=== PATIENT | female | born 1980 | race Caucasian/White ===

== ENCOUNTER → 2017-06-28 10:46 | Outpatient (CLI) | payer MEDICARE, MEDICAID, SELFPAY ==
--- NOTE | 2017-06-28 10:53 | ECHOD_ITS ---
Reason For Study: chest pain Procedure This was a 2D Doppler, Color Flow transthoracic echocardiogram. Exam performed in department. Left Ventricle Normal size and thickness. The estimated ejection fraction is 65 %. Normal diastology for age. No regional wall motion abnormalities noted. Right Ventricle Normal size and thickness. Normal systolic function. Atria Normal left atrium. Normal right atrium. Normal atrial septum. Mitral Valve The mitral valve is structurally normal. No prolapse or stenosis seen. Tricuspid Valve Normal tricuspid valve. Trivial tricuspid valve insufficiency. Right ventricular systolic pressure estimated to be 32 mmHg. Aortic Valve Trisinus/trileaflet aortic valve. Trivial aortic valve insufficiency. Pulmonic Valve Normal pulmonic valve. Great Vessels Normal aortic root. Normal arch. Normal inferior vena cava. Inferior vena cava collapse with sniff. Pericardium/Pleural No pericardial effusion. MMode/2D Measurements & Calculations LVIDd: 4.4 cm IVSd: 0.70 cm Ao root diam: 2.7 cm LVIDs: 3.1 cm LVPWd: 0.75 cm LA dimension: 3.9 cm RVDd: 2.8 cm FS: 30.4 % LAV(MOD-bp): 54.5 ml LA A4 area: 18.0 cm2 RA A4 area: 15.8 cm2 LAV(MOD-bp) Indexed: 26.8 ml/m2 LAV(MOD-sp2): 50.0 ml LAV(MOD-sp4): 56.1 ml Doppler Measurements & Calculations MV E max bridger: 87.9 cm/sec Lat Peak E' Bridger: 11.4 cm/sec Med Peak E' Bridger: 8.8 cm/sec MV A max bridger: 78.2 cm/sec E/E' lat: 7.7 E/E' med: 10.0 MV E/A: 1.1 Ao V2 max: 117.5 cm/sec LV V1 max: 94.8 cm/sec PA V2 max: 104.1 cm/sec Ao max P.5 mmHg LV V1 max P.6 mmHg PI end-d bridger: 64.9 cm/sec TR max bridger: 244.2 cm/sec TR max P.0 mmHg Interpretation Summary The estimated ejection fraction is 65 %. Normal diastology for age. Trivial tricuspid valve insufficiency. Right ventricular systolic pressure estimated to be 32 mmHg. There is no comparison study available. Ordering Physician: Will Shukla Performed By: Nicole Price RDCS, RVT
== END ==
PROVIDERS: Family Provider Family Medicine; PCP Family Medicine; Visit Provider Family Medicine
DX: R07.89 Other chest pain (principal); R00.2 Palpitations; R06.09 Other forms of dyspnea
CPT/HCPCS: 93225; 93226; 93306

== ENCOUNTER → 2017-07-18 12:42 | Outpatient (CLI) | payer MEDICARE, MEDICAID, SELFPAY ==
--- NOTE | 2017-07-18 12:48 | STE_ITS ---
Reason For Study: Chest Pain Stress Results Protocol: Nabeel Protocol Maximum Predicted HR: 185 bpm Target HR: 157 bpm% Max imum Predicted HR: 91 % DurationHeart Rate Stage (mm:ss) (bpm) BPCom ment Baseline 83 128/86 0.1 ML Definity Stage 1 3:00 15 1 144/82 Stage 2 1:31 16 9 / 0.1 ML definity Recoveryt 106 120/6 8 Stress Duration: 4:31 mm:ss Maximum Stress HR: 169 bpmM ETS: 7 Baseline Echocardiogram Findings Stress Echo Wall motion Data Resting WMIntermediate WMStress WM Resting Wall Motion Wall Motion Stress All segments Normal. All segments Hyperkinetic. Ejection Fraction 65 %. Ejection Fraction 75 %. Stress Results Heart rate response: C/W deconditioned heart rate response Blood pressure response: normal resting BP - appropriate response Arrhytmias: none Functional capacity: decreased Stopped secondary to: dyspnea; leg discomfort. EKG Data The baseline ECG displays normal sinus rhythm. The peak exercise ECG demonstrated somtic / motion artifact with no obvious ECG changes. Symptoms with Stress No c/o chest discomfort during exercise / recovery. Interpretation Summary Negative (Adequate) Stress Echocardiogram Ordering Physician: Will Shukla Referring Physician: Will Shukla Performed By: Nicole Price, [place], RVT
== END ==
PROVIDERS: Family Provider Family Medicine; PCP Family Medicine; Visit Provider Family Medicine
DX: R07.89 Other chest pain (principal); R00.2 Palpitations; R06.09 Other forms of dyspnea
CPT/HCPCS: 93017; 93350; Q9957; A4216; C8928

== ENCOUNTER 2017-07-18 13:45 | Emergency (ER) | payer MEDICARE, MEDICAID, SELFPAY ==
[2017-07-18 13:46] VITALS: BP 154/112; PULSE 126; RESP 16; TEMP 36.2; BMI 44.4
--- NOTE | 2017-07-18 15:10 | ED.VISSUMM ---
- ER Visit Summary Date of Service: 07/18/17 Chief Complaint: Diabetic foot wound History of Present Illness: The patient is a 36 F patient presenting for evaluation secondary to a diabetic foot wound. Patient has a history diabetes, states that her had and does not look to her feet in approximately 4 days, and she started to notice some pain in her left foot today. She states that it has been associated with pain with walking, and some mild chills and a wound on the sole of her left foot. She does not recall any injuries. Review of systems otherwise negative. Physical Examination: Patient is afebrile, there is some triage tachycardia of 126 but upon my exam patient's heart rate was 90. Lower extremity exam shows evidence of a diabetic foot wound over the sole of the first metatarsal phalangeal joint. No evidence of surrounding erythema. No overlying warmth. Normal range of motion of the foot and ankle. Test Results: None indicated Emergency Department Course and Treatment: Patient presented secondary to a diabetic foot wound. She is afebrile, wound is relatively new within the last 4 days, and she is nontoxic-appearing I do not believe the workup or x-ray are necessary at this point. Patient will be started on a course of Cipro was instructed on strict foot care and follow-up with her svp [employer] sales food [employer] cooking in the next 3 days. Disposition: Discharge Impression: 1. Diabetic foot wound This note was generated with smsPREP dictation software. It may contain incorrect words, spelling, and punctuation that were not noted in review of the chart prior to signing ED Disposition - Plan for ED Patient: Chief Complaint: Wound Diagnosis: Wound, open, foot Instructions: ED Foot Care Diabetic Prescriptions: Ciprofloxacin [Cipro] 500 mg PO BID #14 tab Additional Instructions: Followup with your [employer] within the next 3 days
--- NOTE | 2017-07-18 15:14 | ED.DCSUM_ITS ---
- ER Visit Summary Date of Service: 07/18/17 Chief Complaint: Diabetic foot wound History of Present Illness: The patient is a 36 F patient presenting for evaluation secondary to a diabetic foot wound. Patient has a history diabetes, states that her had and does not look to her feet in approximately 4 days, and she started to notice some pain in her left foot today. She states that it has been associated with pain with walking, and some mild chills and a wound on the sole of her left foot. She does not recall any injuries. Review of systems otherwise negative. Physical Examination: Patient is afebrile, there is some triage tachycardia of 126 but upon my exam patient's heart rate was 90. Lower extremity exam shows evidence of a diabetic foot wound over the sole of the first metatarsal phalangeal joint. No evidence of surrounding erythema. No overlying warmth. Normal range of motion of the foot and ankle. Test Results: None indicated Emergency Department Course and Treatment: Patient presented secondary to a diabetic foot wound. She is afebrile, wound is relatively new within the last 4 days, and she is nontoxic-appearing I do not believe the workup or x-ray are necessary at this point. 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 Disposition: Discharge Impression: 1. Diabetic foot wound This note was generated with Visier dictation software. It may contain incorrect words, spelling, and punctuation that were not noted in review of the chart prior to signing ED Disposition - Plan for ED Patient: Chief Complaint: Wound Diagnosis: Wound, open, foot Instructions: ED Foot Care Diabetic Prescriptions: Ciprofloxacin [Cipro] 500 mg PO BID #14 tab Additional Instructions: Followup with your hedge fund principal within the next 3 days
== END 2017-07-18 15:54 | disposition home or self-care (01) ==
PROVIDERS: Emergency Provider Emergency Medicine; Family Provider Family Medicine; PCP Family Medicine
DX: E11.69 Type 2 diabetes mellitus with other specified complication (principal); S91.302A Unspecified open wound, left foot, initial encounter; X58.XXXA Exposure to other specified factors, initial encounter; Y93.89 Activity, other specified; Y92.9 Unspecified place or not applicable; Y99.9 Unspecified external cause status; Q05.9 Spina bifida, unspecified; F41.9 Anxiety disorder, unspecified; F32.9 Major depressive disorder, single episode, unspecified; E66.9 Obesity, unspecified
CPT/HCPCS: 93017; 93350; 99283; Q9957; A4216; C8928

== ENCOUNTER 2017-07-22 17:12 | Emergency (ER) | payer MEDICARE, MEDICAID, SELFPAY ==
[2017-07-22 17:13] VITALS: BP 162/97; PULSE 91; RESP 16; TEMP 36.4; O2SAT 95; BMI 44.4
--- NOTE | 2017-07-22 17:56 | ED.VISSUMM ---
- ER Visit Summary Date of Service: 07/22/17 Chief Complaint: Left foot pain radiating to knee and urinary symptoms History of Present Illness: The patient is a 36 F who was seen earlier this week for left foot pain. 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 She denies fever, chills night sweats. She states the calluses black and she had bleeding from the callus. She denies fever, chills night sweats. She denies polyuria, polydipsia, polyphagia or nocturia. She denies any change in vision and specifically blurred vision. She denies trauma. She also reports dysuria, frequency, and urgency. She states she has back pain but cannot localize the back pain. She reports abdominal pain but cannot localize the abdominal pain. Physical Examination: Vital signs remarkable for blood pressure 162/97. She is not tachycardic, tachypnic or febrile. HEENT is unremarkable. Heart is regular without murmur, gallop or rub. S1 and S2 are normal. Lungs are clear to auscultation with good movement of air bilaterally. Patient has pain out of proportion to light tactile stimulus of the abdomen and back. There is no particular area of greatest discomfort. Midline well-healed surgical scar noted secondary to spina bifida. There is a callus plantar surface left foot near the MTP joint of the great toe. There is no bleeding. There is no redness, warmth, lymphangitis or popliteal lymphadenopathy. Test Results: UA was obtained and reveals glucose. There is no pyuria, hematuria or bacteria on microscopic examination of the urine. B GT is 187 Emergency Department Course and Treatment: Since she has diabetic a blood glucose test was obtained. Because of her urinary symptoms a UA was obtained. She requested pain medicine for her callus. Treatment Plan: Keep appointment with latin american studies director and if she continues to have urologic symptoms follow-up with her primary care physician Dr. Will Shukla Disposition: Discharge to home Impression: 1. Left foot pain secondary to callus plantar surface 2. Hyperglycemia in type II diabetic This note was generated with Qotureation software. It may contain incorrect words, spelling, and punctuation that were not noted in review of the chart prior to signing ED Disposition - Plan for ED Patient: Disposition: Home or Assisted Living Chief Complaint: Wound Instructions: Treating Corns and Calluses, ED Hyperglycemia Diabetic Referrals: Will Shukla MD [Primary Care Provider] - As Needed Additional Instructions: Keep appointment with latin american studies director to remove your callus.
[2017-07-22 18:06] LABS: Bacteria 0 SEEN /hpf (None Seen); Mucous, Urine 0 SEEN /hpf (<or=2+); Red Blood Cells-Urine 0 SEEN /hpf (0-5)
[2017-07-22 18:09] LABS: Color, Urine Straw (Yellow); Glucose, Dipstick 250 mg/dl (Normal); Ketone-Dipstick Negative (Negative); Leukocyte Esterase-Dipstick Negative /ul (Negative); Nitrite-Dipstick Negative (Negative); Occult Blood-Urine Negative /ul (Negative); Protein-Dipstick 15 mg/dl (Negative); Urine Bilirubin Dipstick Negative (Negative); Urine Clarity Sl. Cloudy (Clear); Urine Urobilinogen Normal (Normal)
[2017-07-22 18:19] LABS: Squamous Epithelial Cells - UA 0-5 SEEN /hpf (5-10)
[2017-07-22 18:20] LABS: White Blood Cells 0-5 SEEN /hpf (0-5)
[2017-07-22 18:46] LABS: Bedside Glucose 187 mg/dL (70-110)
[2017-07-22 19:12] VITALS: BP 135/96; PULSE 65; RESP 16; O2SAT 98
--- NOTE | 2017-07-22 19:13 | ED.RN ---
PT VERBALIZES UNDERSTANDING OF D/C INSTRUCTIONS. AMBULATORY HOME BY SELF.
== END 2017-07-22 19:14 | disposition home or self-care (01) ==
PROVIDERS: Emergency Provider Emergency Medicine; Family Provider Family Medicine; PCP Family Medicine
DX: L84 Corns and callosities (principal); M79.672 Pain in left foot; E11.65 Type 2 diabetes mellitus with hyperglycemia; E66.9 Obesity, unspecified; Q05.9 Spina bifida, unspecified; Z87.440 Personal history of urinary (tract) infections
CPT/HCPCS: 81001; 82962; 99282

== ENCOUNTER 2017-07-25 09:56 | Emergency (ER) | payer MEDICARE, MEDICAID, SELFPAY ==
[2017-07-25 09:57] VITALS: BP 146/102; PULSE 101; RESP 20; TEMP 36.7; O2SAT 99; BMI 44.4
[2017-07-25 10:32] LABS: Bacteria 0 SEEN /hpf (None Seen); Mucous, Urine 0 SEEN /hpf (<or=2+); Red Blood Cells-Urine 0 SEEN /hpf (0-5); White Blood Cells 0 SEEN /hpf (0-5)
--- NOTE | 2017-07-25 10:35 | RAD_ITS ---
STUDY: X-RAY - ACUTE ABDOMINAL SERIES REASON FOR EXAM: Female, 36 years old. Abdominal pain. TECHNIQUE: Single view of the chest. Supine, and erect view(s) of the abdomen were obtained. COMPARISON: None. FINDINGS: Calcified granuloma in the right upper lobe. Normal size heart. Normal mediastinum and cristiano. Normal visualized pulmonary arteries. Normal visualized aortic arch and descending thoracic aorta. There is an abundance of fecal material throughout the colon. There is a 7 mm calcification in the left midabdomen most likely representing a calcified lymph node. The symptoms of spina bifida involving the L3-L4 and L5 vertebrae. RAD/Acute Abdomen Inc Chest IMPRESSION: Large amount of fecal material is seen in the colon. Electronically Signed: Stephan Sood MD at 11:15 EST Tel [phone], Service support ,
[2017-07-25 10:41] LABS: Color, Urine Yellow (Yellow); Glucose, Dipstick 1000 mg/dl (Normal); Ketone-Dipstick Negative (Negative); Leukocyte Esterase-Dipstick Negative /ul (Negative); Nitrite-Dipstick Negative (Negative); Occult Blood-Urine 10 /ul (Negative); Protein-Dipstick Negative (Negative); Urine Bilirubin Dipstick Negative (Negative); Urine Clarity Clear (Clear); Urine Urobilinogen Normal (Normal)
[2017-07-25 10:43] LABS: Internal QC Validated? YES +Cl - CLEAR BKGD; Pregnancy, Urine Negative Negative
[2017-07-25 10:47] LABS: Hematocrit 37.2 % (37-47); Hemoglobin 12.2 g/dl (12.0-15.0); Mean Corp Hgb Conc 32.8 g/gl (32-36); Mean Corpuscular Hgb 29.4 pg (27.0-32.0); Mean Corpuscular Volume 89.6 fL (81-99); RBC Distribution Width CV 13.8 % (11.6-14.6); RBC Distribution Width SD 45.6 fl (35.1-43.9); Red Blood Count 4.15 M/mm3 (4.2-5.4); White Blood Count 12.1 K/mm3 (4.4-11.0)
[2017-07-25 10:48] LABS: Absolute Lymphocyte Count 2.18 X10^3/ul (0.83-4.51); Absolute Neutrophil Count 8.5 X10^3/uL (2.0-7.7); Basophil% 0.2 % (0-1); Eosinophils% 2.3 % (0-5); Lymphocyte # 2.18 X10^3/ul (4.0); Mean Platelet Vol. 10.3 fl (6.2-12.0); Monocyte# 1.05 X10^3/uL; Monocyte% 8.7 % (0-10); Neutrophil # 8.52 X10^3/uL (2.7-7.7); Neutrophil % 70.2 % (47-70); Platelet Count 189 K/mm3 (150-450)
[2017-07-25 10:49] LABS: Basophil# 0.03 X10^3/uL; Eosinophil# 0.28 X10^3/uL; POSITIVE COUNT NO; POSITIVE DIFFERENTIAL NO; POSITIVE MORPHOLOGY NO
[2017-07-25 10:55] LABS: ALB/GLOB Ratio 0.7 RATIO (0.9-2.4); AST(SGOT) 19 U/L (15-37); Alanine Aminotransfer ALT/SGPT 33 U/L (13-56); Albumin, Serum 3.4 g/dL (3.2-5.0); Alkaline Phosphatase 88 U/L (45-117); Anion Gap 4 (5-15); BUN 11 mg/dL (7-18); BUN/Creat Ratio 9.5 RATIO (10-20); Calcium,Total 8.8 mg/dL (8.5-10.1); Chloride 103 mmol/L (98-107); Creatinine, Serum 1.16 mg/dL (0.55-1.02); EST Glomerular Filtration Rate 56 mL/min (>60); Est Glom Filt Rate - Afr Amer 68 mL/min (>60); Estimated Creatinine Clearance 51.08 ml/min; Globulin 4.6 g/dL (2.2-4.2); Glucose 347 mg/dL (74-106); Lipase 173 U/L (73-393); Potassium 3.9 mmol/L (3.5-5.1); Sodium Level 135 mmol/L (136-145)
[2017-07-25 10:59] LABS: Squamous Epithelial Cells - UA 0-5 SEEN /hpf (5-10)
--- NOTE | 2017-07-25 11:33 | ED.DCSUM_ITS ---
- ER Visit Summary Date of Service: 07/25/17 Chief Complaint: Abdominal pain History of Present Illness: The patient is a 36 F who presents with abdominal pain. She complains of about 1 week of diffuse nonfocal aching and cramping abdominal pain. She reports about 1-2 weeks of nausea. She has chronic urinary frequency and dysuria. She was seen a few days ago and checked for a UTI and that was unremarkable. She has noticed that she has had small hard stools over the past 1-2 weeks but no good bowel movement. No vomiting. No fever. Physical Examination: Afebrile vitals notable for heart rate 101 Heart regular Lungs clear Abdomen soft with some mild diffuse tenderness no guarding no rebound she is not distended Test Results: Laboratory studies notable for white blood cell count 12.1 creatinine 1.16 glucose 347. Anion gap is not elevated and bicarbonate is normal. Urinalysis normal and negative. Abdominal series shows a large amount of fecal material and no evidence of obstruction on my review. Emergency Department Course and Treatment: History examination of findings are consistent with constipation. She was advised to begin MiraLAX. She should follow-up with her primary care physician. She understands return for new or worsening symptoms. She was discharged. Treatment Plan: [] Disposition: Discharge Impression: Constipation This note was generated with CM Sistemi dictation software. It may contain incorrect words, spelling, and punctuation that were not noted in review of the chart prior to signing ED Disposition - Plan for ED Patient: Chief Complaint: Abd Pain Referrals: Will Shukla MD [Primary Care Provider] -
--- NOTE | 2017-07-25 11:33 | ED.DEP ---
ED Disposition - Plan for ED Patient: Chief Complaint: Abd Pain Instructions: ED Constipation Referrals: Will Shukla MD [Primary Care Provider] -
[2017-07-25 11:41] VITALS: BP 128/76; PULSE 83; RESP 16; O2SAT 100
== END 2017-07-25 11:44 | disposition home or self-care (01) ==
PROVIDERS: Emergency Provider Emergency Medicine; Family Provider Family Medicine; PCP Family Medicine
DX: K59.00 Constipation, unspecified (principal); E11.9 Type 2 diabetes mellitus without complications; I10 Essential (primary) hypertension; Q05.9 Spina bifida, unspecified
CPT/HCPCS: 74022; 80053; 81001; 81025; 83690; 85025; 99282; A4216

== ENCOUNTER 2017-08-22 22:29 | Emergency (ER) | payer MEDICARE, MEDICAID, SELFPAY ==
[2017-08-22 22:30] VITALS: BP 156/92; PULSE 100; RESP 16; TEMP 36.2; O2SAT 96; BMI 43.0
--- NOTE | 2017-08-22 22:40 | RAD_ITS ---
STUDY: X-RAY - ACUTE ABDOMINAL SERIES REASON FOR EXAM: Female, 36 years old. Vomiting and constipation TECHNIQUE: Single view of the chest. Supine, and erect view(s) of the abdomen were obtained. COMPARISON: Radiographs 07/25/2017, CT scan 06/29/2016 FINDINGS: Normal lung volumes. There is a 1.7 cm density overlying the anterior right second rib which was also present previously but not mentioned. Recommend further evaluation with CT scan. Normal size heart. Normal mediastinum and cristiano. Normal visualized pulmonary arteries. Normal visualized aortic arch and descending thoracic aorta. There is a non-specific bowel gas pattern. The soft tissue structures of the abdomen and pelvis are unremarkable. Previous long segment lumbar laminectomy. Calcifications overlying the right lower quadrant and left midabdomen are in the dorsal subcutaneous tissues on CT scan. RAD/Acute Abdomen Inc Chest IMPRESSION: No definite acute abnormality in the abdomen or pelvis. 1.7 cm nodular density in the right upper lobe, CT scan recommended. Electronically Signed: Ki Ballesteros MD at 23:09 EDT , Service support ,
--- NOTE | 2017-08-22 23:01 | ED.DCSUM_ITS ---
- ER Visit Summary Date of Service: 08/22/17 Chief Complaint: Vomiting poop History of Present Illness: The patient is a 36 F states that she is vomiting poop. She states that she is knows that she is vomiting food because it tastes like it. She states that years ago she had a surgery that put her appendix on her colon. She states that she can irrigate her bowels this way due to chronic constipation. She was seen recently for constipation and thought she was doing better until tonight when she began to vomit. She has no vomiting medicine at home. Physical Examination: Afebrile vital signs are stable Gen: Well-nourished well-developed Head: Normocephalic atraumatic Eyes: Perrl EOMI ENT: TMs clear no rhinorrhea moist mucous membranes Neck: Supple no lymphadenopathy no JVD nontender CVS: Regular rate rhythm no murmurs normal S1-S2 Respiratory: No distress clear to auscultation bilaterally chest nontender Abdomen: Soft patient reports diffuse tenderness but the abdomen is soft and no guarding or rebound nondistended normal bowel sounds no masses Back: Nontender Extremity: Nontender no edema Skin: Normal color no rash Neuro: alert orientated ?3 CN II-XII intact normal strength sensation reflexes gait cerebellar Psych: Normal affect normal mood Test Results: Acute abdominal series shows a large amount of stool but no bowel obstruction Emergency Department Course and Treatment: Patient was advised she may benefit from an enema and that she could do this at home. I will give her some Phenergan. Impression: 1. Vomiting 2. Chronic constipation This note was generated with HumanCloud dictation software. It may contain incorrect words, spelling, and punctuation that were not noted in review of the chart prior to signing ED Disposition - Plan for ED Patient: Disposition: Home or Assisted Living Chief Complaint: Constipation Instructions: ED Nausea Vomiting Prescriptions: proMETHazine tablet [Phenergan] 25 mg PO Q6H PRN PRN #10 tab PRN Reason: Nausea Referrals: Will Shukla MD [Primary Care Provider] - 1-2 Days if not improving
[2017-08-22] MEDS: proMETHazine 25 MG/ML Syringe IM (23:08)
[2017-08-22] MEDS: proMETHazine 25 MG Tablet PO (23:42)
[2017-08-22 23:43] VITALS: PULSE 87; RESP 18; O2SAT 98
== END 2017-08-22 23:43 | disposition home or self-care (01) ==
PROVIDERS: Emergency Provider Emergency Medicine; Family Provider Family Medicine; PCP Family Medicine
DX: R11.2 Nausea with vomiting, unspecified (principal); K59.00 Constipation, unspecified; E11.9 Type 2 diabetes mellitus without complications; Q05.9 Spina bifida, unspecified
CPT/HCPCS: 74022; 99282

== ENCOUNTER 2017-09-15 14:32 | Emergency (ER) | payer MEDICARE, MEDICAID, SELFPAY ==
[2017-09-15 14:33] VITALS: BP 156/101; PULSE 83; RESP 18; TEMP 36.7; O2SAT 98; BMI 43.0
--- NOTE | 2017-09-15 15:11 | EKG12_ITS ---
Test Reason : ABD PAIN Blood Pressure : / mmHG Vent. Rate : 074 BPM Atrial Rate : 074 BPM P-R Int : 148 ms QRS Dur : 080 ms QT Int : 388 ms P-R-T Axes : 022 029 023 degrees QTc Int : 430 ms Normal sinus rhythm Normal ECG Confirmed by STEFANI FITZGERALD, RASHAWN ([id number]), assistant film editor LASHA HAY ([id number]) on 09/18/2017 2:37:25 PM Referred By: Arnold Caban Confirmed By:RASHAWN KO MD
--- NOTE | 2017-09-15 15:11 | CT_ITS ---
CT Abdomen And Pelvis W/ Contrast INDICATION: ABD PAIN RADIATING INTO BACK, BLOATING, ABNORMAL BM X 2 MONTHSHX SPINAL BIFDA, CHOLECYSTECTOMY, KNAPP SOTMA, KS, NEUROGENIC BLADDER, KNOWN HERNIA COMPARISON: June 2016 TECHNIQUE: Axial CT imaging of the abdomen and pelvis with oral and intravenous contrast. Coronal and sagittal reformatted images. Radiation dose optimization technique applied. 100 mL of Isovue-300 were given intravenously. FINDINGS: Visualized lung bases are clear. The heart size is normal. The liver is diffusely low in density suggestive of fatty infiltration. Liver measures 20 cm in craniocaudal dimension. Gallbladder is not visualized, may be contracted or surgically absent. Spleen, adrenal glands, and pancreas are unremarkable. The kidneys demonstrate normal size and cortical enhancement on the left, some cortical thinning and cortical irregularities on the right. Right kidney demonstrates moderate chronic appearing hydronephrosis of the right ureter is dilated. Left ureter appears normal in caliber. Bowel loops are nondistended. Oral contrast material advances regularly throughout the small bowel loops. An umbilical hernia with a small bowel loop is again noted, nonobstructed. Findings of repaired spina bifida again noted and mildly distended urinary bladder. CT/Abdomen/Pelvis WITH Contrast IMPRESSION: Findings compatible with repaired spina bifida. Findings compatible with neurogenic bladder, which is mildly distended, and chronic-appearing distention of the right ureter and moderate right hydronephrosis with cortical renal thinning. Ureteral distention is new compared to June 2016. Stable nonobstructed umbilical hernia containing a loop of small bowel. Questionable fatty infiltration of the liver with prominent liver size. at 1931 Reported and signed by: Lyla Xavier MD Electronically Signed: Lyla Xavier MD at 19:29 EDT Tel , Service support ,
--- NOTE | 2017-09-15 15:12 | ED.VISSUMM ---
- ER Visit Summary Date of Service: 09/15/17 Chief Complaint: Abdominal pain History of Present Illness: The patient is a 36 F intermittent generalized abdominal pain over the past 2 months. States seen twice in the ED a month ago. States she has 2 separate x-rays. First time told she was constipated. Was told to use MiraLAX. Return ended with vomiting. Again treated for symptoms told to continue constipation treatment. She states she has been in contact with her PCP and spoke to him 10 days ago. She states she cannot get an appointment to the end of September. She was told to go to [facility] for evaluation 10 days ago, however unable to get a ride up that way. She has history of constipation. Patient states had a Bowles stoma 2 years ago at [facility]. She had a colonoscopy prior by surgeon at that time. No history of EGD. Currently complains of abdominal pain no vomiting or diarrhea. Complains of nausea. States that urine urgency. Last menstrual period was earlier this month. Physical Examination: General: Alert and oriented ?3, no acute distress HEENT: Normocephalic, atraumatic. Moist mucosa membranes Neck: supple, nontender. Cardiovascular: Regular rate and rhythm, no murmurs Respiratory: Normal breath sounds, symmetric, no distress Abdomen: Soft, generalized tenderness with no guarding or rebound, nondistended, normal bowel sounds Extremities: Nontender, no edema, pulses intact ?4 Neuro: no focal neurological deficits. Test Results: White count 11.4. Hemoglobin 12.6. Creatinine 0.91. Lipase 118. Liver enzymes normal. UA negative. HCG negative. CT abdomen pelvis with oral and IV contrast notes neurogenic bladder with right hydroureter, umbilical hernia, non-strangulated or incarcerated. No obstruction. Emergency Department Course and Treatment: Patient reports 2 months of symptoms, seen twice in the ED with chest x-rays and no workup. Unable to get into her PCP. Workup initially in ED with contrast CT and labs. Labs normal. Contrast CT notes a neurogenic bladder with hydroureter, non-strangulated umbilical hernia. Patient history of spinal bifida. She states she has a known neurogenic bladder and has seen urology at [facility]. She reports that while she is able to urinate there is no issues. She will follow-up with them as needed. She has a umbilical hernia. She is nontender currently in that region. I reviewed records noted she had previous images with similar findings. She states she was not told about this in the past. Her gallbladder was removed reportedly by Dr. Drew. She is given follow-up with him outpatient reevaluation. Treatment Plan: [] Disposition: Discharge Impression: 1. Abdominal pain 2. Neurogenic bladder 3. Umbilical hernia This note was generated with Mytonomy dictation software. It may contain incorrect words, spelling, and punctuation that were not noted in review of the chart prior to signing ED Disposition - Plan for ED Patient: Disposition: Home or Assisted Living Chief Complaint: Abd Pain Diagnosis: Abdominal pain, Umbilical hernia, Neurogenic bladder Referrals: Will Shukla MD [Primary Care Provider] -
--- NOTE | 2017-09-15 15:15 | ED.DCSUM_ITS ---
- ER Visit Summary Date of Service: 09/15/17 Chief Complaint: Abdominal pain History of Present Illness: The patient is a 36 F intermittent generalized abdominal pain over the past 2 months. States seen twice in the ED a month ago. States she has 2 separate x-rays. First time told she was constipated. Was told to use MiraLAX. Return ended with vomiting. Again treated for symptoms told to continue constipation treatment. She states she has been in contact with her PCP and spoke to him 10 days ago. She states she cannot get an appointment to the end of September. She was told to go to [facility] for evaluation 10 days ago, however unable to get a ride up that way. She has history of constipation. Patient states had a Bowles stoma 2 years ago at [facility]. She had a colonoscopy prior by surgeon at that time. No history of EGD. Currently complains of abdominal pain no vomiting or diarrhea. Complains of nausea. States that urine urgency. Last menstrual period was earlier this month. Physical Examination: General: Alert and oriented ?3, no acute distress HEENT: Normocephalic, atraumatic. Moist mucosa membranes Neck: supple, nontender. Cardiovascular: Regular rate and rhythm, no murmurs Respiratory: Normal breath sounds, symmetric, no distress Abdomen: Soft, generalized tenderness with no guarding or rebound, nondistended , normal bowel sounds Extremities: Nontender, no edema, pulses intact ?4 Neuro: no focal neurological deficits. Test Results: White count 11.4. Hemoglobin 12.6. Creatinine 0.91. Lipase 118. Liver enzymes normal. UA negative. HCG negative. CT abdomen pelvis with oral and IV contrast notes neurogenic bladder with right hydroureter, umbilical hernia, non-strangulated or incarcerated. No obstruction. Emergency Department Course and Treatment: Patient reports 2 months of symptoms , seen twice in the ED with chest x-rays and no workup. Unable to get into her PCP. Workup initially in ED with contrast CT and labs. Labs normal. Contrast CT notes a neurogenic bladder with hydroureter, non-strangulated umbilical hernia. Patient history of spinal bifida. She states she has a known neurogenic bladder and has seen urology at [facility]. She reports that while she is able to urinate there is no issues. She will follow-up with them as needed. She has a umbilical hernia. She is nontender currently in that region. I reviewed records noted she had previous images with similar findings. She states she was not told about this in the past. Her gallbladder was removed reportedly by Dr. Drew. She is given follow-up with him outpatient reevaluation. Treatment Plan: [] Disposition: Discharge Impression: 1. Abdominal pain 2. Neurogenic bladder 3. Umbilical hernia This note was generated with [employer] dictation software. It may contain incorrect words, spelling, and punctuation that were not noted in review of the chart prior to signing ED Disposition - Plan for ED Patient: Disposition: Home or Assisted Living Chief Complaint: Abd Pain Diagnosis: Abdominal pain, Umbilical hernia, Neurogenic bladder Referrals: Will Shukla MD [Primary Care Provider] -
[2017-09-15] MEDS: 0.9% Normal Saline 1,000 ML 150 ML IV (15:31)
[2017-09-15] MEDS: Ondansetron 4 MG/2 ML Vial IV (15:31)
[2017-09-15] MEDS: Morphine 4 MG/ML Syringe IV (15:32)
[2017-09-15 16:01] LABS: Bacteria 0 SEEN /hpf (None Seen); Mucous, Urine 0 SEEN /hpf (<or=2+); Red Blood Cells-Urine 0 SEEN /hpf (0-5); White Blood Cells 0 SEEN /hpf (0-5)
[2017-09-15 16:09] LABS: Color, Urine Yellow (Yellow); Glucose, Dipstick 1000 mg/dl (Normal); Ketone-Dipstick Negative (Negative); Leukocyte Esterase-Dipstick Negative /ul (Negative); Nitrite-Dipstick Negative (Negative); Occult Blood-Urine Negative /ul (Negative); Protein-Dipstick 15 mg/dl (Negative); Specific Gravity, Urine 1.015 (1.002-1.030); Urine Bilirubin Dipstick Negative (Negative); Urine Clarity Clear (Clear); Urine Urobilinogen Normal (Normal)
[2017-09-15 16:12] LABS: Internal QC Validated? YES +Cl - CLEAR BKGD; Pregnancy, Urine Negative Negative
[2017-09-15 16:18] LABS: Squamous Epithelial Cells - UA 0-5 SEEN /hpf (5-10)
[2017-09-15 18:18] LABS: Absolute Lymphocyte Count 3.01 X10^3/ul (0.83-4.51); Absolute Neutrophil Count 7.2 X10^3/uL (2.0-7.7); Basophil# 0.04 X10^3/uL; Basophil% 0.3 % (0-1); Eosinophil# 0.24 X10^3/uL; Eosinophils% 2.1 % (0-5); Hematocrit 38.8 % (37-47); Hemoglobin 12.6 g/dl (12.0-15.0); Lymphocyte # 3.01 X10^3/ul (4.0); Lymphocyte % 26.3 % (19-41); Mean Corp Hgb Conc 32.5 g/gl (32-36); Mean Corpuscular Hgb 29.4 pg (27.0-32.0); Mean Corpuscular Volume 90.4 fL (81-99); Mean Platelet Vol. 10.2 fl (6.2-12.0); Monocyte# 0.92 X10^3/uL; Neutrophil # 7.16 X10^3/uL (2.7-7.7); Neutrophil % 62.7 % (47-70); Platelet Count 208 K/mm3 (150-450); RBC Distribution Width CV 14.2 % (11.6-14.6); RBC Distribution Width SD 46.5 fl (35.1-43.9); Red Blood Count 4.29 M/mm3 (4.2-5.4); White Blood Count 11.4 K/mm3 (4.4-11.0)
[2017-09-15 18:30] LABS: POSITIVE COUNT NO; POSITIVE DIFFERENTIAL NO; POSITIVE MORPHOLOGY NO
[2017-09-15 18:36] LABS: ALB/GLOB Ratio 0.8 RATIO (0.9-2.4); AST(SGOT) 32 U/L (15-37); Alanine Aminotransfer ALT/SGPT 53 U/L (13-56); Albumin, Serum 3.5 g/dL (3.2-5.0); Alkaline Phosphatase 81 U/L (45-117); Anion Gap 5 (5-15); BUN 12 mg/dL (7-18); BUN/Creat Ratio 13.1 RATIO (10-20); Calcium,Total 8.5 mg/dL (8.5-10.1); Chloride 106 mmol/L (98-107); Creatinine, Serum 0.91 mg/dL (0.55-1.02); EST Glomerular Filtration Rate 74 mL/min (>60); Est Glom Filt Rate - Afr Amer 90 mL/min (>60); Estimated Creatinine Clearance 68.25 ml/min; Globulin 4.2 g/dL (2.2-4.2); Glucose 152 mg/dL (74-106); Lipase 115 U/L (73-393); Protein, Total 7.7 g/dL (6.4-8.2); Sodium Level 138 mmol/L (136-145)
--- NOTE | 2017-09-16 02:16 | ED.RN ---
see computer down time charting from [id number]
== END 2017-09-15 18:30 | disposition home or self-care (01) ==
PROVIDERS: Emergency Provider Emergency Medicine; Family Provider Family Medicine; PCP Family Medicine
DX: R10.84 Generalized abdominal pain (principal); N31.9 Neuromuscular dysfunction of bladder, unspecified; K42.9 Umbilical hernia without obstruction or gangrene
CPT/HCPCS: 74177; 80053; 81001; 81025; 83690; 85025; 93005; 96374; 99282; 99283; J7030; Q9967; A4216; J2405

== ENCOUNTER 2017-10-14 18:36 | Emergency (ER) | payer MEDICARE, MEDICAID, SELFPAY ==
[2017-10-14 18:36] VITALS: BP 139/100; PULSE 91; RESP 18; TEMP 36.2; O2SAT 97; BMI 45.3
--- NOTE | 2017-10-14 19:20 | ED.VISSUMM ---
- ER Visit Summary Date of Service: 10/14/17 Chief Complaint: Abdominal umbilical hernia pain History of Present Illness: The patient is a 36 F no history of umbilical hernia. She has had prior abdominal surgeries for cholecystectomy and some type of stoma procedure. Patient states she saw Dr. Fawn Coyne at the [facility] to have her hernia repaired. Due to her complicated prior abdominal surgery Dr. Coyne has referred her up to [facility] and they are actually going to evaluate her on Monday. Patient states she has had intermittent abdominal pain for last several months. Associated nausea. No vomiting. No diarrhea. No fever. She has had bowel movements all week. She denies any dysuria. She also has a neurogenic bladder. She denies any fever. She has had pain like this before. She has never had a bowel obstruction. Physical Examination: Well-appearing young female. Vital signs are stable afebrile. She does not look septic toxic in any acute distress. H EENT exam unremarkable. Moist wheeze members. Neck nontender no lymphadenopathy. Lungs clear to auscultation bilaterally. Heart regular rhythm no murmur rate about 90. Abdomen soft nondistended normal bowel sounds. Mildly obese. No peritoneal signs. No signs of obstruction or distention. She does have a easily reducible umbilical hernia. Both the right upper right lower quadrant unremarkable. There are no peritoneal signs. She is moving all 4 extremities. Neurologically she is awake and alert without focal deficits. Back exam nontender. Test Results: Medically the patient has no signs of bowel obstruction. She does not need any imaging. She had a full workup September 15 which was negative other than the hernia and neurogenic bladder. Emergency Department Course and Treatment: Discharge to home. Follow-up with her [facility] appointment on Monday. Treatment Plan: [] Disposition: Discharge Impression: Acute on chronic abdominal pain History of umbilical hernia easily reducible History of spina bifida and neurogenic bladder This note was generated with [employer] dictation software. It may contain incorrect words, spelling, and punctuation that were not noted in review of the chart prior to signing ED Disposition - Plan for ED Patient: Chief Complaint: Abd Pain Referrals: Will Shukla MD [Primary Care Provider] -
--- NOTE | 2017-10-14 19:23 | ED.DCSUM_ITS ---
- ER Visit Summary Date of Service: 10/14/17 Chief Complaint: Abdominal umbilical hernia pain History of Present Illness: The patient is a 36 F no history of umbilical hernia. She has had prior abdominal surgeries for cholecystectomy and some type of stoma procedure. Patient states she saw Dr. Fawn Coyne at the [facility] to have her hernia repaired. Due to her complicated prior abdominal surgery Dr. Coyne has referred her up to [facility] and they are actually going to evaluate her on Monday. Patient states she has had intermittent abdominal pain for last several months. Associated nausea. No vomiting. No diarrhea. No fever. She has had bowel movements all week. She denies any dysuria. She also has a neurogenic bladder. She denies any fever. She has had pain like this before. She has never had a bowel obstruction. Physical Examination: Well-appearing young female. Vital signs are stable afebrile. She does not look septic toxic in any acute distress. H EENT exam unremarkable. Moist wheeze members. Neck nontender no lymphadenopathy. Lungs clear to auscultation bilaterally. Heart regular rhythm no murmur rate about 90. Abdomen soft nondistended normal bowel sounds. Mildly obese. No peritoneal signs. No signs of obstruction or distention. She does have a easily reducible umbilical hernia. Both the right upper right lower quadrant unremarkable. There are no peritoneal signs. She is moving all 4 extremities. Neurologically she is awake and alert without focal deficits. Back exam nontender. Test Results: Medically the patient has no signs of bowel obstruction. She does not need any imaging. She had a full workup September 15 which was negative other than the hernia and neurogenic bladder. Emergency Department Course and Treatment: Discharge to home. Follow-up with her [facility] appointment on Monday. Treatment Plan: [] Disposition: Discharge Impression: Acute on chronic abdominal pain History of umbilical hernia easily reducible History of spina bifida and neurogenic bladder This note was generated with [employer] dictation software. It may contain incorrect words, spelling, and punctuation that were not noted in review of the chart prior to signing ED Disposition - Plan for ED Patient: Chief Complaint: Abd Pain Referrals: Will Shukla MD [Primary Care Provider] -
--- NOTE | 2017-10-14 19:25 | DCINST.ED_ITS ---
ED Disposition - Plan for ED Patient: Disposition: Home or Assisted Living Chief Complaint: Abd Pain Additional Instructions: Tylenol and/or Motrin for pain. Plenty of fluids such as salt water and fruits, vegetables and fiber for constipation. Follow-up with your [facility] appointment on Monday. Return to ER if increasing abdominal pain, distention, fever or intractable vomiting. Currently there are no signs of bowel obstruction.
[2017-10-14 19:34] VITALS: RESP 20
== END 2017-10-14 19:34 | disposition home or self-care (01) ==
LOC: ED 19:29
PROVIDERS: Emergency Provider Emergency Medicine; Family Provider Family Medicine; PCP Family Medicine
DX: G89.29 Other chronic pain (principal); R10.9 Unspecified abdominal pain; E11.9 Type 2 diabetes mellitus without complications; Q05.9 Spina bifida, unspecified; N31.9 Neuromuscular dysfunction of bladder, unspecified; Z90.49 Acquired absence of other specified parts of digestive tract; F32.9 Major depressive disorder, single episode, unspecified; F41.9 Anxiety disorder, unspecified
CPT/HCPCS: 99282

== ENCOUNTER 2017-11-07 22:39 | Emergency (ER) | payer MEDICARE, MEDICAID, SELFPAY ==
[2017-11-07 22:40] VITALS: BP 103/80; PULSE 89; RESP 16; TEMP 36.9; O2SAT 97; BMI 43.3
--- NOTE | 2017-11-07 23:06 | CT_ITS ---
STUDY: CT ABDOMEN AND PELVIS WITHOUT CONTRAST REASON FOR EXAM: Female, 36 years old. Severe abdominal pain and nausea since 10:00 PM. RADIATION DOSAGE (If Supplied By Facility): CTDIvol = ( 19.85 ) mGy, DLP = ( 1016.85 ) mGycm TECHNIQUE: Transaxial images were obtained from the dome of the diaphragm to the symphysis pubis without oral contrast, and without intravenous contrast. Sagittal and coronal images were reconstructed. Individualized dose optimization techniques were used for this CT. COMPARISON: September 15, 2017. FINDINGS: Calcified right lower lobe lung nodule. The visualized portions of the heart are within normal limits. There is decreased attenuation of the liver consistent with steatosis. Mild hepatomegaly. Gallbladder not visualized consistent with a prior cholecystectomy. Normal spleen. Normal pancreas. Normal bilateral adrenal glands. Mild dilatation of the right renal collecting system and right ureter without evidence of obstructing stone.. Normal left kidney. Normal visualized stomach. Normal small intestine. Normal colon. There is non-visualization of the appendix. Normal abdominal aorta. Normal inferior vena cava. Normal retroperitoneum. No intra-abdominal free air. Mild bladder wall thickening noted previously. Normal visualized uterus. No adnexal masses seen. There is a 3.6 x 3.2 cm umbilical hernia containing loops of small bowel, unchanged. Laminectomies at multiple levels in the lumbar spine compatible with spinal bifida repair by history provided in a prior report. CT/Abdomen/Pelvis without Cont IMPRESSION: No evidence of bowel obstruction. Appendix not visualized. Umbilical hernia containing loops of small bowel without evidence of strangulation, not significantly changed. Mild dilatation of the right renal collecting system and right ureter without evidence of obstructing stone. Consider urology consult. Mild hepatomegaly with fatty liver. Old granulomatous disease. Additional nonemergent findings as above. Electronically Signed: Demetrius Britt MD at 1:11 EDT , Service support ,
[2017-11-07] MEDS: morphine 8 MG/ML Syringe IV (23:33)
[2017-11-07] MEDS: 0.9% Normal Saline 1,000 ML 125 ML IV (23:33)
[2017-11-07] MEDS: Ondansetron 4 MG/2 ML Vial IV (23:33)
[2017-11-07 23:53] LABS: Absolute Lymphocyte Count 2.86 X10^3/ul (0.83-4.51); Absolute Neutrophil Count 7.8 X10^3/uL (2.0-7.7); Basophil# 0.07 X10^3/uL; Basophil% 0.6 % (0-1); Eosinophil# 0.17 X10^3/uL; Eosinophils% 1.4 % (0-5); Hematocrit 40.4 % (37-47); Hemoglobin 13.8 g/dl (12.0-15.0); Lymphocyte # 2.86 X10^3/ul (4.0); Lymphocyte % 23.7 % (19-41); Mean Corp Hgb Conc 34.2 g/gl (32-36); Mean Corpuscular Hgb 30.5 pg (27.0-32.0); Mean Corpuscular Volume 89.4 fL (81-99); Mean Platelet Vol. 10.8 fl (6.2-12.0); Monocyte# 1.11 X10^3/uL; Monocyte% 9.2 % (0-10); Neutrophil # 7.79 X10^3/uL (2.7-7.7); Neutrophil % 64.4 % (47-70); POSITIVE COUNT NO; POSITIVE DIFFERENTIAL NO; POSITIVE MORPHOLOGY NO; Platelet Count 231 K/mm3 (150-450); RBC Distribution Width CV 13.6 % (11.6-14.6); RBC Distribution Width SD 43.8 fl (35.1-43.9); Red Blood Count 4.52 M/mm3 (4.2-5.4); White Blood Count 12.1 K/mm3 (4.4-11.0)
[2017-11-08 00:15] LABS: ALB/GLOB Ratio 0.8 RATIO (0.9-2.4); AST(SGOT) 45 U/L (15-37); Alanine Aminotransfer ALT/SGPT 47 U/L (13-56); Albumin, Serum 3.5 g/dL (3.2-5.0); Alkaline Phosphatase 81 U/L (45-117); Anion Gap 9 (5-15); BUN 11 mg/dL (7-18); BUN/Creat Ratio 10.7 RATIO (10-20); Chloride 105 mmol/L (98-107); Creatinine, Serum 1.03 mg/dL (0.55-1.02); EST Glomerular Filtration Rate 64 mL/min (>60); Est Glom Filt Rate - Afr Amer 78 mL/min (>60); Globulin 4.5 g/dL (2.2-4.2); Glucose 214 mg/dL (74-106); Lactic Acid 1.4 mmol/L (0.4-2.0); Lipase 132 U/L (73-393); Potassium 4.3 mmol/L (3.5-5.1); Sodium Level 137 mmol/L (136-145)
--- NOTE | 2017-11-08 01:29 | ED.VISSUMM ---
- ER Visit Summary Date of Service: 11/08/17 Chief Complaint: Abdominal pain History of Present Illness: The patient is a 36 F presenting for evaluation secondary to abdominal pain. Patient has a complicated history of multiple abdominal surgeries with an abdominal hernia. Patient states that she was at the doctor's today having a discussion about staging of surgery for her abdominal hernia. Patient reports that about 30 minutes prior to arrival to the emergency department she had a sudden onset of abdominal pain. She states that it felt like a bomb went off in her abdomen. She states that the sharp continuous epigastric pain associated with nausea no vomiting no diarrhea no fevers. Patient denies any urinary symptoms. Review of systems otherwise negative. Physical Examination: Vital signs within normal limits. Obese female visibly uncomfortable otherwise not physiologic distress. Moist mucous migraines. No JVD. Heart regular rate and rhythm lung sounds clear. Abdomen tender diffusely with some guarding and rigidity in the upper abdomen no rebound no distention noted. I was unable to identify any sort of palpable masses. Normal distal pulses. Remainder of physical otherwise unremarkable. Test Results: CT abdomen and pelvis shows chronically dilated right-sided collecting system as well as a chronic ventral hernia with no evidence of strangulation or incarceration no evidence of bowel obstruction. CBC and chemistry unremarkable. Emergency Department Course and Treatment: Patient presented for evaluation secondary to abdominal pain. She did have some concerning abdominal findings and a history of abdominal hernia so IV was obtained, morphine and Zofran were given, and laboratory and CT workup was obtained. These were found to be unremarkable as noted above. One back and reevaluated the patient she is still complaining of some abdominal pain, but she has normal vital signs and she has had multiple similar presentations in the past. This point I do not believe that the patient requires inpatient management or surgical consultation. Patient was given a dose of oxycodone in the emergency department. She does not have any evidence of strangulation, volvulus, or any dangerous surgical pathology at this point. Patient will follow up with her surgeon at [facility]. Disposition: Discharge Impression: 1. Acute on chronic abdominal pain This note was generated with [employer] dictation software. It may contain incorrect words, spelling, and punctuation that were not noted in review of the chart prior to signing ED Disposition - Plan for ED Patient: Disposition: Home or Assisted Living Chief Complaint: Abd Pain Diagnosis: Abdominal pain Instructions: ED Abdominal Pain Unkn Cause Additional Instructions: Followup with your surgeon at [facility] as scheduled.
[2017-11-08] MEDS: oxyCODONE 5 MG Tablet 10 MG PO (01:33)
[2017-11-08 01:36] VITALS: PULSE 73; RESP 16; O2SAT 96
[2017-11-08 01:44] VITALS: BP 131/65; PULSE 73; RESP 16; O2SAT 97
== END 2017-11-08 01:48 | disposition home or self-care (01) ==
PROVIDERS: Emergency Provider Emergency Medicine; Family Provider Family Medicine; PCP Family Medicine
DX: R10.9 Unspecified abdominal pain (principal); G89.29 Other chronic pain; K43.9 Ventral hernia without obstruction or gangrene; E66.9 Obesity, unspecified; R11.0 Nausea; E11.9 Type 2 diabetes mellitus without complications; Q05.9 Spina bifida, unspecified
CPT/HCPCS: 74176; 80053; 83605; 83690; 85025; 96361; 96374; 96375; 99284; J7030; A4216; J2405

== ENCOUNTER 2017-12-16 07:54 | Emergency (ER) | payer MEDICARE, MEDICAID, SELFPAY ==
[2017-12-16 07:55] VITALS: BP 128/76; BP 128/78; PULSE 66; PULSE 76; RESP 16; TEMP 36.3; O2SAT 99; BMI 94.7
[2017-12-16 08:06] VITALS: O2SAT 99
--- NOTE | 2017-12-16 08:16 | RAD_ITS ---
STUDY: X-RAY CHEST REASON FOR EXAM: Female, 37 years old. Shortness of breath TECHNIQUE: Single AP portable view of the chest. COMPARISON: 08/22/2017 FINDINGS: Lungs are underexpanded. There is no demonstrated pleural abnormality. Normal size heart. Normal mediastinum and cristiano. Normal visualized pulmonary arteries. Normal visualized aortic arch and descending thoracic aorta. Normal visualized thoracic spine. Normal visualized ribs, clavicles, and shoulders. There is no demonstrated abnormality of the visualized soft tissue structures of the upper abdomen. RAD/Chest 1 View (Portable) IMPRESSION: Underexpansion of the lungs are visualized focal infiltrate. Electronically Signed: Kirsten Torres MD at 9:52 EDT Tel , Service support ,
--- NOTE | 2017-12-16 08:16 | EKG12_ITS ---
Test Reason : SOB Blood Pressure : / mmHG Vent. Rate : 065 BPM Atrial Rate : 065 BPM P-R Int : 138 ms QRS Dur : 080 ms QT Int : 446 ms P-R-T Axes : 012 033 025 degrees QTc Int : 463 ms Poor data quality, interpretation may be adversely affected Normal sinus rhythm Normal ECG Confirmed by STEFANI FITZGERALD, RASHAWN ([id number]), online editor LASHA HAY ([id number]) on 12/19/2017 1:18:31 PM Referred By: EMMANUEL Confirmed By:RASHAWN KO MD
--- NOTE | 2017-12-16 08:16 | CT_ITS ---
STUDY: CT ABDOMEN AND PELVIS WITH CONTRAST REASON FOR EXAM: Female, 37 years old. Status post umbilical hernia history of surgery Bowles stoma, back surgery, neurogenic bladder and spina bifida. RADIATION DOSAGE (If Supplied By Facility): CTDIvol = ( 18.85 ) mGy, DLP = ( 1911.19 ) mGycm TECHNIQUE: Transaxial images were obtained from the dome of the diaphragm to the symphysis pubis without oral contrast. 100 ml of Isovue 300 contrast was administered. Sagittal and coronal images were reconstructed. Individualized dose optimization techniques were used for this CT. COMPARISON: November 07, 2017 CT scan abdomen and pelvis FINDINGS: There is a minimal focus of right lower lobe groundglass opacity. This is new since prior study. There is a persistent focus of diaphragmatic hernia with herniation of a minimal amount of intraperitoneal fat. The visualized portions of the heart are within normal limits. There is decreased attenuation of the liver consistent with steatosis. There is non-visualization of the gallbladder, which may be secondary to either contraction or a prior cholecystectomy. Normal spleen. Normal pancreas. Normal bilateral adrenal glands. There is right renal cortical thinning. There is severe right-sided hydronephrosis and hydroureter. Ureter is distended to the bladder where there is a thick walled bladder similar to the prior study.. Normal left kidney. Normal visualized stomach. There mildly distended loops of small bowel. There is a tortuous appearance of the colon. There is a high riding gas-filled appearance of the sigmoid colon. There is a moderate amount of stool within the cecum. The appendix may be seen on image #73. Normal abdominal aorta. Normal inferior vena cava. There few nonspecific subcentimeter paratracheal lymph nodes There is a thick walled appearing bladder. The bladder wall is enhancing measuring up to 9 mm. Normal visualized uterus seen right to midline in the pelvis. There is a hernia mesh demonstrated along the anterior abdominal wall. There is a opening in the abdominal wall fascia through which there is a small focus of fat on the left side adjacent to a small focal fluid collection that measures 4.1 x 1.5 cm with a small gas bubble. This replaces a herniated loop of bowel. There is a also a suggestion of possible residual appendix image #74. There are closely related minimally distended small bowel loops. There is a vertebral deformity at T8 where there is a bifid partially bifid vertebral body image 101 sagittal views. There is absence of the spinous processes at the level of L3-L4 and L5. CT/Abdomen/Pelvis WITH Contrast IMPRESSION: Persistent chronic-appearing right hydronephrosis. Consider distal ureteral obstruction. Bladder wall thickening consistent with cystitis. Perhaps due to a neurogenic bladder. Postoperative change status post hernia mesh and hernia repair with a right to midline postoperative superficial periumbilical fluid collection measuring 4.1 x 1.5 cm. This may represent seroma versus early developing abscess formation recommend correlation with timing of procedure. Moderate hepatic steatosis. Tortuous bowel constipation. Status post laminectomy L3 L4 L5. Minimal right lower lobe atelectasis. Electronically Signed: Kirsten Torres MD at 11:24 EDT Tel , Service support ,
--- NOTE | 2017-12-16 08:18 | CT_ITS ---
STUDY: CTA CHEST REASON FOR EXAM: Female, 37 years old. Shortness of breath status post Hernia surgery RADIATION DOSAGE (If Supplied By Facility): CTDIvol = ( 18.85 ) mGy, DLP = ( 1911.19 ) mGycm TECHNIQUE: The examination was performed with the intravenous administration of 100 ml of Isovue 370 contrast material. Post-processing of the angiographic images was performed, with multiplanar reformation and 3D reconstruction. Individualized dose optimization techniques were used for this CT. COMPARISON: December 16, 2017 chest x-ray FINDINGS: Normal enhancement of the main pulmonary artery and right and left pulmonary arteries. Normal enhancement of the bilateral peripheral pulmonary arteries. There is no demonstrated pulmonary embolism. Normal thoracic aorta and visualized great vessels. There is no demonstrated aortic dissection. Normal heart and pericardium. Normal mediastinum. Normal hilar regions. Normal visualized trachea and bronchi. The lungs are well expanded. Small focus of groundglass opacity in the right lung base is resolved since the CT scan of the abdomen and pelvis. Normal pleura. Normal chest wall structures. There is a bifid vertebral body at the level of T8. At the level of T7 there is a bony hemangioma. There is a right side thyroid cystic structure measuring 1.5 cm. The liver is borderline enlarged fatty infiltrated. CT/CTA Chest W/WO Contrast IMPRESSION: Normal CTA chest examination, without a demonstrated pulmonary embolism or arterial dissection. Low attenuating thyroid nodule measuring 1.5 cm recommend further evaluation with ultrasound and appropriate No evidence of acute focal infiltrate. Bifid vertebral body congenital anomaly T8. Electronically Signed: Kirsten Torres MD at 11:36 EDT Tel , Service support ,
--- NOTE | 2017-12-16 08:23 | ED.VISSUMM ---
- ER Visit Summary Date of Service: 12/16/17 Chief Complaint: Short of breath, dizzy, nausea History of Present Illness: The patient is a 37 F who underwent umbilical hernia repair on December 11 at [facility]. She had a prior stoma at that site. Patient states for the past 3 days that increasing abdominal pain, shortness of breath, nausea, and dizzy. She has been unable to sleep the past 2 nights. She denies fever or chills. She is taking Percocet for pain but states it is not helping her pain. Physical Examination: Vital signs are unremarkable. Patient sitting upright in bed. She appears anxious but she is in no acute distress. Head neck examination reveals dry mucous membranes. Heart is regular rate and rhythm. Lung sounds are clear. Abdomen is soft. There is appropriate postop tenderness. There is surgical sites are clean. Lower external examination reveals 2+ symmetric edema to the lower extremities. Test Results: EKG is sinus at 65 with no sign of acute ischemia. Portal chest x-ray shows underexpanded lungs. CBC and chemistry studies remarkable only for glucose of 167. Urinalysis shows 15 ketones with no sign of infection. CT the chest shows no PE or dissection. A low attenuating thyroid nodule measuring 1.5 cm. Follow-up ultrasound recommended. CT abdomen pelvis shows chronic hydronephrosis. Postop changes status post hernia mesh placement. There is a superficial periumbilical fluid collection measuring 4.1 x 1.5 cm. This could be a seroma versus early abscess. Emergency Department Course and Treatment: Patient was given morphine, Zofran, and IV fluids. Vital signs remained stable throughout her ED stay. Test results were discussed with her. Although she has no fever or white count at this time, she will be covered with a course of Augmentin to ensure this fluid collection does not turn into abscess. She will also be given Zofran for home. She really has Percocet. She is to follow with her primary care physician for follow-up thyroid ultrasound. Treatment Plan: [] Disposition: Discharge Impression: 1. Postop pain 2. Incidental thyroid nodule This note was generated with [employer] software. It may contain incorrect words, spelling, and punctuation that were not noted in review of the chart prior to signing ED Disposition - Plan for ED Patient: Chief Complaint: Shortness of Breath Referrals: Will Shukla MD [Primary Care Provider] -
[2017-12-16] MEDS: Morphine 4 MG/ML Syringe IV ×2 (08:37→12:20)
[2017-12-16] MEDS: 0.9% Normal Saline 1,000 ML 150 ML IV (08:37)
[2017-12-16] MEDS: Ondansetron 4 MG/2 ML Vial IV ×2 (08:37→12:20)
[2017-12-16 08:50] LABS: Absolute Neutrophil Count 6.8 X10^3/uL (2.0-7.7); Basophil# 0.05 X10^3/uL; Basophil% 0.5 % (0-1); Eosinophil# 0.28 X10^3/uL; Eosinophils% 2.7 % (0-5); Hematocrit 37.3 % (37-47); Hemoglobin 12.8 g/dl (12.0-15.0); Lymphocyte % 21.8 % (19-41); Mean Corp Hgb Conc 34.3 g/gl (32-36); Mean Corpuscular Hgb 30.5 pg (27.0-32.0); Mean Platelet Vol. 10.6 fl (6.2-12.0); Monocyte# 1.07 X10^3/uL; Monocyte% 10.2 % (0-10); Neutrophil # 6.76 X10^3/uL (2.7-7.7); Neutrophil % 64.1 % (47-70); Platelet Count 221 K/mm3 (150-450); RBC Distribution Width CV 13.1 % (11.6-14.6); RBC Distribution Width SD 42.3 fl (35.1-43.9); Red Blood Count 4.19 M/mm3 (4.2-5.4); White Blood Count 10.5 K/mm3 (4.4-11.0)
[2017-12-16 08:52] LABS: POSITIVE COUNT NO; POSITIVE DIFFERENTIAL NO; POSITIVE MORPHOLOGY NO
[2017-12-16 08:58] LABS: Anion Gap 8 (5-15); BUN 9 mg/dL (7-18); BUN/Creat Ratio 8.9 RATIO (10-20); Chloride 106 mmol/L (98-107); Creatinine, Serum 1.01 mg/dL (0.55-1.02); EST Glomerular Filtration Rate 66 mL/min (>60); Est Glom Filt Rate - Afr Amer 80 mL/min (>60); Glucose 167 mg/dL (74-106); Potassium 3.5 mmol/L (3.5-5.1); Sodium Level 138 mmol/L (136-145)
[2017-12-16 09:34] LABS: Mucous, Urine 0 SEEN /hpf (<or=2+); Red Blood Cells-Urine 0 SEEN /hpf (0-5); White Blood Cells 0 SEEN /hpf (0-5)
[2017-12-16 09:39] LABS: Color, Urine Yellow (Yellow); Glucose, Dipstick Normal (Normal); Ketone-Dipstick 15 mg/dl (Negative); Leukocyte Esterase-Dipstick Negative /ul (Negative); Nitrite-Dipstick Negative (Negative); Occult Blood-Urine Negative /ul (Negative); Protein-Dipstick Negative (Negative); Urine Bilirubin Dipstick Negative (Negative); Urine Clarity Clear (Clear); Urine Urobilinogen Normal (Normal)
[2017-12-16 09:47] LABS: Bacteria RARE /hpf (None Seen); Squamous Epithelial Cells - UA 0-5 SEEN /hpf (5-10)
--- NOTE | 2017-12-16 12:30 | ED.DEP ---
ED Disposition - Plan for ED Patient: Disposition: Home or Assisted Living Chief Complaint: Shortness of Breath Instructions: ED Post Op Pain Prescriptions: Ondansetron [Zofran Odt] 4 mg PO Q8H PRN PRN #10 tablet PRN Reason: Nausea Amox/Clavulanate Tablet [Augmentin Tablet] 875 mg PO Q12H #20 tablet Referrals: Will Shukla MD [Primary Care Provider] - 1-2 Weeks Additional Instructions: Your CT scan showed an incidental thyroid nodule - follow up with your doctor for an ultrasound. Follow-up with your surgeon as scheduled. Return for worsening symptoms or concerns.
[2017-12-16 12:52] VITALS: BP 149/89; PULSE 62; RESP 12; O2SAT 96
== END 2017-12-16 13:02 | disposition home or self-care (01) ==
PROVIDERS: Emergency Provider Emergency Medicine; Family Provider Family Medicine; PCP Family Medicine
DX: G89.18 Other acute postprocedural pain (principal); E04.1 Nontoxic single thyroid nodule; N13.30 Unspecified hydronephrosis; E11.9 Type 2 diabetes mellitus without complications; E78.00 Pure hypercholesterolemia, unspecified
CPT/HCPCS: 71045; 71275; 74177; 80048; 81001; 85025; 93005; 99284; J7030; J7040; Q9967; A4216; J2405

== ENCOUNTER 2017-12-17 23:46 | Emergency (ER) | payer MEDICARE, MEDICAID, SELFPAY ==
[2017-12-17 23:47] VITALS: BP 134/71; PULSE 68; RESP 20; TEMP 36.6; O2SAT 98; BMI 43.0
--- NOTE | 2017-12-18 00:05 | ED.DCSUM_ITS ---
- ER Visit Summary Date of Service: 12/18/17 Chief Complaint: Abdominal pain History of Present Illness: The patient is a 37 F presents to the emergency department with abdominal pain. The patient had hernia repair done on December 11 at [facility] by Dr. Rios. She states that since then, she has had persistent pain. She feels like it has been worsening over the past 3 days. She was actually here yesterday. At this time, she had a CT of her chest which did not show any pulmonary embolus or pneumonia. She had a CT of her abdomen which showed chronic hydronephrosis, and small fluid collection at the lateral aspect of her umbilical incision. Clinically it was thought to be more likely seroma given her recent surgery, but the patient was placed on Augmentin. She states that she is still having persistent pain and nausea. She has had no vomiting. She denies any fevers or chills. She states that she cannot get comfortable. Physical Examination: Vital signs reviewed General: Well-nourished, well-developed Head: Normocephalic, atraumatic Eyes: Pupils equal and reactive, extraocular muscles intact Neck, supple, no lymphadenopathy Heart: Regular rate and rhythm Respiratory: No distress, clear bilaterally Abdomen: Soft, tender at incision sites without rebound or guarding, no new hernia, no erythema, small seroma at the left lateral incision of the umbilicus Back: Nontender Extremities: Nontender, no edema, no cords Skin: Normal color no rash Neuro: Alert and oriented, no focal or lateralizing deficits Test Results: [] Emergency Department Course and Treatment: I did review the patient's CT scan. The area fluid collection does not correspond to her area of maximal tenderness. There is no erythema over the incision site. She is just tender around the incisions and diffusely. I do feel that this is more likely because of postoperative pain. IV was established. Screening labs are obtained. She has a minimal leukocytosis, but labs are otherwise unremarkable. With fluids, analgesics, antiemetics her symptoms have improved. I do not suspect a dangerous process. I do feel that the patient can safely be discharged. I did mitochondrial disorders counselor her that she needs to call her surgeon tomorrow from [place] to discuss plan of care. She will continue her oral antibiotics. I did add new antiemetics and antispasmodics to her regimen. She was counseled on concerning symptoms and reasons to return. The patient be discharged home. Treatment Plan: [] Disposition: Discharge Impression: Postoperative abdominal pain This note was generated with [employer] dictation software. It may contain incorrect words, spelling, and punctuation that were not noted in review of the chart prior to signing ED Disposition - Plan for ED Patient: Disposition: Home or Assisted Living Chief Complaint: Abd Pain Instructions: ED Abdominal Pain Unkn Cause Prescriptions: proMETHazine tablet [Phenergan] 25 mg PO Q6H PRN PRN #10 tab PRN Reason: Nausea Dicyclomine HCl [Bentyl] 20 mg PO TIDAC #20 cap Referrals: Will Shukla MD [Primary Care Provider] -
[2017-12-18] MEDS: proMETHazine 25 MG/ML Syringe 6.25 MG IV (00:12)
[2017-12-18] MEDS: 0.9% Normal Saline 1,000 ML 1000 ML IV (00:12)
[2017-12-18] MEDS: Morphine 4 MG/ML Syringe IV (00:14)
[2017-12-18 00:24] LABS: ALB/GLOB Ratio 0.8 RATIO (0.9-2.4); AST(SGOT) 73 U/L (15-37); Alanine Aminotransfer ALT/SGPT 38 U/L (13-56); Albumin, Serum 3.6 g/dL (3.2-5.0); Alkaline Phosphatase 75 U/L (45-117); Anion Gap 8 (5-15); BUN 9 mg/dL (7-18); BUN/Creat Ratio 7.6 RATIO (10-20); Calcium,Total 9.2 mg/dL (8.5-10.1); Chloride 108 mmol/L (98-107); Creatinine, Serum 1.19 mg/dL (0.55-1.02); EST Glomerular Filtration Rate 55 mL/min (>60); Est Glom Filt Rate - Afr Amer 66 mL/min (>60); Estimated Creatinine Clearance 51.69 ml/min; Globulin 4.4 g/dL (2.2-4.2); Glucose 134 mg/dL (74-106); Potassium 3.5 mmol/L (3.5-5.1); Sodium Level 141 mmol/L (136-145)
[2017-12-18 00:38] LABS: Absolute Lymphocyte Count 3.49 X10^3/ul (0.83-4.51); Basophil# 0.04 X10^3/uL; Basophil% 0.3 % (0-1); Eosinophil# 0.35 X10^3/uL; Eosinophils% 2.6 % (0-5); Hemoglobin 12.4 g/dl (12.0-15.0); Lymphocyte # 3.49 X10^3/ul (4.0); Lymphocyte % 26.1 % (19-41); Mean Corp Hgb Conc 33.5 g/gl (32-36); Mean Corpuscular Hgb 30.2 pg (27.0-32.0); Mean Corpuscular Volume 90.2 fL (81-99); Monocyte# 1.42 X10^3/uL; Monocyte% 10.6 % (0-10); Neutrophil % 59.9 % (47-70); Platelet Count 273 K/mm3 (150-450); RBC Distribution Width CV 13.8 % (11.6-14.6); RBC Distribution Width SD 44.6 fl (35.1-43.9); White Blood Count 13.4 K/mm3 (4.4-11.0)
[2017-12-18 00:40] LABS: POSITIVE COUNT NO; POSITIVE DIFFERENTIAL NO; POSITIVE MORPHOLOGY NO
[2017-12-18] MEDS: proMETHazine 25 MG Tablet PO (01:18)
[2017-12-18 01:20] VITALS: PULSE 66; RESP 18; O2SAT 94
--- NOTE | 2017-12-18 01:21 | ED.RN ---
DRESSING CHANGED AT UMBICAL SITE. 4X4 GAUZE AND TEGADERM APPLIED TO SITE. PURULENT DRAINAGE NOTED. SITE CLEANED. ADVISED PATIENT TO CALL SURGEON FOR FOLLOW UP CARE OF SURGICAL ISSUES.
== END 2017-12-18 01:21 | disposition home or self-care (01) ==
LOC: ED 12-18 00:04
PROVIDERS: Emergency Provider Emergency Medicine; Family Provider Family Medicine; PCP Family Medicine
DX: R10.9 Unspecified abdominal pain (principal); Z98.890 Other specified postprocedural states
CPT/HCPCS: 80053; 85025; 96361; 96374; 96375; 99284; J7030; A4216

== ENCOUNTER 2017-12-20 11:34 | Emergency (ER) | payer MEDICARE, MEDICAID, SELFPAY ==
[2017-12-20 11:36] VITALS: BP 168/78; PULSE 65; RESP 15; TEMP 37.3; O2SAT 98; BMI 43.0
[2017-12-20 13:39] LABS: Anion Gap 6 (5-15); BUN 9 mg/dL (7-18); BUN/Creat Ratio 8.6 RATIO (10-20); Calcium,Total 9.1 mg/dL (8.5-10.1); Chloride 107 mmol/L (98-107); Creatinine, Serum 1.05 mg/dL (0.55-1.02); EST Glomerular Filtration Rate 63 mL/min (>60); Est Glom Filt Rate - Afr Amer 76 mL/min (>60); Estimated Creatinine Clearance 58.58 ml/min; Glucose 139 mg/dL (74-106); Potassium 3.7 mmol/L (3.5-5.1); Sodium Level 140 mmol/L (136-145)
[2017-12-20 13:41] LABS: Absolute Lymphocyte Count 1.98 X10^3/ul (0.83-4.51); Basophil# 0.04 X10^3/uL; Basophil% 0.4 % (0-1); Eosinophil# 0.33 X10^3/uL; Eosinophils% 3.6 % (0-5); Hematocrit 37.5 % (37-47); Hemoglobin 12.1 g/dl (12.0-15.0); Lymphocyte # 1.98 X10^3/ul (4.0); Lymphocyte % 21.4 % (19-41); Mean Corp Hgb Conc 32.3 g/gl (32-36); Mean Corpuscular Hgb 29.4 pg (27.0-32.0); Mean Platelet Vol. 10.8 fl (6.2-12.0); Monocyte# 0.88 X10^3/uL; Monocyte% 9.5 % (0-10); Neutrophil # 6.01 X10^3/uL (2.7-7.7); Neutrophil % 64.9 % (47-70); Platelet Count 232 K/mm3 (150-450); RBC Distribution Width CV 13.9 % (11.6-14.6); RBC Distribution Width SD 46.1 fl (35.1-43.9); Red Blood Count 4.12 M/mm3 (4.2-5.4); White Blood Count 9.3 K/mm3 (4.4-11.0)
[2017-12-20 13:50] LABS: POSITIVE COUNT NO; POSITIVE DIFFERENTIAL NO; POSITIVE MORPHOLOGY NO
[2017-12-20 13:54] VITALS: BP 134/72; PULSE 77; RESP 20; O2SAT 96
[2017-12-20 14:49] VITALS: RESP 16
--- NOTE | 2017-12-20 15:27 | CT_ITS ---
STUDY: CT ABDOMEN AND PELVIS WITH CONTRAST REASON FOR EXAM: Female, 37 years old. Umbilical surgery RADIATION DOSAGE (If Supplied By Facility): CTDIvol = ( 14.51 ) mGy, DLP = ( 1065.88 ) mGycm TECHNIQUE: Transaxial images were obtained from the dome of the diaphragm to the symphysis pubis without oral contrast. 100ML ml of Isovue 300 contrast was administered. Sagittal and coronal images were reconstructed. Individualized dose optimization techniques were used for this CT. COMPARISON: December 16, 2017 FINDINGS: The visualized lung bases are unremarkable. The visualized portions of the heart are within normal limits. Normal liver. There are surgical clips in the gallbladder fossa consistent with a prior cholecystectomy. Normal spleen. Normal pancreas. Normal bilateral adrenal glands. There is moderate cortical atrophy of the right kidney, consistent with chronic medical renal disease. Normal left kidney. Normal visualized stomach. Normal small intestine. Increased stool throughout the colon. There is non-visualization of the appendix. Normal abdominal aorta. Normal inferior vena cava. Normal retroperitoneum. Normal urinary bladder. Normal visualized uterus. There is a small umbilical hernia containing fat and fluid. Anterior abdominal wall mesh. Laminectomies L2-[address]/Abdomen/Pelvis WITH Contrast IMPRESSION: Moderate right hydronephrosis and hydroureter unchanged. No radiodense urolithiasis. Anterior abdominal wall mesh and fluid containing periumbilical hernia unchanged.. Electronically Signed: Tulio Hartmann MD at 17:32 EDT , Service support ,
--- NOTE | 2017-12-20 16:23 | ED.VISSUMM ---
- ER Visit Summary Date of Service: 12/20/17 Chief Complaint: Discharge from laparoscopic incisions History of Present Illness: The patient is a 37 F who was seen twice within the past 24-48 hours. She contacted her surgeon at [facility]. He requested that she come to the emergency room for evaluation. She complains of nausea without vomiting diarrhea. She complains of drainage from the wound. There is a piece of gauze in the umbilicus with green color material. She denies fever, chills night sweats. She denies dysuria, frequency, urgency or hematuria. She denies any cardiac respiratory symptoms. Physical Examination: Vital signs are remarkable for an elevated blood pressure 167 or 78. She is not febrile nor is she tachycardic or tachypneic. Dressings were removed. There is greenish black material noted on gauze from the umbilicus. The umbilicus itself does not abnormal. There is a small area of excoriation. There may be fluctuance. Unable to express any material. Bowel sounds are present normal. There is no guarding or rebound tenderness. There is no CVA tenderness noted. Heart is regular without murmur, gallop or rub. S1 and S2 are normal. Lungs are clear to auscultation with good movement of air bilaterally. Test Results: CBC and BMP are unremarkable. Emergency Department Course and Treatment: CBC and BMP were obtained. Prior records were reviewed. There is a 4 x 1.5 cm fluid collection noted in the subcutaneous tissue. Nurse informed me that there is drainage now and flatus passing from the small wound in the umbilicus. In light of this CT of the abdomen with p.o. and IV contrast was obtained because of concern for a enterocutaneous fistula versus abscess with gas-forming organism. Treatment Plan: In light of most recent history from nursing staff will treat patient with Zosyn, clindamycin and gentamicin. Disposition: To be determined once CT of the abdomen pelvis has been obtained and consultation with her surgeon at [facility]. Her surgeon returned my page. He informed me that she has a Bowles stoma and reason she is passing gas from her umbilicus. Plan is to discharge to home with antibiotics if CT of the abdomen reveals no significant findings. If there is gas and more gas than prior scan in fluid collection previously noted she is to be transferred to [facility] otherwise follow-up as outpatient in 2-3 days Impression: 1. Subcutaneous fluid collection evaluate for abscess 2. Bowles stoma 3. History of spina bifida 4. History of frequent UTIs 5. History of type 2 diabetes This note was generated with [employer] dictation software. It may contain incorrect words, spelling, and punctuation that were not noted in review of the chart prior to signing ED Disposition - Plan for ED Patient: Disposition: Home or Assisted Living Chief Complaint: Wound Check Instructions: ED Wound Infec After Surgery Prescriptions: Clindamycin HCl 300 mg PO 4X/DAY #30 cap Referrals: Will Shukla MD [Primary Care Provider] - Doctor,Your [STAFF PHYSICIAN] - 3-5 Days
--- NOTE | 2017-12-20 16:28 | ED.DCSUM_ITS ---
- ER Visit Summary Date of Service: 12/20/17 Chief Complaint: Discharge from laparoscopic incisions History of Present Illness: The patient is a 37 F who was seen twice within the past 24-48 hours. She contacted her surgeon at [facility]. He requested that she come to the emergency room for evaluation. She complains of nausea without vomiting diarrhea. She complains of drainage from the wound. There is a piece of gauze in the umbilicus with green color material. She denies fever, chills night sweats. She denies dysuria, frequency, urgency or hematuria. She denies any cardiac respiratory symptoms. Physical Examination: Vital signs are remarkable for an elevated blood pressure 167 or 78. She is not febrile nor is she tachycardic or tachypneic. Dressings were removed. There is greenish black material noted on gauze from the umbilicus. The umbilicus itself does not abnormal. There is a small area of excoriation. There may be fluctuance. Unable to express any material. Bowel sounds are present normal. There is no guarding or rebound tenderness. There is no CVA tenderness noted. Heart is regular without murmur, gallop or rub. S1 and S2 are normal. Lungs are clear to auscultation with good movement of air bilaterally. Test Results: CBC and BMP are unremarkable. Emergency Department Course and Treatment: CBC and BMP were obtained. Prior records were reviewed. There is a 4 x 1.5 cm fluid collection noted in the subcutaneous tissue. Nurse informed me that there is drainage now and flatus passing from the small wound in the umbilicus. In light of this CT of the abdomen with p.o. and IV contrast was obtained because of concern for a enterocutaneous fistula versus abscess with gas-forming organism. Treatment Plan: In light of most recent history from nursing staff will treat patient with Zosyn, clindamycin and gentamicin. Disposition: To be determined once CT of the abdomen pelvis has been obtained and consultation with her surgeon at [facility]. Her surgeon returned my page. He informed me that she has a Bowles stoma and reason she is passing gas from her umbilicus. Plan is to discharge to home with antibiotics if CT of the abdomen reveals no significant findings. If there is gas and more gas than prior scan in fluid collection previously noted she is to be transferred to [facility] otherwise follow-up as outpatient in 2-3 days Impression: 1. Subcutaneous fluid collection evaluate for abscess 2. Bowles stoma 3. History of spina bifida 4. History of frequent UTIs 5. History of type 2 diabetes This note was generated with [employer] dictation software. It may contain incorrect words, spelling, and punctuation that were not noted in review of the chart prior to signing ED Disposition - Plan for ED Patient: Disposition: Home or Assisted Living Chief Complaint: Wound Check Instructions: ED Wound Infec After Surgery Prescriptions: Clindamycin HCl 300 mg PO 4X/DAY #30 cap Referrals: Will Shukla MD [Primary Care Provider] - Doctor,Your [STAFF PHYSICIAN] - 3-5 Days
[2017-12-20 17:12] VITALS: BP 152/81; PULSE 70; RESP 16; O2SAT 99
[2017-12-20 18:46] VITALS: BP 125/85; PULSE 71; RESP 16; O2SAT 98
[2017-12-20] MEDS: Morphine 4 MG/ML Syringe IV (19:03)
[2017-12-20] MEDS: Ondansetron 4 MG/2 ML Vial IV (19:03)
[2017-12-20 20:38] VITALS: BP 133/85; PULSE 74; RESP 18; O2SAT 95
== END 2017-12-20 20:38 | disposition home or self-care (01) ==
PROVIDERS: Emergency Provider Emergency Medicine; Family Provider Family Medicine; PCP Family Medicine
DX: T81.4XXA Infection following a procedure, initial encounter (principal); K65.1 Peritoneal abscess; Y83.8 Other surgical procedures as the cause of abnormal reaction of the patient, or of later complication, without mention of misadventure at the time of the procedure; Y92.9 Unspecified place or not applicable; Q05.9 Spina bifida, unspecified; E11.9 Type 2 diabetes mellitus without complications; Z87.440 Personal history of urinary (tract) infections
CPT/HCPCS: 74177; 80048; 85025; 99285; J7030; P9612; Q9967; A4216; J2405

== ENCOUNTER 2017-12-24 07:11 | Emergency (ER) | payer MEDICARE, MEDICAID, SELFPAY ==
[2017-12-24 07:15] VITALS: BP 137/95; PULSE 63; RESP 15; TEMP 37.1; O2SAT 98; BMI 42.7
--- NOTE | 2017-12-24 07:34 | CT_ITS ---
STUDY: CT ABDOMEN AND PELVIS WITH CONTRAST REASON FOR EXAM: Female, 37 years old. S/P UMBILICAL HERNIA REPAIR 12/11/17 -- MULTIPLE SCANS SINCE -- STILL HAS PAIN/DRAINAGE--NON-COMPLIANT WITH ATB. RADIATION DOSAGE (If Supplied By Facility): CTDIvol = ( 15.84 ) mGy, DLP = ( 1157.69 ) mGycm TECHNIQUE: Transaxial images were obtained from the dome of the diaphragm to the symphysis pubis without oral contrast. 100CC ml of Isovue 300 contrast was administered. Sagittal and coronal images were reconstructed. Individualized dose optimization techniques were used for this CT. COMPARISON: December 20, 2017 FINDINGS: The visualized lung bases are unremarkable. The visualized portions of the heart are within normal limits. There is decreased attenuation of the liver consistent with steatosis. The gallbladder is contracted. Normal spleen. Normal pancreas. Normal bilateral adrenal glands. There is increased moderate/severe right hydroureteronephrosis. There is no demonstrated ureteral stone. Normal left kidney. Normal visualized stomach. Normal small intestine. There is mild amount of retained stool within the colon There is non-visualization of the appendix. Normal abdominal aorta. Normal inferior vena cava. Normal retroperitoneum. Normal urinary bladder. There is anterior abdominal wall hernia repair with surgical tacks. There is umbilical fat-containing hernia with 3.3 cm surrounding fluid collection. Findings are unchanged since the prior examination Normal osseous structures. CT/Abdomen/Pelvis W IV Cont ONLY IMPRESSION: Stable periumbilical fluid collection. No demonstrated ureteral stones. Mildly increased right hydronephrosis. Mild fecal stasis. Electronically Signed: Daniel Fitch MD at 8:31 EDT Tel , Service support ,
--- NOTE | 2017-12-24 07:35 | ED.VISSUMM ---
- ER Visit Summary Date of Service: 12/24/17 Chief Complaint: [Abdominal pain] History of Present Illness: The patient is a 37 F with abdominal pain for the past 2 weeks since her recent abdominal hernia surgery done at [facility]. She has no fever or chills she did notice some discharge from the umbilicus over the past week, it is clear. No fever or chills. No significant abdominal distention, she is making bowel movements. She was seen for this in our emergency department 3 times prior for pain control. She was given antibiotics which she is taken sporadically. She does not have any analgesia left at home. Physical Examination: She appears slightly anxious, does not appear toxic. She is morbidly obese. Moist mucous membranes, no obvious facial deformity No C-spine tenderness supple neck. Regular rate and rhythm without any obvious murmurs Clear lungs bilaterally speaking in full sentences without any obvious respiratory distress Abdomen soft with some tenderness especially in the periumbilical region. The laparoscopic incisions are clean dry and intact, there is a small area of ecchymosis on her abdominal wall inferior to the umbilicus, about 3 mm x 3 mm. Slight discharge from the umbilicus, this is clear, no obvious fistula on exam. Moves all extremities without any difficulty or pain. Skin does not show any obvious rashes or lesions, no trauma. Alert oriented ?3 with no gross focal deficit Emergency Department Course and Treatment: [CT is unremarkable and unchanged from before there is a small fluid collection which may cause her leak, this does not appear infected I stressed the importance of following up with her surgeon. She is taking her antibiotics sporadically I also encouraged her to take them as directed. She appears stable she will be discharged in stable condition to follow-up. Impression: [Abdominal pain] This note was generated with [employer] dictation software. It may contain incorrect words, spelling, and punctuation that were not noted in review of the chart prior to signing ED Disposition - Plan for ED Patient: Disposition: Home or Assisted Living Chief Complaint: Abd Pain Instructions: Abdominal Pain Prescriptions: Hydrocodone Bitart/Apap 5-325 [[place] 5/325] 1 - 2 tab PO Q4H PRN PRN #3 tab PRN Reason: Pain Referrals: Will Shukla MD [Primary Care Provider] - 2 Days
--- NOTE | 2017-12-24 07:38 | ED.DCSUM_ITS ---
- ER Visit Summary Date of Service: 12/24/17 Chief Complaint: [Abdominal pain] History of Present Illness: The patient is a 37 F with abdominal pain for the past 2 weeks since her recent abdominal hernia surgery done at [facility]. She has no fever or chills she did notice some discharge from the umbilicus over the past week, it is clear. No fever or chills. No significant abdominal distention, she is making bowel movements. She was seen for this in our emergency department 3 times prior for pain control. She was given antibiotics which she is taken sporadically. She does not have any analgesia left at home. Physical Examination: She appears slightly anxious, does not appear toxic. She is morbidly obese. Moist mucous membranes, no obvious facial deformity No C-spine tenderness supple neck. Regular rate and rhythm without any obvious murmurs Clear lungs bilaterally speaking in full sentences without any obvious respiratory distress Abdomen soft with some tenderness especially in the periumbilical region. The laparoscopic incisions are clean dry and intact, there is a small area of ecchymosis on her abdominal wall inferior to the umbilicus, about 3 mm x 3 mm. Slight discharge from the umbilicus, this is clear, no obvious fistula on exam. Moves all extremities without any difficulty or pain. Skin does not show any obvious rashes or lesions, no trauma. Alert oriented ?3 with no gross focal deficit Emergency Department Course and Treatment: [CT is unremarkable and unchanged from before there is a small fluid collection which may cause her leak, this does not appear infected I stressed the importance of following up with her surgeon. She is taking her antibiotics sporadically I also encouraged her to take them as directed. She appears stable she will be discharged in stable condition to follow-up. Impression: [Abdominal pain] This note was generated with [employer] dictation software. It may contain incorrect words, spelling, and punctuation that were not noted in review of the chart prior to signing ED Disposition - Plan for ED Patient: Disposition: Home or Assisted Living Chief Complaint: Abd Pain Instructions: Abdominal Pain Prescriptions: Hydrocodone Bitart/Apap 5-325 [[place] 5/325] 1 - 2 tab PO Q4H PRN PRN #3 tab PRN Reason: Pain Referrals: Will Shukla MD [Primary Care Provider] - 2 Days
[2017-12-24] MEDS: Morphine 4 MG/ML Syringe IV (07:49)
[2017-12-24] MEDS: Ondansetron 4 MG/2 ML Vial IV (07:49)
[2017-12-24 07:53] LABS: Absolute Lymphocyte Count 3.02 X10^3/ul (0.83-4.51); Absolute Neutrophil Count 6.3 X10^3/uL (2.0-7.7); Basophil# 0.05 X10^3/uL; Basophil% 0.4 % (0-1); Eosinophil# 0.56 X10^3/uL; Hematocrit 38.6 % (37-47); Hemoglobin 12.5 g/dl (12.0-15.0); Lymphocyte # 3.02 X10^3/ul (4.0); Lymphocyte % 26.8 % (19-41); Mean Corp Hgb Conc 32.4 g/gl (32-36); Mean Corpuscular Hgb 29.4 pg (27.0-32.0); Mean Corpuscular Volume 90.8 fL (81-99); Mean Platelet Vol. 10.5 fl (6.2-12.0); Monocyte# 1.28 X10^3/uL; Monocyte% 11.3 % (0-10); Neutrophil # 6.33 X10^3/uL (2.7-7.7); Neutrophil % 56.1 % (47-70); Platelet Count 241 K/mm3 (150-450); RBC Distribution Width CV 13.9 % (11.6-14.6); RBC Distribution Width SD 45.8 fl (35.1-43.9); Red Blood Count 4.25 M/mm3 (4.2-5.4); White Blood Count 11.3 K/mm3 (4.4-11.0)
[2017-12-24 07:54] LABS: POSITIVE COUNT NO; POSITIVE DIFFERENTIAL NO; POSITIVE MORPHOLOGY NO
[2017-12-24 08:09] LABS: BUN 13 mg/dL (7-18); Creatinine, Serum 1.05 mg/dL (0.55-1.02); Glucose 175 mg/dL (74-106)
[2017-12-24 08:10] LABS: ALB/GLOB Ratio 0.8 RATIO (0.9-2.4); AST(SGOT) 23 U/L (15-37); Alanine Aminotransfer ALT/SGPT 31 U/L (13-56); Albumin, Serum 3.9 g/dL (3.2-5.0); Alkaline Phosphatase 86 U/L (45-117); Anion Gap 9 (5-15); BUN/Creat Ratio 12.4 RATIO (10-20); Calcium,Total 9.4 mg/dL (8.5-10.1); Chloride 103 mmol/L (98-107); EST Glomerular Filtration Rate 63 mL/min (>60); Est Glom Filt Rate - Afr Amer 76 mL/min (>60); Estimated Creatinine Clearance 58.58 ml/min; Globulin 4.6 g/dL (2.2-4.2); Potassium 3.7 mmol/L (3.5-5.1); Protein, Total 8.5 g/dL (6.4-8.2); Sodium Level 140 mmol/L (136-145)
[2017-12-24 11:24] VITALS: BP 122/82; PULSE 69; RESP 15; O2SAT 100
== END 2017-12-24 11:24 | disposition home or self-care (01) ==
PROVIDERS: Emergency Provider Emergency Medicine; Family Provider Family Medicine; PCP Family Medicine
DX: R10.9 Unspecified abdominal pain (principal); E66.01 Morbid (severe) obesity due to excess calories; Z98.890 Other specified postprocedural states
CPT/HCPCS: 74177; 80053; 85025; 96374; 96375; 99284; J7050; Q9967

== ENCOUNTER 2018-01-21 01:29 | Emergency (ER) | payer MEDICARE, MEDICAID, SELFPAY ==
[2018-01-21 01:31] VITALS: BP 135/76; PULSE 78; RESP 18; TEMP 36.9; O2SAT 97; BMI 43.8
[2018-01-21] MEDS: Ketorolac 30 MG/ML Syringe IV (02:13)
[2018-01-21] MEDS: 0.9% Normal Saline 1,000 ML 1000 ML IV (02:13)
[2018-01-21] MEDS: Ondansetron 4 MG/2 ML Vial IV (02:13)
[2018-01-21 02:16] LABS: Absolute Neutrophil Count 5.6 X10^3/uL (2.0-7.7); Basophil# 0.06 X10^3/uL; Basophil% 0.6 % (0-1); Hematocrit 35.6 % (37-47); Hemoglobin 11.9 g/dl (12.0-15.0); Mean Corp Hgb Conc 33.4 g/gl (32-36); Mean Corpuscular Hgb 30.6 pg (27.0-32.0); Mean Corpuscular Volume 91.5 fL (81-99); Mean Platelet Vol. 10.5 fl (6.2-12.0); Monocyte# 1.14 X10^3/uL; Monocyte% 11.4 % (0-10); Neutrophil # 5.57 X10^3/uL (2.7-7.7); Neutrophil % 55.6 % (47-70); Platelet Count 186 K/mm3 (150-450); RBC Distribution Width CV 13.8 % (11.6-14.6); RBC Distribution Width SD 45.5 fl (35.1-43.9); Red Blood Count 3.89 M/mm3 (4.2-5.4)
[2018-01-21 02:21] LABS: POSITIVE COUNT NO; POSITIVE DIFFERENTIAL NO; POSITIVE MORPHOLOGY NO
[2018-01-21 02:27] LABS: Bacteria 0 SEEN /hpf (None Seen); Mucous, Urine 0 SEEN /hpf (<or=2+); Red Blood Cells-Urine 0 SEEN /hpf (0-5)
[2018-01-21 02:28] LABS: Color, Urine Yellow (Yellow); Glucose, Dipstick 1000 mg/dl (Normal); Ketone-Dipstick Negative (Negative); Leukocyte Esterase-Dipstick Negative /ul (Negative); Nitrite-Dipstick Negative (Negative); Occult Blood-Urine Negative /ul (Negative); Protein-Dipstick 15 mg/dl (Negative); Specific Gravity, Urine 1.015 (1.002-1.030); Urine Bilirubin Dipstick Negative (Negative); Urine Clarity Clear (Clear); Urine Urobilinogen 1 mg/dl (Normal)
[2018-01-21 02:30] LABS: Anion Gap 9 (5-15); BUN 9 mg/dL (7-18); BUN/Creat Ratio 8.7 RATIO (10-20); Calcium,Total 8.7 mg/dL (8.5-10.1); Chloride 105 mmol/L (98-107); Creatinine, Serum 1.03 mg/dL (0.55-1.02); EST Glomerular Filtration Rate 64 mL/min (>60); Est Glom Filt Rate - Afr Amer 78 mL/min (>60); Estimated Creatinine Clearance 59.72 ml/min; Glucose 254 mg/dL (74-106); Potassium 3.8 mmol/L (3.5-5.1); Sodium Level 139 mmol/L (136-145)
[2018-01-21 02:33] LABS: Squamous Epithelial Cells - UA 5-10 SEEN /hpf (5-10); White Blood Cells 0-5 SEEN /hpf (0-5)
[2018-01-21 02:35] LABS: Pregnancy, Serum, hCG Quali. NEGATIVE Negative (0-9 Nonpreg)
--- NOTE | 2018-01-21 04:14 | ED.VISSUMM ---
- ER Visit Summary Date of Service: 01/21/18 Chief Complaint: Pain History of Present Illness: The patient is a 37 F with right flank pain. Associated with nausea, vomiting, cloudy and foul-smelling urine. Symptoms started within the past 24 hours and came on gradually. She had similar symptoms in the past with UTIs and kidney stones. She does have a history of spina bifida and neurogenic bladder. She self caths. No fevers. No other associated symptoms. Physical Examination: Afebrile and vital signs unremarkable. No acute distress. Heart regular. Lungs clear. Abdomen is tender in the right flank region. Right CVA tenderness. Skin appears normal. Test Results: Hemoglobin 1.9, glucose 254, creatinine 1.03. Urinalysis unremarkable. test negative. CT abdomen and pelvis shows hepatic steatosis, right congenital megaureter, and no acute abnormalities. Emergency Department Course and Treatment: Patient treated with fluids, Zofran, Toradol while awaiting results. Her workup was fairly unremarkable. She has a history of high blood sugars, anemia, megaureter, and hepatic steatosis. There are no signs of bleeding. No signs of stones. I think her symptoms might be more likely due to infection. Although her urinalysis was unremarkable, she has concerning symptoms and risk factors for infection. Culture was sent. She will be started on keflex. Patient will follow-up as an outpatient. Return for any new or worsening issues. Treatment Plan: As above Disposition: Discharged Impression: 1. Dysuria This note was generated with [employer] dictation software. It may contain incorrect words, spelling, and punctuation that were not noted in review of the chart prior to signing ED Disposition - Plan for ED Patient: Chief Complaint: Flank Pain Referrals: Will Shukla MD [Primary Care Provider] -
--- NOTE | 2018-01-21 04:16 | ED.DEP ---
ED Disposition - Plan for ED Patient: Chief Complaint: Flank Pain Instructions: ED Flank Pain Uncertain Cause Prescriptions: Cephalexin [Keflex] 500 mg PO Q6 #28 cap Referrals: Will Shukla MD [Primary Care Provider] -
[2018-01-21] MEDS: Cephalexin 250 MG Capsule 500 MG PO (04:19)
[2018-01-21 04:34] VITALS: BP 107/80; PULSE 62; O2SAT 96
== END 2018-01-21 04:44 | disposition home or self-care (01) ==
PROVIDERS: Emergency Provider Emergency Medicine; Family Provider Family Medicine; PCP Family Medicine
DX: R30.0 Dysuria (principal); R10.9 Unspecified abdominal pain; R11.2 Nausea with vomiting, unspecified; M54.9 Dorsalgia, unspecified; R35.0 Frequency of micturition; K76.0 Fatty (change of) liver, not elsewhere classified; Q62.2 Congenital megaureter; Q05.9 Spina bifida, unspecified; Z87.442 Personal history of urinary calculi; Z87.440 Personal history of urinary (tract) infections; N31.9 Neuromuscular dysfunction of bladder, unspecified
CPT/HCPCS: 74176; 80048; 81001; 84703; 85025; 87086; 87088; 96361; 96374; 96375; 99285; J7030; P9612; A4216; J2405

== ENCOUNTER → 2018-01-23 11:10 | Outpatient (CLI) | payer MEDICARE, MEDICAID, SELFPAY ==
--- NOTE | 2018-01-23 08:15 | ASPIG_PTH ---
PATIENT: HEBER BAILON LOC: [facility] U#:[id number] AGE/SX: 44/F ROOM: RE01/23/[address]: Dr. Nemesio Josue MD : 1980 BED: DIS: SPEC #: [id number] RECD: 01/23/18 11:07 STATUS: KIM MARY #: [id number] EFRAIN: 01/23/18 08:[address]: Nemesio Josue DEPT: CYTOLOGY RECD BY: Lencho Wade ENTERED: 01/23/18 11:58 SP TYPE: ASP OUT OTHR DR: Dr. Will Shukla MD Tissues: A - Thyroid gland, NOS B - Thyroid gland, NOS Procedures: FNA Specimen Adequacy Special Stain Group II Surgery Specimen Level IV Cytology Other HEADER OPERATION: Ultrasound-guided fine needle aspiration right thyroid PRE-OP DIAGNOSIS: Uninodular goiter E04.1 TISSUE SUBMITTED: A ? Fluid in syringe ? right thyroid for cytology, B ? Fine needle aspiration, right thyroid (12 slides) DIAGNOSIS CYTOLOGY A. Fine needle aspiration, right thyroid nodule (cytospin and cell block): Consistent with benign cystic nodule. B. Fine needle aspiration, right thyroid nodule (smears): Adequate for evaluation. Benign, consistent with cystic colloid nodule. AM:kateryna 01/24/18 CYTOLOGY STUDY Slides are reviewed. CYTOLOGY GROSS A - Received is 2 ml of red cloudy fluid labeled with the patient's name and and designated per the requisition as right thyroid. Submitted for cytology preparation including cell block. B - Received are 12 smears labeled with the patient's name and designated per the requisition as right thyroid. Submitted for staining. 01/23/18 TC:5 CPT: 19338, 18271, 85018
== END ==
PROVIDERS: Family Provider Family Medicine; PCP Family Medicine; Visit Provider Surgery
DX: E04.1 Nontoxic single thyroid nodule (principal)
CPT/HCPCS: 88161; 88172; 88305; 88313

== ENCOUNTER 2018-01-30 10:32 | Emergency (ER) | payer MEDICARE, MEDICAID, SELFPAY ==
[2018-01-30 10:33] VITALS: BP 153/101; PULSE 110; RESP 18; TEMP 37.4; O2SAT 99; BMI 43.5
[2018-01-30 11:52] LABS: Bacteria 0 SEEN /hpf (None Seen); Mucous, Urine 0 SEEN /hpf (<or=2+); Red Blood Cells-Urine 0 SEEN /hpf (0-5); Squamous Epithelial Cells - UA 0 SEEN /hpf (5-10); White Blood Cells 0 SEEN /hpf (0-5)
[2018-01-30 11:58] LABS: Color, Urine Yellow (Yellow); Glucose, Dipstick 1000 mg/dl (Normal); Ketone-Dipstick Negative (Negative); Leukocyte Esterase-Dipstick Negative /ul (Negative); Nitrite-Dipstick Negative (Negative); Occult Blood-Urine Negative /ul (Negative); Protein-Dipstick 15 mg/dl (Negative); Specific Gravity, Urine 1.015 (1.002-1.030); Urine Bilirubin Dipstick Negative (Negative); Urine Clarity Clear (Clear); Urine Urobilinogen Normal (Normal)
[2018-01-30 12:02] LABS: Absolute Neutrophil Count 6.7 X10^3/uL (2.0-7.7); Basophil# 0.05 X10^3/uL; Basophil% 0.5 % (0-1); Eosinophil# 0.35 X10^3/uL; Eosinophils% 3.5 % (0-5); Hematocrit 35.9 % (37-47); Hemoglobin 11.6 g/dl (12.0-15.0); Lymphocyte % 21.2 % (19-41); Mean Corp Hgb Conc 32.3 g/gl (32-36); Mean Corpuscular Hgb 29.5 pg (27.0-32.0); Mean Corpuscular Volume 91.3 fL (81-99); Mean Platelet Vol. 11.6 fl (6.2-12.0); Monocyte# 0.65 X10^3/uL; Monocyte% 6.6 % (0-10); Neutrophil # 6.68 X10^3/uL (2.7-7.7); Neutrophil % 67.3 % (47-70); Platelet Count 151 K/mm3 (150-450); RBC Distribution Width SD 46.5 fl (35.1-43.9); Red Blood Count 3.93 M/mm3 (4.2-5.4); White Blood Count 9.9 K/mm3 (4.4-11.0)
[2018-01-30] MEDS: Morphine 4 MG/ML Syringe IV (12:03)
[2018-01-30] MEDS: Ondansetron 4 MG/2 ML Vial IV (12:03)
[2018-01-30 12:06] LABS: POSITIVE COUNT NO; POSITIVE DIFFERENTIAL NO; POSITIVE MORPHOLOGY NO
[2018-01-30 12:14] LABS: ALB/GLOB Ratio 0.8 RATIO (0.9-2.4); AST(SGOT) 39 U/L (15-37); Alanine Aminotransfer ALT/SGPT 34 U/L (13-56); Albumin, Serum 3.5 g/dL (3.2-5.0); Alkaline Phosphatase 80 U/L (45-117); Anion Gap 10 (5-15); BUN 16 mg/dL (7-18); Calcium,Total 8.7 mg/dL (8.5-10.1); Chloride 104 mmol/L (98-107); Creatinine, Serum 1.14 mg/dL (0.55-1.02); EST Glomerular Filtration Rate 57 mL/min (>60); Est Glom Filt Rate - Afr Amer 69 mL/min (>60); Estimated Creatinine Clearance 53.96 ml/min; Globulin 4.5 g/dL (2.2-4.2); Glucose 341 mg/dL (74-106); Potassium 4.5 mmol/L (3.5-5.1); Sodium Level 136 mmol/L (136-145)
--- NOTE | 2018-01-30 13:38 | ED.VISSUMM ---
- ER Visit Summary Date of Service: 01/30/18 Chief Complaint: Urinary tract infection History of Present Illness: The patient is a 37 F with similar symptoms with prior urinary tract infections, apparently she was treated recently with Keflex. She still has some suprapubic pain. She had an unremarkable CT and from my interpretation of the past urinalysis is that it was normal. She has no other symptoms today. Not appear in acute distress. Moist mucous membranes, no obvious facial deformity No C-spine tenderness supple neck. Regular rate and rhythm without any obvious murmurs Clear lungs bilaterally speaking in full sentences without any obvious respiratory distress Abdomen soft slight suprapubic pain no guarding or rebound Moves all extremities without any difficulty or pain. Skin does not show any obvious rashes or lesions, no trauma. Alert oriented ?3 with no gross focal deficit Emergency Department Course and Treatment: White counts normal urinalysis is completely normal she is treated with analgesia, I do not see any signs of urine infection, she has had multiple workups and a recent CT which was negative I do not see a reason to repeat anything she is to follow up outpatient. Discharge stable condition Impression: Dysuria Pelvic pain This note was generated with [employer] dictation software. It may contain incorrect words, spelling, and punctuation that were not noted in review of the chart prior to signing ED Disposition - Plan for ED Patient: Disposition: Home or Assisted Living Chief Complaint: Complaint Instructions: ED Pelvic Pain [facility] Referrals: Will Shukla MD [Primary Care Provider] - 3-5 Days
[2018-01-30 13:52] VITALS: BP 131/69; PULSE 73; RESP 15; O2SAT 97
== END 2018-01-30 13:53 | disposition home or self-care (01) ==
PROVIDERS: Emergency Provider Emergency Medicine; Family Provider Family Medicine; PCP Family Medicine
DX: R30.0 Dysuria (principal); R10.2 Pelvic and perineal pain; Z87.440 Personal history of urinary (tract) infections; F32.9 Major depressive disorder, single episode, unspecified; F41.9 Anxiety disorder, unspecified
CPT/HCPCS: 80053; 81001; 85025; 99284; A4216; J2405

== ENCOUNTER 2018-02-14 11:47 | Emergency (ER) | payer MEDICARE, MEDICAID, SELFPAY ==
[2018-02-14 11:48] VITALS: BP 145/87; PULSE 81; RESP 18; TEMP 36.4; O2SAT 98; BMI 43.0
[2018-02-14 13:13] VITALS: BP 135/80; PULSE 80; RESP 14; O2SAT 98
[2018-02-14 13:28] LABS: Bacteria 0 SEEN /hpf (None Seen); Mucous, Urine 0 SEEN /hpf (<or=2+); Red Blood Cells-Urine 0 SEEN /hpf (0-5); Squamous Epithelial Cells - UA 0 SEEN /hpf (5-10); White Blood Cells 0 SEEN /hpf (0-5)
[2018-02-14 13:34] LABS: Color, Urine Straw (Yellow); Glucose, Dipstick 250 mg/dl (Normal); Ketone-Dipstick Negative (Negative); Leukocyte Esterase-Dipstick Negative /ul (Negative); Nitrite-Dipstick Negative (Negative); Occult Blood-Urine Negative /ul (Negative); Protein-Dipstick Negative (Negative); Urine Bilirubin Dipstick Negative (Negative); Urine Clarity Clear (Clear); Urine Urobilinogen Normal (Normal)
[2018-02-14 13:50] LABS: Pregnancy, Serum, hCG Quali. NEGATIVE Negative (0-9 Nonpreg)
[2018-02-14] MEDS: Metoclopramide 10 MG/2 ML Vial IV (14:08)
[2018-02-14] MEDS: DiphenhydrAMINE 50 MG/ML Syringe 25 MG IV (14:08)
[2018-02-14] MEDS: Ketorolac 30 MG/ML Syringe IV (14:08)
[2018-02-14] MEDS: 0.9% Normal Saline 1,000 ML 1000 ML IV (14:08)
--- NOTE | 2018-02-14 15:19 | CT_ITS ---
STUDY: CT BRAIN WITHOUT CONTRAST REASON FOR EXAM: Female, 37 years old. Headache. Migraines. RADIATION DOSAGE (If Supplied By Facility): CTDIvol = ( 44.99 ) mGy, DLP = ( 711.75 ) mGycm TECHNIQUE: Transaxial CT imaging of the brain was performed without administration of intravenous contrast material. Individualized dose optimization techniques were used for this CT. COMPARISON: April 15, 2015. FINDINGS: There is a calcification in subcutaneous tissues over the right lateral face thought to represent calcified sebaceous cyst. The soft tissues are otherwise unremarkable. Normal calvarium. Normal size ventricles and extra-axial spaces for the patient's age. Normal white matter tracts of the cerebral hemispheres. Normal basal ganglia and thalami. Normal brainstem. Normal cerebellum. There is no intracranial hemorrhage. There are no findings of an acute ischemic infarction. Normal visualized paranasal sinuses. CT/Brain/Head without Contrast IMPRESSION: No acute intracranial or calvarial abnormality or major interval change. Electronically Signed: José Luis Birmingham DO at 16:26 EDT Tel [phone], Service support ,
[2018-02-14 16:05] VITALS: BP 149/80; PULSE 85; RESP 14; O2SAT 98
[2018-02-14] MEDS: Nalbuphine 10 MG/ML Ampul IV (16:20)
--- NOTE | 2018-02-14 16:32 | ED.VISSUMM ---
- ER Visit Summary Date of Service: 02/14/18 Chief Complaint: [Headache] History of Present Illness: The patient is a 37 F [presents the emergency department with a headache that started 6 days ago.] Patient describes it as throbbing and pressure to the back of her head. Patient rates the pain as a 10 out of 10. Patient has had a history of migraines in the past but she has never had one that has lasted this long. Patient does complain of nausea and photophobia. Patient denies any falls or head injuries. She denies recent illness. She does describe some urinary frequency which is not unusual for her. Patient does have a history of spina bifida and she does see Dr. Oc Calix for neurology. Physical Examination: [HEENT-PERRLA, EOMI. Cranial nerves II through XII grossly intact. TMs clear. Mucous membranes moist. No adenopathy. Cardiovascular-regular rate and rhythm without murmur or ectopy Lungs-clear to auscultation, chest wall stable without crepitus or subcu emphysema Abdomen-normoactive bowel sounds, soft, nontender, no rebound or rigidity, no peritoneal signs. Neuro btyf-zdglew-bmfa and heel mcdonald testing within normal limits, negative Romberg, negative pronator drift, fundi benign Extremities-intact ?4, normal range of motion, normal pulses, atraumatic] Test Results: [CT scan of the brain without contrast obtained was normal. Urinalysis was normal. HCG was negative.] Emergency Department Course and Treatment: [Patient initially was medicated with a liter normal same fluid bolus and given Reglan, Benadryl, and Toradol. Her symptoms did not improve much with this. Patient was given Nubain 10 mg IV. She did have some pain relief with this and currently rates her pain an 8 out of 10. I offered to further medicate the patient however she would prefer to just go home and try to sleep to see if that resolves her headache. Patient states that she has a follow-up appointment coming up with neurology.] Treatment Plan: [Low up with neurologist.] Disposition: [Discharged home in stable condition] Impression: [Headache-suspect migraine] This note was generated with [employer] software. It may contain incorrect words, spelling, and punctuation that were not noted in review of the chart prior to signing ED Disposition - Plan for ED Patient: Chief Complaint: Headache Referrals: Will Shukla MD [Primary Care Provider] -
--- NOTE | 2018-02-14 16:37 | ED.DCSUM_ITS ---
- ER Visit Summary Date of Service: 02/14/18 Chief Complaint: [Headache] History of Present Illness: The patient is a 37 F [presents the emergency department with a headache that started 6 days ago.] Patient describes it as throbbing and pressure to the back of her head. Patient rates the pain as a 10 out of 10. Patient has had a history of migraines in the past but she has never had one that has lasted this long. Patient does complain of nausea and photophobia. Patient denies any falls or head injuries. She denies recent illness. She does describe some urinary frequency which is not unusual for her. Patient does have a history of spina bifida and she does see Dr. Oc Calix for neurology. Physical Examination: [HEENT-PERRLA, EOMI. Cranial nerves II through XII grossly intact. TMs clear. Mucous membranes moist. No adenopathy. Cardiovascular-regular rate and rhythm without murmur or ectopy Lungs-clear to auscultation, chest wall stable without crepitus or subcu emphysema Abdomen-normoactive bowel sounds, soft, nontender, no rebound or rigidity, no peritoneal signs. Neuro erja-repirg-diol and heel mcdonald testing within normal limits, negative Romberg, negative pronator drift, fundi benign Extremities-intact ?4, normal range of motion, normal pulses, atraumatic] Test Results: [CT scan of the brain without contrast obtained was normal. Urinalysis was normal. HCG was negative.] Emergency Department Course and Treatment: [Patient initially was medicated with a liter normal same fluid bolus and given Reglan, Benadryl, and Toradol. Her symptoms did not improve much with this. Patient was given Nubain 10 mg IV. She did have some pain relief with this and currently rates her pain an 8 out of 10. I offered to further medicate the patient however she would prefer to just go home and try to sleep to see if that resolves her headache. Patient states that she has a follow-up appointment coming up with neurology.] Treatment Plan: [Low up with neurologist.] Disposition: [Discharged home in stable condition] Impression: [Headache-suspect migraine] This note was generated with [employer] software. It may contain incorrect words, spelling, and punctuation that were not noted in review of the chart prior to signing ED Disposition - Plan for ED Patient: Chief Complaint: Headache Referrals: Will Shukla MD [Primary Care Provider] -
--- NOTE | 2018-02-14 16:37 | ED.DEP ---
ED Disposition - Plan for ED Patient: Chief Complaint: Headache Instructions: ED Headache Migraine, ED Cephalgia Unspecified Referrals: Will Shukla MD [Primary Care Provider] - Additional Instructions: see Dr. Calix in 3-5 days
[2018-02-14 17:12] VITALS: BP 130/70; PULSE 80; RESP 14; O2SAT 98
== END 2018-02-14 17:14 | disposition home or self-care (01) ==
PROVIDERS: Emergency Provider Emergency Medicine; Family Provider Family Medicine; PCP Family Medicine
DX: R51 Headache (principal); R11.2 Nausea with vomiting, unspecified; R35.0 Frequency of micturition; E11.9 Type 2 diabetes mellitus without complications; Q05.9 Spina bifida, unspecified; F31.9 Bipolar disorder, unspecified; F41.9 Anxiety disorder, unspecified
CPT/HCPCS: 70450; 81001; 84703; 96361; 96374; 96375; 99283; A4216

== ENCOUNTER 2018-02-16 09:29 | Emergency (ER) | payer MEDICARE, MEDICAID, SELFPAY ==
[2018-02-16 09:30] VITALS: BP 149/89; PULSE 82; RESP 20; TEMP 36.9; O2SAT 100; BMI 43.0
--- NOTE | 2018-02-16 09:56 | EKG12_ITS ---
Test Reason : CP Blood Pressure : / mmHG Vent. Rate : 078 BPM Atrial Rate : 078 BPM P-R Int : 140 ms QRS Dur : 078 ms QT Int : 392 ms P-R-T Axes : 032 059 028 degrees QTc Int : 446 ms Normal sinus rhythm Normal ECG Confirmed by YARIEL FITZGERALD, ANUM ([id number]), film editor LASHA HAY ([id number]) on 02/21/2018 8:35:57 AM Referred By: Celine Fung Confirmed By:ANUM SALDIVAR MD
[2018-02-16] MEDS: DiphenhydrAMINE 50 MG/ML Syringe IV (10:00)
[2018-02-16 10:10] LABS: Absolute Neutrophil Count 7.2 X10^3/uL (2.0-7.7); Basophil# 0.04 X10^3/uL; Basophil% 0.4 % (0-1); Eosinophil# 0.35 X10^3/uL; Eosinophils% 3.4 % (0-5); Hematocrit 35.1 % (37-47); Hemoglobin 11.6 g/dl (12.0-15.0); Lymphocyte % 17.3 % (19-41); Mean Corpuscular Hgb 30.1 pg (27.0-32.0); Mean Corpuscular Volume 90.9 fL (81-99); Mean Platelet Vol. 10.5 fl (6.2-12.0); Monocyte# 0.92 X10^3/uL; Monocyte% 8.8 % (0-10); Neutrophil # 7.24 X10^3/uL (2.7-7.7); Neutrophil % 69.4 % (47-70); Platelet Count 197 K/mm3 (150-450); RBC Distribution Width CV 14.4 % (11.6-14.6); RBC Distribution Width SD 47.1 fl (35.1-43.9); Red Blood Count 3.86 M/mm3 (4.2-5.4); White Blood Count 10.4 K/mm3 (4.4-11.0)
[2018-02-16 10:13] LABS: POSITIVE COUNT NO; POSITIVE DIFFERENTIAL NO; POSITIVE MORPHOLOGY NO
[2018-02-16 10:16] LABS: Anion Gap 9 (5-15); BUN 9 mg/dL (7-18); BUN/Creat Ratio 9.9 RATIO (10-20); Calcium,Total 8.5 mg/dL (8.5-10.1); Chloride 106 mmol/L (98-107); Creatinine, Serum 0.91 mg/dL (0.55-1.02); EST Glomerular Filtration Rate 74 mL/min (>60); Est Glom Filt Rate - Afr Amer 90 mL/min (>60); Glucose 207 mg/dL (74-106); Potassium 3.9 mmol/L (3.5-5.1); Sodium Level 138 mmol/L (136-145)
[2018-02-16 10:21] VITALS: BP 134/67; PULSE 80; RESP 20; O2SAT 95
--- NOTE | 2018-02-16 10:25 | RAD_ITS ---
STUDY: X-RAY CHEST REASON FOR EXAM: Female, 37 years old. Cough. TECHNIQUE: PA and lateral views of the chest. COMPARISON: Comparison is made with prior study dated December 16, 2017. FINDINGS: EKG electrodes are seen. Focal linear density in the left lung base suggestive of atelectasis. There is no demonstrated pleural abnormality. Normal size heart. Normal mediastinum and cristiano. Normal visualized pulmonary arteries. Normal visualized aortic arch and descending thoracic aorta. Normal visualized thoracic spine. Normal visualized ribs, clavicles, and shoulders. There is no demonstrated abnormality of the visualized soft tissue structures of the upper abdomen. RAD/Chest PA and Lateral IMPRESSION: Findings suggestive of atelectasis at the left lung base. Electronically Signed: Stephan Sood MD at 11:40 EDT Tel [phone], Service support ,
[2018-02-16 10:33] LABS: Pregnancy, Serum, hCG Quali. NEGATIVE Negative (0-9 Nonpreg)
--- NOTE | 2018-02-16 12:09 | ED.VISSUMM ---
- ER Visit Summary Date of Service: 02/16/18 Chief Complaint: Allergic reaction History of Present Illness: The patient is a 37 F presenting with concern for allergic reaction. She recently started taking Sudafed as well as Lyrica. When she took them this morning, approximately 5 minutes later she started feeling short of breath and itchy all over. She was nauseated and felt anxious as well. She also has a history of panic attacks so thought that this could possibly be a panic attack. She did not have chest pain or leg pain. She denies recent travel or mobilization. She denies any other changes in medications recently. Physical Examination: Vitals are within normal limits. Pulse ox is 100%. She is not tachycardic or tachypneic. Not in distress. No lip or tongue swelling. No uvular edema. Voice is normal. No stridor. Lungs are clear bilaterally. Abdomen is soft and nontender. No focal or lateralizing neuro findings. No tenderness along the lower extremity venous system, palpable cords, or other evidence of DVT. Normal mental status examination. No suicidal thoughts or ideation. Test Results: CBC and chemistries are both normal except for glucose of 207. HCG negative. Two-view chest x-ray negative. Emergency Department Course and Treatment: She was given IV fluids and Benadryl. She was observed for multiple hours and continued to feel better. On my most recent reexamination at 12 PM, she is completely a symptomatically. Pulse ox remains 100% on room air. No clinical evidence of DVT or pleuritic chest pain to suggest pulmonary embolism. No rash. The exact cause of her symptoms are not clear but she feels strongly that this is an allergic reaction to the Sudafed. To be safe, I asked her to stop taking this medication and follow-up closely with her doctor. At this point appears that she can be safely discharged home and I asked her to return or call 911 if she has any recurrence of symptoms. Treatment Plan: Follow up closely with her doctor Disposition: Home stable condition Impression: Initial encounter allergic reaction to medication This note was generated with [employer] software. It may contain incorrect words, spelling, and punctuation that were not noted in review of the chart prior to signing ED Disposition - Plan for ED Patient: Chief Complaint: Allergic Reaction Instructions: ED Drug React Allergic Referrals: Will Shukla MD [Primary Care Provider] - As soon as possible
[2018-02-16 12:18] VITALS: BP 129/77; PULSE 73; RESP 22; O2SAT 98
== END 2018-02-16 12:20 | disposition home or self-care (01) ==
PROVIDERS: Emergency Provider Emergency Medicine; Family Provider Family Medicine; PCP Family Medicine
DX: R06.02 Shortness of breath (principal); T44.995A Adverse effect of other drug primarily affecting the autonomic nervous system, initial encounter; T42.6X5A Adverse effect of other antiepileptic and sedative-hypnotic drugs, initial encounter; Y92.9 Unspecified place or not applicable; F41.9 Anxiety disorder, unspecified; F32.9 Major depressive disorder, single episode, unspecified; Q05.9 Spina bifida, unspecified
CPT/HCPCS: 71046; 80048; 84703; 85025; 93005; 99283

== ENCOUNTER 2018-02-23 12:00 | Outpatient (RCR) | payer MEDICARE, MEDICAID, SELFPAY ==
--- NOTE | 2018-02-07 13:00 | HP.PTEVAL_ITS ---
Patient's Visit Information HEBER BAILON is a 37 year old F referred to Physical Therapy by MARIO Lucas with a diagnosis of spina bifida. Date of Evaluation: 02/07/18 Physical Therapist: Scott Cho PT, - Visit Plan Frequency: 2-3x /Week Duration: 4-6 Weeks Plan: B LE strengthening, core strengthening, balance and proprio, gait training , nustep, and HEP - Subjective Subjective: Pt reports she was born with spina bifida, but notes she didnt find out about it until she was 33. Pt notes she has had 2 spinal surgeries since finding out about this. Pt reports she has gradually had numbness over this past 2 years in her L foot first, but now her R foot is becoming more and more numb. Pt reports now she is completely numb in her L leg from mid mcdonald downward , and R lateral foot is completely numb. Pt reports her walking is becoming progressively worse over the past couple years. Pt also notes severe difficulty with stair negotiation. Pt reports she is in pain in her legs and LB at this time. Pt reports sleep difficulty secondary to her leg pain. Pt reports a history of falls x 3 over the past couple years. Pt notes she limits her activty to avoid falls. Pt reports she will use a WC if she has to walk a long distance. - Pain LB and leg pain Pain Intensity (Out of 10): 7 Pain Intensity Range: 10 - Objective Neuro: R and L S1 is numb. L and R L4-5 is hyposensitive to light touch. B L1-2- 3 WNL to light touch. B patellar reflex= 2/3. MMT: B hip flex, abd, and add= 5/ 5. L knee flex and ext 3+/5. R knee flex and ext 4-/5. B ankle DF= 3/5. ROM: B LE's are WFL at this time. Special test: Pt can DLS with eyes open for greater than 30 sec. Pt was able to balance less than 2 sec with EC indicating poor balance with eyes closed. Gait: Pt was able to ambulate 120' I until her L leg became more numb. - Goals Goal 1:: Increase B LE strength x 1/2-1 grade to aid with stair negotiation Goal Time Frame: 4-6 Weeks Goal 2:: Increase core stability x 1 grade to aid with decreasing LBP Goal Time Frame: 4-6 Weeks Goal 3:: Pt will be able to stand for 10 seconds with eyes closed to aid with preventing future falls Goal Time Frame: 4-6 Weeks Goal 4:: Decrease LBP x 1 grade to aid with sleep Goal Time Frame: 4-6 Weeks Goal 5:: I with HEP Goal Time Frame: 4-6 Weeks - Rehabilitation Potential Physical Therapy Diagnosis: Pt has core weakness, LE weakness, decreased balance , and LBP secondary to spina bifida Rehabilitation Potential: Good - Anticipated Interventions Patient/Client Instruction: Educate patient on: Condition, Plan of Care For the Purpose of:: To improve self management Therapeutic Exercise to Include: Strength training, Endurance training, Balance training, Gait and locomotor training, Dynamic Lumbar Stabilization For the Purpose of:: To decrease pain, To improve muscle performance and motor function, To improve ability to perform ADL's Thank you for the opportunity to evaluate your patient. For Medicare and Medicare HMO plans, please review the plan of care and approve it. It will need to be FAXED BACK to us at [phone] for Medicare purposes. Please let me know if there are questions or concerns regarding this plan of care. Physician Signature: Date:
--- NOTE | 2018-04-12 15:20 | HP.PT.NRP ---
HP - Discharge Summary (1) - Patient Information HEBER BAILON was seen in my office for initial evaluation on 02/07/18. The following Plan of Care was established for this patient: Initial Frequency: 2-3x /Week Initial Duration: 4-6 Weeks - Anticipated Interventions Patient/Client Instruction: Educate patient on: Condition, Plan of Care For the Purpose of:: To improve self management Therapeutic Exercise to Include: Strength training, Endurance training, Balance training, Gait and locomotor training, Dynamic Lumbar Stabilization For the Purpose of:: To decrease pain, To improve muscle performance and motor function, To improve ability to perform ADL's This patient was last seen in our office . Pertinent comments regarding their Physical therapy will appear below: Pt was treated for 6 PT visits through the date of 02/28/18 for her LE weakness. Pt has not returned since that date, and is therefore discontinued at this time. At this point I will be discontinuing this patient from physical therapy. I would be happy to see this patient again in the future if found appropriate by the physician. Thank you! Scott Cho, PT,
== END 2018-02-23 19:00 | disposition home or self-care (01) ==
LOC: PT 12:00
PROVIDERS: Family Provider Family Medicine; PCP Family Medicine; Visit Provider Clinical Nurse Specialist Acute Care
DX: Q05.9 Spina bifida, unspecified (principal); G62.9 Polyneuropathy, unspecified
CPT/HCPCS: 97110; 97163

== ENCOUNTER 2018-02-25 22:13 | Emergency (ER) | payer MEDICARE, MEDICAID, SELFPAY ==
[2018-02-25 22:15] VITALS: BP 164/121; PULSE 77; RESP 18; TEMP 36.7; O2SAT 100; BMI 43.7
--- NOTE | 2018-02-25 22:49 | ED.VISSUMM ---
- ER Visit Summary Date of Service: 02/25/18 Chief Complaint: Numbness History of Present Illness: The patient is a 37 F who states that she went to get a hug tonight and the person hugging her caused her to fall hitting the area in her low back where she has had spina bifida surgery. She states she went numb from the neck down and cannot move from the neck down. She denies any difficulty breathing. She has not lost control of her bowel or bladder. She states that this is happened before and has resolved with rest. This was not going away so she came to the emergency department. Physical Examination: Afebrile vital signs are stable Gen: Well-nourished well-developed obese Head: Normocephalic atraumatic Eyes: Perrl EOMI ENT: TMs clear no rhinorrhea moist mucous membranes Neck: Supple no lymphadenopathy no JVD nontender CVS: Regular rate rhythm no murmurs normal S1-S2 Respiratory: No distress clear to auscultation bilaterally chest nontender Abdomen: Soft nontender nondistended normal bowel sounds no masses Back: Nontender Extremity: Nontender no edema Skin: Normal color no rash Neuro: alert orientated ?3 CN II-XII intact Psych: Normal affect normal mood Test Results: BMP was normal Emergency Department Course and Treatment: Patient is not incontinent of urine or stool. She is breathing normally. She claims to be unable to move. I asked her to set up her significant other helps lift her up and observe her tighten her lower extremity muscles and keep her leg straight as they start to rise up off the bed. Her core musculature was felt to be bo. BMP is negative. Patient was observed. The patient was moving her legs during her sleep as noted for her . She states that she is ready to go as her needs to be at work in a couple hours. I think this is supratentorial in nature. She will be discharged home Impression: 1. Somatoform disorder This note was generated with [employer] dictation software. It may contain incorrect words, spelling, and punctuation that were not noted in review of the chart prior to signing ED Disposition - Plan for ED Patient: Disposition: Home or Assisted Living Chief Complaint: Neuro S/Sx Instructions: ED Paraesthesias Referrals: Will Shukla MD [Primary Care Provider] - As Needed
--- NOTE | 2018-02-25 22:52 | ED.DCSUM_ITS ---
- ER Visit Summary Date of Service: 02/25/18 Chief Complaint: Numbness History of Present Illness: The patient is a 37 F who states that she went to get a hug tonight and the person hugging her caused her to fall hitting the area in her low back where she has had spina bifida surgery. She states she went n umb from the neck down and cannot move from the neck down. She denies any difficulty breathing. She has not lost control of her bowel or bladder. She states that this is happened before and has resolved with rest. This was not going away so she came to the emergency department. Physical Examination: Afebrile vital signs are stable Gen: Well-nourished well-developed obese Head: Normocephalic atraumatic Eyes: Perrl EOMI ENT: TMs clear no rhinorrhea moist mucous membranes Neck: Supple no lymphadenopathy no JVD nontender CVS: Regular rate rhythm no murmurs normal S1-S2 Respiratory: No distress clear to auscultation bilaterally chest nontender Abdomen: Soft nontender nondistended normal bowel sounds no masses Back: Nontender Extremity: Nontender no edema Skin: Normal color no rash Neuro: alert orientated ?3 CN II-XII intact Psych: Normal affect normal mood Test Results: BMP was normal Emergency Department Course and Treatment: Patient is not incontinent of urine or stool. She is breathing normally. She claims to be unable to move. I asked her to set up her significant other helps lift her up and observe her tighten her lower extremity muscles and keep her leg straight as they start to rise up off the bed. Her core musculature was felt to be bo. BMP is negative. Patient was observed. The patient was moving her legs during her sleep as noted for her . She states that she is ready to go as her needs to be at work in a couple hours. I think this is supratentorial in nature. She will be discharged home Impression: 1. Somatoform disorder This note was generated with [employer] dictation software. It may contain incorrect words, spelling, and punctuation that were not noted in review of the chart prior to signing ED Disposition - Plan for ED Patient: Disposition: Home or Assisted Living Chief Complaint: Neuro S/Sx Instructions: ED Paraesthesias Referrals: Will Shukla MD [Primary Care Provider] - As Needed
[2018-02-25 23:19] LABS: Anion Gap 7 (5-15); BUN 9 mg/dL (7-18); BUN/Creat Ratio 9.9 RATIO (10-20); Calcium,Total 8.8 mg/dL (8.5-10.1); Chloride 104 mmol/L (98-107); Creatinine, Serum 0.91 mg/dL (0.55-1.02); EST Glomerular Filtration Rate 74 mL/min (>60); Est Glom Filt Rate - Afr Amer 90 mL/min (>60); Glucose 157 mg/dL (74-106); Potassium 3.7 mmol/L (3.5-5.1); Sodium Level 135 mmol/L (136-145)
[2018-02-26 01:05] VITALS: BP 155/96; PULSE 87; RESP 15; O2SAT 97
[2018-02-26 02:59] VITALS: BP 155/96; PULSE 87; RESP 16; O2SAT 97
== END 2018-02-26 03:00 | disposition home or self-care (01) ==
PROVIDERS: Emergency Provider Emergency Medicine; Family Provider Family Medicine; PCP Family Medicine
DX: F45.9 Somatoform disorder, unspecified (principal); E66.9 Obesity, unspecified; E11.9 Type 2 diabetes mellitus without complications; Q05.9 Spina bifida, unspecified
CPT/HCPCS: 36415; 80048; 99282

== ENCOUNTER 2018-03-03 16:45 | Emergency (ER) | payer MEDICARE, MEDICAID, SELFPAY ==
[2018-03-03 16:47] VITALS: BP 129/82; PULSE 79; RESP 17; TEMP 37.1; O2SAT 98; BMI 42.6
--- NOTE | 2018-03-03 17:39 | RAD_ITS ---
STUDY: X-RAY - LUMBAR SPINE REASON FOR EXAM: Female, 37 years old. Low back pain TECHNIQUE: 3 view(s) of the lumbar spine were obtained. COMPARISON: None FINDINGS: Evidence of previous back surgery with laminectomy. Normal lumbar lordosis. There is no substantial scoliosis. There is a normal alignment of the vertebrae. Normal vertebral bodies and endplates. There is multi-level degenerative disc disease with multi-level disc space narrowing. There is no demonstrated fracture. 6 Multiple Sitzmarkers from previous bowel motility study. Calcifications overlying the left renal shadow and in the right lower quadrant of uncertain significance RAD/Lumbar Spine 2 or 3 Views IMPRESSION: Degenerative and postsurgical changes in the lumbar spine. No demonstrated acute abnormality Electronically Signed: Jarod Jaimes MD at 18:38 EDT , Service support ,
[2018-03-03] MEDS: Ondansetron 4 MG/2 ML Vial IV (18:05)
[2018-03-03] MEDS: Morphine 4 MG/ML Syringe IV (18:05)
[2018-03-03 18:46] VITALS: RESP 18
[2018-03-03 19:07] LABS: Bacteria 0 SEEN /hpf (None Seen); Color, Urine Yellow (Yellow); Glucose, Dipstick 1000 mg/dl (Normal); Ketone-Dipstick Negative (Negative); Leukocyte Esterase-Dipstick Negative /ul (Negative); Mucous, Urine 0 SEEN /hpf (<or=2+); Nitrite-Dipstick Negative (Negative); Occult Blood-Urine 150 /ul (Negative); Protein-Dipstick 15 mg/dl (Negative); Specific Gravity, Urine 1.015 (1.002-1.030); Squamous Epithelial Cells - UA 0 SEEN /hpf (5-10); Urine Bilirubin Dipstick Negative (Negative); Urine Clarity Clear (Clear); Urine Urobilinogen Normal (Normal); Urine pH 6.5 (5.0 - 8.0); White Blood Cells 0 SEEN /hpf (0-5)
[2018-03-03 19:12] LABS: Red Blood Cells-Urine 10-25 SEEN /hpf (0-5)
[2018-03-03 19:28] VITALS: BP 128/74; PULSE 72; RESP 16; O2SAT 99
--- NOTE | 2018-03-03 20:12 | ED.RN ---
PT calls RN into room. She has shooting pain up her back. Her left side in numb and the right side is tingling.
--- NOTE | 2018-03-03 21:01 | ED.VISSUMM ---
- ER Visit Summary Date of Service: 03/03/18 Chief Complaint: Low midline back pain secondary to fall. History of Present Illness: The patient is a 37 F who has history of spina bifida who reports numbness tingling her legs. She reports she has history of spina bifida. She reports incontinence of urine. She denies dysuria, frequency, urgency or hematuria. She denies history of renal ureterolithiasis. She denies fever, chills or night sweats. She states she has weakness to left lower extremity, which is chronic. She also reports altered sensation left lower extremity. She denies any cardiac respiratory symptoms. She denies nausea, vomiting or diarrhea. She does self cath if unable to void. Physical Examination: Vital signs noted and blood pressure slightly elevated 128/74. She is not febrile. BMI is 42.6. Head is atraumatic normocephalic. Pupils are equal round reactive. Extraocular muscles are intact. TMs are pearly white with landmarks noted. Nares patent with no drainage. Posterior pharynx without erythema or exudate. Uvula is midline. There is no dysphonia or dysphasia. Trachea is midline. There is no stridor with auscultation of the neck. Heart is regular without murmur, gallop or rub. S1 and S2 are normal. Lungs are clear to auscultation with good movement of air bilaterally. Abdomen is soft nontender. There are well-healed scars noted. There is a midline low back scar that is well-healed. She has pain to palpation over the lumbar spinous process. There is no CVA tenderness noted. There is no outward signs of trauma. There is no pain the patient the pelvis. There is weakness of the left lower extremity, which is old according the patient. Total ankle reflex are 1-2+ and symmetric. EHL is diminished on the left, which is old. Sensation is altered on the left, which is old. Straight leg test is negative. No perianal decreased sensation. Test Results: Three-view x-ray of the lumbar sacral spine was obtained with minimal degenerative changes noted. Is no evidence of compression fracture. There is no transverse process fracture is noted. Emergency Department Course and Treatment: IV was established and she was medicated with 4 mg of Zofran 4 mg of morphine. X-ray was obtained to evaluate for fracture since she had midline pain after fall. Treatment Plan: Discharge to home with oral analgesia Disposition: Discharged home in stable improved condition. She was reassessed at 2100. Impression: 1. Midline back pain secondary to trauma 2. History of spina bifida 3. Type 2 diabetes This note was generated with [employer] dictation software. It may contain incorrect words, spelling, and punctuation that were not noted in review of the chart prior to signing ED Disposition - Plan for ED Patient: Disposition: Home or Assisted Living Chief Complaint: Numb/Ting Instructions: ED Contusion Back Prescriptions: Hydrocodone Bitart/Apap 5-325 [[place] 5MG-325MG] 1 tablet PO Q6H PRN PRN 3 Days #10 tablet PRN Reason: Pain Referrals: Will Shukla MD [Primary Care Provider] - Additional Instructions: Your prescription was electronically transmitted to [facility] your preferred pharmacy.
--- NOTE | 2018-03-03 21:06 | ED.DCSUM_ITS ---
- ER Visit Summary Date of Service: 03/03/18 Chief Complaint: Low midline back pain secondary to fall. History of Present Illness: The patient is a 37 F who has history of spina bifida who reports numbness tingling her legs. She reports she has history of spina bifida. She reports incontinence of urine. She denies dysuria, frequency, urgency or hematuria. She denies history of renal ureterolithiasis. She denies fever, chills or night sweats. She states she has weakness to left lower extremity, which is chronic. She also reports altered sensation left lower extremity. She denies any cardiac respiratory symptoms. She denies nausea, vomiting or diarrhea. She does self cath if unable to void. Physical Examination: Vital signs noted and blood pressure slightly elevated 128/74. She is not febrile. BMI is 42.6. Head is atraumatic normocephalic. Pupils are equal round reactive. Extraocular muscles are intact. TMs are pearly white with landmarks noted. Nares patent with no drainage. Posterior pharynx without erythema or exudate. Uvula is midline. There is no dysphonia or dysphasia. Trachea is midline. There is no stridor with auscultation of the neck. Heart is regular without murmur, gallop or rub. S1 and S2 are normal. Lungs are clear to auscultation with good movement of air bilaterally. Abdomen is soft nontender. There are well-healed scars noted. There is a midline low back scar that is well-healed. She has pain to palpation over the lumbar spinous process. There is no CVA tenderness noted. There is no outward signs of trauma. There is no pain the patient the pelvis. There is weakness of the left lower extremity, which is old according the patient. Total ankle reflex are 1-2+ and symmetric. EHL is diminished on the left, which is old. Sensation is altered on the left, which is old. Straight leg test is negative. No perian al decreased sensation. Test Results: Three-view x-ray of the lumbar sacral spine was obtained with minimal degenerative changes noted. Is no evidence of compression fracture. There is no transverse process fracture is noted. Emergency Department Course and Treatment: IV was established and she was medicated with 4 mg of Zofran 4 mg of morphine. X-ray was obtained to evaluate for fracture since she had midline pain after fall. Treatment Plan: Discharge to home with oral analgesia Disposition: Discharged home in stable improved condition. She was reassessed at 2100. Impression: 1. Midline back pain secondary to trauma 2. History of spina bifida 3. Type 2 diabetes This note was generated with [employer] dictation software. It may contain incorrect words, spelling, and punctuation that were not noted in review of the chart prior to signing ED Disposition - Plan for ED Patient: Disposition: Home or Assisted Living Chief Complaint: Numb/Ting Instructions: ED Contusion Back Prescriptions: Hydrocodone Bitart/Apap 5-325 [[place] 5MG-325MG] 1 tablet PO Q6H PRN PRN 3 Days #10 tablet PRN Reason: Pain Referrals: Will Shukla MD [Primary Care Provider] - Additional Instructions: Your prescription was electronically transmitted to [facility] your preferred pharmacy.
== END 2018-03-03 21:30 | disposition home or self-care (01) ==
PROVIDERS: Emergency Provider Emergency Medicine; Family Provider Family Medicine; PCP Family Medicine
DX: M54.9 Dorsalgia, unspecified (principal); E11.9 Type 2 diabetes mellitus without complications; R32 Unspecified urinary incontinence; E66.9 Obesity, unspecified; Q05.9 Spina bifida, unspecified; R20.2 Paresthesia of skin; F32.9 Major depressive disorder, single episode, unspecified; R53.1 Weakness; Z68.41 Body mass index [BMI] 40.0-44.9, adult
CPT/HCPCS: 72100; 81001; 96374; 96375; 99285; A4216; J2405

== ENCOUNTER 2018-03-06 23:10 | Emergency (ER) | payer MEDICARE, MEDICAID, SELFPAY ==
[2018-03-06 23:12] VITALS: BP 118/70; PULSE 84; RESP 16; TEMP 36.8; O2SAT 100; BMI 45.3
[2018-03-06 23:16] VITALS: O2SAT 99
--- NOTE | 2018-03-07 00:35 | CT_ITS ---
STUDY: CT CERVICAL SPINE WITHOUT CONTRAST REASON FOR EXAM: Female, 37 years old. Patient fell RADIATION DOSAGE (If Supplied By Facility): CTDIvol = ( 31.48 ) mGy, DLP = ( 591.59 ) mGycm TECHNIQUE: High resolution transaxial imaging was performed without contrast material. Sagittal and coronal images were reconstructed. Individualized dose optimization techniques were used for this CT. 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 The craniovertebral junction is flattened but no dislocation. There is a slight loss of the normal lordotic curvature of cervical spine. There are no acute fractures or dislocations. The disc spaces are maintained. . CT/Spine Cervical without Contras IMPRESSION: No acute fractures. 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
--- NOTE | 2018-03-07 00:35 | CT_ITS ---
STUDY: CT BRAIN WITHOUT CONTRAST REASON FOR EXAM: Female, 37 years old. Patient fell RADIATION DOSAGE (If Supplied By Facility): CTDIvol = ( 44.99 ) mGy, DLP = ( 728.62 ) mGycm TECHNIQUE: Transaxial CT imaging of the brain was performed without administration of intravenous contrast material. Individualized dose optimization techniques were used for this CT. COMPARISON: None. FINDINGS: Normal soft tissue structures. Normal calvarium. Normal size ventricles and extra-axial spaces for the patient's age. Normal white matter tracts of the cerebral hemispheres. Normal basal ganglia and thalami. Normal brainstem. Normal cerebellum. There is no intracranial hemorrhage. There are no findings of an acute ischemic infarction. Normal visualized paranasal sinuses. CT/Brain/Head without Contrast IMPRESSION: Normal unenhanced CT scan of the brain. No acute findings in the brain Electronically Signed: Dylan Quintana MD at 1:23 EDT Tel , Service support ,
--- NOTE | 2018-03-07 00:36 | ED.VISSUMM ---
- ER Visit Summary Date of Service: 03/07/18 Chief Complaint: Fall, head injury History of Present Illness: The patient is a 37 F here with significant other mechanical fall today. Patient history of spinal bifida had 2 spinal surgeries most recent was 5 years ago. Follow[address] by Dr. Calix. Chronic numbness lower extremities left greater than right. Over the past week has been having falls with leg giving out. Today states had 6 falls all due to leg feeling weak and giving out. States 2 falls ago an hour ago fell outside hitting head on the ground. No loss of conscious. Transient nausea. Mild neck pain. No arm weakness or paresthesias. Patient does not take anticoagulation medications. Reports enough help at home, supposed to ambulate with a four-point cane, however 1 of the rubber supports are missing. Physical Examination: General: Alert and oriented ?3, no acute distress HEENT: Normocephalic, atraumatic. Moist mucosa membranes. No hemotympanum. No scalp hematoma. No lacerations. Pupils equal and reactive to light. Neck: supple, mild paracervical tenderness. No step-offs. Cardiovascular: Regular rate and rhythm, no murmurs Respiratory: Normal breath sounds, symmetric, no distress Abdomen: Soft, nontender, nondistended Extremities: Nontender, no edema, pulses intact ?4 Neuro: no focal neurological deficits. Test Results: CT head and neck, no intracranial process. 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 Emergency Department Course and Treatment: Patient no focal neurologic deficits. His head injury, images obtained. No intracranial process. 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 History of spinal bifida. Have a multiple falls with her chronic condition, other states there is enough help at home. 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 Discussed using Tylenol for concussion treatment. Concussion precautions discussed. She does have a follow-up with her neurologist on the . She will keep that appointment. She declined any medications in the ED. Treatment Plan: [] Disposition: Discharge Impression: 1. Concussion without loss of consciousness 2. Multiple falls 3. History of spinal bifida This note was generated with [employer] software. It may contain incorrect words, spelling, and punctuation that were not noted in review of the chart prior to signing ED Disposition - Plan for ED Patient: Disposition: Home or Assisted Living Chief Complaint: Fall Diagnosis: Concussion without loss of consciousness, initial encounter, Multiple falls, History of spina bifida Instructions: ED Concussion Referrals: Will Shukla MD [Primary Care Provider] - Oc Calix MD [STAFF PHYSICIAN] - Keep Mireya appointment Additional Instructions: Use Tylenol 1 g every 6 hours as needed.
[2018-03-07 01:21] VITALS: RESP 16; O2SAT 100
[2018-03-07 02:26] VITALS: BP 116/79; PULSE 79; RESP 19; O2SAT 96
== END 2018-03-07 02:15 | disposition home or self-care (01) ==
PROVIDERS: Emergency Provider Emergency Medicine; Family Provider Family Medicine; PCP Family Medicine
DX: S06.0X0A Concussion without loss of consciousness, initial encounter (principal); W19.XXXA Unspecified fall, initial encounter; Y93.9 Activity, unspecified; Y92.9 Unspecified place or not applicable; R29.6 Repeated falls; Q05.9 Spina bifida, unspecified; E11.9 Type 2 diabetes mellitus without complications; F41.9 Anxiety disorder, unspecified; F32.9 Major depressive disorder, single episode, unspecified; Z79.84 Long term (current) use of oral hypoglycemic drugs; Z79.899 Other long term (current) drug therapy
CPT/HCPCS: 70450; 72125; 99284

== ENCOUNTER 2018-03-14 14:58 | Emergency (ER) | payer MEDICARE, MEDICAID, SELFPAY ==
[2018-03-14 15:00] VITALS: BP 141/93; PULSE 85; RESP 16; TEMP 37.2; O2SAT 99; BMI 43.0
--- NOTE | 2018-03-14 15:18 | ED.VISSUMM ---
- ER Visit Summary Date of Service: 03/14/18 Chief Complaint: Dysuria History of Present Illness: The patient is a [address] Shukla and her urologist is Dr. Sears in [place]. She has a history of spina bifida with neurogenic bladder. She reports that she self caths 3 times a day. States she is not happy for the past 2 days because she is having frequent urination with small volumes. She also complains of dysuria and a small amount of hematuria. She reports that she has a sharp, stabbing right flank pain and is 10 out of 10 in severity. Is worsened by nothing and relieved by nothing. Her last menstrual period was 2 weeks ago. No vaginal bleeding or discharge. Patient denies any fever or chills. She reports is been nausea and vomited 3-4 times since 8:00 this morning. No blood or emesis. Physical Examination: Vitals: Stable. Afebrile. General: Well-nourished and well-developed. Head: Normocephalic atraumatic. Neck: Supple, no lymphadenopathy. No JVD. Nontender. Cardiovascular: Regular rate and rhythm. No murmurs. Respiratory: No respiratory distress. Clear to auscultation bilaterally. Abdominal: Soft, mild diffuse tenderness palpation, nondistended, normal bowel sounds. No guarding, rebound, or peritoneal signs. Back: Moderate right CVA tenderness. Extremities: Nontender, no edema. Skin: Normal color, no rash. Neurologic: Alert and oriented ?3. Cranial nerves II through XII are intact. Normal strength and sensation. Psych: Normal affect. Test Results: CBC is marked for hematocrit of 36.9 immature granulocytes 1.1%. Chem-7 is marked for sodium 133 and glucose 365. UA shows leukocytes, 10-25 white blood cells, 1+ bacteria, and 3+ mucus. test was negative. Emergency Department Course and Treatment: This is the patient's th visit to this emergency department this year. She had an IV placed and was given Toradol and Zofran IV. Patient's recent urine cultures were reviewed. The most recent one in December was mixed gram-positive. In January 2017 it was MSSA. In December 2016 it was Enterobacter that was sensitive to fluoroquinolones. She was given a dose of Cipro IV and her urine was sent for culture. Treatment Plan: Patient will be discharged with Cipro and Zofran. Instructed to follow-up with her primary care physician in 3-5 days for another exam. Return to the emergency department for any worsening symptoms. Disposition: To home in improved and stable condition. Impression: 1. UTI. 2. Hyperglycemia with vwx-gviehkw-tiytiumit diabetes mellitus. 3. Spina bifida with neurogenic bladder. This note was generated with [employer] dictation software. It may contain incorrect words, spelling, and punctuation that were not noted in review of the chart prior to signing ED Disposition - Plan for ED Patient: Chief Complaint: Complaint Instructions: ED UTI Cystitis Female Prescriptions: Ondansetron [Zofran Odt] 4 mg PO Q8H PRN PRN #10 tablet PRN Reason: Nausea Ciprofloxacin [Cipro] 500 mg PO BID #14 tablet Referrals: Will Shukla MD [Primary Care Provider] - 3-5 Days
--- NOTE | 2018-03-14 15:21 | ED.DCSUM_ITS ---
- ER Visit Summary Date of Service: 03/14/18 Chief Complaint: Dysuria History of Present Illness: The patient is a [address] Shukla and her urologist is Dr. Sears in [place]. She has a history of spina bifida with neurogenic bladder. She reports that she self caths 3 times a day. States she is not happy for the past 2 days because she is having frequent urination with small volumes. She also complains of dysuria and a small amount of hematuria. She reports that she has a sharp, stabbing right flank pain and is 10 out of 10 in severity. Is worsened by nothing and relieved by nothing. Her last menstrual period was 2 weeks ago. No vaginal bleeding or discharge. Patient denies any fever or chills. She reports is been nausea and vomited 3-4 times since 8:00 this morning. No blood or emesis. Physical Examination: Vitals: Stable. Afebrile. General: Well-nourished and well-developed. Head: Normocephalic atraumatic. Neck: Supple, no lymphadenopathy. No JVD. Nontender. Cardiovascular: Regular rate and rhythm. No murmurs. Respiratory: No respiratory distress. Clear to auscultation bilaterally. Abdominal: Soft, mild diffuse tenderness palpation, nondistended, normal bowel sounds. No guarding, rebound, or peritoneal signs. Back: Moderate right CVA tenderness. Extremities: Nontender, no edema. Skin: Normal color, no rash. Neurologic: Alert and oriented ?3. Cranial nerves II through XII are intact. Normal strength and sensation. Psych: Normal affect. Test Results: CBC is marked for hematocrit of 36.9 immature granulocytes 1.1%. Chem-7 is marked for sodium 133 and glucose 365. UA shows leukocytes, 10-25 white blood cells, 1+ bacteria, and 3+ mucus. test was negative. Emergency Department Course and Treatment: This is the patient's th visit to this emergency department this year. She had an IV placed and was given Toradol and Zofran IV. Patient's recent urine cultures were reviewed. The most recent one in December was mixed gram-positive. In January 2017 it was MSSA. In December 2016 it was Enterobacter that was sensitive to fluoroquinolones. She was given a dose of Cipro IV and her urine was sent for culture. Treatment Plan: Patient will be discharged with Cipro and Zofran. Instructed to follow-up with her primary care physician in 3-5 days for another exam. Return to the emergency department for any worsening symptoms. Disposition: To home in improved and stable condition. Impression: 1. UTI. 2. Hyperglycemia with jyj-qdzhiwh-idyiecrds diabetes mellitus. 3. Spina bifida with neurogenic bladder. This note was generated with [employer] dictation software. It may contain incorrect words, spelling, and punctuation that were not noted in review of the chart prior to signing ED Disposition - Plan for ED Patient: Chief Complaint: Complaint Instructions: ED UTI Cystitis Female Prescriptions: Ondansetron [Zofran Odt] 4 mg PO Q8H PRN PRN #10 tablet PRN Reason: Nausea Ciprofloxacin [Cipro] 500 mg PO BID #14 tablet Referrals: Will Shukla MD [Primary Care Provider] - 3-5 Days
[2018-03-14 15:28] LABS: Red Blood Cells-Urine 0 SEEN /hpf (0-5)
[2018-03-14 15:31] LABS: Color, Urine Yellow (Yellow); Glucose, Dipstick 1000 mg/dl (Normal); Ketone-Dipstick Negative (Negative); Leukocyte Esterase-Dipstick 100 /ul (Negative); Nitrite-Dipstick Negative (Negative); Occult Blood-Urine Negative /ul (Negative); Protein-Dipstick 15 mg/dl (Negative); Specific Gravity, Urine 1.015 (1.002-1.030); Urine Bilirubin Dipstick Negative (Negative); Urine Clarity Cloudy (Clear); Urine Urobilinogen Normal (Normal)
[2018-03-14] MEDS: 0.9% Normal Saline 1,000 ML 1000 ML IV (15:32)
[2018-03-14] MEDS: Ketorolac 30 MG/ML Syringe IV (15:32)
[2018-03-14] MEDS: Ondansetron 4 MG/2 ML Vial IV (15:32)
[2018-03-14 15:41] LABS: White Blood Cells 10-25 SEEN /hpf (0-5)
[2018-03-14 15:42] LABS: Bacteria 1+ /hpf (None Seen); Mucous, Urine 3+ /hpf (<or=2+); Squamous Epithelial Cells - UA 0-5 SEEN /hpf (5-10)
[2018-03-14 15:48] LABS: Absolute Lymphocyte Count 2.17 X10^3/ul (0.83-4.51); Basophil# 0.05 X10^3/uL; Basophil% 0.5 % (0-1); Eosinophil# 0.29 X10^3/uL; Eosinophils% 2.7 % (0-5); Hematocrit 36.9 % (37-47); Hemoglobin 12.2 g/dl (12.0-15.0); Lymphocyte # 2.17 X10^3/ul (4.0); Lymphocyte % 20.5 % (19-41); Mean Corp Hgb Conc 33.1 g/gl (32-36); Mean Corpuscular Hgb 30.5 pg (27.0-32.0); Mean Corpuscular Volume 92.3 fL (81-99); Mean Platelet Vol. 10.8 fl (6.2-12.0); Monocyte# 0.95 X10^3/uL; Neutrophil # 7.02 X10^3/uL (2.7-7.7); Neutrophil % 66.2 % (47-70); Platelet Count 187 K/mm3 (150-450); RBC Distribution Width SD 46.4 fl (35.1-43.9); White Blood Count 10.6 K/mm3 (4.4-11.0)
[2018-03-14 15:55] LABS: POSITIVE COUNT NO; POSITIVE DIFFERENTIAL NO; POSITIVE MORPHOLOGY NO
[2018-03-14 15:59] LABS: Anion Gap 5 (5-15); BUN 9 mg/dL (7-18); BUN/Creat Ratio 8.8 RATIO (10-20); Calcium,Total 8.8 mg/dL (8.5-10.1); Chloride 101 mmol/L (98-107); Creatinine, Serum 1.02 mg/dL (0.55-1.02); EST Glomerular Filtration Rate 65 mL/min (>60); Est Glom Filt Rate - Afr Amer 79 mL/min (>60); Estimated Creatinine Clearance 60.31 ml/min; Glucose 365 mg/dL (74-106); Sodium Level 133 mmol/L (136-145)
[2018-03-14 16:11] LABS: Pregnancy, Serum, hCG Quali. NEGATIVE Negative (0-9 Nonpreg)
[2018-03-14] MEDS: Ciprofloxacin 400 MG/200 ML BAG 200 MG IV (16:20)
[2018-03-14] MEDS: Morphine 4 MG/ML Syringe IV (17:27)
[2018-03-14 17:48] VITALS: BP 138/77; PULSE 84; RESP 16
== END 2018-03-14 17:49 | disposition home or self-care (01) ==
LOC: ED 15:19
PROVIDERS: Emergency Provider Emergency Medicine; Family Provider Family Medicine; PCP Family Medicine
DX: N39.0 Urinary tract infection, site not specified (principal); E11.65 Type 2 diabetes mellitus with hyperglycemia; Q05.9 Spina bifida, unspecified; N31.9 Neuromuscular dysfunction of bladder, unspecified; G43.909 Migraine, unspecified, not intractable, without status migrainosus; F32.9 Major depressive disorder, single episode, unspecified; M54.9 Dorsalgia, unspecified; G89.29 Other chronic pain; Z86.19 Personal history of other infectious and parasitic diseases; Z87.440 Personal history of urinary (tract) infections; Z79.84 Long term (current) use of oral hypoglycemic drugs; Z79.899 Other long term (current) drug therapy
CPT/HCPCS: 80048; 81001; 84703; 85025; 87077; 87086; 87088; 96361; 96365; 96374; 96375; 99283; J0744; J2405

== ENCOUNTER 2018-03-19 22:19 | Emergency (ER) | payer MEDICARE, MEDICAID, SELFPAY ==
[2018-03-19 22:19] VITALS: BP 139/92; PULSE 91; RESP 18; TEMP 37.1; O2SAT 98; BMI 43.0
--- NOTE | 2018-03-19 22:50 | RAD_ITS ---
STUDY: X-RAY CHEST REASON FOR EXAM: Female, 37 years old. Chest pain. TECHNIQUE: Portable chest. COMPARISON: 02/16/2018. FINDINGS: The lungs are clear and expanded. There is no demonstrated pleural abnormality. Normal size heart. Normal mediastinum and cristiano. Normal visualized pulmonary arteries. Normal visualized aortic arch and descending thoracic aorta. Normal visualized thoracic spine. Normal visualized ribs, clavicles, and shoulders. There is no demonstrated abnormality of the visualized soft tissue structures of the upper abdomen. RAD/Chest 1 View (Portable) IMPRESSION: Normal x-ray examination of the chest. Electronically Signed: Jessie Patel MD at 23:07 EDT Tel , Service support ,
--- NOTE | 2018-03-19 22:51 | EKG12_ITS ---
Test Reason : ABD PAIN Blood Pressure : / mmHG Vent. Rate : 086 BPM Atrial Rate : 086 BPM P-R Int : 136 ms QRS Dur : 080 ms QT Int : 388 ms P-R-T Axes : 019 027 014 degrees QTc Int : 464 ms Normal sinus rhythm Normal ECG Confirmed by STEFANI FITZGERLAD, RASHAWN ([id number]), legal editor LASHA HAY ([id number] on 03/21/2018 1:31:31 PM Referred By: ISAURA Confirmed By:RASHAWN KO MD
--- NOTE | 2018-03-19 22:51 | CT_ITS ---
STUDY: CT ABDOMEN AND PELVIS WITHOUT CONTRAST REASON FOR EXAM: Female, 37 years old. Urinary tract infection and back pain RADIATION DOSAGE (If Supplied By Facility): CTDIvol = ( 20.04 ) mGy, DLP = ( 1066.21 ) mGycm TECHNIQUE: Transaxial images were obtained from the dome of the diaphragm to the symphysis pubis without oral contrast, and without intravenous contrast. Sagittal and coronal images were reconstructed. Individualized dose optimization techniques were used for this CT. COMPARISON: None. FINDINGS: The lung bases are clear. There is fatty infiltration of the liver. No dilated intrahepatic biliary radicles. Previous cholecystectomy The spleen is normal. The pancreas is normal. Both adrenals are normal. There is a right-sided hydroureteronephrosis with no demonstrable obstructing calculus. There is a 2.7 cm right renal cyst. The left kidney is normal The stomach is normal. There is no bowel distention, acute appendicitis or diverticulitis. No constricting lesions are seen in large bowel. There is evidence of ventral hernia repair with a deep wound in the umbilical region. There is no ascites or any free intraperitoneal air. No indication of epiploic appendagitis The vascular structures in the retroperitoneum are normal. There is no retrocrural, retroperitoneal or mesenteric adenopathy. Deroofing at L3, L4, L5 and S1. There is a small 7.8 mm diverticulum from the left margin of the urinary bladder. The uterus is normal--. There is no inguinal or pelvic adenopathy. There is no inguinal hernia. . CT/Abdomen/Pelvis without Cont IMPRESSION: A right sided hydroureteronephrosis with no demonstrable obstruction calculus in the right ureter. A tiny 7.8 mm diverticulum in the left margin of the urinary bladder. Previous surgery (bilateral laminectomies) extending from L3 to S1 Electronically Signed: Dylan Quintana MD at 0:11 EDT Tel , Service support ,
--- NOTE | 2018-03-19 22:58 | ED.VISSUMM ---
- ER Visit Summary Date of Service: 03/19/18 Chief Complaint: Right flank pain History of Present Illness: The patient is a 37 F presenting with right flank pain which has been ongoing for the past week. She was seen in the ED on Monday. She states she was given a prescription for Cipro for a bladder infection. She states she continues to have pain and vomiting at home. She states she has vomited 5 times today. Denies blood in her emesis. She had subjective fever at home. She also complains of chest pain which has been ongoing for the past week. She states this is worsened with cough. She has been taking ibuprofen at home. She denies other complaints. Physical Examination: Vitals are stable. Patient is afebrile. Alert no acute distress. HEENT exam is unremarkable. Neck is supple. Lungs are clear and equal bilaterally. Heart is regular rate and rhythm. Abdomen is soft right lower quadrant tenderness with no rebound or guarding Back: Right CVA tenderness Extremities are unremarkable. Skin is warm and dry. Remainder of exam is unremarkable. Emergency Department Course and Treatment: Patient given IV fluids, morphine, Zofran. EKG is sinus rate of 86 with no acute ischemic changes. CBC, chemistries unremarkable other than glucose 196. Urinalysis shows 50-100 red blood cells, 0 white blood cells. HCG negative. D-dimer 0.55. Troponin is negative. Chest x-ray shows no acute process. CT abdomen pelvis shows right sided hydroureteronephrosis with no demonstrable obstruction calculus in the right ureter. A tiny 7.8 mm diverticulum in the left margin of the urinary bladder. Right-sided hydro is similar to previous studies. Due to elevated d-dimer, CTA chest was obtained and shows no acute process. Patient is given a prescription for Zofran. She is advised to follow-up with Dr. Reza and her primary care physician. She is advised to return to ED if worsening complaints. Disposition: Discharge home Impression: Abdominal pain, atypical chest pain This note was generated with [employer] dictation software. It may contain incorrect words, spelling, and punctuation that were not noted in review of the chart prior to signing ED Disposition - Plan for ED Patient: Disposition: Home or Assisted Living Chief Complaint: Abd Pain Instructions: ED Abdominal Pain Unkn Cause Prescriptions: Ondansetron [Zofran Odt] 4 mg PO Q8H PRN PRN #10 tablet PRN Reason: Nausea Referrals: Will Shukla MD [Primary Care Provider] - Herbert Reza MD [STAFF PHYSICIAN] -
--- NOTE | 2018-03-19 23:01 | ED.DCSUM_ITS ---
- ER Visit Summary Date of Service: 03/19/18 Chief Complaint: Right flank pain History of Present Illness: The patient is a 37 F presenting with right flank pain which has been ongoing for the past week. She was seen in the ED on Monday. She states she was given a prescription for Cipro for a bladder i nfection. She states she continues to have pain and vomiting at home. She states she has vomited 5 times today. Denies blood in her emesis. She had subjective fever at home. She also complains of chest pain which has been ongoing for the past week. She states this is worsened with cough. She has been taking ibuprofen at home. She denies other complaints. Physical Examination: Vitals are stable. Patient is afebrile. Alert no acute distress. HEENT exam is unremarkable. Neck is supple. Lungs are clear and equal bilaterally. Heart is regular rate and rhythm. Abdomen is soft right lower quadrant tenderness with no rebound or guarding Back: Right CVA tenderness Extremities are unremarkable. Skin is warm and dry. Remainder of exam is unremarkable. Emergency Department Course and Treatment: Patient given IV fluids, morphine, Zofran. EKG is sinus rate of 86 with no acute ischemic changes. CBC, chemistries unremarkable other than glucose 196. Urinalysis shows 50-100 red blood cells, 0 white blood cells. HCG negative. D-dimer 0.55. Troponin is negative. Chest x-ray shows no acute process. CT abdomen pelvis shows right sided hydroureteronephrosis with no demonstrable obstruction calculus in the right ureter. A tiny 7.8 mm diverticulum in the left margin of the urinary bladder. Right-sided hydro is similar to previous studies. Due to elevated d- dimer, CTA chest was obtained and shows no acute process. Patient is given a prescription for Zofran. She is advised to follow-up with Dr. Reza and her primary care physician. She is advised to return to ED if worsening complaints. Disposition: Discharge home Impression: Abdominal pain, atypical chest pain This note was generated with [employer] dictation software. It may contain incorrect words, spelling, and punctuation that were not noted in review of the chart prior to signing ED Disposition - Plan for ED Patient: Disposition: Home or Assisted Living Chief Complaint: Abd Pain Instructions: ED Abdominal Pain Unkn Cause Prescriptions: Ondansetron [Zofran Odt] 4 mg PO Q8H PRN PRN #10 tablet PRN Reason: Nausea Referrals: Will Shukla MD [Primary Care Provider] - Herbert Reza MD [STAFF PHYSICIAN] -
[2018-03-19] MEDS: 0.9% Normal Saline 1,000 ML 1000 ML IV (23:24)
[2018-03-19] MEDS: Morphine 4 MG/ML Syringe IV (23:24)
[2018-03-19] MEDS: Ondansetron 4 MG/2 ML Vial IV (23:25)
[2018-03-19 23:35] LABS: Absolute Lymphocyte Count 2.64 X10^3/ul (0.83-4.51); Absolute Neutrophil Count 6.6 X10^3/uL (2.0-7.7); Basophil# 0.04 X10^3/uL; Basophil% 0.4 % (0-1); Eosinophil# 0.56 X10^3/uL; Eosinophils% 5.2 % (0-5); Hematocrit 37.7 % (37-47); Hemoglobin 12.3 g/dl (12.0-15.0); Lymphocyte # 2.64 X10^3/ul (4.0); Lymphocyte % 24.5 % (19-41); Mean Corp Hgb Conc 32.6 g/gl (32-36); Mean Corpuscular Hgb 29.9 pg (27.0-32.0); Mean Corpuscular Volume 91.5 fL (81-99); Mean Platelet Vol. 10.6 fl (6.2-12.0); Monocyte# 0.89 X10^3/uL; Monocyte% 8.3 % (0-10); Neutrophil # 6.59 X10^3/uL (2.7-7.7); Platelet Count 203 K/mm3 (150-450); RBC Distribution Width CV 14.3 % (11.6-14.6); RBC Distribution Width SD 47.5 fl (35.1-43.9); Red Blood Count 4.12 M/mm3 (4.2-5.4); White Blood Count 10.8 K/mm3 (4.4-11.0)
[2018-03-19 23:37] LABS: POSITIVE COUNT NO; POSITIVE DIFFERENTIAL NO; POSITIVE MORPHOLOGY NO
[2018-03-19 23:37] LABS: Bacteria 0 SEEN /hpf (None Seen); Mucous, Urine 0 SEEN /hpf (<or=2+); White Blood Cells 0 SEEN /hpf (0-5)
[2018-03-19 23:42] LABS: Color, Urine Yellow (Yellow); Glucose, Dipstick 1000 mg/dl (Normal); Ketone-Dipstick Negative (Negative); Leukocyte Esterase-Dipstick Negative /ul (Negative); Nitrite-Dipstick Negative (Negative); Occult Blood-Urine 250 /ul (Negative); Protein-Dipstick 30 mg/dl (Negative); Specific Gravity, Urine 1.015 (1.002-1.030); Urine Bilirubin Dipstick Negative (Negative); Urine Clarity Sl. Cloudy (Clear); Urine Urobilinogen Normal (Normal); Urine pH 6.5 (5.0 - 8.0)
[2018-03-19 23:48] LABS: Anion Gap 8 (5-15); BUN 10 mg/dL (7-18); BUN/Creat Ratio 10.7 RATIO (10-20); Calcium,Total 9.2 mg/dL (8.5-10.1); Chloride 102 mmol/L (98-107); Creatinine, Serum 0.94 mg/dL (0.55-1.02); EST Glomerular Filtration Rate 72 mL/min (>60); Est Glom Filt Rate - Afr Amer 87 mL/min (>60); Estimated Creatinine Clearance 65.44 ml/min; Glucose 196 mg/dL (74-106); Potassium 3.8 mmol/L (3.5-5.1); Sodium Level 137 mmol/L (136-145)
[2018-03-19 23:49] LABS: D-Dimer Quantitative (DVT/PE) 0.55 FEU/ug/m (0.27-0.49)
[2018-03-19 23:51] LABS: Red Blood Cells-Urine 50-100 SEEN /hpf (0-5); Squamous Epithelial Cells - UA 0-5 SEEN /hpf (5-10)
[2018-03-20] LABS: Pregnancy, Serum, hCG Quali. NEGATIVE Negative (0-9 Nonpreg)
--- NOTE | 2018-03-20 00:15 | CT_ITS ---
STUDY: CTA CHEST REASON FOR EXAM: Female, 37 years old. Elevated d-dimer RADIATION DOSAGE (If Supplied By Facility): CTDIvol = ( 9.73 ) mGy, DLP = ( 654.79 ) mGycm TECHNIQUE: The examination was performed with the intravenous administration of 100ml ml of Isovue 300 contrast material. Post-processing of the angiographic images was performed, with multiplanar reformation and 3D reconstruction. Individualized dose optimization techniques were used for this CT. COMPARISON: None. FINDINGS: : TRACHEA, THYROID, ESOPHAGUS: No tracheomalacia,stricture or wall thickening. Thyroid and esophagus are normal CARDIOVASCULAR SYSTEM:The thoracic aorta is normal with no aneurysm, dissection or developmental anomalies. The pulmonary trunk and the left and right pulmonary arteries and their lobar and segmental branches do not show any abnormal and persistent filling defects in them. There is therefore no evidence of pulmonary embolism. The heart is normal. There are no venous anomalies TIMBO AND LYMPH NODES: No hilar masses and no mediastinal, hilar, axillary or supraclavicular adenopathy LUNGS, LOW-ATTENUATION: No traction bronchiectasis, honeycombing,emphysema, lung cysts or cavitations LUNGS, HIGH ATTENUATION: No nodules/masses, ground glass opacities/consolidations or increased interstitial markings LUNGS, MOSAIC/CRAZY PAVING: Not evident PLEURA AND CHEST WALL: No plural effusions, pneumothoraces,rib fractures or any osteolytic/osteoblastic changes . The soft tissue chest wall including the breasts are normal UPPER ABDOMEN: Fatty infiltration of the liver CT/CTA Chest W/WO Contrast IMPRESSION: Normal CTA chest examination, without a demonstrated pulmonary embolism or arterial dissection. No acute findings in the lungs. Fatty infiltration of the liver Electronically Signed: Dylan Quintana MD at 1:51 EDT Tel , Service support ,
--- NOTE | 2018-03-20 01:55 | ED.DEP ---
ED Disposition - Plan for ED Patient: Chief Complaint: Abd Pain Instructions: ED Abdominal Pain Unkn Cause Prescriptions: Ondansetron [Zofran Odt] 4 mg PO Q8H PRN PRN #10 tablet PRN Reason: Nausea Referrals: Will Shukla MD [Primary Care Provider] -
--- NOTE | 2018-03-20 01:58 | ED.DEP ---
ED Disposition - Plan for ED Patient: Chief Complaint: Abd Pain Instructions: ED Abdominal Pain Unkn Cause Prescriptions: Ondansetron [Zofran Odt] 4 mg PO Q8H PRN PRN #10 tablet PRN Reason: Nausea Referrals: Will Shukla MD [Primary Care Provider] - Herbert Reza MD [STAFF PHYSICIAN] -
[2018-03-20 02:13] VITALS: BP 119/83; PULSE 89; RESP 12; O2SAT 98
--- NOTE | 2018-03-20 02:15 | ED.RN ---
PT GIVEN WRITTEN AND VERBAL DISCHARGE INSTRUCTIONS AND HOME GOING PRESCRIPTIONS. PT VERBALIZES UNDERSTANDING. PT IV D/C AND COVERED WITH 2X2 GAUZE DRESSING AND PAPER TAPE. PT DRESSES SELF AND AMBULATES OUT OF DEPT WITH COUSIN.
== END 2018-03-20 02:18 | disposition home or self-care (01) ==
LOC: ED 22:58
PROVIDERS: Emergency Provider Emergency Medicine; Family Provider Family Medicine; PCP Family Medicine
DX: R10.9 Unspecified abdominal pain (principal); R07.89 Other chest pain; N13.30 Unspecified hydronephrosis; R05 Cough; E11.9 Type 2 diabetes mellitus without complications; N32.3 Diverticulum of bladder; F32.9 Major depressive disorder, single episode, unspecified; Q05.9 Spina bifida, unspecified
CPT/HCPCS: 71045; 71275; 74176; 80048; 81001; 84484; 84703; 85025; 85379; 93005; 96361; 96374; 96375; 99283; J7030; Q9967; A4216; J2405

== ENCOUNTER 2018-03-22 22:58 | Emergency (ER) | payer MEDICARE, MEDICAID, SELFPAY ==
[2018-03-22 23:00] VITALS: BP 127/79; PULSE 73; RESP 18; TEMP 35.6; O2SAT 95; BMI 43.0
--- NOTE | 2018-03-22 23:15 | RAD_ITS ---
STUDY: X-RAY - LEFT KNEE REASON FOR EXAM: Female, 37 years old. Twisting injury, knee pain. TECHNIQUE: 4 view(s) of the knee. COMPARISON: None. FINDINGS: Normal visualized distal femur. Normal visualized proximal tibia and fibula. Normal proximal tibiofibular articulation. Normal medial femorotibial compartment. Normal lateral femorotibial compartment. Normal patellofemoral articulation. The soft tissue structures are unremarkable. RAD/Knee 4 or More Views IMPRESSION: Normal x-ray examination of the knee. Electronically Signed: Jessie Patel MD at 23:32 EDT Tel , Service support ,
[2018-03-22 23:28] VITALS: BP 118/64; PULSE 74; RESP 18; O2SAT 98
--- NOTE | 2018-03-22 23:40 | ED.VISSUMM ---
- ER Visit Summary Date of Service: 03/22/18 Chief Complaint: Left knee pain History of Present Illness: The patient is a 37 F presenting with left knee pain. Patient states she was walking up the steps and twisted her left knee. She did not hit her head or lose consciousness. She complains of left knee pain. Denies other injuries. Physical Examination: Vitals are stable. Patient is afebrile. Alert no acute distress. HEENT exam is unremarkable. Lungs are clear and equal bilaterally. Heart is regular rate and rhythm. Extremities left anterior knee tenderness, painful range of motion Skin is warm and dry. No focal neurologic deficit. Remainder of exam is unremarkable. Emergency Department Course and Treatment: Left knee x-ray shows no acute process. Ice pack was applied. She was given OxyIR x1 and a prescription for Naprosyn. She is advised to follow-up with her primary care physician. Advised return to ED for worsening complaints. Disposition: Discharge home Impression: Left knee sprain This note was generated with [employer] dictation software. It may contain incorrect words, spelling, and punctuation that were not noted in review of the chart prior to signing ED Disposition - Plan for ED Patient: Chief Complaint: Lower Extremity Injury Instructions: ED Sprain Knee Prescriptions: Naproxen [Naprosyn] 500 mg PO BID PRN #20 tablet Referrals: Will Shukla MD [Primary Care Provider] -
[2018-03-23 00:15] VITALS: BP 135/78; PULSE 68; RESP 16; O2SAT 96
[2018-03-23] MEDS: oxyCODONE 5 MG Tablet PO (00:16)
== END 2018-03-23 00:19 | disposition home or self-care (01) ==
LOC: ED 23:19
PROVIDERS: Emergency Provider Emergency Medicine; Family Provider Family Medicine; PCP Family Medicine
DX: S83.92XA Sprain of unspecified site of left knee, initial encounter (principal); X50.1XXA Overexertion from prolonged static or awkward postures, initial encounter; Y93.01 Activity, walking, marching and hiking; Y92.9 Unspecified place or not applicable; Y99.9 Unspecified external cause status; Q05.9 Spina bifida, unspecified
CPT/HCPCS: 73564; 99283

== ENCOUNTER → 2018-03-23 07:01 | Outpatient (CLI) | payer MEDICARE, MEDICAID, SELFPAY ==
--- NOTE | 2018-03-23 07:12 | MRI_ITS ---
STUDY: MRI LUMBAR SPINE WITH AND WITHOUT CONTRAST REASON FOR EXAM: Female, 37 years old. Spinal stenosis. History of spina bifida and prior surgeries with fatty tumor removed. TECHNIQUE: Standardized fat and water weighted pulse sequences were obtained in the sagittal and axial planes. 10 ml of Gadavist contrast material was administered for the contrast portion of the examination. COMPARISON: 04/05/2016. FINDINGS: T12-L1: Normal endplates. Disc dehydration. There is a mild spondylotic bar on the right, causing mild cord flattening. Normal bilateral facet joints. Normal central canal and bilateral lateral recesses. Normal bilateral intervertebral neural foramina. Normal lumbar lordosis. There is no substantial scoliosis. 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 There is evidence of spina bifida at the L4-5 and L5-S1 levels, with a residual or recurrent lipoma at the site of the defect at the L5 level measuring 2.1 x 2.1 x 0.9 cm. There is no significant change compared to the prior study. L1-2: Normal endplates. Normal disc height, hydration and morphology. Normal bilateral facet joints. Normal central canal and bilateral lateral recesses. Normal bilateral intervertebral neural foramina. L2-3: Normal endplates. Normal disc height, hydration and morphology. Normal bilateral facet joints. Normal central canal and bilateral lateral recesses. Normal bilateral intervertebral neural foramina. L3-4: Normal endplates. Normal disc height, hydration and morphology. Normal bilateral facet joints. Normal central canal and bilateral lateral recesses. Normal bilateral intervertebral neural foramina. L4-5: Normal endplates. Normal disc height, hydration and morphology. Normal bilateral facet joints. Normal central canal and bilateral lateral recesses. Normal bilateral intervertebral neural foramina. Spina bifida. L5-S1: Normal endplates. Normal disc height, hydration and morphology. Normal bilateral facet joints. Normal central canal and bilateral lateral recesses. Normal bilateral intervertebral neural foramina. Spina bifida. There is no enhancing lesion. Normal visualized sacral ala. Normal visualized paraspinous soft tissue structures. MRI/Spine Lumbar W/WO Contrast IMPRESSION: 1. 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 No change from prior. 2. Spina bifida at L4-5 and L5-S1, with residual or recurrent 2 cm lipoma at the L5 level in the posterior bony defect. No change from prior. Electronically Signed: Jessie Patel MD at 17:27 EDT Tel , Service support ,
== END ==
PROVIDERS: Family Provider Family Medicine; PCP Family Medicine; Referring Provider Clinical Nurse Specialist Acute Care; Visit Provider Clinical Nurse Specialist Acute Care
DX: M48.00 Spinal stenosis, site unspecified (principal); Q05.9 Spina bifida, unspecified; G62.9 Polyneuropathy, unspecified
CPT/HCPCS: 72158; A9585; A4216

== ENCOUNTER 2018-04-09 12:36 | Emergency (ER) | payer MEDICARE, MEDICAID, SELFPAY ==
[2018-04-09 12:37] VITALS: BP 161/73; PULSE 83; RESP 17; TEMP 36.1; O2SAT 98; BMI 42.7
--- NOTE | 2018-04-09 13:04 | CT_ITS ---
STUDY: CT ABDOMEN AND PELVIS WITH CONTRAST REASON FOR EXAM: Female, 37 years old. Abdominal pain. Nausea and vomiting. Nasogastric tube is in situ. RADIATION DOSAGE (If Supplied By Facility): CTDIvol = ( 14.70 ) mGy, DLP = ( 1202.90 ) mGycm TECHNIQUE: Transaxial images were obtained from the dome of the diaphragm to the symphysis pubis without oral contrast. 100 ml of Isovue 300 contrast was administered. Sagittal and coronal images were reconstructed. Individualized dose optimization techniques were used for this CT. COMPARISON: Comparison is made with prior study dated March 19, 2018. FINDINGS: A nasogastric tube is seen with the tip in the body of the stomach. Focal pleural plaque calcification along the posterior medial aspect of the right lower lobe. The visualized portions of the heart are within normal limits. There is decreased attenuation of the liver consistent with steatosis. The gallbladder is not visualized most likely secondary to prior cholecystectomy. Normal spleen. Normal pancreas. Normal bilateral adrenal glands. Moderate degree of right-sided hydronephrosis and right hydroureter down to the ureterovesical junction.. Cortical thinning of the superior aspect of the right kidney. Normal left kidney. Normal visualized stomach. Normal small intestine. Normal colon. The appendix is visualized and appears normal. Normal abdominal aorta. Normal inferior vena cava. There is borderline retroperitoneal lymphadenopathy with enlarged nodes no greater than 10mm in the short axis diameter. Diffuse bladder wall thickening. The uterus is tilted towards the right side of midline. 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 Once again, there is evidence of ventral hernia repair with a mesh. Prior laminectomy at the L3-L4 L4-L5 and L5-S1 levels. CT/Abdomen/Pelvis W IV Cont ONLY IMPRESSION: Stable right hydronephrosis and right hydroureter down to the urinary bladder. Diffuse bladder wall thickening of the urinary bladder. Fatty infiltration of the liver. Electronically Signed: Stephan Sood MD at 14:44 EST Tel [phone], Service support ,
--- NOTE | 2018-04-09 13:05 | RAD_ITS ---
STUDY: X-RAY - ABDOMEN/PELVIS REASON FOR EXAM: Female, 37 years old. Nasogastric tube placement. TECHNIQUE: Single AP view of the abdomen / pelvis. COMPARISON: None. FINDINGS: Normal visualized lung bases. The tip of the nasogastric tube is in the fundal portion of the stomach. There is a moderate amount of colonic fecal material. There is a 6.6 mm calcification overlying the lower pole calyx of the left kidney. There is evidence of prior ventral hernia repair. Normal soft tissue structures. Spina bifida of the lower lumbar spine. RAD/Abdomen Single View (Portable) IMPRESSION: The tip of the nasogastric tube is seen within the fundal portion of the stomach. Electronically Signed: Stephan Sood MD at 14:01 EST Tel [phone], Service support ,
[2018-04-09 13:12] VITALS: BP 152/80; PULSE 80; RESP 14; O2SAT 98
[2018-04-09 13:20] LABS: Absolute Lymphocyte Count 2.14 X10^3/ul (0.83-4.51); Absolute Neutrophil Count 5.7 X10^3/uL (2.0-7.7); Basophil# 0.05 X10^3/uL; Basophil% 0.5 % (0-1); Eosinophil# 0.36 X10^3/uL; Eosinophils% 3.9 % (0-5); Hematocrit 40.1 % (37-47); Hemoglobin 13.1 g/dl (12.0-15.0); Lymphocyte # 2.14 X10^3/ul (4.0); Lymphocyte % 23.2 % (19-41); Mean Corp Hgb Conc 32.7 g/gl (32-36); Mean Corpuscular Hgb 30.4 pg (27.0-32.0); Mean Platelet Vol. 10.9 fl (6.2-12.0); Monocyte# 0.94 X10^3/uL; Monocyte% 10.2 % (0-10); Neutrophil % 61.8 % (47-70); POSITIVE COUNT NO; POSITIVE DIFFERENTIAL NO; POSITIVE MORPHOLOGY NO; Platelet Count 178 K/mm3 (150-450); RBC Distribution Width CV 13.8 % (11.6-14.6); Red Blood Count 4.31 M/mm3 (4.2-5.4); White Blood Count 9.2 K/mm3 (4.4-11.0)
[2018-04-09 13:34] LABS: ALB/GLOB Ratio 0.9 RATIO (0.9-2.4); AST(SGOT) 47 U/L (15-37); Alanine Aminotransfer ALT/SGPT 64 U/L (13-56); Albumin, Serum 3.7 g/dL (3.2-5.0); Alkaline Phosphatase 78 U/L (45-117); Anion Gap 10 (5-15); BUN 9 mg/dL (7-18); BUN/Creat Ratio 9.5 RATIO (10-20); Calcium,Total 8.8 mg/dL (8.5-10.1); Chloride 104 mmol/L (98-107); Creatinine, Serum 0.95 mg/dL (0.55-1.02); EST Glomerular Filtration Rate 71 mL/min (>60); Est Glom Filt Rate - Afr Amer 86 mL/min (>60); Estimated Creatinine Clearance 64.75 ml/min; Globulin 4.3 g/dL (2.2-4.2); Glucose 182 mg/dL (74-106); Lipase 134 U/L (73-393); Potassium 3.7 mmol/L (3.5-5.1); Sodium Level 140 mmol/L (136-145)
[2018-04-09 13:41] LABS: Bacteria 0 SEEN /hpf (None Seen); Mucous, Urine 0 SEEN /hpf (<or=2+); Red Blood Cells-Urine 0 SEEN /hpf (0-5); White Blood Cells 0 SEEN /hpf (0-5)
[2018-04-09 13:43] LABS: Color, Urine Yellow (Yellow); Glucose, Dipstick 250 mg/dl (Normal); Ketone-Dipstick Negative (Negative); Leukocyte Esterase-Dipstick Negative /ul (Negative); Nitrite-Dipstick Negative (Negative); Occult Blood-Urine Negative /ul (Negative); Protein-Dipstick 30 mg/dl (Negative); Urine Bilirubin Dipstick Negative (Negative); Urine Clarity Sl. Cloudy (Clear); Urine Urobilinogen 1 mg/dl (Normal)
[2018-04-09 13:49] LABS: Pregnancy, Serum, hCG Quali. NEGATIVE Negative (0-9 Nonpreg)
[2018-04-09 13:50] LABS: Squamous Epithelial Cells - UA 0-5 SEEN /hpf (5-10)
[2018-04-09] MEDS: Ondansetron 4 MG/2 ML Vial IV (14:15)
[2018-04-09] MEDS: Morphine 4 MG/ML Syringe IV (14:15)
--- NOTE | 2018-04-09 15:29 | ED.VISSUMM ---
- ER Visit Summary Date of Service: 04/09/18 Chief Complaint: Abdominal pain, nausea, vomiting History of Present Illness: The patient is a 37 F presenting with abdominal pain, nausea, vomiting. She states this started yesterday. She saw her primary care physician last week. She states today she had dark colored emesis with blood. This is what concerned her so she presented to the emergency department. She has a history of neurogenic bladder and neurogenic bowels. She self caths for urine. She has a tube that she inserts into her umbilicus for bowel irrigation. She states she has been unable to do this for the past 3 weeks. She denies fever. Denies other complaints. Physical Examination: Vitals are stable. Patient is afebrile. Alert no acute distress. HEENT exam is unremarkable. Neck is supple. Lungs are clear and equal bilaterally. Heart is regular rate and rhythm. Abdomen is soft diffuse tenderness with no rebound or guarding Extremities are unremarkable. Skin is warm and dry. Remainder of exam is unremarkable. Emergency Department Course and Treatment: Patient given morphine, Zofran IV. CBC, chemistries unremarkable other than glucose 182. ALT 64, AST 47. Lipase 134. Urinalysis shows glucose. HCG negative. NG tube shows clear drainage. Stool is guaiac negative. CT abdomen pelvis shows stable right hydronephrosis and right hydroureter down to the urinary bladder. Diffuse bladder wall thickening of the urinary bladder. Fatty infiltration of the liver. Findings were discussed with the patient. She is resting comfortably on reevaluation. She is advised to follow-up with her surgeon at [facility] as well as her primary care physician. Advised return to ED if worsening complaints. Disposition: Discharge home Impression: Abdominal pain This note was generated with [employer] dictation software. It may contain incorrect words, spelling, and punctuation that were not noted in review of the chart prior to signing ED Disposition - Plan for ED Patient: Chief Complaint: Abd Pain Referrals: Will Shukla MD [Primary Care Provider] -
--- NOTE | 2018-04-09 15:35 | ED.DCSUM_ITS ---
- ER Visit Summary Date of Service: 04/09/18 Chief Complaint: Abdominal pain, nausea, vomiting History of Present Illness: The patient is a 37 F presenting with abdominal pain, nausea, vomiting. She states this started yesterday. She saw her primary care physician last week. She states today she had dark colored emesis with blood. This is what concerned her so she presented to the emergency department. She has a history of neurogenic bladder and neurogenic bowels. She self caths for urine. She has a tube that she inserts into her umbilicus for bowel irrigation. She states she has been unable to do this for the past 3 weeks. She denies fever. Denies other complaints. Physical Examination: Vitals are stable. Patient is afebrile. Alert no acute distress. HEENT exam is unremarkable. Neck is supple. Lungs are clear and equal bilaterally. Heart is regular rate and rhythm. Abdomen is soft diffuse tenderness with no rebound or guarding Extremities are unremarkable. Skin is warm and dry. Remainder of exam is unremarkable. Emergency Department Course and Treatment: Patient given morphine, Zofran IV. CBC, chemistries unremarkable other than glucose 182. ALT 64, AST 47. Lipase 134. Urinalysis shows glucose. HCG negative. NG tube shows clear drainage. Stool is guaiac negative. CT abdomen pelvis shows stable right hydronephrosis and right hydroureter down to the urinary bladder. Diffuse bladder wall thickening of the urinary bladder. Fatty infiltration of the liver. Findings were discussed with the patient. She is resting comfortably on reevaluation. She is advised to follow-up with her surgeon at [facility] as well as her primary care physician. Advised return to ED if worsening complaints. Disposition: Discharge home Impression: Abdominal pain This note was generated with [employer] dictation software. It may contain incorrect words, spelling, and punctuation that were not noted in review of the chart prior to signing ED Disposition - Plan for ED Patient: Chief Complaint: Abd Pain Referrals: Will Shukla MD [Primary Care Provider] -
--- NOTE | 2018-04-09 15:38 | ED.DEP ---
ED Disposition - Plan for ED Patient: Chief Complaint: Abd Pain Instructions: ED Abdominal Pain Unkn Cause Referrals: Will Shukla MD [Primary Care Provider] -
[2018-04-09 15:45] VITALS: BP 150/75; PULSE 82; RESP 14; RESP 15; O2SAT 97
[2018-04-09] MEDS: morphine 8 MG/ML Syringe 6 MG IV (15:53)
== END 2018-04-09 15:58 | disposition home or self-care (01) ==
LOC: ED 13:44
PROVIDERS: Emergency Provider Emergency Medicine; Family Provider Family Medicine; PCP Family Medicine
DX: R10.9 Unspecified abdominal pain (principal); R11.2 Nausea with vomiting, unspecified; K76.0 Fatty (change of) liver, not elsewhere classified; N13.30 Unspecified hydronephrosis; N31.9 Neuromuscular dysfunction of bladder, unspecified
CPT/HCPCS: 74018; 74177; 80053; 81001; 82274; 83690; 84703; 85025; 96374; 96375; 96376; 99285; J7030; J7040; Q9967; A4216; J2405

== ENCOUNTER 2018-04-11 13:30 | Observation (INO) | payer MEDICARE, MEDICAID, SELFPAY ==
[2018-04-11 13:32] VITALS: BP 134/87; PULSE 95; RESP 17; TEMP 36.7; O2SAT 98; BMI 43.2
[2018-04-11 14:16] LABS: Absolute Lymphocyte Count 1.43 X10^3/ul (0.83-4.51); Absolute Neutrophil Count 6.6 X10^3/uL (2.0-7.7); Basophil# 0.06 X10^3/uL; Basophil% 0.6 % (0-1); Eosinophil# 0.74 X10^3/uL; Eosinophils% 7.6 % (0-5); Hematocrit 39.9 % (37-47); Hemoglobin 13.1 g/dl (12.0-15.0); Lymphocyte # 1.43 X10^3/ul (4.0); Lymphocyte % 14.6 % (19-41); Mean Corp Hgb Conc 32.8 g/gl (32-36); Mean Corpuscular Hgb 30.4 pg (27.0-32.0); Mean Corpuscular Volume 92.6 fL (81-99); Mean Platelet Vol. 11.4 fl (6.2-12.0); Monocyte# 0.89 X10^3/uL; Monocyte% 9.1 % (0-10); Neutrophil # 6.59 X10^3/uL (2.7-7.7); Neutrophil % 67.4 % (47-70); Platelet Count 179 K/mm3 (150-450); RBC Distribution Width CV 13.5 % (11.6-14.6); Red Blood Count 4.31 M/mm3 (4.2-5.4); White Blood Count 9.8 K/mm3 (4.4-11.0)
[2018-04-11 14:22] LABS: POSITIVE COUNT NO; POSITIVE DIFFERENTIAL NO; POSITIVE MORPHOLOGY NO
[2018-04-11 14:25] LABS: Anion Gap 11 (5-15); BUN 10 mg/dL (7-18); BUN/Creat Ratio 9.4 RATIO (10-20); Calcium,Total 9.2 mg/dL (8.5-10.1); Chloride 101 mmol/L (98-107); Creatinine, Serum 1.06 mg/dL (0.55-1.02); EST Glomerular Filtration Rate 62 mL/min (>60); Est Glom Filt Rate - Afr Amer 75 mL/min (>60); Estimated Creatinine Clearance 58.03 ml/min; Glucose 292 mg/dL (74-106); Potassium 3.7 mmol/L (3.5-5.1); Sodium Level 139 mmol/L (136-145)
[2018-04-11 14:55] LABS: Pregnancy, Serum, hCG Quali. NEGATIVE Negative (0-9 Nonpreg)
[2018-04-11 15:11] LABS: Mucous, Urine 0 SEEN /hpf (<or=2+)
[2018-04-11 15:19] LABS: Color, Urine Yellow (Yellow); Glucose, Dipstick 1000 mg/dl (Normal); Ketone-Dipstick Negative (Negative); Leukocyte Esterase-Dipstick Negative /ul (Negative); Nitrite-Dipstick Negative (Negative); Occult Blood-Urine 10 /ul (Negative); Protein-Dipstick Negative (Negative); Specific Gravity, Urine 1.005 (1.002-1.030); Urine Bilirubin Dipstick Negative (Negative); Urine Clarity Clear (Clear); Urine Urobilinogen Normal (Normal)
[2018-04-11 15:34] LABS: Bacteria RARE /hpf (None Seen); Red Blood Cells-Urine 0-5 SEEN /hpf (0-5); Squamous Epithelial Cells - UA 0-5 SEEN /hpf (5-10); White Blood Cells 0-5 SEEN /hpf (0-5)
--- NOTE | 2018-04-11 15:38 | ED.DCSUM_ITS ---
- ER Visit Summary Date of Service: 04/11/18 Chief Complaint: Abdominal pain History of Present Illness: The patient is a 37 F who presents for 2 days of abdominal pain. Patient has history of spina bifida with neurogenic bladder and neurogenic bowel. She has a stoma in her umbilicus so she can irrigate her bowels. Patient states stoma hasnot been working well since her hernia surgery in November. Patient was seen 2 days ago for the same complaints. She had a workup that was unremarkable and was sent home with her pain and nausea improved at time of discharge. Yesterday she began having return of diffuse abdominal pain that is constantly aching with sharp stabbing intermittent pains followed by v omiting. With vomiting she has urinary incontinence. She also describes the vomitus as dark brown and concerning for intestinal contents. She denies diarrhea, no bowel movement for 3 weeks, and no flatus. She has tried enemas without result. Patient denies fever or other complaints at this time. Physical Examination: Vital signs: afebrile, hemodynamically stable, no hypoxia on room air General: well nourished, well developed, in no distress Skin: warm, dry, no rash, no pallor HEENT: normocephalic and atraumatic; PERRL, EOMI, moist mucous membranes Cardiovascular: regular rate and rhythm without murmurs, no peripheral edema, 2+ pulses all distal extremities Respiratory: No increased work of breathing, lungs are clear to auscultation bilaterally, no rales, rhonchi or wheezing Abdominal: Abdomen is soft, diffusely tender with hypoactive bowel sounds, no guarding or rebound, no masses MSK: Moves all extremities, no deformities, normal strength Neuro: Awake and alert, oriented ?4. No facial droop, sensation and motor function intact and symmetric Test Results: Abnormal Lab Results 04/11/18 04/11/18 04/11/18 13:45 13:45 13:45 WBC 9.8 RBC 4.31 Hgb 13.1 Hct 39.9 MCV 92.6 MCH 30.4 MCHC 32.8 RDW 13.5 RDW Differential 45.0 H Plt Count 179 MPV 11.4 Immature Gran % (Auto) 0.700 Neut % (Auto) 67.4 Lymph % (Auto) 14.6 L [place] % (Auto) 9.1 Eos % (Auto) 7.6 H Baso % (Auto) 0.6 Absolute Neuts (auto) 6.6 Absolute Lymphs (auto) 1.43 Total Counted Not Reportable Sodium 139 Potassium 3.7 Chloride 101 Carbon Dioxide 27.0 Anion Gap 11 BUN 10 Creatinine 1.06 H Estim Creat Clear Calc 58.03 Est GFR (MDRD) Af Amer 75 Est GFR (MDRD) Non-Af 62 BUN/Creatinine Ratio 9.4 L Glucose 292 H Calcium 9.2 Serum , Qual NEGATIVE Urine Color Urine Clarity Urine pH Ur Specific [place] Urine Protein Urine Glucose (UA) Urine Ketones Urine Occult Blood Urine Nitrite Urine Bilirubin Urine Urobilinogen Ur Leukocyte Esterase Urine RBC Urine WBC Ur Squamous Epith Cells Urine Bacteria Urine Mucus 04/11/18 15:05 WBC RBC Hgb Hct MCV MCH MCHC RDW RDW Differential Plt Count MPV Immature Gran % (Auto) Neut % (Auto) Lymph % (Auto) [place] % (Auto) Eos % (Auto) Baso % (Auto) Absolute Neuts (auto) Absolute Lymphs (auto) Total Counted Sodium Potassium Chloride Carbon Dioxide Anion Gap BUN Creatinine Estim Creat Clear Calc Est GFR (MDRD) Af Amer Est GFR (MDRD) Non-Af BUN/Creatinine Ratio Glucose Calcium Serum , Qual Urine Color Yellow Urine Clarity Clear Urine pH 7.0 Ur Specific [place] 1.005 Urine Protein Negative Urine Glucose (UA) 1000 H Urine Ketones Negative Urine Occult Blood 10 H Urine Nitrite Negative Urine Bilirubin Negative Urine Urobilinogen Normal Ur Leukocyte Esterase Negative Urine RBC 0-5 SEEN Urine WBC 0-5 SEEN Ur Squamous Epith Cells 0-5 SEEN Urine Bacteria RARE Urine Mucus 0 SEEN Medications Given Discontinued Medications Sodium Chloride () 1,000 mls @ 999 mls/hr IV .Q1H1M ONE Stop: 04/11/18 16:35 Last Admin: 04/11/18 16:19 Dose: 999 mls/hr Ketorolac Tromethamine (Toradol) 15 mg IV X1 ONE Stop: 04/11/18 15:36 Last Admin: 04/11/18 16:21 Dose: 15 mg Ondansetron HCl (Zofran) 4 mg IV X1 ONE Stop: 04/11/18 15:36 Last Admin: 04/11/18 16:20 Dose: 4 mg Emergency Department Course and Treatment: This is patient's second visit in 3 days for inability to have a bowel movement, with abdominal pain and vomiting. Patient states she last vomited since coming to the emergency department and it is been dark brown and feculent. I did not actually see any of her vomitus or smell any feculent breath. However patient states she has been having this issue since she has been unable to have a bowel movement. Rectal exam did show soft stool palpable in the proximal rectum but no stool to disimpact to both. Patient had a CT scan 2 days ago, and thus it was not repeated. A KUB that showed large amount of stool in the colon. Labs showed no leukocytosis, electrolyte abnormalities, renal dysfunction, and urinalysis was negative for infection. Patient received IV fluids, Zofran and Toradol for symptomatic relief. She did have mild improvement in her pain and nausea. She was able to move around without exacerbation of symptoms. Because patient does have a history of neurogenic bowel and has not had a bowel movement for 3 weeks, she would benefit from a bowel cleanout in the hospital setting. Patient was discussed with Dr. Chung for admission observation status. Treatment Plan: [] Disposition: [] Impression: obstipation, neurogenic bowel, spina bifida This note was generated with [employer] dictation software. It may contain incorrect words, spelling, and punctuation that were not noted in review of the chart prior to signing ED Disposition - Plan for ED Patient: Chief Complaint: Abd Pain Referrals: Will Shukla MD [Primary Care Provider] -
--- NOTE | 2018-04-11 15:45 | RAD_ITS ---
STUDY: X-RAY - ABDOMEN/PELVIS REASON FOR EXAM: Female, 37 years old. Abdominal pain, nausea and vomiting since Monday with no bowel movement for 3 weeks. Emesis blackboard arc brown. TECHNIQUE: AP upright and supine abdomen and pelvis. COMPARISON: None. FINDINGS: Normal bowel pattern. Moderate distributed stool burden, not excessive, inconsistent with constipation. Normal small bowel pattern. No evidence of obstruction. No free air. Grossly normal size and position of the solid organs of the abdomen. Mild scoliosis. Evidence of prior mesh hernia repair. RAD/Abd Inc Decub and/or Erect IMPRESSION: Unremarkable bowel pattern. There is no evidence of constipation. The quantity of stool distributed throughout the large bowel is moderate. There is no evidence of bowel obstruction. Electronically Signed: Severino Aguilar, at 16:54 EST Tel , Service support ,
[2018-04-11] MEDS: 0.9% Normal Saline 1,000 ML 999 ML IV (16:19)
[2018-04-11] MEDS: Ondansetron 4 MG/2 ML Vial IV (16:20)
[2018-04-11] MEDS: Ketorolac 15 MG/ML Vial IV (16:21)
[2018-04-11 16:25] VITALS: BP 127/71; PULSE 79; RESP 14; O2SAT 97
--- NOTE | 2018-04-11 17:06 | PCM.HP.STD ---
<Megan Clark - Last Filed: 04/11/18 17:54> Problem List (1) Neurogenic bowel Status: Chronic (2) Neurogenic bladder Status: Chronic (3) Chronic back pain Status: Chronic (4) History of migraine Status: Chronic (5) Depression Status: Chronic (6) Spina bifida aperta of lumbar spine Status: Chronic Comment: s/p surgery x 2 weakness and numbness in legs neurogenic bladder and frequent UTIs (7) Non-compliance Status: Chronic (8) Morbid obesity with BMI of 40.0-44.9, adult Status: Chronic (9) Diabetes mellitus, type II Status: Chronic (10) UTI (urinary tract infection) Status: Resolved (11) Nausea and vomiting Status: Acute (12) Hydronephrosis of right kidney Status: Chronic Comment: Consult dictated, For now Treat UTI and make sure pt does self cath. Will follow, no need yet for cysto retros etc. But this may change in future 13 Sept Re-admitted consult dictated History of Present Illness Date of Admission: 04/11/18 Chief Complaint: Abdominal pain, constipation, nausea, vomiting. The patient is a 37 year old F who presents to the emergency room due to abdominal pain, constipation, nausea and vomiting. Patient states her abdominal pain began Monday. She was seen in the ER 04/09/2018 with the same symptoms. CT of the abdomen and pelvis was completed at that time which showed a stable right hydronephrosis and right hydroureter, diffuse bladder wall thickening and fatty infiltration of the liver. She has a past medical history of migraines, spina bifida with chronic bilateral lower extremity weakness and neurogenic bladder/neurogenic bowel with frequent UTIs, chronic back pain, anxiety, depression, type 2 diabetes mellitus, morbid obesity. Patient self caths for urine and irrigates through her umbilicus for bowel irrigation due to neurogenic bowel. Patient reports she has not had a bowel movement in 3 weeks. She states bowel irrigation has not been working properly since her hernia repair surgery in November. She reports frequent emesis which is dark in color. Denies hematemesis. Denies fever, chills. She reports abdominal pain is intermittent and worse prior to episodes of emesis. Pain mostly in the lower abdomen. She denies urinary symptoms. Past Medical History Past Medical History (Chronic Problems): Chronic Problems (Last Reviewed 01/30/18 @ 14:24 by Lauren Rivas) Neurogenic bowel (Chronic) Neurogenic bladder (Chronic) Chronic back pain (Chronic) History of migraine (Chronic) Depression (Chronic) Spina bifida aperta of lumbar spine (Chronic) s/p surgery x 2 weakness and numbness in legs neurogenic bladder and frequent UTIs Non-compliance (Chronic) Morbid obesity with BMI of 40.0-44.9, adult (Chronic) Diabetes mellitus, type II (Chronic) Hydronephrosis of right kidney (Chronic) Consult dictated, For now Treat UTI and make sure pt does self cath. Will follow, no need yet for cysto retros etc. But this may change in future Jan Re-admitted consult dictated Medical History: Medical History (Last Reviewed 01/30/18 @ 14:24 by Lauren Rivas) Neurogenic bowel (Chronic) K59.2 Neurogenic bladder (Chronic) N31.9 Chronic back pain (Chronic) M54.9, G89.29 History of migraine (Chronic) Z86.69 Depression (Chronic) F32.9 Spina bifida aperta of lumbar spine (Chronic) Q05.7 s/p surgery x 2 weakness and numbness in legs neurogenic bladder and frequent UTIs Non-compliance (Chronic) Z91.19 Morbid obesity with BMI of 40.0-44.9, adult (Chronic) E66.01, Z68.41 Diabetes mellitus, type II (Chronic) E11.9 Nausea and vomiting (Acute) R11.2 Hydronephrosis of right kidney (Chronic) N13.30 Consult dictated, For now Treat UTI and make sure pt does self cath. Will follow, no need yet for cysto retros etc. But this may change in future Jan Re-admitted consult dictated UTI (urinary tract infection) (Resolved) N39.0 Allergies mushroom Allergy (Verified 04/11/18 13:31) Anaphylaxis peanut Allergy (Verified 04/11/18 13:31) Anaphylaxis Gadolinium-MRI Contrast Medium Adverse Reaction (Verified 04/11/18 13:31) Vomiting Home Medications: Ambulatory Orders Medication Instructions Recorded Duloxetine Hcl [Cymbalta] 60 mg PO DAILY 10/06/15 Metformin(XR) [Glucophage Xr] 1,000 mg PO BID 06/19/16 Propranolol HCl 10 mg PO DAILY 07/18/17 Atorvastatin Calcium [Lipitor] 10 mg PO QHS 11/07/17 Loratadine 10 mg PO DAILY 01/21/18 Pseudoephedrine HCl [Sudogest] 30 mg PO Q6H PRN PRN 01/21/18 Pregabalin [Lyrica] 75 mg PO DAILY 02/25/18 Glimepiride [Amaryl] 4 mg PO DAILY 03/03/18 Buspirone HCl 15 mg PO BID 04/11/18 Surgical History: Surgical History (Last Reviewed 01/30/18 @ 14:24 by Lauern Rivas) History of cholecystectomy Z90.49 History of dilation and curettage Z98.890 History of spinal surgery Z98.890 Hx of foot surgery Z98.890 Hx of ventral hernia repair Z98.890, Z87.19 Status post gastric surgery Z98.890 Surgical History: cholecystectomy, - - D&C, lumbar back surgery x2, foot surgery x2, abdominal stoma, ventral hernia repair. Psychiatric History: Anxiety, Depression [employer] History: No pertinent [employer] history Lives: Spouse/ Significant Other Smoking Status: Never smoker Alcohol: None Drugs: None - *Family History Maternal Family History: Family History (Last Reviewed 04/11/18 @ 17:10 by NACHO Maravilla) Mother CVA (cerebral vascular accident) Thyroid disorder Diabetes Hypertension History Items: Cancer, Diabetes, Hypertension, Stroke Paternal Family History: Family History (Last Reviewed 04/11/18 @ 17:10 by NACHO Maravilla) Mother CVA (cerebral vascular accident) Thyroid disorder Diabetes Hypertension History Items: No pertinent history Sibling Family History: Family History (Last Reviewed 04/11/18 @ 17:10 by NACHO Maravilla) Mother CVA (cerebral vascular accident) Thyroid disorder Diabetes Hypertension History Items: No pertinent history Review of Systems Constitutional: Reports: Malaise, Weakness. Denies: Chills, Fever, Weight Change HEENT: Denies: Head Aches, Sinus Congestion, Sinus Drainage Cardiovascular: Reports: Light Headedness. Denies: Chest Pain, Edema, Palpitations, Syncope Respiratory: Denies: Cough, Shortness of breath at rest, Sputum production Gastrointestinal: Reports: Abdominal Pain, Constipation, Nausea, Vomiting. Denies: Diarrhea, Hematemesis, Hematochezia Genitourinary: Reports: Incontinence - With episodes of vomiting.. Denies: Dysuria, Frequency, Urgency Musculoskeletal: Denies: Joint Pain, Joint Tenderness Skin: Denies: Rash, Wounds Neurological: Denies: Numbness, Tingling, Focal weakness Psychiatric: Reports: Anxiety, Depression Hematologic/ Lymphatic: Denies: Easy Bruising, Easy Bleeding VTE Information - Inpt Only VTE Present on Admission: No VTE Mechan Device Prophylaxis: None VTE Pharm Prophylaxis ordered?: Yes - Physical Exam General: Alert, Oriented x3, Cooperative HEENT: Atraumatic, PERRLA, EOMI, Normocephalic Oral: Dry Mucosa Neck: Supple, No JVD, Negative Carotid Bruits Lungs: Clear to auscultation, Normal air movement Cardiovascular: Regular rate, Regular Rhythm, Normal S1, Normal S2, No murmurs Abdomen: Soft, Non-Distended, Hypoactive Bowel Sounds, Obese, Tender - Generalized TTP, - - Umbilical stoma Extremities: No clubbing, No cyanosis, No edema, Capillary Refill Less than 3 Seconds Skin: No rashes, No breakdown Musculoskeletal: No Tenderness to Palpation of Joints or Extremities Neurological: Cranial nerves II-XII grossly intact, Neuro grossly intact Psych/Mental Status: Normal Affect, Appropriate Vital Signs Temp Pulse Resp BP Pulse Ox 98.1 F 79 14 127/71 H 97 04/11/18 13:32 04/11/18 16:25 04/11/18 16:25 04/11/18 16:25 04/11/18 16:25 Oxygen Delivery Method Room Air Weight: 236 lb 12.423 oz Body Mass Index (BMI) 43.2 Finger Stick Blood Glucose 187 Laboratory Tests Past 24 Hrs 04/11/18 04/11/18 04/11/18 13:45 13:45 13:45 WBC 9.8 RBC 4.31 Hgb 13.1 Hct 39.9 MCV 92.6 MCH 30.4 MCHC 32.8 RDW 13.5 RDW Differential 45.0 H Plt Count 179 MPV 11.4 Immature Gran % (Auto) 0.700 Neut % (Auto) 67.4 Lymph % (Auto) 14.6 L [place] % (Auto) 9.1 Eos % (Auto) 7.6 H Baso % (Auto) 0.6 Absolute Neuts (auto) 6.6 Absolute Lymphs (auto) 1.43 Total Counted Not Reportable Sodium 139 Potassium 3.7 Chloride 101 Carbon Dioxide 27.0 Anion Gap 11 BUN 10 Creatinine 1.06 H Estim Creat Clear Calc 58.03 Est GFR (MDRD) Af Amer 75 Est GFR (MDRD) Non-Af 62 BUN/Creatinine Ratio 9.4 L Glucose 292 H Calcium 9.2 Serum , Qual NEGATIVE Urine Color Urine Clarity Urine pH Ur Specific [place] Urine Protein Urine Glucose (UA) Urine Ketones Urine Occult Blood Urine Nitrite Urine Bilirubin Urine Urobilinogen Ur Leukocyte Esterase Urine RBC Urine WBC Ur Squamous Epith Cells Urine Bacteria Urine Mucus 04/11/18 15:05 WBC RBC Hgb Hct MCV MCH MCHC RDW RDW Differential Plt Count MPV Immature Gran % (Auto) Neut % (Auto) Lymph % (Auto) [place] % (Auto) Eos % (Auto) Baso % (Auto) Absolute Neuts (auto) Absolute Lymphs (auto) Total Counted Sodium Potassium Chloride Carbon Dioxide Anion Gap BUN Creatinine Estim Creat Clear Calc Est GFR (MDRD) Af Amer Est GFR (MDRD) Non-Af BUN/Creatinine Ratio Glucose Calcium Serum , Qual Urine Color Yellow Urine Clarity Clear Urine pH 7.0 Ur Specific [place] 1.005 Urine Protein Negative Urine Glucose (UA) 1000 H Urine Ketones Negative Urine Occult Blood 10 H Urine Nitrite Negative Urine Bilirubin Negative Urine Urobilinogen Normal Ur Leukocyte Esterase Negative Urine RBC 0-5 SEEN Urine WBC 0-5 SEEN Ur Squamous Epith Cells 0-5 SEEN Urine Bacteria RARE Urine Mucus 0 SEEN Assessment/Plan All Active Problems (Last Reviewed 01/30/18 @ 14:24 by Lauren Rivas) Nausea and vomiting (Acute) UTI (urinary tract infection) (Resolved) 1. Acute on chronic constipation due to neurogenic bowel from history of spina bifida-Patient irrigates her bowels through stoma in her umbilicus. States she has not had a bowel movement in 3 weeks. Abdominal x-ray on admission shows unremarkable bowel pattern. No evidence of constipation. Quantity of stool distributed throughout the large bowel is moderate. No evidence of bowel obstruction. Zofran as needed for nausea. GoLYTELY for constipation. NPO besides medications. Recommend outpatient follow up with surgeon who completed stoma. IV fluids. PRN pain regimen. 2. History of spina bifida with neurogenic bladder, neurogenic bowel, chronic back pain with lumbar spine surgery x2-self caths at home with history of frequent UTIs. Urinalysis on admission unremarkable. 3. Anxiety/depression-continue home buspirone, duloxetine regimen. 4. History of migraines-continue home regimen. 5. Type 2 diabetes mellitus-hold home metformin regimen. Accu-Cheks before meals at bedtime with sliding scale insulin. 6. Hyperlipidemia-continue statin. 7. Morbid obesity-encourage diet and lifestyle modifications. DVT prophylaxis-SCDs. This patient was seen by NACHO Maravilla under the supervision of Dr. Chung. <Sita Chung - Last Filed: 04/11/18 20:23> History of Present Illness The patient is a 37 year old F [] Past Medical History Medical History: Medical History (Last Reviewed 01/30/18 @ 14:24 by Lauren Rivas) Neurogenic bowel (Chronic) K59.2 Neurogenic bladder (Chronic) N31.9 Chronic back pain (Chronic) M54.9, G89.29 History of migraine (Chronic) Z86.69 Depression (Chronic) F32.9 Spina bifida aperta of lumbar spine (Chronic) Q05.7 s/p surgery x 2 weakness and numbness in legs neurogenic bladder and frequent UTIs Non-compliance (Chronic) Z91.19 Morbid obesity with BMI of 40.0-44.9, adult (Chronic) E66.01, Z68.41 Diabetes mellitus, type II (Chronic) E11.9 Nausea and vomiting (Acute) R11.2 Hydronephrosis of right kidney (Chronic) N13.30 Consult dictated, For now Treat UTI and make sure pt does self cath. Will follow, no need yet for cysto retros etc. But this may change in future 13 Sept Re-admitted consult dictated UTI (urinary tract infection) (Resolved) N39.0 Allergies mushroom Allergy (Verified 04/11/18 13:31) Anaphylaxis peanut Allergy (Verified 04/11/18 13:31) Anaphylaxis Gadolinium-MRI Contrast Medium Adverse Reaction (Verified 04/11/18 13:31) Vomiting Surgical History: Surgical History (Last Reviewed 01/30/18 @ 14:24 by Lauren Rivas) History of cholecystectomy Z90.49 History of dilation and curettage Z98.890 History of spinal surgery Z98.890 Hx of foot surgery Z98.890 Hx of ventral hernia repair Z98.890, Z87.19 Status post gastric surgery Z98.890 - *Family History Maternal Family History: Family History (Last Reviewed 04/11/18 @ 17:10 by NACHO Maravilla) Mother CVA (cerebral vascular accident) Thyroid disorder Diabetes Hypertension Paternal Family History: Family History (Last Reviewed 04/11/18 @ 17:10 by NACHO Maravilla) Mother CVA (cerebral vascular accident) Thyroid disorder Diabetes Hypertension Sibling Family History: Family History (Last Reviewed 04/11/18 @ 17:10 by NACHO Maravilla) Mother CVA (cerebral vascular accident) Thyroid disorder Diabetes Hypertension - Physical Exam Vital Signs Temp Pulse Resp BP Pulse Ox 98.1 F 79 16 108/57 L 97 04/11/18 17:58 04/11/18 19:10 04/11/18 17:58 04/11/18 17:58 04/11/18 17:58 Oxygen Delivery Method Room Air Weight: 106.594 kg Body Mass Index (BMI) 43.0 Finger Stick Blood Glucose 187 Intake and Output for Last 24 Hours 04/09/18 04/10/18 04/11/18 23:59 23:59 23:59 Intake Total 380 / 380 Balance 380 / 380 Laboratory Tests Past 24 Hrs 04/11/18 04/11/18 04/11/18 13:45 13:45 13:45 WBC 9.8 RBC 4.31 Hgb 13.1 Hct 39.9 MCV 92.6 MCH 30.4 MCHC 32.8 RDW 13.5 RDW Differential 45.0 H Plt Count 179 MPV 11.4 Immature Gran % (Auto) 0.700 Neut % (Auto) 67.4 Lymph % (Auto) 14.6 L [place] % (Auto) 9.1 Eos % (Auto) 7.6 H Baso % (Auto) 0.6 Absolute Neuts (auto) 6.6 Absolute Lymphs (auto) 1.43 Total Counted Not Reportable Sodium 139 Potassium 3.7 Chloride 101 Carbon Dioxide 27.0 Anion Gap 11 BUN 10 Creatinine 1.06 H Estim Creat Clear Calc 58.03 Est GFR (MDRD) Af Amer 75 Est GFR (MDRD) Non-Af 62 BUN/Creatinine Ratio 9.4 L Glucose 292 H Calcium 9.2 Serum , Qual NEGATIVE Urine Color Urine Clarity Urine pH Ur Specific [place] Urine Protein Urine Glucose (UA) Urine Ketones Urine Occult Blood Urine Nitrite Urine Bilirubin Urine Urobilinogen Ur Leukocyte Esterase Urine RBC Urine WBC Ur Squamous Epith Cells Urine Bacteria Urine Mucus 04/11/18 15:05 WBC RBC Hgb Hct MCV MCH MCHC RDW RDW Differential Plt Count MPV Immature Gran % (Auto) Neut % (Auto) Lymph % (Auto) [place] % (Auto) Eos % (Auto) Baso % (Auto) Absolute Neuts (auto) Absolute Lymphs (auto) Total Counted Sodium Potassium Chloride Carbon Dioxide Anion Gap BUN Creatinine Estim Creat Clear Calc Est GFR (MDRD) Af Amer Est GFR (MDRD) Non-Af BUN/Creatinine Ratio Glucose Calcium Serum , Qual Urine Color Yellow Urine Clarity Clear Urine pH 7.0 Ur Specific [place] 1.005 Urine Protein Negative Urine Glucose (UA) 1000 H Urine Ketones Negative Urine Occult Blood 10 H Urine Nitrite Negative Urine Bilirubin Negative Urine Urobilinogen Normal Ur Leukocyte Esterase Negative Urine RBC 0-5 SEEN Urine WBC 0-5 SEEN Ur Squamous Epith Cells 0-5 SEEN Urine Bacteria RARE Urine Mucus 0 SEEN Assessment/Plan This patient was seen in conjunction with Megan Clark NP. I have independently interviewed and examined the patient and reviewed pertinent historical, laboratory, and other data. Please refer to her note for patient's presentation, findings, and recommendations. 37-year-old with past medical history of type II DM, history of spina bifida, with neurogenic bladder and bowels, history of intermittent chronic constipation, history of umbilical stoma for bladder irrigation for as needed bowel irrigation comes in with a 5-day history of abdominal discomfort, nausea and vomiting and a 3-week history of no bowel movement. Patient was seen earlier in the ED and had a CT scan of the abdomen and pelvis done that showed no intestinal obstruction. She was discharged home with stool softeners. Abdominal x-ray on admission showed moderate stool but no evidence of bowel obstruction. She complains of chills but denied any fever. Her emesis with brownish in color. PMHX: In addition to the above, anxiety/depression, morbid obesity, right kidney hydronephrosis PSHX: Status post cholecystectomy, status post spinal surgery, status post to surgery, status post ventral hernia repair, status post gastric surgery Fhx: History of CVA, DM in mother, father has no pertinent family history SHx: Denies any smoking, use of alcohol or illicit drugs ROS: No point review of systems was essentially negative except for above in HPI Physical Exam: Vitals were reviewed -stable Gen: Morbidly obese, appears comfortable not pale, not jaundiced, alert oriented x3 CVS:HS I +II, regular, no murmurs RESP: [place] clear to auscultation GI: Heart sounds were present and normal, umbilical stoma with clear?yellow serous discharge, full, mild generalized tenderness, no palpable organs EXT:No edema Labs reviewed -unremarkable ASSESSMENT: 1. Acute on chronic constipation 2. Type II DM 3. Anxiety/depression 4. Morbid obesity 5. Hyperlipidemia 6. Right kidney hydronephrosis 8. Neurogenic bladder/bowel status post intermittent self-catheterization and flushes Plan: Admit to MedSurg, stool softeners, soapsud enema, GoLYTELY IV fluids, normal saline with 20 mEq of potassium in anticipation for diarrhea Check TSH Repeat blood work - CBCD, CMP in a.m. Continue home medications except for metformin Accu-Cheks with insulin sliding scale Possible discharge in a.m. if patient has moved her bowels Consider general surgical consult if patient still has not moved her bowels Code Visit OBSV E&M: 05196 Initial observation care L3
[2018-04-11 17:49] VITALS: BMI 43.0
[2018-04-11 17:58] VITALS: BP 108/57; PULSE 77; RESP 16; TEMP 36.7; O2SAT 97
[2018-04-11] MEDS: Magnesium Hydroxide 30 ML UDC PO (18:20)
[2018-04-11 19:10] VITALS: PULSE 79
[2018-04-11] MEDS: Electrolyte Solution/Peg's 4000 ML 1000 ML PO (19:55)
[2018-04-11 22:00] VITALS: PULSE 69
[2018-04-11] MEDS: busPIRone 15 MG TABLET PO (22:21)
[2018-04-11] MEDS: Senna/Docusate Sodium 1 Tablet 2 TABLET PO (22:21)
[2018-04-11] MEDS: Atorvastatin Calcium 10 MG Tablet PO (22:22)
[2018-04-11 22:30] LABS: Bedside Glucose 158 mg/dL (70-110)
[2018-04-11 23:00] VITALS: BP 122/76; PULSE 76; RESP 18; TEMP 36.4; O2SAT 98
[2018-04-11] MEDS: Phenazopyridine 95 MG Tablet PO (23:47)
[2018-04-12] MEDS: Phenazopyridine 95 MG Tablet PO (00:42)
--- NOTE | 2018-04-12 00:54 | CT_ITS ---
HISTORY: SEVERE ABD PAIN WITH CONSTIPATION, HX NEUROGENIC BLADDER, HERNIA REPAIR IN NOVEMBER, SPINA BIFIDA, DIAB TECHNIQUE: Multiple axial images were obtained of the abdomen and pelvis without oral or IV contrast. A radiation dose optimization technique was used for this scan. IV Contrast dosage and agent: None. Oral contrast: None. COMPARISON: 03/19/2018 FINDINGS: With comparison to previous, no significant change. LOWER CHEST: Lung bases: Clear. NG tube in place with the tube tip within the stomach. Nonvisualization of the gallbladder. Diffuse fatty infiltration of the liver without focal lesion or biliary dilatation. The spleen and pancreas show no CT abnormality. Kidneys: Normal in position. Chronic moderate hydronephrosis and moderate to marked right hydroureter with ureteral dilatation extending to the right UVJ. No obstructing lesion or stone seen. Right renal cortical thinning in keeping with an element of postobstructive atrophy. No renal or ureteral calculi. No hydronephrosis or hydroureter on the left. Adrenal glands are not enlarged. Abdominal aorta and IVC are unremarkable. No ascites or retroperitoneal lymphadenopathy. GI tract: No obstruction. Considerable fecal residue within the colon compatible with constipation. Pelvis: Mild diffuse thickening of the urinary bladder wall. History of neurogenic bladder. Tiny bladder wall diverticulum on the left. The pelvis shows no free fluid or lymphadenopathy. Anteverted uterus which tilts to the right. Multiple metallic tacks related to ventral wall hernia repair. CT/Abdomen/Pelvis without Cont IMPRESSION: 1. No significant change. Moderate right hydronephrosis and moderate to marked right hydroureter without CT findings of obstructing lesion or stone. 2. Urinary bladder mild diffuse mural thickening, unchanged, with history of neurogenic bladder. 3. NG tube in place with the tip within the stomach lumen 4. Chronic findings include fatty infiltration of the liver, cholecystectomy, and ventral wall hernia repair Individualized dose optimization techniques were used for this CT. at 0237 Reported and signed by: Gaurav Sanchez MD Electronically Signed: Gaurav Sanchez, at 2:35 EST Tel , Service support ,
[2018-04-12 02:15] VITALS: PULSE 80
[2018-04-12] MEDS: Morphine 2 MG/ML Syringe IV (03:24)
[2018-04-12 05:00] VITALS: BP 135/83; PULSE 82; RESP 18; TEMP 36.9; O2SAT 96
[2018-04-12 06:00] VITALS: PULSE 80
[2018-04-12 06:09] LABS: Absolute Neutrophil Count 12.8 X10^3/uL (2.0-7.7); Basophil# 0.05 X10^3/uL; Basophil% 0.3 % (0-1); Eosinophil# 0.31 X10^3/uL; Hemoglobin 11.8 g/dl (12.0-15.0); Lymphocyte % 6.5 % (19-41); Mean Corp Hgb Conc 32.8 g/gl (32-36); Mean Corpuscular Hgb 30.3 pg (27.0-32.0); Mean Corpuscular Volume 92.5 fL (81-99); Mean Platelet Vol. 11.4 fl (6.2-12.0); Monocyte% 7.2 % (0-10); Neutrophil % 83.4 % (47-70); Platelet Count 159 K/mm3 (150-450); RBC Distribution Width CV 13.3 % (11.6-14.6); RBC Distribution Width SD 44.3 fl (35.1-43.9); Red Blood Count 3.89 M/mm3 (4.2-5.4); White Blood Count 15.4 K/mm3 (4.4-11.0)
[2018-04-12 06:11] LABS: POSITIVE COUNT NO; POSITIVE DIFFERENTIAL NO; POSITIVE MORPHOLOGY NO
[2018-04-12 06:31] LABS: Anion Gap 11 (5-15); BUN 11 mg/dL (7-18); BUN/Creat Ratio 10.8 RATIO (10-20); Calcium,Total 8.3 mg/dL (8.5-10.1); Chloride 106 mmol/L (98-107); Creatinine, Serum 1.02 mg/dL (0.55-1.02); EST Glomerular Filtration Rate 65 mL/min (>60); Est Glom Filt Rate - Afr Amer 79 mL/min (>60); Estimated Creatinine Clearance 60.31 ml/min; Glucose 227 mg/dL (74-106); Potassium 4.4 mmol/L (3.5-5.1); Sodium Level 138 mmol/L (136-145)
--- NOTE | 2018-04-12 07:29 | NURSING ---
23:00 order obtained for pyridium for bladder pain. Pt states that is what works at home. c/o pain in the bladder from urinating so much because of the nulytly.
--- NOTE | 2018-04-12 07:31 | NURSING ---
Called again for additional order of pyridium pts urine is red tinged and continues to complain of pain.
--- NOTE | 2018-04-12 07:32 | NURSING ---
0230 doctor on the floor to see the patient. ordered cat scan of the bladder/ abd due to pain and red urine.
--- NOTE | 2018-04-12 07:44 | CON.PCM_ITS ---
Problem List (1) Hydronephrosis Status: Acute Qualifiers: Hydronephrosis type: unspecified Qualified Code(s): N13.30 - Unspecified hydronephrosis Reason for Consult Date of Consultation: 04/12/18 Reason for Consultation: Hydronephrosis incidental finding History of Present Illness: The patient is a 37 year old female with myelomeningocele who was admitted to the hospital because of severe constipation she had a CAT scan done that demonstrated right hydronephrosis this is actually not new she has had this now for several years she is followed by urologist at the [facility]. Most likely this hydronephrosis is due to her neurogenic bladder and reflux. Reviewing her CAT scans from 2015 2014 she had right hydronephrosis back then, probably chronic in nature. She did have a renal scan as well. She denies any flank pain. She manages her bladder with self intermittent catheterization. She has a neurogenic bladder. Past Medical History Past Medical History (Chronic Problems): Chronic Problems (Last Reviewed 01/30/18 @ 14:24 by Lauren Rivas) Neurogenic bowel (Chronic) Neurogenic bladder (Chronic) Chronic back pain (Chronic) History of migraine (Chronic) Depression (Chronic) Spina bifida aperta of lumbar spine (Chronic) s/p surgery x 2 weakness and numbness in legs neurogenic bladder and frequent UTIs Non-compliance (Chronic) Morbid obesity with BMI of 40.0-44.9, adult (Chronic) Diabetes mellitus, type II (Chronic) Hydronephrosis of right kidney (Chronic) Consult dictated, For now Treat UTI and make sure pt does self cath. Will follow, no need yet for cysto retros etc. But this may change in future 13 Sept Re-admitted consult dictated Medical History: Medical History (Last Reviewed 01/30/18 @ 14:24 by Lauren Rivas) Neurogenic bowel (Chronic) K59.2 Neurogenic bladder (Chronic) N31.9 Chronic back pain (Chronic) M54.9, G89.29 History of migraine (Chronic) Z86.69 Depression (Chronic) F32.9 Spina bifida aperta of lumbar spine (Chronic) Q05.7 s/p surgery x 2 weakness and numbness in legs neurogenic bladder and frequent UTIs Non-compliance (Chronic) Z91.19 Morbid obesity with BMI of 40.0-44.9, adult (Chronic) E66.01, Z68.41 Diabetes mellitus, type II (Chronic) E11.9 Nausea and vomiting (Acute) R11.2 Hydronephrosis of right kidney (Chronic) N13.30 Consult dictated, For now Treat UTI and make sure pt does self cath. Will follow, no need yet for cysto retros etc. But this may change in future 13 Sept Re-admitted consult dictated UTI (urinary tract infection) (Resolved) N39.0 Allergies mushroom Allergy (Verified 04/11/18 13:31) Anaphylaxis peanut Allergy (Verified 04/11/18 13:31) Anaphylaxis Gadolinium-MRI Contrast Medium Adverse Reaction (Verified 04/11/18 13:31) Vomiting Home Medications: Ambulatory Orders Medication Instructions Recorded Duloxetine Hcl [Cymbalta] 60 mg PO DAILY 10/06/15 Metformin(XR) [Glucophage Xr] 1,000 mg PO BID 06/19/16 Propranolol HCl 10 mg PO DAILY 07/18/17 Atorvastatin Calcium [Lipitor] 10 mg PO QHS 18 Loratadine 10 mg PO DAILY 01/21/18 Pseudoephedrine HCl [Sudogest] 30 mg PO Q6H PRN PRN 18 Pregabalin [Lyrica] 75 mg PO DAILY 18 Glimepiride [Amaryl] 4 mg PO DAILY 18 Buspirone HCl 15 mg PO BID 18 Surgical History: Surgical History (Last Reviewed 01/30/18 @ 14:24 by Lauren Rivas) History of cholecystectomy Z90.49 History of dilation and curettage Z98.890 History of spinal surgery Z98.890 Hx of foot surgery Z98.890 Hx of ventral hernia repair Z98.890, Z87.19 Status post gastric surgery Z98.890 Surgical History: cholecystectomy, - - D&C, lumbar back surgery x2, foot surgery x2, abdominal stoma, ventral hernia repair. 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 ARCHITECT History: No pertinent INFORMATICA MDM ARCHITECT history Lives: Spouse/ Significant Other Smoking Status: Never smoker Tobacco Use: Secondhand Alcohol: None Drugs: None - *Family History Maternal Family History: Family History (Last Reviewed 04/11/18 @ 17:10 by PATRICK MaravillaC) Mother CVA (cerebral vascular accident) Thyroid disorder Diabetes Hypertension History Items: Cancer, Diabetes, Hypertension, Stroke Paternal Family History: Family History (Last Reviewed 04/11/18 @ 17:10 by NACHO Maravilla) Mother CVA (cerebral vascular accident) Thyroid disorder Diabetes Hypertension History Items: No pertinent history Sibling Family History: Family History (Last Reviewed 04/11/18 @ 17:10 by NACHO Maravilla) Mother CVA (cerebral vascular accident) Thyroid disorder Diabetes Hypertension History Items: No pertinent history Physical Exam - Physical Exam Vital Signs Temp 98.5 F 04/12/18 05:00 Pulse 80 04/12/18 06:00 Resp 18 04/12/18 05:00 BP 135/83 H 04/12/18 05:00 Pulse Ox 96 04/12/18 05:00 Intake & Output 04/10/18 04/11/18 04/12/18 23:59 23:59 23:59 Intake Total 380 / 380 2564 / 2564 Output Total 600 / 600 Balance 380 / 380 1962 / 1962 Weight: 106.594 kg Intake: Oral 180 / 180 1400 / 1400 IV fluid/meds 200 / 200 1164 / 1164 Output: Urine 600 / 600 Other: Number of Bowel Movements 1 General: Alert, Oriented x3 HEENT: Atraumatic Oral: Moist Mucosa Neck: Supple Abdomen: Soft, Obese Laboratory Tests Past 24 Hrs 04/11/18 04/11/18 04/11/18 13:45 13:45 13:45 WBC 9.8 RBC 4.31 Hgb 13.1 Hct 39.9 MCV 92.6 MCH 30.4 MCHC 32.8 RDW 13.5 RDW Differential 45.0 H Plt Count 179 MPV 11.4 Immature Gran % (Auto) 0.700 Neut % (Auto) 67.4 Lymph % (Auto) 14.6 L Sunflower % (Auto) 9.1 Eos % (Auto) 7.6 H Baso % (Auto) 0.6 Absolute Neuts (auto) 6.6 Absolute Lymphs (auto) 1.43 Total Counted Not Reportable Sodium 139 Potassium 3.7 Chloride 101 Carbon Dioxide 27.0 Anion Gap 11 BUN 10 Creatinine 1.06 H Estim Creat Clear Calc 58.03 Est GFR (MDRD) Af Amer 75 Est GFR (MDRD) Non-Af 62 BUN/Creatinine Ratio 9.4 L Glucose 292 H Calcium 9.2 TSH Serum , Qual NEGATIVE Urine Color Urine Clarity Urine pH Ur Specific [place] Urine Protein Urine Glucose (UA) Urine Ketones Urine Occult Blood Urine Nitrite Urine Bilirubin Urine Urobilinogen Ur Leukocyte Esterase Urine RBC Urine WBC Ur Squamous Epith Cells Urine Bacteria Urine Mucus 04/11/18 04/11/18 04/12/18 13:45 15:05 05:46 WBC 15.4 H RBC 3.89 L Hgb 11.8 L Hct 36.0 L MCV 92.5 MCH 30.3 MCHC 32.8 RDW 13.3 RDW Differential 44.3 H Plt Count 159 MPV 11.4 Immature Gran % (Auto) 0.600 Neut % (Auto) 83.4 H Lymph % (Auto) 6.5 L Sunflower % (Auto) 7.2 Eos % (Auto) 2.0 Baso % (Auto) 0.3 Absolute Neuts (auto) 12.8 H Absolute Lymphs (auto) 1.00 Total Counted Not Reportable Sodium Potassium Chloride Carbon Dioxide Anion Gap BUN Creatinine Estim Creat Clear Calc Est GFR (MDRD) Af Amer Est GFR (MDRD) Non-Af BUN/Creatinine Ratio Glucose Calcium TSH 1.00 Serum , Qual Urine Color Yellow Urine Clarity Clear Urine pH 7.0 Ur Specific [place] 1.005 Urine Protein Negative Urine Glucose (UA) 1000 H Urine Ketones Negative Urine Occult Blood 10 H Urine Nitrite Negative Urine Bilirubin Negative Urine Urobilinogen Normal Ur Leukocyte Esterase Negative Urine RBC 0-5 SEEN Urine WBC 0-5 SEEN Ur Squamous Epith Cells 0-5 SEEN Urine Bacteria RARE Urine Mucus 0 SEEN 04/12/18 05:46 WBC RBC Hgb Hct MCV MCH MCHC RDW RDW Differential Plt Count MPV Immature Gran % (Auto) Neut % (Auto) Lymph % (Auto) Sunflower % (Auto) Eos % (Auto) Baso % (Auto) Absolute Neuts (auto) Absolute Lymphs (auto) Total Counted Sodium 138 Potassium 4.4 Chloride 106 Carbon Dioxide 21.0 Anion Gap 11 BUN 11 Creatinine 1.02 Estim Creat Clear Calc 60.31 Est GFR (MDRD) Af Amer 79 Est GFR (MDRD) Non-Af 65 BUN/Creatinine Ratio 10.8 Glucose 227 H Calcium 8.3 L TSH Serum , Qual Urine Color Urine Clarity Urine pH Ur Specific [place] Urine Protein Urine Glucose (UA) Urine Ketones Urine Occult Blood Urine Nitrite Urine Bilirubin Urine Urobilinogen Ur Leukocyte Esterase Urine RBC Urine WBC Ur Squamous Epith Cells Urine Bacteria Urine Mucus Assessment/Plan All Active Problems (Last Reviewed 01/30/18 @ 14:24 by Lauren Rivas) Hydronephrosis (Acute) Nausea and vomiting (Acute) UTI (urinary tract infection) (Resolved) 37-year-old female admitted for constipation was found to have right hydronephrosis at the time of admission on CAT scan this is a chronic finding she is to follow-up with a urologist at the [facility] regarding this finding and regarding her bladder management she may need further bladder management changes probably reflux from neurogenic bladder she appears to be catheterizing adequately. Call me with questions.
[2018-04-12] MEDS: Glimepiride 4 MG Tablet PO (08:15)
[2018-04-12 08:26] LABS: Bedside Glucose 208 mg/dL (70-110)
[2018-04-12 10:00] VITALS: PULSE 86
[2018-04-12] MEDS: DULoxetine Hcl 60 MG Capsule PO (10:46)
[2018-04-12] MEDS: Bisacodyl 10 MG Suppository RECTAL (10:46)
[2018-04-12] MEDS: Pregabalin 75 MG Capsule PO (10:46)
[2018-04-12] MEDS: Propranolol 10 MG Tablet PO (10:46)
[2018-04-12] MEDS: busPIRone 15 MG TABLET PO (10:46)
[2018-04-12] MEDS: Loratadine 10 MG Tablet PO (10:46)
[2018-04-12] MEDS: Senna/Docusate Sodium 1 Tablet 2 TABLET PO (10:46)
--- NOTE | 2018-04-12 10:56 | DCINST_ITS ---
- Discharge Diagnoses Current Active Problems: Current Active and Chronic Problems (Last Reviewed 01/30/18 @ 14:24 by Lauren Rivas) Hydronephrosis (Acute) You will use the following diet at home:: No restrictions Your food should be the consistency of: Regular Call your doctor if you observe: Fever of 101 or Higher, - - increased abdominal pain. Allergies/Adverse Reactions: Allergies mushroom Allergy (Verified 04/11/18 13:31) Anaphylaxis peanut Allergy (Verified 04/11/18 13:31) Anaphylaxis Gadolinium-MRI Contrast Medium Adverse Reaction (Verified 04/11/18 13:31) Vomiting Medications to take at Discharge Duloxetine Hcl [Cymbalta] 60 mg PO DAILY 10/06/15 Metformin(XR) [Glucophage Xr] 1,000 mg PO BID 06/19/16 Propranolol HCl 10 mg PO DAILY 07/18/17 Atorvastatin Calcium [Lipitor] 10 mg PO QHS 11/07/17 Loratadine 10 mg PO DAILY 01/21/18 Pseudoephedrine HCl [Sudogest] 30 mg PO Q6H PRN PRN 01/21/18 Pregabalin [Lyrica] 75 mg PO DAILY 02/25/18 Glimepiride [Amaryl] 4 mg PO DAILY 03/03/18 Buspirone HCl 15 mg PO BID 04/11/18 Acetaminophen 1,000 mg PO TID PRN #1 tablet 04/12/18 Bisacodyl [Dulcolax] 10 mg PO DAILY PRN #1 tablet 04/12/18 Dicyclomine HCl [Bentyl] 10 mg PO TIDAC PRN #30 capsule 04/12/18 Ibuprofen 600 mg PO 4X/DAY PRN #1 tablet 04/12/18 Polyethylene Glycol 3350 [Miralax] 17 gm PO DAILY #1 packet 04/12/18 The following prescriptions were given: Bisacodyl [Dulcolax] 10 mg PO DAILY PRN #1 tablet PRN Reason: Constipation Dicyclomine HCl [Bentyl] 10 mg PO TIDAC PRN #30 capsule PRN Reason: abdominal cramps Polyethylene Glycol 3350 [Miralax] 17 gm PO DAILY #1 packet Acetaminophen 1,000 mg PO TID PRN #1 tablet PRN Reason: Pain Ibuprofen 600 mg PO 4X/DAY PRN #1 tablet PRN Reason: Pain Primary Care Physician: Will Shukla MD [Primary Care Provider] - Within 2 Weeks Test Results: Test results from this visit will be discussed in further detail at your follow- up appointment, if applicable. Please Follow Up With: urology When: 2-3 weeks. Proposed Discharge Date: 04/12/18
--- NOTE | 2018-04-12 10:56 | PCM.DC.SUM ---
Discharge Date and Diagnosis - Problem List Patient Problems: Active and Suspected Problems (Last Reviewed 01/30/18 @ 14:24 by Lauren Rivas) Constipation (Acute) Date of Admission: 04/11/18 - Primary Discharge Diagnosis Active and Suspected Problems (Last Reviewed 01/30/18 @ 14:24 by Lauren Rivas) Constipation (Acute) Hydronephrosis (Acute) - Secondary Discharge Diagnosis Chronic Problems (Last Reviewed 01/30/18 @ 14:24 by Lauren Rivas) Neurogenic bowel (Chronic) Neurogenic bladder (Chronic) Chronic back pain (Chronic) History of migraine (Chronic) Depression (Chronic) Spina bifida aperta of lumbar spine (Chronic) s/p surgery x 2 weakness and numbness in legs neurogenic bladder and frequent UTIs Non-compliance (Chronic) Morbid obesity with BMI of 40.0-44.9, adult (Chronic) Diabetes mellitus, type II (Chronic) Hydronephrosis of right kidney (Chronic) Consult dictated, For now Treat UTI and make sure pt does self cath. Will follow, no need yet for cysto retros etc. But this may change in future 13 Sept Re-admitted consult dictated Hospital Course and Treatment Imaging Results: Clinical Impression(s) from Imaging Studies Abdomen X-Ray 04/11/18 15:45 IMPRESSION: Unremarkable bowel pattern. There is no evidence of constipation. The quantity of stool distributed throughout the large bowel is moderate. There is no evidence of bowel obstruction. Electronically Signed: Severino Aguilar, at 16:54 EST Tel , Service support , Abdomen/Pelvis CT 04/12/18 00:54 IMPRESSION: 1. No significant change. Moderate right hydronephrosis and moderate to marked right hydroureter without CT findings of obstructing lesion or stone. 2. Urinary bladder mild diffuse mural thickening, unchanged, with history of neurogenic bladder. 3. NG tube in place with the tip within the stomach lumen 4. Chronic findings include fatty infiltration of the liver, cholecystectomy, and ventral wall hernia repair Individualized dose optimization techniques were used for this CT. at 0237 Reported and signed by: Gaurav Sanchez MD Electronically Signed: Gaurav Sanchez, at 2:35 EST Tel , Service support , Ki Reza MD: urology Operations: None Procedures: None Summary of Care Provided: The patient is a 37 year old F resents with abdominal pain, constipation for 3 weeks and nausea and vomiting. Patient had a CAT scan that showed hydronephrosis on the right but unchanged from previous. Patient also has constipation but not as much as one would expect to see with reported 3 weeks of constipation. Patient was started on Nulytely, B & O. Patient still complaining of abdominal pain, however patient was sleeping very soundly. I did review the patient's records here, and patient has been to the emergency room 3 times for a variety of issues. Concern for ulterior motive perhaps since then some of these visits but but overall concerning for some of it comes the hospital that frequently. It also appears the patient has been to other hospitals as well release other specialists as her O[facility] reports [facility] physicians providing some controlled substances at times. Patient advised to take MiraLAX daily, patient was only doing a as needed before. Additionally, recommend take Dulcolax as needed for constipation. If the constipation is not relieved with that then she may need additional agents but would want her to at least utilize this regimen for the time being before adding other medications on top of that. Patient was seen by urology given the hydronephrosis and recommended no acute intervention at this time. Patient instructed to follow-up with her regular general store manager at [facility]. Patient states that she is not been able to make appointments and when she is able to make the appointments the specialist cancels them. Advised her to perhaps seek out other urologist and may be closer that may be amenable to her condition but she will need to make that initiative. [] Patient Problems: Active and Suspected Problems (Last Reviewed 01/30/18 @ 14:24 by Lauren Rivas) Constipation (Acute) - Physical Exam General: Alert, No apparent distress HEENT: Atraumatic, Normocephalic Oral: Moist Mucosa, No Gingival or Mucosal Lesions/ Ulcerations Neck: No Nodes, Thyroid Normal Size and Texture Lungs: Clear to auscultation, Normal air movement, No rhonchi, No wheeze Cardiovascular: Regular rate, Regular Rhythm, Normal S1, Normal S2 Abdomen: Bowel Sounds Present, Soft, Non Tender, Non-Distended, Obese Extremities: No edema, No Calf Tenderness Vital Signs Temp Pulse Resp BP Pulse Ox 36.9 C 80 18 135/83 H 96 04/12/18 05:00 04/12/18 06:00 04/12/18 05:00 04/12/18 05:00 04/12/18 05:00 Oxygen Delivery Method Room Air Weight: 106.594 kg Body Mass Index (BMI) 43.0 Finger Stick Blood Glucose 187 Intake and Output for Last 24 Hours 04/10/18 04/11/18 04/12/18 23:59 23:59 23:59 Intake Total 380 / 380 2564 / 2564 Output Total 600 / 600 Balance 380 / 380 1963 / 1963 Laboratory Tests Past 24 Hrs 04/11/18 04/11/18 04/11/18 13:45 13:45 13:45 WBC 9.8 RBC 4.31 Hgb 13.1 Hct 39.9 MCV 92.6 MCH 30.4 MCHC 32.8 RDW 13.5 RDW Differential 45.0 H Plt Count 179 MPV 11.4 Immature Gran % (Auto) 0.700 Neut % (Auto) 67.4 Lymph % (Auto) 14.6 L [place] % (Auto) 9.1 Eos % (Auto) 7.6 H Baso % (Auto) 0.6 Absolute Neuts (auto) 6.6 Absolute Lymphs (auto) 1.43 Total Counted Not Reportable Sodium 139 Potassium 3.7 Chloride 101 Carbon Dioxide 27.0 Anion Gap 11 BUN 10 Creatinine 1.06 H Estim Creat Clear Calc 58.03 Est GFR (MDRD) Af Amer 75 Est GFR (MDRD) Non-Af 62 BUN/Creatinine Ratio 9.4 L Glucose 292 H Calcium 9.2 TSH Serum , Qual NEGATIVE Urine Color Urine Clarity Urine pH Ur Specific [place] Urine Protein Urine Glucose (UA) Urine Ketones Urine Occult Blood Urine Nitrite Urine Bilirubin Urine Urobilinogen Ur Leukocyte Esterase Urine RBC Urine WBC Ur Squamous Epith Cells Urine Bacteria Urine Mucus 04/11/18 04/11/18 04/12/18 13:45 15:05 05:46 WBC 15.4 H RBC 3.89 L Hgb 11.8 L Hct 36.0 L MCV 92.5 MCH 30.3 MCHC 32.8 RDW 13.3 RDW Differential 44.3 H Plt Count 159 MPV 11.4 Immature Gran % (Auto) 0.600 Neut % (Auto) 83.4 H Lymph % (Auto) 6.5 L Ritch[place] % (Auto) 7.2 Eos % (Auto) 2.0 Baso % (Auto) 0.3 Absolute Neuts (auto) 12.8 H Absolute Lymphs (auto) 1.00 Total Counted Not Reportable Sodium Potassium Chloride Carbon Dioxide Anion Gap BUN Creatinine Estim Creat Clear Calc Est GFR (MDRD) Af Amer Est GFR (MDRD) Non-Af BUN/Creatinine Ratio Glucose Calcium TSH 1.00 Serum , Qual Urine Color Yellow Urine Clarity Clear Urine pH 7.0 Ur Specific [place] 1.005 Urine Protein Negative Urine Glucose (UA) 1000 H Urine Ketones Negative Urine Occult Blood 10 H Urine Nitrite Negative Urine Bilirubin Negative Urine Urobilinogen Normal Ur Leukocyte Esterase Negative Urine RBC 0-5 SEEN Urine WBC 0-5 SEEN Ur Squamous Epith Cells 0-5 SEEN Urine Bacteria RARE Urine Mucus 0 SEEN 04/12/18 05:46 WBC RBC Hgb Hct MCV MCH MCHC RDW RDW Differential Plt Count MPV Immature Gran % (Auto) Neut % (Auto) Lymph % (Auto) Ritchie % (Auto) Eos % (Auto) Baso % (Auto) Absolute Neuts (auto) Absolute Lymphs (auto) Total Counted Sodium 138 Potassium 4.4 Chloride 106 Carbon Dioxide 21.0 Anion Gap 11 BUN 11 Creatinine 1.02 Estim Creat Clear Calc 60.31 Est GFR (MDRD) Af Amer 79 Est GFR (MDRD) Non-Af 65 BUN/Creatinine Ratio 10.8 Glucose 227 H Calcium 8.3 L TSH Serum , Qual Urine Color Urine Clarity Urine pH Ur Specific [place] Urine Protein Urine Glucose (UA) Urine Ketones Urine Occult Blood Urine Nitrite Urine Bilirubin Urine Urobilinogen Ur Leukocyte Esterase Urine RBC Urine WBC Ur Squamous Epith Cells Urine Bacteria Urine Mucus POC Glucose 04/12/18 04/11/18 08:18 22:17 POC Glucose 208 H 158 H Discharge Diet: No Restrictions Call your doctor if you observe: Fever of 101 or Higher, - - increased abdominal pain. Home Medications: Medications to take at Discharge Duloxetine Hcl [Cymbalta] 60 mg PO DAILY 10/06/15 Metformin(XR) [Glucophage Xr] 1,000 mg PO BID 06/19/16 Propranolol HCl 10 mg PO DAILY 07/18/17 Atorvastatin Calcium [Lipitor] 10 mg PO QHS 11/07/17 Loratadine 10 mg PO DAILY 01/21/18 Pseudoephedrine HCl [Sudogest] 30 mg PO Q6H PRN PRN 01/21/18 Pregabalin [Lyrica] 75 mg PO DAILY 02/25/18 Glimepiride [Amaryl] 4 mg PO DAILY 03/03/18 Buspirone HCl 15 mg PO BID 04/11/18 Acetaminophen 1,000 mg PO TID PRN #1 tablet 04/12/18 Bisacodyl [Dulcolax] 10 mg PO DAILY PRN #1 tablet 04/12/18 Dicyclomine HCl [Bentyl] 10 mg PO TIDAC PRN #30 capsule 04/12/18 Ibuprofen 600 mg PO 4X/DAY PRN #1 tablet 04/12/18 Polyethylene Glycol 3350 [Miralax] 17 gm PO DAILY #1 packet 04/12/18 Following Prescrptions Were Given to Patient: Bisacodyl [Dulcolax] 10 mg PO DAILY PRN #1 tablet PRN Reason: Constipation Dicyclomine HCl [Bentyl] 10 mg PO TIDAC PRN #30 capsule PRN Reason: abdominal cramps Polyethylene Glycol 3350 [Miralax] 17 gm PO DAILY #1 packet Acetaminophen 1,000 mg PO TID PRN #1 tablet PRN Reason: Pain Ibuprofen 600 mg PO 4X/DAY PRN #1 tablet PRN Reason: Pain Primary Care Physician: Will Shukla MD [Primary Care Provider] - Within 2 Weeks Please Follow Up With: urology When: 2-3 weeks. Disposition: Home Minutes spent on discharge:: 32 Patient Condition:: Fair Medical Necessity - Tobacco Use Smoking Status: Never smoker Tobacco Use: Secondhand Meaningful Use Info Meaningful Use Diagnoses (Choose all that apply): None applicable Code Visit OBSV E&M: 16985 Observation care discharge
== END 2018-04-12 12:39 | disposition home or self-care (01) ==
LOC: ED 17:13 → MS3 17:20
PROVIDERS: Admitting Provider Internal Medicine; Emergency Provider Emergency Medicine; Family Provider Family Medicine; PCP Family Medicine
DX: K59.00 Constipation, unspecified (principal); N31.9 Neuromuscular dysfunction of bladder, unspecified; Q05.7 Lumbar spina bifida without hydrocephalus; E66.01 Morbid (severe) obesity due to excess calories; Z68.41 Body mass index [BMI] 40.0-44.9, adult; Z71.3 Dietary counseling and surveillance; Z91.19 Patient's noncompliance with other medical treatment and regimen; N13.30 Unspecified hydronephrosis; E11.9 Type 2 diabetes mellitus without complications; K59.2 Neurogenic bowel, not elsewhere classified; G89.29 Other chronic pain; F32.9 Major depressive disorder, single episode, unspecified; F41.9 Anxiety disorder, unspecified; E78.5 Hyperlipidemia, unspecified
CPT/HCPCS: 36415; 74019; 74176; 80048; 81001; 82962; 84443; 84703; 85025; 96361; 96374; 96375; 99218; 99283; J7030; A4216; G0378; J2405

== ENCOUNTER 2018-04-13 15:10 | Emergency (ER) | payer MEDICARE, MEDICAID, SELFPAY ==
[2018-04-11 17:49] VITALS: BMI 43.0
[2018-04-13 15:11] VITALS: BP 138/99; PULSE 90; RESP 20; TEMP 36.6; BMI 43.0
--- NOTE | 2018-04-13 15:42 | CT_ITS ---
STUDY: CT ABDOMEN AND PELVIS WITH CONTRAST REASON FOR EXAM: Female, 37 years old. Dysuria RADIATION DOSAGE (If Supplied By Facility): CTDIvol = ( 20.06 ) mGy, DLP = ( 1246.55 ) mGycm TECHNIQUE: Transaxial images were obtained from the dome of the diaphragm to the symphysis pubis without oral contrast. 100ML ml of Isovue 300 contrast was administered. Sagittal and coronal images were reconstructed. Individualized dose optimization techniques were used for this CT. COMPARISON: None. FINDINGS: The visualized lung bases are unremarkable. The visualized portions of the heart are within normal limits. There is mild prominence of the liver which is fatty infiltrated without mass or bile duct dilatation. Gallbladder not visualized which may be consistent with prior cholecystectomy. Normal spleen. Normal pancreas. Normal bilateral adrenal glands. There is mild cortical scarring of both kidneys greater on the right likely due to old inflammatory disease.. There is moderate to severe right renal pelvocaliectasis and hydroureter with diffuse thickening of the ureteral hallman as well as contracted thick-walled bladder. Normal visualized stomach. Normal small intestine. Normal colon. The appendix is visualized and appears normal. Normal abdominal aorta. Normal inferior vena cava. Normal retroperitoneum. Uterus is deviated towards the right and there is minor cystic changes within the adnexa bilaterally. 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 There is also apparent posterior decompression of the sacral canal extending to S3-4. No significant change since prior study CT/Abdomen/Pelvis WITH Contrast IMPRESSION: Contracted thick-walled bladder which may be due to nonspecific cystitis with distention of both the right ureter and renal collecting system possibly due to chronic reflux however bladder wall lesion obstructing the ureter cannot be entirely excluded. Electronically Signed: Will Joe MD at 18:18 EST , Service support ,
[2018-04-13 16:26] LABS: Mucous, Urine 0 SEEN /hpf (<or=2+)
[2018-04-13 16:36] LABS: Absolute Lymphocyte Count 1.96 X10^3/ul (0.83-4.51); Absolute Neutrophil Count 6.9 X10^3/uL (2.0-7.7); Basophil# 0.05 X10^3/uL; Basophil% 0.5 % (0-1); Eosinophils% 4.7 % (0-5); Hematocrit 40.2 % (37-47); Lymphocyte # 1.96 X10^3/ul (4.0); Lymphocyte % 18.4 % (19-41); Mean Corp Hgb Conc 32.3 g/gl (32-36); Mean Corpuscular Volume 92.6 fL (81-99); Mean Platelet Vol. 10.8 fl (6.2-12.0); Monocyte# 1.15 X10^3/uL; Monocyte% 10.8 % (0-10); Neutrophil # 6.91 X10^3/uL (2.7-7.7); Neutrophil % 64.9 % (47-70); Platelet Count 173 K/mm3 (150-450); RBC Distribution Width CV 13.7 % (11.6-14.6); RBC Distribution Width SD 46.6 fl (35.1-43.9); Red Blood Count 4.34 M/mm3 (4.2-5.4); White Blood Count 10.6 K/mm3 (4.4-11.0)
[2018-04-13 16:37] LABS: POSITIVE COUNT NO; POSITIVE DIFFERENTIAL NO; POSITIVE MORPHOLOGY NO
[2018-04-13] MEDS: Morphine 4 MG/ML Syringe IV (16:46)
[2018-04-13] MEDS: 0.9% Normal Saline 1,000 ML 125 ML IV (16:46)
[2018-04-13] MEDS: Ondansetron 4 MG/2 ML Vial IV (16:46)
[2018-04-13 16:56] LABS: ALB/GLOB Ratio 0.9 RATIO (0.9-2.4); AST(SGOT) 75 U/L (15-37); Alanine Aminotransfer ALT/SGPT 55 U/L (13-56); Albumin, Serum 3.7 g/dL (3.2-5.0); Alkaline Phosphatase 66 U/L (45-117); Anion Gap 5 (5-15); BUN 9 mg/dL (7-18); BUN/Creat Ratio 10.3 RATIO (10-20); Calcium,Total 8.6 mg/dL (8.5-10.1); Chloride 105 mmol/L (98-107); Creatinine, Serum 0.87 mg/dL (0.55-1.02); EST Glomerular Filtration Rate 78 mL/min (>60); Est Glom Filt Rate - Afr Amer 95 mL/min (>60); Globulin 4.3 g/dL (2.2-4.2); Glucose 171 mg/dL (74-106); Lipase 78 U/L (73-393); Potassium 4.9 mmol/L (3.5-5.1); Sodium Level 137 mmol/L (136-145)
[2018-04-13 17:17] LABS: Color, Urine Yellow (Yellow); Glucose, Dipstick 1000 mg/dl (Normal); Ketone-Dipstick Negative (Negative); Leukocyte Esterase-Dipstick 500 /ul (Negative); Nitrite-Dipstick Negative (Negative); Occult Blood-Urine 150 /ul (Negative); Protein-Dipstick 30 mg/dl (Negative); Urine Bilirubin Dipstick Negative (Negative); Urine Clarity Cloudy (Clear); Urine Urobilinogen 1 mg/dl (Normal); Urine pH 6.5 (5.0 - 8.0)
[2018-04-13 17:24] LABS: Bacteria RARE /hpf (None Seen); Red Blood Cells-Urine 0-5 SEEN /hpf (0-5); Squamous Epithelial Cells - UA 0-5 SEEN /hpf (5-10); White Blood Cells >100 SEEN /hpf (0-5)
[2018-04-13 17:27] LABS: Pregnancy, Serum, hCG Quali. NEGATIVE Negative (0-9 Nonpreg)
[2018-04-13 18:27] VITALS: BP 120/73; PULSE 65; RESP 18; O2SAT 97
--- NOTE | 2018-04-13 18:40 | ED.VISSUMM ---
- ER Visit Summary Date of Service: 04/13/18 Chief Complaint: Constipation History of Present Illness: This is a 37-year-old female that presents with constipation. She has not had a bowel movement for 3-1/2 weeks. She reports increasing nausea and vomiting over the past couple days. She was seen in this emergency department several days ago for the same complaint. She was admitted and tried GoLYTELY, enemas, and suppositories, but continues to not have a bowel movement. She has been drinking MiraLAX, 2-3 capfuls per day but still has not had a bowel movement. She does have a history of constipation and neurogenic bowel and bladder. She has spina bifida and gets frequent urinary infections. Physical Examination: Afebrile and vital signs unremarkable. Patient appears uncomfortable but is not toxic or in distress. She is tearful. Abdomen is diffusely tender, but more so in the lower abdomen with light touch. CVAs also tender bilaterally with light touch. Skin appears normal. Test Results: Laboratory studies unremarkable. Urinalysis shows signs of a UTI. She caths and always has abnormal findings. She had a most recent culture that showed mixed growth fred. I did send a culture, but have low suspicion for infection. test was negative. CT showed thick bladder with dilated collecting system, she has this chronically. Emergency Department Course and Treatment: Patient was treated with fluids, morphine, and Zofran while awaiting results. I initially discussed her case with Dr. Josue. He recommended that if she is not having a bowel movement she will likely need admission for medical therapy until she does have a bowel movement. He also advised rechecking a CAT scan. Workup was all fairly unremarkable. She did not have a large amount of constipation. I spoke with Dr. Chung who knew her from her previous admission. We reviewed her testing and it all seems to be chronic for her. She did not feel that the patient needed admitted. She spoke with Dr. Josue who recommended medical treatment at home. She also recommended this and she recommended continuing MiraLAX, adding GoLYTELY, mineral oil, and senna/docusate. Patient will be referred to outpatient follow-up Dr. Josue. Treatment Plan: As above Disposition: Discharged Impression: 1. Constipation This note was generated with [employer] software. It may contain incorrect words, spelling, and punctuation that were not noted in review of the chart prior to signing ED Disposition - Plan for ED Patient: Chief Complaint: Constipation Referrals: Will Shukla MD [Primary Care Provider] -
[2018-04-13 18:48] VITALS: BMI 43.0
--- NOTE | 2018-04-13 19:35 | ED.DEP ---
ED Disposition - Plan for ED Patient: Chief Complaint: Constipation Instructions: ED Constipation Prescriptions: Mineral Oil 30 ml PO DAILY #420 ml Peg 3350/Na Sulf,Bicarb,Cl/KCl [Golytely Solution] 17 g PO DAILY 14 Days #1 unit Sennosides/Docusate Sodium [Senna-Docusate Sodium Tablet] 2 ea PO BID #56 tab Referrals: Nemesio Josue MD [STAFF PHYSICIAN] -
[2018-04-13 20:14] VITALS: BP 112/65; PULSE 63; RESP 17; O2SAT 98
== END 2018-04-13 20:19 | disposition home or self-care (01) ==
PROVIDERS: Emergency Provider Emergency Medicine; Family Provider Family Medicine; PCP Family Medicine
DX: K59.00 Constipation, unspecified (principal); Q05.9 Spina bifida, unspecified; R11.2 Nausea with vomiting, unspecified; R10.9 Unspecified abdominal pain; E11.9 Type 2 diabetes mellitus without complications; K59.2 Neurogenic bowel, not elsewhere classified
CPT/HCPCS: 74177; 80053; 81001; 83690; 84703; 85025; 87086; 87088; 96361; 96374; 96375; 99284; J7030; Q9967; A4216; J2405

== ENCOUNTER 2018-04-14 14:29 | Emergency (ER) | payer MEDICARE, MEDICAID, SELFPAY ==
[2018-04-13 15:11] VITALS: BMI 43.0
[2018-04-14 14:29] VITALS: BP 162/77; PULSE 93; RESP 22; TEMP 36.2; O2SAT 98; BMI 43.0
[2018-04-14 14:50] VITALS: BP 141/125; PULSE 93; RESP 18; O2SAT 97
--- NOTE | 2018-04-14 15:04 | ED.RN ---
PT REQUEST A VISIT FROM CASE MANAGEMENT. ORDER PLACED. NOT CURRENTLY IN FACILITY. Clara ANDREW, RN [phone]
--- NOTE | 2018-04-14 15:16 | ED.VISSUMM ---
- ER Visit Summary Date of Service: 04/14/18 Chief Complaint: Dysuria, frequency, flank pain History of Present Illness: The patient is a 37 F worsening right flank pain over 3 days. States neurogenic bladder self caths. States had chills and sweats. States been having nausea and vomiting for the past week. Patient's been seen multiple times in the ED in this past week for constipation. States had a bowel movement today with a bowel regimen treatment yesterday. She is a diabetic. She has history of spinal bifida. Denies history of gastric ulcers or kidney injury. Records reviewed, stable labs yesterday, she had urine that did show infection however culture is shown contaminated specimens. White count was trending down from old labs. Physical Examination: General: Alert and oriented ?3, mild distress HEENT: Normocephalic, atraumatic. Moist mucosa membranes Neck: supple, nontender. Cardiovascular: Regular rate and rhythm, no murmurs Respiratory: Normal breath sounds, symmetric, no distress Abdomen: Soft, nontender, nondistended Back: Right CVA tenderness, no rash Extremities: Nontender, no edema, pulses intact ?4 Neuro: no focal neurological deficits. Test Results: White count 12.9. Hemoglobin 13.3. Creatinine 1.04. Urine cath five-point leukocytes, WBCs 50-103+ bacteria. Urine culture sent and pending. Emergency Department Course and Treatment: Patient vital signs stable, left CVA tenderness no rash. Patient with a CT yesterday with no signs of Efraín. She complains of urine symptoms. I did check labs white count slightly elevated compared to yesterday a cath urine obtained due to contamination yesterday does show infection she is symptomatic should urine culture sent she started on Rocephin. She given Toradol Zofran additional Benadryl due to itching was given. Discussed with patient findings and treatment due to flank pain will treat for 10 days. She does have antiemetics at home. Additional ibuprofen will be written. Discussed avoiding opiates or stronger pain medicine due to her recent constipation history. Patient understands. She has a urologist with [facility]. Treatment Plan: [] Disposition: Discharge Impression: 1. Urinary tract infection 2. Left flank pain This note was generated with [employer] Analyticsation software. It may contain incorrect words, spelling, and punctuation that were not noted in review of the chart prior to signing ED Disposition - Plan for ED Patient: Disposition: Home or Assisted Living Chief Complaint: Flank Pain Diagnosis: Urinary tract infection, Left flank pain Instructions: ED Kidney Infec Female Prescriptions: Cephalexin [Keflex] 500 mg PO Q12 #20 capsule Ibuprofen 600 mg PO 4X/DAY PRN #20 tablet PRN Reason: Pain Referrals: Will Shukla MD [Primary Care Provider] - 3-5 Days Additional Instructions: Follow up with your urologist in 3-5 days
[2018-04-14] MEDS: 0.9% Normal Saline 1,000 ML 1000 ML IV (15:25)
[2018-04-14] MEDS: Ondansetron 4 MG/2 ML Vial IV (15:27)
[2018-04-14] MEDS: Ketorolac 30 MG/ML Syringe IV (15:28)
[2018-04-14 15:38] LABS: Absolute Lymphocyte Count 1.66 X10^3/ul (0.83-4.51); Absolute Neutrophil Count 9.5 X10^3/uL (2.0-7.7); Basophil# 0.05 X10^3/uL; Basophil% 0.4 % (0-1); Eosinophil# 0.44 X10^3/uL; Eosinophils% 3.4 % (0-5); Hematocrit 41.1 % (37-47); Hemoglobin 13.3 g/dl (12.0-15.0); Lymphocyte # 1.66 X10^3/ul (4.0); Lymphocyte % 12.8 % (19-41); Mean Corp Hgb Conc 32.4 g/gl (32-36); Mean Corpuscular Hgb 30.1 pg (27.0-32.0); Mean Platelet Vol. 11.2 fl (6.2-12.0); Monocyte# 1.22 X10^3/uL; Monocyte% 9.4 % (0-10); Neutrophil # 9.51 X10^3/uL (2.7-7.7); Neutrophil % 73.5 % (47-70); Platelet Count 175 K/mm3 (150-450); RBC Distribution Width CV 13.4 % (11.6-14.6); RBC Distribution Width SD 45.6 fl (35.1-43.9); Red Blood Count 4.42 M/mm3 (4.2-5.4); White Blood Count 12.9 K/mm3 (4.4-11.0)
[2018-04-14 15:39] LABS: POSITIVE COUNT NO; POSITIVE DIFFERENTIAL NO; POSITIVE MORPHOLOGY NO
--- NOTE | 2018-04-14 15:50 | ED.RN ---
PT WAS GIVEN IV ZOFAN. SHE DEVELOPED 5 HIVES OVERTOP VAIN WHERE MEDICATION WAS GIVEN. NO S/S OF RESPIRATORY DISTRESS. DR INFORMED. VERBAL ORDER FOR BENADRYL OBTAINED. Clara ANDREW RN [phone]
[2018-04-14 15:53] LABS: Anion Gap 10 (5-15); BUN 9 mg/dL (7-18); BUN/Creat Ratio 8.7 RATIO (10-20); Calcium,Total 9.2 mg/dL (8.5-10.1); Chloride 105 mmol/L (98-107); Creatinine, Serum 1.04 mg/dL (0.55-1.02); EST Glomerular Filtration Rate 64 mL/min (>60); Est Glom Filt Rate - Afr Amer 77 mL/min (>60); Estimated Creatinine Clearance 59.15 ml/min; Glucose 163 mg/dL (74-106); Potassium 4.1 mmol/L (3.5-5.1); Sodium Level 139 mmol/L (136-145)
[2018-04-14] MEDS: DiphenhydrAMINE 50 MG/ML Syringe 25 MG IV (15:57)
[2018-04-14 16:50] LABS: Mucous, Urine 0 SEEN /hpf (<or=2+); Red Blood Cells-Urine 0 SEEN /hpf (0-5); Squamous Epithelial Cells - UA 0 SEEN /hpf (5-10)
[2018-04-14 16:56] VITALS: BP 137/82; PULSE 71; RESP 16; O2SAT 100
[2018-04-14 17:07] LABS: Color, Urine Yellow (Yellow); Glucose, Dipstick 50 mg/dl (Normal); Ketone-Dipstick Negative (Negative); Leukocyte Esterase-Dipstick 500 /ul (Negative); Nitrite-Dipstick Negative (Negative); Occult Blood-Urine 250 /ul (Negative); Protein-Dipstick 100 mg/dl (Negative); Specific Gravity, Urine 1.015 (1.002-1.030); Urine Bilirubin Dipstick Negative (Negative); Urine Clarity Cloudy (Clear); Urine Urobilinogen Normal (Normal)
[2018-04-14 17:38] LABS: White Blood Cells 50-100 SEEN /hpf (0-5)
[2018-04-14 17:39] LABS: Bacteria 3+ /hpf (None Seen)
[2018-04-14 18:21] VITALS: BP 127/63; PULSE 71; RESP 16; O2SAT 97
== END 2018-04-14 18:23 | disposition home or self-care (01) ==
PROVIDERS: Emergency Provider Emergency Medicine; Family Provider Family Medicine; PCP Family Medicine
DX: N39.0 Urinary tract infection, site not specified (principal); R10.9 Unspecified abdominal pain; K59.00 Constipation, unspecified; E11.9 Type 2 diabetes mellitus without complications; Q05.9 Spina bifida, unspecified; Z87.442 Personal history of urinary calculi
CPT/HCPCS: 80048; 81001; 85025; 87077; 87086; 87088; 87186; 99285; J7030; J7050; P9612; A4216; J2405

== ENCOUNTER 2018-04-23 17:37 | Emergency (ER) | payer MEDICARE, MEDICAID, SELFPAY ==
[2018-04-23 17:38] VITALS: BP 131/95; PULSE 92; RESP 18; TEMP 36.4; O2SAT 98; BMI 42.9
--- NOTE | 2018-04-23 18:50 | RAD_ITS ---
STUDY: X-RAY - LEFT FOOT CLINICAL: Female, 37 years old. Foot wound TECHNIQUE: 3 view(s) of the foot. COMPARISON: None. 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 There is no evidence of fracture or dislocation. There are no radiodense foreign bodies. There are no definite radiographic findings of osteomyelitis. RAD/Foot min 3 Views IMPRESSION: No definite radiographic findings of osteomyelitis. If indicated, further evaluation with MRI can be performed. No fracture or dislocation. 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 Electronically Signed: Alexander Peck, at 19:13 EST Tel , Service support ,
--- NOTE | 2018-04-23 19:19 | ED.DCSUM_ITS ---
- ER Visit Summary Date of Service: 04/23/18 Chief Complaint: Left first toe infection History of Present Illness: The patient is a 37 F with history of spina bifida and neuropathy presents with left first toe infection. Patient states that on Monday, she noted some drainage from the distal aspect of her left great toe. She states that it was mildly painful. She states that she has diminished sensation at baseline, but noticed that there was drainage. She states that her pain had increased. She called her computer education professor today and was referred to the emergency room. The patient does have history of prior osteomyelitis of the left foot. She states at that time, she had much more pain and there was redness and streaking up her leg. She states that this seems all be contained within the nail. Physical Examination: Exam is relatively unremarkable. Patient does have a smal l aspect of ingrown nail on the medial aspect of the left great toe. There is no streaking or cellulitis. There is some dried drainage, but no bleeding. She really has no tenderness to palpation. There is no fluctuance. Her pulses are normal. Test Results: [] Emergency Department Course and Treatment: I did obtain plain films. My suspicion is the patient likely has ingrown toenail here. The patient has only had symptoms for 2 or 3 days. She has follow-up with her computer education professor tomorrow. At this time, I do not suspect osteomyelitis or deep space infection. This is all superficial. I counseled the patient on warm soaks. With her history of MRSA, I am going to cover her with Bactrim and will also add Cipro to cover Pseu domonas. She is not febrile. She is very well-appearing. There is no streaking. There is no pain out of proportion. I do feel that she is safe for outpatient follow-up. Patient is comfortable with this plan of care and she will be discharged. Treatment Plan: [] Disposition: Discharge Impression: 1. Ingrown toenail left foot This note was generated with [employer] dictation software. It may contain incorrect words, spelling, and punctuation that were not noted in review of the chart prior to signing ED Disposition - Plan for ED Patient: Chief Complaint: Wound Check Instructions: ED Toenail Ingrown Infec Abx Onl Prescriptions: Ciprofloxacin [Cipro] 500 mg PO BID #14 tab Smz/Tmp Ds [Bactrim Ds] 1 tab PO BID #14 tab Referrals: Will Shukla MD [Primary Care Provider] -
[2018-04-23] MEDS: Ciprofloxacin 500 MG Tablet PO (19:46)
[2018-04-23] MEDS: Smz/Tmp Ds Tablet 1 TABLET PO (19:46)
[2018-04-23 19:47] VITALS: BP 129/84; PULSE 91; RESP 20; O2SAT 99
--- NOTE | 2018-04-23 19:47 | ED.RN ---
THIS NURSE REVIEWED D/C INSTRUCTIONS WITH PT. PT VERBALIZED UNDERSTANDING OF INSTRUCTIONS. PT DENIES FURTHER NEEDS OR QUESTIONS AT THIS TIME. PT AMBULATES FROM ROOM ON OWN WITHOUT ASSISTANCE FROM STAFF
--- OUTSIDE RECORDS SUMMARY | 2018-06-05 16:45 | XMS RPT_ITS ---
:1980 Author Organization OHIP Support Name Relationship Address Phone MEHDI BAILON Unavailable [address] + [place] [address] D Unavailable Unavailable Unavailable BENJIE WOLF Unavailable [address] + [place] [address] UVALDO MEHDI Unavailable [address] + [place] [address] D Unavailable Unavailable Unavailable BENJIE WOLF Unavailable [address] + [place] [address] UVALDO, MEHDI Unavailable [address] + [place] [address] D Unavailable Unavailable Unavailable BENJIE WOLF Unavailable [address] + [place] [address] UVALDO, MEHDI Unavailable [address] + [place] [address] D Unavailable Unavailable Unavailable BENJIE WOLF Unavailable [address] + [place] [address] UVALDO, MEHDI Unavailable [address] + [place] [address] D Unavailable Unavailable Unavailable BENJIE WOLF Unavailable [address] + [place] [address] UVALDO, MEHDI Unavailable [address] + [place] [address] D Unavailable Unavailable Unavailable BENJIE WOLF Unavailable [address] + [place] [address] UVALDO, MEHDI Unavailable [address] + [place] [address] D Unavailable Unavailable Unavailable BENJIE WOLF Unavailable [address] + [place] [address] UVALDO, MEHDI Unavailable [address] + [place] [address] D Unavailable Unavailable Unavailable GRASKEAGANLEONELBENJIE Unavailable [address] + [place] [address] UVALDO, MEHDI Unavailable [address] + [place] [address] D Unavailable Unavailable Unavailable LUCIANOLEONELBENJIE Unavailable [address] + [place] [address] UVALDO, MEHDI Unavailable [address] + [place] [address] D Unavailable Unavailable Unavailable GRASERLEONELBENJIE Unavailable [address] + [place] [address] UVALDO, MEHDI Unavailable [address] + [place] [address] D Unavailable Unavailable Unavailable LUCIANOLEONELBENJIE Unavailable [address] + [place] [address] UVALDO, MEHDI Unavailable [address] + [place] [address] D Unavailable Unavailable Unavailable LUCIANOLEONELBENJIE Unavailable [address] + [place] [address] UVALDO, MEHDI Unavailable [address] + [place] [address] D Unavailable Unavailable Unavailable LUCIANOLEONELBENJIE Unavailable [address] + [place] [address] UVALDO, MEHDI Unavailable [address] + [place] [address] D Unavailable Unavailable Unavailable LUCIANOLEONELBENJIE Unavailable [address] + [place] [address] UVALDO, MEHDI Unavailable [address] + [place] [address] D Unavailable Unavailable Unavailable LUCIANOLEONELBENJIE Unavailable [address] + [place] [address] UVALDO, MEHDI Unavailable Unavailable + UVALDO MEHDI Unavailable Unavailable + UVALDO, MEHDI Unavailable [address] + [place] [address] D Unavailable Unavailable Unavailable GRASERLEONELBENJIE Unavailable [address] + [place] [address] UVALDO, MEHDI Unavailable [address] + [place] [address] D Unavailable Unavailable Unavailable GRASER, BENJIE Unavailable [address] + [place] [address] UVALDO, MEHDI Unavailable [address] + [place] [address] D Unavailable Unavailable Unavailable GRASERLEONELBENJIE Unavailable [address] + [place] [address] UVALDO, MEHDI Unavailable [address] + [place] [address] D Unavailable Unavailable Unavailable UVALDO, MEHDI Unavailable [address] + [place] [address] D Unavailable Unavailable Unavailable UVALDO, MEHDI Unavailable [address] + [place] [address] D Unavailable Unavailable Unavailable UVALDO, MEHDI Unavailable [address] + [place] [address] D Unavailable Unavailable Unavailable UVALDO, MEHDI Unavailable [address] + [place] [address] D Unavailable Unavailable Unavailable UVALDO, MEHDI Unavailable [address] + [place] [address] D Unavailable Unavailable Unavailable UVLADO, MEHDI Unavailable [address] + [place] [address] D Unavailable Unavailable Unavailable D Unavailable Unavailable Unavailable UVALDO, MEHDI Unavailable [address] + [place] [address] D Unavailable Unavailable Unavailable MARGARET GODOYOTHY Unavailable [address] + [place] [address] UVALDO, MEHDI Unavailable [address] + [place] [address] D Unavailable Unavailable Unavailable WALT ELIZABETH Unavailable [address] + [place] [address] UVALDO, MEHDI Unavailable [address] + [place] [address] D Unavailable Unavailable Unavailable GODOY, ELIZABETH Unavailable [address] + [place] [address] UVALDO, MEHDI Unavailable [address] + [place] [address] D Unavailable Unavailable Unavailable GODOY, ELIZABETH Unavailable [address] + [place] [address] UVALDO, MEHDI Unavailable [address] + [place] [address] D Unavailable Unavailable Unavailable GODOY, ELIZABETH Unavailable [address] + [place] [address] UVALDO, MEHDI Unavailable [address] + [place] [address] UVALDO, MEHDI Unavailable [address] + [place] [address] D Unavailable Unavailable Unavailable GODOY, ELIZABETH Unavailable [address] + [place] [address] UVALDO, MEHDI Unavailable [address] + [place] [address] D Unavailable Unavailable Unavailable GODOY, ELIZABETH Unavailable [address] + [place] [address] UVALDO, MEHDI Unavailable [address] + [place] [address] D Unavailable Unavailable Unavailable GODOY, ELIZABETH Unavailable [address] + [place] [address] UVALDO, MEHDI Unavailable [address] + [place] [address] D Unavailable Unavailable Unavailable GODOY, ELIZABETH Unavailable [address] + [place] [address] UVALDO, MEHDI Unavailable [address] + [place] [address] D Unavailable Unavailable Unavailable GODOY, ELIZABETH Unavailable [address] + [place] [address] UVALDOADAL CORRIGANCK Unavailable [address] + [place] [address] D Unavailable Unavailable Unavailable GODOY, ELIZABETH Unavailable [address] + [place] [address] UVALDOADALCK Unavailable [address] + [place] [address] D Unavailable Unavailable Unavailable GODOY, ELIZABETH Unavailable [address] + [place] [address] UVALDOADAL CORRIGANCK Unavailable [address] + [place] [address] D Unavailable Unavailable Unavailable GODOY, ELIZABETH Unavailable [address] + [place] [address] UVALDOADAL CORRIGANCK Unavailable [address] + [place] [address] D Unavailable Unavailable Unavailable GODOY, ELIZABETH Unavailable [address] + [place] [address] UVALDOADAL CORRIGANCK Unavailable [address] + [place] [address] D Unavailable Unavailable Unavailable GODOY, ELIZABETH Unavailable [address] + [place] [address] UVALDOADALCK Unavailable [address] + [place] [address] D Unavailable Unavailable Unavailable GODOY, ELIZABETH Unavailable [address] + [place] [address] Care Team Providers Name Role Phone Will Dietz Attending Unavailable Will Dietz Primary Care Unavailable Will Dietz Attending Unavailable Will Dietz Referring Unavailable Will Dietz Primary Care Unavailable Will Dietz Primary Care Unavailable Celine Caputo Attending Unavailable Will Dietz Primary Care Unavailable Dre Deal Attending Unavailable Nemesio Barriga Attending Unavailable Will Dietz Referring Unavailable Will Dietz Primary Care Unavailable Bobby Lee Attending Unavailable Mirela, Will Primary Care Unavailable Terrence Ramon Attending Unavailable Rojas Oates Attending Unavailable Mirela, Will Referring Unavailable Mirela, Will Attending Unavailable Jayson Alvarez Referring Unavailable Mirela, Will Primary Care Unavailable Nemesio Sanderson Attending Unavailable Mirela, Will Primary Care Unavailable Arnold Caban Attending Unavailable Le, Arnold Referring Unavailable Mirela, Will Primary Care Unavailable Will Barcenas Attending Unavailable Mirela, Will Primary Care Unavailable Celine Caputo Attending Unavailable Mirela, Will Primary Care Unavailable Taya Wong Attending Unavailable Mina Desai Admitting Unavailable Mirela, Will Primary Care Unavailable Celine Boateng Attending Unavailable Mirela, Will Primary Care Unavailable Deal, Dre Attending Unavailable Deal, Dre Referring Unavailable Mirela, Will Primary Care Unavailable Jayson Yost Attending Unavailable Nemesio Josue Attending Unavailable Mirela, Will Referring Unavailable Mirela, Will Primary Care Unavailable Mirela, Will Primary Care Unavailable Nemesio Pro Attending Unavailable Nemesio Josue Attending Unavailable Mirela, Will Referring Unavailable Mirela, Will Primary Care Unavailable Nemesio Josue Attending Unavailable Mirela, Will Primary Care Unavailable Lionel Josueel Referring Unavailable Mirela, Will Primary Care Unavailable Jayson Yost Attending Unavailable Nemesio Josue Attending Unavailable Mirela, Will Referring Unavailable Mirela, Will Primary Care Unavailable Celine Fung Attending Unavailable Celine Fung Referring Unavailable Mirela, Will Primary Care Unavailable Mirela, Will Primary Care Unavailable Irvin Goldberg Attending Unavailable Mirela, Will Primary Care Unavailable Josue Shaw Attending Unavailable Mirela, Will Primary Care Unavailable Nemesio Sanderson Attending Unavailable Mirela, Will Primary Care Unavailable Deal, Dre Attending Unavailable Mirela, Will Primary Care Unavailable Arnold Caban Attending Unavailable Mirela, Will Primary Care Unavailable Oni Dunlap Attending Unavailable Mirela, Will Primary Care Unavailable Kristen Ohara Attending Unavailable Mirela, Will Primary Care Unavailable Kristen Ohara Attending Unavailable Celine Fung Attending Unavailable FungCeline Referring Unavailable Mirela, Will Primary Care Unavailable Mirela, Will Primary Care Unavailable Kristen Ohara Attending Unavailable Mirela, Will Primary Care Unavailable Paintsil, Chevak Admitting Unavailable ShashankReymundo Attending Unavailable Libia, Doug Consulting Unavailable Paintsil, Chevak Admitting Unavailable Mirela, Will Primary Care Unavailable Paintsil, Chevak Consulting Unavailable Paintsil, Chevak Attending Unavailable Paintsil, Chevak Admitting Unavailable Jopperi, Reymundo Attending Unavailable Mirela, Will Primary Care Unavailable Libia, Doug Consulting Unavailable Jopperi, Reymundo Consulting Unavailable Mirela, Will Primary Care Unavailable Nemesio Pro Attending Unavailable Mirela, Will Primary Care Unavailable Arnold Caban Attending Unavailable Mirela, Will Primary Care Unavailable Celine Boateng Attending Unavailable Mirela, Will Primary Care Unavailable Nemesio Sanderson Attending Unavailable TESTRAKE, GAVIN Attending Unavailable TESTRAKE, GAVIN Referring Unavailable MIRELAWILL A Attending Unavailable MIRELA WILL A Referring Unavailable TESTRAKE, GAVIN Attending Unavailable TESTRAKE, GAVIN Referring Unavailable MIRELA WILL A Referring Unavailable TESTRAKE, GAVIN Attending Unavailable TESTRAKE, GAVIN Referring Unavailable MIRELA, WILL A Attending Unavailable MIRELA, WILL A Referring Unavailable MIRELA, WILL A Referring Unavailable MIRELA, WILL A Referring Unavailable MIRELA, WILL A Referring Unavailable MIRELA, WILL A Referring Unavailable NETTA HIGGINS (PA) Attending Unavailable MIRELAKEVINWILL A Attending Unavailable MIRELA, WILL A Referring Unavailable MIRELA, WILL A Referring Unavailable ABBE MILLAN (BRIM SHAPER) Attending Unavailable MIRELA, WILL A Referring Unavailable MIRELA, WILL A Referring Unavailable MIRELA, WILL A Attending Unavailable MIRELA, WILL A Referring Unavailable MIRELA, WILL A Referring Unavailable FAWN COYNE Attending Unavailable MARIANA CORDERO Referring Unavailable KEVIN OSORIO Attending Unavailable MEGAN AMADOR (CNM) Referring Unavailable TESTRAKE, GAVIN Referring Unavailable TESTRAKE, GAVIN Referring Unavailable TESTRAKE, GAVIN Attending Unavailable TESTRAKE, GAVIN Referring Unavailable MEGAN AMADOR (CNM) Referring Unavailable MEGAN AMADOR (CNM) Attending Unavailable MIRELA, WILL A Referring Unavailable TESTRAKE, GAVIN Referring Unavailable TESTRAKE, GAVIN Referring Unavailable TESTRAKE, GAVIN Attending Unavailable MIRELA, WILL A Referring Unavailable MIRELA, WILL A Attending Unavailable MIRELA, WILL A Referring Unavailable MIRELA, WILL A Referring Unavailable MIRELA, WILL A Referring Unavailable ABBE MILLAN (BRIM SHAPER) Attending Unavailable ABEB MILLAN (BRIM SHAPER) Referring Unavailable ALI, NOAMAN Attending Unavailable FAWN COYNE Referring Unavailable ALI, NOAMAN Referring Unavailable ALI, NOAMAN Admitting Unavailable ALI, NOAMAN Attending Unavailable ALI, NOAMAN Referring Unavailable ANNAMARIA PETERSEN Attending Unavailable ALI, NOAMAN Attending Unavailable ALI, NOAMAN S Attending Unavailable Fawn Coyne Referring Unavailable Mirela, Will A Primary Care Unavailable ALI, NOAMAN S Referring Unavailable Mirela, Will A Primary Care Unavailable ALI, NOAMAN S Admitting Unavailable ALI, NOAMAN S Attending Unavailable Mirela, Will A Primary Care Unavailable ALI, NOAMAN S Referring Unavailable ALI, NOAMAN S Attending Unavailable IMCA Referring Unavailable Mirela, Will A Primary Care Unavailable Mirela, Will A Primary Care Unavailable ANNAMARIA PETERSEN Attending Unavailable REYMUNDO SERNA Attending Unavailable MIRELA, WILL A Referring Unavailable MIRELA, WILL A Primary Care Unavailable JEZ NG MD Attending Unavailable PHYSICIAN, NONE Primary Care Unavailable PROBLEMS PROBLEMS DATE TYPE CONDITION / CODE ATTENDING STATUS SOURCE 04/24/2018 Unknown L60.0 - Ingrowing Nemesio Sanderson Active [facility] nail / L60.0(ICD-10) [facility] 03/15/2018 Active Unknown / NA Active [facility] UNK(Unknown) [facility] Main [place] Repository 03/03/2018 Unknown E11.9 - Type 2 Deal, Dre Active [facility] diabetes mellitus [facility] without Hospital complications / Repository E11.9(ICD-10) 03/03/2018 Unknown Q05.7 - Lumbar spina Deal, Dre Active [facility] bifida without Community hydrocephalus / Hospital Q05.7(ICD-10) Repository 03/03/2018 Unknown S30.0XXA - Contusion Deal, Dre Active [facility] of lower back and Community pelvis, initial Hospital encounter / Repository S30.0XXA(ICD-10) 04/17/2018 Unknown Q05.9 - Spina Fung, Active [facility] bifida, unspecified [facility] / Q05.9(ICD-10) Hospital Repository 10/18/2016 Active Type 2 diabetes NA Active [facility] mellitus with other Clinic Main diabetic kidney [place] complication / Repository E11.29(ICD-10) 10/18/2016 Active Proteinuria, NA Active [facility] unspecified / Clinic Main R80.9(ICD-10) [place] Repository 01/23/2018 Unknown 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, 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 [facility]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 / Hospital E04.1(ICD-10) Repository 01/01/2018 Active Nontoxic single NA Active [facility] thyroid nodule / Clinic Main E04.1(ICD-10) [place] Repository 12/26/2017 Active Contusion of PETERSEN, Active [facility] abdominal wall, ANNAMARIA ADLER Clinic Other initial encounter / [place] S30.1XXA(ICD-10) Repository 12/24/2017 Unknown R10.819 - Abdominal Cornici, Jayson Active [facility] tenderness, Community unspecified site / Hospital R10.819(ICD-10) Repository 12/11/2017 Active Other specified ALI NOAMAN Active [facility] postprocedural Clinic Other states / [place] Z98.890(ICD-10) Repository 12/11/2017 Active Personal history of ALIANNE Active [facility] other diseases of Clinic Other the digestive system [place] / Z87.19(ICD-10) Repository 05/04/2016 Active Tubulo-interstitial NA Active [facility] nephritis, not Clinic Main specified as acute [place] or chronic / Repository N12(ICD-10) 12/25/2013 Active Urinary tract NA Active [facility] infection, site not Clinic Main specified / [place] N39.0(ICD-10) Repository 10/17/2017 Active Incisional hernia SERGE NOHUMA Active [facility] with obstruction, Clinic Other without gangrene / [place] K43.0(ICD-10) Repository 10/17/2017 Admitting Unknown / ANNE CHRISTENSEN S Active [facility] UNK(Unknown) [facility] Repository 10/10/2017 Active Type 2 diabetes NA Active [facility] mellitus without Clinic Main complications / [place] E11.9(ICD-10) Repository 08/04/2017 Active Non-pressure chronic NA Active [facility] ulcer of other part Clinic Main of left foot with [place] fat layer exposed / Repository L97.522(ICD-10) 08/04/2017 Active Type 2 diabetes NA Active [facility] mellitus with other Clinic Main diabetic [place] neurological Repository complication / E11.49(ICD-10) 07/28/2017 Active Excessive and NA Active [facility] frequent Clinic Main menstruation with [place] irregular cycle / Repository N92.1(ICD-10) 07/28/2017 Active Irregular NA Active [facility] menstruation, Clinic Main unspecified / [place] N92.6(ICD-10) Repository 08/11/2017 Unknown R07.89 - Other chest MirelaDonnie pain / [facility] R07.89(ICD-10) Hospital Repository 06/02/2017 Active Palpitations / NA Active [facility] R00.2(ICD-10) [facility] Main [place] Repository 06/02/2017 Active Myalgia / NA Active [facility] M79.1(ICD-10) Clinic Main [place] Repository 06/02/2017 Active Other general NA Active [facility] symptoms and signs / [facility] Main R68.89(ICD-10) [place] Repository PROCEDURES PROCEDURES No Procedure Records FoundRESULTS RESULTS EMERGENCY DEPARTMENT Observed: 05/11/2018 Status: F Source: [place] SUMMARY 12:18 PM [facility] REPOSITORY [facility] Medical Records Department [address] [place] [address] Emergency Department Summary 05/11/18 1140 MR#: [id number] Acct: [id number] Name: DEBBY BAILON Rep #: [id number] : 1980 37 From: Terrence Ramon MD PCP: Will Dietz MD Status: REG ER - ER Visit Summary Date of Service: 05/11/18 Chief Complaint: Dysuria History of Present Illness: The patient is a 37 F who presents with dysuria. It started yesterday. Patient had a recent GI illness and was having a lot of diarrhea. After that she started having urinary symptoms. She states she has had numerous UTIs and bladder infections in the past. She is a diabetic and her blood sugars have been elevated. Her BG T this morning was 350 Physical Examination: Vital signs reviewed. HEENT exam unremarkable. Heart is regular rate and rhythm without murmurs. Lungs are clear to auscultation. Abdomen is soft and nontender. Extremities reveal no edema. Skin exam normal. Neurologic exam normal. Test Results: Urinalysis negative for infection. HCG negative Emergency Department Course and Treatment: Patient then said she had a headache so she was given Toradol and Phenergan IM. She feels better. No evidence of infection. Patient will monitor her blood sugars at home and will follow up with her PCP Treatment Plan: [] Disposition: Discharge Impression: Dysuria, headache This note was generated with Conjectation software. It may contain incorrect words, spelling, and punctuation that were not noted in review of the chart prior to signing ED Disposition - Plan for ED Patient: Chief Complaint: Complaint Referrals: Will Dietz MD [Primary Care Provider] - What to do if you have Problems For any increased pain, shortness of breath, bleeding, nausea or vomiting, chest pain, or any unexpected problems, contact your Primary Care Provider. Call [facility] ([phone]) or report to the closest Emergency Room. Call 911 if necessary. 05/11/181217 <Electronically signed by Terrence Ramon MD> Date Terrence Ramon MD Cosigner Signature (If Indicated): Date CC: Will Dietz MD DISCHARGE INSTRUCTION Observed: 05/11/2018 Status: F Source: PATRIOT 12:18 PM [facility] REPOSITORY [facility] Medical Records Department [address] [place] [address] Discharge Instruction 05/11/181217 MR#: [id number] Acct: [id number] Name: DEBBY BAILON Rep #: [id number] : 1980 37 From: Terrence Ramon MD PCP: Will Dietz MD Status: REG ER ED Disposition - Plan for ED Patient: Disposition: Home or Assisted Living Chief Complaint: Complaint Instructions: ED Dysuria Uncertain Cause Referrals: Will Dietz MD [Primary Care Provider] - What to do if you have Problems For any increased pain, shortness of breath, bleeding, nausea or vomiting, chest pain, or any unexpected problems, contact your Primary Care Provider. Call [facility] ([phone]) or report to the closest Emergency Room. Call 911 if necessary. 05/11/181217 <Electronically signed by Terrence Ramon MD> Date Terrence Roman Signature (If Indicated): Date CC: Will Dietz MD URINALYSIS, COMPLETE Collected: 05/11/2018 Status: F Source: PATRIOT 11:45 AM [facility] REPOSITORY Order Comment: How was Urine Obtained? SUSTAINABILITY PROJECT COORDINATOR TO SPECIFY TYPE CODE TESTS RESULT OUT OF RANGE REFERENCE UNITS LAB L400.3000 Yellow COLOR Normal Yellow LAB L400.3050 Clear Normal CLARITY Clear LAB L400.3200 Normal mg/dl High GLUCOSE, UR 250 LAB L400.3300 Negative mg/dL Normal BILIRUBIN URINE Negative LAB L400.3400 Negative mg/dl Normal KETONE UR Negative LAB L400.3465 1.002-1.030 Normal SP.GR. DIPSTX 1.015 LAB L400.3550 5.0 - 8.0 pH UR Normal 6.5 LAB L400.3600 Negative mg/dl PROT Normal DIPSTX Negative LAB L400.3700 Normal mg/dl Normal UROBILI Normal LAB L400.3750 Negative Normal NITRITE UR Negative LAB L400.3780 Negative /ul Normal OCCULT BLOOD-UR Negative LAB L400.3800 Negative /ul LEUK Normal ESTERASE Negative LAB L400.4050 0-5 /hpf WBC Normal 0-5 SEEN LAB L400.4100 0-5 /hpf 0 Normal RBC-UA SEEN LAB L400.4150 5-10 /hpf SQUAM 0 Normal EPI SEEN LAB L400.4300 None Seen /hpf 0 Normal BACTERIA SEEN LAB L400.4350 <or=2+ /hpf 0 Normal MUCUS, URINE SEEN Performed By: #### L400.0001 #### [facility] [address] [place], [place], [address] ,URINE Collected: 05/11/2018 Status: F Source: PATRIOT 11:45 AM [facility] REPOSITORY TYPE CODE TESTS RESULT OUT OF REFERENCE UNITS RANGE LAB L400.8000 Negative Normal HCGUQUAL Negative Result Comment: Very dilute urine specimens, as indicated by a low specific gravity, may not contain sales and marketing representative levels of hCG. If is still suspected, a first morning urine specimen should be collected 48 hours later and tested. Performed By: #### L400.7600 #### [facility] [address] [place], [address] PROGRESS Observed: 05/09/2018 Status: COMPLETED Source: [place] 10:51 AM [facility] [place] REPOSITORY HNO ID: [id number] Author: Will Dietz Service: (none) Author Type: Physician Type: Progress Notes Filed: 05/09/2018 9:50 PM Note Text: Chief Complaint Patient presents with: Recheck: anxiety/ dysthmia HPI Debby Bailon is a 37 year old female who presents here today for Above Complaints.. At last visit buspar was added. Since then patient has noticed good improvement in symptoms. Is not having the anxiety like she had been and though she still has an occasional panic attack they are less frequent and less sever. Much more manageable. Past medical history, appointments, medications, allergies reviewed. Previous Medical History PAST MEDICAL HISTORY Diagnosis Date - Abnormal sensation of left upper and lower extremity 08/07/2013 - Anxiety - Arthritis started age 19 - Cervical radiculopathy 05/02/2013 - Chronic pain 02/12/2015 - Cyst of ovary 11/28/2011 - DJD (degenerative joint disease), thoracic - DM (diabetes mellitus), secondary, uncontrolled, w/renal complications ([facility]) 12/05/2017 - Dysthymic disorder Depression (non-psychotic), sees BRIM SHAPER at [facility]. 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 Seeing Dr. Gregg - Numbness and tingling of left arm and leg 08/07/2013 - Panic attacks - Paroxysmal SVT (supraventricular tachycardia) (HCC) 07/03/2017 Per 48 Hr event monitor 06/30/2017 - Primary insomnia 02/17/2016 - Spina bifida (HCC) 01/06/2016 - Thyroid cyst 01/01/2018 Complex right sided cysts. US 12/2017, biopsy per Dr. Josue 01/23/2018 benign. Repeat US in a year. 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 nl - DANDC, DIAG AND/OR THERAPEUTIC Dilation AND curettage - PAST SURGICAL HISTORY OF cholecystectomy - PAST SURGICAL HISTORY OF 09/2012 back surgery x2 - PAST SURGICAL HISTORY OF Left AND 02/2014 foot x2 - PAST SURGICAL HISTORY OF 07/2015 Knapp stoma - REPAIR UMBILICAL HERNIA 12/11/2017 - STRESS TEST 07/18/2017 normal - STRESS TEST 03/15/2018 negative Family History FAMILY HISTORY Problem Relation Age of Onset - Arthritis Mother - Diabetes Mother - Heart Mother - Hypertension Mother - Lipids Mother - Stroke Mother - Thyroid Mother - Cancer Father Skin - Cancer Maternal Grandmother LIVER CANCER - Cancer Maternal Uncle Great Uncle - Cancer Maternal Uncle Great Uncle Patient Allergies ALLERGIES Allergen Reactions - Mushroom Anaphylaxis - Peanuts Anaphylaxis - Mri Contrast [Gadol* GI Upset Current Medications Current Outpatient Prescriptions on File Prior to Visit: atorvastatin (LIPITOR) 10 mg tablet Take 1 tablet by mouth once daily. blood sugar diagnostic (ACCU-CHEK SMARTVIEW TEST STRIP) test strip Test blood sugar(s) 2 times daily. Dx: Other DM Code E13.29 Insulin: No Blood-Glucose Meter (ACCU-CHEK ANISH) [facility] [place] meter kit. Dx: Other DM Code E13.29 busPIRone (BUSPAR) 15 mg tablet Take 1/2 a tab by mouth twice a day for 2 weeks than one twice a day. COMPOUNDED PRESCRIPTION Stoma catheter tube.DX: Qo5.4 and K59.2 DULoxetine (CYMBALTA) 60 mg capsule Take 1 capsule by mouth once daily. fluticasone (FLONASE) 50 mcg/actuation nasal spray Use 2 Sprays in each nostril once daily. Rinse mouth after use. HYDROcodone-acetaminophen (NORCO) 5-325 mg per tablet Take 1 tablet by mouth every 6 hours as needed. hydrOXYzine pamoate (VISTARIL) 25 mg capsule Take 1 capsule by mouth three times daily as needed. [facility] Insulin [place], Disposable, 32 gauge x 5/16 ndle Use once daily with Victoza Lancets (ACCU-CHEK FASTCLIX) lancets Test blood sugar 2 times/day. Dx: Other DM Code E13.29 Insulin Use: No liraglutide (VICTOZA) 0.6 mg/ 0.1 ml subcutaneous pen injector Inject 0.6 mg subcutaneously once daily. After one week increase to 1.2mg daily lisinopril 2.5 mg tablet Take 1 tablet by mouth once daily. loratadine (CLARITIN) 10 mg tablet Take 1 tablet by mouth once daily. metFORMIN ER (GLUCOPHAGE XR) 500 mg 24 hr tablet Take 2 tablets by mouth twice daily. oxybutynin ER (DITROPAN XL) 10 mg 24 hr tablet Take 1 tablet by mouth once daily. polyethylene glycol 3350 (MIRALAX) 17 gram/dose powder Take 17 g by mouth once daily. pregabalin (LYRICA) 25 mg capsule Take 1 capsule by mouth once daily. Per Neurology Dr. Calix propranolol (INDERAL) 10 mg tablet Take 1 tablet by mouth twice daily. pseudoephedrine HCl 30 mg CsTR Take 1-2 tablets by mouth every 6 hours as needed. zolpidem (AMBIEN) 10 mg tab Take 1 tablet by mouth as needed. No current facility-administered medications on file prior to visit. 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 General Appearance: Well appearing, alert, in no acute distress, well-hydrated, well nourished. and Morbidly obese. Lungs: lungs clear to auscultation. No wheezing, rhonchi, rales. Heart: RRR without murmur, gallop, or rubs. No ectopy. Health Maintenance List DILATED RETINAL EXAM due on 01/25/2018 HBA1C due on 05/15/2018 STATIN MED ADHERENCE due on 05/29/2018 DIABETES MED ADHERENCE due on 05/29/2018 LDL CHOLESTEROL due on 02/13/2019 DIABETIC FOOT EXAM due on 02/28/2019 ANNUAL PCP TEAM CHRONIC DISEASE VISIT due on 04/04/2019 DTAP,TDAP,TD(2 - Td) due on 09/09/2019 PAP EVERY 5 YEARS due on 07/28/2022 HPV EVERY 5 YEARS due on 07/28/2022 ONE PNEUMOVAX PRIOR TO AGE 65 Completed INFLUENZA Completed Data reviewed A/P ASSESSMENT/PLAN: 1. Dysthymic disorder - ICD9: 300.4, ICD10: F34.1 (primary diagnosis) - Doing much better with the combo of cymblata and buspar 2. Anxiety - ICD9: 300.00, ICD10: F41.9 - As per above 3. Panic attacks - ICD9: 300.01, ICD10: F41.0 - As per above No changes at this time Patient to keep routine f/u in Jun 2018 Will Dietz MD CNOV Observed: 05/09/2018 Status: COMPLETED Source: [place] 10:[address] [facility] REPOSITORY [facility] DEBBY BAILON ([id number]) 1980 F Date Time Provider Department 05/09/18 10:40 WILL ELDRIDGE During your visit today, we recorded the following information about you: Pulse Respiration Blood pressure Weight 80/minute 18/minute 116/80 105.7 kg Will Dietz MD 05/09/2018 9:50 PM Signed Chief Complaint Patient presents with: Recheck: anxiety/ dysthmia HPI Debby Bailon is a 37 year old female who presents here today for Above Complaints.. At last visit buspar was added. Since then patient has noticed good improvement in symptoms. Is not having the anxiety like she had been and though she still has an occasional panic attack they are less frequent and less sever. Much more manageable. Past medical history, appointments, medications, allergies reviewed. Previous Medical History PAST MEDICAL HISTORY Diagnosis Date - Abnormal sensation of left upper and lower extremity 08/07/2013 - Anxiety - Arthritis started age 19 - Cervical radiculopathy 05/02/2013 - Chronic pain 02/12/2015 - Cyst of ovary 11/28/2011 - DJD (degenerative joint disease), thoracic - DM (diabetes mellitus), secondary, uncontrolled, w/renal complications (HCC) 12/05/2017 - Dysthymic disorder Depression (non-psychotic), sees BRIM SHAPER at [facility]. 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 Seeing Dr. Gregg - Numbness and tingling of left arm and leg 08/07/2013 - Panic attacks - Paroxysmal SVT (supraventricular tachycardia) ([facility]) 07/03/2017 Per 48 Hr event monitor 06/30/2017 - Primary insomnia 02/17/2016 - Spina bifida (HCC) 01/06/2016 - Thyroid cyst 01/01/2018 Complex right sided cysts. US 12/2017, biopsy per Dr. Josue 01/23/2018 benign. Repeat US in a year. 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 nl - DANDC, DIAG AND/OR THERAPEUTIC Dilation AND curettage - PAST SURGICAL HISTORY OF cholecystectomy - PAST SURGICAL HISTORY OF 09/2012 back surgery x2 - PAST SURGICAL HISTORY OF Left AND 02/2014 foot x2 - PAST SURGICAL HISTORY OF 07/2015 Knapp stoma - REPAIR UMBILICAL HERNIA 12/11/2017 - STRESS TEST 07/18/2017 normal - STRESS TEST 03/15/2018 negative Family History FAMILY HISTORY Problem Relation Age of Onset - Arthritis Mother - Diabetes Mother - Heart Mother - Hypertension Mother - Lipids Mother - Stroke Mother - Thyroid Mother - Cancer Father Skin - Cancer Maternal Grandmother LIVER CANCER - Cancer Maternal Uncle Great Uncle - Cancer Maternal Uncle Great Uncle Patient Allergies ALLERGIES Allergen Reactions - Mushroom Anaphylaxis - Peanuts Anaphylaxis - Mri Contrast [Gadol* GI Upset Current Medications Current Outpatient Prescriptions on File Prior to Visit: atorvastatin (LIPITOR) 10 mg tablet Take 1 tablet by mouth once daily. blood sugar diagnostic (ACCU-CHEK SMARTVIEW TEST STRIP) test strip Test blood sugar(s) 2 times daily. Dx: Other DM Code E13.29 Insulin: No Blood-Glucose Meter (ACCU-CHEK ANISH) [facility] [place] meter kit. Dx: Other DM Code E13.29 busPIRone (BUSPAR) 15 mg tablet Take 1/2 a tab by mouth twice a day for 2 weeks than one twice a day. COMPOUNDED PRESCRIPTION Stoma catheter tube.DX: Qo5.4 and K59.2 DULoxetine (CYMBALTA) 60 mg capsule Take 1 capsule by mouth once daily. fluticasone (FLONASE) 50 mcg/actuation nasal spray Use 2 Sprays in each nostril once daily. Rinse mouth after use. HYDROcodone-acetaminophen (NORCO) 5-325 mg per tablet Take 1 tablet by mouth every 6 hours as needed. hydrOXYzine pamoate (VISTARIL) 25 mg capsule Take 1 capsule by mouth three times daily as needed. [facility] Insulin [place], Disposable, 32 gauge x 5/16 ndle Use once daily with Victoza Lancets (ACCU-CHEK FASTCLIX) lancets Test blood sugar 2 times/day. Dx: Other DM Code E13.29 Insulin Use: No liraglutide (VICTOZA) 0.6 mg/ 0.1 ml subcutaneous pen injector Inject 0.6 mg subcutaneously once daily. After one week increase to 1.2mg daily lisinopril 2.5 mg tablet Take 1 tablet by mouth once daily. loratadine (CLARITIN) 10 mg tablet Take 1 tablet by mouth once daily. metFORMIN ER (GLUCOPHAGE XR) 500 mg 24 hr tablet Take 2 tablets by mouth twice daily. oxybutynin ER (DITROPAN XL) 10 mg 24 hr tablet Take 1 tablet by mouth once daily. polyethylene glycol 3350 (MIRALAX) 17 gram/dose powder Take 17 g by mouth once daily. pregabalin (LYRICA) 25 mg capsule Take 1 capsule by mouth once daily. Per Neurology Dr. Calix propranolol (INDERAL) 10 mg tablet Take 1 tablet by mouth twice daily. pseudoephedrine HCl 30 mg CsTR Take 1-2 tablets by mouth every 6 hours as needed. zolpidem (AMBIEN) 10 mg tab Take 1 tablet by mouth as needed. No current facility-administered medications on file prior to visit. 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 General Appearance: Well appearing, alert, in no acute distress, well-hydrated, well nourished. and Morbidly obese. Lungs: lungs clear to auscultation. No wheezing, rhonchi, rales. Heart: RRR without murmur, gallop, or rubs. No ectopy. Health Maintenance List DILATED RETINAL EXAM due on 01/25/2018 HBA1C due on 05/15/2018 STATIN MED ADHERENCE due on 05/29/2018 DIABETES MED ADHERENCE due on 05/29/2018 LDL CHOLESTEROL due on 02/13/2019 DIABETIC FOOT EXAM due on 02/28/2019 ANNUAL PCP TEAM CHRONIC DISEASE VISIT due on 04/04/2019 DTAP,TDAP,TD(2 - Td) due on 09/09/2019 PAP EVERY 5 YEARS due on 07/28/2022 HPV EVERY 5 YEARS due on 07/28/2022 ONE PNEUMOVAX PRIOR TO AGE 65 Completed INFLUENZA Completed Data reviewed A/P ASSESSMENT/PLAN: 1. Dysthymic disorder - ICD9: 300.4, ICD10: F34.1 (primary diagnosis) - Doing much better with the combo of cymblata and buspar 2. Anxiety - ICD9: 300.00, ICD10: F41.9 - As per above 3. Panic attacks - ICD9: 300.01, ICD10: F41.0 - As per above No changes at this time Patient to keep routine f/u in Jun 2018 Will Dietz MD Referring Provider: WILL DIETZ [[id number]] Allergies As of Date: 05/09/2018 Noted Allergy Reaction MUSHROOM 06/10/2016 10 - Anaphylaxis PEANUTS 06/10/2016 10 - Anaphylaxis MRI CONTRAST (GADOLINIUM-CONTAINI*01/03/2017 8 - GI Upset Date Reviewed: 05/09/2018 Reviewed by: Will Dietz - Fully Assessed Reason for Visit: Recheck [92] Cmt: anxiety/ dysthmia Primary Visit Diagnosis:Dysthymic disorder [F34.1] Other Visit Diagnoses:Anxiety [F41.9] Panic attacks [F41.0] Prescriptions as of 05/09/2018 Sig: ATORVASTATIN 10 MG TABLET Take 1 tablet by mouth once d* BLOOD SUGAR DIAGNOSTIC STRIPS Test blood sugar(s) 2 times d* BLOOD-GLUCOSE METER Dispense 1 meter kit. Dx: Ot* BUSPIRONE 15 MG TABLET Take 1/2 a tab by mouth twice* COMPOUNDED PRESCRIPTION Stoma catheter tube. DX: Qo5* DULOXETINE 60 MG CAPSULE,SHERRY* Take 1 capsule by mouth once * FLUTICASONE 50 MCG/ACTUATION * Use 2 Sprays in each nostril * HYDROCODONE 5 MG-ACETAMINOPHE* Take 1 tablet by mouth every * HYDROXYZINE PAMOATE 25 MG CAP* Take 1 capsule by mouth three* PEN NEEDLE, DIABETIC 32 GAUGE* Use once daily with Victoza LANCETS Test blood sugar 2 times/day* LIRAGLUTIDE 0.6 MG/0.1 ML (18* Inject 0.6 mg subcutaneously * LISINOPRIL 2.5 MG TABLET Take 1 tablet by mouth once d* LORATADINE 10 MG TABLET Take 1 tablet by mouth once d* METFORMIN ER 500 MG TABLET,EX* Take 2 tablets by mouth twice* OXYBUTYNIN CHLORIDE ER 10 MG * Take 1 tablet by mouth once d* POLYETHYLENE GLYCOL 3350 17 G* Take 17 g by mouth once daily. PREGABALIN 25 MG CAPSULE Take 1 capsule by mouth once * PROPRANOLOL 10 MG TABLET Take 1 tablet by mouth twice * PSEUDOEPHEDRINE 30 MG CAPSULE* Take 1-2 tablets by mouth sarah* ZOLPIDEM 10 MG TABLET Take 1 tablet by mouth as nee* Problem List As Of Date 05/09/2018 Noted Resolved Threatened , antepartum [O20.0] INVALID FOR*04/07/2011 Supervision of normal first [Z34.00] INVALID FOR*04/07/2011 Cyst of ovary [N83.209] INVALID FOR* Depressive disorder, not elsewhere classified [*INVALID FOR*01/06/2016 More... Anxiety [F41.9] INVALID FOR* More... Dysthymic disorder [F34.1] More... Panic attacks [F41.0] Neck pain [M54.2] INVALID FOR* Cervical radiculopathy [M54.12] INVALID FOR* Weakness of both upper extremities [R29.898] INVALID FOR* More... Muscle weakness of lower extremity [M62.81] INVALID FOR* More... Numbness and tingling of left arm and leg [R20.*INVALID FOR* Abnormal sensation of left upper and lower extr*INVALID FOR*01/06/2016 Lipomeningocele (HCC) [Q05.9] INVALID FOR* Lumbago [M54.5] INVALID FOR* Neuropathy (HCC) [G62.9] INVALID FOR* More... Morbid obesity (HCC) [E66.01] INVALID FOR* Chronic pain [G89.29] INVALID FOR* Neurogenic bladder [N31.9] INVALID FOR* Hydronephrosis, right [N13.30] INVALID FOR* History of kidney stones [Z87.442] INVALID FOR* Spina bifida (HCC) [Q05.9] INVALID FOR* More... Neurogenic bowel [K59.2] INVALID FOR* Primary insomnia [F51.01] INVALID FOR* 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)*INVALID FOR* Pyelonephritis [N12] INVALID FOR* Diabetic eye exam (HCC) [Z01.00, E11.9] INVALID FOR* More... Migraine without aura and without status migrai*INVALID FOR*02/28/2018 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)*INVALID FOR* Well adult exam [Z00.00] INVALID FOR* More... Paroxysmal SVT (supraventricular tachycardia) (*INVALID FOR* More... DM (diabetes mellitus), secondary, uncontrolled*INVALID FOR* S/P hernia repair [Z98.890, Z87.19] INVALID FOR* Thyroid cyst [E04.1] INVALID FOR* More... Migraine without aura and without status migrai*INVALID FOR* Medicare annual wellness visit, subsequent [Z00*INVALID FOR* More... Mixed hyperlipidemia [E78.2] INVALID FOR* History of recurrent UTIs [Z87.440] INVALID FOR* Medications Discontinued During This Encounter ciprofloxacin HCl (CIPRO) 500 mg tab* 05/09/2018 Class: Historical Med Route: ORAL Sig: Take 500 mg by mouth twice daily. Disc: Course of therapy completed sulfamethoxazole/trimethoprim (BACTR* 05/09/2018 Class: Historical Med Route: ORAL Sig: Take by mouth twice daily. Disc: Course of therapy completed Disposition: Return if symptoms worsen or fail to improve. Follow-up and Disposition History Recorded Encounter Status:Closed by WILL DIETZ on 05/09/18 PROGRESS Observed: 05/03/2018 Status: COMPLETED Source: [place] 11:06 AM [facility] [place] REPOSITORY HNO ID: [id number] Author: Gavin Gomez Service: (none) Author Type: Physician Type: Progress Notes Filed: 05/03/2018 12:23 PM Note Text: Follow up podiatric office visit for: Chief Complaint: This 37 year old who presents for follow up:left hallux ingrowing toenail and left ankle ulceration Patient had avulsion of left hallux medial nail border last week. Patient has finished the antibiotic. She denies drainage. Patient denies any pain. Patient continues to soak the toe bid and applies band aid to her toe. She has no issues with the left hallux toenail. Patient is also here for evaluation of left ankle ulceration. Patient is applying praveena to her wound daily and she feels this is getting better. She is using compression in addition to praveena. She has no other complaints. PAIN EVALUATION No data found. Hemoglobin A1C Date Value Ref Range Status 02/13/2018 8.3 (H) 4.3 - 5.6 % Final PCP: Will Dietz MD PAST MEDICAL HISTORY Diagnosis Date - Abnormal sensation of left upper and lower extremity 08/07/2013 - Anxiety - Arthritis started age 19 - Cervical radiculopathy 05/02/2013 - Chronic pain 02/12/2015 - Cyst of ovary 11/28/2011 - DJD (degenerative joint disease), thoracic - DM (diabetes mellitus), secondary, uncontrolled, w/renal complications ([facility]) 12/05/2017 - Dysthymic disorder Depression (non-psychotic), sees BRIM SHAPER at [facility]. 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 Seeing Dr. Gregg - Numbness and tingling of left arm and leg 08/07/2013 - Panic attacks - Paroxysmal SVT (supraventricular tachycardia) ([facility]) 07/03/2017 Per 48 Hr event monitor 06/30/2017 - Primary insomnia 02/17/2016 - Spina bifida ([facility]) 01/06/2016 - Thyroid cyst 01/01/2018 Complex right sided cysts. US 12/2017, biopsy per Dr. Josue 01/23/2018 benign. Repeat US in a year. 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 After one week increase to 1.2mg daily Insulin [place], Disposable, 32 gauge x 5/16 ndle Use once daily with Victoza HYDROcodone-acetaminophen (NORCO) 5-325 mg per tablet Take 1 tablet by mouth every 6 hours as needed. ciprofloxacin HCl (CIPRO) 500 mg tablet Take 500 mg by mouth twice daily. sulfamethoxazole/trimethoprim (BACTRIM ORAL) Take by mouth twice daily. busPIRone (BUSPAR) 15 mg tablet Take 1/2 a tab by mouth twice a day for 2 weeks than one twice a day. pregabalin (LYRICA) 25 mg capsule Take 1 capsule by mouth once daily. Per Neurology Dr. Calix atorvastatin (LIPITOR) 10 mg tablet Take 1 tablet by mouth once daily. DULoxetine (CYMBALTA) 60 mg capsule Take 1 capsule by mouth once daily. lisinopril 2.5 mg tablet Take 1 tablet by mouth once daily. metFORMIN ER (GLUCOPHAGE XR) 500 mg 24 hr tablet Take 2 tablets by mouth twice daily. propranolol (INDERAL) 10 mg tablet Take 1 tablet by mouth twice daily. fluticasone (FLONASE) 50 mcg/actuation nasal spray Use 2 Sprays in each nostril once daily. Rinse mouth after use. loratadine (CLARITIN) 10 mg tablet Take 1 tablet by mouth once daily. pseudoephedrine HCl 30 mg CsTR Take 1-2 tablets by mouth every 6 hours as needed. zolpidem (AMBIEN) 10 mg tab Take 1 tablet by mouth as needed. Blood-Glucose Meter (ACCU-CHEK ANISH) [facility] [place] [place] meter kit. Dx: Other DM Code E13.29 Lancets (ACCU-CHEK FASTCLIX) lancets Test blood sugar 2 times/day. Dx: Other DM Code E13.29 Insulin Use: No blood sugar diagnostic (ACCU-CHEK SMARTVIEW TEST STRIP) test strip Test blood sugar(s) 2 times daily. Dx: Other DM Code E13.29 Insulin: No COMPOUNDED PRESCRIPTION Stoma catheter tube.DX: Qo5.4 and K59.2 polyethylene glycol 3350 (MIRALAX) 17 gram/dose powder Take 17 g by mouth once daily. oxybutynin ER (DITROPAN XL) 10 mg 24 hr tablet Take 1 tablet by mouth once daily. hydrOXYzine pamoate (VISTARIL) 25 mg capsule Take 1 capsule by mouth three times daily as needed. [facility] No current facility-administered medications for this visit. ALLERGIES Allergen Reactions - Mushroom Anaphylaxis - Peanuts Anaphylaxis - Mri Contrast [Gadol* GI Upset PAST SURGICAL HISTORY Procedure Laterality Date - 2D ECHO (EXEP) 06/28/2017 EF=65%. nl - DANDC, DIAG AND/OR THERAPEUTIC Dilation AND curettage - PAST SURGICAL HISTORY OF cholecystectomy - PAST SURGICAL HISTORY OF 09/2012 back surgery x2 - PAST SURGICAL HISTORY OF Left AND 02/2014 foot x2 - PAST SURGICAL HISTORY OF 07/2015 Knapp stoma - REPAIR UMBILICAL HERNIA 12/11/2017 - STRESS TEST 07/18/2017 normal - STRESS TEST 03/15/2018 negative REVIEW OF SYSTEMS: CONSTITUTIONAL: No fevers, chills, nightsweats, unintended weight loss HEENT: Denies frequent or severe heaches, nasal congestion/sinus symptoms, problematic allergy problems. EYES: No diplopia or blurry vision. CARDIOVASCULAR: No chest pain, dyspnea, palpitations, orthopnea, PND, ankle edema. PULM: No dyspnea, unexplained cough. GI: No dysphagia/odynophagia, problematic reflux, constipation, diarrhea, changes in stool habits, hematochezia, melena. : No new urinary complaints, including dysuria, gross hematuria or pyuria. NEURO: No new balance problems, peripheral weakness/paresthesias or numbness of concern. MUSC-SKEL: No new joint pain, swelling, or erythema. PSY: No concerns regarding depression, anxiety or panic. INTEGUMENTARY: No new skin changes (rash, new or changing mole, new growth) Physical Exam: Constitutional: Pt is a well developed 37 year old female who is alert, oriented, cooperative and in no apparent distress. OBJECTIVE: NVSI unchanged from previous visit. Dermatological: Left lateral ankle has healing ulceration with very superficial abrasion. There is periwound hyperkeratosis to left ankle ulceration. No signs of infection present. Left hallux medial border s/p avulsion with resolved infection. No signs of infection. There appears to be evidence of rubbing on left hallux lateral aspect due to crossover 2nd toe. No ulceration present. Musculoskeletal/Orthopaedic: Patient has no pain to palpation of b/l feet ASSESSMENT: (L60.0) Ingrowing toenail (primary encounter diagnosis) (L97.321) Skin ulcer of left ankle, limited to breakdown of skin (HCC) (E11.49) Other diabetic neurological complication associated with type 2 diabetes mellitus (HCC) PLAN: 1. History and physical examination completed today. 2. Discussed ingrowing toenail of left hallux s/p avulsion. Avulsion site appears healed. Small eschar present and this was debrided with tissue nippers. At this time, she is healed. Patient informed of risk of recurrence. If recurrence occurs, would consider matrixectomy. 3. Discussed left ankle ulcer. This appears to be healing. Nonviable tissue was debrided with tissue nippers. Recommend topical wound gel and band aid with copmression . 4. Will give toe spacer to prevent rubbing from 2nd toe. 5. F/u in 2 weeks Gavin Gomez DPM PROGRESS Observed: 05/03/2018 Status: COMPLETED Source: [place] 10:[address] [facility] REPOSITORY HNO ID: [id number] Author: Elizabeth Olvera Service: (none) Author Type: (none) Type: Progress Notes Filed: 05/03/2018 12:23 PM Note Text: AMB ROOMING INTAKE FLOWSHEET DATA Risk Screening Do you have concerns about personal safety or safety in the home?: No Patient presents for 1 week post nail avulsion, left medial Hallux. Elizabeth Olvera CNOV Observed: 05/03/2018 Status: COMPLETED Source: [place] 10:[address] [facility] REPOSITORY Office Visit (PODIWS) UVALDODEBBY Colette ([id number]) 1980 F Date Time Provider Department 05/03/18 10:40 AM GAVIN GOMEZ During your visit today, we recorded the following information about you: Elizabeth Olvera 05/03/2018 12:23 PM Signed AMB ROOMING INTAKE FLOWSHEET DATA Risk Screening Do you have concerns about personal safety or safety in the home?: No Patient presents for 1 week post nail avulsion, left medial Hallux. Elizabeth Olvera Gavin Gomez DPM 05/03/2018 12:23 PM Signed Follow up podiatric office visit for: Chief Complaint: This 37 year old who presents for follow up:left hallux ingrowing toenail and left ankle ulceration Patient had avulsion of left hallux medial nail border last week. Patient has finished the antibiotic. She denies drainage. Patient denies any pain. Patient continues to soak the toe bid and applies band aid to her toe. She has no issues with the left hallux toenail. Patient is also here for evaluation of left ankle ulceration. Patient is applying praveena to her wound daily and she feels this is getting better. She is using compression in addition to praveena. She has no other complaints. PAIN EVALUATION No data found. Hemoglobin A1C Date Value Ref Range Status 02/13/2018 8.3 (H) 4.3 - 5.6 % Final PCP: Will Dietz MD PAST MEDICAL HISTORY Diagnosis Date - Abnormal sensation of left upper and lower extremity 08/07/2013 - Anxiety - Arthritis started age 19 - Cervical radiculopathy 05/02/2013 - Chronic pain 02/12/2015 - Cyst of ovary 11/28/2011 - DJD (degenerative joint disease), thoracic - DM (diabetes mellitus), secondary, uncontrolled, w/renal complications (HCC) 12/05/2017 - Dysthymic disorder Depression (non-psychotic), sees BRIM SHAPER at [facility]. - History of kidney stones 01/04/2016 - History of recurrent UTIs 11/28/2011 - Hydronephrosis, right 01/04/2016 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 - Lumbago 02/12/2015 - Migraine without aura and without status migrainosus, not intractable 10/18/2016 - Miscarriage - Morbid obesity (HCC) 02/12/2015 - Muscle weakness of left lower extremity 08/07/2013 - Neck pain 05/02/2013 - Neurogenic bladder 02/12/2015 - Neurogenic bowel 01/06/2016 - Neuropathy (HCC) 02/12/2015 post back surgery with secondary infection. Seeing Dr. Gregg - Numbness and tingling of left arm and leg 08/07/2013 - Panic attacks - Paroxysmal SVT (supraventricular tachycardia) ([facility]) 07/03/2017 Per 48 Hr event monitor 06/30/2017 - Primary insomnia 02/17/2016 - Spina bifida (HCC) 01/06/2016 - Thyroid cyst 01/01/2018 Complex right sided cysts. US 12/2017, biopsy per Dr. Josue 01/23/2018 benign. Repeat US in a year. - Type 2 diabetes mellitus with albuminuria ([facility]) 10/18/2016 - 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) 02/19/2016 - Ulcer of left foot (HCC) 02/21/2017 - Ventral hernia without obstruction or gangrene - Weakness of both upper extremities 08/07/2013 Chronic Current Outpatient Prescriptions: liraglutide (VICTOZA) 0.6 mg/ 0.1 ml subcutaneous pen injector Inject 0.6 mg subcutaneously once daily. After one week increase to 1.2mg daily Insulin [place], Disposable, 32 gauge x 5/16 ndle Use once daily with Victoza HYDROcodone-acetaminophen (NORCO) 5-325 mg per tablet Take 1 tablet by mouth every 6 hours as needed. ciprofloxacin HCl (CIPRO) 500 mg tablet Take 500 mg by mouth twice daily. sulfamethoxazole/trimethoprim (BACTRIM ORAL) Take by mouth twice daily. busPIRone (BUSPAR) 15 mg tablet Take 1/2 a tab by mouth twice a day for 2 weeks than one twice a day. pregabalin (LYRICA) 25 mg capsule Take 1 capsule by mouth once daily. Per Neurology Dr. Calix atorvastatin (LIPITOR) 10 mg tablet Take 1 tablet by mouth once daily. DULoxetine (CYMBALTA) 60 mg capsule Take 1 capsule by mouth once daily. lisinopril 2.5 mg tablet Take 1 tablet by mouth once daily. metFORMIN ER (GLUCOPHAGE XR) 500 mg 24 hr tablet Take 2 tablets by mouth twice daily. propranolol (INDERAL) 10 mg tablet Take 1 tablet by mouth twice daily. fluticasone (FLONASE) 50 mcg/actuation nasal spray Use 2 Sprays in each nostril once daily. Rinse mouth after use. loratadine (CLARITIN) 10 mg tablet Take 1 tablet by mouth once daily. pseudoephedrine HCl 30 mg CsTR Take 1-2 tablets by mouth every 6 hours as needed. zolpidem (AMBIEN) 10 mg tab Take 1 tablet by mouth as needed. Blood-Glucose Meter (ACCU-CHEK ANISH) [facility] [place] meter kit. Dx: Other DM Code E13.29 Lancets (ACCU-CHEK FASTCLIX) lancets Test blood sugar 2 times/day. Dx: Other DM Code E13.29 Insulin Use: No blood sugar diagnostic (ACCU-CHEK SMARTVIEW TEST STRIP) test strip Test blood sugar(s) 2 times daily. Dx: Other DM Code E13.29 Insulin: No COMPOUNDED PRESCRIPTION Stoma catheter tube.DX: Qo5.4 and K59.2 polyethylene glycol 3350 (MIRALAX) 17 gram/dose powder Take 17 g by mouth once daily. oxybutynin ER (DITROPAN XL) 10 mg 24 hr tablet Take 1 tablet by mouth once daily. hydrOXYzine pamoate (VISTARIL) 25 mg capsule Take 1 capsule by mouth three times daily as needed. [facility] No current facility-administered medications for this visit. ALLERGIES Allergen Reactions - Mushroom Anaphylaxis - Peanuts Anaphylaxis - Mri Contrast [Gadol* GI Upset PAST SURGICAL HISTORY Procedure Laterality Date - 2D ECHO (EXEP) 06/28/2017 EF=65%. nl - DANDC, DIAG AND/OR THERAPEUTIC Dilation AND curettage - PAST SURGICAL HISTORY OF cholecystectomy - PAST SURGICAL HISTORY OF 09/2012 back surgery x2 - PAST SURGICAL HISTORY OF Left AND 02/2014 foot x2 - PAST SURGICAL HISTORY OF 07/2015 [place] stoma - REPAIR UMBILICAL HERNIA 12/11/2017 - STRESS TEST 07/18/2017 normal - STRESS TEST 03/15/2018 negative REVIEW OF SYSTEMS: CONSTITUTIONAL: No fevers, chills, nightsweats, unintended weight loss HEENT: Denies frequent or severe heaches, nasal congestion/sinus symptoms, problematic allergy problems. EYES: No diplopia or blurry vision. CARDIOVASCULAR: No chest pain, dyspnea, palpitations, orthopnea, PND, ankle edema. PULM: No dyspnea, unexplained cough. GI: No dysphagia/odynophagia, problematic reflux, constipation, diarrhea, changes in stool habits, hematochezia, melena. : No new urinary complaints, including dysuria, gross hematuria or pyuria. NEURO: No new balance problems, peripheral weakness/paresthesias or numbness of concern. MUSC-SKEL: No new joint pain, swelling, or erythema. PSY: No concerns regarding depression, anxiety or panic. INTEGUMENTARY: No new skin changes (rash, new or changing mole, new growth) Physical Exam: Constitutional: Pt is a well developed 37 year old female who is alert, oriented, cooperative and in no apparent distress. OBJECTIVE: NVSI unchanged from previous visit. Dermatological: Left lateral ankle has healing ulceration with very superficial abrasion. There is periwound hyperkeratosis to left ankle ulceration. No signs of infection present. Left hallux medial border s/p avulsion with resolved infection. No signs of infection. There appears to be evidence of rubbing on left hallux lateral aspect due to crossover 2nd toe. No ulceration present. Musculoskeletal/Orthopaedic: Patient has no pain to palpation of b/l feet ASSESSMENT: (L60.0) Ingrowing toenail (primary encounter diagnosis) (L97.321) Skin ulcer of left ankle, limited to breakdown of skin (HCC) (E11.49) Other diabetic neurological complication associated with type 2 diabetes mellitus (HCC) PLAN: 1. History and physical examination completed today. 2. Discussed ingrowing toenail of left hallux s/p avulsion. Avulsion site appears healed. Small eschar present and this was debrided with tissue nippers. At this time, she is healed. Patient informed of risk of recurrence. If recurrence occurs, would consider matrixectomy. 3. Discussed left ankle ulcer. This appears to be healing. Nonviable tissue was debrided with tissue nippers. Recommend topical wound gel and band aid with copmression . 4. Will give toe spacer to prevent rubbing from 2nd toe. 5. F/u in 2 weeks ERIC Boland RN 05/03/2018 11:17 AM Addendum Apply bandaid and neosporin to ulcer of L ankle Continue RICHARD wrap Wear toe spacer between L 1st and 2nd toes Referring Provider: GAVIN GOMEZ [[id number]] Allergies As of Date: 05/03/2018 Noted Allergy Reaction MUSHROOM 06/10/2016 10 - Anaphylaxis PEANUTS 06/10/2016 10 - Anaphylaxis MRI CONTRAST (GADOLINIUM-CONTAINI*01/03/2017 8 - GI Upset Date Reviewed: 05/03/2018 Reviewed by: Elizabeth Olvera - Fully Assessed Reason for Visit: Recheck [92] Cmt: nail avulsion L medial hallux and ulcer L ankle Reason For Visit History Recorded Primary Visit Diagnosis:Ingrowing toenail [L60.0] Other Visit Diagnoses:Skin ulcer of left ankle, limited to breakdown of skin (HCC) [L97.321] Other diabetic neurological complication associated with type 2 diabetes mellitus (HCC) [E11.49] Prescriptions as of 05/03/2018 Sig: LIRAGLUTIDE 0.6 MG/0.1 ML (18* Inject 0.6 mg subcutaneously * PEN NEEDLE, DIABETIC 32 GAUGE* Use once daily with Victoza HYDROCODONE 5 MG-ACETAMINOPHE* Take 1 tablet by mouth every * CIPROFLOXACIN 500 MG TABLET Take 500 mg by mouth twice da* BACTRIM ORAL Take by mouth twice daily. BUSPIRONE 15 MG TABLET Take 1/2 a tab by mouth twice* PREGABALIN 25 MG CAPSULE Take 1 capsule by mouth once * ATORVASTATIN 10 MG TABLET Take 1 tablet by mouth once d* DULOXETINE 60 MG CAPSULE,SHERRY* Take 1 capsule by mouth once * LISINOPRIL 2.5 MG TABLET Take 1 tablet by mouth once d* METFORMIN ER 500 MG TABLET,EX* Take 2 tablets by mouth twice* PROPRANOLOL 10 MG TABLET Take 1 tablet by mouth twice * FLUTICASONE 50 MCG/ACTUATION * Use 2 Sprays in each nostril * LORATADINE 10 MG TABLET Take 1 tablet by mouth once d* PSEUDOEPHEDRINE 30 MG CAPSULE* Take 1-2 tablets by mouth sarah* ZOLPIDEM 10 MG TABLET Take 1 tablet by mouth as nee* BLOOD-GLUCOSE METER Dispense 1 meter kit. Dx: Ot* LANCETS Test blood sugar 2 times/day* BLOOD SUGAR DIAGNOSTIC STRIPS Test blood sugar(s) 2 times d* COMPOUNDED PRESCRIPTION Stoma catheter tube. DX: Qo5* POLYETHYLENE GLYCOL 3350 17 G* Take 17 g by mouth once daily. OXYBUTYNIN CHLORIDE ER 10 MG * Take 1 tablet by mouth once d* HYDROXYZINE PAMOATE 25 MG CAP* Take 1 capsule by mouth three* Problem List As Of Date 05/03/2018 Noted Resolved Threatened , antepartum [O20.0] INVALID FOR*04/07/2011 Supervision of normal first [Z34.00] INVALID FOR*04/07/2011 Cyst of ovary [N83.209] INVALID FOR* Depressive disorder, not elsewhere classified [*INVALID FOR*01/06/2016 More... Anxiety [F41.9] INVALID FOR* More... Dysthymic disorder [F34.1] More... Panic attacks [F41.0] Neck pain [M54.2] INVALID FOR* Cervical radiculopathy [M54.12] INVALID FOR* Weakness of both upper extremities [R29.898] INVALID FOR* More... Muscle weakness of lower extremity [M62.81] INVALID FOR* More... Numbness and tingling of left arm and leg [R20.*INVALID FOR* Abnormal sensation of left upper and lower extr*INVALID FOR*01/06/2016 Lipomeningocele (HCC) [Q05.9] INVALID FOR* Lumbago [M54.5] INVALID FOR* Neuropathy (HCC) [G62.9] INVALID FOR* More... Morbid obesity (HCC) [E66.01] INVALID FOR* Chronic pain [G89.29] INVALID FOR* Neurogenic bladder [N31.9] INVALID FOR* Hydronephrosis, right [N13.30] INVALID FOR* History of kidney stones [Z87.442] INVALID FOR* Spina bifida (HCC) [Q05.9] INVALID FOR* More... Neurogenic bowel [K59.2] INVALID FOR* Primary insomnia [F51.01] INVALID FOR* 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)*INVALID FOR* Pyelonephritis [N12] INVALID FOR* Diabetic eye exam ([facility]) [Z01.00, E11.9] INVALID FOR* More... Migraine without aura and without status migrai*INVALID FOR*02/28/2018 Type 2 diabetes mellitus with albuminuria ([facility])*INVALID FOR* Well adult exam [Z00.00] INVALID FOR* More... Paroxysmal SVT (supraventricular tachycardia) (*INVALID FOR* More... DM (diabetes mellitus), secondary, uncontrolled*INVALID FOR* S/P hernia repair [Z98.890, Z87.19] INVALID FOR* Thyroid cyst [E04.1] INVALID FOR* More... Migraine without aura and without status migrai*INVALID FOR* Medicare annual wellness visit, subsequent [Z00*INVALID FOR* More... Mixed hyperlipidemia [E78.2] INVALID FOR* History of recurrent UTIs [Z87.440] INVALID FOR* Other instructions from your clinician: Apply bandaid and neosporin to ulcer of L ankle Continue RICHARD wrap Wear toe spacer between L 1st and 2nd toes Disposition: Return in about 2 weeks (around 05/17/2018) for ulcer, L ankle. Follow-up and Disposition History Recorded Encounter Status:Closed by GAVIN GOMEZ DPM on 05/03/18 PROGRESS Observed: 04/30/2018 Status: COMPLETED Source: [place] 3:30 PM [facility] [place] REPOSITORY O ID: [id number] Author: Emely Aguiar (Pharmacist) Service: (none) Author Type: Pharmacist Type: Progress Notes Filed: 04/30/2018 4:25 PM Note Text: Patient consents to pharmacy collaborative practice agreement. REASON FOR CONSULT: DM GOALS: A1c < 7% CONSULTING PROVIDER: Dr. Dietz Date of Consult: 02/28/18 Debby Bailon is a 37 year old female was last seen in [facility] by PCP, Dr. Will Dietz MD on 04/04/18. Patient is presenting today for initial pharmacotherapy management appointment for DM. At last PCP visit buspirone was started. INTERIM HISTORY: Reports doing well overall Has an infection on her foot, taking cipro and Bactrim Current DM Medications: Glimepiride 4mg QAM Metformin ER 500mg #2 BID Current HTN Medications: Lisinopril 2.5mg daily Propranolol 10mg BID Preventative Medications: ? On RICHARD/ARB: Yes ? On Statin: Yes ? On ASA: No ROS: ? Patient denies CP, SOB, CUETO, blurred vision, dizziness or lightheadedness ? Patient denies symptoms of hypoglycemia (sweating, anxiety, palpitations, hunger, and tremor) ? Patient denies symptoms of hyperglycemia (polyuria, polydipsia, polyphagia) ? Patient denies potential medication adverse effects DIET/EXERCISE/SOCIAL Hx: ? Breakfast: cereal or muffin and eggs ? Lunch: ham or turkey sandwich whole wheat bread ? Dinner: portion, chicken or steak, vegetable ? Beverages: water ? Exercise: walking, bowling ? Tobacco: denies ? Alcohol: denies ? Illicits: denies MEDICATIONS: ? Pill bottles are not present. ? Adherence: denies missed doses. ? Pharmacy: [facility] ? Rx coverage: Medicare [employer] ? Affordability: no issues ? Diabetes supplies: [facility] meter ? 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[facility]) Lumbago Neuropathy ([facility]) Morbid Obesity ([facility]) Chronic Pain Neurogenic Bladder Hydronephrosis, Right History of Kidney Stones Spina Bifida ([facility]) Neurogenic Bowel Primary Insomnia Type 2 Diabetes Mellitus With Proteinuria ([facility]) Pyelonephritis Diabetic Eye Exam ([facility]) Type 2 Diabetes Mellitus With Albuminuria ([facility]) Well Adult Exam Paroxysmal Svt (Supraventricular Tachycardia) ([facility]) Dm (Diabetes Mellitus), Secondary, Uncontrolled, W/Renal Complications ([facility]) S/P Hernia Repair Thyroid Cyst Migraine Without Aura and Without Status Migrainosus, Not Intractable Medicare Annual Wellness Visit, Subsequent Mixed Hyperlipidemia History of Recurrent [place] PAST MEDICAL HISTORY Diagnosis Date - Abnormal sensation of left upper and lower extremity 08/07/2013 - Anxiety - Arthritis started age 19 - Cervical radiculopathy 05/02/2013 - Chronic pain 02/12/2015 - Cyst of ovary 11/28/2011 - DJD (degenerative joint disease), thoracic - DM (diabetes mellitus), secondary, uncontrolled, w/renal complications ([facility]) 12/05/2017 - Dysthymic disorder Depression (non-psychotic), sees BRIM SHAPER at [facility]. 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 Seeing Dr. Gregg - Numbness and tingling of left arm and leg 08/07/2013 - Panic attacks - Paroxysmal SVT (supraventricular tachycardia) ([facility]) 07/03/2017 Per 48 Hr event monitor 06/30/2017 - Primary insomnia 02/17/2016 - Spina bifida ([facility]) 01/06/2016 - Thyroid cyst 01/01/2018 Complex right sided cysts. US 12/2017, biopsy per Dr. Josue 01/23/2018 benign. Repeat US in a year. - Type 2 diabetes mellitus with albuminuria ([facility]) 10/18/2016 - Type 2 diabetes mellitus with proteinuria ([facility]) 02/19/2016 - Ulcer of left foot ([facility]) 02/21/2017 - Ventral hernia without obstruction or gangrene - Weakness of both upper extremities 08/07/2013 Chronic ALLERGIES Allergen Reactions - Mushroom Anaphylaxis - Peanuts Anaphylaxis - Mri Contrast [Gadol* GI Upset Medication List Medication Directions Comments Action/Plan atorvastatin (LIPITOR) 10 mg tablet Take 1 tablet by mouth once daily. Taking daily blood sugar diagnostic (ACCU-CHEK SMARTVIEW TEST STRIP) test strip Test blood sugar(s) 2 times daily. Dx: Other DM Code E13.29 Insulin: No Blood-Glucose Meter (ACCU-CHEK ANISH) [facility] [place] [place] meter kit. Dx: Other DM Code E13.29 busPIRone (BUSPAR) 15 mg tablet Take 1/2 a tab by mouth twice a day for 2 weeks than one twice a day. Taking BID ciprofloxacin HCl (CIPRO) 500 mg tablet Take 500 mg by mouth twice daily. Taking BID COMPOUNDED PRESCRIPTION Stoma catheter tube. DX: Qo5.4 and K59.2 DULoxetine (CYMBALTA) 60 mg capsule Take 1 capsule by mouth once daily. Taking fluticasone (FLONASE) 50 mcg/actuation nasal spray Use 2 Sprays in each nostril once daily. Rinse mouth after use. Taking glimepiride (AMARYL) 4 mg tablet Take 1 tablet by mouth daily with breakfast. Taking HYDROcodone-acetaminophen (NORCO) 5-325 mg per tablet Take 1 tablet by mouth every 6 hours as needed. PRN, 2x per week for extreme pain hydrOXYzine pamoate (VISTARIL) 25 mg capsule Take 1 capsule by mouth three times daily as needed. [facility] TID Lancets (ACCU-CHEK FASTCLIX) lancets Test blood sugar 2 times/day. Dx: Other DM Code E13.29 Insulin Use: No lisinopril 2.5 mg tablet Take 1 tablet by mouth once daily. Taking loratadine (CLARITIN) 10 mg tablet Take 1 tablet by mouth once daily. Taking metFORMIN ER (GLUCOPHAGE XR) 500 mg 24 hr tablet Take 2 tablets by mouth twice daily. Taking oxybutynin ER (DITROPAN XL) 10 mg 24 hr tablet Take 1 tablet by mouth once daily. Taking polyethylene glycol 3350 (MIRALAX) 17 gram/dose powder Take 17 g by mouth once daily. Taking pregabalin (LYRICA) 25 mg capsule Take 1 capsule by mouth once daily. Per Neurology Dr. Calix Taking propranolol (INDERAL) 10 mg tablet Take 1 tablet by mouth twice daily. BID pseudoephedrine HCl 30 mg CsTR Take 1-2 tablets by mouth every 6 hours as needed. PRN sulfamethoxazole/trimethoprim (BACTRIM ORAL) Take by mouth twice daily. BID zolpidem (AMBIEN) 10 mg tab Take 1 tablet by mouth as needed. PRN, 1-2x Rx meds not listed in EPIC: none OTCs: ibuprofen PRN Herbals: none GLYCEMIC CONTROL: ? Glucometer present at visit: No ? SMBG?s: ? FBGs 195-250 ? Hypoglycemia: denies Last 3 Encounter BP Readings: Date: BP: 04/04/2018 114/77 03/07/2018 112/84 02/28/2018 122/78 Wt: 106.1 kg (234 lb) BMI: 44.21 kg/(m2) LABS Lab Results Component Value Date HBA1C 8.3 02/13/2018 HBA1C 8.9 10/10/2017 HBA1C 8.1 06/02/2017 CMP: Glucose 195 02/13/2018 BUN 7 02/13/2018 Creatinine 0.70 02/13/2018 Sodium 138 02/13/2018 Potassium 4.2 02/13/2018 Chloride 103 02/13/2018 CO2 21 02/13/2018 Protein, Total 7.2 02/13/2018 Albumin 4.0 02/13/2018 Calcium 8.8 02/13/2018 Alkaline Phosphatase 67 02/13/2018 Bilirubin, Total 0.4 02/13/2018 AST 44 02/13/2018 ALT 38 02/13/2018 Estimated Creatinine Clearance: 124.7 mL/min (based on SCr of 0.7 mg/dL). Last Lipid Panel Lab Results Component Value Date CHOL 150 02/13/2018 Lab Results Component Value Date HDL 35 02/13/2018 Lab Results Component Value Date LDL 90 02/13/2018 Lab Results Component Value Date TG 127 02/13/2018 Albumin/Creat Ratio (mg/g) Date Value 02/13/2018 36 (H) PHARMACOTHERAPY ASSESSMENT/PLAN: 1. DM (diabetes mellitus), secondary, uncontrolled, w/renal complications (HCC) - ICD9: 249.41, ICD10: E13.29, E13.65 A1c goal < 7%, patient is not at goal (8.3% on 02/13). FBGs not at goal. Patient compliant with and tolerating current regimen. Discussed need for additional therapy, GLP-1 vs SGLT-2 for CVD benefits. Patient reports already having frequent UTIs and would prefer not to increase that risk. Will start GLP-1, patient prefers daily. Renal fxn and LFTs WNL and appropriate for continued therapy ? START Victoza 0.6mg once daily (increase to 1.2mg after one week) ? Patient denies personal or family hx of pancreatitis or MEN2/MTC. Reviewed dietary adjustments to prevent AE, smaller more frequent meals, not eating past full, avoiding foods high in fat. Patient expresses understanding. ? STOP glimepiride ? CONTINUE metformin ER 2,000mg daily ? Instructed patient to continue checking FBGs daily, contact [facility] Medical re: DM supplies ? Labs in April Health Maintenance issues addressed: DILATED RETINAL EXAM due on 01/25/2018 Patient is scheduled to see PCP 05/09. Patient to return to clinic for PharmD f/u on 06/05. Patient verbalized understanding of instructions. Emely Aguiar, MariselD, BCPS CNOV Observed: 04/30/2018 Status: COMPLETED Source: [place] 3:30 PM [facility] [place] REPOSITORY Office Visit (PHMEWO) DEBBY BAILON ([id number]) 1980 F Date Time Provider Department 04/30/18 3:30 PM [facility] (PHARMACIST)EMELY During your visit today, we recorded the following information about you: DWAYNE TORREZ 04/30/2018 4:25 PM Signed Patient consents to pharmacy collaborative practice agreement. REASON FOR CONSULT: DM GOALS: A1c < 7% CONSULTING PROVIDER: Dr. Dietz Date of Consult: 02/28/18 Debby Bailon is a 37 year old female was last seen in [facility] by PCP, Dr. Will Dietz MD on 04/04/18. Patient is presenting today for initial pharmacotherapy management appointment for DM. At last PCP visit buspirone was started. INTERIM HISTORY: Reports doing well overall Has an infection on her foot, taking cipro and Bactrim Current DM Medications: Glimepiride 4mg QAM Metformin ER 500mg #2 BID Current HTN Medications: Lisinopril 2.5mg daily Propranolol 10mg BID Preventative Medications: ? On RICHARD/ARB: Yes ? On Statin: Yes ? On ASA: No ROS: ? Patient denies CP, SOB, CUETO, blurred vision, dizziness or lightheadedness ? Patient denies symptoms of hypoglycemia (sweating, anxiety, palpitations, hunger, and tremor) ? Patient denies symptoms of hyperglycemia (polyuria, polydipsia, polyphagia) ? Patient denies potential medication adverse effects DIET/EXERCISE/SOCIAL Hx: ? Breakfast: cereal or muffin and eggs ? Lunch: ham or turkey sandwich whole wheat bread ? Dinner: portion, chicken or steak, vegetable ? Beverages: water ? Exercise: walking, bowling ? Tobacco: denies ? Alcohol: denies ? Illicits: denies MEDICATIONS: ? Pill bottles are not present. ? Adherence: denies missed doses. ? Pharmacy: [facility] ? Rx coverage: Medicare [employer] ? Affordability: no issues ? Diabetes supplies: [facility] meter ? 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Hcc) Lumbago Neuropathy ([facility]) Morbid Obesity ([facility]) Chronic Pain Neurogenic Bladder Hydronephrosis, Right History of Kidney Stones Spina Bifida ([facility]) Neurogenic Bowel Primary Insomnia Type 2 Diabetes Mellitus With Proteinuria ([facility]) Pyelonephritis Diabetic Eye Exam ([facility]) Type 2 Diabetes Mellitus With Albuminuria ([facility]) Well Adult Exam Paroxysmal Svt (Supraventricular Tachycardia) ([facility]) Dm (Diabetes Mellitus), Secondary, Uncontrolled, W/Renal Complications ([facility]) S/P Hernia Repair Thyroid Cyst Migraine Without Aura and Without Status Migrainosus, Not Intractable Medicare Annual Wellness Visit, Subsequent Mixed Hyperlipidemia History of Recurrent [place] PAST MEDICAL HISTORY Diagnosis Date - Abnormal sensation of left upper and lower extremity 08/07/2013 - Anxiety - Arthritis started age 19 - Cervical radiculopathy 05/02/2013 - Chronic pain 02/12/2015 - Cyst of ovary 11/28/2011 - DJD (degenerative joint disease), thoracic - DM (diabetes mellitus), secondary, uncontrolled, w/renal complications ([facility]) 12/05/2017 - Dysthymic disorder Depression (non-psychotic), sees BRIM SHAPER at [facility]. 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 Seeing Dr. Gregg - Numbness and tingling of left arm and leg 08/07/2013 - Panic attacks - Paroxysmal SVT (supraventricular tachycardia) ([facility]) 07/03/2017 Per 48 Hr event monitor 06/30/2017 - Primary insomnia 02/17/2016 - Spina bifida (HCC) 01/06/2016 - Thyroid cyst 01/01/2018 Complex right sided cysts. US 12/2017, biopsy per Dr. Josue 01/23/2018 benign. Repeat US in a year. - 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) 10/18/2016 - 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) 02/19/2016 - Ulcer of left foot (HCC) 02/21/2017 - Ventral hernia without obstruction or gangrene - Weakness of both upper extremities 08/07/2013 Chronic ALLERGIES Allergen Reactions - Mushroom Anaphylaxis - Peanuts Anaphylaxis - Mri Contrast [Gadol* GI Upset Medication List Medication Directions Comments Action/Plan atorvastatin (LIPITOR) 10 mg tablet Take 1 tablet by mouth once daily. Taking daily blood sugar diagnostic (ACCU-CHEK SMARTVIEW TEST STRIP) test strip Test blood sugar(s) 2 times daily. Dx: Other DM Code E13.29 Insulin: No Blood-Glucose Meter (ACCU-CHEK ANISH) [facility] [place] kit. Dx: Other DM Code E13.29 busPIRone (BUSPAR) 15 mg tablet Take 1/2 a tab by mouth twice a day for 2 weeks than one twice a day. Taking BID ciprofloxacin HCl (CIPRO) 500 mg tablet Take 500 mg by mouth twice daily. Taking BID COMPOUNDED PRESCRIPTION Stoma catheter tube. DX: Qo5.4 and K59.2 DULoxetine (CYMBALTA) 60 mg capsule Take 1 capsule by mouth once daily. Taking fluticasone (FLONASE) 50 mcg/actuation nasal spray Use 2 Sprays in each nostril once daily. Rinse mouth after use. Taking glimepiride (AMARYL) 4 mg tablet Take 1 tablet by mouth daily with breakfast. Taking HYDROcodone-acetaminophen (NORCO) 5-325 mg per tablet Take 1 tablet by mouth every 6 hours as needed. PRN, 2x per week for extreme pain hydrOXYzine pamoate (VISTARIL) 25 mg capsule Take 1 capsule by mouth three times daily as needed. [facility] TID Lancets (ACCU-CHEK FASTCLIX) lancets Test blood sugar 2 times/day. Dx: Other DM Code E13.29 Insulin Use: No lisinopril 2.5 mg tablet Take 1 tablet by mouth once daily. Taking loratadine (CLARITIN) 10 mg tablet Take 1 tablet by mouth once daily. Taking metFORMIN ER (GLUCOPHAGE XR) 500 mg 24 hr tablet Take 2 tablets by mouth twice daily. Taking oxybutynin ER (DITROPAN XL) 10 mg 24 hr tablet Take 1 tablet by mouth once daily. Taking polyethylene glycol 3350 (MIRALAX) 17 gram/dose powder Take 17 g by mouth once daily. Taking pregabalin (LYRICA) 25 mg capsule Take 1 capsule by mouth once daily. Per Neurology Dr. Calix Taking propranolol (INDERAL) 10 mg tablet Take 1 tablet by mouth twice daily. BID pseudoephedrine HCl 30 mg CsTR Take 1-2 tablets by mouth every 6 hours as needed. PRN sulfamethoxazole/trimethoprim (BACTRIM ORAL) Take by mouth twice daily. BID zolpidem (AMBIEN) 10 mg tab Take 1 tablet by mouth as needed. PRN, 1-2x Rx meds not listed in EPIC: none OTCs: ibuprofen PRN Herbals: none GLYCEMIC CONTROL: ? Glucometer present at visit: No ? SMBG?s: ? FBGs 195-250 ? Hypoglycemia: denies Last 3 Encounter BP Readings: Date: BP: 04/04/2018 114/77 03/07/2018 112/84 02/28/2018 122/78 Wt: 106.1 kg (234 lb) BMI: 44.21 kg/(m2) LABS Lab Results Component Value Date HBA1C 8.3 02/13/2018 HBA1C 8.9 10/10/2017 HBA1C 8.1 06/02/2017 CMP: Glucose 195 02/13/2018 BUN 7 02/13/2018 Creatinine 0.70 02/13/2018 Sodium 138 02/13/2018 Potassium 4.2 02/13/2018 Chloride 103 02/13/2018 CO2 21 02/13/2018 Protein, Total 7.2 02/13/2018 Albumin 4.0 02/13/2018 Calcium 8.8 02/13/2018 Alkaline Phosphatase 67 02/13/2018 Bilirubin, Total 0.4 02/13/2018 AST 44 02/13/2018 ALT 38 02/13/2018 Estimated Creatinine Clearance: 124.7 mL/min (based on SCr of 0.7 mg/dL). Last Lipid Panel Lab Results Component Value Date CHOL 150 02/13/2018 Lab Results Component Value Date HDL 35 02/13/2018 Lab Results Component Value Date LDL 90 02/13/2018 Lab Results Component Value Date TG 127 02/13/2018 Albumin/Creat Ratio (mg/g) Date Value 02/13/2018 36 (H) PHARMACOTHERAPY ASSESSMENT/PLAN: 1. DM (diabetes mellitus), secondary, uncontrolled, w/renal complications (HCC) - ICD9: 249.41, ICD10: E13.29, E13.65 A1c goal < 7%, patient is not at goal (8.3% on 02/13). FBGs not at goal. Patient compliant with and tolerating current regimen. Discussed need for additional therapy, GLP-1 vs SGLT-2 for CVD benefits. Patient reports already having frequent UTIs and would prefer not to increase that risk. Will start GLP-1, patient prefers daily. Renal fxn and LFTs WNL and appropriate for continued therapy ? START Victoza 0.6mg once daily (increase to 1.2mg after one week) ? Patient denies personal or family hx of pancreatitis or MEN2/MTC. Reviewed dietary adjustments to prevent AE, smaller more frequent meals, not eating past full, avoiding foods high in fat. Patient expresses understanding. ? STOP glimepiride ? CONTINUE metformin ER 2,000mg daily ? Instructed patient to continue checking FBGs daily, contact [facility] Medical re: DM supplies ? Labs in April Health Maintenance issues addressed: DILATED RETINAL EXAM due on 01/25/2018 Patient is scheduled to see PCP 05/09. Patient to return to clinic for PharmD f/u on 06/05. Patient verbalized understanding of instructions. Marisel TorrezD, [facility] EMELY AGUIAR PHARMACIST 04/30/2018 4:04 PM Signed [facility] Medical - glucometer, test strips, how to get from them Victoza 0.6mg daily, after one week 1.2mg daily Stop glimepiride Check sugars every morning before breakfast Bring machine next appointment Emely Aguiar PharmD, BCPS [phone] Referring Provider: WILL DIETZ [[id number]] Allergies As of Date: 04/30/2018 Noted Allergy Reaction MUSHROOM 06/10/2016 10 - Anaphylaxis PEANUTS 06/10/2016 10 - Anaphylaxis MRI CONTRAST (GADOLINIUM-CONTAINI*01/03/2017 8 - GI Upset Date Reviewed: 04/26/2018 Reviewed by: Bernard (Rn) Dimple - Fully Assessed Reason for Visit: Allied Health Visit [5] Cmt: DM initial Reason For Visit History Recorded Primary Visit Diagnosis:DM (diabetes mellitus), secondary, uncontrolled, w/renal complications (HCC) [E13.29, E13.65] Order(s):liraglutide (VICTOZA) 0.6 mg/ 0.1 ml subcutaneous pen injectorInject 0.6 mg subcutaneously once daily. After one week increase to 1.2mg dailyDisp: 2 PenRfl: 1 Insulin [place], Disposable, 32 gauge x 5/16 ndleUse once daily with VictozaDisp: 100 EachRfl: 5 Prescriptions as of 04/30/2018 Sig: LIRAGLUTIDE 0.6 MG/0.1 ML (18* Inject 0.6 mg subcutaneously * PEN NEEDLE, DIABETIC 32 GAUGE* Use once daily with Victoza HYDROCODONE 5 MG-ACETAMINOPHE* Take 1 tablet by mouth every * CIPROFLOXACIN 500 MG TABLET Take 500 mg by mouth twice da* BACTRIM ORAL Take by mouth twice daily. BUSPIRONE 15 MG TABLET Take 1/2 a tab by mouth twice* PREGABALIN 25 MG CAPSULE Take 1 capsule by mouth once * ATORVASTATIN 10 MG TABLET Take 1 tablet by mouth once d* DULOXETINE 60 MG CAPSULE,SHERRY* Take 1 capsule by mouth once * LISINOPRIL 2.5 MG TABLET Take 1 tablet by mouth once d* METFORMIN ER 500 MG TABLET,EX* Take 2 tablets by mouth twice* PROPRANOLOL 10 MG TABLET Take 1 tablet by mouth twice * FLUTICASONE 50 MCG/ACTUATION * Use 2 Sprays in each nostril * LORATADINE 10 MG TABLET Take 1 tablet by mouth once d* PSEUDOEPHEDRINE 30 MG CAPSULE* Take 1-2 tablets by mouth sarah* ZOLPIDEM 10 MG TABLET Take 1 tablet by mouth as nee* BLOOD-GLUCOSE METER Dispense 1 meter kit. Dx: Ot* LANCETS Test blood sugar 2 times/day* BLOOD SUGAR DIAGNOSTIC STRIPS Test blood sugar(s) 2 times d* COMPOUNDED PRESCRIPTION Stoma catheter tube. DX: Qo5* POLYETHYLENE GLYCOL 3350 17 G* Take 17 g by mouth once daily. OXYBUTYNIN CHLORIDE ER 10 MG * Take 1 tablet by mouth once d* HYDROXYZINE PAMOATE 25 MG CAP* Take 1 capsule by mouth three* Problem List As Of Date 04/30/2018 Noted Resolved Threatened , antepartum [O20.0] INVALID FOR*04/07/2011 Supervision of normal first [Z34.00] INVALID FOR*04/07/2011 Cyst of ovary [N83.209] INVALID FOR* Depressive disorder, not elsewhere classified [*INVALID FOR*01/06/2016 More... Anxiety [F41.9] INVALID FOR* More... Dysthymic disorder [F34.1] More... Panic attacks [F41.0] Neck pain [M54.2] INVALID FOR* Cervical radiculopathy [M54.12] INVALID FOR* Weakness of both upper extremities [R29.898] INVALID FOR* More... Muscle weakness of lower extremity [M62.81] INVALID FOR* More... Numbness and tingling of left arm and leg [R20.*INVALID FOR* Abnormal sensation of left upper and lower extr*INVALID FOR*01/06/2016 Lipomeningocele (HCC) [Q05.9] INVALID FOR* Lumbago [M54.5] INVALID FOR* Neuropathy (HCC) [G62.9] INVALID FOR* More... Morbid obesity (HCC) [E66.01] INVALID FOR* Chronic pain [G89.29] INVALID FOR* Neurogenic bladder [N31.9] INVALID FOR* Hydronephrosis, right [N13.30] INVALID FOR* History of kidney stones [Z87.442] INVALID FOR* Spina bifida (HCC) [Q05.9] INVALID FOR* More... Neurogenic bowel [K59.2] INVALID FOR* Primary insomnia [F51.01] INVALID FOR* 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)*INVALID FOR* Pyelonephritis [N12] INVALID FOR* Diabetic eye exam (HCC) [Z01.00, E11.9] INVALID FOR* More... Migraine without aura and without status migrai*INVALID FOR*02/28/2018 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)*INVALID FOR* Well adult exam [Z00.00] INVALID FOR* More... Paroxysmal SVT (supraventricular tachycardia) (*INVALID FOR* More... DM (diabetes mellitus), secondary, uncontrolled*INVALID FOR* S/P hernia repair [Z98.890, Z87.19] INVALID FOR* Thyroid cyst [E04.1] INVALID FOR* More... Migraine without aura and without status migrai*INVALID FOR* Medicare annual wellness visit, subsequent [Z00*INVALID FOR* More... Mixed hyperlipidemia [E78.2] INVALID FOR* History of recurrent UTIs [Z87.440] INVALID FOR* Other instructions from your clinician: [facility] - glucometer, test strips, how to get from them Victoza 0.6mg daily, after one week 1.2mg daily Stop glimepiride Check sugars every morning before breakfast Bring machine next appointment Emely Aguiar, [place], [facility] [phone] Prescriptions ordered this encounter Disp Refills Start End LIRAGLUTIDE 0.6 MG/0.1 ML (18 MG/3 M* 2 Pen 1 04/30/2018 Route: SUBCUTANEOUS Sig: Inject 0.6 mg subcutaneously once daily. After one week increase to 1.2mg daily PEN NEEDLE, DIABETIC 32 GAUGE X 5/16 100 * 5 04/30/2018 Sig: Use once daily with Victoza Medications Discontinued During This Encounter glimepiride (AMARYL) 4 mg tablet 30 t* 5 02/28/2018 04/30/2018 Route: ORAL Sig: Take 1 tablet by mouth daily with breakfast. Disc: Reason for discontinue is not on file. Encounter Status:Closed by COSME (PHARMACIST)EMELY on 04/30/18 PROGRESS Observed: 04/26/2018 Status: COMPLETED Source: [place] 10:[address] [facility] REPOSITORY HNO ID: [id number] Author: Brittney Cook RN Service: (none) Author Type: (none) Type: Progress Notes Filed: 04/27/2018 11:29 PM Note Text: UNIVERSAL PROTOCOL / SAFETY CHECKLIST Procedure to be performed: partial nail avulsion, L hallux medial border Sign in Communication: Completed Time Out: Team Confirms the Correct Patient, Correct Procedure, Correct Site and Site Marking, Correct Position (if applicable), Prep and Dry Time (if applicable). Time: 1032 Affirmation of Time Out: YES Sign Out Discussion: Completed Brittney Cook RN PROGRESS Observed: 04/26/2018 Status: COMPLETED Source: [place] 9:[address] [facility] REPOSITORY HNO ID: [id number] Author: Gavin Gomez Service: (none) Author Type: Physician Type: Progress Notes Filed: 04/27/2018 11:29 PM Note Text: Chief Complaint: This 37 year old female who presents with chief complaint:infected ingrowing toenail of left hallux HPI Patient presents to clinic for evaluation of left hallux Patient states that last , she noticed redness and drainage to left hallux. Patient presented to emergency room. She was diagnosed with infected ingrowing toenail. She was given cipro and bactrim. Patient feels the toe is slowly improving but there is pain. She went back to er and patient was given norco. Patient complains of pain to the medial nail border of left hallux. Patient is diabetic and reports that her a1c in January was 8.2. Patient now has wound of left lateral ankle. She states that her diabetic shoe was rubbing her ankle and now has a wound. PAIN EVALUATION 04/26/2018 Pain Score: 7 Pain Location: Toe left Description: Stabbing Duration Amount of Time: 1 Duration Units: Weeks Intervention: Medication norco as needed Hemoglobin A1C (%) Date Value 02/13/2018 8.3 10/10/2017 8.9 06/02/2017 8.1 01/27/2017 7.2 10/17/2016 7.2 PCP: Will Dietz MD PAST MEDICAL HISTORY Diagnosis Date - Abnormal sensation of left upper and lower extremity 08/07/2013 - Anxiety - Arthritis started age 19 - Cervical radiculopathy 05/02/2013 - Chronic pain 02/12/2015 - Cyst of ovary 11/28/2011 - DJD (degenerative joint disease), thoracic - DM (diabetes mellitus), secondary, uncontrolled, w/renal complications ([facility]) 12/05/2017 - Dysthymic disorder Depression (non-psychotic), sees BRIM SHAPER at [facility]. 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 Seeing Dr. Gregg - Numbness and tingling of left arm and leg 08/07/2013 - Panic attacks - Paroxysmal SVT (supraventricular tachycardia) ([facility]) 07/03/2017 Per 48 Hr event monitor 06/30/2017 - Primary insomnia 02/17/2016 - Spina bifida (HCC) 01/06/2016 - Thyroid cyst 01/01/2018 Complex right sided cysts. US 12/2017, biopsy per Dr. Josue 01/23/2018 benign. Repeat US in a year. - 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) 10/18/2016 - 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) 02/19/2016 - Ulcer of left foot (HCC) 02/21/2017 - Ventral hernia without obstruction or gangrene - Weakness of both upper extremities 08/07/2013 Chronic Current Outpatient Prescriptions: HYDROcodone-acetaminophen (NORCO) 5-325 mg per tablet Take 1 tablet by mouth every 6 hours as needed. ciprofloxacin HCl (CIPRO) 500 mg tablet Take 500 mg by mouth twice daily. sulfamethoxazole/trimethoprim (BACTRIM ORAL) Take by mouth twice daily. busPIRone (BUSPAR) 15 mg tablet Take 1/2 a tab by mouth twice a day for 2 weeks than one twice a day. pregabalin (LYRICA) 25 mg capsule Take 1 capsule by mouth once daily. Per Neurology Dr. Calix atorvastatin (LIPITOR) 10 mg tablet Take 1 tablet by mouth once daily. glimepiride (AMARYL) 4 mg tablet Take 1 tablet by mouth daily with breakfast. DULoxetine (CYMBALTA) 60 mg capsule Take 1 capsule by mouth once daily. metFORMIN ER (GLUCOPHAGE XR) 500 mg 24 hr tablet Take 2 tablets by mouth twice daily. propranolol (INDERAL) 10 mg tablet Take 1 tablet by mouth twice daily. fluticasone (FLONASE) 50 mcg/actuation nasal spray Use 2 Sprays in each nostril once daily. Rinse mouth after use. loratadine (CLARITIN) 10 mg tablet Take 1 tablet by mouth once daily. pseudoephedrine HCl 30 mg CsTR Take 1-2 tablets by mouth every 6 hours as needed. zolpidem (AMBIEN) 10 mg tab Take 1 tablet by mouth as needed. Blood-Glucose Meter (ACCU-CHEK ANISH) [facility] [place] [place] 1 meter kit. Dx: Other DM Code E13.29 Lancets (ACCU-CHEK FASTCLIX) lancets Test blood sugar 2 times/day. Dx: Other DM Code E13.29 Insulin Use: No blood sugar diagnostic (ACCU-CHEK SMARTVIEW TEST STRIP) test strip Test blood sugar(s) 2 times daily. Dx: Other DM Code E13.29 Insulin: No COMPOUNDED PRESCRIPTION Stoma catheter tube.DX: Qo5.4 and K59.2 polyethylene glycol 3350 (MIRALAX) 17 gram/dose powder Take 17 g by mouth once daily. oxybutynin ER (DITROPAN XL) 10 mg 24 hr tablet Take 1 tablet by mouth once daily. hydrOXYzine pamoate (VISTARIL) 25 mg capsule Take 1 capsule by mouth three times daily as needed. [facility] lisinopril 2.5 mg tablet Take 1 tablet by mouth once daily. No current facility-administered medications for this visit. ALLERGIES Allergen Reactions - Mushroom Anaphylaxis - Peanuts Anaphylaxis - Mri Contrast [Gadol* GI Upset PAST SURGICAL HISTORY Procedure Laterality Date - 2D ECHO (EXEP) 06/28/2017 EF=65%. nl - DANDC, DIAG AND/OR THERAPEUTIC Dilation AND curettage - PAST SURGICAL HISTORY OF cholecystectomy - PAST SURGICAL HISTORY OF 09/2012 back surgery x2 - PAST SURGICAL HISTORY OF Left AND 02/2014 foot x2 - PAST SURGICAL HISTORY OF 07/2015 [place] stoma - REPAIR UMBILICAL HERNIA 12/11/2017 - STRESS TEST 07/18/2017 normal - STRESS TEST 03/15/2018 negative FAMILY HISTORY Problem Relation Age of Onset - Arthritis Mother - Diabetes Mother - Heart Mother - Hypertension Mother - Lipids Mother - Stroke Mother - Thyroid Mother - Cancer Father Skin - Cancer Maternal Grandmother LIVER CANCER - Cancer Maternal Uncle Great Uncle - Cancer Maternal Uncle Great Uncle Social History Marital status: Spouse name: MEHDI Years of education: 12 Number of children: 0 Occupational History Occupation Employer Comment [employer], 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 Social History Main Topics Smoking status: Never Smoker Smokeless tobacco: Never Used Alcohol use: Yes Comment: SOCIALLY Drug use: No Sexual activity: Not Currently Partners with: Male control/protection: None Other Topics Concern Caffeine Concern Yes Comment:soda at times Special Diet Yes Comment:portion control Exercise Yes Comment:walks as much as she can REVIEW OF SYSTEMS GENERAL: Negative for Malaise, significant weight loss, fever RESPIRATORY: Negative for cough, wheezing and shortness of breath CARDIOVASCULAR: Negative for chest pain, leg swelling and palpitations GI: Negative for abdominal discomfort, blood in stools or black stools and change in bowel habits : Negative for dysuria, frequency and incontinence MUSCULOSKELETAL: Negative for joint pain or swelling, back pain, and muscle pain. SKIN: ingrowing toenail of left hallux medial nail border. Ulceration of left lateral ankle. HEMATOLOGY/LYMPHOLOGY Negative for prolonged bleeding, bruising easily, and swollen nodes. ENDOCRINE: Negative for cold or heat intolerance, polyuria, polydipsia and goiter. NEURO: negative Physical Exam: Constitutional: Pt is a well developed 37 year old female who is alert, oriented and cooperative Eyes: Following during examination. No redness or drainage. Respiratory: RR normal and nonlabored. Even breathing. No evidence of distress or shortness of breath. Psychology: Patient is engaged during conversation. Normal affect and mood. Does not appear depressed or anxious during encounter. Vascular: Dorsalis pedis and posterior tibial pulses faintly palpable but triphasic with doppler b/l Capillary Fill time < 5 seconds to digits 1-5 b/l Skin temperature warm to warm proximal to distal b/l Hair growth present to digits Neurological: absent light touch/epicritic sensation Vibratory sensation absent b/l absent protective sensation + significant neurological deficits Dermatological: Left hallux medial nail border is ingrowing with severe thickening of medial nail fold. There is pain with direct palpation. There is very minimal drainage. Webspaces clean and dry 1-4 b/l. Skin appears well hydrated and supple. good color, texture, turgor. There is hyperkeratosis present to right 5th metatarsal. There is superficial, nonifected ulceration of left lateral ankle with frederick-wound hyperkeratosis. Musculoskeletal/Orthopaedic: Patient has pain to palpation of left hallux medial nail border Foot type is neutral structurally AJ ROM is decreased with knee extended and flexed 1st MPJ is decreased when loaded and no pain or crepitus are noted with ROM. MTJ, STJ are full and free of pain and crepitus. +5/5 muscle strength dorsiflexion, plantarflexion, inversion, eversion b/l Radiographs: 3 views left foot reviewed from outside hospital. No cortical destruction to indicate osteomyelitis. ASSESSMENT: (L60.0) Ingrowing toenail (primary encounter diagnosis) (L97.321) Skin ulcer of left ankle, limited to breakdown of skin (HCC) (L85.9) Hyperkeratosis (E11.49) Other diabetic neurological complication associated with type 2 diabetes mellitus (HCC) PLAN: 1. History and physical examination performed. 2. Discussed ingrowing toenail of left hallux. There is severe incurvation of medial nail border with hyperkeratotic medial nail fold. There is minimal serous drainage. There is pain with direct palpation. She is on antibiotic. She will continue. Reviewed xrays of left foot. There are no signs of bone destruction to indicate osteomyelitis. Discussed options for ingrowing toenail. Discussed partial vs total nail avulsion vs performing partial vs total matrixectomy once infection completely resolves. Patient is in pain. She would like to proceed with partial nail avulsion today. 3. Discussed risks of procedure not limited to recurrent nail growth, worsening infection, slow wound healing due to diabetes, potential loss of her toe. Patient consents to proceed with partial nail avulsion of left hallux medial nail border. 4. Discussed callus of right 1st metatarsal. Callus was debrided with sanding disk. 5. Ulceration of left ankle debrided with tissue nippers of nonviable tissue. There does not appear to be any signs of infection. Recommend praveena and use of richard wrap from toes to knees. 6. Discussed risks of toenail procedure not limited to infection, pain, swelling, bleeding, painful scarring, recurrence, need for revised procedure, loss of toe. ?Patient consented to proceed. ?Patient was properly identified by name and procedure. ?The left?hallux was then injected with 1.5 cc of 0.5% Marcaine plain and 1.5 cc of 2% lidocaine plain in a 50/50 mixture. ?The toe was then prepped and draped in the usual aseptic technique. ?A digital tournicot was applied to the toe. ?The medial nail fold was then freed and removed. ?Careful inspection was performed to assure no remaining spicule present. ?The medial nail fold was then debrided of nonviable tissue. The wound was then irrigated with normal saline. ?Sterile dressing was then applied consisting of amerigel, guaze, herson and coban. ?Tournicot was removed and hyperemic response was noted. ?Patient tolerated well. ?Patient will f/u in 1 weeks. 7. Discussed patient need for compliance and regular follow- up. I have not seen her in over one year. Patient will benefit from regularly scheduled podiatry visits. 8. Will arrange for new diabetic shoes once ulceration heals of left ankle. Continue with surgical shoe for now. Gavin Gomez DPM CNOV Observed: 04/26/2018 Status: COMPLETED Source: [place] 9:[address] [facility] REPOSITORY Office Visit (PODIWS) DEBBY BAILON ([id number]) 1980 F Date Time Provider Department 04/26/18 9:10 AM GAVIN GOMEZ POD[facility]ANS During your visit today, we recorded the following information about you: Gavin Gomez DPM 04/27/2018 11:29 PM Signed Chief Complaint: This 37 year old female who presents with chief complaint:infected ingrowing toenail of left hallux HPI Patient presents to clinic for evaluation of left hallux Patient states that last , she noticed redness and drainage to left hallux. Patient presented to emergency room. She was diagnosed with infected ingrowing toenail. She was given cipro and bactrim. Patient feels the toe is slowly improving but there is pain. She went back to er and patient was given norco. Patient complains of pain to the medial nail border of left hallux. Patient is diabetic and reports that her a1c in January was 8.2. Patient now has wound of left lateral ankle. She states that her diabetic shoe was rubbing her ankle and now has a wound. PAIN EVALUATION 04/26/2018 Pain Score: 7 Pain Location: Toe left Description: Stabbing Duration Amount of Time: 1 Duration Units: Weeks Intervention: Medication norco as needed Hemoglobin A1C (%) Date Value 02/13/2018 8.3 10/10/2017 8.9 06/02/2017 8.1 01/27/2017 7.2 10/17/2016 7.2 PCP: Will Dietz MD PAST MEDICAL HISTORY Diagnosis Date - Abnormal sensation of left upper and lower extremity 08/07/2013 - Anxiety - Arthritis started age 19 - Cervical radiculopathy 05/02/2013 - Chronic pain 02/12/2015 - Cyst of ovary 11/28/2011 - DJD (degenerative joint disease), thoracic - DM (diabetes mellitus), secondary, uncontrolled, w/renal complications (HCC) 12/05/2017 - Dysthymic disorder Depression (non-psychotic), sees BRIM SHAPER at [facility]. - History of kidney stones 01/04/2016 - History of recurrent UTIs 11/28/2011 - Hydronephrosis, right 01/04/2016 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 - Lumbago 02/12/2015 - Migraine without aura and without status migrainosus, not intractable 10/18/2016 - Miscarriage - Morbid obesity ([facility]) 02/12/2015 - Muscle weakness of left lower extremity 08/07/2013 - Neck pain 05/02/2013 - Neurogenic bladder 02/12/2015 - Neurogenic bowel 01/06/2016 - Neuropathy ([facility]) 02/12/2015 post back surgery with secondary infection. Seeing Dr. Gregg - Numbness and tingling of left arm and leg 08/07/2013 - Panic attacks - Paroxysmal SVT (supraventricular tachycardia) ([facility]) 07/03/2017 Per 48 Hr event monitor 06/30/2017 - Primary insomnia 02/17/2016 - Spina bifida ([facility]) 01/06/2016 - Thyroid cyst 01/01/2018 Complex right sided cysts. US 12/2017, biopsy per Dr. Josue 01/23/2018 benign. Repeat US in a year. - Type 2 diabetes mellitus with albuminuria ([facility]) 10/18/2016 - Type 2 diabetes mellitus with proteinuria ([facility]) 02/19/2016 - Ulcer of left foot ([facility]) 02/21/2017 - Ventral hernia without obstruction or gangrene - Weakness of both upper extremities 08/07/2013 Chronic Current Outpatient Prescriptions: HYDROcodone-acetaminophen (NORCO) 5-325 mg per tablet Take 1 tablet by mouth every 6 hours as needed. ciprofloxacin HCl (CIPRO) 500 mg tablet Take 500 mg by mouth twice daily. sulfamethoxazole/trimethoprim (BACTRIM ORAL) Take by mouth twice daily. busPIRone (BUSPAR) 15 mg tablet Take 1/2 a tab by mouth twice a day for 2 weeks than one twice a day. pregabalin (LYRICA) 25 mg capsule Take 1 capsule by mouth once daily. Per Neurology Dr. Calix atorvastatin (LIPITOR) 10 mg tablet Take 1 tablet by mouth once daily. glimepiride (AMARYL) 4 mg tablet Take 1 tablet by mouth daily with breakfast. DULoxetine (CYMBALTA) 60 mg capsule Take 1 capsule by mouth once daily. metFORMIN ER (GLUCOPHAGE XR) 500 mg 24 hr tablet Take 2 tablets by mouth twice daily. propranolol (INDERAL) 10 mg tablet Take 1 tablet by mouth twice daily. fluticasone (FLONASE) 50 mcg/actuation nasal spray Use 2 Sprays in each nostril once daily. Rinse mouth after use. loratadine (CLARITIN) 10 mg tablet Take 1 tablet by mouth once daily. pseudoephedrine HCl 30 mg CsTR Take 1-2 tablets by mouth every 6 hours as needed. zolpidem (AMBIEN) 10 mg tab Take 1 tablet by mouth as needed. Blood-Glucose Meter (ACCU-CHEK ANISH) [facility] [place] 1 meter kit. Dx: Other DM Code E13.29 Lancets (ACCU-CHEK FASTCLIX) lancets Test blood sugar 2 times/day. Dx: Other DM Code E13.29 Insulin Use: No blood sugar diagnostic (ACCU-CHEK SMARTVIEW TEST STRIP) test strip Test blood sugar(s) 2 times daily. Dx: Other DM Code E13.29 Insulin: No COMPOUNDED PRESCRIPTION Stoma catheter tube.DX: Qo5.4 and K59.2 polyethylene glycol 3350 (MIRALAX) 17 gram/dose powder Take 17 g by mouth once daily. oxybutynin ER (DITROPAN XL) 10 mg 24 hr tablet Take 1 tablet by mouth once daily. hydrOXYzine pamoate (VISTARIL) 25 mg capsule Take 1 capsule by mouth three times daily as needed. [facility] lisinopril 2.5 mg tablet Take 1 tablet by mouth once daily. No current facility-administered medications for this visit. ALLERGIES Allergen Reactions - Mushroom Anaphylaxis - Peanuts Anaphylaxis - Mri Contrast [Gadol* GI Upset PAST SURGICAL HISTORY Procedure Laterality Date - 2D ECHO (EXEP) 06/28/2017 EF=65%. nl - DANDC, DIAG AND/OR THERAPEUTIC Dilation AND curettage - PAST SURGICAL HISTORY OF cholecystectomy - PAST SURGICAL HISTORY OF 09/2012 back surgery x2 - PAST SURGICAL HISTORY OF Left AND 02/2014 foot x2 - PAST SURGICAL HISTORY OF 07/2015 [place] stoma - REPAIR UMBILICAL HERNIA 12/11/2017 - STRESS TEST 07/18/2017 normal - STRESS TEST 03/15/2018 negative FAMILY HISTORY Problem Relation Age of Onset - Arthritis Mother - Diabetes Mother - Heart Mother - Hypertension Mother - Lipids Mother - Stroke Mother - Thyroid Mother - Cancer Father Skin - Cancer Maternal Grandmother LIVER CANCER - Cancer Maternal Uncle Great Uncle - Cancer Maternal Uncle Great Uncle Social History Marital status: Spouse name: MEHDI Years of education: 12 Number of children: 0 Occupational History Occupation Employer Comment ST[employer]FF [employer] thru, 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 Social History Main Topics Smoking status: Never Smoker Smokeless tobacco: Never Used Alcohol use: Yes Comment: SOCIALLY Drug use: No Sexual activity: Not Currently Partners with: Male control/protection: None Other Topics Concern Caffeine Concern Yes Comment:soda at times Special Diet Yes Comment:portion control Exercise Yes Comment:walks as much as she can REVIEW OF SYSTEMS GENERAL: Negative for Malaise, significant weight loss, fever RESPIRATORY: Negative for cough, wheezing and shortness of breath CARDIOVASCULAR: Negative for chest pain, leg swelling and palpitations GI: Negative for abdominal discomfort, blood in stools or black stools and change in bowel habits : Negative for dysuria, frequency and incontinence MUSCULOSKELETAL: Negative for joint pain or swelling, back pain, and muscle pain. SKIN: ingrowing toenail of left hallux medial nail border. Ulceration of left lateral ankle. HEMATOLOGY/LYMPHOLOGY Negative for prolonged bleeding, bruising easily, and swollen nodes. ENDOCRINE: Negative for cold or heat intolerance, polyuria, polydipsia and goiter. NEURO: negative Physical Exam: Constitutional: Pt is a well developed 37 year old female who is alert, oriented and cooperative Eyes: Following during examination. No redness or drainage. Respiratory: RR normal and nonlabored. Even breathing. No evidence of distress or shortness of breath. Psychology: Patient is engaged during conversation. Normal affect and mood. Does not appear depressed or anxious during encounter. Vascular: Dorsalis pedis and posterior tibial pulses faintly palpable but triphasic with doppler b/l Capillary Fill time < 5 seconds to digits 1-5 b/l Skin temperature warm to warm proximal to distal b/l Hair growth present to digits Neurological: absent light touch/epicritic sensation Vibratory sensation absent b/l absent protective sensation + significant neurological deficits Dermatological: Left hallux medial nail border is ingrowing with severe thickening of medial nail fold. There is pain with direct palpation. There is very minimal drainage. Webspaces clean and dry 1-4 b/l. Skin appears well hydrated and supple. good color, texture, turgor. There is hyperkeratosis present to right 5th metatarsal. There is superficial, nonifected ulceration of left lateral ankle with frederick-wound hyperkeratosis. Musculoskeletal/Orthopaedic: Patient has pain to palpation of left hallux medial nail border Foot type is neutral structurally AJ ROM is decreased with knee extended and flexed 1st MPJ is decreased when loaded and no pain or crepitus are noted with ROM. MTJ, STJ are full and free of pain and crepitus. +5/5 muscle strength dorsiflexion, plantarflexion, inversion, eversion b/l Radiographs: 3 views left foot reviewed from outside hospital. No cortical destruction to indicate osteomyelitis. ASSESSMENT: (L60.0) Ingrowing toenail (primary encounter diagnosis) (L97.321) Skin ulcer of left ankle, limited to breakdown of skin (HCC) (L85.9) Hyperkeratosis (E11.49) Other diabetic neurological complication associated with type 2 diabetes mellitus (HCC) PLAN: 1. History and physical examination performed. 2. Discussed ingrowing toenail of left hallux. There is severe incurvation of medial nail border with hyperkeratotic medial nail fold. There is minimal serous drainage. There is pain with direct palpation. She is on antibiotic. She will continue. Reviewed xrays of left foot. There are no signs of bone destruction to indicate osteomyelitis. Discussed options for ingrowing toenail. Discussed partial vs total nail avulsion vs performing partial vs total matrixectomy once infection completely resolves. Patient is in pain. She would like to proceed with partial nail avulsion today. 3. Discussed risks of procedure not limited to recurrent nail growth, worsening infection, slow wound healing due to diabetes, potential loss of her toe. Patient consents to proceed with partial nail avulsion of left hallux medial nail border. 4. Discussed callus of right 1st metatarsal. Callus was debrided with sanding disk. 5. Ulceration of left ankle debrided with tissue nippers of nonviable tissue. There does not appear to be any signs of infection. Recommend praveena and use of richard wrap from toes to knees. 6. Discussed risks of toenail procedure not limited to infection, pain, swelling, bleeding, painful scarring, recurrence, need for revised procedure, loss of toe. ?Patient consented to proceed. ?Patient was properly identified by name and procedure. ?The left?hallux was then injected with 1.5 cc of 0.5% Marcaine plain and 1.5 cc of 2% lidocaine plain in a 50/50 mixture. ?The toe was then prepped and draped in the usual aseptic technique. ?A digital tournicot was applied to the toe. ?The medial nail fold was then freed and removed. ?Careful inspection was performed to assure no remaining spicule present. ?The medial nail fold was then debrided of nonviable tissue. The wound was then irrigated with normal saline. ?Sterile dressing was then applied consisting of amerigel, guaze, herson and coban. ?Tournicot was removed and hyperemic response was noted. ?Patient tolerated well. ?Patient will f/u in 1 weeks. 7. Discussed patient need for compliance and regular follow- up. I have not seen her in over one year. Patient will benefit from regularly scheduled podiatry visits. 8. Will arrange for new diabetic shoes once ulceration heals of left ankle. Continue with surgical shoe for now. ERIC Boland RN 04/27/2018 11:29 PM Signed UNIVERSAL PROTOCOL / SAFETY CHECKLIST Procedure to be performed: partial nail avulsion, L hallux medial border Sign in Communication: Completed Time Out: Team Confirms the Correct Patient, Correct Procedure, Correct Site and Site Marking, Correct Position (if applicable), Prep and Dry Time (if applicable). Time: 1032 Affirmation of Time Out: YES Sign Out Discussion: Completed Brittney Cook RN 04/26/2018 10:45 AM Addendum Apply Praveena and RICHARD bandage to L ankle wound daily. Post-Op Nail Instructions Minimize activity until the anesthesia wears off (about 2- 8 hours). Increase activity to tolerance Remove bandage tomorrow Soak affected toe/foot in epsom salts for 15-20 minutes twice daily After soaking, apply antibiotic ointment (OTC Neosporin) to affected toe and re bandage OTC Ibuprofen if having pain, provided you have no allergies or intolerance to NSAIDS Mild drainage, redness, and blood is expected, but if you expeirence severe pain, increase in drainage, swelling, or red streaking please contact our office immediately Feel free to contact office as well if you have any questions/concerns [phone], ask for Podiatry Nurse Referring Provider: GAVIN GOMEZ [[id number]] Allergies As of Date: 04/26/2018 Noted Allergy Reaction MUSHROOM 06/10/2016 10 - Anaphylaxis PEANUTS 06/10/2016 10 - Anaphylaxis MRI CONTRAST (GADOLINIUM-CONTAINI*01/03/2017 8 - GI Upset Date Reviewed: 04/26/2018 Reviewed by: Bernard (Rn) Dimple - Fully Assessed Reason for Visit: Established Patient [175] Cmt: follow-up left hallux; see telephone note dated 04/23/18 Primary Visit Diagnosis:Ingrowing toenail [L60.0] Other Visit Diagnoses:Skin ulcer of left ankle, limited to breakdown of skin (HCC) [L97.321] Hyperkeratosis [L85.9] Other diabetic neurological complication associated with type 2 diabetes mellitus (HCC) [E11.49] Prescriptions as of 04/26/2018 Sig: HYDROCODONE 5 MG-ACETAMINOPHE* Take 1 tablet by mouth every * CIPROFLOXACIN 500 MG TABLET Take 500 mg by mouth twice da* BACTRIM ORAL Take by mouth twice daily. BUSPIRONE 15 MG TABLET Take 1/2 a tab by mouth twice* PREGABALIN 25 MG CAPSULE Take 1 capsule by mouth once * ATORVASTATIN 10 MG TABLET Take 1 tablet by mouth once d* GLIMEPIRIDE 4 MG TABLET Take 1 tablet by mouth daily * DULOXETINE 60 MG CAPSULE,SHERRY* Take 1 capsule by mouth once * METFORMIN ER 500 MG TABLET,EX* Take 2 tablets by mouth twice* PROPRANOLOL 10 MG TABLET Take 1 tablet by mouth twice * FLUTICASONE 50 MCG/ACTUATION * Use 2 Sprays in each nostril * LORATADINE 10 MG TABLET Take 1 tablet by mouth once d* PSEUDOEPHEDRINE 30 MG CAPSULE* Take 1-2 tablets by mouth sarah* ZOLPIDEM 10 MG TABLET Take 1 tablet by mouth as nee* BLOOD-GLUCOSE METER Dispense 1 meter kit. Dx: Ot* LANCETS Test blood sugar 2 times/day* BLOOD SUGAR DIAGNOSTIC STRIPS Test blood sugar(s) 2 times d* COMPOUNDED PRESCRIPTION Stoma catheter tube. DX: Qo5* POLYETHYLENE GLYCOL 3350 17 G* Take 17 g by mouth once daily. OXYBUTYNIN CHLORIDE ER 10 MG * Take 1 tablet by mouth once d* HYDROXYZINE PAMOATE 25 MG CAP* Take 1 capsule by mouth three* LISINOPRIL 2.5 MG TABLET Take 1 tablet by mouth once d* Problem List As Of Date 04/26/2018 Noted Resolved Threatened , antepartum [O20.0] INVALID FOR*04/07/2011 Supervision of normal first [Z34.00] INVALID FOR*04/07/2011 Cyst of ovary [N83.209] INVALID FOR* Depressive disorder, not elsewhere classified [*INVALID FOR*01/06/2016 More... Anxiety [F41.9] INVALID FOR* More... Dysthymic disorder [F34.1] More... Panic attacks [F41.0] Neck pain [M54.2] INVALID FOR* Cervical radiculopathy [M54.12] INVALID FOR* Weakness of both upper extremities [R29.898] INVALID FOR* More... Muscle weakness of lower extremity [M62.81] INVALID FOR* More... Numbness and tingling of left arm and leg [R20.*INVALID FOR* Abnormal sensation of left upper and lower extr*INVALID FOR*01/06/2016 Lipomeningocele (HCC) [Q05.9] INVALID FOR* Lumbago [M54.5] INVALID FOR* Neuropathy (HCC) [G62.9] INVALID FOR* More... Morbid obesity (HCC) [E66.01] INVALID FOR* Chronic pain [G89.29] INVALID FOR* Neurogenic bladder [N31.9] INVALID FOR* Hydronephrosis, right [N13.30] INVALID FOR* History of kidney stones [Z87.442] INVALID FOR* Spina bifida (HCC) [Q05.9] INVALID FOR* More... Neurogenic bowel [K59.2] INVALID FOR* Primary insomnia [F51.01] INVALID FOR* 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)*INVALID FOR* Pyelonephritis [N12] INVALID FOR* Diabetic eye exam (HCC) [Z01.00, E11.9] INVALID FOR* More... Migraine without aura and without status migrai*INVALID FOR*02/28/2018 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)*INVALID FOR* Well adult exam [Z00.00] INVALID FOR* More... Paroxysmal SVT (supraventricular tachycardia) (*INVALID FOR* More... DM (diabetes mellitus), secondary, uncontrolled*INVALID FOR* S/P hernia repair [Z98.890, Z87.19] INVALID FOR* Thyroid cyst [E04.1] INVALID FOR* More... Migraine without aura and without status migrai*INVALID FOR* Medicare annual wellness visit, subsequent [Z00*INVALID FOR* More... Mixed hyperlipidemia [E78.2] INVALID FOR* History of recurrent UTIs [Z87.440] INVALID FOR* Other instructions from your clinician: Apply Praveena and RICHARD bandage to L ankle wound daily. Post-Op Nail Instructions Minimize activity until the anesthesia wears off (about 2-8 hours). Increase activity to tolerance Remove bandage tomorrow Soak affected toe/foot in epsom salts for 15-20 minutes twice daily After soaking, apply antibiotic ointment (OTC Neosporin) to affected toe and re bandage OTC Ibuprofen if having pain, provided you have no allergies or intolerance to NSAIDS Mild drainage, redness, and blood is expected, but if you expeirence severe pain, increase in drainage, swelling, or red streaking please contact our office immediately Feel free to contact office as well if you have any questions/concerns [phone], ask for Podiatry Nurse Disposition: Return in about 1 week (around 05/03/2018) for ingrown toenail and ulcer, L ankle. Follow-up and Disposition History Recorded Encounter Status:Closed by GAVIN GOMEZ DPM on 04/27/18 EMERGENCY DEPARTMENT Observed: 04/26/2018 Status: F Source: [place] SUMMARY 8:16 AM [facility] REPOSITORY [facility] Medical Records Department [address] [place] [address] Emergency Department Summary 04/24/18 1628 MR#: [id number] Acct: [id number] Name: DEBBY BAILON Rep #: [id number] : 1980 37 From: Nemesio Sanderson DO PCP: Will Dietz MD Status: DEP ER - ER Visit Summary Date of Service: 04/24/18 Chief Complaint: Ingrown left toenail History of Present Illness: The patient is a 37 F presents with pain in the left great toe.She states that she was seen in the emergency department yesterday and placed on antibiotics (Cipro and Bactrim. She states that she was told to come back if it got worse and she is feels that it is worse. She states that she normally cannot feel anything in her feet now she feels pain. She reports now having an appointment with her french comber at the [facility] on . The patient states that she does her daily once a night soaks with Epsom salts. She has not put a dressing on the wound. She has been wearing socks and shoes. No fevers. She had x-rays yesterday that were negative. She states that there is a black hole that she is seen. She was upset that she was in the room for 30 minutes last night before seen by physician. Physical Examination: Afebrile vital signs stable Gen: Well-nourished well-developed Head: Normocephalic atraumatic Eyes: Perrl EOMI ENT: TMs clear no rhinorrhea moist mucous membranes Neck: Supple no lymphadenopathy no JVD nontender CVS: Regular rate rhythm no murmurs normal S1-S2 Respiratory: No distress clear to auscultation bilaterally chest nontender Abdomen: Soft nontender nondistended normal bowel sounds no masses Extremity: The foot itself is very unkempt. The plantar surface is very thickened and dirty. Lateral posterior part of the ankle demonstrates 1/2 cm long skin erosion. When I look at her shoe the shoe has been eroded and so now they hard plastic that forms the heel cup is now rubbing against her skin causing the injury. She is advised not to wear those shoes and to pad the area and do local wound care. Medial aspect of the left great toenail demonstrates swelling of the cuticle. There is an area of ecchymosis and inflamed tissue. I do not see any necrosis. The fat pad is soft. There is no lymphangitic streaking. There is no obvious paronychia I. There is minimal redness. I do not see any black hole. I believe what she is describing as the black hole is inflamed tissue surrounded by ecchymosis. Skin: Normal color no rash Neuro: alert orientated 3 CN II-XII intact normal strength sensation reflexes gait cerebellar Emergency Department Course and Treatment: Patient should do 3 times daily soaks. She should use bacitracin antibiotic ointment 2 times a day and keep the wound dressed. I will write for a few Lanett. The physical exam suggest more of an ingrown toenail then ingrown toenail with infection however we will keep her on the antibiotics. I believe the patient will have better outcome seeing her french comber and having the toenail removed. She will be given a postop shoe. Impression: 1. Ingrown left toenail This note was generated with EverTune dictation software. It may contain incorrect words, spelling, and punctuation that were not noted in review of the chart prior to signing ED Disposition - Plan for ED Patient: Disposition: Home or Assisted Living Chief Complaint: Wound Check Instructions: Understanding Ingrown Toenails Prescriptions: Hydrocodone Bitart/Apap 5-325 [Lanett 5MG-325MG] 1 tab PO Q6H PRN PRN 3 Days #10 tab PRN Reason: Pain Additional Instructions: 1. See your french comber as scheduled 2. Epson salt soaks 3 times daily for 20 minutes each session. 3. Bacitracin ointment 3 times a day. 4. Keep the wound covered when wearing a sock. Otherwise you can allow the wound to be to the air 5. Postop shoe instead of tennis shoe 6. Ibuprofen 800 mg every 8 hours. 7. Lanett sparingly for severe pain What to do if you have Problems For any increased pain, shortness of breath, bleeding, nausea or vomiting, chest pain, or any unexpected problems, contact your Primary Care Provider. Call [facility] ([phone]) or report to the closest Emergency Room. Call 911 if necessary. 04/26/18 0816 <Electronically signed by Nemesio [place] DO> Date Nemesio Sanderson DO Cosigner Signature (If Indicated): Date CC: Will Dietz MD EMERGENCY DEPARTMENT Observed: 04/23/2018 Status: F Source: [place] SUMMARY 8:29 PM [facility] REPOSITORY [facility] Medical Records Department [address] [place] [address] Emergency Department Summary 04/23/18 1918 MR#: [id number] Acct: [id number] Name: DEBBY BAILON Rep #: [id number] : 1980 37 From: Celine Boateng MD PCP: Will Dietz MD Status: DEP ER - ER Visit Summary Date of Service: 04/23/18 Chief Complaint: Left first toe infection History of Present Illness: The patient is a 37 F with history of spina bifida and neuropathy presents with left first toe infection. Patient states that on Monday, she noted some drainage from the distal aspect of her left great toe. She states that it was mildly painful. She states that she has diminished sensation at baseline, but noticed that there was drainage. She states that her pain had increased. She called her french comber today and was referred to the emergency room. The patient does have history of prior osteomyelitis of the left foot. She states at that time, she had much more pain and there was redness and streaking up her leg. She states that this seems all be contained within the nail. Physical Examination: Exam is relatively unremarkable. Patient does have a small aspect of ingrown nail on the medial aspect of the left great toe. There is no streaking or cellulitis. There is some dried drainage, but no bleeding. She really has no tenderness to palpation. There is no fluctuance. Her pulses are normal. Test Results: [] Emergency Department Course and Treatment: I did obtain plain films. My suspicion is the patient likely has ingrown toenail here. The patient has only had symptoms for 2 or 3 days. She has follow-up with her french comber tomorrow. At this time, I do not suspect osteomyelitis or deep space infection. This is all superficial. I counseled the patient on warm soaks. With her history of MRSA, I am going to cover her with Bactrim and will also add Cipro to cover Pseudomonas. She is not febrile. She is very well-appearing. There is no streaking. There is no pain out of proportion. I do feel that she is safe for outpatient follow-up. Patient is comfortable with this plan of care and she will be discharged. Treatment Plan: [] Disposition: Discharge Impression: 1. Ingrown toenail left foot This note was generated with EverTune dictation software. It may contain incorrect words, spelling, and punctuation that were not noted in review of the chart prior to signing ED Disposition - Plan for ED Patient: Chief Complaint: Wound Check Instructions: ED Toenail Ingrown Infec Abx Onl Prescriptions: Ciprofloxacin [Cipro] 500 mg PO BID #14 tab Smz/Tmp Ds [Bactrim Ds] 1 tab PO BID #14 tab Referrals: Will Dietz MD [Primary Care Provider] - What to do if you have Problems For any increased pain, shortness of breath, bleeding, nausea or vomiting, chest pain, or any unexpected problems, contact your Primary Care Provider. Call [facility] ([phone]) or report to the closest Emergency Room. Call 911 if necessary. 04/23/182028 <Electronically signed by Celine Boateng MD> Date Celine Boateng MD Cosigner Signature (If Indicated): Date CC: Will Dietz MD FOOT MIN 3 VIEWS Observed: 04/23/2018 Status: F Source: PATRIOT 6:43 PM [facility] REPOSITORY [facility] Imaging Services [address] [place] [address] [place] [address] Foot min 3 Views MR#: [id number] Acct: [id number] Name: DEBBY BAILON Rep #: [id number] : 1980 F 37 From: Alexander Peck MD PCP: Will Dietz MD Status: REG ER Study: Foot min 3 Views Date of Exam: 04/23/18 Exam# [id number] Ordering Dr: Celine Boateng MD STUDY: X-RAY - LEFT FOOT CLINICAL: Female, 37 years old. Foot wound TECHNIQUE: 3 view(s) of the foot. COMPARISON: None. 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 There is no evidence of fracture or dislocation. There are no radiodense foreign bodies. There are no definite radiographic findings of osteomyelitis. RAD/Foot min 3 Views IMPRESSION: No definite radiographic findings of osteomyelitis. If indicated, further evaluation with MRI can be performed. No fracture or dislocation. 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 Electronically Signed: Alexander Peck, at 19:13 EST Tel , Service support , CC: Will Dietz MD; Celine Boateng MD Paper Rewinder Operator: Signed EMERGENCY DEPARTMENT Observed: 04/14/2018 Status: F Source: PATRIOT SUMMARY 6:10 PM [facility] REPOSITORY [facility] Medical Records Department [address] [place] [address] Emergency Department Summary 04/14/18 1516 MR#: [id number] Acct: [id number] Name: DEBBY BAILON Rep #: [id number] : 1980 37 From: Arnold Brice PCP: Will Dietz MD Status: REG ER - ER Visit Summary Date of Service: 04/14/18 Chief Complaint: Dysuria, frequency, flank pain History of Present Illness: The patient is a 37 F worsening right flank pain over 3 days. States neurogenic bladder self caths. States had chills and sweats. States been having nausea and vomiting for the past week. Patient's been seen multiple times in the ED in this past week for constipation. States had a bowel movement today with a bowel regimen treatment yesterday. She is a diabetic. She has history of spinal bifida. Denies history of gastric ulcers or kidney injury. Records reviewed, stable labs yesterday, she had urine that did show infection however culture is shown contaminated specimens. White count was trending down from old labs. Physical Examination: General: Alert and oriented 3, mild distress HEENT: Normocephalic, atraumatic. Moist mucosa membranes Neck: supple, nontender. Cardiovascular: Regular rate and rhythm, no murmurs Respiratory: Normal breath sounds, symmetric, no distress Abdomen: Soft, nontender, nondistended Back: Right CVA tenderness, no rash Extremities: Nontender, no edema, pulses intact 4 Neuro: no focal neurological deficits. Test Results: White count 12.9. Hemoglobin 13.3. Creatinine 1.04. Urine cath five-point leukocytes, WBCs 50-103+ bacteria. Urine culture sent and pending. Emergency Department Course and Treatment: Patient vital signs stable, left CVA tenderness no rash. Patient with a CT yesterday with no signs of Efraín. She complains of urine symptoms. I did check labs white count slightly elevated compared to yesterday a cath urine obtained due to contamination yesterday does show infection she is symptomatic should urine culture sent she started on Rocephin. She given Toradol Zofran additional Benadryl due to itching was given. Discussed with patient findings and treatment due to flank pain will treat for 10 days. She does have antiemetics at home. Additional ibuprofen will be written. Discussed avoiding opiates or stronger pain medicine due to her recent constipation history. Patient understands. She has a urologist with [facility]. Treatment Plan: [] Disposition: Discharge Impression: 1. Urinary tract infection 2. Left flank pain This note was generated with Conjectation software. It may contain incorrect words, spelling, and punctuation that were not noted in review of the chart prior to signing ED Disposition - Plan for ED Patient: Disposition: Home or Assisted Living Chief Complaint: Flank Pain Diagnosis: Urinary tract infection, Left flank pain Instructions: ED Kidney Infec Female Prescriptions: Cephalexin [Keflex] 500 mg PO Q12 #20 capsule Ibuprofen 600 mg PO 4X/DAY PRN #20 tablet PRN Reason: Pain Referrals: Will Dietz MD [Primary Care Provider] - 3-5 Days Additional Instructions: Follow up with your urologist in 3-5 days What to do if you have Problems For any increased pain, shortness of breath, bleeding, nausea or vomiting, chest pain, or any unexpected problems, contact your Primary Care Provider. Call [facility] ([phone]) or report to the closest Emergency Room. Call 911 if necessary. 04/14/18 1810 <Electronically signed by Arnold Brice> Date Arnold Brice Cosigner Signature (If Indicated): Date CC: Will Dietz MD URINALYSIS, COMPLETE Collected: 04/14/2018 Status: F Source: NORMA 4:44 PM [facility] REPOSITORY Order Comment: Order Date: 04/14/18 Has pt arrived? Y How was Urine Obtained? CLEAN CATCH TYPE CODE TESTS RESULT OUT OF RANGE REFERENCE UNITS LAB L400.3000 Yellow COLOR Normal Yellow LAB L400.3050 Clear Normal CLARITY Cloudy LAB L400.3200 Normal mg/dl High 50 GLUCOSE, UR LAB L400.3300 Negative mg/dL Normal BILIRUBIN URINE Negative LAB L400.3400 Negative mg/dl Normal KETONE UR Negative LAB L400.3465 1.002-1.030 Normal SP.GR. DIPSTX 1.015 LAB L400.3550 5.0 - 8.0 pH UR Normal 6.0 LAB L400.3600 Negative mg/dl High PROT DIPSTX 100 LAB L400.3700 Normal mg/dl Normal UROBILI Normal LAB L400.3750 Negative Normal NITRITE UR Negative LAB L400.3780 Negative /ul High OCCULT BLOOD-UR 250 LAB L400.3800 Negative /ul High LEUK ESTERASE 500 LAB L400.4050 0-5 /hpf WBC Normal 50-100 SEEN LAB L400.4100 0-5 /hpf 0 Normal RBC-UA SEEN LAB L400.4150 5-10 /hpf SQUAM 0 Normal EPI SEEN LAB L400.4300 None Seen /hpf 3+ Normal BACTERIA LAB L400.4350 <or=2+ /hpf 0 Normal MUCUS, URINE SEEN Performed By: #### L400.0001 #### [facility] [address] [place], [place], [address] Observed: 04/14/2018 Status: F Source: PATRIOT CULTURE, URINE 4:44 PM [facility] REPOSITORY Order Date: 04/14/18 Has pt arrived? Y Urine Culture ORGANISM 1: Streptococcus mitis/ oralis [place] Count >100,000 ORGANISM 2: Staphylococcus epidermidis [place] Count 80,000-100,000 Streptococcus mitis/ oralis: REACTION Ampicillin $ 1 I Benzylpenicillin NF 0.25 I Cefotaxime $ <=0.12 S Ceftriaxone $ <=0.12 S Vancomycin $ 0.25 S (NF) indicates non-formulary drug at [facility]. Approval by Infectious Disease Specialist required before non-formulary drugs may be ordered and/or dispensed. * CLSI guidelines does not recommend testing of cephalosporins. This interpretation is deduced from Beta-lactam/penicillin results. Staphylococcus epidermidis: REACTION Benzylpenicillin NF >=0.5 R Cefoxitin *NF - Inducable Clindamycin Resistan - Gentamicin $ <=0.5 S Levofloxacin $ 4 I Linezolid $$$$ 1 S Nitrofurantoin $ <=16 S Oxacillin NF <=0.25 S Rifampin $$ <=0.5 S Tetracycline NF 2 S Vancomycin $ 1 S (NF) indicates non-formulary drug at [facility]. Approval by Infectious Disease Specialist required before non-formulary drugs may be ordered and/or dispensed. * CLSI guidelines does not recommend testing of cephalosporins. This interpretation is deduced from Beta-lactam/penicillin results. Performed By: #### M100.0650 #### [facility] [address] [place], [address] CBC W/DIFF, AUTOMATED Collected: 04/14/2018 Status: F Source: NORMA 3:25 PM [facility] REPOS[facility] TYPE CODE TESTS RESULT OUT OF RANGE REFERENCE UNITS LAB L100.1000 4.4-11.0 K/mm3 High WBC 12.9 LAB L100.1200 4.2-5.4 M/mm3 Normal RBC 4.42 LAB L100.1300 12.0-15.0 g/dl Normal HGB 13.3 LAB L100.1400 37-47 % Normal HCT 41.1 LAB L100.1500 81-99 fL Normal MCV 93.0 LAB L100.1600 27.0-32.0 pg Normal MCH 30.1 LAB L100.1700 32-36 g/gl Normal MCHC 32.4 LAB L100.1810 11.6-14.6 % Normal RDW CV 13.4 LAB L100.1820 35.1-43.9 fl High RDW SD 45.6 LAB L100.1900 150-450 K/mm3 Normal PLT 175 LAB L100.2000 6.2-12.0 fl Normal MPV 11.2 LAB L100.2100 47-70 % High NEUT% 73.5 LAB L100.2200 19-41 % Low LY% 12.8 LAB L100.2300 0-10 % Normal MONO% 9.4 LAB L100.2400 0-5 % Normal EO% 3.4 LAB L100.2500 0-1 % Normal BASO% 0.4 LAB L100.2550 0.0-0.9 % Normal IM GRAN % 0.500 Result Comment: IG% - Immature Granulocytes (promyelocytes, myelocytes and metamyelocytes) > 1% indicates that a LEFT SHIFT is Present. LAB L100.2620 2.0-7.7 X10 3/uL High Absolute Neut 9.5 LAB L100.2720 0.83-4.51 X10 3/ul Normal Absolute Lymph 1.66 Performed By: #### L100.0100 #### [facility] [address] [place], [address] BASIC METABOLIC Collected: 04/14/2018 Status: F Source: NORMA PROFILE (BMP) 3:25 PM [facility] REPOSIT[facility] TYPE CODE TESTS RESULT OUT OF RANGE REFERENCE UNITS LAB L501.0100 74-106 mg/dL High GLU 163 Result Comment: Fasting Glucose result greater than or equal to 126 mg/dL suggests DIABETES MELLITUS per A.D.A. criteria. Please note revised GLUCOSE reference range effective 2017. LAB L501.1000 7-18 mg/dL Normal BUN 9 LAB L501.1100 0.55-1.02 mg/dL High CREAT,SERUM 1.04 Result Comment: The validity of the calculated GFR AND GFRAA in patients over 70 years has not been determined. Clinical correlation is essential. LAB L501.1110 >60 mL/min Normal EST GFR 64 Result Comment: Non- GFR Calc LAB L501.1115 >60 mL/min Normal EST GFR - AA 77 Result Comment: GFR Calc LAB L501.1255 ml/min Normal Estimated CRCL 59.15 LAB L501.1300 10-20 RATIO Low BUN/CRE 8.7 LAB L501.2200 8.5-10 mg/dL Normal .1 CA 9.2 LAB L501.5300 136-14 mmol/L Normal 5 NA 139 LAB L501.5600 3.5-5. mmol/L Normal 1 K 4.1 LAB L501.5900 98-107 mmol/L Normal CL 105 LAB L501.6100 21.0-3 mmol/L Normal 2.0 CO2 24.0 LAB L501.6200 5-15 Normal GAP 10 Performed By: #### L500.2500 #### [facility] [address] [facility] [place], [address] DISCHARGE INSTRUCTION Observed: 04/14/2018 Status: F Source: PATRIOT 12:55 AM [facility] REPOSITORY [facility] Medical Records Department [address] [place] [address] Discharge Instruction 04/13/18 1935 MR#: [id number] Acct: [id number] Name: DEBBY BAILON Rep #: [id number] : 1980 37 From: Nemesio Pro MD PCP: Will Dietz MD Status: DEP ER ED Disposition - Plan for ED Patient: Chief Complaint: Constipation Instructions: ED Constipation Prescriptions: Mineral Oil 30 ml PO DAILY #420 ml Peg 3350/Na Sulf,Bicarb,Cl/KCl [Golytely Solution] 17 g PO DAILY 14 Days #1 unit Sennosides/Docusate Sodium [Senna-Docusate Sodium Tablet] 2 ea PO BID #56 tab Referrals: Nemesio Josue MD [STAFF PHYSICIAN] - What to do if you have Problems For any increased pain, shortness of breath, bleeding, nausea or vomiting, chest pain, or any unexpected problems, contact your Primary Care Provider. Call [facility] ([phone]) or report to the closest Emergency Room. Call 911 if necessary. 04/14/18 0055 <Electronically signed by Nemesio Pro MD> Date Nemesio Pro MD Cosigner Signature (If Indicated): Date CC: Will Dietz MD EMERGENCY DEPARTMENT Observed: 04/14/2018 Status: F Source: PATRIOT SUMMARY 12:55 AM [facility] REPOSITORY [facility] Medical Records Department [address] [place] [address] Emergency Department Summary 04/13/18 1840 MR#: [id number] Acct: [id number] Name: DEBBY BAILON Rep #: [id number] : 1980 37 From: Nemesio Pro MD PCP: Will Dietz MD Status: DEP ER - ER Visit Summary Date of Service: 04/13/18 Chief Complaint: Constipation History of Present Illness: This is a 37-year-old female that presents with constipation. She has not had a bowel movement for 3-1/2 weeks. She reports increasing nausea and vomiting over the past couple days. She was seen in this emergency department several days ago for the same complaint. She was admitted and tried GoLYTELY, enemas, and suppositories, but continues to not have a bowel movement. She has been drinking MiraLAX, 2-3 capfuls per day but still has not had a bowel movement. She does have a history of constipation and neurogenic bowel and bladder. She has spina bifida and gets frequent urinary infections. Physical Examination: Afebrile and vital signs unremarkable. Patient appears uncomfortable but is not toxic or in distress. She is tearful. Abdomen is diffusely tender, but more so in the lower abdomen with light touch. CVAs also tender bilaterally with light touch. Skin appears normal. Test Results: Laboratory studies unremarkable. Urinalysis shows signs of a UTI. She caths and always has abnormal findings. She had a most recent culture that showed mixed growth fred. I did send a culture, but have low suspicion for infection. test was negative. CT showed thick bladder with dilated collecting system, she has this chronically. Emergency Department Course and Treatment: Patient was treated with fluids, morphine, and Zofran while awaiting results. I initially discussed her case with Dr. Josue. He recommended that if she is not having a bowel movement she will likely need admission for medical therapy until she does have a bowel movement. He also advised rechecking a CAT scan. Workup was all fairly unremarkable. She did not have a large amount of constipation. I spoke with Dr. Chung who knew her from her previous admission. We reviewed her testing and it all seems to be chronic for her. She did not feel that the patient needed admitted. She spoke with Dr. Josue who recommended medical treatment at home. She also recommended this and she recommended continuing MiraLAX, adding GoLYTELY, mineral oil, and senna/docusate. Patient will be referred to outpatient follow-up Dr. Josue. Treatment Plan: As above Disposition: Discharged Impression: 1. Constipation This note was generated with EverTune dictation software. It may contain incorrect words, spelling, and punctuation that were not noted in review of the chart prior to signing ED Disposition - Plan for ED Patient: Chief Complaint: Constipation Referrals: Will Dietz MD [Primary Care Provider] - What to do if you have Problems For any increased pain, shortness of breath, bleeding, nausea or vomiting, chest pain, or any unexpected problems, contact your Primary Care Provider. Call [facility] ([phone]) or report to the closest Emergency Room. Call 911 if necessary. 04/14/18 0055 <Electronically signed by Nemesio Pro MD> Date Nemesio Pro MD Cosigner Signature (If Indicated): Date CC: Will Dietz MD CBC W/DIFF, AUTOMATED Collected: 04/13/2018 Status: F Source: NORMA 4:25 PM [facility] REPOSIT[facility] TYPE CODE TESTS RESULT OUT OF RANGE REFERENCE UNITS LAB L100.1000 4.4-11.0 K/mm3 Normal WBC 10.6 LAB L100.1200 4.2-5.4 M/mm3 Normal RBC 4.34 LAB L100.1300 12.0-15.0 g/dl Normal HGB 13.0 LAB L100.1400 37-47 % Normal HCT 40.2 LAB L100.1500 81-99 fL Normal MCV 92.6 LAB L100.1600 27.0-32.0 pg Normal MCH 30.0 LAB L100.1700 32-36 g/gl Normal MCHC 32.3 LAB L100.1810 11.6-14.6 % Normal RDW CV 13.7 LAB L100.1820 35.1-43.9 fl High RDW SD 46.6 LAB L100.1900 150-450 K/mm3 Normal PLT 173 LAB L100.2000 6.2-12.0 fl Normal MPV 10.8 LAB L100.2100 47-70 % Normal NEUT% 64.9 LAB L100.2200 19-41 % Low LY% 18.4 LAB L100.2300 0-10 % High MONO% 10.8 LAB L100.2400 0-5 % Normal EO% 4.7 LAB L100.2500 0-1 % Normal BASO% 0.5 LAB L100.2550 0.0-0.9 % Normal IM GRAN % 0.700 Result Comment: IG% - Immature Granulocytes (promyelocytes, myelocytes and metamyelocytes) > 1% indicates that a LEFT SHIFT is Present. LAB L100.2620 2.0-7.7 X10 3/uL Normal Absolute Neut 6.9 LAB L100.2720 0.83-4.51 X10 3/ul Normal Absolute Lymph 1.96 Performed By: #### L100.0100 #### [facility] [address] [place], [address] COMPREHENSIVE METABOLIC Collected: 04/13/2018 Status: F Source: NORMA [facility] 4:25 PM [facility] REPOS[facility] TYPE CODE TESTS RESULT OUT OF RANGE REFERENCE UNITS LAB L501.0100 74-106 mg/dL High GLU 171 Result Comment: Fasting Glucose result greater than or equal to 126 mg/dL suggests DIABETES MELLITUS per A.D.A. criteria. Please note revised GLUCOSE reference range effective 2017. LAB L501.1000 7-18 mg/dL Normal BUN 9 LAB L501.1100 0.55-1.02 mg/dL Normal CREAT,SERUM 0.87 Result Comment: The validity of the calculated GFR AND GFRAA in patients over 70 years has not been determined. Clinical correlation is essential. LAB L501.1110 >60 mL/min Normal EST GFR 78 Result Comment: Non- GFR Calc LAB L501.1115 >60 mL/min Normal EST GFR - AA 95 Result Comment: GFR Calc LAB L501.1255 ml/min Normal Estimated CRCL 70.70 LAB L501.1300 10-20 RATIO Normal BUN/CRE 10.3 LAB L501.1500 6.4-8. g/dL Normal 2 T PROT 8.0 LAB L501.1800 3.2-5. g/dL Normal 0 ALB 3.7 LAB L501.1950 2.2-4. g/dL High 2 GLOB 4.3 LAB L501.2000 0.9-2. RATIO Normal 4 A/G 0.9 LAB L501.2200 8.5-10 mg/dL Normal .1 CA 8.6 LAB L501.4100 15-37 U/L High AST 75 Result Comment: Moderate Hemolysis, Result may be falsely increased. LAB L501.4305 45-117 U/L Normal ALK P 66 LAB L501.4405 13-56 U/L Normal ALT 55 LAB L501.4600 0.20-1.00 mg/dL Normal T BILI 0.40 LAB L501.5300 136-145 mmol/L Normal NA 137 LAB L501.5600 3.5-5.1 mmol/L Normal K 4.9 Result Comment: Moderate Hemolysis, Result may be falsely increased. LAB L501.5900 98-107 mmol/L Normal CL 105 LAB L501.6100 21.0-32.0 mmol/L Normal CO2 27.0 LAB L501.6200 5-15 Normal 5 GAP Performed By: #### L500.4050, L501.2450 #### [facility] [address] [place], [address] LIPASE Collected: 04/13/2018 Status: F Source: PATRIOT 4:25 PM [facility] TYPE CODE TESTS RESULT OUT OF RANGE REFERENCE UNITS LAB L501.2450 73-393 U/L Normal LIPASE 78 Performed By: #### L500.4050, L501.2450 #### [facility] [address] [place], [address] ,SERUM,HCG QUALI. Collected: Status: F Source: PATRIOT 04/13/2018 4:25 PM [facility] TYPE CODE TESTS RESULT OUT OF REFERENCE UNITS RANGE LAB L700.7000 0-9 Nonpreg Negative Normal HCGSQUAL NEGATIVE LAB L700.6700 =>Qualitative mIU/mL Normal HCG Qual < 1 triggr Performed By: #### L700.6800 #### [facility] [address] [place], [address] URINALYSIS, COMPLETE Collected: 04/13/2018 Status: F Source: PATRIOT 4:10 PM [facility] REPOSIT[facility] Order Comment: How was Urine Obtained? CLEAN CATCH TYPE CODE TESTS RESULT OUT OF RANGE REFERENCE UNITS LAB L400.3000 Yellow COLOR Normal Yellow LAB L400.3050 Clear Normal CLARITY Cloudy LAB L400.3200 Normal mg/dl High GLUCOSE, UR 1000 LAB L400.3300 Negative mg/dL Normal BILIRUBIN URINE Negative LAB L400.3400 Negative mg/dl Normal KETONE UR Negative LAB L400.3465 1.002-1.030 Normal SP.GR. DIPSTX 1.010 LAB L400.3550 5.0 - 8.0 pH UR Normal 6.5 LAB L400.3600 Negative mg/dl High PROT 30 DIPSTX LAB L400.3700 Normal mg/dl High 1 UROBILI LAB L400.3750 Negative Normal NITRITE UR Negative LAB L400.3780 Negative /ul High OCCULT BLOOD-UR 150 LAB L400.3800 Negative /ul High LEUK ESTERASE 500 LAB L400.4050 0-5 /hpf WBC Normal >100 SEEN LAB L400.4100 0-5 /hpf Normal RBC-UA 0-5 SEEN LAB L400.4150 5-10 /hpf SQUAM Normal EPI 0-5 SEEN LAB L400.4300 None Seen /hpf Normal BACTERIA RARE LAB L400.4350 <or=2+ /hpf 0 Normal MUCUS, URINE SEEN Performed By: #### L400.0001 #### [facility] [address] [place], [address] Observed: 04/13/2018 Status: F Source: NORMA CULTURE, URINE 4:10 PM [facility] REPOSIT[facility] Urine Culture ORGANISM 1: Mixed Gram Positive Organisms [place] Count >100,000 MIX CULTURE Mixed contaminants. Submit a new specimen if indicated. Performed By: #### M100.0650 #### [facility] [address] [place], [address] ABDOMEN/PELVIS WITH Observed: 04/13/2018 Status: F Source: NORMA CONTRAST 3:43 PM [facility] REPOSITORY [facility] Imaging Services [address] [place] [address] Abdomen/Pelvis WITH Contrast MR#: [id number] Acct: [id number] Name: DEBBY BAILON Rep #: [id number] : 1980 F 37 From: Will Joe MD PCP: Will Dietz MD Status: REG ER Study: Abdomen/Pelvis WITH Contrast Date of Exam: 04/13/18 Exam# [id number] Ordering Dr: Nemesio Pro MD STUDY: CT ABDOMEN AND PELVIS WITH CONTRAST REASON FOR EXAM: Female, 37 years old. Dysuria RADIATION DOSAGE (If Supplied By Facility): CTDIvol = ( 20.06 ) mGy, DLP = ( 1246.55 ) mGycm TECHNIQUE: Transaxial images were obtained from the dome of the diaphragm to the symphysis pubis without oral contrast. 100ML ml of Isovue 300 contrast was administered. Sagittal and coronal images were reconstructed. Individualized dose optimization techniques were used for this CT. COMPARISON: None. FINDINGS: The visualized lung bases are unremarkable. The visualized portions of the heart are within normal limits. There is mild prominence of the liver which is fatty infiltrated without mass or bile duct dilatation. Gallbladder not visualized which may be consistent with prior cholecystectomy. Normal spleen. Normal pancreas. Normal bilateral adrenal glands. There is mild cortical scarring of both kidneys greater on the right likely due to old inflammatory disease.. There is moderate to severe right renal pelvocaliectasis and hydroureter with diffuse thickening of the ureteral hallman as well as contracted thick-walled bladder. Normal visualized stomach. Normal small intestine. Normal colon. The appendix is visualized and appears normal. Normal abdominal aorta. Normal inferior vena cava. Normal retroperitoneum. Uterus is deviated towards the right and there is minor cystic changes within the adnexa bilaterally. 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 There is also apparent posterior decompression of the sacral canal extending to S3-4. No significant change since prior study CT/Abdomen/Pelvis WITH Contrast IMPRESSION: Contracted thick-walled bladder which may be due to nonspecific cystitis with distention of both the right ureter and renal collecting system possibly due to chronic reflux however bladder wall lesion obstructing the ureter cannot be entirely excluded. Electronically Signed: Will Joe MD at 18:18 EST , Service support , CC: Nemesio Pro MD; Will Dietz MD Paper Rewinder Operator: Signed DISCHARGE SUMMARY Observed: 04/12/2018 Status: F Source: PATRIOT 11:04 AM [facility] REPOSITORY [facility] Medical Records Department [address] [place] [id number] Discharge Summary 04/12/18 1056 MR#: [id number] Acct: [id number] Name: DEBBY BAILON Rep #: [id number] : 1980 37 From: Reymundo Encarnacion DO PCP: Will Dietz MD Status: ADM OLEG Y Location: [place] [address] Discharge Date and Diagnosis - Problem List Patient Problems: Active and Suspected Problems (Last Reviewed 01/30/18 @ 14:24 by Laurne Rivas) Constipation (Acute) Date of Admission: 04/11/18 - Primary Discharge Diagnosis Active and Suspected Problems (Last Reviewed 01/30/18 @ 14:24 by Lauren Rivas) Constipation (Acute) Hydronephrosis (Acute) - Secondary Discharge Diagnosis Chronic Problems (Last Reviewed 01/30/18 @ 14:24 by Lauren Rivas) Neurogenic bowel (Chronic) Neurogenic bladder (Chronic) Chronic back pain (Chronic) History of migraine (Chronic) Depression (Chronic) Spina bifida aperta of lumbar spine (Chronic) s/p surgery x 2 weakness and numbness in legs neurogenic bladder and frequent UTIs Non-compliance (Chronic) Morbid obesity with BMI of 40.0-44.9, adult (Chronic) Diabetes mellitus, type II (Chronic) Hydronephrosis of right kidney (Chronic) Consult dictated, For now Treat UTI and make sure pt does self cath. Will follow, no need yet for cysto retros etc. But this may change in future 13 Sept Re-admitted consult dictated Hospital Course and Treatment Imaging Results: Clinical Impression(s) from Imaging Studies Abdomen X-Ray 04/11/18 15:45 IMPRESSION: Unremarkable bowel pattern. There is no evidence of constipation. The quantity of stool distributed throughout the large bowel is moderate. There is no evidence of bowel obstruction. Electronically Signed: Severino Aguilar, at 16:54 EST Tel , Service support , Abdomen/Pelvis CT 04/12/18 00:54 IMPRESSION: 1. No significant change. Moderate right hydronephrosis and moderate to marked right hydroureter without CT findings of obstructing lesion or stone. 2. Urinary bladder mild diffuse mural thickening, unchanged, with history of neurogenic bladder. 3. NG tube in place with the tip within the stomach lumen 4. Chronic findings include fatty infiltration of the liver, cholecystectomy, and ventral wall hernia repair Individualized dose optimization techniques were used for this CT. at 0237 Reported and signed by: Gavin Sanchez MD Electronically Signed: Gavin Sanchez, at 2:35 EST Tel , Service support , Ki Reza MD: urology Operations: None Procedures: None Summary of Care Provided: The patient is a 37 year old F resents with abdominal pain, constipation for 3 weeks and nausea and vomiting. Patient had a CAT scan that showed hydronephrosis on the right but unchanged from previous. Patient also has constipation but not as much as one would expect to see with reported 3 weeks of constipation. Patient was started on Nulytely, B AND O. Patient still complaining of abdominal pain, however patient was sleeping very soundly. I did review the patient's records here, and patient has been to the emergency room 3 times for a variety of issues. Concern for ulterior motive perhaps since then some of these visits but but overall concerning for some of it comes the hospital that frequently. It also appears the patient has been to other hospitals as well release other specialists as her O[facility] reports [facility] physicians providing some controlled substances at times. Patient advised to take MiraLAX daily, patient was only doing a as needed before. Additionally, recommend take Dulcolax as needed for constipation. If the constipation is not relieved with that then she may need additional agents but would want her to at least utilize this regimen for the time being before adding other medications on top of that. Patient was seen by urology given the hydronephrosis and recommended no acute intervention at this time. Patient instructed to follow-up with her regular cloth packer at [facility]. Patient states that she is not been able to make appointments and when she is able to make the appointments the specialist cancels them. Advised her to perhaps seek out other urologist and may be closer that may be amenable to her condition but she will need to make that initiative. [] Patient Problems: Active and Suspected Problems (Last Reviewed 01/30/18 @ 14:24 by Lauren Rivas) Constipation (Acute) - Physical Exam General: Alert, No apparent distress HEENT: Atraumatic, Normocephalic Oral: Moist Mucosa, No Gingival or Mucosal Lesions/ Ulcerations Neck: No Nodes, Thyroid Normal Size and Texture Lungs: Clear to auscultation, Normal air movement, No rhonchi, No wheeze Cardiovascular: Regular rate, Regular Rhythm, Normal S1, Normal S2 Abdomen: Bowel Sounds Present, Soft, Non Tender, Non-Distended, Obese Extremities: No edema, No Calf Tenderness Vital Signs Temp Pulse Resp BP Pulse Ox 36.9 C 80 18 135/83 H 96 04/12/18 05:00 04/12/18 06:00 04/12/18 05:00 04/12/18 05:00 04/12/18 05:00 Oxygen Delivery Method Room Air Weight: 106.594 kg Body Mass Index (BMI) 43.0 Finger Stick Blood Glucose 187 Intake and Output for Last 24 Hours Intake Total 380 / 380 2564 / 2564 Output Total 600 / 600 Balance 380 / 380 1963 / 1963 Laboratory Tests Past 24 Hrs WBC 9.8 RBC 4.31 Hgb 13.1 Hct 39.9 MCV 92.6 MCH 30.4 MCHC 32.8 RDW 13.5 RDW Differential 45.0 H WBC RBC Hgb Hct MCV MCH MCHC RDW RDW Differential Plt Count POC Glucose POC Glucose 208 H 158 H Discharge Diet: No Restrictions Call your doctor if you observe: Fever of 101 or Higher, - - increased abdominal pain. Home Medications: Medications to take at Discharge Duloxetine Hcl [Cymbalta] 60 mg PO DAILY 10/06/15 Metformin(XR) [Glucophage Xr] 1,000 mg PO BID 06/19/16 Propranolol HCl 10 mg PO DAILY 07/18/17 Atorvastatin Calcium [Lipitor] 10 mg PO QHS 11/07/17 Loratadine 10 mg PO DAILY 01/21/18 Pseudoephedrine HCl [Sudogest] 30 mg PO Q6H PRN PRN 01/21/18 Pregabalin [Lyrica] 75 mg PO DAILY 02/25/18 Glimepiride [Amaryl] 4 mg PO DAILY 03/03/18 Buspirone HCl 15 mg PO BID 04/11/18 Acetaminophen 1,000 mg PO TID PRN #1 tablet 04/12/18 Bisacodyl [Dulcolax] 10 mg PO DAILY PRN #1 tablet 04/12/18 Dicyclomine HCl [Bentyl] 10 mg PO TIDAC PRN #30 capsule 04/12/18 Ibuprofen 600 mg PO 4X/DAY PRN #1 tablet 04/12/18 Polyethylene Glycol 3350 [Miralax] 17 gm PO DAILY #1 packet 04/12/18 Following Prescrptions Were Given to Patient: Bisacodyl [Dulcolax] 10 mg PO DAILY PRN #1 tablet PRN Reason: Constipation Dicyclomine HCl [Bentyl] 10 mg PO TIDAC PRN #30 capsule PRN Reason: abdominal cramps Polyethylene Glycol 3350 [Miralax] 17 gm PO DAILY #1 packet Acetaminophen 1,000 mg PO TID PRN #1 tablet PRN Reason: Pain Ibuprofen 600 mg PO 4X/DAY PRN #1 tablet PRN Reason: Pain Primary Care Physician: Will Dietz MD [Primary Care Provider] - Within 2 Weeks Please Follow Up With: urology When: 2-3 weeks. Disposition: Home Minutes spent on discharge:: 32 Patient Condition:: Fair Medical Necessity - Tobacco Use Smoking Status: Never smoker Tobacco Use: Secondhand Meaningful Use Info Meaningful Use Diagnoses (Choose all that apply): None applicable Code Visit OBSV E AND M: 32601 Observation care discharge 04/12/18 1104 <Electronically signed by Reymundo Encarnacion DO> Date Reymundo Encarnacion DO Cosigner Signature (if applicable): Date CC: Reymundo Encarnacion DO; Will Dietz MD Signed DISCHARGE INSTRUCTION Observed: 04/12/2018 Status: F Source: NORMA 10:56 AM [facility] REPOSITORY [facility] Medical Records Department [address] [place] [address] Instructions for Home/Discharge Instructions 04/12/18 1054 MR#: [id number] Acct: [id number] Name: DEBBY BAILON Rep #: [id number] : 1980 37 From: Reymundo Encarnacion DO PCP: Will Dietz MD Status: ADM OLEG - Discharge Diagnoses Current Active Problems: Current Active and Chronic Problems (Last Reviewed 01/30/18 @ 14:24 by Lauren Rivas) Hydronephrosis (Acute) You will use the following diet at home:: No restrictions Your food should be the consistency of: Regular Call your doctor if you observe: Fever of 101 or Higher, - - increased abdominal pain. Allergies/Adverse Reactions: Allergies mushroom Allergy (Verified 04/11/18 13:31) Anaphylaxis peanut Allergy (Verified 04/11/18 13:31) Anaphylaxis Gadolinium-MRI Contrast Medium Adverse Reaction (Verified 04/11/18 13:31) Vomiting Medications to take at Discharge Duloxetine Hcl [Cymbalta] 60 mg PO DAILY 10/06/15 Metformin(XR) [Glucophage Xr] 1,000 mg PO BID 06/19/16 Propranolol HCl 10 mg PO DAILY 07/18/17 Atorvastatin Calcium [Lipitor] 10 mg PO QHS 11/07/17 Loratadine 10 mg PO DAILY 01/21/18 Pseudoephedrine HCl [Sudogest] 30 mg PO Q6H PRN PRN 01/21/18 Pregabalin [Lyrica] 75 mg PO DAILY 02/25/18 Glimepiride [Amaryl] 4 mg PO DAILY 03/03/18 Buspirone HCl 15 mg PO BID 04/11/18 Acetaminophen 1,000 mg PO TID PRN #1 tablet 04/12/18 Bisacodyl [Dulcolax] 10 mg PO DAILY PRN #1 tablet 04/12/18 Dicyclomine HCl [Bentyl] 10 mg PO TIDAC PRN #30 capsule 04/12/18 Ibuprofen 600 mg PO 4X/DAY PRN #1 tablet 04/12/18 Polyethylene Glycol 3350 [Miralax] 17 gm PO DAILY #1 packet 04/12/18 The following prescriptions were given: Bisacodyl [Dulcolax] 10 mg PO DAILY PRN #1 tablet PRN Reason: Constipation Dicyclomine HCl [Bentyl] 10 mg PO TIDAC PRN #30 capsule PRN Reason: abdominal cramps Polyethylene Glycol 3350 [Miralax] 17 gm PO DAILY #1 packet Acetaminophen 1,000 mg PO TID PRN #1 tablet PRN Reason: Pain Ibuprofen 600 mg PO 4X/DAY PRN #1 tablet PRN Reason: Pain Primary Care Physician: Will Dietz MD [Primary Care Provider] - Within 2 Weeks Test Results: Test results from this visit will be discussed in further detail at your follow-up appointment, if applicable. Please Follow Up With: urology When: 2-3 weeks. Proposed Discharge Date: 04/12/18 04/12/18 1056 <Electronically signed by Reymundo Encarnacion DO> Date Reymundo Encarnacion DO CC: Will Dietz MD; Herbert Reza MD BEDSIDE GLUCOSE Collected: 04/12/2018 Status: F Source: PATRIOT 8:18 AM [facility] REPOSITORY TYPE CODE TESTS RESULT OUT OF REFERENCE UNITS RANGE LAB L501.080 70-110 mg/dL High BEDSIDE GLU 208 Result Comment: MANAGEMENT OF PATIENT CARE PER NURSING PROTOCOL Performed By: #### L501.080 #### [facility] Point of Care [address] [place] [address] CONSULTATION Observed: 04/12/2018 Status: F Source: PATRIOT 7:44 AM [facility] REPOSITORY [facility] Medical Records Department [address] [place] [address] Consultation 04/12/18 0741 MR#: [id number] Acct: [id number] Name: DEBBY BAILON Colette Rep #: [id number] : 1980 37 From: Herbert Reza MD PCP: Will Dietz MD Status: ADM OLEG Y Location: [place] [id number] Problem List (1) Hydronephrosis Status: Acute Qualifiers: Hydronephrosis type: unspecified Qualified Code(s): N13.30 - Unspecified hydronephrosis Reason for Consult Date of Consultation: 04/12/18 Reason for Consultation: Hydronephrosis incidental finding History of Present Illness: The patient is a 37 year old female with myelomeningocele who was admitted to the hospital because of severe constipation she had a CAT scan done that demonstrated right hydronephrosis this is actually not new she has had this now for several years she is followed by urologist at the [facility]. Most likely this hydronephrosis is due to her neurogenic bladder and reflux. Reviewing her CAT scans from 2015 2014 she had right hydronephrosis back then, probably chronic in nature. She did have a renal scan as well. She denies any flank pain. She manages her bladder with self intermittent catheterization. She has a neurogenic bladder. Past Medical History Past Medical History (Chronic Problems): Chronic Problems (Last Reviewed 01/30/18 @ 14:24 by Lauren Rivas) Neurogenic bowel (Chronic) Neurogenic bladder (Chronic) Chronic back pain (Chronic) History of migraine (Chronic) Depression (Chronic) Spina bifida aperta of lumbar spine (Chronic) s/p surgery x 2 weakness and numbness in legs neurogenic bladder and frequent UTIs Non-compliance (Chronic) Morbid obesity with BMI of 40.0-44.9, adult (Chronic) Diabetes mellitus, type II (Chronic) Hydronephrosis of right kidney (Chronic) Consult dictated, For now Treat UTI and make sure pt does self cath. Will follow, no need yet for cysto retros etc. But this may change in future 13 Sept Re-admitted consult dictated Medical History: Medical History (Last Reviewed 01/30/18 @ 14:24 by Lauren Rivas) Neurogenic bowel (Chronic) K59.2 Neurogenic bladder (Chronic) N31.9 Chronic back pain (Chronic) M54.9, G89.29 History of migraine (Chronic) Z86.69 Depression (Chronic) F32.9 Spina bifida aperta of lumbar spine (Chronic) Q05.7 s/p surgery x 2 weakness and numbness in legs neurogenic bladder and frequent UTIs Non-compliance (Chronic) Z91.19 Morbid obesity with BMI of 40.0-44.9, adult (Chronic) E66.01, Z68.41 Diabetes mellitus, type II (Chronic) E11.9 Nausea and vomiting (Acute) R11.2 Hydronephrosis of right kidney (Chronic) N13.30 Consult dictated, For now Treat UTI and make sure pt does self cath. Will follow, no need yet for cysto retros etc. But this may change in future 13 Sept Re-admitted consult dictated UTI (urinary tract infection) (Resolved) N39.0 Allergies mushroom Allergy (Verified 04/11/18 13:31) Anaphylaxis peanut Allergy (Verified 04/11/18 13:31) Anaphylaxis Gadolinium-MRI Contrast Medium Adverse Reaction (Verified 04/11/18 13:31) Vomiting Home Medications: Ambulatory Orders Medication Instructions Recorded Duloxetine Hcl [Cymbalta] 60 mg PO DAILY 16 Surgical History: Surgical History (Last Reviewed 01/30/18 @ 14:24 by Lauren Rivas) History of cholecystectomy Z90.49 History of dilation and curettage Z98.890 History of spinal surgery Z98.890 Hx of foot surgery Z98.890 Hx of ventral hernia repair Z98.890, Z87.19 Status post gastric surgery Z98.890 Surgical History: cholecystectomy, - - D AND C, lumbar back surgery x2, foot surgery x2, abdominal stoma, ventral hernia repair. 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 history Lives: Spouse/ Significant Other Smoking Status: Never smoker Tobacco Use: Secondhand Alcohol: None Drugs: None - *Family History Maternal Family History: Family History (Last Reviewed 04/11/18 @ 17:10 by NACHO Maravilla) Mother CVA (cerebral vascular accident) Thyroid disorder Diabetes Hypertension History Items: Cancer, Diabetes, Hypertension, Stroke Paternal Family History: Family History (Last Reviewed 04/11/18 @ 17:10 by NACHO Maravilla) Mother CVA (cerebral vascular accident) Thyroid disorder Diabetes Hypertension History Items: No pertinent history Sibling Family History: Family History (Last Reviewed 04/11/18 @ 17:10 by NACHO Maravilla) Mother CVA (cerebral vascular accident) Thyroid disorder Diabetes Hypertension History Items: No pertinent history Physical Exam - Physical Exam Vital Signs Temp 98.5 F 04/12/18 05:00 Pulse 80 04/12/18 06:00 Resp 18 04/12/18 05:00 BP 135/83 H 04/12/18 05:00 Pulse Ox 96 04/12/18 05:00 Intake AND Output Intake Total 380 / 380 2564 / 2564 Output Total 600 / 600 Balance 380 / 380 1963 / 1963 General: Alert, Oriented x3 HEENT: Atraumatic Oral: Moist Mucosa Neck: Supple Abdomen: Soft, Obese Laboratory Tests Past 24 Hrs WBC 9.8 RBC 4.31 Hgb 13.1 Hct 39.9 MCV 92.6 MCH 30.4 MCHC 32.8 RDW 13.5 RDW Differential 45.0 H WBC RBC Hgb Hct MCV MCH MCHC RDW RDW Differential Plt Count Assessment/Plan All Active Problems (Last Reviewed 01/30/18 @ 14:24 by Lauren Rivas) Hydronephrosis (Acute) Nausea and vomiting (Acute) UTI (urinary tract infection) (Resolved) 37-year-old female admitted for constipation was found to have right hydronephrosis at the time of admission on CAT scan this is a chronic finding she is to follow-up with a urologist at the [facility] regarding this finding and regarding her bladder management she may need further bladder management changes probably reflux from neurogenic bladder she appears to be catheterizing adequately. Call me with questions. 04/12/18 0744 <Electronically signed by Herbert Reza MD> Date Herbert Reza MD Cosigner Signature (if applicable): Date CC: Will Dietz MD; Herbert Reza MD Signed CBC W/DIFF, AUTOMATED Collected: 04/12/2018 Status: F Source: ONRMA 5:46 AM [facility] REPOSITORY TYPE CODE TESTS RESULT OUT OF RANGE REFERENCE UNITS LAB L100.1000 4.4-11.0 K/mm3 High WBC 15.4 LAB L100.1200 4.2-5.4 M/mm3 Low RBC 3.89 LAB L100.1300 12.0-15.0 g/dl Low HGB 11.8 LAB L100.1400 37-47 % Low HCT 36.0 LAB L100.1500 81-99 fL Normal MCV 92.5 LAB L100.1600 27.0-32.0 pg Normal MCH 30.3 LAB L100.1700 32-36 g/gl Normal MCHC 32.8 LAB L100.1810 11.6-14.6 % Normal RDW CV 13.3 LAB L100.1820 35.1-43.9 fl High RDW SD 44.3 LAB L100.1900 150-450 K/mm3 Normal PLT 159 LAB L100.2000 6.2-12.0 fl Normal MPV 11.4 LAB L100.2100 47-70 % High NEUT% 83.4 LAB L100.2200 19-41 % Low LY% 6.5 LAB L100.2300 0-10 % Normal MONO% 7.2 LAB L100.2400 0-5 % Normal EO% 2.0 LAB L100.2500 0-1 % Normal BASO% 0.3 LAB L100.2550 0.0-0.9 % Normal IM GRAN % 0.600 Result Comment: IG% - Immature Granulocytes (promyelocytes, myelocytes and metamyelocytes) > 1% indicates that a LEFT SHIFT is Present. LAB L100.2620 2.0-7.7 X10 3/uL High Absolute Neut 12.8 LAB L100.2720 0.83-4.51 X10 3/ul Normal Absolute Lymph 1.00 Performed By: #### L100.0100 #### [facility] [address] [place], [address] BASIC METABOLIC Collected: 04/12/2018 Status: F Source: PATRIOT PROFILE ([facility]) 5:46 AM [facility] REPOSITORY TYPE CODE TESTS RESULT OUT OF RANGE REFERENCE UNITS LAB L501.0100 74-106 mg/dL High GLU 227 Result Comment: Glucose result greater than or equal to 200 mg/dL suggests DIABETES MELLITUS per A.D.A. criteria. Please note revised GLUCOSE reference range effective 2017. LAB L501.1000 7-18 mg/dL Normal BUN 11 LAB L501.1100 0.55-1.02 mg/dL Normal CREAT,SERUM 1.02 Result Comment: The validity of the calculated GFR AND GFRAA in patients over 70 years has not been determined. Clinical correlation is essential. LAB L501.1110 >60 mL/min Normal EST GFR 65 Result Comment: Non- GFR Calc LAB L501.1115 >60 mL/min Normal EST GFR - AA 79 Result Comment: GFR Calc LAB L501.1255 ml/min Normal Estimated CRCL 60.31 LAB L501.1300 10-20 RATIO Normal BUN/CRE 10.8 LAB L501.2200 8.5-10 mg/dL Low .1 CA 8.3 LAB L501.5300 136-14 mmol/L Normal 5 NA 138 LAB L501.5600 3.5-5. mmol/L Normal 1 K 4.4 LAB L501.5900 98-107 mmol/L Normal CL 106 LAB L501.6100 21.0-3 mmol/L Normal 2.0 CO2 21.0 LAB L501.6200 5-15 Normal GAP 11 Performed By: #### L500.2500 #### [facility] [address] [place], [address] ABDOMEN/PELVIS WITHOUT Observed: 04/12/2018 Status: F Source: PATRIOT CONT 12:56 AM [facility] REPOSITORY [facility] Imaging Services [address] [place] [address] Abdomen/Pelvis without Cont MR#: [id number] Acct: [id number] Name: DEBBY BAILON Rep #: [id number] : 1980 F 37 From: Gavin Sanchez MD PCP: Will Dietz MD Status: ADM OLEG Study: Abdomen/Pelvis without Cont Date of Exam: 04/12/18 Exam# [id number] Ordering Dr: Gen Butt MD HISTORY: SEVERE ABD PAIN WITH CONSTIPATION, HX NEUROGENIC BLADDER, HERNIA REPAIR IN NOVEMBER, SPINA BIFIDA, DIAB TECHNIQUE: Multiple axial images were obtained of the abdomen and pelvis without oral or IV contrast. A radiation dose optimization technique was used for this scan. IV Contrast dosage and agent: None. Oral contrast: None. COMPARISON: 03/19/2018 FINDINGS: With comparison to previous, no significant change. LOWER CHEST: Lung bases: Clear. NG tube in place with the tube tip within the stomach. Nonvisualization of the gallbladder. Diffuse fatty infiltration of the liver without focal lesion or biliary dilatation. The spleen and pancreas show no CT abnormality. Kidneys: Normal in position. Chronic moderate hydronephrosis and moderate to marked right hydroureter with ureteral dilatation extending to the right UVJ. No obstructing lesion or stone seen. Right renal cortical thinning in keeping with an element of postobstructive atrophy. No renal or ureteral calculi. No hydronephrosis or hydroureter on the left. Adrenal glands are not enlarged. Abdominal aorta and IVC are unremarkable. No ascites or retroperitoneal lymphadenopathy. GI tract: No obstruction. Considerable fecal residue within the colon compatible with constipation. Pelvis: Mild diffuse thickening of the urinary bladder wall. History of neurogenic bladder. Tiny bladder wall diverticulum on the left. The pelvis shows no free fluid or lymphadenopathy. Anteverted uterus which tilts to the right. Multiple metallic tacks related to ventral wall hernia repair. CT/Abdomen/Pelvis without Cont IMPRESSION: 1. No significant change. Moderate right hydronephrosis and moderate to marked right hydroureter without CT findings of obstructing lesion or stone. 2. Urinary bladder mild diffuse mural thickening, unchanged, with history of neurogenic bladder. 3. NG tube in place with the tip within the stomach lumen 4. Chronic findings include fatty infiltration of the liver, cholecystectomy, and ventral wall hernia repair Individualized dose optimization techniques were used for this CT. at 0237 Reported and signed by: Gavin Sanchez MD Electronically Signed: Gavin Sanchez, at 2:35 EST Tel , Service support , CC: Will Dietz MD; Gen Butt MD Paper Rewinder Operator: Signed BEDSIDE GLUCOSE Collected: 04/11/2018 Status: F Source: PATRIOT 10:17 PM [facility] REPOSITORY TYPE CODE TESTS RESULT OUT OF REFERENCE UNITS RANGE LAB L501.080 70-110 mg/dL High BEDSIDE GLU 158 Result Comment: MANAGEMENT OF PATIENT CARE PER NURSING PROTOCOL Performed By: #### L501.080 #### [facility] Point [place] [address] [place] [address] HISTORY AND PHYSICAL Observed: 04/11/2018 Status: F Source: PAT[place]OT EXAM 8:24 PM [facility] REPOSITORY [facility] Medical Records Department [address] [place] [address] History and Physical 04/11/18 1706 MR#: [id number] Acct: [id number] Name: DEBBY BAILON Rep #: [id number] : 1980 37 From: Megan Clark BRIM SHAPER-C PCP: Will Dietz MD Status: ADM OLEG Y Location: [place] [id number] <Megan Clark - Last Filed: 04/11/18 17:54> Problem List (1) Neurogenic bowel Status: Chronic (2) Neurogenic bladder Status: Chronic (3) Chronic back pain Status: Chronic (4) History of migraine Status: Chronic (5) Depression Status: Chronic (6) Spina bifida aperta of lumbar spine Status: Chronic Comment: s/p surgery x 2 weakness and numbness in legs neurogenic bladder and frequent UTIs (7) Non-compliance Status: Chronic (8) Morbid obesity with BMI of 40.0-44.9, adult Status: Chronic (9) Diabetes mellitus, type II Status: Chronic (10) UTI (urinary tract infection) Status: Resolved (11) Nausea and vomiting Status: Acute (12) Hydronephrosis of right kidney Status: Chronic Comment: Consult dictated, For now Treat UTI and make sure pt does self cath. Will follow, no need yet for cysto retros etc. But this may change in future 13 Sept Re-admitted consult dictated History of Present Illness Date of Admission: 04/11/18 Chief Complaint: Abdominal pain, constipation, nausea, vomiting. The patient is a 37 year old F who presents to the emergency room due to abdominal pain, constipation, nausea and vomiting. Patient states her abdominal pain began Monday. She was seen in the ER 04/09/2018 with the same symptoms. CT of the abdomen and pelvis was completed at that time which showed a stable right hydronephrosis and right hydroureter, diffuse bladder wall thickening and fatty infiltration of the liver. She has a past medical history of migraines, spina bifida with chronic bilateral lower extremity weakness and neurogenic bladder/neurogenic bowel with frequent UTIs, chronic back pain, anxiety, depression, type 2 diabetes mellitus, morbid obesity. Patient self caths for urine and irrigates through her umbilicus for bowel irrigation due to neurogenic bowel. Patient reports she has not had a bowel movement in 3 weeks. She states bowel irrigation has not been working properly since her hernia repair surgery in November. She reports frequent emesis which is dark in color. Denies hematemesis. Denies fever, chills. She reports abdominal pain is intermittent and worse prior to episodes of emesis. Pain mostly in the lower abdomen. She denies urinary symptoms. Past Medical History Past Medical History (Chronic Problems): Chronic Problems (Last Reviewed 01/30/18 @ 14:24 by Lauren Rivas) Neurogenic bowel (Chronic) Neurogenic bladder (Chronic) Chronic back pain (Chronic) History of migraine (Chronic) Depression (Chronic) Spina bifida aperta of lumbar spine (Chronic) s/p surgery x 2 weakness and numbness in legs neurogenic bladder and frequent UTIs Non-compliance (Chronic) Morbid obesity with BMI of 40.0-44.9, adult (Chronic) Diabetes mellitus, type II (Chronic) Hydronephrosis of right kidney (Chronic) Consult dictated, For now Treat UTI and make sure pt does self cath. Will follow, no need yet for cysto retros etc. But this may change in future Jan Re-admitted consult dictated Medical History: Medical History (Last Reviewed 01/30/18 @ 14:24 by Lauren Rivas) Neurogenic bowel (Chronic) K59.2 Neurogenic bladder (Chronic) N31.9 Chronic back pain (Chronic) M54.9, G89.29 History of migraine (Chronic) Z86.69 Depression (Chronic) F32.9 Spina bifida aperta of lumbar spine (Chronic) Q05.7 s/p surgery x 2 weakness and numbness in legs neurogenic bladder and frequent UTIs Non-compliance (Chronic) Z91.19 Morbid obesity with BMI of 40.0-44.9, adult (Chronic) E66.01, Z68.41 Diabetes mellitus, type II (Chronic) E11.9 Nausea and vomiting (Acute) R11.2 Hydronephrosis of right kidney (Chronic) N13.30 Consult dictated, For now Treat UTI and make sure pt does self cath. Will follow, no need yet for cysto retros etc. But this may change in future Jan Re-admitted consult dictated UTI (urinary tract infection) (Resolved) N39.0 Allergies mushroom Allergy (Verified 04/11/18 13:31) Anaphylaxis peanut Allergy (Verified 04/11/18 13:31) Anaphylaxis Gadolinium-MRI Contrast Medium Adverse Reaction (Verified 04/11/18 13:31) Vomiting Home Medications: Ambulatory Orders Medication Instructions Recorded Duloxetine Hcl [Cymbalta] 60 mg PO DAILY 10/06/15 Surgical History: Surgical History (Last Reviewed 01/30/18 @ 14:24 by Lauren Rivas) History of cholecystectomy Z90.49 History of dilation and curettage Z98.890 History of spinal surgery Z98.890 Hx of foot surgery Z98.890 Hx of ventral hernia repair Z98.890, Z87.19 Status post gastric surgery Z98.890 Surgical History: cholecystectomy, - - D AND C, lumbar back surgery x2, foot surgery x2, abdominal stoma, ventral hernia repair. 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 history Lives: Spouse/ Significant Other Smoking Status: Never smoker Alcohol: None Drugs: None - *Family History Maternal Family History: Family History (Last Reviewed 04/11/18 @ 17:10 by NACHO Maravilla) Mother CVA (cerebral vascular accident) Thyroid disorder Diabetes Hypertension History Items: Cancer, Diabetes, Hypertension, Stroke Paternal Family History: Family History (Last Reviewed 04/11/18 @ 17:10 by NACHO Maravilla) Mother CVA (cerebral vascular accident) Thyroid disorder Diabetes Hypertension History Items: No pertinent history Sibling Family History: Family History (Last Reviewed 04/11/18 @ 17:10 by NACHO Maravilla) Mother CVA (cerebral vascular accident) Thyroid disorder Diabetes Hypertension History Items: No pertinent history Review of Systems Constitutional: Reports: Malaise, Weakness. Denies: Chills, Fever, Weight Change HEENT: Denies: Head Aches, Sinus Congestion, Sinus Drainage Cardiovascular: Reports: Light Headedness. Denies: Chest Pain, Edema, Palpitations, Syncope Respiratory: Denies: Cough, Shortness of breath at rest, Sputum production Gastrointestinal: Reports: Abdominal Pain, Constipation, Nausea, Vomiting. Denies: Diarrhea, Hematemesis, Hematochezia Genitourinary: Reports: Incontinence - With episodes of vomiting.. Denies: Dysuria, Frequency, Urgency Musculoskeletal: Denies: Joint Pain, Joint Tenderness Skin: Denies: Rash, Wounds Neurological: Denies: Numbness, Tingling, Focal weakness Psychiatric: Reports: Anxiety, Depression Hematologic/ Lymphatic: Denies: Easy Bruising, Easy Bleeding VTE Information - Inpt Only VTE Present on Admission: No VTE Mechan Device Prophylaxis: None VTE Pharm Prophylaxis ordered?: Yes - Physical Exam General: Alert, Oriented x3, Cooperative HEENT: Atraumatic, PERRLA, EOMI, Normocephalic Oral: Dry Mucosa Neck: Supple, No JVD, Negative Carotid Bruits Lungs: Clear to auscultation, Normal air movement Cardiovascular: Regular rate, Regular Rhythm, Normal S1, Normal S2, No murmurs Abdomen: Soft, Non-Distended, Hypoactive Bowel Sounds, Obese, Tender - Generalized TTP, - - Umbilical stoma Extremities: No clubbing, No cyanosis, No edema, Capillary Refill Less than 3 Seconds Skin: No rashes, No breakdown Musculoskeletal: No Tenderness to Palpation of Joints or Extremities Neurological: Cranial nerves II-XII grossly intact, Neuro grossly intact Psych/Mental Status: Normal Affect, Appropriate Vital Signs Temp Pulse Resp BP Pulse Ox 98.1 F 79 14 127/71 H 97 04/11/18 13:32 04/11/18 16:25 04/11/18 16:25 04/11/18 16:25 04/11/18 16:25 Oxygen Delivery Method Room Air Weight: 236 lb 12.423 oz Body Mass Index (BMI) 43.2 Finger Stick Blood Glucose 187 Laboratory Tests Past 24 Hrs WBC 9.8 RBC 4.31 Hgb 13.1 Hct 39.9 MCV 92.6 MCH 30.4 MCHC 32.8 RDW 13.5 WBC RBC Hgb Hct MCV MCH MCHC RDW RDW Differential Plt Count MPV Immature Gran % (Auto) Neut % (Auto) Lymph % (Auto) Assessment/Plan All Active Problems (Last Reviewed 01/30/18 @ 14:24 by Lauren Rivas) Nausea and vomiting (Acute) UTI (urinary tract infection) (Resolved) 1. Acute on chronic constipation due to neurogenic bowel from history of spina bifida-Patient irrigates her bowels through stoma in her umbilicus. States she has not had a bowel movement in 3 weeks. Abdominal x-ray on admission shows unremarkable bowel pattern. No evidence of constipation. Quantity of stool distributed throughout the large bowel is moderate. No evidence of bowel obstruction. Zofran as needed for nausea. GoLYTELY for constipation. NPO besides medications. Recommend outpatient follow up with surgeon who completed stoma. IV fluids. PRN pain regimen. 2. History of spina bifida with neurogenic bladder, neurogenic bowel, chronic back pain with lumbar spine surgery x2-self caths at home with history of frequent UTIs. Urinalysis on admission unremarkable. 3. Anxiety/depression-continue home buspirone, duloxetine regimen. 4. History of migraines-continue home regimen. 5. Type 2 diabetes mellitus-hold home metformin regimen. Accu-Cheks before meals at bedtime with sliding scale insulin. 6. Hyperlipidemia-continue statin. 7. Morbid obesity-encourage diet and lifestyle modifications. DVT prophylaxis-SCDs. This patient was seen by NACHO Maravilla under the supervision of Dr. Chung. <Sita Chung - Last Filed: 04/11/18 20:23> History of Present Illness The patient is a 37 year old F [] Past Medical History Medical History: Medical History (Last Reviewed 01/30/18 @ 14:24 by Lauren Rivas) Neurogenic bowel (Chronic) K59.2 Neurogenic bladder (Chronic) N31.9 Chronic back pain (Chronic) M54.9, G89.29 History of migraine (Chronic) Z86.69 Depression (Chronic) F32.9 Spina bifida aperta of lumbar spine (Chronic) Q05.7 s/p surgery x 2 weakness and numbness in legs neurogenic bladder and frequent UTIs Non-compliance (Chronic) Z91.19 Morbid obesity with BMI of 40.0-44.9, adult (Chronic) E66.01, Z68.41 Diabetes mellitus, type II (Chronic) E11.9 Nausea and vomiting (Acute) R11.2 Hydronephrosis of right kidney (Chronic) N13.30 Consult dictated, For now Treat UTI and make sure pt does self cath. Will follow, no need yet for cysto retros etc. But this may change in future 13 Jan Re-admitted consult dictated UTI (urinary tract infection) (Resolved) N39.0 Allergies mushroom Allergy (Verified 04/11/18 13:31) Anaphylaxis peanut Allergy (Verified 04/11/18 13:31) Anaphylaxis Gadolinium-MRI Contrast Medium Adverse Reaction (Verified 04/11/18 13:31) Vomiting Surgical History: Surgical History (Last Reviewed 01/30/18 @ 14:24 by Lauren Rivas) History of cholecystectomy Z90.49 History of dilation and curettage Z98.890 History of spinal surgery Z98.890 Hx of foot surgery Z98.890 Hx of ventral hernia repair Z98.890, Z87.19 Status post gastric surgery Z98.890 - *Family History Maternal Family History: Family History (Last Reviewed 04/11/18 @ 17:10 by PATRICK MaravillaC) Mother CVA (cerebral vascular accident) Thyroid disorder Diabetes Hypertension Paternal Family History: Family History (Last Reviewed 04/11/18 @ 17:10 by NACHO Maravilla) Mother CVA (cerebral vascular accident) Thyroid disorder Diabetes Hypertension Sibling Family History: Family History (Last Reviewed 04/11/18 @ 17:10 by NACHO Maravilla) Mother CVA (cerebral vascular accident) Thyroid disorder Diabetes Hypertension - Physical Exam Vital Signs Temp Pulse Resp BP Pulse Ox 98.1 F 79 16 108/57 L 97 04/11/18 17:58 04/11/18 19:10 04/11/18 17:58 04/11/18 17:58 04/11/18 17:58 Oxygen Delivery Method Room Air Weight: 106.594 kg Body Mass Index (BMI) 43.0 Finger Stick Blood Glucose 187 Intake and Output for Last 24 Hours Intake Total 380 / 380 Balance 380 / 380 Laboratory Tests Past 24 Hrs WBC 9.8 RBC 4.31 Hgb 13.1 Hct 39.9 MCV 92.6 MCH 30.4 MCHC 32.8 RDW 13.5 WBC RBC Hgb Hct MCV MCH MCHC RDW RDW Differential Plt Count MPV Immature Gran % (Auto) Neut % (Auto) Lymph % (Auto) Assessment/Plan This patient was seen in conjunction with Megan Clark NP. I have independently interviewed and examined the patient and reviewed pertinent historical, laboratory, and other data. Please refer to her note for patient's presentation, findings, and recommendations. 37-year-old with past medical history of type II DM, history of spina bifida, with neurogenic bladder and bowels, history of intermittent chronic constipation, history of umbilical stoma for bladder irrigation for as needed bowel irrigation comes in with a 5-day history of abdominal discomfort, nausea and vomiting and a 3-week history of no bowel movement. Patient was seen earlier in the ED and had a CT scan of the abdomen and pelvis done that showed no intestinal obstruction. She was discharged home with stool softeners. Abdominal x-ray on admission showed moderate stool but no evidence of bowel obstruction. She complains of chills but denied any fever. Her emesis with brownish in color. PMHX: In addition to the above, anxiety/depression, morbid obesity, right kidney hydronephrosis PSHX: Status post cholecystectomy, status post spinal surgery, status post to surgery, status post ventral hernia repair, status post gastric surgery Fhx: History of CVA, DM in mother, father has no pertinent family history SHx: Denies any smoking, use of alcohol or illicit drugs ROS: No point review of systems was essentially negative except for above in HPI Physical Exam: Vitals were reviewed -stable Gen: Morbidly obese, appears comfortable not pale, not jaundiced, alert oriented x3 CVS:HS I +II, regular, no murmurs RESP: Abbe clear to auscultation GI: Heart sounds were present and normal, umbilical stoma with clear yellow serous discharge, full, mild generalized tenderness, no palpable organs EXT:No edema Labs reviewed -unremarkable ASSESSMENT: 1. Acute on chronic constipation 2. Type II DM 3. Anxiety/depression 4. Morbid obesity 5. Hyperlipidemia 6. Right kidney hydronephrosis 8. Neurogenic bladder/bowel status post intermittent self- catheterization and flushes Plan: Admit to MedSurg, stool softeners, soapsud enema, GoLYTELY IV fluids, normal saline with 20 mEq of potassium in anticipation for diarrhea Check TSH Repeat blood work - CBCD, CMP in a.m. Continue home medications except for metformin Accu-Cheks with insulin sliding scale Possible discharge in a.m. if patient has moved her bowels Consider general surgical consult if patient still has not moved her bowels Code Visit OBSV E AND M: [id number] Initial observation care L3 04/11/18 6347 <Electronically signed by Megan Clark BRIM SHAPERGretaC> Date Megan NGUYENC 04/11/182023<Electronically signed by Sita Chung MD> Cosigner Signature: Date (if applicable) Sita Chung MD CC: NACHO Clark; Sita Chung MD; Will Dietz MD Signed EMERGENCY DEPARTMENT Observed: 04/11/2018 Status: F Source: PATRIOT SUMMARY 5:53 PM [facility] REPOSITORY [facility] Medical Records Department [address] [place] [address] Emergency Department Summary 04/11/18 1536 MR#: [id number] Acct: [id number] Name: DEBBY BAILON Rep #: [id number] : 1980 37 From: Makenzie Wood MD PCP: Will Dietz MD Status: ADM OLEG - ER Visit Summary Date of Service: 04/11/18 Chief Complaint: Abdominal pain History of Present Illness: The patient is a 37 F who presents for 2 days of abdominal pain. Patient has history of spina bifida with neurogenic bladder and neurogenic bowel. She has a stoma in her umbilicus so she can irrigate her bowels. Patient states stoma hasnot been working well since her hernia surgery in November. Patient was seen 2 days ago for the same complaints. She had a workup that was unremarkable and was sent home with her pain and nausea improved at time of discharge. Yesterday she began having return of diffuse abdominal pain that is constantly aching with sharp stabbing intermittent pains followed by vomiting. With vomiting she has urinary incontinence. She also describes the vomitus as dark brown and concerning for intestinal contents. She denies diarrhea, no bowel movement for 3 weeks, and no flatus. She has tried enemas without result. Patient denies fever or other complaints at this time. Physical Examination: Vital signs: afebrile, hemodynamically stable, no hypoxia on room air General: well nourished, well developed, in no distress Skin: warm, dry, no rash, no pallor HEENT: normocephalic and atraumatic; PERRL, EOMI, moist mucous membranes Cardiovascular: regular rate and rhythm without murmurs, no peripheral edema, 2+ pulses all distal extremities Respiratory: No increased work of breathing, lungs are clear to auscultation bilaterally, no rales, rhonchi or wheezing Abdominal: Abdomen is soft, diffusely tender with hypoactive bowel sounds, no guarding or rebound, no masses MSK: Moves all extremities, no deformities, normal strength Neuro: Awake and alert, oriented 4. No facial droop, sensation and motor function intact and symmetric Test Results: Abnormal Lab Results WBC 9.8 RBC 4.31 Hgb 13.1 Hct 39.9 MCV 92.6 MCH 30.4 MCHC 32.8 RDW 13.5 WBC RBC Hgb Hct MCV MCH MCHC RDW RDW Differential Plt Count MPV Immature Gran % (Auto) Neut % (Auto) Lymph % (Auto) Medications Given Discontinued Medications Sodium Chloride () 1,000 mls @ 999 mls/hr IV .Q1H1M ONE Stop: 04/11/18 16:35 Last Admin: 04/11/18 16:19 Dose: 999 mls/hr Ketorolac Tromethamine (Toradol) 15 mg IV X1 ONE Stop: 04/11/18 15:36 Last Admin: 04/11/18 16:21 Dose: 15 mg Ondansetron HCl (Zofran) 4 mg IV X1 ONE Stop: 04/11/18 15:36 Last Admin: 04/11/18 16:20 Dose: 4 mg Emergency Department Course and Treatment: This is patient's second visit in 3 days for inability to have a bowel movement, with abdominal pain and vomiting. Patient states she last vomited since coming to the emergency department and it is been dark brown and feculent. I did not actually see any of her vomitus or smell any feculent breath. However patient states she has been having this issue since she has been unable to have a bowel movement. Rectal exam did show soft stool palpable in the proximal rectum but no stool to disimpact to both. Patient had a CT scan 2 days ago, and thus it was not repeated. A KUB that showed large amount of stool in the colon. Labs showed no leukocytosis, electrolyte abnormalities, renal dysfunction, and urinalysis was negative for infection. Patient received IV fluids, Zofran and Toradol for symptomatic relief. She did have mild improvement in her pain and nausea. She was able to move around without exacerbation of symptoms. Because patient does have a history of neurogenic bowel and has not had a bowel movement for 3 weeks, she would benefit from a bowel cleanout in the hospital setting. Patient was discussed with Dr. Chung for admission observation status. Treatment Plan: [] Disposition: [] Impression: obstipation, neurogenic bowel, spina bifida This note was generated with EverTune dictation software. It may contain incorrect words, spelling, and punctuation that were not noted in review of the chart prior to signing ED Disposition - Plan for ED Patient: Chief Complaint: Abd Pain Referrals: Will Dietz MD [Primary Care Provider] - What to do if you have Problems For any increased pain, shortness of breath, bleeding, nausea or vomiting, chest pain, or any unexpected problems, contact your Primary Care Provider. Call [facility] ([phone]) or report to the closest Emergency Room. Call 911 if necessary. 04/11/18 1753 <Electronically signed by Makenzie Wood MD> Date Makenzie Wood MD Cosigner Signature (If Indicated): Date CC: Will Dietz MD ABD INC DECUB Observed: 04/11/2018 Status: F Source: NORMA AND/OR ERECT 3:36 PM [facility] REPOSITORY [facility] Imaging Services [address] [place] [address] Abd Inc Decub and/or Erect MR#: [id number] Acct: [id number] Name: UVALDODEBBY Colette Rep #: [id number] : 1980 F 37 From: Severino Aguilar MD PCP: Will Dietz MD Status: REG ER Study: Abd Inc Decub and/or Erect Date of Exam: 04/11/18 Exam# [id number] Ordering Dr: Makenzie Wood MD STUDY: X-RAY - ABDOMEN/PELVIS REASON FOR EXAM: Female, 37 years old. Abdominal pain, nausea and vomiting since Monday with no bowel movement for 3 weeks. Emesis blackboard arc brown. TECHNIQUE: AP upright and supine abdomen and pelvis. COMPARISON: None. FINDINGS: Normal bowel pattern. Moderate distributed stool burden, not excessive, inconsistent with constipation. Normal small bowel pattern. No evidence of obstruction. No free air. Grossly normal size and position of the solid organs of the abdomen. Mild scoliosis. Evidence of prior mesh hernia repair. RAD/Abd Inc Decub and/or Erect IMPRESSION: Unremarkable bowel pattern. There is no evidence of constipation. The quantity of stool distributed throughout the large bowel is moderate. There is no evidence of bowel obstruction. Electronically Signed: Severino Lauren, at 16:54 EST Tel , Service support , CC: Will Dietz MD; Makenzie Wood MD Paper Rewinder Operator: Signed URINALYSIS, COMPLETE Collected: 04/11/2018 Status: F Source: NORMA 3:05 PM [facility] REPOSITORY Order Comment: How was Urine Obtained? SUSTAINABILITY PROJECT COORDINATOR TO SPECIFY TYPE CODE TESTS RESULT OUT OF RANGE REFERENCE UNITS LAB L400.3000 Yellow COLOR Normal Yellow LAB L400.3050 Clear Normal CLARITY Clear LAB L400.3200 Normal mg/dl High GLUCOSE, UR 1000 LAB L400.3300 Negative mg/dL Normal BILIRUBIN URINE Negative LAB L400.3400 Negative mg/dl Normal KETONE UR Negative LAB L400.3465 1.002-1.030 Normal SP.GR. DIPSTX 1.005 LAB L400.3550 5.0 - 8.0 pH UR Normal 7.0 LAB L400.3600 Negative mg/dl PROT Normal DIPSTX Negative LAB L400.3700 Normal mg/dl Normal UROBILI Normal LAB L400.3750 Negative Normal NITRITE UR Negative LAB L400.3780 Negative /ul High 10 OCCULT BLOOD-UR LAB L400.3800 Negative /ul LEUK Normal ESTERASE Negative LAB L400.4050 0-5 /hpf WBC Normal 0-5 SEEN LAB L400.4100 0-5 /hpf Normal RBC-UA 0-5 SEEN LAB L400.4150 5-10 /hpf SQUAM Normal EPI 0-5 SEEN LAB L400.4300 None Seen /hpf Normal BACTERIA RARE LAB L400.4350 <or=2+ /hpf 0 Normal MUCUS, URINE SEEN Performed By: #### L400.0001 #### [facility] [address] [place], [address] CBC W/DIFF, AUTOMATED Collected: 04/11/2018 Status: F Source: PATRIOT 1:45 PM [facility] REPOSITORY TYPE CODE TESTS RESULT OUT OF RANGE REFERENCE UNITS LAB L100.1000 4.4-11.0 K/mm3 Normal WBC 9.8 LAB L100.1200 4.2-5.4 M/mm3 Normal RBC 4.31 LAB L100.1300 12.0-15.0 g/dl Normal HGB 13.1 LAB L100.1400 37-47 % Normal HCT 39.9 LAB L100.1500 81-99 fL Normal MCV 92.6 LAB L100.1600 27.0-32.0 pg Normal MCH 30.4 LAB L100.1700 32-36 g/gl Normal MCHC 32.8 LAB L100.1810 11.6-14.6 % Normal RDW CV 13.5 LAB L100.1820 35.1-43.9 fl High RDW SD 45.0 LAB L100.1900 150-450 K/mm3 Normal PLT 179 LAB L100.2000 6.2-12.0 fl Normal MPV 11.4 LAB L100.2100 47-70 % Normal NEUT% 67.4 LAB L100.2200 19-41 % Low LY% 14.6 LAB L100.2300 0-10 % Normal MONO% 9.1 LAB L100.2400 0-5 % High EO% 7.6 LAB L100.2500 0-1 % Normal BASO% 0.6 LAB L100.2550 0.0-0.9 % Normal IM GRAN % 0.700 Result Comment: IG% - Immature Granulocytes (promyelocytes, myelocytes and metamyelocytes) > 1% indicates that a LEFT SHIFT is Present. LAB L100.2620 2.0-7.7 X10 3/uL Normal Absolute Neut 6.6 LAB L100.2720 0.83-4.51 X10 3/ul Normal Absolute Lymph 1.43 Performed By: #### L100.0100 #### [facility] [address] [place], [place], [address] BASIC METABOLIC Collected: 04/11/2018 Status: F Source: PATRIOT PROFILE (BMP) 1:45 PM [facility] REPOSITORY TYPE CODE TESTS RESULT OUT OF RANGE REFERENCE UNITS LAB L501.0100 74-106 mg/dL High GLU 292 Result Comment: Glucose result greater than or equal to 200 mg/dL suggests DIABETES MELLITUS per A.D.A. criteria. Please note revised GLUCOSE reference range effective 2017. LAB L501.1000 7-18 mg/dL Normal BUN 10 LAB L501.1100 0.55-1.02 mg/dL High CREAT,SERUM 1.06 Result Comment: The validity of the calculated GFR AND GFRAA in patients over 70 years has not been determined. Clinical correlation is essential. LAB L501.1110 >60 mL/min Normal EST GFR 62 Result Comment: Non- GFR Calc LAB L501.1115 >60 mL/min Normal EST GFR - AA 75 Result Comment: GFR Calc LAB L501.1255 ml/min Normal Estimated CRCL 58.03 LAB L501.1300 10-20 RATIO Low BUN/CRE 9.4 LAB L501.2200 8.5-10 mg/dL Normal .1 CA 9.2 LAB L501.5300 136-14 mmol/L Normal 5 NA 139 LAB L501.5600 3.5-5. mmol/L Normal 1 K 3.7 LAB L501.5900 98-107 mmol/L Normal CL 101 LAB L501.6100 21.0-3 mmol/L Normal 2.0 CO2 27.0 LAB L501.6200 5-15 Normal GAP 11 Performed By: #### L500.2500 #### [facility] [address] [place], [place], [address] ,SERUM,HCG QUALI. Collected: Status: F Source: NORMA 04/11/2018 1:45 PM [facility] REPOSITORY TYPE CODE TESTS RESULT OUT OF REFERENCE UNITS RANGE LAB L700.7000 0-9 Nonpreg Negative Normal HCGSQUAL NEGATIVE LAB L700.6700 =>Qualitative mIU/mL Normal HCG Qual < 1 triggr Performed By: #### L700.6800 #### [facility] [address] [place], [address] THYROID STIM HORMONE Collected: 04/11/2018 Status: F Source: NORMA (TSH) 1:45 PM [facility] REPOSITORY Order Comment: Comments: as add on test TYPE CODE TESTS RESULT OUT OF RANGE REFERENCE UNITS LAB L501.9520 0.358-3.74 uIU/mL Normal TSH 1.00 Performed By: #### L501.9520 #### [facility] [address] [place], [address] EMERGENCY DEPARTMENT Observed: 04/09/2018 Status: F Source: NORMA SUMMARY 3:38 PM [facility] REPOSITORY [facility] Medical Records Department [address] [place] [address] Emergency Department Summary 04/09/18 1529 MR#: [id number] Acct: [id number] Name: DEBBY BAILON Rep #: [id number] : 1980 37 From: Kristen Ohara MD PCP: Will Dietz MD Status: REG ER - ER Visit Summary Date of Service: 04/09/18 Chief Complaint: Abdominal pain, nausea, vomiting History of Present Illness: The patient is a 37 F presenting with abdominal pain, nausea, vomiting. She states this started yesterday. She saw her primary care physician last week. She states today she had dark colored emesis with blood. This is what concerned her so she presented to the emergency department. She has a history of neurogenic bladder and neurogenic bowels. She self caths for urine. She has a tube that she inserts into her umbilicus for bowel irrigation. She states she has been unable to do this for the past 3 weeks. She denies fever. Denies other complaints. Physical Examination: Vitals are stable. Patient is afebrile. Alert no acute distress. HEENT exam is unremarkable. Neck is supple. Lungs are clear and equal bilaterally. Heart is regular rate and rhythm. Abdomen is soft diffuse tenderness with no rebound or guarding Extremities are unremarkable. Skin is warm and dry. Remainder of exam is unremarkable. Emergency Department Course and Treatment: Patient given morphine, Zofran IV. CBC, chemistries unremarkable other than glucose 182. ALT 64, AST 47. Lipase 134. Urinalysis shows glucose. HCG negative. NG tube shows clear drainage. Stool is guaiac negative. CT abdomen pelvis shows stable right hydronephrosis and right hydroureter down to the urinary bladder. Diffuse bladder wall thickening of the urinary bladder. Fatty infiltration of the liver. Findings were discussed with the patient. She is resting comfortably on reevaluation. She is advised to follow-up with her surgeon at [facility] as well as her primary care physician. Advised return to ED if worsening complaints. Disposition: Discharge home Impression: Abdominal pain This note was generated with EverTune dictation software. It may contain incorrect words, spelling, and punctuation that were not noted in review of the chart prior to signing ED Disposition - Plan for ED Patient: Chief Complaint: Abd Pain Referrals: Will Dietz MD [Primary Care Provider] - What to do if you have Problems For any increased pain, shortness of breath, bleeding, nausea or vomiting, chest pain, or any unexpected problems, contact your Primary Care Provider. Call [facility] ([phone]) or report to the closest Emergency Room. Call 911 if necessary. 04/09/18 1538 <Electronically signed by Kristen Ohara MD> Date Kristen Ohara MD Cosigner Signature (If Indicated): Date CC: Will Dietz MD DISCHARGE INSTRUCTION Observed: 04/09/2018 Status: F Source: PATRIOT 3:38 PM [facility] REPOSITORY [facility] Medical Records Department [address] [place] [address] Discharge Instruction 04/09/181537 MR#: [id number] Acct: [id number] Name: DEBBY BAILON Rep #: [id number] : 1980 37 From: Kristen Ohara MD PCP: Will Dietz MD Status: REG ER ED Disposition - Plan for ED Patient: Chief Complaint: Abd Pain Instructions: ED Abdominal Pain Unkn Cause Referrals: Will Dietz MD [Primary Care Provider] - What to do if you have Problems For any increased pain, shortness of breath, bleeding, nausea or vomiting, chest pain, or any unexpected problems, contact your Primary Care Provider. Call [facility] ([phone]) or report to the closest Emergency Room. Call 911 if necessary. 04/09/181537 <Electronically signed by Kristen Ohara MD> Date Kristen Ohara MD Cosigner Signature (If Indicated): Date CC: Will Dietz MD Observed: 04/09/2018 Status: F Source: PAT[place]OT STOOL OCCULT BLOOD 2:40 PM [facility] REPOSITORY STOB iFOB Occult Blood Negative Performed By: #### M100.7900 #### [facility] [address] [place], [address] URINALYSIS, COMPLETE Collected: 04/09/2018 Status: F Source: NORMA 1:30 PM [facility] REPOSITORY Order Comment: Order Date: 04/09/18 How was Urine Obtained? CLEAN CATCH TYPE CODE TESTS RESULT OUT OF RANGE REFERENCE UNITS LAB L400.3000 Yellow COLOR Normal Yellow LAB L400.3050 Clear Normal CLARITY Sl. Cloudy LAB L400.3200 Normal mg/dl High GLUCOSE, UR 250 LAB L400.3300 Negative mg/dL Normal BILIRUBIN URINE Negative LAB L400.3400 Negative mg/dl Normal KETONE UR Negative LAB L400.3465 1.002-1.030 Normal SP.GR. DIPSTX 1.010 LAB L400.3550 5.0 - 8.0 pH UR Normal 7.0 LAB L400.3600 Negative mg/dl High PROT 30 DIPSTX LAB L400.3700 Normal mg/dl High 1 UROBILI LAB L400.3750 Negative Normal NITRITE UR Negative LAB L400.3780 Negative /ul Normal OCCULT BLOOD-UR Negative LAB L400.3800 Negative /ul LEUK Normal ESTERASE Negative LAB L400.4050 0-5 /hpf WBC 0 Normal SEEN LAB L400.4100 0-5 /hpf 0 Normal RBC-UA SEEN LAB L400.4150 5-10 /hpf SQUAM Normal EPI 0-5 SEEN LAB L400.4300 None Seen /hpf 0 Normal BACTERIA SEEN LAB L400.4350 <or=2+ /hpf 0 Normal MUCUS, URINE SEEN Performed By: #### L400.0001 #### [facility] [address] [facility] [place], [address] ABDOMEN SINGLE VIEW Observed: 04/09/2018 Status: F Source: PATRIOT (PORTABLE) 1:06 PM [facility] REPOSITORY [facility] Imaging Services [address] [place] [address] Abdomen Single View (Portable) MR#: [id number] Acct: [id number] Name: DEBBY BAILON Rep #: [id number] : 1980 F 37 From: Stephan Sood MD PCP: Will Dietz MD Status: REG ER Study: Abdomen Single View (Portable) Date of Exam: 04/09/18 Exam# [id number] Ordering Dr: Kristen Ohara MD STUDY: X-RAY - ABDOMEN/PELVIS REASON FOR EXAM: Female, 37 years old. Nasogastric tube placement. TECHNIQUE: Single AP view of the abdomen / pelvis. COMPARISON: None. FINDINGS: Normal visualized lung bases. The tip of the nasogastric tube is in the fundal portion of the stomach. There is a moderate amount of colonic fecal material. There is a 6.6 mm calcification overlying the lower pole calyx of the left kidney. There is evidence of prior ventral hernia repair. Normal soft tissue structures. Spina bifida of the lower lumbar spine. RAD/Abdomen Single View (Portable) IMPRESSION: The tip of the nasogastric tube is seen within the fundal portion of the stomach. Electronically Signed: Stephan Sood MD at 14:01 EST Tel [phone], Service support , CC: Kristen Ohara MD; Will Dietz MD Paper Rewinder Operator: Signed ABDOMEN/PELVIS W IV CONT Observed: 04/09/2018 Status: F Source: NORMA ONLY 1:06 PM [facility] REPOSITORY [facility] Imaging Services [address] [place] [address] Abdomen/Pelvis W IV Cont ONLY MR#: [id number] Acct: [id number] Name: DEBBY BAILON Rep #: [id number] : 1980 F 37 From: Stephan Sood MD PCP: Will Dietz MD Status: REG ER Study: Abdomen/Pelvis W IV Cont ONLY Date of Exam: 04/09/18 Exam# [id number] Ordering Dr: Kristen Ohara MD STUDY: CT ABDOMEN AND PELVIS WITH CONTRAST REASON FOR EXAM: Female, 37 years old. Abdominal pain. Nausea and vomiting. Nasogastric tube is in situ. RADIATION DOSAGE (If Supplied By Facility): CTDIvol = ( 14.70 ) mGy, DLP = ( 1202.90 ) mGycm TECHNIQUE: Transaxial images were obtained from the dome of the diaphragm to the symphysis pubis without oral contrast. 100 ml of Isovue 300 contrast was administered. Sagittal and coronal images were reconstructed. Individualized dose optimization techniques were used for this CT. COMPARISON: Comparison is made with prior study dated March 19, 2018. FINDINGS: A nasogastric tube is seen with the tip in the body of the stomach. Focal pleural plaque calcification along the posterior medial aspect of the right lower lobe. The visualized portions of the heart are within normal limits. There is decreased attenuation of the liver consistent with steatosis. The gallbladder is not visualized most likely secondary to prior cholecystectomy. Normal spleen. Normal pancreas. Normal bilateral adrenal glands. Moderate degree of right-sided hydronephrosis and right hydroureter down to the ureterovesical junction.. Cortical thinning of the superior aspect of the right kidney. Normal left kidney. Normal visualized stomach. Normal small intestine. Normal colon. The appendix is visualized and appears normal. Normal abdominal aorta. Normal inferior vena cava. There is borderline retroperitoneal lymphadenopathy with enlarged nodes no greater than 10mm in the short axis diameter. Diffuse bladder wall thickening. The uterus is tilted towards the right side of midline. 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 Once again, there is evidence of ventral hernia repair with a mesh. Prior laminectomy at the L3-L4 L4-L5 and L5-S1 levels. CT/Abdomen/Pelvis W IV Cont ONLY IMPRESSION: Stable right hydronephrosis and right hydroureter down to the urinary bladder. Diffuse bladder wall thickening of the urinary bladder. Fatty infiltration of the liver. Electronically Signed: Stephan Sood MD at 14:44 EST Tel [phone], Service support , CC: Kristen Ohara MD; Will Dietz MD Paper Rewinder Operator: Signed CBC W/DIFF, AUTOMATED Collected: 04/09/2018 Status: F Source: NORMA 1:00 PM [facility] REPOSITORY TYPE CODE TESTS RESULT OUT OF RANGE REFERENCE UNITS LAB L100.1000 4.4-11.0 K/mm3 Normal WBC 9.2 LAB L100.1200 4.2-5.4 M/mm3 Normal RBC 4.31 LAB L100.1300 12.0-15.0 g/dl Normal HGB 13.1 LAB L100.1400 37-47 % Normal HCT 40.1 LAB L100.1500 81-99 fL Normal MCV 93.0 LAB L100.1600 27.0-32.0 pg Normal MCH 30.4 LAB L100.1700 32-36 g/gl Normal MCHC 32.7 LAB L100.1810 11.6-14.6 % Normal RDW CV 13.8 LAB L100.1820 35.1-43.9 fl High RDW SD 47.0 LAB L100.1900 150-450 K/mm3 Normal PLT 178 LAB L100.2000 6.2-12.0 fl Normal MPV 10.9 LAB L100.2100 47-70 % Normal NEUT% 61.8 LAB L100.2200 19-41 % Normal LY% 23.2 LAB L100.2300 0-10 % High MONO% 10.2 LAB L100.2400 0-5 % Normal EO% 3.9 LAB L100.2500 0-1 % Normal BASO% 0.5 LAB L100.2550 0.0-0.9 % Normal IM GRAN % 0.400 Result Comment: IG% - Immature Granulocytes (promyelocytes, myelocytes and metamyelocytes) > 1% indicates that a LEFT SHIFT is Present. LAB L100.2620 2.0-7.7 X10 3/uL Normal Absolute Neut 5.7 LAB L100.2720 0.83-4.51 X10 3/ul Normal Absolute Lymph 2.14 Performed By: #### L100.0100 #### [facility] [address] [place], [address] COMPREHENSIVE METABOLIC Collected: 04/09/2018 Status: F Source: [facility] 1:00 PM [facility] REPOSITORY TYPE CODE TESTS RESULT OUT OF RANGE REFERENCE UNITS LAB L501.0100 74-106 mg/dL High GLU 182 Result Comment: Fasting Glucose result greater than or equal to 126 mg/dL suggests DIABETES MELLITUS per A.D.A. criteria. Please note revised GLUCOSE reference range effective 2017. LAB L501.1000 7-18 mg/dL Normal BUN 9 LAB L501.1100 0.55-1.02 mg/dL Normal CREAT,SERUM 0.95 Result Comment: The validity of the calculated GFR AND GFRAA in patients over 70 years has not been determined. Clinical correlation is essential. LAB L501.1110 >60 mL/min Normal EST GFR 71 Result Comment: Non- GFR Calc LAB L501.1115 >60 mL/min Normal EST GFR - AA 86 Result Comment: GFR Calc LAB L501.1255 ml/min Normal Estimated CRCL 64.75 LAB L501.1300 10-20 RATIO Low BUN/CRE 9.5 LAB L501.1500 6.4-8. g/dL Normal 2 T PROT 8.0 LAB L501.1800 3.2-5. g/dL Normal 0 ALB 3.7 LAB L501.1950 2.2-4. g/dL High 2 GLOB 4.3 LAB L501.2000 0.9-2. RATIO Normal 4 A/G 0.9 LAB L501.2200 8.5-10 mg/dL Normal .1 CA 8.8 LAB L501.4100 15-37 U/L High AST 47 LAB L501.4305 45-117 U/L Normal ALK P 78 LAB L501.4405 13-56 U/L High ALT 64 LAB L501.4600 0.20-1 mg/dL Normal .00 T BILI 0.50 LAB L501.5300 136-14 mmol/L Normal 5 NA 140 LAB L501.5600 3.5-5. mmol/L Normal 1 K 3.7 LAB L501.5900 98-107 mmol/L Normal CL 104 LAB L501.6100 21.0-3 mmol/L Normal 2.0 CO2 26.0 LAB L501.6200 5-15 Normal GAP 10 Performed By: #### L500.4050, L501.2450 #### [facility] [address] [place], [address] LIPASE Collected: 04/09/2018 Status: F Source: PAT[place]OT 1:00 PM [facility] REPOSITORY TYPE CODE TESTS RESULT OUT OF RANGE REFERENCE UNITS LAB L501.2450 73-393 U/L Normal LIPASE 134 Performed By: #### L500.4050, L501.2450 #### [facility] [address] [place], [address] ,SERUM,HCG QUALI. Collected: Status: F Source: PATRIOT 04/09/2018 1:00 PM [facility] REPOSITORY TYPE CODE TESTS RESULT OUT OF REFERENCE UNITS RANGE LAB L700.6700 =>Qualitative mIU/mL Normal HCG Qual < 1 triggr LAB L700.7000 0-9 Nonpreg Negative Normal HCGSQUAL NEGATIVE Performed By: #### L700.6800 #### [facility] [address] [place], [address] PROGRESS Observed: 04/04/2018 Status: COMPLETED Source: [place] 4:08 PM [facility] REPOSITORY HNO ID: [id number] Author: Will Dietz Service: (none) Author Type: Physician Type: Progress Notes Filed: 04/04/2018 6:37 PM Note Text: Chief Complaint Patient presents with: Recheck: 5 week F/U on depression/anxiety HPI Debby Bailon is a 37 year old female who presents here today for Above Complaints along with the chest pain.. Patient has not had any improvement in her anxiety and depression since the increase in her cymbalta. No side affects from it but her stress level is up and therefore has noted increased anxiety. Has been referred to a ortho spine surgeon but can't get a Appointment until he gets her surgical notes from Dr. Wilhelm. Patient has tried calling office and was told they would get back to her and she never heard from them so she called back a few times. Each time she was placed on hold and then disconnected. Was to see Dr. Hancock for her bladder because she can not control her bladder anymore but missed the appt on 03/12/2018 and can not be seen until early Apr. Patient having incresaed pain near her stoma site and not sure if has a hernia again. Has not contacted her surgeon who treated the hernia in the past. Also is not able to get the cath into the stoma to flush with warm water to help keep stools soft. Has not contacted Dr. Diaz from [facility] who did this since not sure it it's a constipation issue. Still working on getting into the Counseling center but has been having problems with trying to get set up. The abdominal pain has been generalized and to the lower left abdomen but sometimes in the upper mid abdomen. Has vomited several times what she thinks may actually be stool (looks and smells like it) so not sure if there is a blockage. Had a stool accident last night that was between soft and liquid and prior to that a week ago was diarrhea. Has had brownish/geen drainage from her stoma. Past medical history, appointments, medications, allergies reviewed. Previous Medical History PAST MEDICAL HISTORY Diagnosis Date - Abnormal sensation of left upper and lower extremity 08/07/2013 - Anxiety - Arthritis started age 19 - Cervical radiculopathy 05/02/2013 - Chronic pain 02/12/2015 - Cyst of ovary 11/28/2011 - DJD (degenerative joint disease), thoracic - DM (diabetes mellitus), secondary, uncontrolled, w/renal complications (HCC) 12/05/2017 - Dysthymic disorder Depression (non-psychotic), sees BRIM SHAPER at [facility]. 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 Seeing Dr. Gregg - Numbness and tingling of left arm and leg 08/07/2013 - Panic attacks - Paroxysmal SVT (supraventricular tachycardia) ([facility]) 07/03/2017 Per 48 Hr event monitor 06/30/2017 - Primary insomnia 02/17/2016 - Spina bifida (HCC) 01/06/2016 - Thyroid cyst 01/01/2018 Complex right sided cysts. US 12/2017, biopsy per Dr. Josue 01/23/2018 benign. Repeat US in a year. - Type 2 diabetes mellitus with albuminuria ([facility]) 10/18/2016 - 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) 02/19/2016 - Ulcer of left foot ([facility]) 02/21/2017 - Ventral hernia without obstruction or gangrene - Weakness of both upper extremities 08/07/2013 Chronic Previous Surgical History PAST SURGICAL HISTORY Procedure Laterality Date - 2D ECHO (EXEP) 06/28/2017 EF=65%. nl - DANDC, DIAG AND/OR THERAPEUTIC Dilation AND curettage - PAST SURGICAL HISTORY OF cholecystectomy - PAST SURGICAL HISTORY OF 09/2012 back surgery x2 - PAST SURGICAL HISTORY OF Left 9 AND 02/2014 foot x2 - PAST SURGICAL HISTORY OF 07/2015 Knapp stoma - REPAIR UMBILICAL HERNIA 12/11/2017 - STRESS TEST 07/18/2017 normal - STRESS TEST 03/15/2018 negative Family History FAMILY HISTORY Problem Relation Age of Onset - Arthritis Mother - Diabetes Mother - Heart Mother - Hypertension Mother - Lipids Mother - Stroke Mother - Thyroid Mother - Cancer Father Skin - Cancer Maternal Grandmother LIVER CANCER - Cancer Maternal Uncle Great Uncle - Cancer Maternal Uncle Great Uncle Patient Allergies ALLERGIES Allergen Reactions - Mushroom Anaphylaxis - Peanuts Anaphylaxis - Mri Contrast [Gadol* GI Upset Current Medications Current Outpatient Prescriptions on File Prior to Visit: pregabalin (LYRICA) 25 mg capsule Take 1 capsule by mouth once daily. Per Neurology Dr. Calix atorvastatin (LIPITOR) 10 mg tablet Take 1 tablet by mouth once daily. glimepiride (AMARYL) 4 mg tablet Take 1 tablet by mouth daily with breakfast. DULoxetine (CYMBALTA) 60 mg capsule Take 1 capsule by mouth once daily. lisinopril 2.5 mg tablet Take 1 tablet by mouth once daily. metFORMIN ER (GLUCOPHAGE XR) 500 mg 24 hr tablet Take 2 tablets by mouth twice daily. propranolol (INDERAL) 10 mg tablet Take 1 tablet by mouth twice daily. fluticasone (FLONASE) 50 mcg/actuation nasal spray Use 2 Sprays in each nostril once daily. Rinse mouth after use. loratadine (CLARITIN) 10 mg tablet Take 1 tablet by mouth once daily. pseudoephedrine HCl 30 mg CsTR Take 1-2 tablets by mouth every 6 hours as needed. zolpidem (AMBIEN) 10 mg tab Take 1 tablet by mouth as needed. Blood-Glucose Meter (ACCU-CHEK ANISH) [facility] [place] 1 meter kit. Dx: Other DM Code E13.29 Lancets (ACCU-CHEK FASTCLIX) lancets Test blood sugar 2 times/day. Dx: Other DM Code E13.29 Insulin Use: No blood sugar diagnostic (ACCU-CHEK SMARTVIEW TEST STRIP) test strip Test blood sugar(s) 2 times daily. Dx: Other DM Code E13.29 Insulin: No COMPOUNDED PRESCRIPTION Stoma catheter tube.DX: Qo5.4 and K59.2 polyethylene glycol 3350 (MIRALAX) 17 gram/dose powder Take 17 g by mouth once daily. oxybutynin ER (DITROPAN XL) 10 mg 24 hr tablet Take 1 tablet by mouth once daily. hydrOXYzine pamoate (VISTARIL) 25 mg capsule Take 1 capsule by mouth three times daily as needed. Per Counseling Center No current facility-administered medications on file prior to visit. 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 Last 6 Encounter Wt Readings: Date: Wt: 04/04/2018 106.1 kg (234 lb) 02/28/2018 105.7 kg (233 lb) 01/30/2018 108 kg (238 lb) 01/08/2018 108.4 kg (239 lb) 01/02/2018 105.7 kg (233 lb) 12/26/2017 106.6 kg (235 lb) General Appearance: Well appearing, alert, in no acute distress, well-hydrated, well nourished. and Morbidly obese. Lungs: lungs clear to auscultation. No wheezing, rhonchi, rales. Heart: RRR without murmur, gallop, or rubs. No ectopy. Abdomen: Abdomen soft, has tenderness on the left lower abdomen with no guarding. . Bowel sounds normal. No masses, organomegaly. Health Maintenance List DILATED RETINAL EXAM due on 01/25/2018 STATIN MED ADHERENCE due on 04/28/2018 DIABETES MED ADHERENCE due on 04/28/2018 HBA1C due on 05/15/2018 LDL CHOLESTEROL due on 02/13/2019 DIABETIC FOOT EXAM due on 02/28/2019 ANNUAL PCP TEAM CHRONIC DISEASE VISIT due on 03/07/2019 DTAP,TDAP,TD(2 - Td) due on 09/09/2019 PAP EVERY 5 YEARS due on 07/28/2022 HPV EVERY 5 YEARS due on 07/28/2022 ONE PNEUMOVAX PRIOR TO AGE 65 Completed INFLUENZA Completed Data reviewed A/P ASSESSMENT/PLAN: 1. Dysthymic disorder - ICD9: 300.4, ICD10: F34.1 (primary diagnosis) - Will continue Cymbalta 60 mg a day - Add on BUSPIRONE 15 MG TABLET 2. Panic attacks - ICD9: 300.01, ICD10: F41.0 - as per #1 - BUSPIRONE 15 MG TABLET 3. Abdominal pain, unspecified abdominal location - ICD9: 789.00, ICD10: R10.9 Check - CT ABD/PEL W IVCON - IV CONTRAST (RADIOLOGY PROCEDURE) - ENTERIC CONTRAST (RADIOLOGY PROCEDURE) - NORMA CREATININE Signed Prescriptions Disp Refills iv contrast (will be provided with radiology test) 1 Each 0 Sig: CT ABD/PEL -Inject, intravenously, once for 1 dose.No IV access, insert saline lock prior to the beginning of sedation, infusion, injection of imaging exam. Discontinue saline lock post exam. If Pt. has a central line or IVAD, may access for administration according to line specific nursing protocol. Once exam is complete flush line and de- access according to line specific nursing protocol in the CT contrast administration guidelines link. enteric contrast (will be provided with radiology test) 1 Each 0 Sig: For CT ABD/PEL W IVCON Routine order Administer, As Directed One Time Only, via Oral, Rectal, both Oral and Rectal, Enteric Tube, Stoma or Indwelling Catheter, Enteric Contrast as designated per enteric contrast guidelines busPIRone (BUSPAR) 15 mg tablet 60 tablet 3 Sig: Take 1/2 a tab by mouth twice a day for 2 weeks than one twice a day. F/u 5 weeks depression and anxiety Time entering room was 3:59 PM and 4:40 PM (total face to face time was 41 min) Will try to have PCC contact patient and work on helping her get into otho spine surgeon and the counseling Center. Will Dietz MD CNOV Observed: 04/04/2018 Status: COMPLETED Source: [place] 3:40 PM [facility] REPOSITORY Office Visit (FAMPWS) DEBBY BAILON ([id number]) 1980 F Date Time Provider Department 04/04/18 3:40 PM WILL DIETZ During your visit today, we recorded the following information about you: Pulse Respiration Blood pressure Weight 80/minute 16/minute 114/77 106.1 kg Will Dietz MD 04/04/2018 6:37 PM Signed Chief Complaint Patient presents with: Recheck: 5 week F/U on depression/anxiety HPI Debby Bailon is a 37 year old female who presents here today for Above Complaints along with the chest pain.. Patient has not had any improvement in her anxiety and depression since the increase in her cymbalta. No side affects from it but her stress level is up and therefore has noted increased anxiety. Has been referred to a ortho spine surgeon but can't get a Appointment until he gets her surgical notes from Dr. Wilhelm. Patient has tried calling office and was told they would get back to her and she never heard from them so she called back a few times. Each time she was placed on hold and then disconnected. Was to see Dr. Hancock for her bladder because she can not control her bladder anymore but missed the appt on 03/12/2018 and can not be seen until early Apr. Patient having incresaed pain near her stoma site and not sure if has a hernia again. Has not contacted her surgeon who treated the hernia in the past. Also is not able to get the cath into the stoma to flush with warm water to help keep stools soft. Has not contacted Dr. Diaz from [facility] who did this since not sure it it's a constipation issue. Still working on getting into the Counseling center but has been having problems with trying to get set up. The abdominal pain has been generalized and to the lower left abdomen but sometimes in the upper mid abdomen. Has vomited several times what she thinks may actually be stool (looks and smells like it) so not sure if there is a blockage. Had a stool accident last night that was between soft and liquid and prior to that a week ago was diarrhea. Has had brownish/geen drainage from her stoma. Past medical history, appointments, medications, allergies reviewed. Previous Medical History PAST MEDICAL HISTORY Diagnosis Date - Abnormal sensation of left upper and lower extremity 08/07/2013 - Anxiety - Arthritis started age 19 - Cervical radiculopathy 05/02/2013 - Chronic pain 02/12/2015 - Cyst of ovary 11/28/2011 - DJD (degenerative joint disease), thoracic - DM (diabetes mellitus), secondary, uncontrolled, w/renal complications ([facility]) 12/05/2017 - Dysthymic disorder Depression (non-psychotic), sees BRIM SHAPER at [facility]. - History of kidney stones 01/04/2016 - History of recurrent UTIs 11/28/2011 - Hydronephrosis, right 01/04/2016 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 - Lumbago 02/12/2015 - Migraine without aura and without status migrainosus, not intractable 10/18/2016 - Miscarriage - Morbid obesity ([facility]) 02/12/2015 - Muscle weakness of left lower extremity 08/07/2013 - Neck pain 05/02/2013 - Neurogenic bladder 02/12/2015 - Neurogenic bowel 01/06/2016 - Neuropathy ([facility]) 02/12/2015 post back surgery with secondary infection. Seeing Dr. Gregg - Numbness and tingling of left arm and leg 08/07/2013 - Panic attacks - Paroxysmal SVT (supraventricular tachycardia) ([facility]) 07/03/2017 Per 48 Hr event monitor 06/30/2017 - Primary insomnia 02/17/2016 - Spina bifida (HCC) 01/06/2016 - Thyroid cyst 01/01/2018 Complex right sided cysts. US 12/2017, biopsy per Dr. Josue 01/23/2018 benign. Repeat US in a year. - Type 2 diabetes mellitus with albuminuria ([facility]) 10/18/2016 - Type 2 diabetes mellitus with proteinuria ([facility]) 02/19/2016 - Ulcer of left foot ([facility]) 02/21/2017 - Ventral hernia without obstruction or gangrene - Weakness of both upper extremities 08/07/2013 Chronic Previous Surgical History PAST SURGICAL HISTORY Procedure Laterality Date - 2D ECHO (EXEP) 06/28/2017 EF=65%. nl - DANDC, DIAG AND/OR THERAPEUTIC Dilation AND curettage - PAST SURGICAL HISTORY OF cholecystectomy - PAST SURGICAL HISTORY OF 09/2012 back surgery x2 - PAST SURGICAL HISTORY OF Left AND 02/2014 foot x2 - PAST SURGICAL HISTORY OF 07/2015 Knapp stoma - REPAIR UMBILICAL HERNIA 12/11/2017 - STRESS TEST 07/18/2017 normal - STRESS TEST 03/15/2018 negative Family History FAMILY HISTORY Problem Relation Age of Onset - Arthritis Mother - Diabetes Mother - Heart Mother - Hypertension Mother - Lipids Mother - Stroke Mother - Thyroid Mother - Cancer Father Skin - Cancer Maternal Grandmother LIVER CANCER - Cancer Maternal Uncle Great Uncle - Cancer Maternal Uncle Great Uncle Patient Allergies ALLERGIES Allergen Reactions - Mushroom Anaphylaxis - Peanuts Anaphylaxis - Mri Contrast [Gadol* GI Upset Current Medications Current Outpatient Prescriptions on File Prior to Visit: pregabalin (LYRICA) 25 mg capsule Take 1 capsule by mouth once daily. Per Neurology Dr. Calix atorvastatin (LIPITOR) 10 mg tablet Take 1 tablet by mouth once daily. glimepiride (AMARYL) 4 mg tablet Take 1 tablet by mouth daily with breakfast. DULoxetine (CYMBALTA) 60 mg capsule Take 1 capsule by mouth once daily. lisinopril 2.5 mg tablet Take 1 tablet by mouth once daily. metFORMIN ER (GLUCOPHAGE XR) 500 mg 24 hr tablet Take 2 tablets by mouth twice daily. propranolol (INDERAL) 10 mg tablet Take 1 tablet by mouth twice daily. fluticasone (FLONASE) 50 mcg/actuation nasal spray Use 2 Sprays in each nostril once daily. Rinse mouth after use. loratadine (CLARITIN) 10 mg tablet Take 1 tablet by mouth once daily. pseudoephedrine HCl 30 mg CsTR Take 1-2 tablets by mouth every 6 hours as needed. zolpidem (AMBIEN) 10 mg tab Take 1 tablet by mouth as needed. Blood-Glucose Meter (ACCU-CHEK ANISH) [facility] [place] 1 meter kit. Dx: Other DM Code E13.29 Lancets (ACCU-CHEK FASTCLIX) lancets Test blood sugar 2 times/day. Dx: Other DM Code E13.29 Insulin Use: No blood sugar diagnostic (ACCU-CHEK SMARTVIEW TEST STRIP) test strip Test blood sugar(s) 2 times daily. Dx: Other DM Code E13.29 Insulin: No COMPOUNDED PRESCRIPTION Stoma catheter tube.DX: Qo5.4 and K59.2 polyethylene glycol 3350 (MIRALAX) 17 gram/dose powder Take 17 g by mouth once daily. oxybutynin ER (DITROPAN XL) 10 mg 24 hr tablet Take 1 tablet by mouth once daily. hydrOXYzine pamoate (VISTARIL) 25 mg capsule Take 1 capsule by mouth three times daily as needed. Per Counseling [facility] No current facility-administered medications on file prior to visit. 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 Last 6 Encounter Wt Readings: Date: Wt: 04/04/2018 106.1 kg (234 lb) 02/28/2018 105.7 kg (233 lb) 01/30/2018 108 kg (238 lb) 01/08/2018 108.4 kg (239 lb) 01/02/2018 105.7 kg (233 lb) 12/26/2017 106.6 kg (235 lb) General Appearance: Well appearing, alert, in no acute distress, well-hydrated, well nourished. and Morbidly obese. Lungs: lungs clear to auscultation. No wheezing, rhonchi, rales. Heart: RRR without murmur, gallop, or rubs. No ectopy. Abdomen: Abdomen soft, has tenderness on the left lower abdomen with no guarding. . Bowel sounds normal. No masses, organomegaly. Health Maintenance List DILATED RETINAL EXAM due on 01/25/2018 STATIN MED ADHERENCE due on 04/28/2018 DIABETES MED ADHERENCE due on 04/28/2018 HBA1C due on 05/15/2018 LDL CHOLESTEROL due on 02/13/2019 DIABETIC FOOT EXAM due on 02/28/2019 ANNUAL PCP TEAM CHRONIC DISEASE VISIT due on 03/07/2019 DTAP,TDAP,TD(2 - Td) due on 09/09/2019 PAP EVERY 5 YEARS due on 07/28/2022 HPV EVERY 5 YEARS due on 07/28/2022 ONE PNEUMOVAX PRIOR TO AGE 65 Completed INFLUENZA Completed Data reviewed A/P ASSESSMENT/PLAN: 1. Dysthymic disorder - ICD9: 300.4, ICD10: F34.1 (primary diagnosis) - Will continue Cymbalta 60 mg a day - Add on BUSPIRONE 15 MG TABLET 2. Panic attacks - ICD9: 300.01, ICD10: F41.0 - as per #1 - BUSPIRONE 15 MG TABLET 3. Abdominal pain, unspecified abdominal location - ICD9: 789.00, ICD10: R10.9 Check - CT ABD/PEL W IVCON - IV CONTRAST (RADIOLOGY PROCEDURE) - ENTERIC CONTRAST (RADIOLOGY PROCEDURE) - NORMA CREATININE Signed Prescriptions Disp Refills iv contrast (will be provided with radiology test) 1 Each 0 Sig: CT ABD/PEL -Inject, intravenously, once for 1 dose.No IV access, insert saline lock prior to the beginning of sedation, infusion, injection of imaging exam. Discontinue saline lock post exam. If Pt. has a central line or IVAD, may access for administration according to line specific nursing protocol. Once exam is complete flush line and de-access according to line specific nursing protocol in the CT contrast administration guidelines link. enteric contrast (will be provided with radiology test) 1 Each 0 Sig: For CT ABD/PEL W IVCON Routine order Administer, As Directed One Time Only, via Oral, Rectal, both Oral and Rectal, Enteric Tube, Stoma or Indwelling Catheter, Enteric Contrast as designated per enteric contrast guidelines busPIRone (BUSPAR) 15 mg tablet 60 tablet 3 Sig: Take 1/2 a tab by mouth twice a day for 2 weeks than one twice a day. F/u 5 weeks depression and anxiety Time entering room was 3:59 PM and 4:40 PM (total face to face time was 41 min) Will try to have PCC contact patient and work on helping her get into otho spine surgeon and the counseling Center. MD Will Sinha MD 04/04/2018 4:38 PM Signed On the day of your CAT scan do not take the metformin. Let me know when the CAT scan has been done so I can set up a lab draw to check kidnies and let you know if ok to restart. Referring Provider: WILL DIETZ [[id number]] Allergies As of Date: 04/04/2018 Noted Allergy Reaction MUSHROOM 06/10/2016 10 - Anaphylaxis PEANUTS 06/10/2016 10 - Anaphylaxis MRI CONTRAST (GADOLINIUM-CONTAINI*01/03/2017 8 - GI Upset Date Reviewed: 04/04/2018 Reviewed by: Will Dietz - Fully Assessed Reason for Visit: Recheck [92] Cmt: 5 week F/U on depression/anxiety Primary Visit Diagnosis:Dysthymic disorder [F34.1] Other Visit Diagnoses:Panic attacks [F41.0] Abdominal pain, unspecified abdominal location [R10.9] Order(s):CT ABD/PEL W IVCON [[id number]] Order #: [id number] FUTURE iv contrast (will be provided with radiology test)CT ABD/PEL -Inject, intravenously, once for 1 dose.No IV access, insert saline lock prior to the beginning of sedation, infusion, injection of imaging exam. Discontinue saline lock post exam. If Pt. has a central line or IVAD, may access for administration according to line specific nursing protocol. Once exam is complete flush line and de- access according to line specific nursing protocol in the CT contrast administration guidelines link.Disp: 1 EachRfl: 0 enteric contrast (will be provided with radiology test)For CT ABD/PEL W IVCON Routine order Administer, As Directed One Time Only, via Oral, Rectal, both Oral and Rectal, Enteric Tube, Stoma or Indwelling Catheter, Enteric Contrast as designated per enteric contrast guidelinesDisp: 1 EachRfl: 0 NORMA CREATININE [SQWCRET] Order #: [id number] FUTURE busPIRone (BUSPAR) 15 mg tabletTake 1/2 a tab by mouth twice a day for 2 weeks than one twice a day.Disp: 60 tabletRfl: 3 Prescriptions as of 04/04/2018 Sig: PREGABALIN 25 MG CAPSULE Take 1 capsule by mouth once * ATORVASTATIN 10 MG TABLET Take 1 tablet by mouth once d* GLIMEPIRIDE 4 MG TABLET Take 1 tablet by mouth daily * DULOXETINE 60 MG CAPSULE,SHERRY* Take 1 capsule by mouth once * LISINOPRIL 2.5 MG TABLET Take 1 tablet by mouth once d* METFORMIN ER 500 MG TABLET,EX* Take 2 tablets by mouth twice* PROPRANOLOL 10 MG TABLET Take 1 tablet by mouth twice * FLUTICASONE 50 MCG/ACTUATION * Use 2 Sprays in each nostril * LORATADINE 10 MG TABLET Take 1 tablet by mouth once d* PSEUDOEPHEDRINE 30 MG CAPSULE* Take 1-2 tablets by mouth sarah* ZOLPIDEM 10 MG TABLET Take 1 tablet by mouth as nee* BLOOD-GLUCOSE METER Dispense 1 meter kit. Dx: Ot* LANCETS Test blood sugar 2 times/day* BLOOD SUGAR DIAGNOSTIC STRIPS Test blood sugar(s) 2 times d* COMPOUNDED PRESCRIPTION Stoma catheter tube. DX: Qo5* POLYETHYLENE GLYCOL 3350 17 G* Take 17 g by mouth once daily. OXYBUTYNIN CHLORIDE ER 10 MG * Take 1 tablet by mouth once d* HYDROXYZINE PAMOATE 25 MG CAP* Take 1 capsule by mouth three* IV CONTRAST (RADIOLOGY PROCED* CT ABD/PEL -Inject, intraveno* ENTERIC CONTRAST (RADIOLOGY P* For CT ABD/PEL W IVCON Routin* BUSPIRONE 15 MG TABLET Take 1/2 a tab by mouth twice* Problem List As Of Date 04/04/2018 Noted Resolved Threatened , antepartum [O20.0] INVALID FOR*04/07/2011 Supervision of normal first [Z34.00] INVALID FOR*04/07/2011 Cyst of ovary [N83.209] INVALID FOR* Priority: C Depressive disorder, not elsewhere classified [*INVALID FOR*01/06/2016 Priority: A More... Anxiety [F41.9] INVALID FOR* Priority: A More... Dysthymic disorder [F34.1] Priority: A More... Panic attacks [F41.0] Priority: A Neck pain [M54.2] INVALID FOR* Priority: M Cervical radiculopathy [M54.12] INVALID FOR* Priority: M Weakness of both upper extremities [R29.898] INVALID FOR* Priority: M More... Muscle weakness of lower extremity [M62.81] INVALID FOR* Priority: M More... 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 Morbid obesity ([facility]) [E66.01] INVALID FOR* Priority: B Chronic pain [G89.29] INVALID FOR* Priority: M Neurogenic bladder [N31.9] INVALID FOR* Priority: B Hydronephrosis, right [N13.30] INVALID FOR* Priority: C History of kidney stones [Z87.442] INVALID FOR* Priority: C Spina bifida ([facility]) [Q05.9] INVALID FOR* Priority: B More... Neurogenic bowel [K59.2] INVALID FOR* Priority: B Primary insomnia [F51.01] INVALID FOR* Priority: A Type 2 diabetes mellitus with proteinuria ([facility])*INVALID FOR* Priority: A Pyelonephritis [N12] INVALID FOR* Diabetic eye exam ([facility]) [Z01.00, E11.9] INVALID FOR* Priority: A More... Migraine without aura and without status migrai*INVALID FOR*02/28/2018 Priority: A Type 2 diabetes mellitus with albuminuria ([facility])*INVALID FOR* Priority: A Well adult exam [Z00.00] INVALID FOR* Priority: E More... Paroxysmal SVT (supraventricular tachycardia) (*INVALID FOR* Priority: A More... DM (diabetes mellitus), secondary, uncontrolled*INVALID FOR* Priority: A S/P hernia repair [Z98.890, Z87.19] INVALID FOR* Thyroid cyst [E04.1] INVALID FOR* Priority: A More... Migraine without aura and without status migrai*INVALID FOR* Priority: A Medicare annual wellness visit, subsequent [Z00*INVALID FOR* Priority: E More... Mixed hyperlipidemia [E78.2] INVALID FOR* Priority: A History of recurrent UTIs [Z87.440] INVALID FOR* Priority: C Other instructions from your clinician: On the day of your CAT scan do not take the metformin. Let me know when the CAT scan has been done so I can set up a lab draw to check kidnies and let you know if ok to restart. Prescriptions ordered this encounter Disp Refills Start End IV CONTRAST (RADIOLOGY PROCEDURE) 1 Ea* 0 04/04/2018 04/05/2018 Class: In Office Sig: CT ABD/PEL -Inject, intravenously, once for 1 dose.No IV access, insert saline lock prior to the beginning of sedation, infusion, injection of imaging exam. Discontinue saline lock post exam. If Pt. has a central line or IVAD, may access for administration according to line specific nursing protocol. Once exam is complete flush line and de-access according to line specific nursing protocol in the CT contrast administration guidelines link. ENTERIC CONTRAST (RADIOLOGY PROCEDUR* 1 Ea* 0 04/04/2018 04/05/2018 Class: In Office Sig: For CT ABD/PEL W IVCON Routine order Administer, As Directed One Time Only, via Oral, Rectal, both Oral and Rectal, Enteric Tube, Stoma or Indwelling Catheter, Enteric Contrast as designated per enteric contrast guidelines BUSPIRONE 15 MG TABLET 60 t* 3 04/04/2018 Sig: Take 1/2 a tab by mouth twice a day for 2 weeks than one twice a day. Disposition: Return in about 5 weeks (around 05/09/2018) for f/u of dysthmia and anxiety. Follow-up and Disposition History Recorded Encounter Status:Closed by WILL DIETZ on 04/04/18 ANDREW Observed: 03/27/2018 Status: COMPLETED Source: [place] 12:[address] [facility] REPOSITORY Telephone ([employer]) DEBBY BAILON ([id number]) 1980 F Date Time Provider Department 03/27/18 COSME (PHARMACIST)EMELY During your visit today, we recorded the following information about you: DWAYNE TORREZ 03/27/2018 4:43 PM Signed Contacted patient in attempt to reschedule missed appointment today. Phone message states it is not accepting calls at this time. Emely Aguiar, PharmD, BCPS EMELY AGUIAR, PHARMACIST 04/02/2018 12:29 PM Signed Second attempt made. Still not accepting calls. Allergies As of Date: 03/27/2018 Noted Allergy Reaction MUSHROOM 06/10/2016 10 - Anaphylaxis PEANUTS 06/10/2016 10 - Anaphylaxis MRI CONTRAST (GADOLINIUM-CONTAINI*01/03/2017 8 - GI Upset Date Reviewed: 03/07/2018 Reviewed by: Romel) Ronaldo - Fully Assessed Reason for Visit: Missed Appointment [1304] Prescriptions as of 03/27/2018 Sig: PREGABALIN 25 MG CAPSULE Take 1 capsule by mouth once * ATORVASTATIN 10 MG TABLET Take 1 tablet by mouth once d* GLIMEPIRIDE 4 MG TABLET Take 1 tablet by mouth daily * DULOXETINE 60 MG CAPSULE,SHERRY* Take 1 capsule by mouth once * LISINOPRIL 2.5 MG TABLET Take 1 tablet by mouth once d* METFORMIN ER 500 MG TABLET,EX* Take 2 tablets by mouth twice* PROPRANOLOL 10 MG TABLET Take 1 tablet by mouth twice * FLUTICASONE 50 MCG/ACTUATION * Use 2 Sprays in each nostril * LORATADINE 10 MG TABLET Take 1 tablet by mouth once d* PSEUDOEPHEDRINE 30 MG CAPSULE* Take 1-2 tablets by mouth sarah* ZOLPIDEM 10 MG TABLET Take 1 tablet by mouth as nee* BLOOD-GLUCOSE METER Dispense 1 meter kit. Dx: Ot* LANCETS Test blood sugar 2 times/day* BLOOD SUGAR DIAGNOSTIC STRIPS Test blood sugar(s) 2 times d* COMPOUNDED PRESCRIPTION Stoma catheter tube. DX: Qo5* POLYETHYLENE GLYCOL 3350 17 G* Take 17 g by mouth once daily. OXYBUTYNIN CHLORIDE ER 10 MG * Take 1 tablet by mouth once d* HYDROXYZINE PAMOATE 25 MG CAP* Take 1 capsule by mouth three* Problem List As Of Date 03/27/2018 Noted Resolved Threatened , antepartum [O20.0] INVALID FOR*04/07/2011 Supervision of normal first [Z34.00] INVALID FOR*04/07/2011 Cyst of ovary [N83.209] INVALID FOR* Priority: C Depressive disorder, not elsewhere classified [*INVALID FOR*01/06/2016 Priority: A More... Anxiety [F41.9] INVALID FOR* Priority: A More... Dysthymic disorder [F34.1] Priority: A More... Panic attacks [F41.0] Priority: A Neck pain [M54.2] INVALID FOR* Priority: M Cervical radiculopathy [M54.12] INVALID FOR* Priority: M Weakness of both upper extremities [R29.898] INVALID FOR* Priority: M More... Muscle weakness of lower extremity [M62.81] INVALID FOR* Priority: M More... 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 Morbid obesity ([facility]) [E66.01] INVALID FOR* Priority: B Chronic pain [G89.29] INVALID FOR* Priority: M Neurogenic bladder [N31.9] INVALID FOR* Priority: B Hydronephrosis, right [N13.30] INVALID FOR* Priority: C History of kidney stones [Z87.442] INVALID FOR* Priority: C Spina bifida ([facility]) [Q05.9] INVALID FOR* Priority: B More... Neurogenic bowel [K59.2] INVALID FOR* Priority: B Primary insomnia [F51.01] INVALID FOR* Priority: A Type 2 diabetes mellitus with proteinuria ([facility])*INVALID FOR* Priority: A Pyelonephritis [N12] INVALID FOR* Diabetic eye exam ([facility]) [Z01.00, E11.9] INVALID FOR* Priority: A More... Migraine without aura and without status migrai*INVALID FOR*02/28/2018 Priority: A Type 2 diabetes mellitus with albuminuria ([facility])*INVALID FOR* Priority: A Well adult exam [Z00.00] INVALID FOR* Priority: E More... Paroxysmal SVT (supraventricular tachycardia) (*INVALID FOR* Priority: A More... DM (diabetes mellitus), secondary, uncontrolled*INVALID FOR* Priority: A S/P hernia repair [Z98.890, Z87.19] INVALID FOR* Thyroid cyst [E04.1] INVALID FOR* Priority: A More... Migraine without aura and without status migrai*INVALID FOR* Priority: A Medicare annual wellness visit, subsequent [Z00*INVALID FOR* Priority: E More... Mixed hyperlipidemia [E78.2] INVALID FOR* Priority: A History of recurrent UTIs [Z87.440] INVALID FOR* Priority: C Encounter Status:Closed by COSME (PHARMACIST)EMELY on 03/27/18 SPINE LUMBAR W/WO Observed: 03/23/2018 Status: F Source: [place] CONTRAST 7:13 AM [facility] REPOSITORY [facility] Imaging Services [address] [place] [address] Spine Lumbar W/WO Contrast MR#: [id number] Acct: [id number] Name: DEBBY BAILON Rep #: [id number] : 1980 F 37 From: Jessie Patel MD PCP: Will Dietz MD Status: REG CLI Study: Spine Lumbar W/WO Contrast Date of Exam: 03/23/18 Exam# [id number] Ordering Dr: Celine Fung STUDY: MRI LUMBAR SPINE WITH AND WITHOUT CONTRAST REASON FOR EXAM: Female, 37 years old. Spinal stenosis. History of spina bifida and prior surgeries with fatty tumor removed. TECHNIQUE: Standardized fat and water weighted pulse sequences were obtained in the sagittal and axial planes. 10 ml of Gadavist contrast material was administered for the contrast portion of the examination. COMPARISON: 04/05/2016. FINDINGS: T12-L1: Normal endplates. Disc dehydration. There is a mild spondylotic bar on the right, causing mild cord flattening. Normal bilateral facet joints. Normal central canal and bilateral lateral recesses. Normal bilateral intervertebral neural foramina. Normal lumbar lordosis. There is no substantial scoliosis. 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 There is evidence of spina bifida at the L4-5 and L5-S1 levels, with a residual or recurrent lipoma at the site of the defect at the L5 level measuring 2.1 x 2.1 x 0.9 cm. There is no significant change compared to the prior study. L1-2: Normal endplates. Normal disc height, hydration and morphology. Normal bilateral facet joints. Normal central canal and bilateral lateral recesses. Normal bilateral intervertebral neural foramina. L2-3: Normal endplates. Normal disc height, hydration and morphology. Normal bilateral facet joints. Normal central canal and bilateral lateral recesses. Normal bilateral intervertebral neural foramina. L3-4: Normal endplates. Normal disc height, hydration and morphology. Normal bilateral facet joints. Normal central canal and bilateral lateral recesses. Normal bilateral intervertebral neural foramina. L4-5: Normal endplates. Normal disc height, hydration and morphology. Normal bilateral facet joints. Normal central canal and bilateral lateral recesses. Normal bilateral intervertebral neural foramina. Spina bifida. L5-S1: Normal endplates. Normal disc height, hydration and morphology. Normal bilateral facet joints. Normal central canal and bilateral lateral recesses. Normal bilateral intervertebral neural foramina. Spina bifida. There is no enhancing lesion. Normal visualized sacral ala. Normal visualized paraspinous soft tissue structures. MRI/Spine Lumbar W/WO Contrast IMPRESSION: 1. 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 No change from prior. 2. Spina bifida at L4-5 and L5-S1, with residual or recurrent 2 cm lipoma at the L5 level in the posterior bony defect. No change from prior. Electronically Signed: Jessie Patel MD at 17:27 EDT Tel , Service support , CC: MARIO Fung; Will Dietz MD Paper Rewinder Operator: Signed EMERGENCY DEPARTMENT Observed: 03/23/2018 Status: F Source: PATRIOT SUMMARY 12:36 AM [facility] REPOSITORY [facility] Medical Records Department [address] [place] [address] Emergency Department Summary 03/22/18 2340 MR#: [id number] Acct: [id number] Name: DEBBY BAILON Rep #: [id number] : 1980 37 From: Kristen Ohara MD PCP: Will Dietz MD Status: DEP ER - ER Visit Summary Date of Service: 03/22/18 Chief Complaint: Left knee pain History of Present Illness: The patient is a 37 F presenting with left knee pain. Patient states she was walking up the steps and twisted her left knee. She did not hit her head or lose consciousness. She complains of left knee pain. Denies other injuries. Physical Examination: Vitals are stable. Patient is afebrile. Alert no acute distress. HEENT exam is unremarkable. Lungs are clear and equal bilaterally. Heart is regular rate and rhythm. Extremities left anterior knee tenderness, painful range of motion Skin is warm and dry. No focal neurologic deficit. Remainder of exam is unremarkable. Emergency Department Course and Treatment: Left knee x-ray shows no acute process. Ice pack was applied. She was given OxyIR x1 and a prescription for Naprosyn. She is advised to follow-up with her primary care physician. Advised return to ED for worsening complaints. Disposition: Discharge home Impression: Left knee sprain This note was generated with EverTune dictation software. It may contain incorrect words, spelling, and punctuation that were not noted in review of the chart prior to signing ED Disposition - Plan for ED Patient: Chief Complaint: Lower Extremity Injury Instructions: ED Sprain Knee Prescriptions: Naproxen [Naprosyn] 500 mg PO BID PRN #20 tablet Referrals: Will Dietz MD [Primary Care Provider] - What to do if you have Problems For any increased pain, shortness of breath, bleeding, nausea or vomiting, chest pain, or any unexpected problems, contact your Primary Care Provider. Call [facility] ([phone]) or report to the closest Emergency Room. Call 911 if necessary. 03/23/18 0036 <Electronically signed by Kristen Ohara MD> Date Kristen Ohara MD Cosigner Signature (If Indicated): Date CC: Will Dietz MD DISCHARGE INSTRUCTION Observed: 03/22/2018 Status: F Source: [place] 11:40 PM [facility] REPOSITORY [facility] Medical Records Department [address] [place] [address] Discharge Instruction 03/22/18 2339 MR#: [id number] Acct: [id number] Name: UVALDODEBBY L Rep #: [id number] : 1980 37 From: Kristen Ohara MD PCP: Will Dietz MD Status: REG ER ED Disposition - Plan for ED Patient: Chief Complaint: Lower Extremity Injury Instructions: ED Sprain Knee Prescriptions: Naproxen [Naprosyn] 500 mg PO BID PRN #20 tablet Referrals: Will Dietz MD [Primary Care Provider] - What to do if you have Problems For any increased pain, shortness of breath, bleeding, nausea or vomiting, chest pain, or any unexpected problems, contact your Primary Care Provider. Call [facility] [employer] ([phone]) or report to the closest Emergency Room. Call 911 if necessary. 03/22/18 2340 <Electronically signed by Kristen Ohara MD> Date Kristen Ohara MD Cosigner Signature (If Indicated): Date CC: Will Dietz MD KNEE 4 OR MORE Observed: 03/22/2018 Status: F Source: [place]MA VIEWS 11:01 PM [facility] REPOSITORY [facility] Imaging Services [address] [place] [address] Knee 4 or More Views MR#: [id number] Acct: [id number] Name: DEBBY BAILON Rep #: [id number] : 1980 F 37 From: Jessie Patel MD PCP: Will Dietz MD Status: REG ER Study: Knee 4 or More Views Date of Exam: 03/22/18 Exam# [id number] Ordering Dr: Kristen Ohara MD STUDY: X-RAY - LEFT KNEE REASON FOR EXAM: Female, 37 years old. Twisting injury, knee pain. TECHNIQUE: 4 view(s) of the knee. COMPARISON: None. FINDINGS: Normal visualized distal femur. Normal visualized proximal tibia and fibula. Normal proximal tibiofibular articulation. Normal medial femorotibial compartment. Normal lateral femorotibial compartment. Normal patellofemoral articulation. The soft tissue structures are unremarkable. RAD/Knee 4 or More Views IMPRESSION: Normal x-ray examination of the knee. Electronically Signed: Jessie Patel MD at 23:32 EDT Tel , Service support , CC: Kristen Ohara MD; Will Dietz MD Paper Rewinder Operator: Signed 12 LEAD ELECTROCARDIOGRAM Observed: 03/21/2018 Status: F Source: [place] 1:31 PM [facility] REPOSITORY [facility] Cardiovascular Services [address] [place] [address] 12 Lead EKG 03/19/18 2304 MR#: [id number] Acct: [id number] Name: DEBBY BAILON Rep #: [id number] : 1980 37 From: Jayson Alvarez MD Attending Dr: Status: [facility] ER Ordering Dr: Kristen Ohara MD Date: 03/19/18 Location: ED Sex: F C Admitted: Test Reason : ABD PAIN Blood Pressure : / mmHG Vent. Rate : 086 BPM Atrial Rate : 086 BPM P-R Int : 136 ms QRS Dur : 080 ms QT Int : 388 ms P-R-T Axes : 019 027 014 degrees QTc Int : 464 ms Normal sinus rhythm Normal ECG Confirmed by STEFANI FITZGERALDJAYSON ([id number]), editorial specialist LYLA HAY ([id number]) on 03/21/2018 1:31:31 PM Referred By: ISAURA Confirmed By:JAYSON ALVAREZ MD 03/21/18 1331 Date Jayson Alvarez MD CC: Kristen Ohara MD; Will Dietz MD Signed EMERGENCY DEPARTMENT Observed: 03/20/2018 Status: F Source: PAT[place]OT SUMMARY 4:46 AM [facility] REPOSITORY [facility] Medical Records Department [address] [place] [address] Emergency Department Summary 03/19/18 2258 MR#: [id number] Acct: [id number] Name: DEBBY BAILON Rep #: [id number] : 1980 37 From: Kristen Ohara MD PCP: Will Dietz MD Status: DEP ER - ER Visit Summary Date of Service: 03/19/18 Chief Complaint: Right flank pain History of Present Illness: The patient is a 37 F presenting with right flank pain which has been ongoing for the past week. She was seen in the ED on Monday. She states she was given a prescription for Cipro for a bladder infection. She states she continues to have pain and vomiting at home. She states she has vomited 5 times today. Denies blood in her emesis. She had subjective fever at home. She also complains of chest pain which has been ongoing for the past week. She states this is worsened with cough. She has been taking ibuprofen at home. She denies other complaints. Physical Examination: Vitals are stable. Patient is afebrile. Alert no acute distress. HEENT exam is unremarkable. Neck is supple. Lungs are clear and equal bilaterally. Heart is regular rate and rhythm. Abdomen is soft right lower quadrant tenderness with no rebound or guarding Back: Right CVA tenderness Extremities are unremarkable. Skin is warm and dry. Remainder of exam is unremarkable. Emergency Department Course and Treatment: Patient given IV fluids, morphine, Zofran. EKG is sinus rate of 86 with no acute ischemic changes. CBC, chemistries unremarkable other than glucose 196. Urinalysis shows 50-100 red blood cells, 0 white blood cells. HCG negative. D-dimer 0.55. Troponin is negative. Chest x-ray shows no acute process. CT abdomen pelvis shows right sided hydroureteronephrosis with no demonstrable obstruction calculus in the right ureter. A tiny 7.8 mm diverticulum in the left margin of the urinary bladder. Right-sided hydro is similar to previous studies. Due to elevated d-dimer, CTA chest was obtained and shows no acute process. Patient is given a prescription for Zofran. She is advised to follow-up with Dr. Reza and her primary care physician. She is advised to return to ED if worsening complaints. Disposition: Discharge home Impression: Abdominal pain, atypical chest pain This note was generated with EverTune dictation software. It may contain incorrect words, spelling, and punctuation that were not noted in review of the chart prior to signing ED Disposition - Plan for ED Patient: Disposition: Home or Assisted Living Chief Complaint: Abd Pain Instructions: ED Abdominal Pain Unkn Cause Prescriptions: Ondansetron [Zofran Odt] 4 mg PO Q8H PRN PRN #10 tablet PRN Reason: Nausea Referrals: Will Dietz MD [Primary Care Provider] - Herbert Reza MD [STAFF PHYSICIAN] - What to do if you have Problems For any increased pain, shortness of breath, bleeding, nausea or vomiting, chest pain, or any unexpected problems, contact your Primary Care Provider. Call [facility] ([phone]) or report to the closest Emergency Room. Call 911 if necessary. 03/20/18 0446 <Electronically signed by Kristen Ohara MD> Date Kristen Ohara MD Cosigner Signature (If Indicated): Date CC: Will Dietz MD DISCHARGE INSTRUCTION Observed: 03/20/2018 Status: F Source: [place] 1:59 AM [facility] REPOSITORY [facility] Medical Records Department [address] [place] [address] Discharge Instruction 03/20/18 0158 MR#: [id number] Acct: [id number] Name: DEBBY BAILON Rep #: [id number] : 1980 37 From: Kristen Ohara MD PCP: Will Dietz MD Status: REG ER ED Disposition - Plan for ED Patient: Chief Complaint: Abd Pain Instructions: ED Abdominal Pain Unkn Cause Prescriptions: Ondansetron [Zofran Odt] 4 mg PO Q8H PRN PRN #10 tablet PRN Reason: Nausea Referrals: Will Dietz MD [Primary Care Provider] - Herbert Reza MD [STAFF PHYSICIAN] - What to do if you have Problems For any increased pain, shortness of breath, bleeding, nausea or vomiting, chest pain, or any unexpected problems, contact your Primary Care Provider. Call [facility] [employer] [facility] ([phone]) or report to the closest Emergency Room. Call 911 if necessary. 03/20/18 0159 <Electronically signed by Kristen Ohara MD> Date Kristen Ohara MD Cosigner Signature (If Indicated): Date CC: Will Dietz MD DISCHARGE INSTRUCTION Observed: 03/20/2018 Status: F Source: [place] 1:56 AM [facility] REPOSIT[facility] Medical Records Department [address] [place] [address] Discharge Instruction 03/20/18 0155 MR#: [id number] Acct: [id number] Name: CHON BAILONOdalys Alvarenga Rep #: [id number] : 1980 37 From: Kristen Ohara MD PCP: Will Dietz MD Status: REG ER ED Disposition - Plan for ED Patient: Chief Complaint: Abd Pain Instructions: ED Abdominal Pain Unkn Cause Prescriptions: Ondansetron [Zofran Odt] 4 mg PO Q8H PRN PRN #10 tablet PRN Reason: Nausea Referrals: Will Dietz MD [Primary Care Provider] - What to do if you have Problems For any increased pain, shortness of breath, bleeding, nausea or vomiting, chest pain, or any unexpected problems, contact your Primary Care Provider. Call [facility] ([phone]) or report to the closest Emergency Room. Call 911 if necessary. 03/20/18 0156 <Electronically signed by Kristen Ohara MD> Date Kristen Ohara MD Cosigner Signature (If Indicated): Date CC: Will Dietz MD CTA CHEST W/WO Observed: 03/20/2018 Status: F Source: [place] CONTRAST 12:16 AM [facility] REPOSITORY [facility] Imaging Services [address] [place] [address] CTA Chest W/WO Contrast MR#: [id number] Acct: [id number] Name: DEBBY BAILON Rep #: [id number] : 1980 F 37 From: Dylan Quintana MD PCP: Will Dietz MD Status: REG ER Study: CTA Chest W/WO Contrast Date of Exam: 03/20/18 Exam# [id number] Ordering Dr: Kristen Ohara MD STUDY: CTA CHEST REASON FOR EXAM: Female, 37 years old. Elevated d-dimer RADIATION DOSAGE (If Supplied By Facility): CTDIvol = ( 9.73 ) mGy, DLP = ( 654.79 ) mGycm TECHNIQUE: The examination was performed with the intravenous administration of 100ml ml of Isovue 300 contrast material. Post-processing of the angiographic images was performed, with multiplanar reformation and 3D reconstruction. Individualized dose optimization techniques were used for this CT. COMPARISON: None. FINDINGS: : TRACHEA, THYROID, ESOPHAGUS: No tracheomalacia,stricture or wall thickening. Thyroid and esophagus are normal CARDIOVASCULAR SYSTEM:The thoracic aorta is normal with no aneurysm, dissection or developmental anomalies. The pulmonary trunk and the left and right pulmonary arteries and their lobar and segmental branches do not show any abnormal and persistent filling defects in them. There is therefore no evidence of pulmonary embolism. The heart is normal. There are no venous anomalies CRISTIANO AND LYMPH NODES: No hilar masses and no mediastinal, hilar, axillary or supraclavicular adenopathy LUNGS, LOW-ATTENUATION: No traction bronchiectasis, honeycombing,emphysema, lung cysts or cavitations LUNGS, HIGH ATTENUATION: No nodules/masses, ground glass opacities/consolidations or increased interstitial markings LUNGS, MOSAIC/CRAZY PAVING: Not evident PLEURA AND CHEST WALL: No plural effusions, pneumothoraces,rib fractures or any osteolytic/osteoblastic changes . The soft tissue chest wall including the breasts are normal UPPER ABDOMEN: Fatty infiltration of the liver CT/CTA Chest W/WO Contrast IMPRESSION: Normal CTA chest examination, without a demonstrated pulmonary embolism or arterial dissection. No acute findings in the lungs. Fatty infiltration of the liver Electronically Signed: Dylan Quintana MD at 1:51 EDT Tel , Service support , CC: Kristen Ohara MD; Will Dietz MD Paper Rewinder Operator: Signed CBC W/DIFF, AUTOMATED Collected: 03/19/2018 Status: F Source: NORMA 11:20 PM [facility] REPOSITORY TYPE CODE TESTS RESULT OUT OF RANGE REFERENCE UNITS LAB L100.1000 4.4-11.0 K/mm3 Normal WBC 10.8 LAB L100.1200 4.2-5.4 M/mm3 Low RBC 4.12 LAB L100.1300 12.0-15.0 g/dl Normal HGB 12.3 LAB L100.1400 37-47 % Normal HCT 37.7 LAB L100.1500 81-99 fL Normal MCV 91.5 LAB L100.1600 27.0-32.0 pg Normal MCH 29.9 LAB L100.1700 32-36 g/gl Normal MCHC 32.6 LAB L100.1810 11.6-14.6 % Normal RDW CV 14.3 LAB L100.1820 35.1-43.9 fl High RDW SD 47.5 LAB L100.1900 150-450 K/mm3 Normal PLT 203 LAB L100.2000 6.2-12.0 fl Normal MPV 10.6 LAB L100.2100 47-70 % Normal NEUT% 61.0 LAB L100.2200 19-41 % Normal LY% 24.5 LAB L100.2300 0-10 % Normal MONO% 8.3 LAB L100.2400 0-5 % High EO% 5.2 LAB L100.2500 0-1 % Normal BASO% 0.4 LAB L100.2550 0.0-0.9 % Normal IM GRAN % 0.600 Result Comment: IG% - Immature Granulocytes (promyelocytes, myelocytes and metamyelocytes) > 1% indicates that a LEFT SHIFT is Present. LAB L100.2620 2.0-7.7 X10 3/uL Normal Absolute Neut 6.6 LAB L100.2720 0.83-4.51 X10 3/ul Normal Absolute Lymph 2.64 Performed By: #### L100.0100 #### [facility] [address] [place], [place], [address] BASIC METABOLIC Collected: 03/19/2018 Status: F Source: [place] PROFILE (BMP) 11:20 PM [facility] REPOSITORY TYPE CODE TESTS RESULT OUT OF RANGE REFERENCE UNITS LAB L501.0100 74-106 mg/dL High GLU 196 Result Comment: Fasting Glucose result greater than or equal to 126 mg/dL suggests DIABETES MELLITUS per A.D.A. criteria. Please note revised GLUCOSE reference range effective 2017. LAB L501.1000 7-18 mg/dL Normal BUN 10 LAB L501.1100 0.55-1.02 mg/dL Normal CREAT,SERUM 0.94 Result Comment: The validity of the calculated GFR AND GFRAA in patients over 70 years has not been determined. Clinical correlation is essential. LAB L501.1110 >60 mL/min Normal EST GFR 72 Result Comment: Non- GFR Calc LAB L501.1115 >60 mL/min Normal EST GFR - AA 87 Result Comment: GFR Calc LAB L501.1255 ml/min Normal Estimated CRCL 65.44 LAB L501.1300 10-20 RATIO Normal BUN/CRE 10.7 LAB L501.2200 8.5-10 mg/dL Normal .1 CA 9.2 LAB L501.5300 136-14 mmol/L Normal 5 NA 137 LAB L501.5600 3.5-5. mmol/L Normal 1 K 3.8 LAB L501.5900 98-107 mmol/L Normal CL 102 LAB L501.6100 21.0-3 mmol/L Normal 2.0 CO2 27.0 LAB L501.6200 5-15 Normal GAP 8 Performed By: #### L500.2500, L501.4010 #### [facility] [address] [place], [place], [id number] TROPONIN-I Collected: 03/19/2018 Status: F Source: [place]OT 11:20 PM [facility] REPOSITORY TYPE CODE TESTS RESULT OUT OF RANGE REFERENCE UNITS LAB L501.4010 <0.045 ng/mL Normal < 0.015 TROPONIN-I Result Comment: TROPONIN-I EXPECTED VALUES <0.045 Negative 0.045 - 0.590 Consistent with Cardiac Damage > OR = 0.600 Critical Value Not every elevated troponin is indicative of OR. These values should be used with clinical judgement in examining the patient's clinical picture for diagnosis. To establish a diagnosis of OR versus myocardial injury, there must be a demonstrated rise and/or fall in the troponin values, in addition to ischemic symptoms, EKG changes, new regional wall motion abnormality, and/or angiographical evidence. PLEASE NOTE: REFERENCE RANGES EDITED 17 Performed By: #### L500.2500, L501.4010 #### [facility] [address] [place], [place], [address] D-DIMER QUANTITATIVE Collected: 03/19/2018 Status: F Source: PAT[place]OT (DVT/PE) 11:20 PM [facility] REPOSITORY TYPE CODE TESTS RESULT OUT OF RANGE REFERENCE UNITS LAB L300.8000 0.27-0.49 FEU/ug/m High alert D-DIMER 0.55 QUANT Result Comment: CRITICAL VALUE VERIFIED. CALLED TO 03/19/18 2343 Molly Jose. RESULTS READ BACK BY SAME . D-Dimer ELEVATED (>0.49): Additional studies and clinical assessments are indicated to conclude diagnosis of: Deep Vein Thrombosis (DVT) or Pulmonary Embolism (PE) Performed By: #### L300.8000 #### [facility] [address] [place], [address] ,SERUM,HCG QUALI. Collected: Status: F Source: PATRIOT 03/19/2018 11:20 PM [facility] REPOSITORY TYPE CODE TESTS RESULT OUT OF REFERENCE UNITS RANGE LAB L700.6700 =>Qualitative mIU/mL Normal HCG Qual < 1 triggr LAB L700.7000 0-9 Nonpreg Negative Normal HCGSQUAL NEGATIVE Performed By: #### L700.6800 #### [facility] [address] [place], [address] URINALYSIS, COMPLETE Collected: 03/19/2018 Status: F Source: PAT[place]OT 10:55 PM [facility] REPOSITORY Order Comment: How was Urine Obtained? CLEAN CATCH TYPE CODE TESTS RESULT OUT OF RANGE REFERENCE UNITS LAB L400.3000 Yellow COLOR Normal Yellow LAB L400.3050 Clear Normal CLARITY Sl. Cloudy LAB L400.3200 Normal mg/dl High GLUCOSE, UR 1000 LAB L400.3300 Negative mg/dL Normal BILIRUBIN URINE Negative LAB L400.3400 Negative mg/dl Normal KETONE UR Negative LAB L400.3465 1.002-1.030 Normal SP.GR. DIPSTX 1.015 LAB L400.3550 5.0 - 8.0 pH UR Normal 6.5 LAB L400.3600 Negative mg/dl High PROT 30 DIPSTX LAB L400.3700 Normal mg/dl Normal UROBILI Normal LAB L400.3750 Negative Normal NITRITE UR Negative LAB L400.3780 Negative /ul High OCCULT BLOOD-UR 250 LAB L400.3800 Negative /ul LEUK Normal ESTERASE Negative LAB L400.4050 0-5 /hpf WBC 0 Normal SEEN LAB L400.4100 0-5 /hpf Normal RBC-UA 50-100 SEEN LAB L400.4150 5-10 /hpf SQUAM Normal EPI 0-5 SEEN LAB L400.4300 None Seen /hpf 0 Normal BACTERIA SEEN LAB L400.4350 <or=2+ /hpf 0 Normal MUCUS, URINE SEEN Performed By: #### L400.0001 #### [facility] [address] [place], [address] CHEST 1 VIEW Observed: 03/19/2018 Status: F Source: [place]MA (PORTABLE) 10:52 PM [facility]IT[facility] Imaging Services [address] [place] [address] Chest 1 View (Portable) MR#: [id number] Acct: [id number] Name: DEBBY BAILON Rep #: [id number] : 1980 F 37 From: Jessie Patel MD PCP: Will Dietz MD Status: REG ER Study: Chest 1 View (Portable) Date of Exam: 03/19/18 Exam# [id number] Ordering Dr: Kristen Ohara MD STUDY: X-RAY CHEST REASON FOR EXAM: Female, 37 years old. Chest pain. TECHNIQUE: Portable chest. COMPARISON: 02/16/2018. FINDINGS: The lungs are clear and expanded. There is no demonstrated pleural abnormality. Normal size heart. Normal mediastinum and cristiano. Normal visualized pulmonary arteries. Normal visualized aortic arch and descending thoracic aorta. Normal visualized thoracic spine. Normal visualized ribs, clavicles, and shoulders. There is no demonstrated abnormality of the visualized soft tissue structures of the upper abdomen. RAD/Chest 1 View (Portable) IMPRESSION: Normal x-ray examination of the chest. Electronically Signed: Jessie Patel MD at 23:07 EDT Tel , Service support , CC: Kristen Ohara MD; Will Dietz MD Paper Rewinder Operator: Signed ABDOMEN/PELVIS WITHOUT Observed: 03/19/2018 Status: F Source: [place]MA CONT 10:52 PM [facility] REPOSITORY [facility] Imaging Services [address] [place] [address] Abdomen/Pelvis without Cont MR#: [id number] Acct: [id number] Name: DEBBY BAILON Rep #: [id number] : 1980 F 37 From: Dylan Quintana MD PCP: Will Dietz MD Status: REG ER Study: Abdomen/Pelvis without Cont Date of Exam: 03/19/18 Exam# [id number] Ordering Dr: Kristen Ohara MD STUDY: CT ABDOMEN AND PELVIS WITHOUT CONTRAST REASON FOR EXAM: Female, 37 years old. Urinary tract infection and back pain RADIATION DOSAGE (If Supplied By Facility): CTDIvol = ( 20.04 ) mGy, DLP = ( 1066.21 ) mGycm TECHNIQUE: Transaxial images were obtained from the dome of the diaphragm to the symphysis pubis without oral contrast, and without intravenous contrast. Sagittal and coronal images were reconstructed. Individualized dose optimization techniques were used for this CT. COMPARISON: None. FINDINGS: The lung bases are clear. There is fatty infiltration of the liver. No dilated intrahepatic biliary radicles. Previous cholecystectomy The spleen is normal. The pancreas is normal. Both adrenals are normal. There is a right-sided hydroureteronephrosis with no demonstrable obstructing calculus. There is a 2.7 cm right renal cyst. The left kidney is normal The stomach is normal. There is no bowel distention, acute appendicitis or diverticulitis. No constricting lesions are seen in large bowel. There is evidence of ventral hernia repair with a deep wound in the umbilical region. There is no ascites or any free intraperitoneal air. No indication of epiploic appendagitis The vascular structures in the retroperitoneum are normal. There is no retrocrural, retroperitoneal or mesenteric adenopathy. Deroofing at L3, L4, L5 and S1. There is a small 7.8 mm diverticulum from the left margin of the urinary bladder. The uterus is normal--. There is no inguinal or pelvic adenopathy. There is no inguinal hernia. . CT/Abdomen/Pelvis without Cont IMPRESSION: A right sided hydroureteronephrosis with no demonstrable obstruction calculus in the right ureter. A tiny 7.8 mm diverticulum in the left margin of the urinary bladder. Previous surgery (bilateral laminectomies) extending from L3 to S1 Electronically Signed: Dylan Quintana MD at 0:11 EDT Tel , Service support , CC: Kristen Ohara MD; Will Dietz MD Paper Rewinder Operator: Signed NM CARDIAC PERF Observed: 03/15/2018 Status: F Source: [place] STRESS/PHARM 11:[address] [facility] REPOSITORY * * *Final Report* * * DATE OF EXAM: Mar 15 2018 11:38AM WON 0006 - NM CARDIAC PERF STRESS/PHARM / PROCEDURE REASON: pharm * * * * Physician Interpretation * * * * PATIENT: Name: DEBBY BAILON Age: 37 years Gender: F CONCLUSIONS: 1. SPECT Perfusion Study: Normal. 2. There is no scintigraphic evidence for inducible ischemia. 3. No evidence of scarred myocardium. 4. Functional capacity N/A (pharmacological). 5. Left ventricle is normal in size. The left ventricle systolic function is normal. 6. Right ventricle is normal in size. The right ventricle systolic function is normal. 7. This is a low risk scan. Gated Stress FBP LVEF % 82 Prior Study Comparison No prior nuclear cardiology exam available for comparison. Nuclear Med Report:1-Day Tc-Tetrofosmin Gated SPECT Myocardial Perfusion with Regadenoson Stress: Myocardial perfusion imaging was performed at rest 30 minutes following the IV injection of Tc-99m tetrofosmin. The patient received 0.4 mg of regadenoson, via rapid IV push, immediately followed by Tc-99m tetrofosmin IV. Gated post stress tomographic imaging was performed 30 to 60 minutes later. See administered doses below. [facility] Date of service: 03/15/2018 7:22:30 AM Ordering Physician: Requesting Physician: WILL DIETZ Indication: Arrhythmia, Assessment for suspected CAD and CP - ECG uniterpretable OR unable to exercise. Interpreting physician: Joesph Calloway MD Patient History: History of arrhythmia, diabetes mellitus, hypertension and dyslipidemia. Medications currently taking are statins, ACEI and B-suki. Height: 154.94 cm BSA: 2.13 m? Weight: 105.69 kg BMI: 44.0 kg/m? Imaging Protocol Pt was ReScanned: Yes. Exam Type: Rest Stress Radiopharm: Tc-99m Tetrofosmin Tc-99m Tetrofosmin Dosage(mCi): 16 44.1 Stress Agent: Regadenoson 0.4mg Supply provided from [facility] Resting Heart Rate: 63 bpm Resting Blood Press: 114/70 mmHg Image Quality The overall study imaging quality was deemed to be good. FINDINGS: Left Ventricle Wall Motion: Stress IR:3D - All scored segments are normal. Rest IR:3D - Gated Stress FBP - Reversibility - Stress IR:3D Stress IR:3D Gated Stress FBP LVEF: 82 % ED Volume: 72 ml ES Volume: 13 ml TID: 0.91 Perfusion Findings Stress IR:3D - Summed Score=0 All scored segments reflect normal perfusion. Rest IR:3D - Summed Score=0 All scored segments reflect normal perfusion. Stress IR:3D Rest IR:3D Summed Score=0 Summed Score=0 LEFT VENTRICLE The left ventricle is normal in size. Left ventricular systolic function is normal. Right Ventricle The right ventricle is normal in size. Right ventricle systolic function is normal. Stress Test Findings: There is no scintigraphic evidence for inducible ischemia. There is no evidence of scarring. The stress test was terminated due to the following: End of Protocol. Peak HR 108 bpm. (59 % MPHR) Peak BP 126 mmHg/84 mmHg Patient experienced no symptoms during stress. Stress ECG normal ST segment response. Stress complications: none. The left ventricular cavity size is unchanged with stress. Final Paper Rewinder Operator: RADHA Transcribe Date/Time: Mar 15 2018 7:22A Dictated by : JOESPH CALLOWAY MD This examination was interpreted and the report reviewed and electronically signed by: JOESPH CALLOWAY MD on Mar 15 2018 12:37PM EST [id number] PROGRESS Observed: 03/15/2018 Status: COMPLETED Source: [place] 10:[address] [facility] REPOSITORY HNO ID: [id number] Author: Renata Lubin Service: (none) Author Type: (none) Type: Progress Notes Filed: 03/15/2018 10:24 AM Note Text: RADIOLOGY SERVICE PROGRESS NOTE SERVICE DATE: 03/15/2018 SERVICE TIME: 10:23 AM PATIENT IDENTITY VERIFICATION COMPLETED USING TWO (2) METHODS: Patient confirmed name and Date of verbally. PATIENT GENDER DATA: .female : No ALLERGIES: Reviewed and unchanged MEDICATIONS REVIEWED: Yes PATIENT RELEVANT IMPLANT DATA REVIEWED: Not Applicable CREATININE: Creatinine Date Value Ref Range Status 02/13/2018 0.70 0.58 - 0.96 mg/dL Final 10/10/2017 0.73 0.58 - 0.96 mg/dL Final 06/16/2017 0.75 0.58 - 0.96 mg/dL Final eGFR-All Other Races Date Value Ref Range Status 02/13/2018 >60 . Final Comment: eGFR (Estimated GFR) Units of measure: mL/min/1.73 meters squared eGFR is derived from the reexpressed MDRD Study equation using the following parameters: serum creatinine, age, gender and race. The creatinine assay has been calibrated to be traceable to IDMS. An eGFR <60 mL/min/1.73m2 for >3 months is consistent with chronic kidney disease. Refer to KDOQI guidelines for clinical interpretation. In patients with unstable renal function, e.g. those with acute kidney injury, the eGFR may not accurately reflect actual GFR. eGFR- Date Value Ref Range Status 02/13/2018 >60 Final P.O.C.T. RESULTS: N/A March 15, [address] PERFORMED: No IV SITE: Ambulatory: A peripheral IV was started in the Right with a Angio cath: 22 gauge. POST EXAM PIV STATUS: Discontinued PROCEDURE TYPE: NM Stress: 16mCi [id number] was administered IV for Rest Imaging at 08:15 by sima Rolon. 44.1 mCi Tc99m- Myoview was administered IV for Stress Imaging at 09:50 by sima Rolon. ADMINISTRATION TIME: PATIENT DISCHARGED TO: Ambulatory patient, left AR department area. A Diagnostic radioactive procedure has taken place, with no further precautions necessary other than routine body substance precautions. More information regarding radiation safety can be found using this link: [email or web address] SIGNATURE: Renata Lubin PATIENT NAME: Debby Bailon DATE: March 15, 2018 TIME: 10:23 AM PAGER/CONTACT #: PROGRESS Observed: 03/15/2018 Status: COMPLETED Source: [place] 9:[address] [facility] REPOSITORY HNO ID: [id number] Author: Isis Alaniz (Rcep) Service: (none) Author Type: Production Worker Type: Progress Notes Filed: 03/15/2018 9:59 AM Note Text: Preliminary report complete; results under imaging tab. DAGO Wallace CNOV Observed: 03/15/2018 Status: COMPLETED Source: [place] 9:[address] [facility] REPOSITORY Office Visit (CAWSTR) DEBBY BAILON ([id number]) 1980 F Date Time Provider Department 03/15/18 9:00 AM RAMANA ALANIZ) BAHMANTR During your visit today, we recorded the following information about you: DAGO Wallace 03/15/2018 9:59 AM Signed Preliminary report complete; results under imaging tab. DAGO Wallace Referring Provider: WILL DIETZ [[id number]] Allergies As of Date: 03/15/2018 Noted Allergy Reaction MUSHROOM 06/10/2016 10 - Anaphylaxis PEANUTS 06/10/2016 10 - Anaphylaxis MRI CONTRAST (GADOLINIUM-CONTAINI*01/03/2017 8 - GI Upset Date Reviewed: 03/07/2018 Reviewed by: Myles Higgins - Fully Assessed Visit Diagnosis:Dyspnea on exertion [R06.09] Order(s):NM CARDIAC PERF STRESS/PHARM [2305642] Order #: [id number] Prescriptions as of 03/15/2018 Sig: PREGABALIN 25 MG CAPSULE Take 1 capsule by mouth once * ATORVASTATIN 10 MG TABLET Take 1 tablet by mouth once d* GLIMEPIRIDE 4 MG TABLET Take 1 tablet by mouth daily * DULOXETINE 60 MG CAPSULE,SHERRY* Take 1 capsule by mouth once * LISINOPRIL 2.5 MG TABLET Take 1 tablet by mouth once d* METFORMIN ER 500 MG TABLET,EX* Take 2 tablets by mouth twice* PROPRANOLOL 10 MG TABLET Take 1 tablet by mouth twice * FLUTICASONE 50 MCG/ACTUATION * Use 2 Sprays in each nostril * LORATADINE 10 MG TABLET Take 1 tablet by mouth once d* PSEUDOEPHEDRINE 30 MG CAPSULE* Take 1-2 tablets by mouth sarah* ZOLPIDEM 10 MG TABLET Take 1 tablet by mouth as nee* BLOOD-GLUCOSE METER Dispense 1 meter kit. Dx: Ot* LANCETS Test blood sugar 2 times/day* BLOOD SUGAR DIAGNOSTIC STRIPS Test blood sugar(s) 2 times d* COMPOUNDED PRESCRIPTION Stoma catheter tube. DX: Qo5* POLYETHYLENE GLYCOL 3350 17 G* Take 17 g by mouth once daily. OXYBUTYNIN CHLORIDE ER 10 MG * Take 1 tablet by mouth once d* HYDROXYZINE PAMOATE 25 MG CAP* Take 1 capsule by mouth three* Problem List As Of Date 03/15/2018 Noted Resolved Threatened , antepartum [O20.0] INVALID FOR*04/07/2011 Supervision of normal first [Z34.00] INVALID FOR*04/07/2011 Cyst of ovary [N83.209] INVALID FOR* Priority: C Depressive disorder, not elsewhere classified [*INVALID FOR*01/06/2016 Priority: A More... Anxiety [F41.9] INVALID FOR* Priority: A More... Dysthymic disorder [F34.1] Priority: A More... Panic attacks [F41.0] Priority: A Neck pain [M54.2] INVALID FOR* Priority: M Cervical radiculopathy [M54.12] INVALID FOR* Priority: M Weakness of both upper extremities [R29.898] INVALID FOR* Priority: M More... Muscle weakness of lower extremity [M62.81] INVALID FOR* Priority: M More... 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 Morbid obesity ([facility]) [E66.01] INVALID FOR* Priority: B Chronic pain [G89.29] INVALID FOR* Priority: M Neurogenic bladder [N31.9] INVALID FOR* Priority: B Hydronephrosis, right [N13.30] INVALID FOR* Priority: C History of kidney stones [Z87.442] INVALID FOR* Priority: C Spina bifida ([facility]) [Q05.9] INVALID FOR* Priority: B More... Neurogenic bowel [K59.2] INVALID FOR* Priority: B Primary insomnia [F51.01] INVALID FOR* Priority: A Type 2 diabetes mellitus with proteinuria ([facility])*INVALID FOR* Priority: A Pyelonephritis [N12] INVALID FOR* Diabetic eye exam ([facility]) [Z01.00, E11.9] INVALID FOR* Priority: A More... Migraine without aura and without status migrai*INVALID FOR*02/28/2018 Priority: A Type 2 diabetes mellitus with albuminuria ([facility])*INVALID FOR* Priority: A Well adult exam [Z00.00] INVALID FOR* Priority: E More... Paroxysmal SVT (supraventricular tachycardia) (*INVALID FOR* Priority: A More... DM (diabetes mellitus), secondary, uncontrolled*INVALID FOR* Priority: A S/P hernia repair [Z98.890, Z87.19] INVALID FOR* Thyroid cyst [E04.1] INVALID FOR* Priority: A More... Migraine without aura and without status migrai*INVALID FOR* Priority: A Medicare annual wellness visit, subsequent [Z00*INVALID FOR* Priority: E More... Mixed hyperlipidemia [E78.2] INVALID FOR* Priority: A History of recurrent UTIs [Z87.440] INVALID FOR* Priority: C Encounter Status:Closed by Isis LEROY on 03/15/18 CNNURSE Observed: 03/15/2018 Status: COMPLETED Source: [place] 9:[address] [facility] REPOSITORY Nurse Visit (CAWSTR) DEBBY BAILON ([id number]) 1980 F Date Time Provider Department 03/15/18 9:00 AM NURSE CARD ADMIN [facility] WSTR CAWSTR During your visit today, we recorded the following information about you: Marycruz Leroy RN 03/15/2018 11:00 AM Signed lexiscan 0.4mg/5ml given over 10 second IV push. Lot number [id number], exp date 03-07-2021. Patient tolerated injection well. Marycruz Leroy RN Referring Provider: WILL DIETZ [[id number]] Allergies As of Date: 03/15/2018 Noted Allergy Reaction MUSHROOM 06/10/2016 10 - Anaphylaxis PEANUTS 06/10/2016 10 - Anaphylaxis MRI CONTRAST (GADOLINIUM-CONTAINI*01/03/2017 8 - GI Upset Date Reviewed: 03/07/2018 Reviewed by: Myles Higgins - Fully Assessed Primary Visit Diagnosis:Mixed hyperlipidemia [E78.2] Other Visit Diagnosis:Paroxysmal SVT (supraventricular tachycardia) ([facility]) [I47.1] Prescriptions as of 03/15/2018 Sig: PREGABALIN 25 MG CAPSULE Take 1 capsule by mouth once * ATORVASTATIN 10 MG TABLET Take 1 tablet by mouth once d* GLIMEPIRIDE 4 MG TABLET Take 1 tablet by mouth daily * DULOXETINE 60 MG CAPSULE,SHERRY* Take 1 capsule by mouth once * LISINOPRIL 2.5 MG TABLET Take 1 tablet by mouth once d* METFORMIN ER 500 MG TABLET,EX* Take 2 tablets by mouth twice* PROPRANOLOL 10 MG TABLET Take 1 tablet by mouth twice * FLUTICASONE 50 MCG/ACTUATION * Use 2 Sprays in each nostril * LORATADINE 10 MG TABLET Take 1 tablet by mouth once d* PSEUDOEPHEDRINE 30 MG CAPSULE* Take 1-2 tablets by mouth sarah* ZOLPIDEM 10 MG TABLET Take 1 tablet by mouth as nee* BLOOD-GLUCOSE METER Dispense 1 meter kit. Dx: Ot* LANCETS Test blood sugar 2 times/day* BLOOD SUGAR DIAGNOSTIC STRIPS Test blood sugar(s) 2 times d* COMPOUNDED PRESCRIPTION Stoma catheter tube. DX: Qo5* POLYETHYLENE GLYCOL 3350 17 G* Take 17 g by mouth once daily. OXYBUTYNIN CHLORIDE ER 10 MG * Take 1 tablet by mouth once d* HYDROXYZINE PAMOATE 25 MG CAP* Take 1 capsule by mouth three* Problem List As Of Date 03/15/2018 Noted Resolved Threatened , antepartum [O20.0] INVALID FOR*04/07/2011 Supervision of normal first [Z34.00] INVALID FOR*04/07/2011 Cyst of ovary [N83.209] INVALID FOR* Priority: C Depressive disorder, not elsewhere classified [*INVALID FOR*01/06/2016 Priority: A More... Anxiety [F41.9] INVALID FOR* Priority: A More... Dysthymic disorder [F34.1] Priority: A More... Panic attacks [F41.0] Priority: A Neck pain [M54.2] INVALID FOR* Priority: M Cervical radiculopathy [M54.12] INVALID FOR* Priority: M Weakness of both upper extremities [R29.898] INVALID FOR* Priority: M More... Muscle weakness of lower extremity [M62.81] INVALID FOR* Priority: M More... 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 Morbid obesity (HCC) [E66.01] INVALID FOR* Priority: B Chronic pain [G89.29] INVALID FOR* Priority: M Neurogenic bladder [N31.9] INVALID FOR* Priority: B Hydronephrosis, right [N13.30] INVALID FOR* Priority: C History of kidney stones [Z87.442] INVALID FOR* Priority: C Spina bifida (HCC) [Q05.9] INVALID FOR* Priority: B More... Neurogenic bowel [K59.2] INVALID FOR* Priority: B Primary insomnia [F51.01] INVALID FOR* Priority: A 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)*INVALID FOR* Priority: A Pyelonephritis [N12] INVALID FOR* Diabetic eye exam (HCC) [Z01.00, E11.9] INVALID FOR* Priority: A More... Migraine without aura and without status migrai*INVALID FOR*02/28/2018 Priority: A Type 2 diabetes mellitus with albuminuria ([facility])*INVALID FOR* Priority: A Well adult exam [Z00.00] INVALID FOR* Priority: E More... Paroxysmal SVT (supraventricular tachycardia) (*INVALID FOR* Priority: A More... DM (diabetes mellitus), secondary, uncontrolled*INVALID FOR* Priority: A S/P hernia repair [Z98.890, Z87.19] INVALID FOR* Thyroid cyst [E04.1] INVALID FOR* Priority: A More... Migraine without aura and without status migrai*INVALID FOR* Priority: A Medicare annual wellness visit, subsequent [Z00*INVALID FOR* Priority: E More... Mixed hyperlipidemia [E78.2] INVALID FOR* Priority: A History of recurrent UTIs [Z87.440] INVALID FOR* Priority: C Visit Notes: >> Marycruz Leroy RN Gabby Mar 15, 2018 11:00 AM Status: Signed lexiscan 0.4mg/5ml given over 10 second IV push. Lot number [id number], exp date 03-07-2021. Patient tolerated injection well. Marycruz Leroy RN Encounter Status:Closed by MARYCRUZ LEROY RN on 03/16/18 EMERGENCY DEPARTMENT Observed: 03/14/2018 Status: F Source: [place] SUMMARY 11:19 PM [facility] REPOSITORY [facility] Medical Records Department [address] [place] [address] Emergency Department Summary 03/14/18 1518 MR#: [id number] Acct: [id number] Name: DEBBY BAILON Rep #: [id number] : 1980 37 From: Oni Dunlap MD PCP: Will Dietz MD Status: DEP ER - ER Visit Summary Date of Service: 03/14/18 Chief Complaint: Dysuria History of Present Illness: The patient is a [address] Dietz and her urologist is Dr. Sears in [place]. She has a history of spina bifida with neurogenic bladder. She reports that she self caths 3 times a day. States she is not happy for the past 2 days because she is having frequent urination with small volumes. She also complains of dysuria and a small amount of hematuria. She reports that she has a sharp, stabbing right flank pain and is 10 out of 10 in severity. Is worsened by nothing and relieved by nothing. Her last menstrual period was 2 weeks ago. No vaginal bleeding or discharge. Patient denies any fever or chills. She reports is been nausea and vomited 3-4 times since 8:00 this morning. No blood or emesis. Physical Examination: Vitals: Stable. Afebrile. General: Well-nourished and well-developed. Head: Normocephalic atraumatic. Neck: Supple, no lymphadenopathy. No JVD. Nontender. Cardiovascular: Regular rate and rhythm. No murmurs. Respiratory: No respiratory distress. Clear to auscultation bilaterally. Abdominal: Soft, mild diffuse tenderness palpation, nondistended, normal bowel sounds. No guarding, rebound, or peritoneal signs. Back: Moderate right CVA tenderness. Extremities: Nontender, no edema. Skin: Normal color, no rash. Neurologic: Alert and oriented 3. Cranial nerves II through XII are intact. Normal strength and sensation. Psych: Normal affect. Test Results: CBC is marked for hematocrit of 36.9 immature granulocytes 1.1%. Chem-7 is marked for sodium 133 and glucose 365. UA shows leukocytes, 10-25 white blood cells, 1+ bacteria, and 3+ mucus. test was negative. Emergency Department Course and Treatment: This is the patient's 19th visit to this emergency department this year. She had an IV placed and was given Toradol and Zofran IV. Patient's recent urine cultures were reviewed. The most recent one in December was mixed gram-positive. In January 2017 it was MSSA. In December 2016 it was Enterobacter that was sensitive to fluoroquinolones. She was given a dose of Cipro IV and her urine was sent for culture. Treatment Plan: Patient will be discharged with Cipro and Zofran. Instructed to follow-up with her primary care physician in 3-5 days for another exam. Return to the emergency department for any worsening symptoms. Disposition: To home in improved and stable condition. Impression: 1. UTI. 2. Hyperglycemia with emi-xlmtlct-tskkhtmom diabetes mellitus. 3. Spina bifida with neurogenic bladder. This note was generated with [employer]jectation software. It may contain incorrect words, spelling, and punctuation that were not noted in review of the chart prior to signing ED Disposition - Plan for ED Patient: Chief Complaint: Complaint Instructions: ED UTI Cystitis Female Prescriptions: Ondansetron [Zofran Odt] 4 mg PO Q8H PRN PRN #10 tablet PRN Reason: Nausea Ciprofloxacin [Cipro] 500 mg PO BID #14 tablet Referrals: Will Dietz MD [Primary Care Provider] - 3-5 Days What to do if you have Problems For any increased pain, shortness of breath, bleeding, nausea or vomiting, chest pain, or any unexpected problems, contact your Primary Care Provider. Call [facility] ([phone]) or report to the closest Emergency Room. Call 911 if necessary. 03/14/18 [id number] <Electronically signed by Oni Dunlap MD> Date Oni Dunlap MD Cosigner Signature (If Indicated): Date CC: Will Dietz MD CBC W/DIFF, AUTOMATED Collected: 03/14/2018 Status: F Source: [place] 3:30 PM [facility] REPOSITORY TYPE CODE TESTS RESULT OUT OF RANGE REFERENCE UNITS LAB L100.1000 4.4-11.0 K/mm3 Normal WBC 10.6 LAB L100.1200 4.2-5.4 M/mm3 Low RBC 4.00 LAB L100.1300 12.0-15.0 g/dl Normal HGB 12.2 LAB L100.1400 37-47 % Low HCT 36.9 LAB L100.1500 81-99 fL Normal MCV 92.3 LAB L100.1600 27.0-32.0 pg Normal MCH 30.5 LAB L100.1700 32-36 g/gl Normal MCHC 33.1 LAB L100.1810 11.6-14.6 % Normal RDW CV 14.0 LAB L100.1820 35.1-43.9 fl High RDW SD 46.4 LAB L100.1900 150-450 K/mm3 Normal PLT 187 LAB L100.2000 6.2-12.0 fl Normal MPV 10.8 LAB L100.2100 47-70 % Normal NEUT% 66.2 LAB L100.2200 19-41 % Normal LY% 20.5 LAB L100.2300 0-10 % Normal MONO% 9.0 LAB L100.2400 0-5 % Normal EO% 2.7 LAB L100.2500 0-1 % Normal BASO% 0.5 LAB L100.2550 0.0-0.9 % High IM GRAN % 1.100 Result Comment: IG% - Immature Granulocytes (promyelocytes, myelocytes and metamyelocytes) > 1% indicates that a LEFT SHIFT is Present. LAB L100.2620 2.0-7.7 X10 3/uL Normal Absolute Neut 7.0 LAB L100.2720 0.83-4.51 X10 3/ul Normal Absolute Lymph 2.17 Performed By: #### L100.0100 #### [facility] [place], [address] BASIC METABOLIC Collected: 03/14/2018 Status: F Source: [place]MA PROFILE (BMP) 3:30 PM [facility] REPOSITORY TYPE CODE TESTS RESULT OUT OF RANGE REFERENCE UNITS LAB L501.0100 74-106 mg/dL High GLU 365 Result Comment: Glucose result greater than or equal to 200 mg/dL suggests DIABETES MELLITUS per A.D.A. criteria. Please note revised GLUCOSE reference range effective 2017. LAB L501.1000 7-18 mg/dL Normal BUN 9 LAB L501.1100 0.55-1.02 mg/dL Normal CREAT,SERUM 1.02 Result Comment: The validity of the calculated GFR AND GFRAA in patients over 70 years has not been determined. Clinical correlation is essential. LAB L501.1110 >60 mL/min Normal EST GFR 65 Result Comment: Non- GFR Calc LAB L501.1115 >60 mL/min Normal EST GFR - AA 79 Result Comment: GFR Calc LAB L501.1255 ml/min Normal Estimated CRCL 60.31 LAB L501.1300 10-20 RATIO Low BUN/CRE 8.8 LAB L501.2200 8.5-10 mg/dL Normal .1 CA 8.8 LAB L501.5300 136-14 mmol/L Low 5 NA 133 LAB L501.5600 3.5-5. mmol/L Normal 1 K 4.0 LAB L501.5900 98-107 mmol/L Normal CL 101 LAB L501.6100 21.0-3 mmol/L Normal 2.0 CO2 27.0 LAB L501.6200 5-15 Normal GAP 5 Performed By: #### L500.2500 #### [facility] [address] [place], [place], [id number] ,SERUM,HCG QUALI. Collected: Status: F Source: PATRIOT 03/14/2018 3:30 PM [facility] REPOSITORY TYPE CODE TESTS RESULT OUT OF REFERENCE UNITS RANGE LAB L700.7000 0-9 Nonpreg Negative Normal HCGSQUAL NEGATIVE LAB L700.6700 =>Qualitative mIU/mL Normal HCG Qual < 1 triggr Performed By: #### L700.6800 #### [facility] [address] [place], [place], [id number] URINALYSIS, COMPLETE Collected: 03/14/2018 Status: F Source: [place]OT 3:25 PM [facility] REPOSITORY Order Comment: Order Date: 03/14/18 How was Urine Obtained? CLEAN CATCH TYPE CODE TESTS RESULT OUT OF RANGE REFERENCE UNITS LAB L400.3000 Yellow COLOR Normal Yellow LAB L400.3050 Clear Normal CLARITY Cloudy LAB L400.3200 Normal mg/dl High GLUCOSE, UR 1000 LAB L400.3300 Negative mg/dL Normal BILIRUBIN URINE Negative LAB L400.3400 Negative mg/dl Normal KETONE UR Negative LAB L400.3465 1.002-1.030 Normal SP.GR. DIPSTX 1.015 LAB L400.3550 5.0 - 8.0 pH UR Normal 6.0 LAB L400.3600 Negative mg/dl High PROT 15 DIPSTX LAB L400.3700 Normal mg/dl Normal UROBILI Normal LAB L400.3750 Negative Normal NITRITE UR Negative LAB L400.3780 Negative /ul Normal OCCULT BLOOD-UR Negative LAB L400.3800 Negative /ul High LEUK ESTERASE 100 LAB L400.4050 0-5 /hpf WBC Normal 10-25 SEEN LAB L400.4100 0-5 /hpf 0 Normal RBC-UA SEEN LAB L400.4150 5-10 /hpf SQUAM Normal EPI 0-5 SEEN LAB L400.4300 None Seen /hpf 1+ Normal BACTERIA LAB L400.4350 <or=2+ /hpf 3+ Normal MUCUS, URINE Performed By: #### L400.0001 #### [facility] [address] [place], [place], [id number] Observed: 03/14/2018 Status: F Source: [place]MA CULTURE, URINE 3:25 PM [facility] REPOSITORY Order Date: 03/14/18 Urine Culture ORGANISM 1: Mixed Gram Pos AND Gram Neg Org [place] Count 25,000-50,000 MIX CULTURE Mixed contaminants. Submit a new specimen if indicated. Performed By: #### M100.0650 #### [facility] [address] [place], [place], [id number] CNOV Observed: 03/07/2018 Status: COMPLETED Source: [place] 2:[address] [facility] REPOSITORY Office Visit (FAMPWS) DEBBY BAILON ([id number]) 1980 F Date Time Provider Department 03/07/18 2:20 PM ROMEL HIGGINS) ENRIQUE During your visit today, we recorded the following information about you: Temperature Pulse Respiration Blood pressure 97.7 degrees 84/minute 14/minute 112/84 NETTA HIGGINS PA-C 03/07/2018 3:03 PM Signed Chief Complaint Patient presents with: Recheck: patient is here for ER follow up; numbness in feet HPI Debby Bailon is a 37 year old female who presents here today for ER Follow Up.. Patient with hx of spina bifida and lipomeningocele who has noted worsening lower extremity weakness and n/t Had a fall on Monday and went to ER for evaluation. Was sent home- x-ray showed Degenerative changes She then went to ER again late last night early this morning after another fall. Reports that she hit her head. CT of head and neck shows no intracranial process Still has headache. Some nausea. Has had memory difficulties and confusion since last night. Has had worsening bladder incontinence. Has not had to self cath recently. No loss of bowel except for during Physical Therapy last week. No issues since She recently was seen by PCP and had similar complaints. Has tried Physical Therapy but sometimes that makes her symptoms worse Last MRI of L spine was 2 years ago- per patient says the lipome was starting to return. She has appointment with her neuro on 03/16/18 They have been working on getting her evaluated by neurosurgeon She states she has not heard about when her appointment with surgeon is. She has not tried calling herself. Past medical history, appointments, medications, allergies reviewed. Previous Medical History PAST MEDICAL HISTORY Diagnosis Date - Abnormal sensation of left upper and lower extremity 08/07/2013 - Anxiety - Arthritis started age 19 - Cervical radiculopathy 05/02/2013 - Chronic pain 02/12/2015 - Cyst of ovary 11/28/2011 - DJD (degenerative joint disease), thoracic - DM (diabetes mellitus), secondary, uncontrolled, w/renal complications (HCC) 12/05/2017 - Dysthymic disorder Depression (non-psychotic), sees BRIM SHAPER at [facility]. 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 Seeing Dr. Gregg - Numbness and tingling of left arm and leg 08/07/2013 - Panic attacks - Paroxysmal SVT (supraventricular tachycardia) ([facility]) 07/03/2017 Per 48 Hr event monitor 06/30/2017 - Primary insomnia 02/17/2016 - Spina bifida ([facility]) 01/06/2016 - Thyroid cyst 01/01/2018 Complex right sided cysts. US 12/2017, biopsy per Dr. Josue 01/23/2018 benign. Repeat US in a year. - Type 2 diabetes mellitus with albuminuria ([facility]) 10/18/2016 - Type 2 diabetes mellitus with proteinuria ([facility]) 02/19/2016 - Ulcer of left foot ([facility]) 02/21/2017 - Ventral hernia without obstruction or gangrene - Weakness of both upper extremities 08/07/2013 Chronic Previous Surgical History PAST SURGICAL HISTORY Procedure Laterality Date - 2D ECHO (EXEP) 06/28/2017 EF=65%. nl - DANDC, DIAG AND/OR THERAPEUTIC Dilation AND curettage - PAST SURGICAL HISTORY OF cholecystectomy - PAST SURGICAL HISTORY OF 09/2012 back surgery x2 - PAST SURGICAL HISTORY OF Left 02/2014 foot x2 - PAST SURGICAL HISTORY OF 07/2015 Knapp stoma - REPAIR UMBILICAL HERNIA 12/11/2017 - STRESS TEST 07/18/2017 normal Family History FAMILY HISTORY Problem Relation Age of Onset - Arthritis Mother - Diabetes Mother - Heart Mother - Hypertension Mother - Lipids Mother - Stroke Mother - Thyroid Mother - Cancer Father Skin - Cancer Maternal Grandmother LIVER CANCER - Cancer Maternal Uncle Great Uncle - Cancer Maternal Uncle Great Uncle Patient Allergies ALLERGIES Allergen Reactions - Mushroom Anaphylaxis - Peanuts Anaphylaxis - Mri Contrast [Gadol* GI Upset Current Medications Current Outpatient Prescriptions on File Prior to Visit: pregabalin (LYRICA) 25 mg capsule Take 1 capsule by mouth once daily. Per Neurology Dr. Calix atorvastatin (LIPITOR) 10 mg tablet Take 1 tablet by mouth once daily. glimepiride (AMARYL) 4 mg tablet Take 1 tablet by mouth daily with breakfast. DULoxetine (CYMBALTA) 60 mg capsule Take 1 capsule by mouth once daily. lisinopril 2.5 mg tablet Take 1 tablet by mouth once daily. metFORMIN ER (GLUCOPHAGE XR) 500 mg 24 hr tablet Take 2 tablets by mouth twice daily. propranolol (INDERAL) 10 mg tablet Take 1 tablet by mouth twice daily. fluticasone (FLONASE) 50 mcg/actuation nasal spray Use 2 Sprays in each nostril once daily. Rinse mouth after use. loratadine (CLARITIN) 10 mg tablet Take 1 tablet by mouth once daily. zolpidem (AMBIEN) 10 mg tab Take 1 tablet by mouth as needed. Blood-Glucose Meter (ACCU-CHEK ANISH) [facility] [place] 1 meter kit. Dx: Other DM Code E13.29 Lancets (ACCU-CHEK FASTCLIX) lancets Test blood sugar 2 times/day. Dx: Other DM Code E13.29 Insulin Use: No blood sugar diagnostic (ACCU-CHEK SMARTVIEW TEST STRIP) test strip Test blood sugar(s) 2 times daily. Dx: Other DM Code E13.29 Insulin: No polyethylene glycol 3350 (MIRALAX) 17 gram/dose powder Take 17 g by mouth once daily. oxybutynin ER (DITROPAN XL) 10 mg 24 hr tablet Take 1 tablet by mouth once daily. hydrOXYzine pamoate (VISTARIL) 25 mg capsule Take 1 capsule by mouth three times daily as needed. [facility] pseudoephedrine HCl 30 mg CsTR Take 1-2 tablets by mouth every 6 hours as needed. COMPOUNDED PRESCRIPTION Stoma catheter tube.DX: Qo5.4 and K59.2 No current facility-administered medications on file prior to visit. 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 Social History Main Topics Smoking status: Never Smoker Smokeless tobacco: Never Used Alcohol use: Yes Comment: SOCIALLY Drug use: No Sexual activity: Not Currently Partners with: Male control/protection: None Other Topics Concern Caffeine Concern Yes Comment:soda at times Special Diet Yes Comment:portion control Exercise Yes Comment:walks as much as she can Review of Symptoms REVIEW OF SYSTEMS RESPIRATORY: Negative for cough, hemoptysis, wheezing, COPD, dyspnea or shortness of breath CARDIOVASCULAR: Has had chest pain- Scheduled for stress test NEURO: SEE HPI EXAM: BP 112/84 (BP Site: Left Arm, BP Position: Sitting, BP Cuff Size: Large Adult) Pulse 84 Temp 36.5 ?C (97.7 ?F) Resp 14 General Appearance: Well appearing, alert, in no acute distress, well-hydrated, well nourished. and Obese. Head: Normocephalic, no masses, lesions, tenderness or abnormalities. Eyes: Anicteric sclera. Pupils are equally round and reactive to light. Extraocular movements are intact. . Lungs: Lungs clear to auscultation. No wheezing, rhonchi, rales. Heart: RRR without murmur, gallop, or rubs. No ectopy. Extremities: No deformities, edema, skin discoloration, clubbing or cyanosis. Musculoskeletal: No joint swelling, deformity, or tenderness. Peripheral Pulses: Normal. Neurologic: patient in wheelchair. 4/5 strength of upper extremities. Significant Weakness of LE b/l with L>R. Decreased to no sensation to distal lower extremities L>R. Worse the more distal you get. This is consistent with previous exams. Neg SLR b/l. CN2-12 intact. Health Maintenance List DILATED RETINAL EXAM due on 01/25/2018 STATIN MED ADHERENCE due on 03/29/2018 DIABETES MED ADHERENCE due on 03/29/2018 HBA1C due on 05/15/2018 LDL CHOLESTEROL due on 02/13/2019 DIABETIC FOOT EXAM due on 02/28/2019 ANNUAL PCP TEAM CHRONIC DISEASE VISIT due on 02/28/2019 DTAP,TDAP,TD(2 - Td) due on 09/09/2019 PAP EVERY 5 YEARS due on 07/28/2022 HPV EVERY 5 YEARS due on 07/28/2022 ONE PNEUMOVAX PRIOR TO AGE 65 Completed INFLUENZA Completed Data reviewed ER reports see above and scanned documents ASSESSMENT/PLAN: 1. Concussion without loss of consciousness, subsequent encounter - ICD9: V58.89, 850.0, ICD10: S06.0X0D (primary diagnosis) CT neg at ER COntinue to monitor- tylenol prn for pain. She has appointment with neuro on Mar 16 2. Frequent falls - ICD9: V15.88, ICD10: R29.6 Will assist in get patient a walker for home use Secondary to Spina bifida - WALKER - FOLDING 3. Spina bifida with hydrocephalus, unspecified spinal region (HCC) - ICD9: 741.00, ICD10: Q05.4 Keep follow up with neuro - WALKER - FOLDING 4. Weakness of both upper extremities - ICD9: 729.89, ICD10: R29.898 See above 5. Muscle weakness of lower extremity - ICD9: 728.87, ICD10: M62.81 See above R side worsening - WALKER - FOLDING 6. Numbness and tingling of left arm and leg - ICD9: 782.0, ICD10: R20.0, R20.2 See above Follow with neuro - WALKER - FOLDING Discussed case with Dr. Dietz who agrees with plan Keep follow up scheduled on 04/04 with PCP Discussed possible red flags and when to seek medical attention. Patient is in agreement with plan. She will contact neuro to see if she can find out what neurosurgeon they recommend so she can try to schedule an appointment. NETTA HIGGINS PA-C Referring Provider: SELF [[id number]] Allergies As of Date: 03/07/2018 Noted Allergy Reaction MUSHROOM 06/10/2016 10 - Anaphylaxis PEANUTS 06/10/2016 10 - Anaphylaxis MRI CONTRAST (GADOLINIUM-CONTAINI*01/03/2017 8 - GI Upset Date Reviewed: 03/07/2018 Reviewed by: Romel) Ronaldo - Fully Assessed Reason for Visit: Recheck [92] Cmt: patient is here for ER follow up; numbness in feet Primary Visit Diagnosis:Concussion without loss of consciousness, subsequent encounter [S06.0X0D] Other Visit Diagnoses:Frequent falls [R29.6] Spina bifida with hydrocephalus, unspecified spinal region (HCC) [Q05.4] Weakness of both upper extremities [R29.898] Muscle weakness of lower extremity [M62.81] Numbness and tingling of left arm and leg [R20.0, R20.2] Order(s):WALKER - FOLDING [[id number]] Order #: [id number] Prescriptions as of 03/07/2018 Sig: PREGABALIN 25 MG CAPSULE Take 1 capsule by mouth once * ATORVASTATIN 10 MG TABLET Take 1 tablet by mouth once d* GLIMEPIRIDE 4 MG TABLET Take 1 tablet by mouth daily * DULOXETINE 60 MG CAPSULE,SHERRY* Take 1 capsule by mouth once * LISINOPRIL 2.5 MG TABLET Take 1 tablet by mouth once d* METFORMIN ER 500 MG TABLET,EX* Take 2 tablets by mouth twice* PROPRANOLOL 10 MG TABLET Take 1 tablet by mouth twice * FLUTICASONE 50 MCG/ACTUATION * Use 2 Sprays in each nostril * LORATADINE 10 MG TABLET Take 1 tablet by mouth once d* ZOLPIDEM 10 MG TABLET Take 1 tablet by mouth as nee* BLOOD-GLUCOSE METER Dispense 1 meter kit. Dx: Ot* LANCETS Test blood sugar 2 times/day* BLOOD SUGAR DIAGNOSTIC STRIPS Test blood sugar(s) 2 times d* POLYETHYLENE GLYCOL 3350 17 G* Take 17 g by mouth once daily. OXYBUTYNIN CHLORIDE ER 10 MG * Take 1 tablet by mouth once d* HYDROXYZINE PAMOATE 25 MG CAP* Take 1 capsule by mouth three* PSEUDOEPHEDRINE 30 MG CAPSULE* Take 1-2 tablets by mouth sarah* COMPOUNDED PRESCRIPTION Stoma catheter tube. DX: Qo5* Problem List As Of Date 03/07/2018 Noted Resolved Threatened , antepartum [O20.0] INVALID FOR*04/07/2011 Supervision of normal first [Z34.00] INVALID FOR*04/07/2011 Cyst of ovary [N83.209] INVALID FOR* Priority: C Depressive disorder, not elsewhere classified [*INVALID FOR*01/06/2016 Priority: A More... Anxiety [F41.9] INVALID FOR* Priority: A More... Dysthymic disorder [F34.1] Priority: A More... Panic attacks [F41.0] Priority: A Neck pain [M54.2] INVALID FOR* Priority: M Cervical radiculopathy [M54.12] INVALID FOR* Priority: M Weakness of both upper extremities [R29.898] INVALID FOR* Priority: M More... Muscle weakness of lower extremity [M62.81] INVALID FOR* Priority: M More... 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 Morbid obesity ([facility]) [E66.01] INVALID FOR* Priority: B Chronic pain [G89.29] INVALID FOR* Priority: M Neurogenic bladder [N31.9] INVALID FOR* Priority: B Hydronephrosis, right [N13.30] INVALID FOR* Priority: C History of kidney stones [Z87.442] INVALID FOR* Priority: C Spina bifida ([facility]) [Q05.9] INVALID FOR* Priority: B More... Neurogenic bowel [K59.2] INVALID FOR* Priority: B Primary insomnia [F51.01] INVALID FOR* Priority: A Type 2 diabetes mellitus with proteinuria ([facility])*INVALID FOR* Priority: A Pyelonephritis [N12] INVALID FOR* Diabetic eye exam ([facility]) [Z01.00, E11.9] INVALID FOR* Priority: A More... Migraine without aura and without status migrai*INVALID FOR*02/28/2018 Priority: A Type 2 diabetes mellitus with albuminuria ([facility])*INVALID FOR* Priority: A Well adult exam [Z00.00] INVALID FOR* Priority: E More... Paroxysmal SVT (supraventricular tachycardia) (*INVALID FOR* Priority: A More... DM (diabetes mellitus), secondary, uncontrolled*INVALID FOR* Priority: A S/P hernia repair [Z98.890, Z87.19] INVALID FOR* Thyroid cyst [E04.1] INVALID FOR* Priority: A More... Migraine without aura and without status migrai*INVALID FOR* Priority: A Medicare annual wellness visit, subsequent [Z00*INVALID FOR* Priority: E More... Mixed hyperlipidemia [E78.2] INVALID FOR* Priority: A History of recurrent UTIs [Z87.440] INVALID FOR* Priority: C Encounter Status:Closed by NETTA JEFFERSON on 03/07/18 PROGRESS Observed: 03/07/2018 Status: COMPLETED Source: [place] 2:08 PM [facility] REPOSITORY HNO ID: [id number] Author: Myles Higgins Service: (none) Author Type: Physician Multi Punch Operator Type: Progress Notes Filed: 03/07/2018 3:03 PM Note Text: Chief Complaint Patient presents with: Recheck: patient is here for ER follow up; numbness in feet HPI Debby Bailon is a 37 year old female who presents here today for ER Follow Up.. Patient with hx of spina bifida and lipomeningocele who has noted worsening lower extremity weakness and n/t Had a fall on Monday and went to ER for evaluation. Was sent home- x-ray showed Degenerative changes She then went to ER again late last night early this morning after another fall. Reports that she hit her head. CT of head and neck shows no intracranial process Still has headache. Some nausea. Has had memory difficulties and confusion since last night. Has had worsening bladder incontinence. Has not had to self cath recently. No loss of bowel except for during Physical Therapy last week. No issues since She recently was seen by PCP and had similar complaints. Has tried Physical Therapy but sometimes that makes her symptoms worse Last MRI of L spine was 2 years ago- per patient says the lipome was starting to return. She has appointment with her neuro on 03/16/18 They have been working on getting her evaluated by neurosurgeon She states she has not heard about when her appointment with surgeon is. She has not tried calling herself. Past medical history, appointments, medications, allergies reviewed. Previous Medical History PAST MEDICAL HISTORY Diagnosis Date - Abnormal sensation of left upper and lower extremity 08/07/2013 - Anxiety - Arthritis started age 19 - Cervical radiculopathy 05/02/2013 - Chronic pain 02/12/2015 - Cyst of ovary 11/28/2011 - DJD (degenerative joint disease), thoracic - DM (diabetes mellitus), secondary, uncontrolled, w/renal complications (HCC) 12/05/2017 - Dysthymic disorder Depression (non-psychotic), sees BRIM SHAPER at [facility]. - History of kidney stones 01/04/2016 - History of recurrent UTIs 11/28/2011 - Hydronephrosis, right 01/04/2016 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 - Lumbago 02/12/2015 - Migraine without aura and without status migrainosus, not intractable 10/18/2016 - Miscarriage - Morbid obesity (HCC) 02/12/2015 - Muscle weakness of left lower extremity 08/07/2013 - Neck pain 05/02/2013 - Neurogenic bladder 02/12/2015 - Neurogenic bowel 01/06/2016 - Neuropathy (HCC) 02/12/2015 post back surgery with secondary infection. Seeing Dr. Gregg - Numbness and tingling of left arm and leg 08/07/2013 - Panic attacks - Paroxysmal SVT (supraventricular tachycardia) ([facility]) 07/03/2017 Per 48 Hr event monitor 06/30/2017 - Primary insomnia 02/17/2016 - Spina bifida (HCC) 01/06/2016 - Thyroid cyst 01/01/2018 Complex right sided cysts. US 12/2017, biopsy per Dr. Josue 01/23/2018 benign. Repeat US in a year. - Type 2 diabetes mellitus with albuminuria ([facility]) 10/18/2016 - Type 2 diabetes mellitus with proteinuria ([facility]) 02/19/2016 - Ulcer of left foot ([facility]) 02/21/2017 - Ventral hernia without obstruction or gangrene - Weakness of both upper extremities 08/07/2013 Chronic Previous Surgical History PAST SURGICAL HISTORY Procedure Laterality Date - 2D ECHO (EXEP) 06/28/2017 EF=65%. nl - DANDC, DIAG AND/OR THERAPEUTIC Dilation AND curettage - PAST SURGICAL HISTORY OF cholecystectomy - PAST SURGICAL HISTORY OF 09/2012 back surgery x2 - PAST SURGICAL HISTORY OF Left AND 02/2014 foot x2 - PAST SURGICAL HISTORY OF 07/2015 Knapp stoma - REPAIR UMBILICAL HERNIA 12/11/2017 - STRESS TEST 07/18/2017 normal Family History FAMILY HISTORY Problem Relation Age of Onset - Arthritis Mother - Diabetes Mother - Heart Mother - Hypertension Mother - Lipids Mother - Stroke Mother - Thyroid Mother - Cancer Father Skin - Cancer Maternal Grandmother LIVER CANCER - Cancer Maternal Uncle Great Uncle - Cancer Maternal Uncle Great Uncle Patient Allergies ALLERGIES Allergen Reactions - Mushroom Anaphylaxis - Peanuts Anaphylaxis - Mri Contrast [Gadol* GI Upset Current Medications Current Outpatient Prescriptions on File Prior to Visit: pregabalin (LYRICA) 25 mg capsule Take 1 capsule by mouth once daily. Per Neurology Dr. Calix atorvastatin (LIPITOR) 10 mg tablet Take 1 tablet by mouth once daily. glimepiride (AMARYL) 4 mg tablet Take 1 tablet by mouth daily with breakfast. DULoxetine (CYMBALTA) 60 mg capsule Take 1 capsule by mouth once daily. lisinopril 2.5 mg tablet Take 1 tablet by mouth once daily. metFORMIN ER (GLUCOPHAGE XR) 500 mg 24 hr tablet Take 2 tablets by mouth twice daily. propranolol (INDERAL) 10 mg tablet Take 1 tablet by mouth twice daily. fluticasone (FLONASE) 50 mcg/actuation nasal spray Use 2 Sprays in each nostril once daily. Rinse mouth after use. loratadine (CLARITIN) 10 mg tablet Take 1 tablet by mouth once daily. zolpidem (AMBIEN) 10 mg tab Take 1 tablet by mouth as needed. Blood-Glucose Meter (ACCU-CHEK ANISH) [facility] [place] 1 meter kit. Dx: Other DM Code E13.29 Lancets (ACCU-CHEK FASTCLIX) lancets Test blood sugar 2 times/day. Dx: Other DM Code E13.29 Insulin Use: No blood sugar diagnostic (ACCU-CHEK SMARTVIEW TEST STRIP) test strip Test blood sugar(s) 2 times daily. Dx: Other DM Code E13.29 Insulin: No polyethylene glycol 3350 (MIRALAX) 17 gram/dose powder Take 17 g by mouth once daily. oxybutynin ER (DITROPAN XL) 10 mg 24 hr tablet Take 1 tablet by mouth once daily. hydrOXYzine pamoate (VISTARIL) 25 mg capsule Take 1 capsule by mouth three times daily as needed. [facility] pseudoephedrine HCl 30 mg CsTR Take 1-2 tablets by mouth every 6 hours as needed. COMPOUNDED PRESCRIPTION Stoma catheter tube.DX: Qo5.4 and K59.2 No current facility-administered medications on file prior to visit. 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 Social History Main Topics Smoking status: Never Smoker Smokeless tobacco: Never Used Alcohol use: Yes Comment: SOCIALLY Drug use: No Sexual activity: Not Currently Partners with: Male control/protection: None Other Topics Concern Caffeine Concern Yes Comment:soda at times Special Diet Yes Comment:portion control Exercise Yes Comment:walks as much as she can Review of Symptoms REVIEW OF SYSTEMS RESPIRATORY: Negative for cough, hemoptysis, wheezing, COPD, dyspnea or shortness of breath CARDIOVASCULAR: Has had chest pain- Scheduled for stress test NEURO: SEE HPI EXAM: BP 112/84 (BP Site: Left Arm, BP Position: Sitting, BP Cuff Size: Large Adult) Pulse 84 Temp 36.5 ?C (97.7 ?F) Resp 14 General Appearance: Well appearing, alert, in no acute distress, well-hydrated, well nourished. and Obese. Head: Normocephalic, no masses, lesions, tenderness or abnormalities. Eyes: Anicteric sclera. Pupils are equally round and reactive to light. Extraocular movements are intact. . Lungs: Lungs clear to auscultation. No wheezing, rhonchi, rales. Heart: RRR without murmur, gallop, or rubs. No ectopy. Extremities: No deformities, edema, skin discoloration, clubbing or cyanosis. Musculoskeletal: No joint swelling, deformity, or tenderness. Peripheral Pulses: Normal. Neurologic: patient in wheelchair. 4/5 strength of upper extremities. Significant Weakness of LE b/l with L>R. Decreased to no sensation to distal lower extremities L>R. Worse the more distal you get. This is consistent with previous exams. Neg SLR b/l. CN2-12 intact. Health Maintenance List DILATED RETINAL EXAM due on 01/25/2018 STATIN MED ADHERENCE due on 03/29/2018 DIABETES MED ADHERENCE due on 03/29/2018 HBA1C due on 05/15/2018 LDL CHOLESTEROL due on 02/13/2019 DIABETIC FOOT EXAM due on 02/28/2019 ANNUAL PCP TEAM CHRONIC DISEASE VISIT due on 02/28/2019 DTAP,TDAP,TD(2 - Td) due on 09/09/2019 PAP EVERY 5 YEARS due on 07/28/2022 HPV EVERY 5 YEARS due on 07/28/2022 ONE PNEUMOVAX PRIOR TO AGE 65 Completed INFLUENZA Completed Data reviewed ER reports see above and scanned documents ASSESSMENT/PLAN: 1. Concussion without loss of consciousness, subsequent encounter - ICD9: V58.89, 850.0, ICD10: S06.0X0D (primary diagnosis) CT neg at ER COntinue to monitor- tylenol prn for pain. She has appointment with neuro on Mar 16 2. Frequent falls - ICD9: V15.88, ICD10: R29.6 Will assist in get patient a walker for home use Secondary to Spina bifida - WALKER - FOLDING 3. Spina bifida with hydrocephalus, unspecified spinal region (HCC) - ICD9: 741.00, ICD10: Q05.4 Keep follow up with neuro - WALKER - FOLDING 4. Weakness of both upper extremities - ICD9: 729.89, ICD10: R29.898 See above 5. Muscle weakness of lower extremity - ICD9: 728.87, ICD10: M62.81 See above R side worsening - WALKER - FOLDING 6. Numbness and tingling of left arm and leg - ICD9: 782.0, ICD10: R20.0, R20.2 See above Follow with neuro - WALKER - FOLDING Discussed case with Dr. Dietz who agrees with plan Keep follow up scheduled on 04/04 with PCP Discussed possible red flags and when to seek medical attention. Patient is in agreement with plan. She will contact neuro to see if she can find out what neurosurgeon they recommend so she can try to schedule an appointment. NETTA HIGGINS PA-C EMERGENCY DEPARTMENT Observed: 03/07/2018 Status: F Source: [place] SUMMARY 1:53 AM [facility] REPOSITORY [facility] Medical Records Department [address] [place] [address] Emergency Department Summary 03/07/18 0036 MR#: [id number] Acct: [id number] Name: DEBBY BAILON Rep #: [id number] : 1980 37 From: Arnold Brice PCP: Will Dietz MD Status: REG ER - ER Visit Summary Date of Service: 03/07/18 Chief Complaint: Fall, head injury History of Present Illness: The patient is a 37 F here with significant other mechanical fall today. Patient history of spinal bifida had 2 spinal surgeries most recent was 5 years ago. Follow[address] by Dr. Calix. Chronic numbness lower extremities left greater than right. Over the past week has been having falls with leg giving out. Today states had 6 falls all due to leg feeling weak and giving out. States 2 falls ago an hour ago fell outside hitting head on the ground. No loss of conscious. Transient nausea. Mild neck pain. No arm weakness or paresthesias. Patient does not take anticoagulation medications. Reports enough help at home, supposed to ambulate with a four-point cane, however 1 of the rubber supports are missing. Physical Examination: General: Alert and oriented 3, no acute distress HEENT: Normocephalic, atraumatic. Moist mucosa membranes. No hemotympanum. No scalp hematoma. No lacerations. Pupils equal and reactive to light. Neck: supple, mild paracervical tenderness. No step-offs. Cardiovascular: Regular rate and rhythm, no murmurs Respiratory: Normal breath sounds, symmetric, no distress Abdomen: Soft, nontender, nondistended Extremities: Nontender, no edema, pulses intact 4 Neuro: no focal neurological deficits. Test Results: CT head and neck, no intracranial process. 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 Emergency Department Course and Treatment: Patient no focal neurologic deficits. His head injury, images obtained. No intracranial process. 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 History of spinal bifida. Have a multiple falls with her chronic condition, other states there is enough help at home. He will olive picker a new four-point walker. Discussed using Tylenol for concussion treatment. Concussion precautions discussed. She does have a follow-up with her neurologist on the . She will keep that appointment. She declined any medications in the ED. Treatment Plan: [] Disposition: Discharge Impression: 1. Concussion without loss of consciousness 2. Multiple falls 3. History of spinal bifida This note was generated with EverTune dictation software. It may contain incorrect words, spelling, and punctuation that were not noted in review of the chart prior to signing ED Disposition - Plan for ED Patient: Disposition: Home or Assisted Living Chief Complaint: Fall Diagnosis: Concussion without loss of consciousness, initial encounter, Multiple falls, History of spina bifida Instructions: ED Concussion Referrals: Will Dietz MD [Primary Care Provider] - Oc Calix MD [STAFF PHYSICIAN] - Keep Mireya appointment Additional Instructions: Use Tylenol 1 g every 6 hours as needed. What to do if you have Problems For any increased pain, shortness of breath, bleeding, nausea or vomiting, chest pain, or any unexpected problems, contact your Primary Care Provider. Call [facility] ([phone]) or report to the closest Emergency Room. Call 911 if necessary. 03/07/18 0153 <Electronically signed by Arnold Brice> Date Arnold Brice Cosigner Signature (If Indicated): Date CC: Will Dietz MD BRAIN/HEAD WITHOUT Observed: 03/07/2018 Status: F Source: NORMA CONTRAST 12:36 AM [facility] REPOSITORY [facility] Imaging Services [address] [place] [address] Brain/Head without Contrast MR#: [id number] Acct: [id number] Name: DEBBY BAILON Rep #: [id number] : 1980 F 37 From: Dylan Quintana MD PCP: Will Dietz MD Status: REG ER Study: Brain/Head without Contrast Date of Exam: 03/07/18 Exam# [id number] Ordering Dr: Arnold Caban DO STUDY: CT BRAIN WITHOUT CONTRAST REASON FOR EXAM: Female, 37 years old. Patient fell RADIATION DOSAGE (If Supplied By Facility): CTDIvol = ( 44.99 ) mGy, DLP = ( 728.62 ) mGycm TECHNIQUE: Transaxial CT imaging of the brain was performed without administration of intravenous contrast material. Individualized dose optimization techniques were used for this CT. COMPARISON: None. FINDINGS: Normal soft tissue structures. Normal calvarium. Normal size ventricles and extra-axial spaces for the patient's age. Normal white matter tracts of the cerebral hemispheres. Normal basal ganglia and thalami. Normal brainstem. Normal cerebellum. There is no intracranial hemorrhage. There are no findings of an acute ischemic infarction. Normal visualized paranasal sinuses. CT/Brain/Head without Contrast IMPRESSION: Normal unenhanced CT scan of the brain. No acute findings in the brain Electronically Signed: Dylan Quintana MD at 1:23 EDT Tel , Service support , CC: Will Dietz MD; Arnold Caban Paper Rewinder Operator: Signed SPINE CERVICAL Observed: 03/07/2018 Status: F Source: PATRIOT WITHOUT CONTRAS 12:36 AM [facility] REPOSITORY [facility] Imaging Services [address] [place] [address] Spine Cervical without Contras MR#: [id number] Acct: [id number] Name: DEBBY BAILON Rep #: [id number] : 1980 F 37 From: Dylan Quintana MD PCP: Will Dietz MD Status: REG ER Study: Spine Cervical without Contras Date of Exam: 03/07/18 Exam# [id number] Ordering Dr: Arnold Caban DO STUDY: CT CERVICAL SPINE WITHOUT CONTRAST REASON FOR EXAM: Female, 37 years old. Patient fell RADIATION DOSAGE (If Supplied By Facility): CTDIvol = ( 31.48 ) mGy, DLP = ( 591.59 ) mGycm TECHNIQUE: High resolution transaxial imaging was performed without contrast material. Sagittal and coronal images were reconstructed. Individualized dose optimization techniques were used for this CT. 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 The craniovertebral junction is flattened but no dislocation. There is a slight loss of the normal lordotic curvature of cervical spine. There are no acute fractures or dislocations. The disc spaces are maintained. . CT/Spine Cervical without Contras IMPRESSION: No acute fractures. 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 CC: Will Dietz MD; Arnold Caban Paper Rewinder Operator: Signed EMERGENCY DEPARTMENT Observed: 03/03/2018 Status: F Source: PATRIOT SUMMARY 9:07 PM [facility] REPOSITORY [facility] Medical Records Department [address] [place] [address] Emergency Department Summary 03/03/18 2101 MR#: [id number] Acct: [id number] Name: DEBBY BAILON Rep #: [id number] : 1980 37 From: Dre Deal MD PCP: Will Dietz MD Status: REG ER - ER Visit Summary Date of Service: 03/03/18 Chief Complaint: Low midline back pain secondary to fall. History of Present Illness: The patient is a 37 F who has history of spina bifida who reports numbness tingling her legs. She reports she has history of spina bifida. She reports incontinence of urine. She denies dysuria, frequency, urgency or hematuria. She denies history of renal ureterolithiasis. She denies fever, chills or night sweats. She states she has weakness to left lower extremity, which is chronic. She also reports altered sensation left lower extremity. She denies any cardiac respiratory symptoms. She denies nausea, vomiting or diarrhea. She does self cath if unable to void. Physical Examination: Vital signs noted and blood pressure slightly elevated 128/74. She is not febrile. BMI is 42.6. Head is atraumatic normocephalic. Pupils are equal round reactive. Extraocular muscles are intact. TMs are pearly white with landmarks noted. Nares patent with no drainage. Posterior pharynx without erythema or exudate. Uvula is midline. There is no dysphonia or dysphasia. Trachea is midline. There is no stridor with auscultation of the neck. Heart is regular without murmur, gallop or rub. S1 and S2 are normal. Lungs are clear to auscultation with good movement of air bilaterally. Abdomen is soft nontender. There are well-healed scars noted. There is a midline low back scar that is well-healed. She has pain to palpation over the lumbar spinous process. There is no CVA tenderness noted. There is no outward signs of trauma. There is no pain the patient the pelvis. There is weakness of the left lower extremity, which is old according the patient. Total ankle reflex are 1-2+ and symmetric. EHL is diminished on the left, which is old. Sensation is altered on the left, which is old. Straight leg test is negative. No perianal decreased sensation. Test Results: Three-view x-ray of the lumbar sacral spine was obtained with minimal degenerative changes noted. Is no evidence of compression fracture. There is no transverse process fracture is noted. Emergency Department Course and Treatment: IV was established and she was medicated with 4 mg of Zofran 4 mg of morphine. X-ray was obtained to evaluate for fracture since she had midline pain after fall. Treatment Plan: Discharge to home with oral analgesia Disposition: Discharged home in stable improved condition. She was reassessed at 2100. Impression: 1. Midline back pain secondary to trauma 2. History of spina bifida 3. Type 2 diabetes This note was generated with EverTune dictation software. It may contain incorrect words, spelling, and punctuation that were not noted in review of the chart prior to signing ED Disposition - Plan for ED Patient: Disposition: Home or Assisted Living Chief Complaint: Numb/Ting Instructions: ED Contusion Back Prescriptions: Hydrocodone Bitart/Apap 5-325 [Lanett 5MG-325MG] 1 tablet PO Q6H PRN PRN 3 Days #10 tablet PRN Reason: Pain Referrals: Will Dietz MD [Primary Care Provider] - Additional Instructions: Your prescription was electronically transmitted to [facility] your preferred pharmacy. What to do if you have Problems For any increased pain, shortness of breath, bleeding, nausea or vomiting, chest pain, or any unexpected problems, contact your Primary Care Provider. Call [facility] ([phone]) or report to the closest Emergency Room. Call 911 if necessary. 03/03/18 3599 <Electronically signed by Dre Deal MD> Date Dre Deal MD Cosigner Signature (If Indicated): Date CC: Will Dietz MD URINALYSIS, COMPLETE Collected: 03/03/2018 Status: F Source: PATRIOT 6:50 PM [facility] REPOSITORY Order Comment: How was Urine Obtained? SUSTAINABILITY PROJECT COORDINATOR TO SPECIFY TYPE CODE TESTS RESULT OUT OF RANGE REFERENCE UNITS LAB L400.3000 Yellow COLOR Normal Yellow LAB L400.3050 Clear Normal CLARITY Clear LAB L400.3200 Normal mg/dl High GLUCOSE, UR 1000 LAB L400.3300 Negative mg/dL Normal BILIRUBIN URINE Negative LAB L400.3400 Negative mg/dl Normal KETONE UR Negative LAB L400.3465 1.002-1.030 Normal SP.GR. DIPSTX 1.015 LAB L400.3550 5.0 - 8.0 pH UR Normal 6.5 LAB L400.3600 Negative mg/dl High PROT 15 DIPSTX LAB L400.3700 Normal mg/dl Normal UROBILI Normal LAB L400.3750 Negative Normal NITRITE UR Negative LAB L400.3780 Negative /ul High OCCULT BLOOD-UR 150 LAB L400.3800 Negative /ul LEUK Normal ESTERASE Negative LAB L400.4050 0-5 /hpf WBC 0 Normal SEEN LAB L400.4100 0-5 /hpf Normal RBC-UA 10-25 SEEN LAB L400.4150 5-10 /hpf SQUAM 0 Normal EPI SEEN LAB L400.4300 None Seen /hpf 0 Normal BACTERIA SEEN LAB L400.4350 <or=2+ /hpf 0 Normal MUCUS, URINE SEEN Performed By: #### L400.0001 #### [facility] [address] [place], [place], [id number] LUMBAR SPINE 2 OR 3 Observed: 03/03/2018 Status: F Source: NORMA VIEWS 5:40 PM [facility] REPOSITORY [facility] Imaging Services [address] [place] [address] Lumbar Spine 2 or 3 Views MR#: [id number] Acct: [id number] Name: DEBBY BAILON Rep #: [id number] : 1980 F 37 From: Malcolm Jaimes MD PCP: Will Dietz MD Status: REG ER Study: Lumbar Spine 2 or 3 Views Date of Exam: 03/03/18 Exam# [id number] Ordering Dr: Dre Deal MD STUDY: X-RAY - LUMBAR SPINE REASON FOR EXAM: Female, 37 years old. Low back pain TECHNIQUE: 3 view(s) of the lumbar spine were obtained. COMPARISON: None FINDINGS: Evidence of previous back surgery with laminectomy. Normal lumbar lordosis. There is no substantial scoliosis. There is a normal alignment of the vertebrae. Normal vertebral bodies and endplates. There is multi-level degenerative disc disease with multi-level disc space narrowing. There is no demonstrated fracture. 6 Multiple Sitzmarkers from previous bowel motility study. Calcifications overlying the left renal shadow and in the right lower quadrant of uncertain significance RAD/Lumbar Spine 2 or 3 Views IMPRESSION: Degenerative and postsurgical changes in the lumbar spine. No demonstrated acute abnormality Electronically Signed: Og Jaimes MD at 18:38 EDT , Service support , CC: Will Dietz MD; Dre Deal MD Paper Rewinder Operator: Signed ECG COMPLETE W Observed: 02/28/2018 Status: F Source: [place] INTERPRETATION 8:03 PM [facility] NAME : DEBBY BAILON PID : [id number] : 1980 Gender : Female Race : ORD : [id number] Procedure Date : Feb 28 2018 20:03:55 Edit Date : Mar 02 2018 15:30:39 Diagnosis:NORMAL SINUS RHYTHM NORMAL ECG Confirmed by CELINE JUAREZ D.O. ([id number]) on 03/02/2018 3:30:30 PM Ventricular Rate : 76 BPM Atrial Rate : 76 BPM P-R Interval : 140 ms QRS Duration : 76 ms Q-T Interval : 400 ms QTC Calculation(Bezet) : 450 ms P [place] : 11 degrees R [place] : 22 degrees T [place] : 19 degrees Test Reason : Location : 185 : WO Overread By : CELINE JUAREZ D.O. Edited By : CELINE JUAREZ D.O. Referred By : WILL DIETZ Acquired by : EM, PROGRESS Observed: 02/28/2018 Status: COMPLETED Source: [place] 7:19 PM [facility] [place] REPOSITORY HNO ID: [id number] Author: Will Dietz Service: (none) Author Type: Physician Type: Progress Notes Filed: 02/28/2018 9:10 PM Note Text: Medicare Yearly Visit Medical B eligibilty date 03/29/2016 Date of last exam NA PAST MEDICAL HISTORY Diagnosis Date - Abnormal sensation of left upper and lower extremity 08/07/2013 - Anxiety - Arthritis started age 19 - Cervical radiculopathy 05/02/2013 - Chronic pain 02/12/2015 - Cyst of ovary 11/28/2011 - DJD (degenerative joint disease), thoracic - DM (diabetes mellitus), secondary, uncontrolled, w/renal complications (HCC) 12/05/2017 - Dysthymic disorder Depression (non-psychotic), sees BRIM SHAPER at [facility]. 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 Seeing Dr. Gregg - Numbness and tingling of left arm and leg 08/07/2013 - Panic attacks - Paroxysmal SVT (supraventricular tachycardia) ([facility]) 07/03/2017 Per 48 Hr event monitor 06/30/2017 - Primary insomnia 02/17/2016 - Spina bifida (HCC) 01/06/2016 - Thyroid cyst 01/01/2018 Complex right sided cysts. US 12/2017, biopsy per Dr. Josue 01/23/2018 benign. Repeat US in a year. 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 nl - DANDC, DIAG AND/OR THERAPEUTIC Dilation AND curettage - PAST SURGICAL HISTORY OF cholecystectomy - PAST SURGICAL HISTORY OF 09/2012 back surgery x2 - PAST SURGICAL HISTORY OF Left AND 02/2014 foot x2 - PAST SURGICAL HISTORY OF 07/2015 Knapp stoma - REPAIR UMBILICAL HERNIA 12/11/2017 - STRESS TEST 07/18/2017 normal Mushroom; Peanuts; Mri Contrast [Gadolinium-Containing Contrast Media] Medications reviewed: Yes FAMILY HISTORY Problem Relation Age of Onset - Arthritis Mother - Diabetes Mother - Heart Mother - Hypertension Mother - Lipids Mother - Stroke Mother - Thyroid Mother - Cancer Father Skin - Cancer Maternal Grandmother LIVER CANCER - Cancer Maternal Uncle Great Uncle - Cancer Maternal Uncle Great Uncle SOCIAL HISTORY: Social History Marital status: Spouse name: MEHDI Years of education: 12 Number of children: 0 Occupational History 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 She watches her diet for sodium, low fat and low cholesterol all of the time. List of current specialists seen: Seeing Dr. Calix, Dr. Hancock, Dr. Gomez, [facility], [facility] Planning discussed including patients advanced directive wishes: No I am willing to follow Debby's advanced directives. Depression screen She in the past two weeks admits to having felt depressed. Functional Ability/Safety Screen 1. Was the patient's timed Up and Go test unsteady or longer than 30 seconds? do to her spinabifita. 2. Does the patient need help with the phone, transportation, shopping,preparing meals, housework, laundry, medications or managing money? has been more difficult due to worsening of her leg weakness and numbness. 3. Does your home have rugs in the hallway, lack of grab bars in the bathroom (Y), lack of handrails on the stairs or have poor lighting? No Hearing Evaluation: normal PHYSICAL EXAM BP 122/78 Pulse 78 Resp 18 Ht 154.9 cm (5' 1) Wt 105.7 kg (233 lb) BMI 44.02 kg/m? Alert and oriented X 3: YES Body mass index is 44.02 kg/m?. Seeing optho See below ASSESSMENT/PLAN: 37 year old female The following prevention plan was discussed during the office visit and provided to the patient: See below Will Dietz MD Chief Complaint No chief complaint on file. HPI Debby Bailon is a 37 year old female who presents here today for extensive.. Patient with hx of DM type 2, hyperlipidemia, spina bifida, anxiety, depression, migraines as well as those reviewed and addressed below. Neuro believes she may need to have a third surgery on her lower back due to the suspected return of the lipomeningocele. Patient has had increased pain in the legs along with numbness and weakness. She has developed a hypersensitivity to light touch on her legs. Has been needing to use her wheel chair more due to her weakness and risk of falls along with her walker. Monday night and Monday morning was in ER due to difficulty with walking. Was given a dose of prednisone there and then was sent home with a 5 day burst of prednisone and by the next day she was starting to regain movement and strength. Her previous neurosurgeon has told her he will not do surgery on her again. He neurologist sent her to PHYSICAL THERAPY to try to improve symptoms and the PHYSICAL THERAPY at times has made her symptoms worse and today caused fecal incontinence with doing the HEP exercises. Neurology is also working on trying to get her into a new neurosurgeon. With being on the prednisone her BS's have been elevated. She is trying to increase her fluid intake. Patient has multiple complaints and positive ROS's. Past medical history, appointments, medications, allergies reviewed. Previous Medical History PAST MEDICAL HISTORY Diagnosis Date - Abnormal sensation of left upper and lower extremity 08/07/2013 - Anxiety - Arthritis started age 19 - Cervical radiculopathy 05/02/2013 - Chronic pain 02/12/2015 - Cyst of ovary 11/28/2011 - DJD (degenerative joint disease), thoracic - DM (diabetes mellitus), secondary, uncontrolled, w/renal complications (HCC) 12/05/2017 - Dysthymic disorder Depression (non-psychotic), sees BRIM SHAPER at [facility]. 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 Seeing Dr. Gregg - Numbness and tingling of left arm and leg 08/07/2013 - Panic attacks - Paroxysmal SVT (supraventricular tachycardia) ([facility]) 07/03/2017 Per 48 Hr event monitor 06/30/2017 - Primary insomnia 02/17/2016 - Spina bifida (HCC) 01/06/2016 - Thyroid cyst 01/01/2018 Complex right sided cysts. US 12/2017, biopsy per Dr. Josue 01/23/2018 benign. Repeat US in a year. 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 nl - DANDC, DIAG AND/OR THERAPEUTIC Dilation AND curettage - PAST SURGICAL HISTORY OF cholecystectomy - PAST SURGICAL HISTORY OF 09/2012 back surgery x2 - PAST SURGICAL HISTORY OF Left AND 02/2014 foot x2 - PAST SURGICAL HISTORY OF 07/2015 Knapp stoma - REPAIR UMBILICAL HERNIA 12/11/2017 - STRESS TEST 07/18/2017 normal Family History FAMILY HISTORY Problem Relation Age of Onset - Arthritis Mother - Diabetes Mother - Heart Mother - Hypertension Mother - Lipids Mother - Stroke Mother - Thyroid Mother - Cancer Father Skin - Cancer Maternal Grandmother LIVER CANCER - Cancer Maternal Uncle Great Uncle - Cancer Maternal Uncle Great Uncle Patient Allergies ALLERGIES Allergen Reactions - Mushroom Anaphylaxis - Peanuts Anaphylaxis - Mri Contrast [Gadol* GI Upset Current Medications Current Outpatient Prescriptions on File Prior to Visit: fluticasone (FLONASE) 50 mcg/actuation nasal spray Use 2 Sprays in each nostril once daily. Rinse mouth after use. loratadine (CLARITIN) 10 mg tablet Take 1 tablet by mouth once daily. pseudoephedrine HCl 30 mg CsTR Take 1-2 tablets by mouth every 6 hours as needed. zolpidem (AMBIEN) 10 mg tab Take 1 tablet by mouth as needed. glimepiride (AMARYL) 4 mg tablet Take 1 tablet by mouth daily with breakfast. atorvastatin (LIPITOR) 10 mg tablet Take 1 tablet by mouth once daily. polyethylene glycol 3350 (MIRALAX) 17 gram/dose powder Take 17 g by mouth once daily. propranolol (INDERAL) 10 mg tablet Take 1 tablet by mouth twice daily. DULoxetine (CYMBALTA) 30 mg capsule Take 1 capsule by mouth once daily. metFORMIN ER (GLUCOPHAGE XR) 500 mg 24 hr tablet Take 2 tablets by mouth twice daily. lisinopril 2.5 mg tablet Take 1 tablet by mouth once daily. oxybutynin ER (DITROPAN XL) 10 mg 24 hr tablet Take 1 tablet by mouth once daily. hydrOXYzine pamoate (VISTARIL) 25 mg capsule Take 1 capsule by mouth three times daily as needed. [facility] oxyCODONE-acetaminophen (PERCOCET) 5-325 mg tablet Take 1 tablet by mouth every 4 hours as needed for Pain for up to 7 days. Blood-Glucose Meter (ACCU-CHEK ANISH) [facility] [place] 1 meter kit. Dx: Other DM Code E13.29 Lancets (ACCU-CHEK FASTCLIX) lancets Test blood sugar 2 times/day. Dx: Other DM Code E13.29 Insulin Use: No blood sugar diagnostic (ACCU-CHEK SMARTVIEW TEST STRIP) test strip Test blood sugar(s) 2 times daily. Dx: Other DM Code E13.29 Insulin: No COMPOUNDED PRESCRIPTION Stoma catheter tube.DX: Qo5.4 and K59.2 No current facility-administered medications on file prior to visit. 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 Social History Main Topics Smoking status: Never Smoker Smokeless tobacco: Never Used Alcohol use: Yes Comment: SOCIALLY Drug use: No Sexual activity: Not Currently Partners with: Male control/protection: None Other Topics Concern Caffeine Concern Yes Comment:soda at times Special Diet Yes Comment:portion control Exercise Yes Comment:walks as much as she can Review of Symptoms REVIEW OF SYSTEMS GENERAL: No weight loss, malaise or fevers HEENT: Negative for frequent or significant headaches, significant change in vision, significant vision problems, nasal discharge, or nose bleeds, sore throat, difficulty swallowing, mouth lesions, hoarseness. Has been getting pain in her ears but when she saw her ENT she was told exam looked ok. NECK: Negative for lumps, goiter, pain and significant neck swelling RESPIRATORY: Negative for cough, hemoptysis, wheezing, COPD, dyspnea. Patient has been having increased shortness of breath. Also getting CASTELAN CARDIOVASCULAR: Negative for leg swelling, hypertension, CHF or changes in her typical palpitations. Has been having chest pain for the past several weeks. Was bad last night but decided not to go to ER. Seems worse with activity and stress. Pain will radiaet into the jaw and arms. Will get nauseated with it and diaphoretic. Last night vomited once. Continues to say it was extremely painful but never had a squad called or derek to ED. GI: No heartburn or reflux symptoms. Has had nausea and vomiting with chest pain. Has had diarrhea in the past 24 hrs and has eased up as the day is going on. : patient has been having dysuria and urine frequency. Says her urine is thick. MUSCULOSKELETAL: see HPI SKIN: Negative for lesions, rash, and itching PSYCH: depression has become worse. Is waiting to get in with [facility]. HEMATOLOGY/LYMPHOLOGY: Negative for prolonged bleeding, bruising easily or swollen nodes ENDOCRINE: Negative for cold or heat intolerance. Sugars have been high with being on the prednisone NEURO: No history of headaches, syncope, paralysis, seizures or tremors. Did have a migraine in th past week which was the first time in several months. EXAM: BP 122/78 Pulse 78 Resp 18 Ht 154.9 cm (5' 1) Wt 105.7 kg (233 lb) BMI 44.02 kg/m? General Appearance: Well appearing, alert, in no acute distress, well-hydrated, well nourished. and Morbidly obese. Skin: Skin color, texture, turgor normal, no suspicious rashes or lesions. Head: Normocephalic, no masses, lesions, tenderness or abnormalities. Eyes: Anicteric sclera. Pupils are equally round and reactive to light. Extraocular movements are intact. . Ears: External ears normal, canals clear. Nose/Sinuses: Nares normal, septum midline, mucosa normal, no drainage or sinus tenderness. Oropharynx: Lips, mucosa, and tongue normal, teeth and gums normal, oropharynx normal. Neck: Supple, no adenopathy; thyroid symmetric, normal size, no bruits. Lungs: Lungs clear to auscultation. No wheezing, rhonchi, rales. Heart: RRR without murmur, gallop, or rubs. No ectopy. Abdomen: Normal abdominal exam, Abdomen soft, non-tender. Bowel sounds normal. No masses, organomegaly. Extremities: No deformities, edema, skin discoloration, Musculoskeletal: Muscular strength intact, No joint swelling, deformity, or tenderness. Peripheral Pulses: Normal. Neurologic: Reflexes normal and symmetric. Sensation to light touch normal in face and upper extremities. Has chronic decreased sensation in the lower extremities that is worse as you get to the feet. Intact. Diabetic Foot Exam: Feet: Shoes and socks removed, normal distal pulses, vibratory exam abscent due to spina bifida and calluses noted left Skin: warm and dry Vascular Pulses: Normal SEMMES-ADRINAA MONOFILAMENT TESTING Left Foot Right Foot Dorsal Surface Absent Dorsal Surface Absent Plantar Surface Absent Plantar Surface Absent . Health Maintenance List DILATED RETINAL EXAM due on 01/25/2018 DIABETIC FOOT EXAM due on 02/21/2018 STATIN MED ADHERENCE due on 03/29/2018 DIABETES MED ADHERENCE due on 03/29/2018 HBA1C due on 05/15/2018 ANNUAL PCP TEAM CHRONIC DISEASE VISIT due on 01/30/2019 LDL CHOLESTEROL due on 02/13/2019 DTAP,TDAP,TD(2 - Td) due on 09/09/2019 PAP EVERY 5 YEARS due on 07/28/2022 HPV EVERY 5 YEARS due on 07/28/2022 ONE PNEUMOVAX PRIOR TO AGE 65 Completed INFLUENZA Completed Data reviewed Component Latest Ref Rng AND Units 10/10/2017 02/13/2018 Protein, Total 6.3 - 8.0 g/dL 7.9 7.2 Albumin 3.9 - 4.9 g/dL 4.2 4.0 Calcium 8.5 - 10.2 mg/dL 9.1 8.8 Bilirubin, Total 0.2 - 1.3 mg/dL 0.3 0.4 Alkaline Phosphatase 32 - 117 U/L 85 67 AST 13 - 35 U/L 44 (H) 44 (H) Glucose 74 - 99 mg/dL 178 (H) 195 (H) BUN 7 - 21 mg/dL 9 7 Creatinine 0.58 - 0.96 mg/dL 0.73 0.70 Sodium 136 - 144 mmol/L 138 138 Potassium 3.7 - 5.1 mmol/L 4.2 4.2 Chloride 97 - 105 mmol/L 101 103 CO2 22 - 30 mmol/L 21 (L) 21 (L) Anion Gap 9 - 18 mmol/L 16 14 ALT 7 - 38 U/L 55 (H) 38 eGFR- >60 >60 eGFR-All Other Races . >60 >60 Color Yellow Yellow Clarity Clear Clear Glucose, Urine Negative mg/dL >=500 (A) Bilirubin, Urine Negative Negative Ketones, Urine Negative Negative Specific [place], Ur 1.005 - 1.030 1.009 Hemoglobin/Blood,Ur Negative Negative pH, Urine 4.5 - 8.0 6.0 Protein, Urine Negative mg/dL Negative Urobilinogen Normal Elevated (A) Nitrites Negative Negative Leukest Negative Negative Comments SEE COMMENT Urine Robbi Comment SEE COMMENT WBC, Urine 0 - 5 /HPF 0-5 RBC, Urine 0 - 3 /HPF 0-3 Epithelial Cells /HPF SEE COMMENT Cholesterol, Total <200 mg/dL 170 150 Triglyceride <150 mg/dL 173 (H) 127 HDL Cholesterol >39 mg/dL 36 (L) 35 (L) LDL Cholesterol <100 mg/dL 99 90 Non HDL Cholesterol <130 mg/dL 134 (H) 115 Fasting Time hrs 17 12 VLDL Cholesterol <30 mg/dL 35 (H) 25 TC:HDL Ratio <5.10 4.72 4.29 LDL:HDL Ratio <2.54 2.75 (H) 2.57 (H) Creatinine, Ur Random (UCRR) 20 - 300 mg/dL 50.7 Albumin, Urine Random 0.0 - 23.0 mg/L 18.0 Albumin/Creat Ratio 0 - 30 mg/g 36 (H) Hemoglobin A1C 4.3 - 5.6 % 8.9 (H) 8.3 (H) Estimated Average Glucose mg/dL 209 192 In office EKG: Showed NSR with non-specific inverted T waves in lead III. This is unchanged from EKG done 05/2017 A/P ASSESSMENT/PLAN: 1. Medicare annual wellness visit, subsequent - ICD9: V70.0, ICD10: Z00.00 (primary diagnosis) - Encouraged monthly Breast Self Exam - Follow up for annual exam in one year. 2. 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 DM (diabetes mellitus), secondary, uncontrolled, w/renal complications (HCC) - ICD9: 249.41, ICD10: E13.29, E13.65 - A above - COMP METABOLIC PANEL - HGB A1C - ALBUMIN/CREAT RATIO RND UR - LIPID PANEL, NONFASTING 5. Diabetic eye exam (HCC) - ICD9: V72.0, 250.00, ICD10: Z01.00, E11.9 - needs to get updated 6. Mixed hyperlipidemia - ICD9: 272.2, ICD10: E78.2 - improved control - Continue current medication. - Encouraged following a low fat, low cholesterol diet. - Discussed the benefits of regular aerobic exercise and weight loss. - Encouraged following a low carbohydrate, healthy oil intake diet. - COMP METABOLIC PANEL - LIPID PANEL, NONFASTING 7. Atypical chest pain - ICD9: 786.59, ICD10: R07.89 - With Hx of non-diagnostic tread mill stress test in 06/2017 and the fact she is having increased weakness and numbness in her legs from her spina bifida and therefore greater risk of falls and injury will need a nuclear non-treadmill stress. - NM CARDIAC PERF STRESS/PHARM - ECG COMPLETE W INTERPRETATION - Is stress test normal and symptoms not improved by the cymbalta will add on PPI. 8. CASTELAN (dyspnea on exertion) - ICD9: 786.09, ICD10: R06.09 Check - NM CARDIAC PERF STRESS/PHARM 9. Migraine without aura and without status migrainosus, not intractable - ICD9: 346.10, ICD10: G43.009 - Stable with no increase in frequency, cont - PROPRANOLOL 10 MG TABLET 10. Paroxysmal SVT (supraventricular tachycardia) (HCC) - ICD9: 427.0, ICD10: I47.1 cont - PROPRANOLOL 10 MG TABLET - ECG COMPLETE W INTERPRETATION 11. Neuropathy (HCC) - ICD9: 355.9, ICD10: G62.9 Cont with neuro who has her on: - PREGABALIN 25 MG CAPSULE 12. Spina bifida with hydrocephalus, unspecified spinal region (HCC) - ICD9: 741.00, ICD10: Q05.4 - cont with neurology 13. Neurogenic bladder - ICD9: 596.54, ICD10: N31.9 - Needs to get back with urology 14. Lipomeningocele (HCC) - ICD9: 741.90, ICD10: Q05.9 - Sounds my be an issue again and neurology is working on getting her into a new neurosurgeon 15. Morbid obesity (HCC) - ICD9: 278.01, ICD10: E66.01 - Patient to work better on weight management 16. Neurogenic bowel - ICD9: 564.81, ICD10: K59.2 - Chronic 17. Hydronephrosis, right - ICD9: 591, ICD10: N13.30 - Needs to return to urology 18. Chronic pain syndrome - ICD9: 338.4, ICD10: G89.4 cont - PREGABALIN 25 MG CAPSULE per neurology 19. Primary insomnia - ICD9: 307.42, ICD10: F51.01 - Recent stressors have affected her ability to fall asleep as well as she had been. 20. Dysthymic disorder - ICD9: 300.4, ICD10: F34.1 - Needs to get [facility] - Will increase her cymbalta to 60 mg a day 21. Anxiety - ICD9: 300.00, ICD10: F41.9 - As above 22. Panic attacks - ICD9: 300.01, ICD10: F41.0 - As above 23. Dysuria - ICD9: 788.1, ICD10: R30.0 - Urine was normal in appearance - UA DIP B/O was normal except for blood and is on her menstrual cycle 24. History of recurrent UTIs - ICD9: V13.02, ICD10: Z87.440 - Needs to return to urology - UA DIP B/O Pending Prescriptions Disp Refills ATORVASTATIN 10 MG TABLET 90 tablet 1 Sig: Take 1 tablet by mouth once daily. CODIE: No GLIMEPIRIDE 4 MG TABLET 30 tablet 5 Sig: Take 1 tablet by mouth daily with breakfast. CODIE: No DULOXETINE 60 MG CAPSULE,DELAYED RELEASE 90 capsule 1 Sig: Take 1 capsule by mouth once daily. CODIE: No LISINOPRIL 2.5 MG TABLET 90 tablet 1 Sig: Take 1 tablet by mouth once daily. CODIE: No METFORMIN ER 500 MG TABLET,EXTENDED RELEASE 24 HR 360 tablet 1 Sig: Take 2 tablets by mouth twice daily. CODIE: No PROPRANOLOL 10 MG TABLET 180 tablet 1 Sig: Take 1 tablet by mouth twice daily. CODIE: No Signed Prescriptions Disp Refills regadenoson (LEXISCAN) 0.4 mg/5 mL syrg 5 mL 0 Sig: Inject 5 mL intravenously one time only for 1 dose. Give IV push over 10 seconds and follow with 5 ml of normal saline F/u Nteta in 5 weeks for anxiety/depression chest pain. F/u with me in 4 months routine Will Dietz MD CNOV Observed: 02/28/2018 Status: COMPLETED Source: [place] 5:[address] [facility] REPOSITORY Office Visit (FAMPWS) DEBBY BAILON ([id number]) 1980 F Date Time Provider Department 02/28/18 5:40 PM WILL DIETZ During your visit today, we recorded the following information about you: Pulse Respiration Blood pressure Weight 78/minute 18/minute 122/78 105.7 kg Height 1.549 m Will Dietz MD 02/28/2018 9:10 PM Signed Medicare Yearly Visit Medical B eligibilty date 03/29/2016 Date of last exam NA PAST MEDICAL HISTORY Diagnosis Date - Abnormal sensation of left upper and lower extremity 08/07/2013 - Anxiety - Arthritis started age 19 - Cervical radiculopathy 05/02/2013 - Chronic pain 02/12/2015 - Cyst of ovary 11/28/2011 - DJD (degenerative joint disease), thoracic - DM (diabetes mellitus), secondary, uncontrolled, w/renal complications (HCC) 12/05/2017 - Dysthymic disorder Depression (non-psychotic), sees BRIM SHAPER at [facility]. 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 Seeing Dr. Gregg - Numbness and tingling of left arm and leg 08/07/2013 - Panic attacks - Paroxysmal SVT (supraventricular tachycardia) ([facility]) 07/03/2017 Per 48 Hr event monitor 06/30/2017 - Primary insomnia 02/17/2016 - Spina bifida (HCC) 01/06/2016 - Thyroid cyst 01/01/2018 Complex right sided cysts. US 12/2017, biopsy per Dr. Josue 01/23/2018 benign. Repeat US in a year. 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 nl - DANDC, DIAG AND/OR THERAPEUTIC Dilation AND curettage - PAST SURGICAL HISTORY OF cholecystectomy - PAST SURGICAL HISTORY OF 09/2012 back surgery x2 - PAST SURGICAL HISTORY OF Left AND 02/2014 foot x2 - PAST SURGICAL HISTORY OF 07/2015 Knapp stoma - REPAIR UMBILICAL HERNIA 12/11/2017 - STRESS TEST 07/18/2017 normal Mushroom; Peanuts; Mri Contrast [Gadolinium-Containing Contrast Media] Medications reviewed: Yes FAMILY HISTORY Problem Relation Age of Onset - Arthritis Mother - Diabetes Mother - Heart Mother - Hypertension Mother - Lipids Mother - Stroke Mother - Thyroid Mother - Cancer Father Skin - Cancer Maternal Grandmother LIVER CANCER - Cancer Maternal Uncle Great Uncle - Cancer Maternal Uncle Great Uncle SOCIAL HISTORY: Social History Marital status: Spouse name: MEHDI Years of education: 12 Number of children: 0 Occupational History 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 She watches her diet for sodium, low fat and low cholesterol all of the time. List of current specialists seen: Seeing Dr. Calix, Dr. Hancock, Dr. Gomez, [facility], [facility] Planning discussed including patients advanced directive wishes: No I am willing to follow Debby's advanced directives. Depression screen She in the past two weeks admits to having felt depressed. Functional Ability/Safety Screen 1. Was the patient's timed Up and Go test unsteady or longer than 30 seconds? do to her spinabifita. 2. Does the patient need help with the phone, transportation, shopping,preparing meals, housework, laundry, medications or managing money? has been more difficult due to worsening of her leg weakness and numbness. 3. Does your home have rugs in the hallway, lack of grab bars in the bathroom (Y), lack of handrails on the stairs or have poor lighting? No Hearing Evaluation: normal PHYSICAL EXAM BP 122/78 Pulse 78 Resp 18 Ht 154.9 cm (5' 1) Wt 105.7 kg (233 lb) BMI 44.02 kg/m? Alert and oriented X 3: YES Body mass index is 44.02 kg/m?. Seeing optho See below ASSESSMENT/PLAN: 37 year old female The following prevention plan was discussed during the office visit and provided to the patient: See below Will Dietz MD Chief Complaint No chief complaint on file. HPI Debby Bailon is a 37 year old female who presents here today for extensive.. Patient with hx of DM type 2, hyperlipidemia, spina bifida, anxiety, depression, migraines as well as those reviewed and addressed below. Neuro believes she may need to have a third surgery on her lower back due to the suspected return of the lipomeningocele. Patient has had increased pain in the legs along with numbness and weakness. She has developed a hypersensitivity to light touch on her legs. Has been needing to use her wheel chair more due to her weakness and risk of falls along with her walker. Monday night and Monday morning was in ER due to difficulty with walking. Was given a dose of prednisone there and then was sent home with a 5 day burst of prednisone and by the next day she was starting to regain movement and strength. Her previous neurosurgeon has told her he will not do surgery on her again. He neurologist sent her to PHYSICAL THERAPY to try to improve symptoms and the PHYSICAL THERAPY at times has made her symptoms worse and today caused fecal incontinence with doing the HEP exercises. Neurology is also working on trying to get her into a new neurosurgeon. With being on the prednisone her BS's have been elevated. She is trying to increase her fluid intake. Patient has multiple complaints and positive ROS's. Past medical history, appointments, medications, allergies reviewed. Previous Medical History PAST MEDICAL HISTORY Diagnosis Date - Abnormal sensation of left upper and lower extremity 08/07/2013 - Anxiety - Arthritis started age 19 - Cervical radiculopathy 05/02/2013 - Chronic pain 02/12/2015 - Cyst of ovary 11/28/2011 - DJD (degenerative joint disease), thoracic - DM (diabetes mellitus), secondary, uncontrolled, w/renal complications (HCC) 12/05/2017 - Dysthymic disorder Depression (non-psychotic), sees BRIM SHAPER at [facility]. 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 Seeing Dr. Gregg - Numbness and tingling of left arm and leg 08/07/2013 - Panic attacks - Paroxysmal SVT (supraventricular tachycardia) ([facility]) 07/03/2017 Per 48 Hr event monitor 06/30/2017 - Primary insomnia 02/17/2016 - Spina bifida (HCC) 01/06/2016 - Thyroid cyst 01/01/2018 Complex right sided cysts. US 12/2017, biopsy per Dr. Josue 01/23/2018 benign. Repeat US in a year. 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 nl - DANDC, DIAG AND/OR THERAPEUTIC Dilation AND curettage - PAST SURGICAL HISTORY OF cholecystectomy - PAST SURGICAL HISTORY OF 09/2012 back surgery x2 - PAST SURGICAL HISTORY OF Left AND 02/2014 foot x2 - PAST SURGICAL HISTORY OF 07/2015 Knapp stoma - REPAIR UMBILICAL HERNIA 12/11/2017 - STRESS TEST 07/18/2017 normal Family History FAMILY HISTORY Problem Relation Age of Onset - Arthritis Mother - Diabetes Mother - Heart Mother - Hypertension Mother - Lipids Mother - Stroke Mother - Thyroid Mother - Cancer Father Skin - Cancer Maternal Grandmother LIVER CANCER - Cancer Maternal Uncle Great Uncle - Cancer Maternal Uncle Great Uncle Patient Allergies ALLERGIES Allergen Reactions - Mushroom Anaphylaxis - Peanuts Anaphylaxis - Mri Contrast [Gadol* GI Upset Current Medications Current Outpatient Prescriptions on File Prior to Visit: fluticasone (FLONASE) 50 mcg/actuation nasal spray Use 2 Sprays in each nostril once daily. Rinse mouth after use. loratadine (CLARITIN) 10 mg tablet Take 1 tablet by mouth once daily. pseudoephedrine HCl 30 mg CsTR Take 1-2 tablets by mouth every 6 hours as needed. zolpidem (AMBIEN) 10 mg tab Take 1 tablet by mouth as needed. glimepiride (AMARYL) 4 mg tablet Take 1 tablet by mouth daily with breakfast. atorvastatin (LIPITOR) 10 mg tablet Take 1 tablet by mouth once daily. polyethylene glycol 3350 (MIRALAX) 17 gram/dose powder Take 17 g by mouth once daily. propranolol (INDERAL) 10 mg tablet Take 1 tablet by mouth twice daily. DULoxetine (CYMBALTA) 30 mg capsule Take 1 capsule by mouth once daily. metFORMIN ER (GLUCOPHAGE XR) 500 mg 24 hr tablet Take 2 tablets by mouth twice daily. lisinopril 2.5 mg tablet Take 1 tablet by mouth once daily. oxybutynin ER (DITROPAN XL) 10 mg 24 hr tablet Take 1 tablet by mouth once daily. hydrOXYzine pamoate (VISTARIL) 25 mg capsule Take 1 capsule by mouth three times daily as needed. [facility] oxyCODONE-acetaminophen (PERCOCET) 5-325 mg tablet Take 1 tablet by mouth every 4 hours as needed for Pain for up to 7 days. Blood-Glucose Meter (ACCU-CHEK ANISH) [facility] [place] 1 meter kit. Dx: Other DM Code E13.29 Lancets (ACCU-CHEK FASTCLIX) lancets Test blood sugar 2 times/day. Dx: Other DM Code E13.29 Insulin Use: No blood sugar diagnostic (ACCU-CHEK SMARTVIEW TEST STRIP) test strip Test blood sugar(s) 2 times daily. Dx: Other DM Code E13.29 Insulin: No COMPOUNDED PRESCRIPTION Stoma catheter tube.DX: Qo5.4 and K59.2 No current facility-administered medications on file prior to visit. 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 Social History Main Topics Smoking status: Never Smoker Smokeless tobacco: Never Used Alcohol use: Yes Comment: SOCIALLY Drug use: No Sexual activity: Not Currently Partners with: Male control/protection: None Other Topics Concern Caffeine Concern Yes Comment:soda at times Special Diet Yes Comment:portion control Exercise Yes Comment:walks as much as she can Review of Symptoms REVIEW OF SYSTEMS GENERAL: No weight loss, malaise or fevers HEENT: Negative for frequent or significant headaches, significant change in vision, significant vision problems, nasal discharge, or nose bleeds, sore throat, difficulty swallowing, mouth lesions, hoarseness. Has been getting pain in her ears but when she saw her ENT she was told exam looked ok. NECK: Negative for lumps, goiter, pain and significant neck swelling RESPIRATORY: Negative for cough, hemoptysis, wheezing, COPD, dyspnea. Patient has been having increased shortness of breath. Also getting CASTELAN CARDIOVASCULAR: Negative for leg swelling, hypertension, CHF or changes in her typical palpitations. Has been having chest pain for the past several weeks. Was bad last night but decided not to go to ER. Seems worse with activity and stress. Pain will radiaet into the jaw and arms. Will get nauseated with it and diaphoretic. Last night vomited once. Continues to say it was extremely painful but never had a squad called or derek to ED. GI: No heartburn or reflux symptoms. Has had nausea and vomiting with chest pain. Has had diarrhea in the past 24 hrs and has eased up as the day is going on. : patient has been having dysuria and urine frequency. Says her urine is thick. MUSCULOSKELETAL: see HPI SKIN: Negative for lesions, rash, and itching PSYCH: depression has become worse. Is waiting to get in with [facility]. HEMATOLOGY/LYMPHOLOGY: Negative for prolonged bleeding, bruising easily or swollen nodes ENDOCRINE: Negative for cold or heat intolerance. Sugars have been high with being on the prednisone NEURO: No history of headaches, syncope, paralysis, seizures or tremors. Did have a migraine in th past week which was the first time in several months. EXAM: BP 122/78 Pulse 78 Resp 18 Ht 154.9 cm (5' 1) Wt 105.7 kg (233 lb) BMI 44.02 kg/m? General Appearance: Well appearing, alert, in no acute distress, well-hydrated, well nourished. and Morbidly obese. Skin: Skin color, texture, turgor normal, no suspicious rashes or lesions. Head: Normocephalic, no masses, lesions, tenderness or abnormalities. Eyes: Anicteric sclera. Pupils are equally round and reactive to light. Extraocular movements are intact. . Ears: External ears normal, canals clear. Nose/Sinuses: Nares normal, septum midline, mucosa normal, no drainage or sinus tenderness. Oropharynx: Lips, mucosa, and tongue normal, teeth and gums normal, oropharynx normal. Neck: Supple, no adenopathy; thyroid symmetric, normal size, no bruits. Lungs: Lungs clear to auscultation. No wheezing, rhonchi, rales. Heart: RRR without murmur, gallop, or rubs. No ectopy. Abdomen: Normal abdominal exam, Abdomen soft, non-tender. Bowel sounds normal. No masses, organomegaly. Extremities: No deformities, edema, skin discoloration, Musculoskeletal: Muscular strength intact, No joint swelling, deformity, or tenderness. Peripheral Pulses: Normal. Neurologic: Reflexes normal and symmetric. Sensation to light touch normal in face and upper extremities. Has chronic decreased sensation in the lower extremities that is worse as you get to the feet. Intact. Diabetic Foot Exam: Feet: Shoes and socks removed, normal distal pulses, vibratory exam abscent due to spina bifida and calluses noted left Skin: warm and dry Vascular Pulses: Normal SEMMES-ADRIANA MONOFILAMENT TESTING Left Foot Right Foot Dorsal Surface Absent Dorsal Surface Absent Plantar Surface Absent Plantar Surface Absent . Health Maintenance List DILATED RETINAL EXAM due on 01/25/2018 DIABETIC FOOT EXAM due on 02/21/2018 STATIN MED ADHERENCE due on 03/29/2018 DIABETES MED ADHERENCE due on 03/29/2018 HBA1C due on 05/15/2018 ANNUAL PCP TEAM CHRONIC DISEASE VISIT due on 01/30/2019 LDL CHOLESTEROL due on 02/13/2019 DTAP,TDAP,TD(2 - Td) due on 09/09/2019 PAP EVERY 5 YEARS due on 07/28/2022 HPV EVERY 5 YEARS due on 07/28/2022 ONE PNEUMOVAX PRIOR TO AGE 65 Completed INFLUENZA Completed Data reviewed Component Latest Ref Rng AND Units 10/10/2017 02/13/2018 Protein, Total 6.3 - 8.0 g/dL 7.9 7.2 Albumin 3.9 - 4.9 g/dL 4.2 4.0 Calcium 8.5 - 10.2 mg/dL 9.1 8.8 Bilirubin, Total 0.2 - 1.3 mg/dL 0.3 0.4 Alkaline Phosphatase 32 - 117 U/L 85 67 AST 13 - 35 U/L 44 (H) 44 (H) Glucose 74 - 99 mg/dL 178 (H) 195 (H) BUN 7 - 21 mg/dL 9 7 Creatinine 0.58 - 0.96 mg/dL 0.73 0.70 Sodium 136 - 144 mmol/L 138 138 Potassium 3.7 - 5.1 mmol/L 4.2 4.2 Chloride 97 - 105 mmol/L 101 103 CO2 22 - 30 mmol/L 21 (L) 21 (L) Anion Gap 9 - 18 mmol/L 16 14 ALT 7 - 38 U/L 55 (H) 38 eGFR- >60 >60 eGFR-All Other Races . >60 >60 Color Yellow Yellow Clarity Clear Clear Glucose, Urine Negative mg/dL >=500 (A) Bilirubin, Urine Negative Negative Ketones, Urine Negative Negative Specific [place], Ur 1.005 - 1.030 1.009 Hemoglobin/Blood,Ur Negative Negative pH, Urine 4.5 - 8.0 6.0 Protein, Urine Negative mg/dL Negative Urobilinogen Normal Elevated (A) Nitrites Negative Negative Leukest Negative Negative Comments SEE COMMENT Urine Robbi Comment SEE COMMENT WBC, Urine 0 - 5 /HPF 0-5 RBC, Urine 0 - 3 /HPF 0-3 Epithelial Cells /HPF SEE COMMENT Cholesterol, Total <200 mg/dL 170 150 Triglyceride <150 mg/dL 173 (H) 127 HDL Cholesterol >39 mg/dL 36 (L) 35 (L) LDL Cholesterol <100 mg/dL 99 90 Non HDL Cholesterol <130 mg/dL 134 (H) 115 Fasting Time hrs 17 12 VLDL Cholesterol <30 mg/dL 35 (H) 25 TC:HDL Ratio <5.10 4.72 4.29 LDL:HDL Ratio <2.54 2.75 (H) 2.57 (H) Creatinine, Ur Random (UCRR) 20 - 300 mg/dL 50.7 Albumin, Urine Random 0.0 - 23.0 mg/L 18.0 Albumin/Creat Ratio 0 - 30 mg/g 36 (H) Hemoglobin A1C 4.3 - 5.6 % 8.9 (H) 8.3 (H) Estimated Average Glucose mg/dL 209 192 In office EKG: Showed NSR with non-specific inverted T waves in lead III. This is unchanged from EKG done 05/2017 A/P ASSESSMENT/PLAN: 1. Medicare annual wellness visit, subsequent - ICD9: V70.0, ICD10: Z00.00 (primary diagnosis) - Encouraged monthly Breast Self Exam - Follow up for annual exam in one year. 2. 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 DM (diabetes mellitus), secondary, uncontrolled, w/renal complications (HCC) - ICD9: 249.41, ICD10: E13.29, E13.65 - A above - COMP METABOLIC PANEL - HGB A1C - ALBUMIN/CREAT RATIO RND UR - LIPID PANEL, NONFASTING 5. Diabetic eye exam (HCC) - ICD9: V72.0, 250.00, ICD10: Z01.00, E11.9 - needs to get updated 6. Mixed hyperlipidemia - ICD9: 272.2, ICD10: E78.2 - improved control - Continue current medication. - Encouraged following a low fat, low cholesterol diet. - Discussed the benefits of regular aerobic exercise and weight loss. - Encouraged following a low carbohydrate, healthy oil intake diet. - COMP METABOLIC PANEL - LIPID PANEL, NONFASTING 7. Atypical chest pain - ICD9: 786.59, ICD10: R07.89 - With Hx of non-diagnostic tread mill stress test in 06/2017 and the fact she is having increased weakness and numbness in her legs from her spina bifida and therefore greater risk of falls and injury will need a nuclear non-treadmill stress. - NM CARDIAC PERF STRESS/PHARM - ECG COMPLETE W INTERPRETATION - Is stress test normal and symptoms not improved by the cymbalta will add on PPI. 8. CASTELAN (dyspnea on exertion) - ICD9: 786.09, ICD10: R06.09 Check - NM CARDIAC PERF STRESS/PHARM 9. Migraine without aura and without status migrainosus, not intractable - ICD9: 346.10, ICD10: G43.009 - Stable with no increase in frequency, cont - PROPRANOLOL 10 MG TABLET 10. Paroxysmal SVT (supraventricular tachycardia) (HCC) - ICD9: 427.0, ICD10: I47.1 cont - PROPRANOLOL 10 MG TABLET - ECG COMPLETE W INTERPRETATION 11. Neuropathy (HCC) - ICD9: 355.9, ICD10: G62.9 Cont with neuro who has her on: - PREGABALIN 25 MG CAPSULE 12. Spina bifida with hydrocephalus, unspecified spinal region (HCC) - ICD9: 741.00, ICD10: Q05.4 - cont with neurology 13. Neurogenic bladder - ICD9: 596.54, ICD10: N31.9 - Needs to get back with urology 14. Lipomeningocele (HCC) - ICD9: 741.90, ICD10: Q05.9 - Sounds my be an issue again and neurology is working on getting her into a new neurosurgeon 15. Morbid obesity (HCC) - ICD9: 278.01, ICD10: E66.01 - Patient to work better on weight management 16. Neurogenic bowel - ICD9: 564.81, ICD10: K59.2 - Chronic 17. Hydronephrosis, right - ICD9: 591, ICD10: N13.30 - Needs to return to urology 18. Chronic pain syndrome - ICD9: 338.4, ICD10: G89.4 cont - PREGABALIN 25 MG CAPSULE per neurology 19. Primary insomnia - ICD9: 307.42, ICD10: F51.01 - Recent stressors have affected her ability to fall asleep as well as she had been. 20. Dysthymic disorder - ICD9: 300.4, ICD10: F34.1 - Needs to get [facility] - Will increase her cymbalta to 60 mg a day 21. Anxiety - ICD9: 300.00, ICD10: F41.9 - As above 22. Panic attacks - ICD9: 300.01, ICD10: F41.0 - As above 23. Dysuria - ICD9: 788.1, ICD10: R30.0 - Urine was normal in appearance - UA DIP B/O was normal except for blood and is on her menstrual cycle 24. History of recurrent UTIs - ICD9: V13.02, ICD10: Z87.440 - Needs to return to urology - UA DIP B/O Pending Prescriptions Disp Refills ATORVASTATIN 10 MG TABLET 90 tablet 1 Sig: Take 1 tablet by mouth once daily. CODIE: No GLIMEPIRIDE 4 MG TABLET 30 tablet 5 Sig: Take 1 tablet by mouth daily with breakfast. CODIE: No DULOXETINE 60 MG CAPSULE,DELAYED RELEASE 90 capsule 1 Sig: Take 1 capsule by mouth once daily. CODIE: No LISINOPRIL 2.5 MG TABLET 90 tablet 1 Sig: Take 1 tablet by mouth once daily. CODIE: No METFORMIN ER 500 MG TABLET,EXTENDED RELEASE 24 HR 360 tablet 1 Sig: Take 2 tablets by mouth twice daily. CODIE: No PROPRANOLOL 10 MG TABLET 180 tablet 1 Sig: Take 1 tablet by mouth twice daily. CODIE: No Signed Prescriptions Disp Refills regadenoson (LEXISCAN) 0.4 mg/5 mL syrg 5 mL 0 Sig: Inject 5 mL intravenously one time only for 1 dose. Give IV push over 10 seconds and follow with 5 ml of normal saline F/u Netta in 5 weeks for anxiety/depression chest pain. F/u with me in 4 months routine MD Will Sinha MD 02/28/2018 8:35 PM Signed Please get fasting labs on or after 06/22/2018 prior to next visit. 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) [E11.29, R80.9] DM (diabetes mellitus), secondary, uncontrolled, w/renal complications (HCC) [E13.29, E13.65] Diabetic eye exam (HCC) [Z01.00, E11.9] Mixed hyperlipidemia [E78.2] Atypical chest pain [R07.89] CASTELAN (dyspnea on exertion) [R06.09] Migraine without aura and without status migrainosus, not intractable [G43.009] Paroxysmal SVT (supraventricular tachycardia) (HCC) [I47.1] Neuropathy (HCC) [G62.9] Spina bifida with hydrocephalus, unspecified spinal region (HCC) [Q05.4] Neurogenic bladder [N31.9] Lipomeningocele (HCC) [Q05.9] Morbid obesity (HCC) [E66.01] Neurogenic bowel [K59.2] Hydronephrosis, right [N13.30] Chronic pain syndrome [G89.4] Primary insomnia [F51.01] Dysthymic disorder [F34.1] Anxiety [F41.9] Panic attacks [F41.0] Dysuria [R30.0] History of recurrent UTIs [Z87.440] Order(s):atorvastatin (LIPITOR) 10 mg tabletTake 1 tablet by mouth once daily.Disp: 90 tabletRfl: 1 glimepiride (AMARYL) 4 mg tabletTake 1 tablet by mouth daily with breakfast.Disp: 30 tabletRfl: 5 DULoxetine (CYMBALTA) 60 mg capsuleTake 1 capsule by mouth once daily.Disp: 90 capsuleRfl: 1 lisinopril 2.5 mg tabletTake 1 tablet by mouth once daily.Disp: 90 tabletRfl: 1 metFORMIN ER (GLUCOPHAGE XR) 500 mg 24 hr tabletTake 2 tablets by mouth twice daily.Disp: 360 tabletRfl: 1 propranolol (INDERAL) 10 mg tabletTake 1 tablet by mouth twice daily.Disp: 180 tabletRfl: 1 CONSULT TO AMBULATORY CLINIC PHARMACY [19990804] Order #: [id number]: 1 NM CARDIAC PERF STRESS/PHARM [4940325] Order #: [id number] IV START - SPECIFY [9250145] Order #: [id number]: 1 IV DISCONTINUE [2169989] Order #: [id number]: 1 regadenoson (LEXISCAN) 0.4 mg/5 mL syrgInject 5 mL intravenously one time only for 1 dose. Give IV push over 10 seconds and follow with 5 ml of normal salineDisp: 5 mLRfl: 0 UA DIP B/O [2061438] Order #: [id number] COMP METABOLIC PANEL [SQCMP] Order #: [id number] FUTURE HGB A1C [COLMM0P] Order #: [id number] FUTURE ALBUMIN/CREAT RATIO RND UR [SQUACR] Order #: [id number] FUTURE LIPID PANEL, NONFASTING [SQLIPNF] Order #: [id number] FUTURE ECG COMPLETE W INTERPRETATION [ECG01] Order #: [id number] FUTURE Prescriptions as of 02/28/2018 Sig: ATORVASTATIN 10 MG TABLET Take 1 tablet by mouth once d* GLIMEPIRIDE 4 MG TABLET Take 1 tablet by mouth daily * DULOXETINE 60 MG CAPSULE,SHERRY* Take 1 capsule by mouth once * LISINOPRIL 2.5 MG TABLET Take 1 tablet by mouth once d* METFORMIN ER 500 MG TABLET,EX* Take 2 tablets by mouth twice* PROPRANOLOL 10 MG TABLET Take 1 tablet by mouth twice * FLUTICASONE 50 MCG/ACTUATION * Use 2 Sprays in each nostril * LORATADINE 10 MG TABLET Take 1 tablet by mouth once d* PSEUDOEPHEDRINE 30 MG CAPSULE* Take 1-2 tablets by mouth sarah* ZOLPIDEM 10 MG TABLET Take 1 tablet by mouth as nee* POLYETHYLENE GLYCOL 3350 17 G* Take 17 g by mouth once daily. OXYBUTYNIN CHLORIDE ER 10 MG * Take 1 tablet by mouth once d* HYDROXYZINE PAMOATE 25 MG CAP* Take 1 capsule by mouth three* PREGABALIN 25 MG CAPSULE Take 1 capsule by mouth once * REGADENOSON 0.4 MG/5 ML INTRA* Inject 5 mL intravenously one* BLOOD-GLUCOSE METER Dispense 1 meter kit. Dx: Ot* LANCETS Test blood sugar 2 times/day* BLOOD SUGAR DIAGNOSTIC STRIPS Test blood sugar(s) 2 times d* COMPOUNDED PRESCRIPTION Stoma catheter tube. DX: Qo5* Problem List As Of Date 02/28/2018 Noted Resolved Threatened , antepartum [O20.0] INVALID FOR*04/07/2011 Supervision of normal first [Z34.00] INVALID FOR*04/07/2011 Cyst of ovary [N83.209] INVALID FOR* Priority: C Depressive disorder, not elsewhere classified [*INVALID FOR*01/06/2016 Priority: A More... Anxiety [F41.9] INVALID FOR* Priority: A More... Dysthymic disorder [F34.1] Priority: A More... Panic attacks [F41.0] Priority: A Neck pain [M54.2] INVALID FOR* Priority: M Cervical radiculopathy [M54.12] INVALID FOR* Priority: M Weakness of both upper extremities [R29.898] INVALID FOR* Priority: M More... Muscle weakness of lower extremity [M62.81] INVALID FOR* Priority: M More... 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 Morbid obesity (HCC) [E66.01] INVALID FOR* Priority: B Chronic pain [G89.29] INVALID FOR* Priority: M Neurogenic bladder [N31.9] INVALID FOR* Priority: B Hydronephrosis, right [N13.30] INVALID FOR* Priority: C History of kidney stones [Z87.442] INVALID FOR* Priority: C Spina bifida (HCC) [Q05.9] INVALID FOR* Priority: B More... Neurogenic bowel [K59.2] INVALID FOR* Priority: B Primary insomnia [F51.01] INVALID FOR* Priority: A 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)*INVALID FOR* Priority: A Pyelonephritis [N12] INVALID FOR* Diabetic eye exam (HCC) [Z01.00, E11.9] INVALID FOR* Priority: A More... Migraine without aura and without status migrai*INVALID FOR*02/28/2018 Priority: A 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)*INVALID FOR* Priority: A Well adult exam [Z00.00] INVALID FOR* Priority: E More... Paroxysmal SVT (supraventricular tachycardia) (*INVALID FOR* Priority: A More... DM (diabetes mellitus), secondary, uncontrolled*INVALID FOR* Priority: A S/P hernia repair [Z98.890, Z87.19] INVALID FOR* Thyroid cyst [E04.1] INVALID FOR* Priority: A More... Migraine without aura and without status migrai*INVALID FOR* Priority: A Medicare annual wellness visit, subsequent [Z00*INVALID FOR* Priority: E More... Mixed hyperlipidemia [E78.2] INVALID FOR* Priority: A History of recurrent UTIs [Z87.440] INVALID FOR* Priority: C Other instructions from your clinician: Please get fasting labs on or after 06/22/2018 prior to next visit. Prescriptions ordered this encounter Disp Refills Start End ATORVASTATIN 10 MG TABLET 90 t* 1 02/28/2018 Route: ORAL Sig: Take 1 tablet by mouth once daily. GLIMEPIRIDE 4 MG TABLET 30 t* 5 02/28/2018 Route: ORAL Sig: Take 1 tablet by mouth daily with breakfast. DULOXETINE 60 MG CAPSULE,DELAYED REL* 90 c* 1 02/28/2018 Route: ORAL Sig: Take 1 capsule by mouth once daily. LISINOPRIL 2.5 MG TABLET 90 t* 1 02/28/2018 Route: ORAL Sig: Take 1 tablet by mouth once daily. METFORMIN ER 500 MG TABLET,EXTENDED * 360 * 1 02/28/2018 Route: ORAL Sig: Take 2 tablets by mouth twice daily. PROPRANOLOL 10 MG TABLET 180 * 1 02/28/2018 Route: ORAL Sig: Take 1 tablet by mouth twice daily. REGADENOSON 0.4 MG/5 ML INTRAVENOUS * 5 mL 0 02/28/2018 02/28/2018 Class: In Office Route: INTRAVENOUS Sig: Inject 5 mL intravenously one time only for 1 dose. Give IV push over 10 seconds and follow with 5 ml of normal saline Medications Discontinued During This Encounter gabapentin (NEURONTIN) 300 mg capsule 02/12/2015 02/28/2018 Class: Med Update Route: ORAL Sig: Take 1 capsule by mouth three times daily. Disc: Course of therapy completed ibuprofen (MOTRIN) 600 mg tablet 30 t* 0 01/02/2018 02/28/2018 Route: ORAL Sig: Take 1 tablet by mouth every 6 hours as needed for Pain for up to 10 days. Disc: Discontinued by another Health Care Provider oxyCODONE-acetaminophen (PERCOCET) 5* 30 t* 0 01/02/2018 02/28/2018 Class: Print RX Route: ORAL Sig: Take 1 tablet by mouth every 4 hours as needed for Pain for up to 7 days. Disc: Course of therapy completed atorvastatin (LIPITOR) 10 mg tablet 30 t* 5 10/25/2017 02/28/2018 Route: ORAL Sig: Take 1 tablet by mouth once daily. Disc: Reason for discontinue is not on file. glimepiride (AMARYL) 4 mg tablet 30 t* 5 10/25/2017 02/28/2018 Route: ORAL Sig: Take 1 tablet by mouth daily with breakfast. Disc: Reason for discontinue is not on file. DULoxetine (CYMBALTA) 30 mg capsule 30 c* 5 06/23/2017 02/28/2018 Route: ORAL Sig: Take 1 capsule by mouth once daily. Disc: Reason for discontinue is not on file. lisinopril 2.5 mg tablet 30 t* 11 10/18/2016 02/28/2018 Route: ORAL Sig: Take 1 tablet by mouth once daily. Disc: Reason for discontinue is not on file. metFORMIN ER (GLUCOPHAGE XR) 500 mg * 120 * 5 06/23/2017 02/28/2018 Route: ORAL Sig: Take 2 tablets by mouth twice daily. Disc: Reason for discontinue is not on file. propranolol (INDERAL) 10 mg tablet 60 t* 5 07/03/2017 02/28/2018 Route: ORAL Sig: Take 1 tablet by mouth twice daily. Disc: Reason for discontinue is not on file. Disposition: Return in about 5 weeks (around 04/04/2018) for f/u depression/anxiety/chest pain with Netta. Follow-up and Disposition History Recorded Encounter Status:Closed by WILL DIETZ on 02/28/18 EMERGENCY DEPARTMENT Observed: 02/26/2018 Status: F Source: [place] SUMMARY 2:47 AM [facility] REPOSITORY [facility] Medical Records Department [address] [place] [address] Emergency Department Summary 02/25/18 2249 MR#: [id number] Acct: [id number] Name: DEBBY BAILON Rep #: [id number] : 1980 37 From: Nemesio Sanderson DO PCP: Will Dietz MD Status: REG ER - ER Visit Summary Date of Service: 02/25/18 Chief Complaint: Numbness History of Present Illness: The patient is a 37 F who states that she went to get a hug tonight and the person hugging her caused her to fall hitting the area in her low back where she has had spina bifida surgery. She states she went numb from the neck down and cannot move from the neck down. She denies any difficulty breathing. She has not lost control of her bowel or bladder. She states that this is happened before and has resolved with rest. This was not going away so she came to the emergency department. Physical Examination: Afebrile vital signs are stable Gen: Well-nourished well-developed obese Head: Normocephalic atraumatic Eyes: Perrl EOMI ENT: TMs clear no rhinorrhea moist mucous membranes Neck: Supple no lymphadenopathy no JVD nontender CVS: Regular rate rhythm no murmurs normal S1-S2 Respiratory: No distress clear to auscultation bilaterally chest nontender Abdomen: Soft nontender nondistended normal bowel sounds no masses Back: Nontender Extremity: Nontender no edema Skin: Normal color no rash Neuro: alert orientated 3 CN II-XII intact Psych: Normal affect normal mood Test Results: BMP was normal Emergency Department Course and Treatment: Patient is not incontinent of urine or stool. She is breathing normally. She claims to be unable to move. I asked her to set up her significant other helps lift her up and observe her tighten her lower extremity muscles and keep her leg straight as they start to rise up off the bed. Her core musculature was felt to be bo. BMP is negative. Patient was observed. The patient was moving her legs during her sleep as noted for her . She states that she is ready to go as her needs to be at work in a couple hours. I think this is supratentorial in nature. She will be discharged home Impression: 1. Somatoform disorder This note was generated with EverTune dictation software. It may contain incorrect words, spelling, and punctuation that were not noted in review of the chart prior to signing ED Disposition - Plan for ED Patient: Disposition: Home or Assisted Living Chief Complaint: Neuro S/Sx Instructions: ED Paraesthesias Referrals: Will Dietz MD [Primary Care Provider] - As Needed What to do if you have Problems For any increased pain, shortness of breath, bleeding, nausea or vomiting, chest pain, or any unexpected problems, contact your Primary Care Provider. Call [facility] ([phone]) or report to the closest Emergency Room. Call 911 if necessary. 02/26/18 0247 <Electronically signed by Nemesio Sanderson DO> Date Nemesio Sanderson DO Cosigner Signature (If Indicated): Date CC: Will Dietz MD BASIC METABOLIC Collected: 02/25/2018 Status: F Source: [facility] PROFILE ([facility]) 10:40 PM [facility] REPOSITORY TYPE CODE TESTS RESULT OUT OF RANGE REFERENCE UNITS LAB L501.0100 74-106 mg/dL High GLU 157 Result Comment: Fasting Glucose result greater than or equal to 126 mg/dL suggests DIABETES MELLITUS per A.D.A. criteria. Please note revised GLUCOSE reference range effective 2017. LAB L501.1000 7-18 mg/dL Normal BUN 9 LAB L501.1100 0.55-1.02 mg/dL Normal CREAT,SERUM 0.91 Result Comment: The validity of the calculated GFR AND GFRAA in patients over 70 years has not been determined. Clinical correlation is essential. LAB L501.1110 >60 mL/min Normal EST GFR 74 Result Comment: Non- GFR Calc LAB L501.1115 >60 mL/min Normal EST GFR - AA 90 Result Comment: GFR Calc LAB L501.1255 ml/min Normal Estimated CRCL 67.60 LAB L501.1300 10-20 RATIO Low BUN/CRE 9.9 LAB L501.2200 8.5-10 mg/dL Normal .1 CA 8.8 LAB L501.5300 136-14 mmol/L Low 5 NA 135 LAB L501.5600 3.5-5. mmol/L Normal 1 K 3.7 LAB L501.5900 98-107 mmol/L Normal CL 104 LAB L501.6100 21.0-3 mmol/L Normal 2.0 CO2 24.0 LAB L501.6200 5-15 Normal GAP 7 Performed By: #### L500.2500 #### [facility] [address] [place], [address] 12 LEAD ELECTROCARDIOGRAM Observed: 02/21/2018 Status: F Source: PATRIOT 8:36 AM [facility] REPOSITORY [facility] Cardiovascular Services [address] [place] [address] 12 Lead EKG 02/16/18 0940 MR#: [id number] Acct: [id number] Name: DEBBY BAILON Rep #: [id number] : 1980 37 From: Rojas Oates MD Attending Dr: Status: DEP ER Ordering Dr: Patrice Shaw MD Date: 02/16/18 Location: ED Sex: F C Admitted: Test Reason : CP Blood Pressure : / mmHG Vent. Rate : 078 BPM Atrial Rate : 078 BPM P-R Int : 140 ms QRS Dur : 078 ms QT Int : 392 ms P-R-T Axes : 032 059 028 degrees QTc Int : 446 ms Normal sinus rhythm Normal ECG Confirmed by ROJAS OATES MD ([id number]), editorial specialist LYLA HAY ([id number]) on 02/21/2018 8:35:57 AM Referred By: Celine Fung Confirmed By:ROJAS OATES MD 02/21/18 0835 Date Rojas Oates MD CC: Josue Shaw MD; Will Dietz MD Signed EMERGENCY DEPARTMENT Observed: 02/16/2018 Status: F Source: NORMA SUMMARY 12:13 PM [facility] REPOSITORY [facility] Medical Records Department [address] [place] [address] Emergency Department Summary 02/16/18 1209 MR#: [id number] Acct: [id number] Name: DEBBY BAILON Rep #: [id number] : 1980 37 From: Patrice Shaw MD PCP: Will Dietz MD Status: REG ER - ER Visit Summary Date of Service: 02/16/18 Chief Complaint: Allergic reaction History of Present Illness: The patient is a 37 F presenting with concern for allergic reaction. She recently started taking Sudafed as well as Lyrica. When she took them this morning, approximately 5 minutes later she started feeling short of breath and itchy all over. She was nauseated and felt anxious as well. She also has a history of panic attacks so thought that this could possibly be a panic attack. She did not have chest pain or leg pain. She denies recent travel or mobilization. She denies any other changes in medications recently. Physical Examination: Vitals are within normal limits. Pulse ox is 100%. She is not tachycardic or tachypneic. Not in distress. No lip or tongue swelling. No uvular edema. Voice is normal. No stridor. Lungs are clear bilaterally. Abdomen is soft and nontender. No focal or lateralizing neuro findings. No tenderness along the lower extremity venous system, palpable cords, or other evidence of DVT. Normal mental status examination. No suicidal thoughts or ideation. Test Results: CBC and chemistries are both normal except for glucose of 207. HCG negative. Two-view chest x-ray negative. Emergency Department Course and Treatment: She was given IV fluids and Benadryl. She was observed for multiple hours and continued to feel better. On my most recent reexamination at 12 PM, she is completely a symptomatically. Pulse ox remains 100% on room air. No clinical evidence of DVT or pleuritic chest pain to suggest pulmonary embolism. No rash. The exact cause of her symptoms are not clear but she feels strongly that this is an allergic reaction to the Sudafed. To be safe, I asked her to stop taking this medication and follow-up closely with her doctor. At this point appears that she can be safely discharged home and I asked her to return or call 911 if she has any recurrence of symptoms. Treatment Plan: Follow up closely with her doctor Disposition: Home stable condition Impression: Initial encounter allergic reaction to medication This note was generated with EverTune dictation software. It may contain incorrect words, spelling, and punctuation that were not noted in review of the chart prior to signing ED Disposition - Plan for ED Patient: Chief Complaint: Allergic Reaction Instructions: ED Drug React Allergic Referrals: Will Dietz MD [Primary Care Provider] - As soon as possible What to do if you have Problems For any increased pain, shortness of breath, bleeding, nausea or vomiting, chest pain, or any unexpected problems, contact your Primary Care Provider. Call [facility] ([phone]) or report to the closest Emergency Room. Call 911 if necessary. 02/16/18 1213 <Electronically signed by Patrice Shaw MD> Date Patrice Shaw MD Cosigner Signature (If Indicated): Date CC: Will Dietz MD CHEST PA AND LATERAL Observed: 02/16/2018 Status: F Source: [place] 9:57 AM [facility] REPOSITORY [facility] Imaging Services [address] [place] [address] Chest PA and Lateral MR#: [id number] Acct: [id number] Name: DEBBY BAILON Rep #: [id number] : 1980 F 37 From: Stephan Sood MD PCP: Will Dietz MD Status: REG ER Study: Chest PA and Lateral Date of Exam: 02/16/18 Exam# [id number] Ordering Dr: Patrice Shaw MD STUDY: X-RAY CHEST REASON FOR EXAM: Female, 37 years old. Cough. TECHNIQUE: PA and lateral views of the chest. COMPARISON: Comparison is made with prior study dated December 16, 2017. FINDINGS: EKG electrodes are seen. Focal linear density in the left lung base suggestive of atelectasis. There is no demonstrated pleural abnormality. Normal size heart. Normal mediastinum and cristiano. Normal visualized pulmonary arteries. Normal visualized aortic arch and descending thoracic aorta. Normal visualized thoracic spine. Normal visualized ribs, clavicles, and shoulders. There is no demonstrated abnormality of the visualized soft tissue structures of the upper abdomen. RAD/Chest PA and Lateral IMPRESSION: Findings suggestive of atelectasis at the left lung base. Electronically Signed: Stephan Sood MD at 11:40 EDT Tel [phone], Service support , CC: Josue Shaw MD; Will Dietz MD Paper Rewinder Operator: Signed CBC W/DIFF, AUTOMATED Collected: 02/16/2018 Status: F Source: [place] 9:45 AM [facility] REPOSITORY TYPE CODE TESTS RESULT OUT OF RANGE REFERENCE UNITS LAB L100.1000 4.4-11.0 K/mm3 Normal WBC 10.4 LAB L100.1200 4.2-5.4 M/mm3 Low RBC 3.86 LAB L100.1300 12.0-15.0 g/dl Low HGB 11.6 LAB L100.1400 37-47 % Low HCT 35.1 LAB L100.1500 81-99 fL Normal MCV 90.9 LAB L100.1600 27.0-32.0 pg Normal MCH 30.1 LAB L100.1700 32-36 g/gl Normal MCHC 33.0 LAB L100.1810 11.6-14.6 % Normal RDW CV 14.4 LAB L100.1820 35.1-43.9 fl High RDW SD 47.1 LAB L100.1900 150-450 K/mm3 Normal PLT 197 LAB L100.2000 6.2-12.0 fl Normal MPV 10.5 LAB L100.2100 47-70 % Normal NEUT% 69.4 LAB L100.2200 19-41 % Low LY% 17.3 LAB L100.2300 0-10 % Normal MONO% 8.8 LAB L100.2400 0-5 % Normal EO% 3.4 LAB L100.2500 0-1 % Normal BASO% 0.4 LAB L100.2550 0.0-0.9 % Normal IM GRAN % 0.700 Result Comment: IG% - Immature Granulocytes (promyelocytes, myelocytes and metamyelocytes) > 1% indicates that a LEFT SHIFT is Present. LAB L100.2620 2.0-7.7 X10 3/uL Normal Absolute Neut 7.2 LAB L100.2720 0.83-4.51 X10 3/ul Normal Absolute Lymph 1.80 Performed By: #### L100.0100 #### [facility] [address] [place], [address] BASIC METABOLIC Collected: 02/16/2018 Status: F Source: [place]OT PROFILE ([facility]) 9:45 AM [facility] REPOSITORY TYPE CODE TESTS RESULT OUT OF RANGE REFERENCE UNITS LAB L501.0100 74-106 mg/dL High GLU 207 Result Comment: Glucose result greater than or equal to 200 mg/dL suggests DIABETES MELLITUS per A.D.A. criteria. Please note revised GLUCOSE reference range effective 2017. LAB L501.1000 7-18 mg/dL Normal BUN 9 LAB L501.1100 0.55-1.02 mg/dL Normal CREAT,SERUM 0.91 Result Comment: The validity of the calculated GFR AND GFRAA in patients over 70 years has not been determined. Clinical correlation is essential. LAB L501.1110 >60 mL/min Normal EST GFR 74 Result Comment: Non- GFR Calc LAB L501.1115 >60 mL/min Normal EST GFR - AA 90 Result Comment: GFR Calc LAB L501.1255 ml/min Normal Estimated CRCL 67.60 LAB L501.1300 10-20 RATIO Low BUN/CRE 9.9 LAB L501.2200 8.5-10 mg/dL Normal .1 CA 8.5 LAB L501.5300 136-14 mmol/L Normal 5 NA 138 LAB L501.5600 3.5-5. mmol/L Normal 1 K 3.9 LAB L501.5900 98-107 mmol/L Normal CL 106 LAB L501.6100 21.0-3 mmol/L Normal 2.0 CO2 23.0 LAB L501.6200 5-15 Normal GAP 9 Performed By: #### L500.2500 #### [facility] [address] [place], [address] ,SERUM,HCG QUALI. Collected: Status: F Source: PATRIOT 02/16/2018 9:45 AM [facility] REPOSITORY TYPE CODE TESTS RESULT OUT OF REFERENCE UNITS RANGE LAB L700.6700 =>Qualitative mIU/mL Normal HCG Qual < 1 triggr LAB L700.7000 0-9 Nonpreg Negative Normal HCGSQUAL NEGATIVE Performed By: #### L700.6800 #### [facility] [address] [place] [place], [address] DISCHARGE INSTRUCTION Observed: 02/14/2018 Status: F Source: PATRIOT 4:38 PM [facility] REPOSITORY [facility] Medical Records Department [address] [place] [address] Discharge Instruction 02/14/18 1637 MR#: [id number] Acct: [id number] Name: DEBBY BAILON Rep #: [id number] : 1980 37 From: Irvin Goldberg DO PCP: Will Dietz MD Status: REG ER ED Disposition - Plan for ED Patient: Chief Complaint: Headache Instructions: ED Headache Migraine, ED Cephalgia Unspecified Referrals: Will Dietz MD [Primary Care Provider] - Additional Instructions: see Dr. Calix in 3-5 days What to do if you have Problems For any increased pain, shortness of breath, bleeding, nausea or vomiting, chest pain, or any unexpected problems, contact your Primary Care Provider. Call [facility] ([phone]) or report to the closest Emergency Room. Call 911 if necessary. 02/14/18 1638 <Electronically signed by Irvin Goldberg DO> Date Irvin Goldberg DO Cosigner Signature (If Indicated): Date CC: Will Dietz MD EMERGENCY DEPARTMENT Observed: 02/14/2018 Status: F Source: PATRIOT SUMMARY 4:37 PM [facility] REPOSITORY [facility] Medical Records Department [address] [place] [address] Emergency Department Summary 02/14/18 1632 MR#: [id number] Acct: [id number] Name: DEBBY BAILON Rep #: [id number] : 1980 37 From: Irvin Goldberg DO PCP: Will Dietz MD Status: REG ER - ER Visit Summary Date of Service: 02/14/18 Chief Complaint: [Headache] History of Present Illness: The patient is a 37 F [presents the emergency department with a headache that started 6 days ago.] Patient describes it as throbbing and pressure to the back of her head. Patient rates the pain as a 10 out of 10. Patient has had a history of migraines in the past but she has never had one that has lasted this long. Patient does complain of nausea and photophobia. Patient denies any falls or head injuries. She denies recent illness. She does describe some urinary frequency which is not unusual for her. Patient does have a history of spina bifida and she does see Dr. Oc Calix for neurology. Physical Examination: [HEENT-PERRLA, EOMI. Cranial nerves II through XII grossly intact. TMs clear. Mucous membranes moist. No adenopathy. Cardiovascular-regular rate and rhythm without murmur or ectopy Lungs-clear to auscultation, chest wall stable without crepitus or subcu emphysema Abdomen-normoactive bowel sounds, soft, nontender, no rebound or rigidity, no peritoneal signs. Neuro fckd-suootf-xexk and heel mcdonald testing within normal limits, negative Romberg, negative pronator drift, fundi benign Extremities-intact 4, normal range of motion, normal pulses, atraumatic] Test Results: [CT scan of the brain without contrast obtained was normal. Urinalysis was normal. HCG was negative.] Emergency Department Course and Treatment: [Patient initially was medicated with a liter normal same fluid bolus and given Reglan, Benadryl, and Toradol. Her symptoms did not improve much with this. Patient was given Nubain 10 mg IV. She did have some pain relief with this and currently rates her pain an 8 out of 10. I offered to further medicate the patient however she would prefer to just go home and try to sleep to see if that resolves her headache. Patient states that she has a follow-up appointment coming up with neurology.] Treatment Plan: [Low up with neurologist.] Disposition: [Discharged home in stable condition] Impression: [Headache-suspect migraine] This note was generated with EverTune dictation software. It may contain incorrect words, spelling, and punctuation that were not noted in review of the chart prior to signing ED Disposition - Plan for ED Patient: Chief Complaint: Headache Referrals: Will Dietz MD [Primary Care Provider] - What to do if you have Problems For any increased pain, shortness of breath, bleeding, nausea or vomiting, chest pain, or any unexpected problems, contact your Primary Care Provider. Call [facility] ([phone]) or report to the closest Emergency Room. Call 911 if necessary. 02/14/18 3028 <Electronically signed by Irvin Goldberg DO> Date Irvin Goldberg DO Cosigner Signature (If Indicated): Date CC: Will Dietz MD BRAIN/HEAD WITHOUT Observed: 02/14/2018 Status: F Source: PATRIOT CONTRAST 3:19 PM [facility] REPOSITORY [facility] Imaging Services [address] [place] [address] Brain/Head without Contrast MR#: [id number] Acct: [id number] Name: DEBBY BAILON Rep #: [id number] : 1980 F 37 From: José Luis Birmingham DO PCP: Will Dietz MD Status: REG ER Study: Brain/Head without Contrast Date of Exam: 02/14/18 Exam# [id number] Ordering Dr: Irvin Goldberg DO STUDY: CT BRAIN WITHOUT CONTRAST REASON FOR EXAM: Female, 37 years old. Headache. Migraines. RADIATION DOSAGE (If Supplied By Facility): CTDIvol = ( 44.99 ) mGy, DLP = ( 711.75 ) mGycm TECHNIQUE: Transaxial CT imaging of the brain was performed without administration of intravenous contrast material. Individualized dose optimization techniques were used for this CT. COMPARISON: April 15, 2015. FINDINGS: There is a calcification in subcutaneous tissues over the right lateral face thought to represent calcified sebaceous cyst. The soft tissues are otherwise unremarkable. Normal calvarium. Normal size ventricles and extra-axial spaces for the patient's age. Normal white matter tracts of the cerebral hemispheres. Normal basal ganglia and thalami. Normal brainstem. Normal cerebellum. There is no intracranial hemorrhage. There are no findings of an acute ischemic infarction. Normal visualized paranasal sinuses. CT/Brain/Head without Contrast IMPRESSION: No acute intracranial or calvarial abnormality or major interval change. Electronically Signed: José Luis Birmingham DO at 16:26 EDT Tel [phone], Service support , CC: Will Dietz MD; Irvin Goldberg DO Paper Rewinder Operator: Signed URINALYSIS, COMPLETE Collected: 02/14/2018 Status: F Source: NORMA 1:20 PM [facility] REPOSITORY Order Comment: Has pt arrived? Y How was Urine Obtained? CLEAN CATCH TYPE CODE TESTS RESULT OUT OF RANGE REFERENCE UNITS LAB L400.3000 Yellow COLOR Normal Straw LAB L400.3050 Clear Normal CLARITY Clear LAB L400.3200 Normal mg/dl High GLUCOSE, UR 250 LAB L400.3300 Negative mg/dL Normal BILIRUBIN URINE Negative LAB L400.3400 Negative mg/dl Normal KETONE UR Negative LAB L400.3465 1.002-1.030 Normal SP.GR. DIPSTX 1.010 LAB L400.3550 5.0 - 8.0 pH UR Normal 7.0 LAB L400.3600 Negative mg/dl PROT Normal DIPSTX Negative LAB L400.3700 Normal mg/dl Normal UROBILI Normal LAB L400.3750 Negative Normal NITRITE UR Negative LAB L400.3780 Negative /ul Normal OCCULT BLOOD-UR Negative LAB L400.3800 Negative /ul LEUK Normal ESTERASE Negative LAB L400.4050 0-5 /hpf WBC 0 Normal SEEN LAB L400.4100 0-5 /hpf 0 Normal RBC-UA SEEN LAB L400.4150 5-10 /hpf SQUAM 0 Normal EPI SEEN LAB L400.4300 None Seen /hpf 0 Normal BACTERIA SEEN LAB L400.4350 <or=2+ /hpf 0 Normal MUCUS, URINE SEEN Performed By: #### L400.0001 #### [facility] [address] [place] [place], [address] ,SERUM,HCG QUALI. Collected: Status: F Source: NORMA 02/14/2018 1:20 PM [facility] REPOSITORY TYPE CODE TESTS RESULT OUT OF REFERENCE UNITS RANGE LAB L700.7000 0-9 Nonpreg Negative Normal HCGSQUAL NEGATIVE LAB L700.6700 =>Qualitative mIU/mL Normal HCG Qual < 1 triggr Performed By: #### L700.6800 #### [facility] [address] [place], [place], [id number] URINALYSIS WITH Collected: 02/13/2018 Status: F [facility] 9:58 AM [facility] [place] REPOSITORY TYPE CODE TESTS RESULT OUT OF RANGE REFERENCE UNITS LAB UCOL Yellow Color Yellow LAB [facility] Clear Clarity Clear LAB UGLUC Negative mg/dL Glucose, Abnormal Urine >=500 Alert LAB UBIL Negative Bilirubin, Urine Negative LAB UKET Negative Ketones, Urine Negative LAB USPG 1.005-1.030 Specific [place], Ur 1.009 LAB UHGB Negative Hemoglobin/Blood, Negative Ur LAB UPH 4.5-8.0 pH 6.0 LAB UPROT Negative mg/dL Protein, Urine Negative LAB UUROB Normal Abnormal Urobilinogen Elevated Alert LAB UNITR Negative Nitrites Negative LAB ULKEST Negative Leukest Negative LAB UCOM Comments SEE COMMENT Result Comment: N/A LAB UMCOM Urine SEE Robbi Comment COMMENT Result Comment: N/A LAB UWBC 0-5 /HPF WBC 0-5 LAB URBC 0-3 /HPF RBC 0-3 LAB UEPI /HPF Epithelial SEE Cells COMMENT Result Comment: Few Squamous Epithelial Cells Performed By: #### UAWMIC #### [facility] [address] [place], [place] [address] ALBUMIN/CREAT RATIO Collected: 02/13/2018 Status: F Source: [place] 9:[address] [facility] REPOSITORY TYPE CODE TESTS RESULT OUT OF REFERENCE UNITS RANGE LAB UCRR 20-300 mg/dL Creatinine,Ur 50.7 ine,Ran LAB UALBR 0.0-23.0 mg/L Albumin Urine 18.0 Random LAB UALBCR 0-30 mg/g High Albumin/Creat 36 Ratio Result Comment: 30 to 300 mg/g indicates an increased risk for diabetic nephropathy. Greater than 300 mg/g is consistent with clinical nephropathy. (Am J Kidney Disease 1995, 25:107) Performed By: #### UACR #### [facility] [address], [place] [address] HEMOGLOBIN A1C Collected: 02/13/2018 Status: F Source: [place] 9:[address] [facility] REPOSITORY TYPE CODE TESTS RESULT OUT OF REFERENCE UNITS RANGE LAB HGBA1C 4.3-5.6 % High Hemoglobin A1c 8.3 LAB HBA0 mg/dL Est. Average Glucose 192 Result Comment: eAG: (Estimated average glucose) is a calculated value from HgbA1c and is sales and marketing representative of the average blood glucose level in the last 2-3 month period. Performed By: #### HBA1C, CMP, LIPB #### [facility] [address] [place], [place] [address] COMP METABOLIC PANEL Collected: 02/13/2018 Status: F Source: [place] 9:42 AM [facility] REPOSIT[facility] TYPE CODE TESTS RESULT OUT OF REFERENCE UNITS RANGE LAB TP 6.3-8.0 g/dL Protein, Total 7.2 LAB ALB 3.9-4.9 g/dL Albumin 4.0 LAB CA 8.5-10.2 mg/dL Calcium, Total 8.8 LAB TBIL 0.2-1.3 mg/dL Bilirubin, Total 0.4 LAB ALKP 32-117 U/L Alkaline Phosphatase 67 LAB AST 13-35 U/L AST High 44 Result Comment: Results may be falsely increased due to interference by hemolysis. Suggest reorder as clinically indicated. LAB GLU 74-99 mg/dL High Glucose 195 Result Comment: The [place] Diabetes Association (ADA) provides guidance for cutoff values for fasting glucose and random glucose. The ADA defines fasting as no caloric intake for at least 8 hours. Fas ting plasma glucose results between 100 to 125 mg/dL indicate increased risk for diabetes (prediabetes). Fasting plasma glucose results greater than or equal to 126 mg/dL meet the criteria for diagnosis of diabetes. In the absence of unequivocal hyperglycemia, results should be confirmed by repeat testing. In a patient with classic symptoms of hyperglycemia or hyperglycemic crisis, random plasma glucose results greater than or equal to 200 mg/dL meet the criteria for diagnosis of diabetes. Reference: Standards of Medical Care in Diabetes 2016, [place] Diabetes Association. Diabetes Care. 2016.39(Suppl 1). LAB BUN 7-21 mg/dL BUN 7 LAB CRET 0.58-0.96 mg/dL Creatinine 0.70 LAB NA 136-144 mmol/L Sodium 138 LAB K 3.7-5.1 mmol/L Potassium 4.2 LAB CL 97-105 mmol/L Chloride 103 LAB CO2 22-30 mmol/L CO2 Low 21 LAB AGAP 9-18 mmol/L Anion Gap 14 LAB ALT 7-38 U/L ALT 38 LAB GFRAA eGFR- Amer. >60 LAB GFRNAA . eGFR-All Other Races >60 Result Comment: eGFR (Estimated GFR) Units of measure: mL/min/1.73 meters squared eGFR is derived from the reexpressed MDRD Study equation using the following parameters: serum creatinine, age, gender and race. The creatinine assay has been calibrated to be traceable to IDMS. An eGFR <60 mL/min/1.73m2 for >3 months is consistent with chronic kidney disease. Refer to KDOQI guidelines for clinical interpretation. In patients with unstable renal function, e.g. those with acute kidney injury, the eGFR may not accurately reflect actual GFR. Performed By: #### HBA1C, CMP, LIPB #### [facility] [address] [place], [place] [address] LIPID PANEL, BASIC Collected: 02/13/2018 Status: F Source: [place] 9:[address] [facility] REPOSITORY TYPE CODE TESTS RESULT OUT OF REFERENCE UNITS RANGE LAB CHOL <200 mg/dL Cholesterol 150 Result Comment: <200 mg/dL, Desirable 200-239 mg/dL, Borderline high >239 mg/dL, High LAB TRIGLY <150 mg/dL Triglyceride 127 Result Comment: <150 mg/dL, Normal 150-199 mg/dL, Borderline high 200-499 mg/dL, High >499 mg/dL, Very high LAB HDL >39 mg/dL HDL-Cholesterol Low 35 Result Comment: 40-59 mg/dL, Acceptable >59 mg/dL, High: Negative risk factor for coronary heart disease <40 mg/dL, Low: Positive risk factor for coronary heart disease LAB LDL <100 mg/dL LDL-Cholesterol 90 Result Comment: <100 mg/dL, Optimal 100-129 mg/dL, Near optimal/above optimal 130-159 mg/dL, Borderline high 160-189 mg/dL, High >189 mg/dL, Very high Secondary prevention optimal LDL Cholesterol levels are recommended to be < 70 mg/dL LAB NONHDL <130 mg/dL Non HDL Cholesterol 115 Result Comment: <130 mg/dL, Optimal 130-159 mg/dL, Near optimal/above optimal 160-189 mg/dL, Borderline high 190-219 mg/dL, High >219 mg/dL, Very high Secondary prevention optimal non HDL Cholesterol levels are recommended to be < 100 mg/dL LAB FT hrs Fasting Time 12 LAB VLDL <30 mg/dL VLDL Cholesterol 25 LAB TCHDL <5.10 TC:HDL Ratio 4.29 LAB LDLHDL <2.54 High LDL:HDL Ratio 2.57 Result Comment: Reference: 1. National Cholesterol Education Program ATP III Guideline At-A-Glance Quick Desk Reference: National Heart, Lung, and Blood [place]. National Institutes of Health. 2001: NIH Publication No. 01-3305. 2. An International Atherosclerosis Society position paper: global recommendations for the management of dyslipidemia: executive summary, Atherosclerosis. 2014: 232(2):410-413. Performed By: #### HBA1C, CMP, LIPB #### [facility] [address] [place], [place] [address] INITAL EVALUATION (1) Observed: 02/07/2018 Status: F Source: NORMA - PT 1:00 PM [facility] REPOSITORY [facility] Physical Therapy [facility] [address] [place], [place] [id number] Fax REHABILITATION SERVICES INITIAL EVALUATION MR#: [id number] Acct: [id number] Name: DEBBY BAILON Rep #: [id number] : 1980 37 From: Scott Cho PT, ATC Referring Dr.: MARIO Fung Status: REG RCR Insurance: MEDICARE PART A B MEDICAID Patient's Visit Information DEBBY BAILON is a 37 year old F referred to Physical Therapy by MARIO Lucas with a diagnosis of spina bifida. Date of Evaluation: 02/07/18 Physical Therapist: Scott Cho PT, - Visit Plan Frequency: 2-3x /Week Duration: 4-6 Weeks Plan: B LE strengthening, core strengthening, balance and proprio, gait training, nustep, and HEP - Subjective Subjective: Pt reports she was born with spina bifida, but notes she didnt find out about it until she was 33. Pt notes she has had 2 spinal surgeries since finding out about this. Pt reports she has gradually had numbness over this past 2 years in her L foot first, but now her R foot is becoming more and more numb. Pt reports now she is completely numb in her L leg from mid mcdonald downward, and R lateral foot is completely numb. Pt reports her walking is becoming progressively worse over the past couple years. Pt also notes severe difficulty with stair negotiation. Pt reports she is in pain in her legs and LB at this time. Pt reports sleep difficulty secondary to her leg pain. Pt reports a history of falls x 3 over the past couple years. Pt notes she limits her activty to avoid falls. Pt reports she will use a WC if she has to walk a long distance. - Pain LB and leg pain Pain Intensity (Out of 10): 7 Pain Intensity Range: 10 - Objective Neuro: R and L S1 is numb. L and R L4-5 is hyposensitive to light touch. B L1-2-3 WNL to light touch. B patellar reflex= 2/3. MMT: B hip flex, abd, and add= 5/5. L knee flex and ext 3+/5. R knee flex and ext 4-/5. B ankle DF= 3/5. ROM: B LE's are WFL at this time. Special test: Pt can DLS with eyes open for greater than 30 sec. Pt was able to balance less than 2 sec with EC indicating poor balance with eyes closed. Gait: Pt was able to ambulate 120' I until her L leg became more numb. - Goals Goal 1:: Increase B LE strength x 1/2-1 grade to aid with stair negotiation Goal Time Frame: 4-6 Weeks Goal 2:: Increase core stability x 1 grade to aid with decreasing LBP Goal Time Frame: 4-6 Weeks Goal 3:: Pt will be able to stand for 10 seconds with eyes closed to aid with preventing future falls Goal Time Frame: 4-6 Weeks Goal 4:: Decrease LBP x 1 grade to aid with sleep Goal Time Frame: 4-6 Weeks Goal 5:: I with HEP Goal Time Frame: 4-6 Weeks - Rehabilitation Potential Physical Therapy Diagnosis: Pt has core weakness, LE weakness, decreased balance, and LBP secondary to spina bifida Rehabilitation Potential: Good - Anticipated Interventions Patient/Client Instruction: Educate patient on: Condition, Plan of Care For the Purpose of:: To improve self management Therapeutic Exercise to Include: Strength training, Endurance training, Balance training, Gait and locomotor training, Dynamic Lumbar Stabilization For the Purpose of:: To decrease pain, To improve muscle performance and motor function, To improve ability to perform ADL's Thank you for the opportunity to evaluate your patient. For Medicare and Medicare HMO plans, please review the plan of care and approve it. It will need to be FAXED BACK to us at [phone] for Medicare purposes. Please let me know if there are questions or concerns regarding this plan of care. Physician Signature: Date: <Electronically signed by Scott Cho PT, ATC> 02/07/18 1300 CC: MARIO Fung; Will Dietz MD [facility] Signed For Medicare only, by signing this I certify the plan of care. Physicians Signature Date SURGERY VISIT REPORT Observed: 01/30/2018 Status: F Source: [place] 2:27 PM [facility] REPOSITORY [facility] 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[employer] Installation Required: No Is patient in pain?: No Allergies mushroom Allergy (Verified 01/30/18 14:24) Anaphylaxis peanut Allergy (Verified 01/30/18 14:24) Anaphylaxis Gadolinium-MRI Contrast Medium Adverse Reaction (Verified 01/30/18 14:24) Vomiting Medications Gabapentin 300 mg PO TID 02/14/15 [History Confirmed 01/30/18] Duloxetine Hcl [Cymbalta] 30 mg PO DAILY 10/06/15 [History Confirmed 01/30/18] Metformin(XR) [Glucophage Xr] 1,000 mg PO BID 06/19/16 [History Confirmed 01/30/18] Propranolol HCl 10 mg PO DAILY 07/18/17 [History Confirmed 01/30/18] Atorvastatin Calcium [Lipitor] 10 mg PO QHS 11/07/17 [History Confirmed 01/30/18] Cephalexin [Keflex] 500 mg PO Q6 #28 cap 01/21/18 [Rx Confirmed 01/30/18] Loratadine 10 mg PO DAILY 01/21/18 [History Confirmed 01/30/18] Pseudoephedrine HCl [Sudogest] 30 mg PO Q6H PRN PRN 01/21/18 [History Confirmed 01/30/18] Subjective Details: Patient is status post a ultrasound-guided fine-needle aspiration of her right thyroid gland on 01/23/2018. This came back consistent with a benign cystic colloid nodule and was adequate for evaluation. She is not experiencing any pain or discomfort Objective Details: Neck is supple. There are no hard nodules . There is no lymphadenopathy identified. There is no signs of bruising or cellulitis. Assessment AND Plan Problems 1. Uninodular goiter E04.1 Plan Patient will need to have a repeat ultrasound done next year. If the nodules grow by more than 20% or she develops new nodules that are larger than a centimeter repeat fine-needle aspirations will need to be performed. Coding Level of Care Code Off vis,est,level 2 Diagnoses Uninodular goiter E04.1 01/30/18 1427 <Electronically signed by Nemesio Josue MD> Date Nemesio Josue MD Cosigner Signature: Date (if applicable) CC: Will Dietz MD EMERGENCY DEPARTMENT Observed: 01/30/2018 Status: F Source: [place] SUMMARY 1:41 PM [facility] REPOSITORY [facility] Medical Records Department [address] [place] [address] Emergency Department Summary 01/30/18 1338 MR#: [id number] Acct: [id number] Name: DEBBY BAILON Rep #: [id number] : 1980 37 From: Jayson Yost MD PCP: Will Dietz MD Status: REG ER - ER Visit Summary Date of Service: 01/30/18 Chief Complaint: Urinary tract infection History of Present Illness: The patient is a 37 F with similar symptoms with prior urinary tract infections, apparently she was treated recently with Keflex. She still has some suprapubic pain. She had an unremarkable CT and from my interpretation of the past urinalysis is that it was normal. She has no other symptoms today. Not appear in acute distress. Moist mucous membranes, no obvious facial deformity No C-spine tenderness supple neck. Regular rate and rhythm without any obvious murmurs Clear lungs bilaterally speaking in full sentences without any obvious respiratory distress Abdomen soft slight suprapubic pain no guarding or rebound Moves all extremities without any difficulty or pain. Skin does not show any obvious rashes or lesions, no trauma. Alert oriented 3 with no gross focal deficit Emergency Department Course and Treatment: White counts normal urinalysis is completely normal she is treated with analgesia, I do not see any signs of urine infection, she has had multiple workups and a recent CT which was negative I do not see a reason to repeat anything she is to follow up outpatient. Discharge stable condition Impression: Dysuria Pelvic pain This note was generated with EverTune dictation software. It may contain incorrect words, spelling, and punctuation that were not noted in review of the chart prior to signing ED Disposition - Plan for ED Patient: Disposition: Home or Assisted Living Chief Complaint: Complaint Instructions: ED Pelvic Pain [facility] Referrals: Will Dietz MD [Primary Care Provider] - 3-5 Days What to do if you have Problems For any increased pain, shortness of breath, bleeding, nausea or vomiting, chest pain, or any unexpected problems, contact your Primary Care Provider. Call [facility] ([phone]) or report to the closest Emergency Room. Call 911 if necessary. 01/30/18 1341 <Electronically signed by Jayson Yost MD> Date Jayson Yost MD Cosigner Signature (If Indicated): Date CC: Will Dietz MD CBC W/DIFF, AUTOMATED Collected: 01/30/2018 Status: F Source: [place] 11:44 AM [facility] REPOSITORY TYPE CODE TESTS RESULT OUT OF RANGE REFERENCE UNITS LAB L100.1000 4.4-11.0 K/mm3 Normal WBC 9.9 LAB L100.1200 4.2-5.4 M/mm3 Low RBC 3.93 LAB L100.1300 12.0-15.0 g/dl Low HGB 11.6 LAB L100.1400 37-47 % Low HCT 35.9 LAB L100.1500 81-99 fL Normal MCV 91.3 LAB L100.1600 27.0-32.0 pg Normal MCH 29.5 LAB L100.1700 32-36 g/gl Normal MCHC 32.3 LAB L100.1810 11.6-14.6 % Normal RDW CV 14.0 LAB L100.1820 35.1-43.9 fl High RDW SD 46.5 LAB L100.1900 150-450 K/mm3 Normal PLT 151 LAB L100.2000 6.2-12.0 fl Normal MPV 11.6 LAB L100.2100 47-70 % Normal NEUT% 67.3 LAB L100.2200 19-41 % Normal LY% 21.2 LAB L100.2300 0-10 % Normal MONO% 6.6 LAB L100.2400 0-5 % Normal EO% 3.5 LAB L100.2500 0-1 % Normal BASO% 0.5 LAB L100.2550 0.0-0.9 % Normal IM GRAN % 0.900 Result Comment: IG% - Immature Granulocytes (promyelocytes, myelocytes and metamyelocytes) > 1% indicates that a LEFT SHIFT is Present. LAB L100.2620 2.0-7.7 X10 3/uL Normal Absolute Neut 6.7 LAB L100.2720 0.83-4.51 X10 3/ul Normal Absolute Lymph 2.10 Performed By: #### L100.0100 #### [facility] [address] [place], [address] COMPREHENSIVE METABOLIC Collected: 01/30/2018 Status: F Source: [place] [facility] 11:44 AM [facility] REPOSITORY TYPE CODE TESTS RESULT OUT OF RANGE REFERENCE UNITS LAB L501.0100 74-106 mg/dL High GLU 341 Result Comment: Glucose result greater than or equal to 200 mg/dL suggests DIABETES MELLITUS per A.D.A. criteria. Please note revised GLUCOSE reference range effective 2017. LAB L501.1000 7-18 mg/dL Normal BUN 16 LAB L501.1100 0.55-1.02 mg/dL High CREAT,SERUM 1.14 Result Comment: The validity of the calculated GFR AND GFRAA in patients over 70 years has not been determined. Clinical correlation is essential. LAB L501.1110 >60 mL/min Low EST GFR 57 Result Comment: Non- GFR Calc LAB L501.1115 >60 mL/min Normal EST GFR - AA 69 Result Comment: GFR Calc LAB L501.1255 ml/min Normal Estimated CRCL 53.96 LAB L501.1300 10-20 RATIO Normal BUN/CRE 14.0 LAB L501.1500 6.4-8. g/dL Normal 2 T PROT 8.0 LAB L501.1800 3.2-5. g/dL Normal 0 ALB 3.5 LAB L501.1950 2.2-4. g/dL High 2 GLOB 4.5 LAB L501.2000 0.9-2. RATIO Low 4 A/G 0.8 LAB L501.2200 8.5-10 mg/dL Normal .1 CA 8.7 LAB L501.4100 15-37 U/L High AST 39 Result Comment: Moderate Hemolysis, Result may be falsely increased. LAB L501.4305 45-117 U/L Normal ALK P 80 LAB L501.4405 13-56 U/L Normal ALT 34 LAB L501.4600 0.20-1.00 mg/dL Normal T BILI 0.30 LAB L501.5300 136-145 mmol/L Normal NA 136 LAB L501.5600 3.5-5.1 mmol/L Normal K 4.5 Result Comment: Moderate Hemolysis, Result may be falsely increased. LAB L501.5900 98-107 mmol/L Normal CL 104 LAB L501.6100 21.0-32.0 mmol/L Normal CO2 22.0 LAB L501.6200 5-15 Normal GAP 10 Performed By: #### L500.4050 #### [facility] [address] [place], [address] URINALYSIS, COMPLETE Collected: 01/30/2018 Status: F Source: [place] 11:35 AM [facility] REPOSITORY Order Comment: Order Date: 01/30/18 Has pt arrived? Y How was Urine Obtained? CLEAN CATCH TYPE CODE TESTS RESULT OUT OF RANGE REFERENCE UNITS LAB L400.3000 Yellow COLOR Normal Yellow LAB L400.3050 Clear Normal CLARITY Clear LAB L400.3200 Normal mg/dl High GLUCOSE, UR 1000 LAB L400.3300 Negative mg/dL Normal BILIRUBIN URINE Negative LAB L400.3400 Negative mg/dl Normal KETONE UR Negative LAB L400.3465 1.002-1.030 Normal SP.GR. DIPSTX 1.015 LAB L400.3550 5.0 - 8.0 pH UR Normal 6.0 LAB L400.3600 Negative mg/dl High PROT 15 DIPSTX LAB L400.3700 Normal mg/dl Normal UROBILI Normal LAB L400.3750 Negative Normal NITRITE UR Negative LAB L400.3780 Negative /ul Normal OCCULT BLOOD-UR Negative LAB L400.3800 Negative /ul LEUK Normal ESTERASE Negative LAB L400.4050 0-5 /hpf WBC 0 Normal SEEN LAB L400.4100 0-5 /hpf 0 Normal RBC-UA SEEN LAB L400.4150 5-10 /hpf SQUAM 0 Normal EPI SEEN LAB L400.4300 None Seen /hpf 0 Normal BACTERIA SEEN LAB L400.4350 <or=2+ /hpf 0 Normal MUCUS, URINE SEEN Performed By: #### L400.0001 #### [facility] [address] [place], [address] PROGRESS Observed: 01/30/2018 Status: COMPLETED Source: [place] 9:57 AM [facility] REPOSITORY HNO ID: [id number] Author: Abbe Naylor (Don) Monty Service: (none) Author Type: Nurse Practitioner Type: Progress Notes Filed: 01/30/2018 10:13 AM Note Text: Chief Complaint Patient presents with: Recheck: head congestion HPI Debby Bailon is a 37 year old female who presents here today 3 week follow up allergy symptoms. Seen 3 weeks ago and placed on Claritin, Flonase and Sudafed. Reports sx are 65-75% improved on current regimen. Still notes clear rhinorrhea. Admits itchy watery eyes, however she is pleased with sx relief and is now sleeping well. Never has allergy sx before. Using above meds on regular basis. The ROS is otherwise negative. Past medical history, appointments, medications, allergies reviewed. Patient Allergies ALLERGIES Allergen Reactions - Mushroom Anaphylaxis - Peanuts Anaphylaxis - Mri Contrast [Gadol* GI Upset Current Medications Current Outpatient Prescriptions on File Prior to Visit: fluticasone (FLONASE) 50 mcg/actuation nasal spray Use 2 Sprays in each nostril once daily. Rinse mouth after use. loratadine (CLARITIN) 10 mg tablet Take 1 tablet by mouth once daily. pseudoephedrine HCl 30 mg CsTR Take 1-2 tablets by mouth every 6 hours as needed. ibuprofen (MOTRIN) 600 mg tablet Take 1 tablet by mouth every 6 hours as needed for Pain for up to 10 days. zolpidem (AMBIEN) 10 mg tab Take 1 tablet by mouth as needed. Blood-Glucose Meter (ACCU-CHEK ANISH) [facility] [place] 1 meter kit. Dx: Other DM Code E13.29 Lancets (ACCU-CHEK FASTCLIX) lancets Test blood sugar 2 times/day. Dx: Other DM Code E13.29 Insulin Use: No blood sugar diagnostic (ACCU-CHEK SMARTVIEW TEST STRIP) test strip Test blood sugar(s) 2 times daily. Dx: Other DM Code E13.29 Insulin: No COMPOUNDED PRESCRIPTION Stoma catheter tube.DX: Qo5.4 and K59.2 glimepiride (AMARYL) 4 mg tablet Take 1 tablet by mouth daily with breakfast. atorvastatin (LIPITOR) 10 mg tablet Take 1 tablet by mouth once daily. polyethylene glycol 3350 (MIRALAX) 17 gram/dose powder Take 17 g by mouth once daily. propranolol (INDERAL) 10 mg tablet Take 1 tablet by mouth twice daily. DULoxetine (CYMBALTA) 30 mg capsule Take 1 capsule by mouth once daily. metFORMIN ER (GLUCOPHAGE XR) 500 mg 24 hr tablet Take 2 tablets by mouth twice daily. lisinopril 2.5 mg tablet Take 1 tablet by mouth once daily. oxybutynin ER (DITROPAN XL) 10 mg 24 hr tablet Take 1 tablet by mouth once daily. hydrOXYzine pamoate (VISTARIL) 25 mg capsule Take 1 capsule by mouth three times daily as needed. [facility] oxyCODONE-acetaminophen (PERCOCET) 5-325 mg tablet Take 1 tablet by mouth every 4 hours as needed for Pain for up to 7 days. gabapentin (NEURONTIN) 300 mg capsule Take 1 capsule by mouth three times daily. No current facility-administered medications on file prior to visit. Previous Medical History PAST MEDICAL HISTORY Diagnosis Date - Abnormal sensation of left upper and lower extremity 08/07/2013 - Anxiety - Arthritis started age 19 - Cervical radiculopathy 05/02/2013 - Chronic pain 02/12/2015 - Depressive disorder, not elsewhere classified 11/28/2011 [facility] - DJD (degenerative joint disease), thoracic - Dysthymic disorder Depression (non-psychotic), sees BRIM SHAPER at [facility]. 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 Seeing Dr. Gregg - Numbness and tingling of left arm and leg 08/07/2013 - Panic attacks - Recurrent UTI 11/28/2011 - Spina bifida (HCC) 01/06/2016 - Type 2 diabetes mellitus without complication ([facility]) 02/12/2015 - Urinary tract infection, site not specified Recurrent UTI's - Ventral hernia without obstruction or gangrene - Weakness of left upper extremity 08/07/2013 Previous Surgical History PAST SURGICAL HISTORY Procedure Laterality Date - 2D ECHO (EXEP) 06/28/2017 EF=65%. nl - DANDC, DIAG AND/OR THERAPEUTIC Dilation AND curettage - PAST SURGICAL HISTORY OF cholecystectomy - PAST SURGICAL HISTORY OF 09/2012 back surgery x2 - PAST SURGICAL HISTORY OF Left AND 02/2014 foot x2 - PAST SURGICAL HISTORY OF 07/2015 [place] stoma - REPAIR UMBILICAL HERNIA 12/11/2017 - STRESS TEST 07/18/2017 normal Family History FAMILY HISTORY Problem Relation Age of Onset - Arthritis Mother - Diabetes Mother - Heart Mother - Hypertension Mother - Lipids Mother - Stroke Mother - Thyroid Mother - Cancer Father Skin - Cancer Maternal Grandmother LIVER CANCER - Cancer Maternal Uncle Great Uncle - Cancer Maternal Uncle Great Uncle 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 General Appearance: Well appearing, alert, in no acute distress, well-hydrated, well nourished. and Obese. Eyes: Anicteric sclera. Pupils are equally round and reactive to light. Extraocular movements are intact. . Ears: External ears normal, canals clear. Nose/Sinuses: Nares normal, septum midline, mucosa normal, no drainage or sinus tenderness, Positive findings: mucosa swollen, pale, and boggy. Oropharynx: Lips, mucosa, and tongue normal, teeth and gums normal, oropharynx normal. Neck: Supple, no adenopathy; thyroid symmetric, normal size, no bruits. Lungs: Lungs clear to auscultation. No wheezing, rhonchi, rales. Heart: RRR without murmur, gallop, or rubs. No ectopy. ASSESSMENT/PLAN: 1. Seasonal allergic rhinitis, unspecified trigger - ICD9: 477.9, ICD10: J30.2 - Improved. She will continue with current regimen. Explained sx may last until first hard dao. Discussed using OTC sinus rinse or Netti Pot, however patient declines. She will call if needing any further refills. Abbe Millan, MSN CLINICAL APPLICATION SPECIALIST.PRESSURIZATION MECHANIC ZEOV Observed: 01/30/2018 Status: COMPLETED Source: [place] 9:[address] [facility] REPOSITORY [facility] DEBBY BAILON ([id number]) 1980 F Date Time Provider Department 01/30/18 9:40 AM ABBE MILLAN ([facility]) [facility] During your visit today, we recorded the following information about you: Temperature Pulse Respiration Blood pressure 97.7 degrees 80/minute 20/minute 120/88 Weight 108 kg Abbe Millan, MSN CLINICAL APPLICATION SPECIALIST.PRESSURIZATION MECHANIC 01/30/2018 10:13 AM Signed Chief Complaint Patient presents with: Recheck: head congestion HPI Debby Bailon is a 37 year old female who presents here today 3 week follow up allergy symptoms. Seen 3 weeks ago and placed on Claritin, Flonase and Sudafed. Reports sx are 65-75% improved on current regimen. Still notes clear rhinorrhea. Admits itchy watery eyes, however she is pleased with sx relief and is now sleeping well. Never has allergy sx before. Using above meds on regular basis. The ROS is otherwise negative. Past medical history, appointments, medications, allergies reviewed. Patient Allergies ALLERGIES Allergen Reactions - Mushroom Anaphylaxis - Peanuts Anaphylaxis - Mri Contrast [Gadol* GI Upset Current Medications Current Outpatient Prescriptions on File Prior to Visit: fluticasone (FLONASE) 50 mcg/actuation nasal spray Use 2 Sprays in each nostril once daily. Rinse mouth after use. loratadine (CLARITIN) 10 mg tablet Take 1 tablet by mouth once daily. pseudoephedrine HCl 30 mg CsTR Take 1-2 tablets by mouth every 6 hours as needed. ibuprofen (MOTRIN) 600 mg tablet Take 1 tablet by mouth every 6 hours as needed for Pain for up to 10 days. zolpidem (AMBIEN) 10 mg tab Take 1 tablet by mouth as needed. Blood-Glucose Meter (ACCU-CHEK ANISH) [facility] [place]pense 1 meter kit. Dx: Other DM Code E13.29 Lancets (ACCU-CHEK FASTCLIX) lancets Test blood sugar 2 times/day. Dx: Other DM Code E13.29 Insulin Use: No blood sugar diagnostic (ACCU-CHEK SMARTVIEW TEST STRIP) test strip Test blood sugar(s) 2 times daily. Dx: Other DM Code E13.29 Insulin: No COMPOUNDED PRESCRIPTION Stoma catheter tube.DX: Qo5.4 and K59.2 glimepiride (AMARYL) 4 mg tablet Take 1 tablet by mouth daily with breakfast. atorvastatin (LIPITOR) 10 mg tablet Take 1 tablet by mouth once daily. polyethylene glycol 3350 (MIRALAX) 17 gram/dose powder Take 17 g by mouth once daily. propranolol (INDERAL) 10 mg tablet Take 1 tablet by mouth twice daily. DULoxetine (CYMBALTA) 30 mg capsule Take 1 capsule by mouth once daily. metFORMIN ER (GLUCOPHAGE XR) 500 mg 24 hr tablet Take 2 tablets by mouth twice daily. lisinopril 2.5 mg tablet Take 1 tablet by mouth once daily. oxybutynin ER (DITROPAN XL) 10 mg 24 hr tablet Take 1 tablet by mouth once daily. hydrOXYzine pamoate (VISTARIL) 25 mg capsule Take 1 capsule by mouth three times daily as needed. [facility] oxyCODONE-acetaminophen (PERCOCET) 5-325 mg tablet Take 1 tablet by mouth every 4 hours as needed for Pain for up to 7 days. gabapentin (NEURONTIN) 300 mg capsule Take 1 capsule by mouth three times daily. No current facility-administered medications on file prior to visit. Previous Medical History PAST MEDICAL HISTORY Diagnosis Date - Abnormal sensation of left upper and lower extremity 08/07/2013 - Anxiety - Arthritis started age 19 - Cervical radiculopathy 05/02/2013 - Chronic pain 02/12/2015 - Depressive disorder, not elsewhere classified 11/28/2011 [facility] - DJD (degenerative joint disease), thoracic - Dysthymic disorder Depression (non-psychotic), sees BRIM SHAPER at [facility]. 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 Seeing Dr. Gregg - Numbness and tingling of left arm and leg 08/07/2013 - Panic attacks - Recurrent UTI 11/28/2011 - Spina bifida (HCC) 01/06/2016 - Type 2 diabetes mellitus without complication (HCC) 02/12/2015 - Urinary tract infection, site not specified Recurrent UTI's - Ventral hernia without obstruction or gangrene - Weakness of left upper extremity 08/07/2013 Previous Surgical History PAST SURGICAL HISTORY Procedure Laterality Date - 2D ECHO (EXEP) 06/28/2017 EF=65%. nl - DANDC, DIAG AND/OR THERAPEUTIC Dilation AND curettage - PAST SURGICAL HISTORY OF cholecystectomy - PAST SURGICAL HISTORY OF 09/2012 back surgery x2 - PAST SURGICAL HISTORY OF Left AND 02/2014 foot x2 - PAST SURGICAL HISTORY OF 07/2015 Knapp stoma - REPAIR UMBILICAL HERNIA 12/11/2017 - STRESS TEST 07/18/2017 normal Family History FAMILY HISTORY Problem Relation Age of Onset - Arthritis Mother - Diabetes Mother - Heart Mother - Hypertension Mother - Lipids Mother - Stroke Mother - Thyroid Mother - Cancer Father Skin - Cancer Maternal Grandmother LIVER CANCER - Cancer Maternal Uncle Great Uncle - Cancer Maternal Uncle Great Uncle 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 General Appearance: Well appearing, alert, in no acute distress, well-hydrated, well nourished. and Obese. Eyes: Anicteric sclera. Pupils are equally round and reactive to light. Extraocular movements are intact. . Ears: External ears normal, canals clear. Nose/Sinuses: Nares normal, septum midline, mucosa normal, no drainage or sinus tenderness, Positive findings: mucosa swollen, pale, and boggy. Oropharynx: Lips, mucosa, and tongue normal, teeth and gums normal, oropharynx normal. Neck: Supple, no adenopathy; thyroid symmetric, normal size, no bruits. Lungs: Lungs clear to auscultation. No wheezing, rhonchi, rales. Heart: RRR without murmur, gallop, or rubs. No ectopy. ASSESSMENT/PLAN: 1. Seasonal allergic rhinitis, unspecified trigger - ICD9: 477.9, ICD10: J30.2 - Improved. She will continue with current regimen. Explained sx may last until first hard dao. Discussed using OTC sinus rinse or Netti Pot, however patient declines. She will call if needing any further refills. Abbe Millan, MSN CLINICAL APPLICATION SPECIALIST.PRESSURIZATION MECHANIC Referring Provider: ABBE MILLAN ([facility] SHAPER) [[id number]] Allergies As of Date: 01/30/2018 Noted Allergy Reaction MUSHROOM 06/10/2016 10 - Anaphylaxis PEANUTS 06/10/2016 10 - Anaphylaxis MRI CONTRAST (GADOLINIUM-CONTAINI*01/03/2017 8 - GI Upset Date Reviewed: 01/30/2018 Reviewed by: Simeon Rutherford LPN - Fully Assessed Reason for Visit: Recheck [92] Cmt: head congestion Primary Visit Diagnosis:Seasonal allergic rhinitis, unspecified trigger [J30.2] Prescriptions as of 01/30/2018 Sig: FLUTICASONE 50 MCG/ACTUATION * Use 2 Sprays in each nostril * LORATADINE 10 MG TABLET Take 1 tablet by mouth once d* PSEUDOEPHEDRINE 30 MG CAPSULE* Take 1-2 tablets by mouth sarah* IBUPROFEN 600 MG TABLET Take 1 tablet by mouth every * ZOLPIDEM 10 MG TABLET Take 1 tablet by mouth as nee* BLOOD-GLUCOSE METER Dispense 1 meter kit. Dx: Ot* LANCETS Test blood sugar 2 times/day* BLOOD SUGAR DIAGNOSTIC STRIPS Test blood sugar(s) 2 times d* COMPOUNDED PRESCRIPTION Stoma catheter tube. DX: Qo5* GLIMEPIRIDE 4 MG TABLET Take 1 tablet by mouth daily * ATORVASTATIN 10 MG TABLET Take 1 tablet by mouth once d* POLYETHYLENE GLYCOL 3350 17 G* Take 17 g by mouth once daily. PROPRANOLOL 10 MG TABLET Take 1 tablet by mouth twice * DULOXETINE 30 MG CAPSULE,SHERRY* Take 1 capsule by mouth once * METFORMIN ER 500 MG TABLET,EX* Take 2 tablets by mouth twice* LISINOPRIL 2.5 MG TABLET Take 1 tablet by mouth once d* OXYBUTYNIN CHLORIDE ER 10 MG * Take 1 tablet by mouth once d* HYDROXYZINE PAMOATE 25 MG CAP* Take 1 capsule by mouth three* OXYCODONE-ACETAMINOPHEN 5 MG-* Take 1 tablet by mouth every * GABAPENTIN 300 MG CAPSULE Take 1 capsule by mouth three* Problem List As Of Date 01/30/2018 Noted Resolved Threatened , antepartum [O20.0] INVALID FOR*04/07/2011 Supervision of normal first [Z34.00] INVALID FOR*04/07/2011 Cyst of ovary [N83.209] INVALID FOR* Priority: C Depressive disorder, not elsewhere classified [*INVALID FOR*01/06/2016 Priority: A More... Anxiety [F41.9] INVALID FOR* Priority: A More... Recurrent UTI [N39.0] INVALID FOR* Priority: C Dysthymic disorder [F34.1] Priority: A More... Panic attacks [F41.0] Priority: A Neck pain [M54.2] INVALID FOR* Priority: M Cervical radiculopathy [M54.12] INVALID FOR* Priority: M Weakness of both upper extremities [R29.898] INVALID FOR* Priority: M More... Muscle weakness of lower extremity [M62.81] INVALID FOR* Priority: M More... Numbness and tingling of left arm and leg [R20.*INVALID FOR* Priority: M Abnormal sensation of left upper and lower extr*INVALID FOR*01/06/2016 Priority: D Lipomeningocele (HCC) [Q05.9] INVALID FOR* Priority: B Lumbago [M54.5] INVALID FOR* Priority: M Neuropathy ([facility]) [G62.9] INVALID FOR* Priority: A More... Morbid obesity ([facility]) [E66.01] INVALID FOR* Priority: B Chronic pain [G89.29] INVALID FOR* Priority: M Neurogenic bladder [N31.9] INVALID FOR* Priority: B Hydronephrosis, right [N13.30] INVALID FOR* Priority: C History of kidney stones [Z87.442] INVALID FOR* Priority: C Spina bifida (HCC) [Q05.9] INVALID FOR* Priority: B Neurogenic bowel [K59.2] INVALID FOR* Priority: B Primary insomnia [F51.01] INVALID FOR* Priority: A 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)*INVALID FOR* Priority: A Pyelonephritis [N12] INVALID FOR* Diabetic eye exam (HCC) [Z01.00, E11.9] INVALID FOR* Priority: A More... 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 Ulcer of left foot (HCC) [L97.529] INVALID FOR* Priority: M Paroxysmal SVT (supraventricular tachycardia) (*INVALID FOR* Priority: A More... DM (diabetes mellitus), secondary, uncontrolled*INVALID FOR* Priority: A S/P hernia repair [Z98.890, Z87.19] INVALID FOR* Thyroid cyst [E04.1] INVALID FOR* More... Disposition: Return if symptoms worsen or fail to improve. 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 Is patient in pain?: No Allergies mushroom Allergy (Verified 01/23/18 08:05) Anaphylaxis peanut Allergy (Verified 01/23/18 08:05) Anaphylaxis Gadolinium-MRI Contrast Medium Adverse Reaction (Verified 01/23/18 08:05) Vomiting Medications Gabapentin 300 mg PO TID 02/14/15 [History Confirmed 01/23/18] Duloxetine Hcl [Cymbalta] 30 mg PO DAILY 10/06/15 [History Confirmed 01/23/18] Metformin(XR) [Glucophage Xr] 1,000 mg PO BID 06/19/16 [History Confirmed 01/23/18] Propranolol HCl 10 mg PO DAILY 07/18/17 [History Confirmed 01/23/18] Atorvastatin Calcium [Lipitor] 10 mg PO QHS 11/07/17 [History Confirmed 01/23/18] Cephalexin [Keflex] 500 mg PO Q6 #28 cap 01/21/18 [Rx Confirmed 01/23/18] Loratadine 10 mg PO DAILY 01/21/18 [History Confirmed 01/23/18] Pseudoephedrine HCl [Sudogest] 30 mg PO Q6H PRN PRN 01/21/18 [History Confirmed 01/23/18] PFSH Medical History Neurogenic bowel (Acute) Neurogenic bladder (Acute) Chronic back pain (Chronic) History of migraine (Chronic) Depression (Chronic) Spina bifida aperta of lumbar spine (Chronic) Non-compliance (Chronic) Morbid obesity with BMI of 40.0-44.9, adult (Chronic) Diabetes mellitus, type II (Chronic) UTI (urinary tract infection) (Acute) Nausea and vomiting (Acute) Hydronephrosis of right kidney (Acute) UTI (urinary tract infection) (Acute) Hydronephrosis, right (Acute) Surgical History History of cholecystectomy (Acute) History of dilation and curettage (Acute) History of spinal surgery (Acute) Hx of foot surgery (Acute) Hx of ventral hernia repair (Acute) Status post gastric surgery (Acute) Family History Mother CVA (cerebral vascular accident) Thyroid disorder Diabetes Hypertension Social History Smoking Status: Never smoker HPI HPI HPI: DEBBY BAILON, is a 37 F who presents to the office today for Office Procedures Fine Needle Aspiration Provider Documentation Details: Preoperative diagnosis: Uninodular goiter right side Postoperative diagnosis the same Procedure: Ultrasound-guided fine-needle aspiration of dominant right thyroid nodule Surgeon: [place] Procedure: Ultrasound of the right thyroid gland revealed the dominant nodule in question. Prepped the skin with alcohol. I injected 1% lidocaine plain. Under ultrasound guidance I took 3 passes with a 22-gauge needle. I aspirated out approximately 3-1/2 cc of reddish fluid and the other 2 passes I plated on glass slides and sent to pathology for permanent sectioning. Sterile dressings were applied. The patient tolerated the procedure Alert Kely Alert Billing: Yes FNA 29179 Thyroid Procedure Time Out Time Out Informed consent given: Yes Consent signed: Yes Time out checklist: patient, procedure, site marked/identified, positioning of patient, supplies available, allergies confirmed, team agrees on procedure Time out staff in room: Yes Time out verified: Yes Time out date: 01/23/18 Time out time: 08:07 Assessment AND Plan Problems 1. Uninodular goiter E04.1 Plan Patient will follow back up with me in 1 week to go over the path report. Orders Orders: Coding Level of Care Code Attention Pattern Vault Clerk Diagnoses Uninodular goiter E04.1 Additional Codes FNA - Fine Needle Aspiration: 86743 Thyroid (04902) 01/23/18 0837 <Electronically signed by Nemesio Josue MD> Date Nemesio Josue MD Cosigner Signature: Date (if applicable) CC: ASP RADIOLOGY (FLUID) Observed: 01/23/2018 Status: F Source: [place] 8:15 AM [facility] REPOSITORY Patient: DEBBY BAILON : 1980 (37/F) Acct Num: [id number] Phys: Joselo FITZGERALD,Nemesio Unit Num: [id number] Loc: [facility] Specimen: [id number] Received: 01/23/18 - 1107 Spec Type: ASP OUT TISSUES TISSUES: A. Thyroid gland, NOS - RIGHT THYROID FLUID B. Thyroid gland, NOS - RIGHT THYROID SLIDES CYTOLOGY GROSS A - Received is 2 ml of red cloudy fluid labeled with the patient's name and and designated per the requisition as right thyroid. Submitted for cytology preparation including cell block. B - Received are 12 smears labeled with the patient's name and designated per the requisition as right thyroid. Submitted for staining. / 01/23/18 TC:5 CPT: 99561, 22280, 55562 CYTOLOGY STUDY Slides are reviewed. DIAGNOSIS CYTOLOGY A. Fine needle aspiration, right thyroid nodule (cytospin and cell block): Consistent with benign cystic nodule. B. Fine needle aspiration, right thyroid nodule (smears): Adequate for evaluation. Benign, consistent with cystic colloid nodule. AM:rg 01/24/18 HEADER OPERATION: Ultrasound-guided fine needle aspiration right thyroid PRE-OP DIAGNOSIS: Uninodular goiter E04.1 TISSUE SUBMITTED: A Fluid in syringe right thyroid for cytology, B Fine needle aspiration, right thyroid (12 slides) Signed [facility] 01/24/18 <signature on file> Performed By: #### PASLAWRENCEG #### [facility] [address] [place], [address] SURGERY VISIT REPORT Observed: 01/22/2018 Status: F Source: [place] 8:27 [facility] REPOSITORY [facility] 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 [employer] Installation Required: No Is patient in pain?: No Allergies mushroom Allergy (Verified 01/21/18 01:33) Anaphylaxis peanut Allergy (Verified 01/21/18 01:33) Anaphylaxis Gadolinium-MRI Contrast Medium Adverse Reaction (Verified 01/21/18 01:33) Vomiting Medications Gabapentin 300 mg PO TID 02/14/15 [History Confirmed 01/21/18] Duloxetine Hcl [Cymbalta] 30 mg PO DAILY 10/06/15 [History Confirmed 01/21/18] Metformin(XR) [Glucophage Xr] 1,000 mg PO BID 06/19/16 [History Confirmed 01/21/18] Propranolol HCl 10 mg PO DAILY 07/18/17 [History Confirmed 01/21/18] Atorvastatin Calcium [Lipitor] 10 mg PO QHS 11/07/17 [History Confirmed 01/21/18] Cephalexin [Keflex] 500 mg PO Q6 #28 cap 01/21/18 [Rx] Loratadine 10 mg PO DAILY 01/21/18 [History Confirmed 01/21/18] Pseudoephedrine HCl [Sudogest] 30 mg PO Q6H PRN PRN 01/21/18 [History Confirmed 01/21/18] Is last menstrual period known: No Post menopausal: No Patient : No PFSH Medical History Neurogenic bowel (Acute) Neurogenic bladder (Acute) Chronic back pain (Chronic) History of migraine (Chronic) Depression (Chronic) Spina bifida aperta of lumbar spine (Chronic) Non-compliance (Chronic) Morbid obesity with BMI of 40.0-44.9, adult (Chronic) Diabetes mellitus, type II (Chronic) UTI (urinary tract infection) (Acute) Nausea and vomiting (Acute) Hydronephrosis of right kidney (Acute) UTI (urinary tract infection) (Acute) Hydronephrosis, right (Acute) Surgical History History of cholecystectomy (Acute) History of dilation and curettage (Acute) History of spinal surgery (Acute) Hx of foot surgery (Acute) Hx of ventral hernia repair (Acute) Status post gastric surgery (Acute) Family History Mother CVA (cerebral vascular accident) Thyroid disorder Diabetes Hypertension Social History Smoking Status: Never smoker HPI HPI HPI: DEBBY BAILON, is a 37 F who presents to the office today for evaluation of a abnormal thyroid ultrasound. Patient had a thyroid ultrasound done at the [facility] in [facility] on January 01, 2018. This showed on the right thyroid lobe to have measured 5.5 x 2.5 x 2.4 and the left thyroid lobe to measure 5.5 x 1.5 x 1.5. There was several predominantly cystic nodule seen within the right thyroid lobe. The largest was inferior it was septated and measured 2.4 x 1.6 x 1.1. Each of the additional nodules were near 1 cm in size but not completely greater than 1 cm in size. There were no significant vascular nodules. There is no nodules identified on the left side. She presents to my office today for evaluation of these said nodules. Patient states that she has noted a raspy voice similar to having a cold. She has has a mom with thyroid issues and she herself has never been exposed to any radiation therapy. ROS General General: Yes weight change and fatigue; no appetite, colon cancer, breast cancer or weakness HEENT HEENT: Yes difficulty swallowing and swollen glands; no eye injury, eye surgery or hoarseness Endo Endocrine: Yes diabetes mellitus; no thyroid disease, thyroid cancer, Hair loss, heat intolerance or cold intolerance Musc Musculoskeletal: Yes back problems and arthritis; no rheumatoid arthritis, gout or joint pain Cardio Cardiovascular: No murmur, pacemaker, heart disease, atrial fibrillation, high blood pressure, heart attack, heart stent, palpitations, shortness of breat with exertion or chest pain Resp Respiratory: Yes shortness of breath, Yes sleep apnea, No cough, No COPD, No asthma, No emphysema, No wheezing Gastro Gastrointestinal: Yes abdominal pain, Yes nausea or vomiting, No diarrhea, Yes constipation, No blood in stool, No acid reflux, Yes hemorrhoids, No ulcers, No gallbladder problem, No black,tarry stools Nitin Hematologic: No blood thinners, No blood disorders, No bleeding, No anemia, No blood clots Neuro Neurologic: No weakness Exam Const General: well developed, no acute distress, well hydrated Orientation: oriented to person, oriented to place, oriented to time [facility] Head: normocephalic, atraumatic Ears: external ears normal Mouth: moist mucous membranes Other: Thyroid Exam: Soft no hard nodules are palpated there is no significant tenderness identified. There is no lymphadenopathy identified. Eyes Sclera: sclerae normal Pupils: normal by confrontation Neck Neck: no lymphadenopathy noted Neck mass: No Thyroid: symmetrical, thyroid normal Chest Chest palpation AND inspection: normal inspection of the chest Resp Effort AND Inspection: normal respiratory effort Auscultation: clear to auscultation bilaterally Percussion: percussion normal Cardio Rate: regular rate Rhythm: regular rhythm Heart Sounds: no murmurs GI Palpation: soft, no masses, no hepatosplenomegaly, nontender Rectal Exam: other Other: Rectal exam deferred. Extrem General: no clubbing, cyanosis or edema, normal to inspection Assessment AND Plan Problems 1. Uninodular goiter E04.1 Plan I plan to perform a fine-needle aspiration of the right thyroid gland. Wrist benefits have been reviewed with the patient the patient agrees to proceed. All questions asked of been answered. Coding Level of Care Code Off vis,new,level 3 Diagnoses Uninodular goiter E04.1 01/22/18 0827 <Electronically signed by Nemesio Josue MD> Date Nemesio Josue MD Cosigner Signature: Date (if applicable) CC: Will Dietz MD EMERGENCY DEPARTMENT Observed: 01/21/2018 Status: F Source: [facility] SUMMARY 5:28 AM [facility] REPOSITORY [facility] Medical Records Department [address] [place] [id number] Emergency Department Summary 01/21/18 0414 MR#: [id number] Acct: [id number] Name: DEBBY BAILON Rep #: [id number] : 1980 37 From: Nemesio Pro MD PCP: Will Dietz MD Status: DEP ER - ER Visit Summary Date of Service: 01/21/18 Chief Complaint: Pain History of Present Illness: The patient is a 37 F with right flank pain. Associated with nausea, vomiting, cloudy and foul-smelling urine. Symptoms started within the past 24 hours and came on gradually. She had similar symptoms in the past with UTIs and kidney stones. She does have a history of spina bifida and neurogenic bladder. She self caths. No fevers. No other associated symptoms. Physical Examination: Afebrile and vital signs unremarkable. No acute distress. Heart regular. Lungs clear. Abdomen is tender in the right flank region. Right CVA tenderness. Skin appears normal. Test Results: Hemoglobin 1.9, glucose 254, creatinine 1.03. Urinalysis unremarkable. test negative. CT abdomen and pelvis shows hepatic steatosis, right congenital megaureter, and no acute abnormalities. Emergency Department Course and Treatment: Patient treated with fluids, Zofran, Toradol while awaiting results. Her workup was fairly unremarkable. She has a history of high blood sugars, anemia, megaureter, and hepatic steatosis. There are no signs of bleeding. No signs of stones. I think her symptoms might be more likely due to infection. Although her urinalysis was unremarkable, she has concerning symptoms and risk factors for infection. Culture was sent. She will be started on keflex. Patient will follow-up as an outpatient. Return for any new or worsening issues. Treatment Plan: As above Disposition: Discharged Impression: 1. Dysuria This note was generated with EverTune dictation software. It may contain incorrect words, spelling, and punctuation that were not noted in review of the chart prior to signing ED Disposition - Plan for ED Patient: Chief Complaint: Flank Pain Referrals: Will Dietz MD [Primary Care Provider] - What to do if you have Problems For any increased pain, shortness of breath, bleeding, nausea or vomiting, chest pain, or any unexpected problems, contact your Primary Care Provider. Call [facility] ([phone]) or report to the closest Emergency Room. Call 911 if necessary. 01/21/18 0528 <Electronically signed by Nemesio Pro MD> Date Nemesio Pro MD Cosigner Signature (If Indicated): Date CC: Will Dietz MD DISCHARGE INSTRUCTION Observed: 01/21/2018 Status: F Source: [facility] 5:28 AM [facility] Medical Records Department [address] [place] [address] Discharge Instruction 01/21/18 0416 MR#: [id number] Acct: [id number] Name: DEBBY BAILON Rep #: [id number] : 1980 37 From: Nemesio Pro MD PCP: Will Dietz MD Status: DEP ER ED Disposition - Plan for ED Patient: Chief Complaint: Flank Pain Instructions: ED Flank Pain Uncertain Cause Prescriptions: Cephalexin [Keflex] 500 mg PO Q6 #28 cap Referrals: Will Dietz MD [Primary Care Provider] - What to do if you have Problems For any increased pain, shortness of breath, bleeding, nausea or vomiting, chest pain, or any unexpected problems, contact your Primary Care Provider. Call [facility] ([phone]) or report to the closest Emergency Room. Call 911 if necessary. 01/21/18 0528 <Electronically signed by Nemesio Pro MD> Date Nemesio Pro MD Cosigner Signature (If Indicated): Date CC: Will Dietz MD URINALYSIS, COMPLETE Collected: 01/21/2018 Status: F Source: [place] 2:20 AM [facility] REPOSITORY Order Comment: Order Date: 01/21/18 Has pt arrived? Y How was Urine Obtained? CLEAN CATCH TYPE CODE TESTS RESULT OUT OF RANGE REFERENCE UNITS LAB L400.3000 Yellow COLOR Normal Yellow LAB L400.3050 Clear Normal CLARITY Clear LAB L400.3200 Normal mg/dl High GLUCOSE, UR 1000 LAB L400.3300 Negative mg/dL Normal BILIRUBIN URINE Negative LAB L400.3400 Negative mg/dl Normal KETONE UR Negative LAB L400.3465 1.002-1.030 Normal SP.GR. DIPSTX 1.015 LAB L400.3550 5.0 - 8.0 pH UR Normal 6.0 LAB L400.3600 Negative mg/dl High PROT 15 DIPSTX LAB L400.3700 Normal mg/dl High 1 UROBILI LAB L400.3750 Negative Normal NITRITE UR Negative LAB L400.3780 Negative /ul Normal OCCULT BLOOD-UR Negative LAB L400.3800 Negative /ul LEUK Normal ESTERASE Negative LAB L400.4050 0-5 /hpf WBC Normal 0-5 SEEN LAB L400.4100 0-5 /hpf 0 Normal RBC-UA SEEN LAB L400.4150 5-10 /hpf SQUAM Normal EPI 5-10 SEEN LAB L400.4300 None Seen /hpf 0 Normal BACTERIA SEEN LAB L400.4350 <or=2+ /hpf 0 Normal MUCUS, URINE SEEN Performed By: #### L400.0001 #### [facility] [address] [place], [address] Observed: 01/21/2018 Status: F Source: [place] CULTURE, URINE 2:20 AM [facility] REPOSITORY Order Date: 01/21/18 Urine Culture Below infection level. ORGANISM 1: Mixed Gram Positive Organisms [place] Count 1000-10,000 Performed By: #### M100.0650 #### [facility] [address] [place], [address] CBC W/DIFF, AUTOMATED Collected: 01/21/2018 Status: F Source: [place] 2:07 AM [facility] REPOSITORY TYPE CODE TESTS RESULT OUT OF RANGE REFERENCE UNITS LAB L100.1000 4.4-11.0 K/mm3 Normal WBC 10.0 LAB L100.1200 4.2-5.4 M/mm3 Low RBC 3.89 LAB L100.1300 12.0-15.0 g/dl Low HGB 11.9 LAB L100.1400 37-47 % Low HCT 35.6 LAB L100.1500 81-99 fL Normal MCV 91.5 LAB L100.1600 27.0-32.0 pg Normal MCH 30.6 LAB L100.1700 32-36 g/gl Normal MCHC 33.4 LAB L100.1810 11.6-14.6 % Normal RDW CV 13.8 LAB L100.1820 35.1-43.9 fl High RDW SD 45.5 LAB L100.1900 150-450 K/mm3 Normal PLT 186 LAB L100.2000 6.2-12.0 fl Normal MPV 10.5 LAB L100.2100 47-70 % Normal NEUT% 55.6 LAB L100.2200 19-41 % Normal LY% 27.0 LAB L100.2300 0-10 % High MONO% 11.4 LAB L100.2400 0-5 % Normal EO% 4.0 LAB L100.2500 0-1 % Normal BASO% 0.6 LAB L100.2550 0.0-0.9 % High IM GRAN % 1.400 Result Comment: IG% - Immature Granulocytes (promyelocytes, myelocytes and metamyelocytes) > 1% indicates that a LEFT SHIFT is Present. LAB L100.2620 2.0-7.7 X10 3/uL Normal Absolute Neut 5.6 LAB L100.2720 0.83-4.51 X10 3/ul Normal Absolute Lymph 2.70 Performed By: #### L100.0100 #### [facility] [address] [place], [address] BASIC METABOLIC Collected: 01/21/2018 Status: F Source: [place] PROFILE ([facility]) 2:07 AM [facility] REPOSITORY TYPE CODE TESTS RESULT OUT OF RANGE REFERENCE UNITS LAB L501.0100 74-106 mg/dL High GLU 254 Result Comment: Glucose result greater than or equal to 200 mg/dL suggests DIABETES MELLITUS per A.D.A. criteria. Please note revised GLUCOSE reference range effective 2017. LAB L501.1000 7-18 mg/dL Normal BUN 9 LAB L501.1100 0.55-1.02 mg/dL High CREAT,SERUM 1.03 Result Comment: The validity of the calculated GFR AND GFRAA in patients over 70 years has not been determined. Clinical correlation is essential. LAB L501.1110 >60 mL/min Normal EST GFR 64 Result Comment: Non- GFR Calc LAB L501.1115 >60 mL/min Normal EST GFR - AA 78 Result Comment: GFR Calc LAB L501.1255 ml/min Normal Estimated CRCL 59.72 LAB L501.1300 10-20 RATIO Low BUN/CRE 8.7 LAB L501.2200 8.5-10 mg/dL Normal .1 CA 8.7 LAB L501.5300 136-14 mmol/L Normal 5 NA 139 LAB L501.5600 3.5-5. mmol/L Normal 1 K 3.8 LAB L501.5900 98-107 mmol/L Normal CL 105 LAB L501.6100 21.0-3 mmol/L Normal 2.0 CO2 25.0 LAB L501.6200 5-15 Normal GAP 9 Performed By: #### L500.2500 #### [facility] [address] [facility] [place], [address] ,SERUM,HCG QUALI. Collected: Status: F Source: [place] 01/21/2018 2:07 AM [facility] REPOSITORY TYPE CODE TESTS RESULT OUT OF REFERENCE UNITS RANGE LAB L700.7000 0-9 Nonpreg Negative Normal HCGSQUAL NEGATIVE LAB L700.6700 =>Qualitative mIU/mL Normal HCG Qual < 1 triggr Performed By: #### L700.6800 #### [facility] [address] [place], [address] ABDOMEN/PELVIS WITHOUT Observed: 01/21/2018 Status: F Source: [place] CONT 2:03 AM [facility] REPOSITORY [facility] Imaging Services [address] [place] [address] Abdomen/Pelvis without Cont MR#: [id number] Acct: [id number] Name: DEBBY BAILON Rep #: [id number] : 1980 F 37 From: Emely Hay MD PCP: Will Dietz MD Status: REG ER Study: Abdomen/Pelvis without Cont Date of Exam: 01/21/18 Exam# [id number] Ordering Dr: Nemesio Pro MD STUDY: CT ABDOMEN AND PELVIS WITHOUT CONTRAST REASON FOR EXAM: Female, 37 years old. Right-sided flank pain with odor to urine. RADIATION DOSAGE (If Supplied By Facility): CTDIvol = ( 18.87 ) mGy, DLP = ( 971.00 ) mGycm TECHNIQUE: Transaxial images were obtained from the dome of the diaphragm to the symphysis pubis without oral contrast, and without intravenous contrast. Sagittal and coronal images were reconstructed. Individualized dose optimization techniques were used for this CT. COMPARISON: CT of the abdomen and pelvis dated December 24, 2017. FINDINGS: The visualized lung bases are unremarkable. The visualized portions of the heart are within normal limits. There is decreased attenuation of the liver consistent with steatosis. There is non-visualization of the gallbladder, which may be secondary to either contraction or a prior cholecystectomy. Normal spleen. Normal pancreas. Normal bilateral adrenal glands. There is moderate to severe dilatation of the right renal collecting system and ureter. This is similar to the previous study and suggests possible sequela of congenital megaureter. Normal left kidney. Normal visualized stomach. There is no evidence for dilated bowel, ascites or pneumoperitoneum. Small bowel has a grossly normal appearance. Stool is visible throughout the colon with scattered colonic diverticula. There is non-visualization of the appendix. Normal abdominal aorta. Normal inferior vena cava. Normal retroperitoneum. Normal urinary bladder. Normal visualized uterus. Patient has mesh material adjacent to the anterior abdominal wall suggesting sequela of ventral herniorrhaphy. Appears to be a wedge-shaped compression of T8. This is similar to previous CT. This may be associated with a hemangioma as well. The patient appears to have spina bifida at S2, S1, L5 and L4. CT/Abdomen/Pelvis without Cont IMPRESSION: 1. No CT evidence of acute intra-abdominal disease. 2. Chronic dilatation of the right renal pelvis and ureter suggests sequela of congenital megaureter. 3. Hepatic steatosis. Electronically Signed: Emely Hay MD at 3:04 EDT , Service support , CC: Nemesio Pro MD; Will Dietz MD Paper Rewinder Operator: Signed PROGRESS Observed: 01/15/2018 Status: COMPLETED Source: [place] 1:45 PM [facility] OTHER [facility] REPOSITORY O ID: [id number] Author: Anne Christensen Service: (none) Author Type: Physician Type: Progress Notes Filed: 01/15/2018 1:47 PM Note Text: Patient referred by: SELF Patient presents with: Post-Op Visit: Here for follow up for unbilical hernia surgery. HPI: This is a post operative visit. 37-year-old female status post repair of ventral incisional hernia. She is doing well. She's having output without flushing her Knapp stoma. She has no nausea or vomiting. Her incision is healing well. PAST MEDICAL HISTORY Diagnosis Date - Abnormal sensation of left upper and lower extremity 08/07/2013 - Anxiety - Arthritis started age 19 - Cervical radiculopathy 05/02/2013 - Chronic pain 02/12/2015 - Depressive disorder, not elsewhere classified 11/28/2011 [facility] - DJD (degenerative joint disease), thoracic - Dysthymic disorder Depression (non-psychotic), sees BRIM SHAPER at [facility]. 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 Seeing Dr. Gregg - Numbness and tingling of left arm and leg 08/07/2013 - Panic attacks - Recurrent UTI 11/28/2011 - Spina bifida (HCC) 01/06/2016 - Type 2 diabetes mellitus without complication ([facility]) 02/12/2015 - Urinary tract infection, site not specified Recurrent UTI's - Ventral hernia without obstruction or gangrene - Weakness of left upper extremity 08/07/2013 PAST SURGICAL HISTORY Procedure Laterality Date - 2D ECHO (EXEP) 06/28/2017 EF=65%. nl - DANDC, DIAG AND/OR THERAPEUTIC Dilation AND curettage - PAST SURGICAL HISTORY OF cholecystectomy - PAST SURGICAL HISTORY OF 09/2012 back surgery x2 - PAST SURGICAL HISTORY OF Left AND 02/2014 foot x2 - PAST SURGICAL HISTORY OF 07/2015 Knapp stoma - REPAIR UMBILICAL HERNIA 12/11/2017 - STRESS TEST 07/18/2017 normal FAMILY HISTORY Problem Relation Age of Onset - Arthritis Mother - Diabetes Mother - Heart Mother - Hypertension Mother - Lipids Mother - Stroke Mother - Thyroid Mother - Cancer Father Skin - Cancer Maternal Grandmother LIVER CANCER - Cancer Maternal Uncle Great Uncle - Cancer Maternal Uncle Great Uncle Social History Marital status: Spouse name: MEHDI Years of education: 12 Number of children: 0 Occupational History 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 Blood-Glucose Meter (ACCU-CHEK ANISH) [facility] [place] meter kit. Dx: Other DM Code E13.29 Lancets (ACCU-CHEK FASTCLIX) lancets Test blood sugar 2 times/day. Dx: Other DM Code E13.29 Insulin Use: No blood sugar diagnostic (ACCU-CHEK SMARTVIEW TEST STRIP) test strip Test blood sugar(s) 2 times daily. Dx: Other DM Code E13.29 Insulin: No COMPOUNDED PRESCRIPTION Stoma catheter tube.DX: Qo5.4 and K59.2 glimepiride (AMARYL) 4 mg tablet Take 1 tablet by mouth daily with breakfast. atorvastatin (LIPITOR) 10 mg tablet Take 1 tablet by mouth once daily. polyethylene glycol 3350 (MIRALAX) 17 gram/dose powder Take 17 g by mouth once daily. propranolol (INDERAL) 10 mg tablet Take 1 tablet by mouth twice daily. DULoxetine (CYMBALTA) 30 mg capsule Take 1 capsule by mouth once daily. metFORMIN ER (GLUCOPHAGE XR) 500 mg 24 hr tablet Take 2 tablets by mouth twice daily. lisinopril 2.5 mg tablet Take 1 tablet by mouth once daily. oxybutynin ER (DITROPAN XL) 10 mg 24 hr tablet Take 1 tablet by mouth once daily. hydrOXYzine pamoate (VISTARIL) 25 mg capsule Take 1 capsule by mouth three times daily as needed. [facility] gabapentin (NEURONTIN) 300 mg capsule Take 1 capsule by mouth three times daily. fluticasone (FLONASE) 50 mcg/actuation nasal spray Use 2 Sprays in each nostril once daily. Rinse mouth after use. loratadine (CLARITIN) 10 mg tablet Take 1 tablet by mouth once daily. pseudoephedrine HCl 30 mg CsTR Take 1-2 tablets by mouth every 6 hours as needed. oxyCODONE-acetaminophen (PERCOCET) 5-325 mg tablet Take 1 tablet by mouth every 4 hours as needed for Pain for up to 7 days. ibuprofen (MOTRIN) 600 mg tablet Take 1 tablet by mouth every 6 hours as needed for Pain for up to 10 days. No current facility-administered medications for this visit. ALLERGIES Allergen Reactions - Mushroom Anaphylaxis - Peanuts Anaphylaxis - Mri Contrast [Gadol* GI Upset REVIEW OF SYSTEMS: GENERAL: No weight loss, malaise or fevers GI: Negative for nausea , vomiting, diarrhea, constipation and signs of jaundice Positive for abdominal pain LUQ PHYSICAL EXAM: BP 122/100 Pulse 88 Ht 5' 2 (1.58m) Wt 233 lb (105.7kg) SpO2 99% BMI 42.61 kg/(m2). GENERAL APPEARANCE: Well appearing, alert, in no acute distress, well-hydrated, well nourished. and Overweight. ABDOMEN: Abdomen is soft. Incisions are healing well. There are no signs of infection. NEURO: Alert, oriented x3, no asterixis, speech clear and articulate and RODRÍGUEZ DATA: Diagnostic tests reviewed for today's visit: No new labs Greater than 50% of the direct patient contact time was spent in counseling or coordination of care. ASSESSMENT / PLAN 1. Incisional hernia with obstruction but no gangrene I instructed her to continue her pain regimen. I will see her again in several weeks for pain is not controlled. She may return to normal activity. - oxyCODONE-acetaminophen (PERCOCET) 5-325 mg tablet; Take 1 tablet by mouth every 4 hours as needed for Pain for up to 7 days. Dispense: 30 tablet; Refill: 0 - acetaminophen (TYLENOL) 325 mg tablet; Take 2 tablets by mouth every 6 hours as needed for up to 10 days. Dispense: 30 tablet; Refill: 1 - ibuprofen (MOTRIN) 600 mg tablet; Take 1 tablet by mouth every 6 hours as needed for Pain for up to 10 days. Dispense: 30 tablet; Refill: 0 Anne Christensen MD PROGRESS Observed: 01/08/2018 Status: COMPLETED Source: [place] 9:44 AM [facility] REPOSITORY HNO ID: [id number] Author: Abbe Naylor (Don) Monty Service: (none) Author Type: Nurse Practitioner Type: Progress Notes Filed: 01/08/2018 10:18 AM Note Text: Chief Complaint Patient presents with: Head Congestion: off and on x 3 months. Has been worse since about the middle of November HPI Debby Bailon is a 37 year old female who presents here today for Above Complaints. Patient of Dr. Dietz, chart reviewed. Reports h/o head congestion off and on for past 3 months. Sx worse since mid November. Has been on different antibiotics for different reasons the past 3 months, none have helped. Most recently on Augmentin 875 mg bid, prescribed from ER visit 12/16/17, completed 10 days course. Notes no improvement in sx. Sx include: frontal CUETO, eyes itchy, ears hurt, hurts to move her eyes. States poor sleep the past 3 days. [facility] Other sx: chills, no documented fever. Denies cough, wheeze, + SOB, sneezing. Denies h/o seasonal or environmental allergies. Past medical history, appointments, medications, allergies reviewed. Previous Medical History PAST MEDICAL HISTORY Diagnosis Date - Abnormal sensation of left upper and lower extremity 08/07/2013 - Anxiety - Arthritis started age 19 - Cervical radiculopathy 05/02/2013 - Chronic pain 02/12/2015 - Depressive disorder, not elsewhere classified 11/28/2011 [facility] - DJD (degenerative joint disease), thoracic - Dysthymic disorder Depression (non-psychotic), sees BRIM SHAPER at [facility]. 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 Seeing Dr. Gregg - Numbness and tingling of left arm and leg 08/07/2013 - Panic attacks - Recurrent UTI 11/28/2011 - Spina bifida (HCC) 01/06/2016 - Type 2 diabetes mellitus without complication (HCC) 02/12/2015 - Urinary tract infection, site not specified Recurrent UTI's - Ventral hernia without obstruction or gangrene - Weakness of left upper extremity 08/07/2013 Previous Surgical History PAST SURGICAL HISTORY Procedure Laterality Date - 2D ECHO (EXEP) 06/28/2017 EF=65%. nl - DANDC, DIAG AND/OR THERAPEUTIC Dilation AND curettage - PAST SURGICAL HISTORY OF cholecystectomy - PAST SURGICAL HISTORY OF 09/2012 back surgery x2 - PAST SURGICAL HISTORY OF Left AND 02/2014 foot x2 - PAST SURGICAL HISTORY OF 07/2015 Knapp stoma - REPAIR UMBILICAL HERNIA 12/11/2017 - STRESS TEST 07/18/2017 normal Family History FAMILY HISTORY Problem Relation Age of Onset - Arthritis Mother - Diabetes Mother - Heart Mother - Hypertension Mother - Lipids Mother - Stroke Mother - Thyroid Mother - Cancer Father Skin - Cancer Maternal Grandmother LIVER CANCER - Cancer Maternal Uncle Great Uncle - Cancer Maternal Uncle Great Uncle Patient Allergies ALLERGIES Allergen Reactions - Mushroom Anaphylaxis - Peanuts Anaphylaxis - Mri Contrast [Gadol* GI Upset Current Medications Current Outpatient Prescriptions on File Prior to Visit: oxyCODONE-acetaminophen (PERCOCET) 5-325 mg tablet Take 1 tablet by mouth every 4 hours as needed for Pain for up to 7 days. acetaminophen (TYLENOL) 325 mg tablet Take 2 tablets by mouth every 6 hours as needed for up to 10 days. ibuprofen (MOTRIN) 600 mg tablet Take 1 tablet by mouth every 6 hours as needed for Pain for up to 10 days. zolpidem (AMBIEN) 10 mg tab Take 1 tablet by mouth as needed. Blood-Glucose Meter (ACCU-CHEK ANISH) [facility] [place] 1 meter kit. Dx: Other DM Code E13.29 Lancets (ACCU-CHEK FASTCLIX) lancets Test blood sugar 2 times/day. Dx: Other DM Code E13.29 Insulin Use: No blood sugar diagnostic (ACCU-CHEK SMARTVIEW TEST STRIP) test strip Test blood sugar(s) 2 times daily. Dx: Other DM Code E13.29 Insulin: No COMPOUNDED PRESCRIPTION Stoma catheter tube.DX: Qo5.4 and K59.2 glimepiride (AMARYL) 4 mg tablet Take 1 tablet by mouth daily with breakfast. atorvastatin (LIPITOR) 10 mg tablet Take 1 tablet by mouth once daily. polyethylene glycol 3350 (MIRALAX) 17 gram/dose powder Take 17 g by mouth once daily. propranolol (INDERAL) 10 mg tablet Take 1 tablet by mouth twice daily. DULoxetine (CYMBALTA) 30 mg capsule Take 1 capsule by mouth once daily. metFORMIN ER (GLUCOPHAGE XR) 500 mg 24 hr tablet Take 2 tablets by mouth twice daily. lisinopril 2.5 mg tablet Take 1 tablet by mouth once daily. oxybutynin ER (DITROPAN XL) 10 mg 24 hr tablet Take 1 tablet by mouth once daily. hydrOXYzine pamoate (VISTARIL) 25 mg capsule Take 1 capsule by mouth three times daily as needed. [facility] gabapentin (NEURONTIN) 300 mg capsule Take 1 capsule by mouth three times daily. COMPOUNDED PRESCRIPTION Promogran, use as directed, ulcer of left 1st metatarsal, measurement: [id number], Dx: E11.621, L97.522 (Patient not taking: Reported on 10/05/2017 ) No current facility-administered medications on file prior to visit. 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 General Appearance: Well appearing, alert, in no acute distress, well-hydrated, well nourished. and Obese. Head: Normocephalic, no masses, lesions, tenderness or abnormalities. Eyes: Anicteric sclera. Pupils are equally round and reactive to light. Extraocular movements are intact. . Ears: External ears normal, canals clear. Nose/Sinuses: Nares normal, septum midline, mucosa normal, no drainage or sinus tenderness, Positive findings: mucosa swollen, pale, and boggy, clear rhinorrhea. Oropharynx: Lips, mucosa, and tongue normal, teeth and gums normal, oropharynx normal. Neck: Supple, no adenopathy; thyroid symmetric, normal size, Lungs: Lungs clear to auscultation. No wheezing, rhonchi, rales. Heart: RRR without murmur, gallop, or rubs. No ectopy. Health Maintenance List DILATED RETINAL EXAM due on 01/25/2018 INFLUENZA(1) due on 01/27/2018 HBA1C due on 01/10/2018 STATIN MED ADHERENCE due on 01/27/2018 DIABETES MED ADHERENCE due on 01/27/2018 DIABETIC FOOT EXAM due on 02/21/2018 LDL CHOLESTEROL due on 10/10/2018 ANNUAL PCP TEAM CHRONIC DISEASE VISIT due on 10/25/2018 DTAP,TDAP,TD(2 - Td) due on 09/09/2019 PAP EVERY 5 YEARS due on 07/28/2022 HPV EVERY 5 YEARS due on 07/28/2022 ONE PNEUMOVAX PRIOR TO AGE 65 Completed ASSESSMENT/PLAN: 1. Seasonal allergic rhinitis, unspecified trigger - ICD9: 477.9, ICD10: J30.2 - Explained antibiotics are not warranted at this time. Will have her begin nasal steroid therapy. Proper instillation reviewed along with potential side effects. Also will have her start Loratadine daily (not to take if also taking Hydroxyzine prescribed by counseling center) Patient verbalizes understanding. Then will also have her use behind the counter Pseudoephedrine during daytime and temporary use to help with congestion. Warned of insomnia if taking in PM. - Follow up in 3 weeks. - FLUTICASONE 50 MCG/ACTUATION NASAL SPRAY,SUSPENSION - LORATADINE 10 MG TABLET - PSEUDOEPHEDRINE 30 MG CAPSULE (TAMPER RESISTANT) Abbe Millan, MSN CLINICAL APPLICATION SPECIALIST.PRESSURIZATION MECHANIC CNOV Observed: 01/08/2018 Status: COMPLETED Source: [place] 9:[address] [facility] REPOSITORY [facility] DEBBY BAILON ([id number]) 1980 F Date Time Provider Department 01/08/18 9:40 AM ABBE MILLAN (BRIM SHAPER) ENRIQUE During your visit today, we recorded the following information about you: Temperature Pulse Respiration Blood pressure 97.7 degrees 72/minute 18/minute 110/86 Weight 108.4 kg Abbe Millan, MSN CLINICAL APPLICATION SPECIALIST.PRESSURIZATION MECHANIC 01/08/2018 10:18 AM Signed Chief Complaint Patient presents with: Head Congestion: off and on x 3 months. Has been worse since about the middle of November HPI Debby Bailon is a 37 year old female who presents here today for Above Complaints. Patient of Dr. Dietz, chart reviewed. Reports h/o head congestion off and on for past 3 months. Sx worse since mid November. Has been on different antibiotics for different reasons the past 3 months, none have helped. Most recently on Augmentin 875 mg bid, prescribed from ER visit 12/16/17, completed 10 days course. Notes no improvement in sx. Sx include: frontal CUETO, eyes itchy, ears hurt, hurts to move her eyes. States poor sleep the past 3 days. Treating with OTC cold and sinus med from [facility] without benefit. Other sx: chills, no documented fever. Denies cough, wheeze, + SOB, sneezing. Denies h/o seasonal or environmental allergies. Past medical history, appointments, medications, allergies reviewed. Previous Medical History PAST MEDICAL HISTORY Diagnosis Date - Abnormal sensation of left upper and lower extremity 08/07/2013 - Anxiety - Arthritis started age 19 - Cervical radiculopathy 05/02/2013 - Chronic pain 02/12/2015 - Depressive disorder, not elsewhere classified 11/28/2011 [facility] - DJD (degenerative joint disease), thoracic - Dysthymic disorder Depression (non-psychotic), sees BRIM SHAPER at [facility]. 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 Seeing Dr. Gregg - Numbness and tingling of left arm and leg 08/07/2013 - Panic attacks - Recurrent UTI 11/28/2011 - Spina bifida (HCC) 01/06/2016 - Type 2 diabetes mellitus without complication ([facility]) 02/12/2015 - Urinary tract infection, site not specified Recurrent UTI's - Ventral hernia without obstruction or gangrene - Weakness of left upper extremity 08/07/2013 Previous Surgical History PAST SURGICAL HISTORY Procedure Laterality Date - 2D ECHO (EXEP) 06/28/2017 EF=65%. nl - DANDC, DIAG AND/OR THERAPEUTIC Dilation AND curettage - PAST SURGICAL HISTORY OF cholecystectomy - PAST SURGICAL HISTORY OF 09/2012 back surgery x2 - PAST SURGICAL HISTORY OF Left AND 02/2014 foot x2 - PAST SURGICAL HISTORY OF 07/2015 Knapp stoma - REPAIR UMBILICAL HERNIA 12/11/2017 - STRESS TEST 07/18/2017 normal Family History FAMILY HISTORY Problem Relation Age of Onset - Arthritis Mother - Diabetes Mother - Heart Mother - Hypertension Mother - Lipids Mother - Stroke Mother - Thyroid Mother - Cancer Father Skin - Cancer Maternal Grandmother LIVER CANCER - Cancer Maternal Uncle Great Uncle - Cancer Maternal Uncle Great Uncle Patient Allergies ALLERGIES Allergen Reactions - Mushroom Anaphylaxis - Peanuts Anaphylaxis - Mri Contrast [Gadol* GI Upset Current Medications Current Outpatient Prescriptions on File Prior to Visit: oxyCODONE-acetaminophen (PERCOCET) 5-325 mg tablet Take 1 tablet by mouth every 4 hours as needed for Pain for up to 7 days. acetaminophen (TYLENOL) 325 mg tablet Take 2 tablets by mouth every 6 hours as needed for up to 10 days. ibuprofen (MOTRIN) 600 mg tablet Take 1 tablet by mouth every 6 hours as needed for Pain for up to 10 days. zolpidem (AMBIEN) 10 mg tab Take 1 tablet by mouth as needed. Blood-Glucose Meter (ACCU-CHEK ANISH) [facility] [place] [place]pense 1 meter kit. Dx: Other DM Code E13.29 Lancets (ACCU-CHEK FASTCLIX) lancets Test blood sugar 2 times/day. Dx: Other DM Code E13.29 Insulin Use: No blood sugar diagnostic (ACCU-CHEK SMARTVIEW TEST STRIP) test strip Test blood sugar(s) 2 times daily. Dx: Other DM Code E13.29 Insulin: No COMPOUNDED PRESCRIPTION Stoma catheter tube.DX: Qo5.4 and K59.2 glimepiride (AMARYL) 4 mg tablet Take 1 tablet by mouth daily with breakfast. atorvastatin (LIPITOR) 10 mg tablet Take 1 tablet by mouth once daily. polyethylene glycol 3350 (MIRALAX) 17 gram/dose powder Take 17 g by mouth once daily. propranolol (INDERAL) 10 mg tablet Take 1 tablet by mouth twice daily. DULoxetine (CYMBALTA) 30 mg capsule Take 1 capsule by mouth once daily. metFORMIN ER (GLUCOPHAGE XR) 500 mg 24 hr tablet Take 2 tablets by mouth twice daily. lisinopril 2.5 mg tablet Take 1 tablet by mouth once daily. oxybutynin ER (DITROPAN XL) 10 mg 24 hr tablet Take 1 tablet by mouth once daily. hydrOXYzine pamoate (VISTARIL) 25 mg capsule Take 1 capsule by mouth three times daily as needed. [facility] gabapentin (NEURONTIN) 300 mg capsule Take 1 capsule by mouth three times daily. COMPOUNDED PRESCRIPTION Promogran, use as directed, ulcer of left 1st metatarsal, measurement: [id number], Dx: E11.621, L97.522 (Patient not taking: Reported on 10/05/2017 ) No current facility-administered medications on file prior to visit. 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 General Appearance: Well appearing, alert, in no acute distress, well-hydrated, well nourished. and Obese. Head: Normocephalic, no masses, lesions, tenderness or abnormalities. Eyes: Anicteric sclera. Pupils are equally round and reactive to light. Extraocular movements are intact. . Ears: External ears normal, canals clear. Nose/Sinuses: Nares normal, septum midline, mucosa normal, no drainage or sinus tenderness, Positive findings: mucosa swollen, pale, and boggy, clear rhinorrhea. Oropharynx: Lips, mucosa, and tongue normal, teeth and gums normal, oropharynx normal. Neck: Supple, no adenopathy; thyroid symmetric, normal size, Lungs: Lungs clear to auscultation. No wheezing, rhonchi, rales. Heart: RRR without murmur, gallop, or rubs. No ectopy. Health Maintenance List DILATED RETINAL EXAM due on 01/25/2018 INFLUENZA(1) due on 01/27/2018 HBA1C due on 01/10/2018 STATIN MED ADHERENCE due on 01/27/2018 DIABETES MED ADHERENCE due on 01/27/2018 DIABETIC FOOT EXAM due on 02/21/2018 LDL CHOLESTEROL due on 10/10/2018 ANNUAL PCP TEAM CHRONIC DISEASE VISIT due on 10/25/2018 DTAP,TDAP,TD(2 - Td) due on 09/09/2019 PAP EVERY 5 YEARS due on 07/28/2022 HPV EVERY 5 YEARS due on 07/28/2022 ONE PNEUMOVAX PRIOR TO AGE 65 Completed ASSESSMENT/PLAN: 1. Seasonal allergic rhinitis, unspecified trigger - ICD9: 477.9, ICD10: J30.2 - Explained antibiotics are not warranted at this time. Will have her begin nasal steroid therapy. Proper instillation reviewed along with potential side effects. Also will have her start Loratadine daily (not to take if also taking Hydroxyzine prescribed by counseling center) Patient verbalizes understanding. Then will also have her use behind the counter Pseudoephedrine during daytime and temporary use to help with congestion. Warned of insomnia if taking in PM. - Follow up in 3 weeks. - FLUTICASONE 50 MCG/ACTUATION NASAL SPRAY,SUSPENSION - LORATADINE 10 MG TABLET - PSEUDOEPHEDRINE 30 MG CAPSULE (TAMPER RESISTANT) Abbe Millan, MSN CLINICAL APPLICATION SPECIALIST.PRESSURIZATION MECHANIC Referring Provider: SELF [[id number]] Allergies As of Date: 01/08/2018 Noted Allergy Reaction MUSHROOM 06/10/2016 10 - Anaphylaxis PEANUTS 06/10/2016 10 - Anaphylaxis MRI CONTRAST (GADOLINIUM-CONTAINI*01/03/2017 8 - GI Upset Date Reviewed: 01/08/2018 Reviewed by: Abbe Naylor (Preform Machine Operator) Monty - Fully Assessed Reason for Visit: Head Congestion [234] Cmt: off and on x 3 months. Has been worse since about the middle of November Primary Visit Diagnosis:Seasonal allergic rhinitis, unspecified trigger [J30.2] Order(s):fluticasone (FLONASE) 50 mcg/actuation nasal sprayUse 2 Sprays in each nostril once daily. Rinse mouth after use.Disp: 1 BottleRfl: 3 loratadine (CLARITIN) 10 mg tabletTake 1 tablet by mouth once daily.Disp: 30 tabletRfl: 11 pseudoephedrine HCl 30 mg CsTRTake 1-2 tablets by mouth every 6 hours as needed.Disp: 30 EachRfl: 1 Prescriptions as of 01/08/2018 Sig: OXYCODONE-ACETAMINOPHEN 5 MG-* Take 1 tablet by mouth every * ACETAMINOPHEN 325 MG TABLET Take 2 tablets by mouth every* IBUPROFEN 600 MG TABLET Take 1 tablet by mouth every * ZOLPIDEM 10 MG TABLET Take 1 tablet by mouth as nee* BLOOD-GLUCOSE METER Dispense 1 meter kit. Dx: Ot* LANCETS Test blood sugar 2 times/day* BLOOD SUGAR DIAGNOSTIC STRIPS Test blood sugar(s) 2 times d* COMPOUNDED PRESCRIPTION Stoma catheter tube. DX: Qo5* GLIMEPIRIDE 4 MG TABLET Take 1 tablet by mouth daily * ATORVASTATIN 10 MG TABLET Take 1 tablet by mouth once d* POLYETHYLENE GLYCOL 3350 17 G* Take 17 g by mouth once daily. PROPRANOLOL 10 MG TABLET Take 1 tablet by mouth twice * DULOXETINE 30 MG CAPSULE,SHERRY* Take 1 capsule by mouth once * METFORMIN ER 500 MG TABLET,EX* Take 2 tablets by mouth twice* LISINOPRIL 2.5 MG TABLET Take 1 tablet by mouth once d* OXYBUTYNIN CHLORIDE ER 10 MG * Take 1 tablet by mouth once d* HYDROXYZINE PAMOATE 25 MG CAP* Take 1 capsule by mouth three* GABAPENTIN 300 MG CAPSULE Take 1 capsule by mouth three* FLUTICASONE 50 MCG/ACTUATION * Use 2 Sprays in each nostril * LORATADINE 10 MG TABLET Take 1 tablet by mouth once d* PSEUDOEPHEDRINE 30 MG CAPSULE* Take 1-2 tablets by mouth sarah* Medication notes this encounter COMPOUNDED PRESCRIPTION >> Simeon Rutherford LPN 01/08/2018 9:27 AM >> SIMEON RUTHERFORD LPN MonJan 08, 2018 9:27 AM Not taking. Simeon Rutherford LPN Problem List As Of Date 01/08/2018 Noted Resolved Threatened , antepartum [O20.0] INVALID FOR*04/07/2011 Supervision of normal first [Z34.00] INVALID FOR*04/07/2011 Cyst of ovary [N83.209] INVALID FOR* Priority: C Depressive disorder, not elsewhere classified [*INVALID FOR*01/06/2016 Priority: A More... Anxiety [F41.9] INVALID FOR* Priority: A More... Recurrent UTI [N39.0] INVALID FOR* Priority: C Dysthymic disorder [F34.1] Priority: A More... Panic attacks [F41.0] Priority: A Neck pain [M54.2] INVALID FOR* Priority: M Cervical radiculopathy [M54.12] INVALID FOR* Priority: M Weakness of both upper extremities [R29.898] INVALID FOR* Priority: M More... Muscle weakness of lower extremity [M62.81] INVALID FOR* Priority: M More... Numbness and tingling of left arm and leg [R20.*INVALID FOR* Priority: M Abnormal sensation of left upper and lower extr*INVALID FOR*01/06/2016 Priority: D Lipomeningocele ([facility]) [Q05.9] INVALID FOR* Priority: B Lumbago [M54.5] INVALID FOR* Priority: M Neuropathy (HCC) [G62.9] INVALID FOR* Priority: A More... Morbid obesity (HCC) [E66.01] INVALID FOR* Priority: B Chronic pain [G89.29] INVALID FOR* Priority: M Neurogenic bladder [N31.9] INVALID FOR* Priority: B Hydronephrosis, right [N13.30] INVALID FOR* Priority: C History of kidney stones [Z87.442] INVALID FOR* Priority: C Spina bifida ([facility]) [Q05.9] INVALID FOR* Priority: B Neurogenic bowel [K59.2] INVALID FOR* Priority: B Primary insomnia [F51.01] INVALID FOR* Priority: A Type 2 diabetes mellitus with proteinuria ([facility])*INVALID FOR* Priority: A Pyelonephritis [N12] INVALID FOR* Diabetic eye exam ([facility]) [Z01.00, E11.9] INVALID FOR* Priority: A More... Migraine without aura and without status migrai*INVALID FOR* Priority: A Type 2 diabetes mellitus with albuminuria ([facility])*INVALID FOR* Priority: A Well adult exam [Z00.00] INVALID FOR* Priority: E More... Ulcer of left foot ([facility]) [L97.529] INVALID FOR* Priority: M Paroxysmal SVT (supraventricular tachycardia) (*INVALID FOR* Priority: A More... DM (diabetes mellitus), secondary, uncontrolled*INVALID FOR* Priority: A S/P hernia repair [Z98.890, Z87.19] INVALID FOR* Thyroid cyst [E04.1] INVALID FOR* More... Prescriptions ordered this encounter Disp Refills Start End FLUTICASONE 50 MCG/ACTUATION NASAL S* 1 Derick* 3 01/08/2018 Route: EACH NOSTRIL Sig: Use 2 Sprays in each nostril once daily. Rinse mouth after use. LORATADINE 10 MG TABLET 30 t* 11 01/08/2018 Route: ORAL Sig: Take 1 tablet by mouth once daily. PSEUDOEPHEDRINE 30 MG CAPSULE (TAMPE* 30 E* 1 01/08/2018 Route: ORAL Sig: Take 1-2 tablets by mouth every 6 hours as needed. Medications Discontinued During This Encounter COMPOUNDED PRESCRIPTION 1 Pa* 3 03/01/2017 01/08/2018 Class: Print RX Sig: Promogran, use as directed, ulcer of left 1st metatarsal, measurement: [id number], Dx: E11.621, L97.522 Patient not taking: Reported on 10/05/2017 Disc: Course of therapy completed Disposition: Return in about 3 weeks (around 01/29/2018). Follow-up and Disposition History Recorded Encounter Status:Closed by ABBE MILLAN PRESSURIZATION MECHANIC on 01/08/18 CNOV Observed: 01/02/2018 Status: COMPLETED Source: [place] 2:30 PM [facility] RE[facility] Office Visit (AGGENS1) UVALDODEBBY Alvarenga ([id number]) 1980 F Date Time Provider Department 01/02/18 2:30 PM ANNE CHRISETNSEN AGGENS1 During your visit today, we recorded the following information about you: Pulse Blood pressure Weight Height 88/minute 122/100 105.7 kg 1.575 m Anne Christensen MD 01/02/2018 3:12 PM Signed Please call the office if your pain does not improve in several weeks. Anne Christensen MD 01/15/2018 1:47 PM Signed Patient referred by: SELF Patient presents with: Post-Op Visit: Here for follow up for unbilical hernia surgery. HPI: This is a post operative visit. 37-year-old female status post repair of ventral incisional hernia. She is doing well. She's having output without flushing her Knapp stoma. She has no nausea or vomiting. Her incision is healing well. PAST MEDICAL HISTORY Diagnosis Date - Abnormal sensation of left upper and lower extremity 08/07/2013 - Anxiety - Arthritis started age 19 - Cervical radiculopathy 05/02/2013 - Chronic pain 02/12/2015 - Depressive disorder, not elsewhere classified 11/28/2011 [facility] - DJD (degenerative joint disease), thoracic - Dysthymic disorder Depression (non-psychotic), sees BRIM SHAPER at [facility]. 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 Seeing Dr. Gregg - Numbness and tingling of left arm and leg 08/07/2013 - Panic attacks - Recurrent UTI 11/28/2011 - Spina bifida (HCC) 01/06/2016 - Type 2 diabetes mellitus without complication ([facility]) 02/12/2015 - Urinary tract infection, site not specified Recurrent UTI's - Ventral hernia without obstruction or gangrene - Weakness of left upper extremity 08/07/2013 PAST SURGICAL HISTORY Procedure Laterality Date - 2D ECHO (EXEP) 06/28/2017 EF=65%. nl - DANDC, DIAG AND/OR THERAPEUTIC Dilation AND curettage - PAST SURGICAL HISTORY OF cholecystectomy - PAST SURGICAL HISTORY OF 09/2012 back surgery x2 - PAST SURGICAL HISTORY OF Left AND 02/2014 foot x2 - PAST SURGICAL HISTORY OF 07/2015 Knapp stoma - REPAIR UMBILICAL HERNIA 12/11/2017 - STRESS TEST 07/18/2017 normal FAMILY HISTORY Problem Relation Age of Onset - Arthritis Mother - Diabetes Mother - Heart Mother - Hypertension Mother - Lipids Mother - Stroke Mother - Thyroid Mother - Cancer Father Skin - Cancer Maternal Grandmother LIVER CANCER - Cancer Maternal Uncle Great Uncle - Cancer Maternal Uncle Great Uncle Social History Marital status: Spouse name: MEHDI Years of education: 12 Number of children: 0 Occupational History 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 Blood-Glucose Meter (ACCU-CHEK ANISH) [facility] [place] 1 meter kit. Dx: Other DM Code E13.29 Lancets (ACCU-CHEK FASTCLIX) lancets Test blood sugar 2 times/day. Dx: Other DM Code E13.29 Insulin Use: No blood sugar diagnostic (ACCU-CHEK SMARTVIEW TEST STRIP) test strip Test blood sugar(s) 2 times daily. Dx: Other DM Code E13.29 Insulin: No COMPOUNDED PRESCRIPTION Stoma catheter tube.DX: Qo5.4 and K59.2 glimepiride (AMARYL) 4 mg tablet Take 1 tablet by mouth daily with breakfast. atorvastatin (LIPITOR) 10 mg tablet Take 1 tablet by mouth once daily. polyethylene glycol 3350 (MIRALAX) 17 gram/dose powder Take 17 g by mouth once daily. propranolol (INDERAL) 10 mg tablet Take 1 tablet by mouth twice daily. DULoxetine (CYMBALTA) 30 mg capsule Take 1 capsule by mouth once daily. metFORMIN ER (GLUCOPHAGE XR) 500 mg 24 hr tablet Take 2 tablets by mouth twice daily. lisinopril 2.5 mg tablet Take 1 tablet by mouth once daily. oxybutynin ER (DITROPAN XL) 10 mg 24 hr tablet Take 1 tablet by mouth once daily. hydrOXYzine pamoate (VISTARIL) 25 mg capsule Take 1 capsule by mouth three times daily as needed. [facility] gabapentin (NEURONTIN) 300 mg capsule Take 1 capsule by mouth three times daily. fluticasone (FLONASE) 50 mcg/actuation nasal spray Use 2 Sprays in each nostril once daily. Rinse mouth after use. loratadine (CLARITIN) 10 mg tablet Take 1 tablet by mouth once daily. pseudoephedrine HCl 30 mg CsTR Take 1-2 tablets by mouth every 6 hours as needed. oxyCODONE-acetaminophen (PERCOCET) 5-325 mg tablet Take 1 tablet by mouth every 4 hours as needed for Pain for up to 7 days. ibuprofen (MOTRIN) 600 mg tablet Take 1 tablet by mouth every 6 hours as needed for Pain for up to 10 days. No current facility-administered medications for this visit. ALLERGIES Allergen Reactions - Mushroom Anaphylaxis - Peanuts Anaphylaxis - Mri Contrast [Gadol* GI Upset REVIEW OF SYSTEMS: GENERAL: No weight loss, malaise or fevers GI: Negative for nausea , vomiting, diarrhea, constipation and signs of jaundice Positive for abdominal pain LUQ PHYSICAL EXAM: BP 122/100 Pulse 88 Ht 5' 2 (1.58m) Wt 233 lb (105.7kg) SpO2 99% BMI 42.61 kg/(m2). GENERAL APPEARANCE: Well appearing, alert, in no acute distress, well-hydrated, well nourished. and Overweight. ABDOMEN: Abdomen is soft. Incisions are healing well. There are no signs of infection. NEURO: Alert, oriented x3, no asterixis, speech clear and articulate and RODRÍGUEZ DATA: Diagnostic tests reviewed for today's visit: No new labs Greater than 50% of the direct patient contact time was spent in counseling or coordination of care. ASSESSMENT / PLAN 1. Incisional hernia with obstruction but no gangrene I instructed her to continue her pain regimen. I will see her again in several weeks for pain is not controlled. She may return to normal activity. - oxyCODONE-acetaminophen (PERCOCET) 5-325 mg tablet; Take 1 tablet by mouth every 4 hours as needed for Pain for up to 7 days. Dispense: 30 tablet; Refill: 0 - acetaminophen (TYLENOL) 325 mg tablet; Take 2 tablets by mouth every 6 hours as needed for up to 10 days. Dispense: 30 tablet; Refill: 1 - ibuprofen (MOTRIN) 600 mg tablet; Take 1 tablet by mouth every 6 hours as needed for Pain for up to 10 days. Dispense: 30 tablet; Refill: 0 Anne Christensen MD Referring Provider: SELF [[id number]] Allergies As of Date: 01/02/2018 Noted Allergy Reaction MUSHROOM 06/10/2016 10 - Anaphylaxis PEANUTS 06/10/2016 10 - Anaphylaxis MRI CONTRAST (GADOLINIUM-CONTAINI*01/03/2017 8 - GI Upset Date Reviewed: 01/02/2018 Reviewed by: Anne Christensen - Fully Assessed Reason for Visit: Post-Op Visit [1236] Cmt: Here for follow up for unbilical hernia surgery. Primary Visit Diagnosis:Incisional hernia with obstruction but no gangrene [K43.0] Order(s):oxyCODONE-acetaminophen (PERCOCET) 5-325 mg tabletTake 1 tablet by mouth every 4 hours as needed for Pain for up to 7 days.Disp: 30 tabletRfl: 0 [] acetaminophen (TYLENOL) 325 mg tabletTake 2 tablets by mouth every 6 hours as needed for up to 10 days.Disp: 30 tabletRfl: 1 ibuprofen (MOTRIN) 600 mg tabletTake 1 tablet by mouth every 6 hours as needed for Pain for up to 10 days.Disp: 30 tabletRfl: 0 Prescriptions as of 01/02/2018 Sig: ACETAMINOPHEN 325 MG TABLET Take 2 tablets by mouth every* ZOLPIDEM 10 MG TABLET Take 1 tablet by mouth as nee* BLOOD-GLUCOSE METER Dispense 1 meter kit. Dx: Ot* LANCETS Test blood sugar 2 times/day* BLOOD SUGAR DIAGNOSTIC STRIPS Test blood sugar(s) 2 times d* COMPOUNDED PRESCRIPTION Stoma catheter tube. DX: Qo5* GLIMEPIRIDE 4 MG TABLET Take 1 tablet by mouth daily * ATORVASTATIN 10 MG TABLET Take 1 tablet by mouth once d* POLYETHYLENE GLYCOL 3350 17 G* Take 17 g by mouth once daily. PROPRANOLOL 10 MG TABLET Take 1 tablet by mouth twice * DULOXETINE 30 MG CAPSULE,SHERRY* Take 1 capsule by mouth once * METFORMIN ER 500 MG TABLET,EX* Take 2 tablets by mouth twice* LISINOPRIL 2.5 MG TABLET Take 1 tablet by mouth once d* OXYBUTYNIN CHLORIDE ER 10 MG * Take 1 tablet by mouth once d* HYDROXYZINE PAMOATE 25 MG CAP* Take 1 capsule by mouth three* GABAPENTIN 300 MG CAPSULE Take 1 capsule by mouth three* OXYCODONE-ACETAMINOPHEN 5 MG-* Take 1 tablet by mouth every * IBUPROFEN 600 MG TABLET Take 1 tablet by mouth every * X COMPOUNDED PRESCRIPTION Promogran, use as directed, u* Patient not taking: Reported on 10/05/2017 Problem List As Of Date 01/02/2018 Noted Resolved Threatened , antepartum [O20.0] INVALID FOR*04/07/2011 Supervision of normal first [Z34.00] INVALID FOR*04/07/2011 Cyst of ovary [N83.209] INVALID FOR* Priority: C Depressive disorder, not elsewhere classified [*INVALID FOR*01/06/2016 Priority: A More... Anxiety [F41.9] INVALID FOR* Priority: A More... Recurrent UTI [N39.0] INVALID FOR* Priority: C Dysthymic disorder [F34.1] Priority: A More... Panic attacks [F41.0] Priority: A Neck pain [M54.2] INVALID FOR* Priority: M Cervical radiculopathy [M54.12] INVALID FOR* Priority: M Weakness of both upper extremities [R29.898] INVALID FOR* Priority: M More... Muscle weakness of lower extremity [M62.81] INVALID FOR* Priority: M More... 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 Morbid obesity (HCC) [E66.01] INVALID FOR* Priority: B Chronic pain [G89.29] INVALID FOR* Priority: M Neurogenic bladder [N31.9] INVALID FOR* Priority: B Hydronephrosis, right [N13.30] INVALID FOR* Priority: C History of kidney stones [Z87.442] INVALID FOR* Priority: C Spina bifida (HCC) [Q05.9] INVALID FOR* Priority: B Neurogenic bowel [K59.2] INVALID FOR* Priority: B Primary insomnia [F51.01] INVALID FOR* Priority: A Type 2 diabetes mellitus with proteinuria ([facility])*INVALID FOR* Priority: A Pyelonephritis [N12] INVALID FOR* Diabetic eye exam ([facility]) [Z01.00, E11.9] INVALID FOR* Priority: A More... Migraine without aura and without status migrai*INVALID FOR* Priority: A Type 2 diabetes mellitus with albuminuria ([facility])*INVALID FOR* Priority: A Well adult exam [Z00.00] INVALID FOR* Priority: E More... Ulcer of left foot ([facility]) [L97.529] INVALID FOR* Priority: M Paroxysmal SVT (supraventricular tachycardia) (*INVALID FOR* Priority: A More... DM (diabetes mellitus), secondary, uncontrolled*INVALID FOR* Priority: A S/P hernia repair [Z98.890, Z87.19] INVALID FOR* Thyroid cyst [E04.1] INVALID FOR* More... Other instructions from your clinician: Please call the office if your pain does not improve in several weeks. Prescriptions ordered this encounter Disp Refills Start End OXYCODONE-ACETAMINOPHEN 5 MG-325 MG * 30 t* 0 01/02/2018 01/09/2018 Class: Print RX Route: ORAL Sig: Take 1 tablet by mouth every 4 hours as needed for Pain for up to 7 days. ACETAMINOPHEN 325 MG TABLET 30 t* 1 01/02/2018 01/12/2018 Route: ORAL Sig: Take 2 tablets by mouth every 6 hours as needed for up to 10 days. IBUPROFEN 600 MG TABLET 30 t* 0 01/02/2018 01/12/2018 Route: ORAL Sig: Take 1 tablet by mouth every 6 hours as needed for Pain for up to 10 days. Medications Discontinued During This Encounter oxyCODONE-acetaminophen (PERCOCET) 5* 28 t* 0 12/12/2017 01/02/2018 Class: Print RX Route: ORAL Sig: Take 1 tablet by mouth every 6 hours as needed for up to 7 days. Disc: Reason for discontinue is not on file. acetaminophen (TYLENOL) 325 mg tablet 30 t* 1 12/26/2017 01/02/2018 Class: Print RX Route: ORAL Sig: Take 2 tablets by mouth every 6 hours as needed for up to 10 days. Disc: Reason for discontinue is not on file. Encounter Status:Closed by ANNE CHRISTENSEN MD on 01/15/18 PROGRESS Observed: 01/01/2018 Status: COMPLETED Source: [place] 1:[address] [facility] REPOSITORY HNO ID: [id number] Author: Megan Gonzalez Service: (none) Author Type: Back Strip Machine Operator Type: Progress Notes Filed: 01/01/2018 1:27 PM Note Text: Radiology Service Progress Note PATIENT NAME: Debby Bailon DATE OF SERVICE: January 01, 2018 TIME: 1:27 PM PATIENT IDENTITY VERIFICATION COMPLETED USING TWO (2) METHODS: Patient confirmed name verbally and Date of . PATIENT GENDER DATA: Female. status: : No status: N/A PATIENT RELEVANT IMPLANT DATA REVIEWED: Not Applicable RADIOLOGY DEPARTMENT: Ultrasound THYROID PERIPHERAL IV DATA: Not applicable SIGNED BY: MEGAN GONZALEZ RDMS RVT January 01, 2018 1:27 PM US THYROID/PARATHYROID Observed: 01/01/2018 Status: F Source: [place] 1:[address] [facility] REPOSITORY * * *Final Report* * * DATE OF [facility]AM: Jan 01 2018 [facility]PARATHYROID / PROCEDURE REASON: Nontoxic single thyroid nodule * * * * Physician Interpretation * * * * EXAMINATION: US THYROID/PARATHYROID CLINICAL HISTORY: Cystic nodule in the right Comparison: None RESULT: Right thyroid lobe measures 5.5 x 2.5 x 2.4 cm. Left thyroid lobe measures 4.5 x 1.5 x 1.5 cm. Isthmus measures 0.2 cm. Several predominantly cystic nodules are seen within the right thyroid lobe. The largest is inferior, septated, and measures 2.4 x 1.6 x 1.1 cm. Each of the additional nodules is near 1 cm in size. No significant vascularity in any of the nodules. No suspicious nodule or mass elsewhere. IMPRESSION: Complex cystic nodules on the right ,including dominant complex cystic nodule within the inferior right thyroid lobe. No suspicious or solid mass Paper Rewinder Operator: PSCB Transcribe Date/Time: Jan 01 2018 6:12P Dictated by : GAMA TAPIA MD This examination was interpreted and the report reviewed and electronically signed by: GAMA TAPIA MD on Jan 01 2018 6:14PM EST [id number] ED NOTE Observed: 12/26/2017 Status: COMPLETED Source: [place] 12:27 PM [facility] REPOSITORY HNO ID: [id number] Author: Kati Hinojosa) VERNON Be Service: Emergency Medicine Author Type: Registered Nurse Type: ED Notes Filed: 12/26/2017 12:27 PM Note Text: Pt given icepack . Aware up for d/c . Aware waiting on paperwork ED PROV NOTE Observed: 12/26/2017 Status: COMPLETED Source: [place] 12:[address] [facility] REPOSITORY HNO ID: [id number] Author: Annamaria Petersen MD Service: Emergency Medicine Author Type: Physician Type: ED Provider Notes Filed: 12/26/2017 12:17 PM Note Text: The patient was 2 weeks status post hernia surgery. She reports that she fell. She states that she ran out of her pain medication. She has had 5 consistent emergency department for abdominal pain, similar complaints and recently had a CAT scan which showed no new pathology. On exam, the patient appears to be comfortable. There is no ecchymosis to the abdominal wall, and her surgical incision is intact and clean. She has minimal tenderness to palpation. I do not feel that narcotics are indicated at this time. She has been advised to use ice pack and Tylenol for her discomfort. She'll be discharged in stable condition. Annamaria Petersen MD 12/26/17 1217 ED NOTE Observed: 12/26/2017 Status: COMPLETED Source: [place] 11:34 AM [facility] RE[facility] HNO ID: [id number] Author: Kati Be RN Service: Emergency Medicine Author Type: Registered Nurse Type: ED Notes Filed: 12/26/2017 11:34 AM Note Text: Visitor at bedside. ED PROV NOTE Observed: 12/26/2017 Status: COMPLETED Source: [place] 11:12 AM [facility] HNO ID: [id number] Author: Annamaria Petersen MD Service: Emergency Medicine Author Type: Physician Type: ED Provider Notes Filed: 12/27/2017 3:55 PM Note Text: ED Provider Note Patient Name: Debby Bailon SERVICE DATE: 12/26/17 History Patient presents with: Abdominal Pain: pt had hernia surgery on the 12/11, pt fell due to ankle rolling, states fell on stomach. denies any bleeding from site. dressings intact. AANDOx3, MAEx4. The patient is a 37 year old female with a signficant past medical history of a parastomal hernia repair on 12/11/[address] Christensen, who presents to the ED for evaluation of abdominal pain after a mechanical fall at 9 AM. The patient states her left ankle gave out twice, and she landed directly onto her stomach. Patient describes the pain as sharp and most pronounced around the surgical incision sites. Patient states she ran out of her Percocet for pain control. She endorses associated nausea without emesis. The patient has been evaluated multiple times since her surgery with two CT scans, and she is currently on a course of amoxicillin. The patient's symptoms are made worse with palpation. The umbilical surgical site has minimal drainage. The patient has not tried anything for her symptoms. The patient denies fever, chills, chest pain, dyspnea, trauma to the head, loss of consciousness, blood thinner usage, neck pain, back pain, diarrhea, constipation, melena, hematochezia, UTI symptoms, hematuria, or additional complaints. PAST MEDICAL HISTORY Diagnosis Date - Abnormal sensation of left upper and lower extremity 08/07/2013 - Anxiety - Arthritis started age 19 - Cervical radiculopathy 05/02/2013 - Chronic pain 02/12/2015 - Depressive disorder, not elsewhere classified 11/28/2011 [facility] - DJD (degenerative joint disease), thoracic - Dysthymic disorder Depression (non-psychotic), sees BRIM SHAPER at [facility]. 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 Seeing Dr. Gregg - Numbness and tingling of left arm and leg 08/07/2013 - Panic attacks - Recurrent UTI 11/28/2011 - Spina bifida (HCC) 01/06/2016 - Type 2 diabetes mellitus without complication ([facility]) 02/12/2015 - Urinary tract infection, site not specified Recurrent UTI's - Ventral hernia without obstruction or gangrene - Weakness of left upper extremity 08/07/2013 PAST SURGICAL HISTORY Procedure Laterality Date - 2D ECHO (EXEP) 06/28/2017 EF=65%. nl - DANDC, DIAG AND/OR THERAPEUTIC Dilation AND curettage - PAST SURGICAL HISTORY OF cholecystectomy - PAST SURGICAL HISTORY OF 09/2012 back surgery x2 - PAST SURGICAL HISTORY OF Left AND 02/2014 foot x2 - PAST SURGICAL HISTORY OF 07/2015 Knapp stoma - STRESS TEST 07/18/2017 normal FAMILY HISTORY Problem Relation Age of Onset - Arthritis Mother - Diabetes Mother - Heart Mother - Hypertension Mother - Lipids Mother - Stroke Mother - Thyroid Mother - Cancer Father Skin - Cancer Maternal Grandmother LIVER CANCER - Cancer Maternal Uncle Great Uncle - Cancer Maternal Uncle Great Uncle Social History Social History Main Topics - Smoking status: Never Smoker - Smokeless tobacco: Never Used - Alcohol use Yes Comment: SOCIALLY - Drug use: No - Sexual activity: Not Currently Partners: Male control/ protection: None ALLERGIES Allergen Reactions - Mushroom Anaphylaxis - Peanuts Anaphylaxis - Mri Contrast [Gadol* GI Upset Review of Systems Constitutional: Negative for activity change, appetite change, chills and fever. Eyes: Negative for photophobia and visual disturbance. Respiratory: Negative for cough and shortness of breath. Cardiovascular: Negative for chest pain, palpitations and leg swelling. Gastrointestinal: Positive for abdominal pain and nausea. Negative for abdominal distention, constipation, diarrhea and vomiting. Genitourinary: Negative for dysuria, flank pain, frequency and hematuria. Musculoskeletal: Negative for arthralgias, back pain, joint swelling, myalgias, neck pain and neck stiffness. Skin: Negative for rash and wound. Allergic/Immunologic: Negative for immunocompromised state. Neurological: Negative for dizziness, weakness, light-headedness, numbness and headaches. Psychiatric/Behavioral: Negative for suicidal ideas. Physical Exam BP 127/83 Pulse 69 Temp (Src) 97.2 (Oral) Resp 18 Ht 5' 2 (1.58m) Wt 235 lb (106.6kg) SpO2 97% BMI 42.97 kg/(m2). Physical Exam Constitutional: She is oriented to person, place, and time. She appears well-developed and well-nourished. No distress. HENT: Head: Normocephalic and atraumatic. Right Ear: External ear normal. Left Ear: External ear normal. Mouth/Throat: Oropharynx is clear and moist. Eyes: Conjunctivae and EOM are normal. Neck: Normal range of motion. Neck supple. Cardiovascular: Normal rate, regular rhythm and normal heart sounds. Exam reveals no gallop and no friction rub. No murmur heard. Pulmonary/Chest: Effort normal and breath sounds normal. No respiratory distress. She has no wheezes. She has no rales. Abdominal: Soft. Bowel sounds are normal. She exhibits no distension. There is tenderness. There is no guarding. Musculoskeletal: Normal range of motion. She exhibits no edema, tenderness or deformity. Neurological: She is alert and oriented to person, place, and time. No cranial nerve deficit or sensory deficit. Coordination normal. Skin: Skin is warm and dry. No rash noted. No erythema. No pallor. Nursing note and vitals reviewed. Diagnostic Testing ED Labs Ordered and Reviewed - No data to display Procedures ED Course / Clinical Impression Clinical Impressions as of Dec 26 1232 Contusion of abdominal wall, initial encounter MDM / Disposition / Plan The patient is a 37 year old female with a signficant past medical history of a parastomal hernia repair on 12/11/[address] Christensen, who presents to the ED for evaluation of abdominal pain after a mechanical fall at 9 AM. The patient was evaluated by myself and the attending physician. The patient is hemodynamically stable. The patient appears to be in no acute distress. Physical exam demonstrates diffuse mild abdominal pain without peritoneal signs. Surgical sites are intact. I do not believe the patient requires laboratory studies or imaging at this time, especially because she has had recent CT scans of the abdomen. The patient was informed about these findings. The patient was given an ice pack, Toradol, and Tylenol prior to discharge. The patient was given a prescription for Tylenol. Follow-up instructions and return precautions were discussed. All questions were answered. The patient was agreeable with this plan. The patient was discharged in stable condition. SIGNATURE: MD Mark Carter (Chioma Nagel MD Resident 12/27/17 1526 Attending Note I evaluated the patient and personally participated in the peters components. I agree with the resident's findings and plan as documented and have discussed the case and management of the patient's care with the resident. Signature: Annamaria Petersen MD Date: 12/27/2017 Time: 3:55 PM Annamaria Petersen MD 12/27/17 1555 EMERGENCY DEPARTMENT Observed: 12/24/2017 Status: F Source: PATRIOT SUMMARY 3:43 PM [facility] REPOSITORY [facility] Medical Records Department [address] [place] [address] Emergency Department Summary 12/24/17 0735 MR#: [id number] Acct: [id number] Name: DEBBY BAILON Rep #: [id number] : 1980 37 From: Jayson Yost MD PCP: Will Dietz MD Status: DEP ER - ER Visit Summary Date of Service: 12/24/17 Chief Complaint: [Abdominal pain] History of Present Illness: The patient is a 37 F with abdominal pain for the past 2 weeks since her recent abdominal hernia surgery done at [facility]. She has no fever or chills she did notice some discharge from the umbilicus over the past week, it is clear. No fever or chills. No significant abdominal distention, she is making bowel movements. She was seen for this in our emergency department 3 times prior for pain control. She was given antibiotics which she is taken sporadically. She does not have any analgesia left at home. Physical Examination: She appears slightly anxious, does not appear toxic. She is morbidly obese. Moist mucous membranes, no obvious facial deformity No C-spine tenderness supple neck. Regular rate and rhythm without any obvious murmurs Clear lungs bilaterally speaking in full sentences without any obvious respiratory distress Abdomen soft with some tenderness especially in the periumbilical region. The laparoscopic incisions are clean dry and intact, there is a small area of ecchymosis on her abdominal wall inferior to the umbilicus, about 3 mm x 3 mm. Slight discharge from the umbilicus, this is clear, no obvious fistula on exam. Moves all extremities without any difficulty or pain. Skin does not show any obvious rashes or lesions, no trauma. Alert oriented 3 with no gross focal deficit Emergency Department Course and Treatment: [CT is unremarkable and unchanged from before there is a small fluid collection which may cause her leak, this does not appear infected I stressed the importance of following up with her surgeon. She is taking her antibiotics sporadically I also encouraged her to take them as directed. She appears stable she will be discharged in stable condition to follow-up. Impression: [Abdominal pain] This note was generated with EverTune dictation software. It may contain incorrect words, spelling, and punctuation that were not noted in review of the chart prior to signing ED Disposition - Plan for ED Patient: Disposition: Home or Assisted Living Chief Complaint: Abd Pain Instructions: Abdominal Pain Prescriptions: Hydrocodone Bitart/Apap 5-325 [Lanett 5/325] 1 - 2 tab PO Q4H PRN PRN #3 tab PRN Reason: Pain Referrals: Will Dietz MD [Primary Care Provider] - 2 Days What to do if you have Problems For any increased pain, shortness of breath, bleeding, nausea or vomiting, chest pain, or any unexpected problems, contact your Primary Care Provider. Call [facility] ([phone]) or report to the closest Emergency Room. Call 911 if necessary. 12/24/17 1543 <Electronically signed by Jayson Yost MD> Date Jayson Yost MD Cosigner Signature (If Indicated): Date CC: Will Dietz MD CBC W/DIFF, AUTOMATED Collected: 12/24/2017 Status: F Source: NORMA 7:45 AM [facility] REPOSITORY TYPE CODE TESTS RESULT OUT OF RANGE REFERENCE UNITS LAB L100.1000 4.4-11.0 K/mm3 High WBC 11.3 LAB L100.1200 4.2-5.4 M/mm3 Normal RBC 4.25 LAB L100.1300 12.0-15.0 g/dl Normal HGB 12.5 LAB L100.1400 37-47 % Normal HCT 38.6 LAB L100.1500 81-99 fL Normal MCV 90.8 LAB L100.1600 27.0-32.0 pg Normal MCH 29.4 LAB L100.1700 32-36 g/gl Normal MCHC 32.4 LAB L100.1810 11.6-14.6 % Normal RDW CV 13.9 LAB L100.1820 35.1-43.9 fl High RDW SD 45.8 LAB L100.1900 150-450 K/mm3 Normal PLT 241 LAB L100.2000 6.2-12.0 fl Normal MPV 10.5 LAB L100.2100 47-70 % Normal NEUT% 56.1 LAB L100.2200 19-41 % Normal LY% 26.8 LAB L100.2300 0-10 % High MONO% 11.3 LAB L100.2400 0-5 % Normal EO% 5.0 LAB L100.2500 0-1 % Normal BASO% 0.4 LAB L100.2550 0.0-0.9 % Normal IM GRAN % 0.400 Result Comment: IG% - Immature Granulocytes (promyelocytes, myelocytes and metamyelocytes) > 1% indicates that a LEFT SHIFT is Present. LAB L100.2620 2.0-7.7 X10 3/uL Normal Absolute Neut 6.3 LAB L100.2720 0.83-4.51 X10 3/ul Normal Absolute Lymph 3.02 Performed By: #### L100.0100 #### [facility] [address] [place], [place], [address] COMPREHENSIVE METABOLIC Collected: 12/24/2017 Status: F Source: [facility] 7:45 AM [facility] REPOSITORY TYPE CODE TESTS RESULT OUT OF RANGE REFERENCE UNITS LAB L501.0100 74-106 mg/dL High GLU 175 Result Comment: Fasting Glucose result greater than or equal to 126 mg/dL suggests DIABETES MELLITUS per A.D.A. criteria. Please note revised GLUCOSE reference range effective 2017. LAB L501.1000 7-18 mg/dL Normal BUN 13 LAB L501.1100 0.55-1.02 mg/dL High CREAT,SERUM 1.05 Result Comment: The validity of the calculated GFR AND GFRAA in patients over 70 years has not been determined. Clinical correlation is essential. LAB L501.1110 >60 mL/min Normal EST GFR 63 Result Comment: Non- GFR Calc LAB L501.1115 >60 mL/min Normal EST GFR - AA 76 Result Comment: GFR Calc LAB L501.1255 ml/min Normal Estimated CRCL 58.58 LAB L501.1300 10-20 RATIO Normal BUN/CRE 12.4 LAB L501.1500 6.4-8. g/dL High 2 T PROT 8.5 LAB L501.1800 3.2-5. g/dL Normal 0 ALB 3.9 LAB L501.1950 2.2-4. g/dL High 2 GLOB 4.6 LAB L501.2000 0.9-2. RATIO Low 4 A/G 0.8 LAB L501.2200 8.5-10 mg/dL Normal .1 CA 9.4 LAB L501.4100 15-37 U/L Normal AST 23 LAB L501.4305 45-117 U/L Normal ALK P 86 LAB L501.4405 13-56 U/L Normal ALT 31 LAB L501.4600 0.20-1 mg/dL Normal .00 T BILI 0.20 LAB L501.5300 136-14 mmol/L Normal 5 NA 140 LAB L501.5600 3.5-5. mmol/L Normal 1 K 3.7 LAB L501.5900 98-107 mmol/L Normal CL 103 LAB L501.6100 21.0-3 mmol/L Normal 2.0 CO2 28.0 LAB L501.6200 5-15 Normal GAP 9 Performed By: #### L500.4050 #### [facility] [address] [place], [address] ABDOMEN/PELVIS W IV CONT Observed: 12/24/2017 Status: F Source: PATRIOT ONLY 7:35 AM [facility] REPOSITORY [facility] Imaging Services [address] [facility] [place] [address] Abdomen/Pelvis W IV Cont ONLY MR#: [id number] Acct: [id number] Name: DEBBY BAILON Rep #: [id number] : 1980 F 37 From: Daniel Fitch PCP: Will Dietz MD Status: REG ER Study: Abdomen/Pelvis W IV Cont ONLY Date of Exam: 12/24/17 Exam# [id number] Ordering Dr: Jayson Yost MD STUDY: CT ABDOMEN AND PELVIS WITH CONTRAST REASON FOR EXAM: Female, 37 years old. S/P UMBILICAL HERNIA REPAIR 12/11/17 -- MULTIPLE SCANS SINCE -- STILL HAS PAIN/DRAINAGE--NON-COMPLIANT WITH ATB. RADIATION DOSAGE (If Supplied By Facility): CTDIvol = ( 15.84 ) mGy, DLP = ( 1157.69 ) mGycm TECHNIQUE: Transaxial images were obtained from the dome of the diaphragm to the symphysis pubis without oral contrast. 100CC ml of Isovue 300 contrast was administered. Sagittal and coronal images were reconstructed. Individualized dose optimization techniques were used for this CT. COMPARISON: December 20, 2017 FINDINGS: The visualized lung bases are unremarkable. The visualized portions of the heart are within normal limits. There is decreased attenuation of the liver consistent with steatosis. The gallbladder is contracted. Normal spleen. Normal pancreas. Normal bilateral adrenal glands. There is increased moderate/severe right hydroureteronephrosis. There is no demonstrated ureteral stone. Normal left kidney. Normal visualized stomach. Normal small intestine. There is mild amount of retained stool within the colon There is non-visualization of the appendix. Normal abdominal aorta. Normal inferior vena cava. Normal retroperitoneum. Normal urinary bladder. There is anterior abdominal wall hernia repair with surgical tacks. There is umbilical fat-containing hernia with 3.3 cm surrounding fluid collection. Findings are unchanged since the prior examination Normal osseous structures. CT/Abdomen/Pelvis W IV Cont ONLY IMPRESSION: Stable periumbilical fluid collection. No demonstrated ureteral stones. Mildly increased right hydronephrosis. Mild fecal stasis. Electronically Signed: Daniel Fitch MD at 8:31 EDT Tel , Service support , CC: Will Dietz MD; Jayson Yost MD Paper Rewinder Operator: Signed EMERGENCY DEPARTMENT Observed: 12/20/2017 Status: F Source: PATRIOT SUMMARY 6:08 PM [facility] REPOSITORY [facility] Medical Records Department [address] [place] [address] Emergency Department Summary 12/20/17 1623 MR#: [id number] Acct: [id number] Name: DEBBY BAILON Rep #: [id number] : 1980 37 From: Dre Deal MD PCP: Will Dietz MD Status: REG ER ADDENDUM by Terrence Ramon MD on 12/20/17 at 1808 CAT scan was obtained and it shows some moderate hydronephrosis which is unchanged. There is no significant gas buildup. Patient will be discharged home to follow-up with her surgeon Date Terrence Ramon MD cc: Will Dietz MD * Signed - ER Visit Summary Date of Service: 12/20/17 Chief Complaint: Discharge from laparoscopic incisions History of Present Illness: The patient is a 37 F who was seen twice within the past 24-48 hours. She contacted her surgeon at [facility]. He requested that she come to the emergency room for evaluation. She complains of nausea without vomiting diarrhea. She complains of drainage from the wound. There is a piece of gauze in the umbilicus with green color material. She denies fever, chills night sweats. She denies dysuria, frequency, urgency or hematuria. She denies any cardiac respiratory symptoms. Physical Examination: Vital signs are remarkable for an elevated blood pressure 167 or 78. She is not febrile nor is she tachycardic or tachypneic. Dressings were removed. There is greenish black material noted on gauze from the umbilicus. The umbilicus itself does not abnormal. There is a small area of excoriation. There may be fluctuance. Unable to express any material. Bowel sounds are present normal. There is no guarding or rebound tenderness. There is no CVA tenderness noted. Heart is regular without murmur, gallop or rub. S1 and S2 are normal. Lungs are clear to auscultation with good movement of air bilaterally. Test Results: CBC and BMP are unremarkable. Emergency Department Course and Treatment: CBC and BMP were obtained. Prior records were reviewed. There is a 4 x 1.5 cm fluid collection noted in the subcutaneous tissue. Nurse informed me that there is drainage now and flatus passing from the small wound in the umbilicus. In light of this CT of the abdomen with p.o. and IV contrast was obtained because of concern for a enterocutaneous fistula versus abscess with gas-forming organism. Treatment Plan: In light of most recent history from nursing staff will treat patient with Zosyn, clindamycin and gentamicin. Disposition: To be determined once CT of the abdomen pelvis has been obtained and consultation with her surgeon at [facility]. Her surgeon returned my page. He informed me that she has a Knapp stoma and reason she is passing gas from her umbilicus. Plan is to discharge to home with antibiotics if CT of the abdomen reveals no significant findings. If there is gas and more gas than prior scan in fluid collection previously noted she is to be transferred to [facility] otherwise follow-up as outpatient in 2-3 days Impression: 1. Subcutaneous fluid collection evaluate for abscess 2. Knapp stoma 3. History of spina bifida 4. History of frequent UTIs 5. History of type 2 diabetes This note was generated with EverTune dictation software. It may contain incorrect words, spelling, and punctuation that were not noted in review of the chart prior to signing ED Disposition - Plan for ED Patient: Disposition: Home or Assisted Living Chief Complaint: Wound Check Instructions: ED Wound Infec After Surgery Prescriptions: Clindamycin HCl 300 mg PO 4X/DAY #30 cap Referrals: Will Dietz MD [Primary Care Provider] - Doctor,Your [STAFF PHYSICIAN] - 3-5 Days What to do if you have Problems For any increased pain, shortness of breath, bleeding, nausea or vomiting, chest pain, or any unexpected problems, contact your Primary Care Provider. Call [facility] [employer] ([phone]) or report to the closest Emergency Room. Call 911 if necessary. 12/20/17 5160 <Electronically signed by Dre Deal MD> Date Dre Deal MD Cosigner Signature (If Indicated): Date CC: Will Dietz MD ABDOMEN/PELVIS WITH Observed: 12/20/2017 Status: F Source: [place] CONTRAST 3:27 PM [facility] REPOSITORY [facility] Imaging Services [address] [place] [address] Abdomen/Pelvis WITH Contrast MR#: [id number] Acct: [id number] Name: DEBBY BAILON Rep #: [id number] : 1980 F 37 From: Tulio Hartmann MD PCP: Will Dietz MD Status: REG ER Study: Abdomen/Pelvis WITH Contrast Date of Exam: 12/20/17 Exam# [id number] Ordering Dr: Dre Deal MD STUDY: CT ABDOMEN AND PELVIS WITH CONTRAST REASON FOR EXAM: Female, 37 years old. Umbilical surgery RADIATION DOSAGE (If Supplied By Facility): CTDIvol = ( 14.51 ) mGy, DLP = ( 1065.88 ) mGycm TECHNIQUE: Transaxial images were obtained from the dome of the diaphragm to the symphysis pubis without oral contrast. 100ML ml of Isovue 300 contrast was administered. Sagittal and coronal images were reconstructed. Individualized dose optimization techniques were used for this CT. COMPARISON: December 16, 2017 FINDINGS: The visualized lung bases are unremarkable. The visualized portions of the heart are within normal limits. Normal liver. There are surgical clips in the gallbladder fossa consistent with a prior cholecystectomy. Normal spleen. Normal pancreas. Normal bilateral adrenal glands. There is moderate cortical atrophy of the right kidney, consistent with chronic medical renal disease. Normal left kidney. Normal visualized stomach. Normal small intestine. Increased stool throughout the colon. There is non-visualization of the appendix. Normal abdominal aorta. Normal inferior vena cava. Normal retroperitoneum. Normal urinary bladder. Normal visualized uterus. There is a small umbilical hernia containing fat and fluid. Anterior abdominal wall mesh. Laminectomies L2-[address]/Abdomen/Pelvis WITH Contrast IMPRESSION: Moderate right hydronephrosis and hydroureter unchanged. No radiodense urolithiasis. Anterior abdominal wall mesh and fluid containing periumbilical hernia unchanged.. Electronically Signed: Tulio Hartmann MD at 17:32 EDT , Service support , CC: Will Dietz MD; Dre Deal MD Paper Rewinder Operator: Signed BASIC METABOLIC Collected: 12/20/2017 Status: F Source: [place] PROFILE (BMP) 1:20 PM [facility] REPOSITORY TYPE CODE TESTS RESULT OUT OF RANGE REFERENCE UNITS LAB L501.0100 74-106 mg/dL High GLU 139 Result Comment: Fasting Glucose result greater than or equal to 126 mg/dL suggests DIABETES MELLITUS per A.D.A. criteria. Please note revised GLUCOSE reference range effective 2017. LAB L501.1000 7-18 mg/dL Normal BUN 9 LAB L501.1100 0.55-1.02 mg/dL High CREAT,SERUM 1.05 Result Comment: The validity of the calculated GFR AND GFRAA in patients over 70 years has not been determined. Clinical correlation is essential. LAB L501.1110 >60 mL/min Normal EST GFR 63 Result Comment: Non- GFR Calc LAB L501.1115 >60 mL/min Normal EST GFR - AA 76 Result Comment: GFR Calc LAB L501.1255 ml/min Normal Estimated CRCL 58.58 LAB L501.1300 10-20 RATIO Low BUN/CRE 8.6 LAB L501.2200 8.5-10 mg/dL Normal .1 CA 9.1 LAB L501.5300 136-14 mmol/L Normal 5 NA 140 LAB L501.5600 3.5-5. mmol/L Normal 1 K 3.7 LAB L501.5900 98-107 mmol/L Normal CL 107 LAB L501.6100 21.0-3 mmol/L Normal 2.0 CO2 27.0 LAB L501.6200 5-15 Normal GAP 6 Performed By: #### L500.2500 #### [facility] [address] [place], [address] CBC W/DIFF, AUTOMATED Collected: 12/20/2017 Status: F Source: [place] 1:20 PM [facility] REPOSITORY TYPE CODE TESTS RESULT OUT OF RANGE REFERENCE UNITS LAB L100.1000 4.4-11.0 K/mm3 Normal WBC 9.3 LAB L100.1200 4.2-5.4 M/mm3 Low RBC 4.12 LAB L100.1300 12.0-15.0 g/dl Normal HGB 12.1 LAB L100.1400 37-47 % Normal HCT 37.5 LAB L100.1500 81-99 fL Normal MCV 91.0 LAB L100.1600 27.0-32.0 pg Normal MCH 29.4 LAB L100.1700 32-36 g/gl Normal MCHC 32.3 LAB L100.1810 11.6-14.6 % Normal RDW CV 13.9 LAB L100.1820 35.1-43.9 fl High RDW SD 46.1 LAB L100.1900 150-450 K/mm3 Normal PLT 232 LAB L100.2000 6.2-12.0 fl Normal MPV 10.8 LAB L100.2100 47-70 % Normal NEUT% 64.9 LAB L100.2200 19-41 % Normal LY% 21.4 LAB L100.2300 0-10 % Normal MONO% 9.5 LAB L100.2400 0-5 % Normal EO% 3.6 LAB L100.2500 0-1 % Normal BASO% 0.4 LAB L100.2550 0.0-0.9 % Normal IM GRAN % 0.200 Result Comment: IG% - Immature Granulocytes (promyelocytes, myelocytes and metamyelocytes) > 1% indicates that a LEFT SHIFT is Present. LAB L100.2620 2.0-7.7 X10 3/uL Normal Absolute Neut 6.0 LAB L100.2720 0.83-4.51 X10 3/ul Normal Absolute Lymph 1.98 Performed By: #### L100.0100 #### [facility] [address] [place], [address] 12 LEAD ELECTROCARDIOGRAM Observed: 12/19/2017 Status: F Source: [place] 1:18 PM [facility] REPOSITORY [facility] Cardiovascular Services [address] [place] [address] 12 Lead EKG 12/16/17 0808 MR#: [id number] Acct: [id number] Name: DEBBY BAILON Rep #: [id number] : 1980 37 From: Jayson Alvarez MD Attending Dr: Status: DEP ER Ordering Dr: Taya Wong MD Date: 12/16/17 Location: ED Sex: F C Admitted: Test Reason : SOB Blood Pressure : / mmHG Vent. Rate : 065 BPM Atrial Rate : 065 BPM P-R Int : 138 ms QRS Dur : 080 ms QT Int : 446 ms P-R-T Axes : 012 033 025 degrees QTc Int : 463 ms Poor data quality, interpretation may be adversely affected Normal sinus rhythm Normal ECG Confirmed by STEFANI FITZGERALD, JAYSON ([id number]), editorial specialist LYLA HAY ([id number]) on 12/19/2017 1:18:31 PM Referred By: EMMANUEL Confirmed By:JAYSON ALVAREZ MD 12/19/17 1318 Date Jayson Alvarez MD CC: Will Dietz MD; Taya Wong MD Signed EMERGENCY DEPARTMENT Observed: 12/18/2017 Status: F Source: [place] SUMMARY 1:33 AM [facility] REPOSITORY [facility] Medical Records Department [address] [place] [address] Emergency Department Summary 12/18/17 0003 MR#: [id number] Acct: [id number] Name: DEBBY BAILON Rep #: [id number] : 1980 37 From: Celine Boateng MD PCP: Will Dietz MD Status: DEP ER - ER Visit Summary Date of Service: 12/18/17 Chief Complaint: Abdominal pain History of Present Illness: The patient is a 37 F presents to the emergency department with abdominal pain. The patient had hernia repair done on December 11 at [facility] by [address] Rios. She states that since then, she has had persistent pain. She feels like it has been worsening over the past 3 days. She was actually here yesterday. At this time, she had a CT of her chest which did not show any pulmonary embolus or pneumonia. She had a CT of her abdomen which showed chronic hydronephrosis, and small fluid collection at the lateral aspect of her umbilical incision. Clinically it was thought to be more likely seroma given her recent surgery, but the patient was placed on Augmentin. She states that she is still having persistent pain and nausea. She has had no vomiting. She denies any fevers or chills. She states that she cannot get comfortable. Physical Examination: Vital signs reviewed General: Well-nourished, well-developed Head: Normocephalic, atraumatic Eyes: Pupils equal and reactive, extraocular muscles intact Neck, supple, no lymphadenopathy Heart: Regular rate and rhythm Respiratory: No distress, clear bilaterally Abdomen: Soft, tender at incision sites without rebound or guarding, no new hernia, no erythema, small seroma at the left lateral incision of the umbilicus Back: Nontender Extremities: Nontender, no edema, no cords Skin: Normal color no rash Neuro: Alert and oriented, no focal or lateralizing deficits Test Results: [] Emergency Department Course and Treatment: I did review the patient's CT scan. The area fluid collection does not correspond to her area of maximal tenderness. There is no erythema over the incision site. She is just tender around the incisions and diffusely. I do feel that this is more likely because of postoperative pain. IV was established. Screening labs are obtained. She has a minimal leukocytosis, but labs are otherwise unremarkable. With fluids, analgesics, antiemetics her symptoms have improved. I do not suspect a dangerous process. I do feel that the patient can safely be discharged. I did licensed mental health counselor her that she needs to call her surgeon tomorrow from [place] to discuss plan of care. She will continue her oral antibiotics. I did add new antiemetics and antispasmodics to her regimen. She was counseled on concerning symptoms and reasons to return. The patient be discharged home. Treatment Plan: [] Disposition: Discharge Impression: Postoperative abdominal pain This note was generated with EverTune dictation software. It may contain incorrect words, spelling, and punctuation that were not noted in review of the chart prior to signing ED Disposition - Plan for ED Patient: Disposition: Home or Assisted Living Chief Complaint: Abd Pain Instructions: ED Abdominal Pain Unkn Cause Prescriptions: proMETHazine tablet [Phenergan] 25 mg PO Q6H PRN PRN #10 tab PRN Reason: Nausea Dicyclomine HCl [Bentyl] 20 mg PO TIDAC #20 cap Referrals: Will Dietz MD [Primary Care Provider] - What to do if you have Problems For any increased pain, shortness of breath, bleeding, nausea or vomiting, chest pain, or any unexpected problems, contact your Primary Care Provider. Call [facility] ([phone]) or report to the closest Emergency Room. Call 911 if necessary. 12/18/17 0133 <Electronically signed by Celine Boateng MD> Date Celine Boateng MD Cosigner Signature (If Indicated): Date CC: Will Dietz MD COMPREHENSIVE METABOLIC Collected: 12/17/2017 Status: F Source: [place] KEILY 12:02 AM [facility] REPOSITORY TYPE CODE TESTS RESULT OUT OF RANGE REFERENCE UNITS LAB L501.0100 74-106 mg/dL High GLU 134 Result Comment: Fasting Glucose result greater than or equal to 126 mg/dL suggests DIABETES MELLITUS per A.D.A. criteria. Please note revised GLUCOSE reference range effective 2017. LAB L501.1000 7-18 mg/dL Normal BUN 9 LAB L501.1100 0.55-1.02 mg/dL High CREAT,SERUM 1.19 Result Comment: The validity of the calculated GFR AND GFRAA in patients over 70 years has not been determined. Clinical correlation is essential. LAB L501.1110 >60 mL/min Low EST GFR 55 Result Comment: Non- GFR Calc LAB L501.1115 >60 mL/min Normal EST GFR - AA 66 Result Comment: GFR Calc LAB L501.1255 ml/min Normal Estimated CRCL 51.69 LAB L501.1300 10-20 RATIO Low BUN/CRE 7.6 LAB L501.1500 6.4-8. g/dL Normal 2 T PROT 8.0 LAB L501.1800 3.2-5. g/dL Normal 0 ALB 3.6 LAB L501.1950 2.2-4. g/dL High 2 GLOB 4.4 LAB L501.2000 0.9-2. RATIO Low 4 A/G 0.8 LAB L501.2200 8.5-10 mg/dL Normal .1 CA 9.2 LAB L501.4100 15-37 U/L High AST 73 LAB L501.4305 45-117 U/L Normal ALK P 75 LAB L501.4405 13-56 U/L Normal ALT 38 LAB L501.4600 0.20-1 mg/dL Normal .00 T BILI 0.30 LAB L501.5300 136-14 mmol/L Normal 5 NA 141 LAB L501.5600 3.5-5. mmol/L Normal 1 K 3.5 LAB L501.5900 98-107 mmol/L High CL 108 LAB L501.6100 21.0-3 mmol/L Normal 2.0 CO2 25.0 LAB L501.6200 5-15 Normal GAP 8 Performed By: #### L500.4050 #### [facility] [address] [place], [address] CBC W/DIFF, AUTOMATED Collected: 12/17/2017 Status: F Source: [place] 12:02 AM [facility] REPOSITORY TYPE CODE TESTS RESULT OUT OF RANGE REFERENCE UNITS LAB L100.1000 4.4-11.0 K/mm3 High WBC 13.4 LAB L100.1200 4.2-5.4 M/mm3 Low RBC 4.10 LAB L100.1300 12.0-15.0 g/dl Normal HGB 12.4 LAB L100.1400 37-47 % Normal HCT 37.0 LAB L100.1500 81-99 fL Normal MCV 90.2 LAB L100.1600 27.0-32.0 pg Normal MCH 30.2 LAB L100.1700 32-36 g/gl Normal MCHC 33.5 LAB L100.1810 11.6-14.6 % Normal RDW CV 13.8 LAB L100.1820 35.1-43.9 fl High RDW SD 44.6 LAB L100.1900 150-450 K/mm3 Normal PLT 273 LAB L100.2000 6.2-12.0 fl Normal MPV 11.0 LAB L100.2100 47-70 % Normal NEUT% 59.9 LAB L100.2200 19-41 % Normal LY% 26.1 LAB L100.2300 0-10 % High MONO% 10.6 LAB L100.2400 0-5 % Normal EO% 2.6 LAB L100.2500 0-1 % Normal BASO% 0.3 LAB L100.2550 0.0-0.9 % Normal IM GRAN % 0.500 Result Comment: IG% - Immature Granulocytes (promyelocytes, myelocytes and metamyelocytes) > 1% indicates that a LEFT SHIFT is Present. LAB L100.2620 2.0-7.7 X10 3/uL High Absolute Neut 8.0 LAB L100.2720 0.83-4.51 X10 3/ul Normal Absolute Lymph 3.49 Performed By: #### L100.0100 #### [facility] [address] [facility] [place], [address] EMERGENCY DEPARTMENT Observed: 12/16/2017 Status: F Source: [place] SUMMARY 4:26 PM [facility] REPOSITORY [facility] Medical Records Department [address] [place] [address] Emergency Department Summary 12/16/17 0823 MR#: [id number] Acct: [id number] Name: DEBBY BAILON Rep #: [id number] : 1980 37 From: Taya Wong MD PCP: Will Dietz MD Status: DEP ER - ER Visit Summary Date of Service: 12/16/17 Chief Complaint: Short of breath, dizzy, nausea History of Present Illness: The patient is a 37 F who underwent umbilical hernia repair on December 11 at [facility]. She had a prior stoma at that site. Patient states for the past 3 days that increasing abdominal pain, shortness of breath, nausea, and dizzy. She has been unable to sleep the past 2 nights. She denies fever or chills. She is taking Percocet for pain but states it is not helping her pain. Physical Examination: Vital signs are unremarkable. Patient sitting upright in bed. She appears anxious but she is in no acute distress. Head neck examination reveals dry mucous membranes. Heart is regular rate and rhythm. Lung sounds are clear. Abdomen is soft. There is appropriate postop tenderness. There is surgical sites are clean. Lower external examination reveals 2+ symmetric edema to the lower extremities. Test Results: EKG is sinus at 65 with no sign of acute ischemia. Portal chest x-ray shows underexpanded lungs. CBC and chemistry studies remarkable only for glucose of 167. Urinalysis shows 15 ketones with no sign of infection. CT the chest shows no PE or dissection. A low attenuating thyroid nodule measuring 1.5 cm. Follow-up ultrasound recommended. CT abdomen pelvis shows chronic hydronephrosis. Postop changes status post hernia mesh placement. There is a superficial periumbilical fluid collection measuring 4.1 x 1.5 cm. This could be a seroma versus early abscess. Emergency Department Course and Treatment: Patient was given morphine, Zofran, and IV fluids. Vital signs remained stable throughout her ED stay. Test results were discussed with her. Although she has no fever or white count at this time, she will be covered with a course of Augmentin to ensure this fluid collection does not turn into abscess. She will also be given Zofran for home. She really has Percocet. She is to follow with her primary care physician for follow- up thyroid ultrasound. Treatment Plan: [] Disposition: Discharge Impression: 1. Postop pain 2. Incidental thyroid nodule This note was generated with EverTune dictation software. It may contain incorrect words, spelling, and punctuation that were not noted in review of the chart prior to signing ED Disposition - Plan for ED Patient: Chief Complaint: Shortness of Breath Referrals: Will Dietz MD [Primary Care Provider] - What to do if you have Problems For any increased pain, shortness of breath, bleeding, nausea or vomiting, chest pain, or any unexpected problems, contact your Primary Care Provider. Call [facility] ([phone]) or report to the closest Emergency Room. Call 911 if necessary. 12/16/17 1626 <Electronically signed by Taya Wong MD> Date Taya Wong MD Cosigner Signature (If Indicated): Date CC: Will Dietz MD DISCHARGE INSTRUCTION Observed: 12/16/2017 Status: F Source: [place] 12:32 PM [facility] REPOSITORY [facility] Medical Records Department [address] [facility] [place] [address] Discharge Instruction 12/16/17 1230 MR#: [id number] Acct: [id number] Name: DEBBY BAILON Colette Rep #: [id number] : 1980 37 From: Taya Wong MD PCP: Will Dietz MD Status: REG ER ED Disposition - Plan for ED Patient: Disposition: Home or Assisted Living Chief Complaint: Shortness of Breath Instructions: ED Post Op Pain Prescriptions: Ondansetron [Zofran Odt] 4 mg PO Q8H PRN PRN #10 tablet PRN Reason: Nausea Amox/Clavulanate Tablet [Augmentin Tablet] 875 mg PO Q12H #20 tablet Referrals: Will Dietz MD [Primary Care Provider] - 1-2 Weeks Additional Instructions: Your CT scan showed an incidental thyroid nodule - follow up with your doctor for an ultrasound. Follow-up with your surgeon as scheduled. Return for worsening symptoms or concerns. What to do if you have Problems For any increased pain, shortness of breath, bleeding, nausea or vomiting, chest pain, or any unexpected problems, contact your Primary Care Provider. Call [facility] ([phone]) or report to the closest Emergency Room. Call 911 if necessary. 12/16/17 1232 <Electronically signed by Taya Wong MD> Date Taya Wong MD Cosigner Signature (If Indicated): Date CC: Will Dietz MD URINALYSIS, COMPLETE Collected: 12/16/2017 Status: F Source: [place] 9:25 AM [facility] REPOSITORY Order Comment: Order Date: 12/16/17 Has pt arrived? Y How was Urine Obtained? CLEAN CATCH TYPE CODE TESTS RESULT OUT OF RANGE REFERENCE UNITS LAB L400.3000 Yellow COLOR Normal Yellow LAB L400.3050 Clear Normal CLARITY Clear LAB L400.3200 Normal mg/dl Normal GLUCOSE, UR Normal LAB L400.3300 Negative mg/dL Normal BILIRUBIN URINE Negative LAB L400.3400 Negative mg/dl High 15 KETONE UR LAB L400.3465 1.002-1.030 Normal SP.GR. DIPSTX 1.010 LAB L400.3550 5.0 - 8.0 pH UR Normal 7.0 LAB L400.3600 Negative mg/dl PROT Normal DIPSTX Negative LAB L400.3700 Normal mg/dl Normal UROBILI Normal LAB L400.3750 Negative Normal NITRITE UR Negative LAB L400.3780 Negative /ul Normal OCCULT BLOOD-UR Negative LAB L400.3800 Negative /ul LEUK Normal ESTERASE Negative LAB L400.4050 0-5 /hpf WBC 0 Normal SEEN LAB L400.4100 0-5 /hpf 0 Normal RBC-UA SEEN LAB L400.4150 5-10 /hpf SQUAM Normal EPI 0-5 SEEN LAB L400.4300 None Seen /hpf Normal BACTERIA RARE LAB L400.4350 <or=2+ /hpf 0 Normal MUCUS, URINE SEEN Performed By: #### L400.0001 #### [facility] [address] [place], [address] CBC W/DIFF, AUTOMATED Collected: 12/16/2017 Status: F Source: [place] 8:35 AM [facility] REPOSITORY TYPE CODE TESTS RESULT OUT OF RANGE REFERENCE UNITS LAB L100.1000 4.4-11.0 K/mm3 Normal WBC 10.5 LAB L100.1200 4.2-5.4 M/mm3 Low RBC 4.19 LAB L100.1300 12.0-15.0 g/dl Normal HGB 12.8 LAB L100.1400 37-47 % Normal HCT 37.3 LAB L100.1500 81-99 fL Normal MCV 89.0 LAB L100.1600 27.0-32.0 pg Normal MCH 30.5 LAB L100.1700 32-36 g/gl Normal MCHC 34.3 LAB L100.1810 11.6-14.6 % Normal RDW CV 13.1 LAB L100.1820 35.1-43.9 fl Normal RDW SD 42.3 LAB L100.1900 150-450 K/mm3 Normal PLT 221 LAB L100.2000 6.2-12.0 fl Normal MPV 10.6 LAB L100.2100 47-70 % Normal NEUT% 64.1 LAB L100.2200 19-41 % Normal LY% 21.8 LAB L100.2300 0-10 % High MONO% 10.2 LAB L100.2400 0-5 % Normal EO% 2.7 LAB L100.2500 0-1 % Normal BASO% 0.5 LAB L100.2550 0.0-0.9 % Normal IM GRAN % 0.700 Result Comment: IG% - Immature Granulocytes (promyelocytes, myelocytes and metamyelocytes) > 1% indicates that a LEFT SHIFT is Present. LAB L100.2620 2.0-7.7 X10 3/uL Normal Absolute Neut 6.8 LAB L100.2720 0.83-4.51 X10 3/ul Normal Absolute Lymph 2.30 Performed By: #### L100.0100 #### [facility] [address] [place], [place], [id number] BASIC METABOLIC Collected: 12/16/2017 Status: F Source: [place] PROFILE (BMP) 8:35 AM [facility] REPOSITORY TYPE CODE TESTS RESULT OUT OF RANGE REFERENCE UNITS LAB L501.0100 74-106 mg/dL High GLU 167 Result Comment: Fasting Glucose result greater than or equal to 126 mg/dL suggests DIABETES MELLITUS per A.D.A. criteria. Please note revised GLUCOSE reference range effective 2017. LAB L501.1000 7-18 mg/dL Normal BUN 9 LAB L501.1100 0.55-1.02 mg/dL Normal CREAT,SERUM 1.01 Result Comment: The validity of the calculated GFR AND GFRAA in patients over 70 years has not been determined. Clinical correlation is essential. LAB L501.1110 >60 mL/min Normal EST GFR 66 Result Comment: Non- GFR Calc LAB L501.1115 >60 mL/min Normal EST GFR - AA 80 Result Comment: GFR Calc LAB L501.1255 ml/min Normal Estimated CRCL 60.90 LAB L501.1300 10-20 RATIO Low BUN/CRE 8.9 LAB L501.2200 8.5-10 mg/dL Normal .1 CA 9.0 LAB L501.5300 136-14 mmol/L Normal 5 NA 138 LAB L501.5600 3.5-5. mmol/L Normal 1 K 3.5 LAB L501.5900 98-107 mmol/L Normal CL 106 LAB L501.6100 21.0-3 mmol/L Normal 2.0 CO2 24.0 LAB L501.6200 5-15 Normal GAP 8 Performed By: #### L500.2500 #### [facility] [address] [place] [place], [address] CHEST 1 VIEW Observed: 12/16/2017 Status: F Source: PATRIOT (PORTABLE) 8:18 AM [facility] REPOSITORY [facility] Imaging Services [address] [place] [address] Chest 1 View (Portable) MR#: [id number] Acct: [id number] Name: DEBBY BAILON Rep #: [id number] : 1980 F 37 From: Kirsten Torres MD PCP: Will Dietz MD Status: REG ER Study: Chest 1 View (Portable) Date of Exam: 12/16/17 Exam# [id number] Ordering Dr: Taya Wong MD STUDY: X-RAY CHEST REASON FOR EXAM: Female, 37 years old. Shortness of breath TECHNIQUE: Single AP portable view of the chest. COMPARISON: 08/22/2017 FINDINGS: Lungs are underexpanded. There is no demonstrated pleural abnormality. Normal size heart. Normal mediastinum and cristiano. Normal visualized pulmonary arteries. Normal visualized aortic arch and descending thoracic aorta. Normal visualized thoracic spine. Normal visualized ribs, clavicles, and shoulders. There is no demonstrated abnormality of the visualized soft tissue structures of the upper abdomen. RAD/Chest 1 View (Portable) IMPRESSION: Underexpansion of the lungs are visualized focal infiltrate. Electronically Signed: Kirsten Torres MD at 9:52 EDT Tel , Service support , CC: Will Dietz MD; Taya Wong MD Paper Rewinder Operator: Signed ABDOMEN/PELVIS WITH Observed: 12/16/2017 Status: F Source: [place] CONTRAST 8:18 AM [facility] REPOSITORY [facility] Imaging Services [address] [place] [address] Abdomen/Pelvis WITH Contrast MR#: [id number] Acct: [id number] Name: DEBBY BAILON Rep #: [id number] : 1980 F 37 From: Kirsten Torres MD PCP: Will Dietz MD Status: REG ER Study: Abdomen/Pelvis WITH Contrast Date of Exam: 12/16/17 Exam# [id number] Ordering Dr: Taya Wong MD STUDY: CT ABDOMEN AND PELVIS WITH CONTRAST REASON FOR EXAM: Female, 37 years old. Status post umbilical hernia history of surgery Knapp stoma, back surgery,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 results: Hematocrit 39.6 08/04/2017 Potassium 4.2 10/10/2017 ANES DOS/PREOP NOTE: Vitals: 12/11/17 1305 BP: 128/69 Pulse: 63 Resp: 16 Temp: 36 ?C (96.8 ?F) TempSrc: Temporal Artery SpO2: 100% Weight: 107.5 kg (237 lb) Height: 157.5 cm (5' 2) ACTIVE PROBLEM LIST Cyst of Ovary Anxiety Recurrent Uti Dysthymic Disorder Panic Attacks Neck Pain Cervical Radiculopathy Weakness of Both Upper Extremities Muscle Weakness of Lower Extremity Numbness and Tingling of Left Arm and Leg Lipomeningocele (Hcc) Lumbago Neuropathy (Hcc) Morbid Obesity ([facility]) Chronic Pain Neurogenic Bladder Hydronephrosis, Right History of Kidney Stones Spina Bifida ([facility]) Neurogenic Bowel Primary Insomnia Type 2 Diabetes Mellitus With Proteinuria ([facility]) Pyelonephritis Diabetic Eye Exam ([facility]) Migraine Without Aura and Without Status Migrainosus, Not Intractable Type 2 Diabetes Mellitus With Albuminuria ([facility]) Well Adult Exam Ulcer of Left Foot ([facility]) Paroxysmal Svt (Supraventricular Tachycardia) ([facility]) Dm (Diabetes Mellitus), Secondary, Uncontrolled, W/Renal Complications ([facility]) PAST MEDICAL HISTORY Diagnosis Date - Abnormal sensation of left upper and lower extremity 08/07/2013 - Anxiety - Arthritis started age 19 - Cervical radiculopathy 05/02/2013 - Chronic pain 02/12/2015 - Depressive disorder, not elsewhere classified 11/28/2011 [facility] - DJD (degenerative joint disease), thoracic - Dysthymic disorder Depression (non-psychotic), sees BRIM SHAPER at [facility]. 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 - Lumbago 02/12/2015 - Migraine - Miscarriage - Morbid obesity ([facility]) 02/12/2015 - Muscle weakness of left lower extremity 08/07/2013 - Neck pain 05/02/2013 - Neurogenic bladder 02/12/2015 - Neurogenic bladder - Neurogenic bowel 01/06/2016 - Neuropathy ([facility]) 02/12/2015 post back surgery with secondary infection. Seeing Dr. Gregg - Numbness and tingling of left arm and leg 08/07/2013 - Panic attacks - Recurrent UTI 11/28/2011 - Spina bifida ([facility]) 01/06/2016 - Type 2 diabetes mellitus without complication ([facility]) 02/12/2015 - Urinary tract infection, site not specified Recurrent UTI's - Ventral hernia without obstruction or gangrene - Weakness of left upper extremity 08/07/2013 PAST SURGICAL HISTORY Procedure Laterality Date - 2D ECHO (EXEP) 06/28/2017 EF=65%. nl - DANDC, DIAG AND/OR THERAPEUTIC Dilation AND curettage - PAST SURGICAL HISTORY OF cholecystectomy - PAST SURGICAL HISTORY OF 09/2012 back surgery x2 - PAST SURGICAL HISTORY OF Left AND 02/2014 foot x2 - PAST SURGICAL HISTORY OF 07/2015 Knapp stoma - STRESS TEST 07/18/2017 normal FAMILY HISTORY Problem Relation Age of Onset - Arthritis Mother - Diabetes Mother - Heart Mother - Hypertension Mother - Lipids Mother - Stroke Mother - Thyroid Mother - Cancer Father Skin - Cancer Maternal Grandmother LIVER CANCER - Cancer Maternal Uncle Great Uncle - Cancer Maternal Uncle Great Uncle Social History: Social History Substance Use Topics - Smoking status: Never Smoker - Smokeless tobacco: Never Used - Alcohol use Yes Comment: SOCIALLY No current facility-administered medications on file prior to encounter. Current Outpatient Prescriptions on File Prior to Encounter: glimepiride (AMARYL) 4 mg tablet Take 1 tablet by mouth daily with breakfast. atorvastatin (LIPITOR) 10 mg tablet Take 1 tablet by mouth once daily. polyethylene glycol 3350 (MIRALAX) 17 gram/dose powder Take 17 g by mouth once daily. propranolol (INDERAL) 10 mg tablet Take 1 tablet by mouth twice daily. DULoxetine (CYMBALTA) 30 mg capsule Take 1 capsule by mouth once daily. metFORMIN ER (GLUCOPHAGE XR) 500 mg 24 hr tablet Take 2 tablets by mouth twice daily. lisinopril 2.5 mg tablet Take 1 tablet by mouth once daily. oxybutynin ER (DITROPAN XL) 10 mg 24 hr tablet Take 1 tablet by mouth once daily. gabapentin (NEURONTIN) 300 mg capsule Take 1 capsule by mouth three times daily. zolpidem (AMBIEN) 5 mg tablet Take 1 tablet by mouth at bedtime as needed for Sedation for up to 60 days. [facility] COMPOUNDED PRESCRIPTION Promogran, use as directed, ulcer of left 1st metatarsal, measurement: [id number], Dx: E11.621, L97.522 (Patient not taking: Reported on 10/05/2017 ) hydrOXYzine pamoate (VISTARIL) 25 mg capsule Take 1 capsule by mouth three times daily as needed. [facility] Current Facility-Administered Medications: lidocaine 10 mg/mL (1 %) 1-2 mg injection (XYLOCAINE) 0.1- 0.2 mL INTRADERMAL PRN Anne Ali lactated ringers infusion 5-30 mL/hr INTRAVENOUS CONTINUOUS Noaman Ali ceFAZolin 3 g in D5W 100 mL (ANCEF) 3 g INTRAVENOUS Pre-Op Once Noaman Ali Allergies: ALLERGIES Allergen Reactions - Mushroom Anaphylaxis - Peanuts Anaphylaxis - Mri Contrast [Gadol* GI Upset DOS EXAM: Adequate NPO status: Yes Anesthetic risks, benefits, alternatives, personnel and consent discussed: Yes Patient agrees to proceed: Yes Previous Anesthesia: No history of adverse event. Airway Assessment: MP 1; Neck ROM: Full ROM without neurologic symptoms; Airway Evaluation: No significant abnormalities Symptoms of Sleep Apnea: BMI > 35 Dentition: Teeth intact Additional Physical Exam: Lungs: Patient health status unchanged since recent history and physical. See history and physical for exam findings. Cardiac: Patient health status unchanged since recent history and physical. See history and physical for exam findings. Additional Pertinent Findings: N/A Blood Products: Not anticipated for this procedure. Anesthetic Plan: General, Standard ASA Monitors Pain Management Plan: Parenteral or Oral ASA Class: 3 Other Medical Problems: None Chronic Beta Suki medication administered within 24 hours: Yes I have interviewed and examined the patient. I have reviewed the medical record and/or the pre-anesthesia evaluation, pertinent labs, and test results. Significant changes in the patient's condition since the History and Physical, not otherwise documented in primary service progress notes: No This contains updated information obtained within 48 hours of Surgery/Procedure. SIGNATURE: Celine Alfred MD PATIENT NAME: Debby Bailon DATE: December 11, 2017 TIME: 1:13 PM CSN: [id number] CNPN Observed: 12/05/2017 Status: COMPLETED Source: [place] 12:[address] [facility] DEBBY BAILON ([id number]) 1980 F Date Time Provider Department 12/05/17 [facility] During your visit today, we recorded the following information about you: Yin Uribe LPN 12/05/2017 10:06 AM Signed Pt calls for the following: Insurance will not cover Freestyle test strips. This nurse called [facility] and was advised insurance will cover [employer] or [employer]. Advised pt of same. Pt is ok with changing. Pt reports she is missing the catheter tube to stoma. Pt is asking for a rx for tube to be sent to [facility]. [facility] advised they carry them. Pt does not see a dr for stoma so is asking pcp. Pt has surgery Monday and will need catheter tube. Pt [facility] for master rigger pet as advised by pcp. She was told that her pcp has to do that. Now pt is confused. Yin Uribe PLAN MANAGER Fifi Kay PLAN MANAGER 12/05/2017 3:12 PM Signed Patient calling to check status of request. Patient said she tests twice daily for her meter. Will Dietz MD 12/05/2017 3:52 PM Signed Please fax scripts to [facility]. please call the [facility] and discuss with them that the patient called requesting a letter for a master rigger pet. patient sees them for her Anxiety and panic attacks and if they feel this is a necessity the letter will need to come from the treating provider. The following approved medication requests have been transmitted electronically. Signed Prescriptions Disp Refills Blood-Glucose Meter (ACCU-CHEK ANISH) misc 1 Each 0 Sig: Dispense 1 meter kit. Dx: Other DM Code E13.29 Authorizing Provider: WILL DIETZ Lancets (ACCU-CHEK FASTCLIX) lancets 100 Each 11 Sig: Test blood sugar 2 times/day. Dx: Other DM Code E13.29 Insulin Use: No Authorizing Provider: WILL DIETZ blood sugar diagnostic (ACCU-CHEK SMARTVIEW TEST STRIP) test strip 50 Strip 11 Sig: Test blood sugar(s) 2 times daily. Dx: Other DM Code E13.29 Insulin: No Authorizing Provider: WILL DIETZ COMPOUNDED PRESCRIPTION 1 Device 0 Sig: Stoma catheter tube.DX: Qo5.4 and K59.2 Authorizing Provider: WILL DIETZ MD Elizabeth Merillat Ma 12/05/2017 4:02 PM Signed Faxed rx to [facility] Left detailed message on Dr[facility] Jaxon Nguyenmafernandez at [facility] Patient advised pcp does not give letters for this and needs to come from counselor who manages anziety/panic attacks. Patient is aware that message left on Dr. Jaxon medina requesting if staff can contact patient if letter is fit medical necessity Chasidy Cade Ma Fifi Peñanisa WATERS 12/05/2017 5:02 PM Signed [facility] [place] pharmacy calling said do not carry stoma catheter and not sure where patient will be able to get it from. Phoned patient and let her know pharmacy does not carry stoma catheter and she said she will call [facility] in the morning. Allergies As of Date: 12/05/2017 Noted Allergy Reaction MUSHROOM 06/10/2016 10 - Anaphylaxis PEANUTS 06/10/2016 10 - Anaphylaxis MRI CONTRAST (GADOLINIUM-CONTAINI*01/03/2017 8 - GI Upset Date Reviewed: 12/01/2017 Reviewed by: Stacey Rao - Fully Assessed Reason for Visit: rx problem [Other] Primary Visit Diagnosis: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) [E11.29, R80.9] Other Visit Diagnoses:DM (diabetes mellitus), secondary, uncontrolled, w/renal complications (HCC) [E13.29, E13.65] Spina bifida with hydrocephalus, unspecified spinal region (HCC) [Q05.4] Neurogenic bowel [K59.2] Order(s):Blood-Glucose Meter (ACCU-CHEK ANISH) miscDispense 1 meter kit. Dx: Other DM Code E13.29Disp: 1 EachRfl: 0 Lancets (ACCU-CHEK FASTCLIX) lancetsTest blood sugar 2 times/day. Dx: Other DM Code E13.29 Insulin Use: NoDisp: 100 EachRfl: 11 blood sugar diagnostic (ACCU-CHEK SMARTVIEW TEST STRIP) test stripTest blood sugar(s) 2 times daily. Dx: Other DM Code E13.29 Insulin: NoDisp: 50 StripRfl: 11 COMPOUNDED PRESCRIPTIONStoma catheter tube. DX: Qo5.4 and K59.2Disp: 1 DeviceRfl: 0 Prescriptions as of 12/05/2017 Sig: BLOOD-GLUCOSE METER Dispense 1 meter kit. Dx: Ot* LANCETS Test blood sugar 2 times/day* BLOOD SUGAR DIAGNOSTIC STRIPS Test blood sugar(s) 2 times d* COMPOUNDED PRESCRIPTION Stoma catheter tube. DX: Qo5* GLIMEPIRIDE 4 MG TABLET Take 1 tablet by mouth daily * ATORVASTATIN 10 MG TABLET Take 1 tablet by mouth once d* POLYETHYLENE GLYCOL 3350 17 G* Take 17 g by mouth once daily. PROPRANOLOL 10 MG TABLET Take 1 tablet by mouth twice * DULOXETINE 30 MG CAPSULE,SHERRY* Take 1 capsule by mouth once * METFORMIN ER 500 MG TABLET,EX* Take 2 tablets by mouth twice* ZOLPIDEM 5 MG TABLET Take 1 tablet by mouth at bed* COMPOUNDED PRESCRIPTION Promogran, use as directed, u* Patient not taking: Reported on 10/05/2017 LISINOPRIL 2.5 MG TABLET Take 1 tablet by mouth once d* OXYBUTYNIN CHLORIDE ER 10 MG * Take 1 tablet by mouth once d* HYDROXYZINE PAMOATE 25 MG CAP* Take 1 capsule by mouth three* GABAPENTIN 300 MG CAPSULE Take 1 capsule by mouth three* Problem List As Of Date 12/05/2017 Noted Resolved Threatened , antepartum [O20.0] INVALID FOR*04/07/2011 Supervision of normal first [Z34.00] INVALID FOR*04/07/2011 Cyst of ovary [N83.209] INVALID FOR* Priority: C Depressive disorder, not elsewhere classified [*INVALID FOR*01/06/2016 Priority: A More... Anxiety [F41.9] INVALID FOR* Priority: A More... Recurrent UTI [N39.0] INVALID FOR* Priority: C Dysthymic disorder [F34.1] Priority: A More... Panic attacks [F41.0] Priority: A Neck pain [M54.2] INVALID FOR* Priority: M Cervical radiculopathy [M54.12] INVALID FOR* Priority: M Weakness of both upper extremities [R29.898] INVALID FOR* Priority: M More... Muscle weakness of lower extremity [M62.81] INVALID FOR* Priority: M More... 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 Morbid obesity ([facility]) [E66.01] INVALID FOR* Priority: B Chronic pain [G89.29] INVALID FOR* Priority: M Neurogenic bladder [N31.9] INVALID FOR* Priority: B Hydronephrosis, right [N13.30] INVALID FOR* Priority: C History of kidney stones [Z87.442] INVALID FOR* Priority: C Spina bifida ([facility]) [Q05.9] INVALID FOR* Priority: B Neurogenic bowel [K59.2] INVALID FOR* Priority: B Primary insomnia [F51.01] INVALID FOR* Priority: A Type 2 diabetes mellitus with proteinuria ([facility])*INVALID FOR* Priority: A Pyelonephritis [N12] INVALID FOR* Diabetic eye exam ([facility]) [Z01.00, E11.9] INVALID FOR* Priority: A More... Migraine without aura and without status migrai*INVALID FOR* Priority: A Type 2 diabetes mellitus with albuminuria ([facility])*INVALID FOR* Priority: A Well adult exam [Z00.00] INVALID FOR* Priority: E More... Ulcer of left foot ([facility]) [L97.529] INVALID FOR* Priority: M Paroxysmal SVT (supraventricular tachycardia) (*INVALID FOR* Priority: A More... DM (diabetes mellitus), secondary, uncontrolled*INVALID FOR* Prescriptions ordered this encounter Disp Refills Start End BLOOD-GLUCOSE METER 1 Ea* 0 12/05/2017 Class: Print RX Sig: Dispense 1 meter kit. Dx: Other DM Code E13.29 LANCETS 100 * 12/05/2017 Sig: Test blood sugar 2 times/day. Dx: Other DM Code E13.29 Insulin Use: No BLOOD SUGAR DIAGNOSTIC STRIPS 50 S* 11 12/05/2017 Sig: Test blood sugar(s) 2 times daily. Dx: Other DM Code E13.29 Insulin: No COMPOUNDED PRESCRIPTION 1 De* 0 12/05/2017 Class: Print RX Sig: Stoma catheter tube. DX: Qo5.4 and K59.2 Medications Discontinued During This Encounter Blood-Glucose Meter (FREESTYLE LITE * 1 Ea* 0 02/24/2015 12/05/2017 Class: In Office Sig: Freestyle LITE Meter Kit - Disc: Reason for discontinue is not on file. lancets (FREESTYLE LANCETS) 28 gauge* 100 * 11 06/23/2017 12/05/2017 Sig: Test blood sugar(s) 1-2 times daily. Dx: 250.0. Insulin: No Disc: Reason for discontinue is not on file. blood sugar diagnostic (FREESTYLE LI* 50 S* 11 10/25/2017 12/05/2017 Sig: Test blood sugar(s) 1-2 times daily. Dx: 250.0. Insulin: No Disc: Not on Formulary Encounter Status:Closed by CHASIDY CADE MA on 12/05/17 HISTORY PHYSICAL Observed: 12/01/2017 Status: COMPLETED Source: [place] 11:03 AM CLINIC OTHER CAMPUS REPOSITORY HNO ID: [id number] Author: Stacey Rao Service: (none) Author Type: Nurse Practitioner Type: HANDP Filed: 12/01/2017 11:21 AM Note Text: HISTORY AND PHYSICAL EXAMINATION SERVICE DATE: 12/01/2017 SERVICE TIME: 1120 PRIMARY CARE PHYSICIAN: Will Dietz MD REASON FOR VISIT: Debby Bailon is a 37 year old female who is scheduled for LAPAROSCOPIC VENTRAL HERNIA REPAIR WITH MESH at the request of Dr. Anne Christensen for routine HANDP. The patient has the following: ACTIVE PROBLEM LIST Cyst of Ovary Anxiety Recurrent Uti Dysthymic Disorder Panic Attacks Neck Pain Cervical Radiculopathy Weakness of Both Upper Extremities Muscle Weakness of Lower Extremity Numbness and Tingling of Left Arm and Leg Lipomeningocele (Hcc) Lumbago Neuropathy (Hcc) Morbid Obesity (Hcc) Chronic Pain Neurogenic Bladder Hydronephrosis, Right History of Kidney Stones Spina Bifida (Hcc) Neurogenic Bowel Primary Insomnia Type 2 Diabetes Mellitus With Proteinuria (Hcc) Pyelonephritis Diabetic Eye Exam (Hcc) Migraine Without Aura and Without Status Migrainosus, Not Intractable Type 2 Diabetes Mellitus With Albuminuria (Hcc) Well Adult Exam Ulcer of Left Foot (Hcc) Paroxysmal Svt (Supraventricular Tachycardia) (Hcc) Subjective CHIEF COMPLAINT: Ventral hernia without obstruction or gangrene HPI: Ms. Bailon is a 37 year old female present in presurgical testing. She states she found the hernia in september 2017. States she has a stoma in her stomach and she had an xray and cat scan and found it. States the xray was completed in [place] Start referred her to [facility] because the type of the stoma she has. She has abdomen pain. States she can barely eat without being in pain. + nausea. Denies vomitting. Surgery was recommended and she agrees to proceed as planned. She is scheduled for LAPAROSCOPIC VENTRAL HERNIA REPAIR WITH MESH on 12/01/[address] Christensen PAST MEDICAL HISTORY Diagnosis Date - Abnormal sensation of left upper and lower extremity 08/07/2013 - Anxiety - Arthritis started age 19 - Cervical radiculopathy 05/02/2013 - Chronic pain 02/12/2015 - Depressive disorder, not elsewhere classified 11/28/2011 [facility] - DJD (degenerative joint disease), thoracic - Dysthymic disorder Depression (non-psychotic), sees BRIM SHAPER at [facility]. 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 Seeing Dr. Gregg - Numbness and tingling of left arm and leg 08/07/2013 - Panic attacks - Recurrent UTI 11/28/2011 - Spina bifida (HCC) 01/06/2016 - Type 2 diabetes mellitus without complication ([facility]) 02/12/2015 - Urinary tract infection, site not specified Recurrent UTI's - Ventral hernia without obstruction or gangrene - Weakness of left upper extremity 08/07/2013 PAST SURGICAL HISTORY Procedure Laterality Date - 2D ECHO (EXEP) 06/28/2017 EF=65%. nl - DANDC, DIAG AND/OR THERAPEUTIC Dilation AND curettage - PAST SURGICAL HISTORY OF cholecystectomy - PAST SURGICAL HISTORY OF 09/2012 back surgery x2 - PAST SURGICAL HISTORY OF Left AND 02/2014 foot x2 - PAST SURGICAL HISTORY OF 07/2015 [place] stoma - STRESS TEST 07/18/2017 normal FAMILY HISTORY Problem Relation Age of Onset - Arthritis Mother - Diabetes Mother - Heart Mother - Hypertension Mother - Lipids Mother - Stroke Mother - Thyroid Mother - Cancer Father Skin - Cancer Maternal Grandmother LIVER CANCER - Cancer Maternal Uncle Great Uncle - Cancer Maternal Uncle Great Uncle SOCIAL HISTORY: Social History Marital status: Spouse name: MEHDI Years of education: 12 Number of children: 0 Occupational History 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 Dx: 250.0. Insulin: No glimepiride (AMARYL) 4 mg tablet Take 1 tablet by mouth daily with breakfast. atorvastatin (LIPITOR) 10 mg tablet Take 1 tablet by mouth once daily. polyethylene glycol 3350 (MIRALAX) 17 gram/dose powder Take 17 g by mouth once daily. Taking propranolol (INDERAL) 10 mg tablet Take 1 tablet by mouth twice daily. Taking lancets (FREESTYLE LANCETS) 28 gauge misc Test blood sugar(s) 1-2 times daily. Dx: 250.0. Insulin: No Taking DULoxetine (CYMBALTA) 30 mg capsule Take 1 capsule by mouth once daily. Taking metFORMIN ER (GLUCOPHAGE XR) 500 mg 24 hr tablet Take 2 tablets by mouth twice daily. Taking zolpidem (AMBIEN) 5 mg tablet Take 1 tablet by mouth at bedtime as needed for Sedation for up to 60 days. [facility] COMPOUNDED PRESCRIPTION Promogran, use as directed, ulcer of left 1st metatarsal, measurement: [id number], Dx: E11.621, L97.522 Patient not taking: Reported on 10/05/2017 Not Taking lisinopril 2.5 mg tablet Take 1 tablet by mouth once daily. Taking oxybutynin ER (DITROPAN XL) 10 mg 24 hr tablet Take 1 tablet by mouth once daily. Taking hydrOXYzine pamoate (VISTARIL) 25 mg capsule Take 1 capsule by mouth three times daily as needed. [facility] Taking Blood-Glucose Meter (FREESTYLE LITE METER) monitoring kit Freestyle LITE Meter Kit - Taking gabapentin (NEURONTIN) 300 mg capsule Take 1 capsule by mouth three times daily. Taking No medication comments found. ALLERGIES Allergen Reactions - Mushroom Anaphylaxis - Peanuts Anaphylaxis - Mri Contrast [Gadol* GI Upset REVIEW OF SYSTEMS: PAIN ASSESSMENT: General: Denies fever, chills, and unexpected weight change. Neuro: Denies dizziness. + headaches. Respiratory: Denies SOB or cough Cardiovascular: Denies CP. +palpitations. GI: + abd pain and Nausea. Denies V/D. : Denies dysuria. CORRECTIONAL PROBATION OFFICER: Denies abnormal vaginal bleeding. Endocrine: + diabetes. denies thyroid disease Hematology: Denies history of bleeding or clotting disorder. Psych: + anxiety/depression. Musculoskeletal: + back and leg pain Skin: Denies open sores and rashes. Objective PHYSICAL EXAM: VITALS: There were no vitals taken for this visit. General: NAD. Cooperative. Skin: Skin is warm, no rashes, and no open sores. HEENT: Normocephalic. Cardiovascular: Normal S1 AND S2. No murmur. Lungs: CTA. No respiratory distress. Abdomen: Soft. Extremities: No edema. Neurological: Alert and oriented to person, place, and time. Pulses: radial pulses +2 Diagnostic tests reviewed for today's visit: Lab Value Units Date High Low HB 12.8 g/dL 08/04/2017 15.5 11.5 HCT 39.6 % 08/04/2017 46.0 36.0 WBC 11.40 k/uL 08/04/2017 11.00 3.70 PLT 252 k/uL 08/04/2017 400 150 NA 138 mmol/L 10/10/2017 144 136 K 4.2 mmol/L 10/10/2017 5.1 3.7 GLUC 178 mg/dL 10/10/2017 99 74 BUN 9 mg/dL 10/10/2017 21 7 CREAT 0.73 mg/dL 10/10/2017 0.96 0.58 ALT 55 U/L 10/10/2017 38 7 AST 44 U/L 10/10/2017 35 13 TBILI 0.3 mg/dL 10/10/2017 1.3 0.2 TSH 0.832 uU/mL 07/27/2017 5.500 0.400 Hemoglobin A1C (%) Date Value 10/10/2017 8.9 06/02/2017 8.1 01/27/2017 7.2 10/17/2016 7.2 02/17/2016 6.8 9} Assessment/Plan Diabetes - last aic 8.9 Morbid Obesity METS: Climb a flight of stairs or walk up a hill (5.50 METs) ANESTHESIA FINDINGS: Intubation History: No history of difficult intubation Significant Anesthesia Considerations: None PLAN Planned Procedure: * No surgery found * CONSULTS: Patient does not require consults for optimization at this time. The Following Tests/Procedures Have Been Initiated: No orders of the defined types were placed in this encounter. Planned Anesthetic: General Instructions Given to Patient: Patient given verbal and written preop instructions and voices comprehension and compliance. SIGNATURE: Stacey Rao APRN.CNP PATIENT NAME: Debby Bailon DATE: December 01, 2017 TIME: 11:03 AM PAGER/CONTACT #: [email or web address] Observed: 11/09/2017 Status: COMPLETED Source: [place] 12:00 AM CLINIC OTHER CAMPUS REPOSITORY Patient:Debby Bailon MRN: <[id number]> Height:5' 2(1.575 m) Weight:237 lb (107.502 kg) Outpatient Medications as of 12/11/17: zolpidem (AMBIEN) 10 mg tab Blood-Glucose Meter (ACCU-CHEK ANISH) misc Lancets (ACCU-CHEK FASTCLIX) lancets blood sugar diagnostic (ACCU-CHEK SMARTVIEW TEST STRIP) test strip COMPOUNDED PRESCRIPTION glimepiride (AMARYL) 4 mg tablet atorvastatin (LIPITOR) 10 mg tablet polyethylene glycol 3350 (MIRALAX) 17 gram/dose powder propranolol (INDERAL) 10 mg tablet DULoxetine (CYMBALTA) 30 mg capsule metFORMIN ER (GLUCOPHAGE XR) 500 mg 24 hr tablet zolpidem (AMBIEN) 5 mg tablet COMPOUNDED PRESCRIPTION lisinopril 2.5 mg tablet oxybutynin ER (DITROPAN XL) 10 mg 24 hr tablet hydrOXYzine pamoate (VISTARIL) 25 mg capsule gabapentin (NEURONTIN) 300 mg capsule Admission/Clinic Administered Medications as of 12/11/17: lidocaine 10 mg/mL (1 %) 1-2 mg injection (XYLOCAINE) lactated ringers infusion ceFAZolin 3 g in D5W 100 mL (ANCEF) lactated ringers infusion meperidine (PF) 12.5 mg injection (DEMEROL) fentaNYL 50 mcg/mL 50 mcg injection (SUBLIMAZE) HYDROmorphone 0.5 mg injection (DILAUDID) oxyCODONE IR 5 mg tab(s) (ROXICODONE) ondansetron (PF) 4 mg injection (ZOFRAN) prochlorperazine 10 mg injection (COMPAZINE) Problem List: Cyst of ovary [N83.209] Anxiety [F41.9] Recurrent UTI [N39.0] Dysthymic disorder [F34.1] Panic attacks [F41.0] Neck pain [M54.2] Cervical radiculopathy [M54.12] Weakness of both upper extremities [R29.898] Muscle weakness of lower extremity [M62.81] Numbness and tingling of left arm and leg [R20.0, R20.2] Lipomeningocele (HCC) [Q05.9] Lumbago [M54.5] Neuropathy (HCC) [G62.9] Morbid obesity (HCC) [E66.01] Chronic pain [G89.29] Neurogenic bladder [N31.9] Hydronephrosis, right [N13.30] History of kidney stones [Z87.442] Spina bifida (HCC) [Q05.9] Neurogenic bowel [K59.2] Primary insomnia [F51.01] Type 2 diabetes mellitus with proteinuria ([facility]) [E11.29, R80.9] Pyelonephritis [N12] Diabetic eye exam ([facility]) [Z01.00, E11.9] Migraine without aura and without status migrainosus, not intractable [G43.009] Type 2 diabetes mellitus with albuminuria ([facility]) [E11.29, R80.9] Well adult exam [Z00.00] Ulcer of left foot ([facility]) [L97.529] Paroxysmal SVT (supraventricular tachycardia) ([facility]) [I47.1] DM (diabetes mellitus), secondary, uncontrolled, w/renal complications ([facility]) [E13.29, E13.65] Allergies: Mushroom Peanuts Mri Contrast [Gadolinium-Containing Contrast Media] Date Verified: 12/11/17 Lab Values No results within the last 30 days for the following basenames: K,HCT Progress Notes ([facility]): Yin Uribe LPN 12/05/2017 10:06 AM Signed Pt calls for the following: Insurance will not cover Freestyle test strips. This nurse called [facility] and was advised insurance will cover Accuchek or True Metrics. Advised pt of same. Pt is ok with changing. Pt reports she is missing the catheter tube to stoma. Pt is asking for a rx for tube to be sent to [facility]. [facility] advised they carry them. Pt does not see a dr for stoma so is asking pcp. Pt has surgery Monday and will need catheter tube. Pt [facility] for master rigger pet as advised by pcp. She was told that her pcp has to do that. Now pt is confused. Yin Uribe LPN Fifi Shorepau[facility] 12/05/2017 3:12 PM Signed Patient calling to check status of request. Patient said she tests twice daily for her meter. Will Dietz MD 12/05/2017 3:52 PM Signed Please fax scripts to [facility]. please call the counseling [facility] and discuss with them that the patient called requesting a letter for a master rigger pet. patient sees them for her Anxiety and panic attacks and if they feel this is a necessity the letter will need to come from the treating provider. The following approved medication requests have been transmitted electronically. Signed Prescriptions Disp Refills Blood-Glucose Meter (ACCU-CHEK ANISH) misc 1 Each 0 Sig: Dispense 1 meter kit. Dx: Other DM Code E13.29 Authorizing Provider: WILL DIETZ Lancets (ACCU-CHEK FASTCLIX) lancets 100 Each 11 Sig: Test blood sugar 2 times/day. Dx: Other DM Code E13.29 Insulin Use: No Authorizing Provider: WILL DIETZ blood sugar diagnostic (ACCU-CHEK SMARTVIEW TEST STRIP) test strip 50 Strip 11 Sig: Test blood sugar(s) 2 times daily. Dx: Other DM Code E13.29 Insulin: No Authorizing Provider: WILL DIETZ COMPOUNDED PRESCRIPTION 1 Device 0 Sig: Stoma catheter tube.DX: Qo5.4 and K59.2 Authorizing Provider: WILL DIETZ MD Elizabeth Merillat Ma 12/05/2017 4:02 PM Signed [facility]axed rx to [facility] Left detailed message on Dr. Coates Voicemail at counseling [facility] Patient advised pcp does not give letters for this and needs to come from counselor who manages anziety/panic attacks. Patient is aware that message left on Dr. Coates voicemail requesting if staff can contact patient if letter is fit medical necessity Chasidy Cade Ma Ffii Shorepaulette [facility]ERS 12/05/2017 5:02 PM Signed [facility] [place] pharmacy calling said do not carry stoma catheter and not sure where patient will be able to get it from. Phoned patient and let her know pharmacy does not carry stoma catheter and she said she will call [facility] in the morning. EMERGENCY DEPARTMENT Observed: 11/08/2017 Status: F Source: [facility] SUMMARY 7:27 AM [facility] REPOSITORY [facility] Medical Records Department [address] [place] [address] Emergency Department Summary 11/08/17 0129 MR#: [id number] Acct: [id number] Name: DEBBY BAILON Rep #: [id number] : 1980 36 From: Celine Caputo MD PCP: Will Dietz MD Status: DEP ER - ER Visit Summary Date of Service: 11/08/17 Chief Complaint: Abdominal pain History of Present Illness: The patient is a 36 F presenting for evaluation secondary to abdominal pain. Patient has a complicated history of multiple abdominal surgeries with an abdominal hernia. Patient states that she was at the doctor's today having a discussion about staging of surgery for her abdominal hernia. Patient reports that about 30 minutes prior to arrival to the emergency department she had a sudden onset of abdominal pain. She states that it felt like a bomb went off in her abdomen. She states that the sharp continuous epigastric pain associated with nausea no vomiting no diarrhea no fevers. Patient denies any urinary symptoms. Review of systems otherwise negative. Physical Examination: Vital signs within normal limits. Obese female visibly uncomfortable otherwise not physiologic distress. Moist mucous migraines. No JVD. Heart regular rate and rhythm lung sounds clear. Abdomen tender diffusely with some guarding and rigidity in the upper abdomen no rebound no distention noted. I was unable to identify any sort of palpable masses. Normal distal pulses. Remainder of physical otherwise unremarkable. Test Results: CT abdomen and pelvis shows chronically dilated right-sided collecting system as well as a chronic ventral hernia with no evidence of strangulation or incarceration no evidence of bowel obstruction. CBC and chemistry unremarkable. Emergency Department Course and Treatment: Patient presented for evaluation secondary to abdominal pain. She did have some concerning abdominal findings and a history of abdominal hernia so IV was obtained, morphine and Zofran were given, and laboratory and CT workup was obtained. These were found to be unremarkable as noted above. One back and reevaluated the patient she is still complaining of some abdominal pain, but she has normal vital signs and she has had multiple similar presentations in the past. This point I do not believe that the patient requires inpatient management or surgical consultation. Patient was given a dose of oxycodone in the emergency department. She does not have any evidence of strangulation, volvulus, or any dangerous surgical pathology at this point. Patient will follow up with her surgeon at [facility]. Disposition: Discharge Impression: 1. Acute on chronic abdominal pain This note was generated with EverTune dictation software. It may contain incorrect words, spelling, and punctuation that were not noted in review of the chart prior to signing ED Disposition - Plan for ED Patient: Disposition: Home or Assisted Living Chief Complaint: Abd Pain Diagnosis: Abdominal pain Instructions: ED Abdominal Pain Unkn Cause Additional Instructions: Followup with your surgeon at [facility] as scheduled. What to do if you have Problems For any increased pain, shortness of breath, bleeding, nausea or vomiting, chest pain, or any unexpected problems, contact your Primary Care Provider. Call [facility] ([phone]) or report to the closest Emergency Room. Call 911 if necessary. 11/08/17 0727 <Electronically signed by Celine Caputo MD> Date Celine Caputo MD Cosigner Signature (If Indicated): Date CC: Will Dietz MD CBC W/DIFF, AUTOMATED Collected: 11/07/2017 Status: F Source: [place] 11:25 PM [facility] REPOSITORY TYPE CODE TESTS RESULT OUT OF RANGE REFERENCE UNITS LAB L100.1000 4.4-11.0 K/mm3 High WBC 12.1 LAB L100.1200 4.2-5.4 M/mm3 Normal RBC 4.52 LAB L100.1300 12.0-15.0 g/dl Normal HGB 13.8 LAB L100.1400 37-47 % Normal HCT 40.4 LAB L100.1500 81-99 fL Normal MCV 89.4 LAB L100.1600 27.0-32.0 pg Normal MCH 30.5 LAB L100.1700 32-36 g/gl Normal MCHC 34.2 LAB L100.1810 11.6-14.6 % Normal RDW CV 13.6 LAB L100.1820 35.1-43.9 fl Normal RDW SD 43.8 LAB L100.1900 150-450 K/mm3 Normal PLT 231 LAB L100.2000 6.2-12.0 fl Normal MPV 10.8 LAB L100.2100 47-70 % Normal NEUT% 64.4 LAB L100.2200 19-41 % Normal LY% 23.7 LAB L100.2300 0-10 % Normal MONO% 9.2 LAB L100.2400 0-5 % Normal EO% 1.4 LAB L100.2500 0-1 % Normal BASO% 0.6 LAB L100.2550 0.0-0.9 % Normal IM GRAN % 0.700 Result Comment: IG% - Immature Granulocytes (promyelocytes, myelocytes and metamyelocytes) > 1% indicates that a LEFT SHIFT is Present. LAB L100.2620 2.0-7.7 X10 3/uL High Absolute Neut 7.8 LAB L100.2720 0.83-4.51 X10 3/ul Normal Absolute Lymph 2.86 Performed By: #### L100.0100 #### [facility] [address] [place], [place], [address] COMPREHENSIVE METABOLIC Collected: 11/07/2017 Status: F Source: [facility] 11:25 PM [facility] REPOSITORY TYPE CODE TESTS RESULT OUT OF RANGE REFERENCE UNITS LAB L501.0100 74-106 mg/dL High GLU 214 Result Comment: Glucose result greater than or equal to 200 mg/dL suggests DIABETES MELLITUS per A.D.A. criteria. Please note revised GLUCOSE reference range effective 2017. LAB L501.1000 7-18 mg/dL Normal BUN 11 LAB L501.1100 0.55-1.02 mg/dL High CREAT,SERUM 1.03 Result Comment: The validity of the calculated GFR AND GFRAA in patients over 70 years has not been determined. Clinical correlation is essential. LAB L501.1110 >60 mL/min Normal EST GFR 64 Result Comment: Non- GFR Calc LAB L501.1115 >60 mL/min Normal EST GFR - AA 78 Result Comment: GFR Calc LAB L501.1300 10-20 RATIO Normal BUN/CRE 10.7 LAB L501.1500 6.4-8.2 g/dL T Normal PROT 8.0 LAB L501.1800 3.2-5.0 g/dL Normal ALB 3.5 LAB L501.1950 2.2-4.2 g/dL High GLOB 4.5 LAB L501.2000 0.9-2.4 RATIO Low A/G 0.8 LAB L501.2200 8.5-10.1 mg/dL CA Normal 9.0 LAB L501.4100 15-37 U/L High AST 45 LAB L501.4305 45-117 U/L Normal ALK P 81 LAB L501.4405 13-56 U/L Normal ALT 47 LAB L501.4600 0.20-1.00 mg/dL T Normal BILI 0.30 LAB L501.5300 136-145 mmol/L NA Normal 137 LAB L501.5600 3.5-5.1 mmol/L K Normal 4.3 LAB L501.5900 98-107 mmol/L CL Normal 105 LAB L501.6100 21.0-32.0 mmol/L Normal CO2 23.0 LAB L501.6200 5-15 Normal GAP 9 Performed By: #### L500.4050, L501.2450 #### [facility] [address] [place], [place], [address] LIPASE Collected: 11/07/2017 Status: F Source: [place] 11:25 PM [facility] REPOSITORY TYPE CODE TESTS RESULT OUT OF RANGE REFERENCE UNITS LAB L501.2450 73-393 U/L Normal LIPASE 132 Performed By: #### L500.4050, L501.2450 #### [facility] [address] [place], [address] LACTIC ACID Collected: 11/07/2017 Status: F Source: [place] 11:25 PM [facility] REPOSITORY Order Comment: Yes/No query for Sepsis Lactate Rule Y TYPE CODE TESTS RESULT OUT OF RANGE REFERENCE UNITS LAB L503.6005 0.4-2.0 mmol/L Normal LACTIC ACID 1.4 Performed By: #### [id number] #### [facility] [address] [place], [address] ABDOMEN/PELVIS WITHOUT Observed: 11/07/2017 Status: F Source: [place] CONT 11:07 PM [facility] REPOSITORY [facility] Imaging Services [address] [facility] [place] [address] Abdomen/Pelvis without Cont MR#: [id number] Acct: [id number] Name: DEBBY BAILON Rep #: [id number] : 1980 F 36 From: Demetrius Britt PCP: Will Dietz MD Status: REG ER Study: Abdomen/Pelvis without Cont Date of Exam: 11/07/17 Exam# [id number] Ordering Dr: Celine Caputo MD STUDY: CT ABDOMEN AND PELVIS WITHOUT CONTRAST REASON FOR EXAM: Female, 36 years old. Severe abdominal pain and nausea since 10:00 PM. RADIATION DOSAGE (If Supplied By Facility): CTDIvol = ( 19.85 ) mGy, DLP = ( 1016.85 ) mGycm TECHNIQUE: Transaxial images were obtained from the dome of the diaphragm to the symphysis pubis without oral contrast, and without intravenous contrast. Sagittal and coronal images were reconstructed. Individualized dose optimization techniques were used for this CT. COMPARISON: September 15, 2017. FINDINGS: Calcified right lower lobe lung nodule. The visualized portions of the heart are within normal limits. There is decreased attenuation of the liver consistent with steatosis. Mild hepatomegaly. Gallbladder not visualized consistent with a prior cholecystectomy. Normal spleen. Normal pancreas. Normal bilateral adrenal glands. Mild dilatation of the right renal collecting system and right ureter without evidence of obstructing stone.. Normal left kidney. Normal visualized stomach. Normal small intestine. Normal colon. There is non-visualization of the appendix. Normal abdominal aorta. Normal inferior vena cava. Normal retroperitoneum. No intra-abdominal free air. Mild bladder wall thickening noted previously. Normal visualized uterus. No adnexal masses seen. There is a 3.6 x 3.2 cm umbilical hernia containing loops of small bowel, unchanged. Laminectomies at multiple levels in the lumbar spine compatible with spinal bifida repair by history provided in a prior report. CT/Abdomen/Pelvis without Cont IMPRESSION: No evidence of bowel obstruction. Appendix not visualized. Umbilical hernia containing loops of small bowel without evidence of strangulation, not significantly changed. Mild dilatation of the right renal collecting system and right ureter without evidence of obstructing stone. Consider urology consult. Mild hepatomegaly with fatty liver. Old granulomatous disease. Additional nonemergent findings as above. Electronically Signed: Demetrius Britt MD at 1:11 EDT , Service support , CC: Will Dietz MD; Celine Caputo Paper Rewinder Operator: Signed PROGRESS NOTE Observed: 11/07/2017 Status: COMPLETED Source: [place] 3:00 PM [facility] REPOSITORY Debby Bailon is here for consultation at the request of Will Dietz MD for: Urologic Problem (Preform Machine Operator Discuss Knapp Stoma surgery) History of Presenting Problem: Patient referred by Dr. Christensen for problems with her Knapp Stoma. Had Knapp stoma [facility] by Dr. [facility] in [facility]. She developed an umbilical hernia and Dr. Christensen would like to fix it and have the stoma relocated. She reports that her knapp stoma has not been working since July or August (was used to used 1500 cc). Water started leaking out. No urologic history with our practice Has had multiple febrile utis. Performs CIC through via urethra. Patient reports prior visits with Dr. Sears at [facility]. She would like to continue seeing her. Also has urinary incontinence between caths but only caths 3 times a day. Past Medical History: Past Medical History: Diagnosis Date Anxiety Arthritis Depression Diabetes mellitus type 2 in obese Neurogenic bladder Spina bifida Umbilical hernia Past Surgical History: Procedure Laterality Date LAPAROTOMY N/A 08/14/2015 LAPAROTOMY, BOWEL antegrade continence enema (Knapp) stoma performed by Ramana Diaz MD at [facility] Allergies: Allergies Allergen Reactions Mushroom Extract Complex Swelling Peanut Allergy Hives and Shortness Of Breath Medications: Outpatient Encounter Prescriptions as of 11/07/2017 Medication Sig Dispense Refill zolpidem (AMBIEN) 10 MG tablet Take by mouth at bedtime as needed for Sleep Glimepiride 4 MG TABS Take by mouth atorvastatin (LIPITOR) 10 MG tablet Take 10 mg by mouth daily polyethylene glycol (MIRALAX;GLYCOLAX) powder Take 1 Capful by mouth daily METFORMIN HCL PO Take by mouth GABAPENTIN PO Take 300 mg by mouth 3 times daily FLUoxetine HCl (PROZAC PO) Take by mouth oxyCODONE, immediate release, (ROXICODONE) 5 MG IR tablet Take 1 Tab (5 mg) by mouth every 4 hours as needed for Pain Earliest Fill Date: 08/19/15 30 Tab 0 TRAZODONE HCL PO Take 100 mg by mouth nightly at bedtime No facility-administered encounter medications on file as of 11/07/2017. Family Medical History: History reviewed. No pertinent family history. Social History: Social History Social History Marital status: Spouse name: N/A Number of children: N/A Years of education: N/A Occupational History Not on file. Social History Main Topics Smoking status: Passive Smoke Exposure - Never Smoker Smokeless tobacco: Never Used Alcohol use Not on file Drug use: Unknown Sexual activity: Not on file Other Topics Concern Not on file Social History Narrative No narrative on file Additional History Is the patient on a special diet? No Age at toilet training? n/a Per parents, immunizations are up to date. Yes Patient lives with? Father Review of Systems: Pertinent items are noted in HPI. Physical Examination: Physical Exam Vitals: 11/07/17 1455 Weight: (!) 107.6 kg General: Well appearing, alert Eyes: Pupils equal, conjunctivae normal ENT: Ears normal, no nasal discharge Neck: Neck supple, trachea normal Resp: Normal effort, no chest wall deformity Abdomen: Non-tender, no masses Musculoskeletal: No deformity, no edema Neurologic: Normal sensation, normal strength Skin: Warm and dry to palpation, no rash : knapp stoma visible at umbilicus. Some stool leaking from the umbilicus. Small hernia. Laboratory Testing: No results found for this visit on 11/07/17. Imaging: None today Assessment & Plan: Debby was seen today for urologic problem. Diagnoses and all orders for this visit: Neurogenic bowel Neurogenic bladder Acute cystitis without hematuria Generalized abdominal pain Discussed details with patient. Explained that I could relocated the stoma to the right side of the abdomen to allow proper healing of the umbilical hernia. We discussed potential risks, including bowel obstruction, loss of the stoma from devascularization, new hernia at new stoma sight, difficulty, cathing, etc. We discussed risks, benefits, and alternatives of the surgical procedure recommended today (Knapp Stoma revision), including, but not limited to, bleeding, infection, injury to nearby organs, recurrence, need for further surgery, problems with anesthesia, and loss of life. The patient verbalized understanding and wishes to proceed with the above stated procedure. She also understand the risks and benefits of observation or doing nothing. Will coordinate with Dr. Christensen at [facility]. Recommended follow up with Dr. Farhat Sears, an adult urologist at [facility] for ongoing urologic issues. In the mean time, recommended increasing CIC to every 2 to 3 hours. Would not relocate the stoma since her abdominal wall is thick. Explained the stoma limb may not reach through her abdominal wall. Will discuss further with Dr. Christensen Also recommended GI consultation regarding abdominal pain and bowel regimen. Reymundo Serna MD November 07, 2017 Observed: 10/25/2017 Status: F Source: [place] URINE CULTURE 3:[address] [facility] REPOSITORY Culture Result - 50,000 - <100,000 CFU/ml Normal urogenital fred Performed By: #### URCUL #### [facility] [address] [place], [place] [address] URINALYSIS WITH Collected: 10/25/2017 Status: F Source: [place] MICROSCOPIC 3:[address] [facility] REPOSITORY TYPE CODE TESTS RESULT OUT OF RANGE REFERENCE UNITS LAB UCOL Yellow Color Yellow LAB [facility] Clear Clarity Abnormal Cloudy Alert LAB UGLUC Negative mg/dL Glucose, Abnormal Urine >=500 Alert LAB UBIL Negative Bilirubin, Urine Negative LAB UKET Negative Ketones, Urine Negative LAB USPG 1.005-1.030 Specific [place], Ur 1.017 LAB UHGB Negative Abnormal Hemoglobin/Blood, 1+ Alert Ur LAB UPH 4.5-8.0 pH 6.0 LAB UPROT Negative mg/dL Protein, Abnormal Urine 30 Alert LAB UUROB Normal Urobilinogen Normal LAB UNITR Negative Nitrites Negative LAB ULKEST Negative Leukest Abnormal 3+ Alert LAB UCOM Comments SEE COMMENT Result Comment: N/A LAB UMCOM Urine SEE Robbi Comment COMMENT Result Comment: N/A LAB UWBC 0-5 /HPF Abnormal WBC Alert >25 LAB URBC 0-3 /HPF Abnormal RBC Alert 6-10 LAB UEPI /HPF Epithelial Cells SEE COMMENT Result Comment: Few Squamous Epithelial Cells Performed By: #### UAWMIC #### [facility] [address] [place], [place] [address] PROGRESS Observed: 10/25/2017 Status: COMPLETED Source: [place] 2:[address] [facility] REPOSITORY HNO ID: [id number] Author: Will Dietz Service: (none) Author Type: Physician Type: Progress Notes Filed: 10/25/2017 6:01 PM Note Text: Chief Complaint Patient presents with: 4 month F/U HPI Debby Bailon is a 36 year old female who presents here today for Chronic Medical Conditions.. Patient with hx as reviewed and documented as below. Has a umbilical hernia at the same site of her stoma to do her colon flushing to reduce constipation. Is going to be seeing a pediatric urologist who is going to repair the hernia and move the Stoma. Has been doing fine urinary ng for quite some time up until 2 days ago and developed dysuria, polyuria, and cloudy urine. Has frequency, urgency and sometimes incontinence. Has some right flank pain. Has nausea but no vomiting. Slight feeling of fever. Past medical history, appointments, medications, allergies reviewed. Previous Medical History PAST MEDICAL HISTORY Diagnosis Date - Abnormal sensation of left upper and lower extremity 08/07/2013 - Anxiety - Arthritis started age 19 - Cervical radiculopathy 05/02/2013 - Chronic pain 02/12/2015 - Depressive disorder, not elsewhere classified 11/28/2011 [facility] - DJD (degenerative joint disease), thoracic - Dysthymic disorder Depression (non-psychotic), sees BRIM SHAPER at [facility]. 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 Seeing Dr. Gregg - Numbness and tingling of left arm and leg 08/07/2013 - Panic attacks - Recurrent UTI 11/28/2011 - Spina bifida (HCC) 01/06/2016 - Type 2 diabetes mellitus without complication ([facility]) 02/12/2015 - Urinary tract infection, site not specified Recurrent UTI's - Weakness of left upper extremity 08/07/2013 Previous Surgical History PAST SURGICAL HISTORY Procedure Laterality Date - 2D ECHO (EXEP) 06/28/2017 EF=65%. nl - DANDC, DIAG AND/OR THERAPEUTIC Dilation AND curettage - PAST SURGICAL HISTORY OF cholecystectomy - PAST SURGICAL HISTORY OF 09/2012 back surgery x2 - PAST SURGICAL HISTORY OF Left AND 02/2014 foot x2 - PAST SURGICAL HISTORY OF 07/2015 Knapp stoma - STRESS TEST 07/18/2017 normal Family History FAMILY HISTORY Problem Relation Age of Onset - Arthritis Mother - Diabetes Mother - Heart Mother - Hypertension Mother - Lipids Mother - Stroke Mother - Thyroid Mother - Cancer Father Skin - Cancer Maternal Grandmother LIVER CANCER - Cancer Maternal Uncle Great Uncle - Cancer Maternal Uncle Great Uncle Patient Allergies ALLERGIES Allergen Reactions - Mushroom Anaphylaxis - Peanuts Anaphylaxis - Mri Contrast [Gadol* GI Upset Current Medications Current Outpatient Prescriptions on File Prior to Visit: polyethylene glycol 3350 (MIRALAX) 17 gram/dose powder Take 17 g by mouth once daily. propranolol (INDERAL) 10 mg tablet Take 1 tablet by mouth twice daily. lancets (FREESTYLE LANCETS) 28 gauge misc Test blood sugar(s) 1-2 times daily. Dx: 250.0. Insulin: No DULoxetine (CYMBALTA) 30 mg capsule Take 1 capsule by mouth once daily. metFORMIN ER (GLUCOPHAGE XR) 500 mg 24 hr tablet Take 2 tablets by mouth twice daily. lisinopril 2.5 mg tablet Take 1 tablet by mouth once daily. oxybutynin ER (DITROPAN XL) 10 mg 24 hr tablet Take 1 tablet by mouth once daily. blood sugar diagnostic (FREESTYLE LITE STRIPS) test strip Test blood sugar(s) 1-2 times daily. Dx: 250.0. Insulin: No hydrOXYzine pamoate (VISTARIL) 25 mg capsule Take 1 capsule by mouth three times daily as needed. [facility] Blood-Glucose Meter (FREESTYLE LITE METER) monitoring kit Freestyle LITE Meter Kit - gabapentin (NEURONTIN) 300 mg capsule Take 1 capsule by mouth three times daily. zolpidem (AMBIEN) 5 mg tablet Take 1 tablet by mouth at bedtime as needed for Sedation for up to 60 days. [facility] COMPOUNDED PRESCRIPTION Promogran, use as directed, ulcer of left 1st metatarsal, measurement: [id number], Dx: E11.621, L97.522 (Patient not taking: Reported on 10/05/2017 ) No current facility-administered medications on file prior to visit. 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 CARDIOVASCULAR: no having the chest pain like she had been. Still getting the palpitations and shortness of breath. There was a message to her to increase her propranolol to 10 mg twice a day but never did this. GI: Novomiting, or diarrhea. No GERD : See HPI ENDOCRINE: FBS: 130-160 NEURO: No history of syncope, paralysis, seizures or tremors. Has had increased headaches about 2 weeks ago. Feels like her migraines are increased in frequency. EXAM: BP 124/76 (BP Site: Left Arm, BP Position: Sitting, BP Cuff Size: Large Adult) Pulse 78 Temp 37.3 ?C (99.1 ?F) (Left Tympanic) Resp 16 Wt 110.9 kg (244 lb 6.4 oz) SpO2 98% BMI 44.70 kg/m? General Appearance: Well appearing, alert, in no acute distress, well-hydrated, well nourished.. Eyes: Anicteric sclera. Pupils are equally round and reactive to light. Extraocular movements are intact. . Oropharynx: Lips, mucosa, and tongue normal, teeth and gums normal, oropharynx normal. Neck: Supple, no adenopathy; thyroid symmetric, normal size, no bruits. Lungs: Lungs clear to auscultation. No wheezing, rhonchi, rales. Heart: RRR without murmur, gallop, or rubs. No ectopy. Abdomen: Normal abdominal exam, Abdomen soft With positive suprapubic tenderness.. Bowel sounds normal. No masses, organomegaly. Back: positive right flank pain to percussion. Extremities: No deformities, edema, skin discoloration, Musculoskeletal: has her chronic stable upper and lower extremity weakness.. Peripheral Pulses: Normal. Neurologic: Gait normal. Reflexes normal and symmetric. Sensation to light touch intact in upper extremities though less on the left, and intact in upper thighs. Crainal nerves 2-12 intact. Health Maintenance List DILATED RETINAL EXAM due on 01/25/2018 DIABETIC FOOT EXAM due on 02/21/2018 HBA1C due on 04/12/2018 LDL due on 10/10/2018 DTAP,TDAP,TD(2 - Td) due on 09/09/2019 PAP EVERY 5 YEARS due on 07/28/2022 HPV EVERY 5 YEARS due on 07/28/2022 ONE PNEUMOVAX PRIOR TO AGE 65 Completed INFLUENZA Completed Data reviewed Component Latest Ref Rng AND Units 06/02/2017 06/16/2017 10/10/2017 Protein, Total 6.3 - 8.0 g/dL 7.4 7.9 Albumin 3.9 - 4.9 g/dL 3.9 4.2 Calcium 8.5 - 10.2 mg/dL 9.3 9.1 Bilirubin, Total 0.2 - 1.3 mg/dL 0.2 0.3 Alkaline Phosphatase 32 - 117 U/L 73 85 AST 13 - 35 U/L 36 (H) 44 (H) Glucose 74 - 99 mg/dL 283 (H) 178 (H) BUN 7 - 21 mg/dL 11 9 Creatinine 0.58 - 0.96 mg/dL 0.75 0.73 Sodium 136 - 144 mmol/L 137 138 Potassium 3.7 - 5.1 mmol/L 4.3 4.2 Chloride 97 - 105 mmol/L 99 101 CO2 22 - 30 mmol/L 22 21 (L) Anion Gap 9 - 18 mmol/L 16 16 ALT 7 - 38 U/L 43 (H) 55 (H) eGFR- >60 >60 eGFR-All Other Races . >60 >60 Triglyceride <150 mg/dL 71 173 (H) Cholesterol, Total <200 mg/dL 145 170 HDL Cholesterol >39 mg/dL 41 (L) 36 (L) VLDL Cholesterol <30 mg/dL 14 35 (H) LDL Cholesterol <100 mg/dL 90 99 Fasting Time hrs 12 17 TC:HDL Ratio <5.10 3.54 4.72 LDL:HDL Ratio <2.54 2.20 2.75 (H) Non HDL Cholesterol <130 mg/dL 104 134 (H) Hemoglobin A1C 4.3 - 5.6 % 8.1 (H) 8.9 (H) Estimated Average Glucose mg/dL 186 209 A/P ASSESSMENT/PLAN: 1. 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 Paroxysmal SVT (supraventricular tachycardia) (HCC) - ICD9: 427.0, ICD10: I47.1 - Patient to go to taking the propranolol 10 mg twice a day 4. Migraine without aura and without status migrainosus, not intractable - ICD9: 346.10, ICD10: G43.009 - Will see if change in propranolol for the palpitations also helps suppress her migraines 5. Primary insomnia - ICD9: 307.42, ICD10: F51.01 - stable 6. Neuropathy (HCC) - ICD9: 355.9, ICD10: G62.9 - Stable 7. Morbid obesity (HCC) - ICD9: 278.01, ICD10: E66.01 - Patient to try to work on weight loss. 8. Spina bifida with hydrocephalus, unspecified spinal region (HCC) - ICD9: 741.00, ICD10: Q05.4 - S/P surgery 9. Lipomeningocele (HCC) - ICD9: 741.90, ICD10: Q05.9 - as above 10. Recurrent UTI - ICD9: 599.0, ICD10: N39.0 recurrent - Start CIPROFLOXACIN 500 MG TABLET twice a day for 10 days. Check - URINE CULTURE - URINALYSIS WITH MICROSCOPIC 11. Pyelonephritis - ICD9: 590.80, ICD10: N12 As above - CIPROFLOXACIN 500 MG TABLET - URINE CULTURE - URINALYSIS WITH MICROSCOPIC 12. Dysthymic disorder - ICD9: 300.4, ICD10: F34.1 - [facility]. 13. Anxiety - ICD9: 300.00, ICD10: F41.9 - As above. Signed Prescriptions Disp Refills ciprofloxacin HCl (CIPRO) 500 mg tablet 20 tablet 0 Sig: Take 1 tablet by mouth twice daily for 10 days. blood sugar diagnostic (FREESTYLE LITE STRIPS) test strip 50 Strip 11 Sig: Test blood sugar(s) 1-2 times daily. Dx: 250.0. Insulin: No CODIE: No glimepiride (AMARYL) 4 mg tablet 30 tablet 5 Sig: Take 1 tablet by mouth daily with breakfast. atorvastatin (LIPITOR) 10 mg tablet 30 tablet 5 Sig: Take 1 tablet by mouth once daily. f/u in 4 months WAE check CMP, FLP, UA. Urine albumin and a1c prior Time with patient face to face was 25 min Will Dietz MD CNOV Observed: 10/25/2017 Status: COMPLETED Source: [place] 2:[address] [facility] REPOSITORY Office Visit (FAMPWS) DEBBY BAILON ([id number]) 1980 F Date Time Provider Department 10/25/17 2:40 PM WILL DIETZ During your visit today, we recorded the following information about you: Temperature Pulse Respiration Blood pressure 99.1 degrees 78/minute 16/minute 124/76 Weight 110.9 kg Will Dietz MD 10/25/2017 6:01 PM Signed Chief Complaint Patient presents with: 4 month F/U HPI Debby Bailon is a 36 year old female who presents here today for Chronic Medical Conditions.. Patient with hx as reviewed and documented as below. Has a umbilical hernia at the same site of her stoma to do her colon flushing to reduce constipation. Is going to be seeing a pediatric urologist who is going to repair the hernia and move the Stoma. Has been doing fine urinary ng for quite some time up until 2 days ago and developed dysuria, polyuria, and cloudy urine. Has frequency, urgency and sometimes incontinence. Has some right flank pain. Has nausea but no vomiting. Slight feeling of fever. Past medical history, appointments, medications, allergies reviewed. Previous Medical History PAST MEDICAL HISTORY Diagnosis Date - Abnormal sensation of left upper and lower extremity 08/07/2013 - Anxiety - Arthritis started age 19 - Cervical radiculopathy 05/02/2013 - Chronic pain 02/12/2015 - Depressive disorder, not elsewhere classified 11/28/2011 [facility] - DJD (degenerative joint disease), thoracic - Dysthymic disorder Depression (non-psychotic), sees BRIM SHAPER at [facility]. 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 Seeing Dr. Gregg - Numbness and tingling of left arm and leg 08/07/2013 - Panic attacks - Recurrent UTI 11/28/2011 - Spina bifida (HCC) 01/06/2016 - Type 2 diabetes mellitus without complication ([facility]) 02/12/2015 - Urinary tract infection, site not specified Recurrent UTI's - Weakness of left upper extremity 08/07/2013 Previous Surgical History PAST SURGICAL HISTORY Procedure Laterality Date - 2D ECHO (EXEP) 06/28/2017 EF=65%. nl - DANDC, DIAG AND/OR THERAPEUTIC Dilation AND curettage - PAST SURGICAL HISTORY OF cholecystectomy - PAST SURGICAL HISTORY OF 09/2012 back surgery x2 - PAST SURGICAL HISTORY OF Left AND 02/2014 foot x2 - PAST SURGICAL HISTORY OF 07/2015 Knapp stoma - STRESS TEST 07/18/2017 normal Family History FAMILY HISTORY Problem Relation Age of Onset - Arthritis Mother - Diabetes Mother - Heart Mother - Hypertension Mother - Lipids Mother - Stroke Mother - Thyroid Mother - Cancer Father Skin - Cancer Maternal Grandmother LIVER CANCER - Cancer Maternal Uncle Great Uncle - Cancer Maternal Uncle Great Uncle Patient Allergies ALLERGIES Allergen Reactions - Mushroom Anaphylaxis - Peanuts Anaphylaxis - Mri Contrast [Gadol* GI Upset Current Medications Current Outpatient Prescriptions on File Prior to Visit: polyethylene glycol 3350 (MIRALAX) 17 gram/dose powder Take 17 g by mouth once daily. propranolol (INDERAL) 10 mg tablet Take 1 tablet by mouth twice daily. lancets (FREESTYLE LANCETS) 28 gauge misc Test blood sugar(s) 1-2 times daily. Dx: 250.0. Insulin: No DULoxetine (CYMBALTA) 30 mg capsule Take 1 capsule by mouth once daily. metFORMIN ER (GLUCOPHAGE XR) 500 mg 24 hr tablet Take 2 tablets by mouth twice daily. lisinopril 2.5 mg tablet Take 1 tablet by mouth once daily. oxybutynin ER (DITROPAN XL) 10 mg 24 hr tablet Take 1 tablet by mouth once daily. blood sugar diagnostic (FREESTYLE LITE STRIPS) test strip Test blood sugar(s) 1-2 times daily. Dx: 250.0. Insulin: No hydrOXYzine pamoate (VISTARIL) 25 mg capsule Take 1 capsule by mouth three times daily as needed. [facility] Blood-Glucose Meter (FREESTYLE LITE METER) monitoring kit Freestyle LITE Meter Kit - gabapentin (NEURONTIN) 300 mg capsule Take 1 capsule by mouth three times daily. zolpidem (AMBIEN) 5 mg tablet Take 1 tablet by mouth at bedtime as needed for Sedation for up to 60 days. [facility] COMPOUNDED PRESCRIPTION Promogran, use as directed, ulcer of left 1st metatarsal, measurement: [id number], Dx: E11.621, L97.522 (Patient not taking: Reported on 10/05/2017 ) No current facility-administered medications on file prior to visit. 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 CARDIOVASCULAR: no having the chest pain like she had been. Still getting the palpitations and shortness of breath. There was a message to her to increase her propranolol to 10 mg twice a day but never did this. GI: Novomiting, or diarrhea. No GERD : See HPI ENDOCRINE: FBS: 130-160 NEURO: No history of syncope, paralysis, seizures or tremors. Has had increased headaches about 2 weeks ago. Feels like her migraines are increased in frequency. EXAM: BP 124/76 (BP Site: Left Arm, BP Position: Sitting, BP Cuff Size: Large Adult) Pulse 78 Temp 37.3 ?C (99.1 ?F) (Left Tympanic) Resp 16 Wt 110.9 kg (244 lb 6.4 oz) SpO2 98% BMI 44.70 kg/m? General Appearance: Well appearing, alert, in no acute distress, well-hydrated, well nourished.. Eyes: Anicteric sclera. Pupils are equally round and reactive to light. Extraocular movements are intact. . Oropharynx: Lips, mucosa, and tongue normal, teeth and gums normal, oropharynx normal. Neck: Supple, no adenopathy; thyroid symmetric, normal size, no bruits. Lungs: Lungs clear to auscultation. No wheezing, rhonchi, rales. Heart: RRR without murmur, gallop, or rubs. No ectopy. Abdomen: Normal abdominal exam, Abdomen soft With positive suprapubic tenderness.. Bowel sounds normal. No masses, organomegaly. Back: positive right flank pain to percussion. Extremities: No deformities, edema, skin discoloration, Musculoskeletal: has her chronic stable upper and lower extremity weakness.. Peripheral Pulses: Normal. Neurologic: Gait normal. Reflexes normal and symmetric. Sensation to light touch intact in upper extremities though less on the left, and intact in upper thighs. Crainal nerves 2-12 intact. Health Maintenance List DILATED RETINAL EXAM due on 01/25/2018 DIABETIC FOOT EXAM due on 02/21/2018 HBA1C due on 04/12/2018 LDL due on 10/10/2018 DTAP,TDAP,TD(2 - Td) due on 09/09/2019 PAP EVERY 5 YEARS due on 07/28/2022 HPV EVERY 5 YEARS due on 07/28/2022 ONE PNEUMOVAX PRIOR TO AGE 65 Completed INFLUENZA Completed Data reviewed Component Latest Ref Rng AND Units 06/02/2017 06/16/2017 10/10/2017 Protein, Total 6.3 - 8.0 g/dL 7.4 7.9 Albumin 3.9 - 4.9 g/dL 3.9 4.2 Calcium 8.5 - 10.2 mg/dL 9.3 9.1 Bilirubin, Total 0.2 - 1.3 mg/dL 0.2 0.3 Alkaline Phosphatase 32 - 117 U/L 73 85 AST 13 - 35 U/L 36 (H) 44 (H) Glucose 74 - 99 mg/dL 283 (H) 178 (H) BUN 7 - 21 mg/dL 11 9 Creatinine 0.58 - 0.96 mg/dL 0.75 0.73 Sodium 136 - 144 mmol/L 137 138 Potassium 3.7 - 5.1 mmol/L 4.3 4.2 Chloride 97 - 105 mmol/L 99 101 CO2 22 - 30 mmol/L 22 21 (L) Anion Gap 9 - 18 mmol/L 16 16 ALT 7 - 38 U/L 43 (H) 55 (H) eGFR- >60 >60 eGFR-All Other Races . >60 >60 Triglyceride <150 mg/dL 71 173 (H) Cholesterol, Total <200 mg/dL 145 170 HDL Cholesterol >39 mg/dL 41 (L) 36 (L) VLDL Cholesterol <30 mg/dL 14 35 (H) LDL Cholesterol <100 mg/dL 90 99 Fasting Time hrs 12 17 TC:HDL Ratio <5.10 3.54 4.72 LDL:HDL Ratio <2.54 2.20 2.75 (H) Non HDL Cholesterol <130 mg/dL 104 134 (H) Hemoglobin A1C 4.3 - 5.6 % 8.1 (H) 8.9 (H) Estimated Average Glucose mg/dL 186 209 A/P ASSESSMENT/PLAN: 1. 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 Paroxysmal SVT (supraventricular tachycardia) ([facility]) - ICD9: 427.0, ICD10: I47.1 - Patient to go to taking the propranolol 10 mg twice a day 4. Migraine without aura and without status migrainosus, not intractable - ICD9: 346.10, ICD10: G43.009 - Will see if change in propranolol for the palpitations also helps suppress her migraines 5. Primary insomnia - ICD9: 307.42, ICD10: F51.01 - stable 6. Neuropathy ([facility]) - ICD9: 355.9, ICD10: G62.9 - Stable 7. Morbid obesity ([facility]) - ICD9: 278.01, ICD10: E66.01 - Patient to try to work on weight loss. 8. Spina bifida with hydrocephalus, unspecified spinal region ([facility]) - ICD9: 741.00, ICD10: Q05.4 - S/P surgery 9. Lipomeningocele ([facility]) - ICD9: 741.90, ICD10: Q05.9 - as above 10. Recurrent UTI - ICD9: 599.0, ICD10: N39.0 recurrent - Start CIPROFLOXACIN 500 MG TABLET twice a day for 10 days. Check - URINE CULTURE - URINALYSIS WITH MICROSCOPIC 11. Pyelonephritis - ICD9: 590.80, ICD10: N12 As above - CIPROFLOXACIN 500 MG TABLET - URINE CULTURE - URINALYSIS WITH MICROSCOPIC 12. Dysthymic disorder - ICD9: 300.4, ICD10: F34.1 - [facility]. 13. Anxiety - ICD9: 300.00, ICD10: F41.9 - As above. Signed Prescriptions Disp Refills ciprofloxacin HCl (CIPRO) 500 mg tablet 20 tablet 0 Sig: Take 1 tablet by mouth twice daily for 10 days. blood sugar diagnostic (FREESTYLE LITE STRIPS) test strip 50 Strip 11 Sig: Test blood sugar(s) 1-2 times daily. Dx: 250.0. Insulin: No CODIE: No glimepiride (AMARYL) 4 mg tablet 30 tablet 5 Sig: Take 1 tablet by mouth daily with breakfast. atorvastatin (LIPITOR) 10 mg tablet 30 tablet 5 Sig: Take 1 tablet by mouth once daily. f/u in 4 months WAE check CMP, FLP, UA. Urine albumin and a1c prior Time with patient face to face was 25 min MD Will Sinha MD 10/25/2017 3:22 PM Signed Please get labs and urine studies on or after 02/16/2018 prior to next visit. 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) [E11.29, R80.9] Paroxysmal SVT (supraventricular tachycardia) ([facility]) [I47.1] Migraine without aura and without status migrainosus, not intractable [G43.009] Primary insomnia [F51.01] Neuropathy (HCC) [G62.9] Morbid obesity (HCC) [E66.01] Spina bifida with hydrocephalus, unspecified spinal region (HCC) [Q05.4] Lipomeningocele (HCC) [Q05.9] Recurrent UTI [N39.0] Pyelonephritis [N12] Dysthymic disorder [F34.1] Anxiety [F41.9] Order(s):ciprofloxacin HCl (CIPRO) 500 mg tabletTake 1 tablet by mouth twice daily for 10 days.Disp: 20 tabletRfl: 0 URINE CULTURE [SQURCUL] Order #: [id number]. #:[id number] URINALYSIS WITH MICROSCOPIC [SQUAWMIC] Order #: [id number] FUTURE blood sugar diagnostic (FREESTYLE LITE STRIPS) test stripTest blood sugar(s) 1-2 times daily. Dx: 250.0. Insulin: NoDisp: 50 StripRfl: 11 glimepiride (AMARYL) 4 mg tabletTake 1 tablet by mouth daily with breakfast.Disp: 30 tabletRfl: 5 atorvastatin (LIPITOR) 10 mg tabletTake 1 tablet by mouth once daily.Disp: 30 tabletRfl: 5 COMP METABOLIC PANEL [SQCMP] Order #: [id number] FUTURE HGB A1C [AHBXP9A] Order #: [id number] FUTURE LIPID PANEL BASIC [SQLIPB] Order #: [id number] FUTURE URINALYSIS WITH MICROSCOPIC [SQUAWMIC] Order #: [id number] FUTURE ALBUMIN/CREAT RATIO RND UR [SQUACR] Order #: [id number] FUTURE Prescriptions as of 10/25/2017 Sig: BLOOD SUGAR DIAGNOSTIC STRIPS Test blood sugar(s) 1- 2 times* POLYETHYLENE GLYCOL 3350 17 G* Take 17 g by mouth once daily. PROPRANOLOL 10 MG TABLET Take 1 tablet by mouth twice * LANCETS 28 GAUGE Test blood sugar(s) 1- 2 times* DULOXETINE 30 MG CAPSULE,SHERRY* Take 1 capsule by mouth once * METFORMIN ER 500 MG TABLET,EX* Take 2 tablets by mouth twice* LISINOPRIL 2.5 MG TABLET Take 1 tablet by mouth once d* OXYBUTYNIN CHLORIDE ER 10 MG * Take 1 tablet by mouth once d* HYDROXYZINE PAMOATE 25 MG CAP* Take 1 capsule by mouth three* BLOOD-GLUCOSE METER KIT Freestyle LITE Meter Kit - GABAPENTIN 300 MG CAPSULE Take 1 capsule by mouth three* CIPROFLOXACIN 500 MG TABLET Take 1 tablet by mouth twice * GLIMEPIRIDE 4 MG TABLET Take 1 tablet by mouth daily * ATORVASTATIN 10 MG TABLET Take 1 tablet by mouth once d* ZOLPIDEM 5 MG TABLET Take 1 tablet by mouth at bed* COMPOUNDED PRESCRIPTION Promogran, use as directed, u* Patient not taking: Reported on 10/05/2017 Problem List As Of Date 10/25/2017 Noted Resolved Threatened , antepartum [O20.0] INVALID FOR*04/07/2011 Supervision of normal first [Z34.00] INVALID FOR*04/07/2011 Cyst of ovary [N83.209] INVALID FOR* Priority: C Depressive disorder, not elsewhere classified [*INVALID FOR*01/06/2016 Priority: A More... Anxiety [F41.9] INVALID FOR* Priority: A More... Recurrent UTI [N39.0] INVALID FOR* Priority: C Dysthymic disorder [F34.1] Priority: A More... Panic attacks [F41.0] Priority: A Neck pain [M54.2] INVALID FOR* Priority: M Cervical radiculopathy [M54.12] INVALID FOR* Priority: M Weakness of both upper extremities [R29.898] INVALID FOR* Priority: M More... Muscle weakness of lower extremity [M62.81] INVALID FOR* Priority: M More... 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 Morbid obesity ([facility]) [E66.01] INVALID FOR* Priority: B Chronic pain [G89.29] INVALID FOR* Priority: M Neurogenic bladder [N31.9] INVALID FOR* Priority: B Hydronephrosis, right [N13.30] INVALID FOR* Priority: C History of kidney stones [Z87.442] INVALID FOR* Priority: C Spina bifida ([facility]) [Q05.9] INVALID FOR* Priority: B Neurogenic bowel [K59.2] INVALID FOR* Priority: B Primary insomnia [F51.01] INVALID FOR* Priority: A Type 2 diabetes mellitus with proteinuria ([facility])*INVALID FOR* Priority: A Pyelonephritis [N12] INVALID FOR* Diabetic eye exam ([facility]) [Z01.00, E11.9] INVALID FOR* Priority: A More... Migraine without aura and without status migrai*INVALID FOR* Priority: A Type 2 diabetes mellitus with albuminuria ([facility])*INVALID FOR* Priority: A Well adult exam [Z00.00] INVALID FOR* Priority: E More... Ulcer of left foot (HCC) [L97.529] INVALID FOR* Priority: M Paroxysmal SVT (supraventricular tachycardia) (*INVALID FOR* Priority: A More... Other instructions from your clinician: Please get labs and urine studies on or after 02/16/2018 prior to next visit. Prescriptions ordered this encounter Disp Refills Start End CIPROFLOXACIN 500 MG TABLET 20 t* 0 10/25/2017 11/04/2017 Route: ORAL Sig: Take 1 tablet by mouth twice daily for 10 days. BLOOD SUGAR DIAGNOSTIC STRIPS 50 S* 11 10/25/2017 Sig: Test blood sugar(s) 1-2 times daily. Dx: 250.0. Insulin: No GLIMEPIRIDE 4 MG TABLET 30 t* 5 10/25/2017 Route: ORAL Sig: Take 1 tablet by mouth daily with breakfast. ATORVASTATIN 10 MG TABLET 30 t* 5 10/25/2017 Route: ORAL Sig: Take 1 tablet by mouth once daily. Medications Discontinued During This Encounter ciprofloxacin HCl (CIPRO) 250 mg tab* 10/25/2017 Class: Historical Med Route: ORAL Sig: Take 500 mg by mouth twice daily. Disc: Course of therapy completed blood sugar diagnostic (FREESTYLE LI* 50 S* 11 06/17/2016 10/25/2017 Sig: Test blood sugar(s) 1-2 times daily. Dx: 250.0. Insulin: No Disc: Reason for discontinue is not on file. Disposition: Return in about 4 months (around 02/25/2018) for complete PE. Follow-up and Disposition History Recorded Encounter Status:Closed by WILL DIETZ on 10/25/17 PROGRESS Observed: 10/17/2017 Status: COMPLETED Source: [facility] 4:42 PM CLINIC OTHER CAMPUS REPOSITORY O ID: [id number] Author: Anne Christensen Service: (none) Author Type: Physician Type: Progress Notes Filed: 10/17/2017 4:47 PM Note Text: Patient referred by: Fawn oCyne MD [address] [facility] [id number] HPI: This is a new patient consult from Dr. Coyne. 36-year-old female with a history of spina bifida and neurogenic bladder. She underwent a maze procedure at [facility] for constipation. She has developed pain at the umbilicus. She has some nausea but no vomiting. She was diagnosed with a bowel obstruction. She has no diarrhea currently. Her pain is in the periumbilical region. Other than her Maze procedure she has not had any abdominal surgeries. She has pain when she eats. She is found to have an umbilical hernia. . PAST MEDICAL HISTORY Diagnosis Date - Abnormal sensation of left upper and lower extremity 08/07/2013 - Anxiety - Arthritis started age 19 - Cervical radiculopathy 05/02/2013 - Chronic pain 02/12/2015 - Depressive disorder, not elsewhere classified 11/28/2011 [facility] - DJD (degenerative joint disease), thoracic - Dysthymic disorder Depression (non-psychotic), sees BRIM SHAPER at [facility]. 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 Seeing Dr. Gregg - Numbness and tingling of left arm and leg 08/07/2013 - Panic attacks - Recurrent UTI 11/28/2011 - Spina bifida (HCC) 01/06/2016 - Type 2 diabetes mellitus without complication ([facility]) 02/12/2015 - Urinary tract infection, site not specified Recurrent UTI's - Weakness of left upper extremity 08/07/2013 PAST SURGICAL HISTORY Procedure Laterality Date - 2D ECHO (EXEP) 06/28/2017 EF=65%. nl - DANDC, DIAG AND/OR THERAPEUTIC Dilation AND curettage - PAST SURGICAL HISTORY OF cholecystectomy - PAST SURGICAL HISTORY OF 09/2012 back surgery x2 - PAST SURGICAL HISTORY OF Left AND 02/2014 foot x2 - PAST SURGICAL HISTORY OF 07/2015 Knapp stoma - STRESS TEST 07/18/2017 normal FAMILY HISTORY Problem Relation Age of Onset - Arthritis Mother - Diabetes Mother - Heart Mother - Hypertension Mother - Lipids Mother - Stroke Mother - Thyroid Mother - Cancer Father Skin - Cancer Maternal Grandmother LIVER CANCER - Cancer Maternal Uncle Great Uncle - Cancer Maternal Uncle Great Uncle Social History Marital status: Spouse name: MEHDI Years of education: 12 Number of children: 0 Occupational History 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 ciprofloxacin HCl (CIPRO) 250 mg tablet Take 500 mg by mouth twice daily. propranolol (INDERAL) 10 mg tablet Take 1 tablet by mouth twice daily. lancets (FREESTYLE LANCETS) 28 gauge misc Test blood sugar(s) 1-2 times daily. Dx: 250.0. Insulin: No DULoxetine (CYMBALTA) 30 mg capsule Take 1 capsule by mouth once daily. metFORMIN ER (GLUCOPHAGE XR) 500 mg 24 hr tablet Take 2 tablets by mouth twice daily. lisinopril 2.5 mg tablet Take 1 tablet by mouth once daily. oxybutynin ER (DITROPAN XL) 10 mg 24 hr tablet Take 1 tablet by mouth once daily. blood sugar diagnostic (FREESTYLE LITE STRIPS) test strip Test blood sugar(s) 1-2 times daily. Dx: 250.0. Insulin: No hydrOXYzine pamoate (VISTARIL) 25 mg capsule Take 1 capsule by mouth three times daily as needed. [facility] Blood-Glucose Meter (FREESTYLE LITE METER) monitoring kit Freestyle LITE Meter Kit - gabapentin (NEURONTIN) 300 mg capsule Take 1 capsule by mouth three times daily. zolpidem (AMBIEN) 5 mg tablet Take 1 tablet by mouth at bedtime as needed for Sedation for up to 60 days. [facility] COMPOUNDED PRESCRIPTION Promogran, use as directed, ulcer of left 1st metatarsal, measurement: [id number], Dx: E11.621, L97.522 (Patient not taking: Reported on 10/05/2017 ) No current facility-administered medications for this visit. ALLERGIES Allergen Reactions - Mri Contrast [Gadol* GI Upset - Mushroom Anaphylaxis - Peanuts Anaphylaxis REVIEW OF SYSTEMS: GENERAL: No weight loss, malaise or fevers GI: Negative for nausea , vomiting, diarrhea, constipation and signs of jaundice Positive for abdominal pain Periumbilical PHYSICAL EXAM: BP 130/82 Pulse 73 Ht 5' 2 (1.58m) Wt 242 lb 9.6 oz (110.0kg) SpO2 97% BMI 44.36 kg/(m2). GENERAL APPEARANCE: Well appearing, alert, in no acute distress, well-hydrated, well nourished., Overweight. ABDOMEN: Abdomen is soft. There is tenderness at the periumbilical region. There is no rebound or guarding. NEURO: Alert, oriented x3, no asterixis, speech clear and articulate and RODRÍGUEZ HEART: regular rate and rhythm, without murmur LUNGS: clear to auscultation, without rales or wheeze, good air exchange DATA: Diagnostic tests reviewed for today's visit: Most recent imaging A total of 30 minutes was spent in direct patient contact. Greater than 50% of the direct patient contact time was spent in counseling or coordination of care. ASSESSMENT / PLAN: 1. Incisional hernia with obstruction but no gangrene I reviewed her imaging. This shows evidence of a hernia at her mace exit site. This is containing a loop of small bowel which is likely causing a partial small bowel obstruction. Optimal treatment would be surgical correction of this. This will likely need to entail relocation of her mace stoma. I will put a consult in the pediatric urology for combined effort. - CONSULT TO PEDS UROLOGY Anne Christensen MD CNOV Observed: 10/17/2017 Status: COMPLETED Source: [facility] 3:00 PM [facility]IN[facility] OTHER CAMPUS REPOSITORY Office Visit (AGGENS1) DEBBY BAILON ([id number]) 1980 F Date Time Provider Department 10/17/17 3:00 PM ANNE CHRISTENSEN A[facility]ENS1 During your visit today, we recorded the following information about you: Pulse Blood pressure Weight Height 73/minute 130/82 110 kg 1.575 m Anne Christensen MD 10/17/2017 4:47 PM Signed Patient referred by: Fawn Coyne MD [address] [facility] [id number] HPI: This is a new patient consult from Dr. Coyne. 36-year-old female with a history of spina bifida and neurogenic bladder. She underwent a maze procedure at [facility] for constipation. She has developed pain at the umbilicus. She has some nausea but no vomiting. She was diagnosed with a bowel obstruction. She has no diarrhea currently. Her pain is in the periumbilical region. Other than her Maze procedure she has not had any abdominal surgeries. She has pain when she eats. She is found to have an umbilical hernia. . PAST MEDICAL HISTORY Diagnosis Date - Abnormal sensation of left upper and lower extremity 08/07/2013 - Anxiety - Arthritis started age 19 - Cervical radiculopathy 05/02/2013 - Chronic pain 02/12/2015 - Depressive disorder, not elsewhere classified 11/28/2011 [facility] - DJD (degenerative joint disease), thoracic - Dysthymic disorder Depression (non-psychotic), sees BRIM SHAPER at [facility]. 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 Seeing Dr. Gregg - Numbness and tingling of left arm and leg 08/07/2013 - Panic attacks - Recurrent UTI 11/28/2011 - Spina bifida (HCC) 01/06/2016 - Type 2 diabetes mellitus without complication (HCC) 02/12/2015 - Urinary tract infection, site not specified Recurrent UTI's - Weakness of left upper extremity 08/07/2013 PAST SURGICAL HISTORY Procedure Laterality Date - 2D ECHO (EXEP) 06/28/2017 EF=65%. nl - DANDC, DIAG AND/OR THERAPEUTIC Dilation AND curettage - PAST SURGICAL HISTORY OF cholecystectomy - PAST SURGICAL HISTORY OF 09/2012 back surgery x2 - PAST SURGICAL HISTORY OF Left AND 02/2014 foot x2 - PAST SURGICAL HISTORY OF 07/2015 Knapp stoma - STRESS TEST 07/18/2017 normal FAMILY HISTORY Problem Relation Age of Onset - Arthritis Mother - Diabetes Mother - Heart Mother - Hypertension Mother - Lipids Mother - Stroke Mother - Thyroid Mother - Cancer Father Skin - Cancer Maternal Grandmother LIVER CANCER - Cancer Maternal Uncle Great Uncle - Cancer Maternal Uncle Great Uncle Social History Marital status: Spouse name: MEHDI Years of education: 12 Number of children: 0 Occupational History 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 ciprofloxacin HCl (CIPRO) 250 mg tablet Take 500 mg by mouth twice daily. propranolol (INDERAL) 10 mg tablet Take 1 tablet by mouth twice daily. lancets (FREESTYLE LANCETS) 28 gauge misc Test blood sugar(s) 1-2 times daily. Dx: 250.0. Insulin: No DULoxetine (CYMBALTA) 30 mg capsule Take 1 capsule by mouth once daily. metFORMIN ER (GLUCOPHAGE XR) 500 mg 24 hr tablet Take 2 tablets by mouth twice daily. lisinopril 2.5 mg tablet Take 1 tablet by mouth once daily. oxybutynin ER (DITROPAN XL) 10 mg 24 hr tablet Take 1 tablet by mouth once daily. blood sugar diagnostic (FREESTYLE LITE STRIPS) test strip Test blood sugar(s) 1-2 times daily. Dx: 250.0. Insulin: No hydrOXYzine pamoate (VISTARIL) 25 mg capsule Take 1 capsule by mouth three times daily as needed. [facility] Blood-Glucose Meter (FREESTYLE LITE METER) monitoring kit Freestyle LITE Meter Kit - gabapentin (NEURONTIN) 300 mg capsule Take 1 capsule by mouth three times daily. zolpidem (AMBIEN) 5 mg tablet Take 1 tablet by mouth at bedtime as needed for Sedation for up to 60 days. [facility] COMPOUNDED PRESCRIPTION Promogran, use as directed, ulcer of left 1st metatarsal, measurement: [id number], Dx: E11.621, L97.522 (Patient not taking: Reported on 10/05/2017 ) No current facility-administered medications for this visit. ALLERGIES Allergen Reactions - Mri Contrast [Gadol* GI Upset - Mushroom Anaphylaxis - Peanuts Anaphylaxis REVIEW OF SYSTEMS: GENERAL: No weight loss, malaise or fevers GI: Negative for nausea , vomiting, diarrhea, constipation and signs of jaundice Positive for abdominal pain Periumbilical PHYSICAL EXAM: BP 130/82 Pulse 73 Ht 5' 2 (1.58m) Wt 242 lb 9.6 oz (110.0kg) SpO2 97% BMI 44.36 kg/(m2). GENERAL APPEARANCE: Well appearing, alert, in no acute distress, well-hydrated, well nourished., Overweight. ABDOMEN: Abdomen is soft. There is tenderness at the periumbilical region. There is no rebound or guarding. NEURO: Alert, oriented x3, no asterixis, speech clear and articulate and RODRÍGUEZ HEART: regular rate and rhythm, without murmur LUNGS: clear to auscultation, without rales or wheeze, good air exchange DATA: Diagnostic tests reviewed for today's visit: Most recent imaging A total of 30 minutes was spent in direct patient contact. Greater than 50% of the direct patient contact time was spent in counseling or coordination of care. ASSESSMENT / PLAN: 1. Incisional hernia with obstruction but no gangrene I reviewed her imaging. This shows evidence of a hernia at her mace exit site. This is containing a loop of small bowel which is likely causing a partial small bowel obstruction. Optimal treatment would be surgical correction of this. This will likely need to entail relocation of her mace stoma. I will put a consult in the pediatric urology for [facility]. - CONSULT TO [facility] Anne Christensen MD Referring Provider: FAWN COYNE [[id number]] Allergies As of Date: 10/17/2017 Noted Allergy Reaction MRI CONTRAST (GADOLINIUM-CONTAINI*01/03/2017 8 - GI Upset MUSHROOM 06/10/2016 10 - Anaphylaxis PEANUTS 06/10/2016 10 - Anaphylaxis Date Reviewed: 10/17/2017 Reviewed by: Anne Christensen - Fully Assessed Reason for Visit: New Patient [172] Primary Visit Diagnosis:Incisional hernia with obstruction but no gangrene [K43.0] Order(s):CONSULT TO PEDS UROLOGY [[id number]] Order #: [id number]: 1 Prescriptions as of 10/17/2017 Sig: POLYETHYLENE GLYCOL 3350 17 G* Take 17 g by mouth once daily. CIPROFLOXACIN 250 MG TABLET Take 500 mg by mouth twice da* PROPRANOLOL 10 MG TABLET Take 1 tablet by mouth twice * LANCETS 28 GAUGE Test blood sugar(s) 1- 2 times* DULOXETINE 30 MG CAPSULE,SHERRY* Take 1 capsule by mouth once * METFORMIN ER 500 MG TABLET,EX* Take 2 tablets by mouth twice* LISINOPRIL 2.5 MG TABLET Take 1 tablet by mouth once d* OXYBUTYNIN CHLORIDE ER 10 MG * Take 1 tablet by mouth once d* BLOOD SUGAR DIAGNOSTIC STRIPS Test blood sugar(s) 1- 2 times* HYDROXYZINE PAMOATE 25 MG CAP* Take 1 capsule by mouth three* BLOOD-GLUCOSE METER KIT Freestyle LITE Meter Kit - GABAPENTIN 300 MG CAPSULE Take 1 capsule by mouth three* ZOLPIDEM 5 MG TABLET Take 1 tablet by mouth at bed* COMPOUNDED PRESCRIPTION Promogran, use as directed, u* Patient not taking: Reported on 10/05/2017 Problem List As Of Date 10/17/2017 Noted Resolved Threatened , antepartum [O20.0] INVALID FOR*04/07/2011 Supervision of normal first [Z34.00] INVALID FOR*04/07/2011 Cyst of ovary [N83.209] INVALID FOR* Priority: C Depressive disorder, not elsewhere classified [*INVALID FOR*01/06/2016 Priority: A More... Anxiety [F41.9] INVALID FOR* Priority: A More... Recurrent UTI [N39.0] INVALID FOR* Priority: C Dysthymic disorder [F34.1] Priority: A More... Panic attacks [F41.0] Priority: A Neck pain [M54.2] INVALID FOR* Priority: M Cervical radiculopathy [M54.12] INVALID FOR* Priority: M Weakness of both upper extremities [R29.898] INVALID FOR* Priority: M More... Muscle weakness of lower extremity [M62.81] INVALID FOR* Priority: M More... 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 Morbid obesity (HCC) [E66.01] INVALID FOR* Priority: B Chronic pain [G89.29] INVALID FOR* Priority: M Neurogenic bladder [N31.9] INVALID FOR* Priority: B Hydronephrosis, right [N13.30] INVALID FOR* Priority: C History of kidney stones [Z87.442] INVALID FOR* Priority: C Spina bifida (HCC) [Q05.9] INVALID FOR* Priority: B Neurogenic bowel [K59.2] INVALID FOR* Priority: B Primary insomnia [F51.01] INVALID FOR* Priority: A 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)*INVALID FOR* Priority: A Pyelonephritis [N12] INVALID FOR* Diabetic eye exam ([facility]) [Z01.00, E11.9] INVALID FOR* Priority: A More... Migraine without aura and without status migrai*INVALID FOR* Priority: A Type 2 diabetes mellitus with albuminuria ([facility])*INVALID FOR* Priority: A Well adult exam [Z00.00] INVALID FOR* Priority: E More... Ulcer of left foot ([facility]) [L97.529] INVALID FOR* Priority: M Paroxysmal SVT (supraventricular tachycardia) (*INVALID FOR* Priority: A More... Encounter Status:Closed by ANNE CHRISTENSEN MD on 10/17/17 EMERGENCY DEPARTMENT Observed: 10/14/2017 Status: F Source: [place] SUMMARY 10:47 PM [facility] REPOSITORY [facility] Medical Records Department [address] [place] [id number] Emergency Department Summary 10/14/170 MR#: [id number] Acct: [id number] Name: DEBBY BAILON Rep #: [id number] : 1980 36 From: Will Barcenas MD PCP: Will Dietz MD Status: DEP ER - ER Visit Summary Date of Service: 10/14/17 Chief Complaint: Abdominal umbilical hernia pain History of Present Illness: The patient is a 36 F no history of umbilical hernia. She has had prior abdominal surgeries for cholecystectomy and some type of stoma procedure. Patient states she saw Dr. Fawn Coyne at the [facility] to have her hernia repaired. Due to her complicated prior abdominal surgery Dr. Coyne has referred her up to [facility] and they are actually going to evaluate her on Monday. Patient states she has had intermittent abdominal pain for last several months. Associated nausea. No vomiting. No diarrhea. No fever. She has had bowel movements all week. She denies any dysuria. She also has a neurogenic bladder. She denies any fever. She has had pain like this before. She has never had a bowel obstruction. Physical Examination: Well-appearing young female. Vital signs are stable afebrile. She does not look septic toxic in any acute distress. H EENT exam unremarkable. Moist wheeze members. Neck nontender no lymphadenopathy. Lungs clear to auscultation bilaterally. Heart regular rhythm no murmur rate about 90. Abdomen soft nondistended normal bowel sounds. Mildly obese. No peritoneal signs. No signs of obstruction or distention. She does have a easily reducible umbilical hernia. Both the right upper right lower quadrant unremarkable. There are no peritoneal signs. She is moving all 4 extremities. Neurologically she is awake and alert without focal deficits. Back exam nontender. Test Results: Medically the patient has no signs of bowel obstruction. She does not need any imaging. She had a full workup September 15 which was negative other than the hernia and neurogenic bladder. Emergency Department Course and Treatment: Discharge to home. Follow-up with her [facility] appointment on Monday. Treatment Plan: [] Disposition: Discharge Impression: Acute on chronic abdominal pain History of umbilical hernia easily reducible History of spina bifida and neurogenic bladder This note was generated with EverTune dictation software. It may contain incorrect words, spelling, and punctuation that were not noted in review of the chart prior to signing ED Disposition - Plan for ED Patient: Chief Complaint: Abd Pain Referrals: Will Dietz MD [Primary Care Provider] - What to do if you have Problems For any increased pain, shortness of breath, bleeding, nausea or vomiting, chest pain, or any unexpected problems, contact your Primary Care Provider. Call [facility] ([phone]) or report to the closest Emergency Room. Call 911 if necessary. 10/14/17 1218 <Electronically signed by Will Barcenas MD> Date Will Barcenas MD Cosigner Signature (If Indicated): Date CC: Will Dietz MD DISCHARGE INSTRUCTION Observed: 10/14/2017 Status: F Source: [place] 10:47 PM [facility] REPOSITORY [facility] Medical Records Department [address] [place] [address] Discharge Instruction 10/14/17 1923 MR#: [id number] Acct: [id number] Name: DEBBY BAILON Rep #: [id number] : 1980 36 From: Will Barcenas MD PCP: Will Dietz MD Status: DEP ER ED Disposition - Plan for ED Patient: Disposition: Home or Assisted Living Chief Complaint: Abd Pain Additional Instructions: Tylenol and/or Motrin for pain. Plenty of fluids such as salt water and fruits, vegetables and fiber for constipation. Follow-up with your [facility] appointment on Monday. Return to ER if increasing abdominal pain, distention, fever or intractable vomiting. Currently there are no signs of bowel obstruction. What to do if you have Problems For any increased pain, shortness of breath, bleeding, nausea or vomiting, chest pain, or any unexpected problems, contact your Primary Care Provider. Call [facility] ([phone]) or report to the closest Emergency Room. Call 911 if necessary. 10/14/17 2247 <Electronically signed by Will Barcenas MD> Date Will Barcenas MD Cosigner Signature (If Indicated): Date CC: Will Dietz MD COMP METABOLIC PANEL Collected: 10/10/2017 Status: F Source: [place] 2:36 PM [facility] TYPE CODE TESTS RESULT OUT OF REFERENCE UNITS RANGE LAB TP 6.3-8.0 g/dL Protein, Total 7.9 LAB ALB 3.9-4.9 g/dL Albumin 4.2 LAB CA 8.5-10.2 mg/dL Calcium, Total 9.1 LAB TBIL 0.2-1.3 mg/dL Bilirubin, Total 0.3 LAB ALKP 32-117 U/L Alkaline Phosphatase 85 LAB AST 13-35 U/L AST High 44 LAB GLU 74-99 mg/dL Glucose High 178 Result Comment: The [place] Diabetes Association (ADA) provides guidance for cutoff values for fasting glucose and random glucose. The ADA defines fasting as no caloric intake for at least 8 hours. Fas ting plasma glucose results between 100 to 125 mg/dL indicate increased risk for diabetes (prediabetes). Fasting plasma glucose results greater than or equal to 126 mg/dL meet the criteria for diagnosis of diabetes. In the absence of unequivocal hyperglycemia, results should be confirmed by repeat testing. In a patient with classic symptoms of hyperglycemia or hyperglycemic crisis, random plasma glucose results greater than or equal to 200 mg/dL meet the criteria for diagnosis of diabetes. Reference: Standards of Medical Care in Diabetes 2016, [place] Diabetes Association. Diabetes Care. 2016.39(Suppl 1). LAB BUN 7-21 mg/dL BUN 9 LAB CRET 0.58-0.96 mg/dL Creatinine 0.73 LAB NA 136-144 mmol/L Sodium 138 LAB K 3.7-5.1 mmol/L Potassium 4.2 LAB CL 97-105 mmol/L Chloride 101 LAB CO2 22-30 mmol/L Low CO2 21 LAB AGAP 9-18 mmol/L Anion Gap 16 LAB ALT 7-38 U/L ALT High 55 LAB GFRAA eGFR- Amer. >60 LAB GFRNAA . eGFR-All Other Races >60 Result Comment: eGFR (Estimated GFR) Units of measure: mL/min/1.73 meters squared eGFR is derived from the reexpressed MDRD Study equation using the following parameters: serum creatinine, age, gender and race. The creatinine assay has been calibrated to be traceable to IDMS. An eGFR <60 mL/min/1.73m2 for >3 months is consistent with chronic kidney disease. Refer to KDOQI guidelines for clinical interpretation. In patients with unstable renal function, e.g. those with acute kidney injury, the eGFR may not accurately reflect actual GFR. Performed By: #### CMP, LIPB, HBA1C #### [facility] [address] [place] [id number] LIPID PANEL, BASIC Collected: 10/10/2017 Status: F Source: [place] 2:36 PM [facility] [place] REPOSITORY TYPE CODE TESTS RESULT OUT OF REFERENCE UNITS RANGE LAB CHOL <200 mg/dL Cholesterol 170 Result Comment: <200 mg/dL, Desirable 200-239 mg/dL, Borderline high >239 mg/dL, High LAB TRIGLY <150 mg/dL Triglyceride High 173 Result Comment: <150 mg/dL, Normal 150-199 mg/dL, Borderline high 200-499 mg/dL, High >499 mg/dL, Very high LAB HDL >39 mg/dL HDL-Cholesterol Low 36 Result Comment: 40-59 mg/dL, Acceptable >59 mg/dL, High: Negative risk factor for coronary heart disease <40 mg/dL, Low: Positive risk factor for coronary heart disease LAB LDL <100 mg/dL LDL-Cholesterol 99 Result Comment: <100 mg/dL, Optimal 100-129 mg/dL, Near optimal/above optimal 130-159 mg/dL, Borderline high 160-189 mg/dL, High >189 mg/dL, Very high Secondary prevention optimal LDL Cholesterol levels are recommended to be < 70 mg/dL LAB NONHDL <130 mg/dL Non HDL High Cholesterol 134 Result Comment: <130 mg/dL, Optimal 130-159 mg/dL, Near optimal/above optimal 160-189 mg/dL, Borderline high 190-219 mg/dL, High >219 mg/dL, Very high Secondary prevention optimal non HDL Cholesterol levels are recommended to be < 100 mg/dL LAB FT hrs Fasting Time 17 LAB VLDL <30 mg/dL High VLDL Cholesterol 35 LAB TCHDL <5.10 TC:HDL Ratio 4.72 LAB LDLHDL <2.54 High LDL:HDL Ratio 2.75 Result Comment: Reference: 1. National Cholesterol Education Program ATP III Guideline At-A-Glance Quick Desk Reference: National Heart, Lung, and Blood [place]. National Institutes of Health. 2001: NIH Publication No. 01-3305. 2. An International Atherosclerosis Society position paper: global recommendations for the management of dyslipidemia: executive summary, Atherosclerosis. 2014: 232(2):410-413. Performed By: #### CMP, LIPB, HBA1C #### [facility] [address] [place], [place] [address] HEMOGLOBIN A1C Collected: 10/10/2017 Status: F Source: [place] 2:[address] [facility] REPOSITORY TYPE CODE TESTS RESULT OUT OF REFERENCE UNITS RANGE LAB HGBA1C 4.3-5.6 % High Hemoglobin A1c 8.9 LAB HBA0 mg/dL Est. Average Glucose 209 Result Comment: eAG: (Estimated average glucose) is a calculated value from HgbA1c and is sales and marketing representative of the average blood glucose level in the last 2-3 month period. Performed By: #### CMP, LIPB, HBA1C #### [facility] [address] [place], [place] [address] PROGRESS Observed: 10/06/2017 Status: COMPLETED Source: [place] 8:[address] [facility] REPOSITORY HNO ID: [id number] Author: Fawn Coyne Service: (none) Author Type: Physician Type: Progress Notes Filed: 10/06/2017 8:41 PM Note Text: Debby Bailon 1980 REFERRING PHYSICIAN: Mariana Cordero I, DO CHIEF COMPLAINT: Abdominal Pain HPI: The patient is a 36 year old female presents with complaint of abdominal pain for the past two months. Complaint of pain after eating, primarily in the periumbilical area. States that the periumbilical area would become rock hard and then pop out of the stomach. Sometimes feels like a heartbeat throbbing pain in the area. States that it hurst to sit and hurts to stand. The pain would last about half and hour and would occur every day. She states that sometimes she cannot even get out of bed. She states that she tries to eat, but when she eats she states that it kills me. Denies weight loss. She states that she has spina bifida and has chronic constipation for which she underwent Knapp procedure about 2 years ago. She had been using the Knapp stoma, up until several months ago, when rats chewed up what sounds like her equipment. Then she was prescribed miralax, then used enemas, but has return of her constipation, lasting for several days. She underwent evaluation with CT scan from an ED visit on 09/15/17. The CT scan reveals an umbilical hernia with loop of bowel (Knapp stoma) Patient was told that this was the source of all her complaints. PAST MEDICAL HISTORY Diagnosis Date - Abnormal sensation of left upper and lower extremity 08/07/2013 - Anxiety - Arthritis started age 19 - Cervical radiculopathy 05/02/2013 - Chronic pain 02/12/2015 - Depressive disorder, not elsewhere classified 11/28/2011 [facility] - DJD (degenerative joint disease), thoracic - Dysthymic disorder Depression (non-psychotic), sees BRIM SHAPER at [facility]. 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 Seeing Dr. Gregg - Numbness and tingling of left arm and leg 08/07/2013 - Panic attacks - Recurrent UTI 11/28/2011 - Spina bifida (HCC) 01/06/2016 - Type 2 diabetes mellitus without complication ([facility]) 02/12/2015 - Urinary tract infection, site not specified Recurrent UTI's - Weakness of left upper extremity 08/07/2013 PAST SURGICAL HISTORY Procedure Laterality Date - 2D ECHO (EXEP) 06/28/2017 EF=65%. nl - DANDC, DIAG AND/OR THERAPEUTIC Dilation AND curettage - PAST SURGICAL HISTORY OF cholecystectomy - PAST SURGICAL HISTORY OF 09/2012 back surgery x2 - PAST SURGICAL HISTORY OF Left AND 02/2014 foot x2 - PAST SURGICAL HISTORY OF 07/2015 Knapp stoma - STRESS TEST 07/18/2017 normal Current Outpatient Prescriptions: polyethylene glycol 3350 (MIRALAX) 17 gram/dose powder Take 17 g by mouth once daily. propranolol (INDERAL) 10 mg tablet Take 1 tablet by mouth twice daily. lancets (FREESTYLE LANCETS) 28 gauge misc Test blood sugar(s) 1-2 times daily. Dx: 250.0. Insulin: No DULoxetine (CYMBALTA) 30 mg capsule Take 1 capsule by mouth once daily. metFORMIN ER (GLUCOPHAGE XR) 500 mg 24 hr tablet Take 2 tablets by mouth twice daily. lisinopril 2.5 mg tablet Take 1 tablet by mouth once daily. oxybutynin ER (DITROPAN XL) 10 mg 24 hr tablet Take 1 tablet by mouth once daily. blood sugar diagnostic (FREESTYLE LITE STRIPS) test strip Test blood sugar(s) 1-2 times daily. Dx: 250.0. Insulin: No hydrOXYzine pamoate (VISTARIL) 25 mg capsule Take 1 capsule by mouth three times daily as needed. [facility] Blood-Glucose Meter (FREESTYLE LITE METER) monitoring kit Freestyle LITE Meter Kit - gabapentin (NEURONTIN) 300 mg capsule Take 1 capsule by mouth three times daily. ciprofloxacin HCl (CIPRO) 250 mg tablet Take 500 mg by mouth twice daily. zolpidem (AMBIEN) 5 mg tablet Take 1 tablet by mouth at bedtime as needed for Sedation for up to 60 days. 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 Social History Main Topics Smoking status: Never Smoker Smokeless tobacco: Never Used Alcohol use: No Drug use: No Sexual activity: Not Currently Partners with: Male control/protection: None FAMILY HISTORY Problem Relation Age of Onset - Arthritis Mother - Diabetes Mother - Heart Mother - Hypertension Mother - Lipids Mother - Stroke Mother - Thyroid Mother - Cancer Father Skin - Cancer Maternal Grandmother LIVER CANCER - Cancer Maternal Uncle Great Uncle - Cancer Maternal Uncle Great Uncle REVIEW OF SYSTEMS: General: The patient NOTES fatigue, denies weight loss, NOTES weight gain, NOTES feeling hot, and NOTES feelings of cold. Eyes: The patient denies glaucoma, denies eye injury/surgery, wears glasses or contacts. Ear/Nose/Throat: The patient denies allergies, denies hayfever, denies ear infections, and denies bloody noses. Cardiovascular: The patient denies chest pain, denies heart disease, denies high blood pressure,denies cardiac stent, denies prior heart attack, NOTES irregular heart beat, denies high cholesterol, NOTES poor circulation, denies heart failure, other cardiac issues, NOTES claudication, denies cold feet, denies peripheral arterial stent. Respiratory: The patient denies tuberculosis, denies pneumonia, denies frequent cough, denies pulmonary embolism, denies shortness of breath, and denies coughing up blood. Gastrointestinal: The patient denies difficulty swallowing, denies acid reflux, denies ulcers, denies vomiting, denies jaundice/hepatitis, denies gallbladder problems, denies black or tarry stools, denies hemorrhoids, NOTES bleeding from rectum, denies diverticulitis, NOTES constipation, denies diarrhea, denies loss of stool control, and NOTES hernias. Kidney/Bladder: The patient NOTES kidney stones, NOTES urine infections, and denies bloody urine. Skin: The patient denies a history of skin cancer, denies bleeding/changing moles, and denies a history of skin rash. Neurologic: The patient denies a history of epilepsy/convulsions, NOTES headaches, NOTES head/spinal injuries, and denies stroke/TIA. Psychiatric: The patient NOTES psychiatric medications, NOTES depression, and denies voices, denies substance abuse. Endocrine: The patient denies thyroid disorders, NOTES diabetes, and denies hormonal problems. Hematologic: The patient denies a history of bruising, denies bleeding, and denies anemia, denies blood clots. Infections: The patient denies a history of measles and mumps, denies rheumatic fever, and denies sexually transmitted diseases. Musculoskeletal: The patient NOTES back pain/injury, NOTES back problems, denies sciatica, NOTES knee/foot trouble, NOTES arthritis, or denies gout. PHYSICAL EXAMINATION: General: The patient is 36 year old female, well nourished, well hydrated in no acute distress. The patient is oriented to time, place, and person. VITALS: Blood pressure 104/60, pulse 66, height 157.5 cm (5' 2), weight 109 kg (240 lb 3.2 oz). Body mass index is 43.93 kg/m?. Head ? Normocephalic. EOM intact with sclera clear and no icterus noted. Wearing glasses. Mouth with mucus membranes moist. Neck - supple with no jugular venous distention noted. Trachea is midline. Lungs ? clear to auscultation. Normal breath sounds. No rales/rhonchi/wheezing noted. No labored breathing noted, such as retractions. Heart ? normal S1 and S2 auscultated. No rubs/clicks/murmurs noted. Regular rate. Abdomen ? soft and benign. Normal bowel sounds. Umbilical dimple - Knapp opening, Tender in the umbilical area but no peritoneal signs. Difficult to determine if any masses or organomegaly due to body habitus. Extremities ? no calf tenderness noted. Skin ? normal skin integrity. Neurological ? gait normal, no focal deficits noted Psych ? calm and appropriate Assessment IMPRESSION: umbilical hernia s/p Knapp procedure PLAN: I have discussed the above with the patient and her who is present with her. The patient has an umbilical hernia, which is due to the Knapp procedure. Her symptoms are seemingly out of proportion to physical examination findings. I have explained to her that the presence of the 'hernia' is due to the Knapp stoma and that this was created for her chronic constipation. She wishes to have the umbilical hernia repaired. I have explained that this will remove the Knapp stoma. Will refer patient to [facility] for second opinion. I have answered all questions to the patient?s satisfaction and the patient has no further questions. Greater than 50% of this patient encounter was dedicated to face to face discussion with the patient. Diagnoses: No diagnosis found. Fawn Coyne MD CNOV Observed: 10/05/2017 Status: COMPLETED Source: [place] 3:[address] [facility] REPOSITORY Office Visit (GENSWS) DEBBY BAILON ([id number]) 1980 F Date Time Provider Department 10/05/17 3:00 PM FAWN COYNE During your visit today, we recorded the following information about you: Pulse Blood pressure Weight Height 66/minute 104/60 109 kg 1.575 m Shanna Joy EVELIN 10/05/2017 3:22 PM Signed REVIEW OF SYSTEMS: General: The patient NOTES fatigue, denies weight loss, NOTES weight gain, NOTES feeling hot, and NOTES feelings of cold. Eyes: The patient denies glaucoma, denies eye injury/surgery, wears glasses or contacts. Ear/Nose/Throat: The patient denies allergies, denies hayfever, denies ear infections, and denies bloody noses. Cardiovascular: The patient denies chest pain, denies heart disease, denies high blood pressure,denies cardiac stent, denies prior heart attack, NOTES irregular heart beat, denies high cholesterol, NOTES poor circulation, denies heart failure, other cardiac issues, NOTES claudication, denies cold feet, denies peripheral arterial stent. Respiratory: The patient denies tuberculosis, denies pneumonia, denies frequent cough, denies pulmonary embolism, denies shortness of breath, and denies coughing up blood. Gastrointestinal: The patient denies difficulty swallowing, denies acid reflux, denies ulcers, denies vomiting, denies jaundice/hepatitis, denies gallbladder problems, denies black or tarry stools, denies hemorrhoids, NOTES bleeding from rectum, denies diverticulitis, NOTES constipation, denies diarrhea, denies loss of stool control, and NOTES hernias. Kidney/Bladder: The patient NOTES kidney stones, NOTES urine infections, and denies bloody urine. Skin: The patient denies a history of skin cancer, denies bleeding/changing moles, and denies a history of skin rash. Neurologic: The patient denies a history of epilepsy/convulsions, NOTES headaches, NOTES head/spinal injuries, and denies stroke/TIA. Psychiatric: The patient NOTES psychiatric medications, NOTES depression, and denies voices, denies substance abuse. Endocrine: The patient denies thyroid disorders, NOTES diabetes, and denies hormonal problems. Hematologic: The patient denies a history of bruising, denies bleeding, and denies anemia, denies blood clots. Infections: The patient denies a history of measles and mumps, denies rheumatic fever, and denies sexually transmitted diseases. Musculoskeletal: The patient NOTES back pain/injury, NOTES back problems, denies sciatica, NOTES knee/foot trouble, NOTES arthritis, or denies gout. When was patient's last Mammogram screening? 07/2017 Last Colonoscopy: NONE Shanna Joy LPN Fawn Coyne 10/06/2017 8:41 PM Signed Debby Bailon 1980 REFERRING PHYSICIAN: Mariana Cordero I, DO CHIEF COMPLAINT: Abdominal Pain HPI: The patient is a 36 year old female presents with complaint of abdominal pain for the past two months. Complaint of pain after eating, primarily in the periumbilical area. States that the periumbilical area would become rock hard and then pop out of the stomach. Sometimes feels like a heartbeat throbbing pain in the area. States that it hurst to sit and hurts to stand. The pain would last about half and hour and would occur every day. She states that sometimes she cannot even get out of bed. She states that she tries to eat, but when she eats she states that it kills me. Denies weight loss. She states that she has spina bifida and has chronic constipation for which she underwent Knapp procedure about 2 years ago. She had been using the Knapp stoma, up until several months ago, when rats chewed up what sounds like her equipment. Then she was prescribed miralax, then used enemas, but has return of her constipation, lasting for several days. She underwent evaluation with CT scan from an ED visit on 09/15/17. The CT scan reveals an umbilical hernia with loop of bowel (Knapp stoma) Patient was told that this was the source of all her complaints. PAST MEDICAL HISTORY Diagnosis Date - Abnormal sensation of left upper and lower extremity 08/07/2013 - Anxiety - Arthritis started age 19 - Cervical radiculopathy 05/02/2013 - Chronic pain 02/12/2015 - Depressive disorder, not elsewhere classified 11/28/2011 [facility] - DJD (degenerative joint disease), thoracic - Dysthymic disorder Depression (non-psychotic), sees BRIM SHAPER at [facility]. 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 Seeing Dr. Gregg - Numbness and tingling of left arm and leg 08/07/2013 - Panic attacks - Recurrent UTI 11/28/2011 - Spina bifida (HCC) 01/06/2016 - Type 2 diabetes mellitus without complication ([facility]) 02/12/2015 - Urinary tract infection, site not specified Recurrent UTI's - Weakness of left upper extremity 08/07/2013 PAST SURGICAL HISTORY Procedure Laterality Date - 2D ECHO (EXEP) 06/28/2017 EF=65%. nl - DANDC, DIAG AND/OR THERAPEUTIC Dilation AND curettage - PAST SURGICAL HISTORY OF cholecystectomy - PAST SURGICAL HISTORY OF 09/2012 back surgery x2 - PAST SURGICAL HISTORY OF Left AND 02/2014 foot x2 - PAST SURGICAL HISTORY OF 07/2015 Knapp stoma - STRESS TEST 07/18/2017 normal Current Outpatient Prescriptions: polyethylene glycol 3350 (MIRALAX) 17 gram/dose powder Take 17 g by mouth once daily. propranolol (INDERAL) 10 mg tablet Take 1 tablet by mouth twice daily. lancets (FREESTYLE LANCETS) 28 gauge misc Test blood sugar(s) 1-2 times daily. Dx: 250.0. Insulin: No DULoxetine (CYMBALTA) 30 mg capsule Take 1 capsule by mouth once daily. metFORMIN ER (GLUCOPHAGE XR) 500 mg 24 hr tablet Take 2 tablets by mouth twice daily. lisinopril 2.5 mg tablet Take 1 tablet by mouth once daily. oxybutynin ER (DITROPAN XL) 10 mg 24 hr tablet Take 1 tablet by mouth once daily. blood sugar diagnostic (FREESTYLE LITE STRIPS) test strip Test blood sugar(s) 1-2 times daily. Dx: 250.0. Insulin: No hydrOXYzine pamoate (VISTARIL) 25 mg capsule Take 1 capsule by mouth three times daily as needed. [facility] Blood-Glucose Meter (FREESTYLE LITE METER) monitoring kit Freestyle LITE Meter Kit - gabapentin (NEURONTIN) 300 mg capsule Take 1 capsule by mouth three times daily. ciprofloxacin HCl (CIPRO) 250 mg tablet Take 500 mg by mouth twice daily. zolpidem (AMBIEN) 5 mg tablet Take 1 tablet by mouth at bedtime as needed for Sedation for up to 60 days. 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 Social History Main Topics Smoking status: Never Smoker Smokeless tobacco: Never Used Alcohol use: No Drug use: No Sexual activity: Not Currently Partners with: Male control/protection: None FAMILY HISTORY Problem Relation Age of Onset - Arthritis Mother - Diabetes Mother - Heart Mother - Hypertension Mother - Lipids Mother - Stroke Mother - Thyroid Mother - Cancer Father Skin - Cancer Maternal Grandmother LIVER CANCER - Cancer Maternal Uncle Great Uncle - Cancer Maternal Uncle Great Uncle REVIEW OF SYSTEMS: General: The patient NOTES fatigue, denies weight loss, NOTES weight gain, NOTES feeling hot, and NOTES feelings of cold. Eyes: The patient denies glaucoma, denies eye injury/surgery, wears glasses or contacts. Ear/Nose/Throat: The patient denies allergies, denies hayfever, denies ear infections, and denies bloody noses. Cardiovascular: The patient denies chest pain, denies heart disease, denies high blood pressure,denies cardiac stent, denies prior heart attack, NOTES irregular heart beat, denies high cholesterol, NOTES poor circulation, denies heart failure, other cardiac issues, NOTES claudication, denies cold feet, denies peripheral arterial stent. Respiratory: The patient denies tuberculosis, denies pneumonia, denies frequent cough, denies pulmonary embolism, denies shortness of breath, and denies coughing up blood. Gastrointestinal: The patient denies difficulty swallowing, denies acid reflux, denies ulcers, denies vomiting, denies jaundice/hepatitis, denies gallbladder problems, denies black or tarry stools, denies hemorrhoids, NOTES bleeding from rectum, denies diverticulitis, NOTES constipation, denies diarrhea, denies loss of stool control, and NOTES hernias. Kidney/Bladder: The patient NOTES kidney stones, NOTES urine infections, and denies bloody urine. Skin: The patient denies a history of skin cancer, denies bleeding/changing moles, and denies a history of skin rash. Neurologic: The patient denies a history of epilepsy/convulsions, NOTES headaches, NOTES head/spinal injuries, and denies stroke/TIA. Psychiatric: The patient NOTES psychiatric medications, NOTES depression, and denies voices, denies substance abuse. Endocrine: The patient denies thyroid disorders, NOTES diabetes, and denies hormonal problems. Hematologic: The patient denies a history of bruising, denies bleeding, and denies anemia, denies blood clots. Infections: The patient denies a history of measles and mumps, denies rheumatic fever, and denies sexually transmitted diseases. Musculoskeletal: The patient NOTES back pain/injury, NOTES back problems, denies sciatica, NOTES knee/foot trouble, NOTES arthritis, or denies gout. PHYSICAL EXAMINATION: General: The patient is 36 year old female, well nourished, well hydrated in no acute distress. The patient is oriented to time, place, and person. VITALS: Blood pressure 104/60, pulse 66, height 157.5 cm (5' 2), weight 109 kg (240 lb 3.2 oz). Body mass index is 43.93 kg/m?. Head ? Normocephalic. EOM intact with sclera clear and no icterus noted. Wearing glasses. Mouth with mucus membranes moist. Neck - supple with no jugular venous distention noted. Trachea is midline. Lungs ? clear to auscultation. Normal breath sounds. No rales/rhonchi/wheezing noted. No labored breathing noted, such as retractions. Heart ? normal S1 and S2 auscultated. No rubs/clicks/murmurs noted. Regular rate. Abdomen ? soft and benign. Normal bowel sounds. Umbilical dimple - Knapp opening, Tender in the umbilical area but no peritoneal signs. Difficult to determine if any masses or organomegaly due to body habitus. Extremities ? no calf tenderness noted. Skin ? normal skin integrity. Neurological ? gait normal, no focal deficits noted Psych ? calm and appropriate Assessment IMPRESSION: umbilical hernia s/p Knapp procedure PLAN: I have discussed the above with the patient and her who is present with her. The patient has an umbilical hernia, which is due to the Knapp procedure. Her symptoms are seemingly out of proportion to physical examination findings. I have explained to her that the presence of the 'hernia' is due to the Knapp stoma and that this was created for her chronic constipation. She wishes to have the umbilical hernia repaired. I have explained that this will remove the Knapp stoma. Will refer patient to [facility] for second opinion. I have answered all questions to the patient?s satisfaction and the patient has no further questions. Greater than 50% of this patient encounter was dedicated to face to face discussion with the patient. Diagnoses: No diagnosis found. Fawn Coyne MD Referring Provider: MARIANA CORDERO I [[id number]] Allergies As of Date: 10/05/2017 Noted Allergy Reaction MRI CONTRAST (GADOLINIUM-CONTAINI*01/03/2017 8 - GI Upset MUSHROOM 06/10/2016 10 - Anaphylaxis PEANUTS 06/10/2016 10 - Anaphylaxis Date Reviewed: 10/05/2017 Reviewed by: Marycruz Leroy RN - Fully Assessed Reason for Visit: Abdominal Pain [1] Primary Visit Diagnosis:Generalized abdominal pain [R10.84] Other Visit Diagnoses:Difficulty managing care of stoma [Z91.19] Morbid obesity (HCC) [E66.01] Prescriptions as of 10/05/2017 Sig: POLYETHYLENE GLYCOL 3350 17 G* Take 17 g by mouth once daily. PROPRANOLOL 10 MG TABLET Take 1 tablet by mouth twice * LANCETS 28 GAUGE Test blood sugar(s) 1- 2 times* DULOXETINE 30 MG CAPSULE,SHERRY* Take 1 capsule by mouth once * METFORMIN ER 500 MG TABLET,EX* Take 2 tablets by mouth twice* LISINOPRIL 2.5 MG TABLET Take 1 tablet by mouth once d* OXYBUTYNIN CHLORIDE ER 10 MG * Take 1 tablet by mouth once d* BLOOD SUGAR DIAGNOSTIC STRIPS Test blood sugar(s) 1- 2 times* HYDROXYZINE PAMOATE 25 MG CAP* Take 1 capsule by mouth three* BLOOD-GLUCOSE METER KIT Freestyle LITE Meter Kit - GABAPENTIN 300 MG CAPSULE Take 1 capsule by mouth three* CIPROFLOXACIN 250 MG TABLET Take 500 mg by mouth twice da* ZOLPIDEM 5 MG TABLET Take 1 tablet by mouth at bed* COMPOUNDED PRESCRIPTION Promogran, use as directed, u* Patient not taking: Reported on 10/05/2017 Problem List As Of Date 10/05/2017 Noted Resolved Threatened , antepartum [O20.0] INVALID FOR*04/07/2011 Supervision of normal first [Z34.00] INVALID FOR*04/07/2011 Cyst of ovary [N83.209] INVALID FOR* Priority: C Depressive disorder, not elsewhere classified [*INVALID FOR*01/06/2016 Priority: A More... Anxiety [F41.9] INVALID FOR* Priority: A More... Recurrent UTI [N39.0] INVALID FOR* Priority: C Dysthymic disorder [F34.1] Priority: A More... Panic attacks [F41.0] Priority: A Neck pain [M54.2] INVALID FOR* Priority: M Cervical radiculopathy [M54.12] INVALID FOR* Priority: M Weakness of both upper extremities [R29.898] INVALID FOR* Priority: M More... Muscle weakness of lower extremity [M62.81] INVALID FOR* Priority: M More... 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 Morbid obesity ([facility]) [E66.01] INVALID FOR* Priority: B Chronic pain [G89.29] INVALID FOR* Priority: M Neurogenic bladder [N31.9] INVALID FOR* Priority: B Hydronephrosis, right [N13.30] INVALID FOR* Priority: C History of kidney stones [Z87.442] INVALID FOR* Priority: C Spina bifida ([facility]) [Q05.9] INVALID FOR* Priority: B Neurogenic bowel [K59.2] INVALID FOR* Priority: B Primary insomnia [F51.01] INVALID FOR* Priority: A Type 2 diabetes mellitus with proteinuria ([facility])*INVALID FOR* Priority: A Pyelonephritis [N12] INVALID FOR* Diabetic eye exam ([facility]) [Z01.00, E11.9] INVALID FOR* Priority: A More... 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 Ulcer of left foot (HCC) [L97.529] INVALID FOR* Priority: M Paroxysmal SVT (supraventricular tachycardia) (*INVALID FOR* Priority: A More... Visit Notes: >> Shanna Joy EVELIN [facility] October 05, 2017 3:21 PM Status: Signed REVIEW OF SYSTEMS: General: The patient NOTES fatigue, denies weight loss, NOTES weight gain, NOTES feeling hot, and NOTES feelings of cold. Eyes: The patient denies glaucoma, denies eye injury/surgery, wears glasses or contacts. Ear/Nose/Throat: The patient denies allergies, denies hayfever, denies ear infections, and denies bloody noses. Cardiovascular: The patient denies chest pain, denies heart disease, denies high blood pressure,denies cardiac stent, denies prior heart attack, NOTES irregular heart beat, denies high cholesterol, NOTES poor circulation, denies heart failure, other cardiac issues, NOTES claudication, denies cold feet, denies peripheral arterial stent. Respiratory: The patient denies tuberculosis, denies pneumonia, denies frequent cough, denies pulmonary embolism, denies shortness of breath, and denies coughing up blood. Gastrointestinal: The patient denies difficulty swallowing, denies acid reflux, denies ulcers, denies vomiting, denies jaundice/hepatitis, denies gallbladder problems, denies black or tarry stools, denies hemorrhoids, NOTES bleeding from rectum, denies diverticulitis, NOTES constipation, denies diarrhea, denies loss of stool control, and NOTES hernias. Kidney/Bladder: The patient NOTES kidney stones, NOTES urine infections, and denies bloody urine. Skin: The patient denies a history of skin cancer, denies bleeding/changing moles, and denies a history of skin rash. Neurologic: The patient denies a history of epilepsy/convulsions, NOTES headaches, NOTES head/spinal injuries, and denies stroke/TIA. Psychiatric: The patient NOTES psychiatric medications, NOTES depression, and denies voices, denies substance abuse. Endocrine: The patient denies thyroid disorders, NOTES diabetes, and denies hormonal problems. Hematologic: The patient denies a history of bruising, denies bleeding, and denies anemia, denies blood clots. Infections: The patient denies a history of measles and mumps, denies rheumatic fever, and denies sexually transmitted diseases. Musculoskeletal: The patient NOTES back pain/injury, NOTES back problems, denies sciatica, NOTES knee/foot trouble, NOTES arthritis, or denies gout. When was patient's last Mammogram screening? 07/2017 Last Colonoscopy: NONE Shanna Rufino PLAN MANAGER Letter Text Encounter Status:Closed by MD FAWN COYNE on 10/06/17 12 LEAD ELECTROCARDIOGRAM Observed: 09/18/2017 Status: F Source: PATRIOT 2:38 PM [facility] REPOSITORY [facility] Cardiovascular Services [address] [place] [address] 12 Lead EKG 09/15/17 1522 MR#: [id number] Acct: [id number] Name: DEBBY BAILON Rep #: [id number] : 1980 36 From: Jayson Alvarez MD Attending Dr: Status: DEP ER Ordering Dr: Arnold Caban DO Date: 09/15/17 Location: ED Sex: F C Admitted: Test Reason : ABD PAIN Blood Pressure : / mmHG Vent. Rate : 074 BPM Atrial Rate : 074 BPM P-R Int : 148 ms QRS Dur : 080 ms QT Int : 388 ms P-R-T Axes : 022 029 023 degrees QTc Int : 430 ms Normal sinus rhythm Normal ECG Confirmed by STEFANI FITZGERALD, JAYSON ([id number]), editorial specialist LYLA HAY ([id number]) on 09/18/2017 2:37:25 PM Referred By: Arnold Caban Confirmed By:JAYSON ALVAREZ MD 09/18/17 1437 Date Jayson Alvarez MD CC: Will Dietz MD; Arnold Caban Signed EMERGENCY DEPARTMENT Observed: 09/16/2017 Status: F Source: PATRIOT SUMMARY 1:12 AM [facility] REPOSITORY [facility] Medical Records Department [address] [place] [address] Emergency Department Summary 09/15/17 1512 MR#: [id number] Acct: [id number] Name: DEBBY BAILON Rep #: [id number] : 1980 36 From: Arnold Brice PCP: Will Dietz MD Status: REG ER - ER Visit Summary Date of Service: 09/15/17 Chief Complaint: Abdominal pain History of Present Illness: The patient is a 36 F intermittent generalized abdominal pain over the past 2 months. States seen twice in the ED a month ago. States she has 2 separate x-rays. First time told she was constipated. Was told to use MiraLAX. Return ended with vomiting. Again treated for symptoms told to continue constipation treatment. She states she has been in contact with her PCP and spoke to him 10 days ago. She states she cannot get an appointment to the end of September. She was told to go to [facility] for evaluation 10 days ago, however unable to get a ride up that way. She has history of constipation. 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 She had a colonoscopy prior by surgeon at that time. No history of EGD. Currently complains of abdominal pain no vomiting or diarrhea. Complains of nausea. States that urine urgency. Last menstrual period was earlier this month. Physical Examination: General: Alert and oriented 3, no acute distress HEENT: Normocephalic, atraumatic. Moist mucosa membranes Neck: supple, nontender. Cardiovascular: Regular rate and rhythm, no murmurs Respiratory: Normal breath sounds, symmetric, no distress Abdomen: Soft, generalized tenderness with no guarding or rebound, nondistended, normal bowel sounds Extremities: Nontender, no edema, pulses intact 4 Neuro: no focal neurological deficits. Test Results: White count 11.4. Hemoglobin 12.6. Creatinine 0.91. Lipase 118. Liver enzymes normal. UA negative. HCG negative. CT abdomen pelvis with oral and IV contrast notes neurogenic bladder with right hydroureter, umbilical hernia, non-strangulated or incarcerated. No obstruction. Emergency Department Course and Treatment: Patient reports 2 months of symptoms, seen twice in the ED with chest x-rays and no workup. Unable to get into her PCP. Workup initially in ED with contrast CT and labs. Labs normal. Contrast CT notes a neurogenic bladder with hydroureter, non-strangulated umbilical hernia. Patient history of spinal bifida. She states she has a known neurogenic bladder and has seen urology at [facility]. She reports that while she is able to urinate there is no issues. She will follow-up with them as needed. She has a umbilical hernia. She is nontender currently in that region. I reviewed records noted she had previous images with similar findings. She states she was not told about this in the past. Her gallbladder was removed reportedly by Dr. Drew. She is given follow-up with him outpatient reevaluation. Treatment Plan: [] Disposition: Discharge Impression: 1. Abdominal pain 2. Neurogenic bladder 3. Umbilical hernia This note was generated with EverTune dictation software. It may contain incorrect words, spelling, and punctuation that were not noted in review of the chart prior to signing ED Disposition - Plan for ED Patient: Disposition: Home or Assisted Living Chief Complaint: Abd Pain Diagnosis: Abdominal pain, Umbilical hernia, Neurogenic bladder Referrals: Will Dietz MD [Primary Care Provider] - What to do if you have Problems For any increased pain, shortness of breath, bleeding, nausea or vomiting, chest pain, or any unexpected problems, contact your Primary Care Provider. Call [facility] ([phone]) or report to the closest Emergency Room. Call 911 if necessary. 09/16/17 0112 <Electronically signed by Arnold Brice> Date Arnold Brice Cosigner Signature (If Indicated): Date CC: Will Dietz MD CBC W/DIFF, AUTOMATED Collected: 09/15/2017 Status: F Source: NORMA 6:05 PM [facility] REPOSITORY TYPE CODE TESTS RESULT OUT OF RANGE REFERENCE UNITS LAB L100.1000 4.4-11.0 K/mm3 High WBC 11.4 LAB L100.1200 4.2-5.4 M/mm3 Normal RBC 4.29 LAB L100.1300 12.0-15.0 g/dl Normal HGB 12.6 LAB L100.1400 37-47 % Normal HCT 38.8 LAB L100.1500 81-99 fL Normal MCV 90.4 LAB L100.1600 27.0-32.0 pg Normal MCH 29.4 LAB L100.1700 32-36 g/gl Normal MCHC 32.5 LAB L100.1810 11.6-14.6 % Normal RDW CV 14.2 LAB L100.1820 35.1-43.9 fl High RDW SD 46.5 LAB L100.1900 150-450 K/mm3 Normal PLT 208 LAB L100.2000 6.2-12.0 fl Normal MPV 10.2 LAB L100.2100 47-70 % Normal NEUT% 62.7 LAB L100.2200 19-41 % Normal LY% 26.3 LAB L100.2300 0-10 % Normal MONO% 8.0 LAB L100.2400 0-5 % Normal EO% 2.1 LAB L100.2500 0-1 % Normal BASO% 0.3 LAB L100.2550 0.0-0.9 % Normal IM GRAN % 0.600 Result Comment: IG% - Immature Granulocytes (promyelocytes, myelocytes and metamyelocytes) > 1% indicates that a LEFT SHIFT is Present. LAB L100.2620 2.0-7.7 X10 3/uL Normal Absolute Neut 7.2 LAB L100.2720 0.83-4.51 X10 3/ul Normal Absolute Lymph 3.01 Performed By: #### L100.0100 #### [facility] [address] [place], [place], [address] COMPREHENSIVE METABOLIC Collected: 09/15/2017 Status: F Source: [facility] 6:05 PM [facility] REPOSITORY TYPE CODE TESTS RESULT OUT OF RANGE REFERENCE UNITS LAB L501.0100 74-106 mg/dL High GLU 152 Result Comment: Fasting Glucose result greater than or equal to 126 mg/dL suggests DIABETES MELLITUS per A.D.A. criteria. Please note revised GLUCOSE reference range effective 2017. LAB L501.1000 7-18 mg/dL Normal BUN 12 LAB L501.1100 0.55-1.02 mg/dL Normal CREAT,SERUM 0.91 Result Comment: The validity of the calculated GFR AND GFRAA in patients over 70 years has not been determined. Clinical correlation is essential. LAB L501.1110 >60 mL/min Normal EST GFR 74 Result Comment: Non- GFR Calc LAB L501.1115 >60 mL/min Normal EST GFR - AA 90 Result Comment: GFR Calc LAB L501.1255 ml/min Normal Estimated CRCL 68.25 LAB L501.1300 10-20 RATIO Normal BUN/CRE 13.1 LAB L501.1500 6.4-8. g/dL Normal 2 T PROT 7.7 LAB L501.1800 3.2-5. g/dL Normal 0 ALB 3.5 LAB L501.1950 2.2-4. g/dL Normal 2 GLOB 4.2 LAB L501.2000 0.9-2. RATIO Low 4 A/G 0.8 LAB L501.2200 8.5-10 mg/dL Normal .1 CA 8.5 LAB L501.4100 15-37 U/L Normal AST 32 LAB L501.4305 45-117 U/L Normal ALK P 81 LAB L501.4405 13-56 U/L Normal ALT 53 LAB L501.4600 0.20-1 mg/dL Normal .00 T BILI 0.20 LAB L501.5300 136-14 mmol/L Normal 5 NA 138 LAB L501.5600 3.5-5. mmol/L Normal 1 K 4.0 LAB L501.5900 98-107 mmol/L Normal CL 106 LAB L501.6100 21.0-3 mmol/L Normal 2.0 CO2 27.0 LAB L501.6200 5-15 Normal GAP 5 Performed By: #### L500.4050, L501.2450 #### [facility] [address] [facility]. [place], [place], [id number] LIPASE Collected: 09/15/2017 Status: F Source: PAT[place]OT 6:05 PM [facility] REPOSITORY TYPE CODE TESTS RESULT OUT OF RANGE REFERENCE UNITS LAB L501.2450 73-393 U/L Normal LIPASE 115 Performed By: #### L500.4050, L501.2450 #### [facility] [address] [place], [place], [id number] URINALYSIS, COMPLETE Collected: 09/15/2017 Status: F Source: PAT[place]OT 3:55 PM [facility] REPOSITORY Order Comment: Order Date: 09/15/17 How was Urine Obtained? SUSTAINABILITY PROJECT COORDINATOR TO SPECIFY TYPE CODE TESTS RESULT OUT OF RANGE REFERENCE UNITS LAB L400.3000 Yellow COLOR Normal Yellow LAB L400.3050 Clear Normal CLARITY Clear LAB L400.3200 Normal mg/dl High GLUCOSE, UR 1000 LAB L400.3300 Negative mg/dL Normal BILIRUBIN URINE Negative LAB L400.3400 Negative mg/dl Normal KETONE UR Negative LAB L400.3465 1.002-1.030 Normal SP.GR. DIPSTX 1.015 LAB L400.3550 5.0 - 8.0 pH UR Normal 6.0 LAB L400.3600 Negative mg/dl High PROT 15 DIPSTX LAB L400.3700 Normal mg/dl Normal UROBILI Normal LAB L400.3750 Negative Normal NITRITE UR Negative LAB L400.3780 Negative /ul Normal OCCULT BLOOD-UR Negative LAB L400.3800 Negative /ul LEUK Normal ESTERASE Negative LAB L400.4050 0-5 /hpf WBC 0 Normal SEEN LAB L400.4100 0-5 /hpf 0 Normal RBC-UA SEEN LAB L400.4150 5-10 /hpf SQUAM Normal EPI 0-5 SEEN LAB L400.4300 None Seen /hpf 0 Normal BACTERIA SEEN LAB L400.4350 <or=2+ /hpf 0 Normal MUCUS, URINE SEEN Performed By: #### L400.0001 #### [facility] [address] [place], [address] ,URINE Collected: 09/15/2017 Status: F Source: [place] 3:55 PM [facility] REPOSITORY Order Comment: Order Date: 09/15/17 TYPE CODE TESTS RESULT OUT OF REFERENCE UNITS RANGE LAB L400.8000 Negative Normal HCGUQUAL Negative Result Comment: Very dilute urine specimens, as indicated by a low specific gravity, may not contain sales and marketing representative levels of hCG. If is still suspected, a first morning urine specimen should be collected 48 hours later and tested. Performed By: #### L400.7600 #### [facility] [address] [place], [place], [id number] ABDOMEN/PELVIS WITH Observed: 09/15/2017 Status: F Source: [place] CONTRAST 3:12 PM [facility] REPOSITORY [facility] Imaging [place] [address] Abdomen/Pelvis WITH Contrast MR#: [id number] Acct: [id number] Name: DEBBY BAILON Rep #: [id number] : 1980 F 36 From: Lyla Xavier MD PCP: Will Dietz MD Status: REG ER Study: Abdomen/Pelvis WITH Contrast Date of Exam: 09/15/17 Exam# [id number] Ordering Dr: Arnold Caban DO CT Abdomen And Pelvis W/ Contrast INDICATION: ABD PAIN RADIATING INTO BACK, BLOATING, ABNORMAL BM X 2 MONTHSHX SPINAL BIFDA, CHOLECYSTECTOMY, KNAPP SOTMA, KS, NEUROGENIC BLADDER, KNOWN HERNIA COMPARISON: June 2016 TECHNIQUE: Axial CT imaging of the abdomen and pelvis with oral and intravenous contrast. Coronal and sagittal reformatted images. Radiation dose optimization technique applied. 100 mL of Isovue-300 were given intravenously. FINDINGS: Visualized lung bases are clear. The heart size is normal. The liver is diffusely low in density suggestive of fatty infiltration. Liver measures 20 cm in craniocaudal dimension. Gallbladder is not visualized, may be contracted or surgically absent. Spleen, adrenal glands, and pancreas are unremarkable. The kidneys demonstrate normal size and cortical enhancement on the left, some cortical thinning and cortical irregularities on the right. Right kidney demonstrates moderate chronic appearing hydronephrosis of the right ureter is dilated. Left ureter appears normal in caliber. Bowel loops are nondistended. Oral contrast material advances regularly throughout the small bowel loops. An umbilical hernia with a small bowel loop is again noted, nonobstructed. Findings of repaired spina bifida again noted and mildly distended urinary bladder. CT/Abdomen/Pelvis WITH Contrast IMPRESSION: Findings compatible with repaired spina bifida. Findings compatible with neurogenic bladder, which is mildly distended, and chronic-appearing distention of the right ureter and moderate right hydronephrosis with cortical renal thinning. Ureteral distention is new compared to June 2016. Stable nonobstructed umbilical hernia containing a loop of small bowel. Questionable fatty infiltration of the liver with prominent liver size. at 1931 Reported and signed by: Lyla Xavier MD Electronically Signed: Lyla Xavier MD at 19:29 EDT Tel , Service support , CC: Will Dietz MD; Arnold Caban Paper Rewinder Operator: Signed PROGRESS Observed: 09/12/2017 Status: COMPLETED Source: [place] 10:[address] [facility] REPOSITORY HNO ID: [id number] Author: Kevin Osorio Service: (none) Author Type: Physician Type: Progress Notes Filed: 09/12/2017 10:24 AM Note Text: Please see ultrasound report for details of this visit. Kevin Osorio M.D. EMERGENCY DEPARTMENT Observed: 08/26/2017 Status: F Source: [facility] 4:17 PM [facility] REPOSITORY [facility] Medical Records Department [address] [place] [address] Emergency Department Summary 08/22/17 2256 MR#: [id number] Acct: [id number] Name: DEBBY BAILON Rep #: [id number] : 1980 36 From: Nemesio Sanderson DO PCP: Will Dietz MD Status: DEP ER - ER Visit Summary Date of Service: 08/22/17 Chief Complaint: Vomiting poop History of Present Illness: The patient is a 36 F states that she is vomiting poop. She states that she is knows that she is vomiting food because it tastes like it. She states that years ago she had a surgery that put her appendix on her colon. She states that she can irrigate her bowels this way due to chronic constipation. She was seen recently for constipation and thought she was doing better until tonight when she began to vomit. She has no vomiting medicine at home. Physical Examination: Afebrile vital signs are stable Gen: Well-nourished well-developed Head: Normocephalic atraumatic Eyes: Perrl EOMI ENT: TMs clear no rhinorrhea moist mucous membranes Neck: Supple no lymphadenopathy no JVD nontender CVS: Regular rate rhythm no murmurs normal S1-S2 Respiratory: No distress clear to auscultation bilaterally chest nontender Abdomen: Soft patient reports diffuse tenderness but the abdomen is soft and no guarding or rebound nondistended normal bowel sounds no masses Back: Nontender Extremity: Nontender no edema Skin: Normal color no rash Neuro: alert orientated 3 CN II-XII intact normal strength sensation reflexes gait cerebellar Psych: Normal affect normal mood Test Results: Acute abdominal series shows a large amount of stool but no bowel obstruction Emergency Department Course and Treatment: Patient was advised she may benefit from an enema and that she could do this at home. I will give her some Phenergan. Impression: 1. Vomiting 2. Chronic constipation This note was generated with EverTune dictation software. It may contain incorrect words, spelling, and punctuation that were not noted in review of the chart prior to signing ED Disposition - Plan for ED Patient: Disposition: Home or Assisted Living Chief Complaint: Constipation Instructions: ED Nausea Vomiting Prescriptions: proMETHazine tablet [Phenergan] 25 mg PO Q6H PRN PRN #10 tab PRN Reason: Nausea Referrals: Will Dietz MD [Primary Care Provider] - 1-2 Days if not improving What to do if you have Problems For any increased pain, shortness of breath, bleeding, nausea or vomiting, chest pain, or any unexpected problems, contact your Primary Care Provider. Call [facility] ([phone]) or report to the closest Emergency Room. Call 911 if necessary. 08/26/17 1617 <Electronically signed by Nemesio Sanderson DO> Date Nemesio Sanderson DO Cosigner Signature (If Indicated): Date CC: Will Dietz MD ACUTE ABDOMEN INC Observed: 08/22/2017 Status: F Source: [place] CHEST 10:38 PM [facility] REPOSITORY [facility] Imaging Services [address] [place], [place] [address] [address] Acute Abdomen Inc Chest MR#: [id number] Acct: [id number] Name: DEBBY BAILON Rep #: [id number] : 1980 F 36 From: Ki Ballesteros MD PCP: Will Dietz MD Status: REG ER Study: Acute Abdomen Inc Chest Date of Exam: 08/22/17 Exam# [id number] Ordering Dr: Nemesio Sanderson DO STUDY: X-RAY - ACUTE ABDOMINAL SERIES REASON FOR EXAM: Female, 36 years old. Vomiting and constipation TECHNIQUE: Single view of the chest. Supine, and erect view(s) of the abdomen were obtained. COMPARISON: Radiographs 07/25/2017, CT scan 06/29/2016 FINDINGS: Normal lung volumes. There is a 1.7 cm density overlying the anterior right second rib which was also present previously but not mentioned. Recommend further evaluation with CT scan. Normal size heart. Normal mediastinum and cristiano. Normal visualized pulmonary arteries. Normal visualized aortic arch and descending thoracic aorta. There is a non-specific bowel gas pattern. The soft tissue structures of the abdomen and pelvis are unremarkable. Previous long segment lumbar laminectomy. Calcifications overlying the right lower quadrant and left midabdomen are in the dorsal subcutaneous tissues on CT scan. RAD/Acute Abdomen Inc Chest IMPRESSION: No definite acute abnormality in the abdomen or pelvis. 1.7 cm nodular density in the right upper lobe, CT scan recommended. Electronically Signed: Ki Ballesteros MD at 23:09 EDT , Service support , CC: Nemesio Sanderson DO; Will Dietz MD Paper Rewinder Operator: Signed PROGRESS Observed: 08/12/2017 Status: COMPLETED Source: [place] 9:14 PM [facility] REPOSITORY HNO ID: [id number] Author: Gavin Gomez Service: (none) Author Type: Physician Type: Progress Notes Filed: 08/12/2017 9:34 PM Note Text: Follow up podiatric office visit for: Chief Complaint: This 36 year old who presents for follow up:ulceration of left 1st metatarsal. Patient has been wearing surgial shoe. She did have mri. She feels ulceration is now healed. She denies any n/v/f/c. She has no other issues. PAIN EVALUATION No data found. Hemoglobin A1C Date Value Ref Range Status 06/02/2017 8.1 (H) 4.3 - 5.6 % Final PCP: Will Dietz MD PAST MEDICAL HISTORY Diagnosis Date - Abnormal sensation of left upper and lower extremity 08/07/2013 - Anxiety - Arthritis started age 19 - Cervical radiculopathy 05/02/2013 - Chronic pain 02/12/2015 - Depressive disorder, not elsewhere classified 11/28/2011 [facility] - DJD (degenerative joint disease), thoracic - Dysthymic disorder Depression (non-psychotic), sees BRIM SHAPER at [facility]. 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 Seeing Dr. Gregg - Numbness and tingling of left arm and leg 08/07/2013 - Panic attacks - Recurrent UTI 11/28/2011 - Spina bifida (HCC) 01/06/2016 - Type 2 diabetes mellitus without complication ([facility]) 02/12/2015 - Urinary tract infection, site not specified Recurrent UTI's - Weakness of left upper extremity 08/07/2013 Current Outpatient Prescriptions: ciprofloxacin HCl (CIPRO) 250 mg tablet Take 500 mg by mouth twice daily. propranolol (INDERAL) 10 mg tablet Take 1 tablet by mouth twice daily. lancets (FREESTYLE LANCETS) 28 gauge misc Test blood sugar(s) 1-2 times daily. Dx: 250.0. Insulin: No DULoxetine (CYMBALTA) 30 mg capsule Take 1 capsule by mouth once daily. metFORMIN ER (GLUCOPHAGE XR) 500 mg 24 hr tablet Take 2 tablets by mouth twice daily. zolpidem (AMBIEN) 5 mg tablet Take 1 tablet by mouth at bedtime as needed for Sedation for up to 60 days. [facility] COMPOUNDED PRESCRIPTION Promogran, use as directed, ulcer of left 1st metatarsal, measurement: [id number], Dx: E11.621, L97.522 lisinopril 2.5 mg tablet Take 1 tablet by mouth once daily. oxybutynin ER (DITROPAN XL) 10 mg 24 hr tablet Take 1 tablet by mouth once daily. blood sugar diagnostic (FREESTYLE LITE STRIPS) test strip Test blood sugar(s) 1-2 times daily. Dx: 250.0. Insulin: No hydrOXYzine pamoate (VISTARIL) 25 mg capsule Take 1 capsule by mouth three times daily as needed. [facility] Blood-Glucose Meter (FREESTYLE LITE METER) monitoring kit Freestyle LITE Meter Kit - gabapentin (NEURONTIN) 300 mg capsule Take 1 capsule by mouth three times daily. No current facility-administered medications for this visit. ALLERGIES Allergen Reactions - Mri Contrast [Gadol* GI Upset - Mushroom Anaphylaxis - Peanuts Anaphylaxis PAST SURGICAL HISTORY Procedure Laterality Date - 2D ECHO (EXEP) 06/28/2017 EF=65%. nl - DANDC, DIAG AND/OR THERAPEUTIC Dilation AND curettage - PAST SURGICAL HISTORY OF cholecystectomy - PAST SURGICAL HISTORY OF 09/2012 back surgery x2 - PAST SURGICAL HISTORY OF Left AND 02/2014 foot x2 - PAST SURGICAL HISTORY OF 07/2015 Knapp stoma - STRESS TEST 07/18/2017 normal Physical Exam: Constitutional: Pt is a well developed 36 year old female who is alert, oriented, cooperative and in no apparent distress. OBJECTIVE: NVSI unchanged from previous visit. Dermatological: Nails 1-5 b/l are normal. Webspaces clean and dry 1-4 b/l. Skin appears well hydrated and supple. good color, texture, turgor. No open lesions present. Callus present to left 1st metatarsal. No ulceration present to left foot. No local signs of infection. Musculoskeletal/Orthopaedic: Patient has no pain to palpation of left foot Mri of left foot reviewed. No abscess or osteomyelitis. ASSESSMENT: (L97.522) Ulcer of toe of left foot, with fat layer exposed (HCC) (primary encounter diagnosis) (E11.49) Other diabetic neurological complication associated with type 2 diabetes mellitus (HCC) PLAN: 1. History and physical examination completed today. 2. Patient was examined and informed of current findings 3. Discussed ulceration of left foot. It is now healed and More callus. Callus was debrided with 15 blade and sanding disk. She is to continue with lotion. She is to continue with surgical shoe until she gets more suitable shoes. Diabetic shoes were again prescribed and recommended. 4. F/u in 3-4 weeks or sooner if problems develop Gavin Gomez DPM CNOV Observed: 08/11/2017 Status: COMPLETED Source: [place] 2:[address] [facility] REPOSITORY Office Visit (PODIWS) DEBBY BAILON ([id number]) 1980 F Date Time Provider Department 08/11/17 2:10 PM GAVIN GOMEZ During your visit today, we recorded the following information about you: Brittney Cook RN 08/11/2017 3:06 PM Signed Schedule with [employer] for diabetic shoes [facility] [employer] [address], [facility] [address] PH: [phone] Gavin Gomez DPM 08/12/2017 9:34 PM Signed Follow up podiatric office visit for: Chief Complaint: This 36 year old who presents for follow up:ulceration of left 1st metatarsal. Patient has been wearing surgial shoe. She did have mri. She feels ulceration is now healed. She denies any n/v/f/c. She has no other issues. PAIN EVALUATION No data found. Hemoglobin A1C Date Value Ref Range Status 06/02/2017 8.1 (H) 4.3 - 5.6 % Final PCP: Will Dietz MD PAST MEDICAL HISTORY Diagnosis Date - Abnormal sensation of left upper and lower extremity 08/07/2013 - Anxiety - Arthritis started age 19 - Cervical radiculopathy 05/02/2013 - Chronic pain 02/12/2015 - Depressive disorder, not elsewhere classified 11/28/2011 [facility] - DJD (degenerative joint disease), thoracic - Dysthymic disorder Depression (non-psychotic), sees BRIM SHAPER at [facility]. 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 Seeing Dr. Gregg - Numbness and tingling of left arm and leg 08/07/2013 - Panic attacks - Recurrent UTI 11/28/2011 - Spina bifida ([facility]) 01/06/2016 - Type 2 diabetes mellitus without complication ([facility]) 02/12/2015 - Urinary tract infection, site not specified Recurrent UTI's - Weakness of left upper extremity 08/07/2013 Current Outpatient Prescriptions: ciprofloxacin HCl (CIPRO) 250 mg tablet Take 500 mg by mouth twice daily. propranolol (INDERAL) 10 mg tablet Take 1 tablet by mouth twice daily. lancets (FREESTYLE LANCETS) 28 gauge misc Test blood sugar(s) 1-2 times daily. Dx: 250.0. Insulin: No DULoxetine (CYMBALTA) 30 mg capsule Take 1 capsule by mouth once daily. metFORMIN ER (GLUCOPHAGE XR) 500 mg 24 hr tablet Take 2 tablets by mouth twice daily. zolpidem (AMBIEN) 5 mg tablet Take 1 tablet by mouth at bedtime as needed for Sedation for up to 60 days. [facility] COMPOUNDED PRESCRIPTION Promogran, use as directed, ulcer of left 1st metatarsal, measurement: [id number], Dx: E11.621, L97.522 lisinopril 2.5 mg tablet Take 1 tablet by mouth once daily. oxybutynin ER (DITROPAN XL) 10 mg 24 hr tablet Take 1 tablet by mouth once daily. blood sugar diagnostic (FREESTYLE LITE STRIPS) test strip Test blood sugar(s) 1-2 times daily. Dx: 250.0. Insulin: No hydrOXYzine pamoate (VISTARIL) 25 mg capsule Take 1 capsule by mouth three times daily as needed. [facility] Blood-Glucose Meter (FREESTYLE LITE METER) monitoring kit Freestyle LITE Meter Kit - gabapentin (NEURONTIN) 300 mg capsule Take 1 capsule by mouth three times daily. No current facility-administered medications for this visit. ALLERGIES Allergen Reactions - Mri Contrast [Gadol* GI Upset - Mushroom Anaphylaxis - Peanuts Anaphylaxis PAST SURGICAL HISTORY Procedure Laterality Date - 2D ECHO (EXEP) 06/28/2017 EF=65%. nl - DANDamp;C, DIAG AND/OR THERAPEUTIC Dilation ANDamp; curettage - PAST SURGICAL HISTORY OF cholecystectomy - PAST SURGICAL HISTORY OF 09/2012 back surgery x2 - PAST SURGICAL HISTORY OF Left 9 ANDamp; 02/2014 foot x2 - PAST SURGICAL HISTORY OF 07/2015 Knapp stoma - STRESS TEST 07/18/2017 normal Physical Exam: Constitutional: Pt is a well developed 36 year old female who is alert, oriented, cooperative and in no apparent distress. OBJECTIVE: NVSI unchanged from previous visit. Dermatological: Nails 1-5 b/l are normal. Webspaces clean and dry 1-4 b/l. Skin appears well hydrated and supple. good color, texture, turgor. No open lesions present. Callus present to left 1st metatarsal. No ulceration present to left foot. No local signs of infection. Musculoskeletal/Orthopaedic: Patient has no pain to palpation of left foot Mri of left foot reviewed. No abscess or osteomyelitis. ASSESSMENT: (L97.522) Ulcer of toe of left foot, with fat layer exposed (HCC) (primary encounter diagnosis) (E11.49) Other diabetic neurological complication associated with type 2 diabetes mellitus (HCC) PLAN: 1. History and physical examination completed today. 2. Patient was examined and informed of current findings 3. Discussed ulceration of left foot. It is now healed and More callus. Callus was debrided with 15 blade and sanding disk. She is to continue with lotion. She is to continue with surgical shoe until she gets more suitable shoes. Diabetic shoes were again prescribed and recommended. 4. F/u in 3-4 weeks or sooner if problems develop Gavin Gomez DPM Referring Provider: GAVIN GOMEZ [[id number]] Allergies As of Date: 08/11/2017 Noted Allergy Reaction MRI CONTRAST (GADOLINIUM-CONTAINI*01/03/2017 8 - GI Upset MUSHROOM 06/10/2016 10 - Anaphylaxis PEANUTS 06/10/2016 10 - Anaphylaxis Date Reviewed: 08/11/2017 Reviewed by: Maranda Echeverria Ma - Fully Assessed Reason for Visit: Follow Up [171] Primary Visit Diagnosis:Ulcer of toe of left foot, with fat layer exposed (HCC) [L97.522] Other Visit Diagnosis:Other diabetic neurological complication associated with type 2 diabetes mellitus (HCC) [E11.49] Order(s):DIAB SHOE FOR DENSITY INSERT [[id number]] Order #: [id number] Prescriptions as of 08/11/2017 Sig: CIPROFLOXACIN 250 MG TABLET Take 500 mg by mouth twice da* PROPRANOLOL 10 MG TABLET Take 1 tablet by mouth twice * LANCETS 28 GAUGE Test blood sugar(s) 1- 2 times* DULOXETINE 30 MG CAPSULE,SHERRY* Take 1 capsule by mouth once * METFORMIN ER 500 MG TABLET,EX* Take 2 tablets by mouth twice* ZOLPIDEM 5 MG TABLET Take 1 tablet by mouth at bed* COMPOUNDED PRESCRIPTION Promogran, use as directed, u* LISINOPRIL 2.5 MG TABLET Take 1 tablet by mouth once d* OXYBUTYNIN CHLORIDE ER 10 MG * Take 1 tablet by mouth once d* BLOOD SUGAR DIAGNOSTIC STRIPS Test blood sugar(s) 1- 2 times* HYDROXYZINE PAMOATE 25 MG CAP* Take 1 capsule by mouth three* BLOOD-GLUCOSE METER KIT Freestyle LITE Meter Kit - GABAPENTIN 300 MG CAPSULE Take 1 capsule by mouth three* Problem List As Of Date 08/11/2017 Noted Resolved Threatened , antepartum [O20.0] INVALID FOR*04/07/2011 Supervision of normal first [Z34.00] INVALID FOR*04/07/2011 Cyst of ovary [N83.209] INVALID FOR* Priority: C Depressive disorder, not elsewhere classified [*INVALID FOR*01/06/2016 Priority: A More... Anxiety [F41.9] INVALID FOR* Priority: A More... Recurrent UTI [N39.0] INVALID FOR* Priority: C Dysthymic disorder [F34.1] Priority: A More... Panic attacks [F41.0] Priority: A Neck pain [M54.2] INVALID FOR* Priority: M Cervical radiculopathy [M54.12] INVALID FOR* Priority: M Weakness of both upper extremities [R29.898] INVALID FOR* Priority: M More... Muscle weakness of lower extremity [M62.81] INVALID FOR* Priority: M More... 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 Morbid obesity ([facility]) [E66.01] INVALID FOR* Priority: B Chronic pain [G89.29] INVALID FOR* Priority: M Neurogenic bladder [N31.9] INVALID FOR* Priority: B Hydronephrosis, right [N13.30] INVALID FOR* Priority: C History of kidney stones [Z87.442] INVALID FOR* Priority: C Spina bifida ([facility]) [Q05.9] INVALID FOR* Priority: B Neurogenic bowel [K59.2] INVALID FOR* Priority: B Primary insomnia [F51.01] INVALID FOR* Priority: A Type 2 diabetes mellitus with proteinuria ([facility])*INVALID FOR* Priority: A Pyelonephritis [N12] INVALID FOR* Diabetic eye exam ([facility]) [E11.9, Z01.00] INVALID FOR* Priority: A More... Migraine without aura and without status migrai*INVALID FOR* Priority: A Type 2 diabetes mellitus with albuminuria ([facility])*INVALID FOR* Priority: A Well adult exam [Z00.00] INVALID FOR* Priority: E More... Ulcer of left foot ([facility]) [L97.529] INVALID FOR* Priority: M Paroxysmal SVT (supraventricular tachycardia) (*INVALID FOR* Priority: A More... Other instructions from your clinician: Schedule with [employer] for diabetic shoes [employer] [place] [address], [place] [address] PH: [phone] Encounter Status:Closed by GAVIN GOMEZ DPM on 08/12/17 PROGRESS Observed: 08/08/2017 Status: COMPLETED Source: [place] 2:[address] [facility] REPOSITORY HNO ID: [id number] Author: Naty Sharma Psr Service: (none) Author Type: (none) Type: Progress Notes Filed: 08/08/2017 2:35 PM Note Text: pap logged, letter sent. Naty Sharma Psr PROGRESS Observed: 08/04/2017 Status: COMPLETED Source: [place] 11:[address] [facility] REPOSITORY HNO ID: [id number] Author: Arielle Holcomb Rt Service: (none) Author Type: (none) Type: Progress Notes Filed: 08/04/2017 11:51 AM Note Text: Radiology Service Progress Note PATIENT NAME: Debby Bailon DATE OF SERVICE: August 04, 2017 TIME: 11:50 AM PATIENT IDENTITY VERIFICATION COMPLETED USING TWO (2) METHODS: Patient confirmed name verbally and Date of . PATIENT GENDER DATA: Female. status: : No status: NO. PATIENT RELEVANT IMPLANT DATA REVIEWED: Yes RADIOLOGY DEPARTMENT: MR; Exam(s) Completed: Lower MSK: Forefoot/Midfoot, left PERIPHERAL IV DATA: Not applicable SIGNED BY: Arielle Holcomb Rt August 04, 2017 11:50 AM MRI FOOT/TOES WO IVCON Observed: 08/04/2017 Status: F Source: [facility] 11:[address] [facility] REPOSITORY * * *Final Report* * * DATE OF EXAM: Aug 04 2017 11:50AM [facility] 0194 - MRI FOOT/TOES WO IVCON LT / PROCEDURE REASON: multiple diagnoses * * * * Physician Interpretation * * * * MRI LEFT FOOT WITHOUT CONTRAST INDICATION: Patient with ulcer of left foot with elevated inflammatory markers. Rule out osteomyelitis of left foot first metatarsal. Ulcer on big toe. .. COMPARISON: None. TECHNIQUE: Multiplanar PD, T1 and T2 weighted images. RESULT: There is a focal soft tissue defect along the plantar aspect of the first toe at the level of the MTP joint compatible with ulceration. There is underlying marrow signal in the first metatarsal head and tibial hallux sesamoid is normal in T1 and T2-weighted images. There is no evidence of osteomyelitis. There is no evidence of a fluid collection in the overlying soft tissues to suggest an abscess. Remote postsurgical changes are noted in the fifth metatarsal. The marrow signal elsewhere in the visualized forefoot is otherwise normal. The soft tissues elsewhere are also normal. IMPRESSION: 1. SOFT TISSUE ULCER IN THE PLANTAR ASPECT OF THE FIRST MTP JOINT WITHOUT UNDERLYING EVIDENCE OF OSTEOMYELITIS OR ABSCESS. Paper Rewinder Operator: JACI Transcribe Date/Time: Aug 04 2017 12:08P Dictated by : RAMON ANDERSON MD This examination was interpreted and the report reviewed and electronically signed by: RAMON ANDERSON MD on Aug 04 2017 12:14PM EST [id number] CBC AND DIFFERENTIAL Collected: 08/04/2017 Status: F Source: [place] 10:[address] [facility] REPOSITORY TYPE CODE TESTS RESULT OUT OF REFERENCE UNITS RANGE LAB WBC 3.70-11.00 k/uL WBC High 11.40 LAB RBC 3.90-5.20 m/uL RBC 4.32 LAB HGB 11.5-15.5 g/dL Hemoglobin 12.8 LAB HCT 36.0-46.0 % Hematocrit 39.6 LAB MCV 80.0-100.0 fL MCV 91.7 LAB MCH 26.0-34.0 pG MCH 29.6 LAB MCHC 30.5-36.0 g/dL MCHC 32.3 LAB RDWCV 11.5-15.0 % RDW-CV 13.7 LAB PLTCT 150-400 k/uL Platelet Count 252 LAB MPV 9.0-12.7 fL MPV 11.6 LAB ANEUT % Neut% 61.8 LAB AANEUT 1.45-7.50 k/uL Abs Neut 7.04 LAB ALYMP % Lymph% 24.6 LAB AALYMP 1.00-4.00 k/uL Abs Lymph 2.81 LAB AMONO % Bradley% 9.0 LAB AAMONO <0.87 k/uL Abs Bradley High 1.03 LAB AEOS % Eosin% 3.8 LAB AAEOS <0.46 k/uL Abs Eosin 0.43 LAB ABASO % Baso% 0.8 LAB AABASO <0.11 k/uL Abs Baso 0.09 LAB AUNRBC 0 /100 WBC NRBCs 0.0 LAB ABNRBC <0.01 k/uL Absolute nRBC <0.01 LAB DTYP DTYPE Auto Diff Performed By: #### CBCDIF, WSR, CRP #### [facility] [address] [place] [address] SED RATE WESTERGREN Collected: 08/04/2017 Status: F Source: [place] 10:[address] [facility] REPOSITORY TYPE CODE TESTS RESULT OUT OF REFERENCE UNITS RANGE LAB WSR 0-20 mm/hr Sed Rate High [place] 27 Performed By: #### CBCDIF, WSR, CRP #### [facility] [address] [place] [address] C-REACTIVE PROTEIN Collected: 08/04/2017 Status: F Source: [place] 10:[address] [facility] REPOSITORY TYPE CODE TESTS RESULT OUT OF REFERENCE UNITS RANGE LAB CRP <0.9 mg/dL C-Reactive 0.6 Protein Performed By: #### CBCDIF, WSR, CRP #### [facility] [address] [place] [address] PROGRESS Observed: 08/02/2017 Status: COMPLETED Source: [place] 10:[address] [facility] REPOSITORY HNO ID: [id number] Author: Gavin Gomez Service: (none) Author Type: Physician Type: Progress Notes Filed: 08/02/2017 10:29 AM Note Text: Follow up podiatric office visit for: Chief Complaint: This 36 year old who presents for follow up ulceration of left foot. Patient states that her wound is improving. She denies any redness to her foot. She denies any drainage. She denies any pain. She does report that she has had a yeast infection for the past few weeks. She has recently been prescribed medication but she has yet to get this yet. She denies n/v/f/c. She has no other complaints. PAIN EVALUATION No data found. Hemoglobin A1C Date Value Ref Range Status 06/02/2017 8.1 (H) 4.3 - 5.6 % Final PCP: Will Dietz MD PAST MEDICAL HISTORY Diagnosis Date - Abnormal sensation of left upper and lower extremity 08/07/2013 - Anxiety - Arthritis started age 19 - Cervical radiculopathy 05/02/2013 - Chronic pain 02/12/2015 - Depressive disorder, not elsewhere classified 11/28/2011 [facility] - DJD (degenerative joint disease), thoracic - Dysthymic disorder Depression (non-psychotic), sees BRIM SHAPER at [facility]. 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 - Lumbago 02/12/2015 - Migraine - Miscarriage - Morbid obesity ([facility]) 02/12/2015 - Muscle weakness of left lower extremity 08/07/2013 - Neck pain 05/02/2013 - Neurogenic bladder 02/12/2015 - Neurogenic bladder - Neurogenic bowel 01/06/2016 - Neuropathy ([facility]) 02/12/2015 post back surgery with secondary infection. Seeing Dr. Gregg - Numbness and tingling of left arm and leg 08/07/2013 - Panic attacks - Recurrent UTI 11/28/2011 - Spina bifida ([facility]) 01/06/2016 - Type 2 diabetes mellitus without complication ([facility]) 02/12/2015 - Urinary tract infection, site not specified Recurrent UTI's - Weakness of left upper extremity 08/07/2013 Current Outpatient Prescriptions: metroNIDAZOLE (FLAGYL) 500 mg tablet Take 1 tablet by mouth twice daily for 7 days. ciprofloxacin HCl (CIPRO) 250 mg tablet Take 500 mg by mouth twice daily. propranolol (INDERAL) 10 mg tablet Take 1 tablet by mouth twice daily. lancets (FREESTYLE LANCETS) 28 gauge misc Test blood sugar(s) 1-2 times daily. Dx: 250.0. Insulin: No DULoxetine (CYMBALTA) 30 mg capsule Take 1 capsule by mouth once daily. metFORMIN ER (GLUCOPHAGE XR) 500 mg 24 hr tablet Take 2 tablets by mouth twice daily. zolpidem (AMBIEN) 5 mg tablet Take 1 tablet by mouth at bedtime as needed for Sedation for up to 60 days. [facility] COMPOUNDED PRESCRIPTION Promogran, use as directed, ulcer of left 1st metatarsal, measurement: [id number], Dx: E11.621, L97.522 lisinopril 2.5 mg tablet Take 1 tablet by mouth once daily. oxybutynin ER (DITROPAN XL) 10 mg 24 hr tablet Take 1 tablet by mouth once daily. blood sugar diagnostic (FREESTYLE LITE STRIPS) test strip Test blood sugar(s) 1-2 times daily. Dx: 250.0. Insulin: No hydrOXYzine pamoate (VISTARIL) 25 mg capsule Take 1 capsule by mouth three times daily as needed. [facility] Blood-Glucose Meter (FREESTYLE LITE METER) monitoring kit Freestyle LITE Meter Kit - gabapentin (NEURONTIN) 300 mg capsule Take 1 capsule by mouth three times daily. No current facility-administered medications for this visit. ALLERGIES Allergen Reactions - Mri Contrast [Gadol* GI Upset - Mushroom Anaphylaxis - Peanuts Anaphylaxis PAST SURGICAL HISTORY Procedure Laterality Date - 2D ECHO (EXEP) 06/28/2017 EF=65%. nl - DANDC, DIAG AND/OR THERAPEUTIC Dilation AND curettage - PAST SURGICAL HISTORY OF cholecystectomy - PAST SURGICAL HISTORY OF 09/2012 back surgery x2 - PAST SURGICAL HISTORY OF Left AND 02/2014 foot x2 - PAST SURGICAL HISTORY OF 07/2015 Knapp stoma - STRESS TEST 07/18/2017 normal Physical Exam: Constitutional: Pt is a well developed 36 year old female who is alert, oriented, cooperative and in no apparent distress. OBJECTIVE: NVSI unchanged from previous visit. Dermatological: Plantar aspect of left foot has dry eschar to prior ulceration. There is no deep ulceration on exam today. There is no redness, no warmth, no drainage, no local signs of infection. Musculoskeletal/Orthopaedic: Patient has no pain to palpation of left foot ASSESSMENT: (L97.522) Ulcer of toe of left foot, with fat layer exposed (HCC) (primary encounter diagnosis) (E11.49) Other diabetic neurological complication associated with type 2 diabetes mellitus (HCC) PLAN: 1. History and physical examination completed today. 2. Patient was examined and informed of current findings. Discussed prior ulceration of left foot. On exam today, the ulceration is now dry eschar. This was debrided with sanding disk. There are no local signs of infection. I did try calling patient earlier in week to review past blood work. Her wbc was slightly abnormal and esr/crp was also elevated. Certainly this could be due to low lying chronic osteomyelitis but on exam, there is no signs of infection to foot. I feel as though this elevated blood work could be coming from elsewhere. Recommend she pick her medication up that was prescribed by her other physician. I will repeat blood work for her and again, the foot does not show any acute signs of infection. 3. Given the recent ulcer, the negative xrays for bone infection, I will order mri to assure no deep bone infection that would require bone biopsy vs bone resection. 4. She is to continue with surgical shoe and nwb with wheel chair. I will have patient f/u in 1 week 5. If she has any issues, she is to present to ed as I will be away from office for the next two days. Gavin Gomez DPM CNOV Observed: 08/02/2017 Status: COMPLETED Source: [place] 8:[address] [facility] REPOSITORY Office Visit (PODIWS) DEBBY BAILON ([id number]) 1980 F Date Time Provider Department 08/02/17 8:40 AM GAVIN GOMEZ During your visit today, we recorded the following information about you: Maranda Echeverria Ma 08/02/2017 9:47 AM Signed Continue current wound care instructions and post op shoe Repeat labs - we will call you with results MRI scheduled for - today at 1 pm, arrive at 12:45 pm Follow up next week Gavin Gomez DPM 08/02/2017 10:29 AM Signed Follow up podiatric office visit for: Chief Complaint: This 36 year old who presents for follow up ulceration of left foot. Patient states that her wound is improving. She denies any redness to her foot. She denies any drainage. She denies any pain. She does report that she has had a yeast infection for the past few weeks. She has recently been prescribed medication but she has yet to get this yet. She denies n/v/f/c. She has no other complaints. PAIN EVALUATION No data found. Hemoglobin A1C Date Value Ref Range Status 06/02/2017 8.1 (H) 4.3 - 5.6 % Final PCP: Will Dietz MD PAST MEDICAL HISTORY Diagnosis Date - Abnormal sensation of left upper and lower extremity 08/07/2013 - Anxiety - Arthritis started age 19 - Cervical radiculopathy 05/02/2013 - Chronic pain 02/12/2015 - Depressive disorder, not elsewhere classified 11/28/2011 [facility] - DJD (degenerative joint disease), thoracic - Dysthymic disorder Depression (non-psychotic), sees BRIM SHAPER at [facility]. 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 Seeing Dr. Gregg - Numbness and tingling of left arm and leg 08/07/2013 - Panic attacks - Recurrent UTI 11/28/2011 - Spina bifida ([facility]) 01/06/2016 - Type 2 diabetes mellitus without complication ([facility]) 02/12/2015 - Urinary tract infection, site not specified Recurrent UTI's - Weakness of left upper extremity 08/07/2013 Current Outpatient Prescriptions: metroNIDAZOLE (FLAGYL) 500 mg tablet Take 1 tablet by mouth twice daily for 7 days. ciprofloxacin HCl (CIPRO) 250 mg tablet Take 500 mg by mouth twice daily. propranolol (INDERAL) 10 mg tablet Take 1 tablet by mouth twice daily. lancets (FREESTYLE LANCETS) 28 gauge misc Test blood sugar(s) 1-2 times daily. Dx: 250.0. Insulin: No DULoxetine (CYMBALTA) 30 mg capsule Take 1 capsule by mouth once daily. metFORMIN ER (GLUCOPHAGE XR) 500 mg 24 hr tablet Take 2 tablets by mouth twice daily. zolpidem (AMBIEN) 5 mg tablet Take 1 tablet by mouth at bedtime as needed for Sedation for up to 60 days. [facility] COMPOUNDED PRESCRIPTION Promogran, use as directed, ulcer of left 1st metatarsal, measurement: [id number], Dx: E11.621, L97.522 lisinopril 2.5 mg tablet Take 1 tablet by mouth once daily. oxybutynin ER (DITROPAN XL) 10 mg 24 hr tablet Take 1 tablet by mouth once daily. blood sugar diagnostic (FREESTYLE LITE STRIPS) test strip Test blood sugar(s) 1-2 times daily. Dx: 250.0. Insulin: No hydrOXYzine pamoate (VISTARIL) 25 mg capsule Take 1 capsule by mouth three times daily as needed. [facility] Blood-Glucose Meter (FREESTYLE LITE METER) monitoring kit Freestyle LITE Meter Kit - gabapentin (NEURONTIN) 300 mg capsule Take 1 capsule by mouth three times daily. No current facility-administered medications for this visit. ALLERGIES Allergen Reactions - Mri Contrast [Gadol* GI Upset - Mushroom Anaphylaxis - Peanuts Anaphylaxis PAST SURGICAL HISTORY Procedure Laterality Date - 2D ECHO (EXEP) 06/28/2017 EF=65%. nl - DANDamp;C, DIAG AND/OR THERAPEUTIC Dilation ANDamp; curettage - PAST SURGICAL HISTORY OF cholecystectomy - PAST SURGICAL HISTORY OF 09/2012 back surgery x2 - PAST SURGICAL HISTORY OF Left 9 ANDamp; 02/2014 foot x2 - PAST SURGICAL HISTORY OF 07/2015 Knapp stoma - STRESS TEST 07/18/2017 normal Physical Exam: Constitutional: Pt is a well developed 36 year old female who is alert, oriented, cooperative and in no apparent distress. OBJECTIVE: NVSI unchanged from previous visit. Dermatological: Plantar aspect of left foot has dry eschar to prior ulceration. There is no deep ulceration on exam today. There is no redness, no warmth, no drainage, no local signs of infection. Musculoskeletal/Orthopaedic: Patient has no pain to palpation of left foot ASSESSMENT: (L97.522) Ulcer of toe of left foot, with fat layer exposed (HCC) (primary encounter diagnosis) (E11.49) Other diabetic neurological complication associated with type 2 diabetes mellitus (HCC) PLAN: 1. History and physical examination completed today. 2. Patient was examined and informed of current findings. Discussed prior ulceration of left foot. On exam today, the ulceration is now dry eschar. This was debrided with sanding disk. There are no local signs of infection. I did try calling patient earlier in week to review past blood work. Her wbc was slightly abnormal and esr/crp was also elevated. Certainly this could be due to low lying chronic osteomyelitis but on exam, there is no signs of infection to foot. I feel as though this elevated blood work could be coming from elsewhere. Recommend she pick her medication up that was prescribed by her other physician. I will repeat blood work for her and again, the foot does not show any acute signs of infection. 3. Given the recent ulcer, the negative xrays for bone infection, I will order mri to assure no deep bone infection that would require bone biopsy vs bone resection. 4. She is to continue with surgical shoe and nwb with wheel chair. I will have patient f/u in 1 week 5. If she has any issues, she is to present to ed as I will be away from office for the next two days. Gavin Gomez DPM Referring Provider: GAVIN GOMEZ [[id number]] Allergies As of Date: 08/02/2017 Noted Allergy Reaction MRI CONTRAST (GADOLINIUM-CONTAINI*01/03/2017 8 - GI Upset MUSHROOM 06/10/2016 10 - Anaphylaxis PEANUTS 06/10/2016 10 - Anaphylaxis Date Reviewed: 08/02/2017 Reviewed by: Maranda Echeverria Ma - Fully Assessed Reason for Visit: Follow Up [171] Primary Visit Diagnosis:Ulcer of toe of left foot, with fat layer exposed (HCC) [L97.522] Other Visit Diagnosis:Other diabetic neurological complication associated with type 2 diabetes mellitus (HCC) [E11.49] Order(s):CBC + DIFF [SQCBCDIF] Order #: [id number] FUTURE SED RATE WESTERGREN [SQWSR] Order #: [id number] FUTURE C-REACTIVE PROTEIN (CRP) [SQCRP] Order #: [id number] FUTURE MRI FOOT/TOES WO IVCON LT [[id number]] Order #: [id number] FUTURE Prescriptions as of 08/02/2017 Sig: METRONIDAZOLE 500 MG TABLET Take 1 tablet by mouth twice * CIPROFLOXACIN 250 MG TABLET Take 500 mg by mouth twice da* PROPRANOLOL 10 MG TABLET Take 1 tablet by mouth twice * LANCETS 28 GAUGE Test blood sugar(s) 1- 2 times* DULOXETINE 30 MG CAPSULE,SHERRY* Take 1 capsule by mouth once * METFORMIN ER 500 MG TABLET,EX* Take 2 tablets by mouth twice* ZOLPIDEM 5 MG TABLET Take 1 tablet by mouth at bed* COMPOUNDED PRESCRIPTION Promogran, use as directed, u* LISINOPRIL 2.5 MG TABLET Take 1 tablet by mouth once d* OXYBUTYNIN CHLORIDE ER 10 MG * Take 1 tablet by mouth once d* BLOOD SUGAR DIAGNOSTIC STRIPS Test blood sugar(s) 1- 2 times* HYDROXYZINE PAMOATE 25 MG CAP* Take 1 capsule by mouth three* BLOOD-GLUCOSE METER KIT Freestyle LITE Meter Kit - GABAPENTIN 300 MG CAPSULE Take 1 capsule by mouth three* Problem List As Of Date 08/02/2017 Noted Resolved Threatened , antepartum [O20.0] INVALID FOR*04/07/2011 Supervision of normal first [Z34.00] INVALID FOR*04/07/2011 Cyst of ovary [N83.209] INVALID FOR* Priority: C Depressive disorder, not elsewhere classified [*INVALID FOR*01/06/2016 Priority: A More... Anxiety [F41.9] INVALID FOR* Priority: A More... Recurrent UTI [N39.0] INVALID FOR* Priority: C Dysthymic disorder [F34.1] Priority: A More... Panic attacks [F41.0] Priority: A Neck pain [M54.2] INVALID FOR* Priority: M Cervical radiculopathy [M54.12] INVALID FOR* Priority: M Weakness of both upper extremities [R29.898] INVALID FOR* Priority: M More... Muscle weakness of lower extremity [M62.81] INVALID FOR* Priority: M More... 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 Morbid obesity ([facility]) [E66.01] INVALID FOR* Priority: B Chronic pain [G89.29] INVALID FOR* Priority: M Neurogenic bladder [N31.9] INVALID FOR* Priority: B Hydronephrosis, right [N13.30] INVALID FOR* Priority: C History of kidney stones [Z87.442] INVALID FOR* Priority: C Spina bifida ([facility]) [Q05.9] INVALID FOR* Priority: B Neurogenic bowel [K59.2] INVALID FOR* Priority: B Primary insomnia [F51.01] INVALID FOR* Priority: A Type 2 diabetes mellitus with proteinuria ([facility])*INVALID FOR* Priority: A Pyelonephritis [N12] INVALID FOR* Diabetic eye exam ([facility]) [E11.9, Z01.00] INVALID FOR* Priority: A More... Migraine without aura and without status migrai*INVALID FOR* Priority: A Type 2 diabetes mellitus with albuminuria ([facility])*INVALID FOR* Priority: A Well adult exam [Z00.00] INVALID FOR* Priority: E More... Ulcer of left foot ([facility]) [L97.529] INVALID FOR* Priority: M Paroxysmal SVT (supraventricular tachycardia) (*INVALID FOR* Priority: A More... Other instructions from your clinician: Continue current wound care instructions and post op shoe Repeat labs - we will call you with results MRI scheduled for - today at 1 pm, arrive at 12:45 pm Follow up next week Encounter Status:Closed by GAVIN GOMEZ DPM on 08/02/17 Observed: 07/28/2017 Status: F Source: [place] TRICHOMONAS PREP 2:[address] [facility] REPOSITORY Sp. Request/Comment: - Swab Smear Result - Negative for Trichomonas vaginalis antigen This test was developed and its performance characteristics determined by [facility]'s [facility] [place] ([facility]). It has not been cleared or approved by the FDA. [facility] is regulated under CLIA as qualified to perform high-complexity testing. This test is used for clinical purposes. It should not be regarded as investigational or for research. Performed By: #### TRICHO #### [facility] [employer] [address] [place] [address] Observed: 07/28/2017 Status: F Source: [place] BACT/CAND VAG GRM ST 2:[address] [facility] REPOSITORY Sp. Request/Comment: - Swab Smear Result - BACTERIAL VAGINOSIS RESULT: Stain results consistent with bacterial vaginosis. --> ABNORMAL ALERT No Yeast observed No Polymorphonuclear leukocytes Performed By: #### BVCNSM #### [facility] [employer] [address] [place] [address] CYTOLOGY Observed: 07/28/2017 Status: C Source: [place] 2:[address] [facility] REPOSITORY ADDITIONAL PROCEDURES PRESENT Specimen originated from [facility] Specimen #: [id number] Submitting Physician: MEGAN AMADOR CNM SPECIMEN SUBMITTED A: CERVICAL, SCREENING, FLUID FINAL DIAGNOSIS A. CERVICAL, SCREENING, FLUID Satisfactory for interpretation. Negative for intraepithelial lesion or malignancy. Predominance of coccobacilli consistent with shift in vaginal fred. Blood. This specimen has been analyzed by the ThinPrep Imaging System, an automated imaging and review system, which assists the laboratory in evaluating cells on ThinPrep Pap tests. Following automated imaging, selected hartley from every slide are reviewed by a medical malpractice paralegal. TIGIST Pisano(ASCP) (Electronic Signature) ADDITIONAL PROCEDURE(S) HUMAN PAPILLOMA VIRUS Date Ordered: 08/01/2017 Date Reported: 08/02/2017 Procedure Results and Interpretation Negative for HPV DNA high risk type 16 by PCR. Negative for HPV DNA high risk type 18 by PCR. Negative for HPV DNA high risk types: 31,33,35,39,45,51,52,56,58,59,66,68 by PCR. This test was developed and its performance characteristics determined by [facility]'s [facility] [place] ([facility]). It has not been cleared or approved by the FDA. [facility] is regulated under CLIA as qualified to perform high-complexity testing. This test is used for clinical purposes. It should not be regarded as investigational or for research. CLINICAL DATA ROUTINE EXAM, HPV Testing: Yes, automatic HPV patients over 30 Date of Last Menstrual Period: 07/14/2017 STAINS A: CERVICAL, SCREENING, FLUID THIN PREP CORRECTIONAL PROBATION OFFICER Taya Sierra M.D., Switch Repairer Date of Report: 08/08/2017 Date of Procedure: 07/28/2017 Date of Receipt: 08/01/2017 Submitted by: MEGAN AMADRO CNM Location: [facility] Diagnostic interpretation performed at [facility], [address] [place] [address]. The Pap Smear is a screening test for cervical cancer. False negative results occur with all screening tests, emphasizing the need for rescreening at recommended intervals, and clinical correlation. PROGRESS Observed: 07/28/2017 Status: COMPLETED Source: [place] 2:02 PM [facility] REPOSITORY HNO ID: [id number] Author: Megan Amador Service: (none) Author Type: Director Of Collections Type: Progress Notes Filed: 07/28/2017 5:32 PM Note Text: Debby Bailon is a 36 year old who presents for her annual gynecologic exam with irregular menses Menses: cycles every 2 weeks and 2 days of flow for the last 3-4 months. Prior to this menses were once a month. Now menses are heavy with large clots, size of 50 cent piece. Cramping severe and painful but this is chronic for her and does not correlate with menses. Gets frequent UTIs due to spina bifida. Contraception: none HPV vaccine: Yes Last Pap: 2010 normal HPV: N/A History of abnormal pap: No Last mammogram: never Sexually active: No Time with current partner: 9 years off and on with Obstetric History T0 L0 SAB1 TAB0 Ectopic0 Multiple0 Live Births0 PAST MEDICAL HISTORY Diagnosis Date - Abnormal sensation of left upper and lower extremity 08/07/2013 - Anxiety - Arthritis started age 19 - Cervical radiculopathy 05/02/2013 - Chronic pain 02/12/2015 - Depressive disorder, not elsewhere classified 11/28/2011 [facility] - DJD (degenerative joint disease), thoracic - Dysthymic disorder Depression (non-psychotic), sees BRIM SHAPER at [facility]. 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 Seeing Dr. Gregg - Numbness and tingling of left arm and leg 08/07/2013 - Panic attacks - Recurrent UTI 11/28/2011 - Spina bifida (HCC) 01/06/2016 - Type 2 diabetes mellitus without complication ([facility]) 02/12/2015 - Urinary tract infection, site not specified Recurrent UTI's - Weakness of left upper extremity 08/07/2013 PAST SURGICAL HISTORY Procedure Laterality Date - 2D ECHO (EXEP) 06/28/2017 EF=65%. nl - DANDC, DIAG AND/OR THERAPEUTIC Dilation AND curettage - PAST SURGICAL HISTORY OF cholecystectomy - PAST SURGICAL HISTORY OF 09/2012 back surgery x2 - PAST SURGICAL HISTORY OF Left AND 02/2014 foot x2 - PAST SURGICAL HISTORY OF 07/2015 Knapp stoma - STRESS TEST 07/18/2017 normal FAMILY HISTORY Problem Relation Age of Onset - Arthritis Mother - Diabetes Mother - Heart Mother - Hypertension Mother - Lipids Mother - Stroke Mother - Thyroid Mother - Cancer Father Skin - Cancer Maternal Grandmother LIVER CANCER - Cancer Maternal Uncle Great Uncle - Cancer Maternal Uncle Great Uncle SOCIAL HISTORY Social History Substance Use Topics - Smoking status: Never Smoker - Smokeless tobacco: Never Used - Alcohol use No REVIEW OF SYSTEMS Abdomen: No abdominal pain, nausea, vomiting, diarrhea, or constipation. No bloating, early satiety, indigestion, or increased flatulence. Bladder: No dysuria, gross hematuria, urinary frequency, urinary urgency, or incontinence. Breast: No breast lumps, nipple d/c, overlying skin changes, redness or skin retraction. Allergies and current medication updated:Yes EXAM: BP 114/74 Ht 5' 2[With shoes[ (1.58m) Wt 240 lb (108.9kg) LMP 07/14/2017 BMI 43.89 kg/(m2). GENERAL: pleasant, female in no apparent distress HEENT: Normocephalic, atraumatic, mucus membranes moist and no lesions NECK: Supple, full range of motion, no adenopathy and thyroid normal DERMATOLOGY: Normal, without lesions, non-icteric and non-hirsute BREAST: soft, non-tender, symmetric, no dominant mass, normal nipple-areolar complex, no lymphadenopathy and no nipple discharge CHEST: Clear to auscultation Normal inspiratory effort Regular rate and rhythm No murmurs, clicks, rubs or gallops ABDOMEN: soft, non-tender and no masses PELVIC: external genitalia normal, normal Bartholin's glands, urethra, [place]'s glands, no vulvar lesions, no cervical lesions, good vaginal support, physiologic discharge present, normal appearing perineal body and perianal region BIMANUAL: uterus normal size, shape and consistency, no adnexal masses and non-tender RECTOVAGINAL: deferred. NEURO: alert and oriented x3,exam grossly non-focal EXTREMITIES: normal ASSESSMENT/PLAN: 1. Screening for STD (sexually transmitted disease) - ICD9: V74.5, ICD10: Z11.3 (primary diagnosis) - GC/CHLAMYDIA DNA DET - TRICHOMONAS PREP 2. Screening for cervical cancer - ICD9: V76.2, ICD10: Z12.4 - PAP FLUID CERVICAL SCREENING 3. Encounter for screening for human papillomavirus (HPV) - ICD9: V73.81, ICD10: Z11.51 - PAP FLUID CERVICAL SCREENING 4. Pelvic pain in female - ICD9: 625.9, ICD10: R10.2 - ULTRASOUND WHI 5. Menorrhagia with irregular cycle - ICD9: 626.2, ICD10: N92.1 - ULTRASOUND WHI - CBC + DIFF - PROLACTIN BLD 6. Metrorrhagia - ICD9: 626.6, ICD10: N92.1 - ULTRASOUND WHI - CBC + DIFF - PROLACTIN BLD 7. Vaginal discharge - ICD9: 623.5, ICD10: N89.8 - BACT/NANO VAG GRAM STAIN 8. Irregular menses - ICD9: 626.4, ICD10: N92.6 - TSH BLD 1) Health maintenance: Pap done with HPV. Nutrition, exercise and routine health maintenance exams reviewed. Calcium/Vitamin D supplementation information provided. Lipids/glucose: followed by PCP Vitamin D: followed by PCP 2) Contraception: none. Contraceptive options reviewed and information provided. 3) STD screening: Accepted STD check for Gonorrhea and Chlamydia. BV, yeast, and trich today. 4) Follow up in 2 weeks after labs and U/S completed Megan Amador CNM GC/CHLAMYDIA AMPLIF Collected: 07/28/2017 Status: F Source: [place] 1:[address] [facility] REPOSITORY TYPE CODE TESTS RESULT OUT OF REFERENCE UNITS RANGE LAB GCCTSR GC/Chlam Amp Cervix Source LAB GCAMPL GC Negative Amplification for Neisseria gonorrhoeae by amplification. LAB CLAMPL Chlamydia Negative Amplif for Chlamydia trachomatis by amplification. Performed By: #### GCCT #### [facility] [address] [place], [place] [address] CNOV Observed: 07/28/2017 Status: COMPLETED Source: [place] 1:[address] [facility] REPOSITORY Office Visit (WOOB) DEBBY BAILON ([id number]) 1980 F Date Time Provider Department 07/28/17 1:45 PM ASSESSMENT [employer] [facility] WOOB During your visit today, we recorded the following information about you: Blood pressure Weight Height Last Period 114/74 108.9 kg 1.575 m 07/14/17 Megan Amador CNM 07/28/2017 5:32 PM Signed Debby Bailon is a 36 year old who presents for her annual gynecologic exam with irregular menses Menses: cycles every 2 weeks and 2 days of flow for the last 3-4 months. Prior to this menses were once a month. Now menses are heavy with large clots, size of 50 cent piece. Cramping severe and painful but this is chronic for her and does not correlate with menses. Gets frequent UTIs due to spina bifida. Contraception: none HPV vaccine: Yes Last Pap: 2010 normal HPV: N/A History of abnormal pap: No Last mammogram: never Sexually active: No Time with current partner: 9 years off and on with Obstetric History T0 L0 SAB1 TAB0 Ectopic0 Multiple0 Live Births0 PAST MEDICAL HISTORY Diagnosis Date - Abnormal sensation of left upper and lower extremity 08/07/2013 - Anxiety - Arthritis started age 19 - Cervical radiculopathy 05/02/2013 - Chronic pain 02/12/2015 - Depressive disorder, not elsewhere classified 11/28/2011 [facility] - DJD (degenerative joint disease), thoracic - Dysthymic disorder Depression (non-psychotic), sees BRIM SHAPER at [facility]. 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 Seeing Dr. Gregg - Numbness and tingling of left arm and leg 08/07/2013 - Panic attacks - Recurrent UTI 11/28/2011 - Spina bifida (HCC) 01/06/2016 - Type 2 diabetes mellitus without complication ([facility]) 02/12/2015 - Urinary tract infection, site not specified Recurrent UTI's - Weakness of left upper extremity 08/07/2013 PAST SURGICAL HISTORY Procedure Laterality Date - 2D ECHO (EXEP) 06/28/2017 EF=65%. nl - DANDamp;C, DIAG AND/OR THERAPEUTIC Dilation ANDamp; curettage - PAST SURGICAL HISTORY OF cholecystectomy - PAST SURGICAL HISTORY OF 09/2012 back surgery x2 - PAST SURGICAL HISTORY OF Left 9 ANDamp; 02/2014 foot x2 - PAST SURGICAL HISTORY OF 07/2015 Knapp stoma - STRESS TEST 07/18/2017 normal FAMILY HISTORY Problem Relation Age of Onset - Arthritis Mother - Diabetes Mother - Heart Mother - Hypertension Mother - Lipids Mother - Stroke Mother - Thyroid Mother - Cancer Father Skin - Cancer Maternal Grandmother LIVER CANCER - Cancer Maternal Uncle Great Uncle - Cancer Maternal Uncle Great Uncle SOCIAL HISTORY Social History Substance Use Topics - Smoking status: Never Smoker - Smokeless tobacco: Never Used - Alcohol use No REVIEW OF SYSTEMS Abdomen: No abdominal pain, nausea, vomiting, diarrhea, or constipation. No bloating, early satiety, indigestion, or increased flatulence. Bladder: No dysuria, gross hematuria, urinary frequency, urinary urgency, or incontinence. Breast: No breast lumps, nipple d/c, overlying skin changes, redness or skin retraction. Allergies and current medication updated:Yes EXAM: BP 114/74 Ht 5' 2ANDquot;[With shoes[ (1.58m) Wt 240 lb (108.9kg) LMP 07/14/2017 BMI 43.89 kg/(m2). GENERAL: pleasant, female in no apparent distress HEENT: Normocephalic, atraumatic, mucus membranes moist and no lesions NECK: Supple, full range of motion, no adenopathy and thyroid normal DERMATOLOGY: Normal, without lesions, non-icteric and non-hirsute BREAST: soft, non-tender, symmetric, no dominant mass, normal nipple-areolar complex, no lymphadenopathy and no nipple discharge CHEST: Clear to auscultation Normal inspiratory effort Regular rate and rhythm No murmurs, clicks, rubs or gallops ABDOMEN: soft, non-tender and no masses PELVIC: external genitalia normal, normal Bartholin's glands, urethra, [place]'s glands, no vulvar lesions, no cervical lesions, good vaginal support, physiologic discharge present, normal appearing perineal body and perianal region BIMANUAL: uterus normal size, shape and consistency, no adnexal masses and non-tender RECTOVAGINAL: deferred. NEURO: alert and oriented x3,exam grossly non-focal EXTREMITIES: normal ASSESSMENT/PLAN: 1. Screening for STD (sexually transmitted disease) - ICD9: V74.5, ICD10: Z11.3 (primary diagnosis) - GC/CHLAMYDIA DNA DET - TRICHOMONAS PREP 2. Screening for cervical cancer - ICD9: V76.2, ICD10: Z12.4 - PAP FLUID CERVICAL SCREENING 3. Encounter for screening for human papillomavirus (HPV) - ICD9: V73.81, ICD10: Z11.51 - PAP FLUID CERVICAL SCREENING 4. Pelvic pain in female - ICD9: 625.9, ICD10: R10.2 - ULTRASOUND WHI 5. Menorrhagia with irregular cycle - ICD9: 626.2, ICD10: N92.1 - ULTRASOUND WHI - CBC + DIFF - PROLACTIN BLD 6. Metrorrhagia - ICD9: 626.6, ICD10: N92.1 - ULTRASOUND WHI - CBC + DIFF - PROLACTIN BLD 7. Vaginal discharge - ICD9: 623.5, ICD10: N89.8 - BACT/NANO VAG GRAM STAIN 8. Irregular menses - ICD9: 626.4, ICD10: N92.6 - TSH BLD 1) Health maintenance: Pap done with HPV. Nutrition, exercise and routine health maintenance exams reviewed. Calcium/Vitamin D supplementation information provided. Lipids/glucose: followed by PCP Vitamin D: followed by PCP 2) Contraception: none. Contraceptive options reviewed and information provided. 3) STD screening: Accepted STD check for Gonorrhea and Chlamydia. BV, yeast, and trich today. 4) Follow up in 2 weeks after labs and U/S completed DARLENE Tavera RN 08/03/2017 10:47 AM Signed Addended by: TAYA ISAACS RN on: 08/03/2017 10:47 AM Modules accepted: Orders Naty Sharma Psr 08/08/2017 2:35 PM Signed pap logged, letter sent. Naty Sharma Psr Referring Provider: WILL DIETZ [[id number]] Allergies As of Date: 07/28/2017 Noted Allergy Reaction MRI CONTRAST (GADOLINIUM-CONTAINI*01/03/2017 8 - GI Upset MUSHROOM 06/10/2016 10 - Anaphylaxis PEANUTS 06/10/2016 10 - Anaphylaxis Date Reviewed: 07/28/2017 Reviewed by: Megan Fernandez) Perry - Fully Assessed Reason for Visit: Irregular Menstrual Cycle [278] Primary Visit Diagnosis:Screening for STD (sexually transmitted disease) [Z11.3] Other Visit Diagnoses:Screening for cervical cancer [Z12.4] Encounter for screening for human papillomavirus (HPV) [Z11.51] Pelvic pain in female [R10.2] Menorrhagia with irregular cycle [N92.1] Metrorrhagia [N92.1] Vaginal discharge [N89.8] Irregular menses [N92.6] Order(s):PAP FLUID CERVICAL SCREENING [3510008] Order #: [id number]. #:[id number] BACT/NANO VAG GRAM STAIN [SQBVCNSM] Order #: [id number] FUTURE GC/CHLAMYDIA DNA DET [SQGCCAMP] Order #: [id number]. #:[id number] TRICHOMONAS PREP [SQTRICHO] Order #: [id number]. #:[id number] CBC + DIFF [SQCBCDIF] Order #: [id number] FUTURE PROLACTIN BLD [SQPROL] Order #: [id number] FUTURE TSH BLD [SQTSH] Order #: [id number] FUTURE HPV W/GENOTYPE [SQHPVHRR] Order #: [id number]. #:[id number] Prescriptions as of 07/28/2017 Sig: CIPROFLOXACIN 250 MG TABLET Take 500 mg by mouth twice da* PROPRANOLOL 10 MG TABLET Take 1 tablet by mouth twice * LANCETS 28 GAUGE Test blood sugar(s) 1- 2 times* DULOXETINE 30 MG CAPSULE,SHERRY* Take 1 capsule by mouth once * METFORMIN ER 500 MG TABLET,EX* Take 2 tablets by mouth twice* ZOLPIDEM 5 MG TABLET Take 1 tablet by mouth at bed* COMPOUNDED PRESCRIPTION Promogran, use as directed, u* LISINOPRIL 2.5 MG TABLET Take 1 tablet by mouth once d* OXYBUTYNIN CHLORIDE ER 10 MG * Take 1 tablet by mouth once d* BLOOD SUGAR DIAGNOSTIC STRIPS Test blood sugar(s) 1- 2 times* HYDROXYZINE PAMOATE 25 MG CAP* Take 1 capsule by mouth three* BLOOD-GLUCOSE METER KIT Freestyle LITE Meter Kit - GABAPENTIN 300 MG CAPSULE Take 1 capsule by mouth three* Problem List As Of Date 07/28/2017 Noted Resolved Threatened , antepartum [O20.0] INVALID FOR*04/07/2011 Supervision of normal first [Z34.00] INVALID FOR*04/07/2011 Cyst of ovary [N83.209] INVALID FOR* Priority: C Depressive disorder, not elsewhere classified [*INVALID FOR*01/06/2016 Priority: A More... Anxiety [F41.9] INVALID FOR* Priority: A More... Recurrent UTI [N39.0] INVALID FOR* Priority: C Dysthymic disorder [F34.1] Priority: A More... Panic attacks [F41.0] Priority: A Neck pain [M54.2] INVALID FOR* Priority: M Cervical radiculopathy [M54.12] INVALID FOR* Priority: M Weakness of both upper extremities [R29.898] INVALID FOR* Priority: M More... Muscle weakness of lower extremity [M62.81] INVALID FOR* Priority: M More... 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 Morbid obesity ([facility]) [E66.01] INVALID FOR* Priority: B Chronic pain [G89.29] INVALID FOR* Priority: M Neurogenic bladder [N31.9] INVALID FOR* Priority: B Hydronephrosis, right [N13.30] INVALID FOR* Priority: C History of kidney stones [Z87.442] INVALID FOR* Priority: C Spina bifida ([facility]) [Q05.9] INVALID FOR* Priority: B Neurogenic bowel [K59.2] INVALID FOR* Priority: B Primary insomnia [F51.01] INVALID FOR* Priority: A Type 2 diabetes mellitus with proteinuria ([facility])*INVALID FOR* Priority: A Pyelonephritis [N12] INVALID FOR* Diabetic eye exam ([facility]) [E11.9, Z01.00] INVALID FOR* Priority: A More... Migraine without aura and without status migrai*INVALID FOR* Priority: A Type 2 diabetes mellitus with albuminuria ([facility])*INVALID FOR* Priority: A Well adult exam [Z00.00] INVALID FOR* Priority: E More... Ulcer of left foot ([facility]) [L97.529] INVALID FOR* Priority: M Paroxysmal SVT (supraventricular tachycardia) (*INVALID FOR* Priority: A More... Disposition: Return in 2 years (on 07/29/2019) for follow up results. Please make sure ultrasound is done on a different day and prior to follow up robert. Follow-up and Disposition History Recorded Letter Text [facility] [address], [place] [address] Debby Bailon [address] [facility] [address] 08/08/2017 [facility]: [id number] Dear Debby, We are pleased to inform you that your recent Pap Test was within normal limits. Because Pap tests are so effective in the early detection of cervical cancer, you are encouraged to continue having the test at regular intervals. You will be due for a 1 year Gynecological Exam after this date 07/28/2018. If you have any questions regarding the above information, do not hesitate to call our office at between the hours of 8:00 a.m. and 5:00 p.m. Sincerely, Megan Amador [facility] Encounter Status:Closed by MEGAN AMADOR on 07/28/17 HPV W/GENOTYPE Collected: 07/28/2017 Status: F Source: [place] 4:[address] [facility] REPOSITORY TYPE CODE TESTS RESULT OUT OF REFERENCE UNITS RANGE LAB HPVT16 HPV HighRisk Negative for Type 16 HPV DNA high risk type 16 by PCR. LAB HPVT18 HPV HighRisk Negative for Type 18 HPV DNA high risk type 18 by PCR. LAB HPVHRO HPV HighRisk Negative for Other HPV DNA high risk types: 31,33,35,39,45 ,51,52,56,58,5 9,66,68 by PCR. Result Comment: This test was developed and its performance characteristics determined by [facility] [place] ([facility]). It has not been cleared or approved by the FDA. -[facility] is regulated under CLIA as qualified to perform high-complexity testing. This test is used for clinical purposes. It should not be regarded as inv estigational or for research. Performed By: #### HPVHRR #### [facility] [address] [place], [place] [address] PROGRESS Observed: 07/27/2017 Status: COMPLETED Source: [place] 12:[address] [facility] REPOSITORY HNO ID: [id number] Author: Maranda Echeverria Ma Service: (none) Author Type: (none) Type: Progress Notes Filed: 07/27/2017 12:35 PM Note Text: L foot ulcer irrigated with betadine saline solution. Applied Praveena to ulcer. Covered with 4x4 and herson. Patient given diabetic offloading shoe with peg assist insert. Maranda Echeverria Ma CBC AND DIFFERENTIAL Collected: 07/27/2017 Status: F Source: [place] 11:[address] [facility] REPOSITORY TYPE CODE TESTS RESULT OUT OF REFERENCE UNITS RANGE LAB WBC 3.70-11.00 k/uL WBC High 11.20 LAB RBC 3.90-5.20 m/uL RBC 4.40 LAB HGB 11.5-15.5 g/dL Hemoglobin 12.9 LAB HCT 36.0-46.0 % Hematocrit 41.4 LAB MCV 80.0-100.0 fL MCV 94.1 LAB MCH 26.0-34.0 pG MCH 29.3 LAB MCHC 30.5-36.0 g/dL MCHC 31.2 LAB RDWCV 11.5-15.0 % RDW-CV 13.6 LAB PLTCT 150-400 k/uL Platelet Count 229 LAB MPV 9.0-12.7 fL MPV 11.8 LAB ANEUT % Neut% 63.6 LAB AANEUT 1.45-7.50 k/uL Abs Neut 7.13 LAB ALYMP % Lymph% 23.5 LAB AALYMP 1.00-4.00 k/uL Abs Lymph 2.63 LAB AMONO % Bradley% 9.4 LAB AAMONO <0.87 k/uL Abs Bradley High 1.05 LAB AEOS % Eosin% 2.6 LAB AAEOS <0.46 k/uL Abs Eosin 0.29 LAB ABASO % Baso% 0.9 LAB AABASO <0.11 k/uL Abs Baso 0.10 LAB AUNRBC 0 /100 WBC NRBCs 0.0 LAB ABNRBC <0.01 k/uL Absolute nRBC <0.01 LAB DTYP DTYPE Auto Diff Performed By: #### CBCDIF, CRP, WSR #### [facility] [address] [place], [place] [address] C-REACTIVE PROTEIN Collected: 07/27/2017 Status: F Source: [place] 11:[address] [facility] REPOSITORY TYPE CODE TESTS RESULT OUT OF REFERENCE UNITS RANGE LAB CRP <0.9 mg/dL High C-Reactive 0.9 Protein Performed By: #### CBCDIF, CRP, WSR #### [facility] [address], [place] [address] SED RATE WESTERGREN Collected: 07/27/2017 Status: F Source: [place] 11:[address] [facility] REPOSITORY TYPE CODE TESTS RESULT OUT OF REFERENCE UNITS RANGE LAB WSR 0-20 mm/hr Sed Rate High Westergren 40 Performed By: #### CBCDIF, CRP, WSR #### [facility] [address], [place] [address] PROLACTIN Collected: 07/27/2017 Status: F Source: [place] 11:[address] [facility] REPOSITORY TYPE CODE TESTS RESULT OUT OF REFERENCE UNITS RANGE LAB PROL 4.5-26.8 ng/mL Prolactin 18.7 Performed By: #### PROL, TSH #### [place] [address] TSH Collected: 07/27/2017 Status: F Source: [place] 11:[address] [facility] REPOSITORY TYPE CODE TESTS RESULT OUT OF RANGE REFERENCE UNITS LAB TSH 0.400-5.500 uU/mL TSH 0.832 Result Comment: If the patient is , TSH reference range varies by gestational period: First Trimester 0.100-2.500 uU/mL Second Trimester 0.200-3.000 uU/mL Third Trimester 0.300-3.000 uU/mL References: 1. Giron L, Stephanie M, Chaim EK, et al. Management of Thyroid Dysfunction during and : An Endocrine Society Clinical Practice Guideline. J Clin Endocrinol Metab, 2012:97:1623-9687. 2. Jez [place]. Overview of thyroid disease in . UpToDate. 2016. Accessed on November 13, 2015. Performed By: #### PROL, TSH #### [facility] [address], [place] [address] XR FOOT 3V AP/LAT/OBL Observed: 07/27/2017 Status: F Source: [facility] 11:[address] [facility] REPOSITORY * * *Final Report* * * DATE OF EXAM: Jul 27 2017 11:38AM [id number] [id number] - XR FOOT 3V AP/LAT/OBL LT / PROCEDURE REASON: Non-pressure chronic ulcer of other part of left foot with fat layer exposed * * * * Physician Interpretation * * * * HISTORY: 36-YEAR-OLD FEMALE WITH Non-pressure chronic ulcer of other part of left foot with fat layer exposed . pt states has an ulcer under the left grt toe for 3 weeks is a diabetic TECHNIQUE: XR FOOT 3V AP/LAT/OBL LT Laterality: LEFT Number of different views (projections): 3 COMPARISON: None RESULT: Status post resection of the distal fifth metatarsal with small bony fragment remaining between the proximal half metatarsal and proximal phalanx. Hallux valgus with bunion deformity. Lateral subluxation sesamoids and first metatarsal. Claw toe deformities of the first through fourth digits. Calcaneal enthesophyte insertion Achilles tendon. Heel varus scratch that heel valgus. No acute fracture. No radiographic evidence of osteomyelitis at this time. IMPRESSION: POSTSURGICAL CHANGES OF THE FIFTH METATARSAL. HALLUX VALGUS WITH BUNION DEFORMITY. Paper Rewinder Operator: PSCJena Transcribe Date/Time: Jul 27 2017 12:52P Dictated by : OG BRIDGES MD This examination was interpreted and the report reviewed and electronically signed by: OG BRIDGES MD on Jul 27 2017 12:54PM EST [id number] PROGRESS Observed: 07/27/2017 Status: COMPLETED Source: [place] 11:32 AM [facility] REPOSITORY HNO ID: [id number] Author: Morena Moran (Rt) Amee Burnette Service: (none) Author Type: Gastroenterology Nurse Type: Progress Notes Filed: 07/27/2017 11:39 AM Note Text: Radiology Service Progress Note PATIENT NAME: Debby Bailon DATE OF SERVICE: July 27, 2017 TIME: 11:32 AM PATIENT IDENTITY VERIFICATION COMPLETED USING TWO (2) METHODS: Patient confirmed name verbally and Date of . PATIENT GENDER DATA: Female. status: : No status: NO. PATIENT RELEVANT IMPLANT DATA REVIEWED: Not Applicable RADIOLOGY DEPARTMENT: General X-ray: Exam(s) Completed: Lower Extremity X-Ray(s): Foot, Left: PERIPHERAL IV DATA: Not applicable SIGNED BY: RT Deniz July 27, 2017 11:32 AM PROGRESS Observed: 07/27/2017 Status: COMPLETED Source: [place] 10:44 AM [facility] REPOSITORY HNO ID: [id number] Author: Gavin Gomez Service: (none) Author Type: Physician Type: Progress Notes Filed: 07/27/2017 11:48 AM Note Text: Follow up podiatric office visit for: Chief Complaint: This 36 year old who presents for callus of left foot. Patient states this callus started about 2 weeks ago, prior to that she had no issues. She states that a few days ago, there was blackness of the callus. She went to urgent care and was evaluated. No lab work done. No debridement performed. She was given cipro and discharged. She was last seen in February for similar issue at which time diabetic shoes were ordered but she states that she is unable to afford the diabetic shoes. She was given follow-up in February for 3 weeks but she has not followed up since. PAIN EVALUATION 07/27/2017 Pain Score: 5 5-8/10 Pain Location: Foot-Left Description: Throbbing Duration Amount of Time: 1 Duration Units: Weeks Frequency: Continuous Intervention: Relaxation Hemoglobin A1C Date Value Ref Range Status 06/02/2017 8.1 (H) 4.3 - 5.6 % Final PCP: Will Dietz MD PAST MEDICAL HISTORY Diagnosis Date - Abnormal sensation of left upper and lower extremity 08/07/2013 - Anxiety - Arthritis started age 19 - Cervical radiculopathy 05/02/2013 - Chronic pain 02/12/2015 - Depressive disorder, not elsewhere classified 11/28/2011 [facility] - DJD (degenerative joint disease), thoracic - Dysthymic disorder Depression (non-psychotic), sees BRIM SHAPER at [facility]. 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 - Lumbago 02/12/2015 - Migraine - Morbid obesity (HCC) 02/12/2015 - Muscle weakness of left lower extremity 08/07/2013 - Neck pain 05/02/2013 - Neurogenic bladder 02/12/2015 - Neurogenic bladder - Neurogenic bowel 01/06/2016 - Neuropathy (HCC) 02/12/2015 post back surgery with secondary infection. Seeing Dr. Gregg - Numbness and tingling of left arm and leg 08/07/2013 - Panic attacks - Recurrent UTI 11/28/2011 - Spina bifida (HCC) 01/06/2016 - Type 2 diabetes mellitus without complication (HCC) 02/12/2015 - Urinary tract infection, site not specified Recurrent UTI's - Weakness of left upper extremity 08/07/2013 Current Outpatient Prescriptions: ciprofloxacin HCl (CIPRO) 250 mg tablet Take 500 mg by mouth twice daily. propranolol (INDERAL) 10 mg tablet Take 1 tablet by mouth twice daily. lancets (FREESTYLE LANCETS) 28 gauge misc Test blood sugar(s) 1-2 times daily. Dx: 250.0. Insulin: No DULoxetine (CYMBALTA) 30 mg capsule Take 1 capsule by mouth once daily. metFORMIN ER (GLUCOPHAGE XR) 500 mg 24 hr tablet Take 2 tablets by mouth twice daily. zolpidem (AMBIEN) 5 mg tablet Take 1 tablet by mouth at bedtime as needed for Sedation for up to 60 days. [facility] COMPOUNDED PRESCRIPTION Promogran, use as directed, ulcer of left 1st metatarsal, measurement: [id number], Dx: E11.621, L97.522 lisinopril 2.5 mg tablet Take 1 tablet by mouth once daily. oxybutynin ER (DITROPAN XL) 10 mg 24 hr tablet Take 1 tablet by mouth once daily. blood sugar diagnostic (FREESTYLE LITE STRIPS) test strip Test blood sugar(s) 1-2 times daily. Dx: 250.0. Insulin: No hydrOXYzine pamoate (VISTARIL) 25 mg capsule Take 1 capsule by mouth three times daily as needed. [facility] Blood-Glucose Meter (FREESTYLE LITE METER) monitoring kit Freestyle LITE Meter Kit - gabapentin (NEURONTIN) 300 mg capsule Take 1 capsule by mouth three times daily. No current facility-administered medications for this visit. ALLERGIES Allergen Reactions - Mri Contrast [Gadol* GI Upset - Mushroom Anaphylaxis - Peanuts Anaphylaxis PAST SURGICAL HISTORY Procedure Laterality Date - 2D ECHO (EXEP) 06/28/2017 EF=65%. nl - PAST SURGICAL HISTORY OF cholecystectomy - PAST SURGICAL HISTORY OF 09/2012 back surgery x2 - PAST SURGICAL HISTORY OF Left AND 02/2014 foot x2 - PAST SURGICAL HISTORY OF 07/2015 Knapp stoma - STRESS TEST 07/18/2017 normal Physical Exam: Constitutional: Pt is a well developed 36 year old female who is alert, oriented, cooperative and in no apparent distress. OBJECTIVE: NVSI unchanged from previous visit. Dermatological: Plantar aspect of left 1st metatarsal has hyperkeratotic lesion. This was sharply debrided. There is full thickness, noninfected ulceration of left 1st metatarsal that is approximately 4 mm in diameter and 2 mm depth. There is no purulence. No is no redness. There is no local signs of infection. Musculoskeletal/Orthopaedic: Patient has pain to palpation of plantar callus, left foot ASSESSMENT: (L97.522) Ulcer of toe of left foot, with fat layer exposed (HCC) (primary encounter diagnosis) PLAN: 1. History and physical examination completed today. 2. Patient was examined and informed of current findings. There is noninfected, full thickness ulceration of left foot following debridement of callus. I reminded patient the importance of regular check up being that she is diabetic with neuropathy. She was seen in February and failed to follow-up as scheduled. Further, she did not get the diabetic shoes. I strongly advised in future that she needs to get the diabetic shoes. Debridement was performed today with 15 blade thru dermis, epidermis and subcutaneous tissue. Bleeding present and controlled with compression. Will treat with praveena and offloading shoe. Recommended nwb and use of knee scooter. This was ordered but patient states she is unable to get. Offered crutches. She is unable to use. She has wheel chair and she will use this. I did inform her that any walking does put her at risk of failure to heal and could certainly end up in amputation. 3. Ulcer does not appear to be infected. Will get xrays and baseline blood work. 4. F/u in 1 week ERIC Boland Observed: 07/27/2017 Status: COMPLETED Source: [place] 10:[address] [facility] REPOSITORY Office Visit (PODIWS) DEBBY BAILON ([id number]) 1980 F Date Time Provider Department 07/27/17 10:25 AM GAVIN GOMEZ During your visit today, we recorded the following information about you: Gavin ERIC Gomez 07/27/2017 11:48 AM Signed Follow up podiatric office visit for: Chief Complaint: This 36 year old who presents for callus of left foot. Patient states this callus started about 2 weeks ago, prior to that she had no issues. She states that a few days ago, there was blackness of the callus. She went to urgent care and was evaluated. No lab work done. No debridement performed. She was given cipro and discharged. She was last seen in February for similar issue at which time diabetic shoes were ordered but she states that she is unable to afford the diabetic shoes. She was given follow-up in February for 3 weeks but she has not followed up since. PAIN EVALUATION 07/27/2017 Pain Score: 5 5-8/10 Pain Location: Foot-Left Description: Throbbing Duration Amount of Time: 1 Duration Units: Weeks Frequency: Continuous Intervention: Relaxation Hemoglobin A1C Date Value Ref Range Status 06/02/2017 8.1 (H) 4.3 - 5.6 % Final PCP: Will Dietz MD PAST MEDICAL HISTORY Diagnosis Date - Abnormal sensation of left upper and lower extremity 08/07/2013 - Anxiety - Arthritis started age 19 - Cervical radiculopathy 05/02/2013 - Chronic pain 02/12/2015 - Depressive disorder, not elsewhere classified 11/28/2011 [facility] - DJD (degenerative joint disease), thoracic - Dysthymic disorder Depression (non-psychotic), sees BRIM SHAPER at [facility]. 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 - Lumbago 02/12/2015 - Migraine - Morbid obesity (HCC) 02/12/2015 - Muscle weakness of left lower extremity 08/07/2013 - Neck pain 05/02/2013 - Neurogenic bladder 02/12/2015 - Neurogenic bladder - Neurogenic bowel 01/06/2016 - Neuropathy (HCC) 02/12/2015 post back surgery with secondary infection. Seeing Dr. Gregg - Numbness and tingling of left arm and leg 08/07/2013 - Panic attacks - Recurrent UTI 11/28/2011 - Spina bifida (HCC) 01/06/2016 - Type 2 diabetes mellitus without complication (HCC) 02/12/2015 - Urinary tract infection, site not specified Recurrent UTI's - Weakness of left upper extremity 08/07/2013 Current Outpatient Prescriptions: ciprofloxacin HCl (CIPRO) 250 mg tablet Take 500 mg by mouth twice daily. propranolol (INDERAL) 10 mg tablet Take 1 tablet by mouth twice daily. lancets (FREESTYLE LANCETS) 28 gauge misc Test blood sugar(s) 1-2 times daily. Dx: 250.0. Insulin: No DULoxetine (CYMBALTA) 30 mg capsule Take 1 capsule by mouth once daily. metFORMIN ER (GLUCOPHAGE XR) 500 mg 24 hr tablet Take 2 tablets by mouth twice daily. zolpidem (AMBIEN) 5 mg tablet Take 1 tablet by mouth at bedtime as needed for Sedation for up to 60 days. [facility] COMPOUNDED PRESCRIPTION Promogran, use as directed, ulcer of left 1st metatarsal, measurement: [id number], Dx: E11.621, L97.522 lisinopril 2.5 mg tablet Take 1 tablet by mouth once daily. oxybutynin ER (DITROPAN XL) 10 mg 24 hr tablet Take 1 tablet by mouth once daily. blood sugar diagnostic (FREESTYLE LITE STRIPS) test strip Test blood sugar(s) 1-2 times daily. Dx: 250.0. Insulin: No hydrOXYzine pamoate (VISTARIL) 25 mg capsule Take 1 capsule by mouth three times daily as needed. [facility] Blood-Glucose Meter (FREESTYLE LITE METER) monitoring kit Freestyle LITE Meter Kit - gabapentin (NEURONTIN) 300 mg capsule Take 1 capsule by mouth three times daily. No current facility-administered medications for this visit. ALLERGIES Allergen Reactions - Mri Contrast [Gadol* GI Upset - Mushroom Anaphylaxis - Peanuts Anaphylaxis PAST SURGICAL HISTORY Procedure Laterality Date - 2D ECHO (EXEP) 06/28/2017 EF=65%. nl - PAST SURGICAL HISTORY OF cholecystectomy - PAST SURGICAL HISTORY OF 09/2012 back surgery x2 - PAST SURGICAL HISTORY OF Left ANDamp; 02/2014 foot x2 - PAST SURGICAL HISTORY OF 07/2015 Knapp stoma - STRESS TEST 07/18/2017 normal Physical Exam: Constitutional: Pt is a well developed 36 year old female who is alert, oriented, cooperative and in no apparent distress. OBJECTIVE: NVSI unchanged from previous visit. Dermatological: Plantar aspect of left 1st metatarsal has hyperkeratotic lesion. This was sharply debrided. There is full thickness, noninfected ulceration of left 1st metatarsal that is approximately 4 mm in diameter and 2 mm depth. There is no purulence. No is no redness. There is no local signs of infection. Musculoskeletal/Orthopaedic: Patient has pain to palpation of plantar callus, left foot ASSESSMENT: (L97.522) Ulcer of toe of left foot, with fat layer exposed (HCC) (primary encounter diagnosis) PLAN: 1. History and physical examination completed today. 2. Patient was examined and informed of current findings. There is noninfected, full thickness ulceration of left foot following debridement of callus. I reminded patient the importance of regular check up being that she is diabetic with neuropathy. She was seen in February and failed to follow-up as scheduled. Further, she did not get the diabetic shoes. I strongly advised in future that she needs to get the diabetic shoes. Debridement was performed today with 15 blade thru dermis, epidermis and subcutaneous tissue. Bleeding present and controlled with compression. Will treat with praveena and offloading shoe. Recommended nwb and use of knee scooter. This was ordered but patient states she is unable to get. Offered crutches. She is unable to use. She has wheel chair and she will use this. I did inform her that any walking does put her at risk of failure to heal and could certainly end up in amputation. 3. Ulcer does not appear to be infected. Will get xrays and baseline blood work. 4. F/u in 1 week ERIC Boland RN 07/27/2017 11:04 AM Addendum Apply Praveena every other day to ulcer of L foot Wear orthowedge shoe on left foot Use wheelchair, need to be non weight bearing to your L foot Xray and labs today - we will call with results Maranda Echeverria Ma 07/27/2017 12:35 PM Signed L foot ulcer irrigated with betadine saline solution. Applied Praveena to ulcer. Covered with 4x4 and herson. Patient given diabetic offloading shoe with peg assist insert. Maranda Echeverria Ma Referring Provider: WILL DIETZ [[id number]] Allergies As of Date: 07/27/2017 Noted Allergy Reaction MRI CONTRAST (GADOLINIUM-CONTAINI*01/03/2017 8 - GI Upset MUSHROOM 06/10/2016 10 - Anaphylaxis PEANUTS 06/10/2016 10 - Anaphylaxis Date Reviewed: 07/27/2017 Reviewed by: Brittney Cook RN - Fully Assessed Reason for Visit: Callus [Other] Primary Visit Diagnosis:Ulcer of toe of left foot, with fat layer exposed (HCC) [L97.522] Order(s):XR FOOT GENERAL 3V AP/LAT/OBL LT [[id number]] Order #: [id number] FUTURE KNEE WALKER [[id number]] Order #: [id number] CBC + DIFF [SQCBCDIF] Order #: [id number] FUTURE SED RATE WESTERGREN [SQWSR] Order #: [id number] FUTURE C-REACTIVE PROTEIN (CRP) [SQCRP] Order #: [id number] FUTURE Prescriptions as of 07/27/2017 Sig: CIPROFLOXACIN 250 MG TABLET Take 500 mg by mouth twice da* PROPRANOLOL 10 MG TABLET Take 1 tablet by mouth twice * LANCETS 28 GAUGE Test blood sugar(s) 1- 2 times* DULOXETINE 30 MG CAPSULE,SHERRY* Take 1 capsule by mouth once * METFORMIN ER 500 MG TABLET,EX* Take 2 tablets by mouth twice* ZOLPIDEM 5 MG TABLET Take 1 tablet by mouth at bed* COMPOUNDED PRESCRIPTION Promogran, use as directed, u* LISINOPRIL 2.5 MG TABLET Take 1 tablet by mouth once d* OXYBUTYNIN CHLORIDE ER 10 MG * Take 1 tablet by mouth once d* BLOOD SUGAR DIAGNOSTIC STRIPS Test blood sugar(s) 1- 2 times* HYDROXYZINE PAMOATE 25 MG CAP* Take 1 capsule by mouth three* BLOOD-GLUCOSE METER KIT Freestyle LITE Meter Kit - GABAPENTIN 300 MG CAPSULE Take 1 capsule by mouth three* Problem List As Of Date 07/27/2017 Noted Resolved Threatened , antepartum [O20.0] INVALID FOR*04/07/2011 Supervision of normal first [Z34.00] INVALID FOR*04/07/2011 Cyst of ovary [N83.209] INVALID FOR* Priority: C Depressive disorder, not elsewhere classified [*INVALID FOR*01/06/2016 Priority: A More... Anxiety [F41.9] INVALID FOR* Priority: A More... Recurrent UTI [N39.0] INVALID FOR* Priority: C Dysthymic disorder [F34.1] Priority: A More... Panic attacks [F41.0] Priority: A Neck pain [M54.2] INVALID FOR* Priority: M Cervical radiculopathy [M54.12] INVALID FOR* Priority: M Weakness of both upper extremities [R29.898] INVALID FOR* Priority: M More... Muscle weakness of lower extremity [M62.81] INVALID FOR* Priority: M More... 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 Morbid obesity ([facility]) [E66.01] INVALID FOR* Priority: B Chronic pain [G89.29] INVALID FOR* Priority: M Neurogenic bladder [N31.9] INVALID FOR* Priority: B Hydronephrosis, right [N13.30] INVALID FOR* Priority: C History of kidney stones [Z87.442] INVALID FOR* Priority: C Spina bifida ([facility]) [Q05.9] INVALID FOR* Priority: B Neurogenic bowel [K59.2] INVALID FOR* Priority: B Primary insomnia [F51.01] INVALID FOR* Priority: A Type 2 diabetes mellitus with proteinuria ([facility])*INVALID FOR* Priority: A Pyelonephritis [N12] INVALID FOR* Diabetic eye exam ([facility]) [E11.9, Z01.00] INVALID FOR* Priority: A More... Migraine without aura and without status migrai*INVALID FOR* Priority: A Type 2 diabetes mellitus with albuminuria ([facility])*INVALID FOR* Priority: A Well adult exam [Z00.00] INVALID FOR* Priority: E More... Ulcer of left foot ([facility]) [L97.529] INVALID FOR* Priority: M Paroxysmal SVT (supraventricular tachycardia) (*INVALID FOR* Priority: A More... Other instructions from your clinician: Apply Praveena every other day to ulcer of L foot Wear orthowedge shoe on left foot Use wheelchair, need to be non weight bearing to your L foot Xray and labs today - we will call with results Encounter Status:Closed by GAVIN GOMEZ DPM on 07/27/17 EMERGENCY DEPARTMENT Observed: 07/25/2017 Status: F Source: [place] SUMMARY 11:33 AM [facility] REPOSITORY [facility] Medical Records Department [address] [place] [address] Emergency Department Summary 07/25/17 1130 MR#: [id number] Acct: [id number] Name: DEBBY BAILON Rep #: [id number] : 1980 36 From: Bobby Lee MD PCP: Will Dietz MD Status: REG ER - ER Visit Summary Date of Service: 07/25/17 Chief Complaint: Abdominal pain History of Present Illness: The patient is a 36 F who presents with abdominal pain. She complains of about 1 week of diffuse nonfocal aching and cramping abdominal pain. She reports about 1-2 weeks of nausea. She has chronic urinary frequency and dysuria. She was seen a few days ago and checked for a UTI and that was unremarkable. She has noticed that she has had small hard stools over the past 1-2 weeks but no good bowel movement. No vomiting. No fever. Physical Examination: Afebrile vitals notable for heart rate 101 Heart regular Lungs clear Abdomen soft with some mild diffuse tenderness no guarding no rebound she is not distended Test Results: Laboratory studies notable for white blood cell count 12.1 creatinine 1.16 glucose 347. Anion gap is not elevated and bicarbonate is normal. Urinalysis normal and negative. Abdominal series shows a large amount of fecal material and no evidence of obstruction on my review. Emergency Department Course and Treatment: History examination of findings are consistent with constipation. She was advised to begin MiraLAX. She should follow-up with her primary care physician. She understands return for new or worsening symptoms. She was discharged. Treatment Plan: [] Disposition: Discharge Impression: Constipation This note was generated with EverTune dictation software. It may contain incorrect words, spelling, and punctuation that were not noted in review of the chart prior to signing ED Disposition - Plan for ED Patient: Chief Complaint: Abd Pain Referrals: Will Dietz MD [Primary Care Provider] - What to do if you have Problems For any increased pain, shortness of breath, bleeding, nausea or vomiting, chest pain, or any unexpected problems, contact your Primary Care Provider. Call [facility] ([phone]) or report to the closest Emergency Room. Call 911 if necessary. 07/25/17 1133 <Electronically signed by Bobby Lee MD> Date Bobby Lee MD Cosigner Signature (If Indicated): Date CC: Will Dietz MD DISCHARGE INSTRUCTION Observed: 07/25/2017 Status: F Source: [place] 11:33 [facility] REPOSITORY [facility] Medical Records Department [address] [place] [address] Discharge Instruction 07/25/17 1133 MR#: [id number] Acct: [id number] Name: DEBBY BAILON Rep #: [id number] : 1980 36 From: Bobby Lee MD PCP: Will Dietz MD Status: REG ER ED Disposition - Plan for ED Patient: Chief Complaint: Abd Pain Instructions: ED Constipation Referrals: Will Dietz MD [Primary Care Provider] - What to do if you have Problems For any increased pain, shortness of breath, bleeding, nausea or vomiting, chest pain, or any unexpected problems, contact your Primary Care Provider. Call [facility] ([phone]) or report to the closest Emergency Room. Call 911 if necessary. 07/25/17 1133 <Electronically signed by Bobby Lee MD> Date Bobby Lee MD Cosigner Signature (If Indicated): Date CC: Will Dietz MD CBC W/DIFF, AUTOMATED Collected: 07/25/2017 Status: F Source: [place] 10:27 AM [facility] REPOSITORY TYPE CODE TESTS RESULT OUT OF RANGE REFERENCE UNITS LAB L100.1000 4.4-11.0 K/mm3 High WBC 12.1 LAB L100.1200 4.2-5.4 M/mm3 Low RBC 4.15 LAB L100.1300 12.0-15.0 g/dl Normal HGB 12.2 LAB L100.1400 37-47 % Normal HCT 37.2 LAB L100.1500 81-99 fL Normal MCV 89.6 LAB L100.1600 27.0-32.0 pg Normal MCH 29.4 LAB L100.1700 32-36 g/gl Normal MCHC 32.8 LAB L100.1810 11.6-14.6 % Normal RDW CV 13.8 LAB L100.1820 35.1-43.9 fl High RDW SD 45.6 LAB L100.1900 150-450 K/mm3 Normal PLT 189 LAB L100.2000 6.2-12.0 fl Normal MPV 10.3 LAB L100.2100 47-70 % High NEUT% 70.2 LAB L100.2200 19-41 % Low LY% 18.0 LAB L100.2300 0-10 % Normal MONO% 8.7 LAB L100.2400 0-5 % Normal EO% 2.3 LAB L100.2500 0-1 % Normal BASO% 0.2 LAB L100.2550 0.0-0.9 % Normal IM GRAN % 0.600 Result Comment: IG% - Immature Granulocytes (promyelocytes, myelocytes and metamyelocytes) > 1% indicates that a LEFT SHIFT is Present. LAB L100.2620 2.0-7.7 X10 3/uL High Absolute Neut 8.5 LAB L100.2720 0.83-4.51 X10 3/ul Normal Absolute Lymph 2.18 Performed By: #### L100.0100 #### [facility] [address] [place], [address] COMPREHENSIVE METABOLIC Collected: 07/25/2017 Status: F Source: [place] MICHAUD 10:27 AM [facility] REPOSITORY TYPE CODE TESTS RESULT OUT OF RANGE REFERENCE UNITS LAB L501.0100 74-106 mg/dL High GLU 347 Result Comment: Glucose result greater than or equal to 200 mg/dL suggests DIABETES MELLITUS per A.D.A. criteria. Please note revised GLUCOSE reference range effective 2017. LAB L501.1000 7-18 mg/dL Normal BUN 11 LAB L501.1100 0.55-1.02 mg/dL High CREAT,SERUM 1.16 Result Comment: The validity of the calculated GFR AND GFRAA in patients over 70 years has not been determined. Clinical correlation is essential. LAB L501.1110 >60 mL/min Low EST GFR 56 Result Comment: Non- GFR Calc LAB L501.1115 >60 mL/min Normal EST GFR - AA 68 Result Comment: GFR Calc LAB L501.1255 ml/min Normal Estimated CRCL 51.08 LAB L501.1300 10-20 RATIO Low BUN/CRE 9.5 LAB L501.1500 6.4-8. g/dL Normal 2 T PROT 8.0 LAB L501.1800 3.2-5. g/dL Normal 0 ALB 3.4 LAB L501.1950 2.2-4. g/dL High 2 GLOB 4.6 LAB L501.2000 0.9-2. RATIO Low 4 A/G 0.7 LAB L501.2200 8.5-10 mg/dL Normal .1 CA 8.8 LAB L501.4100 15-37 U/L Normal AST 19 LAB L501.4305 45-117 U/L Normal ALK P 88 LAB L501.4405 13-56 U/L Normal ALT 33 Result Comment: Please note revised ALT reference range effective 2017. LAB L501.4600 0.20-1.00 mg/dL Normal T BILI 0.30 LAB L501.5300 136-145 mmol/L Low NA 135 LAB L501.5600 3.5-5.1 mmol/L Normal K 3.9 LAB L501.5900 98-107 mmol/L Normal CL 103 LAB L501.6100 21.0-32.0 mmol/L Normal CO2 28.0 LAB L501.6200 5-15 Low GAP 4 Performed By: #### L500.4050, L501.2450 #### [facility] [address] [place], [address] LIPASE Collected: 07/25/2017 Status: F Source: [place] 10:27 AM [facility] REPOSITORY TYPE CODE TESTS RESULT OUT OF RANGE REFERENCE UNITS LAB L501.2450 73-393 U/L Normal LIPASE 173 Performed By: #### L500.4050, L501.2450 #### [facility] [address] [place], [address] ,URINE Collected: 07/25/2017 Status: F Source: [place] 10:20 AM [facility] REPOSITORY Order Comment: Order Date: 07/25/17 TYPE CODE TESTS RESULT OUT OF REFERENCE UNITS RANGE LAB L400.8000 Negative Normal HCGUQUAL Negative Result Comment: Very dilute urine specimens, as indicated by a low specific gravity, may not contain sales and marketing representative levels of hCG. If is still suspected, a first morning urine specimen should be collected 48 hours later and tested. Performed By: #### L400.7600 #### [facility] [address] [place], [address] URINALYSIS, COMPLETE Collected: 07/25/2017 Status: F Source: [place] 10:20 AM [facility] REPOSITORY Order Comment: Order Date: 07/25/17 How was Urine Obtained? CLEAN CATCH TYPE CODE TESTS RESULT OUT OF RANGE REFERENCE UNITS LAB L400.3000 Yellow COLOR Normal Yellow LAB L400.3050 Clear Normal CLARITY Clear LAB L400.3200 Normal mg/dl High GLUCOSE, UR 1000 LAB L400.3300 Negative mg/dL Normal BILIRUBIN URINE Negative LAB L400.3400 Negative mg/dl Normal KETONE UR Negative LAB L400.3465 1.002-1.030 Normal SP.GR. DIPSTX 1.010 LAB L400.3550 5.0 - 8.0 pH UR Normal 6.0 LAB L400.3600 Negative mg/dl PROT Normal DIPSTX Negative LAB L400.3700 Normal mg/dl Normal UROBILI Normal LAB L400.3750 Negative Normal NITRITE UR Negative LAB L400.3780 Negative /ul High 10 OCCULT BLOOD-UR LAB L400.3800 Negative /ul LEUK Normal ESTERASE Negative LAB L400.4050 0-5 /hpf WBC 0 Normal SEEN LAB L400.4100 0-5 /hpf 0 Normal RBC-UA SEEN LAB L400.4150 5-10 /hpf SQUAM Normal EPI 0-5 SEEN LAB L400.4300 None Seen /hpf 0 Normal BACTERIA SEEN LAB L400.4350 <or=2+ /hpf 0 Normal MUCUS, URINE SEEN Performed By: #### L400.0001 #### [facility] [address] [place], [address] ACUTE ABDOMEN INC Observed: 07/25/2017 Status: F Source: [facility] 10:15 AM [facility] REPOSITORY [facility] Imaging Services [address] [place] [address] Acute Abdomen Inc Chest MR#: [id number] Acct: [id number] Name: DEBBY BAILON Rep #: [id number] : 1980 F 36 From: Stephan Sood MD PCP: Will Dietz MD Status: REG ER Study: Acute Abdomen Inc Chest Date of Exam: 07/25/17 Exam# [id number] Ordering Dr: Bobby Lee MD STUDY: X-RAY - ACUTE ABDOMINAL SERIES REASON FOR EXAM: Female, 36 years old. Abdominal pain. TECHNIQUE: Single view of the chest. Supine, and erect view(s) of the abdomen were obtained. COMPARISON: None. FINDINGS: Calcified granuloma in the right upper lobe. Normal size heart. Normal mediastinum and cristiano. Normal visualized pulmonary arteries. Normal visualized aortic arch and descending thoracic aorta. There is an abundance of fecal material throughout the colon. There is a 7 mm calcification in the left midabdomen most likely representing a calcified lymph node. The symptoms of spina bifida involving the L3-L4 and L5 vertebrae. RAD/Acute Abdomen Inc Chest IMPRESSION: Large amount of fecal material is seen in the colon. Electronically Signed: Stephan Sood MD at 11:15 EST Tel [phone], Service support , CC: Will Dietz MD; Bobby Lee MD Paper Rewinder Operator: Signed EMERGENCY DEPARTMENT Observed: 07/22/2017 Status: F Source: [place] SUMMARY 6:43 PM [facility] REPOSITORY [facility] Medical Records Department [address] [place] [address] Emergency Department Summary 07/22/17 1756 MR#: [id number] Acct: [id number] Name: DEBBY BAILON Rep #: [id number] : 1980 36 From: Dre Deal MD PCP: Will Dietz MD Status: REG ER - ER Visit Summary Date of Service: 07/22/17 Chief Complaint: Left foot pain radiating to knee and urinary symptoms History of Present Illness: The patient is a 36 F who was seen earlier this week for left foot pain. She states she has an appointment with her french comber. She denies fever, chills night sweats. She states the calluses black and she had bleeding from the callus. She denies fever, chills night sweats. She denies polyuria, polydipsia, polyphagia or nocturia. She denies any change in vision and specifically blurred vision. She denies trauma. She also reports dysuria, frequency, and urgency. She states she has back pain but cannot localize the back pain. She reports abdominal pain but cannot localize the abdominal pain. Physical Examination: Vital signs remarkable for blood pressure 162/97. She is not tachycardic, tachypnic or febrile. HEENT is unremarkable. Heart is regular without murmur, gallop or rub. S1 and S2 are normal. Lungs are clear to auscultation with good movement of air bilaterally. Patient has pain out of proportion to light tactile stimulus of the abdomen and back. There is no particular area of greatest discomfort. Midline well-healed surgical scar noted secondary to spina bifida. There is a callus plantar surface left foot near the MTP joint of the great toe. There is no bleeding. There is no redness, warmth, lymphangitis or popliteal lymphadenopathy. Test Results: UA was obtained and reveals glucose. There is no pyuria, hematuria or bacteria on microscopic examination of the urine. B GT is 187 Emergency Department Course and Treatment: Since she has diabetic a blood glucose test was obtained. Because of her urinary symptoms a UA was obtained. She requested pain medicine for her callus. Treatment Plan: Keep appointment with french comber and if she continues to have urologic symptoms follow-up with her primary care physician Dr. Will Dietz Disposition: Discharge to home Impression: 1. Left foot pain secondary to callus plantar surface 2. Hyperglycemia in type II diabetic This note was generated with EverTune dictation software. It may contain incorrect words, spelling, and punctuation that were not noted in review of the chart prior to signing ED Disposition - Plan for ED Patient: Disposition: Home or Assisted Living Chief Complaint: Wound Instructions: Treating Corns and Calluses, ED Hyperglycemia Diabetic Referrals: Will Dietz MD [Primary Care Provider] - As Needed Additional Instructions: Keep appointment with french comber to remove your callus. What to do if you have Problems For any increased pain, shortness of breath, bleeding, nausea or vomiting, chest pain, or any unexpected problems, contact your Primary Care Provider. Call [facility] ([phone]) or report to the closest Emergency Room. Call 911 if necessary. 07/22/17 0151 <Electronically signed by Dre Deal MD> Date Dre Deal MD Cosigner Signature (If Indicated): Date CC: Will Dietz MD BEDSIDE GLUCOSE Collected: 07/22/2017 Status: F Source: [place] 6:39 PM [facility] REPOSITORY TYPE CODE TESTS RESULT OUT OF REFERENCE UNITS RANGE LAB L501.080 70-110 mg/dL High BEDSIDE GLU 187 Result Comment: MANAGEMENT OF PATIENT CARE PER NURSING PROTOCOL Performed By: #### L501.080 #### [facility] Point of Care [address] [place], [place] [address] URINALYSIS, COMPLETE Collected: 07/22/2017 Status: F Source: [place] 6:00 PM [facility] REPOSITORY Order Comment: Order Date: 07/22/17 Has pt arrived? Y How was Urine Obtained? CLEAN CATCH TYPE CODE TESTS RESULT OUT OF RANGE REFERENCE UNITS LAB L400.3000 Yellow COLOR Normal Straw LAB L400.3050 Clear Normal CLARITY Sl. Cloudy LAB L400.3200 Normal mg/dl High GLUCOSE, UR 250 LAB L400.3300 Negative mg/dL Normal BILIRUBIN URINE Negative LAB L400.3400 Negative mg/dl Normal KETONE UR Negative LAB L400.3465 1.002-1.030 Normal SP.GR. DIPSTX 1.010 LAB L400.3550 5.0 - 8.0 pH UR Normal 7.0 LAB L400.3600 Negative mg/dl High PROT 15 DIPSTX LAB L400.3700 Normal mg/dl Normal UROBILI Normal LAB L400.3750 Negative Normal NITRITE UR Negative LAB L400.3780 Negative /ul Normal OCCULT BLOOD-UR Negative LAB L400.3800 Negative /ul LEUK Normal ESTERASE Negative LAB L400.4050 0-5 /hpf WBC Normal 0-5 SEEN LAB L400.4100 0-5 /hpf 0 Normal RBC-UA SEEN LAB L400.4150 5-10 /hpf SQUAM Normal EPI 0-5 SEEN LAB L400.4300 None Seen /hpf 0 Normal BACTERIA SEEN LAB L400.4350 <or=2+ /hpf 0 Normal MUCUS, URINE SEEN Performed By: #### L400.0001 #### [facility] [address] [place], [address] EMERGENCY DEPARTMENT Observed: 07/19/2017 Status: F Source: [place] SUMMARY 2:52 AM [facility] REPOSITORY [facility] Medical Records Department [address] [place] [address] Emergency Department Summary 07/18/17 1510 MR#: [id number] Acct: [id number] Name: DEBBY BAILON Rep #: [id number] : 1980 36 From: Celine Caputo MD PCP: Will Dietz MD Status: DEP ER - ER Visit Summary Date of Service: 07/18/17 Chief Complaint: Diabetic foot wound History of Present Illness: The patient is a 36 F patient presenting for evaluation secondary to a diabetic foot wound. Patient has a history diabetes, states that her had and does not look to her feet in approximately 4 days, and she started to notice some pain in her left foot today. She states that it has been associated with pain with walking, and some mild chills and a wound on the sole of her left foot. She does not recall any injuries. Review of systems otherwise negative. Physical Examination: Patient is afebrile, there is some triage tachycardia of 126 but upon my exam patient's heart rate was 90. Lower extremity exam shows evidence of a diabetic foot wound over the sole of the first metatarsal phalangeal joint. No evidence of surrounding erythema. No overlying warmth. Normal range of motion of the foot and ankle. Test Results: None indicated Emergency Department Course and Treatment: Patient presented secondary to a diabetic foot wound. She is afebrile, wound is relatively new within the last 4 days, and she is nontoxic-appearing I do not believe the workup or x-ray are necessary at this point. Patient will be started on a course of Cipro was instructed on strict foot care and follow-up with her french comber in the next 3 days. Disposition: Discharge Impression: 1. Diabetic foot wound This note was generated with EverTune dictation software. It may contain incorrect words, spelling, and punctuation that were not noted in review of the chart prior to signing ED Disposition - Plan for ED Patient: Chief Complaint: Wound Diagnosis: Wound, open, foot Instructions: ED Foot Care Diabetic Prescriptions: Ciprofloxacin [Cipro] 500 mg PO BID #14 tab Additional Instructions: Followup with your french comber within the next 3 days What to do if you have Problems For any increased pain, shortness of breath, bleeding, nausea or vomiting, chest pain, or any unexpected problems, contact your Primary Care Provider. Call [facility] ([phone]) or report to the closest Emergency Room. Call 911 if necessary. 07/19/17 0252 <Electronically signed by Celine Caputo MD> Date Celine Vargasignkeagan Signature (If Indicated): Date CC: Will Dietz MD STRESS TEST ECHO W/O Observed: 07/18/2017 Status: F Source: [place] CONTRAST 5:32 PM [facility] REPOSITORY [facility] Cardiovascular Services [address] [place] [address] Stress Test Echo W/Contrast MR#: [id number] Acct: [id number] Name: DEBBY BAILON Rep #: [id number] : 1980 36 From: Jaysno Alvarez MD Primary Care: Will Dietz MD Status: REG CLI Ordering Dr: Will Dietz MD Sex: F C Reason For Study: Chest Pain Stress Results Protocol: Nabeel Protocol Maximum Predicted HR: 185 bpm Target HR: 157 bpm% Max imum Predicted HR: 91 % DurationHeart Rate Stage (mm:ss) (bpm) BPCom ment Baseline 83 128/86 0.1 ML Definity Stage 1 3:00 15 1 144/82 Stage 2 1:31 16 9 / 0.1 ML definity Recoveryt 106 120/6 8 Stress Duration: 4:31 mm:ss Maximum Stress HR: 169 bpmM ETS: 7 Baseline Echocardiogram Findings Stress Echo Wall motion Data Resting WMIntermediate WMStress WM Resting Wall Motion Wall Motion Stress All segments Normal. All segments Hyperkinetic. Ejection Fraction 65 %. Ejection Fraction 75 %. Stress Results Heart rate response: C/W deconditioned heart rate response Blood pressure response: normal resting BP - appropriate response Arrhytmias: none Functional capacity: decreased Stopped secondary to: dyspnea; leg discomfort. EKG Data The baseline ECG displays normal sinus rhythm. The peak exercise ECG demonstrated somtic / motion artifact with no obvious ECG changes. Symptoms with Stress No c/o chest discomfort during exercise / recovery. Interpretation Summary Negative (Adequate) Stress Echocardiogram Ordering Physician: Will Dietz Referring Physician: Will Dietz Performed By: Nicole Price, RDCS, RVT 07/18/17 1731 Date Jayson Alvarez MD CC: Will Dietz MD Date Dictated: 07/18/17 1303 Date Transcribed: 07/18/171730 Paper Rewinder Operator: Signed ECHOCARDIOGRAM COMPLETE Observed: 06/28/2017 Status: F Source: [place] 2:20 PM [facility] REPOSITORY [facility] Cardiovascular Services [address] [place] [address] Echo Complete 06/28/17 1057 MR#: [id number] Acct: [id number] Name: DEBBY BAILON Rep #: [id number] : 1980 36 From: Nemesio Barriga MD Attending Dr: Will Dietz MD Status: REG CLI Ordering Dr: Will Dietz MD Date: 06/28/17 Location: [facility] Sex: F C Admitted: Reason For Study: chest pain Procedure This was a 2D Doppler, Color Flow transthoracic echocardiogram. Exam performed in department. Left Ventricle Normal size and thickness. The estimated ejection fraction is 65 %. Normal diastology for age. No regional wall motion abnormalities noted. Right Ventricle Normal size and thickness. Normal systolic function. Atria Normal left atrium. Normal right atrium. Normal atrial septum. Mitral Valve The mitral valve is structurally normal. No prolapse or stenosis seen. Tricuspid Valve Normal tricuspid valve. Trivial tricuspid valve insufficiency. Right ventricular systolic pressure estimated to be 32 mmHg. Aortic Valve Trisinus/trileaflet aortic valve. Trivial aortic valve insufficiency. Pulmonic Valve Normal pulmonic valve. Great Vessels Normal aortic root. Normal arch. Normal inferior vena cava. Inferior vena cava collapse with sniff. Pericardium/Pleural No pericardial effusion. MMode/2D Measurements AND Calculations LVIDd: 4.4 cm IVSd: 0.70 cm Ao root diam: 2.7 cm LVIDs: 3.1 cm LVPWd: 0.75 cm LA dimension: 3.9 cm RVDd: 2.8 cm FS: 30.4 % LAV(MOD-bp): 54.5 ml LA A4 area: 18.0 cm2 RA A4 area: 15.8 cm2 LAV(MOD-bp) Indexed: 26.8 ml/m2 LAV(MOD-sp2): 50.0 ml LAV(MOD-sp4): 56.1 ml Doppler Measurements AND Calculations MV E max elvin: 87.9 cm/sec Lat Peak E' Elvin: 11.4 cm/sec Med Peak E' Elvin: 8.8 cm/sec MV A max elvin: 78.2 cm/sec E/E' lat: 7.7 E/E' med: 10.0 MV E/A: 1.1 Ao V2 max: 117.5 cm/sec LV V1 max: 94.8 cm/sec PA V2 max: 104.1 cm/sec Ao max P.5 mmHg LV V1 max P.6 mmHg PI end-d elvin: 64.9 cm/sec TR max elvin: 244.2 cm/sec TR max P.0 mmHg Interpretation Summary The estimated ejection fraction is 65 %. Normal diastology for age. Trivial tricuspid valve insufficiency. Right ventricular systolic pressure estimated to be 32 mmHg. There is no comparison study available. Ordering Physician: Will Dietz Performed By: Nicole Price RDCS, RVT 06/28/17 1419 Date Nemesio Barriga MD CC: Will Dietz MD Date Dictated: 06/28/17 1057 Date Transcribed: 06/28/171418 Paper Rewinder Operator: Signed ISAEL Observed: 06/23/2017 Status: COMPLETED Source: [place] 11:[address] [facility] REPOSITORY Office Visit (FAMPWS) DEBBY BAILON ([id number]) 1980 F Date Time Provider Department 06/23/17 11:00 AM WILL DIETZPWS During your visit today, we recorded the following information about you: Pulse Respiration Blood pressure Weight 74/minute 16/minute 122/86 108 kg Height Last Period 1.562 m 05/16/17 Will Dietz MD 06/23/2017 2:41 PM Signed Chief Complaint Patient presents with: Recheck: 4 months HPI Debby Bailon is a 36 year old female who presents here today for Chronic Medical Conditions.. Patient with Hx as reviewed and documanted below. Has not had any recent hospitalizations for her frequent pyelo infections. Has been ok Past medical history, appointments, medications, allergies reviewed. Previous Medical History PAST MEDICAL HISTORY Diagnosis Date - Abnormal sensation of left upper and lower extremity 08/07/2013 - Anxiety - Arthritis started age 19 - Cervical radiculopathy 05/02/2013 - Chronic pain 02/12/2015 - Depressive disorder, not elsewhere classified 11/28/2011 [facility] - DJD (degenerative joint disease), thoracic - Dysthymic disorder Depression (non-psychotic), sees BRIM SHAPER at [facility]. 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 Seeing Dr. Gregg - Numbness and tingling of left arm and leg 08/07/2013 - Panic attacks - Recurrent UTI 11/28/2011 - Spina bifida (HCC) 01/06/2016 - Type 2 diabetes mellitus without complication ([facility]) 02/12/2015 - Urinary tract infection, site not specified Recurrent UTI's - Weakness of left upper extremity 08/07/2013 Previous Surgical History PAST SURGICAL HISTORY Procedure Laterality Date - PAST SURGICAL HISTORY OF cholecystectomy - PAST SURGICAL HISTORY OF 09/2012 back surgery x2 - PAST SURGICAL HISTORY OF Left ANDamp; 02/2014 foot x2 - PAST SURGICAL HISTORY OF 07/2015 Knapp stoma Family History FAMILY HISTORY Problem Relation Age of Onset - Arthritis Mother - Diabetes Mother - Heart Mother - Hypertension Mother - Lipids Mother - Stroke Mother - Thyroid Mother - Cancer Maternal Grandmother LIVER CANCER - Cancer Maternal Uncle - Cancer Maternal Uncle Patient Allergies ALLERGIES Allergen Reactions - Mri Contrast [Gadol* GI Upset - Mushroom Anaphylaxis - Peanuts Anaphylaxis Current Medications Current Outpatient Prescriptions on File Prior to Visit: metFORMIN ER (GLUCOPHAGE XR) 500 mg 24 hr tablet Take 1 tablet by mouth twice daily. lisinopril 2.5 mg tablet Take 1 tablet by mouth once daily. oxybutynin ER (DITROPAN XL) 10 mg 24 hr tablet Take 1 tablet by mouth once daily. blood sugar diagnostic (FREESTYLE LITE STRIPS) test strip Test blood sugar(s) 1-2 times daily. Dx: 250.0. Insulin: No DULoxetine (CYMBALTA) 20 mg capsule Take 1 capsule by mouth twice daily. [facility] hydrOXYzine pamoate (VISTARIL) 25 mg capsule Take 1 capsule by mouth three times daily as needed. [facility] zolpidem (AMBIEN) 5 mg tablet Take 1 tablet by mouth at bedtime as needed for Sedation. [facility] Blood-Glucose Meter (FREESTYLE LITE METER) monitoring kit Freestyle LITE Meter Kit - lancets (FREESTYLE LANCETS) 28 gauge misc Test blood sugar(s) 1-2 times daily. Dx: 250.0. Insulin: No gabapentin (NEURONTIN) 300 mg capsule Take 1 capsule by mouth three times daily. COMPOUNDED PRESCRIPTION Promogran, use as directed, ulcer of left 1st metatarsal, measurement: [id number], Dx: E11.621, L97.522 No current facility-administered medications on file prior to visit. 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 Has had increased shortness of breath During inactivity and activity CARDIOVASCULAR: has been having sporadic chest pain during rest and activity and worse with activity. Some increased leg swelling. Still with palpitations but not as frequent. GI: No nausea, vomiting, or diarrhea and No heartburn or reflux symptoms ENDOCRINE: FBS: 115's, No low BS symptoms NEURO: No history of syncope, paralysis, seizures or tremors.. Has had an increase in migraines. Psych: Has been depressed for several weeks. Not wanting to do anything and for the most part just laying in bed. [facility] Has been off her Ambien because of this and not sleeping well. EXAM: BP 122/86 (BP Site: Left Arm, BP Position: Sitting, BP Cuff Size: Large Adult) Pulse 74 Resp 16 Ht 156.2 cm (5' 1.5ANDquot;) Wt 108 kg (238 lb) LMP 05/16/2017 BMI 44.24 kg/m2 General Appearance: Well appearing, alert, in no acute distress, well-hydrated, well nourished., Morbidly obese. Eyes: Anicteric sclera. Pupils are equally round and reactive to light. Extraocular movements are intact. . Oropharynx: Lips, mucosa, and tongue normal, teeth and gums normal, oropharynx normal. Neck: Supple, no adenopathy; thyroid symmetric, normal size, no bruits. Lungs: Lungs clear to auscultation. No wheezing, rhonchi, rales. Heart: RRR without murmur, gallop, or rubs. No ectopy. Abdomen: Normal abdominal exam, Abdomen soft, non-tender. Bowel sounds normal. No masses, organomegaly. Extremities: No deformities, edema, skin discoloration . Musculoskeletal: Muscular strength intact, No joint swelling, deformity, or tenderness. Patient has been having increased pain in her upper thighs. Peripheral Pulses: Normal. Neurologic: Gait normal. Reflexes normal and symmetric. Sensation intact except for in the lower half of the lower legs which has been chronic. Strength testing is at her baseline with her upper extremities and left lower extremity being weaker. Crainal nerves 2-12 intact.. Health Maintenance List HPV EVERY 5 YEARS due on 11/13/2011 PAP EVERY 5 YEARS due on 01/07/2016 HBA1C due on 11/30/2017 DILATED RETINAL EXAM due on 01/25/2018 DIABETIC FOOT EXAM due on 02/21/2018 LDL due on 06/02/2018 TETANUS due on 09/09/2019 ONE PNEUMOVAX PRIOR TO AGE 65 Completed INFLUENZA Completed Data reviewed In Office EKG showed NSR with no acute changes. . Component Latest Ref Rng ANDamp; Units 01/27/2017 06/02/2017 06/16/2017 WBC 3.70 - 11.00 k/uL 9.79 RBC 3.90 - 5.20 m/uL 4.42 Hemoglobin 11.5 - 15.5 g/dL 12.8 Hematocrit 36.0 - 46.0 % 40.6 MCV 80.0 - 100.0 fL 91.9 MCH 26.0 - 34.0 pG 29.0 MCHC 30.5 - 36.0 g/dL 31.5 RDW-CV 11.5 - 15.0 % 13.5 Platelet Count 150 - 400 k/uL 242 MPV 9.0 - 12.7 fL 12.1 Neut% % 63.9 Abs Neut (ANC) 1.45 - 7.50 k/uL 6.25 Lymph% % 25.6 Abs Lymph 1.00 - 4.00 k/uL 2.51 Bradley% % 7.5 Abs Bradley ANDlt;0.87 k/uL 0.73 Eosin% % 2.1 Abs Eosin ANDlt;0.46 k/uL 0.21 Baso% % 0.9 Abs Baso ANDlt;0.11 k/uL 0.09 Nucleated Reds 0 /100 WBC 0.0 Absolute nRBC ANDlt;0.01 k/uL ANDlt;0.01 Diff Type Auto Diff Protein, Total 6.3 - 8.0 g/dL 8.1 (H) 7.4 Albumin 3.9 - 4.9 g/dL 4.5 3.9 Calcium 8.5 - 10.2 mg/dL 9.5 9.3 Bilirubin, Total 0.2 - 1.3 mg/dL 0.2 0.2 Alkaline Phosphatase 32 - 117 U/L 73 73 AST 13 - 35 U/L 24 36 (H) Glucose 74 - 99 mg/dL 185 (H) 283 (H) BUN 7 - 21 mg/dL 10 11 Creatinine 0.58 - 0.96 mg/dL 0.97 (H) 0.75 Sodium 136 - 144 mmol/L 136 137 Potassium 3.7 - 5.1 mmol/L 3.8 4.3 Chloride 97 - 105 mmol/L 99 99 CO2 22 - 30 mmol/L 25 22 Anion Gap 9 - 18 mmol/L 12 16 ALT 7 - 38 U/L 25 43 (H) eGFR- ANDgt;60 ANDgt;60 eGFR-All Other Races . ANDgt;60 ANDgt;60 Triglyceride 30 - 149 mg/dL 156 (H) 71 Cholesterol, Total 100 - 199 mg/dL 170 145 HDL Cholesterol ANDgt;55 mg/dL 36 (L) 41 (L) VLDL Cholesterol 6 - 40 mg/dL 31 14 LDL Cholesterol 60 - 129 mg/dL 103 90 Fasting Time hrs 14 12 TC:HDL Ratio 1.00 - 5.00 4.72 3.54 LDL:HDL Ratio 0.50 - 3.55 2.86 2.20 Non HDL Cholesterol 90 - 159 mg/dL 134 104 Creatinine, Ur Random (UCRR) 20 - 300 mg/dL 62.0 Albumin, Urine Random 0.0 - 23.0 mg/L 20.2 Albumin/Creat Ratio 0 - 30 mg/g 33 (H) Hemoglobin A1C 4.3 - 5.6 % 7.2 (H) 8.1 (H) Estimated Average Glucose mg/dL 160 186 Magnesium 1.7 - 2.3 mg/dL 2.0 CRP ANDlt;0.9 mg/dL 0.6 CK 42 - 196 U/L 80 TSH 0.400 - 5.500 uU/mL 0.772 Free T4 0.9 - 1.7 ng/dL 1.1 WSR 0 - 20 mm/hr 35 (H) A/P ASSESSMENT/PLAN: 1. Type 2 diabetes mellitus without complication, without long-term current use of insulin (HCC) - ICD9: 250.00, ICD10: E11.9 (primary diagnosis) uncontrolled - Increase metformin (Glucophage) 2. 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 Atypical chest pain - ICD9: 786.59, ICD10: R07.89 - check - ECG COMPLETE W INTERPRETATION - ECHO - STRESS REGULAR W/TREAD - Check 48 hr Halter. 5. Palpitations - ICD9: 785.1, ICD10: R00.2 Check - ECG COMPLETE W INTERPRETATION - ECHO - STRESS REGULAR W/TREAD- - Check 48 hr Halter. 6. CASTELAN (dyspnea on exertion) - ICD9: 786.09, ICD10: R06.09 Check - ECG COMPLETE W INTERPRETATION - ECHO - STRESS REGULAR W/TREAD - SPIROMETRY - BASELINE AND POST DILATOR - Check 48 hr Halter. 7. Encounter for gynecological examination - ICD9: V72.31, ICD10: Z01.419 - CONSULT TO HEALTH TECHNICAL WRITER 8. Neuropathy (HCC) - ICD9: 355.9, ICD10: G62.9 - Cont gabapentin 9. Dysthymic disorder - ICD9: 300.4, ICD10: F34.1 - Patient to continue to [facility]. Will increase her cymbalta to 30 mg a day 10. Anxiety - ICD9: 300.00, ICD10: F41.9 - as above 11. Panic attacks - ICD9: 300.01, ICD10: F41.0 - as above 12. Primary insomnia - ICD9: 307.42, ICD10: F51.01 - as above - Refilled her Ambien 13. Migraine without aura and without status migrainosus, not intractable - ICD9: 346.10, ICD10: G43.009 - Will start propranolol 10 mg a day. 14. Lipomeningocele (HCC) - ICD9: 741.90, ICD10: Q05.9 - Advise to see Neuro about her leg pains to make sure not a recurrence of this issue. 15. Morbid obesity (HCC) - ICD9: 278.01, ICD10: E66.01 - patient to work on diet and exercise 16. Spina bifida with hydrocephalus, unspecified spinal region (HCC) - ICD9: 741.00, ICD10: Q05.4 - as above Signed Prescriptions Disp Refills lancets (FREESTYLE LANCETS) 28 gauge misc 100 Each 11 Sig: Test blood sugar(s) 1-2 times daily. Dx: 250.0. Insulin: No CODIE: No DULoxetine (CYMBALTA) 30 mg capsule 30 capsule 5 Sig: Take 1 capsule by mouth once daily. metFORMIN ER (GLUCOPHAGE XR) 500 mg 24 hr tablet 120 tablet 5 Sig: Take 2 tablets by mouth twice daily. CODIE: No propranolol (INDERAL) 10 mg tablet 30 tablet 5 Sig: Take 1 tablet by mouth once daily. F/u in 4 months routine check CMP, FLP and A1c prior. Time with patient face to face was 40 min MD Will Sinha MD 06/23/2017 11:51 AM Signed Please get fasting labs on or after 10/06/2017 prior to next visit. 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 Dx: 250.0. Insulin: NoDisp: 100 EachRfl: 11 CONSULT TO HEALTH TECHNICAL WRITER [[id number]] Order #: [id number]: 1 ECG COMPLETE W INTERPRETATION [ECG01] Order #: [id number] FUTURE ECHO [040912] Order #: [id number]: 1 FUTURE STRESS REGULAR W/TREAD [[id number]] Order #: [id number]: 1 SPIROMETRY - BASELINE AND POST DILATOR [[id number]] Order #: [id number] FUTURE DULoxetine (CYMBALTA) 30 mg capsuleTake 1 capsule by mouth once daily.Disp: 30 capsuleRfl: 5 metFORMIN ER (GLUCOPHAGE XR) 500 mg 24 hr tabletTake 2 tablets by mouth twice daily.Disp: 120 tabletRfl: 5 propranolol (INDERAL) 10 mg tabletTake 1 tablet by mouth once daily.Disp: 30 tabletRfl: 5 HOLTER MONITOR 48 HOUR [[id number]] Order #: [id number] FUTURE COMP METABOLIC PANEL [SQCMP] Order #: [id number] FUTURE HGB A1C [UKICK8M] Order #: [id number] FUTURE LIPID PANEL BASIC [SQLIPB] Order #: [id number] FUTURE zolpidem (AMBIEN) 5 mg tabletTake 1 tablet by mouth at bedtime as needed for Sedation for up to 60 days. [facility] tabletRfl: 1 Prescriptions as of 06/23/2017 Sig: LANCETS 28 GAUGE Test blood sugar(s) 1- 2 times* METFORMIN ER 500 MG TABLET,EX* Take 2 tablets by mouth twice* ZOLPIDEM 5 MG TABLET Take 1 tablet by mouth at bed* LISINOPRIL 2.5 MG TABLET Take 1 tablet by mouth once d* OXYBUTYNIN CHLORIDE ER 10 MG * Take 1 tablet by mouth once d* BLOOD SUGAR DIAGNOSTIC STRIPS Test blood sugar(s) 1- 2 times* HYDROXYZINE PAMOATE 25 MG CAP* Take 1 capsule by mouth three* BLOOD-GLUCOSE METER KIT Freestyle LITE Meter Kit - GABAPENTIN 300 MG CAPSULE Take 1 capsule by mouth three* DULOXETINE 30 MG CAPSULE,SHERRY* Take 1 capsule by mouth once * PROPRANOLOL 10 MG TABLET Take 1 tablet by mouth once d* COMPOUNDED PRESCRIPTION Promogran, use as directed, u* Problem List As Of Date 06/23/2017 Noted Resolved Threatened , antepartum [O20.0] INVALID FOR*04/07/2011 Supervision of normal first [Z34.00] INVALID FOR*04/07/2011 Cyst of ovary [N83.209] INVALID FOR* Priority: C Depressive disorder, not elsewhere classified [*INVALID FOR*01/06/2016 Priority: A More... Anxiety [F41.9] INVALID FOR* Priority: A More... Recurrent UTI [N39.0] INVALID FOR* Priority: C Dysthymic disorder [F34.1] Priority: A More... Panic attacks [F41.0] Priority: A Neck pain [M54.2] INVALID FOR* Priority: M Cervical radiculopathy [M54.12] INVALID FOR* Priority: M Weakness of both upper extremities [R29.898] INVALID FOR* Priority: M More... Muscle weakness of lower extremity [M62.81] INVALID FOR* Priority: M More... 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 Morbid obesity ([facility]) [E66.01] INVALID FOR* Priority: B Chronic pain [G89.29] INVALID FOR* Priority: M Neurogenic bladder [N31.9] INVALID FOR* Priority: B Hydronephrosis, right [N13.30] INVALID FOR* Priority: C History of kidney stones [Z87.442] INVALID FOR* Priority: C Spina bifida ([facility]) [Q05.9] INVALID FOR* Priority: B Neurogenic bowel [K59.2] INVALID FOR* Priority: B Primary insomnia [F51.01] INVALID FOR* Priority: A Type 2 diabetes mellitus with proteinuria ([facility])*INVALID FOR* Priority: A Pyelonephritis [N12] INVALID FOR* Diabetic eye exam ([facility]) [E11.9, Z01.00] INVALID FOR* Priority: A More... Migraine without aura and without status migrai*INVALID FOR* Priority: A Type 2 diabetes mellitus with albuminuria ([facility])*INVALID FOR* Priority: A Well adult exam [Z00.00] INVALID FOR* Priority: E More... Ulcer of left foot ([facility]) [L97.529] INVALID FOR* Priority: M Other instructions from your clinician: Please get fasting labs on or after 10/06/2017 prior to next visit. Prescriptions ordered this encounter Disp Refills Start End METFORMIN ER 500 MG TABLET,EXTENDED * 60 t* 5 06/23/2017 06/23/2017 Route: ORAL Sig: Take 1 tablet by mouth twice daily. LANCETS 28 GAUGE 100 * 11 06/23/2017 Sig: Test blood sugar(s) 1-2 times daily. Dx: 250.0. Insulin: No DULOXETINE 30 MG CAPSULE,DELAYED REL* 30 c* 5 06/23/2017 Route: ORAL Sig: Take 1 capsule by mouth once daily. METFORMIN ER 500 MG TABLET,EXTENDED * 120 * 5 06/23/2017 Route: ORAL Sig: Take 2 tablets by mouth twice daily. PROPRANOLOL 10 MG TABLET 30 t* 5 06/23/2017 Route: ORAL Sig: Take 1 tablet by mouth once daily. ZOLPIDEM 5 MG TABLET 30 t* 1 06/23/2017 08/22/2017 Class: Call Rx Route: ORAL Sig: Take 1 tablet by mouth at bedtime as needed for Sedation for up to 60 days. [facility] Medications Discontinued During This Encounter metFORMIN ER (GLUCOPHAGE XR) 500 mg * 60 t* 5 10/18/2016 06/23/2017 Route: ORAL Sig: Take 1 tablet by mouth twice daily. Disc: Reason for discontinue is not on file. lancets (FREESTYLE LANCETS) 28 gauge* 100 * 11 02/24/2015 06/23/2017 Sig: Test blood sugar(s) 1-2 times daily. Dx: 250.0. Insulin: No Disc: Reason for discontinue is not on file. DULoxetine (CYMBALTA) 20 mg capsule 0 02/17/2016 06/23/2017 Class: Med Update Route: ORAL Sig: Take 1 capsule by mouth twice daily. [facility] Disc: Reason for discontinue is not on file. metFORMIN ER (GLUCOPHAGE XR) 500 mg * 60 t* 5 06/23/2017 06/23/2017 Route: ORAL Sig: Take 1 tablet by mouth twice daily. Disc: Reason for discontinue is not on file. zolpidem (AMBIEN) 5 mg tablet 0 02/17/2016 06/23/2017 Class: Med Update Route: ORAL Sig: Take 1 tablet by mouth at bedtime as needed for Sedation. [facility] Disc: Reason for discontinue is not on file. Disposition: Return in about 4 months (around 10/21/2017) for rouitne. Follow-up and Disposition History Recorded Encounter Status:Closed by WILL DIETZ on 06/23/17 PROGRESS Observed: 06/23/2017 Status: COMPLETED Source: [place] 10:54 AM [facility] REPOSITORY HNO ID: [id number] Author: Will Dietz Service: (none) Author Type: Physician Type: Progress Notes Filed: 06/23/2017 2:41 PM Note Text: Chief Complaint Patient presents with: Recheck: 4 months HPI Debby Bailon is a 36 year old female who presents here today for Chronic Medical Conditions.. Patient with Hx as reviewed and documanted below. Has not had any recent hospitalizations for her frequent pyelo infections. Has been ok Past medical history, appointments, medications, allergies reviewed. Previous Medical History PAST MEDICAL HISTORY Diagnosis Date - Abnormal sensation of left upper and lower extremity 08/07/2013 - Anxiety - Arthritis started age 19 - Cervical radiculopathy 05/02/2013 - Chronic pain 02/12/2015 - Depressive disorder, not elsewhere classified 11/28/2011 [facility] - DJD (degenerative joint disease), thoracic - Dysthymic disorder Depression (non-psychotic), sees BRIM SHAPER at [facility]. 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 - Lumbago 02/12/2015 - Migraine - Morbid obesity (HCC) 02/12/2015 - Muscle weakness of left lower extremity 08/07/2013 - Neck pain 05/02/2013 - Neurogenic bladder 02/12/2015 - Neurogenic bladder - Neurogenic bowel 01/06/2016 - Neuropathy (HCC) 02/12/2015 post back surgery with secondary infection. Seeing Dr. Gregg - Numbness and tingling of left arm and leg 08/07/2013 - Panic attacks - Recurrent UTI 11/28/2011 - Spina bifida (HCC) 01/06/2016 - Type 2 diabetes mellitus without complication (HCC) 02/12/2015 - Urinary tract infection, site not specified Recurrent UTI's - Weakness of left upper extremity 08/07/2013 Previous Surgical History PAST SURGICAL HISTORY Procedure Laterality Date - PAST SURGICAL HISTORY OF cholecystectomy - PAST SURGICAL HISTORY OF 09/2012 back surgery x2 - PAST SURGICAL HISTORY OF Left AND 02/2014 foot x2 - PAST SURGICAL HISTORY OF 07/2015 Knapp stoma Family History FAMILY HISTORY Problem Relation Age of Onset - Arthritis Mother - Diabetes Mother - Heart Mother - Hypertension Mother - Lipids Mother - Stroke Mother - Thyroid Mother - Cancer Maternal Grandmother LIVER CANCER - Cancer Maternal Uncle - Cancer Maternal Uncle Patient Allergies ALLERGIES Allergen Reactions - Mri Contrast [Gadol* GI Upset - Mushroom Anaphylaxis - Peanuts Anaphylaxis Current Medications Current Outpatient Prescriptions on File Prior to Visit: metFORMIN ER (GLUCOPHAGE XR) 500 mg 24 hr tablet Take 1 tablet by mouth twice daily. lisinopril 2.5 mg tablet Take 1 tablet by mouth once daily. oxybutynin ER (DITROPAN XL) 10 mg 24 hr tablet Take 1 tablet by mouth once daily. blood sugar diagnostic (FREESTYLE LITE STRIPS) test strip Test blood sugar(s) 1-2 times daily. Dx: 250.0. Insulin: No DULoxetine (CYMBALTA) 20 mg capsule Take 1 capsule by mouth twice daily. [facility] hydrOXYzine pamoate (VISTARIL) 25 mg capsule Take 1 capsule by mouth three times daily as needed. [facility] zolpidem (AMBIEN) 5 mg tablet Take 1 tablet by mouth at bedtime as needed for Sedation. [facility] Blood-Glucose Meter (FREESTYLE LITE METER) monitoring kit Freestyle LITE Meter Kit - lancets (FREESTYLE LANCETS) 28 gauge misc Test blood sugar(s) 1-2 times daily. Dx: 250.0. Insulin: No gabapentin (NEURONTIN) 300 mg capsule Take 1 capsule by mouth three times daily. COMPOUNDED PRESCRIPTION Promogran, use as directed, ulcer of left 1st metatarsal, measurement: [id number], Dx: E11.621, L97.522 No current facility-administered medications on file prior to visit. 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 Has had increased shortness of breath During inactivity and activity CARDIOVASCULAR: has been having sporadic chest pain during rest and activity and worse with activity. Some increased leg swelling. Still with palpitations but not as frequent. GI: No nausea, vomiting, or diarrhea and No heartburn or reflux symptoms ENDOCRINE: FBS: 115's, No low BS symptoms NEURO: No history of syncope, paralysis, seizures or tremors.. Has had an increase in migraines. Psych: Has been depressed for several weeks. Not wanting to do anything and for the most part just laying in bed. [facility] Has been off her Ambien because of this and not sleeping well. EXAM: BP 122/86 (BP Site: Left Arm, BP Position: Sitting, BP Cuff Size: Large Adult) Pulse 74 Resp 16 Ht 156.2 cm (5' 1.5) Wt 108 kg (238 lb) LMP 05/16/2017 BMI 44.24 kg/m2 General Appearance: Well appearing, alert, in no acute distress, well-hydrated, well nourished., Morbidly obese. Eyes: Anicteric sclera. Pupils are equally round and reactive to light. Extraocular movements are intact. . Oropharynx: Lips, mucosa, and tongue normal, teeth and gums normal, oropharynx normal. Neck: Supple, no adenopathy; thyroid symmetric, normal size, no bruits. Lungs: Lungs clear to auscultation. No wheezing, rhonchi, rales. Heart: RRR without murmur, gallop, or rubs. No ectopy. Abdomen: Normal abdominal exam, Abdomen soft, non-tender. Bowel sounds normal. No masses, organomegaly. Extremities: No deformities, edema, skin discoloration . Musculoskeletal: Muscular strength intact, No joint swelling, deformity, or tenderness. Patient has been having increased pain in her upper thighs. Peripheral Pulses: Normal. Neurologic: Gait normal. Reflexes normal and symmetric. Sensation intact except for in the lower half of the lower legs which has been chronic. Strength testing is at her baseline with her upper extremities and left lower extremity being weaker. Crainal nerves 2-12 intact.. Health Maintenance List HPV EVERY 5 YEARS due on 11/13/2011 PAP EVERY 5 YEARS due on 01/07/2016 HBA1C due on 11/30/2017 DILATED RETINAL EXAM due on 01/25/2018 DIABETIC FOOT EXAM due on 02/21/2018 LDL due on 06/02/2018 TETANUS due on 09/09/2019 ONE PNEUMOVAX PRIOR TO AGE 65 Completed INFLUENZA Completed Data reviewed In Office EKG showed NSR with no acute changes. . Component Latest Ref Rng AND Units 01/27/2017 06/02/2017 06/16/2017 WBC 3.70 - 11.00 k/uL 9.79 RBC 3.90 - 5.20 m/uL 4.42 Hemoglobin 11.5 - 15.5 g/dL 12.8 Hematocrit 36.0 - 46.0 % 40.6 MCV 80.0 - 100.0 fL 91.9 MCH 26.0 - 34.0 pG 29.0 MCHC 30.5 - 36.0 g/dL 31.5 RDW-CV 11.5 - 15.0 % 13.5 Platelet Count 150 - 400 k/uL 242 MPV 9.0 - 12.7 fL 12.1 Neut% % 63.9 Abs Neut (ANC) 1.45 - 7.50 k/uL 6.25 Lymph% % 25.6 Abs Lymph 1.00 - 4.00 k/uL 2.51 Bradley% % 7.5 Abs Bradley <0.87 k/uL 0.73 Eosin% % 2.1 Abs Eosin <0.46 k/uL 0.21 Baso% % 0.9 Abs Baso <0.11 k/uL 0.09 Nucleated Reds 0 /100 WBC 0.0 Absolute nRBC <0.01 k/uL <0.01 Diff Type Auto Diff Protein, Total 6.3 - 8.0 g/dL 8.1 (H) 7.4 Albumin 3.9 - 4.9 g/dL 4.5 3.9 Calcium 8.5 - 10.2 mg/dL 9.5 9.3 Bilirubin, Total 0.2 - 1.3 mg/dL 0.2 0.2 Alkaline Phosphatase 32 - 117 U/L 73 73 AST 13 - 35 U/L 24 36 (H) Glucose 74 - 99 mg/dL 185 (H) 283 (H) BUN 7 - 21 mg/dL 10 11 Creatinine 0.58 - 0.96 mg/dL 0.97 (H) 0.75 Sodium 136 - 144 mmol/L 136 137 Potassium 3.7 - 5.1 mmol/L 3.8 4.3 Chloride 97 - 105 mmol/L 99 99 CO2 22 - 30 mmol/L 25 22 Anion Gap 9 - 18 mmol/L 12 16 ALT 7 - 38 U/L 25 43 (H) eGFR- >60 >60 eGFR-All Other Races . >60 >60 Triglyceride 30 - 149 mg/dL 156 (H) 71 Cholesterol, Total 100 - 199 mg/dL 170 145 HDL Cholesterol >55 mg/dL 36 (L) 41 (L) VLDL Cholesterol 6 - 40 mg/dL 31 14 LDL Cholesterol 60 - 129 mg/dL 103 90 Fasting Time hrs 14 12 TC:HDL Ratio 1.00 - 5.00 4.72 3.54 LDL:HDL Ratio 0.50 - 3.55 2.86 2.20 Non HDL Cholesterol 90 - 159 mg/dL 134 104 Creatinine, Ur Random (UCRR) 20 - 300 mg/dL 62.0 Albumin, Urine Random 0.0 - 23.0 mg/L 20.2 Albumin/Creat Ratio 0 - 30 mg/g 33 (H) Hemoglobin A1C 4.3 - 5.6 % 7.2 (H) 8.1 (H) Estimated Average Glucose mg/dL 160 186 Magnesium 1.7 - 2.3 mg/dL 2.0 CRP <0.9 mg/dL 0.6 CK 42 - 196 U/L 80 TSH 0.400 - 5.500 uU/mL 0.772 Free T4 0.9 - 1.7 ng/dL 1.1 WSR 0 - 20 mm/hr 35 (H) A/P ASSESSMENT/PLAN: 1. Type 2 diabetes mellitus without complication, without long-term current use of insulin (HCC) - ICD9: 250.00, ICD10: E11.9 (primary diagnosis) uncontrolled - Increase metformin (Glucophage) 2. 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) - ICD9: 250.40, 791.0, ICD10: E11.29, R80.9 uncontrolled - Increase metformin (Glucophage) - BP goal of <130/80 - LDL goal of <100 3. 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 Atypical chest pain - ICD9: 786.59, ICD10: R07.89 - check - ECG COMPLETE W INTERPRETATION - ECHO - STRESS REGULAR W/TREAD - Check 48 hr Halter. 5. Palpitations - ICD9: 785.1, ICD10: R00.2 Check - ECG COMPLETE W INTERPRETATION - ECHO - STRESS REGULAR W/TREAD- - Check 48 hr Halter. 6. CASTELAN (dyspnea on exertion) - ICD9: 786.09, ICD10: R06.09 Check - ECG COMPLETE W INTERPRETATION - ECHO - STRESS REGULAR W/TREAD - SPIROMETRY - BASELINE AND POST DILATOR - Check 48 hr Halter. 7. Encounter for gynecological examination - ICD9: V72.31, ICD10: Z01.419 - CONSULT TO HEALTH TECHNICAL WRITER 8. Neuropathy (HCC) - ICD9: 355.9, ICD10: G62.9 - Cont gabapentin 9. Dysthymic disorder - ICD9: 300.4, ICD10: F34.1 - Patient to continue to [facility]. Will increase her cymbalta to 30 mg a day 10. Anxiety - ICD9: 300.00, ICD10: F41.9 - as above 11. Panic attacks - ICD9: 300.01, ICD10: F41.0 - as above 12. Primary insomnia - ICD9: 307.42, ICD10: F51.01 - as above - Refilled her Ambien 13. Migraine without aura and without status migrainosus, not intractable - ICD9: 346.10, ICD10: G43.009 - Will start propranolol 10 mg a day. 14. Lipomeningocele (HCC) - ICD9: 741.90, ICD10: Q05.9 - Advise to see Neuro about her leg pains to make sure not a recurrence of this issue. 15. Morbid obesity (HCC) - ICD9: 278.01, ICD10: E66.01 - patient to work on diet and exercise 16. Spina bifida with hydrocephalus, unspecified spinal region (HCC) - ICD9: 741.00, ICD10: Q05.4 - as above Signed Prescriptions Disp Refills lancets (FREESTYLE LANCETS) 28 gauge misc 100 Each 11 Sig: Test blood sugar(s) 1-2 times daily. Dx: 250.0. Insulin: No CODIE: No DULoxetine (CYMBALTA) 30 mg capsule 30 capsule 5 Sig: Take 1 capsule by mouth once daily. metFORMIN ER (GLUCOPHAGE XR) 500 mg 24 hr tablet 120 tablet 5 Sig: Take 2 tablets by mouth twice daily. CODIE: No propranolol (INDERAL) 10 mg tablet 30 tablet 5 Sig: Take 1 tablet by mouth once daily. F/u in 4 months routine check CMP, FLP and A1c prior. Time with patient face to face was 40 min Will Dietz MD CBC AND DIFFERENTIAL Collected: 06/16/2017 Status: F Source: [place] 12:[address] [facility] REPOSITORY TYPE CODE TESTS RESULT OUT OF REFERENCE UNITS RANGE LAB WBC 3.70-11.00 k/uL WBC 9.79 LAB RBC 3.90-5.20 m/uL RBC 4.42 LAB HGB 11.5-15.5 g/dL Hemoglobin 12.8 LAB HCT 36.0-46.0 % Hematocrit 40.6 LAB MCV 80.0-100.0 fL MCV 91.9 LAB MCH 26.0-34.0 pG MCH 29.0 LAB MCHC 30.5-36.0 g/dL MCHC 31.5 LAB RDWCV 11.5-15.0 % RDW-CV 13.5 LAB PLTCT 150-400 k/uL Platelet Count 242 LAB MPV 9.0-12.7 fL MPV 12.1 LAB ANEUT % Neut% 63.9 LAB AANEUT 1.45-7.50 k/uL Abs Neut 6.25 LAB ALYMP % Lymph% 25.6 LAB AALYMP 1.00-4.00 k/uL Abs Lymph 2.51 LAB AMONO % Bradley% 7.5 LAB AAMONO <0.87 k/uL Abs Bradley 0.73 LAB AEOS % Eosin% 2.1 LAB AAEOS <0.46 k/uL Abs Eosin 0.21 LAB ABASO % Baso% 0.9 LAB AABASO <0.11 k/uL Abs Baso 0.09 LAB AUNRBC 0 /100 WBC NRBCs 0.0 LAB ABNRBC <0.01 k/uL Absolute nRBC <0.01 LAB DTYP DTYPE Auto Diff Performed By: #### CBCDIF, CMP #### [facility] [address] [place], [place] [address] COMP METABOLIC PANEL Collected: 06/16/2017 Status: F Source: [place] 12:[address] [facility] REPOSITORY TYPE CODE TESTS RESULT OUT OF REFERENCE UNITS RANGE LAB TP 6.3-8.0 g/dL Protein, Total 7.4 LAB ALB 3.9-4.9 g/dL Albumin 3.9 LAB CA 8.5-10.2 mg/dL Calcium, Total 9.3 LAB TBIL 0.2-1.3 mg/dL Bilirubin, Total 0.2 LAB ALKP 32-117 U/L Alkaline Phosphatase 73 LAB AST 13-35 U/L AST High 36 LAB GLU 74-99 mg/dL Glucose High 283 Result Comment: The [place] Diabetes Association (ADA) provides guidance for cutoff values for fasting glucose and random glucose. The ADA defines fasting as no caloric intake for at least 8 hours. Fas ting plasma glucose results between 100 to 125 mg/dL indicate increased risk for diabetes (prediabetes). Fasting plasma glucose results greater than or equal to 126 mg/dL meet the criteria for diagnosis of diabetes. In the absence of unequivocal hyperglycemia, results should be confirmed by repeat testing. In a patient with classic symptoms of hyperglycemia or hyperglycemic crisis, random plasma glucose results greater than or equal to 200 mg/dL meet the criteria for diagnosis of diabetes. Reference: Standards of Medical Care in Diabetes 2016, [place] [employer] Association. Diabetes Care. 2016.39(Suppl 1). LAB BUN 7-21 mg/dL BUN 11 LAB CRET 0.58-0.96 mg/dL Creatinine 0.75 LAB NA 136-144 mmol/L Sodium 137 LAB K 3.7-5.1 mmol/L Potassium 4.3 LAB CL 97-105 mmol/L Chloride 99 LAB CO2 22-30 mmol/L CO2 22 LAB AGAP 9-18 mmol/L Anion Gap 16 LAB ALT 7-38 U/L ALT High 43 LAB GFRAA eGFR- Amer. >60 LAB GFRNAA . eGFR-All Other Races >60 Result Comment: eGFR (Estimated GFR) Units of measure: mL/min/1.73 meters squared eGFR is derived from the reexpressed MDRD Study equation using the following parameters: serum creatinine, age, gender and race. The creatinine assay has been calibrated to be traceable to [employer]. An eGFR <60 mL/min/1.73m2 for >3 months is consistent with chronic kidney disease. Refer to KDOQI guidelines for clinical interpretation. In patients with unstable renal function, e.g. those with acute kidney injury, the eGFR may not accurately reflect actual GFR. Performed By: #### CBCDIF, CMP #### [facility] [address] [place] [id number] PROGRESS Observed: 06/15/2017 Status: COMPLETED Source: [place] 12:[address] [facility] REPOSITORY HNO ID: [id number] Author: Martina Luther Service: (none) Author Type: Mine Wedge Sawyer Type: Progress Notes Filed: 06/15/2017 12:53 PM Note Text: The patient has been identified by name and date of : YES I have scheduled the patient for an appointment on 06/23/2017. The patient will report to the lab prior to the visit. CBC CMP Needs to Schedule appointment for pap PHMA Documentation 06/15/2017 Opts out of [facility] No Appointments Scheduled Scheduled PCP Appt DM2 with No Urine Alb Confirmed Complete DM2 with No DFE Confirmed Complete Martina Luther MA PROGRESS Observed: 06/14/2017 Status: COMPLETED Source: [place] 4:[address] [facility] REPOSITORY HNO ID: [id number] Author: Will Dietz Service: (none) Author Type: Physician Type: Progress Notes Filed: 06/15/2017 12:53 PM Note Text: Labs placed. PROGRESS Observed: 06/14/2017 Status: COMPLETED Source: [place] 9:[address] [facility] REPOSITORY HNO ID: [id number] Author: Martina Luther Service: (none) Author Type: Mine Wedge Sawyer Type: Progress Notes Filed: 06/15/2017 12:53 PM Note Text: PHMA TEAMLET DOCUMENTATION Provider Action/FYI: patient appointment 06-23-17 Needs a CBC add to labs for Care gap PSR Action/FYI: Schedule appointment for pap Teamlet has identified patient by name and date of . Team: Denae Monk MA, SAVANA Hernandez, ABDELRAHMAN Monaco, PSR, ? Last Office Visit:02/21/2017 ? Next Office Visit: 06/23/2017 ? Last BP/Labs: Blood Pressure: Last 3 Encounter BP Readings: Date: BP: 02/21/2017 112/84 10/18/2016 114/88 09/22/2016 100/70 Lipids: Cholesterol, Total (mg/dL) Date Value 06/02/2017 145 01/27/2017 170 HDL Cholesterol (mg/dL) Date Value 06/02/2017 41 01/27/2017 36 LDL Cholesterol (mg/dL) Date Value 06/02/2017 90 01/27/2017 103 Triglyceride (mg/dL) Date Value 06/02/2017 71 01/27/2017 156 HGB A1C: Lab Results Component Value Date HBA1C 8.1 06/02/2017 HBA1C 7.2 01/27/2017 HBA1C 7.2 10/17/2016 TSH: TSH (uU/mL) Date Value 06/02/2017 0.772 07/01/2013 1.090 ) Care Gap: DM - Has CrCl < 60ml/min and does NOT have Hemoglobin or Hematocrit in last 12 months Plan: ? ? Type of appointment needed: pap with SAVANA Hernandez ? Labs, HM and Immunization: Labs: CBC (Diff or PLT) CMP Pap Martina Luther MA CNPTOUTREACH Observed: 06/14/2017 Status: COMPLETED Source: [place] 12:[address] [facility] REPOSITORY Patient Outreach (FAMPWS) DEBBY BAILON ([id number]) 1980 F Date Time Provider Department 06/14/17 MARTINA LUTHER) FAMPWS During your visit today, we recorded the following information about you: Martina Luther MA 06/15/2017 12:53 PM Signed PHMA TEAMLET DOCUMENTATION Provider Action/FYI: patient appointment 06-23-17 Needs a CBC add to labs for Care gap PSR Action/FYI: Schedule appointment for pap Teamlet has identified patient by name and date of . Team: Denae Monk MA, SAVANA Hernandez, ABDELRAHMAN Monaco PSR, ? Last Office Visit:02/21/2017 ? Next Office Visit: 06/23/2017 ? Last BP/Labs: Blood Pressure: Last 3 Encounter BP Readings: Date: BP: 02/21/2017 112/84 10/18/2016 114/88 09/22/2016 100/70 Lipids: Cholesterol, Total (mg/dL) Date Value 06/02/2017 145 01/27/2017 170 HDL Cholesterol (mg/dL) Date Value 06/02/2017 41 01/27/2017 36 LDL Cholesterol (mg/dL) Date Value 06/02/2017 90 01/27/2017 103 Triglyceride (mg/dL) Date Value 06/02/2017 71 01/27/2017 156 HGB A1C: Lab Results Component Value Date HBA1C 8.1 06/02/2017 HBA1C 7.2 01/27/2017 HBA1C 7.2 10/17/2016 TSH: TSH (uU/mL) Date Value 06/02/2017 0.772 07/01/2013 1.090 ) Care Gap: DM - Has CrCl ANDlt; 60ml/min and does NOT have Hemoglobin or Hematocrit in last 12 months Plan: ? ? Type of appointment needed: pap with SAVANA Hernandez ? Labs, HM and Immunization: Labs: CBC (Diff or PLT) CMP Pap ABDELRAHMAN Resendiz MD 06/15/2017 12:53 PM Signed Labs placed. Martina Luther MA 06/15/2017 12:53 PM Signed The patient has been identified by name and date of : YES I have scheduled the patient for an appointment on 06/23/2017. The patient will report to the lab prior to the visit. CBC CMP Needs to Schedule appointment for pap PHMA Documentation 06/15/2017 Opts out of [facility] No Appointments Scheduled Scheduled PCP Appt DM2 with No Urine Alb Confirmed Complete DM2 with No DFE Confirmed Complete Martina Luther MA Allergies As of Date: 06/14/2017 Noted Allergy Reaction MRI CONTRAST (GADOLINIUM-CONTAINI*01/03/2017 8 - GI Upset MUSHROOM 06/10/2016 10 - Anaphylaxis PEANUTS 06/10/2016 10 - Anaphylaxis Date Reviewed: 03/15/2017 Reviewed by: Brittney Cook RN - Fully Assessed Reason for Visit: PHMA/Care Gap Outreach [[id number]] Primary Visit Diagnosis:Encounter for screening for malignant neoplasm of breast [Z12.31] Other Visit Diagnosis: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) [E11.29, R80.9] Order(s):CBC + DIFF [SQCBCDIF] Order #: [id number] FUTURE COMP METABOLIC PANEL [SQCMP] Order #: [id number] FUTURE Prescriptions as of 06/14/2017 Sig: COMPOUNDED PRESCRIPTION Promogran, use as directed, u* METFORMIN ER 500 MG TABLET,EX* Take 1 tablet by mouth twice * LISINOPRIL 2.5 MG TABLET Take 1 tablet by mouth once d* OXYBUTYNIN CHLORIDE ER 10 MG * Take 1 tablet by mouth once d* BLOOD SUGAR DIAGNOSTIC STRIPS Test blood sugar(s) 1- 2 times* DULOXETINE 20 MG CAPSULE,SHERRY* Take 1 capsule by mouth twice* HYDROXYZINE PAMOATE 25 MG CAP* Take 1 capsule by mouth three* ZOLPIDEM 5 MG TABLET Take 1 tablet by mouth at bed* BLOOD-GLUCOSE METER KIT Freestyle LITE Meter Kit - LANCETS 28 GAUGE Test blood sugar(s) 1- 2 times* GABAPENTIN 300 MG CAPSULE Take 1 capsule by mouth three* Problem List As Of Date 06/14/2017 Noted Resolved Threatened , antepartum [O20.0] INVALID FOR*04/07/2011 Supervision of normal first [Z34.00] INVALID FOR*04/07/2011 Cyst of ovary [N83.209] INVALID FOR* Priority: C Depressive disorder, not elsewhere classified [*INVALID FOR*01/06/2016 Priority: A More... Anxiety [F41.9] INVALID FOR* Priority: A More... Recurrent UTI [N39.0] INVALID FOR* Priority: C Dysthymic disorder [F34.1] Priority: A More... Panic attacks [F41.0] Priority: A Neck pain [M54.2] INVALID FOR* Priority: M Cervical radiculopathy [M54.12] INVALID FOR* Priority: M Weakness of both upper extremities [R29.898] INVALID FOR* Priority: M More... Muscle weakness of lower extremity [M62.81] INVALID FOR* Priority: M More... 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 Morbid obesity ([facility]) [E66.01] INVALID FOR* Priority: B Chronic pain [G89.29] INVALID FOR* Priority: M Neurogenic bladder [N31.9] INVALID FOR* Priority: B Hydronephrosis, right [N13.30] INVALID FOR* Priority: C History of kidney stones [Z87.442] INVALID FOR* Priority: C Spina bifida ([facility]) [Q05.9] INVALID FOR* Priority: B Neurogenic bowel [K59.2] INVALID FOR* Priority: B Primary insomnia [F51.01] INVALID FOR* Priority: A Type 2 diabetes mellitus with proteinuria ([facility])*INVALID FOR* Priority: A Pyelonephritis [N12] INVALID FOR* Diabetic eye exam ([facility]) [E11.9, Z01.00] INVALID FOR* Priority: A More... Migraine without aura and without status migrai*INVALID FOR* Priority: A Type 2 diabetes mellitus with albuminuria ([facility])*INVALID FOR* Priority: A Well adult exam [Z00.00] INVALID FOR* More... Ulcer of left foot ([facility]) [L97.529] INVALID FOR* Encounter Status:Closed by MARTINA LUTHER on 06/15/17 ALBUMIN/CREAT RATIO Collected: 06/02/2017 Status: F Source: [place] 11:27 AM [facility] REPOSITORY TYPE CODE TESTS RESULT OUT OF REFERENCE UNITS RANGE LAB UCRR 20-300 mg/dL Creatinine,Ur 62.0 ine,Ran LAB UALBR 0.0-23.0 mg/L Albumin Urine 20.2 Random LAB UALBCR 0-30 mg/g High Albumin/Creat 33 Ratio Result Comment: 30 to 300 mg/g indicates an increased risk for diabetic nephropathy. Greater than 300 mg/g is consistent with clinical nephropathy. (Am J Kidney Disease 1994, 25:107) Performed By: #### UACR #### [facility] [address], [place] [address] SED RATE WESTERGREN Collected: 06/02/2017 Status: F Source: [place] 11:26 AM [facility] [place] REPOSITORY TYPE CODE TESTS RESULT OUT OF REFERENCE UNITS RANGE LAB WSR 0-20 mm/hr Sed Rate High Westergren 35 Performed By: #### WSR, FT4, CK, LIPB, MG1, TSH, CRP, HBA1C #### [facility] [address], [place] [address] FREE T4 Collected: 06/02/2017 Status: F Source: [place] 11:[address] [facility] REPOSITORY TYPE CODE TESTS RESULT OUT OF RANGE REFERENCE UNITS LAB FT4 0.9-1.7 ng/dL Free T4 1.1 Performed By: #### WSR, FT4, CK, LIPB, MG1, TSH, CRP, HBA1C #### [facility], [place] [address] CK Collected: 06/02/2017 Status: F Source: [facility] 11:26 AM [facility] REPOSITORY TYPE CODE TESTS RESULT OUT OF RANGE REFERENCE UNITS LAB CK 42-196 U/L CK 80 Result Comment: Please note the updated, gender-specific reference range for this test (effective 05/12/2016). Performed By: #### WSR, FT4, CK, LIPB, MG1, TSH, CRP, HBA1C #### [facility] [address], [place] [address] LIPID PANEL, BASIC Collected: 06/02/2017 Status: F Source: [place] 11:[address] [facility] REPOSITORY TYPE CODE TESTS RESULT OUT OF REFERENCE UNITS RANGE LAB TRIGLY 30-149 mg/dL Triglyceride 71 LAB CHOL 100-199 mg/dL Cholesterol 145 LAB HDL >55 mg/dL Low HDL-Cholesterol 41 LAB VLDL 6-40 mg/dL VLDL Cholesterol 14 LAB LDL 60-129 mg/dL LDL-Cholesterol 90 LAB FT hrs Fasting Time 12 LAB TCHDL 1.00-5.00 TC:HDL Ratio 3.54 LAB LDLHDL 0.50-3.55 LDL:HDL Ratio 2.20 LAB NONHDL 90-159 mg/dL Non HDL Cholesterol 104 Performed By: #### WSR, FT4, CK, LIPB, MG1, TSH, CRP, HBA1C #### [facility] [address], [place] [address] MAGNESIUM Collected: 06/02/2017 Status: F Source: [place] 11:[address] [facility] REPOSITORY TYPE CODE TESTS RESULT OUT OF REFERENCE UNITS RANGE LAB MG 1.7-2.3 mg/dL Magnesium 2.0 Performed By: #### WSR, FT4, CK, LIPB, MG1, TSH, CRP, HBA1C #### [address] [address] TSH Collected: 06/02/2017 Status: F Source: [place] 11:[address] [facility] REPOSITORY TYPE CODE TESTS RESULT OUT OF RANGE REFERENCE UNITS LAB TSH 0.400-5.500 uU/mL TSH 0.772 Result Comment: If the patient is , TSH reference range varies by gestational period: First Trimester 0.100-2.500 uU/mL Second Trimester 0.200-3.000 uU/mL Third Trimester 0.300-3.000 uU/mL References: 1. Giron L, Stephanie M, Chaim EK, et al. Management of Thyroid Dysfunction during and : An Endocrine Society Clinical Practice Guideline. J Clin Endocrinol Metab, 2012:97:0729-9465. 2. Jez MI. Overview of thyroid disease in . UpToDate. 2016. Accessed on November 13, 2015. Performed By: #### WSR, FT4, CK, LIPB, MG1, TSH, CRP, HBA1C #### [facility] [address], [place] [address] C-REACTIVE PROTEIN Collected: 06/02/2017 Status: F Source: [place] 11:[address] [facility] REPOSITORY TYPE CODE TESTS RESULT OUT OF REFERENCE UNITS RANGE LAB CRP <0.9 mg/dL C-Reactive 0.6 Protein Performed By: #### WSR, FT4, CK, LIPB, MG1, TSH, CRP, HBA1C #### [facility] [address] [place], [place] [address] HEMOGLOBIN A1C Collected: 06/02/2017 Status: F Source: [place] 11:26 AM [facility] REPOSITORY TYPE CODE TESTS RESULT OUT OF REFERENCE UNITS RANGE LAB HGBA1C 4.3-5.6 % High Hemoglobin A1c 8.1 LAB HBA0 mg/dL Est. Average Glucose 186 Result Comment: eAG: (Estimated average glucose) is a calculated value from HgbA1c and is sales and marketing representative of the average blood glucose level in the last 2-3 month period. Performed By: #### WSR, FT4, CK, LIPB, MG1, TSH, CRP, HBA1C #### [facility] [address], [place] [address] ALLERGIES ALLERGIES DATE TYPE / CODE NAME / CODE REACTION SEVERITY SOURCE 05/11/2018 Drug Gadolinium-MRI Vomiting Unknown Norma Allergy/416 Contrast [facility] 284834([facility] Medium/[id number] Hospital ED CT) 59(RXNORM) Repository 05/11/2018 Drug peanut/[id number] Anaphylaxis Unknown Norma Allergy/416 68(RXNORM) [facility] 719938([facility] ED CT) Repository 05/11/2018 Drug mushroom/K24667 Anaphylaxis Unknown Start Allergy/416 6188(RXNORM) [facility] 471747([facility] ED CT) Repository 01/03/2017 Drug GADOLINIUM-CONT GI UPSET Low [facility] Class/57412 AINING CONTRAST Main [place] 1003(SNOMED MEDIA Repository CT) 01/03/2017 Drug GADOLINIUM-CONT GI UPSET [facility] Class/12078 AINING CONTRAST Main [place] 1003(SNOMED MEDIA Repository CT) 06/10/2016 DRUG MUSHROOM ANAPHYLAXIS High [facility] INGREDI/419 Main [place] 396920(SNOM Repository ED CT) 06/10/2016 Food/057814 PEANUTS ANAPHYLAXIS High [facility] 000(SNOMED [address] [place] CT) Repository 06/10/2016 DRUG MUSHROOM ANAPHYLAXIS [facility] INGREDI/419 [address] [place] 139646(SNOM Repository ED CT) 06/10/2016 Food/394255 PEANUTS ANAPHYLAXIS [facility] 000([facility] [place] [facility]) Repository 08/13/2015 DRUG MUSHROOM [facility]/419 [facility] 002919(SNOM Repository ED CT) 08/06/2015 DRUG PEANUT ALLERGY [facility]/419 [facility] 130953(SNOM Repository ED CT) NG/34475990 GADOLINIUM-CONT [facility] 6(SNOMED [facility] Health System CT) MEDIA Repository NG/44455889 MUSHROOM [facility] 6(PlurchaseOMED [employer] [facility] CT) Repository NG/13511763 PEANUTS [facility] 6([employer] System CT) Repository ENCOUNTERS ENCOUNTERS ADMIT/DISCHARGE ACCOUNT NUMBER ADMITTING ENCOUNTER LOCATION SOURCE CLASS 05/11/2018/05/11/20 [id number] Emergency [address] ding:ED Repository 05/09/2018/05/10/20 [id number] Ambulatory [address] Repository 05/03/2018/05/04/20 [id number] Ambulatory [address] Repository 04/30/2018/04/30/20 [id number] Ambulatory [address] Repository 04/26/2018/05/01/20 [id number] Ambulatory [address] Repository 04/24/2018/04/24/20 [id number] Emergency [address] ding:ED Repository 04/23/2018/04/23/20 [id number] Emergency [address] ding:ED Repository 04/14/2018/04/14/20 [id number] Emergency [address] ding:ED Repository 04/13/2018/04/13/20 [id number] Emergency [address] ding:ED Repository 04/11/2018/04/12/20 [id number] [place], Ambulatory Start [address] ding:AJ3Rgiz Repository : LC676Uqw: 1 04/11/2018 [id number] [place], Ambulatory BMSBuilding: Start [place] [facility] Repository 04/11/2018 [id number] [place], Ambulatory BMSBuilding: Norma [place] BMS.[facility] Repository 04/09/2018/04/09/20 [id number] Emergency Start Norma 18 [facility] ding:ED Repository 04/04/2018/04/05/20 [id number] Ambulatory [address] Repository 03/23/2018 [id number] Ambulatory [facility] ding:MRI Repository 03/22/2018/03/23/20 [id number] Emergency Start Norma 18 [facility] ding:ED Repository 03/19/2018/03/20/20 [id number] Emergency Start Start 18 [facility] ding:ED Repository 03/15/2018/03/15/20 [id number] Ambulatory [address] [place] Repository 03/15/2018/03/15/20 [id number] Ambulatory [address] Repository 03/15/2018/03/15/20 [id number] Ambulatory [address] Repository 03/15/2018/03/15/20 [id number] Ambulatory [address] Repository 03/14/2018/03/14/20 [id number] Emergency Norma [address] ding:ED Repository 03/07/2018/03/08/20 [id number] Ambulatory [address] [place] Repository 03/06/2018/03/07/20 [id number] Emergency Norma Start[address] ding:ED Repository 03/03/2018/03/03/20 [id number] Emergency Norma Start[address] ding:ED Repository 02/28/2018/03/01/20 [id number] Ambulatory [address] Repository 02/26/2018/02/27/20 [id number] Emergency BBuilding:[place] Day [address] [place] [address] Repository 02/25/2018/02/27/20 [id number] Emergency Norma Norma 18 [facility] ding:ED Repository 02/23/2018/02/24/20 [id number] Ambulatory Start[address] ding:PT Repository 02/16/2018/02/17/20 [id number] Emergency Norma Norma 18 [facility] ding:ED Repository 02/14/2018/02/15/20 [id number] Emergency Start[address] ding:ED Repository 02/13/2018/02/14/20 [id number] Ambulatory [address] Repository 01/30/2018/01/31/20 [id number] Ambulatory BMSBuilding: Norma 18 BMS.[facility] Repository 01/30/2018/01/31/20 [id number] Emergency Norma[address] ding:ED Repository 01/30/2018/02/01/20 [id number] Ambulatory [address] Repository 01/23/2018 [id number] Ambulatory [facility] ding:LABSPEC Repository 01/23/2018/01/24/20 [id number] Ambulatory BMSBuilding: Start 18 BMS.[facility] Repository 01/21/2018/01/22/20 [id number] Emergency [address] ding:ED Repository 01/18/2018/01/19/20 [id number] Ambulatory BMSBuilding: Norma 18 BMS.[facility] Repository 01/08/2018/01/10/20 [id number] Ambulatory [address] Repository 01/02/2018/01/03/20 [id number] Ambulatory [address] Repository 01/02/2018/01/03/20 [id number] Ambulatory [address] MEDICAL Repository CENTERBuildi ng:AGGENS1 01/01/2018/01/02/20 [id number] Ambulatory [address] Repository 12/26/2017/12/27/19 [id number] Emergency [address] Other [place] Repository 12/26/2017/12/27/19 [id number] Emergency [address] MEDICAL Repository CENTERBuildi ng:AKEDRoom: EMBed: 35 12/24/2017/12/25/19 [id number] Emergency [address] ding:ED Repository 12/20/2017/12/21/19 [id number] Emergency [address] ding:ED Repository 12/17/2017/12/19/19 [id number] Emergency Norma Norma[address] ding:ED Repository 12/16/2017/12/17/19 [id number] [place], Emergency Start [address] ding:EDRoom: Repository [id number] 12/11/2017/12/13/19 [id number] ANNE CHRISTENSEN Ambulatory [address] Repository 12/11/2017/12/13/19 [id number] ANNE CHRISTENSEN Inpatient [address] MEDICAL Repository [place]: 5217Bed: 12/01/2017/12/02/19 [id number] Ambulatory [address] Repository 12/01/2017/12/02/19 [id number] Ambulatory [address] MEDICAL Repository CENTERBuildi ng:AKPAT 11/07/2017/11/09/19 [id number] Emergency [address] ding:ED Repository 11/07/2017/11/08/19 [id number] Ambulatory Building:[address] Repository 10/25/2017/10/26/19 [id number] Ambulatory [address] Repository 10/25/2017/10/27/19 [id number] Ambulatory [address] Repository 10/17/2017/10/18/19 [id number] Ambulatory [address] Repository 10/17/2017/10/18/19 [id number] Ambulatory [address] MEDICAL Repository CENTERBuildi ng:AGGENS1 10/14/2017/10/15/19 [id number] Emergency Norma[address] ding:ED Repository 10/10/2017/10/11/19 [id number] Ambulatory [address] Repository 10/05/2017/10/10/19 [id number] Ambulatory [address] Repository 09/15/2017/09/16/19 [id number] Emergency Start[address] ding:ED Repository 09/12/2017/09/15/19 [id number] Ambulatory [address] Main [place] Repository 08/22/2017/08/23/19 [id number] Emergency [address] ding:ED Repository 08/11/2017/08/15/19 [id number] Ambulatory [address] Main [place] Repository 08/04/2017/08/05/19 [id number] Ambulatory [place] [facility] Main [place] Repository 08/04/2017/08/05/19 [id number] Ambulatory [place] 18 [facility] Main [place] Repository 08/02/2017/08/09/19 [id number] Ambulatory [place] 18 [facility] Main [place] Repository 07/28/2017/07/29/19 [id number] Ambulatory [address] Main [place] Repository 07/28/2017/08/02/19 [id number] Ambulatory [address] Main [place] Repository 07/27/2017/07/28/19 [id number] Ambulatory [address] Main [place] Repository 07/27/2017/07/28/19 [id number] Ambulatory [address] Main [place] Repository 07/27/2017/11/11/19 [id number] Ambulatory [address] Main [place] Repository 07/25/2017/07/25/19 [id number] Emergency [address] ding:ED Repository 07/22/2017/07/22/19 [id number] Emergency [address] ding:ED Repository 07/18/2017/07/18/19 [id number] Emergency [address] ding:ED Repository 07/18/2017 [id number] Ambulatory [facility] ding:CVS Repository 07/18/2017 [id number] Ambulatory BMSBuilding: [facility] Repository 06/28/2017 [id number] Ambulatory [facility] ding:PSN Repository 06/28/2017 [id number] Ambulatory BMSBuilding: [facility] Repository 06/28/2017 [id number] Ambulatory BMSBuilding: [facility] Repository 06/23/2017/06/23/19 [id number] Ambulatory [address] [place] Repository 06/16/2017/06/16/19 [id number] Ambulatory [address] Repository 06/02/2017/06/02/19 [id number] Ambulatory [address] Repository PAYERS PAYERS ENCOUNTER GUARANTOR PAYER SUBSCRIBER SOURCE 05/11/2018 DEBBY Alvarenga Primary DEBBY Green [id number] Insurance:MEDICARE BRENNEMANDOB: [facility] [id number] Number: Repository [id number]: 330 [id number] [phone] (HP) Date:2018-05-11 05/11/2018 Secondary DEBBY L Start Insurance:MEDICAIDPol BRENNEMANDOB: [facility] icy Number: [id number] Hospital [id number] Repository Date:2018-05-11 05/11/2018 Tertiary NOT GIVENUNK Norma Insurance:SELF PAY [facility]: Effective Repository Date:2018-05-11 04/24/2018 DEBBY Alvarenga Primary DEBBY Green [id number] Insurance:MEDICARE BRENNEMANDOB: [facility] [id number] [place] Number: Repository [address]Wag: 330 [id number] [phone] (HP) Date:2018-04-24 04/24/2018 Secondary DEBBY L Start Insurance:MEDICAIDPol BRENNEMANDOB: [facility] icy Number: [id number] Hospital [id number] Repository Date:2018-04-24 04/24/2018 Tertiary NOT GIVENUNK Start Insurance:SELF PAY [facility] Number: Effective Repository Date:2018-04-24 04/23/2018 DEBBY L Primary DEBBY L Start [id number] Insurance:MEDICARE BRENNEMANDOB: [facility] [id number], [place] Number: Repository [address]Axv: 330 [id number] [phone] (HP) Date:2018-04-23 04/23/2018 Secondary DEBBY L Start Insurance:MEDICAIDPol BRENNEMANDOB: [facility] icy Number: [id number] Hospital [id number] Repository Date:2018-04-23 04/23/2018 Tertiary NOT GIVENUNK Start Insurance:SELF PAY [facility] Number: Effective Repository Date:2018-04-23 04/14/2018 DEBBY Alvarenga Primary DEBBY L Norma [id number] Insurance:MEDICARE BRENNEMANDOB: [facility] PART A [facility] [id number] Hospital [place] Number: Repository [address]Apx: 330 [id number] [phone] (HP) Date:2018-04-14 04/14/2018 Secondary DEBBY L Norma Insurance:MEDICAIDPol BRENNEMANDOB: [facility] icy Number: [id number] [id number] Repository Date:2018-04-14 04/14/2018 Tertiary NOT GIVENUNK Start Insurance:SELF PAY [facility] Number: Effective Repository Date:2018-04-14 04/13/2018 DEBBY L Primary DEBBY L Norma [id number] Insurance:MEDICARE BRENNEMANDOB: [facility] PART A [facility] [id number].[facility] [place] Number: Repository [address]Dra: 330 [id number] [phone] (HP) Date:2018-04-13 04/13/2018 Secondary DEBBY L Norma Insurance:MEDICAIDPol BRENNEMANDOB: [facility] icy Number: [id number] Hospital [id number] Repository Date:2018-04-13 04/13/2018 Tertiary NOT GIVENUNK Start Insurance:SELF PAY [facility] Number: Effective Repository Date:2018-04-13 04/11/2018 DEBBY L Primary DEBBY L Norma [id number] Insurance:MEDICARE BRENNEMANDOB: [facility] [id number].[facility] [place] Number: Repository [id number]: 330 [id number] [phone] (HP) Date:2018-04-11 04/11/2018 Secondary DEBBY L Norma Insurance:MEDICAIDPol BRENNEMANDOB: [facility] icy Number: [id number] Hospital [id number] Repository Date:2018-04-11 04/11/2018 Tertiary NOT GIVENUNK Norma Insurance:SELF PAY [facility] Number: Effective Repository Date:2018-04-11 04/11/2018 DEBBY Alvarenga Primary DEBBY L Norma [id number] Insurance:MEDICARE BRENNEMANDOB: [facility] [id number] Hospital [place] Number: Repository [address]Tjz: 330 [id number] [phone] (HP) Date:2018-04-11 04/11/2018 Secondary DEBBY L Norma Insurance:MEDICAIDPol BRENNEMANDOB: [facility] icy Number: [id number] Hospital [id number] Repository Date:2018-04-11 04/11/2018 Tertiary NOT GIVENUNK Norma Insurance:SELF PAY [facility] Number: Effective Repository Date:2018-04-11 04/11/2018 DEBBY L Primary DEBBY L Norma [id number] Insurance:MEDICARE BRENNEMANDOB: [facility] [id number] Hospital [place] Number: Repository [id number]: 330 [id number] [phone] (HP) Date:2018-04-11 04/11/2018 Secondary DEBBY L Norma Insurance:MEDICAIDPol BRENNEMANDOB: [facility] icy Number: [id number] Hospital [id number] Repository Date:2018-04-11 04/11/2018 Tertiary NOT GIVENUNK Start Insurance:SELF PAY [facility] Number: Effective Repository Date:2018-04-11 04/09/2018 DEBBY L Primary DEBBY L Start [id number] Insurance:MEDICARE BRENNEMANDOB: [facility] [id number].[facility] [place] Number: Repository [address]Uct: 330 [id number] [phone] (HP) Date:2018-04-09 04/09/2018 Secondary DEBBY L Norma Insurance:MEDICAIDPol BRENNEMANDOB: [facility] icy Number: [id number] Hospital [id number] Repository Date:2018-04-09 04/09/2018 Tertiary NOT GIVENUNK Norma Insurance:SELF PAY [facility] Number: Effective Repository Date:2018-04-09 03/23/2018 DEBBY Alvarenga Primary DEBBY Green [id number] Insurance:MEDICARE BRENNEMANDOB: [facility] [place] PART A [facility] [id number] Hospital [place] Number: Repository [address]Ekb: 330 [id number] [phone] (HP) Date:2018-03-19 03/23/2018 Secondary DEBBY L Norma Insurance:MEDICAIDPol BRENNEMANDOB: [facility] icy Number: [id number] Hospital [id number] Repository Date:2018-03-19 03/23/2018 Tertiary NOT GIVENUNK Norma Insurance:SELF PAY [facility] Number: Effective Repository Date:2018-03-19 03/22/2018 DEBBY L Primary DEBBY Green [id number] Insurance:MEDICARE BRENNEMANDOB: [facility] [place] PART A [facility] [facility] [id number] Hospital [place] Number: Repository [address]Xyk: 330 [id number] [phone] ([phone] Date:2018-03-22 03/22/2018 Secondary DEBBY L Start Insurance:MEDICAIDPol BRENNEMANDOB: [facility] icy Number: [id number] Hospital [id number] Repository Date:2018-03-22 03/22/2018 Tertiary NOT GIVENUNK Start Insurance:SELF PAY [facility] Number: Effective Repository Date:2018-03-22 03/19/2018 DEBBY L Primary DEBBY L Start [id number] Insurance:MEDICARE BRENNEMANDOB: [facility] [id number] Hospital [place] Number: Repository [address]Erl: 330 [id number] [phone] (HP) Date:2018-03-19 03/19/2018 Secondary DEBBY L Norma Insurance:MEDICAIDPol BRENNEMANDOB: Community icy Number: [id number] Hospital [id number] Repository Date:2018-03-19 03/19/2018 Tertiary NOT GIVENUNK Norma Insurance:SELF PAY [facility] Number: Effective Repository Date:2018-03-19 03/14/2018 DEBBY L Primary DEBBY L Norma [id number] Insurance:MEDICARE BRENNEMANDOB: Community [place] PART A [facility] [id number][place] Number: Repository [address]Yve: 330 [id number] [phone] (HP) Date:2018-03-14 03/14/2018 Secondary DEBBY L Norma Insurance:MEDICAIDPol BRENNEMANDOB: Community icy Number: [id number] Hospital [id number] Repository Date:2018-03-14 03/14/2018 Tertiary NOT GIVENUNK Start Insurance:SELF PAY [facility] Number: Effective Repository Date:2018-03-14 03/06/2018 DEBBY L Primary DEBBY L Start [id number] Insurance:MEDICARE BRENNEMANDOB: [facility] [id number] Hospital [place] Number: Repository [address]Isk: 330 [id number] [phone] (HP) Date:2018-03-06 03/06/2018 Secondary DEBBY L Norma Insurance:MEDICAIDPol BRENNEMANDOB: Community icy Number: [id number] Hospital [id number] Repository Date:2018-03-06 03/06/2018 Tertiary NOT GIVENUNK Norma Insurance:SELF PAY [facility] Number: Effective Repository Date:2018-03-06 03/03/2018 DEBBY L Primary DEBBY L Norma [id number] Insurance:MEDICARE BRENNEMANDOB: Community [place] PART A [facility] [id number], [place] Number: Repository [address]Rsi: 330 [id number] [phone] (HP) Date:2018-03-03 03/03/2018 Secondary DEBBY L Start Insurance:MEDICAIDPol BRENNEMANDOB: Community icy Number: [id number] Hospital [id number] Repository Date:2018-03-03 03/03/2018 Tertiary NOT GIVENUNK Start Insurance:SELF PAY [facility] Number: Effective Repository Date:2018-03-03 02/26/2018 DEBBY L Primary [facility] L [facility] Insurance:MEDICARE [facility]: [facility] PART BPolicy Number: [id number] Repository [place] [id number] [place], [place] Date:2018-02-26 [place], [place] [address]Olq: [phone] [phone]: () Name:[facility] [id number] [facility] ()Tel: (000) [address] [address]Cmrdkvtxv, [phone] (WP) [place] [phone]: 02/26/2018 Secondary DEBBY Colette [facility] Insurance:MEDICAID [facility]: [facility] Number: [id number] Repository [id number] [place] Date:2018-02-26 [place] [id number] [phone]: [phone] Name:HUANG MYRANDA [place] [phone] 1736[address]Ibtbyzmb, [place] ()Tel: [phone]: (WP) [phone] 02/25/2018 DEBBY L Primary DEBBY L Start [id number] Insurance:MEDICARE [facility]ON[facility]OS[facility]ITALDOB: [facility] PART A BPolicy [id number], [place] Number: Repository [address]Wyv: 330 [id number] [phone] () Date:2018-02-25 02/25/2018 Secondary DEBBY L Start Insurance:MEDICAIDPol [facility] Number: [id number] Hospital [id number] Repository Date:2018-02-25 02/25/2018 Tertiary NOT GIVENUNK Start Insurance:SELF PAY [facility] Number: Effective Repository Date:2018-02-25 02/23/2018 DEBBY L Primary DEBBY L Start [id number] Insurance:MEDICARE BRENNEMANDOB: [facility] [id number], [place] Number: Repository [address]Rti: 330 [id number] [phone] (HP) Date:2016-03-29 02/23/2018 Secondary DEBBY L Start Insurance:MEDICAIDPol BRENNEMANDOB: [facility] icy Number: [id number] Hospital [id number] Repository Date:2018-01-27 02/23/2018 Tertiary NOT GIVENUNK Noram Insurance:SELF PAY [facility] Number: Effective Repository Date:2018-01-31 02/16/2018 DEBBY L Primary DEBBY L Start [id number] Insurance:MEDICARE BRENNEMANDOB: [facility] PART A [facility] [id number] Hospital [place] Number: Repository [address]Hnd: 330 [id number] [phone] (HP) Date:2018-02-16 02/16/2018 Secondary DEBBY L Start Insurance:MEDICAIDPol BRENNEMANDOB: [facility] icy Number: [id number] Hospital [id number] Repository Date:2018-02-16 02/16/2018 Tertiary NOT GIVENUNK Norma Insurance:SELF PAY [facility] Number: Effective Repository Date:2018-02-16 02/14/2018 DEBBY L Primary DEBBY L Norma [id number] Insurance:MEDICARE BRENNEMANDOB: [facility] PART A [facility] [id number], [place] Number: Repository [address]Dqj: 330 [id number] [phone] (HP) Date:2018-02-14 02/14/2018 Secondary DEBBY L Start Insurance:MEDICAIDPol BRENNEMANDOB: [facility] icy Number: [id number] Hospital [id number] Repository Date:2018-02-14 02/14/2018 Tertiary NOT GIVENUNK Norma Insurance:SELF PAY [facility] Number: Effective Repository Date:2018-02-14 01/30/2018 DEBBY L Primary DEBBY L Norma [id number] Insurance:MEDICARE BRENNEMANDOB: [facility] [id number].[facility] [place] Number: Repository [address]Bpz: 330 [id number] [phone] () Date:2018-01-23 01/30/2018 Secondary DEBBY L Start Insurance:MEDICAIDPol BRENNEMANDOB: [facility] icy Number: [id number] Hospital [id number] Repository Date:2018-01-23 01/30/2018 Tertiary NOT GIVENUNK Start Insurance:SELF PAY [facility] Number: Effective Repository Date:2018-01-30 01/30/2018 DEBBY L Primary DEBBY L Norma [id number] Insurance:MEDICARE BRENNEMANDOB: [facility] PART A [facility] [id number].W. [facility], [place] Number: Repository [address]Dog: 330 [id number] [phone] () Date:2018-01-30 01/30/2018 Secondary DEBBY L Start Insurance:MEDICAIDPol BRENNEMANDOB: [facility] icy Number: [id number] Hospital [id number] Repository Date:2018-01-30 01/30/2018 Tertiary NOT GIVENUNK Start Insurance:SELF PAY [facility] Number: Effective Repository Date:2018-01-30 01/23/2018 DEBBY L Primary DEBBY L Norma [id number] Insurance:MEDICARE BRENNEMANDOB: [facility] PART A [facility] [id number].[facility] [place] Number: Repository [address]Vvm: 330 [id number] [phone] () Date:2018-01-23 01/23/2018 Secondary DEBBY L Norma Insurance:MEDICAIDPol BRENNEMANDOB: [facility] icy Number: [id number] Hospital [id number] Repository Date:2018-01-23 01/23/2018 Tertiary NOT GIVENUNK Norma Insurance:SELF PAY [facility] Number: Effective Repository Date:2018-01-23 01/23/2018 DEBBY L Primary DEBBY L Start [id number] Insurance:MEDICARE BRENNEMANDOB: [facility] PART A [facility] [id number] Hospital [place] Number: Repository [address]Mdo: 330 [id number] [phone] () Date:2018-01-18 01/23/2018 Secondary DEBBY L Start Insurance:MEDICAIDPol BRENNEMANDOB: [facility] icy Number: [id number] Hospital [id number] Repository Date:2018-01-18 01/23/2018 Tertiary NOT GIVENUNK Norma Insurance:SELF PAY [facility] Number: Effective Repository Date:2018-01-23 01/21/2018 DEBBY L Primary DEBBY L Norma [id number] Insurance:MEDICARE BRENNEMANDOB: [facility] A [facility] [id number].W. [facility], [place] Number: Repository [address]Fuc: 330 [id number] [phone] (HP) Date:2018-01-21 01/21/2018 Secondary DEBBY L Norma Insurance:MEDICAIDPol BRENNEMANDOB: [facility] icy Number: [id number] Hospital [id number] Repository Date:2018-01-21 01/21/2018 Tertiary NOT GIVENUNK Start Insurance:SELF PAY [facility] Number: Effective Repository Date:2018-01-21 01/18/2018 DEBBY L Primary DEBBY L Norma [id number] Insurance:MEDICARE BRENNEMANDOB: [facility] PART A [facility] [id number].[facility] [place] Number: Repository [address]Kad: 330 [id number] [phone] (HP) Date:2018-01-04 01/18/2018 Secondary DEBBY L Norma Insurance:MEDICAIDPol BRENNEMANDOB: [facility] icy Number: [id number] Hospital [id number] Repository Date:2018-01-04 01/18/2018 Tertiary NOT GIVENUNK Start Insurance:SELF PAY [facility] Number: Effective Repository Date:2018-01-04 01/02/2018 DEBBY L Primary DEBBY L [facility] BRENNEMANDOB: Insurance:MEDICARE A BRENNEMANDOB: Health System AND BPolicy Number: [id number] [facility] [id number], [place] Date: [address]Hwr: () 01/02/2018 Secondary DEBBY L [facility] MEDICAIDPolicy [id number] Repository Number: [id number] Date: 12/26/2017 DEBBY L Primary DEBBY L [facility] BRENNEMANDOB: Insurance:MEDICARE A BRENNEMANDOB: [facility] Number: [id number] [facility] [id number], [place] Date: [address]Ooy: () 12/26/2017 Secondary DEBBY L [facility] Insurance:[facility]: [facility] MEDICAIDPolicy [id number] Repository Number: [id number] Date: 12/24/2017 DEBBY L Primary DEBBY L Start [id number] Insurance:MEDICARE BRENNEMANDOB: [facility] PART A [facility] [id number], [place] Number: Repository [address]Pwf: 330 [id number] [phone] () Date:2017-12-24 12/24/2017 Secondary DEBBY L Start [facility]ENTERDOB: [facility] Number: [id number] [facility] [id number] Repository Date:2017-12-24 12/24/2017 Tertiary NOT GIVENUNK Start Insurance:SELF PAY [facility] Number: Effective Repository Date:2017-12-24 12/20/2017 DEBBY L Primary DEBBY L Norma [id number] Insurance:MEDICARE [facility]ENTERDOB: [facility] PART A [facility] [id number], [place] Number: Repository [address]Hfa: (653) [id number] [phone] () Date:2017-12-20 12/20/2017 Secondary DEBBY L Norma Insurance:MEDICAIDPol BRENNEMANDOB: [facility] icy Number: [id number] Hospital [id number] Repository Date:2017-12-20 12/20/2017 Tertiary NOT GIVENUNK Norma Insurance:SELF PAY [facility] Number: Effective Repository Date:2017-12-20 12/17/2017 DEBBY L Primary DEBBY L Start [id number] Insurance:MEDICARE BRENNEMANDOB: [facility] PART A [facility] [id number], [place] Number: Repository [address]Qoa: 330 [id number] [phone] (HP) Date:2017-12-17 12/17/2017 Secondary DEBBY L Norma Insurance:MEDICAIDPol BRENNEMANDOB: [facility] icy Number: [id number] Hospital [id number] Repository Date:2017-12-17 12/17/2017 Tertiary NOT GIVENUNK Norma Insurance:SELF PAY [facility] Number: Effective Repository Date:2017-12-17 12/16/2017 DEBBY L Primary DEBBY L Norma [id number] Insurance:MEDICARE [facility]ENNREG[facility] MED[facility] CENTERDOB: [facility] PART A [facility] [id number], [place] Number: Repository [address]Gxi: 330 [id number] [phone] (HP) Date:2017-12-16 12/16/2017 Secondary DEBBY L Start Insurance:MEDICAIDPol BRENNEMANDOB: [facility] icy Number: [id number] Hospital [id number] Repository Date:2017-12-16 12/16/2017 Tertiary NOT GIVENUNK Start Insurance:SELF PAY [facility] Number: Effective Repository Date:2017-12-16 12/11/2017 DEBBY L Primary DEBBY L [facility] BRENNEMANDOB: Insurance:MEDICARE A BRENNEMANDOB: Health System AND BPolicy Number: [id number]al [facility] [id number] [place] Date: [address]Zzz: () 12/11/2017 Secondary DEBBY L [facility] Insurance:[place] BREEMANDOB: Health System [facility] [id number] Repository Number: [id number] Date: 12/01/2017 DEBBY L Primary DEBBY L [facility] BRENNEMANDOB: Insurance:MEDICARE A BRENNEMANDOB: Health System AND BPolicy Number: [id number] Repository [place] [id number] [place], [place] Date: [address]Mma: () 12/01/2017 Secondary DEBBY L [facility] Insurance[facility]: [facility] MEDICAIDPolicy [id number] Repository Number: [id number] Date: 11/07/2017 DEBBY L Primary DEBBY L Start [id number] Insurance:MEDICARE BRENNEMANDOB: [facility] [id number] [place], [place] Number: Repository [address]Jud: [id number] [phone] Date:2017-11-07 () 11/07/2017 Secondary DEBBY L Start Insurance:MEDICAIDPol BRENNEMANDOB: [facility] icy Number: [id number] [facility] [id number] Repository Date:2017-11-07 11/07/2017 Tertiary NOT GIVENUNK Norma Insurance:SELF PAY [facility] Number: Effective Repository Date:2017-11-07 11/07/2017 DEBBY Primary DEBBY L [facility] BRENNEMANDOB: Insurance:MEDICAREPol BREEMANDOB: [facility] icy Number: [id number] Repository [place] [id number] [facility], Date: [place], [place] [address]H[place]: [place] [address] () 11/07/2017 Secondary DEBBY [facility] Insurance:[facility]SB: Hospital MEDICAIDPolicy [id number] Repository Number: [place] [id number] [facility], Date: [place] [address] 10/17/2017 DEBBY L Primary DEBBY L [facility] BRENNEMANDOB: Insurance:MEDICARE A BRENNEMANDOB: [facility] AND olicy Number: [id number] [facility] [id number] [place] Date: [address]Hbk: () 10/17/2017 Secondary DEBBY L [facility] Insurance:[place] BRENNEMANDOB: [facility] [id number] Repository Number: [id number] Date: 10/14/2017 Debby L Primary DEBBY L Start [id number] Insurance:MEDICARE BRENNEMANDOB: [facility] PART A [facility] [id number], [place] Number: Repository [address]Nvj: [id number] [phone] Date:2017-10-14 () 10/14/2017 Secondary DEBBY L Start Insurance:MEDICAIDPol BRENNEMANDOB: [facility] icy Number: [id number] Hospital [id number] Repository Date:2017-10-14 10/14/2017 Tertiary NOT GIVENUNK Start Insurance:SELF PAY [facility] Number: Effective Repository Date:2017-10-14 09/15/2017 Debby L Primary DEBBY L Norma [id number] Insurance:MEDICARE BRENNEMANDOB: [facility] PART A [facility] [id number], [place] Number: Repository [address]Fzp: [id number] [phone] Date:2017-09-15 () 09/15/2017 Secondary DEBBY L Start Insurance:MEDICAIDPol BRENNEMANDOB: [facility] icy Number: [id number] Hospital [id number] Repository Date:2017-09-15 09/15/2017 Tertiary NOT GIVENUNK Start Insurance:SELF PAY [facility] Number: Effective Repository Date:2017-09-15 08/22/2017 Debby L Primary DEBBY L Start [id number] Insurance:MEDICARE BRENNEMANDOB: [facility] PART A [facility] [id number], [place] Number: Repository [address]Dnr: 330 [id number] [phone] () Date:2017-08-22 08/22/2017 Secondary DEBBY L Start Insurance:MEDICAIDPol BRENNEMANDOB: [facility] icy Number: [id number] Hospital [id number] Repository Date:2017-08-22 08/22/2017 Tertiary NOT GIVENUNK Start Insurance:SELF PAY [facility] Number: Effective Repository Date:2017-08-22 07/25/2017 Debby L Primary DEBBY L Start [id number] Insurance:MEDICARE BRENNEMANDOB: [facility] [id number], [place] Number: Repository [address]Wvu: 330 [id number] [phone] () Date:2017-07-25 07/25/2017 Secondary DEBBY L Start Insurance:MEDICAIDPol BRENNEMANDOB: [facility] icy Number: [id number] Hospital [id number] Repository Date:2017-07-25 07/25/2017 Tertiary NOT GIVENUNK Start Insurance:SELF PAY [facility] Number: Effective Repository Date:2017-07-25 07/22/2017 Debby L Primary DEBBY L Norma [id number] Insurance:MEDICARE BRENNEMANDOB: [facility] [id number], [place] Number: Repository [address]Zgm: 330 [id number] [phone] () Date:2017-07-22 07/22/2017 Secondary DEBBY L Norma Insurance:MEDICAIDPol BRENNEMANDOB: [facility] icy Number: [id number] Hospital [id number] Repository Date:2017-07-22 07/22/2017 Tertiary NOT GIVENUNK Start Insurance:SELF PAY [facility] Hospital Number: Effective Repository Date:2017-07-22 07/18/2017 Debby L Primary DEBBY L Norma [id number] Insurance:MEDICARE BRENNEMANDOB: Community [facility] A [facility] [id number].W[facility] [place] Number: Repository [address]Vpr: (651) [id number] [phone] () Date:2017-07-18 07/18/2017 Secondary DEBBY L Norma Insurance:MEDICAIDPol BRENNEMANDOB: Community icy Number: [id number] Hospital [id number] Repository Date:2017-07-18 07/18/2017 Tertiary NOT GIVENUNK Start Insurance:SELF PAY [facility] Number: Effective Repository Date:2017-07-18 07/18/2017 Debby L Primary DEBBY L Start [id number] Insurance:MEDICARE BRENNEMANDOB: [facility] A [facility] [id number] [facility] [place] Number: Repository [address]Jvf: 330 [id number] [phone] () Date:2017-06-27 07/18/2017 Secondary DEBBY L Start Insurance:MEDICAIDPol BRENNEMANDOB: Community icy Number: [id number] Hospital [id number] Repository Date:2017-06-27 07/18/2017 Tertiary NOT GIVENUNK Norma Insurance:SELF PAY [facility] Number: Effective Repository Date:2017-06-27 07/18/2017 Debby L Primary DEBBY L Norma [id number] Insurance:MEDICARE BRENNEMANDOB: [facility] PART A [facility] [id number].[facility] [place] Number: Repository [address]Nfq: 330 [id number] [phone] () Date:2017-07-18 07/18/2017 Secondary DEBBY L Start Insurance:MEDICAIDPol BRENNEMANDOB: [facility] icy Number: [id number] Hospital [id number] Repository Date:2017-07-18 07/18/2017 Tertiary NOT GIVENUNK Norma Insurance:SELF PAY [facility] Number: Effective Repository Date:2017-07-18 06/28/2017 Debby L Primary DEBBY L Norma [id number] Insurance:MEDICARE BRENNEMANDOB: [facility] PART A [facility] [id number] Park [facility] Number: Repository [address]Pjm: [phone]) [id number] [phone] (HP) Date:2017-06-27 06/28/2017 Secondary DEBBY L Norma Insurance:MEDICAIDPol BRENNEMANDOB: Community icy Number: [id number] Hospital [id number] Repository Date:2017-06-27 06/28/2017 Tertiary NOT GIVENUNK Start Insurance:SELF PAY [facility] Number: Effective Repository Date:2017-06-27 06/28/2017 Debby L Primary DEBBY L Norma [id number] Insurance:MEDICARE BRENNEMANDOB: Community [place] [facility] A [facility] [id number].[facility] Number: Repository [address]Eja: [phone] [id number] [phone] (HP) Date:2017-06-27 06/28/2017 Secondary DEBBY L Norma Insurance:MEDICAIDPol BRENNEMANDOB: Community icy Number: [id number] Hospital [id number] Repository Date:2017-06-27 06/28/2017 Tertiary NOT GIVENUNK Start Insurance:SELF PAY [facility] Number: Effective Repository Date:2017-06-28 06/28/2017 Debby L Primary DEBBY L Norma [id number] Insurance:MEDICARE BRENNEMANDOB: Community [place] [facility] A [facility] [id number].[facility] [place] Number: Repository [address]Shu: [phone] [id number] [phone] (HP) Date:2017-06-27 06/28/2017 Secondary DEBBY L Start Insurance:MEDICAIDPol BRENNEMANDOB: Community icy Number: [id number] Hospital [id number] Repository Date:2017-06-27 06/28/2017 Tertiary NOT GIVENUNK Norma Insurance:SELF PAY [facility] Number: Effective Repository Date:2017-06-28
== END 2018-04-23 19:48 | disposition home or self-care (01) ==
PROVIDERS: Emergency Provider Emergency Medicine; Family Provider Family Medicine; PCP Family Medicine
DX: L60.0 Ingrowing nail (principal); Q05.9 Spina bifida, unspecified; Z86.14 Personal history of Methicillin resistant Staphylococcus aureus infection
CPT/HCPCS: 73630; 99283

== ENCOUNTER 2018-04-24 16:08 | Emergency (ER) | payer MEDICARE, MEDICAID, SELFPAY ==
[2018-04-23 17:38] VITALS: BMI 42.9
[2018-04-24 16:09] VITALS: BP 146/89; PULSE 79; RESP 16; TEMP 37; O2SAT 97; BMI 42.7
--- NOTE | 2018-04-24 16:28 | ED.VISSUMM ---
- ER Visit Summary Date of Service: 04/24/18 Chief Complaint: Ingrown left toenail History of Present Illness: The patient is a 37 F presents with pain in the left great toe.She states that she was seen in the emergency department yesterday and placed on antibiotics (Cipro and Bactrim. She states that she was told to come back if it got worse and she is feels that it is worse. She states that she normally cannot feel anything in her feet now she feels pain. She reports now having an appointment with her lift slab operator at the [facility] on . The patient states that she does her daily once a night soaks with Epsom salts. She has not put a dressing on the wound. She has been wearing socks and shoes. No fevers. She had x-rays yesterday that were negative. She states that there is a black hole that she is seen. She was upset that she was in the room for 30 minutes last night before seen by physician. Physical Examination: Afebrile vital signs stable Gen: Well-nourished well-developed Head: Normocephalic atraumatic Eyes: Perrl EOMI ENT: TMs clear no rhinorrhea moist mucous membranes Neck: Supple no lymphadenopathy no JVD nontender CVS: Regular rate rhythm no murmurs normal S1-S2 Respiratory: No distress clear to auscultation bilaterally chest nontender Abdomen: Soft nontender nondistended normal bowel sounds no masses Extremity: The foot itself is very unkempt. The plantar surface is very thickened and dirty. Lateral posterior part of the ankle demonstrates 1/2 cm long skin erosion. When I look at her shoe the shoe has been eroded and so now they hard plastic that forms the heel cup is now rubbing against her skin causing the injury. She is advised not to wear those shoes and to pad the area and do local wound care. Medial aspect of the left great toenail demonstrates swelling of the cuticle. There is an area of ecchymosis and inflamed tissue. I do not see any necrosis. The fat pad is soft. There is no lymphangitic streaking. There is no obvious paronychia I. There is minimal redness. I do not see any black hole. I believe what she is describing as the black hole is inflamed tissue surrounded by ecchymosis. Skin: Normal color no rash Neuro: alert orientated ?3 CN II-XII intact normal strength sensation reflexes gait cerebellar Emergency Department Course and Treatment: Patient should do 3 times daily soaks. She should use bacitracin antibiotic ointment 2 times a day and keep the wound dressed. I will write for a few Harrison. The physical exam suggest more of an ingrown toenail then ingrown toenail with infection however we will keep her on the antibiotics. I believe the patient will have better outcome seeing her lift slab operator and having the toenail removed. She will be given a postop shoe. Impression: 1. Ingrown left toenail This note was generated with [employer] dictation software. It may contain incorrect words, spelling, and punctuation that were not noted in review of the chart prior to signing ED Disposition - Plan for ED Patient: Disposition: Home or Assisted Living Chief Complaint: Wound Check Instructions: Understanding Ingrown Toenails Prescriptions: Hydrocodone Bitart/Apap 5-325 [Harrison 5MG-325MG] 1 tab PO Q6H PRN PRN 3 Days #10 tab PRN Reason: Pain Additional Instructions: 1. See your lift slab operator as scheduled 2. Epson salt soaks 3 times daily for 20 minutes each session. 3. Bacitracin ointment 3 times a day. 4. Keep the wound covered when wearing a sock. Otherwise you can allow the wound to be to the air 5. Postop shoe instead of tennis shoe 6. Ibuprofen 800 mg every 8 hours. 7. Harrison sparingly for severe pain
--- NOTE | 2018-04-24 16:33 | ED.DCSUM_ITS ---
- ER Visit Summary Date of Service: 04/24/18 Chief Complaint: Ingrown left toenail History of Present Illness: The patient is a 37 F presents with pain in the left great toe.She states that she was seen in the emergency department yesterday and placed on antibiotics (Cipro and Bactrim. She states that she was told to come back if it got worse and she is feels that it is worse. She states that she normally cannot feel anything in her feet now she feels pain. She reports now having an appointment with her lobbyist at the [facility] on . The patient states that she does her daily once a night soaks with Epsom salts. She has not put a dressing on the wound. She has been wearing so cks and shoes. No fevers. She had x-rays yesterday that were negative. She states that there is a black hole that she is seen. She was upset that she was in the room for 30 minutes last night before seen by physician. Physical Examination: Afebrile vital signs stable Gen: Well-nourished well-developed Head: Normocephalic atraumatic Eyes: Perrl EOMI ENT: TMs clear no rhinorrhea moist mucous membranes Neck: Supple no lymphadenopathy no JVD nontender CVS: Regular rate rhythm no murmurs normal S1-S2 Respiratory: No distress clear to auscultation bilaterally chest nontender Abdomen: Soft nontender nondistended normal bowel sounds no masses Extremity: The foot itself is very unkempt. The plantar surface is very thickened and dirty. Lateral posterior part of the ankle demonstrates 1/2 cm long skin erosion. When I look at her shoe the shoe has been eroded and so now they hard plastic that forms the heel cup is now rubbing against her skin causing the injury. She is advised not to wear those shoes and to pad the area and do local wound care. Medial aspect of the left great toenail demonstrates swelling of the cuticle. There is an area of ecchymosis and inflamed tissue. I do not see any necrosis. The fat pad is soft. There is no lymphangitic streaking. There is no obvious paronychia I. There is minimal redness. I do not see any black hole. I believe what she is describing as the black hole is inflamed tissue surrounded by ecchymosis. Skin: Normal color no rash Neuro: alert orientated ?3 CN II-XII intact normal strength sensation reflexes gait cerebellar Emergency Department Course and Treatment: Patient should do 3 times daily soaks. She should use bacitracin antibiotic ointment 2 times a day and keep the wound dressed. I will write for a few Windsor. The physical exam suggest more of an ingrown toenail then ingrown toenail with infection however we will keep her on the antibiotics. I believe the patient will have better outcome seeing her lobbyist and having the toenail removed. She will be given a postop shoe. Impression: 1. Ingrown left toenail This note was generated with [employer] dictation software. It may contain incorrect words, spelling, and punctuation that were not noted in review of the chart prior to signing ED Disposition - Plan for ED Patient: Disposition: Home or Assisted Living Chief Complaint: Wound Check Instructions: Understanding Ingrown Toenails Prescriptions: Hydrocodone Bitart/Apap 5-325 [Windsor 5MG-325MG] 1 tab PO Q6H PRN PRN 3 Days #10 tab PRN Reason: Pain Additional Instructions: 1. See your lobbyist as scheduled 2. Epson salt soaks 3 times daily for 20 minutes each session. 3. Bacitracin ointment 3 times a day. 4. Keep the wound covered when wearing a sock. Otherwise you can allow the wound to be to the air 5. Postop shoe instead of tennis shoe 6. Ibuprofen 800 mg every 8 hours. 7. Windsor sparingly for severe pain
--- OUTSIDE RECORDS SUMMARY | 2018-06-20 09:15 | XMS RPT_ITS ---
:1980 Author Organization OHIP Support Name Relationship Address Phone MEHDI BAILON Unavailable [address] + [place] [address] D Unavailable Unavailable Unavailable BENJIE WOLF Unavailable [address] + [place] [address] UVALDO MEHDI Unavailable [address] + [place] [address] D Unavailable Unavailable Unavailable BENJIE WOLF Unavailable [address] + [place] [address] UVALDO, MEHDI Unavailable [address] + [place] [address] D Unavailable Unavailable Unavailable BENJIE WOLF Unavailable [address] + [place] [address] UVALDO, MEHDI Unavailable [address] + [place] [address] D Unavailable Unavailable Unavailable BENJIE WOLF Unavailable [address] + [place] [address] UVALDO, MEHDI Unavailable [address] + [place] [address] D Unavailable Unavailable Unavailable BENJIE WOLF Unavailable [address] + [place] [address] UVALDO, MEHDI Unavailable [address] + [place] [address] D Unavailable Unavailable Unavailable BENJIE WOLF Unavailable [address] + [place] [address] UVALDO, MEHDI Unavailable [address] + [place] [address] D Unavailable Unavailable Unavailable BENJIE WOLF Unavailable [address] + [place] [address] UVALDO, MEHDI Unavailable [address] + [place] [address] D Unavailable Unavailable Unavailable GRASKEAGANLEONELBENJIE Unavailable [address] + [place] [address] UVALDO, MEHDI Unavailable [address] + [place] [address] D Unavailable Unavailable Unavailable LUCIANOLEONELBENJIE Unavailable [address] + [place] [address] UVALDO, MEHDI Unavailable [address] + [place] [address] D Unavailable Unavailable Unavailable GRASERLEONELBENJIE Unavailable [address] + [place] [address] UVALDO, MEHDI Unavailable [address] + [place] [address] D Unavailable Unavailable Unavailable LUCIANOLEONELBENJIE Unavailable [address] + [place] [address] UVALDO, MEHDI Unavailable [address] + [place] [address] D Unavailable Unavailable Unavailable LUCIANOLEONELBENJIE Unavailable [address] + [place] [address] UVALDO, MEHDI Unavailable [address] + [place] [address] D Unavailable Unavailable Unavailable LUCIANOLEONELBENJIE Unavailable [address] + [place] [address] UVALDO, MEHDI Unavailable [address] + [place] [address] D Unavailable Unavailable Unavailable LUCIANOLEONELBENJIE Unavailable [address] + [place] [address] UVALDO, MEHDI Unavailable [address] + [place] [address] D Unavailable Unavailable Unavailable LUCIANOLEONELBENJIE Unavailable [address] + [place] [address] UVALDO, MEHDI Unavailable Unavailable + UVALDO MEHDI Unavailable Unavailable + UVALDO, MEHDI Unavailable [address] + [place] [address] D Unavailable Unavailable Unavailable GRASERLEONELBENJIE Unavailable [address] + [place] [address] UVALDO, MEHDI Unavailable [address] + [place] [address] D Unavailable Unavailable Unavailable GRASER, BENJIE Unavailable [address] + [place] [address] UVALDO, MEHDI Unavailable [address] + [place] [address] D Unavailable Unavailable Unavailable GRASERLEONELBENJIE Unavailable [address] + [place] [address] UVALDO, MEHDI Unavailable [address] + [place] [address] D Unavailable Unavailable Unavailable UVALDO, MEHDI Unavailable [address] + [place] [address] D Unavailable Unavailable Unavailable UVALDO, MEHDI Unavailable [address] + [place] [address] D Unavailable Unavailable Unavailable UVALDO, MEHDI Unavailable [address] + [place] [address] D Unavailable Unavailable Unavailable UVALDO, MEHDI Unavailable [address] + [place] [address] D Unavailable Unavailable Unavailable UVALDO, MEHDI Unavailable [address] + [place] [address] D Unavailable Unavailable Unavailable UVALDO, MEHDI Unavailable [address] + [place] [address] D Unavailable Unavailable Unavailable D Unavailable Unavailable Unavailable UVALDO, MEHDI Unavailable [address] + [place] [address] D Unavailable Unavailable Unavailable MARGARET GODOYOTHY Unavailable [address] + [place] [address] UVALDO, MEHDI Unavailable [address] + [place] [address] D Unavailable Unavailable Unavailable WALT ELIZABETH Unavailable [address] + [place] [address] UVALDO, MEHDI Unavailable [address] + [place] [address] D Unavailable Unavailable Unavailable GODOY, ELIZABETH Unavailable [address] + [place] [address] UVALDO, MEHDI Unavailable [address] + [place] [address] D Unavailable Unavailable Unavailable GODOY, ELIZABETH Unavailable [address] + [place] [address] UVALDO, MEHDI Unavailable [address] + [place] [address] D Unavailable Unavailable Unavailable GODOY, ELIZABETH Unavailable [address] + [place] [address] UVALDO, MEHDI Unavailable [address] + [place] [address] UVALDO, MEHDI Unavailable [address] + [place] [address] D Unavailable Unavailable Unavailable GODOY, ELIZABETH Unavailable [address] + [place] [address] UVALDO, MEHDI Unavailable [address] + [place] [address] D Unavailable Unavailable Unavailable GODOY, ELIZABETH Unavailable [address] + [place] [address] UVALDO, MEHDI Unavailable [address] + [place] [address] D Unavailable Unavailable Unavailable GODOY, ELIZABETH Unavailable [address] + [place] [address] UVALDO, MEHDI Unavailable [address] + [place] [address] D Unavailable Unavailable Unavailable GODOY, ELIZABETH Unavailable [address] + [place] [address] UVALDO, MEHDI Unavailable [address] + [place] [address] D Unavailable Unavailable Unavailable GODOY, ELIZABETH Unavailable [address] + [place] [address] UVALDOADAL CORRIGANCK Unavailable [address] + [place] [address] D Unavailable Unavailable Unavailable GODOY, ELIZABETH Unavailable [address] + [place] [address] UVALDOADAL CORRIGANCK Unavailable [address] + [place] [address] D Unavailable Unavailable Unavailable GODOY, ELIZABETH Unavailable [address] + [place] [address] UVALDOADAL CORRIGANCK Unavailable [address] + [place] [address] D Unavailable Unavailable Unavailable GODOY, ELIZABETH Unavailable [address] + [place] [address] UVALDOADAL CORRIGANCK Unavailable [address] + [place] [address] D Unavailable Unavailable Unavailable GODOY, ELIZABETH Unavailable [address] + [place] [address] UVALDOADAL CORRIGANCK Unavailable [address] + [place] [address] D Unavailable Unavailable Unavailable GODOY, ELIZABETH Unavailable [address] + [place] [address] UVALDO, MEHDI Unavailable [address] + [place] [address] D Unavailable Unavailable Unavailable GODOY, ELIZABETH Unavailable [address] + [place] [address] Care Team Providers Name Role Phone Will Dietz Primary Care Unavailable Terrence Ramon Attending Unavailable Will Dietz Attending Unavailable Will Dietz Primary Care Unavailable Will Ditez Attending Unavailable Will Dietz Referring Unavailable Will Dietz Primary Care Unavailable Will Dietz Primary Care Unavailable Celine Caputo Attending Unavailable Will Dietz Primary Care Unavailable Dre Deal Attending Unavailable Nemesio Barriga Attending Unavailable Mirela, Will Referring Unavailable Mirela, Will Primary Care Unavailable Bobby Lee Attending Unavailable Rojas Oates Attending Unavailable Mirela, [...] Attending Unavailable Mirela, Will Primary Care Unavailable O'KeanLionel castroel Referring Unavailable Mirela, Will Primary Care Unavailable Jayson Yost Attending Unavailable Nemesio Josue Attending Unavailable Mirela, Will Referring Unavailable Mirela, Will Primary Care Unavailable Celine Fung Attending Unavailable FungCeline Referring [...] [place] Attending Unavailable Celine Fung Attending Unavailable Fung, Celine Referring Unavailable Mirela, Will Primary Care Unavailable Mirela, Will Primary Care Unavailable Kristen [place] Attending Unavailable Mirela, Will Primary Care Unavailable [place], [place] Admitting Unavailable Reymundo Encarnacion Attending Unavailable Libia, Doug Consulting Unavailable [place], [place] Admitting Unavailable Mirela, Will Primary Care Unavailable [place], [place] Consulting Unavailable [place], [place] Attending Unavailable [place], [place] Admitting Unavailable Jopperi, Reymundo Attending Unavailable Mirela, Will Primary Care Unavailable Libia, Doug Consulting Unavailable Jopperi, Reymundo Consulting Unavailable Mirela, Will Primary Care Unavailable Nemesio Pro Attending Unavailable Mirela, Will Primary Care Unavailable Arnold Caban Attending Unavailable Mirela, Will Primary Care Unavailable Celine Boateng Attending Unavailable Mirela, Will Primary Care Unavailable Nemesio Sanderson Attending Unavailable REYMUNDO SERNA Attending Unavailable MIRELA, WILL A Referring Unavailable MIRELA, WILL A Primary Care Unavailable TESTRAKE, GAVIN Referring Unavailable TESTRAKE, GAVIN Attending Unavailable MIRELA, WILL A Referring Unavailable MIRELA, WILL A Referring Unavailable MIRELA, WILL A Referring Unavailable KEVIN OSORIO Attending Unavailable MEGAN AMADOR (CN) Referring Unavailable TESTRAKE, GAVIN Attending Unavailable TESTRAKE, GAVIN Referring Unavailable TESTRAKE, GAVIN Referring Unavailable TESTRAKE, GAVIN Referring Unavailable TESTRAKE, GAVIN Attending Unavailable TESTRAKE, GAVIN Referring Unavailable MEGAN AMADOR (CN) Referring Unavailable MEGAN AMADOR (CN) Attending Unavailable MIRELA, WILL A Referring Unavailable TESTRAKE, GAVIN Referring Unavailable MIRELA, WILL A Attending Unavailable MIRELA, WILL A Referring Unavailable MIRELA, WILL A Referring Unavailable TESTRAKE, GAVIN Attending Unavailable TESTRAKE, GAVIN Referring Unavailable MIRELA, WILL A Referring Unavailable TESTRAKE, GAVIN Attending Unavailable TESTRAKE, GAVIN Referring Unavailable MIRELA, WILL A Attending Unavailable MIRELA, WILL A Referring Unavailable MIRELA, WILL A Referring Unavailable MIRELA, WILL A Referring Unavailable NETTA HIGGINS (SAVANA) Attending Unavailable MIRELA, WILL A Attending Unavailable MIRELA, WILL A Referring Unavailable MIRELA, WILL A Referring Unavailable ABBE MILLAN (TELECOMMUNICATIONS LINESWORKER) Attending Unavailable ABBE MILLAN (TELECOMMUNICATIONS LINESWORKER) Referring Unavailable ABBE MILLAN (TELECOMMUNICATIONS LINESWORKER) Attending Unavailable MIRELA, WILL A Referring Unavailable MIRELA, WILL A Referring Unavailable MIRELA, WILL A Attending Unavailable MIRELA, WILL A Referring Unavailable FAWN COYNE Attending Unavailable MARIANA CORDERO Referring Unavailable MIRELA, WILL Morrow Attending Unavailable MIRELA, WILL A Referring Unavailable MIRELA, WILL A Referring Unavailable MIRELA, WILL A Referring Unavailable JEZ NG MD Attending Unavailable PHYSICIAN, NONE Primary Care Unavailable ALI, NOAMAN Attending Unavailable FAWN COYNE [...] Primary Care Unavailable ANNAMARIA PETERSEN Attending Unavailable PROBLEMS PROBLEMS DATE TYPE CONDITION / CODE ATTENDING STATUS SOURCE 04/24/2018 Unknown L60.0 - Ingrowing Nemesio Sanderson Active [place] nail / L60.0(ICD-10) [facility] Hospital Repository 03/03/2018 Unknown E11.9 - Type 2 Deal, Dre Active [place] diabetes mellitus Community without Hospital complications / Repository E11.9(ICD-10) 03/03/2018 Unknown Q05.7 - Lumbar spina Deal, Dre Active [place] bifida without Community hydrocephalus / Hospital Q05.7(ICD-10) Repository 03/03/2018 Unknown S30.0XXA - Contusion Deal, Dre Active [place] of lower back and Community pelvis, initial Hospital encounter / Repository S30.0XXA(ICD-10) 04/17/2018 Unknown Q05.9 - Spina Fung, Active [place] bifida, unspecified [place] Community / Q05.9(ICD-10) Hospital Repository 01/23/2018 Unknown 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[place], Active [place] [facility] E04.1(ICD-10) Repository 01/01/2018 Active Nontoxic single NA Active [place] thyroid nodule / Clinic Main E04.1(ICD-10) [place] Repository 12/26/2017 Active Contusion of NICOLA, Active [place] abdominal wall, ANNAMARIA ADLER Clinic Other initial encounter / [place] S30.1XXA(ICD-10) Repository 12/24/2017 Unknown R10.819 - Abdominal Cornici, Jayson Active [place] tenderness, Community unspecified site / Hospital R10.819(ICD-10) Repository 12/11/2017 Active Other specified ALI, NOAMAN Active [place] postprocedural Clinic Other states / [place] Z98.890(ICD-10) Repository 12/11/2017 Active Personal history of ALI, NOAMAN Active [place] other diseases of Clinic Other the digestive system [place] / Z87.19(ICD-10) Repository 05/04/2016 Active Tubulo-interstitial NA Active [place] nephritis, not Clinic Main specified as acute [place] or chronic / Repository N12(ICD-10) 12/25/2013 Active Urinary tract NA Active [place] infection, site not Clinic Main specified / [place] N39.0(ICD-10) Repository 10/17/2017 Active Incisional hernia ALI NOHUMA Active [place] with obstruction, Clinic Other without gangrene / [place] K43.0(ICD-10) Repository 10/17/2017 Admitting Unknown / ALI NOHUMA S Active [facility] diagnosis UNK(Unknown) Health System Repository 10/18/2016 Active Type 2 diabetes NA Active [place] mellitus with other Clinic Main diabetic kidney [place] complication / Repository E11.29(ICD-10) 10/18/2016 Active Proteinuria, NA Active [place] unspecified / Clinic Main R80.9(ICD-10) [place] Repository 10/10/2017 Active Type 2 diabetes NA Active [place] mellitus without Clinic Main complications / [place] E11.9(ICD-10) Repository 08/04/2017 Active Type 2 diabetes NA Active [place] mellitus with other Clinic Main diabetic [place] neurological Repository complication / E11.49(ICD-10) 07/28/2017 Active Excessive and NA Active [place] frequent Clinic Main menstruation with [place] irregular cycle / Repository N92.1(ICD-10) 07/28/2017 Active Irregular NA Active [place] menstruation, Clinic Main unspecified / [place] N92.6(ICD-10) Repository 07/27/2017 Active Non-pressure chronic NA Active [place] ulcer of other part Clinic Main of left foot with [place] fat layer exposed / Repository L97.522(ICD-10) 07/27/2017 Active Unknown / TESTRAKE, Active [place] UNK(Unknown) GAVIN [facility] Repository 08/11/2017 Unknown R07.89 - Other chest Mirela Donnie [place] pain / [facility] R07.89(ICD-10) Hospital Repository 06/02/2017 Active Palpitations / NA Active [place] R00.2(ICD-10) [facility] Main [place] Repository 06/02/2017 Active Myalgia / NA Active [place] M79.1(ICD-10) [facility] [place] Repository 06/02/2017 Active Other general NA Active [place] symptoms and signs / [facility] Main R68.89(ICD-10) [place] Repository PROCEDURES PROCEDURES No Procedure Records FoundRESULTS RESULTS EMERGENCY DEPARTMENT Observed: 05/11/2018 Status: F Source: [place] SUMMARY 12:18 PM [facility] REPOSITORY [facility] Medical Records Department [address] [place] [address] Emergency Department Summary 05/11/18 1140 MR#: [id number] Acct: [id number] Name: DEBBY BAILON Rep #: [id number] : 1980 37 From: Terrence Ramon MD [...] Dysuria, headache This note was generated with [employer] dictation software. It may contain incorrect words, [...] your Primary Care Provider. Call [facility] ([phone]) or report to the closest Emergency Room. Call 911 if necessary. 05/11/188 <Electronically signed by Terrence Ramon MD> Date Terrence Ramon MD Cosigner Signature (If Indicated): Date CC: Will Dietz MD DISCHARGE INSTRUCTION Observed: 05/11/2018 Status: F Source: [place] 12:18 PM [facility] REPOSITORY [facility] Medical Records Department [address] [place] [address] Discharge Instruction 05/11/181217 MR#: [id number] Acct: [id number] Name: DEBBY BAILON Rep #: [id number] : 1980 37 From: Terrence Ramon MD [...] your Primary Care Provider. Call [facility] ([phone]) or report to the closest Emergency Room. Call 911 if necessary. 05/11/18 1218 <Electronically signed by Terrence Ramon MD> Date Terrence Roman Signature (If Indicated): Date CC: Will Dietz MD URINALYSIS, COMPLETE Collected: 05/11/2018 Status: F Source: [place] 11:45 AM [facility] REPOSITORY Order Comment: How was Urine Obtained? INSTANT PRINT OPERATOR TO SPECIFY TYPE CODE TESTS RESULT OUT [...] Performed By: #### L400.0001 #### [facility] [address] [place], [address] ,URINE Collected: 05/11/2018 Status: F Source: [place] 11:45 AM [facility] REPOSITORY TYPE CODE TESTS RESULT OUT OF REFERENCE UNITS RANGE LAB L400.8000 Negative Normal HCGUQUAL Negative Result Comment: Very dilute urine specimens, as indicated by a low specific gravity, may not contain customer development representative levels of hCG. If is still suspected, a first morning urine specimen should be collected 48 hours later and tested. Performed By: #### L400.7600 #### [facility] [address] [place], [address] PROGRESS Observed: 05/09/2018 Status: COMPLETED Source: [place] 10:51 AM [facility] [place] REPOSITORY HNO ID: [id number] Author: Will Dietz Service: (none) Author Type: [...] 12/05/2017 - Dysthymic disorder Depression (non-psychotic), sees TELECOMMUNICATIONS LINESWORKER at [facility]. - History of kidney stones 01/04/2016 - [...] 02/12/2015 - Neurogenic bowel 01/06/2016 - Neuropathy ([facility]) 02/12/2015 post back surgery with secondary infection. [...] E13.29 Insulin: No Blood-Glucose Meter (ACCU-CHEK ANISH) [facility] Dispense 1 meter kit. Dx: Other DM [...] daily as needed. 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 - History of kidney stones 01/04/2016 - [...] 02/12/2015 - Neurogenic bowel 01/06/2016 - Neuropathy ([facility]) 02/12/2015 post back surgery with secondary infection. Seeing Dr. Gregg - Numbness and tingling of left arm and leg 08/07/2013 - Panic attacks - Paroxysmal SVT (supraventricular tachycardia) ([facility]) 07/03/2017 Per 48 Hr event monitor 06/30/2017 [...] E13.29 Insulin: No Blood-Glucose Meter (ACCU-CHEK ANISH) [facility] Dispense 1 meter kit. Dx: Other DM [...] daily as needed. 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 - History of kidney stones 01/04/2016 - [...] 02/12/2015 - Neurogenic bowel 01/06/2016 - Neuropathy ([facility]) 02/12/2015 post back surgery with secondary infection. Seeing Dr. Gregg - Numbness and tingling of left arm and leg 08/07/2013 - Panic attacks - Paroxysmal SVT (supraventricular tachycardia) ([facility]) 07/03/2017 Per 48 Hr event monitor 06/30/2017 - Primary insomnia 02/17/2016 - Spina bifida ([facility]) 01/06/2016 - Thyroid cyst 01/01/2018 Complex right [...] one week increase to 1.2mg daily Insulin [place], Disposable, 32 gauge x 5/16 ndle Use [...] mouth as needed. Blood-Glucose Meter (ACCU-CHEK ANISH) [facility] Dispense 1 meter kit. Dx: Other DM [...] DPM PROGRESS Observed: 05/03/2018 Status: COMPLETED Source: [place] 10:53 AM [facility] REPOSITORY HNO ID: [id number] Author: Elizabeth Olvera Service: (none) Author Type: (none) Type: Progress Notes Filed: 05/03/2018 12:23 PM Note Text: AMB ROOMING INTAKE FLOWSHEET DATA Risk Screening Do you have concerns about personal safety or safety in the home?: No Patient presents for 1 week post nail avulsion, left medial Hallux. Elizabeth KUNZOV Observed: 05/03/2018 Status: COMPLETED Source: [place] 10:40 AM [facility] REPOSITORY Office Visit (PODIWS) UVALDODEBBY ([id number]) 1980 F Date Time Provider Department 05/03/18 [...] 12/05/2017 - Dysthymic disorder Depression (non-psychotic), sees TELECOMMUNICATIONS LINESWORKER at [facility]. - History of kidney stones 01/04/2016 - [...] Panic attacks - Paroxysmal SVT (supraventricular tachycardia) ([facility]) 07/03/2017 Per 48 Hr event monitor 06/30/2017 - Primary insomnia 02/17/2016 - Spina bifida (HCC) 01/06/2016 - Thyroid cyst 01/01/2018 Complex right sided cysts. US 12/2017, biopsy per Dr. Josue 01/23/2018 benign. Repeat US in a year. - Type 2 diabetes mellitus with albuminuria ([facility]) 10/18/2016 - Type 2 diabetes mellitus with proteinuria ([facility]) 02/19/2016 - Ulcer of left foot ([facility]) 02/21/2017 - Ventral hernia without obstruction or gangrene - Weakness of both upper extremities 08/07/2013 Chronic Current Outpatient Prescriptions: liraglutide (VICTOZA) 0.6 mg/ 0.1 ml subcutaneous pen injector Inject 0.6 mg subcutaneously once daily. After one week increase to 1.2mg daily Insulin [place], Disposable, 32 gauge x 5/16 ndle Use [...] mouth as needed. Blood-Glucose Meter (ACCU-CHEK ANISH) [facility] Dispense 1 meter kit. Dx: Other DM [...] and 2nd toes Referring Provider: GAVIN GOMEZ [[id number]] Allergies As of Date: 05/03/2018 Noted Allergy [...] Pyelonephritis [N12] INVALID FOR* Diabetic eye exam ([facility]) [Z01.00, E11.9] INVALID FOR* More... Migraine without aura and without status migrai*INVALID FOR*02/28/2018 Type 2 diabetes mellitus with albuminuria ([facility])*INVALID FOR* Well adult exam [Z00.00] INVALID FOR* [...] 05/03/18 PROGRESS Observed: 04/30/2018 Status: COMPLETED Source: [place] 3:30 PM [facility] REPOSIT[facility] ID: [id number] Author: Emely Aguiar (Pharmacist) Service: (none) Author [...] Adherence: denies missed doses. ? Pharmacy: [facility] ? Rx coverage: Medicare [employer] ? Affordability: no issues ? Diabetes supplies: [facility] meter ? 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[facility]) Lumbago Neuropathy ([facility]) Morbid Obesity ([facility]) Chronic Pain Neurogenic Bladder Hydronephrosis, Right History of Kidney Stones Spina Bifida ([facility]) Neurogenic Bowel Primary Insomnia Type 2 Diabetes Mellitus With Proteinuria ([facility]) Pyelonephritis Diabetic Eye Exam ([facility]) Type 2 Diabetes Mellitus With Albuminuria ([facility]) Well Adult Exam Paroxysmal Svt (Supraventricular Tachycardia) ([facility]) Dm (Diabetes Mellitus), Secondary, Uncontrolled, W/Renal Complications ([facility]) S/P Hernia Repair Thyroid Cyst Migraine Without [...] DM (diabetes mellitus), secondary, uncontrolled, w/renal complications ([facility]) 12/05/2017 - Dysthymic disorder Depression (non-psychotic), sees TELECOMMUNICATIONS LINESWORKER at [facility]. - History of kidney stones 01/04/2016 - [...] 02/12/2015 - Neurogenic bowel 01/06/2016 - Neuropathy ([facility]) 02/12/2015 post back surgery with secondary infection. Seeing Dr. Gregg - Numbness and tingling of left arm and leg 08/07/2013 - Panic attacks - Paroxysmal SVT (supraventricular tachycardia) ([facility]) 07/03/2017 Per 48 Hr event monitor 06/30/2017 - Primary insomnia 02/17/2016 - Spina bifida ([facility]) 01/06/2016 - Thyroid cyst 01/01/2018 Complex right sided cysts. US 12/2017, biopsy per Dr. Josue 01/23/2018 benign. Repeat US in a year. - Type 2 diabetes mellitus with albuminuria ([facility]) 10/18/2016 - Type 2 diabetes mellitus with proteinuria ([facility]) 02/19/2016 - Ulcer of left foot ([facility]) 02/21/2017 - Ventral hernia without obstruction or [...] E13.29 Insulin: No Blood-Glucose Meter (ACCU-CHEK ANISH) [facility] Dispense 1 meter kit. Dx: Other DM [...] patient to continue checking FBGs daily, contact [facility] Medical re: DM supplies ? Labs in April Health Maintenance issues addressed: DILATED RETINAL EXAM due on 01/25/2018 Patient is scheduled to see PCP 05/09. Patient to return to clinic for PharmD f/u on 06/05. Patient verbalized understanding of instructions. Emely Aguiar, [place], BCPS CNOV Observed: 04/30/2018 Status: COMPLETED Source: [place] 3:30 PM [facility] REPOSITORY Office Visit (PHMEWO) DEBBY BAILON ([id number]) 1980 F Date Time Provider Department 04/30/18 3:30 PM COSME (PHARMACIST), EMELY BENSON During your visit today, we recorded the following information about you: DWAYNE RUTLEDGE 04/30/2018 4:25 PM Signed Patient consents to [...] Adherence: denies missed doses. ? Pharmacy: [facility] ? Rx coverage: Medicare [employer] ? Affordability: no issues ? Diabetes supplies: [facility] meter ? 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Hcc) Lumbago Neuropathy ([facility]) Morbid Obesity ([facility]) Chronic Pain Neurogenic Bladder Hydronephrosis, Right History of Kidney Stones Spina Bifida ([facility]) Neurogenic Bowel Primary Insomnia Type 2 Diabetes Mellitus With Proteinuria ([facility]) Pyelonephritis Diabetic Eye Exam ([facility]) Type 2 Diabetes Mellitus With Albuminuria ([facility]) Well Adult Exam Paroxysmal Svt (Supraventricular Tachycardia) ([facility]) Dm (Diabetes Mellitus), Secondary, Uncontrolled, W/Renal Complications ([facility]) S/P Hernia Repair Thyroid Cyst Migraine Without [...] DM (diabetes mellitus), secondary, uncontrolled, w/renal complications ([facility]) 12/05/2017 - Dysthymic disorder Depression (non-psychotic), sees TELECOMMUNICATIONS LINESWORKER at [facility]. - History of kidney stones 01/04/2016 - [...] 02/12/2015 - Neurogenic bowel 01/06/2016 - Neuropathy ([facility]) 02/12/2015 post back surgery with secondary infection. Seeing Dr. Gregg - Numbness and tingling of left arm and leg 08/07/2013 - Panic attacks - Paroxysmal SVT (supraventricular tachycardia) ([facility]) 07/03/2017 Per 48 Hr event monitor 06/30/2017 - Primary insomnia 02/17/2016 - Spina bifida ([facility]) 01/06/2016 - Thyroid cyst 01/01/2018 Complex right [...] E13.29 Insulin: No Blood-Glucose Meter (ACCU-CHEK ANISH) [facility] Dispense 1 meter kit. Dx: Other DM [...] patient to continue checking FBGs daily, contact [facility] Medical re: DM supplies ? Labs in April Health Maintenance issues addressed: DILATED RETINAL EXAM due on 01/25/2018 Patient is scheduled to see PCP 05/09. Patient to return to clinic for PharmD f/u on 06/05. Patient verbalized understanding of instructions. Emely Aguiar PharmD, [facility] EMELY AGUIAR PHARMACIST 04/30/2018 4:04 PM Signed [facility] Medical - glucometer, test strips, how to get from them Victoza 0.6mg daily, after one week 1.2mg daily Stop glimepiride Check sugars every morning before breakfast Bring machine next appointment Emely Aguiar PharmD, BCPS [phone] Referring Provider: WILL DIETZ [[id number]] Allergies As of Date: 04/30/2018 Noted Allergy Reaction MUSHROOM 06/10/2016 10 - Anaphylaxis PEANUTS 06/10/2016 10 - Anaphylaxis MRI CONTRAST (GADOLINIUM-CONTAINI*01/03/2017 8 - GI Upset Date Reviewed: 04/26/2018 Reviewed by: Bernard (Carol) Dimple - Fully Assessed Reason for Visit: Allied Health Visit [5] Cmt: DM initial Reason For Visit History Recorded Primary Visit Diagnosis:DM (diabetes mellitus), secondary, uncontrolled, w/renal complications (HCC) [E13.29, E13.65] Order(s):liraglutide (VICTOZA) 0.6 mg/ 0.1 ml subcutaneous pen injectorInject 0.6 mg subcutaneously once daily. After one week increase to 1.2mg dailyDisp: 2 PenRfl: 1 Insulin [place], Disposable, 32 gauge x 5/16 ndleUse once [...] breakfast Bring machine next appointment Emely Aguiar, PharmD, [facility] [phone] Prescriptions ordered this encounter Disp Refills Start [...] 04/30/18 PROGRESS Observed: 04/26/2018 Status: COMPLETED Source: [place] 10:32 AM [facility] REPOSITORY HNO ID: [id number] Author: Brittney Cook RN Service: (none) Author [...] RN PROGRESS Observed: 04/26/2018 Status: COMPLETED Source: [place] 9:47 AM [facility] REPOSITORY HNO ID: [id number] Author: Gavin Gomez Service: (none) Author Type: [...] DM (diabetes mellitus), secondary, uncontrolled, w/renal complications ([facility]) 12/05/2017 - Dysthymic disorder Depression (non-psychotic), sees TELECOMMUNICATIONS LINESWORKER at [facility]. - History of kidney stones 01/04/2016 - [...] Panic attacks - Paroxysmal SVT (supraventricular tachycardia) ([facility]) 07/03/2017 Per 48 Hr event monitor 06/30/2017 - Primary insomnia 02/17/2016 - Spina bifida (HCC) 01/06/2016 - Thyroid cyst 01/01/2018 Complex right sided cysts. US 12/2017, biopsy per Dr. Josue 01/23/2018 benign. Repeat US in a year. - Type 2 diabetes mellitus with albuminuria ([facility]) 10/18/2016 - Type 2 diabetes mellitus with [...] mouth as needed. Blood-Glucose Meter (ACCU-CHEK ANISH) [facility] Dispense 1 meter kit. 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 - History of kidney stones 01/04/2016 - [...] 02/12/2015 - Neurogenic bowel 01/06/2016 - Neuropathy ([facility]) 02/12/2015 post back surgery with secondary infection. Seeing Dr. Gregg - Numbness and tingling of left arm and leg 08/07/2013 - Panic attacks - Paroxysmal SVT (supraventricular tachycardia) ([facility]) 07/03/2017 Per 48 Hr event monitor 06/30/2017 - Primary insomnia 02/17/2016 - Spina bifida (HCC) 01/06/2016 - Thyroid cyst 01/01/2018 Complex right sided cysts. US 12/2017, biopsy per Dr. Josue 01/23/2018 benign. Repeat US in a year. - Type 2 diabetes mellitus with albuminuria ([facility]) 10/18/2016 - Type 2 diabetes mellitus with proteinuria ([facility]) 02/19/2016 - Ulcer of left foot ([facility]) 02/21/2017 - Ventral hernia without obstruction or [...] mouth as needed. Blood-Glucose Meter (ACCU-CHEK ANISH) [facility] Dispense 1 meter kit. Dx: Other DM [...] as well if you have any questions/concerns [phone], ask for Podiatry Nurse Referring Provider: GAVIN GOMEZ [[id number]] Allergies As of Date: 04/26/2018 Noted Allergy [...] as well if you have any questions/concerns [phone], ask for Podiatry Nurse Disposition: Return in about 1 week (around 05/03/2018) for ingrown toenail and ulcer, L ankle. Follow-up and Disposition History Recorded Encounter Status:Closed by GAVIN GOMEZ DPM on 04/27/18 EMERGENCY DEPARTMENT Observed: 04/26/2018 Status: F Source: [place] SUMMARY 8:16 [facility] REPOSITORY [facility] Medical Records Department [address] [place] [address] Emergency Department Summary 04/24/18 1628 MR#: [id number] Acct: [id number] Name: DEBBY BAILON Rep #: [id number] : 1980 37 From: Nemesio Sanderson DO [...] reports now having an appointment with her pipe smoking machine offbearer at the [facility] on . The patient states that [...] dressed. I will write for a few [place]. The physical exam suggest more of an ingrown toenail then ingrown toenail with infection however we will keep her on the antibiotics. I believe the patient will have better outcome seeing her pipe smoking machine offbearer and having the toenail removed. She will be given a postop shoe. Impression: 1. Ingrown left toenail This note was generated with [employer] dictation software. It may contain incorrect words, spelling, and punctuation that were not noted in review of the chart prior to signing ED Disposition - Plan for ED Patient: Disposition: Home or Assisted Living Chief Complaint: Wound Check Instructions: Understanding Ingrown Toenails Prescriptions: Hydrocodone Bitart/Apap 5-325 [[place] 5MG-325MG] 1 tab PO Q6H PRN PRN 3 Days #10 tab PRN Reason: Pain Additional Instructions: 1. See your pipe smoking machine offbearer as scheduled 2. Epson salt soaks 3 times daily for 20 minutes each session. 3. Bacitracin ointment 3 times a day. 4. Keep the wound covered when wearing a sock. Otherwise you can allow the wound to be to the air 5. Postop shoe instead of tennis shoe 6. Ibuprofen 800 mg every 8 hours. 7. [place] sparingly for severe pain What to do if you have Problems For any increased pain, shortness of breath, bleeding, nausea or vomiting, chest pain, or any unexpected problems, contact your Primary Care Provider. Call [facility] ([phone]) or report to the closest Emergency Room. Call 911 if necessary. 04/26/18 3197 <Electronically signed by Nemesio La Cygne DO> Date Nemesio Sanderson DO Cosigner Signature (If Indicated): Date CC: Will Dietz MD EMERGENCY DEPARTMENT Observed: 04/23/2018 Status: F Source: [place] SUMMARY 8:29 PM [facility] REPOSITORY [facility] Medical Records Department [address] [place] [address] Emergency Department Summary 04/23/18 1918 MR#: [id number] Acct: [id number] Name: DEBBY BAILON Rep #: [id number] : 1980 37 From: Celine Boateng MD [...] her pain had increased. She called her pipe smoking machine offbearer today and was referred to the emergency [...] 3 days. She has follow-up with her pipe smoking machine offbearer tomorrow. At this time, I do not [...] left foot This note was generated with [employer] dictation software. It may contain incorrect words, [...] your Primary Care Provider. Call [facility] ([phone]) or report to the closest Emergency Room. Call 911 if necessary. 04/23/182028 <Electronically signed by Celine Boateng MD> Date Celine Boateng MD Cosigner Signature (If Indicated): Date CC: Will Dietz MD FOOT MIN 3 VIEWS Observed: 04/23/2018 Status: F Source: [place] 6:43 PM [facility] REPOSITORY [facility] Imaging Services [address] [place], [place] [address] [address] Foot min 3 Views MR#: [id number] Acct: [id number] Name: DEBBY BAILON Rep #: [id number] : 1980 F 37 From: Alexander Peck MD PCP: Will Dietz MD Status: REG ER Study: Foot min 3 Views Date of Exam: 04/23/18 Exam# [id number] Ordering Dr: Celine Boateng MD STUDY: X-RAY [...] CC: Will Dietz MD; Celine Boateng MD Comb Winder: Signed EMERGENCY DEPARTMENT Observed: 04/14/2018 Status: F Source: [place] SUMMARY 6:10 PM [facility] REPOSITORY [facility] Medical Records Department [address] [place] [address] Emergency Department Summary 04/14/18 1516 MR#: [id number] Acct: [id number] Name: DEBBY BAILON Rep #: [id number] : 1980 37 From: Arnold Brice PCP: [...] Patient understands. She has a urologist with [facility]. Treatment Plan: [] Disposition: Discharge Impression: 1. Urinary tract infection 2. Left flank pain This note was generated with [employer] Limited[employer] software. It may contain incorrect words, spelling, [...] your Primary Care Provider. Call [facility] ([phone]) or report to the closest Emergency Room. Call 911 if necessary. 04/14/18 1810 <Electronically signed by Arnold Brice> Date Arnold Brice Cosigner Signature (If Indicated): Date CC: Will Dietz MD URINALYSIS, COMPLETE Collected: 04/14/2018 Status: F Source: [place] 4:44 PM [facility] REPOSITORY Order Comment: Order Date: 04/14/18 Has [...] Performed By: #### L400.0001 #### [facility] [address] [place], [place], [address] Observed: 04/14/2018 Status: F Source: [place] CULTURE, URINE 4:44 PM [facility] REPOSITORY Order Date: 04/14/18 Has pt arrived? Y Urine Culture ORGANISM 1: Streptococcus mitis/ oralis [place] Count >100,000 ORGANISM 2: Staphylococcus epidermidis [place] Count 80,000-100,000 Streptococcus mitis/ oralis: REACTION Ampicillin $ 1 I Benzylpenicillin NF 0.25 I Cefotaxime $ <=0.12 S Ceftriaxone $ <=0.12 S Vancomycin $ 0.25 S (NF) indicates non-formulary drug at [facility]. Approval by Infectious Disease Specialist [...] (NF) indicates non-formulary drug at [facility]. Approval by Infectious Disease Specialist required before non-formulary drugs may be ordered and/or dispensed. * CLSI guidelines does not recommend testing of cephalosporins. This interpretation is deduced from Beta-lactam/penicillin results. Performed By: #### M100.0650 #### [facility] [address] [place], [place], [address] CBC W/DIFF, AUTOMATED Collected: 04/14/2018 Status: F Source: [place] 3:25 PM [facility] REPOSITORY TYPE CODE TESTS RESULT OUT OF [...] Performed By: #### L100.0100 #### [facility] [place], [address] BASIC METABOLIC Collected: 04/14/2018 Status: F Source: [place] PROFILE (BMP) 3:25 PM [facility] REPOSITORY TYPE CODE TESTS RESULT OUT OF [...] Performed By: #### L500.2500 #### [facility] [address] [facility] [place], [address] DISCHARGE INSTRUCTION Observed: 04/14/2018 Status: F Source: [place] 12:55 AM [facility] REPOSITORY [facility] Medical Records Department [address] [place] [address] Discharge Instruction 04/13/18 1935 MR#: [id number] Acct: [id number] Name: DEBBY BAILON Rep #: [id number] : 1980 37 From: Nemesio Pro MD [...] your Primary Care Provider. Call [facility] ([phone]) or report to the closest Emergency Room. Call 911 if necessary. 04/14/18 0055 <Electronically signed by Nemesio Pro MD> Date Nemesio Pro MD Cosigner Signature (If Indicated): Date CC: Will Dietz MD EMERGENCY DEPARTMENT Observed: 04/14/2018 Status: F Source: [place] SUMMARY 12:55 AM [facility] REPOSITORY [facility] Medical Records Department [address] [place] [address] Emergency Department Summary 04/13/18 1840 MR#: [id number] Acct: [id number] Name: DEBBY BAILON Rep #: [id number] : 1980 37 From: Nemesio Pro MD [...] 1. Constipation This note was generated with [employer] dictation software. It may contain incorrect words, [...] problems, contact your Primary Care Provider. Call [facility] ([phone]) or report to the closest Emergency Room. Call 911 if necessary. 04/14/18 0055 <Electronically signed by Nemesio Pro MD> Date Nemesio Pro MD Cosigner Signature (If Indicated): Date CC: Will Dietz MD CBC W/DIFF, AUTOMATED Collected: 04/13/2018 Status: F Source: [place] 4:25 PM [facility] REPOSITORY TYPE CODE TESTS RESULT OUT OF [...] Performed By: #### L100.0100 #### [facility] [address] [place], [place], [address] COMPREHENSIVE METABOLIC Collected: 04/13/2018 Status: F Source: [place] [facility] 4:25 PM [facility] REPOSITORY TYPE CODE TESTS RESULT OUT OF [...] By: #### L500.4050, L501.2450 #### [facility] [address] [place], [address] LIPASE Collected: 04/13/2018 Status: F Source: [place] 4:25 PM [facility] REPOSITORY TYPE CODE TESTS RESULT OUT OF RANGE REFERENCE UNITS LAB L501.2450 73-393 U/L Normal LIPASE 78 Performed By: #### L500.4050, L501.2450 #### [facility] [address] [place], [address] ,SERUM,HCG QUALI. Collected: Status: F Source: [place] 04/13/2018 4:25 PM [facility] REPOSITORY TYPE CODE TESTS RESULT OUT OF REFERENCE UNITS RANGE LAB L700.7000 0-9 Nonpreg Negative Normal HCGSQUAL NEGATIVE LAB L700.6700 =>Qualitative mIU/mL Normal HCG Qual < 1 triggr Performed By: #### L700.6800 #### [facility] [address] [facility] [address] [place], [place], [address] URINALYSIS, COMPLETE Collected: 04/13/2018 Status: F Source: [place] 4:10 PM [facility] REPOSITORY Order Comment: How was Urine Obtained? [...] Performed By: #### L400.0001 #### [facility] [address] [place], [address] Observed: 04/13/2018 Status: F Source: [place] CULTURE, URINE 4:10 PM [facility] REPOSITORY Urine Culture ORGANISM 1: Mixed Gram Positive Organisms [place] Count >100,000 MIX CULTURE Mixed contaminants. Submit a new specimen if indicated. Performed By: #### M100.0650 #### [facility] [address] [place], [place], [address] ABDOMEN/PELVIS WITH Observed: 04/13/2018 Status: F Source: [place] CONTRAST 3:43 PM [facility] REPOSITORY [facility] Imaging Services [address] [place] [address] Abdomen/Pelvis WITH Contrast MR#: [id number] Acct: [id number] Name: DEBBY BAILON Rep #: [id number] : 1980 F 37 From: Will Joe MD PCP: Will Dietz MD Status: REG ER Study: Abdomen/Pelvis WITH Contrast Date of Exam: 04/13/18 Exam# [id number] Ordering Dr: Nemesio Pro MD STUDY: CT [...] CC: Nemesio Pro MD; Will Dietz MD Comb Winder: Signed DISCHARGE SUMMARY Observed: 04/12/2018 Status: F Source: [place] 11:04 AM [facility] REPOSITORY [facility] Medical Records Department [facility] [place] [address] Discharge Summary 04/12/18 1056 MR#: [id number] Acct: [id number] Name: DEBBY BAILON Rep #: [id number] : 1980 37 From: Reymundo Encarnacion DO PCP: Will Dietz MD Status: ADM OLEG Y Location: [place] [address] Discharge Date and Diagnosis - Problem List Patient Problems: Active and Suspected Problems (Last Reviewed 01/30/18 @ 14:24 by Lauren Rivas) Constipation (Acute) Date of Admission: 04/11/18 [...] release other specialists as her OARRS reports [facility] physicians providing some controlled substances at [...] Patient instructed to follow-up with her regular mammographer at [facility]. Patient states that she is not [...] applicable Code Visit OBSV E AND M: [id number] Observation care discharge 04/12/18 1104 <Electronically signed by Reymundo Encarnacion DO> Date Reymundo Encarnacion DO Cosigner Signature (if applicable): Date CC: Reymundo Encarnacion DO; Will Deitz MD Signed DISCHARGE INSTRUCTION Observed: 04/12/2018 Status: F Source: [place] 10:56 AM [facility] REPOSITORY [facility] Medical Records Department [address] [place] [address] Instructions for Home/Discharge Instructions 04/12/18 1054 MR#: [id number] Acct: [id number] Name: DEBBY BAILON Rep #: [id number] : 1980 37 From: Reymundo Encarnacion DO [...] BEDSIDE GLUCOSE Collected: 04/12/2018 Status: F Source: [place] 8:18 AM [facility] REPOSITORY TYPE CODE TESTS RESULT OUT OF REFERENCE UNITS RANGE LAB L501.080 70-110 mg/dL High BEDSIDE GLU 208 Result Comment: MANAGEMENT OF PATIENT CARE PER NURSING PROTOCOL Performed By: #### L501.080 #### [facility] Point of Care [address] [facility] [place] [address] CONSULTATION Observed: 04/12/2018 Status: F Source: [place] 7:44 AM [facility] REPOSITORY [facility] Medical Records Department [address] [place] [address] Consultation 04/12/18 0741 MR#: [id number] Acct: [id number] Name: DEBBY BAILON Colette Rep #: [id number] : 1980 37 From: Herbert Reza MD PCP: Will Dietz MD Status: ADM OLEG Y Location: [place] [address] Problem List (1) Hydronephrosis Status: Acute Qualifiers: [...] she is followed by urologist at the [facility]. Most likely this hydronephrosis is due [...] ventral hernia repair. 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 [place], [place], [address] BASIC METABOLIC Collected: 04/12/2018 Status: F Source: [place] PROFILE ([facility]) 5:46 AM [facility] REPOSITORY TYPE CODE TESTS RESULT OUT OF [...] Performed By: #### L500.2500 #### [facility] [address] [facility] [address] [place], [place], [address] ABDOMEN/PELVIS WITHOUT Observed: 04/12/2018 Status: F Source: [place] CONT 12:56 AM [facility] REPOSITORY [facility] Imaging Services [address] [place] [address] Abdomen/Pelvis without Cont MR#: [id number] Acct: [id number] Name: DEBBY BAILON Rep #: [id number] : 1980 F 37 From: Gavin Sanchez MD PCP: Will Dietz MD Status: ADM OLEG Study: Abdomen/Pelvis without Cont Date of Exam: 04/12/18 Exam# [id number] Ordering Dr: Gen Butt MD HISTORY: SEVERE [...] CC: Will Dietz MD; Gen Butt MD Comb Winder: Signed BEDSIDE GLUCOSE Collected: 04/11/2018 Status: F Source: [place] 10:17 PM [facility] REPOSITORY TYPE CODE TESTS RESULT OUT OF REFERENCE UNITS RANGE LAB L501.080 70-110 mg/dL High BEDSIDE GLU 158 Result Comment: MANAGEMENT OF PATIENT CARE PER NURSING PROTOCOL Performed By: #### L501.080 #### [facility] Point [address] [address] HISTORY AND PHYSICAL Observed: 04/11/2018 Status: F Source: [place] EXAM 8:24 PM [facility] REPOSITORY [facility] Medical Records Department [address] [place] [address] History and Physical 04/11/18 1706 MR#: [id number] Acct: [id number] Name: DEBBY BAILON Rep #: [id number] : 1980 37 From: Megan Clark TELECOMMUNICATIONS LINESWORKER-C PCP: Will Dietz MD Status: ADM OLEG Y [place] [facility] [id number] <Megan Clark - Last Filed: 04/11/18 17:54> [...] ventral hernia repair. 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 DRY HOUSE OPERATOR history Lives: Spouse/ Significant Other Smoking Status: [...] bowels Code Visit OBSV E AND M: 66264 Initial observation care L3 04/11/18 4567 <Electronically signed by Megan GRIFFITH> Date Megan GRIFFITH 04/11/182023<Electronically signed by Sita Chung MD> Cosigner Signature: Date (if applicable) Sita Chung MD CC: NACHO Clark; Sita Chung MD; Will Dietz MD Signed EMERGENCY DEPARTMENT Observed: 04/11/2018 Status: F Source: [place] SUMMARY 5:53 PM [facility] REPOSITORY [facility] Medical Records Department [address] [place] [address] Emergency Department Summary 04/11/18 1536 MR#: [id number] Acct: [id number] Name: DEBBY BAILON Rep #: [id number] : 1980 37 From: Makenzie Wood MD [...] spina bifida This note was generated with [employer] dictation software. It may contain incorrect words, [...] problems, contact your Primary Care Provider. Call [facility] [employer] [facility] ([phone]) or report to the closest Emergency Room. Call 911 if necessary. 04/11/18 1753 <Electronically signed by Makenzie Wood MD> Date Makenzie Wood MD Cosigner Signature (If Indicated): Date CC: Will Dietz MD ABD INC DECUB Observed: 04/11/2018 Status: F Source: [place] AND/OR ERECT 3:36 PM [facility] REPOSITORY [facility] Imaging Services [address] [place] [address] Abd Inc Decub and/or Erect MR#: [id number] Acct: [id number] Name: UVALDODEBBY Colette Rep #: [id number] : 1980 F 37 From: Severino Aguilar MD PCP: Will Dietz MD Status: REG ER Study: Abd Inc Decub and/or Erect Date of Exam: 04/11/18 Exam# [id number] Ordering Dr: Makenzie Wood MD STUDY: X-RAY [...] CC: Will Dietz MD; Makenzie Wood MD Comb Winder: Signed URINALYSIS, COMPLETE Collected: 04/11/2018 Status: F Source: [place] 3:05 PM [facility] REPOSITORY Order Comment: How was Urine Obtained? INSTANT PRINT OPERATOR TO SPECIFY TYPE CODE TESTS RESULT OUT [...] Performed By: #### L400.0001 #### [facility] [address] [place], [address] CBC W/DIFF, AUTOMATED Collected: 04/11/2018 Status: F Source: [place] 1:45 PM [facility] REPOSITORY TYPE CODE TESTS RESULT OUT OF [...] Performed By: #### L100.0100 #### [facility] [address] [facility] [address] [place], [place], [address] BASIC METABOLIC Collected: 04/11/2018 Status: F Source: [place] PROFILE (BMP) 1:45 PM [facility] REPOSITORY TYPE CODE TESTS RESULT OUT OF [...] Performed By: #### L500.2500 #### [facility] [address] [facility] [place], [address] ,SERUM,HCG QUALI. Collected: Status: F Source: [place] 04/11/2018 1:45 PM [facility] REPOSITORY TYPE CODE TESTS RESULT OUT OF REFERENCE UNITS RANGE LAB L700.7000 0-9 Nonpreg Negative Normal HCGSQUAL NEGATIVE LAB L700.6700 =>Qualitative mIU/mL Normal HCG Qual < 1 triggr Performed By: #### L700.6800 #### [facility] [address] [facility] [place], [address] THYROID STIM HORMONE Collected: 04/11/2018 Status: F Source: [place] (TSH) 1:45 PM [facility] REPOSITORY Order Comment: Comments: as add on test TYPE CODE TESTS RESULT OUT OF RANGE REFERENCE UNITS LAB L501.9520 0.358-3.74 uIU/mL Normal TSH 1.00 Performed By: #### L501.9520 #### [facility] [address] [place], [address] EMERGENCY DEPARTMENT Observed: 04/09/2018 Status: F Source: [place] SUMMARY 3:38 PM [facility] REPOSITORY [facility] Medical Records Department [address] [place] [address] Emergency Department Summary 04/09/18 1529 MR#: [id number] Acct: [id number] Name: DEBBY BAILON Rep #: [id number] : 1980 37 From: Kristen Ohara MD [...] advised to follow-up with her surgeon at [facility] as well as her primary care physician. Advised return to ED if worsening complaints. Disposition: Discharge home Impression: Abdominal pain This note was generated with [employer] dictation software. It may contain incorrect words, [...] your Primary Care Provider. Call [facility] ([phone]) or report to the closest Emergency Room. Call 911 if necessary. 04/09/18 1538 <Electronically signed by Kristen Ohara MD> Date Kristen Ohara MD Cosigner Signature (If Indicated): Date CC: Will Dietz MD DISCHARGE INSTRUCTION Observed: 04/09/2018 Status: F Source: [place] 3:38 PM [facility] REPOSITORY [facility] Medical Records Department [address] [address] Discharge Instruction 04/09/181537 MR#: [id number] Acct: [id number] Name: DEBBY BAILON Rep #: [id number] : 1980 37 From: Kristen Ohara MD [...] your Primary Care Provider. Call [facility] ([phone]) or report to the closest Emergency Room. Call 911 if necessary. 04/09/181537 <Electronically signed by Kristen Ohara MD> Date Kristen Ohara MD Cosigner Signature (If Indicated): Date CC: Will Dietz MD Observed: 04/09/2018 Status: F Source: [place] STOOL OCCULT BLOOD 2:40 PM [facility] IFOB REPOSITORY STOB iFOB Occult Blood Negative Performed By: #### M100.7900 #### [facility] [address] [facility] [place], [address] URINALYSIS, COMPLETE Collected: 04/09/2018 Status: F Source: [place] 1:30 PM [facility] REPOSITORY Order Comment: Order Date: 04/09/18 How [...] Performed By: #### L400.0001 #### [facility] [address] [facility] [place], [address] ABDOMEN SINGLE VIEW Observed: 04/09/2018 Status: F Source: [place] (PORTABLE) 1:06 PM [facility] REPOSITORY [facility] Imaging Services [address] [place] [address] Abdomen Single View (Portable) MR#: [id number] Acct: [id number] Name: DEBBY BAILON Rep #: [id number] : 1980 F 37 From: Stephan Sood MD PCP: Will Dietz MD Status: REG ER Study: Abdomen Single View (Portable) Date of Exam: 04/09/18 Exam# [id number] Ordering Dr: Kristen Ohara MD STUDY: X-RAY [...] Stephan Sood MD at 14:01 EST Tel [phone], Service support , CC: Kristen Ohara MD; Will Dietz MD Comb Winder: Signed ABDOMEN/PELVIS W IV CONT Observed: 04/09/2018 Status: F Source: [place] ONLY 1:06 PM [facility] REPOSITORY [facility] Imaging Services [address] [place] [address] Abdomen/Pelvis W IV Cont ONLY MR#: [id number] Acct: [id number] Name: DEBBY BAILON Rep #: [id number] : 1980 F 37 From: Stephan Sood MD PCP: Will Dietz MD Status: REG ER Study: Abdomen/Pelvis W IV Cont ONLY Date of Exam: 04/09/18 Exam# [id number] Ordering Dr: Kristen Ohara MD STUDY: CT [...] Stephan Sood MD at 14:44 EST Tel [phone], Service support , CC: Kristen Ohara MD; Will Dietz MD Comb Winder: Signed CBC W/DIFF, AUTOMATED Collected: 04/09/2018 Status: F Source: [place] 1:00 PM [facility] REPOSITORY TYPE CODE TESTS RESULT OUT OF [...] Performed By: #### L100.0100 #### [facility] [address] [place], [address] COMPREHENSIVE METABOLIC Collected: 04/09/2018 Status: F Source: [facility] 1:00 PM [facility] REPOSITORY TYPE CODE TESTS RESULT OUT OF [...] By: #### L500.4050, L501.2450 #### [facility] [address] [facility] [address] [place], [place], [address] LIPASE Collected: 04/09/2018 Status: F Source: [place] 1:00 PM [facility] REPOSITORY TYPE CODE TESTS RESULT OUT OF RANGE REFERENCE UNITS LAB L501.2450 73-393 U/L Normal LIPASE 134 Performed By: #### L500.4050, L501.2450 #### [facility] [address] [facility] [place], [address] ,SERUM,HCG QUALI. Collected: Status: F Source: [place] 04/09/2018 1:00 PM [facility] REPOSITORY TYPE CODE TESTS RESULT OUT OF REFERENCE UNITS RANGE LAB L700.6700 =>Qualitative mIU/mL Normal HCG Qual < 1 triggr LAB L700.7000 0-9 Nonpreg Negative Normal HCGSQUAL NEGATIVE Performed By: #### L700.6800 #### [facility] [address] [place], [address] PROGRESS Observed: 04/04/2018 Status: COMPLETED Source: [place] 4:08 PM [facility] REPOSITORY HNO ID: [id number] Author: Will Dietz Service: (none) Author Type: [...] soft. Has not contacted Dr. 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 - History of kidney stones 01/04/2016 - [...] 02/12/2015 - Neurogenic bowel 01/06/2016 - Neuropathy ([facility]) 02/12/2015 post back surgery with secondary infection. Seeing Dr. Gregg - Numbness and tingling of left arm and leg 08/07/2013 - Panic attacks - Paroxysmal SVT (supraventricular tachycardia) ([facility]) 07/03/2017 Per 48 Hr event monitor 06/30/2017 - Primary insomnia 02/17/2016 - Spina bifida (HCC) 01/06/2016 - Thyroid cyst 01/01/2018 Complex right sided cysts. US 12/2017, biopsy per Dr. Josue 01/23/2018 benign. Repeat US in a year. - Type 2 diabetes mellitus with albuminuria ([facility]) 10/18/2016 - Type 2 diabetes mellitus with proteinuria ([facility]) 02/19/2016 - Ulcer of left foot ([facility]) 02/21/2017 - Ventral hernia without obstruction or [...] mouth as needed. Blood-Glucose Meter (ACCU-CHEK ANISH) [facility] Dispense 1 meter kit. 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 Has not contacted Dr. 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 - History of kidney stones 01/04/2016 - [...] 02/12/2015 - Neurogenic bowel 01/06/2016 - Neuropathy ([facility]) 02/12/2015 post back surgery with secondary infection. Seeing Dr. Gregg - Numbness and tingling of left arm and leg 08/07/2013 - Panic attacks - Paroxysmal SVT (supraventricular tachycardia) ([facility]) 07/03/2017 Per 48 Hr event monitor 06/30/2017 - Primary insomnia 02/17/2016 - Spina bifida (HCC) 01/06/2016 - Thyroid cyst 01/01/2018 Complex right sided cysts. US 12/2017, biopsy per Dr. Josue 01/23/2018 benign. Repeat US in a year. - Type 2 diabetes mellitus with albuminuria ([facility]) 10/18/2016 - Type 2 diabetes mellitus with proteinuria ([facility]) 02/19/2016 - Ulcer of left foot ([facility]) 02/21/2017 - Ventral hernia without obstruction or [...] mouth as needed. Blood-Glucose Meter (ACCU-CHEK ANISH) [facility] Dispense 1 meter kit. 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 Morbid obesity ([facility]) [E66.01] INVALID FOR* Priority: B Chronic pain [G89.29] INVALID FOR* Priority: M Neurogenic bladder [N31.9] INVALID FOR* Priority: B Hydronephrosis, right [N13.30] INVALID FOR* Priority: C History of kidney stones [Z87.442] INVALID FOR* Priority: C Spina bifida ([facility]) [Q05.9] INVALID FOR* Priority: B More... Neurogenic bowel [K59.2] INVALID FOR* Priority: B Primary insomnia [F51.01] INVALID FOR* Priority: A Type 2 diabetes mellitus with proteinuria ([facility])*INVALID FOR* Priority: A Pyelonephritis [N12] INVALID FOR* Diabetic eye exam ([facility]) [Z01.00, E11.9] INVALID FOR* Priority: A More... Migraine without aura and without status migrai*INVALID FOR*02/28/2018 Priority: A Type 2 diabetes mellitus with albuminuria ([facility])*INVALID FOR* Priority: A Well adult exam [Z00.00] [...] 04/04/18 ANDREW Observed: 03/27/2018 Status: COMPLETED Source: [place] 12:00 AM [facility] REPOSITORY Telephone (IdeaPaintO) DEBBY BAILON ([id number]) 1980 F Date Time Provider Department 03/27/18 COSME (PHARMACIST)EMELY During your visit today, we recorded the following information about you: DWAYNE RUTLEDGE 03/27/2018 4:43 PM Signed Contacted patient in [...] and lower extr*INVALID FOR*01/06/2016 Priority: D 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 Morbid obesity ([facility]) [E66.01] INVALID FOR* Priority: B Chronic pain [G89.29] INVALID FOR* Priority: M Neurogenic bladder [N31.9] INVALID FOR* Priority: B Hydronephrosis, right [N13.30] INVALID FOR* Priority: C History of kidney stones [Z87.442] INVALID FOR* Priority: C Spina bifida ([facility]) [Q05.9] INVALID FOR* Priority: B More... Neurogenic bowel [K59.2] INVALID FOR* Priority: B Primary insomnia [F51.01] INVALID FOR* Priority: A Type 2 diabetes mellitus with proteinuria ([facility])*INVALID FOR* Priority: A Pyelonephritis [N12] INVALID FOR* Diabetic eye exam ([facility]) [Z01.00, E11.9] INVALID FOR* Priority: A More... Migraine without aura and without status migrai*INVALID FOR*02/28/2018 Priority: A Type 2 diabetes mellitus with albuminuria ([facility])*INVALID FOR* Priority: A Well adult exam [Z00.00] [...] INVALID FOR* Priority: C Encounter Status:Closed by CSOME (PHARMACIST)EMELY on 03/27/18 SPINE LUMBAR W/WO Observed: 03/23/2018 Status: F Source: [place] CONTRAST 7:13 AM [facility] REPOSITORY [facility] Imaging Services [address] [place] [address] Spine Lumbar W/WO Contrast MR#: [id number] Acct: [id number] Name: DEBBY BAILON Rep #: [id number] : 1980 F 37 From: Jessie Patel MD PCP: Will Dietz MD Status: REG CLI Study: Spine Lumbar W/WO Contrast Date of Exam: 03/23/18 Exam# [id number] Ordering Dr: Celine Fung STUDY: MRI LUMBAR [...] , CC: MARIO Fung; Will Dietz MD Comb Winder: Signed EMERGENCY DEPARTMENT Observed: 03/23/2018 Status: F Source: [place] SUMMARY 12:36 AM [facility] REPOSITORY [facility] Medical Records Department [address] [place] [address] Emergency Department Summary 03/22/18 2340 MR#: [id number] Acct: [id number] Name: DEBBY BAILON Rep #: [id number] : 1980 37 From: Kristen Ohara MD [...] knee sprain This note was generated with [employer] dictation software. It may contain incorrect words, [...] your Primary Care Provider. Call [facility] ([phone]) or report to the closest Emergency Room. Call 911 if necessary. 03/23/18 0036 <Electronically signed by Kristen Ohara MD> Date Kristen Ohara MD Cosigner Signature (If Indicated): Date CC: Will Dietz MD DISCHARGE INSTRUCTION Observed: 03/22/2018 Status: F Source: [place] 11:40 PM [facility] REPOSITORY [facility] Medical Records Department [address] [place] [address] Discharge Instruction 03/22/18 2339 MR#: [id number] Acct: [id number] Name: UVALDODEBBY L Rep #: [id number] : 1980 37 From: Kristen Ohara MD [...] problems, contact your Primary Care Provider. Call [facility] [employer] [facility] ([phone]) or report to the closest Emergency Room. Call 911 if necessary. 03/22/18 2340 <Electronically signed by Kristen Ohara MD> Date Kristen Ohara MD Cosigner Signature (If Indicated): Date CC: Will Dietz MD KNEE 4 OR MORE Observed: 03/22/2018 Status: F Source: [place] VIEWS 11:01 PM [facility] REPOSITORY [facility] Imaging Services [address] [place] [address] Knee 4 or More Views MR#: [id number] Acct: [id number] Name: DEBBY BAILON Rep #: [id number] : 1980 F 37 From: Jessie Patel MD PCP: Will Dietz MD Status: REG ER Study: Knee 4 or More Views Date of Exam: 03/22/18 Exam# [id number] Ordering Dr: Kristen Ohara MD STUDY: X-RAY [...] CC: Kristen Ohara MD; Will Dietz MD Comb Winder: Signed 12 LEAD ELECTROCARDIOGRAM Observed: 03/21/2018 Status: F Source: [place] 1:31 PM [facility] REPOSITORY [facility] Cardiovascular Services [address] [place] [address] 12 Lead EKG 03/19/18 2304 MR#: [id number] Acct: [id number] Name: DEBBY BAILON Rep #: [id number] : 1980 37 From: Jayson Alvarez MD Attending Dr: Status: DEP ER Ordering Dr: Kristen Ohara MD Date: [...] Normal ECG Confirmed by STEFANI FITZGERALD, JAYSON ([id number]), editor & co founder LYLA HAY ([id number]) on 03/21/2018 1:31:31 PM Referred By: ISAURA Confirmed By:JAYSON ALVAREZ MD 03/21/18 1331 Date Jayson Alvarez MD CC: Kristen Ohara MD; Will Dietz MD Signed EMERGENCY DEPARTMENT Observed: 03/20/2018 Status: F Source: [place] SUMMARY 4:46 AM [facility] REPOSITORY [facility] Medical Records Department [address] [place] [address] Emergency Department Summary 03/19/18 2258 MR#: [id number] Acct: [id number] Name: DEBBY BAILON Rep #: [id number] : 1980 37 From: Kristen Ohara MD [...] chest pain This note was generated with [employer] dictation software. It may contain incorrect words, [...] your Primary Care Provider. Call [facility] ([phone]) or report to the closest Emergency Room. Call 911 if necessary. 03/20/18 0446 <Electronically signed by Kristen Ohara MD> Date Kristen Ohara MD Cosigner Signature (If Indicated): Date CC: Will Dietz MD DISCHARGE INSTRUCTION Observed: 03/20/2018 Status: F Source: [place] 1:59 AM [facility] REPOSITORY [facility] Medical Records Department [address] [address] Discharge Instruction 03/20/18 0158 MR#: [id number] Acct: [id number] Name: DEBBY BAILON Rep #: [id number] : 1980 37 From: Kristen Ohara MD [...] problems, contact your Primary Care Provider. Call [facility] [employer] [facility] ([phone]) or report to the closest Emergency Room. Call 911 if necessary. 03/20/18 015 <Electronically signed by Kristen Ohara MD> Date Kristen Ohara MD Cosigner Signature (If Indicated): Date CC: Will Dietz MD DISCHARGE INSTRUCTION Observed: 03/20/2018 Status: F Source: [place] 1:56 AM [facility] REPOSITORY [facility] Medical Records Department [address] [place] [address] Discharge Instruction 03/20/185 MR#: [id number] Acct: [id number] Name: CHON BAILONOdalys Alvarenga Rep #: [id number] : 1980 37 From: Kristen Ohara MD [...] your Primary Care Provider. Call [facility] ([phone]) or report to the closest Emergency Room. Call 911 if necessary. 03/20/18 0156 <Electronically signed by Kristen Ohara MD> Date Kristen Ohara MD Cosigner Signature (If Indicated): Date CC: Will Dietz MD CTA CHEST W/WO Observed: 03/20/2018 Status: F Source: [place] CONTRAST 12:16 AM [facility] REPOSITORY [facility] Imaging Services [address] [place] [address] CTA Chest W/WO Contrast MR#: [id number] Acct: [id number] Name: DEBBY BAILON Rep #: [id number] : 1980 F 37 From: Dylan Quintana MD PCP: Will Dietz MD Status: REG ER Study: CTA Chest W/WO Contrast Date of Exam: 03/20/18 Exam# [id number] Ordering Dr: Kristen Ohara MD STUDY: CTA [...] CC: Kristen Ohara MD; Will Dietz MD Comb Winder: Signed CBC W/DIFF, AUTOMATED Collected: 03/19/2018 Status: F Source: [place] 11:20 PM [facility] REPOSITORY TYPE CODE TESTS RESULT OUT OF [...] Performed By: #### L100.0100 #### [facility] [address] [facility] [place], [place], [address] BASIC METABOLIC Collected: 03/19/2018 Status: F Source: [place] PROFILE (BMP) 11:20 PM [facility] REPOSITORY TYPE CODE TESTS RESULT OUT OF [...] By: #### L500.2500, L501.4010 #### [facility] [address] [facility] [place], [place], [address] TROPONIN-I Collected: 03/19/2018 Status: F Source: [place] 11:20 PM [facility] REPOSITORY TYPE CODE TESTS RESULT OUT OF [...] By: #### L500.2500, L501.4010 #### [facility] [address] [facility] [place], [place], [address] D-DIMER QUANTITATIVE Collected: 03/19/2018 Status: F Source: [place] (DVT/PE) 11:20 PM [facility] REPOSITORY TYPE CODE TESTS RESULT OUT OF RANGE REFERENCE UNITS LAB L300.8000 0.27-0.49 FEU/ug/m High alert D-DIMER 0.55 QUANT Result Comment: CRITICAL VALUE VERIFIED. CALLED TO 03/19/18 2344 Molly Jose. RESULTS READ BACK BY SAME . D-Dimer ELEVATED (>0.49): Additional studies and clinical assessments are indicated to conclude diagnosis of: Deep Vein Thrombosis (DVT) or Pulmonary Embolism (PE) Performed By: #### L300.8000 #### [facility] [address] [place], [address] ,SERUM,HCG QUALI. Collected: Status: F Source: [place] 03/19/2018 11:20 PM [facility] REPOSITORY TYPE CODE TESTS RESULT OUT OF REFERENCE UNITS RANGE LAB L700.6700 =>Qualitative mIU/mL Normal HCG Qual < 1 triggr LAB L700.7000 0-9 Nonpreg Negative Normal HCGSQUAL NEGATIVE Performed By: #### L700.6800 #### [facility] [address] [place], [address] URINALYSIS, COMPLETE Collected: 03/19/2018 Status: F Source: [place] 10:55 PM [facility] REPOSITORY Order Comment: How was Urine Obtained? [...] Performed By: #### L400.0001 #### [facility] [address] [place], [address] CHEST 1 VIEW Observed: 03/19/2018 Status: F Source: [place] (PORTABLE) 10:52 PM [facility] REPOSITORY [facility] Imaging Services [address] [place] [address] Chest 1 View (Portable) MR#: [id number] Acct: [id number] Name: DEBBY BAILON Rep #: [id number] : 1980 F 37 From: Jessie Patel MD PCP: Will Dietz MD Status: REG ER Study: Chest 1 View (Portable) Date of Exam: 03/19/18 Exam# [id number] Ordering Dr: Kristen Ohara MD STUDY: X-RAY [...] CC: Kristen Ohara MD; Will Dietz MD Comb Winder: Signed ABDOMEN/PELVIS WITHOUT Observed: 03/19/2018 Status: F Source: [place] CONT 10:52 PM [facility] REPOSITORY [facility] Imaging Services [address] [place] [address] Abdomen/Pelvis without Cont MR#: [id number] Acct: [id number] Name: DEBBY BAILON Rep #: [id number] : 1980 F 37 From: Dylan Quintana MD PCP: Will Dietz MD Status: REG ER Study: Abdomen/Pelvis without Cont Date of Exam: 03/19/18 Exam# [id number] Ordering Dr: Kristen Ohara MD STUDY: CT [...] CC: Kristen Ohara MD; Will Dietz MD Comb Winder: Signed NM CARDIAC PERF Observed: 03/15/2018 Status: F Source: [place] STRESS/PHARM 11:38 AM [facility] REPOSITORY * * *Final Report* * [...] 60 minutes later. See administered doses below. [facility] Date of service: 03/15/2018 7:22:30 AM Ordering [...] cavity size is unchanged with stress. Final Comb Winder: RADHA Transcribe Date/Time: Mar 15 2018 7:22A Dictated by : JOESPH CALLOWAY MD This examination was interpreted and the report reviewed and electronically signed by: JOESPH CALLOWAY MD on Mar 15 2018 12:37PM EST [id number] PROGRESS Observed: 03/15/2018 Status: COMPLETED Source: [place] 10:22 AM [facility] REPOSITORY HNO ID: [id number] Author: Renata Lubin Service: (none) Author Type: [...] STATUS: Discontinued PROCEDURE TYPE: NM Stress: 16mCi Ne20j-Qgnfkdz was administered IV for Rest Imaging at 08:15 by sima Rolon. 44.1 mCi Tc99m- Myoview was administered IV for Stress Imaging at 09:50 by sima Rolon. ADMINISTRATION TIME: PATIENT DISCHARGED TO: Ambulatory patient, left [place] department area. A Diagnostic radioactive procedure has taken place, with no further precautions necessary other than routine body substance precautions. More information regarding radiation safety can be found using this link: [email or web address] SIGNATURE: Renata Lubin PATIENT NAME: Debby Bailon DATE: March 15, 2018 TIME: 10:23 AM PAGER/CONTACT #: PROGRESS Observed: 03/15/2018 Status: COMPLETED Source: [place] 9:58 AM [facility] REPOSITORY HNO ID: [id number] Author: Isis Alaniz (Rcep) Service: (none) Author Type: Sinter Machine Operator Type: Progress Notes Filed: 03/15/2018 9:59 AM Note Text: Preliminary report complete; results under imaging tab. DAGO Wallace CNOV Observed: 03/15/2018 Status: COMPLETED Source: [place] 9:00 AM [facility] REPOSITORY Office Visit (CAWSTR) DEBBY BAILON ([id number]) 1980 F Date Time Provider Department 03/15/18 9:00 AM RAMANA ALANIZ) CAWSTR During your visit today, we recorded the following information about you: DAGO Wallace 03/15/2018 9:59 AM Signed Preliminary report complete; results under imaging tab. 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 Morbid obesity ([facility]) [E66.01] INVALID FOR* Priority: B Chronic pain [G89.29] INVALID FOR* Priority: M Neurogenic bladder [N31.9] INVALID FOR* Priority: B Hydronephrosis, right [N13.30] INVALID FOR* Priority: C History of kidney stones [Z87.442] INVALID FOR* Priority: C Spina bifida ([facility]) [Q05.9] INVALID FOR* Priority: B More... Neurogenic bowel [K59.2] INVALID FOR* Priority: B Primary insomnia [F51.01] INVALID FOR* Priority: A Type 2 diabetes mellitus with proteinuria ([facility])*INVALID FOR* Priority: A Pyelonephritis [N12] INVALID FOR* Diabetic eye exam ([facility]) [Z01.00, E11.9] INVALID FOR* Priority: A More... Migraine without aura and without status migrai*INVALID FOR*02/28/2018 Priority: A Type 2 diabetes mellitus with albuminuria ([facility])*INVALID FOR* Priority: A Well adult exam [Z00.00] [...] 03/15/18 CNNURSE Observed: 03/15/2018 Status: COMPLETED Source: [place] 9:00 AM [facility] REPOSITORY Nurse Visit (CAWSTR) DEBBY BAILON ([id number]) 1980 F Date Time Provider Department 03/15/18 9:00 AM [facility] During your visit today, we recorded the following information about you: Marycruz Leroy RN 03/15/2018 11:00 AM Signed lexiscan 0.4mg/5ml given over 10 second IV push. Lot number [id number], exp date 03-07-2021. Patient tolerated injection well. Marycruz Leroy RN Referring Provider: WILL DIETZ [[id number]] Allergies As of Date: 03/15/2018 Noted Allergy Reaction MUSHROOM 06/10/2016 10 - Anaphylaxis PEANUTS 06/10/2016 10 - Anaphylaxis MRI CONTRAST (GADOLINIUM-CONTAINI*01/03/2017 8 - GI Upset Date Reviewed: 03/07/2018 Reviewed by: Myles Higgins - Fully Assessed Primary Visit Diagnosis:Mixed hyperlipidemia [E78.2] Other Visit Diagnosis:Paroxysmal SVT (supraventricular tachycardia) (HCC) [I47.1] Prescriptions as of 03/15/2018 Sig: PREGABALIN [...] EMERGENCY DEPARTMENT Observed: 03/14/2018 Status: F Source: [place] SUMMARY 11:19 PM [facility] REPOSITORY [facility] Medical Records Department [address] [place] [address] Emergency Department Summary 03/14/18 1518 MR#: [id number] Acct: [id number] Name: DEBBY BAILON Rep #: [id number] : 1980 37 From: Oni Dunlap MD PCP: Will Dietz MD Status: DEP ER - ER Visit Summary Date of Service: 03/14/18 Chief Complaint: Dysuria History of Present Illness: The patient is a [address] Dietz and her urologist is Dr. Sears in [place]. She has a history of spina bifida [...] Course and Treatment: This is the patient's th visit to this emergency department this year. [...] condition. Impression: 1. UTI. 2. Hyperglycemia with vfh-nfdwkzi-vdrqlztwt diabetes mellitus. 3. Spina bifida with neurogenic bladder. This note was generated with [employer] Limitedation software. It may contain incorrect words, spelling, [...] your Primary Care Provider. Call [facility] ([phone]) or report to the closest Emergency Room. Call 911 if necessary. 03/14/18 2319 <Electronically signed by Oni Dunlap MD> Date Oni Dunlap MD Cosigner Signature (If Indicated): Date CC: Will Dietz MD CBC W/DIFF, AUTOMATED Collected: 03/14/2018 Status: F Source: [place] 3:30 PM [facility] REPOSITORY TYPE CODE TESTS RESULT OUT OF [...] Performed By: #### L100.0100 #### [facility] [address] [place], [place], [address] BASIC METABOLIC Collected: 03/14/2018 Status: F Source: [place] PROFILE (BMP) 3:30 PM [facility] REPOSITORY TYPE CODE TESTS RESULT OUT OF [...] Performed By: #### L500.2500 #### [facility] [address] [facility] [place], [place], [id number] ,SERUM,HCG QUALI. Collected: Status: F Source: [place] 03/14/2018 3:30 PM [facility] REPOSITORY TYPE CODE TESTS RESULT OUT OF REFERENCE UNITS RANGE LAB L700.7000 0-9 Nonpreg Negative Normal HCGSQUAL NEGATIVE LAB L700.6700 =>Qualitative mIU/mL Normal HCG Qual < 1 triggr Performed By: #### L700.6800 #### [facility] [address] [place], [place], [address] URINALYSIS, COMPLETE Collected: 03/14/2018 Status: F Source: [place] 3:25 PM [facility] REPOSITORY Order Comment: Order Date: 03/14/18 How [...] Performed By: #### L400.0001 #### [facility] [address] [facility] [place], [place], [address] Observed: 03/14/2018 Status: F Source: [place] CULTURE, URINE 3:25 PM [facility] REPOSITORY Order Date: 03/14/18 Urine Culture ORGANISM 1: Mixed Gram Pos AND Gram Neg Org [place] Count 25,000-50,000 MIX CULTURE Mixed contaminants. Submit a new specimen if indicated. Performed By: #### M100.0650 #### [facility] [address] [facility] [address] [place], [place], [address] CNOV Observed: 03/07/2018 Status: COMPLETED Source: [place] 2:20 PM [facility] REPOSITORY Office Visit (FAMPWS) DEBBY BAILON ([id number]) 1980 F Date Time Provider Department 03/07/18 [...] 12/05/2017 - Dysthymic disorder Depression (non-psychotic), sees TELECOMMUNICATIONS LINESWORKER at [facility]. - History of kidney stones 01/04/2016 - [...] 02/12/2015 - Neurogenic bowel 01/06/2016 - Neuropathy ([facility]) 02/12/2015 post back surgery with secondary infection. Seeing Dr. Gregg - Numbness and tingling of left arm and leg 08/07/2013 - Panic attacks - Paroxysmal SVT (supraventricular tachycardia) ([facility]) 07/03/2017 Per 48 Hr event monitor 06/30/2017 - Primary insomnia 02/17/2016 - Spina bifida ([facility]) 01/06/2016 - Thyroid cyst 01/01/2018 Complex right sided cysts. US 12/2017, biopsy per Dr. Josue 01/23/2018 benign. Repeat US in a year. - Type 2 diabetes mellitus with albuminuria ([facility]) 10/18/2016 - Type 2 diabetes mellitus with proteinuria ([facility]) 02/19/2016 - Ulcer of left foot ([facility]) 02/21/2017 - Ventral hernia without obstruction or [...] mouth as needed. Blood-Glucose Meter (ACCU-CHEK ANISH) [facility] Dispense 1 meter kit. 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 Morbid obesity ([facility]) [E66.01] INVALID FOR* Priority: B Chronic pain [G89.29] INVALID FOR* Priority: M Neurogenic bladder [N31.9] INVALID FOR* Priority: B Hydronephrosis, right [N13.30] INVALID FOR* Priority: C History of kidney stones [Z87.442] INVALID FOR* Priority: C Spina bifida ([facility]) [Q05.9] INVALID FOR* Priority: B More... Neurogenic bowel [K59.2] INVALID FOR* Priority: B Primary insomnia [F51.01] INVALID FOR* Priority: A Type 2 diabetes mellitus with proteinuria ([facility])*INVALID FOR* Priority: A Pyelonephritis [N12] INVALID FOR* Diabetic eye exam ([facility]) [Z01.00, E11.9] INVALID FOR* Priority: A More... Migraine without aura and without status migrai*INVALID FOR*02/28/2018 Priority: A Type 2 diabetes mellitus with albuminuria ([facility])*INVALID FOR* Priority: A Well adult exam [Z00.00] [...] 03/07/18 PROGRESS Observed: 03/07/2018 Status: COMPLETED Source: [place] 2:08 PM [facility] REPOSITORY HNO ID: [id number] Author: Myles Higgins Service: (none) Author Type: Physician Document Design Specialist Type: Progress Notes Filed: 03/07/2018 3:03 PM [...] 12/05/2017 - Dysthymic disorder Depression (non-psychotic), sees TELECOMMUNICATIONS LINESWORKER at [facility]. - History of kidney stones 01/04/2016 - [...] Panic attacks - Paroxysmal SVT (supraventricular tachycardia) ([facility]) 07/03/2017 Per 48 Hr event monitor 06/30/2017 - Primary insomnia 02/17/2016 - Spina bifida (HCC) 01/06/2016 - Thyroid cyst 01/01/2018 Complex right sided cysts. US 12/2017, biopsy per Dr. Josue 01/23/2018 benign. Repeat US in a year. - Type 2 diabetes mellitus with albuminuria ([facility]) 10/18/2016 - 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) 02/19/2016 - Ulcer of left foot ([facility]) 02/21/2017 - Ventral hernia without obstruction or [...] mouth as needed. Blood-Glucose Meter (ACCU-CHEK ANISH) [facility] Dispense 1 meter kit. 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 He will molded goods spot picker a new four-point walker. Discussed using Tylenol for concussion treatment. Concussion precautions discussed. She does have a follow-up with her neurologist on the . She will keep that appointment. She declined any medications in the ED. Treatment Plan: [] Disposition: Discharge Impression: 1. Concussion without loss of consciousness 2. Multiple falls 3. History of spinal bifida This note was generated with [employer] dictation software. It may contain incorrect words, [...] problems, contact your Primary Care Provider. Call [facility] ([phone]) or report to the closest Emergency Room. Call 911 if necessary. 03/07/18 0153 <Electronically signed by Arnold Le DO> Date Arnold Brice Cosigner Signature (If Indicated): Date CC: Will Dietz MD BRAIN/HEAD WITHOUT Observed: 03/07/2018 Status: F Source: [place] CONTRAST 12:36 AM [facility] REPOSITORY [facility] Imaging Services [address] [place] [address] Brain/Head without Contrast MR#: [id number] Acct: [id number] Name: DEBBY BAILON Rep #: [id number] : 1980 F 37 From: Dylan Quintana MD PCP: Will Dietz MD Status: REG ER Study: Brain/Head without Contrast Date of Exam: 03/07/18 Exam# [id number] Ordering Dr: Arnold Caban DO STUDY: CT [...] , CC: Will Dietz MD; Arnold Caban Comb Winder: Signed SPINE CERVICAL Observed: 03/07/2018 Status: F Source: [place] WITHOUT CONTRAS 12:36 AM [facility] REPOSITORY [facility] Imaging Services [address] [place] [address] Spine Cervical without Contras MR#: [id number] Acct: [id number] Name: DEBBY BAILON Rep #: [id number] : 1980 F 37 From: Dylan Quintana MD PCP: Will Dietz MD Status: REG ER Study: Spine Cervical without Contras Date of Exam: 03/07/18 Exam# [id number] Ordering Dr: Arnold Caban DO STUDY: CT [...] EDT Tel , Service support , CC: Wlil Dietz MD; Arnold Caban Comb Winder: Signed EMERGENCY DEPARTMENT Observed: 03/03/2018 Status: F Source: [place] SUMMARY 9:07 PM [facility] REPOSITORY [facility] Medical Records Department [address] [place] [address] Emergency Department Summary 03/03/18 2101 MR#: [id number] Acct: [id number] Name: DEBBY BAILON Rep #: [id number] : 1980 37 From: Dre Deal MD [...] 2 diabetes This note was generated with [employer] dictation software. It may contain incorrect words, spelling, and punctuation that were not noted in review of the chart prior to signing ED Disposition - Plan for ED Patient: Disposition: Home or Assisted Living Chief Complaint: Numb/Ting Instructions: ED Contusion Back Prescriptions: Hydrocodone Bitart/Apap 5-325 [[place] 5MG-325MG] 1 tablet PO Q6H PRN PRN 3 Days #10 tablet PRN Reason: Pain Referrals: Will Dietz MD [Primary Care Provider] - Additional Instructions: Your prescription was electronically transmitted to [facility] your preferred pharmacy. What to do if you have Problems For any increased pain, shortness of breath, bleeding, nausea or vomiting, chest pain, or any unexpected problems, contact your Primary Care Provider. Call [facility] ([phone]) or report to the closest Emergency Room. Call 911 if necessary. 03/03/18 6627 <Electronically signed by Dre Deal MD> Date Dre Deal MD Cosigner Signature (If Indicated): Date CC: Will Dietz MD URINALYSIS, COMPLETE Collected: 03/03/2018 Status: F Source: [place] 6:50 PM [facility] REPOSITORY Order Comment: How was Urine Obtained? INSTANT PRINT OPERATOR TO SPECIFY TYPE CODE TESTS RESULT OUT [...] Performed By: #### L400.0001 #### [facility] [address] [facility] [address] [place], [place], [address] LUMBAR SPINE 2 OR 3 Observed: 03/03/2018 Status: F Source: [place] VIEWS 5:40 PM [facility] REPOSITORY [facility] Imaging Services [address] [place] [address] Lumbar Spine 2 or 3 Views MR#: [id number] Acct: [id number] Name: DEBBY BAILON Rep #: [id number] : 1980 F 37 From: Malcolm Jaimes MD PCP: Will Dietz MD Status: REG ER Study: Lumbar Spine 2 or 3 Views Date of Exam: 03/03/18 Exam# [id number] Ordering Dr: Dre Deal MD STUDY: X-RAY [...] CC: Will Dietz MD; Dre Deal MD Comb Winder: Signed ECG COMPLETE W Observed: 02/28/2018 Status: F Source: [place] INTERPRETATION 8:03 PM [facility] RE[facility] NAME : DEBBY BAILON PID : [id number] : 1980 Gender : Female Race : ORD : [id number] Procedure Date : Feb 28 2018 20:03:55 Edit Date : Mar 02 2018 15:30:39 Diagnosis:NORMAL SINUS RHYTHM NORMAL ECG Confirmed by CELINE JUAREZ D.O. ([id number]) on 03/02/2018 3:30:30 PM Ventricular Rate : 76 BPM Atrial Rate : 76 BPM P-R Interval : 140 ms QRS Duration : 76 ms Q-T Interval : 400 ms QTC Calculation(Bezet) : 450 ms P [place] : 11 degrees R [place] : 22 degrees T [place] : 19 degrees Test Reason : Location : 185 : [facility] Overread By : CELINE JUAREZ D.O. Edited By : CELINE JUAREZ D.O. Referred By : WILL DIETZ Acquired by : EM, PROGRESS Observed: 02/28/2018 Status: COMPLETED Source: [place] 7:19 PM [facility] REPOSITORY HNO ID: [id number] Author: Will Dietz Service: (none) Author Type: [...] DM (diabetes mellitus), secondary, uncontrolled, w/renal complications ([facility]) 12/05/2017 - Dysthymic disorder Depression (non-psychotic), sees TELECOMMUNICATIONS LINESWORKER at [facility]. - History of kidney stones 01/04/2016 - [...] 02/12/2015 - Neurogenic bowel 01/06/2016 - Neuropathy ([facility]) 02/12/2015 post back surgery with secondary infection. Seeing Dr. 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 - History of kidney stones 01/04/2016 - [...] 02/12/2015 - Neurogenic bowel 01/06/2016 - Neuropathy ([facility]) 02/12/2015 post back surgery with secondary infection. Seeing Dr. Gregg - Numbness and tingling of left arm and leg 08/07/2013 - Panic attacks - Paroxysmal SVT (supraventricular tachycardia) ([facility]) 07/03/2017 Per 48 Hr event monitor 06/30/2017 - Primary insomnia 02/17/2016 - Spina bifida (HCC) 01/06/2016 - Thyroid cyst 01/01/2018 Complex right sided cysts. US 12/2017, biopsy per Dr. Josue 01/23/2018 benign. Repeat US in a year. - Type 2 diabetes mellitus with albuminuria ([facility]) 10/18/2016 - 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) 02/19/2016 - Ulcer of left foot ([facility]) 02/21/2017 - Ventral hernia without obstruction or [...] to 7 days. Blood-Glucose Meter (ACCU-CHEK ANISH) [facility] Dispense 1 meter kit. Dx: Other DM [...] Negative Negative Ketones, Urine Negative Negative Specific [place], Ur 1.005 - 1.030 1.009 Hemoglobin/Blood,Ur Negative [...] with me in 4 months routine MD ZE SinhaOV Observed: 02/28/2018 Status: COMPLETED Source: [place] 5:40 PM [facility] REPOSITORY Office Visit (FAMPWS) DEBBY BAILON ([id number]) 1980 F Date Time Provider Department 02/28/18 5:40 PM WILL DIETZCHAZ During your visit today, we recorded the [...] 12/05/2017 - Dysthymic disorder Depression (non-psychotic), sees TELECOMMUNICATIONS LINESWORKER at [facility]. - History of kidney stones 01/04/2016 - [...] 02/12/2015 - Neurogenic bowel 01/06/2016 - Neuropathy ([facility]) 02/12/2015 post back surgery with secondary infection. Seeing Dr. 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 - History of kidney stones 01/04/2016 - [...] 02/12/2015 - Neurogenic bowel 01/06/2016 - Neuropathy ([facility]) 02/12/2015 post back surgery with secondary infection. Seeing Dr. Gregg - Numbness and tingling of left arm and leg 08/07/2013 - Panic attacks - Paroxysmal SVT (supraventricular tachycardia) ([facility]) 07/03/2017 Per 48 Hr event monitor 06/30/2017 [...] to 7 days. Blood-Glucose Meter (ACCU-CHEK ANISH) [facility] Dispense 1 meter kit. 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 CODEI: No GLIMEPIRIDE 4 MG TABLET 30 tablet [...] to next visit. Referring Provider: WILL DIETZ [[id number]] Allergies As of Date: 02/28/2018 Noted Allergy [...] TO AMBULATORY CLINIC PHARMACY [[id number]] Order #: [id number]: 1 NM CARDIAC PERF STRESS/PHARM [6724135] Order #: [id number] IV START - SPECIFY [2185549] Order #: [id number]: 1 IV DISCONTINUE [[id number]] Order #: [id number]: 1 regadenoson (LEXISCAN) 0.4 mg/5 mL syrgInject 5 mL intravenously one time only for 1 dose. Give IV push over 10 seconds and follow with 5 ml of normal salineDisp: 5 mLRfl: 0 UA DIP B/O [[id number]] Order #: [id number] COMP METABOLIC PANEL [SQCMP] Order #: [id number] FUTURE HGB A1C [SPDVD6I] Order #: [id number] FUTURE ALBUMIN/CREAT RATIO RND UR [SQUACR] Order #: [id number] FUTURE LIPID PANEL, NONFASTING [SQLIPNF] Order #: [id number] FUTURE ECG COMPLETE W INTERPRETATION [ECG01] Order #: [id number] FUTURE Prescriptions as of 02/28/2018 Sig: ATORVASTATIN [...] EMERGENCY DEPARTMENT Observed: 02/26/2018 Status: F Source: [place] SUMMARY 2:47 AM [facility] REPOSITORY [facility] Medical Records Department [address] [place] [address] Emergency Department Summary 02/25/18 2249 MR#: [id number] Acct: [id number] Name: DEBBY BAILON Rep #: [id number] : 1980 37 From: Nemesio Sanderson DO [...] Somatoform disorder This note was generated with [employer] dictation software. It may contain incorrect words, [...] your Primary Care Provider. Call [facility] ([phone]) or report to the closest Emergency Room. Call 911 if necessary. 02/26/18 0247 <Electronically signed by Nemesio Sanderson DO> Date Nemesio Sanderson DO Cosigner Signature (If Indicated): Date CC: Will Dietz MD BASIC METABOLIC Collected: 02/25/2018 Status: F Source: [place] PROFILE ([facility]) 10:40 PM [facility] REPOSITORY TYPE CODE TESTS RESULT OUT OF [...] Performed By: #### L500.2500 #### [facility] [address] [facility] [place], [address] 12 LEAD ELECTROCARDIOGRAM Observed: 02/21/2018 Status: F Source: [place] 8:36 AM [facility] REPOSITORY [facility] Cardiovascular Services [address] [place] [address] 12 Lead EKG 02/16/18 0940 MR#: [id number] Acct: [id number] Name: DEBBY BAILON Rep #: [id number] : 1980 37 From: Rojas aOtes MD Attending Dr: Status: DEP Ordering Dr: Patrice Shaw MD Date: 02/16/18 [...] ECG Confirmed by ROJAS OATES MD ([id number]), editor & co founder LYLA HAY ([id number]) on 02/21/2018 8:35:57 AM Referred By: Celine Fung Confirmed By:ROJAS OATES MD 02/21/18 0835 Date Rojas Oates MD CC: Josue Shaw MD; Will Dietz MD Signed EMERGENCY DEPARTMENT Observed: 02/16/2018 Status: F Source: [place] SUMMARY 12:13 PM [facility] REPOSITORY [facility] Medical Records Department [address] [place] [address] Emergency Department Summary 02/16/18 1209 MR#: [id number] Acct: [id number] Name: DEBBY BAILON Rep #: [id number] : 1980 37 From: Patrice Shaw MD [...] to medication This note was generated with [employer] dictation software. It may contain incorrect words, [...] your Primary Care Provider. Call [facility] ([phone]) or report to the closest Emergency Room. Call 911 if necessary. 02/16/18 1213 <Electronically signed by Patrice Shaw MD> Date Patrice Shaw MD Cosigner Signature (If Indicated): Date CC: Will Dietz MD CHEST PA AND LATERAL Observed: 02/16/2018 Status: F Source: [place] 9:57 AM [facility] REPOSITORY [facility] Imaging Services [address] [place] [address] Chest PA and Lateral MR#: [id number] Acct: [id number] Name: DEBBY BAILON Rep #: [id number] : 1980 F 37 From: Stephan Sood MD PCP: Will Dietz MD Status: REG ER Study: Chest PA and Lateral Date of Exam: 02/16/18 Exam# [id number] Ordering Dr: Patrice Shaw MD STUDY: X-RAY [...] Stephan Sood MD at 11:40 EDT Tel [phone], Service support , CC: Josue Shaw MD; Will Dietz MD Comb Winder: Signed CBC W/DIFF, AUTOMATED Collected: 02/16/2018 Status: F Source: [place] 9:45 AM [facility] REPOSITORY TYPE CODE TESTS RESULT OUT OF [...] Performed By: #### L100.0100 #### [facility] [address] [place], [address] BASIC METABOLIC Collected: 02/16/2018 Status: F Source: [place] PROFILE ([facility]) 9:45 AM [facility] REPOSITORY TYPE CODE TESTS RESULT OUT OF [...] Performed By: #### L500.2500 #### [facility] [address] [place], [address] ,SERUM,HCG QUALI. Collected: Status: F Source: [place] 02/16/2018 9:45 AM [facility] REPOSITORY TYPE CODE TESTS RESULT OUT OF REFERENCE UNITS RANGE LAB L700.6700 =>Qualitative mIU/mL Normal HCG Qual < 1 triggr LAB L700.7000 0-9 Nonpreg Negative Normal HCGSQUAL NEGATIVE Performed By: #### L700.6800 #### [facility] [address] [facility] [place], [address] DISCHARGE INSTRUCTION Observed: 02/14/2018 Status: F Source: [place] 4:38 PM [facility] REPOSITORY [facility] Medical Records Department [address] [place] [address] Discharge Instruction 02/14/18 1637 MR#: [id number] Acct: [id number] Name: DEBBY BAILON Rep #: [id number] : 1980 37 From: Irvin Goldberg DO [...] problems, contact your Primary Care Provider. Call [facility] [employer] [facility] ([phone]) or report to the closest Emergency Room. Call 911 if necessary. 02/14/18 1638 <Electronically signed by Irvin Goldberg DO> Date Irvin Goldberg DO Cosigner Signature (If Indicated): Date CC: Will Dietz MD EMERGENCY DEPARTMENT Observed: 02/14/2018 Status: F Source: [place] SUMMARY 4:37 PM [facility] REPOSITORY [facility] Medical Records Department [address] [place] [address] Emergency Department Summary 02/14/18 1632 MR#: [id number] Acct: [id number] Name: DEBBY BAILON Rep #: [id number] : 1980 37 From: Irvin Goldberg DO [...] rebound or rigidity, no peritoneal signs. Neuro mzjx-ciuuku-jxxg and heel mcdonald testing within normal limits, [...] [Headache-suspect migraine] This note was generated with [employer] dictation software. It may contain incorrect words, [...] your Primary Care Provider. Call [facility] ([phone]) or report to the closest Emergency Room. Call 911 if necessary. 02/14/18 4198 <Electronically signed by Irvin Goldberg DO> Date Irvin Goldberg DO Cosigner Signature (If Indicated): Date CC: Will Dietz MD BRAIN/HEAD WITHOUT Observed: 02/14/2018 Status: F Source: [place] CONTRAST 3:19 PM [facility] REPOSITORY [facility] Imaging Services [address] [place] [address] Brain/Head without Contrast MR#: [id number] Acct: [id number] Name: DEBBY BAILON Rep #: [id number] : 1980 F 37 From: José Luis Birmingham DO PCP: Will Dietz MD Status: REG ER Study: Brain/Head without Contrast Date of Exam: 02/14/18 Exam# [id number] Ordering Dr: Irvin Goldberg DO STUDY: CT [...] Luis Birmingham DO at 16:26 EDT Tel [phone], Service support , CC: Will Dietz MD; Irvin Goldberg DO Comb Winder: Signed URINALYSIS, COMPLETE Collected: 02/14/2018 Status: F Source: [place] 1:20 PM [facility] REPOSITORY Order Comment: Has pt arrived? Y [...] Performed By: #### L400.0001 #### [facility] [address] [facility] [address] [place], [place], [address] ,SERUM,HCG QUALI. Collected: Status: F Source: [place] 02/14/2018 1:20 PM [facility] REPOSITORY TYPE CODE TESTS RESULT OUT OF REFERENCE UNITS RANGE LAB L700.7000 0-9 Nonpreg Negative Normal HCGSQUAL NEGATIVE LAB L700.6700 =>Qualitative mIU/mL Normal HCG Qual < 1 triggr Performed By: #### L700.6800 #### [facility] [address] [facility] [address] [place], [place], [address] URINALYSIS WITH Collected: 02/13/2018 Status: F Source: [facility] 9:58 AM [facility] REPOSITORY TYPE CODE TESTS RESULT OUT OF RANGE REFERENCE UNITS LAB UCOL Yellow Color Yellow LAB [facility] Clear Clarity Clear LAB UGLUC Negative mg/dL Glucose, Abnormal Urine >=500 Alert LAB UBIL Negative Bilirubin, Urine Negative LAB UKET Negative Ketones, Urine Negative LAB [facility] 1.005-1.030 Specific [place], Ur 1.009 LAB UHGB Negative Hemoglobin/Blood, Negative [...] Epithelial Cells Performed By: #### UAWMIC #### [facility] [employer] [address] [place], [place] [address] ALBUMIN/CREAT RATIO Collected: 02/13/2018 Status: F Source: [place] 9:58 AM [facility] REPOSITORY TYPE CODE TESTS RESULT OUT [...] 1995, 25:107) Performed By: #### UACR #### [facility] [employer] [address] [place], [place] [address] HEMOGLOBIN A1C Collected: 02/13/2018 Status: F Source: [place] 9:42 AM [facility] REPOSITORY TYPE CODE TESTS RESULT OUT OF REFERENCE UNITS RANGE LAB HGBA1C 4.3-5.6 % High Hemoglobin A1c 8.3 LAB HBA0 mg/dL Est. Average Glucose 192 Result Comment: eAG: (Estimated average glucose) is a calculated value from HgbA1c and is customer development representative of the average blood glucose level in the last 2-3 month period. Performed By: #### HBA1C, CMP, LIPB #### [facility] [employer] [address] [place], [place] [address] COMP METABOLIC PANEL Collected: 02/13/2018 Status: F Source: [place] 9:42 AM [facility] REPOSITORY TYPE [...] mg/dL High Glucose 195 Result Comment: The [place] Diabetes Association (ADA) provides guidance for cutoff [...] Standards of Medical Care in Diabetes 2016, [place] Diabetes Association. Diabetes Care. 2016.39(Suppl 1). LAB [...] Performed By: #### HBA1C, CMP, LIPB #### [facility] [address] [place], [place] [address] LIPID PANEL, BASIC Collected: 02/13/2018 Status: F Source: [place] 9:42 AM [facility] REPOSITORY TYPE CODE TESTS RESULT OUT OF [...] Desk Reference: National Heart, Lung, and Blood [place]. National Institutes of Health. 2001: NIH Publication No. 01-3305. 2. An International Atherosclerosis Society position paper: global recommendations for the management of dyslipidemia: executive summary, Atherosclerosis. 2014: 232(2):410-413. Performed By: #### HBA1C, CMP, LIPB #### [facility] [address] [place], [place] [address] INITAL EVALUATION (1) Observed: 02/07/2018 Status: F Source: [place] - PT 1:00 PM [facility] REPOSITORY [facility] [address] [place], [place] [address] Fax REHABILITATION SERVICES INITIAL EVALUATION MR#: [id number] Acct: [id number] Name: DEBBY BAILON Rep #: [id number] : 1980 37 From: Scott Cho PT, ATC Referring Dr.: MRAIO Fung Status: REG RCR Insurance: MEDICARE PART [...] to be FAXED BACK to us at [phone] for Medicare purposes. Please let me know if there are questions or concerns regarding this plan of care. Physician Signature: Date: <Electronically signed by Scott Cho PT, ATC> 02/07/18 1300 CC: MARIO Fung; Will Dietz MD [facility] Signed For Medicare only, by signing this I certify the plan of care. Physicians Signature Date SURGERY VISIT REPORT Observed: 01/30/2018 Status: F Source: [place] 2:27 PM [facility] REPOSITORY [facility] [address] [place] [address]. [address] [place], [place] [address] OFFICE VISIT Date of Service: 01/30/18 MR#: [id number] Acct: [id number] Name: DEBBY BAILON Rep #: [id number] : 1980 Provider: Nemesio Josue MD Age/Sex: 37/F Location: [facility] Status: Signed Intake Intake Visit Reasons: 1 wk f/u FNA RT Thyroid Gland Detail Technician Required: No Is patient in pain?: No [...] Cosigner Signature: Date (if applicable) CC: Will iDetz MD EMERGENCY DEPARTMENT Observed: 01/30/2018 Status: F Source: [place] SUMMARY 1:41 PM [facility] REPOSITORY [facility] Medical Records Department [address] [place] [address] Emergency Department Summary 01/30/18 1338 MR#: [id number] Acct: [id number] Name: DEBBY BAILON Rep #: [id number] : 1980 37 From: Jayson Yost MD [...] Pelvic pain This note was generated with [employer] dictation software. It may contain incorrect words, [...] your Primary Care Provider. Call [facility] ([phone]) or report to the closest Emergency Room. Call 911 if necessary. 01/30/18 1341 <Electronically signed by Jayson Yost MD> Date Jayson Yost MD Cosigner Signature (If Indicated): Date CC: Will Dietz MD CBC W/DIFF, AUTOMATED Collected: 01/30/2018 Status: F Source: [place] 11:44 AM [facility] REPOSITORY TYPE CODE TESTS RESULT OUT OF [...] Performed By: #### L100.0100 #### [facility] [address] [place], [address] COMPREHENSIVE METABOLIC Collected: 01/30/2018 Status: F Source: [place] 11:44 AM [facility] REPOSITORY TYPE CODE TESTS RESULT OUT OF [...] Performed By: #### L500.4050 #### [facility] [address] [place], [address] URINALYSIS, COMPLETE Collected: 01/30/2018 Status: F Source: [place] 11:35 AM [facility] REPOSITORY Order Comment: Order Date: 01/30/18 Has [...] Performed By: #### L400.0001 #### [facility] [address] [place], [address] PROGRESS Observed: 01/30/2018 Status: COMPLETED Source: [place] 9:57 AM [facility] REPOSITORY HNO ID: [id number] Author: Abbe Naylor (Don) Monty Service: (none) [...] mouth as needed. Blood-Glucose Meter (ACCU-CHEK ANISH) [facility] Dispense 1 meter kit. Dx: Other DM [...] thoracic - Dysthymic disorder Depression (non-psychotic), sees TELECOMMUNICATIONS LINESWORKER at [facility]. 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 - Lumbago 02/12/2015 - Migraine - Miscarriage - Morbid obesity (HCC) 02/12/2015 - Muscle weakness of left lower extremity 08/07/2013 - Neck pain 05/02/2013 - Neurogenic bladder 02/12/2015 - Neurogenic bladder - Neurogenic bowel 01/06/2016 - Neuropathy ([facility]) 02/12/2015 post back surgery with secondary infection. Seeing Dr. 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 Abbe Millan, MSN FINISH REPAIR WORKER.MAINTENANCE CHIEF CNOV Observed: 01/30/2018 Status: COMPLETED Source: [place] 9:40 AM [facility] REPOSIT[facility] DEBBY [facility]AILON ([id number]) 1980 F Date Time Provider Department 01/30/18 9:40 AM ABBE MILLAN (TELECOMMUNICATIONS LINESWORKER) [facility] During your visit today, we recorded the following information about you: Temperature Pulse Respiration Blood pressure 97.7 degrees 80/minute 20/minute 120/88 Weight 108 kg Abbe Millan, MSN FINISH REPAIR WORKER.MAINTENANCE CHIEF 01/30/2018 10:13 AM Signed Chief Complaint Patient [...] mouth as needed. Blood-Glucose Meter (ACCU-CHEK ANISH) [facility] Dispense 1 meter kit. Dx: Other DM [...] thoracic - Dysthymic disorder Depression (non-psychotic), sees TELECOMMUNICATIONS LINESWORKER at [facility]. 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 Abbe Millan, MSN FINISH REPAIR WORKER.MAINTENANCE CHIEF Referring Provider: ABBE MILLAN (TELECOMMUNICATIONS LINESWORKER) [[id number]] Allergies As of Date: 01/30/2018 Noted Allergy [...] and lower extr*INVALID FOR*01/06/2016 Priority: D Lipomeningocele ([facility]) [Q05.9] INVALID FOR* Priority: B Lumbago [M54.5] INVALID FOR* Priority: M Neuropathy ([facility]) [G62.9] INVALID FOR* Priority: A More... Morbid obesity ([facility]) [E66.01] INVALID FOR* Priority: B Chronic pain [G89.29] INVALID FOR* Priority: M Neurogenic bladder [N31.9] INVALID FOR* Priority: B Hydronephrosis, right [N13.30] INVALID FOR* Priority: C History of kidney stones [Z87.442] INVALID FOR* Priority: C Spina bifida ([facility]) [Q05.9] INVALID FOR* Priority: B Neurogenic bowel [...] VISIT REPORT Observed: 01/23/2018 Status: F Source: [place] 8:37 AM [facility] [address] [place] [address] [address] [place] [address] OFFICE VISIT Date of Service: 01/23/18 MR#: [id number] Acct: [id number] Name: UVALDODEBBY L Rep #: [id number] : 1980 Provider: Nemesio Josue MD Age/Sex: 37/F Location: [facility] Status: Signed Intake Intake Visit Reasons: FNA Rt Thyroid Gland Detail Technician Required: No Is patient in pain?: No [...] aspiration of dominant right thyroid nodule Surgeon: O'Kean Procedure: Ultrasound of the right thyroid gland [...] procedure Alert Kely Alert Billing: Yes FNA 12775 Thyroid Procedure Time Out Time Out Informed [...] Orders: Coding Level of Care Code Attention Kely Diagnoses Uninodular goiter E04.1 Additional Codes FNA - Fine Needle Aspiration: 16060 Thyroid (95711) 01/23/18 0837 <Electronically signed by Nemesio Josue MD> Date Nemesio Josue MD Cosigner Signature: Date (if applicable) CC: ASP RADIOLOGY (FLUID) Observed: 01/23/2018 Status: F Source: [place] 8:15 AM [facility] REPOSITORY Patient: DEBBY BAILON : 1980 (37/F) Acct Num: [id number] Phys: Joselo FITZGERALD,Nemesio Unit Num: [id number] Loc: [facility] Specimen: [id number] Received: 01/23/18 - [...] Submitted for staining. / 01/23/18 TC:5 CPT: 53380, 34806, 50403 CYTOLOGY STUDY Slides are reviewed. DIAGNOSIS CYTOLOGY [...] aspiration, right thyroid (12 slides) Signed Zafar Xavier 01/24/18 <signature on file> Performed By: #### MARCEG #### [facility] [place], [address] SURGERY VISIT REPORT Observed: 01/22/2018 Status: F Source: [place] 8:27 [facility] REPOSITORY [facility] [address] [place] [address] OFFICE VISIT Date of Service: 01/18/18 MR#: [id number] Acct: [id number] Name: DEBBY BAILON Rep #: [id number] : 1980 Provider: Nemesio Josue MD Age/Sex: 37/F Location: [facility] Status: Signed Intake Vital Signs01/18/18 Height 5 ft 2.5 in 01/18/18 Weight: 235 lb 6 oz 01/18/18 Body Mass Index (BMI) 42.3 01/18/18 Blood Pressure 124/91 Intake Visit Reasons: Thryoid US [facility] 01/01 aware to bring disc Chief Complaint: abn thyroid US Detail Technician Required: No Is patient in pain?: No Allergies mushroom Allergy (Verified 01/21/18 01:33) Anaphylaxis peanut Allergy (Verified 01/21/18 01:33) Anaphylaxis Gadolinium-MRI Contrast Medium Adverse Reaction (Verified 08/26/18 01:33) Vomiting Medications Gabapentin 300 mg PO [...] had a thyroid ultrasound done at the [facility] in [facility] on January 01, 2018. This showed [...] person, oriented to place, oriented to time [facility] Head: normocephalic, atraumatic Ears: external ears normal [...] EMERGENCY DEPARTMENT Observed: 01/21/2018 Status: F Source: [place] SUMMARY 5:28 AM [facility] Medical Records Department [address] [place] [address] Emergency Department Summary 01/21/18 0414 MR#: [id number] Acct: [id number] Name: DEBBY BAILON Rep #: [id number] : 1980 37 From: Nemesio Pro MD [...] 1. Dysuria This note was generated with [employer] dictation software. It may contain incorrect words, [...] your Primary Care Provider. Call [facility] ([phone]) or report to the closest Emergency Room. Call 911 if necessary. 01/21/18 0528 <Electronically signed by Nemesio Pro MD> Date Nemesio Pro MD Cosigner Signature (If Indicated): Date CC: Will Dietz MD DISCHARGE INSTRUCTION Observed: 01/21/2018 Status: F Source: [place] 5:28 AM [facility] REPOSITORY [facility] Medical Records Department [address] [place] [address] Discharge Instruction 01/21/18 0416 MR#: [id number] Acct: [id number] Name: DEBBY BAILON Rep #: [id number] : 1980 37 From: Nemesio Pro MD [...] your Primary Care Provider. Call [facility] ([phone]) or report to the closest Emergency Room. Call 911 if necessary. 01/21/18 0528 <Electronically signed by Nemesio Pro MD> Date Nemesio Pro MD Cosigner Signature (If Indicated): Date CC: Will Dietz MD URINALYSIS, COMPLETE Collected: 01/21/2018 Status: F Source: [place] 2:20 AM [facility] REPOSITORY Order Comment: Order Date: 01/21/18 Has [...] Performed By: #### L400.0001 #### [facility] [address] [place], [address] Observed: 01/21/2018 Status: F Source: [place] CULTURE, URINE 2:20 AM [facility] REPOSITORY Order Date: 01/21/18 Urine Culture Below infection level. ORGANISM 1: Mixed Gram Positive Organisms [place] Count 1000-10,000 Performed By: #### M100.0650 #### [facility] [address] [place], [address] CBC W/DIFF, AUTOMATED Collected: 01/21/2018 Status: F Source: [place] 2:07 AM [facility] REPOSITORY TYPE CODE TESTS RESULT OUT OF [...] Performed By: #### L100.0100 #### [facility] [address] [place], [address] BASIC METABOLIC Collected: 01/21/2018 Status: F Source: [place] PROFILE ([facility]) 2:07 AM [facility] REPOSITORY TYPE CODE TESTS RESULT OUT OF [...] Performed By: #### L500.2500 #### [facility] [address] [facility] [place], [address] ,SERUM,HCG QUALI. Collected: Status: F Source: [place] 01/21/2018 2:07 AM [facility] REPOSITORY TYPE CODE TESTS RESULT OUT OF REFERENCE UNITS RANGE LAB L700.7000 0-9 Nonpreg Negative Normal HCGSQUAL NEGATIVE LAB L700.6700 =>Qualitative mIU/mL Normal HCG Qual < 1 triggr Performed By: #### L700.6800 #### [facility] [address] [facility] [place], [address] ABDOMEN/PELVIS WITHOUT Observed: 01/21/2018 Status: F Source: [place] CONT 2:03 AM [facility] REPOSITORY [facility] Imaging Services [address] [place] [address] Abdomen/Pelvis without Cont MR#: [id number] Acct: [id number] Name: DEBBY BAILON Rep #: [id number] : 1980 F 37 From: Emely Hay MD PCP: Will Dietz MD Status: REG ER Study: Abdomen/Pelvis without Cont Date of Exam: 01/21/18 Exam# [id number] Ordering Dr: Nemesio Pro MD STUDY: CT [...] CC: Nemesio Pro MD; Will Dietz MD Comb Winder: Signed PROGRESS Observed: 01/15/2018 Status: COMPLETED Source: [place] 1:45 PM [facility]AMPUS REPOSITORY O ID: [id number] Author: Anne Christensen Service: (none) Author Type: [...] thoracic - Dysthymic disorder Depression (non-psychotic), sees TELECOMMUNICATIONS LINESWORKER at [facility]. 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 - Lumbago 02/12/2015 - Migraine - Miscarriage - Morbid obesity (HCC) 02/12/2015 - Muscle weakness of left lower extremity 08/07/2013 - Neck pain 05/02/2013 - Neurogenic bladder 02/12/2015 - Neurogenic bladder - Neurogenic bowel 01/06/2016 - Neuropathy ([facility]) 02/12/2015 post back surgery with secondary infection. Seeing Dr. 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 Blood-Glucose Meter (ACCU-CHEK ANISH) [facility] Dispense 1 meter kit. Dx: Other DM [...] MD PROGRESS Observed: 01/08/2018 Status: COMPLETED Source: [place] 9:44 AM [facility] REPOSITORY O ID: [id number] Author: Abbe Naylor (Don) Monty Service: (none) [...] with OTC cold and sinus med from [employer] without benefit. Other sx: chills, no documented [...] thoracic - Dysthymic disorder Depression (non-psychotic), sees TELECOMMUNICATIONS LINESWORKER at [facility]. 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 [...] mouth as needed. Blood-Glucose Meter (ACCU-CHEK ANISH) [facility] Dispense 1 meter kit. Dx: Other DM [...] directed, ulcer of left 1st metatarsal, measurement: [id number], Dx: E11.621, L97.522 (Patient not taking: Reported on 10/05/2017 ) No current facility-administered medications on file prior to visit. 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 [...] MG CAPSULE (TAMPER RESISTANT) Abbe Millan, MSN FINISH REPAIR WORKER.MAINTENANCE CHIEF CNOV Observed: 01/08/2018 Status: COMPLETED Source: [place] 9:40 AM [facility] REPOSITORY [facility] DEBBY BAILON ([id number]) 1980 F Date Time Provider Department 01/08/18 9:40 AM ABBE MILLAN (TELECOMMUNICATIONS LINESWORKER) [facility]WS During your visit today, we recorded the following information about you: Temperature Pulse Respiration Blood pressure 97.7 degrees 72/minute 18/minute 110/86 Weight 108.4 kg Abbe Millan, MSN FINISH REPAIR WORKER.MAINTENANCE CHIEF 01/08/2018 10:18 AM Signed Chief Complaint Patient [...] with OTC cold and sinus med from [facility] without benefit. Other sx: chills, no documented [...] thoracic - Dysthymic disorder Depression (non-psychotic), sees TELECOMMUNICATIONS LINESWORKER at [facility]. 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 [...] - Type 2 diabetes mellitus without complication ([facility]) 02/12/2015 - Urinary tract infection, site not [...] mouth as needed. Blood-Glucose Meter (ACCU-CHEK ANISH) [facility] Dispense 1 meter kit. Dx: Other DM [...] directed, ulcer of left 1st metatarsal, measurement: [id number], Dx: E11.621, L97.522 (Patient not taking: Reported on 10/05/2017 ) No current facility-administered medications on file prior to visit. 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 [...] MG CAPSULE (TAMPER RESISTANT) Abbe Millan, MSN FINISH REPAIR WORKER.MAINTENANCE CHIEF Referring Provider: SELF [200] Allergies As of Date: 01/08/2018 Noted Allergy Reaction MUSHROOM 06/10/2016 10 - Anaphylaxis PEANUTS 06/10/2016 10 - Anaphylaxis MRI CONTRAST (GADOLINIUM-CONTAINI*01/03/2017 8 - GI Upset Date Reviewed: 01/08/2018 Reviewed by: Abbe Naylor ([place]) Monty - Fully Assessed Reason for Visit: [...] Medication notes this encounter COMPOUNDED PRESCRIPTION >> Sherill A Hambel JUNIOR HIGH SCHOOL TEACHER 01/08/2018 9:27 AM >> SIMEON RUTHERFORD LPN MonJan 08, 2018 9:27 AM Not taking. Simeon Rutherford JUNIOR HIGH SCHOOL TEACHER Problem List As Of Date 01/08/2018 Noted [...] and lower extr*INVALID FOR*01/06/2016 Priority: D Lipomeningocele ([facility]) [Q05.9] INVALID FOR* Priority: B Lumbago [M54.5] INVALID FOR* Priority: M Neuropathy ([facility]) [G62.9] INVALID FOR* Priority: A More... Morbid obesity ([facility]) [E66.01] INVALID FOR* Priority: B Chronic pain [G89.29] INVALID FOR* Priority: M Neurogenic bladder [N31.9] INVALID FOR* Priority: B Hydronephrosis, right [N13.30] INVALID FOR* Priority: C History of kidney stones [Z87.442] INVALID FOR* Priority: C Spina bifida ([facility]) [Q05.9] INVALID FOR* Priority: B Neurogenic bowel [K59.2] INVALID FOR* Priority: B Primary insomnia [F51.01] INVALID FOR* Priority: A Type 2 diabetes mellitus with proteinuria ([facility])*INVALID FOR* Priority: A Pyelonephritis [N12] INVALID FOR* Diabetic eye exam ([facility]) [Z01.00, E11.9] INVALID FOR* Priority: A More... 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 Ulcer of left foot ([facility]) [L97.529] INVALID FOR* Priority: M Paroxysmal SVT [...] directed, ulcer of left 1st metatarsal, measurement: [id number], Dx: E11.621, L97.522 Patient not taking: Reported on 10/05/2017 Disc: Course of therapy completed Disposition: Return in about 3 weeks (around 01/29/2018). Follow-up and Disposition History Recorded Encounter Status:Closed by ABBE MILLAN CNP on 01/08/18 CNOV Observed: 01/02/2018 Status: COMPLETED Source: [place] 2:30 PM [facility] Office Visit ([facility]) UVALDODEBBY Colette ([id number]) 1980 F Date Time Provider Department 01/02/18 2:30 PM ANNE [facility] During your visit [...] thoracic - Dysthymic disorder Depression (non-psychotic), sees TELECOMMUNICATIONS LINESWORKER at [facility]. 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 - Lumbago 02/12/2015 - Migraine - Miscarriage - Morbid obesity (HCC) 02/12/2015 - Muscle weakness of left lower extremity 08/07/2013 - Neck pain 05/02/2013 - Neurogenic bladder 02/12/2015 - Neurogenic bladder - Neurogenic bowel 01/06/2016 - Neuropathy ([facility]) 02/12/2015 post back surgery with secondary infection. Seeing Dr. 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 Blood-Glucose Meter (ACCU-CHEK ANISH) [facility] Dispense 1 meter kit. Dx: Other DM [...] A Type 2 diabetes mellitus with proteinuria ([facility])*INVALID FOR* Priority: A Pyelonephritis [N12] INVALID FOR* Diabetic eye exam ([facility]) [Z01.00, E11.9] INVALID FOR* Priority: A More... Migraine without aura and without status migrai*INVALID FOR* Priority: A Type 2 diabetes mellitus with albuminuria ([facility])*INVALID FOR* Priority: A Well adult exam [Z00.00] INVALID FOR* Priority: E More... Ulcer of left foot ([facility]) [L97.529] INVALID FOR* Priority: M Paroxysmal SVT [...] 01/15/18 PROGRESS Observed: 01/01/2018 Status: COMPLETED Source: [place] 1:27 PM [facility] REPOSITORY HNO ID: [id number] Author: Megan Gonzalez Service: (none) Author Type: Hand Laster Type: Progress Notes Filed: 01/01/2018 1:27 PM [...] Not applicable SIGNED BY: MEGAN GONZALEZ RDMS RVIsis January 01, 2018 1:27 PM US THYROID/PARATHYROID Observed: 01/01/2018 Status: F Source: [place] 1:26 PM [facility] REPOSITORY * * *Final Report* * * DATE OF EXAM: Jan 01 2018 1:26PM [facility] 1048 - US THYROID/PARATHYROID / PROCEDURE REASON: [...] thyroid lobe. No suspicious or solid mass Comb Winder: PSCB Transcribe Date/Time: Jan 01 2018 6:12P Dictated by : GAMA TAPIA MD This examination was interpreted and the report reviewed and electronically signed by: GAMA TAPIA MD on Jan 01 2018 6:14PM EST [id number] ED NOTE Observed: 12/26/2017 Status: COMPLETED Source: [place] 12:27 PM [facility] OTHER CAMPUS REPOSITORY HNO ID: [id number] Author: Kati ValdezRn) CAROL Be Service: Emergency Medicine Author Type: Registered Nurse Type: ED Notes Filed: 12/26/2017 12:27 PM Note Text: Pt given icepack . Aware up for d/c . Aware waiting on paperwork ED PROV NOTE Observed: 12/26/2017 Status: COMPLETED Source: [place] 12:16 PM [facility] REPOSITORY HNO ID: [id number] Author: Annamaria Petersen MD Service: Emergency Medicine [...] ED NOTE Observed: 12/26/2017 Status: COMPLETED Source: [place] 11:34 AM [facility] REPOSITORY HNO ID: [id number] Author: Kati Hinojosa) CAROL Be Service: Emergency Medicine Author Type: Registered Nurse Type: ED Notes Filed: 12/26/2017 11:34 AM Note Text: Visitor at bedside. ED PROV NOTE Observed: 12/26/2017 Status: COMPLETED Source: [place] 11:12 AM [facility] OTHER CAMPUS REPOSITORY [facility] ID: [id number] Author: Annamaria Petersen MD Service: Emergency Medicine [...] thoracic - Dysthymic disorder Depression (non-psychotic), sees TELECOMMUNICATIONS LINESWORKER at [facility]. 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 [...] - Type 2 diabetes mellitus without complication ([facility]) 02/12/2015 - Urinary tract infection, site not [...] EMERGENCY DEPARTMENT Observed: 12/24/2017 Status: F Source: [place] SUMMARY 3:43 PM [facility] REPOSITORY [facility] Medical Records Department [address] [place] [address] Emergency Department Summary 12/24/17 0735 MR#: [id number] Acct: [id number] Name: DEBBY BAILON Rep #: [id number] : 1980 37 From: Jayson Yost MD PCP: Will Dietz MD Status: DEP ER - ER Visit Summary Date of Service: 12/24/17 Chief Complaint: [Abdominal pain] History of Present Illness: The patient is a 37 F with abdominal pain for the past 2 weeks since her recent abdominal hernia surgery done at [facility]. She has no fever or chills she [...] [Abdominal pain] This note was generated with [employer] dictation software. It may contain incorrect words, spelling, and punctuation that were not noted in review of the chart prior to signing ED Disposition - Plan for ED Patient: Disposition: Home or Assisted Living Chief Complaint: Abd Pain Instructions: Abdominal Pain Prescriptions: Hydrocodone Bitart/Apap 5-325 [[place] 5/325] 1 - 2 tab PO Q4H PRN PRN #3 tab PRN Reason: Pain Referrals: Will Dietz MD [Primary Care Provider] - 2 Days What to do if you have Problems For any increased pain, shortness of breath, bleeding, nausea or vomiting, chest pain, or any unexpected problems, contact your Primary Care Provider. Call [facility] ([phone]) or report to the closest Emergency Room. Call 911 if necessary. 12/24/17 1543 <Electronically signed by Jayson Yost MD> Date Jayson Yost MD Cosigner Signature (If Indicated): Date CC: Will Dietz MD CBC W/DIFF, AUTOMATED Collected: 12/24/2017 Status: F Source: [place] 7:45 AM [facility] REPOSITORY TYPE CODE TESTS RESULT OUT OF [...] Performed By: #### L100.0100 #### [facility] [address] [place], [place], [address] COMPREHENSIVE METABOLIC Collected: 12/24/2017 Status: F Source: [facility] 7:45 AM [facility] REPOSITORY TYPE CODE TESTS RESULT OUT OF [...] Performed By: #### L500.4050 #### [facility] [address] [place], [address] ABDOMEN/PELVIS W IV CONT Observed: 12/24/2017 Status: F Source: [place] ONLY 7:35 AM [facility] REPOSITORY [facility] Imaging Services [address] [place] [address] Abdomen/Pelvis W IV Cont ONLY MR#: [id number] Acct: [id number] Name: DEBBY BAILON Rep #: [id number] : 1980 F 37 From: Daniel Fitch PCP: Will Dietz MD Status: REG ER Study: Abdomen/Pelvis W IV Cont ONLY Date of Exam: 12/24/17 Exam# [id number] Ordering Dr: Jayson Yost MD STUDY: CT [...] CC: Will Dietz MD; Jayson Yost MD Comb Winder: Signed EMERGENCY DEPARTMENT Observed: 12/20/2017 Status: F Source: [place] SUMMARY 6:08 PM [facility] REPOSITORY [facility] Medical Records Department [address] [place] [address] Emergency Department Summary 12/20/17 1623 MR#: [id number] Acct: [id number] Name: DEBYB BAILON Rep #: [id number] : 1980 37 From: rDe Deal MD PCP: Will Dietz MD Status: [...] 24-48 hours. She contacted her surgeon at [facility]. He requested that she come [...] obtained and consultation with her surgeon at [facility]. Her surgeon returned my page. He informed me that she has a Knapp stoma and reason she is passing gas from her umbilicus. Plan is to discharge to home with antibiotics if CT of the abdomen reveals no significant findings. If there is gas and more gas than prior scan in fluid collection previously noted she is to be transferred to [facility] otherwise follow-up as outpatient in 2-3 days Impression: 1. Subcutaneous fluid collection evaluate for abscess 2. Knpap stoma 3. History of spina bifida 4. History of frequent UTIs 5. History of type 2 diabetes This note was generated with [employer] dictation software. It may contain incorrect words, [...] problems, contact your Primary Care Provider. Call [facility] ([phone]) or report to the closest Emergency Room. Call 911 if necessary. 12/20/17 3008 <Electronically signed by Dre Deal MD> Date Dre Deal MD Cosigner Signature (If Indicated): Date CC: Will Dietz MD ABDOMEN/PELVIS WITH Observed: 12/20/2017 Status: F Source: [place] CONTRAST 3:27 PM [facility] REPOSITORY [facility] Imaging Services [address] [place] [address] Abdomen/Pelvis WITH Contrast MR#: [id number] Acct: [id number] Name: DEBBY BAILON Rep #: [id number] : 1980 F 37 From: Tulio Hartmann MD PCP: Will Dietz MD Status: REG ER Study: Abdomen/Pelvis WITH Contrast Date of Exam: 12/20/17 Exam# [id number] Ordering Dr: Dre Deal MD STUDY: CT [...] CC: Will Dietz MD; Dre Deal MD Comb Winder: Signed BASIC METABOLIC Collected: 12/20/2017 Status: F Source: [place] PROFILE (BMP) 1:20 PM [facility] REPOSITORY TYPE CODE TESTS RESULT OUT OF [...] Performed By: #### L500.2500 #### [facility] [place], [address] CBC W/DIFF, AUTOMATED Collected: 12/20/2017 Status: F Source: [place] 1:20 PM [facility] REPOSITORY TYPE CODE TESTS RESULT OUT OF [...] Performed By: #### L100.0100 #### [facility] [address] [place], [address] 12 LEAD ELECTROCARDIOGRAM Observed: 12/19/2017 Status: F Source: [place] 1:18 PM [facility] REPOSITORY [facility] Cardiovascular Services [address] [place] [address] 12 Lead EKG 12/16/17 0808 MR#: [id number] Acct: [id number] Name: DEBBY BAILON Rep #: [id number] : 1980 37 From: Jayson Alvarez MD [...] Normal ECG Confirmed by STEFANI FITZGERALD, JAYSON ([id number]), editor & co founder LYLA HAY ([id number]) on 12/19/2017 1:18:31 PM Referred By: EMMANUEL Confirmed By:JAYSON ALVAREZ MD 12/19/17 1318 Date Jayson Alvarez MD CC: Will Dietz MD; Taya Wong MD Signed EMERGENCY DEPARTMENT Observed: 12/18/2017 Status: F Source: [place] SUMMARY 1:33 AM [facility] REPOSITORY [facility] Medical Records Department [address] [place] [address] Emergency Department Summary 12/18/17 0003 MR#: [id number] Acct: [id number] Name: DEBBY BAILON Rep #: [id number] : 1980 37 From: Celine Boateng MD PCP: Will Dietz MD Status: DEP ER - ER Visit Summary Date of Service: 12/18/17 Chief Complaint: Abdominal pain History of Present Illness: The patient is a 37 F presents to the emergency department with abdominal pain. The patient had hernia repair done on December [address] [facility] by Dr. Rios. She states [...] patient can safely be discharged. I did behavioral school counselors her that she needs to call her surgeon tomorrow from [place] to discuss plan of care. She will continue her oral antibiotics. I did add new antiemetics and antispasmodics to her regimen. She was counseled on concerning symptoms and reasons to return. The patient be discharged home. Treatment Plan: [] Disposition: Discharge Impression: Postoperative abdominal pain This note was generated with [employer] dictation software. It may contain incorrect words, [...] your Primary Care Provider. Call [facility] ([phone]) or report to the closest Emergency Room. Call 911 if necessary. 12/18/17 0133 <Electronically signed by Celine Boateng MD> Date Celine Boateng MD Cosigner Signature (If Indicated): Date CC: Will Dietz MD COMPREHENSIVE METABOLIC Collected: 12/17/2017 Status: F Source: [place] 12:02 AM [facility] REPOSITORY TYPE CODE TESTS RESULT OUT OF [...] Performed By: #### L500.4050 #### [facility] [address] [place], [address] CBC W/DIFF, AUTOMATED Collected: 12/17/2017 Status: F Source: [place] 12:02 AM [facility] REPOSITORY TYPE CODE TESTS RESULT OUT OF [...] Performed By: #### L100.0100 #### [facility] [address] [facility] [place], [address] EMERGENCY DEPARTMENT Observed: 12/16/2017 Status: F Source: [place] SUMMARY 4:26 PM [facility] REPOSITORY [facility] Medical Records Department [address] [place] [address] Emergency Department Summary 12/16/17 0823 MR#: [id number] Acct: [id number] Name: DEBBY BAILON Rep #: [id number] : 1980 37 From: Taya Wong MD PCP: Will Dietz MD Status: DEP ER - ER Visit Summary Date of Service: 12/16/17 Chief Complaint: Short of breath, dizzy, nausea History of Present Illness: The patient is a 37 F who underwent umbilical hernia repair on December 11 at [facility]. She had a prior stoma at that [...] thyroid nodule This note was generated with [employer] dictation software. It may contain incorrect words, [...] problems, contact your Primary Care Provider. Call [facility] [employer] [facility] ([phone]) or report to the closest Emergency Room. Call 911 if necessary. 12/16/17 1626 <Electronically signed by Taya Wong MD> Date Taya Wong MD Cosigner Signature (If Indicated): Date CC: Will Dietz MD DISCHARGE INSTRUCTION Observed: 12/16/2017 Status: F Source: [place] 12:32 PM [facility] REPOSITORY [facility] Medical Records Department [address] [place] [address] Discharge Instruction 12/16/17 1230 MR#: [id number] Acct: [id number] Name: DEBBY BAILON Rep #: [id number] : 1980 37 From: Taya Wong MD [...] problems, contact your Primary Care Provider. Call [facility] [employer] [facility] ([phone]) or report to the closest Emergency Room. Call 911 if necessary. 12/16/17 1232 <Electronically signed by Taya Wong MD> Date Taya Wong MD Cosigner Signature (If Indicated): Date CC: Will Dietz MD URINALYSIS, COMPLETE Collected: 12/16/2017 Status: F Source: [place] 9:25 AM [facility] REPOSITORY Order Comment: Order Date: 12/16/17 Has [...] Performed By: #### L400.0001 #### [facility] [address] [place], [address] CBC W/DIFF, AUTOMATED Collected: 12/16/2017 Status: F Source: [place] 8:35 AM [facility] REPOSITORY TYPE CODE TESTS RESULT OUT OF [...] Performed By: #### L100.0100 #### [facility] [place], [address] BASIC METABOLIC Collected: 12/16/2017 Status: F Source: [place] PROFILE (BMP) 8:35 AM [facility] REPOSITORY TYPE CODE TESTS RESULT OUT OF [...] Performed By: #### L500.2500 #### [facility] [address] [facility] [place], [address] CHEST 1 VIEW Observed: 12/16/2017 Status: F Source: [place] (PORTABLE) 8:18 AM [facility] REPOSITORY [facility] Imaging Services [address] [place] [address] Chest 1 View (Portable) MR#: [id number] Acct: [id number] Name: DEBBY BAILON Rep #: [id number] : 1980 F 37 From: Kirsten Torres MD PCP: Will Dietz MD Status: REG ER Study: Chest 1 View (Portable) Date of Exam: 12/16/17 Exam# [id number] Ordering Dr: Taya Wong MD STUDY: X-RAY [...] CC: Will Dietz MD; Taya Wong MD Comb Winder: Signed ABDOMEN/PELVIS WITH Observed: 12/16/2017 Status: F Source: [place] CONTRAST 8:18 AM [facility] REPOSITORY [facility] Imaging Services [address] [place] [address] Abdomen/Pelvis WITH Contrast MR#: [id number] Acct: [id number] Name: DEBBY BAILON Rep #: [id number] : 1980 F 37 From: Kirsten Torres MD PCP: Will Dietz MD Status: REG ER Study: Abdomen/Pelvis WITH Contrast Date of Exam: 12/16/17 Exam# [id number] Ordering Dr: Taya Wong MD STUDY: CT [...] CC: Will Dietz MD; Taya Wong MD Comb Winder: Signed CTA CHEST W/WO Observed: 12/16/2017 Status: F Source: [place] CONTRAST 8:18 AM [facility] REPOSITORY [facility] Imaging Services [address] [place] [address] CTA Chest W/WO Contrast MR#: [id number] Acct: [id number] Name: DEBBY BAILON Rep #: [id number] : 1980 F 37 From: Kirsten Torres MD PCP: Will Dietz MD Status: REG ER Study: CTA Chest W/WO Contrast Date of Exam: 12/16/17 Exam# [id number] Ordering Dr: Taya Wong MD STUDY: CTA [...] CC: Will Dietz MD; Taya Wong MD Comb Winder: Signed GLUCOSE METER Collected: 12/12/2017 Status: F Source: [facility] 4:52 PM HEALTH SYSTEM REPOSITORY TYPE CODE TESTS RESULT OUT OF REFERENCE UNITS RANGE LAB GLUBL(LOINC 70-99 mg/dL ) High Glucose Meter 186 Result Comment: RN NOTIFIED Performed By: #### GLMET #### [facility] [address] [address] CNDS Observed: 12/12/2017 Status: COMPLETED Source: [place] 3:18 PM CLINIC OTHER CAMPUS REPOSITORY HNO ID: [id number] Author: Naty Araiza Service: General Surgery Author [...] medication (see prescription) You should use an bzny-awz-wuamzwe stool softener (Docusate sodium) and/or a fiber [...] Patient/Parents to call for appointment?: Yes Anne Shayne [phone] 1 [facility] [address] [facility] [address] PCP Requested Referral Additional Provider to Provider Information: No notes on file FOLLOW-UP APPOINTMENTS ALREADY SCHEDULED WITH A [facility] PROVIDER: Future Appointments Date Time Provider Department Center 02/28/2018 5:40 PM [facility] [place] DISCHARGE MEDICATION: Current Discharge Medication List START [...] migrainosus, not intractable; Paroxysmal SVT (supraventricular tachycardia) ([facility]) DULoxetine (CYMBALTA) 30 mg Take 30 mg by mouth once daily. Qty: 30 capsule Refills: 5 metFORMIN ER (GLUCOPHAGE XR) 1,000 mg Take 1,000 mg by mouth twice daily. Qty: 120 tablet Refills: 5 Associated Diagnoses:Type 2 diabetes mellitus without complication, without long-term current use of insulin ([facility]) lisinopril 2.5 mg Take 2.5 mg by mouth once daily. Qty: 30 tablet Refills: 11 Associated Diagnoses:Type 2 diabetes mellitus with albuminuria ([facility]) oxybutynin ER (DITROPAN XL) 10 mg Take 10 mg by mouth once daily. Qty: 20 tablet Refills: 0 gabapentin (NEURONTIN) 300 mg Take 300 mg by mouth three times daily. zolpidem (AMBIEN) 1 tablet Take 1 tablet by mouth as needed. Blood-Glucose Meter (ACCU-CHEK ANISH) [facility] Dispense 1 meter kit. Dx: Other DM [...] directed, ulcer of left 1st metatarsal, measurement: 7ybv1hiz0on, Dx: E11.621, L97.522 Qty: 1 Package Refills: 3 Associated Diagnoses:Other diabetic neurological complication associated with type 2 diabetes mellitus (HCC); Toe amputation status, left (HCC); Diabetic ulcer of toe of left foot [...] management of this patient. SIGNATURE: Naty Araiza APRN.MAINTENANCE CHIEF PAGER/CONTACT #: [phone] DATE: December 12, 2017 TIME: 3:18 PM NURSING PROG Observed: 12/12/2017 Status: COMPLETED Source: [place] 2:27 PM [facility]IN[facility] OTHER CAMPUS REPOSITORY HNO ID: [id number] Author: Margarita Hinojosa) CAROL Hay Service: Nursing Author Type: Registered Nurse Type: Nursing Progress Note Filed: 12/12/2017 2:28 PM Note Text: 1425 Transferred on bed to [facility] NURSING PROG Observed: 12/12/2017 Status: COMPLETED Source: [facility] 2:19 [facility] REPOSITORY HNO ID: [id number] Author: Margarita Hinojosa) Jose Raul RN Service: Nursing Author Type: Registered Nurse Type: Nursing Progress Note Filed: 12/12/2017 2:20 PM Note Text: 1330 Report called to Vasiliy Medina for [phone] -2 Room not ready NURSING PROG Observed: 12/12/2017 Status: COMPLETED Source: [place] 6:35 AM [facility] REPOSITORY HNO ID: [id number] Author: Benjie ValdezRn) CAROL Maurice Service: Nursing Author Type: Registered Nurse Type: Nursing Progress Note Filed: 12/12/2017 6:36 AM Note Text: Dr Briceno by to see pt, informed of unable to obtain blood specimen this morning. NURSING PROG Observed: 12/12/2017 Status: COMPLETED Source: [place] 6:15 AM [facility] REPOSITORY HNO ID: [id number] Author: Benjie ValdezRn) CAROL Maurice Service: Nursing Author Type: Registered Nurse Type: Nursing Progress Note Filed: 12/12/2017 6:16 AM Note Text: Unsuccessful blood draw attempts by 2 RN's twice each. Pt tolerated well. PROGRESS Observed: 12/12/2017 Status: COMPLETED Source: [place] 6:13 AM [facility] REPOSITORY HNO ID: [id number] Author: Pérez Briceno Service: General Surgery Author [...] Therapy: Nasal Cannula IANDO: Date 12/11/17699 - 12/12/1759 12/12/17699 - 12/13/17 0659 Shift [id number] 8969-7653 5392-7146 24 Hour Total 6180-3219 6800-1447 7875-7020 24 Hour Total I N T A [...] ANES POST Observed: 12/12/2017 Status: COMPLETED Source: [place] 12:02 [facility] REPOSITORY HNO ID: [id number] Author: Javier Pruett Service: Anesthesiology Author Type: [...] 12, 2017 TIME: 12:02 AM PAGER/CONTACT #: [phone] OPERATIVE NO Observed: 12/11/2017 Status: COMPLETED Source: [place] 7:10 PM [facility] REPOSITORY HNO ID: [id number] Author: Pérez Briceno Service: General Surgery Author Type: Resident Type: Operative Report Filed: 12/12/2017 12:06 PM Note Text: Attestation signed by Anne Christensen at 12/12/2017 3:32 PM I was present for the critical portions of the procedure and was immediately available to provide assistance. I agree with the residents operative dictation. Anne Christensen MD December 12, 2017 3:32 PM OPERATIVE/PROCEDURE REPORT LOG ID: [id number] SURGERY/PROCEDURE DATE: 12/11/2017 INCISION/PROCEDURE START TIME: 5:23 PM INCISION CLOSE/PROCEDURE END TIME: 6:51 PM SURGEON(S)/PROCEDURALIST(S) AND PROOF CARRIER(S): Surgeon(s) and Role: * Anne Christensen - [...] OP NOT Observed: 12/11/2017 Status: COMPLETED Source: [place] 6:53 PM [facility] REPOSITORY [facility] ID: [id number] Author: Pérez Briceno Service: General Surgery Author Type: Resident Type: Brief Op Note Filed: 12/11/2017 6:54 PM Note Text: BRIEF OPERATIVE / PROCEDURE NOTE LOG ID: [id number] SURGERY/PROCEDURE DATE: 12/11/2017 INCISION/PROCEDURE START TIME: 5:23 PM INCISION CLOSE/PROCEDURE END TIME: 6:51 PM SURGEON(S)/PROCEDURALIST(S) AND PROOF CARRIER(S): Surgeon(s) and Role: * Anne Christensen - Primary Pérez Briceno MD - [...] NURSING PROG Observed: 12/11/2017 Status: COMPLETED Source: [place] 5:38 PM [facility] REPOSITORY HNO ID: [id number] Author: Hilda (Rn) CAROL Gonzalez Service: Nursing Author Type: Registered Nurse Type: Nursing Progress Note Filed: 12/11/2017 5:39 PM Note Text: Family updated URINE HCG, QUAL. Collected: 12/11/2017 Status: F Source: [facility] 1:25 PM [facility] REPOSITORY TYPE CODE TESTS RESULT OUT OF REFERENCE UNITS RANGE LAB URHCG(LOIN Negative C) HCG, Qual. Negative Urine LAB SPGR(LOINC 1.005-1.030 ) Specific 1.013 [place], Ur Performed By: #### HCGUR #### [place] [address] ANES PREOP Observed: 12/11/2017 Status: COMPLETED Source: [place] 1:13 PM [facility] REPOSITORY HNO ID: [id number] Author: Celine Alfred Service: Anesthesiology Author Type: [...] Lipomeningocele (Hcc) Lumbago Neuropathy (Hcc) Morbid Obesity ([facility]) Chronic Pain Neurogenic Bladder Hydronephrosis, Right History of Kidney Stones Spina Bifida ([facility]) Neurogenic Bowel Primary Insomnia Type 2 Diabetes Mellitus With Proteinuria ([facility]) Pyelonephritis Diabetic Eye Exam ([facility]) Migraine Without Aura and Without Status Migrainosus, Not Intractable Type 2 Diabetes Mellitus With Albuminuria ([facility]) Well Adult Exam Ulcer of Left Foot ([facility]) Paroxysmal Svt (Supraventricular Tachycardia) ([facility]) Dm (Diabetes Mellitus), Secondary, Uncontrolled, W/Renal Complications ([facility]) PAST MEDICAL HISTORY Diagnosis Date - Abnormal sensation of left upper and lower extremity 08/07/2013 - Anxiety - Arthritis started age 19 - Cervical radiculopathy 05/02/2013 - Chronic pain 02/12/2015 - Depressive disorder, not elsewhere classified 11/28/2011 [facility] - DJD (degenerative joint disease), thoracic - Dysthymic disorder Depression (non-psychotic), sees TELECOMMUNICATIONS LINESWORKER at [facility]. 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 Seeing Dr. Gregg - Numbness and tingling of left arm and leg 08/07/2013 - Panic attacks - Recurrent UTI 11/28/2011 - Spina bifida ([facility]) 01/06/2016 - Type 2 diabetes mellitus without complication ([facility]) 02/12/2015 - Urinary tract infection, site not [...] directed, ulcer of left 1st metatarsal, measurement: [id number], Dx: E11.621, L97.522 (Patient not taking: Reported on 10/05/2017 ) hydrOXYzine pamoate (VISTARIL) 25 mg capsule Take 1 capsule by mouth three times daily as needed. Per [facility] Current Facility-Administered Medications: lidocaine 10 mg/mL (1 %) 1-2 mg injection (XYLOCAINE) 0.1- 0.2 mL INTRADERMAL PRN Noaman Ali lactated ringers infusion 5-30 mL/hr INTRAVENOUS [...] December 11, 2017 TIME: 1:13 PM CSN: [id number] CNPN Observed: 12/05/2017 Status: COMPLETED Source: [place] 12:00 AM [facility] REPOSITORY [facility] DEBBY BAILON ([id number]) 1980 F Date Time Provider Department 12/05/17 [facility] During your visit today, we recorded the [...] [facility] to ask for letter for manager flight pet as advised by pcp. She was told that her pcp has to do that. Now pt is confused. Yinelise Uribe LPN Fifi Shorepaulette WATERS 12/05/2017 3:12 PM Signed Patient calling to check status of request. Patient said she tests twice daily for her meter. Will Dietz MD 12/05/2017 3:52 PM Signed Please fax scripts to [facility]. please call the counseling Center and discuss with them that the patient called requesting a letter for a manager flight pet. patient sees them for her Anxiety [...] 12/05/2017 4:02 PM [facility] Left detailed message on Dr. Coates Voicemail at counseling center Patient advised pcp does not give letters for this and needs to come from counselor who manages anziety/panic attacks. Patient is aware that message left on Dr. Coates voicemail requesting if staff can contact patient if letter is fit medical necessity Chasidy Cade Ma Fifi Peñanisa WATERS 12/05/2017 5:02 PM Signed [facility] pharmacy calling said do not carry stoma catheter and not sure where patient will be able to get it from. Phoned patient and let her know pharmacy does not carry stoma catheter and she said she will call [facility] in the morning. Allergies As of Date: [...] INVALID FOR* Priority: A More... Morbid obesity ([facility]) [E66.01] INVALID FOR* Priority: B Chronic pain [G89.29] INVALID FOR* Priority: M Neurogenic bladder [N31.9] INVALID FOR* Priority: B Hydronephrosis, right [N13.30] INVALID FOR* Priority: C History of kidney stones [Z87.442] INVALID FOR* Priority: C Spina bifida ([facility]) [Q05.9] INVALID FOR* Priority: B Neurogenic bowel [K59.2] INVALID FOR* Priority: B Primary insomnia [F51.01] INVALID FOR* Priority: A Type 2 diabetes mellitus with proteinuria ([facility])*INVALID FOR* Priority: A Pyelonephritis [N12] INVALID FOR* Diabetic eye exam ([facility]) [Z01.00, E11.9] INVALID FOR* Priority: A More... Migraine without aura and without status migrai*INVALID FOR* Priority: A Type 2 diabetes mellitus with albuminuria ([facility])*INVALID FOR* Priority: A Well adult exam [Z00.00] INVALID FOR* Priority: E More... Ulcer of left foot ([facility]) [L97.529] INVALID FOR* Priority: M Paroxysmal SVT (supraventricular tachycardia) (*INVALID FOR* Priority: A More... DM (diabetes mellitus), secondary, uncontrolled*INVALID FOR* Prescriptions ordered this encounter Disp Refills Start End BLOOD-GLUCOSE METER 1 Ea* 0 12/05/2017 Class: Print RX Sig: Dispense 1 meter kit. Dx: Other DM Code E13.29 LANCETS 100 * 11 12/05/2017 Sig: Test blood sugar 2 times/day. [...] HISTORY PHYSICAL Observed: 12/01/2017 Status: COMPLETED Source: [place] 11:03 [facility] REPOSITORY O ID: [id number] Author: Stacey Rao Service: (none) Author Type: [...] Left Foot (Hcc) Paroxysmal Svt (Supraventricular Tachycardia) ([facility]) Subjective CHIEF COMPLAINT: Ventral hernia without obstruction or gangrene HPI: Ms. Bailon is a 37 year old female present in presurgical testing. She states she found the hernia in september 2017. States she has a stoma in her stomach and she had an xray and cat scan and found it. States the xray was completed in [place] referred her to [facility] because the type of the stoma [...] thoracic - Dysthymic disorder Depression (non-psychotic), sees TELECOMMUNICATIONS LINESWORKER at [facility]. 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 - Lumbago 02/12/2015 - Migraine - Miscarriage - Morbid obesity (HCC) 02/12/2015 - Muscle weakness of left lower extremity 08/07/2013 - Neck pain 05/02/2013 - Neurogenic bladder 02/12/2015 - Neurogenic bladder - Neurogenic bowel 01/06/2016 - Neuropathy ([facility]) 02/12/2015 post back surgery with secondary infection. Seeing Dr. 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 Denies V/D. : Denies dysuria. 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 Endocrine: + diabetes. [...] #: HOSP Observed: 11/09/2017 Status: COMPLETED Source: [place] 12:00 AM [facility] REPOSITORY Patient:Debby Bailon MRN: <[id number]> Height:5' 2(1.575 m) Weight:237 lb (107.502 kg) [...] [F51.01] Type 2 diabetes mellitus with proteinuria ([facility]) [E11.29, R80.9] Pyelonephritis [N12] Diabetic eye exam ([facility]) [Z01.00, E11.9] Migraine without aura and without status migrainosus, not intractable [G43.009] Type 2 diabetes mellitus with albuminuria ([facility]) [E11.29, R80.9] Well adult exam [Z00.00] Ulcer of left foot ([facility]) [L97.529] Paroxysmal SVT (supraventricular tachycardia) ([facility]) [I47.1] DM (diabetes mellitus), secondary, uncontrolled, w/renal complications ([facility]) [E13.29, E13.65] Allergies: Mushroom Peanuts Mri Contrast [Gadolinium-Containing Contrast Media] Date Verified: 12/11/17 Lab Values No results within the last 30 days for the following basenames: K,HCT Progress Notes ([facility]): Yin Peacockpeggy WATERS 12/05/2017 10:06 AM Signed Pt calls for [...] Counseling [facility] to ask for letter for manager flight pet as advised by pcp. She was told that her pcp has to do that. Now pt is confused. Yin Uribe LPN Fifi Shorepaulette WATERS 12/05/2017 3:12 PM Signed Patient calling to check status of request. Patient said she tests twice daily for her meter. Will Dietz MD 12/05/2017 3:52 PM Signed Please fax scripts to [facility]. please call the counseling Center and discuss with them that the patient called requesting a letter for a manager flight pet. patient sees them for her Anxiety [...] 12/05/2017 4:02 PM Signed [facility] to [facility] Left detailed message on Dr. Coates Voicemail at counseling center Patient advised pcp does not give letters for this and needs to come from counselor who manages anziety/panic attacks. Patient is aware that message left on Dr. Coates voicemail requesting if staff can contact patient if letter is fit medical necessity Chasidy Cade Ma Fifi Kay JUNIOR HIGH SCHOOL TEACHER 12/05/2017 5:02 PM Signed [facility] pharmacy calling said do not carry stoma catheter and not sure where patient will be able to get it from. Phoned patient and let her know pharmacy does not carry stoma catheter and she said she will call [facility] in the morning. EMERGENCY DEPARTMENT Observed: 11/08/2017 Status: F Source: [place] SUMMARY 7:27 AM [facility] REPOSITORY [facility] Medical Records Department [address] [place] [address] Emergency Department Summary 11/08/17 0129 MR#: [id number] Acct: [id number] Name: DEBBY BAILON Rep #: [id number] : 1980 36 From: Celine Caputo MD [...] will follow up with her surgeon at [facility]. Disposition: Discharge Impression: 1. Acute on chronic abdominal pain This note was generated with [employer] dictation software. It may contain incorrect words, spelling, and punctuation that were not noted in review of the chart prior to signing ED Disposition - Plan for ED Patient: Disposition: Home or Assisted Living Chief Complaint: Abd Pain Diagnosis: Abdominal pain Instructions: ED Abdominal Pain Unkn Cause Additional Instructions: Followup with your surgeon at [facility] as scheduled. What to do if you have Problems For any increased pain, shortness of breath, bleeding, nausea or vomiting, chest pain, or any unexpected problems, contact your Primary Care Provider. Call [facility] ([phone]) or report to the closest Emergency Room. Call 911 if necessary. 11/08/17 0727 <Electronically signed by Celine Caputo MD> Date Celine Caputo MD Cosigner Signature (If Indicated): Date CC: Will Dietz MD CBC W/DIFF, AUTOMATED Collected: 11/07/2017 Status: F Source: [place] [facility] TYPE CODE TESTS RESULT OUT [...] Performed By: #### L100.0100 #### [facility] [address] [place], [place], [address] COMPREHENSIVE METABOLIC Collected: 11/07/2017 Status: F Source: [place] 11:25 PM [facility] REPOSITORY TYPE CODE TESTS RESULT OUT OF [...] By: #### L500.4050, L501.2450 #### [facility] [address] [place], [address] LIPASE Collected: 11/07/2017 Status: F Source: [place] 11:25 PM [facility] REPOSITORY TYPE CODE TESTS RESULT OUT OF RANGE REFERENCE UNITS LAB L501.2450 73-393 U/L Normal LIPASE 132 Performed By: #### L500.4050, L501.2450 #### [facility] [address] [place], [address] LACTIC ACID Collected: 11/07/2017 Status: F Source: [place] 11:25 PM [facility] REPOSITORY Order Comment: Yes/No query for Sepsis Lactate Rule Y TYPE CODE TESTS RESULT OUT OF RANGE REFERENCE UNITS LAB L503.6005 0.4-2.0 mmol/L Normal LACTIC ACID 1.4 Performed By: #### L503.6005 #### [facility] [address] [place], [address] ABDOMEN/PELVIS WITHOUT Observed: 11/07/2017 Status: F Source: [place] CONT 11:07 PM [facility] REPOSITORY [facility] Imaging Services [address] [place] [address] Abdomen/Pelvis without Cont MR#: [id number] Acct: [id number] Name: DEBBY BAILON Rep #: [id number] : 1980 F 36 From: Demetrius Britt PCP: Will Dietz MD Status: REG ER Study: Abdomen/Pelvis without Cont Date of Exam: 11/07/17 Exam# [id number] Ordering Dr: Celine Caputo MD STUDY: CT [...] support , CC: Will Dietz MD; Celine Caupto Comb Winder: Signed PROGRESS NOTE Observed: 11/07/2017 Status: COMPLETED Source: [place] 3:00 PM [facility] REPOSITORY Debby Bailon is here for consultation at the request of Will Dietz MD for: Urologic Problem ([facility] Discuss Knapp Stoma surgery) History of Presenting Problem: Patient referred by Dr. Christensen for problems with her Knapp Stoma. [facility] Knapp [facility] She developed an umbilical hernia and Dr. [...] reports prior visits with Dr. Sears at [facility]. She would like to continue seeing her. [...] stoma performed by Ramana Diaz MD at [facility] Allergies: Allergies Allergen Reactions Mushroom Extract [...] nothing. Will coordinate with Dr. Christensen at [facility]. Recommended follow up with Dr. Farhat Sears, an adult urologist at [facility] for ongoing urologic issues. In the mean [...] 07, 2017 Observed: 10/25/2017 Status: F Source: [place] URINE CULTURE 3:45 PM [facility] REPOSITORY Culture Result - 50,000 - <100,000 CFU/ml Normal urogenital fred Performed By: #### URCUL #### [facility] [address] [place], [place] [address] URINALYSIS WITH Collected: 10/25/2017 Status: F Source: [place] MICROSCOPIC 3:30 PM [facility] REPOSITORY TYPE CODE TESTS RESULT OUT OF RANGE REFERENCE UNITS LAB UCOL Yellow Color Yellow LAB [facility] Clear Clarity Abnormal Cloudy Alert LAB UGLUC Negative mg/dL Glucose, Abnormal Urine >=500 Alert LAB UBIL Negative Bilirubin, Urine Negative LAB UKET Negative Ketones, Urine Negative LAB USPG 1.005-1.030 Specific [place], Ur 1.017 LAB UHGB Negative Abnormal Hemoglobin/Blood, [...] Epithelial Cells Performed By: #### UAWMIC #### [facility] [address], [place] [address] PROGRESS Observed: 10/25/2017 Status: COMPLETED Source: [place] 2:52 PM [facility] REPOSITORY HNO ID: [id number] Author: Will Dietz Service: (none) Author Type: [...] thoracic - Dysthymic disorder Depression (non-psychotic), sees TELECOMMUNICATIONS LINESWORKER at [facility]. 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 - Lumbago 02/12/2015 - Migraine - Miscarriage - Morbid obesity (HCC) 02/12/2015 - Muscle weakness of left lower extremity 08/07/2013 - Neck pain 05/02/2013 - Neurogenic bladder 02/12/2015 - Neurogenic bladder - Neurogenic bowel 01/06/2016 - Neuropathy ([facility]) 02/12/2015 post back surgery with secondary infection. Seeing Dr. Gregg - Numbness and tingling of left arm and leg 08/07/2013 - Panic attacks - Recurrent UTI 11/28/2011 - Spina bifida ([facility]) 01/06/2016 - Type 2 diabetes mellitus without complication ([facility]) 02/12/2015 - Urinary tract infection, site not [...] directed, ulcer of left 1st metatarsal, measurement: [id number], Dx: E11.621, L97.522 (Patient not taking: Reported on 10/05/2017 ) No current facility-administered medications on file prior to visit. 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 - Lumbago 02/12/2015 - Migraine - Miscarriage - Morbid obesity (HCC) 02/12/2015 - Muscle weakness of left lower extremity 08/07/2013 - Neck pain 05/02/2013 - Neurogenic bladder 02/12/2015 - Neurogenic bladder - Neurogenic bowel 01/06/2016 - Neuropathy ([facility]) 02/12/2015 post back surgery with secondary infection. Seeing Dr. Gregg - Numbness and tingling of left arm and leg 08/07/2013 - Panic attacks - Recurrent UTI 11/28/2011 - Spina bifida (HCC) 01/06/2016 - Type 2 diabetes mellitus without complication ([facility]) 02/12/2015 - Urinary tract infection, site not [...] directed, ulcer of left 1st metatarsal, measurement: [id number], Dx: E11.621, L97.522 (Patient not taking: Reported on 10/05/2017 ) No current facility-administered medications on file prior to visit. 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 Type 2 diabetes mellitus with proteinuria ([facility]) - ICD9: 250.40, 791.0, ICD10: E11.29, R80.9 (primary diagnosis) uncontrolled - Add glimepiride (Amaryl) 2. 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 Paroxysmal SVT (supraventricular tachycardia) ([facility]) - ICD9: 427.0, ICD10: I47.1 - Patient to go to taking the propranolol 10 mg twice a day 4. Migraine without aura and without status migrainosus, not intractable - ICD9: 346.10, ICD10: G43.009 - Will see if change in propranolol for the palpitations also helps suppress her migraines 5. Primary insomnia - ICD9: 307.42, ICD10: F51.01 - stable 6. Neuropathy ([facility]) - ICD9: 355.9, ICD10: G62.9 - Stable 7. Morbid obesity ([facility]) - ICD9: 278.01, ICD10: E66.01 - Patient to try to work on weight loss. 8. Spina bifida with hydrocephalus, unspecified spinal region ([facility]) - ICD9: 741.00, ICD10: Q05.4 - S/P surgery 9. Lipomeningocele ([facility]) - ICD9: 741.90, ICD10: Q05.9 - as [...] to next visit. Referring Provider: WILL DIETZ [[id number]] Allergies As of Date: 10/25/2017 Noted Allergy [...] (HCC) [E11.29, R80.9] Paroxysmal SVT (supraventricular tachycardia) ([facility]) [I47.1] Migraine without aura and without status [...] tabletRfl: 0 URINE CULTURE [SQURCUL] Order #: [id number]. #:[id number] URINALYSIS WITH MICROSCOPIC [SQUAWMIC] Order #: [id number] FUTURE blood sugar diagnostic (FREESTYLE LITE STRIPS) test stripTest blood sugar(s) 1-2 times daily. Dx: 250.0. Insulin: NoDisp: 50 StripRfl: 11 glimepiride (AMARYL) 4 mg tabletTake 1 tablet by mouth daily with breakfast.Disp: 30 tabletRfl: 5 atorvastatin (LIPITOR) 10 mg tabletTake 1 tablet by mouth once daily.Disp: 30 tabletRfl: 5 COMP METABOLIC PANEL [SQCMP] Order #: [id number] FUTURE HGB A1C [NUKBE2O] Order #: [id number] FUTURE LIPID PANEL BASIC [SQLIPB] Order #: [id number] FUTURE URINALYSIS WITH MICROSCOPIC [SQUAWMIC] Order #: [id number] FUTURE ALBUMIN/CREAT RATIO RND UR [SQUACR] Order #: [id number] FUTURE Prescriptions as of 10/25/2017 Sig: BLOOD [...] and lower extr*INVALID FOR*01/06/2016 Priority: D Lipomeningocele ([facility]) [Q05.9] INVALID FOR* Priority: B Lumbago [M54.5] INVALID FOR* Priority: M Neuropathy ([facility]) [G62.9] INVALID FOR* Priority: A More... Morbid obesity ([facility]) [E66.01] INVALID FOR* Priority: B Chronic pain [G89.29] INVALID FOR* Priority: M Neurogenic bladder [N31.9] INVALID FOR* Priority: B Hydronephrosis, right [N13.30] INVALID FOR* Priority: C History of kidney stones [Z87.442] INVALID FOR* Priority: C Spina bifida ([facility]) [Q05.9] INVALID FOR* Priority: B Neurogenic bowel [K59.2] INVALID FOR* Priority: B Primary insomnia [F51.01] INVALID FOR* Priority: A Type 2 diabetes mellitus with proteinuria ([facility])*INVALID FOR* Priority: A Pyelonephritis [N12] INVALID FOR* Diabetic eye exam ([facility]) [Z01.00, E11.9] INVALID FOR* Priority: A More... [...] 10/25/17 PROGRESS Observed: 10/17/2017 Status: COMPLETED Source: [place] 4:42 PM CLINIC OTHER CAMPUS REPOSITORY HNO ID: [id number] Author: Anne Christensen Service: (none) Author Type: Physician Type: Progress Notes Filed: 10/17/2017 4:47 PM Note Text: Patient referred by: Fawn Coyne MD [address] [facility] [address] HPI: This is a new patient consult from Dr. Coyne. 36-year-old female with a history of spina bifida and neurogenic bladder. She underwent a maze procedure at [facility] for constipation. She has developed pain at [...] thoracic - Dysthymic disorder Depression (non-psychotic), sees TELECOMMUNICATIONS LINESWORKER at [facility]. 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 Social History [...] directed, ulcer of left 1st metatarsal, measurement: 1lkg1zzo1ab, Dx: E11.621, L97.522 (Patient not taking: Reported [...] MD CNOV Observed: 10/17/2017 Status: COMPLETED Source: [place] 3:00 PM CLINIC OTHER CAMPUS REPOSITORY Office Visit (AGGENS1) DEBBY BAILON ([id number]) 1980 F Date Time Provider Department 10/17/17 3:00 PM ANNE CHRISTENSEN AGGENS1 During your visit today, we recorded the following information about you: Pulse Blood pressure Weight Height 73/minute 130/82 110 kg 1.575 m Anne Christensen MD 10/17/2017 4:47 PM Signed Patient referred by: Fawn Coyne MD [address] [facility] [address] HPI: This is a new patient consult from Dr. Coyne. 36-year-old female with a history of spina bifida and neurogenic bladder. She underwent a maze procedure at [facility] for constipation. She has developed pain at [...] Depressive disorder, not elsewhere classified 11/28/2011 [facility] - DJD (degenerative joint disease), thoracic - Dysthymic disorder Depression (non-psychotic), sees TELECOMMUNICATIONS LINESWORKER at [facility]. 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 - CONSULT TO [facility] UR[facility]Y Anne Christensen MD Referring Provider: FAWN COYNE [[id number]] Allergies As of Date: 10/17/2017 Noted Allergy Reaction MRI CONTRAST (GADOLINIUM-CONTAINI*01/03/2017 8 - GI Upset MUSHROOM 06/10/2016 10 - Anaphylaxis PEANUTS 06/10/2016 10 - Anaphylaxis Date Reviewed: 10/17/2017 Reviewed by: Anne Christensen - Fully Assessed Reason for Visit: New Patient [172] Primary Visit Diagnosis:Incisional hernia with obstruction but no gangrene [K43.0] Order(s):CONSULT TO PEDS UROLOGY [346450] Order #: [id number]: 1 Prescriptions as of 10/17/2017 Sig: POLYETHYLENE [...] Pyelonephritis [N12] INVALID FOR* Diabetic eye exam ([facility]) [Z01.00, E11.9] INVALID FOR* Priority: A More... Migraine without aura and without status migrai*INVALID FOR* Priority: A Type 2 diabetes mellitus with albuminuria ([facility])*INVALID FOR* Priority: A Well adult exam [Z00.00] INVALID FOR* Priority: E More... Ulcer of left foot ([facility]) [L97.529] INVALID FOR* Priority: M Paroxysmal SVT (supraventricular tachycardia) (*INVALID FOR* Priority: A More... Encounter Status:Closed by ANNE CHRISTENSEN MD on 10/17/17 EMERGENCY DEPARTMENT Observed: 10/14/2017 Status: F Source: [place] SUMMARY 10:47 PM [facility] REPOSITORY [facility] Medical Records Department [address] [place] [address] Emergency Department Summary 10/14/17 1920 MR#: [id number] Acct: [id number] Name: DEBBY BAILON Rep #: [id number] : 1980 36 From: Will Barcenas MD [...] she saw Dr. Fawn Coyne at the [facility] to have her hernia repaired. Due to her complicated prior abdominal surgery Dr. Coyne has referred her up to [facility] and they are actually going to evaluate [...] Treatment: Discharge to home. Follow-up with her [facility] appointment on Monday. Treatment Plan: [] Disposition: Discharge Impression: Acute on chronic abdominal pain History of umbilical hernia easily reducible History of spina bifida and neurogenic bladder This note was generated with [employer] dictation software. It may contain incorrect words, [...] problems, contact your Primary Care Provider. Call [facility] ([phone]) or report to the closest Emergency Room. Call 911 if necessary. 10/14/17 6528 <Electronically signed by Will Barcenas MD> Date Will Barcenas MD Cosigner Signature (If Indicated): Date CC: Will Dietz MD DISCHARGE INSTRUCTION Observed: 10/14/2017 Status: F Source: [place] 10:47 PM [facility] REPOSITORY [facility] Medical Records Department [address] [place] [address] Discharge Instruction 10/14/17 1923 MR#: [id number] Acct: [id number] Name: DEBBY BAILON Rep #: [id number] : 1980 36 From: Will Barcenas MD PCP: Will Dietz MD Status: DEP ER ED Disposition - Plan for ED Patient: Disposition: Home or Assisted Living Chief Complaint: Abd Pain Additional Instructions: Tylenol and/or Motrin for pain. Plenty of fluids such as salt water and fruits, vegetables and fiber for constipation. Follow-up with your [place] [facility] appointment on Monday. Return to ER if increasing abdominal pain, distention, fever or intractable vomiting. Currently there are no signs of bowel obstruction. What to do if you have Problems For any increased pain, shortness of breath, bleeding, nausea or vomiting, chest pain, or any unexpected problems, contact your Primary Care Provider. Call [facility] ([phone]) or report to the closest Emergency Room. Call 911 if necessary. 10/14/17 2247 <Electronically signed by Will Barcenas MD> Date Will Barcenas MD Cosigner Signature (If Indicated): Date CC: Will Dietz MD COMP METABOLIC PANEL Collected: 10/10/2017 Status: F Source: [place] 2:36 PM CLINIC MAIN CAMPUS REPOSITORY TYPE [...] mg/dL Glucose High 178 Result Comment: The [place] Diabetes Association (ADA) provides guidance for cutoff [...] Standards of Medical Care in Diabetes 2016, [place] Diabetes Association. Diabetes Care. 2016.39(Suppl 1). LAB [...] Performed By: #### CMP, LIPB, HBA1C #### [facility] [address] [place], [place] [address] LIPID PANEL, BASIC Collected: 10/10/2017 Status: F Source: [place] 2:36 PM [facility] MAIN CAMPUS REPOSITORY TYPE CODE TESTS RESULT [...] Desk Reference: National Heart, Lung, and Blood [place]. National Institutes of Health. 2001: NIH Publication No. 01-3305. 2. An International Atherosclerosis Society position paper: global recommendations for the management of dyslipidemia: executive summary, Atherosclerosis. 2014: 232(2):410-413. Performed By: #### CMP, LIPB, HBA1C #### [facility] [email or web address] [address] [place], [place] [address] HEMOGLOBIN A1C Collected: 10/10/2017 Status: F Source: [place] 2:36 PM [facility] REPOSITORY TYPE CODE TESTS RESULT OUT OF REFERENCE UNITS RANGE LAB HGBA1C 4.3-5.6 % High Hemoglobin A1c 8.9 LAB HBA0 mg/dL Est. Average Glucose 209 Result Comment: eAG: (Estimated average glucose) is a calculated value from HgbA1c and is customer development representative of the average blood glucose level in the last 2-3 month period. Performed By: #### CMP, LIPB, HBA1C #### [facility] [email or web address] [address] [place], [place] [address] PROGRESS Observed: 10/06/2017 Status: COMPLETED Source: [place] 8:21 PM [facility] REPOSITORY HNO ID: [id number] Author: Fawn Coyne Service: (none) Author Type: [...] thoracic - Dysthymic disorder Depression (non-psychotic), sees TELECOMMUNICATIONS LINESWORKER at [facility]. 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 - Lumbago 02/12/2015 - Migraine - Miscarriage - Morbid obesity (HCC) 02/12/2015 - Muscle weakness of left lower extremity 08/07/2013 - Neck pain 05/02/2013 - Neurogenic bladder 02/12/2015 - Neurogenic bladder - Neurogenic bowel 01/06/2016 - Neuropathy ([facility]) 02/12/2015 post back surgery with secondary infection. Seeing Dr. Gregg - Numbness and tingling of left arm and leg 08/07/2013 - Panic attacks - Recurrent UTI 11/28/2011 - Spina bifida (HCC) 01/06/2016 - Type 2 diabetes mellitus without complication ([facility]) 02/12/2015 - Urinary tract infection, site not [...] directed, ulcer of left 1st metatarsal, measurement: 5oib0apm6fe, Dx: E11.621, L97.522 (Patient not taking: Reported on 10/05/2017 ) ALLERGIES: Mri Contrast [Gadolinium-Containing Contrast Media]; Mushroom; Peanuts PERSONAL HISTORY: Social History Marital status: Spouse name: MEHDI Years of education: 12 Number of children: 0 Occupational History 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 Will refer patient to [facility] for second opinion. I have answered all questions to the patient?s satisfaction and the patient has no further questions. Greater than 50% of this patient encounter was dedicated to face to face discussion with the patient. Diagnoses: No diagnosis found. Fawn Coyne MD CNOV Observed: 10/05/2017 Status: COMPLETED Source: [place] 3:00 PM [facility] REPOSITORY Office Visit (ALANS) DEBBY BAILON ([id number]) 1980 F Date Time Provider Department 10/05/17 3:00 PM COYNE, FAWN TIESHA GENSWS During your visit today, we recorded the following information about you: Pulse Blood pressure Weight Height 66/minute 104/60 109 kg 1.575 m HayShanna ascencio EVELIN 10/05/2017 3:22 PM Signed REVIEW OF [...] Fawn Coyne 10/06/2017 8:41 PM Signed Debby Bialon 1980 REFERRING PHYSICIAN: Mariana Cordero I, DO [...] years ago. She had been using the Kanpp stoma, up until several months ago, when [...] thoracic - Dysthymic disorder Depression (non-psychotic), sees TELECOMMUNICATIONS LINESWORKER at [facility]. 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 Will refer patient to [facility] for second opinion. I have answered all questions to the patient?s satisfaction and the patient has no further questions. Greater than 50% of this patient encounter was dedicated to face to face discussion with the patient. Diagnoses: No diagnosis found. Fawn Coyne MD Referring Provider: MARIANA CORDERO I [[id number]] Allergies As of Date: 10/05/2017 Noted Allergy [...] and lower extr*INVALID FOR*01/06/2016 Priority: D Lipomeningocele ([facility]) [Q05.9] INVALID FOR* Priority: B Lumbago [M54.5] INVALID FOR* Priority: M Neuropathy ([facility]) [G62.9] INVALID FOR* Priority: A More... Morbid obesity ([facility]) [E66.01] INVALID FOR* Priority: B Chronic pain [G89.29] INVALID FOR* Priority: M Neurogenic bladder [N31.9] INVALID FOR* Priority: B Hydronephrosis, right [N13.30] INVALID FOR* Priority: C History of kidney stones [Z87.442] INVALID FOR* Priority: C Spina bifida ([facility]) [Q05.9] INVALID FOR* Priority: B Neurogenic bowel [K59.2] INVALID FOR* Priority: B Primary insomnia [F51.01] INVALID FOR* Priority: A Type 2 diabetes mellitus with proteinuria ([facility])*INVALID FOR* Priority: A Pyelonephritis [N12] INVALID FOR* Diabetic eye exam ([facility]) [Z01.00, E11.9] INVALID FOR* Priority: A More... 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 Ulcer of left foot (HCC) [L97.529] INVALID FOR* Priority: M Paroxysmal SVT (supraventricular tachycardia) (*INVALID FOR* Priority: A More... Visit Notes: >> Shanna Joy EVELIN [facility] October 05, 2017 3:21 PM Status: Signed [...] Mammogram screening? 07/2017 Last Colonoscopy: NONE Shanna Guidosonu [employer] Letter Text Encounter Status:Closed by MD FAWN COYNE on 10/06/17 12 LEAD ELECTROCARDIOGRAM Observed: 09/18/2017 Status: F Source: [place] 2:38 PM [facility] REPOSITORY [facility] Cardiovascular Services [address] [place] [address] 12 Lead EKG 09/15/17 1522 MR#: [id number] Acct: [id number] Name: DEBBY BAILON Rep #: [id number] : 1980 36 From: Jayson Alvarez MD [...] Normal ECG Confirmed by STEFANI FITZGERALD, JAYSON ([id number]), editor & co founder YLLA HAY ([id number]) on 09/18/2017 2:37:25 PM Referred By: Arnold Caban Confirmed By:JAYSON ALVAREZ MD 09/18/17 1437 Date Jayson Alvarez MD CC: Will Dietz MD; Arnold Caban Signed EMERGENCY DEPARTMENT Observed: 09/16/2017 Status: F Source: [place] SUMMARY 1:12 AM [facility] REPOSITORY [facility] Medical Records Department [address] [place] [address] Emergency Department Summary 09/15/17 1512 MR#: [id number] Acct: [id number] Name: DEBBY BAILON Rep #: [id number] : 1980 36 From: Arnold Brice PCP: [...] September. She was told to go to [facility] for evaluation 10 days ago, however unable to get a ride up that way. She has history of constipation. Patient states had a Knapp stoma 2 years ago at [facility]. She had a colonoscopy prior by surgeon [...] neurogenic bladder and has seen urology at [facility]. She reports that while she is [...] Umbilical hernia This note was generated with [employer] dictation software. It may contain incorrect words, [...] your Primary Care Provider. Call [facility] ([phone]) or report to the closest Emergency Room. Call 911 if necessary. 09/16/17 0112 <Electronically signed by Arnold Brice> Date Arnold Brice Cosigner Signature (If Indicated): Date CC: Will Dietz MD CBC W/DIFF, AUTOMATED Collected: 09/15/2017 Status: F Source: [place] 6:05 PM [facility] REPOSITORY TYPE CODE TESTS RESULT OUT OF [...] Performed By: #### L100.0100 #### [facility] [address] [place], [place], [address] COMPREHENSIVE METABOLIC Collected: 09/15/2017 Status: F Source: [facility] 6:05 PM [facility] REPOSITORY TYPE CODE TESTS RESULT OUT OF [...] By: #### L500.4050, L501.2450 #### [facility] [address] [place], [place], [address] LIPASE Collected: 09/15/2017 Status: F Source: [place] 6:05 PM [facility] REPOSITORY TYPE CODE TESTS RESULT OUT OF RANGE REFERENCE UNITS LAB L501.2450 73-393 U/L Normal LIPASE 115 Performed By: #### L500.4050, L501.2450 #### [facility] [address] [place], [address] URINALYSIS, COMPLETE Collected: 09/15/2017 Status: F Source: [place] 3:55 PM [facility] REPOSITORY Order Comment: Order Date: 09/15/17 How was Urine Obtained? INSTANT PRINT OPERATOR TO SPECIFY TYPE CODE TESTS RESULT OUT [...] Performed By: #### L400.0001 #### [facility] [address] [place], [address] ,URINE Collected: 09/15/2017 Status: F Source: [place] 3:55 PM [facility] REPOSITORY Order Comment: Order Date: 09/15/17 TYPE CODE TESTS RESULT OUT OF REFERENCE UNITS RANGE LAB L400.8000 Negative Normal HCGUQUAL Negative Result Comment: Very dilute urine specimens, as indicated by a low specific gravity, may not contain customer development representative levels of hCG. If is still suspected, a first morning urine specimen should be collected 48 hours later and tested. Performed By: #### L400.7600 #### [facility] [address] [place], [address] ABDOMEN/PELVIS WITH Observed: 09/15/2017 Status: F Source: [place] CONTRAST 3:12 PM [facility] REPOSITORY [facility] Imaging Services [address] [place] [address] Abdomen/Pelvis WITH Contrast MR#: [id number] Acct: [id number] Name: DEBBY BAILON Rep #: [id number] : 1980 F 36 From: Lyla Xavier MD PCP: Will Dietz MD Status: REG ER Study: Abdomen/Pelvis WITH Contrast Date of Exam: 09/15/17 Exam# [id number] Ordering Dr: Arnold Caban DO CT Abdomen [...] , CC: Will Dietz MD; Arnold Caban Comb Winder: Signed PROGRESS Observed: 09/12/2017 Status: COMPLETED Source: [place] 10:24 AM [facility] REPOSITORY HNO ID: [id number] Author: Kevin Osorio Service: (none) Author Type: Physician Type: Progress Notes Filed: 09/12/2017 10:24 AM Note Text: Please see ultrasound report for details of this visit. Kevin Osorio M.D. EMERGENCY DEPARTMENT Observed: 08/26/2017 Status: F Source: [facility] 4:17 PM [facility] REPOSITORY [facility] Medical Records Department [address] [place] [address] Emergency Department Summary 08/22/17 2256 MR#: [id number] Acct: [id number] Name: DEBBY BAILON Rep #: [id number] : 1980 36 From: Nemesio Sanderson DO [...] Chronic constipation This note was generated with [employer] Limitedation software. It may contain incorrect words, spelling, [...] your Primary Care Provider. Call [facility] ([phone]) or report to the closest Emergency Room. Call 911 if necessary. 08/26/17 8797 <Electronically signed by Nemesio Sanderson DO> Date Nemesio Sanderson DO Cosigner Signature (If Indicated): Date CC: Will Dietz MD ACUTE ABDOMEN INC Observed: 08/22/2017 Status: F Source: [place] CHEST 10:38 PM [facility] REPOSITORY [facility] Imaging Services [address] [place] [address] [place] [address] Acute Abdomen Inc Chest MR#: [id number] Acct: [id number] Name: DEBBY BAILON Rep #: [id number] : 1980 F 36 From: Ki Ballesteros MD PCP: Will Dietz MD Status: [facility] Study: Acute Abdomen Inc Chest Date of Exam: 08/22/17 Exam# [id number] Ordering Dr: Nemesio Sanderson DO STUDY: X-RAY [...] CC: Nemesio Sanderson DO; Will Dietz MD Comb Winder: Signed PROGRESS Observed: 08/12/2017 Status: COMPLETED Source: [place] 9:14 PM [facility] REPOSITORY O ID: [id number] Author: Gavin Gomez Service: (none) Author Type: [...] Depressive disorder, not elsewhere classified 11/28/2011 [facility] - DJD (degenerative joint disease), thoracic - Dysthymic disorder Depression (non-psychotic), sees TELECOMMUNICATIONS LINESWORKER at [facility]. 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 - Lumbago 02/12/2015 - Migraine - Miscarriage - Morbid obesity (HCC) 02/12/2015 - Muscle weakness of left lower extremity 08/07/2013 - Neck pain 05/02/2013 - Neurogenic bladder 02/12/2015 - Neurogenic bladder - Neurogenic bowel 01/06/2016 - Neuropathy ([facility]) 02/12/2015 post back surgery with secondary infection. Seeing Dr. Gregg - Numbness and tingling of left arm and leg 08/07/2013 - Panic attacks - Recurrent UTI 11/28/2011 - Spina bifida (HCC) 01/06/2016 - Type 2 diabetes mellitus without complication ([facility]) 02/12/2015 - Urinary tract infection, site not [...] directed, ulcer of left 1st metatarsal, measurement: 0gfa1owz2kn, Dx: E11.621, L97.522 lisinopril 2.5 mg tablet [...] DPM CNOV Observed: 08/11/2017 Status: COMPLETED Source: [place] 2:10 PM [facility] REPOSITORY Office Visit (PODIWS) DEBBY BAILON ([id number]) 1980 F Date Time Provider Department 08/11/17 2:10 PM GAVIN GOMEZ During your visit today, we recorded the following information about you: Brittney Cook RN 08/11/2017 3:06 PM Signed Schedule with valuklik for diabetic shoes JamesXinguodunjella [place] [address] [facility], [facility] [address] PH: [phone] Gavin Gomez DPM 08/12/2017 9:34 PM Signed [...] thoracic - Dysthymic disorder Depression (non-psychotic), sees TELECOMMUNICATIONS LINESWORKER at [facility]. 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 - Lumbago 02/12/2015 - Migraine - Miscarriage - Morbid obesity (HCC) 02/12/2015 - Muscle weakness of left lower extremity 08/07/2013 - Neck pain 05/02/2013 - Neurogenic bladder 02/12/2015 - Neurogenic bladder - Neurogenic bowel 01/06/2016 - Neuropathy ([facility]) 02/12/2015 post back surgery with secondary infection. Seeing Dr. Gregg - Numbness and tingling of left arm and leg 08/07/2013 - Panic attacks - Recurrent UTI 11/28/2011 - Spina bifida ([facility]) 01/06/2016 - Type 2 diabetes mellitus without complication ([facility]) 02/12/2015 - Urinary tract infection, site not [...] directed, ulcer of left 1st metatarsal, measurement: 5uoc2pkh3iu, Dx: E11.621, L97.522 lisinopril 2.5 mg tablet [...] Gavin Gomez DPM Referring Provider: GAVIN GOMEZ [[id number]] Allergies As of Date: 08/11/2017 Noted Allergy [...] (HCC) [E11.49] Order(s):DIAB SHOE FOR DENSITY INSERT [[id number]] Order #: [id number] Prescriptions as of 08/11/2017 Sig: CIPROFLOXACIN 250 [...] and lower extr*INVALID FOR*01/06/2016 Priority: D Lipomeningocele ([facility]) [Q05.9] INVALID FOR* Priority: B Lumbago [M54.5] INVALID FOR* Priority: M Neuropathy ([facility]) [G62.9] INVALID FOR* Priority: A More... Morbid obesity ([facility]) [E66.01] INVALID FOR* Priority: B Chronic pain [G89.29] INVALID FOR* Priority: M Neurogenic bladder [N31.9] INVALID FOR* Priority: B Hydronephrosis, right [N13.30] INVALID FOR* Priority: C History of kidney stones [Z87.442] INVALID FOR* Priority: C Spina bifida ([facility]) [Q05.9] INVALID FOR* Priority: B Neurogenic bowel [K59.2] INVALID FOR* Priority: B Primary insomnia [F51.01] INVALID FOR* Priority: A Type 2 diabetes mellitus with proteinuria ([facility])*INVALID FOR* Priority: A Pyelonephritis [N12] INVALID FOR* Diabetic eye exam ([facility]) [E11.9, Z01.00] INVALID FOR* Priority: A More... Migraine without aura and without status migrai*INVALID FOR* Priority: A Type 2 diabetes mellitus with albuminuria ([facility])*INVALID FOR* Priority: A Well adult exam [Z00.00] INVALID FOR* Priority: E More... Ulcer of left foot ([facility]) [L97.529] INVALID FOR* Priority: M Paroxysmal SVT (supraventricular tachycardia) (*INVALID FOR* Priority: A More... Other instructions from your clinician: Schedule with [facility] for diabetic shoes [employer] [place] [address], [facility] [address] PH: [phone] Encounter Status:Closed by GAVIN GOMEZ DPM on 08/12/17 PROGRESS Observed: 08/08/2017 Status: COMPLETED Source: [place] 2:35 PM [facility] REPOSITORY HNO ID: [id number] Author: Naty Sharma Psr Service: (none) Author Type: (none) Type: Progress Notes Filed: 08/08/2017 2:35 PM Note Text: pap logged, letter sent. Naty Sharma Psr PROGRESS Observed: 08/04/2017 Status: COMPLETED Source: [place] 11:50 AM [facility] REPOSITORY HNO ID: [id number] Author: Arielle Holcomb Rt Service: (none) Author [...] WO IVCON Observed: 08/04/2017 Status: F Source: [facility] 11:50 AM [facility] REPOS[facility] * * *Final Report* * * DATE OF EXAM: Aug 04 2017 11:50AM [facility] 0194 - MRI FOOT/TOES WO IVCON LT [...] WITHOUT UNDERLYING EVIDENCE OF OSTEOMYELITIS OR ABSCESS. Comb Winder: JACI Transcribe Date/Time: Aug 04 2017 12:08P Dictated by : RAMON ANDERSON MD This examination was interpreted and the report reviewed and electronically signed by: RAMON ANDERSON MD on Aug 04 2017 12:14PM EST [id number] CBC AND DIFFERENTIAL Collected: 08/04/2017 Status: F Source: [place] 10:13 AM [facility] REPOSITORY TYPE CODE TESTS RESULT OUT OF [...] k/uL Abs Lymph 2.81 LAB AMONO % Gulf% 9.0 LAB AAMONO <0.87 k/uL Abs Gulf High 1.03 LAB AEOS % Eosin% 3.8 LAB AAEOS <0.46 k/uL Abs Eosin 0.43 LAB ABASO % Baso% 0.8 LAB AABASO <0.11 k/uL Abs Baso 0.09 LAB AUNRBC 0 /100 WBC NRBCs 0.0 LAB ABNRBC <0.01 k/uL Absolute nRBC <0.01 LAB DTYP DTYPE Auto Diff Performed By: #### CBCDIF, WSR, CRP #### [facility] [email or web address] [address] [address] SED RATE WESTERGREN Collected: 08/04/2017 Status: F Source: [place] 10:13 AM [facility] REPOSITORY TYPE CODE TESTS RESULT OUT OF REFERENCE UNITS RANGE LAB WSR 0-20 mm/hr Sed Rate High Westergren 27 Performed By: #### CBCDIF, WSR, CRP #### [facility] [address] [address] C-REACTIVE PROTEIN Collected: 08/04/2017 Status: F Source: [place] 10:13 AM [facility] REPOSITORY TYPE CODE TESTS RESULT OUT OF REFERENCE UNITS RANGE LAB CRP <0.9 mg/dL C-Reactive 0.6 Protein Performed By: #### CBCDIF, WSR, CRP #### [place] [address] PROGRESS Observed: 08/02/2017 Status: COMPLETED Source: [place] 10:24 AM [facility] REPOSITORY HNO ID: [id number] Author: Gavin Gomez Service: (none) Author Type: [...] thoracic - Dysthymic disorder Depression (non-psychotic), sees TELECOMMUNICATIONS LINESWORKER at [facility]. 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 - Lumbago 02/12/2015 - Migraine - Miscarriage - Morbid obesity (HCC) 02/12/2015 - Muscle weakness of left lower extremity 08/07/2013 - Neck pain 05/02/2013 - Neurogenic bladder 02/12/2015 - Neurogenic bladder - Neurogenic bowel 01/06/2016 - Neuropathy ([facility]) 02/12/2015 post back surgery with secondary infection. Seeing Dr. Gregg - Numbness and tingling of left arm and leg 08/07/2013 - Panic attacks - Recurrent UTI 11/28/2011 - Spina bifida ([facility]) 01/06/2016 - Type 2 diabetes mellitus without complication ([facility]) 02/12/2015 - Urinary tract infection, site not [...] directed, ulcer of left 1st metatarsal, measurement: [id number], Dx: E11.621, L97.522 lisinopril 2.5 mg tablet [...] DPM CNOV Observed: 08/02/2017 Status: COMPLETED Source: [place] 8:40 AM [facility] REPOSITORY Office Visit (PODIWS) DEBBY BAILON ([id number]) 1980 F Date Time Provider Department 08/02/17 8:40 AM GAVIN GOMEZ PODIWS During your visit today, we recorded the [...] thoracic - Dysthymic disorder Depression (non-psychotic), sees TELECOMMUNICATIONS LINESWORKER at [facility]. 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 - Lumbago 02/12/2015 - Migraine - Miscarriage - Morbid obesity (HCC) 02/12/2015 - Muscle weakness of left lower extremity 08/07/2013 - Neck pain 05/02/2013 - Neurogenic bladder 02/12/2015 - Neurogenic bladder - Neurogenic bowel 01/06/2016 - Neuropathy ([facility]) 02/12/2015 post back surgery with secondary infection. Seeing Dr. Gregg - Numbness and tingling of left arm and leg 08/07/2013 - Panic attacks - Recurrent UTI 11/28/2011 - Spina bifida ([facility]) 01/06/2016 - Type 2 diabetes mellitus without complication ([facility]) 02/12/2015 - Urinary tract infection, site not [...] directed, ulcer of left 1st metatarsal, measurement: [id number], Dx: E11.621, L97.522 lisinopril 2.5 mg tablet [...] Gavin Gomez DPM Referring Provider: GAVIN GOMEZ [[id number]] Allergies As of Date: 08/02/2017 Noted Allergy [...] [E11.49] Order(s):CBC + DIFF [SQCBCDIF] Order #: [id number] FUTURE SED RATE WESTERGREN [SQWSR] Order #: [id number] FUTURE C-REACTIVE PROTEIN (CRP) [SQCRP] Order #: [id number] FUTURE MRI FOOT/TOES WO IVCON LT [3751922] Order #: [id number] FUTURE Prescriptions as of 08/02/2017 Sig: METRONIDAZOLE [...] and lower extr*INVALID FOR*01/06/2016 Priority: D Lipomeningocele ([facility]) [Q05.9] INVALID FOR* Priority: B Lumbago [M54.5] INVALID FOR* Priority: M Neuropathy ([facility]) [G62.9] INVALID FOR* Priority: A More... Morbid obesity ([facility]) [E66.01] INVALID FOR* Priority: B Chronic pain [G89.29] INVALID FOR* Priority: M Neurogenic bladder [N31.9] INVALID FOR* Priority: B Hydronephrosis, right [N13.30] INVALID FOR* Priority: C History of kidney stones [Z87.442] INVALID FOR* Priority: C Spina bifida ([facility]) [Q05.9] INVALID FOR* Priority: B Neurogenic bowel [K59.2] INVALID FOR* Priority: B Primary insomnia [F51.01] INVALID FOR* Priority: A Type 2 diabetes mellitus with proteinuria ([facility])*INVALID FOR* Priority: A Pyelonephritis [N12] INVALID FOR* Diabetic eye exam ([facility]) [E11.9, Z01.00] INVALID FOR* Priority: A More... Migraine without aura and without status migrai*INVALID FOR* Priority: A Type 2 diabetes mellitus with albuminuria ([facility])*INVALID FOR* Priority: A Well adult exam [Z00.00] INVALID FOR* Priority: E More... Ulcer of left foot ([facility]) [L97.529] INVALID FOR* Priority: M Paroxysmal SVT [...] on 08/02/17 Observed: 07/28/2017 Status: F Source: [place] TRICHOMONAS PREP 2:33 PM [facility] REPOS[facility] Sp. Request/Comment: - Swab Smear Result - Negative for Trichomonas vaginalis antigen This test was developed and its performance characteristics determined by [facility] [place] ([facility] It has not been cleared or approved by the FDA. [facility] is regulated under CLIA as qualified to perform high-complexity testing. This test is used for clinical purposes. It should not be regarded as investigational or for research. Performed By: #### TRICHO #### [facility] [employer] It In Person [place] [address] Observed: 07/28/2017 Status: F Source: [facility] BACT/CAND VAG GRM ST 2:33 PM [facility] REPOSIT[facility] Sp. Request/Comment: - Swab Smear Result - BACTERIAL VAGINOSIS RESULT: Stain results consistent with bacterial vaginosis. --> ABNORMAL ALERT No Yeast observed No Polymorphonuclear leukocytes Performed By: #### BVCNSM #### [facility] [employer] [place] [address] CYTOLOGY Observed: 07/28/2017 Status: C Source: [place] 2:33 PM [facility] REPOSIT[facility] ADDITIONAL PROCEDURES PRESENT Specimen originated from [facility] Specimen #: [id number] Submitting Physician: MEGAN AMADOR CNM SPECIMEN SUBMITTED [...] from every slide are reviewed by a maritime guard. TIGIST Pisano(ASCP) (Electronic Signature) ADDITIONAL PROCEDURE(S) HUMAN PAPILLOMA VIRUS Date Ordered: 08/01/2017 Date Reported: 08/02/2017 Procedure Results and Interpretation Negative for HPV DNA high risk type 16 by PCR. Negative for HPV DNA high risk type 18 by PCR. Negative for HPV DNA high risk types: 31,33,35,39,45,51,52,56,58,59,66,68 by PCR. This test was developed and its performance characteristics determined by [facility]'s [facility] [place] ([facility]). It has not been cleared or [...] STAINS A: CERVICAL, SCREENING, FLUID THIN PREP DRY HOUSE OPERATOR Taya Sierra M.D., Move Coordinator Date of Report: 08/08/2017 Date of Procedure: 07/28/2017 Date of Receipt: 08/01/2017 Submitted by: MEGAN AMADOR CNM Location: [facility] Diagnostic interpretation performed at [facility], [address] [place] [address]. The Pap Smear is a screening test for cervical cancer. False negative results occur with all screening tests, emphasizing the need for rescreening at recommended intervals, and clinical correlation. PROGRESS Observed: 07/28/2017 Status: COMPLETED Source: [place] 2:02 PM [facility] REPOSIT[facility] HNO ID: [id number] Author: Megan (Demarco) Perry Service: (none) Author Type: [place] Supervisor Type: Progress Notes Filed: 07/28/2017 5:32 PM [...] thoracic - Dysthymic disorder Depression (non-psychotic), sees TELECOMMUNICATIONS LINESWORKER at [facility]. 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 - Lumbago 02/12/2015 - Migraine - Miscarriage - Morbid obesity (HCC) 02/12/2015 - Muscle weakness of left lower extremity 08/07/2013 - Neck pain 05/02/2013 - Neurogenic bladder 02/12/2015 - Neurogenic bladder - Neurogenic bowel 01/06/2016 - Neuropathy ([facility]) 02/12/2015 post back surgery with secondary infection. Seeing Dr. Gregg - Numbness and tingling of left arm and leg 08/07/2013 - Panic attacks - Recurrent UTI 11/28/2011 - Spina bifida (HCC) 01/06/2016 - Type 2 diabetes mellitus without complication ([facility]) 02/12/2015 - Urinary tract infection, site not [...] external genitalia normal, normal Bartholin's glands, urethra, [place]'s glands, no vulvar lesions, no cervical lesions, [...] GC/CHLAMYDIA AMPLIF Collected: 07/28/2017 Status: F Source: [place] 1:56 PM [facility] REPOSITORY TYPE CODE TESTS RESULT OUT OF REFERENCE UNITS RANGE LAB GCCTSR GC/Chlam Amp Cervix Source LAB GCAMPL GC Negative Amplification for Neisseria gonorrhoeae by amplification. LAB CLAMPL Chlamydia Negative Amplif for Chlamydia trachomatis by amplification. 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 - Lumbago 02/12/2015 - Migraine - Miscarriage - Morbid obesity (HCC) 02/12/2015 - Muscle weakness of left lower extremity 08/07/2013 - Neck pain 05/02/2013 - Neurogenic bladder 02/12/2015 - Neurogenic bladder - Neurogenic bowel 01/06/2016 - Neuropathy ([facility]) 02/12/2015 post back surgery with secondary infection. Seeing Dr. Gregg - Numbness and tingling of left arm and leg 08/07/2013 - Panic attacks - Recurrent UTI 11/28/2011 - Spina bifida (HCC) 01/06/2016 - Type 2 diabetes mellitus without complication ([facility]) 02/12/2015 - Urinary tract infection, site not [...] external genitalia normal, normal Bartholin's glands, urethra, [place]'s glands, no vulvar lesions, no cervical lesions, [...] 2 weeks after labs and U/S completed DEMARCO Tavera RN 08/03/2017 10:47 AM Signed Addended by: TAYA ISAACS RN on: 08/03/2017 10:47 AM Modules accepted: Orders Naty Sharma Psr 08/08/2017 2:35 PM Signed pap logged, letter sent. Naty Sharma Psr Referring Provider: WILL DIETZ [[id number]] Allergies As of Date: 07/28/2017 Noted Allergy [...] Irregular menses [N92.6] Order(s):PAP FLUID CERVICAL SCREENING [[id number]] Order #: [id number]. #:[id number] BACT/NANO VAG GRAM STAIN [SQBVCNSM] Order #: [id number] FUTURE GC/CHLAMYDIA DNA DET [SQGCCAMP] Order #: [id number]. #:[id number] TRICHOMONAS PREP [SQTRICHO] Order #: [id number]. #:[id number] CBC + DIFF [SQCBCDIF] Order #: [id number] FUTURE PROLACTIN BLD [SQPROL] Order #: [id number] FUTURE TSH BLD [SQTSH] Order #: [id number] FUTURE HPV W/GENOTYPE [SQHPVHRR] Order #: [id number]. #:[id number] Prescriptions as of 07/28/2017 Sig: CIPROFLOXACIN 250 [...] and lower extr*INVALID FOR*01/06/2016 Priority: D Lipomeningocele ([facility]) [Q05.9] INVALID FOR* Priority: B Lumbago [M54.5] INVALID FOR* Priority: M Neuropathy ([facility]) [G62.9] INVALID FOR* Priority: A More... Morbid obesity ([facility]) [E66.01] INVALID FOR* Priority: B Chronic pain [G89.29] INVALID FOR* Priority: M Neurogenic bladder [N31.9] INVALID FOR* Priority: B Hydronephrosis, right [N13.30] INVALID FOR* Priority: C History of kidney stones [Z87.442] INVALID FOR* Priority: C Spina bifida ([facility]) [Q05.9] INVALID FOR* Priority: B Neurogenic bowel [K59.2] INVALID FOR* Priority: B Primary insomnia [F51.01] INVALID FOR* Priority: A Type 2 diabetes mellitus with proteinuria ([facility])*INVALID FOR* Priority: A Pyelonephritis [N12] INVALID FOR* Diabetic eye exam ([facility]) [E11.9, Z01.00] INVALID FOR* Priority: A More... Migraine without aura and without status migrai*INVALID FOR* Priority: A Type 2 diabetes mellitus with albuminuria ([facility])*INVALID FOR* Priority: A Well adult exam [Z00.00] INVALID FOR* Priority: E More... Ulcer of left foot ([facility]) [L97.529] INVALID FOR* Priority: M Paroxysmal SVT (supraventricular tachycardia) (*INVALID FOR* Priority: A More... Disposition: Return in 2 years (on 07/29/2019) for follow up results. Please make sure ultrasound is done on a different day and prior to follow up robert. Follow-up and Disposition History Recorded Letter [facility] [address], [place] [address] Debby Bailon [address] [facility] [address] 08/08/2017 [facility]: [id number] Dear Debby, We are pleased to inform [...] a.m. and 5:00 p.m. Sincerely, Megan Amador Tre Encounter Status:Closed by MEGAN AMADOR on 07/28/17 HPV W/GENOTYPE Collected: 07/28/2017 Status: F Source: [place] 4:56 AM [facility] REPOSITORY TYPE CODE TESTS RESULT OUT [...] developed and its performance characteristics determined by [facility]'s [facility] [place] ([facility]). It has not been cleared or approved by the FDA. -[facility] is regulated under CLIA as qualified to perform high-complexity testing. This test is used for clinical purposes. It should not be regarded as inv estigational or for research. Performed By: #### HPVHRR #### [facility] [address] [place], [place] [address] PROGRESS Observed: 07/27/2017 Status: COMPLETED Source: [place] 12:34 PM [facility] RE[facility] HNO ID: [id number] Author: Maranda Echeverria Ma Service: (none) Author Type: (none) Type: Progress Notes Filed: 07/27/2017 12:35 PM Note Text: L foot ulcer irrigated with betadine saline solution. Applied Praveena to ulcer. Covered with 4x4 and herson. Patient given diabetic offloading shoe with peg assist insert. Maranda Echeverria Ma CBC AND DIFFERENTIAL Collected: 07/27/2017 Status: F Source: [place] 11:52 AM [facility] REPOSITORY TYPE CODE TESTS RESULT OUT OF [...] k/uL Abs Lymph 2.63 LAB AMONO % Gulf% 9.4 LAB AAMONO <0.87 k/uL Abs Gulf High 1.05 LAB AEOS % Eosin% 2.6 LAB AAEOS <0.46 k/uL Abs Eosin 0.29 LAB ABASO % Baso% 0.9 LAB AABASO <0.11 k/uL Abs Baso 0.10 LAB AUNRBC 0 /100 WBC NRBCs 0.0 LAB ABNRBC <0.01 k/uL Absolute nRBC <0.01 LAB DTYP DTYPE Auto Diff Performed By: #### CBCDIF, CRP, WSR #### [facility] [address] [id number] C-REACTIVE PROTEIN Collected: 07/27/2017 Status: F Source: [place] 11:52 AM [facility] RE[facility] TYPE CODE TESTS RESULT OUT OF REFERENCE UNITS RANGE LAB CRP <0.9 mg/dL High C-Reactive 0.9 Protein Performed By: #### CBCDIF, CRP, WSR #### [facility] [address] [place], [place] [address] SED RATE WESTERGREN Collected: 07/27/2017 Status: F Source: [place] 11:52 AM [facility] RE[facility] TYPE CODE TESTS RESULT OUT OF REFERENCE UNITS RANGE LAB WSR 0-20 mm/hr Sed Rate High Westergren 40 Performed By: #### CBCDIF, CRP, WSR #### [facility] [address] [address] PROLACTIN Collected: 07/27/2017 Status: F Source: [place] 11:52 AM [facility] RE[facility] TYPE CODE TESTS RESULT OUT OF REFERENCE UNITS RANGE LAB PROL 4.5-26.8 ng/mL Prolactin 18.7 Performed By: #### PROL, TSH #### [address] [address] TSH Collected: 07/27/2017 Status: F Source: [place] 11:52 AM [facility] REPOSITORY TYPE CODE TESTS RESULT OUT [...] Clinical Practice Guideline. J Clin Endocrinol Metab, 2012:97:6916-5778. 2. Jez [place]. Overview of thyroid disease in . UpToDate. 2016. Accessed on November 13, 2015. Performed By: #### PROL, TSH #### [facility] [address] [place], [place] [address] XR FOOT 3V AP/LAT/OBL Observed: 07/27/2017 Status: F Source: [facility] 11:38 AM [facility] RE[facility] * * *Final Report* * [...] FIFTH METATARSAL. HALLUX VALGUS WITH BUNION DEFORMITY. Comb Winder: PSCB Transcribe Date/Time: Jul 27 2017 12:52P Dictated by : OG BRIDGES MD This examination was interpreted and the report reviewed and electronically signed by: OG BRIDGES MD on Jul 27 2017 12:54PM EST [id number] PROGRESS Observed: 07/27/2017 Status: COMPLETED Source: [place] 11:32 AM [facility] RE[facility] HNO ID: [id number] Author: Morena Moran (Amee Rangel Service: (none) Author Type: Power Plant Operators Supervisor Type: Progress Notes Filed: 07/27/2017 11:39 AM [...] AM PROGRESS Observed: 07/27/2017 Status: COMPLETED Source: [place] 10:44 AM [facility] REPOSIT[facility] HNO ID: [id number] Author: Gavin Gomez Service: (none) Author Type: [...] thoracic - Dysthymic disorder Depression (non-psychotic), sees TELECOMMUNICATIONS LINESWORKER at [facility]. 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 [...] directed, ulcer of left 1st metatarsal, measurement: 8omf1qlz6ha, Dx: E11.621, L97.522 lisinopril 2.5 mg tablet [...] blood work. 4. F/u in 1 week Gavin Gomez DPM CNOV Observed: 07/27/2017 Status: COMPLETED Source: [place] 10:25 AM [facility] REPOS[facility] Office Visit (PODIWS) UVALDODEBBY L ([id number]) 1980 F Date Time Provider Department 07/27/17 10:25 AM GAVIN GOMEZ During your visit today, we recorded the following information about you: Gavin Gomez DPM 07/27/2017 11:48 AM Signed Follow up podiatric [...] thoracic - Dysthymic disorder Depression (non-psychotic), sees TELECOMMUNICATIONS LINESWORKER at [facility]. 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 [...] directed, ulcer of left 1st metatarsal, measurement: [id number], Dx: E11.621, L97.522 lisinopril 2.5 mg tablet [...] Maranda Echeverria Ma Referring Provider: WILL DIETZ [[id number]] Allergies As of Date: 07/27/2017 Noted Allergy Reaction MRI CONTRAST (GADOLINIUM-CONTAINI*01/03/2017 8 - GI Upset MUSHROOM 06/10/2016 10 - Anaphylaxis PEANUTS 06/10/2016 10 - Anaphylaxis Date Reviewed: 07/27/2017 Reviewed by: Brittney Cook RN - Fully Assessed Reason for Visit: Callus [Other] Primary Visit Diagnosis:Ulcer of toe of left foot, with fat layer exposed (HCC) [L97.522] Order(s):XR FOOT GENERAL 3V AP/LAT/OBL LT [4155318] Order #: [id number] FUTURE KNEE WALKER [6003635] Order #: [id number] CBC + DIFF [SQCBCDIF] Order #: [id number] FUTURE SED RATE WESTERGREN [SQWSR] Order #: [id number] FUTURE C-REACTIVE PROTEIN (CRP) [SQCRP] Order #: [id number] FUTURE Prescriptions as of 07/27/2017 Sig: CIPROFLOXACIN [...] and lower extr*INVALID FOR*01/06/2016 Priority: D Lipomeningocele ([facility]) [Q05.9] INVALID FOR* Priority: B Lumbago [M54.5] INVALID FOR* Priority: M Neuropathy ([facility]) [G62.9] INVALID FOR* Priority: A More... Morbid obesity ([facility]) [E66.01] INVALID FOR* Priority: B Chronic pain [G89.29] INVALID FOR* Priority: M Neurogenic bladder [N31.9] INVALID FOR* Priority: B Hydronephrosis, right [N13.30] INVALID FOR* Priority: C History of kidney stones [Z87.442] INVALID FOR* Priority: C Spina bifida ([facility]) [Q05.9] INVALID FOR* Priority: B Neurogenic bowel [K59.2] INVALID FOR* Priority: B Primary insomnia [F51.01] INVALID FOR* Priority: A Type 2 diabetes mellitus with proteinuria ([facility])*INVALID FOR* Priority: A Pyelonephritis [N12] INVALID FOR* Diabetic eye exam ([facility]) [E11.9, Z01.00] INVALID FOR* Priority: A More... Migraine without aura and without status migrai*INVALID FOR* Priority: A Type 2 diabetes mellitus with albuminuria ([facility])*INVALID FOR* Priority: A Well adult exam [Z00.00] INVALID FOR* Priority: E More... Ulcer of left foot ([facility]) [L97.529] INVALID FOR* Priority: M Paroxysmal SVT [...] EMERGENCY DEPARTMENT Observed: 07/25/2017 Status: F Source: [place] SUMMARY 11:33 AM [facility] REPOSITORY [facility] Medical Records Department [address] [place] [address] Emergency Department Summary 07/25/17 1130 MR#: [id number] Acct: [id number] Name: DEBBY BAILON Rep #: [id number] : 1980 36 From: Bobby Lee MD [...] Impression: Constipation This note was generated with [employer] dictation software. It may contain incorrect words, [...] your Primary Care Provider. Call [facility] ([phone]) or report to the closest Emergency Room. Call 911 if necessary. 07/25/17 1133 <Electronically signed by Bobby Lee MD> Date Bobby Lee MD Cosigner Signature (If Indicated): Date CC: Will Dietz MD DISCHARGE INSTRUCTION Observed: 07/25/2017 Status: F Source: [place] 11:33 [facility] REPOSITORY [facility] Medical Records Department [address] [place] [address] Discharge Instruction 07/25/17 1133 MR#: [id number] Acct: [id number] Name: DEBBY BAILON Rep #: [id number] : 1980 36 From: Bobby Lee MD [...] your Primary Care Provider. Call [facility] ([phone]) or report to the closest Emergency Room. Call 911 if necessary. 07/25/17 1133 <Electronically signed by Bobby Lee MD> Date Bobby Lee MD Cosigner Signature (If Indicated): Date CC: Will Dietz MD CBC W/DIFF, AUTOMATED Collected: 07/25/2017 Status: F Source: [place] 10:27 AM [facility] REPOSITORY TYPE CODE TESTS RESULT OUT OF [...] Performed By: #### L100.0100 #### [facility] [address] [place], [address] COMPREHENSIVE METABOLIC Collected: 07/25/2017 Status: F Source: [place] 10:27 AM [facility] REPOSITORY TYPE CODE TESTS RESULT OUT OF [...] By: #### L500.4050, L501.2450 #### [facility] [address] [place], [address] LIPASE Collected: 07/25/2017 Status: F Source: [place] 10:27 AM [facility] REPOSITORY TYPE CODE TESTS RESULT OUT OF RANGE REFERENCE UNITS LAB L501.2450 73-393 U/L Normal LIPASE 173 Performed By: #### L500.4050, L501.2450 #### [facility] [address] [place], [address] ,URINE Collected: 07/25/2017 Status: F Source: [place] 10:20 AM [facility] REPOSITORY Order Comment: Order Date: 07/25/17 TYPE CODE TESTS RESULT OUT OF REFERENCE UNITS RANGE LAB L400.8000 Negative Normal HCGUQUAL Negative Result Comment: Very dilute urine specimens, as indicated by a low specific gravity, may not contain customer development representative levels of hCG. If is still suspected, a first morning urine specimen should be collected 48 hours later and tested. Performed By: #### L400.7600 #### [facility] [address] [place], [address] URINALYSIS, COMPLETE Collected: 07/25/2017 Status: F Source: [place] 10:20 AM [facility] REPOSITORY Order Comment: Order Date: 07/25/17 How [...] Performed By: #### L400.0001 #### [facility] [address] [facility] [place], [address] ACUTE ABDOMEN INC Observed: 07/25/2017 Status: F Source: [facility] 10:15 AM [facility] REPOSITORY [facility] Imaging Services [address] [place] [address] Acute Abdomen Inc Chest MR#: [id number] Acct: [id number] Name: DEBBY BAILON Rep #: [id number] : 1980 F 36 From: Stephan Sood MD PCP: Will Dietz MD Status: REG ER Study: Acute Abdomen Inc Chest Date of Exam: 07/25/17 Exam# [id number] Ordering Dr: Bobby Lee MD STUDY: X-RAY [...] Stephan Sood MD at 11:15 EST Tel [phone], Service support , CC: Will Dietz MD; Bobby Lee MD Comb Winder: Signed EMERGENCY DEPARTMENT Observed: 07/22/2017 Status: F Source: [place] 6:43 PM [facility] REPOSITORY [facility] Medical Records Department [address] [place] [address] Emergency Department Summary 07/22/17 1756 MR#: [id number] Acct: [id number] Name: DEBBY BAILON Rep #: [id number] : 1980 36 From: Dre Deal MD PCP: Will Dietz MD Status: REG ER - ER Visit Summary Date of Service: 07/22/17 Chief Complaint: Left foot pain radiating to knee and urinary symptoms History of Present Illness: The patient is a 36 F who was seen earlier this week for left foot pain. She states she has an appointment with her pipe smoking machine offbearer. She denies fever, chills night sweats. She [...] her callus. Treatment Plan: Keep appointment with pipe smoking machine offbearer and if she continues to have urologic symptoms follow-up with her primary care physician Dr. Will Dietz Disposition: Discharge to home Impression: 1. Left foot pain secondary to callus plantar surface 2. Hyperglycemia in type II diabetic This note was generated with [employer] Limited[employer] software. It may contain incorrect words, spelling, and punctuation that were not noted in review of the chart prior to signing ED Disposition - Plan for ED Patient: Disposition: Home or Assisted Living Chief Complaint: Wound Instructions: Treating Corns and Calluses, ED Hyperglycemia Diabetic Referrals: Will Dietz MD [Primary Care Provider] - As Needed Additional Instructions: Keep appointment with pipe smoking machine offbearer to remove your callus. What to do if you have Problems For any increased pain, shortness of breath, bleeding, nausea or vomiting, chest pain, or any unexpected problems, contact your Primary Care Provider. Call [facility] ([phone]) or report to the closest Emergency Room. Call 911 if necessary. 07/22/17 2423 <Electronically signed by Dre Deal MD> Date Dre Deal MD Cosigner Signature (If Indicated): Date CC: Will Dietz MD BEDSIDE GLUCOSE Collected: 07/22/2017 Status: F Source: [place] 6:39 PM [facility] REPOSITORY TYPE CODE TESTS RESULT OUT OF REFERENCE UNITS RANGE LAB L501.080 70-110 mg/dL High BEDSIDE GLU 187 Result Comment: MANAGEMENT OF PATIENT CARE PER NURSING PROTOCOL Performed By: #### L501.080 #### [facility] Point of Care [address] [place] [address] URINALYSIS, COMPLETE Collected: 07/22/2017 Status: F Source: [place] 6:00 PM [facility] REPOSITORY Order Comment: Order Date: 07/22/17 Has [...] Performed By: #### L400.0001 #### [facility] [address] [place], [address] EMERGENCY DEPARTMENT Observed: 07/19/2017 Status: F Source: [place] SUMMARY 2:52 AM [facility] REPOSITORY [facility] Medical Records Department [address] [place] [address] Emergency Department Summary 07/18/17 1510 MR#: [id number] Acct: [id number] Name: DEBBY BAILON Rep #: [id number] : 1980 36 From: Celine Caputo MD [...] strict foot care and follow-up with her pipe smoking machine offbearer in the next 3 days. Disposition: Discharge Impression: 1. Diabetic foot wound This note was generated with [employer] dictation software. It may contain incorrect words, spelling, and punctuation that were not noted in review of the chart prior to signing ED Disposition - Plan for ED Patient: Chief Complaint: Wound Diagnosis: Wound, open, foot Instructions: ED Foot Care Diabetic Prescriptions: Ciprofloxacin [Cipro] 500 mg PO BID #14 tab Additional Instructions: Followup with your pipe smoking machine offbearer within the next 3 days What to do if you have Problems For any increased pain, shortness of breath, bleeding, nausea or vomiting, chest pain, or any unexpected problems, contact your Primary Care Provider. Call [facility] ([phone]) or report to the closest Emergency Room. Call 911 if necessary. 07/19/17 0252 <Electronically signed by Celine Caputo MD> Date Celine Caputo MD Cosigner Signature (If Indicated): Date CC: Will Dietz MD STRESS TEST ECHO W/O Observed: 07/18/2017 Status: F Source: [place] CONTRAST 5:32 PM [facility] REPOSITORY [facility] Cardiovascular Services [address] [place] [address] Stress Test Echo W/Contrast MR#: [id number] Acct: [id number] Name: DEBBY BAILON Rep #: [id number] : 1980 36 From: Jayson Alvarez MD Primary Care: Will Dietz MD [...] Physician: Will Dietz Performed By: Nicole Price, [place], RVT 07/18/17 1731 Date Jayson Alvarez MD CC: Will Dietz MD Date Dictated: 07/18/17 1303 Date Transcribed: 07/18/17 173 Comb Winder: Signed ECHOCARDIOGRAM COMPLETE Observed: 06/28/2017 Status: F Source: [place] 2:20 PM [facility] REPOSITORY [facility] Cardiovascular Services [address] [place] [address] Echo Complete 06/28/17 1057 MR#: [id number] Acct: [id number] Name: DEBBY BAILON Rep #: [id number] : 1980 36 From: Nemesio Barriga MD Attending Dr: Will Dietz MD Status: REG CLI Ordering Dr: Will Dietz MD Date: 06/28/17 Location: [facility] Sex: F C Admitted: Reason For [...] Date Dictated: 06/28/17 1057 Date Transcribed: 06/28/171418 Comb Winder: Signed CNOV Observed: 06/23/2017 Status: COMPLETED Source: [place] 11:00 AM [facility] REPOSITORY Office Visit (FAMPWS) DEBBY BAILON ([id number]) 1980 F Date Time Provider Department 06/23/17 11:00 AM WILL DIETZPCH[facility] During your visit today, we recorded the [...] thoracic - Dysthymic disorder Depression (non-psychotic), sees TELECOMMUNICATIONS LINESWORKER at [facility]. 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 - Lumbago 02/12/2015 - Migraine - Morbid obesity (HCC) 02/12/2015 - Muscle weakness of left lower extremity 08/07/2013 - Neck pain 05/02/2013 - Neurogenic bladder 02/12/2015 - Neurogenic bladder - Neurogenic bowel 01/06/2016 - Neuropathy ([facility]) 02/12/2015 post back surgery with secondary infection. Seeing Dr. Gregg - Numbness and tingling of left arm and leg 08/07/2013 - Panic attacks - Recurrent UTI 11/28/2011 - Spina bifida (HCC) 01/06/2016 - Type 2 diabetes mellitus without complication ([facility]) 02/12/2015 - Urinary tract infection, site not [...] directed, ulcer of left 1st metatarsal, measurement: [id number], Dx: E11.621, L97.522 No current facility-administered medications on file prior to visit. 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 Neuropathy (HCC) - ICD9: 355.9, ICD10: [...] to next visit. Referring Provider: WILL DIETZ [[id number]] Allergies As of Date: 06/23/2017 Noted Allergy [...] Insulin: NoDisp: 100 EachRfl: 11 CONSULT TO MEDICAL STAFF SERVICES COORDINATOR [9023] Order #: [id number]: 1 ECG COMPLETE W INTERPRETATION [ECG01] Order #: [id number] FUTURE ECHO [661587] Order #: [id number]: 1 FUTURE STRESS REGULAR W/TREAD [0291333] Order #: [id number]: 1 SPIROMETRY - BASELINE AND POST DILATOR [3108985] Order #: [id number] FUTURE DULoxetine (CYMBALTA) 30 mg capsuleTake 1 capsule by mouth once daily.Disp: 30 capsuleRfl: 5 metFORMIN ER (GLUCOPHAGE XR) 500 mg 24 hr tabletTake 2 tablets by mouth twice daily.Disp: 120 tabletRfl: 5 propranolol (INDERAL) 10 mg tabletTake 1 tablet by mouth once daily.Disp: 30 tabletRfl: 5 HOLTER MONITOR 48 HOUR [5078674] Order #: [id number] FUTURE COMP METABOLIC PANEL [SQCMP] Order #: [id number] FUTURE HGB A1C [VEATE5B] Order #: [id number] FUTURE LIPID PANEL BASIC [SQLIPB] Order #: [id number] FUTURE zolpidem (AMBIEN) 5 mg tabletTake 1 [...] and lower extr*INVALID FOR*01/06/2016 Priority: D Lipomeningocele ([facility]) [Q05.9] INVALID FOR* Priority: B Lumbago [M54.5] INVALID FOR* Priority: M Neuropathy ([facility]) [G62.9] INVALID FOR* Priority: A More... Morbid obesity ([facility]) [E66.01] INVALID FOR* Priority: B Chronic pain [G89.29] INVALID FOR* Priority: M Neurogenic bladder [N31.9] INVALID FOR* Priority: B Hydronephrosis, right [N13.30] INVALID FOR* Priority: C History of kidney stones [Z87.442] INVALID FOR* Priority: C Spina bifida ([facility]) [Q05.9] INVALID FOR* Priority: B Neurogenic bowel [K59.2] INVALID FOR* Priority: B Primary insomnia [F51.01] INVALID FOR* Priority: A Type 2 diabetes mellitus with proteinuria ([facility])*INVALID FOR* Priority: A Pyelonephritis [N12] INVALID FOR* Diabetic eye exam ([facility]) [E11.9, Z01.00] INVALID FOR* Priority: A More... Migraine without aura and without status migrai*INVALID FOR* Priority: A Type 2 diabetes mellitus with albuminuria ([facility])*INVALID FOR* Priority: A Well adult exam [Z00.00] INVALID FOR* Priority: E More... Ulcer of left foot ([facility]) [L97.529] INVALID FOR* Priority: M Other instructions [...] 06/23/17 PROGRESS Observed: 06/23/2017 Status: COMPLETED Source: [place] 10:54 AM [facility] REPOSITORY HNO ID: [id number] Author: Will Dietz Service: (none) Author Type: [...] thoracic - Dysthymic disorder Depression (non-psychotic), sees TELECOMMUNICATIONS LINESWORKER at [facility]. 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 [...] directed, ulcer of left 1st metatarsal, measurement: [id number], Dx: E11.621, L97.522 No current facility-administered medications on file prior to visit. 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 Neuropathy (HCC) - ICD9: 355.9, ICD10: [...] AND DIFFERENTIAL Collected: 06/16/2017 Status: F Source: [place] 12:55 PM [facility] REPOSITORY TYPE CODE TESTS RESULT OUT [...] k/uL Abs Lymph 2.51 LAB AMONO % Gulf% 7.5 LAB AAMONO <0.87 k/uL Abs Gulf 0.73 LAB AEOS % Eosin% 2.1 LAB AAEOS <0.46 k/uL Abs Eosin 0.21 LAB ABASO % Baso% 0.9 LAB AABASO <0.11 k/uL Abs Baso 0.09 LAB AUNRBC 0 /100 WBC NRBCs 0.0 LAB ABNRBC <0.01 k/uL Absolute nRBC <0.01 LAB DTYP DTYPE Auto Diff Performed By: #### CBCDIF, CMP #### [facility] [address] [place], [place] [address] COMP METABOLIC PANEL Collected: 06/16/2017 Status: F Source: [place] 12:55 PM [facility] REPOSITORY TYPE CODE TESTS RESULT OUT OF REFERENCE UNITS RANGE LAB TP 6.3-8.0 g/dL Protein, Total 7.4 LAB ALB 3.9-4.9 g/dL Albumin 3.9 LAB CA 8.5-10.2 mg/dL Calcium, Total 9.3 LAB TBIL 0.2-1.3 mg/dL Bilirubin, Total 0.2 LAB ALKP 32-117 U/L Alkaline Phosphatase 73 LAB AST 13-35 U/L AST High 36 LAB GLU 74-99 mg/dL Glucose High 283 Result Comment: The [place] Diabetes Association (ADA) provides guidance for cutoff [...] Standards of Medical Care in Diabetes 2016, [place] Diabetes Association. Diabetes Care. 2016.39(Suppl 1). LAB [...] GFR. Performed By: #### CBCDIF, CMP #### [facility] [address] [place] [id number] PROGRESS Observed: 06/15/2017 Status: COMPLETED Source: [place] 12:52 PM [facility] REPOSITORY HNO ID: [id number] Author: Martina Luther Service: (none) Author Type: Disabilities Services Officer Type: Progress Notes Filed: 06/15/2017 12:53 PM Note Text: The patient has been identified by name and date of : YES I have scheduled the patient for an appointment on 06/23/2017. The patient will report to the lab prior to the visit. CBC CMP Needs to Schedule appointment for pap PHMA Documentation 06/15/2017 Opts out of [facility] No Appointments Scheduled Scheduled PCP Appt DM2 with No Urine Alb Confirmed Complete DM2 with No DFE Confirmed Complete Martina Luther MA PROGRESS Observed: 06/14/2017 Status: COMPLETED Source: [place] 4:00 PM [facility] REPOSITORY HNO ID: [id number] Author: Will Dietz Service: (none) Author Type: Physician Type: Progress Notes Filed: 06/15/2017 12:53 PM Note Text: Labs placed. PROGRESS Observed: 06/14/2017 Status: COMPLETED Source: [place] 9:03 AM [facility] REPOSITORY HNO ID: [id number] Author: Martina Luther Service: (none) Author Type: Disabilities Services Officer Type: Progress Notes Filed: 06/15/2017 12:53 PM [...] MA CNPTOUTREACH Observed: 06/14/2017 Status: COMPLETED Source: [place] 12:00 AM [facility] REPOSITORY Patient Outreach (FAMPWS) DEBBY BAILON ([id number]) 1980 F Date Time Provider Department 06/14/17 [...] pap PHMA Documentation 06/15/2017 Opts out of [facility] No Appointments Scheduled Scheduled PCP Appt [...] R80.9] Order(s):CBC + DIFF [SQCBCDIF] Order #: [id number] FUTURE COMP METABOLIC PANEL [SQCMP] Order #: [id number] FUTURE Prescriptions as of 06/14/2017 Sig: COMPOUNDED [...] and lower extr*INVALID FOR*01/06/2016 Priority: D Lipomeningocele ([facility]) [Q05.9] INVALID FOR* Priority: B Lumbago [M54.5] INVALID FOR* Priority: M Neuropathy ([facility]) [G62.9] INVALID FOR* Priority: A More... Morbid obesity ([facility]) [E66.01] INVALID FOR* Priority: B Chronic pain [G89.29] INVALID FOR* Priority: M Neurogenic bladder [N31.9] INVALID FOR* Priority: B Hydronephrosis, right [N13.30] INVALID FOR* Priority: C History of kidney stones [Z87.442] INVALID FOR* Priority: C Spina bifida ([facility]) [Q05.9] INVALID FOR* Priority: B Neurogenic bowel [K59.2] INVALID FOR* Priority: B Primary insomnia [F51.01] INVALID FOR* Priority: A Type 2 diabetes mellitus with proteinuria ([facility])*INVALID FOR* Priority: A Pyelonephritis [N12] INVALID FOR* Diabetic eye exam ([facility]) [E11.9, Z01.00] INVALID FOR* Priority: A More... Migraine without aura and without status migrai*INVALID FOR* Priority: A Type 2 diabetes mellitus with albuminuria ([facility])*INVALID FOR* Priority: A Well adult exam [Z00.00] INVALID FOR* More... Ulcer of left foot ([facility]) [L97.529] INVALID FOR* Encounter Status:Closed by MARTINA LUTHER on 06/15/17 ALBUMIN/CREAT RATIO Collected: 06/02/2017 Status: F Source: [place] 11:27 AM [facility] REPOSITORY TYPE CODE TESTS RESULT [...] 1995, 25:107) Performed By: #### UACR #### [facility] [email or web address] [address] [place], [place] [address] SED RATE WESTERGREN Collected: 06/02/2017 Status: F Source: [place] 11:26 AM [facility] REPOSITORY TYPE CODE TESTS RESULT OUT OF REFERENCE UNITS RANGE LAB WSR 0-20 mm/hr Sed Rate High Westergren 35 Performed By: #### WSR, FT4, CK, LIPB, MG1, TSH, CRP, HBA1C #### [facility] [email or web address] [address] [place], [place] [address] FREE T4 Collected: 06/02/2017 Status: F Source: [place] 11:26 AM [facility] REPOSITORY TYPE CODE TESTS RESULT OUT OF RANGE REFERENCE UNITS LAB FT4 0.9-1.7 ng/dL Free T4 1.1 Performed By: #### WSR, FT4, CK, LIPB, MG1, TSH, CRP, HBA1C #### [facility] [email or web address] [facility] [place], [place] [address] CK Collected: 06/02/2017 Status: F Source: [facility] 11:26 AM [facility] REPOSITORY TYPE CODE TESTS RESULT OUT OF RANGE REFERENCE UNITS LAB CK 42-196 U/L CK 80 Result Comment: Please note the updated, gender-specific reference range for this test (effective 05/12/2016). Performed By: #### WSR, FT4, CK, LIPB, MG1, TSH, CRP, HBA1C #### [facility] [email or web address] [address] [place], [place] [address] LIPID PANEL, BASIC Collected: 06/02/2017 Status: F Source: [place] 11:26 AM [facility] REPOSITORY TYPE CODE TESTS RESULT OUT [...] CK, LIPB, MG1, TSH, CRP, HBA1C #### [facility] [email or web address] [address] [place], [place] [address] MAGNESIUM Collected: 06/02/2017 Status: F Source: [place] 11:26 AM [facility] REPOSITORY TYPE CODE TESTS RESULT OUT OF REFERENCE UNITS RANGE LAB MG 1.7-2.3 mg/dL Magnesium 2.0 Performed By: #### WSR, FT4, CK, LIPB, MG1, TSH, CRP, HBA1C #### [facility] [address] [place], [place] [address] TSH Collected: 06/02/2017 Status: F Source: [place] 11:26 AM [facility] REPOSITORY TYPE CODE TESTS RESULT OUT [...] Clinical Practice Guideline. J Clin Endocrinol Metab, 2012:97:4185-3899. 2. Jez MI. Overview of thyroid disease in . UpToDate. 2016. Accessed on November 13, 2015. Performed By: #### WSR, FT4, CK, LIPB, MG1, TSH, CRP, HBA1C #### [facility] [email or web address] [address] [place], [place] [address] C-REACTIVE PROTEIN Collected: 06/02/2017 Status: F Source: [place] 11:26 AM [facility] REPOSITORY TYPE CODE TESTS RESULT OUT OF REFERENCE UNITS RANGE LAB CRP <0.9 mg/dL C-Reactive 0.6 Protein Performed By: #### WSR, FT4, CK, LIPB, MG1, TSH, CRP, HBA1C #### [facility] [email or web address] [address] [place], [place] [address] HEMOGLOBIN A1C Collected: 06/02/2017 Status: F Source: [place] 11:26 AM [facility] REPOS[facility] TYPE CODE TESTS RESULT OUT OF REFERENCE UNITS RANGE LAB HGBA1C 4.3-5.6 % High Hemoglobin A1c 8.1 LAB HBA0 mg/dL Est. Average Glucose 186 Result Comment: eAG: (Estimated average glucose) is a calculated value from HgbA1c and is customer development representative of the average blood glucose level in the last 2-3 month period. Performed By: #### WSR, FT4, CK, LIPB, MG1, TSH, CRP, HBA1C #### [facility] [email or web address] [address] [place], [place] [address] ALLERGIES ALLERGIES DATE TYPE / CODE NAME / CODE REACTION SEVERITY SOURCE 05/11/2018 Drug Gadolinium-MRI Vomiting Unknown [place] Allergy/416 Contrast [facility] 383564([facility] Medium/[id number] [facility] ED CT) 59(RXNORM) Repository 05/11/2018 Drug peanut/[id number] Anaphylaxis Unknown [place] Allergy/416 68(RXNORM) [facility] 250351([facility] ED CT) Repository 05/11/2018 Drug mushroom/C25351 Anaphylaxis Unknown [place] Allergy/416 6188(RXNORM) [facility] 327400([facility] ED CT) Repository 01/03/2017 Drug GADOLINIUM-CONT GI UPSET Low [facility] Class/58911 AINING CONTRAST [facility] [place] 1003(SNOMED MEDIA Repository CT) 01/03/2017 Drug GADOLINIUM-CONT GI UPSET [facility] Class/44368 AINING CONTRAST [facility] [place] 1003(SNOMED MEDIA Repository CT) 06/10/2016 DRUG MUSHROOM ANAPHYLAXIS High [facility] INGREDI/419 [facility] [place] 902921(SNOM Repository ED CT) 06/10/2016 Food/777726 PEANUTS ANAPHYLAXIS [facility] 000(SNOMED [facility] CT) Repository 06/10/2016 DRUG MUSHROOM ANAPHYLAXIS [facility] INGREDI/419 [facility] [place] 202717(SNOM Repository ED CT) 06/10/2016 Food/271876 PEANUTS ANAPHYLAXIS [facility] 000(SNOMED [facility] [place] [facility]) Repository 08/13/2015 DRUG MUSHROOM [facility]/419 [facility] 595886(SNOM Repository ED CT) 08/06/2015 DRUG PEANUT ALLERGY [facility]/419 [facility] 320666(SNOM Repository ED CT) NG/55148249 GADOLINIUM-CONT [facility] 6(SNOMED [facility]) MEDIA Repository NG/85858929 MUSHROOM [facility] 6(SNOMED [facility]) Repository NG/27694705 PEANUTS [facility] 6(InnovegaOMED [facility] CT) Repository ENCOUNTERS ENCOUNTERS ADMIT/DISCHARGE ACCOUNT NUMBER ADMITTING ENCOUNTER LOCATION SOURCE CLASS 05/11/2018/05/11/20 [id number] Emergency [address] ding:ED Repository 05/09/2018/05/10/20 [id number] Ambulatory [address] Repository 05/03/2018/05/04/20 [id number] Ambulatory [address] Repository 04/30/2018/04/30/20 [id number] Ambulatory [address] [place] Repository 04/26/2018/05/01/20 [id number] Ambulatory [address] Repository 04/24/2018/04/24/20 [id number] Emergency [address] ding:ED Repository 04/23/2018/04/23/20 [id number] Emergency [address] ding:ED Repository 04/14/2018/04/14/20 [id number] Emergency [address] ding:ED Repository 04/13/2018/04/13/20 [id number] Emergency [place] ding:ED Repository 04/11/2018/04/12/20 [id number] [place], Ambulatory [place] [address] [place] [address] ding:[id number] Repository : WC372Myn: 1 04/11/2018 [id number] [place], Ambulatory BMSBuilding: [place] [facility] Repository 04/11/2018 [id number] [place], Ambulatory BMSBuilding: [place] [facility] Repository 04/09/2018/04/09/20 [id number] Emergency [place] [address] [facility] ding:ED Repository 04/04/2018/04/05/20 [id number] Ambulatory [address] Repository 03/23/2018 [id number] Ambulatory [facility] ding:MRI Repository 03/22/2018/03/23/20 [id number] Emergency [place] Yong [address] [facility] ding:ED Repository 03/19/2018/03/20/20 [id number] Emergency Yong Yong [address] [facility] ding:ED Repository 03/15/2018/03/15/20 [id number] Ambulatory [address] [place] Repository 03/15/2018/03/15/20 [id number] Ambulatory [address] Repository 03/15/2018/03/15/20 [id number] Ambulatory [address] Repository 03/15/2018/03/15/20 [id number] Ambulatory [address] Repository 03/14/2018/03/14/20 [id number] Emergency [place] ding:ED Repository 03/07/2018/03/08/20 [id number] Ambulatory [address] Repository 03/06/2018/03/07/20 [id number] Emergency [place] Yong[address] ding:ED Repository 03/03/2018/03/03/20 [id number] Emergency [place] ding:ED Repository 02/28/2018/03/01/20 [id number] Ambulatory [address] Repository 02/26/2018/02/27/20 [id number] Emergency BBuilding:KEAGAN Day [address] [place] [address] Repository 02/25/2018/02/27/20 [id number] [place] ding:ED Repository 02/23/2018/02/24/20 [id number] Ambulatory [place] ding:PT Repository 02/16/2018/02/17/20 [id number] Emergency [place] [address] [place] [address] ding:ED Repository 02/14/2018/02/15/20 [id number] Emergency Yong Yong[address] ding:ED Repository 02/13/2018/02/14/20 [id number] Ambulatory [address] Repository 01/30/2018/01/31/20 [id number] Ambulatory BMSBuilding: [place] 18 BMS.[facility]ly [facility] Repository 01/30/2018/01/31/20 [id number] Emergency Yong Yong[address] ding:ED Repository 01/30/2018/02/01/20 [id number] Ambulatory [address] Repository 01/23/2018 [id number] Ambulatory [facility] ding:LABSPEC Repository 01/23/2018/01/24/20 [id number] Ambulatory BMSBuilding: Yong 18 BMS.[facility]ly [facility] Repository 01/21/2018/01/22/20 [id number] Emergency [place] ding:ED Repository 01/18/2018/01/19/20 [id number] Ambulatory BMSBuilding: [place] 18 BMS.[facility]ly [facility] Repository 01/08/2018/01/10/20 [id number] Ambulatory [address] Repository 01/02/2018/01/03/20 [id number] Ambulatory [address] Other [place] Repository 01/02/2018/01/03/20 [id number] Ambulatory [address] MEDICAL Repository CENTERBuildi ng:AGGENS1 01/01/2018/01/02/20 [id number] Ambulatory [address] Repository 12/26/2017/12/27/19 [id number] Emergency [address] Other [place] Repository 12/26/2017/12/27/19 [id number] Emergency [address] MEDICAL Repository CENTERBuildi ng:AKEDRoom: EMBed: 35 12/24/2017/12/25/19 [id number] Emergency [address] ding:ED Repository 12/20/2017/12/21/19 [id number] Emergency [place] ding:ED Repository 12/17/2017/12/19/19 [id number] Emergency [place] Yong[address] ding:ED Repository 12/16/2017/12/17/19 [id number] [place], Emergency [place] Yong 18 [facility] ding:EDRoom: Repository [id number] 12/11/2017/12/13/19 [id number] ANNE CHRISTENSEN Ambulatory [address] Repository 12/11/2017/12/13/19 [id number] ANNE CHRISTENSEN Inpatient [address] MEDICAL Repository CENTERBuildi nARoom: 5217Bed: 12/01/2017/12/02/19 [id number] Ambulatory [address] Repository 12/01/2017/12/02/19 [id number] Ambulatory [address] MEDICAL Repository CENTERBuildi ng:AKPAT 11/07/2017/11/09/19 [id number] Emergency [address] ding:ED Repository 11/07/2017/11/08/19 [id number] Ambulatory Building:[address] Repository 10/25/2017/10/26/19 [id number] Ambulatory [address] Repository 10/25/2017/10/27/19 [id number] Ambulatory [address] Repository 10/17/2017/10/18/19 [id number] Ambulatory [address] Repository 10/17/2017/10/18/19 [id number] Ambulatory [address] MEDICAL Repository CENTERBuildi ng:AGGENS1 10/14/2017/10/15/19 [id number] Emergency [place] Yong[address] ding:ED Repository 10/10/2017/10/11/19 [id number] Ambulatory [address] Repository 10/05/2017/10/10/19 [id number] Ambulatory [address] Repository 09/15/2017/09/16/19 [id number] Emergency Yong Yong[address] ding:ED Repository 09/12/2017/09/15/19 [id number] Ambulatory [address] Main [place] Repository 08/22/2017/08/23/19 [id number] Emergency [address] ding:ED Repository 08/11/2017/08/15/19 [id number] Ambulatory [place] 18 [facility] Main [place] Repository 08/04/2017/08/05/19 [id number] Ambulatory [place] 18 [facility] Main [place] Repository 08/04/2017/08/05/19 [id number] Ambulatory [place] 18 [facility] Main [place] Repository 08/02/2017/08/09/19 [id number] Ambulatory [place] 18 [facility] Main [place] Repository 07/28/2017/07/29/19 [id number] Ambulatory [address] Main [place] Repository 07/28/2017/08/02/19 [id number] Ambulatory [address] Main [place] Repository 07/27/2017/07/28/19 [id number] Ambulatory [address] Main [place] Repository 07/27/2017/07/28/19 [id number] Ambulatory [address] Main [place] Repository 07/27/2017/11/11/19 [id number] Ambulatory [address] Main [place] Repository 07/25/2017/07/25/19 [id number] Emergency [address] ding:ED Repository 07/22/2017/07/22/19 [id number] Emergency [address] ding:ED Repository 07/18/2017/07/18/19 [id number] Emergency [address] ding:ED Repository 07/18/2017 [id number] Ambulatory [facility] ding:CVS Repository 07/18/2017 [id number] Ambulatory BMSBuilding: [facility] Repository 06/28/2017 [id number] Ambulatory [facility] ding:PSN Repository 06/28/2017 [id number] Ambulatory BMSBuilding: [facility] Repository 06/28/2017 [id number] Ambulatory BMSBuilding: [facility] Repository 06/23/2017/06/23/19 [id number] Ambulatory [address] Repository 06/16/2017/06/16/19 [id number] Ambulatory [address] Repository 06/02/2017/06/02/[id number] Repository PAYERS PAYERS ENCOUNTER GUARANTOR PAYER SUBSCRIBER SOURCE 05/11/2018 DEBBY Alvarenga Primary DEBBY Green [id number] Insurance:MEDICARE BRENNEMANDOB: [facility] PART A [facility] [id number] Number: Repository [id number]: 330 [id number] [phone] (HP) Date:2018-05-11 05/11/2018 Secondary DEBBY L [place] Insurance:MEDICAIDPol BRENNEMANDOB: [facility] icy Number: [id number] Hospital [id number] Repository Date:2018-05-11 05/11/2018 Tertiary NOT GIVENUNK [place] Insurance:SELF PAY [facility] Number: Effective Repository Date:2018-05-11 04/24/2018 DEBBY Alvarenga Primary DEBBY Green [id number] Insurance:MEDICARE BRENNEMANDOB: [facility] PART A [facility] [id number] Number: Repository [address]Dbj: 330 [id number] [phone] (HP) Date:2018-04-24 04/24/2018 Secondary DEBBY L [place] Insurance:MEDICAIDPol BRENNEMANDOB: [facility] icy Number: [id number] Hospital [id number] Repository Date:2018-04-24 04/24/2018 Tertiary NOT GIVENUNK [place] Insurance:SELF PAY [facility] Number: Effective Repository Date:2018-04-24 04/23/2018 DEBBY L Primary DEBBY L [place] [id number] Insurance:MEDICARE BRENNEMANDOB: [facility] [id number] Number: Repository [address]Ady: 330 [id number] [phone] (HP) Date:2018-04-23 04/23/2018 Secondary DEBBY L [place] Insurance:MEDICAIDPol BRENNEMANDOB: [facility] icy Number: [id number] Hospital [id number] Repository Date:2018-04-23 04/23/2018 Tertiary NOT GIVENUNK [place] Insurance:SELF PAY [facility] Number: Effective Repository Date:2018-04-23 04/14/2018 DEBBY L Primary DEBBY L [place] [id number] Insurance:MEDICARE BRENNEMANDOB: [facility] [id number] [facility] [place] Number: Repository [address]Awi: 330 [id number] [phone] (HP) Date:2018-04-14 04/14/2018 Secondary DEBBY L [place] Insurance:MEDICAIDPol BRENNEMANDOB: [facility] icy Number: [id number] Hospital [id number] Repository Date:2018-04-14 04/14/2018 Tertiary NOT GIVENUNK [place] Insurance:SELF PAY [facility] Number: Effective Repository Date:2018-04-14 04/13/2018 DEBBY L Primary DEBBY L [place] [id number] Insurance:MEDICARE BRENNEMANDOB: [facility] [id number] Community [facility], [place] Number: Repository [address]Uln: 330 [id number] [phone] (HP) Date:2018-04-13 04/13/2018 Secondary DEBBY L [place] Insurance:MEDICAIDPol BRENNEMANDOB: [facility] icy Number: [id number] Hospital [id number] Repository Date:2018-04-13 04/13/2018 Tertiary NOT GIVENUNK [place] Insurance:SELF PAY [facility] Number: Effective Repository Date:2018-04-13 04/11/2018 DEBBY L Primary DEBBY L [place] [id number] Insurance:MEDICARE BRENNEMANDOB: Community [facility] PART A [facility] [id number] Community Hospital, [place] Number: Repository [address]Xkz: 330 [id number] [phone] (HP) Date:2018-04-11 04/11/2018 Secondary DEBBY L Y[place] Insurance:MEDICAIDPol BRENNEMANDOB: Community icy Number: [id number] Hospital [id number] Repository Date:2018-04-11 04/11/2018 Tertiary NOT GIVENUNK [place] Insurance:SELF PAY [facility] Number: Effective Repository Date:2018-04-11 04/11/2018 DEBBY L Primary DEBBY L [place] [id number] Insurance:MEDICARE BRENNEMANDOB: [facility] PART A [facility] [id number] Park [facility] [place] Number: Repository [address]Rdx: 330 [id number] [phone] (HP) Date:2018-04-11 04/11/2018 Secondary DEBBY L [place] Insurance:MEDICAIDPol BRENNEMANDOB: [facility] icy Number: [id number] Hospital [id number] Repository Date:2018-04-11 04/11/2018 Tertiary NOT GIVENUNK [place] Insurance:SELF PAY [facility] Number: Effective Repository Date:2018-04-11 04/11/2018 DEBBY L Primary DEBBY L [place] [id number] Insurance:MEDICARE BRENNEMANDOB: [facility] PART A [facility] [id number] Community Hospital, [place] Number: Repository [address]Hok: 330 [id number] [phone] (HP) Date:2018-04-11 04/11/2018 Secondary DEBBY L [place] Insurance:MEDICAIDPol BRENNEMANDOB: [facility] icy Number: [id number] Hospital [id number] Repository Date:2018-04-11 04/11/2018 Tertiary NOT GIVENUNK [place] Insurance:SELF PAY [facility] Hospital Number: Effective Repository Date:2018-04-11 04/09/2018 DEBBY L Primary DEBBY L [place] [id number] Insurance:MEDICARE BRENNEMANDOB: [facility] [id number] Community Hospital, [place] Number: Repository [address]Jbw: 330 [id number] [phone] (HP) Date:2018-04-09 04/09/2018 Secondary DEBBY L [place] Insurance:MEDICAIDPol BRENNEMANDOB: [facility] icy Number: [id number] Hospital [id number] Repository Date:2018-04-09 04/09/2018 Tertiary NOT GIVENUNK [place] Insurance:SELF PAY [facility] Number: Effective Repository Date:2018-04-09 03/23/2018 DEBBY Alvarenga Primary DEBBY Green [id number] Insurance:MEDICARE BRENNEMANDOB: [facility] [id number] Park Hospital [place] Number: Repository [address]Mxd: 330 [id number] [phone] (HP) Date:2018-03-19 03/23/2018 Secondary DEBBY L [place] Insurance:MEDICAIDPol BRENNEMANDOB: [facility] icy Number: [id number] Hospital [id number] Repository Date:2018-03-19 03/23/2018 Tertiary NOT GIVENUNK [place] Insurance:SELF PAY [facility] Number: Effective Repository Date:2018-03-19 03/22/2018 DEBBY L Primary DEBBY L [place] [id number] Insurance:MEDICARE BRENNEMANDOB: [facility] [id number] Park Hospital [place] Number: Repository [address]Pot: 330 [id number] [phone] (HP) Date:2018-03-22 03/22/2018 Secondary DEBBY L [place] Insurance:MEDICAIDPol BRENNEMANDOB: [facility] icy Number: [id number] Hospital [id number] Repository Date:2018-03-22 03/22/2018 Tertiary NOT GIVENUNK [place] Insurance:SELF PAY [facility] Number: Effective Repository Date:2018-03-22 03/19/2018 DEBBY L Primary DEBBY L [place] [id number] Insurance:MEDICARE BRENNEMANDOB: [facility] [id number] Community Hospital, [place] Number: Repository [address]Okx: 330 [id number] [phone] (HP) Date:2018-03-19 03/19/2018 Secondary DEBBY L [place] Insurance:MEDICAIDPol BRENNEMANDOB: Community icy Number: [id number] Hospital [id number] Repository Date:2018-03-19 03/19/2018 Tertiary NOT GIVENUNK [place] Insurance:SELF PAY [facility] Number: Effective Repository Date:2018-03-19 03/14/2018 DEBBY Alvarenga Primary DEBBY Green [id number] Insurance:MEDICARE BRENNEMANDOB: Community [facility] PART A [facility] [id number] Park Hospital [place] Number: Repository [address]Nhd: 330 [id number] [phone] (HP) Date:2018-03-14 03/14/2018 Secondary DEBBY L [place] Insurance:MEDICAIDPol BRENNEMANDOB: Community icy Number: [id number] Hospital [id number] Repository Date:2018-03-14 03/14/2018 Tertiary NOT GIVENUNK [place] Insurance:SELF PAY [facility] Number: Effective Repository Date:2018-03-14 03/06/2018 DEBBY L Primary DEBBY L [place] [id number] Insurance:MEDICARE BRENNEMANDOB: Community [facility] PART A [facility] [id number] Park Hospital [place] Number: Repository [address]Yeq: 330 [id number] [phone] (HP) Date:2018-03-06 03/06/2018 Secondary DEBBY L [place] Insurance:MEDICAIDPol BRENNEMANDOB: [facility] icy Number: [id number] Hospital [id number] Repository Date:2018-03-06 03/06/2018 Tertiary NOT GIVENUNK [place] Insurance:SELF PAY [facility] Number: Effective Repository Date:2018-03-06 03/03/2018 DEBBY L Primary DEBBY L [place] [id number] Insurance:MEDICARE BRENNEMANDOB: Community [facility] PART A [facility] [id number] Community Hospital, [place] Number: Repository [address]Ewk: 330 [id number] [phone] (HP) Date:2018-03-03 03/03/2018 Secondary DEBBY L [place] Insurance:MEDICAIDPol BRENNEMANDOB: Community icy Number: [id number] Hospital [id number] Repository Date:2018-03-03 03/03/2018 Tertiary NOT GIVENUNK [place] Insurance:SELF PAY [facility] Number: Effective Repository Date:2018-03-03 02/26/2018 [facility]OSPITALB: [facility] PART BPolicy Number: [id number] Repository [place] [id number] [place], [place] Date:2018-02-26 [place], [place] [address]Img: (113) [id number] [phone]: () Name:[facility] [id number] [facility] ()Tel: (000) [address] [address]Tbvayampe, [phone] (WP) [place] [address]ZJ: 02/26/2018 Secondary [facility] Insurance:MEDICAID OF BRENNEMANDOB: [facility] Number: [id number] Repository [id number] [place] Date:2018-02-26 [place], [place] [id number] [phone]: (330) Name:HUANG MYARNDA [place] [phone] [address]25[address]Bgafad[place], [place] ()Tel: (000) [phone]: (WP) [phone] 02/25/2018 DEBBY L Primary DEBBY L [place] [id number] Insurance:MEDICARE BREDIGNITY HE[facility] CENTERDOB: [facility] PART A BPolicy [id number] [place] Number: Repository [address]Ctp: 330 [id number] () Date:2018-02-25 02/25/2018 Secondary DEBBY L [place] Insurance:MEDICAIDPol [facility] Number: [id number] Hospital [id number] Repository Date:2018-02-25 02/25/2018 Tertiary NOT GIVENUNK [place] Insurance:SELF PAY [facility] Number: Effective Repository Date:2018-02-25 02/23/2018 DEBBY L Primary DEBBY L [place] [id number] Insurance:MEDICARE BRENNEMANDOB: [facility] [id number] Community Hospital, [place] Number: Repository [address]Nfl: 330 [id number] [phone] (HP) Date:2016-03-29 02/23/2018 Secondary DEBBY L [place] Insurance:MEDICAIDPol BRENNEMANDOB: [facility] icy Number: [id number] Hospital [id number] Repository Date:2018-01-27 02/23/2018 Tertiary NOT GIVENUNK [place] Insurance:SELF PAY [facility] Number: Effective Repository Date:2018-01-31 02/16/2018 DEBBY L Primary DEBBY L [place] [id number] Insurance:MEDICARE BRENNEMANDOB: [facility] PART A [facility] [id number] Community Hospital, [place] Number: Repository [address]Mwv: 330 [id number] [phone] (HP) Date:2018-02-16 02/16/2018 Secondary DEBBY L [place] Insurance:MEDICAIDPol BRENNEMANDOB: [facility] icy Number: [id number] Hospital [id number] Repository Date:2018-02-16 02/16/2018 Tertiary NOT GIVENUNK [place] Insurance:SELF PAY [facility] Number: Effective Repository Date:2018-02-16 02/14/2018 DEBBY L Primary DEBBY L [place] [id number] Insurance:MEDICARE BRENNEMANDOB: [facility] PART A [facility] [id number] Community Hospital, [place] Number: Repository [address]Gzt: 330 [id number] [phone] (HP) Date:2018-02-14 02/14/2018 Secondary DEBBY L [place] Insurance:MEDICAIDPol BRENNEMANDOB: [facility] icy Number: [id number] Hospital [id number] Repository Date:2018-02-14 02/14/2018 Tertiary NOT GIVENUNK [place] Insurance:SELF PAY [facility] Number: Effective Repository Date:2018-02-14 01/30/2018 DEBBY L Primary DEBBY L [place] [id number] Insurance:MEDICARE BRENNEMANDOB: [facility] [id number] [place], [place] Number: Repository [address]Bvx: 330 [id number] [phone] (HP) Date:2018-01-23 01/30/2018 Secondary DEBBY L [place] Insurance:MEDICAIDPol BRENNEMANDOB: Community icy Number: [id number] Hospital [id number] Repository Date:2018-01-23 01/30/2018 Tertiary NOT GIVENUNK [place] Insurance:SELF PAY [facility] Number: Effective Repository Date:2018-01-30 01/30/2018 DEBBY L Primary DEBBY L [place] [id number] Insurance:MEDICARE BRENNEMANDOB: [facility] PART A [facility] [id number] Community Hospital, [place] Number: Repository [address]Bop: 330 [id number] [phone] (HP) Date:2018-01-30 01/30/2018 Secondary DEBBY L [place] Insurance:MEDICAIDPol BRENNEMANDOB: [facility] icy Number: [id number] Hospital [id number] Repository Date:2018-01-30 01/30/2018 Tertiary NOT GIVENUNK [place] Insurance:SELF PAY [facility] Number: Effective Repository Date:2018-01-30 01/23/2018 DEBBY L Primary DEBBY L [place] [id number] Insurance:MEDICARE BRENNEMANDOB: [facility] [id number] Park Hospital [place] Number: Repository [address]Cof: 330 [id number] [phone] (HP) Date:2018-01-23 01/23/2018 Secondary DEBBY L [place] Insurance:MEDICAIDPol BRENNEMANDOB: [facility] icy Number: [id number] Hospital [id number] Repository Date:2018-01-23 01/23/2018 Tertiary NOT GIVENUNK [place] Insurance:SELF PAY [facility] Number: Effective Repository Date:2018-01-23 01/23/2018 DEBBY L Primary DEBBY L [place] [id number] Insurance:MEDICARE BRENNEMANDOB: [facility] PART A [facility] [id number] Community Hospital, [place] Number: Repository [address]Qoa: 330 [id number] [phone] () Date:2018-01-18 01/23/2018 Secondary DEBBY L [place] Insurance:MEDICAIDPol BRENNEMANDOB: [facility] icy Number: [id number] Hospital [id number] Repository Date:2018-01-18 01/23/2018 Tertiary NOT GIVENUNK [place] Insurance:SELF PAY [facility] Number: Effective Repository Date:2018-01-23 01/21/2018 DEBBY L Primary DEBBY L [place] [id number] Insurance:MEDICARE BRENNEMANDOB: [facility] PART A [facility] [id number] Community Hospital, [place] Number: Repository [address]Xgz: 330 [id number] [phone] () Date:2018-01-21 01/21/2018 Secondary DEBBY L [place] Insurance:MEDICAIDPol BRENNEMANDOB: [facility] icy Number: [id number] Hospital [id number] Repository Date:2018-01-21 01/21/2018 Tertiary NOT GIVENUNK [place] Insurance:SELF PAY [facility] Number: Effective Repository Date:2018-01-21 01/18/2018 DEBBY L Primary DEBBY L [place] [id number] Insurance:MEDICARE BRENNEMANDOB: [facility] PART A [facility] [id number] Community Hospital, [place] Number: Repository [address]Pee: 330 [id number] [phone] () Date:2018-01-04 01/18/2018 Secondary DEBBY L [place] Insurance:MEDICAIDPol BRENNEMANDOB: [facility] icy Number: [id number] Hospital [id number] Repository Date:2018-01-04 01/18/2018 Tertiary NOT GIVENUNK [place] Insurance:SELF PAY [facility] Number: Effective Repository Date:2018-01-04 01/02/2018 DEBBY L Primary DEBBY L [facility] BRENNEMANDOB: Insurance:MEDICARE A BREDIGNITY HE[facility] CENTERDOB: [facility] AND BPolicy Number: [id number] [facility] [id number] [place], [place] Date: [address]Qpz: () 01/02/2018 Secondary DEBBY L [facility] Insurance:[facility]: [facility] System MEDICAIDPolicy [id number] Repository Number: [id number] Date: 12/26/2017 DEBBY L Primary DEBBY L [facility] BRENNEMANDOB: Insurance:MEDICARE A [facility] HOSPITALB: [facility] AND olicy Number: [id number] [facility] [id number], [place] Date: [address]Uxn: () 12/26/2017 Secondary DEBBY L [facility] Insurance:[facility]: Health System MEDICAIDPolicy [id number] Repository Number: [id number] Date: 12/24/2017 DEBBY L Primary DEBBY L [place] [id number] Insurance:MEDICARE BRENNFORT [facility]AMIL[facility] HOSPITALDOB: [facility] PART A [facility] [id number] Number: Repository [address]Udz: 330 [id number] [phone] () Date:2017-12-24 12/24/2017 Secondary DEBBY L [place] Insurance:[facility]IDAugust[facility] Medical CenterD[facility]: [facility] Number: [id number] Hospital [id number] Repository Date:2017-12-24 12/24/2017 Tertiary NOT GIVENUNK [place] Insurance:SELF PAY [facility] Number: Effective Repository Date:2017-12-24 12/20/2017 DEBBY L Primary DEBBY L [place] [id number] Insurance:MEDICARE [facility] CENTERDOB: [facility] PART [facility] [id number] Number: Repository [address]Upi: [phone] [id number] [phone] (HP) Date:2017-12-20 12/20/2017 Secondary DEBBY L Yong Insurance:MEDICAIDPol BRENNEMANDOB: [facility] icy Number: [id number] [id number] Repository Date:2017-12-20 12/20/2017 Tertiary NOT GIVENUNK [place] Insurance:SELF PAY [facility] Number: Effective Repository Date:2017-12-20 12/17/2017 DEBBY L Primary DEBBY L [place] [id number] Insurance:MEDICARE BRENNEMANDOB: [facility] [id number] Number: Repository [id number]: [phone] [id number] [phone] (HP) Date:2017-12-17 12/17/2017 Secondary DEBBY L Yong Insurance:MEDICAIDPol BRENNEMANDOB: [facility] icy Number: [id number] [id number] Repository Date:2017-12-17 12/17/2017 Tertiary NOT GIVENUNK Yong Insurance:SELF PAY [facility] Number: Effective Repository Date:2017-12-17 12/16/2017 DEBBY L Primary DEBBY L Yong [id number] Insurance:MEDICARE BRENNEMANDOB: [facility] PART A [facility] [id number] [place], [place] Number: Repository [address]Qra: 330 [id number] [phone] (HP) Date:2017-12-16 12/16/2017 Secondary DEBBY L [place] Insurance:MEDICAIDPol BRENNEMANDOB: [facility] icy Number: [id number] Hospital [id number] Repository Date:2017-12-16 12/16/2017 Tertiary NOT GIVENUNK [place] Insurance:SELF PAY [facility] Number: Effective Repository Date:2017-12-16 12/11/2017 DEBBY L Primary DEBBY L [facility] BRENNEMANDOB: Insurance:MEDICARE A BRENNEMANDOB: Health System AND BPolicy Number: [id number] [id number] [place] Date: [address]Wcy: () 12/11/2017 Secondary DEBBY L [facility] Insurance:[facility] MEDICAIDPolicy [id number] Repository Number: [id number] Date: 12/01/2017 DEBBY L Primary DEBBY L [facility] BRENNEMANDOB: Insurance:MEDICARE A [facility]DOB: Health System AND BPolicy Number: [id number] Repository [place] [id number] [place], [place] Date: [address]Xmv: () 12/01/2017 Secondary DEBBY L [facility]: Health System MEDICAIDPolicy [id number] Repository Number: [id number] Date: 11/07/2017 DEBBY L Primary DEBBY L Yong [id number] Insurance:MEDICARE BRENNEMANDOB: [facility] A [facility] [id number] [place], [place] Number: Repository [address]Fet: [id number] [phone] Date:2017-11-07 () 11/07/2017 Secondary DEBBY L Yong Insurance:MEDICAIDPol BRENNEMANDOB: [facility] icy Number: [id number] [facility] [id number] Repository Date:2017-11-07 11/07/2017 Tertiary NOT GIVENUNK [place] Insurance:SELF PAY [facility] Hospital Number: Effective Repository Date:2017-11-07 11/07/2017 DEBBY Primary DEBBY L [facility] BRENNEMANDOB: Insurance:MEDICAREPol [facility]: [facility] icy Number: [id number] Repository [place] [id number] [facility], Date: [place], [place] [address]Twp: [place] [address] () 11/07/2017 Secondary DEBBY [facility] Insurance:[facility]: Hospital MEDICAIDPolicy [id number] Repository Number: [place] [id number] [facility], [place]: [place] [address] 10/17/2017 DEBBY L Primary DEBBY L [facility] BRENNEMANDOB: Insurance:MEDICARE A [facility]EDIGN[facility]ENTERDOB: [facility] AND [facility] Number: [id number] [facility] [id number] [place], [place] Date: [address]Icq: () 10/17/2017 Secondary DEBBY L [facility] Insurance:[place] BRENNEMANDOB: [facility] [id number] Repository Number: [id number] Date: 10/14/2017 Debby L Primary DEBBY L [place] [id number] Insurance:MEDICARE [facility]NF[facility]ITALD[facility]: [facility] [id number] Number: Repository [address]Dsc: [id number] [phone] Date:2017-10-14 () 10/14/2017 Secondary DEBBY L Yong Insurance:MEDICAIDPol BRENNMERCY HE[facility] ST[facility]INCENT MEDICAL CENTERB: [facility] Number: [id number] Hospital [id number] Repository Date:2017-10-14 10/14/2017 Tertiary NOT GIVENUNK [place] Insurance:SELF PAY [facility] Number: Effective Repository Date:2017-10-14 09/15/2017 Debby L Primary DEBBY L Yong [id number] Insurance:MEDICARE [facility]NFORT [facility]IL[facility] HOSPITALDOB: [facility] [id number] [place], [place] Number: Repository [address]Hjb: [id number] [phone] Date:2017-09-15 () 09/15/2017 Secondary DEBBY L Yong Insurance:MEDICAIDPol BRENNEMANDOB: [facility] ic Number: [id number] Hospital [id number] Repository Date:2017-09-15 09/15/2017 Tertiary NOT GIVENUNK [place] Insurance:SELF PAY [facility] Number: Effective Repository Date:2017-09-15 08/22/2017 Debby L Primary DEBBY L [place] [id number] Insurance:MEDICARE BRENNEMANDOB: Community [facility] PART A [facility] [id number] Number: Repository [address]Ihi: 330 [id number] [phone] (HP) Date:2017-08-22 08/22/2017 Secondary DEBBY L Yong Insurance:MEDICAIDPol BRENNEMANDOB: [facility] icy Number: [id number] Hospital [id number] Repository Date:2017-08-22 08/22/2017 Tertiary NOT GIVENUNK [place] Insurance:SELF PAY [facility] Number: Effective Repository Date:2017-08-22 07/25/2017 Debby L Primary DEBBY L Yong [id number] Insurance:MEDICARE BRENNEMANDOB: [facility] [id number], [place] Number: Repository [address]Oqa: 330 [id number] [phone] () Date:2017-07-25 07/25/2017 Secondary DEBBY L Yong Insurance:MEDICAIDPol BRENNEMANDOB: [facility] ic Number: [id number] Hospital [id number] Repository Date:2017-07-25 07/25/2017 Tertiary NOT GIVENUNK [place] Insurance:SELF PAY [facility] Number: Effective Repository Date:2017-07-25 07/22/2017 Debby L Primary DEBBY L [place] [id number] Insurance:MEDICARE BRENNEMANDOB: [facility] [id number] Number: Repository [address]Wrn: 330 [id number] [phone] (HP) Date:2017-07-22 07/22/2017 Secondary DEBBY L Yong Insurance:MEDICAIDPol BRENNEMANDOB: [facility] icy Number: [id number] Hospital [id number] Repository Date:2017-07-22 07/22/2017 Tertiary NOT GIVENUNK [place] Insurance:SELF PAY [facility] Number: Effective Repository Date:2017-07-22 07/18/2017 Debby L Primary DEBBY L Yong [id number] Insurance:MEDICARE BRENNEMANDOB: [facility] [id number] [place], [place] Number: Repository [address]Inn: 330 [id number] [phone] () Date:2017-07-18 07/18/2017 Secondary DEBBY L [place] Insurance:MEDICAIDPol BRENNEMANDOB: [facility] icy Number: [id number] Hospital [id number] Repository Date:2017-07-18 07/18/2017 Tertiary NOT GIVENUNK [place] Insurance:SELF PAY [facility] Number: Effective Repository Date:2017-07-18 07/18/2017 Debby L Primary DEBBY L [place] [id number] Insurance:MEDICARE BRENNEMANDOB: [facility] [id number] Number: Repository [address]Dda: 330 [id number] [phone] () Date:2017-06-27 07/18/2017 Secondary DEBBY L [place] Insurance:MEDICAIDPol BRENNEMANDOB: [facility] icy Number: [id number] Hospital [id number] Repository Date:2017-06-27 07/18/2017 Tertiary NOT GIVENUNK [place] Insurance:SELF PAY [facility] Number: Effective Repository Date:2017-06-27 07/18/2017 Debby L Primary DEBBY L Yong [id number] Insurance:MEDICARE BRENNEMANDOB: [facility] [id number] Number: Repository [address]Mfs: 330 [id number] [phone] () Date:2017-07-18 07/18/2017 Secondary DEBBY L Yong Insurance:MEDICAIDPol BRENNEMANDOB: [facility] icy Number: [id number] Hospital [id number] Repository Date:2017-07-18 07/18/2017 Tertiary NOT GIVENUNK [place] Insurance:SELF PAY [facility] Hospital Number: Effective Repository Date:2017-07-18 06/28/2017 Debby L Primary DEBBY L [place] [id number] Insurance:MEDICARE BRENNEMANDOB: [facility] [place] PART A [facility] [id number] [place] Number: Repository [address]Euk: [phone] [id number] [phone] (HP) Date:2017-06-27 06/28/2017 Secondary DEBBY L Yong Insurance:MEDICAIDPol BRENNEMANDOB: Community icy Number: [id number] Hospital [id number] Repository Date:2017-06-27 06/28/2017 Tertiary NOT GIVENUNK [place] Insurance:SELF PAY [facility] Number: Effective Repository Date:2017-06-27 06/28/2017 Debby L Primary DEBBY L [place] [id number] Insurance:MEDICARE BRENNEMANDOB: [facility] PART A [facility] [id number] [place] Number: Repository [address]Ysw: [phone] [id number] [phone] (HP) Date:2017-06-27 06/28/2017 Secondary DEBBY L Yong Insurance:MEDICAIDPol BRENNEMANDOB: Community icy Number: [id number] Hospital [id number] Repository Date:2017-06-27 06/28/2017 Tertiary NOT GIVENUNK [place] Insurance:SELF PAY [facility] Number: Effective Repository Date:2017-06-28 06/28/2017 Debby L Primary DEBBY L [place] [id number] Insurance:MEDICARE BRENNEMANDOB: [facility] PART A [facility] [id number] [facility] Number[place] Repository [address]Xmi: [phone] [id number] [phone] (HP) Date:2017-06-27 06/28/2017 Secondary DEBBY L [place] Insurance:MEDICAIDPol BRENNEMANDOB: Community icy Number: [id number] Hospital [id number] Repository Date:2017-06-27 06/28/2017 Tertiary NOT GIVENUNK [place] Insurance:SELF PAY [facility] Number: Effective Repository Date:2017-06-28
== END 2018-04-24 17:08 | disposition home or self-care (01) ==
PROVIDERS: Emergency Provider Emergency Medicine; Family Provider Family Medicine; PCP Family Medicine
DX: L60.0 Ingrowing nail (principal); Q05.9 Spina bifida, unspecified
CPT/HCPCS: 99283

== ENCOUNTER 2018-05-11 11:25 | Emergency (ER) | payer MEDICARE, MEDICAID, SELFPAY ==
[2018-05-11 11:26] VITALS: BP 150/87; PULSE 83; RESP 18; TEMP 37; O2SAT 97; BMI 42.6
--- NOTE | 2018-05-11 11:41 | ED.DCSUM_ITS ---
- ER Visit Summary Date of Service: 05/11/18 Chief Complaint: Dysuria History of Present Illness: The patient is a 37 F who presents with dysuria. It started yesterday. Patient had a recent GI illness and was having a lot of diarrhea. After that she started having urinary symptoms. She states she has had numerous UTIs and bladder infections in the past. She is a diabetic and her blood sugars have been elevated. Her BG T this morning was 350 Physical Examination: Vital signs reviewed. HEENT exam unremarkable. Heart is regular rate and rhythm without murmurs. Lungs are clear to auscultation. Abdomen is soft and nontender. Extremities reveal no edema. Skin exam normal. Neurologic exam normal. Test Results: Urinalysis negative for infection. HCG negative Emergency Department Course and Treatment: Patient then said she had a headache so she was given Toradol and Phenergan IM. She feels better. No evidence of infection. Patient will monitor her blood sugars at home and will follow up with her PCP Treatment Plan: [] Disposition: Discharge Impression: Dysuria, headache This note was generated with [employer] dictation software. It may contain incorrect words, spelling, and punctuation that were not noted in review of the chart prior to signing ED Disposition - Plan for ED Patient: Chief Complaint: Complaint Referrals: Will Shukla MD [Primary Care Provider] -
[2018-05-11 11:56] LABS: Bacteria 0 SEEN /hpf (None Seen); Mucous, Urine 0 SEEN /hpf (<or=2+); Red Blood Cells-Urine 0 SEEN /hpf (0-5); Squamous Epithelial Cells - UA 0 SEEN /hpf (5-10)
[2018-05-11] MEDS: proMETHazine 25 MG/ML Syringe IM (11:59)
[2018-05-11] MEDS: Ketorolac 60 MG/2 ML Vial IM (11:59)
[2018-05-11 12:00] LABS: Color, Urine Yellow (Yellow); Glucose, Dipstick 250 mg/dl (Normal); Ketone-Dipstick Negative (Negative); Leukocyte Esterase-Dipstick Negative /ul (Negative); Nitrite-Dipstick Negative (Negative); Occult Blood-Urine Negative /ul (Negative); Protein-Dipstick Negative (Negative); Specific Gravity, Urine 1.015 (1.002-1.030); Urine Bilirubin Dipstick Negative (Negative); Urine Clarity Clear (Clear); Urine Urobilinogen Normal (Normal); Urine pH 6.5 (5.0 - 8.0)
[2018-05-11 12:01] LABS: Internal QC Validated? YES +Cl - CLEAR BKGD; Pregnancy, Urine Negative Negative
[2018-05-11 12:12] LABS: White Blood Cells 0-5 SEEN /hpf (0-5)
--- NOTE | 2018-05-11 12:18 | ED.DEP ---
ED Disposition - Plan for ED Patient: Disposition: Home or Assisted Living Chief Complaint: Complaint Instructions: ED Dysuria Uncertain Cause Referrals: Will Shukla MD [Primary Care Provider] -
[2018-05-11 12:20] VITALS: BP 125/61; PULSE 73; RESP 14; O2SAT 97
--- OUTSIDE RECORDS SUMMARY | 2018-06-27 05:13 | XMS RPT_ITS ---
:1980 Author Organization OHIP Support Name Relationship Address Phone MEHDI BAILON Unavailable [address] + [place] [address] D Unavailable Unavailable Unavailable LEONEL WOLFELLE Unavailable [address] + [place] [address] UVALDO, MEHDI Unavailable [address] + [place] [address] D Unavailable Unavailable Unavailable LINNERLEONELBENJIE Unavailable [address] + [place] [address] UVALDO MEHDI Unavailable Unavailable + UVALDO MEHDI Unavailable Unavailable + UVALDO MEHDI Unavailable [address] + [place] [address] D Unavailable Unavailable Unavailable GRASER, BENJIE Unavailable [address] + [place] [address] UVALDO, MEHDI Unavailable [address] + [place] [address] D Unavailable Unavailable Unavailable LINNER BENJIE Unavailable [address] + [place] [address] UVALDO, MEHDI Unavailable [address] + [place] [address] D Unavailable Unavailable Unavailable GRASER BENJIE Unavailable [address] + [place] [address] UVALDO MEHDI Unavailable [address] + [place] [address] D Unavailable Unavailable Unavailable GRASERLEONELBENJIE Unavailable [address] + [place] [address] UVALDO MEHDI Unavailable [address] + [place] [address] D Unavailable Unavailable Unavailable LUCIANO BENJIE Unavailable [address] + [place] [address] UVALDO, MEHDI Unavailable [address] + [place] [address] D Unavailable Unavailable Unavailable LUCIANO BENJIE Unavailable [address] + [place] [address] UVALDO, MEHDI Unavailable [address] + [place] [address] D Unavailable Unavailable Unavailable LUCIANO BENJIE Unavailable [address] + [place] [address] UVALDO, MEHDI Unavailable [address] + [place] [address] D Unavailable Unavailable Unavailable BENJIE WOLF Unavailable [address] + [place] [address] UVALDO, MEHDI Unavailable [address] + [place] [address] D Unavailable Unavailable Unavailable BENJIE WOLF Unavailable [address] + [place] [address] UVALDO, MEHDI Unavailable [address] + [place] [address] D Unavailable Unavailable Unavailable BENJIE WOLF Unavailable [address] + [place] [address] UVALDO, MEHDI Unavailable [address] + [place] [address] D Unavailable Unavailable Unavailable BENJIE WOLF Unavailable [address] + [place] [address] UVALDO, MEHDI Unavailable [address] + [place] [address] D Unavailable Unavailable Unavailable BENJIE WOLF Unavailable [address] + [place] [address] UVALDO, MEHDI Unavailable [address] + [place] [address] D Unavailable Unavailable Unavailable BENJIE WOLF Unavailable [address] + [place] [address] UVALDO, MEHDI Unavailable [address] + [place] [address] D Unavailable Unavailable Unavailable GRASERBENJIE Unavailable [address] + [place] [address] UVALDO, MEHDI Unavailable [address] + [place] [address] D Unavailable Unavailable Unavailable GRASERLEONELBENJIE Unavailable [address] + [place] [address] UVALDO, MEHDI Unavailable Unavailable + UVALDO, MEHDI Unavailable Unavailable + UVALDO, MEHDI Unavailable [address] + [place] [address] D Unavailable Unavailable Unavailable GRASERBENJIE Unavailable [address] + [place] [address] UVALDO, MEHDI Unavailable [address] + [place] [address] D Unavailable Unavailable Unavailable GRASERBENJIE Unavailable [address] + [place] [address] UVALDO, MEHDI Unavailable [address] + [place] [address] D Unavailable Unavailable Unavailable GRASERLEONELBENJIE Unavailable [address] + [place] [address] UVALDO, MEHDI Unavailable [address] + [place] [address] D Unavailable Unavailable Unavailable UVALDO, MEHDI Unavailable [address] + [place] [address] D Unavailable Unavailable Unavailable UVALDO, MEHDI Unavailable [address] + [place] [address] D Unavailable Unavailable Unavailable UVALDO, MEHDI Unavailable [address] + [place] [address] D Unavailable Unavailable Unavailable UVALDO, MEHDI Unavailable [address] + [place] [address] D Unavailable Unavailable Unavailable UVALDO, MEHDI Unavailable [address] + [place] [address] D Unavailable Unavailable Unavailable UVALDO, MEHDI Unavailable [address] + [place] [address] D Unavailable Unavailable Unavailable D Unavailable Unavailable Unavailable UVALDO, MEHDI Unavailable [address] + [place] [address] D Unavailable Unavailable Unavailable GODOY, ELIZABETH Unavailable [address] + [place] [address] UVALDO, MEHDI Unavailable [address] + [place] [address] D Unavailable Unavailable Unavailable GODOY, ELIZABETH Unavailable [address] + [place] [address] UVALDO, MEHDI Unavailable [address] + [place] [address] D Unavailable Unavailable Unavailable GODOY, ELIZABETH Unavailable [address] + [place] [address] UVALDO, MEHDI Unavailable [address] + [place] [address] D Unavailable Unavailable Unavailable GODOY, ELIZABETH Unavailable [address] + [place] [address] UVALDO, MEHDI Unavailable [address] + [place] [address] D Unavailable Unavailable Unavailable GODOY, ELIZABETH Unavailable [address] + [place] [address] UVALDO, MEHDI Unavailable [address] + [place] [address] UVALDO, MEHDI Unavailable [address] + [place] [address] D Unavailable Unavailable Unavailable GODOY, ELIZABETH Unavailable [address] + [place] [address] UVALDO, MEHDI Unavailable [address] + [place] [address] D Unavailable Unavailable Unavailable GODOY, ELIZABETH Unavailable [address] + [place] [address] UVALDO, MEHDI Unavailable [address] + [place] [address] D Unavailable Unavailable Unavailable GODOY, ELIZABETH Unavailable [address] + [place] [address] UVALDO, MEHDI Unavailable [address] + [place] [address] D Unavailable Unavailable Unavailable GODOY, ELIZABETH Unavailable [address] + [place] [address] UVALDO, MEHDI Unavailable [address] + [place] [address] D Unavailable Unavailable Unavailable WALT, ELIZABETH Unavailable [address] + [place] [address] UVALDO, MEHDI Unavailable [address] + [place] [address] D Unavailable Unavailable Unavailable WALT ELIZABETH Unavailable [address] + [place] [address] UVALDO, MEHDI Unavailable [address] + [place] [address] D Unavailable Unavailable Unavailable WALT ELIZABETH Unavailable [address] + [place] [address] UVALDO, MEHDI Unavailable [address] + [place] [address] D Unavailable Unavailable Unavailable WALT ELIZABETH Unavailable [address] + [place] [address] UVALDO, MEHDI Unavailable [address] + [place] [address] D Unavailable Unavailable Unavailable GODOY, ELIZABETH Unavailable [address] + [place] [address] UVALDO, MEHDI Unavailable [address] + [place] [address] D Unavailable Unavailable Unavailable GODOY, ELIZABETH Unavailable [address] + [place] [address] UVALDO, MEHDI Unavailable [address] + [place] [address] D Unavailable Unavailable Unavailable ELIZABETH GODOY Unavailable [address] [phone] [place] [address] Care Team Providers Name Role Phone Will Dietz Attending Unavailable Mirela, Will Primary Care Unavailable Mirela, Will Attending Unavailable Mirela, Will Referring Unavailable Mirela, Will Primary Care Unavailable Mirela, Will Primary Care Unavailable Celine Caputo Attending Unavailable Mirela, Will Primary Care Unavailable Deal, Dre Attending Unavailable Mirela, Will Primary Care Unavailable Terrence Ramon Attending Unavailable Mirela, Will Primary Care Unavailable Jayson Yost Attending Unavailable Mirela, Will Primary Care Unavailable Will Barcenas Attending Unavailable Nemesio Barriga Attending Unavailable Mirela, Will Referring Unavailable Mirela, Will Primary Care Unavailable Bobby Lee Attending Unavailable Rojas Oates Attending Unavailable Mirela, Will Referring Unavailable Mirela Will Attending Unavailable Jayson Alvarez Referring Unavailable Mirela, Will Primary Care Unavailable Nemesio Sanderson Attending Unavailable Mirela, Will Primary Care Unavailable Arnold Caban Attending Unavailable Mee Arnold Referring Unavailable Mirela, Will Primary Care [...] Unavailable Mirela, Will Primary Care Unavailable Nemesio Por Attending Unavailable Nemesio Josue Attending Unavailable Mirela, Will Referring Unavailable Mirela, Will Primary Care Unavailable Nemesio Josue Attending Unavailable Mirela, Will Primary Care Unavailable Joselo Nemesio Referring Unavailable Mirela, Will Primary Care Unavailable [...] Attending Unavailable Mirela, Will Primary Care Unavailable Dre Deal Attending Unavailable Mirela, Will Primary Care Unavailable Arnold Caban Attending Unavailable Mirela, Will Primary Care Unavailable Oni Dunlap Attending Unavailable Mirela, Will Primary Care Unavailable Kristen Ohara Attending Unavailable Mirela, Will Primary Care Unavailable SouthernKristen Attending Unavailable Celine Fung Attending Unavailable FungCeline Referring Unavailable Mirela, Will Primary Care Unavailable Mirela, Will Primary Care Unavailable SouthernKristen Attending Unavailable Mirela, Will Primary Care Unavailable Paintsil, [place] Admitting Unavailable Reymundo Encarnacion Attending Unavailable Herbert Reza Consulting Unavailable Paintsil, [place] Admitting Unavailable Mirela, Will Primary Care Unavailable Paintsil, [place] Consulting Unavailable Paintsil, [place] Attending Unavailable Paintsil, [place] Admitting Unavailable Reymundo Encarnacion Attending Unavailable Mirela, Will Primary Care Unavailable Herbert Reza Consulting Unavailable Reymundo Encarnacion Consulting Unavailable Mirela, Will Primary Care Unavailable Nemesio Pro Attending Unavailable Mirela, Will Primary Care Unavailable Arnold Caban Attending Unavailable Mirela, Will Primary Care Unavailable Celine Boateng Attending Unavailable Mirela, Will Primary Care Unavailable Nemesio Sanderson Attending Unavailable MIRELAWILL Attending Unavailable MIRELA WILL A Referring Unavailable TESTRAKE, GAVIN Attending Unavailable MIRELA, WILL A Referring Unavailable TESTRAKE, GAVIN Referring Unavailable TESTRAKE, GAVIN Referring Unavailable MEGAN AMADOR (CN) Attending Unavailable MIRELA, WILL A Referring Unavailable MEGAN AMADOR (CNM) Referring Unavailable TESTRAKE, GAVIN Attending Unavailable TESTRAKE, GAVIN Referring Unavailable TESTRAKE, GAVIN Referring Unavailable TESTRAKE, GAVIN Referring Unavailable TESTRAKE, GAVIN Attending Unavailable TESTRAKE, GAVIN Referring Unavailable KEVIN OSORIO Attending Unavailable MEGAN AMADOR (CN) Referring Unavailable FAWN COYNE Attending Unavailable MARIANA CORDERO Referring Unavailable MIRELA, WILL A Referring Unavailable MIRELA, WILL A Attending Unavailable MIRELA, WILL A Referring Unavailable MIRELA, WILL A Referring Unavailable MIRELA, WILL A Referring Unavailable ABBE MILLAN (TRAIN EXAMINER) Attending Unavailable ABBE MILLAN (TRAIN EXAMINER) Attending Unavailable ABBE MILLAN (TRAIN EXAMINER) Referring Unavailable MIRELA, WILL A Referring Unavailable MIRELA, WILL A Attending Unavailable MIRELA, WILL A Referring Unavailable NETTA HIGGINS (SAVANA) Attending Unavailable MIRELA, WILL A Referring Unavailable [...] Referring Unavailable MIRELA, WILL A Referring Unavailable ALI, NOAMAN Attending Unavailable FAWN COYNE Referring Unavailable ALI, NOAMAN Referring Unavailable ALI, NOAMAN Admitting Unavailable ALI, NOAMAN Attending Unavailable ALI, NOAMAN Referring Unavailable ANNAMARIA PETERSEN Attending Unavailable ALI, NOAMAN Attending Unavailable REYMUNDO SERNA Attending Unavailable MIRELA, WILL A Referring Unavailable MIRELA, IWLL A Primary Care Unavailable ALI, NOAMAN S Attending Unavailable Fawn [...] Primary Care Unavailable ANNAMARIA PETERSEN Attending Unavailable JEZ NG MD Attending Unavailable PHYSICIAN, NONE Primary Care Unavailable DR. ELMIRA FOSS DO Attending Unavailable PHYSICIAN, NONE Primary Care Unavailable PROBLEMS PROBLEMS DATE TYPE CONDITION / CODE ATTENDING STATUS SOURCE 02/28/2018 Active Mixed hyperlipidemia NA Active [place] / E78.2(ICD-10) Clinic Main [place] Rep[facility] 01/01/2018 Active Other specified NA Active [place] diabetes mellitus [facility] Main with other diabetic [place] kidney complication Repository / E13.29(ICD-10) 01/01/2018 Active Other specified NA Active [place] diabetes mellitus Clinic Main with hyperglycemia / [place] E13.65(ICD-10) Repository 04/24/2018 Unknown L60.0 - Ingrowing Nemesio Sanderson Active [place] nail / L60.0(ICD-10) [facility] Repository 03/03/2018 Unknown E11.9 - Type 2 Deal, Dre Active [place] diabetes mellitus Community without Hospital complications / Repository E11.9(ICD-10) 03/03/2018 Unknown Q05.7 - Lumbar spina Deal, Dre Active [place] bifida without Community hydrocephalus / Hospital Q05.7(ICD-10) Repository 03/03/2018 Unknown S30.0XXA - Contusion Deal, Dre Active [place] of lower back and Community pelvis, initial Hospital encounter / Repository S30.0XXA(ICD-10) 04/17/2018 Unknown Q05.9 - Spina Fung, Active [place] bifida, unspecified [place] Community / Q05.9(ICD-10) Hospital Repository 01/23/2018 Unknown 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[place], 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 / Hospital E04.1(ICD-10) Repository 01/01/2018 Active Nontoxic single NA Active [place] thyroid nodule / Clinic Main E04.1(ICD-10) [place] Rep[facility] 12/26/2017 Active Contusion of PETERSEN, Active [place] abdominal wall, ANNAMARIA NAYELY Clinic Other initial encounter / [place] S30.1XXA(ICD-10) Repository 12/24/2017 Unknown R10.819 - Abdominal Cornici, Jayson Active [place] tenderness, Community unspecified site / Hospital R10.819(ICD-10) Repository 12/11/2017 Active Other specified ALI, NOAMAN Active [place] postprocedural Clinic Other states / [place] Z98.890(ICD-10) Repository 12/11/2017 Active Personal history of ALI, NOAMAN Active [place] other diseases of Clinic Other the digestive system [place] / Z87.19(ICD-10) Repository 05/04/2016 Active 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, not Clinic Main specified as acute [place] or chronic / Repository N12(ICD-10) 12/25/2013 Active Urinary tract NA Active [place] infection, site not Clinic Main specified / [place] N39.0(ICD-10) Repository 10/17/2017 Active Incisional hernia ANNE CHRISTENSEN Active [place] with obstruction, Clinic Other without gangrene / [place] K43.0(ICD-10) Repository 10/17/2017 Admitting Unknown / ANNE CHRISTENSEN S Active [facility] diagnosis UNK(Unknown) Health System Repository 10/18/2016 Active Type 2 diabetes NA Active [place] mellitus with other Clinic Main diabetic kidney [place] complication / Repository E11.29(ICD-10) 10/18/2016 Active Proteinuria, NA Active [place] unspecified / Clinic Main R80.9(ICD-10) [place] Repository 10/10/2017 Active Type 2 diabetes NA Active [place] mellitus without Clinic Main complications / [place] E11.9(ICD-10) Repository 08/04/2017 Active Type 2 diabetes NA Active [place] mellitus with other Clinic Main diabetic [place] neurological Repository complication / E11.49(ICD-10) 07/28/2017 Active Excessive and NA Active [place] frequent Clinic Main menstruation with [place] irregular cycle / Repository N92.1(ICD-10) 07/28/2017 Active Irregular NA Active [place] menstruation, Clinic Main unspecified / [place] N92.6(ICD-10) Repository 07/27/2017 Active Non-pressure chronic NA Active [place] ulcer of other part Clinic Main of left foot with [place] fat layer exposed / Repository L97.522(ICD-10) 07/27/2017 Active Unknown / TESTRAKE, Active [place] UNK(Unknown) GAVIN [facility] Main [place] Repository 08/11/2017 Unknown R07.89 - Other chest Mirela, Active [place] pain / [place] [facility] R07.89(ICD-10) Hospital Repository PROCEDURES PROCEDURES No Procedure Records FoundRESULTS RESULTS ALBUMIN/CREAT RATIO Collected: 06/18/2018 Status: F Source: [place] 9:40 AM [facility] REPOSITORY TYPE CODE TESTS RESULT OUT OF REFERENCE UNITS RANGE LAB UCRR 20-300 mg/dL Creatinine,Ur 59.2 ine,Ran LAB UALBR 0.0-23.0 mg/L High Albumin Urine 45.6 Random LAB UALBCR 0-30 mg/g High Albumin/Creat 77 Ratio Result Comment: 30 to 300 mg/g indicates an increased risk for diabetic nephropathy. Greater than 300 mg/g is consistent with clinical nephropathy. (Am J Kidney Disease 1994, 25:107) Performed By: #### UACR #### [facility] [address] [place], [place] [address] COMP METABOLIC PANEL Collected: 06/18/2018 Status: F Source: [place] 9:35 AM [facility] REPOSITORY TYPE CODE TESTS RESULT OUT OF REFERENCE UNITS RANGE LAB TP 6.3-8.0 g/dL Protein, Total 7.2 LAB ALB 3.9-4.9 g/dL Albumin 4.1 LAB CA 8.5-10.2 mg/dL Calcium, Total 9.6 LAB TBIL 0.2-1.3 mg/dL Bilirubin, Total 0.3 LAB ALKP 34-123 U/L Alkaline Phosphatase 75 LAB AST 13-35 U/L AST High 37 LAB GLU 74-99 mg/dL Glucose High 230 Result Comment: The [place] Diabetes Association (ADA) provides guidance for cutoff [...] Standards of Medical Care in Diabetes 2016, [place] Diabetes Association. Diabetes Care. 2016.39(Suppl 1). LAB BUN 7-21 mg/dL BUN 15 LAB CRET 0.58-0.96 mg/dL Creatinine 0.78 LAB NA 136-144 mmol/L Sodium 139 LAB K 3.7-5.1 mmol/L Potassium 4.0 LAB CL 97-105 mmol/L Chloride 101 LAB CO2 22-30 mmol/L CO2 24 LAB AGAP 9-18 mmol/L Anion Gap 14 LAB ALT 7-38 U/L ALT 34 LAB GFRAA eGFR- Amer. >60 LAB GFRNAA [...] reflect actual GFR. Performed By: #### CMP, LIPNF, HBA1C #### [facility] [address] [place], [place] [address] LIPID PANEL, NONFAST Collected: 06/18/2018 Status: F Source: [place] 9:35 AM [facility] REPOSITORY TYPE CODE TESTS RESULT OUT OF REFERENCE UNITS RANGE LAB CHOLNF <200 mg/dL Total Cholesterol NF 154 Result Comment: <200 mg/dL, Desirable 200-239 mg/dL, Borderline high >239 mg/dL, High LAB TRIGNF <150 mg/dL Triglycerides, NF 99 Result Comment: <150 mg/dL, Normal 150-199 mg/dL, Borderline high 200-499 mg/dL, High >499 mg/dL, Very high LAB HDLNF >39 mg/dL HDL Cholesterol, NF 40 Result Comment: 40-59 mg/dL, Acceptable >59 mg/dL, High: Negative risk factor for coronary heart disease <40 mg/dL, Low: Positive risk factor for coronary heart disease LAB LDLNF <100 mg/dL LDL Cholesterol, NF 94 Result Comment: <100 mg/dL, Optimal 100-129 mg/dL, Near optimal/above optimal 130-159 mg/dL, Borderline high 160-189 mg/dL, High >189 mg/dL, Very high Secondary prevention optimal LDL Cholesterol levels are recommended to be < 70 mg/dL LAB NOHDLN <130 mg/dL Non HDL Chol, 114 NF Result Comment: <130 mg/dL, Optimal 130-159 mg/dL, Near optimal/above optimal 160-189 mg/dL, Borderline high 190-219 mg/dL, High >219 mg/dL, Very high Secondary prevention optimal non HDL Cholesterol levels are recommended to be < 100 mg/dL LAB VLDLNF <30 mg/dL VLDL Cholesterol, NF 20 LAB TCHDLN <5.10 mg/dL T Chol/HDL Ratio NF 3.85 LAB LDLHDN <2.54 mg/dL LDL/HDL Ratio, NF 2.35 Result Comment: Reference: 1. National Cholesterol Education Program ATP III Guideline At-A-Glance Quick Desk Reference: National Heart, Lung, and Blood [place]. National Institutes of Health. 2001: NIH Publication No. 01-3305. 2. An International Atherosclerosis Society position paper: global recommendations for the management of dyslipidemia: executive summary, Atherosclerosis. 2014: 232(2):410-413. Performed By: #### CMP, LIPNF, HBA1C #### [facility] [employer] [address] [place], [place] [address] HEMOGLOBIN A1C Collected: 06/18/2018 Status: F Source: [place] 9:35 AM [facility] REPOSITORY TYPE CODE TESTS RESULT OUT OF REFERENCE UNITS RANGE LAB HGBA1C 4.3-5.6 % High Hemoglobin A1c 9.3 Result Comment: [place] Diabetes Association guidelines indicate that patients with HgbA1c in the range 5.7-6.4% are at increased risk for development of diabetes, and intervention by lifestyle modification may be beneficial. HgbA1c greater or equal to 6.5% is considered diagnostic of diabetes. LAB HBA0 mg/dL Est. Average Glucose 220 Result Comment: eAG: (Estimated average glucose) is a calculated value from HgbA1c and is sales representative printing supplies of the average blood glucose level in the last 2-3 month period. Performed By: #### CMP, LIPNF, HBA1C #### [facility] [employer] [address] [place], [place] [address] DISCHARGE INSTRUCTION Observed: 06/16/2018 Status: F Source: [place] 12:00 AM [facility] REPOSITORY [facility] Medical Records Department [address] [place] [address] Discharge Instruction 06/15/18 1846 MR#: [id number] Acct: [id number] Name: DEBBY BAILON Rep #: [id number] : 1980 37 From: Will Barcenas MD PCP: Will Dietz MD Status: DEP ER ED Disposition - Plan for ED Patient: Disposition: Home or Assisted Living Chief Complaint: GI Bleed Instructions: ED Hematochezia Stable Referrals: Will Dietz MD [Primary Care Provider] - 1 Week Additional Instructions: Follow-up with your primary care physician. Return if a lot heavier bleeding. What to do if you have Problems For any increased pain, shortness of breath, bleeding, nausea or vomiting, chest pain, or any unexpected problems, contact your Primary Care Provider. Call [facility] ([phone]) or report to the closest Emergency Room. Call 911 if necessary. 06/16/18 0000 <Electronically signed by Will Barcenas MD> Date Will Barcenas MD Cosigner Signature (If Indicated): Date CC: Will Dietz MD EMERGENCY DEPARTMENT Observed: 06/16/2018 Status: F Source: [place] SUMMARY 12:00 AM [facility] REPOSITORY [facility] Medical Records Department [address] [place] [address] Emergency Department Summary 06/15/18 1843 MR#: [id number] Acct: [id number] Name: DEBBY BAILON Rep #: [id number] : 1980 37 From: Will Barcenas MD PCP: Will Dietz MD Status: DEP ER - ER Visit Summary Date of Service: 06/15/18 Chief Complaint: Rectal bleeding History of Present Illness: The patient is a 37 F history of xft-zbuvgdw-ndvuohgmt diabetes, spina bifida and neurogenic bladder chronic history of constipation. States the last week she has had normal bowel movements. However today she had rectal bleeding prior to arrival. States she is never had rectal bleeding before. Denies straining at stool. Denies being on any blood thinners. Denies being lightheaded or dizzy. Physical Examination: No acute distress. HEENT exam unremarkable. Lungs clear to auscultation bilaterally. Heart regular rate and rhythm no murmur. Abdomen is normal bowel sounds no peritoneal signs. Remedies moves all 4. Neurologically awake and alert. Rectal exam done with female nurse present in the room there is no gross blood. Brown soft stool. Nontender. No masses. No obvious external hemorrhoids and no palpable internal hemorrhoids or masses Test Results: CBC shows hemoglobin 11.8 which the patient has had before in the past. Emergency Department Course and Treatment: Patient's been observed in the ER for nearly 2 hours. She has had no further symptoms. She is doing well on repeat exam at 18:36 comfortable being discharged home with outpatient follow-up. Treatment Plan: Warm soaks and outpatient follow-up for colonoscopy as needed. Return if worse. Disposition: Discharge Impression: Acute rectal bleeding of uncertain etiology This note was generated with [employer] dictation software. It may contain incorrect words, spelling, and punctuation that were not noted in review of the chart prior to signing ED Disposition - Plan for ED Patient: Chief Complaint: GI Bleed Referrals: Will Dietz MD [Primary Care Provider] - What to do if you have Problems For any increased pain, shortness of breath, bleeding, nausea or vomiting, chest pain, or any unexpected problems, contact your Primary Care Provider. Call [facility] ([phone]) or report to the closest Emergency Room. Call 911 if necessary. 06/16/18 0000 <Electronically signed by Will Barcenas MD> Date Will Barcenas MD Cosigner Signature (If Indicated): Date CC: Will Dietz MD CBC-COMPLETE BLOOD CNT Collected: 06/15/2018 Status: F Source: [place] NO DIFF 5:34 PM [facility] REPOSITORY TYPE CODE TESTS RESULT OUT OF RANGE REFERENCE UNITS LAB L100.1000 4.4-11.0 K/mm3 Normal WBC 9.6 LAB L100.1200 4.2-5.4 M/mm3 Low RBC 4.07 LAB L100.1300 12.0-15.0 g/dl Low HGB 11.8 LAB L100.1400 37-47 % Low HCT 36.9 LAB L100.1500 81-99 fL Normal MCV 90.7 LAB L100.1600 27.0-32.0 pg Normal MCH 29.0 LAB L100.1700 32-36 g/gl Normal MCHC 32.0 LAB L100.1810 11.6-14.6 % Normal RDW CV 13.5 LAB L100.1820 35.1-43.9 fl High RDW SD 44.3 LAB L100.1900 150-450 K/mm3 Normal PLT 180 LAB L100.2000 6.2-12.0 fl Normal MPV 10.8 Performed By: #### L100.0500 #### [facility] [address] [facility] [place], [address] EMERGENCY DEPARTMENT Observed: 06/05/2018 Status: F Source: [place] SUMMARY 4:12 PM [facility] REPOSITORY [facility] Medical Records Department [address] [place] [address] Emergency Department Summary 06/05/18 1609 MR#: [id number] Acct: [id number] Name: DEBBY BAILON Rep #: [id number] : 1980 37 From: Jayson Yost MD PCP: Will Dietz MD Status: REG ER - ER Visit Summary Date of Service: 06/05/18 Chief Complaint: Left knee pain History of Present Illness: The patient is a 37 F she was getting out of a transportation vehicle stepped the wrong way and twisted her left knee. She has pain in the knee nowhere else. No other injury. Physical Examination: Otherwise normal exam, she is got tenderness over the anterior part of her knee, infrapatellar region. She has normal extensor mechanism. No laxity on anterior posterior medial lateral stressors. Emergency Department Course and Treatment: X-rays unremarkable patient will be discharged with reassurance she is able to ambulate. Discharge stable condition Impression: [Left knee strain] This note was generated with Schvey dictation software. It may contain incorrect words, spelling, and punctuation that were not noted in review of the chart prior to signing ED Disposition - Plan for ED Patient: Disposition: Home or Assisted Living Chief Complaint: Lower Extremity Injury Instructions: ED Sprain Knee Prescriptions: Naproxen [Naprosyn] 500 mg PO BID PRN #20 tab Referrals: Will Dietz MD [Primary Care Provider] - What to do if you have Problems For any increased pain, shortness of breath, bleeding, nausea or vomiting, chest pain, or any unexpected problems, contact your Primary Care Provider. Call [facility] ([phone]) or report to the closest Emergency Room. Call 911 if necessary. 06/05/18 1612 <Electronically signed by Jayson Yost MD> Date Jayson Yost MD Cosigner Signature (If Indicated): Date CC: Will Dietz MD KNEE 4 OR MORE Observed: 06/05/2018 Status: F Source: [place] VIEWS 2:00 PM [facility] REPOSITORY [facility] Imaging Services [address] [place] [address] Knee 4 or More Views MR#: [id number] Acct: [id number] Name: UVALDODEBBY L Rep #: [id number] : 1980 F 37 From: Stephan Sood MD PCP: Will Dietz MD Status: REG ER Study: Knee 4 or More Views Date of Exam: 06/05/18 Exam# [id number] Ordering Dr: Jayson Yost MD STUDY: X-RAY - LEFT KNEE REASON FOR EXAM: Female, 37 years old. Pain following a fall. TECHNIQUE: 4 view(s) of the knee. COMPARISON: Comparison is made with prior study dated March 22, 2018. FINDINGS: Normal visualized distal femur. Normal visualized proximal tibia and fibula. Normal proximal tibiofibular articulation. Normal medial femorotibial compartment. Normal lateral femorotibial compartment. Normal patellofemoral articulation. The soft tissue structures are unremarkable. RAD/Knee 4 or More Views IMPRESSION: Normal x-ray examination of the knee. Electronically Signed: Stephan Sood MD at 14:46 EST Tel [phone], Service support , CC: Will Dietz MD; Jayson Yost MD Sketcher: Signed CBC Collected: 05/25/2018 Status: F Source: [facility] 8:19 PM [facility] REPOSITORY TYPE CODE TESTS RESULT OUT OF REFERENCE UNITS RANGE LAB WBC(LOINC) 4.60-10.80 10 3/mcL High WBC 13.20 LAB RBCCT(LOINC 4.20-5.40 10 6/mcL ) RBC 4.65 LAB HGB(LOINC) 12.0-16.0 G/dL Hgb 13.6 LAB HCT(LOINC) 37.0-47.0 % Hct 41.3 LAB MCV(LOINC) 80.0-94.0 fL MCV 88.8 LAB MCH(LOINC) 27.0-31.2 pg MCH 29.2 LAB MCHC(LOINC) 33.0-37.0 G/dL Low MCHC 32.9 LAB RDW(LOINC) 11.5-14.5 % RDW 13.3 LAB PLT(LOINC) 130-400 10 3/mcL Platelet 235 LAB MPV(LOINC) 7.4-10.4 fL MPV 8.5 Performed By: #### CBC, ADIFF, ANEU #### [address] [address] #### BMP, GFR #### [address] [address] .AUTO DIFF Collected: 05/25/2018 Status: F Source: [facility] 8:19 PM [facility] REPOSITORY TYPE CODE TESTS RESULT OUT OF REFERENCE UNITS RANGE LAB CHRIS(LOINC) 37.0-80.0 % Neutrophil % 71.9 LAB LYM(LOINC) 10.0-50.0 % Lymphocyte % 17.7 LAB MON(LOINC) 1.7-13.0 % Monocyte % 7.3 LAB EO(LOINC) 0.0-7.0 % Eosinophil % 2.0 LAB BAS(LOINC) 0.0-2.5 % Basophil % 1.1 LAB ABLYM(LOIN 0.77-3.85 10 3/mcL C) Lymphocyte, 2.30 Absolute LAB JOSH(LOINC 0.15-1.00 10 3/mcL ) Monocyte, 1.00 Absolute LAB AEOS(LOINC 0.00-0.40 10 3/mcL ) Eosinophil, 0.30 Absolute LAB ABAS(LOINC 0.00-0.19 10 3/mcL ) Basophil, 0.10 Absolute Performed By: #### CBC, ADIFF, ANEU #### [place] [address] [place], [place] [address] #### BMP, GFR #### [address] [address] .NEUABS Collected: 05/25/2018 Status: F Source: [facility] 8:19 [facility] REPOSITORY TYPE CODE TESTS RESULT OUT OF REFERENCE UNITS RANGE LAB ANEU(LOINC) 2.85-6.16 10 3/mcL High Neutrophil, 9.50 Absolute Performed By: #### CBC, ADIFF, ANEU #### [address] [address] #### BMP, GFR #### [address] [address] BMP Collected: 05/25/2018 Status: F Source: [facility] 8:19 [facility] REPOSITORY TYPE CODE TESTS RESULT OUT OF REFERENCE UNITS RANGE LAB GLU(LOINC) 70-105 mg/dL Glucose High Level 208 LAB NA(LOINC) 136-145 mmol/L Sodium Level 142 LAB K(LOINC) 3.5-5.1 mmol/L Potassium Level 4.0 LAB CL(LOINC) 98-107 mmol/L Chloride 103 LAB CO2(LOINC) 22-29 mmol/L CO2 28 LAB EBAL(LOINC mEq/L ) Electrolyte Balance 11.0 LAB BUN(LOINC) 7-18 mg/dL BUN 12 LAB CRE(LOINC) 0.55-1.02 mg/dL Creatinine High Lvl (s) 1.07 LAB BC(LOINC) 7-27 ratio BUN/Creatinine 11 Ratio LAB CA(LOINC) 8.4-10.2 mg/dL Calcium Lvl 9.7 Performed By: #### CBC, ADIFF, ANEU #### [address] [place] [place], [place] [address] #### BMP, GFR #### [address] [address] .GFR Collected: 05/25/2018 Status: F Source: [facility] 8:19 PM [facility] REPOSITORY TYPE CODE TESTS RESULT OUT OF REFERENCE UNITS RANGE LAB GFRAA(LOINC ml/min/1.73 ) sqm GFR 70 Afghan Result Comment: GFR Population mean for , Non- Americans Ages 20-29 = 116 mL/min/1.73 sq.m. Ages 30-39 = 107 mL/min/1.73 sq.m. Ages 40-49 = 99 mL/min/1.73 sq.m. Ages 50-59 = 93 mL/min/1.73 sq.m. Ages 60-69 = 85 mL/min/1.73 sq.m. Ages 70+ = 75 mL/min/1.73 sq.m. Chronic Kidney Disease: Less than 60 mL/min/1.73 square meters End Stage Renal Disease: Less than 15 mL/min/1.73 square meters LAB GFRNO(LOINC) ml/min/1.73sqm GFR Non- 58 Result Comment: GFR Population mean for , Non- Americans Ages 20-29 = 116 mL/min/1.73 sq.m. Ages 30-39 = 107 mL/min/1.73 sq.m. Ages 40-49 = 99 mL/min/1.73 sq.m. Ages 50-59 = 93 mL/min/1.73 sq.m. Ages 60-69 = 85 mL/min/1.73 sq.m. Ages 70+ = 75 mL/min/1.73 sq.m. Chronic Kidney Disease: Less than 60 mL/min/1.73 square meters End Stage Renal Disease: Less than 15 mL/min/1.73 square meters Performed By: #### CBC, ADIFF, ANEU #### [address] [address] #### BMP, GFR #### [address] [address] Observed: 05/25/2018 Status: F Source: [facility] 8:19 PM [facility] REPOSITORY . MICRO - Microbiology PROCEDURE: Urine Culture [*1] SOURCE: Urine, Clean Catch BODY SITE: COLLECTED DATE/TIME: 05/25/2018 20:19 EST RECEIVED DATE/TIME: 05/26/2018 17:20 EST START DATE/TIME: 05/26/2018 17:20 EST FREE TEXT SOURCE: FINAL REPORTS Final Report [] Verified Date/Time/Personnel: 05/28/2018 07:53 EST >100,000 organisms per mL Mixed without predominant isolate(s). Sensitivity Testing not indicated. Probably contamination. Repeat culture suggested. PRELIMINARY REPORTS Preliminary Report [] Verified Date/Time/Personnel: 05/27/2018 13:32 EST Culture results pending. Performing Locations *1: This test was performed at: [address], [address] [place] [address] Performed By: #### CUR #### [place] [address] UA Collected: 05/25/2018 Status: F Source: [facility] 8:11 PM [facility] REPOSITORY TYPE CODE TESTS RESULT OUT OF RANGE REFERENCE UNITS LAB SPCUA(TERE NC) UA Specimen Type Void LAB CLRUA(TERE NC) UA Color Yellow LAB APPUA(TERE Clear NC) UA Appear Unknown Cloudy LAB SGUA(LOIN C) UA Spec Grav 1.020 LAB GLUA(LOIN Negative mg/dL C) UA Glucose Unknown 1000 LAB BILUA(TERE Negative NC) UA Bili Negative LAB KETUA(TERE Negative mg/dL NC) UA Ketones Negative LAB BLDUA(TERE Negative NC) UA Blood Unknown Large LAB PHUA(LOIN C) UA pH 7.0 LAB PROUA(TERE Negative mg/dL NC) UA Protein Unknown 100 LAB UROUA(TERE E.U./dL NC) UA Urobilinogen 0.2 LAB NITUA(TERE Negative NC) UA Nitrite Negative LAB LEUUA(TERE Negative NC) UA Leuk Est Unknown Moderate Performed By: #### UA, UAMICAO #### [place] [address] #### PREGU #### [address] [address] PREGU Collected: 05/25/2018 Status: F Source: [facility] 8:11 PM [facility] REPOSITORY TYPE CODE TESTS RESULT OUT OF RANGE REFERENCE UNITS LAB PREGU(LOIN C) Test Negative Urine LAB PRUG1(LOIN C) Unknown test HCG not (u) int detected. Performed By: #### UA, UAMICAO #### [address] [address] #### PREGU #### [address] [place], [place] [address] .URINALYSIS MICROSCOPIC Collected: 05/25/2018 Status: F Source: [place] [facility] 8:11 PM [facility] REPOSITORY TYPE CODE TESTS RESULT OUT OF RANGE REFERENCE UNITS LAB WBCUA(LOIN None Seen /hpf C) Unknown UA WBC LOADED LAB RBCUA(LOIN None Seen /hpf C) Unknown UA RBC 5-10 LAB EPIUA(LOIN None Seen /hpf C) Unknown UA Squam Epithelial 0-5 LAB BACUA(LOIN /hpf C) Unknown UA Bacteria Trace Performed By: #### UA, UAMICAO #### [place] [address] #### PREGU #### [address] [place] [place], [place] [address] EMERGENCY DEPARTMENT Observed: 05/11/2018 Status: F Source: [place] SUMMARY 12:18 PM [facility] REPOSITORY [facility] Medical Records Department [address] [place] [address] Emergency Department Summary 05/11/18 1140 MR#: [id number] Acct: [id number] Name: DEBBY BAILON Rep #: [id number] : 1980 37 From: Terrence Ramon MD [...] Dysuria, headache This note was generated with VTMation software. It may contain incorrect words, spelling, [...] problems, contact your Primary Care Provider. Call [facility] ([phone]) or report to the closest Emergency Room. Call 911 if necessary. 05/11/181217 <Electronically signed by Terrence Ramon MD> Date Terrence Ramon MD Cosigner Signature (If Indicated): Date CC: Will Dietz MD DISCHARGE INSTRUCTION Observed: 05/11/2018 Status: F Source: [place] 12:18 PM [facility] REPOSITORY [facility] Medical Records Department [address] [place] [address] Discharge Instruction 05/11/181217 MR#: [id number] Acct: [id number] Name: DEBBY BAILON Rep #: [id number] : 1980 37 From: Terrence Ramon MD [...] your Primary Care Provider. Call [facility] ([phone]) or report to the closest Emergency Room. Call 911 if necessary. 05/11/18 1218 <Electronically signed by Terrence Ramon MD> Date Terrence Ramon MD Cosigner Signature (If Indicated): Date CC: Will Dietz MD URINALYSIS, COMPLETE Collected: 05/11/2018 Status: F Source: [place] 11:45 AM [facility] REPOSITORY Order Comment: How was Urine Obtained? LINE REPAIRER TOWER TO SPECIFY TYPE CODE TESTS RESULT OUT [...] URINE SEEN Performed By: #### L400.0001 #### [facility] [address] [place], [address] ,URINE Collected: 05/11/2018 Status: F Source: [place] 11:45 AM [facility] REPOSITORY TYPE CODE TESTS RESULT OUT OF REFERENCE UNITS RANGE LAB L400.8000 Negative Normal HCGUQUAL Negative Result Comment: Very dilute urine specimens, as indicated by a low specific gravity, may not contain sales representative printing supplies levels of hCG. If is still suspected, a first morning urine specimen should be collected 48 hours later and tested. Performed By: #### L400.7600 #### [facility] [address] [place], [place], [address] PROGRESS Observed: 05/09/2018 Status: COMPLETED Source: [place] 10:51 AM [facility] REPOSITORY HNO ID: [id number] Author: Will Dietz Service: (none) Author Type: [...] 12/05/2017 - Dysthymic disorder Depression (non-psychotic), sees TRAIN EXAMINER at [facility]. - History of kidney stones 01/04/2016 - [...] 02/12/2015 - Neurogenic bowel 01/06/2016 - Neuropathy ([facility]) 02/12/2015 post back surgery with secondary infection. Seeing Dr. Gregg - Numbness and tingling of left arm and leg 08/07/2013 - Panic attacks - Paroxysmal SVT (supraventricular tachycardia) ([facility]) 07/03/2017 Per 48 Hr event monitor 06/30/2017 - Primary insomnia 02/17/2016 - Spina bifida ([facility]) 01/06/2016 - Thyroid cyst 01/01/2018 Complex right sided cysts. US 12/2017, biopsy per Dr. Josue 01/23/2018 benign. Repeat US in a year. - Type 2 diabetes mellitus with albuminuria ([facility]) 10/18/2016 - 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) 02/19/2016 - Ulcer of left foot ([facility]) 02/21/2017 - Ventral hernia without obstruction or [...] E13.29 Insulin: No Blood-Glucose Meter (ACCU-CHEK ANISH) [facility] [place]pense 1 meter kit. Dx: Other DM [...] daily as needed. 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 - History of kidney stones 01/04/2016 - [...] E13.29 Insulin: No Blood-Glucose Meter (ACCU-CHEK ANISH) [facility] [place]pense 1 meter kit. Dx: Other DM [...] daily as needed. 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 Migraine without aura and without status migrai*INVALID FOR*02/28/2018 Type 2 diabetes mellitus with albuminuria ([facility])*INVALID FOR* Well adult exam [Z00.00] INVALID FOR* [...] 05/09/18 PROGRESS Observed: 05/03/2018 Status: COMPLETED Source: [place] 11:06 AM [facility] REPOSITORY HNO ID: [id number] Author: Gavin Gomez Service: (none) Author Type: [...] 12/05/2017 - Dysthymic disorder Depression (non-psychotic), sees TRAIN EXAMINER at [facility]. - History of kidney stones 01/04/2016 - [...] Panic attacks - Paroxysmal SVT (supraventricular tachycardia) ([facility]) 07/03/2017 Per 48 Hr event monitor 06/30/2017 - Primary insomnia 02/17/2016 - Spina bifida (HCC) 01/06/2016 - Thyroid cyst 01/01/2018 Complex right sided cysts. US 12/2017, biopsy per Dr. Josue 01/23/2018 benign. Repeat US in a year. - Type 2 diabetes mellitus with albuminuria ([facility]) 10/18/2016 - Type 2 diabetes mellitus with proteinuria ([facility]) 02/19/2016 - Ulcer of left foot ([facility]) 02/21/2017 - Ventral hernia without obstruction or gangrene - Weakness of both upper extremities 08/07/2013 Chronic Current Outpatient Prescriptions: liraglutide (VICTOZA) 0.6 mg/ 0.1 ml subcutaneous pen injector Inject 0.6 mg subcutaneously once daily. After one week increase to 1.2mg daily Insulin [place], Disposable, 32 gauge x 5/16 ndle Use [...] mouth as needed. Blood-Glucose Meter (ACCU-CHEK ANISH) [facility] [place]pense 1 meter kit. Dx: Other DM [...] DPM PROGRESS Observed: 05/03/2018 Status: COMPLETED Source: [place] 10:53 AM [facility] REPOSITORY HNO ID: [id number] Author: Elizabeth Olvera Service: (none) Author Type: (none) Type: Progress Notes Filed: 05/03/2018 12:23 PM Note Text: AMB ROOMING INTAKE FLOWSHEET DATA Risk Screening Do you have concerns about personal safety or safety in the home?: No Patient presents for 1 week post nail avulsion, left medial Hallux. Elizabeth Olvera CNOV Observed: 05/03/2018 Status: COMPLETED Source: [place] 10:40 AM [facility] REPOSITORY Office Visit (PODIWS) DEBBY BAILON ([id number]) 1980 F Date Time Provider Department 05/03/18 10:40 AM GAVIN GOMEZ [facility] During your visit today, we recorded the following information about you: Elizabeth Kayy 05/03/2018 12:23 PM Signed AMB ROOMING INTAKE FLOWSHEET DATA Risk Screening Do you have concerns about personal safety or safety in the home?: No Patient presents for 1 week post nail avulsion, left medial Hallux. Elizabeth Gomez DPM 05/03/2018 12:23 PM Signed Follow [...] 12/05/2017 - Dysthymic disorder Depression (non-psychotic), sees TRAIN EXAMINER at [facility]. - History of kidney stones 01/04/2016 - History of recurrent UTIs 11/28/2011 - Hydronephrosis, right 01/04/2016 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 - Lumbago 02/12/2015 - Migraine without aura and without status migrainosus, not intractable 10/18/2016 - Miscarriage - Morbid obesity ([facility]) 02/12/2015 - Muscle weakness of left lower extremity 08/07/2013 - Neck pain 05/02/2013 - Neurogenic bladder 02/12/2015 - Neurogenic bowel 01/06/2016 - Neuropathy ([facility]) 02/12/2015 post back surgery with secondary infection. Seeing Dr. Gregg - Numbness and tingling of left arm and leg 08/07/2013 - Panic attacks - Paroxysmal SVT (supraventricular tachycardia) ([facility]) 07/03/2017 Per 48 Hr event monitor 06/30/2017 - Primary insomnia 02/17/2016 - Spina bifida (HCC) 01/06/2016 - Thyroid cyst 01/01/2018 Complex right sided cysts. US 12/2017, biopsy per Dr. Josue 01/23/2018 benign. Repeat US in a year. - Type 2 diabetes mellitus with albuminuria ([facility]) 10/18/2016 - Type 2 diabetes mellitus with proteinuria ([facility]) 02/19/2016 - Ulcer of left foot ([facility]) 02/21/2017 - Ventral hernia without obstruction or gangrene - Weakness of both upper extremities 08/07/2013 Chronic Current Outpatient Prescriptions: liraglutide (VICTOZA) 0.6 mg/ 0.1 ml subcutaneous pen injector Inject 0.6 mg subcutaneously once daily. After one week increase to 1.2mg daily Insulin [place], Disposable, 32 gauge x 5/16 ndle Use [...] mouth as needed. Blood-Glucose Meter (ACCU-CHEK ANISH) [facility] [place] 1 meter kit. Dx: Other DM [...] and 2nd toes Referring Provider: GAVIN GOMEZ [[id number]] Allergies As of Date: 05/03/2018 Noted Allergy [...] 05/03/18 PROGRESS Observed: 04/30/2018 Status: COMPLETED Source: [place] 3:30 PM [facility] REPOSITORY [facility] ID: [id number] Author: Sandra gAuiar (Pharmacist) Service: (none) Author Type: Pharmacist Type: [...] Adherence: denies missed doses. ? Pharmacy: [facility] ? Rx coverage: Medicare Hum[employer] ? Affordability: no issues ? Diabetes supplies: [facility] meter ? 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[facility]) Lumbago Neuropathy ([facility]) Morbid Obesity ([facility]) Chronic Pain Neurogenic Bladder Hydronephrosis, Right History of Kidney Stones Spina Bifida ([facility]) Neurogenic Bowel Primary Insomnia Type 2 Diabetes Mellitus With Proteinuria ([facility]) Pyelonephritis Diabetic Eye Exam ([facility]) Type 2 Diabetes Mellitus With Albuminuria ([facility]) Well Adult Exam Paroxysmal Svt (Supraventricular Tachycardia) ([facility]) Dm (Diabetes Mellitus), Secondary, Uncontrolled, W/Renal Complications ([facility]) S/P Hernia Repair Thyroid Cyst Migraine Without [...] DM (diabetes mellitus), secondary, uncontrolled, w/renal complications ([facility]) 12/05/2017 - Dysthymic disorder Depression (non-psychotic), sees TRAIN EXAMINER at [facility]. - History of kidney stones 01/04/2016 - History of recurrent UTIs 11/28/2011 - Hydronephrosis, right 01/04/2016 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 - Lumbago 02/12/2015 - Migraine without aura and without status migrainosus, not intractable 10/18/2016 - Miscarriage - Morbid obesity ([facility]) 02/12/2015 - Muscle weakness of left lower extremity 08/07/2013 - Neck pain 05/02/2013 - Neurogenic bladder 02/12/2015 - Neurogenic bowel 01/06/2016 - Neuropathy ([facility]) 02/12/2015 post back surgery with secondary infection. Seeing Dr. Gregg - Numbness and tingling of left arm and leg 08/07/2013 - Panic attacks - Paroxysmal SVT (supraventricular tachycardia) ([facility]) 07/03/2017 Per 48 Hr event monitor 06/30/2017 - Primary insomnia 02/17/2016 - Spina bifida ([facility]) 01/06/2016 - Thyroid cyst 01/01/2018 Complex right sided cysts. US 12/2017, biopsy per Dr. Josue 01/23/2018 benign. Repeat US in a year. - Type 2 diabetes mellitus with albuminuria ([facility]) 10/18/2016 - Type 2 diabetes mellitus with proteinuria ([facility]) 02/19/2016 - Ulcer of left foot ([facility]) 02/21/2017 - Ventral hernia without obstruction or [...] E13.29 Insulin: No Blood-Glucose Meter (ACCU-CHEK ANISH) [facility] [place] 1 meter kit. Dx: Other DM [...] patient to continue checking FBGs daily, contact [facility] Medical re: DM supplies ? Labs in April Health Maintenance issues addressed: DILATED RETINAL EXAM due on 01/25/2018 Patient is scheduled to see PCP 05/09. Patient to return to clinic for PharmD f/u on 06/05. Patient verbalized understanding of instructions. Sandra Aguiar PharmD, BCPS CNOV Observed: 04/30/2018 Status: COMPLETED Source: [place] 3:30 PM [facility] REPOSITORY Office Visit (PHMEWO) UVALDODEBBY Colette ([id number]) 1980 F Date Time Provider Department 04/30/18 3:30 PM COSME (PHARMACIST), SANDRA BENSON During your visit today, we recorded the following information about you: DWAYNE RUTLEDGE 04/30/2018 4:25 PM Signed Patient consents to pharmacy collaborative practice agreement. REASON FOR CONSULT: DM GOALS: A1c < 7% CONSULTING PROVIDER: Dr. Dietz Date of Consult: 02/28/18 Debby Colette Bailon is a 37 year old female [...] Adherence: denies missed doses. ? Pharmacy: [facility] ? Rx coverage: Medicare [employer] ? Affordability: no issues ? Diabetes supplies: [facility] meter ? 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Formerly [facility]) Lumbago Neuropathy (Formerly [facility]) Morbid Obesity (Formerly [facility]) Chronic Pain Neurogenic Bladder Hydronephrosis, Right History of Kidney Stones Spina Bifida (Formerly [facility]) Neurogenic Bowel Primary Insomnia Type 2 Diabetes Mellitus With Proteinuria ([facility]ly [facility]) Pyelonephritis Diabetic Eye Exam (Formerly [facility]) Type 2 Diabetes Mellitus With Albuminuria (Formerly [facility]) Well Adult Exam Paroxysmal Svt (Supraventricular Tachycardia) (Formerly [facility]) Dm (Diabetes Mellitus), Secondary, Uncontrolled, W/Renal Complications ([facility]ly [facility]) S/P Hernia Repair Thyroid Cyst Migraine Without [...] DM (diabetes mellitus), secondary, uncontrolled, w/renal complications (FORM[facility]LY [facility]) 12/05/2017 - Dysthymic disorder Depression (non-psychotic), sees TRAIN EXAMINER at [facility]. - History of kidney stones 01/04/2016 - [...] 02/12/2015 - Neurogenic bowel 01/06/2016 - Neuropathy ([facility]) 02/12/2015 post back surgery with secondary infection. Seeing Dr. Gregg - Numbness and tingling of left arm and leg 08/07/2013 - Panic attacks - Paroxysmal SVT (supraventricular tachycardia) ([facility]) 07/03/2017 Per 48 Hr event monitor 06/30/2017 - Primary insomnia 02/17/2016 - Spina bifida (FORM[facility]) 01/06/2016 - Thyroid cyst 01/01/2018 Complex right sided cysts. US 12/2017, biopsy per Dr. Josue 01/23/2018 benign. Repeat US in a year. - Type 2 diabetes mellitus with albuminuria ([facility]) 10/18/2016 - Type 2 diabetes mellitus with proteinuria ([facility]) 02/19/2016 - Ulcer of left foot ([facility]) 02/21/2017 - Ventral hernia without obstruction or [...] E13.29 Insulin: No Blood-Glucose Meter (ACCU-CHEK ANISH) [facility] [place]pense 1 meter kit. Dx: Other DM [...] patient to continue checking FBGs daily, contact [facility] Medical re: DM supplies ? Labs in April Health Maintenance issues addressed: DILATED RETINAL EXAM due on 01/25/2018 Patient is scheduled to see PCP 05/09. Patient to return to clinic for PharmD f/u on 06/05. Patient verbalized understanding of instructions. Sandra Aguiar PharmD, BCPS SANDRA AGUIAR, PHARMACIST 04/30/2018 4:04 PM Signed [facility] Medical - glucometer, test strips, how to get from them Victoza 0.6mg daily, after one week 1.2mg daily Stop glimepiride Check sugars every morning before breakfast Bring machine next appointment Sandra Aguiar PharmD, BCPS [phone] Referring Provider: WILL DIETZ [[id number]] Allergies As of Date: 04/30/2018 Noted Allergy [...] to 1.2mg dailyDisp: 2 PenRfl: 1 Insulin [place], Disposable, 32 gauge x 5/16 ndleUse once [...] morning before breakfast Bring machine next appointment Sandra Aguiar, PharmD, [facility] [phone] Prescriptions ordered this encounter Disp Refills Start [...] not on file. Encounter Status:Closed by COSME (PHARMACIST)SANDRA on 04/30/18 PROGRESS Observed: 04/26/2018 Status: COMPLETED Source: [place] 10:32 AM [facility] REPOSITORY [facility] ID: [id number] Author: Brittney Cook RN Service: (none) Author [...] RN PROGRESS Observed: 04/26/2018 Status: COMPLETED Source: [place] 9:47 AM [facility] REPOSITORY [facility] ID: [id number] Author: Gavin Gomez Service: (none) Author Type: [...] 12/05/2017 - Dysthymic disorder Depression (non-psychotic), sees TRAIN EXAMINER at [facility]. - History of kidney stones 01/04/2016 - [...] 02/12/2015 - Neurogenic bowel 01/06/2016 - Neuropathy ([facility]) 02/12/2015 post back surgery with secondary infection. Seeing Dr. Gregg - Numbness and tingling of left arm and leg 08/07/2013 - Panic attacks - Paroxysmal SVT (supraventricular tachycardia) ([facility]) 07/03/2017 Per 48 Hr event monitor 06/30/2017 - Primary insomnia 02/17/2016 - Spina bifida (HCC) 01/06/2016 - Thyroid cyst 01/01/2018 Complex right sided cysts. US 12/2017, biopsy per Dr. Josue 01/23/2018 benign. Repeat US in a year. - Type 2 diabetes mellitus with albuminuria ([facility]) 10/18/2016 - Type 2 diabetes mellitus with proteinuria ([facility]) 02/19/2016 - Ulcer of left foot ([facility]) 02/21/2017 - Ventral hernia without obstruction or [...] mouth as needed. Blood-Glucose Meter (ACCU-CHEK ANISH) [facility] [place] 1 meter kit. Dx: Other DM [...] DPM CNOV Observed: 04/26/2018 Status: COMPLETED Source: [place] 9:10 AM [facility] REPOSITORY Office Visit (PODIWS) DEBBY BAILON ([id number]) 1980 F Date Time Provider Department 04/26/18 9:10 AM GAVIN GOMEZ PODIWS During your visit [...] DM (diabetes mellitus), secondary, uncontrolled, w/renal complications ([facility]) 12/05/2017 - Dysthymic disorder Depression (non-psychotic), sees TRAIN EXAMINER at [facility]. - History of kidney stones 01/04/2016 - [...] 02/12/2015 - Neurogenic bowel 01/06/2016 - Neuropathy ([facility]) 02/12/2015 post back surgery with secondary infection. Seeing Dr. Gregg - Numbness and tingling of left arm and leg 08/07/2013 - Panic attacks - Paroxysmal SVT (supraventricular tachycardia) ([facility]) 07/03/2017 Per 48 Hr event monitor 06/30/2017 [...] mouth as needed. Blood-Glucose Meter (ACCU-CHEK ANISH) [facility] [place] 1 meter kit. 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 Follow-up and Disposition History Recorded Encounter Status:Closed by GAVIN GOMEZ DPM on 04/27/18 EMERGENCY DEPARTMENT Observed: 04/26/2018 Status: F Source: [place] SUMMARY 8:16 AM [facility] REPOSITORY [facility] Medical Records Department [address] [place] [address] Emergency Department Summary 04/24/18 1628 MR#: [id number] Acct: [id number] Name: DEBBY BAILON Rep #: [id number] : 1980 37 From: Nemesio Sanderson DO [...] reports now having an appointment with her string winding machine operator at the [facility] on . The patient states that she [...] dressed. I will write for a few Randolph. The physical exam suggest more of an ingrown toenail then ingrown toenail with infection however we will keep her on the antibiotics. I believe the patient will have better outcome seeing her string winding machine operator and having the toenail removed. She will be given a postop shoe. Impression: 1. Ingrown left toenail This note was generated with Schvey dictation software. It may contain incorrect words, spelling, and punctuation that were not noted in review of the chart prior to signing ED Disposition - Plan for ED Patient: Disposition: Home or Assisted Living Chief Complaint: Wound Check Instructions: Understanding Ingrown Toenails Prescriptions: Hydrocodone Bitart/Apap 5-325 [Randolph 5MG-325MG] 1 tab PO Q6H PRN PRN 3 Days #10 tab PRN Reason: Pain Additional Instructions: 1. See your string winding machine operator as scheduled 2. Epson salt soaks 3 times daily for 20 minutes each session. 3. Bacitracin ointment 3 times a day. 4. Keep the wound covered when wearing a sock. Otherwise you can allow the wound to be to the air 5. Postop shoe instead of tennis shoe 6. Ibuprofen 800 mg every 8 hours. 7. Randolph sparingly for severe pain What to do if you have Problems For any increased pain, shortness of breath, bleeding, nausea or vomiting, chest pain, or any unexpected problems, contact your Primary Care Provider. Call [facility] ([phone]) or report to the closest Emergency Room. Call 911 if necessary. 04/26/18 0816 <Electronically signed by Nemesio Sanderson DO> Date Nemesio Sanderson DO Cosigner Signature (If Indicated): Date CC: Will Dietz MD EMERGENCY DEPARTMENT Observed: 04/23/2018 Status: F Source: [place] SUMMARY 8:29 PM [facility] REPOSITORY [facility] Medical Records Department [address] [place] [address] Emergency Department Summary 04/23/18 1918 MR#: [id number] Acct: [id number] Name: DEBBY BAILON Rep #: [id number] : 1980 37 From: Celine Boateng MD [...] her pain had increased. She called her string winding machine operator today and was referred to the emergency [...] 3 days. She has follow-up with her string winding machine operator tomorrow. At this time, I do not [...] left foot This note was generated with Schvey dictation software. It may contain incorrect words, [...] problems, contact your Primary Care Provider. Call [facility] ([phone]) or report to the closest Emergency Room. Call 911 if necessary. 04/23/182028 <Electronically signed by Celine Boateng MD> Date Celine Boateng MD Cosigner Signature (If Indicated): Date CC: Will Dietz MD FOOT MIN 3 VIEWS Observed: 04/23/2018 Status: F Source: [place] 6:43 PM [facility] REPOSITORY [facility] Imaging Services [address] [place] [address] Foot min 3 Views MR#: [id number] Acct: [id number] Name: DEBBY BAILON Rep #: [id number] : 1980 F 37 From: Alexander Peck MD PCP: Will Dietz MD Status: REG ER Study: Foot min 3 Views Date of Exam: 04/23/18 Exam# [id number] Ordering Dr: Celine Boateng MD STUDY: X-RAY [...] CC: Will Dietz MD; Celine Boateng MD Sketcher: Signed EMERGENCY DEPARTMENT Observed: 04/14/2018 Status: F Source: [place] SUMMARY 6:10 PM [facility] REPOSITORY [facility] Medical Records Department [address] [place] [address] Emergency Department Summary 04/14/18 1516 MR#: [id number] Acct: [id number] Name: DEBBY BAILON Rep #: [id number] : 1980 37 From: Arnold Brice PCP: [...] Patient understands. She has a urologist with [facility]. Treatment Plan: [] Disposition: Discharge Impression: 1. Urinary tract infection 2. Left flank pain This note was generated with Schvey dictation software. It may contain incorrect words, [...] your Primary Care Provider. Call [facility] ([phone]) or report to the closest Emergency Room. Call 911 if necessary. 04/14/18 1810 <Electronically signed by Arnold Brice> Date Arnold Brice Cosigner Signature (If Indicated): Date CC: Will Dietz MD URINALYSIS, COMPLETE Collected: 04/14/2018 Status: F Source: [place] 4:44 PM [facility] REPOSITORY Order Comment: Order Date: 04/14/18 Has [...] URINE SEEN Performed By: #### L400.0001 #### [facility] [address] [place], [address] Observed: 04/14/2018 Status: F Source: [place] CULTURE, URINE 4:44 PM [facility] REPOSITORY Order Date: 04/14/18 Has pt arrived? Y Urine Culture ORGANISM 1: Streptococcus mitis/ oralis [place] Count >100,000 ORGANISM 2: Staphylococcus epidermidis [place] Count 80,000-100,000 Streptococcus mitis/ oralis: REACTION Ampicillin $ 1 I Benzylpenicillin NF 0.25 I Cefotaxime $ <=0.12 S Ceftriaxone $ <=0.12 S Vancomycin $ 0.25 S (NF) indicates non-formulary drug at [facility]. Approval by Infectious Disease Specialist [...] 1 S (NF) indicates non-formulary drug at [facility]. Approval by Infectious Disease Specialist required before non-formulary drugs may be ordered and/or dispensed. * CLSI guidelines does not recommend testing of cephalosporins. This interpretation is deduced from Beta-lactam/penicillin results. Performed By: #### M100.0650 #### [facility] [address] [place], [address] CBC W/DIFF, AUTOMATED Collected: 04/14/2018 Status: F Source: [place] 3:25 PM [facility] REPOSITORY TYPE CODE TESTS RESULT OUT OF [...] Lymph 1.66 Performed By: #### L100.0100 #### [facility] [address] [facility] [place], [address] BASIC METABOLIC Collected: 04/14/2018 Status: F Source: [place] PROFILE (BMP) 3:25 PM [facility] REPOSITORY TYPE CODE TESTS RESULT OUT OF [...] GAP 10 Performed By: #### L500.2500 #### [facility] [address] [facility] [place], [address] DISCHARGE INSTRUCTION Observed: 04/14/2018 Status: F Source: [place] 12:55 AM [facility] REPOSITORY [facility] Medical Records Department [address] [facility] [address] Discharge Instruction 11/16/18 1935 MR#: [id number] Acct: [id number] Name: DEBBY BAILON Rep #: [id number] : 1980 37 From: Nemesio Pro MD [...] your Primary Care Provider. Call [facility] ([phone]) or report to the closest Emergency Room. Call 911 if necessary. 04/14/18 0055 <Electronically signed by Nemesio Pro MD> Date Nemesio Pro MD Cosigner Signature (If Indicated): Date CC: Will Dietz MD EMERGENCY DEPARTMENT Observed: 04/14/2018 Status: F Source: [place] SUMMARY 12:55 AM [facility] REPOSITORY [facility] Medical Records Department [address] [place] [address] Emergency Department Summary 04/13/18 1840 MR#: [id number] Acct: [id number] Name: DEBBY BAILON Rep #: [id number] : 1980 37 From: Nemesio Pro MD [...] 1. Constipation This note was generated with Schvey dictation software. It may contain incorrect words, [...] your Primary Care Provider. Call [facility] ([phone]) or report to the closest Emergency Room. Call 911 if necessary. 04/14/18 0055 <Electronically signed by Nemesio Pro MD> Date Nemesio Pro MD Cosigner Signature (If Indicated): Date CC: Will Dietz MD CBC W/DIFF, AUTOMATED Collected: 04/13/2018 Status: F Source: [place] 4:25 PM [facility] REPOSITORY TYPE CODE TESTS RESULT OUT OF [...] Lymph 1.96 Performed By: #### L100.0100 #### [facility] [address] [place], [address] COMPREHENSIVE METABOLIC Collected: 04/13/2018 Status: F Source: [facility] 4:25 PM [facility] REPOSITORY TYPE CODE TESTS RESULT OUT OF [...] GAP Performed By: #### L500.4050, L501.2450 #### [facility] [address] [facility] [place], [address] LIPASE Collected: 04/13/2018 Status: F Source: [place] 4:25 PM [facility] REPOSITORY TYPE CODE TESTS RESULT OUT OF RANGE REFERENCE UNITS LAB L501.2450 73-393 U/L Normal LIPASE 78 Performed By: #### L500.4050, L501.2450 #### [facility] [address] [place], [address] ,SERUM,HCG QUALI. Collected: Status: F Source: [place] 04/13/2018 4:25 PM [facility] REPOSITORY TYPE CODE TESTS RESULT OUT OF REFERENCE UNITS RANGE LAB L700.7000 0-9 Nonpreg Negative Normal HCGSQUAL NEGATIVE LAB L700.6700 =>Qualitative mIU/mL Normal HCG Qual < 1 triggr Performed By: #### L700.6800 #### [facility] [address] [facility] [place], [address] URINALYSIS, COMPLETE Collected: 04/13/2018 Status: F Source: [place] 4:10 PM [facility] REPOSITORY Order Comment: How was Urine Obtained? [...] URINE SEEN Performed By: #### L400.0001 #### [facility] [address] [place], [address] Observed: 04/13/2018 Status: F Source: [place] CULTURE, URINE 4:10 PM [facility] REPOSITORY Urine Culture ORGANISM 1: Mixed Gram Positive Organisms [place] Count >100,000 MIX CULTURE Mixed contaminants. Submit a new specimen if indicated. Performed By: #### M100.0650 #### [facility] [address] [place], [address] ABDOMEN/PELVIS WITH Observed: 04/13/2018 Status: F Source: [place] CONTRAST 3:43 PM [facility] REPOSITORY [facility] Imaging Services [address] [place] [address] Abdomen/Pelvis WITH Contrast MR#: [id number] Acct: [id number] Name: DEBBY BAILON Rep #: [id number] : 1980 F 37 From: Will Joe MD PCP: Will Dietz MD Status: REG Study: Abdomen/Pelvis WITH Contrast Date of Exam: 04/13/18 Exam# [id number] Ordering Dr: Nemesio Pro MD STUDY: CT [...] CC: Nemesio Pro MD; Will Dietz MD Sketcher: Signed DISCHARGE SUMMARY Observed: 04/12/2018 Status: F Source: [place] 11:04 AM [facility] REPOSITORY [facility] Medical Records Department [address] [place] [address] Discharge Summary 04/12/18 1056 MR#: [id number] Acct: [id number] Name: DEBBY BAILON Rep #: [id number] : 1980 37 From: Reymundo Encarnacion DO PCP: Will Dietz MD Status: ADM OLEG Y Location: [place] [address] Discharge Date and Diagnosis - Problem List [...] release other specialists as her OAR[facility] reports [facility] physicians providing some controlled substances at [...] Patient instructed to follow-up with her regular manager commercial at [facility]. Patient states that she is not been [...] applicable Code Visit OBSV E AND M: 77116 Observation care discharge 04/12/18 1104 <Electronically signed by Ryemundo Encarnacion DO> Date Reymundo Jopperi DO Cosigner Signature (if applicable): Date CC: Reymundo Encarnacion DO; Will Dietz MD Signed DISCHARGE INSTRUCTION Observed: 04/12/2018 Status: F Source: [place] 10:56 AM [facility] REPOSITORY [facility] Medical Records Department [address] [place] [address] Instructions for Home/Discharge Instructions 04/12/18 1054 MR#: [id number] Acct: [id number] Name: DEBBY BAILON Rep #: [id number] : 1980 37 From: Reymundo Encarnacion DO [...] BEDSIDE GLUCOSE Collected: 04/12/2018 Status: F Source: [place] 8:18 AM [facility] REPOSITORY TYPE CODE TESTS RESULT OUT OF REFERENCE UNITS RANGE LAB L501.080 70-110 mg/dL High BEDSIDE GLU 208 Result Comment: MANAGEMENT OF PATIENT CARE PER NURSING PROTOCOL Performed By: #### L501.080 #### [facility] Point of Care [address] [place] [address] CONSULTATION Observed: 04/12/2018 Status: F Source: [place] 7:44 AM [facility] REPOSITORY [facility] Medical Records Department [address] [place] [address] Consultation 04/12/18 0741 MR#: [id number] Acct: [id number] Name: DEBBY BAILON Rep #: [id number] : 1980 37 From: Herbert Reza MD PCP: Will Dietz MD Status: ADM OLEG Y Location: [place] [address] Problem List (1) Hydronephrosis Status: Acute Qualifiers: [...] she is followed by urologist at the [facility]. Most likely this hydronephrosis is due to [...] ventral hernia repair. Psychiatric History: Anxiety, Depression TOOTH POLISHER History: No pertinent TOOTH POLISHER history Lives: Spouse/ Significant Other Smoking Status: [...] to follow-up with a urologist at the [facility] regarding this finding and regarding her bladder management she may need further bladder management changes probably reflux from neurogenic bladder she appears to be catheterizing adequately. Call me with questions. 04/12/18 0744 <Electronically signed by Herbert Reza MD> Date Herbert Reza MD Cosigner Signature (if applicable): Date CC: Will Dietz MD; Herbert Reza MD Signed CBC W/DIFF, AUTOMATED Collected: 04/12/2018 Status: F Source: [place] 5:46 AM [facility] REPOSITORY TYPE CODE TESTS RESULT OUT OF [...] Lymph 1.00 Performed By: #### L100.0100 #### [facility] [address] [place], [address] BASIC METABOLIC Collected: 04/12/2018 Status: F Source: [place] PROFILE (BMP) 5:46 AM [facility] REPOSITORY TYPE CODE TESTS RESULT OUT OF [...] GAP 11 Performed By: #### L500.2500 #### [facility] [address] [facility] [place] [place], [address] ABDOMEN/PELVIS WITHOUT Observed: 04/12/2018 Status: F Source: [place] CONT 12:56 AM [facility] REPOSITORY [facility] Imaging Services [address] [place] [address] Abdomen/Pelvis without Cont MR#: [id number] Acct: [id number] Name: DEBBY BAILON Rep #: [id number] : 1980 F 37 From: Gavin Sanchez MD PCP: Will Dietz MD Status: ADM OLEG Study: Abdomen/Pelvis without Cont Date of Exam: 04/12/18 Exam# [id number] Ordering Dr: Gen Butt MD HISTORY: SEVERE [...] CC: Will Dietz MD; Gen Butt MD Sketcher: Signed BEDSIDE GLUCOSE Collected: 04/11/2018 Status: F Source: [place] 10:17 PM [facility] REPOSITORY TYPE CODE TESTS RESULT OUT OF REFERENCE UNITS RANGE LAB L501.080 70-110 mg/dL High BEDSIDE GLU 158 Result Comment: MANAGEMENT OF PATIENT CARE PER NURSING PROTOCOL Performed By: #### L501.080 #### [facility] Point of Care [address] [place] [address] HISTORY AND PHYSICAL Observed: 04/11/2018 Status: F Source: [place] EXAM 8:24 PM [facility] REPOSITORY [facility] Medical Records Department [address] [place] [address] History and Physical 04/11/18 1706 MR#: [id number] Acct: [id number] Name: DEBBY BAILON Rep #: [id number] : 1980 37 From: Megan Clark TRAIN EXAMINER-C PCP: Will Dietz MD Status: ADM OLEG Y Location: [place] [address] <Megan Clark - Last Filed: 04/11/18 17:54> [...] in future 13 Jan Re-admitted consult dictated History of Present Illness [...] ventral hernia repair. Psychiatric History: Anxiety, Depression TOOTH POLISHER History: No pertinent TOOTH POLISHER history Lives: Spouse/ Significant Other Smoking Status: [...] has not moved her bowels Code Visit OBSNancy RODRIGUEZ: [id number] Initial observation care L3 04/11/181754 <Electronically signed by Megan Clark TRAIN EXAMINER-C> Date Megan Clark TRAIN EXAMINER-C 04/11/182023<Electronically signed by Sita Chung MD> Cosigner Signature: Date (if applicable) Sita Chung MD CC: TRAIN EXAMINER-C Megan Clark; Sita Chung MD; Will Dietz MD Signed EMERGENCY DEPARTMENT Observed: 04/11/2018 Status: F Source: [place] SUMMARY 5:53 PM [facility] REPOSITORY [facility] Medical Records Department [address] [place] [address] Emergency Department Summary 04/11/18 1536 MR#: [id number] Acct: [id number] Name: DEBBY BAILON Rep #: [id number] : 1980 37 From: Makeznie Wood MD PCP: Will Dietz MD Status: [...] spina bifida This note was generated with Schvey dictation software. It may contain incorrect words, [...] your Primary Care Provider. Call [facility] ([phone]) or report to the closest Emergency Room. Call 911 if necessary. 04/11/18 5773 <Electronically signed by Makenzie Wood MD> Date Makenzie Wood MD Cosigner Signature (If Indicated): Date CC: Will Dietz MD ABD INC DECUB Observed: 04/11/2018 Status: F Source: [place] AND/OR ERECT 3:36 PM [facility] REPOSITORY [facility] Imaging Services [address] [place] [address] [employer] Decub and/or Erect MR#: [id number] Acct: [id number] Name: DEBBY BAILON Rep #: [id number] : 1980 F 37 From: Severino Aguilar MD PCP: Will Dietz MD Status: REG ER Study: Abd Inc Decub and/or Erect Date of Exam: 04/11/18 Exam# [id number] Ordering Dr: Makenzie Wood MD STUDY: X-RAY [...] CC: Will Dietz MD; Makenzie Wood MD Sketcher: Signed URINALYSIS, COMPLETE Collected: 04/11/2018 Status: F Source: [place] 3:05 PM [facility] REPOSITORY Order Comment: How was Urine Obtained? LINE REPAIRER TOWER TO SPECIFY TYPE CODE TESTS RESULT OUT [...] URINE SEEN Performed By: #### L400.0001 #### [facility] [address] [place], [address] CBC W/DIFF, AUTOMATED Collected: 04/11/2018 Status: F Source: [place] 1:45 PM [facility] REPOSITORY TYPE CODE TESTS RESULT OUT OF [...] Lymph 1.43 Performed By: #### L100.0100 #### [facility] [address] [place], [address] BASIC METABOLIC Collected: 04/11/2018 Status: F Source: [place] PROFILE (BMP) 1:45 PM [facility] REPOSITORY TYPE CODE TESTS RESULT OUT OF [...] GAP 11 Performed By: #### L500.2500 #### [facility] [address] [place], [address] ,SERUM,HCG QUALI. Collected: Status: F Source: [place]MA 04/11/2018 1:45 PM [facility] REPOSITORY TYPE CODE TESTS RESULT OUT OF REFERENCE UNITS RANGE LAB L700.7000 0-9 Nonpreg Negative Normal HCGSQUAL NEGATIVE LAB L700.6700 =>Qualitative mIU/mL Normal HCG Qual < 1 triggr Performed By: #### L700.6800 #### [facility] [address] [place], [address] THYROID STIM HORMONE Collected: 04/11/2018 Status: F Source: [place] (TSH) 1:45 PM [facility] REPOSITORY Order Comment: Comments: as add on test TYPE CODE TESTS RESULT OUT OF RANGE REFERENCE UNITS LAB L501.9520 0.358-3.74 uIU/mL Normal TSH 1.00 Performed By: #### L501.9520 #### [facility] [address] [place], [address] EMERGENCY DEPARTMENT Observed: 04/09/2018 Status: F Source: NORAM SUMMARY 3:38 PM [facility] REPOSITORY [facility] Medical Records Department [address] [place] [address] Emergency Department Summary 04/09/18 1529 MR#: [id number] Acct: [id number] Name: DEBBY BAILON Rep #: [id number] : 1980 37 From: Kristen Ohara MD [...] advised to follow-up with her surgeon at [facility] as well as her primary care physician. Advised return to ED if worsening complaints. Disposition: Discharge home Impression: Abdominal pain This note was generated with Schvey dictation software. It may contain incorrect words, [...] problems, contact your Primary Care Provider. Call [facility] ([phone]) or report to the closest Emergency Room. Call 911 if necessary. 04/09/18 7230 <Electronically signed by Kristen Ohara MD> Date Kristen Ohara MD Cosigner Signature (If Indicated): Date CC: Will Dietz MD DISCHARGE INSTRUCTION Observed: 04/09/2018 Status: F Source: [place]MA 3:38 PM [facility] REPOSITORY [facility] Medical Records Department [address] [place] [address] Discharge Instruction 04/09/181537 MR#: [id number] Acct: [id number] Name: DEBBY BAILON Rep #: [id number] : 1980 37 From: Kristen Ohara MD [...] your Primary Care Provider. Call [facility] ([phone]) or report to the closest Emergency Room. Call 911 if necessary. 04/09/181537 <Electronically signed by Kristen Ohara MD> Date Kristen Ohara MD Cosigner Signature (If Indicated): Date CC: Will Dietz MD Observed: 04/09/2018 Status: F Source: [place] STOOL OCCULT BLOOD 2:40 PM [facility] IFOB REPOSITORY [facility] iFOB Occult Blood Negative Performed By: #### M100.7900 #### [facility] [address] [facility] [place], [address] URINALYSIS, COMPLETE Collected: 04/09/2018 Status: F Source: [place]MA 1:30 PM [facility] REPOSITORY Order Comment: Order Date: 04/09/18 How [...] URINE SEEN Performed By: #### L400.0001 #### [facility] [address] [facility] [place], [place], [address] ABDOMEN SINGLE VIEW Observed: 04/09/2018 Status: F Source: [place]MA (PORTABLE) 1:06 PM [facility] REPOSITORY [facility] Imaging Services [address] [place] [address] Abdomen Single View (Portable) MR#: [id number] Acct: [id number] Name: DEBBY BAILON Rep #: [id number] : 1980 F 37 From: Stephan Sood MD PCP: Will Dietz MD Status: REG ER Study: Abdomen Single View (Portable) Date of Exam: 04/09/18 Exam# [id number] Ordering Dr: Kristen Ohara MD STUDY: X-RAY [...] Stephan Sood MD at 14:01 EST Tel [phone], Service support , CC: Kristen Ohara MD; Will Dietz MD Sketcher: Signed ABDOMEN/PELVIS W IV CONT Observed: 04/09/2018 Status: F Source: [place]MA ONLY 1:06 PM [facility] REPOSITORY [facility] Imaging Services [address] [place] [address] Abdomen/Pelvis W IV Cont ONLY MR#: [id number] Acct: [id number] Name: DEBBY BAILON Rep #: [id number] : 1980 F 37 From: Stephan Sood MD PCP: Will Dietz MD Status: REG ER Study: Abdomen/Pelvis W IV Cont ONLY Date of Exam: 04/09/18 Exam# [id number] Ordering Dr: Kristen Ohara MD STUDY: CT [...] Stephan Sood MD at 14:44 EST Tel [phone], Service support , CC: Kristen Ohara MD; Will Dietz MD Sketcher: Signed CBC W/DIFF, AUTOMATED Collected: 04/09/2018 Status: F Source: [place] 1:00 PM [facility] REPOSITORY TYPE CODE TESTS RESULT OUT OF [...] Lymph 2.14 Performed By: #### L100.0100 #### [facility] [address] [address] [place], [place], [address] COMPREHENSIVE METABOLIC Collected: 04/09/2018 Status: F [facility] PM [facility] REPOSITORY TYPE CODE TESTS RESULT OUT OF [...] 10 Performed By: #### L500.4050, L501.2450 #### [facility] [address] [place], [address] LIPASE Collected: 04/09/2018 Status: F Source: [place]MA 1:00 PM [facility] REPOSITORY TYPE CODE TESTS RESULT OUT OF RANGE REFERENCE UNITS LAB L501.2450 73-393 U/L Normal LIPASE 134 Performed By: #### L500.4050, L501.2450 #### [facility] [address] [place], [address] ,SERUM,HCG QUALI. Collected: Status: F Source: [place] 04/09/2018 1:00 PM [facility] REPOSITORY TYPE CODE TESTS RESULT OUT OF REFERENCE UNITS RANGE LAB L700.6700 =>Qualitative mIU/mL Normal HCG Qual < 1 triggr LAB L700.7000 0-9 Nonpreg Negative Normal HCGSQUAL NEGATIVE Performed By: #### L700.6800 #### [facility] [address] [place], [address] PROGRESS Observed: 04/04/2018 Status: COMPLETED Source: [place] 4:08 PM [facility] REPOSITORY HNO ID: [id number] Author: Will Dietz Service: (none) Author Type: [...] soft. Has not contacted Dr. Diaz from [facility] who did this since not sure [...] DM (diabetes mellitus), secondary, uncontrolled, w/renal complications ([facility]) 12/05/2017 - Dysthymic disorder Depression (non-psychotic), sees TRAIN EXAMINER at [facility]. - History of kidney stones 01/04/2016 - [...] 02/12/2015 - Neurogenic bowel 01/06/2016 - Neuropathy ([facility]) 02/12/2015 post back surgery with secondary infection. Seeing Dr. Gregg - Numbness and tingling of left arm and leg 08/07/2013 - Panic attacks - Paroxysmal SVT (supraventricular tachycardia) ([facility]) 07/03/2017 Per 48 Hr event monitor 06/30/2017 [...] mouth as needed. Blood-Glucose Meter (ACCU-CHEK ANISH) [facility] [place] 1 meter kit. 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 Has not contacted Dr. Diaz from [facility] who did this since not sure [...] DM (diabetes mellitus), secondary, uncontrolled, w/renal complications ([facility]) 12/05/2017 - Dysthymic disorder Depression (non-psychotic), sees TRAIN EXAMINER at [facility]. - History of kidney stones 01/04/2016 - [...] 02/12/2015 - Neurogenic bowel 01/06/2016 - Neuropathy ([facility]) 02/12/2015 post back surgery with secondary infection. Seeing Dr. Gregg - Numbness and tingling of left arm and leg 08/07/2013 - Panic attacks - Paroxysmal SVT (supraventricular tachycardia) ([facility]) 07/03/2017 Per 48 Hr event monitor 06/30/2017 [...] mouth as needed. Blood-Glucose Meter (ACCU-CHEK ANISH) [facility] [place] 1 meter kit. 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 Referring Provider: WILL DIETZ [[id number]] Allergies As of Date: 04/04/2018 Noted Allergy [...] abdominal location [R10.9] Order(s):CT ABD/PEL W IVCON [[id number]] Order #: [id number] FUTURE iv contrast (will be provided with [...] EachRfl: 0 [place]MA CREATININE [SQWCRET] Order #: [id number] FUTURE busPIRone (BUSPAR) 15 mg tabletTake 1/2 [...] and lower extr*INVALID FOR*01/06/2016 Priority: D Lipomeningocele ([facility]) [Q05.9] INVALID FOR* Priority: B Lumbago [M54.5] INVALID FOR* Priority: M Neuropathy ([facility]) [G62.9] INVALID FOR* Priority: A More... Morbid obesity ([facility]) [E66.01] INVALID FOR* Priority: B Chronic pain [G89.29] INVALID FOR* Priority: M Neurogenic bladder [N31.9] INVALID FOR* Priority: B Hydronephrosis, right [N13.30] INVALID FOR* Priority: C History of kidney stones [Z87.442] INVALID FOR* Priority: C Spina bifida ([facility]) [Q05.9] INVALID FOR* Priority: B More... Neurogenic bowel [K59.2] INVALID FOR* Priority: B Primary insomnia [F51.01] INVALID FOR* Priority: A Type 2 diabetes mellitus with proteinuria ([facility])*INVALID FOR* Priority: A Pyelonephritis [N12] INVALID FOR* Diabetic eye exam ([facility]) [Z01.00, E11.9] INVALID FOR* Priority: A More... Migraine without aura and without status migrai*INVALID FOR*02/28/2018 Priority: A Type 2 diabetes mellitus with albuminuria ([facility])*INVALID FOR* Priority: A Well adult exam [Z00.00] [...] 04/04/18 ANDREW Observed: 03/27/2018 Status: COMPLETED Source: [place] 12:00 AM [facility] REPOSITORY Telephone (PHMEWO) UVALDODEBBY Colette ([id number]) 1980 F Date Time Provider Department 03/27/18 COSME (PHARMACIST)SANDRA During your visit today, we recorded the following information about you: DWAYNE RUTLEDGE 03/27/2018 4:43 PM Signed Contacted patient in attempt to reschedule missed appointment today. Phone message states it is not accepting calls at this time. Sandra Aguiar, PharmD, BCPS DWAYNE RUTLEDGE 04/02/2018 12:29 PM Signed Second attempt made. Still not accepting calls. Allergies As of Date: 03/27/2018 Noted Allergy Reaction MUSHROOM 06/10/2016 10 - Anaphylaxis PEANUTS 06/10/2016 10 - Anaphylaxis MRI CONTRAST (GADOLINIUM-CONTAINI*01/03/2017 8 - GI Upset Date Reviewed: 03/07/2018 Reviewed by: Myles Higgins - Fully Assessed Reason for Visit: Missed [...] and lower extr*INVALID FOR*01/06/2016 Priority: D Lipomeningocele ([facility]) [Q05.9] INVALID FOR* Priority: B Lumbago [M54.5] INVALID FOR* Priority: M Neuropathy ([facility]) [G62.9] INVALID FOR* Priority: A More... Morbid obesity ([facility]) [E66.01] INVALID FOR* Priority: B Chronic pain [G89.29] INVALID FOR* Priority: M Neurogenic bladder [N31.9] INVALID FOR* Priority: B Hydronephrosis, right [N13.30] INVALID FOR* Priority: C History of kidney stones [Z87.442] INVALID FOR* Priority: C Spina bifida ([facility]) [Q05.9] INVALID FOR* Priority: B More... Neurogenic bowel [K59.2] INVALID FOR* Priority: B Primary insomnia [F51.01] INVALID FOR* Priority: A Type 2 diabetes mellitus with proteinuria ([facility])*INVALID FOR* Priority: A Pyelonephritis [N12] INVALID FOR* Diabetic eye exam ([facility]) [Z01.00, E11.9] INVALID FOR* Priority: A More... [...] FOR* Priority: C Encounter Status:Closed by COSME (PHARMACIST)SANDRA on 03/27/18 SPINE LUMBAR W/WO Observed: 03/23/2018 Status: F Source: [place] CONTRAST 7:13 AM [facility] REPOSITORY [facility] Imaging Services [address] [place] [address] Spine Lumbar W/WO Contrast MR#: [id number] Acct: [id number] Name: DEBBY BAILON Rep #: [id number] : 1980 F 37 From: Jessie Patel MD PCP: Will Dietz MD Status: REG CLI Study: Spine Lumbar W/WO Contrast Date of Exam: 03/23/18 Exam# [id number] Ordering Dr: eCline Fung STUDY: MRI LUMBAR SPINE WITH AND [...] , CC: MARIO Fung; Will Dietz MD Sketcher: Signed EMERGENCY DEPARTMENT Observed: 03/23/2018 Status: F Source: [place] SUMMARY 12:36 AM [facility] REPOSITORY [facility] Medical Records Department [address] [place] [address] Emergency Department Summary 03/22/18 2340 MR#: [id number] Acct: [id number] Name: DEBBY BAILON Rep #: [id number] : 1980 37 From: Kristen Ohara MD [...] knee sprain This note was generated with Schvey dictation software. It may contain incorrect words, [...] your Primary Care Provider. Call [facility] ([phone]) or report to the closest Emergency Room. Call 911 if necessary. 03/23/18 0036 <Electronically signed by Kristen Ohara MD> Date Kristen Ohara MD Cosigner Signature (If Indicated): Date CC: Will Dietz MD DISCHARGE INSTRUCTION Observed: 03/22/2018 Status: F Source: [place] 11:40 PM [facility] REPOSITORY [facility] Medical Records Department [address] [place] [address] Discharge Instruction 03/22/18 2339 MR#: [id number] Acct: [id number] Name: DEBBY BAILON Rep #: [id number] : 1980 37 From: Kristen Ohara MD [...] your Primary Care Provider. Call [facility] ([phone]) or report to the closest Emergency Room. Call 911 if necessary. 03/22/18 1780 <Electronically signed by Kristen Ohara MD> Date Kristen Ohara MD Cosigner Signature (If Indicated): Date CC: Will Dietz MD KNEE 4 OR MORE Observed: 03/22/2018 Status: F Source: [place] VIEWS 11:01 PM [facility] REPOSITORY [facility] Imaging Services [address] [place] [address] Knee 4 or More Views MR#: [id number] Acct: [id number] Name: DEBBY BAILON Rep #: [id number] : 1980 F 37 From: Jessie Patel MD PCP: Will Dietz MD Status: REG ER Study: Knee 4 or More Views Date of Exam: 03/22/18 Exam# [id number] Ordering Dr: Kristen Ohara MD STUDY: X-RAY [...] CC: Kristen Ohara MD; Will Dietz MD Sketcher: Signed 12 LEAD ELECTROCARDIOGRAM Observed: 03/21/2018 Status: F Source: [place] 1:31 PM [facility] REPOSITORY [facility] Cardiovascular Services [address] [place] [address] 12 Lead EKG 03/19/18 2304 MR#: [id number] Acct: [id number] Name: DEBBY BAILON Rep #: [id number] : 1980 37 From: Jayson Alvarez MD [...] Normal sinus rhythm Normal ECG Confirmed by JAYSON ALVAREZ MD ([id number]), society editor LYLA HAY ([id number]) on 03/21/2018 1:31:31 PM Referred By: ISAURA Confirmed By:JAYSON ALVAREZ MD 03/21/18 1331 Date Jayson Alvarez MD CC: Kristen Ohara MD; Will Dietz MD Signed EMERGENCY DEPARTMENT Observed: 03/20/2018 Status: F Source: [place] SUMMARY 4:46 AM [facility] REPOSITORY [facility] Medical Records Department [address] [place] [address] Emergency Department Summary 03/19/18 2258 MR#: [id number] Acct: [id number] Name: DEBBY BAILON Rep #: [id number] : 1980 37 From: Kristen Ohara MD PCP: Will Dietz MD Status: [facility] ER - ER Visit Summary Date of [...] chest pain This note was generated with Schvey dictation software. It may contain incorrect words, [...] problems, contact your Primary Care Provider. Call [facility] ([phone]) or report to the closest Emergency Room. Call 911 if necessary. 03/20/18 0446 <Electronically signed by Kristen Ohara MD> Date Kristen Ohara MD Cosigner Signature (If Indicated): Date CC: Will Dietz MD DISCHARGE INSTRUCTION Observed: 03/20/2018 Status: F Source: [place] 1:59 AM [facility] REPOSITORY [facility] Medical Records Department [address] [place] [address] Discharge Instruction 03/20/188 MR#: [id number] Acct: [id number] Name: DEBBY BAILON Rep #: [id number] : 1980 37 From: Kristen Ohara MD [...] your Primary Care Provider. Call [facility] ([phone]) or report to the closest Emergency Room. Call 911 if necessary. 03/20/18 0159 <Electronically signed by Kristen Ohara MD> Date Kristen Ohara MD Cosigner Signature (If Indicated): Date CC: Will Dietz MD DISCHARGE INSTRUCTION Observed: 03/20/2018 Status: F Source: [place] 1:56 AM [facility] REPOSITORY [facility] Medical Records Department [address] [place] [address] Discharge Instruction 03/20/18 0155 MR#: [id number] Acct: [id number] Name: DEBBY BAILON Rep #: [id number] : 1980 37 From: Kristen Ohara MD [...] problems, contact your Primary Care Provider. Call [facility] [facility] ([phone]) or report to the closest Emergency Room. Call 911 if necessary. 03/20/18 0156 <Electronically signed by Kristen Ohara MD> Date Kristen Ohara MD Cosigner Signature (If Indicated): Date CC: Will Dietz MD CTA CHEST W/WO Observed: 03/20/2018 Status: F Source: [place] CONTRAST 12:16 AM [facility] REPOSITORY [facility] Imaging Services [address] [place] [address] CTA Chest W/WO Contrast MR#: [id number] Acct: [id number] Name: DEBBY BAILON Rep #: [id number] : 1980 F 37 From: Dylan Quintana MD PCP: Will Dietz MD Status: REG ER Study: CTA Chest W/WO Contrast Date of Exam: 03/20/18 Exam# [id number] Ordering Dr: Kristen Ohara MD STUDY: CTA [...] CC: Kristen Ohara MD; Will Dietz MD Sketcher: Signed CBC W/DIFF, AUTOMATED Collected: 03/19/2018 Status: F Source: [place] 11:20 PM [facility] REPOSITORY TYPE CODE TESTS RESULT OUT OF [...] Lymph 2.64 Performed By: #### L100.0100 #### [facility] [address] [place], [address] BASIC METABOLIC Collected: 03/19/2018 Status: F Source: [place] PROFILE (BMP) 11:20 PM [facility] REPOSITORY TYPE CODE TESTS RESULT OUT OF [...] 8 Performed By: #### L500.2500, L501.4010 #### [facility] [address] [facility]. [place], [place], [address] TROPONIN-I Collected: 03/19/2018 Status: F Source: [place] 11:20 PM [facility] REPOSITORY TYPE CODE TESTS RESULT OUT OF RANGE REFERENCE UNITS LAB L501.4010 <0.045 ng/mL Normal < 0.015 TROPONIN-I Result Comment: TROPONIN-I EXPECTED VALUES <0.045 Negative 0.045 - 0.590 Consistent with Cardiac Damage > OR = 0.600 Critical Value Not every elevated troponin is indicative of IA. These values should be used with clinical judgement in examining the patient's clinical picture for diagnosis. To establish a diagnosis of IA versus myocardial injury, there must be a demonstrated rise and/or fall in the troponin values, in addition to ischemic symptoms, EKG changes, new regional wall motion abnormality, and/or angiographical evidence. PLEASE NOTE: REFERENCE RANGES EDITED 17 Performed By: #### L500.2500, L501.4010 #### [facility] [address] [place], [address] D-DIMER QUANTITATIVE Collected: 03/19/2018 Status: F Source: [place] (DVT/PE) 11:20 PM [facility] REPOSITORY TYPE CODE TESTS RESULT OUT OF RANGE REFERENCE UNITS LAB L300.8000 0.27-0.49 FEU/ug/m High alert D-DIMER 0.55 QUANT Result Comment: CRITICAL VALUE VERIFIED. CALLED TO 03/19/18 8107 Molly Jose. RESULTS READ BACK BY SAME . D-Dimer ELEVATED (>0.49): Additional studies and clinical assessments are indicated to conclude diagnosis of: Deep Vein Thrombosis (DVT) or Pulmonary Embolism (PE) Performed By: #### L300.8000 #### [facility] [address] [place], [address] ,SERUM,HCG QUALI. Collected: Status: F Source: [place] 03/19/2018 11:20 PM [facility] REPOSITORY TYPE CODE TESTS RESULT OUT OF REFERENCE UNITS RANGE LAB L700.6700 =>Qualitative mIU/mL Normal HCG Qual < 1 triggr LAB L700.7000 0-9 Nonpreg Negative Normal HCGSQUAL NEGATIVE Performed By: #### L700.6800 #### [facility] [address] [facility] [place], [address] URINALYSIS, COMPLETE Collected: 03/19/2018 Status: F Source: [place] 10:55 PM [facility] REPOSITORY Order Comment: How was Urine Obtained? [...] URINE SEEN Performed By: #### L400.0001 #### [facility] [address] [facility] [place], [address] CHEST 1 VIEW Observed: 03/19/2018 Status: F Source: [place] (PORTABLE) 10:52 PM [facility] REPOSITORY [facility] Imaging Services [address] [place] [address] Chest 1 View (Portable) MR#: [id number] Acct: [id number] Name: DEBBY BAILON Rep #: [id number] : 1980 F 37 From: Jessie Patel MD PCP: Will Dietz MD Status: REG ER Study: Chest 1 View (Portable) Date of Exam: 03/19/18 Exam# [id number] Ordering Dr: Kristen Ohara MD STUDY: X-RAY [...] CC: Kristen Ohara MD; Will Dietz MD Sketcher: Signed ABDOMEN/PELVIS WITHOUT Observed: 03/19/2018 Status: F Source: [place] CONT 10:52 PM [facility] REPOSITORY [facility] Imaging Services [address] [place] [address] Abdomen/Pelvis without Cont MR#: [id number] Acct: [id number] Name: DEBBY BAILON Rep #: [id number] : 1980 F 37 From: Dylan Quintana MD PCP: Will Dietz MD Status: REG ER Study: Abdomen/Pelvis without Cont Date of Exam: 03/19/18 Exam# [id number] Ordering Dr: Kristen Ohara MD STUDY: CT [...] CC: Kristen Ohara MD; Will Dietz MD Sketcher: Signed NM CARDIAC PERF Observed: 03/15/2018 Status: F Source: [place] STRESS/PHARM 11:38 AM [facility] REPOSITORY * * *Final Report* * * [...] 60 minutes later. See administered doses below. [facility] Date of service: 03/15/2018 7:22:30 AM [...] cavity size is unchanged with stress. Final Sketcher: RADHA Transcribe Date/Time: Mar 15 2018 7:22A Dictated by : JOESPH CALLOWAY MD This examination was interpreted and the report reviewed and electronically signed by: JOESPH CALLOWAY MD on Mar 15 2018 12:37PM EST [id number] Observed: 03/15/2018 Status: COMPLETED Source: [place] 10:22 AM [facility] REPOSITORY HNO ID: [id number] Author: Renata Lubin Service: (none) Author Type: [...] POST EXAM PIV STATUS: Discontinued PROCEDURE TYPE: MN Stress: 16mCi Gd18d-Kffvttf was administered IV for Rest Imaging at 08:15 by sima Rolon. 44.1 mCi Tc99m- Myoview was administered IV for Stress Imaging at 09:50 by sima Rolon. ADMINISTRATION TIME: PATIENT DISCHARGED TO: Ambulatory patient, left NM department area. A Diagnostic radioactive procedure has taken place, with no further precautions necessary other than routine body substance precautions. More information regarding radiation safety can be found using this link: [email or web address] SIGNATURE: Renata Lubin PATIENT NAME: Debby Bailon DATE: March 15, 2018 TIME: 10:23 AM PAGER/CONTACT #: PROGRESS Observed: 03/15/2018 Status: COMPLETED Source: [place] 9:58 AM [facility] REPOSITORY HNO ID: [id number] Author: Isis Fletcher (Karly Alaniz Service: (none) Author Type: Retail Account Specialist Type: Progress Notes Filed: 03/15/2018 9:59 AM Note Text: Preliminary report complete; results under imaging tab. T. DAGO Fall CNOV Observed: 03/15/2018 Status: COMPLETED Source: [place] 9:00 AM [facility] REPOSITORY Office Visit (CAWSTR) DEBBY BAILON ([id number]) 1980 F Date Time Provider Department 03/15/18 9:00 AM RAMANA ALANIZ ([facility]) PETE During your visit today, we recorded the following information about you: DAGO Wallace 03/15/2018 9:59 AM Signed Preliminary report complete; results under imaging tab. DAGO Wallace Referring Provider: WILL DIETZ [[id number]] Allergies As of Date: 03/15/2018 Noted Allergy Reaction MUSHROOM 06/10/2016 10 - Anaphylaxis PEANUTS 06/10/2016 10 - Anaphylaxis MRI CONTRAST (GADOLINIUM-CONTAINI*01/03/2017 8 - GI Upset Date Reviewed: 03/07/2018 Reviewed by: Romel) Ronaldo - Fully Assessed Visit Diagnosis:Dyspnea on exertion [R06.09] Order(s):NM CARDIAC PERF STRESS/PHARM [[id number]] Order #: [id number] Prescriptions as of 03/15/2018 Sig: PREGABALIN 25 [...] and lower extr*INVALID FOR*01/06/2016 Priority: D Lipomeningocele (FORM[facility]LY [facility]) [Q05.9] INVALID FOR* Priority: B Lumbago [M54.5] INVALID FOR* Priority: M Neuropathy (FORM[facility]) [G62.9] INVALID FOR* Priority: A More... Morbid obesity (FORM[facility]) [E66.01] INVALID FOR* Priority: B Chronic pain [G89.29] INVALID FOR* Priority: M Neurogenic bladder [N31.9] INVALID FOR* Priority: B Hydronephrosis, right [N13.30] INVALID FOR* Priority: C History of kidney stones [Z87.442] INVALID FOR* Priority: C Spina bifida (FORM[facility]LY [facility]) [Q05.9] INVALID FOR* Priority: B More... Neurogenic bowel [K59.2] INVALID FOR* Priority: B Primary insomnia [F51.01] INVALID FOR* Priority: A Type 2 diabetes mellitus with proteinuria (FORM[facility]LY [facility])*INVALID FOR* Priority: A Pyelonephritis [N12] INVALID FOR* Diabetic eye exam (FORM[facility]LY [facility]) [Z01.00, E11.9] INVALID FOR* Priority: A More... [...] 03/15/18 CNNURSE Observed: 03/15/2018 Status: COMPLETED Source: [place] 9:00 AM [facility] REPOSITORY Nurse Visit (CAWSTR) DEBBY BAILON ([id number]) 1980 F Date Time Provider Department 03/15/18 9:00 AM NURSE CARD [facility]MIN [facility] CAWSTR During your visit today, we recorded the following information about you: Marycruz Leroy RN 03/15/2018 11:00 AM Signed lexiscan 0.4mg/5ml given over 10 second IV push. Lot number [id number], exp date 03-07-2021. Patient tolerated injection well. Marycruz Leroy RN Referring Provider: WILL DIETZ [[id number]] Allergies As of Date: 03/15/2018 Noted Allergy [...] and lower extr*INVALID FOR*01/06/2016 Priority: D Lipomeningocele (FORM[facility]) [Q05.9] INVALID FOR* Priority: B Lumbago [M54.5] INVALID FOR* Priority: M Neuropathy ([facility]) [G62.9] INVALID FOR* Priority: A More... Morbid obesity ([facility]) [E66.01] INVALID FOR* Priority: B Chronic pain [G89.29] INVALID FOR* Priority: M Neurogenic bladder [N31.9] INVALID FOR* Priority: B Hydronephrosis, right [N13.30] INVALID FOR* Priority: C History of kidney stones [Z87.442] INVALID FOR* Priority: C Spina bifida (FORM[facility]) [Q05.9] INVALID FOR* Priority: B More... Neurogenic bowel [K59.2] INVALID FOR* Priority: B Primary insomnia [F51.01] INVALID FOR* Priority: A Type 2 diabetes mellitus with proteinuria (FORM[facility])*INVALID FOR* Priority: A Pyelonephritis [N12] INVALID FOR* Diabetic eye exam (FORM[facility]) [Z01.00, E11.9] INVALID FOR* Priority: A More... Migraine without aura and without status migrai*INVALID FOR*02/28/2018 Priority: A Type 2 diabetes mellitus with albuminuria (FORM[facility])*INVALID FOR* Priority: A Well adult exam [Z00.00] [...] FOR* Priority: C Visit Notes: >> Marycruz Michael RN [facility] Mar 15, 2018 11:00 AM Status: Signed lexiscan 0.4mg/5ml given over 10 second IV push. Lot number [id number], exp date 03-07-2021. Patient tolerated injection well. Marycruz Leroy RN Encounter Status:Closed by MARYCRUZ LEROY RN on 03/16/18 EMERGENCY DEPARTMENT Observed: 03/14/2018 Status: F Source: [place] SUMMARY 11:19 PM [facility] REPOSITORY [facility] Medical Records Department [address] [place] [address] Emergency Department Summary 03/14/18 1518 MR#: [id number] Acct: [id number] Name: DEBBY BAILON Rep #: [id number] : 1980 37 From: Oni Dunlap MD PCP: Will Dietz MD Status: DEP ER - ER Visit Summary Date of Service: 03/14/18 Chief Complaint: Dysuria History of Present Illness: The patient is a [address] Dietz and her urologist is Dr. Sears in [place]. She has a history of spina bifida [...] condition. Impression: 1. UTI. 2. Hyperglycemia with ubv-cmalrof-vcivpipkt diabetes mellitus. 3. Spina bifida with neurogenic bladder. This note was generated with Schvey dictation software. It may contain incorrect words, [...] problems, contact your Primary Care Provider. Call [facility] ([phone]) or report to the closest Emergency Room. Call 911 if necessary. 03/14/18 4862 <Electronically signed by Oni Dunlap MD> Date Oni Dunlap MD Cosigner Signature (If Indicated): Date CC: Will Dietz MD CBC W/DIFF, AUTOMATED Collected: 03/14/2018 Status: F Source: [place] 3:30 PM [facility] REPOSITORY TYPE CODE TESTS RESULT OUT OF [...] Lymph 2.17 Performed By: #### L100.0100 #### [facility] [address] [place], [address] BASIC METABOLIC Collected: 03/14/2018 Status: F Source: [place] PROFILE (BMP) 3:30 PM [facility] REPOSITORY TYPE CODE TESTS RESULT OUT OF [...] GAP 5 Performed By: #### L500.2500 #### [facility] [address] [place], [place], [address] ,SERUM,HCG QUALI. Collected: Status: F Source: [place] 03/14/2018 3:30 PM [facility] REPOSITORY TYPE CODE TESTS RESULT OUT OF REFERENCE UNITS RANGE LAB L700.7000 0-9 Nonpreg Negative Normal HCGSQUAL NEGATIVE LAB L700.6700 =>Qualitative mIU/mL Normal HCG Qual < 1 triggr Performed By: #### L700.6800 #### [facility] [address] [place], [place], [address] URINALYSIS, COMPLETE Collected: 03/14/2018 Status: F Source: [place] 3:25 PM [facility] REPOSITORY Order Comment: Order Date: 03/14/18 How [...] MUCUS, URINE Performed By: #### L400.0001 #### [facility] [address] [place], [address] Observed: 03/14/2018 Status: F Source: [place] CULTURE, URINE 3:25 PM [facility] REPOSITORY Order Date: 03/14/18 Urine Culture ORGANISM 1: Mixed Gram Pos AND Gram Neg Org [place] Count 25,000-50,000 MIX CULTURE Mixed contaminants. Submit a new specimen if indicated. Performed By: #### M100.0650 #### [facility] [address] [place], [address] CNOV Observed: 03/07/2018 Status: COMPLETED Source: [place] 2:20 PM [facility] REPOSITORY Office Visit (FAMPWS) DEBBY BAILON ([id number]) 1980 F Date Time Provider Department 03/07/18 2:20 PM ROMEL HIGGINS) FAMPWS During your visit today, we recorded the following information about you: Temperature Pulse Respiration Blood pressure 97.7 degrees 84/minute 14/minute 112/84 NETTA HIGGINS PA-C 03/07/2018 3:03 PM Signed Chief Complaint Patient presents with: Recheck: patient is here for ER follow up; numbness in feet HPI Debby Alvarenga Uvaldo is a 37 year old female who [...] 12/05/2017 - Dysthymic disorder Depression (non-psychotic), sees TRAIN EXAMINER at [facility]. - History of kidney stones 01/04/2016 - [...] 02/12/2015 - Neurogenic bowel 01/06/2016 - Neuropathy (FORM[facility]LY [facility]) 02/12/2015 post back surgery with secondary infection. Seeing Dr. Gregg - Numbness and tingling of left arm and leg 08/07/2013 - Panic attacks - Paroxysmal SVT (supraventricular tachycardia) (FORMERLY [facility]) 07/03/2017 Per 48 Hr event monitor 06/30/2017 [...] mouth as needed. Blood-Glucose Meter (ACCU-CHEK ANISH) [facility] [place] 1 meter kit. Dx: Other DM [...] and leg [R20.0, R20.2] Order(s):WALKER - FOLDING [[id number]] Order #: [id number] Prescriptions as of 03/07/2018 Sig: PREGABALIN 25 [...] and lower extr*INVALID FOR*01/06/2016 Priority: D Lipomeningocele ([facility]) [Q05.9] INVALID FOR* Priority: B Lumbago [M54.5] INVALID FOR* Priority: M Neuropathy (HCC) [G62.9] INVALID FOR* Priority: A More... Morbid obesity ([facility]) [E66.01] INVALID FOR* Priority: B Chronic pain [G89.29] INVALID FOR* Priority: M Neurogenic bladder [N31.9] INVALID FOR* Priority: B Hydronephrosis, right [N13.30] INVALID FOR* Priority: C History of kidney stones [Z87.442] INVALID FOR* Priority: C Spina bifida ([facility]) [Q05.9] INVALID FOR* Priority: B More... Neurogenic bowel [K59.2] INVALID FOR* Priority: B Primary insomnia [F51.01] INVALID FOR* Priority: A Type 2 diabetes mellitus with proteinuria ([facility])*INVALID FOR* Priority: A Pyelonephritis [N12] INVALID FOR* Diabetic eye exam ([facility]) [Z01.00, E11.9] INVALID FOR* Priority: A More... Migraine without aura and without status migrai*INVALID FOR*02/28/2018 Priority: A Type 2 diabetes mellitus with albuminuria ([facility])*INVALID FOR* Priority: A Well adult exam [Z00.00] [...] 03/07/18 PROGRESS Observed: 03/07/2018 Status: COMPLETED Source: [place] 2:08 PM [facility] REPOSITORY HNO ID: [id number] Author: Romel) Ronaldo Service: (none) Author Type: Physician Geological Aide Type: Progress Notes Filed: 03/07/2018 3:03 PM [...] 12/05/2017 - Dysthymic disorder Depression (non-psychotic), sees TRAIN EXAMINER at [facility]. - History of kidney stones 01/04/2016 - [...] 02/12/2015 - Neurogenic bowel 01/06/2016 - Neuropathy ([facility]) 02/12/2015 post back surgery with secondary infection. Seeing Dr. Gregg - Numbness and tingling of left arm and leg 08/07/2013 - Panic attacks - Paroxysmal SVT (supraventricular tachycardia) ([facility]) 07/03/2017 Per 48 Hr event monitor 06/30/2017 - Primary insomnia 02/17/2016 - Spina bifida (HCC) 01/06/2016 - Thyroid cyst 01/01/2018 Complex right sided cysts. US 12/2017, biopsy per Dr. Josue 01/23/2018 benign. Repeat US in a year. - Type 2 diabetes mellitus with albuminuria ([facility]) 10/18/2016 - Type 2 diabetes mellitus with proteinuria ([facility]) 02/19/2016 - Ulcer of left foot ([facility]) 02/21/2017 - Ventral hernia without obstruction or [...] mouth as needed. Blood-Glucose Meter (ACCU-CHEK ANISH) [facility] [place] 1 meter kit. Dx: Other DM [...] EMERGENCY DEPARTMENT Observed: 03/07/2018 Status: F Source: [place] SUMMARY 1:53 AM [facility] REPOSITORY [facility] Medical Records Department [address] [place] [address] Emergency Department Summary 03/07/18 0036 MR#: [id number] Acct: [id number] Name: DEBBY BAILON Rep #: [id number] : 1980 37 From: Arnold Brice PCP: [...] is enough help at home. 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 Discussed using Tylenol for concussion treatment. Concussion precautions discussed. She does have a follow-up with her neurologist on the . She will keep that appointment. She declined any medications in the ED. Treatment Plan: [] Disposition: Discharge Impression: 1. Concussion without loss of consciousness 2. Multiple falls 3. History of spinal bifida This note was generated with Schvey dictation software. It may contain incorrect words, [...] your Primary Care Provider. Call [facility] ([phone]) or report to the closest Emergency Room. Call 911 if necessary. 03/07/18 0153 <Electronically signed by Arnold Brice> Date Arnold Brice Cosigner Signature (If Indicated): Date CC: Will Dietz MD BRAIN/HEAD WITHOUT Observed: 03/07/2018 Status: F Source: [place] CONTRAST 12:36 AM [facility] REPOSITORY [facility] Imaging Services [address] [place] [address] Brain/Head without Contrast MR#: [id number] Acct: [id number] Name: DEBBY BAILON Rep #: [id number] : 1980 F 37 From: Dylan Quintana MD PCP: Will Dietz MD Status: REG ER Study: Brain/Head without Contrast Date of Exam: 03/07/18 Exam# [id number] Ordering Dr: Arnold Caban DO STUDY: CT [...] , CC: Will Dietz MD; Arnold Caban Sketcher: Signed SPINE CERVICAL Observed: 03/07/2018 Status: F Source: [place] WITHOUT CONTRAS 12:36 AM [facility] REPOSITORY [facility] Imaging Services [address] [place] [address] Spine Cervical without Contras MR#: [id number] Acct: [id number] Name: DEBBY BAILON Rep #: [id number] : 1980 F 37 From: Dylan Quintana MD PCP: Will Dietz MD Status: REG ER Study: Spine Cervical without Contras Date of Exam: 03/07/18 Exam# [id number] Ordering Dr: Arnold Caban DO STUDY: CT [...] , CC: Will Dietz MD; Arnold Caban Sketcher: Signed EMERGENCY DEPARTMENT Observed: 03/03/2018 Status: F Source: [place] SUMMARY 9:07 PM [facility] REPOSITORY [facility] Medical Records Department [address] [place] [address] Emergency Department Summary 03/03/18 2101 MR#: [id number] Acct: [id number] Name: DEBBY BAILON Rep #: [id number] : 1980 37 From: Dre Deal MD [...] 2 diabetes This note was generated with Schvey dictation software. It may contain incorrect words, spelling, and punctuation that were not noted in review of the chart prior to signing ED Disposition - Plan for ED Patient: Disposition: Home or Assisted Living Chief Complaint: Numb/Ting Instructions: ED Contusion Back Prescriptions: Hydrocodone Bitart/Apap 5-325 [Randolph 5MG-325MG] 1 tablet PO Q6H PRN PRN 3 Days #10 tablet PRN Reason: Pain Referrals: Will Dietz MD [Primary Care Provider] - Additional Instructions: Your prescription was electronically transmitted to [facility] your preferred pharmacy. What to do if you have Problems For any increased pain, shortness of breath, bleeding, nausea or vomiting, chest pain, or any unexpected problems, contact your Primary Care Provider. Call [facility] ([phone]) or report to the closest Emergency Room. Call 911 if necessary. 03/03/187 <Electronically signed by Dre Deal MD> Date Dre Deal MD Cosigner Signature (If Indicated): Date CC: Will Dietz MD URINALYSIS, COMPLETE Collected: 03/03/2018 Status: F Source: [place] 6:50 PM [facility] REPOSITORY Order Comment: How was Urine Obtained? LINE REPAIRER TOWER TO SPECIFY TYPE CODE TESTS RESULT OUT [...] URINE SEEN Performed By: #### L400.0001 #### [facility] [address] [place], [address] LUMBAR SPINE 2 OR 3 Observed: 03/03/2018 Status: F Source: [place] VIEWS 5:40 PM [facility] REPOSITORY [facility] Imaging Services [address] [place] [address] Lumbar Spine 2 or 3 Views MR#: [id number] Acct: [id number] Name: DEBBY BAILON Rep #: [id number] : 1980 F 37 From: Malcolm Jaimes MD PCP: Will Dietz MD Status: REG ER Study: Lumbar Spine 2 or 3 Views Date of Exam: 03/03/18 Exam# [id number] Ordering Dr: Dre Deal MD STUDY: X-RAY [...] CC: Will Dietz MD; Dre Deal MD Sketcher: Signed ECG COMPLETE W Observed: 02/28/2018 Status: F Source: [place] INTERPRETATION 8:03 PM [facility] REPOSITORY NAME : DEBBY BAILON PID : [id number] : 1980 Gender : Female Race : ORD : [id number] Procedure Date : Feb 28 2018 20:03:55 Edit Date : Mar 02 2018 15:30:39 Diagnosis:NORMAL SINUS RHYTHM NORMAL ECG Confirmed by CELINE JUAREZ D.O. ([id number]) on 03/02/2018 3:30:30 PM Ventricular Rate : 76 BPM Atrial Rate : 76 BPM P-R Interval : 140 ms QRS Duration : 76 ms Q-T Interval : 400 ms QTC Calculation(Bezet) : 450 ms P [place] : 11 degrees R [place] : 22 degrees T [place] : 19 degrees Test Reason : Location : 185 : [facility] Overread By : CELINE JUAREZ D.O. Edited By : CELINE JUAREZ D.O. Referred By : WILL DIETZ Acquired by : DESTIN, PROGRESS Observed: 02/28/2018 Status: COMPLETED Source: [place] 7:19 PM [facility] REPOSITORY HNO ID: [id number] Author: Will Dietz Service: (none) Author Type: [...] 12/05/2017 - Dysthymic disorder Depression (non-psychotic), sees TRAIN EXAMINER at [facility]. 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 - History of kidney stones 01/04/2016 - [...] 02/12/2015 - Neurogenic bowel 01/06/2016 - Neuropathy ([facility]) 02/12/2015 post back surgery with secondary infection. Seeing Dr. Gregg - Numbness and tingling of left arm and leg 08/07/2013 - Panic attacks - Paroxysmal SVT (supraventricular tachycardia) ([facility]) 07/03/2017 Per 48 Hr event monitor 06/30/2017 - Primary insomnia 02/17/2016 - Spina bifida ([facility]) 01/06/2016 - Thyroid cyst 01/01/2018 Complex right sided cysts. US 12/2017, biopsy per Dr. Josue 01/23/2018 benign. Repeat US in a year. - Type 2 diabetes mellitus with albuminuria ([facility]) 10/18/2016 - Type 2 diabetes mellitus with proteinuria ([facility]) 02/19/2016 - Ulcer of left foot (HCC) [...] to 7 days. Blood-Glucose Meter (ACCU-CHEK ANISH) [facility] [place] 1 meter kit. 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 - History of kidney stones 01/04/2016 - [...] 02/12/2015 - Neurogenic bowel 01/06/2016 - Neuropathy ([facility]) 02/12/2015 post back surgery with secondary infection. Seeing Dr. Gregg - Numbness and tingling of left arm and leg 08/07/2013 - Panic attacks - Paroxysmal SVT (supraventricular tachycardia) ([facility]) 07/03/2017 Per 48 Hr event monitor 06/30/2017 - Primary insomnia 02/17/2016 - Spina bifida (HCC) 01/06/2016 - Thyroid cyst 01/01/2018 Complex right sided cysts. US 12/2017, biopsy per Dr. Josue 01/23/2018 benign. Repeat US in a year. - Type 2 diabetes mellitus with albuminuria ([facility]) 10/18/2016 - Type 2 diabetes mellitus with [...] to 7 days. Blood-Glucose Meter (ACCU-CHEK ANISH) [facility] [place] 1 meter kit. 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 Referring Provider: WILL DIETZ [[id number]] Allergies As of Date: 02/28/2018 Noted Allergy [...] TO [facility] [19990804] Order #: [id number]: 1 NM CARDIAC PERF STRESS/PHARM [[id number]] Order #: [id number] IV START - SPECIFY [2309799] Order #: [id number]: 1 IV DISCONTINUE [5108425] Order #: [id number]: 1 regadenoson (LEXISCAN) 0.4 mg/5 mL syrgInject 5 mL intravenously one time only for 1 dose. Give IV push over 10 seconds and follow with 5 ml of normal salineDisp: 5 mLRfl: 0 UA DIP B/O [[id number]] Order #: [id number] COMP METABOLIC PANEL [SQCMP] Order #: [id number] FUTURE HGB A1C [YMGYJ4N] Order #: [id number] FUTURE ALBUMIN/CREAT RATIO RND UR [SQUACR] Order #: [id number] FUTURE LIPID PANEL, NONFASTING [SQLIPNF] Order #: [id number] FUTURE ECG COMPLETE W INTERPRETATION [ECG01] Order #: [id number] FUTURE Prescriptions as of 02/28/2018 Sig: ATORVASTATIN [...] EMERGENCY DEPARTMENT Observed: 02/26/2018 Status: F Source: [place] SUMMARY 2:47 AM [facility] REPOSITORY [facility] Medical Records Department [address] [place] [address] Emergency Department Summary 02/25/18 2249 MR#: [id number] Acct: [id number] Name: DEBBY BAILON Rep #: [id number] : 1980 37 From: Nemesio Sanderson DO [...] Somatoform disorder This note was generated with Schvey dictation software. It may contain incorrect words, [...] your Primary Care Provider. Call [facility] ([phone]) or report to the closest Emergency Room. Call 911 if necessary. 02/26/18 0247 <Electronically signed by Nemesio Sanderson DO> Date Nemesio Sanderson DO Cosigner Signature (If Indicated): Date CC: Will Dietz MD BASIC METABOLIC Collected: 02/25/2018 Status: F Source: [place] PROFILE (BMP) 10:40 PM [facility] REPOSITORY TYPE CODE TESTS RESULT OUT OF [...] GAP 7 Performed By: #### L500.2500 #### [facility] [address] [facility] [place] [place], [address] 12 LEAD ELECTROCARDIOGRAM Observed: 02/21/2018 Status: F Source: [place] 8:36 AM [facility] REPOSITORY [facility] Cardiovascular Services [address] [place] [address] 12 Lead EKG 02/16/18 0940 MR#: [id number] Acct: [id number] Name: DEBBY BAILON Rep #: [id number] : 1980 37 From: Rojas Otaes MD Attending Dr: Status: DEP ER Ordering [...] ECG Confirmed by ROJAS OATES MD ([id number]), society editor LYLA HAY ([id number]) on 02/21/2018 8:35:57 AM Referred By: Celine Fung Confirmed By:ROJAS OATES MD 02/21/18 0835 Date Rojas Oates MD CC: Josue Shaw MD; Will Dietz MD Signed EMERGENCY DEPARTMENT Observed: 02/16/2018 Status: F Source: [place] SUMMARY 12:13 PM [facility] REPOSITORY [facility] Medical Records Department [address] [place] [address] Emergency Department Summary 02/16/18 1209 MR#: [id number] Acct: [id number] Name: DEBBY BAILON Rep #: [id number] : 1980 37 From: Patrice Shaw MD [...] to medication This note was generated with Schvey dictation software. It may contain incorrect words, [...] your Primary Care Provider. Call [facility] ([phone]) or report to the closest Emergency Room. Call 911 if necessary. 02/16/18 1213 <Electronically signed by Patrice Shaw MD> Date Patrice Shaw MD Cosigner Signature (If Indicated): Date CC: Will Dietz MD CHEST PA AND LATERAL Observed: 02/16/2018 Status: F Source: [place] 9:57 AM [facility] REPOSITORY [facility] Imaging Services [address] [place] [address] Chest PA and Lateral MR#: [id number] Acct: [id number] Name: DEBBY BAILON Rep #: [id number] : 1980 F 37 From: Stephan Sood MD PCP: Will Dietz MD Status: REG ER Study: Chest PA and Lateral Date of Exam: 02/16/18 Exam# [id number] Ordering Dr: Patrice Shaw MD STUDY: X-RAY [...] Stephan Sood MD at 11:40 EDT Tel [phone], Service support , CC: Josue Shaw MD; Will Dietz MD Sketcher: Signed CBC W/DIFF, AUTOMATED Collected: 02/16/2018 Status: F Source: [place] 9:45 AM [facility] REPOSITORY TYPE CODE TESTS RESULT OUT OF [...] Lymph 1.80 Performed By: #### L100.0100 #### [facility] [address] [facility]. [place], [place], [address] BASIC METABOLIC Collected: 02/16/2018 Status: F Source: [place] PROFILE ([facility]) 9:45 AM [facility] REPOSITORY TYPE CODE TESTS RESULT OUT OF [...] GAP 9 Performed By: #### L500.2500 #### [facility] [address] [facility] [place] [place], [address] ,SERUM,HCG QUALI. Collected: Status: F Source: [place] 02/16/2018 9:45 AM [facility] REPOSITORY TYPE CODE TESTS RESULT OUT OF REFERENCE UNITS RANGE LAB L700.6700 =>Qualitative mIU/mL Normal HCG Qual < 1 triggr LAB L700.7000 0-9 Nonpreg Negative Normal HCGSQUAL NEGATIVE Performed By: #### L700.6800 #### [facility] [address] [place], [address] DISCHARGE INSTRUCTION Observed: 02/14/2018 Status: F Source: [place] 4:38 PM [facility] REPOSITORY [facility] Medical Records Department [address] [place] [address] Discharge Instruction 02/14/18 1637 MR#: [id number] Acct: [id number] Name: DEBBY BAILON Rep #: [id number] : 1980 37 From: Irvin Goldberg DO [...] problems, contact your Primary Care Provider. Call [facility] ([phone]) or report to the closest Emergency Room. Call 911 if necessary. 02/14/18 1638 <Electronically signed by Irvin Goldberg DO> Date Ivrin Goldberg DO Cosigner Signature (If Indicated): Date CC: Will Dietz MD EMERGENCY DEPARTMENT Observed: 02/14/2018 Status: F Source: [place] SUMMARY 4:37 PM [facility] REPOSITORY [facility] Medical Records Department [address] [place] [address] Emergency Department Summary 02/14/18 1632 MR#: [id number] Acct: [id number] Name: DEBBY BAILON Rep #: [id number] : 1980 37 From: Irvin Goldberg DO [...] rebound or rigidity, no peritoneal signs. Neuro yqbf-upwnlz-rteg and heel mcdonald testing within normal limits, [...] [Headache-suspect migraine] This note was generated with Schvey dictation software. It may contain incorrect words, [...] problems, contact your Primary Care Provider. Call [facility] ([phone]) or report to the closest Emergency Room. Call 911 if necessary. 02/14/18 2150 <Electronically signed by Irvin Goldberg DO> Date Irvin Goldberg DO Cosigner Signature (If Indicated): Date CC: Will Dietz MD BRAIN/HEAD WITHOUT Observed: 02/14/2018 Status: F Source: [place] CONTRAST 3:19 PM [facility] REPOSITORY [facility] Imaging Services [address] [place] [address] Brain/Head without Contrast MR#: [id number] Acct: [id number] Name: DEBBY BAILON Rep #: [id number] : 1980 F 37 From: José Luis Birmingham DO PCP: Will Dietz MD Status: REG ER Study: Brain/Head without Contrast Date of Exam: 02/14/18 Exam# [id number] Ordering Dr: Irvin Goldberg DO STUDY: CT [...] interval change. Electronically Signed: José Luis Birmingham at 16:26 EDT Tel [phone], Service support , CC: Will Dietz MD; Irvin Goldberg DO Sketcher: Signed URINALYSIS, COMPLETE Collected: 02/14/2018 Status: F Source: [place] 1:20 PM [facility] REPOSITORY Order Comment: Has pt arrived? Y [...] URINE SEEN Performed By: #### L400.0001 #### [facility] [address] [place], [address] ,SERUM,HCG QUALI. Collected: Status: F Source: [place] 02/14/2018 1:20 PM [facility] REPOSITORY TYPE CODE TESTS RESULT OUT OF REFERENCE UNITS RANGE LAB L700.7000 0-9 Nonpreg Negative Normal HCGSQUAL NEGATIVE LAB L700.6700 =>Qualitative mIU/mL Normal HCG Qual < 1 triggr Performed By: #### L700.6800 #### [facility] [address] [place], [place], [address] URINALYSIS WITH Collected: 02/13/2018 Status: F Source: [facility] 9:58 AM [facility] REPOSITORY TYPE CODE TESTS RESULT OUT OF RANGE REFERENCE UNITS LAB UCOL Yellow Color Yellow LAB [facility] Clear Clarity Clear LAB UGLUC Negative mg/dL Glucose, Abnormal Urine >=500 Alert LAB UBIL Negative Bilirubin, Urine Negative LAB UKET Negative Ketones, Urine Negative LAB USPG 1.005-1.030 Specific [place], Ur 1.009 LAB UHGB Negative Hemoglobin/Blood, Negative [...] Epithelial Cells Performed By: #### UAWMIC #### [facility] [employer] [address] [place] [address] ALBUMIN/CREAT RATIO Collected: 02/13/2018 Status: F Source: [place] 9:58 AM [facility] REPOSITORY TYPE CODE TESTS RESULT OUT OF [...] 1995, 25:107) Performed By: #### UACR #### [facility] [address] [place], [place] [address] HEMOGLOBIN A1C Collected: 02/13/2018 Status: F Source: [place] 9:42 AM [facility] REPOSITORY TYPE CODE TESTS RESULT OUT OF REFERENCE UNITS RANGE LAB HGBA1C 4.3-5.6 % High Hemoglobin A1c 8.3 LAB HBA0 mg/dL Est. Average Glucose 192 Result Comment: eAG: (Estimated average glucose) is a calculated value from HgbA1c and is sales representative printing supplies of the average blood glucose level in the last 2-3 month period. Performed By: #### HBA1C, CMP, LIPB #### [facility] [address] [place] [id number] COMP METABOLIC PANEL Collected: 02/13/2018 Status: F Source: [place] 9:42 AM [facility] REPOSITORY TYPE CODE TESTS RESULT OUT OF [...] mg/dL High Glucose 195 Result Comment: The [place] Diabetes Association (ADA) provides guidance for cutoff [...] Standards of Medical Care in Diabetes 2016, [place] Diabetes Association. Diabetes Care. 2016.39(Suppl 1). LAB [...] Performed By: #### HBA1C, CMP, LIPB #### [facility] [address] [place], [place] [address] LIPID PANEL, BASIC Collected: 02/13/2018 Status: F Source: [place] 9:42 AM [facility] REPOSITORY TYPE CODE TESTS RESULT OUT OF [...] Desk Reference: National Heart, Lung, and Blood [place]. National Institutes of Health. 2001: NIH Publication No. 01-3305. 2. An International Atherosclerosis Society position paper: global recommendations for the management of dyslipidemia: executive summary, Atherosclerosis. 2014: 232(2):410-413. Performed By: #### HBA1C, CMP, LIPB #### [facility] [address] [place], [place] [address] INITAL EVALUATION (1) Observed: 02/07/2018 Status: F Source: [place] - PT 1:00 PM [facility] REPOSITORY [facility] [address] [place] [address]. [address] [place] [address] Fax REHABILITATION SERVICES INITIAL EVALUATION MR#: [id number] Acct: [id number] Name: DEBBY BAILON Rep #: [id number] : 1980 37 From: Scott Cho PT, [...] to be FAXED BACK to us at [phone] for Medicare purposes. Please let me know if there are questions or concerns regarding this plan of care. Physician Signature: Date: <Electronically signed by Scott Cho PT, ATC> 02/07/18 1300 CC: MARIO Fung; Will Dietz MD [facility] Signed For Medicare only, by signing this I certify the plan of care. Physicians Signature Date SURGERY VISIT REPORT Observed: 01/30/2018 Status: F Source: [place] 2:27 PM [facility] REPOSITORY [facility] [address] [place] [address] [address] [place] [address] OFFICE VISIT Date of Service: 01/30/18 MR#: [id number] Acct: [id number] Name: DEBBY BAILON Rep #: [id number] : 1980 Provider: Nemesio Josue MD Age/Sex: 37/F Location: [facility] Status: Signed Intake Intake Visit Reasons: 1 wk f/u FNA RT Thyroid Gland Passenger Barge Master Required: No Is patient in pain?: No [...] Nemesio Josue MD> Date [facility] Josue MD [facility] Signature: Date (if applicable) CC: Will Dietz MD EMERGENCY DEPARTMENT Observed: 01/30/2018 Status: F Source: [place] SUMMARY 1:41 PM [facility] Medical Records Department [address] [place] [address] Emergency Department Summary 01/30/18 1338 MR#: [id number] Acct: [id number] Name: DEBBY BAILON Rep #: [id number] : 1980 37 From: Jayson Yost MD [...] Pelvic pain This note was generated with Schvey dictation software. It may contain incorrect words, [...] your Primary Care Provider. Call [facility] ([phone]) or report to the closest Emergency Room. Call 911 if necessary. 01/30/18 1341 <Electronically signed by Jayson Yost MD> Date Jayson Yost MD Cosigner Signature (If Indicated): Date CC: Will Dietz MD CBC W/DIFF, AUTOMATED Collected: 01/30/2018 Status: F Source: [place] 11:44 AM [facility] REPOSITORY TYPE CODE TESTS RESULT OUT OF [...] Lymph 2.10 Performed By: #### L100.0100 #### [facility] [address] [place], [address] COMPREHENSIVE METABOLIC Collected: 01/30/2018 Status: F Source: [place] MICHAUD 11:44 AM [facility] REPOSITORY TYPE CODE TESTS RESULT OUT OF [...] GAP 10 Performed By: #### L500.4050 #### [facility] [address] [place], [address] URINALYSIS, COMPLETE Collected: 01/30/2018 Status: F Source: [place] 11:35 AM [facility] REPOSITORY Order Comment: Order Date: 01/30/18 Has [...] URINE SEEN Performed By: #### L400.0001 #### [facility] [address] [place], [address] PROGRESS Observed: 01/30/2018 Status: COMPLETED Source: [place] 9:57 AM [facility] REPOSITORY HNO ID: [id number] Author: Abbe Naylor (Don) Monty Service: (none) [...] mouth as needed. Blood-Glucose Meter (ACCU-CHEK ANISH) [facility] Dispense 1 meter kit. Dx: Other DM [...] thoracic - Dysthymic disorder Depression (non-psychotic), sees TRAIN EXAMINER at [facility]. 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 Abbe Millan MSN PRODUCTION MACHINE TENDER.HEAD OF ART CNOV Observed: 01/30/2018 Status: COMPLETED Source: [place] 9:40 AM [facility] REPOSITORY Office Visit (FAMPWS) UVALDODEBBY CORRIGAN ([id number]) 1980 F Date Time Provider Department 01/30/18 9:40 AM ABBE MILLAN (TRAIN EXAMINER) FAMPWS During your visit today, we recorded the following information about you: Temperature Pulse Respiration Blood pressure 97.7 degrees 80/minute 20/minute 120/88 Weight 108 kg ROSEMARY Anand PRODUCTION MACHINE TENDER.HEAD OF ART 01/30/2018 10:13 AM Signed Chief Complaint Patient [...] mouth as needed. Blood-Glucose Meter (ACCU-CHEK ANISH) [facility] Dispense 1 meter kit. Dx: Other DM [...] thoracic - Dysthymic disorder Depression (non-psychotic), sees TRAIN EXAMINER at [facility]. 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 Seeing Dr. 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 Abbe Millan, MSN PRODUCTION MACHINE TENDER.HEAD OF ART Referring Provider: ABBE MILLAN (TRAIN EXAMINER) [[id number]] Allergies As of Date: 01/30/2018 Noted Allergy [...] A Type 2 diabetes mellitus with proteinuria ([facility])*INVALID FOR* Priority: A Pyelonephritis [N12] INVALID FOR* Diabetic eye exam ([facility]) [Z01.00, E11.9] INVALID FOR* Priority: A More... Migraine without aura and without status migrai*INVALID FOR* Priority: A Type 2 diabetes mellitus with albuminuria ([facility])*INVALID FOR* Priority: A Well adult exam [Z00.00] INVALID FOR* Priority: E More... Ulcer of left foot ([facility]) [L97.529] INVALID FOR* Priority: M Paroxysmal SVT [...] VISIT REPORT Observed: 01/23/2018 Status: F Source: [place] 8:37 AM [facility] [address] [place] [address] [address] [place], [place] [address] OFFICE VISIT Date of Service: 01/23/18 MR#: [id number] Acct: [id number] Name: DEBBY BAILON Rep #: [id number] : 1980 Provider: Nemesio Josue MD Age/Sex: 37/F Location: [facility] Status: Signed Intake Intake Visit Reasons: FNA Rt Thyroid Gland Passenger Barge Master Required: No Is patient in pain?: No [...] aspiration of dominant right thyroid nodule Surgeon: Joselo Procedure: Ultrasound of the right thyroid gland [...] applied. The patient tolerated the procedure Alert Photoengraving Sketch Maker Alert Billing: Yes FNA 71809 Thyroid Procedure Time Out Time Out Informed [...] Orders: Coding Level of Care Code Attention Photoengraving Sketch Maker Diagnoses Uninodular goiter E04.1 Additional Codes FNA - Fine Needle Aspiration: 80491 Thyroid (86908) 01/23/18 0837 <Electronically signed by Nemesio Josue MD> Date Nemesio Josue MD Cosigner Signature: Date (if applicable) CC: ASP RADIOLOGY (FLUID) Observed: 01/23/2018 Status: F Source: [place] 8:15 AM [facility] REPOSITORY Patient: DEBBY BAILON : 1980 (37/F) Acct Num: [id number] Phys: Nemesio Josue MD Unit Num: [id number] Loc: [facility] Specimen: [id number] Received: 01/23/18 - [...] Submitted for staining. / 01/23/18 TC:5 CPT: 91544, 28445, 76120 CYTOLOGY STUDY Slides are reviewed. DIAGNOSIS CYTOLOGY [...] aspiration, right thyroid (12 slides) Signed Zafar [facility] 01/24/18 <signature on file> Performed By: #### PASPIG #### [facility] [address] [facility]. [place], [place], [address] SURGERY VISIT REPORT Observed: 01/22/2018 Status: F Source: [place] 8:27 AM [facility] REPOSITORY [facility] [address] [place] [address] OFFICE VISIT Date of Service: 01/18/18 MR#: [id number] Acct: [id number] Name: DEBBY BAILON Rep #: [id number] : 1980 Provider: Nemesio Josue MD Age/Sex: 37/F Location: [facility] Status: Signed Intake Vital Signs01/18/18 Height 5 ft 2.5 in 01/18/18 Weight: 235 lb 6 oz 01/18/18 Body Mass Index (BMI) 42.3 01/18/18 Blood Pressure 124/91 Intake Visit Reasons: Thryoid US [facility] 01/01 aware to bring disc Chief Complaint: abn thyroid US Passenger Barge Master Required: No Is patient in pain?: No [...] had a thyroid ultrasound done at the [place] [facility] on January 01, 2018. This showed [...] person, oriented to place, oriented to time [facility] Head: normocephalic, atraumatic Ears: external ears normal [...] Nemesio Josue MD> Date Nemesio Josue MD Cosign Signature: Date (if applicable) CC: Will Dietz MD EMERGENCY DEPARTMENT Observed: 01/21/2018 Status: F Source: [place] SUMMARY 5:28 AM [facility] REPOSITORY [facility] Medical Records Department [address] [place] [address] Emergency Department Summary 01/21/18 0414 MR#: [id number] Acct: [id number] Name: DEBBY BAILON Rep #: [id number] : 1980 37 From: Nemesio Pro MD [...] 1. Dysuria This note was generated with Schvey dictation software. It may contain incorrect words, [...] problems, contact your Primary Care Provider. Call [facility] ([phone]) or report to the closest Emergency Room. Call 911 if necessary. 01/21/18 0528 <Electronically signed by Nemesio Pro MD> Date Nemesio Pro MD Cosigner Signature (If Indicated): Date CC: Will Dietz MD DISCHARGE INSTRUCTION Observed: 01/21/2018 Status: F Source: [place] 5:28 AM [facility] REPOSITORY [facility] Medical Records Department [address] [place] [address] Discharge Instruction 01/21/18 0416 MR#: [id number] Acct: [id number] Name: DEBBY BAILON Rep #: [id number] : 1980 37 From: Nemesio Pro MD [...] your Primary Care Provider. Call [facility] ([phone]) or report to the closest Emergency Room. Call 911 if necessary. 01/21/18 0528 <Electronically signed by Nemesio Pro MD> Date Nemesio Pro MD Cosigner Signature (If Indicated): Date CC: Will Dietz MD URINALYSIS, COMPLETE Collected: 01/21/2018 Status: F Source: [place] 2:20 AM [facility] REPOSITORY Order Comment: Order Date: 01/21/18 Has [...] URINE SEEN Performed By: #### L400.0001 #### [facility] [address] [place], [place], [address] Observed: 01/21/2018 Status: F Source: [place] CULTURE, URINE 2:20 AM [facility] REPOSITORY Order Date: 01/21/18 Urine Culture Below infection level. ORGANISM 1: Mixed Gram Positive Organisms [place] Count 1000-10,000 Performed By: #### M100.0650 #### [facility] [address] [place], [place], [address] CBC W/DIFF, AUTOMATED Collected: 01/21/2018 Status: F Source: [place] 2:07 AM [facility] REPOSITORY TYPE CODE TESTS RESULT OUT OF [...] Lymph 2.70 Performed By: #### L100.0100 #### [facility] [address] [place], [place], [address] BASIC METABOLIC Collected: 01/21/2018 Status: F Source: [place] PROFILE ([facility]) 2:07 AM [facility] REPOSITORY TYPE CODE TESTS RESULT OUT OF [...] GAP 9 Performed By: #### L500.2500 #### [facility] [address] [place], [address] ,SERUM,HCG QUALI. Collected: Status: F Source: [place] 01/21/2018 2:07 AM [facility] REPOSITORY TYPE CODE TESTS RESULT OUT OF REFERENCE UNITS RANGE LAB L700.7000 0-9 Nonpreg Negative Normal HCGSQUAL NEGATIVE LAB L700.6700 =>Qualitative mIU/mL Normal HCG Qual < 1 triggr Performed By: #### L700.6800 #### [facility] [address] [place], [address] ABDOMEN/PELVIS WITHOUT Observed: 01/21/2018 Status: F Source: [place] CONT 2:03 AM [facility] REPOSITORY [facility] Imaging Services [address] [place] [address] Abdomen/Pelvis without Cont MR#: [id number] Acct: [id number] Name: DEBBY BAILON Rep #: [id number] : 1980 F 37 From: Sandra Hay MD PCP: Will Dietz MD Status: REG ER Study: Abdomen/Pelvis without Cont Date of Exam: 01/21/18 Exam# [id number] Ordering Dr: Nemesio Pro MD STUDY: CT [...] congenital megaureter. 3. Hepatic steatosis. Electronically Signed: Sandra Hay MD at 3:04 EDT , Service support , CC: Nemesio Pro MD; Will Dietz MD Sketcher: Signed PROGRESS Observed: 01/15/2018 Status: COMPLETED Source: [place] 1:45 PM [facility] REPOSITORY HNO ID: [id number] Author: Anne Christensen Service: (none) Author Type: [...] thoracic - Dysthymic disorder Depression (non-psychotic), sees TRAIN EXAMINER at [facility]. 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 Seeing Dr. 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 Blood-Glucose Meter (ACCU-CHEK ANISH) [facility] Dispense 1 meter kit. Dx: Other DM [...] 10 days. Dispense: 30 tablet; Refill: 0 nAne Christensen MD PROGRESS Observed: 01/08/2018 Status: COMPLETED Source: [place] 9:44 AM [facility] REPOSITORY HNO ID: [id number] Author: Abbe Naylor (Elastic Assembler) Monty Service: (none) Author Type: Nurse Practitioner [...] with OTC cold and sinus med from [employer] without benefit. Other sx: chills, no documented [...] thoracic - Dysthymic disorder Depression (non-psychotic), sees TRAIN EXAMINER at [facility]. 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 Seeing Dr. Gregg - Numbness and tingling of left arm and leg 08/07/2013 - Panic attacks - Recurrent UTI 11/28/2011 - Spina bifida ([facility]) 01/06/2016 - Type 2 diabetes mellitus without complication ([facility]) 02/12/2015 - Urinary tract infection, site not [...] mouth as needed. Blood-Glucose Meter (ACCU-CHEK ANISH) [facility] Dispense 1 meter kit. Dx: Other DM [...] directed, ulcer of left 1st metatarsal, measurement: [id number], Dx: E11.621, L97.522 (Patient not taking: Reported on 10/05/2017 ) No current facility-administered medications on file prior to visit. 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 CAPSULE (TAMPER RESISTANT) Abbe Millan, MSN PRODUCTION MACHINE TENDER.HEAD OF ART CNOV Observed: 01/08/2018 Status: COMPLETED Source: [place] 9:40 AM [facility] REPOSITORY Office Visit (FAMPWS) DEBBY BAILON ([id number]) 1980 F Date Time Provider Department 01/08/18 9:40 AM ABBE MILLAN (TRAIN EXAMINER) FAMPWS During your visit today, we recorded the following information about you: Temperature Pulse Respiration Blood pressure 97.7 degrees 72/minute 18/minute 110/86 Weight 108.4 kg Abbe Millan, MSN PRODUCTION MACHINE TENDER.HEAD OF ART 01/08/2018 10:18 AM Signed Chief Complaint Patient [...] with OTC cold and sinus med from [email or web address] without benefit. Other sx: chills, no documented [...] thoracic - Dysthymic disorder Depression (non-psychotic), sees TRAIN EXAMINER at [facility]. 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 Seeing Dr. Gregg - Numbness and tingling of left arm and leg 08/07/2013 - Panic attacks - Recurrent UTI 11/28/2011 - Spina bifida (HCC) 01/06/2016 - Type 2 diabetes mellitus without complication ([facility]) 02/12/2015 - Urinary tract infection, site not [...] mouth as needed. Blood-Glucose Meter (ACCU-CHEK ANISH) [facility] Dispense 1 meter kit. Dx: Other DM [...] directed, ulcer of left 1st metatarsal, measurement: [id number], Dx: E11.621, L97.522 (Patient not taking: Reported on 10/05/2017 ) No current facility-administered medications on file prior to visit. 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 CAPSULE (TAMPER RESISTANT) Abbe Millan, MSN PRODUCTION MACHINE TENDER.HEAD OF ART Referring Provider: SELF [[id number]] Allergies As of Date: 01/08/2018 Noted Allergy Reaction MUSHROOM 06/10/2016 10 - Anaphylaxis PEANUTS 06/10/2016 10 - Anaphylaxis MRI CONTRAST (GADOLINIUM-CONTAINI*01/03/2017 8 - GI Upset Date Reviewed: 01/08/2018 Reviewed by: Abbe Naylor (Elastic Assembler) Monty - Fully Assessed Reason for Visit: [...] Simeon Rutherford LPN 01/08/2018 9:27 AM >> SIMOEN RUTHERFORD LPN MonJan 08, 2018 9:27 AM [...] A Type 2 diabetes mellitus with proteinuria ([facility])*INVALID FOR* Priority: A Pyelonephritis [N12] INVALID FOR* Diabetic eye exam ([facility]) [Z01.00, E11.9] INVALID FOR* Priority: A More... Migraine without aura and without status migrai*INVALID FOR* Priority: A Type 2 diabetes mellitus with albuminuria ([facility])*INVALID FOR* Priority: A Well adult exam [Z00.00] INVALID FOR* Priority: E More... Ulcer of left foot ([facility]) [L97.529] INVALID FOR* Priority: M Paroxysmal SVT [...] directed, ulcer of left 1st metatarsal, measurement: 3xbi2hpp5us, Dx: E11.621, L97.522 Patient not taking: Reported on 10/05/2017 Disc: Course of therapy completed Disposition: Return in about 3 weeks (around 01/29/2018). Follow-up and Disposition History Recorded Encounter Status:Closed by ABBE MILLAN HEAD OF ART on 01/08/18 CNOV Observed: 01/02/2018 Status: COMPLETED Source: [place] 2:30 PM CLINIC OTHER CAMPUS REPOSITORY Office Visit (AGGENS1) DEBBY BAILON ([id number]) 1980 F Date Time Provider Department 01/02/18 [...] thoracic - Dysthymic disorder Depression (non-psychotic), sees TRAIN EXAMINER at [facility]. 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 Blood-Glucose Meter (ACCU-CHEK ANISH) [facility] [place] 1 meter kit. Dx: Other DM [...] and lower extr*INVALID FOR*01/06/2016 Priority: D Lipomeningocele ([facility]) [Q05.9] INVALID FOR* Priority: B Lumbago [M54.5] INVALID FOR* Priority: M Neuropathy ([facility]) [G62.9] INVALID FOR* Priority: A More... Morbid obesity ([facility]) [E66.01] INVALID FOR* Priority: B Chronic pain [G89.29] INVALID FOR* Priority: M Neurogenic bladder [N31.9] INVALID FOR* Priority: B Hydronephrosis, right [N13.30] INVALID FOR* Priority: C History of kidney stones [Z87.442] INVALID FOR* Priority: C Spina bifida ([facility]) [Q05.9] INVALID FOR* Priority: B Neurogenic bowel [K59.2] INVALID FOR* Priority: B Primary insomnia [F51.01] INVALID FOR* Priority: A Type 2 diabetes mellitus with proteinuria ([facility])*INVALID FOR* Priority: A Pyelonephritis [N12] INVALID FOR* Diabetic eye exam ([facility]) [Z01.00, E11.9] INVALID FOR* Priority: A More... Migraine without aura and without status migrai*INVALID FOR* Priority: A Type 2 diabetes mellitus with albuminuria ([facility])*INVALID FOR* Priority: A Well adult exam [Z00.00] INVALID FOR* Priority: E More... Ulcer of left foot ([facility]) [L97.529] INVALID FOR* Priority: M Paroxysmal SVT [...] 01/15/18 PROGRESS Observed: 01/01/2018 Status: COMPLETED Source: [place] 1:27 PM [facility] REPOSITORY HNO ID: [id number] Author: Megan Gonazlez Service: (none) Author Type: Travelers' Aid Worker Type: Progress Notes Filed: 01/01/2018 1:27 PM [...] US THYROID/PARATHYROID Observed: 01/01/2018 Status: F Source: [place] 1:26 PM [facility] REPOSITORY * * *Final Report* * * DATE OF EXAM: Jan 01 2018 1:26PM [facility] 1048 - US THYROID/PARATHYROID / PROCEDURE REASON: [...] thyroid lobe. No suspicious or solid mass Sketcher: [facility] Transcribe Date/Time: Jan 01 2018 6:12P Dictated by : GAMA TAPIA MD This examination was interpreted and the report reviewed and electronically signed by: GAMA TAPIA MD on Jan 01 2018 6:14PM EST [id number] ED NOTE Observed: 12/26/2017 Status: COMPLETED Source: [place] 12:27 PM [facility] REPOSITORY HNO ID: [id number] Author: Kati (Rn) VERNON Be Service: Emergency Medicine Author Type: Registered Nurse Type: ED Notes Filed: 12/26/2017 12:27 PM Note Text: Pt given icepack . Aware up for d/c . Aware waiting on paperwork ED PROV NOTE Observed: 12/26/2017 Status: COMPLETED Source: [place] 12:16 PM [facility] REPOSITORY HNO ID: [id number] Author: Annamaria Petersen MD Service: Emergency Medicine [...] ED NOTE Observed: 12/26/2017 Status: COMPLETED Source: [place] 11:34 AM [facility] OTHER [facility]AMP[facility] REPOSITORY HNO ID: [id number] Author: Kati (Rn) VERNON Be Service: Emergency Medicine Author Type: Registered Nurse Type: ED Notes Filed: 12/26/2017 11:34 AM Note Text: Visitor at bedside. ED PROV NOTE Observed: 12/26/2017 Status: COMPLETED Source: [place] 11:12 AM [facility] OTHER CAMP[facility] REPOSITORY HNO ID: [id number] Author: Annamaria Petersen MD Service: Emergency Medicine [...] thoracic - Dysthymic disorder Depression (non-psychotic), sees TRAIN EXAMINER at [facility]. 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 Seeing Dr. Gregg - Numbness and tingling of left arm and leg 08/07/2013 - Panic attacks - Recurrent UTI 11/28/2011 - Spina bifida (HCC) 01/06/2016 - Type 2 diabetes mellitus without complication ([facility]) 02/12/2015 - Urinary tract infection, site not [...] in stable condition. SIGNATURE: MD Mark Carter (Res) MD Shona Resident 12/27/17 1526 Attending Note I evaluated the patient and personally participated in the peters components. I agree with the resident's findings and plan as documented and have discussed the case and management of the patient's care with the resident. Signature: Annamaria Petersen MD Date: 12/27/2017 Time: 3:55 PM Annamaria Petersen MD 12/27/17 1555 EMERGENCY DEPARTMENT Observed: 12/24/2017 Status: F Source: [place] SUMMARY 3:43 PM [facility] REPOSITORY [facility] Medical Records Department [address] [place] [address] Emergency Department Summary 12/24/17 0735 MR#: [id number] Acct: [id number] Name: DEBBY BAILON Rep #: [id number] : 1980 37 From: Jayson Yost MD PCP: Will Dietz MD Status: DEP ER - ER Visit Summary Date of Service: 12/24/17 Chief Complaint: [Abdominal pain] History of Present Illness: The patient is a 37 F with abdominal pain for the past 2 weeks since her recent abdominal hernia surgery done at [facility]. She has no fever or chills she [...] [Abdominal pain] This note was generated with Schvey dictation software. It may contain incorrect words, spelling, and punctuation that were not noted in review of the chart prior to signing ED Disposition - Plan for ED Patient: Disposition: Home or Assisted Living Chief Complaint: Abd Pain Instructions: Abdominal Pain Prescriptions: Hydrocodone Bitart/Apap 5-325 [Randolph 5/325] 1 - 2 tab PO Q4H PRN PRN #3 tab PRN Reason: Pain Referrals: Will Dietz MD [Primary Care Provider] - 2 Days What to do if you have Problems For any increased pain, shortness of breath, bleeding, nausea or vomiting, chest pain, or any unexpected problems, contact your Primary Care Provider. Call [facility] ([phone]) or report to the closest Emergency Room. Call 911 if necessary. 12/24/17 6975 <Electronically signed by Jayson Yost MD> Date Jayson Yost MD Cosigner Signature (If Indicated): Date CC: Will Dietz MD CBC W/DIFF, AUTOMATED Collected: 12/24/2017 Status: F Source: [place] 7:45 AM [facility] REPOSITORY TYPE CODE TESTS RESULT OUT OF [...] Lymph 3.02 Performed By: #### L100.0100 #### [facility] [place], [address] COMPREHENSIVE METABOLIC Collected: 12/24/2017 Status: F Source: [place] MICHAUD 7:45 AM [facility] REPOSITORY TYPE CODE TESTS RESULT OUT OF [...] GAP 9 Performed By: #### L500.4050 #### [facility] [address] [place], [address] ABDOMEN/PELVIS W IV CONT Observed: 12/24/2017 Status: F Source: [place] ONLY 7:35 AM [facility] REPOSITORY [facility] Imaging Services [address] [place] [address] Abdomen/Pelvis W IV Cont ONLY MR#: [id number] Acct: [id number] Name: DEBBY BAILON Rep #: [id number] : 1980 F 37 From: Daniel Fitch PCP: Will Dietz MD Status: REG ER Study: Abdomen/Pelvis W IV Cont ONLY Date of Exam: 12/24/17 Exam# [id number] Ordering Dr: Jayson Yost MD STUDY: CT [...] CC: Will Dietz MD; Jayson Yost MD Sketcher: Signed EMERGENCY DEPARTMENT Observed: 12/20/2017 Status: F Source: [place] SUMMARY 6:08 PM [facility] REPOSITORY [facility] Medical Records Department [address] [place] [address] Emergency Department Summary 12/20/17 1623 MR#: [id number] Acct: [id number] Name: DEBBY BAILON Rep #: [id number] : 1980 37 From: Dre Deal MD [...] 24-48 hours. She contacted her surgeon at [facility]. He requested that she come to the [...] obtained and consultation with her surgeon at [facility]. Her surgeon returned my page. He informed me that she has a Knapp stoma and reason she is passing gas from her umbilicus. Plan is to discharge to home with antibiotics if CT of the abdomen reveals no significant findings. If there is gas and more gas than prior scan in fluid collection previously noted she is to be transferred to [facility] otherwise follow-up as outpatient in 2-3 days Impression: 1. Subcutaneous fluid collection evaluate for abscess 2. Knapp stoma 3. History of spina bifida 4. History of frequent UTIs 5. History of type 2 diabetes This note was generated with VTMation software. It may contain incorrect words, spelling, [...] your Primary Care Provider. Call [facility] ([phone]) or report to the closest Emergency Room. Call 911 if necessary. 12/20/17 1703 <Electronically signed by Dre Deal MD> Date Dre Deal MD Cosigner Signature (If Indicated): Date CC: Will Dietz MD ABDOMEN/PELVIS WITH Observed: 12/20/2017 Status: F Source: [place] CONTRAST 3:27 PM [facility] REPOSITORY [facility] Imaging Services [address] [place] [address] Abdomen/Pelvis WITH Contrast MR#: [id number] Acct: [id number] Name: DEBBY BAILON Rep #: [id number] : 1980 F 37 From: Tulio Hartmann MD PCP: Will Dietz MD Status: REG ER Study: Abdomen/Pelvis WITH Contrast Date of Exam: 12/20/17 Exam# [id number] Ordering Dr: Dre Deal MD STUDY: CT [...] CC: Will Dietz MD; Dre Deal MD Sketcher: Signed BASIC METABOLIC Collected: 12/20/2017 Status: F Source: [place] PROFILE (BMP) 1:20 PM [facility] REPOSITORY TYPE CODE TESTS RESULT OUT OF [...] GAP 6 Performed By: #### L500.2500 #### [facility] [address] [place], [address] CBC W/DIFF, AUTOMATED Collected: 12/20/2017 Status: F Source: [place] 1:20 PM [facility] REPOSITORY TYPE CODE TESTS RESULT OUT OF [...] Lymph 1.98 Performed By: #### L100.0100 #### [facility] [address] [facility] [place], [address] 12 LEAD ELECTROCARDIOGRAM Observed: 12/19/2017 Status: F Source: [place] 1:18 PM [facility] REPOSITORY [facility] Cardiovascular Services [address] [place] [address] 12 Lead EKG 12/16/17 0808 MR#: [id number] Acct: [id number] Name: DEBBY BAILON Rep #: [id number] : 1980 37 From: Jayson Alvarez MD [...] Normal ECG Confirmed by STEFANI FITZGERALD, JAYSON ([id number]), society editor LYLA HAY ([id number]) on 12/19/2017 1:18:31 PM Referred By: EMMANUEL Confirmed By:JAYSON ALVAREZ MD 12/19/17 1318 Date Jayson Alvarez MD CC: Will Dietz MD; Taya Wong MD Signed EMERGENCY DEPARTMENT Observed: 12/18/2017 Status: F Source: [place] SUMMARY 1:33 AM [facility] REPOSITORY [facility] Medical Records Department [address] [place] [address] Emergency Department Summary 12/18/17 0003 MR#: [id number] Acct: [id number] Name: DEBBY BAILON Rep #: [id number] : 1980 37 From: Celine Boateng MD PCP: Will Dietz MD Status: DEP ER - ER Visit Summary Date of Service: 12/18/17 Chief Complaint: Abdominal pain History of Present Illness: The patient is a 37 F presents to the emergency department with abdominal pain. The patient had hernia repair done on December 11 at [facility] by Dr. Rios. She states that since [...] patient can safely be discharged. I did student counsellor her that she needs to call her surgeon tomorrow from [facility] to discuss plan of care. She will continue her oral antibiotics. I did add new antiemetics and antispasmodics to her regimen. She was counseled on concerning symptoms and reasons to return. The patient be discharged home. Treatment Plan: [] Disposition: Discharge Impression: Postoperative abdominal pain This note was generated with Schvey dictation software. It may contain incorrect words, [...] your Primary Care Provider. Call [facility] ([phone]) or report to the closest Emergency Room. Call 911 if necessary. 12/18/17 0133 <Electronically signed by Celine Boateng MD> Date Celine Boateng MD Cosigner Signature (If Indicated): Date CC: Will Dietz MD COMPREHENSIVE METABOLIC Collected: 12/17/2017 Status: F Source: [place] 12:02 AM [facility] REPOSITORY TYPE CODE TESTS RESULT OUT OF [...] GAP 8 Performed By: #### L500.4050 #### [facility] [place], [address] CBC W/DIFF, AUTOMATED Collected: 12/17/2017 Status: F Source: [place] 12:02 AM [facility] REPOSITORY TYPE CODE TESTS RESULT OUT OF [...] Lymph 3.49 Performed By: #### L100.0100 #### [facility] [address] [place], [place], [address] EMERGENCY DEPARTMENT Observed: 12/16/2017 Status: F Source: [place] SUMMARY 4:26 PM [facility] REPOSITORY [facility] Medical Records Department [address] [place] [address] Emergency Department Summary 12/16/17 0823 MR#: [id number] Acct: [id number] Name: DEBBY BAILON Rep #: [id number] : 1980 37 From: Taya Wong MD PCP: Will Dietz MD Status: DEP ER - ER Visit Summary Date of Service: 12/16/17 Chief Complaint: Short of breath, dizzy, nausea History of Present Illness: The patient is a 37 F who underwent umbilical hernia repair on December 11 at [facility]. She had a prior stoma at that [...] thyroid nodule This note was generated with Schvey dictation software. It may contain incorrect words, [...] problems, contact your Primary Care Provider. Call [employer] [facility] ([phone]) or report to the closest Emergency Room. Call 911 if necessary. 12/16/17 1626 <Electronically signed by Taya Wong MD> Date Taya Wong MD Cosigner Signature (If Indicated): Date CC: Will Dietz MD DISCHARGE INSTRUCTION Observed: 12/16/2017 Status: F Source: [place] 12:32 PM [facility] REPOSITORY [facility] Medical Records Department [address] [place] [address] Discharge Instruction 12/16/17 1230 MR#: [id number] Acct: [id number] Name: UVALDODEBBY Colette Rep #: [id number] : 1980 37 From: Taya Wong MD [...] your Primary Care Provider. Call [facility] ([phone]) or report to the closest Emergency Room. Call 911 if necessary. 12/16/17 1232 <Electronically signed by Taya Wong MD> Date Taya Wong MD Cosigner Signature (If Indicated): Date CC: Will Dietz MD URINALYSIS, COMPLETE Collected: 12/16/2017 Status: F Source: [place] 9:25 AM [facility] REPOSITORY Order Comment: Order Date: 12/16/17 Has [...] URINE SEEN Performed By: #### L400.0001 #### [facility] [address] [place], [address] CBC W/DIFF, AUTOMATED Collected: 12/16/2017 Status: F Source: [place] 8:35 AM [facility] REPOSITORY TYPE CODE TESTS RESULT OUT OF [...] Lymph 2.30 Performed By: #### L100.0100 #### [facility] [address] [place], [address] BASIC METABOLIC Collected: 12/16/2017 Status: F Source: [place] PROFILE (BMP) 8:35 AM [facility] REPOSITORY TYPE CODE TESTS RESULT OUT OF [...] GAP 8 Performed By: #### L500.2500 #### [facility] [address] [place], [address] CHEST 1 VIEW Observed: 12/16/2017 Status: F Source: [place] (PORTABLE) 8:18 AM [facility] REPOSITORY [facility] Imaging Services [address] [place] [address] Chest 1 View (Portable) MR#: [id number] Acct: [id number] Name: DEBBY BAILON Rep #: [id number] : 1980 F 37 From: Kirsten Torres MD PCP: Will Dietz MD Status: REG ER Study: Chest 1 View (Portable) Date of Exam: 12/16/17 Exam# [id number] Ordering Dr: Taya Wong MD STUDY: X-RAY [...] CC: Will Dietz MD; Taya Wong MD Sketcher: Signed ABDOMEN/PELVIS WITH Observed: 12/16/2017 Status: F Source: [place] CONTRAST 8:18 AM [facility] REPOSITORY [facility] Imaging Services [address] [place] [address] Abdomen/Pelvis WITH Contrast MR#: [id number] Acct: [id number] Name: DEBBY BAILON Rep #: [id number] : 1980 F 37 From: Kirsten Torres MD PCP: Will Dietz MD Status: REG ER Study: Abdomen/Pelvis WITH Contrast Date of Exam: 12/16/17 Exam# [id number] Ordering Dr: Taya Wong MD STUDY: CT [...] CC: Will Dietz MD; Taya Wong MD Sketcher: Signed CTA CHEST W/WO Observed: 12/16/2017 Status: F Source: [place] CONTRAST 8:18 AM [facility] REPOSITORY [facility] Imaging Services [address] [place] [address] CTA Chest W/WO Contrast MR#: [id number] Acct: [id number] Name: DEBBY BAILON Rep #: [id number] : 1980 F 37 From: Kirsten Torres MD PCP: Will Dietz MD Status: REG ER Study: CTA Chest W/WO Contrast Date of Exam: 12/16/17 Exam# [id number] Ordering Dr: Taya Wong MD STUDY: CTA [...] CC: Will Dietz MD; Taya Wong MD Sketcher: Signed GLUCOSE METER Collected: 12/12/2017 Status: F Source: [facility] 4:52 PM HEALTH SYSTEM REPOSITORY TYPE CODE TESTS RESULT OUT OF REFERENCE UNITS RANGE LAB GLUBL(LOINC 70-99 mg/dL ) High Glucose Meter 186 Result Comment: RN NOTIFIED Performed By: #### GLMET #### [place] [address] CNDS Observed: 12/12/2017 Status: COMPLETED Source: [place] 3:18 PM CLINIC OTHER CAMPUS REPOSITORY HNO ID: [id number] Author: Naty Araiza Service: General Surgery Author [...] WAS IN THE HOSPITAL: On 12/11/17 Ms. Bailno underwent surgery for repair of parastomal hernia [...] medication (see prescription) You should use an aade-dkn-amauqpj stool softener (Docusate sodium) and/or a fiber [...] to call for appointment?: Yes Anne Christensen [phone] [address] [facility] [address] [facility] [address] PCP Requested Referral Additional Provider to Provider Information: No notes on file FOLLOW-UP APPOINTMENTS ALREADY SCHEDULED WITH A [facility] PROVIDER: Future Appointments Date Time Provider Department Center 02/28/2018 5:40 PM Will NUNEZ [facility] [place] DISCHARGE MEDICATION: Current Discharge Medication List [...] complication, without long-term current use of insulin ([facility]) lisinopril 2.5 mg Take 2.5 mg by mouth once daily. Qty: 30 tablet Refills: 11 Associated Diagnoses:Type 2 diabetes mellitus with albuminuria ([facility]) oxybutynin ER (DITROPAN XL) 10 mg Take 10 mg by mouth once daily. Qty: 20 tablet Refills: 0 gabapentin (NEURONTIN) 300 mg Take 300 mg by mouth three times daily. zolpidem (AMBIEN) 1 tablet Take 1 tablet by mouth as needed. Blood-Glucose Meter (ACCU-CHEK ANISH) [facility] Dispense 1 meter kit. Dx: Other DM [...] directed, ulcer of left 1st metatarsal, measurement: [id number], Dx: E11.621, L97.522 Qty: 1 Package Refills: 3 Associated Diagnoses:Other diabetic neurological complication associated with type 2 diabetes mellitus ([facility]); Toe amputation status, left ([facility]); Diabetic ulcer of toe of left foot associated with type 2 diabetes mellitus, with fat layer exposed ([facility]) hydrOXYzine pamoate (VISTARIL) 25 mg Take 25 mg by mouth three times daily as needed. [facility] Refills: 0 !! - Potential duplicate medications found. Please discuss with provider. TIME OF CARE: Discharge Management: I personally spent greater than 30 minutes involved in the discharge management of this patient. SIGNATURE: Naty Araiza APRN.CNP PAGER/CONTACT #: [phone] DATE: December 12, 2017 TIME: 3:18 PM NURSING PROG Observed: 12/12/2017 Status: COMPLETED Source: [place] 2:27 PM CLINIC OTHER CAMPUS REPOSITORY HNO ID: [id number] Author: Margarita (Rn) Jose Raul RN Service: Nursing Author Type: Registered Nurse Type: Nursing Progress Note Filed: 12/12/2017 2:28 PM Note Text: 1425 Transferred on bed to [facility] NURSING PROG Observed: 12/12/2017 Status: COMPLETED Source: [place] 2:19 PM [facility] REPOSITORY HNO ID: [id number] Author: Margarita ValdezRn) VERNON Hay Service: Nursing Author Type: Registered Nurse Type: Nursing Progress Note Filed: 12/12/2017 2:20 PM Note Text: 1330 Report called to Vasiliy Medina for [address] [place] [address] Room not ready NURSING PROG Observed: 12/12/2017 Status: COMPLETED Source: [place] 6:35 AM [facility] REPOSITORY HNO ID: [id number] Author: Benjie ValdezRn) VERNON Maurice Service: Nursing Author Type: Registered Nurse Type: Nursing Progress Note Filed: 12/12/2017 6:36 AM Note Text: Dr Briceno by to see pt, informed of unable to obtain blood specimen this morning. NURSING PROG Observed: 12/12/2017 Status: COMPLETED Source: [place] 6:15 AM [facility] REPOSITORY HNO ID: [id number] Author: Benjie ValdezRn) VERNON Maurice Service: Nursing Author Type: Registered Nurse Type: Nursing Progress Note Filed: 12/12/2017 6:16 AM Note Text: Unsuccessful blood draw attempts by 2 RN's twice each. Pt tolerated well. PROGRESS Observed: 12/12/2017 Status: COMPLETED Source: [place] 6:13 AM [facility] REPOSITORY HNO ID: [id number] Author: Pérez Briceno Service: General Surgery Author [...] Therapy: Nasal Cannula IANDO: Date 12/11/17699 - 12/12/1765812/12/17699 - 12/13/17658 Shift 5414-6759 8209-2258 2455-7773 24 Hour Total 9358-0739 5494-7209 7812-8130 24 Hour Total I N T A [...] please page [phone] if in ICU or [phone] if on RNF. SIGNATURE: Pérez Briceno MD PATIENT NAME: Debby Bailon DATE: December 12, 2017 TIME: 6:13 AM Pager: above ANES POST Observed: 12/12/2017 Status: COMPLETED Source: [place] 12:02 AM [facility] OTHER CAMPUS REPOSITORY HNO ID: [id number] Author: Javier Pruett Service: Anesthesiology Author Type: [...] OPERATIVE NO Observed: 12/11/2017 Status: COMPLETED Source: [place] 236[address]:10 PM [facility] OTHER CAMPUS REPOSITORY O ID: [id number] Author: Pérez Briceno Service: General Surgery Author Type: Resident Type: Operative Report Filed: 12/12/2017 12:06 PM Note Text: Attestation signed by Anne Christensen at 12/12/2017 3:32 PM I was present for the critical portions of the procedure and was immediately available to provide assistance. I agree with the residents operative dictation. Anne Christensen MD December 12, 2017 3:32 PM OPERATIVE/PROCEDURE REPORT LOG ID: [id number] SURGERY/PROCEDURE DATE: 12/11/2017 INCISION/PROCEDURE START TIME: 5:23 PM INCISION CLOSE/PROCEDURE END TIME: 6:51 PM SURGEON(S)/PROCEDURALIST(S) AND OFFSET PLATE PREPARATION SUPERVISOR(S): Surgeon(s) and Role: * Anne Christensen - [...] OP NOT Observed: 12/11/2017 Status: COMPLETED Source: [place] 6:53 PM CLINIC OTHER CAMPUS REPOSITORY HNO ID: [id number] Author: Pérez Briceno Service: General Surgery Author Type: Resident Type: Brief Op Note Filed: 12/11/2017 6:54 PM Note Text: BRIEF OPERATIVE / PROCEDURE NOTE LOG ID: [id number] SURGERY/PROCEDURE DATE: 12/11/2017 INCISION/PROCEDURE START TIME: 5:23 PM INCISION CLOSE/PROCEDURE END TIME: 6:51 PM SURGEON(S)/PROCEDURALIST(S) AND OFFSET PLATE PREPARATION SUPERVISOR(S): Surgeon(s) and Role: * Anne Christensen - [...] NURSING PROG Observed: 12/11/2017 Status: COMPLETED Source: [place] 5:38 PM [facility] OTHER [place] REPOSITORY HNO ID: [id number] Author: Hilda (Rn) VERNON Gonzalez Service: Nursing Author Type: Registered Nurse Type: Nursing Progress Note Filed: 12/11/2017 5:39 PM Note Text: Family updated URINE HCG, QUAL. Collected: 12/11/2017 Status: F Source: [facility] 1:25 PM HEALTH SYSTEM REPOSITORY TYPE CODE TESTS RESULT OUT OF REFERENCE UNITS RANGE LAB URHCG(LOIN Negative C) HCG, Qual. Negative Urine LAB SPGR(LOINC 1.005-1.030 ) Specific 1.013 [place], Ur Performed By: #### HCGUR #### [place] [address] ANES PREOP Observed: 12/11/2017 Status: COMPLETED Source: [place] 1:13 PM [facility] OTHER [place] REPOSITORY HNO ID: [id number] Author: Celine Alfred Service: Anesthesiology Author Type: [...] Lipomeningocele (Hcc) Lumbago Neuropathy (Hcc) Morbid Obesity ([facility]ly [facility]) Chronic Pain Neurogenic Bladder Hydronephrosis, Right History of Kidney Stones Spina Bifida ([facility]ly [facility]) Neurogenic Bowel Primary Insomnia Type 2 Diabetes Mellitus With Proteinuria ([facility]) Pyelonephritis Diabetic Eye Exam ([facility]ly [facility]) Migraine Without Aura and Without Status Migrainosus, Not Intractable Type 2 Diabetes Mellitus With Albuminuria ([facility]) Well Adult Exam Ulcer of Left Foot ([facility]) Paroxysmal Svt (Supraventricular Tachycardia) ([facility]ly [facility]) Dm (Diabetes Mellitus), Secondary, Uncontrolled, W/Renal Complications ([facility]) PAST MEDICAL HISTORY Diagnosis Date - Abnormal sensation of left upper and lower extremity 08/07/2013 - Anxiety - Arthritis started age 19 - Cervical radiculopathy 05/02/2013 - Chronic pain 02/12/2015 - Depressive disorder, not elsewhere classified 11/28/2011 [facility] - DJD (degenerative joint disease), thoracic - Dysthymic disorder Depression (non-psychotic), sees TRAIN EXAMINER at [facility]. 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 [...] directed, ulcer of left 1st metatarsal, measurement: [id number], Dx: E11.621, L97.522 (Patient not taking: Reported [...] December 11, 2017 TIME: 1:13 PM CSN: [id number] CNPN Observed: 12/05/2017 Status: COMPLETED Source: [place] 12:00 AM [facility] REPOSITORY [facility] DEBBY BAILON ([id number]) 1980 F Date Time Provider Department 12/05/17 WILL DIETZ During your visit today, we [...] [facility]ing Center to ask for letter for network control supervisor pet as advised by pcp. She was told that her pcp has to do that. Now pt is confused. Yin Uribe LPN Fifi Kay SERVICE TECHNICIAN 12/05/2017 3:12 PM Signed Patient calling to check status of request. Patient said she tests twice daily for her meter. Will Dietz MD 12/05/2017 3:52 PM Signed [facility] and discuss with them that the patient called requesting a letter for a network control supervisor pet. patient sees them for her Anxiety [...] 12/05/2017 4:02 PM [facility] Left detailed message on Dr. Coates Voicemail at counseling center Patient advised pcp does not give letters for this and needs to come from counselor who manages anziety/panic attacks. Patient is aware that message left on Dr. Coates voicemail requesting if staff can contact patient if letter is fit medical necessity Chasidy Cade Ma Fifi Eliza SERVICE TECHNICIAN 12/05/2017 5:02 PM Signed [facility] calling said do not carry stoma catheter and not sure where patient will be able to get it from. Phoned patient and let her know pharmacy does not carry stoma catheter and she said she will call [employer] in the morning. Allergies As of Date: [...] and lower extr*INVALID FOR*01/06/2016 Priority: D Lipomeningocele ([facility]) [Q05.9] INVALID FOR* Priority: B Lumbago [M54.5] INVALID FOR* Priority: M Neuropathy ([facility]) [G62.9] INVALID FOR* Priority: A More... Morbid obesity ([facility]) [E66.01] INVALID FOR* Priority: B Chronic pain [G89.29] INVALID FOR* Priority: M Neurogenic bladder [N31.9] INVALID FOR* Priority: B Hydronephrosis, right [N13.30] INVALID FOR* Priority: C History of kidney stones [Z87.442] INVALID FOR* Priority: C Spina bifida ([facility]) [Q05.9] INVALID FOR* Priority: B Neurogenic bowel [K59.2] INVALID FOR* Priority: B Primary insomnia [F51.01] INVALID FOR* Priority: A Type 2 diabetes mellitus with proteinuria ([facility])*INVALID FOR* Priority: A Pyelonephritis [N12] INVALID FOR* Diabetic eye exam ([facility]) [Z01.00, E11.9] INVALID FOR* Priority: A More... Migraine without aura and without status migrai*INVALID FOR* Priority: A Type 2 diabetes mellitus with albuminuria ([facility])*INVALID FOR* Priority: A Well adult exam [Z00.00] INVALID FOR* Priority: E More... Ulcer of left foot ([facility]) [L97.529] INVALID FOR* Priority: M Paroxysmal SVT [...] HISTORY PHYSICAL Observed: 12/01/2017 Status: COMPLETED Source: [place] 11:03 AM CLINIC OTHER CAMPUS REPOSITORY O ID: [id number] Author: Stacey Rao Service: (none) Author Type: [...] With Proteinuria (Hcc) Pyelonephritis Diabetic Eye Exam ([facility]) Migraine Without Aura and Without Status Migrainosus, Not Intractable Type 2 Diabetes Mellitus With Albuminuria ([facility]) Well Adult Exam Ulcer of Left Foot ([facility]) Paroxysmal Svt (Supraventricular Tachycardia) ([facility]) Subjective CHIEF COMPLAINT: Ventral hernia without obstruction or gangrene HPI: Ms. Bailon is a 37 year old female present in presurgical testing. She states she found the hernia in september 2017. States she has a stoma in her stomach and she had an xray and cat scan and found it. States the xray was completed in [place] [facility] because the type of the stoma [...] Depressive disorder, not elsewhere classified 11/28/[address] [facility] - DJD (degenerative joint disease), thoracic - Dysthymic disorder Depression (non-psychotic), sees TRAIN EXAMINER at [facility]. 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 Seeing Dr. 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 Denies V/D. : Denies dysuria. TOOTH POLISHER: Denies abnormal vaginal bleeding. Endocrine: + diabetes. [...] 01, 2017 TIME: 11:03 AM PAGER/CONTACT #: [facility] Observed: 11/09/2017 Status: COMPLETED Source: [place] 12:00 AM CLINIC OTHER CAMPUS REPOSITORY Patient:Debby Bailon MRN: <[id number]> Height:5' 2(1.575 m) Weight:237 lb (107.502 kg) [...] [F51.01] 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) [E11.29, R80.9] Pyelonephritis [N12] Diabetic eye exam ([facility]) [Z01.00, E11.9] Migraine without aura and without status migrainosus, not intractable [G43.009] 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) [E11.29, R80.9] Well adult exam [Z00.00] Ulcer of left foot (HCC) [L97.529] Paroxysmal SVT (supraventricular tachycardia) (HCC) [I47.1] DM (diabetes mellitus), secondary, uncontrolled, w/renal complications (HCC) [E13.29, E13.65] Allergies: Mushroom Peanuts Mri Contrast [Gadolinium-Containing Contrast Media] Date Verified: 12/11/17 Lab Values No results within the last 30 days for the following basenames: K,HCT Progress Notes ([facility]): Yin Uribe LPN 12/05/2017 10:06 [...] [facility] to ask for letter for network control supervisor pet as advised by pcp. She was told that her pcp has to do that. Now pt is confused. Yin Uribe LPN Fifi Eliza WATERS 12/05/2017 3:12 PM Signed Patient calling to check status of request. Patient said she tests twice daily for her meter. Will Dietz MD 12/05/2017 3:52 PM Signed [facility] and discuss with them that the patient called requesting a letter for a network control supervisor pet. patient sees them for her Anxiety [...] 12/05/2017 4:02 PM Signed [facility] Left detailed message on Dr. Jaxon Del Toro at counseling center Patient advised pcp does not give letters for this and needs to come from counselor who manages anziety/panic attacks. Patient is aware that message left on Dr. Jaxon del toro requesting if staff can contact patient if letter is fit medical necessity Chasidy Cade Ma Fifi Shorepaulette SERVICE TECHNICIAN 12/05/2017 5:02 PM Signed [facility] calling said do not carry stoma catheter and not sure where patient will be able to get it from. Phoned patient and let her know pharmacy does not carry stoma catheter and she said she will call [facility] in the morning. EMERGENCY DEPARTMENT Observed: 11/08/2017 Status: F Source: [place] SUMMARY 7:27 AM [facility] REPOSITORY [facility] Medical Records Department [address] [place] [address] Emergency Department Summary 11/08/17 0129 MR#: [id number] Acct: [id number] Name: DEBBY BAILON Rep #: [id number] : 1980 36 From: Celine Caputo MD [...] will follow up with her surgeon at [facility]. Disposition: Discharge Impression: 1. Acute on chronic abdominal pain This note was generated with [employer] dictation software. It may contain incorrect words, spelling, and punctuation that were not noted in review of the chart prior to signing ED Disposition - Plan for ED Patient: Disposition: Home or Assisted Living Chief Complaint: Abd Pain Diagnosis: Abdominal pain Instructions: ED Abdominal Pain Unkn Cause Additional Instructions: Followup with your surgeon at [facility] as scheduled. What to do if you have Problems For any increased pain, shortness of breath, bleeding, nausea or vomiting, chest pain, or any unexpected problems, contact your Primary Care Provider. Call [facility] ([phone]) or report to the closest Emergency Room. Call 911 if necessary. 11/08/17 0724 <Electronically signed by Celine Caputo MD> Date Celine Caputo MD Cosigner Signature (If Indicated): Date CC: Will Dietz MD CBC W/DIFF, AUTOMATED Collected: 11/07/2017 Status: F Source: [place] 11:25 PM [facility] REPOSITORY TYPE CODE TESTS RESULT OUT OF [...] Lymph 2.86 Performed By: #### L100.0100 #### [facility] [address] [place], [place], [address] COMPREHENSIVE METABOLIC Collected: 11/07/2017 Status: F Source: [place] [facility] 11:25 PM [facility] REPOSITORY TYPE CODE TESTS RESULT OUT OF [...] 9 Performed By: #### L500.4050, L501.2450 #### [facility] [address] [facility] [place], [address] LIPASE Collected: 11/07/2017 Status: F Source: [place] 11:25 PM [facility] REPOSITORY TYPE CODE TESTS RESULT OUT OF RANGE REFERENCE UNITS LAB L501.2450 73-393 U/L Normal LIPASE 132 Performed By: #### L500.4050, L501.2450 #### [facility] [address] [place], [address] LACTIC ACID Collected: 11/07/2017 Status: F Source: [place] 11:25 PM [facility] REPOSITORY Order Comment: Yes/No query for Sepsis Lactate Rule Y TYPE CODE TESTS RESULT OUT OF RANGE REFERENCE UNITS LAB L503.6005 0.4-2.0 mmol/L Normal LACTIC ACID 1.4 Performed By: #### L503.6005 #### [facility] [address] [facility] [place] [place], [address] ABDOMEN/PELVIS WITHOUT Observed: 11/07/2017 Status: F Source: [place] CONT 11:07 PM [facility] REPOSITORY [facility] Imaging Services [address] [place] [address] Abdomen/Pelvis without Cont MR#: [id number] Acct: [id number] Name: DEBBY BAILON Rep #: [id number] : 1980 F 36 From: Demetrius Britt PCP: Will Dietz MD Status: REG ER Study: Abdomen/Pelvis without Cont Date of Exam: 11/07/17 Exam# [id number] Ordering Dr: Celine Caputo MD STUDY: CT [...] , CC: Will Dietz MD; Celine Caputo Sketcher: Signed PROGRESS NOTE Observed: 11/07/2017 Status: COMPLETED Source: [place] 3:00 PM [facility] REPOSITORY Debby Bailon is here for consultation at the request of Will Dietz MD for: Urologic Problem (Elastic Assembler Discuss Knapp Stoma surgery) History of Presenting Problem: Patient referred by Dr. Christensen for problems with her Knapp Stoma. Had Knapp [facility] She developed an umbilical hernia and Dr. [...] reports prior visits with Dr. Sears at [facility]. She would like to continue seeing [...] stoma performed by Ramana Diaz MD at [facility] OR Allergies: Allergies Allergen Reactions Mushroom Extract [...] nothing. Will coordinate with Dr. Christensen at [facility]. Recommended follow up with Dr. Farhat Sears, an adult urologist at [facility] for ongoing urologic issues. In the [...] 07, 2017 Observed: 10/25/2017 Status: F Source: [place] URINE CULTURE 3:45 PM [facility] REPOSITORY Culture Result - 50,000 - <100,000 CFU/ml Normal urogenital fred Performed By: #### URCUL #### [facility] [employer] [address] [place], [place] [address] URINALYSIS WITH Collected: 10/25/2017 Status: F Source: [place] MICROSCOPIC 3:30 PM [facility] REPOSITORY TYPE CODE TESTS RESULT OUT OF RANGE REFERENCE UNITS LAB UCOL Yellow Color Yellow LAB [facility] Clear Clarity Abnormal Cloudy Alert LAB UGLUC Negative mg/dL Glucose, Abnormal Urine >=500 Alert LAB UBIL Negative Bilirubin, Urine Negative LAB UKET Negative Ketones, Urine Negative LAB USPG 1.005-1.030 Specific [place], Ur 1.017 LAB UHGB Negative Abnormal Hemoglobin/Blood, [...] Epithelial Cells Performed By: #### UAWMIC #### [facility] [employer] [address] [place], [place] [address] PROGRESS Observed: 10/25/2017 Status: COMPLETED Source: [place] 2:52 PM [facility] REPOSITORY HNO ID: [id number] Author: Will Dietz Service: (none) Author Type: [...] thoracic - Dysthymic disorder Depression (non-psychotic), sees TRAIN EXAMINER at [facility]. 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 Seeing Dr. Gregg - Numbness and tingling of left arm and leg 08/07/2013 - Panic attacks - Recurrent UTI 11/28/2011 - Spina bifida (HCC) 01/06/2016 - Type 2 diabetes mellitus without complication ([facility]) 02/12/2015 - Urinary tract infection, site not [...] directed, ulcer of left 1st metatarsal, measurement: 0xuy0eyk1px, Dx: E11.621, L97.522 (Patient not taking: Reported on 10/05/2017 ) No current facility-administered medications on file prior to visit. 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 [...] - Type 2 diabetes mellitus without complication ([facility]) 02/12/2015 - Urinary tract infection, site not [...] directed, ulcer of left 1st metatarsal, measurement: 7jug7ytv3in, Dx: E11.621, L97.522 (Patient not taking: Reported on 10/05/2017 ) No current facility-administered medications on file prior to visit. 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 Referring Provider: WILL DIETZ [[id number]] Allergies As of Date: 10/25/2017 Noted Allergy [...] (HCC) [E11.29, R80.9] Paroxysmal SVT (supraventricular tachycardia) ([facility]) [I47.1] Migraine without aura and without status [...] tabletRfl: 0 URINE CULTURE [SQURCUL] Order #: [id number]. #:[id number] URINALYSIS WITH MICROSCOPIC [SQUAWMIC] Order #: [id number] FUTURE blood sugar diagnostic (FREESTYLE LITE STRIPS) test stripTest blood sugar(s) 1-2 times daily. Dx: 250.0. Insulin: NoDisp: 50 StripRfl: 11 glimepiride (AMARYL) 4 mg tabletTake 1 tablet by mouth daily with breakfast.Disp: 30 tabletRfl: 5 atorvastatin (LIPITOR) 10 mg tabletTake 1 tablet by mouth once daily.Disp: 30 tabletRfl: 5 COMP METABOLIC PANEL [SQCMP] Order #: [id number] FUTURE HGB A1C [TCCPS2W] Order #: [id number] FUTURE LIPID PANEL BASIC [SQLIPB] Order #: [id number] FUTURE URINALYSIS WITH MICROSCOPIC [SQUAWMIC] Order #: [id number] FUTURE ALBUMIN/CREAT RATIO RND UR [SQUACR] Order #: [id number] FUTURE Prescriptions as of 10/25/2017 Sig: BLOOD [...] 10/25/17 PROGRESS Observed: 10/17/2017 Status: COMPLETED Source: [place] 4:42 PM CLINIC OTHER CAMPUS REPOSITORY HNO ID: [id number] Author: Anne Christensen Service: (none) Author Type: Physician Type: Progress Notes Filed: 10/17/2017 4:47 PM Note Text: Patient referred by: Fawn Coyne MD [address] [facility] [id number] HPI: This is a new patient consult from Dr. Coyne. 36-year-old female with a history of spina bifida and neurogenic bladder. She underwent a maze procedure at [facility] for constipation. She has developed pain [...] thoracic - Dysthymic disorder Depression (non-psychotic), sees TRAIN EXAMINER at [facility]. 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 - CONSULT TO [facility] MD ISAEL Shaw Observed: 10/17/2017 Status: COMPLETED Source: [place] 3:00 PM CLINIC OTHER CAMPUS REPOSITORY Office Visit (AGGENS1) DEBBY BAILON ([id number]) 1980 F Date Time Provider Department 10/17/17 3:00 PM [facility] During your visit today, we recorded the following information about you: Pulse Blood pressure Weight Height 73/minute 130/82 110 kg 1.575 m Anne Christensen MD 10/17/2017 4:47 PM Signed Patient referred by: Fawn Coyne MD [address] [facility] [id number] HPI: This is a new patient consult from Dr. Conye. 36-year-old female with a history of spina bifida and neurogenic bladder. She underwent a maze procedure at [facility] for constipation. She has developed pain [...] thoracic - Dysthymic disorder Depression (non-psychotic), sees TRAIN EXAMINER at [facility]. 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 Seeing Dr. 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 - CONSULT TO [facility] Anne Christensen MD Referring Provider: FAWN COYNE [[id number]] Allergies As of Date: 10/17/2017 Noted Allergy Reaction MRI CONTRAST (GADOLINIUM-CONTAINI*01/03/2017 8 - GI Upset MUSHROOM 06/10/2016 10 - Anaphylaxis PEANUTS 06/10/2016 10 - Anaphylaxis Date Reviewed: 10/17/2017 Reviewed by: Anne Christensen - Fully Assessed Reason for Visit: New Patient [172] Primary Visit Diagnosis:Incisional hernia with obstruction but no gangrene [K43.0] Order(s):CONSULT TO PEDS UROLOGY [108946] Order #: [id number]: 1 Prescriptions as of 10/17/2017 Sig: POLYETHYLENE [...] and lower extr*INVALID FOR*01/06/2016 Priority: D Lipomeningocele ([facility]) [Q05.9] INVALID FOR* Priority: B Lumbago [M54.5] INVALID FOR* Priority: M Neuropathy ([facility]) [G62.9] INVALID FOR* Priority: A More... Morbid obesity ([facility]) [E66.01] INVALID FOR* Priority: B Chronic pain [G89.29] INVALID FOR* Priority: M Neurogenic bladder [N31.9] INVALID FOR* Priority: B Hydronephrosis, right [N13.30] INVALID FOR* Priority: C History of kidney stones [Z87.442] INVALID FOR* Priority: C Spina bifida ([facility]) [Q05.9] INVALID FOR* Priority: B Neurogenic bowel [K59.2] INVALID FOR* Priority: B Primary insomnia [F51.01] INVALID FOR* Priority: A Type 2 diabetes mellitus with proteinuria ([facility])*INVALID FOR* Priority: A Pyelonephritis [N12] INVALID FOR* Diabetic eye exam ([facility]) [Z01.00, E11.9] INVALID FOR* Priority: A More... Migraine without aura and without status migrai*INVALID FOR* Priority: A Type 2 diabetes mellitus with albuminuria ([facility])*INVALID FOR* Priority: A Well adult exam [Z00.00] INVALID FOR* Priority: E More... Ulcer of left foot ([facility]ER[facility]) [L97.529] INVALID FOR* Priority: M Paroxysmal SVT (supraventricular tachycardia) (*INVALID FOR* Priority: A More... Encounter Status:Closed by ANNE CHRISTENSEN MD on 10/17/17 EMERGENCY DEPARTMENT Observed: 10/14/2017 Status: F Source: [place] SUMMARY 10:47 PM [facility] REPOSITORY [facility] Medical Records Department [address] [place] [address] Emergency Department Summary 10/14/17 1920 MR#: [id number] Acct: [id number] Name: DEBBY BAILON Rep #: [id number] : 1980 36 From: Will Barcenas MD [...] she saw Dr. Fawn Coyne at the [facility] to have her hernia repaired. Due to her complicated prior abdominal surgery Dr. Coyne has referred her up to [facility] and they are actually going to evaluate [...] Treatment: Discharge to home. [facility]. Treatment Plan: [] Disposition: Discharge Impression: Acute on chronic abdominal pain History of umbilical hernia easily reducible History of spina bifida and neurogenic bladder This note was generated with VTMation software. It may contain incorrect words, spelling, [...] your Primary Care Provider. Call [facility] ([phone]) or report to the closest Emergency Room. Call 911 if necessary. 10/14/172246 <Electronically signed by Will Barcenas MD> Date Will Barcenas MD Cosigner Signature (If Indicated): Date CC: Will Dietz MD DISCHARGE INSTRUCTION Observed: 10/14/2017 Status: F Source: [place] 10:47 PM [facility] REPOSITORY [facility] Medical Records Department [address] [place] [address] Discharge Instruction 10/14/17 1923 MR#: [id number] Acct: [id number] Name: DEBBY BAILON Rep #: [id number] : 1980 36 From: Will Barcenas MD PCP: Will Dietz MD Status: DEP ER ED Disposition - Plan for ED Patient: Disposition: Home or Assisted Living Chief Complaint: Abd Pain Additional Instructions: Tylenol and/or Motrin for pain. Plenty of fluids such as salt water and fruits, vegetables and fiber for constipation. Follow-up with your [facility] appointment on Monday. Return to ER if increasing abdominal pain, distention, fever or intractable vomiting. Currently there are no signs of bowel obstruction. What to do if you have Problems For any increased pain, shortness of breath, bleeding, nausea or vomiting, chest pain, or any unexpected problems, contact your Primary Care Provider. Call [facility] ([phone]) or report to the closest Emergency Room. Call 911 if necessary. 10/14/172246 <Electronically signed by Will Barcenas MD> Date Will Barcenas MD Cosign Signature (If Indicated): Date CC: Will Dietz MD COMP METABOLIC PANEL Collected: 10/10/2017 Status: F Source: [place] 2:36 PM [facility] REPOSITORY TYPE [...] mg/dL Glucose High 178 Result Comment: The [place] Diabetes Association (ADA) provides guidance for cutoff [...] Standards of Medical Care in Diabetes 2016, [place] Diabetes Association. Diabetes Care. 2016.39(Suppl 1). LAB [...] Performed By: #### CMP, LIPB, HBA1C #### [facility] [address] [place] [id number] LIPID PANEL, BASIC Collected: 10/10/2017 Status: F Source: [place] 2:36 PM [facility] REPOSITORY TYPE CODE TESTS RESULT OUT OF [...] Desk Reference: National Heart, Lung, and Blood [place]. National Institutes of Health. 2001: NIH Publication No. 01-3305. 2. An International Atherosclerosis Society position paper: global recommendations for the management of dyslipidemia: executive summary, Atherosclerosis. 2014: 232(2):410-413. Performed By: #### CMP, LIPB, HBA1C #### [facility] [address] [place], [place] [address] HEMOGLOBIN A1C Collected: 10/10/2017 Status: F Source: [place] 2:36 PM [facility] REPOSITORY TYPE CODE TESTS RESULT OUT OF REFERENCE UNITS RANGE LAB HGBA1C 4.3-5.6 % High Hemoglobin A1c 8.9 LAB HBA0 mg/dL Est. Average Glucose 209 Result Comment: eAG: (Estimated average glucose) is a calculated value from HgbA1c and is sales representative printing supplies of the average blood glucose level in the last 2-3 month period. Performed By: #### CMP, LIPB, HBA1C #### [facility] [address] [place] [id number] PROGRESS Observed: 10/06/2017 Status: COMPLETED Source: [place] 8:21 PM [facility] REPOSITORY HNO ID: [id number] Author: Fawn Coyne Service: (none) Author Type: [...] thoracic - Dysthymic disorder Depression (non-psychotic), sees TRAIN EXAMINER at [facility]. 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 Will refer patient to [facility] for second opinion. I have answered all questions to the patient?s satisfaction and the patient has no further questions. Greater than 50% of this patient encounter was dedicated to face to face discussion with the patient. Diagnoses: No diagnosis found. Fawn Coyne MD CNOV Observed: 10/05/2017 Status: COMPLETED Source: [place] 3:00 PM [facility] REPOSITORY Office Visit (GENSWS) DEBBY BAILON ([id number]) 1980 F Date Time Provider Department 10/05/17 3:00 PM FAWN COYNE During your visit today, we recorded the following information about you: Pulse Blood pressure Weight Height 66/minute 104/60 109 kg 1.575 m Haysonu Shanna WATERS 10/05/2017 3:22 PM Signed REVIEW OF SYSTEMS: [...] last Mammogram screening? 07/2017 Last Colonoscopy: NONE Fawn Calle LPN 10/06/2017 8:41 PM Signed Debby Bailon 1980 [...] thoracic - Dysthymic disorder Depression (non-psychotic), sees TRAIN EXAMINER at [facility]. 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 Seeing Dr. Gregg - Numbness and tingling of left arm and leg 08/07/2013 - Panic attacks - Recurrent UTI 11/28/2011 - Spina bifida ([facility]) 01/06/2016 - Type 2 diabetes mellitus without complication ([facility]) 02/12/2015 - Urinary tract infection, site not [...] directed, ulcer of left 1st metatarsal, measurement: [id number], Dx: E11.621, L97.522 (Patient not taking: Reported on 10/05/2017 ) ALLERGIES: Mri Contrast [Gadolinium-Containing Contrast Media]; Mushroom; Peanuts PERSONAL HISTORY: Social History Marital status: Spouse name: MEHDI Years of education: 12 Number of children: 0 Occupational History 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 Will refer patient to [facility] for second opinion. I have answered all questions to the patient?s satisfaction and the patient has no further questions. Greater than 50% of this patient encounter was dedicated to face to face discussion with the patient. Diagnoses: No diagnosis found. Fawn Coyne MD Referring Provider: MARIANA CORDERO I [[id number]] Allergies As of Date: 10/05/2017 Noted Allergy [...] [Z87.442] INVALID FOR* Priority: C Spina bifida (FORMER[facility]) [Q05.9] INVALID FOR* Priority: B Neurogenic bowel [K59.2] INVALID FOR* Priority: B Primary insomnia [F51.01] INVALID FOR* Priority: A Type 2 diabetes mellitus with proteinuria (FORM[facility])*INVALID FOR* Priority: A Pyelonephritis [N12] INVALID FOR* Diabetic eye exam (FORM[facility]) [Z01.00, E11.9] INVALID FOR* Priority: A More... Migraine without aura and without status migrai*INVALID FOR* Priority: A Type 2 diabetes mellitus with albuminuria ([facility])*INVALID FOR* Priority: A Well adult exam [Z00.00] INVALID FOR* Priority: E More... Ulcer of left foot ([facility]) [L97.529] INVALID FOR* Priority: M Paroxysmal SVT (supraventricular tachycardia) (*INVALID FOR* Priority: A More... Visit Notes: >> Shanna Joy LPN [facility] October 05, 2017 3:21 PM Status: Signed [...] 07/2017 Last Colonoscopy: NONE Shanna Joy LPN Letter Text Encounter Status:Closed by MD FAWN COYNE on 10/06/17 12 LEAD ELECTROCARDIOGRAM Observed: 09/18/2017 Status: F Source: [place] 2:38 PM [facility] REPOSITORY [facility] Cardiovascular Services [address] [place] [address] 12 Lead EKG 09/15/17 1522 MR#: [id number] Acct: [id number] Name: DEBBY BAILON Rep #: [id number] : 1980 36 From: Jayson Alvarez MD [...] Normal ECG Confirmed by STEFANI FITZGERALD, JAYSON ([id number]), society editor LYLA HAY ([id number]) on 09/18/2017 2:37:25 PM Referred By: Arnold Caban Confirmed By:AJYSON ALVAREZ MD 09/18/17 7281 Date Jayson Alvarez MD CC: Will Dietz MD; Arnold Wallace EMERGENCY DEPARTMENT Observed: 09/16/2017 Status: F Source: [place] SUMMARY 1:12 AM [facility] REPOSITORY [facility] Medical Records Department [address] [place] [address] Emergency Department Summary 09/15/17 1512 MR#: [id number] Acct: [id number] Name: DEBBY BAILON Rep #: [id number] : 1980 36 From: Arnold Brice PCP: [...] September. She was told to go to [facility] for evaluation 10 days ago, however unable to get a ride up that way. She has history of constipation. Patient states had a Knapp stoma 2 years ago at [facility]. She had a colonoscopy prior by [...] neurogenic bladder and has seen urology at [facility]. She reports that while she is able [...] Umbilical hernia This note was generated with Schvey dictation software. It may contain incorrect words, [...] your Primary Care Provider. Call [facility] ([phone]) or report to the closest Emergency Room. Call 911 if necessary. 09/16/17 0112 <Electronically signed by Arnold Brice> Date Arnold Brice Cosigner Signature (If Indicated): Date CC: Will Dietz MD CBC W/DIFF, AUTOMATED Collected: 09/15/2017 Status: F Source: [place] 6:05 PM [facility] REPOSITORY TYPE CODE TESTS RESULT OUT OF [...] Lymph 3.01 Performed By: #### L100.0100 #### [facility] [place], [address] COMPREHENSIVE METABOLIC Collected: 09/15/2017 Status: F Source: [place] MICHAUD 6:05 PM [facility] REPOSITORY TYPE CODE TESTS RESULT OUT OF [...] 5 Performed By: #### L500.4050, L501.2450 #### [facility] [address] [place], [address] LIPASE Collected: 09/15/2017 Status: F Source: [place] 6:05 PM [facility] REPOSITORY TYPE CODE TESTS RESULT OUT OF RANGE REFERENCE UNITS LAB L501.2450 73-393 U/L Normal LIPASE 115 Performed By: #### L500.4050, L501.2450 #### [facility] [address] [place], [address] URINALYSIS, COMPLETE Collected: 09/15/2017 Status: F Source: [place] 3:55 PM [facility] REPOSITORY Order Comment: Order Date: 09/15/17 How was Urine Obtained? LINE REPAIRER TOWER TO SPECIFY TYPE CODE TESTS RESULT OUT [...] URINE SEEN Performed By: #### L400.0001 #### [facility] [address] [place], [address] ,URINE Collected: 09/15/2017 Status: F Source: [place] 3:55 PM [facility] REPOSITORY Order Comment: Order Date: 09/15/17 TYPE CODE TESTS RESULT OUT OF REFERENCE UNITS RANGE LAB L400.8000 Negative Normal HCGUQUAL Negative Result Comment: Very dilute urine specimens, as indicated by a low specific gravity, may not contain sales representative printing supplies levels of hCG. If is still suspected, a first morning urine specimen should be collected 48 hours later and tested. Performed By: #### L400.7600 #### [facility] [address] [place], [address] ABDOMEN/PELVIS WITH Observed: 09/15/2017 Status: F Source: [place] CONTRAST 3:12 PM [facility] REPOSITORY [facility] Imaging Services [address] [place] [address] Abdomen/Pelvis WITH Contrast MR#: [id number] Acct: [id number] Name: DEBBY BAILON Rep #: [id number] : 1980 F 36 From: Lyla Xavier MD PCP: Will Dietz MD Status: REG ER Study: Abdomen/Pelvis WITH Contrast Date of Exam: 09/15/17 Exam# [id number] Ordering Dr: Arnold Caban DO CT Abdomen [...] , CC: Will Dietz MD; Arnold Caban Sketcher: Signed PROGRESS Observed: 09/12/2017 Status: COMPLETED Source: [place] 10:24 AM [facility] REPOSITORY HNO ID: [id number] Author: Kevin Osorio Service: (none) Author Type: Physician Type: Progress Notes Filed: 09/12/2017 10:24 AM Note Text: Please see ultrasound report for details of this visit. Kevin Osorio M.D. EMERGENCY DEPARTMENT Observed: 08/26/2017 Status: F Source: [facility] 4:17 PM [facility] REPOSITORY [facility] Medical Records Department [address] [place] [address] Emergency Department Summary 08/22/17 2256 MR#: [id number] Acct: [id number] Name: DEBBY BAILON Rep #: [id number] : 1980 36 From: Nemesio Sanderson DO [...] Chronic constipation This note was generated with Schvey dictation software. It may contain incorrect words, [...] your Primary Care Provider. Call [facility] ([phone]) or report to the closest Emergency Room. Call 911 if necessary. 08/26/17 3708 <Electronically signed by Nemesio Sanderson DO> Date Nemesio Sanderson DO Cosigner Signature (If Indicated): Date CC: Will Dietz MD ACUTE ABDOMEN INC Observed: 08/22/2017 Status: F Source: [place] CHEST 10:38 PM [facility] REPOSITORY [facility] Imaging Services [address] [place] [address] Acute Abdomen Inc Chest MR#: [id number] Acct: [id number] Name: DEBBY BAILON Rep #: [id number] : 1980 F 36 From: Ki Ballesteros MD PCP: Will Dietz MD Status: REG ER Study: Acute Abdomen Inc Chest Date of Exam: 08/22/17 Exam# [id number] Ordering Dr: Nemesio Sanderson DO STUDY: X-RAY [...] CC: Nemesio Sanderson DO; Will Dietz MD Sketcher: Signed PROGRESS Observed: 08/12/2017 Status: COMPLETED Source: [place] 9:14 PM [facility] REPOSITORY HNO ID: [id number] Author: Gavin Gomez Service: (none) Author Type: [...] thoracic - Dysthymic disorder Depression (non-psychotic), sees TRAIN EXAMINER at [facility]. 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 Seeing Dr. Gregg - Numbness and tingling of left arm and leg 08/07/2013 - Panic attacks - Recurrent UTI 11/28/2011 - Spina bifida (HCC) 01/06/2016 - Type 2 diabetes mellitus without complication ([facility]) 02/12/2015 - Urinary tract infection, site not [...] directed, ulcer of left 1st metatarsal, measurement: [id number], Dx: E11.621, L97.522 lisinopril 2.5 mg tablet [...] DPM CNOV Observed: 08/11/2017 Status: COMPLETED Source: [place] 2:10 PM [facility] REPOSITORY Office Visit (PODIWS) DEBBY BAILON ([id number]) 1980 F Date Time Provider Department 08/11/17 2:10 PM GAVIN GOMEZ PODIWS During your visit today, we recorded the following information about you: rBittney Cook RN 08/11/2017 3:06 PM Signed Schedule with Lilly Villagran for diabetic shoes Lilly Green [address] [facility] [address] PH: [phone] Gavin Gomez DPM 08/12/2017 9:34 PM Signed [...] thoracic - Dysthymic disorder Depression (non-psychotic), sees TRAIN EXAMINER at [facility]. 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 Seeing Dr. Gregg - Numbness and tingling of left arm and leg 08/07/2013 - Panic attacks - Recurrent UTI 11/28/2011 - Spina bifida ([facility]) 01/06/2016 - Type 2 diabetes mellitus without complication ([facility]) 02/12/2015 - Urinary tract infection, site not specified Recurrent UTI's - Weakness of left upper extremity 08/07/2013 Current Outpatient Prescriptions: ciprofloxacin HCl (CIPRO) 250 mg tablet Take 500 mg by mouth twice daily. propranolol (INDERAL) 10 mg tablet Take 1 tablet by mouth twice daily. lancets (FREESTYLE LANCETS) 28 gauge [facility] Test blood sugar(s) 1-2 times daily. Dx: [...] directed, ulcer of left 1st metatarsal, measurement: [id number], Dx: E11.621, L97.522 lisinopril 2.5 mg tablet [...] Gavin Gomez DPM Referring Provider: GAVIN GOMEZ [[id number]] Allergies As of Date: 08/11/2017 Noted Allergy Reaction MRI CONTRAST (GADOLINIUM-CONTAINI*01/03/2017 8 - GI Upset MUSHROOM 06/10/2016 10 - Anaphylaxis PEANUTS 06/10/2016 10 - Anaphylaxis Date Reviewed: 08/11/2017 Reviewed by: Maranda Echeverria Ma - Fully Assessed Reason for Visit: Follow Up [171] Primary Visit Diagnosis:Ulcer of toe of left foot, with fat layer exposed ([facility]) [L97.522] Other Visit Diagnosis:Other diabetic neurological complication associated with type 2 diabetes mellitus (HCC) [E11.49] Order(s):DIAB SHOE FOR DENSITY INSERT [[id number]] Order #: [id number] Prescriptions as of 08/11/2017 Sig: CIPROFLOXACIN 250 [...] and lower extr*INVALID FOR*01/06/2016 Priority: D Lipomeningocele ([facility]) [Q05.9] INVALID FOR* Priority: B Lumbago [M54.5] INVALID FOR* Priority: M Neuropathy ([facility]) [G62.9] INVALID FOR* Priority: A More... Morbid obesity ([facility]) [E66.01] INVALID FOR* Priority: B Chronic pain [G89.29] INVALID FOR* Priority: M Neurogenic bladder [N31.9] INVALID FOR* Priority: B Hydronephrosis, right [N13.30] INVALID FOR* Priority: C History of kidney stones [Z87.442] INVALID FOR* Priority: C Spina bifida ([facility]) [Q05.9] INVALID FOR* Priority: B Neurogenic bowel [K59.2] INVALID FOR* Priority: B Primary insomnia [F51.01] INVALID FOR* Priority: A Type 2 diabetes mellitus with proteinuria ([facility])*INVALID FOR* Priority: A Pyelonephritis [N12] INVALID FOR* Diabetic eye exam ([facility]) [E11.9, Z01.00] INVALID FOR* Priority: A More... Migraine without aura and without status migrai*INVALID FOR* Priority: A Type 2 diabetes mellitus with albuminuria ([facility])*INVALID FOR* Priority: A Well adult exam [Z00.00] INVALID FOR* Priority: E More... Ulcer of left foot (HCC) [L97.529] INVALID FOR* Priority: M Paroxysmal SVT (supraventricular tachycardia) (*INVALID FOR* Priority: A More... Other instructions from your clinician: Schedule with [employer] for diabetic shoes [employer] [place] [address] [facility] [address] PH: [phone] Encounter Status:Closed by GAVIN GOMEZ DPM on 08/12/17 PROGRESS Observed: 08/08/2017 Status: COMPLETED Source: [place] 2:35 PM [facility] REPOSITORY HNO ID: [id number] Author: Naty Andrade Service: (none) Author Type: (none) Type: Progress Notes Filed: 08/08/2017 2:35 PM Note Text: pap logged, letter sent. Naty Sharma Psr PROGRESS Observed: 08/04/2017 Status: COMPLETED Source: [place] 11:50 AM [facility] REPOSITORY HNO ID: [id number] Author: Arielle Richards Service: (none) Author Type: (none) Type: Progress [...] IV DATA: Not applicable SIGNED BY: Arielle Richards August 04, 2017 11:50 AM MRI FOOT/TOES WO IVCON Observed: 08/04/2017 Status: F Source: [facility] 11:50 AM [facility] REPOSITORY * * *Final Report* * * DATE OF EXAM: Aug 04 2017 11:50AM [facility] 0194 - MRI FOOT/TOES WO IVCON [...] WITHOUT UNDERLYING EVIDENCE OF OSTEOMYELITIS OR ABSCESS. Sketcher: JACI Transcribe Date/Time: Aug 04 2017 12:08P Dictated by : RAMON ANDERSON MD This examination was interpreted and the report reviewed and electronically signed by: RAMON ANDERSON MD on Aug 04 2017 12:14PM EST [id number] CBC AND DIFFERENTIAL Collected: 08/04/2017 Status: F Source: [place] 10:13 AM [facility] REPOSITORY TYPE CODE TESTS RESULT OUT OF [...] k/uL Abs Lymph 2.81 LAB AMONO % [place]% 9.0 LAB AAMONO <0.87 k/uL Abs [place] High 1.03 LAB AEOS % Eosin% 3.8 LAB AAEOS <0.46 k/uL Abs Eosin 0.43 LAB ABASO % Baso% 0.8 LAB AABASO <0.11 k/uL Abs Baso 0.09 LAB AUNRBC 0 /100 WBC NRBCs 0.0 LAB ABNRBC <0.01 k/uL Absolute nRBC <0.01 LAB DTYP DTYPE Auto Diff Performed By: #### CBCDIF, WSR, CRP #### [facility] [address] [place] [address] SED RATE WESTERGREN Collected: 08/04/2017 Status: F Source: [place] 10:13 AM [facility] REPOSITORY TYPE CODE TESTS RESULT OUT OF REFERENCE UNITS RANGE LAB WSR 0-20 mm/hr Sed Rate High W[place]gren 27 Performed By: #### CBCDIF, WSR, CRP #### [facility] [employer] [address] [place] [address] C-REACTIVE PROTEIN Collected: 08/04/2017 Status: F Source: [place] 10:13 AM [facility] REPOSITORY TYPE CODE TESTS RESULT OUT OF REFERENCE UNITS RANGE LAB CRP <0.9 mg/dL C-Reactive 0.6 Protein Performed By: #### CBCDIF, WSR, CRP #### [place] [address] PROGRESS Observed: 08/02/2017 Status: COMPLETED Source: [place] 10:24 AM [facility] REPOSITORY HNO ID: [id number] Author: Gavin Gomez Service: (none) Author Type: [...] thoracic - Dysthymic disorder Depression (non-psychotic), sees TRAIN EXAMINER at [facility]. 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 Seeing Dr. Gregg - Numbness and tingling of left arm and leg 08/07/2013 - Panic attacks - Recurrent UTI 11/28/2011 - Spina bifida (HCC) 01/06/2016 - Type 2 diabetes mellitus without complication ([facility]) 02/12/2015 - Urinary tract infection, site not [...] twice daily. lancets (FREESTYLE LANCETS) [facility] Test blood sugar(s) 1-2 times daily. Dx: [...] directed, ulcer of left 1st metatarsal, measurement: [id number], Dx: E11.621, L97.522 lisinopril 2.5 mg tablet [...] DPM CNOV Observed: 08/02/2017 Status: COMPLETED Source: [place] 8:40 AM [facility] REPOSITORY Office Visit (PODIWS) DEBBY BAILON ([id number]) 1980 F Date Time Provider Department 08/02/17 [...] Depressive disorder, not elsewhere classified 11/28/[address] [facility] - DJD (degenerative joint disease), thoracic - Dysthymic disorder Depression (non-psychotic), sees TRAIN EXAMINER at [facility]. 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 Seeing Dr. Gregg - Numbness and tingling of left arm and leg 08/07/2013 - Panic attacks - Recurrent UTI 11/28/2011 - Spina bifida (HCC) 01/06/2016 - Type 2 diabetes mellitus without complication ([facility]) 02/12/2015 - Urinary tract infection, site not [...] twice daily. lancets (FREESTYLE LANCETS) 28 gauge [facility] [place] blood sugar(s) 1-2 times daily. Dx: [...] directed, ulcer of left 1st metatarsal, measurement: [id number], Dx: E11.621, L97.522 lisinopril 2.5 mg tablet [...] Gavin Gomez DPM Referring Provider: GAVIN GOMEZ [[id number]] Allergies As of Date: 08/02/2017 Noted Allergy [...] [E11.49] Order(s):CBC + DIFF [SQCBCDIF] Order #: [id number] FUTURE SED RATE WESTERGREN [SQWSR] Order #: [id number] FUTURE C-REACTIVE PROTEIN (CRP) [SQCRP] Order #: [id number] FUTURE MRI FOOT/TOES WO IVCON LT [[id number]] Order #: [id number] FUTURE Prescriptions as of 08/02/2017 Sig: METRONIDAZOLE [...] A Type 2 diabetes mellitus with proteinuria (FORMERLY [facility])*INVALID FOR* Priority: A Pyelonephritis [N12] INVALID FOR* Diabetic eye exam (FORM[facility]LY [facility]) [E11.9, Z01.00] INVALID FOR* Priority: A More... Migraine without aura and without status migrai*INVALID FOR* Priority: A Type 2 diabetes mellitus with albuminuria ([facility])*INVALID FOR* Priority: A Well adult exam [Z00.00] INVALID FOR* Priority: E More... Ulcer of left foot ([facility]) [L97.529] INVALID FOR* Priority: M Paroxysmal SVT [...] on 08/02/17 Observed: 07/28/2017 Status: F Source: [place] TRICHOMONAS PREP 2:33 PM [facility] REPOSITORY Sp. Request/Comment: - Swab Smear Result - Negative for Trichomonas vaginalis antigen This test was developed and its performance characteristics determined by [facility] [place] ([facility] It has not been cleared or approved by the FDA. [facility] is regulated under CLIA as qualified to perform high-complexity testing. This test is used for clinical purposes. It should not be regarded as investigational or for research. Performed By: #### TRICHO #### [facility] [address] [place], [place] [address] Observed: 07/28/2017 Status: F Source: [place] BACT/CAND VAG GRM ST 2:33 PM [facility] REPOSITORY Sp. Request/Comment: - Swab Smear Result - BACTERIAL VAGINOSIS RESULT: Stain results consistent with bacterial vaginosis. --> ABNORMAL ALERT No Yeast observed No Polymorphonuclear leukocytes Performed By: #### BVCNSM #### [facility] [address] [place], [place] [address] CYTOLOGY Observed: 07/28/2017 Status: C Source: [place] 2:33 [facility] REPOSITORY ADDITIONAL PROCEDURES PRESENT Specimen originated from [facility] Specimen #: [id number] Submitting Physician: MEGAN AMADOR CNM SPECIMEN SUBMITTED [...] from every slide are reviewed by a bag filler machine operator. TIGIST Pisano(ASCP) (Electronic Signature) ADDITIONAL PROCEDURE(S) HUMAN PAPILLOMA VIRUS Date Ordered: 08/01/2017 Date Reported: 08/02/2017 Procedure Results and Interpretation Negative for HPV DNA high risk type 16 by PCR. Negative for HPV DNA high risk type 18 by PCR. Negative for HPV DNA high risk types: 31,33,35,39,45,51,52,56,58,59,66,68 by PCR. This test was developed and its performance characteristics determined by [facility] [place] ([facility]). It has not been cleared or approved by the FDA. [facility] is regulated under CLIA as qualified to perform high-complexity testing. This test is used for clinical purposes. It should not be regarded as investigational or for research. CLINICAL DATA ROUTINE EXAM, HPV Testing: Yes, automatic HPV patients over 30 Date of Last Menstrual Period: 07/14/2017 STAINS A: CERVICAL, SCREENING, FLUID THIN PREP TOOTH POLISHER Taya Sierra M.D., Sql Report Developer Date of Report: 08/08/2017 Date of Procedure: 07/28/2017 Date of Receipt: 08/01/2017 Submitted by: MEGAN AMADOR CNM Location: [facility] Diagnostic interpretation performed at [facility], [address] [place] [address]. The Pap Smear is a screening test for cervical cancer. False negative results occur with all screening tests, emphasizing the need for rescreening at recommended intervals, and clinical correlation. PROGRESS Observed: 07/28/2017 Status: COMPLETED Source: [place] 2:02 PM [facility] REPOSITORY HNO ID: [id number] Author: Megan Amador Service: (none) Author Type: Rn Cvicu Type: Progress Notes Filed: 07/28/2017 5:32 PM [...] thoracic - Dysthymic disorder Depression (non-psychotic), sees TRAIN EXAMINER at [facility]. 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 Seeing Dr. Gregg - Numbness and tingling of left arm and leg 08/07/2013 - Panic attacks - Recurrent UTI 11/28/2011 - Spina bifida (HCC) 01/06/2016 - Type 2 diabetes mellitus without complication ([facility]) 02/12/2015 - Urinary tract infection, site not [...] external genitalia normal, normal Bartholin's glands, urethra, Baraga's glands, no vulvar lesions, no cervical lesions, [...] weeks after labs and U/S completed Megan Aamdor CNM GC/CHLAMYDIA AMPLIF Collected: 07/28/2017 Status: F Source: [place] 1:56 PM [facility] REPOSITORY TYPE CODE TESTS RESULT OUT OF REFERENCE UNITS RANGE LAB GCCTSR GC/Chlam Amp Cervix Source LAB GCAMPL GC Negative Amplification for Neisseria gonorrhoeae by amplification. LAB CLAMPL Chlamydia Negative Amplif for Chlamydia trachomatis by amplification. 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 [...] - Type 2 diabetes mellitus without complication ([facility]) 02/12/2015 - Urinary tract infection, site not [...] external genitalia normal, normal Bartholin's glands, urethra, Baraga's glands, no vulvar lesions, no cervical lesions, [...] Naty Sharma Psr Referring Provider: WILL DIETZ [[id number]] Allergies As of Date: 07/28/2017 Noted Allergy Reaction MRI CONTRAST (GADOLINIUM-CONTAINI*01/03/2017 8 - GI Upset MUSHROOM 06/10/2016 10 - Anaphylaxis PEANUTS 06/10/2016 10 - Anaphylaxis Date Reviewed: 07/28/2017 Reviewed by: Megan Amador - Fully Assessed Reason for Visit: Irregular Menstrual Cycle [278] Primary Visit Diagnosis:Screening for STD (sexually transmitted disease) [Z11.3] Other Visit Diagnoses:Screening for cervical cancer [Z12.4] Encounter for screening for human papillomavirus (HPV) [Z11.51] Pelvic pain in female [R10.2] Menorrhagia with irregular cycle [N92.1] Metrorrhagia [N92.1] Vaginal discharge [N89.8] Irregular menses [N92.6] Order(s):PAP FLUID CERVICAL SCREENING [[id number]] Order #: [id number]. #:[id number] BACT/NANO VAG GRAM STAIN [SQBVCNSM] Order #: [id number] FUTURE GC/CHLAMYDIA DNA DET [SQGCCAMP] Order #: [id number]. #:[id number] TRICHOMONAS PREP [SQTRICHO] Order #: [id number]. #:[id number] CBC + DIFF [SQCBCDIF] Order #: [id number] FUTURE PROLACTIN BLD [SQPROL] Order #: [id number] FUTURE TSH BLD [SQTSH] Order #: [id number] FUTURE HPV W/GENOTYPE [SQHPVHRR] Order #: [id number]. #:[id number] Prescriptions as of 07/28/2017 Sig: CIPROFLOXACIN 250 [...] and lower extr*INVALID FOR*01/06/2016 Priority: D Lipomeningocele ([facility]) [Q05.9] INVALID FOR* Priority: B Lumbago [M54.5] INVALID FOR* Priority: M Neuropathy ([facility]) [G62.9] INVALID FOR* Priority: A More... Morbid obesity ([facility]) [E66.01] INVALID FOR* Priority: B Chronic pain [G89.29] INVALID FOR* Priority: M Neurogenic bladder [N31.9] INVALID FOR* Priority: B Hydronephrosis, right [N13.30] INVALID FOR* Priority: C History of kidney stones [Z87.442] INVALID FOR* Priority: C Spina bifida ([facility]) [Q05.9] INVALID FOR* Priority: B Neurogenic bowel [K59.2] INVALID FOR* Priority: B Primary insomnia [F51.01] INVALID FOR* Priority: A Type 2 diabetes mellitus with proteinuria ([facility])*INVALID FOR* Priority: A Pyelonephritis [N12] INVALID FOR* Diabetic eye exam ([facility]) [E11.9, Z01.00] INVALID FOR* Priority: A More... Migraine without aura and without status migrai*INVALID FOR* Priority: A Type 2 diabetes mellitus with albuminuria ([facility])*INVALID FOR* Priority: A Well adult exam [Z00.00] [...] History Recorded Letter [facility] [address] [place], [place] [address] [place] [address] [facility] [address] 08/08/2017 C[facility]: [id number] Dear Debby, We are pleased to inform [...] a.m. and 5:00 p.m. Sincerely, Megan Amador [facility] Encounter Status:Closed by MEGAN AMADOR on 07/28/17 HPV W/GENOTYPE Collected: 07/28/2017 Status: F Source: [place] 4:56 AM [facility] REPOSITORY TYPE CODE TESTS [...] developed and its performance characteristics determined by [facility] [place] ([facility]). It has not been cleared or approved by the FDA. [facility] is regulated under CLIA as qualified to perform high-complexity testing. This test is used for clinical purposes. It should not be regarded as inv estigational or for research. Performed By: #### HPVHRR #### [facility] [address] [place], [place] [address] PROGRESS Observed: 07/27/2017 Status: COMPLETED Source: [place] 12:34 PM [facility] REPOSITORY HNO ID: [id number] Author: Maranda Echeverria Ma Service: (none) Author Type: (none) Type: Progress Notes Filed: 07/27/2017 12:35 PM Note Text: L foot ulcer irrigated with betadine saline solution. Applied Praveena to ulcer. Covered with 4x4 and herson. Patient given diabetic offloading shoe with peg assist insert. Maranda Echeverria Ma CBC AND DIFFERENTIAL Collected: 07/27/2017 Status: F Source: [place] 11:52 AM [facility] REPOSITORY TYPE CODE TESTS RESULT OUT OF [...] k/uL Abs Lymph 2.63 LAB AMONO % Culberson% 9.4 LAB AAMONO <0.87 k/uL Abs [place] High 1.05 LAB AEOS % Eosin% 2.6 LAB AAEOS <0.46 k/uL Abs Eosin 0.29 LAB ABASO % Baso% 0.9 LAB AABASO <0.11 k/uL Abs Baso 0.10 LAB AUNRBC 0 /100 WBC NRBCs 0.0 LAB ABNRBC <0.01 k/uL Absolute nRBC <0.01 LAB DTYP DTYPE Auto Diff Performed By: #### CBCDIF, CRP, WSR #### [place] [address] [place] [address] C-REACTIVE PROTEIN Collected: 07/27/2017 Status: F Source: [place] 11:52 AM [facility] REPOSITORY TYPE CODE TESTS RESULT OUT OF REFERENCE UNITS RANGE LAB CRP <0.9 mg/dL High C-Reactive 0.9 Protein Performed By: #### CBCDIF, CRP, WSR #### [place] [address] SED RATE WESTERGREN Collected: 07/27/2017 Status: F Source: [place] 11:52 AM [facility] REPOSITORY TYPE CODE TESTS RESULT OUT OF REFERENCE UNITS RANGE LAB WSR 0-20 mm/hr Sed Rate High Westergren 40 Performed By: #### CBCDIF, CRP, WSR #### [place] [address] PROLACTIN Collected: 07/27/2017 Status: F Source: [place] 11:52 AM [facility] REPOSITORY TYPE CODE TESTS RESULT OUT OF REFERENCE UNITS RANGE LAB PROL 4.5-26.8 ng/mL Prolactin 18.7 Performed By: #### PROL, TSH #### [place] [address] TSH Collected: 07/27/2017 Status: F Source: [place] 11:52 AM [facility] REPOSITORY TYPE CODE TESTS RESULT OUT OF [...] Clinical Practice Guideline. J Clin Endocrinol Metab, 2012:97:3588-5183. 2. Jez DS. Overview of thyroid disease in . UpToDate. 2016. Accessed on November 13, 2015. Performed By: #### PROL, TSH #### [facility] [address] [place], [place] [address] XR FOOT 3V AP/LAT/OBL Observed: 07/27/2017 Status: F Source: [facility] 11:38 AM [facility] REPOSITORY * * *Final Report* * * [...] FIFTH METATARSAL. HALLUX VALGUS WITH BUNION DEFORMITY. Sketcher: PSCJena Transcribe Date/Time: Jul 27 2017 12:52P Dictated by : OG BRIDGES MD This examination was interpreted and the report reviewed and electronically signed by: OG BRIDGES MD on Jul 27 2017 12:54PM EST [id number] PROGRESS Observed: 07/27/2017 Status: COMPLETED Source: [place] 11:32 AM [facility] REPOSITORY HNO ID: [id number] Author: Morena Moran (Rt) Amee Burnette Service: (none) Author Type: Farm Laborer Type: Progress Notes Filed: 07/27/2017 11:39 AM [...] AM PROGRESS Observed: 07/27/2017 Status: COMPLETED Source: [place] 10:44 AM [facility] REPOSITORY [facility] ID: [id number] Author: Gavin Gomez Service: (none) Author Type: [...] thoracic - Dysthymic disorder Depression (non-psychotic), sees TRAIN EXAMINER at [facility]. 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 Seeing Dr. Gregg - Numbness and tingling of left arm and leg 08/07/2013 - Panic attacks - Recurrent UTI 11/28/2011 - Spina bifida ([facility]) 01/06/2016 - Type 2 diabetes mellitus without complication ([facility]) 02/12/2015 - Urinary tract infection, site not [...] directed, ulcer of left 1st metatarsal, measurement: [id number], Dx: E11.621, L97.522 lisinopril 2.5 mg tablet [...] DPM CNOV Observed: 07/27/2017 Status: COMPLETED Source: [place] 10:25 AM [facility] REPOSITORY Office Visit (PODIWS) DEBBY BAILON ([id number]) 1980 F Date Time Provider Department 07/27/17 10:25 AM GAVIN GOMEZ PODIWS During your visit [...] Depressive disorder, not elsewhere classified 11/28/[address] [facility] - DJD (degenerative joint disease), thoracic - Dysthymic disorder Depression (non-psychotic), sees TRAIN EXAMINER at [facility]. 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 Seeing Dr. Gregg - Numbness and tingling of left arm and leg 08/07/2013 - Panic attacks - Recurrent UTI 11/28/2011 - Spina bifida ([facility]) 01/06/2016 - Type 2 diabetes mellitus without complication ([facility]) 02/12/2015 - Urinary tract infection, site not [...] directed, ulcer of left 1st metatarsal, measurement: [id number], Dx: E11.621, L97.522 lisinopril 2.5 mg tablet [...] diabetic offloading shoe with peg assist insert. Maarnda Echeverria Ma Referring Provider: WILL DIETZ [[id number]] Allergies As of Date: 07/27/2017 Noted Allergy Reaction MRI CONTRAST (GADOLINIUM-CONTAINI*01/03/2017 8 - GI Upset MUSHROOM 06/10/2016 10 - Anaphylaxis PEANUTS 06/10/2016 10 - Anaphylaxis Date Reviewed: 07/27/2017 Reviewed by: Brittney Cook RN - Fully Assessed Reason for Visit: Callus [Other] Primary Visit Diagnosis:Ulcer of toe of left foot, with fat layer exposed (HCC) [L97.522] Order(s):XR FOOT GENERAL 3V AP/LAT/OBL LT [[id number]] Order #: [id number] FUTURE KNEE WALKER [3224588] Order #: [id number] CBC + DIFF [SQCBCDIF] Order #: [id number] FUTURE SED RATE WESTERGREN [SQWSR] Order #: [id number] FUTURE C-REACTIVE PROTEIN (CRP) [SQCRP] Order #: [id number] FUTURE Prescriptions as of 07/27/2017 Sig: CIPROFLOXACIN [...] and lower extr*INVALID FOR*01/06/2016 Priority: D Lipomeningocele ([facility]) [Q05.9] INVALID FOR* Priority: B Lumbago [M54.5] INVALID FOR* Priority: M Neuropathy ([facility]) [G62.9] INVALID FOR* Priority: A More... Morbid obesity ([facility]) [E66.01] INVALID FOR* Priority: B Chronic pain [G89.29] INVALID FOR* Priority: M Neurogenic bladder [N31.9] INVALID FOR* Priority: B Hydronephrosis, right [N13.30] INVALID FOR* Priority: C History of kidney stones [Z87.442] INVALID FOR* Priority: C Spina bifida ([facility]) [Q05.9] INVALID FOR* Priority: B Neurogenic bowel [K59.2] INVALID FOR* Priority: B Primary insomnia [F51.01] INVALID FOR* Priority: A Type 2 diabetes mellitus with proteinuria ([facility])*INVALID FOR* Priority: A Pyelonephritis [N12] INVALID FOR* Diabetic eye exam ([facility]) [E11.9, Z01.00] INVALID FOR* Priority: A More... [...] EMERGENCY DEPARTMENT Observed: 07/25/2017 Status: F Source: [place] SUMMARY 11:33 AM [facility] REPOSITORY [facility] Medical Records Department [address] [place] [address] Emergency Department Summary 07/25/17 1130 MR#: [id number] Acct: [id number] Name: DEBBY BAILON Rep #: [id number] : 1980 36 From: Bobby Lee MD [...] Impression: Constipation This note was generated with Schvey dictation software. It may contain incorrect words, [...] problems, contact your Primary Care Provider. Call [facility] ([phone]) or report to the closest Emergency Room. Call 911 if necessary. 07/25/17 1133 <Electronically signed by Bobby Lee MD> Date Bobby Lee MD Cosigner Signature (If Indicated): Date CC: Will Dietz MD DISCHARGE INSTRUCTION Observed: 07/25/2017 Status: F Source: [place] 11:33 AM [facility] REPOSITORY [facility] Medical Records Department [address] [place] [address] Discharge Instruction 07/25/17 1133 MR#: [id number] Acct: [id number] Name: DEBBY BAILON Colette Rep #: [id number] : 1980 36 From: Bobby Lee MD [...] your Primary Care Provider. Call [facility] ([phone]) or report to the closest Emergency Room. Call 911 if necessary. 07/25/17 1133 <Electronically signed by Bobby Lee MD> Date Bobby Lee MD Cosigner Signature (If Indicated): Date CC: Will Dietz MD CBC W/DIFF, AUTOMATED Collected: 07/25/2017 Status: F Source: [place] 10:27 AM [facility] REPOSITORY TYPE CODE TESTS RESULT OUT OF [...] Lymph 2.18 Performed By: #### L100.0100 #### [facility] [address] [place], [address] COMPREHENSIVE METABOLIC Collected: 07/25/2017 Status: F Source: [facility] 10:27 AM [facility] REPOSITORY TYPE CODE TESTS RESULT OUT OF [...] 4 Performed By: #### L500.4050, L501.2450 #### [facility] [address] [place], [address] LIPASE Collected: 07/25/2017 Status: F Source: [place] 10:27 AM [facility] REPOSITORY TYPE CODE TESTS RESULT OUT OF RANGE REFERENCE UNITS LAB L501.2450 73-393 U/L Normal LIPASE 173 Performed By: #### L500.4050, L501.2450 #### [facility] [address] [place], [address] ,URINE Collected: 07/25/2017 Status: F Source: [place] 10:20 AM [facility] REPOSITORY Order Comment: Order Date: 07/25/17 TYPE CODE TESTS RESULT OUT OF REFERENCE UNITS RANGE LAB L400.8000 Negative Normal HCGUQUAL Negative Result Comment: Very dilute urine specimens, as indicated by a low specific gravity, may not contain sales representative printing supplies levels of hCG. If is still suspected, a first morning urine specimen should be collected 48 hours later and tested. Performed By: #### L400.7600 #### [facility] [address] [place], [address] URINALYSIS, COMPLETE Collected: 07/25/2017 Status: F Source: [place] 10:20 AM [facility] REPOSITORY Order Comment: Order Date: 07/25/17 How [...] URINE SEEN Performed By: #### L400.0001 #### [facility] [address] [facility] [place], [place], [address] ACUTE ABDOMEN INC Observed: 07/25/2017 Status: F Source: [facility] 10:15 AM [facility] REPOSITORY [facility] Imaging Services [address] [place] [address] Acute Abdomen Inc Chest MR#: [id number] Acct: [id number] Name: DEBBY BAILON Rep #: [id number] : 1980 F 36 From: Stephan Sood MD PCP: Will Dietz MD Status: REG ER Study: Acute Abdomen Inc Chest Date of Exam: 07/25/17 Exam# [id number] Ordering Dr: Bobby Lee MD STUDY: X-RAY [...] Stephan Sood MD at 11:15 EST Tel [phone], Service support , CC: Will Dietz MD; Bobby Lee MD Sketcher: Signed EMERGENCY DEPARTMENT Observed: 07/22/2017 Status: F Source: [place] SUMMARY 6:43 PM [facility] REPOSITORY [facility] Medical Records Department [address] [place] [address] Emergency Department Summary 07/22/17 1756 MR#: [id number] Acct: [id number] Name: DEBBY BAILON Rep #: [id number] : 1980 36 From: Dre Deal MD PCP: Will Dietz MD Status: REG ER - ER Visit Summary Date of Service: 07/22/17 Chief Complaint: Left foot pain radiating to knee and urinary symptoms History of Present Illness: The patient is a 36 F who was seen earlier this week for left foot pain. 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 She denies fever, chills night sweats. She [...] her callus. Treatment Plan: Keep appointment with string winding machine operator and if she continues to have urologic symptoms follow-up with her primary care physician Dr. Will Dietz Disposition: Discharge to home Impression: 1. Left foot pain secondary to callus plantar surface 2. Hyperglycemia in type II diabetic This note was generated with Schvey dictation software. It may contain incorrect words, spelling, and punctuation that were not noted in review of the chart prior to signing ED Disposition - Plan for ED Patient: Disposition: Home or Assisted Living Chief Complaint: Wound Instructions: Treating Corns and Calluses, ED Hyperglycemia Diabetic Referrals: Will Dietz MD [Primary Care Provider] - As Needed Additional Instructions: Keep appointment with string winding machine operator to remove your callus. What to do if you have Problems For any increased pain, shortness of breath, bleeding, nausea or vomiting, chest pain, or any unexpected problems, contact your Primary Care Provider. Call [facility] ([phone]) or report to the closest Emergency Room. Call 911 if necessary. 07/22/17 5017 <Electronically signed by Dre Deal MD> Date Dre Deal MD Cosigner Signature (If Indicated): Date CC: Will Dietz MD BEDSIDE GLUCOSE Collected: 07/22/2017 Status: F Source: NORMA 6:39 PM [facility] REPOSITORY TYPE CODE TESTS RESULT OUT OF REFERENCE UNITS RANGE LAB L501.080 70-110 mg/dL High BEDSIDE GLU 187 Result Comment: MANAGEMENT OF PATIENT CARE PER NURSING PROTOCOL Performed By: #### L501.080 #### [facility] Point of Care [address] [place] [address] URINALYSIS, COMPLETE Collected: 07/22/2017 Status: F Source: NORMA 6:00 PM [facility] REPOSITORY Order Comment: Order Date: 07/22/17 Has [...] URINE SEEN Performed By: #### L400.0001 #### [facility] [address] [place], [address] EMERGENCY DEPARTMENT Observed: 07/19/2017 Status: F Source: PALMYRA SUMMARY 2:52 AM [facility] REPOSITORY [facility] Medical Records Department [address] [place] [address] Emergency Department Summary 07/18/17 1510 MR#: [id number] Acct: [id number] Name: DEBBY BAILON Rep #: [id number] : 1980 36 From: Celine Caputo MD [...] strict foot care and follow-up with her string winding machine operator in the next 3 days. Disposition: Discharge Impression: 1. Diabetic foot wound This note was generated with VTMation software. It may contain incorrect words, spelling, and punctuation that were not noted in review of the chart prior to signing ED Disposition - Plan for ED Patient: Chief Complaint: Wound Diagnosis: Wound, open, foot Instructions: ED Foot Care Diabetic Prescriptions: Ciprofloxacin [Cipro] 500 mg PO BID #14 tab Additional Instructions: Followup with your string winding machine operator within the next 3 days What to do if you have Problems For any increased pain, shortness of breath, bleeding, nausea or vomiting, chest pain, or any unexpected problems, contact your Primary Care Provider. Call [facility] ([phone]) or report to the closest Emergency Room. Call 911 if necessary. 07/19/17 0252 <Electronically signed by Celine Caputo MD> Date Celine Caputo MD Cosigner Signature (If Indicated): Date CC: Will Dietz MD STRESS TEST ECHO W/O Observed: 07/18/2017 Status: F Source: NORMA CONTRAST 5:32 PM [facility] REPOSITORY [facility] Cardiovascular Services [address] [place] [address] 32451 Stress Test Echo W/Contrast MR#: [id number] Acct: [id number] Name: DEBBY BAILON Rep #: [id number] : 1980 36 From: Jayson Alvarez MD [...] Date Dictated: 07/18/17 1303 Date Transcribed: 07/18/171730 Sketcher: Signed ECHOCARDIOGRAM COMPLETE Observed: 06/28/2017 Status: F Source: PALMYRA 2:20 PM [facility] REPOSITORY [facility] Cardiovascular Services [address] [place] [address] 42599 Echo Complete 06/28/17 1057 MR#: [id number] Acct: [id number] Name: UVALDODEBBY Colette Rep #: [id number] : 1980 36 From: Nemesio Barriga MD Attending Dr: Will Dietz MD Status: REG CLI Ordering Dr: Will Dietz MD Date: 06/28/17 Location: N Sex: F C Admitted: Reason For Study: [...] Ordering Physician: Will Dietz Performed By: Nicole Price, AMEIRCA, RVT 06/28/17 1419 Date Nemesio Barriga MD CC: Will Dietz MD Date Dictated: 06/28/17 1057 Date Transcribed: 06/28/17 1419 Sketcher: Signed ISAEL Observed: 06/23/2017 Status: COMPLETED Source: FAWN 11:00 AM [facility] REPOSITORY Office Visit (FAMPWS) DEBBY BAILON ([id number]) 1980 F Date Time Provider Department 06/23/17 11:00 AM WILL DIETZ During your visit today, [...] thoracic - Dysthymic disorder Depression (non-psychotic), sees TRAIN EXAMINER at [facility]. 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 - Lumbago 02/12/2015 - Migraine - Morbid obesity ([facility]) 02/12/2015 - Muscle weakness of left lower extremity 08/07/2013 - Neck pain 05/02/2013 - Neurogenic bladder 02/12/2015 - Neurogenic bladder - Neurogenic bowel 01/06/2016 - Neuropathy ([facility]) 02/12/2015 post back surgery with secondary infection. Seeing Dr. Gregg - Numbness and tingling of left arm and leg 08/07/2013 - Panic attacks - Recurrent UTI 11/28/2011 - Spina bifida ([facility]) 01/06/2016 - Type 2 diabetes mellitus without complication ([facility]) 02/12/2015 - Urinary tract infection, site not [...] directed, ulcer of left 1st metatarsal, measurement: 3jaf7ybv0kw, Dx: E11.621, L97.522 No current facility-administered medications on file prior to visit. 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 Neuropathy (HCC) - ICD9: 355.9, ICD10: [...] to next visit. Referring Provider: WILL DIETZ [[id number]] Allergies As of Date: 06/23/2017 Noted Allergy [...] Insulin: NoDisp: 100 EachRfl: 11 CONSULT TO FIELD AIDE [9021] Order #: [id number]: 1 ECG COMPLETE W INTERPRETATION [ECG01] Order #: [id number] FUTURE ECHO [138587] Order #: [id number]: 1 FUTURE STRESS REGULAR W/TREAD [3177887] Order #: [id number]: 1 SPIROMETRY - BASELINE AND POST DILATOR [1703770] Order #: [id number] FUTURE DULoxetine (CYMBALTA) 30 mg capsuleTake 1 capsule by mouth once daily.Disp: 30 capsuleRfl: 5 metFORMIN ER (GLUCOPHAGE XR) 500 mg 24 hr tabletTake 2 tablets by mouth twice daily.Disp: 120 tabletRfl: 5 propranolol (INDERAL) 10 mg tabletTake 1 tablet by mouth once daily.Disp: 30 tabletRfl: 5 HOLTER MONITOR 48 HOUR [0193831] Order #: [id number] FUTURE COMP METABOLIC PANEL [SQCMP] Order #: [id number] FUTURE HGB A1C [RQUOE8Q] Order #: [id number] FUTURE LIPID PANEL BASIC [SQLIPB] Order #: [id number] FUTURE zolpidem (AMBIEN) 5 mg tabletTake 1 [...] and lower extr*INVALID FOR*01/06/2016 Priority: D Lipomeningocele ([facility]) [Q05.9] INVALID FOR* Priority: B Lumbago [M54.5] INVALID FOR* Priority: M Neuropathy ([facility]) [G62.9] INVALID FOR* Priority: A More... Morbid obesity ([facility]) [E66.01] INVALID FOR* Priority: B Chronic pain [G89.29] INVALID FOR* Priority: M Neurogenic bladder [N31.9] INVALID FOR* Priority: B Hydronephrosis, right [N13.30] INVALID FOR* Priority: C History of kidney stones [Z87.442] INVALID FOR* Priority: C Spina bifida ([facility]) [Q05.9] INVALID FOR* Priority: B Neurogenic bowel [K59.2] INVALID FOR* Priority: B Primary insomnia [F51.01] INVALID FOR* Priority: A Type 2 diabetes mellitus with proteinuria ([facility])*INVALID FOR* Priority: A Pyelonephritis [N12] INVALID FOR* Diabetic eye exam ([facility]) [E11.9, Z01.00] INVALID FOR* Priority: A More... 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 Ulcer of left foot (HCC) [L97.529] INVALID FOR* Priority: M Other instructions [...] 06/23/17 PROGRESS Observed: 06/23/2017 Status: COMPLETED Source: [place] 10:54 AM [facility] REPOSITORY O ID: [id number] Author: Will Dietz Service: (none) Author Type: [...] thoracic - Dysthymic disorder Depression (non-psychotic), sees TRAIN EXAMINER at [facility]. 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 [...] directed, ulcer of left 1st metatarsal, measurement: 6mso0bdi1xd, Dx: E11.621, L97.522 No current facility-administered medications on file prior to visit. 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 Neuropathy (HCC) - ICD9: 355.9, ICD10: [...] face was 40 min Will Dietz MD ALLERGIES ALLERGIES DATE TYPE / CODE NAME / CODE REACTION SEVERITY SOURCE 06/15/2018 Drug Gadolinium-MRI Vomiting Unknown [place] Allergy/416 Contrast [facility] 877650([facility] Medium/K6688990 [facility] ED CT) 59(RXNORM) Repository 06/15/2018 Drug peanut/Q0802244 Anaphylaxis Unknown [place] Allergy/416 68(RXNORM) [facility] 498624([facility] ED CT) Repository 06/15/2018 Drug mushroom/H56648 Anaphylaxis Unknown [place] Allergy/416 6188(RXNORM) [facility] 521248([facility] ED CT) Repository 01/03/2017 Drug GADOLINIUM-CONT GI UPSET Low [facility] Class/34642 AINING CONTRAST [place] 1003(SNOMED MEDIA Repository CT) 01/03/2017 Drug GADOLINIUM-CONT GI UPSET [facility] Class/71115 AINING CONTRAST [place] 1003(SNOMED MEDIA Repository CT) 06/10/2016 DRUG MUSHROOM ANAPHYLAXIS High [facility] INGREDI/419 [place] 166765(SNOM Repository ED CT) 06/10/2016 Food/796203 PEANUTS ANAPHYLAXIS [facility] 000(SNOMED [place]) Repository 06/10/2016 DRUG MUSHROOM ANAPHYLAXIS [facility] INGREDI/419 [place] 081489(SNOM Repository ED CT) 06/10/2016 Food/277584 PEANUTS ANAPHYLAXIS [facility] 000(SNOMED [place]) Repository 08/13/2015 DRUG MUSHROOM [facility] INGREDI/419 [facility] 426693(SNOM Repository ED CT) 08/06/2015 DRUG PEANUT ALLERGY [facility] [address] 207724(SNOM Repository ED CT) NG/03941927 GADOLINIUM-CONT [facility] 6(SNOMED AINING CONTRAST [facility]) MEDIA Repository NG/87382358 MUSHROOM [facility] 6(SNOMED [facility] CT) Repository NG/77931082 PEANUTS [facility] 6([facility] System CT) Repository ENCOUNTERS ENCOUNTERS ADMIT/DISCHARGE ACCOUNT NUMBER ADMITTING ENCOUNTER LOCATION SOURCE CLASS 06/18/2018/06/18/19 [id number] Ambulatory [address] [place] Repository 06/15/2018/06/15/19 [id number] Emergency [address] ding:ED Repository 06/05/2018/06/05/19 [id number] Emergency [address] ding:ED Repository 05/25/2018/05/25/20 [id number] Emergency BBuilding:ER [address] Repository 05/11/2018/05/11/20 [id number] Emergency [address] ding:ED Repository 05/09/2018/05/10/20 [id number] Ambulatory [address] Repository 05/03/2018/05/04/20 [id number] Ambulatory [address] Repository 04/30/2018/04/30/20 [id number] Ambulatory [address] Repository 04/26/2018/05/01/20 [id number] Ambulatory [address] Repository 04/24/2018/04/24/20 [id number] Emergency [address] ding:ED Repository 04/23/2018/04/23/20 [id number] Emergency [address] ding:ED Repository 04/14/2018/04/14/20 [id number] Emergency [address] ding:ED Repository 04/13/2018/04/13/20 [id number] Emergency [address] ding:ED Repository 04/11/2018/04/12/20 [id number] [place], Ambulatory Norm[place] 18 [place] [facility] ding:BG2Hgtk Repository : JH331Skv: 1 04/11/2018 [id number] [place], Ambulatory BMSBuilding: [place] [facility] Repository 04/11/2018 [id number] [place], Ambulatory BMSBuilding: [place] [facility] Repository 04/09/2018/04/09/20 [id number] Emergency [place] [address] [place] [address] ding:ED Repository 04/04/2018/04/05/20 [id number] Ambulatory [address] Repository 03/23/2018 [id number] Ambulatory [facility] ding:MRI Repository 03/22/2018/03/23/20 [id number] Emergency [address] ding:ED Repository 03/19/2018/03/20/20 [id number] Emergency [address] ding:ED Repository 03/15/2018/03/15/20 [id number] Ambulatory [address] Repository 03/15/2018/03/15/20 [id number] Ambulatory [address] Repository 03/15/2018/03/15/20 [id number] Ambulatory [address] Repository 03/15/2018/03/15/20 [id number] Ambulatory [address] Repository 03/14/2018/03/14/20 [id number] Emergency [address] ding:ED Repository 03/07/2018/03/08/20 [id number] Ambulatory [address] Repository 03/06/2018/03/07/20 [id number] Emergency [place] ding:ED Repository 03/03/2018/03/03/20 [id number] Emergency [address] ding:ED Repository 02/28/2018/03/01/20 [id number] Ambulatory [address] Repository 02/26/2018/02/27/20 [id number] Emergency BBuilding:[place]AGAN Day [address] [place] [address] Repository 02/25/2018/02/27/20 [id number] Emergency [place] ding:ED Repository 02/23/2018/02/24/20 [id number] Ambulatory [address] ding:PT Repository 02/16/2018/02/17/20 [id number] Emergency [address] ding:ED Repository 02/14/2018/02/15/20 [id number] Emergency [place] ding:ED Repository 02/13/2018/02/14/20 [id number] Ambulatory [address] [place] Repository 01/30/2018/01/31/20 [id number] Ambulatory BMSBuilding: Norma 18 [facility] Repository 01/30/2018/01/31/20 [id number] Emergency [address] ding:ED Repository 01/30/2018/02/01/20 [id number] Ambulatory [address] [place] Repository 01/23/2018 [id number] Ambulatory [facility] ding:LABSPEC Repository 01/23/2018/01/24/20 [id number] Ambulatory BMSBuilding: [place] 18 [facility] Repository 01/21/2018/01/22/20 [id number] Emergency [address] ding:ED Repository 01/18/2018/01/19/20 [id number] Ambulatory BMSBuilding: [place] 18 [facility] Repository 01/08/2018/01/10/20 [id number] Ambulatory [address] [place] Repository 01/02/2018/01/03/20 [id number] Ambulatory [address] [place] Repository 01/02/2018/01/03/20 [id number] Ambulatory [address] MEDICAL Repository CENTERBuildi ng:AGGENS1 01/01/2018/01/02/20 [id number] Ambulatory [address] [place] Repository 12/26/2017/12/27/19 [id number] Emergency [address] [place] Repository 12/26/2017/12/27/19 [id number] Emergency [address] MEDICAL Repository CENTERBuildi ng:AKEDRoom: EMBed: 35 12/24/2017/12/25/19 [id number] Emergency [address] ding:ED Repository 12/20/2017/12/21/19 [id number] Emergency [address] ding:ED Repository 12/17/2017/12/19/19 [id number] Emergency [place] ding:ED Repository 12/16/2017/12/17/19 [id number] [place], Emergency Norma[address] ding:EDRoom: Repository OFH347 12/11/2017/12/13/19 [id number] ANNE CHRISTENSEN Ambulatory [address] Repository 12/11/2017/12/13/19 [id number] ANNE CHRISTENSEN Inpatient [address] MEDICAL Repository [facility] Limaildi nARoom: 5217Bed: 12/01/2017/12/02/19 [id number] Ambulatory [address] Repository 12/01/2017/12/02/19 [id number] Ambulatory [address] MEDICAL Repository LOGSDENBuildi ng:AKPAT 11/07/2017/11/09/19 [id number] Emergency [address] ding:ED Repository 11/07/2017/11/08/19 [id number] Ambulatory Building:[address] Repository 10/25/2017/10/26/19 [id number] Ambulatory [address] Repository 10/25/2017/10/27/19 [id number] Ambulatory [address] Repository 10/17/2017/10/18/19 [id number] Ambulatory [address] [place] Repository 10/17/2017/10/18/19 [id number] Ambulatory [address] MEDICAL Repository [facility] Limaildi ng:AGGENS1 10/14/2017/10/15/19 [id number] Emergency [place] ding:ED Repository 10/10/2017/10/11/19 [id number] Ambulatory [place] 18 [facility] [place] Repository 10/05/2017/10/10/19 [id number] Ambulatory [place] 18 [facility] [place] Repository 09/15/2017/09/16/19 [id number] Emergency [place] ding:ED Repository 09/12/2017/09/15/19 [id number] Ambulatory [place] 18 [facility] [place] Repository 08/22/2017/08/23/19 [id number] Emergency [place] ding:ED Repository 08/11/2017/08/15/19 [id number] Ambulatory [place] [facility] [place] Repository 08/04/2017/08/05/19 [id number] Ambulatory [place] 18 [facility] [place] Repository 08/04/2017/08/05/19 [id number] Ambulatory [place] [facility] [place] Repository 08/02/2017/08/09/19 [id number] Ambulatory [place] [facility] [place] Repository 07/28/2017/07/29/19 [id number] Ambulatory [place] [facility] [place] Repository 07/28/2017/08/02/19 [id number] Ambulatory [place] [facility] [place] Repository 07/27/2017/07/28/19 [id number] Ambulatory [place] [facility] [place] Repository 07/27/2017/07/28/19 [id number] Ambulatory [place] [facility] [place] Repository 07/27/2017/11/11/19 [id number] Ambulatory [place] 18 [facility] [place] Repository 07/25/2017/07/25/19 [id number] Emergency [place] ding:ED Repository 07/22/2017/07/22/19 [id number] Emergency [address] ding:ED Repository 07/18/2017/07/18/19 [id number] Emergency [address] ding:ED Repository 07/18/2017 [id number] Ambulatory [facility] ding:[facility]S Repository 07/18/2017 [id number] Ambulatory BMSBuilding: [facility] Repository 06/28/2017 [id number] Ambulatory [facility] ding:PSN Repository 06/28/2017 [id number] Ambulatory BMSBuilding: [facility] Repository 06/28/2017 [id number] Ambulatory BMSBuilding: [facility] Repository 06/23/2017/06/23/19 [id number] Ambulatory [address] Repository PAYERS PAYERS ENCOUNTER GUARANTOR PAYER SUBSCRIBER SOURCE 06/15/2018 DEBBY Alvarenga Primary DEBBY Green [id number] Insurance:MEDICARE BRENNEMANDOB: [facility] PART A [facility] [id number], [place] Number: Repository [address]Mrt: 330 [id number] [phone] () Date:2018-06-15 06/15/2018 Secondary DEBBY L Norm[place] Insurance:MEDICAIDPol BRENNEMANDOB: [facility] icy Number: [id number] Hospital [id number] Repository Date:2018-06-15 06/15/2018 Tertiary NOT GIVENUNK [place] Insurance:SELF PAY [facility] Number: Effective Repository Date:2018-06-15 06/05/2018 DEBBY Alvarenga Primary DEBBY Green [id number] Insurance:MEDICARE BRENNEMANDOB: [facility] PART A [facility] [id number], [place] Number: Repository [address]Znd: 330 [id number] [phone] () Date:2018-06-05 06/05/2018 Secondary DEBBY L [place] Insurance:MEDICAIDPol BRENNEMANDOB: [facility] icy Number: [id number] Hospital [id number] Repository Date:2018-06-05 06/05/2018 Tertiary NOT GIVENUNK [place] Insurance:SELF PAY [facility] Number: Effective Repository Date:2018-06-05 05/25/2018 DEBBY L Primary DEBBY Alvarenga [facility] BREEMANDOB: Insurance:MEDICARE BRENNEMANDOB: [facility] PART B [facility] [id number] Repository EDWARDS Number: [facility] [place] [id number], [place] [address]Blt: (330) Date:2018-05-25 [id number]: () [id number] Name:PCGS ()Tel: (000) Administrators LLCPO 000-0000 (WP) [address] [address]Cfmzngeav, [place] [address]SL: 05/25/2018 Secondary DEBBY L [facility] Insurance:MEDICAID [facility]: [facility] [id number] Repository Number: [place] [id number], [place] Date:2018-05-25 10785Zki: [phone] [id number] [phone] Name:HUANG MOORENEEMAGermán Richard ()Tel: (000) [phone], [place] 000-0000 (WP) [phone]: 05/11/2018 DEBBY L Primary DEBBY L [place] [id number] Insurance:MEDICARE [facility] [id number], [place] Number: Repository [address]Hlf: [phone]) [id number] [phone] () Date:2018-05-11 05/11/2018 Secondary DEBBY L [place] Insurance:MEDICAIDPol [facility] Number: [id number] Hospital [id number] Repository Date:2018-05-11 05/11/2018 Tertiary NOT GIVENUNK [place] Insurance:SELF PAY [facility] Number: Effective Repository Date:2018-05-11 04/24/2018 DEBBY L Primary DEBBY L [place] [id number] Insurance:MEDICARE [facility] A [facility] [id number], [place] Number: Repository [address]Xnu: (059) [id number] [phone] () Date:2018-04-24 04/24/2018 Secondary DEBBY L [place] Insurance:MEDICAIDPol BRENNEMANDOB: [facility] icy Number: [id number] Hospital [id number] Repository Date:2018-04-24 04/24/2018 Tertiary NOT GIVENUNK [place] Insurance:SELF PAY [facility] Number: Effective Repository Date:2018-04-24 04/23/2018 DEBBY L Primary DEBBY L [place] [id number] Insurance:MEDICARE BRENNEMANDOB: [facility] PART A [facility] [id number] [place] Number: Repository [address]Zxp: 330 [id number] [phone] (HP) Date:2018-04-23 04/23/2018 Secondary DEBBY L [place] Insurance:MEDICAIDPol BRENNEMANDOB: [facility] icy Number: [id number] Hospital [id number] Repository Date:2018-04-23 04/23/2018 Tertiary NOT GIVENUNK [place] Insurance:SELF PAY [facility] Number: Effective Repository Date:2018-04-23 04/14/2018 DEBBY L Primary DEBBY L [place] [id number] Insurance:MEDICARE BRENNEMANDOB: [facility] PART A [facility] [id number] [place] Number: Repository [address]Vlj: 330 [id number] [phone] (HP) Date:2018-04-14 04/14/2018 Secondary DEBBY L [place] Insurance:MEDICAIDPol BRENNEMANDOB: [facility] icy Number: [id number] Hospital [id number] Repository Date:2018-04-14 04/14/2018 Tertiary NOT GIVENUNK [place] Insurance:SELF PAY [facility] Number: Effective Repository Date:2018-04-14 04/13/2018 DEBBY L Primary DEBBY L [place] [id number] Insurance:MEDICARE BRENNEMANDOB: [facility] PART A [facility] [id number] [facility] Number: Repository [id number]: ([phone]) [id number] [phone] (HP) Date:2018-04-13 04/13/2018 Secondary DEBBY L [place] Insurance:MEDICAIDPol BRENNEMANDOB: [facility] icy Number: [id number] Hospital [id number] Repository Date:2018-04-13 04/13/2018 Tertiary NOT GIVENUNK [place] Insurance:SELF PAY [facility] Number: Effective Repository Date:2018-04-13 04/11/2018 DEBBY L Primary DEBBY L Norma [id number] Insurance:MEDICARE BRENNEMANDOB: [facility] PART A [facility] [id number] [facility] Number: Repository [address]Clx: 330 [id number] [phone] (HP) Date:2018-04-11 04/11/2018 Secondary DEBBY L [place] Insurance:MEDICAIDPol BRENNEMANDOB: [facility] icy Number: [id number] Hospital [id number] Repository Date:2018-04-11 04/11/2018 Tertiary NOT GIVENUNK [place] Insurance:SELF PAY [facility] Number: Effective Repository Date:2018-04-11 04/11/2018 DEBBY L Primary DEBBY L [place] [id number] Insurance:MEDICARE BRENNEMANDOB: [facility] PART A [facility] [id number] Area Community Hospital, [place] Number: Repository [address]Riz: 330 [id number] [phone] ([phone] Date:2018-04-11 04/11/2018 Secondary DEBBY L [place] Insurance:MEDICAIDPol BRENNEMANDOB: [facility] icy Number: [id number] Hospital [id number] Repository Date:2018-04-11 04/11/2018 Tertiary NOT GIVENUNK [place] Insurance:SELF PAY [facility] Number: Effective Repository Date:2018-04-11 04/11/2018 DEBBY L Primary DEBBY L [place] [id number] Insurance:MEDICARE BRENNEMANDOB: [facility] PART A [facility] [id number] Area Community Hospital, [place] Number: Repository [address]Gyh: (015) [id number] [phone] ([phone] Date:2018-04-11 04/11/2018 Secondary DEBBY L [place] Insurance:MEDICAIDPol BRENNEMANDOB: [facility] icy Number: [id number] Hospital [id number] Repository Date:2018-04-11 04/11/2018 Tertiary NOT GIVENUNK [place] Insurance:SELF PAY [facility] Number: Effective Repository Date:2018-04-11 04/09/2018 DEBBY L Primary DEBBY L [place] [id number] Insurance:MEDICARE BRENNEMANDOB: [facility] PART A [facility] [id number] Area Community Hospital, [place] Number: Repository [address]Dyn: 330 [id number] [phone] ([phone] Date:2018-04-09 04/09/2018 Secondary DEBBY L [place] Insurance:MEDICAIDPol BRENNEMANDOB: [facility] icy Number: [id number] Hospital [id number] Repository Date:2018-04-09 04/09/2018 Tertiary NOT GIVENUNK [place] Insurance:SELF PAY [facility] Number: Effective Repository Date:2018-04-09 03/23/2018 DEBBY L Primary DEBBY L [place] [id number] Insurance:MEDICARE BRENNEMANDOB: [facility] PART A [facility] [id number] Area Community Hospital, [place] Number: Repository [address]Ymm: 330 [id number] [phone] (HP) Date:2018-03-19 03/23/2018 Secondary DEBBY L [place] Insurance:MEDICAIDPol BRENNEMANDOB: [facility] icy Number: [id number] Hospital [id number] Repository Date:2018-03-19 03/23/2018 Tertiary NOT GIVENUNK [place] Insurance:SELF PAY [facility] Number: Effective Repository Date:2018-03-19 03/22/2018 DEBBY L Primary DEBBY L [place] [id number] Insurance:MEDICARE BRENNEMANDOB: [facility] [id number] Area Community [facility], [place] Number: Repository [address]Csh: 330 [id number] [phone] (HP) Date:2018-03-22 03/22/2018 Secondary DEBBY L [place] Insurance:MEDICAIDPol BRENNEMANDOB: [facility] icy Number: [id number] Hospital [id number] Repository Date:2018-03-22 03/22/2018 Tertiary NOT GIVENUNK [place] Insurance:SELF PAY [facility] Number: Effective Repository Date:2018-03-22 03/19/2018 DEBBY Alvarenga Primary DEBBY L [place] [id number] Insurance:MEDICARE BRENNEMANDOB: [facility] PART A [facility] [id number] Huntington Hospital [place] Number: Repository [address]Fvs: 330 [id number] [phone] (HP) Date:2018-03-19 03/19/2018 Secondary DEBBY L [place] Insurance:MEDICAIDPol BRENNEMANDOB: [facility] icy Number: [id number] Hospital [id number] Repository Date:2018-03-19 03/19/2018 Tertiary NOT GIVENUNK [place] Insurance:SELF PAY [facility] Number: Effective Repository Date:2018-03-19 03/14/2018 DEBBY L Primary DEBBY L [place] [id number] Insurance:MEDICARE BRENNEMANDOB: [facility] PART A [facility] [id number] Huntington Hospital [place] Number: Repository [address]Gxj: 330 [id number] [phone] (HP) Date:2018-03-14 03/14/2018 Secondary DEBBY L [place] Insurance:MEDICAIDPol BRENNEMANDOB: [facility] icy Number: [id number] Hospital [id number] Repository Date:2018-03-14 03/14/2018 Tertiary NOT GIVENUNK [place] Insurance:SELF PAY [facility] Number: Effective Repository Date:2018-03-14 03/06/2018 DEBBY L Primary DEBBY L [place] [id number] Insurance:MEDICARE BRENNEMANDOB: [facility] [id number] Number: Repository [address]Xzq: 330 [id number] [phone] (HP) Date:2018-03-06 03/06/2018 Secondary DEBBY L [place] Insurance:MEDICAIDPol BRENNEMANDOB: [facility] icy Number: [id number] Hospital [id number] Repository Date:2018-03-06 03/06/2018 Tertiary NOT GIVENUNK [place] Insurance:SELF PAY [facility] Number: Effective Repository Date:2018-03-06 03/03/2018 DEBBY Alvarenga Primary DEBBY Alvarenga [place] [id number] Insurance:MEDICARE BRENNEMANDOB: [facility] PART A [facility] [id number], [place] Number: Repository [address]Gsl: 330 [id number] [phone] (HP) Date:2018-03-03 03/03/2018 Secondary DEBBY L [place] Insurance:MEDICAIDPol BRENNEMANDOB: [facility] Number: [id number] Hospital [id number] Repository Date:2018-03-03 03/03/2018 Tertiary NOT GIVENUNK [place] Insurance:SELF PAY [facility] Number: Effective Repository Date:2018-03-03 02/26/2018 DEBBY L Primary DEBBY L [facility] BRENNEMANDOB: Insurance:MEDICARE BRENNEMANDOB: [facility] PART [facility] Number: [id number] Repository [place] [id number] [place], [place] Date:2018-02-26 [place], [place] [address]Zap: [phone] [phone]: () Name:[facility] [id number] Administrators LLCPO ()Tel: (000) [address] [address]Xwknwmyzs, [phone] (WP) [place] [address]ZF: 02/26/2018 Secondary DEBBY [facility] Insurance:MEDICAID OF BRENNEMANDOB: [facility] Number: [id number] Repository [id number] [place] Date:2018-02-26 - [place], [place] [id number] [phone]: (330) Name:HUANG WHITMORE [id number], [place] ()Tel: (000) [phone]: () [phone] 02/25/2018 DEBBY L Primary DEBBY [place] [id number] Insurance:MEDICARE BRENNEMANDOB: [facility] PART A [facility] [id number], [place] Number: Repository [address]Dqu: 330 [id number] [phone] (HP) Date:2018-02-25 02/25/2018 Secondary DEBBY L [place] Insurance:MEDICAIDPol BRENNEMANDOB: Community icy Number: [id number] Hospital [id number] Repository Date:2018-02-25 02/25/2018 Tertiary NOT GIVENUNK [place] Insurance:SELF PAY [facility] Number: Effective Repository Date:2018-02-25 02/23/2018 DEBBY L Primary DEBBY L [place] [id number] Insurance:MEDICARE BRENNEMANDOB: [facility] A [facility] [id number] Area Community Hospital, [place] Number: Repository [address]Fro: 330 [id number] [phone] (HP) Date:2016-03-29 02/23/2018 Secondary DEBBY L [place] Insurance:MEDICAIDPol BRENNEMANDOB: [facility] icy Number: [id number] Hospital [id number] Repository Date:2018-01-27 02/23/2018 Tertiary NOT GIVENUNK [place] Insurance:SELF PAY [facility] Number: Effective Repository Date:2018-01-31 02/16/2018 DEBBY L Primary DEBBY L [place] [id number] Insurance:MEDICARE BRENNEMANDOB: [facility] PART A [facility] [id number] Huntington Hospital [place] Number: Repository [address]Jih: 330 [id number] [phone] () Date:2018-02-16 02/16/2018 Secondary DEBBY L [place] Insurance:MEDICAIDPol BRENNEMANDOB: [facility] icy Number: [id number] Hospital [id number] Repository Date:2018-02-16 02/16/2018 Tertiary NOT GIVENUNK [place] Insurance:SELF PAY [facility] Number: Effective Repository Date:2018-02-16 02/14/2018 DEBBY L Primary DEBBY L [place] [id number] Insurance:MEDICARE BRENNEMANDOB: [facility] A [facility] [id number] Area Community Hospital, [place] Number: Repository [address]Bpg: 330 [id number] [phone] (HP) Date:2018-02-14 02/14/2018 Secondary DEBBY L [place] Insurance:MEDICAIDPol BRENNEMANDOB: [facility] icy Number: [id number] Hospital [id number] Repository Date:2018-02-14 02/14/2018 Tertiary NOT GIVENUNK [place] Insurance:SELF PAY [facility] Number: Effective Repository Date:2018-02-14 01/30/2018 DEBBY L Primary DEBBY L [place] [id number] Insurance:MEDICARE BRENNEMANDOB: [facility] [id number] Area Community Hospital, [place] Number: Repository [address]Cst: 330 [id number] [phone] (HP) Date:2018-01-23 01/30/2018 Secondary DEBBY L [place] Insurance:MEDICAIDPol BRENNEMANDOB: [facility] icy Number: [id number] Hospital [id number] Repository Date:2018-01-23 01/30/2018 Tertiary NOT GIVENUNK [place] Insurance:SELF PAY [facility] Number: Effective Repository Date:2018-01-30 01/30/2018 DEBBY L Primary DEBBY L [place] [id number] Insurance:MEDICARE BRENNEMANDOB: [facility] A [facility] [id number] Area Community Hospital, [place] Number: Repository [address]Ehc: 330 [id number] [phone] (HP) Date:2018-01-30 01/30/2018 Secondary DEBBY L [place] Insurance:MEDICAIDPol BRENNEMANDOB: [facility] icy Number: [id number] Hospital [id number] Repository Date:2018-01-30 01/30/2018 Tertiary NOT GIVENUNK [place] Insurance:SELF PAY [facility] Number: Effective Repository Date:2018-01-30 01/23/2018 DEBBY Alvarenga Primary DEBBY L [place] [id number] Insurance:MEDICARE BRENNEMANDOB: [facility] [id number] Area Community Hospital, [place] Number: Repository [address]Sah: 330 [id number] [phone] (HP) Date:2018-01-23 01/23/2018 Secondary DEBBY L [place] Insurance:MEDICAIDPol BRENNEMANDOB: Community icy Number: [id number] Hospital [id number] Repository Date:2018-01-23 01/23/2018 Tertiary NOT GIVENUNK [place] Insurance:SELF PAY [facility] Number: Effective Repository Date:2018-01-23 01/23/2018 DEBBY L Primary DEBBY L [place] [id number] Insurance:MEDICARE BRENNEMANDOB: [facility] PART A [facility] [id number] Area Community Hospital, [place] Number: Repository [address]Zyz: 330 [id number] [phone] (HP) Date:2018-01-18 01/23/2018 Secondary DEBBY L [place] Insurance:MEDICAIDPol BRENNEMANDOB: Community icy Number: [id number] Hospital [id number] Repository Date:2018-01-18 01/23/2018 Tertiary NOT GIVENUNK [place] Insurance:SELF PAY [facility] Number: Effective Repository Date:2018-01-23 01/21/2018 DEBBY L Primary DEBBY L [place] [id number] Insurance:MEDICARE BRENNEMANDOB: [facility] PART A [facility] [id number] Area Community Hospital, [place] Number: Repository [address]Alb: 330 [id number] [phone] (HP) Date:2018-01-21 01/21/2018 Secondary DEBBY L [place] Insurance:MEDICAIDPol BRENNEMANDOB: [facility] icy Number: [id number] Hospital [id number] Repository Date:2018-01-21 01/21/2018 Tertiary NOT GIVENUNK [place] Insurance:SELF PAY [facility] Number: Effective Repository Date:2018-01-21 01/18/2018 DEBBY L Primary DEBBY L [place] [id number] Insurance:MEDICARE [facility]ENNPROMEDICA B[facility]ARK HOSPITALDOB: [facility] A [facility] [id number], [place] Number: Repository [address]Lip: [phone] [id number] [phone] (HP) Date:2018-01-04 01/18/2018 Secondary DEBBY L [place] [facility]IDCH[facility] [place]: [facility] Number: [id number] Hospital [id number] Repository Date:2018-01-04 01/18/2018 [facility] [place] Insurance:SELF PAY [facility] Number: Effective Repository Date:2018-01-04 01/02/2018 DEBBY L Primary DEBBY L [facility] BRENNEMANDOB: Insurance:MEDICARE A [facility]WIL[facility]OSPITALB: Health System AND BPolicy Number: [id number] [facility] [id number], [place] Date: [address]Lqx: () 01/02/2018 Secondary DEBBY L [facility] Insurance:[facility]ID[facility] [id number] Repository Number: [id number] Date: 12/26/2017 DEBBY L Primary DEBBY L [facility] BRENNEMANDOB: Insurance:MEDICARE A [facility]OENIXDOB: Health System AND BPolicy Number: [id number] [facility] [id number], [place] Date: [address]Lfg: () 12/26/2017 Secondary DEBBY L [facility] Insurance:[facility]ENTER[facility]: [facility] MEDICAIDEn[facility] [id number] Repository Number: [id number] Date: 12/24/2017 DEBBY L Primary DEBBY L [place] [id number] Insurance:MEDICARE BRENNPROMEDICA BAY PARK HOSPITALDOB: [facility] PART A [facility] [id number], [place] Number: Repository [address]Yvg: (372) [id number] [phone] (HP) Date:2017-12-24 12/24/2017 Secondary DEBBY L [place] Insurance:MEDICAIDPol BRENNEMANDOB: [facility] icy Number: [id number] Hospital [id number] Repository Date:2017-12-24 12/24/2017 Tertiary NOT GIVENUNK [place] Insurance:SELF PAY [facility] Number: Effective Repository Date:2017-12-24 12/20/2017 DEBBY L Primary DEBBY L [place] [id number] Insurance:MEDICARE BRENNEMANDOB: [facility] PART A [facility] [id number] Area Community Hospital, [place] Number: Repository [address]Ymm: 330 [id number] [phone] (HP) Date:2017-12-20 12/20/2017 Secondary DEBBY L [place] Insurance:MEDICAIDPol BRENNEMANDOB: [facility] icy Number: [id number] Hospital [id number] Repository Date:2017-12-20 12/20/2017 Tertiary NOT GIVENUNK [place] Insurance:SELF PAY [facility] Number: Effective Repository Date:2017-12-20 12/17/2017 DEBBY L Primary DEBBY L [place] [id number] Insurance:MEDICARE BRENNEMANDOB: [facility] PART A [facility] [id number] Area Community Hospital, [place] Number: Repository [address]Prt: 330 [id number] [phone] (HP) Date:2017-12-17 12/17/2017 Secondary DEBBY L [place] Insurance:MEDICAIDPol BRENNEMANDOB: [facility] icy Number: [id number] Hospital [id number] Repository Date:2017-12-17 12/17/2017 Tertiary NOT GIVENUNK [place] Insurance:SELF PAY [facility] Number: Effective Repository Date:2017-12-17 12/16/2017 DEBBY L Primary DEBBY L [place] [id number] Insurance:MEDICARE BRENNEMANDOB: [facility] PART A [facility] [id number] Area Community Hospital, [place] Number: Repository [address]Ojt: 330 [id number] [phone] (HP) Date:2017-12-16 12/16/2017 Secondary DEBBY L [place] [facility] BRENNPROMEDICA BAY PARK HOSPITALDOB: [facility] icy Number: [id number] Hospital [id number] Repository Date:2017-12-16 12/16/2017 Tertiary NOT GIVENUNK [place] Insurance:SELF PAY [facility] Number: Effective Repository Date:2017-12-16 12/11/2017 DEBBY L Primary DEBBY L [facility] BRENNEMANDOB: Insurance:MEDICARE A [facility]OSPITALB: Health System AND BPolicy Number: [id number] Repository [place] [id number] [place], [place] Date: [address]Icu: () 12/11/2017 Secondary DEBBY L [facility] Insurance:[facility]ENTERB: [facility] MEDICAIDEn[facility] [id number] Repository Number: [id number] Date: 12/01/2017 DEBBY L Primary DEBBY L [facility] BRENNPROMEDICA BAY PARK HOSPITALDOB: Insurance:MEDICARE A [facility]ITALB: [facility] AND BPolicy Number: [id number] [facility] [id number] [place], [place] Date: [address]Rbg: () 12/01/2017 Secondary DEBBY L [facility] Insurance:[facility]ENTERB: Health System MEDICAIDPolicy [id number] Repository Number: [id number] Date: 11/07/2017 DEBBY L Primary DEBBY L [place] [id number] Insurance:MEDICARE [facility]OSPITALB: [facility] PART A [facility] [id number], [place] Number: Repository [address]Npi: [id number] [phone] Date:2017-11-07 () 11/07/2017 Secondary DEBBY L [place] Insurance:MEDICAIDPol BRENNPROMEDICA BAY PARK HOSPITALDOB: [facility] icy Number: [id number] [facility] [id number] Repository Date:2017-11-07 11/07/2017 Tertiary NOT GIVENUNK [place] Insurance:SELF PAY [facility] Number: Effective Repository Date:2017-11-07 11/07/2017 DEBBY Primary DEBBY L [facility] BRENNEMANDOB: Insurance:MEDICAREMissouri Southern HealthcareB: [facility] icy Number: [id number] Repository [place] [id number] [facility], Date: [place], [place] [address]Rqs: [place] [address] () 11/07/2017 Secondary DEBBY [facility] Insurance:[facility]ENTERB: Hospital MEDICAIDPolicy [id number] Repository Number: [place] [id number] [address] 10/17/2017 DEBBY L Primary DEBBY L [facility] BRENNEMANDOB: Insurance:MEDICARE A [facility]B: [facility] AND olicy Number: [id number] Repository [place] [id number] [place], [place] Date: [address]Pzf: () 10/17/2017 Secondary DEBBY L [facility] Insurance:[facility]B: Health System MEDICAIDPolicy [id number] Repository Number: [id number] Date: 10/14/2017 Debby L Primary DEBBY L [place] [id number] Insurance:MEDICARE BRENNEMANDOB: [facility] [id number] [place] Number: Repository [address]Zib: [id number] [phone] Date:2017-10-14 () 10/14/2017 Secondary DEBBY L [place] Insurance:MEDICAIDPol BRENNEMANDOB: [facility] icy Number: [id number] [facility] [id number] Repository Date:2017-10-14 10/14/2017 Tertiary NOT GIVENUNK [place] Insurance:SELF PAY [facility] Number: Effective Repository Date:2017-10-14 09/15/2017 Debby L Primary DEBBY L [place] [id number] Insurance:MEDICARE BRENNEMANDOB: [facility] PART A [facility] [id number] [facility] [place] Number: Repository [address]Qxf: [id number] [phone] Date:2017-09-15 () 09/15/2017 Secondary DEBBY L [place] Insurance:MEDICAIDPol BRENNEMANDOB: [facility] icy Number: [id number] Hospital [id number] Repository Date:2017-09-15 09/15/2017 Tertiary NOT GIVENUNK [place] Insurance:SELF PAY [facility] Number: Effective Repository Date:2017-09-15 08/22/2017 Debby L Primary DEBBY L [place] [id number] Insurance:MEDICARE BRENNEMANDOB: [facility] A [facility] [id number] Area Community [facility], [place] Number: Repository [address]Low: 330 [id number] [phone] () Date:2017-08-22 08/22/2017 Secondary DEBBY L [place] Insurance:MEDICAIDPol BRENNEMANDOB: [facility] icy Number: [id number] Hospital [id number] Repository Date:2017-08-22 08/22/2017 Tertiary NOT GIVENUNK [place] Insurance:SELF PAY [facility] Number: Effective Repository Date:2017-08-22 07/25/2017 Debby L Primary DEBBY L [place] [id number] Insurance:MEDICARE BRENNEMANDOB: [facility] A [facility] [id number] Area Community [facility] Number: Repository [address]Wtx: 330 [id number] [phone] () Date:2017-07-25 07/25/2017 Secondary DEBBY L [place] Insurance:MEDICAIDPol BRENNEMANDOB: [facility] icy Number: [id number] Hospital [id number] Repository Date:2017-07-25 07/25/2017 Tertiary NOT GIVENUNK [place] Insurance:SELF PAY [facility] Number: Effective Repository Date:2017-07-25 07/22/2017 Debby L Primary DEBBY L [place] [id number] Insurance:MEDICARE BRENNEMANDOB: [facility] PART A [facility] [id number] Huntington Hospital [place] Number: Repository [address]Tqx: 330 [id number] [phone] () Date:2017-07-22 07/22/2017 Secondary DEBBY L [place] Insurance:MEDICAIDPol BRENNEMANDOB: [facility] icy Number: [id number] Hospital [id number] Repository Date:2017-07-22 07/22/2017 Tertiary NOT GIVENUNK [place] Insurance:SELF PAY [facility] Number: Effective Repository Date:2017-07-22 07/18/2017 Debby L Primary DEBBY L [place] [id number] Insurance:MEDICARE BRENNEMANDOB: [facility] A [facility] [id number] Huntington Hospital [place] Number: Repository [address]Hbm: 330 [id number] [phone] () Date:2017-07-18 07/18/2017 Secondary DEBBY L [place] Insurance:MEDICAIDPol BRENNEMANDOB: [facility] icy Number: [id number] Hospital [id number] Repository Date:2017-07-18 07/18/2017 Tertiary NOT GIVENUNK [place] Insurance:SELF PAY [facility] Number: Effective Repository Date:2017-07-18 07/18/2017 Debby L Primary DEBBY L [place] [id number] Insurance:MEDICARE BRENNEMANDOB: [facility] A [facility] [id number] Valley [facility] Number: Repository [address]Hqp: 330 [id number] [phone] (HP) Date:2017-06-27 07/18/2017 Secondary DEBBY L [place] Insurance:MEDICAIDPol BRENNEMANDOB: [facility] icy Number: [id number] Hospital [id number] Repository Date:2017-06-27 07/18/2017 Tertiary NOT GIVENUNK [place] Insurance:SELF PAY [facility] Number: Effective Repository Date:2017-06-27 07/18/2017 Debby L Primary DEBBY L [place] [id number] Insurance:MEDICARE BRENNEMANDOB: [facility] A [facility] [id number], [place] Number: Repository [address]Fen: 330 [id number] [phone] (HP) Date:2017-07-18 07/18/2017 Secondary DEBBY L [place] Insurance:MEDICAIDPol BRENNEMANDOB: [facility] icy Number: [id number] Hospital [id number] Repository Date:2017-07-18 07/18/2017 Tertiary NOT GIVENUNK [place] Insurance:SELF PAY [facility] Number: Effective Repository Date:2017-07-18 06/28/2017 Debby L Primary DEBBY L [place] [id number] Insurance:MEDICARE BRENNEMANDOB: [facility] PART A [facility] [id number] [place] Number[place] Repository [address]Ycj: 330 [id number] [phone] (HP) Date:2017-06-27 06/28/2017 Secondary DEBBY L [place] Insurance:MEDICAIDPol BRENNEMANDOB: [facility] ic Number: [id number] Hospital [id number] Repository Date:2017-06-27 06/28/2017 Tertiary NOT GIVENUNK [place] Insurance:SELF PAY [facility] Number: Effective Repository Date:2017-06-27 06/28/2017 Debby L Primary DEBBY L [place] [id number] Insurance:MEDICARE BRENNEMANDOB: [facility] [id number] Number: Repository [id number]: [id number] [phone] (HP) Date:2017-06-27 06/28/2017 Secondary DEBBY L Norma Insurance:MEDICAIDPol [place]ENN[place]ANDOB: [facility] icy Number: [id number] Hospital [id number] Repository Date:2017-06-27 06/28/2017 Tertiary NOT GIVENUNK Norma Insurance:SELF PAY [facility] Number: Effective Repository Date:2017-06-28 06/28/2017 Debby L Primary DEBBY L Norma [id number] Insurance:MEDICARE BRENNEMANDOB: [facility] B[id number] Number: Repository [id number]: [phone] [id number] [phone] () Date:2017-06-27 06/28/2017 Secondary DEBBY Green Insurance:MEDICAIDPol [facility] [place] Number: [id number] Hospital [id number] Repository Date:2017-06-27 06/28/2017 Tertiary NOT GIVENUNK [place] Insurance:SELF PAY [facility] Number: Effective Repository Date:2017-06-28
== END 2018-05-11 12:21 | disposition home or self-care (01) ==
PROVIDERS: Emergency Provider Emergency Medicine; Family Provider Family Medicine; PCP Family Medicine
DX: R30.0 Dysuria (principal); R51 Headache; E11.9 Type 2 diabetes mellitus without complications; R19.7 Diarrhea, unspecified
CPT/HCPCS: 81001; 81025; 96372; 99282

== ENCOUNTER 2018-06-05 13:33 | Emergency (ER) | payer MEDICARE, MEDICAID, SELFPAY ==
[2018-06-05 13:34] VITALS: BP 143/95; PULSE 89; RESP 19; TEMP 36.8; O2SAT 99; BMI 42.6
--- NOTE | 2018-06-05 13:59 | RAD_ITS ---
STUDY: X-RAY - LEFT KNEE REASON FOR EXAM: Female, 37 years old. Pain following a fall. TECHNIQUE: 4 view(s) of the knee. COMPARISON: Comparison is made with prior study dated March 22, 2018. FINDINGS: Normal visualized distal femur. Normal visualized proximal tibia and fibula. Normal proximal tibiofibular articulation. Normal medial femorotibial compartment. Normal lateral femorotibial compartment. Normal patellofemoral articulation. The soft tissue structures are unremarkable. RAD/Knee 4 or More Views IMPRESSION: Normal x-ray examination of the knee. Electronically Signed: Stephan Sood MD at 14:46 EST Tel [phone], Service support ,
--- NOTE | 2018-06-05 16:12 | ED.DCSUM_ITS ---
- ER Visit Summary Date of Service: 06/05/18 Chief Complaint: Left knee pain History of Present Illness: The patient is a 37 F she was getting out of a transportation vehicle stepped the wrong way and twisted her left knee. She has pain in the knee nowhere else. No other injury. Physical Examination: Otherwise normal exam, she is got tenderness over the anterior part of her knee, infrapatellar region. She has normal extensor mechanism. No laxity on anterior posterior medial lateral stressors. Emergency Department Course and Treatment: X-rays unremarkable patient will be discharged with reassurance she is able to ambulate. Discharge stable condition Impression: [Left knee strain] This note was generated with [employer] dictation software. It may contain incorrect words, spelling, and punctuation that were not noted in review of the chart prior to signing ED Disposition - Plan for ED Patient: Disposition: Home or Assisted Living Chief Complaint: Lower Extremity Injury Instructions: ED Sprain Knee Prescriptions: Naproxen [Naprosyn] 500 mg PO BID PRN #20 tab Referrals: Will Shukla MD [Primary Care Provider] -
--- NOTE | 2018-06-14 17:48 | CM.ED ---
Social Work Note EDCP was approved on 06/07/18. Mailed out via certified mail (#[phone]) this date. CHAU Garnica, CLARIBEL
== END 2018-06-05 16:20 | disposition home or self-care (01) ==
PROVIDERS: Emergency Provider Emergency Medicine; Family Provider Family Medicine; PCP Family Medicine
DX: S86.912A Strain of unspecified muscle(s) and tendon(s) at lower leg level, left leg, initial encounter (principal); X50.1XXA Overexertion from prolonged static or awkward postures, initial encounter; Y93.9 Activity, unspecified; Y92.818 Other transport vehicle as the place of occurrence of the external cause; Y99.9 Unspecified external cause status
CPT/HCPCS: 73564; 99282

== ENCOUNTER 2018-06-15 17:00 | Emergency (ER) | payer MEDICARE, MEDICAID, SELFPAY ==
[2018-06-15 17:01] VITALS: BP 139/72; PULSE 86; RESP 22; TEMP 36.9; O2SAT 98; BMI 44.5
[2018-06-15 17:42] LABS: Hematocrit 36.9 % (37-47); Hemoglobin 11.8 g/dl (12.0-15.0); Mean Corpuscular Volume 90.7 fL (81-99); Mean Platelet Vol. 10.8 fl (6.2-12.0); Platelet Count 180 K/mm3 (150-450); RBC Distribution Width CV 13.5 % (11.6-14.6); RBC Distribution Width SD 44.3 fl (35.1-43.9); Red Blood Count 4.07 M/mm3 (4.2-5.4); Scan Indicated on CBC? Y/N NO; White Blood Count 9.6 K/mm3 (4.4-11.0)
--- NOTE | 2018-06-15 18:43 | ED.VISSUMM ---
- ER Visit Summary Date of Service: 06/15/18 Chief Complaint: Rectal bleeding History of Present Illness: The patient is a 37 F history of drr-ulinmeo-[id number] diabetes, spina bifida and neurogenic bladder chronic history of constipation. States the last week she has had normal bowel movements. However today she had rectal bleeding prior to arrival. States she is never had rectal bleeding before. Denies straining at stool. Denies being on any blood thinners. Denies being lightheaded or dizzy. Physical Examination: No acute distress. HEENT exam unremarkable. Lungs clear to auscultation bilaterally. Heart regular rate and rhythm no murmur. Abdomen is normal bowel sounds no peritoneal signs. Remedies moves all 4. Neurologically awake and alert. Rectal exam done with female nurse present in the room there is no gross blood. Brown soft stool. Nontender. No masses. No obvious external hemorrhoids and no palpable internal hemorrhoids or masses Test Results: CBC shows hemoglobin 11.8 which the patient has had before in the past. Emergency Department Course and Treatment: Patient's been observed in the ER for nearly 2 hours. She has had no further symptoms. She is doing well on repeat exam at 18:36 comfortable being discharged home with outpatient follow-up. Treatment Plan: Warm soaks and outpatient follow-up for colonoscopy as needed. Return if worse. Disposition: Discharge Impression: Acute rectal bleeding of uncertain etiology This note was generated with [employer] dictation software. It may contain incorrect words, spelling, and punctuation that were not noted in review of the chart prior to signing ED Disposition - Plan for ED Patient: Chief Complaint: GI Bleed Referrals: Will Shukla MD [Primary Care Provider] -
--- NOTE | 2018-06-15 18:46 | ED.DCSUM_ITS ---
- ER Visit Summary Date of Service: 06/15/18 Chief Complaint: Rectal bleeding History of Present Illness: The patient is a 37 F history of vhz-icwftxd-hosvkexss diabetes, spina bifida and neurogenic bladder chronic history of constipation. States the last week she has had normal bowel movements. However today she had rectal bleeding prior to arrival. States she is never had rectal bleeding before. Denies straining at stool. Denies being on any blood thinners. Denies being lightheaded or dizzy. Physical Examination: No acute distress. HEENT exam unremarkable. Lungs clear to auscultation bilaterally. Heart regular rate and rhythm no murmur. Abdomen is normal bowel sounds no peritoneal signs. Remedies moves all 4. Neurologically awake and alert. Rectal exam done with female nurse present in the room there is no gross blood. Brown soft stool. Nontender. No masses. No obvious external hemorrhoids and no palpable internal hemorrhoids or masses Test Results: CBC shows hemoglobin 11.8 which the patient has had before in the past. Emergency Department Course and Treatment: Patient's been observed in the ER for nearly 2 hours. She has had no further symptoms. She is doing well on repeat exam at 18:36 comfortable being discharged home with outpatient follow-up. Treatment Plan: Warm soaks and outpatient follow-up for colonoscopy as needed. Return if worse. Disposition: Discharge Impression: Acute rectal bleeding of uncertain etiology This note was generated with [employer] dictation software. It may contain incorrect words, spelling, and punctuation that were not noted in review of the chart prior to signing ED Disposition - Plan for ED Patient: Chief Complaint: GI Bleed Referrals: Will Shukla MD [Primary Care Provider] -
--- NOTE | 2018-06-15 18:46 | ED.DEP ---
ED Disposition - Plan for ED Patient: Disposition: Home or Assisted Living Chief Complaint: GI Bleed Instructions: ED Hematochezia Stable Referrals: Will Shukla MD [Primary Care Provider] - 1 Week Additional Instructions: Follow-up with your primary care physician. Return if a lot heavier bleeding.
[2018-06-15 18:51] VITALS: BP 130/62; PULSE 74; RESP 16; O2SAT 98
--- OUTSIDE RECORDS SUMMARY | 2018-08-20 08:10 | XMS RPT_ITS ---
:1980 Author Organization OHIP Support Name Relationship Address Phone MEHDI BAILON Unavailable [address] + [place] [address] D Unavailable Unavailable Unavailable LEONEL WOLFELLE Unavailable [address] + [place] [address] UVALDO, MEHDI Unavailable [address] + [place] [address] D Unavailable Unavailable Unavailable LINNERLEONELBENJIE Unavailable [address] + [place] [address] UVALDO MEHDI Unavailable Unavailable + UVALDO MEHDI Unavailable Unavailable + UVALDO MEHDI Unavailable [address] + [place] [address] D Unavailable Unavailable Unavailable GRASER, BENJIE Unavailable [address] + [place] [address] UVALDO, MEHDI Unavailable [address] + [place] [address] D Unavailable Unavailable Unavailable LINNER BENJIE Unavailable [address] + [place] [address] UVALDO, MEHDI Unavailable [address] + [place] [address] D Unavailable Unavailable Unavailable GRASER BENJIE Unavailable [address] + [place] [address] UVALDO MEHDI Unavailable [address] + [place] [address] D Unavailable Unavailable Unavailable GRASERLEONELBENJIE Unavailable [address] + [place] [address] UVALDO MEHDI Unavailable [address] + [place] [address] D Unavailable Unavailable Unavailable LUCIANO BENJIE Unavailable [address] + [place] [address] UVALDO, MEHDI Unavailable [address] + [place] [address] D Unavailable Unavailable Unavailable LUCIANO BENJIE Unavailable [address] + [place] [address] UVALDO, MEHDI Unavailable [address] + [place] [address] D Unavailable Unavailable Unavailable LUCIANO BENJIE Unavailable [address] + [place] [address] UVALDO, MEHDI Unavailable [address] + [place] [address] D Unavailable Unavailable Unavailable BENJIE WOLF Unavailable [address] + [place] [address] UVALDO, MEHDI Unavailable [address] + [place] [address] D Unavailable Unavailable Unavailable BENJIE WOLF Unavailable [address] + [place] [address] UVALDO, MEHDI Unavailable [address] + [place] [address] D Unavailable Unavailable Unavailable BENJIE WOLF Unavailable [address] + [place] [address] UVALDO, MEHDI Unavailable [address] + [place] [address] D Unavailable Unavailable Unavailable BENJIE WOLF Unavailable [address] + [place] [address] UVALDO, MEHDI Unavailable [address] + [place] [address] D Unavailable Unavailable Unavailable BENJIE WOLF Unavailable [address] + [place] [address] UVALDO, MEHDI Unavailable [address] + [place] [address] D Unavailable Unavailable Unavailable BENJIE WOLF Unavailable [address] + [place] [address] UVALDO, MEHDI Unavailable [address] + [place] [address] D Unavailable Unavailable Unavailable GRASERBENJIE Unavailable [address] + [place] [address] UVALDO, MEHDI Unavailable [address] + [place] [address] D Unavailable Unavailable Unavailable GRASERLEONELBENJIE Unavailable [address] + [place] [address] UVALDO, MEHDI Unavailable Unavailable + UVALDO, MEHDI Unavailable Unavailable + UVALDO, MEHDI Unavailable [address] + [place] [address] D Unavailable Unavailable Unavailable GRASERBENJIE Unavailable [address] + [place] [address] UVALDO, MEHDI Unavailable [address] + [place] [address] D Unavailable Unavailable Unavailable GRASERBENJIE Unavailable [address] + [place] [address] UVALDO, MEHDI Unavailable [address] + [place] [address] D Unavailable Unavailable Unavailable GRASERLEONELBENJIE Unavailable [address] + [place] [address] UVALDO, MEHDI Unavailable [address] + [place] [address] D Unavailable Unavailable Unavailable UVALDO, MEHDI Unavailable [address] + [place] [address] D Unavailable Unavailable Unavailable UVALDO, MEHDI Unavailable [address] + [place] [address] D Unavailable Unavailable Unavailable UVALDO, MEHDI Unavailable [address] + [place] [address] D Unavailable Unavailable Unavailable UVALDO, MEHDI Unavailable [address] + [place] [address] D Unavailable Unavailable Unavailable UVALDO, MEHDI Unavailable [address] + [place] [address] D Unavailable Unavailable Unavailable UVALDO, MEHDI Unavailable [address] + [place] [address] D Unavailable Unavailable Unavailable D Unavailable Unavailable Unavailable UVALDO, MEHDI Unavailable [address] + [place] [address] D Unavailable Unavailable Unavailable GODOY, ELIZABETH Unavailable [address] + [place] [address] UVALDO, MEHDI Unavailable [address] + [place] [address] D Unavailable Unavailable Unavailable GODOY, ELIZABETH Unavailable [address] + [place] [address] UVALDO, MEHDI Unavailable [address] + [place] [address] D Unavailable Unavailable Unavailable GODOY, ELIZABETH Unavailable [address] + [place] [address] UVALDO, MEHDI Unavailable [address] + [place] [address] D Unavailable Unavailable Unavailable GODOY, ELIZABETH Unavailable [address] + [place] [address] UVALDO, MEHDI Unavailable [address] + [place] [address] D Unavailable Unavailable Unavailable GODOY, ELIZABETH Unavailable [address] + [place] [address] UVALDO, MEHDI Unavailable [address] + [place] [address] UVALDO, MEHDI Unavailable [address] + [place] [address] D Unavailable Unavailable Unavailable GODOY, ELIZABETH Unavailable [address] + [place] [address] UVALDO, MEHDI Unavailable [address] + [place] [address] D Unavailable Unavailable Unavailable GODOY, ELIZABETH Unavailable [address] + [place] [address] UVALDO, MEHDI Unavailable [address] + [place] [address] D Unavailable Unavailable Unavailable GODOY, ELIZABETH Unavailable [address] + [place] [address] UVALDO, MEHDI Unavailable [address] + [place] [address] D Unavailable Unavailable Unavailable GODOY, ELIZABETH Unavailable [address] + [place] [address] UVALDO, MEHDI Unavailable [address] + [place] [address] D Unavailable Unavailable Unavailable WALT, ELIZABETH Unavailable [address] + [place] [address] UVALDO, MEHDI Unavailable [address] + [place] [address] D Unavailable Unavailable Unavailable WALT ELIZABETH Unavailable [address] + [place] [address] UVALDO, MEHDI Unavailable [address] + [place] [address] D Unavailable Unavailable Unavailable WALT ELIZABETH Unavailable [address] + [place] [address] UVALDO, MEHDI Unavailable [address] + [place] [address] D Unavailable Unavailable Unavailable WALT ELIZABETH Unavailable [address] + [place] [address] UVALDO, MEHDI Unavailable [address] + [place] [address] D Unavailable Unavailable Unavailable GODOY, ELIZABETH Unavailable [address] + [place] [address] UVALDO, MEHDI Unavailable [address] + [place] [address] D Unavailable Unavailable Unavailable GODOY, ELIZABETH Unavailable [address] + [place] [address] UVALDO, MEHDI Unavailable [address] + [place] [address] D Unavailable Unavailable Unavailable ELIZABETH GODOY Unavailable [address] [phone] [place] [address] Care Team Providers Name Role Phone Mirela, Will Primary Care Unavailable Terrence Ramon Attending Unavailable Mirela, Will Primary Care Unavailable Jayson Yost Attending Unavailable Mirela, Will Primary Care Unavailable Will Barcenas Attending Unavailable Mirela, Will Attending Unavailable Mirela, Will Primary Care Unavailable Mirela, Will Attending Unavailable Mirela, Will Referring Unavailable Mirela, Will Primary Care Unavailable Mirela, Will Primary Care Unavailable Celine Caputo Attending Unavailable Mirela, Will Primary Care Unavailable Deal, Dre Attending Unavailable Nemesio Barriga Attending Unavailable Mirela, Will Referring Unavailable Mirela, Will Primary Care Unavailable Bobby Lee Attending Unavailable Rojas Oates Attending Unavailable Mirela, Will Referring Unavailable Mirela, Will Attending Unavailable Jayson Alvarez Referring Unavailable Mirela, Will Primary Care Unavailable Nemesio Sanderson Attending Unavailable Mirela, Will Primary Care Unavailable Arnold Caban Attending Unavailable Mee Arnold Referring Unavailable Mirela, Wlil Primary Care Unavailable Will Barcenas Attending Unavailable Mirela, Will Primary Care Unavailable Celine Caputo Attending Unavailable Mirela, Will Primary Care Unavailable Taya Wong Attending Unavailable Mina Desai Admitting Unavailable Mirela, Will Primary Care Unavailable Celine Boateng Attending Unavailable Mirela, Will Primary Care Unavailable Deal, Dre Attending Unavailable Dominic Dealo Referring Unavailable Mirela, Will Primary Care Unavailable [...] Unavailable Mirela, Will Primary Care Unavailable Paintsil, Loma Admitting Unavailable Reymundo Encarnacion Attending Unavailable Herbert Reza Consulting Unavailable Paintsil, Loma Admitting Unavailable Mirela, Will Primary Care Unavailable Paintsil, Loma Consulting Unavailable Paintsil, Loma Attending Unavailable Paintsil, Loma Admitting Unavailable Reymundo Encarnacion Attending Unavailable Mirela, Will Primary Care Unavailable Herbert Reza Consulting Unavailable Reymundo Encarnacion Consulting Unavailable Mirela, Will Primary Care Unavailable Nemesio Pro Attending Unavailable Mirela, Will Primary Care Unavailable Arnold Caban Attending Unavailable Mirela, Will Primary Care Unavailable Celine Boateng Attending Unavailable Mirela, Will Primary Care Unavailable Nemesio Sanderson Attending Unavailable GAVIN GOMEZ Attending Unavailable MIRELA WILL A Referring Unavailable TESTRAKE, GAVIN Referring Unavailable TESTRAKE, GAVIN Referring Unavailable MEGAN AMADOR (CN) Attending Unavailable MIRELA, WILL A Referring Unavailable MEGAN AMADOR (CNM) Referring Unavailable TESTRAKE, GAVIN Attending Unavailable TESTRAKE, GAVIN Referring Unavailable TESTRAKE, GAVIN Referring Unavailable TESTRAKE, GAVIN Referring Unavailable TESTRAKE, GAVIN Attending Unavailable TESTRAKE, GAVIN Referring Unavailable KEVIN OSORIO Attending Unavailable MEGAN AMADOR (CNM) Referring Unavailable FAWN COYNE Attending Unavailable MARIANA CORDERO Referring Unavailable MIRELAKEVINWILL Odalys Referring Unavailable MIRELA, WILL A Attending Unavailable MIRELA, WILL A Referring Unavailable MIRELA, WILL A Referring Unavailable MIRELA, WILL A Referring Unavailable ABBE MILLAN (ADMINISTRATIVE LIBRARY ASSISTANT) Attending Unavailable ABBE MILLAN (ADMINISTRATIVE LIBRARY ASSISTANT) Attending Unavailable ABBE MILLAN (ADMINISTRATIVE LIBRARY ASSISTANT) Referring Unavailable MIRELA, WILL A Referring Unavailable [...] SOURCE 02/28/2018 Active Mixed hyperlipidemia NA Active [place] / E78.2(ICD-10) [facility] Main [place] Rep[facility] 01/01/2018 Active Other specified NA Active [facility] diabetes mellitus [facility] with other diabetic [place] kidney complication Repository / E13.29(ICD-10) 01/01/2018 Active Other specified NA Active [place] diabetes mellitus [facility] with hyperglycemia / [place] E13.65(ICD-10) Repository 04/24/2018 Unknown L60.0 - Ingrowing Nemesio Sanderson Active [facility] nail / L60.0(ICD-10) [facility] 03/03/2018 Unknown E11.9 - Type 2 Deal, Dre Active [facility] diabetes mellitus [facility] without Hospital complications / Repository E11.9(ICD-10) 03/03/2018 Unknown Q05.7 - Lumbar spina Deal, Dre Active [place] bifida without Community hydrocephalus / Hospital Q05.7(ICD-10) Repository 03/03/2018 Unknown S30.0XXA - Contusion Deal, Dre Active [place] of lower back and Community pelvis, initial Hospital encounter / Repository S30.0XXA(ICD-10) 04/17/2018 Unknown Q05.9 - Spina Fung, Active [place] bifida, unspecified [facility] / Q05.9(ICD-10) Hospital Repository 01/23/2018 Unknown 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 / Hospital E04.1(ICD-10) Repository 01/01/2018 Active Nontoxic single NA Active [facility] thyroid nodule / Clinic Main E04.1(ICD-10) [place] Rep[facility] 12/26/2017 Active Contusion of PETERSEN, Active [place] abdominal wall, ANNAMARIA FELICIANOITA Clinic Other initial encounter / [place] S30.1XXA(ICD-10) Repository 12/24/2017 Unknown R10.819 - Abdominal Cornici, Jayson Active [place] tenderness, Community unspecified site / Hospital R10.819(ICD-10) Repository 12/11/2017 Active Other specified ANNE CHRISTENSEN Active [facility] postprocedural Clinic Other states / [place] Z98.890(ICD-10) Repository 12/11/2017 Active Personal history of ALI NOHUMA Active [facility] other diseases of Clinic Other the digestive system [place] / Z87.19(ICD-10) Repository 05/04/2016 Active Tubulo-interstitial NA Active [facility]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, not Clinic Main specified as acute [place] or chronic / Repository N12(ICD-10) 12/25/2013 Active Urinary tract NA Active [facility] infection, site not Clinic Main specified / [place] N39.0(ICD-10) Repository 10/17/2017 Active Incisional hernia ALI, NOAMAN Active [place] with obstruction, Clinic Other without gangrene / [place] K43.0(ICD-10) Repository 10/17/2017 Admitting Unknown / ANNE CHRISTENSEN S Active [facility] diagnosis UNK(Unknown) [facility] System Repository 10/18/2016 Active Type 2 diabetes NA Active [place] mellitus with other Clinic Main diabetic kidney [place] complication / Repository E11.29(ICD-10) 10/18/2016 Active Proteinuria, NA Active [place] unspecified / Clinic Main R80.9(ICD-10) [place] Rep[facility] 10/10/2017 Active Type 2 diabetes NA Active [place] mellitus without Clinic Main complications / [place] E11.9(ICD-10) Repository 08/04/2017 Active Type 2 diabetes NA Active [place] mellitus with other Clinic Main diabetic [place] neurological Repository complication / E11.49(ICD-10) 07/28/2017 Active Excessive and NA Active [place] frequent Clinic Main menstruation with [place] irregular cycle / Repository N92.1(ICD-10) 07/28/2017 Active Irregular NA Active [place] menstruation, Clinic Main unspecified / [place] N92.6(ICD-10) Repository 07/27/2017 Active Non-pressure chronic NA Active [place] ulcer of other part Clinic Main of left foot with [place] fat layer exposed / Repository L97.522(ICD-10) 07/27/2017 Active Unknown / TESTRAKE, Active [place] UNK(Unknown) GAVIN [facility] [place] Rep[facility] 08/11/2017 Unknown R07.89 - Other chest Mirela, Active [facility] pain / [facility] R07.89(ICD-10) Hospital Repository PROCEDURES PROCEDURES No Procedure Records FoundRESULTS RESULTS ALBUMIN/CREAT RATIO Collected: 06/18/2018 Status: F Source: [place] 9:40 AM [facility] REPOSITORY TYPE [...] 1994, 25:107) Performed By: #### UACR #### [facility] [address] [place] [phone] COMP METABOLIC PANEL Collected: 06/18/2018 Status: F Source: [place] 9:35 AM CLINIC MAIN CAMPUS REPOSITORY TYPE CODE [...] mg/dL Glucose High 230 Result Comment: The Stateless Diabetes Association (ADA) provides guidance for cutoff [...] Standards of Medical Care in Diabetes 2016, Stateless Diabetes Association. Diabetes Care. 2016.39(Suppl 1). LAB [...] Performed By: #### CMP, LIPNF, HBA1C #### [facility] [address] [place], [place] [address] LIPID PANEL, NONFAST Collected: 06/18/2018 Status: F Source: [place] 9:35 AM [facility] [place] REPOSITORY TYPE CODE TESTS RESULT OUT OF [...] Desk Reference: National Heart, Lung, and Blood [place]. National Institutes of Health. 2001: NIH Publication No. 01-3305. 2. An International Atherosclerosis Society position paper: global recommendations for the management of dyslipidemia: executive summary, Atherosclerosis. 2014: 232(2):410-413. Performed By: #### CMP, LIPNF, HBA1C #### [facility] [address] [place], [place] [address] HEMOGLOBIN A1C Collected: 06/18/2018 Status: F Source: [place] 9:35 AM [facility] [place] REPOSITORY TYPE CODE TESTS RESULT OUT OF REFERENCE UNITS RANGE LAB HGBA1C 4.3-5.6 % High Hemoglobin A1c 9.3 Result Comment: Stateless Diabetes Association guidelines indicate that patients with HgbA1c in the range 5.7-6.4% are at increased risk for development of diabetes, and intervention by lifestyle modification may be beneficial. HgbA1c greater or equal to 6.5% is considered diagnostic of diabetes. LAB HBA0 mg/dL Est. Average Glucose 220 Result Comment: eAG: (Estimated average glucose) is a calculated value from HgbA1c and is sales representative leather goods of the average blood glucose level in the last 2-3 month period. Performed By: #### CMP, LIPNF, HBA1C #### [facility] [address] [place], [place] [address] DISCHARGE INSTRUCTION Observed: 06/16/2018 Status: F Source: [place] 12:00 AM [facility] REPOSITORY [facility] Medical Records Department [address] [place] [address] Discharge Instruction 06/15/18 1846 MR#: [id number] Acct: [id number] Name: DEBBY BAILON Rep #: [id number] : 1980 37 From: Will Barcenas MD [...] your Primary Care Provider. Call [facility] ([phone]) or report to the closest Emergency Room. Call 911 if necessary. 06/16/18 0000 <Electronically signed by Will Barcenas MD> Date Will Barcenas MD Cosigner Signature (If Indicated): Date CC: Will Dietz MD EMERGENCY DEPARTMENT Observed: 06/16/2018 Status: F Source: [place] SUMMARY 12:00 AM [facility] REPOSITORY [facility] Medical Records Department [address] [place] [address] Emergency Department Summary 06/15/18 1843 MR#: [id number] Acct: [id number] Name: DEBBY BAILON Rep #: [id number] : 1980 37 From: Will Barcenas MD PCP: Will Dietz MD Status: DEP ER - ER Visit Summary Date of Service: 06/15/18 Chief Complaint: Rectal bleeding History of Present Illness: The patient is a 37 F history of xhr-lmeuovb-yqxzsgesk diabetes, spina bifida and neurogenic bladder chronic [...] uncertain etiology This note was generated with [employer] dictation software. It may contain incorrect words, [...] problems, contact your Primary Care Provider. Call [facility] ([phone]) or report to the closest Emergency Room. Call 911 if necessary. 06/16/18 0000 <Electronically signed by Will Barcenas MD> Date Will Barcenas MD Cosigner Signature (If Indicated): Date CC: Will Dietz MD CBC-COMPLETE BLOOD CNT Collected: 06/15/2018 Status: F Source: [place] NO DIFF 5:34 PM [facility] REPOSITORY TYPE CODE TESTS RESULT OUT [...] MPV 10.8 Performed By: #### L100.0500 #### [facility] [address] [place], [address] EMERGENCY DEPARTMENT Observed: 06/05/2018 Status: F Source: [place] SUMMARY 4:12 PM [facility] REPOSITORY [facility] Medical Records Department [address] [place] [address] Emergency Department Summary 06/05/18 1609 MR#: [id number] Acct: [id number] Name: DEBBY BAILON Rep #: [id number] : 1980 37 From: Jayson Yost MD [...] knee strain] This note was generated with [employer] dictation software. It may contain incorrect words, [...] your Primary Care Provider. Call [facility] ([phone]) or report to the closest Emergency Room. Call 911 if necessary. 06/05/18 1612 <Electronically signed by Jayson Yost MD> Date Jayson Yost MD Cosigner Signature (If Indicated): Date CC: Will Dietz MD KNEE 4 OR MORE Observed: 06/05/2018 Status: F Source: [place] VIEWS 2:00 PM [facility] REPOSITORY [facility] Imaging Services [facility] [place] [place] [address] Knee 4 or More Views MR#: [id number] Acct: [id number] Name: DEBBY BAILON Rep #: [id number] : 1980 F 37 From: Stephan Sood MD PCP: Will Dietz MD Status: REG ER Study: Knee 4 or More Views Date of Exam: 06/05/18 Exam# [id number] Ordering Dr: Jayson Yost MD STUDY: X-RAY [...] Stephan Sood MD at 14:46 EST Tel [phone], Service support , CC: Will Dietz MD; Jayson Yost MD Shank Breaker: Signed CBC Collected: 05/25/2018 Status: F Source: [facility] 8:19 PM [facility] REPOSITORY TYPE CODE TESTS RESULT OUT OF [...] Performed By: #### CBC, ADIFF, ANEU #### [address] [address] #### BMP, GFR #### [address] [address] .AUTO DIFF Collected: 05/25/2018 Status: F Source: [facility] 8:19 PM [facility] REPOSITORY TYPE CODE TESTS RESULT OUT OF [...] Performed By: #### CBC, ADIFF, ANEU #### [address] [address] #### BMP, GFR #### [address] [address] .NEUABS Collected: 05/25/2018 Status: F Source: [facility] 8:19 PM [facility] REPOSITORY TYPE CODE TESTS RESULT OUT OF REFERENCE UNITS RANGE LAB ANEU(LOINC) 2.85-6.16 10 3/mcL High Neutrophil, 9.50 Absolute Performed By: #### CBC, ADIFF, ANEU #### [address] [address] #### BMP, GFR #### [address] [address] BMP Collected: 05/25/2018 Status: F Source: [facility] 8:19 [facility] REPOSITORY TYPE CODE TESTS RESULT OUT OF [...] Performed By: #### CBC, ADIFF, ANEU #### [address] [address] #### BMP, GFR #### [address] [address] .GFR Collected: 05/25/2018 Status: F [facility] REPOSITORY TYPE CODE TESTS RESULT OUT OF REFERENCE UNITS RANGE LAB GFRAA(LOINC ml/min/1.73 ) sqm GFR 70 Stateless Result Comment: GFR Population mean for , [...] Performed By: #### CBC, ADIFF, ANEU #### [address] [address] #### BMP, GFR #### [address] [address] Observed: 05/25/2018 Status: F Source: [facility] 8:19 PM [facility] REPOSITORY . MICRO - Microbiology PROCEDURE: Urine [...] Locations *1: This test was performed at: [facility], [address] [place] [address], [address] [place] [address] Performed By: #### CUR #### [address] [address] UA Collected: 05/25/2018 Status: F Source: [facility] 8:11 PM [facility] REPOSITORY TYPE CODE TESTS RESULT OUT OF [...] Moderate Performed By: #### UA, UAMICAO #### [place] [address] #### PREGU #### [address] [address] PREGU Collected: 05/25/2018 Status: F Source: [facility] 8:11 PM [facility] REPOSITORY TYPE CODE TESTS RESULT OUT OF RANGE REFERENCE UNITS LAB PREGU(LOIN C) Test Negative Urine LAB PRUG1(LOIN C) Unknown test HCG not (u) int detected. Performed By: #### UA, UAMICAO #### [address] [address] #### PREGU #### [place] [address] [place], [place] [address] .URINALYSIS MICROSCOPIC Collected: 05/25/2018 Status: F Source: [facility] 8:11 PM [facility] REPOSITORY TYPE CODE TESTS RESULT OUT OF RANGE REFERENCE UNITS LAB WBCUA(LOIN None Seen /hpf C) Unknown UA WBC LOADED LAB RBCUA(LOIN None Seen /hpf C) Unknown UA RBC 5-10 LAB EPIUA(LOIN None Seen /hpf C) Unknown UA Squam Epithelial 0-5 LAB BACUA(LOIN /hpf C) Unknown UA Bacteria Trace Performed By: #### UA, UAMICAO #### [place] [address] #### PREGU #### [address] [address] EMERGENCY DEPARTMENT Observed: 05/11/2018 Status: F Source: [place] SUMMARY 12:18 PM [facility] REPOSITORY [facility] Medical Records Department [address] [place] [address] Emergency Department Summary 05/11/18 1140 MR#: [id number] Acct: [id number] Name: DEBBY BAILON Rep #: [id number] : 1980 37 From: Terrence Ramon MD [...] Dysuria, headache This note was generated with [employer] dictation software. It may contain incorrect words, [...] your Primary Care Provider. Call [facility] ([phone]) or report to the closest Emergency Room. Call 911 if necessary. 05/11/181217 <Electronically signed by Terrence Ramon MD> Date Terrence Ramon MD Cosigner Signature (If Indicated): Date CC: Will Dietz MD DISCHARGE INSTRUCTION Observed: 05/11/2018 Status: F Source: [place] 12:18 PM [facility] REPOSITORY [facility] Medical Records Department [address] [place] [address] Discharge Instruction 05/11/18 1218 MR#: [id number] Acct: [id number] Name: DEBBY BAILON Rep #: [id number] : 1980 37 From: Terrence Ramon MD [...] your Primary Care Provider. Call [facility] ([phone]) or report to the closest Emergency Room. Call 911 if necessary. 05/11/18 1218 <Electronically signed by Terrence Ramon MD> Date Terrence Ramon MD Cosigner Signature (If Indicated): Date CC: Will Dietz MD URINALYSIS, COMPLETE Collected: 05/11/2018 Status: F Source: [place] 11:45 AM [facility] REPOSITORY Order Comment: How was Urine Obtained? ORE CRUSHER TO SPECIFY TYPE CODE TESTS RESULT OUT [...] URINE SEEN Performed By: #### L400.0001 #### [facility] [address] [place], [address] ,URINE Collected: 05/11/2018 Status: F Source: [place] 11:45 AM [facility] [facility] RE[facility] TYPE CODE TESTS RESULT OUT OF REFERENCE UNITS RANGE LAB L400.8000 Negative Normal HCGUQUAL Negative Result Comment: Very dilute urine specimens, as indicated by a low specific gravity, may not contain sales representative leather goods levels of hCG. If is still suspected, a first morning urine specimen should be collected 48 hours later and tested. Performed By: #### [id number] #### [facility] [address] [place], [place], [address] PROGRESS Observed: 05/09/2018 Status: COMPLETED Source: [place] 10:51 AM [facility] REPOSITORY HNO ID: [id number] Author: Will Dietz Service: (none) Author Type: [...] 12/05/2017 - Dysthymic disorder Depression (non-psychotic), [facility] - History of kidney stones 01/04/2016 [...] attacks - Paroxysmal SVT (supraventricular tachycardia) ([facility]) 07/03/2017 Per 48 Hr event monitor 06/30/2017 [...] E13.29 Insulin: No Blood-Glucose Meter (ACCU[place]CHEK ANISH[place] [facility] [place] kit. Dx: Other DM [...] daily as needed. [facility] Insulin [place], Disposable, 32 gauge x 5/16 ndle Use [...] MD CNOV Observed: 05/09/2018 Status: COMPLETED Source: [place] 10:40 AM [facility] REPOSITORY Office Visit (FAMPWS) DEBBY BAILON ([id number]) 1980 F Date Time Provider Department 05/09/18 [...] (diabetes mellitus), secondary, uncontrolled, w/renal complications ([facility]) 12/05/2017 - Dysthymic disorder Depression (non-psychotic), [facility] - History of kidney stones 01/04/2016 - History of recurrent UTIs 11/28/2011 - Hydronephrosis, right 01/04/2016 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 - Lumbago 02/12/2015 - Migraine without aura and without status migrainosus, not intractable 10/18/2016 - Miscarriage - Morbid obesity ([facility]) 02/12/2015 - Muscle weakness of left lower extremity 08/07/2013 - Neck pain 05/02/2013 - Neurogenic bladder 02/12/2015 - Neurogenic bowel 01/06/2016 - Neuropathy ([facility]) 02/12/2015 post back surgery with secondary infection. [...] E13.29 Insulin: No Blood-Glucose Meter (ACCU-CHEK ANISH[place] [facility] [place] 1 meter kit. Dx: Other DM [...] daily as needed. 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 Migraine without aura and without status migrai*INVALID FOR*02/28/2018 Type 2 diabetes mellitus with albuminuria ([facility])*INVALID FOR* Well adult exam [Z00.00] INVALID FOR* [...] 05/09/18 PROGRESS Observed: 05/03/2018 Status: COMPLETED Source: [place] 11:06 AM [facility] REPOSITORY O ID: [id number] Author: Gavin Gomez Service: (none) Author Type: [...] 12/05/2017 - Dysthymic disorder Depression (non-psychotic), [facility] - History of kidney stones 01/04/2016 [...] attacks - Paroxysmal SVT (supraventricular tachycardia) ([facility]) 07/03/2017 Per 48 Hr event monitor 06/30/2017 - Primary insomnia 02/17/2016 - Spina bifida (HCC) 01/06/2016 - Thyroid cyst 01/01/2018 Complex right sided cysts. US 12/2017, biopsy per Dr. Josue 01/23/2018 benign. Repeat US in a year. - Type 2 diabetes mellitus with albuminuria ([facility]) 10/18/2016 - Type 2 diabetes mellitus with proteinuria ([facility]) 02/19/2016 - Ulcer of left foot ([facility]) 02/21/2017 - Ventral hernia without obstruction or gangrene - Weakness of both upper extremities 08/07/2013 Chronic Current Outpatient Prescriptions: liraglutide (VICTOZA) 0.6 mg/ 0.1 ml subcutaneous pen injector Inject 0.6 mg subcutaneously once daily. After one week increase to 1.2mg daily Insulin [place]o, Disposable, 32 gauge x 5/16 ndle Use [...] mouth as needed. Blood-Glucose Meter (ACCU-CHEK ANISH[place] [facility] [place] 1 [place] kit. Dx: Other DM [...] DPM PROGRESS Observed: 05/03/2018 Status: COMPLETED Source: [place] 10:53 AM [facility] REPOSITORY HNO ID: [id number] Author: Elizabeth Olvera Service: (none) Author Type: (none) Type: Progress Notes Filed: 05/03/2018 12:23 PM Note Text: AMB ROOMING INTAKE FLOWSHEET DATA Risk Screening Do you have concerns about personal safety or safety in the home?: No Patient presents for 1 week post nail avulsion, left medial Hallux. Elizabeth Olvera CNOV Observed: 05/03/2018 Status: COMPLETED Source: [place] 10:40 AM [facility] REPOSITORY Office Visit (PODIWS) UVALDODEBBY L ([id number]) 1980 F Date Time Provider Department 05/03/18 10:40 AM GAVIN GOMEZ During your visit today, we recorded the following information about you: Elizabeth aKyy 05/03/2018 12:23 PM Signed AMB ROOMING INTAKE [...] 12/05/2017 - Dysthymic disorder Depression (non-psychotic), [facility] - History of kidney stones 01/04/2016 [...] - Neurogenic bowel 01/06/2016 - Neuropathy ([facility]) 02/12/2015 post back surgery with secondary infection. Seeing Dr. Gregg - Numbness and tingling of left arm and leg 08/07/2013 - Panic attacks - Paroxysmal SVT (supraventricular tachycardia) ([facility]) 07/03/2017 Per 48 Hr event monitor 06/30/2017 - Primary insomnia 02/17/2016 - Spina bifida ([facility]) 01/06/2016 - Thyroid cyst 01/01/2018 Complex right sided cysts. US 12/2017, biopsy per Dr. Josue 01/23/2018 benign. Repeat US in a year. - Type 2 diabetes mellitus with albuminuria ([facility]) 10/18/2016 - Type 2 diabetes mellitus with proteinuria ([facility]) 02/19/2016 - Ulcer of left foot ([facility]) 02/21/2017 - Ventral hernia without obstruction or gangrene - Weakness of both upper extremities 08/07/2013 Chronic Current Outpatient Prescriptions: liraglutide (VICTOZA) 0.6 mg/ 0.1 ml subcutaneous pen injector Inject 0.6 mg subcutaneously once daily. After one week increase to 1.2mg daily Insulin [place], Disposable, 32 gauge x 5/16 ndle Use [...] mouth as needed. Blood-Glucose Meter (ACCU-CHEK ANISH) [facility] [place] 1 meter kit. Dx: Other DM [...] and 2nd toes Referring Provider: GAVIN GOMEZ [[id number]] Allergies As of Date: 05/03/2018 Noted Allergy [...] 05/03/18 PROGRESS Observed: 04/30/2018 Status: COMPLETED Source: [place] 3:30 PM [facility] REPOSITORY O ID: [id number] Author: Sandra Aguiar (Pharmacist) Service: (none) Author Type: Pharmacist Type: Progress Notes Filed: 04/30/2018 4:25 PM Note Text: Patient consents to pharmacy collaborative practice agreement. REASON FOR CONSULT: DM GOALS: A1c < 7% CONSULTING PROVIDER: Dr. Dietz Date of Consult: 02/28/18 Debby Bailon is a 37 year old female was last seen in [facility] by PCP, Dr. Will Dietz MD on [...] Adherence: denies missed doses. ? Pharmacy: [facility] ? Rx coverage: Medicare Hum[employer] ? Affordability: no issues ? Diabetes supplies: [facility] meter ? 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[facility]) Lumbago Neuropathy ([facility]) Morbid Obesity ([facility]) Chronic Pain Neurogenic Bladder Hydronephrosis, Right History of Kidney Stones Spina Bifida ([facility]) Neurogenic Bowel Primary Insomnia Type 2 Diabetes Mellitus With Proteinuria ([facility]) Pyelonephritis Diabetic Eye Exam ([facility]) Type 2 Diabetes Mellitus With Albuminuria ([facility]) Well Adult Exam Paroxysmal Svt (Supraventricular Tachycardia) ([facility]) Dm (Diabetes Mellitus), Secondary, Uncontrolled, W/Renal Complications ([facility]) S/P Hernia Repair Thyroid Cyst Migraine Without [...] (diabetes mellitus), secondary, uncontrolled, w/renal complications ([facility]) 12/05/2017 - Dysthymic disorder Depression (non-psychotic), [facility] - History of kidney stones 01/04/2016 - History of recurrent UTIs 11/28/2011 - Hydronephrosis, right 01/04/2016 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 - Lumbago 02/12/2015 - Migraine without aura and without status migrainosus, not intractable 10/18/2016 - Miscarriage - Morbid obesity ([facility]) 02/12/2015 - Muscle weakness of left lower extremity 08/07/2013 - Neck pain 05/02/2013 - Neurogenic bladder 02/12/2015 - Neurogenic bowel 01/06/2016 - Neuropathy ([facility]) 02/12/2015 post back surgery with secondary infection. Seeing Dr. Gregg - Numbness and tingling of left arm and leg 08/07/2013 - Panic attacks - Paroxysmal SVT (supraventricular tachycardia) ([facility]) 07/03/2017 Per 48 Hr event monitor 06/30/2017 - Primary insomnia 02/17/2016 - Spina bifida ([facility]) 01/06/2016 - Thyroid cyst 01/01/2018 Complex right sided cysts. US 12/2017, biopsy per Dr. Josue 01/23/2018 benign. Repeat US in a year. - Type 2 diabetes mellitus with albuminuria ([facility]) 10/18/2016 - Type 2 diabetes mellitus with proteinuria ([facility]) 02/19/2016 - Ulcer of left foot ([facility]) 02/21/2017 - Ventral hernia without obstruction or [...] E13.29 Insulin: No Blood-Glucose Meter (ACCU-CHEK ANISH[place] [facility] [place] 1 [place] kit. Dx: Other DM [...] patient to continue checking FBGs daily, contact [facility] Medical re: DM supplies ? Labs in April Health Maintenance issues addressed: DILATED RETINAL EXAM due on 01/25/2018 Patient is scheduled to see PCP 05/09. Patient to return to clinic for PharmD f/u on 06/05. Patient verbalized understanding of instructions. Sandra Aguiar, [place], BCPS CNOV Observed: 04/30/2018 Status: COMPLETED Source: [place] 3:30 PM [facility] REPOSITORY Office Visit (PHMEWO) UVALDODEBBY Colette ([id number]) 1980 F Date Time Provider Department 04/30/18 3:30 PM COSME (PHARMACIST), SANDRA BENSON During your visit today, we recorded the following information about you: SANDRA AGUIAR PHARMACIST 04/30/2018 4:25 PM Signed Patient consents to pharmacy collaborative practice agreement. REASON FOR CONSULT: DM GOALS: A1c < 7% CONSULTING PROVIDER: Dr. Dietz Date of Consult: 02/28/18 Debby Colette Bailon is a 37 year old female was last seen in [facility] by PCP, Dr. Will Dietz MD on [...] Adherence: denies missed doses. ? Pharmacy: [facility] ? Rx coverage: Medicare Hum[employer] ? Affordability: no issues ? Diabetes supplies: [facility] meter ? 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[facility]) Lumbago Neuropathy ([facility]) Morbid Obesity ([facility]) Chronic Pain Neurogenic Bladder Hydronephrosis, Right History of Kidney Stones Spina Bifida ([facility]) Neurogenic Bowel Primary Insomnia Type 2 Diabetes Mellitus With Proteinuria ([facility]) Pyelonephritis Diabetic Eye Exam ([facility]) Type 2 Diabetes Mellitus With Albuminuria ([facility]) Well Adult Exam Paroxysmal Svt (Supraventricular Tachycardia) ([facility]) Dm (Diabetes Mellitus), Secondary, Uncontrolled, W/Renal Complications ([facility]) S/P Hernia Repair Thyroid Cyst Migraine Without [...] (diabetes mellitus), secondary, uncontrolled, w/renal complications ([facility]) 12/05/2017 - Dysthymic disorder Depression (non-psychotic), [facility] - History of kidney stones 01/04/2016 [...] - Neurogenic bowel 01/06/2016 - Neuropathy ([facility]) 02/12/2015 post back surgery with secondary infection. Seeing Dr. Gregg - Numbness and tingling of left arm and leg 08/07/2013 - Panic attacks - Paroxysmal SVT (supraventricular tachycardia) ([facility]) 07/03/2017 Per 48 Hr event monitor 06/30/2017 - Primary insomnia 02/17/2016 - Spina bifida (HCC) 01/06/2016 - Thyroid cyst 01/01/2018 Complex right sided cysts. US 12/2017, biopsy per Dr. Josue 01/23/2018 benign. Repeat US in a year. - Type 2 diabetes mellitus with albuminuria ([facility]) 10/18/2016 - Type 2 diabetes mellitus with proteinuria ([facility]) 02/19/2016 - Ulcer of left foot ([facility]) 02/21/2017 - Ventral hernia without obstruction or [...] E13.29 Insulin: No Blood-Glucose Meter (ACCU-CHEK ANISH) [facility] [place] 1 [place] kit. Dx: Other DM [...] patient to continue checking FBGs daily, contact [facility] Medical re: DM supplies ? Labs in April Health Maintenance issues addressed: DILATED RETINAL EXAM due on 01/25/2018 Patient is scheduled to see PCP 05/09. Patient to return to clinic for PharmD f/u on 06/05. Patient verbalized understanding of instructions. Sandra Aguiar PharmD, [facility] SANDRA AGUIAR, PHARMACIST 04/30/2018 4:04 PM Signed [facility] Medical - glucometer, test strips, how to get from them Victoza 0.6mg daily, after one week 1.2mg daily Stop glimepiride Check sugars every morning before breakfast Bring machine next appointment Sandra Aguiar PharmD, [facility] [phone] Referring Provider: WILL DIETZ [[id number]] Allergies As of Date: 04/30/2018 Noted Allergy [...] to 1.2mg dailyDisp: 2 PenRfl: 1 Insulin [place], Disposable, 32 gauge x 5/16 ndleUse once [...] Bring machine next appointment Sandra Aguiar, PharmD, [facility] [phone] Prescriptions ordered this encounter Disp Refills Start [...] 04/30/18 PROGRESS Observed: 04/26/2018 Status: COMPLETED Source: [place] 10:32 AM [facility] REPOSITORY O ID: [id number] Author: Brittney Cook RN Service: (none) Author [...] RN PROGRESS Observed: 04/26/2018 Status: COMPLETED Source: [place] 9:47 AM [facility] REPOSITORY O ID: [id number] Author: Gavin Gomez Service: (none) Author Type: [...] 12/05/2017 - Dysthymic disorder Depression (non-psychotic), [facility] - History of kidney stones 01/04/2016 [...] - Neurogenic bowel 01/06/2016 - Neuropathy ([facility]) 02/12/2015 post back surgery with secondary infection. Seeing Dr. Gregg - Numbness and tingling of left arm and leg 08/07/2013 - Panic attacks - Paroxysmal SVT (supraventricular tachycardia) ([facility]) 07/03/2017 Per 48 Hr event monitor 06/30/2017 - Primary insomnia 02/17/2016 - Spina bifida ([facility]) 01/06/2016 - Thyroid cyst 01/01/2018 Complex right sided cysts. US 12/2017, biopsy per Dr. Josue 01/23/2018 benign. Repeat US in a year. - Type 2 diabetes mellitus with albuminuria ([facility]) 10/18/2016 - Type 2 diabetes mellitus with proteinuria ([facility]) 02/19/2016 - Ulcer of left foot ([facility]) 02/21/2017 - Ventral hernia without obstruction or [...] mouth as needed. Blood-Glucose Meter (ACCU-CHEK ANISH) [facility] [place] kit. Dx: Other DM [...] associated with type 2 diabetes mellitus ([facility]) PLAN: 1. History and physical examination performed. [...] DPM CNOV Observed: 04/26/2018 Status: COMPLETED Source: [place] 9:10 AM [facility] REPOSITORY Office Visit (PODIWS) DEBBY BAILON ([id number]) 1980 F Date Time Provider Department 04/26/18 [...] 12/05/2017 - Dysthymic disorder Depression (non-psychotic), [facility] - History of kidney stones 01/04/2016 - History of recurrent UTIs 11/28/2011 - Hydronephrosis, right 01/04/2016 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 - Lumbago 02/12/2015 - Migraine without aura and without status migrainosus, not intractable 10/18/2016 - Miscarriage - Morbid obesity ([facility]) 02/12/2015 - Muscle weakness of left lower extremity 08/07/2013 - Neck pain 05/02/2013 - Neurogenic bladder 02/12/2015 - Neurogenic bowel 01/06/2016 - Neuropathy ([facility]) 02/12/2015 post back surgery with secondary infection. Seeing Dr. Gregg - Numbness and tingling of left arm and leg 08/07/2013 - Panic attacks - Paroxysmal SVT (supraventricular tachycardia) ([facility]) 07/03/2017 Per 48 Hr event monitor 06/30/2017 [...] mouth as needed. Blood-Glucose Meter (ACCU-CHEK ANISH) [facility] [place] 1 meter kit. 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 Follow-up and Disposition History Recorded Encounter Status:Closed by GAVIN GOMEZ DPM on 04/27/18 EMERGENCY DEPARTMENT Observed: 04/26/2018 Status: F Source: [place] SUMMARY 8:16 AM [facility] REPOSITORY [facility] Medical Records Department [address] [place] [address] Emergency Department Summary 04/24/18 1628 MR#: [id number] Acct: [id number] Name: DEBBY BAILON Rep #: [id number] : 1980 37 From: Nemesio Sanderson DO [...] reports now having an appointment with her list of first job ideas at the [facility] on . The patient states that [...] dressed. I will write for a few Paris. The physical exam suggest more of an ingrown toenail then ingrown toenail with infection however we will keep her on the antibiotics. I believe the patient will have better outcome seeing her list of first job ideas and having the toenail removed. She will be given a postop shoe. Impression: 1. Ingrown left toenail This note was generated with [employer] dictation software. It may contain incorrect words, spelling, and punctuation that were not noted in review of the chart prior to signing ED Disposition - Plan for ED Patient: Disposition: Home or Assisted Living Chief Complaint: Wound Check Instructions: Understanding Ingrown Toenails Prescriptions: Hydrocodone Bitart/Apap 5-325 [Paris 5MG-325MG] 1 tab PO Q6H PRN PRN 3 Days #10 tab PRN Reason: Pain Additional Instructions: 1. See your list of first job ideas as scheduled 2. Epson salt soaks 3 times daily for 20 minutes each session. 3. Bacitracin ointment 3 times a day. 4. Keep the wound covered when wearing a sock. Otherwise you can allow the wound to be to the air 5. Postop shoe instead of tennis shoe 6. Ibuprofen 800 mg every 8 hours. 7. Paris sparingly for severe pain What to do if you have Problems For any increased pain, shortness of breath, bleeding, nausea or vomiting, chest pain, or any unexpected problems, contact your Primary Care Provider. Call [facility] ([phone]) or report to the closest Emergency Room. Call 911 if necessary. 04/26/18 0816 <Electronically signed by Nemesio Sanderson DO> Date Nemesio Sanderson DO Cosigner Signature (If Indicated): Date CC: Will Dietz MD EMERGENCY DEPARTMENT Observed: 04/23/2018 Status: F Source: [place] SUMMARY 8:29 PM [facility] REPOSITORY [facility] Medical Records Department [address] [place] [address] Emergency Department Summary 04/23/18 1918 MR#: [id number] Acct: [id number] Name: DEBBY BAILON Rep #: [id number] : 1980 37 From: Celine Boateng MD [...] her pain had increased. She called her list of first job ideas today and was referred to the emergency [...] 3 days. She has follow-up with her list of first job ideas tomorrow. At this time, I do not [...] left foot This note was generated with [employer] dictation software. It may contain incorrect words, [...] your Primary Care Provider. Call [facility] ([phone]) or report to the closest Emergency Room. Call 911 if necessary. 04/23/182028 <Electronically signed by Celine Boateng MD> Date Celine oBateng MD Cosigner Signature (If Indicated): Date CC: Will Dietz MD FOOT MIN 3 VIEWS Observed: 04/23/2018 Status: F Source: [place] 6:43 PM [facility] REPOSITORY [facility] Imaging Services [address] [place] [address] Foot min 3 Views MR#: [id number] Acct: [id number] Name: DEBBY ABILON Rep #: [id number] : 1980 F 37 From: Alexander Peck MD PCP: Will Dietz MD Status: REG ER Study: Foot min 3 Views Date of Exam: 04/23/18 Exam# [id number] Ordering Dr: Celine Boateng MD STUDY: X-RAY [...] CC: Will Dietz MD; Celine Boateng MD Shank Breaker: Signed EMERGENCY DEPARTMENT Observed: 04/14/2018 Status: F Source: [place] SUMMARY 6:10 PM [facility] REPOSITORY [facility] Medical Records Department [address] [place] [address] Emergency Department Summary 04/14/18 1516 MR#: [id number] Acct: [id number] Name: DEBBY BAILON Rep #: [id number] : 1980 37 From: Arnold Brice PCP: [...] Patient understands. She has a urologist with [facility]. Treatment Plan: [] Disposition: Discharge Impression: 1. Urinary tract infection 2. Left flank pain This note was generated with [employer] dictation software. It may contain incorrect words, [...] problems, contact your Primary Care Provider. Call [facility] ([phone]) or report to the closest Emergency Room. Call 911 if necessary. 04/14/18 1810 <Electronically signed by Arnold Brice> Date Arnold Brice Cosigner Signature (If Indicated): Date CC: Will Dietz MD URINALYSIS, COMPLETE Collected: 04/14/2018 Status: F Source: [place] 4:44 PM [facility] REPOSITORY Order Comment: Order Date: 04/14/18 Has [...] URINE SEEN Performed By: #### L400.0001 #### [facility] [address] [place], [address] Observed: 04/14/2018 Status: F Source: [place] CULTURE, URINE 4:44 PM [facility] REPOSITORY Order Date: 04/14/18 Has pt arrived? Y Urine Culture ORGANISM 1: Streptococcus mitis/ oralis [place] Count >100,000 ORGANISM 2: Staphylococcus epidermidis [place] Count 80,000-100,000 Streptococcus mitis/ oralis: REACTION Ampicillin $ 1 I Benzylpenicillin NF 0.25 I Cefotaxime $ <=0.12 S Ceftriaxone $ <=0.12 S Vancomycin $ 0.25 S (NF) indicates non-formulary drug at [facility] [facility] Approval by Infectious Disease Specialist [...] 1 S (NF) indicates non-formulary drug at [facility]. Approval by Infectious Disease Specialist required before non-formulary drugs may be ordered and/or dispensed. * CLSI guidelines does not recommend testing of cephalosporins. This interpretation is deduced from Beta-lactam/penicillin results. Performed By: #### M100.0650 #### [facility] [address] [place], [place], [id number] CBC W/DIFF, AUTOMATED Collected: 04/14/2018 Status: F Source: [place] 3:25 PM [facility] REPOSITORY TYPE CODE TESTS RESULT OUT [...] Lymph 1.66 Performed By: #### L100.0100 #### [facility] [address] [place], [address] BASIC METABOLIC Collected: 04/14/2018 Status: F Source: [place] PROFILE (BMP) 3:25 PM [facility] REPOSITORY TYPE CODE TESTS RESULT OUT [...] GAP 10 Performed By: #### L500.2500 #### [facility] [address] [place], [address] DISCHARGE INSTRUCTION Observed: 04/14/2018 Status: F Source: [place] 12:55 AM [facility] REPOSITORY [facility] Medical Records Department [address] [place] [address] Discharge Instruction 04/13/18 1935 MR#: [id number] Acct: [id number] Name: DEBBY BAILON Rep #: [id number] : 1980 37 From: Nemesio Pro MD [...] your Primary Care Provider. Call [facility] ([phone]) or report to the closest Emergency Room. Call 911 if necessary. 04/14/18 0055 <Electronically signed by Nemesio Pro MD> Date Nemesio Pro MD Cosigner Signature (If Indicated): Date CC: Will Dietz MD EMERGENCY DEPARTMENT Observed: 04/14/2018 Status: F Source: [place] SUMMARY 12:55 AM [facility] REPOSITORY [facility] Medical Records Department [address] [place] [address] Emergency Department Summary 04/13/18 1840 MR#: [id number] Acct: [id number] Name: DEBBY BAILON Rep #: [id number] : 1980 37 From: Nemesio Pro MD [...] 1. Constipation This note was generated with [employer] dictation software. It may contain incorrect words, [...] your Primary Care Provider. Call [facility] ([phone]) or report to the closest Emergency Room. Call 911 if necessary. 04/14/18 0055 <Electronically signed by Nemesio Pro MD> Date Nemesio Pro MD Cosigner Signature (If Indicated): Date CC: Will Dietz MD CBC W/DIFF, AUTOMATED Collected: 04/13/2018 Status: F Source: [place] 4:25 PM [facility] REPOSITORY TYPE CODE TESTS RESULT OUT [...] Lymph 1.96 Performed By: #### L100.0100 #### [facility] [address] [place], [place], [address] COMPREHENSIVE METABOLIC Collected: 04/13/2018 Status: F Source: [facility] 4:25 PM [facility] REPOSITORY TYPE CODE TESTS RESULT OUT [...] GAP Performed By: #### L500.4050, L501.2450 #### [facility] [address] [facility] [place], [address] LIPASE Collected: 04/13/2018 Status: F Source: [place] 4:25 PM [facility] REPOSITORY TYPE CODE TESTS RESULT OUT OF RANGE REFERENCE UNITS LAB L501.2450 73-393 U/L Normal LIPASE 78 Performed By: #### L500.4050, L501.2450 #### [facility] [address] [facility] [place], [address] ,SERUM,HCG QUALI. Collected: Status: F Source: [place] 04/13/2018 4:25 PM [facility] REPOSITORY TYPE CODE TESTS RESULT OUT OF REFERENCE UNITS RANGE LAB L700.7000 0-9 Nonpreg Negative Normal HCGSQUAL NEGATIVE LAB L700.6700 =>Qualitative mIU/mL Normal HCG Qual < 1 triggr Performed By: #### L700.6800 #### [facility] [address] [facility] [place], [address] URINALYSIS, COMPLETE Collected: 04/13/2018 Status: F Source: [place] 4:10 PM [facility] REPOSITORY Order Comment: How was Urine Obtained? [...] URINE SEEN Performed By: #### L400.0001 #### [facility] [address] [place], [place], [address] Observed: 04/13/2018 Status: F Source: [place] CULTURE, URINE 4:10 PM [facility] REPOSITORY Urine Culture ORGANISM 1: Mixed Gram Positive Organisms [place] Count >100,000 MIX CULTURE Mixed contaminants. Submit a new specimen if indicated. Performed By: #### M100.0650 #### [facility] [address] [place], [address] ABDOMEN/PELVIS WITH Observed: 04/13/2018 Status: F Source: [place] CONTRAST 3:43 PM [facility] REPOSITORY [facility] Imaging Services [address] [place] [address] Abdomen/Pelvis WITH Contrast MR#: [id number] Acct: [id number] Name: DEBBY BAILON Rep #: [id number] : 1980 F 37 From: Will Joe MD PCP: Will Dietz MD Status: REG ER Study: Abdomen/Pelvis WITH Contrast Date of Exam: 04/13/18 Exam# [id number] Ordering Dr: Nemesio Pro MD STUDY: CT [...] cannot be entirely excluded. Electronically Signed: Will Jeo MD at 18:18 EST , Service support , CC: Nemesio Pro MD; Will Dietz MD Shank Breaker: Signed DISCHARGE SUMMARY Observed: 04/12/2018 Status: F Source: [place] 11:04 AM [facility] REPOSITORY [facility] Medical Records Department [address] [place] [address] Discharge Summary 04/12/18 1056 MR#: [id number] Acct: [id number] Name: DEBBY BAILON Rep #: [id number] : 1980 37 From: Reymundo Encarnacion DO PCP: Will Dietz MD Status: ADM OLEG Y Location: [place] [address] Discharge Date and Diagnosis - Problem List [...] no evidence of bowel obstruction. 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. Patient states that she is not [...] applicable Code Visit OBSV E AND M: 91317 Observation care discharge 04/12/18 1104 <Electronically signed by Reymundo Encarnacion DO> Date Reymundo Encarnacion DO Cosigner Signature (if applicable): Date CC: Reymundo Encarnacion DO; Will Dietz MD Signed DISCHARGE INSTRUCTION Observed: 04/12/2018 Status: F Source: [place] 10:56 AM [facility] REPOSITORY [facility] Medical Records Department [address] [place] [address] Instructions for Home/Discharge Instructions 04/12/18 1054 MR#: [id number] Acct: [id number] Name: DEBBY BAILON Rep #: [id number] : 1980 37 From: Reymundo Encarnacion DO [...] BEDSIDE GLUCOSE Collected: 04/12/2018 Status: F Source: [place] 8:18 AM [facility] REPOSITORY TYPE CODE TESTS RESULT OUT OF REFERENCE UNITS RANGE LAB L501.080 70-110 mg/dL High BEDSIDE GLU 208 Result Comment: MANAGEMENT OF PATIENT CARE PER NURSING PROTOCOL Performed By: #### L501.080 #### [facility] Point of Care [address] [place] [address] CONSULTATION Observed: 04/12/2018 Status: F Source: [place] 7:44 AM [facility] REPOSITORY [facility] Medical Records Department [address] [place] [address] Consultation 04/12/18 0741 MR#: [id number] Acct: [id number] Name: DEBBY BAILON Rep #: [id number] : 1980 37 From: Herbert Reza MD PCP: Will Dietz MD Status: ADM [facility]LEG Y [facility] Problem List (1) Hydronephrosis Status: Acute Qualifiers: [...] she is followed by urologist at the [facility]. Most likely this hydronephrosis is due [...] History (Last Reviewed 01/30/18 @ 14:24 by Luaren Rivas) History of cholecystectomy Z90.49 History of dilation and curettage Z98.890 History of spinal surgery Z98.890 Hx of foot surgery Z98.890 Hx of ventral hernia repair Z98.890, Z87.19 Status post gastric surgery Z98.890 Surgical History: cholecystectomy, - - D AND C, lumbar back surgery x2, foot surgery x2, abdominal stoma, ventral hernia repair. 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 regarding this finding and regarding her [...] 04/12/2018 Status: F Source: [place] 5:46 AM [facility] REPOSITORY TYPE CODE TESTS RESULT OUT [...] Lymph 1.00 Performed By: #### L100.0100 #### [facility] [address] [place], [place], [address] BASIC METABOLIC Collected: 04/12/2018 Status: F Source: [place] PROFILE (BMP) 5:46 AM [facility] REPOSITORY TYPE CODE TESTS RESULT OUT [...] GAP 11 Performed By: #### L500.2500 #### [facility] [address] [facility] [place], [address] ABDOMEN/PELVIS WITHOUT Observed: 04/12/2018 Status: F Source: [place] CONT 12:56 AM [facility] REPOSITORY [facility] Imaging Services [address] [place] [address] Abdomen/Pelvis without Cont MR#: [id number] Acct: [id number] Name: DEBBY BAILON Rep #: [id number] : 1980 F 37 From: Gavin Sanchez MD PCP: Will Dietz MD Status: ADM OLEG Study: Abdomen/Pelvis without Cont Date of Exam: 04/12/18 Exam# [id number] Ordering Dr: Gen Butt MD HISTORY: SEVERE [...] CC: Will Dietz MD; Gen Butt MD Shank Breaker: Signed BEDSIDE GLUCOSE Collected: 04/11/2018 Status: F Source: [place] 10[facility]17 PM [facility] TYPE CODE TESTS RESULT OUT OF REFERENCE UNITS RANGE LAB L501.080 70-110 mg/dL High BEDSIDE GLU 158 Result Comment: MANAGEMENT OF PATIENT CARE PER NURSING PROTOCOL Performed By: #### L501.080 #### [facility] Point of Care [address] [place] [address] HISTORY AND PHYSICAL Observed: 04/11/2018 Status: F Source: [place] EXAM 8:24 PM [facility] REPOSITORY [facility] Medical Records Department [address] [place] [address] History and Physical 04/11/18 1706 MR#: [id number] Acct: [id number] Name: DEBBY BAILON Rep #: [id number] : 1980 37 From: Megan Clark ADMINISTRATIVE LIBRARY ASSISTANT-C PCP: Will Dietz MD Status: ADM OLEG Y Location: [place] [address] <Megan Clark - Last Filed: 04/11/18 17:54> [...] ventral hernia repair. Psychiatric History: Anxiety, Depression [employer] DEVELOPER History: No pertinent [employer]OPLES[employer] DEVELOPER history Lives: Spouse/ Significant Other Smoking Status: [...] bowels Code Visit OBSV E AND M: 27118 Initial observation care L3 04/11/181754 <Electronically signed by Megan NGUYENC> Date Megan Clark NP-C 04/11/182023<Electronically signed by Sita Chung MD> Cosigner Signature: Date (if applicable) Sita Chung MD CC: NACHO Clark; Sita Chung MD; Will Dietz MD Signed EMERGENCY DEPARTMENT Observed: 04/11/2018 Status: F Source: [place] SUMMARY 5:53 PM [facility] REPOSITORY [facility] Medical Records Department [address] [place] [address] Emergency Department Summary 04/11/18 1536 MR#: [id number] Acct: [id number] Name: DEBBY BAILON Rep #: [id number] : 1980 37 From: Makenzie Wood MD [...] spina bifida This note was generated with [employer] dictation software. It may contain incorrect words, [...] problems, contact your Primary Care Provider. Call [facility] ([phone]) or report to the closest Emergency Room. Call 911 if necessary. 04/11/18 2922 <Electronically signed by Makenzie Wood MD> Date Makenzie Wood MD Cosigner Signature (If Indicated): Date CC: Will Dietz MD ABD INC DECUB Observed: 04/11/2018 Status: F Source: [place] AND/OR ERECT 3:36 PM [facility] REPOSITORY [facility] Imaging Services [address] [address] Abd Inc Decub and/or Erect MR#: [id number] Acct: [id number] Name: DEBBY BAILON Rep #: [id number] : 1980 F 37 From: Severino Aguilar MD PCP: Will Dietz MD Status: REG ER Study: Abd Inc Decub and/or Erect Date of Exam: 04/11/18 Exam# [id number] Ordering Dr: Makenzie Wood MD STUDY: X-RAY [...] CC: Will Dietz MD; Makenzie Wood MD Shank Breaker: Signed URINALYSIS, COMPLETE Collected: 04/11/2018 Status: F Source: [place] 3:05 PM [facility] REPOSITORY Order Comment: How was Urine Obtained? ORE CRUSHER TO SPECIFY TYPE CODE TESTS RESULT OUT [...] URINE SEEN Performed By: #### L400.0001 #### [facility] [address] [place], [address] CBC W/DIFF, AUTOMATED Collected: 04/11/2018 Status: F Source: [place] 1:45 PM [facility] REPOSITORY TYPE CODE TESTS RESULT OUT [...] Lymph 1.43 Performed By: #### L100.0100 #### [facility] [address] [place], [address] BASIC METABOLIC Collected: 04/11/2018 Status: F Source: [place] PROFILE ([facility]) 1:45 PM [facility] REPOSITORY TYPE CODE TESTS RESULT OUT [...] GAP 11 Performed By: #### L500.2500 #### [facility] [address] [place], [address] ,SERUM,HCG QUALI. Collected: Status: F Source: [place] 04/11/2018 1:45 PM [facility] REPOSITORY TYPE CODE TESTS RESULT OUT OF REFERENCE UNITS RANGE LAB L700.7000 0-9 Nonpreg Negative Normal HCGSQUAL NEGATIVE LAB L700.6700 =>Qualitative mIU/mL Normal HCG Qual < 1 triggr Performed By: #### L700.6800 #### [facility] [address] [place], [address] THYROID STIM HORMONE Collected: 04/11/2018 Status: F Source: [place] (TSH) 1:45 PM [facility] REPOSITORY Order Comment: Comments: as add on test TYPE CODE TESTS RESULT OUT OF RANGE REFERENCE UNITS LAB L501.9520 0.358-3.74 uIU/mL Normal TSH 1.00 Performed By: #### L501.9520 #### [facility] [address] [place] [address], [address] EMERGENCY DEPARTMENT Observed: 04/09/2018 Status: F Source: [place] SUMMARY 3:38 PM [facility] REPOSITORY [facility] Medical Records Department [address] [place] [address] Emergency Department Summary 04/09/18 1529 MR#: [id number] Acct: [id number] Name: DEBBY BAILON Rep #: [id number] : 1980 37 From: Kristen Ohara MD [...] advised to follow-up with her surgeon at [facility] as well as her primary care physician. Advised return to ED if worsening complaints. Disposition: Discharge home Impression: Abdominal pain This note was generated with [employer] dictation software. It may contain incorrect words, [...] problems, contact your Primary Care Provider. Call [facility] ([phone]) or report to the closest Emergency Room. Call 911 if necessary. 04/09/18 5357 <Electronically signed by Kristen Ohara MD> Date Kristen Ohara MD Cosigner Signature (If Indicated): Date CC: Will Dietz MD DISCHARGE INSTRUCTION Observed: 04/09/2018 Status: F Source: [place] 3:38 PM [facility] REPOSITORY [facility] Medical Records Department [address] [place] [address] Discharge Instruction 04/09/181537 MR#: [id number] Acct: [id number] Name: DEBBY BAILON Rep #: [id number] : 1980 37 From: Kristen Ohara MD [...] your Primary Care Provider. Call [facility] ([phone]) or report to the closest Emergency Room. Call 911 if necessary. 04/09/181537 <Electronically signed by Kristen Ohara MD> Date Kristen Ohara MD Cosigner Signature (If Indicated): Date CC: Will Dietz MD Observed: 04/09/2018 Status: F Source: [place] STOOL OCCULT BLOOD 2:40 PM [facility] IFOB REPOSITORY STOB iFOB Occult Blood Negative Performed By: #### M100.7900 #### [facility] [address] [place], [address] URINALYSIS, COMPLETE Collected: 04/09/2018 Status: F Source: [place] 1:30 PM [facility] REPOSITORY Order Comment: Order Date: 04/09/18 How [...] URINE SEEN Performed By: #### L400.0001 #### [facility] [address] [facility] [place], [address] ABDOMEN SINGLE VIEW Observed: 04/09/2018 Status: F Source: [place] (PORTABLE) 1:06 PM [facility] REPOSITORY [facility] Imaging Services [address] [place] [address] Abdomen Single View (Portable) MR#: [id number] Acct: [id number] Name: DEBBY BAILON Rep #: [id number] : 1980 F 37 From: Stephan Sood MD PCP: Will Dietz MD Status: REG ER Study: Abdomen Single View (Portable) Date of Exam: 04/09/18 Exam# [id number] Ordering Dr: Kristen Ohara MD STUDY: X-RAY [...] Stephan Sood MD at 14:01 EST Tel [phone], Service support , CC: Kristen Ohara MD; Will Dietz MD Shank Breaker: Signed ABDOMEN/PELVIS W IV CONT Observed: 04/09/2018 Status: F Source: [place] ONLY 1:06 PM [facility] REPOSITORY [facility] Imaging Services [address] [place] [address] Abdomen/Pelvis W IV Cont ONLY MR#: [id number] Acct: [id number] Name: DEBBY BAILON Rep #: [id number] : 1980 F 37 From: Stephan Sood MD PCP: Will Dietz MD Status: REG ER Study: Abdomen/Pelvis W IV Cont ONLY Date of Exam: 04/09/18 Exam# [id number] Ordering Dr: Kristen Ohara MD STUDY: CT [...] Stephan Sood MD at 14:44 EST Tel [phone], Service support , CC: Kristen Ohara MD; Will Dietz MD Shank Breaker: Signed CBC W/DIFF, AUTOMATED Collected: 04/09/2018 Status: F Source: [place] 1:00 PM [facility] REPOSITORY TYPE CODE TESTS RESULT OUT [...] Lymph 2.14 Performed By: #### L100.0100 #### [facility] [address] [place], [place], [address] COMPREHENSIVE METABOLIC Collected: 04/09/2018 Status: F Source: [facility] 1:00 PM [facility] REPOSITORY TYPE CODE TESTS RESULT OUT [...] 10 Performed By: #### L500.4050, L501.2450 #### [facility] [address] [place], [address] LIPASE Collected: 04/09/2018 Status: F Source: [place] 1:00 PM [facility] REPOSITORY TYPE CODE TESTS RESULT OUT OF RANGE REFERENCE UNITS LAB L501.2450 73-393 U/L Normal LIPASE 134 Performed By: #### L500.4050, L501.2450 #### [facility] [address] [place], [address] ,SERUM,HCG QUALI. Collected: Status: F Source: [place] 04/09/2018 1:00 PM [facility] REPOSITORY TYPE CODE TESTS RESULT OUT OF REFERENCE UNITS RANGE LAB L700.6700 =>Qualitative mIU/mL Normal HCG Qual < 1 triggr LAB L700.7000 0-9 Nonpreg Negative Normal HCGSQUAL NEGATIVE Performed By: #### L700.6800 #### [facility] [address] [place], [address] PROGRESS Observed: 04/04/2018 Status: COMPLETED Source: [place] 4:08 PM [facility] REPOSITORY HNO ID: [id number] Author: Will Dietz Service: (none) Author Type: [...] soft. Has not contacted Dr. Diaz from [facility] who did this since not sure [...] (diabetes mellitus), secondary, uncontrolled, w/renal complications ([facility]) 12/05/2017 - Dysthymic disorder Depression (non-psychotic), [facility] - History of kidney stones 01/04/2016 - History of recurrent UTIs 11/28/2011 - Hydronephrosis, right 01/04/2016 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 - Lumbago 02/12/2015 - Migraine without aura and without status migrainosus, not intractable 10/18/2016 - Miscarriage - Morbid obesity ([facility]) 02/12/2015 - Muscle weakness of left lower extremity 08/07/2013 - Neck pain 05/02/2013 - Neurogenic bladder 02/12/2015 - Neurogenic bowel 01/06/2016 - Neuropathy ([facility]) 02/12/2015 post back surgery with secondary infection. Seeing Dr. Gregg - Numbness and tingling of left arm and leg 08/07/2013 - Panic attacks - Paroxysmal SVT (supraventricular tachycardia) ([facility]) 07/03/2017 Per 48 Hr event monitor 06/30/2017 [...] mouth as needed. Blood-Glucose Meter (ACCU-CHEK ANISH[place] [facility] [place] kit. 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 Has not contacted Dr. Diaz from [facility] who did this since not sure [...] 12/05/2017 - Dysthymic disorder Depression (non-psychotic), [facility] - History of kidney stones 01/04/2016 [...] - Neurogenic bowel 01/06/2016 - Neuropathy ([facility]) 02/12/2015 post back surgery with secondary infection. Seeing Dr. Gregg - Numbness and tingling of left arm and leg 08/07/2013 - Panic attacks - Paroxysmal SVT (supraventricular tachycardia) ([facility]) 07/03/2017 Per 48 Hr event monitor 06/30/2017 [...] mouth as needed. Blood-Glucose Meter (ACCU-CHEK ANISH[place] [facility] [place] [facility] [place] kit. 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 Referring Provider: WILL DIETZ [[id number]] Allergies As of Date: 04/04/2018 Noted Allergy [...] abdominal location [R10.9] Order(s):CT ABD/PEL W IVCON [1830425] Order #: [id number] FUTURE iv contrast (will be provided with [...] EachRfl: 0 [place] CREATININE [SQWCRET] Order #: [id number] FUTURE busPIRone (BUSPAR) 15 mg tabletTake 1/2 [...] lower extr*INVALID FOR*01/06/2016 Priority: D Lipomeningocele ([facility]) [Q05.9] INVALID FOR* Priority: B Lumbago [M54.5] INVALID FOR* Priority: M Neuropathy ([facility]) [G62.9] INVALID FOR* Priority: A More... Morbid obesity ([facility]) [E66.01] INVALID FOR* Priority: B Chronic pain [G89.29] INVALID FOR* Priority: M Neurogenic bladder [N31.9] INVALID FOR* Priority: B Hydronephrosis, right [N13.30] INVALID FOR* Priority: C History of kidney stones [Z87.442] INVALID FOR* Priority: C Spina bifida ([facility]) [Q05.9] INVALID FOR* Priority: B More... Neurogenic bowel [K59.2] INVALID FOR* Priority: B Primary insomnia [F51.01] INVALID FOR* Priority: A Type 2 diabetes mellitus with proteinuria ([facility])*INVALID FOR* Priority: A Pyelonephritis [N12] INVALID FOR* Diabetic eye exam ([facility]) [Z01.00, E11.9] INVALID FOR* Priority: A More... Migraine without aura and without status migrai*INVALID FOR*02/28/2018 Priority: A Type 2 diabetes mellitus with albuminuria ([facility])*INVALID FOR* Priority: A Well adult exam [Z00.00] [...] 04/04/18 ANDREW Observed: 03/27/2018 Status: COMPLETED Source: [place] 12:00 AM [facility] REPOSITORY Telephone (MEWO) UVALDODEBBY ([id number]) 1980 F Date Time Provider Department 03/27/18 [...] lower extr*INVALID FOR*01/06/2016 Priority: D Lipomeningocele ([facility]) [Q05.9] INVALID FOR* Priority: B Lumbago [M54.5] INVALID FOR* Priority: M Neuropathy ([facility]) [G62.9] INVALID FOR* Priority: A More... Morbid obesity ([facility]) [E66.01] INVALID FOR* Priority: B Chronic pain [G89.29] INVALID FOR* Priority: M Neurogenic bladder [N31.9] INVALID FOR* Priority: B Hydronephrosis, right [N13.30] INVALID FOR* Priority: C History of kidney stones [Z87.442] INVALID FOR* Priority: C Spina bifida ([facility]) [Q05.9] INVALID FOR* Priority: B More... Neurogenic bowel [K59.2] INVALID FOR* Priority: B Primary insomnia [F51.01] INVALID FOR* Priority: A Type 2 diabetes mellitus with proteinuria ([facility])*INVALID FOR* Priority: A Pyelonephritis [N12] INVALID FOR* Diabetic eye exam ([facility]) [Z01.00, E11.9] INVALID FOR* Priority: A More... [...] Status: F Source: [place] CONTRAST 7:13 AM [facility] REPOSITORY [facility] Imaging Services [address] [place] [address] Spine Lumbar W/WO Contrast MR#: [id number] Acct: [id number] Name: DEBBY BAILON Rep #: [id number] : 1980 F 37 From: Jessie Patel MD PCP: Will Dietz MD Status: REG CLI Study: Spine Lumbar W/WO Contrast Date of Exam: 03/23/18 Exam# [id number] Ordering Dr: Celine Fung STUDY: MRI LUMBAR [...] , CC: MARIO Fung; Will Dietz MD Shank Breaker: Signed EMERGENCY DEPARTMENT Observed: 03/23/2018 Status: F Source: [place] SUMMARY 12:36 AM [facility] REPOSITORY [facility] Medical Records Department [address] [place] [address] Emergency Department Summary 03/22/18 2340 MR#: [id number] Acct: [id number] Name: DEBBY BAILON Rep #: [id number] : 1980 37 From: Kristen Ohara MD [...] knee sprain This note was generated with [employer] dictation software. It may contain incorrect words, [...] your Primary Care Provider. Call [facility] ([phone]) or report to the closest Emergency Room. Call 911 if necessary. 03/23/18 0036 <Electronically signed by Kristen Ohara MD> Date Kristen Ohara MD Cosigner Signature (If Indicated): Date CC: Will Dietz MD DISCHARGE INSTRUCTION Observed: 03/22/2018 Status: F Source: [place] 11:40 PM [facility] REPOSITORY [facility] Medical Records Department [address] [place] [address] Discharge Instruction 03/22/18 2339 MR#: [id number] Acct: [id number] Name: DEBBY BAILON Rep #: [id number] : 1980 37 From: Kristen Ohara MD [...] your Primary Care Provider. Call [facility] ([phone]) or report to the closest Emergency Room. Call 911 if necessary. 03/22/18 2340 <Electronically signed by Kristen Ohara MD> Date Kristen Ohara MD Cosigner Signature (If Indicated): Date CC: Will Dietz MD KNEE 4 OR MORE Observed: 03/22/2018 Status: F Source: [place] VIEWS 11:01 PM [facility] REPOSITORY [facility] Imaging Services [address] [place] [address] Knee 4 or More Views MR#: [id number] Acct: [id number] Name: DEBBY BAILON Rep #: [id number] : 1980 F 37 From: Jessie Patel MD PCP: Will Dietz MD Status: REG ER Study: Knee 4 or More Views Date of Exam: 03/22/18 Exam# [id number] Ordering Dr: Kristen Ohara MD STUDY: X-RAY [...] CC: Kristen Ohara MD; Will Dietz MD Shank Breaker: Signed 12 LEAD ELECTROCARDIOGRAM Observed: 03/21/2018 Status: F Source: [place] 1:31 PM [facility] REPOSITORY [facility] Cardiovascular Services [address] [place] [address] 12 Lead EKG 03/19/18 2304 MR#: [id number] Acct: [id number] Name: DEBBY BAILON Rep #: [id number] : 1980 37 From: Jayson Alvarez MD [...] Normal ECG Confirmed by STEFANI FITZGERALD, JAYSON ([id number]), editor managing newspaper LYLA HAY ([id number]) on 03/21/2018 1:31:31 PM Referred By: ISAURA Confirmed By:JAYSON ALVAREZ MD 03/21/18 1331 Date Jayson Alvarez MD CC: Kristen Ohara MD; Will Dietz MD Signed EMERGENCY DEPARTMENT Observed: 03/20/2018 Status: F Source: [place] SUMMARY 4:46 AM [facility] Medical Records Department [address] [place] [address] Emergency Department Summary 03/19/18 2258 MR#: [id number] Acct: [id number] Name: DEBBY BAILON Rep #: [id number] : 1980 37 From: Kristen Ohara MD [...] chest pain This note was generated with [employer] dictation software. It may contain incorrect words, [...] problems, contact your Primary Care Provider. Call [facility] ([phone]) or report to the closest Emergency Room. Call 911 if necessary. 03/20/18 0446 <Electronically signed by Kristen Ohara MD> Date Kristen Ohara MD Cosigner Signature (If Indicated): Date CC: Will Dietz MD DISCHARGE INSTRUCTION Observed: 03/20/2018 Status: F Source: [place] 1:59 AM [facility] Medical Records Department [address] [place] [address] Discharge Instruction 03/20/188 MR#: [id number] Acct: [id number] Name: DEBBY BAILON Rep #: [id number] : 1980 37 From: Kristen Ohara MD [...] your Primary Care Provider. Call [facility] ([phone]) or report to the closest Emergency Room. Call 911 if necessary. 03/20/189 <Electronically signed by Kristen Ohara MD> Date Kristen Ohara MD Cosigner Signature (If Indicated): Date CC: Will Dietz MD DISCHARGE INSTRUCTION Observed: 03/20/2018 Status: F Source: [place] 1:56 AM [facility] Medical Records Department [address] [place] [address] Discharge Instruction 03/20/185 MR#: [id number] Acct: [id number] Name: DEBBY BAILON Rep #: [id number] : 1980 37 From: Kristen Ohara MD [...] problems, contact your Primary Care Provider. Call [facility] ([phone]) or report to the closest Emergency Room. Call 911 if necessary. 03/20/18 0156 <Electronically signed by Kristen Ohara MD> Date Kristen Ohara MD Cosigner Signature (If Indicated): Date CC: Will Dietz MD CTA CHEST W/WO Observed: 03/20/2018 Status: F Source: [place] CONTRAST 12:16 AM [facility] REPOSITORY [facility] Imaging Services [address] [place] [address] CTA Chest W/WO Contrast MR#: [id number] Acct: [id number] Name: DEBBY BAILON Rep #: [id number] : 1980 F 37 From: Dylan Quintana MD PCP: Will Dietz MD Status: REG ER Study: CTA Chest W/WO Contrast Date of Exam: 03/20/18 Exam# [id number] Ordering Dr: Kristen Ohara MD STUDY: CTA [...] CC: Kristen Ohara MD; Will Dietz MD Shank Breaker: Signed CBC W/DIFF, AUTOMATED Collected: 03/19/2018 Status: F Source: [place] 11:20 PM [facility] REPOSITORY TYPE CODE TESTS RESULT OUT [...] Lymph 2.64 Performed By: #### L100.0100 #### [facility] [address] [place], [place], [id number] BASIC METABOLIC Collected: 03/19/2018 Status: F Source: [place] PROFILE (BMP) 11:20 PM [facility] REPOSITORY TYPE CODE TESTS RESULT OUT [...] 8 Performed By: #### L500.2500, L501.4010 #### [facility] [address] [place], [address] TROPONIN-I Collected: 03/19/2018 Status: F Source: [place] 11:20 PM [facility] REPOSITORY TYPE CODE TESTS RESULT OUT OF RANGE REFERENCE UNITS LAB L501.4010 <0.045 ng/mL Normal < 0.015 TROPONIN-I Result Comment: TROPONIN-I EXPECTED VALUES <0.045 Negative 0.045 - 0.590 Consistent with Cardiac Damage > OR = 0.600 Critical Value Not every elevated troponin is indicative of DE. These values should be used with clinical judgement in examining the patient's clinical picture for diagnosis. To establish a diagnosis of DE versus myocardial injury, there must be a demonstrated rise and/or fall in the troponin values, in addition to ischemic symptoms, EKG changes, new regional wall motion abnormality, and/or angiographical evidence. PLEASE NOTE: REFERENCE RANGES EDITED 18 Performed By: #### L500.2500, L501.4010 #### [facility] [address] [place], [address] D-DIMER QUANTITATIVE Collected: 03/19/2018 Status: F Source: [place] (DVT/PE) 11:20 PM [facility] REPOSITORY TYPE CODE TESTS RESULT OUT OF RANGE REFERENCE UNITS LAB L300.8000 0.27-0.49 FEU/ug/m High alert D-DIMER 0.55 QUANT Result Comment: CRITICAL VALUE VERIFIED. CALLED TO 03/19/18 2348 Molly Jose. RESULTS READ BACK BY SAME . D-Dimer ELEVATED (>0.49): Additional studies and clinical assessments are indicated to conclude diagnosis of: Deep Vein Thrombosis (DVT) or Pulmonary Embolism (PE) Performed By: #### L300.8000 #### [facility] [address] [place], [address] ,SERUM,HCG QUALI. Collected: Status: F Source: [place] 03/19/2018 11:20 PM [facility] REPOSITORY TYPE CODE TESTS RESULT OUT OF REFERENCE UNITS RANGE LAB L700.6700 =>Qualitative mIU/mL Normal HCG Qual < 1 triggr LAB L700.7000 0-9 Nonpreg Negative Normal HCGSQUAL NEGATIVE Performed By: #### L700.6800 #### [facility] [address] [place], [address] URINALYSIS, COMPLETE Collected: 03/19/2018 Status: F Source: [place] 10:55 PM [facility] REPOSITORY Order Comment: How was Urine Obtained? [...] URINE SEEN Performed By: #### L400.0001 #### [facility] [address] [facility] [place], [address] CHEST 1 VIEW Observed: 03/19/2018 Status: F Source: [place] (PORTABLE) 10:52 PM [facility] REPOSITORY [facility] Imaging Services [address] [place] [address] Chest 1 View (Portable) MR#: [id number] Acct: [id number] Name: DEBBY BAILON Rep #: [id number] : 1980 F 37 From: Jessie Patel MD PCP: Will Dietz MD Status: [facility] ER Study: Chest 1 View (Portable) Date of Exam: 03/19/18 Exam# [id number] Ordering Dr: Kristen Ohara MD STUDY: X-RAY [...] CC: Kristen Ohara MD; Will Dietz MD Shank Breaker: Signed ABDOMEN/PELVIS WITHOUT Observed: 03/19/2018 Status: F Source: [place] CONT 10:52 PM [facility] REPOSITORY [facility] Imaging Services [address] [place] [address] Abdomen/Pelvis without Cont MR#: [id number] Acct: [id number] Name: DEBBY BAILON Rep #: [id number] : 1980 F 37 From: Dylan Quintana MD PCP: Will Dietz MD Status: REG ER Study: Abdomen/Pelvis without Cont Date of Exam: 03/19/18 Exam# [id number] Ordering Dr: Kristen Ohara MD STUDY: CT [...] CC: Kristen Ohara MD; Will Dietz MD Shank Breaker: Signed NM CARDIAC PERF Observed: 03/15/2018 Status: F Source: [place] STRESS/PHARM 11:38 AM [facility] REPOSITORY * * *Final Report* * * [...] 60 minutes later. See administered doses below. [facility] Date of service: 03/15/2018 7:22:30 AM [...] cavity size is unchanged with stress. Final Shank Breaker: RADHA Transcribe Date/Time: Mar 15 2018 7:22A Dictated by : JOESPH CALLOWAY MD This examination was interpreted and the report reviewed and electronically signed by: JOESPH CALLOWAY MD on Mar 15 2018 12:37PM EST [id number] Observed: 03/15/2018 Status: COMPLETED Source: [place] 10:22 AM [facility] REPOSITORY [facility] ID: [id number] Author: Renata Lubin Service: (none) Author Type: [...] STATUS: Discontinued PROCEDURE TYPE: NM Stress: 16mCi [id number] was administered IV for Rest Imaging at [...] safety can be found using this link: [email or web address] SIGNATURE: [employer] PATIENT NAME: Debby Bailon DATE: March 15, 2018 TIME: 10:23 AM PAGER/CONTACT #: PROGRESS Observed: 03/15/2018 Status: COMPLETED Source: [place] 9:58 AM [facility] REPOSITORY [facility] ID: [id number] Author: Isis Alaniz (Rcep) Service: (none) 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 T. DAGO Fall CNOV Observed: 03/15/2018 Status: COMPLETED Source: [place] 9:00 AM [facility] REPOSITORY Office Visit (CAWSTR) UVALDODEBBY ([id number]) 1980 F Date Time Provider Department 10/18/18 9:00 AM RAMANA ALANIZLENNOX) NENAWSTR During your visit today, we recorded the following information about you: DAGO Wallace 03/15/2018 9:59 AM Signed Preliminary report complete; results under imaging tab. DAGO Wallace Referring Provider: WILL DIETZ [[id number]] Allergies As of Date: 03/15/2018 Noted Allergy Reaction MUSHROOM 06/10/2016 10 - Anaphylaxis PEANUTS 06/10/2016 10 - Anaphylaxis MRI CONTRAST (GADOLINIUM-CONTAINI*01/03/2017 8 - GI Upset Date Reviewed: 03/07/2018 Reviewed by: Romel) Ronaldo - Fully Assessed Visit Diagnosis:Dyspnea on exertion [R06.09] Order(s):NM CARDIAC PERF STRESS/PHARM [[id number]] Order #: [id number] Prescriptions as of 03/15/2018 Sig: PREGABALIN 25 [...] lower extr*INVALID FOR*01/06/2016 Priority: D Lipomeningocele ([facility]) [Q05.9] INVALID FOR* Priority: B Lumbago [M54.5] INVALID FOR* Priority: M Neuropathy ([facility]) [G62.9] INVALID FOR* Priority: A More... Morbid obesity ([facility]) [E66.01] INVALID FOR* Priority: B Chronic pain [G89.29] INVALID FOR* Priority: M Neurogenic bladder [N31.9] INVALID FOR* Priority: B Hydronephrosis, right [N13.30] INVALID FOR* Priority: C History of kidney stones [Z87.442] INVALID FOR* Priority: C Spina bifida ([facility]) [Q05.9] INVALID FOR* Priority: B More... Neurogenic bowel [K59.2] INVALID FOR* Priority: B Primary insomnia [F51.01] INVALID FOR* Priority: A Type 2 diabetes mellitus with proteinuria ([facility])*INVALID FOR* Priority: A Pyelonephritis [N12] INVALID FOR* Diabetic eye exam ([facility]) [Z01.00, E11.9] INVALID FOR* Priority: A More... Migraine without aura and without status migrai*INVALID FOR*02/28/2018 Priority: A Type 2 diabetes mellitus with albuminuria ([facility])*INVALID FOR* Priority: A Well adult exam [Z00.00] [...] 03/15/18 CNNURSE Observed: 03/15/2018 Status: COMPLETED Source: [place] 9:00 AM [facility] REPOSITORY Nurse Visit (CAWSTR) DEBBY BAILON ([id number]) 1980 F Date Time Provider Department 03/15/18 9:00 AM NURSE CARD ADMIN [facility] CAWSTR During your visit today, we recorded the following information about you: Marycruz Leroy RN 03/15/2018 11:00 AM Signed lexiscan 0.4mg/5ml given over 10 second IV push. Lot number [id number], exp date 03-07-2021. Patient tolerated injection well. Marycruz Leroy RN Referring Provider: WILL DIETZ [[id number]] Allergies As of Date: 03/15/2018 Noted Allergy Reaction MUSHROOM 06/10/2016 10 - Anaphylaxis PEANUTS 06/10/2016 10 - Anaphylaxis MRI CONTRAST (GADOLINIUM-CONTAINI*01/03/2017 8 - GI Upset Date Reviewed: 03/07/2018 Reviewed by: Romel) Ronaldo - Fully Assessed Primary Visit Diagnosis:Mixed hyperlipidemia [E78.2] Other Visit Diagnosis:Paroxysmal SVT (supraventricular tachycardia) ([facility]) [I47.1] Prescriptions as of 03/15/2018 Sig: PREGABALIN [...] lower extr*INVALID FOR*01/06/2016 Priority: D Lipomeningocele ([facility]) [Q05.9] INVALID FOR* Priority: B Lumbago [M54.5] INVALID FOR* Priority: M Neuropathy ([facility]) [G62.9] INVALID FOR* Priority: A More... Morbid obesity ([facility]) [E66.01] INVALID FOR* Priority: B Chronic pain [G89.29] INVALID FOR* Priority: M Neurogenic bladder [N31.9] INVALID FOR* Priority: B Hydronephrosis, right [N13.30] INVALID FOR* Priority: C History of kidney stones [Z87.442] INVALID FOR* Priority: C Spina bifida ([facility]) [Q05.9] INVALID FOR* Priority: B More... Neurogenic bowel [K59.2] INVALID FOR* Priority: B Primary insomnia [F51.01] INVALID FOR* Priority: A Type 2 diabetes mellitus with proteinuria ([facility])*INVALID FOR* Priority: A Pyelonephritis [N12] INVALID FOR* Diabetic eye exam ([facility]) [Z01.00, E11.9] INVALID FOR* Priority: A More... Migraine without aura and without status migrai*INVALID FOR*02/28/2018 Priority: A Type 2 diabetes mellitus with albuminuria ([facility])*INVALID FOR* Priority: A Well adult exam [Z00.00] [...] EMERGENCY DEPARTMENT Observed: 03/14/2018 Status: F Source: [place] SUMMARY 11:19 PM [facility] REPOSITORY [facility] Medical Records Department [address] [place] [address] Emergency Department Summary 03/14/18 1518 MR#: [id number] Acct: [id number] Name: DEBBY BAILON Rep #: [id number] : 1980 37 From: Oni Dunlap MD PCP: Will Dietz MD Status: DEP ER - ER Visit Summary Date of Service: 03/14/18 Chief Complaint: Dysuria History of Present Illness: The patient is a [address] Dietz and her urologist is Dr. Sears in [place]. She has a history of spina bifida [...] condition. Impression: 1. UTI. 2. Hyperglycemia with yln-qgqhunq-lswkdjqjp diabetes mellitus. 3. Spina bifida with neurogenic bladder. This note was generated with [employer] dictation software. It may contain incorrect words, [...] problems, contact your Primary Care Provider. Call [facility] ([phone]) or report to the closest Emergency Room. Call 911 if necessary. 03/14/18 3097 <Electronically signed by Oni Dunlap MD> Date Oni Dunlap MD Cosigner Signature (If Indicated): Date CC: Will Dietz MD CBC W/DIFF, AUTOMATED Collected: 03/14/2018 Status: F Source: [place] 3:30 PM [facility] REPOSITORY TYPE CODE TESTS RESULT OUT [...] Lymph 2.17 Performed By: #### L100.0100 #### [facility] [address] [facility] [address] [place], [place], [address] BASIC METABOLIC Collected: 03/14/2018 Status: F Source: [place] PROFILE (BMP) 3:30 PM [facility] REPOSITORY TYPE CODE TESTS RESULT OUT [...] GAP 5 Performed By: #### L500.2500 #### [facility] [address] [facility] [address] [place], [place], [address] ,SERUM,HCG QUALI. Collected: Status: F Source: [place] 03/14/2018 3:30 PM [facility] REPOSITORY TYPE CODE TESTS RESULT OUT OF REFERENCE UNITS RANGE LAB L700.7000 0-9 Nonpreg Negative Normal HCGSQUAL NEGATIVE LAB L700.6700 =>Qualitative mIU/mL Normal HCG Qual < 1 triggr Performed By: #### L700.6800 #### [facility] [address] [facility] [place], [place], [address] URINALYSIS, COMPLETE Collected: 03/14/2018 Status: F Source: [place] 3:25 PM [facility] REPOSITORY Order Comment: Order Date: 03/14/18 How [...] MUCUS, URINE Performed By: #### L400.0001 #### [facility] [address] [facility] [place], [address] Observed: 03/14/2018 Status: F Source: [place] CULTURE, URINE 3:25 PM [facility] REPOSITORY Order Date: 03/14/18 Urine Culture ORGANISM 1: Mixed Gram Pos AND Gram Neg Org [place] Count 25,000-50,000 MIX CULTURE Mixed contaminants. Submit a new specimen if indicated. Performed By: #### M100.0650 #### [facility] [facility] [place], [address] CNOV Observed: 03/07/2018 Status: COMPLETED Source: [place] 2:20 PM [facility] REPOSITORY Office Visit (FAMPWS) DEBBY BAILON ([id number]) 1980 F Date Time Provider Department 03/07/18 [...] 12/05/2017 - Dysthymic disorder Depression (non-psychotic), [facility] - History of kidney stones 01/04/2016 [...] - Neurogenic bowel 01/06/2016 - Neuropathy ([facility]) 02/12/2015 post back surgery with secondary infection. Seeing Dr. Gregg - Numbness and tingling of left arm and leg 08/07/2013 - Panic attacks - Paroxysmal SVT (supraventricular tachycardia) ([facility]) 07/03/2017 Per 48 Hr event monitor 06/30/2017 [...] mouth as needed. Blood-Glucose Meter (ACCU-CHEK ANISH[place] [facility] [place] 1 meter kit. Dx: Other DM [...] and leg [R20.0, R20.2] Order(s):WALKER - FOLDING [[id number]] Order #: [id number] Prescriptions as of 03/07/2018 Sig: PREGABALIN 25 [...] lower extr*INVALID FOR*01/06/2016 Priority: D Lipomeningocele ([facility]) [Q05.9] INVALID FOR* Priority: B Lumbago [M54.5] INVALID FOR* Priority: M Neuropathy ([facility]) [G62.9] INVALID FOR* Priority: A More... Morbid obesity ([facility]) [E66.01] INVALID FOR* Priority: B Chronic pain [G89.29] INVALID FOR* Priority: M Neurogenic bladder [N31.9] INVALID FOR* Priority: B Hydronephrosis, right [N13.30] INVALID FOR* Priority: C History of kidney stones [Z87.442] INVALID FOR* Priority: C Spina bifida ([facility]) [Q05.9] INVALID FOR* Priority: B More... Neurogenic bowel [K59.2] INVALID FOR* Priority: B Primary insomnia [F51.01] INVALID FOR* Priority: A Type 2 diabetes mellitus with proteinuria ([facility])*INVALID FOR* Priority: A Pyelonephritis [N12] INVALID FOR* Diabetic eye exam ([facility]) [Z01.00, E11.9] INVALID FOR* Priority: A More... Migraine without aura and without status migrai*INVALID FOR*02/28/2018 Priority: A Type 2 diabetes mellitus with albuminuria ([facility])*INVALID FOR* Priority: A Well adult exam [Z00.00] [...] 03/07/18 PROGRESS Observed: 03/07/2018 Status: COMPLETED Source: [place] 2:08 PM [facility] REPOSITORY O ID: [id number] Author: Myles Higgins Service: (none) Author Type: Physician [employer] Type: Progress Notes Filed: 03/07/2018 3:03 PM [...] 12/05/2017 - Dysthymic disorder Depression (non-psychotic), [facility] - History of kidney stones 01/04/2016 [...] - Neurogenic bowel 01/06/2016 - Neuropathy ([facility]) 02/12/2015 post back surgery with secondary infection. Seeing Dr. Gregg - Numbness and tingling of left arm and leg 08/07/2013 - Panic attacks - Paroxysmal SVT (supraventricular tachycardia) ([facility]) 07/03/2017 Per 48 Hr event monitor 06/30/2017 - Primary insomnia 02/17/2016 - Spina bifida (HCC) 01/06/2016 - Thyroid cyst 01/01/2018 Complex right sided cysts. US 12/2017, biopsy per Dr. Josue 01/23/2018 benign. Repeat US in a year. - Type 2 diabetes mellitus with albuminuria ([facility]) 10/18/2016 - Type 2 diabetes mellitus with proteinuria ([facility]) 02/19/2016 - Ulcer of left foot ([facility]) 02/21/2017 - Ventral hernia without obstruction or [...] mouth as needed. Blood-Glucose Meter (ACCU-CHEK ANISH[place] [facility] [place]ense 1 meter kit. 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 He will brain picker a new four-point walker. Discussed using Tylenol for concussion treatment. Concussion precautions discussed. She does have a follow-up with her neurologist on the . She will keep that appointment. She declined any medications in the ED. Treatment Plan: [] Disposition: Discharge Impression: 1. Concussion without loss of consciousness 2. Multiple falls 3. History of spinal bifida This note was generated with [employer] dictation software. It may contain incorrect words, [...] your Primary Care Provider. Call [facility] ([phone]) or report to the closest Emergency Room. Call 911 if necessary. 03/07/18 0153 <Electronically signed by Arnold Brice> Date Arnold Brice Cosigner Signature (If Indicated): Date CC: Will Dietz MD BRAIN/HEAD WITHOUT Observed: 03/07/2018 Status: F Source: [place] CONTRAST 12:36 AM [facility] REPOSITORY [facility] Imaging Services [address] [place] [address] Brain/Head without Contrast MR#: [id number] Acct: [id number] Name: DEBBY BAILON Rep #: [id number] : 1980 F 37 From: Dylan Quintana MD PCP: Will Dietz MD Status: REG ER Study: Brain/Head without Contrast Date of Exam: 03/07/18 Exam# [id number] Ordering Dr: Arnold Caban DO STUDY: CT [...] , CC: Will Dietz MD; Arnold Caban Shank Breaker: Signed SPINE CERVICAL Observed: 03/07/2018 Status: F Source: [place] WITHOUT CONTRAS 12:36 AM [facility] REPOSITORY [facility] Imaging Services [address] [place] [address] Spine Cervical without Contras MR#: [id number] Acct: [id number] Name: DEBBY BAILON Rep #: [id number] : 1980 F 37 From: Dylan Quintana MD PCP: Will Dietz MD Status: REG ER Study: Spine Cervical without Contras Date of Exam: 03/07/18 Exam# [id number] Ordering Dr: Arnold Caban DO STUDY: CT [...] , CC: Will Dietz MD; Arnold Caban Shank Breaker: Signed EMERGENCY DEPARTMENT Observed: 03/03/2018 Status: F Source: [place] SUMMARY 9:07 PM [facility] [facility] Medical Records Department [address] [place] [address] Emergency Department Summary 03/03/18 2101 MR#: [id number] Acct: [id number] Name: DEBBY BAILON Rep #: [id number] : 1980 37 From: Dre Deal MD [...] 2 diabetes This note was generated with [employer] dictation software. It may contain incorrect words, spelling, and punctuation that were not noted in review of the chart prior to signing ED Disposition - Plan for ED Patient: Disposition: Home or Assisted Living Chief Complaint: Numb/Ting Instructions: ED Contusion Back Prescriptions: Hydrocodone Bitart/Apap 5-325 [Paris 5MG-325MG] 1 tablet PO Q6H PRN PRN 3 Days #10 tablet PRN Reason: Pain Referrals: Will Dietz MD [Primary Care Provider] - Additional Instructions: Your prescription was electronically transmitted to [facility] preferred pharmacy. What to do if you have Problems For any increased pain, shortness of breath, bleeding, nausea or vomiting, chest pain, or any unexpected problems, contact your Primary Care Provider. Call [facility] ([phone]) or report to the closest Emergency Room. Call 911 if necessary. 03/03/182106 <Electronically signed by Dre Deal MD> Date Dre Deal MD Cosigner Signature (If Indicated): Date CC: Will Dietz MD URINALYSIS, COMPLETE Collected: 03/03/2018 Status: F Source: [place] 6:50 PM [facility] REPOSITORY Order Comment: How was Urine Obtained? ORE CRUSHER TO SPECIFY TYPE CODE TESTS RESULT OUT [...] URINE SEEN Performed By: #### L400.0001 #### [facility] [address] [place], [address] LUMBAR SPINE 2 OR 3 Observed: 03/03/2018 Status: F Source: [place] VIEWS 5:40 PM [facility] Imaging Services [address] [place] [address] Lumbar Spine 2 or 3 Views MR#: [id number] Acct: [id number] Name: DEBBY BAILON Rep #: [id number] : 1980 F 37 From: Malcolm Jaimes MD PCP: Will Dietz MD Status: REG ER Study: Lumbar Spine 2 or 3 Views Date of Exam: 03/03/18 Exam# [id number] Ordering Dr: Dre Deal MD STUDY: X-RAY [...] CC: Will Dietz MD; Dre Deal MD Shank Breaker: Signed ECG COMPLETE W Observed: 02/28/2018 Status: F Source: [place] INTERPRETATION 8:03 PM [facility] REPOSITORY NAME : DEBBY BAILON PID : [id number] : 1980 Gender : Female Race : ORD : [id number] Procedure Date : Feb 28 2018 20:03:55 Edit Date : Mar 02 2018 15:30:39 Diagnosis:NORMAL SINUS RHYTHM NORMAL ECG Confirmed by CELINE JUAREZ D.O. ([id number]) on 03/02/2018 3:30:30 PM Ventricular Rate : 76 BPM Atrial Rate : 76 BPM P-R Interval : 140 ms QRS Duration : 76 ms Q-T Interval : 400 ms QTC Calculation(Bezet) : 450 ms P [place] : 11 degrees R [place] : 22 degrees T [place] : 19 degrees Test Reason : Location : 185 : [facility] Overread By : CELINE JUAREZ D.O. Edited By : CELINE JUAREZ D.O. Referred By : WILL DIETZ Acquired by : DESTIN, PROGRESS Observed: 02/28/2018 Status: COMPLETED Source: [place] 7:19 PM [facility] REPOSITORY HNO ID: [id number] Author: Will Dietz Service: (none) Author Type: [...] 12/05/2017 - Dysthymic disorder Depression (non-psychotic), [facility] - History of kidney stones 01/04/2016 [...] 12/05/2017 - Dysthymic disorder Depression (non-psychotic), sees AD[facility]ISTR[facility] - History of kidney stones 01/04/2016 - History of recurrent UTIs 11/28/2011 - Hydronephrosis, right 01/04/2016 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 - Lumbago 02/12/2015 - Migraine without aura and without status migrainosus, not intractable 10/18/2016 - Miscarriage - Morbid obesity ([facility]) 02/12/2015 - Muscle weakness of left lower extremity 08/07/2013 - Neck pain 05/02/2013 - Neurogenic bladder 02/12/2015 - Neurogenic bowel 01/06/2016 - Neuropathy ([facility]) 02/12/2015 post back surgery with secondary infection. Seeing Dr. Gregg - Numbness and tingling of left arm and leg 08/07/2013 - Panic attacks - Paroxysmal SVT (supraventricular tachycardia) ([facility]) 07/03/2017 Per 48 Hr event monitor 06/30/2017 - Primary insomnia 02/17/2016 - Spina bifida ([facility]) 01/06/2016 - Thyroid cyst 01/01/2018 Complex right sided cysts. US 12/2017, biopsy per Dr. Josue 01/23/2018 benign. Repeat US in a year. - Type 2 diabetes mellitus with albuminuria ([facility]) 10/18/2016 - Type 2 diabetes mellitus with [...] to 7 days. Blood-Glucose Meter (ACCU-CHEK ANISH[place] [facility] [place] 1 meter kit. 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 - History of kidney stones 01/04/2016 [...] - Neurogenic bowel 01/06/2016 - Neuropathy ([facility]) 02/12/2015 post back surgery with secondary infection. Seeing Dr. Gregg - Numbness and tingling of left arm and leg 08/07/2013 - Panic attacks - Paroxysmal SVT (supraventricular tachycardia) ([facility]) 07/03/2017 Per 48 Hr event monitor 06/30/2017 [...] to 7 days. Blood-Glucose Meter (ACCU-CHEK ANISH[place] [facility] [place] 1 meter kit. 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 Referring Provider: WILL DIETZ [[id number]] Allergies As of Date: 02/28/2018 Noted Allergy [...] tabletRfl: 1 CONSULT TO AMBULATORY CLINIC PHARMACY [599669] Order #: [id number]: 1 NM CARDIAC PERF STRESS/PHARM [5430550] Order #: [id number] IV START - SPECIFY [3155240] Order #: [id number]: 1 IV DISCONTINUE [4237401] Order #: [id number]: 1 regadenoson (LEXISCAN) 0.4 mg/5 mL syrgInject 5 mL intravenously one time only for 1 dose. Give IV push over 10 seconds and follow with 5 ml of normal salineDisp: 5 mLRfl: 0 UA DIP B/O [[id number]] Order #: [id number] COMP METABOLIC PANEL [SQCMP] Order #: [id number] FUTURE HGB A1C [PIIVW6B] Order #: [id number] FUTURE ALBUMIN/CREAT RATIO RND UR [SQUACR] Order #: [id number] FUTURE LIPID PANEL, NONFASTING [SQLIPNF] Order #: [id number] FUTURE ECG COMPLETE W INTERPRETATION [ECG01] Order #: [id number] FUTURE Prescriptions as of 02/28/2018 Sig: ATORVASTATIN [...] EMERGENCY DEPARTMENT Observed: 02/26/2018 Status: F Source: [place] SUMMARY 2:47 AM [facility] REPOSITORY [facility] Medical Records Department [address] [place] [address] Emergency Department Summary 02/25/18 2249 MR#: [id number] Acct: [id number] Name: DEBBY BAILON Rep #: [id number] : 1980 37 From: Nemesio Sanderson DO [...] Somatoform disorder This note was generated with [employer] dictation software. It may contain incorrect words, [...] your Primary Care Provider. Call [facility] ([phone]) or report to the closest Emergency Room. Call 911 if necessary. 02/26/18 0247 <Electronically signed by Nemesio Sanderson DO> Date Nemesio Sanderson DO Cosigner Signature (If Indicated): Date CC: Will Dietz MD BASIC METABOLIC Collected: 02/25/2018 Status: F Source: [place] PROFILE (BMP) 10:40 PM [facility] REPOSITORY TYPE CODE TESTS RESULT OUT [...] GAP 7 Performed By: #### L500.2500 #### [facility] [address] [facility] [place], [address] 12 LEAD ELECTROCARDIOGRAM Observed: 02/21/2018 Status: F Source: [place] 8:36 AM [facility] REPOSITORY [facility] Cardiovascular Services [address] [place] [address] 12 Lead EKG 02/16/18 0940 MR#: [id number] Acct: [id number] Name: DEBBY BAILON Rep #: [id number] : 1980 37 From: Rojas Oates MD [...] Confirmed by ROJAS OATES MD ([id number]), editor managing newspaper LYLA HAY ([id number]) on 02/21/2018 8:35:57 AM Referred By: Celine Fung Confirmed By:ROJAS OATES MD 02/21/18 0835 Date Rojas Oates MD CC: Josue Shaw MD; Will Dietz MD Signed EMERGENCY DEPARTMENT Observed: 02/16/2018 Status: F Source: [place] SUMMARY 12:13 PM [facility] REPOSITORY [facility] Medical Records Department [address] [place] [address] Emergency Department Summary 02/16/18 1209 MR#: [id number] Acct: [id number] Name: DEBBY BAILON Rep #: [id number] : 1980 37 From: Patrice Shaw MD [...] to medication This note was generated with [employer] dictation software. It may contain incorrect words, [...] your Primary Care Provider. Call [facility] ([phone]) or report to the closest Emergency Room. Call 911 if necessary. 02/16/18 1213 <Electronically signed by Patrice Shaw MD> Date Patrice Shaw MD Cosigner Signature (If Indicated): Date CC: Will Dietz MD CHEST PA AND LATERAL Observed: 02/16/2018 Status: F Source: [place] 9:57 AM [facility] Imaging Services [address] [place] [address] Chest PA and Lateral MR#: [id number] Acct: [id number] Name: DEBBY BAILON Rep #: [id number] : 1980 F 37 From: Stephan Sood MD PCP: Will Dietz MD Status: REG ER Study: Chest PA and Lateral Date of Exam: 02/16/18 Exam# [id number] Ordering Dr: Patrice Shaw MD STUDY: X-RAY [...] Stephan Sood MD at 11:40 EDT Tel [phone], Service support , CC: Josue Shaw MD; Will Dietz MD Shank Breaker: Signed CBC W/DIFF, AUTOMATED Collected: 02/16/2018 Status: F Source: [place] 9:45 AM [facility] REPOSITORY TYPE CODE TESTS RESULT OUT [...] Lymph 1.80 Performed By: #### L100.0100 #### [facility] [address] [place], [place], [address] BASIC METABOLIC Collected: 02/16/2018 Status: F Source: [place] PROFILE ([facility]) 9:45 AM [facility] REPOSITORY TYPE CODE TESTS RESULT OUT [...] GAP 9 Performed By: #### L500.2500 #### [facility] [address] [place], [address] ,SERUM,HCG QUALI. Collected: Status: F Source: [place] 02/16/2018 9:45 AM [facility] REPOSITORY TYPE CODE TESTS RESULT OUT OF REFERENCE UNITS RANGE LAB L700.6700 =>Qualitative mIU/mL Normal HCG Qual < 1 triggr LAB L700.7000 0-9 Nonpreg Negative Normal HCGSQUAL NEGATIVE Performed By: #### L700.6800 #### [facility] [address] [place], [address] DISCHARGE INSTRUCTION Observed: 02/14/2018 Status: F Source: [place] 4:38 PM [facility] REPOSITORY [facility] Medical Records Department [address] [place] [address] Discharge Instruction 02/14/18 1637 MR#: [id number] Acct: [id number] Name: DEBBY BAILON Rep #: [id number] : 1980 37 From: Irvin Goldberg DO [...] your Primary Care Provider. Call [facility] ([phone]) or report to the closest Emergency Room. Call 911 if necessary. 02/14/18 1638 <Electronically signed by Irvin Goldberg DO> Date Irvin Goldberg DO Cosigner Signature (If Indicated): Date CC: Will Dietz MD EMERGENCY DEPARTMENT Observed: 02/14/2018 Status: F Source: [place] SUMMARY 4:37 PM [facility] REPOSITORY [facility] Medical Records Department [address] [place] [address] Emergency Department Summary 02/14/18 1632 MR#: [id number] Acct: [id number] Name: DEBBY BAILON Rep #: [id number] : 1980 37 From: Irvin Goldberg DO [...] rebound or rigidity, no peritoneal signs. Neuro httx-cknpmd-yhwy and heel mcdonald testing within normal limits, [...] [Headache-suspect migraine] This note was generated with [employer] dictation software. It may contain incorrect words, [...] problems, contact your Primary Care Provider. Call [facility] ([phone]) or report to the closest Emergency Room. Call 911 if necessary. 02/14/18 1353 <Electronically signed by Irvin Goldberg DO> Date Remus Ungur DO Cosigner Signature (If Indicated): Date CC: Will Dietz MD BRAIN/HEAD WITHOUT Observed: 02/14/2018 Status: F Source: [place] CONTRAST 3:19 PM [facility] REPOSITORY [facility] Imaging Services [address] [place] [address] Brain/Head without Contrast MR#: [id number] Acct: [id number] Name: DEBBY BAILON Rep #: [id number] : 1980 F 37 From: José Luis Birmingham DO PCP: Will Dietz MD Status: REG ER Study: Brain/Head without Contrast Date of Exam: 02/14/18 Exam# [id number] Ordering Dr: Irvin Goldberg DO STUDY: CT [...] Luis Birmingham DO at 16:26 EDT Tel [phone], Service support , CC: Will Dietz MD; Irvin Goldberg DO Shank Breaker: Signed URINALYSIS, COMPLETE Collected: 02/14/2018 Status: F Source: [place] 1:20 PM [facility] REPOSITORY Order Comment: Has pt arrived? Y [...] URINE SEEN Performed By: #### L400.0001 #### [facility] [address] [place], [place], [address] ,SERUM,HCG QUALI. Collected: Status: F Source: [place] 02/14/2018 1:20 PM [facility] REPOSITORY TYPE CODE TESTS RESULT OUT OF REFERENCE UNITS RANGE LAB L700.7000 0-9 Nonpreg Negative Normal HCGSQUAL NEGATIVE LAB L700.6700 =>Qualitative mIU/mL Normal HCG Qual < 1 triggr Performed By: #### L700.6800 #### [facility] [address] [place], [address] URINALYSIS WITH Collected: 02/13/2018 Status: F Source: [facility] 9:58 AM [facility] REPOSITORY TYPE CODE TESTS RESULT OUT OF RANGE REFERENCE UNITS LAB UCOL Yellow Color Yellow LAB [facility] Clear Clarity Clear LAB UGLUC Negative mg/dL Glucose, Abnormal Urine >=500 Alert LAB UBIL Negative Bilirubin, Urine Negative LAB UK[facility] Negative Ketones, Urine Negative LAB [facility] 1.005-1.030 Specific Rogers, Ur 1.009 LAB UHGB Negative Hemoglobin/Blood, Negative [...] Epithelial Cells Performed By: #### UAWMIC #### [facility] [address] [address] ALBUMIN/CREAT RATIO Collected: 02/13/2018 Status: F Source: [place] 9:58 AM [facility] REPOSITORY TYPE CODE TESTS RESULT OUT OF [...] 1995, 25:107) Performed By: #### UACR #### [facility] [address] [id number] HEMOGLOBIN A1C Collected: 02/13/2018 Status: F Source: [place] 9:42 AM [facility] REPOSITORY TYPE CODE TESTS RESULT OUT OF REFERENCE UNITS RANGE LAB HGBA1C 4.3-5.6 % High Hemoglobin A1c 8.3 LAB HBA0 mg/dL Est. Average Glucose 192 Result Comment: eAG: (Estimated average glucose) is a calculated value from HgbA1c and is sales representative leather goods of the average blood glucose level in the last 2-3 month period. Performed By: #### HBA1C, CMP, LIPB #### [facility] [address] [place], [place] [address] COMP METABOLIC PANEL Collected: 02/13/2018 Status: F Source: [place] 9:42 AM [facility] REPOSITORY TYPE CODE TESTS RESULT [...] mg/dL High Glucose 195 Result Comment: The Stateless Diabetes Association (ADA) provides guidance for cutoff [...] Standards of Medical Care in Diabetes 2016, Stateless Diabetes Association. Diabetes Care. 2016.39(Suppl 1). LAB [...] Performed By: #### HBA1C, CMP, LIPB #### [facility] [address] [place], [place] [address] LIPID PANEL, BASIC Collected: 02/13/2018 Status: F Source: [place] 9:42 AM [facility] REPOSITORY TYPE CODE TESTS RESULT [...] Desk Reference: National Heart, Lung, and Blood [place]. National Institutes of Health. 2001: NIH Publication No. 01-3305. 2. An International Atherosclerosis Society position paper: global recommendations for the management of dyslipidemia: executive summary, Atherosclerosis. 2014: 232(2):410-413. Performed By: #### HBA1C, CMP, LIPB #### [facility] [address] [place], [place] [address] INITAL EVALUATION (1) Observed: 02/07/2018 Status: F Source: [place] - PT 1:00 PM [facility] REPOSITORY [facility] [address] [place] [address]. [address] [place] [address] Fax REHABILITATION SERVICES INITIAL EVALUATION MR#: [id number] Acct: [id number] Name: DEBBY BAILON Rep #: [id number] : 1980 37 From: Scott Cho PT, [...] to be FAXED BACK to us at [phone] for Medicare purposes. Please let me know if there are questions or concerns regarding this plan of care. Physician Signature: Date: <Electronically signed by Scott Cho PT, ATC> 02/07/18 1300 CC: MARIO Fung; Will Dietz MD [facility] Signed For Medicare only, by signing this I certify the plan of care. Physicians Signature Date SURGERY VISIT REPORT Observed: 01/30/2018 Status: F Source: [place] 2:27 PM [facility] REPOSITORY [facility] [address] [place] [address] [address] [place] [address] OFFICE VISIT Date of Service: 01/30/18 MR#: [id number] Acct: [id number] Name: DEBBY BAILON Rep #: [id number] : 1980 Provider: Nemesio Josue MD Age/Sex: 37/F Location: [facility] Status: Signed Intake Intake Visit Reasons: 1 wk f/u FNA RT Thyroid Gland Division Human Resources Manager Required: No Is patient in pain?: No [...] EMERGENCY DEPARTMENT Observed: 01/30/2018 Status: F Source: [place] SUMMARY 1:41 PM [facility] REPOSITORY [facility] Medical Records Department [address] [place] [address] Emergency Department Summary 01/30/18 1338 MR#: [id number] Acct: [id number] Name: DEBBY BAILON Rep #: [id number] : 1980 37 From: Jayson Yost MD [...] Pelvic pain This note was generated with [employer] dictation software. It may contain incorrect words, [...] problems, contact your Primary Care Provider. Call [facility] ([phone]) or report to the closest Emergency Room. Call 911 if necessary. 01/30/18 1341 <Electronically signed by Jayson Yost MD> Date Jayson Vargasignanjum Signature (If Indicated): Date CC: Will Dietz MD CBC W/DIFF, AUTOMATED Collected: 01/30/2018 Status: F Source: [place] 11:44 AM [facility] REPOSITORY TYPE CODE TESTS RESULT OUT [...] Lymph 2.10 Performed By: #### L100.0100 #### [facility] [place], [address] COMPREHENSIVE METABOLIC Collected: 01/30/2018 Status: F Source: [place] MICHAUD 11:44 AM [facility] REPOSITORY TYPE CODE TESTS RESULT OUT [...] GAP 10 Performed By: #### L500.4050 #### [facility] [address] [facility] [place], [address] URINALYSIS, COMPLETE Collected: 01/30/2018 Status: F Source: [place] 11:35 AM [facility] REPOSITORY Order Comment: Order Date: 01/30/18 Has [...] URINE SEEN Performed By: #### L400.0001 #### [facility] [address] [place], [address] PROGRESS Observed: 01/30/2018 Status: COMPLETED Source: [place] 9:57 AM [facility] REPOSITORY HNO ID: [id number] Author: Abbe Naylor (Don) Monty Service: (none) [...] mouth as needed. Blood-Glucose Meter (ACCU-CHEK ANISH[place] [facility] [place] 1 meter kit. Dx: Other DM [...] thoracic - Dysthymic disorder Depression (non-psychotic), [facility] 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 - Lumbago 02/12/2015 - Migraine - Miscarriage - Morbid obesity (HCC) 02/12/2015 - Muscle weakness of left lower extremity 08/07/2013 - Neck pain 05/02/2013 - Neurogenic bladder 02/12/2015 - Neurogenic bladder - Neurogenic bowel 01/06/2016 - Neuropathy ([facility]) 02/12/2015 post back surgery with secondary infection. Seeing Dr. Gregg - Numbness and tingling of left arm and leg 08/07/2013 - Panic attacks - Recurrent UTI 11/28/2011 - Spina bifida (HCC) 01/06/2016 - Type 2 diabetes mellitus without complication ([facility]) 02/12/2015 - Urinary tract infection, site not [...] needing any further refills. Abbe Millan MSN TRUCK DRIVER HEAVY.PEPPER CNOV Observed: 01/30/2018 Status: COMPLETED Source: [place] 9:40 AM [facility] REPOSITORY Office Visit (FAMPWS) DEBBY BAILON ([id number]) 1980 F Date Time Provider Department 01/30/18 9:40 AM ABBE MILLAN (ADMINISTRATIVE LIBRARY ASSISTANT) FAMPWS During your visit today, we recorded the following information about you: Temperature Pulse Respiration Blood pressure 97.7 degrees 80/minute 20/minute 120/88 Weight 108 kg ROSEMARY Anand TRUCK DRIVER HEAVY.PEPPER 01/30/2018 10:13 AM Signed Chief Complaint Patient [...] mouth as needed. Blood-Glucose Meter (ACCU-CHEK ANISH) [facility] [place]pense 1 meter kit. Dx: Other DM [...] thoracic - Dysthymic disorder Depression (non-psychotic), [facility] 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 - Lumbago 02/12/2015 - Migraine - Miscarriage - Morbid obesity (HCC) 02/12/2015 - Muscle weakness of left lower extremity 08/07/2013 - Neck pain 05/02/2013 - Neurogenic bladder 02/12/2015 - Neurogenic bladder - Neurogenic bowel 01/06/2016 - Neuropathy ([facility]) 02/12/2015 post back surgery with secondary infection. Seeing Dr. 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 Abbe Millan, MSN TRUCK DRIVER HEAVY.CONE TREATER Referring Provider: ABBE MILLAN (ADMINISTRATIVE LIBRARY ASSISTANT) [[id number]] Allergies As of Date: 01/30/2018 Noted Allergy [...] Type 2 diabetes mellitus with proteinuria ([facility])*INVALID FOR* Priority: A Pyelonephritis [N12] INVALID FOR* Diabetic eye exam ([facility]) [Z01.00, E11.9] INVALID FOR* Priority: A More... Migraine without aura and without status migrai*INVALID FOR* Priority: A Type 2 diabetes mellitus with albuminuria ([facility])*INVALID FOR* Priority: A Well adult exam [Z00.00] INVALID FOR* Priority: E More... Ulcer of left foot ([facility]) [L97.529] INVALID FOR* Priority: M Paroxysmal SVT [...] VISIT REPORT Observed: 01/23/2018 Status: F Source: [place] 8:37 AM [facility] REPOSITORY [facility] [address] [place] [address] [address] [place] [address] OFFICE VISIT Date of Service: 01/23/18 MR#: [id number] Acct: [id number] Name: DEBBY BAILON Rep #: [id number] : 1980 Provider: Nemesio Josue MD Age/Sex: 37/F Location: [facility] Status: Signed Intake Intake Visit Reasons: FNA Rt Thyroid Gland Division Human Resources Manager Required: No Is patient in pain?: No [...] applied. The patient tolerated the procedure Alert Compressor Station Engineer Alert Billing: Yes FNA 21959 Thyroid Procedure Time Out Time Out Informed [...] Orders: Coding Level of Care Code Attention Compressor Station Engineer Diagnoses Uninodular goiter E04.1 Additional Codes FNA - Fine Needle Aspiration: 65940 Thyroid (29115) 01/23/18 0837 <Electronically signed by Nemesio Josue MD> Date Nemesio Josue MD Cosigner Signature: Date (if applicable) CC: [facility] (FLUID) Observed: 01/23/2018 Status: F Source: [place] 8:15 AM [facility] REPOSITORY Patient: DEBBY BAILON : 1980 (37/F) Acct Num: [id number] Phys: Nemesio Josue MD Unit Num: [id number] Loc: LABSPEC Specimen: [id number] Received: 01/23/18 - [...] Submitted for staining. / 01/23/18 TC:5 CPT: 98727, 03064, 99369 CYTOLOGY STUDY Slides are reviewed. DIAGNOSIS CYTOLOGY A. Fine needle aspiration, right thyroid nodule (cytospin and cell block): Consistent with benign cystic nodule. B. Fine needle aspiration, right thyroid nodule (smears): Adequate for evaluation. Benign, consistent with cystic colloid nodule. AM: 01/24/18 HEADER OPERATION: Ultrasound-guided fine needle aspiration right thyroid PRE-OP DIAGNOSIS: Uninodular goiter E04.1 TISSUE SUBMITTED: A Fluid in syringe right thyroid for cytology, B Fine needle aspiration, right thyroid (12 slides) Signed Zafar [place] 01/24/18 <signature on file> Performed By: #### PASPIG #### [facility] [address] [place] [address], [id number] SURGERY VISIT REPORT Observed: 01/22/2018 Status: F Source: [place] 8:27 [facility] REPOSITORY [facility] [address] [place] [address]. [address] [place] [address] OFFICE VISIT Date of Service: 01/18/18 MR#: [id number] Acct: [id number] Name: DEBBY BAILON Rep #: [id number] : 1980 Provider: Nemesio Josue MD Age/Sex: 37/F Location: [facility] Status: Signed Intake Vital Signs01/18/18 Height 5 ft 2.5 in 01/18/18 Weight: 235 lb 6 oz 01/18/18 Body Mass Index (BMI) 42.3 01/18/18 Blood Pressure 124/91 Intake Visit Reasons: Thryoid US [facility] 01/01 aware to bring disc Chief Complaint: abn thyroid US Division Human Resources Manager Required: No Is patient in pain?: No [...] had a thyroid ultrasound done at the [facility] on January 01, 2018. This showed on [...] person, oriented to place, oriented to time [facility] Head: normocephalic, atraumatic Ears: external ears [...] EMERGENCY DEPARTMENT Observed: 01/21/2018 Status: F Source: [place] SUMMARY 5:28 AM [facility] REPOSITORY [facility] Medical Records Department [address] [place] [address] Emergency Department Summary 01/21/18 0414 MR#: [id number] Acct: [id number] Name: DEBBY BAILON Rep #: [id number] : 1980 37 From: Nemesio Pro MD [...] 1. Dysuria This note was generated with [employer] dictation software. It may contain incorrect words, [...] problems, contact your Primary Care Provider. Call [facility] ([phone]) or report to the closest Emergency Room. Call 911 if necessary. 01/21/18 0528 <Electronically signed by Nemesio Pro MD> Date Nemesio Pro MD Cosigner Signature (If Indicated): Date CC: Will Dietz MD DISCHARGE INSTRUCTION Observed: 01/21/2018 Status: F Source: [place] 5:28 AM [facility] REPOSITORY [facility] Medical Records Department [address] [place] [address] Discharge Instruction 01/21/18 0416 MR#: [id number] Acct: [id number] Name: DEBBY BAILON Rep #: [id number] : 1980 37 From: Nemesio Pro MD [...] your Primary Care Provider. Call [facility] ([phone]) or report to the closest Emergency Room. Call 911 if necessary. 01/21/18 0528 <Electronically signed by Nemesio Pro MD> Date Nemesio Pro MD Cosigner Signature (If Indicated): Date CC: Will Dietz MD URINALYSIS, COMPLETE Collected: 01/21/2018 Status: F Source: [place] 2:20 AM [facility] REPOSITORY Order Comment: Order Date: 01/21/18 Has [...] URINE SEEN Performed By: #### L400.0001 #### [facility] [address] [place], [address] Observed: 01/21/2018 Status: F Source: [place] CULTURE, URINE 2:20 AM [facility] REPOSITORY Order Date: 01/21/18 Urine Culture Below infection level. ORGANISM 1: Mixed Gram Positive Organisms [place] Count 1000-10,000 Performed By: #### M100.0650 #### [facility] [address] [place], [address] CBC W/DIFF, AUTOMATED Collected: 01/21/2018 Status: F Source: [place] 2:07 AM [facility] REPOSITORY TYPE CODE TESTS RESULT OUT [...] Lymph 2.70 Performed By: #### L100.0100 #### [facility] [address] [place] [address]. [place], [address] BASIC METABOLIC Collected: 01/21/2018 Status: F Source: [place] PROFILE (BMP) 2:07 AM [facility] REPOSITORY TYPE CODE TESTS RESULT OUT [...] GAP 9 Performed By: #### L500.2500 #### [facility] [address] [facility] [place], [address] ,SERUM,HCG QUALI. Collected: Status: F Source: [place] 01/21/2018 2:07 AM [facility] REPOSITORY TYPE CODE TESTS RESULT OUT OF REFERENCE UNITS RANGE LAB L700.7000 0-9 Nonpreg Negative Normal HCGSQUAL NEGATIVE LAB L700.6700 =>Qualitative mIU/mL Normal HCG Qual < 1 triggr Performed By: #### L700.6800 #### [facility] [address] [facility] [place], [address] ABDOMEN/PELVIS WITHOUT Observed: 01/21/2018 Status: F Source: [place] CONT 2:03 AM [facility] REPOSITORY [facility] Imaging Services [address] [place] [address] Abdomen/Pelvis without Cont MR#: [id number] Acct: [id number] Name: DEBBY BAILON Rep #: [id number] : 1980 F 37 From: Sandra Hay MD PCP: Will Dietz MD Status: REG ER Study: Abdomen/Pelvis without Cont Date of Exam: 01/21/18 Exam# [id number] Ordering Dr: Nemesio Pro MD STUDY: CT [...] CC: Nemesio Pro MD; Will Dietz MD Shank Breaker: Signed PROGRESS Observed: 01/15/2018 Status: COMPLETED Source: [place] 1:45 PM [facility] OTHER [facility] REPOSITORY HNO ID: [id number] Author: Anne Christensen Service: (none) Author Type: [...] thoracic - Dysthymic disorder Depression (non-psychotic), [facility] 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 - Lumbago 02/12/2015 - Migraine - Miscarriage - Morbid obesity (HCC) 02/12/2015 - Muscle weakness of left lower extremity 08/07/2013 - Neck pain 05/02/2013 - Neurogenic bladder 02/12/2015 - Neurogenic bladder - Neurogenic bowel 01/06/2016 - Neuropathy ([facility]) 02/12/2015 post back surgery with secondary infection. Seeing Dr. 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 Blood-Glucose Meter [place]ACCU[place]CHEK ANISH[place] [facility] [place] 1 meter kit. Dx: Other DM [...] MD PROGRESS Observed: 01/08/2018 Status: COMPLETED Source: [place] 9:44 AM [facility] REPOSITORY O ID: [id number] Author: Abbe Naylor (Lay Health Advocate) Monty Service: (none) Author Type: Nurse Practitioner [...] with OTC cold and sinus med from [facility] without benefit. Other sx: chills, no documented [...] thoracic - Dysthymic disorder Depression (non-psychotic), [facility] 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 - Lumbago 02/12/2015 - Migraine - Miscarriage - Morbid obesity (HCC) 02/12/2015 - Muscle weakness of left lower extremity 08/07/2013 - Neck pain 05/02/2013 - Neurogenic bladder 02/12/2015 - Neurogenic bladder - Neurogenic bowel 01/06/2016 - Neuropathy ([facility]) 02/12/2015 post back surgery with secondary infection. Seeing Dr. Gregg - Numbness and tingling of left arm and leg 08/07/2013 - Panic attacks - Recurrent UTI 11/28/2011 - Spina bifida ([facility]) 01/06/2016 - Type 2 diabetes mellitus without complication ([facility]) 02/12/2015 - Urinary tract infection, site not [...] mouth as needed. Blood-Glucose Meter (ACCU-CHEK ANISH[place] [facility] [place] kit. Dx: Other DM [...] directed, ulcer of left 1st metatarsal, measurement: [id number], Dx: E11.621, L97.522 (Patient not taking: Reported on 10/05/2017 ) No current facility-administered medications on file prior to visit. 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 Social [...] MG CAPSULE (TAMPER RESISTANT) Abbe Millan, MSN TRUCK DRIVER HEAVY.CONE TREATER CNOV Observed: 01/08/2018 Status: COMPLETED Source: [place] 9:40 AM [facility] REPOSITORY Office Visit (FAMPWS) DEBBY BAILON ([id number]) 1980 F Date Time Provider Department 01/08/18 9:40 AM ABBE MILLAN (ADMINISTRATIVE LIBRARY ASSISTANT) FAMPWS During your visit today, we recorded the following information about you: Temperature Pulse Respiration Blood pressure 97.7 degrees 72/minute 18/minute 110/86 Weight 108.4 kg Abbe Millan, MSN TRUCK DRIVER HEAVY.CONE TREATER 01/08/2018 10:18 AM Signed Chief Complaint Patient [...] with OTC cold and sinus med from [facility] without benefit. Other sx: chills, no documented [...] thoracic - Dysthymic disorder Depression (non-psychotic), [facility] 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 - Lumbago 02/12/2015 - Migraine - Miscarriage - Morbid obesity (HCC) 02/12/2015 - Muscle weakness of left lower extremity 08/07/2013 - Neck pain 05/02/2013 - Neurogenic bladder 02/12/2015 - Neurogenic bladder - Neurogenic bowel 01/06/2016 - Neuropathy ([facility]) 02/12/2015 post back surgery with secondary infection. Seeing Dr. Gregg - Numbness and tingling of left arm and leg 08/07/2013 - Panic attacks - Recurrent UTI 11/28/2011 - Spina bifida (HCC) 01/06/2016 - Type 2 diabetes mellitus without complication ([facility]) 02/12/2015 - Urinary tract infection, site not [...] mouth as needed. Blood-Glucose Meter (ACCU-CHEK ANISH[place] [facility] [place] kit. Dx: Other DM [...] directed, ulcer of left 1st metatarsal, measurement: [id number], Dx: E11.621, L97.522 (Patient not taking: Reported on 10/05/2017 ) No current facility-administered medications on file prior to visit. 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 Simeon Rutherford ENVIRONMENTAL REMEDIATION ENGINEER Problem List As Of Date 01/08/2018 Noted [...] Type 2 diabetes mellitus with proteinuria ([facility])*INVALID FOR* Priority: A Pyelonephritis [N12] INVALID FOR* Diabetic eye exam ([facility]) [Z01.00, E11.9] INVALID FOR* Priority: A More... Migraine without aura and without status migrai*INVALID FOR* Priority: A Type 2 diabetes mellitus with albuminuria ([facility])*INVALID FOR* Priority: A Well adult exam [Z00.00] INVALID FOR* Priority: E More... Ulcer of left foot ([facility]) [L97.529] INVALID FOR* Priority: M Paroxysmal SVT [...] directed, ulcer of left 1st metatarsal, measurement: [id number], Dx: E11.621, L97.522 Patient not taking: Reported on 10/05/2017 Disc: Course of therapy completed Disposition: Return in about 3 weeks (around 01/29/2018). Follow-up and Disposition History Recorded Encounter Status:Closed by ABBE MILLAN CONE TREATER on 01/08/18 ISAEL Observed: 01/02/2018 Status: COMPLETED Source: [place] 2:30 PM [facility] REPOSITORY Office Visit (AGGENS1) DEBBY BAILON ([id number]) 1980 F Date Time Provider Department 01/02/18 [...] thoracic - Dysthymic disorder Depression (non-psychotic), [facility] 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 - Lumbago 02/12/2015 - Migraine - Miscarriage - Morbid obesity (HCC) 02/12/2015 - Muscle weakness of left lower extremity 08/07/2013 - Neck pain 05/02/2013 - Neurogenic bladder 02/12/2015 - Neurogenic bladder - Neurogenic bowel 01/06/2016 - Neuropathy ([facility]) 02/12/2015 post back surgery with secondary infection. Seeing Dr. 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 Blood-Glucose Meter (ACCU-CHEK ANISH[place] [facility] [place] 1 meter kit. Dx: Other DM [...] lower extr*INVALID FOR*01/06/2016 Priority: D Lipomeningocele ([facility]) [Q05.9] INVALID FOR* Priority: B Lumbago [M54.5] INVALID FOR* Priority: M Neuropathy ([facility]) [G62.9] INVALID FOR* Priority: A More... Morbid obesity ([facility]) [E66.01] INVALID FOR* Priority: B Chronic pain [G89.29] INVALID FOR* Priority: M Neurogenic bladder [N31.9] INVALID FOR* Priority: B Hydronephrosis, right [N13.30] INVALID FOR* Priority: C History of kidney stones [Z87.442] INVALID FOR* Priority: C Spina bifida ([facility]) [Q05.9] INVALID FOR* Priority: B Neurogenic bowel [K59.2] INVALID FOR* Priority: B Primary insomnia [F51.01] INVALID FOR* Priority: A Type 2 diabetes mellitus with proteinuria ([facility])*INVALID FOR* Priority: A Pyelonephritis [N12] INVALID FOR* Diabetic eye exam ([facility]) [Z01.00, E11.9] INVALID FOR* Priority: A More... Migraine without aura and without status migrai*INVALID FOR* Priority: A Type 2 diabetes mellitus with albuminuria ([facility])*INVALID FOR* Priority: A Well adult exam [Z00.00] INVALID FOR* Priority: E More... 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 No suspicious or solid mass Shank Breaker: [facility] Transcribe Date/Time: Jan 01 2018 6:12P Dictated by : GAMA TAPIA MD This examination was interpreted and the report reviewed and electronically signed by: GAMA TAPIA MD on Jan 01 2018 6:14PM EST [id number] ED NOTE Observed: 12/26/2017 Status: COMPLETED Source: [place] 12:27 PM [facility] REPOSITORY HNO ID: [id number] Author: Kati (Rn) VERNON Be Service: Emergency Medicine Author Type: Registered Nurse Type: ED Notes Filed: 12/26/2017 12:27 PM Note Text: Pt given icepack . Aware up for d/c . Aware waiting on paperwork ED PROV NOTE Observed: 12/26/2017 Status: COMPLETED Source: [place] 12:16 PM [facility] REPOSITORY HNO ID: [id number] Author: Annamaria Petersen MD Service: Emergency Medicine [...] ED NOTE Observed: 12/26/2017 Status: COMPLETED Source: [place] 11:34 AM [facility] REPOSITORY HNO ID: [id number] Author: Kati (Rn) VERNON Be Service: Emergency Medicine Author Type: Registered Nurse Type: ED Notes Filed: 12/26/2017 11:34 AM Note Text: Visitor at bedside. ED PROV NOTE Observed: 12/26/2017 Status: COMPLETED Source: [place] 11:12 AM [facility] OTHER CAMPUS REPOSITORY HNO ID: [id number] Author: Annamaria Petersen MD Service: Emergency Medicine [...] thoracic - Dysthymic disorder Depression (non-psychotic), [facility] 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 - Lumbago 02/12/2015 - Migraine - Miscarriage - Morbid obesity (HCC) 02/12/2015 - Muscle weakness of left lower extremity 08/07/2013 - Neck pain 05/02/2013 - Neurogenic bladder 02/12/2015 - Neurogenic bladder - Neurogenic bowel 01/06/2016 - Neuropathy ([facility]) 02/12/2015 post back surgery with secondary infection. Seeing Dr. Gregg - Numbness and tingling of left arm and leg 08/07/2013 - Panic attacks - Recurrent UTI 11/28/2011 - Spina bifida ([facility]) 01/06/2016 - Type 2 diabetes mellitus without complication ([facility]) 02/12/2015 - Urinary tract infection, site not [...] Impression Clinical Impressions as of Dec 26 123 Contusion of abdominal wall, initial encounter MDM [...] EMERGENCY DEPARTMENT Observed: 12/24/2017 Status: F Source: [place] SUMMARY 3:43 PM [facility] REPOSITORY [facility] Medical Records Department [address] [place] [address] Emergency Department Summary 12/24/17 0735 MR#: [id number] Acct: [id number] Name: DEBBY BAILON Rep #: [id number] : 1980 37 From: Jayson Yost MD PCP: Will Dietz MD Status: DEP ER - ER Visit Summary Date of Service: 12/24/17 Chief Complaint: [Abdominal pain] History of Present Illness: The patient is a 37 F with abdominal pain for the past 2 weeks since her recent abdominal hernia surgery done at [facility]. She has no fever or chills [...] [Abdominal pain] This note was generated with [employer] dictation software. It may contain incorrect words, spelling, and punctuation that were not noted in review of the chart prior to signing ED Disposition - Plan for ED Patient: Disposition: Home or Assisted Living Chief Complaint: Abd Pain Instructions: Abdominal Pain Prescriptions: Hydrocodone Bitart/Apap 5-325 [Paris 5/325] 1 - 2 tab PO Q4H PRN PRN #3 tab PRN Reason: Pain Referrals: Will Dietz MD [Primary Care Provider] - 2 Days What to do if you have Problems For any increased pain, shortness of breath, bleeding, nausea or vomiting, chest pain, or any unexpected problems, contact your Primary Care Provider. Call [facility] ([phone]) or report to the closest Emergency Room. Call 911 if necessary. 12/24/17 1543 <Electronically signed by Jayson Yost MD> Date Jayson Yost MD Cosigner Signature (If Indicated): Date CC: Will Dietz MD CBC W/DIFF, AUTOMATED Collected: 12/24/2017 Status: F Source: [place] 7:45 AM [facility] REPOSITORY TYPE CODE TESTS RESULT OUT [...] Lymph 3.02 Performed By: #### L100.0100 #### [facility] [address], [address] COMPREHENSIVE METABOLIC Collected: 12/24/2017 Status: F Source: [place] MICHAUD 7:45 AM [facility] REPOSITORY TYPE CODE TESTS RESULT OUT [...] GAP 9 Performed By: #### L500.4050 #### [facility] [address] [place], [address] ABDOMEN/PELVIS W IV CONT Observed: 12/24/2017 Status: F Source: [place] ONLY 7:35 AM [facility] REPOSITORY [facility] Imaging Services [address] [place] [address] Abdomen/Pelvis W IV Cont ONLY MR#: [id number] Acct: [id number] Name: DEBBY BAILON Rep #: [id number] : 1980 F 37 From: Daniel Fitch PCP: Will Dietz MD Status: REG ER Study: Abdomen/Pelvis W IV Cont ONLY Date of Exam: 12/24/17 Exam# [id number] Ordering Dr: Jayson Yost MD STUDY: CT [...] CC: Will Dietz MD; Jayson Yost MD Shank Breaker: Signed EMERGENCY DEPARTMENT Observed: 12/20/2017 Status: F Source: [place] SUMMARY 6:08 PM [facility] REPOSITORY [facility] Medical Records Department [address] [place], [place] [address] [address] Emergency Department Summary 12/20/17 1623 MR#: [id number] Acct: [id number] Name: DEBBY BAILON Rep #: [id number] : 1980 37 From: Dre Deal MD [...] 24-48 hours. She contacted her surgeon at [facility]. He requested that she come to [...] obtained and consultation with her surgeon at [facility]. Her surgeon returned my page. He informed me that she has a Knapp stoma and reason she is passing gas from her umbilicus. Plan is to discharge to home with antibiotics if CT of the abdomen reveals no significant findings. If there is gas and more gas than prior scan in fluid collection previously noted she is to be transferred to [facility] otherwise follow-up as outpatient in 2-3 days Impression: 1. Subcutaneous fluid collection evaluate for abscess 2. Knapp stoma 3. History of spina bifida 4. History of frequent UTIs 5. History of type 2 diabetes This note was generated with [employer] dictation software. It may contain incorrect words, [...] your Primary Care Provider. Call [facility] ([phone]) or report to the closest Emergency Room. Call 911 if necessary. 12/20/17 1703 <Electronically signed by Dre Deal MD> Date Dre Deal MD Cosigner Signature (If Indicated): Date CC: Will Dietz MD ABDOMEN/PELVIS WITH Observed: 12/20/2017 Status: F Source: [place] CONTRAST 3:27 PM [facility] REPOSITORY [facility] Imaging Services [address] [place] [address] Abdomen/Pelvis WITH Contrast MR#: [id number] Acct: [id number] Name: DEBBY BAILON Rep #: [id number] : 1980 F 37 From: Tulio Hartmann MD PCP: Will Dietz MD Status: REG ER Study: Abdomen/Pelvis WITH Contrast Date of Exam: 12/20/17 Exam# [id number] Ordering Dr: Dre Deal MD STUDY: CT [...] CC: Will Dietz MD; Dre Deal MD Shank Breaker: Signed BASIC METABOLIC Collected: 12/20/2017 Status: F Source: [place] PROFILE (BMP) 1:20 PM [facility] REPOSITORY TYPE CODE TESTS RESULT OUT [...] GAP 6 Performed By: #### L500.2500 #### [facility] [address] [place], [address] CBC W/DIFF, AUTOMATED Collected: 12/20/2017 Status: F Source: [place] 1:20 PM [facility] REPOSITORY TYPE CODE TESTS RESULT OUT [...] Lymph 1.98 Performed By: #### L100.0100 #### [facility] [address] [facility] [place], [address] 12 LEAD ELECTROCARDIOGRAM Observed: 12/19/2017 Status: F Source: [place] 1:18 PM [facility] REPOSITORY [facility] Cardiovascular Services [address] [place] [address] 12 Lead EKG 12/16/17 0808 MR#: [id number] Acct: [id number] Name: DEBBY BAILON Rep #: [id number] : 1980 37 From: Jayson Alvarez MD [...] Normal ECG Confirmed by STEFANI FITZGERALD, JAYSON ([id number]), editor managing newspaper LYLA HAY ([id number]) on 12/19/2017 1:18:31 PM Referred By: EMMANUEL Confirmed By:JAYSON ALVAREZ MD 12/19/17 1318 Date Jayson Alvarez MD CC: Will Dietz MD; Taya Wong MD Signed EMERGENCY DEPARTMENT Observed: 12/18/2017 Status: F Source: [place] SUMMARY 1:33 AM [facility] REPOSITORY [facility] Medical Records Department [address] [place] [address] Emergency Department Summary 12/18/17 0003 MR#: [id number] Acct: [id number] Name: DEBBY BAILON Rep #: [id number] : 1980 37 From: Celine Boateng MD PCP: Will Dietz MD Status: DEP ER - ER Visit Summary Date of Service: 12/18/17 Chief Complaint: Abdominal pain History of Present Illness: The patient is a 37 F presents to the emergency department with abdominal pain. The patient had hernia repair done on December 11 at [facility] by Dr. Rios. She states that [...] patient can safely be discharged. I did appliance counselor her that she needs to call her surgeon tomorrow from [place] to discuss plan of care. She will continue her oral antibiotics. I did add new antiemetics and antispasmodics to her regimen. She was counseled on concerning symptoms and reasons to return. The patient be discharged home. Treatment Plan: [] Disposition: Discharge Impression: Postoperative abdominal pain This note was generated with [employer] dictation software. It may contain incorrect words, [...] problems, contact your Primary Care Provider. Call [facility] ([phone]) or report to the closest Emergency Room. Call 911 if necessary. 12/18/17 0133 <Electronically signed by Celine Boateng MD> Date Celine Boateng MD Cosigner Signature (If Indicated): Date CC: Will Dietz MD COMPREHENSIVE METABOLIC Collected: 12/17/2017 Status: F Source: [place] PROFIL 12:02 AM [facility] REPOSITORY TYPE CODE TESTS RESULT OUT [...] GAP 8 Performed By: #### L500.4050 #### [facility] [address] [place], [place], [id number] CBC W/DIFF, AUTOMATED Collected: 12/17/2017 Status: F Source: [place] 12:02 AM [facility] REPOSITORY TYPE CODE TESTS RESULT OUT [...] Lymph 3.49 Performed By: #### L100.0100 #### [facility] [address] [place], [address] EMERGENCY DEPARTMENT Observed: 12/16/2017 Status: F Source: [place] SUMMARY 4:26 PM [facility] REPOSITORY [facility] Medical Records Department [address] [place] [address] Emergency Department Summary 12/16/17 0823 MR#: [id number] Acct: [id number] Name: DEBBY BAILON Rep #: [id number] : 1980 37 From: Taya Wong MD PCP: Will Dietz MD Status: DEP ER - ER Visit Summary Date of Service: 12/16/17 Chief Complaint: Short of breath, dizzy, nausea History of Present Illness: The patient is a 37 F who underwent umbilical hernia repair on December 11 at [facility]. She had a prior stoma [...] thyroid nodule This note was generated with [employer] software. It may contain incorrect words, spelling, [...] problems, contact your Primary Care Provider. Call [facility] ([phone]) or report to the closest Emergency Room. Call 911 if necessary. 12/16/17 1626 <Electronically signed by Taya Wong MD> Date Taya Wong MD Cosigner Signature (If Indicated): Date CC: Will Dietz MD DISCHARGE INSTRUCTION Observed: 12/16/2017 Status: F Source: [place] 12:32 PM [facility] Medical Records Department [address] [place] [address] Discharge Instruction 12/16/17 1230 MR#: [id number] Acct: [id number] Name: UVALDODEBBY CORRIGAN Colette Rep #: [id number] : 1980 37 From: Taya Wong MD [...] problems, contact your Primary Care Provider. Call [facility] ([phone]) or report to the closest Emergency Room. Call 911 if necessary. 12/16/17 1232 <Electronically signed by Taya Wong MD> Date Taya Wong MD Cosigner Signature (If Indicated): Date CC: Will Dietz MD URINALYSIS, COMPLETE Collected: 12/16/2017 Status: F Source: [place] 9:25 AM [facility] REPOSITORY Order Comment: Order Date: 12/16/17 Has [...] URINE SEEN Performed By: #### L400.0001 #### [facility] [address] [place], [address] CBC W/DIFF, AUTOMATED Collected: 12/16/2017 Status: F Source: [place] 8:35 AM [facility] REPOSITORY TYPE CODE TESTS RESULT OUT [...] Lymph 2.30 Performed By: #### L100.0100 #### [facility] [address] [place], [address] BASIC METABOLIC Collected: 12/16/2017 Status: F Source: [place] PROFILE (BMP) 8:35 AM [facility] REPOSITORY TYPE CODE TESTS RESULT OUT [...] GAP 8 Performed By: #### L500.2500 #### [facility] [address] [place], [address] CHEST 1 VIEW Observed: 12/16/2017 Status: F Source: [place] (PORTABLE) 8:18 AM [facility] REPOSITORY [facility] Imaging Services [address] [place] [address] Chest 1 View (Portable) MR#: [id number] Acct: [id number] Name: DEBBY BAILON Rep #: [id number] : 1980 F 37 From: Kirsten Torres MD PCP: Will Dietz MD Status: REG ER Study: Chest 1 View (Portable) Date of Exam: 12/16/17 Exam# [id number] Ordering Dr: Taya Wong MD STUDY: X-RAY [...] CC: Will Dietz MD; Taya Wong MD Shank Breaker: Signed ABDOMEN/PELVIS WITH Observed: 12/16/2017 Status: F Source: [place] CONTRAST 8:18 AM [facility] REPOSITORY [facility] Imaging Services [address] [place] [address] Abdomen/Pelvis WITH Contrast MR#: [id number] Acct: [id number] Name: DEBBY BAILON Rep #: [id number] : 1980 F 37 From: Kirsten Torres MD PCP: Will Dietz MD Status: REG ER Study: Abdomen/Pelvis WITH Contrast Date of Exam: 12/16/17 Exam# [id number] Ordering Dr: Taya Wong MD STUDY: CT [...] CC: Will Dietz MD; Taya Wong MD Shank Breaker: Signed CTA CHEST W/WO Observed: 12/16/2017 Status: F Source: [place] CONTRAST 8:18 AM [facility] REPOSITORY [facility] Imaging Services [address] [place] [address] CTA Chest W/WO Contrast MR#: [id number] Acct: [id number] Name: DEBBY BAILON Rep #: [id number] : 1980 F 37 From: Kirsten Torres MD PCP: Will Dietz MD Status: REG ER Study: CTA Chest W/WO Contrast Date of Exam: 12/16/17 Exam# [id number] Ordering Dr: Taya Wong MD STUDY: CTA [...] CC: Will Dietz MD; Taya Wong MD Shank Breaker: Signed GLUCOSE METER Collected: 12/12/2017 Status: F Source: [facility] 4:52 PM HEALTH SYSTEM REPOSITORY TYPE CODE TESTS RESULT OUT OF REFERENCE UNITS RANGE LAB GLUBL(LOINC 70-99 mg/dL ) High Glucose Meter 186 Result Comment: RN NOTIFIED Performed By: #### GLMET #### [place] [address] CNDS Observed: 12/12/2017 Status: COMPLETED Source: [place] 3:18 PM CLINIC OTHER CAMPUS REPOSITORY HNO ID: [id number] Author: Naty Araiza Service: General Surgery Author [...] medication (see prescription) You should use an [id number]-mrs-xmgybga stool softener (Docusate sodium) and/or a fiber [...] to call for appointment?: Yes Anne Christensen [phone] 1 [facility] [address] [facility] [address] PCP Requested Referral Additional Provider to Provider Information: No notes on file FOLLOW-UP APPOINTMENTS ALREADY SCHEDULED WITH A [facility] PROVIDER: Future Appointments Date Time Provider Department Center 02/28/2018 5:40 PM Will BURGOSCHAZ [facility] [place] DISCHARGE MEDICATION: Current Discharge Medication List [...] Associated Diagnoses: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) oxybutynin ER (DITROPAN XL) 10 mg Take 10 mg by mouth once daily. Qty: 20 tablet Refills: 0 gabapentin (NEURONTIN) 300 mg Take 300 mg by mouth three times daily. zolpidem (AMBIEN) 1 tablet Take 1 tablet by mouth as needed. Blood-Glucose Meter (ACCU-CHEK ANISH) [facility] [place] 1 meter kit. Dx: Other DM [...] directed, ulcer of left 1st metatarsal, measurement: [id number], Dx: E11.621, L97.522 Qty: 1 Package Refills: 3 Associated Diagnoses:Other diabetic neurological complication associated with type 2 diabetes mellitus (HCC); Toe amputation status, left ([facility]); Diabetic ulcer of toe of left foot associated with type 2 diabetes mellitus, with fat layer exposed ([facility]) hydrOXYzine pamoate (VISTARIL) 25 mg Take 25 mg by mouth three times daily as needed. Per Counseling Center Refills: 0 !! - Potential duplicate medications found. Please discuss with provider. TIME OF CARE: Discharge Management: I personally spent greater than 30 minutes involved in the discharge management of this patient. SIGNATURE: Naty Araiza APRN.CONE TREATER PAGER/CONTACT #: [phone] DATE: December 12, 2017 TIME: 3:18 PM NURSING PROG Observed: 12/12/2017 Status: COMPLETED Source: [place] 2:27 PM [facility] OTHER [facility]AMP[facility] REPOSITORY HNO ID: [id number] Author: Margarita ValdezRn) VERNON Hay Service: Nursing Author Type: Registered Nurse Type: Nursing Progress Note Filed: 12/12/2017 2:28 PM Note Text: 1425 Transferred on bed to [facility] NURSING PROG Observed: 12/12/2017 Status: COMPLETED Source: [place] 2:19 PM [facility] REPOSITORY HNO ID: [id number] Author: Margarita ValdezRn) VERNON Hay Service: Nursing Author Type: Registered Nurse Type: Nursing Progress Note Filed: 12/12/2017 2:20 PM Note Text: 1330 Report called to Vasiliy Medina for [address] [place] [address] Room not ready NURSING PROG Observed: 12/12/2017 Status: COMPLETED Source: [place] 6:35 AM [facility] REPOSITORY HNO ID: [id number] Author: Benjie ValdezRn) VERNON Maurice Service: Nursing Author Type: Registered Nurse Type: Nursing Progress Note Filed: 12/12/2017 6:36 AM Note Text: Dr Briceno by to see pt, informed of unable to obtain blood specimen this morning. NURSING PROG Observed: 12/12/2017 Status: COMPLETED Source: [place] 6:15 AM [facility] REPOSITORY HNO ID: [id number] Author: Benjie ValdezRn) VERNON Maurice Service: Nursing Author Type: Registered Nurse Type: Nursing Progress Note Filed: 12/12/2017 6:16 AM Note Text: Unsuccessful blood draw attempts by 2 RN's twice each. Pt tolerated well. PROGRESS Observed: 12/12/2017 Status: COMPLETED Source: [place] 6:13 AM [facility] REPOSITORY HNO ID: [id number] Author: Pérez Briceno Service: General Surgery Author [...] Nasal Cannula IANDO: Date 12/11/17699 - 12/12/17 0612/12/17 07 - 12/13/17 0659 Shift 7924-4476 3051-7773 6587-9092 24 Hour Total 8289-0783 1992-1232 7978-5969 24 Hour Total I N T A [...] ANES POST Observed: 12/12/2017 Status: COMPLETED Source: [place] 12:02 AM [facility] REPOSITORY HNO ID: [id number] Author: Javier Pruett Service: Anesthesiology Author Type: [...] OPERATIVE NO Observed: 12/11/2017 Status: COMPLETED Source: [place] 7:10 PM [facility] REPOSITORY HNO ID: [id number] Author: Pérez Briceno Service: General Surgery Author Type: Resident Type: Operative Report Filed: 12/12/2017 12:06 PM Note Text: Attestation signed by Anne Christensen at 12/12/2017 3:32 PM I was present for the critical portions of the procedure and was immediately available to provide assistance. I agree with the residents operative dictation. Anne Christensen MD December 12, 2017 3:32 PM OPERATIVE/PROCEDURE REPORT LOG ID: [id number] SURGERY/PROCEDURE DATE: 12/11/2017 INCISION/PROCEDURE START TIME: 5:23 PM INCISION CLOSE/PROCEDURE END TIME: 6:51 PM SURGEON(S)/PROCEDURALIST(S) AND MANAGER CRITICAL CARE UNIT(S): Surgeon(s) and Role: * Anne Christensen - [...] OP NOT Observed: 12/11/2017 Status: COMPLETED Source: [place] 6:53 PM [facility] OTHER CAMPUS REPOSITORY HNO ID: [id number] Author: Pérez Briceno Service: General Surgery Author Type: Resident Type: Brief Op Note Filed: 12/11/2017 6:54 PM Note Text: BRIEF OPERATIVE / PROCEDURE NOTE LOG ID: [id number] SURGERY/PROCEDURE DATE: 12/11/2017 INCISION/PROCEDURE START TIME: 5:23 PM INCISION CLOSE/PROCEDURE END TIME: 6:51 PM SURGEON(S)/PROCEDURALIST(S) AND MANAGER CRITICAL CARE UNIT(S): Surgeon(s) and Role: * Anne Christensen - [...] NURSING PROG Observed: 12/11/2017 Status: COMPLETED Source: [place] 5:38 PM [facility] OTHER [place] REPOSITORY HNO ID: [id number] Author: Hilda ValdezRn) VERNON Gonzalez Service: Nursing Author Type: Registered Nurse Type: Nursing Progress Note Filed: 12/11/2017 5:39 PM Note Text: Family updated URINE HCG, QUAL. Collected: 12/11/2017 Status: F Source: [facility] 1:25 PM HEALTH SYSTEM REPOSITORY TYPE CODE TESTS RESULT OUT OF REFERENCE UNITS RANGE LAB URHCG(LOIN Negative C) HCG, Qual. Negative Urine LAB SPGR(LOINC 1.005-1.030 ) Specific 1.013 Rogers, Ur Performed By: #### HCGUR #### [place] [address] ANES PREOP Observed: 12/11/2017 Status: COMPLETED Source: [place] 1:13 PM [facility]INIC OTHER CAMPUS REPOSITORY HNO ID: [id number] Author: Celine Alfred Service: Anesthesiology Author Type: [...] Arm and Leg Lipomeningocele (Hcc) Lumbago Neuropathy ([facility]) Morbid Obesity ([facility]) Chronic Pain Neurogenic Bladder Hydronephrosis, Right History of Kidney Stones Spina Bifida ([facility]) Neurogenic Bowel Primary Insomnia Type 2 Diabetes Mellitus With Proteinuria ([facility]) Pyelonephritis Diabetic Eye Exam ([facility]) Migraine Without Aura and Without Status Migrainosus, Not Intractable Type 2 Diabetes Mellitus With Albuminuria ([facility]) Well Adult Exam Ulcer of Left Foot ([facility]) Paroxysmal Svt (Supraventricular Tachycardia) ([facility]) Dm (Diabetes Mellitus), Secondary, Uncontrolled, W/Renal Complications ([facility]) PAST MEDICAL HISTORY Diagnosis Date - Abnormal sensation of left upper and lower extremity 08/07/2013 - Anxiety - Arthritis started age 19 - Cervical radiculopathy 05/02/2013 - Chronic pain 02/12/2015 - Depressive disorder, not elsewhere classified 11/28/2011 [facility] - DJD (degenerative joint disease), thoracic - Dysthymic disorder Depression (non-psychotic), [facility] - Insomnia - Lipomeningocele, sacral level [...] directed, ulcer of left 1st metatarsal, measurement: 5nlu3pdl0qc, Dx: E11.621, L97.522 (Patient not taking: Reported [...] December 11, 2017 TIME: 1:13 PM CSN: [id number] ANDREW Observed: 12/05/2017 Status: COMPLETED Source: [place] 12:00 AM [facility] REPOSITORY Telephone (FAMPWS) DEBBY BAILON ([id number]) 1980 F Date Time Provider Department 12/05/17 WILL DIETZ During your visit today, we recorded the following information about you: Yin Jojo WATERS 12/05/2017 10:06 AM Signed Pt calls [...] [facility] to ask for letter for deputy county clerk pet as advised by pcp. She was told that her pcp has to do that. Now pt is confused. Yin Uribe LPN Fifi Kay ENVIRONMENTAL REMEDIATION ENGINEER 12/05/2017 3:12 PM Signed Patient calling to check status of request. Patient said she tests twice daily for her meter. Will Dietz MD 12/05/2017 3:52 PM Signed [facility] please call the counseling Center and discuss with them that the patient called requesting a letter for a deputy county clerk pet. patient sees them for her Anxiety [...] medical necessity Chasidy Cade Ma Fifi Eliza ENVIRONMENTAL REMEDIATION ENGINEER 12/05/2017 5:02 PM Signed [facility] calling said do not carry stoma catheter and not sure where patient will be able to get it from. Phoned patient and let her know pharmacy does not carry stoma catheter and she said she will call Narc[facility] Ateeda in the morning. Allergies As of Date: [...] lower extr*INVALID FOR*01/06/2016 Priority: D Lipomeningocele ([facility]) [Q05.9] INVALID FOR* Priority: B Lumbago [M54.5] INVALID FOR* Priority: M Neuropathy ([facility]) [G62.9] INVALID FOR* Priority: A More... Morbid obesity ([facility]) [E66.01] INVALID FOR* Priority: B Chronic pain [G89.29] INVALID FOR* Priority: M Neurogenic bladder [N31.9] INVALID FOR* Priority: B Hydronephrosis, right [N13.30] INVALID FOR* Priority: C History of kidney stones [Z87.442] INVALID FOR* Priority: C Spina bifida ([facility]) [Q05.9] INVALID FOR* Priority: B Neurogenic bowel [K59.2] INVALID FOR* Priority: B Primary insomnia [F51.01] INVALID FOR* Priority: A Type 2 diabetes mellitus with proteinuria ([facility])*INVALID FOR* Priority: A Pyelonephritis [N12] INVALID FOR* Diabetic eye exam ([facility]) [Z01.00, E11.9] INVALID FOR* Priority: A More... Migraine without aura and without status migrai*INVALID FOR* Priority: A Type 2 diabetes mellitus with albuminuria ([facility])*INVALID FOR* Priority: A Well adult exam [Z00.00] INVALID FOR* Priority: E More... Ulcer of left foot ([facility]) [L97.529] INVALID FOR* Priority: M Paroxysmal SVT [...] HISTORY PHYSICAL Observed: 12/01/2017 Status: COMPLETED Source: [place] 11:03 AM [facility]INIC OTHER CAMPUS REPOSITORY O ID: [id number] Author: Stacey Rao Service: (none) Author Type: [...] With Proteinuria (Hcc) Pyelonephritis Diabetic Eye Exam ([facility]) Migraine Without Aura and Without Status Migrainosus, Not Intractable Type 2 Diabetes Mellitus With Albuminuria (Hcc) Well Adult Exam Ulcer of Left Foot (Hcc) Paroxysmal Svt (Supraventricular Tachycardia) ([facility]) Subjective CHIEF COMPLAINT: Ventral hernia without obstruction or gangrene HPI: Ms. Bailon is a 37 year old female present in presurgical testing. She states she found the hernia in september 2017. States she has a stoma in her stomach and she had an xray and cat scan and found it. States the xray was completed in [place] referred her to [facility] because the type of the stoma [...] thoracic - Dysthymic disorder Depression (non-psychotic), [facility] 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 - Lumbago 02/12/2015 - Migraine - Miscarriage - Morbid obesity (HCC) 02/12/2015 - Muscle weakness of left lower extremity 08/07/2013 - Neck pain 05/02/2013 - Neurogenic bladder 02/12/2015 - Neurogenic bladder - Neurogenic bowel 01/06/2016 - Neuropathy ([facility]) 02/12/2015 post back surgery with secondary infection. Seeing Dr. 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 Denies V/D. : Denies dysuria. 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 Endocrine: + diabetes. [...] 01, 2017 TIME: 11:03 AM PAGER/CONTACT #: [facility] Observed: 11/09/2017 Status: COMPLETED Source: [place] 12:00 AM CLINIC OTHER CAMPUS REPOSITORY Patient:Debby Bailon MRN: <[id number]> Height:5' 2(1.575 m) Weight:237 lb (107.502 kg) [...] [F51.01] Type 2 diabetes mellitus with proteinuria ([facility]) [E11.29, R80.9] Pyelonephritis [N12] Diabetic eye exam ([facility]) [Z01.00, E11.9] Migraine without aura and without status migrainosus, not intractable [G43.009] Type 2 diabetes mellitus with albuminuria ([facility]) [E11.29, R80.9] Well adult exam [Z00.00] Ulcer of left foot ([facility]) [L97.529] Paroxysmal SVT (supraventricular tachycardia) ([facility]) [I47.1] DM (diabetes mellitus), secondary, uncontrolled, w/renal complications ([facility]) [E13.29, E13.65] Allergies: Mushroom Peanuts Mri Contrast [Gadolinium-Containing Contrast Media] Date Verified: 12/11/17 Lab Values No results within the last 30 days for the following basenames: K,HCT Progress Notes ([facility]): Yin Uribe LPN 12/05/2017 10:06 [...] [facility] to ask for letter for deputy county clerk pet as advised by pcp. She was told that her pcp has to do that. Now pt is confused. Yin Uribe LPN Fifi Kay ENVIRONMENTAL REMEDIATION ENGINEER 12/05/2017 3:12 PM Signed Patient calling to check status of request. Patient said she tests twice daily for her meter. Will Dietz MD 12/05/2017 3:52 PM Signed [facility] please call the counseling Center and discuss with them that the patient called requesting a letter for a deputy county clerk pet. patient sees them for her Anxiety [...] 12/05/2017 4:02 PM [facility] detailed message on Dr. Coates Voicemail at counseling center Patient advised pcp does not give letters for this and needs to come from counselor who manages anziety/panic attacks. Patient is aware that message left on Dr. Coates voicemail requesting if staff can contact patient if letter is fit medical necessity Chasidy Cade Ma Fifi ePñanisa ENVIRONMENTAL REMEDIATION ENGINEER 12/05/2017 5:02 PM Signed [facility] pharmacy calling said do not carry stoma catheter and not sure where patient will be able to get it from. Phoned patient and let her know pharmacy does not carry stoma catheter and she said she will call [facility] in the morning. EMERGENCY DEPARTMENT Observed: 11/08/2017 Status: F Source: [place] SUMMARY 7:27 AM [facility] REPOSITORY [facility] Medical Records Department [address] [place] [address] Emergency Department Summary 11/08/17 0129 MR#: [id number] Acct: [id number] Name: DEBBY BAILON Rep #: [id number] : 1980 36 From: Celine Caputo MD [...] will follow up with her surgeon at [facility]. Disposition: Discharge Impression: 1. Acute on chronic abdominal pain This note was generated with [employer] dictation software. It may contain incorrect words, spelling, and punctuation that were not noted in review of the chart prior to signing ED Disposition - Plan for ED Patient: Disposition: Home or Assisted Living Chief Complaint: Abd Pain Diagnosis: Abdominal pain Instructions: ED Abdominal Pain Unkn Cause Additional Instructions: Followup with your surgeon at [facility] as scheduled. What to do if you have Problems For any increased pain, shortness of breath, bleeding, nausea or vomiting, chest pain, or any unexpected problems, contact your Primary Care Provider. Call [facility] ([phone]) or report to the closest Emergency Room. Call 911 if necessary. 11/08/17 0754 <Electronically signed by Celine Caputo MD> Date Celine Caputo MD Cosigner Signature (If Indicated): Date CC: Will Dietz MD CBC W/DIFF, AUTOMATED Collected: 11/07/2017 Status: F Source: [place] 11:25 PM [facility] REPOSITORY TYPE CODE TESTS RESULT OUT [...] Lymph 2.86 Performed By: #### L100.0100 #### [facility] [address] [place], [address] COMPREHENSIVE METABOLIC Collected: 11/07/2017 Status: F Source: [place]UD 11:25 PM [facility] REPOSITORY TYPE CODE TESTS RESULT OUT [...] 9 Performed By: #### L500.4050, L501.2450 #### [facility] [address] [facility] [address] [place], [address] LIPASE Collected: 11/07/2017 Status: F Source: [place] 11:25 PM [facility] REPOSITORY TYPE CODE TESTS RESULT OUT OF RANGE REFERENCE UNITS LAB L501.2450 73-393 U/L Normal LIPASE 132 Performed By: #### L500.4050, L501.2450 #### [facility] [address] [place], [address] LACTIC ACID Collected: 11/07/2017 Status: F Source: [place] 11:25 PM [facility] REPOSITORY Order Comment: Yes/No query for Sepsis Lactate Rule Y TYPE CODE TESTS RESULT OUT OF RANGE REFERENCE UNITS LAB L503.6005 0.4-2.0 mmol/L Normal LACTIC ACID 1.4 Performed By: #### L503.6005 #### [facility] [address] [facility] [place], [address] ABDOMEN/PELVIS WITHOUT Observed: 11/07/2017 Status: F Source: [place] CONT 11:07 PM [facility] REPOSITORY [facility] Imaging Services [address] [place] [address] Abdomen/Pelvis without Cont MR#: [id number] Acct: [id number] Name: DEBBY BAILON Rep #: [id number] : 1980 F 36 From: Demetrius Britt PCP: Will Dietz MD Status: REG ER Study: Abdomen/Pelvis without Cont Date of Exam: 11/07/17 Exam# [id number] Ordering Dr: Celine Caputo MD STUDY: CT [...] , CC: Will Dietz MD; Celine Caputo Shank Breaker: Signed PROGRESS NOTE Observed: 11/07/2017 Status: COMPLETED Source: [place] 3:00 PM [facility] REPOSITORY Debby Bailon is here for consultation at the request of Will Dietz MD for: Urologic Problem ([facility] Discuss Knapp Stoma surgery) History of Presenting [...] reports prior visits with Dr. Sears at [facility]. She would like to continue seeing her. [...] stoma performed by Ramana Diaz MD at [facility] [place] Allergies: Allergies Allergen Reactions Mushroom Extract [...] nothing. Will coordinate with Dr. Christensen at [facility]. Recommended follow up with Dr. Farhat Sears, an adult urologist at [facility] for ongoing urologic issues. In the mean [...] 07, 2017 Observed: 10/25/2017 Status: F Source: [place] URINE CULTURE 3:45 PM [facility] REPOSITORY Culture Result - 50,000 - <100,000 CFU/ml Normal urogenital fred Performed By: #### URCUL #### [facility] [address] [place] [id number] URINALYSIS WITH Collected: 10/25/2017 Status: F Source: [facility] 3:30 PM [facility] REPOSITORY TYPE CODE TESTS RESULT OUT OF RANGE REFERENCE UNITS LAB UCOL Yellow Color Yellow LAB [facility] Clear Clarity Abnormal Cloudy Alert LAB UGLUC Negative mg/dL Glucose, Abnormal Urine >=500 Alert LAB UBIL Negative Bilirubin, Urine Negative LAB UKET Negative Ketones, Urine Negative LAB [facility] 1.005-1.030 Specific Rogers, Ur 1.017 LAB UHGB Negative Abnormal Hemoglobin/Blood, [...] Epithelial Cells Performed By: #### UAWMIC #### [facility] [address] [id number] PROGRESS Observed: 10/25/2017 Status: COMPLETED Source: [place] 2:52 PM [facility] REPOSITORY HNO ID: [id number] Author: Will Dietz Service: (none) Author Type: [...] thoracic - Dysthymic disorder Depression (non-psychotic), [facility] - Insomnia - Lipomeningocele, sacral level [...] Type 2 diabetes mellitus without complication ([facility]) 02/12/2015 - Urinary tract infection, site not [...] directed, ulcer of left 1st metatarsal, measurement: 6xll7axd2gt, Dx: E11.621, L97.522 (Patient not taking: Reported on 10/05/2017 ) No current facility-administered medications on file prior to visit. 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 - Insomnia - Lipomeningocele, sacral level [...] directed, ulcer of left 1st metatarsal, measurement: 6ojq3swh5of, Dx: E11.621, L97.522 (Patient not taking: Reported on 10/05/2017 ) No current facility-administered medications on file prior to visit. 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 Paroxysmal SVT (supraventricular tachycardia) ([facility]) - ICD9: 427.0, ICD10: I47.1 - Patient [...] to next visit. Referring Provider: WILL DIETZ [[id number]] Allergies As of Date: 10/25/2017 Noted Allergy [...] [E11.29, R80.9] Paroxysmal SVT (supraventricular tachycardia) ([facility]) [I47.1] Migraine without aura and without status migrainosus, not intractable [G43.009] Primary insomnia [F51.01] Neuropathy ([facility]) [G62.9] Morbid obesity ([facility]) [E66.01] Spina bifida with hydrocephalus, unspecified spinal region (HCC) [Q05.4] Lipomeningocele (HCC) [Q05.9] Recurrent UTI [N39.0] Pyelonephritis [N12] Dysthymic disorder [F34.1] Anxiety [F41.9] Order(s):ciprofloxacin HCl (CIPRO) 500 mg tabletTake 1 tablet by mouth twice daily for 10 days.Disp: 20 tabletRfl: 0 URINE CULTURE [SQURCUL] Order #: [id number]. #:[id number] URINALYSIS WITH MICROSCOPIC [SQUAWMIC] Order #: [id number] FUTURE blood sugar diagnostic (FREESTYLE LITE STRIPS) test stripTest blood sugar(s) 1-2 times daily. Dx: 250.0. Insulin: NoDisp: 50 StripRfl: 11 glimepiride (AMARYL) 4 mg tabletTake 1 tablet by mouth daily with breakfast.Disp: 30 tabletRfl: 5 atorvastatin (LIPITOR) 10 mg tabletTake 1 tablet by mouth once daily.Disp: 30 tabletRfl: 5 COMP METABOLIC PANEL [SQCMP] Order #: [id number] FUTURE HGB A1C [EYOAX1X] Order #: [id number] FUTURE LIPID PANEL BASIC [SQLIPB] Order #: [id number] FUTURE URINALYSIS WITH MICROSCOPIC [SQUAWMIC] Order #: [id number] FUTURE ALBUMIN/CREAT RATIO RND UR [SQUACR] Order #: [id number] FUTURE Prescriptions as of 10/25/2017 Sig: BLOOD [...] lower extr*INVALID FOR*01/06/2016 Priority: D Lipomeningocele ([facility]) [Q05.9] INVALID FOR* Priority: B Lumbago [M54.5] INVALID FOR* Priority: M Neuropathy ([facility]) [G62.9] INVALID FOR* Priority: A More... Morbid obesity ([facility]) [E66.01] INVALID FOR* Priority: B Chronic pain [G89.29] INVALID FOR* Priority: M Neurogenic bladder [N31.9] INVALID FOR* Priority: B Hydronephrosis, right [N13.30] INVALID FOR* Priority: C History of kidney stones [Z87.442] INVALID FOR* Priority: C Spina bifida ([facility]) [Q05.9] INVALID FOR* Priority: B Neurogenic bowel [...] 10/25/17 PROGRESS Observed: 10/17/2017 Status: COMPLETED Source: [place] 4:42 PM [facility] REPOSITORY HNO ID: [id number] Author: Anne Christensen Service: (none) Author Type: Physician Type: Progress Notes Filed: 10/17/2017 4:47 PM Note Text: Patient referred by: Fawn Coyne MD [address] [facility] [address] HPI: This is a new patient consult from Dr. Coyne. 36-year-old female with a history of spina bifida and neurogenic bladder. She underwent a maze procedure at [facility] for constipation. She has developed pain at [...] thoracic - Dysthymic disorder Depression (non-psychotic), [facility] 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 [...] directed, ulcer of left 1st metatarsal, measurement: 6yco9qxu4sp, Dx: E11.621, L97.522 (Patient not taking: Reported [...] MD CNOV Observed: 10/17/2017 Status: COMPLETED Source: [place] 3:00 PM [facility] REPOSITORY Office Visit (AGGENS1) UVALDODEBBY ([id number]) 1980 F Date Time Provider Department 10/17/17 3:00 PM ANNE CHRISTENSEN1 During your visit today, we recorded the following information about you: Pulse Blood pressure Weight Height 73/minute 130/82 110 kg 1.575 m Anne Christensen MD 10/17/2017 4:47 PM Signed Patient referred by: Fawn Coyne MD [address] [facility] [address] HPI: This is a new patient consult from Dr. Coyne. 36-year-old female with a history of spina bifida and neurogenic bladder. She underwent a maze procedure at [facility] for constipation. She has developed pain at [...] thoracic - Dysthymic disorder Depression (non-psychotic), [facility] 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 [...] directed, ulcer of left 1st metatarsal, measurement: 0wso2bpv2rq, Dx: E11.621, L97.522 (Patient not taking: Reported [...] CONSULT TO PEDS UROLOGY Anne Christensen MD Referring Provider: FAWN COYNE [[id number]] Allergies As of Date: 10/17/2017 Noted Allergy Reaction MRI CONTRAST (GADOLINIUM-CONTAINI*01/03/2017 8 - GI Upset MUSHROOM 06/10/2016 10 - Anaphylaxis PEANUTS 06/10/2016 10 - Anaphylaxis Date Reviewed: 10/17/2017 Reviewed by: Anne Christensen - Fully Assessed Reason for Visit: New Patient [172] Primary Visit Diagnosis:Incisional hernia with obstruction but no gangrene [K43.0] Order(s):CONSULT TO PEDS UROLOGY [407794] Order #: [id number]: 1 Prescriptions as of 10/17/2017 Sig: POLYETHYLENE [...] lower extr*INVALID FOR*01/06/2016 Priority: D Lipomeningocele ([facility]) [Q05.9] INVALID FOR* Priority: B Lumbago [M54.5] INVALID FOR* Priority: M Neuropathy ([facility]) [G62.9] INVALID FOR* Priority: A More... Morbid obesity ([facility]) [E66.01] INVALID FOR* Priority: B Chronic pain [G89.29] INVALID FOR* Priority: M Neurogenic bladder [N31.9] INVALID FOR* Priority: B Hydronephrosis, right [N13.30] INVALID FOR* Priority: C History of kidney stones [Z87.442] INVALID FOR* Priority: C Spina bifida ([facility]) [Q05.9] INVALID FOR* Priority: B Neurogenic bowel [K59.2] INVALID FOR* Priority: B Primary insomnia [F51.01] INVALID FOR* Priority: A Type 2 diabetes mellitus with proteinuria ([facility])*INVALID FOR* Priority: A Pyelonephritis [N12] INVALID FOR* Diabetic eye exam ([facility]) [Z01.00, E11.9] INVALID FOR* Priority: A More... Migraine without aura and without status migrai*INVALID FOR* Priority: A Type 2 diabetes mellitus with albuminuria ([facility])*INVALID FOR* Priority: A Well adult exam [Z00.00] INVALID FOR* Priority: E More... Ulcer of left foot ([facility]) [L97.529] INVALID FOR* Priority: M Paroxysmal SVT (supraventricular tachycardia) (*INVALID FOR* Priority: A More... Encounter Status:Closed by ANNE CHRISTENSEN MD on 10/17/17 EMERGENCY DEPARTMENT Observed: 10/14/2017 Status: F Source: [place] SUMMARY 10:47 PM [facility] REPOSITORY [facility] Medical Records Department [address] [place] [address] Emergency Department Summary 10/14/17 1920 MR#: [id number] Acct: [id number] Name: DEBBY BAILON Rep #: [id number] : 1980 36 From: Will Barcenas MD [...] she saw Dr. Fawn Coyne at the [facility] to have her hernia repaired. Due to her complicated prior abdominal surgery Dr. Coyne has referred her up to [facility] and they are actually going to [...] Treatment: Discharge to home. Follow-up with her [facility] appointment on Monday. Treatment Plan: [] Disposition: Discharge Impression: Acute on chronic abdominal pain History of umbilical hernia easily reducible History of spina bifida and neurogenic bladder This note was generated with [employer] software. It may contain incorrect words, spelling, [...] your Primary Care Provider. Call [facility] ([phone]) or report to the closest Emergency Room. Call 911 if necessary. 10/14/172246 <Electronically signed by Will Barcenas MD> Date Will Barcenas MD Cosigner Signature (If Indicated): Date CC: Will Dietz MD DISCHARGE INSTRUCTION Observed: 10/14/2017 Status: F Source: [place] 10:47 PM [facility] REPOSITORY [facility] Medical Records Department [address] [place] [address] Discharge Instruction 10/14/171922 MR#: [id number] Acct: [id number] Name: DEBBY BAILON Rep #: [id number] : 1980 36 From: Will Barcenas MD PCP: Will Dietz MD Status: DEP ER ED Disposition - Plan for ED Patient: Disposition: Home or Assisted Living Chief Complaint: Abd Pain Additional Instructions: Tylenol and/or Motrin for pain. Plenty of fluids such as salt water and fruits, vegetables and fiber for constipation. Follow-up with your [facility] appointment on Monday. Return to ER if increasing abdominal pain, distention, fever or intractable vomiting. Currently there are no signs of bowel obstruction. What to do if you have Problems For any increased pain, shortness of breath, bleeding, nausea or vomiting, chest pain, or any unexpected problems, contact your Primary Care Provider. Call [facility] ([phone]) or report to the closest Emergency Room. Call 911 if necessary. 10/14/172246 <Electronically signed by Will Barcenas MD> Date Will Barcenas MD Cosigner Signature (If Indicated): Date CC: Will Dietz MD COMP METABOLIC PANEL Collected: 10/10/2017 Status: F Source: [place] 2:36 PM [facility] REPOSITORY TYPE [...] mg/dL Glucose High 178 Result Comment: The Stateless Diabetes Association (ADA) provides guidance for cutoff [...] Standards of Medical Care in Diabetes 2016, Stateless Diabetes Association. Diabetes Care. 2016.39(Suppl 1). LAB [...] Performed By: #### CMP, LIPB, HBA1C #### [facility] [address] [place], [place] [address] LIPID PANEL, BASIC Collected: 10/10/2017 Status: F Source: [place] 2:36 PM [facility] REPOSITORY TYPE CODE TESTS RESULT OUT OF [...] Desk Reference: National Heart, Lung, and Blood [place]. National Institutes of Health. 2001: NIH Publication No. 01-3305. 2. An International Atherosclerosis Society position paper: global recommendations for the management of dyslipidemia: executive summary, Atherosclerosis. 2014: 232(2):410-413. Performed By: #### CMP, LIPB, HBA1C #### [facility] [address] [place], [place] [address] HEMOGLOBIN A1C Collected: 10/10/2017 Status: F Source: [place] 2:36 PM [facility] REPOSITORY TYPE CODE TESTS RESULT OUT OF REFERENCE UNITS RANGE LAB HGBA1C 4.3-5.6 % High Hemoglobin A1c 8.9 LAB HBA0 mg/dL Est. Average Glucose 209 Result Comment: eAG: (Estimated average glucose) is a calculated value from HgbA1c and is sales representative leather goods of the average blood glucose level in the last 2-3 month period. Performed By: #### CMP, LIPB, HBA1C #### [facility] [address] [place], [place] [address] PROGRESS Observed: 10/06/2017 Status: COMPLETED Source: [place] 8:21 PM [facility] REPOSITORY HNO ID: [id number] Author: Fawn Coyne Service: (none) Author Type: [...] thoracic - Dysthymic disorder Depression (non-psychotic), [facility] 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 Will refer patient to [facility] for second opinion. I have answered all questions to the patient?s satisfaction and the patient has no further questions. Greater than 50% of this patient encounter was dedicated to face to face discussion with the patient. Diagnoses: No diagnosis found. Fawn Coyne MD CNOV Observed: 10/05/2017 Status: COMPLETED Source: [place] 3:00 PM [facility] REPOSITORY Office Visit (GENSWS) DEBBY BAILON ([id number]) 1980 F Date Time Provider Department 10/05/17 [...] Mammogram screening? 07/2017 Last Colonoscopy: NONE Shanna CoyneFawn 10/06/2017 8:41 PM Signed Debby Bailon 1980 [...] thoracic - Dysthymic disorder Depression (non-psychotic), [facility] 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 - Lumbago 02/12/2015 - Migraine - Miscarriage - Morbid obesity (HCC) 02/12/2015 - Muscle weakness of left lower extremity 08/07/2013 - Neck pain 05/02/2013 - Neurogenic bladder 02/12/2015 - Neurogenic bladder - Neurogenic bowel 01/06/2016 - Neuropathy ([facility]) 02/12/2015 post back surgery with secondary infection. Seeing Dr. Gregg - Numbness and tingling of left arm and leg 08/07/2013 - Panic attacks - Recurrent UTI 11/28/2011 - Spina bifida ([facility]) 01/06/2016 - Type 2 diabetes mellitus without complication ([facility]) 02/12/2015 - Urinary tract infection, site not [...] directed, ulcer of left 1st metatarsal, measurement: 5kng7haw9lj, Dx: E11.621, L97.522 (Patient not taking: Reported [...] the Knapp stoma. Will refer patient to [facility] for second opinion. I have answered all questions to the patient?s satisfaction and the patient has no further questions. Greater than 50% of this patient encounter was dedicated to face to face discussion with the patient. Diagnoses: No diagnosis found. Fawn Coyne MD Referring Provider: MARIANA CORDERO I [[id number]] Allergies As of Date: 10/05/2017 Noted Allergy [...] Type 2 diabetes mellitus with proteinuria ([facility])*INVALID FOR* Priority: A Pyelonephritis [N12] INVALID FOR* Diabetic eye exam ([facility]) [Z01.00, E11.9] INVALID FOR* Priority: A More... Migraine without aura and without status migrai*INVALID FOR* Priority: A Type 2 diabetes mellitus with albuminuria ([facility])*INVALID FOR* Priority: A Well adult exam [Z00.00] INVALID FOR* Priority: E More... Ulcer of left foot ([facility]) [L97.529] INVALID FOR* Priority: M Paroxysmal SVT (supraventricular tachycardia) (*INVALID FOR* Priority: A More... Visit Notes: >> Shanna Joy LPN Gabby October 05, 2017 3:21 PM Status: Signed [...] LEAD ELECTROCARDIOGRAM Observed: 09/18/2017 Status: F Source: [place] 2:38 PM [facility] REPOSITORY [facility] Cardiovascular Services [address] [place] [address] 12 Lead EKG 09/15/17 1522 MR#: [id number] Acct: [id number] Name: DEBBY BAILON Rep #: [id number] : 1980 36 From: Jayson Alvarez MD [...] Normal ECG Confirmed by STEFANI FITZGERALD, JAYSON ([id number]), editor managing newspaper LYLA HAY ([id number]) on 09/18/2017 2:37:25 PM Referred By: Arnold Caban Confirmed By:JAYSON ALVAREZ MD 09/18/17 1434 Date Jayson Alvarez MD CC: Will Dietz MD; Arnold Wallace EMERGENCY DEPARTMENT Observed: 09/16/2017 Status: F Source: [place] SUMMARY 1:12 AM [facility] REPOSITORY [facility] Medical Records Department [address] [place] [address] Emergency Department Summary 09/15/17 1512 MR#: [id number] Acct: [id number] Name: DEBBY BAILON Rep #: [id number] : 1980 36 From: Arnold Brice PCP: [...] September. She was told to go to [facility] for evaluation 10 days ago, however unable to get a ride up that way. She has history of constipation. 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 She had a colonoscopy prior by surgeon [...] neurogenic bladder and has seen urology at [facility]. She reports that while she is [...] Umbilical hernia This note was generated with [employer] dictation software. It may contain incorrect words, [...] your Primary Care Provider. Call [facility] ([phone]) or report to the closest Emergency Room. Call 911 if necessary. 09/16/17 0112 <Electronically signed by Arnold Brice> Date Arnold Brice Cosigner Signature (If Indicated): Date CC: Will Dietz MD CBC W/DIFF, AUTOMATED Collected: 09/15/2017 Status: F Source: [place] 6:05 PM [facility] REPOSITORY TYPE CODE TESTS RESULT OUT [...] Lymph 3.01 Performed By: #### L100.0100 #### [facility] [place], [address] COMPREHENSIVE METABOLIC Collected: 09/15/2017 Status: F Source: [place] [facility] 6:05 PM [facility] REPOSITORY TYPE CODE TESTS RESULT OUT [...] 5 Performed By: #### L500.4050, L501.2450 #### [facility] [address] [place], [address] LIPASE Collected: 09/15/2017 Status: F Source: [place] 6:05 PM [facility] REPOSITORY TYPE CODE TESTS RESULT OUT OF RANGE REFERENCE UNITS LAB L501.2450 73-393 U/L Normal LIPASE 115 Performed By: #### L500.4050, L501.2450 #### [facility] [address] [facility] [place], [address] URINALYSIS, COMPLETE Collected: 09/15/2017 Status: F Source: [place] 3:55 PM [facility] REPOSITORY Order Comment: Order Date: 09/15/17 How was Urine Obtained? ORE CRUSHER TO SPECIFY TYPE CODE TESTS RESULT OUT [...] URINE SEEN Performed By: #### L400.0001 #### [facility] [address] [place], [address] ,URINE Collected: 09/15/2017 Status: F Source: [place] 3:55 PM [facility] REPOSITORY Order Comment: Order Date: 09/15/17 TYPE CODE TESTS RESULT OUT OF REFERENCE UNITS RANGE LAB L400.8000 Negative Normal HCGUQUAL Negative Result Comment: Very dilute urine specimens, as indicated by a low specific gravity, may not contain sales representative leather goods levels of hCG. If is still suspected, a first morning urine specimen should be collected 48 hours later and tested. Performed By: #### L400.7600 #### [facility] [address] [place], [address] ABDOMEN/PELVIS WITH Observed: 09/15/2017 Status: F Source: [place] CONTRAST 3:12 PM [facility] REPOSITORY [facility] Imaging Services [address] [place] [address] Abdomen/Pelvis WITH Contrast MR#: [id number] Acct: [id number] Name: DEBBY BAILON Rep #: [id number] : 1980 F 36 From: Lyla Xavier MD PCP: Will Dietz MD Status: REG ER Study: Abdomen/Pelvis WITH Contrast Date of Exam: 09/15/17 Exam# [id number] Ordering Dr: Arnold Caban DO CT Abdomen And Pelvis W/ Contrast INDICATION: ABD PAIN RADIATING INTO BACK, BLOATING, ABNORMAL BM X 2 MONTHSHX SPINAL BIFDA, CHOLECYSTECTOMY, KNAPP [facility] [place], NEUROGENIC BLADDER, KNOWN HERNIA COMPARISON: June 2016 [...] , CC: Will Dietz MD; Arnold Caban Shank Breaker: Signed PROGRESS Observed: 09/12/2017 Status: COMPLETED Source: [place] 10:24 AM [facility] REPOSITORY HNO ID: [id number] Author: Kevin Osorio Service: (none) Author Type: Physician Type: Progress Notes Filed: 09/12/2017 10:24 AM Note Text: Please see ultrasound report for details of this visit. Kevin Osorio M.D. EMERGENCY DEPARTMENT Observed: 08/26/2017 Status: F Source: [facility] 4:17 PM [facility] REPOSITORY [facility] Medical Records Department [address] [place] [address] Emergency Department Summary 08/22/17 2256 MR#: [id number] Acct: [id number] Name: DEBBY BAILON Rep #: [id number] : 1980 36 From: Nemesio Sanderson DO [...] Chronic constipation This note was generated with [employer] dictation software. It may contain incorrect words, [...] your Primary Care Provider. Call [facility] ([phone]) or report to the closest Emergency Room. Call 911 if necessary. 08/26/17 4244 <Electronically signed by Nemesio Sanderson DO> Date Nemesio Sanderson DO Cosigner Signature (If Indicated): Date CC: Will Dietz MD ACUTE ABDOMEN INC Observed: 08/22/2017 Status: F Source: [place] CHEST 10:38 PM [facility] REPOSITORY [facility] Imaging Services [address] [place] [address] Acute Abdomen Inc Chest MR#: [id number] Acct: [id number] Name: DEBBY BAILON Rep #: [id number] : 1980 F 36 From: Ki Ballesteros MD PCP: Will Dietz MD Status: REG ER Study: Acute Abdomen Inc Chest Date of Exam: 08/22/17 Exam# [id number] Ordering Dr: Nemesio Sanderson DO STUDY: X-RAY [...] CC: Nemesio Sanderson DO; Will Dietz MD Shank Breaker: Signed PROGRESS Observed: 08/12/2017 Status: COMPLETED Source: [place] 9:14 PM [facility] REPOSITORY HNO ID: [id number] Author: Gavin Gomez Service: (none) Author Type: [...] thoracic - Dysthymic disorder Depression (non-psychotic), [facility] 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 - Lumbago 02/12/2015 - Migraine - Miscarriage - Morbid obesity (HCC) 02/12/2015 - Muscle weakness of left lower extremity 08/07/2013 - Neck pain 05/02/2013 - Neurogenic bladder 02/12/2015 - Neurogenic bladder - Neurogenic bowel 01/06/2016 - Neuropathy ([facility]) 02/12/2015 post back surgery with secondary infection. Seeing Dr. Gregg - Numbness and tingling of left arm and leg 08/07/2013 - Panic attacks - Recurrent UTI 11/28/2011 - Spina bifida (HCC) 01/06/2016 - Type 2 diabetes mellitus without complication ([facility]) 02/12/2015 - Urinary tract infection, site not [...] directed, ulcer of left 1st metatarsal, measurement: 8nmn0icr2zg, Dx: E11.621, L97.522 lisinopril 2.5 mg tablet [...] DPM CNOV Observed: 08/11/2017 Status: COMPLETED Source: [place] 2:10 PM [facility] REPOSITORY Office Visit (PODIWS) DEBBY BAILON ([id number]) 1980 F Date Time Provider Department 08/11/17 2:10 PM GAVIN GOMEZ PODIWS During your visit today, we recorded the following information about you: Brittney Cook RN 08/11/2017 3:06 PM Signed Schedule with Lilly Villagran for diabetic shoes Lilly [facility] [address] [facility], [place] [address] PH: [phone] Gavin Gomez DPM 08/12/2017 9:34 PM Signed [...] thoracic - Dysthymic disorder Depression (non-psychotic), [facility] 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 - Lumbago 02/12/2015 - Migraine - Miscarriage - Morbid obesity (HCC) 02/12/2015 - Muscle weakness of left lower extremity 08/07/2013 - Neck pain 05/02/2013 - Neurogenic bladder 02/12/2015 - Neurogenic bladder - Neurogenic bowel 01/06/2016 - Neuropathy ([facility]) 02/12/2015 post back surgery with secondary infection. Seeing Dr. Gregg - Numbness and tingling of left arm and leg 08/07/2013 - Panic attacks - Recurrent UTI 11/28/2011 - Spina bifida (HCC) 01/06/2016 - Type 2 diabetes mellitus without complication ([facility]) 02/12/2015 - Urinary tract infection, site not specified Recurrent UTI's - Weakness of left upper extremity 08/07/2013 Current Outpatient Prescriptions: ciprofloxacin HCl (CIPRO) 250 mg tablet Take 500 mg by mouth twice daily. propranolol (INDERAL) 10 mg tablet Take 1 tablet by mouth twice daily. lancets (FREESTYLE LANCETS) [facility] Test blood sugar(s) 1-2 times daily. Dx: [...] directed, ulcer of left 1st metatarsal, measurement: [id number], Dx: E11.621, L97.522 lisinopril 2.5 mg tablet [...] Gavin Gomez DPM Referring Provider: GAVIN GOMEZ [[id number]] Allergies As of Date: 08/11/2017 Noted Allergy [...] (HCC) [E11.49] Order(s):DIAB SHOE FOR DENSITY INSERT [[id number]] Order #: [id number] Prescriptions as of 08/11/2017 Sig: CIPROFLOXACIN 250 [...] lower extr*INVALID FOR*01/06/2016 Priority: D Lipomeningocele ([facility]) [Q05.9] INVALID FOR* Priority: B Lumbago [M54.5] INVALID FOR* Priority: M Neuropathy ([facility]) [G62.9] INVALID FOR* Priority: A More... Morbid obesity ([facility]) [E66.01] INVALID FOR* Priority: B Chronic pain [G89.29] INVALID FOR* Priority: M Neurogenic bladder [N31.9] INVALID FOR* Priority: B Hydronephrosis, right [N13.30] INVALID FOR* Priority: C History of kidney stones [Z87.442] INVALID FOR* Priority: C Spina bifida ([facility]) [Q05.9] INVALID FOR* Priority: B Neurogenic bowel [K59.2] INVALID FOR* Priority: B Primary insomnia [F51.01] INVALID FOR* Priority: A Type 2 diabetes mellitus with proteinuria ([facility])*INVALID FOR* Priority: A Pyelonephritis [N12] INVALID FOR* Diabetic eye exam ([facility]) [E11.9, Z01.00] INVALID FOR* Priority: A More... Migraine without aura and without status migrai*INVALID FOR* Priority: A Type 2 diabetes mellitus with albuminuria ([facility])*INVALID FOR* Priority: A Well adult exam [Z00.00] INVALID FOR* Priority: E More... Ulcer of left foot ([facility]) [L97.529] INVALID FOR* Priority: M Paroxysmal SVT (supraventricular tachycardia) (*INVALID FOR* Priority: A More... Other instructions from your clinician: Schedule with [employer] for diabetic shoes [employer] [place] [address] [facility], [facility] [address] PH: [phone] Encounter Status:Closed by GAVIN GOMEZ DPM on 08/12/17 PROGRESS Observed: 08/08/2017 Status: COMPLETED Source: [place] 2:35 PM [facility] REPOSITORY HNO ID: [id number] Author: Naty Sharma Psr Service: (none) Author Type: (none) Type: Progress Notes Filed: 08/08/2017 2:35 PM Note Text: pap logged, letter sent. Naty Sharma Psr PROGRESS Observed: 08/04/2017 Status: COMPLETED Source: [place] 11:50 AM [facility] REPOSITORY HNO ID: [id number] Author: Arielle Richards Service: (none) Author Type: [...] WO IVCON Observed: 08/04/2017 Status: F Source: [facility] 11:50 AM [facility] REPOSITORY * * *Final Report* * * DATE OF EXAM: Aug 04 2017 11:50AM SUZANNE 0194 - MRI FOOT/TOES WO IVCON LT [...] WITHOUT UNDERLYING EVIDENCE OF OSTEOMYELITIS OR ABSCESS. Shank Breaker: [facility] Transcribe Date/Time: Aug 04 2017 12:08P Dictated by : RAMON ANDERSON MD This examination was interpreted and the report reviewed and electronically signed by: RAMON ANDERSON MD on Aug 04 2017 12:14PM EST [id number] CBC AND DIFFERENTIAL Collected: 08/04/2017 Status: F Source: [place] 10:13 AM [facility] REPOSITORY TYPE CODE TESTS RESULT OUT OF [...] k/uL Abs Lymph 2.81 LAB AMONO % [place]% 9.0 LAB AAMONO <0.87 k/uL Abs [place] High 1.03 LAB AEOS % Eosin% 3.8 LAB AAEOS <0.46 k/uL Abs Eosin 0.43 LAB ABASO % Baso% 0.8 LAB AABASO <0.11 k/uL Abs Baso 0.09 LAB AUNRBC 0 /100 WBC NRBCs 0.0 LAB ABNRBC <0.01 k/uL Absolute nRBC <0.01 LAB DTYP DTYPE Auto Diff Performed By: #### CBCDIF, WSR, CRP #### [facility] [address] [place] [address] SED RATE WESTERGREN Collected: 08/04/2017 Status: F Source: [place] 10:13 AM [facility] REPOSITORY TYPE CODE TESTS RESULT OUT OF REFERENCE UNITS RANGE LAB WSR 0-20 mm/hr Sed Rate High Westergren 27 Performed By: #### CBCDIF, WSR, CRP #### [place] [address] C-REACTIVE PROTEIN Collected: 08/04/2017 Status: F Source: [place] 10:13 AM [facility] REPOSITORY TYPE CODE TESTS RESULT OUT OF REFERENCE UNITS RANGE LAB CRP <0.9 mg/dL C-Reactive 0.6 Protein Performed By: #### CBCDIF, WSR, CRP #### [place] [address] PROGRESS Observed: 08/02/2017 Status: COMPLETED Source: [place] 10:24 AM [facility] REPOSITORY HNO ID: [id number] Author: Gavin Gomez Service: (none) Author Type: [...] thoracic - Dysthymic disorder Depression (non-psychotic), [facility] 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 - Lumbago 02/12/2015 - Migraine - Miscarriage - Morbid obesity (HCC) 02/12/2015 - Muscle weakness of left lower extremity 08/07/2013 - Neck pain 05/02/2013 - Neurogenic bladder 02/12/2015 - Neurogenic bladder - Neurogenic bowel 01/06/2016 - Neuropathy ([facility]) 02/12/2015 post back surgery with secondary infection. Seeing Dr. Gregg - Numbness and tingling of left arm and leg 08/07/2013 - Panic attacks - Recurrent UTI 11/28/2011 - Spina bifida (HCC) 01/06/2016 - Type 2 diabetes mellitus without complication ([facility]) 02/12/2015 - Urinary tract infection, site not [...] twice daily. lancets (FREESTYLE LANCETS) [facility] Test blood sugar(s) 1-2 times daily. Dx: [...] directed, ulcer of left 1st metatarsal, measurement: 6vyr4fjm3tb, Dx: E11.621, L97.522 lisinopril 2.5 mg tablet [...] DPM CNOV Observed: 08/02/2017 Status: COMPLETED Source: [place] 8:40 AM [facility] REPOSITORY Office Visit (PODIWS) DEBBY BAILON ([id number]) 1980 F Date Time Provider Department 08/02/17 [...] thoracic - Dysthymic disorder Depression (non-psychotic), [facility] 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 - Lumbago 02/12/2015 - Migraine - Miscarriage - Morbid obesity (HCC) 02/12/2015 - Muscle weakness of left lower extremity 08/07/2013 - Neck pain 05/02/2013 - Neurogenic bladder 02/12/2015 - Neurogenic bladder - Neurogenic bowel 01/06/2016 - Neuropathy ([facility]) 02/12/2015 post back surgery with secondary infection. Seeing Dr. Gregg - Numbness and tingling of left arm and leg 08/07/2013 - Panic attacks - Recurrent UTI 11/28/2011 - Spina bifida (HCC) 01/06/2016 - Type 2 diabetes mellitus without complication ([facility]) 02/12/2015 - Urinary tract infection, site not [...] twice daily. lancets (FREESTYLE LANCETS) [facility] Test blood sugar(s) 1-2 times daily. Dx: [...] directed, ulcer of left 1st metatarsal, measurement: 5tmi9xcg5dk, Dx: E11.621, L97.522 lisinopril 2.5 mg tablet [...] Gavin Gomez DPM Referring Provider: GAVIN GOMEZ [[id number]] Allergies As of Date: 08/02/2017 Noted Allergy [...] [E11.49] Order(s):CBC + DIFF [SQCBCDIF] Order #: [id number] FUTURE SED RATE WESTERGREN [SQWSR] Order #: [id number] FUTURE C-REACTIVE PROTEIN (CRP) [SQCRP] Order #: [id number] FUTURE MRI FOOT/TOES WO IVCON LT [[id number]] Order #: [id number] FUTURE Prescriptions as of 08/02/2017 Sig: METRONIDAZOLE [...] Type 2 diabetes mellitus with proteinuria ([facility])*INVALID FOR* Priority: A Pyelonephritis [N12] INVALID FOR* Diabetic eye exam ([facility]) [E11.9, Z01.00] INVALID FOR* Priority: A More... Migraine without aura and without status migrai*INVALID FOR* Priority: A Type 2 diabetes mellitus with albuminuria ([facility])*INVALID FOR* Priority: A Well adult exam [Z00.00] INVALID FOR* Priority: E More... Ulcer of left foot ([facility]) [L97.529] INVALID FOR* Priority: M Paroxysmal SVT [...] on 08/02/17 Observed: 07/28/2017 Status: F Source: [place] TRICHOMONAS PREP 2:33 PM [facility] REPOSITORY Sp. Request/Comment: - Swab Smear Result - Negative for Trichomonas vaginalis antigen This test was developed and its performance characteristics determined by [facility] [place] ([facility]). It has not been cleared or approved by the FDA. [facility] is regulated under CLIA as qualified to perform high-complexity testing. This test is used for clinical purposes. It should not be regarded as investigational or for research. Performed By: #### TRICHO #### [facility] [address] [place], [place] [address] Observed: 07/28/2017 Status: F Source: [place] BACT/CAND VAG GRM ST 2:33 PM [facility] REPOSITORY Sp. Request/Comment: - Swab Smear Result - BACTERIAL VAGINOSIS RESULT: Stain results consistent with bacterial vaginosis. --> ABNORMAL ALERT No Yeast observed No Polymorphonuclear leukocytes Performed By: #### BVCNSM #### [facility] [address] [place], [place] [address] CYTOLOGY Observed: 07/28/2017 Status: C Source: [place] 2:33 [facility] REPOSITORY ADDITIONAL PROCEDURES PRESENT Specimen originated from [facility] Specimen #: [id number] Submitting Physician: MEGAN AMADOR CNM SPECIMEN SUBMITTED [...] from every slide are reviewed by a tile trimmer. TIGIST Pisano(ASCP) (Electronic Signature) ADDITIONAL PROCEDURE(S) HUMAN PAPILLOMA VIRUS Date Ordered: 08/01/2017 Date Reported: 08/02/2017 Procedure Results and Interpretation Negative for HPV DNA high risk type 16 by PCR. Negative for HPV DNA high risk type 18 by PCR. Negative for HPV DNA high risk types: 31,33,35,39,45,51,52,56,58,59,66,68 by PCR. This test was developed and its performance characteristics determined by [facility] and Laboratory [facility] [place] ([facility]). It has not been cleared or approved by the FDA. [facility] is regulated under CLIA as qualified to perform high-complexity testing. This test is used for clinical purposes. It should not be regarded as investigational or for research. CLINICAL DATA ROUTINE EXAM, HPV Testing: Yes, automatic HPV patients over 30 Date of Last Menstrual Period: 07/14/2017 STAINS A: CERVICAL, SCREENING, FLUID THIN PREP [employer]OPLESO[employer] DEVELOPER Taya Sierra M.D., Level Vial Marker Date of Report: 08/08/2017 Date of Procedure: 07/28/2017 Date of Receipt: 08/01/2017 Submitted by: MEGAN AMADOR CNM Location: [facility] Diagnostic interpretation performed at [facility], [address] [place] [address]. The Pap Smear is a screening test for cervical cancer. False negative results occur with all screening tests, emphasizing the need for rescreening at recommended intervals, and clinical correlation. PROGRESS Observed: 07/28/2017 Status: COMPLETED Source: [place] 2:02 PM [facility] REPOSITORY HNO ID: [id number] Author: Megan Amador Service: (none) Author Type: Crm Solution Architect Type: Progress Notes Filed: 07/28/2017 5:32 PM [...] thoracic - Dysthymic disorder Depression (non-psychotic), [facility] - Insomnia - Lipomeningocele, sacral level [...] external genitalia normal, normal Bartholin's glands, urethra, San Simon's glands, no vulvar lesions, no cervical lesions, [...] GC/CHLAMYDIA AMPLIF Collected: 07/28/2017 Status: F Source: [place] 1:56 PM [facility] REPOSITORY TYPE CODE TESTS RESULT OUT OF REFERENCE UNITS RANGE LAB GCCTSR GC/Chlam Amp Cervix Source LAB GCAMPL GC Negative Amplification for Neisseria gonorrhoeae by amplification. LAB CLAMPL Chlamydia Negative Amplif for Chlamydia trachomatis by amplification. 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 - Lumbago 02/12/2015 - Migraine - Miscarriage - Morbid obesity (HCC) 02/12/2015 - Muscle weakness of left lower extremity 08/07/2013 - Neck pain 05/02/2013 - Neurogenic bladder 02/12/2015 - Neurogenic bladder - Neurogenic bowel 01/06/2016 - Neuropathy ([facility]) 02/12/2015 post back surgery with secondary infection. Seeing Dr. Gregg - Numbness and tingling of left arm and leg 08/07/2013 - Panic attacks - Recurrent UTI 11/28/2011 - Spina bifida (HCC) 01/06/2016 - Type 2 diabetes mellitus without complication ([facility]) 02/12/2015 - Urinary tract infection, site not [...] external genitalia normal, normal Bartholin's glands, urethra, [place] Simon's glands, no vulvar lesions, no cervical lesions, [...] 10:47 AM Modules accepted: Orders Naty Sharma Pslamar 08/08/2017 2:35 PM Signed pap logged, letter sent. Naty Sharma Psr Referring Provider: WILL DIETZ [[id number]] Allergies As of Date: 07/28/2017 Noted Allergy [...] Irregular menses [N92.6] Order(s):PAP FLUID CERVICAL SCREENING [[id number]] Order #: [id number]. #:[id number] BACT/NANO VAG GRAM STAIN [SQBVCNSM] Order #: [id number] FUTURE GC/CHLAMYDIA DNA DET [SQGCCAMP] Order #: [id number]. #:[id number] TRICHOMONAS PREP [SQTRICHO] Order #: [id number]. #:[id number] CBC + DIFF [SQCBCDIF] Order #: [id number] FUTURE PROLACTIN BLD [SQPROL] Order #: [id number] FUTURE TSH BLD [SQTSH] Order #: [id number] FUTURE HPV W/GENOTYPE [SQHPVHRR] Order #: [id number]. #:[id number] Prescriptions as of 07/28/2017 Sig: CIPROFLOXACIN 250 [...] lower extr*INVALID FOR*01/06/2016 Priority: D Lipomeningocele ([facility]) [Q05.9] INVALID FOR* Priority: B Lumbago [M54.5] INVALID FOR* Priority: M Neuropathy ([facility]) [G62.9] INVALID FOR* Priority: A More... Morbid obesity ([facility]) [E66.01] INVALID FOR* Priority: B Chronic pain [G89.29] INVALID FOR* Priority: M Neurogenic bladder [N31.9] INVALID FOR* Priority: B Hydronephrosis, right [N13.30] INVALID FOR* Priority: C History of kidney stones [Z87.442] INVALID FOR* Priority: C Spina bifida ([facility]) [Q05.9] INVALID FOR* Priority: B Neurogenic bowel [K59.2] INVALID FOR* Priority: B Primary insomnia [F51.01] INVALID FOR* Priority: A Type 2 diabetes mellitus with proteinuria ([facility])*INVALID FOR* Priority: A Pyelonephritis [N12] INVALID FOR* Diabetic eye exam ([facility]) [E11.9, Z01.00] INVALID FOR* Priority: A More... Migraine without aura and without status migrai*INVALID FOR* Priority: A Type 2 diabetes mellitus with albuminuria ([facility])*INVALID FOR* Priority: A Well adult exam [Z00.00] [...] Follow-up and Disposition History Recorded Letter Text [facility] [address] [place], [place] [address] Debby Bailon [address] [facility] [address] 08/08/2017 [facility]: [id number] Dear Debby, We are pleased to inform [...] a.m. and 5:00 p.m. Sincerely, Megan Amador [facility] Encounter Status:Closed by MEGAN AMADOR on 07/28/17 HPV W/GENOTYPE Collected: 07/28/2017 Status: F Source: [place] 4:56 AM [facility] REPOSITORY TYPE CODE [...] developed and its performance characteristics determined by [facility] [place] ([facility]). It has not been cleared or approved by the FDA. [facility] is regulated under CLIA as qualified to perform high-complexity testing. This test is used for clinical purposes. It should not be regarded as inv estigational or for research. Performed By: #### HPVHRR #### [facility] [address] [place] [id number] PROGRESS Observed: 07/27/2017 Status: COMPLETED Source: [place] 12:34 PM [facility] REPOSITORY HNO ID: [id number] Author: Maranda Echeverria Ma Service: (none) Author Type: (none) Type: Progress Notes Filed: 07/27/2017 12:35 PM Note Text: L foot ulcer irrigated with betadine saline solution. Applied Praveena to ulcer. Covered with 4x4 and herson. Patient given diabetic offloading shoe with peg assist insert. Maranda Echeverria Ma CBC AND DIFFERENTIAL Collected: 07/27/2017 Status: F Source: [place] 11:52 AM [facility] REPOSITORY TYPE CODE TESTS RESULT OUT OF [...] k/uL Abs Lymph 2.63 LAB AMONO % [place]% 9.4 LAB AAMONO <0.87 k/uL Abs [place] High 1.05 LAB AEOS % Eosin% 2.6 LAB AAEOS <0.46 k/uL Abs Eosin 0.29 LAB ABASO % Baso% 0.9 LAB AABASO <0.11 k/uL Abs Baso 0.10 LAB AUNRBC 0 /100 WBC NRBCs 0.0 LAB ABNRBC <0.01 k/uL Absolute nRBC <0.01 LAB DTYP DTYPE Auto Diff Performed By: #### CBCDIF, CRP, WSR #### [place] [address] C-REACTIVE PROTEIN Collected: 07/27/2017 Status: F Source: [place] 11:52 AM [facility] REPOSITORY TYPE CODE TESTS RESULT OUT OF REFERENCE UNITS RANGE LAB CRP <0.9 mg/dL High C-Reactive 0.9 Protein Performed By: #### CBCDIF, CRP, WSR #### [place] [address] SED RATE WESTERGREN Collected: 07/27/2017 Status: F Source: [place] 11:52 AM [facility] REPOSITORY TYPE CODE TESTS RESULT OUT OF REFERENCE UNITS RANGE LAB WSR 0-20 mm/hr Sed Rate High Westergren 40 Performed By: #### CBCDIF, CRP, WSR #### [place] [address] PROLACTIN Collected: 07/27/2017 Status: F Source: [place] 11:52 AM [facility] REPOSITORY TYPE CODE TESTS RESULT OUT OF REFERENCE UNITS RANGE LAB PROL 4.5-26.8 ng/mL Prolactin 18.7 Performed By: #### PROL, TSH #### [place] [address] TSH Collected: 07/27/2017 Status: F Source: [place] 11:52 AM [facility] REPOSITORY TYPE CODE TESTS RESULT OUT OF [...] Clinical Practice Guideline. J Clin Endocrinol Metab, 2012:97:[id number]. 2. Jez [place]. Overview of thyroid disease in . UpToDate. 2016. Accessed on November 13, 2015. Performed By: #### PROL, TSH #### [facility] [address] [place], [place] [address] XR FOOT 3V AP/LAT/OBL Observed: 07/27/2017 Status: F Source: [facility] 11:38 AM [facility] REPOSITORY * * *Final Report* * * [...] FIFTH METATARSAL. HALLUX VALGUS WITH BUNION DEFORMITY. Shank Breaker: PSCB Transcribe Date/Time: Jul 27 2017 12:52P Dictated by : OG BRIDGES MD This examination was interpreted and the report reviewed and electronically signed by: OG BRIDGES MD on Jul 27 2017 12:54PM EST [id number] PROGRESS Observed: 07/27/2017 Status: COMPLETED Source: [place] 11:32 AM [facility] REPOSITORY HNO ID: [id number] Author: Morena Moran (Rt) Amee Burnette Service: (none) Author Type: Motor Checker Type: Progress Notes Filed: 07/27/2017 11:39 AM [...] AM PROGRESS Observed: 07/27/2017 Status: COMPLETED Source: [place] 10:44 AM [facility] REPOSITORY O ID: [id number] Author: Gavin Gomez Service: (none) Author Type: [...] Depressive disorder, not elsewhere classified 11/28/2011 [facility] - DJD (degenerative joint disease), thoracic - Dysthymic disorder Depression (non-psychotic), [facility] 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 - Lumbago 02/12/2015 - Migraine - Morbid obesity (HCC) 02/12/2015 - Muscle weakness of left lower extremity 08/07/2013 - Neck pain 05/02/2013 - Neurogenic bladder 02/12/2015 - Neurogenic bladder - Neurogenic bowel 01/06/2016 - Neuropathy ([facility]) 02/12/2015 post back surgery with secondary infection. Seeing Dr. Gregg - Numbness and tingling of left arm and leg 08/07/2013 - Panic attacks - Recurrent UTI 11/28/2011 - Spina bifida ([facility]) 01/06/2016 - Type 2 diabetes mellitus without complication ([facility]) 02/12/2015 - Urinary tract infection, site not [...] directed, ulcer of left 1st metatarsal, measurement: [id number], Dx: E11.621, L97.522 lisinopril 2.5 mg tablet [...] ERIC Boland Observed: 07/27/2017 Status: COMPLETED Source: [place] 10:25 AM [facility] REPOSITORY Office Visit (PODIWS) DEBBY BAILON ([id number]) 1980 F Date Time Provider Department 07/27/17 [...] Depressive disorder, not elsewhere classified 11/28/2011 [facility] - DJD (degenerative joint disease), thoracic - Dysthymic disorder Depression (non-psychotic), [facility] 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 - Lumbago 02/12/2015 - Migraine - Morbid obesity ([facility]) 02/12/2015 - Muscle weakness of left lower extremity 08/07/2013 - Neck pain 05/02/2013 - Neurogenic bladder 02/12/2015 - Neurogenic bladder - Neurogenic bowel 01/06/2016 - Neuropathy ([facility]) 02/12/2015 post back surgery with secondary infection. Seeing Dr. Gregg - Numbness and tingling of left arm and leg 08/07/2013 - Panic attacks - Recurrent UTI 11/28/2011 - Spina bifida ([facility]) 01/06/2016 - Type 2 diabetes mellitus without complication ([facility]) 02/12/2015 - Urinary tract infection, site not [...] directed, ulcer of left 1st metatarsal, measurement: 7hgy8fid0ml, Dx: E11.621, L97.522 lisinopril 2.5 mg tablet [...] Maranda Echeverria Ma Referring Provider: WILL DIETZ [[id number]] Allergies As of Date: 07/27/2017 Noted Allergy Reaction MRI CONTRAST (GADOLINIUM-CONTAINI*01/03/2017 8 - GI Upset MUSHROOM 06/10/2016 10 - Anaphylaxis PEANUTS 06/10/2016 10 - Anaphylaxis Date Reviewed: 07/27/2017 Reviewed by: Brittney Cook RN - Fully Assessed Reason for Visit: Callus [Other] Primary Visit Diagnosis:Ulcer of toe of left foot, with fat layer exposed (HCC) [L97.522] Order(s):XR FOOT GENERAL 3V AP/LAT/OBL LT [7141336] Order #: [id number] FUTURE KNEE WALKER [[id number]] Order #: [id number] CBC + DIFF [SQCBCDIF] Order #: [id number] FUTURE SED RATE WESTERGREN [SQWSR] Order #: [id number] FUTURE C-REACTIVE PROTEIN (CRP) [SQCRP] Order #: [id number] FUTURE Prescriptions as of 07/27/2017 Sig: CIPROFLOXACIN [...] lower extr*INVALID FOR*01/06/2016 Priority: D Lipomeningocele ([facility]) [Q05.9] INVALID FOR* Priority: B Lumbago [M54.5] INVALID FOR* Priority: M Neuropathy ([facility]) [G62.9] INVALID FOR* Priority: A More... Morbid obesity ([facility]) [E66.01] INVALID FOR* Priority: B Chronic pain [G89.29] INVALID FOR* Priority: M Neurogenic bladder [N31.9] INVALID FOR* Priority: B Hydronephrosis, right [N13.30] INVALID FOR* Priority: C History of kidney stones [Z87.442] INVALID FOR* Priority: C Spina bifida ([facility]) [Q05.9] INVALID FOR* Priority: B Neurogenic bowel [K59.2] INVALID FOR* Priority: B Primary insomnia [F51.01] INVALID FOR* Priority: A Type 2 diabetes mellitus with proteinuria ([facility])*INVALID FOR* Priority: A Pyelonephritis [N12] INVALID FOR* Diabetic eye exam ([facility]) [E11.9, Z01.00] INVALID FOR* Priority: A More... [...] EMERGENCY DEPARTMENT Observed: 07/25/2017 Status: F Source: [place] SUMMARY 11:33 AM [facility] REPOSITORY [facility] Medical Records Department [address] [place] [address] Emergency Department Summary 07/25/17 1130 MR#: [id number] Acct: [id number] Name: DEBBY BAILON Rep #: [id number] : 1980 36 From: Bobby Lee MD [...] Impression: Constipation This note was generated with [employer] dictation software. It may contain incorrect words, [...] your Primary Care Provider. Call [facility] ([phone]) or report to the closest Emergency Room. Call 911 if necessary. 07/25/17 1133 <Electronically signed by Bobby Lee MD> Date Bobby Lee MD Cosigner Signature (If Indicated): Date CC: Will Dietz MD DISCHARGE INSTRUCTION Observed: 07/25/2017 Status: F Source: [place] 11:33 AM [facility] REPOSITORY [facility] Medical Records Department [address] [place] [address] Discharge Instruction 07/25/17 1133 MR#: [id number] Acct: [id number] Name: DEBBY BAILON Rep #: [id number] : 1980 36 From: Bobby Lee MD [...] your Primary Care Provider. Call [facility] ([phone]) or report to the closest Emergency Room. Call 911 if necessary. 07/25/17 1133 <Electronically signed by Bobby Lee MD> Date Bobby Lee MD Cosigner Signature (If Indicated): Date CC: Will Dietz MD CBC W/DIFF, AUTOMATED Collected: 07/25/2017 Status: F Source: [place] 10:27 AM [facility] REPOSITORY TYPE CODE TESTS RESULT OUT [...] Lymph 2.18 Performed By: #### L100.0100 #### [facility] [address] [place], [address] COMPREHENSIVE METABOLIC Collected: 07/25/2017 Status: F Source: [facility] 10:27 AM [facility] REPOSITORY TYPE CODE TESTS RESULT OUT [...] 4 Performed By: #### L500.4050, L501.2450 #### [facility] [address] [place], [address] LIPASE Collected: 07/25/2017 Status: F Source: [place] 10:27 AM [facility] REPOSITORY TYPE CODE TESTS RESULT OUT OF RANGE REFERENCE UNITS LAB L501.2450 73-393 U/L Normal LIPASE 173 Performed By: #### L500.4050, L501.2450 #### [facility] [address] [place], [address] ,URINE Collected: 07/25/2017 Status: F Source: [place] 10:20 AM [facility] REPOSITORY Order Comment: Order Date: 07/25/17 TYPE CODE TESTS RESULT OUT OF REFERENCE UNITS RANGE LAB L400.8000 Negative Normal HCGUQUAL Negative Result Comment: Very dilute urine specimens, as indicated by a low specific gravity, may not contain sales representative leather goods levels of hCG. If is still suspected, a first morning urine specimen should be collected 48 hours later and tested. Performed By: #### L400.7600 #### [facility] [address] [place], [place], [address] URINALYSIS, COMPLETE Collected: 07/25/2017 Status: F Source: [place] 10:20 AM [facility] REPOSITORY Order Comment: Order Date: 07/25/17 How [...] URINE SEEN Performed By: #### L400.0001 #### [facility] [address] [facility] [place], [address] ACUTE ABDOMEN INC Observed: 07/25/2017 Status: F Source: [place] CHEST 10:15 AM [facility] REPOSITORY [facility] Imaging Services [address] [place] [address] Acute Abdomen Inc Chest MR#: [id number] Acct: [id number] Name: DEBBY BAILON Rep #: [id number] : 1980 F 36 From: Stephan Sood MD PCP: Will Dietz MD Status: REG ER Study: Acute Abdomen Inc Chest Date of Exam: 07/25/17 Exam# [id number] Ordering Dr: Bobby Lee MD STUDY: X-RAY [...] Stephan Sood MD at 11:15 EST Tel [phone], Service support , CC: Will Dietz MD; Bobby Lee MD Shank Breaker: Signed EMERGENCY DEPARTMENT Observed: 07/22/2017 Status: F Source: [place] SUMMARY 6:43 PM [facility] REPOSITORY [facility] Medical Records Department [facility] [place] [address] Emergency Department Summary 07/22/17 1756 MR#: [id number] Acct: [id number] Name: DEBBY BAILON Rep #: [id number] : 1980 36 From: Dre Deal MD PCP: Will Dietz MD Status: REG ER - ER Visit Summary Date of Service: 07/22/17 Chief Complaint: Left foot pain radiating to knee and urinary symptoms History of Present Illness: The patient is a 36 F who was seen earlier this week for left foot pain. She states she has an appointment with her list of first job ideas. She denies fever, chills night sweats. She [...] her callus. Treatment Plan: Keep appointment with list of [employer] job [employer] and if she continues to have urologic symptoms follow-up with her primary care physician Dr. Will Dietz Disposition: Discharge to home Impression: 1. Left foot pain secondary to callus plantar surface 2. Hyperglycemia in type II diabetic This note was generated with [employer] dictation software. It may contain incorrect words, spelling, and punctuation that were not noted in review of the chart prior to signing ED Disposition - Plan for ED Patient: Disposition: Home or Assisted Living Chief Complaint: Wound Instructions: Treating Corns and Calluses, ED Hyperglycemia Diabetic Referrals: Will Dietz MD [Primary Care Provider] - As Needed Additional Instructions: Keep appointment with list of [employer] job [employer] to remove your callus. What to do if you have Problems For any increased pain, shortness of breath, bleeding, nausea or vomiting, chest pain, or any unexpected problems, contact your Primary Care Provider. Call [facility] ([phone]) or report to the closest Emergency Room. Call 911 if necessary. 07/22/17 8189 <Electronically signed by Dre Deal MD> Date Dre Deal MD Cosigner Signature (If Indicated): Date CC: Will Dietz MD BEDSIDE GLUCOSE Collected: 07/22/2017 Status: F Source: [place] 6:39 PM [facility] REPOSITORY TYPE CODE TESTS RESULT OUT OF REFERENCE UNITS RANGE LAB L501.080 70-110 mg/dL High BEDSIDE GLU 187 Result Comment: MANAGEMENT OF PATIENT CARE PER NURSING PROTOCOL Performed By: #### L501.080 #### [facility] Point of Care [address] [place], [place] [address] URINALYSIS, COMPLETE Collected: 07/22/2017 Status: F Source: [place] 6:00 PM [facility] REPOSITORY Order Comment: Order Date: 07/22/17 Has [...] URINE SEEN Performed By: #### L400.0001 #### [facility] [address] [place], [address] EMERGENCY DEPARTMENT Observed: 07/19/2017 Status: F Source: [place] SUMMARY 2:52 AM [facility] REPOSITORY [facility] Medical Records Department [address] [place] [address] Emergency Department Summary 07/18/17 1510 MR#: [id number] Acct: [id number] Name: DEBBY BAILON Rep #: [id number] : 1980 36 From: Celine Caputo MD [...] strict foot care and follow-up with her list of first job ideas in the next 3 days. Disposition: Discharge Impression: 1. Diabetic foot wound This note was generated with [employer] dictation software. It may contain incorrect words, spelling, and punctuation that were not noted in review of the chart prior to signing ED Disposition - Plan for ED Patient: Chief Complaint: Wound Diagnosis: Wound, open, foot Instructions: ED Foot Care Diabetic Prescriptions: Ciprofloxacin [Cipro] 500 mg PO BID #14 tab Additional Instructions: Followup with your list of first job ideas within the next 3 days What to do if you have Problems For any increased pain, shortness of breath, bleeding, nausea or vomiting, chest pain, or any unexpected problems, contact your Primary Care Provider. Call [facility] ([phone]) or report to the closest Emergency Room. Call 911 if necessary. 07/19/17 0252 <Electronically signed by Celine Caputo MD> Date Celine Caputo MD Cosigner Signature (If Indicated): Date CC: Will Dietz MD STRESS TEST ECHO W/O Observed: 07/18/2017 Status: F Source: [place] CONTRAST 5:32 PM [facility] REPOSITORY [facility] Cardiovascular Services [address] [place] [address] Stress Test Echo W/Contrast MR#: [id number] Acct: [id number] Name: DEBBY BAILON Rep #: [id number] : 1980 36 From: Jayson Alvarez MD [...] Performed By: Nicole Price, [place], RVT 07/18/17 173 Date Jayson Alvarez MD CC: Will Dietz MD Date Dictated: 07/18/17 1303 Date Transcribed: 07/18/171730 Shank Breaker: Signed ECHOCARDIOGRAM COMPLETE Observed: 06/28/2017 Status: F Source: [place] 2:20 PM [facility] REPOSITORY [facility] Cardiovascular Services [address] [place] [address] Echo Complete 06/28/17 1057 MR#: [id number] Acct: [id number] Name: DEBBY BAILON Rep #: [id number] : 1980 36 From: Nemesio Barriga MD Attending Dr: Will Dietz MD Status: REG CLI Ordering Dr: Will Dietz MD Date: 06/28/17 Location: [facility] Sex: F C Admitted: Reason For [...] Performed By: Nicole Price RDCS, RVT 06/28/17 1410 Date Nemesio Barriga MD CC: Will Dietz MD Date Dictated: 06/28/17 1057 Date Transcribed: 06/28/171418 Shank Breaker: Signed ALLERGIES ALLERGIES DATE TYPE / CODE NAME / CODE REACTION SEVERITY SOURCE 06/15/2018 Drug Gadolinium-MRI Vomiting Unknown [place] Allergy/416 Contrast Community 013870(SNOM Medium/P7916026 Hospital ED CT) 59(RXNORM) Repository 06/15/2018 Drug peanut/B2533201 Anaphylaxis Unknown [place] Allergy/416 68(RXNORM) Community 372908([facility] ED CT) Repository 06/15/2018 Drug mushroom/S00971 Anaphylaxis Unknown [place] Allergy/416 6188(RXNORM) Community 981648([facility] ED CT) Repository 01/03/2017 Drug GADOLINIUM-CONT GI UPSET Low [facility] Class/28440 AINING CONTRAST [facility] 1003(SNOMED MEDIA Repository CT) 01/03/2017 Drug GADOLINIUM-CONT GI UPSET [facility] Class/12908 AINING CONTRAST [facility] 1003(SNOMED MEDIA Repository CT) 06/10/2016 DRUG MUSHROOM ANAPHYLAXIS High [facility] INGREDI/419 [facility] 615801(SNOM Repository ED CT) 06/10/2016 Food/501005 PEANUTS ANAPHYLAXIS [facility] 000(SNOMED [facility]) Repository 06/10/2016 DRUG MUSHROOM ANAPHYLAXIS [facility] INGREDI/419 [facility] 397043(SNOM Repository ED CT) 06/10/2016 Food/347997 PEANUTS ANAPHYLAXIS [facility] 000(SNOMED [facility]) Repository 08/13/2015 DRUG MUSHROOM [facility] INGREDI/419 EXTRACT COMPLEX Hospital 312169(SNOM Repository ED CT) 08/06/2015 DRUG PEANUT ALLERGY [facility] INGREDI/419 Hospital 802067(SNOM Repository ED CT) NG/72711517 GADOLINIUM-CONT [facility] 6(SNOMED [facility] CONTRAST Health [facility]) MEDIA Repository NG/80452138 MUSHROOM [facility] 6([facility]) Repository NG/20047527 PEANUTS [facility] 6([facility]) Repository ENCOUNTERS ENCOUNTERS ADMIT/DISCHARGE ACCOUNT NUMBER ADMITTING ENCOUNTER LOCATION SOURCE CLASS 06/18/2018/06/18/19 [id number] Ambulatory [address] [place] Repository 06/15/2018/06/15/19 [id number] Emergency [place] ding:ED Repository 06/05/2018/06/05/19 [id number] Emergency [place] ding:ED Repository 05/25/2018/05/25/20 [id number] Emergency BBuilding:ER [place] [address] [place] [address] Repository 05/11/2018/05/11/20 [id number] Emergency [place] ding:ED Repository 05/09/2018/05/10/20 [id number] Ambulatory [address] Repository 05/03/2018/05/04/20 [id number] Ambulatory [address] Repository 04/30/2018/04/30/20 [id number] Ambulatory [address] Repository 04/26/2018/05/01/20 [id number] Ambulatory [address] Repository 04/24/2018/04/24/20 [id number] Emergency [place] ding:ED Repository 04/23/2018/04/23/20 [id number] Emergency [place] Norma[address] ding:ED Repository 04/14/2018/04/14/20 [id number] Emergency [place] ding:ED Repository 04/13/2018/04/13/20 [id number] Emergency [place] ding:ED Repository 04/11/2018/04/12/20 [id number] [place], Ambulatory [place] Norma [address] [place] [address] ding:JC0Sjvh Repository : QV496Ifx: 1 04/11/2018 [id number] [place], Ambulatory BMSBuilding: [place] [facility] hospital Repository 04/11/2018 [id number] [place], Ambulatory BMSBuilding: [place] [facility] hospital Repository 04/09/2018/04/09/20 [id number] Emergency [place] ding:ED Repository 04/04/2018/04/05/20 [id number] Ambulatory [address] Repository 03/23/2018 [id number] [facility] 03/22/2018/03/23/20 [id number] Emergency [place] ding:ED Repository 03/19/2018/03/20/20 [id number] Emergency [place] Norma[address] ding:ED Repository 03/15/2018/03/15/20 [id number] Ambulatory [address] Repository 03/15/2018/03/15/20 [id number] Ambulatory [address] Repository 03/15/2018/03/15/20 [id number] Ambulatory [address] Repository 03/15/2018/03/15/20 [id number] Ambulatory [address] Repository 03/14/2018/03/14/20 [id number] Emergency [place] ding:ED Repository 03/07/2018/03/08/20 [id number] Ambulatory [address] Repository 03/06/2018/03/07/20 [id number] Emergency [place] ding:ED Repository 03/03/2018/03/03/20 [id number] Emergency [place] ding:ED Repository 02/28/2018/03/01/20 [id number] Ambulatory [address] Repository 02/26/2018/02/27/20 [id number] Emergency BBuilding:ER [place] [address] [place] [address] Repository 02/25/2018/02/27/20 [id number] Emergency [place] ding:ED Repository 02/23/2018/02/24/20 [id number] Ambulatory [place] ding:PT Repository 02/16/2018/02/17/20 [id number] Emergency [place] Norma[address] ding:ED Repository 02/14/2018/02/15/20 [id number] Emergency [place] 18 [facility] ding:ED Repository 02/13/2018/02/14/20 [id number] Ambulatory [address] Repository 01/30/2018/01/31/20 [id number] Ambulatory BMSBuilding: [place] 18 [facility] Repository 01/30/2018/01/31/20 [id number] Emergency [place] ding:ED Repository 01/30/2018/02/01/20 [id number] Ambulatory [address] Repository 01/23/2018 [id number] Ambulatory [facility] ding:LABSPEC Repository 01/23/2018/01/24/20 [id number] Ambulatory BMSBuilding: [place] 18 [facility]MS.[facility] Repository 01/21/2018/01/22/20 [id number] Emergency [address] ding:ED Repository 01/18/2018/01/19/20 [id number] Ambulatory BMSBuilding: [place] 18 BMS.[facility] Repository 01/08/2018/01/10/20 [id number] Ambulatory [address] [place] Repository 01/02/2018/01/03/20 [id number] Ambulatory [address] [place] Repository 01/02/2018/01/03/20 [id number] Ambulatory [address] MEDICAL Repository [place]AGG[place]1 01/01/2018/01/02/20 [id number] Ambulatory [address] [place] Repository 12/26/2017/12/27/19 [id number] Emergency [address] [facility] [place] Repository 12/26/2017/12/27/19 [id number] Emergency [address] MEDICAL Repository [place]:AKEDRoom: EMBed: 35 12/24/2017/12/25/19 [id number] Emergency [address] ding:ED Repository 12/20/2017/12/21/19 [id number] Emergency [address] ding:ED Repository 12/17/2017/12/19/19 [id number] Emergency [address] ding:ED Repository 12/16/2017/12/17/19 [id number] [place], Emergency [place] ding:EDRoom: Repository [id number] 12/11/2017/12/13/19 [id number] ANNE CHRISTENSEN Ambulatory [address] [place] Repository 12/11/2017/12/13/19 [id number] ANNE CHRISTENSEN Inpatient [address] MEDICAL Repository [place]: 5217Bed: 12/01/2017/12/02/19 [id number] Ambulatory [address] [place] Repository 12/01/2017/12/02/19 [id number] Ambulatory [address] MEDICAL Repository CENTERBuildi ng:AKPAT 11/07/2017/11/09/19 [id number] Emergency [place] ding:ED Repository 11/07/2017/11/08/19 [id number] Ambulatory Building:[address] Repository 10/25/2017/10/26/19 [id number] Ambulatory [address] [place] Repository 10/25/2017/10/27/19 [id number] Ambulatory [address] [place] Repository 10/17/2017/10/18/19 [id number] Ambulatory [address] [place] Repository 10/17/2017/10/18/19 [id number] Ambulatory [address] MEDICAL Repository CENTERBuildi ng:AGGENS1 10/14/2017/10/15/19 [id number] Emergency [place] Norma[address] ding:ED Repository 10/10/2017/10/11/19 [id number] Ambulatory [address] [place] Repository 10/05/2017/10/10/19 [id number] Ambulatory [address] [place] Repository 09/15/2017/09/16/19 [id number] Emergency [place] ding:ED Repository 09/12/2017/09/15/19 [id number] Ambulatory [address] [place] Repository 08/22/2017/08/23/19 [id number] Emergency [place] ding:ED Repository 08/11/2017/08/15/19 [id number] Ambulatory [address] [place] Repository 08/04/2017/08/05/19 [id number] Ambulatory [address] [place] Repository 08/04/2017/08/05/19 [id number] Ambulatory [address] [place] Repository 08/02/2017/08/09/19 [id number] Ambulatory [address] [place] Repository 07/28/2017/07/29/19 [id number] Ambulatory [address] Repository 07/28/2017/08/02/19 [id number] Ambulatory [address] Repository 07/27/2017/07/28/19 [id number] Ambulatory [address] Repository 07/27/2017/07/28/19 [id number] Ambulatory [address] Repository 07/27/2017/11/11/19 [id number] Ambulatory [address] Repository 07/25/2017/07/25/19 [id number] Emergency [address] ding:ED Repository 07/22/2017/07/22/19 [id number] Emergency [address] ding:ED Repository 07/18/2017/07/18/19 [id number] Emergency [address] ding:ED Repository 07/18/2017 [id number] Ambulatory [facility] ding:CVS Repository 07/18/2017 [id number] Ambulatory BMSBuilding: [facility] Repository 06/28/2017 [id number] Ambulatory [facility] ding:PSN Repository 06/28/2017 [id number] Ambulatory BMSBuilding: [facility] Repository 06/28/2017 [id number] Ambulatory BMSBuilding: [facility] Repository PAYERS PAYERS ENCOUNTER GUARANTOR PAYER SUBSCRIBER SOURCE 06/15/2018 DEBBY Alvarenga Primary DEBBY Green [id number] Insurance:MEDICARE BRENNEMANDOB: [facility] [id number]: Repository [address]Ykz: [phone] [id number] [phone] () Date:2018-06-15 06/15/2018 Secondary DEBBY Green Insurance:MEDICAIDPol BRENNEMANDOB: [facility] Number: [id number] Hospital [id number] Repository Date:2018-06-15 06/15/2018 Tertiary NOT GIVENUNK [place] Insurance:SELF PAY [facility] Number: Effective Repository Date:2018-06-15 06/05/2018 DEBBY Alvarenga Primary DEBBY Green [id number] Insurance:MEDICARE BRENNEMANDOB: [facility] [address] [id number] Number: Repository [address]Cyg: 330 [id number] [phone] () Date:2018-06-05 06/05/2018 Secondary DEBBY L [place] Insurance:MEDICAIDPol BRENNEMANDOB: [facility] Number: [id number] Hospital [id number] Repository Date:2018-06-05 06/05/2018 [facility] [place] Insurance:SELF PAY [facility] Number: Effective Repository Date:2018-06-05 05/25/2018 DEBBY L Primary DEBBY Alvarenga [facility] BRENNEMANDOB: Insurance:MEDICARE BRENNEMANDOB: [facility] PART B [facility] [id number] Repository [place] Number: [place] [id number], [place] [address]Tuw: (330) Date:2018-05-25 [id number]: () [id number] [phone] Name:RONDA ()Tel: (000) Administrators LLCPO 000-0000 () [address] [address], [place] [address]FT: 05/25/2018 Secondary DEBBY Day [facility] Insurance:MEDICAID OF BREEMANDOB: [facility] [id number] Repository Number: [place] [id number] [place] Date:2018-05-25 [id number]: [id number] [phone] Name:HUANG WHITMORE Box ()Tel: ([phone]) [phone], [place] 000-0000 (WP) [phone]: 05/11/2018 DEBBY L Primary DEBBY Green [id number] Insurance:MEDICARE BRENNEMANDOB: [facility] PART A [facility] [address] [id number] [place] Number: Repository [address]Vlo: [phone] [id number] [phone] (HP) Date:2018-05-11 05/11/2018 Secondary DEBBY L [place] Insurance:MEDICAIDPol BRENNEMANDOB: Community icy Number: [id number] Hospital [id number] Repository Date:2018-05-11 05/11/2018 Tertiary NOT GIVENUNK [place] Insurance:SELF PAY [facility] Number: Effective Repository Date:2018-05-11 04/24/2018 DEBBY L Primary DEBBY L [place] [id number] Insurance:MEDICARE BRENNEMANDOB: [facility] A [facility] [address] [id number] [place] Number: Repository [address]Fjv: 330 [id number] [phone] () Date:2018-04-24 04/24/2018 Secondary DEBBY L [place] Insurance:MEDICAIDPol BRENNEMANDOB: [facility] icy Number: [id number] Hospital [id number] Repository Date:2018-04-24 04/24/2018 Tertiary NOT GIVENUNK [place] Insurance:SELF PAY [facility] Number: Effective Repository Date:2018-04-24 04/23/2018 DEBBY L Primary DEBBY L [place] [id number] Insurance:MEDICARE BRENNEMANDOB: [facility] PART A [facility] [address] [id number] Memorial [facility], [place] Number: Repository [address]Ulm: 330 [id number] [phone] (HP) Date:2018-04-23 04/23/2018 Secondary DEBBY L [place] Insurance:MEDICAIDPol BRENNEMANDOB: [facility] icy Number: [id number] Hospital [id number] Repository Date:2018-04-23 04/23/2018 Tertiary NOT GIVENUNK Norma Insurance:SELF PAY [facility] Number: Effective Repository Date:2018-04-23 04/14/2018 DEBBY L Primary DEBBY L [place] [id number] Insurance:MEDICARE BRENNEMANDOB: [facility]ly [facility] PART A [facility] [address] [id number] Memorial Hospital [place] Number: Repository [address]Svy: (049) [id number] [phone] (HP) Date:2018-04-14 04/14/2018 Secondary DEBBY L [place] Insurance:MEDICAIDPol BRENNEMANDOB: Community icy Number: [id number] Hospital [id number] Repository Date:2018-04-14 04/14/2018 Tertiary NOT GIVENUNK [place] Insurance:SELF PAY [facility] Number: Effective Repository Date:2018-04-14 04/13/2018 DEBBY L Primary DEBBY L [place] [id number] Insurance:MEDICARE BRENNEMANDOB: [facility] [address] [id number] Memorial Hospital [place] Number: Repository [address]Ysz: 330 [id number] [phone] () Date:2018-04-13 04/13/2018 Secondary DEBBY L [place] Insurance:MEDICAIDPol BRENNEMANDOB: [facility] icy Number: [id number] Hospital [id number] Repository Date:2018-04-13 04/13/2018 Tertiary NOT GIVENUNK [place] Insurance:SELF PAY [facility] Number: Effective Repository Date:2018-04-13 04/11/2018 DEBBY L Primary DEBBY L [place] [id number] Insurance:MEDICARE BRENNEMANDOB: Community [place] PART A [facility] [address] [id number] Memorial Hospital [place] Number: Repository [address]Czn: 330 [id number] [phone] () Date:2018-04-11 04/11/2018 Secondary DEBBY L [place] Insurance:MEDICAIDPol BRENNEMANDOB: Community icy Number: [id number] Hospital [id number] Repository Date:2018-04-11 04/11/2018 Tertiary NOT GIVENUNK [place] Insurance:SELF PAY [facility] Number: Effective Repository Date:2018-04-11 04/11/2018 DEBBY L Primary DEBBY L [place] [id number] Insurance:MEDICARE BRENNEMANDOB: Community [place] PART A [facility] [address] [id number] Memorial Hospital [place] Number: Repository [address]Lse: 330 [id number] [phone] (HP) Date:2018-04-11 04/11/2018 Secondary DEBBY L [place] Insurance:MEDICAIDPol BRENNEMANDOB: [facility] icy Number: [id number] Hospital [id number] Repository Date:2018-04-11 04/11/2018 Tertiary NOT GIVENUNK [place] Insurance:SELF PAY [facility] Number: Effective Repository Date:2018-04-11 04/11/2018 DEBBY L Primary DEBBY L [place] [id number] Insurance:MEDICARE BRENNEMANDOB: [facility]ly [facility] PART A [facility] [address] [id number] Memorial Hospital [place] Number: Repository [address]Eri: 330 [id number] [phone] (HP) Date:2018-04-11 04/11/2018 Secondary DEBBY L [place] Insurance:MEDICAIDPol BRENNEMANDOB: [facility] icy Number: [id number] Hospital [id number] Repository Date:2018-04-11 04/11/2018 Tertiary NOT GIVENUNK [place] Insurance:SELF PAY [facility] Number: Effective Repository Date:2018-04-11 04/09/2018 DEBBY L Primary DEBBY L [place] [id number] Insurance:MEDICARE BRENNEMANDOB: [facility] [address] [id number] Memorial Hospital, [place] Number: Repository [address]Fjo: 330 [id number] [phone] (HP) Date:2018-04-09 04/09/2018 Secondary DEBBY L [place] Insurance:MEDICAIDPol BRENNEMANDOB: [facility] icy Number: [id number] Hospital [id number] Repository Date:2018-04-09 04/09/2018 Tertiary NOT GIVENUNK [place] Insurance:SELF PAY [facility] Number: Effective Repository Date:2018-04-09 03/23/2018 DEBBY L Primary DEBBY L [place] [id number] Insurance:MEDICARE BRENNEMANDOB: [facility] [address] [id number] Memorial Hospital, [place] Number: Repository [address]Xtl: 330 [id number] [phone] (HP) Date:2018-03-19 03/23/2018 Secondary DEBBY L [place] Insurance:MEDICAIDPol BRENNEMANDOB: Community icy Number: [id number] Hospital [id number] Repository Date:2018-03-19 03/23/2018 Tertiary NOT GIVENUNK [place] Insurance:SELF PAY [facility] Number: Effective Repository Date:2018-03-19 03/22/2018 DEBBY L Primary DEBBY L [place] [id number] Insurance:MEDICARE BRENNEMANDOB: [facility] PART A [facility] [address] [id number] [place] Number: Repository [address]Ovx: 330 [id number] [phone] (HP) Date:2018-03-22 03/22/2018 Secondary DEBBY L [place] Insurance:MEDICAIDPol BRENNEMANDOB: [facility] icy Number: [id number] Hospital [id number] Repository Date:2018-03-22 03/22/2018 Tertiary NOT GIVENUNK [place] Insurance:SELF PAY [facility] Number: Effective Repository Date:2018-03-22 03/19/2018 DEBBY L Primary DEBBY L [place] [id number] Insurance:MEDICARE BRENNEMANDOB: [facility] [address] [id number] [place] Number: Repository [address]Xft: 330 [id number] [phone] () Date:2018-03-19 03/19/2018 Secondary DEBBY L [place] Insurance:MEDICAIDPol BRENNEMANDOB: [facility] icy Number: [id number] Hospital [id number] Repository Date:2018-03-19 03/19/2018 Tertiary NOT GIVENUNK [place] Insurance:SELF PAY [facility] Number: Effective Repository Date:2018-03-19 03/14/2018 DEBBY L Primary DEBBY L [place] [id number] Insurance:MEDICARE BRENNEMANDOB: [facility] A [facility] [address] [id number] Memorial Hospital, [place] Number: Repository [address]Zxl: 330 [id number] [phone] (HP) Date:2018-03-14 03/14/2018 Secondary DEBBY L [place] Insurance:MEDICAIDPol BRENNEMANDOB: [facility] icy Number: [id number] Hospital [id number] Repository Date:2018-03-14 03/14/2018 Tertiary NOT GIVENUNK [place] Insurance:SELF PAY [facility] Number: Effective Repository Date:2018-03-14 03/06/2018 DEBBY Alvarenga Primary DEBBY L [place] [id number] Insurance:MEDICARE BRENNEMANDOB: [facility] PART A [facility] [address] [id number] Memorial Hospital, [place] Number: Repository [address]Tms: 330 [id number] [phone] () Date:2018-03-06 03/06/2018 Secondary DEBBY L [place] Insurance:MEDICAIDPol BRENNEMANDOB: [facility] icy Number: [id number] Hospital [id number] Repository Date:2018-03-06 03/06/2018 Tertiary NOT GIVENUNK [place] Insurance:SELF PAY [facility] Number: Effective Repository Date:2018-03-06 03/03/2018 DEBBY Alvarenga Primary DEBBY [place] [id number] Insurance:MEDICARE BRENNEMANDOB: [facility]ly [facility] PART A [facility] [address] [id number] Memorial Hospital, [place] Number: Repository [address]Ikl: 330 [id number] [phone] () Date:2018-03-03 03/03/2018 Secondary DEBBY L [place] Insurance:MEDICAIDPol BRENNEMANDOB: [facility] icy Number: [id number] Hospital [id number] Repository Date:2018-03-03 03/03/2018 Tertiary NOT GIVENUNK [place] Insurance:SELF PAY [facility] Number: Effective Repository Date:2018-03-03 02/26/2018 DEBBY L Primary DEBBY [facility] BRENNEMANDOB: [facility] CHILDRENolicy Number: [id number] [facility] [id number] [place] Date:2018-02-26 [place], [place] [address]Mrp: [phone]: (HP) Name:[facility] [phone] [employer] (HP)Tel: (000) [address]Iczswhhmr, [phone] (WP) [place] [address]UD: 02/26/2018 Secondary DEBBY L [facility] Insurance:MEDICAID [facility]: [facility] Number: [id number] Repository [id number] [place] Date:2018-02-26 - [place], [place] [phone] [address]Xoj: (330) Name:HUANG WHITMORE [phone] [id number], [place] ()Tel: 000) [phone]: (WP) [phone] 02/25/2018 DEBBY L Primary DEBBY L [place] [id number] Insurance:MEDICARE [facility]B: [facility] PART A [facility] [address] 5320-32-50EZNShenandoah Junction, [place] Number: Repository [address]Gej: 330 [id number] [phone] () Date:2018-02-25 02/25/2018 Secondary DEBBY L [place] Insurance:MEDICAIDSaint [facility]'s East HospitalB: [facility] Number: [id number] Hospital [id number] Repository Date:2018-02-25 02/25/2018 Tertiary NOT GIVENUNK [place] Insurance:SELF PAY [facility] Number: Effective Repository Date:2018-02-25 02/23/2018 DEBBY L Primary DEBBY L [place] [id number] Insurance:MEDICARE [facility]TRUMB[facility]ITALDOB: [facility] PART A [facility] [address] [id number] [place] Number: Repository [address]Jwt: (002) [id number] [phone] () Date:2016-03-29 02/23/2018 Secondary DEBBY L [place] Insurance:MEDICAIDPol BRENNEMANDOB: Community icy Number: [id number] Hospital [id number] Repository Date:2018-01-27 02/23/2018 Tertiary NOT GIVENUNK [place] Insurance:SELF PAY [facility] Number: Effective Repository Date:2018-01-31 02/16/2018 DEBBY L Primary DEBBY L [place] [id number] Insurance:MEDICARE BRENNEMANDOB: [facility] [address] [id number] Memorial Hospital, [place] Number: Repository [address]Udx: 330 [id number] [phone] (HP) Date:2018-02-16 02/16/2018 Secondary DEBBY L [place] Insurance:MEDICAIDPol BRENNEMANDOB: [facility] icy Number: [id number] Hospital [id number] Repository Date:2018-02-16 02/16/2018 Tertiary NOT GIVENUNK [place] Insurance:SELF PAY [facility] Number: Effective Repository Date:2018-02-16 02/14/2018 DEBBY L Primary DEBBY L [place] [id number] Insurance:MEDICARE BRENNEMANDOB: [facility] PART A [facility] [address] [id number] Memorial Hospital, [place] Number: Repository [address]Keb: 330 [id number] [phone] (HP) Date:2018-02-14 02/14/2018 Secondary DEBBY L [place] Insurance:MEDICAIDPol BRENNEMANDOB: [facility] icy Number: [id number] Hospital [id number] Repository Date:2018-02-14 02/14/2018 Tertiary NOT GIVENUNK [place] Insurance:SELF PAY [facility] Number: Effective Repository Date:2018-02-14 01/30/2018 DEBBY L Primary DEBBY L [place] [id number] Insurance:MEDICARE BRENNEMANDOB: [facility] A [facility] [address] [id number] Memorial Hospital, [place] Number: Repository [address]Thg: 330 [id number] [phone] (HP) Date:2018-01-23 01/30/2018 Secondary DEBBY L [place] Insurance:MEDICAIDPol BRENNEMANDOB: Community icy Number: [id number] Hospital [id number] Repository Date:2018-01-23 01/30/2018 Tertiary NOT GIVENUNK [place] Insurance:SELF PAY [facility] Number: Effective Repository Date:2018-01-30 01/30/2018 DEBBY L Primary DEBBY L [place] [id number] Insurance:MEDICARE BRENNEMANDOB: [facility] A [facility] [address] [id number] Memorial Hospital, [place] Number: Repository [address]Lfk: 330 [id number] [phone] (HP) Date:2018-01-30 01/30/2018 Secondary DEBBY L [place] Insurance:MEDICAIDPol BRENNEMANDOB: [facility] icy Number: [id number] Hospital [id number] Repository Date:2018-01-30 01/30/2018 Tertiary NOT GIVENUNK [place] Insurance:SELF PAY [facility] Number: Effective Repository Date:2018-01-30 01/23/2018 DEBBY L Primary DEBBY L [place] [id number] Insurance:MEDICARE BRENNEMANDOB: [facility] PART A [facility] [address] [id number] Memorial Hospital, [place] Number: Repository [address]Yhr: 330 [id number] [phone] (HP) Date:2018-01-23 01/23/2018 Secondary DEBBY L [place] Insurance:MEDICAIDPol BRENNEMANDOB: [facility] icy Number: [id number] Hospital [id number] Repository Date:2018-01-23 01/23/2018 Tertiary NOT GIVENUNK [place] Insurance:SELF PAY [facility] Number: Effective Repository Date:2018-01-23 01/23/2018 DEBBY L Primary DEBBY L [place] [id number] Insurance:MEDICARE BRENNEMANDOB: [facility] PART A [facility] [address] [id number] Memorial Hospital, [place] Number: Repository [address]Msm: 330 [id number] [phone] (HP) Date:2018-01-18 01/23/2018 Secondary DEBBY L [place] Insurance:MEDICAIDPol BRENNEMANDOB: [facility] icy Number: [id number] Hospital [id number] Repository Date:2018-01-18 01/23/2018 Tertiary NOT GIVENUNK [place] Insurance:SELF PAY [facility] Number: Effective Repository Date:2018-01-23 01/21/2018 DEBBY L Primary DEBBY L [place] [id number] Insurance:MEDICARE BRENNEMANDOB: [facility] [place] [facility] A [facility] [address] 3428-50-00XBGShenandoah [place]unction, [place] Number: Repository [address]Yjm: 330 [id number] [phone] (HP) Date:2018-01-21 01/21/2018 Secondary DEBBY L [place] Insurance:MEDICAIDPol BRENNEMANDOB: [facility] icy Number: [id number] Hospital [id number] Repository Date:2018-01-21 01/21/2018 Tertiary NOT GIVENUNK [place] Insurance:SELF PAY [facility] Number: Effective Repository Date:2018-01-21 01/18/2018 DEBBY L Primary DEBBY L [place] [id number] Insurance:MEDICARE BRENNEMANDOB: [facility] [place] [facility] A [facility] [address] 1273-97-89VYWShenandoah [place], [place] Number: Repository [address]Aee: 330 [id number] [phone] () Date:2018-01-04 01/18/2018 Secondary DEBBY L [place] Insurance:MEDICAIDPol BRENNEMANDOB: [facility] icy Number: [id number] Hospital [id number] Repository Date:2018-01-04 01/18/2018 Tertiary NOT GIVENUNK [place] Insurance:SELF PAY [facility] Number: Effective Repository Date:2018-01-04 01/02/2018 DEBBY L Primary DEBBY L [facility] BRENNEMANDOB: Insurance:MEDICARE A BRENNEMANDOB: Health System AND [facility] [address] Number: [id number] Medical Center [id number] [place] Date: [address]Kfn: () 01/02/2018 Secondary DEBBY L [facility] Insurance:[place]IO BRENNEMANDOB: Health System MEDICAIDGeising[facility] Hospitaly [id number] Repository Number: [id number] Date: 12/26/2017 DEBBY L Primary DEBBY L [facility] BRENNEMANDOB: Insurance:MEDICARE A BREBAN[facility] DEL [facility] MEDICAL CENTERDOB: [facility] AND [facility] [address] Number: [id number] [facility] [id number][place], [place] Date: [address]Csl: () 12/26/2017 Secondary DEBBY L [facility] Insurance:[place] BRENNEMANDOB: Health System MEDICAIDPolicy [id number] Repository Number: [id number] Date: 12/24/2017 DEBBY L Primary DEBBY L [place] [id number] Insurance:MEDICARE [facility] CENTERB: [facility] [id number] Junction, [place] Number: Repository [address]Ymt: (985) [id number] [phone] () Date:2017-12-24 12/24/2017 Secondary DEBBY L [place] Insurance:[facility]ICAIDSaint [facility] HospitalB: [facility] icy Number: [id number] Hospital [id number] Repository Date:2017-12-24 12/24/2017 Tertiary NOT GIVENUNK [place] Insurance:SELF PAY [facility] Number: Effective Repository Date:2017-12-24 12/20/2017 DEBBY L Primary DEBBY L [place] [id number] Insurance:MEDICARE BRENNEMANDOB: [facility] [id number] Junction, [place] Number: Repository [address]Qrf: (326) [id number] [phone] () Date:2017-12-20 12/20/2017 Secondary DEBBY L [place] Insurance:MEDICAIDPol [facility]ENNTRUMBULL [facility]OSPITALDOB: [facility] icy Number: [id number] Hospital [id number] Repository Date:2017-12-20 12/20/2017 Tertiary NOT GIVENUNK [place] Insurance:SELF PAY [facility] Number: Effective Repository Date:2017-12-20 12/17/2017 DEBBY L Primary DEBBY L [place] [id number] Insurance:MEDICARE BRENNEMANDOB: [facility] PART A olicy [id number] Junction, [place] Number: Repository [address]Xgd: 330 [id number] [phone] () Date:2017-12-17 12/17/2017 Secondary DEBBY L [place] Insurance:MEDICAIDPol BRENNEMANDOB: [facility] icy Number: [id number] Hospital [id number] Repository Date:2017-12-17 12/17/2017 Tertiary NOT GIVENUNK [place] Insurance:SELF PAY [facility] Number: Effective Repository Date:2017-12-17 12/16/2017 DEBBY L Primary DEBBY L [place] [id number] Insurance:MEDICARE BRENNEMANDOB: [facility] PART A olicy [id number] Junction, [place] Number: Repository [address]Pnf: 330 [id number] [phone] () Date:2017-12-16 12/16/2017 Secondary DEBBY L [place] Insurance:MEDICAIDPol BRENNEMANDOB: [facility] icy Number: [id number] Hospital [id number] Repository Date:2017-12-16 12/16/2017 Tertiary NOT GIVENUNK [place] Insurance:SELF PAY [facility] Number: Effective Repository Date:2017-12-16 12/11/2017 DEBBY L Primary DEBBY L [facility] BRENNEMANDOB: Insurance:MEDICARE A BRENNEMANDOB: Health System AND BPolicy Number: [id number] [facility] [id number]'[place], [place] Date: [address]Mpo: () 12/11/2017 Secondary DEBBY L [facility] Insurance:[place] BRENNEMANDOB: Health System [facility]ID[facility] [id number] Repository Number: [id number] Date: 12/01/2017 DEBBY L Primary DEBBY L [facility] BRENNEMANDOB: Insurance:MEDICARE A BRENNEMANDOB: Health System AND BPolicy Number: [id number] [facility] [id number] [place], [place] Date: [address]Ibu: () 12/01/2017 Secondary DEBBY Co[facility] Insurance:[place] [facility]ENTERB: Health System MEDICAIDPolicy [id number] Repository Number: [id number] Date: 11/07/2017 DEBBY L Primary DEBBY L [place] [id number] Insurance:MEDICARE [facility] MEDICAL CENTERB: [facility] A [facility] [address] [id number] [place] Number: Repository [address]Ahk: [id number] [phone] Date:2017-11-07 () 11/07/2017 Secondary DEBBY L [place] Insurance:MEDICAIDPol BRENNEMANDOB: [facility] icy Number: [id number] [facility] [id number] Repository Date:2017-11-07 11/07/2017 Tertiary NOT GIVENUNK [place] Insurance:SELF PAY [facility] Number: Effective Repository Date:2017-11-07 11/07/2017 DEBBY Primary DEBBY L [facility] BRENNEMANDOB: Insurance:MEDICAREPol BRENNEMANDOB: [facility] icy Number: [id number] Repository [place] [id number] [facility], Date: [place], [place] [address]Tjy: [place] [address] () 11/07/2017 Secondary DEBBY [facility] Insurance:[facility]: Hospital MEDICAIDPolicy [id number] Repository Number: [place] [id number] [facility], Date: [place] [address] 10/17/2017 DEBBY L Primary DEBBY L [facility] BRENNEMANDOB: Insurance:MEDICARE A [facility]B: [facility] System AND [facility] Number: [id number] Repository [place] [id number] [place], [place] Date: [address]Doi: () 10/17/2017 Secondary DEBBY L [facility] Insurance:[place] BRENNEMANDOB: Health System [facility]ID[facility] [id number] Repository Number: [id number] Date: 10/14/2017 Debby Alvarenga Primary DEBBY [place] [id number] Insurance:MEDICARE BRENNEMANDOB: [facility] PART A [facility] [address] [id number] [place], [place] Number: Repository [address]Ekl: [id number] [phone] Date:2017-10-14 () 10/14/2017 Secondary DEBBY L [place] Insurance:MEDICAIDPol BRENNEMANDOB: [facility] icy Number: [id number] Hospital [id number] Repository Date:2017-10-14 10/14/2017 Tertiary NOT GIVENUNK [place] Insurance:SELF PAY [facility] Number: Effective Repository Date:2017-10-14 09/15/2017 Debby Alvarenga Primary DEBBY [place] [id number] Insurance:MEDICARE BRENNEMANDOB: [facility] PART A [facility] [address] [id number] Memorial Hospital [place] Number: Repository [address]Meh: [id number] [phone] Date:2017-09-15 () 09/15/2017 Secondary DEBBY Colette [place] Insurance:MEDICAIDPol BRENNEMANDOB: [facility] icy Number: [id number] Hospital [id number] Repository Date:2017-09-15 09/15/2017 Tertiary NOT GIVENUNK [place] Insurance:SELF PAY [facility] Number: Effective Repository Date:2017-09-15 08/22/2017 Debby L Primary DEBBY [place] [id number] Insurance:MEDICARE BRENNEMANDOB: [facility] PART A [facility] [address] [id number] Junction, [place] Number: Repository [address]Our: 330) [id number] [phone] () Date:2017-08-22 08/22/2017 Secondary DEBBY L [place] Insurance:MEDICAIDPol BRENNEMANDOB: [facility] icy Number: [id number] Hospital [id number] Repository Date:2017-08-22 08/22/2017 Tertiary NOT GIVENUNK [place] Insurance:SELF PAY [facility] Number: Effective Repository Date:2017-08-22 07/25/2017 Debby Alvarenga Primary DEBBY [place] [id number] Insurance:MEDICARE BRENNEMANDOB: Community [place] PART A [facility] [address] [id number] Memorial Hospital [place] Number: Repository [address]Aqy: 330 [id number] [phone] (HP) Date:2017-07-25 07/25/2017 Secondary DEBBY L [place] Insurance:MEDICAIDPol BRENNEMANDOB: [facility] icy Number: [id number] Hospital [id number] Repository Date:2017-07-25 07/25/2017 Tertiary NOT GIVENUNK [place] Insurance:SELF PAY [facility] Number: Effective Repository Date:2017-07-25 07/22/2017 Debby L Primary DEBBY L [place] [id number] Insurance:MEDICARE BRENNEMANDOB: Community [place]UNTER PART A [facility] [address] [id number] Memorial Hospital [place] Number: Repository [address]Qtz: 330 [id number] [phone] (HP) Date:2017-07-22 07/22/2017 Secondary DEBBY L [place] Insurance:MEDICAIDPol BRENNEMANDOB: [facility] icy Number: [id number] Hospital [id number] Repository Date:2017-07-22 07/22/2017 Tertiary NOT GIVENUNK [place] Insurance:SELF PAY [facility] Number: Effective Repository Date:2017-07-22 07/18/2017 Debby L Primary DEBBY L [place] [id number] Insurance:MEDICARE BRENNEMANDOB: Community [place]UNTER PART A [facility] [address] [id number] Memorial Hospital, [place] Number: Repository [address]Bby: 330 [id number] [phone] ([phone] Date:2017-07-18 07/18/2017 Secondary DEBBY L [place] Insurance:MEDICAIDPol BRENNEMANDOB: Community icy Number: [id number] [facility] [id number] Repository Date:2017-07-18 07/18/2017 Tertiary NOT GIVENUNK Norma Insurance:SELF PAY [facility] Effective Repository Date:2017-07-18 07/18/2017 Debby L Primary DEBBY L [place] [id number] Insurance:MEDICARE BRENNEMANDOB: Community Hunter PART A [facility] [address] [id number] Repository [address]Bjm: [phone] [id number] [phone] (HP) Date:2017-06-27 07/18/2017 Secondary DEBBY L [place] Insurance:MEDICAIDPol BRENNEMANDOB: [facility] icy Number: [id number] Hospital [id number] Repository Date:2017-06-27 07/18/2017 Tertiary NOT GIVENUNK Norma Insurance:SELF PAY [facility] Number: Effective Repository Date:2017-06-27 07/18/2017 Debby L Primary DEBBY L Norma [id number] Insurance:MEDICARE [facility] [address] [id number] [address]Kbo: [phone] [id number] [phone] (HP) Date:2017-07-18 07/18/2017 Secondary DEBBY L [place] Insurance:MEDICAIDPol BRENNEMANDOB: Community icy Number: [id number] Hospital [id number] Repository Date:2017-07-18 07/18/2017 Tertiary NOT GIVENUNK Norma Insurance:SELF PAY [facility]: Effective Repository Date:2017-07-18 06/28/2017 Debby L Primary DEBBY L [place] [id number] Insurance:MEDICARE [facility]ENNEMANDOB: [facility] [address] [id number] Number: Repository [address]Ruu: 330 [id number] [phone] (HP) Date:2017-06-27 06/28/2017 Secondary DEBBY L [place] Insurance:MEDICAIDPol BRENNEMANDOB: Community icy Number: [id number] Hospital [id number] Repository Date:2017-06-27 06/28/2017 Tertiary NOT GIVENUNK Norma Insurance:SELF PAY [facility] Number: Effective Repository Date:2017-06-27 06/28/2017 Debby L Primary DEBBY L [place] [id number] Insurance:MEDICARE BRENNEMANDOB: [facility] PART A [facility] [address] [id number]: Repository [id number]: [phone] [id number] [phone] () Date:2017-06-27 06/28/2017 Secondary DEBBY L [place] Insurance:MEDICAIDPol BRENNEMANDOB: [facility] icy Number: [id number] [facility] [id number] Repository Date:2017-06-27 06/28/2017 Tertiary NOT GIVENUNK [place] Insurance:SELF PAY [facility] Number: Effective Repository Date:2017-06-28 06/28/2017 Debby L Primary DEBBY L Norm[place] [id number] Insurance:MEDICARE BRENNEMANDOB: [facility] [id number] Number: Repository [phone]: [phone] [id number] [phone] () Date:2017-06-27 06/28/2017 Secondary DEBBY L [place] Insurance:MEDICAIDPol BRENNEMANDOB: Community icy Number: [id number] Hospital [id number] Repository Date:2017-06-27 06/28/2017 Tertiary NOT GIVENUNK Norma Insurance:SELF PAY [facility] Number: Effective Repository Date:2017-06-28
== END 2018-06-15 18:51 | disposition home or self-care (01) ==
PROVIDERS: Emergency Provider Emergency Medicine; Family Provider Family Medicine; PCP Family Medicine
DX: K62.5 Hemorrhage of anus and rectum (principal); E11.9 Type 2 diabetes mellitus without complications; Q05.9 Spina bifida, unspecified; N31.9 Neuromuscular dysfunction of bladder, unspecified
CPT/HCPCS: 85027; 99282

== ENCOUNTER 2018-07-03 17:31 | Emergency (ER) | payer MEDICARE, MEDICAID, SELFPAY ==
[2018-07-03] VITALS (9 sets, daily range): BP systolic 103–143; BP diastolic 69–100; PULSE 70–86; RESP 13–24; TEMP 36.6; O2SAT 96–100; BMI 44.0
--- NOTE | 2018-07-03 18:06 | EKG12_ITS ---
Test Reason : CHEST PAIN Blood Pressure : / mmHG Vent. Rate : 088 BPM Atrial Rate : 088 BPM P-R Int : 146 ms QRS Dur : 090 ms QT Int : 386 ms P-R-T Axes : 027 028 021 degrees QTc Int : 467 ms Normal sinus rhythm Normal ECG Confirmed by YARIEL FITZGERALD, ANUM ([id number]), mapping editor LASHA HAY ([id number]) on 07/09/2018 9:53:03 AM Referred By: EMMANUEL Confirmed By:ANUM SALDIVAR MD
--- NOTE | 2018-07-03 18:06 | RAD_ITS ---
HISTORY: chest pain since EXAM: XR Chest 2 Views: COMPARISON: chest radiographs 02/16 and 12/16 2017 FINDINGS: # of images incl. paperwork: 2 LINES/DEVICES: None. LUNGS: No evidence of pneumonia or pleural effusion or pulmonary edema. 1.9 cm calcification lateral aspect right upper lung unchanged. No pneumothorax. MEDIASTINUM AND CARDIOVASCULAR STRUCTURES: Cardiac silhouette not enlarged. Central airways and mediastinal contour are unremarkable. BONES AND SOFT TISSUES: Unremarkable. RAD/Chest PA and Lateral IMPRESSION: No radiographic evidence of acute cardiopulmonary disease. at 1950 Reported and signed by: Stephan Juarez MD Electronically Signed: Stephan Juarez, at 19:49 EST Tel , Service support ,
[2018-07-03] MEDS: Aspirin 81 MG TAB.CHEW 324 MG PO (18:25)
[2018-07-03 18:34] LABS: Absolute Lymphocyte Count 1.97 X10^3/ul (0.83-4.51); Absolute Neutrophil Count 7.5 X10^3/uL (2.0-7.7); Basophil# 0.06 X10^3/uL; Basophil% 0.6 % (0-1); Eosinophil# 0.33 X10^3/uL; Eosinophils% 3.1 % (0-5); Hematocrit 38.4 % (37-47); Hemoglobin 12.6 g/dl (12.0-15.0); Lymphocyte # 1.97 X10^3/ul (4.0); Lymphocyte % 18.3 % (19-41); Mean Corp Hgb Conc 32.8 g/gl (32-36); Mean Corpuscular Hgb 29.4 pg (27.0-32.0); Mean Corpuscular Volume 89.5 fL (81-99); Mean Platelet Vol. 10.6 fl (6.2-12.0); Monocyte# 0.78 X10^3/uL; Monocyte% 7.2 % (0-10); Neutrophil # 7.53 X10^3/uL (2.7-7.7); Neutrophil % 69.9 % (47-70); POSITIVE COUNT NO; POSITIVE DIFFERENTIAL NO; POSITIVE MORPHOLOGY NO; Platelet Count 196 K/mm3 (150-450); RBC Distribution Width CV 13.7 % (11.6-14.6); RBC Distribution Width SD 44.5 fl (35.1-43.9); Red Blood Count 4.29 M/mm3 (4.2-5.4); White Blood Count 10.8 K/mm3 (4.4-11.0)
[2018-07-03 18:54] LABS: Anion Gap 7 (5-15); BUN 12 mg/dL (7-18); BUN/Creat Ratio 12.9 RATIO (10-20); Calcium,Total 8.5 mg/dL (8.5-10.1); Chloride 102 mmol/L (98-107); Creatinine, Serum 0.93 mg/dL (0.55-1.02); EST Glomerular Filtration Rate 73 mL/min (>60); Est Glom Filt Rate - Afr Amer 88 mL/min (>60); Estimated Creatinine Clearance 66.14 ml/min; Glucose 236 mg/dL (74-106); Potassium 4.2 mmol/L (3.5-5.1); Sodium Level 135 mmol/L (136-145); Thyroid Stim Hormone (TSH) 1.67 uIU/mL (0.358-3.74)
[2018-07-03 19:04] LABS: BNP,B-Type NATRIURETIC PEPTIDE 4.5 pg/mL (0-100)
--- NOTE | 2018-07-03 20:39 | EKG12_ITS ---
Test Reason : REPEAT Blood Pressure : / mmHG Vent. Rate : 072 BPM Atrial Rate : 072 BPM P-R Int : 156 ms QRS Dur : 082 ms QT Int : 422 ms P-R-T Axes : 023 028 019 degrees QTc Int : 462 ms Normal sinus rhythm Normal ECG Confirmed by ANUM SALDIVAR MD ([id number]), supervising film or videotape editor LASHA HAY ([id number]) on 07/09/2018 9:53:19 AM Referred By: SANDRA Confirmed By:ANUM SALDIVAR MD
--- NOTE | 2018-07-03 21:57 | ED.VISSUMM ---
- ER Visit Summary Date of Service: 07/03/18 Chief Complaint: chest pain History of Present Illness: The patient is a 37 F who presents for 5 days of chest pain. Patient states it is been a substernal throbbing and continuous. It is worse with exertion. Today the pain became increased with radiation into the left arm, with associated left arm numbness. The left arm symptoms started last night. Patient states she has associated lightheadedness and dizziness with exertion. Also shortness of breath. She denies fever, cough, congestion, nausea or vomiting, diarrhea or abdominal pain. She was evaluated 6 days ago for right lower extremity swelling and negative for DVT. Patient has noted left lower extremity swelling now. Patient has history of spina bifida and has diminished sensation in the left side of her body at baseline. Patient is not taking anything for the pain. Physical Examination: Vital signs: afebrile, hemodynamically stable, no hypoxia on room air General: well nourished, well developed, in no distress Skin: warm, dry, no rash, no pallor HEENT: normocephalic and atraumatic; PERRL, EOMI, moist mucous membranes Cardiovascular: regular rate and rhythm without murmurs, nonpitting symmetric peripheral edema, nontender, 2+ pulses all distal extremities Respiratory: No increased work of breathing, lungs are clear to auscultation bilaterally, no rales, rhonchi or wheezing no chest wall tenderness Abdominal: Abdomen is soft, nontender with normoactive bowel sounds, no guarding or rebound, no masses MSK: Moves all extremities, no deformities, normal strength for patient Neuro: Awake and alert, oriented ?4. No acute focal neuro deficits. Test Results: Abnormal Lab Results 07/03/18 07/03/18 07/03/18 18:20 18:20 18:20 WBC 10.8 RBC 4.29 Hgb 12.6 Hct 38.4 MCV 89.5 MCH 29.4 MCHC 32.8 RDW 13.7 RDW Differential 44.5 H Plt Count 196 MPV 10.6 Immature Gran % (Auto) 0.900 Neut % (Auto) 69.9 Lymph % (Auto) 18.3 L [place] % (Auto) 7.2 Eos % (Auto) 3.1 Baso % (Auto) 0.6 Absolute Neuts (auto) 7.5 Absolute Lymphs (auto) 1.97 Total Counted Not Reportable D-Dimer Quant (PE/DVT) 0.30 Sodium 135 L Potassium 4.2 Chloride 102 Carbon Dioxide 26.0 Anion Gap 7 BUN 12 Creatinine 0.93 Estim Creat Clear Calc 66.14 Est GFR (MDRD) Af Amer 88 Est GFR (MDRD) Non-Af 73 BUN/Creatinine Ratio 12.9 Glucose 236 H Calcium 8.5 Troponin I < 0.015 B-Natriuretic Peptide TSH 1.67 07/03/18 07/03/18 18:20 21:10 WBC RBC Hgb Hct MCV MCH MCHC RDW RDW Differential Plt Count MPV Immature Gran % (Auto) Neut % (Auto) Lymph % (Auto) [place] % (Auto) Eos % (Auto) Baso % (Auto) Absolute Neuts (auto) Absolute Lymphs (auto) Total Counted D-Dimer Quant (PE/DVT) Sodium Potassium Chloride Carbon Dioxide Anion Gap BUN Creatinine Estim Creat Clear Calc Est GFR (MDRD) Af Amer Est GFR (MDRD) Non-Af BUN/Creatinine Ratio Glucose Calcium Troponin I < 0.015 B-Natriuretic Peptide 4.5 TSH Clinical Impression(s) from Imaging Studies Chest X-Ray 07/03/18 18:06 IMPRESSION: No radiographic evidence of acute cardiopulmonary disease. at 1950 Reported and signed by: Stephan Juarez MD Electronically Signed: Stephan Juarez, at 19:49 EST Tel , Service support , Medications Given Discontinued Medications Aspirin (Aspirin, Baby) 324 mg PO X1 STA Stop: 07/03/18 18:07 Last Admin: 07/03/18 18:25 Dose: 324 mg Ketorolac Tromethamine (Toradol) 15 mg IV X1 ONE Stop: 07/03/18 20:50 Last Admin: 07/03/18 21:58 Dose: 15 mg Nitroglycerin (Nitrostat) 0.4 mg SUBLINGUAL Q5M MIREYA Stop: 07/03/18 18:26 Last Admin: 07/03/18 18:56 Dose: 0.4 mg Admin: 07/03/18 18:44 Dose: 0.4 mg Admin: 07/03/18 18:26 Dose: 0.4 mg Emergency Department Course and Treatment: Patient presents for 5 days of substernal chest pain, now radiating into the left shoulder and into the back. Patient has risk factors for coronary artery disease of diabetes, obesity and family history. Patient was given aspirin and 3 sublingual nitroglycerin without any change in her chest pain. EKG showed a sinus rhythm with no ischemic changes. Unchanged from prior. Patient's labs were remarkable only for glucose of 236. Troponin negative. D-dimer was checked given patient complaining of associated shortness of breath and dizziness with exertion. D-dimer was within normal limits of 0.3. TSH normal. BNP unremarkable, and was checked because patient is complaining of the lower extremity edema. Chest x-ray showed no signs of pulmonary edema or pneumonia. Patient's workup was unremarkable. She continued to complain of the chest discomfort but was resting comfortably in bed and constantly on her phone, including when her attention was needed for re-evaluations and nursing interventions. She was given Toradol for this discomfort. Repeat EKG and troponin remained unchanged. Patient has had this chest pain for 5 days and states there is been no pain-free time, and she has an unremarkable cardiac workup at this evaluation, it is highly unlikely her chest pain is related to a cardiac issue, as it would be expected that some EKG or troponin changes would be noted after this period of time. No life-threatening findings for patient's chest pain were identified that would require admission or further workup. She is to follow-up with her doctor if she continues to have this chest discomfort. Patient was discharged home. Treatment Plan: [] Disposition: [] Impression: Atypical chest pain This note was generated with [employer] dictation software. It may contain incorrect words, spelling, and punctuation that were not noted in review of the chart prior to signing ED Disposition - Plan for ED Patient: Disposition: Home or Assisted Living Instructions: ED Chest Pain NonCardiac Referrals: Will Shukla MD [Primary Care Provider] - Keep Mireya appointment Additional Instructions: Use [id number] pain medication as needed for further chest pain. Keep your appointment tomorrow with your primary care doctor. If you have any worsening of your condition or any new concerning symptoms, please return immediately to the emergency department for another evaluation.
[2018-07-03] MEDS: Ketorolac 15 MG/ML Vial IV (21:58)
--- NOTE | 2018-07-03 22:00 | ED.DCSUM_ITS ---
- ER Visit Summary Date of Service: 07/03/18 Chief Complaint: chest pain History of Present Illness: The patient is a 37 F who presents for 5 days of chest pain. Patient states it is been a substernal throbbing and continuous. It is worse with exertion. Today the pain became increased with radiation into the left arm, with associated left arm numbness. The left arm symptoms started last night. Patient states she has associated lightheadedness and dizziness with exertion. Also shortness of breath. She denies fever, cough, congestion, nausea or vomiting, diarrhea or abdominal pain. She was evaluated 6 days ago for right lower extremity swelling and negative for DVT. Patient has noted left lower extremity swelling now. Patient has history of spina bifida and has diminished sensation in the left side of her body at baseline. Patient is not taking anything for the pain. Physical Examination: Vital signs: afebrile, hemodynamically stable, no hypoxia on room air General: well nourished, well developed, in no distress Skin: warm, dry, no rash, no pallor HEENT: normocephalic and atraumatic; PERRL, EOMI, moist mucous membranes Cardiovascular: regular rate and rhythm without murmurs, nonpitting symmetric peripheral edema, nontender, 2+ pulses all distal extremities Respiratory: No increased work of breathing, lungs are clear to auscultation bilaterally, no rales, rhonchi or wheezing no chest wall tenderness Abdominal: Abdomen is soft, nontender with normoactive bowel sounds, no guarding or rebound, no masses MSK: Moves all extremities, no deformities, normal strength for patient Neuro: Awake and alert, oriented ?4. No acute focal neuro deficits. Test Results: Abnormal Lab Results 07/03/18 07/03/18 07/03/18 18:20 18:20 18:20 WBC 10.8 RBC 4.29 Hgb 12.6 Hct 38.4 MCV 89.5 MCH 29.4 MCHC 32.8 RDW 13.7 RDW Differential 44.5 H Plt Count 196 MPV 10.6 Immature Gran % (Auto) 0.900 Neut % (Auto) 69.9 Lymph % (Auto) 18.3 L [place] % (Auto) 7.2 Eos % (Auto) 3.1 Baso % (Auto) 0.6 Absolute Neuts (auto) 7.5 Absolute Lymphs (auto) 1.97 Total Counted Not Reportable D-Dimer Quant (PE/DVT) 0.30 Sodium 135 L Potassium 4.2 Chloride 102 Carbon Dioxide 26.0 Anion Gap 7 BUN 12 Creatinine 0.93 Estim Creat Clear Calc 66.14 Est GFR (MDRD) Af Amer 88 Est GFR (MDRD) Non-Af 73 BUN/Creatinine Ratio 12.9 Glucose 236 H Calcium 8.5 Troponin I < 0.015 B-Natriuretic Peptide TSH 1.67 07/03/18 07/03/18 18:20 21:10 WBC RBC Hgb Hct MCV MCH MCHC RDW RDW Differential Plt Count MPV Immature Gran % (Auto) Neut % (Auto) Lymph % (Auto) [place] % (Auto) Eos % (Auto) Baso % (Auto) Absolute Neuts (auto) Absolute Lymphs (auto) Total Counted D-Dimer Quant (PE/DVT) Sodium Potassium Chloride Carbon Dioxide Anion Gap BUN Creatinine Estim Creat Clear Calc Est GFR (MDRD) Af Amer Est GFR (MDRD) Non-Af BUN/Creatinine Ratio Glucose Calcium Troponin I < 0.015 B-Natriuretic Peptide 4.5 TSH Clinical Impression(s) from Imaging Studies Chest X-Ray 07/03/18 18:06 IMPRESSION: No radiographic evidence of acute cardiopulmonary disease. at 1950 Reported and signed by: Stephan Juarez MD Electronically Signed: Stephan Juarez, at 19:49 EST Tel , Service support , Medications Given Discontinued Medications Aspirin (Aspirin, Baby) 324 mg PO X1 STA Stop: 07/03/18 18:07 Last Admin: 07/03/18 18:25 Dose: 324 mg Ketorolac Tromethamine (Toradol) 15 mg IV X1 ONE Stop: 07/03/18 20:50 Last Admin: 07/03/18 21:58 Dose: 15 mg Nitroglycerin (Nitrostat) 0.4 mg SUBLINGUAL Q5M MIREYA Stop: 07/03/18 18:26 Last Admin: 07/03/18 18:56 Dose: 0.4 mg Admin: 07/03/18 18:44 Dose: 0.4 mg Admin: 07/03/18 18:26 Dose: 0.4 mg Emergency Department Course and Treatment: Patient presents for 5 days of substernal chest pain, now radiating into the left shoulder and into the back. Patient has risk factors for coronary artery disease of diabetes, obesity and family history. Patient was given aspirin and 3 sublingual nitroglycerin without any change in her chest pain. EKG showed a sinus rhythm with no ischemic changes. Unchanged from prior. Patient's labs were remarkable only for glucose of 236. Troponin negative. D-dimer was checked given patient complaining of associated shortness of breath and dizziness with exertion. D- dimer was within normal limits of 0.3. TSH normal. BNP unremarkable, and was checked because patient is complaining of the lower extremity edema. Chest x- ray showed no signs of pulmonary edema or pneumonia. Patient's workup was unremarkable. She continued to complain of the chest discomfort but was resting comfortably in bed and constantly on her phone, including when her attention was needed for re-evaluations and nursing interventions. She was given Toradol for this discomfort. Repeat EKG and troponin remained unchanged. Patient has had this chest pain for 5 days and states there is been no pain-free time, and she has an unremarkable cardiac workup at this evaluation, it is highly unlikely her chest pain is related to a cardiac issue, as it would be expected that some EKG or troponin changes would be noted after this period of time. No life- threatening findings for patient's chest pain were identified that would require admission or further workup. She is to follow-up with her doctor if she continues to have this chest discomfort. Patient was discharged home. Treatment Plan: [] Disposition: [] Impression: Atypical chest pain This note was generated with [employer] dictation software. It may contain incorrect words, spelling, and punctuation that were not noted in review of the chart prior to signing ED Disposition - Plan for ED Patient: Disposition: Home or Assisted Living Instructions: ED Chest Pain NonCardiac Referrals: Will Shukla MD [Primary Care Provider] - Keep Mireya appointment Additional Instructions: Use [id number] pain medication as needed for further chest pain. Keep your appointment tomorrow with your primary care doctor. If you have any worsening of your condition or any new concerning symptoms, please return immediately to the emergency department for another evaluation.
--- NOTE | 2018-07-03 22:03 | DCINST.ED_ITS ---
ED Disposition - Plan for ED Patient: Disposition: Home or Assisted Living Instructions: ED Chest Pain NonCardiac Referrals: Will Shukla MD [Primary Care Provider] - Keep Mireya appointment Additional Instructions: Use [id number] pain medication as needed for further chest pain. Keep your appointment tomorrow with your primary care doctor. If you have any worsening of your condition or any new concerning symptoms, please return immediately to the emergency department for another evaluation.
== END 2018-07-03 22:13 | disposition home or self-care (01) ==
PROVIDERS: Emergency Provider Emergency Medicine; Family Provider Family Medicine; PCP Family Medicine
DX: R07.89 Other chest pain (principal); E66.9 Obesity, unspecified; M54.9 Dorsalgia, unspecified; R06.00 Dyspnea, unspecified; E11.9 Type 2 diabetes mellitus without complications; Q05.9 Spina bifida, unspecified; M79.89 Other specified soft tissue disorders; R20.0 Anesthesia of skin; R06.02 Shortness of breath
CPT/HCPCS: 71046; 80048; 83880; 84443; 84484; 85025; 85379; 93005; 96374; 99285; A4216

== ENCOUNTER 2018-07-17 12:27 | Emergency (ER) | payer MEDICARE, MEDICAID, SELFPAY ==
[2018-07-03 17:32] VITALS: BMI 44.0
[2018-07-17 12:27] VITALS: BP 152/100; PULSE 106; RESP 18; TEMP 36.6; O2SAT 97; BMI 45.3
--- NOTE | 2018-07-17 12:44 | CT_ITS ---
STUDY: CT BRAIN WITHOUT CONTRAST REASON FOR EXAM: Female, 37 years old. Headaches and blurred vision. History of spina bifida. Neurogenic bladder. RADIATION DOSAGE (If Supplied By Facility): CTDIvol = ( 44.99 ) mGy, DLP = ( 694.87 ) mGycm TECHNIQUE: Transaxial CT imaging of the brain was performed without administration of intravenous contrast material. Individualized dose optimization techniques were used for this CT. COMPARISON: Comparison is made with prior examination dated March 07, 2018. FINDINGS: Normal soft tissue structures. Normal calvarium. Normal size ventricles and extra-axial spaces for the patient's age. Normal white matter tracts of the cerebral hemispheres. Normal basal ganglia and thalami. Normal brainstem. Normal cerebellum. There is no intracranial hemorrhage. There are no findings of an acute ischemic infarction. Partial opacification of the ethmoid sinuses bilaterally. CT/Brain/Head without Contrast IMPRESSION: Normal unenhanced CT scan of the brain. Partial opacification of the ethmoid sinuses bilaterally. Electronically Signed: Stephan Sood MD at 13:23 EST , Service support ,
[2018-07-17 13:23] LABS: Absolute Lymphocyte Count 1.76 X10^3/ul (0.83-4.51); Absolute Neutrophil Count 6.9 X10^3/uL (2.0-7.7); Basophil# 0.05 X10^3/uL; Basophil% 0.5 % (0-1); Eosinophil# 0.41 X10^3/uL; Eosinophils% 4.1 % (0-5); Hematocrit 38.4 % (37-47); Hemoglobin 12.3 g/dl (12.0-15.0); Lymphocyte # 1.76 X10^3/ul (4.0); Lymphocyte % 17.5 % (19-41); Mean Corpuscular Hgb 28.9 pg (27.0-32.0); Mean Corpuscular Volume 90.4 fL (81-99); Mean Platelet Vol. 10.5 fl (6.2-12.0); Monocyte# 0.92 X10^3/uL; Monocyte% 9.1 % (0-10); Neutrophil # 6.85 X10^3/uL (2.7-7.7); Neutrophil % 68.1 % (47-70); POSITIVE COUNT NO; POSITIVE DIFFERENTIAL NO; POSITIVE MORPHOLOGY NO; Platelet Count 203 K/mm3 (150-450); Red Blood Count 4.25 M/mm3 (4.2-5.4); White Blood Count 10.1 K/mm3 (4.4-11.0)
[2018-07-17 13:29] LABS: Prothrombin Time (Protime)PT. 12.9 SECONDS (11.7-14.9)
[2018-07-17 13:30] LABS: Partial Thromboplast Time 30.3 Seconds (24.1-36.2)
[2018-07-17 13:42] LABS: ALB/GLOB Ratio 0.8 RATIO (0.9-2.4); AST(SGOT) 49 U/L (15-37); Alanine Aminotransfer ALT/SGPT 42 U/L (13-56); Albumin, Serum 3.5 g/dL (3.2-5.0); Alkaline Phosphatase 84 U/L (45-117); Anion Gap 6 (5-15); BUN 11 mg/dL (7-18); BUN/Creat Ratio 11.2 RATIO (10-20); Calcium,Total 9.3 mg/dL (8.5-10.1); Chloride 102 mmol/L (98-107); Creatinine, Serum 0.99 mg/dL (0.55-1.02); EST Glomerular Filtration Rate 68 mL/min (>60); Est Glom Filt Rate - Afr Amer 82 mL/min (>60); Estimated Creatinine Clearance 62.13 ml/min; Globulin 4.4 g/dL (2.2-4.2); Glucose 256 mg/dL (74-106); Potassium 3.7 mmol/L (3.5-5.1); Protein, Total 7.9 g/dL (6.4-8.2); Sodium Level 136 mmol/L (136-145)
--- NOTE | 2018-07-17 15:31 | ED.VISSUMM ---
- ER Visit Summary Date of Service: 07/17/18 Chief Complaint: Throbbing global headache with binocular blurred vision, bilateral lower extremity edema and the multiple symptoms History of Present Illness: The patient is a 37 F who has history of type 2 diabetes, neurogenic bladder and bowel secondary to spina bifida status post multiple lumbar spine surgeries who was sent by PCP to evaluate the 2 major chief complaints. She denies fever, chills night sweats. Denies weight gain or weight loss. She does complain of change in vision and blurred vision by ocular. Denies double vision. Denies loss of vision. She denies tunnel vision. She denies ear pain, ringing or ears or decreased hearing. She denies rhinorrhea, congestion or postnasal drainage. Denies sore throat. She denies neck pain or neck stiffness. She denies chest pain or palpitation. No shortness of breath, cough or dyspnea on exertion. She denies abdominal pain, nausea, vomiting or diarrhea. She denies urologic symptoms. She denies any new back pain. She denies weakness or paresthesia that is new. She is on no anticoagulant. Physical Examination: Vital signs noted and blood pressure is elevated 152/100. Head is atraumatic no cephalic. Pupils equal round reactive paradoxic muscle intact. Sclerae anicteric. Funduscopic exam limited since patient was not dilated. Cup-to-disc ratio appears normal. There is no papilledema. Unable to discern if there was venous pulsation. TMs normal. Neck supple. Negative Kernig's Babinski sign. No carotid bruit. Heart is regular without murmur, gallop or rub. S1 and S2 are normal. Lungs are clear to auscultation with good movement of air bilaterally. Abdomen soft nontender bowel sounds present normal. Back is remarkable for multiple well-healed scars without infection. Lower extremity ultrasound station marked lymphedema. Unable to palpate DP or PT pulse because of the edema. Patient states she has had lymphedema for 2-3 months. She was placed on diuretic with no improvement. She is alert and oriented x3. Motor is 5 5 upper extremity. Diminished lower extremity. Reflexes are symmetric at 2+ biceps, brachialis, triceps, patella and ankle. Sensation is intact. Cerebellar testingwas normal. Cranial 2 through 12 normal. Test Results: CT of the head interpreted radiologist unremarkable. Blood work which included a CBC is unremarkable. Coags normal. Basic minimal panel markable for glucose of 256. Albumin was normal. Emergency Department Course and Treatment: To evaluate chronic lymphedema not improving with diuretics comment minimal panel was obtained to assess albumin as well as electrolytes. CBC to evaluate for anemia and white count. Coags since patient will require LP under fluoroscopy. Case was discussed with Dr. Valderrama who was willing to perform procedure. Because of the time of day patient was scheduled for outpatient lumbar puncture under fluoroscopy by Dr. Tamayo tomorrow at 11 AM, July 18. Treatment Plan: Outpatient lumbar puncture to assess pressure and evaluate for idiopathic intracranial hypertension, pseudotumor cerebri Disposition: Discharged home with outpatient LP Impression: 1. Global headache with change in vision evaluate for pseudotumor cerebri 2. Bilateral lymphedema, chronic 3. Hyperglycemia and type II diabetic 4. History of spina bifida with neurogenic bladder and neurogenic bowel. This note was generated with [employer] dictation software. It may contain incorrect words, spelling, and punctuation that were not noted in review of the chart prior to signing ED Disposition - Plan for ED Patient: Disposition: Home or Assisted Living Instructions: ED Cephalgia Unspecified, ED Lymphedema Referrals: Will Shukla MD [Primary Care Provider] - Additional Instructions: You are permitted to have a light breakfast tomorrow morning. You need to present to registration at 1030 for your scheduled LP at 11 AM.
== END 2018-07-17 15:50 | disposition home or self-care (01) ==
PROVIDERS: Emergency Provider Emergency Medicine; Family Provider Family Medicine; PCP Family Medicine
DX: R51 Headache (principal); H53.8 Other visual disturbances; I89.0 Lymphedema, not elsewhere classified; E11.65 Type 2 diabetes mellitus with hyperglycemia; K59.2 Neurogenic bowel, not elsewhere classified; Q05.9 Spina bifida, unspecified; N31.9 Neuromuscular dysfunction of bladder, unspecified; Z72.0 Tobacco use
CPT/HCPCS: 70450; 80053; 85025; 85610; 85730; 99283; A4216

== ENCOUNTER 2018-07-28 23:10 | Emergency (ER) | payer MEDICARE, MEDICAID, SELFPAY ==
[2018-07-28 23:10] VITALS: BP 119/77; PULSE 76; RESP 14; TEMP 36.2; O2SAT 99; BMI 44.0
--- NOTE | 2018-07-28 23:27 | ED.VISSUMM ---
- ER Visit Summary Date of Service: 07/28/18 Chief Complaint: Headache History of Present Illness: The patient is a 37 F presents to the emergency department headache. Patient has a long-standing history of headaches. States today, her blood sugar was running high. She states that there was about 300. She states this is not abnormal for her. She states today, she began to have a dull headache with nausea and vomiting. She states that she also felt confused which is not atypical with her history of migraines. Patient had the same presentation about 2 weeks ago. She was scheduled to have an outpatient lumbar puncture to rule out pseudotumor. She did not follow-up for it. She denies any trauma. She denies fevers or chills. She denies any other change of medications. Physical Examination: Vital signs reviewed General: Well-nourished, well-developed Head: Normocephalic, atraumatic Eyes: Pupils equal and reactive, extraocular muscles intact Neck, supple, no lymphadenopathy Heart: Regular rate and rhythm Respiratory: No distress, clear bilaterally Abdomen: Soft, nontender, nondistended, no peritoneal signs Back: Nontender Extremities: Nontender, no edema, no cords Skin: Normal color no rash Neuro: Alert and oriented, no focal or lateralizing deficits Test Results: [] Emergency Department Course and Treatment: The patient presents with her normal headache and then a syncopal episode. I did review her CT from 2 weeks ago which was unremarkable. The patient was to have an outpatient lumbar puncture, but did not make it and has not rescheduled it. She is not meningitic. She is nonencephalopathic. I did obtain lab work which is unremarkable. Patient was treated with migraine abortive medications with improvement. At this time, I do feel that she is safe for outpatient therapy. I do not suspect a dangerous cause of her symptoms. I did consumer credit counselor her that she needs to follow-up for her outpatient lumbar puncture. I have no concern for meningitis or other dangerous process where this will need to be done emergently. Treatment Plan: [] Disposition: [] Impression: Urge 1. Migraine headache 2. Syncope This note was generated with [employer] software. It may contain incorrect words, spelling, and punctuation that were not noted in review of the chart prior to signing ED Disposition - Plan for ED Patient: Instructions: ED Fainting Unkn Cause Referrals: Will Shukla MD [Primary Care Provider] -
[2018-07-28] MEDS: proCHLORPERazine 10 MG/2 ML Vial IV (23:44)
[2018-07-28] MEDS: DiphenhydrAMINE 50 MG/ML Syringe IV (23:44)
[2018-07-28] MEDS: 0.9% Normal Saline 1,000 ML 1000 ML IV (23:44)
[2018-07-28] MEDS: Ketorolac 15 MG/ML Vial IV (23:44)
[2018-07-28 23:59] LABS: Absolute Lymphocyte Count 2.65 X10^3/ul (0.83-4.51); Absolute Neutrophil Count 6.5 X10^3/uL (2.0-7.7); Basophil# 0.06 X10^3/uL; Basophil% 0.6 % (0-1); Eosinophil# 0.42 X10^3/uL; Eosinophils% 3.9 % (0-5); Hematocrit 39.6 % (37-47); Hemoglobin 12.6 g/dl (12.0-15.0); Lymphocyte # 2.65 X10^3/ul (4.0); Lymphocyte % 24.7 % (19-41); Mean Corp Hgb Conc 31.8 g/gl (32-36); Mean Corpuscular Volume 91.2 fL (81-99); Mean Platelet Vol. 10.7 fl (6.2-12.0); Monocyte# 1.02 X10^3/uL; Monocyte% 9.5 % (0-10); Neutrophil # 6.51 X10^3/uL (2.7-7.7); Neutrophil % 60.6 % (47-70); Platelet Count 234 K/mm3 (150-450); RBC Distribution Width CV 13.8 % (11.6-14.6); RBC Distribution Width SD 45.3 fl (35.1-43.9); Red Blood Count 4.34 M/mm3 (4.2-5.4); White Blood Count 10.7 K/mm3 (4.4-11.0)
[2018-07-29] LABS: POSITIVE COUNT NO; POSITIVE DIFFERENTIAL NO; POSITIVE MORPHOLOGY NO
[2018-07-29 00:22] LABS: Anion Gap 8 (5-15); BUN 13 mg/dL (7-18); BUN/Creat Ratio 13.1 RATIO (10-20); Calcium,Total 9.2 mg/dL (8.5-10.1); Chloride 101 mmol/L (98-107); Creatinine, Serum 0.99 mg/dL (0.55-1.02); EST Glomerular Filtration Rate 67 mL/min (>60); Est Glom Filt Rate - Afr Amer 81 mL/min (>60); Estimated Creatinine Clearance 62.13 ml/min; Glucose 265 mg/dL (74-106); Potassium 3.6 mmol/L (3.5-5.1); Sodium Level 136 mmol/L (136-145)
[2018-07-29] MEDS: LORazepam 2 MG/ML Syringe 1 MG IV (00:32)
[2018-07-29 01:01] VITALS: BP 150/91; PULSE 89; RESP 16; O2SAT 97
== END 2018-07-29 01:01 | disposition home or self-care (01) ==
LOC: ED 07-29 00:03
PROVIDERS: Emergency Provider Emergency Medicine; Family Provider Family Medicine; PCP Family Medicine
DX: G43.909 Migraine, unspecified, not intractable, without status migrainosus (principal); R55 Syncope and collapse; E11.9 Type 2 diabetes mellitus without complications
CPT/HCPCS: 80048; 85025; 96361; 96374; 96375; 99284; J7030; A4216

== ENCOUNTER 2018-08-13 13:46 | Emergency (ER) | payer MEDICARE, MEDICAID, SELFPAY ==
[2018-08-13 13:48] VITALS: BP 159/99; PULSE 85; RESP 17; TEMP 36.8; O2SAT 100; BMI 44.9
--- NOTE | 2018-08-13 14:10 | RAD_ITS ---
STUDY: X-RAY - LEFT TIBIA AND FIBULA REASON FOR EXAM: Female, 37 years old. left lower leg swelling and pain, patient states she has had bilateral lower leg swelling for months TECHNIQUE: 2 view(s) of the tibia and fibula were obtained. COMPARISON: None. FINDINGS: Normal visualized tibia. Normal visualized fibula. There is non-specific soft tissue swelling. RAD/Tibia & Fibula 2 Views IMPRESSION: There is non-specific soft tissue swelling. Electronically Signed: Reymundo Cespedes, at 15:17 EDT Tel , Service support ,
--- NOTE | 2018-08-13 14:23 | ED.VISSUMM ---
- ER Visit Summary Date of Service: 08/13/18 Chief Complaint: Leg swelling History of Present Illness: The patient is a 37 F who presents the emergency department with several months of increasing leg swelling. She tells me she takes Lasix 10 mg a day. She has not seen her doctor for this since beginning of last month. Today she went to stand up and felt a pop near her ankle. She states that she called her doctor's office and they advised her to come to the emergency department. Physical Examination: Afebrile vital signs stable Gen: Well-nourished well-developed Head: Normocephalic atraumatic Eyes: Perrl EOMI ENT: TMs clear no rhinorrhea moist mucous membranes Neck: Supple no lymphadenopathy no JVD nontender CVS: Regular rate rhythm no murmurs normal S1-S2 Respiratory: No distress clear to auscultation bilaterally chest nontender Abdomen: Soft nontender nondistended normal bowel sounds no masses Back: Nontender Extremity: Bilateral equal lower extremity edema at 2+. There are no cords. No color changes. The patient is tender over the distal tibia and fibula. Skin: Normal color no rash Neuro: alert orientated ?3 CN II-XII intact normal strength sensation reflexes gait cerebellar Psych: Normal affect normal mood Test Results: X-rays were negative for fracture Emergency Department Course and Treatment: I do not believe this to be DVT as the is symmetrically edematous. She will use an Carlos wrap over the left ankle. I will put her on Lasix 60 mg twice a day for the next several days of asked for early follow-up with her doctor at the end of the week. Impression: 1. Left leg pain 2. Lymphedema This note was generated with [employer] dictation software. It may contain incorrect words, spelling, and punctuation that were not noted in review of the chart prior to signing ED Disposition - Plan for ED Patient: Disposition: Home or Assisted Living Instructions: ED Lymphedema Prescriptions: Furosemide [Lasix] 60 mg PO BID #30 tab Referrals: Will Shukla MD [Primary Care Provider] - 1 Week
--- NOTE | 2018-08-13 14:50 | ED.RN ---
pt very angry upon this rn entering room. states wants checked for dvt. talked with dr virgen. states no concern for blood clot. richard wrap applied toleft ankle. pt angry
[2018-08-13 14:52] VITALS: BP 140/78; PULSE 80; RESP 18; O2SAT 96
== END 2018-08-13 14:58 | disposition home or self-care (01) ==
PROVIDERS: Emergency Provider Emergency Medicine; Family Provider Family Medicine; PCP Family Medicine
DX: M79.605 Pain in left leg (principal); I89.0 Lymphedema, not elsewhere classified; E11.9 Type 2 diabetes mellitus without complications; Q05.9 Spina bifida, unspecified
CPT/HCPCS: 73590; 99282

== ENCOUNTER → 2018-08-14 12:06 | Outpatient (CLI) | payer MEDICARE, MEDICAID, SELFPAY ==
[2018-08-13 13:48] VITALS: BMI 44.9
[2018-08-14 12:39] LABS: Anion Gap 7 (5-15); BUN 10 mg/dL (7-18); BUN/Creat Ratio 10.7 RATIO (10-20); Calcium,Total 8.6 mg/dL (8.5-10.1); Chloride 102 mmol/L (98-107); Creatinine, Serum 0.94 mg/dL (0.55-1.02); EST Glomerular Filtration Rate 72 mL/min (>60); Est Glom Filt Rate - Afr Amer 87 mL/min (>60); Glucose 229 mg/dL (74-106); Potassium 3.7 mmol/L (3.5-5.1); Sodium Level 136 mmol/L (136-145)
[2018-08-14 12:48] LABS: Absolute Lymphocyte Count 2.02 X10^3/ul (0.83-4.51); Absolute Neutrophil Count 6.5 X10^3/uL (2.0-7.7); Basophil# 0.06 X10^3/uL; Basophil% 0.6 % (0-1); Eosinophil# 0.38 X10^3/uL; Hematocrit 39.2 % (37-47); Hemoglobin 12.4 g/dl (12.0-15.0); Lymphocyte # 2.02 X10^3/ul (4.0); Lymphocyte % 21.2 % (19-41); Mean Corp Hgb Conc 31.6 g/gl (32-36); Mean Corpuscular Hgb 28.5 pg (27.0-32.0); Mean Corpuscular Volume 90.1 fL (81-99); Monocyte# 0.59 X10^3/uL; Monocyte% 6.2 % (0-10); Neutrophil # 6.46 X10^3/uL (2.7-7.7); Neutrophil % 67.6 % (47-70); Platelet Count 236 K/mm3 (150-450); RBC Distribution Width CV 14.4 % (11.6-14.6); RBC Distribution Width SD 47.1 fl (35.1-43.9); Red Blood Count 4.35 M/mm3 (4.2-5.4); White Blood Count 9.6 K/mm3 (4.4-11.0)
[2018-08-14 12:49] LABS: POSITIVE COUNT NO; POSITIVE DIFFERENTIAL NO; POSITIVE MORPHOLOGY NO
[2018-08-14 12:59] LABS: D-Dimer Quantitative (DVT/PE) 0.64 FEU/ug/m (0.27-0.49)
[2018-08-14 13:06] LABS: BNP,B-Type NATRIURETIC PEPTIDE 5.9 pg/mL (0-100)
--- NOTE | 2018-08-14 15:28 | VDLE_ITS ---
Reason For Study: LEG PAIN AND SWELLING RIGHT LEFT CFV is compressible, spontaneous, phasic, GSV is normal. competent and demonstrates normal CFV is compressible, spontaneous, phasic, augmentation. competent, and demonstrates normal GSV is normal. augmentation. FV is compressible, spontaneous, phasic, FV is compressible, spontaneous, phasic, competent and demonstrates normal competent and demonstrates normal augmentation. augmentation. POP V is compressible, spontaneous, phasic, POP V is compressible, spontaneous, phasic, competent and demonstrates normal competent and demonstrates normal augmentation. augmentation. T/P Trunk is compressible. T/P Trunk is compressible. PTV is compressible. PTV is compressible. RT PerV is compressible. Procedure Exam performed in department. Technically difficult due to body habitus. Interpretation Summary Deep veins of the lower extremities are bilaterally patent and compressible segmentally. There is no evidence of deep vein thrombosis on either side. Valvular competence appears intact within the proximal deep venous systems bilaterally. The greater saphenous veins appear bilaterally patent and compressible segmentally. Ordering Physician: Netta Higgins Referring Physician: Will Shukla Performed By: Nancy Caballero RVT
== END ==
LOC: LABSPEC 14:18 → CVS 15:28
PROVIDERS: Family Provider Family Medicine; PCP Family Medicine; Referring Provider Physician Assistant; Visit Provider Physician Assistant
DX: M79.89 Other specified soft tissue disorders (principal); R06.02 Shortness of breath; M79.604 Pain in right leg; M79.605 Pain in left leg
CPT/HCPCS: 80048; 83880; 85025; 85379; 93970

== ENCOUNTER 2018-08-16 16:21 | Emergency (ER) | payer MEDICARE, MEDICAID, SELFPAY ==
[2018-08-16 16:22] VITALS: BP 179/101; PULSE 87; RESP 16; TEMP 36.7; O2SAT 99; BMI 44.6
[2018-08-16 17:01] LABS: Bacteria 0 SEEN /hpf (None Seen); Mucous, Urine 0 SEEN /hpf (<or=2+)
[2018-08-16 17:02] LABS: Color, Urine Yellow (Yellow); Glucose, Dipstick 1000 mg/dl (Normal); Ketone-Dipstick Negative (Negative); Leukocyte Esterase-Dipstick 500 /ul (Negative); Nitrite-Dipstick Negative (Negative); Occult Blood-Urine Negative /ul (Negative); Protein-Dipstick 15 mg/dl (Negative); Specific Gravity, Urine 1.015 (1.002-1.030); Urine Bilirubin Dipstick Negative (Negative); Urine Clarity Clear (Clear); Urine Urobilinogen Normal (Normal); Urine pH 6.5 (5.0 - 8.0)
[2018-08-16] MEDS: 0.9% Normal Saline 1,000 ML 1000 ML IV (17:10)
[2018-08-16] MEDS: Ketorolac 30 MG/ML Syringe IV (17:10)
[2018-08-16] MEDS: Ondansetron 4 MG/2 ML Vial IV (17:10)
[2018-08-16 17:11] LABS: Red Blood Cells-Urine 0-5 SEEN /hpf (0-5); Squamous Epithelial Cells - UA 0-5 SEEN /hpf (5-10); White Blood Cells 0-5 SEEN /hpf (0-5)
[2018-08-16 17:32] LABS: Absolute Lymphocyte Count 2.07 X10^3/ul (0.83-4.51); Absolute Neutrophil Count 6.9 X10^3/uL (2.0-7.7); Basophil# 0.05 X10^3/uL; Basophil% 0.5 % (0-1); Eosinophil# 0.29 X10^3/uL; Eosinophils% 2.8 % (0-5); Hematocrit 39.2 % (37-47); Hemoglobin 12.6 g/dl (12.0-15.0); Lymphocyte # 2.07 X10^3/ul (4.0); Lymphocyte % 20.2 % (19-41); Mean Corp Hgb Conc 32.1 g/gl (32-36); Mean Corpuscular Hgb 29.5 pg (27.0-32.0); Mean Corpuscular Volume 91.8 fL (81-99); Monocyte# 0.89 X10^3/uL; Monocyte% 8.7 % (0-10); Neutrophil # 6.86 X10^3/uL (2.7-7.7); Neutrophil % 66.8 % (47-70); Platelet Count 203 K/mm3 (150-450); RBC Distribution Width CV 14.3 % (11.6-14.6); RBC Distribution Width SD 46.9 fl (35.1-43.9); Red Blood Count 4.27 M/mm3 (4.2-5.4); White Blood Count 10.3 K/mm3 (4.4-11.0)
[2018-08-16 17:33] LABS: POSITIVE COUNT NO; POSITIVE DIFFERENTIAL NO; POSITIVE MORPHOLOGY NO
[2018-08-16 17:43] LABS: ALB/GLOB Ratio 0.8 RATIO (0.9-2.4); AST(SGOT) 37 U/L (15-37); Alanine Aminotransfer ALT/SGPT 40 U/L (13-56); Albumin, Serum 3.5 g/dL (3.2-5.0); Alkaline Phosphatase 91 U/L (45-117); Anion Gap 7 (5-15); BUN 11 mg/dL (7-18); BUN/Creat Ratio 10.6 RATIO (10-20); Calcium,Total 8.5 mg/dL (8.5-10.1); Chloride 105 mmol/L (98-107); Creatinine, Serum 1.04 mg/dL (0.55-1.02); EST Glomerular Filtration Rate 64 mL/min (>60); Est Glom Filt Rate - Afr Amer 77 mL/min (>60); Estimated Creatinine Clearance 59.15 ml/min; Globulin 4.6 g/dL (2.2-4.2); Glucose 264 mg/dL (74-106); Lipase 151 U/L (73-393); Potassium 3.5 mmol/L (3.5-5.1); Protein, Total 8.1 g/dL (6.4-8.2); Sodium Level 140 mmol/L (136-145)
[2018-08-16 18:22] VITALS: BP 148/79; PULSE 78; RESP 16; O2SAT 100
[2018-08-16 18:31] LABS: Pregnancy, Serum, hCG Quali. NEGATIVE Negative (0-9 Nonpreg)
--- NOTE | 2018-08-16 19:16 | ED.VISSUMM ---
- ER Visit Summary Date of Service: 08/16/18 Chief Complaint: Dysuria and abdominal pain History of Present Illness: The patient is a [address] Shukla. She reports that she has had dysuria off and on for the past 3 weeks. States that she is been to see the nurse practitioner twice this week. She got an IM dose of Rocephin yesterday. States that she had a urine culture obtained and the results are not available yet. States that she was on Augmentin and finished this yesterday. Patient reports that she has diffuse abdominal pain that has been present over the same timeframe. States that it is a throbbing pain is 9 out of 10 in severity. She reports that she is scheduled to have a CT scan tomorrow and because of this she stopped her metformin today. She has had nausea without vomiting. No diarrhea. No melena or hematochezia. States her last menstrual period was 3 weeks ago. She denies any vaginal bleeding or discharge. Physical Examination: Vitals: Stable. Afebrile. General: Well-nourished and well-developed. Head: Normocephalic atraumatic. Neck: Supple, no lymphadenopathy. No JVD. Nontender. Cardiovascular: Regular rate and rhythm. No murmurs. Respiratory: No respiratory distress. Clear to auscultation bilaterally. Abdominal: Soft, mild diffuse tenderness to palpation, nondistended, normal bowel sounds. No guarding, rebound, or peritoneal signs. Back: Nontender. Extremities: Nontender, no edema. Skin: Normal color, no rash. Neurologic: Alert and oriented ?3. Cranial nerves II through XII are intact. Normal strength and sensation. Psych: Normal affect. Test Results: CBC is normal. Chem-7 is more for glucose of 264 and creatinine 1.04. LFTs are remarkable for a globulin of 4.6. Lipase is normal. UA shows no evidence of infection. test was negative. Emergency Department Course and Treatment: I did obtain the UA from [facility]. It was a dip UA that showed glucose, blood, protein, leukocytes. Culture is not back yet. Patient was treated with Toradol and Zofran IV. She is resting comfortably. She does have a care plan in the emergency department and is aware of this. Treatment Plan: Patient will be discharged with Zofran. Instructed to get a CT scan tomorrow as previously scheduled. Follow-up with her primary care physician for further evaluation and treatment. Disposition: To home in improved and stable condition. Impression: 1. Abdominal pain, uncertain cause. This note was generated with [employer] dictation software. It may contain incorrect words, spelling, and punctuation that were not noted in review of the chart prior to signing ED Disposition - Plan for ED Patient: Disposition: Home or Assisted Living Instructions: ED Abdominal Pain Unkn Cause Prescriptions: Ondansetron [Zofran Odt] 4 mg PO Q8H PRN PRN #10 tablet PRN Reason: Nausea Referrals: Will Shukla MD [Primary Care Provider] - 1-2 Days if not improving
== END 2018-08-16 19:32 | disposition home or self-care (01) ==
LOC: ED 16:50
PROVIDERS: Emergency Provider Emergency Medicine; Family Provider Family Medicine; PCP Family Medicine
DX: R10.9 Unspecified abdominal pain (principal); R30.0 Dysuria; R35.0 Frequency of micturition; R05 Cough; E11.9 Type 2 diabetes mellitus without complications; Q05.9 Spina bifida, unspecified
CPT/HCPCS: 80053; 81001; 83690; 84703; 85025; 96361; 96374; 96375; 99283; J7030; A4216; J2405

== ENCOUNTER 2018-08-28 17:45 | Inpatient (IN) | payer MEDICARE, MEDICAID, SELFPAY ==
[2018-08-28] VITALS (9 sets, daily range): BP systolic 103–141; BP diastolic 65–80; PULSE 72–107; RESP 15–26; TEMP 37.1–38.7; O2SAT 97–100; BMI 44.9; BMI 44.4; BMI 44.5
--- NOTE | 2018-08-28 18:27 | EKG12_ITS ---
Test Reason : Blood Pressure : / mmHG Vent. Rate : 095 BPM Atrial Rate : 095 BPM P-R Int : 132 ms QRS Dur : 088 ms QT Int : 358 ms P-R-T Axes : 036 060 040 degrees QTc Int : 449 ms Normal sinus rhythm Low voltage QRS Borderline ECG Confirmed by XAVIER PAULSON ([id number]), business editor WILBUR FARRAR ([id number]) on 08/31/2018 11:10:00 AM Referred By: Gen Butt Confirmed By:XAVIER PAULSON
[2018-08-28 19:03] LABS: Absolute Lymphocyte Count 1.62 X10^3/ul (0.83-4.51); Absolute Neutrophil Count 13.1 X10^3/uL (2.0-7.7); Basophil# 0.04 X10^3/uL; Basophil% 0.2 % (0-1); Differential Indicated SCAN CRITERIA MET; Eosinophil# 0.09 X10^3/uL; Eosinophils% 0.5 % (0-5); Hematocrit 33.4 % (37-47); Hemoglobin 10.9 g/dl (12.0-15.0); Lymphocyte # 1.62 X10^3/ul (4.0); Lymphocyte % 9.8 % (19-41); Mean Corp Hgb Conc 32.6 g/gl (32-36); Mean Corpuscular Hgb 28.8 pg (27.0-32.0); Mean Corpuscular Volume 88.4 fL (81-99); Mean Platelet Vol. 10.5 fl (6.2-12.0); Monocyte# 1.54 X10^3/uL; Monocyte% 9.3 % (0-10); Neutrophil # 13.13 X10^3/uL (2.7-7.7); Neutrophil % 79.8 % (47-70); POSITIVE COUNT NO; POSITIVE DIFFERENTIAL YES; POSITIVE MORPHOLOGY YES; Platelet Count 206 K/mm3 (150-450); RBC Distribution Width CV 14.5 % (11.6-14.6); Red Blood Count 3.78 M/mm3 (4.2-5.4); White Blood Count 16.5 K/mm3 (4.4-11.0)
[2018-08-28 19:04] LABS: International Normalized Ratio 1.1
[2018-08-28] MEDS: Acetaminophen 500 MG Tablet 1000 MG PO (19:04)
[2018-08-28 19:05] LABS: Partial Thromboplast Time 38.2 Seconds (24.1-36.2)
[2018-08-28] MEDS: 0.9% Normal Saline 1,000 ML 150 ML IV (19:05)
[2018-08-28 19:10] LABS: Bacteria 0 SEEN /hpf (None Seen); Mucous, Urine 0 SEEN /hpf (<or=2+); Red Blood Cells-Urine 0 SEEN /hpf (0-5)
[2018-08-28] MEDS: Morphine 4 MG/ML Syringe IV (19:10)
[2018-08-28] MEDS: Ondansetron 4 MG/2 ML Vial IV (19:10)
[2018-08-28 19:11] LABS: ALB/GLOB Ratio 0.7 RATIO (0.9-2.4); AST(SGOT) 27 U/L (15-37); Alanine Aminotransfer ALT/SGPT 41 U/L (13-56); Alkaline Phosphatase 112 U/L (45-117); Anion Gap 8 (5-15); BUN 9 mg/dL (7-18); Calcium,Total 8.5 mg/dL (8.5-10.1); Chloride 103 mmol/L (98-107); Creatinine, Serum 1.13 mg/dL (0.55-1.02); EST Glomerular Filtration Rate 58 mL/min (>60); Est Glom Filt Rate - Afr Amer 70 mL/min (>60); Estimated Creatinine Clearance 54.44 ml/min; Globulin 4.5 g/dL (2.2-4.2); Glucose 195 mg/dL (74-106); Protein, Total 7.5 g/dL (6.4-8.2); Sodium Level 135 mmol/L (136-145)
[2018-08-28 19:15] LABS: Lactic Acid 1.2 mmol/L (0.4-2.0)
[2018-08-28 19:34] LABS: Color, Urine Yellow (Yellow); Glucose, Dipstick 250 mg/dl (Normal); Ketone-Dipstick 15 mg/dl (Negative); Leukocyte Esterase-Dipstick Negative /ul (Negative); Nitrite-Dipstick Negative (Negative); Occult Blood-Urine Negative /ul (Negative); Protein-Dipstick 30 mg/dl (Negative); Urine Bilirubin Dipstick Negative (Negative); Urine Clarity Clear (Clear); Urine Urobilinogen 4 mg/dl (Normal)
[2018-08-28 19:41] LABS: Squamous Epithelial Cells - UA 0-5 SEEN /hpf (5-10); White Blood Cells 0-5 SEEN /hpf (0-5)
[2018-08-28 19:42] LABS: Differential Comment SCANNED
[2018-08-28 19:44] LABS: Pregnancy, Serum, hCG Quali. NEGATIVE Negative (0-9 Nonpreg)
--- NOTE | 2018-08-28 21:17 | HP.PCM_ITS ---
Problem List (1) Sepsis due to cellulitis Status: Acute History of Present Illness Date of Admission: 08/28/18 Chief Complaint: left leg pain and redness The patient is a 37 year old F diabetes mellitus, anxiety disorder; spinal bifida who presented with left leg redness and pain that started a day before her admission. Associated with her symptoms is a fever with highest temperature of 102 at home; chills; and anorexia;nausea without vomiting. On arrival to the emergency department her initial temperature was 101.7. A couple of day before her symptoms started patient noted a blisters on the heal of her left heel. While at the emergency department patient noted that her right leg has also started to be red. She reported a history of blisters on the legs. Because of Spinal bifida her left foot is normal. She has had 2 foot surgery. She reports a history of blisters for which she was told to use Neosporin and gauze anytime she has blisters. She has a history of osteomyelitis and MRSA. She follows up with podiatry at [facility]. At the emergency department patient was also found to have tachypnea; tachycardia; and leukocytosis with white count of 16.5. Her lactic acid was unremarkable. Blood cultures were obtained and patient was started on vancomycin. Past Medical History Past Medical History (Chronic Problems): Chronic Problems (Last Reviewed 08/29/18 @ 04:32 by Gne Butt MD) Hydronephrosis (Chronic) Neurogenic bowel (Chronic) Neurogenic bladder (Chronic) Chronic back pain (Chronic) History of migraine (Chronic) Depression (Chronic) Spina bifida aperta of lumbar spine (Chronic) s/p surgery x 2 weakness and numbness in legs neurogenic bladder and frequent UTIs Non-compliance (Chronic) Morbid obesity with BMI of 40.0-44.9, adult (Chronic) Diabetes mellitus, type II (Chronic) Hydronephrosis of right kidney (Chronic) Consult dictated, For now Treat UTI and make sure pt does self cath. Will follow, no need yet for cysto retros etc. But this may change in future 13 Sept Re-admitted consult dictated Medical History: Medical History (Last Reviewed 08/29/18 @ 04:32 by Gen Butt MD) Neurogenic bowel (Chronic) K59.2 Neurogenic bladder (Chronic) N31.9 Chronic back pain (Chronic) M54.9, G89.29 History of migraine (Chronic) Z86.69 Depression (Chronic) F32.9 Spina bifida aperta of lumbar spine (Chronic) Q05.7 s/p surgery x 2 weakness and numbness in legs neurogenic bladder and frequent UTIs Non-compliance (Chronic) Z91.19 Morbid obesity with BMI of 40.0-44.9, adult (Chronic) E66.01, Z68.41 Diabetes mellitus, type II (Chronic) E11.9 Nausea and vomiting (Acute) R11.2 Hydronephrosis of right kidney (Chronic) N13.30 Consult dictated, For now Treat UTI and make sure pt does self cath. Will follow, no need yet for cysto retros etc. But this may change in future 13 Jan Re-admitted consult dictated UTI (urinary tract infection) (Resolved) N39.0 Allergies mushroom Allergy (Verified 08/28/18 17:46) Anaphylaxis peanut Allergy (Verified 08/28/18 17:46) Anaphylaxis Gadolinium-MRI Contrast Medium Adverse Reaction (Verified 08/28/18 17:46) Vomiting Home Medications: Ambulatory Orders Medication Instructions Recorded Metformin(XR) [Glucophage Xr] 1,000 mg PO BID 06/19/16 Atorvastatin Calcium [Lipitor] 10 mg PO QHS 11/07/17 Pseudoephedrine HCl [Sudogest] 30 mg PO Q6H PRN PRN 01/21/18 Pregabalin [Lyrica] 75 mg PO DAILY 02/25/18 Buspirone HCl 15 mg PO BID 04/11/18 Polyethylene Glycol 3350 [Miralax] 17 gm PO DAILY PRN 04/13/18 Liraglutide [Victoza] 1.2 mg SQ DAILY 07/03/18 Duloxetine HCl 60 mg PO DAILY 08/28/18 Furosemide [Lasix] 20 mg PO DAILY@1700 08/28/18 Furosemide [Lasix] 40 mg PO DAILY 08/28/18 Loratadine [Claritin] 10 mg PO DAILY 08/28/18 Propranolol HCl 10 mg PO DAILY 08/28/18 Surgical History: Surgical History (Last Reviewed 08/29/18 @ 04:32 by Gen Butt MD) History of cholecystectomy Z90.49 History of dilation and curettage Z98.890 History of spinal surgery Z98.890 Hx of foot surgery Z98.890 Hx of ventral hernia repair Z98.890, Z87.19 Status post gastric surgery Z98.890 Surgical History: cholecystectomy, - - D&C, lumbar back surgery x2, foot surgery x2, abdominal stoma, ventral hernia repair. 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 Lives: Spouse/ Significant Other Smoking Status: Never smoker Alcohol: Occasional - *Family History Maternal Family History: Family History (Last Reviewed 08/29/18 @ 04:33 by Gen Butt MD) Mother CVA (cerebral vascular accident) Thyroid disorder Diabetes Hypertension History Items: Cancer, Diabetes, Hypertension, Stroke Paternal Family History: Family History (Last Reviewed 08/29/18 @ 04:33 by Gen Butt MD) Mother CVA (cerebral vascular accident) Thyroid disorder Diabetes Hypertension History Items: No pertinent history Sibling Family History: Family History (Last Reviewed 08/29/18 @ 04:33 by Gen Butt MD) Mother CVA (cerebral vascular accident) Thyroid disorder Diabetes Hypertension History Items: No pertinent history Review of Systems Constitutional: Reports: Chills, Fever. Denies: Weight Change HEENT: Denies: Head Aches, Sinus Congestion, Sinus Drainage Cardiovascular: Denies: Chest Pain, Palpitations Respiratory: Denies: Cough, Shortness of breath at rest, Sputum production Gastrointestinal: Denies: Abdominal Pain, Nausea, Vomiting Genitourinary: Denies: Dysuria Musculoskeletal: Denies: Joint Pain, Joint Tenderness Skin: Denies: Rash, Wounds Neurological: Denies: Numbness, Tingling, Focal weakness Psychiatric: Denies: Anxiety, Depression, Homicidal Ideations, Suicidal Ideations Hematologic/ Lymphatic: Denies: Easy Bruising, Easy Bleeding VTE Information - Inpt Only VTE Present on Admission: No VTE Mechan Device Prophylaxis: None VTE Pharm Prophylaxis ordered?: Yes Patient Problems: Active and Suspected Problems (Last Reviewed 08/29/18 @ 04:32 by Gen abraham MD) Sepsis due to cellulitis (Acute) - Physical Exam General: Alert, Oriented x3, Cooperative HEENT: Atraumatic, PERRLA, EOMI, Normocephalic Neck: Supple, No JVD, Negative Carotid Bruits Lungs: Clear to auscultation, Normal air movement Cardiovascular: Regular rate, No murmurs Abdomen: Bowel Sounds Present, Soft, Non Tender Extremities: Tenderness - Left leg Skin: - - Severe erythema of left leg. Slight erythema of right leg. Tender left leg. Blisters beneath heel of left foot. Musculoskeletal: No Muscle Wasting Neurological: Neuro grossly intact Psych/Mental Status: Normal Affect, Appropriate Vital Signs Temp Pulse Resp BP Pulse Ox 99.0 F 83 15 115/71 97 08/28/18 21:00 08/28/18 21:00 08/28/18 21:00 08/28/18 21:00 08/28/18 21:00 Oxygen Flow Rate (L/min) 2 Oxygen Delivery Method Nasal Cannula Weight: 111.584 kg Body Mass Index (BMI) 44.9 Finger Stick Blood Glucose 187 Laboratory Tests Past 24 Hrs 08/28/18 08/28/18 08/28/18 18:40 18:40 18:40 WBC 16.5 H RBC 3.78 L Hgb 10.9 L Hct 33.4 L MCV 88.4 MCH 28.8 MCHC 32.6 RDW 14.5 RDW Differential 47.0 H Plt Count 206 MPV 10.5 Immature Gran % (Auto) 0.400 Neut % (Auto) 79.8 H Lymph % (Auto) 9.8 L Rice % (Auto) 9.3 Eos % (Auto) 0.5 Baso % (Auto) 0.2 Absolute Neuts (auto) 13.1 H Absolute Lymphs (auto) 1.62 Total Counted Not Reportable Differential Comment SCANNED Diff Path Review September foll PT 14.0 INR 1.1 APTT 38.2 H Sodium 135 L Potassium 4.0 Chloride 103 Carbon Dioxide 24.0 Anion Gap 8 BUN 9 Creatinine 1.13 H Estim Creat Clear Calc 54.44 Est GFR (MDRD) Af Amer 70 Est GFR (MDRD) Non-Af 58 L BUN/Creatinine Ratio 8.0 L Glucose 195 H Lactic Acid Calcium 8.5 Total Bilirubin 0.60 AST 27 ALT 41 Alkaline Phosphatase 112 Total Protein 7.5 Albumin 3.0 L Globulin 4.5 H Albumin/Globulin Ratio 0.7 L Serum , Qual Urine Color Urine Clarity Urine pH Ur Specific [place] Urine Protein Urine Glucose (UA) Urine Ketones Urine Occult Blood Urine Nitrite Urine Bilirubin Urine Urobilinogen Ur Leukocyte Esterase Urine RBC Urine WBC Ur Squamous Epith Cells Urine Bacteria Urine Mucus 08/28/18 08/28/1819 18:40 18:40 19:05 WBC RBC Hgb Hct MCV MCH MCHC RDW RDW Differential Plt Count MPV Immature Gran % (Auto) Neut % (Auto) Lymph % (Auto) Rice % (Auto) Eos % (Auto) Baso % (Auto) Absolute Neuts (auto) Absolute Lymphs (auto) Total Counted Differential Comment Diff Path Review PT INR APTT Sodium Potassium Chloride Carbon Dioxide Anion Gap BUN Creatinine Estim Creat Clear Calc Est GFR (MDRD) Af Amer Est GFR (MDRD) Non-Af BUN/Creatinine Ratio Glucose Lactic Acid 1.2 Calcium Total Bilirubin AST ALT Alkaline Phosphatase Total Protein Albumin Globulin Albumin/Globulin Ratio Serum , Qual NEGATIVE Urine Color Yellow Urine Clarity Clear Urine pH 7.0 Ur Specific [place] 1.010 Urine Protein 30 H Urine Glucose (UA) 250 H Urine Ketones 15 H Urine Occult Blood Negative Urine Nitrite Negative Urine Bilirubin Negative Urine Urobilinogen 4 H Ur Leukocyte Esterase Negative Urine RBC 0 SEEN Urine WBC 0-5 SEEN Ur Squamous Epith Cells 0-5 SEEN Urine Bacteria 0 SEEN Urine Mucus 0 SEEN Assessment/Plan All Active Problems (Last Reviewed 08/29/18 @ 04:32 by Gen Butt MD) Sepsis due to cellulitis (Acute) Constipation (Acute) Nausea and vomiting (Acute) UTI (urinary tract infection) (Resolved) The patient is a 37 year old F diabetes mellitus, anxiety disorder; spinal bifida; history of recurrent blisters of the heel/feet; MRSA and who who presented with left leg redness and pain and with Sirs criteria; and also was found to be developing right leg redness while in the emergency department. Sepsis secondary to cellulitis SIRS criteria: A temperature of 101.7 at emergency department and 102 at home Tachycardia with heart rate 107 Tachypnea with respiratory rate of 26 White count of 16.5 with neutrophil predominant Lactic acid: 1.2 Blood culture ?2 is pending Antibiotics : Vancomycin was started in the emergency department. Vancomycin was continued. We will add cefazolin 2 g every 8 hours. IV hydration: Received IV hydration in the emergency department Tylenol as needed; oxycodone as needed and morphine as needed ordered. Zofran IV as needed and bowel protocol in the setting of narcotic administration. Hyperlipidemia Lipitor continued Anxiety disorder BuSpar continued Depression Cymbalta continued Diabetes mellitus on presentation her blood glucose was not within goal. Metformin and Liraglutide continued with correction scale insulin added. Neuropathy Lyrica continued DVT prophylaxis Subcutaneous Lovenox. Miscellaneous: Home Laxis continued. Code Visit Inpatient E&M: 08711 Init Hosp L3
[2018-08-28] MEDS: Atorvastatin Calcium 10 MG Tablet PO (23:12)
[2018-08-28] MEDS: Senna/Docusate Sodium 1 Tablet PO (23:13)
[2018-08-28] MEDS: busPIRone 15 MG TABLET PO (23:13)
[2018-08-28] MEDS: Cefazolin 2 GM in 0.9% Normal Saline 100 ML IV (23:14)
--- NOTE | 2018-08-29 00:59 | ED.VISSUMM ---
- ER Visit Summary Date of Service: 08/28/18 Chief Complaint: Cellulitis History of Present Illness: The patient is a 37 F reports having a water blister on the back of her heel that is been draining for the past week. Last night she noted redness to her left lower extremity below the knee. She was seen by her primary care physician today and started on doxycycline. This afternoon she developed fever and chills. The area of erythema has spread further than what it was in the office today. Past history significant for diabetes, spina bifida with surgery, neuropathy. Physical Examination: Blood pressure is 141/80, temperature 100.6, heart rate 103, respiratory rate 24, pulse ox 99% on room air. Patient sitting upright in bed no acute distress. Head neck examination normal. Heart is regular rate and rhythm. Lungs sounds are clear. Abdomen is soft nontender. Left lower extreme examination reveals an open blister on the posterior heel. She has cellulitis from the ankle to the knee. Test Results: EKG is sinus at 95 with no acute ischemia. CBC was a white count of 16.5 with 79% neutrophils. Hemoglobin is 10.9. Chemistry studies significant for glucose of 195. LFTs and coags normal. Urinalysis normal. Lactate is normal at 1.2. test is negative. Blood cultures were drawn and sent. Emergency Department Course and Treatment: Patient was given Tylenol for fever along with morphine and Zofran for pain. She is given a dose of IV vancomycin. She is admitted for further IV treatment. Treatment Plan: [] Disposition: Admit Impression: Left lower extremity cellulitis This note was generated with Next Jump dictation software. It may contain incorrect words, spelling, and punctuation that were not noted in review of the chart prior to signing ED Disposition - Plan for ED Patient: Disposition: Acute Care [facility]
--- NOTE | 2018-08-29 01:24 | PCM.RX.CS ---
Consult Pharmacy has been consulted to manage selected antiobiotic: Vancomycin Type of Consult: New start Suspected Infection: Skin/Soft tissue Labs: Sodium 135 mmol/L (136-145) L 08/28/18 18:40 Potassium 4.0 mmol/L (3.5-5.1) 08/28/18 18:40 Chloride 103 mmol/L (98-107) 08/28/18 18:40 Carbon Dioxide 24.0 mmol/L (21.0-32.0) 08/28/18 18:40 Anion Gap 8 (5-15) 08/28/18 18:40 BUN 9 mg/dL (7-18) 08/28/18 18:40 Creatinine 1.13 mg/dL (0.55-1.02) H 08/28/18 18:40 Est GFR (MDRD) Af Amer 70 mL/min (>60) 08/28/18 18:40 Est GFR (MDRD) Non-Af 58 mL/min (>60) L 08/28/18 18:40 BUN/Creatinine Ratio 8.0 RATIO (10-20) L 08/28/18 18:40 Glucose 195 mg/dL (74-106) H 08/28/18 18:40 Weight used for dosin.3 kg Estimated Creatinine Clearance: 80.6 Goal Trough: 15-20 mcg/mL Pharmacy Plan for Drug Dosing: Pharmacy Service will continue to monitor and adjust dosing as required. Medications Vancomycin HCl 2,000 mg/ (Sodium Chloride) 540 mls @ 250 mls/hr IV Q12H DERIAN Discontinued Medications Vancomycin HCl 1,750 mg/ (Sodium Chloride) 535 mls @ 250 mls/hr IV X1 ONE Stop: 08/28/18 21:08 Last Admin: 08/28/18 19:10 Dose: 250 mls/hr Follow-Up Labs: Trough Vancomycin Labs to be done on [date and time ordered]: 08/30 @ 0700
[2018-08-29 04:30] VITALS: BP 112/56; PULSE 84; RESP 16; TEMP 36.6; O2SAT 100
[2018-08-29] MEDS: Cefazolin 2 GM in 0.9% Normal Saline 100 ML IV ×3 (06:27→21:23)
[2018-08-29 06:29] LABS: Anion Gap 6 (5-15); BUN 10 mg/dL (7-18); BUN/Creat Ratio 9.2 RATIO (10-20); Calcium,Total 8.3 mg/dL (8.5-10.1); Chloride 104 mmol/L (98-107); Creatinine, Serum 1.09 mg/dL (0.55-1.02); EST Glomerular Filtration Rate 60 mL/min (>60); Est Glom Filt Rate - Afr Amer 73 mL/min (>60); Estimated Creatinine Clearance 56.43 ml/min; Glucose 207 mg/dL (74-106); Potassium 4.2 mmol/L (3.5-5.1); Sodium Level 137 mmol/L (136-145)
[2018-08-29] MEDS: oxyCODONE 5 MG Tablet PO ×2 (06:30→12:33)
[2018-08-29 06:31] LABS: Bedside Glucose 198 mg/dL (70-110)
[2018-08-29] MEDS: Insulin Lispro 100 UNIT/ML INSULN.PEN SQ ×4 (06:31→21:23)
[2018-08-29 07:09] LABS: Absolute Lymphocyte Count 2.02 X10^3/ul (0.83-4.51); Absolute Neutrophil Count 10.2 X10^3/uL (2.0-7.7); Basophil# 0.06 X10^3/uL; Basophil% 0.4 % (0-1); Differential Indicated SCAN CRITERIA MET; Eosinophils% 1.4 % (0-5); Hematocrit 33.9 % (37-47); Hemoglobin 10.8 g/dl (12.0-15.0); Lymphocyte # 2.02 X10^3/ul (4.0); Lymphocyte % 13.8 % (19-41); Mean Corp Hgb Conc 31.9 g/gl (32-36); Mean Corpuscular Hgb 28.8 pg (27.0-32.0); Mean Corpuscular Volume 90.4 fL (81-99); Mean Platelet Vol. 10.9 fl (6.2-12.0); Monocyte# 2.04 X10^3/uL; Monocyte% 13.9 % (0-10); Neutrophil # 10.22 X10^3/uL (2.7-7.7); Neutrophil % 69.7 % (47-70); POSITIVE COUNT NO; POSITIVE DIFFERENTIAL YES; POSITIVE MORPHOLOGY NO; Platelet Count 195 K/mm3 (150-450); RBC Distribution Width CV 14.9 % (11.6-14.6); RBC Distribution Width SD 49.1 fl (35.1-43.9); Red Blood Count 3.75 M/mm3 (4.2-5.4); White Blood Count 14.7 K/mm3 (4.4-11.0)
[2018-08-29 07:37] LABS: Vacuolated Cells 1+
[2018-08-29] MEDS: Senna/Docusate Sodium 1 Tablet PO ×2 (08:00→21:22)
[2018-08-29] MEDS: Propranolol 10 MG Tablet PO (08:00)
[2018-08-29] MEDS: Enoxaparin 40 MG/0.4 ML Syringe SC (08:00)
[2018-08-29] MEDS: Pregabalin 75 MG Capsule PO (08:00)
[2018-08-29] MEDS: Furosemide 40 MG Tablet PO (08:00)
[2018-08-29] MEDS: Loratadine 10 MG Tablet PO (08:01)
[2018-08-29] MEDS: DULoxetine Hcl 60 MG Capsule PO (08:01)
[2018-08-29] MEDS: busPIRone 15 MG TABLET PO ×2 (08:01→21:23)
[2018-08-29 08:09] VITALS: BP 122/79; PULSE 88; RESP 18; TEMP 37.7; O2SAT 100
--- NOTE | 2018-08-29 10:30 | CASEMGMT ---
RN CM Face to Face with patient for initial transition planning/care coordination assessment. RN CM introduced self and role at [facility]. Patient lying in bed, alert and oriented. Patient willing to participate in assessment and is able to answer all questions appropriately. Care providers, pharmacy, and demographics verified. Patient wishes to discharge home, denies need for home health at this time. Patient states she has no further needs or concerns at this time. CM to follow for discharge planning needs that may arise. PCP: Vazquez Specialists: Evelyn, urologist; Santi, urologist at [facility]; Patricia crown assembly machine operator; Yogi, neurologist Preferred Pharmacy: [facility] Prescription Benefit: yes Living Will/HPOA: none LNOK: Living Arrangements: Patient lives with in 2 story home with bed and bath on first floor. Patient independent at home. Transportation: [place] [facility] DME/HHC: Patient has cane, walker, wheelchair, and shower chair at home. Disposition Plan: Patient to discharge home with family support and follow-up plans in place. Kati SANDERS, RN, CM
--- NOTE | 2018-08-29 11:00 | PCM.PN.HOSP ---
Patient Problems: Active and Suspected Problems (Last Reviewed 08/29/18 @ 04:32 by Gen Butt MD) Sepsis due to cellulitis (Acute) Subjective: Doing well, no issues overnight. She is still complaining of right lower extremity pain Vitals/I&O's: Vital Signs Temp Pulse Resp BP Pulse Ox 99.8 F H 88 18 122/79 H 100 08/29/18 08:09 08/29/18 08:09 08/29/18 08:09 08/29/18 08:09 08/29/18 08:09 Oxygen Flow Rate (L/min) 2 Oxygen Delivery Method Room Air Weight: 243 lb 2.718 oz Body Mass Index (BMI) 44.4 Finger Stick Blood Glucose 187 Intake and Output for Last 24 Hours 08/27/18 08/28/18 08/29/18 23:59 23:59 23:59 Intake Total 1495 / 1495 Balance 1495 / 1495 General: Alert, Oriented x3, Cooperative, No apparent distress HEENT: Atraumatic, PERRLA, EOMI, Normocephalic Oral: Moist Mucosa Neck: Supple, No JVD, Trachea Midline Lungs: Clear to auscultation, Normal air movement, No rhonchi, No wheeze, No rales Cardiovascular: Regular rate, Regular Rhythm, Normal S1, Normal S2, No murmurs Abdomen: Soft, Non Tender, Non-Distended, No Hepato-splenomegaly Extremities: Capillary Refill Less than 3 Seconds, Edema, Tenderness Skin: Rash Present - Cellulitis on left lower extremity margins are marked Neurological: Neuro grossly intact, Sensory exam intact to light touch and pain Psych/Mental Status: Normal Affect, Appropriate Laboratory Results 08/28/18 18:40: WBC 16.5 H, RBC 3.78 L, Hgb 10.9 L, Hct 33.4 L, MCV 88.4, MCH 28.8, MCHC 32.6, RDW 14.5, RDW Differential 47.0 H, Plt Count 206, MPV 10.5, Immature Gran % (Auto) 0.400, Neut % (Auto) 79.8 H, Lymph % (Auto) 9.8 L, [place] % (Auto) 9.3, Eos % (Auto) 0.5, Baso % (Auto) 0.2, Absolute Neuts (auto) 13.1 H, Absolute Lymphs (auto) 1.62, Total Counted Not Reportable, Differential Comment SCANNED, Diff Path Review September [facility] 08/28/18 18:40: PT 14.0, INR 1.1, APTT 38.2 H 08/28/18 18:40: Sodium 135 L, Potassium 4.0, Chloride 103, Carbon Dioxide 24.0, Anion Gap 8, BUN 9, Creatinine 1.13 H, Estim Creat Clear Calc 54.44, Est GFR (MDRD) Af Amer 70, Est GFR (MDRD) Non-Af 58 L, BUN/Creatinine Ratio 8.0 L, Glucose 195 H, Calcium 8.5, Total Bilirubin 0.60, AST 27, ALT 41, Alkaline Phosphatase 112, Total Protein 7.5, Albumin 3.0 L, Globulin 4.5 H, Albumin/Globulin Ratio 0.7 L 08/28/18 18:40: Lactic Acid 1.2 08/28/18 18:40: Serum , Qual NEGATIVE 08/28/18 19:05: Urine Color Yellow, Urine Clarity Clear, Urine pH 7.0, Ur Specific [place] 1.010, Urine Protein 30 H, Urine Glucose (UA) 250 H, Urine Ketones 15 H, Urine Occult Blood Negative, Urine Nitrite Negative, Urine Bilirubin Negative, Urine Urobilinogen 4 H, Ur Leukocyte Esterase Negative, Urine RBC 0 SEEN, Urine WBC 0-5 SEEN, Ur Squamous Epith Cells 0-5 SEEN, Urine Bacteria 0 SEEN, Urine Mucus 0 SEEN 08/29/18 05:05: WBC 14.7 H, RBC 3.75 L, Hgb 10.8 L, Hct 33.9 L, MCV 90.4, MCH 28.8, MCHC 31.9 L, RDW 14.9 H, RDW Differential 49.1 H, Plt Count 195, MPV 10.9, Immature Gran % (Auto) 0.800, Neut % (Auto) 69.7, Lymph % (Auto) 13.8 L, [place] % (Auto) 13.9 H, Eos % (Auto) 1.4, Baso % (Auto) 0.4, Absolute Neuts (auto) 10.2 H, Absolute Lymphs (auto) 2.02, Total Counted Not Reportable, Differential Comment 1+, Diff Path Review September [facility] 08/29/18 05:05: Sodium 137, Potassium 4.2, Chloride 104, Carbon Dioxide 27.0, Anion Gap 6, BUN 10, Creatinine 1.09 H, Estim Creat Clear Calc 56.43, Est GFR (MDRD) Af Amer 73, Est GFR (MDRD) Non-Af 60, BUN/Creatinine Ratio 9.2 L, Glucose 207 H, Calcium 8.3 L 08/29/18 06:25: POC Glucose 198 H Current Medications Acetaminophen (Tylenol) 650 mg PO Q6H PRN PRN PRN Reason: Mild Pain (1-3)/Temp > 100.7 F Atorvastatin Calcium (Lipitor) 10 mg PO QHS [facility] Last Admin: 08/28/18 23:12 Dose: 10 mg Buspirone HCl (Buspar) 15 mg PO BID [facility] Last Admin: 08/29/18 08:01 Dose: 15 mg Duloxetine HCl (Cymbalta) 60 mg PO DAILY [facility] Last Admin: 08/29/18 08:01 Dose: 60 mg Enoxaparin Sodium (Lovenox) 40 mg SC DAILY@1000 [facility] Last Admin: 08/29/18 08:00 Dose: 40 mg Furosemide (Lasix) 20 mg PO DAILY@1700 [facility] Furosemide (Lasix) 40 mg PO DAILY [facility] Last Admin: 08/29/18 08:00 Dose: 40 mg Cefazolin Sodium 2 gm/ Sodium (Chloride) 110 mls @ 150 mls/hr IV Q8 [facility] Last Admin: 08/29/18 06:27 Dose: 150 mls/hr Insulin Human Lispro (Humalog Kwikpen (Bkc)) 0 unit SQ ACHS [facility]; Protocol Last Admin: 08/29/18 06:31 Dose: 2 u Loratadine (Claritin) 10 mg PO DAILY [facility] Last Admin: 08/29/18 08:01 Dose: 10 mg Magnesium Hydroxide (Milk Of Magnesia) 30 ml PO DAILY PRN PRN PRN Reason: Constipation [facility] Admin: 08/29/18 08:01 Dose: 1,000 mg Morphine Sulfate () 2 - 4 mg IV Q4H PRN PRN PRN Reason: MOD-SEVERE PAIN (4-10/10) Morphine Sulfate () 2 - 4 mg IV Q4H PRN PRN PRN Reason: MOD-SEVERE PAIN (4-10/10) Ondansetron HCl (Zofran) 4 mg IV Q8H PRN PRN PRN Reason: NAUSEA Oxycodone HCl (Oxyir) 5 - 10 mg PO Q4H PRN PRN PRN Reason: MOD-SEVERE PAIN () Last Admin: 08/29/18 06:30 Dose: 10 mg Polyethylene Glycol (Miralax) 17 gm PO DAILY PRN PRN PRN Reason: Constipation Pregabalin (Lyrica) 75 mg PO DAILY [facility] Last Admin: 08/29/18 08:00 Dose: 75 mg Propranolol HCl (Inderal) 10 mg PO DAILY [facility] Last Admin: 08/29/18 08:00 Dose: 10 mg Pseudoephedrine HCl (Sudafed) 30 mg PO Q6H PRN PRN PRN Reason: CONGESTION Senna/Docusate Sodium (Senokot-S, Joan-Colace) 1 tablet PO BID [facility] Last Admin: 08/29/18 08:00 Dose: 1 tablet Sodium Chloride () 5 - 15 ml IV UD PRN PRN Reason: SALINE FLUSH Medical Necessity - Tobacco Use Smoking Status: Never smoker Assessment/Plan All Active Problems (Last Reviewed 08/29/18 @ 04:32 by Gen Butt MD) Sepsis due to cellulitis (Acute) Constipation (Acute) Nausea and vomiting (Acute) UTI (urinary tract infection) (Resolved) 1. Sepsis secondary to left lower extremity cellulitis 4/bilateral lower extremity edema -This has improved, her leukocytosis is improving -Discontinue the vancomycin today and continue with only the Ancef -Blood cultures are pending -Can continue with Lasix 2. HLD/DM 2 with neuropathy -We will continue with her Lipitor -Will hold her metformin, Victoza and put her on long-acting insulin as well as continue her sliding scale insulin -Continue with Lyrica 3. Anxiety/depression -Stable -Continue with BuSpar and Cymbalta 4. Spina bifida -May have you urinary and bowel dysfunction -We will continue to support while here in the hospital DVT: Lovenox Code Visit Inpatient E&M: 91150 Subs Hosp L2
--- NOTE | 2018-08-29 11:08 | PN_ITS ---
Patient Problems: Active and Suspected Problems (Last Reviewed 08/29/18 @ 04:32 by Gen Butt MD) Sepsis due to cellulitis (Acute) Subjective: Doing well, no issues overnight. She is still complaining of right lower extremity pain Vitals/I&O's: Vital Signs Temp Pulse Resp BP Pulse Ox 99.8 F H 88 18 122/79 H 100 08/29/18 08:09 08/29/18 08:09 08/29/18 08:09 08/29/18 08:09 08/29/18 08:09 Oxygen Flow Rate (L/min) 2 Oxygen Delivery Method Room Air Weight: 243 lb 2.718 oz Body Mass Index (BMI) 44.4 Finger Stick Blood Glucose 187 Intake and Output for Last 24 Hours 08/27/18 08/28/18 08/29/18 23:59 23:59 23:59 Intake Total 1495 / 1495 Balance 1495 / 1495 General: Alert, Oriented x3, Cooperative, No apparent distress HEENT: Atraumatic, PERRLA, EOMI, Normocephalic Oral: Moist Mucosa Neck: Supple, No JVD, Trachea Midline Lungs: Clear to auscultation, Normal air movement, No rhonchi, No wheeze, No rales Cardiovascular: Regular rate, Regular Rhythm, Normal S1, Normal S2, No murmurs Abdomen: Soft, Non Tender, Non-Distended, No Hepato-splenomegaly Extremities: Capillary Refill Less than 3 Seconds, Edema, Tenderness Skin: Rash Present - Cellulitis on left lower extremity margins are marked Neurological: Neuro grossly intact, Sensory exam intact to light touch and pain Psych/Mental Status: Normal Affect, Appropriate Laboratory Results 08/28/18 18:40: WBC 16.5 H, RBC 3.78 L, Hgb 10.9 L, Hct 33.4 L, MCV 88.4, MCH 28.8, MCHC 32.6, RDW 14.5, RDW Differential 47.0 H, Plt Count 206, MPV 10.5, Immature Gran % (Auto) 0.400, Neut % (Auto) 79.8 H, Lymph % (Auto) 9.8 L, [place] % (Auto) 9.3, Eos % (Auto) 0.5, Baso % (Auto) 0.2, Absolute Neuts (auto) 13.1 H, Absolute Lymphs (auto) 1.62, Total Counted Not Reportable, Differential Comment SCANNED, Diff Path Review September [facility] 08/28/18 18:40: PT 14.0, INR 1.1, APTT 38.2 H 08/28/18 18:40: Sodium 135 L, Potassium 4.0, Chloride 103, Carbon Dioxide 24.0, Anion Gap 8, BUN 9, Creatinine 1.13 H, Estim Creat Clear Calc 54.44, Est GFR (MDRD) Af Amer 70, Est GFR (MDRD) Non-Af 58 L, BUN/Creatinine Ratio 8.0 L, Glucose 195 H, Calcium 8.5, Total Bilirubin 0.60, AST 27, ALT 41, Alkaline Phosphatase 112, Total Protein 7.5, Albumin 3.0 L, Globulin 4.5 H, Albumin/Globulin Ratio 0.7 L 08/28/18 18:40: Lactic Acid 1.2 08/28/18 18:40: Serum , Qual NEGATIVE 08/28/18 19:05: Urine Color Yellow, Urine Clarity Clear, Urine pH 7.0, Ur Specific [place] 1.010, Urine Protein 30 H, Urine Glucose (UA) 250 H, Urine Ketones 15 H, Urine Occult Blood Negative, Urine Nitrite Negative, Urine Bilirubin Negative, Urine Urobilinogen 4 H, Ur Leukocyte Esterase Negative, Urine RBC 0 SEEN, Urine WBC 0-5 SEEN, Ur Squamous Epith Cells 0-5 SEEN, Urine Bacteria 0 SEEN, Urine Mucus 0 SEEN 08/29/18 05:05: WBC 14.7 H, RBC 3.75 L, Hgb 10.8 L, Hct 33.9 L, MCV 90.4, MCH 28.8, MCHC 31.9 L, RDW 14.9 H, RDW Differential 49.1 H, Plt Count 195, MPV 10.9, Immature Gran % (Auto) 0.800, Neut % (Auto) 69.7, Lymph % (Auto) 13.8 L, [place] % (Auto) 13.9 H, Eos % (Auto) 1.4, Baso % (Auto) 0.4, Absolute Neuts (auto) 10.2 H , Absolute Lymphs (auto) 2.02, Total Counted Not Reportable, Differential Comment 1+, Diff Path Review September [facility] 08/29/18 05:05: Sodium 137, Potassium 4.2, Chloride 104, Carbon Dioxide 27.0, Anion Gap 6, BUN 10, Creatinine 1.09 H, Estim Creat Clear Calc 56.43, Est GFR (MDRD) Af Amer 73, Est GFR (MDRD) Non-Af 60, BUN/Creatinine Ratio 9.2 L, Glucose 207 H, Calcium 8.3 L 08/29/18 06:25: POC Glucose 198 H Current Medications Acetaminophen (Tylenol) 650 mg PO Q6H PRN PRN PRN Reason: Mild Pain (1-3)/Temp > 100.7 F Atorvastatin Calcium (Lipitor) 10 mg PO QHS [facility] Last Admin: 08/28/18 23:12 Dose: 10 mg Buspirone HCl (Buspar) 15 mg PO BID [facility] Last Admin: 08/29/18 08:01 Dose: 15 mg Duloxetine HCl (Cymbalta) 60 mg PO DAILY [facility] Last Admin: 08/29/18 08:01 Dose: 60 mg Enoxaparin Sodium (Lovenox) 40 mg SC DAILY@1000 [facility] Last Admin: 08/29/18 08:00 Dose: 40 mg Furosemide (Lasix) 20 mg PO DAILY@1700 [facility] Furosemide (Lasix) 40 mg PO DAILY [facility] Last Admin: 08/29/18 08:00 Dose: 40 mg Cefazolin Sodium 2 gm/ Sodium (Chloride) 110 mls @ 150 mls/hr IV Q8 [facility] Last Admin: 08/29/18 06:27 Dose: 150 mls/hr Insulin Human Lispro (Humalog Kwikpen (Bkc)) 0 unit SQ ACHS [facility]; Protocol Last Admin: 08/29/18 06:31 Dose: 2 u Loratadine (Claritin) 10 mg PO DAILY [facility] Last Admin: 08/29/18 08:01 Dose: 10 mg Magnesium Hydroxide (Milk Of Magnesia) 30 ml PO DAILY PRN PRN PRN Reason: Constipation [facility] Admin: 08/29/18 08:01 Dose: 1,000 mg Morphine Sulfate () 2 - 4 mg IV Q4H PRN PRN PRN Reason: MOD-SEVERE PAIN (4-10/10) Morphine Sulfate () 2 - 4 mg IV Q4H PRN PRN PRN Reason: MOD-SEVERE PAIN (4-10/10) Ondansetron HCl (Zofran) 4 mg IV Q8H PRN PRN PRN Reason: NAUSEA Oxycodone HCl (Oxyir) 5 - 10 mg PO Q4H PRN PRN PRN Reason: MOD-SEVERE PAIN () Last Admin: 08/29/18 06:30 Dose: 10 mg Polyethylene Glycol (Miralax) 17 gm PO DAILY PRN PRN PRN Reason: Constipation Pregabalin (Lyrica) 75 mg PO DAILY [facility] Last Admin: 08/29/18 08:00 Dose: 75 mg Propranolol HCl (Inderal) 10 mg PO DAILY [facility] Last Admin: 08/29/18 08:00 Dose: 10 mg Pseudoephedrine HCl (Sudafed) 30 mg PO Q6H PRN PRN PRN Reason: CONGESTION Senna/Docusate Sodium (Senokot-S, Joan-Colace) 1 tablet PO BID [facility] Last Admin: 08/29/18 08:00 Dose: 1 tablet Sodium Chloride () 5 - 15 ml IV UD PRN PRN Reason: SALINE FLUSH Medical Necessity - Tobacco Use Smoking Status: Never smoker Assessment/Plan All Active Problems (Last Reviewed 08/29/18 @ 04:32 by Gen Butt MD) Sepsis due to cellulitis (Acute) Constipation (Acute) Nausea and vomiting (Acute) UTI (urinary tract infection) (Resolved) 1. Sepsis secondary to left lower extremity cellulitis 4/bilateral lower extremity edema -This has improved, her leukocytosis is improving -Discontinue the vancomycin today and continue with only the Ancef -Blood cultures are pending -Can continue with Lasix 2. HLD/DM 2 with neuropathy -We will continue with her Lipitor -Will hold her metformin, Victoza and put her on long-acting insulin as well as continue her sliding scale insulin -Continue with Lyrica 3. Anxiety/depression -Stable -Continue with BuSpar and Cymbalta 4. Spina bifida -May have you urinary and bowel dysfunction -We will continue to support while here in the hospital DVT: Lovenox Code Visit Inpatient E&M: 21100 Subs Hosp L2
[2018-08-29 12:46] LABS: Bedside Glucose 215 mg/dL (70-110)
[2018-08-29 13:50] LABS: Pathologist Review Reviewed
[2018-08-29 13:51] LABS: Pathologist Review Reviewed
[2018-08-29 15:00] VITALS: BP 128/77; PULSE 98; RESP 18; TEMP 38.8; O2SAT 98
[2018-08-29] MEDS: Acetaminophen 325 MG Tablet 650 MG PO ×2 (15:24→21:23)
[2018-08-29] MEDS: Ondansetron 4 MG/2 ML Vial IV ×2 (15:24→23:09)
[2018-08-29] MEDS: Furosemide 20 MG Tablet PO (17:41)
[2018-08-29 17:46] VITALS: TEMP 37.2
[2018-08-29 17:50] LABS: Bedside Glucose 218 mg/dL (70-110)
[2018-08-29 20:20] VITALS: BP 103/59; PULSE 80; RESP 18; TEMP 37.1; O2SAT 97
[2018-08-29] MEDS: Atorvastatin Calcium 10 MG Tablet PO (21:22)
[2018-08-29 21:31] LABS: Bedside Glucose 238 mg/dL (70-110)
[2018-08-29] MEDS: 0.9% NaCl Peripheral Flush Adult/Peds IV (23:09)
[2018-08-30 05:00] VITALS: BP 116/67; PULSE 85; RESP 16; TEMP 37.2; O2SAT 96
[2018-08-30] MEDS: Cefazolin 2 GM in 0.9% Normal Saline 100 ML IV (05:05)
[2018-08-30] MEDS: 0.9% NaCl Peripheral Flush Adult/Peds IV ×2 (05:05→22:16)
[2018-08-30 06:19] LABS: Hematocrit 31.8 % (37-47); Hemoglobin 10.1 g/dl (12.0-15.0); Mean Corp Hgb Conc 31.8 g/gl (32-36); Mean Corpuscular Hgb 28.4 pg (27.0-32.0); Mean Corpuscular Volume 89.3 fL (81-99); Platelet Count 206 K/mm3 (150-450); RBC Distribution Width CV 14.7 % (11.6-14.6); Red Blood Count 3.56 M/mm3 (4.2-5.4); White Blood Count 16.6 K/mm3 (4.4-11.0)
[2018-08-30 06:28] LABS: Differential Indicated MANUAL DIFF; POSITIVE COUNT YES; POSITIVE DIFFERENTIAL YES; POSITIVE MORPHOLOGY YES
[2018-08-30 06:34] LABS: Vancomycin, Trough Level 7.7 ug/mL (5.0-15.0)
[2018-08-30] MEDS: oxyCODONE 5 MG Tablet PO ×2 (06:43→18:09)
[2018-08-30] MEDS: Insulin Lispro 100 UNIT/ML INSULN.PEN SQ ×4 (06:44→22:17)
[2018-08-30 06:49] LABS: Anion Gap 8 (5-15); BUN 7 mg/dL (7-18); BUN/Creat Ratio 6.5 RATIO (10-20); Calcium,Total 8.4 mg/dL (8.5-10.1); Chloride 106 mmol/L (98-107); Creatinine, Serum 1.08 mg/dL (0.55-1.02); EST Glomerular Filtration Rate 61 mL/min (>60); Est Glom Filt Rate - Afr Amer 74 mL/min (>60); Estimated Creatinine Clearance 56.96 ml/min; Glucose 160 mg/dL (74-106); Potassium 3.9 mmol/L (3.5-5.1); Sodium Level 139 mmol/L (136-145)
[2018-08-30 07:01] LABS: Bedside Glucose 178 mg/dL (70-110)
[2018-08-30 07:22] LABS: Basophil 1 % (0-1); Eosinophil 1 % (0-5); Lymphocyte 7 % (19-41); Metamyelocyte 1 % (0-1); Monocyte 10 % (0-10); Neutrophil-Band 13 % (0-5); Neutrophil-Segmented 67 % (47-70); Total Cells Counted 100 (MANUAL DIFF)
[2018-08-30 07:24] LABS: Absolute Lymphocyte Count 1.16 X10^3/ul (0.83-4.51); Absolute Neutrophil Count 13.4 X10^3/uL (2.0-7.7); Lymphocyte # 1.16 X10^3/ul (4.0); Neutrophil # 13.45 X10^3/uL (2.7-7.7)
[2018-08-30 07:25] LABS: Platelet Estimate ADEQUATE (ADEQ)
--- NOTE | 2018-08-30 09:14 | MRI_ITS ---
STUDY: MRI LEFT REARFOOT WITHOUT CONTRAST REASON FOR EXAM: Soft tissue blister over left heel, evaluate for osteomyelitis. TECHNIQUE: Standardized fat and water weighted pulse sequences were obtained in all 3 orthogonal planes. COMPARISON: Radiographs 08/30/2018 and MRI images 12/18/2013. FINDINGS: Although there is image degradation secondary to patient motion, there is still significant diagnostically useful information available from this examination. There is edema in the subcutis adipose space. There is no focal fluid collection to indicate soft tissue abscess. Normal posterior tibialis tendon. Normal flexor digitorum longus tendon. Normal flexor hallucis longus tendon. Normal peroneus longus and brevis tendons. Normal tibialis anterior tendon. Normal extensor hallucis longus tendon. Normal extensor digitorum longus tendons. Normal Achilles tendon and teno-osseous insertion. Normal plantar fascia. There is no bone edema of the calcaneus to indicate osteomyelitis. There is atrophy with partial fat replacement of the intrinsic muscles of the foot (T1 sagittal images 12-21). Normal distal tibiofibular syndesmotic ligamentous complex. Normal lateral ligamentous complex. Normal subtalar ligaments and sinus tarsi. Normal deltoid ligamentous complexes. Normal plantar calcaneonavicular (spring) ligament. Normal tibiotalar articulation. Normal talar dome. Normal subtalar articulations. Normal talonavicular articulation. Normal calcaneocuboid articulation. Normal navicular-cuneiform articulations. 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 MRI/Lower Ext/No Jt/w/o IMPRESSION: No bone edema of the tarsal bones of the hindfoot to indicate osteomyelitis. Edema in the subcutis adipose space without demonstrated soft tissue abscess. Atrophy of the intrinsic muscles of the foot. Electronically Signed: Farhan Rivera MD at 16:02 EDT Tel , Service support ,
--- NOTE | 2018-08-30 09:17 | PCM.PN.HOSP ---
Patient Problems: Active and Suspected Problems (Last Reviewed 08/29/18 @ 04:32 by Gen Butt MD) Sepsis due to cellulitis (Acute) Subjective: Doing well, no issues overnight. In discussion with the wound care nurse, she did have a large ulcer on her left heel with a large tract. Vitals/I&O's: Vital Signs Temp Pulse Resp BP Pulse Ox 98.9 F 85 16 116/67 96 08/30/18 05:00 08/30/18 05:00 08/30/18 05:00 08/30/18 05:00 08/30/18 05:00 Oxygen Flow Rate (L/min) 2 Oxygen Delivery Method Room Air Weight: 243 lb 2.718 oz Body Mass Index (BMI) 44.4 Finger Stick Blood Glucose 187 Intake and Output for Last 24 Hours 08/28/18 08/29/18 08/30/18 23:59 23:59 23:59 Intake Total 3476 / 3476 Balance 3476 / 3476 General: Alert, Oriented x3, Cooperative, No apparent distress HEENT: Atraumatic, PERRLA, EOMI, Normocephalic Oral: Moist Mucosa Neck: Supple, No JVD, Trachea Midline Lungs: Clear to auscultation, Normal air movement, No rhonchi, No wheeze, No rales Cardiovascular: Regular rate, Regular Rhythm, Normal S1, Normal S2, No murmurs Abdomen: Soft, Non Tender, Non-Distended, No Hepato-splenomegaly Extremities: Capillary Refill Less than 3 Seconds, Edema, Tenderness Skin: Rash Present - Cellulitis on left lower extremity margins are marked, heel blister has been cleaned and dressed by wound care Neurological: Neuro grossly intact, Sensory exam intact to light touch and pain Psych/Mental Status: Normal Affect, Appropriate Laboratory Results 08/28/18 18:40: Diff Path Review Reviewed 08/29/18 05:05: Diff Path Review Reviewed 08/29/18 12:38: POC Glucose 215 H 08/29/18 17:39: POC Glucose 218 H 08/29/18 21:20: POC Glucose 238 H 08/30/18 05:52: Vancomycin Trough 7.7 08/30/18 05:52: WBC 16.6 H, RBC 3.56 L, Hgb 10.1 L, Hct 31.8 L, MCV 89.3, MCH 28.4, MCHC 31.8 L, RDW 14.7 H, RDW Differential 48.0 H, Plt Count 206, MPV 10.0, Immature Gran % (Auto) [employer], Neut % (Auto) [employer], Lymph % (Auto) [employer], [place] % (Auto) [employer], Eos % (Auto) [employer], Baso % (Auto) [employer], Absolute Neuts (auto) 13.4 H, Absolute Lymphs (auto) 1.16, Total Counted 100, Neutrophils % (Manual) 67, Band Neutrophils % 13 H, Lymphocytes % (Manual) 7 L, Monocytes % (Manual) 10, Eosinophils % (Manual) 1, Basophils % (Manual) 1, Metamyelocytes % 1, Diff Path Review September, Platelet Estimate [facility]QU[facility] 08/30/18 05:52: Sodium 139, Potassium 3.9, Chloride 106, Carbon Dioxide 25.0, Anion Gap 8, BUN 7, Creatinine 1.08 H, Estim Creat Clear Calc 56.96, Est GFR (MDRD) Af Amer 74, Est GFR (MDRD) Non-Af 61, BUN/Creatinine Ratio 6.5 L, Glucose 160 H, Calcium 8.4 L 08/30/18 06:43: POC Glucose 178 H 08/30/18 07:45: S.aureus Protein A PCR Pending, MRSA (PCR) Pending Current Medications Acetaminophen (Tylenol) 650 mg PO Q6H PRN PRN PRN Reason: Mild Pain (1-3)/Temp > 100.7 F Last Admin: 08/29/18 21:23 Dose: 650 mg Atorvastatin Calcium (Lipitor) 10 mg PO QHS [facility] Last Admin: 08/29/18 21:22 Dose: 10 mg Buspirone HCl (Buspar) 15 mg PO BID [facility] Last Admin: 08/29/18 21:23 Dose: 15 mg Duloxetine HCl (Cymbalta) 60 mg PO DAILY [facility] Last Admin: 08/29/18 08:01 Dose: 60 mg Enoxaparin Sodium (Lovenox) 40 mg SC DAILY@1000 [facility] Last Admin: 08/29/18 08:00 Dose: 40 mg Furosemide (Lasix) 20 mg PO DAILY@1700 [facility] Last Admin: 08/29/18 17:41 Dose: 20 mg Furosemide (Lasix) 40 mg PO DAILY [facility] Last Admin: 08/29/18 08:00 Dose: 40 mg Cefazolin Sodium 2 gm/ Sodium (Chloride) 110 mls @ 150 mls/hr IV Q8 [facility] Last Admin: 08/30/18 05:05 Dose: 150 mls/hr Cefepime HCl 2 gm/ Sodium (Chloride) 100 mls @ 200 mls/hr IV Q12 [facility] Insulin Glargine (Lantus (Bkc)) 10 units SC QHS [facility] Last Admin: 08/29/18 21:23 Dose: 10 u Insulin Human Lispro (Humalog Kwikpen (Bkc)) 0 unit SQ ACHS [facility]; Protocol Last Admin: 08/30/18 06:44 Dose: 2 u Loratadine (Claritin) 10 mg PO DAILY [facility] Last Admin: 08/29/18 08:01 Dose: 10 mg Magnesium Hydroxide (Milk Of Magnesia) 30 ml PO DAILY PRN PRN PRN Reason: Constipation Morphine Sulfate () 2 - 4 mg IV Q4H PRN PRN PRN Reason: MOD-SEVERE PAIN (4-10/10) Morphine Sulfate () 2 - 4 mg IV Q4H PRN PRN PRN Reason: MOD-SEVERE PAIN (4-10/10) Ondansetron HCl (Zofran) 4 mg IV Q8H PRN PRN PRN Reason: NAUSEA Last Admin: 08/29/18 23:09 Dose: 4 mg Oxycodone HCl (Oxyir) 5 - 10 mg PO Q4H PRN PRN PRN Reason: MOD-SEVERE PAIN (4-10/10) Last Admin: 08/30/18 06:43 Dose: 10 mg Polyethylene Glycol (Miralax) 17 gm PO DAILY PRN PRN PRN Reason: Constipation Pregabalin (Lyrica) 75 mg PO DAILY [facility] Last Admin: 08/29/18 08:00 Dose: 75 mg Propranolol HCl (Inderal) 10 mg PO DAILY [facility] Last Admin: 08/29/18 08:00 Dose: 10 mg Pseudoephedrine HCl (Sudafed) 30 mg PO Q6H PRN PRN PRN Reason: CONGESTION Senna/Docusate Sodium (Senokot-S, Joan-Colace) 1 tablet PO BID [facility] Last Admin: 08/29/18 21:22 Dose: 1 tablet Sodium Chloride () 5 - 15 ml IV UD PRN PRN Reason: SALINE FLUSH Last Admin: 08/30/18 05:05 Dose: 10 ml Medical Necessity - Tobacco Use Smoking Status: Never smoker Assessment/Plan All Active Problems (Last Reviewed 08/29/18 @ 04:32 by Gen Butt MD) Sepsis due to cellulitis (Acute) Constipation (Acute) Nausea and vomiting (Acute) UTI (urinary tract infection) (Resolved) 1. Sepsis secondary to left lower extremity cellulitis 4/bilateral lower extremity edema -Her sepsis has resolved, however she did have worse leukocytosis today -She is currently on Ancef we will add cefepime given the fact that she is diabetic and possibly has osteo, -Blood cultures are pending -We will obtain an MRI today and consult podiatry -Can continue with Lasix 2. HLD/DM 2 with neuropathy -We will continue with her Lipitor -Will hold her metformin, Victoza and put her on long-acting insulin as well as continue her sliding scale insulin -Continue with Lyrica 3. Anxiety/depression -Stable -Continue with BuSpar and Cymbalta 4. Spina bifida -May have you urinary and bowel dysfunction -We will continue to support while here in the hospital DVT: Lovenox Code Visit Inpatient E&M: 13427 Subs Hosp L2
--- NOTE | 2018-08-30 09:22 | PN_ITS ---
Patient Problems: Active and Suspected Problems (Last Reviewed 08/29/18 @ 04:32 by Gen Butt MD) Sepsis due to cellulitis (Acute) Subjective: Doing well, no issues overnight. In discussion with the wound care nurse, she did have a large ulcer on her left heel with a large tract. Vitals/I&O's: Vital Signs Temp Pulse Resp BP Pulse Ox 98.9 F 85 16 116/67 96 08/30/18 05:00 08/30/18 05:00 08/30/18 05:00 08/30/18 05:00 08/30/18 05:00 Oxygen Flow Rate (L/min) 2 Oxygen Delivery Method Room Air Weight: 243 lb 2.718 oz Body Mass Index (BMI) 44.4 Finger Stick Blood Glucose 187 Intake and Output for Last 24 Hours 08/28/18 08/29/18 08/30/18 23:59 23:59 23:59 Intake Total 3476 / 3476 Balance 3476 / 3476 General: Alert, Oriented x3, Cooperative, No apparent distress HEENT: Atraumatic, PERRLA, EOMI, Normocephalic Oral: Moist Mucosa Neck: Supple, No JVD, Trachea Midline Lungs: Clear to auscultation, Normal air movement, No rhonchi, No wheeze, No rales Cardiovascular: Regular rate, Regular Rhythm, Normal S1, Normal S2, No murmurs Abdomen: Soft, Non Tender, Non-Distended, No Hepato-splenomegaly Extremities: Capillary Refill Less than 3 Seconds, Edema, Tenderness Skin: Rash Present - Cellulitis on left lower extremity margins are marked, heel blister has been cleaned and dressed by wound care Neurological: Neuro grossly intact, Sensory exam intact to light touch and pain Psych/Mental Status: Normal Affect, Appropriate Laboratory Results 08/28/18 18:40: Diff Path Review Reviewed 08/29/18 05:05: Diff Path Review Reviewed 08/29/18 12:38: POC Glucose 215 H 08/29/18 17:39: POC Glucose 218 H 08/29/18 21:20: POC Glucose 238 H 08/30/18 05:52: Vancomycin Trough 7.7 08/30/18 05:52: WBC 16.6 H, RBC 3.56 L, Hgb 10.1 L, Hct 31.8 L, MCV 89.3, MCH 28.4, MCHC 31.8 L, RDW 14.7 H, RDW Differential 48.0 H, Plt Count 206, MPV 10.0, Immature Gran % (Auto) [employer], Neut % (Auto) [employer], Lymph % (Auto) [employer]ER, [place] % (Auto) [employer]ER, Eos % (Auto) [employer], Baso % (Auto) [employer], Absolute Neuts (auto) 13.4 H, Absolute Lymphs (auto) 1.16, Total Counted 100, Neutrophils % (Manual) 67, Band Neutrophils % 13 H, Lymphocytes % (Manual) 7 L, Monocytes % (Manual) 10, Eosinophils % (Manual) 1, Basophils % (Manual) 1, Metamyelocytes % 1, Diff Path Review September, Platelet Estimate ADEQUATE 08/30/18 05:52: Sodium 139, Potassium 3.9, Chloride 106, Carbon Dioxide 25.0, Anion Gap 8, BUN 7, Creatinine 1.08 H, Estim Creat Clear Calc 56.96, Est GFR (MDRD) Af Amer 74, Est GFR (MDRD) Non-Af 61, BUN/Creatinine Ratio 6.5 L, Glucose 160 H, Calcium 8.4 L 08/30/18 06:43: POC Glucose 178 H 08/30/18 07:45: S.aureus Protein A PCR Pending, MRSA (PCR) Pending Current Medications Acetaminophen (Tylenol) 650 mg PO Q6H PRN PRN PRN Reason: Mild Pain (1-3)/Temp > 100.7 F Last Admin: 08/29/18 21:23 Dose: 650 mg Atorvastatin Calcium (Lipitor) 10 mg PO QHS [facility] Last Admin: 08/29/18 21:22 Dose: 10 mg Buspirone HCl (Buspar) 15 mg PO BID [facility] Last Admin: 08/29/18 21:23 Dose: 15 mg Duloxetine HCl (Cymbalta) 60 mg PO DAILY [facility] Last Admin: 08/29/18 08:01 Dose: 60 mg Enoxaparin Sodium (Lovenox) 40 mg SC DAILY@1000 [facility] Last Admin: 08/29/18 08:00 Dose: 40 mg Furosemide (Lasix) 20 mg PO DAILY@1700 [facility] Last Admin: 08/29/18 17:41 Dose: 20 mg Furosemide (Lasix) 40 mg PO DAILY [facility] Last Admin: 08/29/18 08:00 Dose: 40 mg Cefazolin Sodium 2 gm/ Sodium (Chloride) 110 mls @ 150 mls/hr IV Q8 [facility] Last Admin: 08/30/18 05:05 Dose: 150 mls/hr Cefepime HCl 2 gm/ Sodium (Chloride) 100 mls @ 200 mls/hr IV Q12 [facility] Insulin Glargine (Lantus (Bkc)) 10 units SC QHS [facility] Last Admin: 08/29/18 21:23 Dose: 10 u Insulin Human Lispro (Humalog Kwikpen (Bkc)) 0 unit SQ ACHS [facility]; Protocol Last Admin: 08/30/18 06:44 Dose: 2 u Loratadine (Claritin) 10 mg PO DAILY [facility] Last Admin: 08/29/18 08:01 Dose: 10 mg Magnesium Hydroxide (Milk Of Magnesia) 30 ml PO DAILY PRN PRN PRN Reason: Constipation Morphine Sulfate () 2 - 4 mg IV Q4H PRN PRN PRN Reason: MOD-SEVERE PAIN (4-10/10) Morphine Sulfate () 2 - 4 mg IV Q4H PRN PRN PRN Reason: MOD-SEVERE PAIN (4-10/10) Ondansetron HCl (Zofran) 4 mg IV Q8H PRN PRN PRN Reason: NAUSEA Last Admin: 08/29/18 23:09 Dose: 4 mg Oxycodone HCl (Oxyir) 5 - 10 mg PO Q4H PRN PRN PRN Reason: MOD-SEVERE PAIN (4-10/10) Last Admin: 08/30/18 06:43 Dose: 10 mg Polyethylene Glycol (Miralax) 17 gm PO DAILY PRN PRN PRN Reason: Constipation Pregabalin (Lyrica) 75 mg PO DAILY [facility] Last Admin: 08/29/18 08:00 Dose: 75 mg Propranolol HCl (Inderal) 10 mg PO DAILY [facility] Last Admin: 08/29/18 08:00 Dose: 10 mg Pseudoephedrine HCl (Sudafed) 30 mg PO Q6H PRN PRN PRN Reason: CONGESTION Senna/Docusate Sodium (Senokot-S, Joan-Colace) 1 tablet PO BID [facility] Last Admin: 08/29/18 21:22 Dose: 1 tablet Sodium Chloride () 5 - 15 ml IV UD PRN PRN Reason: SALINE FLUSH Last Admin: 08/30/18 05:05 Dose: 10 ml Medical Necessity - Tobacco Use Smoking Status: Never smoker Assessment/Plan All Active Problems (Last Reviewed 08/29/18 @ 04:32 by Gen Butt MD) Sepsis due to cellulitis (Acute) Constipation (Acute) Nausea and vomiting (Acute) UTI (urinary tract infection) (Resolved) 1. Sepsis secondary to left lower extremity cellulitis 4/bilateral lower extremity edema -Her sepsis has resolved, however she did have worse leukocytosis today -She is currently on Ancef we will add cefepime given the fact that she is diabetic and possibly has osteo, -Blood cultures are pending -We will obtain an MRI today and consult podiatry -Can continue with Lasix 2. HLD/DM 2 with neuropathy -We will continue with her Lipitor -Will hold her metformin, Victoza and put her on long-acting insulin as well as continue her sliding scale insulin -Continue with Lyrica 3. Anxiety/depression -Stable -Continue with BuSpar and Cymbalta 4. Spina bifida -May have you urinary and bowel dysfunction -We will continue to support while here in the hospital DVT: Lovenox Code Visit Inpatient E&M: 01038 Subs Hosp L2
[2018-08-30 09:57] VITALS: BP 113/63; PULSE 76; RESP 16; TEMP 37.1; O2SAT 95
--- NOTE | 2018-08-30 09:59 | NURSING ---
wound photo: left heel
[2018-08-30] MEDS: busPIRone 15 MG TABLET PO ×2 (10:19→22:16)
[2018-08-30] MEDS: Loratadine 10 MG Tablet PO (10:20)
[2018-08-30] MEDS: DULoxetine Hcl 60 MG Capsule PO (10:20)
[2018-08-30] MEDS: Pregabalin 75 MG Capsule PO (10:21)
[2018-08-30] MEDS: Senna/Docusate Sodium 1 Tablet PO ×2 (10:21→22:16)
[2018-08-30] MEDS: Propranolol 10 MG Tablet PO (10:21)
[2018-08-30] MEDS: Furosemide 40 MG Tablet PO (10:21)
--- NOTE | 2018-08-30 10:21 | RAD_ITS ---
STUDY: X-RAY - LEFT FOOT CLINICAL: Female, 37 years old. Mr. TECHNIQUE: 3 view(s) of the foot. COMPARISON: Comparison is made with prior study dated April 23, 2018. FINDINGS: There is an enthesophyte involving the posterior superior calcaneus at the site of insertion of the Achilles tendon. Normal visualized subtalar, talonavicular, calcaneocuboid, tarsal and tarsometatarsal articulations. 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 Normal metatarsophalangeal joint of the great toe. Normal tibial and fibular sesamoid bones. Normal interphalangeal joint of the great toe. Normal phalanges of the great toe. Normal second through fifth metatarsophalangeal joints. Normal interphalangeal joints and phalanges of the lesser toes. Diffuse soft tissue swelling. RAD/Foot min 3 Views IMPRESSION: Diffuse soft tissue swelling. 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 Electronically Signed: Stephan Sood, at 14:23 EDT , Service support ,
[2018-08-30] MEDS: Enoxaparin 40 MG/0.4 ML Syringe SC (10:23)
[2018-08-30 11:27] LABS: Pathologist Review Reviewed
[2018-08-30 11:30] LABS: Bedside Glucose 226 mg/dL (70-110)
--- NOTE | 2018-08-30 13:21 | PCM.CONS.GEN ---
Reason for Consult Date of Consultation: 08/30/18 Reason for Consultation: diabetic foot ulceration with cellulitis, left foot History of Present Illness: The patient is a 37 year old F with diabetic neuropathy, spina bifada who is currently admitted to [facility] with cellulitis of left foot. according to patient, she has been experiencing swelling in b/l legs for the past few months. She has been [facility]gins at [facility]. According to patient, over the past week, she has developed blister to her left heel that became red. she was placed on doxycycline but over the past few days, she has been noticing increased redness and fever and chills. she presented to hospital and was subsequently admitted. she does not recall what caused her blister/ulceration of left heel. she states she does have diabetic shoes/boots. she denies any increased activity. she denies any barefoot walking. she denies any injury. Of note, I have not seen this patient since April 2018. she states she has not had any problems since I have last seen her. Past Medical History Past Medical History (Chronic Problems): Chronic Problems (Last Reviewed 08/29/18 @ 04:32 by Gen Butt MD) Hydronephrosis (Chronic) Neurogenic bowel (Chronic) Neurogenic bladder (Chronic) Chronic back pain (Chronic) History of migraine (Chronic) Depression (Chronic) Spina bifida aperta of lumbar spine (Chronic) s/p surgery x 2 weakness and numbness in legs neurogenic bladder and frequent UTIs Non-compliance (Chronic) Morbid obesity with BMI of 40.0-44.9, adult (Chronic) Diabetes mellitus, type II (Chronic) Hydronephrosis of right kidney (Chronic) Consult dictated, For now Treat UTI and make sure pt does self cath. Will follow, no need yet for cysto retros etc. But this may change in future 13 Sept Re-admitted consult dictated Medical History: Medical History (Last Reviewed 08/29/18 @ 04:32 by Gen Butt MD) Neurogenic bowel (Chronic) K59.2 Neurogenic bladder (Chronic) N31.9 Chronic back pain (Chronic) M54.9, G89.29 History of migraine (Chronic) Z86.69 Depression (Chronic) F32.9 Spina bifida aperta of lumbar spine (Chronic) Q05.7 s/p surgery x 2 weakness and numbness in legs neurogenic bladder and frequent UTIs Non-compliance (Chronic) Z91.19 Morbid obesity with BMI of 40.0-44.9, adult (Chronic) E66.01, Z68.41 Diabetes mellitus, type II (Chronic) E11.9 Nausea and vomiting (Acute) R11.2 Hydronephrosis of right kidney (Chronic) N13.30 Consult dictated, For now Treat UTI and make sure pt does self cath. Will follow, no need yet for cysto retros etc. But this may change in future 13 Sept Re-admitted consult dictated UTI (urinary tract infection) (Resolved) N39.0 Allergies mushroom Allergy (Verified 08/28/18 17:46) Anaphylaxis peanut Allergy (Verified 08/28/18 17:46) Anaphylaxis Gadolinium-MRI Contrast Medium Adverse Reaction (Verified 08/28/18 17:46) Vomiting Home Medications: Ambulatory Orders Medication Instructions Recorded Metformin(XR) [Glucophage Xr] 1,000 mg PO BID 06/19/16 Atorvastatin Calcium [Lipitor] 10 mg PO QHS 11/07/17 Pseudoephedrine HCl [Sudogest] 30 mg PO Q6H PRN PRN 01/21/18 Pregabalin [Lyrica] 75 mg PO DAILY 02/25/18 Buspirone HCl 15 mg PO BID 18 Polyethylene Glycol 3350 [Miralax] 17 gm PO DAILY PRN 18 Liraglutide [Victoza] 1.2 mg SQ DAILY 07/03/18 Duloxetine HCl 60 mg PO DAILY 08/28/18 Furosemide [Lasix] 20 mg PO DAILY@1700 08/28/18 Furosemide [Lasix] 40 mg PO DAILY 08/28/18 Loratadine [Claritin] 10 mg PO DAILY 08/28/18 Propranolol HCl 10 mg PO DAILY 08/28/18 Surgical History: Surgical History (Last Reviewed 08/29/18 @ 04:32 by Gen Butt MD) History of cholecystectomy Z90.49 History of dilation and curettage Z98.890 History of spinal surgery Z98.890 Hx of foot surgery Z98.890 Hx of ventral hernia repair Z98.890, Z87.19 Status post gastric surgery Z98.890 Surgical History: cholecystectomy, - - D&C, lumbar back surgery x2, foot surgery x2, abdominal stoma, ventral hernia repair. 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 Lives: Spouse/ Significant Other Smoking Status: Never smoker Alcohol: Occasional - *Family History Maternal Family History: Family History (Last Reviewed 08/29/18 @ 04:33 by Gen Butt MD) Mother CVA (cerebral vascular accident) Thyroid disorder Diabetes Hypertension History Items: Cancer, Diabetes, Hypertension, Stroke Paternal Family History: Family History (Last Reviewed 08/29/18 @ 04:33 by Gen Butt MD) Mother CVA (cerebral vascular accident) Thyroid disorder Diabetes Hypertension History Items: No pertinent history Sibling Family History: Family History (Last Reviewed 08/29/18 @ 04:33 by Gen Butt MD) Mother CVA (cerebral vascular accident) Thyroid disorder Diabetes Hypertension History Items: No pertinent history Patient Problems: Active and Suspected Problems (Last Reviewed 08/29/18 @ 04:32 by Gen Butt MD) Sepsis due to cellulitis (Acute) Objective: Patient is alert and orientated x 3. patient does not appear in any distress. Vascular: DP and Pt pulses are faint due to swelling. cft is less than 5 seconds. skin temperature is warm to warm. hair growth is present b/l. Neuro: protective sensation is absent to b/l lower extremity. m/s: there is diffuse swelling of b/l lower extremity. no calf pain present. there is no evidence of charcot. derm: there is full thickness ulceration of left plantar lateral heel with periwound hyperkeratosis. there is firmly adherent eschar at base of wound. there is no purulence or evidence of fluctuance. there is no bone exposed. there is redness of left lower extremity but does appear to be improving. there is noninfected callus of right 5th metatarsal. - Physical Exam Vital Signs Temp Pulse Resp BP Pulse Ox 98.8 F 76 16 113/63 95 08/30/18 09:57 08/30/18 09:57 08/30/18 09:57 08/30/18 09:57 08/30/18 09:57 Oxygen Flow Rate (L/min) 2 Oxygen Delivery Method Room Air Weight: 110.3 kg Body Mass Index (BMI) 44.4 Finger Stick Blood Glucose 187 Intake and Output for Last 24 Hours 08/28/18 08/29/1819 23:59 23:59 23:59 Intake Total 3476 / 3476 Balance 3476 / 3476 Laboratory Tests Past 24 Hrs 08/28/18 08/29/18 08/30/18 18:40 05:05 05:52 WBC RBC Hgb Hct MCV MCH MCHC RDW RDW Differential Plt Count MPV Immature Gran % (Auto) Neut % (Auto) Lymph % (Auto) [place] % (Auto) Eos % (Auto) Baso % (Auto) Absolute Neuts (auto) Absolute Lymphs (auto) Total Counted Neutrophils % (Manual) Band Neutrophils % Lymphocytes % (Manual) Monocytes % (Manual) Eosinophils % (Manual) Basophils % (Manual) Metamyelocytes % Diff Path Review Reviewed Reviewed Platelet Estimate Sodium Potassium Chloride Carbon Dioxide Anion Gap BUN Creatinine Estim Creat Clear Calc Est GFR (MDRD) Af Amer Est GFR (MDRD) Non-Af BUN/Creatinine Ratio Glucose Calcium Vancomycin Trough 7.7 S.aureus Protein A PCR MRSA (PCR) 08/30/18 08/30/18 08/30/18 05:52 05:52 07:45 WBC 16.6 H RBC 3.56 L Hgb 10.1 L Hct 31.8 L MCV 89.3 MCH 28.4 MCHC 31.8 L RDW 14.7 H RDW Differential 48.0 H Plt Count 206 MPV 10.0 Immature Gran % (Auto) [employer] Neut % (Auto) [employer] Lymph % (Auto) [employer] [place] % (Auto) [employer] Eos % (Auto) [employer] Baso % (Auto) [employer] Absolute Neuts (auto) 13.4 H Absolute Lymphs (auto) 1.16 Total Counted 100 Neutrophils % (Manual) 67 Band Neutrophils % 13 H Lymphocytes % (Manual) 7 L Monocytes % (Manual) 10 Eosinophils % (Manual) 1 Basophils % (Manual) 1 Metamyelocytes % 1 Diff Path Review Reviewed Platelet Estimate ADEQUATE Sodium 139 Potassium 3.9 Chloride 106 Carbon Dioxide 25.0 Anion Gap 8 BUN 7 Creatinine 1.08 H Estim Creat Clear Calc 56.96 Est GFR (MDRD) Af Amer 74 Est GFR (MDRD) Non-Af 61 BUN/Creatinine Ratio 6.5 L Glucose 160 H Calcium 8.4 L Vancomycin Trough S.aureus Protein A PCR Pending MRSA (PCR) Pending POC Glucose 08/30/18 08/30/18 08/29/18 11:20 06:43 21:20 POC Glucose 226 H 178 H 238 H 08/29/18 17:39 POC Glucose 218 H Assessment/Plan All Active Problems (Last Reviewed 08/29/18 @ 04:32 by Gen Butt MD) Sepsis due to cellulitis (Acute) Constipation (Acute) Nausea and vomiting (Acute) UTI (urinary tract infection) (Resolved) Patient was examined and informed of current findings. Discussed ulceration of left heel. the ulceration is full thickness and is in very difficult area, this being the heel. It is very critical to offload this ulceration while in bed otherwise, she will be at high risk of nonhealing. Patient seen prior to going for mri. I agree with mri to assure no underlying osteomyelitis. if bone infection present, she has several options. one option would be to try and treat with antibiotics and local wound care vs amputation. will await mri results. Today, sharp debridement of periwound and eschar was performed. debridement was performed thru subcutaneous tissue with scissors and forceps. there is firm adherent eschar. this could benefit from santyl collagenase vs surgical debridement. await mri results and may proceed with surgical debridement thereafter. recommend offloading while in bed. right foot has noninfected callus that was debrided with 15 blade. offload right heel in bed. patient in need for new diabetic shoes. she needs to make f/u after hospitalization and become compliant with follow-up. await mri.
--- NOTE | 2018-08-30 13:27 | CON.PCM_ITS ---
Reason for Consult Date of Consultation: 08/30/18 Reason for Consultation: diabetic foot ulceration with cellulitis, left foot History of Present Illness: The patient is a 37 year old F with diabetic neuropathy, spina bifada who is currently admitted to [facility] with cellulitis of left foot. according to patient, she has been experiencing swelling in b/l legs for the past few months. She has been Net[facility] Higgins at [facility]. According to patient, over the past week, she has developed blister to her left heel that became red. she was placed on doxycycline but over the past few days, she has been noticing increased redness and fever and chills. she presented to hospital and was subsequently admitted. she does not recall what caused her blister/ulceration of left heel. she states she does have diabetic shoes/boots. she denies any increased activity. she denies any barefoot walking. she denies any injury. Of note, I have not seen this patient since April 2018. she states she has not had any problems since I have last seen her. Past Medical History Past Medical History (Chronic Problems): Chronic Problems (Last Reviewed 08/29/18 @ 04:32 by Gen Butt MD) Hydronephrosis (Chronic) Neurogenic bowel (Chronic) Neurogenic bladder (Chronic) Chronic back pain (Chronic) History of migraine (Chronic) Depression (Chronic) Spina bifida aperta of lumbar spine (Chronic) s/p surgery x 2 weakness and numbness in legs neurogenic bladder and frequent UTIs Non-compliance (Chronic) Morbid obesity with BMI of 40.0-44.9, adult (Chronic) Diabetes mellitus, type II (Chronic) Hydronephrosis of right kidney (Chronic) Consult dictated, For now Treat UTI and make sure pt does self cath. Will follow, no need yet for cysto retros etc. But this may change in future 13 Sept Re-admitted consult dictated Medical History: Medical History (Last Reviewed 08/29/18 @ 04:32 by Gen Butt MD) Neurogenic bowel (Chronic) K59.2 Neurogenic bladder (Chronic) N31.9 Chronic back pain (Chronic) M54.9, G89.29 History of migraine (Chronic) Z86.69 Depression (Chronic) F32.9 Spina bifida aperta of lumbar spine (Chronic) Q05.7 s/p surgery x 2 weakness and numbness in legs neurogenic bladder and frequent UTIs Non-compliance (Chronic) Z91.19 Morbid obesity with BMI of 40.0-44.9, adult (Chronic) E66.01, Z68.41 Diabetes mellitus, type II (Chronic) E11.9 Nausea and vomiting (Acute) R11.2 Hydronephrosis of right kidney (Chronic) N13.30 Consult dictated, For now Treat UTI and make sure pt does self cath. Will follow, no need yet for cysto retros etc. But this may change in future 13 Sept Re-admitted consult dictated UTI (urinary tract infection) (Resolved) N39.0 Allergies mushroom Allergy (Verified 08/28/18 17:46) Anaphylaxis peanut Allergy (Verified 08/28/18 17:46) Anaphylaxis Gadolinium-MRI Contrast Medium Adverse Reaction (Verified 08/28/18 17:46) Vomiting Home Medications: Ambulatory Orders Medication Instructions Recorded Metformin(XR) [Glucophage Xr] 1,000 mg PO BID 06/19/16 Atorvastatin Calcium [Lipitor] 10 mg PO QHS 11/07/17 Pseudoephedrine HCl [Sudogest] 30 mg PO Q6H PRN PRN 01/21/18 Pregabalin [Lyrica] 75 mg PO DAILY 02/25/18 Buspirone HCl 15 mg PO BID 18 Polyethylene Glycol 3350 [Miralax] 17 gm PO DAILY PRN 18 Liraglutide [Victoza] 1.2 mg SQ DAILY 07/03/18 Duloxetine HCl 60 mg PO DAILY 08/28/18 Furosemide [Lasix] 20 mg PO DAILY@1700 08/28/18 Furosemide [Lasix] 40 mg PO DAILY 08/28/18 Loratadine [Claritin] 10 mg PO DAILY 08/28/18 Propranolol HCl 10 mg PO DAILY 08/28/18 Surgical History: Surgical History (Last Reviewed 08/29/18 @ 04:32 by Gen Butt MD) History of cholecystectomy Z90.49 History of dilation and curettage Z98.890 History of spinal surgery Z98.890 Hx of foot surgery Z98.890 Hx of ventral hernia repair Z98.890, Z87.19 Status post gastric surgery Z98.890 Surgical History: cholecystectomy, - - D&C, lumbar back surgery x2, foot surgery x2, abdominal stoma, ventral hernia repair. 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 Lives: Spouse/ Significant Other Smoking Status: Never smoker Alcohol: Occasional - *Family History Maternal Family History: Family History (Last Reviewed 08/29/18 @ 04:33 by Gen Butt MD) Mother CVA (cerebral vascular accident) Thyroid disorder Diabetes Hypertension History Items: Cancer, Diabetes, Hypertension, Stroke Paternal Family History: Family History (Last Reviewed 08/29/18 @ 04:33 by Gen Butt MD) Mother CVA (cerebral vascular accident) Thyroid disorder Diabetes Hypertension History Items: No pertinent history Sibling Family History: Family History (Last Reviewed 08/29/18 @ 04:33 by Gen Butt MD) Mother CVA (cerebral vascular accident) Thyroid disorder Diabetes Hypertension History Items: No pertinent history Patient Problems: Active and Suspected Problems (Last Reviewed 08/29/18 @ 04:32 by Gen Butt MD) Sepsis due to cellulitis (Acute) Objective: Patient is alert and orientated x 3. patient does not appear in any distress. Vascular: DP and Pt pulses are faint due to swelling. cft is less than 5 seconds. skin temperature is warm to warm. hair growth is present b/l. Neuro: protective sensation is absent to b/l lower extremity. m/s: there is diffuse swelling of b/l lower extremity. no calf pain present. there is no evidence of charcot. derm: there is full thickness ulceration of left plantar lateral heel with periwound hyperkeratosis. there is firmly adherent eschar at base of wound. there is no purulence or evidence of fluctuance. there is no bone exposed. there is redness of left lower extremity but does appear to be improving. there is noninfected callus of right 5th metatarsal. - Physical Exam Vital Signs Temp Pulse Resp BP Pulse Ox 98.8 F 76 16 113/63 95 08/30/18 09:57 08/30/18 09:57 08/30/18 09:57 08/30/18 09:57 08/30/18 09:57 Oxygen Flow Rate (L/min) 2 Oxygen Delivery Method Room Air Weight: 110.3 kg Body Mass Index (BMI) 44.4 Finger Stick Blood Glucose 187 Intake and Output for Last 24 Hours 08/28/18 08/29/1819 23:59 23:59 23:59 Intake Total 3476 / 3476 Balance 3476 / 3476 Laboratory Tests Past 24 Hrs 08/28/18 08/29/18 08/30/18 18:40 05:05 05:52 WBC RBC Hgb Hct MCV MCH MCHC RDW RDW Differential Plt Count MPV Immature Gran % (Auto) Neut % (Auto) Lymph % (Auto) Rolette % (Auto) Eos % (Auto) Baso % (Auto) Absolute Neuts (auto) Absolute Lymphs (auto) Total Counted Neutrophils % (Manual) Band Neutrophils % Lymphocytes % (Manual) Monocytes % (Manual) Eosinophils % (Manual) Basophils % (Manual) Metamyelocytes % Diff Path Review Reviewed Reviewed Platelet Estimate Sodium Potassium Chloride Carbon Dioxide Anion Gap BUN Creatinine Estim Creat Clear Calc Est GFR (MDRD) Af Amer Est GFR (MDRD) Non-Af BUN/Creatinine Ratio Glucose Calcium Vancomycin Trough 7.7 S.aureus Protein A PCR MRSA (PCR) 08/30/18 08/30/18 08/30/18 05:52 05:52 07:45 WBC 16.6 H RBC 3.56 L Hgb 10.1 L Hct 31.8 L MCV 89.3 MCH 28.4 MCHC 31.8 L RDW 14.7 H RDW Differential 48.0 H Plt Count 206 MPV 10.0 Immature Gran % (Auto) LINING LAYER Neut % (Auto) LINING LAYER Lymph % (Auto) LINING LAYER Rolette % (Auto) LIN[place] LAYER Eos % (Auto) LINING LAYER Baso % (Auto) LINING LAYER Absolute Neuts (auto) 13.4 H Absolute Lymphs (auto) 1.16 Total Counted 100 Neutrophils % (Manual) 67 Band Neutrophils % 13 H Lymphocytes % (Manual) 7 L Monocytes % (Manual) 10 Eosinophils % (Manual) 1 Basophils % (Manual) 1 Metamyelocytes % 1 Diff Path Review Reviewed Platelet Estimate ADEQUATE Sodium 139 Potassium 3.9 Chloride 106 Carbon Dioxide 25.0 Anion Gap 8 BUN 7 Creatinine 1.08 H Estim Creat Clear Calc 56.96 Est GFR (MDRD) Af Amer 74 Est GFR (MDRD) Non-Af 61 BUN/Creatinine Ratio 6.5 L Glucose 160 H Calcium 8.4 L Vancomycin Trough S.aureus Protein A PCR Pending MRSA (PCR) Pending POC Glucose 08/30/18 08/30/18 08/29/18 11:20 06:43 21:20 POC Glucose 226 H 178 H 238 H 08/29/18 17:39 POC Glucose 218 H Assessment/Plan All Active Problems (Last Reviewed 08/29/18 @ 04:32 by Gen Butt MD) Sepsis due to cellulitis (Acute) Constipation (Acute) Nausea and vomiting (Acute) UTI (urinary tract infection) (Resolved) Patient was examined and informed of current findings. Discussed ulceration of left heel. the ulceration is full thickness and is in very difficult area, this being the heel. It is very critical to offload this ulceration while in bed otherwise, she will be at high risk of nonhealing. Patient seen prior to going for mri. I agree with mri to assure no underlying osteomyelitis. if bone infection present, she has several options. one option would be to try and treat with antibiotics and local wound care vs amputation. will await mri results. Today, sharp debridement of periwound and eschar was performed. debridement was performed thru subcutaneous tissue with scissors and forceps. there is firm adherent eschar. this could benefit from santyl collagenase vs surgical debridement. await mri results and may proceed with surgical debridement thereafter. recommend offloading while in bed. right foot has noninfected callus that was debrided with 15 blade. offload right heel in bed. patient in need for new diabetic shoes. she needs to make f/u after hospitalization and become compliant with follow-up. await mri.
[2018-08-30 14:41] LABS: M R Staph aureus DNA By PCR Negative (Negative); Staph aureus DNA By PCR POSITIVE (Negative)
[2018-08-30 14:42] LABS: Probe Check PASS; Specimen Processing Control PASS
[2018-08-30 15:37] VITALS: BP 120/73; PULSE 77; RESP 16; TEMP 37.7; O2SAT 99
[2018-08-30 15:56] LABS: Bedside Glucose 161 mg/dL (70-110)
[2018-08-30] MEDS: Furosemide 20 MG Tablet PO (16:46)
[2018-08-30 21:30] VITALS: BP 107/59; PULSE 79; RESP 14; TEMP 37.4; O2SAT 96
[2018-08-30] MEDS: Atorvastatin Calcium 10 MG Tablet PO (22:16)
[2018-08-30 22:40] LABS: Bedside Glucose 199 mg/dL (70-110)
[2018-08-31 02:30] VITALS: BP 109/68; PULSE 81; RESP 14; TEMP 37.1; O2SAT 98
[2018-08-31 06:26] LABS: Bedside Glucose 149 mg/dL (70-110)
[2018-08-31 07:25] LABS: Anion Gap 9 (5-15); BUN 7 mg/dL (7-18); BUN/Creat Ratio 6.4 RATIO (10-20); Calcium,Total 8.9 mg/dL (8.5-10.1); Chloride 104 mmol/L (98-107); EST Glomerular Filtration Rate 60 mL/min (>60); Est Glom Filt Rate - Afr Amer 72 mL/min (>60); Estimated Creatinine Clearance 55.92 ml/min; Glucose 134 mg/dL (74-106); Potassium 3.8 mmol/L (3.5-5.1); Sodium Level 138 mmol/L (136-145)
[2018-08-31 07:45] LABS: Hematocrit 33.5 % (37-47); Hemoglobin 10.6 g/dl (12.0-15.0); Mean Corp Hgb Conc 31.6 g/gl (32-36); Mean Corpuscular Volume 88.6 fL (81-99); Mean Platelet Vol. 10.6 fl (6.2-12.0); Platelet Count 233 K/mm3 (150-450); RBC Distribution Width CV 14.6 % (11.6-14.6); RBC Distribution Width SD 46.4 fl (35.1-43.9); Red Blood Count 3.78 M/mm3 (4.2-5.4); White Blood Count 17.4 K/mm3 (4.4-11.0)
[2018-08-31 07:57] LABS: Differential Indicated MANUAL DIFF; POSITIVE COUNT YES; POSITIVE DIFFERENTIAL YES; POSITIVE MORPHOLOGY YES
[2018-08-31 08:41] LABS: Eosinophil 1 % (0-5); Lymphocyte 18 % (19-41); Metamyelocyte 3 % (0-1); Monocyte 9 % (0-10); Neutrophil-Segmented 68 % (47-70); Platelet Estimate ADEQUATE (ADEQ); Promyelocyte 1 (0-0); Red Cell Morphology NORM C+C NORMAL (NORM C&C); Total Cells Counted 100 (MANUAL DIFF)
[2018-08-31 08:42] LABS: Absolute Neutrophil Count 11.8 X10^3/uL (2.0-7.7)
[2018-08-31 09:50] VITALS: BP 116/52; PULSE 70; RESP 16; TEMP 37; O2SAT 98
[2018-08-31] MEDS: DULoxetine Hcl 60 MG Capsule PO (09:51)
[2018-08-31] MEDS: Propranolol 10 MG Tablet PO (09:51)
[2018-08-31] MEDS: Loratadine 10 MG Tablet PO (09:51)
[2018-08-31] MEDS: Enoxaparin 40 MG/0.4 ML Syringe SC (09:51)
[2018-08-31] MEDS: busPIRone 15 MG TABLET PO ×2 (09:51→22:20)
--- NOTE | 2018-08-31 09:51 | PCM.PN.HOSP ---
Patient Problems: Active and Suspected Problems (Last Reviewed 08/29/18 @ 04:32 by Gen Butt MD) Sepsis due to cellulitis (Acute) Subjective: Feeling a little bit better today, no issues overnight. Cellulitis is improving Vitals/I&O's: Vital Signs Temp Pulse Resp BP Pulse Ox 98.7 F 81 14 109/68 98 08/31/18 02:30 08/31/18 02:30 08/31/18 02:30 08/31/18 02:30 08/31/18 02:30 Oxygen Flow Rate (L/min) 2 Oxygen Delivery Method Room Air Weight: 243 lb 2.718 oz Body Mass Index (BMI) 44.4 Finger Stick Blood Glucose 187 Intake and Output for Last 24 Hours 08/29/18 08/30/18 08/31/18 23:59 23:59 23:59 Intake Total 3476 / 3476 1048 / 1048 Balance 3476 / 3476 1048 / 1048 General: Alert, Oriented x3, Cooperative, No apparent distress HEENT: Atraumatic, PERRLA, EOMI, Normocephalic Oral: Moist Mucosa Neck: Supple, No JVD, Trachea Midline Lungs: Clear to auscultation, Normal air movement, No rhonchi, No wheeze, No rales Cardiovascular: Regular rate, Regular Rhythm, Normal S1, Normal S2, No murmurs Abdomen: Soft, Non Tender, Non-Distended, No Hepato-splenomegaly Extremities: Capillary Refill Less than 3 Seconds, Edema, Tenderness Skin: Rash Present - Cellulitis on left lower extremity margins are marked, heel blister has been cleaned and dressed by wound care Neurological: Neuro grossly intact, Sensory exam intact to light touch and pain Psych/Mental Status: Normal Affect, Appropriate Microbiology Past 72 Hours 08/28/18 18:40 Blood Culture (Wb) - Left Forearm Blood Culture - Preliminary No growth in 48 hours. 08/28/18 Unknown Blood Culture (Wb) - Anticubital Right Blood Culture - Preliminary No growth in 48 hours. 08/30/18 07:45 Wound - Heel, Left Gram Stain - Final Laboratory Results 08/30/18 05:52: Diff Path Review Reviewed 08/30/18 07:45: S.aureus Protein A PCR POSITIVE H, MRSA (PCR) Negative 08/30/18 11:20: POC Glucose 226 H 08/30/18 15:45: POC Glucose 161 H 08/30/18 22:14: POC Glucose 199 H 08/31/18 06:17: POC Glucose 149 H 08/31/18 06:30: WBC 17.4 H, RBC 3.78 L, Hgb 10.6 L, Hct 33.5 L, MCV 88.6, MCH 28.0, MCHC 31.6 L, RDW 14.6, RDW Differential 46.4 H, Plt Count 233, MPV 10.6, Neut % (Auto) Not Reportable, Absolute Neuts (auto) 11.8 H, Absolute Lymphs (auto) 3.10, Total Counted 100, Neutrophils % (Manual) 68, Lymphocytes % (Manual) 18 L, Monocytes % (Manual) 9, Eosinophils % (Manual) 1, Metamyelocytes % 3 H, Promyelocytes % 1 H, Diff Path Review September, Platelet Estimate ADEQUATE, RBC Morphology NORM C+C 08/31/18 06:30: Sodium 138, Potassium 3.8, Chloride 104, Carbon Dioxide 25.0, Anion Gap 9, BUN 7, Creatinine 1.10 H, Estim Creat Clear Calc 55.92, Est GFR (MDRD) Af Amer 72, Est GFR (MDRD) Non-Af 60, BUN/Creatinine Ratio 6.4 L, Glucose 134 H, Calcium 8.9 Current Medications Acetaminophen (Tylenol) 650 mg PO Q6H PRN PRN PRN Reason: Mild Pain (1-3)/Temp > 100.7 F Last Admin: 08/29/18 21:23 Dose: 650 mg Atorvastatin Calcium (Lipitor) 10 mg PO QHS [facility] Last Admin: 08/30/18 22:16 Dose: 10 mg Buspirone HCl (Buspar) 15 mg PO BID [facility] Last Admin: 08/30/18 22:16 Dose: 15 mg Doxycycline Monohydrate (Doxycycline) 100 mg PO BID [facility] Stop: 09/10/18 10:01 Duloxetine HCl (Cymbalta) 60 mg PO DAILY [facility] Last Admin: 08/30/18 10:20 Dose: 60 mg Enoxaparin Sodium (Lovenox) 40 mg SC DAILY@1000 [facility] Last Admin: 08/30/18 10:23 Dose: 40 mg Furosemide (Lasix) 20 mg PO DAILY@1700 [facility] Last Admin: 08/30/18 16:46 Dose: 20 mg Furosemide (Lasix) 40 mg PO DAILY [facility] Last Admin: 08/30/18 10:21 Dose: 40 mg Cefepime HCl 2 gm/ Sodium (Chloride) 100 mls @ 200 mls/hr IV Q12 [facility] Last Admin: 08/30/18 22:18 Dose: 200 mls/hr Insulin Glargine (Lantus (Bk)) 15 units SC QHS [facility] Last Admin: 08/30/18 22:16 Dose: 15 u Insulin Human Lispro (Humalog Kwikpen (Bk)) 0 unit SQ ACHS [facility]; Protocol Last Admin: 08/31/18 06:19 Dose: Not Given Loratadine (Claritin) 10 mg PO DAILY [facility] Last Admin: 08/30/18 10:20 Dose: 10 mg Magnesium Hydroxide (Milk Of Magnesia) 30 ml PO DAILY PRN PRN PRN Reason: Constipation Morphine Sulfate () 2 - 4 mg IV Q4H PRN PRN PRN Reason: MOD-SEVERE PAIN (4-10/10) Morphine Sulfate () 2 - 4 mg IV Q4H PRN PRN PRN Reason: MOD-SEVERE PAIN (4-10/10) Ondansetron HCl (Zofran) 4 mg IV Q8H PRN PRN PRN Reason: NAUSEA Last Admin: 08/29/18 23:09 Dose: 4 mg Oxycodone HCl (Oxyir) 5 - 10 mg PO Q4H PRN PRN PRN Reason: MOD-SEVERE PAIN (4-10/10) Last Admin: 08/30/18 18:09 Dose: 10 mg Polyethylene Glycol (Miralax) 17 gm PO DAILY PRN PRN PRN Reason: Constipation Pregabalin (Lyrica) 75 mg PO DAILY [facility] Last Admin: 08/30/18 10:21 Dose: 75 mg Propranolol HCl (Inderal) 10 mg PO DAILY [facility] Last Admin: 08/30/18 10:21 Dose: 10 mg Pseudoephedrine HCl (Sudafed) 30 mg PO Q6H PRN PRN PRN Reason: CONGESTION Senna/Docusate Sodium (Senokot-S, Joan-Colace) 1 tablet PO BID [facility] Last Admin: 08/30/18 22:16 Dose: 1 tablet Sodium Chloride () 5 - 15 ml IV UD PRN PRN Reason: SALINE FLUSH Last Admin: 08/30/18 22:16 Dose: 10 ml Medical Necessity - Tobacco Use Smoking Status: Never smoker Assessment/Plan All Active Problems (Last Reviewed 08/29/18 @ 04:32 by Gen Butt MD) Sepsis due to cellulitis (Acute) Constipation (Acute) Nausea and vomiting (Acute) UTI (urinary tract infection) (Resolved) 1. Sepsis secondary to left lower extremity cellulitis 4/bilateral lower extremity edema -Her sepsis has resolved, however she did have worse leukocytosis today -C/w cefepime and will add doxycycline for her positive MRSA screen -Blood cultures are negative for 48 hours -MRI negative for osteo, appreciate podiatry input -Can continue with Lasix 2. HLD/DM 2 with neuropathy -We will continue with her Lipitor -Will hold her metformin, Victoza and put her on long-acting insulin as well as continue her sliding scale insulin -Continue with Lyrica 3. Anxiety/depression -Stable -Continue with BuSpar and Cymbalta 4. Spina bifida -May have urinary and bowel dysfunction -We will continue to support while here in the hospital DVT: Lovenox Code Visit Inpatient E&M: 77447 Subs Hosp L2
[2018-08-31] MEDS: Furosemide 40 MG Tablet PO (09:52)
[2018-08-31] MEDS: 0.9% NaCl Peripheral Flush Adult/Peds IV ×6 (09:52→22:18)
[2018-08-31] MEDS: Pregabalin 75 MG Capsule PO (09:53)
[2018-08-31] MEDS: Senna/Docusate Sodium 1 Tablet PO ×2 (09:54→22:20)
--- NOTE | 2018-08-31 09:54 | PN_ITS ---
Patient Problems: Active and Suspected Problems (Last Reviewed 08/29/18 @ 04:32 by Gen Butt MD) Sepsis due to cellulitis (Acute) Subjective: Feeling a little bit better today, no issues overnight. Cellulitis is improving Vitals/I&O's: Vital Signs Temp Pulse Resp BP Pulse Ox 98.7 F 81 14 109/68 98 08/31/18 02:30 08/31/18 02:30 08/31/18 02:30 08/31/18 02:30 08/31/18 02:30 Oxygen Flow Rate (L/min) 2 Oxygen Delivery Method Room Air Weight: 243 lb 2.718 oz Body Mass Index (BMI) 44.4 Finger Stick Blood Glucose 187 Intake and Output for Last 24 Hours 08/29/18 08/30/18 08/31/18 23:59 23:59 23:59 Intake Total 3476 / 3476 1048 / 1048 Balance 3476 / 3476 1048 / 1048 General: Alert, Oriented x3, Cooperative, No apparent distress HEENT: Atraumatic, PERRLA, EOMI, Normocephalic Oral: Moist Mucosa Neck: Supple, No JVD, Trachea Midline Lungs: Clear to auscultation, Normal air movement, No rhonchi, No wheeze, No rales Cardiovascular: Regular rate, Regular Rhythm, Normal S1, Normal S2, No murmurs Abdomen: Soft, Non Tender, Non-Distended, No Hepato-splenomegaly Extremities: Capillary Refill Less than 3 Seconds, Edema, Tenderness Skin: Rash Present - Cellulitis on left lower extremity margins are marked, heel blister has been cleaned and dressed by wound care Neurological: Neuro grossly intact, Sensory exam intact to light touch and pain Psych/Mental Status: Normal Affect, Appropriate Microbiology Past 72 Hours 08/28/18 18:40 Blood Culture (Wb) - Left Forearm Blood Culture - Preliminary No growth in 48 hours. 08/28/18 Unknown Blood Culture (Wb) - Anticubital Right Blood Culture - Preliminary No growth in 48 hours. 08/30/18 07:45 Wound - Heel, Left Gram Stain - Final Laboratory Results 08/30/18 05:52: Diff Path Review Reviewed 08/30/18 07:45: S.aureus Protein A PCR POSITIVE H, MRSA (PCR) Negative 08/30/18 11:20: POC Glucose 226 H 08/30/18 15:45: POC Glucose 161 H 08/30/18 22:14: POC Glucose 199 H 08/31/18 06:17: POC Glucose 149 H 08/31/18 06:30: WBC 17.4 H, RBC 3.78 L, Hgb 10.6 L, Hct 33.5 L, MCV 88.6, MCH 28.0, MCHC 31.6 L, RDW 14.6, RDW Differential 46.4 H, Plt Count 233, MPV 10.6, Neut % (Auto) Not Reportable, Absolute Neuts (auto) 11.8 H, Absolute Lymphs (auto) 3.10, Total Counted 100, Neutrophils % (Manual) 68, Lymphocytes % (Manual) 18 L, Monocytes % (Manual) 9, Eosinophils % (Manual) 1, Metamyelocytes % 3 H, Promyelocytes % 1 H, Diff Path Review September, Platelet Estimate ADEQUATE, RBC Morphology NORM C+C 08/31/18 06:30: Sodium 138, Potassium 3.8, Chloride 104, Carbon Dioxide 25.0, Anion Gap 9, BUN 7, Creatinine 1.10 H, Estim Creat Clear Calc 55.92, Est GFR (MDRD) Af Amer 72, Est GFR (MDRD) Non-Af 60, BUN/Creatinine Ratio 6.4 L, Glucose 134 H, Calcium 8.9 Current Medications Acetaminophen (Tylenol) 650 mg PO Q6H PRN PRN PRN Reason: Mild Pain (1-3)/Temp > 100.7 F Last Admin: 08/29/18 21:23 Dose: 650 mg Atorvastatin Calcium (Lipitor) 10 mg PO QHS [facility] Last Admin: 08/30/18 22:16 Dose: 10 mg Buspirone HCl (Buspar) 15 mg PO BID [facility] Last Admin: 08/30/18 22:16 Dose: 15 mg Doxycycline Monohydrate (Doxycycline) 100 mg PO BID [facility] Stop: 09/10/18 10:01 Duloxetine HCl (Cymbalta) 60 mg PO DAILY [facility] Last Admin: 08/30/18 10:20 Dose: 60 mg Enoxaparin Sodium (Lovenox) 40 mg SC DAILY@1000 [facility] Last Admin: 08/30/18 10:23 Dose: 40 mg Furosemide (Lasix) 20 mg PO DAILY@1700 [facility] Last Admin: 08/30/18 16:46 Dose: 20 mg Furosemide (Lasix) 40 mg PO DAILY [facility] Last Admin: 08/30/18 10:21 Dose: 40 mg Cefepime HCl 2 gm/ Sodium (Chloride) 100 mls @ 200 mls/hr IV Q12 [facility] Last Admin: 08/30/18 22:18 Dose: 200 mls/hr Insulin Glargine (Lantus (Bk)) 15 units SC QHS [facility] Last Admin: 08/30/18 22:16 Dose: 15 u Insulin Human Lispro (Humalog Kwikpen (Bk)) 0 unit SQ ACHS [facility]; Protocol Last Admin: 08/31/18 06:19 Dose: Not Given Loratadine (Claritin) 10 mg PO DAILY [facility] Last Admin: 08/30/18 10:20 Dose: 10 mg Magnesium Hydroxide (Milk Of Magnesia) 30 ml PO DAILY PRN PRN PRN Reason: Constipation Morphine Sulfate () 2 - 4 mg IV Q4H PRN PRN PRN Reason: MOD-SEVERE PAIN (4-10/10) Morphine Sulfate () 2 - 4 mg IV Q4H PRN PRN PRN Reason: MOD-SEVERE PAIN (4-10/10) Ondansetron HCl (Zofran) 4 mg IV Q8H PRN PRN PRN Reason: NAUSEA Last Admin: 08/29/18 23:09 Dose: 4 mg Oxycodone HCl (Oxyir) 5 - 10 mg PO Q4H PRN PRN PRN Reason: MOD-SEVERE PAIN (4-10/10) Last Admin: 08/30/18 18:09 Dose: 10 mg Polyethylene Glycol (Miralax) 17 gm PO DAILY PRN PRN PRN Reason: Constipation Pregabalin (Lyrica) 75 mg PO DAILY [facility] Last Admin: 08/30/18 10:21 Dose: 75 mg Propranolol HCl (Inderal) 10 mg PO DAILY [facility] Last Admin: 08/30/18 10:21 Dose: 10 mg Pseudoephedrine HCl (Sudafed) 30 mg PO Q6H PRN PRN PRN Reason: CONGESTION Senna/Docusate Sodium (Senokot-S, Joan-Colace) 1 tablet PO BID [facility] Last Admin: 08/30/18 22:16 Dose: 1 tablet Sodium Chloride () 5 - 15 ml IV UD PRN PRN Reason: SALINE FLUSH Last Admin: 08/30/18 22:16 Dose: 10 ml Medical Necessity - Tobacco Use Smoking Status: Never smoker Assessment/Plan All Active Problems (Last Reviewed 08/29/18 @ 04:32 by Gen Butt MD) Sepsis due to cellulitis (Acute) Constipation (Acute) Nausea and vomiting (Acute) UTI (urinary tract infection) (Resolved) 1. Sepsis secondary to left lower extremity cellulitis 4/bilateral lower extremity edema -Her sepsis has resolved, however she did have worse leukocytosis today -C/w cefepime and will add doxycycline for her positive MRSA screen -Blood cultures are negative for 48 hours -MRI negative for osteo, appreciate podiatry input -Can continue with Lasix 2. HLD/DM 2 with neuropathy -We will continue with her Lipitor -Will hold her metformin, Victoza and put her on long-acting insulin as well as continue her sliding scale insulin -Continue with Lyrica 3. Anxiety/depression -Stable -Continue with BuSpar and Cymbalta 4. Spina bifida -May have urinary and bowel dysfunction -We will continue to support while here in the hospital DVT: Lovenox Code Visit Inpatient E&M: 06342 Subs Hosp L2
[2018-08-31] MEDS: oxyCODONE 5 MG Tablet PO (10:00)
[2018-08-31] MEDS: Insulin Lispro 100 UNIT/ML INSULN.PEN SQ ×3 (11:29→22:19)
[2018-08-31] MEDS: Doxycycline 100 MG CAPSULE PO ×2 (11:31→22:19)
[2018-08-31 11:40] LABS: Bedside Glucose 223 mg/dL (70-110)
[2018-08-31] MEDS: Morphine 2 MG/ML Syringe IV ×4 (12:08→22:17)
--- NOTE | 2018-08-31 12:40 | ART_ITS ---
Reason For Study: LEFT HEEL ULCER Left Segmental Pressures Left brachial= 113mmHg. Left posterior tibial artery = 150mmHg. Left dorsalis pedis artery = 144mmHg. Left digit = 151 mmHg. Right Segmental Pressures Right brachial= 118mmHg. Right posterior tibial artery = 148mmHg. Right dorsalis pedis artery = 142mmHg. Right digit = 138 mmHg. Indices The right ankle brachial index by the dorsalis pedis is 1.2. The right ankle brachial index by the posterior tibial artery is 1.25. The right digital-brachial index is 1.17. The left ankle brachial index by the dorsalis pedis is 1.22. The left ankle brachial index by the posterior tibial artery is 1.27. The left digital-brachial index is 1.28. Interpretation Summary Normal bilateral lower extremity ankle brachial indices and doppler waveforms at rest. Volume pulse recordings are normal bilaterally Normal study Ordering Physician: Gaurav Gomez Referring Physician: Gen Butt Performed By: Nicole Price RVT, RDCS
--- NOTE | 2018-08-31 12:40 | UL_PTH ---
PATIENT: HEBER BAILON LOC: [facility]3 U#:[id number] AGE/SX: 37/F ROOM: [facility]313 RE08/28/[address]: Dr. Elida Eli DO : 1980 BED: 1 DIS: 09/04/2018 SPEC #: [id number] RECD: 08/31/18 13:47 STATUS: KIM REQ #: [id number] EFRAIN: 08/31/18 12:[address]: Gaurav Gomez DEPT: SURGICAL PATHOLOGY RECD BY: Lencho Wade ENTERED: 08/31/18 13:48 SP TYPE: ULCER OTHR DR: MD Dr. Will Cleveland MD Dr. Matthew Testrake, DPM Dr. Too Hendricks MD Tissues: Foot, NOS Procedures: Decalcification bone/plaque Surgery Specimen Level III Comments: @ Ordering doctor for SUIII edited from to @ by ASHLEY at 08/31/18 1440 @ Submitting doctor edited from to @ by RGOOD at 08/31/18 1440 HEADER OPERATION: Biopsy of left heel ulceration PRE-OP DIAGNOSIS: Diabetic neuropathy with decubitus ulceration TISSUE SUBMITTED: Left heel ulcer MICROSCOPIC DIAGNOSIS Left heel ulcer, biopsy: A piece of fibroadipose tissue with acute inflammation and abscess formation. See comment. BALBIR:kateryna 09/05/18 COMMENT No bony tissue is identified. MICROSCOPIC DESCRIPTION Slides are reviewed. GROSS DESCRIPTION Received in fixative is one container labeled with the patient's name and designated left heel. The specimen consists of a piece of wilson-light yellow, congested tissue measuring 0.6 x 0.6 x 0.1 cm. A possible fragment of bone is also noted. The entire specimen is submitted in one cassette after decalcification. / BALBIR:kateryna 08/31/18 TC:2 CPT: 82474, 11494
[2018-08-31 12:42] LABS: Pathology Skin Biopsy SEE PATHOLOGY REPORT
[2018-08-31 13:40] LABS: Pathologist Review Reviewed
[2018-08-31 14:33] VITALS: BP 115/67; PULSE 77; RESP 14; TEMP 37.1; O2SAT 99
--- NOTE | 2018-08-31 16:03 | PCM.PN.SRG ---
Patient Problems: Active and Suspected Problems (Last Reviewed 08/29/18 @ 04:32 by Gen Butt MD) Sepsis due to cellulitis (Acute) Subjective: patient seen at bedside this afternoon for evaluation of ulceration of left heel. patient tolerating antibiotics nicely. denies any pain out of proportion. denies n/v/f/c. still having wbc that is elevated. had mri that was negative for abscess or osteomyelitis. Objective: patient is alert and orientated x 3. she does not appear in any distress. vascular: DP and PT pulses are palpable to left lower extremity. cft is less than 5 seconds. skin temperature is warm to warm. erythema of left foot is improving. derm: there is necrotic eschar of left heel. the ulceration measures 7.2 cm x 2.8 cm x 0.2 cm. there is no exposed bone. there is no purulence or fluctuance. there is no fould odor. m/s: no calf pain present to left lower extremity. mri of left foot reviewed. no fluid filled abscess or bone destructive process. - Physical Exam Vital Signs Temp Pulse Resp BP Pulse Ox 98.8 F 77 14 115/67 99 08/31/18 14:33 08/31/18 14:33 08/31/18 14:33 08/31/18 14:33 08/31/18 14:33 Oxygen Flow Rate (L/min) 2 Oxygen Delivery Method Room Air Weight: 110.3 kg Body Mass Index (BMI) 44.4 Finger Stick Blood Glucose 187 Intake and Output for Last 24 Hours 08/29/18 08/30/18 08/31/18 23:59 23:59 23:59 Intake Total 3476 / 3476 1586 / 1586 Balance 3476 / 3476 1586 / 1586 Microbiology Past 72 Hours 08/31/18 12:30 Gram Stain - Final Ulcer, Decubitus - Leg, Left 08/30/18 07:45 Gram Stain - Final Wound - Heel, Left Wound Culture - Preliminary Staphylococcus aureus Mixed Gram Positive Organisms 08/28/18 18:40 Blood Culture - Preliminary Blood Culture (Wb) - Left Forearm No growth in 48 hours. 08/28/18 Unknown Blood Culture - Preliminary Blood Culture (Wb) - Anticubital Right No growth in 48 hours. Laboratory Tests Past 24 Hrs 08/31/18 08/31/18 06:30 06:30 WBC 17.4 H RBC 3.78 L Hgb 10.6 L Hct 33.5 L MCV 88.6 MCH 28.0 MCHC 31.6 L RDW 14.6 RDW Differential 46.4 H Plt Count 233 MPV 10.6 Neut % (Auto) Not Reportable Absolute Neuts (auto) 11.8 H Absolute Lymphs (auto) 3.10 Total Counted 100 Neutrophils % (Manual) 68 Lymphocytes % (Manual) 18 L Monocytes % (Manual) 9 Eosinophils % (Manual) 1 Metamyelocytes % 3 H Promyelocytes % 1 H Diff Path Review Reviewed Platelet Estimate ADEQUATE RBC Morphology NORM C+C Sodium 138 Potassium 3.8 Chloride 104 Carbon Dioxide 25.0 Anion Gap 9 BUN 7 Creatinine 1.10 H Estim Creat Clear Calc 55.92 Est GFR (MDRD) Af Amer 72 Est GFR (MDRD) Non-Af 60 BUN/Creatinine Ratio 6.4 L Glucose 134 H Calcium 8.9 POC Glucose 08/31/18 08/31/18 08/30/18 11:28 06:17 22:14 POC Glucose 223 H 149 H 199 H Medical Necessity - Tobacco Use Smoking Status: Never smoker Assessment/Plan All Active Problems (Last Reviewed 08/29/18 @ 04:32 by Gen Butt MD) Sepsis due to cellulitis (Acute) Constipation (Acute) Nausea and vomiting (Acute) UTI (urinary tract infection) (Resolved) patient was examined and informed of current findings. Discussed ulceration of left foot. on exam, there is necrosis present. I reviewed this presentation with her and discussed debridement. there are various forms of debridement in which we can utilize not limited to sharp debridement, enzymatic debridement and surgical debridement. I discussed advantages to both. I proposed to patient sharp debridement today and use of santyl. I am going to order pvr on patient to assure adequate perfusion to her foot. I will watch the foot over the next few days/weeks. if this wound fails to improve, I have informed her that other options would be for surgical debridement and application of wound vac. I have informed patient that the longer this wound remains open, the greater risk of bone infection and loss of leg or need for antibiotics. I have reviewed mri. there is no abscess or osteomyelitis. cellulitis appears to be improving. continue with antibiotics. today, the left foot was prepped with chloroprep. sharp debridement was performed with 10 blade and forceps. debridement was performed thru dermis, epidermis, subcutaneous tissue. bleeding present and controlled with pressure. will continue with santyl daily and use of offloading boot. I did send tissue for culture and pathology. Patient is to continue with antibiotics. In event I am out of town, I will be contacting Dr. Faria for evaluation this weekend if he is present in hospital, he may be able to see this patient but I will contact him prior. await pvr and further evaluation prior to discharge
[2018-08-31] MEDS: Furosemide 20 MG Tablet PO (16:34)
[2018-08-31] MEDS: Collagenase 30gm Tube 1 APPLIC TOPICAL (16:36)
[2018-08-31 16:46] LABS: Bedside Glucose 226 mg/dL (70-110)
[2018-08-31 22:09] VITALS: BP 125/68; PULSE 90; RESP 18; TEMP 37.9; O2SAT 98
[2018-08-31] MEDS: Atorvastatin Calcium 10 MG Tablet PO (22:20)
[2018-08-31 22:40] LABS: Bedside Glucose 191 mg/dL (70-110)
[2018-09-01 02:00] VITALS: BP 116/74; PULSE 74; RESP 16; TEMP 37.1; O2SAT 97
[2018-09-01] MEDS: Morphine 2 MG/ML Syringe IV (02:35)
[2018-09-01] MEDS: 0.9% NaCl Peripheral Flush Adult/Peds IV ×2 (02:35→09:13)
[2018-09-01] MEDS: Insulin Lispro 100 UNIT/ML INSULN.PEN SQ ×4 (06:51→22:24)
[2018-09-01 07:06] LABS: Bedside Glucose 153 mg/dL (70-110)
[2018-09-01 07:22] LABS: Hematocrit 33.9 % (37-47); Hemoglobin 10.9 g/dl (12.0-15.0); Mean Corp Hgb Conc 32.2 g/gl (32-36); Mean Corpuscular Hgb 28.4 pg (27.0-32.0); Mean Corpuscular Volume 88.3 fL (81-99); Mean Platelet Vol. 9.9 fl (6.2-12.0); Platelet Count 211 K/mm3 (150-450); RBC Distribution Width CV 14.5 % (11.6-14.6); RBC Distribution Width SD 46.7 fl (35.1-43.9); Red Blood Count 3.84 M/mm3 (4.2-5.4); White Blood Count 16.3 K/mm3 (4.4-11.0)
[2018-09-01 07:23] LABS: Differential Indicated MANUAL DIFF; POSITIVE COUNT YES; POSITIVE DIFFERENTIAL NO; POSITIVE MORPHOLOGY YES
[2018-09-01 07:32] LABS: Anion Gap 8 (5-15); BUN 9 mg/dL (7-18); BUN/Creat Ratio 8.5 RATIO (10-20); Calcium,Total 8.9 mg/dL (8.5-10.1); Chloride 102 mmol/L (98-107); Creatinine, Serum 1.06 mg/dL (0.55-1.02); EST Glomerular Filtration Rate 62 mL/min (>60); Est Glom Filt Rate - Afr Amer 75 mL/min (>60); Estimated Creatinine Clearance 58.03 ml/min; Glucose 159 mg/dL (74-106); Potassium 3.5 mmol/L (3.5-5.1); Sodium Level 137 mmol/L (136-145)
[2018-09-01 07:57] LABS: Eosinophil 2 % (0-5); Lymphocyte 19 % (19-41); Metamyelocyte 9 % (0-1); Monocyte 4 % (0-10); Myelocyte 1 (0-0); Neutrophil-Band 3 % (0-5); Neutrophil-Segmented 62 % (47-70); Total Cells Counted 100 (MANUAL DIFF)
[2018-09-01 07:58] LABS: Platelet Estimate ADEQUATE (ADEQ); Red Cell Morphology NORM C+C NORMAL (NORM C&C)
[2018-09-01 08:05] LABS: Absolute Neutrophil Count 10.6 X10^3/uL (2.0-7.7)
--- NOTE | 2018-09-01 08:33 | VDLE_ITS ---
Reason For Study: SWELLING Procedure LEFT Exam performed portable in patient room. GSV is normal. The study was technically limited. CFV is compressible, spontaneous, phasic, A preliminary report was called and/or faxed competent, and demonstrates normal to MS3. augmentation. FV is compressible, spontaneous, phasic, competent and demonstrates normal augmentation. POP V is compressible, spontaneous, phasic, competent and demonstrates normal augmentation. T/P Trunk is compressible. PTV is compressible. LT PerV is compressible. Left distal SFV is not well visualized. Left proximal calf veins are not well visualized. Interpretation Summary There is no evidence of left lower extremity deep vein thrombosis. Left greater saphenous vein appears patent and compressible segmentally. Poorly or not visualized left distal femoral vein and proximal calf veins. Ordering Physician: Too Hendricks Referring Physician: STEPHANIE DIETZ Performed By: Olivia Ochoa, [place], RVT
--- NOTE | 2018-09-01 08:41 | PCM.PN.SRG ---
Patient Problems: Active and Suspected Problems (Last Reviewed 08/29/18 @ 04:32 by Gen Butt MD) Sepsis due to cellulitis (Acute) Subjective: Patient is seen at bedside this morning. has no complaints. denies n/v/f/c. pain is improved. Objective: patient is alert and orientated x 3. she does not appear to be in any distress vascular: DP and PT pulses are palpable to left lower extremity. cft is brisk. skin temperature is warm to warm. erythema is much improved. derm: there is ulceration to plantar left heel. there is mixture of fibrotic and granulation tissue. there is no fluctuance on exam. there is no erythema and no pus. Ulceration measures 7.2 cm x 2.8 cm x 0.2 cm. Ulceration was debrided of slough today. there is approximately 80% granulation tissue with very minimal fibrotic tissue. there are no ulcerations of right foot. m/s: no calf pain present to b/l lower extremity. MRI again reviewed. no abscess of bony destructive process. - Physical Exam Vital Signs Temp Pulse Resp BP Pulse Ox 98.7 F 74 16 116/74 97 09/01/18 02:00 09/01/18 02:00 09/01/18 02:00 09/01/18 02:00 09/01/18 02:00 Oxygen Flow Rate (L/min) 2 Oxygen Delivery Method Room Air Weight: 110.3 kg Body Mass Index (BMI) 44.4 Finger Stick Blood Glucose 187 Intake and Output for Last 24 Hours 08/30/18 08/31/18 09/01/18 23:59 23:59 23:59 Intake Total 2616 / 2616 400 / 400 Output Total 2 / 2 Balance 2616 / 2616 398 / 398 Microbiology Past 72 Hours 08/31/18 12:30 Gram Stain - Final Ulcer, Decubitus - Leg, Left 08/30/18 07:45 Gram Stain - Final Wound - Heel, Left Wound Culture - Preliminary Staphylococcus aureus Mixed Gram Positive Organisms 08/28/18 18:40 Blood Culture - Preliminary Blood Culture (Wb) - Left Forearm No growth in 48 hours. 08/28/18 Unknown Blood Culture - Preliminary Blood Culture (Wb) - Anticubital Right No growth in 48 hours. Laboratory Tests Past 24 Hrs 08/31/18 09/01/18 09/01/18 06:30 06:45 06:45 WBC 16.3 H RBC 3.84 L Hgb 10.9 L Hct 33.9 L MCV 88.3 MCH 28.4 MCHC 32.2 RDW 14.5 RDW Differential 46.7 H Plt Count 211 MPV 9.9 Neut % (Auto) Not Reportable Absolute Neuts (auto) 11.8 H 10.6 H Absolute Lymphs (auto) 3.10 3.10 Total Counted 100 100 Neutrophils % (Manual) 68 62 Band Neutrophils % 3 Lymphocytes % (Manual) 18 L 19 Monocytes % (Manual) 9 4 Eosinophils % (Manual) 1 2 Metamyelocytes % 3 H 9 H Myelocytes % 1 H Promyelocytes % 1 H Diff Path Review Reviewed May foll Platelet Estimate ADEQUATE ADEQUATE RBC Morphology NORM C+C NORM C+C Sodium 137 Potassium 3.5 Chloride 102 Carbon Dioxide 27.0 Anion Gap 8 BUN 9 Creatinine 1.06 H Estim Creat Clear Calc 58.03 Est GFR (MDRD) Af Amer 75 Est GFR (MDRD) Non-Af 62 BUN/Creatinine Ratio 8.5 L Glucose 159 H Calcium 8.9 POC Glucose 09/01/18 08/31/18 08/31/18 06:49 22:16 16:32 POC Glucose 153 H 191 H 226 H 08/31/18 11:28 POC Glucose 223 H Medical Necessity - Tobacco Use Smoking Status: Never smoker Assessment/Plan All Active Problems (Last Reviewed 08/29/18 @ 04:32 by Gen Butt MD) Sepsis due to cellulitis (Acute) Constipation (Acute) Nausea and vomiting (Acute) UTI (urinary tract infection) (Resolved) patient was examined and informed of current findings. on exam today, there is improved appearance of the left heel ulceration. Today I performed additional debridement and upon debridement, there is increased granulation tissue. I discussed options regarding debridement not limited to sharp debridement, enzymatic debridement vs ultrasonic surgical debridement. At this time, I am pleased with the improved granulation tissue present and I feel that the addition of santyl will help to improve granulation tissue. she will require santyl at discharge. If at any point that she requires surgical debridement she would be willing to try but for now, she would like to continue with santyl. I have informed patient that it is critical to continue with no pressure to left heel. any perssure to left heel will result in worsening. There are no signs of abscess or osteomyelitis. Patient understands the longer this wound remains present, the greater the risk for osteomyelitis. I would like to see how the WBC continues to improve with antibiotics. AT discharge, she can elect to follow-up with me or the wound center. Plan in future will be to improve granulation tissue and to apply skin substitute to achieve healing. she is to remain nwb with surgical shoe. could consider heel offloading boot but with balacne issues, I will have physical therapy evaluate patient to assure ability to remain nwb left. patient agreeable to chcf placement.
[2018-09-01 09:07] VITALS: BP 135/79; PULSE 65; RESP 16; TEMP 36.9; O2SAT 96
[2018-09-01] MEDS: Acetaminophen 325 MG Tablet 650 MG PO ×2 (09:09→19:22)
[2018-09-01] MEDS: Loratadine 10 MG Tablet PO (09:10)
[2018-09-01] MEDS: oxyCODONE 5 MG Tablet PO ×4 (09:10→23:54)
[2018-09-01] MEDS: DULoxetine Hcl 60 MG Capsule PO (09:10)
[2018-09-01] MEDS: Doxycycline 100 MG CAPSULE PO ×2 (09:10→22:24)
[2018-09-01] MEDS: busPIRone 15 MG TABLET PO ×2 (09:10→22:24)
[2018-09-01] MEDS: Pregabalin 75 MG Capsule PO (09:11)
[2018-09-01] MEDS: Furosemide 40 MG Tablet PO (09:11)
[2018-09-01] MEDS: Senna/Docusate Sodium 1 Tablet PO ×2 (09:11→22:25)
[2018-09-01] MEDS: Propranolol 10 MG Tablet PO (09:12)
[2018-09-01] MEDS: Enoxaparin 40 MG/0.4 ML Syringe SC (09:13)
[2018-09-01] MEDS: Collagenase 30gm Tube 1 APPLIC TOPICAL (09:13)
--- NOTE | 2018-09-01 09:37 | PCM.PN.HOSP ---
Patient Problems: Active and Suspected Problems (Last Reviewed 08/29/18 @ 04:32 by Gen Butt MD) Sepsis due to cellulitis (Acute) Subjective: Continues to have left lower extremity pain, specifically in her calf and up behind her knee. Vitals/I&O's: Vital Signs Temp Pulse Resp BP Pulse Ox 98.4 F 65 16 135/79 H 96 09/01/18 09:07 09/01/18 09:07 09/01/18 09:07 09/01/18 09:07 09/01/18 09:07 Oxygen Flow Rate (L/min) 2 Oxygen Delivery Method Room Air Weight: 243 lb 2.718 oz Body Mass Index (BMI) 44.4 Finger Stick Blood Glucose 187 Intake and Output for Last 24 Hours 08/30/18 08/31/18 09/01/18 23:59 23:59 23:59 Intake Total 2616 / 2616 400 / 400 Output Total 2 / 2 Balance 2616 / 2616 398 / 398 General: Alert, Oriented x3, Cooperative, No apparent distress HEENT: Atraumatic, PERRLA, EOMI, Normocephalic Oral: Moist Mucosa Neck: Supple, No JVD, Trachea Midline Lungs: Clear to auscultation, Normal air movement, No rhonchi, No wheeze, No rales Cardiovascular: Regular rate, Regular Rhythm, Normal S1, Normal S2, No murmurs Abdomen: Soft, Non Tender, Non-Distended, No Hepato-splenomegaly Extremities: Capillary Refill Less than 3 Seconds, Edema, Tenderness to calf palpation on left Skin: Rash Present - Cellulitis on left lower extremity margins are marked and improved, he will have some granulation tissue in it Neurological: Neuro grossly intact, Sensory exam intact to light touch and pain Psych/Mental Status: Normal Affect, Appropriate Microbiology Past 72 Hours 08/31/18 12:30 Ulcer, Decubitus - Leg, Left Gram Stain - Final 08/30/18 07:45 Wound - Heel, Left Gram Stain - Final 08/30/18 07:45 Wound - Heel, Left Wound Culture - Preliminary Staphylococcus aureus Mixed Gram Positive Organisms 08/28/18 18:40 Blood Culture (Wb) - Left Forearm Blood Culture - Preliminary No growth in 48 hours. 08/28/18 Unknown Blood Culture (Wb) - Anticubital Right Blood Culture - Preliminary No growth in 48 hours. Laboratory Results 08/31/18 06:30: Diff Path Review Reviewed 08/31/18 11:28: POC Glucose 223 H 08/31/18 16:32: POC Glucose 226 H 08/31/18 22:16: POC Glucose 191 H 09/01/18 06:45: WBC 16.3 H, RBC 3.84 L, Hgb 10.9 L, Hct 33.9 L, MCV 88.3, MCH 28.4, MCHC 32.2, RDW 14.5, RDW Differential 46.7 H, Plt Count 211, MPV 9.9, Neut % (Auto) Not Reportable, Absolute Neuts (auto) 10.6 H, Absolute Lymphs (auto) 3.10, Total Counted 100, Neutrophils % (Manual) 62, Band Neutrophils % 3, Lymphocytes % (Manual) 19, Monocytes % (Manual) 4, Eosinophils % (Manual) 2, Metamyelocytes % 9 H, Myelocytes % 1 H, Diff Path Review May foll, Platelet Estimate ADEQUATE, RBC Morphology NORM C+C 09/01/18 06:45: Sodium 137, Potassium 3.5, Chloride 102, Carbon Dioxide 27.0, Anion Gap 8, BUN 9, Creatinine 1.06 H, Estim Creat Clear Calc 58.03, Est GFR (MDRD) Af Amer 75, Est GFR (MDRD) Non-Af 62, BUN/Creatinine Ratio 8.5 L, Glucose 159 H, Calcium 8.9 09/01/18 06:49: POC Glucose 153 H Current Medications Acetaminophen (Tylenol) 650 mg PO Q6H PRN PRN PRN Reason: Mild Pain (1-3)/Temp > 100.7 F Last Admin: 09/01/18 09:09 Dose: 650 mg Atorvastatin Calcium (Lipitor) 10 mg PO QHS [facility] Last Admin: 08/31/18 22:20 Dose: 10 mg Buspirone HCl (Buspar) 15 mg PO BID [facility] Last Admin: 09/01/18 09:10 Dose: 15 mg Collagenase (Santyl) 1 applic TOPICAL DAILY [facility]; Protocol Last Admin: 09/01/18 09:13 Dose: 1 applicatio Doxycycline Monohydrate (Doxycycline) 100 mg PO BID [facility] Stop: 09/10/18 10:01 Last Admin: 09/01/18 09:10 Dose: 100 mg Duloxetine HCl (Cymbalta) 60 mg PO DAILY [facility] Last Admin: 09/01/18 09:10 Dose: 60 mg Enoxaparin Sodium (Lovenox) 40 mg SC DAILY@1000 [facility] Last Admin: 09/01/18 09:13 Dose: 40 mg Furosemide (Lasix) 20 mg PO DAILY@1700 [facility] Last Admin: 08/31/18 16:34 Dose: 20 mg Furosemide (Lasix) 40 mg PO DAILY [facility] Last Admin: 09/01/18 09:11 Dose: 40 mg Cefepime HCl 2 gm/ Sodium (Chloride) 100 mls @ 200 mls/hr IV Q12 [facility] Last Admin: 09/01/18 09:12 Dose: 200 mls/hr Insulin Glargine (Lantus (Bkc)) 15 units SC QHS [facility] Last Admin: 08/31/18 22:19 Dose: 15 u Insulin Human Lispro (Humalog Kwikpen (Bkc)) 0 unit SQ ACHS [facility]; Protocol Last Admin: 09/01/18 06:51 Dose: 2 u Loratadine (Claritin) 10 mg PO DAILY [facility] Last Admin: 09/01/18 09:10 Dose: 10 mg Magnesium Hydroxide (Milk Of Magnesia) 30 ml PO DAILY PRN PRN PRN Reason: Constipation Morphine Sulfate () 2 - 4 mg IV Q4H PRN PRN PRN Reason: MOD-SEVERE PAIN (4-10/10) Last Admin: 09/01/18 02:35 Dose: 2 mg Morphine Sulfate () 2 - 4 mg IV Q4H PRN PRN PRN Reason: MOD-SEVERE PAIN (4-10/10) Ondansetron HCl (Zofran) 4 mg IV Q8H PRN PRN PRN Reason: NAUSEA Last Admin: 08/29/18 23:09 Dose: 4 mg Oxycodone HCl (Oxyir) 5 - 10 mg PO Q4H PRN PRN PRN Reason: MOD-SEVERE PAIN (4-10/10) Last Admin: 09/01/18 09:10 Dose: 10 mg Polyethylene Glycol (Miralax) 17 gm PO DAILY PRN PRN PRN Reason: Constipation Pregabalin (Lyrica) 75 mg PO DAILY [facility] Last Admin: 09/01/18 09:11 Dose: 75 mg Propranolol HCl (Inderal) 10 mg PO DAILY [facility] Last Admin: 09/01/18 09:12 Dose: 10 mg Pseudoephedrine HCl (Sudafed) 30 mg PO Q6H PRN PRN PRN Reason: CONGESTION Senna/Docusate Sodium (Senokot-S, Joan-Colace) 1 tablet PO BID [facility] Last Admin: 09/01/18 09:11 Dose: 1 tablet Sodium Chloride () 5 - 15 ml IV UD PRN PRN Reason: SALINE FLUSH Last Admin: 09/01/18 09:13 Dose: 10 ml Medical Necessity - Tobacco Use Smoking Status: Never smoker Assessment/Plan All Active Problems (Last Reviewed 08/29/18 @ 04:32 by Gen Butt MD) Sepsis due to cellulitis (Acute) Constipation (Acute) Nausea and vomiting (Acute) UTI (urinary tract infection) (Resolved) 1. Sepsis secondary to left lower extremity cellulitis 4/bilateral lower extremity edema -Her sepsis has resolved, however she did have worse leukocytosis today -White count improved today with the addition of doxycycline, will continue with just doxycycline and DC the cefepime. Wound culture is with staph aureus possibly MSSA versus MRSA -Blood cultures are negative for 48 hours -MRI negative for osteo, appreciate podiatry input -ABIs are normal on the left, will obtain a venous Doppler for calf pain and possible DVT -Can continue with Lasix 2. HLD/DM 2 with neuropathy -We will continue with her Lipitor -Will hold her metformin, Victoza and put her on long-acting insulin as well as continue her sliding scale insulin -Continue with Lyrica 3. Anxiety/depression -Stable -Continue with BuSpar and Cymbalta 4. Spina bifida -May have urinary and bowel dysfunction -We will continue to support while here in the hospital DVT: Lovenox Code Visit Inpatient E&M: 10580 Subs Hosp L2
--- NOTE | 2018-09-01 09:40 | PN_ITS ---
Patient Problems: Active and Suspected Problems (Last Reviewed 08/29/18 @ 04:32 by Gen Butt MD) Sepsis due to cellulitis (Acute) Subjective: Continues to have left lower extremity pain, specifically in her calf and up behind her knee. Vitals/I&O's: Vital Signs Temp Pulse Resp BP Pulse Ox 98.4 F 65 16 135/79 H 96 09/01/18 09:07 09/01/18 09:07 09/01/18 09:07 09/01/18 09:07 09/01/18 09:07 Oxygen Flow Rate (L/min) 2 Oxygen Delivery Method Room Air Weight: 243 lb 2.718 oz Body Mass Index (BMI) 44.4 Finger Stick Blood Glucose 187 Intake and Output for Last 24 Hours 08/30/18 08/31/18 09/01/18 23:59 23:59 23:59 Intake Total 2616 / 2616 400 / 400 Output Total 2 / 2 Balance 2616 / 2616 398 / 398 General: Alert, Oriented x3, Cooperative, No apparent distress HEENT: Atraumatic, PERRLA, EOMI, Normocephalic Oral: Moist Mucosa Neck: Supple, No JVD, Trachea Midline Lungs: Clear to auscultation, Normal air movement, No rhonchi, No wheeze, No rales Cardiovascular: Regular rate, Regular Rhythm, Normal S1, Normal S2, No murmurs Abdomen: Soft, Non Tender, Non-Distended, No Hepato-splenomegaly Extremities: Capillary Refill Less than 3 Seconds, Edema, Tenderness to calf palpation on left Skin: Rash Present - Cellulitis on left lower extremity margins are marked and improved, he will have some granulation tissue in it Neurological: Neuro grossly intact, Sensory exam intact to light touch and pain Psych/Mental Status: Normal Affect, Appropriate Microbiology Past 72 Hours 08/31/18 12:30 Ulcer, Decubitus - Leg, Left Gram Stain - Final 08/30/18 07:45 Wound - Heel, Left Gram Stain - Final 08/30/18 07:45 Wound - Heel, Left Wound Culture - Preliminary Staphylococcus aureus Mixed Gram Positive Organisms 08/28/18 18:40 Blood Culture (Wb) - Left Forearm Blood Culture - Preliminary No growth in 48 hours. 08/28/18 Unknown Blood Culture (Wb) - Anticubital Right Blood Culture - Preliminary No growth in 48 hours. Laboratory Results 08/31/18 06:30: Diff Path Review Reviewed 08/31/18 11:28: POC Glucose 223 H 08/31/18 16:32: POC Glucose 226 H 08/31/18 22:16: POC Glucose 191 H 09/01/18 06:45: WBC 16.3 H, RBC 3.84 L, Hgb 10.9 L, Hct 33.9 L, MCV 88.3, MCH 28.4, MCHC 32.2, RDW 14.5, RDW Differential 46.7 H, Plt Count 211, MPV 9.9, Neut % (Auto) Not Reportable, Absolute Neuts (auto) 10.6 H, Absolute Lymphs (auto) 3.10, Total Counted 100, Neutrophils % (Manual) 62, Band Neutrophils % 3, L ymphocytes % (Manual) 19, Monocytes % (Manual) 4, Eosinophils % (Manual) 2, Metamyelocytes % 9 H, Myelocytes % 1 H, Diff Path Review May foll, Platelet Estimate ADEQUATE, RBC Morphology NORM C+C 09/01/18 06:45: Sodium 137, Potassium 3.5, Chloride 102, Carbon Dioxide 27.0, Anion Gap 8, BUN 9, Creatinine 1.06 H, Estim Creat Clear Calc 58.03, Est GFR (MDRD) Af Amer 75, Est GFR (MDRD) Non-Af 62, BUN/Creatinine Ratio 8.5 L, Glucose 159 H, Calcium 8.9 09/01/18 06:49: POC Glucose 153 H Current Medications Acetaminophen (Tylenol) 650 mg PO Q6H PRN PRN PRN Reason: Mild Pain (1-3)/Temp > 100.7 F Last Admin: 09/01/18 09:09 Dose: 650 mg Atorvastatin Calcium (Lipitor) 10 mg PO QHS [facility] Last Admin: 08/31/18 22:20 Dose: 10 mg Buspirone HCl (Buspar) 15 mg PO BID [facility] Last Admin: 09/01/18 09:10 Dose: 15 mg Collagenase (Santyl) 1 applic TOPICAL DAILY [facility]; Protocol Last Admin: 09/01/18 09:13 Dose: 1 applicatio Doxycycline Monohydrate (Doxycycline) 100 mg PO BID [facility] Stop: 09/10/18 10:01 Last Admin: 09/01/18 09:10 Dose: 100 mg Duloxetine HCl (Cymbalta) 60 mg PO DAILY [facility] Last Admin: 09/01/18 09:10 Dose: 60 mg Enoxaparin Sodium (Lovenox) 40 mg SC DAILY@1000 [facility] Last Admin: 09/01/18 09:13 Dose: 40 mg Furosemide (Lasix) 20 mg PO DAILY@1700 [facility] Last Admin: 08/31/18 16:34 Dose: 20 mg Furosemide (Lasix) 40 mg PO DAILY [facility] Last Admin: 09/01/18 09:11 Dose: 40 mg Cefepime HCl 2 gm/ Sodium (Chloride) 100 mls @ 200 mls/hr IV Q12 [facility] Last Admin: 09/01/18 09:12 Dose: 200 mls/hr Insulin Glargine (Lantus (Bkc)) 15 units SC QHS [facility] Last Admin: 08/31/18 22:19 Dose: 15 u Insulin Human Lispro (Humalog Kwikpen (Bkc)) 0 unit SQ ACHS [facility]; Protocol Last Admin: 09/01/18 06:51 Dose: 2 u Loratadine (Claritin) 10 mg PO DAILY [facility] Last Admin: 09/01/18 09:10 Dose: 10 mg Magnesium Hydroxide (Milk Of Magnesia) 30 ml PO DAILY PRN PRN PRN Reason: Constipation Morphine Sulfate () 2 - 4 mg IV Q4H PRN PRN PRN Reason: MOD-SEVERE PAIN (4-10/10) Last Admin: 09/01/18 02:35 Dose: 2 mg Morphine Sulfate () 2 - 4 mg IV Q4H PRN PRN PRN Reason: MOD-SEVERE PAIN (4-10/10) Ondansetron HCl (Zofran) 4 mg IV Q8H PRN PRN PRN Reason: NAUSEA Last Admin: 08/29/18 23:09 Dose: 4 mg Oxycodone HCl (Oxyir) 5 - 10 mg PO Q4H PRN PRN PRN Reason: MOD-SEVERE PAIN (4-10/10) Last Admin: 09/01/18 09:10 Dose: 10 mg Polyethylene Glycol (Miralax) 17 gm PO DAILY PRN PRN PRN Reason: Constipation Pregabalin (Lyrica) 75 mg PO DAILY [facility] Last Admin: 09/01/18 09:11 Dose: 75 mg Propranolol HCl (Inderal) 10 mg PO DAILY [facility] Last Admin: 09/01/18 09:12 Dose: 10 mg Pseudoephedrine HCl (Sudafed) 30 mg PO Q6H PRN PRN PRN Reason: CONGESTION Senna/Docusate Sodium (Senokot-S, Joan-Colace) 1 tablet PO BID [facility] Last Admin: 09/01/18 09:11 Dose: 1 tablet Sodium Chloride () 5 - 15 ml IV UD PRN PRN Reason: SALINE FLUSH Last Admin: 09/01/18 09:13 Dose: 10 ml Medical Necessity - Tobacco Use Smoking Status: Never smoker Assessment/Plan All Active Problems (Last Reviewed 08/29/18 @ 04:32 by Gen Butt MD) Sepsis due to cellulitis (Acute) Constipation (Acute) Nausea and vomiting (Acute) UTI (urinary tract infection) (Resolved) 1. Sepsis secondary to left lower extremity cellulitis 4/bilateral lower extremity edema -Her sepsis has resolved, however she did have worse leukocytosis today -White count improved today with the addition of doxycycline, will continue with just doxycycline and DC the cefepime. Wound culture is with staph aureus possibly MSSA versus MRSA -Blood cultures are negative for 48 hours -MRI negative for osteo, appreciate podiatry input -ABIs are normal on the left, will obtain a venous Doppler for calf pain and possible DVT -Can continue with Lasix 2. HLD/DM 2 with neuropathy -We will continue with her Lipitor -Will hold her metformin, Victoza and put her on long-acting insulin as well as continue her sliding scale insulin -Continue with Lyrica 3. Anxiety/depression -Stable -Continue with BuSpar and Cymbalta 4. Spina bifida -May have urinary and bowel dysfunction -We will continue to support while here in the hospital DVT: Lovenox Code Visit Inpatient E&M: 60647 Subs Hosp L2
[2018-09-01 12:06] LABS: Bedside Glucose 153 mg/dL (70-110)
[2018-09-01 16:43] VITALS: BP 106/58; PULSE 81; RESP 16; TEMP 36.7; O2SAT 98
[2018-09-01] MEDS: Furosemide 20 MG Tablet PO (16:45)
[2018-09-01 19:01] LABS: Bedside Glucose 209 mg/dL (70-110)
[2018-09-01 22:18] VITALS: BP 115/72; PULSE 73; RESP 16; TEMP 37.2; O2SAT 97
[2018-09-01] MEDS: Atorvastatin Calcium 10 MG Tablet PO (22:25)
[2018-09-01 23:26] LABS: Bedside Glucose 212 mg/dL (70-110)
[2018-09-02 05:34] VITALS: BP 100/67; PULSE 67; RESP 16; TEMP 36.8; O2SAT 92
[2018-09-02 05:36] LABS: Bedside Glucose 124 mg/dL (70-110)
[2018-09-02 06:51] LABS: Hematocrit 34.2 % (37-47); Mean Corp Hgb Conc 32.2 g/gl (32-36); Mean Corpuscular Hgb 28.6 pg (27.0-32.0); Mean Corpuscular Volume 89.1 fL (81-99); Mean Platelet Vol. 10.3 fl (6.2-12.0); Platelet Count 232 K/mm3 (150-450); RBC Distribution Width CV 14.3 % (11.6-14.6); Red Blood Count 3.84 M/mm3 (4.2-5.4); White Blood Count 17.3 K/mm3 (4.4-11.0)
[2018-09-02 06:54] LABS: Differential Indicated MANUAL DIFF; POSITIVE COUNT YES; POSITIVE DIFFERENTIAL NO; POSITIVE MORPHOLOGY YES
[2018-09-02 07:54] LABS: Eosinophil 2 % (0-5); Hypersegmented Neutrophils RARE; Lymphocyte 26 % (19-41); Metamyelocyte 11 % (0-1); Monocyte 7 % (0-10); Neutrophil-Band 4 % (0-5); Neutrophil-Segmented 50 % (47-70); Total Cells Counted 100 (MANUAL DIFF)
[2018-09-02 07:55] LABS: Absolute Neutrophil Count 9.3 X10^3/uL (2.0-7.7); Platelet Estimate ADEQUATE (ADEQ); Red Cell Morphology NORM C+C NORMAL (NORM C&C)
--- NOTE | 2018-09-02 08:19 | PCM.PN.HOSP ---
Patient Problems: Active and Suspected Problems (Last Reviewed 08/29/18 @ 04:32 by Gen Butt MD) Sepsis due to cellulitis (Acute) Subjective: Still complains of left calf pain, there is some firmness in her calf however her Doppler was negative for DVT, this is likely thrombophlebitis Vitals/I&O's: Vital Signs Temp Pulse Resp BP Pulse Ox 98.3 F 67 16 100/67 92 09/02/18 05:34 09/02/18 05:34 09/02/18 05:34 09/02/18 05:34 09/02/18 05:34 Oxygen Flow Rate (L/min) 2 Oxygen Delivery Method Room Air Weight: 243 lb 2.718 oz Body Mass Index (BMI) 44.4 Finger Stick Blood Glucose 187 Intake and Output for Last 24 Hours 08/31/18 09/01/18 09/02/18 23:59 23:59 23:59 Intake Total 2616 / 2616 400 / 400 850 / 850 Output Total 2 / 2 Balance 2616 / 2616 398 / 398 850 / 850 General: Alert, Oriented x3, Cooperative, No apparent distress HEENT: Atraumatic, PERRLA, EOMI, Normocephalic Oral: Moist Mucosa Neck: Supple, No JVD, Trachea Midline Lungs: Clear to auscultation, Normal air movement, No rhonchi, No wheeze, No rales Cardiovascular: Regular rate, Regular Rhythm, Normal S1, Normal S2, No murmurs Abdomen: Soft, Non Tender, Non-Distended, No Hepato-splenomegaly Extremities: Capillary Refill Less than 3 Seconds, Edema, Tenderness to calf palpation on left Skin: Rash Present - Cellulitis on left lower extremity margins are marked and improved, he will have some granulation tissue in it. Firmness behind her left knee may be thrombophlebitis Neurological: Neuro grossly intact, Sensory exam intact to light touch and pain Psych/Mental Status: Normal Affect, Appropriate Microbiology Past 72 Hours 08/30/18 07:45 Wound - Heel, Left Gram Stain - Final 08/30/18 07:45 Wound - Heel, Left Wound Culture - Final Staphylococcus aureus Coag Negative Staph Gram positive sue 08/31/18 12:30 Ulcer, Decubitus - Leg, Left Gram Stain - Final 08/31/18 12:30 Ulcer, Decubitus - Leg, Left Wound Culture - Preliminary Streptococcus group C 08/28/18 18:40 Blood Culture (Wb) - Left Forearm Blood Culture - Preliminary No growth in 48 hours. 08/28/18 Unknown Blood Culture (Wb) - Anticubital Right Blood Culture - Preliminary No growth in 48 hours. Laboratory Results 09/01/18 12:02: POC Glucose 153 H 09/01/18 16:42: POC Glucose 209 H 09/01/18 22:17: POC Glucose 212 H 09/02/18 05:15: WBC 17.3 H, RBC 3.84 L, Hgb 11.0 L, Hct 34.2 L, MCV 89.1, MCH 28.6, MCHC 32.2, RDW 14.3, RDW Differential 46.0 H, Plt Count 232, MPV 10.3, Neut % (Auto) Not Reportable, Absolute Neuts (auto) 9.3 H, Absolute Lymphs (auto) 4.50, Total Counted 100, Neutrophils % (Manual) 50, Band Neutrophils % 4, Lymphocytes % (Manual) 26, Monocytes % (Manual) 7, Eosinophils % (Manual) 2, Metamyelocytes % 11 H, Diff Path Review May foll, Hypersegmented Neuts RARE, Platelet Estimate ADEQUATE, RBC Morphology NORM C+C 09/02/18 05:29: POC Glucose 124 H Current Medications Acetaminophen (Tylenol) 650 mg PO Q6H PRN PRN PRN Reason: Mild Pain (1-3)/Temp > 100.7 F Last Admin: 09/01/18 19:22 Dose: 650 mg Atorvastatin Calcium (Lipitor) 10 mg PO QHS [facility] Last Admin: 09/01/18 22:25 Dose: 10 mg Buspirone HCl (Buspar) 15 mg PO BID [facility] Last Admin: 09/01/18 22:24 Dose: 15 mg Collagenase (Santyl) 1 applic TOPICAL DAILY [facility]; Protocol Last Admin: 09/01/18 09:13 Dose: 1 applicatio Doxycycline Monohydrate (Doxycycline) 100 mg PO BID [facility] Stop: 09/10/18 10:01 Last Admin: 09/01/18 22:24 Dose: 100 mg Duloxetine HCl (Cymbalta) 60 mg PO DAILY [facility] Last Admin: 09/01/18 09:10 Dose: 60 mg Enoxaparin Sodium (Lovenox) 40 mg SC DAILY@1000 [facility] Last Admin: 09/01/18 09:13 Dose: 40 mg Furosemide (Lasix) 20 mg PO DAILY@1700 [facility] Last Admin: 09/01/18 16:45 Dose: 20 mg Furosemide (Lasix) 40 mg PO DAILY [facility] Last Admin: 09/01/18 09:11 Dose: 40 mg Insulin Glargine (Lantus (Bk)) 20 units SC QHS [facility] Last Admin: 09/01/18 22:24 Dose: 20 units Insulin Human Lispro (Humalog Kwikpen (Bk)) 0 unit SQ ACHS [facility]; Protocol Last Admin: 09/02/18 05:33 Dose: Not Given Loratadine (Claritin) 10 mg PO DAILY [facility] Last Admin: 09/01/18 09:10 Dose: 10 mg Magnesium Hydroxide (Milk Of Magnesia) 30 ml PO DAILY PRN PRN PRN Reason: Constipation Morphine Sulfate () 2 - 4 mg IV Q4H PRN PRN PRN Reason: MOD-SEVERE PAIN (4-10/10) Last Admin: 09/01/18 02:35 Dose: 2 mg Morphine Sulfate () 2 - 4 mg IV Q4H PRN PRN PRN Reason: MOD-SEVERE PAIN (4-10/10) Ondansetron HCl (Zofran) 4 mg IV Q8H PRN PRN PRN Reason: NAUSEA Last Admin: 08/29/18 23:09 Dose: 4 mg Oxycodone HCl (Oxyir) 5 - 10 mg PO Q4H PRN PRN PRN Reason: MOD-SEVERE PAIN (4-10/10) Last Admin: 09/01/18 23:54 Dose: 10 mg Polyethylene Glycol (Miralax) 17 gm PO DAILY PRN PRN PRN Reason: Constipation Pregabalin (Lyrica) 75 mg PO DAILY [facility] Last Admin: 09/01/18 09:11 Dose: 75 mg Propranolol HCl (Inderal) 10 mg PO DAILY [facility] Last Admin: 09/01/18 09:12 Dose: 10 mg Pseudoephedrine HCl (Sudafed) 30 mg PO Q6H PRN PRN PRN Reason: CONGESTION Senna/Docusate Sodium (Senokot-S, Joan-Colace) 1 tablet PO BID [facility] Last Admin: 09/01/18 22:25 Dose: 1 tablet Sodium Chloride () 5 - 15 ml IV UD PRN PRN Reason: SALINE FLUSH Last Admin: 09/01/18 09:13 Dose: 10 ml Medical Necessity - Tobacco Use Smoking Status: Never smoker Assessment/Plan All Active Problems (Last Reviewed 08/29/18 @ 04:32 by Gen Butt MD) Sepsis due to cellulitis (Acute) Constipation (Acute) Nausea and vomiting (Acute) UTI (urinary tract infection) (Resolved) 1. Sepsis secondary to left lower extremity cellulitis 4/bilateral lower extremity edema -Her sepsis has resolved -Her leukocytosis worsened today, she is still on the doxycycline and the only cultures that are positive are for coag negative staph, staph aureus, and group C strep all of which should be managed by the doxycycline -Despite her leukocytosis, she remains afebrile -Blood cultures are negative -MRI negative for osteo, appreciate podiatry input -ABIs are normal on the left, and venous Doppler is preliminarily normal -Can continue with Lasix -I discussed that she could be discharged today on her doxy considering her arterial and her venous studies were negative, however because of the pain she would like to stay 2. HLD/DM 2 with neuropathy -We will continue with her Lipitor -Will hold her metformin, Victoza and put her on long-acting insulin as well as continue her sliding scale insulin -Continue with Lyrica 3. Anxiety/depression -Stable -Continue with BuSpar and Cymbalta 4. Spina bifida -May have urinary and bowel dysfunction -We will continue to support while here in the hospital DVT: Lovenox Code Visit Inpatient E&M: 89615 Subs Hosp L2
--- NOTE | 2018-09-02 08:24 | PN_ITS ---
Patient Problems: Active and Suspected Problems (Last Reviewed 08/29/18 @ 04:32 by Gen Butt MD) Sepsis due to cellulitis (Acute) Subjective: Still complains of left calf pain, there is some firmness in her calf however her Doppler was negative for DVT, this is likely thrombophlebitis Vitals/I&O's: Vital Signs Temp Pulse Resp BP Pulse Ox 98.3 F 67 16 100/67 92 09/02/18 05:34 09/02/18 05:34 09/02/18 05:34 09/02/18 05:34 09/02/18 05:34 Oxygen Flow Rate (L/min) 2 Oxygen Delivery Method Room Air Weight: 243 lb 2.718 oz Body Mass Index (BMI) 44.4 Finger Stick Blood Glucose 187 Intake and Output for Last 24 Hours 08/31/18 09/01/18 09/02/18 23:59 23:59 23:59 Intake Total 2616 / 2616 400 / 400 850 / 850 Output Total 2 / 2 Balance 2616 / 2616 398 / 398 850 / 850 General: Alert, Oriented x3, Cooperative, No apparent distress HEENT: Atraumatic, PERRLA, EOMI, Normocephalic Oral: Moist Mucosa Neck: Supple, No JVD, Trachea Midline Lungs: Clear to auscultation, Normal air movement, No rhonchi, No wheeze, No rales Cardiovascular: Regular rate, Regular Rhythm, Normal S1, Normal S2, No murmurs Abdomen: Soft, Non Tender, Non-Distended, No Hepato-splenomegaly Extremities: Capillary Refill Less than 3 Seconds, Edema, Tenderness to calf palpation on left Skin: Rash Present - Cellulitis on left lower extremity margins are marked and improved, he will have some granulation tissue in it. Firmness behind her left knee may be thrombophlebitis Neurological: Neuro grossly intact, Sensory exam intact to light touch and pain Psych/Mental Status: Normal Affect, Appropriate Microbiology Past 72 Hours 08/30/18 07:45 Wound - Heel, Left Gram Stain - Final 08/30/18 07:45 Wound - Heel, Left Wound Culture - Final Staphylococcus aureus Coag Negative Staph Gram positive sue 08/31/18 12:30 Ulcer, Decubitus - Leg, Left Gram Stain - Final 08/31/18 12:30 Ulcer, Decubitus - Leg, Left Wound Culture - Preliminary Streptococcus group C 08/28/18 18:40 Blood Culture (Wb) - Left Forearm Blood Culture - Preliminary No growth in 48 hours. 08/28/18 Unknown Blood Culture (Wb) - Anticubital Right Blood Culture - Preliminary No growth in 48 hours. Laboratory Results 09/01/18 12:02: POC Glucose 153 H 09/01/18 16:42: POC Glucose 209 H 09/01/18 22:17: POC Glucose 212 H 09/02/18 05:15: WBC 17.3 H, RBC 3.84 L, Hgb 11.0 L, Hct 34.2 L, MCV 89.1, MCH 28.6, MCHC 32.2, RDW 14.3, RDW Differential 46.0 H, Plt Count 232, MPV 10.3, Neut % (Auto) Not Reportable, Absolute Neuts (auto) 9.3 H, Absolute Lymphs (auto) 4.50, Total Counted 100, Neutrophils % (Manual) 50, Band Neutrophils % 4, Lymphocytes % (Manual) 26, Monocytes % (Manual) 7, Eosinophils % (Manual) 2, Metamyelocytes % 11 H, Diff Path Review May foll, Hypersegmented Neuts RARE, Platelet Estimate ADEQUATE, RBC Morphology NORM C+C 09/02/18 05:29: POC Glucose 124 H Current Medications Acetaminophen (Tylenol) 650 mg PO Q6H PRN PRN PRN Reason: Mild Pain (1-3)/Temp > 100.7 F Last Admin: 09/01/18 19:22 Dose: 650 mg Atorvastatin Calcium (Lipitor) 10 mg PO QHS [facility] Last Admin: 09/01/18 22:25 Dose: 10 mg Buspirone HCl (Buspar) 15 mg PO BID [facility] Last Admin: 09/01/18 22:24 Dose: 15 mg Collagenase (Santyl) 1 applic TOPICAL DAILY [facility]; Protocol Last Admin: 09/01/18 09:13 Dose: 1 applicatio Doxycycline Monohydrate (Doxycycline) 100 mg PO BID [facility] Stop: 09/10/18 10:01 Last Admin: 09/01/18 22:24 Dose: 100 mg Duloxetine HCl (Cymbalta) 60 mg PO DAILY [facility] Last Admin: 09/01/18 09:10 Dose: 60 mg Enoxaparin Sodium (Lovenox) 40 mg SC DAILY@1000 [facility] Last Admin: 09/01/18 09:13 Dose: 40 mg Furosemide (Lasix) 20 mg PO DAILY@1700 [facility] Last Admin: 09/01/18 16:45 Dose: 20 mg Furosemide (Lasix) 40 mg PO DAILY [facility] Last Admin: 09/01/18 09:11 Dose: 40 mg Insulin Glargine (Lantus (Bk)) 20 units SC QHS [facility] Last Admin: 09/01/18 22:24 Dose: 20 units Insulin Human Lispro (Humalog Kwikpen (Bk)) 0 unit SQ ACHS [facility]; Protocol Last Admin: 09/02/18 05:33 Dose: Not Given Loratadine (Claritin) 10 mg PO DAILY [facility] Last Admin: 09/01/18 09:10 Dose: 10 mg Magnesium Hydroxide (Milk Of Magnesia) 30 ml PO DAILY PRN PRN PRN Reason: Constipation Morphine Sulfate () 2 - 4 mg IV Q4H PRN PRN PRN Reason: MOD-SEVERE PAIN (4-10/10) Last Admin: 09/01/18 02:35 Dose: 2 mg Morphine Sulfate () 2 - 4 mg IV Q4H PRN PRN PRN Reason: MOD-SEVERE PAIN (4-10/10) Ondansetron HCl (Zofran) 4 mg IV Q8H PRN PRN PRN Reason: NAUSEA Last Admin: 08/29/18 23:09 Dose: 4 mg Oxycodone HCl (Oxyir) 5 - 10 mg PO Q4H PRN PRN PRN Reason: MOD-SEVERE PAIN (4-10/10) Last Admin: 09/01/18 23:54 Dose: 10 mg Polyethylene Glycol (Miralax) 17 gm PO DAILY PRN PRN PRN Reason: Constipation Pregabalin (Lyrica) 75 mg PO DAILY [facility] Last Admin: 09/01/18 09:11 Dose: 75 mg Propranolol HCl (Inderal) 10 mg PO DAILY [facility] Last Admin: 09/01/18 09:12 Dose: 10 mg Pseudoephedrine HCl (Sudafed) 30 mg PO Q6H PRN PRN PRN Reason: CONGESTION Senna/Docusate Sodium (Senokot-S, Joan-Colace) 1 tablet PO BID [facility] Last Admin: 09/01/18 22:25 Dose: 1 tablet Sodium Chloride () 5 - 15 ml IV UD PRN PRN Reason: SALINE FLUSH Last Admin: 09/01/18 09:13 Dose: 10 ml Medical Necessity - Tobacco Use Smoking Status: Never smoker Assessment/Plan All Active Problems (Last Reviewed 08/29/18 @ 04:32 by Gen Butt MD) Sepsis due to cellulitis (Acute) Constipation (Acute) Nausea and vomiting (Acute) UTI (urinary tract infection) (Resolved) 1. Sepsis secondary to left lower extremity cellulitis 4/bilateral lower extremity edema -Her sepsis has resolved -Her leukocytosis worsened today, she is still on the doxycycline and the only cultures that are positive are for coag negative staph, staph aureus, and group C strep all of which should be managed by the doxycycline -Despite her leukocytosis, she remains afebrile -Blood cultures are negative -MRI negative for osteo, appreciate podiatry input -ABIs are normal on the left, and venous Doppler is preliminarily normal -Can continue with Lasix -I discussed that she could be discharged today on her doxy considering her arterial and her venous studies were negative, however because of the pain she would like to stay 2. HLD/DM 2 with neuropathy -We will continue with her Lipitor -Will hold her metformin, Victoza and put her on long-acting insulin as well as continue her sliding scale insulin -Continue with Lyrica 3. Anxiety/depression -Stable -Continue with BuSpar and Cymbalta 4. Spina bifida -May have urinary and bowel dysfunction -We will continue to support while here in the hospital DVT: Lovenox Code Visit Inpatient E&M: 45963 Subs Hosp L2
[2018-09-02] MEDS: Acetaminophen 325 MG Tablet 650 MG PO ×2 (08:37→15:24)
[2018-09-02] MEDS: Loratadine 10 MG Tablet PO (08:38)
[2018-09-02] MEDS: DULoxetine Hcl 60 MG Capsule PO (08:38)
[2018-09-02] MEDS: Senna/Docusate Sodium 1 Tablet PO ×2 (08:38→21:30)
[2018-09-02] MEDS: oxyCODONE 5 MG Tablet PO ×3 (08:38→20:35)
[2018-09-02] MEDS: Furosemide 40 MG Tablet PO (08:39)
[2018-09-02] MEDS: Pregabalin 75 MG Capsule PO (08:39)
[2018-09-02] MEDS: Enoxaparin 40 MG/0.4 ML Syringe SC (08:40)
[2018-09-02 11:04] VITALS: BP 109/63; PULSE 72; RESP 18; TEMP 36.6; O2SAT 98
[2018-09-02] MEDS: Doxycycline 100 MG CAPSULE PO ×2 (11:08→21:30)
[2018-09-02] MEDS: busPIRone 15 MG TABLET PO ×2 (11:08→21:30)
[2018-09-02] MEDS: Propranolol 10 MG Tablet PO (11:08)
[2018-09-02] MEDS: Collagenase 30gm Tube 1 APPLIC TOPICAL (11:09)
--- NOTE | 2018-09-02 11:29 | PCM.PN.SRG ---
Patient Problems: Active and Suspected Problems (Last Reviewed 08/29/18 @ 04:32 by Gen Butt MD) Sepsis due to cellulitis (Acute) Subjective: Patient was seen at bedside this morning. Patient denies n/v/f/c. Patient still having some pain to her left heel. patient has no other complaints. Objective: patient is alert and orientated x 3. patient does not appear in any distress. vascular: DP and Pt pulses are palpable to left lower extremity. CFT is less than 5 secons. skin temperature is warm tow arm. erythema is resolved to elft foot. Derm: there is ulceration to left heel that is mostly granular with some zuhair of firmly adherent fibrotic tissue. no exposed bone. no drainage is noted. no fluid filled collection of abscess. m/s: no calf pain present to left lower lower extremity MRI reviewed. no evidence of bone infection or abscess. - Physical Exam Vital Signs Temp Pulse Resp BP Pulse Ox 97.9 F 72 18 109/63 98 09/02/18 11:04 09/02/18 11:04 09/02/18 11:04 09/02/18 11:04 09/02/18 11:04 Oxygen Flow Rate (L/min) 2 Oxygen Delivery Method Room Air Weight: 110.3 kg Body Mass Index (BMI) 44.4 Finger Stick Blood Glucose 187 Intake and Output for Last 24 Hours 08/31/18 09/01/18 09/02/18 23:59 23:59 23:59 Intake Total 2616 / 2616 400 / 400 850 / 850 Output Total 2 / 2 Balance 2616 / 2616 398 / 398 850 / 850 Microbiology Past 72 Hours 08/31/18 12:30 Gram Stain - Final Ulcer, Decubitus - Leg, Left Wound Culture - Final Streptococcus group C 08/30/18 07:45 Gram Stain - Final Wound - Heel, Left Wound Culture - Final Staphylococcus aureus Coag Negative Staph Gram positive sue 08/28/18 18:40 Blood Culture - Preliminary Blood Culture (Wb) - Left Forearm No growth in 48 hours. 08/28/18 Unknown Blood Culture - Preliminary Blood Culture (Wb) - Anticubital Right No growth in 48 hours. Laboratory Tests Past 24 Hrs 09/02/18 05:15 WBC 17.3 H RBC 3.84 L Hgb 11.0 L Hct 34.2 L MCV 89.1 MCH 28.6 MCHC 32.2 RDW 14.3 RDW Differential 46.0 H Plt Count 232 MPV 10.3 Neut % (Auto) Not Reportable Absolute Neuts (auto) 9.3 H Absolute Lymphs (auto) 4.50 Total Counted 100 Neutrophils % (Manual) 50 Band Neutrophils % 4 Lymphocytes % (Manual) 26 Monocytes % (Manual) 7 Eosinophils % (Manual) 2 Metamyelocytes % 11 H Diff Path Review May foll Hypersegmented Neuts RARE Platelet Estimate ADEQUATE RBC Morphology NORM C+C POC Glucose 09/02/18 09/01/18 09/01/18 05:29 22:17 16:42 POC Glucose 124 H 212 H 209 H 09/01/18 12:02 POC Glucose 153 H Medical Necessity - Tobacco Use Smoking Status: Never smoker Assessment/Plan All Active Problems (Last Reviewed 08/29/18 @ 04:32 by Gen Butt MD) Sepsis due to cellulitis (Acute) Constipation (Acute) Nausea and vomiting (Acute) UTI (urinary tract infection) (Resolved) patient was examined and informed of current findings her ulceration appears stable, no pus or abscess or bone infection on mri. She appears to be improving with santyl and debridement performed yesterday. I would recommend continued offloading while in bed and nwb when ambulatory. She is on doxycycline but wbc now increasing. cultures reviewed. there is both staph aureus and strep growing. Discussed with hospitalist about adding augmentin. Will add augmentin 875 mg po bid. if this does not improve, could consider ID consult. patient does not feel she will be capable of staying off her foot at home. Will discuss with case management about rehab assignment. patient will require weekly f/u with me in my clinic for debridement and possible skin grafting. patient understands risk of limb loss in event this ulceration fails to progress.
[2018-09-02] MEDS: Insulin Lispro 100 UNIT/ML INSULN.PEN SQ ×3 (11:52→21:31)
[2018-09-02 12:00] LABS: Bedside Glucose 163 mg/dL (70-110)
[2018-09-02] MEDS: Amox/Clavulanate 875 MG Tablet PO ×2 (14:00→21:29)
[2018-09-02 15:23] VITALS: BP 108/55; PULSE 72; RESP 18; TEMP 36.7; O2SAT 99
[2018-09-02] MEDS: Furosemide 20 MG Tablet PO (16:39)
[2018-09-02 16:45] LABS: Bedside Glucose 185 mg/dL (70-110)
[2018-09-02 20:00] VITALS: PULSE 74; O2SAT 98
[2018-09-02 20:47] VITALS: BP 106/69; PULSE 74; RESP 20; TEMP 36.7; O2SAT 98
[2018-09-02] MEDS: Atorvastatin Calcium 10 MG Tablet PO (21:30)
[2018-09-02] MEDS: 0.9% NaCl Peripheral Flush Adult/Peds IV (21:42)
[2018-09-02 21:45] LABS: Bedside Glucose 230 mg/dL (70-110)
[2018-09-03] MEDS: oxyCODONE 5 MG Tablet PO ×4 (00:41→20:13)
[2018-09-03 00:44] VITALS: BP 109/69; PULSE 73; RESP 18; TEMP 36.7; O2SAT 100
--- NOTE | 2018-09-03 06:37 | NURSING ---
wound photo: left heel (photo taken by Dr Gomez on 09/01/18)
[2018-09-03 06:38] LABS: Hemoglobin 11.2 g/dl (12.0-15.0); Mean Corpuscular Hgb 28.5 pg (27.0-32.0); Mean Corpuscular Volume 89.1 fL (81-99); Platelet Count 257 K/mm3 (150-450); RBC Distribution Width CV 14.1 % (11.6-14.6); RBC Distribution Width SD 46.2 fl (35.1-43.9); Red Blood Count 3.93 M/mm3 (4.2-5.4); White Blood Count 19.7 K/mm3 (4.4-11.0)
[2018-09-03 06:43] VITALS: BP 117/69; PULSE 65; RESP 16; TEMP 36.6; O2SAT 95
[2018-09-03 06:46] LABS: Differential Indicated MANUAL DIFF; POSITIVE COUNT YES; POSITIVE DIFFERENTIAL NO; POSITIVE MORPHOLOGY YES
[2018-09-03 07:03] LABS: Eosinophil 5 % (0-5); Lymphocyte 24 % (19-41); Metamyelocyte 6 % (0-1); Monocyte 3 % (0-10); Neutrophil-Band 3 % (0-5); Neutrophil-Segmented 59 % (47-70); Platelet Estimate ADEQUATE (ADEQ); Red Cell Morphology NORM C+C NORMAL (NORM C&C); Total Cells Counted 100 (MANUAL DIFF)
[2018-09-03 07:04] LABS: Absolute Lymphocyte Count 4.73 X10^3/ul (0.83-4.51); Absolute Neutrophil Count 12.2 X10^3/uL (2.0-7.7); Lymphocyte # 4.73 X10^3/ul (4.0); Neutrophil # 12.21 X10^3/uL (2.7-7.7); Toxic Granulation 1+
[2018-09-03 07:25] LABS: Bedside Glucose 114 mg/dL (70-110)
[2018-09-03] MEDS: Loratadine 10 MG Tablet PO (09:25)
[2018-09-03] MEDS: Enoxaparin 40 MG/0.4 ML Syringe SC (09:25)
[2018-09-03] MEDS: Propranolol 10 MG Tablet PO (09:25)
[2018-09-03] MEDS: Senna/Docusate Sodium 1 Tablet PO ×2 (09:25→21:56)
[2018-09-03] MEDS: busPIRone 15 MG TABLET PO ×2 (09:25→21:56)
[2018-09-03] MEDS: DULoxetine Hcl 60 MG Capsule PO (09:25)
[2018-09-03] MEDS: Doxycycline 100 MG CAPSULE PO ×2 (09:25→21:56)
[2018-09-03] MEDS: Furosemide 40 MG Tablet PO (09:25)
[2018-09-03] MEDS: Pregabalin 75 MG Capsule PO (09:25)
[2018-09-03] MEDS: Amox/Clavulanate 875 MG Tablet PO ×2 (09:29→21:56)
[2018-09-03] MEDS: Collagenase 30gm Tube 1 APPLIC TOPICAL (09:32)
[2018-09-03 09:36] VITALS: BP 106/62; PULSE 68; RESP 16; TEMP 36.8; O2SAT 98
[2018-09-03] MEDS: Insulin Lispro 100 UNIT/ML INSULN.PEN SQ ×3 (11:03→22:00)
[2018-09-03 11:10] LABS: Bedside Glucose 190 mg/dL (70-110)
[2018-09-03 11:34] LABS: Pathologist Review Reviewed
[2018-09-03 11:44] LABS: Pathologist Review Reviewed
--- NOTE | 2018-09-03 13:09 | PN_ITS ---
Subjective: The patient is a 37-year-old female with a history of hydronephrosis, neurogenic bowel, neurogenic bladder, chronic back pain, migraine cephalgia, depression, spina bifida, neurogenic bladder, noncompliance, morbid obesity and diabetes mellitus type 2 who presented to the emergency department at [facility] on 08/28/2018 complaining of left leg pain and redness. She had been diagnosed with cellulitis and was on antibiotics. Temp at admission was 99.8 ?F. The white blood cell count was 16.5 with a mild left shift. She was admi tted to the hospital with a diagnosis of sepsis secondary to cellulitis. She was started on vancomycin and cefazolin. On physical examination there were blisters of the left heel. On 08/29 vancomycin was discontinued and she was kept on Ancef. On 08/30/2018 Ancef was continued and cefepime was added. On 09/02/2018 she was transitioned to Augmentin and doxycycline. An MRI was obtained which showed no evidence of osteomyelitis and no evidence of abscess. Dr. Gomez was consulted and recommended offloading the left heel. The area was debrided at the bedside and he recommended using Santyl with dressing changes for further debridement. On 09/02/2018 she had a venous ultrasound of the left lower extremity that showed no evidence of deep vein thrombosis. She has been afebrile since 09/01/2018 at 2 AM. Vital signs are stable. White blood cell count remains elevated and is 19.7 today. Differential today shows 59% neutrophils and 3% band neutrophils. She has 6% metamyelocytes. Eosinophils are 5%. The wound culture is growing methicillin sensitive coag negative staph aureus, a gram-positive sue and group C strep. Blood cultures were negative. Current antibiotics are Augmentin and doxycycline. The wound was examined with Dr. Gomez today and there is no pus expressed. Per Dr. Gomez it is looking much better. She denies diarrhea, sores in the mouth, vaginal discharge or itching, cough or dysuria. Continues to complain of pain in the left lower extremity and has been getting OxyIR 10 mg 3-4 times a day. - Physical Exam General: Alert, Oriented x3, Cooperative, No apparent distress Oral: Moist Mucosa, No Gingival or Mucosal Lesions/ Ulcerations Lungs: Clear to auscultation, Diminished - in the bases Cardiovascular: Regular rate, Regular Rhythm, No Gallop Abdomen: Bowel Sounds Present, Soft, Non Tender, Non-Distended, Obese, - - no diarrhea Skin: Ulcer/ Wound - the wound was examined with Dr. Gomez. no odor, no purulent DC, margins are clean Psych/Mental Status: Normal Affect, Appropriate Vital Signs Temp Pulse Resp BP Pulse Ox 98.2 F 68 16 106/62 98 09/03/18 09:36 09/03/18 09:36 09/03/18 09:36 09/03/18 09:36 09/03/18 09:36 Oxygen Flow Rate (L/min) 2 Oxygen Delivery Method Room Air Weight: 243 lb 2.718 oz Body Mass Index (BMI) 44.4 Finger Stick Blood Glucose 187 Intake and Output for Last 24 Hours 09/01/18 09/02/18 09/03/18 23:59 23:59 23:59 Intake Total 400 / 400 1850 / 1850 0 / 0 Output Total 2 / 2 0 / 0 Balance 398 / 398 1850 / 1850 0 / 0 Microbiology Past 72 Hours 08/31/18 12:30 Gram Stain - Final Ulcer, Decubitus - Leg, Left Wound Culture - Final Streptococcus group C Anaerobic Culture - Preliminary Checking for anaerobes, further studies to follow. 08/28/18 18:40 Blood Culture - Final Blood Culture (Wb) - Left Forearm No growth in 5 days. 08/28/18 Unknown Blood Culture - Final Blood Culture (Wb) - Anticubital Right No growth in 5 days. 08/30/18 07:45 Gram Stain - Final Wound - Heel, Left Wound Culture - Final Staphylococcus aureus Coag Negative Staph Gram positive sue Laboratory Tests Past 24 Hrs 09/02/18 09/03/18 05:15 06:05 WBC 19.7 H RBC 3.93 L Hgb 11.2 L Hct 35.0 L MCV 89.1 MCH 28.5 MCHC 32.0 RDW 14.1 RDW Differential 46.2 H Plt Count 257 MPV 10.0 Neut % (Auto) Not Reportable Absolute Neuts (auto) 12.2 H Absolute Lymphs (auto) 4.73 H Total Counted 100 Neutrophils % (Manual) 59 Band Neutrophils % 3 Lymphocytes % (Manual) 24 Monocytes % (Manual) 3 Eosinophils % (Manual) 5 Metamyelocytes % 6 H Differential Comment Diff Path Review Reviewed Reviewed Toxic Granulation 1+ Platelet Estimate ADEQUATE RBC Morphology NORM C+C POC Glucose 09/03/18 09/03/18 09/02/18 11:02 06:41 21:27 POC Glucose 190 H 114 H 230 H 09/02/18 16:35 POC Glucose 185 H Medical Necessity - Tobacco Use Smoking Status: Never smoker Assessment/Plan All Active Problems (Last Reviewed 08/29/18 @ 04:32 by Gen Butt MD) Sepsis due to cellulitis (Acute) Decubitus ulcer of left heel (Acute) Normochromic normocytic anemia (Acute) Diabetic ulcer of left heel with fat layer exposed (Acute) Type 2 diabetes mellitus with diabetic polyneuropathy (Acute) Delayed wound healing (Acute) Lower extremity edema (Acute) UTI (urinary tract infection) (Resolved) Impressions 1. severe sepsis due to cellulitis of the LLE with infected left heel ulcer foot - debrided by Dr. Gomez. MRI negative for evidence of osteo 2. Increasing WBC count but, the wound itself appears to be doing well. MRI negative. On 2 oral medications. 3. spina bifida with neurogenic bladder and bowel DC the doxy and the Augmentin and start Zosyn until the pt is seen by Dr. Alex - can always restart Doxy and Augmentin if he feels we should disregard the increasing WBC count. Consult Dr. Alex regarding the increasing Leukocytosis with metamyelocytes and bands. Check a CRP, ESR and a Hgb A1c - the ESR is 96 and the CRP is 32. HGBA1C is 9.9
[2018-09-03 13:50] LABS: Erythrocyte Sedimentation Rate 96 mm/hr (0-20)
[2018-09-03 14:00] LABS: Hemoglobin A1c 9.9 % (4.2-6.3)
--- NOTE | 2018-09-03 14:02 | CASEMGMT ---
Social Work Note RN EMMANUEL Lee updated this worker that pt is interested in SNF now and pt's first choice is [facility] and second choice is [facility]. SW faxed referral to [facility] and placed a call to Kelly at [facility] to provide referral. SW received call from Kelly at [facility] stating she is able to accept pt. Pt is not medically cleared for discharge yet. SALUD updated pt on acceptance to [facility]. Plan: [facility] once medically cleared Kati Martinez MORTGAGE PROTECTION SPECIALIST, RECREATIONAL ASSISTANT
--- NOTE | 2018-09-03 14:14 | NURSING ---
wound photo: left heel
[2018-09-03] MEDS: 0.9% NaCl Peripheral Flush Adult/Peds IV (15:47)
[2018-09-03 15:51] VITALS: BP 117/66; PULSE 76; RESP 18; TEMP 37.1; O2SAT 97
--- NOTE | 2018-09-03 16:44 | PCM.HP.ID ---
Problem List (1) Sepsis due to cellulitis Status: Acute Reason for Consult: cellulitis Consulted by: Dr. Eli History of Present Illness: The patient is a 37 year old F who presented with several days of LLE soreness, swelling, redness, not feeling well. Developed fever, chills, nausea. Came to ED, tmax 101.8. Admitted on vanc, cefazolin. Changed to cefepime, doxy added, then switched to augmentin with doxy. Redness much improved. Dr. Gomez with podiatry debrided heel callus. MRI showed no osteo. Feeling better overall. No n/v/d now. Full ROS performed and neg except as noted above. - Medical History Past Medical History (Chronic Problems): Chronic Problems (Last Reviewed 08/29/18 @ 04:32 by Gen Butt MD) Hydronephrosis (Chronic) Neurogenic bowel (Chronic) Neurogenic bladder (Chronic) Chronic back pain (Chronic) History of migraine (Chronic) Depression (Chronic) Spina bifida aperta of lumbar spine (Chronic) s/p surgery x 2 weakness and numbness in legs neurogenic bladder and frequent UTIs Non-compliance (Chronic) Morbid obesity with BMI of 40.0-44.9, adult (Chronic) Diabetes mellitus, type II (Chronic) Hydronephrosis of right kidney (Chronic) Consult dictated, For now Treat UTI and make sure pt does self cath. Will follow, no need yet for cysto retros etc. But this may change in future 13 Jan Re-admitted consult dictated Allergies/Adverse Reactions: Allergies mushroom Allergy (Verified 08/28/18 17:46) Anaphylaxis peanut Allergy (Verified 08/28/18 17:46) Anaphylaxis Gadolinium-MRI Contrast Medium Adverse Reaction (Verified 08/28/18 17:46) Vomiting Home Medications: Ambulatory Orders Medication Instructions Recorded Metformin(XR) [Glucophage Xr] 1,000 mg PO BID 06/19/16 Atorvastatin Calcium [Lipitor] 10 mg PO QHS 11/07/17 Pseudoephedrine HCl [Sudogest] 30 mg PO Q6H PRN PRN 01/21/18 Pregabalin [Lyrica] 75 mg PO DAILY 02/25/18 Buspirone HCl 15 mg PO BID 04/11/18 Polyethylene Glycol 3350 [Miralax] 17 gm PO DAILY PRN 04/13/18 Liraglutide [Victoza] 1.2 mg SQ DAILY 07/03/18 Duloxetine HCl 60 mg PO DAILY 08/28/18 Furosemide [Lasix] 20 mg PO DAILY@1700 08/28/18 Furosemide [Lasix] 40 mg PO DAILY 08/28/18 Loratadine [Claritin] 10 mg PO DAILY 08/28/18 Propranolol HCl 10 mg PO DAILY 08/28/18 - Social History SMOKING STATUS:: Never smoker Vital Signs Temp Pulse Resp BP Pulse Ox 98.7 F 76 18 117/66 97 09/03/18 15:51 09/03/18 15:51 09/03/18 15:51 09/03/18 15:51 09/03/18 15:51 Oxygen Flow Rate (L/min) 2 Oxygen Delivery Method Room Air Weight: 110.3 kg Body Mass Index (BMI) 44.4 Finger Stick Blood Glucose 187 Microbiology Past 72 Hours 08/31/18 12:30 Gram Stain - Final Ulcer, Decubitus - Leg, Left Wound Culture - Final Streptococcus group C Anaerobic Culture - Preliminary Checking for anaerobes, further studies to follow. 08/28/18 18:40 Blood Culture - Final Blood Culture (Wb) - Left Forearm No growth in 5 days. 08/28/18 Unknown Blood Culture - Final Blood Culture (Wb) - Anticubital Right No growth in 5 days. 08/30/18 07:45 Gram Stain - Final Wound - Heel, Left Wound Culture - Final Staphylococcus aureus Coag Negative Staph Gram positive sue Laboratory Tests Past 24 Hrs 09/02/18 09/03/18 09/03/18 05:15 06:05 13:30 WBC 19.7 H RBC 3.93 L Hgb 11.2 L Hct 35.0 L MCV 89.1 MCH 28.5 MCHC 32.0 RDW 14.1 RDW Differential 46.2 H Plt Count 257 MPV 10.0 Neut % (Auto) Not Reportable Absolute Neuts (auto) 12.2 H Absolute Lymphs (auto) 4.73 H Total Counted 100 Neutrophils % (Manual) 59 Band Neutrophils % 3 Lymphocytes % (Manual) 24 Monocytes % (Manual) 3 Eosinophils % (Manual) 5 Metamyelocytes % 6 H Differential Comment Diff Path Review Reviewed Reviewed Toxic Granulation 1+ Platelet Estimate ADEQUATE RBC Morphology NORM C+C ESR 96 H Hemoglobin A1c C-React Prot Ext Range 09/03/18 09/03/18 13:30 13:30 WBC RBC Hgb Hct MCV MCH MCHC RDW RDW Differential Plt Count MPV Neut % (Auto) Absolute Neuts (auto) Absolute Lymphs (auto) Total Counted Neutrophils % (Manual) Band Neutrophils % Lymphocytes % (Manual) Monocytes % (Manual) Eosinophils % (Manual) Metamyelocytes % Differential Comment Diff Path Review Toxic Granulation Platelet Estimate RBC Morphology ESR Hemoglobin A1c 9.9 H C-React Prot Ext Range 32.90 H - Other Studies Radiology: [] reviewed Other Studies: [] Route of nutrition/ use of supplements: [] Nutritional Intake: [] IV Site: [] Morales Catheter: [] - Physical Exam General: Alert, Oriented x3, Cooperative, No apparent distress HEENT: Atraumatic, PERRLA, EOMI Neck: Supple, No Nodes Lungs: Clear to auscultation, Normal air movement Cardiovascular: Regular rate, Regular Rhythm Abdomen: Soft, Non Tender, Non-Distended Extremities: Edema - mild Skin: Ulcer/ Wound - reviewed photos IV Site: Peripheral Musculoskeletal: No Tenderness to Palpation of Joints or Extremities Neurological: Cranial nerves II-XII grossly intact - Assessment/Plan Antibiotics: [] Assessment/Plan: [] Active and Suspected Problems (Last Reviewed 08/29/18 @ 04:32 by Gen Butt MD) Sepsis due to cellulitis (Acute) LLE cellulitis with heel infection - cx with MSSA, CoNS, GPR. Redness and fever much improved. Wbc remains elevated. I think doxy and augmentin are reasonable choices. Some ongoing leukocytosis may be related debridement and pain. MRI with no osteo. Unable to use linezolid due to buspar and cymbalta. Will follow, thank you.
--- NOTE | 2018-09-03 17:49 | PCM.PN.SRG ---
Patient Problems: Active and Suspected Problems (Last Reviewed 08/29/18 @ 04:32 by Gen Butt MD) Sepsis due to cellulitis (Acute) Subjective: Patient is seen at bedside this afternoon. she denies n/v/f/c. she denies pain in foot. Objective: patient is alert and orientated x 3. patient does not appear in any distress vasclar: DP and PT pulses are palpable to left foot. cft is less than 5 seconds. skin temperature is warm to warm. no erythema is noted to left foot karely: there is superficial ulceration of left heel with mostly granular appearance without purulence, exposed bone or signs of infection. redness resolved to left foot. m/s mild swelling present to left leg. very minimal pain to left calf. doppler negative. - Physical Exam Vital Signs Temp Pulse Resp BP Pulse Ox 98.7 F 76 18 117/66 97 09/03/18 15:51 09/03/18 15:51 09/03/18 15:51 09/03/18 15:51 09/03/18 15:51 Oxygen Flow Rate (L/min) 2 Oxygen Delivery Method Room Air Weight: 110.3 kg Body Mass Index (BMI) 44.4 Finger Stick Blood Glucose 187 Intake and Output for Last 24 Hours 09/01/18 09/02/18 09/03/18 23:59 23:59 23:59 Intake Total 400 / 400 1850 / 1850 900 / 900 Output Total 2 / 2 0 / 0 Balance 398 / 398 1850 / 1850 900 / 900 Microbiology Past 72 Hours 08/31/18 12:30 Gram Stain - Final Ulcer, Decubitus - Leg, Left Wound Culture - Final Streptococcus group C Anaerobic Culture - Preliminary Checking for anaerobes, further studies to follow. 08/28/18 18:40 Blood Culture - Final Blood Culture (Wb) - Left Forearm No growth in 5 days. 08/28/18 Unknown Blood Culture - Final Blood Culture (Wb) - Anticubital Right No growth in 5 days. 08/30/18 07:45 Gram Stain - Final Wound - Heel, Left Wound Culture - Final Staphylococcus aureus Coag Negative Staph Gram positive sue Laboratory Tests Past 24 Hrs 09/02/18 09/03/18 09/03/18 05:15 06:05 13:30 WBC 19.7 H RBC 3.93 L Hgb 11.2 L Hct 35.0 L MCV 89.1 MCH 28.5 MCHC 32.0 RDW 14.1 RDW Differential 46.2 H Plt Count 257 MPV 10.0 Neut % (Auto) Not Reportable Absolute Neuts (auto) 12.2 H Absolute Lymphs (auto) 4.73 H Total Counted 100 Neutrophils % (Manual) 59 Band Neutrophils % 3 Lymphocytes % (Manual) 24 Monocytes % (Manual) 3 Eosinophils % (Manual) 5 Metamyelocytes % 6 H Differential Comment Diff Path Review Reviewed Reviewed Toxic Granulation 1+ Platelet Estimate ADEQUATE RBC Morphology NORM C+C ESR 96 H Hemoglobin A1c C-React Prot Ext Range 09/03/18 09/03/18 13:30 13:30 WBC RBC Hgb Hct MCV MCH MCHC RDW RDW Differential Plt Count MPV Neut % (Auto) Absolute Neuts (auto) Absolute Lymphs (auto) Total Counted Neutrophils % (Manual) Band Neutrophils % Lymphocytes % (Manual) Monocytes % (Manual) Eosinophils % (Manual) Metamyelocytes % Differential Comment Diff Path Review Toxic Granulation Platelet Estimate RBC Morphology ESR Hemoglobin A1c 9.9 H C-React Prot Ext Range 32.90 H POC Glucose 09/03/18 09/03/18 09/02/18 11:02 06:41 21:27 POC Glucose 190 H 114 H 230 H Medical Necessity - Tobacco Use Smoking Status: Never smoker Assessment/Plan All Active Problems (Last Reviewed 08/29/18 @ 04:32 by Gen Butt MD) Sepsis due to cellulitis (Acute) Constipation (Acute) Nausea and vomiting (Acute) UTI (urinary tract infection) (Resolved) Patient was examined and informed of current findings. on exam, the ulceration is mostly granular without exposed bone ,purulence or signs of infection. Today, I had dressing change in presence of hospitalist. there does not appear to be any local signs of infection and mri does not show abscess or osteomyelitis. her wbc is elevating. I would continue with antibiotic and discussed getting ID consult. patient will require santyl and offloading at discharge. She will use surgical shoe and walker or crutches to remain nwb of left heel. at discharge, will likely be placed in cast vs boot. benefits of boot will allow use of santyl daily I expect in future to use some form of skin substitute. patient ok for discharge once medically stable and ID evaluates patient.
[2018-09-03] MEDS: Furosemide 20 MG Tablet PO (18:05)
[2018-09-03 20:06] VITALS: BP 124/71; PULSE 75; RESP 16; TEMP 36.9; O2SAT 99
[2018-09-03 21:55] LABS: Bedside Glucose 186 mg/dL (70-110)
[2018-09-03] MEDS: Atorvastatin Calcium 10 MG Tablet PO (21:56)
[2018-09-03 22:10] LABS: Bedside Glucose 300 mg/dL (70-110)
[2018-09-04 03:32] VITALS: BP 117/71; PULSE 69; RESP 16; TEMP 36.6; O2SAT 100
[2018-09-04 06:46] LABS: Bedside Glucose 131 mg/dL (70-110)
[2018-09-04] MEDS: oxyCODONE 5 MG Tablet PO ×2 (07:28→15:15)
--- NOTE | 2018-09-04 07:53 | PCM.PN.SRG ---
Patient Problems: Active and Suspected Problems (Last Reviewed 08/29/18 @ 04:32 by Gen Butt MD) Sepsis due to cellulitis (Acute) Subjective: Patient is seen this morning with no complaints. patient denies n/v/f/c. patient is tolerating antibiotics without issue. awaiting placement at rehab. Objective: patient is alert and orientated x 3. patient does not appear in any distress. vascular: DP and PT pulses are palpable. CFT is brisk. Skin temperature is warm to warm. no erythema is present to left foot. no calf pain present. Derm: there is ulceration of left heel that measures 6.4 cm x 4.0 cm x 0.1 cm. the ulceration is mostly granular without exposed tendon or bone. there are no local signs of infection. MMT is 5/5 for plantarflexion, dorsiflexion, inversion and eversion. MRI reviewed with no evidence of osteomyelitis, abscess or achilles tendon injury. - Physical Exam Vital Signs Temp Pulse Resp BP Pulse Ox 97.9 F 69 16 117/71 100 09/04/18 03:32 09/04/18 03:32 09/04/18 03:32 09/04/18 03:32 09/04/18 03:32 Oxygen Flow Rate (L/min) 2 Oxygen Delivery Method Room Air Weight: 110.3 kg Body Mass Index (BMI) 44.4 Finger Stick Blood Glucose 187 Intake and Output for Last 24 Hours 09/02/18 09/03/18 09/04/18 23:59 23:59 23:59 Intake Total 1850 / 1850 900 / 900 540 / 540 Output Total 0 / 0 Balance 1850 / 1850 900 / 900 540 / 540 Microbiology Past 72 Hours 08/31/18 12:30 Gram Stain - Final Ulcer, Decubitus - Leg, Left Wound Culture - Final Streptococcus group C Anaerobic Culture - Preliminary Checking for anaerobes, further studies to follow. 08/28/18 18:40 Blood Culture - Final Blood Culture (Wb) - Left Forearm No growth in 5 days. 08/28/18 Unknown Blood Culture - Final Blood Culture (Wb) - Anticubital Right No growth in 5 days. 08/30/18 07:45 Gram Stain - Final Wound - Heel, Left Wound Culture - Final Staphylococcus aureus Coag Negative Staph Gram positive sue Laboratory Tests Past 24 Hrs 09/02/18 09/03/1809/03/19 05:15 06:05 13:30 Diff Path Review Reviewed Reviewed ESR 96 H Hemoglobin A1c C-React Prot Ext Range 09/03/18 09/03/18 13:30 13:30 Diff Path Review ESR Hemoglobin A1c 9.9 H C-React Prot Ext Range 32.90 H POC Glucose 09/04/18 09/03/18 09/03/18 06:30 21:59 15:57 POC Glucose 131 H 300 H 186 H 09/03/18 11:02 POC Glucose 190 H Medical Necessity - Tobacco Use Smoking Status: Never smoker Assessment/Plan All Active Problems (Last Reviewed 08/29/18 @ 04:32 by Gen Butt MD) Sepsis due to cellulitis (Acute) Constipation (Acute) Nausea and vomiting (Acute) UTI (urinary tract infection) (Resolved) patient was examined and informed of current findings. ulceration is stable without signs of infection clinically. continue with santyl to left heel daily. she will have nursing apply santyl daily at senior living. she is to wear offloading boots b/l while in bed. when ambulatory, she will be nwb with boot on left lower extremity. I will have patient f/u in my clinic every week. she is ok for discharge if medically stable. patient informed and understands the longer this ulceration remains present, the increased chances of osteomyelitis and possible amputation. it is very important to remain nwb and very important to attend weekly f/u.
[2018-09-04 08:51] VITALS: BP 93/51; PULSE 67; RESP 16; TEMP 36.6; O2SAT 99
[2018-09-04] MEDS: Loratadine 10 MG Tablet PO (08:55)
[2018-09-04] MEDS: busPIRone 15 MG TABLET PO (08:55)
[2018-09-04] MEDS: DULoxetine Hcl 60 MG Capsule PO (08:55)
[2018-09-04] MEDS: Furosemide 40 MG Tablet PO (08:56)
[2018-09-04] MEDS: Enoxaparin 40 MG/0.4 ML Syringe SC (08:56)
[2018-09-04] MEDS: Senna/Docusate Sodium 1 Tablet PO (08:56)
[2018-09-04] MEDS: Collagenase 30gm Tube 1 APPLIC TOPICAL (08:57)
[2018-09-04] MEDS: Doxycycline 100 MG CAPSULE PO (08:59)
[2018-09-04] MEDS: Pregabalin 75 MG Capsule PO (08:59)
[2018-09-04] MEDS: Amox/Clavulanate 875 MG Tablet PO (08:59)
--- NOTE | 2018-09-04 09:44 | PN.ID_ITS ---
Patient Problems: Active and Suspected Problems (Last Reviewed 08/29/18 @ 04:32 by Gen Butt MD) Sepsis due to cellulitis (Acute) Subjective: Feeling ok, foot sore s/p dressing change. No fever, no n/v/d. - Physical Exam General: Alert, Cooperative, No apparent distress Lungs: Clear to auscultation, Normal air movement Cardiovascular: Regular rate, Regular Rhythm Abdomen: Soft, Non Tender, Non-Distended Skin: Ulcer/ Wound - foot wrapped Vital Signs Temp Pulse Resp BP Pulse Ox 97.9 F 67 16 93/51 L 99 09/04/18 08:51 09/04/18 08:51 09/04/18 08:51 09/04/18 08:51 09/04/18 08:51 Oxygen Flow Rate (L/min) 2 Oxygen Delivery Method Room Air Weight: 110.3 kg Body Mass Index (BMI) 44.4 Finger Stick Blood Glucose 187 Intake and Output for Last 24 Hours 09/02/18 09/03/18 09/04/18 23:59 23:59 23:59 Intake Total 1850 / 1850 900 / 900 540 / 540 Output Total 0 / 0 Balance 1850 / 1850 900 / 900 540 / 540 Microbiology Past 72 Hours 08/31/18 12:30 Gram Stain - Final Ulcer, Decubitus - Leg, Left Wound Culture - Final Streptococcus group C Anaerobic Culture - Preliminary Checking for anaerobes, further studies to follow. 08/28/18 18:40 Blood Culture - Final Blood Culture (Wb) - Left Forearm No growth in 5 days. 08/28/18 Unknown Blood Culture - Final Blood Culture (Wb) - Anticubital Right No growth in 5 days. 08/30/18 07:45 Gram Stain - Final Wound - Heel, Left Wound Culture - Final Staphylococcus aureus Coag Negative Staph Gram positive sue Laboratory Tests Past 24 Hrs 09/02/18 09/03/18 09/03/18 05:15 06:05 13:30 Diff Path Review Reviewed Reviewed ESR 96 H Hemoglobin A1c C-React Prot Ext Range 09/03/18 09/03/18 13:30 13:30 Diff Path Review ESR Hemoglobin A1c 9.9 H C-React Prot Ext Range 32.90 H POC Glucose 09/04/18 09/03/18 09/03/18 06:30 21:59 15:57 POC Glucose 131 H 300 H 186 H 04/08/19 11:02 POC Glucose 190 H Medical Necessity - Tobacco Use Smoking Status: Never smoker Route of nutrition/ use of supplements: [] Nutritional Intake: [] IV Site: [] Morales Catheter: [] - Assessment/Plan Antibiotics: [] Assessment/Plan: [] Active and Suspected Problems (Last Reviewed 08/29/18 @ 04:32 by Gen Butt MD) Sepsis due to cellulitis (Acute) LLE cellulitis with heel infection - cx with MSSA, CoNS, GPR. Redness and fever much resolved. Wbc remains elevated. Some ongoing leukocytosis may be related debridement and pain. MRI with no osteo. Unable to use linezolid due to buspar and cymbalta. Ok for d/c to [facility] on po doxy and augmentin for 5 more days. Will follow, d/w manager of case management
--- NOTE | 2018-09-04 11:22 | CASEMGMT ---
Addendum entered by Kati Martinez 09/04/18 14:26: SALUD faxed completed discharge paperwork to Kelly at [facility] including transfer to extended care facility, signed medication list and any scripts. Original in SNF folder and copy on pt's chart. SALUD completed [facility] in [facility]. Original in SNF folder and copy on pt's chart. SW in to update pt on discharge to [facility] today. Pt states she will need transportation arranged. SALUD placed a call to [facility] and arranged transportation via wheelchair van for 4:40pm. Transportation form on SNF folder and copy on pt's chart. RN, Pt and Kelly at [facility] updated on transportation time. Plan: Pt to discharge to [facility] today skilled with [facility] transporting via wheelchair van at 4:30pm Original Note: Social Work Note Pt doesn't need IV antibiotics at discharge. SALUD spoke with Kelly at [facility], who confirms they are able to accept pt today. Per Physician pt is medically cleared for discharge. Kelly at [facility] updated. Plan: [facility] today Kati Martinez FINGERNAIL SCULPTOR, CASH ROOM CLERK
[2018-09-04 11:50] LABS: Bedside Glucose 175 mg/dL (70-110)
[2018-09-04 12:14] VITALS: BP 105/70; PULSE 72; RESP 18; TEMP 37.2; O2SAT 99
[2018-09-04] MEDS: Insulin Lispro 100 UNIT/ML INSULN.PEN SQ (12:15)
[2018-09-04] MEDS: Propranolol 10 MG Tablet PO (12:15)
[2018-09-04 12:19] LABS: Pathologist Review Reviewed
--- NOTE | 2018-09-04 14:01 | PCM.TXEXTCAR ---
- Diet 08/28/18 22:17 Diet: Calorie Controlled Food consistency:: Regular How many daily calories?: 1800 calorie Supplement: Ty BID until the wound is healed - Routine Orders/Code Status Enema Type: Fleetz Enema Frequency: Daily PRN Suppository Type: Dulcolax 10mg Suppository Frequency: Daily PRN Routine Lab Work: - - CBC with diff and BMP in 1 week - Wound(s) LEFT HEEL Wound Type: Neuropathic/Diabetic Foot Ulcer Dressing Change: SANTYL - Therapies Weight Bearing: Non weight bearing - on the Left leg Extremity Affected:: Left Lower Physical Therapy: Eval and Treat Occupational Therapy: Eval and Treat - Problem/Diagnosis (1) Decubitus ulcer of left heel Status: Acute Current Visit: Yes (2) Sepsis due to cellulitis Status: Acute Current Visit: Yes (3) Constipation Status: Chronic Current Visit: No (4) Chronic back pain Status: Chronic Current Visit: No (5) Depression Status: Chronic Current Visit: No (6) Diabetes mellitus, type II Status: Chronic Comment: not well controlled Current Visit: No (7) History of migraine Status: Chronic Current Visit: No (8) Hydronephrosis of right kidney Status: Chronic Comment: Consult dictated, For now Treat UTI and make sure pt does self cath. Will follow, no need yet for cysto retros etc. But this may change in future 13 Sept Re-admitted consult dictated Current Visit: No (9) Morbid obesity with BMI of 40.0-44.9, adult Status: Chronic Current Visit: No (10) Neurogenic bladder Status: Chronic Current Visit: No (11) Neurogenic bowel Status: Chronic Current Visit: No (12) Non-compliance Status: Chronic Current Visit: No (13) Spina bifida aperta of lumbar spine Status: Chronic Comment: s/p surgery x 2 weakness and numbness in legs neurogenic bladder and frequent UTIs Current Visit: No (14) Normochromic normocytic anemia Status: Acute Comment: HGB normal in Apr 2018 Current Visit: Yes - Allergies/Procedures Done in Hospital Allergies/Adverse Reactions: Allergies mushroom Allergy (Verified 08/28/18 17:46) Anaphylaxis peanut Allergy (Verified 08/28/18 17:46) Anaphylaxis Gadolinium-MRI Contrast Medium Adverse Reaction (Verified 08/28/18 17:46) Vomiting Procedures: None, - - bedside debridement of the left heel by Dr. Gomez - Type of Care/Length of Stay Estimated LOS: Convalescent Care Less Than 30 days Type of Care Needed: Skilled Rehab Potential: Good Prognosis: Good - Additional Orders/Day of Discharge Additional Orders: Will need to follow up with Dr. Gomez in his office every week until the wound is healed. H&P will serve as current which was dated: 08/28/18 Day of Discharge: 09/04/18 - Dietary and Speech Recommendations Dietitian Recommendations/Changes: Rec Ty bid to help w/ skin healing - order through pharmacy - Follow Up Care Primary Care Physician: Will Shukla MD [Primary Care Provider] - Please follow up with your Primary Care Physician in: following DC from SNF Please Follow Up With: Gaurav Gomez DPM When: weekly
--- NOTE | 2018-09-04 14:13 | PCM.DC.SUM ---
Discharge Date and Diagnosis - Problem List Patient Problems: Active and Suspected Problems (Last Reviewed 08/29/18 @ 04:32 by Gen Butt MD) Sepsis due to cellulitis (Acute) Decubitus ulcer of left heel (Acute) Normochromic normocytic anemia (Acute) HGB normal in Apr 2018 Date of Admission: 08/28/18 Date of Discharge: 09/04/18 - Primary Discharge Diagnosis Active and Suspected Problems (Last Reviewed 08/29/18 @ 04:32 by Gen Butt MD) Sepsis due to cellulitis (Acute) Decubitus ulcer of left heel (Acute) Normochromic normocytic anemia (Acute) HGB normal in Apr 2018 - Secondary Discharge Diagnosis Chronic Problems (Last Reviewed 08/29/18 @ 04:32 by Gen Butt MD) Constipation (Chronic) Neurogenic bowel (Chronic) Neurogenic bladder (Chronic) Chronic back pain (Chronic) History of migraine (Chronic) Depression (Chronic) Spina bifida aperta of lumbar spine (Chronic) s/p surgery x 2 weakness and numbness in legs neurogenic bladder and frequent UTIs Non-compliance (Chronic) Morbid obesity with BMI of 40.0-44.9, adult (Chronic) Diabetes mellitus, type II (Chronic) not well controlled Hydronephrosis of right kidney (Chronic) Hospital Course and Treatment Imaging Results: Clinical Impression(s) from Imaging Studies Lower Extremity MRI 08/30/18 09:14 IMPRESSION: No bone edema of the tarsal bones of the hindfoot to indicate osteomyelitis. Edema in the subcutis adipose space without demonstrated soft tissue abscess. Atrophy of the intrinsic muscles of the foot. Electronically Signed: Farhan Rivera MD Microbiology 08/31/18 12:30 Ulcer, Decubitus - Leg, Left Gram Stain - Final 08/31/18 12:30 Ulcer, Decubitus - Leg, Left Wound Culture - Final Streptococcus group C 08/31/18 12:30 Ulcer, Decubitus - Leg, Left Anaerobic Culture - Preliminary Checking for anaerobes, further studies to follow. 08/28/18 18:40 Blood Culture (Wb) - Left Forearm Blood Culture - Final No growth in 5 days. 08/28/18 Unknown Blood Culture (Wb) - Anticubital Right Blood Culture - Final No growth in 5 days. 08/30/18 07:45 Wound - Heel, Left Gram Stain - Final 08/30/18 07:45 Wound - Heel, Left Wound Culture - Final Staphylococcus aureus Coag Negative Staph Gram positive sue at 16:02 EDT Tel , Service support , Foot X-Ray 08/30/18 10:21 IMPRESSION: Diffuse soft tissue swelling. 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 Electronically Signed: Stephan Sood, at 14:23 EDT , Service support , Laboratory Results - last 24 hr 09/01/18 09/03/18 09/03/18 06:45 13:30 15:57 Diff Path Review Reviewed C-React Prot Ext Range 32.90 H POC Glucose 186 H 09/03/18 09/04/18 09/04/18 21:59 06:30 11:47 Diff Path Review C-React Prot Ext Range POC Glucose 300 H 131 H 175 H Consultations 08/29/18 22:40 Consult: Onc/Wound/collar setter overlock Routine Comment: left heel Reason for Consult:: blister to left heel that opened/ discoloration Operations: None Procedures: - - bed side debridement of left heel by Dr. Gomez Summary of Care Provided: The patient is a 37-year-old female with a history of hydronephrosis, neurogenic bowel, neurogenic bladder, chronic back pain, migraine cephalgia, depression, spina bifida, neurogenic bladder, noncompliance, morbid obesity and diabetes mellitus type 2 who presented to the emergency department at [facility] on 08/28/2018 complaining of left leg pain and redness. She had been diagnosed with cellulitis and was on antibiotics. Temp at admission was 99.8 ?F. The white blood cell count was 16.5 with a mild left shift. She was admitted to the hospital with a diagnosis of sepsis secondary to cellulitis. She was started on vancomycin and cefazolin. On physical examination there were blisters of the left heel. On 08/29 vancomycin was discontinued and she was kept on Ancef. On 08/30/2018 Ancef was continued and cefepime was added. On 09/02/2018 she was transitioned to Augmentin and doxycycline. An MRI was obtained which showed no evidence of osteomyelitis and no evidence of abscess. Dr. Gomez was consulted and recommended offloading the left heel. The area was debrided at the bedside and he recommended using Santyl with dressing changes for further debridement. Wound culture was positive for methicillin sensitive staph aureus, a GM + sue that has not been identified and Group C Strep. On 09/02/2018 she had a venous ultrasound of the left lower extremity that showed no evidence of deep vein thrombosis. Despite antibiotics and debridement of the wound the white blood cell count continued to increase and she had a left shift. Dr. Alpesh Alex from infectious disease was consulted and felt since the wound was obviously improving and she was afebrile that the WBC count should not guide the therapy. He recommended discharge on 09/04/2018 with 5 additional days of doxycycline and Augmentin. She should be on Ty twice daily to promote wound healing until the left heel is completely healed. She will follow-up with Dr. Gomez in the office weekly until the wound is healed. She should be nonweightbearing with a boot on the left leg while she is up until the wound is completely healed. Dressing changes should be daily with Santyl. She should wear off loading boots while lying in bed. PHYSICAL EXAM: GENERAL: alert, oriented X 3, Cooperative, NAD ORAL: moist mucosa, no mucosal lesions NECK: No JVD, supple, trachea midline LUNGS: CTA, symmetric chest expansion HEART: RRR, Normal S1 and S2, no rub, no gallop ABDOMEN: soft, NT, ND, obese, BS present, no guarding with palpation EXTREMITIES: no edema, no cyanosis, no calf tenderness, the increased warmth of the left lower extremity is significantly decreased today. The wound continues to improve and there is no purulent discharge, no odor and less edema today. SKIN: No rashes NEUROLOGIC: no focal neurologic deficits PSYCH: appropriate, normal affect, pleasant This note was generated with [employer] software. It may contain incorrect words, spelling, and punctuation that were not noted in checking the note before signing. Patient Problems: Active and Suspected Problems (Last Reviewed 08/29/18 @ 04:32 by Gen Butt MD) Sepsis due to cellulitis (Acute) Decubitus ulcer of left heel (Acute) Normochromic normocytic anemia (Acute) HGB normal in Apr 2018 - Physical Exam Vital Signs Temp Pulse Resp BP Pulse Ox 98.9 F 72 18 105/70 99 09/04/18 12:14 09/04/18 12:14 09/04/18 12:14 09/04/18 12:14 09/04/18 12:14 Oxygen Flow Rate (L/min) 2 Oxygen Delivery Method Room Air Weight: 243 lb 2.718 oz Body Mass Index (BMI) 44.4 Finger Stick Blood Glucose 187 Intake and Output for Last 24 Hours 09/02/18 09/03/18 09/04/18 23:59 23:59 23:59 Intake Total 1850 / 1850 900 / 900 540 / 540 Output Total 0 / 0 Balance 1850 / 1850 900 / 900 540 / 540 Microbiology Past 72 Hours 08/31/18 12:30 Gram Stain - Final Ulcer, Decubitus - Leg, Left Wound Culture - Final Streptococcus group C Anaerobic Culture - Preliminary Checking for anaerobes, further studies to follow. 08/28/18 18:40 Blood Culture - Final Blood Culture (Wb) - Left Forearm No growth in 5 days. 08/28/18 Unknown Blood Culture - Final Blood Culture (Wb) - Anticubital Right No growth in 5 days. 08/30/18 07:45 Gram Stain - Final Wound - Heel, Left Wound Culture - Final Staphylococcus aureus Coag Negative Staph Gram positive sue Laboratory Tests Past 24 Hrs 09/01/18 09/03/18 06:45 13:30 Diff Path Review Reviewed C-React Prot Ext Range 32.90 H POC Glucose 09/04/18 09/04/18 09/03/18 11:47 06:30 21:59 POC Glucose 175 H 131 H 300 H 09/03/18 15:57 POC Glucose 186 H Home Medications: Medications to take at Discharge Metformin(XR) [Glucophage Xr] 1,000 mg PO BID 06/19/16 Atorvastatin Calcium [Lipitor] 10 mg PO QHS 11/07/17 Pseudoephedrine HCl [Sudogest] 30 mg PO Q6H PRN PRN 01/21/18 Pregabalin [Lyrica] 75 mg PO DAILY 02/25/18 Buspirone HCl 15 mg PO BID 04/11/18 Polyethylene Glycol 3350 [Miralax] 17 gm PO DAILY PRN 04/13/18 Liraglutide [Victoza] 1.2 mg SQ DAILY 07/03/18 Duloxetine HCl 60 mg PO DAILY 08/28/18 Furosemide [Lasix] 20 mg PO DAILY@1700 08/28/18 Furosemide [Lasix] 40 mg PO DAILY 08/28/18 Loratadine [Claritin] 10 mg PO DAILY 08/28/18 Propranolol HCl 10 mg PO DAILY 08/28/18 Amox/Clavulanate Tablet [Augmentin Tablet] 875 mg PO BID 5 Days #10 tablet 09/04/18 Collagenase [Santyl] 1 applic TOPICAL DAILY #1 tube 09/04/18 Doxycycline 100 mg PO BID 5 Days #10 capsule 09/04/18 Oxycodone [Oxyir] 5 - 10 mg PO Q4H PRN PRN 7 Days #25 tab 09/04/18 Following Prescrptions Were Given to Patient: Oxycodone [Oxyir] 5 - 10 mg PO Q4H PRN PRN 7 Days #25 tab PRN Reason: Mod-Severe Pain (-03/07) Collagenase [Santyl] 1 applic TOPICAL DAILY #1 tube Primary Care Physician: Will Shukla MD [Primary Care Provider] - Please follow up with your Primary Care Physician in: following DC from SNF Please Follow Up With: Gaurav Gomez DPM When: weekly Disposition: [facility] facility Minutes spent on discharge:: 35 Patient Condition:: Good Medical Necessity - Tobacco Use Smoking Status: Never smoker Tobacco Use: Non-smoker Meaningful Use Info Meaningful Use Diagnoses (Choose all that apply): None applicable Code Visit Inpatient E&M: 76150 Disch Hosp
[2018-09-04 15:11] VITALS: BP 103/62; PULSE 70; RESP 16; TEMP 36.9; O2SAT 100
--- NOTE | 2018-09-04 16:18 | NURSING ---
Report called to [facility].
== END 2018-09-04 17:21 | disposition skilled nursing facility (03) | DRG 854 ==
LOC: ED 19:11 → MS3 21:57
PROVIDERS: Family Medicine; Podiatrist Foot & Ankle Surgery; Admitting Provider Hospitalist; Emergency Provider Emergency Medicine; Family Provider Family Medicine; PCP Family Medicine; Referring Provider Hospitalist; Visit Provider Internal Medicine
DX: A41.9 Sepsis, unspecified organism (principal); Z68.41 Body mass index [BMI] 40.0-44.9, adult; K59.2 Neurogenic bowel, not elsewhere classified; L03.116 Cellulitis of left lower limb; L89.629 Pressure ulcer of left heel, unspecified stage; E66.01 Morbid (severe) obesity due to excess calories; N31.9 Neuromuscular dysfunction of bladder, unspecified; E11.40 Type 2 diabetes mellitus with diabetic neuropathy, unspecified; D64.9 Anemia, unspecified; F32.9 Major depressive disorder, single episode, unspecified; B95.61 Methicillin susceptible Staphylococcus aureus infection as the cause of diseases classified elsewhere; B95.4 Other streptococcus as the cause of diseases classified elsewhere; E78.5 Hyperlipidemia, unspecified; Z79.84 Long term (current) use of oral hypoglycemic drugs; Q05.9 Spina bifida, unspecified; Z87.440 Personal history of urinary (tract) infections
CPT/HCPCS: 36415; 73630; 73718; 80048; 80053; 80202; 81001; 82962; 83036; 83605; 84703; 85025; 85610; 85652; 85730; 86140; 87040; 87070; 87075; 87077; 87186; 87205; 87640; 88304; 88311; 93005; 93923; 93971; 97162; 99284; J7030; J7040; A4216; J2405

== ENCOUNTER 2018-09-20 08:58 | Outpatient (RCR) | payer MEDICARE, MEDICAID, SELFPAY ==
[2018-08-28 22:17] VITALS: BMI 44.4
[2018-09-20 09:24] VITALS: BP 136/70; PULSE 87; RESP 16; TEMP 36.3; BMI 42.2
--- NOTE | 2018-09-20 12:45 | HP.PCM_ITS ---
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 Status: Acute Current Visit: Yes Code(s): E11.621 - Type 2 diabetes mellitus with foot ulcer; L97.422 - Non-pressure chronic ulcer of left heel and midfoot with fat layer exposed (2) Type 2 diabetes mellitus with diabetic polyneuropathy Status: Acute Current Visit: Yes Code(s): E11.42 - Type 2 diabetes mellitus with diabetic polyneuropathy (3) Delayed wound healing Status: Acute Current Visit: Yes Code(s): T14.8XXD - Other injury of unspecified body region, subsequent encounter (4) Lower extremity edema Status: Acute Current Visit: Yes Code(s): R60.0 - Localized edema History of Present Illness Date of Service: 09/20/18 Chief Complaint: left heel ulcer History of Wound: This 37-year-old diabetic female was consulted to the wound healing center for left heel ulcer. Patient is not sure exactly how long the ulcer has been present. She does relate that earlier this August she was hospitalized and they saw a black eschar to the patient's heel. This was debrided by Dr. Gomez while she was in inpatient and she had been following up with him in office. He sent the patient to the wound healing center in hopes of the possibility of placement of advanced wound care product. She has finished her antibiotics that she was discharged on from the hospital. She denies noticing any signs of local infection since she was discharged. She is currently staying at [facility]. She has been keeping the area dressed daily with Santyl dressing changes. She also relates that she has been keeping all pressure off of her left heel. Past Medical History Past Medical History: Chronic Problems (Last Reviewed 08/29/18 @ 04:32 by Gen Butt MD) Constipation (Chronic) Neurogenic bowel (Chronic) Neurogenic bladder (Chronic) Chronic back pain (Chronic) History of migraine (Chronic) Depression (Chronic) 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 Will follow, no need yet for cysto retros etc. But this may change in future Jan Re-admitted consult dictated Surgical History: cholecystectomy, - - D&C, lumbar back surgery x2, foot surgery x2, abdominal stoma, ventral hernia repair. Allergies/Adverse Reactions: Allergies mushroom Allergy (Verified 08/28/18 17:46) Anaphylaxis peanut Allergy (Verified 08/28/18 17:46) Anaphylaxis Gadolinium-MRI Contrast Medium Adverse Reaction (Verified 08/28/18 17:46) Vomiting Home Medications: Ambulatory Orders Medication Instructions Recorded Metformin(XR) [Glucophage Xr] 1,000 mg PO BID 06/19/16 Atorvastatin Calcium [Lipitor] 10 mg PO QHS 11/07/17 Pseudoephedrine HCl [Sudogest] 30 mg PO Q6H PRN PRN 01/21/18 Pregabalin [Lyrica] 75 mg PO DAILY 02/25/18 Buspirone HCl 15 mg PO BID 04/11/18 Polyethylene Glycol 3350 [Miralax] 17 gm PO DAILY PRN 04/13/18 Liraglutide [Victoza] 1.2 mg SQ DAILY 07/03/18 Duloxetine HCl 60 mg PO DAILY 08/28/18 Furosemide [Lasix] 20 mg PO DAILY@1700 08/28/18 Furosemide [Lasix] 40 mg PO DAILY 08/28/18 Loratadine [Claritin] 10 mg PO DAILY 08/28/18 Propranolol HCl 10 mg PO DAILY 08/28/18 Collagenase [Santyl] 1 applic TOPICAL DAILY #1 tube 09/04/18 Acetaminophen 650 mg RECTAL Q4H PRN PRN 09/20/18 Argin/Glut/Cahmb/Collag/Mv-Min 1 packet BC BID 09/20/18 [Ty Packet] Oxycodone [Oxyir] 5 mg BC Q6H PRN PRN 09/20/18 - Family History Maternal Family History: Family History (Last Reviewed 08/29/18 @ 04:33 by Gen Butt MD) Mother CVA (cerebral vascular accident) Thyroid disorder Diabetes Hypertension Cancer, Diabetes, Hypertension, Stroke Paternal Family History: Family History (Last Reviewed 08/29/18 @ 04:33 by Gen Butt MD) Mother CVA (cerebral vascular accident) Thyroid disorder Diabetes Hypertension No pertinent history Sibling Family History: Family History (Last Reviewed 08/29/18 @ 04:33 by Gen Butt MD) Mother CVA (cerebral vascular accident) Thyroid disorder Diabetes Hypertension No pertinent history Smoking Status: Never smoker Review of Systems Constitutional: Denies: Chills, Fever, Weight Change Respiratory: Denies: Cough, Shortness of Breath Gastrointestinal: Denies: Diarrhea, Nausea, Vomiting Skin: Reports: - - Ulcer to left heel Neurological: Reports: - - Diabetic neuropathy - Physical Exam Vital Signs Temp Pulse Resp BP 97.3 F L 87 16 136/70 H 09/20/18 09:24 09/20/18 09:24 09/20/18 09:24 09/20/18 09:24 General: Alert, Oriented x3, Cooperative, No apparent distress Extremities: No cyanosis, Capillary Refill Less than 3 Seconds - To all distal digits, No Calf Tenderness - Negative Angella and Pinto signs bilateral, Edema - Slight lower extremity edema, Peripheral Pulses Normal Skin: Ulcer/ Wound - Ulcer to left heel with fat layer exposed. Measurements are noted below. The ulcer base is noted to be a mixture of adherent slough, fibrin, biofilm, granular tissue as well as some slight surrounding hyperkeratotic tissue. There is no purulence, no malodor, no surrounding or extending cellulitis, no increase in warmth, no probing to bone, no tracking, no undermining currently noted. Wound Measurements and Assessment WC - Nurse 1 - General Ulcer Measurement Start: 09/20/18 09:11 Freq: Status: Active Protocol: Activity Type Activity Date Activity User E-Sign Co-Sign Detail Recorded Client Recorded Date Recorded By Document 09/20/18 09:24 [facility] [id number] 09/20/18 09:39 [facility] 09/20/18 09:24 Wound Center Nurse 1 [Ulcer Assessment] #3- LT HEEL -Combined with other wound No -Current Size (cm) - Length 2.9 -Current Size (cm) - Width 5.1 -Current Size (cm) - Depth 0.2 -Total Square Cm 14.79 -Date of Last Picture (Recall this 09/20/18 field) -Photo Taken Yes -Epithelialization None Present -Tunneling No -Undermining/Tunneling No -Circular Undermining No -Exudate Amt Medium -Exudate Type Serosanguineous -Wound Margin Distinct, Outline Attached -Granulation Amt Large (67-100%) -Granulation Quality Red -Slough/Fibrin Yes -Necrosis Amt Small (1-33%) -Necrotic Tissue Type Adherent Slough -Texture (Joan-wound Skin Appearance) Assessed Callus Scarring -Moisture (Joan-wound Skin Appearance Assessed ) Dry/Scaly -Color (Joan-wound Skin Appearance) Assessed Erythema -Temperature (Joan-wound Skin No Abnormality Appearance) (Pt Warm) -Tenderness on Palpation (Joan-wound No Skin Appearance) -Ulcer Cleansing Wound Cleanser -Foul Odor after Cleansing No -Anesthetic Used 5% Lidocaine Gel [Edema Assessment] -Lower Limb Edema Present Yes -Right Calf (cm) 50.7 -Right Ankle (cm) 28 -Left Calf (cm) 50.5 -Left Ankle (cm) 28 IVY - Nurse 2 - General Ulcer CM Notes Start: 09/20/18 09:11 Freq: Status: Active Protocol: Activity Type Activity Date Activity User E-Sign Co-Sign Detail Recorded Client Recorded Date Recorded By Document 09/20/18 09:39 DV [id number] 09/20/18 10:09 DV 09/20/18 09:39 Wound Center Nurse 2 [Procedure/Treatment] #3- LT HEEL -Time 10:04 -Correct Patient Yes -Correct Side, Site, Position Yes -Correct Procedure Yes -Procedure Performed Yes -Type of Procedure Debridement -Clinical Debridement Subcutaneous -Post Debridement Size (cm) - Length 3.8 -Post Debridement Size (cm) - Width 4.0 -Post Debridement Size (cm) - Depth 0.2 -Total Square Cm 15.20 -Wound/Ulcer Outcome Not Healed -Ulcer Cleansing Rinsed/ Irrigated with Saline -Foul Odor after Cleansing No -Bioengineered Tissue No -Bleeding Controlled with Pressure -Offloading Yes -Type of Offloading Camwalker -Treatment Response Procedure Tolerated Well [See Physician Procedure note for Specifics] Pain Scale: 0-10 Numeric [Pain] -Is Patient Pain Free? Yes Musculoskeletal: No Tenderness to Palpation of Joints or Extremities Neurological: - - Epicritic sensation grossly absent to the bilateral lower extremities Psych/Mental Status: Normal Affect, Appropriate Debridement Note Post-Debridement Measurements/Treatment IVY - Nurse 2 - General Ulcer CM Notes Start: 09/20/18 09:11 Freq: Status: Active Protocol: Activity Type Activity Date Activity User E-Sign Co-Sign Detail Recorded Client Recorded Date Recorded By Document 09/20/18 09:39 DV [id number] 09/20/18 10:09 DV 09/20/18 09:39 Wound Center Nurse 2 #3- LT HEEL -Time 10:04 -Correct Patient Yes -Correct Side, Site, Position Yes -Correct Procedure Yes -Procedure Performed Yes -Type of Procedure Debridement -Clinical Debridement Subcutaneous -Post Debridement Size (cm) - Length 3.8 -Post Debridement Size (cm) - Width 4.0 -Post Debridement Size (cm) - Depth 0.2 -Total Square Cm 15.20 -Wound/Ulcer Outcome Not Healed -Ulcer Cleansing Rinsed/ Irrigated with Saline -Foul Odor after Cleansing No -Bioengineered Tissue No -Bleeding Controlled with Pressure -Offloading Yes -Type of Offloading Camwalker -Treatment Response Procedure Tolerated Well Pain Scale: 0-10 Numeric Is Patient Pain Free? Yes Wound debrided: Left heel Laterality: Left Wound Grade/Stage: 2 Type of Debridement: Excisional debridement Anesthesia Used: 4% Lidocaine Solution Depth: in the subcutaneous layer Percentage of wound debrided: 100 Instrument Used: #15 blade Tissue Removed: Adherent slough, fibrin, biofilm, hyperkeratotic tissue Severity: Fat Layer Exposed Amount of bleeding with debridement: Mild Bleeding Controlled with: Pressure Patient tolerated procedure well Assessment/Plan Active Problems (Last Reviewed 08/29/18 @ 04:32 by Gen Butt MD) Diabetic ulcer of left heel with fat layer exposed (Acute) Type 2 diabetes mellitus with diabetic polyneuropathy (Acute) Delayed wound healing (Acute) Lower extremity edema (Acute) Assessment: Diabetic ulcer left heel. DM 2 with neuropathy. Other comorbidities Plan: Initial patient examination and evaluation was performed in detail today. An excisional subcutaneous debridement was performed as noted in the clinical panel. Once complete, the site was dressed with Aquacel Ag followed by dry everardo rile dressing and Tubigrip for compression. The patient is to have the dressing changed in this manner daily. The patient was instructed to keep the left heel offloaded at all times while seated or laying down. She is to keep the heel floated completely with nothing under it except air. Patient is to be nonweightbearing to the left heel. The patient just recently finished a course of oral antibiotics, and the site does not appear clinically infected today sewn no new wound cultures or antibiotics were prescribed today. Patient had vascular studies performed at her most recent stay in the hospital and these were carefully reviewed prior to patient's visit today. I also recommend a diet high in protein to help optimize ulcer healing potential. The patient was educated on all signs and symptoms of local and systemic infection, and she was instructed to go to the emergency room immediately should she notice any of these. All other questions were answered to the patient's satisfaction today. The patient will follow back up in clinic in 1 week to check on progress, or sooner if needed before then.
== END 2018-09-25 23:59 ==
LOC: WC 08:58
PROVIDERS: Family Provider Family Medicine; PCP Family Medicine; Visit Provider Podiatrist
DX: E11.621 Type 2 diabetes mellitus with foot ulcer (principal); E11.42 Type 2 diabetes mellitus with diabetic polyneuropathy; L97.422 Non-pressure chronic ulcer of left heel and midfoot with fat layer exposed; R60.0 Localized edema; E66.01 Morbid (severe) obesity due to excess calories; Z68.41 Body mass index [BMI] 40.0-44.9, adult; Z71.3 Dietary counseling and surveillance; Z91.19 Patient's noncompliance with other medical treatment and regimen; N31.9 Neuromuscular dysfunction of bladder, unspecified; Q05.9 Spina bifida, unspecified
CPT/HCPCS: 11042; 99213; G0463

== ENCOUNTER 2018-10-23 06:16 | Observation (INO) | payer MEDICARE, MEDICAID, SELFPAY ==
[2018-10-18 09:36] VITALS: BMI 42.2
[2018-10-23] VITALS (10 sets, daily range): BP systolic 115–128; BP diastolic 66–97; PULSE 62–89; RESP 16–18; TEMP 36.1–37; O2SAT 94–99; BMI 43.9; BMI 41.8; BMI 41.9
--- NOTE | 2018-10-23 06:27 | EKG12_ITS ---
Test Reason : CP Blood Pressure : / mmHG Vent. Rate : 082 BPM Atrial Rate : 082 BPM P-R Int : 136 ms QRS Dur : 078 ms QT Int : 396 ms P-R-T Axes : 024 026 034 degrees QTc Int : 462 ms Poor data quality, interpretation may be adversely affected Normal sinus rhythm Normal ECG Confirmed by XAVIER PAULSON ([id number]), editor magazine WILBUR FARRAR ([id number]) on 10/25/2018 8:43:46 AM Referred By: RADHA Confirmed By:XAVIER PAULSON
--- NOTE | 2018-10-23 06:27 | RAD_ITS ---
STUDY: X-RAY CHEST REASON FOR EXAM: Female, 37 years old. Nausea and vomiting. TECHNIQUE: Frontal and lateral views of the chest.. COMPARISON: 07/03/2018. 12/16/2017. FINDINGS: The lungs are underexpanded. There is no demonstrated acute pulmonary infiltrate. There is a calcification along the right upper lung field on frontal view, which is seen on lateral view, overlying the skin of the patient's back. There is no demonstrated pleural abnormality. Normal size heart. Normal mediastinum and cristiano. Normal visualized pulmonary arteries. Normal visualized aortic arch and descending thoracic aorta. Normal visualized thoracic spine. Normal visualized ribs, clavicles, and shoulders. There is no demonstrated abnormality of the visualized soft tissue structures of the upper abdomen. RAD/Chest PA and Lateral IMPRESSION: No evidence for acute cardiopulmonary pathology. Electronically Signed: Delgado Mora MD at 7:29 EDT , Service support ,
--- NOTE | 2018-10-23 06:29 | ED.DCSUM_ITS ---
- ER Visit Summary Date of Service: 10/23/18 Chief Complaint: Chest pain History of Present Illness: The patient is a 37 F who presents with chest pain. She describes it as throbbing. It began suddenly about 2 hours ago. It is located in the center upper chest. She also complains of feeling short of lorraine ath lightheaded and dizzy. She complains of nausea and vomiting. She also states her left arm and hand went numb. She does have a history of prior similar symptoms. She is currently at a nursing facility related to a left foot infection/wound. No history of coronary artery disease. No history of DVT or pulmonary embolism. Physical Examination: Afebrile vitals normal Moist mucous membranes Heart regular rate and rhythm Lungs are clear Abdomen soft Extremities nontender symmetric palpable radial pulses Alert Test Results: EKG shows normal sinus rhythm at a rate of 82. Chest x-ray on my review shows no acute process. Labs are notable for white blood cell count 16.2. Troponin negative. CTA of the chest is pending at the time of this dictation. Emergency Department Course and Treatment: Patient was given aspirin by EMS. I also gave IV morphine and Zofran. At the time of this dictation a CTA of the chest is pending given her recent hospitalizations. Even if this is normal patient likely needs a rule out given her history of diabetes, hypertension, hyperlipidemia. Patient signed out to the oncoming physician to follow-up on CTA of the chest. Treatment Plan: [] Disposition: Admit Impression: Chest pain This note was generated with [employer] dictation software. It may contain incorrect words, spelling, and punctuation that were not noted in review of the chart prior to signing ED Disposition - Plan for ED Patient: Referrals: Will Shukla MD [Primary Care Provider] -
[2018-10-23] MEDS: Ondansetron 4 MG/2 ML Vial IV (06:34)
[2018-10-23] MEDS: Morphine 4 MG/ML Syringe IV (06:34)
[2018-10-23 06:38] LABS: Absolute Lymphocyte Count 3.55 X10^3/ul (0.83-4.51); Absolute Neutrophil Count 10.4 X10^3/uL (2.0-7.7); Basophil# 0.06 X10^3/uL; Basophil% 0.4 % (0-1); Eosinophil# 0.64 X10^3/uL; Hematocrit 38.8 % (37-47); Lymphocyte # 3.55 X10^3/ul (4.0); Mean Corp Hgb Conc 33.5 g/gl (32-36); Mean Corpuscular Volume 86.6 fL (81-99); Mean Platelet Vol. 9.9 fl (6.2-12.0); Monocyte# 1.37 X10^3/uL; Monocyte% 8.5 % (0-10); Neutrophil # 10.39 X10^3/uL (2.7-7.7); Neutrophil % 64.1 % (47-70); Platelet Count 258 K/mm3 (150-450); RBC Distribution Width CV 13.5 % (11.6-14.6); RBC Distribution Width SD 42.9 fl (35.1-43.9); Red Blood Count 4.48 M/mm3 (4.2-5.4); White Blood Count 16.2 K/mm3 (4.4-11.0)
[2018-10-23 06:44] LABS: POSITIVE COUNT NO; POSITIVE DIFFERENTIAL NO; POSITIVE MORPHOLOGY NO
[2018-10-23 06:53] LABS: Anion Gap 8 (5-15); BUN 8 mg/dL (7-18); BUN/Creat Ratio 7.6 RATIO (10-20); Calcium,Total 9.2 mg/dL (8.5-10.1); Chloride 105 mmol/L (98-107); Creatinine, Serum 1.05 mg/dL (0.55-1.02); EST Glomerular Filtration Rate 63 mL/min (>60); Est Glom Filt Rate - Afr Amer 76 mL/min (>60); Estimated Creatinine Clearance 58.58 ml/min; Glucose 161 mg/dL (74-106); Potassium 3.9 mmol/L (3.5-5.1); Sodium Level 138 mmol/L (136-145)
--- NOTE | 2018-10-23 07:07 | CT_ITS ---
STUDY: CTA CHEST REASON FOR EXAM: Female, 37 years old. Chest pain. RADIATION DOSAGE (If Supplied By Facility): CTDIvol = ( 12.76 ) mGy, DLP = ( 427.71 ) mGycm TECHNIQUE: The examination was performed with the intravenous administration of 100 IV Isovue 300. Post-processing of the angiographic images was performed, with multiplanar reformation and 3D reconstruction. Individualized dose optimization techniques were used for this CT. COMPARISON: Comparison is made with prior study dated March 20, 2018. FINDINGS: Normal enhancement of the main pulmonary artery and right and left pulmonary arteries. Normal enhancement of the bilateral peripheral pulmonary arteries. There is no demonstrated pulmonary embolism. Normal thoracic aorta and visualized great vessels. There is no demonstrated aortic dissection. Normal heart and pericardium. Normal mediastinum. Normal hilar regions. Normal visualized trachea and bronchi. The lungs are well expanded. Normal pulmonary parenchyma. Normal pleura. Normal chest wall structures. Normal osseous structures. There is a 8mm by 1.7 cm calcification in the subcutaneous tissues along the posterior aspect of the upper thorax. Diffuse fatty infiltration of the liver. CT/CTA Chest W/WO Contrast IMPRESSION: Normal CTA chest examination, without a demonstrated pulmonary embolism or arterial dissection. Electronically Signed: Stephan Sood, at 8:13 EDT , Service support ,
--- NOTE | 2018-10-23 08:54 | EKG12_ITS ---
Test Reason : CP ADMISSION Blood Pressure : / mmHG Vent. Rate : 064 BPM Atrial Rate : 064 BPM P-R Int : 160 ms QRS Dur : 090 ms QT Int : 422 ms P-R-T Axes : 009 016 025 degrees QTc Int : 435 ms Normal sinus rhythm Normal ECG When compared with ECG of 28-AUG-2018 18:36, Vent. rate has decreased BY 31 BPM Confirmed by YARIEL FITZGERALD, ANUM ([id number]), script editor LASHA HAY ([id number]) on 10/29/2018 2:58:54 PM Referred By: JACIK Confirmed By:ANUM SALDIVAR MD
[2018-10-23 09:41] LABS: Bedside Glucose 153 mg/dL (70-110)
[2018-10-23] MEDS: Enoxaparin 40 MG/0.4 ML Syringe SC (11:39)
[2018-10-23] MEDS: 0.9% Normal Saline 1,000 ML 75 ML IV (11:39)
[2018-10-23] MEDS: Insulin Lispro 100 UNIT/ML INSULN.PEN SQ ×2 (11:50→21:48)
--- NOTE | 2018-10-23 11:55 | PCM.HP.STD ---
Problem List (1) Chest pain Status: Acute (2) Decubitus ulcer of left heel Status: Acute (3) Normochromic normocytic anemia Status: Acute Comment: HGB normal in Apr 2018 (4) Diabetic ulcer of left heel with fat layer exposed Status: Acute (5) Type 2 diabetes mellitus with diabetic polyneuropathy Status: Acute (6) Lower extremity edema Status: Acute (7) Neurogenic bowel Status: Chronic (8) Neurogenic bladder Status: Chronic (9) Morbid obesity with BMI of 40.0-44.9, adult Status: Chronic (10) Diabetes mellitus, type II Status: Chronic Comment: not well controlled History of Present Illness Date of Admission: 10/23/18 Chief Complaint: Chest pain The patient is a 37 year old F with a PMH as below who presents with a few hour episode of chest pain. She states that she was in bed this morning when she had chest pain over the center of her chest that went down her left arm. She states that she became very nauseated and started shaking and threw up multiple times. She states that then the pain subsided a little bit when she came to the ER. She is never had chest pain like this before and had a stress test about a year ago which was normal. She also states that she was recently diagnosed with a UTI and was started on antibiotics which explains her leukocytosis in the ER of 16.2. She is afebrile and has no other signs or symptoms of infection. Her left heel she states has been healing pretty well at the halfway and she has been getting wound care. In the ER initial troponin was negative and a CTA of her chest for PE was also negative. EKG was unremarkable and nonischemic. Past Medical History Past Medical History (Chronic Problems): Chronic Problems (Last Reviewed 08/29/18 @ 04:32 by Gen Butt MD) Constipation (Chronic) Neurogenic bowel (Chronic) Neurogenic bladder (Chronic) Chronic back pain (Chronic) History of migraine (Chronic) Depression (Chronic) 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 Will follow, no need yet for cysto retros etc. But this may change in future Jan Re-admitted consult dictated Medical History: Medical History (Last Reviewed 08/29/18 @ 04:32 by Gen Butt MD) Neurogenic bowel (Chronic) K59.2 Neurogenic bladder (Chronic) N31.9 Chronic back pain (Chronic) M54.9, G89.29 History of migraine (Chronic) Z86.69 Depression (Chronic) F32.9 Spina bifida aperta of lumbar spine (Chronic) Q05.7 s/p surgery x 2 weakness and numbness in legs neurogenic bladder and frequent UTIs Non-compliance (Chronic) Z91.19 Morbid obesity with BMI of 40.0-44.9, adult (Chronic) E66.01, Z68.41 Diabetes mellitus, type II (Chronic) E11.9 not well controlled Hydronephrosis of right kidney (Chronic) N13.30 Consult dictated, For now Treat UTI and make sure pt does self cath. Will follow, no need yet for cysto retros etc. But this may change in future Jan Re-admitted consult dictated UTI (urinary tract infection) (Resolved) N39.0 Allergies mushroom Allergy (Verified 10/23/18 06:20) Anaphylaxis peanut Allergy (Verified 10/23/18 06:20) Anaphylaxis Gadolinium-MRI Contrast Medium Adverse Reaction (Verified 10/23/18 06:20) Vomiting Home Medications: Ambulatory Orders Medication Instructions Recorded Metformin(XR) [Glucophage Xr] 1,000 mg PO BID 06/19/16 Atorvastatin Calcium [Lipitor] 10 mg PO QHS 11/07/17 Pseudoephedrine HCl [Sudogest] 30 mg PO Q6H PRN PRN 01/21/18 Pregabalin [Lyrica] 75 mg PO DAILY 02/25/18 Buspirone HCl 15 mg PO BID 04/11/18 Polyethylene Glycol 3350 [Miralax] 17 gm PO DAILY PRN 04/13/18 Liraglutide [Victoza] 1.2 mg SQ DAILY 07/03/18 Duloxetine HCl 60 mg PO DAILY 08/28/18 Furosemide [Lasix] 20 mg PO DAILY@1700 08/28/18 Furosemide [Lasix] 40 mg PO DAILY 08/28/18 Loratadine [Claritin] 10 mg PO DAILY 08/28/18 Propranolol HCl 10 mg PO DAILY 08/28/18 Collagenase [Santyl] 1 applic TOPICAL DAILY #1 tube 09/04/18 Acetaminophen 650 mg RECTAL Q4H PRN PRN 09/20/18 Oxycodone [Oxyir] 5 - 10 mg PO Q6H PRN PRN 09/20/18 Acetaminophen 650 mg PO Q4H PRN PRN 10/23/18 Ciprofloxacin [Cipro] 500 mg PO BID 10/23/18 Guaifenesin [Adult Tussin Chest 10 ml PO Q4H PRN PRN 10/23/18 Congestion] Mag Hydrox/Aluminum Hyd/Simeth 360 ml PO Q4H PRN PRN 10/23/18 [Antacid Suspension] Oxybutynin [Ditropan] 15 mg PO DAILY 10/23/18 Surgical History: Surgical History (Last Reviewed 08/29/18 @ 04:32 by Gen Butt MD) History of cholecystectomy Z90.49 History of dilation and curettage Z98.890 History of spinal surgery Z98.890 Hx of foot surgery Z98.890 Hx of ventral hernia repair Z98.890, Z87.19 Status post gastric surgery Z98.890 Surgical History: cholecystectomy, - - D&C, lumbar back surgery x2, foot surgery x2, abdominal stoma, ventral hernia repair. Smoking Status: Never smoker - *Family History Maternal Family History: Family History (Last Reviewed 08/29/18 @ 04:33 by Gen Butt MD) Mother CVA (cerebral vascular accident) Thyroid disorder Diabetes Hypertension History Items: Cancer, Diabetes, Hypertension, Stroke Paternal Family History: Family History (Last Reviewed 08/29/18 @ 04:33 by Gen Butt MD) Mother CVA (cerebral vascular accident) Thyroid disorder Diabetes Hypertension History Items: No pertinent history Sibling Family History: Family History (Last Reviewed 08/29/18 @ 04:33 by Gen Butt MD) Mother CVA (cerebral vascular accident) Thyroid disorder Diabetes Hypertension History Items: No pertinent history Review of Systems Constitutional: Denies: Chills, Fever, Weight Change HEENT: Denies: Head Aches, Sinus Congestion, Sinus Drainage Cardiovascular: Reports: Chest Pain. Denies: Palpitations Respiratory: Denies: Cough, Shortness of breath at rest, Sputum production Gastrointestinal: Denies: Abdominal Pain, Nausea, Vomiting Genitourinary: Denies: Dysuria Musculoskeletal: Denies: Joint Pain, Joint Tenderness Skin: Denies: Rash, Wounds Neurological: Denies: Numbness, Tingling, Focal weakness Psychiatric: Denies: Anxiety, Depression Hematologic/ Lymphatic: Denies: Easy Bruising, Easy Bleeding VTE Information - Inpt Only VTE Present on Admission: No Patient Problems: Active and Suspected Problems (Last Reviewed 08/29/18 @ 04:32 by Gen Butt MD) Chest pain (Acute) - Physical Exam General: Alert, Oriented x3, Cooperative, No apparent distress HEENT: Atraumatic, PERRLA, EOMI, Normocephalic Oral: Moist Mucosa Neck: Supple, No JVD Lungs: Clear to auscultation, Normal air movement, No rhonchi, No wheeze, No rales, Diminished Cardiovascular: Regular rate, Regular Rhythm, Normal S1, Normal S2, No murmurs Abdomen: Soft, Non Tender, Non-Distended, No Hepato-splenomegaly, Obese Extremities: Capillary Refill Less than 3 Seconds, Edema - Bilateral lower extremity edema nonpitting Skin: Ulcer/ Wound - Healing nicely dressing intact Neurological: Neuro grossly intact, Sensory exam intact to light touch and pain Psych/Mental Status: Normal Affect, Appropriate Vital Signs Temp Pulse Resp BP Pulse Ox 98.1 F 71 18 115/74 98 10/23/18 09:00 10/23/18 09:00 10/23/18 09:00 10/23/18 09:00 10/23/18 09:00 Oxygen Delivery Method Room Air Weight: 228 lb 13.437 oz Body Mass Index (BMI) 41.8 Finger Stick Blood Glucose 187 Laboratory Tests Past 24 Hrs 10/23/18 10/23/18 10/23/18 06:20 06:20 09:17 WBC 16.2 H RBC 4.48 Hgb 13.0 Hct 38.8 MCV 86.6 MCH 29.0 MCHC 33.5 RDW 13.5 RDW Differential 42.9 Plt Count 258 MPV 9.9 Immature Gran % (Auto) 1.000 H Neut % (Auto) 64.1 Lymph % (Auto) 22.0 [place] % (Auto) 8.5 Eos % (Auto) 4.0 Baso % (Auto) 0.4 Absolute Neuts (auto) 10.4 H Absolute Lymphs (auto) 3.55 Total Counted Not Reportable Sodium 138 Potassium 3.9 Chloride 105 Carbon Dioxide 25.0 Anion Gap 8 BUN 8 Creatinine 1.05 H Estim Creat Clear Calc 58.58 Est GFR (MDRD) Af Amer 76 Est GFR (MDRD) Non-Af 63 BUN/Creatinine Ratio 7.6 L Glucose 161 H Calcium 9.2 Troponin I < 0.015 < 0.015 POC Glucose 10/23/18 09:34 POC Glucose 153 H Assessment/Plan All Active Problems (Last Reviewed 08/29/18 @ 04:32 by Gen Butt MD) Sepsis due to cellulitis (Acute) Decubitus ulcer of left heel (Acute) Normochromic normocytic anemia (Acute) Diabetic ulcer of left heel with fat layer exposed (Acute) Type 2 diabetes mellitus with diabetic polyneuropathy (Acute) Delayed wound healing (Acute) Lower extremity edema (Acute) Chest pain (Acute) UTI (urinary tract infection) (Resolved) 1. Chest pain -She is had 2 troponins now that have been negative -Received with a stress test tomorrow morning if that is normal she can be discharged back to the halfway -We will monitor on telemetry -EKG is unremarkable 2. Left heel ulcer secondary to diabetes/bilateral lower extremity edema/UTI -Her leukocytosis is likely reactive to her UTI as well as her chronic left heel wound -She is on Cipro in the halfway which we will continue here -We will consult wound care to evaluate left heel continue with management in the hospital -Continue with her Lasix for her edema 3. HLD/DM 2 with neuropathy -We will continue with her home Lipitor -We will hold her metformin and Victoza and put her on a long-acting insulin and a sliding scale insulin -Continue with Lyrica 4. Anxiety/depression -Can continue with her home BuSpar and Cymbalta -Stable 5. Spina bifida -She has chronic neurogenic bladder, neurogenic colon -We will continue with her home medications while here in the hospital DVT: Lovenox Code Visit OBSV E&M: 24271 Initial observation care L3
[2018-10-23 12:10] LABS: Bedside Glucose 215 mg/dL (70-110)
--- NOTE | 2018-10-23 12:12 | NURSING ---
wound photo: left lateral heel
[2018-10-23] MEDS: Ciprofloxacin 500 MG Tablet PO ×2 (14:54→21:46)
[2018-10-23] MEDS: DULoxetine Hcl 60 MG Capsule PO (14:55)
[2018-10-23] MEDS: Propranolol 10 MG Tablet PO (14:55)
[2018-10-23] MEDS: busPIRone 15 MG TABLET PO ×2 (14:55→21:46)
[2018-10-23] MEDS: Tolterodine Tartrate 4 MG CAP.SA PO (14:55)
[2018-10-23] MEDS: Furosemide 20 MG Tablet PO (16:08)
[2018-10-23 16:25] LABS: Bedside Glucose 121 mg/dL (70-110)
[2018-10-23] MEDS: Atorvastatin Calcium 10 MG Tablet PO (21:46)
[2018-10-23 22:20] LABS: Bedside Glucose 150 mg/dL (70-110)
[2018-10-24] VITALS (7 sets, daily range): BP systolic 101–142; BP diastolic 59–67; PULSE 64–82; RESP 16–18; TEMP 36.7–36.8; O2SAT 94–98
[2018-10-24] MEDS: 0.9% Normal Saline 1,000 ML 75 ML IV (00:04)
[2018-10-24] MEDS: oxyCODONE 5 MG Tablet PO (00:05)
--- NOTE | 2018-10-24 05:55 | EKG12_ITS ---
Test Reason : AM EKG Blood Pressure : / mmHG Vent. Rate : 066 BPM Atrial Rate : 066 BPM P-R Int : 164 ms QRS Dur : 080 ms QT Int : 440 ms P-R-T Axes : 014 027 033 degrees QTc Int : 461 ms Normal sinus rhythm Normal ECG When compared with ECG of 23-OCT-2018 08:54, MANUAL COMPARISON REQUIRED, DATA IS UNCONFIRMED Confirmed by YARIEL FITZGERALD, ANUM ([id number]), desk editor LASHA HAY ([id number]) on 10/29/2018 2:33:52 PM Referred By: AIDEN Confirmed By:ANUM SALDIVAR MD
[2018-10-24 06:16] LABS: Bedside Glucose 124 mg/dL (70-110)
[2018-10-24 06:21] LABS: Absolute Neutrophil Count 7.1 X10^3/uL (2.0-7.7); Basophil# 0.06 X10^3/uL; Basophil% 0.5 % (0-1); Eosinophil# 0.64 X10^3/uL; Eosinophils% 5.3 % (0-5); Hemoglobin 11.8 g/dl (12.0-15.0); Lymphocyte % 26.3 % (19-41); Mean Corp Hgb Conc 32.8 g/gl (32-36); Mean Corpuscular Hgb 28.9 pg (27.0-32.0); Mean Platelet Vol. 9.8 fl (6.2-12.0); Monocyte# 1.03 X10^3/uL; Monocyte% 8.5 % (0-10); Neutrophil # 7.14 X10^3/uL (2.7-7.7); Neutrophil % 58.5 % (47-70); Platelet Count 228 K/mm3 (150-450); RBC Distribution Width CV 13.6 % (11.6-14.6); RBC Distribution Width SD 43.9 fl (35.1-43.9); Red Blood Count 4.09 M/mm3 (4.2-5.4); White Blood Count 12.2 K/mm3 (4.4-11.0)
[2018-10-24 06:33] LABS: POSITIVE COUNT NO; POSITIVE DIFFERENTIAL NO; POSITIVE MORPHOLOGY NO
[2018-10-24 06:44] LABS: Anion Gap 8 (5-15); BUN 10 mg/dL (7-18); BUN/Creat Ratio 11.4 RATIO (10-20); Calcium,Total 8.7 mg/dL (8.5-10.1); Chloride 107 mmol/L (98-107); Creatinine, Serum 0.88 mg/dL (0.55-1.02); EST Glomerular Filtration Rate 77 mL/min (>60); Est Glom Filt Rate - Afr Amer 93 mL/min (>60); Glucose 115 mg/dL (74-106); Potassium 3.8 mmol/L (3.5-5.1); Sodium Level 142 mmol/L (136-145)
[2018-10-24] MEDS: DULoxetine Hcl 60 MG Capsule PO (09:10)
[2018-10-24] MEDS: busPIRone 15 MG TABLET PO (09:10)
[2018-10-24] MEDS: Ciprofloxacin 500 MG Tablet PO (09:10)
[2018-10-24] MEDS: Tolterodine Tartrate 4 MG CAP.SA PO (09:11)
[2018-10-24] MEDS: Propranolol 10 MG Tablet PO (09:11)
[2018-10-24] MEDS: Pregabalin 75 MG Capsule PO (09:14)
[2018-10-24 09:20] LABS: International Normalized Ratio 1.1; Prothrombin Time (Protime)PT. 13.6 SECONDS (11.7-14.9)
[2018-10-24 09:23] LABS: Partial Thromboplast Time 32.9 Seconds (24.1-36.2)
--- NOTE | 2018-10-24 11:12 | CASEMGMT ---
Addendum entered by Blessing Eller 10/24/18 15:08: Still awaiting test results. However, the plan is to discharge patient back to [facility] today. SW spoke with patient and asked if she had any family that could transport her back to [facility] as we are not able to arrange transport due to lack of availability. She said she would be able to get a ride. Blessing RITCHIE Original Note: Patient is from [facility]. SALUD spoke with patient and confirmed her plan is to return to [facility] when ready. She will need transportation and she can go by wheelchair van. Blessing SANFORD MSW
[2018-10-24 11:56] LABS: Bedside Glucose 128 mg/dL (70-110)
[2018-10-24] MEDS: Furosemide 20 MG Tablet 40 MG PO (15:08)
--- NOTE | 2018-10-24 15:17 | STRESSREP_ITS ---
Stress Test Report Date: October 24, 2018 Procedure: Pharmacologic stress nuclear imaging study Indications: Chest pain Consent: Per the patient Procedure: The patient underwent pharmacologic (Regadenoson) evaluation with a peak heart rate of 109 beats per minute (59 %predicted maximal heart rate) and a peak blood pressure of 108/70 mmHg. The baseline ECG demonstrated sinus rhythm with no significant ST-T changes. EKG during lexiscan infusion revealed no change from baseline. EKG post infusion revealed no change from baseline [There were no cardiac dysrhythmias pretest, during pharmacologic infusion, or recovery]. [There was no complaint of chest discomfort during pharmacologic infusion or recovery]. The examination was discontinued secondary to completion of protocol. Impression: 1. Lexiscan stress test test is negative for Lexiscan infusion induced EKG changes of ischemia. 2. Lexiscan stress test test negative for Lexiscan infusion induced chest pain. 3. Results of the nuclear portion of the test is as below Myocardial perfusion imaging study: Technique: The patient was injected with 14.8 millicuries of technetium 99m Cardiolite and subsequently rest SPECT Cardiolite nuclear imaging was obtained in the horizontal long, vertical long, and short axis views. The patient underwent pharmacologic (Regadenoson) evaluation with a peak heart rate of 109 beats per minute (59 % percent predicted maximal heart rate) and a peak blood pressure of 108/70 mmHg. The patient was injected with 44.3 millicuries of technetium 99m Cardiolite and subsequently stress SPECT Cardiolite nuclear imaging was obtained in the horizontal long, vertical long, and short axis views. A gated Cardiolite study at peak stress was obtained. Interpretation: Rest and stress SPECT Cardiolite nuclear imaging status post realignment, normalization, and attenuation correction demonstrate normal myocardial radioisotope uptake overall. There is extracardiac uptake adjacent to the inferior wall which does interfere with the test to some extent however there is no definite evidence of significant ischemia or infarction. Gated images reveal no significant regional wall motion abnormalities. The reported LVEF is greater than 70 %. Impression: 1. There is no evidence of significant ischemia or infarction 2. Estimated ejection fraction is greater than 70% This note was generated with [employer] software. It may contain incorrect words, spelling, and punctuation that were not noted in checking the note before signing.
--- NOTE | 2018-10-24 15:38 | TREXTCAR_ITS ---
- Diet 10/24/18 14:04 Diet: Cardiac: Calorie-Controlled Is pt able to select menu?: Yes How many daily calories?: 1200 calorie - Routine Orders/Code Status Code Status: Full Code - Wound(s) L heel Wound Type: Neuropathic/Diabetic Foot Ulcer Dressing Change: Promogran - Therapies Physical Therapy: Eval and Treat Occupational Therapy: Eval and Treat Speech Therapy: Eval and Treat - Problem/Diagnosis (1) Chest pain Status: Acute Current Visit: Yes (2) Decubitus ulcer of left heel Status: Acute Current Visit: No (3) Normochromic normocytic anemia Status: Acute Comment: HGB normal in Apr 2018 Current Visit: No (4) Diabetic ulcer of left heel with fat layer exposed Status: Acute Current Visit: No (5) Type 2 diabetes mellitus with diabetic polyneuropathy Status: Acute Current Visit: No (6) Lower extremity edema Status: Acute Current Visit: No (7) Neurogenic bowel Status: Chronic Current Visit: No (8) Neurogenic bladder Status: Chronic Current Visit: No (9) Morbid obesity with BMI of 40.0-44.9, adult Status: Chronic Current Visit: No (10) Diabetes mellitus, type II Status: Chronic Comment: not well controlled Current Visit: No - Allergies/Procedures Done in Hospital Allergies/Adverse Reactions: Allergies mushroom Allergy (Verified 10/23/18 06:20) Anaphylaxis peanut Allergy (Verified 10/23/18 06:20) Anaphylaxis Gadolinium-MRI Contrast Medium Adverse Reaction (Verified 10/23/18 06:20) Vomiting - Type of Care/Length of Stay Estimated LOS: Convalescent Care Less Than 30 days Type of Care Needed: Skilled Rehab Potential: Good Prognosis: Good - Additional Orders/Day of Discharge Day of Discharge: 10/24/18 - Dietary and Speech Recommendations Dietitian Recommendations/Changes: Recommend 1600 calorie controlled diet. Re commend 1 packet Ty BID for wound healing. - Follow Up Care Primary Care Physician: Will Shukla MD [Primary Care Provider] - Please follow up with your Primary Care Physician in: 3-5 days
--- NOTE | 2018-10-24 15:38 | PCM.DC.SUM ---
Discharge Date and Diagnosis - Problem List Patient Problems: Active and Suspected Problems (Last Reviewed 08/29/18 @ 04:32 by Gen Butt MD) Chest pain (Acute) Date of Admission: 10/23/18 Date of Discharge: 10/24/18 - Primary Discharge Diagnosis Active and Suspected Problems (Last Reviewed 08/29/18 @ 04:32 by Gen Butt MD) Chest pain (Acute) - Secondary Discharge Diagnosis Chronic Problems (Last Reviewed 08/29/18 @ 04:32 by Gen Butt MD) Constipation (Chronic) Neurogenic bowel (Chronic) Neurogenic bladder (Chronic) Chronic back pain (Chronic) History of migraine (Chronic) Depression (Chronic) 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 Will follow, no need yet for cysto retros etc. But this may change in future Jan Re-admitted consult dictated Hospital Course and Treatment Imaging Results: CTA Chest: IMPRESSION: Normal CTA chest examination, without a demonstrated pulmonary embolism or arterial dissection Consultations 10/23/18 08:27 Consult: Onc/Wound/organizational psychologist Routine Comment: Reason for Consult:: hole in L heel. seen at wound center. seen by dr Faria Operations: None Procedures: Nuclear stress test - Impression: 1. Lexiscan stress test test is negative for Lexiscan infusion induced EKG changes of ischemia. 2. Lexiscan stress test test negative for Lexiscan infusion induced chest pain. 3. Results of the nuclear portion of the test is as below Interpretation: Rest and stress SPECT Cardiolite nuclear imaging status post realignment, normalization, and attenuation correction demonstrate normal myocardial radioisotope uptake overall. There is extracardiac uptake adjacent to the inferior wall which does interfere with the test to some extent however there is no definite evidence of significant ischemia or infarction. Gated images reveal no significant regional wall motion abnormalities. The reported LVEF is greater than 70 %. Impression: 1. There is no evidence of significant ischemia or infarction 2. Estimated ejection fraction is greater than 70% Summary of Care Provided: Per HPI: The patient is a 37 year old F with a PMH as below who presents with a few hour episode of chest pain. She states that she was in bed this morning when she had chest pain over the center of her chest that went down her left arm. She states that she became very nauseated and started shaking and threw up multiple times. She states that then the pain subsided a little bit when she came to the ER. She is never had chest pain like this before and had a stress test about a year ago which was normal. She also states that she was recently diagnosed with a UTI and was started on antibiotics which explains her leukocytosis in the ER of 16.2. She is afebrile and has no other signs or symptoms of infection. Her left heel she states has been healing pretty well at the senior care and she has been getting wound care. In the ER initial troponin was negative and a CTA of her chest for PE was also negative. EKG was unremarkable and nonischemic. Hospital Course: 1. Chest [id number]-old female who is currently residing in a senior care secondary to a left heel ulcer from diabetes presented with acute onset chest pain. It only been going on for several hours before she came to the ER where she had 3- troponins and a CTA of the chest which was normal. She underwent a stress test on the day of discharge which was also normal. She had no changes in her EKG and her telemetry monitoring was also normal. I discussed with her that her stress test was normal and she was okay with going back to the senior care today. 2. Left heel ulcer secondary to diabetes/bilateral lower extremity edema/UTI-on admission her leukocytosis was elevated to 16, on the day of discharge her leukocytosis was 12.2. She was recently started on Cipro for a UTI at the residential facility which was continued here and she can complete back at the senior care. Her left heel ulcer is healing nicely and will continue with wound care. 3. Her other medical diagnoses were evaluated in her home medications were continued where appropriate. Patient Problems: Active and Suspected Problems (Last Reviewed 08/29/18 @ 04:32 by Gen Butt MD) Chest pain (Acute) Objective: General: Alert, Oriented x3, Cooperative, No apparent distress HEENT: Atraumatic, PERRLA, EOMI, Normocephalic Oral: Moist Mucosa Neck: Supple, No JVD Lungs: Clear to auscultation, Normal air movement, No rhonchi, No wheeze, No rales, Diminished Cardiovascular: Regular rate, Regular Rhythm, Normal S1, Normal S2, No murmurs Abdomen: Soft, Non Tender, Non-Distended, No Hepato-splenomegaly, Obese Extremities: Capillary Refill Less than 3 Seconds, Edema - Bilateral lower extremity edema nonpitting Skin: Ulcer/ Wound - Healing nicely dressing intact Neurological: Neuro grossly intact, Sensory exam intact to light touch and pain Psych/Mental Status: Normal Affect, Appropriate - Physical Exam Vital Signs Temp Pulse Resp BP Pulse Ox 98.1 F 64 16 101/63 98 10/24/18 15:05 10/24/18 15:05 10/24/18 15:05 10/24/18 15:05 10/24/18 15:05 Oxygen Delivery Method Room Air Weight: 228 lb 13.437 oz Body Mass Index (BMI) 41.8 Finger Stick Blood Glucose 187 Intake and Output for Last 24 Hours 10/22/18 10/23/18 10/24/18 23:59 23:59 23:59 Intake Total 2181 / 2181 776 / 776 Output Total 1100 / 1100 1140 / 1140 Balance 1081 / 1081 -364 / -364 Laboratory Tests Past 24 Hrs 10/24/18 10/24/18 10/24/18 06:05 06:05 08:36 WBC 12.2 H RBC 4.09 L Hgb 11.8 L Hct 36.0 L MCV 88.0 MCH 28.9 MCHC 32.8 RDW 13.6 RDW Differential 43.9 Plt Count 228 MPV 9.8 Immature Gran % (Auto) 0.900 Neut % (Auto) 58.5 Lymph % (Auto) 26.3 [place] % (Auto) 8.5 Eos % (Auto) 5.3 H Baso % (Auto) 0.5 Absolute Neuts (auto) 7.1 Absolute Lymphs (auto) 3.20 Total Counted Not Reportable PT 13.6 INR 1.1 APTT 32.9 Sodium 142 Potassium 3.8 Chloride 107 Carbon Dioxide 27.0 Anion Gap 8 BUN 10 Creatinine 0.88 Estim Creat Clear Calc 69.90 Est GFR (MDRD) Af Amer 93 Est GFR (MDRD) Non-Af 77 BUN/Creatinine Ratio 11.4 Glucose 115 H Calcium 8.7 POC Glucose 10/24/18 10/24/18 10/23/18 11:51 06:08 21:45 POC Glucose 128 H 124 H 150 H 10/23/18 16:08 POC Glucose 121 H Home Medications: Medications to take at Discharge metFORMIN (XR) [Glucophage Xr] 1,000 mg PO BID 06/19/16 Atorvastatin Calcium [Lipitor] 10 mg PO QHS 11/07/17 Pseudoephedrine HCl [Sudogest] 30 mg PO Q6H PRN PRN 01/21/18 Pregabalin [Lyrica] 75 mg PO DAILY 02/25/18 Buspirone HCl 15 mg PO BID 04/11/18 Polyethylene Glycol 3350 [Miralax] 17 gm PO DAILY PRN 04/13/18 Liraglutide [Victoza] 1.2 mg SQ DAILY 07/03/18 Duloxetine HCl 60 mg PO DAILY 08/28/18 Furosemide [Lasix] 20 mg PO DAILY@1700 08/28/18 Furosemide [Lasix] 40 mg PO DAILY 08/28/18 Loratadine [Claritin] 10 mg PO DAILY 08/28/18 Propranolol HCl 10 mg PO DAILY 08/28/18 Collagenase [Santyl] 1 applic TOPICAL DAILY #1 tube 09/04/18 Acetaminophen 650 mg RECTAL Q4H PRN PRN 09/20/18 Oxycodone [Oxyir] 5 - 10 mg PO Q6H PRN PRN 09/20/18 Acetaminophen 650 mg PO Q4H PRN PRN 10/23/18 Ciprofloxacin [Cipro] 500 mg PO BID 10/23/18 Guaifenesin [Adult Tussin Chest Congestion] 10 ml PO Q4H PRN PRN 10/23/18 Mag Hydrox/Aluminum Hyd/Simeth [Antacid Suspension] 360 ml PO Q4H PRN PRN 10/23/18 Oxybutynin [Ditropan] 15 mg PO DAILY 10/23/18 Primary Care Physician: Will Shukla MD [Primary Care Provider] - Please follow up with your Primary Care Physician in: 3-5 days Disposition: [facility] facility Minutes spent on discharge:: 35 Patient Condition:: Stable Medical Necessity - Tobacco Use Smoking Status: Never smoker Meaningful Use Info Meaningful Use Diagnoses (Choose all that apply): None applicable Code Visit OBSV E&M: 07056 Observation care discharge
--- NOTE | 2018-10-24 15:43 | DS.PCM_ITS ---
Discharge Date and Diagnosis - Problem List Patient Problems: Active and Suspected Problems (Last Reviewed 08/29/18 @ 04:32 by Gen Butt MD) Chest pain (Acute) Date of Admission: 10/23/18 Date of Discharge: 10/24/18 - Primary Discharge Diagnosis Active and Suspected Problems (Last Reviewed 08/29/18 @ 04:32 by Gen Butt MD) Chest pain (Acute) - Secondary Discharge Diagnosis Chronic Problems (Last Reviewed 08/29/18 @ 04:32 by Gen Butt MD) Constipation (Chronic) Neurogenic bowel (Chronic) Neurogenic bladder (Chronic) Chronic back pain (Chronic) History of migraine (Chronic) Depression (Chronic) 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 Will follow, no need yet for cysto retros etc. But this may change in future Jan Re-admitted consult dictated Hospital Course and Treatment Imaging Results: CTA Chest: IMPRESSION: Normal CTA chest examination, without a demonstrated pulmonary embolism or arterial dissection Consultations 10/23/18 08:27 Consult: Onc/Wound/environmental educator Routine Comment: Reason for Consult:: hole in L heel. seen at wound center. seen by dr Faria Operations: None Procedures: Nuclear stress test - Impression: 1. Lexiscan stress test test is negative for Lexiscan infusion induced EKG changes of ischemia. 2. Lexiscan st ress test test negative for Lexiscan infusion induced chest pain. 3. Results of the nuclear portion of the test is as below Interpretation: Rest and stress SPECT Cardiolite nuclear imaging status post realignment, normalization, and attenuation correction demonstrate normal myocardial radioisotope uptake overall. There is extracardiac uptake adjacent to the inferior wall which does interfere with the test to some extent however there is no definite evidence of significant ischemia or infarction. Gated images reveal no significant regional wall motion abnormalities. The reported LVEF is greater than 70 %. Impression: 1. There is no evidence of significant ischemia or infarction 2. Estimated ejection fraction is greater than 70% Summary of Care Provided: Per HPI: The patient is a 37 year old F with a PMH as below who presents with a few hour episode of chest pain. She states that she was in bed this morning when she had chest pain over the center of her chest that went down her left arm. She states that she became very nauseated and started shaking and threw up multiple times. She states that then the pain subsided a little bit when she came to the ER. She is never had chest pain like this before and had a stress test about a year ago which was normal. She also states that she was recently diagnosed with a UTI and was started on antibiotics which explains her leukocytosis in the ER of 16.2. She is afebrile and has no other signs or symptoms of infection. Her left heel she states has been healing pretty well at the [facility] and she has been getting wound care. In the ER initial troponin was negative and a CTA of her chest for PE was also negative. EKG was unremarkable and nonischemic. Hospital Course: 1. Chest [id number]-old female who is currently residing in a [facility] secondary to a left heel ulcer from diabetes presented with acute onset chest pain. It only been going on for several hours before she came to the ER where she had 3- troponins and a CTA of the chest which was normal. She underwent a stress test on the day of discharge which was also normal. She had no changes in her EKG and her telemetry monitoring was also normal. I discussed with her that her stress test was normal and she was okay with going back to the [facility] today. 2. Left heel ulcer secondary to diabetes/bilateral lower extremity edema/UTI-on admission her leukocytosis was elevated to 16, on the day of discharge her leukocytosis was 12.2. She was recently started on Cipro for a UTI at the senior care facility which was continued here and she can complete back at the [facility]. Her left heel ulcer is healing nicely and will continue with wound care. 3. Her other medical diagnoses were evaluated in her home medications were continued where appropriate. Patient Problems: Active and Suspected Problems (Last Reviewed 08/29/18 @ 04:32 by Gen Butt MD) Chest pain (Acute) Objective: General: Alert, Oriented x3, Cooperative, No apparent distress HEENT: Atraumatic, PERRLA, EOMI, Normocephalic Oral: Moist Mucosa Neck: Supple, No JVD Lungs: Clear to auscultation, Normal air movement, No rhonchi, No wheeze, No rales, Diminished Cardiovascular: Regular rate, Regular Rhythm, Normal S1, Normal S2, No murmurs Abdomen: Soft, Non Tender, Non-Distended, No Hepato-splenomegaly, Obese Extremities: Capillary Refill Less than 3 Seconds, Edema - Bilateral lower extremity edema nonpitting Skin: Ulcer/ Wound - Healing nicely dressing intact Neurological: Neuro grossly intact, Sensory exam intact to light touch and pain Psych/Mental Status: Normal Affect, Appropriate - Physical Exam Vital Signs Temp Pulse Resp BP Pulse Ox 98.1 F 64 16 101/63 98 10/24/18 15:05 10/24/18 15:05 10/24/18 15:05 10/24/18 15:05 10/24/18 15:05 Oxygen Delivery Method Room Air Weight: 228 lb 13.437 oz Body Mass Index (BMI) 41.8 Finger Stick Blood Glucose 187 Intake and Output for Last 24 Hours 10/22/18 10/23/18 10/24/18 23:59 23:59 23:59 Intake Total 2181 / 2181 776 / 776 Output Total 1100 / 1100 1140 / 1140 Balance 1081 / 1081 -364 / -364 Laboratory Tests Past 24 Hrs 10/24/18 10/24/18 10/24/18 06:05 06:05 08:36 WBC 12.2 H RBC 4.09 L Hgb 11.8 L Hct 36.0 L MCV 88.0 MCH 28.9 MCHC 32.8 RDW 13.6 RDW Differential 43.9 Plt Count 228 MPV 9.8 Immature Gran % (Auto) 0.900 Neut % (Auto) 58.5 Lymph % (Auto) 26.3 Labette % (Auto) 8.5 Eos % (Auto) 5.3 H Baso % (Auto) 0.5 Absolute Neuts (auto) 7.1 Absolute Lymphs (auto) 3.20 Total Counted Not Reportable PT 13.6 INR 1.1 APTT 32.9 Sodium 142 Potassium 3.8 Chloride 107 Carbon Dioxide 27.0 Anion Gap 8 BUN 10 Creatinine 0.88 Estim Creat Clear Calc 69.90 Est GFR (MDRD) Af Amer 93 Est GFR (MDRD) Non-Af 77 BUN/Creatinine Ratio 11.4 Glucose 115 H Calcium 8.7 POC Glucose 10/24/18 10/24/18 10/23/18 11:51 06:08 21:45 POC Glucose 128 H 124 H 150 H 10/23/18 16:08 POC Glucose 121 H Home Medications: Medications to take at Discharge metFORMIN (XR) [Glucophage Xr] 1,000 mg PO BID 06/19/16 Atorvastatin Calcium [Lipitor] 10 mg PO QHS 11/07/17 Pseudoephedrine HCl [Sudogest] 30 mg PO Q6H PRN PRN 01/21/18 Pregabalin [Lyrica] 75 mg PO DAILY 02/25/18 Buspirone HCl 15 mg PO BID 04/11/18 Polyethylene Glycol 3350 [Miralax] 17 gm PO DAILY PRN 04/13/18 Liraglutide [Victoza] 1.2 mg SQ DAILY 07/03/18 Duloxetine HCl 60 mg PO DAILY 08/28/18 Furosemide [Lasix] 20 mg PO DAILY@1700 08/28/18 Furosemide [Lasix] 40 mg PO DAILY 08/28/18 Loratadine [Claritin] 10 mg PO DAILY 08/28/18 Propranolol HCl 10 mg PO DAILY 08/28/18 Collagenase [Santyl] 1 applic TOPICAL DAILY #1 tube 09/04/18 Acetaminophen 650 mg RECTAL Q4H PRN PRN 09/20/18 Oxycodone [Oxyir] 5 - 10 mg PO Q6H PRN PRN 09/20/18 Acetaminophen 650 mg PO Q4H PRN PRN 10/23/18 Ciprofloxacin [Cipro] 500 mg PO BID 10/23/18 Guaifenesin [Adult Tussin Chest Congestion] 10 ml PO Q4H PRN PRN 10/23/18 Mag Hydrox/Aluminum Hyd/Simeth [Antacid Suspension] 360 ml PO Q4H PRN PRN 10/23/18 Oxybutynin [Ditropan] 15 mg PO DAILY 10/23/18 Primary Care Physician: Will Shukla MD [Primary Care Provider] - Please follow up with your Primary Care Physician in: 3-5 days Disposition: Jail facility Minutes spent on discharge:: 35 Patient Condition:: Stable Medical Necessity - Tobacco Use Smoking Status: Never smoker Meaningful Use Info Meaningful Use Diagnoses (Choose all that apply): None applicable Code Visit OBSV E&M: 60639 Observation care discharge
--- NOTE | 2018-10-24 16:15 | NURSING ---
report called to Hilda JUNIOR at [facility]
== END 2018-10-24 11:47 | disposition skilled nursing facility (03) ==
LOC: ED 06:48 → PCU 07:33
PROVIDERS: Admitting Provider Family Medicine; Emergency Provider Emergency Medicine; Family Provider Family Medicine; PCP Family Medicine; Visit Provider Family Medicine
DX: R07.89 Other chest pain (principal); R42 Dizziness and giddiness; R11.2 Nausea with vomiting, unspecified; I10 Essential (primary) hypertension; E78.5 Hyperlipidemia, unspecified; E11.42 Type 2 diabetes mellitus with diabetic polyneuropathy; N31.9 Neuromuscular dysfunction of bladder, unspecified; E66.01 Morbid (severe) obesity due to excess calories; Z68.41 Body mass index [BMI] 40.0-44.9, adult; Z71.3 Dietary counseling and surveillance; K59.2 Neurogenic bowel, not elsewhere classified; Z91.19 Patient's noncompliance with other medical treatment and regimen; Z79.84 Long term (current) use of oral hypoglycemic drugs; Z79.899 Other long term (current) drug therapy; Q05.7 Lumbar spina bifida without hydrocephalus; G89.29 Other chronic pain; E11.621 Type 2 diabetes mellitus with foot ulcer; F32.9 Major depressive disorder, single episode, unspecified; F41.9 Anxiety disorder, unspecified; L97.422 Non-pressure chronic ulcer of left heel and midfoot with fat layer exposed
CPT/HCPCS: 36415; 71046; 71275; 78452; 80048; 82962; 84484; 85025; 85610; 85730; 93005; 93017; 96361; 96372; 96374; 96375; 97802; 99218; 99285; A9500; J7030; Q9967; A4216; G0378; J2405; J2785

== ENCOUNTER 2018-10-25 10:00 | Outpatient (RCR) | payer MEDICARE, MEDICAID, SELFPAY ==
[2018-09-26 01:53] VITALS: BP 136/70; PULSE 87; RESP 16; TEMP 36.3
[2018-09-27 09:01] VITALS: BP 115/68; PULSE 80; RESP 18; TEMP 36.2; BMI 42.2
--- NOTE | 2018-09-27 12:05 | PN.PCM_ITS ---
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 Patient is not sure exactly how long the ulcer has been present. She does relate that earlier this August she was hospitalized and they saw a black eschar to the patient's heel. This was debrided by Dr. Gomez while she was in inpatient and she had been following up with him in office. He sent the patient to the wound healing center in hopes of the possibility of placement of advanced wound care product. She has finished her antibiotics that she was discharged on from the hospital. She denies noticing any signs of local infection since she was discharged. She is currently staying at [facility]. She has been keeping the area dressed daily with Santyl dressing changes. She also relates that she has been keeping all pressure off of her left heel. Progress of Wound: Ulcer stable this week. Patient continues to deny any signs of local infection. She says she has been trying to keep pressure off of heel at all times. She does state that the nursing staff at her shelter are not always following the dressing orders and dressing change frequency. - Physical Exam Vital Signs Temp Pulse Resp BP 97.2 F L 80 18 115/68 09/27/18 09:01 09/27/18 09:01 09/27/18 09:09/27/18 09:01 General: Alert, Oriented x3, Cooperative, No apparent distress Extremities: No cyanosis, Capillary Refill Less than 3 Seconds - To all distal digits, No Calf Tenderness - Negative Angella and Pinto signs bilateral, Edema - Slight lower extremity edema, Peripheral Pulses Normal Skin: Ulcer/ Wound - Ulcer to left heel with fat layer exposed. Measurements are noted below. The ulcer base is a mixture of adherent slough, fibrin, biofilm, granular tissue as well as some slight surrounding hyperkeratotic tissue. There is no purulence, no malodor, no surrounding or extending cellulitis, no increase in warmth, no probing to bone, no tracking, no undermining currently noted. Wound Measurements and Assessment WC - Nurse 1 - General Ulcer Measurement Start: 09/27/18 09:01 Freq: Status: Active Protocol: Activity Type Activity Date Activity User E-Sign Co-Sign Detail Recorded Client Recorded Date Recorded By Document 09/27/18 09:01 DL [id number] 09/27/18 09:13 DL 09/27/18 09:01 Wound Center Nurse 1 [Ulcer Assessment] #3- LT HEEL -Current Size (cm) - Length 2.8 -Current Size (cm) - Width 5.2 -Current Size (cm) - Depth 0.1 -Total Square Cm 14.56 -Photo Taken No -Exudate Amt Small -Exudate Type Serosanguineous -Wound Margin Distinct, Outline Attached -Granulation Amt Medium (34-66%) -Granulation Quality Red -Necrosis Amt Medium (34-66%) -Necrotic Tissue Type Adherent Slough -Structure Exposed N/A -Texture (Joan-wound Skin Appearance) Scarring -Moisture (Joan-wound Skin Appearance Dry/Scaly ) -Color (Joan-wound Skin Appearance) No Abnormality -Temperature (Joan-wound Skin No Abnormality Appearance) (Pt Warm) -Tenderness on Palpation (Joan-wound No Skin Appearance) -Ulcer Cleansing Wound Cleanser -Foul Odor after Cleansing No -Anesthetic Used 5% Lidocaine Gel [Edema Assessment] -Left Calf (cm) 48.5 -Left Ankle (cm) 26.5 WC - Nurse 2 - General Ulcer CM Notes Start: 09/27/18 09:01 Freq: Status: Active Protocol: Activity Type Activity Date Activity User E-Sign Co-Sign Detail Recorded Client Recorded Date Recorded By Document 09/27/18 09:52 DV [id number] 09/27/18 09:59 DV 09/27/18 09:52 Wound Center Nurse 2 [Procedure/Treatment] #3- LT HEEL -Time 09:52 -Correct Patient Yes -Correct Side, Site, Position Yes -Correct Procedure Yes -Procedure Performed Yes -Type of Procedure Debridement -Clinical Debridement Subcutaneous -Post Debridement Size (cm) - Length 3.8 -Post Debridement Size (cm) - Width 4.0 -Post Debridement Size (cm) - Depth 0.4 -Total Square Cm 15.20 -Wound/Ulcer Outcome Not Healed -Ulcer Cleansing Rinsed/ Irrigated with Saline -Foul Odor after Cleansing No -Bioengineered Tissue No -Bleeding Controlled with Pressure -Offloading No -Treatment Response Procedure Tolerated Well [See Physician Procedure note for Specifics] Pain Scale: 0-10 Numeric [Pain] -Is Patient Pain Free? Yes Musculoskeletal: No Tenderness to Palpation of Joints or Extremities Neurological: - - Epicritic sensation grossly absent to bilateral lower extremities Psych/Mental Status: Normal Affect, Appropriate Debridement Note Post-Debridement Measurements/Treatment WC - Nurse 2 - General Ulcer CM Notes Start: 09/27/18 09:01 Freq: Status: Active Protocol: Activity Type Activity Date Activity User E-Sign Co-Sign Detail Recorded Client Recorded Date Recorded By Document 09/27/18 09:52 DV [id number] 09/27/18 09:59 DV 09/27/18 09:52 Wound Center Nurse 2 #3- LT HEEL -Time 09:52 -Correct Patient Yes -Correct Side, Site, Position Yes -Correct Procedure Yes -Procedure Performed Yes -Type of Procedure Debridement -Clinical Debridement Subcutaneous -Post Debridement Size (cm) - Length 3.8 -Post Debridement Size (cm) - Width 4.0 -Post Debridement Size (cm) - Depth 0.4 -Total Square Cm 15.20 -Wound/Ulcer Outcome Not Healed -Ulcer Cleansing Rinsed/ Irrigated with Saline -Foul Odor after Cleansing No -Bioengineered Tissue No -Bleeding Controlled with Pressure -Offloading No -Treatment Response Procedure Tolerated Well Pain Scale: 0-10 Numeric Is Patient Pain Free? Yes Wound debrided: Left heel Laterality: Left Type of Debridement: Excisional debridement Anesthesia Used: 4% Lidocaine Solution Depth: in the subcutaneous layer Percentage of wound debrided: 100 Instrument Used: #15 blade Tissue Removed: Adherent slough, fibrin, biofilm, hyperkeratotic tissue Severity: Fat Layer Exposed Amount of bleeding with debridement: Mild Bleeding Controlled with: Pressure Patient tolerated procedure well Assessment/Plan Assessment: Diabetic ulcer left heel. DM 2 with neuropathy. Other comorbidities Plan: Patient was carefully examined and evaluated again today. An excisional subcutaneous debridement was performed as noted in the clinical panel. Once complete, the site was dressed with Aquacel Ag followed by dry sterile dressing and Tubigrip for compression. The patient is to have the dressing changed in this manner daily. The patient was instructed to keep the left heel offloaded at all times while seated or laying down. She is to keep the heel floated completely with nothing under it except air. Patient is to be nonweightbearing to the left heel. Patient had vascular studies performed at her most recent stay in the hospital and these were carefully reviewed prior to patient's visit today. I continue to recommend a diet high in protein to help optimize ulcer healing potential. The patient was educated on all signs and symptoms of local and systemic infection, and she was instructed to go to the emergency room immediately should she notice any of these. All other questions were answered to the patient's satisfaction today. The patient will follow back up in clinic in 1 week to check on progress, or sooner if needed before then.
[2018-10-04 10:15] VITALS: BP 117/66; PULSE 78; RESP 18; TEMP 36.6; BMI 42.2
--- NOTE | 2018-10-04 14:07 | PCM.WC.PN ---
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 Patient is not sure exactly how long the ulcer has been present. She does relate that earlier this August she was hospitalized and they saw a black eschar to the patient's heel. This was debrided by Dr. Gomez while she was in inpatient and she had been following up with him in office. He sent the patient to the wound healing center in hopes of the possibility of placement of advanced wound care product. She has finished her antibiotics that she was discharged on from the hospital. She denies noticing any signs of local infection since she was discharged. She is currently staying at [facility], [place]. She has been keeping the area dressed daily with Santyl dressing changes. She also relates that she has been keeping all pressure off of her left heel. Progress of Wound: Ulcer stable this week again. Patient continues to deny any signs of local infection. She says she has been trying to keep pressure off of heel at all times. Denies any signs of infection to area. - Physical Exam Vital Signs Temp Pulse Resp BP 97.8 F 78 18 117/66 10/04/18 10:15 10/04/18 10:15 10/04/18 10:15 10/04/18 10:15 General: Alert, Oriented x3, Cooperative, No apparent distress Extremities: No cyanosis, Capillary Refill Less than 3 Seconds - To all distal digits, No Calf Tenderness - Negative Angella and Pinto signs bilateral, Edema - Slight lower extremity edema, Peripheral Pulses Normal Skin: Ulcer/ Wound - Ulcer to left heel with fat layer exposed. Measurements are noted below. The ulcer base is a mixture of adherent slough, fibrin, biofilm, granular tissue as well as some slight surrounding hyperkeratotic tissue. There is no purulence, no malodor, no surrounding or extending cellulitis, no increase in warmth, no probing to bone, no tracking, no undermining currently noted. Wound Measurements and Assessment WC - Nurse 1 - General Ulcer Measurement Start: 09/27/18 09:01 Freq: Status: Active Protocol: Activity Type Activity Date Activity User E-Sign Co-Sign Detail Recorded Client Recorded Date Recorded By Document 10/04/18 10:15 RB [id number] 10/04/18 10:18 RB 10/04/18 10:15 Wound Center Nurse 1 [Ulcer Assessment] #3- LT HEEL -Combined with other wound No -Current Size (cm) - Length 2 -Current Size (cm) - Width 4.4 -Current Size (cm) - Depth 0.2 -Total Square Cm 8.8 -Tunneling No -Undermining/Tunneling No -Circular Undermining No -Exudate Amt Small -Exudate Type Serosanguineous -Wound Margin Thickened -Granulation Amt Large (67-100%) -Granulation Quality [place] -Slough/Fibrin Yes -Necrosis Amt Small (1-33%) -Necrotic Tissue Type Adherent Slough -Structure Exposed N/A -Texture (Joan-wound Skin Appearance) Callus -Moisture (Joan-wound Skin Appearance Assessed ) -Color (Joan-wound Skin Appearance) Assessed -Temperature (Joan-wound Skin No Abnormality Appearance) (Pt Warm) -Tenderness on Palpation (Joan-wound No Skin Appearance) -Ulcer Cleansing Wound Cleanser -Foul Odor after Cleansing No -Anesthetic Used 5% Lidocaine Gel [Edema Assessment] -Lower Limb Edema Present Yes -Left Calf (cm) 51.5 -Left Ankle (cm) 27 WC - Nurse 2 - General Ulcer CM Notes Start: 09/27/18 09:01 Freq: Status: Active Protocol: Activity Type Activity Date Activity User E-Sign Co-Sign Detail Recorded Client Recorded Date Recorded By Document 10/04/18 10:51 AN [id number] 10/04/18 10:57 AN 10/04/18 10:51 Wound Center Nurse 2 [Procedure/Treatment] #3- LT HEEL -Time 10:52 -Correct Patient Yes -Correct Side, Site, Position Yes -Correct Procedure Yes -Procedure Performed Yes -Type of Procedure Debridement -Clinical Debridement Subcutaneous -Post Debridement Size (cm) - Length 3.8 -Post Debridement Size (cm) - Width 3.6 -Post Debridement Size (cm) - Depth 0.2 -Total Square Cm 13.68 -Wound/Ulcer Outcome Not Healed -Ulcer Cleansing Rinsed/ Irrigated with Saline -Foul Odor after Cleansing No -Bioengineered Tissue No -Bleeding Controlled with Pressure -Offloading Yes -Type of Offloading Camwalker -Treatment Response Procedure Tolerated Well [See Physician Procedure note for Specifics] Pain Scale: 0-10 Numeric [Pain] -Is Patient Pain Free? Yes Musculoskeletal: No Tenderness to Palpation of Joints or Extremities Neurological: - - Epicritic sensation grossly absent to bilateral lower extremities Psych/Mental Status: Normal Affect, Appropriate Debridement Note Post-Debridement Measurements/Treatment WC - Nurse 2 - General Ulcer CM Notes Start: 09/27/18 09:01 Freq: Status: Active Protocol: Activity Type Activity Date Activity User E-Sign Co-Sign Detail Recorded Client Recorded Date Recorded By Document 09/27/18 09:52 DV [id number] 09/27/18 09:59 DV Document 10/04/18 10:51 AN [id number] 10/04/18 10:57 AN 09/27/18 10/04/18 09:52 10:51 Wound Center Nurse 2 #3- LT HEEL -Time 09:52 10:52 -Correct Patient Yes Yes -Correct Side, Site, Position Yes Yes -Correct Procedure Yes Yes -Procedure Performed Yes Yes -Type of Procedure Debridement Debridement -Clinical Debridement Subcutaneous Subcutaneous -Post Debridement Size (cm) - Length 3.8 3.8 -Post Debridement Size (cm) - Width 4.0 3.6 -Post Debridement Size (cm) - Depth 0.4 0.2 -Total Square Cm 15.20 13.68 -Wound/Ulcer Outcome Not Healed Not Healed -Ulcer Cleansing Rinsed/ Rinsed/ Irrigated with Irrigated with Saline Saline -Foul Odor after Cleansing No No -Bioengineered Tissue No No -Bleeding Controlled with Pressure Pressure -Offloading No Yes -Type of Offloading Camwalker -Treatment Response Procedure Procedure Tolerated Well Tolerated Well Pain Scale: 0-10 Numeric Is Patient Pain Free? Yes Yes Wound debrided: Left heel Laterality: Left Type of Debridement: Excisional debridement Anesthesia Used: 4% Lidocaine Solution Depth: in the subcutaneous layer Percentage of wound debrided: 100 Instrument Used: 7mm curette, #15 blade Tissue Removed: Adherent slough, fibrin, biofilm, hyperkeratotic tissue Severity: Fat Layer Exposed Amount of bleeding with debridement: Mild Bleeding Controlled with: Pressure Patient tolerated procedure well Assessment/Plan Assessment: Diabetic ulcer left heel. DM 2 with neuropathy. Other comorbidities Plan: Patient was carefully examined and evaluated again today. An excisional subcutaneous debridement was performed as noted in the clinical panel. Once complete, the site was dressed with Aquacel Ag followed by dry sterile dressing and Tubigrip for compression. The patient is to have the dressing changed in this manner daily. The patient was instructed to keep the left heel offloaded at all times while seated or laying down. She is to keep the heel floated completely with nothing under it except air. Patient is to be nonweightbearing to the left heel. Patient had vascular studies performed at her most recent stay in the hospital and these were carefully reviewed prior to patient's visit today. I continue to recommend a diet high in protein to help optimize ulcer healing potential. We will apply for Apligraf for patient's next visit. The patient was educated on all signs and symptoms of local and systemic infection, and she was instructed to go to the emergency room immediately should she notice any of these. All other questions were answered to the patient's satisfaction today. The patient will follow back up in clinic in 1 week to check on progress, or sooner if needed before then.
--- NOTE | 2018-10-04 14:11 | PN.PCM_ITS ---
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 Patient is not sure exactly how long the ulcer has been present. She does relate that earlier this August she was hospitalized and they saw a black eschar to the patient's heel. This was debrided by Dr. Gomez while she was in inpatient and she had been following up with him in office. He sent the patient to the wound healing center in hopes of the possibility of placement of advanced wound care product. She has finished her antibiotics that she was discharged on from the hospital. She denies noticing any signs of local infection since she was discharged. She is currently staying at [facility]. She has been keeping the area dressed daily with Santyl dressing changes. She also relates that she has been keeping all pressure off of her left heel. Progress of Wound: Ulcer stable this week again. Patient continues to deny any signs of local infection. She says she has been trying to keep pressure off of heel at all times. Denies any signs of infection to area. - Physical Exam Vital Signs Temp Pulse Resp BP 97.8 F 78 18 117/66 10/04/18 10:15 10/04/18 10:15 10/04/18 10:15 10/04/18 10:15 General: Alert, Oriented x3, Cooperative, No apparent distress Extremities: No cyanosis, Capillary Refill Less than 3 Seconds - To all distal digits, No Calf Tenderness - Negative Angella and Pinto signs bilateral, Edema - Slight lower extremity edema, Peripheral Pulses Normal Skin: Ulcer/ Wound - Ulcer to left heel with fat layer exposed. Measurements are noted below. The ulcer base is a mixture of adherent slough, fibrin, biofilm, granular tissue as well as some slight surrounding hyperkeratotic tissue. There is no purulence, no malodor, no surrounding or extending cellulitis, no increase in warmth, no probing to bone, no tracking, no undermining currently noted. Wound Measurements and Assessment WC - Nurse 1 - General Ulcer Measurement Start: 09/27/18 09:01 Freq: Status: Active Protocol: Activity Type Activity Date Activity User E-Sign Co-Sign Detail Recorded Client Recorded Date Recorded By Document 10/04/18 10:15 RB [id number] 10/04/18 10:18 RB 10/04/18 10:15 Wound Center Nurse 1 [Ulcer Assessment] #3- LT HEEL -Combined with other wound No -Current Size (cm) - Length 2 -Current Size (cm) - Width 4.4 -Current Size (cm) - Depth 0.2 -Total Square Cm 8.8 -Tunneling No -Undermining/Tunneling No -Circular Undermining No -Exudate Amt Small -Exudate Type Serosanguineous -Wound Margin Thickened -Granulation Amt Large (67-100%) -Granulation Quality [place] -Slough/Fibrin Yes -Necrosis Amt Small (1-33%) -Necrotic Tissue Type Adherent Slough -Structure Exposed N/A -Texture (Joan-wound Skin Appearance) Callus -Moisture (Joan-wound Skin Appearance Assessed ) -Color (Joan-wound Skin Appearance) Assessed -Temperature (Joan-wound Skin No Abnormality Appearance) (Pt Warm) -Tenderness on Palpation (Joan-wound No Skin Appearance) -Ulcer Cleansing Wound Cleanser -Foul Odor after Cleansing No -Anesthetic Used 5% Lidocaine Gel [Edema Assessment] -Lower Limb Edema Present Yes -Left Calf (cm) 51.5 -Left Ankle (cm) 27 WC - Nurse 2 - General Ulcer CM Notes Start: 09/27/18 09:01 Freq: Status: Active Protocol: Activity Type Activity Date Activity User E-Sign Co-Sign Detail Recorded Client Recorded Date Recorded By Document 10/04/18 10:51 AN [id number] 10/04/18 10:57 AN 10/04/18 10:51 Wound Center Nurse 2 [Procedure/Treatment] #3- LT HEEL -Time 10:52 -Correct Patient Yes -Correct Side, Site, Position Yes -Correct Procedure Yes -Procedure Performed Yes -Type of Procedure Debridement -Clinical Debridement Subcutaneous -Post Debridement Size (cm) - Length 3.8 -Post Debridement Size (cm) - Width 3.6 -Post Debridement Size (cm) - Depth 0.2 -Total Square Cm 13.68 -Wound/Ulcer Outcome Not Healed -Ulcer Cleansing Rinsed/ Irrigated with Saline -Foul Odor after Cleansing No -Bioengineered Tissue No -Bleeding Controlled with Pressure -Offloading Yes -Type of Offloading Camwalker -Treatment Response Procedure Tolerated Well [See Physician Procedure note for Specifics] Pain Scale: 0-10 Numeric [Pain] -Is Patient Pain Free? Yes Musculoskeletal: No Tenderness to Palpation of Joints or Extremities Neurological: - - Epicritic sensation grossly absent to bilateral lower extremities Psych/Mental Status: Normal Affect, Appropriate Debridement Note Post-Debridement Measurements/Treatment WC - Nurse 2 - General Ulcer CM Notes Start: 09/27/18 09:01 Freq: Status: Active Protocol: Activity Type Activity Date Activity User E-Sign Co-Sign Detail Recorded Client Recorded Date Recorded By Document 09/27/18 09:52 DV [email or web address] 09/27/18 09:59 DV Document 10/04/18 10:51 AN [id number] 10/04/18 10:57 AN 09/27/18 10/04/18 09:52 10:51 Wound Center Nurse 2 #3- LT HEEL -Time 09:52 10:52 -Correct Patient Yes Yes -Correct Side, Site, Position Yes Yes -Correct Procedure Yes Yes -Procedure Performed Yes Yes -Type of Procedure Debridement Debridement -Clinical Debridement Subcutaneous Subcutaneous -Post Debridement Size (cm) - Length 3.8 3.8 -Post Debridement Size (cm) - Width 4.0 3.6 -Post Debridement Size (cm) - Depth 0.4 0.2 -Total Square Cm 15.20 13.68 -Wound/Ulcer Outcome Not Healed Not Healed -Ulcer Cleansing Rinsed/ Rinsed/ Irrigated with Irrigated with Saline Saline -Foul Odor after Cleansing No No -Bioengineered Tissue No No -Bleeding Controlled with Pressure Pressure -Offloading No Yes -Type of Offloading Camwalker -Treatment Response Procedure Procedure Tolerated Well Tolerated Well Pain Scale: 0-10 Numeric Is Patient Pain Free? Yes Yes Wound debrided: Left heel Laterality: Left Type of Debridement: Excisional debridement Anesthesia Used: 4% Lidocaine Solution Depth: in the subcutaneous layer Percentage of wound debrided: 100 Instrument Used: 7mm curette, #15 blade Tissue Removed: Adherent slough, fibrin, biofilm, hyperkeratotic tissue Severity: Fat Layer Exposed Amount of bleeding with debridement: Mild Bleeding Controlled with: Pressure Patient tolerated procedure well Assessment/Plan Assessment: Diabetic ulcer left heel. DM 2 with neuropathy. Other comorbidities Plan: Patient was carefully examined and evaluated again today. An excisional s ubcutaneous debridement was performed as noted in the clinical panel. Once complete, the site was dressed with Aquacel Ag followed by dry sterile dressing and Tubigrip for compression. The patient is to have the dressing changed in this manner daily. The patient was instructed to keep the left heel offloaded at all times while seated or laying down. She is to keep the heel floated completely with nothing under it except air. Patient is to be nonweightbearing to the left heel. Patient had vascular studies performed at her most recent stay in the hospital and these were carefully reviewed prior to patient's visit today. I continue to recommend a diet high in protein to help optimize ulcer healing potential. We will apply for Apligraf for patient's next visit. The patient was educated on all signs and symptoms of local and systemic infection, and she was instructed to go to the emergency room immediately should she notice any of these. All other questions were answered to the patient's satisfaction today. The patient will follow back up in clinic in 1 week to check on progress, or sooner if needed before then.
[2018-10-18 09:36] VITALS: BP 129/78; PULSE 78; RESP 16; TEMP 36.2; BMI 42.2
--- NOTE | 2018-10-18 13:03 | PCM.WC.PN ---
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 Patient is not sure exactly how long the ulcer has been present. She does relate that earlier this August she was hospitalized and they saw a black eschar to the patient's heel. This was debrided by Dr. Gomez while she was in inpatient and she had been following up with him in office. He sent the patient to the wound healing center in hopes of the possibility of placement of advanced wound care product. She has finished her antibiotics that she was discharged on from the hospital. She denies noticing any signs of local infection since she was discharged. She is currently staying at [facility]. She has been keeping the area dressed daily with Santyl dressing changes. She also relates that she has been keeping all pressure off of her left heel. Progress of Wound: Ulcer shows improvement this week. Patient continues to deny any signs of local infection. She says she has been trying to keep pressure off of heel at all times. Denies any signs of infection to area. - Physical Exam Vital Signs Temp Pulse Resp BP 97.2 F L 78 16 129/78 H 10/18/18 09:36 10/18/18 09:36 10/18/18 09:36 10/18/18 09:36 General: Alert, Oriented x3, Cooperative, No apparent distress Extremities: No cyanosis, Capillary Refill Less than 3 Seconds, No Calf Tenderness - Negative Angella and Pinto signs bilateral, Edema - Slight lower extremity edema, Peripheral Pulses Normal Skin: Ulcer/ Wound - Ulcer to left heel with fat layer exposed. Measurements are noted below. The ulcer base is a mixture of adherent slough, fibrin, biofilm, granular tissue as well as some slight surrounding hyperkeratotic tissue. There is no purulence, no malodor, no surrounding or extending cellulitis, no increase in warmth, no probing to bone, no tracking, no undermining currently noted. Wound Measurements and Assessment WC - Nurse 1 - General Ulcer Measurement Start: 09/27/18 09:01 Freq: Status: Active Protocol: Activity Type Activity Date Activity User E-Sign Co-Sign Detail Recorded Client Recorded Date Recorded By Document 10/18/18 09:36 [facility] [id number] 10/18/18 09:45 [facility] 10/18/18 09:36 Wound Center Nurse 1 [Ulcer Assessment] #3- LT HEEL -Combined with other wound No -Current Size (cm) - Length 4.7 -Current Size (cm) - Width 2.9 -Current Size (cm) - Depth 0.1 -Total Square Cm 13.63 -Date of Last Picture (Recall this 10/18/18 field) -Photo Taken Yes -Epithelialization None Present -Tunneling No -Undermining/Tunneling No -Circular Undermining No -Exudate Amt Small -Exudate Type Serosanguineous -Wound Margin Distinct, Outline Attached -Granulation Amt Medium (34-66%) -Granulation Quality Red -Slough/Fibrin Yes -Necrosis Amt Medium (34-66%) -Necrotic Tissue Type Adherent Slough -Texture (Joan-wound Skin Appearance) Assessed Callus Scarring -Moisture (Joan-wound Skin Appearance Assessed ) Dry/Scaly -Color (Joan-wound Skin Appearance) Assessed Erythema -Temperature (Joan-wound Skin No Abnormality Appearance) (Pt Warm) -Tenderness on Palpation (Joan-wound No Skin Appearance) -Ulcer Cleansing Rinsed/ Irrigated with Saline -Foul Odor after Cleansing No -Anesthetic Used 5% Lidocaine Gel [Edema Assessment] -Lower Limb Edema Present Yes -Left Calf (cm) 52.4 -Left Ankle (cm) 29.5 - Nurse 2 - General Ulcer CM Notes Start: 09/27/18 09:01 Freq: Status: Active Protocol: Activity Type Activity Date Activity User E-Sign Co-Sign Detail Recorded Client Recorded Date Recorded By Document 10/18/18 10:17 AN [id number] 10/18/18 10:28 AN 10/18/18 10:17 Wound Center Nurse 2 [Procedure/Treatment] #3- LT HEEL -Time 10:18 -Correct Patient Yes -Correct Side, Site, Position Yes -Correct Procedure Yes -Procedure Performed Yes -Type of Procedure Debridement -Clinical Debridement Subcutaneous -Post Debridement Size (cm) - Length 2.8 -Post Debridement Size (cm) - Width 1.9 -Post Debridement Size (cm) - Depth 0.2 -Total Square Cm 5.32 -Wound/Ulcer Outcome Not Healed -Ulcer Cleansing Rinsed/ Irrigated with Saline -Foul Odor after Cleansing No -Bioengineered Tissue Yes -Type of bioengineered Tissue [id number] -Expiration Date 12/28/20 -Product Lot Number [id number] -Percent Used 100 -Bleeding Controlled with Pressure -Offloading No -Treatment Response Procedure Tolerated Well [See Physician Procedure note for Specifics] Pain Scale: 0-10 Numeric [Pain] -Is Patient Pain Free? Yes Musculoskeletal: No Tenderness to Palpation of Joints or Extremities Neurological: - - Epicritic sensation grossly absent to bilateral lower extremities Psych/Mental Status: Normal Affect, Appropriate Debridement Note Post-Debridement Measurements/Treatment WC - Nurse 2 - General Ulcer CM Notes Start: 09/27/18 09:01 Freq: Status: Active Protocol: Activity Type Activity Date Activity User E-Sign Co-Sign Detail Recorded Client Recorded Date Recorded By Document 09/27/18 09:52 DV [id number] 09/27/18 09:59 DV Document 10/04/18 10:51 AN [id number] 10/04/18 10:57 AN Document 10/18/18 10:17 AN [id number] 10/18/18 10:28 AN 09/27/18 10/04/18 10/18/18 09:52 10:51 10:17 Wound Center Nurse 2 #3- LT HEEL -Time 09:52 10:52 10:18 -Correct Patient Yes Yes Yes -Correct Side, Site, Position Yes Yes Yes -Correct Procedure Yes Yes Yes -Procedure Performed Yes Yes Yes -Type of Procedure Debridement Debridement Debridement -Clinical Debridement Subcutaneous Subcutaneous Subcutaneous -Post Debridement Size (cm) - Length 3.8 3.8 2.8 -Post Debridement Size (cm) - Width 4.0 3.6 1.9 -Post Debridement Size (cm) - Depth 0.4 0.2 0.2 -Total Square Cm 15.20 13.68 5.32 -Wound/Ulcer Outcome Not Healed Not Healed Not Healed -Ulcer Cleansing Rinsed/ Rinsed/ Rinsed/ Irrigated with Irrigated with Irrigated with Saline Saline Saline -Foul Odor after Cleansing No No No -Bioengineered Tissue No No Yes -Type of bioengineered Tissue RAUL -Expiration Date 12/28/20 -Product Lot Number [id number] -Percent Used 100 -Bleeding Controlled with Pressure Pressure Pressure -Offloading No Yes No -Type of Offloading Camwalker -Treatment Response Procedure Procedure Procedure Tolerated Well Tolerated Well Tolerated Well Pain Scale: 0-10 Numeric Is Patient Pain Free? Yes Yes Yes Wound debrided: Left heel Laterality: Left Type of Debridement: Excisional debridement Anesthesia Used: 4% Lidocaine Solution Depth: in the subcutaneous layer Percentage of wound debrided: 100 Instrument Used: 7mm curette, #15 blade Tissue Removed: Adherent slough, fibrin, biofilm, hyperkeratotic tissue Severity: Fat Layer Exposed Amount of bleeding with debridement: Mild Bleeding Controlled with: Pressure Patient tolerated procedure well Assessment/Plan Assessment: Diabetic ulcer left heel. DM 2 with neuropathy. Other comorbidities Plan: Patient was carefully examined and evaluated again today. An excisional subcutaneous debridement was performed as noted in the clinical panel. Once complete, the site was dressed with puraply followed by wound veil, steri strips, dry sterile dressing, and Tubigrip for compression. Patient is to not disturb anything below with a layer of the wound veil over the next week, and she is to keep this area clean dry and intact. The patient was instructed to keep the left heel offloaded at all times while seated or laying down. She is to keep the heel floated completely with nothing under it except air. Patient is to be nonweightbearing to the left heel. Patient had vascular studies performed at her most recent stay in the hospital and these were carefully reviewed prior to patient's visit today. I continue to recommend a diet high in protein to help optimize ulcer healing potential. The patient was educated on all signs and symptoms of local and systemic infection, and she was instructed to go to the emergency room immediately should she notice any of these. All other questions were answered to the patient's satisfaction today. The patient will follow back up in clinic in 1 week to check on progress, or sooner if needed before then.
--- NOTE | 2018-10-18 13:10 | PN.PCM_ITS ---
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 Patient is not sure exactly how long the ulcer has been present. She does relate that earlier this August she was hospitalized and they saw a black eschar to the patient's heel. This was debrided by Dr. Gomez while she was in inpatient and she had been following up with him in office. He sent the patient to the wound healing center in hopes of the possibility of placement of advanced wound care product. She has finished her antibiotics that she was discharged on from the hospital. She denies noticing any signs of local infection since she was discharged. She is currently staying at [facility] [place]. She has been keeping the area dressed daily with Santyl dressing changes. She also relates that she has been keeping all pressure off of her left heel. Progress of Wound: Ulcer shows improvement this week. Patient continues to deny any signs of local infection. She says she has been trying to keep pressure off of heel at all times. Denies any signs of infection to area. - Physical Exam Vital Signs Temp Pulse Resp BP 97.2 F L 78 16 129/78 H 10/18/18 09:36 10/18/18 09:36 10/18/18 09:36 10/18/18 09:36 General: Alert, Oriented x3, Cooperative, No apparent distress Extremities: No cyanosis, Capillary Refill Less than 3 Seconds, No Calf Tenderness - Negative Angella and Pinto signs bilateral, Edema - Slight lower extremity edema, Peripheral Pulses Normal Skin: Ulcer/ Wound - Ulcer to left heel with fat layer exposed. Measurements are noted below. The ulcer base is a mixture of adherent slough, fibrin, biofilm, granular tissue as well as some slight surrounding hyperkeratotic tissue. There is no purulence, no malodor, no surrounding or extending cellulitis, no increase in warmth, no probing to bone, no tracking, no undermining currently noted. Wound Measurements and Assessment WC - Nurse 1 - General Ulcer Measurement Start: 09/27/18 09:01 Freq: Status: Active Protocol: Activity Type Activity Date Activity User E-Sign Co-Sign Detail Recorded Client Recorded Date Recorded By Document 10/18/18 09:36 [facility] [id number] 10/18/18 09:45 [facility] 10/18/18 09:36 Wound Center Nurse 1 [Ulcer Assessment] #3- LT HEEL -Combined with other wound No -Current Size (cm) - Length 4.7 -Current Size (cm) - Width 2.9 -Current Size (cm) - Depth 0.1 -Total Square Cm 13.63 -Date of Last Picture (Recall this 10/18/18 field) -Photo Taken Yes -Epithelialization None Present -Tunneling No -Undermining/Tunneling No -Circular Undermining No -Exudate Amt Small -Exudate Type Serosanguineous -Wound Margin Distinct, Outline Attached -Granulation Amt Medium (34-66%) -Granulation Quality Red -Slough/Fibrin Yes -Necrosis Amt Medium (34-66%) -Necrotic Tissue Type Adherent Slough -Texture (Joan-wound Skin Appearance) Assessed Callus Scarring -Moisture (Joan-wound Skin Appearance Assessed ) Dry/Scaly -Color (Joan-wound Skin Appearance) Assessed Erythema -Temperature (Joan-wound Skin No Abnormality Appearance) (Pt Warm) -Tenderness on Palpation (Joan-wound No Skin Appearance) -Ulcer Cleansing Rinsed/ Irrigated with Saline -Foul Odor after Cleansing No -Anesthetic Used 5% Lidocaine Gel [Edema Assessment] -Lower Limb Edema Present Yes -Left Calf (cm) 52.4 -Left Ankle (cm) 29.5 - Nurse 2 - General Ulcer CM Notes Start: 09/27/18 09:01 Freq: Status: Active Protocol: Activity Type Activity Date Activity User E-Sign Co-Sign Detail Recorded Client Recorded Date Recorded By Document 10/18/18 10:17 AN [id number] 10/18/18 10:28 AN 10/18/18 10:17 Wound Center Nurse 2 [Procedure/Treatment] #3- LT HEEL -Time 10:18 -Correct Patient Yes -Correct Side, Site, Position Yes -Correct Procedure Yes -Procedure Performed Yes -Type of Procedure Debridement -Clinical Debridement Subcutaneous -Post Debridement Size (cm) - Length 2.8 -Post Debridement Size (cm) - Width 1.9 -Post Debridement Size (cm) - Depth 0.2 -Total Square Cm 5.32 -Wound/Ulcer Outcome Not Healed -Ulcer Cleansing Rinsed/ Irrigated with Saline -Foul Odor after Cleansing No -Bioengineered Tissue Yes -Type of bioengineered Tissue [id number] -Expiration Date 12/28/20 -Product Lot Number [id number] -Percent Used 100 -Bleeding Controlled with Pressure -Offloading No -Treatment Response Procedure Tolerated Well [See Physician Procedure note for Specifics] Pain Scale: 0-10 Numeric [Pain] -Is Patient Pain Free? Yes Musculoskeletal: No Tenderness to Palpation of Joints or Extremities Neurological: - - Epicritic sensation grossly absent to bilateral lower extremities Psych/Mental Status: Normal Affect, Appropriate Debridement Note Post-Debridement Measurements/Treatment WC - Nurse 2 - General Ulcer CM Notes Start: 09/27/18 09:01 Freq: Status: Active Protocol: Activity Type Activity Date Activity User E-Sign Co-Sign Detail Recorded Client Recorded Date Recorded By Document 09/27/18 09:52 DV [id number] 09/27/18 09:59 DV Document 10/04/18 10:51 AN [id number] 10/04/18 10:57 AN Document 10/18/18 10:17 AN [id number] 10/18/18 10:28 AN 09/27/18 10/04/18 10/18/18 09:52 10:51 10:17 Wound Center Nurse 2 #3- LT HEEL -Time 09:52 10:52 10:18 -Correct Patient Yes Yes Yes -Correct Side, Site, Position Yes Yes Yes -Correct Procedure Yes Yes Yes -Procedure Performed Yes Yes Yes -Type of Procedure Debridement Debridement Debridement -Clinical Debridement Subcutaneous Subcutaneous Subcutaneous -Post Debridement Size (cm) - Length 3.8 3.8 2.8 -Post Debridement Size (cm) - Width 4.0 3.6 1.9 -Post Debridement Size (cm) - Depth 0.4 0.2 0.2 -Total Square Cm 15.20 13.68 5.32 -Wound/Ulcer Outcome Not Healed Not Healed Not Healed -Ulcer Cleansing Rinsed/ Rinsed/ Rinsed/ Irrigated with Irrigated with Irrigated with Saline Saline Saline -Foul Odor after Cleansing No No No -Bioengineered Tissue No No Yes -Type of bioengineered Tissue RAUL -Expiration Date 12/28/20 -Product Lot Number [id number] -Percent Used 100 -Bleeding Controlled with Pressure Pressure Pressure -Offloading No Yes No -Type of Offloading Camwalker -Treatment Response Procedure Procedure Procedure Tolerated Well Tolerated Well Tolerated Well Pain Scale: 0-10 Numeric Is Patient Pain Free? Yes Yes Yes Wound debrided: Left heel Laterality: Left Type of Debridement: Excisional debridement Anesthesia Used: 4% Lidocaine Solution Depth: in the subcutaneous layer Percentage of wound debrided: 100 Instrument Used: 7mm curette, #15 blade Tissue Removed: Adherent slough, fibrin, biofilm, hyperkeratotic tissue Severity: Fat Layer Exposed Amount of bleeding with debridement: Mild Bleeding Controlled with: Pressure Patient tolerated procedure well Assessment/Plan Assessment: Diabetic ulcer left heel. DM 2 with neuropathy. Other comorbidities Plan: Patient was carefully examined and evaluated again today. An excisional subcutaneous debridement was performed as noted in the clinical panel. Once complete, the site was dressed with puraply followed by wound veil, steri strips, dry sterile dressing, and Tubigrip for compression. Patient is to not disturb anything below with a layer of the wound veil over the next week, and she is to keep this area clean dry and intact. The patient was instructed to keep the left heel offloaded at all times while seated or laying down. She is to keep the heel floated completely with nothing under it except air. Patient is to be nonweightbearing to the left heel. Patient had vascular studies performed at her most recent stay in the hospital and these were carefully reviewed prior to patient's visit today. I continue to recommend a diet high in protein to help optimize ulcer healing potential. The patient was educated on all signs and symptoms of local and systemic infection, and she was instructed to go to the emergency room immediately should she notice any of these. All other questions were answered to the patient's satisfaction today. The patient will follow back up in clinic in 1 week to check on progress, or sooner if needed before then.
[2018-10-25 10:07] VITALS: BP 104/52; PULSE 72; RESP 16; TEMP 36.5; BMI 42.2
--- NOTE | 2018-10-25 10:44 | PCM.WC.PN ---
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 Patient is not sure exactly how long the ulcer has been present. She does relate that earlier this August she was hospitalized and they saw a black eschar to the patient's heel. This was debrided by Dr. Gomez while she was in inpatient and she had been following up with him in office. He sent the patient to the wound healing center in hopes of the possibility of placement of advanced wound care product. She has finished her antibiotics that she was discharged on from the hospital. She denies noticing any signs of local infection since she was discharged. She is currently staying at [facility]. She has been keeping the area dressed daily with Santyl dressing changes. She also relates that she has been keeping all pressure off of her left heel. Progress of Wound: Ulcer shows improvement this week. Patient continues to deny any signs of local infection. Was recently admitted to hospital for chest pain. She says she has been trying to keep pressure off of heel at all times. Denies any signs of infection to area. - Physical Exam Vital Signs Temp Pulse Resp BP 97.7 F L 72 16 104/52 L 10/25/18 10:10/25/18 10:07 10/25/18 10:10/25/18 10:07 General: Alert, Oriented x3, Cooperative, No apparent distress Extremities: No cyanosis, Capillary Refill Less than 3 Seconds, No Calf Tenderness - Negative Angella and Pinto signs bilateral, Edema - Slight lower extremity edema, Peripheral Pulses Normal Skin: Ulcer/ Wound - Ulcer to left heel with fat layer exposed. Measurements are noted below. The ulcer base is a mixture of adherent slough, fibrin, biofilm, granular tissue as well as some slight surrounding hyperkeratotic tissue. There is no purulence, no malodor, no surrounding or extending cellulitis, no increase in warmth, no probing to bone, no tracking, no undermining currently noted. Wound Measurements and Assessment WC - Nurse 1 - General Ulcer Measurement Start: 09/27/18 09:01 Freq: Status: Active Protocol: Activity Type Activity Date Activity User E-Sign Co-Sign Detail Recorded Client Recorded Date Recorded By Document 10/25/18 10:07 [email or web address] [id number] 10/25/18 10:13 DL 10/25/18 10:07 Wound Center Nurse 1 [Ulcer Assessment] #3- LT HEEL -Current Size (cm) - Length 1.6 -Current Size (cm) - Width 0.8 -Current Size (cm) - Depth 0.1 -Total Square Cm 1.28 -Photo Taken No -Exudate Amt Small -Exudate Type Serosanguineous -Wound Margin Thickened -Granulation Amt Small (1-33%) -Granulation Quality Tingley -Necrosis Amt Large (67-100%) -Necrotic Tissue Type Adherent Slough -Structure Exposed N/A -Texture (Joan-wound Skin Appearance) Scarring -Moisture (Joan-wound Skin Appearance Dry/Scaly ) -Color (Joan-wound Skin Appearance) No Abnormality -Temperature (Joan-wound Skin No Abnormality Appearance) (Pt Warm) -Tenderness on Palpation (Joan-wound No Skin Appearance) -Ulcer Cleansing Wound Cleanser -Foul Odor after Cleansing No -Anesthetic Used 4% Lidocaine Solution [Edema Assessment] -Left Calf (cm) 49 -Left Ankle (cm) 26.5 WC - Nurse 2 - General Ulcer CM Notes Start: 09/27/18 09:01 Freq: Status: Active Protocol: Activity Type Activity Date Activity User E-Sign Co-Sign Detail Recorded Client Recorded Date Recorded By Document 10/25/18 10:28 [email or web address] [id number] 10/25/18 10:31 ISAURO 10/25/18 10:28 Wound Center Nurse 2 [Procedure/Treatment] #3- LT HEEL -Time 10:28 -Correct Patient Yes -Correct Side, Site, Position Yes -Correct Procedure Yes -Procedure Performed Yes -Type of Procedure Debridement -Clinical Debridement Subcutaneous -Post Debridement Size (cm) - Length 2.8 -Post Debridement Size (cm) - Width 1.9 -Post Debridement Size (cm) - Depth 0.2 -Total Square Cm 5.32 -Wound/Ulcer Outcome Not Healed -Ulcer Cleansing Rinsed/ Irrigated with Saline -Foul Odor after Cleansing No -Bioengineered Tissue Yes -Type of bioengineered Tissue Apligraf -Expiration Date 10/31/18 -Product Lot Number [id number]. -Percent Used 50 -Saline Lot Number [id number] -Bleeding Controlled with Pressure -Offloading Yes -Type of Offloading Camwalker -Treatment Response Procedure Tolerated Well [See Physician Procedure note for Specifics] Pain Scale: 0-10 Numeric [Pain] -Is Patient Pain Free? Yes Musculoskeletal: No Tenderness to Palpation of Joints or Extremities Neurological: - - Epicritic sensation grossly absent to bilateral lower extremities Psych/Mental Status: Normal Affect, Appropriate Debridement Note Post-Debridement Measurements/Treatment WC - Nurse 2 - General Ulcer CM Notes Start: 09/27/18 09:01 Freq: Status: Active Protocol: Activity Type Activity Date Activity User E-Sign Co-Sign Detail Recorded Client Recorded Date Recorded By Document 09/27/18 09:52 DV [id number] 09/27/18 09:59 DV Document 10/04/18 10:51 AN [id number] 10/04/18 10:57 AN Document 10/18/18 10:17 AN [id number] 10/18/18 10:28 AN Document 10/25/18 10:28 [id number] 10/25/18 10:31 09/27/18 10/04/18 10/18/18 09:52 10:51 10:17 Wound Center Nurse 2 #3- LT HEEL -Time 09:52 10:52 10:18 -Correct Patient Yes Yes Yes -Correct Side, Site, Position Yes Yes Yes -Correct Procedure Yes Yes Yes -Procedure Performed Yes Yes Yes -Type of Procedure Debridement Debridement Debridement -Clinical Debridement Subcutaneous Subcutaneous Subcutaneous -Post Debridement Size (cm) - Length 3.8 3.8 2.8 -Post Debridement Size (cm) - Width 4.0 3.6 1.9 -Post Debridement Size (cm) - Depth 0.4 0.2 0.2 -Total Square Cm 15.20 13.68 5.32 -Wound/Ulcer Outcome Not Healed Not Healed Not Healed -Ulcer Cleansing Rinsed/ Rinsed/ Rinsed/ Irrigated with Irrigated with Irrigated with Saline Saline Saline -Foul Odor after Cleansing No No No -Bioengineered Tissue No No Yes -Type of bioengineered Tissue [id number] -Expiration Date 12/28/20 -Product Lot Number [id number] -Percent Used 100 -Saline Lot Number -Bleeding Controlled with Pressure Pressure Pressure -Offloading No Yes No -Type of Offloading Camwalker -Treatment Response Procedure Procedure Procedure Tolerated Well Tolerated Well Tolerated Well Pain Scale: 0-10 Numeric Is Patient Pain Free? Yes Yes Yes 10/25/18 10:28 Wound Center Nurse 2 #3- LT HEEL -Time 10:28 -Correct Patient Yes -Correct Side, Site, Position Yes -Correct Procedure Yes -Procedure Performed Yes -Type of Procedure Debridement -Clinical Debridement Subcutaneous -Post Debridement Size (cm) - Length 2.8 -Post Debridement Size (cm) - Width 1.9 -Post Debridement Size (cm) - Depth 0.2 -Total Square Cm 5.32 -Wound/Ulcer Outcome Not Healed -Ulcer Cleansing Rinsed/ Irrigated with Saline -Foul Odor after Cleansing No -Bioengineered Tissue Yes -Type of bioengineered Tissue Apligraf -Expiration Date 10/31/18 -Product Lot Number [id number]. -Percent Used 50 -Saline Lot Number [id number] -Bleeding Controlled with Pressure -Offloading Yes -Type of Offloading Camwalker -Treatment Response Procedure Tolerated Well Pain Scale: 0-10 Numeric Is Patient Pain Free? Yes Wound debrided: Left heel Laterality: Left Type of Debridement: Excisional debridement Anesthesia Used: 4% Lidocaine Solution Depth: in the subcutaneous layer Percentage of wound debrided: 100 Instrument Used: 3mm curette, #15 blade Tissue Removed: Adherent slough, fibrin, hyperkeratotic tissue Severity: Fat Layer Exposed Amount of bleeding with debridement: Mild Bleeding Controlled with: Pressure Patient tolerated procedure well Assessment/Plan Assessment: Diabetic ulcer left heel. DM 2 with neuropathy. Other comorbidities Plan: Patient was carefully examined and evaluated again today. An excisional subcutaneous debridement was performed as noted in the clinical panel. Once complete, the site was dressed with Apligraf #1 followed by Steri-Strips, wound veil, more Steri strips, dry sterile dressing, and Tubigrip for compression. Patient is to not disturb anything below with a layer of the wound veil over the next week, and she is to keep this area clean dry and intact. The patient was instructed to keep the left heel offloaded at all times while seated or laying down. She is to keep the heel floated completely with nothing under it except air. Patient is to be nonweightbearing to the left heel. Patient had vascular studies performed at her most recent stay in the hospital and these were carefully reviewed prior to patient's visit today. I continue to recommend a diet high in protein to help optimize ulcer healing potential. The patient was educated on all signs and symptoms of local and systemic infection, and she was instructed to go to the emergency room immediately should she notice any of these. All other questions were answered to the patient's satisfaction today. The patient will follow back up in clinic in 1 week to check on progress, or sooner if needed before then.
--- NOTE | 2018-10-25 10:48 | PN.PCM_ITS ---
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 Patient is not sure exactly how long the ulcer has been present. She does relate that earlier this August she was hospitalized and they saw a black eschar to the patient's heel. This was debrided by Dr. Gomez while she was in inpatient and she had been following up with him in office. He sent the patient to the wound healing center in hopes of the possibility of placement of advanced wound care product. She has finished her antibiotics that she was discharged on from the hospital. She denies noticing any signs of local infection since she was discharged. She is currently staying at [facility]. She has been keeping the area dressed daily with Santyl dressing changes. She also relates that she has been keeping all pressure off of her left heel. Progress of Wound: Ulcer shows improvement this week. Patient continues to deny any signs of local infection. Was recently admitted to hospital for chest pain. She says she has been trying to keep pressure off of heel at all times. Denies any signs of infection to area. - Physical Exam Vital Signs Temp Pulse Resp BP 97.7 F L 72 16 104/52 L 10/25/18 10:10/25/18 10:07 10/25/18 10:10/25/18 10:07 General: Alert, Oriented x3, Cooperative, No apparent distress Extremities: No cyanosis, Capillary Refill Less than 3 Seconds, No Calf Tenderness - Negative Angella and Pinto signs bilateral, Edema - Slight lower extremity edema, Peripheral Pulses Normal Skin: Ulcer/ Wound - Ulcer to left heel with fat layer exposed. Measurements are noted below. The ulcer base is a mixture of adherent slough, fibrin, biofilm, granular tissue as well as some slight surrounding hyperkeratotic tissue. There is no purulence, no malodor, no surrounding or extending cellulitis, no increase in warmth, no probing to bone, no tracking, no undermining currently noted. Wound Measurements and Assessment WC - Nurse 1 - General Ulcer Measurement Start: 09/27/18 09:01 Freq: Status: Active Protocol: Activity Type Activity Date Activity User E-Sign Co-Sign Detail Recorded Client Recorded Date Recorded By Document 10/25/18 10:07 [email or web address] [id number] 10/25/18 10:13 DL 10/25/18 10:07 Wound Center Nurse 1 [Ulcer Assessment] #3- LT HEEL -Current Size (cm) - Length 1.6 -Current Size (cm) - Width 0.8 -Current Size (cm) - Depth 0.1 -Total Square Cm 1.28 -Photo Taken No -Exudate Amt Small -Exudate Type Serosanguineous -Wound Margin Thickened -Granulation Amt Small (1-33%) -Granulation Quality [place]aman -Necrosis Amt Large (67-100%) -Necrotic Tissue Type Adherent Slough -Structure Exposed N/A -Texture (Joan-wound Skin Appearance) Scarring -Moisture (Joan-wound Skin Appearance Dry/Scaly ) -Color (Joan-wound Skin Appearance) No Abnormality -Temperature (Joan-wound Skin No Abnormality Appearance) (Pt Warm) -Tenderness on Palpation (Joan-wound No Skin Appearance) -Ulcer Cleansing Wound Cleanser -Foul Odor after Cleansing No -Anesthetic Used 4% Lidocaine Solution [Edema Assessment] -Left Calf (cm) 49 -Left Ankle (cm) 26.5 WC - Nurse 2 - General Ulcer CM Notes Start: 09/27/18 09:01 Freq: Status: Active Protocol: Activity Type Activity Date Activity User E-Sign Co-Sign Detail Recorded Client Recorded Date Recorded By Document 10/25/18 10:28 ISAURO [id number] 10/25/18 10:31 ISAURO 10/25/18 10:28 Wound Center Nurse 2 [Procedure/Treatment] #3- LT HEEL -Time 10:28 -Correct Patient Yes -Correct Side, Site, Position Yes -Correct Procedure Yes -Procedure Performed Yes -Type of Procedure Debridement -Clinical Debridement Subcutaneous -Post Debridement Size (cm) - Length 2.8 -Post Debridement Size (cm) - Width 1.9 -Post Debridement Size (cm) - Depth 0.2 -Total Square Cm 5.32 -Wound/Ulcer Outcome Not Healed -Ulcer Cleansing Rinsed/ Irrigated with Saline -Foul Odor after Cleansing No -Bioengineered Tissue Yes -Type of bioengineered Tissue Apligraf -Expiration Date 10/31/18 -Product Lot Number [id number]. -Percent Used 50 -Saline Lot Number [id number] -Bleeding Controlled with Pressure -Offloading Yes -Type of Offloading Camwalker -Treatment Response Procedure Tolerated Well [See Physician Procedure note for Specifics] Pain Scale: 0-10 Numeric [Pain] -Is Patient Pain Free? Yes Musculoskeletal: No Tenderness to Palpation of Joints or Extremities Neurological: - - Epicritic sensation grossly absent to bilateral lower extremities Psych/Mental Status: Normal Affect, Appropriate Debridement Note Post-Debridement Measurements/Treatment WC - Nurse 2 - General Ulcer CM Notes Start: 09/27/18 09:01 Freq: Status: Active Protocol: Activity Type Activity Date Activity User E-Sign Co-Sign Detail Recorded Client Recorded Date Recorded By Document 09/27/18 09:52 DV [id number] 09/27/18 09:59 DV Document 10/04/18 10:51 AN [id number] 10/04/18 10:57 AN Document 10/18/18 10:17 AN [id number] 10/18/18 10:28 AN Document 10/25/18 10:28 [id number] 10/25/18 10:31 09/27/18 10/04/18 10/18/18 09:52 10:51 10:17 Wound Center Nurse 2 #3- LT HEEL -Time 09:52 10:52 10:18 -Correct Patient Yes Yes Yes -Correct Side, Site, Position Yes Yes Yes -Correct Procedure Yes Yes Yes -Procedure Performed Yes Yes Yes -Type of Procedure Debridement Debridement Debridement -Clinical Debridement Subcutaneous Subcutaneous Subcutaneous -Post Debridement Size (cm) - Length 3.8 3.8 2.8 -Post Debridement Size (cm) - Width 4.0 3.6 1.9 -Post Debridement Size (cm) - Depth 0.4 0.2 0.2 -Total Square Cm 15.20 13.68 5.32 -Wound/Ulcer Outcome Not Healed Not Healed Not Healed -Ulcer Cleansing Rinsed/ Rinsed/ Rinsed/ Irrigated with Irrigated with Irrigated with Saline Saline Saline -Foul Odor after Cleansing No No No -Bioengineered Tissue No No Yes -Type of bioengineered Tissue [id number] -Expiration Date 12/28/20 -Product Lot Number [id number] -Percent Used 100 -Saline Lot Number -Bleeding Controlled with Pressure Pressure Pressure -Offloading No Yes No -Type of Offloading Camwalker -Treatment Response Procedure Procedure Procedure Tolerated Well Tolerated Well Tolerated Well Pain Scale: 0-10 Numeric Is Patient Pain Free? Yes Yes Yes 10/25/18 10:28 Wound Center Nurse 2 #3- LT HEEL -Time 10:28 -Correct Patient Yes -Correct Side, Site, Position Yes -Correct Procedure Yes -Procedure Performed Yes -Type of Procedure Debridement -Clinical Debridement Subcutaneous -Post Debridement Size (cm) - Length 2.8 -Post Debridement Size (cm) - Width 1.9 -Post Debridement Size (cm) - Depth 0.2 -Total Square Cm 5.32 -Wound/Ulcer Outcome Not Healed -Ulcer Cleansing Rinsed/ Irrigated with Saline -Foul Odor after Cleansing No -Bioengineered Tissue Yes -Type of bioengineered Tissue Apligraf -Expiration Date 10/31/18 -Product Lot Number [id number]. -Percent Used 50 -Saline Lot Number [id number] -Bleeding Controlled with Pressure -Offloading Yes -Type of Offloading Camwalker -Treatment Response Procedure Tolerated Well Pain Scale: 0-10 Numeric Is Patient Pain Free? Yes Wound debrided: Left heel Laterality: Left Type of Debridement: Excisional debridement Anesthesia Used: 4% Lidocaine Solution Depth: in the subcutaneous layer Percentage of wound debrided: 100 Instrument Used: 3mm curette, #15 blade Tissue Removed: Adherent slough, fibrin, hyperkeratotic tissue Severity: Fat Layer Exposed Amount of bleeding with debridement: Mild Bleeding Controlled with: Pressure Patient tolerated procedure well Assessment/Plan Assessment: Diabetic ulcer left heel. DM 2 with neuropathy. Other comorbidities Plan: Patient was carefully examined and evaluated again today. An excisional subcutaneous debridement was performed as noted in the clinical panel. Once complete, the site was dressed with Apligraf #1 followed by Steri-Strips, wound veil, more Steri strips, dry sterile dressing, and Tubigrip for compression. Patient is to not disturb anything below with a layer of the wound veil over the next week, and she is to keep this area clean dry and intact. The patient was instructed to keep the left heel offloaded at all times while seated or laying down. She is to keep the heel floated completely with nothing under it except air. Patient is to be nonweightbearing to the left heel. Patient had vascular studies performed at her most recent stay in the hospital and these were carefully reviewed prior to patient's visit today. I continue to recommend a diet high in protein to help optimize ulcer healing potential. The patient was educated on all signs and symptoms of local and systemic infection, and she was instructed to go to the emergency room immediately should she notice any of these. All other questions were answered to the patient's satisfaction today. The patient will follow back up in clinic in 1 week to check on progress, or sooner if needed before then.
== END 2018-10-26 23:59 ==
LOC: WC 10:00
PROVIDERS: Family Provider Family Medicine; PCP Family Medicine; Visit Provider Podiatrist
DX: E11.621 Type 2 diabetes mellitus with foot ulcer (principal); E11.42 Type 2 diabetes mellitus with diabetic polyneuropathy; L97.422 Non-pressure chronic ulcer of left heel and midfoot with fat layer exposed; R60.0 Localized edema
CPT/HCPCS: 11042; 15275; 15276; Q4101; Q4196

== ENCOUNTER 2018-11-01 08:50 | Outpatient (RCR) | payer MEDICARE, MEDICAID, SELFPAY ==
[2018-10-27 01:10] VITALS: BP 104/52; PULSE 72; RESP 16; TEMP 36.5
[2018-11-01 09:27] VITALS: BP 119/86; PULSE 79; RESP 16; TEMP 36.2; BMI 42.2
--- NOTE | 2018-11-01 09:34 | WC ---
wound veil and steris left intact for apligraph per dr cruz instructions.
--- NOTE | 2018-11-01 11:44 | PN.PCM_ITS ---
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 Patient is not sure exactly how long the ulcer has been present. She does relate that earlier this August she was hospitalized and they saw a black eschar to the patient's heel. This was debrided by Dr. Gomez while she was in inpatient and she had been following up with him in office. He sent the patient to the wound healing center in hopes of the possibility of placement of advanced wound care product. She has finished her antibiotics that she was discharged on from the hospital. She denies noticing any signs of local infection since she was discharged. She is currently staying at [facility]. She has been keeping the area dressed daily with Santyl dressing changes. She also relates that she has been keeping all pressure off of her left heel. Progress of Wound: Apligraf left in place. Patient continues to deny any signs of local infection. She says she has been trying to keep pressure off of heel at all times. Denies any signs of infection to area. - Physical Exam Vital Signs Temp Pulse Resp BP 97.1 F L 79 16 119/86 H 11/01/18 09:27 11/01/18 09:27 11/01/18 09:27 11/01/18 09:27 General: Alert, Oriented x3, Cooperative, No apparent distress Extremities: No cyanosis, Capillary Refill Less than 3 Seconds, No Calf Tenderness - Negative Angella and Pinto sounds bilateral, Edema - Slight lower extremity edema, Peripheral Pulses Normal Skin: Ulcer/ Wound - Apligraf left in place. No surrounding signs of local infection noted today. Wound Measurements and Assessment WC - Nurse 1 - General Ulcer Measurement Start: 11/01/18 09:26 Freq: Status: Active Protocol: Activity Type Activity Date Activity User E-Sign Co-Sign Detail Recorded Client Recorded Date Recorded By Document 11/01/18 09:27 [facility] [id number] 11/01/18 09:34 [facility] 11/01/18 09:27 Wound Center Nurse 1 [Ulcer Assessment] #3- LT HEEL -Combined with other wound No -Current Size (cm) - Length 0.1 -Current Size (cm) - Width 0.1 -Current Size (cm) - Depth 0.1 -Total Square Cm 0.01 -Photo Taken No [Edema Assessment] -Lower Limb Edema Present Yes -Left Calf (cm) 50 -Left Ankle (cm) 27 WC - Nurse 2 - General Ulcer CM Notes Start: 11/01/18 09:26 Freq: Status: Active Protocol: Activity Type Activity Date Activity User E-Sign Co-Sign Detail Recorded Client Recorded Date Recorded By Document 11/01/18 10:05 AN [id number] 11/01/18 10:07 AN 11/01/18 10:05 Wound Center Nurse 2 [Procedure/Treatment] #3- LT HEEL -Time 10:05 -Correct Patient Yes -Correct Side, Site, Position Yes -Correct Procedure Yes -Procedure Performed No -Post Debridement Size (cm) - Length 0.1 -Post Debridement Size (cm) - Width 0.1 -Post Debridement Size (cm) - Depth 0.1 -Total Square Cm 0.01 -Wound/Ulcer Outcome Not Healed -Ulcer Cleansing Rinsed/ Irrigated with Saline -Foul Odor after Cleansing No -Bioengineered Tissue No -Bleeding Controlled with Pressure -Offloading Yes -Treatment Response Procedure Tolerated Well [See Physician Procedure note for Specifics] Pain Scale: 0-10 Numeric [Pain] -Is Patient Pain Free? Yes Musculoskeletal: No Tenderness to Palpation of Joints or Extremities Neurological: - - Epicritic sensation grossly absent to bilateral lower extremities Psych/Mental Status: Normal Affect, Appropriate Debridement Note Post-Debridement Measurements/Treatment IVY - Nurse 2 - General Ulcer CM Notes Start: 11/01/18 09:26 Freq: Status: Active Protocol: Activity Type Activity Date Activity User E-Sign Co-Sign Detail Recorded Client Recorded Date Recorded By Document 11/01/18 10:05 AN [id number] 11/01/18 10:07 AN 11/01/18 10:05 Wound Center Nurse 2 #3- LT HEEL -Time 10:05 -Correct Patient Yes -Correct Side, Site, Position Yes -Correct Procedure Yes -Procedure Performed No -Post Debridement Size (cm) - Length 0.1 -Post Debridement Size (cm) - Width 0.1 -Post Debridement Size (cm) - Depth 0.1 -Total Square Cm 0.01 -Wound/Ulcer Outcome Not Healed -Ulcer Cleansing Rinsed/ Irrigated with Saline -Foul Odor after Cleansing No -Bioengineered Tissue No -Bleeding Controlled with Pressure -Offloading Yes -Treatment Response Procedure Tolerated Well Pain Scale: 0-10 Numeric Is Patient Pain Free? Yes No debridement was completed today Assessment/Plan Assessment: Diabetic ulcer left heel. DM 2 with neuropathy. Other comorbidities Plan: Patient was carefully examined and evaluated again today. Apligraf was left in place today. No debridement performed at this visit. Patient is to not disturb anything below with a layer of the wound veil over the next week, and she is to keep this area clean dry and intact. The patient was instructed to keep the left heel offloaded at all times while seated or laying down. She is to keep the heel floated completely with nothing under it except air. Patient is to be nonweightbearing to the left heel. Patient had vascular studies performed at her most recent stay in the hospital and these were carefully reviewed prior to patient's visit today. I continue to recommend a diet high in protein to help optimize ulcer healing potential. The patient was educated on all signs and symptoms of local and systemic infection, and she was instructed to go to the emergency room immediately should she notice any of these. All other questions were answered to the patient's satisfaction today. The patient will follow back up in clinic in 1 week to check on progress, or sooner if needed before then.
== END 2018-11-25 23:59 ==
LOC: WC 08:50
PROVIDERS: Family Provider Family Medicine; PCP Family Medicine; Visit Provider Podiatrist
DX: E11.621 Type 2 diabetes mellitus with foot ulcer (principal); E11.42 Type 2 diabetes mellitus with diabetic polyneuropathy; L97.422 Non-pressure chronic ulcer of left heel and midfoot with fat layer exposed; R60.0 Localized edema
CPT/HCPCS: 99212; G0463

== ENCOUNTER 2018-11-19 10:45 | Emergency (ER) | payer MEDICARE, MEDICAID, SELFPAY ==
[2018-11-19 10:46] VITALS: BP 121/73; PULSE 85; RESP 17; TEMP 36.5; O2SAT 99; BMI 41.1
[2018-11-19 13:12] VITALS: BP 136/79; PULSE 74; RESP 14; O2SAT 98
--- NOTE | 2018-11-19 13:24 | CT_ITS ---
STUDY: CT ABDOMEN AND PELVIS WITH CONTRAST REASON FOR EXAM: Female, 38 years old. Reason insertion of suprapubic catheter. Patent drainage from the insertion site. RADIATION DOSAGE (If Supplied By Facility): CTDIvol = ( 14.28 ) mGy, DLP = ( 1061.65 ) mGycm TECHNIQUE: Transaxial images were obtained from the dome of the diaphragm to the symphysis pubis without oral contrast. 100 ml of Isovue 300 contrast was administered. Sagittal and coronal images were reconstructed. Individualized dose optimization techniques were used for this CT. COMPARISON: CT abdomen and pelvis 04/13/2018 FINDINGS: Body wall soft tissues: Suprapubic catheter in place. There is induration in the fat surrounding portions of the catheter in particular through the linea alba, suggesting an infectious process, without drainable abscess. The catheter bulb is well positioned within the urinary bladder. There is very slight stranding in the extraperitoneal fat anterior aspect of the urinary bladder adjacent to the path of the catheter. Evidence of abdominal wall mesh hernia repair. Osseous structures: No acute process. Inferior chest: No acute process. Hepatobiliary: Normal. Pancreas: No acute process. Spleen: Normal. Adrenal glands: Normal. Urogenital: Normal left kidney, collecting system, ureter. Mild ectasia of the right renal pelvis, minimal ectasia of the calyces, grade 1 hydronephrosis, with dilated ureter, thickening and hyperemia of the renal pelvis and ureteral wall, without periureteral fatty stranding, features suggesting acute inflammation of the right ureter and renal pelvis. Favoring ascending urinary tract infection. No specific evidence of acute pyelonephritis. The nephrograms are symmetric. There is mild renal cortical scarring on the right, stable. Urinary bladder is decompressed, circumferentially thick-walled, suggesting a component of cystitis. Unremarkable uterus and adnexa. Pelvic floor and sidewalls and retroperitoneum: No mass or adenopathy. Vasculature: No acute process. Stomach: No acute process. Small bowel and mesentery: No acute process. Large bowel: The appendix is well-seen and may be surgically absent. No acute inflammatory features in the region of the cecum. Unremarkable large bowel and rectum. Free fluid or free air: None. CT/Abdomen/Pelvis W IV Cont ONLY IMPRESSION: Inflammation of soft tissues along the path of the suprapubic catheter suggesting infectious process without abscess. Prominent circumferential thickening of wall the urinary bladder suggesting the presence of acute cystitis. Right hydronephrosis grade 1 and hydroureter with hyperemia and thickening of wall of the renal pelvis and ureter suggesting ascending urinary tract infection without specific features of acute pyelonephritis. Electronically Signed: Severino Aguilar MD at 15:32 EDT Tel , Service support ,
[2018-11-19 13:48] LABS: Absolute Lymphocyte Count 2.17 X10^3/ul (0.83-4.51); Absolute Neutrophil Count 11.5 X10^3/uL (2.0-7.7); Basophil# 0.06 X10^3/uL; Basophil% 0.4 % (0-1); Eosinophils% 3.2 % (0-5); Hematocrit 34.7 % (37-47); Hemoglobin 11.5 g/dl (12.0-15.0); Lymphocyte # 2.17 X10^3/ul (4.0); Lymphocyte % 13.9 % (19-41); Mean Corp Hgb Conc 33.1 g/gl (32-36); Mean Corpuscular Hgb 28.9 pg (27.0-32.0); Mean Corpuscular Volume 87.2 fL (81-99); Mean Platelet Vol. 10.4 fl (6.2-12.0); Monocyte# 1.25 X10^3/uL; Neutrophil # 11.53 X10^3/uL (2.7-7.7); Neutrophil % 73.9 % (47-70); Platelet Count 288 K/mm3 (150-450); RBC Distribution Width SD 43.3 fl (35.1-43.9); Red Blood Count 3.98 M/mm3 (4.2-5.4); White Blood Count 15.6 K/mm3 (4.4-11.0)
[2018-11-19] MEDS: 0.9% Normal Saline 1,000 ML 150 ML IV (13:48)
[2018-11-19 13:49] LABS: POSITIVE COUNT NO; POSITIVE DIFFERENTIAL NO; POSITIVE MORPHOLOGY NO
[2018-11-19 13:58] LABS: Anion Gap 6 (5-15); BUN 6 mg/dL (7-18); BUN/Creat Ratio 6.8 RATIO (10-20); Chloride 104 mmol/L (98-107); Creatinine, Serum 0.88 mg/dL (0.55-1.02); EST Glomerular Filtration Rate 77 mL/min (>60); Est Glom Filt Rate - Afr Amer 93 mL/min (>60); Estimated Creatinine Clearance 69.23 ml/min; Glucose 184 mg/dL (74-106); Sodium Level 136 mmol/L (136-145)
[2018-11-19 15:13] VITALS: PULSE 74; RESP 18; O2SAT 100
[2018-11-19] MEDS: Morphine 4 MG/ML Syringe IV (15:17)
[2018-11-19] MEDS: Ondansetron 4 MG/2 ML Vial IV (15:17)
[2018-11-19 15:19] VITALS: BP 149/98; PULSE 79; RESP 15; O2SAT 99
--- NOTE | 2018-11-19 15:41 | ED.DCSUM_ITS ---
- ER Visit Summary Date of Service: 11/19/18 Chief Complaint: Wound check History of Present Illness: The patient is a 38 F who had a suprapubic catheter placed November 07 at [facility]. She has noted drainage around the site of the past 3 days. Dressing is needed to be changed 3 or more times a day. She reports subjective fever last night but nothing that was measured. Catheter was placed secondary to history of neurogenic bowel and bladder secondary to spina bifida. Physical Examination: Vital signs unremarkable. Patient is afebrile. Patient sitting upright in bed no acute distress. Heart is regular rate and rhythm. Lung sounds are clear. Abdomen is soft. Surgical site for superpubic catheter appears clean. Dressing is soaked with yellow drainage. I am not able to express further drainage at this time and do not palpate an abscess. Extremity examination is significant for a chronic left heel wound with clean edges. Test Results: CBC was a white count of 15.6 with 74% neutrophils. Hemoglobin 11.5. Chemistry studies significant for glucose of 184. CT abdomen pelvis with IV contrast reveals inflammation of the soft tissues along the path of the suprapubic catheter suggesting infectious process without focal abscess. Th ickening of the urinary bladder is noted. Emergency Department Course and Treatment: Patient was given IV fluids, morphine, Zofran here. Plan will be to treat her with Bactrim and Keflex. I will attempt to speak with her surgeon at [facility] to help arrange close follow-up. Treatment Plan: [] Disposition: Discharge Impression: Postop wound infection This note was generated with [employer] dictation software. It may contain incorrect words, spelling, and punctuation that were not noted in review of the chart prior to signing ED Disposition - Plan for ED Patient: Disposition: Home or Assisted Living Instructions: POST OP WOUND CHECK, Infection Prescriptions: Smz/Tmp Ds [Bactrim Ds] 1 tablet PO BID #20 tablet Cephalexin [Keflex] 500 mg PO Q6 #40 capsule Referrals: Will Shukla MD [Primary Care Provider] - Additional Instructions: Follow-up with Dr Sears.
[2018-11-19] MEDS: Smz/Tmp Ds Tablet 1 TABLET PO (16:19)
[2018-11-19] MEDS: Cephalexin 250 MG Capsule 500 MG PO (16:19)
[2018-11-19 16:34] VITALS: BP 102/52; PULSE 78; RESP 15; O2SAT 98
== END 2018-11-19 16:45 | disposition home or self-care (01) ==
PROVIDERS: Emergency Provider Emergency Medicine; Family Provider Family Medicine; PCP Family Medicine
DX: T81.41XA Infection following a procedure, superficial incisional surgical site, initial encounter (principal); Q05.9 Spina bifida, unspecified; E11.9 Type 2 diabetes mellitus without complications; Z98.84 Bariatric surgery status; K59.2 Neurogenic bowel, not elsewhere classified
CPT/HCPCS: 74177; 80048; 85025; 96361; 96374; 96375; 99283; J7030; Q9967; A4216; J2405

== ENCOUNTER 2018-11-23 18:24 | Emergency (ER) | payer MEDICARE, MEDICAID, SELFPAY ==
[2018-11-23 18:25] VITALS: BP 111/71; PULSE 71; RESP 19; TEMP 36.9; O2SAT 98; BMI 41.1
--- NOTE | 2018-11-23 19:20 | CT_ITS ---
STUDY: CT ABDOMEN AND PELVIS WITH CONTRAST REASON FOR EXAM: Female, 38 years old. Postoperative infection RADIATION DOSAGE (If Supplied By Facility): DLP = ( 2350.07 ) mGycm TECHNIQUE: Transaxial images were obtained from the dome of the diaphragm to the symphysis pubis without oral contrast. 100ML ml of Isovue 300 contrast was administered. Sagittal and coronal images were reconstructed. Individualized dose optimization techniques were used for this CT. COMPARISON: CT abdomen and pelvis November 19, 2018 FINDINGS: The visualized lung bases are clear. The visualized portions of the heart and pericardium are within normal limits. There are no calcified gallstones present. The liver is within normal limits. There are no suspicious hepatic lesions. The spleen is normal in size. The pancreas is within normal limits. The adrenal glands are within normal limits. There are no obstructing renal stones. Mild right-sided hydroureteronephrosis is present. Mild urothelial thickening is present. There are no focal renal lesions. Multiple right renal scars are present. A suprapubic catheter is in place. There is mild increased fat attenuation surrounding the catheter. No associated loculated fluid collections are present. Urinary bladder wall thickening with mild adjacent thickening is present. Normal visualized stomach. There is no bowel obstruction or inflammation. Prominent stool is present throughout the colon. Anterior abdominal mesh is in place. The aorta is normal in caliber. There is no abdominal or pelvic free air, free fluid, fluid collection or lymphadenopathy. There are no destructive osseous lesions. CT/Abdomen/Pelvis W IV Cont ONLY IMPRESSION: Mild right-sided hydroureteronephrosis with mild urothelial thickening as well as urinary bladder wall thickening with adjacent fat stranding. Correlate clinically for ascending infection. Suprapubic catheter with mild increased fat attenuation surrounding it. Consider cellulitis. No abscess. Right renal scarring with cortical volume loss. Prominent stool throughout the colon. Multiple right renal scars with cortical volume loss. Electronically Signed: Will Navarrete, at 20:50 EDT Tel , Service support ,
[2018-11-23] MEDS: HYDROmorphone 1 MG/ML Syringe 0.5 MG IV (19:33)
[2018-11-23] MEDS: 0.9% Normal Saline 1,000 ML 150 ML IV (19:33)
[2018-11-23] MEDS: Ondansetron 4 MG/2 ML Vial IV ×2 (19:33→22:37)
[2018-11-23 19:38] VITALS: PULSE 84; RESP 18; TEMP 36.9
[2018-11-23 19:38] LABS: Basophil# 0.04 X10^3/uL; Basophil% 0.3 % (0-1); Eosinophil# 0.45 X10^3/uL; Eosinophils% 2.9 % (0-5); Hematocrit 34.9 % (37-47); Hemoglobin 11.5 g/dl (12.0-15.0); Lymphocyte % 16.1 % (19-41); Mean Corpuscular Volume 88.1 fL (81-99); Monocyte# 1.47 X10^3/uL; Monocyte% 9.4 % (0-10); Neutrophil # 10.99 X10^3/uL (2.7-7.7); Neutrophil % 70.5 % (47-70); POSITIVE COUNT NO; POSITIVE DIFFERENTIAL NO; POSITIVE MORPHOLOGY NO; Platelet Count 329 K/mm3 (150-450); RBC Distribution Width CV 14.2 % (11.6-14.6); RBC Distribution Width SD 45.8 fl (35.1-43.9); Red Blood Count 3.96 M/mm3 (4.2-5.4); White Blood Count 15.6 K/mm3 (4.4-11.0)
[2018-11-23 19:51] LABS: Anion Gap 10 (5-15); BUN 8 mg/dL (7-18); Calcium,Total 9.1 mg/dL (8.5-10.1); Chloride 103 mmol/L (98-107); EST Glomerular Filtration Rate 67 mL/min (>60); Est Glom Filt Rate - Afr Amer 81 mL/min (>60); Estimated Creatinine Clearance 60.92 ml/min; Glucose 231 mg/dL (74-106); Potassium 3.9 mmol/L (3.5-5.1); Sodium Level 139 mmol/L (136-145)
[2018-11-23] MEDS: Morphine 4 MG/ML Syringe IV (22:37)
[2018-11-23 22:40] VITALS: BP 116/46; PULSE 77; PULSE 79; RESP 16; TEMP 36.6; O2SAT 99
[2018-11-23 22:48] LABS: Bacteria 0 SEEN /hpf (None Seen); Mucous, Urine 0 SEEN /hpf (<or=2+)
[2018-11-23 22:52] LABS: Color, Urine Yellow (Yellow); Glucose, Dipstick 50 mg/dl (Normal); Ketone-Dipstick Negative (Negative); Leukocyte Esterase-Dipstick 500 /ul (Negative); Nitrite-Dipstick Negative (Negative); Occult Blood-Urine 50 /ul (Negative); Protein-Dipstick 15 mg/dl (Negative); Urine Bilirubin Dipstick Negative (Negative); Urine Clarity Sl. Cloudy (Clear); Urine Urobilinogen Normal (Normal); Urine pH 6.5 (5.0 - 8.0)
[2018-11-23 23:03] LABS: Squamous Epithelial Cells - UA 0-5 SEEN /hpf (5-10)
[2018-11-23 23:05] VITALS: PULSE 84; RESP 16; TEMP 36.9; O2SAT 98
[2018-11-23 23:05] LABS: Red Blood Cells-Urine 0-5 SEEN /hpf (0-5)
[2018-11-23 23:07] LABS: Calcium Oxalate Crystals Ur RARE /hpf (<or=2+); White Blood Cells 5-10 SEEN /hpf (0-5)
--- NOTE | 2018-11-23 23:55 | ED.DCSUM_ITS ---
- ER Visit Summary Date of Service: 11/23/18 Chief Complaint: Possible surgical infection History of Present Illness: The patient is a 38 F with history of spina bifida. She had a suprapubic catheter placed November 07 at the [facility] with Dr. Sears. She has had increased pain and drainage from the wound site. She was seen in the ER on the started on Bactrim and Keflex for inflammation of the soft tissues along the path of her suprapubic catheter. There was no abscess identified. Patient states she continues to have significant pain. She is been taking Tylenol at home. She continues to complain of significant drainage from the wound. She denies fever. Physical Examination: Vital signs unremarkable. She is afebrile. Patient lying in bed no acute distress. She is nontoxic-appearing. Head and neck examination normal. Heart is regular rate and rhythm. Lung sounds are clear. Abdomen is soft with tenderness along her surgical suprapubic site. She has mild lower wound dehiscence. There is no surrounding cellulitis. There is a foul smell to the dressing with yellow drainage. There is no focal abscess. With palpation around the wound I do not note increased drainage. Test Results: CBC was white count of 15.6 which is unchanged compared to her prior. 70% neutrophils are noted. Chemistry studies significant for glucose of 231. Urinalysis shows 5-10 white cells with [address] abdomen pelvis with IV contrast reveals mild right hydro-ureteronephrosis. Mild bladder wall thickening with adjacent fat stranding is noted. Suprapubic catheter is noted with mild increased fat attenuation. No abscess noted. There is prominent stool throughout the colon. Emergency Department Course and Treatment: Patient was given morphine, Zofran, and IV fluids. I did review multiple past CAT scans dating back before her suprapubic catheter. She has always had right-sided hydroureteronephrosis noted. She has always had bladder wall thickening noted as well. At this time there is no sign of acute bladder infection. The inflammation along the suprapubic catheter site is improving. I did advise her that she has a large stool load and should be given a prescription for mag citrate. She will be given 10 tabs of [place] to help control pain. She is to follow-up with her surgeon at [facility]. Treatment Plan: [] Disposition: Discharge Impression: 1. Abdominal pain 2. Postop wound This note was generated with Nanapiation software. It may contain incorrect words, spelling, and punctuation that were not noted in review of the chart prior to signing ED Disposition - Plan for ED Patient: Disposition: Home or Assisted Living Instructions: POST OP WOUND CHECK, General, CONSTIPATION (Adult) Prescriptions: Magnesium Citrate [Citrate Of Magnesia] 150 ml PO Q6H PRN PRN #300 ml PRN Reason: Constipation Hydrocodone Bitart/Apap 5-325 [[place] 5MG-325MG] 1 tablet PO Q6H PRN PRN 3 Days #10 tablet PRN Reason: Pain Referrals: Will Shukla MD [Primary Care Provider] - Additional Instructions: FOllow-up with Dr Sears as soon as possible.
[2018-11-24 00:18] VITALS: BP 132/81; PULSE 84; RESP 16; O2SAT 99
== END 2018-11-24 00:20 | disposition home or self-care (01) ==
PROVIDERS: Emergency Provider Emergency Medicine; Family Provider Family Medicine; PCP Family Medicine
DX: T81.30XA Disruption of wound, unspecified, initial encounter (principal); N13.30 Unspecified hydronephrosis; Q05.9 Spina bifida, unspecified; E11.9 Type 2 diabetes mellitus without complications
CPT/HCPCS: 74177; 80048; 81001; 85025; 96361; 96374; 96375; 96376; 99283; J7030; Q9967; A4216; J2405

== ENCOUNTER 2018-11-28 19:32 | Inpatient (IN) | payer MEDICARE, MEDICAID, SELFPAY ==
[2018-11-28 19:33] VITALS: BP 114/70; PULSE 108; RESP 18; TEMP 37.7; O2SAT 98; BMI 40.2
--- NOTE | 2018-11-28 19:40 | EKG12_ITS ---
Test Reason : CP Blood Pressure : / mmHG Vent. Rate : 103 BPM Atrial Rate : 103 BPM P-R Int : 124 ms QRS Dur : 076 ms QT Int : 336 ms P-R-T Axes : 026 032 017 degrees QTc Int : 440 ms Sinus tachycardia Otherwise normal ECG Confirmed by ITZ FITZGERALD, ZACHARY ([id number]), technical writer and editor KRISTEN DOMINGUEZ ([id number]) on 12/07/2018 12:38:12 PM Referred By: Gen Butt Confirmed By:MADELEINE MOBLEY MD
--- NOTE | 2018-11-28 20:05 | RAD_ITS ---
STUDY: X-RAY CHEST REASON FOR EXAM: Female, 38 years old. Fever TECHNIQUE: Frontal and lateral views of the chest. COMPARISON: 10/23/2018 FINDINGS: The lungs are clear and expanded. There is no demonstrated pleural abnormality. Normal size heart. Normal mediastinum and cristiano. Normal visualized pulmonary arteries. Normal visualized aortic arch and descending thoracic aorta. Normal visualized thoracic spine. Normal visualized ribs, clavicles, and shoulders. There is no demonstrated abnormality of the visualized soft tissue structures of the upper abdomen. RAD/Chest PA and Lateral IMPRESSION: Normal x-ray examination of the chest. Electronically Signed: Ki Ballesteros MD at 20:28 EDT , Service support ,
[2018-11-28] MEDS: 0.9% Normal Saline 1,000 ML 50 ML IV (20:16)
[2018-11-28 20:18] VITALS: O2SAT 98
[2018-11-28 20:29] LABS: Lactic Acid 1.6 mmol/L (0.4-2.0)
[2018-11-28 20:43] LABS: Anion Gap 7 (5-15); BUN 8 mg/dL (7-18); BUN/Creat Ratio 6.8 RATIO (10-20); Chloride 102 mmol/L (98-107); Creatinine, Serum 1.17 mg/dL (0.55-1.02); EST Glomerular Filtration Rate 55 mL/min (>60); Est Glom Filt Rate - Afr Amer 67 mL/min (>60); Estimated Creatinine Clearance 52.07 ml/min; Glucose 264 mg/dL (74-106); Potassium 3.6 mmol/L (3.5-5.1); Sodium Level 133 mmol/L (136-145)
[2018-11-28] MEDS: 0.9% Normal Saline 1,000 ML 150 ML IV (20:54)
--- NOTE | 2018-11-28 20:54 | ED.RN ---
new order for NS @ 150 ml/hr. stop timed the 50 ml/hr to continue from same bag.
[2018-11-28 20:57] LABS: Mucous, Urine 0 SEEN /hpf (<or=2+)
[2018-11-28 20:58] LABS: Color, Urine Yellow (Yellow); Glucose, Dipstick 1000 mg/dl (Normal); Ketone-Dipstick 5 mg/dl (Negative); Leukocyte Esterase-Dipstick 500 /ul (Negative); Nitrite-Dipstick Negative (Negative); Occult Blood-Urine 150 /ul (Negative); Protein-Dipstick 100 mg/dl (Negative); Urine Clarity Cloudy (Clear); Urine Urobilinogen 4 mg/dl (Normal); Urine pH 6.5 (5.0 - 8.0)
[2018-11-28] MEDS: Ondansetron 4 MG/2 ML Vial IV (21:01)
[2018-11-28] MEDS: Morphine 4 MG/ML Syringe IV (21:01)
[2018-11-28 21:02] LABS: Urine Bilirubin Dipstick 1 mg/dL (Negative)
[2018-11-28 21:04] LABS: Bacteria 3+ /hpf (None Seen); Red Blood Cells-Urine 5-10 SEEN /hpf (0-5); Squamous Epithelial Cells - UA 5-10 SEEN /hpf (5-10); White Blood Cells 10-25 SEEN /hpf (0-5)
[2018-11-28 21:16] LABS: Absolute Lymphocyte Count 0.95 X10^3/ul (0.83-4.51); Absolute Neutrophil Count 25.9 X10^3/uL (2.0-7.7); Basophil# 0.02 X10^3/uL; Basophil% 0.1 % (0-1); Eosinophil# 0.11 X10^3/uL; Eosinophils% 0.4 % (0-5); Hematocrit 34.9 % (37-47); Hemoglobin 11.6 g/dl (12.0-15.0); Lymphocyte # 0.95 X10^3/ul (4.0); Lymphocyte % 3.4 % (19-41); Mean Corp Hgb Conc 33.2 g/gl (32-36); Mean Corpuscular Hgb 29.1 pg (27.0-32.0); Mean Corpuscular Volume 87.7 fL (81-99); Mean Platelet Vol. 10.5 fl (6.2-12.0); Monocyte% 2.9 % (0-10); Neutrophil # 25.86 X10^3/uL (2.7-7.7); Neutrophil % 92.7 % (47-70); Platelet Count 272 K/mm3 (150-450); RBC Distribution Width CV 14.3 % (11.6-14.6); RBC Distribution Width SD 45.7 fl (35.1-43.9); Red Blood Count 3.98 M/mm3 (4.2-5.4); White Blood Count 27.9 K/mm3 (4.4-11.0)
[2018-11-28 21:17] LABS: POSITIVE COUNT NO; POSITIVE DIFFERENTIAL YES; POSITIVE MORPHOLOGY NO
[2018-11-28 21:18] LABS: Differential Indicated SCAN CRITERIA MET
[2018-11-28 21:34] VITALS: BP 109/72; PULSE 93; RESP 16; TEMP 37.2; O2SAT 98
--- NOTE | 2018-11-28 21:36 | ED.DCSUM_ITS ---
- ER Visit Summary Date of Service: 11/28/18 Chief Complaint: [Fever History of Present Illness: The patient is a 38 F [presents with complaint of fever that started last evening. Patient has a history of a diabetic foot wound on her left heel. Patient noted redness to the left lower extremity today. Sam anand also had her suprapubic catheter replaced 3 days ago. Patient has history of diabetes as well as history of neurogenic bladder due to spina bifida. Patient has history of UTIs and history of cellulitis. He denies any abdominal pain. He said no vomiting or diarrhea. She denies any real cough.] Physical Examination: [HEENT-PERRLA, EOMI. Cranial nerves II through XII grossly intact. TMs clear. Mucous membranes moist. No adenopathy. Cardiovascular-regular rate and rhythm without murmur or ectopy Lungs-clear to auscultation, chest wall stable without crepitus or subcu emphysema Abdomen-normoactive bowel sounds, soft, nontender, no rebound or rigidity, no peritoneal signs. She has a suprapubic catheter in place with mall amount of wound dehiscence noted inferior to the catheter. Extremities-intact ?4, normal range of motion, normal pulses, atraumatic. Left foot-patient has a diabetic wound on her left heel that has some brownish drainage from it with some faint erythema around it. Patient also has a discrete cellulitis of the lower extremity from below the knee to about the ankle however it does not appear to be contiguous with the diabetic foot ulcer.] Test Results: [C BC with different change showed a white count of 20,000, hemoglobin 11.6, hematocrit 35, platelet 272. Chemistries unremarkable. BUN was 8 and creatinine 1.17. Urinalysis showed 500 leukocyte esterase and 1025 WBCs and +3 bacteria. Lactate was 1.6. Chest x-ray showed nothing acute.] Emergency Department Course and Treatment: [She was started on Unasyn and vancomycin.] Treatment Plan: [Admit] Disposition: [Admit] Impression: [Cellulitis left lower extremity UTI Sepsis Diabetic foot ulcer] This note was generated with about.me dictation software. It may contain incorrect words, spelling, and punctuation that were not noted in review of the chart prior to signing ED Disposition - Plan for ED Patient: Referrals: Will Shukla MD [Primary Care Provider] -
--- NOTE | 2018-11-28 21:37 | PCM.HP.STD ---
Problem List (1) Sepsis Status: Acute History of Present Illness Date of Admission: 11/28/18 Chief Complaint: rigors The patient is a 38 year old F with a significant history of type 2 diabetes; spina bifida of complicated neurogenic bladder status post suprapubic catheter who presented to the emergency department with rigors. Her symptoms started a day before presentation with rigors and malaise. On day of presentation she developed a fever. Highest temperature was 101.5. Also she had a chest pain that went to her back. She was attributing his symptoms to probable infection of her stoma where her suprapubic catheter is inserted. She reported that in the past week she has been treated at our ED ([facility]) with antibiotics for probable stoma site infection; and also was treated for constipation. Because she noticed some gaping at her stoma site she went to [facility] where the suprapubic catheter was originally placed. She was told that probably she has allergic reaction from latex so her suprapubic cathere was was changed. Patient reports pain and bloody drainage from her suprapubic catheter. At the emergency department because she complained of chest pain, EKG was obtained. EKG leads was placed on her left leg she noticed that her left leg is red. She thinks that her left leg is red from infection that emanated from a wound on her left heel. Of note the surgery for suprapubic catheter insertion was done on November 07, 2018. Past Medical History Past Medical History (Chronic Problems): Chronic Problems (Last Reviewed 11/29/18 @ 06:10 by Gen Butt MD) Constipation (Chronic) Neurogenic bowel (Chronic) Neurogenic bladder (Chronic) Chronic back pain (Chronic) History of migraine (Chronic) Depression (Chronic) 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 Will follow, no need yet for cysto retros etc. But this may change in future 13 Sept Re-admitted consult dictated Medical History: Medical History (Last Reviewed 11/29/18 @ 08:01 by Gen Butt MD) Neurogenic bowel (Chronic) K59.2 Neurogenic bladder (Chronic) N31.9 Chronic back pain (Chronic) M54.9, G89.29 History of migraine (Chronic) Z86.69 Depression (Chronic) F32.9 Spina bifida aperta of lumbar spine (Chronic) Q05.7 s/p surgery x 2 weakness and numbness in legs neurogenic bladder and frequent UTIs Non-compliance (Chronic) Z91.19 Morbid obesity with BMI of 40.0-44.9, adult (Chronic) E66.01, Z68.41 Diabetes mellitus, type II (Chronic) E11.9 not well controlled Hydronephrosis of right kidney (Chronic) N13.30 Consult dictated, For now Treat UTI and make sure pt does self cath. Will follow, no need yet for cysto retros etc. But this may change in future 13 Sept Re-admitted consult dictated UTI (urinary tract infection) (Resolved) N39.0 Allergies mushroom Allergy (Verified 11/28/18 19:32) Anaphylaxis peanut Allergy (Verified 11/28/18 19:32) Anaphylaxis Gadolinium-MRI Contrast Medium Adverse Reaction (Verified 11/28/18 19:32) Vomiting Home Medications: Ambulatory Orders Medication Instructions Recorded metFORMIN (XR) [Glucophage Xr] 1,000 mg PO BID 06/19/16 Atorvastatin Calcium [Lipitor] 10 mg PO QHS 11/07/17 Pseudoephedrine HCl [Sudogest] 30 mg PO Q6H PRN PRN 01/21/18 Pregabalin [Lyrica] 75 mg PO DAILY 02/25/18 Buspirone HCl 15 mg PO BID 04/11/18 Polyethylene Glycol 3350 [Miralax] 17 gm PO DAILY PRN 04/13/18 Liraglutide [Victoza] 1.2 mg SQ DAILY 07/03/18 Duloxetine HCl 60 mg PO DAILY 08/28/18 Furosemide [Lasix] 20 mg PO DAILY@1700 08/28/18 Furosemide [Lasix] 40 mg PO DAILY 08/28/18 Loratadine [Claritin] 10 mg PO DAILY 08/28/18 Propranolol HCl 10 mg PO DAILY 08/28/18 Oxybutynin [Ditropan] 15 mg PO DAILY 10/23/18 Surgical History: Surgical History (Last Reviewed 11/29/18 @ 08:01 by Gen Butt MD) History of cholecystectomy Z90.49 History of dilation and curettage Z98.890 History of spinal surgery Z98.890 Hx of foot surgery Z98.890 Hx of ventral hernia repair Z98.890, Z87.19 Status post gastric surgery Z98.890 Surgical History: cholecystectomy, - - D&C, lumbar back surgery x2, foot surgery x2, abdominal stoma, ventral hernia repair. 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 Lives: With Family Smoking Status: Never smoker Alcohol: None - *Family History Maternal Family History: Family History (Last Reviewed 11/29/18 @ 08:01 by Gen Butt MD) Mother CVA (cerebral vascular accident) Thyroid disorder Diabetes Hypertension History Items: Cancer, Diabetes, Hypertension, Stroke Paternal Family History: Family History (Last Reviewed 11/29/18 @ 08:01 by Gen Butt MD) Mother CVA (cerebral vascular accident) Thyroid disorder Diabetes Hypertension Sibling Family History: Family History (Last Reviewed 11/29/18 @ 08:01 by Gen Butt MD) Mother CVA (cerebral vascular accident) Thyroid disorder Diabetes Hypertension Review of Systems Constitutional: Reports: Chills, Fever, Malaise. Denies: Weight Change HEENT: Denies: Head Aches, Sinus Congestion, Sinus Drainage Cardiovascular: Reports: Chest Tightness. Denies: Chest Pain, Palpitations Respiratory: Denies: Cough, Shortness of breath at rest, Sputum production Gastrointestinal: Denies: Abdominal Pain, Nausea, Vomiting Genitourinary: Denies: Dysuria Musculoskeletal: Denies: Joint Pain, Joint Tenderness Skin: Denies: Rash, Wounds Neurological: Denies: Numbness, Tingling, Focal weakness Psychiatric: Denies: Anxiety, Depression, Homicidal Ideations, Suicidal Ideations Hematologic/ Lymphatic: Denies: Easy Bruising, Easy Bleeding VTE Information - Inpt Only VTE Present on Admission: No VTE Mechan Device Prophylaxis: None VTE Pharm Prophylaxis ordered?: Yes Patient Problems: Active and Suspected Problems (Last Reviewed 11/29/18 @ 06:10 by Gen Butt MD) Sepsis (Acute) - Physical Exam General: Alert, Oriented x3, Cooperative HEENT: Atraumatic, PERRLA, EOMI, Normocephalic Neck: Supple, No JVD, Negative Carotid Bruits Lungs: Clear to auscultation, Normal air movement Cardiovascular: Regular rate, No murmurs, Tachycardic Abdomen: Bowel Sounds Present, Soft, Non Tender Extremities: No edema, Capillary Refill Less than 3 Seconds Skin: - - Redness of left mcdonald; left heel wound, tender. Tenderness of suprapubic area with yellowish serous drainage Musculoskeletal: No Tenderness to Palpation of Joints or Extremities Neurological: Cranial nerves II-XII grossly intact Psych/Mental Status: Normal Affect, Appropriate Vital Signs Temp Pulse Resp BP Pulse Ox 99 F 93 16 109/72 98 11/28/18 21:34 11/28/18 21:34 11/28/18 21:34 11/28/18 21:34 11/28/18 21:34 Oxygen Delivery Method Room Air Weight: 99.79 kg Body Mass Index (BMI) 40.2 Finger Stick Blood Glucose 187 Laboratory Tests Past 24 Hrs 11/28/18 11/28/18 11/28/18 19:55 19:55 19:55 WBC 27.9 H RBC 3.98 L Hgb 11.6 L Hct 34.9 L MCV 87.7 MCH 29.1 MCHC 33.2 RDW 14.3 RDW Differential 45.7 H Plt Count 272 MPV 10.5 Immature Gran % (Auto) 0.500 Neut % (Auto) 92.7 H Lymph % (Auto) 3.4 L [place] % (Auto) 2.9 Eos % (Auto) 0.4 Baso % (Auto) 0.1 Absolute Neuts (auto) 25.9 H Absolute Lymphs (auto) 0.95 Total Counted Pending Sodium 133 L Potassium 3.6 Chloride 102 Carbon Dioxide 24.0 Anion Gap 7 BUN 8 Creatinine 1.17 H Estim Creat Clear Calc 52.07 Est GFR (MDRD) Af Amer 67 Est GFR (MDRD) Non-Af 55 L BUN/Creatinine Ratio 6.8 L Glucose 264 H Lactic Acid 1.6 Calcium 9.0 Urine Color Urine Clarity Urine pH Ur Specific [place] Urine Protein Urine Glucose (UA) Urine Ketones Urine Occult Blood Urine Nitrite Urine Bilirubin Urine Urobilinogen Ur Leukocyte Esterase Urine RBC Urine WBC Ur Squamous Epith Cells Urine Bacteria Urine Mucus 11/28/18 20:45 WBC RBC Hgb Hct MCV MCH MCHC RDW RDW Differential Plt Count MPV Immature Gran % (Auto) Neut % (Auto) Lymph % (Auto) [place] % (Auto) Eos % (Auto) Baso % (Auto) Absolute Neuts (auto) Absolute Lymphs (auto) Total Counted Sodium Potassium Chloride Carbon Dioxide Anion Gap BUN Creatinine Estim Creat Clear Calc Est GFR (MDRD) Af Amer Est GFR (MDRD) Non-Af BUN/Creatinine Ratio Glucose Lactic Acid Calcium Urine Color Yellow Urine Clarity Cloudy Urine pH 6.5 Ur Specific [place] 1.010 Urine Protein 100 H Urine Glucose (UA) 1000 H Urine Ketones 5 H Urine Occult Blood 150 H Urine Nitrite Negative Urine Bilirubin 1 H Urine Urobilinogen 4 H Ur Leukocyte Esterase 500 H Urine RBC 5-10 SEEN Urine WBC 10-25 SEEN Ur Squamous Epith Cells 5-10 SEEN Urine Bacteria 3+ Urine Mucus 0 SEEN Assessment/Plan All Active Problems (Last Reviewed 11/29/18 @ 06:10 by Gen Butt MD) Sepsis due to cellulitis (Acute) Decubitus ulcer of left heel (Acute) Normochromic normocytic anemia (Acute) Diabetic ulcer of left heel with fat layer exposed (Acute) Type 2 diabetes mellitus with diabetic polyneuropathy (Acute) Delayed wound healing (Acute) Lower extremity edema (Acute) Chest pain (Acute) Sepsis (Acute) UTI (urinary tract infection) (Resolved) The patient is a 38 year old F with a significant history of type 2 diabetes; spina bifida of complicated neurogenic bladder status post suprapubic catheter who presented to the emergency department with rigors; fever; stoma site pain and drainage; and was found to have erythema of the left leg consistent with sepsis secondary to probable cellulitis; stoma site infection; ;diabetic wound infection of the left heel; urinary tract infection. Sepsis Patient with much maximum temperature of 101.5 at home; with white count of 27.9; and with tachycardia with heart rate of 93 [id number] Source of infection: Probable stoma site of suprapubic catheter; left leg cellulitis; left heel diabetic wound infection; urinary tract infection Blood cultures were obtained in the emergency department. Urine culture ordered Lactic acid was unremarkable Received vancomycin and Unasyn at the emergency department. We will continue patient on vancomycin. Will start patient on Zosyn to cover probable urinary tract infection. We will consult infectious disease to optimize management. Of note in the past patient saw Dr. Alex. Patient has also seen Dr. Jose Faria at wound center. Depression/anxiety Buspirone and Cymbalta continued Diabetes mellitus On presentation her blood glucose was not within goal Family to bring Victoza from home. Will discontinue home metformin because of risk of lactic acidosis. Accu-Chek q. before meals at bedtime with correction scale insulin ordered. Neuropathy Pregabalin continued Allergies Claritin continued. Psuedoephrine prn continued Migraines and dysrhythmia Propranolol continue. Of note patient is septic and is at risk of hypotension. Parameters placed on the low. Bilateral lower leg edema: Lasix continued Code Visit Inpatient E&M: 35801 Init Hosp L3
[2018-11-28 21:47] LABS: Platelet Estimate ADEQUATE (ADEQ); Platelet Morphology LARGE; Red Cell Morphology NORM C+C NORMAL (NORM C&C)
[2018-11-28 22:59] VITALS: BMI 41.5; BMI 41.6
[2018-11-28 23:01] VITALS: BP 118/55; PULSE 88; RESP 16; TEMP 37.2; O2SAT 100
[2018-11-28 23:20] VITALS: O2SAT 98
[2018-11-28] MEDS: Morphine 2 MG/ML Syringe IV (23:42)
[2018-11-28] MEDS: Insulin Lispro 100 UNIT/ML INSULN.PEN SC (23:43)
[2018-11-28] MEDS: Atorvastatin Calcium 10 MG Tablet PO (23:43)
[2018-11-29] VITALS (15 sets, daily range): BP systolic 94–113; BP diastolic 52–71; PULSE 73–91; RESP 14–18; TEMP 36.7–37.3; O2SAT 95–99
[2018-11-29] MEDS: busPIRone 15 MG TABLET PO ×3 (00:06→22:30)
[2018-11-29 00:15] LABS: Bedside Glucose 156 mg/dL (70-110)
--- NOTE | 2018-11-29 02:21 | PCM.RX.CS ---
Consult Pharmacy has been consulted to manage selected antiobiotic: Vancomycin Type of Consult: New start Suspected Infection: Sepsis Prior Doses of Antibiotics Received/Current Regimen: Medications Vancomycin HCl (Vancomycin) 1,000 mg in 200 mls @ 200 mls/hr IV Q12H DERIAN to begin 11/29/18 0930 Discontinued Medications Vancomycin HCl 1,500 mg/ (Sodium Chloride) 530 mls @ 250 mls/hr IV X1 ONE Stop: 11/28/18 23:07 Last Admin: 11/28/18 21:30 Dose: 250 mls/hr Documented by: Labs: Sodium 133 mmol/L (136-145) L 11/28/18 19:55 Potassium 3.6 mmol/L (3.5-5.1) 11/28/18 19:55 Chloride 102 mmol/L (98-107) 11/28/18 19:55 Carbon Dioxide 24.0 mmol/L (21.0-32.0) 11/28/18 19:55 7 (5-15) 11/28/18 19:55 BUN 8 mg/dL (7-18) 11/28/18 19:55 1.17 mg/dL (0.55-1.02) H 11/28/18 19:55 Est GFR (MDRD) Af Amer 67 mL/min (>60) 11/28/18 19:55 Est GFR (MDRD) Non-Af 55 mL/min (>60) L 11/28/18 19:55 6.8 RATIO (10-20) L 11/28/18 19:55 Glucose 264 mg/dL (74-106) H 11/28/18 19:55 Weight used for dosin.1 kg Estimated Creatinine Clearance: 52.07 Goal Trough: 15-20 mcg/mL Pharmacy Plan for Drug Dosing: Pharmacy Service will continue to monitor and adjust dosing as required. Follow-Up Labs: Trough Vancomycin - draw 30 minutes before dose due Labs to be done on [date and time ordered]: 11/30/18 0900
[2018-11-29] MEDS: Insulin Lispro 100 UNIT/ML INSULN.PEN SC ×5 (03:18→22:37)
[2018-11-29] MEDS: oxyCODONE 5 MG Tablet PO ×4 (03:18→23:20)
[2018-11-29 03:30] LABS: Bedside Glucose 178 mg/dL (70-110)
[2018-11-29 06:34] LABS: Hematocrit 32.5 % (37-47); Hemoglobin 10.5 g/dl (12.0-15.0); Mean Corp Hgb Conc 32.3 g/gl (32-36); Mean Corpuscular Hgb 28.6 pg (27.0-32.0); Mean Corpuscular Volume 88.6 fL (81-99); Mean Platelet Vol. 10.3 fl (6.2-12.0); Platelet Count 212 K/mm3 (150-450); RBC Distribution Width CV 14.4 % (11.6-14.6); RBC Distribution Width SD 46.9 fl (35.1-43.9); Red Blood Count 3.67 M/mm3 (4.2-5.4); White Blood Count 19.4 K/mm3 (4.4-11.0)
[2018-11-29 06:36] LABS: Scan Indicated on CBC? Y/N NO
[2018-11-29 06:51] LABS: Anion Gap 9 (5-15); BUN 10 mg/dL (7-18); BUN/Creat Ratio 10.4 RATIO (10-20); Calcium,Total 8.2 mg/dL (8.5-10.1); Chloride 107 mmol/L (98-107); Creatinine, Serum 0.96 mg/dL (0.55-1.02); EST Glomerular Filtration Rate 70 mL/min (>60); Est Glom Filt Rate - Afr Amer 84 mL/min (>60); Estimated Creatinine Clearance 63.46 ml/min; Glucose 183 mg/dL (74-106); Potassium 4.1 mmol/L (3.5-5.1); Sodium Level 139 mmol/L (136-145)
[2018-11-29] MEDS: DULoxetine Hcl 60 MG Capsule PO (08:22)
[2018-11-29] MEDS: Loratadine 10 MG Tablet PO (08:22)
[2018-11-29] MEDS: Furosemide 40 MG Tablet PO (08:23)
[2018-11-29] MEDS: Propranolol 10 MG Tablet PO (08:23)
[2018-11-29] MEDS: Enoxaparin 40 MG/0.4 ML Syringe SC (08:23)
[2018-11-29 08:30] LABS: Bedside Glucose 160 mg/dL (70-110)
[2018-11-29] MEDS: Pregabalin 75 MG Capsule PO (08:30)
[2018-11-29] MEDS: Vancomycin IV 1,000 MG/200 ML BAG 200 MG IV ×2 (09:16→22:32)
[2018-11-29 11:20] LABS: Bedside Glucose 194 mg/dL (70-110)
[2018-11-29 11:25] LABS: Bedside Glucose 250 mg/dL (70-110)
[2018-11-29] MEDS: Morphine 2 MG/ML Syringe IV ×2 (13:33→18:29)
--- NOTE | 2018-11-29 14:14 | PN_ITS ---
Patient Problems: Active and Suspected Problems (Last Reviewed 11/29/18 @ 08:01 by Gen Butt MD) Sepsis (Acute) Subjective: The patient has a history of spina bifid and was born with a dimple/fatty lump and during early chart was spina bifid aperta was diagnosed. She had 2 lumbar surgeries. Patient has suprapubic cystostomy. There is cellulitis with purulent discharge, tenderness and erythema around the stoma. Left leg is swollen, tender and erythematous consistent with cellulitis. She was last admitted in September 2018 for chest pain and stress test was normal. She has chronic left heel ulcer secondary to diabetes/peripheral neuropathy/spina bifida Vitals/I&O's: Vital Signs Temp Pulse Resp BP Pulse Ox 98.1 F 84 18 104/67 95 11/29/18 08:05 11/29/18 11:13 11/29/18 08:05 11/29/18 08:05 11/29/18 08:05 Oxygen Delivery Method Room Air Weight: 227 lb 4.745 oz Body Mass Index (BMI) 41.5 Finger Stick Blood Glucose 187 Intake and Output for Last 24 Hours 11/27/18 11/28/18 11/29/18 23:59 23:59 23:59 Intake Total 1224 / 1224 Output Total 1000 / 1000 Balance 224 / 224 General: Alert, Oriented x3, Cooperative HEENT: Atraumatic, PERRLA, EOMI, Normocephalic Neck: Supple, No JVD, Negative Carotid Bruits Lungs: Clear to auscultation, Diminished - Air entry is diminished in bilateral lung bases. Cardiovascular: Regular rate, Regular Rhythm, Normal S1, Normal S2, No murmurs Abdomen: Bowel Sounds Present, Soft, Non-Distended, - - Tenderness around the suprapubic urostomy. Purulent discharge along with tenderness, erythema and mild induration. Extremities: No edema, Capillary Refill Less than 3 Seconds Skin: Ulcer/ Wound - Left heel, chronic in nature. Dressing present., Rash Present - Redness, tenderness, induration of the left leg consistent with cellulitis Musculoskeletal: No Tenderness to Palpation of Joints or Extremities Neurological: Cranial nerves II-XII grossly intact, Deep Tendon Reflexes 2+/4 and Symmetrical, Neuro grossly intact, - - Left leg is more weaker than right leg. Psych/Mental Status: Normal Affect, Appropriate Laboratory Results 11/28/18 19:55: Lactic Acid 1.6 11/28/18 19:55: WBC 27.9 H, RBC 3.98 L, Hgb 11.6 L, Hct 34.9 L, MCV 87.7, MCH 29.1, MCHC 33.2, RDW 14.3, RDW Differential 45.7 H, Plt Count 272, MPV 10.5, Immature Gran % (Auto) 0.500, Neut % (Auto) 92.7 H, Lymph % (Auto) 3.4 L, [place] % (Auto) 2.9, Eos % (Auto) 0.4, Baso % (Auto) 0.1, Absolute Neuts (auto) 25.9 H, Absolute Lymphs (auto) 0.95, Total Counted Not Reportable, Platelet Estimate ADEQUATE, Plt Morphology Comment LARGE, RBC Morphology NORM C+C 11/28/18 19:55: Sodium 133 L, Potassium 3.6, Chloride 102, Carbon Dioxide 24.0, Anion Gap 7, BUN 8, Creatinine 1.17 H, Estim Creat Clear Calc 52.07, Est GFR (MDRD) Af Amer 67, Est GFR (MDRD) Non-Af 55 L, BUN/Creatinine Ratio 6.8 L, Glucose 264 H, Calcium 9.0 11/28/18 20:45: Urine Color Yellow, Urine Clarity Cloudy, Urine pH 6.5, Ur Specific [place] 1.010, Urine Protein 100 H, Urine Glucose (UA) 1000 H, Urine Ketones 5 H, Urine Occult Blood 150 H, Urine Nitrite Negative, Urine Bilirubin 1 H, Urine Urobilinogen 4 H, Ur Leukocyte Esterase 500 H, Urine RBC 5-10 SEEN, Urine WBC 10-25 SEEN, Ur Squamous Epith Cells 5-10 SEEN, Urine Bacteria 3+, Urine Mucus 0 SEEN 11/28/18 23:25: POC Glucose 156 H 11/29/18 03:10: POC Glucose 178 H 11/29/18 05:20: WBC 19.4 H, RBC 3.67 L, Hgb 10.5 L, Hct 32.5 L, MCV 88.6, MCH 28.6, MCHC 32.3, RDW 14.4, RDW Differential 46.9 H, Plt Count 212, MPV 10.3 11/29/18 05:20: Sodium 139, Potassium 4.1, Chloride 107, Carbon Dioxide 23.0, Anion Gap 9, BUN 10, Creatinine 0.96, Estim Creat Clear Calc 63.46, Est GFR (MDRD) Af Amer 84, Est GFR (MDRD) Non-Af 70, BUN/Creatinine Ratio 10.4, Glucose 183 H, Calcium 8.2 L 11/29/18 06:42: POC Glucose 194 H 11/29/18 08:07: POC Glucose 160 H 11/29/18 11:17: POC Glucose 250 H Current Medications Acetaminophen (Tylenol) 650 mg PO Q6H PRN PRN PRN Reason: Mild Pain (1-3)/Temp > 100.7 F Atorvastatin Calcium (Lipitor) 10 mg PO QHS [facility] Last Admin: 11/28/18 23:43 Dose: 10 mg Documented by: Buspirone HCl (Buspar) 15 mg PO BID [facility] Last Admin: 11/29/18 08:22 Dose: 15 mg Documented by: Dextrose (D50w Syringe) 0 gm IV X1 PRN; Protocol PRN Reason: Hypoglycemia Duloxetine HCl (Cymbalta) 60 mg PO DAILY [facility] Last Admin: 11/29/18 08:22 Dose: 60 mg Documented by: Enoxaparin Sodium (Lovenox) 40 mg SC DAILY@1000 [facility] Last Admin: 11/29/18 08:23 Dose: 40 mg Documented by: Furosemide (Lasix) 20 mg PO DAILY@1700 [facility] Furosemide (Lasix) 40 mg PO DAILY [facility] Last Admin: 11/29/18 08:23 Dose: 40 mg Documented by: Glucagon () 1 mg IM .X1 PRN PRN Reason: Hypoglycemia Vancomycin IV Pharmacy to Dose (1,000 ea/ Sodium Chloride) 500 mls @ 250 mls/hr IV PRN PRN; Protocol Sodium Chloride () 250 mls @ 15 mls/hr IV .[id number] PRN PRN Reason: SALINE FLUSH Vancomycin HCl (Vancomycin) 1,000 mg in 200 mls @ 200 mls/hr IV Q12H [facility] Last Admin: 11/29/18 09:16 Dose: 200 mls/hr Documented by: Piperacillin Sod/Tazobactam (Sod 3.375 gm/ Sodium Chloride) 50 mls @ 100 mls/hr IV Q6 [facility] Insulin Human Lispro (Humalog Kwikpen (Bkc)) 0 unit SC ACHS & 3AM DERIAN; Protocol Last Admin: 11/29/18 11:19 Dose: 4 unit Documented by: Loratadine (Claritin) 10 mg PO DAILY [facility] Last Admin: 11/29/18 08:22 Dose: 10 mg Documented by: Melatonin (Melatonin) 3 mg PO QHS PRN PRN PRN Reason: INSOMNIA Morphine Sulfate () 2 mg IV Q3H PRN PRN PRN Reason: Severe pain (7-10/10) Last Admin: 11/29/18 13:33 Dose: 2 mg Documented by: Ondansetron HCl (Zofran) 4 mg IV Q8H PRN PRN PRN Reason: NAUSEA/VOMITING Oxycodone HCl (Oxyir) 5 mg PO Q4H PRN PRN PRN Reason: Moderate Pain (4-6/10) Last Admin: 11/29/18 08:30 Dose: 5 mg Documented by: Polyethylene Glycol (Miralax) 17 gm PO DAILY PRN PRN Reason: Constipation Pregabalin (Lyrica) 75 mg PO DAILY [facility] Last Admin: 11/29/18 08:30 Dose: 75 mg Documented by: Propranolol HCl (Inderal) 10 mg PO DAILY [facility] Last Admin: 11/29/18 08:23 Dose: 10 mg Documented by: Pseudoephedrine HCl (Sudafed) 30 mg PO Q6H PRN PRN PRN Reason: CONGESTION Sodium Chloride () 10 - 40 ml IV UD PRN PRN Reason: SALINE FLUSH Medical Necessity - Tobacco Use Smoking Status: Never smoker Assessment/Plan All Active Problems (Last Reviewed 11/29/18 @ 08:01 by Gen Butt MD) Sepsis due to cellulitis (Acute) Decubitus ulcer of left heel (Acute) Normochromic normocytic anemia (Acute) Diabetic ulcer of left heel with fat layer exposed (Acute) Type 2 diabetes mellitus with diabetic polyneuropathy (Acute) Delayed wound healing (Acute) Lower extremity edema (Acute) Chest pain (Acute) Sepsis (Acute) UTI (urinary tract infection) (Resolved) The patient is a 38 year old F with a significant history of type 2 diabetes; spina bifida of complicated neurogenic bladder status post suprapubic catheter who presented to the emergency department with rigors; fever; stoma site pain and drainage; and was found to have erythema of the left leg consistent with sepsis secondary to probable cellulitis; stoma site infection; ;diabetic wound infection of the left heel; urinary tract infection. 1 sepsis (T1 100.5 Fahrenheit at home, secondary to left leg cellulitis and peritubal suprapubic cystostomy: Sepsis Patient with much maximum temperature of 101.5 at home; tachycardia, 108.8, leukocytosis white count of 27.9) secondary to left leg cellulitis with chronic nonhealing ulcer and stoma site cellulitis of suprapubic catheter, possible UTI/colonization Follow blood cultures x2 and urine culture ordered in ED. Patient is started on vancomycin and Zosyn in ED. ID and podiatry consult. Received vancomycin and Unasyn at the emergency department. We will continue patient on vancomycin. Will start patient on Zosyn to cover probable urinary tract infection. We will consult infectious disease to optimize management. Of note in the past patient saw Dr. Alex. Stranner consult to Dr. Guo/Dr. Faria. 2. Depression/anxiety Buspirone and Cymbalta continued 3. Diabetes mellitus, uncontrolled: Glucose is between 1 56-250. Victoza is not formulary here, therefore held. Accu-Chek before meals and at bedtime and cover with Humalog sliding scale. On presentation her blood glucose was not within goal Family to bring Victoza from home. Will discontinue home metformin because of risk of lactic acidosis. Accu-Chek q. before meals at bedtime with correction scale insulin. On Lantus 10 units of nightly daily. Neuropathy Pregabalin continued Allergies Claritin continued. Migraines and dysrhythmia Propranolol continue holding parameters if patient gets hypotensive. Bilateral lower leg edema: Lasix continued Code Visit Inpatient E&M: 41536 [facility] Hosp L3
[2018-11-29 16:56] LABS: Bedside Glucose 202 mg/dL (70-110)
--- NOTE | 2018-11-29 17:04 | NURSING ---
report given to abner gomez on ms3
[2018-11-29] MEDS: 0.9% NaCl Peripheral Flush Adult/Peds IV (18:29)
[2018-11-29] MEDS: Atorvastatin Calcium 10 MG Tablet PO (22:30)
[2018-11-29 22:45] LABS: Bedside Glucose 172 mg/dL (70-110)
[2018-11-30] VITALS (11 sets, daily range): BP systolic 111–116; BP diastolic 60–70; PULSE 67–80; RESP 15–18; TEMP 36.1–36.9; O2SAT 95–99
[2018-11-30] MEDS: Insulin Lispro 100 UNIT/ML INSULN.PEN SC ×4 (02:57→21:56)
[2018-11-30 03:05] LABS: Bedside Glucose 167 mg/dL (70-110)
[2018-11-30 06:27] LABS: Absolute Neutrophil Count 8.7 X10^3/uL (2.0-7.7); Basophil# 0.04 X10^3/uL; Basophil% 0.3 % (0-1); Eosinophil# 0.47 X10^3/uL; Eosinophils% 3.8 % (0-5); Hemoglobin 10.3 g/dl (12.0-15.0); Lymphocyte % 15.4 % (19-41); Mean Corp Hgb Conc 32.2 g/gl (32-36); Mean Corpuscular Hgb 28.5 pg (27.0-32.0); Mean Corpuscular Volume 88.6 fL (81-99); Mean Platelet Vol. 10.7 fl (6.2-12.0); Monocyte# 1.13 X10^3/uL; Monocyte% 9.2 % (0-10); Neutrophil # 8.65 X10^3/uL (2.7-7.7); Neutrophil % 70.3 % (47-70); Platelet Count 216 K/mm3 (150-450); RBC Distribution Width CV 14.4 % (11.6-14.6); RBC Distribution Width SD 46.9 fl (35.1-43.9); Red Blood Count 3.61 M/mm3 (4.2-5.4); White Blood Count 12.3 K/mm3 (4.4-11.0)
[2018-11-30 06:29] LABS: Differential Indicated SCAN CRITERIA MET; POSITIVE COUNT NO; POSITIVE DIFFERENTIAL NO; POSITIVE MORPHOLOGY YES
[2018-11-30 06:45] LABS: Bedside Glucose 158 mg/dL (70-110)
[2018-11-30 06:47] LABS: ALB/GLOB Ratio 0.6 RATIO (0.9-2.4); AST(SGOT) 38 U/L (15-37); Alanine Aminotransfer ALT/SGPT 44 U/L (13-56); Albumin, Serum 2.5 g/dL (3.2-5.0); Alkaline Phosphatase 117 U/L (45-117); Anion Gap 9 (5-15); BUN 14 mg/dL (7-18); BUN/Creat Ratio 12.4 RATIO (10-20); Calcium,Total 8.8 mg/dL (8.5-10.1); Chloride 106 mmol/L (98-107); Creatinine, Serum 1.13 mg/dL (0.55-1.02); EST Glomerular Filtration Rate 58 mL/min (>60); Est Glom Filt Rate - Afr Amer 70 mL/min (>60); Estimated Creatinine Clearance 53.91 ml/min; Globulin 4.4 g/dL (2.2-4.2); Glucose 171 mg/dL (74-106); Protein, Total 6.9 g/dL (6.4-8.2); Sodium Level 139 mmol/L (136-145)
--- NOTE | 2018-11-30 08:13 | NURSING ---
wound photo: around suprapubic catheter abdomen
--- NOTE | 2018-11-30 08:14 | NURSING ---
wound photo: left heel
--- NOTE | 2018-11-30 08:14 | NURSING ---
skin photo: left lower leg
[2018-11-30 08:46] LABS: Bedside Glucose 160 mg/dL (70-110)
--- NOTE | 2018-11-30 09:18 | PCM.PN.HOSP ---
Patient Problems: Active and Suspected Problems (Last Reviewed 11/29/18 @ 08:01 by Gen Butt MD) Sepsis (Acute) Subjective: Patient left leg dressing was changed. Rash has improved. Wound photo reviewed. Discussed with Hilda. Patient has not moved her bowels since admission. She further said she usually moves bowel in 1 to 2 weeks and her at the time in 1 month due to spina bifida. On MiraLAX 17 g twice daily. Senna S2 tablets twice daily. Still complaining of pain suprapubic cystostomy tube Vitals/I&O's: Vital Signs Temp Pulse Resp BP Pulse Ox 97.7 F L 71 15 112/70 98 11/30/18 04:45 11/30/18 04:53 11/30/18 04:45 11/30/18 04:45 11/30/18 04:45 Oxygen Delivery Method Room Air Weight: 227 lb 4.745 oz Body Mass Index (BMI) 41.5 Finger Stick Blood Glucose 187 Intake and Output for Last 24 Hours 11/28/18 11/29/18 11/30/18 23:59 23:59 23:59 Intake Total 1484 / 1907 707 / 707 Output Total 1250 / 1600 1150 / 1150 Balance 234 / 307 -443 / -443 General: Alert, Oriented x3, Cooperative HEENT: Atraumatic, PERRLA, EOMI, Normocephalic Neck: Supple, No JVD, Negative Carotid Bruits Lungs: Clear to auscultation, No rhonchi, No wheeze, No rales, Diminished Cardiovascular: Regular rate, Regular Rhythm, Normal S1, Normal S2, No murmurs Abdomen: Bowel Sounds Present, Soft, Non-Distended, Tender - Mild tenderness over suprapubic cystostomy. Erythema present Extremities: No edema, Capillary Refill Less than 3 Seconds Skin: Ulcer/ Wound - Chronic wound present over the lateral aspect of left heel. Has fibrosis around the edge and yellow scab on the medial side. Mild bleeding at the lateral edge., Rash Present - Rash present over left lower leg, improving. Musculoskeletal: No Tenderness to Palpation of Joints or Extremities Neurological: Cranial nerves II-XII grossly intact, - - Left leg is more weaker than right leg. Psych/Mental Status: Normal Affect, Appropriate Laboratory Results 11/29/18 06:42: POC Glucose 194 H 11/29/18 11:17: POC Glucose 250 H 11/29/18 16:48: POC Glucose 202 H 11/29/18 22:36: POC Glucose 172 H 11/30/18 02:55: POC Glucose 167 H 11/30/18 05:20: WBC 12.3 H, RBC 3.61 L, Hgb 10.3 L, Hct 32.0 L, MCV 88.6, MCH 28.5, MCHC 32.2, RDW 14.4, RDW Differential 46.9 H, Plt Count 216, MPV 10.7, Immature Gran % (Auto) 1.000 H, Neut % (Auto) 70.3 H, Lymph % (Auto) 15.4 L, Bent % (Auto) 9.2, Eos % (Auto) 3.8, Baso % (Auto) 0.3, Absolute Neuts (auto) 8.7 H, Absolute Lymphs (auto) 1.90, Total Counted Not Reportable 11/30/18 05:20: Sodium 139, Potassium 4.0, Chloride 106, Carbon Dioxide 24.0, Anion Gap 9, BUN 14, Creatinine 1.13 H, Estim Creat Clear Calc 53.91, Est GFR (MDRD) Af Amer 70, Est GFR (MDRD) Non-Af 58 L, BUN/Creatinine Ratio 12.4, Glucose 171 H, Calcium 8.8, Total Bilirubin 0.40, AST 38 H, ALT 44, Alkaline Phosphatase 117, Total Protein 6.9, Albumin 2.5 L, Globulin 4.4 H, Albumin/Globulin Ratio 0.6 L 11/30/18 06:42: POC Glucose 158 H 11/30/18 08:37: POC Glucose 160 H 11/30/18 08:45: MRSA (PCR) Pending 11/30/18 08:45: S.aureus Protein A PCR Pending, MRSA (PCR) Pending Current Medications Acetaminophen (Tylenol) 650 mg PO Q6H PRN PRN PRN Reason: Mild Pain (1-3)/Temp > 100.7 F Atorvastatin Calcium (Lipitor) 10 mg PO QHS [facility] Last Admin: 11/29/18 22:30 Dose: 10 mg Documented by: Buspirone HCl (Buspar) 15 mg PO BID [facility] Last Admin: 11/29/18 22:30 Dose: 15 mg Documented by: Dextrose (D50w Syringe) 0 gm IV X1 PRN; Protocol PRN Reason: Hypoglycemia Duloxetine HCl (Cymbalta) 60 mg PO DAILY [facility] Last Admin: 11/29/18 08:22 Dose: 60 mg Documented by: Enoxaparin Sodium (Lovenox) 40 mg SC DAILY@1000 [facility] Last Admin: 11/29/18 08:23 Dose: 40 mg Documented by: Furosemide (Lasix) 40 mg PO DAILY [facility] Last Admin: 11/29/18 08:23 Dose: 40 mg Documented by: Glucagon () 1 mg IM .X1 PRN PRN Reason: Hypoglycemia Vancomycin IV Pharmacy to Dose (1,000 ea/ Sodium Chloride) 500 mls @ 250 mls/hr IV PRN PRN; Protocol Sodium Chloride () 250 mls @ 15 mls/hr IV .[id number] PRN PRN Reason: SALINE FLUSH Vancomycin HCl (Vancomycin) 1,000 mg in 200 mls @ 200 mls/hr IV Q12H [facility] Last Admin: 11/29/18 22:32 Dose: 200 mls/hr Documented by: Piperacillin Sod/Tazobactam (Sod 3.375 gm/ Sodium Chloride) 50 mls @ 100 mls/hr IV Q6 [facility] Last Admin: 11/30/18 05:23 Dose: 100 mls/hr Documented by: Insulin Glargine (Lantus (Bkc)) 10 units SC QHS [facility] Last Admin: 11/29/18 23:17 Dose: 10 units Documented by: Insulin Human Lispro (Humalog Kwikpen (Bkc)) 0 unit SC ACHS & 3AM DERIAN; Protocol Last Admin: 11/30/18 08:37 Dose: 2 unit Documented by: Loratadine (Claritin) 10 mg PO DAILY [facility] Last Admin: 11/29/18 08:22 Dose: 10 mg Documented by: Melatonin (Melatonin) 3 mg PO QHS PRN PRN PRN Reason: INSOMNIA Morphine Sulfate () 2 mg IV Q3H PRN PRN PRN Reason: Severe pain (7-10/10) Last Admin: 11/29/18 18:29 Dose: 2 mg Documented by: Ondansetron HCl (Zofran) 4 mg IV Q8H PRN PRN PRN Reason: NAUSEA/VOMITING Oxycodone HCl (Oxyir) 5 mg PO Q4H PRN PRN PRN Reason: Moderate Pain (4-6/10) Last Admin: 11/29/18 23:20 Dose: 5 mg Documented by: Polyethylene Glycol (Miralax) 17 gm PO BID [facility] Pregabalin (Lyrica) 75 mg PO DAILY [facility] Last Admin: 11/29/18 08:30 Dose: 75 mg Documented by: Propranolol HCl (Inderal) 10 mg PO DAILY [facility] Last Admin: 11/29/18 08:23 Dose: 10 mg Documented by: Pseudoephedrine HCl (Sudafed) 30 mg PO Q6H PRN PRN PRN Reason: CONGESTION Senna/Docusate Sodium (Senokot-S, Joan-Colace) 2 tablet PO BID [facility] Sodium Chloride () 10 - 40 ml IV UD PRN PRN Reason: SALINE FLUSH Last Admin: 11/29/18 18:29 Dose: 10 ml Documented by: Medical Necessity - Tobacco Use Smoking Status: Never smoker Assessment/Plan All Active Problems (Last Reviewed 11/29/18 @ 08:01 by Gen Butt MD) Sepsis due to cellulitis (Acute) Decubitus ulcer of left heel (Acute) Normochromic normocytic anemia (Acute) Diabetic ulcer of left heel with fat layer exposed (Acute) Type 2 diabetes mellitus with diabetic polyneuropathy (Acute) Delayed wound healing (Acute) Lower extremity edema (Acute) Chest pain (Acute) Sepsis (Acute) UTI (urinary tract infection) (Resolved) The patient is a 38 year old F with a significant history of type 2 diabetes; spina bifida of complicated neurogenic bladder status post suprapubic catheter who presented to the emergency department with rigors; fever; stoma site pain and drainage; and was found to have erythema of the left leg consistent with sepsis secondary to probable cellulitis; stoma site infection; ;diabetic wound infection of the left heel; urinary tract infection. 1 sepsis (T1 100.5 Fahrenheit at home, secondary to left leg cellulitis and peritubal suprapubic cystostomy: She also has left heel ulcer, chronic since July 2018. Sepsis (fever,101.5 at home; tachycardia, 108.8, leukocytosis white count of 27.9) secondary to left leg cellulitis with chronic nonhealing ulcer and stoma site cellulitis of suprapubic catheter, possible UTI/colonization Blood cultures x2 and wound culture are pending. MRSA nasal screen and wound swab are pending. Juvenile Counselor consult to Dr. Guo/Dr. Faria. on vancomycin and Zosyn in ED. ID and podiatry consult. 2. Depression/anxiety Buspirone and Cymbalta continued 3. Diabetes mellitus, uncontrolled: Glucose is between 1 56-250. Victoza is not formulary here, therefore held. Accu-Chek before meals and at bedtime and cover with Humalog sliding scale. Accu-Chek q. before meals at bedtime with correction scale insulin. On Lantus 10 units of nightly daily. Metformin held secondary to lactic acidosis 4. Chronic constipation, bilateral leg weakness/paraparesis, left more than right secondary to spina bifid aperta status post 2 lumbar surgeries Neuropathy Pregabalin continued Allergies Claritin continued. Migraines and dysrhythmia Propranolol continue holding parameters if patient gets hypotensive. Bilateral lower leg edema: Lasix continued Laboratory Results 11/29/18 06:42: POC Glucose 194 H 11/29/18 11:17: POC Glucose 250 H 11/29/18 16:48: POC Glucose 202 H 11/29/18 22:36: POC Glucose 172 H 11/30/18 02:55: POC Glucose 167 H 11/30/18 05:20: WBC 12.3 H, RBC 3.61 L, Hgb 10.3 L, Hct 32.0 L, MCV 88.6, MCH 28.5, MCHC 32.2, RDW 14.4, RDW Differential 46.9 H, Plt Count 216, MPV 10.7, Immature Gran % (Auto) 1.000 H, Neut % (Auto) 70.3 H, Lymph % (Auto) 15.4 L, [place] % (Auto) 9.2, Eos % (Auto) 3.8, Baso % (Auto) 0.3, Absolute Neuts (auto) 8.7 H, Absolute Lymphs (auto) 1.90, Total Counted Not Reportable 11/30/18 05:20: Sodium 139, Potassium 4.0, Chloride 106, Carbon Dioxide 24.0, Anion Gap 9, BUN 14, Creatinine 1.13 H, Estim Creat Clear Calc 53.91, Est GFR (MDRD) Af Amer 70, Est GFR (MDRD) Non-Af 58 L, BUN/Creatinine Ratio 12.4, Glucose 171 H, Calcium 8.8, Total Bilirubin 0.40, AST 38 H, ALT 44, Alkaline Phosphatase 117, Total Protein 6.9, Albumin 2.5 L, Globulin 4.4 H, Albumin/Globulin Ratio 0.6 L 11/30/18 06:42: POC Glucose 158 H 11/30/18 08:37: POC Glucose 160 H 11/30/18 08:45: MRSA (PCR) Pending 11/30/18 08:45: S.aureus Protein A PCR Pending, MRSA (PCR) Pending Code Visit Inpatient E&M: 51739 [facility] Hosp L3
[2018-11-30] MEDS: busPIRone 15 MG TABLET PO ×2 (09:26→21:56)
[2018-11-30] MEDS: Vancomycin IV 1,000 MG/200 ML BAG 200 MG IV (09:26)
[2018-11-30] MEDS: Propranolol 10 MG Tablet PO (09:26)
[2018-11-30] MEDS: Furosemide 40 MG Tablet PO (09:27)
[2018-11-30] MEDS: Enoxaparin 40 MG/0.4 ML Syringe SC (09:27)
[2018-11-30] MEDS: Loratadine 10 MG Tablet PO (09:27)
[2018-11-30] MEDS: DULoxetine Hcl 60 MG Capsule PO (09:27)
[2018-11-30] MEDS: Pregabalin 75 MG Capsule PO (09:29)
[2018-11-30 09:59] LABS: Vancomycin, Trough Level 12.7 ug/mL (5.0-15.0)
[2018-11-30 10:00] LABS: M R Staph aureus DNA By PCR Negative (Negative); Probe Check PASS; Specimen Processing Control PASS
--- NOTE | 2018-11-30 10:26 | PCM.RX.CS ---
Consult Pharmacy has been consulted to manage selected antiobiotic: Vancomycin Type of Consult: Follow-up Suspected Infection: Sepsis Prior Doses of Antibiotics Received/Current Regimen: Has been on 1gm iv q12h Labs: Sodium 139 mmol/L (136-145) 11/30/18 05:20 Potassium 4.0 mmol/L (3.5-5.1) 11/30/18 05:20 Chloride 106 mmol/L (98-107) 11/30/18 05:20 Carbon Dioxide 24.0 mmol/L (21.0-32.0) 11/30/18 05:20 9 (5-15) 11/30/18 05:20 BUN 14 mg/dL (7-18) 11/30/18 05:20 1.13 mg/dL (0.55-1.02) H 11/30/18 05:20 Est GFR (MDRD) Af Amer 70 mL/min (>60) 11/30/18 05:20 Est GFR (MDRD) Non-Af 58 mL/min (>60) L 11/30/18 05:20 12.4 RATIO (10-20) 11/30/18 05:20 Glucose 171 mg/dL (74-106) H 11/30/18 05:20 Vancomycin Trough 12.7 ug/mL (5.0-15.0) 11/30/18 09:15 Weight used for dosin.1 kg Estimated Creatinine Clearance: ~54 ml/min Goal Trough: 15-20 mcg/mL Pharmacy Plan for Drug Dosing: Vancomycin trough 11.30.18 was 12.7 (goal range 15-20 mcg/ml). Will increase to dose to 1250mg iv q12h and get repeat trough level on 12.02.18. Renal function same. Pharmacy Service will continue to monitor and adjust dosing as required. Follow-Up Labs: Trough Vancomycin - 7.19 @0830 before 0900 dose
[2018-11-30 10:30] LABS: M R Staph aureus DNA By PCR Negative (Negative); Probe Check PASS; Specimen Processing Control PASS; Staph aureus DNA By PCR POSITIVE (Negative)
--- NOTE | 2018-11-30 10:50 | CASEMGMT ---
VERNON BENITEZ Face to Face with patient for initial transition planning/care coordination assessment. VERNON BENITEZ introduced self and role at [facility]. Patient lying in bed, alert and oriented. Patient willing to participate in assessment and is able to answer all questions appropriately. Care providers, pharmacy, and demographics verified. Patient wishes to discharge home, denies need for home health at this time. If patient would need IV ATBS at discharge she would like to go to [facility]. VERNON BENITEZ updated SALUD Gerardo Martinez regarding possible placement. Patient states she has no further needs or concerns at this time. CM to follow for discharge planning needs that may arise. PCP: Vazquez Specialists: See Neurologist and Urologist at [facility] Preferred Pharm[facility]: [facility] Pres[facility] Benefit: yes Living Will/HPOA: none LNOK: Living Arrangements: Patient lives with in two story home with bed and bath on first floor. Transportation: Father in Law DME/HHC: Patient has cane, walker, wheel chair, and shower chair at home. Has been [facility] in the past. Disposition Plan: If patient requires IV ATB prefers to go to [facility], if oral ATB patient will discharge home with family support and follow-up plans in place. Kati SANDERS, RN, CM
--- NOTE | 2018-11-30 11:45 | PCM.CONS.GEN ---
Problem List 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 Status: Chronic (2) Cellulitis of left lower extremity Status: Acute (3) Diabetes mellitus with neuropathy Status: Chronic Qualifiers: Diabetes mellitus type: type 2 (4) Malnutrition Status: Suspected (5) Edema of left lower extremity Status: Chronic (6) Spina bifida aperta of lumbar spine Status: Chronic Comment: s/p surgery x 2 weakness and numbness in legs neurogenic bladder and frequent UTIs Reason for Consult Date of Consultation: 11/30/18 Reason for Consultation: Left heel ulcer with infection History of Present Illness: The patient is a 38 year old F with significant past medical history of diabetes with neuropathy, spina bifida, depression, neurogenic bladder and bowel presents with chronic left heel ulcer with an onset of August. She is been treated in the wound healing center with Dr. Faria. She noticed systemic illness and thought it was secondary to her suprapubic catheter placement with infection. She then noticed some redness on the leg after she was admitted to the hospital this past Monday. She continues on IV antibiotics. She denies current fever, chill, nausea, vomiting, chest pain, shortness of breath, calf pain at this time. Her heel does have mild to moderate pain with direct touch. She denies known trauma. Past Medical History Past Medical History (Chronic Problems): Chronic Problems (Last Reviewed 11/29/18 @ 08:01 by Gen Butt MD) Ulcer of left heel and midfoot with fat layer exposed (Chronic) Diabetes mellitus with neuropathy (Chronic) Edema of left lower extremity (Chronic) Constipation (Chronic) Neurogenic bowel (Chronic) Neurogenic bladder (Chronic) Chronic back pain (Chronic) History of migraine (Chronic) Depression (Chronic) 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 Will follow, no need yet for cysto retros etc. But this may change in future Jan Re-admitted consult dictated Medical History: Medical History (Last Reviewed 11/29/18 @ 08:01 by Gen Butt MD) Neurogenic bowel (Chronic) K59.2 Neurogenic bladder (Chronic) N31.9 Chronic back pain (Chronic) M54.9, G89.29 History of migraine (Chronic) Z86.69 Depression (Chronic) F32.9 Spina bifida aperta of lumbar spine (Chronic) Q05.7 s/p surgery x 2 weakness and numbness in legs neurogenic bladder and frequent UTIs Non-compliance (Chronic) Z91.19 Morbid obesity with BMI of 40.0-44.9, adult (Chronic) E66.01, Z68.41 Diabetes mellitus, type II (Chronic) E11.9 not well controlled Hydronephrosis of right kidney (Chronic) N13.30 Consult dictated, For now Treat UTI and make sure pt does self cath. Will follow, no need yet for cysto retros etc. But this may change in future 13 Sept Re-admitted consult dictated UTI (urinary tract infection) (Resolved) N39.0 Allergies mushroom Allergy (Verified 11/28/18 19:32) Anaphylaxis peanut Allergy (Verified 11/28/18 19:32) Anaphylaxis Gadolinium-MRI Contrast Medium Adverse Reaction (Verified 11/28/18 19:32) Vomiting Home Medications: Ambulatory Orders Medication Instructions Recorded metFORMIN (XR) [Glucophage Xr] 1,000 mg PO BID 06/19/16 Atorvastatin Calcium [Lipitor] 10 mg PO QHS 11/07/17 Pseudoephedrine HCl [Sudogest] 30 mg PO Q6H PRN PRN 01/21/18 Pregabalin [Lyrica] 75 mg PO DAILY 02/25/18 Buspirone HCl 15 mg PO BID 04/11/18 Polyethylene Glycol 3350 [Miralax] 17 gm PO DAILY PRN 04/13/18 Liraglutide [Victoza] 1.2 mg SQ DAILY 07/03/18 Duloxetine HCl 60 mg PO DAILY 08/28/18 Furosemide [Lasix] 20 mg PO DAILY@1700 08/28/18 Furosemide [Lasix] 40 mg PO DAILY 08/28/18 Loratadine [Claritin] 10 mg PO DAILY 08/28/18 Propranolol HCl 10 mg PO DAILY 08/28/18 Oxybutynin [Ditropan] 15 mg PO DAILY 10/23/18 Surgical History: Surgical History (Last Reviewed 11/29/18 @ 08:01 by Gen Butt MD) History of cholecystectomy Z90.49 History of dilation and curettage Z98.890 History of spinal surgery Z98.890 Hx of foot surgery Z98.890 Hx of ventral hernia repair Z98.890, Z87.19 Status post gastric surgery Z98.890 Surgical History: cholecystectomy, - - D&C, lumbar back surgery x2, foot surgery x2, abdominal stoma, ventral hernia repair. Psychiatric History: Anxiety, Depression EATING DISORDER SPECIALIST History: No pertinent EATING DISORDER SPECIALIST history Lives: With Family Smoking Status: Never smoker Alcohol: None - *Family History Maternal Family History: Family History (Last Reviewed 11/29/18 @ 08:01 by Gen Butt MD) Mother CVA (cerebral vascular accident) Thyroid disorder Diabetes Hypertension History Items: Cancer, Diabetes, Hypertension, Stroke Paternal Family History: Family History (Last Reviewed 11/29/18 @ 08:01 by Gen Butt MD) Mother CVA (cerebral vascular accident) Thyroid disorder Diabetes Hypertension History Items: No pertinent history Sibling Family History: Family History (Last Reviewed 11/29/18 @ 08:01 by Gen Butt MD) Mother CVA (cerebral vascular accident) Thyroid disorder Diabetes Hypertension History Items: No pertinent history Review of Systems Constitutional: Denies: Chills, Fever, Weight Change Cardiovascular: Denies: Chest Pain Respiratory: Denies: Shortness of Breath Genitourinary: Reports: Incontinence Musculoskeletal: Reports: Foot Pain. Denies: Leg Pain Skin: Reports: Skin Changes, Wounds Neurological: Reports: Incoordination, Numbness Patient Problems: Active and Suspected Problems (Last Reviewed 11/29/18 @ 08:01 by Gen Butt MD) Sepsis (Acute) Cellulitis of left lower extremity (Acute) Malnutrition (Suspected) - Physical Exam General: Alert, Oriented x3, Cooperative HEENT: Atraumatic Extremities: No cyanosis, Capillary Refill Less than 3 Seconds, No Calf Tenderness - negative Angella and Pinto sign bilateral. Compartments are soft to palpate bilateral lower extremities without fluctuance or crepitus, Edema - Mild to moderate bilateral lower extremities, Peripheral Pulses Normal Skin: Ulcer/ Wound - Pre-debridement measurement of left posterior lateral heel ulcer is 2.5 x 2.0 x 0.2 cm and post debridement is 2.8 x 2.3 x 0.2 cm. There is no purulence, erythema, or odor, necrosis, deep tissue exposure probing, maceration noted. There are pre-marked cellulitis areas with pen in which the erythema has receded in intensity and location. There are no blisters. Musculoskeletal: No Tenderness to Palpation of Joints or Extremities, Muscle Wasting, - - Weakness consistent with spina bifida bilateral lower extreme knees. Minimal active range of motion of ankles are noted. There is tenderness with manipulation of the ulcer site left heel Neurological: - - Lack of normal epicritic sensation light touch left lower extremity Psych/Mental Status: Normal Affect, Appropriate Vital Signs Temp Pulse Resp BP Pulse Ox 96.9 F L 72 18 116/63 96 11/30/18 09:33 11/30/18 09:33 11/30/18 09:33 11/30/18 09:33 11/30/18 09:33 Oxygen Delivery Method Room Air Weight: 103.1 kg Body Mass Index (BMI) 41.5 Finger Stick Blood Glucose 187 Intake and Output for Last 24 Hours 11/28/18 11/29/18 11/30/18 23:59 23:59 23:59 Intake Total 1484 / 1907 707 / 707 Output Total 1250 / 1600 1150 / 1150 Balance 234 / 307 -443 / -443 Microbiology Past 72 Hours 11/29/18 09:25 Urine Culture - Preliminary Suprapubic Tap Staphylococcus aureus Laboratory Tests Past 24 Hrs 11/30/18 11/30/18 11/30/18 05:20 05:20 08:45 WBC 12.3 H RBC 3.61 L Hgb 10.3 L Hct 32.0 L MCV 88.6 MCH 28.5 MCHC 32.2 RDW 14.4 RDW Differential 46.9 H Plt Count 216 MPV 10.7 Immature Gran % (Auto) 1.000 H Neut % (Auto) 70.3 H Lymph % (Auto) 15.4 L [place] % (Auto) 9.2 Eos % (Auto) 3.8 Baso % (Auto) 0.3 Absolute Neuts (auto) 8.7 H Absolute Lymphs (auto) 1.90 Total Counted Not Reportable Sodium 139 Potassium 4.0 Chloride 106 Carbon Dioxide 24.0 Anion Gap 9 BUN 14 Creatinine 1.13 H Estim Creat Clear Calc 53.91 Est GFR (MDRD) Af Amer 70 Est GFR (MDRD) Non-Af 58 L BUN/Creatinine Ratio 12.4 Glucose 171 H Calcium 8.8 Total Bilirubin 0.40 AST 38 H ALT 44 Alkaline Phosphatase 117 Total Protein 6.9 Albumin 2.5 L Globulin 4.4 H Albumin/Globulin Ratio 0.6 L Vancomycin Trough S.aureus Protein A PCR MRSA (PCR) Negative 11/30/18 11/30/18 08:45 09:15 WBC RBC Hgb Hct MCV MCH MCHC RDW RDW Differential Plt Count MPV Immature Gran % (Auto) Neut % (Auto) Lymph % (Auto) [place] % (Auto) Eos % (Auto) Baso % (Auto) Absolute Neuts (auto) Absolute Lymphs (auto) Total Counted Sodium Potassium Chloride Carbon Dioxide Anion Gap BUN Creatinine Estim Creat Clear Calc Est GFR (MDRD) Af Amer Est GFR (MDRD) Non-Af BUN/Creatinine Ratio Glucose Calcium Total Bilirubin AST ALT Alkaline Phosphatase Total Protein Albumin Globulin Albumin/Globulin Ratio Vancomycin Trough 12.7 S.aureus Protein A PCR POSITIVE H MRSA (PCR) Negative POC Glucose 11/30/18 11/30/18 11/30/18 08:37 06:42 02:55 POC Glucose 160 H 158 H 167 H 11/29/18 11/29/18 22:36 16:48 POC Glucose 172 H 202 H Assessment/Plan All Active Problems (Last Reviewed 11/29/18 @ 08:01 by Gen Butt MD) Sepsis due to cellulitis (Acute) Decubitus ulcer of left heel (Acute) Normochromic normocytic anemia (Acute) Diabetic ulcer of left heel with fat layer exposed (Acute) Type 2 diabetes mellitus with diabetic polyneuropathy (Acute) Delayed wound healing (Acute) Lower extremity edema (Acute) Chest pain (Acute) Sepsis (Acute) Cellulitis of left lower extremity (Acute) UTI (urinary tract infection) (Resolved) Left heel ulcer with fat layer exposed cellulitis left lower extremity, improving Spina bifida Diabetes with neuropathy Lower extremity edema Malnutrition suspected Delayed healing other comorbidities include include obesity, depression, neurogenic bladder and bowel I reviewed and discussed her case today. Her diagnostic data was also reviewed. Her vital signs are stable and she is afebrile at this time. She does have a white blood cell count of 12.3. X-rays will be ordered and evaluated. Cultures were obtained of the heel including aerobic, anaerobic, and an MRSA PCR and these results are pending. She is on vancomycin and Zosyn and I recommend infectious disease consultation. She appears to be responding to her initial cellulitis treatment plan. I do not recommend surgical intervention at this time. She will be monitored every few days while in the hospital and her foot appears to be stable at this time. I do recommend strict offloading of the heel with placement of a donut offloading pillow. The ulcer site was debrided with a 15 blade after verbal consent was obtained and she tolerated this well. This was performed to excise nonviable and devitalized subcutaneous tissue, fibrous, devitalized tissue, biofilm and slough. Pressure was applied to maintain hemostasis. A dressing with Aquacel Ag and gauze were applied; this will be changed daily. I recommend nutritional supplementation to optimize healing; Ty nutritional supplement was ordered. It is also noted that she has been seen by Dr. Faria in the wound healing center and has already had a noninvasive vascular study formed in August 2017. The results were normal and she appears to have adequate perfusion to lower extremity. I also recommend we treat her edema with elevation of the limbs and continue Carlos wrap use which was applied. Medical management and DVT prophylaxis per primary team is greatly appreciated. Thank you very much for the consultation. I will continue to follow her closely in house. Please not hesitate to call with any questions. Marcela Michael DPM, [facility] [phone]
--- NOTE | 2018-11-30 11:56 | RAD_ITS ---
STUDY: X-RAY - LEFT ANKLE REASON FOR EXAM: Female, 38 years old. Possible infection. TECHNIQUE: 3 view(s) of the ankle. COMPARISON: None. FINDINGS: Normal visualized distal tibia and fibula. Normal medial and lateral malleoli. Normal tibiotalar articulation and ankle mortise. Spur is seen at the insertion of the Achilles tendon. The visualized subtalar, talonavicular, calcaneocuboid and tarsal articulations are normal. Diffuse soft tissue swelling. RAD/Ankle min 3 Views IMPRESSION: Diffuse soft tissue swelling. Calcaneal spur. Electronically Signed: Stephan Sood, at 15:14 EDT , Service support ,
[2018-11-30] MEDS: Ondansetron 4 MG/2 ML Vial IV (12:00)
[2018-11-30] MEDS: 0.9% NaCl Peripheral Flush Adult/Peds IV (12:00)
--- NOTE | 2018-11-30 12:50 | RAD_ITS ---
STUDY: X-RAY - LEFT FOOT CLINICAL: Female, 38 years old. Possible infection. TECHNIQUE: 3 view(s) of the foot. COMPARISON: Comparison is made with prior examination dated August 30, 2018. FINDINGS: There is an enthesophyte involving the posterior superior calcaneus at the site of insertion of the Achilles tendon. Normal visualized subtalar, talonavicular, calcaneocuboid, tarsal and tarsometatarsal articulations. 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 There is degenerative arthrosis of the metatarsophalangeal joint of the hallux with a hallux valgus deformity. Normal tibial and fibular sesamoid bones. Normal interphalangeal joint of the great toe. Normal phalanges of the great toe. Normal second through fifth metatarsophalangeal joints. Normal interphalangeal joints and phalanges of the lesser toes. Diffuse soft tissue swelling. RAD/Foot min 3 Views IMPRESSION: Diffuse soft tissue swelling. 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 Electronically Signed: Stephan Sood, at 15:15 EDT , Service support ,
[2018-11-30] MEDS: Polyethylene Glycol 3350 17 GM PACKET PO ×2 (12:53→21:57)
[2018-11-30] MEDS: Senna/Docusate Sodium 1 Tablet 2 TABLET PO ×2 (12:53→21:56)
[2018-11-30 12:56] LABS: Bedside Glucose 266 mg/dL (70-110)
--- NOTE | 2018-11-30 13:43 | PCM.HP.ID ---
Problem List (1) Sepsis due to cellulitis Status: Acute Reason for Consult: sepsis Consulted by: Dr. Cornejo History of Present Illness: The patient is a 38 year old Fwith spina bifida, admitted 08/2018 with LLE cellulitis and sepsis. Was at [facility] until about a month ago. Had suprapubic catheter placed at [facility], complicated by redness and purulence, catheter was changed 11/26. No recent abx. Had acute onset fever, chills, shakes, LLE redness, not feeling well. Came to ED, admitted on vanc/zosyn. Drainage and redness of LLE and suprapubic improving. Full ROS performed and neg except as noted above. - Medical History Past Medical History (Chronic Problems): Chronic Problems (Last Reviewed 11/29/18 @ 08:01 by Gen Butt MD) Ulcer of left heel and midfoot with fat layer exposed (Chronic) Diabetes mellitus with neuropathy (Chronic) Edema of left lower extremity (Chronic) Constipation (Chronic) Neurogenic bowel (Chronic) Neurogenic bladder (Chronic) Chronic back pain (Chronic) History of migraine (Chronic) Depression (Chronic) 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 Will follow, no need yet for cysto retros etc. But this may change in future Jan Re-admitted consult dictated Allergies/Adverse Reactions: Allergies mushroom Allergy (Verified 11/28/18 19:32) Anaphylaxis peanut Allergy (Verified 11/28/18 19:32) Anaphylaxis Gadolinium-MRI Contrast Medium Adverse Reaction (Verified 11/28/18 19:32) Vomiting Home Medications: Ambulatory Orders Medication Instructions Recorded metFORMIN (XR) [Glucophage Xr] 1,000 mg PO BID 06/19/16 Atorvastatin Calcium [Lipitor] 10 mg PO QHS 11/07/17 Pseudoephedrine HCl [Sudogest] 30 mg PO Q6H PRN PRN 01/21/18 Pregabalin [Lyrica] 75 mg PO DAILY 02/25/18 Buspirone HCl 15 mg PO BID 04/11/18 Polyethylene Glycol 3350 [Miralax] 17 gm PO DAILY PRN 04/13/18 Liraglutide [Victoza] 1.2 mg SQ DAILY 07/03/18 Duloxetine HCl 60 mg PO DAILY 08/28/18 Furosemide [Lasix] 20 mg PO DAILY@1700 08/28/18 Furosemide [Lasix] 40 mg PO DAILY 08/28/18 Loratadine [Claritin] 10 mg PO DAILY 08/28/18 Propranolol HCl 10 mg PO DAILY 08/28/18 Oxybutynin [Ditropan] 15 mg PO DAILY 10/23/18 - Social History SMOKING STATUS:: Never smoker Vital Signs Temp Pulse Resp BP Pulse Ox 96.9 F L 80 18 116/63 96 11/30/18 09:33 11/30/18 11:46 11/30/18 09:33 11/30/18 09:33 11/30/18 09:33 Oxygen Delivery Method Room Air Weight: 103.1 kg Body Mass Index (BMI) 41.5 Finger Stick Blood Glucose 187 Microbiology Past 72 Hours 11/29/18 09:25 Urine Culture - Preliminary Suprapubic Tap Staphylococcus aureus Laboratory Tests Past 24 Hrs 11/30/18 11/30/18 11/30/18 05:20 05:20 08:45 WBC 12.3 H RBC 3.61 L Hgb 10.3 L Hct 32.0 L MCV 88.6 MCH 28.5 MCHC 32.2 RDW 14.4 RDW Differential 46.9 H Plt Count 216 MPV 10.7 Immature Gran % (Auto) 1.000 H Neut % (Auto) 70.3 H Lymph % (Auto) 15.4 L [place] % (Auto) 9.2 Eos % (Auto) 3.8 Baso % (Auto) 0.3 Absolute Neuts (auto) 8.7 H Absolute Lymphs (auto) 1.90 Total Counted Not Reportable Sodium 139 Potassium 4.0 Chloride 106 Carbon Dioxide 24.0 Anion Gap 9 BUN 14 Creatinine 1.13 H Estim Creat Clear Calc 53.91 Est GFR (MDRD) Af Amer 70 Est GFR (MDRD) Non-Af 58 L BUN/Creatinine Ratio 12.4 Glucose 171 H Calcium 8.8 Total Bilirubin 0.40 AST 38 H ALT 44 Alkaline Phosphatase 117 Total Protein 6.9 Albumin 2.5 L Globulin 4.4 H Albumin/Globulin Ratio 0.6 L Vancomycin Trough S.aureus Protein A PCR MRSA (PCR) Negative 11/30/18 11/30/18 08:45 09:15 WBC RBC Hgb Hct MCV MCH MCHC RDW RDW Differential Plt Count MPV Immature Gran % (Auto) Neut % (Auto) Lymph % (Auto) [place] % (Auto) Eos % (Auto) Baso % (Auto) Absolute Neuts (auto) Absolute Lymphs (auto) Total Counted Sodium Potassium Chloride Carbon Dioxide Anion Gap BUN Creatinine Estim Creat Clear Calc Est GFR (MDRD) Af Amer Est GFR (MDRD) Non-Af BUN/Creatinine Ratio Glucose Calcium Total Bilirubin AST ALT Alkaline Phosphatase Total Protein Albumin Globulin Albumin/Globulin Ratio Vancomycin Trough 12.7 S.aureus Protein A PCR POSITIVE H MRSA (PCR) Negative - Other Studies Radiology: [] reviewed Other Studies: [] Route of nutrition/ use of supplements: [] Nutritional Intake: [] IV Site: [] Morales Catheter: [] - Physical Exam General: Alert, Oriented x3, Cooperative, No apparent distress HEENT: Atraumatic, PERRLA, EOMI Neck: Supple, No Nodes Lungs: Clear to auscultation, Normal air movement Cardiovascular: Regular rate, Regular Rhythm Abdomen: Soft, Non Tender, Non-Distended, - - suprapubic some breakdown and mild drainage Extremities: Edema Skin: Ulcer/ Wound - reviewed photo IV Site: Peripheral, without redness Neurological: Cranial nerves II-XII grossly intact - Assessment/Plan Antibiotics: [] Assessment/Plan: [] Active and Suspected Problems (Last Reviewed 11/29/18 @ 08:01 by Gen Butt MD) Sepsis (Acute) Cellulitis of left lower extremity (Acute) Malnutrition (Suspected) Improving wbc. Ucx with staph. Wound pcr with mssa. Xrays pending. Seen by Dr. Michael. Will narrow abx to vanc/unasyn. If xray shows no osteo, plan will be for home with 10 days of po abx which will depend on final cx results. Will follow, thank you, d/w clinical case manager
[2018-11-30 16:36] LABS: Bedside Glucose 142 mg/dL (70-110)
[2018-11-30] MEDS: Atorvastatin Calcium 10 MG Tablet PO (21:56)
[2018-11-30] MEDS: oxyCODONE 5 MG Tablet PO (22:08)
[2018-12-01] VITALS (13 sets, daily range): BP systolic 110–141; BP diastolic 61–75; PULSE 48–100; RESP 16; TEMP 36.5–37; O2SAT 95–100
[2018-12-01 00:01] LABS: Bedside Glucose 172 mg/dL (70-110)
[2018-12-01 03:51] LABS: Bedside Glucose 90 mg/dL (70-110)
[2018-12-01 06:55] LABS: Bedside Glucose 94 mg/dL (70-110)
[2018-12-01] MEDS: Senna/Docusate Sodium 1 Tablet 2 TABLET PO (09:10)
[2018-12-01] MEDS: Loratadine 10 MG Tablet PO (09:10)
[2018-12-01] MEDS: busPIRone 15 MG TABLET PO ×2 (09:10→21:31)
[2018-12-01] MEDS: Furosemide 40 MG Tablet PO (09:11)
[2018-12-01] MEDS: DULoxetine Hcl 60 MG Capsule PO (09:11)
[2018-12-01] MEDS: Propranolol 10 MG Tablet PO (09:11)
[2018-12-01] MEDS: Enoxaparin 40 MG/0.4 ML Syringe SC (09:12)
[2018-12-01] MEDS: Pregabalin 75 MG Capsule PO (09:13)
[2018-12-01] MEDS: Insulin Lispro 100 UNIT/ML INSULN.PEN SC ×3 (11:19→21:31)
[2018-12-01 11:25] LABS: Bedside Glucose 192 mg/dL (70-110)
[2018-12-01] MEDS: oxyCODONE 5 MG Tablet PO (11:44)
--- NOTE | 2018-12-01 12:07 | PN_ITS ---
Patient Problems: Active and Suspected Problems (Last Reviewed 11/29/18 @ 08:01 by Gen Butt MD) Sepsis (Acute) Cellulitis of left lower extremity (Acute) Malnutrition (Suspected) Subjective: Patient did not have any fever chills or tachycardia. The ulcer over the suprapubic catheter looks better. Slough has mostly cleared up but is still trace present. There is no peritubal purulent discharge, redness or tenderness. Vitals/I&O's: Vital Signs Temp Pulse Resp BP Pulse Ox 98.6 F 58 L 16 110/74 99 12/01/18 11:48 12/01/18 11:48 12/01/18 11:48 12/01/18 11:48 12/01/18 11:48 Oxygen Delivery Method Room Air Weight: 227 lb 4.745 oz Body Mass Index (BMI) 41.5 Finger Stick Blood Glucose 187 Intake and Output for Last 24 Hours 11/29/18 11/30/18 12/01/18 23:59 23:59 23:59 Intake Total 1484 / 1907 2795.9 / 4258.9 2428 / 2428 Output Total 1250 / 1600 3100 / 3900 1475 / 1475 Balance 234 / 307 -304.1 / 358.9 953 / 953 General: Alert, Oriented x3, Cooperative HEENT: Atraumatic, PERRLA, EOMI, Normocephalic Neck: Supple, No JVD, Negative Carotid Bruits Lungs: Clear to auscultation, Normal air movement, Diminished Cardiovascular: Regular rate, Regular Rhythm, Normal S1, Normal S2, No murmurs Abdomen: Bowel Sounds Present, Soft, Non Tender, Non-Distended Extremities: Capillary Refill Less than 3 Seconds, Edema Skin: No rashes, No breakdown Musculoskeletal: No Tenderness to Palpation of Joints or Extremities, Arthritic Changes, Muscle Wasting, - - Paraparesis. Left more than right. Neurological: Cranial nerves II-XII grossly intact, Deep Tendon Reflexes 2+/4 and Symmetrical, Neuro grossly intact Psych/Mental Status: Normal Affect, Appropriate Microbiology Past 72 Hours 11/30/18 08:45 Wound - Aerobic & Anaerobic Swabs Gram Stain - Final 11/30/18 08:45 Wound - Aerobic & Anaerobic Swabs Wound Culture - Preliminary Beta hemolytic organism Gram positive organism 11/29/18 09:25 Suprapubic Tap Urine Culture - Final Staphylococcus aureus 11/28/18 20:42 Blood Culture (Wb) - Left Forearm Blood Culture - Preliminary No growth in 48 hours. 11/28/18 19:55 Blood Culture (Wb) - Anticubital Right Blood Culture - Preliminary No growth in 48 hours. Laboratory Results 11/30/18 12:41: POC Glucose 266 H 11/30/18 16:29: POC Glucose 142 H 11/30/18 21:53: POC Glucose 172 H 12/01/18 03:34: POC Glucose 90 12/01/18 06:48: POC Glucose 94 12/01/18 11:18: POC Glucose 192 H Current Medications Acetaminophen (Tylenol) 650 mg PO Q6H PRN PRN PRN Reason: Mild Pain (1-3)/Temp > 100.7 F Atorvastatin Calcium (Lipitor) 10 mg PO QHS [facility] Last Admin: 11/30/18 21:56 Dose: 10 mg Documented by: Buspirone HCl (Buspar) 15 mg PO BID [facility] Last Admin: 12/01/18 09:10 Dose: 15 mg Documented by: Dextrose (D50w Syringe) 0 gm IV X1 PRN; Protocol PRN Reason: Hypoglycemia Duloxetine HCl (Cymbalta) 60 mg PO DAILY [facility] Last Admin: 12/01/18 09:11 Dose: 60 mg Documented by: Enoxaparin Sodium (Lovenox) 40 mg SC DAILY@1000 [facility] Last Admin: 12/01/18 09:12 Dose: 40 mg Documented by: Furosemide (Lasix) 40 mg PO DAILY [facility] Last Admin: 12/01/18 09:11 Dose: 40 mg Documented by: Glucagon () 1 mg IM .X1 PRN PRN Reason: Hypoglycemia Vancomycin IV Pharmacy to Dose (1,000 ea/ Sodium Chloride) 500 mls @ 250 mls/hr IV PRN PRN; Protocol Sodium Chloride () 250 mls @ 15 mls/hr IV .[id number] PRN PRN Reason: SALINE FLUSH Vancomycin HCl 1,250 mg/ (Sodium Chloride) 275 mls @ 167 mls/hr IV Q12H [facility] Last Admin: 12/01/18 09:09 Dose: 167 mls/hr Documented by: Ampicillin Sodium/Sulbactam (Sodium 3 gm/ Sodium Chloride) 112 mls @ 150 mls/hr IV Q6 [facility] Last Admin: 12/01/18 11:44 Dose: 150 mls/hr Documented by: Insulin Glargine (Lantus (Bk)) 10 units SC BID [facility] Last Admin: 12/01/18 09:11 Dose: 10 units Documented by: Insulin Human Lispro (Humalog Kwikpen ([facility])) 0 unit SC ACHS & 3AM [facility]; Protocol Last Admin: 12/01/18 11:19 Dose: 2 unit Documented by: Loratadine (Claritin) 10 mg PO DAILY [facility] Last Admin: 12/01/18 09:10 Dose: 10 mg Documented by: Melatonin (Melatonin) 3 mg PO QHS PRN PRN PRN Reason: INSOMNIA Morphine Sulfate () 2 mg IV Q3H PRN PRN PRN Reason: Severe pain (7-10/10) Last Admin: 11/29/18 18:29 Dose: 2 mg Documented by: Nutritional Formula (Ty - [place] Flavor) [facility] Last Admin: 12/01/18 09:10 Dose: 1 packet Documented by: Ondansetron HCl (Zofran) 4 mg IV Q8H PRN PRN PRN Reason: NAUSEA/VOMITING Last Admin: 11/30/18 12:00 Dose: 4 mg Documented by: Oxycodone HCl (Oxyir) 5 mg PO Q4H PRN PRN PRN Reason: Moderate Pain (4-6/10) Last Admin: 12/01/18 11:44 Dose: 5 mg Documented by: Polyethylene Glycol (Miralax) 17 gm PO BID [facility] Last Admin: 12/01/18 09:12 Dose: Not Given Documented by: Pregabalin (Lyrica) 75 mg PO DAILY [facility] Last Admin: 12/01/18 09:13 Dose: 75 mg Documented by: Propranolol HCl (Inderal) 10 mg PO DAILY [facility] Last Admin: 12/01/18 09:11 Dose: 10 mg Documented by: Pseudoephedrine HCl (Sudafed) 30 mg PO Q6H PRN PRN PRN Reason: CONGESTION Senna/Docusate Sodium (Senokot-S, Joan-Colace) 2 tablet PO BID [facility] Last Admin: 12/01/18 09:10 Dose: 2 tablet Documented by: Sodium Chloride () 10 - 40 ml IV UD PRN PRN Reason: SALINE FLUSH Last Admin: 11/30/18 12:00 Dose: 10 ml Documented by: Medical Necessity - Tobacco Use Smoking Status: Never smoker Assessment/Plan All Active Problems (Last Reviewed 11/29/18 @ 08:01 by Gen Butt MD) Sepsis due to cellulitis (Acute) Decubitus ulcer of left heel (Acute) Normochromic normocytic anemia (Acute) Diabetic ulcer of left heel with fat layer exposed (Acute) Type 2 diabetes mellitus with diabetic polyneuropathy (Acute) Delayed wound healing (Acute) Lower extremity edema (Acute) Chest pain (Acute) Sepsis (Acute) Cellulitis of left lower extremity (Acute) UTI (urinary tract infection) (Resolved) The patient is a 38 year old F with a significant history of type 2 diabetes; spina bifida of complicated neurogenic bladder status post suprapubic catheter who presented to the emergency department with rigors; fever; stoma site pain and drainage; and was found to have erythema of the left leg consistent with sepsis secondary to probable cellulitis; stoma site infection; ;diabetic wound infection of the left heel; urinary tract infection. 1 sepsis (T1 100.5 Fahrenheit at home, secondary to left leg cellulitis and peritubal suprapubic cystostomy: She also has left heel ulcer, chronic since July 2018. Sepsis (fever,101.5 at home; tachycardia, 108.8, leukocytosis white count of 27.9) secondary to left leg cellulitis with chronic nonhealing ulcer and stoma site cellulitis of suprapubic catheter, possible UTI/colonization: Blood culture x2 are negative for more than 48 hours. Urine culture shows staph aureus, MSSA. Preliminary wound culture shows beta-hemolytic organism and gram-positive organism Blood cultures x2 and wound culture are pending. MRSA nasal screen and wound swab are pending. Linen Room Attendant consult to Dr. Guo/Dr. Faria. on vancomycin and Zosyn in ED. ID and podiatry consult. 2. Depression/anxiety Buspirone and Cymbalta continued 3. Diabetes mellitus, uncontrolled: Glucose is between 1 56-250. Victoza is not formulary here, therefore held. Accu-Chek before meals and at bedtime and cover with Humalog sliding scale. Blood sugars are well controlled. Accu-Chek q. before meals at bedtime with correction scale insulin. On Lantus 10 units of nightly daily. Metformin held secondary to lactic acidosis 4. Chronic constipation, bilateral leg weakness/paraparesis, left more than right secondary to spina bifid aperta status post 2 lumbar surgeries Neuropathy Pregabalin continued Allergies Claritin continued. Migraines and dysrhythmia Propranolol continue holding parameters if patient gets hypotensive. Bilateral lower leg edema: Lasix continued Microbiology Past 72 Hours 11/30/18 08:45 Wound - Aerobic & Anaerobic Swabs Gram Stain - Final 11/30/18 08:45 Wound - Aerobic & Anaerobic Swabs Wound Culture - Preliminary Beta hemolytic organism Gram positive organism 11/29/18 09:25 Suprapubic Tap Urine Culture - Final Staphylococcus aureus 11/28/18 20:42 Blood Culture (Wb) - Left Forearm Blood Culture - Preliminary No growth in 48 hours. 11/28/18 19:55 Blood Culture (Wb) - Anticubital Right Blood Culture - Preliminary No growth in 48 hours. Laboratory Results 11/30/18 12:41: POC Glucose 266 H 11/30/18 16:29: POC Glucose 142 H 11/30/18 21:53: POC Glucose 172 H 12/01/18 03:34: POC Glucose 90 12/01/18 06:48: POC Glucose 94 12/01/18 11:18: POC Glucose 192 H Code Visit Inpatient E&M: 31772 [facility] Hosp L3
[2018-12-01 16:36] LABS: Bedside Glucose 154 mg/dL (70-110)
[2018-12-01] MEDS: Atorvastatin Calcium 10 MG Tablet PO (21:31)
[2018-12-01 21:41] LABS: Bedside Glucose 244 mg/dL (70-110)
[2018-12-02] VITALS (7 sets, daily range): BP systolic 112–139; BP diastolic 67–80; PULSE 39–79; RESP 16; TEMP 36.6–37.2; O2SAT 97–100
[2018-12-02 03:21] LABS: Bedside Glucose 89 mg/dL (70-110)
[2018-12-02] MEDS: oxyCODONE 5 MG Tablet PO ×3 (03:40→20:21)
--- NOTE | 2018-12-02 03:42 | NURSING ---
PT'S TELE ALARMED SEVERAL TIMES FOR HR BELOW 40. PALPATION CONFIRMED BRADYCARDIA. PT DENIES ANY SYMPTOMS. TELE LEADS ADJUSTED, WILL CONTINUE TO MONITOR.
[2018-12-02 06:23] LABS: Anion Gap 8 (5-15); BUN 21 mg/dL (7-18); BUN/Creat Ratio 21.7 RATIO (10-20); Calcium,Total 8.3 mg/dL (8.5-10.1); Chloride 111 mmol/L (98-107); Creatinine, Serum 0.97 mg/dL (0.55-1.02); EST Glomerular Filtration Rate 69 mL/min (>60); Est Glom Filt Rate - Afr Amer 84 mL/min (>60); Glucose 148 mg/dL (74-106); Potassium 4.5 mmol/L (3.5-5.1); Sodium Level 140 mmol/L (136-145)
[2018-12-02 06:55] LABS: Bedside Glucose 91 mg/dL (70-110)
[2018-12-02 07:25] LABS: Absolute Lymphocyte Count 2.74 X10^3/ul (0.83-4.51); Absolute Neutrophil Count 5.5 X10^3/uL (2.0-7.7); Basophil# 0.06 X10^3/uL; Basophil% 0.6 % (0-1); Eosinophil# 0.37 X10^3/uL; Eosinophils% 3.8 % (0-5); Hemoglobin 10.7 g/dl (12.0-15.0); Lymphocyte # 2.74 X10^3/ul (4.0); Lymphocyte % 27.9 % (19-41); Mean Corp Hgb Conc 32.4 g/gl (32-36); Mean Corpuscular Hgb 28.3 pg (27.0-32.0); Mean Corpuscular Volume 87.3 fL (81-99); Mean Platelet Vol. 9.9 fl (6.2-12.0); Monocyte# 0.97 X10^3/uL; Monocyte% 9.9 % (0-10); Neutrophil # 5.45 X10^3/uL (2.7-7.7); Neutrophil % 55.6 % (47-70); Platelet Count 211 K/mm3 (150-450); RBC Distribution Width SD 44.8 fl (35.1-43.9); Red Blood Count 3.78 M/mm3 (4.2-5.4); White Blood Count 9.8 K/mm3 (4.4-11.0)
[2018-12-02 07:26] LABS: POSITIVE COUNT YES; POSITIVE DIFFERENTIAL NO; POSITIVE MORPHOLOGY YES
[2018-12-02 09:06] LABS: Vancomycin, Trough Level 17.2 ug/mL (5.0-15.0)
[2018-12-02] MEDS: DULoxetine Hcl 60 MG Capsule PO (09:30)
--- NOTE | 2018-12-02 09:30 | PN_ITS ---
Patient Problems: Active and Suspected Problems (Last Reviewed 11/29/18 @ 08:01 by Gen Butt MD) Sepsis (Acute) Cellulitis of left lower extremity (Acute) Malnutrition (Suspected) Subjective: The patient cellulitis has gone better. Around suprapubic cystostomy, mild skin loss around the tube but also looks much better. Heart rate is running low 40 to 48/min. Blood pressure is stable. No fever Objective: General: Alert, Oriented x3, Cooperative HEENT: Atraumatic, PERRLA, EOMI, Normocephalic Neck: Supple, No JVD, Negative Carotid Bruits Lungs: Clear to auscultation, Normal air movement, Diminished Cardiovascular: Regular rate, Regular Rhythm, Normal S1, Normal S2, No murmurs Abdomen: Bowel Sounds Present, Soft, Non Tender, Non-Distended Extremities: Capillary Refill Less than 3 Seconds, Edema Skin: Ulcer lower left heel and around suprapubic cystostomy. Slough has been cleaned out. Mild skin loss around suprapubic tube. Musculoskeletal: No Tenderness to Palpation of Joints or Extremities, Arthritic Changes, Muscle Wasting, Paraparesis. Left more than right. Neurological: Cranial nerves II-XII grossly intact, Deep Tendon Reflexes 2+/4 and Symmetrical, Neuro grossly intact Psych/Mental Status: Normal Affect, Appropriate Vitals/I&O's: Vital Signs Temp Pulse Resp BP Pulse Ox 98.6 F 48 L 16 116/69 99 12/02/18 07:38 12/02/18 07:48 12/02/18 07:38 12/02/18 07:38 12/02/18 07:38 Oxygen Delivery Method Room Air Weight: 227 lb 4.745 oz Body Mass Index (BMI) 41.5 Finger Stick Blood Glucose 187 Intake and Output for Last 24 Hours 11/30/18 12/01/18 12/02/18 23:59 23:59 23:59 Intake Total 2795.9 / 4258.9 3438 / 3438 1074 / 1074 Output Total 3100 / 3900 1925 / 1925 1200 / 1200 Balance -304.1 / 358.9 1513 / 1513 -126 / -126 Microbiology Past 72 Hours 11/30/18 08:45 Wound - Aerobic & Anaerobic Swabs Gram Stain - Final 11/30/18 08:45 Wound - Aerobic & Anaerobic Swabs Wound Culture - Preliminary Staphylococcus aureus Gram positive organism 11/29/18 09:25 Suprapubic Tap Urine Culture - Final Staphylococcus aureus 11/28/18 20:42 Blood Culture (Wb) - Left Forearm Blood Culture - Preliminary No growth in 48 hours. 11/28/18 19:55 Blood Culture (Wb) - Anticubital Right Blood Culture - Preliminary No growth in 48 hours. Laboratory Results 12/01/18 11:18: POC Glucose 192 H 12/01/18 16:25: POC Glucose 154 H 12/01/18 21:30: POC Glucose 244 H 12/02/18 03:12: POC Glucose 89 12/02/18 05:22: WBC Cancelled, Corrected WBC Cancelled, RBC Cancelled, Hgb Cancelled, Hct Cancelled, MCV Cancelled, MCH Cancelled, MCHC Cancelled, RDW Cancelled, RDW Differential Cancelled, Plt Count Cancelled, MPV Cancelled, Immature Gran % (Auto) Cancelled, Neut % (Auto) Cancelled, Lymph % (Auto) Cancelled, [place] % (Auto) Cancelled, Eos % (Auto) Cancelled, Baso % (Auto) Cancelled, Absolute Neuts (auto) Cancelled, Absolute Lymphs (auto) Cancelled, Total Counted Cancelled, Neutrophils % (Manual) Cancelled, Band Neutrophils % Cancelled, Lymphocytes % (Manual) Cancelled, Monocytes % (Manual) Cancelled, Eosinophils % (Manual) Cancelled, Basophils % (Manual) Cancelled, Metamyelocytes % Cancelled, Myelocytes % Cancelled, Promyelocytes % Cancelled, Blast Cells % Cancelled, Plasma Cell % (Manual) Cancelled, Other Cells % Cancelled, Nucleated RBCs/100 WBC Cancelled, Differential Comment Cancelled, Diff Path Review Cancelled, Hypersegmented Neuts Cancelled, Atypical Lymphocytes Cancelled, Reactive Lymphocytes Cancelled, Smudge Cells Cancelled, Toxic Granulation Cancelled, Toxic Vacuolation Cancelled, Dohle Bodies Cancelled, Haley Rods Cancelled, Platelet Estimate Cancelled, Plt Morphology Comment Cancelled, RBC Morphology Cancelled, Polychromasia Cancelled, Hypochromasia Cancelled, Poikilocytosis Cancelled, Basophilic Stippling Cancelled, Anisocytosis Cancelled, Microcytosis Cancelled, Macrocytosis Cancelled, Spherocytes Cancelled, Sickle Cells Cancelled, Target Cells Cancelled, Tear Drop Cells C ancelled, Ovalocytes Cancelled, Stomatocytes Cancelled, Aguilera-Cheriton Bodies Cancelled, [place] Cells Cancelled, Bite Cells Cancelled, Crenated Cell Cancelled, Acanthocytes (Spur) Cancelled, Rouleaux Cancelled, Schistocytes Cancelled 12/02/18 05:22: Sodium 140, Potassium 4.5, Chloride 111 H, Carbon Dioxide 21.0, Anion Gap 8, BUN 21 H, Creatinine 0.97, Estim Creat Clear Calc 62.80, Est GFR (MDRD) Af Amer 84, Est GFR (MDRD) Non-Af 69, BUN/Creatinine Ratio 21.7 H, Glucose 148 H, Calcium 8.3 L 12/02/18 06:47: POC Glucose 91 12/02/18 06:56: WBC 9.8, RBC 3.78 L, Hgb 10.7 L, Hct 33.0 L, MCV 87.3, MCH 28.3, MCHC 32.4, RDW 14.0, RDW Differential 44.8 H, Plt Count 211, MPV 9.9, Immature Gran % (Auto) 2.200 H, Neut % (Auto) 55.6, Lymph % (Auto) 27.9, Poc[place] % (Auto) 9.9, Eos % (Auto) 3.8, Baso % (Auto) 0.6, Absolute Neuts (auto) 5.5, Absolute Lymphs (auto) 2.74, Total Counted Not Reportable, Diff Path Review September12/02/18 08:05: Vancomycin Trough 17.2 H Current Medications Acetaminophen (Tylenol) 650 mg PO Q6H PRN PRN PRN Reason: Mild Pain (1-3)/Temp > 100.7 F Atorvastatin Calcium (Lipitor) 10 mg PO QHS [facility] Last Admin: 12/01/18 21:31 Dose: 10 mg Documented by: Buspirone HCl (Buspar) 15 mg PO BID [facility] Last Admin: 12/01/18 21:31 Dose: 15 mg Documented by: Dextrose (D50w Syringe) 0 gm IV X1 PRN; Protocol PRN Reason: Hypoglycemia Duloxetine HCl (Cymbalta) 60 mg PO DAILY [facility] Last Admin: 12/01/18 09:11 Dose: 60 mg Documented by: Enoxaparin Sodium (Lovenox) 40 mg SC DAILY@1000 [facility] Last Admin: 12/01/18 09:12 Dose: 40 mg Documented by: Furosemide (Lasix) 40 mg PO DAILY [facility] Last Admin: 12/01/18 09:11 Dose: 40 mg Documented by: Glucagon () 1 mg IM .X1 PRN PRN Reason: Hypoglycemia Vancomycin IV Pharmacy to Dose (1,000 ea/ Sodium Chloride) 500 mls @ 250 mls/hr IV PRN PRN; Protocol Sodium Chloride () 250 mls @ 15 mls/hr IV .[id number] PRN PRN Reason: SALINE FLUSH Vancomycin HCl 1,250 mg/ (Sodium Chloride) 275 mls @ 167 mls/hr IV Q12H [facility] Last Admin: 12/01/18 21:26 Dose: 167 mls/hr Documented by: Ampicillin Sodium/Sulbactam (Sodium 3 gm/ Sodium Chloride) 112 mls @ 150 mls/hr IV Q6 [facility] Last Admin: 12/02/18 06:24 Dose: 150 mls/hr Documented by: Insulin Glargine (Lantus (Bkc)) 10 units SC BID [facility] Last Admin: 12/01/18 21:32 Dose: 10 units Documented by: Insulin Human Lispro (Humalog Kwikpen ([facility])) 0 unit SC ACHS & 3AM [facility]; Protocol Last Admin: 12/02/18 06:48 Dose: Not Given Documented by: Loratadine (Claritin) 10 mg PO DAILY [facility] Last Admin: 12/01/18 09:10 Dose: 10 mg Documented by: Melatonin (Melatonin) 3 mg PO QHS PRN PRN PRN Reason: INSOMNIA Morphine Sulfate () 2 mg IV Q3H PRN PRN PRN Reason: Severe pain (7-10/10) Last Admin: 11/29/18 18:29 Dose: 2 mg Documented by: Nutritional Formula (Ty - [place] Flavor) 1 packet PO BIDCM [facility] Last Admin: 12/02/18 07:50 Dose: Not Given Documented by: Ondansetron HCl (Zofran) 4 mg IV Q8H PRN PRN PRN Reason: NAUSEA/VOMITING Last Admin: 11/30/18 12:00 Dose: 4 mg Documented by: Oxycodone HCl (Oxyir) 5 mg PO Q4H PRN PRN PRN Reason: Moderate Pain (4-6/10) Last Admin: 12/02/18 03:40 Dose: 5 mg Documented by: Polyethylene Glycol (Miralax) 17 gm PO BID [facility] Last Admin: 12/02/18 07:50 Dose: Not Given Documented by: Pregabalin (Lyrica) 75 mg PO DAILY [facility] Last Admin: 12/01/18 09:13 Dose: 75 mg Documented by: Propranolol HCl (Inderal) 10 mg PO DAILY [facility] Last Admin: 12/01/18 09:11 Dose: 10 mg Documented by: Pseudoephedrine HCl (Sudafed) 30 mg PO Q6H PRN PRN PRN Reason: CONGESTION Senna/Docusate Sodium (Senokot-S, Jaon-Colace) 2 tablet PO BID [facility] Last Admin: 12/01/18 21:32 Dose: Not Given Documented by: Sodium Chloride () 10 - 40 ml IV UD PRN PRN Reason: SALINE FLUSH Last Admin: 11/30/18 12:00 Dose: 10 ml Documented by: Medical Necessity - Tobacco Use Smoking Status: Never smoker Assessment/Plan All Active Problems (Last Reviewed 11/29/18 @ 08:01 by Gen Butt MD) Sepsis due to cellulitis (Acute) Decubitus ulcer of left heel (Acute) Normochromic normocytic anemia (Acute) Diabetic ulcer of left heel with fat layer exposed (Acute) Type 2 diabetes mellitus with diabetic polyneuropathy (Acute) Delayed wound healing (Acute) Lower extremity edema (Acute) Chest pain (Acute) Sepsis (Acute) Cellulitis of left lower extremity (Acute) UTI (urinary tract infection) (Resolved) The patient is a 38 year old F with a significant history of type 2 diabetes; spina bifida of complicated neurogenic bladder status post suprapubic catheter who presented to the emergency department with rigors; fever; stoma site pain and drainage; and was found to have erythema of the left leg consistent with sepsis secondary to probable cellulitis; stoma site infection; ;diabetic wound infection of the left heel; urinary tract infection. 1 sepsis (T1 100.5 Fahrenheit at home, secondary to left leg cellulitis and peritubal suprapubic cystostomy: She also has left heel ulcer, chronic since July 2018. Sepsis (fever,101.5 at home; tachycardia, 108.8, leukocytosis white count of 27.9) secondary to left leg cellulitis with chronic nonhealing ulcer and stoma site cellulitis of suprapubic catheter, possible UTI/colonization: Blood culture x2 are negative for more than 48 hours. Urine culture shows staph aureus, MSSA. Preliminary wound culture shows staph aureus rare growth with 1+ gram-positive organism. MRSA PCR is negative. Leukocytosis has resolved Supervisor Testing consult to Dr. Guo/Dr. Faria. on vancomycin and Zosyn in ED. ID and podiatry consult. The foot x-ray was reviewed and does not show acute fracture or dislocation, soft tissue emphysema or adjacent ulcer site osseous destruction. This was discussed with Dr. Kaplan 2. Depression/anxiety Buspirone and Cymbalta continued 3. Diabetes mellitus, uncontrolled: Glucose is between 1 56-250. Victoza is not formulary here, therefore held. Accu-Chek before meals and at bedtime and cover with Humalog sliding scale. Blood sugars are well controlled. Accu-Chek q. before meals at bedtime with correction scale insulin. On Lantus 10 units of nightly daily. Metformin held secondary to lactic acidosis 4. Chronic constipation, bilateral leg weakness/paraparesis, left more than right secondary to spina bifid aperta status post 2 lumbar surgeries Neuropathy Pregabalin continued Allergies Claritin continued. Migraines and dysrhythmia Propranolol continue holding parameters if patient gets hypotensive. Bilateral lower leg edema: Lasix continued Signout: Need ID follow-up to recommend antibiotic for discharge most probably oral antibiotics for 10 days. Wound culture still preliminary but most probably MSSA and gram-positive organism. Microbiology Past 72 Hours 11/30/18 08:45 Wound - Aerobic & Anaerobic Swabs Gram Stain - Final 11/30/18 08:45 Wound - Aerobic & Anaerobic Swabs Wound Culture - Preliminary Beta hemolytic organism Gram positive organism 11/29/18 09:25 Suprapubic Tap Urine Culture - Final Staphylococcus aureus 11/28/18 20:42 Blood Culture (Wb) - Left Forearm Blood Culture - Preliminary No growth in 48 hours. 11/28/18 19:55 Blood Culture (Wb) - Anticubital Right Blood Culture - Preliminary No growth in 48 hours. Laboratory Results 11/30/18 12:41: POC Glucose 266 H 11/30/18 16:29: POC Glucose 142 H 11/30/18 21:53: POC Glucose 172 H 12/01/18 03:34: POC Glucose 90 12/01/18 06:48: POC Glucose 94 12/01/18 11:18: POC Glucose 192 H Code Visit Inpatient E&M: 35138 Subs Hosp L3
[2018-12-02] MEDS: Propranolol 10 MG Tablet PO (09:31)
[2018-12-02] MEDS: Loratadine 10 MG Tablet PO (09:31)
[2018-12-02] MEDS: busPIRone 15 MG TABLET PO ×2 (09:31→23:18)
[2018-12-02] MEDS: Furosemide 40 MG Tablet PO (09:31)
[2018-12-02] MEDS: Enoxaparin 40 MG/0.4 ML Syringe SC (09:32)
[2018-12-02] MEDS: Pregabalin 75 MG Capsule PO (09:33)
--- NOTE | 2018-12-02 09:34 | PCM.RX.CS ---
Consult Pharmacy has been consulted to manage selected antiobiotic: Vancomycin Type of Consult: Follow-up Suspected Infection: Skin/Soft tissue Prior Doses of Antibiotics Received/Current Regimen: Vancomycin 1250mg IV x 3 doses Labs: Sodium 140 mmol/L (136-145) 12/02/18 05:22 Potassium 4.5 mmol/L (3.5-5.1) 12/02/18 05:22 Chloride 111 mmol/L (98-107) H 12/02/18 05:22 Carbon Dioxide 21.0 mmol/L (21.0-32.0) 12/02/18 05:22 8 (5-15) 12/02/18 05:22 BUN 21 mg/dL (7-18) H 12/02/18 05:22 0.97 mg/dL (0.55-1.02) 12/02/18 05:22 Est GFR (MDRD) Af Amer 84 mL/min (>60) 12/02/18 05:22 Est GFR (MDRD) Non-Af 69 mL/min (>60) 12/02/18 05:22 21.7 RATIO (10-20) H 12/02/18 05:22 Glucose 148 mg/dL (74-106) H 12/02/18 05:22 Vancomycin Trough 17.2 ug/mL (5.0-15.0) H 12/02/18 08:05 Microbiology: Microbiology 11/30/18 08:45 Wound - Aerobic & Anaerobic Swabs Gram Stain - Final 11/30/18 08:45 Wound - Aerobic & Anaerobic Swabs Wound Culture - Preliminary Staphylococcus aureus Gram positive organism 11/29/18 09:25 Suprapubic Tap Urine Culture - Final Staphylococcus aureus 11/28/18 20:42 Blood Culture (Wb) - Left Forearm Blood Culture - Preliminary No growth in 48 hours. 11/28/18 19:55 Blood Culture (Wb) - Anticubital Right Blood Culture - Preliminary No growth in 48 hours. Weight used for dosin kg Goal Trough: 15-20 mcg/mL Pharmacy Plan for Drug Dosing: Goal trough for pt is ordered to be 15-20. Pt's Vancomycin was increased on 11/30/18 to 1250mg q12h (0900,2100) due to a low trough level. Pt has received 3 doses of the increased dose. New trough level came back at 17.2. Recommend keeping pt at same dose of Vancomycin 1250mg IV q12h and checking trough in 4 days (12/06/18 at 0830) Pharmacy Service will continue to monitor and adjust dosing as required. Follow-Up Labs: Trough Vancomycin - 12/06/18 at 0830
[2018-12-02 11:26] LABS: Bedside Glucose 121 mg/dL (70-110)
[2018-12-02] MEDS: Insulin Lispro 100 UNIT/ML INSULN.PEN SC ×2 (16:02→23:19)
[2018-12-02 18:00] LABS: Bedside Glucose 191 mg/dL (70-110)
[2018-12-02 23:10] LABS: Bedside Glucose 170 mg/dL (70-110)
[2018-12-02] MEDS: Atorvastatin Calcium 10 MG Tablet PO (23:18)
[2018-12-03 02:00] VITALS: BP 103/62; PULSE 52; RESP 16; TEMP 36.6; O2SAT 99
[2018-12-03 03:10] LABS: Bedside Glucose 128 mg/dL (70-110)
[2018-12-03 06:41] LABS: Bedside Glucose 100 mg/dL (70-110)
--- NOTE | 2018-12-03 08:44 | NURSING ---
Script for wound care supplies on chart if needed. pt tolerated dressing changes well.
--- NOTE | 2018-12-03 09:37 | NURSING ---
wound photo: left heel
[2018-12-03 09:40] VITALS: BP 108/67; PULSE 52; RESP 16; TEMP 36.9; O2SAT 99
[2018-12-03] MEDS: Furosemide 40 MG Tablet PO (09:45)
[2018-12-03] MEDS: Propranolol 10 MG Tablet PO (09:45)
[2018-12-03] MEDS: Enoxaparin 40 MG/0.4 ML Syringe SC (09:45)
[2018-12-03] MEDS: Loratadine 10 MG Tablet PO (09:45)
[2018-12-03] MEDS: DULoxetine Hcl 60 MG Capsule PO (09:45)
[2018-12-03] MEDS: busPIRone 15 MG TABLET PO (09:45)
[2018-12-03] MEDS: Pregabalin 75 MG Capsule PO (09:53)
--- NOTE | 2018-12-03 11:11 | PCM.DC ---
- Discharge Diagnoses Current Active Problems: Current Active and Chronic Problems (Last Reviewed 11/29/18 @ 08:01 by Gen Butt MD) Sepsis (Acute) Ulcer of left heel and midfoot with fat layer exposed (Chronic) Cellulitis of left lower extremity (Acute) Diabetes mellitus with neuropathy (Chronic) Edema of left lower extremity (Chronic) You will use the following diet at home:: Calorie/Carbohydrate Controlled (specify 1200, 1400, etc) - 1800 Your food should be the consistency of: Regular Your liquids should be the consistency of: Regular/Thin Discharge Activity: Return to Normal Activity Weight Bearing Status: Weight bearing as tolerated Call your doctor if you observe: Fever of 101 or Higher, Coldness, Increased Pain, Swelling in the ankles Instructions: Understanding Sepsis, Cellulitis Allergies/Adverse Reactions: Allergies mushroom Allergy (Verified 11/28/18 19:32) Anaphylaxis peanut Allergy (Verified 11/28/18 19:32) Anaphylaxis Gadolinium-MRI Contrast Medium Adverse Reaction (Verified 11/28/18 19:32) Vomiting Medications to take at Discharge metFORMIN (XR) [Glucophage Xr] 1,000 mg PO BID 06/19/16 Atorvastatin Calcium [Lipitor] 10 mg PO QHS 11/07/17 Pseudoephedrine HCl [Sudogest] 30 mg PO Q6H PRN PRN 01/21/18 Pregabalin [Lyrica] 75 mg PO DAILY 02/25/18 Buspirone HCl 15 mg PO BID 04/11/18 Polyethylene Glycol 3350 [Miralax] 17 gm PO DAILY PRN 04/13/18 Liraglutide [Victoza] 1.2 mg SQ DAILY 07/03/18 Duloxetine HCl 60 mg PO DAILY 08/28/18 Furosemide [Lasix] 20 mg PO DAILY@1700 08/28/18 Furosemide [Lasix] 40 mg PO DAILY 08/28/18 Loratadine [Claritin] 10 mg PO DAILY 08/28/18 Propranolol HCl 10 mg PO DAILY 08/28/18 Oxybutynin [Ditropan] 15 mg PO DAILY 10/23/18 Doxycycline 100 mg PO BID #14 cap 12/03/18 The following prescriptions were given: Doxycycline 100 mg PO BID #14 cap Transmission Status: Pending to [facility]30 Primary Care Physician: Will Shukla MD [Primary Care Provider] - Please follow up with your Primary Care Physician in: one week Test Results: Test results from this visit will be discussed in further detail at your follow-up appointment, if applicable. Please Follow Up With: Alpesh Alex MD When: 1-2 weeks Please Follow Up With: Marcela Michael DPM When: 1-2 weeks Proposed Discharge Date: 12/03/18
--- NOTE | 2018-12-03 11:14 | DS.PCM_ITS ---
Discharge Date and Diagnosis Date of Admission: 11/28/18 Date of Discharge: 12/03/18 - Primary Discharge Diagnosis Active and Suspected Problems (Last Reviewed 11/29/18 @ 08:01 by Gen Butt MD) Sepsis (Acute) Cellulitis of left lower extremity (Acute) Malnutrition (Suspected) - Secondary Discharge Diagnosis Chronic Problems (Last Reviewed 11/29/18 @ 08:01 by Gen Butt MD) Ulcer of left heel and midfoot with fat layer exposed (Chronic) Diabetes mellitus with neuropathy (Chronic) Edema of left lower extremity (Chronic) Constipation (Chronic) Neurogenic bowel (Chronic) Neurogenic bladder (Chronic) Chronic back pain (Chronic) History of migraine (Chronic) Depression (Chronic) 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 Will follow, no need yet for cysto retros etc. But this may change in future Jan Re-admitted consult dictated Hospital Course and Treatment Imaging Results: Diagnostic Data Chest X-Ray 11/28/18 20:05 IMPRESSION: Normal x-ray examination of the chest. Electronically Signed: Ki Ballesteros MD at 20:28 EDT , Service support , Ankle X-Ray 11/30/18 11:56 IMPRESSION: Diffuse soft tissue swelling. Calcaneal spur. Electronically Signed: Stephan Sood, at 15:14 EDT , Service support , Foot X-Ray 11/30/18 12:50 IMPRESSION: Diffuse soft tissue swelling. 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 Electronically Signed: Stephan Sood, at 15:15 EDT , Service support , Consultations 11/28/18 22:54 Consult: Onc/Wound/art librarian Routine Comment: Reason for Consult:: Wound care Infectious disease- Dr Alex Podiatry- Dr Michael Operations: None Procedures: None Summary of Care Provided: The patient is a 38 year old F with a past medical history as listed and include spina bifida complicated with neurogenic bladder and status post suprapubic catheter as well as type 2 diabetes mellitus. She was admitted through the ED on 11/28/2018 with a complaint of rigors and malaise of one day duration. She also assisted fever with highest temperature being around 101.5 and also complained of chest pain. She had been treated in the ED during the week prior to admission for possible suprapubic stoma site infection. She also reported of pain and bloody drainage from his suprapubic catheter. Was also noted that her left lower extremity was red. She was admitted and managed for sepsis which was thought to be due to infection of the stoma site of the suprapubic catheter and left lower extremity cellulitis is as well as UTI. She was started on IV vancomycin and Unasyn in the ED; Unasyn was broadened to Zosyn after admission and vancomycin was continued. Infectious disease and podiatry were also consulted. Elevated white cell count trended down urine cultures Staphylococcus aureus. Wound PCR was positive for MSSA. Antibiotics were narrowed down to vancomycin and Unasyn. X-ray was negative for osteomyelitis. Wound culture Staphylococcus aureus and Staphylococcus epidermidis. Blood cultures were negative after 48 hours. Patient's fever resolved and SIRS criteria resolved. She remained stable and was discharged home on 12/03/2018 with a prescription for p.o. doxycycline based on sensitivity results. She is to take doxycycline for 7 day.. She is to follow-up with her primary care doctor infectious diseases and podiatry. Patient seen and examined prior to discharge. She felt well and had no complaints. Review of systems is otherwise negative. Labs and vitals reviewed. Home medications reviewed and reconciled. o/e Vital Signs Height 5 ft 2 in Weight: 227 lb 4.745 oz Weight in Pounds 227.3 lbs Pulse Ox 99 Temperature 98.5 F Pulse Rate 52 Respiratory Rate 16 Blood Pressure 108/67 Blood Pressure Position Semi-Fowlers [] General: Alert, Oriented x3, Cooperative HEENT: Atraumatic, PERRLA, EOMI, Normocephalic Neck: Supple, No JVD, Negative Carotid Bruits Lungs: Clear to auscultation, Normal air movement, Diminished Cardiovascular: Regular rate, Regular Rhythm, Normal S1, Normal S2, No murmurs Abdomen: Bowel Sounds Present, Soft, Non Tender, Non-Distended Extremities: Capillary Refill Less than 3 Seconds, Edema Skin: Ulcer lower left heel and around skin excoriation around suprapubic cystostomy. Suprapubic catheter in place Musculoskeletal: No Tenderness to Palpation of Joints or Extremities, RLE wrapped in bandage Neurological: Cranial nerves II-XII grossly intact, Deep Tendon Reflexes 2+/4 and Symmetrical, Neuro grossly intact Psych/Mental Status: Normal Affect, Appropriate Plan as above. She is to follow up with PCP, ID and podiatry. - Physical Exam Vital Signs Temp Pulse Resp BP Pulse Ox 97.8 F 52 L 16 103/62 99 12/03/18 02:00 12/03/18 02:00 12/03/18 02:00 12/03/18 02:00 12/03/18 02:00 Oxygen Delivery Method Room Air Weight: 227 lb 4.745 oz Body Mass Index (BMI) 41.5 Finger Stick Blood Glucose 187 Intake and Output for Last 24 Hours 12/01/18 12/02/18 12/03/18 23:59 23:59 23:59 Intake Total 3438 / 3438 2374 / 3270 1187 / 1187 Output Total 1925 / 1925 2400 / 2950 1050 / 1050 Balance 1513 / 1513 -26 / 320 137 / 137 Microbiology Past 72 Hours 11/30/18 08:45 Gram Stain - Final Wound - Aerobic & Anaerobic Swabs Wound Culture - Final Staphylococcus aureus Staphylococcus epidermidis Anaerobic Culture - Preliminary Checking for anaerobes, further studies to follow. 11/29/18 09:25 Urine Culture - Final Suprapubic Tap Staphylococcus aureus 11/28/18 20:42 Blood Culture - Preliminary Blood Culture (Wb) - Left Forearm No growth in 48 hours. 11/28/18 19:55 Blood Culture - Preliminary Blood Culture (Wb) - Anticubital Right No growth in 48 hours. POC Glucose 12/03/18 12/03/18 12/02/18 06:33 03:04 23:03 POC Glucose 100 128 H 170 H 12/02/18 12/02/18 16:00 11:21 POC Glucose 191 H 121 H Discharge Diet: 1800 Calorie Control Diet Discharge Activity: Return to Normal Activity Weight Bearing Status: Weight bearing as tolerated Call your doctor if you observe: Fever of 101 or Higher, Coldness, Increased Pain, Swelling in the ankles Home Medications: Medications to take at Discharge metFORMIN (XR) [Glucophage Xr] 1,000 mg PO BID 06/19/16 Atorvastatin Calcium [Lipitor] 10 mg PO QHS 11/07/17 Pseudoephedrine HCl [Sudogest] 30 mg PO Q6H PRN PRN 01/21/18 Pregabalin [Lyrica] 75 mg PO DAILY 02/25/18 Buspirone HCl 15 mg PO BID 04/11/18 Polyethylene Glycol 3350 [Miralax] 17 gm PO DAILY PRN 04/13/18 Liraglutide [Victoza] 1.2 mg SQ DAILY 07/03/18 Duloxetine HCl 60 mg PO DAILY 08/28/18 Furosemide [Lasix] 20 mg PO DAILY@1700 08/28/18 Furosemide [Lasix] 40 mg PO DAILY 08/28/18 Loratadine [Claritin] 10 mg PO DAILY 08/28/18 Propranolol HCl 10 mg PO DAILY 08/28/18 Oxybutynin [Ditropan] 15 mg PO DAILY 10/23/18 Doxycycline 100 mg PO BID #14 cap 12/03/18 Following Prescrptions Were Given to Patient: Doxycycline 100 mg PO BID #14 cap Transmission Status: Received by [email or web address] #30 Primary Care Physician: Will Shukla MD [Primary Care Provider] - Please follow up with your Primary Care Physician in: one week Please Follow Up With: Alpesh Alex MD When: 1-2 weeks Please Follow Up With: Marcela Michael DPM When: 1-2 weeks Patient Instructions: Cellulitis, Understanding Sepsis Disposition: Home Minutes spent on discharge:: 40 Patient Condition:: Stable Medical Necessity - Tobacco Use Smoking Status: Never smoker Meaningful Use Info Meaningful Use Diagnoses (Choose all that apply): None applicable Code Visit Inpatient E&M: 68051 Disch Hosp
--- NOTE | 2018-12-03 11:22 | PCA ---
called doctor solomon office to scedule patient an aptointment and she has to talk to doctor himself to see if it is okay to see patient here at the [place] location and they will either call alida on 12/04 or 12/05 to let her know what apt time will be
[2018-12-03 12:31] LABS: Bedside Glucose 139 mg/dL (70-110)
--- NOTE | 2018-12-03 13:04 | PCM.PN.ID ---
Patient Problems: Active and Suspected Problems (Last Reviewed 11/29/18 @ 08:01 by Gen Butt MD) Sepsis (Acute) Cellulitis of left lower extremity (Acute) Malnutrition (Suspected) Subjective: Feeling better, no fever, leg less red and sore - Physical Exam General: Alert, Cooperative, No apparent distress Lungs: Clear to auscultation, Normal air movement Cardiovascular: Regular rate, Regular Rhythm Abdomen: Soft, Non Tender, Non-Distended Skin: Rash Present - improved Vital Signs Temp Pulse Resp BP Pulse Ox 98.5 F 52 L 16 108/67 99 12/03/18 09:40 12/03/18 09:40 12/03/18 09:40 12/03/18 09:40 12/03/18 09:40 Oxygen Delivery Method Room Air Weight: 103.1 kg Body Mass Index (BMI) 41.5 Finger Stick Blood Glucose 187 Intake and Output for Last 24 Hours 12/01/18 12/02/18 12/03/18 23:59 23:59 23:59 Intake Total 3438 / 3438 2374 / 3270 1988 / 1988 Output Total 1925 / 1925 2400 / 2950 2049 / 2049 Balance 1513 / 1513 -26 / 320 -61 / -61 Microbiology Past 72 Hours 11/30/18 08:45 Gram Stain - Final Wound - Aerobic & Anaerobic Swabs Wound Culture - Final Staphylococcus aureus Staphylococcus epidermidis Anaerobic Culture - Preliminary Checking for anaerobes, further studies to follow. 11/29/18 09:25 Urine Culture - Final Suprapubic Tap Staphylococcus aureus 11/28/18 20:42 Blood Culture - Preliminary Blood Culture (Wb) - Left Forearm No growth in 48 hours. 11/28/18 19:55 Blood Culture - Preliminary Blood Culture (Wb) - Anticubital Right No growth in 48 hours. POC Glucose 12/03/18 12/03/18 12/03/18 12:14 06:33 03:04 POC Glucose 139 H 100 128 H 12/02/18 12/02/18 23:03 16:00 POC Glucose 170 H 191 H Medical Necessity - Tobacco Use Smoking Status: Never smoker Route of nutrition/ use of supplements: [] Nutritional Intake: [] IV Site: [] Morales Catheter: [] - Assessment/Plan Antibiotics: [] Assessment/Plan: [] Active and Suspected Problems (Last Reviewed 11/29/18 @ 08:01 by Gen Butt MD) Sepsis (Acute) Cellulitis of left lower extremity (Acute) Malnutrition (Suspected) Improving wbc. Ucx with MSSA Wound pcr with mssa and MRSE. Seen by Dr. Michael. Ok for d/c home on one week of po doxy. ID followup prn at wound center. Will follow, d/w Dr. Sams
--- NOTE | 2018-12-03 13:43 | CASEMGMT ---
RN CM in to discuss discharge needs with patient. Patient states that she has someone at home to assist with dressing changes. Denies need for HHC at this time. Patient denies further needs at this time.
[2018-12-03 14:00] VITALS: BP 121/86; PULSE 69; RESP 14; TEMP 36.9; O2SAT 100
[2018-12-04 10:26] LABS: Pathologist Review Reviewed
--- NOTE | 2018-12-04 14:20 | CASEMGMT ---
Case Management DC Follow Up Call: DC Date: 12/03/18 DC Dx: Sepsis (Acute), Cellulitis of left lower extremity (Acute), Malnutrition (Suspected) DC Disposition: Home LACE/STRATA: 11/09 Called Patient listed Cell Phone, Automatically directed to VM with no patient authentication and therefore no VM left. Gerardo Pavon RNCM
== END 2018-12-03 14:34 | disposition home or self-care (01) | DRG 854 ==
LOC: ED 20:25 → PCU 11-29 07:59 → MS3 11-30 07:09 → PCU 11-30 07:52 → MS3 12-03 07:10
PROVIDERS: Internal Medicine; Admitting Provider Hospitalist; Emergency Provider Emergency Medicine; Family Provider Family Medicine; PCP Family Medicine; Referring Provider Hospitalist; Visit Provider Student in an Organized Health Care Education/Training Program
DX: A41.9 Sepsis, unspecified organism (principal); T83.510A Infection and inflammatory reaction due to cystostomy catheter, initial encounter; N39.0 Urinary tract infection, site not specified; L03.116 Cellulitis of left lower limb; K59.2 Neurogenic bowel, not elsewhere classified; Z68.41 Body mass index [BMI] 40.0-44.9, adult; N99.511 Cystostomy infection; L97.422 Non-pressure chronic ulcer of left heel and midfoot with fat layer exposed; G82.20 Paraplegia, unspecified; N31.9 Neuromuscular dysfunction of bladder, unspecified; E66.01 Morbid (severe) obesity due to excess calories; Q05.7 Lumbar spina bifida without hydrocephalus; E11.42 Type 2 diabetes mellitus with diabetic polyneuropathy; E11.621 Type 2 diabetes mellitus with foot ulcer; Y84.6 Urinary catheterization as the cause of abnormal reaction of the patient, or of later complication, without mention of misadventure at the time of the procedure; Z79.84 Long term (current) use of oral hypoglycemic drugs; E11.65 Type 2 diabetes mellitus with hyperglycemia; B95.61 Methicillin susceptible Staphylococcus aureus infection as the cause of diseases classified elsewhere; Z87.440 Personal history of urinary (tract) infections
CPT/HCPCS: 36415; 71046; 73610; 73630; 80048; 80053; 80202; 81001; 82962; 83605; 85025; 85027; 87040; 87070; 87075; 87077; 87086; 87088; 87186; 87205; 87640; 87641; 93005; 94760; 97802; 99284; J7030; J7040; J7050; A4216; J0295; J2405

== ENCOUNTER 2018-12-08 19:19 | Emergency (ER) | payer MEDICARE, MEDICAID, SELFPAY ==
[2018-11-28 22:59] VITALS: BMI 41.5
[2018-12-08] VITALS (7 sets, daily range): BP systolic 110–139; BP diastolic 67–98; PULSE 74–112; RESP 16–19; TEMP 37–37.2; O2SAT 96–100; BMI 41.8
[2018-12-08] MEDS: 0.9% Normal Saline 1,000 ML 1000 ML IV (20:08)
[2018-12-08] MEDS: Morphine 4 MG/ML Syringe IV (20:08)
[2018-12-08] MEDS: Ondansetron 4 MG/2 ML Vial IV (20:09)
[2018-12-08 20:42] LABS: Bacteria 0 SEEN /hpf (None Seen); Color, Urine Yellow (Yellow); Glucose, Dipstick 100 mg/dl (Normal); Ketone-Dipstick 5 mg/dl (Negative); Leukocyte Esterase-Dipstick 100 /ul (Negative); Nitrite-Dipstick Negative (Negative); Occult Blood-Urine 150 /ul (Negative); Protein-Dipstick 100 mg/dl (Negative); Specific Gravity, Urine 1.025 (1.002-1.030); Urine Clarity Sl. Cloudy (Clear); Urine Urobilinogen 1 mg/dl (Normal)
[2018-12-08 20:45] LABS: Absolute Lymphocyte Count 3.19 X10^3/ul (0.83-4.51); Absolute Neutrophil Count 7.2 X10^3/uL (2.0-7.7); Basophil# 0.09 X10^3/uL; Basophil% 0.7 % (0-1); Eosinophils% 4.1 % (0-5); Hemoglobin 12.6 g/dl (12.0-15.0); Lymphocyte # 3.19 X10^3/ul (4.0); Lymphocyte % 26.1 % (19-41); Mean Corp Hgb Conc 33.2 g/gl (32-36); Mean Corpuscular Hgb 28.7 pg (27.0-32.0); Mean Corpuscular Volume 86.6 fL (81-99); Mean Platelet Vol. 11.1 fl (6.2-12.0); Monocyte# 1.03 X10^3/uL; Monocyte% 8.4 % (0-10); Neutrophil # 7.22 X10^3/uL (2.7-7.7); Neutrophil % 59.1 % (47-70); Platelet Count 254 K/mm3 (150-450); RBC Distribution Width CV 14.3 % (11.6-14.6); RBC Distribution Width SD 43.9 fl (35.1-43.9); Red Blood Count 4.39 M/mm3 (4.2-5.4); White Blood Count 12.2 K/mm3 (4.4-11.0)
[2018-12-08 20:48] LABS: POSITIVE COUNT NO; POSITIVE DIFFERENTIAL NO; POSITIVE MORPHOLOGY NO
[2018-12-08 20:50] LABS: Urine Bilirubin Dipstick 1 mg/dL (Negative)
[2018-12-08 20:51] LABS: Anion Gap 6 (5-15); BUN 14 mg/dL (7-18); BUN/Creat Ratio 11.3 RATIO (10-20); Calcium,Total 8.9 mg/dL (8.5-10.1); Chloride 107 mmol/L (98-107); Creatinine, Serum 1.24 mg/dL (0.55-1.02); EST Glomerular Filtration Rate 52 mL/min (>60); Est Glom Filt Rate - Afr Amer 63 mL/min (>60); Estimated Creatinine Clearance 49.13 ml/min; Glucose 249 mg/dL (74-106); Potassium 3.9 mmol/L (3.5-5.1); Sodium Level 139 mmol/L (136-145)
[2018-12-08 20:53] LABS: Mucous, Urine 1+ /hpf (<or=2+); Squamous Epithelial Cells - UA 0-5 SEEN /hpf (5-10)
[2018-12-08 20:56] LABS: Hyaline Cast 0-5 SEEN /lpf (0-5)
[2018-12-08 20:57] LABS: Red Blood Cells-Urine 10-25 SEEN /hpf (0-5); White Blood Cells 0-5 SEEN /hpf (0-5)
--- NOTE | 2018-12-08 22:57 | ED.RN ---
PT RANG OUT FOR MORE PAIN MEDS, PT STATES THE QUALITY OF HER PAIN CHANGED AND IT IS MORE DIFFUSE THROUGH THE ABDOMEN. DR. GUPTA MADE AWARE, NO FURTHER ORDERS AT THIS TIME. WILL CONTINUE TO MONITOR THE PT.
--- NOTE | 2018-12-08 23:19 | ED.VISSUMM ---
- ER Visit Summary Date of Service: 12/08/18 Chief Complaint: Bladder pain History of Present Illness: The patient is a 38 F history of diabetes, spina bifida, neurogenic bladder neurogenic bowel she has a suprapubic catheter. Was recently hospitalized for urosepsis. Patient states that replaced her suprapubic catheter. And she is complaining of pain. She is making urine. She denies gross hematuria. She has had no fever. No vomiting or diarrhea. Physical Examination: Young female no acute distress. Vital signs are stable and afebrile. She does not look septic or toxic. HEENT exam unremarkable. Moist use membranes. Neck nontender no lymphadenopathy. Lungs clear to auscultation bilaterally. Heart regular rhythm rate about 110 no murmur. Abdomen is soft. Mild suprapubic tenderness. She is a suprapubic catheter in place with yellow urine. No gross blood no clots. I do not feel any distention of her bladder. There is no signs of bowel obstruction is soft and she is positive bowel sounds. Extremities she has edema both lower extremities equal and symmetrical. Neurologically she is awake and alert. No focal deficits. Test Results: White count 12. Hemoglobin 12. No bands. Lites lites unremarkable glucose 249. Normal creatinine and gap. Bladder scan was only 89. The Morales appears to be draining. There is no signs of urinary obstruction or urinary retention. UA showed blood but otherwise no signs of infection. Emergency Department Course and Treatment: Patient was treated with normal saline. She was initially given morphine and Zofran for pain. I repeat exam at 2305 she is doing well. She is comfortable being discharged home. She will be given a [place] prior to discharge. She will be placed on Pyridium for bladder spasms. Treatment Plan: Follow-up with her urologist. Pyridium for bladder spasms. Disposition: Discharge Impression: Suprapubic abdominal pain Bladder spasms This note was generated with [employer] dictation software. It may contain incorrect words, spelling, and punctuation that were not noted in review of the chart prior to signing ED Disposition - Plan for ED Patient: Referrals: Will Shukla MD [Primary Care Provider] -
--- NOTE | 2018-12-08 23:23 | ED.DEP ---
ED Disposition - Plan for ED Patient: Disposition: Home or Assisted Living Prescriptions: Phenazopyridine HCl [Pyridium] 200 mg PO Q8H PRN PRN #14 tab PRN Reason: Bladder Spasms Prescription Printed Referrals: Will Shukla MD [Primary Care Provider] - As Needed Additional Instructions: Follow-up with your urologist in [facility]. Return for feeling worse. Your labs were unremarkable tonight and there was no signs of a urinary tract infection.
[2018-12-08] MEDS: HYDROcodone Bitartrate/Apap 5/325 Tablet PO (23:32)
== END 2018-12-08 23:35 | disposition home or self-care (01) ==
PROVIDERS: Emergency Provider Emergency Medicine; Family Provider Family Medicine; PCP Family Medicine
DX: R10.30 Lower abdominal pain, unspecified (principal); N32.89 Other specified disorders of bladder; Q05.9 Spina bifida, unspecified; E11.9 Type 2 diabetes mellitus without complications; N31.9 Neuromuscular dysfunction of bladder, unspecified; K59.2 Neurogenic bowel, not elsewhere classified; Z96.0 Presence of urogenital implants; R60.0 Localized edema; Z86.2 Personal history of diseases of the blood and blood-forming organs and certain disorders involving the immune mechanism; Z90.49 Acquired absence of other specified parts of digestive tract; Z79.84 Long term (current) use of oral hypoglycemic drugs; Z79.899 Other long term (current) drug therapy
CPT/HCPCS: 80048; 81001; 85025; 96361; 96374; 96375; 99284; J7030; A4216; J2405

== ENCOUNTER 2018-12-13 13:46 | Inpatient (IN) | payer MEDICARE, MEDICAID, SELFPAY ==
[2018-12-08 19:20] VITALS: BMI 41.8
[2018-12-13] VITALS (8 sets, daily range): BP systolic 106–126; BP diastolic 51–79; PULSE 66–95; RESP 14–18; TEMP 36.4–37.1; O2SAT 96–99; BMI 41.1; BMI 42.0
--- NOTE | 2018-12-13 15:40 | CT_ITS ---
STUDY: CT ABDOMEN AND PELVIS WITHOUT CONTRAST REASON FOR EXAM: Female, 38 years old. Acute left flank pain RADIATION DOSAGE (If Supplied By Facility): CTDIvol = ( 20.47 ) mGy, DLP = ( 1171.25 ) mGycm TECHNIQUE: Transaxial images were obtained from the dome of the diaphragm to the symphysis pubis without oral contrast, and without intravenous contrast. Sagittal and coronal images were reconstructed. Individualized dose optimization techniques were used for this CT. COMPARISON: 11/23/2018 FINDINGS: The visualized lung bases are unremarkable. The visualized portions of the heart are within normal limits. Normal liver. There is non-visualization of the gallbladder, which may be secondary to either contraction or a prior cholecystectomy. Normal spleen. Normal pancreas. Normal bilateral adrenal glands. No obstructive uropathy, there is likely chronic mild right hydronephrosis. The hydronephrosis of the right kidney and ureter has improved since the previous study but has not resolved. New since the previous study is evidence of air within the distal right ureter which is likely from Morales catheter placement. Normal visualized stomach. Normal small intestine. Retained stool noted throughout the colon which may be impacted. There is non-visualization of the appendix. Normal abdominal aorta. Normal inferior vena cava. Normal retroperitoneum. Bladder is collapsed around a suprapubic catheter. Normal-appearing uterus. No suspicious cystic mass or free fluid in the pelvis Normal abdominal wall. Normal osseous structures. CT/Abdomen/Pelvis without Cont IMPRESSION: Likely chronic mild right hydronephrosis. No perinephric stranding is noted. No obstructing stone is noted. The right hydronephrosis is improved when compared to the previous study. There is evidence of air within the mid and distal right ureter likely from Morales catheter placement. Bladder is collapsed around a suprapubic catheter Retained stool noted throughout the colon which may be impacted No suspicious solid organ abnormality Electronically Signed: Jarod Jaimes MD at 18:34 EDT , Service support ,
--- NOTE | 2018-12-13 15:49 | ED.DCSUM_ITS ---
History of Present Illness Chief Complaint: Complaint Informant: Patient Onset: Yesterday Context: Gradual Onset Timing: Continuous Quality: ache Location: left foot, both flanks, suprapubic Current Severity: Moderate Maximum Severity: Moderate Worsened by: palpation Relieved by: leaving areas alone Associated Symptoms: malaise, n/v, foul-smelling left foot wound, d/c from suprapubic cath site Narrative: This 38-year-old female with spina bifida does not have normal sensation below the waist, and has discomfort in the suprapubic area in the left foot where she has a chronic wound that she has had before with infections of these areas. She has an indwelling chronic suprapubic catheter, it was changed [address] [facility], where her urologist is. She was admitted here just after that for cellulitis of the left lower extremity, apparently emanating from this chronic wound. It was treated with antibiotics for total of 10 days, she finished them around 3 or 4 days ago. She noticed it started hurting and smelling foul today and getting worse throughout the day. Her significant other has been doing twice daily dressing changes of this area, and taking good care of it, he noticed no foul smell until today with his own personal dressing changes. He states there is some seeping from it that is worse than before today as well. Also she is noticing thick discharge from her suprapubic catheter site but the urine within the catheter is flowing well and normal- appearing and smelling. She has chronic discomfort in her right flank because of renal damage and now it is in her left flank as well, along with vomiting and malaise today. She states she was diagnosed with sepsis when she had these symptoms in the past. 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 Status: Chronic (2) Lower extremity edema Status: Chronic (3) Normochromic normocytic anemia Status: Chronic Comment: HGB normal in Apr 2018 (4) Type 2 diabetes mellitus with diabetic polyneuropathy Status: Chronic (5) Chronic back pain Status: Chronic (6) History of migraine Status: Chronic (7) Neurogenic bladder Status: Chronic (8) Neurogenic bowel Status: Chronic (9) Spina bifida aperta of lumbar spine Status: Chronic Comment: s/p surgery x 2 weakness and numbness in legs neurogenic bladder and frequent UTIs (10) Malnutrition Status: Suspected Past Medical History - Allergies and Home Meds Allergies/Adverse Reactions: Allergies mushroom Allergy (Verified 12/13/18 13:49) Anaphylaxis peanut Allergy (Verified 12/13/18 13:49) Anaphylaxis Gadolinium-MRI Contrast Medium Adverse Reaction (Verified 12/13/18 13:49) Vomiting Primary Care Physician: Will Shukla MD [Primary Care Provider] - Surgical History: cholecystectomy, - - D&C, lumbar back surgery x2, foot surgery x2, abdominal stoma, ventral hernia repair. Lives: Spouse/ Significant Other Smoking Status: Never smoker Drugs: None - Family History Maternal Family History: Family History (Last Reviewed 11/29/18 @ 08:01 by Gen Butt MD) Mother CVA (cerebral vascular accident) Thyroid disorder Diabetes Hypertension Family History: Reports: Cancer, Diabetes, Hypertension, Stroke Paternal Family History: Family History (Last Reviewed 11/29/18 @ 08:01 by Gen Butt MD) Mother CVA (cerebral vascular accident) Thyroid disorder Diabetes Hypertension Family History: Reports: No pertinent history Sibling Family History: Family History (Last Reviewed 11/29/18 @ 08:01 by Gen Butt MD) Mother CVA (cerebral vascular accident) Thyroid disorder Diabetes Hypertension Family History: Reports: No pertinent history Review of Systems General: Reports: Malaise. Denies: Chills, Fever, Sweats Eyes: Denies: Visual changes - bilaterally, Diplopia ENT: Denies: Rhinorrhea, Sore throat Cardiovascular: Denies: Chest pain, Palpitations Respiratory: Denies: Dyspnea, Cough, Dyspnea on exertion Gastrointestinal: Reports: Abdominal pain, Nausea, Vomiting. Denies: Diarrhea, Melena, Hematochezia Genitourinary: Reports: - - see HPI. Denies: Dysuria, Hematuria, Frequency Musculoskeletal: Reports: Back pain, Swelling - chronic BLE, no chgs, Extremity Pain - LLE Skin: Reports: Wounds. Denies: Rash Neurological: Reports: Numbness - chronic BLE unchanged. Denies: Headache, Weakness Physical Exam Vital Signs/Narrative: Vital Signs Temp Pulse Resp BP Pulse Ox 12/13/18 13:46 97.5 F L 94 16 106/51 L 96 Inital Vital Signs reviewed: Yes General: Well nourished, Well developed, No Acute Distress Head: Normocephalic, Atraumatic Eyes: Perrl, EOMI ENT: Moist mucous membranes, No rhinorrhea Neck: Supple, Nontender Cardiovascular: Regular rate, Regular rhythm, No murmurs Respiratory: No distress, CTA bilaterally, Chest nontender Abdomen: Soft, Nondistended, Normal bowel sounds, Tender - diffusely, Guarding - suprapubic site. Negative for: Rebound tenderness Back: Nontender - bilat, symmetric. no rashes., Normal Inspection, CVA tenderness - bilat, symmetric. no rash Extremities: Nontender, Edema - trace BLE Skin: Normal color, No rash, - - mild erythema caudal to suprapubic cath site w/ purulent d/c present. foul-smelling ulcerated wound w/o palpable infection or expressible d/c left heel/foot. no surrounding erythema. There is a marker-drawn line around the distal leg without any signs of cellulitis, indicating that the recent cellulitis has resolved. Neurological: Alert, Oriented x3, Cranial nerves II-XII grossly intact, Normal Strength, Parasthesia - BLE Psychological: Normal affect, Normal Mood Diagnostic/Tx/Re-eval Impressions Abdomen/Pelvis CT 12/13/18 15:40 IMPRESSION: Likely chronic mild right hydronephrosis. No perinephric stranding is noted. No obstructing stone is noted. The right hydronephrosis is improved when compared to the previous study. There is evidence of air within the mid and distal right ureter likely from Morales catheter placement. Bladder is collapsed around a suprapubic catheter Retained stool noted throughout the colon which may be impacted No suspicious solid organ abnormality Electronically Signed: Jarod Jaimes MD at 18:34 EDT , Service support , Foot X-Ray 12/13/18 17:40 IMPRESSION: Diffuse soft tissue swelling. 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 No interval change Electronically Signed: Jarod Jaimes MD at 18:02 EDT , Service support , 12/13/18 15:40 CT Abd [Abdomen/Pelvis without Cont] [CT] Stat 12/13/18 17:40 Foot min 3 Views [RAD] Stat Laboratory Results 12/13/18 12/13/18 12/13/18 16:50 16:50 16:50 WBC 10.2 RBC 4.32 Hgb 12.6 Hct 38.4 MCV 88.9 MCH 29.2 MCHC 32.8 RDW Std Deviation 46.5 H RDW Coeff of Claude 14.5 Plt Count 249 MPV 11.8 Immature Gran % (Auto) 0.500 Neut % (Auto) 61.4 Lymph % (Auto) 24.4 Coleman % (Auto) 9.8 Eos % (Auto) 3.3 Baso % (Auto) 0.6 Absolute Neuts (auto) 6.3 Absolute Lymphs (auto) 2.50 Absolute Nucleated RBC 0.00 Nucleated RBC % 0 ESR 62 H PT Cancelled INR Cancelled APTT Cancelled Sodium 138 Potassium 4.5 Chloride 103 Carbon Dioxide 28.0 Anion Gap 7 BUN 10 Creatinine 0.93 Estim Creat Clear Calc 65.51 Est GFR (MDRD) Af Amer 87 Est GFR (MDRD) Non-Af 72 BUN/Creatinine Ratio 10.8 Glucose 147 H Lactic Acid Calcium 9.5 Total Bilirubin 0.50 AST 66 H ALT 52 Alkaline Phosphatase 92 C-React Prot Ext Range 9.40 H Total Protein 8.6 H Albumin 3.5 Globulin 5.1 H Albumin/Globulin Ratio 0.7 L Urine Color Urine Clarity Urine pH Ur Specific [place] Urine Protein Urine Glucose (UA) Urine Ketones Urine Occult Blood Urine Nitrite Urine Bilirubin Urine Urobilinogen Ur Leukocyte Esterase Urine RBC Urine WBC Ur Squamous Epith Cells Urine Bacteria Urine Mucus 12/13/18 12/13/18 12/13/18 16:50 17:40 17:40 WBC RBC Hgb Hct MCV MCH MCHC RDW Std Deviation RDW Coeff of Claude Plt Count MPV Immature Gran % (Auto) Neut % (Auto) Lymph % (Auto) Coleman % (Auto) Eos % (Auto) Baso % (Auto) Absolute Neuts (auto) Absolute Lymphs (auto) Absolute Nucleated RBC Nucleated RBC % ESR PT 12.9 INR 1.0 APTT 31.5 Sodium Potassium Chloride Carbon Dioxide Anion Gap BUN Creatinine Estim Creat Clear Calc Est GFR (MDRD) Af Amer Est GFR (MDRD) Non-Af BUN/Creatinine Ratio Glucose Lactic Acid 1.7 Calcium Total Bilirubin AST ALT Alkaline Phosphatase C-React Prot Ext Range Total Protein Albumin Globulin Albumin/Globulin Ratio Urine Color Yellow Urine Clarity Sl. Cloudy Urine pH 7.0 Ur Specific [place] 1.010 Urine Protein 30 H Urine Glucose (UA) Normal Urine Ketones Negative Urine Occult Blood 50 H Urine Nitrite Negative Urine Bilirubin Negative Urine Urobilinogen Normal Ur Leukocyte Esterase 25 H Urine RBC 0-5 SEEN Urine WBC 0-5 SEEN Ur Squamous Epith Cells 0-5 SEEN Urine Bacteria 0 SEEN Urine Mucus 0 SEEN - Medical Decision Making Urine appears to show no acute infection, and CT was refracturing, showing no abscess near the suprapubic catheter site, no signs of pyelonephritis, and actual improvement in her chronic right hydronephrosis. CRP and ESR are elevated, giving me concerned about her right heel diabetic infection, the x-ray showed no radiographic signs of osteomyelitis. She does not meet criteria for sepsis and accordingly, her lactic acid is within normal limits. She was empirically given IV Zosyn and vancomycin. Cultures of the heel wound and the suprapubic catheter site discharge were sent, and the plan is for admission. ED Disposition - Plan for ED Patient: Disposition: Acute Care Hospital [facility] Diagnosis: Diabetic infection of left foot, Infection of bladder catheter Referrals: Will Shukla MD [Primary Care Provider] -
[2018-12-13 17:13] LABS: Absolute Neutrophil Count 6.3 X10^3/uL (2.0-7.7); Basophil# 0.06 X10^3/uL; Basophil% 0.6 % (0-1); Eosinophil# 0.34 X10^3/uL; Eosinophils% 3.3 % (0-5); Hematocrit 38.4 % (37-47); Hemoglobin 12.6 g/dL (12.0-15.0); Lymphocyte % 24.4 % (19-41); Mean Corp Hgb Conc 32.8 g/dL (32-36); Mean Corpuscular Hgb 29.2 pg (27.0-32.0); Mean Corpuscular Volume 88.9 fL (81-99); Mean Platelet Vol. 11.8 fl (6.2-12.0); Monocyte% 9.8 % (0-10); NRBC Flagged by Analyzer 0 % (0-5); Neutrophil # 6.29 X10^3/uL (2.7-7.7); Neutrophil % 61.4 % (47-70); Platelet Count 249 K/mm3 (150-450); RBC Distribution Width CV 14.5 % (11.6-14.6); RBC Distribution Width SD 46.5 fl (35.1-43.9); Red Blood Count 4.32 M/mm3 (4.2-5.4); White Blood Count 10.2 K/mm3 (4.4-11.0)
--- NOTE | 2018-12-13 17:17 | NURSING ---
COAGS HEMOLIZED. LAB WILL REPRINT LABELS
[2018-12-13 17:27] LABS: ALB/GLOB Ratio 0.7 RATIO (0.9-2.4); AST(SGOT) 66 U/L (15-37); Alanine Aminotransfer ALT/SGPT 52 U/L (13-56); Albumin, Serum 3.5 g/dL (3.2-5.0); Alkaline Phosphatase 92 U/L (45-117); Anion Gap 7 (5-15); BUN 10 mg/dL (7-18); BUN/Creat Ratio 10.8 RATIO (10-20); Calcium,Total 9.5 mg/dL (8.5-10.1); Chloride 103 mmol/L (98-107); Creatinine, Serum 0.93 mg/dL (0.55-1.02); EST Glomerular Filtration Rate 72 mL/min (>60); Erythrocyte Sedimentation Rate 62 mm/hr (0-20); Est Glom Filt Rate - Afr Amer 87 mL/min (>60); Estimated Creatinine Clearance 65.51 ml/min; Globulin 5.1 g/dL (2.2-4.2); Glucose 147 mg/dL (74-106); Potassium 4.5 mmol/L (3.5-5.1); Protein, Total 8.6 g/dL (6.4-8.2); Sodium Level 138 mmol/L (136-145)
--- NOTE | 2018-12-13 17:40 | RAD_ITS ---
STUDY: X-RAY - LEFT FOOT CLINICAL: Female, 38 years old. Pain, possible infection TECHNIQUE: 3 view(s) of the foot. COMPARISON: 11/30/2018 FINDINGS: There is an enthesophyte involving the posterior superior calcaneus at the site of insertion of the Achilles tendon. Normal visualized subtalar, talonavicular, calcaneocuboid, tarsal and tarsometatarsal articulations. 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 There is degenerative arthrosis of the metatarsophalangeal joint of the hallux with a hallux valgus deformity. Normal tibial and fibular sesamoid bones. Normal interphalangeal joint of the great toe. Normal phalanges of the great toe. Normal second through fifth metatarsophalangeal joints. Normal interphalangeal joints and phalanges of the lesser toes. Diffuse soft tissue swelling. No plain film evidence of subcutaneous emphysema RAD/Foot min 3 Views IMPRESSION: Diffuse soft tissue swelling. 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 No interval change Electronically Signed: Jarod Jaimes MD at 18:02 EDT , Service support ,
[2018-12-13] MEDS: Ondansetron 4 MG/2 ML Vial IV (17:43)
[2018-12-13] MEDS: 0.9% Normal Saline 1,000 ML 250 ML IV (17:43)
[2018-12-13] MEDS: Morphine 4 MG/ML Syringe IV (17:43)
[2018-12-13 17:44] LABS: Lactic Acid 1.7 mmol/L (0.4-2.0)
[2018-12-13 17:45] LABS: Bacteria 0 SEEN /hpf (None Seen); Mucous, Urine 0 SEEN /hpf (<or=2+)
[2018-12-13 17:57] LABS: Prothrombin Time (Protime)PT. 12.9 SECONDS (11.7-14.9)
[2018-12-13 17:58] LABS: Color, Urine Yellow (Yellow); Glucose, Dipstick Normal (Normal); Ketone-Dipstick Negative (Negative); Leukocyte Esterase-Dipstick 25 /ul (Negative); Nitrite-Dipstick Negative (Negative); Occult Blood-Urine 50 /ul (Negative); Partial Thromboplast Time 31.5 Seconds (24.1-36.2); Protein-Dipstick 30 mg/dl (Negative); Urine Bilirubin Dipstick Negative (Negative); Urine Clarity Sl. Cloudy (Clear); Urine Urobilinogen Normal (Normal)
[2018-12-13 18:01] LABS: Red Blood Cells-Urine 0-5 SEEN /hpf (0-5); Squamous Epithelial Cells - UA 0-5 SEEN /hpf (5-10); White Blood Cells 0-5 SEEN /hpf (0-5)
[2018-12-13] MEDS: Vancomycin IV 1,000 MG/200 ML BAG 200 MG IV (18:44)
--- NOTE | 2018-12-13 20:14 | PCM.HP.STD ---
Problem List (1) Wound infection Status: Acute History of Present Illness Date of Admission: 12/13/18 Chief Complaint: pain in left heel The patient is a 38 year old F with a significant history of type 2 diabetes; spina bifida of complicated neurogenic bladder status post suprapubic catheter who presented to the emergency department with increasing pain of the left heel wound that started day a before presentation. Her pain radiates to her left thigh. Also she has noticed increased drainage of the left heel and foul-smelling discharge from the left heel. Associated with her symptoms is malaise; chills; nausea; and vomiting. Also, patient complains of increased discharge and pain from her suprapubic catheter site. She denies any color change of her urine. Patient was admitted to our hospital on 11/28/2018 and discharged on 12/03/2018 for sepsis secondary to left leg cellulitis; left heel diabetic wound infection and infection of suprapubic catheter. 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) Type 2 diabetes mellitus with diabetic polyneuropathy (Chronic) Lower extremity edema (Chronic) Ulcer of left heel and midfoot with fat layer exposed (Chronic) Diabetes mellitus with neuropathy (Chronic) Edema of left lower extremity (Chronic) Constipation (Chronic) Neurogenic bowel (Chronic) Neurogenic bladder (Chronic) Chronic back pain (Chronic) History of migraine (Chronic) Depression (Chronic) 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 Will follow, no need yet for cysto retros etc. But this may change in future 13 Sept Re-admitted consult dictated Medical History: Medical History (Last Reviewed 12/13/18 @ 21:23 by Gen Butt MD) Neurogenic bowel (Chronic) K59.2 Neurogenic bladder (Chronic) N31.9 Chronic back pain (Chronic) M54.9, G89.29 History of migraine (Chronic) Z86.69 Depression (Chronic) F32.9 Spina bifida aperta of lumbar spine (Chronic) Q05.7 s/p surgery x 2 weakness and numbness in legs neurogenic bladder and frequent UTIs Non-compliance (Chronic) Z91.19 Morbid obesity with BMI of 40.0-44.9, adult (Chronic) E66.01, Z68.41 Diabetes mellitus, type II (Chronic) E11.9 not well controlled Hydronephrosis of right kidney (Chronic) N13.30 Consult dictated, For now Treat UTI and make sure pt does self cath. Will follow, no need yet for cysto retros etc. But this may change in future 13 Sept Re-admitted consult dictated UTI (urinary tract infection) (Resolved) N39.0 Allergies mushroom Allergy (Verified 12/13/18 13:49) Anaphylaxis peanut Allergy (Verified 12/13/18 13:49) Anaphylaxis Gadolinium-MRI Contrast Medium Adverse Reaction (Verified 12/13/18 13:49) Vomiting Home Medications: Ambulatory Orders Medication Instructions Recorded metFORMIN (XR) [Glucophage Xr] 1,000 mg PO BID 06/19/16 Atorvastatin Calcium [Lipitor] 10 mg PO QHS 11/07/17 Pseudoephedrine HCl [Sudogest] 30 mg PO Q6H PRN PRN 01/21/18 Pregabalin [Lyrica] 75 mg PO DAILY 02/25/18 Buspirone HCl 15 mg PO BID 04/11/18 Polyethylene Glycol 3350 [Miralax] 17 gm PO DAILY PRN PRN 04/13/18 Liraglutide [Victoza] 1.2 mg SQ DAILY 07/03/18 Duloxetine HCl 60 mg PO DAILY 08/28/18 Furosemide [Lasix] 20 mg PO DAILY@1700 08/28/18 Furosemide [Lasix] 40 mg PO DAILY 08/28/18 Loratadine [Claritin] 10 mg PO DAILY 08/28/18 Propranolol HCl 10 mg PO DAILY 08/28/18 Oxybutynin [Ditropan] 15 mg PO DAILY 10/23/18 Phenazopyridine HCl [Pyridium] 200 mg PO Q8H PRN PRN #14 tab 12/08/18 Surgical History: Surgical History (Last Reviewed 12/13/18 @ 21:23 by Gen Butt MD) History of cholecystectomy Z90.49 History of dilation and curettage Z98.890 History of spinal surgery Z98.890 Hx of foot surgery Z98.890 Hx of ventral hernia repair Z98.890, Z87.19 Status post gastric surgery Z98.890 Surgical History: cholecystectomy, - - D&C, lumbar back surgery x2, foot surgery x2, abdominal stoma, ventral hernia repair. Psychiatric History: Anxiety, Depression [employer] History: No pertinent [employer] history Lives: Spouse/ Significant Other Smoking Status: Never smoker Drugs: None - *Family History Maternal Family History: Family History (Last Reviewed 12/13/18 @ 21:16 by Gen Butt MD) Mother CVA (cerebral vascular accident) Thyroid disorder Diabetes Hypertension History Items: Cancer, Diabetes, Hypertension, Stroke Paternal Family History: Family History (Last Reviewed 12/13/18 @ 21:16 by Gen Butt MD) Mother CVA (cerebral vascular accident) Thyroid disorder Diabetes Hypertension History Items: No pertinent history Sibling Family History: Family History (Last Reviewed 12/13/18 @ 21:16 by Gen Butt MD) Mother CVA (cerebral vascular accident) Thyroid disorder Diabetes Hypertension History Items: No pertinent history Review of Systems Constitutional: Reports: Chills, Malaise. Denies: Fever, Weight Change HEENT: Denies: Head Aches, Sinus Congestion, Sinus Drainage Cardiovascular: Denies: Chest Pain, Palpitations Respiratory: Denies: Cough, Shortness of breath at rest, Sputum production Gastrointestinal: Reports: Abdominal Pain, Nausea, Vomiting Genitourinary: Denies: Dysuria Musculoskeletal: Denies: Joint Pain, Joint Tenderness Skin: Reports: Wounds. Denies: Rash Neurological: Denies: Numbness, Tingling, Focal weakness Psychiatric: Denies: Anxiety, Depression, Homicidal Ideations, Suicidal Ideations Hematologic/ Lymphatic: Denies: Easy Bruising, Easy Bleeding VTE Information - Inpt Only VTE Present on Admission: No VTE Mechan Device Prophylaxis: None VTE Pharm Prophylaxis ordered?: Yes Patient Problems: Active and Suspected Problems (Last Reviewed 12/13/18 @ 21:23 by Gen Butt MD) Diabetic infection of left foot (Acute) Wound infection (Acute) - Physical Exam General: Alert, Oriented x3, Cooperative HEENT: Atraumatic, PERRLA, EOMI, Normocephalic Neck: Supple, No JVD, Negative Carotid Bruits Lungs: Clear to auscultation, Normal air movement Cardiovascular: Regular rate, No murmurs Abdomen: Bowel Sounds Present, Soft, Non Tender Extremities: No edema, Capillary Refill Less than 3 Seconds Skin: Ulcer/ Wound - Left heel; also with some redness and pain at suprapubic catheter insertion site, and with foul drainage from site. Musculoskeletal: No Tenderness to Palpation of Joints or Extremities, Tenderness - Left heel; mild erythema Neurological: Cranial nerves II-XII grossly intact Psych/Mental Status: Normal Affect, Appropriate Vital Signs Temp Pulse Resp BP Pulse Ox 98 F 95 18 126/79 H 97 12/13/18 19:00 12/13/18 19:00 12/13/18 19:00 12/13/18 19:00 12/13/18 19:00 Oxygen Delivery Method Room Air Weight: 102.058 kg Body Mass Index (BMI) 41.1 Finger Stick Blood Glucose 187 Laboratory Tests Past 24 Hrs 12/13/18 12/13/18 12/13/18 16:50 16:50 16:50 WBC 10.2 RBC 4.32 Hgb 12.6 Hct 38.4 MCV 88.9 MCH 29.2 MCHC 32.8 RDW Std Deviation 46.5 H RDW Coeff of Claude 14.5 Plt Count 249 MPV 11.8 Immature Gran % (Auto) 0.500 Neut % (Auto) 61.4 Lymph % (Auto) 24.4 [place] % (Auto) 9.8 Eos % (Auto) 3.3 Baso % (Auto) 0.6 Absolute Neuts (auto) 6.3 Absolute Lymphs (auto) 2.50 Absolute Nucleated RBC 0.00 Nucleated RBC % 0 ESR 62 H PT Cancelled INR Cancelled APTT Cancelled Sodium 138 Potassium 4.5 Chloride 103 Carbon Dioxide 28.0 Anion Gap 7 BUN 10 Creatinine 0.93 Estim Creat Clear Calc 65.51 Est GFR (MDRD) Af Amer 87 Est GFR (MDRD) Non-Af 72 BUN/Creatinine Ratio 10.8 Glucose 147 H Lactic Acid Calcium 9.5 Total Bilirubin 0.50 AST 66 H ALT 52 Alkaline Phosphatase 92 C-React Prot Ext Range 9.40 H Total Protein 8.6 H Albumin 3.5 Globulin 5.1 H Albumin/Globulin Ratio 0.7 L Urine Color Urine Clarity Urine pH Ur Specific [place] Urine Protein Urine Glucose (UA) Urine Ketones Urine Occult Blood Urine Nitrite Urine Bilirubin Urine Urobilinogen Ur Leukocyte Esterase Urine RBC Urine WBC Ur Squamous Epith Cells Urine Bacteria Urine Mucus 12/13/18 12/13/18 12/13/18 16:50 17:40 17:40 WBC RBC Hgb Hct MCV MCH MCHC RDW Std Deviation RDW Coeff of Claude Plt Count MPV Immature Gran % (Auto) Neut % (Auto) Lymph % (Auto) [place] % (Auto) Eos % (Auto) Baso % (Auto) Absolute Neuts (auto) Absolute Lymphs (auto) Absolute Nucleated RBC Nucleated RBC % ESR PT 12.9 INR 1.0 APTT 31.5 Sodium Potassium Chloride Carbon Dioxide Anion Gap BUN Creatinine Estim Creat Clear Calc Est GFR (MDRD) Af Amer Est GFR (MDRD) Non-Af BUN/Creatinine Ratio Glucose Lactic Acid 1.7 Calcium Total Bilirubin AST ALT Alkaline Phosphatase C-React Prot Ext Range Total Protein Albumin Globulin Albumin/Globulin Ratio Urine Color Yellow Urine Clarity Sl. Cloudy Urine pH 7.0 Ur Specific [place] 1.010 Urine Protein 30 H Urine Glucose (UA) Normal Urine Ketones Negative Urine Occult Blood 50 H Urine Nitrite Negative Urine Bilirubin Negative Urine Urobilinogen Normal Ur Leukocyte Esterase 25 H Urine RBC 0-5 SEEN Urine WBC 0-5 SEEN Ur Squamous Epith Cells 0-5 SEEN Urine Bacteria 0 SEEN Urine Mucus 0 SEEN Assessment/Plan All Active Problems (Last Reviewed 12/13/18 @ 21:23 by Gen Butt MD) Sepsis due to cellulitis (Resolved) Decubitus ulcer of left heel (Acute) Delayed wound healing (Acute) Chest pain (Acute) Cellulitis of left lower extremity (Resolved) Diabetic infection of left foot (Acute) Wound infection (Acute) UTI (urinary tract infection) (Resolved) The patient is a 38 year old F with a significant history of type 2 diabetes; spina bifida of complicated neurogenic bladder status post suprapubic catheter who presented to the emergency department with increasing left heel pain and increasing discharge as well as pain at her suprapubic catheter site with diabetic wound infection and infection of her suprapubic catheter site. Diabetic wound infection Probably chronic but can not rule out osteomyelitis On her previous admission mentioned in HPI patient's wound culture grew Staphylococcus aureus and staphylococcus epidermidis; murillo sensitive except to Bactrim. On a previous admission she was started on broad-spectrum antibiotics that was eventually narrowed. Per discharge instruction she was discharged home on doxycycline although she reported that she was discharged home on Keflex. Patient was supposed to follow-up with an associate of Dr. Jose Faria certified low vision therapist; and Dr. Alpesh Alex, ID specialist. Per patient she could not get appointment with Dr. Alex outpatient and she had to change her appointment with a podiatry so she could not see podiatry. On this admission patient was started on vancomycin and Zosyn at the ED. Will continue patient on Unasyn since previous culture was murillo sensitive and will consult infectious disease and podiatry. Her ESR is elevated at 62. Review of old records: ESR on 09/03/2018 was 96. CRP ordered. Foot x-ray showed diffuse soft tissue swelling. Tylenol as needed; oxycodone as needed for pain. Continue home MiraLAX as needed. IV Zofran ordered. Blood cultures were ordered at the ED; follow Wound culture was ordered in the emergency department; follow Suprapubic catheter site infection Questionable acute on chronic Culture of her urine on previous admission grew Staphylococcus aureus that was murillo sensitive except to Bactrim. and infection of a suprapubic catheter sites And pelvic CT showed chronic mild right hydronephrosis and some retained stool noted throughout the colon however patient reports good bowel movements. Management of infection as in diabetic wound infection above. Urinary culture is pending Suprapubic wound culture was ordered emergency department; follow Depression/anxiety Buspirone and Cymbalta continued Diabetes mellitus On presentation her blood glucose was mildly elevated but within-hospital goal Hold metformin and Victoza. Accu-Chek q. before meals at bedtime and correction scale insulin ordered. Neuropathy Pregabalin continued Allergies Claritin continued. Psuedoephrine prn continued Migraines and dysrhythmia Propranolol continue. Bilateral lower leg edema: Lasix continued DVT Prophylaxis: Subcutaneous Lovenox Code Visit Inpatient E&M: 60140 Init Hosp L3
[2018-12-13 22:19] LABS: CRP 8.55 mg/L (0.0-3.0)
[2018-12-13] MEDS: busPIRone 15 MG TABLET PO (22:25)
[2018-12-13] MEDS: Furosemide 20 MG Tablet PO (22:25)
[2018-12-13] MEDS: Atorvastatin Calcium 10 MG Tablet PO (22:25)
[2018-12-13] MEDS: Insulin Lispro 100 UNIT/ML INSULN.PEN SC (22:27)
[2018-12-13] MEDS: oxyCODONE 5 MG Tablet PO (22:27)
[2018-12-13 22:41] LABS: Bedside Glucose 249 mg/dL (70-110)
--- NOTE | 2018-12-13 23:07 | NURSING ---
nutritional supplement not ordered due to conflict with peanut allergy
[2018-12-14 02:39] VITALS: BP 110/64; PULSE 66; RESP 16; TEMP 36.6; O2SAT 94
[2018-12-14 05:39] LABS: Absolute Lymphocyte Count 2.15 X10^3/uL (0.83-4.51); Absolute Neutrophil Count 4.2 X10^3/uL (2.0-7.7); Basophil# 0.04 X10^3/uL; Basophil% 0.5 % (0-1); Hematocrit 36.7 % (37-47); Hemoglobin 11.7 g/dL (12.0-15.0); Lymphocyte # 2.15 X10^3/ul (4.0); Lymphocyte % 28.3 % (19-41); Mean Corp Hgb Conc 31.9 g/dL (32-36); Mean Corpuscular Hgb 28.3 pg (27.0-32.0); Mean Corpuscular Volume 88.9 fL (81-99); Mean Platelet Vol. 10.8 fl (6.2-12.0); Monocyte# 0.88 X10^3/uL; Monocyte% 11.6 % (0-10); NRBC Flagged by Analyzer 0 % (0-5); Neutrophil # 4.17 X10^3/uL (2.7-7.7); Neutrophil % 54.9 % (47-70); Platelet Count 244 K/mm3 (150-450); RBC Distribution Width CV 14.6 % (11.6-14.6); RBC Distribution Width SD 46.7 fl (35.1-43.9); Red Blood Count 4.13 M/mm3 (4.2-5.4); White Blood Count 7.6 K/mm3 (4.4-11.0)
[2018-12-14 05:57] LABS: Anion Gap 9 (5-15); BUN 12 mg/dL (7-18); BUN/Creat Ratio 12.4 RATIO (10-20); Calcium,Total 8.8 mg/dL (8.5-10.1); Chloride 104 mmol/L (98-107); Creatinine, Serum 0.97 mg/dL (0.55-1.02); EST Glomerular Filtration Rate 69 mL/min (>60); Est Glom Filt Rate - Afr Amer 84 mL/min (>60); Glucose 198 mg/dL (74-106); Potassium 3.8 mmol/L (3.5-5.1); Sodium Level 140 mmol/L (136-145)
[2018-12-14] MEDS: Insulin Lispro 100 UNIT/ML INSULN.PEN SC ×4 (06:39→21:29)
[2018-12-14 06:45] LABS: Bedside Glucose 218 mg/dL (70-110)
[2018-12-14 08:30] VITALS: BP 110/72; PULSE 74; RESP 16; TEMP 36.7; O2SAT 99
[2018-12-14] MEDS: Loratadine 10 MG Tablet PO (08:32)
[2018-12-14] MEDS: busPIRone 15 MG TABLET PO ×2 (08:32→21:25)
[2018-12-14] MEDS: DULoxetine Hcl 60 MG Capsule PO (08:32)
[2018-12-14] MEDS: Furosemide 40 MG Tablet PO (08:33)
[2018-12-14] MEDS: Propranolol 10 MG Tablet PO (08:33)
[2018-12-14] MEDS: Tolterodine Tartrate 4 MG CAP.SA PO (08:33)
[2018-12-14] MEDS: oxyCODONE 5 MG Tablet PO ×2 (08:35→20:15)
[2018-12-14] MEDS: Pregabalin 75 MG Capsule PO (08:35)
--- NOTE | 2018-12-14 08:35 | NURSING ---
Wound photo: left heel
--- NOTE | 2018-12-14 08:36 | NURSING ---
wound photo: abdomen
--- NOTE | 2018-12-14 08:37 | PCM.PROGNOTE ---
<Megan Clark - Last Filed: 12/14/18 13:23> Patient Problems: Active and Suspected Problems (Last Reviewed 12/13/18 @ 21:23 by Gen Butt MD) Diabetic infection of left foot (Acute) Wound infection (Acute) Subjective: Patient seen and examined. Denies fever, chills. Denies nausea, vomiting. Denies significant pain. - Physical Exam General: Alert, Oriented x3, Cooperative HEENT: Atraumatic, PERRLA, EOMI, Normocephalic Neck: Supple, No JVD, Negative Carotid Bruits Lungs: Clear to auscultation, Normal air movement Cardiovascular: Regular rate, Regular Rhythm, Normal S1, Normal S2, No murmurs Abdomen: Bowel Sounds Present, Soft, Non Tender, Non-Distended, Obese, - - Suprapubic catheter in place Extremities: No clubbing, No cyanosis, No edema, Capillary Refill Less than 3 Seconds Skin: No rashes, No breakdown, - - Left heel wound, dressing clean dry and intact Musculoskeletal: No Tenderness to Palpation of Joints or Extremities Neurological: Cranial nerves II-XII grossly intact, Neuro grossly intact Psych/Mental Status: Normal Affect, Appropriate Vital Signs Temp Pulse Resp BP Pulse Ox 97.8 F 66 16 110/64 94 12/14/18 02:39 12/14/18 02:39 12/14/18 02:39 12/14/18 02:39 12/14/18 02:39 Oxygen Delivery Method Room Air Weight: 229 lb 8.019 oz Body Mass Index (BMI) 42.0 Finger Stick Blood Glucose 187 Intake and Output for Last 24 Hours 12/12/18 12/13/18 12/14/18 23:59 23:59 23:59 Intake Total 458 / 458 Output Total 1999 Balance -1542 / -1542 Laboratory Tests Past 24 Hrs 12/13/18 12/13/18 12/13/18 16:50 16:50 16:50 WBC 10.2 RBC 4.32 Hgb 12.6 Hct 38.4 MCV 88.9 MCH 29.2 MCHC 32.8 RDW Std Deviation 46.5 H RDW Coeff of Claude 14.5 Plt Count 249 MPV 11.8 Immature Gran % (Auto) 0.500 Neut % (Auto) 61.4 Lymph % (Auto) 24.4 [place] % (Auto) 9.8 Eos % (Auto) 3.3 Baso % (Auto) 0.6 Absolute Neuts (auto) 6.3 Absolute Lymphs (auto) 2.50 Absolute Nucleated RBC 0.00 Nucleated RBC % 0 ESR 62 H PT Cancelled INR Cancelled APTT Cancelled Sodium 138 Potassium 4.5 Chloride 103 Carbon Dioxide 28.0 Anion Gap 7 BUN 10 Creatinine 0.93 Estim Creat Clear Calc 65.51 Est GFR (MDRD) Af Amer 87 Est GFR (MDRD) Non-Af 72 BUN/Creatinine Ratio 10.8 Glucose 147 H Lactic Acid Calcium 9.5 Total Bilirubin 0.50 AST 66 H ALT 52 Alkaline Phosphatase 92 C-React Prot Ext Range 9.40 H Total Protein 8.6 H Albumin 3.5 Globulin 5.1 H Albumin/Globulin Ratio 0.7 L Urine Color Urine Clarity Urine pH Ur Specific [place] Urine Protein Urine Glucose (UA) Urine Ketones Urine Occult Blood Urine Nitrite Urine Bilirubin Urine Urobilinogen Ur Leukocyte Esterase Urine RBC Urine WBC Ur Squamous Epith Cells Urine Bacteria Urine Mucus S.aureus Protein A PCR MRSA (PCR) 12/13/18 12/13/18 12/13/18 16:50 17:40 17:40 WBC RBC Hgb Hct MCV MCH MCHC RDW Std Deviation RDW Coeff of Claude Plt Count MPV Immature Gran % (Auto) Neut % (Auto) Lymph % (Auto) [place] % (Auto) Eos % (Auto) Baso % (Auto) Absolute Neuts (auto) Absolute Lymphs (auto) Absolute Nucleated RBC Nucleated RBC % ESR PT 12.9 INR 1.0 APTT 31.5 Sodium Potassium Chloride Carbon Dioxide Anion Gap BUN Creatinine Estim Creat Clear Calc Est GFR (MDRD) Af Amer Est GFR (MDRD) Non-Af BUN/Creatinine Ratio Glucose Lactic Acid 1.7 Calcium Total Bilirubin AST ALT Alkaline Phosphatase C-React Prot Ext Range Total Protein Albumin Globulin Albumin/Globulin Ratio Urine Color Yellow Urine Clarity Sl. Cloudy Urine pH 7.0 Ur Specific [place] 1.010 Urine Protein 30 H Urine Glucose (UA) Normal Urine Ketones Negative Urine Occult Blood 50 H Urine Nitrite Negative Urine Bilirubin Negative Urine Urobilinogen Normal Ur Leukocyte Esterase 25 H Urine RBC 0-5 SEEN Urine WBC 0-5 SEEN Ur Squamous Epith Cells 0-5 SEEN Urine Bacteria 0 SEEN Urine Mucus 0 SEEN S.aureus Protein A PCR MRSA (PCR) 12/13/18 12/14/18 12/14/18 21:40 05:17 05:17 WBC 7.6 RBC 4.13 L Hgb 11.7 L Hct 36.7 L MCV 88.9 MCH 28.3 MCHC 31.9 L RDW Std Deviation 46.7 H RDW Coeff of Claude 14.6 Plt Count 244 MPV 10.8 Immature Gran % (Auto) 0.700 Neut % (Auto) 54.9 Lymph % (Auto) 28.3 [place] % (Auto) 11.6 H Eos % (Auto) 4.0 Baso % (Auto) 0.5 Absolute Neuts (auto) 4.2 Absolute Lymphs (auto) 2.15 Absolute Nucleated RBC 0.00 Nucleated RBC % 0 ESR PT INR APTT Sodium 140 Potassium 3.8 Chloride 104 Carbon Dioxide 27.0 Anion Gap 9 BUN 12 Creatinine 0.97 Estim Creat Clear Calc 62.80 Est GFR (MDRD) Af Amer 84 Est GFR (MDRD) Non-Af 69 BUN/Creatinine Ratio 12.4 Glucose 198 H Lactic Acid Calcium 8.8 Total Bilirubin AST ALT Alkaline Phosphatase C-React Prot Ext Range 8.55 H Total Protein Albumin Globulin Albumin/Globulin Ratio Urine Color Urine Clarity Urine pH Ur Specific [place] Urine Protein Urine Glucose (UA) Urine Ketones Urine Occult Blood Urine Nitrite Urine Bilirubin Urine Urobilinogen Ur Leukocyte Esterase Urine RBC Urine WBC Ur Squamous Epith Cells Urine Bacteria Urine Mucus S.aureus Protein A PCR MRSA (PCR) 12/14/18 07:30 WBC RBC Hgb Hct MCV MCH MCHC RDW Std Deviation RDW Coeff of [place] Plt Count MPV Immature Gran % (Auto) Neut % (Auto) Lymph % (Auto) [place] % (Auto) Eos % (Auto) Baso % (Auto) Absolute Neuts (auto) Absolute Lymphs (auto) Absolute Nucleated RBC Nucleated RBC % ESR PT INR APTT Sodium Potassium Chloride Carbon Dioxide Anion Gap BUN Creatinine Estim Creat Clear Calc Est GFR (MDRD) Af Amer Est GFR (MDRD) Non-Af BUN/Creatinine Ratio Glucose Lactic Acid Calcium Total Bilirubin AST ALT Alkaline Phosphatase C-React Prot Ext Range Total Protein Albumin Globulin Albumin/Globulin Ratio Urine Color Urine Clarity Urine pH Ur Specific [place] Urine Protein Urine Glucose (UA) Urine Ketones Urine Occult Blood Urine Nitrite Urine Bilirubin Urine Urobilinogen Ur Leukocyte Esterase Urine RBC Urine WBC Ur Squamous Epith Cells Urine Bacteria Urine Mucus S.aureus Protein A PCR Pending MRSA (PCR) Pending POC Glucose 12/14/18 12/13/18 06:36 22:20 POC Glucose 218 H 249 H Medical Necessity - Tobacco Use Smoking Status: Never smoker Tobacco Use: Secondhand Assessment/Plan All Active Problems (Last Reviewed 12/13/18 @ 21:23 by Gen Butt MD) Sepsis due to cellulitis (Resolved) Decubitus ulcer of left heel (Acute) Delayed wound healing (Acute) Chest pain (Acute) Cellulitis of left lower extremity (Resolved) Diabetic infection of left foot (Acute) Wound infection (Acute) UTI (urinary tract infection) (Resolved) 1. Acute suprapubic catheter site infection, acute complicated gram-negative sue UTI-patient has history of neurogenic bladder with suprapubic catheter insertion approximately 1 month. She reports her catheter was last changed November 26, 2017. Patient reports she was previously self cathing at home however was having frequent infections and developed kidney problems which prompted insertion of suprapubic catheter. CT of abdomen and pelvis on admission showed chronic mild right hydronephrosis and some retained stool. Wound culture from suprapubic catheter site showing beta-hemolytic organism. Urine culture with gram-negative sue, greater than 100,000 colony count. Continue IV Unasyn. 2. Left heel diabetic wound with associated cellulitis-ID following. Continue IV Unasyn. Wound RN consult. Dressing changes per orders. Patient had been following with wound center previously and will need further follow-up at discharge. Anticipate SNF at discharge given patient is unable to perform proper wound care at home. Wound cultures pending. PT/OT. Dr. Faria, podiatry consulted. 3. History of spina bifida with neurogenic bladder, neurogenic bowel, chronic back pain with lumbar spine surgery x2-continue home Lyrica regimen. PRN pain regimen. 4. Anxiety/depression-continue home buspirone, duloxetine regimen. 5. History of migraines-continue home propanolol regimen. 6. Type 2 diabetes mellitus-hold home oral regimen. Accu-Cheks before meals and at bedtime with sliding scale insulin. 7. Hyperlipidemia-continue statin. 8. Morbid obesity-encourage diet and lifestyle modifications. 9. Chronic constipation due to neurogenic bowel from history of spina bifida-continue bowel regimen. DVT prophylaxis-SCDs Discharge planning: Anticipate discharge to SNF, as [facility] 12/16/2017 This patient was seen by NACHO Maravilla under the supervision of Dr. Hendricks. <Too Hendricks F - Last Filed: 12/14/18 13:37> - Physical Exam Vital Signs Temp Pulse Resp BP Pulse Ox 98.1 F 74 16 110/72 99 12/14/18 08:30 12/14/18 08:30 12/14/18 08:30 12/14/18 08:30 12/14/18 08:30 Oxygen Delivery Method Room Air Weight: 229 lb 8.019 oz Body Mass Index (BMI) 42.0 Finger Stick Blood Glucose 187 Intake and Output for Last 24 Hours 12/12/18 12/13/18 12/14/18 23:59 23:59 23:59 Intake Total 939 / 939 Output Total 3000 / 3000 Balance -2060 / -2060 Microbiology Past 72 Hours 12/13/18 17:40 Urine Culture - Preliminary Urine Catheter - Catheter Gram negative sue 12/13/18 17:30 Gram Stain - Final Wound - Aerobic Swab Wound Culture - Preliminary Beta hemolytic organism 12/14/18 07:30 Gram Stain - Final Wound - Heel, Left Laboratory Tests Past 24 Hrs 12/13/18 12/13/18 12/13/18 16:50 16:50 16:50 WBC 10.2 RBC 4.32 Hgb 12.6 Hct 38.4 MCV 88.9 MCH 29.2 MCHC 32.8 RDW Std Deviation 46.5 H RDW Coeff of Claude 14.5 Plt Count 249 MPV 11.8 Immature Gran % (Auto) 0.500 Neut % (Auto) 61.4 Lymph % (Auto) 24.4 [place] % (Auto) 9.8 Eos % (Auto) 3.3 Baso % (Auto) 0.6 Absolute Neuts (auto) 6.3 Absolute Lymphs (auto) 2.50 Absolute Nucleated RBC 0.00 Nucleated RBC % 0 ESR 62 H PT Cancelled INR Cancelled APTT Cancelled Sodium 138 Potassium 4.5 Chloride 103 Carbon Dioxide 28.0 Anion Gap 7 BUN 10 Creatinine 0.93 Estim Creat Clear Calc 65.51 Est GFR (MDRD) Af Amer 87 Est GFR (MDRD) Non-Af 72 BUN/Creatinine Ratio 10.8 Glucose 147 H Lactic Acid Calcium 9.5 Total Bilirubin 0.50 AST 66 H ALT 52 Alkaline Phosphatase 92 C-React Prot Ext Range 9.40 H Total Protein 8.6 H Albumin 3.5 Globulin 5.1 H Albumin/Globulin Ratio 0.7 L Urine Color Urine Clarity Urine pH Ur Specific [place] Urine Protein Urine Glucose (UA) Urine Ketones Urine Occult Blood Urine Nitrite Urine Bilirubin Urine Urobilinogen Ur Leukocyte Esterase Urine RBC Urine WBC Ur Squamous Epith Cells Urine Bacteria Urine Mucus S.aureus Protein A PCR MRSA (PCR) 12/13/18 12/13/18 12/13/18 16:50 17:40 17:40 WBC RBC Hgb Hct MCV MCH MCHC RDW Std Deviation RDW Coeff of Claude Plt Count MPV Immature Gran % (Auto) Neut % (Auto) Lymph % (Auto) [place] % (Auto) Eos % (Auto) Baso % (Auto) Absolute Neuts (auto) Absolute Lymphs (auto) Absolute Nucleated RBC Nucleated RBC % ESR PT 12.9 INR 1.0 APTT 31.5 Sodium Potassium Chloride Carbon Dioxide Anion Gap BUN Creatinine Estim Creat Clear Calc Est GFR (MDRD) Af Amer Est GFR (MDRD) Non-Af BUN/Creatinine Ratio Glucose Lactic Acid 1.7 Calcium Total Bilirubin AST ALT Alkaline Phosphatase C-React Prot Ext Range Total Protein Albumin Globulin Albumin/Globulin Ratio Urine Color Yellow Urine Clarity Sl. Cloudy Urine pH 7.0 Ur Specific [place] 1.010 Urine Protein 30 H Urine Glucose (UA) Normal Urine Ketones Negative Urine Occult Blood 50 H Urine Nitrite Negative Urine Bilirubin Negative Urine Urobilinogen Normal Ur Leukocyte Esterase 25 H Urine RBC 0-5 SEEN Urine WBC 0-5 SEEN Ur Squamous Epith Cells 0-5 SEEN Urine Bacteria 0 SEEN Urine Mucus 0 SEEN S.aureus Protein A PCR MRSA (PCR) 12/13/18 12/14/18 12/14/18 21:40 05:17 05:17 WBC 7.6 RBC 4.13 L Hgb 11.7 L Hct 36.7 L MCV 88.9 MCH 28.3 MCHC 31.9 L RDW Std Deviation 46.7 H RDW Coeff of Claude 14.6 Plt Count 244 MPV 10.8 Immature Gran % (Auto) 0.700 Neut % (Auto) 54.9 Lymph % (Auto) 28.3 [place] % (Auto) 11.6 H Eos % (Auto) 4.0 Baso % (Auto) 0.5 Absolute Neuts (auto) 4.2 Absolute Lymphs (auto) 2.15 Absolute Nucleated RBC 0.00 Nucleated RBC % 0 ESR PT INR APTT Sodium 140 Potassium 3.8 Chloride 104 Carbon Dioxide 27.0 Anion Gap 9 BUN 12 Creatinine 0.97 Estim Creat Clear Calc 62.80 Est GFR (MDRD) Af Amer 84 Est GFR (MDRD) Non-Af 69 BUN/Creatinine Ratio 12.4 Glucose 198 H Lactic Acid Calcium 8.8 Total Bilirubin AST ALT Alkaline Phosphatase C-React Prot Ext Range 8.55 H Total Protein Albumin Globulin Albumin/Globulin Ratio Urine Color Urine Clarity Urine pH Ur Specific [place] Urine Protein Urine Glucose (UA) Urine Ketones Urine Occult Blood Urine Nitrite Urine Bilirubin Urine Urobilinogen Ur Leukocyte Esterase Urine RBC Urine WBC Ur Squamous Epith Cells Urine Bacteria Urine Mucus S.aureus Protein A PCR MRSA (PCR) 12/14/18 07:30 WBC RBC Hgb Hct MCV MCH MCHC RDW Std Deviation RDW Coeff of Claude Plt Count MPV Immature Gran % (Auto) Neut % (Auto) Lymph % (Auto) [place] % (Auto) Eos % (Auto) Baso % (Auto) Absolute Neuts (auto) Absolute Lymphs (auto) Absolute Nucleated RBC Nucleated RBC % ESR PT INR APTT Sodium Potassium Chloride Carbon Dioxide Anion Gap BUN Creatinine Estim Creat Clear Calc Est GFR (MDRD) Af Amer Est GFR (MDRD) Non-Af BUN/Creatinine Ratio Glucose Lactic Acid Calcium Total Bilirubin AST ALT Alkaline Phosphatase C-React Prot Ext Range Total Protein Albumin Globulin Albumin/Globulin Ratio Urine Color Urine Clarity Urine pH Ur Specific [place] Urine Protein Urine Glucose (UA) Urine Ketones Urine Occult Blood Urine Nitrite Urine Bilirubin Urine Urobilinogen Ur Leukocyte Esterase Urine RBC Urine WBC Ur Squamous Epith Cells Urine Bacteria Urine Mucus S.aureus Protein A PCR POSITIVE H MRSA (PCR) Negative POC Glucose 12/14/18 12/14/18 12/13/18 11:58 06:36 22:20 POC Glucose 269 H 218 H 249 H Code Visit Addendum: Dr. Hendricks I personally examined the patient and reviewed the chart. I agree with the above. 38-year-old morbidly obese female with a history of spina bifida presents with unhealed left heel diabetic wound, UTI in the setting of neurogenic bladder and suprapubic catheter. Unsure as to why this is not healing she had been in a senior care for over a month previously and continues to have an infection. We will consult podiatry as well as infectious disease for their assistance. We will see if she is willing to go back to senior care otherwise she will go home with home health. Inpatient E&M: 40564 Subs Hosp L2
--- NOTE | 2018-12-14 09:48 | PCM.HP.ID ---
Reason for Consult: Left heel soft tissue infection diabetic host History of Present Illness: The patient is a 38 year old F [] This is a 38-year-old white female with spina bifida, diabetes mellitus complicated by peripheral neuropathy, recent placement of a suprapubic Morales roughly a month ago who was admitted because of pain to left thigh and concern for infection. Denies any fevers or chills. Patient was recently hospitalized in early November and was sent home with local wound care and oral doxycycline. Patient denies any gastrointestinal distress or constipation. No cardiopulmonary symptoms she is currently on Unasyn. I did look at the pictures of her left heel by the wound care nurse from this morning. 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 (Chronic) Lower extremity edema (Chronic) Ulcer of left heel and midfoot with fat layer exposed (Chronic) Diabetes mellitus with neuropathy (Chronic) Edema of left lower extremity (Chronic) Constipation (Chronic) Neurogenic bowel (Chronic) Neurogenic bladder (Chronic) Chronic back pain (Chronic) History of migraine (Chronic) Depression (Chronic) 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 Will follow, no need yet for cysto retros etc. But this may change in future Jan Re-admitted consult dictated Allergies/Adverse Reactions: Allergies mushroom Allergy (Verified 12/13/18 13:49) Anaphylaxis peanut Allergy (Verified 12/13/18 13:49) Anaphylaxis Gadolinium-MRI Contrast Medium Adverse Reaction (Verified 12/13/18 13:49) Vomiting Home Medications: Ambulatory Orders Medication Instructions Recorded metFORMIN (XR) [Glucophage Xr] 1,000 mg PO BID 06/19/16 Atorvastatin Calcium [Lipitor] 10 mg PO QHS 11/07/17 Pseudoephedrine HCl [Sudogest] 30 mg PO Q6H PRN PRN 01/21/18 Pregabalin [Lyrica] 75 mg PO DAILY 02/25/18 Buspirone HCl 15 mg PO BID 04/11/18 Polyethylene Glycol 3350 [Miralax] 17 gm PO DAILY PRN PRN 04/13/18 Liraglutide [Victoza] 1.2 mg SQ DAILY 07/03/18 Duloxetine HCl 60 mg PO DAILY 08/28/18 Furosemide [Lasix] 20 mg PO DAILY@1700 08/28/18 Furosemide [Lasix] 40 mg PO DAILY 08/28/18 Loratadine [Claritin] 10 mg PO DAILY 08/28/18 Propranolol HCl 10 mg PO DAILY 08/28/18 Oxybutynin [Ditropan] 15 mg PO DAILY 10/23/18 Phenazopyridine HCl [Pyridium] 200 mg PO Q8H PRN PRN #14 tab 12/08/18 - Social History SMOKING STATUS:: Never smoker Vital Signs Temp Pulse Resp BP Pulse Ox 97.8 F 66 16 110/64 94 12/14/18 02:39 12/14/18 02:39 12/14/18 02:39 12/14/18 02:39 12/14/18 02:39 Oxygen Delivery Method Room Air Weight: 104.1 kg Body Mass Index (BMI) 42.0 Finger Stick Blood Glucose 187 Microbiology Past 72 Hours 12/13/18 17:30 Gram Stain - Final Wound - Aerobic Swab Laboratory Tests Past 24 Hrs 12/13/18 12/13/18 12/13/18 16:50 16:50 16:50 WBC 10.2 RBC 4.32 Hgb 12.6 Hct 38.4 MCV 88.9 MCH 29.2 MCHC 32.8 RDW Std Deviation 46.5 H RDW Coeff of Claude 14.5 Plt Count 249 MPV 11.8 Immature Gran % (Auto) 0.500 Neut % (Auto) 61.4 Lymph % (Auto) 24.4 [place] % (Auto) 9.8 Eos % (Auto) 3.3 Baso % (Auto) 0.6 Absolute Neuts (auto) 6.3 Absolute Lymphs (auto) 2.50 Absolute Nucleated RBC 0.00 Nucleated RBC % 0 ESR 62 H PT Cancelled INR Cancelled APTT Cancelled Sodium 138 Potassium 4.5 Chloride 103 Carbon Dioxide 28.0 Anion Gap 7 BUN 10 Creatinine 0.93 Estim Creat Clear Calc 65.51 Est GFR (MDRD) Af Amer 87 Est GFR (MDRD) Non-Af 72 BUN/Creatinine Ratio 10.8 Glucose 147 H Lactic Acid Calcium 9.5 Total Bilirubin 0.50 AST 66 H ALT 52 Alkaline Phosphatase 92 C-React Prot Ext Range 9.40 H Total Protein 8.6 H Albumin 3.5 Globulin 5.1 H Albumin/Globulin Ratio 0.7 L Urine Color Urine Clarity Urine pH Ur Specific [place] Urine Protein Urine Glucose (UA) Urine Ketones Urine Occult Blood Urine Nitrite Urine Bilirubin Urine Urobilinogen Ur Leukocyte Esterase Urine RBC Urine WBC Ur Squamous Epith Cells Urine Bacteria Urine Mucus S.aureus Protein A PCR MRSA (PCR) 12/13/18 12/13/18 12/13/18 16:50 17:40 17:40 WBC RBC Hgb Hct MCV MCH MCHC RDW Std Deviation RDW Coeff of [place] Plt Count MPV Immature Gran % (Auto) Neut % (Auto) Lymph % (Auto) [place] % (Auto) Eos % (Auto) Baso % (Auto) Absolute Neuts (auto) Absolute Lymphs (auto) Absolute Nucleated RBC Nucleated RBC % ESR PT 12.9 INR 1.0 APTT 31.5 Sodium Potassium Chloride Carbon Dioxide Anion Gap BUN Creatinine Estim Creat Clear Calc Est GFR (MDRD) Af Amer Est GFR (MDRD) Non-Af BUN/Creatinine Ratio Glucose Lactic Acid 1.7 Calcium Total Bilirubin AST ALT Alkaline Phosphatase C-React Prot Ext Range Total Protein Albumin Globulin Albumin/Globulin Ratio Urine Color Yellow Urine Clarity Sl. Cloudy Urine pH 7.0 Ur Specific [place] 1.010 Urine Protein 30 H Urine Glucose (UA) Normal Urine Ketones Negative Urine Occult Blood 50 H Urine Nitrite Negative Urine Bilirubin Negative Urine Urobilinogen Normal Ur Leukocyte Esterase 25 H Urine RBC 0-5 SEEN Urine WBC 0-5 SEEN Ur Squamous Epith Cells 0-5 SEEN Urine Bacteria 0 SEEN Urine Mucus 0 SEEN S.aureus Protein A PCR MRSA (PCR) 12/13/18 12/14/18 12/14/18 21:40 05:17 05:17 WBC 7.6 RBC 4.13 L Hgb 11.7 L Hct 36.7 L MCV 88.9 MCH 28.3 MCHC 31.9 L RDW Std Deviation 46.7 H RDW Coeff of [place] 14.6 Plt Count 244 MPV 10.8 Immature Gran % (Auto) 0.700 Neut % (Auto) 54.9 Lymph % (Auto) 28.3 [place] % (Auto) 11.6 H Eos % (Auto) 4.0 Baso % (Auto) 0.5 Absolute Neuts (auto) 4.2 Absolute Lymphs (auto) 2.15 Absolute Nucleated RBC 0.00 Nucleated RBC % 0 ESR PT INR APTT Sodium 140 Potassium 3.8 Chloride 104 Carbon Dioxide 27.0 Anion Gap 9 BUN 12 Creatinine 0.97 Estim Creat Clear Calc 62.80 Est GFR (MDRD) Af Amer 84 Est GFR (MDRD) Non-Af 69 BUN/Creatinine Ratio 12.4 Glucose 198 H Lactic Acid Calcium 8.8 Total Bilirubin AST ALT Alkaline Phosphatase C-React Prot Ext Range 8.55 H Total Protein Albumin Globulin Albumin/Globulin Ratio Urine Color Urine Clarity Urine pH Ur Specific [place] Urine Protein Urine Glucose (UA) Urine Ketones Urine Occult Blood Urine Nitrite Urine Bilirubin Urine Urobilinogen Ur Leukocyte Esterase Urine RBC Urine WBC Ur Squamous Epith Cells Urine Bacteria Urine Mucus S.aureus Protein A PCR MRSA (PCR) 12/14/18 07:30 WBC RBC Hgb Hct MCV MCH MCHC RDW Std Deviation RDW Coeff of [place] Plt Count MPV Immature Gran % (Auto) Neut % (Auto) Lymph % (Auto) [place] % (Auto) Eos % (Auto) Baso % (Auto) Absolute Neuts (auto) Absolute Lymphs (auto) Absolute Nucleated RBC Nucleated RBC % ESR PT INR APTT Sodium Potassium Chloride Carbon Dioxide Anion Gap BUN Creatinine Estim Creat Clear Calc Est GFR (MDRD) Af Amer Est GFR (MDRD) Non-Af BUN/Creatinine Ratio Glucose Lactic Acid Calcium Total Bilirubin AST ALT Alkaline Phosphatase C-React Prot Ext Range Total Protein Albumin Globulin Albumin/Globulin Ratio Urine Color Urine Clarity Urine pH Ur Specific [place] Urine Protein Urine Glucose (UA) Urine Ketones Urine Occult Blood Urine Nitrite Urine Bilirubin Urine Urobilinogen Ur Leukocyte Esterase Urine RBC Urine WBC Ur Squamous Epith Cells Urine Bacteria Urine Mucus S.aureus Protein A PCR Pending MRSA (PCR) Pending - Other Studies Radiology: [] Other Studies: [] Route of nutrition/ use of supplements: [] Nutritional Intake: [] IV Site: [] Morales Catheter: [] Alert does not appear toxic head and neck exam is unremarkable lungs are clear heart exam S1-S2 abdomen soft nontender suprapubic site looks clean and intact. - Assessment/Plan Antibiotics: [] Assessment/Plan: [] Active and Suspected Problems (Last Reviewed 12/13/18 @ 21:23 by Gen Butt MD) Diabetic infection of left foot (Acute) Wound infection (Acute) Diabetic host with left heel wound with mild surrounding cellulitis. At this point we will continue Unasyn 3 g IV every 8 hours and continue supportive care. I doubt the need long-term IV antibiotics.
[2018-12-14 09:51] LABS: M R Staph aureus DNA By PCR Negative (Negative); Probe Check PASS; Specimen Processing Control PASS; Staph aureus DNA By PCR POSITIVE (Negative)
[2018-12-14] MEDS: Enoxaparin 40 MG/0.4 ML Syringe SC (10:03)
--- NOTE | 2018-12-14 11:44 | CASEMGMT ---
VERNON BENITEZ NOTE: To room to talk with pt. Introduced self and role of VERNON BENITEZ. Pt states she wishes to go to a SNF @ discharge. Asked pt what her top 2 preferences of facilities are and she states [facility] is her 1st choice, d/t she has been there before. She states she does not know of any other facilities if [facility] does not have any beds. Pt made aware that if [facility] does not have any beds available/not able to take her that can provide a list to her of other options in network with her insurance. Dylan BSN VERNON BENITEZ
[2018-12-14] MEDS: Acetaminophen 325 MG Tablet 650 MG PO (12:05)
[2018-12-14 12:10] LABS: Bedside Glucose 269 mg/dL (70-110)
--- NOTE | 2018-12-14 12:20 | CASEMGMT ---
Social Work Referral received from JUSTIN Booth as pt is requesting to go to [facility]. VM left with Kelly at [facility] notifiying that pt would like placement and that referral would be faxed. Requesting Kelly notify if they can accept pt. Referral faxed. Will await return call and determination. JUSTIN Pierce
--- NOTE | 2018-12-14 12:52 | CASEMGMT ---
Addendum entered by Kati Martinez 12/14/18 12:59: SW in to update pt on acceptance to [facility] on Monday. Pt states I just talked to my infectious disease Dr. Washington and he states that he has different antibiotics that I can try at home and I would prefer to go home instead. SW asked pt about HHC and pt denied. Pt states My is able to take care of my wounds and I feel comfortable with going home. SW informed pt that [facility] is able to accept Monday in the event that she changes her mind. Pt states understanding, again states she wishes to discharge home and denied additional needs or concerns at this time. RN CM updated. Original Note: Social Work Note SW received call from Kelly at [facility] stating she is able to accept pt Monday and asks that pt's Spina Bifida gets put on pt's convalescent 7000 in [facility]. SW completed convalescent 7000 in [employer] and placed on pt's chart with green sheet and transportation form. Plan: [facility] Monday Kati Martinez WEBSPHERE DEVELOPER, COUNTER CUTTER
[2018-12-14 14:20] VITALS: BP 96/55; PULSE 63; RESP 16; TEMP 37.2; O2SAT 95
--- NOTE | 2018-12-14 15:57 | CON.PCM_ITS ---
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 This patient is known to me needs to follow with me at the wound healing center. She has missed appointments for at least a month or more. Currently she is resting in bed and is comfortable. She denies any feelings of nausea, vomiting, fever, chills. 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) Type 2 diabetes mellitus with diabetic polyneuropathy (Chronic) Lower extremity edema (Chronic) Ulcer of left heel and midfoot with fat layer exposed (Chronic) Diabetes mellitus with neuropathy (Chronic) Edema of left lower extremity (Chronic) Constipation (Chronic) Neurogenic bowel (Chronic) Neurogenic bladder (Chronic) Chronic back pain (Chronic) History of migraine (Chronic) Depression (Chronic) 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 Will follow, no need yet for cysto retros etc. But this may change in future 13 Jan Re-admitted consult dictated Medical History: Medical History (Last Reviewed 12/13/18 @ 21:23 by Gen Butt MD) Neurogenic bowel (Chronic) K59.2 Neurogenic bladder (Chronic) N31.9 Chronic back pain (Chronic) M54.9, G89.29 History of migraine (Chronic) Z86.69 Depression (Chronic) F32.9 Spina bifida aperta of lumbar spine (Chronic) Q05.7 s/p surgery x 2 weakness and numbness in legs neurogenic bladder and frequent UTIs Non-compliance (Chronic) Z91.19 Morbid obesity with BMI of 40.0-44.9, adult (Chronic) E66.01, Z68.41 Diabetes mellitus, type II (Chronic) E11.9 not well controlled Hydronephrosis of right kidney (Chronic) N13.30 Consult dictated, For now Treat UTI and make sure pt does self cath. Will follow, no need yet for cysto retros etc. But this may change in future 13 Sept Re-admitted consult dictated UTI (urinary tract infection) (Resolved) N39.0 Allergies mushroom Allergy (Verified 12/13/18 13:49) Anaphylaxis peanut Allergy (Verified 12/13/18 13:49) Anaphylaxis Gadolinium-MRI Contrast Medium Adverse Reaction (Verified 12/13/18 13:49) Vomiting Home Medications: Ambulatory Orders Medication Instructions Recorded metFORMIN (XR) [Glucophage Xr] 1,000 mg PO BID 06/19/16 Atorvastatin Calcium [Lipitor] 10 mg PO QHS 11/07/17 Pseudoephedrine HCl [Sudogest] 30 mg PO Q6H PRN PRN 01/21/18 Pregabalin [Lyrica] 75 mg PO DAILY 02/25/18 Buspirone HCl 15 mg PO BID 04/11/18 Polyethylene Glycol 3350 [Miralax] 17 gm PO DAILY PRN PRN 04/13/18 Liraglutide [Victoza] 1.2 mg SQ DAILY 07/03/18 Duloxetine HCl 60 mg PO DAILY 08/28/18 Furosemide [Lasix] 20 mg PO DAILY@1700 08/28/18 Furosemide [Lasix] 40 mg PO DAILY 08/28/18 Loratadine [Claritin] 10 mg PO DAILY 08/28/18 Propranolol HCl 10 mg PO DAILY 08/28/18 Oxybutynin [Ditropan] 15 mg PO DAILY 10/23/18 Phenazopyridine HCl [Pyridium] 200 mg PO Q8H PRN PRN #14 tab 12/08/18 Surgical History: Surgical History (Last Reviewed 12/13/18 @ 21:23 by Gen Butt MD) History of cholecystectomy Z90.49 History of dilation and curettage Z98.890 History of spinal surgery Z98.890 Hx of foot surgery Z98.890 Hx of ventral hernia repair Z98.890, Z87.19 Status post gastric surgery Z98.890 Surgical History: cholecystectomy, - - D&C, lumbar back surgery x2, foot surgery x2, abdominal stoma, ventral hernia repair. 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 Lives: Spouse/ Significant Other Smoking Status: Never smoker Tobacco Use: Secondhand Drugs: None - *Family History Maternal Family History: Family History (Last Reviewed 12/13/18 @ 21:16 by Gen Butt MD) Mother CVA (cerebral vascular accident) Thyroid disorder Diabetes Hypertension History Items: Cancer, Diabetes, Hypertension, Stroke Paternal Family History: Family History (Last Reviewed 12/13/18 @ 21:16 by Gen Butt MD) Mother CVA (cerebral vascular accident) Thyroid disorder Diabetes Hypertension History Items: No pertinent history Sibling Family History: Family History (Last Reviewed 12/13/18 @ 21:16 by Gen Butt MD) Mother CVA (cerebral vascular accident) Thyroid disorder Diabetes Hypertension History Items: No pertinent history Review of Systems Constitutional: Denies: Chills, Fever, Weight Change Cardiovascular: Denies: Chest Pain, Palpitations Respiratory: Denies: Cough, Shortness of breath at rest, Sputum production Gastrointestinal: Denies: Nausea, Vomiting Skin: Reports: - - Ulcer left heel Neurological: Reports: - - Diabetic neuropathy Patient Problems: Active and Suspected Problems (Last Reviewed 12/13/18 @ 21:23 by Gen Butt MD) Diabetic infection of left foot (Acute) Wound infection (Acute) - Physical Exam General: Alert, Oriented x3, Cooperative, No apparent distress Extremities: No cyanosis, Capillary Refill Less than 3 Seconds - To remaining distal digits of the right foot, No Calf Tenderness - Negative Angella and Pinto signs, Edema - Minor lower extremity edema, Peripheral Pulses Normal Skin: Ulcer/ Wound - Ulcer noted with fat layer exposed to the left heel. Ulcer measures approximately 2.5 cm x 2.0 cm x 0.2 cm. The base is majority of granular tissue. Base is also noted to have adherent slough, fibrin, biofilm as well as some surrounding hyperkeratotic tissue. There is no deep probing to bone, tracking, or undermining noted. Very mild surrounding erythema, no streaking cellulitis, no significant increase in warmth, and no purulence or any other drainage appreciated. Musculoskeletal: No Tenderness to Palpation of Joints or Extremities, - - Prev ious partial fifth ray amputation Neurological: - - Epicritic sensation grossly absent to lower extremity consistent with diabetic neuropathy Psych/Mental Status: Normal Affect, Appropriate Vital Signs Temp Pulse Resp BP Pulse Ox 98.9 F 63 16 96/55 L 95 12/14/18 14:20 12/14/18 14:20 12/14/18 14:20 12/14/18 14:20 12/14/18 14:20 Oxygen Delivery Method Room Air Weight: 104.1 kg Body Mass Index (BMI) 42.0 Finger Stick Blood Glucose 187 Intake and Output for Last 24 Hours 12/12/18 12/13/18 12/14/18 23:59 23:59 23:59 Intake Total 939 / 939 Output Total 3000 / 3000 Balance -2060 / -2060 Microbiology Past 72 Hours 12/13/18 17:40 Urine Culture - Preliminary Urine Catheter - Catheter Gram negative sue 12/13/18 17:30 Gram Stain - Final Wound - Aerobic Swab Wound Culture - Preliminary Beta hemolytic organism 12/14/18 07:30 Gram Stain - Final Wound - Heel, Left Laboratory Tests Past 24 Hrs 12/13/18 12/13/18 12/13/18 16:50 16:50 16:50 WBC 10.2 RBC 4.32 Hgb 12.6 Hct 38.4 MCV 88.9 MCH 29.2 MCHC 32.8 RDW Std Deviation 46.5 H RDW Coeff of Claude 14.5 Plt Count 249 MPV 11.8 Immature Gran % (Auto) 0.500 Neut % (Auto) 61.4 Lymph % (Auto) 24.4 [place] % (Auto) 9.8 Eos % (Auto) 3.3 Baso % (Auto) 0.6 Absolute Neuts (auto) 6.3 Absolute Lymphs (auto) 2.50 Absolute Nucleated RBC 0.00 Nucleated RBC % 0 ESR 62 H PT Cancelled INR Cancelled APTT Cancelled Sodium 138 Potassium 4.5 Chloride 103 Carbon Dioxide 28.0 Anion Gap 7 BUN 10 Creatinine 0.93 Estim Creat Clear Calc 65.51 Est GFR (MDRD) Af Amer 87 Est GFR (MDRD) Non-Af 72 BUN/Creatinine Ratio 10.8 Glucose 147 H Lactic Acid Calcium 9.5 Total Bilirubin 0.50 AST 66 H ALT 52 Alkaline Phosphatase 92 C-React Prot Ext Range 9.40 H Total Protein 8.6 H Albumin 3.5 Globulin 5.1 H Albumin/Globulin Ratio 0.7 L Urine Color Urine Clarity Urine pH Ur Specific [place] Urine Protein Urine Glucose (UA) Urine Ketones Urine Occult Blood Urine Nitrite Urine Bilirubin Urine Urobilinogen Ur Leukocyte Esterase Urine RBC Urine WBC Ur Squamous Epith Cells Urine Bacteria Urine Mucus S.aureus Protein A PCR MRSA (PCR) 12/13/18 12/13/18 12/13/18 16:50 17:40 17:40 WBC RBC Hgb Hct MCV MCH MCHC RDW Std Deviation RDW Coeff of Claude Plt Count MPV Immature Gran % (Auto) Neut % (Auto) Lymph % (Auto) [place] % (Auto) Eos % (Auto) Baso % (Auto) Absolute Neuts (auto) Absolute Lymphs (auto) Absolute Nucleated RBC Nucleated RBC % ESR PT 12.9 INR 1.0 APTT 31.5 Sodium Potassium Chloride Carbon Dioxide Anion Gap BUN Creatinine Estim Creat Clear Calc Est GFR (MDRD) Af Amer Est GFR (MDRD) Non-Af BUN/Creatinine Ratio Glucose Lactic Acid 1.7 Calcium Total Bilirubin AST ALT Alkaline Phosphatase C-React Prot Ext Range Total Protein Albumin Globulin Albumin/Globulin Ratio Urine Color Yellow Urine Clarity Sl. Cloudy Urine pH 7.0 Ur Specific [place] 1.010 Urine Protein 30 H Urine Glucose (UA) Normal Urine Ketones Negative Urine Occult Blood 50 H Urine Nitrite Negative Urine Bilirubin Negative Urine Urobilinogen Normal Ur Leukocyte Esterase 25 H Urine RBC 0-5 SEEN Urine WBC 0-5 SEEN Ur Squamous Epith Cells 0-5 SEEN Urine Bacteria 0 SEEN Urine Mucus 0 SEEN S.aureus Protein A PCR MRSA (PCR) 12/13/18 12/14/18 12/14/18 21:40 05:17 05:17 WBC 7.6 RBC 4.13 L Hgb 11.7 L Hct 36.7 L MCV 88.9 MCH 28.3 MCHC 31.9 L RDW Std Deviation 46.7 H RDW Coeff of Claude 14.6 Plt Count 244 MPV 10.8 Immature Gran % (Auto) 0.700 Neut % (Auto) 54.9 Lymph % (Auto) 28.3 [place] % (Auto) 11.6 H Eos % (Auto) 4.0 Baso % (Auto) 0.5 Absolute Neuts (auto) 4.2 Absolute Lymphs (auto) 2.15 Absolute Nucleated RBC 0.00 Nucleated RBC % 0 ESR PT INR APTT Sodium 140 Potassium 3.8 Chloride 104 Carbon Dioxide 27.0 Anion Gap 9 BUN 12 Creatinine 0.97 Estim Creat Clear Calc 62.80 Est GFR (MDRD) Af Amer 84 Est GFR (MDRD) Non-Af 69 BUN/Creatinine Ratio 12.4 Glucose 198 H Lactic Acid Calcium 8.8 Total Bilirubin AST ALT Alkaline Phosphatase C-React Prot Ext Range 8.55 H Total Protein Albumin Globulin Albumin/Globulin Ratio Urine Color Urine Clarity Urine pH Ur Specific [place] Urine Protein Urine Glucose (UA) Urine Ketones Urine Occult Blood Urine Nitrite Urine Bilirubin Urine Urobilinogen Ur Leukocyte Esterase Urine RBC Urine WBC Ur Squamous Epith Cells Urine Bacteria Urine Mucus S.aureus Protein A PCR MRSA (PCR) 12/14/18 07:30 WBC RBC Hgb Hct MCV MCH MCHC RDW Std Deviation RDW Coeff of Claude Plt Count MPV Immature Gran % (Auto) Neut % (Auto) Lymph % (Auto) [place] % (Auto) Eos % (Auto) Baso % (Auto) Absolute Neuts (auto) Absolute Lymphs (auto) Absolute Nucleated RBC Nucleated RBC % ESR PT INR APTT Sodium Potassium Chloride Carbon Dioxide Anion Gap BUN Creatinine Estim Creat Clear Calc Est GFR (MDRD) Af Amer Est GFR (MDRD) Non-Af BUN/Creatinine Ratio Glucose Lactic Acid Calcium Total Bilirubin AST ALT Alkaline Phosphatase C-React Prot Ext Range Total Protein Albumin Globulin Albumin/Globulin Ratio Urine Color Urine Clarity Urine pH Ur Specific [place] Urine Protein Urine Glucose (UA) Urine Ketones Urine Occult Blood Urine Nitrite Urine Bilirubin Urine Urobilinogen Ur Leukocyte Esterase Urine RBC Urine WBC Ur Squamous Epith Cells Urine Bacteria Urine Mucus S.aureus Protein A PCR POSITIVE H MRSA (PCR) Negative POC Glucose 12/14/18 12/14/18 12/13/18 11:58 06:36 22:20 POC Glucose 269 H 218 H 249 H Assessment/Plan All Active Problems (Last Reviewed 12/13/18 @ 21:23 by Gen Butt MD) Sepsis due to cellulitis (Resolved) Decubitus ulcer of left heel (Acute) Delayed wound healing (Acute) Chest pain (Acute) Cellulitis of left lower extremity (Resolved) Diabetic infection of left foot (Acute) Wound infection (Acute) UTI (urinary tract infection) (Resolved) This patient was carefully examined and evaluated in detail resting in bed this afternoon. Patient currently feels well. Vital signs are stable. White blood count is 7.6. Blood cultures pending. Wound cultures though preliminary growth of beta-hemolytic organism. Urine culture shows gram-negative sue. Infectious disease on consult and is appreciated. Three-view x-rays taken of the left foot with no evidence of gas in the soft tissue or osseous destruction consistent with osteomyelitis in area of ulcer site. Subcutaneous excisional debridement was then performed bedside after obtaining patient's verbal consent. Removal of all adherent slough, fibrin, biofilm and hyperkeratotic tissue. 10 0% of the ulcer was debrided using a combination of a #15 scalpel blade and a #3 curette. No anesthesia was needed due to patient's diabetic neuropathy. Hemostasis was easily and promptly achieved using pressure. Minimal blood loss. Post debridement measurements were 2.6 cm x 2.1 cm x 0.2 cm. Patient tolerated the procedure well. Once complete the site was carefully cleansed and then dressed with Aquacel Ag to the base followed by a dry sterile dressing. Nursing to change the dressing in this manner on a daily basis. Patient is instructed to keep the heel floated with absolutely no pressure to the heel ulcer site at all times while seated or lying down. If patient is to be weightbearing she is to bear weight to the left forefoot keeping pressure away from the ulcer site. Patient states that upon discharge she already has appointment scheduled with Dr. Gomez to follow her left heel ulcer. Podiatry can follow this patient on an as-needed basis at this time. Please contact with any questions.
[2018-12-14] MEDS: Furosemide 20 MG Tablet PO (16:43)
[2018-12-14 17:41] LABS: Bedside Glucose 200 mg/dL (70-110)
[2018-12-14 19:56] VITALS: BP 100/61; PULSE 71; RESP 16; TEMP 36.7; O2SAT 99
[2018-12-14] MEDS: Atorvastatin Calcium 10 MG Tablet PO (21:25)
[2018-12-14 21:35] LABS: Bedside Glucose 282 mg/dL (70-110)
[2018-12-15 02:09] VITALS: PULSE 63; RESP 196; TEMP 36.6; O2SAT 92
[2018-12-15] MEDS: Insulin Lispro 100 UNIT/ML INSULN.PEN SC (06:52)
[2018-12-15 07:01] LABS: Bedside Glucose 191 mg/dL (70-110)
[2018-12-15 08:12] VITALS: BP 109/66; PULSE 71; RESP 16; TEMP 37.3; O2SAT 97
[2018-12-15] MEDS: Pregabalin 75 MG Capsule PO (10:05)
[2018-12-15] MEDS: Enoxaparin 40 MG/0.4 ML Syringe SC (10:05)
[2018-12-15] MEDS: Furosemide 40 MG Tablet PO (10:05)
[2018-12-15] MEDS: Tolterodine Tartrate 4 MG CAP.SA PO (10:06)
[2018-12-15] MEDS: busPIRone 15 MG TABLET PO (10:06)
[2018-12-15] MEDS: Propranolol 10 MG Tablet PO (10:06)
[2018-12-15] MEDS: Loratadine 10 MG Tablet PO (10:06)
[2018-12-15] MEDS: DULoxetine Hcl 60 MG Capsule PO (10:06)
--- NOTE | 2018-12-15 11:24 | PCM.DC ---
- Discharge Diagnoses Current Active Problems: Current Active and Chronic Problems (Last Reviewed 12/13/18 @ 21:23 by Gen Butt MD) Diabetic infection of left foot (Acute) Wound infection (Acute) You will use the following diet at home:: Calorie/Carbohydrate Controlled (specify 1200, 1400, etc) Discharge Activity: Return to Normal Activity Call your doctor if you observe: Shortness of breath, Dizziness, Fainting spells, Chest pain Additional Instructions: Keep weight on left forefoot, do not put pressure on left heel ulcer site. You will need to complete daily dressing changes to left heel by cleaning the area, then dressed with Aquacel Ag and cover with dry sterile dressing. Allergies/Adverse Reactions: Allergies mushroom Allergy (Verified 12/13/18 13:49) Anaphylaxis peanut Allergy (Verified 12/13/18 13:49) Anaphylaxis Gadolinium-MRI Contrast Medium Adverse Reaction (Verified 12/13/18 13:49) Vomiting Medications to take at Discharge metFORMIN (XR) [Glucophage Xr] 1,000 mg PO BID 06/19/16 Atorvastatin Calcium [Lipitor] 10 mg PO QHS 11/07/17 Pseudoephedrine HCl [Sudogest] 30 mg PO Q6H PRN PRN 01/21/18 Pregabalin [Lyrica] 75 mg PO DAILY 02/25/18 Buspirone HCl 15 mg PO BID 04/11/18 Polyethylene Glycol 3350 [Miralax] 17 gm PO DAILY PRN PRN 04/13/18 Liraglutide [Victoza] 1.2 mg SQ DAILY 07/03/18 Duloxetine HCl 60 mg PO DAILY 08/28/18 Furosemide [Lasix] 20 mg PO DAILY@1700 08/28/18 Furosemide [Lasix] 40 mg PO DAILY 08/28/18 Loratadine [Claritin] 10 mg PO DAILY 08/28/18 Propranolol HCl 10 mg PO DAILY 08/28/18 Oxybutynin [Ditropan] 15 mg PO DAILY 10/23/18 Phenazopyridine HCl [Pyridium] 200 mg PO Q8H PRN PRN #14 tab 12/08/18 Amox/Clavulanate Tablet [Augmentin Tablet] 875 mg PO Q12H #28 tab 12/15/18 The following prescriptions were given: Amox/Clavulanate Tablet [Augmentin Tablet] 875 mg PO Q12H #28 tab Transmission Status: Pending to [facility] Primary Care Physician: Will Shukla MD [Primary Care Provider] - Please follow up with your Primary Care Physician in: 1 Week Test Results: Test results from this visit will be discussed in further detail at your follow-up appointment, if applicable. Please Follow Up With: Clinic,Wound When: 3-5 days Please Follow Up With: Gaurav Gomez DPM When: As scheduled next week. Please Follow Up With: [place] [facility] When: As scheduled next week Proposed Discharge Date: 12/15/18
[2018-12-15 12:21] VITALS: BP 110/90; PULSE 102; RESP 18; TEMP 37.1; O2SAT 96
--- NOTE | 2018-12-15 12:36 | PCM.DC.SUM ---
<Megan Clark - Last Filed: 12/15/18 12:45> Discharge Date and Diagnosis Date of Admission: 12/13/18 Date of Discharge: 12/15/18 - Primary Discharge Diagnosis Active and Suspected Problems (Last Reviewed 12/13/18 @ 21:23 by Gen Butt MD) 1. Acute suprapubic catheter site infection, acute complicated stenotrophomonas UTI 2. Left heel diabetic wound with associated cellulitis, Staphylococcus species 3. History of spina bifida with neurogenic bladder, neurogenic bowel, chronic back pain with lumbar spine surgery x2 4. Anxiety/depression 5. History of migraines 6. Type 2 diabetes mellitus 7. Hyperlipidemia 8. Morbid obesity 9. 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 layer exposed (Chronic) Type 2 diabetes mellitus with diabetic polyneuropathy (Chronic) Lower extremity edema (Chronic) Ulcer of left heel and midfoot with fat layer exposed (Chronic) Diabetes mellitus with neuropathy (Chronic) Edema of left lower extremity (Chronic) Constipation (Chronic) Neurogenic bowel (Chronic) Neurogenic bladder (Chronic) Chronic back pain (Chronic) History of migraine (Chronic) Depression (Chronic) 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 Will follow, no need yet for cysto retros etc. But this may change in future 13 Sept Re-admitted consult dictated Hospital Course and Treatment Imaging Results: Diagnostic Data Abdomen/Pelvis CT 12/13/18 15:40 IMPRESSION: Likely chronic mild right hydronephrosis. No perinephric stranding is noted. No obstructing stone is noted. The right hydronephrosis is improved when compared to the previous study. There is evidence of air within the mid and distal right ureter likely from Morales catheter placement. Bladder is collapsed around a suprapubic catheter Retained stool noted throughout the colon which may be impacted No suspicious solid organ abnormality Electronically Signed: Jarod Jaimes MD at 18:34 EDT , Service support , Foot X-Ray 12/13/18 17:40 IMPRESSION: Diffuse soft tissue swelling. 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 No interval change Electronically Signed: Jarod Jaimes MD at 18:02 EDT , Service support , Consultations 12/13/18 21:24 Consult: Onc/Wound/strategic account director Routine Comment: Reason for Consult:: left heel wound; and suprapubic catheter wound Dr. Faria- Podiatry Dr. Toro- ID Operations: None Procedures: None Summary of Care Provided: The patient is a 38 year old F admitted 12/13/2018 due to pain in left heel. 1. Acute suprapubic catheter site infection, acute complicated stenotrophomonas UTI-patient has history of neurogenic bladder with suprapubic catheter insertion approximately 1 month. She reports her catheter was last changed November 26, 2017. Patient reports she was previously self cathing at home however was having frequent infections and developed kidney problems which prompted insertion of suprapubic catheter. CT of abdomen and pelvis on admission showed chronic mild right hydronephrosis and some retained stool. Urine culture showing stenotrophomonas. Infectious disease feels this is colonization. Discharged on Augmentin as noted below. Patient has follow-up next Monday with urologist in [place]. 2. Left heel diabetic wound with associated cellulitis-ID consulted admission. Patient received IV Unasyn. Daily dressing changes with Aquacel Ag and dry sterile dressing. Patient had been following with wound center previously and will need further follow-up at discharge. Wound culture showing staph/strep organisms. Patient initially was to go to SNF given frequent admissions however she refused and decided on discharge home. Refused home health as well. Spoke with infectious disease who recommends discharge on Augmentin 875 mg twice daily for 14 days. Follow-up with podiatry, wound center and primary care provider. 3. History of spina bifida with neurogenic bladder, neurogenic bowel, chronic back pain with lumbar spine surgery x2-continue home Lyrica regimen. 4. Anxiety/depression-continue home buspirone, duloxetine regimen. 5. History of migraines-continue home propanolol regimen. 6. Type 2 diabetes mellitus-continue home regimen. 7. Hyperlipidemia-continue statin. 8. Morbid obesity-encourage diet and lifestyle modifications. 9. Chronic constipation due to neurogenic bowel from history of spina bifida-continue bowel regimen. General: Alert, Oriented x3, Cooperative HEENT: Atraumatic, PERRLA, EOMI, Normocephalic Neck: Supple, No JVD, Negative Carotid Bruits Lungs: Clear to auscultation, Normal air movement Cardiovascular: Regular rate, Regular Rhythm, Normal S1, Normal S2, No murmurs Abdomen: Bowel Sounds Present, Soft, Non Tender, Non-Distended, Obese, - - Suprapubic catheter in place Extremities: No clubbing, No cyanosis, No edema, Capillary Refill Less than 3 Seconds Skin: No rashes, No breakdown, - - Left heel wound, dressing clean dry and intact Musculoskeletal: No Tenderness to Palpation of Joints or Extremities Neurological: Cranial nerves II-XII grossly intact, Neuro grossly intact Psych/Mental Status: Normal Affect, Appropriate Patient seen and examined prior to discharge. Physical assessment as noted above. Patient is stable for discharge with follow up recommendations as noted above. This patient was seen by NACHO Maravilla under the supervision of Dr. Hendricks. - Physical Exam Vital Signs Temp Pulse Resp BP Pulse Ox 98.8 F 102 H 18 110/90 H 96 12/15/18 12:21 12/15/18 12:21 12/15/18 12:21 12/15/18 12:21 12/15/18 12:21 Oxygen Delivery Method Room Air Weight: 229 lb 8.019 oz Body Mass Index (BMI) 42.0 Finger Stick Blood Glucose 187 Intake and Output for Last 24 Hours 12/13/18 12/14/18 12/15/18 23:59 23:59 23:59 Intake Total 2257 / 2257 839 / 839 Output Total 4300 / 4300 220 / 220 Balance -2043 / -2043 619 / 619 Microbiology Past 72 Hours 12/14/18 07:30 Gram Stain - Final Wound - Heel, Left Wound Culture - Preliminary Staphylococcus aureus 12/13/18 17:40 Urine Culture - Final Urine Catheter - Catheter Stenotrophomonas maltophilia 12/13/18 17:30 Gram Stain - Final Wound - Aerobic Swab Wound Culture - Preliminary Staphylococcus aureus Streptococcus group A POC Glucose 12/15/18 12/14/18 12/14/18 06:50 21:28 16:42 POC Glucose 191 H 282 H 200 H Discharge Diet: Carb Control Diet Discharge Activity: Return to Normal Activity Call your doctor if you observe: Shortness of breath, Dizziness, Fainting spells, Chest pain Home Medications: Medications to take at Discharge metFORMIN (XR) [Glucophage Xr] 1,000 mg PO BID 06/19/16 Atorvastatin Calcium [Lipitor] 10 mg PO QHS 11/07/17 Pseudoephedrine HCl [Sudogest] 30 mg PO Q6H PRN PRN 01/21/18 Pregabalin [Lyrica] 75 mg PO DAILY 02/25/18 Buspirone HCl 15 mg PO BID 04/11/18 Polyethylene Glycol 3350 [Miralax] 17 gm PO DAILY PRN PRN 04/13/18 Liraglutide [Victoza] 1.2 mg SQ DAILY 07/03/18 Duloxetine HCl 60 mg PO DAILY 08/28/18 Furosemide [Lasix] 20 mg PO DAILY@1700 08/28/18 Furosemide [Lasix] 40 mg PO DAILY 08/28/18 Loratadine [Claritin] 10 mg PO DAILY 08/28/18 Propranolol HCl 10 mg PO DAILY 08/28/18 Oxybutynin [Ditropan] 15 mg PO DAILY 10/23/18 Phenazopyridine HCl [Pyridium] 200 mg PO Q8H PRN PRN #14 tab 12/08/18 Amox/Clavulanate Tablet [Augmentin Tablet] 875 mg PO Q12H #28 tab 12/15/18 Following Prescrptions Were Given to Patient: Amox/Clavulanate Tablet [Augmentin Tablet] 875 mg PO Q12H #28 tab Transmission Status: Received by [facility] Primary Care Physician: Will Shukla MD [Primary Care Provider] - Please follow up with your Primary Care Physician in: 1 Week Please Follow Up With: Clinic,Wound When: 3-5 days Please Follow Up With: Gaurav Gomez DPM When: As scheduled next week. Please Follow Up With: [place] Urologist When: As scheduled next week Disposition: Home Minutes spent on discharge:: 35 Patient Condition:: Stable Medical Necessity - Tobacco Use Smoking Status: Never smoker Tobacco Use: Secondhand Meaningful Use Info Meaningful Use Diagnoses (Choose all that apply): None applicable <[email or web address] [email or web address] - Last Filed: 12/15/18 13:53> Discharge Date and Diagnosis - Secondary Discharge Diagnosis Chronic Problems (Last Reviewed 12/13/18 @ 21:23 by Gen Butt MD) Normochromic normocytic anemia (Chronic) HGB normal in Apr 2018 Diabetic ulcer of left heel with fat layer exposed (Chronic) Type 2 diabetes mellitus with diabetic polyneuropathy (Chronic) Lower extremity edema (Chronic) Ulcer of left heel and midfoot with fat layer exposed (Chronic) Diabetes mellitus with neuropathy (Chronic) Edema of left lower extremity (Chronic) Constipation (Chronic) Neurogenic bowel (Chronic) Neurogenic bladder (Chronic) Chronic back pain (Chronic) History of migraine (Chronic) Depression (Chronic) 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 Will follow, no need yet for cysto retros etc. But this may change in future 13 Sept Re-admitted consult dictated Hospital Course and Treatment Consultations 12/13/18 21:24 Consult: Onc/Wound/strategic account director Routine Comment: Reason for Consult:: left heel wound; and suprapubic catheter wound Summary of Care Provided: The patient is a 38 year old F [] - Physical Exam Vital Signs Temp Pulse Resp BP Pulse Ox 98.8 F 102 H 18 110/90 H 96 12/15/18 12:21 12/15/18 12:21 12/15/18 12:21 12/15/18 12:21 12/15/18 12:21 Oxygen Delivery Method Room Air Weight: 229 lb 8.019 oz Body Mass Index (BMI) 42.0 Finger Stick Blood Glucose 187 Intake and Output for Last 24 Hours 0712/14/18 12/15/18 23:59 23:59 23:59 Intake Total 2257 / 2257 839 / 839 Output Total 4300 / 4300 220 / 220 Balance -2043 / -2043 619 / 619 Microbiology Past 72 Hours 12/14/18 07:30 Gram Stain - Final Wound - Heel, Left Wound Culture - Preliminary Staphylococcus aureus 12/13/18 17:40 Urine Culture - Final Urine Catheter - Catheter Stenotrophomonas maltophilia 12/13/18 17:30 Gram Stain - Final Wound - Aerobic Swab Wound Culture - Preliminary Staphylococcus aureus Streptococcus group A POC Glucose 12/15/18 12/14/18 12/14/18 06:50 21:28 16:42 POC Glucose 191 H 282 H 200 H Code Visit Addendum: Dr. Hendricks I personally examined the patient and reviewed the chart. I agree with the above. 38-year-old morbidly obese female with a history of spina bifida presents with unhealed left heel diabetic wound as well as a UTI in the setting of neurogenic bladder suprapubic catheter. She has had multiple hospitalizations as well as admissions to nursing homes for this issue. Urine cultures showing stenotrophomonas and infectious diseases feels that this is colonization, however they did say that she could be discharged on Augmentin and follow-up as an outpatient. She also has a urology follow-up in [place] next week. We had extensive discussions with the patient about the necessity of being discharged to a correction and she refused because she believes that she can take care of her wound at home on her own with her , she also refused to have home health make visits to the house as well to help with dressing changes and to just evaluate the wound. She will need to follow-up with podiatry as an outpatient. Inpatient E&M: [id number] Disch Hosp
--- NOTE | 2018-12-17 10:03 | CASEMGMT ---
Social Work Note Pt discharged home 12/15/2018. SW placed a call to Kelly at [facility] and updated her that pt discharged home. Kati Martinez JIG WORKER, CUSTOMER SUPPORT CONSULTANT
== END 2018-12-15 12:43 | disposition home or self-care (01) | DRG 674 ==
LOC: ED 20:27 → MS3 20:50
PROVIDERS: Admitting Provider Hospitalist; Emergency Provider Emergency Medicine; Family Provider Family Medicine; PCP Family Medicine; Visit Provider Family Medicine
DX: N99.521 Infection of incontinent external stoma of urinary tract (principal); T83.510A Infection and inflammatory reaction due to cystostomy catheter, initial encounter; N39.0 Urinary tract infection, site not specified; L03.116 Cellulitis of left lower limb; Z68.41 Body mass index [BMI] 40.0-44.9, adult; K59.2 Neurogenic bowel, not elsewhere classified; L97.422 Non-pressure chronic ulcer of left heel and midfoot with fat layer exposed; B96.89 Other specified bacterial agents as the cause of diseases classified elsewhere; N31.9 Neuromuscular dysfunction of bladder, unspecified; E78.5 Hyperlipidemia, unspecified; E66.01 Morbid (severe) obesity due to excess calories; K59.09 Other constipation; Q05.7 Lumbar spina bifida without hydrocephalus; E11.621 Type 2 diabetes mellitus with foot ulcer; E11.42 Type 2 diabetes mellitus with diabetic polyneuropathy; G43.909 Migraine, unspecified, not intractable, without status migrainosus; F32.9 Major depressive disorder, single episode, unspecified; F41.9 Anxiety disorder, unspecified; Z77.22 Contact with and (suspected) exposure to environmental tobacco smoke (acute) (chronic); Z87.440 Personal history of urinary (tract) infections; G89.29 Other chronic pain; M54.9 Dorsalgia, unspecified; Z79.84 Long term (current) use of oral hypoglycemic drugs
CPT/HCPCS: 36415; 73630; 74176; 80048; 80053; 81001; 82962; 83605; 85025; 85610; 85652; 85730; 86140; 87040; 87070; 87077; 87086; 87186; 87205; 87640; 97802; 99285; J7030; A4216; J0295; J2405

== ENCOUNTER 2018-12-27 15:51 | Emergency (ER) | payer MEDICARE, MEDICAID, SELFPAY ==
[2018-12-27 08:53] VITALS: BMI 42.0
[2018-12-27 15:52] VITALS: BP 123/91; PULSE 92; RESP 15; TEMP 36.7; O2SAT 99; BMI 43.3
--- NOTE | 2018-12-27 16:27 | ED.DCSUM_ITS ---
- ER Visit Summary Date of Service: 12/27/18 Chief Complaint: Discolored urine History of Present Illness: The patient is a 38 F presenting with abdominal pain around her suprapubic cath and discolored urine. Patient states her suprapubic cath was changed on November 26. She has had frequent urinary tract infections. She also has a wound to her left heel. This was debrided today by Dr. Faria. Dressing was applied. Patient was advised to follow-up for recheck of this in 1 week. She denies fever. Denies other complaints. Physical Examination: Vitals are stable. Patient is afebrile. Alert no acute distress. HEENT exam is unremarkable. Neck is supple. Lungs are clear and equal bilaterally. Heart is regular rate and rhythm. Abdomen is soft, suprapubic cath. Mild tenderness surrounding the catheter. There are no areas of drainage or fluctuance. Extremities left heel dressing intact. Skin is warm and dry. Remainder of exam is unremarkable. Emergency Department Course and Treatment: Patient was given IV fluids, morphine, Zofran. CBC shows white count 16.7. Chemistries normal except glucose 282, creatinine 1.18. Urinalysis shows 0-5 white blood cells, 0 red cells. hCG negative. Urine culture was sent. On reevaluation, patient is feeling improved and is resting comfortably. She is advised to follow-up with her primary care physician. Advised return to ED for worsening complaints. Disposition: Discharge home Impression: Abdominal pain, chronic left heel wound This note was generated with [employer] dictation software. It may contain incorrect words, spelling, and punctuation that were not noted in review of the chart prior to signing ED Disposition - Plan for ED Patient: Instructions: ABDOMINAL PAIN, Unknown Cause, (Female) Referrals: Will Shukla MD [Primary Care Provider] -
[2018-12-27] MEDS: Ondansetron 4 MG/2 ML Vial IV (16:52)
[2018-12-27] MEDS: Morphine 4 MG/ML Syringe IV (16:52)
[2018-12-27 16:56] VITALS: BP 123/91; PULSE 92; RESP 15; TEMP 36.7; O2SAT 99
[2018-12-27 17:00] LABS: Absolute Lymphocyte Count 1.53 X10^3/uL (0.83-4.51); Absolute Neutrophil Count 13.8 X10^3/uL (2.0-7.7); Basophil# 0.08 X10^3/uL; Basophil% 0.5 % (0-1); Eosinophils% 1.2 % (0-5); Hematocrit 39.1 % (37-47); Hemoglobin 12.8 g/dL (12.0-15.0); Lymphocyte # 1.53 X10^3/ul (4.0); Lymphocyte % 9.2 % (19-41); Mean Corp Hgb Conc 32.7 g/dL (32-36); Mean Corpuscular Hgb 29.1 pg (27.0-32.0); Mean Corpuscular Volume 88.9 fL (81-99); Mean Platelet Vol. 10.4 fl (6.2-12.0); Monocyte# 0.97 X10^3/uL; Monocyte% 5.8 % (0-10); NRBC Flagged by Analyzer 0 % (0-5); Neutrophil # 13.75 X10^3/uL (2.7-7.7); Neutrophil % 82.4 % (47-70); Platelet Count 250 K/mm3 (150-450); RBC Distribution Width CV 14.1 % (11.6-14.6); RBC Distribution Width SD 45.7 fl (35.1-43.9); White Blood Count 16.7 K/mm3 (4.4-11.0)
[2018-12-27 17:18] LABS: Anion Gap 11 (5-15); BUN 14 mg/dL (7-18); BUN/Creat Ratio 11.9 RATIO (10-20); Chloride 105 mmol/L (98-107); Creatinine, Serum 1.18 mg/dL (0.55-1.02); EST Glomerular Filtration Rate 55 mL/min (>60); Est Glom Filt Rate - Afr Amer 66 mL/min (>60); Estimated Creatinine Clearance 49.26 ml/min; Glucose 282 mg/dL (74-106); Sodium Level 137 mmol/L (136-145)
[2018-12-27 17:34] LABS: Bacteria 0 SEEN /hpf (None Seen); Mucous, Urine 0 SEEN /hpf (<or=2+); Red Blood Cells-Urine 0 SEEN /hpf (0-5)
[2018-12-27 17:52] LABS: Color, Urine Yellow (Yellow); Glucose, Dipstick 1000 mg/dl (Normal); Ketone-Dipstick Negative (Negative); Leukocyte Esterase-Dipstick 25 /ul (Negative); Nitrite-Dipstick Positive (Negative); Occult Blood-Urine Negative /ul (Negative); Protein-Dipstick 30 mg/dl (Negative); Urine Bilirubin Dipstick Negative (Negative); Urine Clarity Clear (Clear); Urine Urobilinogen Normal (Normal); Urine pH 6.5 (5.0 - 8.0)
[2018-12-27 17:56] LABS: Internal QC Validated? YES +Cl - CLEAR BKGD; Pregnancy, Urine Negative Negative; Squamous Epithelial Cells - UA 0-5 SEEN /hpf (5-10); White Blood Cells 0-5 SEEN /hpf (0-5)
--- NOTE | 2018-12-27 18:06 | ED.DEP ---
ED Disposition - Plan for ED Patient: Instructions: ABDOMINAL PAIN, Unknown Cause, (Female) Referrals: Will Shukla MD [Primary Care Provider] -
[2018-12-27 18:23] VITALS: BP 123/75; PULSE 86; RESP 18; O2SAT 99
== END 2018-12-27 18:24 | disposition home or self-care (01) ==
LOC: ED 16:34
PROVIDERS: Emergency Provider Emergency Medicine; Family Provider Family Medicine; PCP Family Medicine
DX: R10.9 Unspecified abdominal pain (principal); G89.29 Other chronic pain; Z87.440 Personal history of urinary (tract) infections; S91.302A Unspecified open wound, left foot, initial encounter; X58.XXXA Exposure to other specified factors, initial encounter; Y93.89 Activity, other specified; Y92.89 Other specified places as the place of occurrence of the external cause; Y99.9 Unspecified external cause status; E11.9 Type 2 diabetes mellitus without complications; N31.9 Neuromuscular dysfunction of bladder, unspecified; Q05.9 Spina bifida, unspecified
CPT/HCPCS: 11042; 80048; 81001; 81025; 85025; 87077; 87086; 87088; 87186; 99284; J7030; A4216; J2405

== ENCOUNTER 2019-01-03 13:10 | Emergency (ER) | payer MEDICARE, MEDICAID, SELFPAY ==
[2019-01-03 13:10] VITALS: BP 120/83; PULSE 84; RESP 18; TEMP 35.8; O2SAT 97; BMI 41.1
--- NOTE | 2019-01-03 13:37 | ED.DCSUM_ITS ---
History of Present Illness Chief Complaint: Wound Informant: Patient Onset: Month(s) Current Severity: Mild Narrative: History of diabetes suprapubic catheter spina bifida, chronic left heel infection, reports that basically she is under management by urologist at [facility] for the suprapubic catheter, Dr. Faria [facility] for the left heel ulcer, she was seen by [facility] Dr. Faria about 5 days ago she had the area debrided wound care was applied to indicates her has now refused to change her dressings to her lower extremity left foot, she also indicates her seems to be drainage from around the suprapubic catheter site, the suprapubic catheter is draining normal urine that is clear she is had no fever no cough no other complaints, and does have her scheduled follow-up appointments in place, the left heel ulcer area is unchanged in the suprapubic area is really unchanged Past Medical History - Allergies and Home Meds Allergies/Adverse Reactions: Allergies mushroom Allergy (Verified 01/03/19 13:15) Anaphylaxis peanut Allergy (Verified 01/03/19 13:15) Anaphylaxis Gadolinium-MRI Contrast Medium Adverse Reaction (Verified 01/03/19 13:15) Vomiting Primary Care Physician: Will Shukla MD [Primary Care Provider] - Past Medical History: - - As above Surgical History: cholecystectomy, - - D&C, lumbar back surgery x2, foot surgery x2, abdominal stoma, ventral hernia repair. Smoking Status: Never smoker - Family History Maternal Family History: Family History (Last Reviewed 12/13/18 @ 21:16 by Gen Butt MD) Mother CVA (cerebral vascular accident) Thyroid disorder Diabetes Hypertension Family History: Reports: Cancer, Diabetes, Hypertension, Stroke Paternal Family History: Family History (Last Reviewed 12/13/18 @ 21:16 by Gen Butt MD) Mother CVA (cerebral vascular accident) Thyroid disorder Diabetes Hypertension Family History: Reports: No pertinent history Sibling Family History: Family History (Last Reviewed 12/13/18 @ 21:16 by Gen Butt MD) Mother CVA (cerebral vascular accident) Thyroid disorder Diabetes Hypertension Family History: Reports: No pertinent history Review of Systems General: Reports: - - The chronic ulcer involving the left heel, the suprapubic catheter. Denies: Chills, Fever, Sweats Eyes: Denies: Visual changes - bilaterally, Diplopia ENT: Denies: Rhinorrhea, Sore throat Cardiovascular: Denies: Chest pain, Palpitations Respiratory: Denies: Dyspnea, Cough, Dyspnea on exertion Gastrointestinal: Denies: Abdominal pain, Nausea, Vomiting, Diarrhea, Melena, Hematochezia Genitourinary: Denies: Dysuria, Hematuria, Frequency Musculoskeletal: Denies: Back pain, Extremity Pain Skin: Denies: Rash, Wounds Neurological: Denies: Headache, Weakness, Numbness Physical Exam Vital Signs/Narrative: Vital Signs Temp Pulse Resp BP Pulse Ox 01/03/19 13:10 96.5 F L 84 18 120/83 H 97 General: Well nourished, Well developed, No Acute Distress Head: Normocephalic, Atraumatic Eyes: Perrl, EOMI ENT: Moist mucous membranes, No rhinorrhea Neck: Supple, Nontender Cardiovascular: Regular rate, Regular rhythm, No murmurs Respiratory: No distress, CTA bilaterally, Chest nontender Abdomen: Soft, Nontender, Nondistended, Normal bowel sounds, - - The suprapubic catheter is in place is draining clear yellow urine the suprapubic ostomy site is unremarkable there is no signs of drainage or odor crepitance or acute abnormality Back: Nontender, Normal Inspection Extremities: Nontender, No edema, - - There is a healing ulcer with some scaly skin over the left heel region there is no crepitance subcu air she has a prior amputation of the fifth toe Skin: Normal color, No rash Neurological: Alert, Oriented x3, Cranial nerves II-XII grossly intact, Normal Strength, Normal Sensation Psychological: Normal affect, Normal Mood Diagnostic/Tx/Re-eval - Medical Decision Making Had a long conversation with the patient after examining her and discussing her history with her it is apparent that there is really no acute change in any of her areas of concern such as a suprapubic ostomy site or the left heel ulcer, she is upset that she is having more more difficulty caring for herself related to the fact that her will not help her change her dressings, she indicates she wants to be admitted to the hospital until these issues can be resolved weighted to ongoing help with her dressings she indicates that every time she comes to the emergency department she gets admitted, I explained to her that this point time given her physical exam or history and all the above there is really no indication for admission there is no signs of active infection or anything acute I expressed understanding to her issues related to help with the wound dressings we were going to ask if social services counselor could intervene and prov amos assistance for that or contact the wound care center but then she became upset saying she simply wants to leave the hospital and she got up and left the emergency department Home stable Impression. Final Chronic left heel ulcer, diabetes spina bifida, suprapubic catheter ED Disposition - Plan for ED Patient: Diagnosis: Diabetic infection of left foot Instructions: Diabetic Foot Ulcers Referrals: Will Shukla MD [Primary Care Provider] - Additional Instructions: Continue your wound care management prescribed by your outpatient providers, keep all of your outpatient appointments with your outpatient providers, contact social services counselor for help with home wound care and other healthcare needs
--- NOTE | 2019-01-03 15:17 | CM.ED ---
Social Work After patient discharged from the ED, patient found this social service technician in Case Management office. Patient asking this social service technician for the contact number for the patient advocate. This social service technician providing patient with the patient advocate number as well as inquired as to patient concerns. Patient stating to have just been refused admission to the hospital. Patient beginning to cry. This social service technician offered verbal support. Patient stating to have come to the emergency department for wound care/management. Patient stating to know all the nurses and doctors in the emergency department and to have never had this happen before. Patient stating to have had a wound care center appointment today and to have over slept and missed the appointment. Patient stating to have woken up and came straight to the emergency department. This social service technician inquiring if patient had contact the wound healing center. Patient stating to have not been in contact with the wound healing center. This social service technician encouraging patient to contact the wound healing center for follow up with wound management as the wound healing center has been following patient care per patient. Patient voicing understanding and stating to plan to go to the wound healing center. Note: Patient does have a ED care plan in place. ED care plan appears to have been followed on this visit. Garrison RITCHIE, CLARIBEL
== END 2019-01-03 13:56 | disposition home or self-care (01) ==
LOC: ED 13:55
PROVIDERS: Emergency Provider Emergency Medicine; Family Provider Family Medicine; PCP Family Medicine
DX: E11.621 Type 2 diabetes mellitus with foot ulcer (principal); L97.429 Non-pressure chronic ulcer of left heel and midfoot with unspecified severity; L08.9 Local infection of the skin and subcutaneous tissue, unspecified; E11.9 Type 2 diabetes mellitus without complications; Q05.9 Spina bifida, unspecified; Z90.49 Acquired absence of other specified parts of digestive tract; Z82.3 Family history of stroke
CPT/HCPCS: 99282

== ENCOUNTER 2019-01-10 04:34 | Inpatient (IN) | payer MEDICARE, MEDICAID, SELFPAY ==
[2019-01-10] VITALS (14 sets, daily range): BP systolic 106–138; BP diastolic 57–78; PULSE 80–113; RESP 14–27; TEMP 37.2–38.8; O2SAT 94–100; BMI 42.1; BMI 41.7
--- NOTE | 2019-01-10 04:50 | EKG12_ITS ---
Test Reason : CP Blood Pressure : / mmHG Vent. Rate : 113 BPM Atrial Rate : 113 BPM P-R Int : 126 ms QRS Dur : 070 ms QT Int : 332 ms P-R-T Axes : 029 050 032 degrees QTc Int : 455 ms Sinus tachycardia Otherwise normal ECG Confirmed by XAVIER PAULSON ([id number]), editor & co founder WILBUR FARRAR ([id number]) on 01/10/2019 2:15:01 PM Referred By: Vandana Sams Confirmed By:XAVIER PAULSON
--- NOTE | 2019-01-10 04:50 | RAD_ITS ---
STUDY: X-RAY CHEST REASON FOR EXAM: Female, 38 years old. Left lower leg redness, left heel ulcer, chest pain, shortness of breath, sinus headache, fever, nausea, chills. TECHNIQUE: Single AP portable view of the chest. COMPARISON: 11/28/2018. CT chest 10/23/2018. FINDINGS: Amorphous calcification projecting over the right upper thorax medial to the chest wall consistent with posterior subcutaneous thoracic calcification seen on CT. The lungs are clear and expanded. There is no demonstrated pleural abnormality. Normal size heart. Normal mediastinum and cristiano. Normal visualized pulmonary arteries. Normal visualized aortic arch and descending thoracic aorta. Normal visualized thoracic spine. Normal visualized ribs, clavicles, and shoulders. There is no demonstrated abnormality of the visualized soft tissue structures of the upper abdomen. RAD/Chest 1 View (Portable) IMPRESSION: No acute cardiopulmonary disease. No significant interval change. Electronically Signed: Klaudia Hyde MD at 5:45 EDT , Service support ,
--- NOTE | 2019-01-10 04:51 | RAD_ITS ---
STUDY: X-RAY - LEFT FOOT CLINICAL: Female, 38 years old. Left lower leg redness, left heel ulcer, chest pain, shortness of breath, sinus headache, fever, nausea, chills. TECHNIQUE: 4 view(s) of the foot. COMPARISON: 12/13/2018 FINDINGS: There is an enthesophyte involving the posterior superior calcaneus at the site of insertion of the Achilles tendon. Normal visualized subtalar, talonavicular, calcaneocuboid, tarsal and tarsometatarsal articulations. Remote amputation right mid fifth metatarsal. Normal metatarsophalangeal joint of the great toe. Normal tibial and fibular sesamoid bones. Normal interphalangeal joint of the great toe. Normal phalanges of the great toe. Normal second through fifth metatarsophalangeal joints. There is stable flexion at the proximal interphalangeal joints and normal appearance of the phalanges of the lesser toes. Diffuse soft tissue swelling. There is no radiopaque foreign body. Mild plantar soft tissue lucency likely representing a history of ulcer unchanged since prior exam. RAD/Foot min 3 Views IMPRESSION: No sign of osteomyelitis. Postsurgical changes, degenerative changes and edema appear stable. Electronically Signed: Klaudia Hyde MD at 5:44 EDT , Service support ,
--- NOTE | 2019-01-10 04:55 | ED.VIS.GEN ---
History of Present Illness Chief Complaint: Cellulitis Informant: Patient Onset: Today Narrative: Comes in after waking increased redness left lower leg with a temp of 100.6. Has a diabetic left heel ulcer is being followed by wound care. No current antibiotics. Admitted 3 to 4 weeks ago for cellulitis of her leg. No medications taken prior to arrival. In addition reports productive cough for the past 3 days. Also has a suprapubic cath due to spinal bifida, stating cloudy urine since yesterday. Nausea without vomiting. States has pains all over. 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 Past Medical History - Allergies and Home Meds Allergies/Adverse Reactions: Allergies mushroom Allergy (Verified 01/10/19 04:35) Anaphylaxis peanut Allergy (Verified 01/10/19 04:35) Anaphylaxis Gadolinium-MRI Contrast Medium Adverse Reaction (Verified 01/10/19 04:35) Vomiting Surgical History: cholecystectomy, - - D&C, lumbar back surgery x2, foot surgery x2, abdominal stoma, ventral hernia repair. Smoking Status: Never smoker - Family History Maternal Family History: Family History (Last Reviewed 12/13/18 @ 21:16 by Gen Butt MD) Mother CVA (cerebral vascular accident) Thyroid disorder Diabetes Hypertension Family History: Reports: Cancer, Diabetes, Hypertension, Stroke Paternal Family History: Family History (Last Reviewed 12/13/18 @ 21:16 by Gen Butt MD) Mother CVA (cerebral vascular accident) Thyroid disorder Diabetes Hypertension Family History: Reports: No pertinent history Sibling Family History: Family History (Last Reviewed 12/13/18 @ 21:16 by Gen Butt MD) Mother CVA (cerebral vascular accident) Thyroid disorder Diabetes Hypertension Family History: Reports: No pertinent history Review of Systems All systems negative except as indicated General: Reports: Fever. Denies: Chills, Sweats Eyes: Denies: Visual changes - bilaterally, Diplopia ENT: Denies: Rhinorrhea, Sore throat Cardiovascular: Denies: Chest pain, Palpitations Respiratory: Reports: Cough, Sputum. Denies: Dyspnea, Dyspnea on exertion Gastrointestinal: Reports: Nausea. Denies: Abdominal pain, Vomiting, Diarrhea, Melena, Hematochezia Genitourinary: Denies: Dysuria, Hematuria, Frequency Musculoskeletal: Denies: Back pain, Extremity Pain Skin: Reports: Wounds, - - cellulitis. Denies: Rash Neurological: Denies: Headache, Weakness, Numbness Physical Exam Vital Signs/Narrative: Vital Signs Temp Pulse Resp BP Pulse Ox 01/10/19 04:35 102 F H 113 H 24 H 132/72 H 97 Inital Vital Signs reviewed: Yes General: Well nourished, Well developed, Obese, No Acute Distress Head: Normocephalic, Atraumatic Eyes: Perrl, EOMI ENT: Moist mucous membranes, No rhinorrhea Neck: Supple, Nontender Cardiovascular: Regular rate, Regular rhythm, No murmurs, Tachycardia Respiratory: No distress, CTA bilaterally, Chest nontender Abdomen: Soft, Nontender, Nondistended, Normal bowel sounds : - - Suprapubic cath with cloudy urine Back: Nontender, Normal Inspection Extremities: Nontender, Edema Skin: Normal color, - - Erythema distal half left lower leg. Left heel ulceration with dried drainage on dressing. No active drainage. Neurological: Alert, Oriented x3, Cranial nerves II-XII grossly intact, Normal Strength, Normal Sensation Psychological: Normal affect, Normal Mood Diagnostic/Tx/Re-eval Chest X-Ray - ED: 1 View, Read by ED Physician, No Acute Disease Abnormal Lab Results 01/10/19 01/10/19 01/10/19 04:50 04:50 04:50 WBC 23.6 H RBC 4.52 Hgb 13.3 Hct 39.9 MCV 88.3 MCH 29.4 MCHC 33.3 RDW Std Deviation 45.1 H RDW Coeff of Claude 14.0 Plt Count 246 MPV 10.7 Immature Gran % (Auto) 1.000 H Neut % (Auto) 90.5 H Lymph % (Auto) 4.[address] [place] % (Auto) 3.3 Eos % (Auto) 0.4 Baso % (Auto) 0.3 Absolute Neuts (auto) 21.4 H Absolute Lymphs (auto) 1.07 Nucleated RBC % 0 PT 12.5 INR 1.0 APTT 31.7 Sodium 134 L Potassium 4.2 Chloride 102 Carbon Dioxide 21.0 Anion Gap 11 BUN 11 Creatinine 1.44 H Estim Creat Clear Calc 42.31 Est GFR (MDRD) Af Amer 53 L Est GFR (MDRD) Non-Af 44 L BUN/Creatinine Ratio 7.6 L Glucose 339 H Lactic Acid Calcium 9.0 Total Bilirubin 0.40 AST 34 ALT 48 Alkaline Phosphatase 97 Troponin I < 0.015 Total Protein 8.7 H Albumin 3.6 Globulin 5.1 H Albumin/Globulin Ratio 0.7 L 01/10/19 04:50 WBC RBC Hgb Hct MCV MCH MCHC RDW Std Deviation RDW Coeff of Claude Plt Count MPV Immature Gran % (Auto) Neut % (Auto) Lymph % (Auto) [place] % (Auto) Eos % (Auto) Baso % (Auto) Absolute Neuts (auto) Absolute Lymphs (auto) Nucleated RBC % PT INR APTT Sodium Potassium Chloride Carbon Dioxide Anion Gap BUN Creatinine Estim Creat Clear Calc Est GFR (MDRD) Af Amer Est GFR (MDRD) Non-Af BUN/Creatinine Ratio Glucose Lactic Acid 3.0 H Calcium Total Bilirubin AST ALT Alkaline Phosphatase Troponin I Total Protein Albumin Globulin Albumin/Globulin Ratio - EKG Initial EKG Interpretation: Sinus Rhythm - Sinus tachycardia rate of 113, no ST changes. - Medical Decision Making Sepsis protocol initiated due to her fever, tachycardia, tachypnea. Multifactorial concerns at this time with her cellulitis cloudy urine and productive cough. She started on Zosyn and vancomycin for broad coverage. She is given a liter of fluids. Labs returned with a white count at 23.6. Chest x-ray reviewed by myself shows no acute process. This time I did speak with hospitalist Dr. Sams for admission. Blood pressure is stable. She is nontoxic. Given Tylenol for her fever. She is accepted to PCU. Returning labs noted creatinine 1.44, lactic acid called in at 3.0. Given 30/kg total bolus of 3.2 L that is ordered. X-ray of the foot reviewed by myself shows no bony involvement. Patient meeting severe sepsis criteria. Urine did return positive for infection. Culture pending. - Critical Care Time Critical care time (excluding procedures): 30-74 minutes, Discussing w/Patient &/or Family/Compliance Technician, Discussing w/Consultants ED Disposition - Plan for ED Patient: Disposition: Acute Care [facility] Diagnosis: Severe sepsis, Cellulitis of left lower extremity, Upper respiratory infection, UTI (urinary tract infection)
[2019-01-10 05:01] LABS: Absolute Lymphocyte Count 1.07 X10^3/uL (0.83-4.51); Absolute Neutrophil Count 21.4 X10^3/uL (2.0-7.7); Basophil# 0.06 X10^3/uL; Basophil% 0.3 % (0-1); Eosinophil# 0.09 X10^3/uL; Eosinophils% 0.4 % (0-5); Hematocrit 39.9 % (37-47); Hemoglobin 13.3 g/dL (12.0-15.0); Lymphocyte # 1.07 X10^3/ul (4.0); Lymphocyte % 4.5 % (19-41); Mean Corp Hgb Conc 33.3 g/dL (32-36); Mean Corpuscular Hgb 29.4 pg (27.0-32.0); Mean Corpuscular Volume 88.3 fL (81-99); Mean Platelet Vol. 10.7 fl (6.2-12.0); Monocyte# 0.79 X10^3/uL; Monocyte% 3.3 % (0-10); NRBC Flagged by Analyzer 0 % (0-5); Neutrophil # 21.35 X10^3/uL (2.7-7.7); Neutrophil % 90.5 % (47-70); POSITIVE DIFFERENTIAL YES; Platelet Count 246 K/mm3 (150-450); RBC Distribution Width SD 45.1 fl (35.1-43.9); Red Blood Count 4.52 M/mm3 (4.2-5.4); White Blood Count 23.6 K/mm3 (4.4-11.0)
[2019-01-10 05:02] LABS: Differential Indicated SCAN CRITERIA MET
[2019-01-10 05:12] LABS: Prothrombin Time (Protime)PT. 12.5 SECONDS (11.7-14.9)
[2019-01-10 05:13] LABS: Partial Thromboplast Time 31.7 Seconds (24.1-36.2)
[2019-01-10] MEDS: Acetaminophen 500 MG Tablet 1000 MG PO (05:15)
[2019-01-10] MEDS: Ondansetron 4 MG/2 ML Vial IV (05:15)
[2019-01-10] MEDS: 0.9% Normal Saline 1,000 ML 999 ML IV ×4 (05:15→08:56)
--- NOTE | 2019-01-10 05:16 | HP.PCM_ITS ---
History of Present Illness Date of Admission: 01/10/19 Chief Complaint: fever, chills, pain and redness of left leg The patient is a 38 year old F with a past medical history as listed. She was admitted through the ED on 01/10/2019 with a complaint of pain and redness of her left lower extremity as well as fever and chills. Symptoms started approximately 2:30 AM on day of admission, about 3 hours prior to admission. Patient states she was awoken from sleep with a fever and the chills and noticed that her left lower extremity was very red and painful. She also assisted nausea and vomiting but denied any palpitations or dizziness. Patient denies any trauma to the left leg but does admit to having a chronic nonhealing ulcer of her left heel for which she is been following podiatry. Patient has been admitted multiple times in the past for sepsis due to left lower extremity cellulitis and nonhealing left foot ulcer as well as suprapubic catheter infection. She has a suprapubic catheter on account of neurogenic bladder from spina bifida. She was recently in a jail for about 2 months and says she received antibiotics whilst there. During review, she also admitted to having chest pain which she said was due to a panic attack as she has had numerous panic attacks in the past and always has such pain with it. On admission in the ED, vitals were temperature 102 Fahrenheit, pulse rate of 104 respiratory rate of 27 with blood pressure of 138/78. Chemistry was significant for creatinine of 1.44 and sodium of 134. CBC showed elevated white cell count of 23.6. She has been admitted to monitor for sepsis due to left lower extremity cellulitis and probable suprapubic catheter infection. 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) Type 2 diabetes mellitus with diabetic polyneuropathy (Chronic) Lower extremity edema (Chronic) Ulcer of left heel and midfoot with fat layer exposed (Chronic) Diabetes mellitus with neuropathy (Chronic) Edema of left lower extremity (Chronic) Constipation (Chronic) Neurogenic bowel (Chronic) Neurogenic bladder (Chronic) Chronic back pain (Chronic) History of migraine (Chronic) Depression (Chronic) 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 Will follow, no need yet for cysto retros etc. But this may change in future Jan Re-admitted consult dictated Medical History: Medical History (Last Reviewed 12/13/18 @ 21:23 by Gen Butt MD) Neurogenic bowel (Chronic) K59.2 Neurogenic bladder (Chronic) N31.9 Chronic back pain (Chronic) M54.9, G89.29 History of migraine (Chronic) Z86.69 Depression (Chronic) F32.9 Spina bifida aperta of lumbar spine (Chronic) Q05.7 s/p surgery x 2 weakness and numbness in legs neurogenic bladder and frequent UTIs Non-compliance (Chronic) Z91.19 Morbid obesity with BMI of 40.0-44.9, adult (Chronic) E66.01, Z68.41 Diabetes mellitus, type II (Chronic) E11.9 not well controlled Hydronephrosis of right kidney (Chronic) N13.30 Consult dictated, For now Treat UTI and make sure pt does self cath. Will follow, no need yet for cysto retros etc. But this may change in future Jan Re-admitted consult dictated UTI (urinary tract infection) (Resolved) N39.0 Allergies mushroom Allergy (Verified 01/10/19 04:35) Anaphylaxis peanut Allergy (Verified 01/10/19 04:35) Anaphylaxis Gadolinium-MRI Contrast Medium Adverse Reaction (Verified 01/10/19 04:35) Vomiting Home Medications: Ambulatory Orders Medication Instructions Recorded metFORMIN (XR) [Glucophage Xr] 1,000 mg PO BID 06/19/16 Atorvastatin Calcium [Lipitor] 10 mg PO QHS 11/07/17 Pseudoephedrine HCl [Sudogest] 30 mg PO Q6H PRN PRN 01/21/18 Polyethylene Glycol 3350 [Miralax] 17 gm PO DAILY PRN PRN 04/13/18 Liraglutide [Victoza] 1.2 mg SQ DAILY 07/03/18 Furosemide [Lasix] 20 mg PO DAILY@1700 08/28/18 Furosemide [Lasix] 40 mg PO DAILY 08/28/18 Loratadine [Claritin] 10 mg PO DAILY 08/28/18 Propranolol HCl 10 mg PO DAILY 08/28/18 Oxybutynin [Ditropan] 15 mg PO DAILY 10/23/18 Phenazopyridine HCl [Pyridium] 200 mg PO Q8H PRN PRN #14 tab 12/08/18 Surgical History: Surgical History (Last Reviewed 12/13/18 @ 21:23 by Gen Butt MD) History of cholecystectomy Z90.49 History of dilation and curettage Z98.890 History of spinal surgery Z98.890 Hx of foot surgery Z98.890 Hx of ventral hernia repair Z98.890, Z87.19 Status post gastric surgery Z98.890 Surgical History: cholecystectomy, - - D&C, lumbar back surgery x2, foot surgery x2, abdominal stoma, ventral hernia repair. 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 Lives: With Family Smoking Status: Never smoker Alcohol: None Drugs: None - *Family History Maternal Family History: Family History (Last Reviewed 12/13/18 @ 21:16 by Gen Butt MD) Mother CVA (cerebral vascular accident) Thyroid disorder Diabetes Hypertension History Items: Cancer, Diabetes, Hypertension, Stroke Paternal Family History: Family History (Last Reviewed 12/13/18 @ 21:16 by Gen Butt MD) Mother CVA (cerebral vascular accident) Thyroid disorder Diabetes Hypertension History Items: No pertinent history Sibling Family History: Family History (Last Reviewed 12/13/18 @ 21:16 by Gen Butt MD) Mother CVA (cerebral vascular accident) Thyroid disorder Diabetes Hypertension History Items: No pertinent history Review of Systems Constitutional: Reports: Chills, Fever, Night Sweats, Malaise, Weakness. Denies: Anorexia, Fatigue Eyes: Denies: Blurred vision HEENT: Denies: Head Aches, Sinus Congestion, Sinus Drainage Cardiovascular: Reports: Chest Pain, Palpitations. Denies: Chest Pressure, Chest Tightness, Edema, Heaviness, Light Headedness, Orthopnea, Syncope Respiratory: Denies: Cough, Shortness of Breath, Shortness of breath at rest, Shortness of breath upon exertion, Sputum production Gastrointestinal: Denies: Abdominal Pain, Nausea, Vomiting Genitourinary: Denies: Dysuria Musculoskeletal: Reports: Leg Pain - LLE pain. Denies: Joint Pain, Joint Tenderness Skin: Reports: Wounds - chronic ulcer of left heel Neurological: Denies: Numbness, Tingling, Focal weakness Psychiatric: Reports: Anxiety Hematologic/ Lymphatic: Denies: Easy Bruising, Easy Bleeding VTE Information - Inpt Only VTE Present on Admission: No VTE Pharm Prophylaxis ordered?: Yes - Physical Exam General: Alert, Oriented x3, Cooperative, - - very anxious HEENT: Atraumatic, PERRLA, EOMI, Normocephalic Oral: Moist Mucosa Neck: Supple, No JVD, Negative Carotid Bruits Lungs: Clear to auscultation, Normal air movement, No rhonchi, No wheeze Cardiovascular: Regular Rhythm, Normal S1, Normal S2, Tachycardic Abdomen: Bowel Sounds Present, Soft, Non-Distended, - - suprapubic catheter in place, Mild tenderness around site of suprapubic catheter Extremities: No clubbing, No cyanosis, - - moderate LLE tenderness Skin: - - diffuse circumferential redness of LLE, from just above ankle to mid mcdonald. Chronic ulcer of left heel, ~ 3x1cm with some slough in floor Musculoskeletal: No Tenderness to Palpation of Joints or Extremities Lymphatic: No Cervical, Supraclavicular, or Inguinal Adenopathy Neurological: Cranial nerves II-XII grossly intact, Neuro grossly intact, Motor Exam 5/5 strength throughout Psych/Mental Status: Agitated, Anxious, Alert and oriented to time, place, person, mood and affect Vital Signs Temp Pulse Resp BP Pulse Ox 102 F H 113 H 24 H 132/72 H 97 01/10/19 04:35 01/10/19 04:35 01/10/19 04:35 01/10/19 04:35 01/10/19 04:35 Oxygen Delivery Method Room Air Weight: 230 lb 9.656 oz Body Mass Index (BMI) 42.1 Finger Stick Blood Glucose 187 Laboratory Tests Past 24 Hrs 01/10/19 01/10/19 01/10/19 04:50 04:50 04:50 WBC 23.6 H RBC 4.52 Hgb 13.3 Hct 39.9 MCV 88.3 MCH 29.4 MCHC 33.3 RDW Std Deviation 45.1 H RDW Coeff of Claude 14.0 Plt Count 246 MPV 10.7 Immature Gran % (Auto) 1.000 H Neut % (Auto) 90.5 H Lymph % (Auto) 4.5 L [place] % (Auto) 3.3 Eos % (Auto) 0.4 Baso % (Auto) 0.3 Absolute Neuts (auto) 21.4 H Absolute Lymphs (auto) 1.07 Nucleated RBC % 0 PT 12.5 INR 1.0 APTT 31.7 Sodium Pending Potassium Pending Chloride Pending Carbon Dioxide Pending Anion Gap Pending BUN Pending Creatinine Pending Est GFR (MDRD) Af Amer Pending Est GFR (MDRD) Non-Af Pending BUN/Creatinine Ratio Pending Glucose Pending Lactic Acid Calcium Pending Total Bilirubin Pending AST Pending ALT Pending Alkaline Phosphatase Pending Troponin I Pending Total Protein Pending Albumin Pending 01/10/19 04:50 WBC RBC Hgb Hct MCV MCH MCHC RDW Std Deviation RDW Coeff of Claude Plt Count MPV Immature Gran % (Auto) Neut % (Auto) Lymph % (Auto) [place] % (Auto) Eos % (Auto) Baso % (Auto) Absolute Neuts (auto) Absolute Lymphs (auto) Nucleated RBC % PT INR APTT Sodium Potassium Chloride Carbon Dioxide Anion Gap BUN Creatinine Est GFR (MDRD) Af Amer Est GFR (MDRD) Non-Af BUN/Creatinine Ratio Glucose Lactic Acid Pending Calcium Total Bilirubin AST ALT Alkaline Phosphatase Troponin I Total Protein Albumin Assessment/Plan All Active Problems (Last Reviewed 12/13/18 @ 21:23 by Gen Butt MD) Severe sepsis (Acute) Cellulitis of left lower extremity (Acute) Upper respiratory infection (Acute) UTI (urinary tract infection) (Acute) Sepsis due to cellulitis (Resolved) Decubitus ulcer of left heel (Acute) Delayed wound healing (Acute) Chest pain (Acute) Cellulitis of left lower extremity (Resolved) Diabetic infection of left foot (Acute) Wound infection (Acute) UTI (urinary tract infection) (Resolved) 38-year-old female admitted with complaint of left lower extremity redness and pain. 1. Sepsis due to cellulitis of LLE and probable suprapubic catheter infection * admit to PCU with telemetry. * SIRS criteria is 4/4 (fever, tachycardia, tachypnea and leucocytosis) * lactic acid elevated at 3. * get blood cultures and wound cultures as well as urine cultures * previous blood cultures dating back to 2016 grew Klebsiella; recent blood cultures during recent admissions have been negative. * start on IV vancomycin and IV zosyn * consult podiatry * hydrate with IV ringer;s lactate per sepsis protocol * foot xray pending. * 2. LLE cellulitis and chronic nonhealing diabetic foot ulcer of LLE * says she has been following up with Dr Faria at the wound center * consult wound care * management as under 1. * consult podiatry * 3.UTI due to SUprapubic catheter infection * says her catheter is due to be changed in a couple of weeks * says she always has suprapubic catheter infection when she is admitted for cellulitis * get UA and urine cultures * Previous urine cultures grew Stenotrophomonas, Strep mitis and Staph epidermidis * on IV zosyn as under 1. * 4. GILBERT: Cr is 1.44.; baseline is 0.9. ALso has history of hydronephrosis of right kidney. Will hydrate and monitor 5. Diabetic mellitus type 2: poorly controlled. On Liraglutide and metformin. WIll hold metformin. ISS. Accucheck ACHS 6. History of spina bifida s/p neurogenic bladder: on oxybutinin for neurogenic bladder. Fall precautions 7. History of migraines: on propranolol 8. Depression and anxiety: stable. DVT prophylaxis: lovenox Code Visit Inpatient E&M: 30586 Init Hosp L3
[2019-01-10 05:19] LABS: ALB/GLOB Ratio 0.7 RATIO (0.9-2.4); AST(SGOT) 34 U/L (15-37); Alanine Aminotransfer ALT/SGPT 48 U/L (13-56); Albumin, Serum 3.6 g/dL (3.2-5.0); Alkaline Phosphatase 97 U/L (45-117); Anion Gap 11 (5-15); BUN 11 mg/dL (7-18); BUN/Creat Ratio 7.6 RATIO (10-20); Chloride 102 mmol/L (98-107); Creatinine, Serum 1.44 mg/dL (0.55-1.02); EST Glomerular Filtration Rate 44 mL/min (>60); Est Glom Filt Rate - Afr Amer 53 mL/min (>60); Estimated Creatinine Clearance 42.31 ml/min; Globulin 5.1 g/dL (2.2-4.2); Glucose 339 mg/dL (74-106); Potassium 4.2 mmol/L (3.5-5.1); Protein, Total 8.7 g/dL (6.4-8.2); Sodium Level 134 mmol/L (136-145)
[2019-01-10 05:40] LABS: Bacteria 0 SEEN /hpf (None Seen); Mucous, Urine 0 SEEN /hpf (<or=2+)
[2019-01-10 05:42] LABS: Color, Urine Yellow (Yellow); Glucose, Dipstick 1000 mg/dl (Normal); Ketone-Dipstick 50 mg/dl (Negative); Leukocyte Esterase-Dipstick 500 /ul (Negative); Nitrite-Dipstick Positive (Negative); Occult Blood-Urine 25 /ul (Negative); Protein-Dipstick 100 mg/dl (Negative); Specific Gravity, Urine 1.005 (1.002-1.030); Urine Bilirubin Dipstick Negative (Negative); Urine Clarity Turbid (Clear); Urine Urobilinogen 1 mg/dl (Normal)
[2019-01-10 05:47] LABS: White Blood Cells 25-50 SEEN /hpf (0-5)
[2019-01-10 05:48] LABS: Amorphous Sediment 2+; Red Blood Cells-Urine 0-5 SEEN /hpf (0-5); Squamous Epithelial Cells - UA 0-5 SEEN /hpf (5-10)
[2019-01-10 08:35] LABS: Bedside Glucose 265 mg/dL (70-110)
[2019-01-10 08:58] LABS: Reflex Lactate? Y
--- NOTE | 2019-01-10 09:23 | NURSING ---
wound photo: left heel
--- NOTE | 2019-01-10 09:24 | MRI_ITS ---
STUDY: MRI LEFT REARFOOT WITHOUT CONTRAST REASON FOR EXAM: Female, 38 years old. Heel ulcer TECHNIQUE: Standardized fat and water weighted pulse sequences were obtained in all 3 orthogonal planes. COMPARISON: None. FINDINGS: Focal skin thickening and edema of the subcutaneous fat of the posterior lateral heel soft tissues suggestive of cellulitis but no loculated fluid collection to suggest abscess. No periostitis, bone destruction, or marrow edema to suggest osteomyelitis. Normal posterior tibialis tendon. Normal flexor digitorum longus tendon. Normal flexor hallucis longus tendon. Normal peroneus longus and brevis tendons. Normal tibialis anterior tendon. Normal extensor hallucis longus tendon. Normal extensor digitorum longus tendons. Normal Achilles tendon and teno-osseous insertion. Normal plantar fascia. Normal plantar calcaneal tubercles. Normal intrinsic muscles of the rearfoot. Normal distal tibiofibular syndesmotic ligamentous complex. Normal lateral ligamentous complex. Normal subtalar ligaments and sinus tarsi. Normal deltoid ligamentous complexes. Normal plantar calcaneonavicular (spring) ligament. Normal tibiotalar articulation. Normal talar dome. Normal subtalar articulations. Normal talonavicular articulation. Normal calcaneocuboid articulation. Normal navicular-cuneiform articulations. MRI/Lower Ext/No Jt/w/o IMPRESSION: Cellulitis of the posterior lateral heel but no abscess or osteomyelitis. Electronically Signed: Severino Rand MD at 11:48 EDT Tel , Service support ,
--- NOTE | 2019-01-10 09:25 | PCM.CONS.GEN ---
Reason for Consult Date of Consultation: 01/10/19 Reason for Consultation: Left heel ulcer and infection History of Present Illness: The patient is a 38 year old female with history of diabetes, morbid obesity, spina bifida, and other medical problems presented to [facility] for redness, swelling and infection left foot/leg. She relates to chronic ulceration to the heel, at least since August. She recently developed signs/symptoms of infection which prompted to her come to ER. She also noted fever and chills. Patient's temp was 102 F on admission, elevated pulse rate and increased respiratory rate, WBC noted to be 23.6. Patient follows at wound center. 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) Type 2 diabetes mellitus with diabetic polyneuropathy (Chronic) Lower extremity edema (Chronic) Ulcer of left heel and midfoot with fat layer exposed (Chronic) Diabetes mellitus with neuropathy (Chronic) Edema of left lower extremity (Chronic) Constipation (Chronic) Neurogenic bowel (Chronic) Neurogenic bladder (Chronic) Chronic back pain (Chronic) History of migraine (Chronic) Depression (Chronic) 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 Will follow, no need yet for cysto retros etc. But this may change in future Jan Re-admitted consult dictated Medical History: Medical History (Last Reviewed 12/13/18 @ 21:23 by Gen Butt MD) Neurogenic bowel (Chronic) K59.2 Neurogenic bladder (Chronic) N31.9 Chronic back pain (Chronic) M54.9, G89.29 History of migraine (Chronic) Z86.69 Depression (Chronic) F32.9 Spina bifida aperta of lumbar spine (Chronic) Q05.7 s/p surgery x 2 weakness and numbness in legs neurogenic bladder and frequent UTIs Non-compliance (Chronic) Z91.19 Morbid obesity with BMI of 40.0-44.9, adult (Chronic) E66.01, Z68.41 Diabetes mellitus, type II (Chronic) E11.9 not well controlled Hydronephrosis of right kidney (Chronic) N13.30 Consult dictated, For now Treat UTI and make sure pt does self cath. Will follow, no need yet for cysto retros etc. But this may change in future 13 Sept Re-admitted consult dictated UTI (urinary tract infection) (Resolved) N39.0 Allergies mushroom Allergy (Verified 01/10/19 04:35) Anaphylaxis peanut Allergy (Verified 01/10/19 04:35) Anaphylaxis Gadolinium-MRI Contrast Medium Adverse Reaction (Verified 01/10/19 04:35) Vomiting Latex, Natural Rubber Adverse Reaction (Verified 01/10/19 08:09) Rash Home Medications: Ambulatory Orders Medication Instructions Recorded metFORMIN (XR) [Glucophage Xr] 1,000 mg PO BID 06/19/16 Atorvastatin Calcium [Lipitor] 10 mg PO QHS 11/07/17 Pseudoephedrine HCl [Sudogest] 30 mg PO Q6H PRN PRN 01/21/18 Polyethylene Glycol 3350 [Miralax] 17 gm PO DAILY PRN PRN 04/13/18 Liraglutide [Victoza] 1.2 mg SQ DAILY 07/03/18 Furosemide [Lasix] 20 mg PO DAILY@1700 08/28/18 Furosemide [Lasix] 40 mg PO DAILY 08/28/18 Loratadine [Claritin] 10 mg PO DAILY 08/28/18 Propranolol HCl 10 mg PO DAILY 08/28/18 Oxybutynin [Ditropan] 15 mg PO DAILY 10/23/18 Phenazopyridine HCl [Pyridium] 200 mg PO Q8H PRN PRN #14 tab 12/08/18 Surgical History: Surgical History (Last Reviewed 12/13/18 @ 21:23 by Gen Butt MD) History of cholecystectomy Z90.49 History of dilation and curettage Z98.890 History of spinal surgery Z98.890 Hx of foot surgery Z98.890 Hx of ventral hernia repair Z98.890, Z87.19 Status post gastric surgery Z98.890 Surgical History: cholecystectomy, - - D&C, lumbar back surgery x2, foot surgery x2, abdominal stoma, ventral hernia repair. 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 Lives: With Family Smoking Status: Never smoker Alcohol: None Drugs: None - *Family History Maternal Family History: Family History (Last Reviewed 12/13/18 @ 21:16 by Gen Butt MD) Mother CVA (cerebral vascular accident) Thyroid disorder Diabetes Hypertension History Items: Cancer, Diabetes, Hypertension, Stroke Paternal Family History: Family History (Last Reviewed 12/13/18 @ 21:16 by Gen Butt MD) Mother CVA (cerebral vascular accident) Thyroid disorder Diabetes Hypertension History Items: No pertinent history Sibling Family History: Family History (Last Reviewed 12/13/18 @ 21:16 by Gen Butt MD) Mother CVA (cerebral vascular accident) Thyroid disorder Diabetes Hypertension History Items: No pertinent history Review of Systems Constitutional: Reports: Chills, Fever Gastrointestinal: Denies: Nausea, Vomiting Musculoskeletal: Denies: Foot Pain Patient Problems: Active and Suspected Problems (Last Reviewed 12/13/18 @ 21:23 by Gen Butt MD) Severe sepsis (Acute) Cellulitis of left lower extremity (Acute) Upper respiratory infection (Acute) UTI (urinary tract infection) (Acute) - Physical Exam General: Alert, Oriented x3, Cooperative, No apparent distress Extremities: Capillary Refill Less than 3 Seconds, - - Left foot with heel ulceration measure 1.3cm x 2.7cm and 0.2-0.3cm in depth, there is some nonviable tissue present to the margins and base, otherwise tissue granular, and ulcer down to subcutaneous tissue layer. There is no probe to bone or tendon, joint or capsule. There is no maloder, no fluctuance, no crepitus. There is cellulitis to the left foot, ankle and leg. There is some pain on palpation to the site. The sensation is diminished consistent with peripheral neuropathy bilateral lower extremity. There is no evidence of acute ischemia bilateral lower extremity. Strength decreased bilateral lower extremity. Vital Signs Temp Pulse Resp BP Pulse Ox 99.0 F 94 14 106/57 L 97 01/10/19 08:01 01/10/19 08:01 01/10/19 08:01 01/10/19 08:01 01/10/19 08:01 Oxygen Delivery Method Room Air Weight: 103.5 kg Body Mass Index (BMI) 41.7 Finger Stick Blood Glucose 187 Laboratory Tests Past 24 Hrs 01/10/19 01/10/19 01/10/19 04:50 04:50 04:50 WBC 23.6 H RBC 4.52 Hgb 13.3 Hct 39.9 MCV 88.3 MCH 29.4 MCHC 33.3 RDW Std Deviation 45.1 H RDW Coeff of Claude 14.0 Plt Count 246 MPV 10.7 Immature Gran % (Auto) 1.000 H Neut % (Auto) 90.5 H Lymph % (Auto) 4.5 L [place] % (Auto) 3.3 Eos % (Auto) 0.4 Baso % (Auto) 0.3 Absolute Neuts (auto) 21.4 H Absolute Lymphs (auto) 1.07 Nucleated RBC % 0 PT 12.5 INR 1.0 APTT 31.7 Sodium 134 L Potassium 4.2 Chloride 102 Carbon Dioxide 21.0 Anion Gap 11 BUN 11 Creatinine 1.44 H Estim Creat Clear Calc 42.31 Est GFR (MDRD) Af Amer 53 L Est GFR (MDRD) Non-Af 44 L BUN/Creatinine Ratio 7.6 L Glucose 339 H Lactic Acid Calcium 9.0 Total Bilirubin 0.40 AST 34 ALT 48 Alkaline Phosphatase 97 Troponin I < 0.015 Total Protein 8.7 H Albumin 3.6 Globulin 5.1 H Albumin/Globulin Ratio 0.7 L Urine Color Urine Clarity Urine pH Ur Specific [place] Urine Protein Urine Glucose (UA) Urine Ketones Urine Occult Blood Urine Nitrite Urine Bilirubin Urine Urobilinogen Ur Leukocyte Esterase Urine RBC Urine WBC Ur Squamous Epith Cells Amorphous Sediment Urine Bacteria Urine Mucus S.aureus Protein A PCR MRSA (PCR) 01/10/19 01/10/19 01/10/19 04:50 05:30 08:45 WBC RBC Hgb Hct MCV MCH MCHC RDW Std Deviation RDW Coeff of Claude Plt Count MPV Immature Gran % (Auto) Neut % (Auto) Lymph % (Auto) [place] % (Auto) Eos % (Auto) Baso % (Auto) Absolute Neuts (auto) Absolute Lymphs (auto) Nucleated RBC % PT INR APTT Sodium Potassium Chloride Carbon Dioxide Anion Gap BUN Creatinine Estim Creat Clear Calc Est GFR (MDRD) Af Amer Est GFR (MDRD) Non-Af BUN/Creatinine Ratio Glucose Lactic Acid 3.0 H Calcium Total Bilirubin AST ALT Alkaline Phosphatase Troponin I Total Protein Albumin Globulin Albumin/Globulin Ratio Urine Color Yellow Urine Clarity Turbid Urine pH 7.0 Ur Specific [place] 1.005 Urine Protein 100 H Urine Glucose (UA) 1000 H Urine Ketones 50 H Urine Occult Blood 25 H Urine Nitrite Positive H Urine Bilirubin Negative Urine Urobilinogen 1 H Ur Leukocyte Esterase 500 H Urine RBC 0-5 SEEN Urine WBC 25-50 SEEN Ur Squamous Epith Cells 0-5 SEEN Amorphous Sediment 2+ Urine Bacteria 0 SEEN Urine Mucus 0 SEEN S.aureus Protein A PCR Pending MRSA (PCR) Pending 01/10/19 09:08 WBC RBC Hgb Hct MCV MCH MCHC RDW Std Deviation RDW Coeff of Claude Plt Count MPV Immature Gran % (Auto) Neut % (Auto) Lymph % (Auto) [place] % (Auto) Eos % (Auto) Baso % (Auto) Absolute Neuts (auto) Absolute Lymphs (auto) Nucleated RBC % PT INR APTT Sodium Potassium Chloride Carbon Dioxide Anion Gap BUN Creatinine Estim Creat Clear Calc Est GFR (MDRD) Af Amer Est GFR (MDRD) Non-Af BUN/Creatinine Ratio Glucose Lactic Acid Pending Calcium Total Bilirubin AST ALT Alkaline Phosphatase Troponin I Total Protein Albumin Globulin Albumin/Globulin Ratio Urine Color Urine Clarity Urine pH Ur Specific [place] Urine Protein Urine Glucose (UA) Urine Ketones Urine Occult Blood Urine Nitrite Urine Bilirubin Urine Urobilinogen Ur Leukocyte Esterase Urine RBC Urine WBC Ur Squamous Epith Cells Amorphous Sediment Urine Bacteria Urine Mucus S.aureus Protein A PCR MRSA (PCR) POC Glucose 01/10/19 07:47 POC Glucose 265 H Assessment/Plan All Active Problems (Last Reviewed 12/13/18 @ 21:23 by Gen Butt MD) Severe sepsis (Acute) Cellulitis of left lower extremity (Acute) Upper respiratory infection (Acute) UTI (urinary tract infection) (Acute) Sepsis due to cellulitis (Resolved) Decubitus ulcer of left heel (Acute) Delayed wound healing (Acute) Chest pain (Acute) Cellulitis of left lower extremity (Resolved) Diabetic infection of left foot (Acute) Wound infection (Acute) UTI (urinary tract infection) (Resolved) Left heel ulceration down to subcutaneous tissue layer Cellulitis left lower extremity Diabetes, peripheral neuropathy Multiple co morbidities Reviewed diagnostic data. Reviewed labs, and xray. Xrays without evidence of osteomyelitis. An MRI was ordered for further evaluation left foot, evaluate for osteomyelitis as well as any other evidence of infection. Continue with broad spectrum antibiotic therapy. A culture has been obtained and sent to microbiology. The wound was debrided using a 15 blade removing nonviable tissue in selective fashion. Wound care: Aquacel Ag with overlying gauze dressing, change daily. Keep ulcer offloaded at all times. LEAS from August 2018 show good arterial flow to feet, there is no evidence of ischemia to the lower extremities clinically. Podiatry will continue to follow, thank you for consult.
--- NOTE | 2019-01-10 09:36 | PCM.RX.CS ---
Consult Pharmacy has been consulted to manage selected antiobiotic: Vancomycin Type of Consult: New start Suspected Infection: Sepsis Prior Doses of Antibiotics Received/Current Regimen: VANCOMYCIN 2G IV X1 IN ER 01/10/19 @ 0553 Labs: Sodium 134 mmol/L (136-145) L 01/10/19 04:50 Potassium 4.2 mmol/L (3.5-5.1) 01/10/19 04:50 Chloride 102 mmol/L (98-107) 01/10/19 04:50 Carbon Dioxide 21.0 mmol/L (21.0-32.0) 01/10/19 04:50 11 (5-15) 01/10/19 04:50 BUN 11 mg/dL (7-18) 01/10/19 04:50 1.44 mg/dL (0.55-1.02) H 01/10/19 04:50 Est GFR (MDRD) Af Amer 53 mL/min (>60) L 01/10/19 04:50 Est GFR (MDRD) Non-Af 44 mL/min (>60) L 01/10/19 04:50 7.6 RATIO (10-20) L 01/10/19 04:50 Glucose 339 mg/dL (74-106) H 01/10/19 04:50 Weight used for dosin.5 kg Goal Trough: 15-20 mcg/mL Pharmacy Plan for Drug Dosing: Plan/Recommendations 1. Vancomycin IV 750 mg Q12H to start 01/10 @ 1600 2. Trough 01/11 @ 17:30 3. Pharmacy Service will continue to monitor and adjust dosing as required.
[2019-01-10 09:42] LABS: Lactic Acid 1.8 mmol/L (0.4-2.0)
[2019-01-10] MEDS: Insulin Lispro 100 UNIT/ML INSULN.PEN SC ×2 (09:52→11:41)
--- NOTE | 2019-01-10 11:16 | PN_ITS ---
Patient Problems: Active and Suspected Problems (Last Reviewed 12/13/18 @ 21:23 by Gen Butt MD) Severe sepsis (Acute) Cellulitis of left lower extremity (Acute) Upper respiratory infection (Acute) UTI (urinary tract infection) (Acute) Subjective: Still with leg and abdominal pain. Vitals/I&O's: Vital Signs Temp Pulse Resp BP Pulse Ox 37.2 C 94 14 106/57 L 97 01/10/19 08:01 01/10/19 08:01 01/10/19 08:01 01/10/19 08:01 01/10/19 08:01 Oxygen Delivery Method Room Air Weight: 103.5 kg Body Mass Index (BMI) 41.7 Finger Stick Blood Glucose 187 General: Alert, No apparent distress HEENT: Atraumatic, Normocephalic Oral: Moist Mucosa, No Gingival or Mucosal Lesions/ Ulcerations Neck: No Nodes, Thyroid Normal Size and Texture Lungs: Clear to auscultation, Normal air movement, No rhonchi, No wheeze Cardiovascular: Regular rate, Regular Rhythm, Normal S1, Normal S2, No murmurs Abdomen: Bowel Sounds Present, Soft, Non Tender, Non-Distended, Obese, - - SPC bandaged--did not remove. Extremities: No Calf Tenderness, Edema, - - reviewed images from wound care. 2cm ulcer on left heel with sloughing of skin. right upper extremity erythema. Skin: - Psych/Mental Status: Normal Affect, Appropriate Laboratory Results 01/10/19 04:50: WBC 23.6 H, RBC 4.52, Hgb 13.3, Hct 39.9, MCV 88.3, MCH 29.4, MCHC 33.3, RDW Std Deviation 45.1 H, RDW Coeff of Claude 14.0, Plt Count 246, MPV 10.7, Immature Gran % (Auto) 1.000 H, Neut % (Auto) 90.5 H, Lymph % (Auto) 4.5 L , [place] % (Auto) 3.3, Eos % (Auto) 0.4, Baso % (Auto) 0.3, Absolute Neuts (auto) 21.4 H, Absolute Lymphs (auto) 1.07, Nucleated RBC % 0 01/10/19 04:50: PT 12.5, INR 1.0, APTT 31.7 01/10/19 04:50: Sodium 134 L, Potassium 4.2, Chloride 102, Carbon Dioxide 21.0, Anion Gap 11, BUN 11, Creatinine 1.44 H, Estim Creat Clear Calc 42.31, Est GFR (MDRD) Af Amer 53 L, Est GFR (MDRD) Non-Af 44 L, BUN/Creatinine Ratio 7.6 L, Glucose 339 H, Calcium 9.0, Total Bilirubin 0.40, AST 34, ALT 48, Alkaline Phosphatase 97, Troponin I < 0.015, Total Protein 8.7 H, Albumin 3.6, Globulin 5.1 H, Albumin/Globulin Ratio 0.7 L 01/10/19 04:50: Lactic Acid 3.0 H 01/10/19 05:30: Urine Color Yellow, Urine Clarity Turbid, Urine pH 7.0, Ur Specific [place] 1.005, Urine Protein 100 H, Urine Glucose (UA) 1000 H, Urine Ketones 50 H, Urine Occult Blood 25 H, Urine Nitrite Positive H, Urine Bilirubin Negative, Urine Urobilinogen 1 H, Ur Leukocyte Esterase 500 H, Urine RBC 0-5 SEEN, Urine WBC 25-50 SEEN, Ur Squamous Epith Cells 0-5 SEEN, Amorphous Sediment 2+, Urine Bacteria 0 SEEN, Urine Mucus 0 SEEN 01/10/19 07:47: POC Glucose 265 H 01/10/19 08:45: S.aureus Protein A PCR Pending, MRSA (PCR) Pending 01/10/19 09:08: Lactic Acid 1.8 Current Medications Acetaminophen (Tylenol) 650 mg PO Q6H PRN PRN PRN Reason: Mild Pain (1-3)/Temp > 100.7 F Atorvastatin Calcium (Lipitor) 10 mg PO QHS [facility] Dextrose (D50w Syringe) 0 gm IV X1 PRN; Protocol PRN Reason: Hypoglycemia Enoxaparin Sodium (Lovenox) 40 mg SC DAILY@1000 [facility] Glucagon () 1 mg IM .X1 PRN PRN Reason: Hypoglycemia Piperacillin Sod/Tazobactam (Sod 3.375 gm/ Sodium Chloride) 50 mls @ 12.5 mls/hr IV Q8 [facility] Vancomycin IV Pharmacy to Dose (1 ea/ Sodium Chloride) 500 mls @ 250 mls/hr IV PRN PRN; Protocol PRN Reason: Rx to Dose Vancomycin HCl 750 mg/ Sodium (Chloride) 265 mls @ 250 mls/hr IV Q12H [facility] Sodium Chloride () 250 mls @ 15 mls/hr IV .[id number] PRN PRN Reason: SALINE FLUSH Insulin Human Lispro (Humalog Kwikpen (Bkc)) 0 unit SC ACHS [facility]; Protocol Last Admin: 01/10/19 09:52 Dose: 6 units Documented by: Loratadine (Claritin) 10 mg PO DAILY [facility] Ondansetron HCl (Zofran) 4 mg IV Q8H PRN PRN PRN Reason: NAUSEA/VOMITING Oxybutynin Chloride (Ditropan) 15 mg PO DAILY [facility] Phenazopyridine HCl (Azo Standard) 190 mg PO Q8H PRN PRN PRN Reason: BLADDER SPASMS Polyethylene Glycol (Miralax) 17 gm PO DAILY PRN PRN PRN Reason: Constipation Pseudoephedrine HCl (Sudafed) 30 mg PO Q6H PRN PRN PRN Reason: CONGESTION Sodium Chloride () 10 - 40 ml IV UD PRN PRN Reason: SALINE FLUSH Medical Necessity - Tobacco Use Smoking Status: Never smoker Assessment/Plan All Active Problems (Last Reviewed 12/13/18 @ 21:23 by Gen Butt MD) Severe sepsis (Acute) Cellulitis of left lower extremity (Acute) Upper respiratory infection (Acute) UTI (urinary tract infection) (Acute) Sepsis due to cellulitis (Resolved) Decubitus ulcer of left heel (Acute) Delayed wound healing (Acute) Chest pain (Acute) Cellulitis of left lower extremity (Resolved) Diabetic infection of left foot (Acute) Wound infection (Acute) UTI (urinary tract infection) (Resolved) 1. Severe sepsis * POA * improving * suspect d/t LLE cellulitis * on vanc and pip/tazo * adjust abx accordingly 2. LLE cellulitis * vanc and pip/tazo 3. Left heel ulcer * chronic * may be nidus on LLE cellulitis * check and MRI 4. abnormal UA * may be colonization given chronic SPC rather than a UTI * SPC changed over * had culture around catheter site given appearance, I'm not sure it actually an infection, or more from poor hygeine. 5. DM2 * uncontrolled * A1c was 9.9 09/03/18 * complicates care. * metformin held due to lactic acidosis * start prandial and basal * continue SSI 6. VTE prophylaxis. Moderate risk. LMWH. Code Visit Procedures: Other Procedure - See Report - non-billable rounding.
[2019-01-10] MEDS: Loratadine 10 MG Tablet PO (11:42)
[2019-01-10] MEDS: Enoxaparin 40 MG/0.4 ML Syringe SC (11:42)
[2019-01-10] MEDS: Oxybutynin 5 MG Tablet 15 MG PO (11:42)
[2019-01-10 11:55] LABS: Bedside Glucose 181 mg/dL (70-110)
[2019-01-10 13:58] LABS: M R Staph aureus DNA By PCR Negative (Negative); Probe Check PASS; Specimen Processing Control PASS; Staph aureus DNA By PCR POSITIVE (Negative)
--- NOTE | 2019-01-10 14:00 | CASEMGMT ---
VERNON BENITEZ assessment: Face to Face with patient for initial transition planning/care coordination assessment. VERNON BENITEZ introduced self and role at [facility], pt voices understanding and consents to assessment at this time. Pt is sitting up in bed in no distress at this time. Pt is A/Ox4 at this time and answers all questions appropriately at this time. Care providers, pharmacy, and demographics verified at this time. Pt is a readmission. Pt was admitted 12/13/18-12/15/18 for Diabetic foot, infection and she states she 'made a deal with my infectious disease ' to send her home on po antibx and if it didn't work then she would have to go back on iv antibx. Pt states that she would like to go to [facility] at discharge of this visit. Pt was provided with a list of local SNF's at this time but states would still like [facility] as a lot of her family/friends work there. Shanda grant at this time, voices understanding. PCP: Vazquez Specialists: Patricia, pod; Bienvenido, pod at wound clinic; Yogi, neuro; Orion, urology at [facility] Preferred Pharmacy: [facility] Insurance: [facility]B/[facility] Prescription Benefit: GENIE Living Will/HPOA: Pt states does not have LW/HPOA and declines info at this time. LNOK: Jay Paiz, ; Kimberley Ordonez, [id number] Living Arrangements: Pt states lives with and step-daughter(every other weekend when school in is session) on main level of home. Pt states her bedroom is right next to bathroom on main floor. Pt does get assistance from for ADL's. Pt states that her works multimedia developer 6a-3p daily and that while he is gone during the day she generally just lays and watches TV all day. Pt states is supposed to be non-weight bearing on the left leg but states that she occasionally does put weight on leg if she needs to get food or empty her supra-pubic catheter when her is not at home. Pt states does not have any current aides but has in the past about 4-5years ago. Pt states is not current with waiver program and states does not have a CM thru [facility] or [facility] at this time. Transportation: Pt states drives and states no transportation concerns at this time. DME/HHC: Pt states has the following DME: cane, walkerx2, w/cx2, shower chair, and pt states gets suprapubic catheter supplies thru urologist at [facility]. Pt states no need for any further DME at this time. Pt states does not have any current aides but has in the past about 4-5years ago. Pt states is not current with waiver program and states does not have a CM thru [facility] or [facility] at this time. Pt has been to [facility] in the past and states had [facility] set up 4-5 years ago. Referral to for possible waiver program and psychosocial concerns, voices understanding. Pt states does not want HHC set up at this time because her house 'looks like cra and I would be embarassed to have anyone come in there.' Pt states that when she was at [facility] the last time, her and father in law didn't do any housekeeping and pt states she is unable to do any at this time. Pt states that she would like to go to [facility] at discharge. Shanda is aware, voices understanding. Pt's blood/wound cultures are pending. Pt is disabled. Pt states does not smoke or drink ETOH. CM to follow for any further discharge planning/needs. Advised pt to ask for CM if any further questions/concerns/needs arise, voices understanding. Pt Goal: [facility] Plan: [facility] SStaten VERNON CM
--- NOTE | 2019-01-10 14:53 | CASEMGMT ---
As per CM, pt would like to go to [facility] at discharge. CM did give pt a list of nursing homes in [facility], pt confirms still wants [facility]. SW called [facility], they do have beds, referral faxed. SW will continue to follow. TOSIN Mattson
[2019-01-10 17:15] LABS: Bedside Glucose 139 mg/dL (70-110)
[2019-01-10] MEDS: Atorvastatin Calcium 10 MG Tablet PO (21:10)
[2019-01-10 21:26] LABS: Bedside Glucose 145 mg/dL (70-110)
[2019-01-11] VITALS (10 sets, daily range): BP systolic 109–119; BP diastolic 67–79; PULSE 67–81; RESP 14–20; TEMP 36.2–37.1; O2SAT 95–98
[2019-01-11 05:42] LABS: Absolute Lymphocyte Count 2.09 X10^3/uL (0.83-4.51); Absolute Neutrophil Count 5.3 X10^3/uL (2.0-7.7); Basophil# 0.04 X10^3/uL; Basophil% 0.5 % (0-1); Eosinophil# 0.23 X10^3/uL; Eosinophils% 2.7 % (0-5); Hematocrit 34.1 % (37-47); Lymphocyte # 2.09 X10^3/ul (4.0); Lymphocyte % 24.5 % (19-41); Mean Corp Hgb Conc 32.3 g/dL (32-36); Mean Corpuscular Hgb 29.3 pg (27.0-32.0); Mean Corpuscular Volume 90.7 fL (81-99); Mean Platelet Vol. 10.6 fl (6.2-12.0); Monocyte# 0.84 X10^3/uL; Monocyte% 9.9 % (0-10); NRBC Flagged by Analyzer 0 % (0-5); Neutrophil # 5.26 X10^3/uL (2.7-7.7); Neutrophil % 61.7 % (47-70); Platelet Count 172 K/mm3 (150-450); RBC Distribution Width CV 14.4 % (11.6-14.6); Red Blood Count 3.76 M/mm3 (4.2-5.4); White Blood Count 8.5 K/mm3 (4.4-11.0)
[2019-01-11 06:07] LABS: Anion Gap 6 (5-15); BUN 7 mg/dL (7-18); BUN/Creat Ratio 7.7 RATIO (10-20); Calcium,Total 8.4 mg/dL (8.5-10.1); Chloride 113 mmol/L (98-107); Creatinine, Serum 0.91 mg/dL (0.55-1.02); EST Glomerular Filtration Rate 74 mL/min (>60); Est Glom Filt Rate - Afr Amer 89 mL/min (>60); Estimated Creatinine Clearance 63.87 ml/min; Glucose 127 mg/dL (74-106); Potassium 4.3 mmol/L (3.5-5.1); Sodium Level 142 mmol/L (136-145)
--- NOTE | 2019-01-11 08:05 | NURSING ---
Blood sugar via lab drawal was 127 this morning.
[2019-01-11] MEDS: Oxybutynin 5 MG Tablet 15 MG PO (10:08)
[2019-01-11] MEDS: Loratadine 10 MG Tablet PO (10:08)
[2019-01-11] MEDS: Enoxaparin 40 MG/0.4 ML Syringe SC (10:10)
[2019-01-11] MEDS: Insulin Lispro 100 UNIT/ML INSULN.PEN SC ×6 (10:10→22:13)
--- NOTE | 2019-01-11 10:15 | CASEMGMT ---
Pt was accepted at [facility]. TOSIN Mattson
--- NOTE | 2019-01-11 12:48 | PCM.PROGNOTE ---
Patient Problems: Active and Suspected Problems (Last Reviewed 12/13/18 @ 21:23 by Gen Butt MD) Severe sepsis (Acute) Cellulitis of left lower extremity (Acute) Upper respiratory infection (Acute) UTI (urinary tract infection) (Acute) Subjective: Patient was seen today for follow up on left heel. She is resting in bed, no new complaints. Had MRI. She has no complaints of fever, chills, nausea or vomiting at this time. - Physical Exam General: Alert, Oriented x3, Cooperative, No apparent distress Extremities: Capillary Refill Less than 3 Seconds, Peripheral Pulses Normal, - - Left foot with heel ulceration stable, has granular tissue, down to subcutaneous tissue layer, there is no probe to bone or tendon, joint or capsule. There is no maloder, no fluctuance, no crepitus. There is cellulitis to the left foot, ankle and leg but much improved. There is some pain on palpation to the site. The sensation is diminished consistent with peripheral neuropathy bilateral lower extremity. There is no evidence of acute ischemia bilateral lower extremity. Psych/Mental Status: Alert and oriented to time, place, person, mood and affect Vital Signs Temp Pulse Resp BP Pulse Ox 97.2 F L 79 16 119/71 98 01/11/19 10:01 01/11/19 11:06 01/11/19 10:01 01/11/19 10:01 01/11/19 10:01 Oxygen Delivery Method Room Air Weight: 103.5 kg Body Mass Index (BMI) 41.7 Finger Stick Blood Glucose 187 Intake and Output for Last 24 Hours 01/09/19 01/10/19 01/11/19 23:59 23:59 23:59 Intake Total 5057.6 / 5057.6 261 / 261 Output Total 3600 / 3600 800 / 800 Balance 1457.6 / 1457.6 -539 / -539 Microbiology Past 72 Hours 01/10/19 08:30 Gram Stain - Final Wound - Abdominal Wound Culture - Preliminary Staphylococcus aureus Staphylococcus species 01/10/19 08:45 Gram Stain - Final Wound - Heel, Left Wound Culture - Preliminary Staphylococcus aureus Gram positive organism 01/10/19 05:30 Urine Culture - Preliminary Urine Catheter - Catheter Gram negative sue Laboratory Tests Past 24 Hrs 01/10/19 01/11/19 01/11/19 08:45 05:20 05:20 WBC 8.5 RBC 3.76 L Hgb 11.0 L Hct 34.1 L MCV 90.7 MCH 29.3 MCHC 32.3 RDW Std Deviation 48.0 H RDW Coeff of Claude 14.4 Plt Count 172 MPV 10.6 Immature Gran % (Auto) 0.700 Neut % (Auto) 61.7 Lymph % (Auto) 24.5 [place] % (Auto) 9.9 Eos % (Auto) 2.7 Baso % (Auto) 0.5 Absolute Neuts (auto) 5.3 Absolute Lymphs (auto) 2.09 Nucleated RBC % 0 Sodium 142 Potassium 4.3 Chloride 113 H Carbon Dioxide 23.0 Anion Gap 6 BUN 7 Creatinine 0.91 Estim Creat Clear Calc 63.87 Est GFR (MDRD) Af Amer 89 Est GFR (MDRD) Non-Af 74 BUN/Creatinine Ratio 7.7 L Glucose 127 H Calcium 8.4 L S.aureus Protein A PCR POSITIVE H MRSA (PCR) Negative POC Glucose 01/10/19 01/10/19 21:07 17:07 POC Glucose 145 H 139 H Medical Necessity - Tobacco Use Smoking Status: Never smoker Assessment/Plan All Active Problems (Last Reviewed 12/13/18 @ 21:23 by Gen Butt MD) Severe sepsis (Acute) Cellulitis of left lower extremity (Acute) Upper respiratory infection (Acute) UTI (urinary tract infection) (Acute) Sepsis due to cellulitis (Resolved) Decubitus ulcer of left heel (Acute) Delayed wound healing (Acute) Chest pain (Acute) Cellulitis of left lower extremity (Resolved) Diabetic infection of left foot (Acute) Wound infection (Acute) UTI (urinary tract infection) (Resolved) Left heel ulceration down to subcutaneous tissue layer Cellulitis left lower extremity Diabetes, peripheral neuropathy Multiple co morbidities Reviewed diagnostic data. Reviewed labs, and xray. Xrays without evidence of osteomyelitis. Reviewed left foot MRI - no evidence of osteomyelitis or deep abscess. Continue to treat ulcer and cellulitis. Cellulitis is resolving and much improved today. Continue with broad spectrum antibiotic therapy. A culture has been obtained and sent to microbiology - growing staph - final pending. Left heel wound care: Aquacel Ag with overlying gauze dressing, change daily. Keep ulcer offloaded at all times. Continue with offloading foam heel boot. No weightbearing left heel. LEAS from August 2018 show good arterial flow to feet, there is no evidence of ischemia to the lower extremities clinically. Podiatry will continue to follow.
--- NOTE | 2019-01-11 12:50 | CASEMGMT ---
Message left for Martina Villegas, Dr. Shukla's CM, on her secure voicemail to see if she will follow pt from this point forward. Advised Martina to call this RN CM back for any further questions/concerns/needs. Deanna JUNIOR CM
--- NOTE | 2019-01-11 13:53 | PN_ITS ---
Patient Problems: Active and Suspected Problems (Last Reviewed 12/13/18 @ 21:23 by Gen Butt MD) Severe sepsis (Acute) Cellulitis of left lower extremity (Acute) Upper respiratory infection (Acute) UTI (urinary tract infection) (Acute) Subjective: still with pain in LLE. Objective: nursing reports fecal material expressed from around SPC site. pt told them that this chronic. Vitals/I&O's: Vital Signs Temp Pulse Resp BP Pulse Ox 36.2 C L 79 16 119/71 98 01/11/19 10:01 01/11/19 11:06 01/11/19 10:01 01/11/19 10:01 01/11/19 10:01 Oxygen Delivery Method Room Air Weight: 103.5 kg Body Mass Index (BMI) 41.7 Finger Stick Blood Glucose 187 Intake and Output for Last 24 Hours 01/09/19 01/10/19 01/11/19 23:59 23:59 23:59 Intake Total 5057.6 / 5057.6 381 / 381 Output Total 3600 / 3600 1250 / 1250 Balance 1457.6 / 1457.6 -869 / -869 General: Alert, No apparent distress, - - up in bed. afebrile. HEENT: Atraumatic, Normocephalic Oral: Moist Mucosa, No Gingival or Mucosal Lesions/ Ulcerations Neck: No Nodes, Thyroid Normal Size and Texture Lungs: Clear to auscultation, Normal air movement, No rhonchi, No wheeze Cardiovascular: Regular rate, Regular Rhythm, Normal S1, Normal S2, No murmurs Abdomen: Bowel Sounds Present, Soft, Non Tender, Non-Distended Extremities: - - left leg wrapped--did not remove Skin: - - decreased erythema of LLE. Psych/Mental Status: Normal Affect, Appropriate Microbiology Past 72 Hours 01/10/19 08:30 Wound - Abdominal Gram Stain - Final 01/10/19 08:30 Wound - Abdominal Wound Culture - Preliminary Staphylococcus aureus Staphylococcus species 01/10/19 08:45 Wound - Heel, Left Gram Stain - Final 01/10/19 08:45 Wound - Heel, Left Wound Culture - Preliminary Staphylococcus aureus Gram positive organism 01/10/19 05:30 Urine Catheter - Catheter Urine Culture - Preliminary Gram negative sue Laboratory Results 01/10/19 08:45: S.aureus Protein A PCR POSITIVE H, MRSA (PCR) Negative 01/10/19 17:07: POC Glucose 139 H 01/10/19 21:07: POC Glucose 145 H 01/11/19 05:20: WBC 8.5, RBC 3.76 L, Hgb 11.0 L, Hct 34.1 L, MCV 90.7, MCH 29.3, MCHC 32.3, RDW Std Deviation 48.0 H, RDW Coeff of Claude 14.4, Plt Count 172, MPV 10.6, Immature Gran % (Auto) 0.700, Neut % (Auto) 61.7, Lymph % (Auto) 24.5, [place] % (Auto) 9.9, Eos % (Auto) 2.7, Baso % (Auto) 0.5, Absolute Neuts (auto) 5.3, Absolute Lymphs (auto) 2.09, Nucleated RBC % 0 01/11/19 05:20: Sodium 142, Potassium 4.3, Chloride 113 H, Carbon Dioxide 23.0, Anion Gap 6, BUN 7, Creatinine 0.91, Estim Creat Clear Calc 63.87, Est GFR (MDRD) Af Amer 89, Est GFR (MDRD) Non-Af 74, BUN/Creatinine Ratio 7.7 L, Glucose 127 H, Calcium 8.4 L Current Medications Acetaminophen (Tylenol) 650 mg PO Q6H PRN PRN PRN Reason: Mild Pain (1-3)/Temp > 100.7 F Atorvastatin Calcium (Lipitor) 10 mg PO QHS [facility] Last Admin: 01/10/19 21:10 Dose: 10 mg Documented by: Dextrose (D50w Syringe) 0 gm IV X1 PRN; Protocol PRN Reason: Hypoglycemia Enoxaparin Sodium (Lovenox) 40 mg SC DAILY@1000 [facility] Last Admin: 01/11/19 10:10 Dose: 40 mg Documented by: Glucagon () 1 mg IM .X1 PRN PRN Reason: Hypoglycemia Piperacillin Sod/Tazobactam (Sod 3.375 gm/ Sodium Chloride) 50 mls @ 12.5 mls/hr IV Q8 [facility] Last Admin: 01/11/19 07:12 Dose: 12.5 mls/hr Documented by: Vancomycin IV Pharmacy to Dose (1 ea/ Sodium Chloride) 500 mls @ 250 mls/hr IV PRN PRN; Protocol PRN Reason: Rx to Dose Vancomycin HCl 750 mg/ Sodium (Chloride) 265 mls @ 250 mls/hr IV Q12H [facility] Last Admin: 01/11/19 05:57 Dose: 250 mls/hr Documented by: Sodium Chloride () 250 mls @ 15 mls/hr IV .[id number] PRN PRN Reason: SALINE FLUSH Insulin Human Lispro (Humalog Kwikpen (Bkc)) 0 unit SC ACHS [facility]; Protocol Last Admin: 01/11/19 08:05 Dose: Not Given Documented by: Insulin Human Lispro (Humalog Kwikpen (Bkc)) 3 unit SC TIDAC [facility] Last Admin: 01/11/19 10:10 Dose: 3 units Documented by: Loratadine (Claritin) 10 mg PO DAILY [facility] Last Admin: 01/11/19 10:08 Dose: 10 mg Documented by: Ondansetron HCl (Zofran) 4 mg IV Q8H PRN PRN PRN Reason: NAUSEA/VOMITING Oxybutynin Chloride (Ditropan) 15 mg PO DAILY [facility] Last Admin: 01/11/19 10:08 Dose: 15 mg Documented by: Phenazopyridine HCl (Azo Standard) 190 mg PO Q8H PRN PRN PRN Reason: BLADDER SPASMS Polyethylene Glycol (Miralax) 17 gm PO DAILY PRN PRN PRN Reason: Constipation Pseudoephedrine HCl (Sudafed) 30 mg PO Q6H PRN PRN PRN Reason: CONGESTION Sodium Chloride () 10 - 40 ml IV UD PRN PRN Reason: SALINE FLUSH Medical Necessity - Tobacco Use Smoking Status: Never smoker Assessment/Plan All Active Problems (Last Reviewed 12/13/18 @ 21:23 by Gen Butt MD) Severe sepsis (Acute) Cellulitis of left lower extremity (Acute) Upper respiratory infection (Acute) UTI (urinary tract infection) (Acute) Sepsis due to cellulitis (Resolved) Decubitus ulcer of left heel (Acute) Delayed wound healing (Acute) Chest pain (Acute) Cellulitis of left lower extremity (Resolved) Diabetic infection of left foot (Acute) Wound infection (Acute) UTI (urinary tract infection) (Resolved) 1. Severe sepsis * POA * improving * suspect d/t LLE cellulitis * on vanc and pip/tazo * adjust abx accordingly * follow up cultures: GNR in urine. Staph aureus in would cultures. Follow up further ID and sensitivities. 2. LLE cellulitis * vanc and pip/tazo 3. Left heel ulcer * chronic * may be nidus on LLE cellulitis * check and MRI 4. abnormal UA * may be colonization given chronic SPC rather than a UTI * SPC changed over * had culture around catheter site given appearance, I'm not sure it actually an infection, or more from poor hygeine. * reported fecal material around SPC site. previous CTs (11/23, 12/13) showed no fistula. Will repeat with IV and PO contrast. 5. DM2 * uncontrolled, but improved * A1c was 9.9 09/03/18 * complicates care. * metformin held due to lactic acidosis * start prandial and basal * continue SSI 6. VTE prophylaxis. Moderate risk. LMWH. Code Visit Inpatient E&M: 22138 Subs Hosp L2
--- NOTE | 2019-01-11 14:00 | CT_ITS ---
STUDY: CT ABDOMEN AND PELVIS WITH CONTRAST REASON FOR EXAM: Female, 38 years old. Sepsis fistula RADIATION DOSAGE (If Supplied By Facility): CTDIvol = ( 20.85 ) mGy, DLP = ( 2135.96 ) mGycm TECHNIQUE: CT images were obtained from the dome of the diaphragm to the symphysis pubis without oral contrast. 100mL IV/Oral Isovue 300 was administered. Sagittal and coronal images were reconstructed. Individualized dose optimization techniques were used for this CT. COMPARISON: 13 December 2018, 13 April 2018 FINDINGS: Please note this is not a dedicated study for evaluation of potential gastrointestinal fistula. A fistula is not likely to be detected on a standard examination. Lung bases are clear. Inferior mediastinal structures are normal. There is no intraabdominal inflammatory change, free fluid or fluid collections. Liver, spleen, adrenals and pancreas are normal. Gallbladder is surgically removed. There is no biliary dilation. There is ventral hernia repair without recurrence. There is a small umbilical fat hernia that is externalized to the mesh. There is no intestinal obstruction. However, the sigmoid and rectum contain massive amounts of dehydrated/inspissated stool, and appearance commonly seen with delayed colonic transit/rectal impaction. Suprapubic catheter is in place in the expected position. The bladder/neobladder is collapsed around the catheter and cannot be evaluated. There is no perivesical fluid collection. There is mild expected inflammatory change in the subcutaneous compartment surrounding the suprapubic catheter. There is mild right pelvocaliectasis without obstruction. There is normal symmetric bilateral excretion of contrast into the collecting systems with full descent of contrast through the ureters. However, the right kidney is smaller than the left with multiple parenchymal scars, a finding possibly related to prior infection and/or pediatric reflux. Perirenal space is normal. Lumbar spine is aligned. There are laminectomies of L3, L4, L5 and upper sacrum. Mineralization is normal. Appearance is similar to recent noncontrast exam and remote priors. CT/Abdomen/Pelvis WITH Contrast IMPRESSION: 1. See above discussion regarding technique with respect to clinical question of fistula. Current study is not able to answer that clinical question. 2. No intra-abdominal infection. 3. Expected appearance of suprapubic catheter. 4. Possible fecal impaction/decrease colonic motility. No intestinal obstruction. 5. Right chronic pelvocaliectasis without obstruction, presumably sequela of pediatric reflux and/or prior infection. No active/acute abnormality in the upper urinary tracts. Electronically Signed: Fatimah Dent, at 18:43 EDT Tel , Service support ,
--- NOTE | 2019-01-11 14:02 | CASEMGMT ---
Social Work Note SW in to speak with pt. SW introduced self and role at [facility]. SW is familiar with pt from previous visits. SW introduced self and role at [facility]. SW completed PHQ-9 with pt. Pt scored a 21, denied any current Suicidal thoughts/plans/ideations. SW discussed depression with pt. Pt states that she has had anxiety and depression for years. Pt states that she has been in counseling at [facility] since she was 19 years old. Pt states that she has been trying to get back into [facility] and everytime she calls, [facility] states they will call her back to arrange an appointment and they never do. Pt states that she would like to get back to seeing a counselor and get back on her medications. SW provided pt with list of additional counseling agencies and encouraged pt to follow up with a different agency if [facility] doesn't call her back. While completing PHQ-9 pt states that she has difficulty motivating herself just to do the dishes or making dinner. Pt states it is difficult when she is supposed to be non-weight bearing on her foot but is still expected to do things at home. Pt states that her works during the day, her dad who also lives with her sleeps and watches TV all day. Pt states she has a 13 year old step-daughter that stays every other weekend but states her step-daughter has it in her mind that she doesn't need to help at home either due to her father, pt's , not helping at home either. SW explored with pt the difficulty that she has to deal with when it is expected for her to help at home and take care of the home but also the fact that she needs to be non-weight bearing on her foot and her medical comorbidities. Pt agreed that it is very difficult to be non-weight bearing when she needs to take care of things at home. Pt states that her house is a mess as she is not there to clean it and that it is difficult when she is home to clean it due to her foot. SALUD offered much support to pt. SALUD educated pt on [facility] and the Waiver program and provided pt with information. SW encouraged pt to take information with her when she goes to [facility] and have SW at [facility] assist with getting program arranged if she is agreeable to the program. Pt states understanding, thanked this worker. Pt denied additional needs or concerns at this time. Kati Martinez GENERATION ENGINEERING TECHNOLOGIST, SECURITY COMPLIANCE ENGINEER
[2019-01-11 14:15] LABS: Bedside Glucose 243 mg/dL (70-110)
--- NOTE | 2019-01-11 17:15 | NURSING ---
Saline locked and off the unit via bed to CT
--- NOTE | 2019-01-11 17:51 | CASEMGMT ---
Social Work Social Work spoke to Kelly at [facility] and they are able to accept pt on Monday. [id number] completed and green sheet placed on the chart. Pt aware that [facility] is accepting and she is agreeable. Plan: [facility], can go to SNF on Monday. JUSTIN Pierce
[2019-01-11 18:34] LABS: Vancomycin, Trough Level 11.2 ug/mL (5.0-15.0)
[2019-01-11 18:35] LABS: Bedside Glucose 156 mg/dL (70-110)
--- NOTE | 2019-01-11 20:50 | PCM.RX.CS ---
Consult Pharmacy has been consulted to manage selected antiobiotic: Vancomycin Type of Consult: Follow-up Suspected Infection: Sepsis Prior Doses of Antibiotics Received/Current Regimen: Vancomycin 750mg IV q12h x3 doses Labs: Sodium 142 mmol/L (136-145) 01/11/19 05:20 Potassium 4.3 mmol/L (3.5-5.1) 01/11/19 05:20 Chloride 113 mmol/L (98-107) H 01/11/19 05:20 Carbon Dioxide 23.0 mmol/L (21.0-32.0) 01/11/19 05:20 6 (5-15) 01/11/19 05:20 BUN 7 mg/dL (7-18) 01/11/19 05:20 0.91 mg/dL (0.55-1.02) 01/11/19 05:20 Est GFR (MDRD) Af Amer 89 mL/min (>60) 01/11/19 05:20 Est GFR (MDRD) Non-Af 74 mL/min (>60) 01/11/19 05:20 7.7 RATIO (10-20) L 01/11/19 05:20 Glucose 127 mg/dL (74-106) H 01/11/19 05:20 Vancomycin Trough 11.2 ug/mL (5.0-15.0) 01/11/19 17:50 Microbiology: Microbiology 01/10/19 08:30 Wound - Abdominal Gram Stain - Final 01/10/19 08:30 Wound - Abdominal Wound Culture - Preliminary Staphylococcus aureus Staphylococcus species 01/10/19 08:45 Wound - Heel, Left Gram Stain - Final 01/10/19 08:45 Wound - Heel, Left Wound Culture - Preliminary Staphylococcus aureus Gram positive organism 01/10/19 05:30 Urine Catheter - Catheter Urine Culture - Preliminary Gram negative sue Weight used for dosin kg Estimated Creatinine Clearance: 93ml/min Goal Trough: 15-20 mcg/mL Pharmacy Plan for Drug Dosing: Pt's trough level is 11.2. Ordered trough goal is 15-20. Per pharmacy dosing equation with a low trough result pt is to get approx. 2300mg per day of Vancomycin. Recommend increasing pt to Vancomycin 1250mg IV q12h and checking a trough on 01/13/19 at 1730. Pharmacy Service will continue to monitor and adjust dosing as required. Follow-Up Labs: Trough Vancomycin - 01/13/19 @ [id number]
[2019-01-11] MEDS: Atorvastatin Calcium 10 MG Tablet PO (22:13)
[2019-01-11 22:36] LABS: Bedside Glucose 189 mg/dL (70-110)
[2019-01-12] VITALS (9 sets, daily range): BP systolic 100–136; BP diastolic 61–74; PULSE 50–71; RESP 16–18; TEMP 36.4–36.8; O2SAT 95–98
[2019-01-12 06:47] LABS: Anion Gap 7 (5-15); BUN 11 mg/dL (7-18); BUN/Creat Ratio 11.9 RATIO (10-20); Calcium,Total 8.6 mg/dL (8.5-10.1); Chloride 109 mmol/L (98-107); Creatinine, Serum 0.93 mg/dL (0.55-1.02); EST Glomerular Filtration Rate 72 mL/min (>60); Est Glom Filt Rate - Afr Amer 88 mL/min (>60); Glucose 195 mg/dL (74-106); Potassium 3.7 mmol/L (3.5-5.1); Sodium Level 141 mmol/L (136-145)
--- NOTE | 2019-01-12 08:54 | PN_ITS ---
Patient Problems: Active and Suspected Problems (Last Reviewed 12/13/18 @ 21:23 by Gen Butt MD) Severe sepsis (Acute) Cellulitis of left lower extremity (Acute) Upper respiratory infection (Acute) UTI (urinary tract infection) (Acute) Subjective: Patient was seen this morning for follow up left heel ulcer and cellulitis. She relates she has noticed some improvement. Plan is for patient to eventually go to [facility]. She did not relate to any fever, chills, nausea or vomiting this morning. She was resting in bed. - Physical Exam General: Alert, Oriented x3, Cooperative, No apparent distress Extremities: Capillary Refill Less than 3 Seconds, - - Left foot with heel ulceration is healing, smaller, has granular tissue, down to subcutaneous tissue layer, there is no probe to bone or tendon, joint or capsule. There is no malode r, no fluctuance, no crepitus. Cellulitis to the left foot, ankle and leg is much improved and appears essentially clinically resolved at this time. There is some pain on palpation to the site. The sensation is diminished consistent with peripheral neuropathy lower extremity. There is no evidence of acute ischemia left lower extremity. Vital Signs Temp Pulse Resp BP Pulse Ox 97.7 F L 50 L 16 100/67 96 01/12/19 03:30 01/12/19 07:07 01/12/19 03:30 01/12/19 03:30 01/12/19 07:57 Oxygen Delivery Method Room Air Weight: 103.5 kg Body Mass Index (BMI) 41.7 Finger Stick Blood Glucose 187 Intake and Output for Last 24 Hours 01/10/19 01/11/19 01/12/19 23:59 23:59 23:59 Intake Total 5057.6 / 5057.6 1437 / 1437 250 / 250 Output Total 3600 / 3600 3100 / 3100 600 / 600 Balance 1457.6 / 1457.6 -1663 / -1663 -350 / -350 Microbiology Past 72 Hours 01/10/19 08:45 Gram Stain - Final Wound - Heel, Left Wound Culture - Final Staphylococcus aureus Streptococcus group C Gram positive sue 01/10/19 05:30 Urine Culture - Preliminary Urine Catheter - Catheter Stenotrophomonas maltophilia 01/10/19 08:30 Gram Stain - Final Wound - Abdominal Wound Culture - Preliminary Staphylococcus aureus Staphylococcus species Laboratory Tests Past 24 Hrs 01/11/19 01/12/19 17:50 06:20 Sodium 141 Potassium 3.7 Chloride 109 H Carbon Dioxide 25.0 Anion Gap 7 BUN 11 Creatinine 0.93 Estim Creat Clear Calc 62.50 Est GFR (MDRD) Af Amer 88 Est GFR (MDRD) Non-Af 72 BUN/Creatinine Ratio 11.9 Glucose 195 H Calcium 8.6 Vancomycin Trough 11.2 POC Glucose 01/11/19 01/11/19 01/11/19 22:12 18:11 13:02 POC Glucose 189 H 156 H 243 H Medical Necessity - Tobacco Use Smoking Status: Never smoker Assessment/Plan All Active Problems (Last Reviewed 12/13/18 @ 21:23 by Gen Butt MD) Severe sepsis (Acute) Cellulitis of left lower extremity (Acute) Upper respiratory infection (Acute) UTI (urinary tract infection) (Acute) Sepsis due to cellulitis (Resolved) Decubitus ulcer of left heel (Acute) Delayed wound healing (Acute) Chest pain (Acute) Cellulitis of left lower extremity (Resolved) Diabetic infection of left foot (Acute) Wound infection (Acute) UTI (urinary tract infection) (Resolved) Left heel ulceration down to subcutaneous tissue layer - healing Cellulitis left lower extremity - clinically resolved Diabetes, peripheral neuropathy Multiple co morbidities Reviewed diagnostic data. Reviewed labs, and xray. Xrays without evidence of osteomyelitis. Reviewed left foot MRI - no evidence of osteomyelitis or deep abscess. Continue to treat ulcer and cellulitis. Left foot/ankle/leg cellulitis is much improved and appears essentially clinically resolved at this time. Continue with antibiotic therapy. A culture has been obtained and sent to microbiology - growing staph aureus, strep group C and gram positive sue - final pending. Left heel wound care: Aquacel Ag with overlying gauze dressing, change daily. Keep ulcer offloaded at all times. Continue with offloading foam heel boot. No weightbearing left heel. LEAS from August 2018 show good arterial flow to feet, there is no evidence of ischemia to the lower extremities clinically. Podiatry will continue to follow, will see every 2-3 days while inpatient, patient to resume follow up with Dr. Faria at wound center once she is discharged.
[2019-01-12 08:56] LABS: Bedside Glucose 194 mg/dL (70-110)
[2019-01-12] MEDS: Insulin Lispro 100 UNIT/ML INSULN.PEN SC ×6 (09:04→21:46)
[2019-01-12] MEDS: Loratadine 10 MG Tablet PO (09:08)
[2019-01-12] MEDS: Enoxaparin 40 MG/0.4 ML Syringe SC (09:08)
[2019-01-12] MEDS: Oxybutynin 5 MG Tablet 15 MG PO (09:08)
--- NOTE | 2019-01-12 09:10 | PCM.PN.HOSP ---
Patient Problems: Active and Suspected Problems (Last Reviewed 12/13/18 @ 21:23 by Gen Butt MD) Severe sepsis (Acute) Cellulitis of left lower extremity (Acute) Upper respiratory infection (Acute) UTI (urinary tract infection) (Acute) Subjective: Leg and abdomen feeling better. States that she has been having drainage from her suprapubic catheter site ever since it was placed, which was back in October. Patient states that her surgeon is aware and patient has a follow-up appointment on the 26 of this month. Patient does state that she does get fecal material expressed from her umbilicus. Patient had a Bowles stoma procedure about 3 or 4 years ago performed at [facility] and since then developed a umbilical hernia and did require mesh. Patient has not been unable to utilize a stoma, which she would inject the tube to essentially provide an enema from above to flush out her colon given slow transit of stool. But that she is been unable to do so. Patient has had some stool come from her umbilicus from the stoma. Vitals/I&O's: Vital Signs Temp Pulse Resp BP Pulse Ox 36.5 C L 50 L 16 100/67 96 01/12/19 03:30 01/12/19 07:07 01/12/19 03:30 01/12/19 03:30 01/12/19 07:57 Oxygen Delivery Method Room Air Weight: 103.5 kg Body Mass Index (BMI) 41.7 Finger Stick Blood Glucose 187 Intake and Output for Last 24 Hours 01/10/19 01/11/19 01/12/19 23:59 23:59 23:59 Intake Total 5057.6 / 5057.6 1437 / 1437 250 / 250 Output Total 3600 / 3600 3100 / 3100 600 / 600 Balance 1457.6 / 1457.6 -1663 / -1663 -350 / -350 General: Alert, No apparent distress HEENT: Atraumatic, Normocephalic Oral: Moist Mucosa, No Gingival or Mucosal Lesions/ Ulcerations Abdomen: Soft, Non Tender, Non-Distended, Obese, - - Suprapubic catheter site without surrounding erythema. No material, purulence was able to be expressed from that. Umbilicus was evaluated and no fluid nor of fecal material could be expressed from it. No surrounding erythema. Extremities: No Calf Tenderness, Edema Skin: - - Resolving erythema of the left lower extremity. Musculoskeletal: No Tenderness to Palpation of Joints or Extremities, No Muscle Wasting Psych/Mental Status: Normal Affect, Appropriate Microbiology Past 72 Hours 01/10/19 08:45 Wound - Heel, Left Gram Stain - Final 01/10/19 08:45 Wound - Heel, Left Wound Culture - Final Staphylococcus aureus Streptococcus group C Gram positive sue 01/10/19 05:30 Urine Catheter - Catheter Urine Culture - Preliminary Stenotrophomonas maltophilia 01/10/19 08:30 Wound - Abdominal Gram Stain - Final 01/10/19 08:30 Wound - Abdominal Wound Culture - Preliminary Staphylococcus aureus Staphylococcus species Laboratory Results 01/11/19 13:02: POC Glucose 243 H 01/11/19 17:50: Vancomycin Trough 11.2 01/11/19 18:11: POC Glucose 156 H 01/11/19 22:12: POC Glucose 189 H 01/12/19 06:20: Sodium 141, Potassium 3.7, Chloride 109 H, Carbon Dioxide 25.0, Anion Gap 7, BUN 11, Creatinine 0.93, Estim Creat Clear Calc 62.50, Est GFR (MDRD) Af Amer 88, Est GFR (MDRD) Non-Af 72, BUN/Creatinine Ratio 11.9, Glucose 195 H, Calcium 8.6 01/12/19 08:49: POC Glucose 194 H Current Medications Acetaminophen (Tylenol) 650 mg PO Q6H PRN PRN PRN Reason: Mild Pain (1-3)/Temp > 100.7 F Atorvastatin Calcium (Lipitor) 10 mg PO QHS [facility] Last Admin: 01/11/19 22:13 Dose: 10 mg Documented by: Dextrose (D50w Syringe) 0 gm IV X1 PRN; Protocol PRN Reason: Hypoglycemia Enoxaparin Sodium (Lovenox) 40 mg SC DAILY@1000 [facility] Last Admin: 01/12/19 09:08 Dose: 40 mg Documented by: Glucagon () 1 mg IM .X1 PRN PRN Reason: Hypoglycemia Piperacillin Sod/Tazobactam (Sod 3.375 gm/ Sodium Chloride) 50 mls @ 12.5 mls/hr IV Q8 [facility] Last Admin: 01/12/19 08:11 Dose: 12.5 mls/hr Documented by: Vancomycin IV Pharmacy to Dose (1 ea/ Sodium Chloride) 500 mls @ 250 mls/hr IV PRN PRN; Protocol PRN Reason: Rx to Dose Sodium Chloride () 250 mls @ 15 mls/hr IV .[id number] PRN PRN Reason: SALINE FLUSH Vancomycin HCl 1,250 mg/ (Sodium Chloride) 275 mls @ 167 mls/hr IV Q12H [facility] Last Admin: 01/12/19 05:28 Dose: 167 mls/hr Documented by: Insulin Human Lispro (Humalog Kwikpen (Bkc)) 0 unit SC ACHS [facility]; Protocol Last Admin: 01/12/19 09:04 Dose: 2 units Documented by: Insulin Human Lispro (Humalog Kwikpen (Bkc)) 3 unit SC TIDAC [facility] Last Admin: 01/12/19 09:04 Dose: 3 units Documented by: Loratadine (Claritin) 10 mg PO DAILY [facility] Last Admin: 01/12/19 09:08 Dose: 10 mg Documented by: Ondansetron HCl (Zofran) 4 mg IV Q8H PRN PRN PRN Reason: NAUSEA/VOMITING Oxybutynin Chloride (Ditropan) 15 mg PO DAILY [facility] Last Admin: 01/12/19 09:08 Dose: 15 mg Documented by: Phenazopyridine HCl (Azo Standard) 190 mg PO Q8H PRN PRN PRN Reason: BLADDER SPASMS Polyethylene Glycol (Miralax) 17 gm PO DAILY PRN PRN PRN Reason: Constipation Pseudoephedrine HCl (Sudafed) 30 mg PO Q6H PRN PRN PRN Reason: CONGESTION Sodium Chloride () 10 - 40 ml IV UD PRN PRN Reason: SALINE FLUSH Medical Necessity - Tobacco Use Smoking Status: Never smoker Assessment/Plan All Active Problems (Last Reviewed 12/13/18 @ 21:23 by Gen Butt MD) Severe sepsis (Acute) Cellulitis of left lower extremity (Acute) Upper respiratory infection (Acute) UTI (urinary tract infection) (Acute) Sepsis due to cellulitis (Resolved) Decubitus ulcer of left heel (Acute) Delayed wound healing (Acute) Chest pain (Acute) Cellulitis of left lower extremity (Resolved) Diabetic infection of left foot (Acute) Wound infection (Acute) UTI (urinary tract infection) (Resolved) 1. Severe sepsis POA improving suspect d/t LLE cellulitis on vanc and pip/tazo since 01/10. change to LVQ and cefazolin while in hospital. can change to PO LVQ and cephalexin as outpt. treat through 01/20 adjust abx accordingly 2. LLE cellulitis vanc and pip/tazo Wound culture growing out MSSA, resistant to trimethoprim/sulfamethoxazole and group C strep. Also gram-positive sue was noted 3. Left heel ulcer chronic may be nidus on LLE cellulitis check and MRI 4. possible UTI may be colonization given chronic SPC rather than a UTI SPC changed over Culture growing out stenotrophomonas, sensitivities sensitive to Levaquin and trimethoprim/sulfamethoxazole had culture around catheter site given appearance, I'm not sure it actually an infection, or more from poor hygeine. reported fecal material around SPC site. previous CTs (11/23, 12/13) showed no fistula. Will repeat with IV and PO contrast. Patient has been having material be expressed since the catheter was placed in October of this year. Patient states that her surgeon at [facility] is aware and patient has a follow-up appointment on 21 January. CAT scan performed did not show any obvious fistula. We will hold off any additional studies at this point in time the patient does continue to have ongoing issues may consider doing a small bowel follow-through or a rectal enema to see if there is any visualization of any fistula. 5. DM2 uncontrolled, but improved A1c was 9.9 09/03/18 complicates care. metformin held due to lactic acidosis start prandial and basal continue SSI 6. VTE prophylaxis. Moderate risk. LMWH. 7. Debility: to [facility] on 01/13 Code Visit Inpatient E&M: [id number] Subs Hosp L2
[2019-01-12] MEDS: levoFLOXacin IV 750 MG/150 ML BAG 100 MG IV (10:44)
[2019-01-12 11:36] LABS: Bedside Glucose 257 mg/dL (70-110)
[2019-01-12] MEDS: Cefazolin 1 GM/50 ML BAG IV ×2 (14:55→21:43)
[2019-01-12 17:16] LABS: Bedside Glucose 132 mg/dL (70-110)
[2019-01-12] MEDS: Atorvastatin Calcium 10 MG Tablet PO (21:44)
[2019-01-12 21:56] LABS: Bedside Glucose 209 mg/dL (70-110)
[2019-01-13 02:56] VITALS: BP 115/72; PULSE 62; RESP 18; TEMP 36.6; O2SAT 96
[2019-01-13] MEDS: Cefazolin 1 GM/50 ML BAG IV (06:26)
--- NOTE | 2019-01-13 07:50 | TREXTCAR_ITS ---
- Diet 01/10/19 06:31 Diet: Calorie Controlled Food consistency:: Regular Liquid Consistency:: Regular/Thin How many daily calories?: 1800 calorie - Routine Orders/Code Status O2 Frequency: Continuous Routine Lab Work: BMP - Wound(s) L heel Wound Type: Neuropathic/Diabetic Foot Ulcer Dressing Change: AntiMicrobial (Aquacel AG, etc) - Therapies Weight Bearing: Non weight bearing - off-loading with foam heel boot. Extremity Affected:: Left Lower Physical Therapy: Eval and Treat Occupational Therapy: Eval and Treat - Allergies/Procedures Done in Hospital Allergies/Adverse Reactions: Allergies mushroom Allergy (Verified 01/10/19 04:35) Anaphylaxis peanut Allergy (Verified 01/10/19 04:35) Anaphylaxis Gadolinium-MRI Contrast Medium Adverse Reaction (Verified 01/10/19 04:35) Vomiting Latex, Natural Rubber Adverse Reaction (Verified 01/10/19 08:09) Rash Procedures: None - Type of Care/Length of Stay Estimated LOS: Convalescent Care Less Than 30 days Type of Care Needed: Skilled Rehab Potential: Fair Prognosis: Good - Additional Orders/Day of Discharge Day of Discharge: 01/13/19 - Dietary and Speech Recommendations Dietitian Recommendations/Changes: Recommend continue 1800 calorie controlled diet. Recommend Ty 1 packet BID to promote wound healing - order by pharmacy. - Follow Up Care Primary Care Physician: Will Shukla MD [Primary Care Provider] - Within 2 Weeks Please Follow Up With: Jose Faria DPM When: 1-2 weeks Please Follow Up With: [facility] surgeon When: 01/21/19 (previously scheduled)
--- NOTE | 2019-01-13 07:53 | DS.PCM_ITS ---
Discharge Date and Diagnosis - Problem List Patient Problems: Active and Suspected Problems (Last Reviewed 12/13/18 @ 21:23 by Gen Butt MD) Severe sepsis (Acute) Cellulitis of left lower extremity (Acute) Upper respiratory infection (Acute) UTI (urinary tract infection) (Acute) Date of Admission: 01/10/19 Date of Discharge: 01/13/19 - Primary Discharge Diagnosis Active and Suspected Problems (Last Reviewed 12/13/18 @ 21:23 by Gen Butt MD) 1. Severe sepsis * POA * resolved * d/t LLE cellulitis +/-UTI * on vanc and pip/tazo since 01/10. change to LVQ and cefazolin while in hospital. can change to PO LVQ and cephalexin as outpt. treat through 01/20 * adjust abx accordingly 2. LLE cellulitis * vanc and pip/tazo * Wound culture growing out MSSA, resistant to trimethoprim/sulfamethoxazole and group C strep. Also gram-positive sue was noted 3. Left heel ulcer * chronic * may be nidus on LLE cellulitis * no osteomyelitis nor abscess on MRI * Non-weight bearing LLE * off-loading * follow up with Dr. Faria (podiatry) in 1-2 weeks 4. possible UTI * may be colonization given chronic SPC rather than a UTI * SPC changed over * Culture growing out stenotrophomonas, sensitivities sensitive to Levaquin and trimethoprim/sulfamethoxazole * had culture around catheter site given appearance, I'm not sure it actually an infection, or more from poor hygeine. * reported fecal material around SPC site. previous CTs (11/23, 12/13) showed no fistula. Will repeat with IV and PO contrast. * Patient has been having material be expressed since the catheter was placed in October of this year. Patient states that her surgeon at [facility] is aware and patient has a follow-up appointment on 21 January. * CAT scan performed did not show any obvious fistula. We will hold off any additional studies at this point in time the patient does continue to have ongoing issues may consider doing a small bowel follow-through or a rectal enema to see if there is any visualization of any fistula. 5. DM2 * uncontrolled, but improved * A1c was 9.9 09/03/18 * complicates care. * metformin held due to lactic acidosis. continue to hold metformin and Victoza. * start basal insulin * continue SSI 6. Debility * to [facility] (a SNF) for continued therapy and wound care. 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 (Chronic) Lower extremity edema (Chronic) Ulcer of left heel and midfoot with fat layer exposed (Chronic) Diabetes mellitus with neuropathy (Chronic) Edema of left lower extremity (Chronic) Constipation (Chronic) Neurogenic bowel (Chronic) Neurogenic bladder (Chronic) Chronic back pain (Chronic) History of migraine (Chronic) Depression (Chronic) 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 Will follow, no need yet for cysto retros etc. But this may change in future 13 Sept Re-admitted consult dictated Hospital Course and Treatment Imaging Results: Clinical Impression(s) from Imaging Studies Chest X-Ray 01/10/19 04:50 IMPRESSION: No acute cardiopulmonary disease. No significant interval change. Electronically Signed: Klaudia Hyde MD at 5:45 EDT , Service support , Foot X-Ray 01/10/19 04:51 IMPRESSION: No sign of osteomyelitis. Postsurgical changes, degenerative changes and edema appear stable. Electronically Signed: Klaudia Hyde MD at 5:44 EDT , Service support , Lower Extremity MRI 01/10/19 09:24 IMPRESSION: Cellulitis of the posterior lateral heel but no abscess or osteomyelitis. Electronically Signed: Severino Rand MD at 11:48 EDT Tel , Service support , Abdomen/Pelvis CT 01/11/19 14:00 IMPRESSION: 1. See above discussion regarding technique with respect to clinical question of fistula. Current study is not able to answer that clinical question. 2. No intra-abdominal infection. 3. Expected appearance of suprapubic catheter. 4. Possible fecal impaction/decrease colonic motility. No intestinal obstruction. 5. Right chronic pelvocaliectasis without obstruction, presumably sequela of pediatric reflux and/or prior infection. No active/acute abnormality in the upper urinary tracts. Electronically Signed: Fatimah Germainmartín, at 18:43 EDT Tel , Service support , Consultations 01/10/19 06:31 Consult: Onc/Wound/biofuels production associate Routine Comment: Amish Guo MD: podiatry Operations: None Procedures: None Summary of Care Provided: The patient is a 38 year old F presents fever, chills and left lower extremity erythema. Patient was diagnosed with severe sepsis with a Actiq acid of 3 upon presentation. Given patient's initial presentation, patient was started on vancomycin as well as Zosyn. Patient also had an abnormal urinalysis concerning for urinary tract infection. It should be noted, that patient has a chronic suprapubic catheter that was placed in October and has chronically been having material be expressed from around the catheter site. Urine culture eventually grew out stenotrophomonas which was sensitive to Levaquin and the wound culture from patient's heel which may been the nidus for her left lower extremity cellulitis, grout MSSA, group C strep and another gram-positive sue yet to be i dentified. Patient has antibiotics or de-escalate from Levaquin to cefazolin and upon discharge, will be Levaquin and cephalexin through . Patient was seen in consultation by Dr. porter, podiatry, who had patient get an MRI that showed no osteomyelitis or abscess. Patient is debilitated and has a, according the patient description, a poor support network at home so patient will be going to a [facility] for further rehab and care. [] Patient Problems: Active and Suspected Problems (Last Reviewed 12/13/18 @ 21:23 by Gen abraham MD) Severe sepsis (Acute) Cellulitis of left lower extremity (Acute) Upper respiratory infection (Acute) UTI (urinary tract infection) (Acute) - Physical Exam General: Alert, No apparent distress HEENT: Atraumatic, Normocephalic Abdomen: Soft, Non Tender, - - SPC Extremities: Edema, - - resolving erythema Psych/Mental Status: Normal Affect, Appropriate Vital Signs Temp Pulse Resp BP Pulse Ox 36.6 C 62 18 115/72 96 01/13/19 02:56 01/13/19 02:56 01/13/19 02:56 01/13/19 02:56 01/13/19 02:56 Oxygen Delivery Method Room Air Weight: 103.5 kg Body Mass Index (BMI) 41.7 Finger Stick Blood Glucose 187 Intake and Output for Last 24 Hours 01/11/19 01/12/19 01/13/19 23:59 23:59 23:59 Intake Total 1437 / 1437 1780 / 2020 410 / 410 Output Total 3100 / 3100 2050 / 2950 1200 / 1200 Balance -1663 / -1663 -270 / -930 -790 / -790 Microbiology Past 72 Hours 01/10/19 08:30 Gram Stain - Final Wound - Abdominal Wound Culture - Final Staphylococcus aureus Corynebacterium striatum 01/10/19 05:30 Urine Culture - Preliminary Urine Catheter - Catheter Stenotrophomonas maltophilia Staphylococcus aureus 01/10/19 08:45 Gram Stain - Final Wound - Heel, Left Wound Culture - Final Staphylococcus aureus Streptococcus group C Gram positive sue 01/10/19 05:45 Blood Culture - Preliminary Blood Culture (Wb) - Anticubital Left No growth in 48 hours. 01/10/19 04:50 Blood Culture - Preliminary Blood Culture (Wb) - Anticubital Right No growth in 48 hours. POC Glucose 01/12/19 01/12/19 01/12/19 21:45 17:11 11:22 POC Glucose 209 H 132 H 257 H 01/12/19 08:49 POC Glucose 194 H Discharge Diet: 1800 Calorie Control Diet Discharge Activity: Return to Normal Activity, No Restrictions Home Medications: Medications to take at Discharge Atorvastatin Calcium [Lipitor] 10 mg PO QHS 11/07/17 Pseudoephedrine HCl [Sudogest] 30 mg PO Q6H PRN PRN 01/21/18 Polyethylene Glycol 3350 [Miralax] 17 gm PO DAILY PRN PRN 04/13/18 Furosemide [Lasix] 20 mg PO DAILY@1700 08/28/18 Furosemide [Lasix] 40 mg PO DAILY 08/28/18 Loratadine [Claritin] 10 mg PO DAILY 08/28/18 Propranolol HCl 10 mg PO DAILY 08/28/18 Oxybutynin [Ditropan] 15 mg PO DAILY 10/23/18 Phenazopyridine HCl [Pyridium] 200 mg PO Q8H PRN PRN #14 tab 12/08/18 Acetaminophen [Tylenol Tablet] 650 mg PO Q6H PRN PRN tab 01/13/19 Cephalexin [Keflex] 500 mg PO Q8 #21 cap 01/13/19 Insulin Glargine,Hum.rec.anlog [Lantus] 10 unit SQ QHS #1 ml 01/13/19 Insulin Lispro [Humalog KwikPen] See Protocol SUBCUT ACHS insuln.pen 01/13/19 levoFLOXacin tablet [Levaquin tablet] 750 mg PO DAILY #7 tab 01/13/19 Following Prescrptions Were Given to Patient: Cephalexin [Keflex] 500 mg PO Q8 #21 cap Insulin Glargine,Hum.rec.anlog [Lantus] 10 unit SQ QHS #1 ml levoFLOXacin tablet [Levaquin tablet] 750 mg PO DAILY #7 tab Primary Care Physician: Will Shukla MD [Primary Care Provider] - Within 2 Weeks Please Follow Up With: Jose Faria DPM When: 1-2 weeks Please Follow Up With: [facility] surgeon When: 01/21/19 (previously scheduled) [facility]position: [facility] facility Minutes spent on discharge:: 32 Patient Condition:: Good Medical Necessity - Tobacco Use Smoking Status: Never smoker Meaningful Use Info Meaningful Use Diagnoses (Choose all that apply): None applicable - AMI Aspirin given w/in 24hrs of arrival?: Yes Code Visit Inpatient E&M: [id number] Disch Hosp
[2019-01-13 08:35] VITALS: BP 114/68; PULSE 51; RESP 16; TEMP 36.6; O2SAT 98
[2019-01-13] MEDS: Insulin Lispro 100 UNIT/ML INSULN.PEN SC ×2 (08:46→08:47)
[2019-01-13] MEDS: Loratadine 10 MG Tablet PO (08:46)
[2019-01-13] MEDS: Oxybutynin 5 MG Tablet 15 MG PO (08:46)
[2019-01-13 08:56] LABS: Bedside Glucose 155 mg/dL (70-110)
--- NOTE | 2019-01-13 11:36 | NURSING ---
report called to [facility] for discharge; spoke with VERNON Alejandra.
== END 2019-01-13 11:45 | disposition skilled nursing facility (03) | DRG 854 ==
LOC: ED 05:03 → PCU 05:27
PROVIDERS: Podiatrist; Admitting Provider Student in an Organized Health Care Education/Training Program; Emergency Provider Emergency Medicine; Family Provider Family Medicine; PCP Family Medicine; Referring Provider Student in an Organized Health Care Education/Training Program
DX: A41.9 Sepsis, unspecified organism (principal); L97.428 Non-pressure chronic ulcer of left heel and midfoot with other specified severity; L03.116 Cellulitis of left lower limb; Z68.41 Body mass index [BMI] 40.0-44.9, adult; N13.30 Unspecified hydronephrosis; N17.9 Acute kidney failure, unspecified; N39.0 Urinary tract infection, site not specified; N31.9 Neuromuscular dysfunction of bladder, unspecified; R65.20 Severe sepsis without septic shock; E11.621 Type 2 diabetes mellitus with foot ulcer; B95.61 Methicillin susceptible Staphylococcus aureus infection as the cause of diseases classified elsewhere; E11.65 Type 2 diabetes mellitus with hyperglycemia; R53.81 Other malaise; E11.42 Type 2 diabetes mellitus with diabetic polyneuropathy; Q05.7 Lumbar spina bifida without hydrocephalus; E66.01 Morbid (severe) obesity due to excess calories; Z87.440 Personal history of urinary (tract) infections; G43.909 Migraine, unspecified, not intractable, without status migrainosus; B95.4 Other streptococcus as the cause of diseases classified elsewhere
CPT/HCPCS: 36415; 71045; 73630; 73718; 74177; 80048; 80053; 80202; 81001; 82962; 83605; 84484; 85025; 85610; 85730; 87040; 87070; 87075; 87077; 87086; 87088; 87186; 87205; 87640; 93005; 94762; 97162; 97166; 97530; 97802; 99285; J7030; J7040; J7050; Q9967; A4216; J2405

== ENCOUNTER 2019-01-24 09:00 | Outpatient (RCR) | payer MEDICARE, MEDICAID, SELFPAY ==
[2018-12-13 21:27] VITALS: BMI 42.0
[2018-12-27 08:53] VITALS: BP 116/82; PULSE 75; RESP 16; TEMP 36.1
--- NOTE | 2018-12-27 09:59 | HP.PCM_ITS ---
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 (2) Type 2 diabetes mellitus with diabetic polyneuropathy Status: Chronic Current Visit: No Code(s): E11.42 - Type 2 diabetes mellitus with diabetic polyneuropathy (3) Delayed wound healing Status: Acute Current Visit: No Code(s): T14.8XXD - Other injury of unspecified body region, subsequent encounter (4) Lower extremity edema Status: Chronic Current Visit: No Code(s): R60.0 - Localized edema (5) Non-compliance Status: Chronic Current Visit: No Code(s): Z91.19 - Patient's noncompliance with other medical treatment and regimen History of Present Illness Date of Service: 12/27/18 Chief Complaint: left heel ulcer History of Wound: This 38-year-old diabetic female was consulted to the wound healing center for left heel ulcer. Patient had been having treatment at the wound healing center a couple of months ago. Due to other health issues, being in and out of different hospitals and nursing homes, the patient has not been able to follow up here. She saw Dr. Gomez again last week for this issue, and he referred her back to the wound healing center again. She has been keeping the area dressed daily. She also relates that she has been doint her best to keep all pressure off of her left heel, but says at times she still does have pressure to the area. Past Medical History Past Medical History: Chronic Problems (Last Reviewed 12/13/18 @ 21:23 by Gen Butt MD) Normochromic normocytic anemia (Chronic) HGB normal in Apr 2018 Diabetic ulcer of left heel with fat layer exposed (Chronic) Type 2 diabetes mellitus with diabetic polyneuropathy (Chronic) Lower extremity edema (Chronic) Ulcer of left heel and midfoot with fat layer exposed (Chronic) Diabetes mellitus with neuropathy (Chronic) Edema of left lower extremity (Chronic) Constipation (Chronic) Neurogenic bowel (Chronic) Neurogenic bladder (Chronic) Chronic back pain (Chronic) History of migraine (Chronic) Depression (Chronic) 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 Will follow, no need yet for cysto retros etc. But this may change in future 13 Sept Re-admitted consult dictated Surgical History: cholecystectomy, - - D&C, lumbar back surgery x2, foot surgery x2, abdominal stoma, ventral hernia repair. Allergies/Adverse Reactions: Allergies mushroom Allergy (Verified 12/13/18 13:49) Anaphylaxis peanut Allergy (Verified 12/13/18 13:49) Anaphylaxis Gadolinium-MRI Contrast Medium Adverse Reaction (Verified 12/13/18 13:49) Vomiting Home Medications: Ambulatory Orders Medication Instructions Recorded metFORMIN (XR) [Glucophage Xr] 1,000 mg PO BID 06/19/16 Atorvastatin Calcium [Lipitor] 10 mg PO QHS 11/07/17 Pseudoephedrine HCl [Sudogest] 30 mg PO Q6H PRN PRN 01/21/18 Pregabalin [Lyrica] 75 mg PO DAILY 02/25/18 Buspirone HCl 15 mg PO BID 04/11/18 Polyethylene Glycol 3350 [Miralax] 17 gm PO DAILY PRN PRN 04/13/18 Liraglutide [Victoza] 1.2 mg SQ DAILY 07/03/18 Duloxetine HCl 60 mg PO DAILY 08/28/18 Furosemide [Lasix] 20 mg PO DAILY@1700 08/28/18 Furosemide [Lasix] 40 mg PO DAILY 08/28/18 Loratadine [Claritin] 10 mg PO DAILY 08/28/18 Propranolol HCl 10 mg PO DAILY 08/28/18 Oxybutynin [Ditropan] 15 mg PO DAILY 10/23/18 Phenazopyridine HCl [Pyridium] 200 mg PO Q8H PRN PRN #14 tab 12/08/18 Amox/Clavulanate Tablet [Augmentin 875 mg PO Q12H #28 tab 12/15/18 Tablet] - Family History Maternal Family History: Family History (Last Reviewed 12/13/18 @ 21:16 by Gen Butt MD) Mother CVA (cerebral vascular accident) Thyroid disorder Diabetes Hypertension Cancer, Diabetes, Hypertension, Stroke Paternal Family History: Family History (Last Reviewed 12/13/18 @ 21:16 by Gen Butt MD) Mother CVA (cerebral vascular accident) Thyroid disorder Diabetes Hypertension No pertinent history Sibling Family History: Family History (Last Reviewed 12/13/18 @ 21:16 by Gen Butt MD) Mother CVA (cerebral vascular accident) Thyroid disorder Diabetes Hypertension No pertinent history Smoking Status: Never smoker Review of Systems Constitutional: Denies: Chills, Fever, Weight Change Cardiovascular: Denies: Chest Pain, Palpitations Respiratory: Denies: Cough, Shortness of Breath Gastrointestinal: Denies: Diarrhea, Nausea, Vomiting Musculoskeletal: Denies: Leg Pain Skin: Reports: - - Ulcer to left heel - Physical Exam Vital Signs Temp Pulse Resp BP 96.9 F L 75 16 116/82 H 12/27/18 08:53 12/27/18 08:53 12/27/18 08:53 12/27/18 08:53 General: Alert, Oriented x3, Cooperative, No apparent distress Extremities: No cyanosis, Capillary Refill Less than 3 Seconds, No Calf Tenderness - Negative Angella and Pinto signs bilateral, Edema - Lower extremity edema, Peripheral Pulses Normal Skin: Ulcer/ Wound - Ulcer with fat layer exposed left heel. The base is a mixture of adherent slough, devitalized subcutaneous tissue, fibrin, biofilm, granular tissue, and surrounding hyperkeratotic skin. There is no probing to bone, no tracking, no undermining, no purulence, no surrounding or extending cellulitis, no malodor, and no increase in warmth to the ulcer site at this time. Wound Measurements and Assessment WC - Nurse 1 - General Ulcer Measurement Start: 12/27/18 08:53 Freq: Status: Active Protocol: Activity Type Activity Date Activity User E-Sign Co-Sign Detail Recorded Client Recorded Date Recorded By Document 12/27/18 08:53 BS [id number] 12/27/18 09:03 BS 12/27/18 08:53 Wound Center Nurse 1 [Ulcer Assessment] #4 L calcaneus -Combined with other wound No -Current Size (cm) - Length 2.7 -Current Size (cm) - Width 1.7 -Current Size (cm) - Depth 0.2 -Total Square Cm 4.59 -Date of Last Picture (Recall this 12/27/18 field) -Photo Taken Yes -Classification - Thickness Full Thickness without Exposed Support Structure -Texture (Joan-wound Skin Appearance) Assessed, Scarring -Moisture (Joan-wound Skin Appearance Assessed,Dry/ ) Scaly -Color (Joan-wound Skin Appearance) Assessed -Temperature (Joan-wound Skin No Abnormality Appearance) (Pt Warm) -Tenderness on Palpation (Joan-wound Yes Skin Appearance) -Ulcer Cleansing Rinsed/ Irrigated with Saline -Foul Odor after Cleansing No -Anesthetic Used 5% Lidocaine Gel [Edema Assessment] -Point of measurement (cm from the 51.5 medial instep) -Point of Measurement (cm from the 25.5 medial instep) WC - Nurse 2 - General Ulcer CM Notes Start: 12/27/18 08:53 Freq: Status: Active Protocol: Activity Type Activity Date Activity User E-Sign Co-Sign Detail Recorded Client Recorded Date Recorded By Document 12/27/18 09:23 AN [id number] 12/27/18 09:29 AN 12/27/18 09:23 Wound Center Nurse 2 [Procedure/Treatment] #4 L calcaneus -Time 09:23 -Correct Patient Yes -Correct Side, Site, Position Yes -Correct Procedure Yes -Procedure Performed Yes -Type of Procedure Debridement -Clinical Debridement Subcutaneous -Post Debridement Size (cm) - Length 2.8 -Post Debridement Size (cm) - Width 2.0 -Post Debridement Size (cm) - Depth 0.3 -Total Square Cm 5.60 -Wound/Ulcer Outcome Not Healed [See Physician Procedure note for Specifics] Pain Scale: 0-10 Numeric [Pain] -Is Patient Pain Free? Yes Musculoskeletal: No Tenderness to Palpation of Joints or Extremities Neurological: - - Epicritic sensation grossly absent to bilateral lower extremities Psych/Mental Status: Normal Affect, Appropriate Debridement Note Post-Debridement Measurements/Treatment WC - Nurse 2 - General Ulcer CM Notes Start: 12/27/18 08:53 Freq: Status: Active Protocol: Activity Type Activity Date Activity User E-Sign Co-Sign Detail Recorded Client Recorded Date Recorded By Document 12/27/18 09:23 AN [id number] 12/27/18 09:29 AN 12/27/18 09:23 Wound Center Nurse 2 #4 L calcaneus -Time 09:23 -Correct Patient Yes -Correct Side, Site, Position Yes -Correct Procedure Yes -Procedure Performed Yes -Type of Procedure Debridement -Clinical Debridement Subcutaneous -Post Debridement Size (cm) - Length 2.8 -Post Debridement Size (cm) - Width 2.0 -Post Debridement Size (cm) - Depth 0.3 -Total Square Cm 5.60 -Wound/Ulcer Outcome Not Healed Pain Scale: 0-10 Numeric Is Patient Pain Free? Yes Wound debrided: Left heel Laterality: Left Type of Debridement: Excisional debridement Anesthesia Used: 5% Lidocaine Gel Depth: in the subcutaneous layer Percentage of wound debrided: 100 Instrument Used: 3mm curette, #15 blade Tissue Removed: Adherent slough, fibrin, devitalized subcutaneous tissue, biofilm Severity: Fat Layer Exposed Amount of bleeding with debridement: Mild Bleeding Controlled with: Pressure Patient tolerated procedure well Assessment/Plan Assessment: Diabetic ulcer left heel. DM 2 with neuropathy. Other comorbidities Plan: Patient was carefully examined and evaluated again today. A subcutaneous debridement was performed as noted in the clinical panel. Once complete, the ulcer site was carefully cleansed and then dressed with Aquacel Ag to the base followed by dry sterile dressing. The patient is to have the dressing change in this manner on a daily basis. The patient was instructed to keep the left heel offloaded at all times while seated or laying down. She is to keep the heel floated completely with nothing under it except air. Patient is to be nonweightbearing to the left heel. I continue to recommend a diet high in prote in to help optimize ulcer healing potential. We discussed potential for her returning to a SNF in the future if she is unable to get the help she needs at home. The patient was educated on all signs and symptoms of local and systemic infection, and she was instructed to go to the emergency room immediately should she notice any of these. All other questions were answered to the patient's satisfaction today. The patient will follow back up in clinic in 1 week to check on progress, or sooner if needed before then.
[2019-01-17 09:30] VITALS: BP 103/73; PULSE 69; RESP 16; TEMP 36.4; BMI 42.0
--- NOTE | 2019-01-17 10:10 | PCM.WC.PN ---
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 (2) Type 2 diabetes mellitus with diabetic polyneuropathy Status: Chronic Current Visit: No Code(s): E11.42 - Type 2 diabetes mellitus with diabetic polyneuropathy (3) Delayed wound healing Status: Acute Current Visit: No Code(s): T14.8XXD - Other injury of unspecified body region, subsequent encounter (4) Lower extremity edema Status: Chronic Current Visit: No Code(s): R60.0 - Localized edema (5) Non-compliance Status: Chronic Current Visit: No Code(s): Z91.19 - Patient's noncompliance with other medical treatment and regimen Type of Wound Date of Service: 01/17/19 Chief Complaint: left heel ulcer History of Wound: This 38-year-old diabetic female was consulted to the wound healing center for left heel ulcer. Patient had been having treatment at the wound healing center a couple of months ago. Due to other health issues, being in and out of different hospitals and nursing homes, the patient has not been able to follow up here. She saw Dr. Gomez again last week for this issue, and he referred her back to the wound healing center again. She has been keeping the area dressed daily. She also relates that she has been doint her best to keep all pressure off of her left heel, but says at times she still does have pressure to the area. Progress of Wound: Patient's ulcer to left heel shows improvement this week. She was hospitalized over last weekend for some cellulitis that has since resolved. Patient currently denies any feelings of nausea, vomiting, fever, chills. She says she is now at [facility] where she is better able to keep her heel offloaded as instructed. - Physical Exam Vital Signs Temp Pulse Resp BP 97.5 F L 69 16 103/73 01/17/19 09:30 01/17/19 09:30 01/17/19 09:30 01/17/19 09:30 General: Alert, Oriented x3, Cooperative, No apparent distress Extremities: No cyanosis, Capillary Refill Less than 3 Seconds, No Calf Tenderness - Negative Angella and Pinto signs bilateral, Edema - Lower extremity edema, Peripheral Pulses Normal Skin: Ulcer/ Wound - Ulcer with fat layer exposed left heel. Ulcer shows improvement since last seen at wound center. The base is a mixture of adherent slough, devitalized subcutaneous tissue, fibrin, biofilm, granular tissue, and surrounding hyperkeratotic skin. There is no probing to bone, no tracking, no undermining, no purulence, no surrounding or extending cellulitis, no malodor, and no increase in warmth to the ulcer site at this time. Wound Measurements and Assessment WC - Nurse 1 - General Ulcer Measurement Start: 12/27/18 08:53 Freq: Status: Active Protocol: Activity Type Activity Date Activity User E-Sign Co-Sign Detail Recorded Client Recorded Date Recorded By Document 01/17/19 09:30 [facility] [id number] 01/17/19 09:42 [facility] 01/17/19 09:30 Wound Center Nurse 1 [Ulcer Assessment] #4 L calcaneus -Combined with other wound No -Current Size (cm) - Length 1.5 -Current Size (cm) - Width 0.3 -Current Size (cm) - Depth 0.2 -Total Square Cm 0.45 -Date of Last Picture (Recall this 01/17/19 field) -Photo Taken Yes -Epithelialization None Present -Tunneling No -Undermining/Tunneling No -Circular Undermining No -Exudate Amt Small -Exudate Type Serosanguineous -Wound Margin Distinct, Outline Attached -Granulation Amt Large (67-100%) -Granulation Quality Red -Slough/Fibrin Yes -Necrosis Amt Small (1-33%) -Necrotic Tissue Type Adherent Slough -Texture (Joan-wound Skin Appearance) Assessed,Callus ,Scarring -Moisture (Joan-wound Skin Appearance Assessed,Dry/ ) Scaly -Color (Joan-wound Skin Appearance) Assessed -Temperature (Joan-wound Skin No Abnormality Appearance) (Pt Warm) -Tenderness on Palpation (Joan-wound No Skin Appearance) -Ulcer Cleansing soap and water -Anesthetic Used 5% Lidocaine Gel [Edema Assessment] -Lower Limb Edema Present Yes -Left Calf (cm) 50 -Left Ankle (cm) 25.3 Musculoskeletal: No Tenderness to Palpation of Joints or Extremities Neurological: - - Epicritic sensation grossly absent bilateral lower extremities Psych/Mental Status: Normal Affect, Appropriate Debridement Note Post-Debridement Measurements/Treatment WC - Nurse 2 - General Ulcer CM Notes Start: 12/27/18 08:53 Freq: Status: Active Protocol: Activity Type Activity Date Activity User E-Sign Co-Sign Detail Recorded Client Recorded Date Recorded By Document 12/27/18 09:23 [facility] [id number] 12/27/18 09:29 AN 12/27/18 09:23 Wound Center Nurse 2 #4 L calcaneus -Time 09:23 -Correct Patient Yes -Correct Side, Site, Position Yes -Correct Procedure Yes -Procedure Performed Yes -Type of Procedure Debridement -Clinical Debridement Subcutaneous -Post Debridement Size (cm) - Length 2.8 -Post Debridement Size (cm) - Width 2.0 -Post Debridement Size (cm) - Depth 0.3 -Total Square Cm 5.60 -Wound/Ulcer Outcome Not Healed Pain Scale: 0-10 Numeric Is Patient Pain Free? Yes Wound debrided: Left heel Laterality: Left Type of Debridement: Excisional debridement Anesthesia Used: 5% Lidocaine Gel Depth: in the subcutaneous layer Percentage of wound debrided: 100 Instrument Used: 3mm curette, #15 blade Tissue Removed: Adherent slough, fibrin, devitalized subcutaneous tissue, biofilm Severity: Fat Layer Exposed Amount of bleeding with debridement: Mild Bleeding Controlled with: Pressure Patient tolerated procedure well Assessment/Plan Assessment: Diabetic ulcer left heel. DM 2 with neuropathy. Other comorbidities Plan: Patient was carefully examined and evaluated again today. A subcutaneous debridement was performed as noted in the clinical panel. Once complete, the ulcer site was carefully cleansed and then dressed with Aquacel Ag to the base followed by dry sterile dressing. The patient is to have the dressing change in this manner on a daily basis. She is now at [facility] after being discharged from the hospital last weekend. The patient was instructed to keep the left heel offloaded at all times while seated or laying down. She is to continue with offloading CAM Walker to the left side. She is to keep pressure off of her heel if she needs to be up with CAM Walker. She is to keep the heel floated completely with nothing under it except air. I continue to recommend a diet high in protein to help optimize ulcer healing potential. The patient was educated on all signs and symptoms of local and systemic infection, and she was instructed to go to the emergency room immediately should she notice any of these. All other questions were answered to the patient's satisfaction today. The patient will follow back up in clinic in 1 week to check on progress, or sooner if needed before then.
[2019-01-24 09:11] VITALS: BP 133/80; PULSE 77; RESP 16; TEMP 36.3; BMI 42.0
--- NOTE | 2019-01-24 10:28 | PN.PCM_ITS ---
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 (2) Type 2 diabetes mellitus with diabetic polyneuropathy Status: Chronic Current Visit: No Code(s): E11.42 - Type 2 diabetes mellitus with diabetic polyneuropathy (3) Delayed wound healing Status: Acute Current Visit: No Code(s): T14.8XXD - Other injury of unspecified body region, subsequent encounter (4) Lower extremity edema Status: Chronic Current Visit: No Code(s): R60.0 - Localized edema (5) Non-compliance Status: Chronic Current Visit: No Code(s): Z91.19 - Patient's noncompliance with other medical treatment and regimen Type of Wound Date of Service: 01/24/19 Chief Complaint: left heel ulcer History of Wound: This 38-year-old diabetic female was consulted to the wound healing center for left heel ulcer. Patient had been having treatment at the wound healing center a couple of months ago. Due to other health issues, being in and out of different hospitals and nursing homes, the patient has not been able to follow up here. She saw Dr. Gomez again last week for this issue, and he referred her back to the wound healing center again. She has been keeping the area dressed daily. She also relates that she has been doint her best to keep all pressure off of her left heel, but says at times she still does have pressure to the area. Progress of Wound: Patient's ulcer to left heel shows improvement this week again. Patient currently denies any feelings of nausea, vomiting, fever, chills. - Physical Exam Vital Signs Temp Pulse Resp BP 97.3 F L 77 16 133/80 H 01/24/19 09:11 01/24/19 09:11 01/24/19 09:11 01/24/19 09:11 General: Alert, Oriented x3, Cooperative, No apparent distress Extremities: No cyanosis, Capillary Refill Less than 3 Seconds, No Calf Tenderness - Negative Angella and Pinto signs bilateral, Edema - Lower extremity edema, Peripheral Pulses Normal Skin: Ulcer/ Wound - Ulcer with fat layer exposed left heel. Ulcer shows improvement again today. The base is a mixture of adherent slough, devitalized subcutaneous tissue, fibrin, biofilm, granular tissue, and surrounding hyperkeratotic skin. There is no probing to bone, no tracking, no undermining, no purulence, no surrounding or extending cellulitis, no malodor, and no increase in warmth to the ulcer site at this time. Wound Measurements and Assessment - Nurse 1 - General Ulcer Measurement Start: 12/27/18 08:53 Freq: Status: Active Protocol: Activity Type Activity Date Activity User E-Sign Co-Sign Detail Recorded Client Recorded Date Recorded By Document 01/24/19 09:11 [facility] [id number] 01/24/19 09:18 [facility] 01/24/19 09:11 Wound Center Nurse 1 [Ulcer Assessment] #4 L calcaneus -Combined with other wound No -Current Size (cm) - Length 1.7 -Current Size (cm) - Width 0.1 -Current Size (cm) - Depth 0.1 -Total Square Cm 0.17 -Date of Last Picture (Recall this 01/24/19 field) -Photo Taken Yes -Epithelialization None Present -Tunneling No -Undermining/Tunneling No -Circular Undermining No -Exudate Amt Small -Exudate Type Serosanguineous -Wound Margin Flat & Intact -Granulation Amt None Present (0 %) -Slough/Fibrin Yes -Necrosis Amt Large (67-100%) -Necrotic Tissue Type Adherent Slough -Texture (Joan-wound Skin Appearance) Callus -Moisture (Joan-wound Skin Appearance Assessed,Dry/ ) Scaly -Color (Joan-wound Skin Appearance) Assessed -Temperature (Joan-wound Skin No Abnormality Appearance) (Pt Warm) -Tenderness on Palpation (Joan-wound No Skin Appearance) -Ulcer Cleansing Rinsed/ Irrigated with Saline -Foul Odor after Cleansing No -Anesthetic Used 5% Lidocaine Gel [Edema Assessment] -Lower Limb Edema Present Yes -Left Calf (cm) 50 -Left Ankle (cm) 26.2 - Nurse 2 - General Ulcer CM Notes Start: 12/27/18 08:53 Freq: Status: Active Protocol: Activity Type Activity Date Activity User E-Sign Co-Sign Detail Recorded Client Recorded Date Recorded By Document 01/24/19 09:46 [id number] 01/24/19 09:47 08/29/19 09:46 Wound Center Nurse 2 [Procedure/Treatment] #4 L calcaneus -Correct Patient Yes -Correct Side, Site, Position Yes -Correct Procedure Yes -Procedure Performed Yes -Type of Procedure Debridement -Clinical Debridement Subcutaneous -Post Debridement Size (cm) - Length 1.5 -Post Debridement Size (cm) - Width 0.4 -Post Debridement Size (cm) - Depth 0.1 -Total Square Cm 0.60 -Wound/Ulcer Outcome Not Healed -Ulcer Cleansing Rinsed/ Irrigated with Saline -Foul Odor after Cleansing No -Bioengineered Tissue No -Bleeding Controlled with Pressure -Type of Offloading Camwalker -Treatment Response Procedure Tolerated Well [See Physician Procedure note for Specifics] Pain Scale: 0-10 Numeric [Pain] -Is Patient Pain Free? Yes Musculoskeletal: No Tenderness to Palpation of Joints or Extremities Neurological: - - Epicritic sensation grossly absent bilateral lower extremity Psych/Mental Status: Normal Affect, Appropriate Debridement Note Post-Debridement Measurements/Treatment WC - Nurse 2 - General Ulcer CM Notes Start: 12/27/18 08:53 Freq: Status: Active Protocol: Activity Type Activity Date Activity User E-Sign Co-Sign Detail Recorded Client Recorded Date Recorded By Document 12/27/18 09:23 AN [id number] 12/27/18 09:29 AN Document 01/24/19 09:46 [id number] 01/24/19 09:47 12/27/18 01/24/19 09:23 09:46 Wound Center Nurse 2 #4 L calcaneus -Time 09:23 -Correct Patient Yes Yes -Correct Side, Site, Position Yes Yes -Correct Procedure Yes Yes -Procedure Performed Yes Yes -Type of Procedure Debridement Debridement -Clinical Debridement Subcutaneous Subcutaneous -Post Debridement Size (cm) - Length 2.8 1.5 -Post Debridement Size (cm) - Width 2.0 0.4 -Post Debridement Size (cm) - Depth 0.3 0.1 -Total Square Cm 5.60 0.60 -Wound/Ulcer Outcome Not Healed Not Healed -Ulcer Cleansing Rinsed/ Irrigated with Saline -Foul Odor after Cleansing No -Bioengineered Tissue No -Bleeding Controlled with Pressure -Type of Offloading Camwalker -Treatment Response Procedure Tolerated Well Pain Scale: 0-10 Numeric Is Patient Pain Free? Yes Yes Wound debrided: Left heel Laterality: Left Type of Debridement: Excisional debridement Anesthesia Used: 5% Lidocaine Gel Depth: in the subcutaneous layer Percentage of wound debrided: 100 Instrument Used: #15 blade Tissue Removed: Adherent slough, fibrin, devitalized subcutaneous tissue, biofilm Severity: Fat Layer Exposed Amount of bleeding with debridement: Mild Bleeding Controlled with: Pressure Patient tolerated procedure well Assessment/Plan Assessment: Diabetic ulcer left heel. DM 2 with neuropathy. Other comorbidities Plan: Patient was carefully examined and evaluated again today. A subcutaneous debridement was performed as noted in the clinical panel. Once complete, the ulcer site was carefully cleansed and then dressed with Aquacel Ag to the base followed by dry sterile dressing. The patient is to have the dressing change in this manner on a daily basis. Patient is at [facility] to help with care. The patient was instructed to keep the left heel offloaded at all times while seated or laying down. She is to continue with offloading CAM Walker to the left side. She is to keep pressure off of her heel if she needs to be up with CAM Walker. She is to keep the heel floated completely with nothing under it except air. I continue to recommend a diet high in protein to help optimize ulcer healing potential. The patient was educated on all signs and symptoms of local and systemic infection, and she was instructed to go to the emergency room immediately should she notice any of these. All other questions were answered to the patient's satisfaction today. The patient will follow back up in clinic in 1 week to check on progress, or sooner if needed before then.
== END 2019-01-26 23:59 ==
LOC: WC 09:00
PROVIDERS: Family Provider Family Medicine; PCP Family Medicine; Visit Provider Podiatrist
DX: E11.621 Type 2 diabetes mellitus with foot ulcer (principal); E11.42 Type 2 diabetes mellitus with diabetic polyneuropathy; L97.422 Non-pressure chronic ulcer of left heel and midfoot with fat layer exposed; R60.0 Localized edema; Z91.19 Patient's noncompliance with other medical treatment and regimen; E66.01 Morbid (severe) obesity due to excess calories; Z68.41 Body mass index [BMI] 40.0-44.9, adult; Z79.899 Other long term (current) drug therapy; Z79.84 Long term (current) use of oral hypoglycemic drugs
CPT/HCPCS: 11042; 97597

== ENCOUNTER 2019-02-14 09:00 | Outpatient (RCR) | payer MEDICARE, MEDICAID, SELFPAY ==
[2019-01-27 01:05] VITALS: BP 133/80; PULSE 77; RESP 16; TEMP 36.3; BMI 42.1
[2019-01-31 09:09] VITALS: BP 108/66; PULSE 74; RESP 16; TEMP 36.2; BMI 42.1
--- NOTE | 2019-01-31 11:54 | PCM.WC.PN ---
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 (2) Type 2 diabetes mellitus with diabetic polyneuropathy Status: Chronic Current Visit: No Code(s): E11.42 - Type 2 diabetes mellitus with diabetic polyneuropathy (3) Delayed wound healing Status: Acute Current Visit: No Code(s): T14.8XXD - Other injury of unspecified body region, subsequent encounter (4) Lower extremity edema Status: Chronic Current Visit: No Code(s): R60.0 - Localized edema (5) Non-compliance Status: Acute Current Visit: Yes Code(s): Z91.19 - Patient's noncompliance with other medical treatment and regimen Type of Wound Date of Service: 01/31/19 Chief Complaint: left heel ulcer History of Wound: This 38-year-old diabetic female was consulted to the wound healing center for left heel ulcer. Patient had been having treatment at the wound healing center a couple of months ago. Due to other health issues, being in and out of different hospitals and nursing homes, the patient has not been able to follow up here. She saw Dr. Gomez again last week for this issue, and he referred her back to the wound healing center again. She has been keeping the area dressed daily. She also relates that she has been doint her best to keep all pressure off of her left heel, but says at times she still does have pressure to the area. Progress of Wound: Patient's ulcer to left heel shows continued improvement. Patient currently denies any feelings of nausea, vomiting, fever, chills. - Physical Exam Vital Signs Temp Pulse Resp BP 97.1 F L 74 16 108/66 01/31/19 09:09 01/31/19 09:09 01/31/19 09:09 01/31/19 09:09 General: Alert, Oriented x3, Cooperative, No apparent distress Extremities: No cyanosis, Capillary Refill Less than 3 Seconds, No Calf Tenderness - Negative Angella and Pinto signs bilateral, Edema - Lower extremity edema, Peripheral Pulses Normal Skin: Ulcer/ Wound - Ulcer with fat layer exposed left heel. Ulcer shows continued improvement. The base is a mixture of adherent slough, devitalized subcutaneous tissue, fibrin, biofilm, granular tissue, and surrounding hyperkeratotic skin. There is no probing to bone, no tracking, no undermining, no purulence, no surrounding or extending cellulitis, no malodor, and no increase in warmth to the ulcer site at this time. Wound Measurements and Assessment - Nurse 1 - General Ulcer Measurement Start: 01/31/19 09:09 Freq: Status: Active Protocol: Activity Type Activity Date Activity User E-Sign Co-Sign Detail Recorded Client Recorded Date Recorded By Document 01/31/19 09:09 BS [id number] 01/31/19 09:11 BS 01/31/19 09:09 Wound Center Nurse 1 [Ulcer Assessment] #4 L calcaneus -Combined with other wound No -Current Size (cm) - Length 0.1 -Current Size (cm) - Width 0.1 -Current Size (cm) - Depth 0.1 -Total Square Cm 0.01 -Temperature (Joan-wound Skin No Abnormality Appearance) (Pt Warm) -Tenderness on Palpation (Joan-wound No Skin Appearance) -Ulcer Cleansing Rinsed/ Irrigated with Saline -Foul Odor after Cleansing No -Anesthetic Used 5% Lidocaine Gel - Nurse 2 - General Ulcer CM Notes Start: 01/31/19 09:09 Freq: Status: Active Protocol: Activity Type Activity Date Activity User E-Sign Co-Sign Detail Recorded Client Recorded Date Recorded By Document 01/31/19 09:17 AN [id number] 01/31/19 09:18 AN 01/31/19 09:17 Wound Center Nurse 2 [Procedure/Treatment] -Time 09:18 -Correct Patient Yes -Correct Side, Site, Position Yes -Correct Procedure Yes -Procedure Performed Yes -Type of Procedure Debridement -Clinical Debridement Subcutaneous -Post Debridement Size (cm) - Length 0.5 -Post Debridement Size (cm) - Width 0.3 -Post Debridement Size (cm) - Depth 0.1 -Total Square Cm 0.15 -Wound/Ulcer Outcome Not Healed -Ulcer Cleansing Rinsed/ Irrigated with Saline -Foul Odor after Cleansing No -Bioengineered Tissue No -Bleeding Controlled with Pressure -Offloading Yes -Treatment Response Procedure Tolerated Well [See Physician Procedure note for Specifics] Pain Scale: 0-10 Numeric [Pain] -Is Patient Pain Free? Yes Musculoskeletal: No Tenderness to Palpation of Joints or Extremities Neurological: - - Epicritic sensation grossly absent to bilateral lower extremities Psych/Mental Status: Normal Affect, Appropriate Debridement Note Post-Debridement Measurements/Treatment WC - Nurse 2 - General Ulcer CM Notes Start: 01/31/19 09:09 Freq: Status: Active Protocol: Activity Type Activity Date Activity User E-Sign Co-Sign Detail Recorded Client Recorded Date Recorded By Document 01/31/19 09:17 AN [id number] 01/31/19 09:18 AN 01/31/19 09:17 Wound Center Nurse 2 #4 L calcaneus -Time 09:18 -Correct Patient Yes -Correct Side, Site, Position Yes -Correct Procedure Yes -Procedure Performed Yes -Type of Procedure Debridement -Clinical Debridement Subcutaneous -Post Debridement Size (cm) - Length 0.5 -Post Debridement Size (cm) - Width 0.3 -Post Debridement Size (cm) - Depth 0.1 -Total Square Cm 0.15 -Wound/Ulcer Outcome Not Healed -Ulcer Cleansing Rinsed/ Irrigated with Saline -Foul Odor after Cleansing No -Bioengineered Tissue No -Bleeding Controlled with Pressure -Offloading Yes -Treatment Response Procedure Tolerated Well Pain Scale: 0-10 Numeric Is Patient Pain Free? Yes Wound debrided: Left heel Laterality: Left Type of Debridement: Excisional debridement Anesthesia Used: 5% Lidocaine Gel Depth: in the subcutaneous layer Percentage of wound debrided: 100 Instrument Used: #15 blade Tissue Removed: Adherent slough, fibrin, devitalized subcutaneous tissue, biofilm Severity: Fat Layer Exposed Amount of bleeding with debridement: Mild Bleeding Controlled with: Pressure Patient tolerated procedure well Assessment/Plan Active Problems (Last Reviewed 12/13/18 @ 21:23 by Gen Butt MD) Non-compliance (Acute) Assessment: Diabetic ulcer left heel. DM 2 with neuropathy. Other comorbidities Plan: Patient was carefully examined and evaluated again today. A subcutaneous debridement was performed as noted in the clinical panel. Once complete, the ulcer site was carefully cleansed and then dressed with Aquacel Ag to the base followed by dry sterile dressing. The patient is to have the dressing change in this manner on a daily basis. Patient is at [facility] to help with care. She says she will be here for a little over 1 more week. The patient was instructed to keep the left heel offloaded at all times while seated or laying down. She is to continue with offloading CAM Walker to the left side. She is to keep pressure off of her heel if she needs to be up with CAM Walker. She is to keep the heel floated completely with nothing under it except air. I continue to recommend a diet high in protein to help optimize ulcer healing potential. The patient was educated on all signs and symptoms of local and systemic infection, and she was instructed to go to the emergency room immediately should she notice any of these. All other questions were answered to the patient's satisfaction today. The patient will follow back up in clinic in 1 week to check on progress, or sooner if needed before then.
[2019-02-07 08:19] VITALS: BP 125/85; PULSE 78; RESP 18; TEMP 36.2; BMI 42.1
--- NOTE | 2019-02-07 08:38 | PN.PCM_ITS ---
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 (2) Type 2 diabetes mellitus with diabetic polyneuropathy Status: Chronic Current Visit: No Code(s): E11.42 - Type 2 diabetes mellitus with diabetic polyneuropathy (3) Delayed wound healing Status: Acute Current Visit: No Code(s): T14.8XXD - Other injury of unspecified body region, subsequent encounter (4) Lower extremity edema Status: Chronic Current Visit: No Code(s): R60.0 - Localized edema (5) Non-compliance Status: Acute Current Visit: Yes Code(s): Z91.19 - Patient's noncompliance with other medical treatment and regimen Type of Wound Date of Service: 02/07/19 Chief Complaint: left heel ulcer History of Wound: This 38-year-old diabetic female was consulted to the wound healing center for left heel ulcer. Patient had been having treatment at the wound healing center a couple of months ago. Due to other health issues, being in and out of different hospitals and nursing homes, the patient has not been able to follow up here. She saw Dr. Gomez again last week for this issue, and he referred her back to the wound healing center again. She has been keeping the area dressed daily. She also relates that she has been doint her best to keep all pressure off of her left heel, but says at times she still does have pressure to the area. Progress of Wound: Patient's ulcer to left heel appears almost healed today. Patient currently denies any feelings of nausea, vomiting, fever, chills. - Physical Exam Vital Signs Temp Pulse Resp BP 97.1 F L 78 18 125/85 H 02/07/19 08:19 02/07/19 08:19 02/07/19 08:19 02/07/19 08:19 General: Alert, Oriented x3, Cooperative, No apparent distress Extremities: No cyanosis, Capillary Refill Less than 3 Seconds, No Calf Tenderness - Negative Angella and Pinto signs bilateral, Edema - Lower extremity edema, Peripheral Pulses Normal Skin: Ulcer/ Wound - Ulcer with fat layer exposed left heel. Ulcer almost healed today. The base is a mixture of adherent slough, with the majority of granular tissue, and surrounding hyperkeratotic skin. There is no probing to bone, no tracking, no undermining, no purulence, no surrounding or extending cellulitis, no malodor, and no increase in warmth to the ulcer site at this time. Wound Measurements and Assessment - Nurse 1 - General Ulcer Measurement Start: 01/31/19 09:09 Freq: Status: Active Protocol: Activity Type Activity Date Activity User E-Sign Co-Sign Detail Recorded Client Recorded Date Recorded By Document 02/07/19 08:19 DL [id number] 02/07/19 08:26 DL 02/07/19 08:19 Wound Center Nurse 1 [Ulcer Assessment] #4 L calcaneus -Current Size (cm) - Length 0.1 -Current Size (cm) - Width 0.1 -Current Size (cm) - Depth 0.1 -Total Square Cm 0.01 -Photo Taken No -Exudate Amt None Present -Wound Margin Indistinct, Non -Visible -Granulation Amt Large (67-100%) -Granulation Quality Short Pump -Necrosis Amt Small (1-33%) -Necrotic Tissue Type Adherent Slough -Structure Exposed N/A -Texture (Joan-wound Skin Appearance) Scarring -Moisture (Joan-wound Skin Appearance Dry/Scaly ) -Color (Joan-wound Skin Appearance) No Abnormality -Temperature (Joan-wound Skin No Abnormality Appearance) (Pt Warm) -Tenderness on Palpation (Joan-wound No Skin Appearance) -Ulcer Cleansing Rinsed/ Irrigated with Saline -Foul Odor after Cleansing No -Anesthetic Used 4% Lidocaine Solution [Edema Assessment] -Left Calf (cm) 47 -Left Ankle (cm) 23.8 - Nurse 2 - General Ulcer CM Notes Start: 01/31/19 09:09 Freq: Status: Active Protocol: Activity Type Activity Date Activity User E-Sign Co-Sign Detail Recorded Client Recorded Date Recorded By Document 02/07/19 08:33 AN [id number] 02/07/19 08:35 AN 02/07/19 08:33 Wound Center Nurse 2 [Procedure/Treatment] #4 L calcaneus -Time 08:34 -Correct Patient Yes -Correct Side, Site, Position Yes -Correct Procedure Yes -Procedure Performed Yes -Type of Procedure Debridement -Clinical Debridement Subcutaneous -Post Debridement Size (cm) - Length 0.1 -Post Debridement Size (cm) - Width 0.1 -Post Debridement Size (cm) - Depth 0.1 -Total Square Cm 0.01 -Wound/Ulcer Outcome Not Healed -Ulcer Cleansing Rinsed/ Irrigated with Saline -Foul Odor after Cleansing No -Bioengineered Tissue No -Bleeding Controlled with Pressure -Offloading Yes -Treatment Response Procedure Tolerated Well [See Physician Procedure note for Specifics] Pain Scale: 0-10 Numeric [Pain] -Is Patient Pain Free? Yes Musculoskeletal: No Tenderness to Palpation of Joints or Extremities Neurological: - - Epicritic sensation grossly absent to bilateral lower extremities Psych/Mental Status: Normal Affect, Appropriate Debridement Note Post-Debridement Measurements/Treatment WC - Nurse 2 - General Ulcer CM Notes Start: 01/31/19 09:09 Freq: Status: Active Protocol: Activity Type Activity Date Activity User E-Sign Co-Sign Detail Recorded Client Recorded Date Recorded By Document 01/31/19 09:17 AN [id number] 01/31/19 09:18 AN Document 02/07/19 08:33 AN [id number] 02/07/19 08:35 AN 01/31/19 02/07/19 09:17 08:33 Wound Center Nurse 2 #4 L calcaneus -Time 09:18 08:34 -Correct Patient Yes Yes -Correct Side, Site, Position Yes Yes -Correct Procedure Yes Yes -Procedure Performed Yes Yes -Type of Procedure Debridement Debridement -Clinical Debridement Subcutaneous Subcutaneous -Post Debridement Size (cm) - Length 0.5 0.1 -Post Debridement Size (cm) - Width 0.3 0.1 -Post Debridement Size (cm) - Depth 0.1 0.1 -Total Square Cm 0.15 0.01 -Wound/Ulcer Outcome Not Healed Not Healed -Ulcer Cleansing Rinsed/ Rinsed/ Irrigated with Irrigated with Saline Saline -Foul Odor after Cleansing No No -Bioengineered Tissue No No -Bleeding Controlled with Pressure Pressure -Offloading Yes Yes -Treatment Response Procedure Procedure Tolerated Well Tolerated Well Pain Scale: 0-10 Numeric Is Patient Pain Free? Yes Yes Wound debrided: Left heel Laterality: Left Type of Debridement: Selective debridement Anesthesia Used: 5% Lidocaine Gel Depth: in the subcutaneous layer Percentage of wound debrided: 100 Instrument Used: #15 blade Tissue Removed: Adherent slough and hyperkeratotic tissue Severity: Fat Layer Exposed Amount of bleeding with debridement: Mild Bleeding Controlled with: Pressure Patient tolerated procedure well Assessment/Plan Active Problems (Last Reviewed 12/13/18 @ 21:23 by eGn Butt MD) Non-compliance (Acute) Assessment: Diabetic ulcer left heel. DM 2 with neuropathy. Other comorbidities Plan: Patient was carefully examined and evaluated again today. A selective debridement was performed as noted in the clinical panel. The site is almost healed today. Once complete, the ulcer site was carefully cleansed and then dressed with Aquacel Ag to the base followed by dry sterile dressing. The patient is to have the dressing change in this manner on a daily basis. Patient is at [facility] to help with care until Monday. The patient was instructed to keep the left heel offloaded at all times while seated or laying down. She is to continue with offloading CAM Walker to the left side. She is to keep pressure off of her heel if she needs to be up with CAM Walker. She is to keep the heel floated completely with nothing under it except air. I continue to recommend a diet high in protein to help optimize ulcer healing potential. The patient was educated on all signs and symptoms of local and systemic infection, and she was instructed to go to the emergency room immediately should she notice any of these. All other questions were answered to the patient's satisfaction today. The patient will follow back up in clinic in 1 week to check on progress, or sooner if needed before then.
[2019-02-14 08:57] VITALS: BP 126/82; PULSE 63; RESP 18; TEMP 36.4; BMI 42.1
--- NOTE | 2019-02-14 10:00 | PCM.WC.PN ---
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 (2) Type 2 diabetes mellitus with diabetic polyneuropathy Status: Chronic Current Visit: No Code(s): E11.42 - Type 2 diabetes mellitus with diabetic polyneuropathy (3) Delayed wound healing Status: Acute Current Visit: No Code(s): T14.8XXD - Other injury of unspecified body region, subsequent encounter (4) Lower extremity edema Status: Chronic Current Visit: No Code(s): R60.0 - Localized edema (5) Non-compliance Status: Acute Current Visit: Yes Code(s): Z91.19 - Patient's noncompliance with other medical treatment and regimen Type of Wound Date of Service: 02/14/19 Chief Complaint: left heel ulcer History of Wound: This 38-year-old diabetic female was consulted to the wound healing center for left heel ulcer. Patient had been having treatment at the wound healing center a couple of months ago. Due to other health issues, being in and out of different hospitals and nursing homes, the patient has not been able to follow up here. She saw Dr. Gomez again last week for this issue, and he referred her back to the wound healing center again. She has been keeping the area dressed daily. She also relates that she has been doint her best to keep all pressure off of her left heel, but says at times she still does have pressure to the area. Progress of Wound: Ulcer to left heel appears healed today. Patient currently denies any feelings of nausea, vomiting, fever, chills. - Physical Exam Vital Signs Temp Pulse Resp BP 97.5 F L 63 18 126/82 H 02/14/19 08:57 02/14/19 08:57 02/14/19 08:57 02/14/19 08:57 General: Alert, Oriented x3, Cooperative, No apparent distress Extremities: No cyanosis, Capillary Refill Less than 3 Seconds, No Calf Tenderness - Negative Angella and Pinto signs bilateral, Edema - Mild lower extremity, Peripheral Pulses Normal Skin: Ulcer/ Wound - Ulcer site appears healed today with no surrounding signs of local infection appreciated. Wound Measurements and Assessment WC - Nurse 1 - General Ulcer Measurement Start: 01/31/19 09:09 Freq: Status: Active Protocol: Activity Type Activity Date Activity User E-Sign Co-Sign Detail Recorded Client Recorded Date Recorded By Document 02/14/19 08:57 BS [id number] 02/14/19 09:02 BS 02/14/19 08:57 Wound Center Nurse 1 [Ulcer Assessment] #4 L calcaneus -Combined with other wound No -Current Size (cm) - Length 0.1 -Current Size (cm) - Width 0.1 -Current Size (cm) - Depth 0.1 -Total Square Cm 0.01 -Photo Taken No -Moisture (Joan-wound Skin Appearance Assessed,Dry/ ) Scaly -Color (Joan-wound Skin Appearance) Assessed -Tenderness on Palpation (Joan-wound No Skin Appearance) -Ulcer Cleansing Rinsed/ Irrigated with Saline -Foul Odor after Cleansing No WC - Nurse 2 - General Ulcer CM Notes Start: 01/31/19 09:09 Freq: Status: Active Protocol: Activity Type Activity Date Activity User E-Sign Co-Sign Detail Recorded Client Recorded Date Recorded By Document 02/14/19 09:17 AN [id number] 02/14/19 09:17 AN 02/14/19 09:17 Pain Scale: 0-10 Numeric [Pain] -Is Patient Pain Free? Yes Musculoskeletal: No Tenderness to Palpation of Joints or Extremities Neurological: - - Epicritic sensation grossly absent to bilateral lower extremities Psych/Mental Status: Normal Affect, Appropriate Debridement Note Post-Debridement Measurements/Treatment WC - Nurse 2 - General Ulcer CM Notes Start: 01/31/19 09:09 Freq: Status: Active Protocol: Activity Type Activity Date Activity User E-Sign Co-Sign Detail Recorded Client Recorded Date Recorded By Document 01/31/19 09:17 AN [id number] 01/31/19 09:18 AN Document 02/07/19 08:33 AN [id number] 02/07/19 08:35 AN Document 02/14/19 09:17 AN [id number] 02/14/19 09:17 AN 01/31/19 02/07/19 02/14/19 09:17 08:33 09:17 Wound Center Nurse 2 #4 L calcaneus -Time 09:18 08:34 -Correct Patient Yes Yes -Correct Side, Site, Position Yes Yes -Correct Procedure Yes Yes -Procedure Performed Yes Yes -Type of Procedure Debridement Debridement -Clinical Debridement Subcutaneous Subcutaneous -Post Debridement Size (cm) - Length 0.5 0.1 -Post Debridement Size (cm) - Width 0.3 0.1 -Post Debridement Size (cm) - Depth 0.1 0.1 -Total Square Cm 0.15 0.01 -Wound/Ulcer Outcome Not Healed Not Healed -Ulcer Cleansing Rinsed/ Rinsed/ Irrigated with Irrigated with Saline Saline -Foul Odor after Cleansing No No -Bioengineered Tissue No No -Bleeding Controlled with Pressure Pressure -Offloading Yes Yes -Treatment Response Procedure Procedure Tolerated Well Tolerated Well Pain Scale: 0-10 Numeric Is Patient Pain Free? Yes Yes Yes No debridement was completed today Assessment/Plan Active Problems (Last Reviewed 12/13/18 @ 21:23 by Gen Butt MD) Non-compliance (Acute) Assessment: Diabetic ulcer left heel. DM 2 with neuropathy. Other comorbidities Plan: Patient was carefully examined and evaluated again today. Ulcer site to left heel appears healed today with no surrounding signs of local infection appreciated. The patient was instructed to keep the left heel offloaded at all times while seated or laying down for the next week or 2 in order to allow the skin to continue to strengthen and heel. From that point she is to slowly increase activity in a gradual manner over the course of 2 or 3 weeks with close monitoring of her feet to make sure there are no areas of new breakdown. She has a new motorized wheelchair that she can use to help keep the area offloaded. I continue to recommend a diet high in protein to help optimize ulcer healing potential. The patient was educated on all signs and symptoms of local and systemic infection, and she was instructed to go to the emergency room immediately should she notice any of these. All other questions were answered to the patient's satisfaction today. The patient will be discharged from the wound healing center at this time, but was instructed to follow-up if needed for any reason.
== END 2019-02-25 23:59 ==
LOC: WC 09:00
PROVIDERS: Family Provider Family Medicine; PCP Family Medicine; Visit Provider Podiatrist
DX: E11.621 Type 2 diabetes mellitus with foot ulcer (principal); E11.42 Type 2 diabetes mellitus with diabetic polyneuropathy; R60.0 Localized edema; Z91.19 Patient's noncompliance with other medical treatment and regimen; L97.422 Non-pressure chronic ulcer of left heel and midfoot with fat layer exposed
CPT/HCPCS: 11042; 97597; 99212; G0463

== ENCOUNTER 2019-02-18 11:42 | Emergency (ER) | payer MEDICARE, MEDICAID, SELFPAY ==
[2019-02-18 11:44] VITALS: BP 135/84; PULSE 82; RESP 17; TEMP 36.8; O2SAT 97; BMI 39.6
[2019-02-18 13:06] LABS: Mucous, Urine 0 SEEN /hpf (<or=2+)
[2019-02-18 13:08] LABS: Color, Urine Yellow (Yellow); Glucose, Dipstick 50 mg/dl (Normal); Ketone-Dipstick Negative (Negative); Leukocyte Esterase-Dipstick 500 /ul (Negative); Nitrite-Dipstick Positive (Negative); Occult Blood-Urine 50 /ul (Negative); Protein-Dipstick 100 mg/dl (Negative); Specific Gravity, Urine 1.015 (1.002-1.030); Urine Bilirubin Dipstick Negative (Negative); Urine Clarity Sl. Cloudy (Clear); Urine Urobilinogen 1 mg/dl (Normal)
[2019-02-18 13:14] LABS: Bacteria 1+ /hpf (None Seen); Red Blood Cells-Urine 0-5 SEEN /hpf (0-5); Squamous Epithelial Cells - UA 0-5 SEEN /hpf (5-10); White Blood Cells 25-50 SEEN /hpf (0-5)
[2019-02-18 14:53] VITALS: BP 157/110
--- NOTE | 2019-02-18 14:59 | ED.DEP ---
ED Disposition - Plan for ED Patient: Instructions: Bladder Infection, Female (Adult) Prescriptions: Cephalexin [Keflex] 500 mg PO Q6 #40 capsule Referrals: Will Shukla MD [Primary Care Provider] -
--- NOTE | 2019-02-18 15:01 | ED.DCSUM_ITS ---
- ER Visit Summary Date of Service: 02/18/19 Chief Complaint: Suprapubic pain History of Present Illness: The patient is a 38 F presenting with suprapubic pain. She was concerned that her suprapubic catheter was not draining appropriately. This started today. She has had no blood in the catheter bag. She has appointment with her urologist this week. She denies fever or other complaints. Physical Examination: Vitals are stable. Patient is afebrile. Alert no acute distress. HEENT exam is unremarkable. Neck is supple. Lungs are clear and equal bilaterally. Heart is regular rate and rhythm. Abdomen is soft mild suprapubic tenderness, no guarding or rebound. Suprapubic catheter in place. Extremities are unremarkable. Skin is warm and dry. Remainder of exam is unremarkable. Emergency Department Course and Treatment: [place] bag was changed and catheter is draining appropriately. Bladder scan shows less than 20 cc of urine. Urinalysis shows 25-50 white blood cells, 0-5 red blood cells, 1+ bacteria. Urine culture was sent. Patient was given [place] x1. She is given Keflex and a prescription for Keflex. She is advised to follow-up with her urologist as scheduled this week. Advised return to ED for worsening complaints. Disposition: Discharge home Impression: UTI This note was generated with [employer] dictation software. It may contain incorrect words, spelling, and punctuation that were not noted in review of the chart prior to signing ED Disposition - Plan for ED Patient: Instructions: Bladder Infection, Female (Adult) Prescriptions: Cephalexin [Keflex] 500 mg PO Q6 #40 cap Prescription Printed Referrals: Will Shukla MD [Primary Care Provider] -
[2019-02-18] MEDS: Cephalexin 250 MG Capsule 500 MG PO (15:09)
[2019-02-18] MEDS: HYDROcodone Bitartrate/Apap 5/325 Tablet PO (15:09)
[2019-02-18 15:10] VITALS: BP 137/106
== END 2019-02-18 15:16 | disposition home or self-care (01) ==
LOC: ED 12:20
PROVIDERS: Emergency Provider Emergency Medicine; Family Provider Family Medicine; PCP Family Medicine
DX: N39.0 Urinary tract infection, site not specified (principal); E11.9 Type 2 diabetes mellitus without complications; N31.9 Neuromuscular dysfunction of bladder, unspecified
CPT/HCPCS: 81001; 87077; 87086; 87088; 87186; 99283

== ENCOUNTER 2019-02-26 14:32 | Emergency (ER) | payer MEDICARE, MEDICAID, SELFPAY ==
[2019-02-26 14:33] VITALS: BP 127/92; PULSE 97; RESP 18; TEMP 36.9; O2SAT 97; BMI 39.6
[2019-02-26 14:46] VITALS: TEMP 36.6
--- NOTE | 2019-02-26 15:10 | CT_ITS ---
STUDY: CT PELVIS WITHOUT CONTRAST REASON FOR EXAM: Female, 38 years old. Urinary tract infection, drainage around suprapubic catheter RADIATION DOSAGE (If Supplied By Facility): CTDIvol = ( 28.21 ) mGy, DLP = ( 979.26 ) mGycm TECHNIQUE: Transaxial imaging of the pelvis was performed without oral contrast, and without intravenous administration of contrast material. Individualized dose optimization techniques were used for this CT. COMPARISON: None. FINDINGS: Suprapubic catheter within the bladder. Normal visualized small intestine. Large amount of stool throughout the colon suggestive of constipation. There is no pelvic fluid. 3.2 cm round mass of water attenuation of the left ovary consistent with a corpus luteum cyst. Normal visualized pelvic arteries. Status post repair of umbilical hernia with mesh with a recurrent small infiltrate hernia containing a loop of small bowel but without bowel obstruction. Normal osseous structures. CT/Pelvis without IV Contrast IMPRESSION: 1. Suprapubic catheter in the bladder without adjacent abscess. 2. 3.2 cm left corpus luteum cyst. 3. Suspect constipation. 4. Status post repair of umbilical hernia with mesh with recurrent small umbilical hernia containing a loop of small bowel without bowel obstruction. Electronically Signed: Severino Rand MD at 16:20 EDT Tel , Service support ,
--- NOTE | 2019-02-26 15:11 | ED.VIS.GEN ---
History of Present Illness Chief Complaint: Complaint Detail of Chief Complaint: Pain at suprapubic site Informant: Patient Onset: Weeks Context: Gradual Onset Current Severity: Moderate Maximum Severity: Severe Narrative: Patient presents with pain and drainage at her suprapubic catheter site. She has had ongoing problems with this since it was placed. Her urologist is through [facility]. Catheter is changed every 2 weeks here at the local [facility] and was changed 1 week ago today. She states at that time they told her it looked irritated but not infected. She was given Keflex for UTI. Since that time she had continued pain and further irritation. She reports low-grade fever, but not over 100. She states she had some nausea this morning started vomiting. She states her blood sugars have been well controlled. - Past Medical History (1) Diabetic infection of left foot Status: Acute (2) Chronic back pain Status: Chronic (3) Depression Status: Chronic (4) Diabetes mellitus with neuropathy Status: Chronic (5) Diabetes mellitus, type II Status: Chronic Comment: not well controlled (6) History of migraine Status: Chronic (7) Hydronephrosis of right kidney Status: Chronic Comment: Consult dictated, For now Treat UTI and make sure pt does self cath. Will follow, no need yet for cysto retros etc. But this may change in future 13 Sept Re-admitted consult dictated (8) Neurogenic bladder Status: Chronic (9) Spina bifida aperta of lumbar spine Status: Chronic Comment: s/p surgery x 2 weakness and numbness in legs neurogenic bladder and frequent UTIs Past Medical History - Allergies and Home Meds Allergies/Adverse Reactions: Allergies mushroom Allergy (Verified 02/26/19 14:33) Anaphylaxis peanut Allergy (Verified 02/26/19 14:33) Anaphylaxis Gadolinium-MRI Contrast Medium Adverse Reaction (Verified 02/26/19 14:33) Vomiting Latex, Natural Rubber Adverse Reaction (Verified 02/26/19 14:33) Rash Primary Care Physician: Will Shukla MD [Primary Care Provider] - Prior records reviewed: Yes Past Medical History: - - Reviewed Surgical History: cholecystectomy, - - D&C, lumbar back surgery x2, foot surgery x2, abdominal stoma, ventral hernia repair. Lives: Spouse/ Significant Other Smoking Status: Never smoker - Family History Maternal Family History: Family History (Last Reviewed 12/13/18 @ 21:16 by Gen Butt MD) Mother CVA (cerebral vascular accident) Thyroid disorder Diabetes Hypertension Family History: Reports: Cancer, Diabetes, Hypertension, Stroke Paternal Family History: Family History (Last Reviewed 12/13/18 @ 21:16 by Gen Butt MD) Mother CVA (cerebral vascular accident) Thyroid disorder Diabetes Hypertension Family History: Reports: No pertinent history Sibling Family History: Family History (Last Reviewed 12/13/18 @ 21:16 by Gen Butt MD) Mother CVA (cerebral vascular accident) Thyroid disorder Diabetes Hypertension Family History: Reports: No pertinent history Review of Systems General: Reports: Chills, Fever Eyes: Denies: Visual changes - bilaterally ENT: Denies: Bilateral ear pain Cardiovascular: Denies: Chest pain Respiratory: Denies: Dyspnea, Cough Gastrointestinal: Reports: Abdominal pain, Nausea, Vomiting Musculoskeletal: Reports: Myalgias Skin: Reports: Wounds - Chronic left lower extremity wound Hematologic: Denies: Easy bruising Allergy: Denies: Uticaria Physical Exam Vital Signs/Narrative: Vital Signs Temp Pulse Resp BP Pulse Ox 02/26/19 14:46 98 F 02/26/19 14:33 98.4 F 97 18 127/92 H 97 Inital Vital Signs reviewed: Yes General: Well nourished, Well developed Head: Normocephalic ENT: Moist mucous membranes Neck: Supple Cardiovascular: Regular rate, Regular rhythm Respiratory: No distress, CTA bilaterally Abdomen: Soft, Tender - Tenderness around suprapubic site. She has failed drainage on the dressing. Wound is irritated but no evidence of cellulitis at this time. Skin: - - As above Neurological: Alert, Oriented x3 Psychological: Normal affect Diagnostic/Tx/Re-eval Impressions Pelvis CT 02/26/19 15:10 IMPRESSION: 1. Suprapubic catheter in the bladder without adjacent abscess. 2. 3.2 cm left corpus luteum cyst. 3. Suspect constipation. 4. Status post repair of umbilical hernia with mesh with recurrent small umbilical hernia containing a loop of small bowel without bowel obstruction. Electronically Signed: Severino Rand MD at 16:20 EDT Tel , Service support , 02/26/19 15:10 CT Pel [Pelvis without IV Contrast] [CT] Stat Laboratory Results 02/26/19 02/26/19 02/26/19 15:35 15:35 15:55 WBC 15.5 H RBC 4.50 Hgb 12.9 Hct 40.3 MCV 89.6 MCH 28.7 MCHC 32.0 RDW Std Deviation 45.4 H RDW Coeff of Claude 13.9 Plt Count 222 MPV 10.7 Immature Gran % (Auto) 0.800 Neut % (Auto) 72.1 H Lymph % (Auto) 13.5 L [place] % (Auto) 7.0 Eos % (Auto) 5.9 H Baso % (Auto) 0.7 Absolute Neuts (auto) 11.2 H Absolute Lymphs (auto) 2.09 Nucleated RBC % 0 Sodium 134 L Potassium 4.0 Chloride 101 Carbon Dioxide 25.0 Anion Gap 8 BUN 11 Creatinine 1.00 Estim Creat Clear Calc 60.92 Est GFR (MDRD) Af Amer 80 Est GFR (MDRD) Non-Af 66 BUN/Creatinine Ratio 11.0 Glucose 187 H Calcium 9.7 Urine Color Yellow Urine Clarity Sl. Cloudy Urine pH 7.0 Ur Specific [place] 1.010 Urine Protein Negative Urine Glucose (UA) Normal Urine Ketones Negative Urine Occult Blood 25 H Urine Nitrite Negative Urine Bilirubin Negative Urine Urobilinogen Normal Ur Leukocyte Esterase 500 H Urine RBC 0-5 SEEN Urine WBC 5-10 SEEN Ur Squamous Epith Cells 5-10 SEEN Amorphous Sediment 1+ PHOS Urine Bacteria 1+ Urine Mucus 0 SEEN Urine Test Negative - Medical Decision Making She was given morphine and Zofran for pain. Test results are discussed with her. We will redress her suprapubic catheter site with gauze pads that are cut to go around her catheter so that it is not laying against her skin and causing further irritation. We will add Bactrim to her current Keflex. She was advised there was no abscess at the site. She will follow-up with her urologist next week as scheduled. ED Disposition - Plan for ED Patient: Disposition: Home or Assisted Living Diagnosis: Encounter for wound re-check Instructions: POST OP WOUND CHECK, Pain Prescriptions: Smz/Tmp Ds [Bactrim Ds] 1 tablet PO BID #10 tablet Hydrocodone Bitart/Apap 5-325 [[place] 5MG-325MG] 1 tablet PO Q6H PRN PRN 3 Days #10 tablet PRN Reason: Pain Referrals: Will Shukla MD [Primary Care Provider] - Amari Box [NON-STAFF] - Keep Mireya appointment
[2019-02-26] MEDS: 0.9% Normal Saline 1,000 ML 150 ML IV (15:47)
[2019-02-26] MEDS: Morphine 4 MG/ML Syringe IV (15:47)
[2019-02-26] MEDS: Ondansetron 4 MG/2 ML Vial IV (15:48)
[2019-02-26 16:00] LABS: Mucous, Urine 0 SEEN /hpf (<or=2+)
[2019-02-26 16:01] LABS: Absolute Lymphocyte Count 2.09 X10^3/uL (0.83-4.51); Absolute Neutrophil Count 11.2 X10^3/uL (2.0-7.7); Basophil# 0.11 X10^3/uL; Basophil% 0.7 % (0-1); Eosinophil# 0.92 X10^3/uL; Eosinophils% 5.9 % (0-5); Hematocrit 40.3 % (37-47); Hemoglobin 12.9 g/dL (12.0-15.0); Lymphocyte # 2.09 X10^3/ul (4.0); Lymphocyte % 13.5 % (19-41); Mean Corpuscular Hgb 28.7 pg (27.0-32.0); Mean Corpuscular Volume 89.6 fL (81-99); Mean Platelet Vol. 10.7 fl (6.2-12.0); Monocyte# 1.08 X10^3/uL; NRBC Flagged by Analyzer 0 % (0-5); Neutrophil # 11.15 X10^3/uL (2.7-7.7); Neutrophil % 72.1 % (47-70); Platelet Count 222 K/mm3 (150-450); RBC Distribution Width CV 13.9 % (11.6-14.6); RBC Distribution Width SD 45.4 fl (35.1-43.9); White Blood Count 15.5 K/mm3 (4.4-11.0)
[2019-02-26 16:02] LABS: BUN 11 mg/dL (7-18); Calcium,Total 9.7 mg/dL (8.5-10.1); Chloride 101 mmol/L (98-107); EST Glomerular Filtration Rate 66 mL/min (>60); Est Glom Filt Rate - Afr Amer 80 mL/min (>60); Estimated Creatinine Clearance 60.92 ml/min; Glucose 187 mg/dL (74-106); Sodium Level 134 mmol/L (136-145)
[2019-02-26 16:03] LABS: Anion Gap 8 (5-15)
[2019-02-26 16:09] LABS: Color, Urine Yellow (Yellow); Glucose, Dipstick Normal (Normal); Ketone-Dipstick Negative (Negative); Leukocyte Esterase-Dipstick 500 /ul (Negative); Nitrite-Dipstick Negative (Negative); Occult Blood-Urine 25 /ul (Negative); Protein-Dipstick Negative (Negative); Urine Bilirubin Dipstick Negative (Negative); Urine Clarity Sl. Cloudy (Clear); Urine Urobilinogen Normal (Normal)
[2019-02-26 16:12] LABS: Internal QC Validated? YES +Cl - CLEAR BKGD; Pregnancy, Urine Negative Negative
[2019-02-26 16:17] LABS: Red Blood Cells-Urine 0-5 SEEN /hpf (0-5); Squamous Epithelial Cells - UA 5-10 SEEN /hpf (5-10); White Blood Cells 5-10 SEEN /hpf (0-5)
[2019-02-26 16:18] LABS: Amorphous Sediment 1+ PHOS; Bacteria 1+ /hpf (None Seen)
== END 2019-02-26 17:12 | disposition home or self-care (01) ==
PROVIDERS: Emergency Provider Emergency Medicine; Family Provider Family Medicine; PCP Family Medicine
DX: Z48.00 Encounter for change or removal of nonsurgical wound dressing (principal); E11.40 Type 2 diabetes mellitus with diabetic neuropathy, unspecified; N31.9 Neuromuscular dysfunction of bladder, unspecified; F32.9 Major depressive disorder, single episode, unspecified; G89.29 Other chronic pain; K42.9 Umbilical hernia without obstruction or gangrene; Z82.49 Family history of ischemic heart disease and other diseases of the circulatory system; Z90.49 Acquired absence of other specified parts of digestive tract; Z91.040 Latex allergy status; Z87.440 Personal history of urinary (tract) infections; Q05.7 Lumbar spina bifida without hydrocephalus
CPT/HCPCS: 72192; 80048; 81001; 81025; 85025; 87077; 87086; 87088; 87186; 99283; J7030; A4216; J2405

== ENCOUNTER 2019-03-01 11:26 | Emergency (ER) | payer MEDICARE, MEDICAID, SELFPAY ==
[2019-02-28 08:47] VITALS: BMI 39.6
[2019-03-01 11:27] VITALS: BP 142/74; PULSE 80; RESP 17; TEMP 36.7; O2SAT 99; BMI 39.6
[2019-03-01 11:35] VITALS: BP 142/74; PULSE 80; RESP 17; TEMP 36.6; O2SAT 98
[2019-03-01 12:05] LABS: Bedside Glucose 171 mg/dL (70-110)
--- NOTE | 2019-03-01 12:23 | RAD_ITS ---
STUDY: X-RAY - LEFT FOOT CLINICAL: Female, 38 years old. Increased left foot pain. New wound at bottom of foot/heel. History of neuropathy. TECHNIQUE: 3 view(s) of the foot. COMPARISON: 3 views of the left foot on 4 images January 10, 2019 FINDINGS: There is a stable enthesophyte involving the posterior superior calcaneus at the site of insertion of the Achilles tendon. Normal talus and remaining tarsal bones. Normal visualized subtalar, talonavicular, calcaneocuboid, tarsal and tarsometatarsal articulations. Normal 1-4 metatarsi. Absence/prior amputation of the distal fifth metatarsal again noted. There is a stable hallux valgus deformity. Normal tibial and fibular sesamoid bones. Normal interphalangeal joint of the great toe. Normal phalanges of the great toe. There are stable but progressively increasing degrees of valgus deviation at the second through fourth metatarsophalangeal joints. The toes are all held in moderate flexion, but the interphalangeal joints and phalanges of the lesser toes are grossly unremarkable. There is notable soft tissue swelling of the forefoot, extending into the toes. Mild irregularity of the cutaneous margin of the heel consistent with an open wound. There is no demonstrated periosteal reaction, cortical destructive lesion, or acute fracture. RAD/Foot min 3 Views IMPRESSION: 1. Open wound at the posterior aspect of the heel as well as stable soft tissue swelling of the forefoot extending into the toes. 2. No findings of osteomyelitis or acute fracture. 3. Prior partial infiltration of the fifth metatarsal again noted. Stable valgus deviation of 13 degree at the 1-4 metatarsophalangeal joints. Electronically Signed: Jarod Sweeney MD at 14:12 EDT , Service support ,
[2019-03-01 12:30] VITALS: BP 142/74; PULSE 80; RESP 17; TEMP 36.6; O2SAT 98
[2019-03-01 12:30] LABS: Erythrocyte Sedimentation Rate 62 mm/hr (0-20)
[2019-03-01 12:32] LABS: Absolute Lymphocyte Count 1.89 X10^3/uL (0.83-4.51); Absolute Neutrophil Count 8.6 X10^3/uL (2.0-7.7); Basophil% 0.8 % (0-1); Eosinophil# 0.92 X10^3/uL; Eosinophils% 7.4 % (0-5); Hematocrit 38.6 % (37-47); Hemoglobin 12.4 g/dL (12.0-15.0); Lymphocyte # 1.89 X10^3/ul (4.0); Lymphocyte % 15.2 % (19-41); Mean Corp Hgb Conc 32.1 g/dL (32-36); Mean Corpuscular Hgb 29.6 pg (27.0-32.0); Mean Corpuscular Volume 92.1 fL (81-99); Mean Platelet Vol. 10.8 fl (6.2-12.0); Monocyte# 0.87 X10^3/uL; NRBC Flagged by Analyzer 0 % (0-5); Neutrophil # 8.57 X10^3/uL (2.7-7.7); Neutrophil % 68.7 % (47-70); Platelet Count 166 K/mm3 (150-450); RBC Distribution Width CV 13.6 % (11.6-14.6); RBC Distribution Width SD 46.4 fl (35.1-43.9); Red Blood Count 4.19 M/mm3 (4.2-5.4); White Blood Count 12.5 K/mm3 (4.4-11.0)
[2019-03-01 12:41] LABS: Anion Gap 4 (5-15); BUN 12 mg/dL (7-18); BUN/Creat Ratio 14.4 RATIO (10-20); Calcium,Total 8.8 mg/dL (8.5-10.1); Chloride 107 mmol/L (98-107); Creatinine, Serum 0.83 mg/dL (0.55-1.02); EST Glomerular Filtration Rate 82 mL/min (>60); Est Glom Filt Rate - Afr Amer 99 mL/min (>60); Glucose 173 mg/dL (74-106); Sodium Level 134 mmol/L (136-145)
--- NOTE | 2019-03-01 12:56 | ED.VIS.GEN ---
History of Present Illness Chief Complaint: Wound Informant: Patient Onset: Days - Onset of wound last February 21. She denies fever chills. She does report blood from wound. Context: Sudden Onset Timing: Continuous Quality: Pain left heel Location: Left heel Current Severity: Mild Maximum Severity: Moderate Worsened by: Weightbearing Relieved by: Nothing Associated Symptoms: No paresthesia, anesthesia or purulent drainage Narrative: Patient is a 38-year-old female with diabetes who was instructed to come to the emergency department for evaluation because of left heel pain. She has a wound that was first noted February 21. She states she noted blood on her sock. She denies fever or chills. She does report slightly elevated blood sugar. She reports dysuria, frequency, urgency or hematuria. She denies polydipsia or polyuria. Prior similar symptoms: Yes - He was discharged from the wound center 2 weeks ago Recent Illness/Hospitalization: Yes - Past Medical History (1) Decubitus ulcer of left heel Status: Acute (2) Diabetic infection of left foot Status: Acute (3) Non-compliance Status: Acute (4) Chronic back pain Status: Chronic (5) Constipation Status: Chronic (6) Depression Status: Chronic (7) Diabetes mellitus with neuropathy Status: Chronic (8) History of migraine Status: Chronic (9) Hydronephrosis of right kidney Status: Chronic Comment: Consult dictated, For now Treat UTI and make sure pt does self cath. Will follow, no need yet for cysto retros etc. But this may change in future 13 Sept Re-admitted consult dictated (10) Lower extremity edema Status: Chronic (11) Neurogenic bladder Status: Chronic (12) Neurogenic bowel Status: Chronic (13) Spina bifida aperta of lumbar spine Status: Chronic Comment: s/p surgery x 2 weakness and numbness in legs neurogenic bladder and frequent UTIs Past Medical History - Allergies and Home Meds Allergies/Adverse Reactions: Allergies mushroom Allergy (Verified 03/01/19 11:27) Anaphylaxis peanut Allergy (Verified 03/01/19 11:27) Anaphylaxis Gadolinium-MRI Contrast Medium Adverse Reaction (Verified 03/01/19 11:27) Vomiting Latex, Natural Rubber Adverse Reaction (Verified 03/01/19 11:27) Rash Primary Care Physician: Will Shukla MD [Primary Care Provider] - Surgical History: cholecystectomy, - - D&C, lumbar back surgery x2, foot surgery x2, abdominal stoma, ventral hernia repair. Smoking Status: Never smoker - Family History Maternal Family History: Family History (Last Reviewed 12/13/18 @ 21:16 by Gen Butt MD) Mother CVA (cerebral vascular accident) Thyroid disorder Diabetes Hypertension Family History: Reports: Cancer, Diabetes, Hypertension, Stroke Paternal Family History: Family History (Last Reviewed 12/13/18 @ 21:16 by Gen Butt MD) Mother CVA (cerebral vascular accident) Thyroid disorder Diabetes Hypertension Family History: Reports: No pertinent history Sibling Family History: Family History (Last Reviewed 12/13/18 @ 21:16 by Gen Butt MD) Mother CVA (cerebral vascular accident) Thyroid disorder Diabetes Hypertension Family History: Reports: No pertinent history Review of Systems General: Denies: Chills, Fever, Malaise, Sweats Eyes: Denies: Visual changes - bilaterally, Blurred Vision - bilaterally ENT: Denies: Right ear pain, Rhinorrhea Cardiovascular: Denies: Chest pain, Palpitations Respiratory: Denies: Dyspnea, Cough, Dyspnea on exertion Gastrointestinal: Denies: Abdominal pain, Nausea, Vomiting, Diarrhea, Melena, Hematochezia Genitourinary: Denies: Dysuria, Hematuria, Frequency Musculoskeletal: Reports: Extremity Pain. Denies: Myalgias, Arthralgias, Neck pain, Back pain, Swelling Skin: Reports: Rash, Wounds Neurological: Denies: Headache, Weakness Endocrine: Denies: Polyuria, Polydipsia Physical Exam Vital Signs/Narrative: Vital Signs Temp Pulse Resp BP Pulse Ox 03/01/19 12:30 98 F 80 17 142/74 H 98 03/01/19 11:35 98 F 80 17 142/74 H 98 03/01/19 11:27 98.0 F 80 17 142/74 H 99 Inital Vital Signs reviewed: Yes General: Well nourished, Well developed, No Acute Distress Head: Normocephalic, Atraumatic Eyes: Perrl, EOMI. Negative for: Pale conjunctiva, Scleral icterus ENT: Moist mucous membranes, No rhinorrhea Neck: Supple, Nontender, No lymphadenopathy, No JVD Cardiovascular: Regular rate, Regular rhythm, No murmurs, Normal S1, Normal S2 Respiratory: No distress, CTA bilaterally, Chest nontender Extremities: No edema, Tenderness - Left heel. Negative for: Nontender Skin: Normal color, No rash, - - There is breakdown of skin with granulation tissue noted. There is no erythema, warmth, fluctuance, lymphangitis or popliteal lymphadenopathy. Neurological: Alert, Oriented x3. Negative for: Normal Strength, Normal Sensation, Normal DTR, Normal Gait Psychological: Depressed Diagnostic/Tx/Re-eval Chest X-Ray - ED: Read by ED Physician, - - Three-view x-ray of the foot reveals no soft tissue swelling, foreign body or evidence of subcu severe. Furthermore there is no evidence of osteomyelitis. 03/01/19 12:23 Foot min 3 Views [RAD] Stat Laboratory Results 03/01/19 03/01/19 03/01/19 12:03 12:20 12:20 WBC 12.5 H RBC 4.19 L Hgb 12.4 Hct 38.6 MCV 92.1 MCH 29.6 MCHC 32.1 RDW Std Deviation 46.4 H RDW Coeff of Claude 13.6 Plt Count 166 MPV 10.8 Immature Gran % (Auto) 0.900 Neut % (Auto) 68.7 Lymph % (Auto) 15.2 L Hardeman % (Auto) 7.0 Eos % (Auto) 7.4 H Baso % (Auto) 0.8 Absolute Neuts (auto) 8.6 H Absolute Lymphs (auto) 1.89 Nucleated RBC % 0 ESR 62 H Sodium 134 L Potassium 5.0 Chloride 107 Carbon Dioxide 23.0 Anion Gap 4 L BUN 12 Creatinine 0.83 Estim Creat Clear Calc 73.40 Est GFR (MDRD) Af Amer 99 Est GFR (MDRD) Non-Af 82 BUN/Creatinine Ratio 14.4 Glucose 173 H Calcium 8.8 POC Glucose 171 H White count is slightly elevated. ESR is elevated at 62 which is nonspecific. It is not greater than 100. Blood sugar is elevated at 173. X-ray of the foot interpreted by me reveals no evidence of osteomyelitis or subcutaneous air. - Medical Decision Making Elevated white count is probably secondary to infection. She is presently on levofloxacin and doxycycline. Since there is no signs of sepsis abscess or osteomyelitis patient is appropriate for outpatient treatment. We will have her follow-up at the wound center in the next 48 to 72 hours. ED Disposition - Plan for ED Patient: Disposition: Home or Assisted Living Diagnosis: Open wound of heel, Hyperglycemia due to type 2 diabetes mellitus Instructions: Diabetic Foot Ulcers Referrals: Will Shukla MD [Primary Care Provider] - Clinic,Wound [None] - 3-5 Days Additional Instructions: Take antibiotics your prescribed until gone. Call the wound center today to be seen on Monday at the latest Monday.
[2019-03-01 13:15] VITALS: BP 114/68; PULSE 64; RESP 16; O2SAT 100
--- NOTE | 2019-03-01 13:15 | ED.RN ---
GAUZE DRESSING AND KOMAL BANDAGE PLACE ON PT'S LEFT FOOT WOUND. REVIEWED D/C INSTRUCTIONS, FOLLOW UP CARE, AND S/S THAT WOULD WARRANT A RETURN TO THE ED WITH PT. PT VERBALIZED AN UNDERSTANDING AND DENIES FURTHER QUESTIONS FOR THIS RN. PT SKIN P/W/D, RESP EVEN AND UNLABORED, PT A&O X 3, NO DISTRESS NOTED. PT OUT OF ED IN PERSONAL WHEELCHAIR.
== END 2019-03-01 13:17 | disposition home or self-care (01) ==
PROVIDERS: Emergency Provider Emergency Medicine; Family Provider Family Medicine; PCP Family Medicine
DX: L89.629 Pressure ulcer of left heel, unspecified stage (principal); L08.9 Local infection of the skin and subcutaneous tissue, unspecified; E11.65 Type 2 diabetes mellitus with hyperglycemia; E11.40 Type 2 diabetes mellitus with diabetic neuropathy, unspecified; Q05.7 Lumbar spina bifida without hydrocephalus; G89.29 Other chronic pain; N31.9 Neuromuscular dysfunction of bladder, unspecified; N13.30 Unspecified hydronephrosis; K59.2 Neurogenic bowel, not elsewhere classified; F32.9 Major depressive disorder, single episode, unspecified; R60.0 Localized edema; Z87.440 Personal history of urinary (tract) infections; Z79.84 Long term (current) use of oral hypoglycemic drugs; Z79.899 Other long term (current) drug therapy
CPT/HCPCS: 73630; 80048; 82962; 85025; 85652; 99284; A4216

== ENCOUNTER 2019-03-08 23:19 | Emergency (ER) | payer MEDICARE, MEDICAID, SELFPAY ==
[2019-03-07 08:53] VITALS: BMI 39.6
[2019-03-08 23:20] VITALS: BP 142/78; PULSE 97; RESP 18; TEMP 37.1; O2SAT 97; BMI 39.6
--- NOTE | 2019-03-08 23:35 | ED.VIS.GEN ---
History of Present Illness Chief Complaint: Wound Detail of Chief Complaint: Left heel pain Informant: Patient Onset: Today Context: Sudden Onset Timing: Continuous Quality: Pain Location: Left heel Current Severity: Severe Maximum Severity: Severe Worsened by: Weightbearing Relieved by: Nothing Associated Symptoms: No constitutional symptoms Narrative: Patient is a 38-year-old woman with multiple medical problems including diabetic neuropathy who is presently being seen at the wound center for a wound left heel. She was seen by Dr. Faria on . He informed her that the wound looks better. She complains of severe pain. She was seen on 01 March by me for severe heel pain. She does complain of numbness and paresthesia. She denies fever, chills night sweats. Denies nausea, vomiting diarrhea. She denies blurred vision, polyuria, polydipsia polyphagia. Prior similar symptoms: Yes Recent Illness/Hospitalization: Yes - Past Medical History (1) Decubitus ulcer of left heel Status: Acute (2) Non-compliance Status: Acute (3) Chronic back pain Status: Chronic (4) Depression Status: Chronic (5) Diabetes mellitus with neuropathy Status: Chronic (6) Edema of left lower extremity Status: Chronic (7) History of migraine Status: Chronic (8) Hydronephrosis of right kidney Status: Chronic Comment: Consult dictated, For now Treat UTI and make sure pt does self cath. Will follow, no need yet for cysto retros etc. But this may change in future 13 Sept Re-admitted consult dictated (9) Morbid obesity with BMI of 40.0-44.9, adult Status: Chronic (10) Neurogenic bladder Status: Chronic (11) Neurogenic bowel Status: Chronic (12) Spina bifida aperta of lumbar spine Status: Chronic Comment: s/p surgery x 2 weakness and numbness in legs neurogenic bladder and frequent UTIs Past Medical History - Allergies and Home Meds Allergies/Adverse Reactions: Allergies mushroom Allergy (Verified 03/01/19 11:27) Anaphylaxis peanut Allergy (Verified 03/01/19 11:27) Anaphylaxis Gadolinium-MRI Contrast Medium Adverse Reaction (Verified 03/01/19 11:27) Vomiting Latex, Natural Rubber Adverse Reaction (Verified 03/01/19 11:27) Rash Primary Care Physician: Will Shukla MD [Primary Care Provider] - Prior records reviewed: Yes Surgical History: cholecystectomy, - - D&C, lumbar back surgery x2, foot surgery x2, abdominal stoma, ventral hernia repair. Lives: Spouse/ Significant Other Smoking Status: Never smoker Alcohol: None Drugs: None - Family History Maternal Family History: Family History (Last Reviewed 12/13/18 @ 21:16 by Gen Butt MD) Mother CVA (cerebral vascular accident) Thyroid disorder Diabetes Hypertension Family History: Reports: Cancer, Diabetes, Hypertension, Stroke Paternal Family History: Family History (Last Reviewed 12/13/18 @ 21:16 by Gen Butt MD) Mother CVA (cerebral vascular accident) Thyroid disorder Diabetes Hypertension Family History: Reports: No pertinent history Sibling Family History: Family History (Last Reviewed 12/13/18 @ 21:16 by Gen Butt MD) Mother CVA (cerebral vascular accident) Thyroid disorder Diabetes Hypertension Family History: Reports: No pertinent history Review of Systems General: Denies: Chills, Fever, Malaise, Sweats Eyes: Denies: Visual changes - bilaterally, Blurred Vision - bilaterally, Diplopia ENT: Denies: Bilateral ear pain, Rhinorrhea, Sore throat Cardiovascular: Denies: Chest pain, Palpitations Musculoskeletal: Reports: Extremity Pain. Denies: Myalgias, Arthralgias, Neck pain, Back pain, Swelling Skin: Reports: Wounds. Denies: Rash Neurological: Denies: Headache, Weakness Hematologic: Denies: Easy bruising, Easy bleeding Allergy: Denies: Uticaria, Swelling of the mouth Physical Exam Vital Signs/Narrative: Vital Signs Temp Pulse Resp BP Pulse Ox 03/08/19 23:20 98.7 F 97 18 142/78 H 97 Inital Vital Signs reviewed: Yes General: Well nourished, Well developed, Obese, - - When I entered the examination room she began to cry. She states it was because her significant other was removing the sock on the foot. Head: Normocephalic, Atraumatic Eyes: Perrl, EOMI. Negative for: Pale conjunctiva, Scleral icterus ENT: Moist mucous membranes, No rhinorrhea Neck: Supple, Nontender, No lymphadenopathy Cardiovascular: Regular rate, Regular rhythm Respiratory: No distress Back: Nontender Extremities: No edema, Tenderness - There is over the left heel.. Negative for: Nontender Skin: Normal color, No rash, - - There is a wound left heel that is healing by secondary intention. There is granulation tissue noted. There is no erythema, warmth, fluctuance or lymphangitis. There is no popliteal lymphadenopathy. DP pulses palpable. PT pulses palpable. Neurological: Alert, Oriented x3, Cranial nerves II-XII grossly intact, Normal Strength. Negative for: Normal Sensation Psychological: Tearful Diagnostic/Tx/Re-eval - Medical Decision Making Patient with pain secondary to diabetic neuropathy exacerbated by her wound. The wound is not infected and she was seen yesterday by Dr. Faria who informed her that the wound looks better. Based on my recall of what the wound looks like on the fourth when I saw her the wound has improved. Furthermore, there is no evidence of infection. She is presently taking gabapentin 300 mg 3 times daily. She was given a prescription for gabapentin 300 mg 4 times a day. ED Disposition - Plan for ED Patient: Disposition: Home or Assisted Living Diagnosis: Diabetic neuropathy, painful, Wound healing well on examination Instructions: NEUROPATHY, Peripheral, Wound Care Prescriptions: Gabapentin [Neurontin] 400 mg PO TID #90 cap Transmission Status: Pending to [facility] Referrals: Will Shukla MD [Primary Care Provider] - 1-2 Weeks Additional Instructions: Your prescription was electronically transmitted to [facility].
[2019-03-09] MEDS: HYDROcodone Bitartrate/Apap 5/325 Tablet PO
== END 2019-03-09 00:24 | disposition home or self-care (01) ==
PROVIDERS: Emergency Provider Emergency Medicine; Family Provider Family Medicine; PCP Family Medicine
DX: E11.40 Type 2 diabetes mellitus with diabetic neuropathy, unspecified (principal); L89.629 Pressure ulcer of left heel, unspecified stage; E66.01 Morbid (severe) obesity due to excess calories; F32.9 Major depressive disorder, single episode, unspecified; G89.29 Other chronic pain; K59.2 Neurogenic bowel, not elsewhere classified; Z90.49 Acquired absence of other specified parts of digestive tract; M54.9 Dorsalgia, unspecified; N13.39 Other hydronephrosis; Q05.7 Lumbar spina bifida without hydrocephalus; Z91.040 Latex allergy status; Z91.19 Patient's noncompliance with other medical treatment and regimen; Z68.41 Body mass index [BMI] 40.0-44.9, adult; N31.9 Neuromuscular dysfunction of bladder, unspecified; Z79.899 Other long term (current) drug therapy; Z79.84 Long term (current) use of oral hypoglycemic drugs
CPT/HCPCS: 99283; A4216

== ENCOUNTER 2019-03-14 10:24 | Emergency (ER) | payer MEDICARE, MEDICAID, SELFPAY ==
[2019-03-14 08:09] VITALS: BMI 39.6
[2019-03-14 10:26] VITALS: BP 141/85; PULSE 99; RESP 18; TEMP 36.1; O2SAT 99; BMI 39.6
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
[2019-03-14 11:44] LABS: Absolute Lymphocyte Count 1.17 X10^3/uL (0.83-4.51); Absolute Neutrophil Count 12.6 X10^3/uL (2.0-7.7); Basophil# 0.09 X10^3/uL; Basophil% 0.6 % (0-1); Eosinophil# 0.42 X10^3/uL; Eosinophils% 2.8 % (0-5); Hematocrit 39.7 % (37-47); Hemoglobin 12.9 g/dL (12.0-15.0); Lymphocyte # 1.17 X10^3/ul (4.0); Lymphocyte % 7.7 % (19-41); Mean Corp Hgb Conc 32.5 g/dL (32-36); Mean Corpuscular Hgb 28.9 pg (27.0-32.0); Mean Corpuscular Volume 88.8 fL (81-99); Mean Platelet Vol. 10.6 fl (6.2-12.0); Monocyte# 0.79 X10^3/uL; Monocyte% 5.2 % (0-10); NRBC Flagged by Analyzer 0 % (0-5); Neutrophil # 12.62 X10^3/uL (2.7-7.7); Platelet Count 195 K/mm3 (150-450); RBC Distribution Width CV 13.7 % (11.6-14.6); RBC Distribution Width SD 43.8 fl (35.1-43.9); Red Blood Count 4.47 M/mm3 (4.2-5.4); White Blood Count 15.2 K/mm3 (4.4-11.0)
--- NOTE | 2019-03-14 11:45 | ED.RN ---
delay in medicating d/t pt ratio vs staffing.
[2019-03-14] MEDS: Ondansetron 4 MG/2 ML Vial IV (11:50)
[2019-03-14] MEDS: Ketorolac 15 MG/ML Vial IV (11:50)
[2019-03-14 12:15] LABS: Mucous, Urine 0 SEEN /hpf (<or=2+)
[2019-03-14 12:22] LABS: Anion Gap 7 (5-15); BUN 12 mg/dL (7-18); BUN/Creat Ratio 13.8 RATIO (10-20); Calcium,Total 9.2 mg/dL (8.5-10.1); Chloride 100 mmol/L (98-107); Creatinine, Serum 0.87 mg/dL (0.55-1.02); EST Glomerular Filtration Rate 78 mL/min (>60); Est Glom Filt Rate - Afr Amer 94 mL/min (>60); Estimated Creatinine Clearance 70.02 ml/min; Glucose 225 mg/dL (74-106); Potassium 3.9 mmol/L (3.5-5.1); Sodium Level 134 mmol/L (136-145)
[2019-03-14 12:26] LABS: Color, Urine Yellow (Yellow); Glucose, Dipstick 100 mg/dl (Normal); Ketone-Dipstick Negative (Negative); Leukocyte Esterase-Dipstick 500 /ul (Negative); Nitrite-Dipstick Positive (Negative); Occult Blood-Urine 50 /ul (Negative); Protein-Dipstick 100 mg/dl (Negative); Urine Bilirubin Dipstick Negative (Negative); Urine Clarity Clear (Clear); Urine Urobilinogen 1 mg/dl (Normal)
[2019-03-14 12:33] LABS: White Blood Cells 25-50 SEEN /hpf (0-5)
[2019-03-14 12:34] LABS: Bacteria 1+ /hpf (None Seen); Red Blood Cells-Urine 5-10 SEEN /hpf (0-5); Squamous Epithelial Cells - UA 0-5 SEEN /hpf (5-10)
[2019-03-14 13:19] VITALS: BP 98/55; PULSE 92; RESP 18; O2SAT 100
[2019-03-14] MEDS: Ceftriaxone 1 GM/50 ML BAG IV (13:19)
[2019-03-14 14:09] VITALS: BP 98/55; PULSE 92; RESP 12; O2SAT 100
--- NOTE | 2019-04-12 18:06 | CM.ED ---
Social Work ED Care Plan approved. Garrison RITCHIE, CLARIBEL
== END 2019-03-14 14:25 | disposition home or self-care (01) ==
PROVIDERS: Emergency Provider Emergency Medicine; Family Provider Family Medicine; PCP Family Medicine
DX: N10 Acute pyelonephritis (principal); A41.9 Sepsis, unspecified organism; N31.9 Neuromuscular dysfunction of bladder, unspecified; M54.9 Dorsalgia, unspecified; G89.29 Other chronic pain; F32.9 Major depressive disorder, single episode, unspecified; G43.909 Migraine, unspecified, not intractable, without status migrainosus; K59.2 Neurogenic bowel, not elsewhere classified; L89.629 Pressure ulcer of left heel, unspecified stage; Z87.448 Personal history of other diseases of urinary system; Z87.440 Personal history of urinary (tract) infections; Z96.0 Presence of urogenital implants; Z90.49 Acquired absence of other specified parts of digestive tract; Z79.84 Long term (current) use of oral hypoglycemic drugs; Z79.899 Other long term (current) drug therapy; E11.621 Type 2 diabetes mellitus with foot ulcer; E11.42 Type 2 diabetes mellitus with diabetic polyneuropathy; R60.0 Localized edema; Z91.19 Patient's noncompliance with other medical treatment and regimen; L97.422 Non-pressure chronic ulcer of left heel and midfoot with fat layer exposed; Q05.7 Lumbar spina bifida without hydrocephalus
CPT/HCPCS: 11042; 80048; 81001; 85025; 87077; 87086; 87088; 87186; 96365; 96375; 99283; J7050; A4216; J2405

== ENCOUNTER 2019-03-28 09:45 | Outpatient (RCR) | payer MEDICARE, MEDICAID, SELFPAY ==
[2019-02-26 00:57] VITALS: BP 126/82; PULSE 63; RESP 18; TEMP 36.4
[2019-02-28 08:47] VITALS: BP 119/76; PULSE 71; RESP 18; TEMP 36.2; BMI 39.6
--- NOTE | 2019-02-28 09:26 | PCM.WC.PN ---
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 (2) Type 2 diabetes mellitus with diabetic polyneuropathy Status: Chronic Current Visit: No Code(s): E11.42 - Type 2 diabetes mellitus with diabetic polyneuropathy (3) Delayed wound healing Status: Acute Current Visit: No Code(s): T14.8XXD - Other injury of unspecified body region, subsequent encounter (4) Lower extremity edema Status: Chronic Current Visit: No Code(s): R60.0 - Localized edema (5) Non-compliance Status: Acute Current Visit: No Code(s): Z91.19 - Patient's noncompliance with other medical treatment and regimen Type of Wound Date of Service: 02/28/19 Chief Complaint: left heel ulcer History of Wound: This 38-year-old diabetic female was consulted to the wound healing center for left heel ulcer. Patient had been having treatment at the wound healing center a couple of months ago. Due to other health issues, being in and out of different hospitals and nursing homes, the patient has not been able to follow up here. She saw Dr. Gomez again last week for this issue, and he referred her back to the wound healing center again. She has been keeping the area dressed daily. She also relates that she has been doint her best to keep all pressure off of her left heel, but says at times she still does have pressure to the area. Progress of Wound: A new ulcer to left heel has open today. Patient relates this started about a week ago and is slowly been getting worse. She denies noticing any kind of purulence or drainage to the area. She says she has been trying to keep it dressed on her own. Patient currently denies any feelings of nausea, vomiting, fever, chills. - Physical Exam Vital Signs Temp Pulse Resp BP 97.2 F L 71 18 119/76 02/28/19 08:47 02/28/19 08:47 02/28/19 08:47 02/28/19 08:47 General: Alert, Oriented x3, Cooperative, No apparent distress Extremities: No cyanosis, Capillary Refill Less than 3 Seconds, No Calf Tenderness - Negative Aneglla and Pinto signs bilateral, Edema - Mild lower extremity edema, Peripheral Pulses Normal Skin: Ulcer/ Wound - Ulcer with fat layer exposed left heel. Ulcer site has broken back down to the left heel today. The base is a mixture of adherent slough, devitalized subcutaneous tissue, fibrin, biofilm, granular tissue, and surrounding hyperkeratotic skin. There is no probing to bone, no tracking, no undermining, no purulence, no surrounding or extending cellulitis, no malodor, and no increase in warmth to the ulcer site at this time. There was some slight serous drainage appreciated. Wound Measurements and Assessment WC - Nurse 1 - General Ulcer Measurement Start: 02/28/19 08:47 Freq: Status: Active Protocol: Activity Type Activity Date Activity User E-Sign Co-Sign Detail Recorded Client Recorded Date Recorded By Document 02/28/19 08:47 RB [id number] 02/28/19 08:55 RB 02/28/19 08:47 Wound Center Nurse 1 [Ulcer Assessment] 5. L heel -Combined with other wound No -Current Size (cm) - Length 1 -Current Size (cm) - Width 1 -Current Size (cm) - Depth 0.1 -Total Square Cm 1 -Tunneling No -Undermining/Tunneling No -Circular Undermining No -Exudate Amt Small -Exudate Type Serosanguineous -Wound Margin Distinct, Outline Attached -Granulation Amt Large (67-100%) -Granulation Quality Deweese -Slough/Fibrin Yes -Necrosis Amt Medium (34-66%) -Necrotic Tissue Type Adherent Slough -Structure Exposed N/A -Texture (Joan-wound Skin Appearance) Assessed, Friable -Moisture (Joan-wound Skin Appearance Assessed ) -Color (Joan-wound Skin Appearance) Assessed -Temperature (Joan-wound Skin No Abnormality Appearance) (Pt Warm) -Tenderness on Palpation (Joan-wound No Skin Appearance) -Ulcer Cleansing Wound Cleanser -Foul Odor after Cleansing No -Anesthetic Used 5% Lidocaine Gel [Edema Assessment] -Lower Limb Edema Present Yes -Left Calf (cm) 49.5 -Left Ankle (cm) 27 - Nurse 2 - General Ulcer CM Notes Start: 02/28/19 08:47 Freq: Status: Active Protocol: Activity Type Activity Date Activity User E-Sign Co-Sign Detail Recorded Client Recorded Date Recorded By Document 02/28/19 08:57 AN [id number] 02/28/19 09:14 AN 02/28/19 08:57 Wound Center Nurse 2 [Procedure/Treatment] 5. L heel -Time 08:58 -Correct Patient Yes -Correct Side, Site, Position Yes -Correct Procedure Yes -Procedure Performed Yes -Type of Procedure Debridement -Clinical Debridement Subcutaneous -Post Debridement Size (cm) - Length 4 -Post Debridement Size (cm) - Width 3 -Post Debridement Size (cm) - Depth 0.3 -Total Square Cm 12 -Wound/Ulcer Outcome Not Healed -Ulcer Cleansing Rinsed/ Irrigated with Saline -Foul Odor after Cleansing No -Bioengineered Tissue No -Bleeding Controlled with Pressure -Offloading Yes -Type of Offloading Camwalker -Treatment Response Procedure Tolerated Well [See Physician Procedure note for Specifics] Pain Scale: 0-10 Numeric [Pain] -Is Patient Pain Free? Yes Musculoskeletal: No Tenderness to Palpation of Joints or Extremities Neurological: - - Epicritic sensation grossly absent to bilateral lower extremities Psych/Mental Status: Normal Affect, Appropriate Debridement Note Post-Debridement Measurements/Treatment WC - Nurse 2 - General Ulcer CM Notes Start: 02/28/19 08:47 Freq: Status: Active Protocol: Activity Type Activity Date Activity User E-Sign Co-Sign Detail Recorded Client Recorded Date Recorded By Document 02/28/19 08:57 AN [id number] 02/28/19 09:14 AN 02/28/19 08:57 Wound Center Nurse 2 5. L heel -Time 08:58 -Correct Patient Yes -Correct Side, Site, Position Yes -Correct Procedure Yes -Procedure Performed Yes -Type of Procedure Debridement -Clinical Debridement Subcutaneous -Post Debridement Size (cm) - Length 4 -Post Debridement Size (cm) - Width 3 -Post Debridement Size (cm) - Depth 0.3 -Total Square Cm 12 -Wound/Ulcer Outcome Not Healed -Ulcer Cleansing Rinsed/ Irrigated with Saline -Foul Odor after Cleansing No -Bioengineered Tissue No -Bleeding Controlled with Pressure -Offloading Yes -Type of Offloading Camwalker -Treatment Response Procedure Tolerated Well Pain Scale: 0-10 Numeric Is Patient Pain Free? Yes Wound debrided: Left heel Laterality: Left Type of Debridement: Excisional debridement Anesthesia Used: 5% Lidocaine Gel Depth: in the subcutaneous layer Percentage of wound debrided: 100 Instrument Used: #15 blade, - - Tissue nipper Tissue Removed: Devitalized subcutaneous tissue, adherent slough, fibrin, biofilm Severity: Fat Layer Exposed Amount of bleeding with debridement: Mild Bleeding Controlled with: Pressure Patient tolerated procedure well Assessment/Plan Assessment: Diabetic ulcer left heel. DM 2 with neuropathy. Other comorbidities Plan: Patient was carefully examined and evaluated again today after re-ulceration to the left heel approximately 1 week ago. A subcutaneous debridement was performed as noted in the clinical panel. Once complete, the ulcer site was carefully cleansed and then dressed with Aquacel Ag to the base followed by dry sterile dressing. The patient is to have the dressing change in this manner on a daily basis. This patient has been noncompliant with keeping pressure off of her left heel at all times while seated or laying. I do not feel she slowly worked her way up back to activity while keeping a close eye on the area as she was instructed to do. The patient was instructed to keep the left heel offloaded at all times while seated or laying down. I stressed the importance of this and the patient's healing. She is to continue with offloading CAM Walker to the left side. She is to continue use of her motorized wheelchair. She is to keep the heel floated completely with nothing under it except air. I continue to recommend a diet high in protein to help optimize ulcer healing potential. The patient was educated on all signs and symptoms of local and systemic infection, and she was instructed to go to the emergency room immediately should she notice any of these. All other questions were answered to the patient's satisfaction today. The patient will follow back up in clinic in 1 week to check on progress, or sooner if needed before then.
[2019-02-28 14:47] LABS: M R Staph aureus DNA By PCR Negative (Negative); Probe Check PASS; Specimen Processing Control PASS; Staph aureus DNA By PCR POSITIVE (Negative)
[2019-03-07 08:53] VITALS: BP 120/72; PULSE 88; RESP 18; TEMP 36.2; BMI 39.6
--- NOTE | 2019-03-07 09:24 | PN.PCM_ITS ---
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 (2) Type 2 diabetes mellitus with diabetic polyneuropathy Status: Chronic Current Visit: No Code(s): E11.42 - Type 2 diabetes mellitus with diabetic polyneuropathy (3) Delayed wound healing Status: Acute Current Visit: No Code(s): T14.8XXD - Other injury of unspecified body region, subsequent encounter (4) Lower extremity edema Status: Chronic Current Visit: No Code(s): R60.0 - Localized edema (5) Non-compliance Status: Acute Current Visit: No Code(s): Z91.19 - Patient's noncompliance with other medical treatment and regimen Type of Wound Date of Service: 03/07/19 Chief Complaint: left heel ulcer History of Wound: This 38-year-old diabetic female was consulted to the wound healing center for left heel ulcer. Patient had been having treatment at the wound healing center a couple of months ago. Due to other health issues, being in and out of different hospitals and nursing homes, the patient has not been able to follow up here. She saw Dr. Gomez again last week for this issue, and he referred her back to the wound healing center again. She has been keeping the area dressed daily. She also relates that she has been doint her best to keep all pressure off of her left heel, but says at times she still does have pressure to the area. Progress of Wound: Patient presents for follow-up of left heel ulcer today. Site appears much improved since last week. Patient currently denies any feelings of nausea, vomiting, fever, chills. - Physical Exam Vital Signs Temp Pulse Resp BP 97.1 F L 88 18 120/72 03/07/19 08:53 03/07/19 08:53 03/07/19 08:53 03/07/19 08:53 General: Alert, Oriented x3, Cooperative, No apparent distress Extremities: No cyanosis, Capillary Refill Less than 3 Seconds, No Calf Tenderness - Negative Angella and Pinto signs bilateral, Edema - Mild lower extremity edema, Peripheral Pulses Normal Skin: Ulcer/ Wound - Ulcer with fat layer exposed left heel. Improvement noted since last week. The base is a mixture of adherent slough, devitalized subcutaneous tissue, fibrin, biofilm, granular tissue, and surrounding hyperkeratotic skin. There is no probing to bone, no tracking, no undermining, no purulence, no surrounding or extending cellulitis, no malodor, and no increase in warmth to the ulcer site at this time. Wound Measurements and Assessment - Nurse 1 - General Ulcer Measurement Start: 02/28/19 08:47 Freq: Status: Active Protocol: Activity Type Activity Date Activity User E-Sign Co-Sign Detail Recorded Client Recorded Date Recorded By Document 03/07/19 08:59 AN [id number] 03/07/19 09:07 AN 03/07/19 08:59 Wound Center Nurse 1 [Ulcer Assessment] 5. L heel -Current Size (cm) - Length 3.0 -Current Size (cm) - Width 3.0 -Current Size (cm) - Depth 0.2 -Total Square Cm 9.00 -Photo Taken No -Epithelialization None Present -Tunneling No -Undermining/Tunneling No -Circular Undermining No -Exudate Amt Medium -Exudate Type Serosanguineous -Wound Margin Flat & Intact -Granulation Amt None Present (0 %) -Granulation Quality N/A -Slough/Fibrin Yes -Necrosis Amt Large (67-100%) -Necrotic Tissue Type Adherent Slough -Structure Exposed None/Limited to Skin Breakdown -Texture (Joan-wound Skin Appearance) Assessed, Scarring -Moisture (Joan-wound Skin Appearance Assessed,Dry/ ) Scaly -Color (Joan-wound Skin Appearance) No Abnormality, Assessed -Temperature (Joan-wound Skin No Abnormality Appearance) (Pt Warm) -Ulcer Cleansing Rinsed/ Irrigated with Saline -Foul Odor after Cleansing No -Anesthetic Used 4% Lidocaine Solution,5% Lidocaine Gel - Nurse 2 - General Ulcer CM Notes Start: 02/28/19 08:47 Freq: Status: Active Protocol: Activity Type Activity Date Activity User E-Sign Co-Sign Detail Recorded Client Recorded Date Recorded By Document 03/07/19 09:14 AN [id number] 03/07/19 09:22 AN 03/07/19 09:14 Wound Center Nurse 2 [Procedure/Treatment] -Time 09:14 -Correct Patient Yes -Correct Side, Site, Position Yes -Correct Procedure Yes -Procedure Performed Yes -Type of Procedure Debridement -Clinical Debridement Subcutaneous -Post Debridement Size (cm) - Length 2.9 -Post Debridement Size (cm) - Width 2.7 -Post Debridement Size (cm) - Depth 0.2 -Total Square Cm 7.83 -Wound/Ulcer Outcome Not Healed -Ulcer Cleansing Rinsed/ Irrigated with Saline -Foul Odor after Cleansing No -Bioengineered Tissue No -Bleeding Controlled with Pressure -Offloading Yes -Type of Offloading Camwalker -Treatment Response Procedure Tolerated Well [See Physician Procedure note for Specifics] Pain Scale: 0-10 Numeric [Pain] -Is Patient Pain Free? Yes Musculoskeletal: No Tenderness to Palpation of Joints or Extremities, - - Improving tenderness with ulcer site manipulation Neurological: - - Epicritic sensation grossly absent to bilateral lower extremities Psych/Mental Status: Normal Affect, Appropriate Debridement Note Post-Debridement Measurements/Treatment WC - Nurse 2 - General Ulcer CM Notes Start: 02/28/19 08:47 Freq: Status: Active Protocol: Activity Type Activity Date Activity User E-Sign Co-Sign Detail Recorded Client Recorded Date Recorded By Document 02/28/19 08:57 AN [id number] 02/28/19 09:14 AN Document 03/07/19 09:14 AN [id number] 03/07/19 09:22 AN 02/28/19 03/07/19 08:57 09:14 Wound Center Nurse 2 5. L heel -Time 08:58 09:14 -Correct Patient Yes Yes -Correct Side, Site, Position Yes Yes -Correct Procedure Yes Yes -Procedure Performed Yes Yes -Type of Procedure Debridement Debridement -Clinical Debridement Subcutaneous Subcutaneous -Post Debridement Size (cm) - Length 4 2.9 -Post Debridement Size (cm) - Width 3 2.7 -Post Debridement Size (cm) - Depth 0.3 0.2 -Total Square Cm 12 7.83 -Wound/Ulcer Outcome Not Healed Not Healed -Ulcer Cleansing Rinsed/ Rinsed/ Irrigated with Irrigated with Saline Saline -Foul Odor after Cleansing No No -Bioengineered Tissue No No -Bleeding Controlled with Pressure Pressure -Offloading Yes Yes -Type of Offloading Camwalker Camwalker -Treatment Response Procedure Procedure Tolerated Well Tolerated Well Pain Scale: 0-10 Numeric Is Patient Pain Free? Yes Yes Wound debrided: Left heel Laterality: Left Type of Debridement: Excisional debridement Anesthesia Used: 5% Lidocaine Gel Depth: in the subcutaneous layer Percentage of wound debrided: 100 Instrument Used: 3mm curette, #15 blade Tissue Removed: Devitalized subcutaneous tissue, adherent slough, fibrin, biofil m Severity: Fat Layer Exposed Amount of bleeding with debridement: Mild Bleeding Controlled with: Pressure Patient tolerated procedure well Assessment/Plan Assessment: Diabetic ulcer left heel. DM 2 with neuropathy. Other comorbidities Plan: Patient was carefully examined and evaluated again today for follow-up of left heel ulcer. Ulcer has shown very good improvement over the course of the last week. She is to continue with her oral antibiotics until complete. No signs of local infection appreciated today. A subcutaneous debridement was performed as noted in the clinical panel. Once complete, the ulcer site was carefully cleansed and then dressed with Aquacel Ag to the base followed by dry sterile dressing. The patient is to have the dressing changed in this manner on a daily basis. The patient was instructed to keep the left heel offloaded at all times while seated or laying down. I stressed the importance of this and the patient's healing. She is to continue with offloading CAM Walker to the left side. She is to continue use of her motorized wheelchair. She is to keep the heel floated completely with nothing under it except air. I continue to recommend a diet high in protein to help optimize ulcer healing potential. The patient was educated on all signs and symptoms of local and systemic infection, and she was instructed to go to the emergency room immediately should she notice any of these. All other questions were answered to the patient's satisfaction today. The patient will follow back up in clinic in 1 week to check on progress, or sooner if needed before then.
[2019-03-14 08:09] VITALS: BP 129/80; PULSE 95; RESP 16; TEMP 36.4
--- NOTE | 2019-03-14 09:22 | PCM.WC.PN ---
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 (2) Type 2 diabetes mellitus with diabetic polyneuropathy Status: Chronic Current Visit: No Code(s): E11.42 - Type 2 diabetes mellitus with diabetic polyneuropathy (3) Delayed wound healing Status: Acute Current Visit: No Code(s): T14.8XXD - Other injury of unspecified body region, subsequent encounter (4) Lower extremity edema Status: Chronic Current Visit: No Code(s): R60.0 - Localized edema (5) Non-compliance Status: Acute Current Visit: No Code(s): Z91.19 - Patient's noncompliance with other medical treatment and regimen Type of Wound Date of Service: 03/14/19 Chief Complaint: left heel ulcer History of Wound: This 38-year-old diabetic female was consulted to the wound healing center for left heel ulcer. Patient had been having treatment at the wound healing center a couple of months ago. Due to other health issues, being in and out of different hospitals and nursing homes, the patient has not been able to follow up here. She saw Dr. Gomez again last week for this issue, and he referred her back to the wound healing center again. She has been keeping the area dressed daily. She also relates that she has been doint her best to keep all pressure off of her left heel, but says at times she still does have pressure to the area. Progress of Wound: Patient presents for follow-up of left heel ulcer today. Patient currently denies any feelings of nausea, vomiting, fever, chills. - Physical Exam Vital Signs Temp Pulse Resp BP 97.5 F L 95 16 129/80 H 03/14/19 08:09 03/14/19 08:09 03/14/19 08:09 03/14/19 08:09 General: Alert, Oriented x3, Cooperative, No apparent distress Extremities: No cyanosis, Capillary Refill Less than 3 Seconds, No Calf Tenderness - Negative Angella and Pinto signs bilateral, Edema - Mild lower extremity edema, Peripheral Pulses Normal Skin: Ulcer/ Wound - Ulcer with fat layer exposed left heel. The base is a mixture of adherent slough, devitalized subcutaneous tissue, fibrin, biofilm, granular tissue, and surrounding hyperkeratotic skin. There is no probing to bone, no tracking, no undermining, no purulence, no surrounding or extending cellulitis, no malodor, and no increase in warmth to the ulcer site at this time. Wound Measurements and Assessment WC - Nurse 1 - General Ulcer Measurement Start: 02/28/19 08:47 Freq: Status: Active Protocol: Activity Type Activity Date Activity User E-Sign Co-Sign Detail Recorded Client Recorded Date Recorded By Document 03/14/19 08:09 MW [id number] 03/14/19 08:15 MW 03/14/19 08:09 Wound Center Nurse 1 [Ulcer Assessment] 5. L heel -Combined with other wound No -Current Size (cm) - Length 2.8 -Current Size (cm) - Width 2.5 -Current Size (cm) - Depth 0.6 -Total Square Cm 7.00 -Photo Taken No -Epithelialization None Present -Tunneling No -Undermining/Tunneling No -Circular Undermining No -Exudate Amt Medium -Exudate Type Serosanguineous -Wound Margin Flat & Intact -Granulation Amt Medium (34-66%) -Granulation Quality [place] -Slough/Fibrin Yes -Necrosis Amt Small (1-33%) -Necrotic Tissue Type Adherent Slough -Structure Exposed N/A -Texture (Joan-wound Skin Appearance) Assessed,Callus ,Scarring -Moisture (Joan-wound Skin Appearance Assessed,Dry/ ) Scaly -Color (Joan-wound Skin Appearance) No Abnormality, Assessed -Temperature (Joan-wound Skin No Abnormality Appearance) (Pt Warm) -Tenderness on Palpation (Joan-wound No Skin Appearance) -Ulcer Cleansing Rinsed/ Irrigated with Saline -Foul Odor after Cleansing No -Anesthetic Used 4% Lidocaine Solution [Edema Assessment] -Lower Limb Edema Present No WC - Nurse 2 - General Ulcer CM Notes Start: 02/28/19 08:47 Freq: Status: Active Protocol: Activity Type Activity Date Activity User E-Sign Co-Sign Detail Recorded Client Recorded Date Recorded By Document 03/14/19 08:32 AN [id number] 03/14/19 08:36 AN 03/14/19 08:32 Wound Center Nurse 2 [Procedure/Treatment] 5. L heel -Time 08:33 -Correct Patient Yes -Correct Side, Site, Position Yes -Correct Procedure Yes -Procedure Performed Yes -Type of Procedure Debridement -Clinical Debridement Subcutaneous -Post Debridement Size (cm) - Length 3.1 -Post Debridement Size (cm) - Width 2.4 -Post Debridement Size (cm) - Depth 0.2 -Total Square Cm 7.44 -Wound/Ulcer Outcome Not Healed -Ulcer Cleansing Rinsed/ Irrigated with Saline -Foul Odor after Cleansing No -Bioengineered Tissue No -Bleeding Controlled with Pressure -Offloading Yes -Treatment Response Procedure Tolerated Well [See Physician Procedure note for Specifics] Pain Scale: 0-10 Numeric [Pain] -Is Patient Pain Free? Yes Musculoskeletal: No Tenderness to Palpation of Joints or Extremities, - - Improving tenderness with ulcer site manipulation Neurological: - - Epicritic sensation grossly absent to bilateral lower extremities Psych/Mental Status: Normal Affect, Appropriate Debridement Note Post-Debridement Measurements/Treatment WC - Nurse 2 - General Ulcer CM Notes Start: 02/28/19 08:47 Freq: Status: Active Protocol: Activity Type Activity Date Activity User E-Sign Co-Sign Detail Recorded Client Recorded Date Recorded By Document 02/28/19 08:57 AN [id number] 02/28/19 09:14 AN Document 03/07/19 09:14 AN [id number] 03/07/19 09:22 AN Document 03/14/19 08:32 AN [id number] 03/14/19 08:36 AN 02/28/19 03/07/19 03/14/19 08:57 09:14 08:32 Wound Center Nurse 2 5. L heel -Time 08:58 09:14 08:33 -Correct Patient Yes Yes Yes -Correct Side, Site, Position Yes Yes Yes -Correct Procedure Yes Yes Yes -Procedure Performed Yes Yes Yes -Type of Procedure Debridement Debridement Debridement -Clinical Debridement Subcutaneous Subcutaneous Subcutaneous -Post Debridement Size (cm) - Length 4 2.9 3.1 -Post Debridement Size (cm) - Width 3 2.7 2.4 -Post Debridement Size (cm) - Depth 0.3 0.2 0.2 -Total Square Cm 12 7.83 7.44 -Wound/Ulcer Outcome Not Healed Not Healed Not Healed -Ulcer Cleansing Rinsed/ Rinsed/ Rinsed/ Irrigated with Irrigated with Irrigated with Saline Saline Saline -Foul Odor after Cleansing No No No -Bioengineered Tissue No No No -Bleeding Controlled with Pressure Pressure Pressure -Offloading Yes Yes Yes -Type of Offloading Camwalker Camwalker -Treatment Response Procedure Procedure Procedure Tolerated Well Tolerated Well Tolerated Well Pain Scale: 0-10 Numeric Is Patient Pain Free? Yes Yes Yes Wound debrided: Left heel Laterality: Left Type of Debridement: Excisional debridement Anesthesia Used: 5% Lidocaine Gel Depth: in the subcutaneous layer Percentage of wound debrided: 100 Instrument Used: 3mm curette, #15 blade Tissue Removed: Devitalized subcutaneous tissue, adherent slough, fibrin, biofilm Severity: Fat Layer Exposed Amount of bleeding with debridement: Mild Bleeding Controlled with: Pressure Patient tolerated procedure well Assessment/Plan Assessment: Diabetic ulcer left heel. DM 2 with neuropathy. Other comorbidities Plan: Patient was carefully examined and evaluated again today for follow-up of left heel ulcer. No signs of local infection appreciated again today. A subcutaneous debridement was performed as noted in the clinical panel. Once complete, the ulcer site was carefully cleansed and then dressed with Aquacel Ag to the base followed by dry sterile dressing. The patient is to have the dressing changed in this manner on a daily basis. The patient was instructed to keep the left heel offloaded at all times while seated or laying down. I stressed the importance of this and the patient's healing. She is to continue with offloading CAM Walker to the left side. She is to continue use of her motorized wheelchair. She is to keep the heel floated completely with nothing under it except air. I continue to recommend a diet high in protein to help optimize ulcer healing potential. The patient was educated on all signs and symptoms of local and systemic infection, and she was instructed to go to the emergency room immediately should she notice any of these. All other questions were answered to the patient's satisfaction today. The patient will follow back up in clinic in 1 week to check on progress, or sooner if needed before then.
[2019-03-20 10:36] VITALS: BP 158/84; PULSE 74; RESP 18; TEMP 35.7; BMI 39.6
--- NOTE | 2019-03-20 11:46 | PCM.WC.PN ---
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 Status: Chronic Current Visit: Yes Code(s): L97.422 - Non-pressure chronic ulcer of left heel and midfoot with fat layer exposed (2) Type 2 diabetes mellitus with diabetic polyneuropathy Status: Chronic Current Visit: Yes Code(s): E11.42 - Type 2 diabetes mellitus with diabetic polyneuropathy (3) Delayed wound healing Status: Acute Current Visit: Yes Code(s): T14.8XXD - Other injury of unspecified body region, subsequent encounter (4) Lower extremity edema Status: Chronic Current Visit: Yes Code(s): R60.0 - Localized edema (5) Spina bifida aperta of lumbar spine Status: Chronic Current Visit: Yes Code(s): Q05.7 - Lumbar spina bifida without hydrocephalus Comment: s/p surgery x 2 weakness and numbness in legs neurogenic bladder and frequent UTIs Type of Wound Date of Service: 03/21/19 Chief Complaint: left heel ulcer History of Wound: This 38-year-old diabetic female was consulted to the wound healing center for left heel ulcer. Patient had been having treatment at the wound healing center a couple of months ago. Due to other health issues, being in and out of different hospitals and nursing homes, the patient has not been able to follow up here. She saw Dr. Gomez again last week for this issue, and he referred her back to the wound healing center again. She has been keeping the area dressed daily. She also relates that she has been doint her best to keep all pressure off of her left heel, but says at times she still does have pressure to the area. Progress of Wound: Stable and improving. She denies fever, chills, nausea, vomiting. - Physical Exam Vital Signs Temp Pulse Resp BP 96.2 F L 74 18 158/84 H 03/20/19 10:36 03/20/19 10:36 03/20/19 10:36 03/20/19 10:36 General: Alert, Oriented x3, Cooperative, No apparent distress Extremities: No cyanosis, Capillary Refill Less than 3 Seconds, No Calf Tenderness - Negative Angella and Pinto sign, Diminished Peripheral Pulses, Edema - Lower extremity Skin: Ulcer/ Wound - No purulence, erythema, streaking, odor, infection. Peripheral skin is atrophic and fragile. There is minimal hyperkeratotic tissue noted along the ulcer site. Wound Measurements and Assessment WC - Nurse 1 - General Ulcer Measurement Start: 02/28/19 08:47 Freq: Status: Active Protocol: Activity Type Activity Date Activity User E-Sign Co-Sign Detail Recorded Client Recorded Date Recorded By Document 03/20/19 10:36 RB [id number] 03/20/19 10:39 RB 03/20/19 10:36 Wound Center Nurse 1 [Ulcer Assessment] 5. L heel -Combined with other wound No -Current Size (cm) - Length 1 -Current Size (cm) - Width 0.6 -Current Size (cm) - Depth 0.2 -Total Square Cm 0.6 -Tunneling No -Undermining/Tunneling No -Circular Undermining No -Exudate Amt Small -Exudate Type Serosanguineous -Wound Margin Distinct, Outline Attached -Granulation Amt Medium (34-66%) -Granulation Quality [place] -Slough/Fibrin Yes -Necrosis Amt Medium (34-66%) -Necrotic Tissue Type Adherent Slough -Structure Exposed N/A -Texture (Joan-wound Skin Appearance) Assessed -Moisture (Joan-wound Skin Appearance Dry/Scaly ) -Color (Joan-wound Skin Appearance) Assessed -Temperature (Joan-wound Skin No Abnormality Appearance) (Pt Warm) -Tenderness on Palpation (Joan-wound No Skin Appearance) -Ulcer Cleansing Wound Cleanser -Foul Odor after Cleansing No -Anesthetic Used 5% Lidocaine Gel [Edema Assessment] -Left Calf (cm) 49.3 -Left Ankle (cm) 26.1 WC - Nurse 2 - General Ulcer CM Notes Start: 02/28/19 08:47 Freq: Status: Active Protocol: Activity Type Activity Date Activity User E-Sign Co-Sign Detail Recorded Client Recorded Date Recorded By Document 03/20/19 11:21 AN [id number] 03/20/19 11:22 AN 03/20/19 11:21 Wound Center Nurse 2 [Procedure/Treatment] 5. L heel -Time 11:21 -Correct Patient Yes -Correct Side, Site, Position Yes -Correct Procedure Yes -Procedure Performed Yes -Type of Procedure Debridement -Clinical Debridement Subcutaneous -Post Debridement Size (cm) - Length 1.1 -Post Debridement Size (cm) - Width 0.7 -Post Debridement Size (cm) - Depth 0.2 -Total Square Cm 0.77 -Wound/Ulcer Outcome Not Healed -Ulcer Cleansing Rinsed/ Irrigated with Saline -Foul Odor after Cleansing No -Bioengineered Tissue No -Bleeding Controlled with Pressure -Offloading Yes -Treatment Response Procedure Tolerated Well [See Physician Procedure note for Specifics] Pain Scale: 0-10 Numeric [Pain] -Is Patient Pain Free? Yes Musculoskeletal: No Tenderness to Palpation of Joints or Extremities, Muscle Wasting, Tenderness - Ulcer manipulation, - - Compartment soft to palpate left lower extremity. Nonambulatory and wheelchair status is noted Psych/Mental Status: Normal Affect, Appropriate Debridement Note Post-Debridement Measurements/Treatment WC - Nurse 2 - General Ulcer CM Notes Start: 02/28/19 08:47 Freq: Status: Active Protocol: Activity Type Activity Date Activity User E-Sign Co-Sign Detail Recorded Client Recorded Date Recorded By Document 02/28/19 08:57 AN [id number] 02/28/19 09:14 AN Document 03/07/19 09:14 AN [id number] 03/07/19 09:22 AN Document 03/14/19 08:32 AN [id number] 03/14/19 08:36 AN Document 03/20/19 11:21 AN [id number] 03/20/19 11:22 AN 02/28/19 03/07/19 03/14/19 08:57 09:14 08:32 Wound Center Nurse 2 5. L heel -Time 08:58 09:14 08:33 -Correct Patient Yes Yes Yes -Correct Side, Site, Position Yes Yes Yes -Correct Procedure Yes Yes Yes -Procedure Performed Yes Yes Yes -Type of Procedure Debridement Debridement Debridement -Clinical Debridement Subcutaneous Subcutaneous Subcutaneous -Post Debridement Size (cm) - Length 4 2.9 3.1 -Post Debridement Size (cm) - Width 3 2.7 2.4 -Post Debridement Size (cm) - Depth 0.3 0.2 0.2 -Total Square Cm 12 7.83 7.44 -Wound/Ulcer Outcome Not Healed Not Healed Not Healed -Ulcer Cleansing Rinsed/ Rinsed/ Rinsed/ Irrigated with Irrigated with Irrigated with Saline Saline Saline -Foul Odor after Cleansing No No No -Bioengineered Tissue No No No -Bleeding Controlled with Pressure Pressure Pressure -Offloading Yes Yes Yes -Type of Offloading Camwalker Camwalker -Treatment Response Procedure Procedure Procedure Tolerated Well Tolerated Well Tolerated Well Pain Scale: 0-10 Numeric Is Patient Pain Free? Yes Yes Yes 03/20/19 11:21 Wound Center Nurse 2 5. L heel -Time 11:21 -Correct Patient Yes -Correct Side, Site, Position Yes -Correct Procedure Yes -Procedure Performed Yes -Type of Procedure Debridement -Clinical Debridement Subcutaneous -Post Debridement Size (cm) - Length 1.1 -Post Debridement Size (cm) - Width 0.7 -Post Debridement Size (cm) - Depth 0.2 -Total Square Cm 0.77 -Wound/Ulcer Outcome Not Healed -Ulcer Cleansing Rinsed/ Irrigated with Saline -Foul Odor after Cleansing No -Bioengineered Tissue No -Bleeding Controlled with Pressure -Offloading Yes -Type of Offloading -Treatment Response Procedure Tolerated Well Pain Scale: 0-10 Numeric Is Patient Pain Free? Yes Wound debrided: heel Laterality: Left Wound Grade/Stage: grade 1 Type of Debridement: Excisional debridement Anesthesia Used: 5% Lidocaine Gel Depth: in the subcutaneous layer Percentage of wound debrided: 100 Instrument Used: #15 blade Tissue Removed: fibrous, devitalized subcutaneous, biofilm, slough, callous Severity: Fat Layer Exposed Amount of bleeding with debridement: Mild Bleeding Controlled with: Pressure Patient tolerated procedure well Assessment/Plan Active Problems (Last Reviewed 12/13/18 @ 21:23 by Gen Butt MD) Decubitus ulcer of left heel (Acute) Type 2 diabetes mellitus with diabetic polyneuropathy (Chronic) Delayed wound healing (Acute) Lower extremity edema (Chronic) Ulcer of left heel and midfoot with fat layer exposed (Chronic) Spina bifida aperta of lumbar spine (Chronic) s/p surgery x 2 weakness and numbness in legs neurogenic bladder and frequent UTIs Assessment: Diabetic ulcer left heel. DM 2 with neuropathy. Other comorbidities Plan: Patient was carefully examined and evaluated again today for follow-up of left heel ulcer. No signs of local infection appreciated again today. A subcutaneous debridement was performed as noted in the clinical panel. Once complete, the ulcer site was carefully cleansed and then dressed with Aquacel Ag to the base followed by dry sterile dressing. The patient is to have the dressing changed in this manner on a daily basis. The patient was instructed to keep the left heel offloaded at all times while seated or laying down. I stressed the importance of this and the patient's healing. She is to continue with offloading CAM Walker to the left side. She is to continue use of her motorized wheelchair. She is to keep the heel floated completely with nothing under it except air. I continue to recommend a diet high in protein to help optimize ulcer healing potential. The patient was educated on all signs and symptoms of local and systemic infection, and she was instructed to go to the emergency room immediately should she notice any of these. All other questions were answered to the patient's satisfaction today. The patient will follow back up in clinic in 1 week to check on progress, or sooner if needed before then. This is a courtesy visit for Dr. Faria.
[2019-03-28 09:50] VITALS: BP 137/77; PULSE 87; RESP 18; TEMP 35.9; BMI 39.6
--- NOTE | 2019-03-28 11:12 | PCM.WC.PN ---
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 (2) Type 2 diabetes mellitus with diabetic polyneuropathy Status: Chronic Current Visit: Yes Code(s): E11.42 - Type 2 diabetes mellitus with diabetic polyneuropathy (3) Delayed wound healing Status: Acute Current Visit: Yes Code(s): T14.8XXD - Other injury of unspecified body region, subsequent encounter (4) Lower extremity edema Status: Chronic Current Visit: Yes Code(s): R60.0 - Localized edema (5) Non-compliance Status: Acute Current Visit: No Code(s): Z91.19 - Patient's noncompliance with other medical treatment and regimen Type of Wound Date of Service: 03/28/19 Chief Complaint: left heel ulcer History of Wound: This 38-year-old diabetic female was consulted to the wound healing center for left heel ulcer. Patient had been having treatment at the wound healing center a couple of months ago. Due to other health issues, being in and out of different hospitals and nursing homes, the patient has not been able to follow up here. She saw Dr. Gomez again last week for this issue, and he referred her back to the wound healing center again. She has been keeping the area dressed daily. She also relates that she has been doint her best to keep all pressure off of her left heel, but says at times she still does have pressure to the area. Progress of Wound: Patient presents for follow-up of left heel ulcer today. Improvement noted. Patient currently denies any feelings of nausea, vomiting, fever, chills. - Physical Exam Vital Signs Temp Pulse Resp BP 96.7 F L 87 18 137/77 H 03/28/19 09:50 03/28/19 09:50 03/28/19 09:50 03/28/19 09:50 General: Alert, Oriented x3, Cooperative, No apparent distress Extremities: No cyanosis, Capillary Refill Less than 3 Seconds, No Calf Tenderness - Negative Angella and Pinto signs bilateral, Edema - Mild lower extremity edema, Peripheral Pulses Normal Skin: Ulcer/ Wound - Ulcer with fat layer exposed left heel. Improvement noted. The base is a mixture of adherent slough, devitalized subcutaneous tissue, fibrin, biofilm, granular tissue, and surrounding hyperkeratotic skin. There is no probing to bone, no tracking, no undermining, no purulence, no surrounding or extending cellulitis, no malodor, and no increase in warmth to the ulcer site at this time. Wound Measurements and Assessment - Nurse 1 - General Ulcer Measurement Start: 02/28/19 08:47 Freq: Status: Active Protocol: Activity Type Activity Date Activity User E-Sign Co-Sign Detail Recorded Client Recorded Date Recorded By Document 03/28/19 09:50 RB [id number] 03/28/19 09:52 RB 03/28/19 09:50 Wound Center Nurse 1 [Ulcer Assessment] 5. L heel -Combined with other wound No -Current Size (cm) - Length 1.7 -Current Size (cm) - Width 0.6 -Current Size (cm) - Depth 0.1 -Total Square Cm 1.02 -Tunneling No -Undermining/Tunneling No -Circular Undermining No -Exudate Amt Small -Exudate Type Serosanguineous -Wound Margin Flat & Intact -Granulation Amt Medium (34-66%) -Granulation Quality [place] -Slough/Fibrin Yes -Necrosis Amt Small (1-33%) -Necrotic Tissue Type Adherent Slough -Structure Exposed N/A -Texture (Joan-wound Skin Appearance) Assessed,Callus -Moisture (Joan-wound Skin Appearance Assessed ) -Color (Joan-wound Skin Appearance) Assessed -Temperature (Joan-wound Skin No Abnormality Appearance) (Pt Warm) -Tenderness on Palpation (Joan-wound No Skin Appearance) -Ulcer Cleansing Wound Cleanser -Foul Odor after Cleansing No -Anesthetic Used 5% Lidocaine Gel - Nurse 2 - General Ulcer CM Notes Start: 02/28/19 08:47 Freq: Status: Active Protocol: Activity Type Activity Date Activity User E-Sign Co-Sign Detail Recorded Client Recorded Date Recorded By Document 03/28/19 10:05 AN [id number] 03/28/19 10:08 AN 03/28/19 10:05 Wound Center Nurse 2 [Procedure/Treatment] -Time 10:05 -Correct Patient Yes -Correct Side, Site, Position Yes -Correct Procedure Yes -Procedure Performed Yes -Type of Procedure Debridement -Clinical Debridement Subcutaneous -Post Debridement Size (cm) - Length 2.5 -Post Debridement Size (cm) - Width 0.8 -Post Debridement Size (cm) - Depth 0.2 -Total Square Cm 2.00 -Wound/Ulcer Outcome Not Healed -Ulcer Cleansing Rinsed/ Irrigated with Saline -Foul Odor after Cleansing No -Bioengineered Tissue No -Bleeding Controlled with Pressure -Offloading Yes -Treatment Response Procedure Tolerated Well [See Physician Procedure note for Specifics] Pain Scale: 0-10 Numeric [Pain] -Is Patient Pain Free? Yes Musculoskeletal: No Tenderness to Palpation of Joints or Extremities, - - No significant tenderness appreciated with ulcer site manipulation today. Neurological: - - Epicritic sensation grossly absent to bilateral lower extremities Psych/Mental Status: Normal Affect, Appropriate Debridement Note Post-Debridement Measurements/Treatment WC - Nurse 2 - General Ulcer CM Notes Start: 02/28/19 08:47 Freq: Status: Active Protocol: Activity Type Activity Date Activity User E-Sign Co-Sign Detail Recorded Client Recorded Date Recorded By Document 02/28/19 08:57 AN [id number] 02/28/19 09:14 AN Document 03/07/19 09:14 AN [id number] 03/07/19 09:22 AN Document 03/14/19 08:32 AN [id number] 03/14/19 08:36 AN Document 03/20/19 11:21 AN [id number] 03/20/19 11:22 AN Document 03/28/19 10:05 AN [id number] 03/28/19 10:08 AN 02/28/19 03/07/19 03/14/19 08:57 09:14 08:32 Wound Center Nurse 2 5. L heel -Time 08:58 09:14 08:33 -Correct Patient Yes Yes Yes -Correct Side, Site, Position Yes Yes Yes -Correct Procedure Yes Yes Yes -Procedure Performed Yes Yes Yes -Type of Procedure Debridement Debridement Debridement -Clinical Debridement Subcutaneous Subcutaneous Subcutaneous -Post Debridement Size (cm) - Length 4 2.9 3.1 -Post Debridement Size (cm) - Width 3 2.7 2.4 -Post Debridement Size (cm) - Depth 0.3 0.2 0.2 -Total Square Cm 12 7.83 7.44 -Wound/Ulcer Outcome Not Healed Not Healed Not Healed -Ulcer Cleansing Rinsed/ Rinsed/ Rinsed/ Irrigated with Irrigated with Irrigated with Saline Saline Saline -Foul Odor after Cleansing No No No -Bioengineered Tissue No No No -Bleeding Controlled with Pressure Pressure Pressure -Offloading Yes Yes Yes -Type of Offloading Camwalker Camwalker -Treatment Response Procedure Procedure Procedure Tolerated Well Tolerated Well Tolerated Well Pain Scale: 0-10 Numeric Is Patient Pain Free? Yes Yes Yes 03/20/19 03/28/19 11:21 10:05 Wound Center Nurse 2 5. L heel -Time 11:21 10:05 -Correct Patient Yes Yes -Correct Side, Site, Position Yes Yes -Correct Procedure Yes Yes -Procedure Performed Yes Yes -Type of Procedure Debridement Debridement -Clinical Debridement Subcutaneous Subcutaneous -Post Debridement Size (cm) - Length 1.1 2.5 -Post Debridement Size (cm) - Width 0.7 0.8 -Post Debridement Size (cm) - Depth 0.2 0.2 -Total Square Cm 0.77 2.00 -Wound/Ulcer Outcome Not Healed Not Healed -Ulcer Cleansing Rinsed/ Rinsed/ Irrigated with Irrigated with Saline Saline -Foul Odor after Cleansing No No -Bioengineered Tissue No No -Bleeding Controlled with Pressure Pressure -Offloading Yes Yes -Type of Offloading -Treatment Response Procedure Procedure Tolerated Well Tolerated Well Pain Scale: 0-10 Numeric Is Patient Pain Free? Yes Yes Wound debrided: Left heel Laterality: Left Type of Debridement: Excisional debridement Anesthesia Used: 5% Lidocaine Gel Depth: in the subcutaneous layer Percentage of wound debrided: 100 Instrument Used: 3mm curette, #15 blade Tissue Removed: Devitalized subcutaneous tissue, adherent slough, fibrin, biofilm Severity: Fat Layer Exposed Amount of bleeding with debridement: Mild Bleeding Controlled with: Pressure Patient tolerated procedure well Assessment/Plan Active Problems (Last Reviewed 12/13/18 @ 21:23 by Gen Butt MD) Decubitus ulcer of left heel (Acute) Type 2 diabetes mellitus with diabetic polyneuropathy (Chronic) Delayed wound healing (Acute) Lower extremity edema (Chronic) Ulcer of left heel and midfoot with fat layer exposed (Chronic) Spina bifida aperta of lumbar spine (Chronic) s/p surgery x 2 weakness and numbness in legs neurogenic bladder and frequent UTIs Assessment: Diabetic ulcer left heel. DM 2 with neuropathy. Other comorbidities Plan: Patient was carefully examined and evaluated again today for follow-up of left heel ulcer. No signs of local infection appreciated again today. Improvement noted again today. A subcutaneous debridement was performed as noted in the clinical panel. Once complete, the ulcer site was carefully cleansed and then dressed with Aquacel Ag to the base followed by dry sterile dressing. The patient is to have the dressing changed in this manner on a daily basis. The patient was instructed to keep the left heel offloaded at all times while seated or laying down. I stressed the importance of this and the patient's healing. She is to continue with offloading CAM Walker to the left side. She is to continue use of her motorized wheelchair. She is to keep the heel floated completely with nothing under it except air. I continue to recommend a diet high in protein to help optimize ulcer healing potential. The patient was educated on all signs and symptoms of local and systemic infection, and she was instructed to go to the emergency room immediately should she notice any of these. All other questions were answered to the patient's satisfaction today. The patient will follow back up in clinic in 1 week to check on progress, or sooner if needed before then.
== END 2019-03-28 23:59 ==
LOC: WC 09:45
PROVIDERS: Family Provider Family Medicine; PCP Family Medicine; Visit Provider Podiatrist
DX: E11.621 Type 2 diabetes mellitus with foot ulcer (principal); E11.42 Type 2 diabetes mellitus with diabetic polyneuropathy; R60.0 Localized edema; Z91.19 Patient's noncompliance with other medical treatment and regimen; L97.422 Non-pressure chronic ulcer of left heel and midfoot with fat layer exposed; Z87.440 Personal history of urinary (tract) infections; N31.9 Neuromuscular dysfunction of bladder, unspecified; Q05.7 Lumbar spina bifida without hydrocephalus
CPT/HCPCS: 11042; 87070; 87075; 87077; 87186; 87205; 87640

== ENCOUNTER 2019-04-05 13:44 | Inpatient (IN) | payer MEDICARE, MEDICAID, SELFPAY ==
[2019-04-04 08:23] VITALS: BMI 39.6
[2019-04-05 13:45] VITALS: BP 164/99; PULSE 110; RESP 22; TEMP 37.5; O2SAT 98; BMI 42.0
[2019-04-05] MEDS: Morphine 4 MG/ML Syringe IV (14:48)
[2019-04-05] MEDS: Ondansetron 4 MG/2 ML Vial IV (14:48)
--- NOTE | 2019-04-05 14:51 | ED.VISSUMM ---
- ER Visit Summary Date of Service: 04/05/19 Chief Complaint: UTI History of Present Illness: The patient is a 38 F who presents with a possible UTI. She has a history of neurogenic bladder and bowel. She has a suprapubic catheter which was placed remotely. It was exchanged earlier this week. The catheter came through her history of bladder urethra. It was replaced. She has noted some cloudy urine. She has some suprapubic pain, subjective fevers and chills, and weakness. She is concerned for UTI. She is not currently on antibiotics. Physical Examination: Afebrile. Heart rate 110 and respiratory rate 22. Patient appears uncomfortable but not toxic or in distress. Heart rate on my exam is regular. Lungs are clear. Abdomen is soft and nontender. Suprapubic catheter is in place. Skin appears normal except for foot dressings--patient has chronic foot ulcerations and follows with wound care. Test Results: Labs, lactate, cultures pending. Urinalysis was not ordered as it would certainly be positive and of no diagnostic utility. Emergency Department Course and Treatment: Patient was treated with IV fluids, morphine, Zofran while awaiting results. She will need treatment for UTI, and was started empirically on Rocephin. Will check for sepsis and other complications. Laboratory studies and cultures pending. White count 16.8. Patient typically has a leukocytosis. I am concerned with her elevated white count, elevated heart rate, elevated respiratory rate, and subjective fevers. She has a history of sepsis. Will start Rocephin and patient will likely need admission. I will discuss with the hospitalist. Further testing is still pending. I spoke with the patient. She has some left lower extremity redness now. This developed in the ED prior to initiation of antibiotics. This is blanching and nontender. I am not sure that this is cellulitis or some type of allergic reaction. The patient does not feel that it is like her prior cellulitis. We will treat with benadryl and continue to monitor for now. Treatment Plan: As above Disposition: Pending Impression: 1. UTI 2. Sepsis 3. Suprapubic catheter chronic This note was generated with [employer] software. It may contain incorrect words, spelling, and punctuation that were not noted in review of the chart prior to signing ED Disposition - Plan for ED Patient: Referrals: Will Shukla MD [Primary Care Provider] -
[2019-04-05 15:07] LABS: Absolute Neutrophil Count 14.2 X10^3/uL (2.0-7.7); Basophil# 0.08 X10^3/uL; Basophil% 0.5 % (0-1); Eosinophil# 0.38 X10^3/uL; Eosinophils% 2.3 % (0-5); Hemoglobin 13.4 g/dL (12.0-15.0); Lymphocyte % 7.7 % (19-41); Mean Corp Hgb Conc 32.7 g/dL (32-36); Mean Corpuscular Hgb 29.1 pg (27.0-32.0); Mean Corpuscular Volume 88.9 fL (81-99); Mean Platelet Vol. 10.6 fl (6.2-12.0); Monocyte# 0.77 X10^3/uL; Monocyte% 4.6 % (0-10); NRBC Flagged by Analyzer 0 % (0-5); Neutrophil # 14.18 X10^3/uL (2.7-7.7); Neutrophil % 84.4 % (47-70); Platelet Count 253 K/mm3 (150-450); RBC Distribution Width CV 13.7 % (11.6-14.6); RBC Distribution Width SD 44.6 fl (35.1-43.9); Red Blood Count 4.61 M/mm3 (4.2-5.4); White Blood Count 16.8 K/mm3 (4.4-11.0)
[2019-04-05 15:14] LABS: Anion Gap 7 (5-15); BUN 9 mg/dL (7-18); BUN/Creat Ratio 9.9 RATIO (10-20); Calcium,Total 9.4 mg/dL (8.5-10.1); Chloride 102 mmol/L (98-107); Creatinine, Serum 0.91 mg/dL (0.55-1.02); EST Glomerular Filtration Rate 74 mL/min (>60); Est Glom Filt Rate - Afr Amer 89 mL/min (>60); Estimated Creatinine Clearance 66.95 ml/min; Glucose 216 mg/dL (74-106); Potassium 3.7 mmol/L (3.5-5.1); Sodium Level 136 mmol/L (136-145)
[2019-04-05 15:20] VITALS: BMI 42.1
--- NOTE | 2019-04-05 15:21 | NURSING ---
DR RIBEIRO FOR DR CATHERINE
--- NOTE | 2019-04-05 15:27 | PCM.HP.STD ---
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 Status: Chronic (6) Type 2 diabetes mellitus with diabetic polyneuropathy Status: Chronic (7) Delayed wound healing Status: Chronic (8) Lower extremity edema Status: Chronic (9) Sepsis Status: Acute (10) Ulcer of left heel and midfoot with fat layer exposed Status: Chronic (11) Infection of bladder catheter Status: Acute (12) Constipation Status: Chronic (13) Neurogenic bowel Status: Chronic (14) Neurogenic bladder Status: Chronic (15) Chronic back pain Status: Chronic (16) History of migraine Status: Chronic (17) Depression Status: Chronic (18) Spina bifida aperta of lumbar spine Status: Chronic Comment: s/p surgery x 2 weakness and numbness in legs neurogenic bladder and frequent UTIs (19) Morbid obesity with BMI of 40.0-44.9, adult Status: Chronic (20) Diabetes mellitus, type II Status: Chronic Comment: not well controlled (21) Hydronephrosis of right kidney Status: Chronic Comment: Consult dictated, For now Treat UTI and make sure pt does self cath. Will follow, no need yet for cysto retros etc. But this may change in future Jan Re-admitted consult dictated History of Present Illness Date of Admission: 04/05/19 Chief Complaint: Fever, chills, malaise. The patient is a 38 year old F who presents emergency room due to fever, chills and malaise. Patient reports she had her suprapubic catheter changed on Monday by Dr. Box, [facility]. Patient reports she has her supra catheter changed every 2 weeks. During this catheter change, she reports catheter went into the bladder and then through urethra which she has not experienced in the past. She had to return later that day to have the catheter changed yet again. Since that time, she has had intermittent fever and chills which have worsened along with general malaise, suprapubic tenderness and bilateral flank pain, worse on the right. Today she also developed nausea without emesis. She called her primary urologist at [facility] and was told to go to the emergency room. She reports her urine has been cloudy. Reports foul-smelling urine. She is noted to have left lower extremity rash in the emergency room which appeared fairly suddenly. She reports she noticed it only when changing clothes in the emergency room. She saw Dr. Faria, her warp knitter helper yesterday for left heel wound and no cellulitis or rash was noted at that time. She has a past medical history of recurrent complicated suprapubic catheter site infections/UTIs with history of neurogenic bladder, history of spina bifida with neurogenic bladder, neurogenic bowel and chronic back pain, anxiety, depression, history of migraines, type 2 diabetes mellitus, hyperlipidemia, morbid obesity. Past Medical History Past Medical History (Chronic Problems): Chronic Problems (Last Reviewed 12/13/18 @ 21:23 by Gen Butt MD) Non-compliance (Chronic) Normochromic normocytic anemia (Chronic) HGB normal in Apr 2018 Diabetic ulcer of left heel with fat layer exposed (Chronic) Type 2 diabetes mellitus with diabetic polyneuropathy (Chronic) Delayed wound healing (Chronic) Lower extremity edema (Chronic) Ulcer of left heel and midfoot with fat layer exposed (Chronic) Constipation (Chronic) Neurogenic bowel (Chronic) Neurogenic bladder (Chronic) Chronic back pain (Chronic) History of migraine (Chronic) Depression (Chronic) Spina bifida aperta of lumbar spine (Chronic) s/p surgery x 2 weakness and numbness in legs neurogenic bladder and frequent UTIs Morbid obesity with BMI of 40.0-44.9, adult (Chronic) Diabetes mellitus, type II (Chronic) not well controlled Hydronephrosis of right kidney (Chronic) Consult dictated, For now Treat UTI and make sure pt does self cath. Will follow, no need yet for cysto retros etc. But this may change in future Jan Re-admitted consult dictated Medical History: Medical History (Last Reviewed 12/13/18 @ 21:23 by Gen Butt MD) Neurogenic bowel (Chronic) K59.2 Neurogenic bladder (Chronic) N31.9 Chronic back pain (Chronic) M54.9, G89.29 History of migraine (Chronic) Z86.69 Depression (Chronic) F32.9 Spina bifida aperta of lumbar spine (Chronic) Q05.7 s/p surgery x 2 weakness and numbness in legs neurogenic bladder and frequent UTIs Morbid obesity with BMI of 40.0-44.9, adult (Chronic) E66.01, Z68.41 Diabetes mellitus, type II (Chronic) E11.9 not well controlled Hydronephrosis of right kidney (Chronic) N13.30 Consult dictated, For now Treat UTI and make sure pt does self cath. Will follow, no need yet for cysto retros etc. But this may change in future 13 Sept Re-admitted consult dictated UTI (urinary tract infection) (Resolved) N39.0 Allergies mushroom Allergy (Verified 04/05/19 13:47) Anaphylaxis peanut Allergy (Verified 04/05/19 13:47) Anaphylaxis Gadolinium-MRI Contrast Medium Adverse Reaction (Verified 04/05/19 13:47) Vomiting Latex, Natural Rubber Adverse Reaction (Verified 04/05/19 13:47) Rash Home Medications: Ambulatory Orders Medication Instructions Recorded Atorvastatin Calcium [Lipitor] 10 mg PO QHS 11/07/17 Pseudoephedrine HCl [Sudogest] 30 mg PO Q6H PRN PRN 01/21/18 Furosemide [Lasix] 20 mg PO DAILY@1700 08/28/18 Loratadine [Claritin] 10 mg PO DAILY 08/28/18 Propranolol HCl 10 mg PO DAILY 08/28/18 Phenazopyridine HCl [Pyridium] 200 mg PO Q8H PRN PRN #14 tab 12/08/18 Metformin HCl 1,000 mg PO BID 02/18/19 Liraglutide [Victoza 3-Kenneth] 1.8 mg SQ DAILY 02/26/19 Furosemide [Lasix] 40 mg PO DAILY 04/05/19 Oxybutynin Chloride [Oxybutynin 15 mg PO DAILY 04/05/19 Chloride ER] Psyllium Husk [Metamucil] 15 ml PO DAILY 04/05/19 Surgical History: Surgical History (Last Reviewed 12/13/18 @ 21:23 by Gen Butt MD) History of cholecystectomy Z90.49 History of dilation and curettage Z98.890 History of spinal surgery Z98.890 Hx of foot surgery Z98.890 Hx of ventral hernia repair Z98.890, Z87.19 Status post gastric surgery Z98.890 Surgical History: cholecystectomy, - - D&C, lumbar back surgery x2, foot surgery x2, abdominal stoma, ventral hernia repair. 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 Sibling Family History: Family History (Last Reviewed 12/13/18 @ 21:16 by Gen Butt MD) Mother CVA (cerebral vascular accident) Thyroid disorder Diabetes Hypertension History Items: - - Denies known sibling medical history. Review of Systems Constitutional: Reports: Chills, Fever, Malaise HEENT: Denies: Head Aches, Sinus Congestion, Sinus Drainage Cardiovascular: Denies: Chest Pain, Edema, Light Headedness, Palpitations, Syncope Respiratory: Denies: Cough, Shortness of breath at rest, Sputum production Gastrointestinal: Reports: Constipation, Nausea, - - Suprapubic pain. Denies: Diarrhea, Vomiting Genitourinary: Reports: - - Suprapubic catheter, cloudy and foul-smelling urine. Denies: Dysuria Musculoskeletal: Denies: Joint Pain, Joint Tenderness Skin: Reports: - - Left lower extremity. Denies: Wounds Neurological: Denies: Numbness, Tingling, Focal weakness Psychiatric: Reports: Anxiety, Depression Hematologic/ Lymphatic: Denies: Easy Bruising, Easy Bleeding VTE Information - Inpt Only VTE Present on Admission: No VTE Mechan Device Prophylaxis: None VTE Pharm Prophylaxis ordered?: Yes - Physical Exam Vitals/I&O's: Vital Signs Temp Pulse Resp BP Pulse Ox 99.5 F H 110 H 22 H 164/99 H 98 04/05/19 13:45 04/05/19 13:45 04/05/19 13:45 04/05/19 13:45 04/05/19 13:45 Oxygen Delivery Method Room Air Weight: 230 lb Body Mass Index (BMI) 42.0 Finger Stick Blood Glucose 171 General: Alert, Oriented x3, Cooperative HEENT: Atraumatic, PERRLA, EOMI, Normocephalic Neck: Supple, No JVD, Negative Carotid Bruits Lungs: Clear to auscultation, Normal air movement Cardiovascular: Regular Rhythm, Normal S1, Normal S2, No murmurs, Tachycardic Abdomen: Bowel Sounds Present, Soft, Non Tender, Non-Distended, - - Suprapubic catheter in place, cloudy urine. Extremities: No clubbing, No cyanosis, No edema, Capillary Refill Less than 3 Seconds Skin: - - Left lower extremity anterior mcdonald diffuse erythema. Left heel diabetic foot wound. Musculoskeletal: No Tenderness to Palpation of Joints or Extremities Neurological: Cranial nerves II-XII grossly intact, Neuro grossly intact Psych/Mental Status: Normal Affect, Appropriate Laboratory Results 04/05/19 14:45: WBC 16.8 H, RBC 4.61, Hgb 13.4, Hct 41.0, MCV 88.9, MCH 29.1, MCHC 32.7, RDW Std Deviation 44.6 H, RDW Coeff of Claude 13.7, Plt Count 253, MPV 10.6, Immature Gran % (Auto) 0.500, Neut % (Auto) 84.4 H, Lymph % (Auto) 7.7 L, Daggett % (Auto) 4.6, Eos % (Auto) 2.3, Baso % (Auto) 0.5, Absolute Neuts (auto) 14.2 H, Absolute Lymphs (auto) 1.30, Nucleated RBC % 0 04/05/19 14:45: Sodium 136, Potassium 3.7, Chloride 102, Carbon Dioxide 27.0, Anion Gap 7, BUN 9, Creatinine 0.91, Estim Creat Clear Calc 66.95, Est GFR (MDRD) Af Amer 89, Est GFR (MDRD) Non-Af 74, BUN/Creatinine Ratio 9.9 L, Glucose 216 H, Calcium 9.4 04/05/19 14:45: Lactic Acid Pending Current Medications Ceftriaxone Sodium (Rocephin) 1 gm in 50 mls @ 100 mls/hr IV X1 ONE Stop: 04/05/19 15:31 Assessment/Plan All Active Problems (Last Reviewed 12/13/18 @ 21:23 by Gen Butt MD) UTI (urinary tract infection) (Acute) Sepsis (Acute) Infection of bladder catheter (Acute) UTI (urinary tract infection) (Resolved) 1. Acute sepsis secondary to acute complicated UTI with chronic suprapubic catheter secondary to neurogenic bladder-on IV Rocephin. Prior urine culture with multiple organisms including stenotrophomonas, staph, Enterobacter, Corynebacterium, and Serratia marcescens. Follow urine culture. 2. Left stage III heel diabetic wound- Follows with Dr. Faria. Daily dressing changes with Aquacel Ag and dry sterile dressing. Wound RN consult. Offloading left heal. 3. Left lower extremity erythema-local reaction versus cellulitis? On antibiotics empirically secondary to #1. 4. History of spina bifida with neurogenic bladder, neurogenic bowel, chronic back pain with lumbar spine surgery x2-continue home Lyrica regimen. 4. Anxiety/depression-appears to no longer be on regimen. Previously on buspirone and duloxetine. 5. History of migraines-continue home propanolol regimen. 6. Type 2 diabetes [id number] AC at bedtime. On Victoza. Hemoglobin A1c 09/03/2018 9.9%. 7. Hyperlipidemia-continue statin. 8. Morbid obesity-encourage diet and lifestyle modifications. 9. Chronic constipation due to neurogenic bowel from history of spina bifida-continue bowel regimen. DVT prophylaxis- SCDs. This patient was seen by NACHO Maravilla under the supervision of Dr. Anderson.
--- NOTE | 2019-04-05 15:32 | NURSING ---
317 WHITE UTI, SEPSIS
[2019-04-05] MEDS: DiphenhydrAMINE 50 MG/ML Syringe 25 MG IV (15:42)
[2019-04-05] MEDS: Ceftriaxone 1 GM/50 ML BAG IV (15:43)
[2019-04-05 16:30] VITALS: BMI 41.5
[2019-04-05 16:32] VITALS: BP 151/90; PULSE 88; RESP 18; TEMP 36.9; O2SAT 100
[2019-04-05 16:38] LABS: Mucous, Urine 0 SEEN /hpf (<or=2+)
[2019-04-05 16:41] LABS: Color, Urine Straw (Yellow); Glucose, Dipstick 50 mg/dl (Normal); Ketone-Dipstick Negative (Negative); Leukocyte Esterase-Dipstick 500 /ul (Negative); Nitrite-Dipstick Positive (Negative); Occult Blood-Urine 50 /ul (Negative); Protein-Dipstick 30 mg/dl (Negative); Urine Bilirubin Dipstick Negative (Negative); Urine Clarity Cloudy (Clear); Urine Urobilinogen Normal (Normal); Urine pH 6.5 (5.0 - 8.0)
[2019-04-05 16:58] LABS: Amorphous Sediment 1+; Bacteria 3+ /hpf (None Seen); Red Blood Cells-Urine 0-5 SEEN /hpf (0-5); Squamous Epithelial Cells - UA 0-5 SEEN /hpf (5-10); White Blood Cells 50-100 SEEN /hpf (0-5)
[2019-04-05 17:15] VITALS: O2SAT 99
[2019-04-05 17:25] LABS: Bedside Glucose 158 mg/dL (70-110)
[2019-04-05] MEDS: 0.9% Normal Saline 1,000 ML 100 ML IV (17:25)
[2019-04-05] MEDS: Insulin Lispro 100 UNIT/ML INSULN.PEN SC ×2 (17:27→21:14)
[2019-04-05] MEDS: Furosemide 20 MG Tablet PO (17:27)
[2019-04-05] MEDS: HYDROcodone Bitartrate/Apap 5/325 Tablet PO (18:13)
[2019-04-05 18:53] LABS: Reflex Lactate? Y
[2019-04-05 19:43] LABS: Lactic Acid 2.3 mmol/L (0.4-2.0)
[2019-04-05 20:42] VITALS: BP 104/47; PULSE 96; RESP 18; TEMP 37.6; O2SAT 95
[2019-04-05] MEDS: Atorvastatin Calcium 10 MG Tablet PO (21:14)
[2019-04-05] MEDS: 0.9% Saline Lock 10 ML Syringe IV (21:34)
[2019-04-05] MEDS: Morphine 2 MG/ML Syringe IV (21:35)
[2019-04-05 22:16] LABS: Bedside Glucose 238 mg/dL (70-110)
[2019-04-06 02:14] VITALS: BP 110/72; PULSE 79; RESP 16; TEMP 37.1; O2SAT 93
[2019-04-06] MEDS: 0.9% Normal Saline 1,000 ML 100 ML IV ×3 (02:32→22:51)
[2019-04-06] MEDS: Insulin Lispro 100 UNIT/ML INSULN.PEN SC ×4 (06:44→21:27)
[2019-04-06] MEDS: HYDROcodone Bitartrate/Apap 5/325 Tablet PO (06:49)
[2019-04-06 07:18] LABS: Absolute Lymphocyte Count 1.89 X10^3/uL (0.83-4.51); Absolute Neutrophil Count 6.8 X10^3/uL (2.0-7.7); Basophil# 0.06 X10^3/uL; Basophil% 0.6 % (0-1); Eosinophil# 0.39 X10^3/uL; Eosinophils% 3.8 % (0-5); Hematocrit 33.6 % (37-47); Lymphocyte # 1.89 X10^3/ul (4.0); Lymphocyte % 18.4 % (19-41); Mean Corp Hgb Conc 32.7 g/dL (32-36); Mean Corpuscular Hgb 29.4 pg (27.0-32.0); Mean Corpuscular Volume 89.8 fL (81-99); Mean Platelet Vol. 10.7 fl (6.2-12.0); Monocyte# 1.06 X10^3/uL; Monocyte% 10.3 % (0-10); NRBC Flagged by Analyzer 0 % (0-5); Neutrophil # 6.78 X10^3/uL (2.7-7.7); Neutrophil % 66.2 % (47-70); Platelet Count 210 K/mm3 (150-450); RBC Distribution Width CV 14.1 % (11.6-14.6); RBC Distribution Width SD 46.2 fl (35.1-43.9); Red Blood Count 3.74 M/mm3 (4.2-5.4); White Blood Count 10.3 K/mm3 (4.4-11.0)
[2019-04-06 07:26] LABS: Bedside Glucose 178 mg/dL (70-110)
[2019-04-06 07:36] LABS: Anion Gap 6 (5-15); BUN 8 mg/dL (7-18); Calcium,Total 8.4 mg/dL (8.5-10.1); Chloride 106 mmol/L (98-107); EST Glomerular Filtration Rate 85 mL/min (>60); Est Glom Filt Rate - Afr Amer 103 mL/min (>60); Estimated Creatinine Clearance 76.15 ml/min; Glucose 202 mg/dL (74-106); Potassium 3.7 mmol/L (3.5-5.1); Sodium Level 137 mmol/L (136-145)
[2019-04-06 08:00] VITALS: BP 115/75; PULSE 72; RESP 18; TEMP 36.9; O2SAT 96
[2019-04-06] MEDS: proCHLORPERazine 10 MG/2 ML Vial 5 MG IV (08:32)
[2019-04-06] MEDS: Morphine 2 MG/ML Syringe IV ×3 (08:32→21:22)
[2019-04-06] MEDS: 0.9% Saline Lock 10 ML Syringe IV ×3 (08:32→21:22)
[2019-04-06 08:49] LABS: Lactic Acid 1.2 mmol/L (0.4-2.0)
[2019-04-06] MEDS: Loratadine 10 MG Tablet PO (09:41)
[2019-04-06] MEDS: Propranolol 10 MG Tablet PO (09:41)
[2019-04-06] MEDS: Tolterodine Tartrate 4 MG CAP.SA PO (09:41)
[2019-04-06] MEDS: levoFLOXacin IV 500 MG/100 ML BAG 100 MG IV (09:42)
[2019-04-06] MEDS: Furosemide 40 MG Tablet PO ×2 (09:42→17:16)
[2019-04-06] MEDS: Psyllium 1 PACKET PO (09:50)
[2019-04-06] MEDS: Ceftriaxone 1 GM/50 ML BAG IV (10:46)
--- NOTE | 2019-04-06 11:23 | CM.UR ---
RN CM Assessment Introduced role of RN CM to patient. Patient is alert and able to participate in RN CM Assessment. Care providers, pharmacy, and demographics verified. at bedside. Presentation: cloudy urine, pain, fever and chills and weakness. Admit Dx: UTI Re-Admit: No Barriers/Issues: Spina bifida PCP: Vazquez Specialists: Dr. renteria (podiatry), Dr. Faria at [facility], Dr. Calix (neuro), Dr Sears (urology at [facility]). [facility] also has Dr. Box locally to get suprapubic catheter changed every 2 weeks instead of going to [facility]. Preferred Pharmacy: [facility] Insurance: [facility] and [facility] Rx Benefit: Yes. [facility] rx benefit changed and she just got new cards but she isn't aware of all the details yet. LNOK: freddie LW/HPOA: None. Declines info stating she has it all at home just hasn't done anything yet. Living Arrangements: Lives with and her father. they live on main level of home. Has bedroom and bathroom on first floor. ADL?s: assists her as needed. States that he is now between jobs so he is there all the time now. She previously had waiver but does not currently and does not want to get it restarted. Transportation: drives DME: cane, walker x2, wheelchair x3 (as she now has an electric w/c), shower chair. Gets all catheter supplies from urologist office. HHC: Has personal touch before. She was sent home from [facility] with [facility] but only came a short time because foot wound was essentially healed. SNF: [facility] with most recent discharge on 02/09/19 for diabetic foot wound. Goal: Return home. Denies any needs at this time. DC PLAN: Home, no needs anticipated. Corrine Alfaro RN, CCM.
[2019-04-06 11:25] VITALS: O2SAT 98
[2019-04-06 12:11] LABS: Bedside Glucose 232 mg/dL (70-110)
--- NOTE | 2019-04-06 13:34 | PCM.PROGNOTE ---
Subjective: Patient seen and examined. Complains of right pelvic and right flank pain. Reports bladder spasms. Had episode of nausea this morning without emesis. Denies other complaints. - Physical Exam Vitals/I&O's: Vital Signs Temp Pulse Resp BP Pulse Ox 98.4 F 72 18 115/75 98 04/06/19 08:00 04/06/19 08:00 04/06/19 08:00 04/06/19 08:00 04/06/19 11:25 Oxygen Delivery Method Room Air Weight: 227 lb Body Mass Index (BMI) 41.5 Finger Stick Blood Glucose 171 Intake and Output for Last 24 Hours 04/04/19 04/05/19 04/06/19 23:59 23:59 23:59 Intake Total 550 / 1150 2901.67 / 2901.67 Output Total 500 / 1700 1500 / 1500 Balance 50 / -550 1401.67 / 1401.67 General: Alert, Oriented x3, Cooperative HEENT: Atraumatic, PERRLA, EOMI, Normocephalic Neck: Supple, No JVD, Negative Carotid Bruits Lungs: Clear to auscultation, Normal air movement Cardiovascular: Regular rate, Regular Rhythm, Normal S1, Normal S2, No murmurs Abdomen: Bowel Sounds Present, Soft, Non Tender, Non-Distended, Obese, - - Suprapubic catheter in place, cloudy urine. Extremities: No clubbing, No cyanosis, No edema, Capillary Refill Less than 3 Seconds Skin: No rashes, No breakdown Musculoskeletal: No Tenderness to Palpation of Joints or Extremities Neurological: Cranial nerves II-XII grossly intact, Neuro grossly intact Psych/Mental Status: Normal Affect, Appropriate Microbiology Past 72 Hours 04/05/19 15:30 Urine Catheter - Morales Urine Culture - Preliminary Gram negative sue Laboratory Results 04/05/19 14:45: WBC 16.8 H, RBC 4.61, Hgb 13.4, Hct 41.0, MCV 88.9, MCH 29.1, MCHC 32.7, RDW Std Deviation 44.6 H, RDW Coeff of Claude 13.7, Plt Count 253, MPV 10.6, Immature Gran % (Auto) 0.500, Neut % (Auto) 84.4 H, Lymph % (Auto) 7.7 L, Wilbarger % (Auto) 4.6, Eos % (Auto) 2.3, Baso % (Auto) 0.5, Absolute Neuts (auto) 14.2 H, Absolute Lymphs (auto) 1.30, Nucleated RBC % 0 04/05/19 14:45: Sodium 136, Potassium 3.7, Chloride 102, Carbon Dioxide 27.0, Anion Gap 7, BUN 9, Creatinine 0.91, Estim Creat Clear Calc 66.95, Est GFR (MDRD) Af Amer 89, Est GFR (MDRD) Non-Af 74, BUN/Creatinine Ratio 9.9 L, Glucose 216 H, Calcium 9.4 04/05/19 14:45: Lactic Acid 2.0 04/05/19 15:30: Urine Color Straw, Urine Clarity Cloudy, Urine pH 6.5, Ur Specific Caspar 1.010, Urine Protein 30 H, Urine Glucose (UA) 50 H, Urine Ketones Negative, Urine Occult Blood 50 H, Urine Nitrite Positive H, Urine Bilirubin Negative, Urine Urobilinogen Normal, Ur Leukocyte Esterase 500 H, Urine RBC 0-5 SEEN, Urine WBC 50-100 SEEN, Ur Squamous Epith Cells 0-5 SEEN, Amorphous Sediment 1+, Urine Bacteria 3+, Urine Mucus 0 SEEN 04/05/19 17:21: POC Glucose 158 H 04/05/19 19:08: Lactic Acid 2.3 H 04/05/19 21:10: POC Glucose 238 H 04/06/19 06:34: Sodium 137, Potassium 3.7, Chloride 106, Carbon Dioxide 25.0, Anion Gap 6, BUN 8, Creatinine 0.80, Estim Creat Clear Calc 76.15, Est GFR (MDRD) Af Amer 103, Est GFR (MDRD) Non-Af 85, BUN/Creatinine Ratio 10.0, Glucose 202 H, Calcium 8.4 L 04/06/19 06:34: WBC 10.3, RBC 3.74 L, Hgb 11.0 L, Hct 33.6 L, MCV 89.8, MCH 29.4, MCHC 32.7, RDW Std Deviation 46.2 H, RDW Coeff of Claude 14.1, Plt Count 210, MPV 10.7, Immature Gran % (Auto) 0.700, Neut % (Auto) 66.2, Lymph % (Auto) 18.4 L, Wilbarger % (Auto) 10.3 H, Eos % (Auto) 3.8, Baso % (Auto) 0.6, Absolute Neuts (auto) 6.8, Absolute Lymphs (auto) 1.89, Nucleated RBC % 0 04/06/19 06:42: POC Glucose 178 H 04/06/19 08:08: Lactic Acid 1.2 04/06/19 12:06: POC Glucose 232 H Current Medications Acetaminophen (Tylenol) 650 mg PO Q6H PRN PRN PRN Reason: Non-cardiac pain (mod-severe) Hydrocodone Bitart/Acetaminophen (Victoria 5mg-325mg) 1 - 2 tablet PO Q6H PRN PRN PRN Reason: Pain Score 4-10/10 Last Admin: 04/06/19 06:49 Dose: 1 tablet Documented by: Al Hydroxide/Mg Hydroxide (Mylanta Ii) 15 - 30 ml PO Q4H PRN PRN PRN Reason: INDIGESTION Albuterol Sulfate (Ventolin Aerosols) 2.5 mg INHALATION Q2H PRN PRN PRN Reason: dyspnea, wheezing Atorvastatin Calcium (Lipitor) 10 mg PO QHS [facility] Last Admin: 04/05/19 21:14 Dose: 10 mg Documented by: Dextrose (D50w Syringe) 0 gm IV X1 PRN; Protocol PRN Reason: Hypoglycemia Enoxaparin Sodium (Lovenox) 40 mg SC DAILY@1000 [facility] Last Admin: 04/06/19 10:48 Dose: Not Given Documented by: Furosemide (Lasix) 20 mg PO DAILY@1700 [facility] Last Admin: 04/05/19 17:27 Dose: 20 mg Documented by: Furosemide (Lasix) 40 mg PO DAILY [facility] Last Admin: 04/06/19 09:42 Dose: 40 mg Documented by: Glucagon () 1 mg IM .X1 PRN PRN Reason: Hypoglycemia Hydralazine HCl (Apresoline Iv) 10 mg IV Q4H PRN PRN PRN Reason: SBP > 160 Sodium Chloride () 1,000 mls @ 100 mls/hr IV .Q10H [facility] Last Admin: 04/06/19 13:23 Dose: 100 mls/hr Documented by: Ceftriaxone Sodium (Rocephin) 1 gm in 50 mls @ 100 mls/hr IV Q24 [facility] Last Infusion: 04/06/19 11:16 Dose: Infused Documented by: Levofloxacin (Levaquin Iv) 500 mg in 100 mls @ 100 mls/hr IV Q24 [facility] Last Infusion: 04/06/19 10:45 Dose: Infused Documented by: Insulin Human Lispro (Humalog Kwikpen (Bkc)) 0 unit SC ACHS [facility]; Protocol Last Admin: 04/06/19 13:26 Dose: 3 u Documented by: Loratadine (Claritin) 10 mg PO DAILY [facility] Last Admin: 04/06/19 09:41 Dose: 10 mg Documented by: Magnesium Hydroxide (Milk Of Magnesia) 30 ml PO DAILY PRN PRN Reason: Constipation Morphine Sulfate () 1 mg IV Q2H PRN PRN PRN Reason: Pain Score 1-10/10 Prochlorperazine Edisylate (Compazine Iv) 5 mg IV Q4H PRN PRN PRN Reason: NAUSEA/VOMITING Last Admin: 04/06/19 08:32 Dose: 5 mg Documented by: Propranolol HCl (Inderal) 10 mg PO DAILY [facility] Last Admin: 04/06/19 09:41 Dose: 10 mg Documented by: Psyllium Hydrophilic Mucilloid (Metamucil) 1 packet PO DAILYCM [facility] Last Admin: 04/06/19 09:50 Dose: 1 packet Documented by: Sodium Chloride () 10 - 40 ml IV UD PRN PRN Reason: SALINE FLUSH Last Admin: 04/06/19 08:32 Dose: 10 ml Documented by: Tolterodine Tartrate (Detrol La) 4 mg PO DAILY [facility] Last Admin: 04/06/19 09:41 Dose: 4 mg Documented by: Medical Necessity - Tobacco Use Smoking Status: Never smoker Tobacco Use: Non-smoker Assessment/Plan All Active Problems (Last Reviewed 12/13/18 @ 21:23 by Gen Butt MD) UTI (urinary tract infection) (Acute) Sepsis (Acute) Infection of bladder catheter (Acute) UTI (urinary tract infection) (Resolved) 1. Acute sepsis secondary to acute complicated UTI with chronic suprapubic catheter secondary to neurogenic bladder-on IV Rocephin and IV Levaquin. Prior urine culture with multiple organisms including stenotrophomonas, staph, Enterobacter, Corynebacterium, and Serratia marcescens. Follow urine culture. Blood cultures pending. Add Pyridium for bladder spasm. 2. Left stage III heel diabetic wound- Follows with Dr. Faria. Daily dressing changes with Aquacel Ag and dry sterile dressing. Wound RN consult. Offloading left heal. 3. Left lower extremity erythema-resolved. Cellulitis ruled out. Suspect localized reaction. 4. History of spina bifida with neurogenic bladder, neurogenic bowel, chronic back pain with lumbar spine surgery x2-previously on Lyrica, does not appear to be on regimen currently. 4. Anxiety/depression-appears to no longer be on regimen. Previously on buspirone and duloxetine. 5. History of migraines-continue home propanolol regimen. 6. Type 2 diabetes [id number] ACHS. On Victoza. Hemoglobin A1c 09/03/2018 9.9%. 7. Hyperlipidemia-continue statin. 8. Morbid obesity-encourage diet and lifestyle modifications. 9. Chronic constipation due to neurogenic bowel from history of spina bifida-continue bowel regimen. DVT prophylaxis- SCDs. This patient was seen by NACHO Maravilla under the supervision of Dr. Eli.
[2019-04-06 14:00] VITALS: BP 98/62; PULSE 72; RESP 18; TEMP 36.8; O2SAT 97
[2019-04-06] MEDS: Phenazopyridine 95 MG Tablet 190 MG PO ×2 (14:15→21:16)
[2019-04-06 16:35] LABS: Bedside Glucose 242 mg/dL (70-110)
[2019-04-06] MEDS: Furosemide 20 MG Tablet PO (17:17)
--- NOTE | 2019-04-06 18:57 | NURSING ---
pt resting in bed with eyes closed
[2019-04-06] MEDS: Atorvastatin Calcium 10 MG Tablet PO (21:17)
[2019-04-06 21:20] VITALS: BP 118/73; PULSE 75; RESP 16; TEMP 36.9; O2SAT 100
[2019-04-06 21:35] LABS: Bedside Glucose 262 mg/dL (70-110)
[2019-04-07] MEDS: Phenazopyridine 95 MG Tablet 190 MG PO ×2 (05:04→15:24)
[2019-04-07] MEDS: Morphine 2 MG/ML Syringe IV ×2 (05:08→08:11)
[2019-04-07] MEDS: 0.9% Saline Lock 10 ML Syringe IV ×2 (05:09→08:12)
[2019-04-07 05:12] VITALS: BP 109/69; PULSE 68; RESP 16; TEMP 36.7; O2SAT 95
[2019-04-07] MEDS: Insulin Lispro 100 UNIT/ML INSULN.PEN SC ×2 (06:39→11:29)
[2019-04-07 06:46] LABS: Bedside Glucose 183 mg/dL (70-110)
[2019-04-07 08:10] VITALS: PULSE 64
[2019-04-07] MEDS: Psyllium 1 PACKET PO (08:11)
[2019-04-07] MEDS: 0.9% Normal Saline 1,000 ML 100 ML IV (09:18)
[2019-04-07] MEDS: Ceftriaxone 1 GM/50 ML BAG IV (09:20)
[2019-04-07 11:15] VITALS: O2SAT 97
[2019-04-07 11:24] VITALS: BP 108/63; PULSE 67; RESP 16; TEMP 36.6; O2SAT 95
--- NOTE | 2019-04-07 11:24 | DCINST_ITS ---
You will use the following diet at home:: Calorie/Carbohydrate Controlled (specify 1200, 1400, etc) Discharge Activity: Return to Normal Activity Call your doctor if you observe: Fever of 101 or Higher, Shortness of breath, Dizziness, Fainting spells, Chest pain Allergies/Adverse Reactions: Allergies mushroom Allergy (Verified 04/05/19 13:47) Anaphylaxis peanut Allergy (Verified 04/05/19 13:47) Anaphylaxis Gadolinium-MRI Contrast Medium Adverse Reaction (Verified 04/05/19 13:47) Vomiting Latex, Natural Rubber Adverse Reaction (Verified 04/05/19 13:47) Rash Medications to take at Discharge Atorvastatin Calcium [Lipitor] 10 mg PO QHS 11/07/17 Pseudoephedrine HCl [Sudogest] 30 mg PO Q6H PRN PRN 01/21/18 Furosemide [Lasix] 20 mg PO DAILY@1700 08/28/18 Loratadine [Claritin] 10 mg PO DAILY 08/28/18 Propranolol HCl 10 mg PO DAILY 08/28/18 Phenazopyridine HCl [Pyridium] 200 mg PO Q8H PRN PRN #14 tab 12/08/18 Metformin HCl 1,000 mg PO BID 02/18/19 Liraglutide [Victoza 3-Kenneth] 1.8 mg SQ DAILY 02/26/19 Furosemide [Lasix] 40 mg PO DAILY 04/05/19 Oxybutynin Chloride [Oxybutynin Chloride ER] 15 mg PO DAILY 04/05/19 Psyllium Husk [Metamucil] 15 ml PO DAILY 04/05/19 Cefadroxil Hydrate [Duricef] 1,000 mg PO BID 10 Days #40 cap 04/07/19 The following prescriptions were given: Cefadroxil Hydrate [Duricef] 1,000 mg PO BID 10 Days #40 cap Transmission Status: Pending to [facility] Primary Care Physician: Will Shukla MD [Primary Care Provider] - Please follow up with your Primary Care Physician in: 1 Week Test Results: Test results from this visit will be discussed in further detail at your follow- up appointment, if applicable. Please Follow Up With: Jose Faria DPM When: As scheduled for foot wound Please Follow Up With: [facility] When: 1-2 Weeks Proposed Discharge Date: 04/07/19
--- NOTE | 2019-04-07 11:26 | PCM.DC.SUM ---
Discharge Date and Diagnosis Date of Admission: 04/05/19 Date of Discharge: 04/07/19 - Primary Discharge Diagnosis 1. Acute sepsis secondary to acute pyelonephritis as as result of complicated serratia marcescens UTI with chronic suprapubic catheter secondary to neurogenic bladder 2. Left stage III heel diabetic wound, present on admission 3. Left lower extremity erythema, resolved, localized reaction. 4. History of spina bifida with neurogenic bladder, neurogenic bowel, chronic back pain with lumbar spine surgery x2 4. Anxiety/depression 5. History of migraines 6. Type 2 diabetes mellitus 7. Hyperlipidemia 8. Morbid obesity 9. Chronic constipation due to neurogenic bowel from history of spina bifida - Secondary Discharge Diagnosis Chronic Problems (Last Reviewed 12/13/18 @ 21:23 by Gen Butt MD) Non-compliance (Chronic) Normochromic normocytic anemia (Chronic) HGB normal in Apr 2018 Diabetic ulcer of left heel with fat layer exposed (Chronic) Type 2 diabetes mellitus with diabetic polyneuropathy (Chronic) Delayed wound healing (Chronic) Lower extremity edema (Chronic) Ulcer of left heel and midfoot with fat layer exposed (Chronic) Constipation (Chronic) Neurogenic bowel (Chronic) Neurogenic bladder (Chronic) Chronic back pain (Chronic) History of migraine (Chronic) Depression (Chronic) Spina bifida aperta of lumbar spine (Chronic) s/p surgery x 2 weakness and numbness in legs neurogenic bladder and frequent UTIs Morbid obesity with BMI of 40.0-44.9, adult (Chronic) Diabetes mellitus, type II (Chronic) not well controlled Hydronephrosis of right kidney (Chronic) Consult dictated, For now Treat UTI and make sure pt does self cath. Will follow, no need yet for cysto retros etc. 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 1. Acute sepsis secondary to acute pyelonephritis as a result of complicated Serratia marcescens UTI with chronic suprapubic catheter secondary to neurogenic bladder-Prior urine culture with multiple organisms including stenotrophomonas, staph, Enterobacter, Corynebacterium, and Serratia marcescens. Blood cultures negative. Urine culture grew for Serratia marcescens. Discharge on Duricef 1000 mg twice daily for 10 days. Follow-up with primary urologist in 1 week. Follow-up with primary care provider in 1 week. 2. Left stage III heel diabetic wound, present on admission- Follows with Dr. Faria. Daily dressing changes with Aquacel Ag and dry sterile dressing. Wound RN consult. Offloading left heal. Follow-up with podiatry as scheduled. 3. Left lower extremity erythema-resolved. Cellulitis ruled out. Suspect localized reaction. 4. History of spina bifida with neurogenic bladder, neurogenic bowel, chronic back pain with lumbar spine surgery x2-previously on Lyrica, does not appear to be on regimen currently. 4. Anxiety/depression-appears to no longer be on regimen. Previously on buspirone and duloxetine. 5. History of migraines-continue home propanolol regimen. 6. Type 2 diabetes mellitus- On Victoza. Hemoglobin A1c 09/03/2018 9.9%. 7. Hyperlipidemia-continue statin. 8. Morbid obesity-encourage diet and lifestyle modifications. 9. Chronic constipation due to neurogenic bowel from history of spina bifida-continue bowel regimen. General: Alert, Oriented x3, Cooperative HEENT: Atraumatic, PERRLA, EOMI, Normocephalic Neck: Supple, No JVD, Negative Carotid Bruits Lungs: Clear to auscultation, Normal air movement Cardiovascular: Regular rate, Regular Rhythm, Normal S1, Normal S2, No murmurs Abdomen: Bowel Sounds Present, Soft, Non Tender, Non-Distended, Obese, - - Suprapubic catheter in place, cloudy urine. Extremities: No clubbing, No cyanosis, No edema, Capillary Refill Less than 3 Seconds Skin: No rashes, No breakdown Musculoskeletal: No Tenderness to Palpation of Joints or Extremities Neurological: Cranial nerves II-XII grossly intact, Neuro grossly intact Psych/Mental Status: Normal Affect, Appropriate Patient seen and examined prior to discharge. Physical assessment as noted above. Patient is stable for discharge with follow up recommendations as noted above. This patient was seen by NACHO Maravilla under the supervision of Dr. Eli. - Physical Exam Vitals/I&O's: Vital Signs Temp Pulse Resp BP Pulse Ox 97.9 F 67 16 108/63 95 04/07/19 11:24 04/07/19 11:24 04/07/19 11:24 04/07/19 11:24 04/07/19 11:24 Oxygen Delivery Method Room Air Weight: 227 lb Body Mass Index (BMI) 41.5 Finger Stick Blood Glucose 171 Intake and Output for Last 24 Hours 04/05/19 04/06/19 04/07/19 23:59 23:59 23:59 Intake Total 550 / 1150 4928.34 / 4928.34 1053.33 / 1053.33 Output Total 500 / 1700 5800 / 5800 400 / 400 Balance 50 / -550 -871.66 / -871.66 653.33 / 653.33 Microbiology Past 72 Hours 04/05/19 15:30 Urine Catheter - Morales Urine Culture - Final Serratia marcescens 04/05/19 15:42 Blood Culture (Wb) - Right Forearm Blood Culture - Preliminary No growth in 48 hours. 04/05/19 14:45 Blood Culture (Wb) - Anticubital Right Blood Culture - Preliminary No growth in 48 hours. Laboratory Results 04/06/19 12:06: POC Glucose 232 H 04/06/19 16:29: POC Glucose 242 H 04/06/19 21:26: POC Glucose 262 H 04/07/19 06:37: POC Glucose 183 H Current Medications Acetaminophen (Tylenol) 650 mg PO Q6H PRN PRN PRN Reason: Non-cardiac pain (mod-severe) Hydrocodone Bitart/Acetaminophen ([place] 5mg-325mg) 1 - 2 tablet PO Q6H PRN PRN PRN Reason: Pain Score 4-10/10 Last Admin: 04/06/19 06:49 Dose: 1 tablet Documented by: Al Hydroxide/Mg Hydroxide (Mylanta Ii) 15 - 30 ml PO Q4H PRN PRN PRN Reason: INDIGESTION Albuterol Sulfate (Ventolin Aerosols) 2.5 mg INHALATION Q2H PRN PRN PRN Reason: dyspnea, wheezing Atorvastatin Calcium (Lipitor) 10 mg PO QHS DERIAN Last Admin: 04/06/19 21:17 Dose: 10 mg Documented by: Dextrose (D50w Syringe) 0 gm IV X1 PRN; Protocol PRN Reason: Hypoglycemia Enoxaparin Sodium (Lovenox) 40 mg SC DAILY@1000 DERIAN Last Admin: 04/06/19 10:48 Dose: Not Given Documented by: Furosemide (Lasix) 20 mg PO DAILY@1700 [facility] Last Admin: 04/06/19 17:17 Dose: 20 mg Documented by: Furosemide (Lasix) 40 mg PO DAILY [facility] Last Admin: 04/06/19 17:16 Dose: 40 mg Documented by: Glucagon () 1 mg IM .X1 PRN PRN Reason: Hypoglycemia Hydralazine HCl (Apresoline Iv) 10 mg IV Q4H PRN PRN PRN Reason: SBP > 160 Sodium Chloride () 1,000 mls @ 100 mls/hr IV .Q10H [facility] Last Infusion: 04/07/19 09:50 Dose: 100 mls/hr Documented by: Ceftriaxone Sodium (Rocephin) 1 gm in 50 mls @ 100 mls/hr IV Q24 [facility] Last Infusion: 04/07/19 09:50 Dose: Infused Documented by: Levofloxacin (Levaquin Iv) 500 mg in 100 mls @ 100 mls/hr IV Q24 [facility] Last Infusion: 04/06/19 10:45 Dose: Infused Documented by: Insulin Human Lispro (Humalog Kwikpen (Bkc)) 0 unit SC [facility]; Protocol Last Admin: 04/07/19 06:39 Dose: 1 u Documented by: Loratadine (Claritin) 10 mg PO DAILY [facility] Last Admin: 04/06/19 09:41 Dose: 10 mg Documented by: Magnesium Hydroxide (Milk Of Magnesia) 30 ml PO DAILY PRN PRN Reason: Constipation Morphine Sulfate () 1 - 2 mg IV Q2H PRN PRN PRN Reason: Pain Score 1-10/10 Last Admin: 04/07/19 08:11 Dose: 2 mg Documented by: Phenazopyridine HCl (Azo Standard) 190 mg PO TID [facility] Stop: 04/08/19 14:01 Last Admin: 04/07/19 05:04 Dose: 190 mg Documented by: Prochlorperazine Edisylate (Compazine Iv) 5 mg IV Q4H PRN PRN PRN Reason: NAUSEA/VOMITING Last Admin: 04/06/19 08:32 Dose: 5 mg Documented by: Propranolol HCl (Inderal) 10 mg PO DAILY [facility] Last Admin: 04/06/19 09:41 Dose: 10 mg Documented by: Psyllium Hydrophilic [facility] Last Admin: 04/07/19 08:11 Dose: 1 packet Documented by: Sodium Chloride () 10 - 40 ml IV UD PRN PRN Reason: SALINE FLUSH Last Admin: 04/07/19 08:12 Dose: 10 ml Documented by: Tolterodine Tartrate (Detrol La) 4 mg PO DAILY [facility] Last Admin: 04/06/19 09:41 Dose: 4 mg Documented by: Discharge Diet: 1800 Calorie Control Diet, Carb Control Diet Discharge Activity: Return to Normal Activity Call your doctor if you observe: Fever of 101 or Higher, Shortness of breath, Dizziness, Fainting spells, Chest pain Home Medications: Medications to take at Discharge Atorvastatin Calcium [Lipitor] 10 mg PO QHS 11/07/17 Pseudoephedrine HCl [Sudogest] 30 mg PO Q6H PRN PRN 01/21/18 Furosemide [Lasix] 20 mg PO DAILY@1700 08/28/18 Loratadine [Claritin] 10 mg PO DAILY 08/28/18 Propranolol HCl 10 mg PO DAILY 08/28/18 Phenazopyridine HCl [Pyridium] 200 mg PO Q8H PRN PRN #14 tab 12/08/18 Metformin HCl 1,000 mg PO BID 02/18/19 Liraglutide [Victoza 3-Kenneth] 1.8 mg SQ DAILY 02/26/19 Furosemide [Lasix] 40 mg PO DAILY 04/05/19 Oxybutynin Chloride [Oxybutynin Chloride ER] 15 mg PO DAILY 04/05/19 Psyllium Husk [Metamucil] 15 ml PO DAILY 04/05/19 Cefadroxil Hydrate [Duricef] 1,000 mg PO BID 10 Days #40 cap 04/07/19 Following Prescrptions Were Given to Patient: Cefadroxil Hydrate [Duricef] 1,000 mg PO BID 10 Days #40 cap Transmission Status: Pending to [facility] Primary Care Physician: Will Shukla MD [Primary Care Provider] - Please follow up with your Primary Care Physician in: 1 Week Please Follow Up With: Jose Faria DPM When: As scheduled for foot wound Please Follow Up With: [facility] urology When: 1-2 Weeks Disposition: Home Minutes spent on discharge:: 35 Patient Condition:: Stable Medical Necessity - Tobacco Use Smoking Status: Never smoker Tobacco Use: Non-smoker Meaningful Use Info Meaningful Use Diagnoses (Choose all that apply): None applicable
[2019-04-07] MEDS: Furosemide 40 MG Tablet PO (11:29)
[2019-04-07] MEDS: Propranolol 10 MG Tablet PO (11:29)
[2019-04-07] MEDS: Tolterodine Tartrate 4 MG CAP.SA PO (11:29)
[2019-04-07] MEDS: Loratadine 10 MG Tablet PO (11:30)
[2019-04-07] MEDS: levoFLOXacin IV 500 MG/100 ML BAG 100 MG IV (11:30)
[2019-04-07 11:41] LABS: Bedside Glucose 205 mg/dL (70-110)
[2019-04-07] MEDS: HYDROcodone Bitartrate/Apap 5/325 Tablet PO (15:24)
[2019-04-07 15:27] VITALS: BP 109/74; PULSE 74; RESP 16; TEMP 36.6; O2SAT 96
--- NOTE | 2019-04-08 15:39 | CASEMGMT ---
VERNON BENITEZ Discharge Follow-up Phone Call: CHLOE: Sheldon Strata: 4 Call Date: 04/08/19 Discharge Date: 04/07/19 Time of Call: 1540 Duration: 3 min Admitting Diagnosis: Complaint, complicated bladder infection VERNON BENITEZ completed follow-up phone call after recent hospitalization. Patient states she is doing better. Patient had no questions regarding discharge instructions. Patient was able to pick-up partial fill of antibiotic prescriptions, states she will get the rest tomorrow. Patient to call PCP office in morning to schedule appt. Has appt with podiatry scheduled for . Patient voiced no further needs or concerns at this time.
== END 2019-04-07 15:42 | disposition home or self-care (01) | DRG 698 ==
LOC: ED 14:26 → MS3 15:51
PROVIDERS: Admitting Provider Family Medicine; Emergency Provider Emergency Medicine; Family Provider Family Medicine; PCP Family Medicine; Referring Provider Family Medicine; Visit Provider Internal Medicine
DX: T83.511A Infection and inflammatory reaction due to indwelling urethral catheter, initial encounter (principal); A41.9 Sepsis, unspecified organism; N10 Acute pyelonephritis; L97.422 Non-pressure chronic ulcer of left heel and midfoot with fat layer exposed; K59.2 Neurogenic bowel, not elsewhere classified; Z68.41 Body mass index [BMI] 40.0-44.9, adult; N13.6 Pyonephrosis; E87.2 Acidosis; N31.9 Neuromuscular dysfunction of bladder, unspecified; E66.01 Morbid (severe) obesity due to excess calories; E11.42 Type 2 diabetes mellitus with diabetic polyneuropathy; Z91.19 Patient's noncompliance with other medical treatment and regimen; F32.9 Major depressive disorder, single episode, unspecified; Q05.7 Lumbar spina bifida without hydrocephalus; Z93.59 Other cystostomy status; Z79.4 Long term (current) use of insulin; Z82.3 Family history of stroke; Z82.49 Family history of ischemic heart disease and other diseases of the circulatory system; Z83.3 Family history of diabetes mellitus; Z87.440 Personal history of urinary (tract) infections; Z90.49 Acquired absence of other specified parts of digestive tract; E78.5 Hyperlipidemia, unspecified; G43.909 Migraine, unspecified, not intractable, without status migrainosus; K59.09 Other constipation; I87.302 Chronic venous hypertension (idiopathic) without complications of left lower extremity
CPT/HCPCS: 11042; 36415; 80048; 81001; 82962; 83605; 85025; 87040; 87077; 87086; 87088; 87186; 97802; 99251; 99285; J7030; J7050; A4216; G0463; J2405

== ENCOUNTER 2019-04-11 08:30 | Outpatient (RCR) | payer MEDICARE, MEDICAID, SELFPAY ==
[2019-03-29 00:56] VITALS: BP 137/77; PULSE 87; RESP 18; TEMP 35.9
[2019-04-04 08:23] VITALS: BP 110/79; PULSE 79; RESP 18; TEMP 36.4; BMI 39.6
--- NOTE | 2019-04-04 09:01 | PN.PCM_ITS ---
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 Status: Chronic Code(s): E11.621 - Type 2 diabetes mellitus with foot ulcer; L97.422 - Non-pressure chronic ulcer of left heel and midfoot with fat layer exposed (2) Non-compliance Status: Acute Code(s): Z91.19 - Patient's noncompliance with other medical treatment and regimen (3) Type 2 diabetes mellitus with diabetic polyneuropathy Status: Chronic Code(s): E11.42 - Type 2 diabetes mellitus with diabetic polyneuropathy (4) Delayed wound healing Status: Acute Code(s): T14.8XXD - Other injury of unspecified body region, subsequent encounter (5) Lower extremity edema Status: Chronic Code(s): R60.0 - Localized edema Type of Wound Date of Service: 04/04/19 Chief Complaint: left heel ulcer History of Wound: This 38-year-old diabetic female was consulted to the wound healing center for left heel ulcer. Patient had been having treatment at the wound healing center a couple of months ago. Due to other health issues, being in and out of different hospitals and nursing homes, the patient has not been able to follow up here. She saw Dr. Gomez again last week for this issue, and he referred her back to the wound healing center again. She has been keeping the area dressed daily. She also relates that she has been doint her best to keep all pressure off of her left heel, but says at times she still does have pressure to the area. Progress of Wound: Patient presents for follow-up of left heel ulcer today with her . Improvement noted again this week. Patient currently denies any feelings of nausea, vomiting, fever, chills. - Physical Exam Vital Signs Temp Pulse Resp BP 97.6 F L 79 18 110/79 04/04/19 08:23 04/04/19 08:23 04/04/19 08:23 04/04/19 08:23 General: Alert, Oriented x3, Cooperative, No apparent distress Extremities: No cyanosis, Capillary Refill Less than 3 Seconds, No Calf Tenderness - Negative Angella and Pinto signs bilateral, Edema - Mild lower extremity edema, Peripheral Pulses Normal Skin: Ulcer/ Wound - Ulcer with fat layer exposed left heel. Improvement noted again today. The base is a mixture of adherent slough, devitalized subcutaneous tissue, fibrin, biofilm, granular tissue, and surrounding hyperkeratotic skin. There is no probing to bone, no tracking, no undermining, no purulence, no surrounding or extending cellulitis, no malodor, and no increase in warmth to the ulcer site at this time. Wound Measurements and Assessment WC - Nurse 1 - General Ulcer Measurement Start: 04/04/19 08:23 Freq: Status: Active Protocol: Activity Type Activity Date Activity User E-Sign Co-Sign Detail Recorded Client Recorded Date Recorded By Document 04/04/19 08:23 [email or web address] 04/04/19 08:28 DL 04/04/19 08:23 Wound Center Nurse 1 [Ulcer Assessment] 5. L heel -Current Size (cm) - Length 0.8 -Current Size (cm) - Width 0.8 -Current Size (cm) - Depth 0.2 -Total Square Cm 0.64 -Photo Taken No -Exudate Amt Small -Exudate Type Sanguineous -Wound Margin Distinct, Outline Attached -Granulation Amt Large (67-100%) -Granulation Quality Red -Necrosis Amt None Present (0 %) -Structure Exposed N/A -Texture (Joan-wound Skin Appearance) Callus -Moisture (Joan-wound Skin Appearance Dry/Scaly ) -Temperature (Joan-wound Skin No Abnormality Appearance) (Pt Warm) -Tenderness on Palpation (Joan-wound No Skin Appearance) -Ulcer Cleansing Rinsed/ Irrigated with Saline -Foul Odor after Cleansing No -Anesthetic Used 5% Lidocaine Gel [Edema Assessment] -Left Calf (cm) 46.6 -Left Ankle (cm) 24 - Nurse 2 - General Ulcer CM Notes Start: 04/04/19 08:23 Freq: Status: Active Protocol: Activity Type Activity Date Activity User E-Sign Co-Sign Detail Recorded Client Recorded Date Recorded By Document 04/04/19 08:49 [id number] 04/04/19 08:59 04/04/19 08:49 Wound Center Nurse 2 [Procedure/Treatment] 5. L heel -Time 08:55 -Correct Patient Yes -Correct Side, Site, Position Yes -Correct Procedure Yes -Procedure Performed Yes -Type of Procedure Debridement -Clinical Debridement Subcutaneous -Post Debridement Size (cm) - Length 2.2 -Post Debridement Size (cm) - Width 2.8 -Post Debridement Size (cm) - Depth 0.2 -Total Square Cm 6.16 -Wound/Ulcer Outcome Not Healed -Ulcer Cleansing Rinsed/ Irrigated with Saline -Foul Odor after Cleansing No -Bioengineered Tissue No -Bleeding Controlled with Pressure -Other walking boot -Offloading Yes -Treatment Response Procedure Tolerated Well [See Physician Procedure note for Specifics] Pain Scale: 0-10 Numeric [Pain] -Is Patient Pain Free? Yes Musculoskeletal: No Tenderness to Palpation of Joints or Extremities, - - No significant tenderness appreciated with ulcer site manipulation today Neurological: - - Epicritic sensation grossly absent bilateral lower extremities Psych/Mental Status: Normal Affect, Appropriate Debridement Note Post-Debridement Measurements/Treatment WC - Nurse 2 - General Ulcer CM Notes Start: 04/04/19 08:23 Freq: Status: Active Protocol: Activity Type Activity Date Activity User E-Sign Co-Sign Detail Recorded Client Recorded Date Recorded By Document 04/04/19 08:49 [id number] 04/04/19 08:59 04/04/19 08:49 Wound Center Nurse 2 5. L heel -Time 08:55 -Correct Patient Yes -Correct Side, Site, Position Yes -Correct Procedure Yes -Procedure Performed Yes -Type of Procedure Debridement -Clinical Debridement Subcutaneous -Post Debridement Size (cm) - Length 2.2 -Post Debridement Size (cm) - Width 2.8 -Post Debridement Size (cm) - Depth 0.2 -Total Square Cm 6.16 -Wound/Ulcer Outcome Not Healed -Ulcer Cleansing Rinsed/ Irrigated with Saline -Foul Odor after Cleansing No -Bioengineered Tissue No -Bleeding Controlled with Pressure -Other walking boot -Offloading Yes -Treatment Response Procedure Tolerated Well Pain Scale: 0-10 Numeric Is Patient Pain Free? Yes Wound debrided: Left heel Laterality: Left Type of Debridement: Excisional debridement Anesthesia Used: 5% Lidocaine Gel Depth: in the subcutaneous layer Percentage of wound debrided: 100 Instrument Used: #15 blade Tissue Removed: Devitalized subcutaneous tissue, adherent slough, fibrin, biofilm Severity: Fat Layer Exposed Amount of bleeding with debridement: Mild Bleeding Controlled with: Pressure Patient tolerated procedure well Assessment/Plan Assessment: Diabetic ulcer left heel. DM 2 with neuropathy. Other comorbidities Plan: Patient was carefully examined and evaluated again today for follow-up of left heel ulcer. Continued slow improvement noted again today. A subcutaneous debridement was performed as noted in the clinical panel. Once complete, the ulcer site was carefully cleansed and then dressed with Aquacel Ag to the base followed by dry sterile dressing. The patient is to have the dressing changed in this manner on a daily basis. The patient was instructed to keep the left heel offloaded at all times while seated or laying down. I stressed the importance of this and the patient's healing. She is to continue with offloading CAM Walker to the left side. She is to continue use of her motorized wheelchair. She is to keep the heel floated completely with nothing under it except air. I continue to recommend a diet high in protein to help optimize [facility] healing potential. The patient was educated on all signs and symptoms of local and systemic infection, and she was instructed to go to the emergency room immediately should she notice any of these. All other questions were answered to the patient's satisfaction today. The patient will follow back up in clinic in 1 week to check on progress, or sooner if needed before then.
[2019-04-11 08:23] VITALS: BP 112/81; PULSE 80; RESP 16; BMI 39.6
--- NOTE | 2019-04-11 08:48 | PCM.WC.PN ---
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 (2) Non-compliance Status: Chronic Current Visit: No Code(s): Z91.19 - Patient's noncompliance with other medical treatment and regimen (3) Type 2 diabetes mellitus with diabetic polyneuropathy Status: Chronic Current Visit: No Code(s): E11.42 - Type 2 diabetes mellitus with diabetic polyneuropathy (4) Delayed wound healing Status: Chronic Current Visit: No Code(s): T14.8XXD - Other injury of unspecified body region, subsequent encounter (5) Lower extremity edema Status: Chronic Current Visit: No Code(s): R60.0 - Localized edema Type of Wound Date of Service: 04/11/19 Chief Complaint: left heel ulcer History of Wound: This 38-year-old diabetic female was consulted to the wound healing center for left heel ulcer. Patient had been having treatment at the wound healing center a couple of months ago. Due to other health issues, being in and out of different hospitals and nursing homes, the patient has not been able to follow up here. She saw Dr. Gomez again last week for this issue, and he referred her back to the wound healing center again. She has been keeping the area dressed daily. She also relates that she has been doint her best to keep all pressure off of her left heel, but says at times she still does have pressure to the area. Progress of Wound: Patient presents for follow-up of left heel ulcer. Continued improvement appreciated. Patient currently denies any feelings of nausea, vomiting, fever, chills. - Physical Exam Vital Signs Temp Pulse Resp BP 97.6 F L 80 16 112/81 H 04/04/19 08:23 04/11/19 08:23 04/11/19 08:23 04/11/19 08:23 General: Alert, Oriented x3, Cooperative, No apparent distress Extremities: No cyanosis, Capillary Refill Less than 3 Seconds, No Calf Tenderness - Negative Angella and Pinto signs bilateral, Edema - Mild lower extremity edema, Peripheral Pulses Normal Skin: Ulcer/ Wound - Ulcer with fat layer exposed left heel. The base is a mixture of adherent slough, devitalized subcutaneous tissue, fibrin, biofilm, granular tissue, and surrounding hyperkeratotic skin. There is no probing to bone, no tracking, no undermining, no purulence, no surrounding or extending cellulitis, no malodor, and no increase in warmth to the ulcer site at this time. Wound Measurements and Assessment - Nurse 1 - General Ulcer Measurement Start: 04/04/19 08:23 Freq: Status: Active Protocol: Activity Type Activity Date Activity User E-Sign Co-Sign Detail Recorded Client Recorded Date Recorded By Document 04/11/19 08:23 [email or web address] [id number] 04/11/19 08:26 GABRIEL 04/11/19 08:23 Wound Center Nurse 1 [Ulcer Assessment] 5. L heel -Combined with other wound No -Current Size (cm) - Length 3.5 -Current Size (cm) - Width 1.0 -Current Size (cm) - Depth 0.1 -Total Square Cm 3.50 -Photo Taken No -Epithelialization None Present -Tunneling No -Undermining/Tunneling No -Circular Undermining No -Classification - Thickness Full Thickness without Exposed Support Structure -Exudate Amt None Present -Wound Margin Flat & Intact -Granulation Amt None Present (0 %) -Granulation Quality N/A -Slough/Fibrin Yes -Necrosis Amt Large (67-100%) -Necrotic Tissue Type Adherent Slough -Texture (Joan-wound Skin Appearance) Assessed, Scarring -Moisture (Joan-wound Skin Appearance Assessed,Dry/ ) Scaly -Color (Joan-wound Skin Appearance) No Abnormality, Assessed -Temperature (Joan-wound Skin No Abnormality Appearance) (Pt Warm) -Tenderness on Palpation (Joan-wound No Skin Appearance) -Ulcer Cleansing Rinsed/ Irrigated with Saline -Foul Odor after Cleansing No -Anesthetic Used 4% Lidocaine Solution - Nurse 2 - General Ulcer CM Notes Start: 04/04/19 08:23 Freq: Status: Active Protocol: Activity Type Activity Date Activity User E-Sign Co-Sign Detail Recorded Client Recorded Date Recorded By Document 04/11/19 08:33 [id number] 04/11/19 08:46 04/11/19 08:33 Wound Center Nurse 2 [Procedure/Treatment] -Correct Patient Yes -Correct Side, Site, Position Yes -Correct Procedure Yes -Procedure Performed Yes -Type of Procedure Debridement -Clinical Debridement Subcutaneous -Post Debridement Size (cm) - Length 1 -Post Debridement Size (cm) - Width 1 -Post Debridement Size (cm) - Depth 0.2 -Total Square Cm 1 -Wound/Ulcer Outcome Not Healed -Ulcer Cleansing Rinsed/ Irrigated with Saline -Foul Odor after Cleansing No -Bioengineered Tissue No -Bleeding Controlled with NA -Offloading Yes -Treatment Response Procedure Tolerated Well [See Physician Procedure note for Specifics] Pain Scale: 0-10 Numeric [Pain] -Is Patient Pain Free? Yes Musculoskeletal: No Tenderness to Palpation of Joints or Extremities Neurological: - - Epicritic sensation grossly absent bilateral lower extremities Psych/Mental Status: Normal Affect, Appropriate Debridement Note Post-Debridement Measurements/Treatment WC - Nurse 2 - General Ulcer CM Notes Start: 04/04/19 08:23 Freq: Status: Active Protocol: Activity Type Activity Date Activity User E-Sign Co-Sign Detail Recorded Client Recorded Date Recorded By Document 04/04/19 08:49 [id number] 04/04/19 08:59 Document 04/11/19 08:33 [id number] 04/11/19 08:46 04/04/19 04/11/19 08:49 08:33 Wound Center Nurse 2 5. L heel -Time 08:55 -Correct Patient Yes Yes -Correct Side, Site, Position Yes Yes -Correct Procedure Yes Yes -Procedure Performed Yes Yes -Type of Procedure Debridement Debridement -Clinical Debridement Subcutaneous Subcutaneous -Post Debridement Size (cm) - Length 2.2 1 -Post Debridement Size (cm) - Width 2.8 1 -Post Debridement Size (cm) - Depth 0.2 0.2 -Total Square Cm 6.16 1 -Wound/Ulcer Outcome Not Healed Not Healed -Ulcer Cleansing Rinsed/ Rinsed/ Irrigated with Irrigated with Saline Saline -Foul Odor after Cleansing No No -Bioengineered Tissue No No -Bleeding Controlled with Pressure NA -Other walking boot -Offloading Yes Yes -Treatment Response Procedure Procedure Tolerated Well Tolerated Well Pain Scale: 0-10 Numeric Is Patient Pain Free? Yes Yes Wound debrided: Left heel Laterality: Left Type of Debridement: Excisional debridement Anesthesia Used: 5% Lidocaine Gel Depth: in the subcutaneous layer Percentage of wound debrided: 100 Instrument Used: #15 blade Tissue Removed: Devitalized subcutaneous tissue, adherent slough, fibrin, biofilm Severity: Fat Layer Exposed Amount of bleeding with debridement: Mild Bleeding Controlled with: Pressure Patient tolerated procedure well Assessment/Plan Assessment: Diabetic ulcer left heel. DM 2 with neuropathy. Other comorbidities Plan: Patient was carefully examined and evaluated again today for follow-up of left heel ulcer. Improvement noted again this week. Another subcutaneous debridement was performed as noted in the clinical panel. Once complete, the ulcer site was carefully cleansed and then dressed with Aquacel Ag to the base followed by dry sterile dressing. The patient is to have the dressing changed in this manner on a daily basis. The patient was instructed to keep the left heel offloaded at all times while seated or laying down. I stressed the importance of this. She is to continue with offloading CAM Walker to the left side. She is to continue use of her motorized wheelchair. She is to keep the heel floated completely with nothing under it except air. I continue to recommend a diet high in protein to help optimize ulcer healing potential. The patient was educated on all signs and symptoms of local and systemic infection, and she was instructed to go to the emergency room immediately should she notice any of these. All other questions were answered to the patient's satisfaction today. The patient will follow back up in clinic in 1 week to check on progress, or sooner if needed before then.
== END 2019-04-27 23:59 ==
LOC: WC 08:30
PROVIDERS: Family Provider Family Medicine; PCP Family Medicine; Visit Provider Podiatrist
DX: E11.621 Type 2 diabetes mellitus with foot ulcer (principal); E11.42 Type 2 diabetes mellitus with diabetic polyneuropathy; R60.0 Localized edema; Z91.19 Patient's noncompliance with other medical treatment and regimen; L97.422 Non-pressure chronic ulcer of left heel and midfoot with fat layer exposed
CPT/HCPCS: 11042

== ENCOUNTER 2019-04-13 00:56 | Emergency (ER) | payer MEDICARE, MEDICAID, SELFPAY ==
[2019-04-13 00:56] VITALS: BMI 42.0
[2019-04-13 00:58] VITALS: BP 136/92; PULSE 93; RESP 18; TEMP 36.8; O2SAT 96; BMI 42.4
[2019-04-13] MEDS: Ondansetron 4 MG/2 ML Vial IV (01:41)
[2019-04-13] MEDS: Ketorolac 30 MG/ML Syringe IV (01:41)
--- NOTE | 2019-04-13 01:50 | ED.DCSUM_ITS ---
- ER Visit Summary Date of Service: 04/13/19 Chief Complaint: Right flank pain History of Present Illness: The patient is a 38 F presenting with right flank pain. Patient is currently on antibiotics for recent kidney infection. She states she started having increasing right flank pain 2 hours ago. She tried naproxen at home. She denies fever. She has had nausea with no vomiting. She has a suprapubic catheter in place that is draining urine. Denies other complaints. Physical Examination: Vitals are stable. Patient is afebrile. Alert no acute distress. HEENT exam is unremarkable. Neck is supple. Lungs are clear and equal bilaterally. Heart is regular rate and rhythm. Abdomen is soft nontender nondistended. Suprapubic catheter Back mild right CVA tenderness Extremities are unremarkable. Skin is warm and dry. Remainder of exam is unremarkable. Emergency Department Course and Treatment: Patient has an ED care plan. She was given Toradol, Zofran IV. Urinalysis shows 0-5 white blood cells, 0-5 red blood cells, 5-10 epithelial cells. Urine culture was sent. On reevaluation, patient is resting comfortably. She is advised to follow-up with her primary care physician and her urologist. Advised return to ED if worsening complaints. Disposition: Discharge home Impression: Right flank pain This note was generated with [employer] dictation software. It may contain incorrect words, spelling, and punctuation that were not noted in review of the chart prior to signing ED Disposition - Plan for ED Patient: Instructions: FLANK PAIN, Uncertain Cause Referrals: Will Shukla MD [Primary Care Provider] -
[2019-04-13 02:25] LABS: Mucous, Urine 0 SEEN /hpf (<or=2+)
[2019-04-13 02:27] LABS: Color, Urine Yellow (Yellow); Glucose, Dipstick 1000 mg/dl (Normal); Ketone-Dipstick 5 mg/dl (Negative); Leukocyte Esterase-Dipstick 25 /ul (Negative); Nitrite-Dipstick Negative (Negative); Occult Blood-Urine 150 /ul (Negative); Protein-Dipstick 30 mg/dl (Negative); Specific Gravity, Urine 1.015 (1.002-1.030); Urine Bilirubin Dipstick Negative (Negative); Urine Clarity Sl. Cloudy (Clear); Urine Urobilinogen Normal (Normal)
[2019-04-13 02:33] LABS: Bacteria RARE /hpf (None Seen); Squamous Epithelial Cells - UA 5-10 SEEN /hpf (5-10)
[2019-04-13 02:34] LABS: Hyaline Cast 0-5 SEEN /lpf (0-5); Red Blood Cells-Urine 0-5 SEEN /hpf (0-5); White Blood Cells 0-5 SEEN /hpf (0-5)
--- NOTE | 2019-04-13 03:03 | ED.DEP ---
ED Disposition - Plan for ED Patient: Instructions: FLANK PAIN, Uncertain Cause Referrals: Will Shukla MD [Primary Care Provider] -
[2019-04-13 03:38] VITALS: BP 116/64; PULSE 75; RESP 18; O2SAT 96
--- NOTE | 2019-04-13 03:40 | ED.RN ---
THIS NURSE FLUSHED PATIENT'S SUPRAPUBIC CATHETER WITH 120 CC'S OF STERILE WATER PER DR. DELAROSA'S VERBAL ORDER. I GOT 120 CC'S OF RETURN. I DID NOT NOTE ANY BLOOD CLOTS. URINE FLOWED PRETTY FREELY AFTER AND A URINE SPECIMEN OF YELLOW CLEAR URINE WAS OBTAINED FROM THE CATHETER PORT. A NEW URINE OAKES BAG WAS APPLIED BY THE PATIENT AND A LEG BAG WAS SENT HOME. INSTRUCTIONS ON STERILE TECHNIQUE WERE DISCUSSED TO PREVENT FREQUENT UTI'S. THIS NURSE APPLIED A NEW TELFA DRESSING TO THE SP SITE.
== END 2019-04-13 03:44 | disposition home or self-care (01) ==
PROVIDERS: Emergency Provider Emergency Medicine; Family Provider Family Medicine; PCP Family Medicine
DX: R10.9 Unspecified abdominal pain (principal); R11.0 Nausea; N15.9 Renal tubulo-interstitial disease, unspecified; E11.9 Type 2 diabetes mellitus without complications; Q05.9 Spina bifida, unspecified; N31.9 Neuromuscular dysfunction of bladder, unspecified
CPT/HCPCS: 81001; 87086; 87088; 96361; 96374; 96375; 99284; J7040; A4216; J2405

== ENCOUNTER 2019-05-24 14:27 | Emergency (ER) | payer MEDICARE, MEDICAID, SELFPAY ==
[2019-05-24 14:28] VITALS: BP 138/99; PULSE 78; RESP 16; TEMP 36.8; O2SAT 99; BMI 42.5
--- NOTE | 2019-05-24 15:13 | EKG12_ITS ---
Test Reason : FLANK PAIN Blood Pressure : / mmHG Vent. Rate : 070 BPM Atrial Rate : 070 BPM P-R Int : 144 ms QRS Dur : 078 ms QT Int : 426 ms P-R-T Axes : 021 044 026 degrees QTc Int : 460 ms Normal sinus rhythm Normal ECG Confirmed by YARIEL FITZGERALD, ANUM ([id number]), content editor WILBUR FARRAR ([id number]) on 05/28/2019 9:50:32 AM Referred By: JERED Confirmed By:ANUM SALDIVAR MD
[2019-05-24] MEDS: 0.9% Normal Saline 1,000 ML 999 ML IV ×2 (15:22→16:14)
[2019-05-24] MEDS: Ondansetron 4 MG/2 ML Vial IV (15:23)
[2019-05-24] MEDS: Ketorolac 15 MG/ML Vial IV (15:23)
--- NOTE | 2019-05-24 15:23 | RAD_ITS ---
STUDY: X-RAY CHEST REASON FOR EXAM: Female, 38 years old. Bilateral flank pain with nausea, vomiting and weakness. TECHNIQUE: Single frontal view of the chest. COMPARISON: January 10, 2019 FINDINGS: The lungs are clear and expanded. There is no demonstrated pleural abnormality. Normal size heart. Normal mediastinum and cristiano. Normal visualized pulmonary arteries. Normal visualized aortic arch and descending thoracic aorta. Normal visualized thoracic spine. Normal visualized ribs, clavicles, and shoulders. There is no demonstrated abnormality of the visualized soft tissue structures of the upper abdomen. RAD/Chest 1 View (Portable) IMPRESSION: No interval change. No acute finding. Electronically Signed: Shawn Vega MD at 15:44 EST , Service support ,
--- NOTE | 2019-05-24 15:25 | ED.DCSUM_ITS ---
History of Present Illness Chief Complaint: Flank Pain Informant: Patient Onset: Days - 5-7 Context: Gradual Onset Timing: Continuous Narrative: Patient is a 38-year-old female with history of spina bifida with subsequent neurogenic bladder and suprapubic Morales catheter placement presenting with concern for kidney infection. Patient states that she had her suprapubic Morales catheter was switched out by Dr. Box 1 week ago. Patient states it was placed improperly and actually came out her urethra. Since then she is developed symptoms consistent with urinary tract infection. She has associated flank pain that is worse on the right, bladder pain that she describes as tearing and sensation and abnormal color of her urine as well as increased sediment. She also has associated nausea and vomiting. She states she had multiple episodes of vomiting today including just prior to arrival. Today she also started to feel pressure in her chest and short of breath. She denies any associated cough. She notes she sometimes gets the symptoms when she is getting ill. She denies any history of DVT or PE. She denies any swelling of her lower extremities. Patient is in a motorized wheelchair at baseline. Patient also follows with urologist up at [facility], Dr. Hancock and has an appointment in August for her routine testing and monitoring. Patient states she is very worried that she will become septic again which is why she came to the emergency room for further evaluation. She last took Naprosyn for her symptoms at 6 AM. Past Medical History - Allergies and Home Meds Allergies/Adverse Reactions: Allergies mushroom Allergy (Verified 05/24/19 14:27) Anaphylaxis peanut Allergy (Verified 05/24/19 14:27) Anaphylaxis Gadolinium-MRI Contrast Medium Adverse Reaction (Verified 05/24/19 14:27) Vomiting Latex, Natural Rubber Adverse Reaction (Verified 05/24/19 14:27) Rash Primary Care Physician: Will Shukla MD [Primary Care Provider] - Prior records reviewed: Yes Past Medical History: - - Spina bifida, diabetes mellitus, history of osteomyelitis, neurogenic bladder, anxiety Surgical History: cholecystectomy, - - D&C, lumbar back surgery x2, foot surgery x2, abdominal stoma, ventral hernia repair. Lives: Spouse/ Significant Other Smoking Status: Never smoker - Family History Paternal Family History: Family History (Last Reviewed 12/13/18 @ 21:16 by Gen Butt MD) Mother CVA (cerebral vascular accident) Thyroid disorder Diabetes Hypertension Family History: Reports: - - Denies known paternal medical history including cardiac history. Sibling Family History: Family History (Last Reviewed 12/13/18 @ 21:16 by Gen Butt MD) Mother CVA (cerebral vascular accident) Thyroid disorder Diabetes Hypertension Family History: Reports: - - Denies known sibling medical history. Maternal Family History: Family History (Last Reviewed 12/13/18 @ 21:16 by Gen Butt MD) Mother CVA (cerebral vascular accident) Thyroid disorder Diabetes Hypertension Family History: Reports: Cancer, Diabetes, Hypertension, Stroke Review of Systems General: Reports: Chills, Malaise. Denies: Fever, Sweats Eyes: Denies: Visual changes - bilaterally, Diplopia ENT: Denies: Rhinorrhea, Sore throat Cardiovascular: Reports: Chest pain. Denies: Palpitations Respiratory: Reports: Dyspnea. Denies: Cough Gastrointestinal: Reports: Abdominal pain, Nausea, Vomiting. Denies: Diarrhea, Melena, Hematochezia Genitourinary: Denies: Dysuria, Hematuria, Frequency Musculoskeletal: Denies: Back pain, Extremity Pain Skin: Denies: Rash, Wounds Neurological: Denies: Headache, Weakness, Numbness Psych: Reports: Anxiety Physical Exam Vital Signs/Narrative: Vital Signs Temp Pulse Resp BP Pulse Ox 05/24/19 14:28 98.2 F 78 16 138/99 H 99 Inital Vital Signs reviewed: Yes General: Well nourished, Well developed, No Acute Distress Head: Normocephalic, Atraumatic Eyes: Perrl, EOMI ENT: Moist mucous membranes, No rhinorrhea Neck: Supple, Nontender Cardiovascular: Regular rate, Regular rhythm, No murmurs Respiratory: No distress, CTA bilaterally, Chest nontender Abdomen: Soft, Nondistended, Normal bowel sounds, Tender - suprapubic . Negative for: Guarding, Rebound tenderness : - - Suprapubic Morales catheter in place Back: Normal Inspection, CVA tenderness - Right great than left , - - Diffuse bilateral lumbar tenderness to palpation. Negative for: Spinal tenderness Extremities: Nontender, No edema Skin: Normal color. Negative for: Pallor Neurological: Alert, Oriented x3, Cranial nerves II-XII grossly intact, Normal Sensation, - - Decreased strength of lower extremities consistent with patient's history of spina bifida Psychological: Normal affect, Normal Mood Diagnostic/Tx/Re-eval Clinical Impression(s) from Imaging Studies Chest X-Ray 05/24/19 15:23 IMPRESSION: No interval change. No acute finding. Electronically Signed: Shawn Vega MD at 15:44 EST , Service support , Laboratory Data 05/24/19 05/24/19 05/24/19 14:55 14:55 15:45 WBC 9.3 RBC 4.50 Hgb 13.1 Hct 40.2 MCV 89.3 MCH 29.1 MCHC 32.6 RDW Std Deviation 43.7 RDW Coeff of Claude 13.4 Plt Count 209 MPV 11.3 Immature Gran % (Auto) 0.800 Neut % (Auto) 61.5 Lymph % (Auto) 23.0 [place] % (Auto) 7.5 Eos % (Auto) 6.2 H Baso % (Auto) 1.0 Absolute Neuts (auto) 5.7 Absolute Lymphs (auto) 2.13 Nucleated RBC % 0 Sodium 140 Potassium 3.9 Chloride 107 Carbon Dioxide 24.0 Anion Gap 9 BUN 10 Creatinine 0.98 Estim Creat Clear Calc 62.16 Est GFR (MDRD) Af Amer 82 Est GFR (MDRD) Non-Af 68 BUN/Creatinine Ratio 10.3 Glucose 290 H Calcium 8.7 Total Bilirubin 0.20 AST 36 ALT 46 Alkaline Phosphatase 90 Troponin I < 0.015 Total Protein 7.8 Albumin 3.6 Globulin 4.2 Albumin/Globulin Ratio 0.9 Lipase 113 Urine Color Yellow Urine Clarity Cloudy Urine pH 6.0 Ur Specific [place] 1.015 Urine Protein 30 H Urine Glucose (UA) 1000 H Urine Ketones Negative Urine Occult Blood 50 H Urine Nitrite Positive H Urine Bilirubin Negative Urine Urobilinogen Normal Ur Leukocyte Esterase 500 H Urine RBC 10-25 SEEN Urine WBC >100 SEEN Ur Squamous Epith Cells 0-5 SEEN Urine Bacteria 4+ Urine Mucus 0 SEEN - Rhythm Strip Rhythm Strip: Sinus Rhythm Rate: 70 Ectopy: None - EKG Initial EKG Interpretation: Sinus Rhythm, - - Normal sinus rhythm at a rate of 70 Normal intervals Normal axis Normal ST segments Nonspecific T wave inversion in lead III as well as U wave in V3 and V5 - Medical Decision Making Evaluate for flank pain, nausea and vomiting. Her urinalysis is consistent with infection. She otherwise normal labs. Patient's vital signs are normal. She did states she had chest pain and shortness of breath today. She says it might be associate with her anxiety. I did check an EKG, chest x-ray and troponin which are all normal. Patient will be started on Bactrim for her UTI. She is given first dose in the emergency room. Culture is sent. Prior urine cultures have been sensitive to Bactrim which is why it was picked today. Patient is counseled that she will not receive opioids for her back pain due to her care plan. She is given Toradol in the ER for this. She be discharged home with a course of Naprosyn as well as Zofran in addition to her antibiotics. Patient is counseled on signs and symptoms requiring return to the emergency room. Patient verbalizes agreement and understand this plan. Patient discharged home in stable and improved condition. ED Disposition - Plan for ED Patient: Disposition: Home or Assisted Living Diagnosis: UTI (urinary tract infection) Instructions: Bladder Infection, Female (Adult) Prescriptions: Sulfamethoxazole/Trimethoprim [Bactrim Ds Tablet] 1 ea PO BID #20 tab Prescription Printed Naproxen [Naprosyn] 500 mg PO BID #14 tab Prescription Printed Ondansetron [Zofran Odt] 4 mg PO Q8H PRN PRN #10 tab PRN Reason: Nausea Prescription Printed Referrals: Will Shukla MD [Primary Care Provider] - Additional Instructions: Please return to the emergency room with any worsening symptoms. Please follow- up with your primary care doctor early next week. Does look like you have a bladder infection. This is likely the cause of your symptoms. At this time we do not have findings concerning for sepsis.
[2019-05-24 15:55] LABS: Absolute Lymphocyte Count 2.13 X10^3/uL (0.83-4.51); Absolute Neutrophil Count 5.7 X10^3/uL (2.0-7.7); Basophil# 0.09 X10^3/uL; Eosinophil# 0.57 X10^3/uL; Eosinophils% 6.2 % (0-5); Hematocrit 40.2 % (37-47); Hemoglobin 13.1 g/dL (12.0-15.0); Lymphocyte # 2.13 X10^3/ul (4.0); Mean Corp Hgb Conc 32.6 g/dL (32-36); Mean Corpuscular Hgb 29.1 pg (27.0-32.0); Mean Corpuscular Volume 89.3 fL (81-99); Mean Platelet Vol. 11.3 fl (6.2-12.0); Monocyte# 0.69 X10^3/uL; Monocyte% 7.5 % (0-10); NRBC Flagged by Analyzer 0 % (0-5); Neutrophil # 5.71 X10^3/uL (2.7-7.7); Neutrophil % 61.5 % (47-70); Platelet Count 209 K/mm3 (150-450); RBC Distribution Width CV 13.4 % (11.6-14.6); RBC Distribution Width SD 43.7 fl (35.1-43.9); White Blood Count 9.3 K/mm3 (4.4-11.0)
[2019-05-24 15:56] LABS: Mucous, Urine 0 SEEN /hpf (<or=2+)
[2019-05-24 16:01] LABS: Color, Urine Yellow (Yellow); Glucose, Dipstick 1000 mg/dl (Normal); Ketone-Dipstick Negative (Negative); Leukocyte Esterase-Dipstick 500 /ul (Negative); Nitrite-Dipstick Positive (Negative); Occult Blood-Urine 50 /ul (Negative); Protein-Dipstick 30 mg/dl (Negative); Specific Gravity, Urine 1.015 (1.002-1.030); Urine Bilirubin Dipstick Negative (Negative); Urine Clarity Cloudy (Clear); Urine Urobilinogen Normal (Normal)
[2019-05-24 16:30] VITALS: BP 127/87; PULSE 74; RESP 20; TEMP 36.5; O2SAT 100
[2019-05-24 16:45] LABS: White Blood Cells >100 SEEN /hpf (0-5)
[2019-05-24 16:46] LABS: Bacteria 4+ /hpf (None Seen); Red Blood Cells-Urine 10-25 SEEN /hpf (0-5); Squamous Epithelial Cells - UA 0-5 SEEN /hpf (5-10)
[2019-05-24 16:54] LABS: ALB/GLOB Ratio 0.9 RATIO (0.9-2.4); AST(SGOT) 36 U/L (15-37); Alanine Aminotransfer ALT/SGPT 46 U/L (13-56); Albumin, Serum 3.6 g/dL (3.2-5.0); Alkaline Phosphatase 90 U/L (45-117); Anion Gap 9 (5-15); BUN 10 mg/dL (7-18); BUN/Creat Ratio 10.3 RATIO (10-20); Calcium,Total 8.7 mg/dL (8.5-10.1); Chloride 107 mmol/L (98-107); Creatinine, Serum 0.98 mg/dL (0.55-1.02); EST Glomerular Filtration Rate 68 mL/min (>60); Est Glom Filt Rate - Afr Amer 82 mL/min (>60); Estimated Creatinine Clearance 62.16 ml/min; Globulin 4.2 g/dL (2.2-4.2); Glucose 290 mg/dL (74-106); Lipase 113 U/L (73-393); Potassium 3.9 mmol/L (3.5-5.1); Protein, Total 7.8 g/dL (6.4-8.2); Sodium Level 140 mmol/L (136-145)
--- NOTE | 2019-05-24 17:45 | CM.ED ---
SOCIAL WORK INFORMANT: NURSING AND DR. LAWTON REASON FOR REFERRAL: EDCP UPDATED BY DR. LAWTON, SHE INFORMED PATIENT OF ED CARE PLAN. MET WITH PATIENT IN ROOM. INTRODUCED ROLE AND REASON FOR REFERRAL. INFORMED PATIENT SHE HAS BEEN APPROVED FOR AN ED CARE PLAN. EXPLAINED ED CARE PLAN AND ANSWERED ALL QUESTIONS. INFORMED PATIENT IT IS FOR CONTINUITY OF CARE AND SOCIAL WORK WILL HELP PATIENT WITH RESOURCES. PATIENT STATES, I HAVE HAD SO MANY VISITS DUE TO [place] CATH. I WAS ALLERGIC TO IT. PATIENT STATES, I DON'T WANT PAIN MEDICATION. I WATCHED MY MOTHER EAT THEM LIKE CANDY. PATIENT STATES HAS FOLLOW UP WITH PCP AND WILL DISCUSS PAIN MANAGEMENT. PATIENT STATES I ONLY HAVE PAIN WHEN I HAVE INFECTIONS. ACTIVE LISTENING AND EDUCATION PROVIDED. PLAN: HOME CHAU SALDANA, SALES AND MARKETING DIRECTOR
[2019-05-24] MEDS: Smz/Tmp Ds Tablet 1 TABLET PO (17:50)
[2019-05-24 17:51] VITALS: BP 138/81; PULSE 71; RESP 18; TEMP 36.5; O2SAT 100
--- NOTE | 2019-07-05 21:40 | CM.ED ---
Social Work Mailed ED Care Plan along with resources to patient. Faxed ED Care Plan to patient PCP. Tracking Number: [id number] Garrison RITCHIE, CLARIBEL
== END 2019-05-24 18:52 | disposition home or self-care (01) ==
PROVIDERS: Emergency Provider Emergency Medicine; Family Provider Family Medicine; PCP Family Medicine
DX: N39.0 Urinary tract infection, site not specified (principal); Q05.9 Spina bifida, unspecified; E11.9 Type 2 diabetes mellitus without complications; F41.9 Anxiety disorder, unspecified; Z93.50 Unspecified cystostomy status; Z99.3 Dependence on wheelchair; Z79.84 Long term (current) use of oral hypoglycemic drugs; Z79.899 Other long term (current) drug therapy
CPT/HCPCS: 71045; 80053; 81001; 83690; 84484; 85025; 87077; 87086; 87088; 87186; 93005; 96361; 96374; 96375; 99285; J7030; A4216; J2405

== ENCOUNTER 2019-07-08 19:14 | Emergency (ER) | payer MEDICARE, MEDICAID, SELFPAY ==
[2019-07-08] VITALS (7 sets, daily range): BP systolic 115–149; BP diastolic 77–88; PULSE 95–107; RESP 16–20; TEMP 36.8–37.2; O2SAT 94–98; BMI 42.4
--- NOTE | 2019-07-08 19:45 | ED.RN ---
PT STATES I'M UPSET AND FEEL LIKE IT WOULD BE BETTER TO JUST GIVE UP BECAUSE OF ALL THESE HEALTH COMPLICATIONS. PT DENIES SUICIDE PLAN.
--- NOTE | 2019-07-08 20:16 | EKG12_ITS ---
Test Reason : CP Blood Pressure : / mmHG Vent. Rate : 103 BPM Atrial Rate : 103 BPM P-R Int : 126 ms QRS Dur : 074 ms QT Int : 342 ms P-R-T Axes : 030 033 018 degrees QTc Int : 448 ms Sinus tachycardia Otherwise normal ECG Confirmed by YARIEL FITZGERALD, ANUM ([id number]), supervising editor trailer KRISTEN DOMINGUEZ ([id number]) on 07/10/2019 9:53:45 AM Referred By: SANDRA Confirmed By:ANUM SALDIVAR MD
--- NOTE | 2019-07-08 20:16 | RAD_ITS ---
HISTORY: CHEST PAIN SINCE LAST MONDAY, COUGH, FEVER, NAUSEA AND VOMITING, MIGRAINE HEADACHE. EXAM: XR Chest 1 View: COMPARISON: May 24, 2019 FINDINGS: # of images incl. paperwork: 1 Lungs are clear. Heart is not enlarged. No acute osseous pathology perceived. Pulmonary vascularity is distinct. No effusions. RAD/Chest 1 View (Portable) IMPRESSION: Normal. at 2046 Reported and signed by: Yovany George MD Electronically Signed: Yovany George MD at 20:45 EST Tel , Service support ,
--- NOTE | 2019-07-08 20:21 | ED.VIS.GEN ---
History of Present Illness Chief Complaint: General Illness Informant: Patient Onset: Days Narrative: Patient reports developing chest pain last Monday. She describes as a constant pressure. She has now developed a migraine as well as cough. She does report nausea and vomiting. She has pain in both ears. She describes having a fever at home but did not measure it. - Past Medical History (1) Chronic back pain Status: Chronic (2) Depression Status: Chronic (3) Diabetes mellitus, type II Status: Chronic Comment: not well controlled (4) History of migraine Status: Chronic (5) Neurogenic bladder Status: Chronic (6) Neurogenic bowel Status: Chronic (7) Spina bifida aperta of lumbar spine Status: Chronic Comment: s/p surgery x 2 weakness and numbness in legs neurogenic bladder and frequent UTIs Past Medical History - Allergies and Home Meds Allergies/Adverse Reactions: Allergies mushroom Allergy (Verified 05/24/19 14:27) Anaphylaxis peanut Allergy (Verified 05/24/19 14:27) Anaphylaxis Gadolinium-MRI Contrast Medium Adverse Reaction (Verified 05/24/19 14:27) Vomiting Latex, Natural Rubber Adverse Reaction (Verified 05/24/19 14:27) Rash Primary Care Physician: Will Shukla MD [Primary Care Provider] - Prior records reviewed: Yes Surgical History: cholecystectomy, - - D&C, lumbar back surgery x2, foot surgery x2, abdominal stoma, ventral hernia repair. Lives: Spouse/ Significant Other Smoking Status: Never smoker - Family History Paternal Family History: Family History (Last Reviewed 12/13/18 @ 21:16 by Gen Butt MD) Mother CVA (cerebral vascular accident) Thyroid disorder Diabetes Hypertension Family History: Reports: - - Denies known paternal medical history including cardiac history. Sibling Family History: Family History (Last Reviewed 12/13/18 @ 21:16 by Gen Butt MD) Mother CVA (cerebral vascular accident) Thyroid disorder Diabetes Hypertension Family History: Reports: - - Denies known sibling medical history. Maternal Family History: Family History (Last Reviewed 12/13/18 @ 21:16 by Gen Butt MD) Mother CVA (cerebral vascular accident) Thyroid disorder Diabetes Hypertension Family History: Reports: Cancer, Diabetes, Hypertension, Stroke Review of Systems General: Reports: Chills Eyes: Denies: Visual changes - bilaterally ENT: Reports: Bilateral ear pain Cardiovascular: Reports: Chest pain Respiratory: Reports: Dyspnea, Cough Gastrointestinal: Reports: Nausea, Vomiting. Denies: Abdominal pain Musculoskeletal: Reports: Back pain. Denies: Extremity Pain Skin: Denies: Rash Neurological: Reports: Headache Endocrine: Denies: Polyuria, Polydipsia Hematologic: Denies: Easy bruising, Easy bleeding Allergy: Denies: Uticaria Physical Exam Vital Signs/Narrative: Vital Signs Temp Pulse Resp BP Pulse Ox 07/08/19 19:41 98.7 F 07/08/19 19:15 98.3 F 107 H 20 H 149/85 H 98 Inital Vital Signs reviewed: Yes Head: Normocephalic Eyes: Perrl, EOMI ENT: Moist mucous membranes Cardiovascular: Regular rate, Regular rhythm Respiratory: No distress, CTA bilaterally Abdomen: Soft, Nontender Extremities: Nontender Skin: Normal color, No rash Neurological: Alert, Oriented x3 Psychological: Normal affect Diagnostic/Tx/Re-eval Impressions Chest X-Ray 07/08/19 20:16 IMPRESSION: Normal. at 2046 Reported and signed by: Yovany George MD Electronically Signed: Yovany George MD at 20:45 EST Tel , Service support , Chest CTA 07/08/19 22:06 IMPRESSION: No pulmonary embolism, aortic aneurysm, or aortic dissection. Very small right posterior medial Bochdalek hernia is slightly larger than the most recent study of November 23, 2018. T8 butterfly vertebral body is unchanged and a normal developmental variant. Within the right lobe of the thyroid gland is 2.7 cm hypodense lesion with rim enhancing margins. It was present on the previous study and is not significantly changed. Absence of significant change since October 23, 2018 is highly suggestive of benignity. Further for follow-up with ultrasound may be warranted to assess for absence of change. Individualized dose optimization techniques were used for this CT. at 0003 Reported and signed by: Yovany George MD Electronically Signed: Yovany George MD at 0:02 EST Tel , Service support , 07/08/19 20:16 Chest 1 View (Portable) [RAD] Stat 07/08/19 22:06 CTA Chest W/WO Contrast [CT] Stat 07/08/19 20:22 Mucosa - Nasopharyngeal Influenza Types A,B Direct FA (KURT) - Final Laboratory Results 07/08/19 07/08/19 07/08/19 20:40 20:40 20:40 WBC 15.1 H RBC 4.86 Hgb 14.0 Hct 42.0 MCV 86.4 MCH 28.8 MCHC 33.3 RDW Std Deviation 40.3 RDW Coeff of Claude 13.0 Plt Count 207 MPV 10.6 Immature Gran % (Auto) 0.800 Neut % (Auto) 80.5 H Lymph % (Auto) 8.3 L [place] % (Auto) 9.1 Eos % (Auto) 0.8 Baso % (Auto) 0.5 Absolute Neuts (auto) 12.2 H Absolute Lymphs (auto) 1.26 Nucleated RBC % 0 D-Dimer Quant (PE/DVT) 0.89 H* Sodium 135 L Potassium 4.2 Chloride 106 Carbon Dioxide 25.0 Anion Gap 4 L BUN 10 Creatinine 1.11 H Estim Creat Clear Calc 54.88 Est GFR (MDRD) Af Amer 71 Est GFR (MDRD) Non-Af 59 L BUN/Creatinine Ratio 9.0 L Glucose 244 H Calcium 9.4 Troponin I < 0.015 - EKG Initial EKG Interpretation: Sinus Rhythm - Sinus tach at 103 with no acute ischemia. - Medical Decision Making Patient is given morphine and Phenergan along with IV fluids. Test results discussed with patient and at bedside. Patient does seem to have viral upper respiratory symptoms. Her influenza swab was negative. Patient does, however, tend to have chronic urinary infections with suprapubic catheter. Her urine will be sent for culture and she will be treated with 3 days of Cipro. Cipro was chosen after reviewing the last several urine cultures that she has had. She will follow-up with her urologist in [place]. ED Disposition - Plan for ED Patient: Disposition: Home or Assisted Living Diagnosis: Viral syndrome Instructions: VIRAL SYNDROME (Adult) Prescriptions: Ciprofloxacin [Cipro] 500 mg PO BID #6 tab Transmission Status: Pending to [facility] Referrals: Will Shukla MD [Primary Care Provider] - 1 Week
[2019-07-08] MEDS: 0.9% Normal Saline 1,000 ML 150 ML IV (20:37)
[2019-07-08] MEDS: Morphine 4 MG/ML Syringe IV (20:38)
[2019-07-08] MEDS: proMETHazine 25 MG/ML Syringe 12.5 MG IV (20:38)
[2019-07-08 20:55] LABS: Absolute Lymphocyte Count 1.26 X10^3/uL (0.83-4.51); Absolute Neutrophil Count 12.2 X10^3/uL (2.0-7.7); Basophil# 0.08 X10^3/uL; Basophil% 0.5 % (0-1); Eosinophil# 0.12 X10^3/uL; Eosinophils% 0.8 % (0-5); Lymphocyte # 1.26 X10^3/ul (4.0); Lymphocyte % 8.3 % (19-41); Mean Corp Hgb Conc 33.3 g/dL (32-36); Mean Corpuscular Hgb 28.8 pg (27.0-32.0); Mean Corpuscular Volume 86.4 fL (81-99); Mean Platelet Vol. 10.6 fl (6.2-12.0); Monocyte# 1.37 X10^3/uL; Monocyte% 9.1 % (0-10); NRBC Flagged by Analyzer 0 % (0-5); Neutrophil # 12.18 X10^3/uL (2.7-7.7); Neutrophil % 80.5 % (47-70); Platelet Count 207 K/mm3 (150-450); RBC Distribution Width SD 40.3 fl (35.1-43.9); Red Blood Count 4.86 M/mm3 (4.2-5.4); White Blood Count 15.1 K/mm3 (4.4-11.0)
[2019-07-08 21:21] LABS: Anion Gap 4 (5-15); BUN 10 mg/dL (7-18); Calcium,Total 9.4 mg/dL (8.5-10.1); Chloride 106 mmol/L (98-107); Creatinine, Serum 1.11 mg/dL (0.55-1.02); EST Glomerular Filtration Rate 59 mL/min (>60); Est Glom Filt Rate - Afr Amer 71 mL/min (>60); Estimated Creatinine Clearance 54.88 ml/min; Glucose 244 mg/dL (74-106); Potassium 4.2 mmol/L (3.5-5.1); Sodium Level 135 mmol/L (136-145)
[2019-07-08 21:31] LABS: D-Dimer Quantitative (DVT/PE) 0.89 FEU/ug/m (0.27-0.49)
--- NOTE | 2019-07-08 22:06 | CT_ITS ---
HISTORY: COUGH, FEVER, CHEST DISCOMFORT, MIGRAINE, ELEVATED D-DIMER TECHNIQUE: Helically acquired images were obtained of the chest following the intravenous administration of 100 ML of Isovue 300 Iodinated contrast. as per pulmonary angiogram protocol with 2D MIP reconstructions. A radiation dose optimization technique was used for this scan. COMPARISON: CTA of the chest most recently is from October 23, 2018. Chest x-ray is from about [address] scan and at the level of the aortic arch, and extended inferiorly of the abdomen and pelvis is November 23, 2018. FINDINGS: # of images incl. paperwork: 1186 Small right-sided posterior medial Bochdalek hernia is slightly larger than previously Lungs are clear but for several benign right lower lobe calcified granulomas. No effusions. Within the thoracic spinebony alignment is normal. Vertebral body height is normal except at the T8 vertebral body. The T8 vertebral body is somewhat of a butterfly vertebral body. The right side is slightly narrower than the left side. The deformity in the vertebral body is slightly asymmetric. This is a developmental variant, and was well demonstrated on the previous CTA chest. Facets are well aligned. No rib lesions are perceived. Heart is not enlarged. Thoracic aorta is normal. No aneurysms, stenoses, dissections, nor occlusions. No axillary or mediastinal adenopathy. No pulmonary emboli. Visualized portions of the upper abdomen are without identified acute pathology. CT/CTA Chest W/WO Contrast IMPRESSION: No pulmonary embolism, aortic aneurysm, or aortic dissection. Very small right posterior medial Bochdalek hernia is slightly larger than the most recent study of November 23, 2018. T8 butterfly vertebral body is unchanged and a normal developmental variant. Within the right lobe of the thyroid gland is 2.7 cm hypodense lesion with rim enhancing margins. It was present on the previous study and is not significantly changed. Absence of significant change since October 23, 2018 is highly suggestive of benignity. Further for follow-up with ultrasound may be warranted to assess for absence of change. Individualized dose optimization techniques were used for this CT. at 0003 Reported and signed by: Yovany George MD Electronically Signed: Yovany George MD at 0:02 EST Tel , Service support ,
--- NOTE | 2019-07-09 00:18 | ED.DEP ---
ED Disposition - Plan for ED Patient: Disposition: Home or Assisted Living Diagnosis: Viral syndrome Instructions: VIRAL SYNDROME (Adult) Prescriptions: Ciprofloxacin [Cipro] 500 mg PO BID #6 tab Transmission Status: Sent to [facility] #30 proMETHazine tablet [Phenergan] 25 mg PO Q6H PRN PRN #10 tab PRN Reason: Nausea Transmission Status: Pending to [facility] #30 Referrals: Will Shukla MD [Primary Care Provider] - 1 Week
[2019-07-09] MEDS: Ciprofloxacin 500 MG Tablet PO (00:28)
[2019-07-09 00:34] VITALS: BP 116/86; PULSE 96; RESP 17; O2SAT 95
== END 2019-07-09 00:35 | disposition home or self-care (01) ==
PROVIDERS: Emergency Provider Emergency Medicine; PCP Family Medicine
DX: B34.9 Viral infection, unspecified (principal); M54.9 Dorsalgia, unspecified; R07.89 Other chest pain; G89.29 Other chronic pain; F32.9 Major depressive disorder, single episode, unspecified; E11.9 Type 2 diabetes mellitus without complications; K59.2 Neurogenic bowel, not elsewhere classified; G43.909 Migraine, unspecified, not intractable, without status migrainosus; Q05.7 Lumbar spina bifida without hydrocephalus; Z82.49 Family history of ischemic heart disease and other diseases of the circulatory system; Z90.49 Acquired absence of other specified parts of digestive tract; Z91.040 Latex allergy status; Z87.440 Personal history of urinary (tract) infections
CPT/HCPCS: 71045; 71275; 80048; 84484; 85025; 85379; 87077; 87086; 87088; 87186; 87804; 93005; 96361; 96374; 96375; 99285; J7030; Q9967; A4216

== ENCOUNTER 2019-07-21 13:45 | Emergency (ER) | payer MEDICARE, MEDICAID, SELFPAY ==
[2019-07-08 19:15] VITALS: BMI 42.4
[2019-07-21 13:47] VITALS: BP 143/119; PULSE 84; RESP 18; TEMP 37.2; O2SAT 98; BMI 42.4
--- NOTE | 2019-07-21 14:13 | ED.VISSUMM ---
- ER Visit Summary Date of Service: 07/21/19 Chief Complaint: [Laceration to her left long finger.] History of Present Illness: The patient is a 38 F [presents to the emergency department with complaint of a laceration to the left long finger that occurred while she was cutting some cheese. Patient is right-hand dominant. He does have history of diabetes as well as hypertension as well as spina bifida and history of neurogenic bladder. Patient is up-to-date on tetanus.] Physical Examination: [Left long finger-patient has a 1 cm V-shaped laceration over the palmar aspect of the distal phalanx that is well approximated and there is no active bleeding. She is neurovascular intact distally with normal range of motion at the DIP and PIP joints.] Test Results: [None indicated] Emergency Department Course and Treatment: [Wound cleansed with Shur-Clens. Using Dermabond I was able to glue the wound without difficulty. Patient tolerated procedure well. She did receive Tylenol 650 mg p.o.] Treatment Plan: [Aloe up with primary care physician in 3 to 5 days for wound check. Patient advised to return if increasing pain, redness, swelling, purulent drainage, or condition should worsen anyway.] Disposition: [Discharged home in stable condition] Impression: [Left long finger laceration 1 cm-Dermabond repair] This note was generated with [employer] dictation software. It may contain incorrect words, spelling, and punctuation that were not noted in review of the chart prior to signing ED Disposition - Plan for ED Patient: Referrals: Will Shukla MD [Primary Care Provider] -
--- NOTE | 2019-07-21 14:15 | ED.DEP ---
ED Disposition - Plan for ED Patient: Instructions: LACERATION, Extremity (Skin Glue) Referrals: Will Shukla MD [Primary Care Provider] - 3-5 Days
[2019-07-21] MEDS: Acetaminophen 325 MG Tablet 650 MG PO (14:45)
[2019-07-21 14:48] VITALS: BP 146/99; PULSE 91; RESP 18; O2SAT 99
[2019-07-21 14:49] VITALS: BP 146/99; PULSE 94; RESP 18
== END 2019-07-21 14:52 | disposition home or self-care (01) ==
LOC: ED 14:28
PROVIDERS: Emergency Provider Emergency Medicine; PCP Family Medicine
DX: S61.213A Laceration without foreign body of left middle finger without damage to nail, initial encounter (principal); W26.0XXA Contact with knife, initial encounter; Y93.9 Activity, unspecified; Y92.89 Other specified places as the place of occurrence of the external cause; Y99.9 Unspecified external cause status; E11.9 Type 2 diabetes mellitus without complications; I10 Essential (primary) hypertension; N31.9 Neuromuscular dysfunction of bladder, unspecified; Q05.9 Spina bifida, unspecified
CPT/HCPCS: 12001; 99282

== ENCOUNTER 2019-08-13 22:39 | Emergency (ER) | payer MEDICARE, MEDICAID, SELFPAY ==
[2019-08-13 22:39] VITALS: PULSE 70; RESP 22; TEMP 37.2; O2SAT 99; BMI 43.9
[2019-08-13 22:45] VITALS: BP 138/86; PULSE 82; RESP 18; O2SAT 99
--- NOTE | 2019-08-13 22:47 | ED.RN ---
CALLED FOR EKG, PULLED OLD EKGS FOR
--- NOTE | 2019-08-13 22:53 | EKG12_ITS ---
Test Reason : CP Blood Pressure : / mmHG Vent. Rate : 083 BPM Atrial Rate : 083 BPM P-R Int : 144 ms QRS Dur : 078 ms QT Int : 376 ms P-R-T Axes : 019 045 031 degrees QTc Int : 441 ms Normal sinus rhythm Normal ECG Confirmed by ITZ FITZGERALD, ZACHARY ([id number]), industrial editor KRISTEN DOMINGUEZ ([id number]) on 08/19/2019 11:18:23 AM Referred By: ACRRI Confirmed By:MADELEINE MOBLEY MD
--- NOTE | 2019-08-13 22:54 | ED.DCSUM_ITS ---
History of Present Illness Chief Complaint: Chest Pain Informant: Patient Narrative: Patient states she developed chest pain diffuse across her chest achiness that started 6 hours ago at rest at home. No home treatment. She stated that over the last couple hours she should felt like her blood sugar was increasing. She is a type II diabetic. She does not take insulin. She took her blood sugar at home it was 400. Came in for further evaluation of the above. Patient has had chest pain in the past. She denies any previous cardiac disease. She denies a history of pulmonary embolism or dissection. She had a negative CAT scan of her chest with contrast to rule out PE or dissection approximately a month ago as she came in for chest pain at that time. She had a negative stress test in October of last year for chest pain as well. She does have history of spina bifida and neurogenic bladder. She has a chronic suprapubic catheter that was just changed last week. Denies any pulmonary embolism risk factors. 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 Will follow, no need yet for cysto retros etc. But this may change in future 13 Sept Re-admitted consult dictated (12) Lower extremity edema Status: Chronic (13) Morbid obesity with BMI of 40.0-44.9, adult Status: Chronic (14) Neurogenic bladder Status: Chronic (15) Neurogenic bowel Status: Chronic (16) Non-compliance Status: Chronic (17) Normochromic normocytic anemia Status: Chronic Comment: HGB normal in Apr 2018 (18) Spina bifida aperta of lumbar spine Status: Chronic Comment: s/p surgery x 2 weakness and numbness in legs neurogenic bladder and frequent UTIs (19) Type 2 diabetes mellitus with diabetic polyneuropathy Status: Chronic (20) Ulcer of left heel and midfoot with fat layer exposed Status: Chronic (21) Cellulitis of left lower extremity Status: Suspected Past Medical History - Allergies and Home Meds Allergies/Adverse Reactions: Allergies mushroom Allergy (Verified 05/24/19 14:27) Anaphylaxis peanut Allergy (Verified 05/24/19 14:27) Anaphylaxis Gadolinium-MRI Contrast Medium Adverse Reaction (Verified 05/24/19 14:27) Vomiting Latex, Natural Rubber Adverse Reaction (Verified 05/24/19 14:27) Rash Primary Care Physician: Will Shukla MD [Primary Care Provider] - Prior records reviewed: Yes Past Medical History: - - See problem list Surgical History: cholecystectomy, - - D&C, lumbar back surgery x2, foot surgery x2, abdominal stoma, ventral hernia repair. supraPubic catheter Smoking Status: Never smoker Alcohol: None Drugs: None - Family History Paternal Family History: Family History (Last Reviewed 12/13/18 @ 21:[address] Gen Butt MD) Mother CVA (cerebral vascular accident) Thyroid disorder Diabetes Hypertension Family History: Reports: - - Denies known paternal medical history including cardiac history. Sibling Family History: Family History (Last Reviewed 12/13/18 @ 21:[address] Gen Butt MD) Mother CVA (cerebral vascular accident) Thyroid disorder Diabetes Hypertension Family History: Reports: - - Denies known sibling medical history. Maternal Family History: Family History (Last Reviewed 12/13/18 @ 21:[address] Gen Butt MD) Mother CVA (cerebral vascular accident) Thyroid disorder Diabetes Hypertension Family History: Reports: Cancer, Diabetes, Hypertension, Stroke Review of Systems General: Denies: Chills, Fever, Sweats Eyes: Denies: Visual changes - bilaterally, Diplopia ENT: Denies: Rhinorrhea, Sore throat Cardiovascular: Reports: Chest pain. Denies: Palpitations Respiratory: Denies: Dyspnea, Cough, Dyspnea on exertion Gastrointestinal: Denies: Abdominal pain, Nausea, Vomiting, Diarrhea, Melena, Hematochezia Genitourinary: Denies: Dysuria, Hematuria, Frequency Musculoskeletal: Denies: Back pain, Extremity Pain Skin: Denies: Rash, Wounds Neurological: Denies: Headache, Weakness, Numbness Physical Exam Vital Signs/Narrative: Vital Signs Temp Pulse Resp BP Pulse Ox 08/13/19 22:45 82 18 138/86 H 99 08/13/19 22:39 99.0 F 70 22 H 99 General: Well nourished, Well developed, No Acute Distress Head: Normocephalic, Atraumatic Eyes: Perrl, EOMI ENT: Moist mucous membranes, No rhinorrhea Neck: Supple, Nontender Cardiovascular: Regular rate, Regular rhythm, No murmurs Respiratory: No distress, CTA bilaterally, Chest nontender Abdomen: Soft, Nontender, Nondistended, Normal bowel sounds, - - supraPubic catheter clean dry and intact without cellulitis or infection surrounding the catheter insert site Back: Nontender, Normal Inspection Extremities: Nontender, No edema Skin: Normal color, No rash Neurological: Alert, Oriented x3, Cranial nerves II-XII grossly intact, Normal Strength, Normal Sensation Psychological: Normal affect, Normal Mood Diagnostic/Tx/Re-eval Impressions Chest X-Ray 08/13/19 23:00 IMPRESSION: No acute cardiopulmonary disease. No significant interval change. Electronically Signed: Klaudia Hyde MD at 23:14 EDT , Service support , 08/13/19 23:00 Chest PA and Lateral [RAD] Stat Laboratory Results 08/13/19 08/13/19 22:55 22:55 WBC 12.7 H RBC 4.92 Hgb 14.2 Hct 43.5 MCV 88.4 MCH 28.9 MCHC 32.6 RDW Std Deviation 42.9 RDW Coeff of Claude 13.3 Plt Count 232 MPV 10.7 Immature Gran % (Auto) 1.600 H Neut % (Auto) 67.5 Lymph % (Auto) 20.4 [place] % (Auto) 8.9 Eos % (Auto) 1.1 Baso % (Auto) 0.5 Absolute Neuts (auto) 8.6 H Absolute Lymphs (auto) 2.60 Nucleated RBC % 0 Sodium 135 L Potassium 4.3 Chloride 102 Carbon Dioxide 24.0 Anion Gap 9 BUN 9 Creatinine 1.21 H Estim Creat Clear Calc 50.35 Est GFR (MDRD) Af Amer 64 Est GFR (MDRD) Non-Af 53 L BUN/Creatinine Ratio 7.4 L Glucose 459 H* Calcium 8.7 Troponin I < 0.015 - Medical Decision Making EKG shows normal sinus rhythm at a rate of 83 with no ischemia or arrhythmia. Patient given oral Tylenol. Lab work and chest x-ray obtained chest x-ray normal. Troponin negative. CBC shows a mild leukocytosis. She has a chronic leukocytosis generally. She has had normal white blood cell counts but she normally runs high. I do not think she has an infection. Electrolytes show a blood sugar greater than 450. Given a dose of insulin subcu. There is no evidence of diabetic ketoacidosis. Patient also given IV fluids. She will be discharged to monitor sugars and follow-up as an outpatient. I do not think she has a PE or dissection or acute coronary syndrome. I do not feel she needs admission. She has had pain for 6 hours with a completely normal troponin. She is low risk for heart attack. On reevaluation blood sugar down to 309. Given a second dose of insulin and will be discharged home to follow-up as an outpatient. ED Disposition - Plan for ED Patient: Disposition: Home or Assisted Living Diagnosis: Chest pain, Diabetes mellitus with hyperglycemia Instructions: CHEST PAIN, NonCardiac Referrals: Will Shukla MD [Primary Care Provider] -
[2019-08-13 22:55] VITALS: O2SAT 100
[2019-08-13] MEDS: Acetaminophen 500 MG Tablet 1000 MG PO (23:00)
[2019-08-13] MEDS: 0.9% Normal Saline 1,000 ML 1000 ML IV (23:00)
--- NOTE | 2019-08-13 23:00 | RAD_ITS ---
STUDY: X-RAY CHEST REASON FOR EXAM: Female, 38 years old. Chest pain TECHNIQUE: PA and lateral views of the chest. COMPARISON: 07/08/2019. 05/24/2019 FINDINGS: There are superimposed monitor leads. The lungs are clear and expanded. There is no demonstrated pleural abnormality. Normal size heart. Normal mediastinum and cristiano. Normal visualized pulmonary arteries. Normal visualized aortic arch and descending thoracic aorta. Normal visualized thoracic spine. Normal visualized ribs, clavicles, and shoulders. There is no demonstrated abnormality of the visualized soft tissue structures of the upper abdomen. RAD/Chest PA and Lateral IMPRESSION: No acute cardiopulmonary disease. No significant interval change. Electronically Signed: Klaudia Hyde MD at 23:14 EDT , Service support ,
[2019-08-13 23:01] LABS: Absolute Neutrophil Count 8.6 X10^3/uL (2.0-7.7); Basophil# 0.07 X10^3/uL; Basophil% 0.5 % (0-1); Eosinophil# 0.14 X10^3/uL; Eosinophils% 1.1 % (0-5); Hematocrit 43.5 % (37-47); Hemoglobin 14.2 g/dL (12.0-15.0); Lymphocyte % 20.4 % (19-41); Mean Corp Hgb Conc 32.6 g/dL (32-36); Mean Corpuscular Hgb 28.9 pg (27.0-32.0); Mean Corpuscular Volume 88.4 fL (81-99); Mean Platelet Vol. 10.7 fl (6.2-12.0); Monocyte# 1.14 X10^3/uL; Monocyte% 8.9 % (0-10); NRBC Flagged by Analyzer 0 % (0-5); Neutrophil # 8.58 X10^3/uL (2.7-7.7); Neutrophil % 67.5 % (47-70); Platelet Count 232 K/mm3 (150-450); RBC Distribution Width CV 13.3 % (11.6-14.6); RBC Distribution Width SD 42.9 fl (35.1-43.9); Red Blood Count 4.92 M/mm3 (4.2-5.4); White Blood Count 12.7 K/mm3 (4.4-11.0)
[2019-08-13 23:29] LABS: Anion Gap 9 (5-15); BUN 9 mg/dL (7-18); BUN/Creat Ratio 7.4 RATIO (10-20); Calcium,Total 8.7 mg/dL (8.5-10.1); Chloride 102 mmol/L (98-107); Creatinine, Serum 1.21 mg/dL (0.55-1.02); EST Glomerular Filtration Rate 53 mL/min (>60); Est Glom Filt Rate - Afr Amer 64 mL/min (>60); Estimated Creatinine Clearance 50.35 ml/min; Glucose 459 mg/dL (74-106); Potassium 4.3 mmol/L (3.5-5.1); Sodium Level 135 mmol/L (136-145)
[2019-08-13] MEDS: Insulin Lispro 100 UNIT/ML INSULN.PEN 15 UNIT SC (23:58)
[2019-08-14 01:06] VITALS: BP 120/71; PULSE 69; RESP 16; O2SAT 94
[2019-08-14 01:06] LABS: Bedside Glucose 312 mg/dL (70-110)
[2019-08-14] MEDS: Insulin Lispro 100 UNIT/ML INSULN.PEN 10 UNIT SC (01:25)
[2019-08-14 01:31] VITALS: BP 134/85; PULSE 69; RESP 16; TEMP 37; O2SAT 98
== END 2019-08-14 01:32 | disposition home or self-care (01) ==
PROVIDERS: Emergency Provider Emergency Medicine; PCP Family Medicine
DX: R07.9 Chest pain, unspecified (principal); E11.65 Type 2 diabetes mellitus with hyperglycemia; M54.9 Dorsalgia, unspecified; G89.29 Other chronic pain; F32.9 Major depressive disorder, single episode, unspecified; K59.00 Constipation, unspecified; E11.621 Type 2 diabetes mellitus with foot ulcer; E11.42 Type 2 diabetes mellitus with diabetic polyneuropathy; E66.01 Morbid (severe) obesity due to excess calories; K59.2 Neurogenic bowel, not elsewhere classified; N31.9 Neuromuscular dysfunction of bladder, unspecified; Q05.9 Spina bifida, unspecified; Z68.41 Body mass index [BMI] 40.0-44.9, adult; Z82.49 Family history of ischemic heart disease and other diseases of the circulatory system; Z90.49 Acquired absence of other specified parts of digestive tract; Z91.040 Latex allergy status
CPT/HCPCS: 71046; 80048; 82962; 84484; 85025; 93005; 99285; J7030; A4216

== ENCOUNTER 2019-10-02 19:34 | Emergency (ER) | payer MEDICARE, MEDICAID, SELFPAY ==
[2019-10-02 19:34] VITALS: BP 140/93; PULSE 110; RESP 18; TEMP 36.3; O2SAT 97; BMI 40.7
--- NOTE | 2019-10-02 19:55 | CT_ITS ---
STUDY: CT ABDOMEN AND PELVIS WITH CONTRAST REASON FOR EXAM: Female, 38 years old. Lower abdominal pain for 2 weeks. Elevated white count. History of diabetes, hypertension, spina bifida, UTI and neurologic bladder with indwelling catheter. Cholecystectomy ventral hernia repair. RADIATION DOSAGE (If Supplied By Facility): CTDIvol = ( 28.03 ) mGy, DLP = ( 2153.53 ) mGycm TECHNIQUE: Transaxial images were obtained from the dome of the diaphragm to the symphysis pubis without oral contrast. IV 100mL Isovue-300 was administered. Sagittal and coronal images were reconstructed. Individualized dose optimization techniques were used for this CT. COMPARISON: CT of the abdomen and pelvis, January 11, 2019. FINDINGS: The visualized lung bases are unremarkable. The visualized portions of the heart are within normal limits. There is diffuse fatty infiltration of liver which appears enlarged. There is a prominent left lateral and caudate lobe. There is no focal mass. The gallbladder is not visualized and surgically absent. There is no biliary ductal abnormality. Normal spleen. Normal pancreas. Normal bilateral adrenal glands. Normal right kidney. Normal left kidney. Normal bilateral ureters. Normal visualized stomach. Normal small intestine. Colon is markedly redundant and filled with feces. There is no mass or obstruction. There is non-visualization of the appendix. Normal abdominal aorta. Normal inferior vena cava. Normal retroperitoneum. Urinary bladder is thick-walled and collapsed about a suprapubic catheter. The uterus is anteverted and tilted to the right. There is no adnexal mass. There is no pelvic lymphadenopathy. No free air or free fluid is seen within the peritoneal cavity. Umbilical hernia of omental fat. There is mesh along the anterior peritoneal surface consistent with ventral hernia repair. There is a subumbilical midline surgical scar. Normal osseous structures. CT/Abdomen/Pelvis W IV Cont ONLY IMPRESSION: 1. Enlarged, fatty infiltrated liver. 2. Redundant colon with increased feces consistent with constipation. 3. Suprapubic catheter with bladder wall thickening. 4. No acute intra-abdominal or pelvic abnormality or major interval change. Electronically Signed: José Luis Birmingham DO at 21:53 EDT Tel [phone], Service support ,
[2019-10-02 20:03] LABS: Mucous, Urine 0 SEEN /hpf (<or=2+)
[2019-10-02] MEDS: 0.9% Normal Saline 1,000 ML 1000 ML IV (20:17)
[2019-10-02] MEDS: Ondansetron 4 MG/2 ML Vial IV (20:19)
[2019-10-02] MEDS: Morphine 4 MG/ML Syringe IV ×2 (20:19→21:31)
[2019-10-02 20:25] VITALS: BP 121/72; PULSE 94; RESP 18; TEMP 36.8; O2SAT 99
[2019-10-02 20:29] VITALS: BP 121/72; PULSE 89; RESP 16; TEMP 36.8; O2SAT 98
[2019-10-02 20:39] LABS: Absolute Lymphocyte Count 2.72 X10^3/uL (0.83-4.51); Absolute Neutrophil Count 9.3 X10^3/uL (2.0-7.7); Basophil# 0.07 X10^3/uL; Basophil% 0.5 % (0-1); Eosinophil# 0.19 X10^3/uL; Eosinophils% 1.4 % (0-5); Hematocrit 39.1 % (37-47); Lymphocyte # 2.72 X10^3/ul (4.0); Mean Corp Hgb Conc 33.2 g/dL (32-36); Mean Corpuscular Volume 87.1 fL (81-99); Mean Platelet Vol. 10.9 fl (6.2-12.0); Monocyte# 1.29 X10^3/uL; Monocyte% 9.5 % (0-10); NRBC Flagged by Analyzer 0 % (0-5); Neutrophil # 9.25 X10^3/uL (2.7-7.7); Neutrophil % 67.8 % (47-70); Platelet Count 214 K/mm3 (150-450); RBC Distribution Width CV 13.8 % (11.6-14.6); RBC Distribution Width SD 43.8 fl (35.1-43.9); Red Blood Count 4.49 M/mm3 (4.2-5.4); White Blood Count 13.6 K/mm3 (4.4-11.0)
--- NOTE | 2019-10-02 20:41 | ED.DCSUM_ITS ---
- ER Visit Summary Date of Service: 10/02/19 Chief Complaint: Bilateral lower quadrant abdominal pain History of Present Illness: The patient is a 38 F history of spina bifida, diabetes, renal insufficiency, UTIs and suprapubic catheter. She has had 2 prior spine surgeries and a prior cholecystectomy. Patient states that she has had lower quadrant abdominal pain for last 2 days. Associated nausea but no vomiting or diarrhea. No constipation. She straight caths herself for urine. No fever. Physical Examination: Middle-aged female no acute distress vital signs stable afebrile. Complaint lower abdominal pain. H EENT exam unremarkable. Neck nontender. Lungs clear to auscultation. Heart regular rhythm no murmur. Abdomen soft. Nondistended. Normal bowel sounds. Bilateral lower quadrant tenderness. No rebound, guarding or rigidity. No signs of obstruction. Suprap ubic catheter. Patient moving all 4 extremities. Neurologically she is awake and alert. No focal motor deficits. Test Results: White count 13,600. Hemoglobin of 13. No bands chemistries unremarkable except for sodium 133. Glucose of 485. Anion gap is 6. Creatinine of 1 UA consistent with urinary tract infection with positive nitrites, 50-100 white blood cells and bacteria. Culture was sent. Serum test was negative. CAT scan with IV contrast showed a fatty liver. Increased stool consistent with constipation. But no acute intra-abdominal or pelvic abnormality per the radiologist. Read by them and reviewed by me. Emergency Department Course and Treatment: Patient with bilateral lower quadrant abdominal pain. Differential would include UTI, diverticulitis, appendicitis versus other etiologies. Labs, urinalysis and CAT scan with IV contrast being obtained. Patient being treated with IV fluids, morphine and Zofran. Treatment Plan: Patient be treated for urinary tract infection. I looked up her latest cultures and they have been consistent with staph aureus and sensitive to doxycycline which she states she has been treated with before. She will also be put on magnesium citrate for constipation. On repeat exam she is doing well 0. A urine culture was sent. Follow-up with her outpatient physician. She also be treated with 1 dose of subcu insulin for her hyperglycemia. Instructed to check her blood sugar before bedtime and night before she goes to sleep. Disposition: Discharge Impression: Acute bilateral lower quadrant abdominal pain Acute UTI History of [id number] diabetes with acute hyperglycemia History of spina bifida History of chronic indwelling suprapubic Morales catheter History of cholecystectomy This note was generated with [employer] dictation software. It may contain incorrect words, spelling, and punctuation that were not noted in review of the chart prior to signing ED Disposition - Plan for ED Patient: Referrals: Will Shukla MD [Primary Care Provider] -
[2019-10-02 20:42] LABS: Color, Urine Yellow (Yellow); Glucose, Dipstick 1000 mg/dl (Normal); Ketone-Dipstick Negative (Negative); Leukocyte Esterase-Dipstick 500 /ul (Negative); Nitrite-Dipstick Positive (Negative); Occult Blood-Urine 50 /ul (Negative); Protein-Dipstick 30 mg/dl (Negative); Urine Bilirubin Dipstick Negative (Negative); Urine Urobilinogen Normal (Normal)
[2019-10-02 20:58] LABS: Anion Gap 6 (5-15); BUN 11 mg/dL (7-18); BUN/Creat Ratio 10.7 RATIO (10-20); Calcium,Total 8.8 mg/dL (8.5-10.1); Chloride 103 mmol/L (98-107); Creatinine, Serum 1.03 mg/dL (0.55-1.02); EST Glomerular Filtration Rate 64 mL/min (>60); Est Glom Filt Rate - Afr Amer 77 mL/min (>60); Estimated Creatinine Clearance 59.15 ml/min; Glucose 485 mg/dL (74-106); Potassium 4.1 mmol/L (3.5-5.1); Sodium Level 133 mmol/L (136-145)
[2019-10-02 21:00] VITALS: BP 120/73; PULSE 84; RESP 14; TEMP 36.7; O2SAT 98
[2019-10-02 21:04] LABS: Internal QC Validated? YES +Cl - CLEAR BKGD; Pregnancy, Serum, hCG Quali. NEGATIVE Negative
[2019-10-02 21:07] LABS: Bacteria RARE /hpf (None Seen); Red Blood Cells-Urine 5-10 SEEN /hpf (0-5); Squamous Epithelial Cells - UA 0-5 SEEN /hpf (5-10); Urine Clarity Sl Cldy (Clear); White Blood Cells 50-100 SEEN /hpf (0-5)
[2019-10-02 22:00] VITALS: BP 130/84; PULSE 78; RESP 18; TEMP 36.8; O2SAT 98
[2019-10-02 22:48] VITALS: BP 130/84; PULSE 79; RESP 18; O2SAT 98
--- NOTE | 2019-10-02 22:55 | ED.DEP ---
ED Disposition - Plan for ED Patient: Disposition: Home or Assisted Living Instructions: ED CYSTITIS Female Adult, ED Constipation, ED Diabetic Hyperglycemia Prescriptions: Doxycycline [Vibramycin] 100 mg PO BID #20 cap Prescription Printed Referrals: Will Shukla MD [Primary Care Provider] - 1-2 Days if not improving Additional Instructions: Take the bottle magnesium citrate if you do not have a bowel movement by tomorrow morning. Plenty of fluids. Stool softener as needed. You have a urinary tract infection we will treat that with doxycycline. Out of the 1 pill twice a day for 10 days. Has been on this before in the past. Your urine cultures in the past have been sensitive to this antibiotic. I did send a urine culture tonight. Those results should be back in the next 24 to 48 hours. Follow-up with your doctor to ensure you are improving. Your blood sugar tonight was 485 we gave you a dose of insulin. Make sure you check your blood sugar prior to going to bed tonight. If it is running below 200 make sure you eat a snack before bedtime. Watch her blood sugars very closely next several days.
[2019-10-02] MEDS: Magnesium Citrate 300 ML PO (23:06)
[2019-10-02] MEDS: Doxycycline 100 MG CAPSULE PO (23:06)
[2019-10-02] MEDS: Insulin Lispro 100 UNIT/ML INSULN.PEN 10 UNIT SC (23:06)
== END 2019-10-02 23:11 | disposition home or self-care (01) ==
PROVIDERS: Emergency Provider Emergency Medicine; PCP Family Medicine
DX: N39.0 Urinary tract infection, site not specified (principal); R10.31 Right lower quadrant pain; R10.32 Left lower quadrant pain; E11.65 Type 2 diabetes mellitus with hyperglycemia; I10 Essential (primary) hypertension; Q05.9 Spina bifida, unspecified; K76.0 Fatty (change of) liver, not elsewhere classified; Q43.8 Other specified congenital malformations of intestine; Z79.84 Long term (current) use of oral hypoglycemic drugs; Z90.49 Acquired absence of other specified parts of digestive tract
CPT/HCPCS: 74177; 80048; 81001; 84703; 85025; 87077; 87086; 87088; 87186; 96361; 96374; 96375; 96376; 99285; J7030; Q9967; A4216; J2405

== ENCOUNTER 2019-10-20 17:14 | Emergency (ER) | payer MEDICARE, MEDICAID, SELFPAY ==
[2019-10-20 17:15] VITALS: BP 138/93; PULSE 97; RESP 18; TEMP 36.8; O2SAT 96; BMI 42.3
--- NOTE | 2019-10-20 17:31 | EKG12_ITS ---
Test Reason : Blood Pressure : / mmHG Vent. Rate : 104 BPM Atrial Rate : 104 BPM P-R Int : 130 ms QRS Dur : 076 ms QT Int : 334 ms P-R-T Axes : 031 041 024 degrees QTc Int : 439 ms Sinus tachycardia Otherwise normal ECG Confirmed by YARIEL FITZGERALD, ANUM ([id number]), multimedia editor LASHA HAY ([id number]) on 10/22/2019 3:19:45 PM Referred By: Confirmed By:ANUM SALDIVAR MD
--- NOTE | 2019-10-20 17:31 | ED.VIS.GEN ---
History of Present Illness Chief Complaint: Chest Pain Informant: Patient Narrative: Patient today states that several days ago she got a pain shot and it has not helped and she has had intermittent chest pain since then that is worse today. She describes it as tightness across the anterior chest. She states that she is extremely scared she is having a heart attack. To get specific the patient received a steroid injection through pain management. She states that it has not helped. She states over the past month her blood sugars have been tao high. By this she states that her come at her goes to 500 and it will not even register on her's. When I ask even more pointed questions and mention we will check her blood sugar today she states that we can but it was 309 before she came in. When asked that she is anxiety she states yes but has not had a problem with her anxiety for a very long time. She is a care plan patient Past Medical History - Allergies and Home Meds Allergies/Adverse Reactions: Allergies mushroom Allergy (Verified 05/24/19 14:27) Anaphylaxis peanut Allergy (Verified 05/24/19 14:27) Anaphylaxis Gadolinium-MRI Contrast Medium Adverse Reaction (Verified 05/24/19 14:27) Vomiting Latex, Natural Rubber Adverse Reaction (Verified 05/24/19 14:27) Rash Primary Care Physician: Will Shukla MD [Primary Care Provider] - Surgical History: cholecystectomy, - - D&C, lumbar back surgery x2, foot surgery x2, abdominal stoma, ventral hernia repair. supraPubic catheter Smoking Status: Never smoker - Family History Paternal Family History: Family History (Last Reviewed 12/13/18 @ 21:[address] Gen Butt MD) Mother CVA (cerebral vascular accident) Thyroid disorder Diabetes Hypertension Family History: Reports: - - Denies known paternal medical history including cardiac history. Sibling Family History: Family History (Last Reviewed 12/13/18 @ 21:[address] Gen Butt MD) Mother CVA (cerebral vascular accident) Thyroid disorder Diabetes Hypertension Family History: Reports: - - Denies known sibling medical history. Maternal Family History: Family History (Last Reviewed 12/13/18 @ 21:[address] Gen Butt MD) Mother CVA (cerebral vascular accident) Thyroid disorder Diabetes Hypertension Family History: Reports: Cancer, Diabetes, Hypertension, Stroke Review of Systems General: Denies: Chills, Fever, Sweats Eyes: Denies: Visual changes - bilaterally, Diplopia ENT: Denies: Rhinorrhea, Sore throat Cardiovascular: Reports: Chest pain. Denies: Palpitations Respiratory: Reports: Dyspnea. Denies: Cough, Dyspnea on exertion Gastrointestinal: Denies: Abdominal pain, Nausea, Vomiting, Diarrhea, Melena, Hematochezia Genitourinary: Denies: Dysuria, Hematuria, Frequency Musculoskeletal: Reports: Back pain - Chronic, - - Patient reports her entire body hurts. Denies: Extremity Pain Skin: Denies: Rash, Wounds Neurological: Denies: Headache, Weakness, Numbness Psych: Reports: Anxiety. Denies: Suicidal thoughts, Suicidal ideations Physical Exam Vital Signs/Narrative: Vital Signs Temp Pulse Resp BP Pulse Ox 10/20/19 17:15 98.3 F 97 18 138/93 H 96 Inital Vital Signs reviewed: Yes General: Well nourished, Well developed, Obese, No Acute Distress Head: Normocephalic, Atraumatic Eyes: Perrl, EOMI ENT: Moist mucous membranes, No rhinorrhea Neck: Supple, Nontender Cardiovascular: Regular rate, Regular rhythm, No murmurs Respiratory: No distress, CTA bilaterally, Chest nontender Abdomen: Soft, Nontender, Nondistended, Normal bowel sounds Back: - - I do not see any areas concerning for abscess or cellulitis near the injection site. Well-healed surgical scar. Extremities: Nontender, No edema Skin: Normal color, No rash Neurological: Alert, Oriented x3, Cranial nerves II-XII grossly intact, Normal Strength, Normal Sensation Psychological: - - Patient is tearful but can immediately stop and speak normally. Diagnostic/Tx/Re-eval - EKG Initial EKG Interpretation: Sinus Rhythm - EKG is sinus tach at a rate of 104. Neuro no concerning features of ACS. This is compared to 13 August 2019 with no significant changes. - Medical Decision Making Patient's blood sugar here is 297. I cannot do anything for the patient's chronic pain. I think her chest pain is most likely due to anxiety. She tells me that her mom of a diabetic heart attack and she was concerned. At this point patient will be discharged home. She is to follow-up with her doctors and was given reassurance. ED Disposition - Plan for ED Patient: Disposition: Home or Assisted Living Diagnosis: Chest pain, Anxiety Instructions: ED Chest Pain NonCardiac Referrals: Will Shukla MD [Primary Care Provider] - 3-5 Days if not improving
[2019-10-20 17:41] LABS: Bedside Glucose 297 mg/dL (70-110)
== END 2019-10-20 17:56 | disposition home or self-care (01) ==
LOC: ED 17:45
PROVIDERS: Emergency Provider Emergency Medicine; PCP Family Medicine
DX: R07.9 Chest pain, unspecified (principal); F41.9 Anxiety disorder, unspecified; I25.2 Old myocardial infarction; Z82.49 Family history of ischemic heart disease and other diseases of the circulatory system; Z90.49 Acquired absence of other specified parts of digestive tract; Z91.040 Latex allergy status
CPT/HCPCS: 82962; 93005; 99282

== ENCOUNTER → 2019-11-06 | Outpatient (CLI) | payer MEDICARE, MEDICAID, SELFPAY ==
--- NOTE | 2019-11-06 14:00 | FLU_PTH ---
PATIENT: HEBER BAILON LOC: [facility] U#:[id number] AGE/SX: 38/F ROOM: RE11/06/[address]: Dr. Nemesio Josue MD : 1980 BED: DIS: 11/06/2019 SPEC #: [id number] RECD: 11/07/19 12:02 STATUS: KIM MARY #: [id number] EFRAIN: 11/06/19 14:[address]: Nemesio Josue DEPT: CYTOLOGY RECD BY: Nam Lezama ENTERED: 11/07/19 12:43 SP TYPE: Fluid OTHR DR: Dr. Will Shukla MD Tissues: A - Thyroid gland, NOS B - Thyroid gland, NOS Procedures: Special Stain Group II Surgery Specimen Level IV Cytospin Fluid HEADER OPERATION: Ultrasound-guided fine needle aspiration right thyroid PRE-OP DIAGNOSIS: Multinodular goiter TISSUE SUBMITTED: A - FNA right thyroid fluid for cytology, B - FNA right thyroid 12 slides DIAGNOSIS CYTOLOGY A. Right thyroid fluid, ultrasound-guided FNA (cytospin and cell block): Consistent with cyst contents. See cytology study and comment. B. Right thyroid, ultrasound-guided FNA (smears): Benign follicular/colloid nodule with cystic changes. Adequate for evaluation. See comment. SJ:rg 11/08/19 COMMENT Correlation with clinical, radiologic findings and appropriate follow up are necessary. Please make reference to previous specimen ([id number]) fine needle aspiration, right thyroid nodule (cytospin and cell block) and fine needle aspiration, right thyroid nodule (smears) with diagnosis of consistent with cystic colloid nodule. Case has been reviewed in consultation with Dr. Park who concurs with the above diagnosis. IDC:AM CYTOLOGY STUDY Slides are reviewed. A. The specimen consists of a few benign follicular cells and macrophages. CYTOLOGY GROSS A - Received is 2 ml of red cloudy fluid labeled with the patient's name and and designated per the requisition as right thyroid. Submitted for cytology preparation including cell block. B - Received are 12 smears labeled with the patient's name and designated per the requisition as right thyroid. Submitted for staining. / kateryna 11/07/19 TC:5 CPT: 85141, 45254, 30503
[2019-11-06 14:11] VITALS: BMI 42.3
== END | disposition home or self-care (01) ==
LOC: LABSPEC 11-07 13:44
PROVIDERS: PCP Family Medicine; Referring Provider Surgery; Visit Provider Surgery
DX: E04.2 Nontoxic multinodular goiter (principal)
CPT/HCPCS: 88108; 88305; 88313

== ENCOUNTER → 2019-12-09 10:02 | Outpatient (CLI) | payer MEDICARE, MEDICAID, SELFPAY ==
[2019-11-13 15:11] VITALS: BMI 42.3
--- NOTE | 2019-12-09 10:03 | STEWCON_ITS ---
Reason For Study: Chest Pain Stress Results Protocol: Dobutamine Stress Echo With Definity Maximum Predicted HR: 182 bpm Target HR: 155 bpm % Maximum Predicted HR: 78 % Heart Stage Duration Rate BP Comment (mm:ss) (bpm) Baseline 77 127/80No Chest Pain; 4 ML Diluted Definity DSE 10 MCG 3:32 96 114/73No Chest Pain DSE 20 Mod Chest Pain; Dobutamine Turned Off d/t Overexaggerated MCG 9:53 142 132/83Hyperdynamic Response Recovery 93 123/84No Chest Pain Stress Duration: 13:25 mm:ss Maximum Stress HR: 142 bpm METS: 1 Baseline Echocardiogram Findings Stress Echo Wall motion Data Resting WM Intermediate WM Stress WM Interpretation Summary Dobutamine stress echocardiogram with echo contrast. 39-year-old lady with a history hypertension, hyperlipidemia. Stress protocol: Resting EKG demonstrates normal sinus rhythm with a rate of 86 bpm normal intervals are noted resting blood pressure is 127/80 mmHg. Dobutamine was infused starting at 10 mcg/kg/min to a peak of 20 mcg/kg/min. The patient maintained sinus rhythm throughout the recording. The maximum heart rate attained was 142 bpm which was 78% of max impacted heart rate the maximum workload was 1 metabolic equivalent. The test was terminated due to near chamber obliteration. There were no EKG changes noted to suggest ischemia. The resting blood pressure was 127/80 mmHg with a peak of 132/83 mmHg. Mild chest discomfort was noted. Resting echocardiogram demonstrated preserved ejection fraction of 60% with Definity enhancement. At peak infusion there was no chamber obliteration with peaking of ejection fraction of approximately 85%. No wall motion abnormalities were noted. The test was terminated due to the above. Conclusion: Dobutamine stress echocardiogram with no EKG or echocardiographic criteria for ischemia. Ordering Physician: Rojas Oates Referring Physician: Will Shukla Performed By: Mike García RCS
== END ==
PROVIDERS: PCP Family Medicine; Referring Provider Internal Medicine Cardiovascular Disease; Visit Provider Internal Medicine Cardiovascular Disease
DX: R07.9 Chest pain, unspecified (principal)
CPT/HCPCS: 93017; 93350; J7040; Q9957; A4216; C8928

== ENCOUNTER 2019-12-24 15:26 | Emergency (ER) | payer MEDICARE, MEDICAID, SELFPAY ==
[2019-11-13 15:11] VITALS: BMI 42.3
[2019-12-24 15:28] VITALS: BP 140/82; PULSE 99; RESP 18; TEMP 36.4; O2SAT 97; BMI 42.6
--- NOTE | 2019-12-24 15:57 | CT_ITS ---
STUDY: CT ABDOMEN AND PELVIS WITH CONTRAST REASON FOR EXAM: Female, 39 years old. ABD AND FLANK PAIN. r/o pyelonephritis. KNAPP STOMA, SUPRA PUBIC CATH FROM NEOBLADDER FROM SPINA BIFIDA, HERNIA REPAIR, [place] RADIATION DOSAGE (If Supplied By Facility): CTDIvol = ( 20.22 ) mGy, DLP = ( 2102.88 ) mGycm TECHNIQUE: Transaxial images were obtained from the dome of the diaphragm to the symphysis pubis without oral contrast. Oral and amp; IV Gastrografin and amp; 100mL Isovue-300 was administered. Sagittal and coronal images were reconstructed. Individualized dose optimization techniques were used for this CT. COMPARISON: 10/02/2019. FINDINGS: Calcified granulomas in the right lung base. Lung bases are otherwise unremarkable. Heart size is normal. Diffuse fatty infiltration of the liver. The gallbladder is unremarkable. The spleen and pancreas are unremarkable. The adrenal glands are normal. Moderate right renal atrophy. The kidneys are otherwise unremarkable. No stones or hydronephrosis. The aorta is normal in caliber. There is no free fluid, free air, or organized collection. No bowel obstruction or inflammatory change. Normal appendix. Suprapubic catheter in place. Urinary bladder is decompressed. Low-attenuation lesion in the uterine fundus is new compared to the prior study. Involuting right ovarian cyst. Normal abdominal wall. Absent posterior elements L3-L5 consistent with spina bifida. CT/Abdomen/Pelvis WITH Contrast IMPRESSION: 1. Involuting right ovarian cyst, otherwise no acute findings or significant change. 2. Low attenuation lesion in the uterine fundus is new compared to the prior study. Question hemorrhage or new mass. 3. Hepatic steatosis. 4. Right renal atrophy. 5. Old granulomatous disease. Electronically Signed: Jessie Patel MD at 18:53 EDT Tel , Service support ,
--- NOTE | 2019-12-24 16:04 | ED.DCSUM_ITS ---
History of Present Illness <Rigo Espinal - Last Filed: 12/25/19 01:18> Informant: Patient Narrative: Patient is a 39-year-old female with a past medical history of spina bifida presents to emerge department for diffuse abdominal pain and right-sided flank pain. Her symptoms started earlier today. She has had mild abdominal pain over the past month. It did become very severe today. She is been taking Tylenol. He states that she has been having some constipation which she takes npor-blb-naccwll medications for. She did have a large bowel movement yesterday that was nonbloody, non-melanotic. She has been feeling nauseous but no episodes of vomiting. She describes the pain is severe. Eating and drinking has made the pain worse. No known relieving factors. She has had this pain before in the past where she feels like she has had abdominal hernia. She is also had a history of pyelonephritis. She has a suprapubic catheter in place. She is to be on antibiotics constantly but has not been on them recently. She denies any fevers or chills. No chest pain or shortness of breath. No cough. She did have her suprapubic catheter changed 2 weeks ago. <Gen Hawkins - Last Filed: 12/25/19 13:25> Chief Complaint: Abd Pain Past Medical History - Family History Paternal Family History: Family History (Last Reviewed 11/13/19 @ 15:[address] Rojas Oates MD) Mother CVA (cerebral vascular accident) Thyroid disorder Diabetes Hypertension Heart disease Hyperlipidemia Myocardial infarction, Onset Age: 54 Father Cancer Grandmother Cancer Sibling Family History: Family History (Last Reviewed 11/13/19 @ 15:[address] Rojas Oates MD) Mother CVA (cerebral vascular accident) Thyroid disorder Diabetes Hypertension Heart disease Hyperlipidemia Myocardial infarction, Onset Age: 54 Father Cancer Grandmother Cancer Maternal Family History: Family History (Last Reviewed 11/13/19 @ 15:[address] Rojas Oates MD) Mother CVA (cerebral vascular accident) Thyroid disorder Diabetes Hypertension Heart disease Hyperlipidemia Myocardial infarction, Onset Age: 54 Father Cancer Grandmother Cancer <Rigo Espinal - Last Filed: 12/25/19 01:18> Prior records reviewed: Yes Past Medical History: - - Hypertension, hyperlipidemia, spina bifida, diabetes Surgical History: cholecystectomy, - - D&C, lumbar back surgery x2, foot surgery x2, abdominal stoma, ventral hernia repair. supraPubic catheter Smoking Status: Never smoker - Family History Paternal Family History: Family History (Last Reviewed 11/13/19 @ 15:[address] Rojas Oates MD) Mother CVA (cerebral vascular accident) Thyroid disorder Diabetes Hypertension Heart disease Hyperlipidemia Myocardial infarction, Onset Age: 54 Father Cancer Grandmother Cancer Family History: Reports: - - Denies known paternal medical history including cardiac history. Sibling Family History: Family History (Last Reviewed 11/13/19 @ 15:[address] Rojas Oates MD) Mother CVA (cerebral vascular accident) Thyroid disorder Diabetes Hypertension Heart disease Hyperlipidemia Myocardial infarction, Onset Age: 54 Father Cancer Grandmother Cancer Family History: Reports: - - Denies known sibling medical history. Maternal Family History: Family History (Last Reviewed 11/13/19 @ 15:[address] Rojas Oates MD) Mother CVA (cerebral vascular accident) Thyroid disorder Diabetes Hypertension Heart disease Hyperlipidemia Myocardial infarction, Onset Age: 54 Father Cancer Grandmother Cancer Family History: Reports: Cancer, Diabetes, Hypertension, Stroke <Gen Hawkins - Last Filed: 12/25/19 13:25> - Allergies and Home Meds Allergies/Adverse Reactions: Allergies mushroom Allergy (Verified 12/24/19 15:28) Anaphylaxis peanut Allergy (Verified 12/24/19 15:28) Anaphylaxis Gadolinium-MRI Contrast Medium Adverse Reaction (Verified 12/24/19 15:28) Vomiting Latex, Natural Rubber Adverse Reaction (Verified 12/24/19 15:28) Rash Primary Care Physician: Will Shukla MD [Primary Care Provider] - 3-5 Days Review of Systems All systems negative except as indicated General: Denies: Chills, Fever, Sweats Eyes: Denies: Visual changes - bilaterally, Diplopia ENT: Denies: Rhinorrhea, Sore throat Cardiovascular: Denies: Chest pain, Palpitations Respiratory: Denies: Dyspnea, Cough, Dyspnea on exertion Gastrointestinal: Reports: Abdominal pain, Nausea, Constipation. Denies: Vomiting, Diarrhea, Melena, Hematochezia Genitourinary: Denies: Dysuria, Hematuria, Frequency Musculoskeletal: Reports: Back pain. Denies: Extremity Pain Skin: Denies: Rash, Wounds Neurological: Denies: Headache, Weakness, Numbness <Gen Hawkins - Last Filed: 12/25/19 13:25> Physical Exam Vital Signs/Narrative: Vital Signs Temp Pulse Resp BP Pulse Ox 12/24/19 15:28 97.6 F L 99 18 140/82 H 97 Inital Vital Signs reviewed: Yes General: Well nourished, Well developed, No Acute Distress Head: Normocephalic, Atraumatic Eyes: Perrl, EOMI ENT: Moist mucous membranes, No rhinorrhea Neck: Supple, Nontender Cardiovascular: Regular rate, Regular rhythm, No murmurs Respiratory: No distress, CTA bilaterally, Chest nontender Abdomen: Soft, Nondistended, Normal bowel sounds, Tender - Diffuse to light and deep palpation. No peritoneal signs., - - Suprapubic catheter in place, no surrounding cellulitis at insertion site.. Negative for: Guarding, Rebound tenderness Back: Nontender, Normal Inspection, CVA tenderness - On the right Extremities: Nontender, No edema Skin: Normal color, No rash Neurological: Alert, Oriented x3, Cranial nerves II-XII grossly intact, Normal Strength, Normal Sensation Psychological: Normal affect, Normal Mood <Gen Hawkins - Last Filed: 12/25/19 13:25> Diagnostic/Tx/Re-eval - Medical Decision Making Care of the patient was turned over to me. Patient had evidence of a urinary tract infection on urinalysis. CT scan does not show any evidence of acute pyelonephritis. Patient was given a prescription for Levaquin. Patient was given her first dose here. Patient was instructed to follow-up with her primary care physician in 3 to 5 days. Patient understood and was agreeable with the pl an. All questions were answered. <Rigo Espinal - Last Filed: 12/25/19 01:18> - Medical Decision Making Patient presents to the emergency department for abdominal pain, right-sided flank pain. Upon arrival to the emerge department she is afebrile with normal vital signs. She does have significant abdominal tenderness throughout as well as the right CVA. Will treat symptomatically and obtain basic lab work along with CT scan of the abdomen/pelvis. Patient signed out due to end of shift. She is currently stable at time of signout. CT scan and lab work currently pending along with urinalysis. I did follow-up on patient's lab work and CT scan the next day. CT scan showed a possible uterine hemorrhage versus mass. I did call and discussed this with the patient. Do recommend she have an outpatient ultrasound. Since she does not have an [facility] THERAPIST she is to call her PCP for this. She still having some abdominal discomfort that is worsened by eating. Recommend that she continue her antibiotic. Did discuss return precautions with her. She understands and is agreeable with this plan. <Gen Hawkins - Last Filed: 12/25/19 13:25> ED Disposition <Rigo Espinal - Last Filed: 12/25/19 01:18> <Gen Hawkins - Last Filed: 12/25/19 13:25> - Plan for ED Patient: Disposition: Home or Assisted Living Diagnosis: Urinary tract infection, Abdominal pain Instructions: ED CYSTITIS Female Adult Prescriptions: levoFLOXacin tablet [Levaquin] 500 mg PO DAILY #7 tab Prescription Printed Referrals: Will Shukla MD [Primary Care Provider] - 3-5 Days
[2019-12-24] MEDS: Ondansetron 4 MG/2 ML Vial IV (16:38)
[2019-12-24] MEDS: Morphine 4 MG/ML Syringe IV (16:39)
[2019-12-24 17:05] LABS: Absolute Lymphocyte Count 2.29 X10^3/uL (0.83-4.51); Absolute Neutrophil Count 5.5 X10^3/uL (2.0-7.7); Basophil# 0.05 X10^3/uL; Basophil% 0.5 % (0-1); Eosinophil# 0.26 X10^3/uL; Eosinophils% 2.8 % (0-5); Hematocrit 40.6 % (37-47); Hemoglobin 13.8 g/dL (12.0-15.0); Lymphocyte # 2.29 X10^3/ul (4.0); Lymphocyte % 24.9 % (19-41); Mean Corpuscular Hgb 30.9 pg (27.0-32.0); Mean Platelet Vol. 11.3 fl (6.2-12.0); Monocyte# 1.02 X10^3/uL; Monocyte% 11.1 % (0-10); NRBC Flagged by Analyzer 0 % (0-5); Neutrophil # 5.51 X10^3/uL (2.7-7.7); Neutrophil % 59.9 % (47-70); Platelet Count 210 K/mm3 (150-450); RBC Distribution Width CV 13.6 % (11.6-14.6); RBC Distribution Width SD 44.6 fl (35.1-43.9); Red Blood Count 4.46 M/mm3 (4.2-5.4); White Blood Count 9.2 K/mm3 (4.4-11.0)
[2019-12-24 17:19] LABS: Mucous, Urine 0 SEEN /hpf (<or=2+); Squamous Epithelial Cells - UA 0 SEEN /hpf (5-10)
[2019-12-24 17:21] LABS: Color, Urine Yellow (Yellow); Glucose, Dipstick 1000 mg/dl (Normal); Ketone-Dipstick Negative (Negative); Leukocyte Esterase-Dipstick 100 /ul (Negative); Nitrite-Dipstick Positive (Negative); Occult Blood-Urine 10 /ul (Negative); Protein-Dipstick 30 mg/dl (Negative); Specific Gravity, Urine 1.015 (1.002-1.030); Urine Bilirubin Dipstick Negative (Negative); Urine Clarity Sl. Cloudy (Clear); Urine Urobilinogen Normal (Normal)
[2019-12-24 17:22] LABS: Internal QC Validated? YES +Cl - CLEAR BKGD
[2019-12-24 17:25] LABS: Pregnancy, Urine Negative Negative
[2019-12-24 17:30] LABS: Bacteria 1+ /hpf (None Seen); Red Blood Cells-Urine 0-5 SEEN /hpf (0-5); White Blood Cells 10-25 SEEN /hpf (0-5)
[2019-12-24 17:58] LABS: ALB/GLOB Ratio 0.7 RATIO (0.9-2.4); AST(SGOT) 47 U/L (15-37); Alanine Aminotransfer ALT/SGPT 52 U/L (13-56); Albumin, Serum 3.2 g/dL (3.2-5.0); Alkaline Phosphatase 67 U/L (45-117); Anion Gap 5 (5-15); BUN 6 mg/dL (7-18); BUN/Creat Ratio 6.9 RATIO (10-20); Calcium,Total 8.4 mg/dL (8.5-10.1); Chloride 107 mmol/L (98-107); Creatinine, Serum 0.87 mg/dL (0.55-1.02); EST Glomerular Filtration Rate 78 mL/min (>60); Est Glom Filt Rate - Afr Amer 94 mL/min (>60); Estimated Creatinine Clearance 69.34 ml/min; Globulin 4.3 g/dL (2.2-4.2); Glucose 302 mg/dL (74-106); Lipase 83 U/L (73-393); Protein, Total 7.5 g/dL (6.4-8.2); Sodium Level 135 mmol/L (136-145)
[2019-12-24 20:06] VITALS: BP 123/87; PULSE 70; RESP 17; O2SAT 98
== END 2019-12-24 20:09 | disposition home or self-care (01) ==
PROVIDERS: Emergency Provider Emergency Medicine; PCP Family Medicine
DX: N39.0 Urinary tract infection, site not specified (principal); R10.9 Unspecified abdominal pain; E11.9 Type 2 diabetes mellitus without complications; E78.5 Hyperlipidemia, unspecified; I10 Essential (primary) hypertension; K59.00 Constipation, unspecified; K76.0 Fatty (change of) liver, not elsewhere classified; Q05.9 Spina bifida, unspecified; Z82.49 Family history of ischemic heart disease and other diseases of the circulatory system; Z90.49 Acquired absence of other specified parts of digestive tract; Z91.040 Latex allergy status
CPT/HCPCS: 36415; 74177; 80053; 81001; 81025; 83690; 85025; 96374; 96375; 99285; Q9967; A4216; J2405

== ENCOUNTER 2020-01-04 23:20 | Emergency (ER) | payer MEDICARE, MEDICAID, SELFPAY ==
[2020-01-04 23:21] VITALS: BP 138/98; PULSE 104; RESP 15; TEMP 36.4; O2SAT 98; BMI 42.6
--- NOTE | 2020-01-04 23:32 | ED.DCSUM_ITS ---
History of Present Illness Chief Complaint: Other, Pain/Inj Informant: Patient Onset: Days Context: Gradual Onset Timing: Continuous Current Severity: Moderate Maximum Severity: Moderate Narrative: The patient is a 39-year-old female with medical history significant for spina bifida who has suprapubic catheter that presents to the emergency department with lower abdominal pain. The patient was seen here about 10 days ago for the same complaints. She thought at that point, she had a urinary tract infection. Urine did show some evidence of infection she was started on antibiotics. The patient underwent CT at the time. There was evidence of a low attenuating lesion within the uterine fundus which was suspicious for an area of focal hemorrhage in the uterus. She states that she is been having vaginal bleeding for the past 3 weeks. She states that she is had some clots. She is also had a lot of cramping. She denies weakness or lightheadedness. She is scheduled to see [facility] LIA[facility] OFFICER in 4 days. Prior similar symptoms: Yes Recent Illness/Hospitalization: Yes Past Medical History - Allergies and Home Meds Allergies/Adverse Reactions: Allergies mushroom Allergy (Verified 01/04/20 23:26) Anaphylaxis peanut Allergy (Verified 01/04/20 23:26) Anaphylaxis Gadolinium-MRI Contrast Medium Adverse Reaction (Verified 01/04/20 23:26) Vomiting Latex, Natural Rubber Adverse Reaction (Verified 01/04/20 23:26) Rash Primary Care Physician: Will Shukla MD [Primary Care Provider] - Prior records reviewed: Yes Past Medical History: - - Spina bifida, diabetes, suprapubic catheter Surgical History: cholecystectomy, - - D&C, lumbar back surgery x2, foot surgery x2, abdominal stoma, ventral hernia repair. supraPubic catheter Smoking Status: Never smoker - Family History Paternal Family History: Family History (Last Reviewed 11/13/19 @ 15:[address] Rojas Oates MD) Mother CVA (cerebral vascular accident) Thyroid disorder Diabetes Hypertension Heart disease Hyperlipidemia Myocardial infarction, Onset Age: 54 Father Cancer Grandmother Cancer Family History: Reports: - - Denies known paternal medical history including cardiac history. Sibling Family History: Family History (Last Reviewed 11/13/19 @ 15:[address] Rojas Oates MD) Mother CVA (cerebral vascular accident) Thyroid disorder Diabetes Hypertension Heart disease Hyperlipidemia Myocardial infarction, Onset Age: 54 Father Cancer Grandmother Cancer Family History: Reports: - - Denies known sibling medical history. Maternal Family History: Family History (Last Reviewed 11/13/19 @ 15:[address] Rojas Oates MD) Mother CVA (cerebral vascular accident) Thyroid disorder Diabetes Hypertension Heart disease Hyperlipidemia Myocardial infarction, Onset Age: 54 Father Cancer Grandmother Cancer Family History: Reports: Cancer, Diabetes, Hypertension, Stroke Review of Systems General: Denies: Chills, Fever, Sweats Eyes: Denies: Visual changes - bilaterally, Diplopia ENT: Denies: Rhinorrhea, Sore throat Cardiovascular: Denies: Chest pain, Palpitations Respiratory: Denies: Dyspnea, Cough, Dyspnea on exertion Gastrointestinal: Reports: Abdominal pain. Denies: Nausea, Vomiting, Diarrhea, Melena, Hematochezia Genitourinary: Denies: Dysuria, Hematuria, Frequency Musculoskeletal: Denies: Back pain, Extremity Pain Skin: Denies: Rash, Wounds Neurological: Denies: Headache, Weakness, Numbness Physical Exam Vital Signs/Narrative: Vital Signs Temp Pulse Resp BP Pulse Ox 01/04/20 23:21 97.5 F L 104 H 15 138/98 H 98 Inital Vital Signs reviewed: Yes General: Well nourished, Well developed, No Acute Distress Head: Normocephalic, Atraumatic Eyes: Perrl, EOMI ENT: Moist mucous membranes, No rhinorrhea Neck: Supple, Nontender Cardiovascular: Regular rate, Regular rhythm, No murmurs Respiratory: No distress, CTA bilaterally, Chest nontender Abdomen: Soft, Nontender, Nondistended, Normal bowel sounds Back: Nontender, Normal Inspection Extremities: Nontender, No edema Skin: Normal color, No rash Neurological: Alert, Oriented x3, Cranial nerves II-XII grossly intact, Normal Strength, Normal Sensation Psychological: Normal affect, Normal Mood Diagnostic/Tx/Re-eval Abnormal Lab Results 01/04/20 01/04/20 23:50 23:50 WBC 13.1 H RBC 4.60 Hgb 14.1 Hct 42.1 MCV 91.5 MCH 30.7 MCHC 33.5 RDW Std Deviation 44.0 H RDW Coeff of Claude 13.2 Plt Count 293 MPV 10.7 Immature Gran % (Auto) 1.500 H Neut % (Auto) 59.5 Lymph % (Auto) 28.0 [place] % (Auto) 8.7 Eos % (Auto) 1.5 Baso % (Auto) 0.8 Absolute Neuts (auto) 7.8 H Absolute Lymphs (auto) 3.68 Nucleated RBC % 0 Sodium 136 Potassium 3.7 Chloride 102 Carbon Dioxide 25.0 Anion Gap 9 BUN 12 Creatinine 0.90 Estim Creat Clear Calc 67.03 Est GFR (MDRD) Af Amer 90 Est GFR (MDRD) Non-Af 75 BUN/Creatinine Ratio 13.4 Glucose 267 H Calcium 9.7 - Medical Decision Making I was able to review the patient's prior CT scan. There was an area of focal bleeding and questionable fibroid within the fundus of the uterus. Her abdomen is soft and nontender. She is not on anticoagulants. I did obtain screening labs. Her hemoglobin is stable. She has follow-up this week with [facility] OFF[facility]. I do not feel that she needs emergent ultrasound given her benign work-up. I am going to treat her with anti-inflammatories. She will follow-up with [facility] OFF[facility]ER as scheduled. Impression 1. Dysfunctional uterine bleeding ED Disposition - Plan for ED Patient: Instructions: ED Bleed Irregular Vaginal Prescriptions: Naproxen [Naprosyn] 500 mg PO BID PRN #20 tab Prescription Printed Referrals: Will Shukla MD [Primary Care Provider] -
[2020-01-04] MEDS: Ondansetron 4 MG/2 ML Vial IV (23:46)
[2020-01-04] MEDS: Morphine 4 MG/ML Syringe IV (23:47)
[2020-01-04] MEDS: Ketorolac 15 MG/ML Vial IV (23:49)
[2020-01-05 00:13] LABS: Absolute Lymphocyte Count 3.68 X10^3/uL (0.83-4.51); Absolute Neutrophil Count 7.8 X10^3/uL (2.0-7.7); Basophil% 0.8 % (0-1); Eosinophils% 1.5 % (0-5); Hematocrit 42.1 % (37-47); Hemoglobin 14.1 g/dL (12.0-15.0); Lymphocyte # 3.68 X10^3/ul (4.0); Mean Corp Hgb Conc 33.5 g/dL (32-36); Mean Corpuscular Hgb 30.7 pg (27.0-32.0); Mean Corpuscular Volume 91.5 fL (81-99); Mean Platelet Vol. 10.7 fl (6.2-12.0); Monocyte# 1.14 X10^3/uL; Monocyte% 8.7 % (0-10); NRBC Flagged by Analyzer 0 % (0-5); Neutrophil # 7.82 X10^3/uL (2.7-7.7); Neutrophil % 59.5 % (47-70); Platelet Count 293 K/mm3 (150-450); RBC Distribution Width CV 13.2 % (11.6-14.6); White Blood Count 13.1 K/mm3 (4.4-11.0)
[2020-01-05 00:22] LABS: Anion Gap 9 (5-15); BUN 12 mg/dL (7-18); BUN/Creat Ratio 13.4 RATIO (10-20); Calcium,Total 9.7 mg/dL (8.5-10.1); Chloride 102 mmol/L (98-107); EST Glomerular Filtration Rate 75 mL/min (>60); Est Glom Filt Rate - Afr Amer 90 mL/min (>60); Estimated Creatinine Clearance 67.03 ml/min; Glucose 267 mg/dL (74-106); Potassium 3.7 mmol/L (3.5-5.1); Sodium Level 136 mmol/L (136-145)
[2020-01-05 00:25] VITALS: BP 115/65; PULSE 72; RESP 15; O2SAT 98
== END 2020-01-05 00:41 | disposition home or self-care (01) ==
LOC: ED 01-05 00:05
PROVIDERS: Emergency Provider Emergency Medicine; PCP Family Medicine
DX: N93.8 Other specified abnormal uterine and vaginal bleeding (principal); E11.9 Type 2 diabetes mellitus without complications; Q05.9 Spina bifida, unspecified; Z90.49 Acquired absence of other specified parts of digestive tract; Z91.040 Latex allergy status; Z82.49 Family history of ischemic heart disease and other diseases of the circulatory system
CPT/HCPCS: 80048; 85025; 96374; 96375; 99283; J7030; J2405

== ENCOUNTER 2020-01-13 17:15 | Inpatient (IN) | payer MEDICARE, MEDICAID, SELFPAY ==
[2020-01-13 17:16] VITALS: BP 136/94; PULSE 82; RESP 16; TEMP 36.6; O2SAT 97; BMI 43.0
--- NOTE | 2020-01-13 18:08 | CT_ITS ---
CT of the left tibia and fibula with contrast INDICATION: Infection of the lower leg TECHNIQUE: CT of the left lower extremity was performed in the axial plane following contrast administration followed by sagittal and coronal reconstruction. Radiographic technique was optimized to limit patient radiation dose. DLP was 883.37 FINDINGS: The bony structures are well-mineralized. There is no evidence for acute fracture. No lytic destructive changes are seen to suggest presence of acute osteomyelitis. There is nonspecific soft tissue swelling of the lower leg and ankle. There is no evidence for focal abscess. Incidental finding of relatively advanced atrophy of the posterior calf muscles for stated age. CT/Extremity Lower WITH Contrast IMPRESSION: Mild subcutaneous edema or cellulitis of the lower leg and ankle without evidence for focal abscess or acute osteomyelitis Electronically Signed: Will Joe MD at 19:27 EDT , Service support ,
--- NOTE | 2020-01-13 18:25 | ED.VIS.GEN ---
History of Present Illness Chief Complaint: Cellulitis Narrative: Patient presents with left lower extremity pain, she has noticed a rash, she tells me she has a history of leg infections and this feels similar. She denies any fevers but is complaining of chills, this is been ongoing for 2 to 3 days. No known trauma. Past Medical History - Allergies and Home Meds Allergies/Adverse Reactions: Allergies mushroom Allergy (Verified 01/13/20 17:20) Anaphylaxis peanut Allergy (Verified 01/13/20 17:20) Anaphylaxis Gadolinium-MRI Contrast Medium Adverse Reaction (Verified 01/13/20 17:20) Vomiting Latex, Natural Rubber Adverse Reaction (Verified 01/13/20 17:20) Rash Primary Care Physician: Will Shukla MD [Primary Care Provider] - Past Medical History: - - Spina bifida, status post back surgery, she has a chronic suprapubic catheter, she is a diabetic, she has hypertension. Surgical History: cholecystectomy, - - D&C, lumbar back surgery x2, foot surgery x2, abdominal stoma, ventral hernia repair. supraPubic catheter Smoking Status: Never smoker - Family History Paternal Family History: Family History (Last Reviewed 11/13/19 @ 15:[address] Rojas Oates MD) Mother CVA (cerebral vascular accident) Thyroid disorder Diabetes Hypertension Heart disease Hyperlipidemia Myocardial infarction, Onset Age: 54 Father Cancer Grandmother Cancer Family History: Reports: - - Denies known paternal medical history including cardiac history. Sibling Family History: Family History (Last Reviewed 11/13/19 @ 15:[address] Rojas Oates MD) Mother CVA (cerebral vascular accident) Thyroid disorder Diabetes Hypertension Heart disease Hyperlipidemia Myocardial infarction, Onset Age: 54 Father Cancer Grandmother Cancer Family History: Reports: - - Denies known sibling medical history. Maternal Family History: Family History (Last Reviewed 11/13/19 @ 15:[address] Rojas Oates MD) Mother CVA (cerebral vascular accident) Thyroid disorder Diabetes Hypertension Heart disease Hyperlipidemia Myocardial infarction, Onset Age: 54 Father Cancer Grandmother Cancer Family History: Reports: Cancer, Diabetes, Hypertension, Stroke Review of Systems All systems negative except as indicated General: Reports: Chills. Denies: Fever Eyes: Denies: Visual changes - bilaterally Cardiovascular: Denies: Chest pain, Palpitations, Heart racing Respiratory: Denies: Dyspnea, Cough Gastrointestinal: Denies: Abdominal pain, Nausea Genitourinary: Denies: Dysuria Musculoskeletal: Reports: - - Left lower extremity pain Skin: Denies: Rash Neurological: Denies: Headache, Weakness Psych: Denies: Depression Endocrine: Denies: Polyuria Hematologic: Denies: Easy bruising Physical Exam Vital Signs/Narrative: Vital Signs Temp Pulse Resp BP Pulse Ox 01/13/20 17:16 97.8 F 82 16 136/94 H 97 General: Well nourished, - - Patient is relatively comfortable in bed she does not appear toxic she does not appear acutely ill Head: Normocephalic, Atraumatic Eyes: Perrl ENT: Moist mucous membranes Neck: Supple Cardiovascular: Regular rate, Regular rhythm Respiratory: No distress, CTA bilaterally Abdomen: Soft, Nontender, Nondistended Back: Nontender, Normal Inspection. Negative for: CVA tenderness Extremities: - - Left lower extremity significant for edema however it is similar in nature to the right side, she does have however erythema which is not blanching, no significant calor Skin: - - As above Neurological: Alert, Normal Strength, Normal Sensation Psychological: Normal affect Diagnostic/Tx/Re-eval - Medical Decision Making Patient does not have any evidence of deep tissue infection on CT, there is no evidence of necrotizing fasciitis, there seems to be some cellulitis with her history I will admit her apparently she has had deep cellulitis in the past and has had to have IV antibiotics. IV clindamycin was given. ED Disposition - Plan for ED Patient: Disposition: Acute Care Hospital [facility] Diagnosis: Cellulitis Referrals: Will Shukla MD [Primary Care Provider] -
[2020-01-13 18:30] LABS: Absolute Lymphocyte Count 1.72 X10^3/uL (0.83-4.51); Absolute Neutrophil Count 9.4 X10^3/uL (2.0-7.7); Basophil% 0.8 % (0-1); Eosinophil# 0.06 X10^3/uL; Eosinophils% 0.5 % (0-5); Hematocrit 43.1 % (37-47); Hemoglobin 14.3 g/dL (12.0-15.0); Lymphocyte # 1.72 X10^3/ul (4.0); Lymphocyte % 13.1 % (19-41); Mean Corp Hgb Conc 33.2 g/dL (32-36); Mean Corpuscular Hgb 30.4 pg (27.0-32.0); Mean Corpuscular Volume 91.7 fL (81-99); Mean Platelet Vol. 10.7 fl (6.2-12.0); Monocyte# 1.31 X10^3/uL; NRBC Flagged by Analyzer 0 % (0-5); Neutrophil # 9.42 X10^3/uL (2.7-7.7); Neutrophil % 71.6 % (47-70); Platelet Count 234 K/mm3 (150-450); RBC Distribution Width CV 13.2 % (11.6-14.6); RBC Distribution Width SD 44.1 fl (35.1-43.9); White Blood Count 13.1 K/mm3 (4.4-11.0)
[2020-01-13 18:36] LABS: Erythrocyte Sedimentation Rate 44 mm/hr (0-20)
[2020-01-13 18:39] LABS: International Normalized Ratio 0.9; Prothrombin Time (Protime)PT. 12.1 SECONDS (11.7-14.9)
[2020-01-13 18:47] LABS: ALB/GLOB Ratio 0.8 RATIO (0.9-2.4); AST(SGOT) 42 U/L (15-37); Alanine Aminotransfer ALT/SGPT 41 U/L (13-56); Albumin, Serum 3.5 g/dL (3.2-5.0); Alkaline Phosphatase 91 U/L (45-117); Anion Gap 5 (5-15); BUN 15 mg/dL (7-18); BUN/Creat Ratio 16.3 RATIO (10-20); Calcium,Total 8.9 mg/dL (8.5-10.1); Chloride 104 mmol/L (98-107); Creatinine, Serum 0.92 mg/dL (0.55-1.02); EST Glomerular Filtration Rate 73 mL/min (>60); Est Glom Filt Rate - Afr Amer 88 mL/min (>60); Estimated Creatinine Clearance 65.57 ml/min; Globulin 4.6 g/dL (2.2-4.2); Glucose 325 mg/dL (74-106); Potassium 4.4 mmol/L (3.5-5.1); Protein, Total 8.1 g/dL (6.4-8.2); Sodium Level 135 mmol/L (136-145)
--- NOTE | 2020-01-13 18:59 | US_ITS ---
STUDY: VENOUS DOPPLER ULTRASOUND - LEFT LOWER EXTREMITY REASON FOR EXAM: Female, 39 years old. LT LEG PAIN AND INCREASED SWELLING TECHNIQUE: Ultrasound evaluation of the deep vein system to include negrete-scale imaging and compression was performed. Negrete-scale imaging and Doppler sonographic evaluation, including duplex spectral analysis and qualitative color flow sonography, was performed. COMPARISON: None. FINDINGS: Common Femoral Vein: Normal compression, spontaneity and augmentation. Normal color Doppler. Common Femoral Vein/Greater Saphenous Junction: Normal compression, spontaneity and augmentation. Normal color Doppler. Deep Femoral Vein: Normal compression, spontaneity and augmentation. Normal color Doppler. Femoral Proximal: Normal compression, spontaneity and augmentation. Normal color Doppler. Femoral Middle: Normal compression, spontaneity and augmentation. Normal color Doppler. Femoral Distal: Normal compression, spontaneity and augmentation. Normal color Doppler. Popliteal Vein: Normal compression, spontaneity and augmentation. Normal color Doppler. Posterior Tibial Vein: Normal compression, spontaneity and augmentation. Normal color Doppler. Peroneal Vein: Normal compression, spontaneity and augmentation. Normal color Doppler. US/Venous Duplex Imag/Limited/Uni IMPRESSION: Normal venous Doppler ultrasound of the lower extremity. Electronically Signed: Will Joe MD at 19:21 EDT , Service support ,
[2020-01-13] MEDS: Morphine 4 MG/ML Syringe IV (19:17)
[2020-01-13] MEDS: Ondansetron 4 MG/2 ML Vial IV (19:17)
[2020-01-13 20:25] VITALS: BP 121/79; PULSE 78; RESP 18; TEMP 36.6; O2SAT 96
[2020-01-13 21:08] VITALS: BP 120/83; PULSE 70; RESP 17; TEMP 37.1; O2SAT 98
[2020-01-13 21:13] VITALS: BMI 41.8
[2020-01-13 21:23] VITALS: BMI 41.9
[2020-01-13] MEDS: traZODone 50 MG Tablet PO (21:59)
[2020-01-13] MEDS: Atorvastatin Calcium 20 MG Tablet PO (21:59)
[2020-01-13] MEDS: oxyCODONE 5 MG Tablet 10 MG PO (21:59)
[2020-01-13] MEDS: Insulin Lispro 100 UNIT/ML INSULN.PEN SC (22:00)
[2020-01-13 22:15] LABS: Bedside Glucose 245 mg/dL (70-110)
[2020-01-13] MEDS: CLARIFY ORDER 1 EACH NOTE (22:29)
--- NOTE | 2020-01-13 23:27 | HP.PCM_ITS ---
Problem List (1) Cellulitis Status: Acute (2) PSVT (paroxysmal supraventricular tachycardia) Status: Chronic (3) Hyperlipidemia Status: Chronic (4) Essential hypertension Status: Chronic (5) Non-compliance Status: Chronic (6) Normochromic normocytic anemia Status: Chronic Comment: HGB normal in Apr 2018 (7) Type 2 diabetes mellitus with diabetic polyneuropathy Status: Chronic (8) Lower extremity edema Status: Chronic (9) Spina bifida aperta of lumbar spine Status: Chronic Comment: s/p surgery x 2 weakness and numbness in legs neurogenic bladder and frequent UTIs (10) Morbid obesity with BMI of 40.0-44.9, adult Status: Chronic History of Present Illness Date of Admission: 01/13/20 Chief Complaint: left leg redness The patient is a 39 year old F with a significant history of type 2 diabetes; spina bifida with complicated neurogenic bladder status post suprapubic catheter who presented to the emergency department with redness of her left leg that started the same day of presentation. A day before presentation patient noticed pain in her left leg and the next day she noticed redness of same extremity as stated above. Also she reports increased warmth in her left lower extremity. Further she has swelling in her left lower extremity. She reports chills without fever. Past Medical History Past Medical History (Chronic Problems): Chronic Problems (Last Reviewed 01/13/20 @ 23:[address] Gen Butt MD) PSVT (paroxysmal supraventricular tachycardia) (Chronic) Hyperlipidemia (Chronic) Essential hypertension (Chronic) Non-compliance (Chronic) Normochromic normocytic anemia (Chronic) HGB normal in Apr 2018 Type 2 diabetes mellitus with diabetic polyneuropathy (Chronic) Lower extremity edema (Chronic) Spina bifida aperta of lumbar spine (Chronic) s/p surgery x 2 weakness and numbness in legs neurogenic bladder and frequent UTIs Morbid obesity with BMI of 40.0-44.9, adult (Chronic) Medical History: Medical History (Last Reviewed 01/14/20 @ 00:[address] Gen Butt MD) PSVT (paroxysmal supraventricular tachycardia) (Chronic) I47.1 Hyperlipidemia (Chronic) E78.5 Essential hypertension (Chronic) I10 Non-compliance (Chronic) Z91.19 Normochromic normocytic anemia (Chronic) D64.9 HGB normal in Apr 2018 Type 2 diabetes mellitus with diabetic polyneuropathy (Chronic) E11.42 Lower extremity edema (Chronic) R60.0 Spina bifida aperta of lumbar spine (Chronic) Q05.7 s/p surgery x 2 weakness and numbness in legs neurogenic bladder and frequent UTIs Morbid obesity with BMI of 40.0-44.9, adult (Chronic) E66.01, Z68.41 Anxiety and depression F41.9, F32.9 Arthritis M19.90 Chronic back pain M54.9, G89.29 Chronic nausea R11.0 Constipation K59.00 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 Will follow, no need yet for cysto retros etc. 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 Neurogenic bladder N31.9 Neurogenic bowel K59.2 Panic attacks F41.0 Thyroid cyst E04.1 UTI (urinary tract infection) N39.0 Uninodular goiter E04.1 Cellulitis of left lower extremity L03.116 Diabetic ulcer of left heel with fat layer exposed E11.621, L97.422 Infection of bladder catheter T83.510A Sepsis A41.9 UTI (urinary tract infection) (Resolved) N39.0 Ulcer of left heel and midfoot with fat layer exposed L97.422 Allergies mushroom Allergy (Verified 01/13/20 17:20) Anaphylaxis peanut Allergy (Verified 01/13/20 17:20) Anaphylaxis Gadolinium-MRI Contrast Medium Adverse Reaction (Verified 01/13/20 17:20) Vomiting Latex, Natural Rubber Adverse Reaction (Verified 01/13/20 17:20) Rash Home Medications: Ambulatory Orders Medication Instructions Recorded Furosemide [Lasix] 20 mg PO DAILY@1700 08/28/18 Furosemide [Lasix] 40 mg PO BREAKFAST 04/05/19 traZODone [Desyrel] 50 mg PO QHS 07/08/19 insulin glargine 100 unit/mL (3 15 unit SC QHS 11/01/19 mL) subcutaneous pen lisinopril 2.5 mg tablet 2.5 mg PO DAILY 11/01/19 atorvastatin 20 mg tablet 20 mg PO QHS 11/12/19 oxybutynin chloride 15 mg 15 mg PO DAILY 11/12/19 tablet,extended release 24 hr Naproxen [Naprosyn] 500 mg PO BID PRN PRN 01/13/20 Propranolol HCl 10 mg PO BID 01/13/20 Surgical History: Surgical History (Last Reviewed 01/14/20 @ 00:[address] Gen Butt MD) history insertion suprapubic catheter History of cholecystectomy Z90.49 History of dilation and curettage Z98.890 History of spinal surgery Z98.890 x 2 Hx of foot surgery Z98.890 Hx of ventral hernia repair Z98.890, Z87.19 S/P thyroid biopsy Onset Date: ~11/06/19 Z98.890 Status post gastric surgery Z98.890 Surgical History: cholecystectomy, - - D&C, lumbar back surgery x2, foot surgery x2, abdominal stoma, ventral hernia repair. supraPubic catheter Psychiatric History: Anxiety, Depression SURFACE PLATE INSPECTOR History: No pertinent SURFACE PLATE INSPECTOR history Smoking Status: Never smoker Tobacco Use: Non-smoker - *Family History Maternal Family History: Family History (Last Reviewed 01/14/20 @ 00:[address] Gen Butt MD) Mother CVA (cerebral vascular accident) Thyroid disorder Diabetes Hypertension Heart disease Hyperlipidemia Myocardial infarction, Onset Age: 54 Father Cancer Grandmother Cancer History Items: Cancer, Diabetes, Hypertension, Stroke Paternal Family History: Family History (Last Reviewed 01/14/20 @ 00:[address] Gen Butt MD) Mother CVA (cerebral vascular accident) Thyroid disorder Diabetes Hypertension Heart disease Hyperlipidemia Myocardial infarction, Onset Age: 54 Father Cancer Grandmother Cancer History Items: - - Denies known paternal medical history including cardiac hi story. Sibling Family History: Family History (Last Reviewed 01/14/20 @ 00:[address] Gen Butt MD) Mother CVA (cerebral vascular accident) Thyroid disorder Diabetes Hypertension Heart disease Hyperlipidemia Myocardial infarction, Onset Age: 54 Father Cancer Grandmother Cancer History Items: - - Denies known sibling medical history. Review of Systems Constitutional: Reports: Chills. Denies: Fever, Weight Change HEENT: Denies: Head Aches, Sinus Congestion, Sinus Drainage Cardiovascular: Denies: Chest Pain, Palpitations Respiratory: Denies: Cough, Shortness of breath at rest, Sputum production Gastrointestinal: Denies: Abdominal Pain, Nausea, Vomiting Genitourinary: Denies: Dysuria Musculoskeletal: Reports: Leg Pain - Left leg. Denies: Joint Pain, Joint Tenderness Skin: Reports: Skin Changes - Erythema of left leg, Wounds - Plantar side of big toe of left foot Neurological: Denies: Numbness, Tingling, Focal weakness Psychiatric: Denies: Anxiety, Depression, Homicidal Ideations, Suicidal Ideations Hematologic/ Lymphatic: Denies: Easy Bruising, Easy Bleeding VTE Information - Inpt Only VTE Present on Admission: No VTE Mechan Device Prophylaxis: None VTE Pharm Prophylaxis ordered?: Yes Patient Problems: Active and Suspected Problems (Last Reviewed 01/13/20 @ 23:[address] Gen Butt MD) Cellulitis (Acute) - Physical Exam Vitals/I&O's: Vital Signs Temp Pulse Resp BP Pulse Ox 97.8 F 78 18 121/79 H 96 01/13/20 20:25 01/13/20 20:25 01/13/20 20:25 01/13/20 20:25 01/13/20 20:25 Oxygen Delivery Method Room Air Weight: 103.918 kg Body Mass Index (BMI) 41.8 Finger Stick Blood Glucose 297 Intake and Output for Last 24 Hours 01/11/20 01/12/20 01/13/20 23:59 23:59 23:59 Intake Total 500 / 500 Balance 500 / 500 General: Alert, Oriented x3, Cooperative HEENT: Atraumatic, PERRLA, EOMI, Normocephalic Neck: Supple, No JVD, Negative Carotid Bruits Lungs: Clear to auscultation, Normal air movement, No rhonchi, No wheeze, No rales Cardiovascular: Regular rate, Regular Rhythm, Normal S1, Normal S2, No murmurs Abdomen: Bowel Sounds Present, Soft, Non Tender, - - Suprapubic catheter in place Extremities: Edema - Left leg, Tenderness - Left leg, - Skin: - - Erythema of left leg; ulcer of plantar side of big toe of left leg. Musculoskeletal: Tenderness - Left leg Neurological: Cranial nerves II-XII grossly intact Psych/Mental Status: Normal Affect, Appropriate Laboratory Results 01/13/20 18:15: WBC 13.1 H, RBC 4.70, Hgb 14.3, Hct 43.1, MCV 91.7, MCH 30.4, MCHC 33.2, RDW Std Deviation 44.1 H, RDW Coeff of Claude 13.2, Plt Count 234, MPV 10.7, Immature Gran % (Auto) 4.000 H, Neut % (Auto) 71.6 H, Lymph % (Auto) 13.1 L, Dare % (Auto) 10.0, Eos % (Auto) 0.5, Baso % (Auto) 0.8, Absolute Neuts (auto) 9.4 H, Absolute Lymphs (auto) 1.72, Nucleated RBC % 0, ESR 44 H 01/13/20 18:15: Sodium 135 L, Potassium 4.4, Chloride 104, Carbon Dioxide 26.0, Anion Gap 5, BUN 15, Creatinine 0.92, Estim Creat Clear Calc 65.57, Est GFR (MDRD) Af Amer 88, Est GFR (MDRD) Non-Af 73, BUN/Creatinine Ratio 16.3, Glucose 325 H, Calcium 8.9, Total Bilirubin 0.40, AST 42 H, ALT 41, Alkaline Phosphatase 91, C-React Prot Ext Range 105.00 H, Total Protein 8.1, Albumin 3.5, Globulin 4 .6 H, Albumin/Globulin Ratio 0.8 L 01/13/20 18:15: PT 12.1, INR 0.9 01/13/20 21:58: POC Glucose 245 H Current Medications Acetaminophen (Tylenol) 650 mg PO Q6H PRN PRN PRN Reason: Pain Score 1-10/Temp > 100.7 F Atorvastatin Calcium (Lipitor) 20 mg PO QHS [facility] Last Admin: 01/13/20 21:59 Dose: 20 mg Documented by: Dextrose (D50w Syringe) 0 gm IV X1 PRN; Protocol PRN Reason: Hypoglycemia Enoxaparin Sodium (Lovenox) 40 mg SC BID [facility] Last Admin: 01/13/20 22:00 Dose: Not Given Documented by: Glucagon () 1 mg IM .X1 PRN PRN Reason: Hypoglycemia Cefazolin Sodium () 1 gm in 50 mls @ 100 mls/hr IV Q8 [facility] Clindamycin Phosphate 900 mg/ (Dextrose) 106 mls @ 150 mls/hr IV Q8 [facility] Sodium Chloride () 250 mls @ 15 mls/hr IV .[id number] PRN PRN Reason: Saline Flush Insulin Glargine (Lantus (Bk)) 15 units SC QHS [facility] Last Admin: 01/13/20 21:59 Dose: 15 u Documented by: Insulin Human Lispro (Humalog Kwikpen (Bkc)) 0 unit SC ACHS [facility]; Protocol Last Admin: 01/13/20 22:00 Dose: 4 u Documented by: Lisinopril (Zestril) 2.5 mg PO DAILY [facility] Melatonin (Melatonin) 3 mg PO QHS PRN PRN PRN Reason: INSOMNIA Ondansetron HCl (Zofran) 4 mg IV Q8H PRN PRN PRN Reason: NAUSEA/VOMITING Oxycodone HCl (Oxyir) 5 mg PO Q4H PRN PRN PRN Reason: Pain Score 4-5/10 Oxycodone HCl (Oxyir) 10 mg PO Q4H PRN PRN PRN Reason: Pain Score 6-10/10 Last Admin: 01/13/20 21:59 Dose: 10 mg Documented by: Sodium Chloride () 10 - 40 ml IV UD PRN PRN Reason: SALINE FLUSH Tolterodine Tartrate (Detrol La) 4 mg PO DAILY [facility] Trazodone HCl (Desyrel) 50 mg PO QHS [facility] Last Admin: 01/13/20 21:59 Dose: 50 mg Documented by: Assessment/Plan All Active Problems (Last Reviewed 01/13/20 @ 23:[address] Gen Butt MD) Cellulitis (Acute) UTI (urinary tract infection) (Resolved) The patient is a 39 year old F with a significant history of type 2 diabetes; spina bifida with complicated neurogenic bladder status post suprapubic catheter who presented to the emergency department with redness of her left leg; swelling, pain; and increased warmth in the left lower extremity. Cellulitis of left lower leg Nidus of infection is likely from ulcer at this plantar side of big toe of left foot. Received clindamycin at the emergency department; continued Ancef ordered. Elevate left lower extremity Trend CBC and BMP Diabetes mellitus Patient with hyperglycemia on presentation Home basal insulin continued Accu-Chek with correction scale insulin ordered. Ulcer plantar side of big toe of left foot. Adaptic dressing ordered. Migraines and dysrhythmia Propranolol continue. Depression Trazodone continued Bilateral lower leg edema: Lasix continued Morbid obesity: BMI of 41.9. Complicates care. Recommend lifestyle modification. DVT Prophylaxis: Subcutaneous Lovenox Inpatient E&M: 38366 Init Hosp L3
[2020-01-14] MEDS: Cefazolin 2 GM in 0.9% Normal Saline 100 ML IV ×2 (00:11→06:39)
[2020-01-14 02:48] VITALS: BP 109/67; PULSE 72; RESP 16; TEMP 36.6; O2SAT 97
[2020-01-14 05:52] LABS: Absolute Lymphocyte Count 1.79 X10^3/uL (0.83-4.51); Absolute Neutrophil Count 6.1 X10^3/uL (2.0-7.7); Basophil# 0.09 X10^3/uL; Basophil% 0.9 % (0-1); Eosinophil# 0.19 X10^3/uL; Eosinophils% 1.9 % (0-5); Hematocrit 38.4 % (37-47); Hemoglobin 12.6 g/dL (12.0-15.0); Lymphocyte # 1.79 X10^3/ul (4.0); Lymphocyte % 17.7 % (19-41); Mean Corp Hgb Conc 32.8 g/dL (32-36); Mean Corpuscular Hgb 30.6 pg (27.0-32.0); Mean Corpuscular Volume 93.2 fL (81-99); Mean Platelet Vol. 10.8 fl (6.2-12.0); Monocyte# 1.43 X10^3/uL; Monocyte% 14.1 % (0-10); NRBC Flagged by Analyzer 0 % (0-5); Neutrophil # 6.14 X10^3/uL (2.7-7.7); Neutrophil % 60.8 % (47-70); Platelet Count 199 K/mm3 (150-450); RBC Distribution Width CV 13.5 % (11.6-14.6); RBC Distribution Width SD 45.8 fl (35.1-43.9); Red Blood Count 4.12 M/mm3 (4.2-5.4); White Blood Count 10.1 K/mm3 (4.4-11.0)
[2020-01-14 06:08] LABS: Anion Gap 4 (5-15); BUN 15 mg/dL (7-18); BUN/Creat Ratio 20.8 RATIO (10-20); Calcium,Total 8.3 mg/dL (8.5-10.1); Chloride 103 mmol/L (98-107); Creatinine, Serum 0.72 mg/dL (0.55-1.02); EST Glomerular Filtration Rate 96 mL/min (>60); Est Glom Filt Rate - Afr Amer 116 mL/min (>60); Estimated Creatinine Clearance 83.79 ml/min; Glucose 270 mg/dL (74-106); Potassium 4.3 mmol/L (3.5-5.1); Sodium Level 134 mmol/L (136-145)
[2020-01-14] MEDS: Insulin Lispro 100 UNIT/ML INSULN.PEN SC ×4 (06:42→23:08)
[2020-01-14 06:50] LABS: Bedside Glucose 264 mg/dL (70-110)
[2020-01-14 07:10] VITALS: O2SAT 93
--- NOTE | 2020-01-14 09:08 | NURSING ---
wound photo: left great toe
--- NOTE | 2020-01-14 09:09 | NURSING ---
wound photo: left heel
--- NOTE | 2020-01-14 09:09 | NURSING ---
skin photo: left lower leg
[2020-01-14] MEDS: Propranolol 10 MG Tablet PO ×2 (09:14→23:01)
[2020-01-14] MEDS: Lisinopril 2.5 MG Tablet PO (09:14)
[2020-01-14] MEDS: Tolterodine Tartrate 4 MG CAP.SA PO (09:14)
[2020-01-14] MEDS: Furosemide 40 MG Tablet PO (09:15)
[2020-01-14] MEDS: oxyCODONE 5 MG Tablet 10 MG PO ×3 (09:16→23:05)
[2020-01-14 09:26] VITALS: BP 91/64; PULSE 63; RESP 16; TEMP 36.6; O2SAT 98
[2020-01-14 11:36] LABS: Bedside Glucose 248 mg/dL (70-110)
--- NOTE | 2020-01-14 12:00 | CASEMGMT ---
RN CM Face to Face with patient for initial transition planning/care coordination assessment. RN CM introduced self and role at [facility]. Patient lying in bed, alert and oriented, at bedside. Patient willing to participate in assessment and is able to answer all questions appropriately. Care providers, pharmacy, and demographics verified. Patient wishes to discharge home, denies need for home health at this time. Patient states she has no further needs or concerns at this time. CM to follow for discharge planning needs that may arise. PCP: Vazquez Specialists: Marcel Urologist; polly duct cleaner Preferred Pharmacy: [facility] Prescription Benefit: yes Living Will/HPOA: none LNOK: , MIL Living Arrangements: Patient lives with in a 2 story home with bed and bath on main level of home. no steps to enter the home. Transportation: DME/HHC: Patient states she has shower chair, cane, walker, rollator, and wheelchair at home. Patient denies need for HHC. Disposition Plan: Patient to discharge home with family support and follow-up plans in place. Kati SANDERS, RN, CM
--- NOTE | 2020-01-14 12:13 | MRI_ITS ---
STUDY: MRI LEFT FOREFOOT WITHOUT CONTRAST REASON FOR EXAM: Female, 39 years old. LEFT plantar great toe wound. History of prior left foot surgery d/t infection TECHNIQUE: Standardized fat and water weighted pulse sequences were obtained in all 3 orthogonal planes. COMPARISON: 01/10/2019 FINDINGS: Normal metatarsophalangeal joint of the hallux. Normal tibial and fibular sesamoids, with normal sesamoids-first metatarsal articulations. Normal interphalangeal joint of the hallux. Normal proximal and distal phalanges of the great toe. Normal medial and lateral heads of the flexor hallucis brevis tendons. Normal flexor and extensor hallucis longus tendons. Normal second through fifth metatarsophalangeal (MTP) joints. Normal interphalangeal joints of the second through fifth toes. Normal proximal, middle and distal phalanges of the second through fifth toes. Normal first through fourth intermetatarsal spaces. Normal flexor and extensor tendons of the second through fifth toes. Status post resection of the distal aspect of the fifth metatarsal bone. There is diffuse atrophy of the intrinsic muscles of the forefoot consisten twith a peripheral neuropathy. Focal skin thickening of the plantar aspect of the foot plantar to the first metatarsophalangeal joint but no surrounding edema to suggest cellulitis no loculated fluid collection to suggest abscess. No MR evidence of osteomyelitis. MRI/Lower Ext/No Jt/w/o IMPRESSION: No MR evidence of abscess or osteomyelitis. Electronically Signed: Severino Rand MD at 16:35 EDT Tel , Service support ,
--- NOTE | 2020-01-14 14:55 | PCM.PN.HOSP ---
Patient Problems: Active and Suspected Problems (Last Reviewed 01/14/20 @ 00:[address] Gen Butt MD) Cellulitis (Acute) Reason for Visit: cellulitis Subjective: still with redness of left leg despite antibiotics. Vitals/I&O's: Vital Signs Temp Pulse Resp BP Pulse Ox 36.6 C 63 16 91/64 98 01/14/20 09:26 01/14/20 09:26 01/14/20 09:26 01/14/20 09:26 01/14/20 09:26 Oxygen Delivery Method Room Air Weight: 103.9 kg Body Mass Index (BMI) 41.8 Finger Stick Blood Glucose 297 Intake and Output for Last 24 Hours 01/12/20 01/13/20 01/14/20 23:59 23:59 23:59 Intake Total 606 / 606 1816 / 1816 Output Total 1550 / 1550 Balance 606 / 606 266 / 266 General: Alert, No apparent distress HEENT: Atraumatic, Normocephalic Oral: Moist Mucosa, No Gingival or Mucosal Lesions/ Ulcerations Extremities: No edema, No Calf Tenderness Skin: - - macular petechial rash on LLE. superficial ulceration on plantar aspect of left great toe. Psych/Mental Status: Normal Affect, Appropriate Laboratory Results 01/13/20 18:15: WBC 13.1 H, RBC 4.70, Hgb 14.3, Hct 43.1, MCV 91.7, MCH 30.4, MCHC 33.2, RDW Std Deviation 44.1 H, RDW Coeff of Claude 13.2, Plt Count 234, MPV 10.7, Immature Gran % (Auto) 4.000 H, Neut % (Auto) 71.6 H, Lymph % (Auto) 13.1 L, Coffey % (Auto) 10.0, Eos % (Auto) 0.5, Baso % (Auto) 0.8, Absolute Neuts (auto) 9.4 H, Absolute Lymphs (auto) 1.72, Nucleated RBC % 0, ESR 44 H 01/13/20 18:15: Sodium 135 L, Potassium 4.4, Chloride 104, Carbon Dioxide 26.0, Anion Gap 5, BUN 15, Creatinine 0.92, Estim Creat Clear Calc 65.57, Est GFR (MDRD) Af Amer 88, Est GFR (MDRD) Non-Af 73, BUN/Creatinine Ratio 16.3, Glucose 325 H, Calcium 8.9, Total Bilirubin 0.40, AST 42 H, ALT 41, Alkaline Phosphatase 91, C-React Prot Ext Range 105.00 H, Total Protein 8.1, Albumin 3.5, Globulin 4.6 H, Albumin/Globulin Ratio 0.8 L 01/13/20 18:15: PT 12.1, INR 0.9 01/13/20 21:58: POC Glucose 245 H 01/14/20 05:25: WBC 10.1, RBC 4.12 L, Hgb 12.6, Hct 38.4, MCV 93.2, MCH 30.6, MCHC 32.8, RDW Std Deviation 45.8 H, RDW Coeff of Claude 13.5, Plt Count 199, MPV 10.8, Immature Gran % (Auto) 4.600 H, Neut % (Auto) 60.8, Lymph % (Auto) 17.7 L, Coffey % (Auto) 14.1 H, Eos % (Auto) 1.9, Baso % (Auto) 0.9, Absolute Neuts (auto) 6.1, Absolute Lymphs (auto) 1.79, Nucleated RBC % 0 01/14/20 05:25: Sodium 134 L, Potassium 4.3, Chloride 103, Carbon Dioxide 27.0, Anion Gap 4 L, BUN 15, Creatinine 0.72, Estim Creat Clear Calc 83.79, Est GFR (MDRD) Af Amer 116, Est GFR (MDRD) Non-Af 96, BUN/Creatinine Ratio 20.8 H, Glucose 270 H, Calcium 8.3 L 01/14/20 06:40: POC Glucose 264 H 01/14/20 11:19: POC Glucose 248 H Current Medications Acetaminophen (Tylenol) 650 mg PO Q6H PRN PRN PRN Reason: Pain Score 1-10/Temp > 100.7 F Atorvastatin Calcium (Lipitor) 20 mg PO QHS [facility] Last Admin: 01/13/20 21:59 Dose: 20 mg Documented by: Dextrose (D50w Syringe) 0 gm IV X1 PRN; Protocol PRN Reason: Hypoglycemia Enoxaparin Sodium (Lovenox) 40 mg SC BID [facility] Last Admin: 01/14/20 09:19 Dose: Not Given Documented by: Furosemide (Lasix) 20 mg PO DAILY@1700 [facility] Furosemide (Lasix) 40 mg PO BREAKFAST [facility] Last Admin: 01/14/20 09:15 Dose: 40 mg Documented by: Glucagon () 1 mg IM .X1 PRN PRN Reason: Hypoglycemia Sodium Chloride () 250 mls @ 15 mls/hr IV .[id number] PRN PRN Reason: Saline Flush Vancomycin IV Pharmacy to Dose (1 ea/ Sodium Chloride) 500 mls @ 250 mls/hr IV X1 PRN; Protocol PRN Reason: Rx to Dose Vancomycin HCl 2,000 mg/ (Sodium Chloride) 540 mls @ 250 mls/hr IV X1 ONE Stop: 01/14/20 15:39 Insulin Glargine (Lantus ([facility])) 15 units SC QHS [facility] Last Admin: 01/13/20 21:59 Dose: 15 u Documented by: Insulin Human Lispro (Humalog Kwikpen ([facility])) 0 unit SC ACHS [facility]; Protocol Last Admin: 01/14/20 11:20 Dose: 4 u Documented by: Lisinopril (Zestril) 2.5 mg PO DAILY [facility] Last Admin: 01/14/20 09:14 Dose: 2.5 mg Documented by: Melatonin (Melatonin) 3 mg PO QHS PRN PRN PRN Reason: INSOMNIA Ondansetron HCl (Zofran) 4 mg IV Q8H PRN PRN PRN Reason: NAUSEA/VOMITING Oxycodone HCl (Oxyir) 5 mg PO Q4H PRN PRN PRN Reason: Pain Score 4-5/10 Oxycodone HCl (Oxyir) 10 mg PO Q4H PRN PRN PRN Reason: Pain Score 6-10/10 Last Admin: 01/14/20 09:16 Dose: 10 mg Documented by: Propranolol HCl (Inderal) 10 mg PO BID [facility] Last Admin: 01/14/20 09:14 Dose: 10 mg Documented by: Sodium Chloride () 10 - 40 ml IV UD PRN PRN Reason: SALINE FLUSH Tolterodine Tartrate (Detrol La) 4 mg PO DAILY [facility] Last Admin: 01/14/20 09:14 Dose: 4 mg Documented by: Trazodone HCl (Desyrel) 50 mg PO QHS [facility] Last Admin: 08/17/20 21:59 Dose: 50 mg Documented by: Medical Necessity - Tobacco Use Smoking Status: Never smoker Tobacco Use: Non-smoker Assessment/Plan All Active Problems (Last Reviewed 01/14/20 @ 00:[address] Gen Butt MD) Cellulitis (Acute) UTI (urinary tract infection) (Resolved) 1. LLE cellulitis subjectively, no change change cefazolin, clinda and start vancomycin check MRI of left foot to eval for OM 2. DM2 uncontrolled continue basal and SSI 3. VTE prophylaxis with LMWH Inpatient E&M: 82347 Subs Hosp L2
[2020-01-14 16:04] LABS: Hemoglobin A1c 11.4 % (3.8-5.6)
[2020-01-14] MEDS: Furosemide 20 MG Tablet PO (16:47)
[2020-01-14 16:55] LABS: Bedside Glucose 304 mg/dL (70-110)
[2020-01-14 16:56] VITALS: BP 89/64; PULSE 65; RESP 20; TEMP 36.7; O2SAT 98
--- NOTE | 2020-01-14 17:14 | PCM.RX.CS ---
Consult Pharmacy has been consulted to manage selected antiobiotic: Vancomycin Type of Consult: New start Suspected Infection: Skin/Soft tissue Labs: Sodium 134 mmol/L (136-145) L 01/14/20 05:25 Potassium 4.3 mmol/L (3.5-5.1) 01/14/20 05:25 Chloride 103 mmol/L (98-107) 01/14/20 05:25 Carbon Dioxide 27.0 mmol/L (21.0-32.0) 01/14/20 05:25 Anion Gap 4 (5-15) L 01/14/20 05:25 BUN 15 mg/dL (7-18) 01/14/20 05:25 Creatinine 0.72 mg/dL (0.55-1.02) 01/14/20 05:25 Est GFR (MDRD) Af Amer 116 mL/min (>60) 01/14/20 05:25 Est GFR (MDRD) Non-Af 96 mL/min (>60) 01/14/20 05:25 BUN/Creatinine Ratio 20.8 RATIO (10-20) H 01/14/20 05:25 Glucose 270 mg/dL (74-106) H 01/14/20 05:25 Weight used for dosin kg Estimated Creatinine Clearance: 84ML/MIN Goal Trough: 15-20 mcg/mL Pharmacy Plan for Drug Dosing: Give initial loading dose of 2000mg IV x1, then continue with 1250mg IV q12h (dose based on previous dosing for patient in 11/2018 which resulted in a trough of 17.2). Will check a trough level before the 4th total dose. Pharmacy Service will continue to monitor and adjust dosing as required. Follow-Up Labs: Trough Vancomycin Labs to be done on [date and time ordered]: 01/16/20 04:30
[2020-01-14 19:34] VITALS: BP 103/58; PULSE 71; RESP 16; TEMP 36.7; O2SAT 98
[2020-01-14] MEDS: Acetaminophen 325 MG Tablet 650 MG PO (19:43)
[2020-01-14 23:00] VITALS: BP 108/89; PULSE 77; RESP 16; TEMP 36.8; O2SAT 95
[2020-01-14] MEDS: traZODone 50 MG Tablet PO (23:01)
[2020-01-14] MEDS: Atorvastatin Calcium 20 MG Tablet PO (23:01)
[2020-01-15 01:16] LABS: Bedside Glucose 326 mg/dL (70-110)
[2020-01-15 04:48] VITALS: BP 104/51; PULSE 57; RESP 14; TEMP 36.8; O2SAT 95
[2020-01-15] MEDS: Insulin Lispro 100 UNIT/ML INSULN.PEN SC (06:44)
[2020-01-15 06:51] LABS: Bedside Glucose 244 mg/dL (70-110)
[2020-01-15 08:02] VITALS: BP 99/65; PULSE 56; RESP 18; TEMP 36.8; O2SAT 96
[2020-01-15] MEDS: Acetaminophen 325 MG Tablet 650 MG PO (08:24)
[2020-01-15] MEDS: Lisinopril 2.5 MG Tablet PO (10:20)
[2020-01-15] MEDS: Enoxaparin 40 MG/0.4 ML Syringe SC (10:20)
[2020-01-15] MEDS: Furosemide 40 MG Tablet PO (10:20)
[2020-01-15] MEDS: Propranolol 10 MG Tablet PO (10:21)
[2020-01-15] MEDS: Tolterodine Tartrate 4 MG CAP.SA PO (10:21)
[2020-01-15] MEDS: oxyCODONE 5 MG Tablet PO (10:23)
--- NOTE | 2020-01-15 11:02 | DCINST_ITS ---
- Discharge Diagnoses Current Active Problems: Current Active and Chronic Problems (Last Reviewed 01/14/20 @ 00:[address] Gen Butt MD) Cellulitis (Acute) You will use the following diet at home:: Calorie/Carbohydrate Controlled (specify 1200, 1400, etc) - 1800 Your food should be the consistency of: Regular Your liquids should be the consistency of: Regular/Thin Discharge Activity: Return to Normal Activity Keep extremity elevated above heart level: Left Leg Call your doctor if your incision/area has: Increased Pain/ Swelling, Increased Redness Call your doctor if you observe: Fever of 101 or Higher Cleanse incision/area with: Soap & Water Allergies/Adverse Reactions: Allergies mushroom Allergy (Verified 01/13/20 17:20) Anaphylaxis peanut Allergy (Verified 01/13/20 17:20) Anaphylaxis Gadolinium-MRI Contrast Medium Adverse Reaction (Verified 01/13/20 17:20) Vomiting Latex, Natural Rubber Adverse Reaction (Verified 01/13/20 17:20) Rash Medications to take at Discharge Furosemide [Lasix] 20 mg PO DAILY@1700 08/28/18 Furosemide [Lasix] 40 mg PO BREAKFAST 04/05/19 traZODone [Desyrel] 50 mg PO QHS 07/08/19 insulin glargine 100 unit/mL (3 mL) subcutaneous pen 15 unit SC QHS 11/01/19 lisinopril 2.5 mg tablet 2.5 mg PO DAILY 11/01/19 atorvastatin 20 mg tablet 20 mg PO QHS 11/12/19 oxybutynin chloride 15 mg tablet,extended release 24 hr 15 mg PO DAILY 11/12/19 Naproxen [Naprosyn] 500 mg PO BID PRN PRN 01/13/20 Propranolol HCl 10 mg PO BID 01/13/20 Acetaminophen [Tylenol Tablet] 1,000 mg PO TID tablet 01/15/20 Oxycodone [Oxyir] 5 mg PO Q6H PRN 3 Days #12 tablet 01/15/20 Sulfamethoxazole/Trimethoprim [Bactrim Ds Tablet] 1 ea PO BID #12 tab 01/15/20 The following prescriptions were given: Sulfamethoxazole/Trimethoprim [Bactrim Ds Tablet] 1 ea PO BID #12 tab Transmission Status: Pending to [facility] Oxycodone [Oxyir] 5 mg PO Q6H PRN 3 Days #12 tablet PRN Reason: Pain Score 6-10/10 Transmission Status: Sent to [facility] Primary Care Physician: Will Shukla MD [Primary Care Provider] - Within 1 Week Test Results: Test results from this visit will be discussed in further detail at your follow- up appointment, if applicable. Please Follow Up With: Adi Monson MD When: 01/20/2020, already scheduled Proposed Discharge Date: 01/15/20
--- NOTE | 2020-01-15 11:04 | DS.PCM_ITS ---
Discharge Date and Diagnosis - Problem List Patient Problems: Active and Suspected Problems (Last Reviewed 01/14/20 @ 00:[address] Gen Butt MD) Cellulitis (Acute) Date of Admission: 01/13/20 Date of Discharge: 01/15/20 - Primary Discharge Diagnosis Acute Problems: Active Problems (Last Reviewed 01/14/20 @ 00:[address] Gen Butt MD) Cellulitis (Acute) - Secondary Discharge Diagnosis Chronic Problems: Chronic Problems (Last Reviewed 01/14/20 @ 00:[address] Gen Butt MD) PSVT (paroxysmal supraventricular tachycardia) (Chronic) Hyperlipidemia (Chronic) Essential hypertension (Chronic) Non-compliance (Chronic) Normochromic normocytic anemia (Chronic) HGB normal in Apr 2018 Type 2 diabetes mellitus with diabetic polyneuropathy (Chronic) Lower extremity edema (Chronic) Spina bifida aperta of lumbar spine (Chronic) s/p surgery x 2 weakness and numbness in legs neurogenic bladder and frequent UTIs Morbid obesity with BMI of 40.0-44.9, adult (Chronic) Hospital Course and Treatment Imaging Results: Clinical Impression(s) from Imaging Studies Lower Extremity CT 01/13/20 18:08 IMPRESSION: Mild subcutaneous edema or cellulitis of the lower leg and ankle without evidence for focal abscess or acute osteomyelitis Electronically Signed: Will Joe MD at 19:27 EDT , Service support , Venous Duplex 01/13/20 18:59 IMPRESSION: Normal venous Doppler ultrasound of the lower extremity. Electronically Signed: Will Joe MD at 19:21 EDT , Service support , Lower Extremity MRI 01/14/20 12:13 IMPRESSION: No MR evidence of abscess or osteomyelitis. Electronically Signed: Severino Rand MD at 16:35 EDT Tel , Service support , Consultations 01/14/20 04:24 Consult: Onc/Wound/melt supervisor Routine Comment: Operations: None Procedures: None Summary of Care Provided: The patient is a 39 year old F presents with redness of her left lower extremity. Began the day prior to arrival. Patient diagnosed with cellulitis and initially started on cefazolin and clindamycin. Despite that, and leg did not improve so those were discontinued on the and patient was started on vancomycin. Patient also was noted to have a superficial ulceration on the plantar aspect of her left great toe. Given the fact the patient is a poorly controlled diabetic with neuropathy and an MRI was performed. The MRI did not show any evidence of osteomyelitis. On the , the redness of the patient's lower extremity was improved. Patient has a confluent macular lesion on her medial and posterior calf and then some petechial lesions more distally. Not concerned to be vasculitis but today the erythema overall is improved. Patient still complains of pain. Patient will be discharged with 6 more days with 7-day course of antibiotics with trimethoprim/sulfamethoxazole. Patient still has pain which she said is unusual as she has neuropathy usually does have any pain but patient will be given a total of 12 5 mg of oxycodone's. Patient instructed only take it if she actually needs it. [] Patient Problems: Active and Suspected Problems (Last Reviewed 01/14/20 @ 00:[address] Gen Butt MD) Cellulitis (Acute) - Physical Exam Vitals/I&O's: Vital Signs Temp Pulse Resp BP Pulse Ox 36.8 C 56 L 18 99/65 96 01/15/20 08:02 01/15/20 08:02 01/15/20 08:02 01/15/20 08:02 01/15/20 08:02 Oxygen Delivery Method Room Air Weight: 103.9 kg Body Mass Index (BMI) 41.8 Finger Stick Blood Glucose 297 Intake and Output for Last 24 Hours 01/13/20 01/14/20 01/15/20 23:59 23:59 23:59 Intake Total 606 / 606 2956 / 3556 1175 / 1175 Output Total 2450 / 3450 1250 / 1250 Balance 606 / 606 506 / 106 -75 / -75 General: Alert, No apparent distress HEENT: Atraumatic, Normocephalic Oral: Moist Mucosa, No Gingival or Mucosal Lesions/ Ulcerations Extremities: No edema, No Calf Tenderness Skin: - - Macular rash in the medial posterior left calf. Some petechial lesions more distally. Erythema overall is improved from the 18th. Laboratory Results 01/14/20 05:25: Hemoglobin A1c 11.4 H 01/14/20 11:19: POC Glucose 248 H 01/14/20 16:44: POC Glucose 304 H 01/14/20 23:08: POC Glucose 326 H 01/15/20 06:43: POC Glucose 244 H Current Medications Acetaminophen (Tylenol) 650 mg PO Q6H PRN PRN PRN Reason: Pain Score 1-10/Temp > 100.7 F Last Admin: 01/15/20 08:24 Dose: 650 mg Documented by: Atorvastatin Calcium (Lipitor) 20 mg PO QHS [facility] Last Admin: 01/14/20 23:01 Dose: 20 mg Documented by: Dextrose (D50w Syringe) 0 gm IV X1 PRN; Protocol PRN Reason: Hypoglycemia Enoxaparin Sodium (Lovenox) 40 mg SC BID [facility] Last Admin: 01/15/20 10:20 Dose: 40 mg Documented by: Furosemide (Lasix) 20 mg PO DAILY@1700 [facility] Last Admin: 01/14/20 16:47 Dose: 20 mg Documented by: Furosemide (Lasix) 40 mg PO BREAKFAST [facility] Last Admin: 01/15/20 10:20 Dose: 40 mg Documented by: Glucagon () 1 mg IM .X1 PRN PRN Reason: Hypoglycemia Sodium Chloride () 250 mls @ 15 mls/hr IV .[id number] PRN PRN Reason: Saline Flush Vancomycin IV Pharmacy to Dose (1 ea/ Sodium Chloride) 500 mls @ 250 mls/hr IV X1 PRN; Protocol PRN Reason: Rx to Dose Vancomycin HCl 1,250 mg/ (Sodium Chloride) 275 mls @ 167 mls/hr IV Q12H [facility] Last Infusion: 01/15/20 07:13 Dose: Infused Documented by: Insulin Glargine (Lantus (Bkc)) 15 units SC QHS [facility] Last Admin: 01/14/20 23:08 Dose: 15 u Documented by: Insulin Human Lispro (Humalog Kwikpen (Bkc)) 0 unit SC ACHS [facility]; Protocol Last Admin: 01/15/20 06:44 Dose: 4 u Documented by: Lisinopril (Zestril) 2.5 mg PO DAILY [facility] Last Admin: 01/15/20 10:20 Dose: 2.5 mg Documented by: Melatonin (Melatonin) 3 mg PO QHS PRN PRN PRN Reason: INSOMNIA Ondansetron HCl (Zofran) 4 mg IV Q8H PRN PRN PRN Reason: NAUSEA/VOMITING Oxycodone HCl (Oxyir) 5 mg PO Q4H PRN PRN PRN Reason: Pain Score 4-5/10 Last Admin: 01/15/20 10:23 Dose: 5 mg Documented by: Oxycodone HCl (Oxyir) 10 mg PO Q4H PRN PRN PRN Reason: Pain Score 6-10/10 Last Admin: 01/14/20 23:05 Dose: 10 mg Documented by: Propranolol HCl (Inderal) 10 mg PO BID [facility] Last Admin: 01/15/20 10:21 Dose: 10 mg Documented by: Sodium Chloride () 10 - 40 ml IV UD PRN PRN Reason: SALINE FLUSH Tolterodine Tartrate (Detrol La) 4 mg PO DAILY [facility] Last Admin: 01/15/20 10:21 Dose: 4 mg Documented by: Trazodone HCl (Desyrel) 50 mg PO QHS [facility] Last Admin: 01/14/20 23:01 Dose: 50 mg Documented by: Discharge Diet: 1800 Calorie Control Diet Discharge Activity: Return to Normal Activity Keep extremity elevated above heart level: Left Leg Call your doctor if your incision/area has: Increased Pain/ Swelling, Increased Redness Call your doctor if you observe: Fever of 101 or Higher Cleanse incision/area with: Soap & Water Home Medications: Medications to take at Discharge Furosemide [Lasix] 20 mg PO DAILY@1700 08/28/18 Furosemide [Lasix] 40 mg PO BREAKFAST 04/05/19 traZODone [Desyrel] 50 mg PO QHS 07/08/19 insulin glargine 100 unit/mL (3 mL) subcutaneous pen 15 unit SC QHS 11/01/19 lisinopril 2.5 mg tablet 2.5 mg PO DAILY 11/01/19 atorvastatin 20 mg tablet 20 mg PO QHS 11/12/19 oxybutynin chloride 15 mg tablet,extended release 24 hr 15 mg PO DAILY 11/12/19 Naproxen [Naprosyn] 500 mg PO BID PRN PRN 01/13/20 Propranolol HCl 10 mg PO BID 01/13/20 Acetaminophen [Tylenol Tablet] 1,000 mg PO TID tablet 01/15/20 Oxycodone [Oxyir] 5 mg PO Q6H PRN 3 Days #12 tablet 01/15/20 Sulfamethoxazole/Trimethoprim [Bactrim Ds Tablet] 1 ea PO BID #12 tab 01/15/20 Following Prescriptions Were Given to Patient: Sulfamethoxazole/Trimethoprim [Bactrim Ds Tablet] 1 ea PO BID #12 tab Transmission Status: Pending to [facility] Oxycodone [Oxyir] 5 mg PO Q6H PRN 3 Days #12 tablet PRN Reason: Pain Score 6-10/10 Transmission Status: Sent to [facility] Primary Care Physician: Will Shukla MD [Primary Care Provider] - Within 1 Week Please Follow Up With: Adi Monson MD When: 01/20/2020, already scheduled Disposition: Home Minutes spent on discharge:: 32 Patient Condition:: Good Medical Necessity - Tobacco Use Smoking Status: Never smoker Tobacco Use: Non-smoker Meaningful Use Info Meaningful Use Diagnoses (Choose all that apply): None applicable Inpatient E&M: 91420 Disch Hosp
== END 2020-01-15 12:41 | disposition home or self-care (01) | DRG 603 ==
LOC: ED 19:36 → MS3 19:59
PROVIDERS: Admitting Provider Hospitalist; Emergency Provider Emergency Medicine; PCP Family Medicine; Referring Provider Hospitalist
DX: L03.116 Cellulitis of left lower limb (principal); Z68.41 Body mass index [BMI] 40.0-44.9, adult; I47.1 Supraventricular tachycardia; L97.422 Non-pressure chronic ulcer of left heel and midfoot with fat layer exposed; E66.01 Morbid (severe) obesity due to excess calories; N31.9 Neuromuscular dysfunction of bladder, unspecified; E11.621 Type 2 diabetes mellitus with foot ulcer; E11.65 Type 2 diabetes mellitus with hyperglycemia; R60.0 Localized edema; F32.9 Major depressive disorder, single episode, unspecified; E78.5 Hyperlipidemia, unspecified; E11.42 Type 2 diabetes mellitus with diabetic polyneuropathy; I10 Essential (primary) hypertension; G43.909 Migraine, unspecified, not intractable, without status migrainosus; Z91.19 Patient's noncompliance with other medical treatment and regimen; Q05.7 Lumbar spina bifida without hydrocephalus; Z87.440 Personal history of urinary (tract) infections; Z79.4 Long term (current) use of insulin; Z82.3 Family history of stroke; Z82.49 Family history of ischemic heart disease and other diseases of the circulatory system; Z83.3 Family history of diabetes mellitus; Z87.442 Personal history of urinary calculi; Z90.49 Acquired absence of other specified parts of digestive tract; Z93.59 Other cystostomy status
CPT/HCPCS: 36415; 73701; 73718; 80048; 80053; 82962; 83036; 85025; 85610; 85652; 86140; 93971; 99284; J7030; J7040; J7050; Q9967; A4216; J2405

== ENCOUNTER 2020-01-21 22:25 | Emergency (ER) | payer MEDICARE, MEDICAID, SELFPAY ==
[2020-01-21 22:26] VITALS: BP 121/99; PULSE 89; RESP 18; TEMP 37.2; O2SAT 94; BMI 43.5
--- NOTE | 2020-01-21 23:36 | EKG12_ITS ---
Test Reason : SOB Blood Pressure : / mmHG Vent. Rate : 078 BPM Atrial Rate : 078 BPM P-R Int : 136 ms QRS Dur : 074 ms QT Int : 396 ms P-R-T Axes : 015 011 018 degrees QTc Int : 451 ms Normal sinus rhythm Normal ECG Confirmed by XAVIER PAULSON ([id number]), supervising editor trailer KRISTEN DOMINGUEZ ([id number]) on 01/23/2020 8:54:11 AM Referred By: CG Confirmed By:XAVIER PAULSON
[2020-01-21] MEDS: Ipratropium/Albuterol Sulfate 3 ML AMPUL.NEB INHALATION (23:45)
--- NOTE | 2020-01-21 23:45 | ED.DCSUM_ITS ---
History of Present Illness Chief Complaint: Shortness of Breath Informant: Patient Onset: Days Timing: Continuous Quality: Negative for: Dyspnea on exertion, Orthopnea, PND, Wheezing Worsened by: Coughing Relieved by: Nothing Associated Symptoms: Cough, Post-nasal drainage Chest Pain: Pressure, Tightness Narrative: Patient is a 39-year-old female with history of anxiety, spina bifida and poorly controlled diabetes mellitus presenting with chest pain shortness of breath. Patient states she was admitted to the hospital 1 week ago for cellulitis of her left foot. She is recently completed an oral course of Bactrim and was actually feeling better until today when she started having chest tightness, cough and shortness of breath. Patient states she woke up from a nap this evening and felt even worse so she decided to come to emergency room to be evaluated. She states her cough is dry and nonproductive. She denies any fever. She does report decreased appetite and energy level. She also noticed some red streaking going up her left foot which she thinks is new today. She denies any new pain over the foot. Patient states she has had respiratory symptoms when she has had injections in the foot before. Patient denies any known sick contacts. She did she did have some mild chest tightness yesterday but was actually overall feeling better and her appetite had returned. Patient denies associated sore throat or ear pain. Denies any nausea, vomiting or abdominal pain. No other complaints at this time. She denies any swelling of her legs. She denies a history of DVT or PE. Past Medical History - Allergies and Home Meds Allergies/Adverse Reactions: Allergies mushroom Allergy (Verified 01/22/20 00:05) Anaphylaxis peanut Allergy (Verified 01/22/20 00:05) Anaphylaxis Gadolinium-MRI Contrast Medium Adverse Reaction (Verified 01/22/20 00:05) Vomiting Latex, Natural Rubber Adverse Reaction (Verified 01/22/20 00:05) Rash Primary Care Physician: Will Shukla MD [Primary Care Provider] - Past Medical History: - - Spina bifida, diabetes mellitus, peripheral neuropathy, chronic wound of the foot, Anxiety and depression, hypertension, hyperlipidemia Surgical History: cholecystectomy, - - D&C, lumbar back surgery x2, foot surgery x2, abdominal stoma, ventral hernia repair. supraPubic catheter Smoking Status: Never smoker - Family History Paternal Family History: Family History (Last Reviewed 01/14/20 @ 00:[address] Gen Butt MD) Mother CVA (cerebral vascular accident) Thyroid disorder Diabetes Hypertension Heart disease Hyperlipidemia Myocardial infarction, Onset Age: 54 Father Cancer Grandmother Cancer Family History: Reports: - - Denies known paternal medical history including cardiac history. Sibling Family History: Family History (Last Reviewed 01/14/20 @ 00:[address] Gen Butt MD) Mother CVA (cerebral vascular accident) Thyroid disorder Diabetes Hypertension Heart disease Hyperlipidemia Myocardial infarction, Onset Age: 54 Father Cancer Grandmother Cancer Family History: Reports: - - Denies known sibling medical history. Maternal Family History: Family History (Last Reviewed 01/14/20 @ 00:[address] Gen Butt MD) Mother CVA (cerebral vascular accident) Thyroid disorder Diabetes Hypertension Heart disease Hyperlipidemia Myocardial infarction, Onset Age: 54 Father Cancer Grandmother Cancer Family History: Reports: Cancer, Diabetes, Hypertension, Stroke Review of Systems General: Reports: Malaise, - - Decreased appetite. Denies: Chills, Fever, Sweats Eyes: Denies: Visual changes - bilaterally, Diplopia ENT: Reports: Sore throat. Denies: Rhinorrhea Cardiovascular: Reports: Chest pain - Tightness. Denies: Palpitations Respiratory: Reports: Dyspnea, Cough. Denies: Sputum, Dyspnea on exertion Gastrointestinal: Denies: Abdominal pain, Nausea, Vomiting, Diarrhea, Melena, Hematochezia Genitourinary: Denies: Dysuria, Hematuria, Frequency Musculoskeletal: Denies: Back pain, Extremity Pain Skin: Reports: Wounds - Left great toe. Denies: Rash Neurological: Denies: Headache, Weakness, Numbness Physical Exam Vital Signs/Narrative: Vital Signs Temp Pulse Resp BP Pulse Ox 01/21/20 22:26 99 F 89 18 121/99 H 94 Inital Vital Signs reviewed: Yes General: Well nourished, Well developed, No Acute Distress Head: Normocephalic, Atraumatic Eyes: Perrl, EOMI ENT: Moist mucous membranes, No rhinorrhea, TM's clear, - - Normal oropharynx. Negative for: Nasal congestion Neck: Supple, Nontender, No lymphadenopathy, No JVD, - - No meningeal signs Cardiovascular: Regular rate, Regular rhythm, No murmurs Respiratory: No distress, CTA bilaterally, Chest nontender, - - Patient has a dry hacking cough on exam. Negative for: Wheezing, Diminished, Decreased Air Movement Abdomen: Soft, Nontender, Nondistended, Normal bowel sounds Rectal: - - Suprapubic Morales catheter in place Extremities: Nontender, No edema, - - Chronic wound on the plantar surface of the left great toe, no surrounding erythematous changes. Very minor streaking present on the lateral aspect of the left great toe Skin: Normal color, No rash Neurological: Alert, Oriented x3, Cranial nerves II-XII grossly intact, Normal Strength, Normal Sensation Psychological: Normal affect, Normal Mood Diagnostic/Tx/Re-eval Chest X-Ray - ED: 1 View, Read by ED Physician, Read by Radiologist, Right Infiltrate, Left Infiltrate Clinical Impression(s) from Imaging Studies Chest X-Ray 01/22/20 00:00 IMPRESSION: Ill-defined subpleural groundglass opacities are seen more prominent in the lung bases , may represent atypical pneumonia or viral pneumonia (COVID-19 ?). Electronically Signed: Reymundo Cespedes, at 0:46 EDT Tel , Service support , Chest CTA 01/22/20 00:32 IMPRESSION: No demonstrated pulmonary embolism or arterial dissection. Ill-defined subpleural groundglass opacities are seen more prominent in the lung bases , may represent atypical pneumonia or viral pneumonia (COVID-19 ?). Electronically Signed: Reymundo Cespedes, at 2:42 EDT Tel , Service support , Laboratory Data 01/21/20 01/21/20 01/21/20 23:58 23:58 23:58 WBC 9.5 RBC 4.56 Hgb 13.9 Hct 41.7 MCV 91.4 MCH 30.5 MCHC 33.3 RDW Std Deviation 43.8 RDW Coeff of Claude 13.0 Plt Count 201 MPV 10.1 Immature Gran % (Auto) 1.400 H Neut % (Auto) 66.7 Lymph % (Auto) 22.1 [place] % (Auto) 8.9 Eos % (Auto) 0.6 Baso % (Auto) 0.3 Absolute Neuts (auto) 6.4 Absolute Lymphs (auto) 2.11 Nucleated RBC % 0 D-Dimer Quant (PE/DVT) 0.85 H* Sodium 136 Potassium 4.5 Chloride 107 Carbon Dioxide 22.0 Anion Gap 7 BUN 9 Creatinine 1.00 Estim Creat Clear Calc 60.33 Est GFR (MDRD) Af Amer 80 Est GFR (MDRD) Non-Af 66 BUN/Creatinine Ratio 9.0 L Glucose 112 H Calcium 8.8 Troponin I < 0.015 - Rhythm Strip Rhythm Strip: Sinus Rhythm Rate: 78 Ectopy: None Treatment - Dyspnea: Albuterol Repeat Evaluation: Improved With Ambulation: - - dizzy - Medical Decision Making Patient is evaluated for worsening chest tightness cough and shortness of breath. Patient peers nontoxic in no acute distress. Her lung sounds are clear however she does have a dry hacking cough during my exam. Patient was recently hospitalized so we will obtain d-dimer. Cardiac work-up including EKG and troponin do not show any findings events and promotions assistant with ACS. Chest x-ray shows bilateral infiltrate concerning for viral versus atypical pneumonia. Patient does not have any significant leukocytosis. She is not hypoxic. D-dimer is elevated and CT is obtained to rule out PE. Patient does not have a PE but she does have findings consistent with viral pneumonia versus atypical pneumonia again seen. Patient does have improvement of her symptoms with DuoNeb treatment. She is not wheezing I do not think steroids would be beneficial at this time. Patient be placed on a Z-Kenneth in case she does have an atypical pneumonia but is counseled as possible she could have coronavirus given her the current pandemic and her recent hospitalization. She will be swabbed but as she will be discharged home the outpatient testing will be performed. Patient is ambulated and while she does not feel good during ambulation she does not have any hypoxia. At this time I do not think she requires admission as she is not requiring any supplementary oxygen. Patient is given return precautions. She is counseled to quarantine at home until her results come back and her symptoms have improved. She instructed to follow-up with her primary care doctor. Patient is counseled on signs and symptoms requiring return to the emergency room. Patient verbalizes agreement and understand this plan. Patient discharged home in stable and improved condition. ED Disposition - Plan for ED Patient: Disposition: Home or Assisted Living Diagnosis: Viral pneumonia, Suspected COVID-19 virus infection, Dyspnea Instructions: ED Dyspnea, ED PNEUMONITIS Adult Prescriptions: Albuterol Inhaler [Ventolin Hfa] 1 - 2 puff INHALATION Q4H PRN PRN #1 inhaler PRN Reason: Wheezing Prescription Printed Azithromycin [Zithromax Z-Kenneth] 250 mg PO UD #1 box Prescription Printed Referrals: Will Shukla MD [Primary Care Provider] - Additional Instructions: Your coronavirus test is pending. The results should come back in 3 to 5 days. Your imaging looks like viral pneumonia in the lungs. In the meantime treat yourself as if you do have coronavirus infection and quarantine at home. Return the emergency room with worsening symptoms. Please call your primary care doctor tomorrow to let them know that you were having shortness of breath and possible coronavirus infections so you can have close follow-up.
[2020-01-21 23:46] VITALS: PULSE 88; RESP 16
[2020-01-22] VITALS (9 sets, daily range): BP systolic 106–125; BP diastolic 71–81; PULSE 66–83; RESP 14–28; TEMP 36.9–37.5; O2SAT 94–99
--- NOTE | 2020-01-22 | RAD_ITS ---
STUDY: X-RAY CHEST REASON FOR EXAM: Female, 39 years old. DYSPNEA AND COUGH -- BEST IMAGES POSSIBLE, PATIENT KEPT COUGHING WITH INSPIRATIONS TECHNIQUE: Single AP portable view of the chest. COMPARISON: None. FINDINGS: Ill-defined subpleural groundglass opacities are seen more prominent in the lung bases , may represent atypical pneumonia or viral pneumonia (COVID-19 ?). . There is no demonstrated pleural abnormality. Normal size heart. Normal mediastinum and cristiano. Normal visualized pulmonary arteries. Normal visualized aortic arch and descending thoracic aorta. Normal visualized thoracic spine. Normal visualized ribs, clavicles, and shoulders. There is no demonstrated abnormality of the visualized soft tissue structures of the upper abdomen. RAD/Chest 1 View (Portable) IMPRESSION: Ill-defined subpleural groundglass opacities are seen more prominent in the lung bases , may represent atypical pneumonia or viral pneumonia (COVID-19 ?). Electronically Signed: Reymundo Cespedes, at 0:46 EDT Tel , Service support ,
[2020-01-22] MEDS: 0.9% Normal Saline 1,000 ML 999 ML IV (00:01)
[2020-01-22 00:11] LABS: Absolute Lymphocyte Count 2.11 X10^3/uL (0.83-4.51); Absolute Neutrophil Count 6.4 X10^3/uL (2.0-7.7); Basophil# 0.03 X10^3/uL; Basophil% 0.3 % (0-1); Eosinophil# 0.06 X10^3/uL; Eosinophils% 0.6 % (0-5); Hematocrit 41.7 % (37-47); Hemoglobin 13.9 g/dL (12.0-15.0); Lymphocyte # 2.11 X10^3/ul (4.0); Lymphocyte % 22.1 % (19-41); Mean Corp Hgb Conc 33.3 g/dL (32-36); Mean Corpuscular Hgb 30.5 pg (27.0-32.0); Mean Corpuscular Volume 91.4 fL (81-99); Mean Platelet Vol. 10.1 fl (6.2-12.0); Monocyte# 0.85 X10^3/uL; Monocyte% 8.9 % (0-10); NRBC Flagged by Analyzer 0 % (0-5); Neutrophil # 6.35 X10^3/uL (2.7-7.7); Neutrophil % 66.7 % (47-70); Platelet Count 201 K/mm3 (150-450); RBC Distribution Width SD 43.8 fl (35.1-43.9); Red Blood Count 4.56 M/mm3 (4.2-5.4); White Blood Count 9.5 K/mm3 (4.4-11.0)
[2020-01-22 00:25] LABS: D-Dimer Quantitative (DVT/PE) 0.85 FEU/ug/m (0.27-0.49)
--- NOTE | 2020-01-22 00:32 | CT_ITS ---
STUDY: CTA CHEST REASON FOR EXAM: Female, 39 years old. SOB,COUGH AND CHEST TIGHTNESS,ELEVATED DDIMER -- HX:HLD,HTN,DIABETES,SPINA BIFIDA,NEUROGENIC BLADDER -- SURGERY:CHOLECYSTECTOMY,BACK RADIATION DOSAGE (If Supplied By Facility): CTDIvol = ( 13.85 ) mGy, DLP = ( 471.39 ) mGycm TECHNIQUE: The examination was performed with the intravenous administration of IV 100mL [id number]-370. Post-processing of the angiographic images was performed, with multiplanar reformation and 3D reconstruction. Individualized dose optimization techniques were used for this CT. COMPARISON: None. FINDINGS: Normal enhancement of the main pulmonary artery and right and left pulmonary arteries. Normal enhancement of the bilateral peripheral pulmonary arteries. There is no demonstrated pulmonary embolism. Normal thoracic aorta and visualized great vessels. There is no demonstrated aortic dissection. Normal heart and pericardium. Normal mediastinum. Normal hilar regions. Normal visualized trachea and bronchi. The lungs are well expanded. Ill-defined subpleural groundglass opacities are seen more prominent in the lung bases , may represent atypical pneumonia or viral pneumonia (COVID-19 ?). Normal pleura. Normal chest wall structures. Normal osseous structures. Normal visualized upper abdomen. CT/CTA Chest W/WO Contrast IMPRESSION: No demonstrated pulmonary embolism or arterial dissection. Ill-defined subpleural groundglass opacities are seen more prominent in the lung bases , may represent atypical pneumonia or viral pneumonia (COVID-19 ?). Electronically Signed: Reymundo Cespedes, at 2:42 EDT Tel , Service support ,
[2020-01-22 00:40] LABS: Anion Gap 7 (5-15); BUN 9 mg/dL (7-18); Calcium,Total 8.8 mg/dL (8.5-10.1); Chloride 107 mmol/L (98-107); EST Glomerular Filtration Rate 66 mL/min (>60); Est Glom Filt Rate - Afr Amer 80 mL/min (>60); Estimated Creatinine Clearance 60.33 ml/min; Glucose 112 mg/dL (74-106); Potassium 4.5 mmol/L (3.5-5.1); Sodium Level 136 mmol/L (136-145)
== END 2020-01-22 05:39 | disposition home or self-care (01) ==
PROVIDERS: Emergency Provider Emergency Medicine; PCP Family Medicine
DX: U07.1 COVID-19 (principal); J12.9 Viral pneumonia, unspecified; Q05.9 Spina bifida, unspecified; R06.00 Dyspnea, unspecified; E78.5 Hyperlipidemia, unspecified; N31.9 Neuromuscular dysfunction of bladder, unspecified; Z82.49 Family history of ischemic heart disease and other diseases of the circulatory system; Z90.49 Acquired absence of other specified parts of digestive tract; Z91.040 Latex allergy status
CPT/HCPCS: 71045; 71275; 80048; 84484; 85025; 85379; 87635; 93005; 94640; 94799; 96360; 99284; J7030; Q9967; A4216; U0003

== ENCOUNTER 2020-02-12 14:40 | Inpatient (IN) | payer MEDICARE, MEDICAID, SELFPAY ==
[2020-02-12] VITALS (19 sets, daily range): BP systolic 90–128; BP diastolic 52–90; PULSE 76–131; RESP 11–21; TEMP 37.1–38.6; O2SAT 94–100; BMI 41.7; BMI 41.8
--- NOTE | 2020-02-12 15:05 | RAD_ITS ---
STUDY: X-RAY - LEFT FOOT CLINICAL: Female, 39 years old. FEVER, CHILLS, NAUSEA/VOMITING. HAS WOUND ON LEFT FOOT. TECHNIQUE: 3 view(s) of the foot. COMPARISON: None. FINDINGS: Prior surgical resection of the distal half of the fifth metatarsal bone. No acute fracture. No evidence of active osteomyelitis. No subcutaneous gas. The soft tissues are prominent around the foot which could be chronic or related to soft tissue swelling. Flexion deformities are present. Normal talus, calcaneus, and tarsal bones. Normal visualized subtalar, talonavicular, calcaneocuboid, tarsal and tarsometatarsal articulations. RAD/Foot min 3 Views IMPRESSION: No fracture or evidence of osteomyelitis Electronically Signed: Rich Rucker MD at 16:36 EDT , Service support ,
--- NOTE | 2020-02-12 15:06 | ED.DCSUM_ITS ---
History of Present Illness Chief Complaint: Fever Informant: Patient Onset: Today Narrative: Patient presents secondary to fever, chills, body aches, vomiting. She was diagnosed with Covid on January 21. She states her symptoms from that were completely resolved. She woke up this afternoon with body aches and fever. She is had nausea and vomiting and could not keep Tylenol down to control her fever. She does have a wound on her left foot that reopened today and was bleeding. She is not sure if this is the source of her infection. - Past Medical History (1) Essential hypertension Status: Chronic (2) Hyperlipidemia Status: Chronic (3) Spina bifida aperta of lumbar spine Status: Chronic Comment: s/p surgery x 2 weakness and numbness in legs neurogenic bladder and frequent UTIs (4) Type 2 diabetes mellitus with diabetic polyneuropathy Status: Chronic Past Medical History - Allergies and Home Meds Allergies/Adverse Reactions: Allergies mushroom Allergy (Verified 02/12/20 14:40) Anaphylaxis peanut Allergy (Verified 02/12/20 14:40) Anaphylaxis Gadolinium-MRI Contrast Medium Adverse Reaction (Verified 02/12/20 14:40) Vomiting Latex, Natural Rubber Adverse Reaction (Verified 02/12/20 14:40) Rash Primary Care Physician: Will Shukla MD [Primary Care Provider] - Prior records reviewed: Yes Surgical History: cholecystectomy, - - D&C, lumbar back surgery x2, foot surgery x2, abdominal stoma, ventral hernia repair. supraPubic catheter Lives: Spouse/ Significant Other Smoking Status: Former smoker - Family History Paternal Family History: Family History (Last Reviewed 01/14/20 @ 00:[address] Gen Butt MD) Mother CVA (cerebral vascular accident) Thyroid disorder Diabetes Hypertension Heart disease Hyperlipidemia Myocardial infarction, Onset Age: 54 Father Cancer Grandmother Cancer Family History: Reports: - - Denies known paternal medical history including cardiac history. Sibling Family History: Family History (Last Reviewed 01/14/20 @ 00:[address] Gen Butt MD) Mother CVA (cerebral vascular accident) Thyroid disorder Diabetes Hypertension Heart disease Hyperlipidemia Myocardial infarction, Onset Age: 54 Father Cancer Grandmother Cancer Family History: Reports: - - Denies known sibling medical history. Maternal Family History: Family History (Last Reviewed 01/14/20 @ 00:[address] Gen Butt MD) Mother CVA (cerebral vascular accident) Thyroid disorder Diabetes Hypertension Heart disease Hyperlipidemia Myocardial infarction, Onset Age: 54 Father Cancer Grandmother Cancer Family History: Reports: Cancer, Diabetes, Hypertension, Stroke Review of Systems General: Denies: Chills, Fever Eyes: Denies: Visual changes - bilaterally ENT: Denies: Bilateral ear pain Cardiovascular: Denies: Chest pain Respiratory: Denies: Dyspnea, Cough Gastrointestinal: Reports: Nausea, Vomiting. Denies: Abdominal pain Musculoskeletal: Reports: Extremity Pain Skin: Reports: Wounds Neurological: Denies: Headache Hematologic: Denies: Easy bruising, Easy bleeding Allergy: Denies: Uticaria Physical Exam Vital Signs/Narrative: Vital Signs Temp Pulse Resp BP Pulse Ox 02/12/20 14:43 101.5 F H 131 H 21 H 128/90 H 96 02/12/20 14:41 101.5 F H 131 H 21 H 128/90 H 96 Inital Vital Signs reviewed: Yes General: Well nourished, Well developed Head: Normocephalic ENT: Moist mucous membranes Neck: Supple Cardiovascular: Regular rate, Regular rhythm Respiratory: No distress, CTA bilaterally Abdomen: Soft, Nontender, Normal bowel sounds Extremities: - - Open ulcerated wound to the bottom of her left great toe. Mild surrounding erythema. No drainage. Open blister over the plantar surface of the foot with no surrounding erythema. Neurological: Alert, Oriented x3 Psychological: Normal affect Diagnostic/Tx/Re-eval Impressions Foot X-Ray 02/12/20 15:05 IMPRESSION: No fracture or evidence of osteomyelitis Electronically Signed: Rich Rucker MD at 16:36 EDT , Service support , Chest X-Ray 02/12/20 15:44 IMPRESSION: Normal x-ray examination of the chest. Electronically Signed: Rich Rucker MD at 16:30 EDT , Service support , 02/12/20 15:05 Xray Foot [Foot min 3 Views] [RAD] Stat 02/12/20 15:44 Chest 1 View (Portable) [RAD] Stat Laboratory Results 02/12/20 02/12/20 02/12/20 15:47 15:47 15:47 WBC 14.6 H RBC 4.23 Hgb 12.7 Hct 37.4 MCV 88.4 MCH 30.0 MCHC 34.0 RDW Std Deviation 41.3 RDW Coeff of Claude 12.7 Plt Count 183 MPV 10.8 Immature Gran % (Auto) 1.000 H Neut % (Auto) 88.1 H Lymph % (Auto) 4.9 L Baker % (Auto) 5.6 Eos % (Auto) 0.1 Baso % (Auto) 0.3 Absolute Neuts (auto) 12.9 H Absolute Lymphs (auto) 0.71 L Nucleated RBC % 0 Sodium 133 L Potassium 4.0 Chloride 102 Carbon Dioxide 23.0 Anion Gap 8 BUN 8 Creatinine 0.97 Estim Creat Clear Calc 62.19 Est GFR (MDRD) Af Amer 83 Est GFR (MDRD) Non-Af 69 BUN/Creatinine Ratio 8.3 L Glucose 257 H Lactic Acid 2.6 H* Calcium 9.0 Urine Color Urine Clarity Urine pH Ur Specific [place] Urine Protein Urine Glucose (UA) Urine Ketones Urine Occult Blood Urine Nitrite Urine Bilirubin Urine Urobilinogen Ur Leukocyte Esterase 02/12/20 16:05 WBC RBC Hgb Hct MCV MCH MCHC RDW Std Deviation RDW Coeff of Claude Plt Count MPV Immature Gran % (Auto) Neut % (Auto) Lymph % (Auto) Baker % (Auto) Eos % (Auto) Baso % (Auto) Absolute Neuts (auto) Absolute Lymphs (auto) Nucleated RBC % Sodium Potassium Chloride Carbon Dioxide Anion Gap BUN Creatinine Estim Creat Clear Calc Est GFR (MDRD) Af Amer Est GFR (MDRD) Non-Af BUN/Creatinine Ratio Glucose Lactic Acid Calcium Urine Color Yellow Urine Clarity Clear Urine pH 8.0 Ur Specific [place] 1.015 Urine Protein 100 H Urine Glucose (UA) 1000 H Urine Ketones 50 H Urine Occult Blood 25 H Urine Nitrite Negative Urine Bilirubin Negative Urine Urobilinogen 1 H Ur Leukocyte Esterase 500 H - Medical Decision Making Patient was given Zofran and Tylenol along with morphine for pain control. She is given IV fluids. She does meet criteria for severe sepsis at this time. She is ordered a 30 cc/kg IV fluid bolus. Covid test is still pending at this time but she does need to go to the ICU secondary to her severe sepsis regardless. Urine does appear infected but I do question as this could be chronic colonization with her indwelling catheter. Her left foot does appear to be acutely infected. She is given Zosyn and vancomycin and I have spoken with the hospitalist. ED Disposition - Plan for ED Patient: Disposition: Acute Care Hospital [facility] Diagnosis: Severe sepsis, Diabetic foot infection Referrals: Will Shukla MD [Primary Care Provider] -
--- NOTE | 2020-02-12 15:44 | RAD_ITS ---
STUDY: X-RAY CHEST REASON FOR EXAM: Female, 39 years old. FEVER, CHILLS, NAUSEA/VOMITING. HAS WOUND ON LEFT FOOT. TECHNIQUE: Single AP portable view of the chest. COMPARISON: January 22, 2020 FINDINGS: The lungs are clear and expanded. There is no demonstrated pleural abnormality. Normal size heart. Normal mediastinum and cristiano. Normal visualized pulmonary arteries. Normal visualized aortic arch and descending thoracic aorta. Stable visualized osseous structures. RAD/Chest 1 View (Portable) IMPRESSION: Normal x-ray examination of the chest. Electronically Signed: Rich Rucker MD at 16:30 EDT , Service support ,
[2020-02-12] MEDS: Acetaminophen 500 MG Tablet 1000 MG PO (16:00)
[2020-02-12] MEDS: Ondansetron 4 MG/2 ML Vial IV ×2 (16:00→17:20)
[2020-02-12] MEDS: 0.9% Normal Saline 1,000 ML 150 ML IV (16:00)
[2020-02-12 16:15] LABS: Absolute Lymphocyte Count 0.71 X10^3/uL (0.83-4.51); Absolute Neutrophil Count 12.9 X10^3/uL (2.0-7.7); Basophil# 0.04 X10^3/uL; Basophil% 0.3 % (0-1); Eosinophil# 0.02 X10^3/uL; Eosinophils% 0.1 % (0-5); Hematocrit 37.4 % (37-47); Hemoglobin 12.7 g/dL (12.0-15.0); Lymphocyte # 0.71 X10^3/ul (4.0); Lymphocyte % 4.9 % (19-41); Mean Corpuscular Volume 88.4 fL (81-99); Mean Platelet Vol. 10.8 fl (6.2-12.0); Monocyte# 0.81 X10^3/uL; Monocyte% 5.6 % (0-10); NRBC Flagged by Analyzer 0 % (0-5); Neutrophil # 12.85 X10^3/uL (2.7-7.7); Neutrophil % 88.1 % (47-70); Platelet Count 183 K/mm3 (150-450); RBC Distribution Width CV 12.7 % (11.6-14.6); RBC Distribution Width SD 41.3 fl (35.1-43.9); Red Blood Count 4.23 M/mm3 (4.2-5.4); White Blood Count 14.6 K/mm3 (4.4-11.0)
[2020-02-12 16:21] LABS: Mucous, Urine 0 SEEN /hpf (<or=2+)
[2020-02-12 16:30] LABS: Anion Gap 8 (5-15); BUN 8 mg/dL (7-18); BUN/Creat Ratio 8.3 RATIO (10-20); Chloride 102 mmol/L (98-107); Creatinine, Serum 0.97 mg/dL (0.55-1.02); EST Glomerular Filtration Rate 69 mL/min (>60); Est Glom Filt Rate - Afr Amer 83 mL/min (>60); Estimated Creatinine Clearance 62.19 ml/min; Glucose 257 mg/dL (74-106); Sodium Level 133 mmol/L (136-145)
[2020-02-12 16:50] LABS: Lactic Acid 2.6 mmol/L (0.4-1.9)
[2020-02-12 16:54] LABS: Color, Urine Yellow (Yellow); Glucose, Dipstick 1000 mg/dl (Normal); Ketone-Dipstick 50 mg/dl (Negative); Leukocyte Esterase-Dipstick 500 /ul (Negative); Nitrite-Dipstick Negative (Negative); Occult Blood-Urine 25 /ul (Negative); Protein-Dipstick 100 mg/dl (Negative); Specific Gravity, Urine 1.015 (1.002-1.030); Urine Bilirubin Dipstick Negative (Negative); Urine Clarity Clear (Clear); Urine Urobilinogen 1 mg/dl (Normal)
--- NOTE | 2020-02-12 17:12 | NURSING ---
ICU AMBER SEVERE SEPSIS, LEFT FOOT WOUND
[2020-02-12 17:18] LABS: White Blood Cells 25-50 SEEN /hpf (0-5)
[2020-02-12 17:19] LABS: Bacteria 2+ /hpf (None Seen); Red Blood Cells-Urine 0-5 SEEN /hpf (0-5); Squamous Epithelial Cells - UA 0-5 SEEN /hpf (5-10)
[2020-02-12] MEDS: Morphine 4 MG/ML Syringe IV (17:20)
[2020-02-12] MEDS: 0.9% Normal Saline 1,000 ML 999 ML IV ×3 (17:20→20:12)
--- NOTE | 2020-02-12 17:29 | NURSING ---
[facility] 204
--- NOTE | 2020-02-12 17:37 | PCM.HP.STD ---
<Megan Clark CERTIFIED SUBSTANCE ABUSE COUNSELOR - Last Filed: 02/12/20 18:01> Problem List (1) Urinary tract infection Status: Suspected (2) Cellulitis Status: Acute (3) Severe sepsis Status: Acute (4) Diabetic foot infection Status: Acute (5) PSVT (paroxysmal supraventricular tachycardia) Status: Chronic (6) Hyperlipidemia Status: Chronic (7) Essential hypertension Status: Chronic (8) Non-compliance Status: Chronic (9) Normochromic normocytic anemia Status: Chronic Comment: HGB normal in Apr 2018 (10) Type 2 diabetes mellitus with diabetic polyneuropathy Status: Chronic (11) Lower extremity edema Status: Chronic (12) Spina bifida aperta of lumbar spine Status: Chronic Comment: s/p surgery x 2 weakness and numbness in legs neurogenic bladder and frequent UTIs (13) Morbid obesity with BMI of 40.0-44.9, adult Status: Chronic History of Present Illness Date of Admission: 02/12/20 Chief Complaint: Nausea, vomiting, fever/chills, flank pain. The patient is a 39 year old F who presents the emergency room with nausea and vomiting which began suddenly this morning. Patient also reports fever, chills at home. She denies diarrhea. Denies cough, shortness of breath. Patient tested positive for COVID 01/22/2020. She states her symptoms at that time were shortness of breath. This has since resolved. She reports left great toe wound which was bleeding earlier today. Patient has a chronic suprapubic catheter secondary to neurogenic bladder. She reports history of recurrent UTIs. Patient also notes her left calf area is red and warm which is new as of today. She denies other associated symptoms or complaints. She has a past medical history of chronic suprapubic catheter secondary to neurogenic bladder, history of spina bifida with neurogenic bladder, neurogenic bowel and chronic back pain, anxiety, depression, history of migraines, type 2 diabetes mellitus, hyperlipidemia, morbid obesity. Past Medical History Past Medical History (Chronic Problems): Chronic Problems (Last Reviewed 01/14/20 @ 00:[address] Gen Butt MD) PSVT (paroxysmal supraventricular tachycardia) (Chronic) Hyperlipidemia (Chronic) Essential hypertension (Chronic) Non-compliance (Chronic) Normochromic normocytic anemia (Chronic) HGB normal in Apr 2018 Type 2 diabetes mellitus with diabetic polyneuropathy (Chronic) Lower extremity edema (Chronic) Spina bifida aperta of lumbar spine (Chronic) s/p surgery x 2 weakness and numbness in legs neurogenic bladder and frequent UTIs Morbid obesity with BMI of 40.0-44.9, adult (Chronic) Medical History: Medical History (Last Reviewed 01/14/20 @ 00:[address] Gen Butt MD) PSVT (paroxysmal supraventricular tachycardia) (Chronic) I47.1 Hyperlipidemia (Chronic) E78.5 Essential hypertension (Chronic) I10 Non-compliance (Chronic) Z91.19 Normochromic normocytic anemia (Chronic) D64.9 HGB normal in Apr 2018 Type 2 diabetes mellitus with diabetic polyneuropathy (Chronic) E11.42 Lower extremity edema (Chronic) R60.0 Spina bifida aperta of lumbar spine (Chronic) Q05.7 s/p surgery x 2 weakness and numbness in legs neurogenic bladder and frequent UTIs Morbid obesity with BMI of 40.0-44.9, adult (Chronic) E66.01, Z68.41 Anxiety and depression F41.9, F32.9 Arthritis M19.90 Chronic back pain M54.9, G89.29 Chronic nausea R11.0 Constipation K59.00 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 Will follow, no need yet for cysto retros etc. 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 Neurogenic bladder N31.9 Neurogenic bowel K59.2 Panic attacks F41.0 Thyroid cyst E04.1 UTI (urinary tract infection) N39.0 Uninodular goiter E04.1 Cellulitis of left lower extremity L03.116 Diabetic ulcer of left heel with fat layer exposed E11.621, L97.422 Infection of bladder catheter T83.510A Sepsis A41.9 UTI (urinary tract infection) (Resolved) N39.0 Ulcer of left heel and midfoot with fat layer exposed L97.422 Allergies mushroom Allergy (Verified 02/12/20 14:40) Anaphylaxis peanut Allergy (Verified 02/12/20 14:40) Anaphylaxis Gadolinium-MRI Contrast Medium Adverse Reaction (Verified 02/12/20 14:40) Vomiting Latex, Natural Rubber Adverse Reaction (Verified 02/12/20 14:40) Rash Home Medications: Ambulatory Orders Medication Instructions Recorded Furosemide [Lasix] 20 mg PO DAILY@1700 08/28/18 Furosemide [Lasix] 40 mg PO BREAKFAST 04/05/19 traZODone [Desyrel] 50 mg PO QHS 07/08/19 insulin glargine 100 unit/mL (3 15 unit SC QHS 11/01/19 mL) subcutaneous pen lisinopril 2.5 mg tablet 2.5 mg PO DAILY 11/01/19 atorvastatin 20 mg tablet 20 mg PO QHS 11/12/19 oxybutynin chloride 15 mg 15 mg PO DAILY 11/12/19 tablet,extended release 24 hr Propranolol HCl 10 mg PO BID 01/13/20 Albuterol Inhaler [Ventolin Hfa] 1 - 2 puff INHALATION Q4H PRN PRN 01/22/20 #1 inhaler Acetaminophen [Tylenol Extra 1,000 mg PO TID PRN PRN 02/12/20 Strength] Surgical History: Surgical History (Last Reviewed 01/14/20 @ 00:[address] Gen Butt MD) history insertion suprapubic catheter History of cholecystectomy Z90.49 History of dilation and curettage Z98.890 History of spinal surgery Z98.890 x 2 Hx of foot surgery Z98.890 Hx of ventral hernia repair Z98.890, Z87.19 S/P thyroid biopsy Onset Date: ~11/06/19 Z98.890 Status post gastric surgery Z98.890 Surgical History: cholecystectomy, - - D&C, lumbar back surgery x2, foot surgery x2, abdominal stoma, ventral hernia repair. supraPubic catheter Psychiatric History: Anxiety, Depression MANAGER UNIVERSITY History: No pertinent MANAGER UNIVERSITY history Lives: Spouse/ Significant Other Smoking Status: Former smoker Alcohol: None Drugs: None - *Family History Maternal Family History: Family History (Last Reviewed 02/12/20 @ 17:42 by Megan Clark CERTIFIED SUBSTANCE ABUSE COUNSELOR, CERTIFIED SUBSTANCE ABUSE COUNSELOR-C) Mother CVA (cerebral vascular accident) Thyroid disorder Diabetes Hypertension Heart disease Hyperlipidemia Myocardial infarction, Onset Age: 54 Father Cancer Grandmother Cancer History Items: Cancer, Diabetes, Hypertension, Stroke Paternal Family History: Family History (Last Reviewed 02/12/20 @ 17:42 by Megan Clark NP, CERTIFIED SUBSTANCE ABUSE COUNSELOR-C) Mother CVA (cerebral vascular accident) Thyroid disorder Diabetes Hypertension Heart disease Hyperlipidemia Myocardial infarction, Onset Age: 54 Father Cancer Grandmother Cancer History Items: Cancer Sibling Family History: Family History (Last Reviewed 02/12/20 @ 17:42 by Megan Clark NP, CERTIFIED SUBSTANCE ABUSE COUNSELOR-C) Mother CVA (cerebral vascular accident) Thyroid disorder Diabetes Hypertension Heart disease Hyperlipidemia Myocardial infarction, Onset Age: 54 Father Cancer Grandmother Cancer History Items: - - Denies known sibling medical history. Review of Systems Constitutional: Reports: Chills, Fever, Malaise HEENT: Denies: Head Aches, Sinus Congestion, Sinus Drainage Cardiovascular: Denies: Chest Pain, Palpitations Respiratory: Denies: Cough, Shortness of Breath, Shortness of breath at rest, Sputum production Gastrointestinal: Reports: Abdominal Pain, Constipation, Nausea, Vomiting. Denies: Diarrhea Genitourinary: Reports: - - Chronic suprapubic catheter. Denies: Dysuria Musculoskeletal: Denies: Joint Pain, Joint Tenderness Skin: Denies: Rash, Wounds Neurological: Denies: Numbness, Tingling, Focal weakness Psychiatric: Denies: Anxiety, Depression, Homicidal Ideations, Suicidal Ideations Hematologic/ Lymphatic: Denies: Easy Bruising, Easy Bleeding VTE Information - Inpt Only VTE Present on Admission: No VTE Mechan Device Prophylaxis: None VTE Pharm Prophylaxis ordered?: Yes Patient Problems: Active and Suspected Problems (Last Reviewed 01/14/20 @ 00:[address] Gen Butt MD) Severe sepsis (Acute) Diabetic foot infection (Acute) - Physical Exam Vitals/I&O's: Vital Signs Temp Pulse Resp BP Pulse Ox 100.0 F H 93 15 90/52 L 95 02/12/20 17:32 02/12/20 17:32 02/12/20 17:32 02/12/20 17:32 02/12/20 17:32 Oxygen Delivery Method Room Air Weight: 228 lb 9.91 oz Body Mass Index (BMI) 41.8 Finger Stick Blood Glucose 297 Intake and Output for Last 24 Hours 02/10/20 02/11/20 02/12/20 23:59 23:59 23:59 Intake Total 200 / 200 Balance 200 / 200 General: Alert, Oriented x3, Cooperative HEENT: Atraumatic, PERRLA, EOMI, Normocephalic Neck: Supple, No JVD, Negative Carotid Bruits Lungs: Clear to auscultation, Normal air movement Cardiovascular: Regular rate, No murmurs Abdomen: Bowel Sounds Present, Soft, Non Tender, - - Suprapubic catheter in place Extremities: No clubbing, No cyanosis, No edema, Capillary Refill Less than 3 Seconds Skin: No rashes, No breakdown, - - Left heel healing ulceration, left distal toe diabetic foot wound Musculoskeletal: No Tenderness to Palpation of Joints or Extremities Neurological: Cranial nerves II-XII grossly intact, Neuro grossly intact Psych/Mental Status: Normal Affect, Appropriate Laboratory Results 02/12/20 15:25: COVID-19 (MALIK) Pending 02/12/20 15:47: WBC 14.6 H, RBC 4.23, Hgb 12.7, Hct 37.4, MCV 88.4, MCH 30.0, MCHC 34.0, RDW Std Deviation 41.3, RDW Coeff of Claude 12.7, Plt Count 183, MPV 10.8, Immature Gran % (Auto) 1.000 H, Neut % (Auto) 88.1 H, Lymph % (Auto) 4.9 L, [place] % (Auto) 5.6, Eos % (Auto) 0.1, Baso % (Auto) 0.3, Absolute Neuts (auto) 12.9 H, Absolute Lymphs (auto) 0.71 L, Nucleated RBC % 0 02/12/20 15:47: Sodium 133 L, Potassium 4.0, Chloride 102, Carbon Dioxide 23.0, Anion Gap 8, BUN 8, Creatinine 0.97, Estim Creat Clear Calc 62.19, Est GFR (MDRD) Af Amer 83, Est GFR (MDRD) Non-Af 69, BUN/Creatinine Ratio 8.3 L, Glucose 257 H, Calcium 9.0 02/12/20 15:47: Lactic Acid 2.6 H* 02/12/20 16:05: Urine Color Yellow, Urine Clarity Clear, Urine pH 8.0, Ur Specific [place] 1.015, Urine Protein 100 H, Urine Glucose (UA) 1000 H, Urine Ketones 50 H, Urine Occult Blood 25 H, Urine Nitrite Negative, Urine Bilirubin Negative, Urine Urobilinogen 1 H, Ur Leukocyte Esterase 500 H, Urine RBC 0-5 SEEN, Urine WBC 25-50 SEEN, Ur Squamous Epith Cells 0-5 SEEN, Urine Bacteria 2+, Urine Mucus 0 SEEN Current Medications Sodium Chloride () 1,000 mls @ 150 mls/hr IV .Q6H40M DERIAN Last Infusion: 02/12/20 17:20 Dose: 0 mls/hr Documented by: Sodium Chloride () 1,000 mls @ 999 mls/hr IV .Q1H1M DERIAN; Protocol Stop: 02/12/20 20:10 Last Admin: 02/12/20 17:20 Dose: 999 mls/hr Documented by: Vancomycin HCl 1,500 mg/ (Sodium Chloride) 530 mls @ 250 mls/hr IV X1 ONE Stop: 02/12/20 19:37 Assessment/Plan All Active Problems (Last Reviewed 01/14/20 @ 00:[address] Gen Butt MD) Cellulitis (Acute) Severe sepsis (Acute) Diabetic foot infection (Acute) UTI (urinary tract infection) (Resolved) 1. Severe sepsis secondary UTI with probable pyelonephritis and left great toe infected diabetic ulceration with left lower extremity cellulitis-IV Vanco and IV Zosyn. Blood urine and wound cultures pending. Fluids per sepsis protocol. 2. Acute complicated UTI with probable pyelonephritis-history of recurrent UTIs. Patient has chronic suprapubic catheter secondary to neurogenic bladder. Urine culture pending. Prior urine culture with multiple organisms including stenotrophomonas, staph, Enterobacter, Corynebacterium, and Serratia marcescens. IV Vanco and IV Zosyn as noted above. 3. Left great toe infected diabetic ulceration with suspected left lower extremity cellulitis-Follows with Dr. Faria. Wound RN consult. Consult podiatry. Obtain wound culture. Patient also has a left heel ulceration that appears healing. IV antibiotics as noted above. 4. Recent COVID infection-tested +01/22/2020. Repeat test pending. Patient denies upper respiratory symptoms. 5. History of spina bifida with neurogenic bladder, neurogenic bowel, chronic back pain with lumbar spine surgery x2 6. Anxiety/depression-no longer be on regimen. Previously on buspirone and duloxetine. 7. History of migraines-continue home propanolol regimen. 8. Type 2 diabetes mellitus- Hemoglobin A1c 01/14/2020 11.4%. Continue Lantus and Accu-Cheks with sliding scale insulin. 9. Hyperlipidemia-continue statin. 10. Morbid obesity-encourage diet and lifestyle modifications. 11. Chronic constipation due to neurogenic bowel from history of spina bifida-continue bowel regimen. DVT prophylaxis-Lovenox sc This patient was seen by NACHO Maravilla under the supervision of Dr. Cordero. <Juju Cordero - Last Filed: 02/12/20 18:44> History of Present Illness Date of Admission: 02/12/20 I agree with the above and and the following is a reflection of my independent history and PE. The patient is a 39 year old F who presented to the ED today with N/V, fevers/chills and general malaise. She states that she was feeling fine until last night and then she started with sx. She did recently have COVID-19 at the end of Dec but felt that her sx did completely resolve and she is not having any sx now that she had then other than fever. Past Medical History Medical History: Medical History (Last Reviewed 01/14/20 @ 00:[address] Gen Butt MD) PSVT (paroxysmal supraventricular tachycardia) (Chronic) I47.1 Hyperlipidemia (Chronic) E78.5 Essential hypertension (Chronic) I10 Non-compliance (Chronic) Z91.19 Normochromic normocytic anemia (Chronic) D64.9 HGB normal in Apr 2018 Type 2 diabetes mellitus with diabetic polyneuropathy (Chronic) E11.42 Lower extremity edema (Chronic) R60.0 Spina bifida aperta of lumbar spine (Chronic) Q05.7 s/p surgery x 2 weakness and numbness in legs neurogenic bladder and frequent UTIs Morbid obesity with BMI of 40.0-44.9, adult (Chronic) E66.01, Z68.41 Anxiety and depression F41.9, F32.9 Arthritis M19.90 Chronic back pain M54.9, G89.29 Chronic nausea R11.0 Constipation K59.00 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 Will follow, no need yet for cysto retros etc. 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 Neurogenic bladder N31.9 Neurogenic bowel K59.2 Panic attacks F41.0 Thyroid cyst E04.1 UTI (urinary tract infection) N39.0 Uninodular goiter E04.1 Cellulitis of left lower extremity L03.116 Diabetic ulcer of left heel with fat layer exposed E11.621, L97.422 Infection of bladder catheter T83.510A Sepsis A41.9 UTI (urinary tract infection) (Resolved) N39.0 Ulcer of left heel and midfoot with fat layer exposed L97.422 Allergies mushroom Allergy (Verified 02/12/20 14:40) Anaphylaxis peanut Allergy (Verified 02/12/20 14:40) Anaphylaxis Gadolinium-MRI Contrast Medium Adverse Reaction (Verified 02/12/20 14:40) Vomiting Latex, Natural Rubber Adverse Reaction (Verified 02/12/20 14:40) Rash Surgical History: Surgical History (Last Reviewed 01/14/20 @ 00:[address] Gen Butt MD) history insertion suprapubic catheter History of cholecystectomy Z90.49 History of dilation and curettage Z98.890 History of spinal surgery Z98.890 x 2 Hx of foot surgery Z98.890 Hx of ventral hernia repair Z98.890, Z87.19 S/P thyroid biopsy Onset Date: ~11/06/19 Z98.890 Status post gastric surgery Z98.890 - *Family History Maternal Family History: Family History (Last Reviewed 02/12/20 @ 17:42 by Megan Clark CERTIFIED SUBSTANCE ABUSE COUNSELOR, CERTIFIED SUBSTANCE ABUSE COUNSELOR-C) Mother CVA (cerebral vascular accident) Thyroid disorder Diabetes Hypertension Heart disease Hyperlipidemia Myocardial infarction, Onset Age: 54 Father Cancer Grandmother Cancer Paternal Family History: Family History (Last Reviewed 02/12/20 @ 17:42 by Megan Clark NP, CERTIFIED SUBSTANCE ABUSE COUNSELOR-C) Mother CVA (cerebral vascular accident) Thyroid disorder Diabetes Hypertension Heart disease Hyperlipidemia Myocardial infarction, Onset Age: 54 Father Cancer Grandmother Cancer Sibling Family History: Family History (Last Reviewed 02/12/20 @ 17:42 by Megan Clark NP, CERTIFIED SUBSTANCE ABUSE COUNSELOR-C) Mother CVA (cerebral vascular accident) Thyroid disorder Diabetes Hypertension Heart disease Hyperlipidemia Myocardial infarction, Onset Age: 54 Father Cancer Grandmother Cancer Review of Systems Constitutional: Reports: Anorexia, Chills, Fever, Malaise, Weakness, Fatigue. Denies: Night Sweats, Weight Change Eyes: Denies: Blurred vision, Cataracts, Conjunctivae Inflammation, Double vision, Drainage, Eyelid Inflammation, Pain, Redness, Vision Change HEENT: Denies: Difficulty Hearing, Difficulty Swallowing, Dysphasia, Ear Pain, Eye Pain, Head Aches, Nasal bleeding, Nasal Congestion, Post Nasal Drip, Sinus Congestion, Sinus Drainage, Sore Throat, Visual Changes Cardiovascular: Reports: Light Headedness - mild. Denies: Chest Pain, Chest Pressure, Chest Tightness, Edema, Heaviness, Orthopnea, Syncope Respiratory: Denies: Cough, Shortness of Breath, Shortness of breath at rest, Shortness of breath upon exertion, Sputum production, Wheezing Gastrointestinal: Reports: Abdominal Pain, Constipation, Nausea, Vomiting. Denies: Diarrhea, Dyspepsia, Hematemesis, Hematochezia, Melena Genitourinary: Reports: - - Chronic suprapubic catheter, pt is having some LBP/flank pain. Denies: Dysuria, Frequency, Hematuria, Hesitancy, Incontinence, Nocturia, Retention, Urgency Musculoskeletal: Reports: Back Pain. Denies: Joint Pain, Joint stiffness, Joint swelling, Joint Tenderness, Neck Pain Skin: Reports: Wounds - erythema post L calf, wound L great toe on plantar surface with intermittent depth and no drainage, L medial heel with blood blister. Denies: Dryness, Jaundice, Lesions, Pruritis, Rash, Skin Changes Neurological: Reports: Numbness - chronic. Denies: Focal weakness, Tingling Psychiatric: Denies: Anxiety, Depression Endocrine: Denies: Change in Body Habitus, Heat/ Cold Intolerance, Polydipsia, Polyuria Hematologic/ Lymphatic: Denies: Adenopathy, Anemia, Easy Bruising, Easy Bleeding VTE Information - Inpt Only VTE Present on Admission: No VTE Mechan Device Prophylaxis: None VTE Pharm Prophylaxis ordered?: Yes - Physical Exam Vitals/I&O's: Vital Signs Temp Pulse Resp BP Pulse Ox 100.0 F H 93 15 90/52 L 95 02/12/20 17:32 02/12/20 17:32 02/12/20 17:32 02/12/20 17:32 02/12/20 17:32 Oxygen Delivery Method Room Air Weight: 103.7 kg Body Mass Index (BMI) 41.8 Finger Stick Blood Glucose 297 Intake and Output for Last 24 Hours 02/10/20 02/11/20 02/12/20 23:59 23:59 23:59 Intake Total 200 / 200 Balance 200 / 200 General: Alert, Oriented x3, Cooperative, No apparent distress, Well developed, Well nourished, - - pt lying in bed, nsg at bedside HEENT: Atraumatic, PERRLA, EOMI, Normocephalic, EAC Clear Oral: Moist Mucosa, No Gingival or Mucosal Lesions/ Ulcerations, - - good dentition Neck: Supple, No JVD, Negative Carotid Bruits, Negative Hepatojugular Reflux, No Nodes, Trachea Midline, Thyroid Normal Size and Texture Lungs: Clear to auscultation, Normal air movement, No rhonchi, No wheeze, No rales Cardiovascular: Regular rate, Regular Rhythm, Normal S1, Normal S2, No murmurs, No Ectopic Activity, No rub noted, No Gallop Abdomen: Bowel Sounds Present, Soft, Non Tender, Non-Distended, - - Suprapubic catheter in place, no erythema around suprapubic catheter Extremities: No clubbing, No cyanosis, No edema, Capillary Refill Less than 3 Seconds, No Calf Tenderness, Peripheral Pulses Normal Skin: No rashes, No breakdown Musculoskeletal: No Tenderness to Palpation of Joints or Extremities, No Muscle Wasting Lymphatic: No Cervical, Supraclavicular, or Inguinal Adenopathy Neurological: Cranial nerves II-XII grossly intact, - - decrease sensation B feet Psych/Mental Status: Normal Affect, Appropriate, Alert and oriented to time, place, person, mood and affect Laboratory Results 02/12/20 15:25: COVID-19 (MALIK) Not Detected 02/12/20 15:47: WBC 14.6 H, RBC 4.23, Hgb 12.7, Hct 37.4, MCV 88.4, MCH 30.0, MCHC 34.0, RDW Std Deviation 41.3, RDW Coeff of Claude 12.7, Plt Count 183, MPV 10.8, Immature Gran % (Auto) 1.000 H, Neut % (Auto) 88.1 H, Lymph % (Auto) 4.9 L, [place] % (Auto) 5.6, Eos % (Auto) 0.1, Baso % (Auto) 0.3, Absolute Neuts (auto) 12.9 H, Absolute Lymphs (auto) 0.71 L, Nucleated RBC % 0 02/12/20 15:47: Sodium 133 L, Potassium 4.0, Chloride 102, Carbon Dioxide 23.0, Anion Gap 8, BUN 8, Creatinine 0.97, Estim Creat Clear Calc 62.19, Est GFR (MDRD) Af Amer 83, Est GFR (MDRD) Non-Af 69, BUN/Creatinine Ratio 8.3 L, Glucose 257 H, Calcium 9.0 02/12/20 15:47: Lactic Acid 2.6 H* 02/12/20 16:05: Urine Color Yellow, Urine Clarity Clear, Urine pH 8.0, Ur Specific [place] 1.015, Urine Protein 100 H, Urine Glucose (UA) 1000 H, Urine Ketones 50 H, Urine Occult Blood 25 H, Urine Nitrite Negative, Urine Bilirubin Negative, Urine Urobilinogen 1 H, Ur Leukocyte Esterase 500 H, Urine RBC 0-5 SEEN, Urine WBC 25-50 SEEN, Ur Squamous Epith Cells 0-5 SEEN, Urine Bacteria 2+, Urine Mucus 0 SEEN Current Medications Sodium Chloride () 1,000 mls @ 150 mls/hr IV .Q6H40M DERIAN Last Infusion: 02/12/20 17:20 Dose: 0 mls/hr Documented by: Sodium Chloride () 1,000 mls @ 999 mls/hr IV .Q1H1M DERIAN; Protocol Stop: 02/12/20 20:10 Last Admin: 02/12/20 17:20 Dose: 999 mls/hr Documented by: Vancomycin HCl 1,500 mg/ (Sodium Chloride) 530 mls @ 250 mls/hr IV X1 ONE Stop: 02/12/20 19:37 Last Admin: 02/12/20 18:15 Dose: 250 mls/hr Documented by: Insulin Human Lispro (Humalog Kwikpen (Bkc)) 0 unit SC ACHS DERIAN; Protocol Sodium Chloride () 10 - 40 ml IV UD PRN PRN Reason: SALINE FLUSH Assessment/Plan I agree with the above and and the following is a reflection of my independent history and PE. ASSESSMENT Severe Sepsis 2/2 ? etiology L LE Cellulitis and Great Toe Ulcer H/O UTI with pyelonephritis in a pt with chronic suprapubic catheter Recent COVID 19 infection (01/22/2020) DM-2 Uncontrolled HPL HTN H/O Migraines on Propranolol Depression/Anxiety Chronic Constipation PLAN -cellulitis vs LE wound infection vs UTI/Pyelo -start Vanc and Zosyn -blood and urine cx pending -IVF resuscitation per protocol -cycle lactates -PCT -US of kidneys -DM Diet -Lantus as ordered -SSI -hold BP meds/propranolol for now -continue statin -consult ID -consult ID -consult CCM -wound care consult Inpatient E&M: [id number] Init Hosp L3
[2020-02-12 19:59] LABS: Reflex Lactate? Y
--- NOTE | 2020-02-12 20:08 | PCM.RX.CS ---
Consult Pharmacy has been consulted to manage selected antiobiotic: Vancomycin Type of Consult: New Labs: Sodium 133 mmol/L (136-145) L 02/12/20 15:47 Potassium 4.0 mmol/L (3.5-5.1) 02/12/20 15:47 Chloride 102 mmol/L (98-107) 02/12/20 15:47 Carbon Dioxide 23.0 mmol/L (21.0-32.0) 02/12/20 15:47 Anion Gap 8 (5-15) 02/12/20 15:47 BUN 8 mg/dL (7-18) 02/12/20 15:47 Creatinine 0.97 mg/dL (0.55-1.02) 02/12/20 15:47 Est GFR (MDRD) Af Amer 83 mL/min (>60) 02/12/20 15:47 Est GFR (MDRD) Non-Af 69 mL/min (>60) 02/12/20 15:47 BUN/Creatinine Ratio 8.3 RATIO (10-20) L 02/12/20 15:47 Glucose 257 mg/dL (74-106) H 02/12/20 15:47 Goal Trough: 15-20 mcg/mL Pharmacy Plan for Drug Dosing: NEW START IV VANCOMYCIN Consulting Physician: Dr. Elsie Cordero Indication: Sepsis Goal Trough: 15-20 SrCr: 0.97 CrCl: 89 mL/min (using AdjBW 71.3kg) Comments: Pt had initial dose in the ER of 1500mg IV x1 02/11 @1815. Hospitalist ordered a loading dose and high trough. Rather than giving a supplemental dose of 500mg, will opt to start scheduled dosing a few hours early (10hrs from ER dose). Cultures pending, trough prior to 4th dose per protocol. Vancomcyin Dose: 1750mg IV Q12hrs to start 02/13/20 @0400 (10hrs from ED dose) Pending Level: 02/14/20 @0330 (Prior to 4th total dose per protocol) Pharmacy Service will continue to monitor and adjust dosing as required.
[2020-02-12 20:36] LABS: Lactic Acid 1.6 mmol/L (0.4-1.9)
[2020-02-12 20:52] LABS: Procalcitonin 0.14 ng/mL (0.00-0.09)
[2020-02-12] MEDS: Insulin Lispro 100 UNIT/ML INSULN.PEN SC (21:18)
[2020-02-12] MEDS: 0.9% Normal Saline 1,000 ML 100 ML IV (21:19)
[2020-02-12] MEDS: Polyethylene Glycol 3350 17 GM PACKET PO (21:19)
[2020-02-12] MEDS: Atorvastatin Calcium 20 MG Tablet PO (21:19)
[2020-02-12] MEDS: Acetaminophen 325 MG Tablet 650 MG PO (21:20)
[2020-02-12 22:00] LABS: Bedside Glucose 197 mg/dL (70-110)
[2020-02-13] VITALS (20 sets, daily range): BP systolic 92–122; BP diastolic 44–65; PULSE 67–79; RESP 13–19; TEMP 36.6–37.1; O2SAT 93–100
[2020-02-13] MEDS: oxyCODONE 5 MG Tablet PO ×4 (00:01→22:25)
[2020-02-13 04:10] LABS: ALB/GLOB Ratio 0.7 RATIO (0.9-2.4); AST(SGOT) 51 U/L (15-37); Absolute Lymphocyte Count 1.58 X10^3/uL (0.83-4.51); Absolute Neutrophil Count 5.5 X10^3/uL (2.0-7.7); Alanine Aminotransfer ALT/SGPT 63 U/L (13-56); Albumin, Serum 2.7 g/dL (3.2-5.0); Alkaline Phosphatase 61 U/L (45-117); Anion Gap 5 (5-15); BUN 6 mg/dL (7-18); BUN/Creat Ratio 7.4 RATIO (10-20); Basophil# 0.03 X10^3/uL; Basophil% 0.4 % (0-1); Calcium,Total 7.5 mg/dL (8.5-10.1); Chloride 110 mmol/L (98-107); Creatinine, Serum 0.82 mg/dL (0.55-1.02); EST Glomerular Filtration Rate 83 mL/min (>60); Eosinophil# 0.03 X10^3/uL; Eosinophils% 0.4 % (0-5); Est Glom Filt Rate - Afr Amer 101 mL/min (>60); Estimated Creatinine Clearance 73.57 ml/min; Globulin 3.9 g/dL (2.2-4.2); Glucose 148 mg/dL (74-106); Hematocrit 34.4 % (37-47); Hemoglobin 11.3 g/dL (12.0-15.0); Lymphocyte # 1.58 X10^3/ul (4.0); Lymphocyte % 19.8 % (19-41); Magnesium 1.6 mg/dL (1.6-2.6); Mean Corp Hgb Conc 32.8 g/dL (32-36); Mean Corpuscular Hgb 30.4 pg (27.0-32.0); Mean Corpuscular Volume 92.5 fL (81-99); Mean Platelet Vol. 10.4 fl (6.2-12.0); Monocyte# 0.74 X10^3/uL; Monocyte% 9.3 % (0-10); NRBC Flagged by Analyzer 0 % (0-5); Neutrophil # 5.51 X10^3/uL (2.7-7.7); Neutrophil % 69.2 % (47-70); Phosphorus 2.7 mg/dL (2.5-4.9); Platelet Count 161 K/mm3 (150-450); Potassium 3.6 mmol/L (3.5-5.1); Protein, Total 6.6 g/dL (6.4-8.2); RBC Distribution Width CV 13.1 % (11.6-14.6); RBC Distribution Width SD 44.1 fl (35.1-43.9); Red Blood Count 3.72 M/mm3 (4.2-5.4); Sodium Level 140 mmol/L (136-145)
--- NOTE | 2020-02-13 05:58 | VDLE_ITS ---
Reason For Study: swelling RIGHT LEFT GSV is normal. GSV is normal. CFV is compressible, spontaneous, phasic, CFV is compressible, spontaneous, phasic, competent and demonstrates normal competent, and demonstrates normal augmentation. augmentation. FV is compressible, spontaneous, phasic, FV is compressible, spontaneous, phasic, competent and demonstrates normal competent and demonstrates normal augmentation. augmentation. POP V is compressible, spontaneous, phasic, POP V is compressible, spontaneous, phasic, competent and demonstrates normal competent and demonstrates normal augmentation. augmentation. T/P Trunk is compressible. T/P Trunk is compressible. PTV is compressible. PTV is compressible. RT PerV is compressible. LT PerV is compressible. Procedure Exam performed portable in patient room. The exam was diagnostic. A preliminary report was called and/or faxed to [facility]. Interpretation Summary No evidence for acute deep venous thrombosis bilateral lower extremities with patent and compressible bilateral great saphenous veins. Ordering Physician: Nabeel Garces Performed By: Eber Chambers RVT
--- NOTE | 2020-02-13 06:49 | CON.PCM_ITS ---
Problem List (1) Urinary tract infection Status: Suspected Qualifiers: Urinary tract infection type: catheter-associated UTI Indwelling urinary catheter type: indwelling urethral catheter Encounter type: initial encounter Qualified Code(s): T83.511A - Infection and inflammatory reaction due to indwelling urethral catheter, initial encounter; N39.0 - Urinary tract infection, site not specified (2) Cellulitis Status: Acute Qualifiers: Site of cellulitis: extremity Site of cellulitis of extremity: lower extremity Laterality: left Qualified Code(s): L03.116 - Cellulitis of left lower limb (3) Severe sepsis Status: Acute (4) Diabetic foot infection Status: Acute (5) PSVT (paroxysmal supraventricular tachycardia) Status: Chronic (6) Hyperlipidemia Status: Chronic (7) Essential hypertension Status: Chronic (8) Non-compliance Status: Chronic (9) Normochromic normocytic anemia Status: Chronic Comment: HGB normal in Apr 2018 (10) Type 2 diabetes mellitus with diabetic polyneuropathy Status: Chronic (11) Lower extremity edema Status: Chronic (12) Spina bifida aperta of lumbar spine Status: Chronic Comment: s/p surgery x 2 weakness and numbness in legs neurogenic bladder and frequent UTIs (13) Morbid obesity with BMI of 40.0-44.9, adult Status: Chronic Reason for Consult Date of Consultation: 02/13/20 Reason for Consultation: Severe sepsis History of Present Illness: The patient is a 39 year old F, with past medical history listed below and well- known for multiple admissions, who presented was [facility] on 02/12/2020 secondary to fever, chills, body aches and vomiting. Patient was recently diagnosed with COVID-19 in January 21 and states that her symptoms had completely resolved prior to the onset of these findings yesterday. Patient has had nausea and vomiting and was unable to keep Tylenol down to control of fever. Patient does have a known wound on her left foot reportedly was also recently bleeding. In the ER, patient was given Zofran and Tylenol for symptom control. Laboratory work-up showed a significant leukocytosis at 14.6, but normal renal function. Glucose was elevated at 257 with a lactate of 2.6. Urinalysis did show leukocyte esterase and WBCs. Patient was given 30 cc/kg IV fluid bolus. [facility] does have a suprapubic catheter and nursing had reported some exudate. Given repeated infections in the past, patient was treated with vancomycin and Zosyn and admitted to the intensive care unit. Overnight, patient has remained hemodynamically stable. Patient is not requiring any supplemental oxygen. Patient reports that she has some discomfort of her feet, but chronically does not feel them very well. Patient is not reporting any further nausea and is open to attempting breakfast. Patient reportedly states that her has been following her feet and they were fine until yesterday. Patient does have a history of spina bifida with associated complications and has been in the hospital frequently. Patient is unclear if she has had any resistant organisms in the past. Review of systems otherwise negative from a constitutional, HEENT, respiratory, cardiovascular, GI, genitourinary, musculoskeletal, skin, neurologic, psychiatric and hematologic system unless stated above. Past Medical History Past Medical History (Chronic Problems): Chronic Problems (Last Reviewed 01/14/20 @ 00:[address] Gen Butt MD) PSVT (paroxysmal supraventricular tachycardia) (Chronic) Hyperlipidemia (Chronic) Essential hypertension (Chronic) Non-compliance (Chronic) Normochromic normocytic anemia (Chronic) HGB normal in Apr 2018 Type 2 diabetes mellitus with diabetic polyneuropathy (Chronic) Lower extremity edema (Chronic) Spina bifida aperta of lumbar spine (Chronic) s/p surgery x 2 weakness and numbness in legs neurogenic bladder and frequent UTIs Morbid obesity with BMI of 40.0-44.9, adult (Chronic) Medical History: Medical History (Last Reviewed 01/14/20 @ 00:[address] Gen Butt MD) PSVT (paroxysmal supraventricular tachycardia) (Chronic) I47.1 Hyperlipidemia (Chronic) E78.5 Essential hypertension (Chronic) I10 Non-compliance (Chronic) Z91.19 Normochromic normocytic anemia (Chronic) D64.9 HGB normal in Apr 2018 Type 2 diabetes mellitus with diabetic polyneuropathy (Chronic) E11.42 Lower extremity edema (Chronic) R60.0 Spina bifida aperta of lumbar spine (Chronic) Q05.7 s/p surgery x 2 weakness and numbness in legs neurogenic bladder and frequent UTIs Morbid obesity with BMI of 40.0-44.9, adult (Chronic) E66.01, Z68.41 Anxiety and depression F41.9, F32.9 Arthritis M19.90 Chronic back pain M54.9, G89.29 Chronic nausea R11.0 Constipation K59.00 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 Will follow, no need yet for cysto retros etc. 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 Neurogenic bladder N31.9 Neurogenic bowel K59.2 Panic attacks F41.0 Thyroid cyst E04.1 UTI (urinary tract infection) N39.0 Uninodular goiter E04.1 Cellulitis of left lower extremity L03.116 Diabetic ulcer of left heel with fat layer exposed E11.621, L97.422 Infection of bladder catheter T83.510A Sepsis A41.9 UTI (urinary tract infection) (Resolved) N39.0 Ulcer of left heel and midfoot with fat layer exposed L97.422 Allergies mushroom Allergy (Verified 02/12/20 14:40) Anaphylaxis peanut Allergy (Verified 02/12/20 14:40) Anaphylaxis Gadolinium-MRI Contrast Medium Adverse Reaction (Verified 02/12/20 14:40) Vomiting Latex, Natural Rubber Adverse Reaction (Verified 02/12/20 14:40) Rash Home Medications: Ambulatory Orders Medication Instructions Recorded Furosemide [Lasix] 20 mg PO DAILY@1700 08/28/18 Furosemide [Lasix] 40 mg PO BREAKFAST 04/05/19 traZODone [Desyrel] 50 mg PO QHS 07/08/19 insulin glargine 100 unit/mL (3 15 unit SC QHS 11/01/19 mL) subcutaneous pen lisinopril 2.5 mg tablet 2.5 mg PO DAILY 11/01/19 atorvastatin 20 mg tablet 20 mg PO QHS 11/12/19 oxybutynin chloride 15 mg 15 mg PO DAILY 11/12/19 tablet,extended release 24 hr Propranolol HCl 10 mg PO BID 01/13/20 Albuterol Inhaler [Ventolin Hfa] 1 - 2 puff INHALATION Q4H PRN PRN 01/22/20 #1 inhaler Acetaminophen [Tylenol Extra 1,000 mg PO TID PRN PRN 02/12/20 Strength] Surgical History: Surgical History (Last Reviewed 01/14/20 @ 00:[address] Gen Butt MD) history insertion suprapubic catheter History of cholecystectomy Z90.49 History of dilation and curettage Z98.890 History of spinal surgery Z98.890 x 2 Hx of foot surgery Z98.890 Hx of ventral hernia repair Z98.890, Z87.19 S/P thyroid biopsy Onset Date: ~11/06/19 Z98.890 Status post gastric surgery Z98.890 Surgical History: cholecystectomy, - - D&C, lumbar back surgery x2, foot surgery x2, abdominal stoma, ventral hernia repair. 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 Lives: Spouse/ Significant Other Smoking Status: Never smoker Tobacco Use: Non-smoker, Secondhand Alcohol: None Drugs: None - *Family History Maternal Family History: Family History (Last Reviewed 02/12/20 @ 17:42 by Megan Clark NP, SENIOR CLINICAL STUDY MANAGER-C) Mother CVA (cerebral vascular accident) Thyroid disorder Diabetes Hypertension Heart disease Hyperlipidemia Myocardial infarction, Onset Age: 54 Father Cancer Grandmother Cancer History Items: Cancer, Diabetes, Hypertension, Stroke Paternal Family History: Family History (Last Reviewed 02/12/20 @ 17:42 by Megan Clark NP, SENIOR CLINICAL STUDY MANAGER-C) Mother CVA (cerebral vascular accident) Thyroid disorder Diabetes Hypertension Heart disease Hyperlipidemia Myocardial infarction, Onset Age: 54 Father Cancer Grandmother Cancer History Items: Cancer Sibling Family History: Family History (Last Reviewed 02/12/20 @ 17:42 by Megan Clark NP, SENIOR CLINICAL STUDY MANAGER-C) Mother CVA (cerebral vascular accident) Thyroid disorder Diabetes Hypertension Heart disease Hyperlipidemia Myocardial infarction, Onset Age: 54 Father Cancer Grandmother Cancer History Items: - - Denies known sibling medical history. Review of Systems Comment: See HPI Patient Problems: Active and Suspected Problems (Last Reviewed 01/14/20 @ 00:[address] Gen Butt MD) Severe sepsis (Acute) Diabetic foot infection (Acute) Objective: Chest x-ray was personally reviewed and shows no acute infiltrate. Patient does have low lung volumes noted, but this appears similar to previous imaging. Patient has had a stress echocardiogram in November showing an EF of 60% with no wall motion abnormalities. Patient has never had a pulmonary function test. Patient has multiple previous cultures that are positive for staph aureus, Serratia, and stenotrophomonas. - Physical Exam Vitals/I&O's: Vital Signs Temp Pulse Resp BP Pulse Ox 36.7 C 72 15 109/45 L 99 02/13/20 06:00 02/13/20 06:00 02/13/20 06:00 02/13/20 06:00 02/13/20 06:00 Oxygen Delivery Method Room Air Weight: 106.8 kg Body Mass Index (BMI) 41.8 Finger Stick Blood Glucose 297 Intake and Output for Last 24 Hours 02/11/20 02/12/20 02/13/20 23:59 23:59 23:59 Intake Total 3830 / 3830 805 / 805 Output Total 400 / 900 900 / 900 Balance 3430 / 2930 -95 / -95 General: Alert, Oriented x3, Cooperative, No apparent distress, Well developed, Well nourished, - - Morbidly obese. Speaking in full sentences. HEENT: Atraumatic, PERRLA, EOMI, Normocephalic, - - No scleral icterus or injection noted Oral: Moist Mucosa, No Gingival or Mucosal Lesions/ Ulcerations, - - Crowded posterior pharynx Neck: Supple, No JVD, No Nodes, Trachea Midline Lungs: No rhonchi, No wheeze, No rales, Diminished, - - Symmetric expansion. No dullness to percussion. Cardiovascular: Normal S1, Normal S2, No murmurs, No rub noted, No Gallop Abdomen: Bowel Sounds Present, Soft, Non Tender, Non-Distended, - - Suprapubic catheter with mild surrounding erythema Extremities: No clubbing, No cyanosis, Edema Skin: Ulcer/ Wound - Left great toe with ecchymotic area at the heel, Rash Present - Left lower extremity with regression per outline Musculoskeletal: No Tenderness to Palpation of Joints or Extremities Lymphatic: No Cervical, Supraclavicular, or Inguinal Adenopathy Neurological: Cranial nerves II-XII grossly intact, Neuro grossly intact - Some decreased sensation of the lower extremities Psych/Mental Status: Alert and oriented to time, place, person, mood and affect Laboratory Results 02/12/20 15:25: COVID-19 (MALIK) Not Detected 02/12/20 15:47: WBC 14.6 H, RBC 4.23, Hgb 12.7, Hct 37.4, MCV 88.4, MCH 30.0, MCHC 34.0, RDW Std Deviation 41.3, RDW Coeff of Claude 12.7, Plt Count 183, MPV 10.8, Immature Gran % (Auto) 1.000 H, Neut % (Auto) 88.1 H, Lymph % (Auto) 4.9 L , Wilson % (Auto) 5.6, Eos % (Auto) 0.1, Baso % (Auto) 0.3, Absolute Neuts (auto) 12.9 H, Absolute Lymphs (auto) 0.71 L, Nucleated RBC % 0 02/12/20 15:47: Sodium 133 L, Potassium 4.0, Chloride 102, Carbon Dioxide 23.0, Anion Gap 8, BUN 8, Creatinine 0.97, Estim Creat Clear Calc 62.19, Est GFR (MDRD) Af Amer 83, Est GFR (MDRD) Non-Af 69, BUN/Creatinine Ratio 8.3 L, Glucose 257 H, Calcium 9.0 02/12/20 15:47: Lactic Acid 2.6 H* 02/12/20 16:05: Urine Color Yellow, Urine Clarity Clear, Urine pH 8.0, Ur Specific [place] 1.015, Urine Protein 100 H, Urine Glucose (UA) 1000 H, Urine Ketones 50 H, Urine Occult Blood 25 H, Urine Nitrite Negative, Urine Bilirubin Negative, Urine Urobilinogen 1 H, Ur Leukocyte Esterase 500 H, Urine RBC 0-5 SEEN, Urine WBC 25-50 SEEN, Ur Squamous Epith Cells 0-5 SEEN, Urine Bacteria 2+, Urine Mucus 0 SEEN 02/12/20 19:55: Lactic Acid 1.6 02/12/20 19:55: Procalcitonin 0.14 H 02/12/20 21:11: POC Glucose 197 H 02/13/20 03:45: WBC 8.0, RBC 3.72 L, Hgb 11.3 L, Hct 34.4 L, MCV 92.5, MCH 30.4, MCHC 32.8, RDW Std Deviation 44.1 H, RDW Coeff of Claude 13.1, Plt Count 161, MPV 10.4, Immature Gran % (Auto) 0.900, Neut % (Auto) 69.2, Lymph % (Auto) 19.8, Wilson % (Auto) 9.3, Eos % (Auto) 0.4, Baso % (Auto) 0.4, Absolute Neuts (auto) 5.5, Absolute Lymphs (auto) 1.58, Nucleated RBC % 0 02/13/20 03:45: Sodium 140, Potassium 3.6, Chloride 110 H, Carbon Dioxide 25.0, Anion Gap 5, BUN 6 L, Creatinine 0.82, Estim Creat Clear Calc 73.57, Est GFR (MDRD) Af Amer 101, Est GFR (MDRD) Non-Af 83, BUN/Creatinine Ratio 7.4 L, Glucose 148 H, Calcium 7.5 L, Phosphorus 2.7, Magnesium 1.6, Total Bilirubin 0.30, AST 51 H, ALT 63 H, Alkaline Phosphatase 61, Total Protein 6.6, Albumin 2.7 L, Globulin 3.9, Albumin/Globulin Ratio 0.7 L Current Medications Acetaminophen (Tylenol) 650 mg PO Q6H PRN PRN PRN Reason: Pain Score 1-10/Temp > 100.7 F Last Admin: 02/12/20 21:20 Dose: 650 mg Documented by: Al Hydroxide/Mg Hydroxide (Mylanta Ii) 30 ml PO Q6H PRN PRN PRN Reason: Gastric Burning Atorvastatin Calcium (Lipitor) 20 mg PO QHS [facility] Last Admin: 02/12/20 21:19 Dose: 20 mg Documented by: Enoxaparin Sodium (Lovenox) 40 mg SC BID [facility] Last Admin: 02/12/20 21:20 Dose: Not Given Documented by: Sodium Chloride () 1,000 mls @ 100 mls/hr IV .Q10H [facility] Last Admin: 02/13/20 04:57 Dose: Not Given Documented by: Piperacillin Sod/Tazobactam (Sod 3.375 gm/ Sodium Chloride) 50 mls @ 12.5 mls/hr IV Q8 [facility] Last Admin: 02/13/20 06:07 Dose: 12.5 mls/hr Documented by: Vancomycin IV Pharmacy to Dose (1 ea/ Sodium Chloride) 500 mls @ 250 mls/hr IV PRN PRN; Protocol PRN Reason: Rx to Dose Vancomycin HCl 1,750 mg/ (Sodium Chloride) 535 mls @ 250 mls/hr IV Q12H [facility] Last Infusion: 02/13/20 06:29 Dose: Infused Documented by: Insulin Glargine (Lantus ([facility])) 15 units SC QHS [facility] Last Admin: 02/12/20 21:18 Dose: 15 units Documented by: Insulin Human Lispro (Humalog Kwikpen ([facility])) 0 unit SC ACHS [facility]; Protocol Last Admin: 02/12/20 21:18 Dose: 2 units Documented by: Melatonin (Melatonin) 3 mg PO QHS PRN PRN PRN Reason: INSOMNIA Ondansetron HCl (Zofran) 4 mg IV Q8H PRN PRN PRN Reason: NAUSEA/VOMITING Oxycodone HCl (Oxyir) 5 mg PO Q4H PRN PRN PRN Reason: Pain Score 4-10/10 Last Admin: 02/13/20 06:14 Dose: 5 mg Documented by: Polyethylene Glycol (Miralax) 17 gm PO BID [facility] Last Admin: 02/12/20 21:19 Dose: 17 gm Documented by: Sodium Chloride () 10 - 40 ml IV UD PRN PRN Reason: SALINE FLUSH Tolterodine Tartrate (Detrol La) 4 mg PO DAILY [facility] Clinical Impression(s) from Imaging Studies Foot X-Ray 02/12/20 15:05 IMPRESSION: No fracture or evidence of osteomyelitis Electronically Signed: Rich Rucker MD at 16:36 EDT , Service support , Chest X-Ray 02/12/20 15:44 IMPRESSION: Normal x-ray examination of the chest. Electronically Signed: Rich Rucker MD at 16:30 EDT , Service support , Assessment/Plan Active and Suspected Problems (Last Reviewed 01/14/20 @ 00:[address] Gen Butt MD) Severe sepsis (Acute) Diabetic foot infection (Acute) RECOMMENDATIONS: 1. Continue empiric antibiotics awaiting infectious disease recommendations 2. Podiatry to evaluate great toe ulcer 3. Obtain lower extremity Doppler to evaluate for DVT 4. Reinitiate baseline medications in a stepwise fashion 5. Okay to leave the intensive care unit from my perspective 6. Hemodynamically stable on room air. Will sign off from a critical care perspective IMPRESSIONS: 1. Severe sepsis secondary to cellulitis versus UTI Patient does have left lower extremity cellulitis on exam along with a suprapubic catheter with some surrounding erythema. Cultures are currently pending. Infectious disease has been consulted along with podiatry for lower extremity ulcers. Patient has responded well to initial sepsis therapy and can likely be transferred from the intensive care unit. Patient does have a recent COVID-19 infection and there would be some concern for possible DVT given the hypercoagulable properties of this infection. Will obtain a lower extremity Doppler. Otherwise, patient likely okay to leave the intensive care unit. 2. Great toe infection/spina bifida with lymphedema Podiatry has been consulted. Patient with recurrent infections in the past. Await culture results. Agree with broad-spectrum antibiotics. Patient may require evaluation for osteomyelitis. Patient also has neurogenic bladder with a chronic suprapubic catheter. 3. Morbid obesity/history of migraine/type 2 diabetes mellitus uncontrolled/hyperlipidemia/chronic constipation Complicates care, management, recovery and prognosis. Likely okay to reinitiate home medications in a stepwise fashion. Patient will need to be followed closely for diabetic complications given probable elevation due to acute status. Patient is somewhat limited in weight loss options given spina bifida Inpatient E&M: 49216 Init Hosp L2
[2020-02-13] MEDS: 0.9% Normal Saline 1,000 ML 100 ML IV ×2 (07:38→13:49)
[2020-02-13] MEDS: Tolterodine Tartrate 4 MG CAP.SA PO (10:04)
[2020-02-13] MEDS: Acetaminophen 325 MG Tablet 650 MG PO (10:06)
--- NOTE | 2020-02-13 10:31 | MRI_ITS ---
STUDY: MRI LEFT FOREFOOT WITHOUT CONTRAST REASON FOR EXAM: Female, 39 years old. L great toe wound, fever, h/o diabetic TECHNIQUE: Standardized fat and water weighted pulse sequences were obtained in all 3 orthogonal planes. COMPARISON: Left foot x-ray dated February 12, 2020 FINDINGS: Diffuse marrow edema is present in the great toe and very mild cortical thinning is present on the plantar aspect of the head of the distal phalanx of the great toe compatible with mild osteomyelitis. Minimal subcutaneous edema is present in the surrounding region. No additional foci of infection no soft tissue abscess. No occult fracture. Distal fifth metatarsal osteotomy defect and mild postoperative scarring in the surgical bed. Normal metatarsophalangeal joint of the hallux. Normal tibial and fibular sesamoids, with normal sesamoids-first metatarsal articulations. Normal interphalangeal joint of the hallux. Normal proximal and distal phalanges of the great toe. Normal medial and lateral heads of the flexor hallucis brevis tendons. Normal flexor and extensor hallucis longus tendons. Normal second through fifth metatarsophalangeal (MTP) joints. Normal interphalangeal joints of the second through fifth toes. Normal proximal, middle and distal phalanges of the second through fifth toes. Normal first through fourth intermetatarsal spaces. Normal flexor and extensor tendons of the second through fifth toes. Normal visualized metatarsi. There is diffuse atrophy of the intrinsic muscles of the forefoot consistent with a peripheral neuropathy. MRI/Lower Ext/No Jt/w/o IMPRESSION: 1. Mild osteomyelitis on the plantar aspect of the head of the distal phalanges of the great toe. Electronically Signed: Rich Rucker MD at 16:16 EDT , Service support ,
--- NOTE | 2020-02-13 10:33 | CON.PCM_ITS ---
Problem List (1) Severe sepsis Status: Acute Reason for Consult: sepsis Consulted by: Dr. Cordero History of Present Illness: The patient is a 39 year old F with spina bifida, limited sensation in her body, presented with sudden onset yesterday of fever, chills, n/v. No unusual foods, no travel, no sick contacts. Had covid at end of December but has recovered completely. Has some intermittent drainage from suprapubic catheter. Has had wound on L 1st toe with intermittent bleeding. Came to ED, developed some diffuse cramping abd pain. Started on vanc/zosyn, admitted to icu, feeling better today. Full ROS performed and neg except as noted above. - Medical History Past Medical History (Chronic Problems): Chronic Problems (Last Reviewed 01/14/20 @ 00:[address] Gen Butt MD) PSVT (paroxysmal supraventricular tachycardia) (Chronic) Hyperlipidemia (Chronic) Essential hypertension (Chronic) Non-compliance (Chronic) Normochromic normocytic anemia (Chronic) HGB normal in Apr 2018 Type 2 diabetes mellitus with diabetic polyneuropathy (Chronic) Lower extremity edema (Chronic) Spina bifida aperta of lumbar spine (Chronic) s/p surgery x 2 weakness and numbness in legs neurogenic bladder and frequent UTIs Morbid obesity with BMI of 40.0-44.9, adult (Chronic) Allergies/Adverse Reactions: Allergies mushroom Allergy (Verified 02/12/20 14:40) Anaphylaxis peanut Allergy (Verified 02/12/20 14:40) Anaphylaxis Gadolinium-MRI Contrast Medium Adverse Reaction (Verified 02/12/20 14:40) Vomiting Latex, Natural Rubber Adverse Reaction (Verified 02/12/20 14:40) Rash Home Medications: Ambulatory Orders Medication Instructions Recorded Furosemide [Lasix] 20 mg PO DAILY@1700 08/28/18 Furosemide [Lasix] 40 mg PO BREAKFAST 04/05/19 traZODone [Desyrel] 50 mg PO QHS 07/08/19 insulin glargine 100 unit/mL (3 15 unit SC QHS 11/01/19 mL) subcutaneous pen lisinopril 2.5 mg tablet 2.5 mg PO DAILY 11/01/19 atorvastatin 20 mg tablet 20 mg PO QHS 11/12/19 oxybutynin chloride 15 mg 15 mg PO DAILY 11/12/19 tablet,extended release 24 hr Propranolol HCl 10 mg PO BID 01/13/20 Albuterol Inhaler [Ventolin Hfa] 1 - 2 puff INHALATION Q4H PRN PRN 01/22/20 #1 inhaler Acetaminophen [Tylenol Extra 1,000 mg PO TID PRN PRN 02/12/20 Strength] - Social History SMOKING STATUS:: Never smoker Vital Signs Temp Pulse Resp BP Pulse Ox 98.8 F 74 13 94/64 100 02/13/20 08:00 02/13/20 10:00 02/13/20 10:00 02/13/20 10:00 02/13/20 10:00 Oxygen Delivery Method Room Air Weight: 106.8 kg Body Mass Index (BMI) 41.8 Finger Stick Blood Glucose 297 Laboratory Tests Past 24 Hrs 02/12/20 02/12/20 02/12/20 15:25 15:47 15:47 WBC 14.6 H RBC 4.23 Hgb 12.7 Hct 37.4 MCV 88.4 MCH 30.0 MCHC 34.0 RDW Std Deviation 41.3 RDW Coeff of Claude 12.7 Plt Count 183 MPV 10.8 Immature Gran % (Auto) 1.000 H Neut % (Auto) 88.1 H Lymph % (Auto) 4.9 L Phillips % (Auto) 5.6 Eos % (Auto) 0.1 Baso % (Auto) 0.3 Absolute Neuts (auto) 12.9 H Absolute Lymphs (auto) 0.71 L Nucleated RBC % 0 Sodium 133 L Potassium 4.0 Chloride 102 Carbon Dioxide 23.0 Anion Gap 8 BUN 8 Creatinine 0.97 Estim Creat Clear Calc 62.19 Est GFR (MDRD) Af Amer 83 Est GFR (MDRD) Non-Af 69 BUN/Creatinine Ratio 8.3 L Glucose 257 H Lactic Acid Calcium 9.0 Phosphorus Magnesium Total Bilirubin AST ALT Alkaline Phosphatase Total Protein Albumin Globulin Albumin/Globulin Ratio Procalcitonin Urine Color Urine Clarity Urine pH Ur Specific [place] Urine Protein Urine Glucose (UA) Urine Ketones Urine Occult Blood Urine Nitrite Urine Bilirubin Urine Urobilinogen Ur Leukocyte Esterase Urine RBC Urine WBC Ur Squamous Epith Cells Urine Bacteria Urine Mucus COVID-19 (MALIK) Not Detected 02/12/20 02/12/20 02/12/20 15:47 16:05 19:55 WBC RBC Hgb Hct MCV MCH MCHC RDW Std Deviation RDW Coeff of Claude Plt Count MPV Immature Gran % (Auto) Neut % (Auto) Lymph % (Auto) Phillips % (Auto) Eos % (Auto) Baso % (Auto) Absolute Neuts (auto) Absolute Lymphs (auto) Nucleated RBC % Sodium Potassium Chloride Carbon Dioxide Anion Gap BUN Creatinine Estim Creat Clear Calc Est GFR (MDRD) Af Amer Est GFR (MDRD) Non-Af BUN/Creatinine Ratio Glucose Lactic Acid 2.6 H* 1.6 Calcium Phosphorus Magnesium Total Bilirubin AST ALT Alkaline Phosphatase Total Protein Albumin Globulin Albumin/Globulin Ratio Procalcitonin Urine Color Yellow Urine Clarity Clear Urine pH 8.0 Ur Specific [place] 1.015 Urine Protein 100 H Urine Glucose (UA) 1000 H Urine Ketones 50 H Urine Occult Blood 25 H Urine Nitrite Negative Urine Bilirubin Negative Urine Urobilinogen 1 H Ur Leukocyte Esterase 500 H Urine RBC 0-5 SEEN Urine WBC 25-50 SEEN Ur Squamous Epith Cells 0-5 SEEN Urine Bacteria 2+ Urine Mucus 0 SEEN COVID-19 (MALIK) 02/12/20 02/13/20 02/13/20 19:55 03:45 03:45 WBC 8.0 RBC 3.72 L Hgb 11.3 L Hct 34.4 L MCV 92.5 MCH 30.4 MCHC 32.8 RDW Std Deviation 44.1 H RDW Coeff of Claude 13.1 Plt Count 161 MPV 10.4 Immature Gran % (Auto) 0.900 Neut % (Auto) 69.2 Lymph % (Auto) 19.8 Phillips % (Auto) 9.3 Eos % (Auto) 0.4 Baso % (Auto) 0.4 Absolute Neuts (auto) 5.5 Absolute Lymphs (auto) 1.58 Nucleated RBC % 0 Sodium 140 Potassium 3.6 Chloride 110 H Carbon Dioxide 25.0 Anion Gap 5 BUN 6 L Creatinine 0.82 Estim Creat Clear Calc 73.57 Est GFR (MDRD) Af Amer 101 Est GFR (MDRD) Non-Af 83 BUN/Creatinine Ratio 7.4 L Glucose 148 H Lactic Acid Calcium 7.5 L Phosphorus 2.7 Magnesium 1.6 Total Bilirubin 0.30 AST 51 H ALT 63 H Alkaline Phosphatase 61 Total Protein 6.6 Albumin 2.7 L Globulin 3.9 Albumin/Globulin Ratio 0.7 L Procalcitonin 0.14 H Urine Color Urine Clarity Urine pH Ur Specific [place] Urine Protein Urine Glucose (UA) Urine Ketones Urine Occult Blood Urine Nitrite Urine Bilirubin Urine Urobilinogen Ur Leukocyte Esterase Urine RBC Urine WBC Ur Squamous Epith Cells Urine Bacteria Urine Mucus COVID-19 (MALIK) - Other Studies Radiology: [] reviewed Other Studies: [] Route of nutrition/ use of supplements: [] Nutritional Intake: [] IV Site: [] Morales Catheter: [] - Physical Exam General: Alert, Oriented x3, Cooperative, No apparent distress HEENT: Atraumatic, PERRLA, EOMI Neck: Supple, No Nodes Lungs: Clear to auscultation, Normal air movement Cardiovascular: Regular rate, Regular Rhythm Abdomen: Soft, Non-Distended, Tender - mild diffuse soreness Extremities: No edema Skin: Ulcer/ Wound - L 1st toe with purulence from plantar ulcer IV Site: Peripheral, without redness Musculoskeletal: No Tenderness to Palpation of Joints or Extremities Neurological: Cranial nerves II-XII grossly intact - Assessment/Plan Antibiotics: [] Assessment/Plan: [] Active and Suspected Problems (Last Reviewed 01/14/20 @ 00:[address] Gen Butt MD) Severe sepsis (Acute) Diabetic foot infection (Acute) severe sepsis with DM and spina bifida - Ucx pending. Will request wound cx and mrsa pcr be collected from foot. Podiatry to see, will order noncontrast MRI. Cont vanc/zosyn. Covid (+) 01/21, has recovered. Will follow, thank you.
[2020-02-13] MEDS: Insulin Lispro 100 UNIT/ML INSULN.PEN SC ×3 (11:24→22:18)
[2020-02-13 11:45] LABS: Bedside Glucose 154 mg/dL (70-110)
--- NOTE | 2020-02-13 11:45 | PN_ITS ---
Patient Problems: Active and Suspected Problems (Last Reviewed 01/14/20 @ 00:[address] Gen Butt MD) Severe sepsis (Acute) Diabetic foot infection (Acute) Reason for Visit: severe sepsis Subjective: Stepped on something with her toe. Has gotten worse since last month. Vitals/I&O's: Vital Signs Temp Pulse Resp BP Pulse Ox 37.1 C 67 16 102/59 L 96 02/13/20 08:00 02/13/20 11:30 02/13/20 11:00 02/13/20 11:00 02/13/20 11:00 Oxygen Delivery Method Room Air Weight: 106.8 kg Body Mass Index (BMI) 41.8 Finger Stick Blood Glucose 297 Intake and Output for Last 24 Hours 02/11/20 02/12/20 02/13/20 23:59 23:59 23:59 Intake Total 3830 / 3830 1855 / 1855 Output Total 400 / 900 900 / 900 Balance 3430 / 2930 955 / 955 General: Alert, No apparent distress HEENT: Atraumatic, Normocephalic Oral: Moist Mucosa, No Gingival or Mucosal Lesions/ Ulcerations Neck: No Nodes, Thyroid Normal Size and Texture Lungs: Clear to auscultation, Normal air movement, No rhonchi, No wheeze Cardiovascular: Regular rate, Regular Rhythm, Normal S1, Normal S2 Abdomen: Bowel Sounds Present, Soft, Non Tender, Non-Distended, No Hepato- splenomegaly Skin: - - decreased erythema of LLE on anterior mcdonald. ulceration under left great toe. Psych/Mental Status: Normal Affect, Appropriate Laboratory Results 02/12/20 15:25: COVID-19 (MALIK) Not Detected 02/12/20 15:47: WBC 14.6 H, RBC 4.23, Hgb 12.7, Hct 37.4, MCV 88.4, MCH 30.0, MCHC 34.0, RDW Std Deviation 41.3, RDW Coeff of Claude 12.7, Plt Count 183, MPV 10.8, Immature Gran % (Auto) 1.000 H, Neut % (Auto) 88.1 H, Lymph % (Auto) 4.9 L , Nobles % (Auto) 5.6, Eos % (Auto) 0.1, Baso % (Auto) 0.3, Absolute Neuts (auto) 12.9 H, Absolute Lymphs (auto) 0.71 L, Nucleated RBC % 0 02/12/20 15:47: Sodium 133 L, Potassium 4.0, Chloride 102, Carbon Dioxide 23.0, Anion Gap 8, BUN 8, Creatinine 0.97, Estim Creat Clear Calc 62.19, Est GFR (MDRD) Af Amer 83, Est GFR (MDRD) Non-Af 69, BUN/Creatinine Ratio 8.3 L, Glucose 257 H, Calcium 9.0 02/12/20 15:47: Lactic Acid 2.6 H* 02/12/20 16:05: Urine Color Yellow, Urine Clarity Clear, Urine pH 8.0, Ur Specific [place] 1.015, Urine Protein 100 H, Urine Glucose (UA) 1000 H, Urine Ketones 50 H, Urine Occult Blood 25 H, Urine Nitrite Negative, Urine Bilirubin Negative, Urine Urobilinogen 1 H, Ur Leukocyte Esterase 500 H, Urine RBC 0-5 SEEN, Urine WBC 25-50 SEEN, Ur Squamous Epith Cells 0-5 SEEN, Urine Bacteria 2+, Urine Mucus 0 SEEN 02/12/20 19:55: Lactic Acid 1.6 02/12/20 19:55: Procalcitonin 0.14 H 02/12/20 21:11: POC Glucose 197 H 02/13/20 03:45: WBC 8.0, RBC 3.72 L, Hgb 11.3 L, Hct 34.4 L, MCV 92.5, MCH 30.4, MCHC 32.8, RDW Std Deviation 44.1 H, RDW Coeff of Claude 13.1, Plt Count 161, MPV 10.4, Immature Gran % (Auto) 0.900, Neut % (Auto) 69.2, Lymph % (Auto) 19.8, Nobles % (Auto) 9.3, Eos % (Auto) 0.4, Baso % (Auto) 0.4, Absolute Neuts (auto) 5.5, Absolute Lymphs (auto) 1.58, Nucleated RBC % 0 02/13/20 03:45: Sodium 140, Potassium 3.6, Chloride 110 H, Carbon Dioxide 25.0, Anion Gap 5, BUN 6 L, Creatinine 0.82, Estim Creat Clear Calc 73.57, Est GFR (MDRD) Af Amer 101, Est GFR (MDRD) Non-Af 83, BUN/Creatinine Ratio 7.4 L, Glucose 148 H, Calcium 7.5 L, Phosphorus 2.7, Magnesium 1.6, Total Bilirubin 0.30, AST 51 H, ALT 63 H, Alkaline Phosphatase 61, Total Protein 6.6, Albumin 2.7 L, Globulin 3.9, Albumin/Globulin Ratio 0.7 L 02/13/20 10:35: S.aureus Protein A PCR Pending, MRSA (PCR) Pending 02/13/20 11:22: POC Glucose 154 H Current Medications Acetaminophen (Tylenol) 650 mg PO Q6H PRN PRN PRN Reason: Pain Score 1-10/Temp > 100.7 F Last Admin: 02/13/20 10:06 Dose: 650 mg Documented by: Al Hydroxide/Mg Hydroxide (Mylanta Ii) 30 ml PO Q6H PRN PRN PRN Reason: Gastric Burning Atorvastatin Calcium (Lipitor) 20 mg PO QHS [facility] Last Admin: 02/12/20 21:19 Dose: 20 mg Documented by: Enoxaparin Sodium (Lovenox) 40 mg SC DAILY [facility] Last Admin: 02/13/20 10:04 Dose: Not Given Documented by: Sodium Chloride () 1,000 mls @ 100 mls/hr IV .Q10H [facility] Last Admin: 02/13/20 07:38 Dose: 100 mls/hr Documented by: Piperacillin Sod/Tazobactam (Sod 3.375 gm/ Sodium Chloride) 50 mls @ 12.5 mls/hr IV Q8 [facility] Last Infusion: 02/13/20 10:10 Dose: Infused Documented by: Vancomycin IV Pharmacy to Dose (1 ea/ Sodium Chloride) 500 mls @ 250 mls/hr IV PRN PRN; Protocol PRN Reason: Rx to Dose Vancomycin HCl 1,750 mg/ (Sodium Chloride) 535 mls @ 250 mls/hr IV Q12H [facility] Last Infusion: 02/13/20 06:29 Dose: Infused Documented by: Insulin Glargine (Lantus (Bkc)) 15 units SC QHS [facility] Last Admin: 02/12/20 21:18 Dose: 15 units Documented by: Insulin Human Lispro (Humalog Kwikpen (Bk)) 0 unit SC [facility]; Protocol Last Admin: 02/13/20 11:24 Dose: 1 units Documented by: Melatonin (Melatonin) 3 mg PO QHS PRN PRN PRN Reason: INSOMNIA Ondansetron HCl (Zofran) 4 mg IV Q8H PRN PRN PRN Reason: NAUSEA/VOMITING Oxycodone HCl (Oxyir) 5 mg PO Q4H PRN PRN PRN Reason: Pain Score 4-10/10 Last Admin: 02/13/20 06:14 Dose: 5 mg Documented by: Polyethylene Glycol (Miralax) 17 gm PO BID [facility] Last Admin: 02/13/20 10:04 Dose: Not Given Documented by: Sodium Chloride () 10 - 40 ml IV UD PRN PRN Reason: SALINE FLUSH Tolterodine Tartrate (Detrol La) 4 mg PO DAILY [facility] Last Admin: 02/13/20 10:04 Dose: 4 mg Documented by: STROKE Vital Signs/Narrative: Vital Signs Temp Pulse Resp BP Pulse Ox 02/13/20 11:30 67 02/13/20 11:00 67 16 102/59 L 96 02/13/20 10:00 74 13 94/64 100 02/13/20 09:00 75 15 100/44 L 98 02/13/20 08:00 37.1 C 76 16 93/59 L 95 Medical Necessity - Tobacco Use Smoking Status: Never smoker Tobacco Use: Non-smoker, Secondhand Assessment/Plan All Active Problems (Last Reviewed 01/14/20 @ 00:[address] Gen Butt MD) Cellulitis (Acute) Severe sepsis (Acute) Diabetic foot infection (Acute) UTI (urinary tract infection) (Resolved) 1. Severe sepsis: * POA 2/2 cellulitis 2. LLE cellulitis * improving * pip/tazo and vanc * check MRI left foot for the L great toe ulcer 3. DM2 * fair control * on Basal insulin and SSI 4. VTE prophylaxis: LMWH Inpatient E&M: 37792 Subs Hosp L2
[2020-02-13 13:38] LABS: M R Staph aureus DNA By PCR Negative (Negative); Probe Check PASS; Specimen Processing Control PASS; Staph aureus DNA By PCR NEGATIVE (Negative)
[2020-02-13] MEDS: 0.9% Saline Lock 10 ML Syringe IV (13:49)
--- NOTE | 2020-02-13 14:35 | NURSING ---
wound photo: left great toe
--- NOTE | 2020-02-13 14:36 | NURSING ---
wound photo: left heel
--- NOTE | 2020-02-13 14:37 | CASEMGMT ---
Readmission chart review: Pt was initially admitted to [facility] 01/12-01/15/2020 for Cellulitis of extremity and was discharged home with on po antibiotics at that time. Pt then returned to [facility] ED on 01/21/2020 for SOB and was dx'd with COVID at that time per pt. Pt states has recovered from those symptoms but started again with fever/chills/N/V so returned to [facility] ED on 02/12/2020 and was admitted to the ICU for Severe sepsis. See CM note by Leonarda JUNIOR CM from 01/14/2020. Pt has been moved to [facility] at this time and t is currently on IV antibx at this time with cultures/MRI pending. CM to follow for any further discharge planning/needs. Deanna JUNIOR CM
[2020-02-13 16:45] LABS: Bedside Glucose 231 mg/dL (70-110)
--- NOTE | 2020-02-13 17:48 | CON.PCM_ITS ---
Problem List (1) Osteomyelitis of great toe of left foot Status: Acute (2) Cellulitis Status: Acute Qualifiers: Site of cellulitis: extremity Site of cellulitis of extremity: lower extremity Laterality: left Qualified Code(s): L03.116 - Cellulitis of left lower limb (3) Diabetic foot infection Status: Acute (4) Type 2 diabetes mellitus with diabetic polyneuropathy Status: Chronic (5) Lower extremity edema Status: Chronic (6) Spina bifida aperta of lumbar spine Status: Chronic Comment: s/p surgery x 2 weakness and numbness in legs neurogenic bladder and frequent UTIs (7) Morbid obesity with BMI of 40.0-44.9, adult Status: Chronic Reason for Consult Date of Consultation: 02/13/20 Reason for Consultation: ulcer left hallux History of Present Illness: The patient is a 39 year old F who presents to the hospital with sepsis, cellul itis and ulceration to left great toe. She also has a longstanding blister to medial heel. Patient has a history of diabetes, spina bifida, OM on left lateral foot requiring amputation, neuropathy to feet and ankles. Patient reports having ulcer for over a month and was treating it at home with her . Yesterday patient reports feeling sick with nausea and vomiting and was taken to the hospital where she was admitted to the ICU. Patient reports nausea and vomiting have since gone away and she also denies fever chills chest pain shortness of breath. Patient is noted to have redness to left lower extremity receded from line drawn in the emergency room. Patient also reports from previous osteomyelitis site on same foot on the lateral aspect going through a long course of IV antibiotics to try to treat the infection but that failed. Patient then had to undergo 2 separate procedures the second of which was a amputation before the infection was resolved. Patient states that she would like to skip the amount of time she wasted on the just the IV antibiotics and would like to move forward with surgery for any bone infection. [] Past Medical History Past Medical History (Chronic Problems): Chronic Problems (Last Reviewed 01/14/20 @ 00:[address] Gen Butt MD) PSVT (paroxysmal supraventricular tachycardia) (Chronic) Hyperlipidemia (Chronic) Essential hypertension (Chronic) Non-compliance (Chronic) Normochromic normocytic anemia (Chronic) HGB normal in Apr 2018 Type 2 diabetes mellitus with diabetic polyneuropathy (Chronic) Lower extremity edema (Chronic) Spina bifida aperta of lumbar spine (Chronic) s/p surgery x 2 weakness and numbness in legs neurogenic bladder and frequent UTIs Morbid obesity with BMI of 40.0-44.9, adult (Chronic) Medical History: Medical History (Last Reviewed 01/14/20 @ 00:[address] Gen Butt MD) PSVT (paroxysmal supraventricular tachycardia) (Chronic) I47.1 Hyperlipidemia (Chronic) E78.5 Essential hypertension (Chronic) I10 Non-compliance (Chronic) Z91.19 Normochromic normocytic anemia (Chronic) D64.9 HGB normal in Apr 2018 Type 2 diabetes mellitus with diabetic polyneuropathy (Chronic) E11.42 Lower extremity edema (Chronic) R60.0 Spina bifida aperta of lumbar spine (Chronic) Q05.7 s/p surgery x 2 weakness and numbness in legs neurogenic bladder and frequent UTIs Morbid obesity with BMI of 40.0-44.9, adult (Chronic) E66.01, Z68.41 Anxiety and depression F41.9, F32.9 Arthritis M19.90 Chronic back pain M54.9, G89.29 Chronic nausea R11.0 Constipation K59.00 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 Will follow, no need yet for cysto retros etc. 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 Neurogenic bladder N31.9 Neurogenic bowel K59.2 Panic attacks F41.0 Thyroid cyst E04.1 UTI (urinary tract infection) N39.0 Uninodular goiter E04.1 Cellulitis of left lower extremity L03.116 Diabetic ulcer of left heel with fat layer exposed E11.621, L97.422 Infection of bladder catheter T83.510A Sepsis A41.9 UTI (urinary tract infection) (Resolved) N39.0 Ulcer of left heel and midfoot with fat layer exposed L97.422 Allergies mushroom Allergy (Verified 02/12/20 14:40) Anaphylaxis peanut Allergy (Verified 02/12/20 14:40) Anaphylaxis Gadolinium-MRI Contrast Medium Adverse Reaction (Verified 02/12/20 14:40) Vomiting Latex, Natural Rubber Adverse Reaction (Verified 02/12/20 14:40) Rash Home Medications: Ambulatory Orders Medication Instructions Recorded Furosemide [Lasix] 20 mg PO DAILY@1700 08/28/18 Furosemide [Lasix] 40 mg PO BREAKFAST 04/05/19 traZODone [Desyrel] 50 mg PO QHS 07/08/19 insulin glargine 100 unit/mL (3 15 unit SC QHS 11/01/19 mL) subcutaneous pen lisinopril 2.5 mg tablet 2.5 mg PO DAILY 11/01/19 atorvastatin 20 mg tablet 20 mg PO QHS 11/12/19 oxybutynin chloride 15 mg 15 mg PO DAILY 11/12/19 tablet,extended release 24 hr Propranolol HCl 10 mg PO BID 01/13/20 Albuterol Inhaler [Ventolin Hfa] 1 - 2 puff INHALATION Q4H PRN PRN 01/22/20 #1 inhaler Acetaminophen [Tylenol Extra 1,000 mg PO TID PRN PRN 02/12/20 Strength] Surgical History: Surgical History (Last Reviewed 01/14/20 @ 00:[address] Gen Butt MD) history insertion suprapubic catheter History of cholecystectomy Z90.49 History of dilation and curettage Z98.890 History of spinal surgery Z98.890 x 2 Hx of foot surgery Z98.890 Hx of ventral hernia repair Z98.890, Z87.19 S/P thyroid biopsy Onset Date: ~11/06/19 Z98.890 Status post gastric surgery Z98.890 Surgical History: cholecystectomy, - - D&C, lumbar back surgery x2, foot surgery x2, abdominal stoma, ventral hernia repair. supraPubic catheter Psychiatric History: Anxiety, Depression MANAGER OF RECRUITING History: No pertinent MANAGER OF RECRUITING history Lives: Spouse/ Significant Other Smoking Status: Never smoker Tobacco Use: Non-smoker, Secondhand Alcohol: None Drugs: None - *Family History Maternal Family History: Family History (Last Reviewed 02/12/20 @ 17:42 by Megan Clark NP, HOME HEALTH OCCUPATIONAL THERAPIST-C) Mother CVA (cerebral vascular accident) Thyroid disorder Diabetes Hypertension Heart disease Hyperlipidemia Myocardial infarction, Onset Age: 54 Father Cancer Grandmother Cancer History Items: Cancer, Diabetes, Hypertension, Stroke Paternal Family History: Family History (Last Reviewed 02/12/20 @ 17:42 by Megan Clark NP, HOME HEALTH OCCUPATIONAL THERAPIST-C) Mother CVA (cerebral vascular accident) Thyroid disorder Diabetes Hypertension Heart disease Hyperlipidemia Myocardial infarction, Onset Age: 54 Father Cancer Grandmother Cancer History Items: Cancer Sibling Family History: Family History (Last Reviewed 02/12/20 @ 17:42 by Megan Clark NP, HOME HEALTH OCCUPATIONAL THERAPIST-C) Mother CVA (cerebral vascular accident) Thyroid disorder Diabetes Hypertension Heart disease Hyperlipidemia Myocardial infarction, Onset Age: 54 Father Cancer Grandmother Cancer History Items: - - Denies known sibling medical history. Review of Systems Constitutional: Denies: Chills, Fever Cardiovascular: Reports: Edema - lower extremity. Denies: Chest Pain Respiratory: Denies: Cough, Shortness of Breath Gastrointestinal: Denies: Nausea, Vomiting Musculoskeletal: Reports: Foot Pain - left great toe Skin: Reports: Wounds - x2 left foot Patient Problems: Active and Suspected Problems (Last Reviewed 01/14/20 @ 00:[address] Gen Butt MD) Severe sepsis (Acute) Diabetic foot infection (Acute) Osteomyelitis of great toe of left foot (Acute) - Physical Exam Vitals/I&O's: Vital Signs Temp Pulse Resp BP Pulse Ox 98.6 F 72 16 122/61 H 96 02/13/20 13:42 02/13/20 13:42 02/13/20 13:42 02/13/20 13:42 02/13/20 13:42 Oxygen Delivery Method Room Air Weight: 106.8 kg Body Mass Index (BMI) 41.8 Finger Stick Blood Glucose 297 Intake and Output for Last 24 Hours 02/11/20 02/12/20 02/13/20 23:59 23:59 23:59 Intake Total 3830 / 3830 2343.34 / 2343.34 Output Total 400 / 900 900 / 900 Balance 3430 / 2930 1443.34 / 1443.34 General: Alert, Oriented x3 HEENT: Atraumatic Abdomen: Obese Extremities: - - 1 out of 4 DP and PT pulses. Absent light touch sensation from ankles to toes. Capillary refill time less than 3 seconds to digits. Lateral aspect of left foot noted amputation at the level of fifth MPJ with fifth digit remaining. Dry skin with callus tissue noted. Edema noted. Erythema present. Left great toe is noted to be contracted in a mallet toe formation. This put excess pressure at the ulceration site. Ulcer noted to plantar aspect of great left toe measuring 1-1/2 x 2 cm with granular base surrounding callus tissue erythema and edema. Base is granular and down to the level of fat. Muscle strength intact to all groups of lower extremity. Decreased range of motion noted at joints. Rigid contracture of the hallux. Blister noted to medial aspect of the heel. This was the removed and was noted to have healthy dermis tissue and is granular underneath. Mild fluid exudate. This measures 2-1/2 x 2.7 cm. Psych/Mental Status: Normal Affect, Appropriate Microbiology Past 72 Hours 02/13/20 10:35 Wound - Toe Gram Stain - Final 02/12/20 16:05 Urine Catheter - Morales Urine Culture - Preliminary Mixed Gram Pos & Gram Neg Org Laboratory Results 02/12/20 15:25: COVID-19 (MALIK) Not Detected 02/12/20 19:55: Lactic Acid 1.6 02/12/20 19:55: Procalcitonin 0.14 H 02/12/20 21:11: POC Glucose 197 H 02/13/20 03:45: WBC 8.0, RBC 3.72 L, Hgb 11.3 L, Hct 34.4 L, MCV 92.5, MCH 30.4, MCHC 32.8, RDW Std Deviation 44.1 H, RDW Coeff of Claude 13.1, Plt Count 161, MPV 10.4, Immature Gran % (Auto) 0.900, Neut % (Auto) 69.2, Lymph % (Auto) 19.8, Garfield % (Auto) 9.3, Eos % (Auto) 0.4, Baso % (Auto) 0.4, Absolute Neuts (auto) 5.5, Absolute Lymphs (auto) 1.58, Nucleated RBC % 0 02/13/20 03:45: Sodium 140, Potassium 3.6, Chloride 110 H, Carbon Dioxide 25.0, Anion Gap 5, BUN 6 L, Creatinine 0.82, Estim Creat Clear Calc 73.57, Est GFR (MDRD) Af Amer 101, Est GFR (MDRD) Non-Af 83, BUN/Creatinine Ratio 7.4 L, Glucose 148 H, Calcium 7.5 L, Phosphorus 2.7, Magnesium 1.6, Total Bilirubin 0.30, AST 51 H, ALT 63 H, Alkaline Phosphatase 61, Total Protein 6.6, Albumin 2.7 L, Globulin 3.9, Albumin/Globulin Ratio 0.7 L 02/13/20 10:35: S.aureus Protein A PCR NEGATIVE, MRSA (PCR) Negative 02/13/20 11:22: POC Glucose 154 H 02/13/20 16:26: POC Glucose 231 H Current Medications Acetaminophen (Tylenol) 650 mg PO Q6H PRN PRN PRN Reason: Pain Score 1-10/Temp > 100.7 F Last Admin: 02/13/20 10:06 Dose: 650 mg Documented by: Al Hydroxide/Mg Hydroxide (Mylanta Ii) 30 ml PO Q6H PRN PRN PRN Reason: Gastric Burning Atorvastatin Calcium (Lipitor) 20 mg PO QHS [facility] Last Admin: 02/12/20 21:19 Dose: 20 mg Documented by: Enoxaparin Sodium (Lovenox) 40 mg SC DAILY [facility] Last Admin: 02/13/20 10:04 Dose: Not Given Documented by: Piperacillin Sod/Tazobactam (Sod 3.375 gm/ Sodium Chloride) 50 mls @ 12.5 mls/hr IV Q8 [facility] Last Admin: 02/13/20 13:50 Dose: 12.5 mls/hr Documented by: Vancomycin IV Pharmacy to Dose (1 ea/ Sodium Chloride) 500 mls @ 250 mls/hr IV PRN PRN; Protocol PRN Reason: Rx to Dose Vancomycin HCl 1,750 mg/ (Sodium Chloride) 535 mls @ 250 mls/hr IV Q12H [facility] Last Admin: 02/13/20 16:28 Dose: 250 mls/hr Documented by: Insulin Glargine (Lantus (Bkc)) 15 units SC QHS [facility] Last Admin: 02/12/20 21:18 Dose: 15 units Documented by: Insulin Human Lispro (Humalog Kwikpen (Bkc)) 0 unit SC ACHS [facility]; Protocol Last Admin: 02/13/20 16:33 Dose: 3 units Documented by: Melatonin (Melatonin) 3 mg PO QHS PRN PRN PRN Reason: INSOMNIA Ondansetron HCl (Zofran) 4 mg IV Q8H PRN PRN PRN Reason: NAUSEA/VOMITING Oxycodone HCl (Oxyir) 5 mg PO Q4H PRN PRN PRN Reason: Pain Score 4-10/10 Last Admin: 02/13/20 13:47 Dose: 5 mg Documented by: Polyethylene Glycol (Miralax) 17 gm PO BID [facility] Last Admin: 02/13/20 10:04 Dose: Not Given Documented by: Sodium Chloride () 10 - 40 ml IV UD PRN PRN Reason: SALINE FLUSH Last Admin: 02/13/20 13:49 Dose: 10 ml Documented by: Tolterodine Tartrate (Detrol La) 4 mg PO DAILY [facility] Last Admin: 02/13/20 10:04 Dose: 4 mg Documented by: Assessment/Plan All Active Problems (Last Reviewed 01/14/20 @ 00:[address] Gen Butt MD) Cellulitis (Acute) Severe sepsis (Acute) Diabetic foot infection (Acute) Osteomyelitis of great toe of left foot (Acute) UTI (urinary tract infection) (Resolved) Osteomyelitis distal phalanx left hallux Cellulitis left lower extremity Diabetes type 2 Spina bifida Neuropathy lower extremities Mallet toe left hallux Morbid obesity Patient seen and evaluated bedside patient was noted to have ulceration to the plantar aspect of her left great toe with contracture of the digit and a mallet toe formation which would significantly increase the amount of pressure at the wound site likely causing the breakdown and ulceration. Reviewed MRI results with the patient which showed distal failings osteomyelitis to the plantar surface of the distal bone. Discussed with the patient her options with bone infection including long-term IV antibiotics, wound care, surgical amputation of the infected bone. Also reviewed all risk benefits alternatives and complications including but not limited to infection delayed healing nonhealing need for further surgery or amputation. Also discussed with the patient the potential need to remove part of her proximal phalanx if proven necessary in order to close the wound as well as to remove any remaining sources of pressure to the digit which may lead to future ulcerations. Patient has gone down this road before. She states that she had bone infection on the lateral aspect of her left foot previously and tried the long-term course of IV antibiotics without successfully removing the infection. She ended up needing 2 surgeries to clear out the infection. She would not like to undergo that process again. She would like to proceed with surgical amputation at this time. Discussed with the patient that this could be done tomorrow at 2 PM. Patient is to be n.p.o. after midnight. Cultures will be taken intraoperatively. Also deroofed the blister to the medial aspect of the patient's left heel. Healthy granular dermis tissue was noted underneath. No active signs of infection or probing noted. Continue wound care with silver alginate to wound on hallux and heel cover with 4 x 4's gauze wrap and Carlos bandage. This should be done daily. All questions were answered to patient satisfaction. Continue IV antibiotics per ID for infectious disease Follow cultures. We will need surgical shoe for postoperative period. Podiatry will continue to follow Thank you for the consult and contact if any questions arise.
[2020-02-13] MEDS: Atorvastatin Calcium 20 MG Tablet PO (22:17)
[2020-02-13 22:26] LABS: Bedside Glucose 186 mg/dL (70-110)
[2020-02-14] VITALS (13 sets, daily range): BP systolic 95–133; BP diastolic 61–85; PULSE 63–80; RESP 16–18; TEMP 36.2–36.9; O2SAT 92–100; BMI 42.4
[2020-02-14 04:15] LABS: Vancomycin, Trough Level 18.9 ug/mL (5.0-15.0)
[2020-02-14 04:18] LABS: Anion Gap 8 (5-15); BUN 8 mg/dL (7-18); BUN/Creat Ratio 10.4 RATIO (10-20); Calcium,Total 7.8 mg/dL (8.5-10.1); Chloride 108 mmol/L (98-107); Creatinine, Serum 0.77 mg/dL (0.55-1.02); EST Glomerular Filtration Rate 90 mL/min (>60); Est Glom Filt Rate - Afr Amer 108 mL/min (>60); Estimated Creatinine Clearance 78.35 ml/min; Glucose 133 mg/dL (74-106); Potassium 4.3 mmol/L (3.5-5.1); Sodium Level 138 mmol/L (136-145)
--- NOTE | 2020-02-14 04:48 | PCM.RX.CS ---
Consult Pharmacy has been consulted to manage selected antiobiotic: Vancomycin Type of Consult: Follow-up Suspected Infection: Sepsis Prior Doses of Antibiotics Received/Current Regimen: Medications Vancomycin HCl 1,750 mg/ (Sodium Chloride) 535 mls @ 250 mls/hr IV Q12H [facility] Last Admin: 02/14/20 04:20 Dose: 250 mls/hr Labs: Sodium 138 mmol/L (136-145) 02/14/20 03:40 Potassium 4.3 mmol/L (3.5-5.1) 02/14/20 03:40 Chloride 108 mmol/L (98-107) H 02/14/20 03:40 Carbon Dioxide 22.0 mmol/L (21.0-32.0) 02/14/20 03:40 Anion Gap 8 (5-15) 02/14/20 03:40 BUN 8 mg/dL (7-18) 02/14/20 03:40 Creatinine 0.77 mg/dL (0.55-1.02) 02/14/20 03:40 Est GFR (MDRD) Af Amer 108 mL/min (>60) 02/14/20 03:40 Est GFR (MDRD) Non-Af 90 mL/min (>60) 02/14/20 03:40 BUN/Creatinine Ratio 10.4 RATIO (10-20) 02/14/20 03:40 Glucose 133 mg/dL (74-106) H 02/14/20 03:40 Vancomycin Trough 18.9 ug/mL (5.0-15.0) H 02/14/20 03:40 Microbiology: Microbiology 02/13/20 10:35 Wound - Toe Gram Stain - Final 02/12/20 16:05 Urine Catheter - Morales Urine Culture - Preliminary Mixed Gram Pos & Gram Neg Org Weight used for dosin.8 kg Estimated Creatinine Clearance: 106 Goal Trough: 15-20 mcg/mL Pharmacy Plan for Drug Dosing: Trough level of 18.9 was within target range of 15-20. Will continue current dosing and re-draw trough in 4 days. Pharmacy Service will continue to monitor and adjust dosing as required. Follow-Up Labs: Trough Vancomycin Labs to be done on [date and time ordered]: 02/18/20 @5088
[2020-02-14 07:15] LABS: Bedside Glucose 113 mg/dL (70-110)
--- NOTE | 2020-02-14 07:34 | NURSING ---
Pt is scheduled for surgery for amputation of the left great toe today per Dr George. will leave dressing in place since pt is going for surgery.
[2020-02-14 09:03] LABS: Hemoglobin A1c 9.8 % (3.8-5.6)
[2020-02-14] MEDS: Ketorolac 15 MG/ML Vial IV (11:15)
[2020-02-14 13:06] LABS: Bedside Glucose 112 mg/dL (70-110)
[2020-02-14] MEDS: Lactated Ringers 1,000 ML 100 ML IV ×2 (13:38→16:51)
[2020-02-14 13:39] LABS: Internal QC Validated? YES +Cl - CLEAR BKGD; Pregnancy, Serum, hCG Quali. NEGATIVE Negative
--- NOTE | 2020-02-14 13:55 | PN_ITS ---
Patient Problems: Active and Suspected Problems (Last Reviewed 01/14/20 @ 00:[address] Gen Butt MD) Severe sepsis (Acute) Diabetic foot infection (Acute) Osteomyelitis of great toe of left foot (Acute) Reason for Visit: osteomyelitis Vitals/I&O's: Vital Signs Temp Pulse Resp BP Pulse Ox 36.7 C 70 18 120/78 98 02/14/20 09:43 02/14/20 09:46 02/14/20 09:43 02/14/20 09:43 02/14/20 09:43 Oxygen Delivery Method Room Air Weight: 105.2 kg Body Mass Index (BMI) 42.4 Finger Stick Blood Glucose 297 Intake and Output for Last 24 Hours 02/12/20 02/13/20 02/14/20 23:59 23:59 23:59 Intake Total 3830 / 3830 3579.84 / 3579.84 666 / 666 Output Total 400 / 900 3450 / 3450 1400 / 1400 Balance 3430 / 2930 129.84 / 129.84 -734 / -734 General: Alert, No apparent distress HEENT: Atraumatic, Normocephalic Oral: Moist Mucosa, No Gingival or Mucosal Lesions/ Ulcerations Neck: No Nodes, Thyroid Normal Size and Texture Lungs: Clear to auscultation, Normal air movement, No rhonchi, No wheeze Cardiovascular: Regular rate, Regular Rhythm, Normal S1, Normal S2, No murmurs Abdomen: Bowel Sounds Present, Soft, Non Tender, Non-Distended Extremities: No edema, No Calf Tenderness Microbiology Past 72 Hours 02/13/20 10:35 Wound - Toe Gram Stain - Final 02/13/20 10:35 Wound - Toe Wound Culture - Preliminary Streptococcus agalactiae (B) 02/12/20 16:05 Urine Catheter - Morales Urine Culture - Preliminary 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 Gram negative sue Staphylococcus species Laboratory Results 02/13/20 16:26: POC Glucose 231 H 02/13/20 22:17: POC Glucose 186 H 02/14/20 03:40: Vancomycin Trough 18.9 H 02/14/20 03:40: Sodium 138, Potassium 4.3, Chloride 108 H, Carbon Dioxide 22.0, Anion Gap 8, BUN 8, Creatinine 0.77, Estim Creat Clear Calc 78.35, Est GFR (MDRD) Af Amer 108, Est GFR (MDRD) Non-Af 90, BUN/Creatinine Ratio 10.4, Glucose 133 H, Calcium 7.8 L 02/14/20 03:40: Hemoglobin A1c 9.8 H 02/14/20 07:06: POC Glucose 113 H 02/14/20 12:56: POC Glucose 112 H 02/14/20 13:13: Serum , Qual NEGATIVE Current Medications Acetaminophen (Tylenol) 650 mg PO Q6H PRN PRN PRN Reason: Pain Score 1-10/Temp > 100.7 F Last Admin: 02/13/20 10:06 Dose: 650 mg Documented by: Al Hydroxide/Mg Hydroxide (Mylanta Ii) 30 ml PO Q6H PRN PRN PRN Reason: Gastric Burning Atorvastatin Calcium (Lipitor) 20 mg PO QHS [facility] Last Admin: 02/13/20 22:17 Dose: 20 mg Documented by: Enoxaparin Sodium (Lovenox) 40 mg SC DAILY [facility] Last Admin: 02/14/20 09:29 Dose: Not Given Documented by: Piperacillin Sod/Tazobactam (Sod 3.375 gm/ Sodium Chloride) 50 mls @ 12.5 mls/hr IV Q8 [facility] Last Infusion: 02/14/20 11:17 Dose: Infused Documented by: Vancomycin IV Pharmacy to Dose (1 ea/ Sodium Chloride) 500 mls @ 250 mls/hr IV PRN PRN; Protocol PRN Reason: Rx to Dose Vancomycin HCl 1,750 mg/ (Sodium Chloride) 535 mls @ 250 mls/hr IV Q12H [facility] Last Infusion: 02/14/20 07:00 Dose: Infused Documented by: Sodium Chloride () 250 mls @ 15 mls/hr IV .[id number] PRN PRN Reason: Saline Flush Last Infusion: 02/14/20 04:21 Dose: 0 mls/hr Documented by: Sodium Chloride () 250 mls @ 15 mls/hr IV .[id number] PRN PRN Reason: Additional IVPB Infusion Lactated Ringer's () 1,000 mls @ 100 mls/hr IV .Q10H [facility] Last Admin: 02/14/20 13:38 Dose: 100 mls/hr Documented by: Insulin Glargine (Lantus (Bkc)) 15 units SC QHS [facility] Last Admin: 02/13/20 22:17 Dose: 15 units Documented by: Insulin Human Lispro (Humalog Kwikpen (Bkc)) 0 unit SC [facility]; Protocol Last Admin: 02/14/20 13:01 Dose: Not Given Documented by: Melatonin (Melatonin) 3 mg PO QHS PRN PRN PRN Reason: INSOMNIA Ondansetron HCl (Zofran) 4 mg IV Q8H PRN PRN PRN Reason: NAUSEA/VOMITING Oxycodone HCl (Oxyir) 5 mg PO Q4H PRN PRN PRN Reason: Pain Score 4-10/10 Last Admin: 02/13/20 22:25 Dose: 5 mg Documented by: Polyethylene Glycol (Miralax) 17 gm PO BID [facility] Last Admin: 02/14/20 09:29 Dose: Not Given Documented by: Sodium Chloride () 10 - 40 ml IV UD PRN PRN Reason: SALINE FLUSH Last Admin: 02/13/20 13:49 Dose: 10 ml Documented by: Tolterodine Tartrate (Detrol La) 4 mg PO DAILY [facility] Last Admin: 02/13/20 10:04 Dose: 4 mg Documented by: Medical Necessity - Tobacco Use Smoking Status: Never smoker Tobacco Use: Non-smoker, Secondhand Assessment/Plan All Active Problems (Last Reviewed 01/14/20 @ 00:[address] Gen Butt MD) Cellulitis (Acute) Severe sepsis (Acute) Diabetic foot infection (Acute) Osteomyelitis of great toe of left foot (Acute) UTI (urinary tract infection) (Resolved) 1. Severe sepsis: * POA 2/2 cellulitis and osteomyelitis 2. L great toe osteomyelitis and LLE cellulitis * to OR today for amputation/debridement * pip/tazo and vanc * check MRI left foot for the L great toe ulcer * ID and podiatry following 3. DM2 * fair control * on Basal insulin and SSI 4. VTE prophylaxis: LMWH Inpatient E&M: [id number] [facility] L2
--- NOTE | 2020-02-14 14:15 | AMP_PTH ---
PATIENT: HEBER BAILON LOC: [facility] U#:[id number] AGE/SX: 39/F ROOM: [facility]320 RE02/12/[address]: Dr. Jhony Boyer DO : 1980 BED: 1 DIS: 02/19/2020 SPEC #: [id number] RECD: 02/14/20 15:29 STATUS: KIM REMary #: [id number] EFRAIN: 02/14/20 14:[address]: Karma George DEPT: SURGICAL PATHOLOGY RECD BY: Nam Lezama ENTERED: 02/17/20 07:03 SP TYPE: Amputation OTHR DR: MD Dr. Rigo Hairston DO Dr. Jeffrey Burkey, MD Dr. Kathryn Lee, DO Dr. Robert Leininger, MD Tissues: Toe, NOS Procedures: Decalcification bone/plaque Surgery Specimen Level IV HEADER OPERATION: Amputation great toe PRE-OP DIAGNOSIS: Osteomyelitis of great toe left foot TISSUE SUBMITTED: Left great toe MICROSCOPIC DIAGNOSIS Left great toe, amputation: Focal ulceration, associated acute and chronic inflammation and granulation tissue reaction. Underlying bone, negative for acute osteomyelitis. BALBIR:kateryna 02/20/20 MICROSCOPIC DESCRIPTION Slides are reviewed. GROSS DESCRIPTION Received in fixative is one container labeled with the patient's name and designated left great toe. The specimen consists of a portion of toe measuring 2.5 x 3 x 2.5 cm. The nail appears unremarkable. A focal area of ulceration is noted on the dorsal surface of the toe measuring 1.5 x 1 cm. Athlete Manager sections are submitted in two cassettes as follows: 1 - ulcerated area, 2 - bone after decalcification. / BALBIR:kateryna 02/17/20 TC:2 CPT: 65972, 33093
[2020-02-14] MEDS: Bupivacaine Mpf 0.5% 30 ML VIAL (15:00)
--- NOTE | 2020-02-14 15:22 | OP.PCM_ITS ---
Problem List (1) Osteomyelitis of great toe of left foot Status: Acute (2) Cellulitis Status: Acute Qualifiers: Site of cellulitis: extremity Site of cellulitis of extremity: lower extremity Laterality: left Qualified Code(s): L03.116 - Cellulitis of left lower limb (3) Diabetic foot infection Status: Acute (4) Type 2 diabetes mellitus with diabetic polyneuropathy Status: Chronic (5) Lower extremity edema Status: Chronic (6) Spina bifida aperta of lumbar spine Status: Chronic Comment: s/p surgery x 2 weakness and numbness in legs neurogenic bladder and frequent UTIs (7) Morbid obesity with BMI of 40.0-44.9, adult Status: Chronic Report of Operation Date of Procedure: 02/14/20 Pre-Operative Diagnosis: Osteomyelitis left great toe. cellulitis left foot. DM2 with foot ulcer Post-Operative Diagnosis: Osteomyelitis left great toe. cellulitis left foot. DM2 with foot ulcer Surgery/Procedure Performed:: partial amputation of left great toe Description of Surgical Findings:: hemostasis: ankle tourniquet 250mmhg 34minutes material: 3-0 vicryl, 3-0 nylon no absess welfare project manager: Karma George - Surgeon: Karma George DPM. property management assistant: Megan Camacho PGY1 Type of Anesthesia:: IV Sedation, Local - 10 cc of 0.5% bupivicaine Specimen's removed: partial left great toe. left PIPJ amputation site culture soft tissue Estimated Blood Loss (mL): <10cc Description of Procedure: Patient was seen in the hospital for chronic left great toe ulceration. Patient was noted to have a mallet toe deformity which likely increased pressure to the tissue creating the ulceration. MRI was obtained which shoed osteomyelitis in the distal phalanx. Patient has had osteomyelitis to the left foot before to the 5th ray. Explained to patient treatment options including IV antibiotics, wound care, and amputation. Patient states she stried IV antibiotics before and still ended up with the amputation. Patient would like to avoid that and wishes to proceed with the amputation. The patient had clearance obtained in the chart. The postoperative risks, benefits, alternatives, and complications were explained in detail with the patient. Description of the procedure: The patient was seen in the preoperative holding area where the chart was reviewed and the patient was examined. A consent form was reviewed and signed by the patient. All risks, benefits, alternatives, and complication including, but not limited to infection, delayed healing, nonhealing, recurrence, possible need for further surgery or amputation were explained to the patient. No guarantees, again, were given to outcome. Pt demonstrated understanding. Consent form was reviewed and signed. The patient was then transported to the OR and placed on the OR table in the supine position. Left ankle tourniquet was applied, but not inflated at this time. After IV line was established and IV sedation was established an additional 10cc of .5% valentine pl. was injected and infiltrated in a berman block fashion to the left foot. At this time the left foot and ankle were prepped and draped in the usual sterile fashion. Left foot was exsangunated w/ esmarck at this time and ankle tourniquet was inflated to 250 mmHg. Attention was then directed to the left 1st digit where a distal symes -shaped incision encompassing the distal 2nd digit, including the chronic ulcer at the distal tuft, but leaving a plantar flap, was circumscribed with a skin scribe. Using a #15 blade the incision was carried out at the level of the IPJ. Incision was deepened through the underlying tissue layers via sharp and blunt dissection. Care was taken to clamp and electrocauterize all vessels that were encountered. A great deal of bleeding was not noted at this time. The incision was carried down to the level of the IPJ, where towel clamp was utilized to completely detach the left 1st distal digit at the IPJ, free of all soft tissue attachments. The distal toe was sent as specimen. The area was then irrigated with copious amounts of normal saline utilizing a pulse lavage. It was noted that the Left 1st proximal phalanx was normal and healthy in appearance and that cartilage was intact. It was noted that good adequate bleeding was encountered at this level. The area was free of non-vital tissue and no signs of infection were noted. At this time, the skin edges were re-approximated using 3-0 vicryl and 3-0 Nylon in simple suture fashion. The tourniquet was released with prompt brisk hyperemic response noted to the remaining digits. The area was dressed with betadine soaked adaptic, 4x4s, kerlix, and an richard wrap. Patient tolerated the procedure and anesthesia without any complications. Vascular status was maintained throughout the procedure to remaining digits. Patient was transferred to PACU and will be readmitted to the floor for continued care. Patient is to be NWB to left foot. Patient to continue antibiotics per ID. Will follow OR cultures. Podiatry will continue to follow. - Complications none - Admit VTE Documentation VTE Mechan Device Prophylaxis: SCD's
--- NOTE | 2020-02-14 15:45 | RAD_ITS ---
STUDY: X-RAY - LEFT FOOT CLINICAL: Female, 39 years old. Post op amputation 1st toe TECHNIQUE: 3 view(s) of the foot. COMPARISON: Comparison is made with prior study dated 02/12/2020. FINDINGS: There is an enthesophyte involving the posterior superior calcaneus at the site of insertion of the Achilles tendon. Normal visualized subtalar, talonavicular, calcaneocuboid, tarsal and tarsometatarsal articulations. Prior partial resection of the fifth metatarsal. Normal metatarsophalangeal joint of the great toe. The patient is status post amputation of the distal phalanx of the great toe. Normal second through fifth metatarsophalangeal joints. Normal interphalangeal joints and phalanges of the lesser toes. Postoperative soft tissue swelling. RAD/Foot min 3 Views IMPRESSION: Status post resection of the distal pharynx of great toe with postoperative soft tissue changes. Electronically Signed: Stephan Sood, at 15:58 EDT , Service support ,
[2020-02-14 16:21] LABS: Bedside Glucose 143 mg/dL (70-110)
[2020-02-14] MEDS: Acetaminophen 325 MG Tablet 650 MG PO (16:44)
[2020-02-14] MEDS: 0.9% Saline Lock 10 ML Syringe IV ×2 (16:44→21:37)
[2020-02-14] MEDS: oxyCODONE 5 MG Tablet PO ×2 (16:44→20:42)
[2020-02-14] MEDS: Tolterodine Tartrate 4 MG CAP.SA PO (16:46)
[2020-02-14] MEDS: Atorvastatin Calcium 20 MG Tablet PO (21:37)
[2020-02-14] MEDS: Insulin Lispro 100 UNIT/ML INSULN.PEN SC (21:38)
[2020-02-14] MEDS: Polyethylene Glycol 3350 17 GM PACKET PO (21:38)
[2020-02-14 21:50] LABS: Bedside Glucose 306 mg/dL (70-110)
[2020-02-15 02:28] VITALS: BP 127/81; PULSE 71; RESP 16; TEMP 36.8; O2SAT 97
[2020-02-15] MEDS: Acetaminophen 325 MG Tablet 650 MG PO ×4 (02:34→22:34)
[2020-02-15] MEDS: oxyCODONE 5 MG Tablet PO ×5 (02:34→22:32)
[2020-02-15] MEDS: Insulin Lispro 100 UNIT/ML INSULN.PEN SC ×4 (06:34→21:36)
[2020-02-15 07:05] LABS: Bedside Glucose 276 mg/dL (70-110)
[2020-02-15 08:04] VITALS: BP 126/85; PULSE 48; RESP 16; TEMP 36.6; O2SAT 98
[2020-02-15] MEDS: Lactated Ringers 1,000 ML 100 ML IV ×2 (08:07→16:41)
[2020-02-15] MEDS: Tolterodine Tartrate 4 MG CAP.SA PO (08:26)
--- NOTE | 2020-02-15 09:46 | PN_ITS ---
Patient Problems: Active and Suspected Problems (Last Reviewed 01/14/20 @ 00:[address] Gen Butt MD) Severe sepsis (Acute) Diabetic foot infection (Acute) Osteomyelitis of great toe of left foot (Acute) Subjective: Patient was seen bedside after partial left hallux amputation 02/14/20 due to osteomyelitis and chronic ulceration. She reports pain to her toe that is largely managed by her pain meds but otherwise no issues overnight. Patient denies N/F/V/C/CP/SOB/calf pain. - Physical Exam Vitals/I&O's: Vital Signs Temp Pulse Resp BP Pulse Ox 97.8 F 48 L 16 126/85 H 98 02/15/20 08:04 02/15/20 08:04 02/15/20 08:04 02/15/20 08:04 02/15/20 08:04 Oxygen Flow Rate (L/min) 2 Oxygen Delivery Method Room Air Weight: 105.6 kg Body Mass Index (BMI) 42.4 Finger Stick Blood Glucose 143 Intake and Output for Last 24 Hours 02/13/20 02/14/20 02/15/20 23:59 23:59 23:59 Intake Total 3579.84 / 3579.84 2167.67 / 3087.67 2577.33 / 2577.33 Output Total 3450 / 3450 2250 / 2800 1250 / 1250 Balance 129.84 / 129.84 -82.33 / 287.67 1327.33 / 1327.33 General: Alert, Oriented x3 HEENT: Atraumatic Extremities: - - Left: CFT to all digits left foot including ampuatation stump brisk. PT and DP 2/4. Skin is warm to the touch. Some edema noted to left lower extremity. Erythema improved. Sutures intact with skin well coapted. Minimal sanginous drainage on dressing. No signs of necrosis. No purulence. Pain to palpation of amputation site. Epicritic sensation decreased. Muscle strength intact to all muscle groups. Left medial heel ulceration granular base, healilng appropriately, no SOI, no drainage, no probing Skin: Incision - left hallux Musculoskeletal: - - amputation left hallux at IPJ, and 5th metatarsal head Psych/Mental Status: Normal Affect, Appropriate Microbiology Past 72 Hours 02/12/20 16:43 Blood Culture (Wb) - Anticubital Right Blood Culture - Preliminary No growth in 48 hours. 02/12/20 15:47 Blood Culture (Wb) - Left Forearm Blood Culture - Preliminary No growth in 48 hours. 02/13/20 10:35 Wound - Toe Gram Stain - Final 02/13/20 10:35 Wound - Toe Wound Culture - Preliminary Streptococcus agalactiae (B) 02/12/20 16:05 Urine Catheter - Morales Urine Culture - Preliminary Klebsiella pneumoniae sp pneum Gram negative sue Staphylococcus haemolyticus Laboratory Results 02/14/20 12:56: POC Glucose 112 H 02/14/20 13:13: Serum , Qual NEGATIVE 02/14/20 16:09: POC Glucose 143 H 02/14/20 21:35: POC Glucose 306 H 02/15/20 06:32: POC Glucose 276 H Current Medications Acetaminophen (Tylenol) 650 mg PO Q6H PRN PRN PRN Reason: Pain Score 1-10/Temp > 100.7 F Last Admin: 02/15/20 08:30 Dose: 650 mg Documented by: Al Hydroxide/Mg Hydroxide (Mylanta Ii) 30 ml PO Q6H PRN PRN PRN Reason: Gastric Burning Atorvastatin Calcium (Lipitor) 20 mg PO QHS [facility] Last Admin: 02/14/20 21:37 Dose: 20 mg Documented by: Enoxaparin Sodium (Lovenox) 40 mg SC DAILY [facility] Last Admin: 02/14/20 09:29 Dose: Not Given Documented by: Piperacillin Sod/Tazobactam (Sod 3.375 gm/ Sodium Chloride) 50 mls @ 12.5 mls/hr IV Q8 [facility] Last Admin: 02/15/20 06:33 Dose: 12.5 mls/hr Documented by: Vancomycin IV Pharmacy to Dose (1 ea/ Sodium Chloride) 500 mls @ 250 mls/hr IV PRN PRN; Protocol PRN Reason: Rx to Dose Vancomycin HCl 1,750 mg/ (Sodium Chloride) 535 mls @ 250 mls/hr IV Q12H [facility] Last Infusion: 02/15/20 06:08 Dose: Infused Documented by: Sodium Chloride () 250 mls @ 15 mls/hr IV .[id number] PRN PRN Reason: Saline Flush Last Infusion: 02/15/20 06:33 Dose: 0 mls/hr Documented by: Sodium Chloride () 250 mls @ 15 mls/hr IV .[id number] PRN PRN Reason: Additional IVPB Infusion Lactated Ringer's () 1,000 mls @ 100 mls/hr IV .Q10H [facility] Last Admin: 02/15/20 08:07 Dose: 100 mls/hr Documented by: Insulin Glargine (Lantus (Bk)) 15 units SC QHS [facility] Last Admin: 02/14/20 21:38 Dose: 15 units Documented by: Insulin Human Lispro (Humalog Kwikpen ([facility])) 0 unit SC ACHS [facility]; Protocol Last Admin: 02/15/20 06:34 Dose: 4 units Documented by: Melatonin (Melatonin) 3 mg PO QHS PRN PRN PRN Reason: INSOMNIA Ondansetron HCl (Zofran) 4 mg IV Q8H PRN PRN PRN Reason: NAUSEA/VOMITING Oxycodone HCl (Oxyir) 5 mg PO Q4H PRN PRN PRN Reason: Pain Score 4-10/10 Last Admin: 02/15/20 08:13 Dose: 5 mg Documented by: Polyethylene Glycol (Miralax) 17 gm PO BID [facility] Last Admin: 02/15/20 08:27 Dose: Not Given Documented by: Sodium Chloride () 10 - 40 ml IV UD PRN PRN Reason: SALINE FLUSH Last Admin: 02/14/20 21:37 Dose: 10 ml Documented by: Tolterodine Tartrate (Detrol La) 4 mg PO DAILY [facility] Last Admin: 02/15/20 08:26 Dose: 4 mg Documented by: Medical Necessity - Tobacco Use Smoking Status: Never smoker Tobacco Use: Non-smoker, Secondhand Assessment/Plan All Active Problems (Last Reviewed 01/14/20 @ 00:[address] Gen Butt MD) Cellulitis (Acute) Severe sepsis (Acute) Diabetic foot infection (Acute) Osteomyelitis of great toe of left foot (Acute) UTI (urinary tract infection) (Resolved) Osteomyelitis distal phalanx left hallux Cellulitis left lower extremity Diabetes type 2 Spina bifida Neuropathy lower extremities Mallet toe left hallux Morbid obesity Patient seen and evaluated bedside Patient underwent amputation at the level of IPJ of left hallux on 02/14/2020 due to OM and chronic ulceration Reviewed MRI results with the patient which showed distal failings osteomyelitis to the plantar surface of the distal bone. Medial heel ulcer stable no signs of infection Continue wound care with silver alginate to wound heel and nonadherant to hallux and cover with 4 x 4's gauze wrap and Carlos bandage. This should be done daily. All questions were answered to patient satisfaction. Continue IV antibiotics per ID for infectious disease Follow cultures. Surgical shoe for ambulation to heel on left side Podiatry will continue to follow Follow up with Dr George in 2 weeks after DC. At DC dressing to stay clean dry and intact until follow up appointment. Can be changed with gauze dressing if gets wet or loose. Please contact office if any concerns Please contact if any questions arise.
--- NOTE | 2020-02-15 11:26 | PN_ITS ---
Patient Problems: Active and Suspected Problems (Last Reviewed 01/14/20 @ 00:[address] Gen Butt MD) Severe sepsis (Acute) Diabetic foot infection (Acute) Osteomyelitis of great toe of left foot (Acute) Reason for Visit: osteomyelitis Subjective: Pain in her foot post op. Vitals/I&O's: Vital Signs Temp Pulse Resp BP Pulse Ox 36.6 C 48 L 16 126/85 H 98 02/15/20 08:04 02/15/20 08:04 02/15/20 08:04 02/15/20 08:04 02/15/20 08:04 Oxygen Flow Rate (L/min) 2 Oxygen Delivery Method Room Air Weight: 105.6 kg Body Mass Index (BMI) 42.4 Finger Stick Blood Glucose 143 Intake and Output for Last 24 Hours 02/13/20 02/14/20 02/15/20 23:59 23:59 23:59 Intake Total 3579.84 / 3579.84 2167.67 / 3087.67 2627.33 / 2627.33 Output Total 3450 / 3450 2250 / 2800 1250 / 1250 Balance 129.84 / 129.84 -82.33 / 287.67 1377.33 / 1377.33 General: Alert, No apparent distress HEENT: Atraumatic, Normocephalic Oral: Moist Mucosa, No Gingival or Mucosal Lesions/ Ulcerations Neck: No Nodes, Thyroid Normal Size and Texture Lungs: Clear to auscultation, Normal air movement, No rhonchi, No wheeze, No rales Cardiovascular: Regular rate, Regular Rhythm, Normal S1, Normal S2, No murmurs Abdomen: Bowel Sounds Present, Soft, Non Tender, Non-Distended, No Hepato- splenomegaly Extremities: No edema, No Calf Tenderness Skin: No rashes, No breakdown Psych/Mental Status: Normal Affect, Appropriate Microbiology Past 72 Hours 02/13/20 10:35 Wound - Toe Gram Stain - Final 02/13/20 10:35 Wound - Toe Wound Culture - Preliminary Streptococcus agalactiae (B) Coag Negative Staph 02/12/20 16:43 Blood Culture (Wb) - Anticubital Right Blood Culture - Preliminary No growth in 48 hours. 02/12/20 15:47 Blood Culture (Wb) - Left Forearm Blood Culture - Preliminary No growth in 48 hours. 02/12/20 16:05 Urine Catheter - Morales Urine Culture - Preliminary Klebsiella pneumoniae sp pneum Gram negative sue Staphylococcus haemolyticus Laboratory Results 02/14/20 12:56: POC Glucose 112 H 02/14/20 13:13: Serum , Qual NEGATIVE 02/14/20 16:09: POC Glucose 143 H 02/14/20 21:35: POC Glucose 306 H 02/15/20 06:32: POC Glucose 276 H Current Medications Acetaminophen (Tylenol) 650 mg PO Q6H PRN PRN PRN Reason: Pain Score 1-10/Temp > 100.7 F Last Admin: 02/15/20 08:30 Dose: 650 mg Documented by: Al Hydroxide/Mg Hydroxide (Mylanta Ii) 30 ml PO Q6H PRN PRN PRN Reason: Gastric Burning Atorvastatin Calcium (Lipitor) 20 mg PO QHS [facility] Last Admin: 02/14/20 21:37 Dose: 20 mg Documented by: Enoxaparin Sodium (Lovenox) 40 mg SC DAILY [facility] Last Admin: 02/15/20 11:22 Dose: 40 mg Documented by: Piperacillin Sod/Tazobactam (Sod 3.375 gm/ Sodium Chloride) 50 mls @ 12.5 mls/hr IV Q8 [facility] Last Infusion: 02/15/20 10:33 Dose: Infused Documented by: Vancomycin IV Pharmacy to Dose (1 ea/ Sodium Chloride) 500 mls @ 250 mls/hr IV PRN PRN; Protocol PRN Reason: Rx to Dose Vancomycin HCl 1,750 mg/ (Sodium Chloride) 535 mls @ 250 mls/hr IV Q12H [facility] Last Infusion: 02/15/20 06:08 Dose: Infused Documented by: Sodium Chloride () 250 mls @ 15 mls/hr IV .[id number] PRN PRN Reason: Saline Flush Last Infusion: 02/15/20 06:33 Dose: 0 mls/hr Documented by: Sodium Chloride () 250 mls @ 15 mls/hr IV .[id number] PRN PRN Reason: Additional IVPB Infusion Lactated Ringer's () 1,000 mls @ 100 mls/hr IV .Q10H [facility] Last Admin: 02/15/20 08:07 Dose: 100 mls/hr Documented by: Insulin Glargine (Lantus (Bkc)) 15 units SC QHS [facility] Last Admin: 02/14/20 21:38 Dose: 15 units Documented by: Insulin Human Lispro (Humalog Kwikpen ([facility])) 0 unit SC ACHS [facility]; Protocol Last Admin: 02/15/20 11:24 Dose: 5 units Documented by: Melatonin (Melatonin) 3 mg PO QHS PRN PRN PRN Reason: INSOMNIA Ondansetron HCl (Zofran) 4 mg IV Q8H PRN PRN PRN Reason: NAUSEA/VOMITING Oxycodone HCl (Oxyir) 5 mg PO Q4H PRN PRN PRN Reason: Pain Score 4-10/10 Last Admin: 02/15/20 08:13 Dose: 5 mg Documented by: Polyethylene Glycol (Miralax) 17 gm PO BID [facility] Last Admin: 02/15/20 08:27 Dose: Not Given Documented by: Sodium Chloride () 10 - 40 ml IV UD PRN PRN Reason: SALINE FLUSH Last Admin: 02/14/20 21:37 Dose: 10 ml Documented by: Tolterodine Tartrate (Detrol La) 4 mg PO DAILY [facility] Last Admin: 02/15/20 08:26 Dose: 4 mg Documented by: STROKE Vital Signs/Narrative: Vital Signs Temp Pulse Resp BP Pulse Ox 02/15/20 08:04 36.6 C 48 L 16 126/85 H 98 Medical Necessity - Tobacco Use Smoking Status: Never smoker Tobacco Use: Non-smoker, Secondhand Assessment/Plan All Active Problems (Last Reviewed 01/14/20 @ 00:[address] Gen Butt MD) Cellulitis (Acute) Severe sepsis (Acute) Diabetic foot infection (Acute) Osteomyelitis of great toe of left foot (Acute) UTI (urinary tract infection) (Resolved) 1. Severe sepsis: * POA 2/2 cellulitis and osteomyelitis * suspect colonization onf UCx 2. L great toe osteomyelitis and LLE cellulitis * 02/13 partial amputation left great toe. * pip/tazo and vanc * ID and podiatry following * Cx from showed GBS and [employer]ING [employer]IST[employer] 3. DM2 * elevated today * on Basal insulin and SSI 4. VTE prophylaxis: LMWH Inpatient E&M: [id number] Subs Hosp L2
[2020-02-15 11:36] LABS: Bedside Glucose 332 mg/dL (70-110)
[2020-02-15 14:29] VITALS: BP 124/83; PULSE 58; RESP 18; TEMP 36.7; O2SAT 96
[2020-02-15] MEDS: Furosemide 20 MG Tablet PO (16:38)
[2020-02-15 16:55] LABS: Bedside Glucose 340 mg/dL (70-110)
[2020-02-15 19:50] VITALS: BP 125/69; PULSE 71; RESP 18; TEMP 36.7; O2SAT 98
[2020-02-15] MEDS: Atorvastatin Calcium 20 MG Tablet PO (21:35)
[2020-02-15] MEDS: Propranolol 10 MG Tablet PO (21:35)
[2020-02-15] MEDS: traZODone 50 MG Tablet PO (21:35)
[2020-02-15 21:46] LABS: Bedside Glucose 344 mg/dL (70-110)
[2020-02-16 01:55] VITALS: BP 110/57; PULSE 66; RESP 16; TEMP 36.6; O2SAT 97
[2020-02-16 04:52] LABS: Absolute Lymphocyte Count 2.53 X10^3/uL (0.83-4.51); Absolute Neutrophil Count 7.3 X10^3/uL (2.0-7.7); Basophil# 0.04 X10^3/uL; Basophil% 0.4 % (0-1); Eosinophil# 0.06 X10^3/uL; Eosinophils% 0.5 % (0-5); Hematocrit 31.2 % (37-47); Hemoglobin 10.1 g/dL (12.0-15.0); Lymphocyte # 2.53 X10^3/ul (4.0); Lymphocyte % 22.3 % (19-41); Mean Corp Hgb Conc 32.4 g/dL (32-36); Mean Corpuscular Hgb 30.1 pg (27.0-32.0); Mean Corpuscular Volume 92.9 fL (81-99); Mean Platelet Vol. 10.9 fl (6.2-12.0); Monocyte# 1.17 X10^3/uL; Monocyte% 10.3 % (0-10); NRBC Flagged by Analyzer 0.2 % (0-5); Neutrophil # 7.27 X10^3/uL (2.7-7.7); Platelet Count 161 K/mm3 (150-450); RBC Distribution Width CV 13.2 % (11.6-14.6); RBC Distribution Width SD 44.9 fl (35.1-43.9); Red Blood Count 3.36 M/mm3 (4.2-5.4); White Blood Count 11.4 K/mm3 (4.4-11.0)
[2020-02-16 05:03] LABS: Anion Gap 7 (5-15); BUN 21 mg/dL (7-18); BUN/Creat Ratio 15.4 RATIO (10-20); Calcium,Total 8.3 mg/dL (8.5-10.1); Chloride 110 mmol/L (98-107); Creatinine, Serum 1.36 mg/dL (0.55-1.02); EST Glomerular Filtration Rate 46 mL/min (>60); Est Glom Filt Rate - Afr Amer 56 mL/min (>60); Estimated Creatinine Clearance 44.36 ml/min; Glucose 203 mg/dL (74-106); Potassium 3.4 mmol/L (3.5-5.1); Sodium Level 141 mmol/L (136-145)
[2020-02-16] MEDS: Insulin Lispro 100 UNIT/ML INSULN.PEN SC ×3 (06:32→21:21)
[2020-02-16 06:41] LABS: Bedside Glucose 167 mg/dL (70-110)
[2020-02-16] MEDS: Lactated Ringers 1,000 ML 100 ML IV ×2 (07:35→16:46)
[2020-02-16 07:36] VITALS: BP 120/76; PULSE 72; RESP 16; TEMP 36.7; O2SAT 95
[2020-02-16] MEDS: 0.9% Saline Lock 10 ML Syringe IV ×2 (09:24→14:09)
[2020-02-16] MEDS: Ondansetron 4 MG/2 ML Vial IV (09:24)
--- NOTE | 2020-02-16 09:27 | NURSING ---
PT C/O NAUSEA. DOES WANT TO TAKE ANY AM MEDS AT THIS TIME. MEDICATED WITH ZOFRAN PER PRN ORDER.
--- NOTE | 2020-02-16 10:24 | NURSING ---
Pt C/O nausea earlier this am - zofran given as ordered but ineffective. Pt now C/O continued nausea & chills. Dr Encarnacion aware - new orders received.
[2020-02-16] MEDS: Acetaminophen 325 MG Tablet 650 MG PO ×2 (10:53→17:41)
[2020-02-16] MEDS: Furosemide 40 MG Tablet PO (10:54)
[2020-02-16] MEDS: Tolterodine Tartrate 4 MG CAP.SA PO (10:54)
[2020-02-16] MEDS: Propranolol 10 MG Tablet PO ×2 (10:54→21:21)
[2020-02-16] MEDS: Lisinopril 2.5 MG Tablet PO (10:55)
[2020-02-16] MEDS: Pantoprazole Sodium 40 MG Tablet PO ×2 (11:12)
[2020-02-16] MEDS: oxyCODONE 5 MG Tablet PO ×3 (11:13→21:53)
--- NOTE | 2020-02-16 11:17 | PCM.PN.HOSP ---
Patient Problems: Active and Suspected Problems (Last Reviewed 01/14/20 @ 00:[address] Gen Butt MD) Severe sepsis (Acute) Diabetic foot infection (Acute) Osteomyelitis of great toe of left foot (Acute) Reason for Visit: osteomylitis Subjective: pain is improved. Vitals/I&O's: Vital Signs Temp Pulse Resp BP Pulse Ox 36.7 C 72 16 120/76 95 02/16/20 07:36 02/16/20 07:36 02/16/20 07:36 02/16/20 07:36 02/16/20 07:36 Oxygen Flow Rate (L/min) 2 Oxygen Delivery Method Room Air Weight: 105.2 kg Body Mass Index (BMI) 42.4 Finger Stick Blood Glucose 143 Intake and Output for Last 24 Hours 02/14/20 02/15/20 02/16/20 23:59 23:59 23:59 Intake Total 2167.67 / 3087.67 5565.83 / 5565.83 1546.67 / 1546.67 Output Total 2250 / 2800 2900 / 2900 1475 / 1475 Balance -82.33 / 287.67 2665.83 / 2665.83 71.67 / 71.67 General: Alert, No apparent distress Extremities: Edema Skin: No rashes, No breakdown Psych/Mental Status: Normal Affect, Appropriate Microbiology Past 72 Hours 02/14/20 15:24 Wound - Aerobic & Anaerobic Swabs Gram Stain - Final 02/14/20 15:24 Wound - Aerobic & Anaerobic Swabs Wound Culture - Preliminary Mixed Gram Positive Organisms 02/13/20 10:35 Wound - Toe Gram Stain - Final 02/13/20 10:35 Wound - Toe Wound Culture - Preliminary Streptococcus agalactiae (B) Coag Negative Staph Gram positive sue 02/12/20 16:05 Urine Catheter - Morales Urine Culture - Final Klebsiella pneumoniae sp pneum Pseudomonas fluorescens Staphylococcus haemolyticus 02/12/20 16:43 Blood Culture (Wb) - Anticubital Right Blood Culture - Preliminary No growth in 48 hours. 02/12/20 15:47 Blood Culture (Wb) - Left Forearm Blood Culture - Preliminary No growth in 48 hours. Laboratory Results 02/15/20 11:21: POC Glucose 332 H 02/15/20 16:38: POC Glucose 340 H 02/15/20 21:33: POC Glucose 344 H 02/16/20 04:25: WBC 11.4 H, RBC 3.36 L, Hgb 10.1 L, Hct 31.2 L, MCV 92.9, MCH 30.1, MCHC 32.4, RDW Std Deviation 44.9 H, RDW Coeff of Claude 13.2, Plt Count 161, MPV 10.9, Immature Gran % (Auto) 2.500 H, Neut % (Auto) 64.0, Lymph % (Auto) 22.3, Prentiss % (Auto) 10.3 H, Eos % (Auto) 0.5, Baso % (Auto) 0.4, Absolute Neuts (auto) 7.3, Absolute Lymphs (auto) 2.53, Nucleated RBC % 0.2 02/16/20 04:25: Sodium 141, Potassium 3.4 L, Chloride 110 H, Carbon Dioxide 24.0, Anion Gap 7, BUN 21 H, Creatinine 1.36 H, Estim Creat Clear Calc 44.36, Est GFR (MDRD) Af Amer 56 L, Est GFR (MDRD) Non-Af 46 L, BUN/Creatinine Ratio 15.4, Glucose 203 H, Calcium 8.3 L 02/16/20 06:29: POC Glucose 167 H Current Medications Acetaminophen (Tylenol) 650 mg PO Q6H PRN PRN PRN Reason: Pain Score 1-10/Temp > 100.7 F Last Admin: 02/16/20 10:53 Dose: 650 mg Documented by: Al Hydroxide/Mg Hydroxide (Mylanta Ii) 30 ml PO Q6H PRN PRN PRN Reason: Gastric Burning Atorvastatin Calcium (Lipitor) 20 mg PO QHS [facility] Last Admin: 02/15/20 21:35 Dose: 20 mg Documented by: Enoxaparin Sodium (Lovenox) 40 mg SC DAILY [facility] Last Admin: 02/16/20 10:55 Dose: Not Given Documented by: Furosemide (Lasix) 20 mg PO DAILY@1700 [facility] Last Admin: 02/15/20 16:38 Dose: 20 mg Documented by: Furosemide (Lasix) 40 mg PO BREAKFAST [facility] Last Admin: 02/16/20 10:54 Dose: 40 mg Documented by: Piperacillin Sod/Tazobactam (Sod 3.375 gm/ Sodium Chloride) 50 mls @ 12.5 mls/hr IV Q8 [facility] Last Admin: 02/16/20 06:31 Dose: 12.5 mls/hr Documented by: Vancomycin IV Pharmacy to Dose (1 ea/ Sodium Chloride) 500 mls @ 250 mls/hr IV PRN PRN; Protocol PRN Reason: Rx to Dose Vancomycin HCl 1,750 mg/ (Sodium Chloride) 535 mls @ 250 mls/hr IV Q12H [facility] Last Infusion: 02/16/20 06:26 Dose: Infused Documented by: Sodium Chloride () 250 mls @ 15 mls/hr IV .[id number] PRN PRN Reason: Saline Flush Last Infusion: 02/15/20 22:32 Dose: Infused Documented by: Sodium Chloride () 250 mls @ 15 mls/hr IV .[id number] PRN PRN Reason: Additional IVPB Infusion Lactated Ringer's () 1,000 mls @ 100 mls/hr IV .Q10H [facility] Last Admin: 02/16/20 07:35 Dose: 100 mls/hr Documented by: Insulin Glargine (Lantus (Bkc)) 15 units SC QHS [facility] Last Admin: 02/15/20 21:35 Dose: 15 units Documented by: Insulin Human Lispro (Humalog Kwikpen (Bk)) 0 unit SC ACHS [facility]; Protocol Last Admin: 02/16/20 06:32 Dose: 1 units Documented by: Lisinopril (Zestril) 2.5 mg PO DAILY [facility] Last Admin: 02/16/20 10:55 Dose: 2.5 mg Documented by: Melatonin (Melatonin) 3 mg PO QHS PRN PRN PRN Reason: INSOMNIA Ondansetron HCl (Zofran) 4 mg IV Q8H PRN PRN PRN Reason: NAUSEA/VOMITING Last Admin: 02/16/20 09:24 Dose: 4 mg Documented by: Oxycodone HCl (Oxyir) 5 mg PO Q4H PRN PRN PRN Reason: Pain Score 4-10/10 Last Admin: 02/16/20 11:13 Dose: 5 mg Documented by: Pantoprazole Sodium (Protonix) 40 mg PO DAILY [facility] Last Admin: 02/16/20 11:12 Dose: 40 mg Documented by: Polyethylene Glycol (Miralax) 17 gm PO BID [facility] Last Admin: 02/16/20 10:56 Dose: Not Given Documented by: Propranolol HCl (Inderal) 10 mg PO BID [facility] Last Admin: 02/16/20 10:54 Dose: 10 mg Documented by: Sodium Chloride () 10 - 40 ml IV UD PRN PRN Reason: SALINE FLUSH Last Admin: 02/16/20 09:24 Dose: 10 ml Documented by: Tolterodine Tartrate (Detrol La) 4 mg PO DAILY [facility] Last Admin: 02/16/20 10:54 Dose: 4 mg Documented by: Trazodone HCl (Desyrel) 50 mg PO QHS [facility] Last Admin: 02/15/20 21:35 Dose: 50 mg Documented by: STROKE Vital Signs/Narrative: Vital Signs Temp Pulse Resp BP Pulse Ox 02/16/20 07:36 36.7 C 72 16 120/76 95 Medical Necessity - Tobacco Use Smoking Status: Never smoker Tobacco Use: Non-smoker, Secondhand Assessment/Plan All Active Problems (Last Reviewed 01/14/20 @ 00:[address] Gen Butt MD) Cellulitis (Acute) Severe sepsis (Acute) Diabetic foot infection (Acute) Osteomyelitis of great toe of left foot (Acute) UTI (urinary tract infection) (Resolved) 1. Severe sepsis: POA 2/2 cellulitis and osteomyelitis suspect colonization of UCx 2. L great toe osteomyelitis and LLE cellulitis 02/13 partial amputation left great toe. pip/tazo and vanc ID and podiatry following Cx from showed GBS and CERTIFIED [employer] awaiting on final recs by ID 3. DM2 elevated today on Basal insulin and SSI 4. VTE prophylaxis: LMWH Inpatient E&M: 85298 Subs Hosp L1
[2020-02-16 14:00] VITALS: BP 95/61; PULSE 69; RESP 18; TEMP 36.7; O2SAT 96
--- NOTE | 2020-02-16 15:34 | PN_ITS ---
Patient Problems: Active and Suspected Problems (Last Reviewed 01/14/20 @ 00:[address] Gen Butt MD) Severe sepsis (Acute) Diabetic foot infection (Acute) Osteomyelitis of great toe of left foot (Acute) Subjective: Patient seen bedside with in the room. Patient reports some nausea that resolved once she ate lunch. Patient also reports significant improvement in pain to her left foot. Patient also admits to some chills. Patient denies F/V/SOB/coughing/diarrhea/constipation. - Physical Exam Vitals/I&O's: Vital Signs Temp Pulse Resp BP Pulse Ox 98.1 F 69 18 95/61 96 02/16/20 14:00 02/16/20 14:00 02/16/20 14:00 02/16/20 14:00 02/16/20 14:00 Oxygen Flow Rate (L/min) 2 Oxygen Delivery Method Room Air Weight: 105.2 kg Body Mass Index (BMI) 42.4 Finger Stick Blood Glucose 143 Intake and Output for Last 24 Hours 02/14/20 02/15/20 02/16/20 23:59 23:59 23:59 Intake Total 2167.67 / 3087.67 5565.83 / 5565.83 2396.67 / 2396.67 Output Total 2250 / 2800 2900 / 2900 2325 / 2325 Balance -82.33 / 287.67 2665.83 / 2665.83 71.67 / 71.67 General: Alert, Oriented x3 HEENT: Atraumatic Extremities: Capillary Refill Less than 3 Seconds, Edema, Peripheral Pulses Normal, - - Left: CFT to all digits left foot including ampuatation stump brisk. PT and DP 2/4. Skin is warm to the touch. Some edema noted to left lower extremity. Erythema improved. Sutures intact with skin well coapted. No drainage on dressing. No signs of necrosis at incision site. No purulence. Mild Pain to palpation of amputation site. Epicritic light touch sensation decreased. Muscle strength intact to all muscle groups. Left medial heel ulceration granular base, healilng appropriately, no SOI, no drainage, no probing Skin: Ulcer/ Wound, Incision Musculoskeletal: Tenderness Psych/Mental Status: Normal Affect, Appropriate Microbiology Past 72 Hours 02/13/20 10:35 Wound - Toe Gram Stain - Final 02/13/20 10:35 Wound - Toe Wound Culture - Final Streptococcus agalactiae (B) Coag Negative Staph Gram positive sue 02/14/20 15:24 Wound - Aerobic & Anaerobic Swabs Gram Stain - Final 02/14/20 15:24 Wound - Aerobic & Anaerobic Swabs Wound Culture - Preliminary Mixed Gram Positive Organisms 02/12/20 16:05 Urine Catheter - Morales Urine Culture - Final Klebsiella pneumoniae sp pneum Pseudomonas fluorescens Staphylococcus haemolyticus 02/12/20 16:43 Blood Culture (Wb) - Anticubital Right Blood Culture - P reliminary No growth in 48 hours. 02/12/20 15:47 Blood Culture (Wb) - Left Forearm Blood Culture - Preliminary No growth in 48 hours. Laboratory Results 02/15/20 16:38: POC Glucose 340 H 02/15/20 21:33: POC Glucose 344 H 02/16/20 04:25: WBC 11.4 H, RBC 3.36 L, Hgb 10.1 L, Hct 31.2 L, MCV 92.9, MCH 30.1, MCHC 32.4, RDW Std Deviation 44.9 H, RDW Coeff of Claude 13.2, Plt Count 161, MPV 10.9, Immature Gran % (Auto) 2.500 H, Neut % (Auto) 64.0, Lymph % (Auto) 22.3, [place]in % (Auto) 10.3 H, Eos % (Auto) 0.5, Baso % (Auto) 0.4, Absolute Neuts (auto) 7.3, Absolute Lymphs (auto) 2.53, Nucleated RBC % 0.2 02/16/20 04:25: Sodium 141, Potassium 3.4 L, Chloride 110 H, Carbon Dioxide 24.0, Anion Gap 7, BUN 21 H, Creatinine 1.36 H, Estim Creat Clear Calc 44.36, Est GFR (MDRD) Af Amer 56 L, Est GFR (MDRD) Non-Af 46 L, BUN/Creatinine Ratio 15.4, Glucose 203 H, Calcium 8.3 L 02/16/20 06:29: POC Glucose 167 H Current Medications Acetaminophen (Tylenol) 650 mg PO Q6H PRN PRN PRN Reason: Pain Score 1-10/Temp > 100.7 F Last Admin: 02/16/20 10:53 Dose: 650 mg Documented by: Al Hydroxide/Mg Hydroxide (Mylanta Ii) 30 ml PO Q6H PRN PRN PRN Reason: Gastric Burning Atorvastatin Calcium (Lipitor) 20 mg PO QHS [facility] Last Admin: 02/15/20 21:35 Dose: 20 mg Documented by: Enoxaparin Sodium (Lovenox) 40 mg SC DAILY [facility] Last Admin: 02/16/20 10:55 Dose: Not Given Documented by: Furosemide (Lasix) 20 mg PO DAILY@1700 [facility] Last Admin: 02/15/20 16:38 Dose: 20 mg Documented by: Furosemide (Lasix) 40 mg PO BREAKFAST [facility] Last Admin: 02/16/20 10:54 Dose: 40 mg Documented by: Piperacillin Sod/Tazobactam (Sod 3.375 gm/ Sodium Chloride) 50 mls @ 12.5 mls/hr IV Q8 [facility] Last Admin: 02/16/20 14:08 Dose: 12.5 mls/hr Documented by: Vancomycin IV Pharmacy to Dose (1 ea/ Sodium Chloride) 500 mls @ 250 mls/hr IV PRN PRN; Protocol PRN Reason: Rx to Dose Vancomycin HCl 1,750 mg/ (Sodium Chloride) 535 mls @ 250 mls/hr IV Q12H [facility] Last Infusion: 02/16/20 06:26 Dose: Infused Documented by: Sodium Chloride () 250 mls @ 15 mls/hr IV .[id number] PRN PRN Reason: Saline Flush Last Infusion: 02/15/20 22:32 Dose: Infused Documented by: Sodium Chloride () 250 mls @ 15 mls/hr IV .[id number] PRN PRN Reason: Additional IVPB Infusion Lactated Ringer's () 1,000 mls @ 100 mls/hr IV .Q10H [facility] Last Admin: 02/16/20 07:35 Dose: 100 mls/hr Documented by: Insulin Glargine (Lantus (Bkc)) 15 units SC QHS [facility] Last Admin: 02/15/20 21:35 Dose: 15 units Documented by: Insulin Human Lispro (Humalog Kwikpen (Bkc)) 0 unit SC ACHS [facility]; Protocol Last Admin: 02/16/20 13:24 Dose: Not Given Documented by: Lisinopril (Zestril) 2.5 mg PO DAILY [facility] Last Admin: 02/16/20 10:55 Dose: 2.5 mg Documented by: Melatonin (Melatonin) 3 mg PO QHS PRN PRN PRN Reason: INSOMNIA Ondansetron HCl (Zofran) 4 mg IV Q8H PRN PRN PRN Reason: NAUSEA/VOMITING Last Admin: 02/16/20 09:24 Dose: 4 mg Documented by: Oxycodone HCl (Oxyir) 5 mg PO Q4H PRN PRN PRN Reason: Pain Score 4-10/10 Last Admin: 02/16/20 11:13 Dose: 5 mg Documented by: Pantoprazole Sodium (Protonix) 40 mg PO DAILY [facility] Last Admin: 02/16/20 11:12 Dose: 40 mg Documented by: Polyethylene Glycol (Miralax) 17 gm PO BID [facility] Last Admin: 02/16/20 10:56 Dose: Not Given Documented by: Propranolol HCl (Inderal) 10 mg PO BID [facility] Last Admin: 02/16/20 10:54 Dose: 10 mg Documented by: Sodium Chloride () 10 - 40 ml IV UD PRN PRN Reason: SALINE FLUSH Last Admin: 02/16/20 14:09 Dose: 10 ml Documented by: Tolterodine Tartrate (Detrol La) 4 mg PO DAILY [facility] Last Admin: 02/16/20 10:54 Dose: 4 mg Documented by: Trazodone HCl (Desyrel) 50 mg PO QHS [facility] Last Admin: 02/15/20 21:35 Dose: 50 mg Documented by: Medical Necessity - Tobacco Use Smoking Status: Never smoker Tobacco Use: Non-smoker, Secondhand Assessment/Plan All Active Problems (Last Reviewed 01/14/20 @ 00:[address] 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 Medial heel ulcer stable no signs of infection Continue wound care with silver alginate to wound heel and nonadherant to hallux and cover with 4 x 4's gauze wrap and Carlos bandage. This can be done every few days All questions were answered to patient satisfaction. Continue IV antibiotics per ID for infectious disease Follow cultures. Surgical shoe for ambulation to heel on left side Podiatry will continue to follow Follow up with Dr George in 2 weeks after DC. At DC dressing to stay clean dry and intact until follow up appointment. Can be changed with gauze dressing if gets wet or loose. Please contact office if any concerns OK to DC from podiatry perspective Please contact if any questions arise.
[2020-02-16 16:30] LABS: Bedside Glucose 153 mg/dL (70-110)
[2020-02-16] MEDS: Furosemide 20 MG Tablet PO (16:50)
[2020-02-16 21:08] VITALS: BP 132/62; PULSE 83; RESP 18; TEMP 36.9; O2SAT 95
[2020-02-16] MEDS: traZODone 50 MG Tablet PO (21:20)
[2020-02-16] MEDS: Atorvastatin Calcium 20 MG Tablet PO (21:20)
[2020-02-16 22:21] LABS: Bedside Glucose 173 mg/dL (70-110)
[2020-02-17 03:08] VITALS: BP 114/66; PULSE 82; RESP 18; TEMP 36.9; O2SAT 94
[2020-02-17] MEDS: oxyCODONE 5 MG Tablet PO ×2 (03:12→22:10)
[2020-02-17] MEDS: Acetaminophen 325 MG Tablet 650 MG PO (03:12)
[2020-02-17 06:45] LABS: Bedside Glucose 99 mg/dL (70-110)
[2020-02-17] MEDS: Lactated Ringers 1,000 ML 100 ML IV ×2 (07:36→16:49)
--- NOTE | 2020-02-17 07:58 | PCM.RX.CS ---
Consult Pharmacy has been consulted to manage selected antiobiotic: Vancomycin Type of Consult: Follow-up Labs: Sodium 141 mmol/L (136-145) 02/16/20 04:25 Potassium 3.4 mmol/L (3.5-5.1) L 02/16/20 04:25 Chloride 110 mmol/L (98-107) H 02/16/20 04:25 Carbon Dioxide 24.0 mmol/L (21.0-32.0) 02/16/20 04:25 Anion Gap 7 (5-15) 02/16/20 04:25 BUN 21 mg/dL (7-18) H 02/16/20 04:25 Creatinine 1.36 mg/dL (0.55-1.02) H 02/16/20 04:25 Est GFR (MDRD) Af Amer 56 mL/min (>60) L 02/16/20 04:25 Est GFR (MDRD) Non-Af 46 mL/min (>60) L 02/16/20 04:25 BUN/Creatinine Ratio 15.4 RATIO (10-20) 02/16/20 04:25 Glucose 203 mg/dL (74-106) H 02/16/20 04:25 Vancomycin Trough 18.9 ug/mL (5.0-15.0) H 02/14/20 03:40 Microbiology: Microbiology 02/13/20 10:35 Wound - Toe Gram Stain - Final 02/13/20 10:35 Wound - Toe Wound Culture - Final Streptococcus agalactiae (B) Coag Negative Staph Gram positive sue 02/14/20 15:24 Wound - Aerobic & Anaerobic Swabs Gram Stain - Final 02/14/20 15:24 Wound - Aerobic & Anaerobic Swabs Wound Culture - Preliminary Mixed Gram Positive Organisms 02/12/20 16:05 Urine Catheter - Morales Urine Culture - Final Klebsiella pneumoniae sp pneum Pseudomonas fluorescens Staphylococcus haemolyticus 02/12/20 16:43 Blood Culture (Wb) - Anticubital Right Blood Culture - Preliminary No growth in 48 hours. 02/12/20 15:47 Blood Culture (Wb) - Left Forearm Blood Culture - Preliminary No growth in 48 hours. Goal Trough: 15-20 mcg/mL Pharmacy Plan for Drug Dosing: DAILY ASSESSMENT Current Vancomcyin Dose: 1750mg q12h (,16) Number of Doses Received: 9 doses of 1750mg and 1 dose of 1500mg Current Renal Function: 1.36 (up from 0.77) Renal Function Trend: SrCr increasing Lab/Micro: Any Change in Vanc Plan: recommend drawing trough 02/16 instead of 02/17 due to rising SrCr Pending Level: 02/17/20 at 1530 Pharmacy Service will continue to monitor and adjust dosing as required. Follow-Up Labs: Trough Vancomycin - 02/16 @ 1530
[2020-02-17] MEDS: Propranolol 10 MG Tablet PO ×2 (08:38→22:15)
[2020-02-17] MEDS: Furosemide 40 MG Tablet PO (08:38)
[2020-02-17] MEDS: Lisinopril 2.5 MG Tablet PO (08:39)
[2020-02-17] MEDS: Tolterodine Tartrate 4 MG CAP.SA PO (08:43)
[2020-02-17 09:00] VITALS: BP 109/68; PULSE 67; RESP 18; TEMP 36.8; O2SAT 94
--- NOTE | 2020-02-17 11:42 | PN_ITS ---
Patient Problems: Active and Suspected Problems (Last Reviewed 01/14/20 @ 00:[address] Gen Butt MD) Severe sepsis (Acute) Diabetic foot infection (Acute) Osteomyelitis of great toe of left foot (Acute) Reason for Visit: Leg feeling better. Vitals/I&O's: Vital Signs Temp Pulse Resp BP Pulse Ox 36.9 C 82 18 114/66 94 02/17/20 03:08 02/17/20 03:08 02/17/20 03:08 02/17/20 03:08 02/17/20 03:08 Oxygen Flow Rate (L/min) 2 Oxygen Delivery Method Room Air Weight: 106 kg Body Mass Index (BMI) 42.4 Finger Stick Blood Glucose 143 Intake and Output for Last 24 Hours 02/15/20 02/16/20 02/17/20 23:59 23:59 23:59 Intake Total 5565.83 / 5565.83 4940.00 / 5540.00 2535 / 2535 Output Total 2900 / 2900 5525 / 7525 3000 / 3000 Balance 2665.83 / 2665.83 -585.00 / -1985.00 -465 / -465 General: No apparent distress HEENT: Atraumatic, Normocephalic Extremities: - - left foot wrapped, did not remove. Skin: - - resolved erythema of LLE Psych/Mental Status: Normal Affect, Appropriate Microbiology Past 72 Hours 02/14/20 15:24 Wound - Aerobic & Anaerobic Swabs Gram Stain - Final 02/14/20 15:24 Wound - Aerobic & Anaerobic Swabs Wound Culture - Final Gram positive sue Gram positive seu#2 Coag Negative Staph 02/14/20 15:24 Wound - Aerobic & Anaerobic Swabs Anaerobic Culture - Preliminary Checking for anaerobes, further studies to follow. 02/13/20 10:35 Wound - Toe Gram Stain - Final 02/13/20 10:35 Wound - Toe Wound Culture - Final Streptococcus agalactiae (B) Coag Negative Staph Gram positive sue 02/12/20 16:05 Urine Catheter - Morales Urine Culture - Final Klebsiella pneumoniae sp pneum Pseudomonas fluorescens Staphylococcus haemolyticus 02/12/20 16:43 Blood Culture (Wb) - Anticubital Right Blood Culture - Preliminary No growth in 48 hours. 02/12/20 15:47 Blood Culture (Wb) - Left Forearm Blood Culture - Preliminary No growth in 48 hours. Laboratory Results 02/16/20 16:27: POC Glucose 153 H 02/16/20 21:14: POC Glucose 173 H 02/17/20 06:40: POC Glucose 99 Current Medications Acetaminophen (Tylenol) 650 mg PO Q6H PRN PRN PRN Reason: Pain Score 1-10/Temp > 100.7 F Last Admin: 02/17/20 03:12 Dose: 650 mg Documented by: Al Hydroxide/Mg Hydroxide (Mylanta Ii) 30 ml PO Q6H PRN PRN PRN Reason: Gastric Burning Atorvastatin Calcium (Lipitor) 20 mg PO QHS [facility] Last Admin: 02/16/20 21:20 Dose: 20 mg Documented by: Enoxaparin Sodium (Lovenox) 40 mg SC DAILY [facility] Last Admin: 02/17/20 09:07 Dose: Not Given Documented by: Furosemide (Lasix) 20 mg PO DAILY@1700 [facility] Last Admin: 02/16/20 16:50 Dose: 20 mg Documented by: Furosemide (Lasix) 40 mg PO BREAKFAST [facility] Last Admin: 02/17/20 08:38 Dose: 40 mg Documented by: Piperacillin Sod/Tazobactam (Sod 3.375 gm/ Sodium Chloride) 50 mls @ 12.5 mls/hr IV Q8 [facility] Last Infusion: 02/17/20 09:25 Dose: Infused Documented by: Vancomycin IV Pharmacy to Dose (1 ea/ Sodium Chloride) 500 mls @ 250 mls/hr IV PRN PRN; Protocol PRN Reason: Rx to Dose Vancomycin HCl 1,750 mg/ (Sodium Chloride) 535 mls @ 250 mls/hr IV Q12H [facility] Last Infusion: 02/17/20 06:18 Dose: Infused Documented by: Sodium Chloride () 250 mls @ 15 mls/hr IV .[id number] PRN PRN Reason: Saline Flush Last Infusion: 02/15/20 22:32 Dose: Infused Documented by: Sodium Chloride () 250 mls @ 15 mls/hr IV .[id number] PRN PRN Reason: Additional IVPB Infusion Lactated Ringer's () 1,000 mls @ 100 mls/hr IV .Q10H [facility] Last Admin: 02/17/20 07:36 Dose: 100 mls/hr Documented by: Insulin Glargine (Lantus (Bkc)) 15 units SC QHS [facility] Last Admin: 02/16/20 21:22 Dose: 15 units Documented by: Insulin Human Lispro (Humalog Kwikpen ([facility])) 0 unit SC [facility]; Protocol Last Admin: 02/17/20 06:41 Dose: Not Given Documented by: Lisinopril (Zestril) 2.5 mg PO DAILY [facility] Last Admin: 02/17/20 08:39 Dose: 2.5 mg Documented by: Melatonin (Melatonin) 3 mg PO QHS PRN PRN PRN Reason: INSOMNIA Ondansetron HCl (Zofran) 4 mg IV Q8H PRN PRN PRN Reason: NAUSEA/VOMITING Last Admin: 02/16/20 09:24 Dose: 4 mg Documented by: Oxycodone HCl (Oxyir) 5 mg PO Q4H PRN PRN PRN Reason: Pain Score 4-10/10 Last Admin: 02/17/20 03:12 Dose: 5 mg Documented by: Pantoprazole Sodium (Protonix) 40 mg PO DAILY [facility] Last Admin: 02/16/20 11:12 Dose: 40 mg Documented by: Polyethylene Glycol (Miralax) 17 gm PO BID [facility] Last Admin: 02/17/20 09:08 Dose: Not Given Documented by: Propranolol HCl (Inderal) 10 mg PO BID [facility] Last Admin: 02/17/20 08:38 Dose: 10 mg Documented by: Sodium Chloride () 10 - 40 ml IV UD PRN PRN Reason: SALINE FLUSH Last Admin: 02/16/20 14:09 Dose: 10 ml Documented by: Tolterodine Tartrate (Detrol La) 4 mg PO DAILY [facility] Last Admin: 02/17/20 08:43 Dose: 4 mg Documented by: Trazodone HCl (Desyrel) 50 mg PO QHS [facility] Last Admin: 02/16/20 21:20 Dose: 50 mg Documented by: Medical Necessity - Tobacco Use Smoking Status: Never smoker Tobacco Use: Non-smoker, Secondhand Assessment/Plan All Active Problems (Last Reviewed 01/14/20 @ 00:[address] Gen Butt MD) Cellulitis (Acute) Severe sepsis (Acute) Diabetic foot infection (Acute) Osteomyelitis of great toe of left foot (Acute) UTI (urinary tract infection) (Resolved) 1. Severe sepsis: * POA 2/2 cellulitis and osteomyelitis * suspect colonization of UCx 2. L great toe osteomyelitis and LLE cellulitis * 02/13 partial amputation left great toe. * pip/tazo and vanc * ID and podiatry following * Cx from showed GBS and [employer] * awaiting on final recs by ID 3. DM2 * elevated today * on Basal insulin and SSI 4. VTE prophylaxis: LMWH Inpatient E&M: [id number] Subs Hosp L1
[2020-02-17] MEDS: Insulin Lispro 100 UNIT/ML INSULN.PEN SC ×2 (11:58→21:55)
[2020-02-17 12:15] LABS: Bedside Glucose 192 mg/dL (70-110)
[2020-02-17 15:00] VITALS: BP 143/83; PULSE 71; RESP 18; TEMP 37.1; O2SAT 100
--- NOTE | 2020-02-17 15:03 | NURSING ---
Dressing was changed by podiatry yesterday and orders to leave dressing in place until follow up appt. will follow as needed.
--- NOTE | 2020-02-17 15:22 | PCM.PN.ID ---
Patient Problems: Active and Suspected Problems (Last Reviewed 01/14/20 @ 00:[address] Gen Butt MD) Severe sepsis (Acute) Diabetic foot infection (Acute) Osteomyelitis of great toe of left foot (Acute) Subjective: Feeling ok, no fever, no n/v/d. - Physical Exam Vitals/I&O's: Vital Signs Temp Pulse Resp BP Pulse Ox 98.2 F 67 18 109/68 94 02/17/20 09:00 02/17/20 09:00 02/17/20 09:00 02/17/20 09:00 02/17/20 09:00 Oxygen Flow Rate (L/min) 2 Oxygen Delivery Method Room Air Weight: 106 kg Body Mass Index (BMI) 42.4 Finger Stick Blood Glucose 143 Intake and Output for Last 24 Hours 02/15/20 02/16/20 02/17/20 23:59 23:59 23:59 Intake Total 5565.83 / 5565.83 4940.00 / 5540.00 2535 / 2535 Output Total 2900 / 2900 5525 / 7525 5500 / 5500 Balance 2665.83 / 2665.83 -585.00 / -1985.00 -2965 / -2965 General: Alert, Cooperative, No apparent distress Lungs: Clear to auscultation, Normal air movement Cardiovascular: Regular rate, Regular Rhythm Abdomen: Soft, Non Tender, Non-Distended Skin: Ulcer/ Wound - foot wrapped Microbiology Past 72 Hours 02/14/20 15:24 Wound - Aerobic & Anaerobic Swabs Gram Stain - Final 02/14/20 15:24 Wound - Aerobic & Anaerobic Swabs Wound Culture - Final Gram positive sue Gram positive sue#2 Coag Negative Staph 02/14/20 15:24 Wound - Aerobic & Anaerobic Swabs Anaerobic Culture - Preliminary Checking for anaerobes, further studies to follow. 02/13/20 10:35 Wound - Toe Gram Stain - Final 02/13/20 10:35 Wound - Toe Wound Culture - Final Streptococcus agalactiae (B) Coag Negative Staph Gram positive sue 02/12/20 16:05 Urine Catheter - Morales Urine Culture - Final Klebsiella pneumoniae sp pneum Pseudomonas fluorescens Staphylococcus haemolyticus 02/12/20 16:43 Blood Culture (Wb) - Anticubital Right Blood Culture - Preliminary No growth in 48 hours. 02/12/20 15:47 Blood Culture (Wb) - Left Forearm Blood Culture - Preliminary No growth in 48 hours. Laboratory Results 02/16/20 16:27: POC Glucose 153 H 02/16/20 21:14: POC Glucose 173 H 02/17/20 06:40: POC Glucose 99 02/17/20 11:56: POC Glucose 192 H Current Medications Acetaminophen (Tylenol) 650 mg PO Q6H PRN PRN PRN Reason: Pain Score 1-10/Temp > 100.7 F Last Admin: 02/17/20 03:12 Dose: 650 mg Documented by: Al Hydroxide/Mg Hydroxide (Mylanta Ii) 30 ml PO Q6H PRN PRN PRN Reason: Gastric Burning Atorvastatin Calcium (Lipitor) 20 mg PO QHS [facility] Last Admin: 02/16/20 21:20 Dose: 20 mg Documented by: Enoxaparin Sodium (Lovenox) 40 mg SC DAILY [facility] Last Admin: 02/17/20 09:07 Dose: Not Given Documented by: Furosemide (Lasix) 20 mg PO DAILY@1700 [facility] Last Admin: 02/16/20 16:50 Dose: 20 mg Documented by: Furosemide (Lasix) 40 mg PO BREAKFAST [facility] Last Admin: 02/17/20 08:38 Dose: 40 mg Documented by: Piperacillin Sod/Tazobactam (Sod 3.375 gm/ Sodium Chloride) 50 mls @ 12.5 mls/hr IV Q8 [facility] Last Admin: 02/17/20 13:01 Dose: 12.5 mls/hr Documented by: Vancomycin IV Pharmacy to Dose (1 ea/ Sodium Chloride) 500 mls @ 250 mls/hr IV PRN PRN; Protocol PRN Reason: Rx to Dose Vancomycin HCl 1,750 mg/ (Sodium Chloride) 535 mls @ 250 mls/hr IV Q12H [facility] Last Infusion: 02/17/20 06:18 Dose: Infused Documented by: Sodium Chloride () 250 mls @ 15 mls/hr IV .[id number] PRN PRN Reason: Saline Flush Last Infusion: 02/15/20 22:32 Dose: Infused Documented by: Sodium Chloride () 250 mls @ 15 mls/hr IV .[id number] PRN PRN Reason: Additional IVPB Infusion Lactated Ringer's () 1,000 mls @ 100 mls/hr IV .Q10H [facility] Last Admin: 02/17/20 07:36 Dose: 100 mls/hr Documented by: Insulin Glargine (Lantus (Bk)) 15 units SC QHS [facility] Last Admin: 02/16/20 21:22 Dose: 15 units Documented by: Insulin Human Lispro (Humalog Kwikpen ([facility])) 0 unit SC ACHS [facility]; Protocol Last Admin: 02/17/20 11:58 Dose: 2 units Documented by: Lisinopril (Zestril) 2.5 mg PO DAILY [facility] Last Admin: 02/17/20 08:39 Dose: 2.5 mg Documented by: Melatonin (Melatonin) 3 mg PO QHS PRN PRN PRN Reason: INSOMNIA Ondansetron HCl (Zofran) 4 mg IV Q8H PRN PRN PRN Reason: NAUSEA/VOMITING Last Admin: 02/16/20 09:24 Dose: 4 mg Documented by: Oxycodone HCl (Oxyir) 5 mg PO Q4H PRN PRN PRN Reason: Pain Score 4-10/10 Last Admin: 02/17/20 03:12 Dose: 5 mg Documented by: Pantoprazole Sodium (Protonix) 40 mg PO DAILY [facility] Last Admin: 02/16/20 11:12 Dose: 40 mg Documented by: Polyethylene Glycol (Miralax) 17 gm PO BID [facility] Last Admin: 02/17/20 09:08 Dose: Not Given Documented by: Propranolol HCl (Inderal) 10 mg PO BID [facility] Last Admin: 02/17/20 08:38 Dose: 10 mg Documented by: Sodium Chloride () 10 - 40 ml IV UD PRN PRN Reason: SALINE FLUSH Last Admin: 02/16/20 14:09 Dose: 10 ml Documented by: Tolterodine Tartrate (Detrol La) 4 mg PO DAILY [facility] Last Admin: 02/17/20 08:43 Dose: 4 mg Documented by: Trazodone HCl (Desyrel) 50 mg PO QHS [facility] Last Admin: 02/16/20 21:20 Dose: 50 mg Documented by: Medical Necessity - Tobacco Use Smoking Status: Never smoker Tobacco Use: Non-smoker, Secondhand Route of nutrition/ use of supplements: [] Nutritional Intake: [] IV Site: [] Morales Catheter: [] - Assessment/Plan Antibiotics: [] Assessment/Plan: [] Active and Suspected Problems (Last Reviewed 01/14/20 @ 00:[address] Gen Butt MD) Severe sepsis (Acute) Diabetic foot infection (Acute) severe sepsis with DM and spina bifida - Ucx with klebs, pseudomonas, CoNS. Cont vanc/zosyn. Covid (+) 01/21, has recovered. Taken to OR 02/14/[address] George for partial toe amputation. Surg clearance cx with GPRx2, CoNS. Wound cx also with GBS. Discussed options with her, plan will be for picc and iv abx. Will follow, d/w employment case manager
[2020-02-17 16:25] LABS: Vancomycin, Trough Level 43.8 ug/mL (5.0-15.0)
[2020-02-17] MEDS: Furosemide 20 MG Tablet PO (16:25)
[2020-02-17 17:06] LABS: Bedside Glucose 117 mg/dL (70-110)
--- NOTE | 2020-02-17 17:20 | PCM.PROGNOTE ---
Patient Problems: Active and Suspected Problems (Last Reviewed 01/14/20 @ 00:[address] Gen Butt MD) Severe sepsis (Acute) Diabetic foot infection (Acute) Osteomyelitis of great toe of left foot (Acute) Subjective: Patient was seen for follow up on left foot s/p partial 1st toe amp and ulcer medial left heel. She has no complaints. She is sitting up resting comfortably in bed eating dinner. No complaints of fever, chills, nausea or vomiting. She relates to less pain to the left foot. - Physical Exam Vitals/I&O's: Vital Signs Temp Pulse Resp BP Pulse Ox 98.7 F 71 18 143/83 H 100 02/17/20 15:00 02/17/20 15:00 02/17/20 15:00 02/17/20 15:00 02/17/20 15:00 Oxygen Flow Rate (L/min) 2 Oxygen Delivery Method Room Air Weight: 106 kg Body Mass Index (BMI) 42.4 Finger Stick Blood Glucose 143 Intake and Output for Last 24 Hours 02/15/20 02/16/20 02/17/20 23:59 23:59 23:59 Intake Total 5565.83 / 5565.83 4940.00 / 5540.00 3463.34 / 3463.34 Output Total 2900 / 2900 5525 / 7525 8100 / 8100 Balance 2665.83 / 2665.83 -585.00 / -1985.00 -4636.66 / -4636.66 General: Alert, Oriented x3, Cooperative, No apparent distress Extremities: Capillary Refill Less than 3 Seconds, No Calf Tenderness, Peripheral Pulses Normal, - - Resolved cellulitis to the left leg, there is trace erythema dorsal residual left 1st toe otherwise no erythema noted, there is some slight ecchymosis to the dorsal left 1st toe, medial left heel ulceration appears nearly healed at this time, the sutures at the amp site 1st toe intact with incision site well coapted, no dehiscene, no drainage, no crepitus, no fluctuance, no necrosis noted. There is some tenderness at the left 1st toe amp site, otherwise no other pain to the foot/ankle, left. No evidence of ischemia to the left foot or ankle. Microbiology Past 72 Hours 02/14/20 15:24 Wound - Aerobic & Anaerobic Swabs Gram Stain - Final 02/14/20 15:24 Wound - Aerobic & Anaerobic Swabs Wound Culture - Final Gram positive sue Gram positive sue#2 Coag Negative Staph 02/14/20 15:24 Wound - Aerobic & Anaerobic Swabs Anaerobic Culture - Preliminary Checking for anaerobes, further studies to follow. 02/13/20 10:35 Wound - Toe Gram Stain - Final 02/13/20 10:35 Wound - Toe Wound Culture - Final Streptococcus agalactiae (B) Coag Negative Staph Gram positive sue 02/12/20 16:05 Urine Catheter - Morales Urine Culture - Final Klebsiella pneumoniae sp pneum Pseudomonas fluorescens Staphylococcus haemolyticus 02/12/20 16:43 Blood Culture (Wb) - Anticubital Right Blood Culture - Preliminary No growth in 48 hours. 02/12/20 15:47 Blood Culture (Wb) - Left Forearm Blood Culture - Preliminary No growth in 48 hours. Laboratory Results 02/16/20 21:14: POC Glucose 173 H 02/17/20 06:40: POC Glucose 99 02/17/20 11:56: POC Glucose 192 H 02/17/20 15:15: Vancomycin Trough 43.8 H 02/17/20 16:28: POC Glucose 117 H Current Medications Acetaminophen (Tylenol) 650 mg PO Q6H PRN PRN PRN Reason: Pain Score 1-10/Temp > 100.7 F Last Admin: 02/17/20 03:12 Dose: 650 mg Documented by: Al Hydroxide/Mg Hydroxide (Mylanta Ii) 30 ml PO Q6H PRN PRN PRN Reason: Gastric Burning Atorvastatin Calcium (Lipitor) 20 mg PO QHS [facility] Last Admin: 02/16/20 21:20 Dose: 20 mg Documented by: Enoxaparin Sodium (Lovenox) 40 mg SC DAILY [facility] Last Admin: 02/17/20 09:07 Dose: Not Given Documented by: Furosemide (Lasix) 20 mg PO DAILY@1700 [facility] Last Admin: 02/17/20 16:25 Dose: 20 mg Documented by: Furosemide (Lasix) 40 mg PO BREAKFAST [facility] Last Admin: 02/17/20 08:38 Dose: 40 mg Documented by: Piperacillin Sod/Tazobactam (Sod 3.375 gm/ Sodium Chloride) 50 mls @ 12.5 mls/hr IV Q8 [facility] Last Admin: 02/17/20 13:01 Dose: 12.5 mls/hr Documented by: Vancomycin IV Pharmacy to Dose (1 ea/ Sodium Chloride) 500 mls @ 250 mls/hr IV PRN PRN; Protocol PRN Reason: Rx to Dose Sodium Chloride () 250 mls @ 15 mls/hr IV .[id number] PRN PRN Reason: Saline Flush Last Infusion: 02/15/20 22:32 Dose: Infused Documented by: Sodium Chloride () 250 mls @ 15 mls/hr IV .[id number] PRN PRN Reason: Additional IVPB Infusion Lactated Ringer's () 1,000 mls @ 100 mls/hr IV .Q10H [facility] Last Infusion: 02/17/20 16:53 Dose: 0 mls/hr Documented by: Insulin Glargine (Lantus ([facility])) 15 units SC QHS [facility] Last Admin: 02/16/20 21:22 Dose: 15 units Documented by: Insulin Human Lispro (Humalog Kwikpen ([facility])) 0 unit SC ACHS [facility]; Protocol Last Admin: 02/17/20 16:29 Dose: Not Given Documented by: Lisinopril (Zestril) 2.5 mg PO DAILY [facility] Last Admin: 02/17/20 08:39 Dose: 2.5 mg Documented by: Melatonin (Melatonin) 3 mg PO QHS PRN PRN PRN Reason: INSOMNIA Ondansetron HCl (Zofran) 4 mg IV Q8H PRN PRN PRN Reason: NAUSEA/VOMITING Last Admin: 02/16/20 09:24 Dose: 4 mg Documented by: Oxycodone HCl (Oxyir) 5 mg PO Q4H PRN PRN PRN Reason: Pain Score 4-10/10 Last Admin: 02/17/20 03:12 Dose: 5 mg Documented by: Pantoprazole Sodium (Protonix) 40 mg PO DAILY [facility] Last Admin: 02/16/20 11:12 Dose: 40 mg Documented by: Polyethylene Glycol (Miralax) 17 gm PO BID [facility] Last Admin: 02/17/20 09:08 Dose: Not Given Documented by: Propranolol HCl (Inderal) 10 mg PO BID [facility] Last Admin: 02/17/20 08:38 Dose: 10 mg Documented by: Sodium Chloride () 10 - 40 ml IV UD PRN PRN Reason: SALINE FLUSH Last Admin: 02/16/20 14:09 Dose: 10 ml Documented by: Tolterodine Tartrate (Detrol La) 4 mg PO DAILY [facility] Last Admin: 02/17/20 08:43 Dose: 4 mg Documented by: Trazodone HCl (Desyrel) 50 mg PO QHS [facility] Last Admin: 02/16/20 21:20 Dose: 50 mg Documented by: Medical Necessity - Tobacco Use Smoking Status: Never smoker Tobacco Use: Non-smoker, Secondhand Assessment/Plan All Active Problems (Last Reviewed 01/14/20 @ 00:[address] Gen Butt MD) Cellulitis (Acute) Severe sepsis (Acute) Diabetic foot infection (Acute) Osteomyelitis of great toe of left foot (Acute) UTI (urinary tract infection) (Resolved) Osteomyelitis distal phalanx left hallux s/p partial amputation on 02/14/2020 Cellulitis left lower extremity - much improved Ulcer down to dermal layer, left heel Diabetes type 2 Spina bifida Neuropathy lower extremities Morbid obesity, multiple comorbidities Reviewed findings, significant improvement noted to the left foot. Surgical site healing, ulcer medial left heel doing well. Reviewed cultures, and patient is on IV antibiotics Vanc/Zosyn per Dr. Alex, plan is for PICC to be placed. Patient relates she prefers to go to correction. Applied dry gauze, kerlix and richard dressing to left foot. No weightbearing left foot, keep foot elevated. Reviewed importance of proper blood sugar control to help optimize healing and foot/ankle health. Podiatry will continue to follow.
--- NOTE | 2020-02-17 17:43 | PCM.RX.CS ---
Consult Pharmacy has been consulted to manage selected antiobiotic: Vancomycin Type of Consult: Follow-up Labs: Sodium 141 mmol/L (136-145) 02/16/20 04:25 Potassium 3.4 mmol/L (3.5-5.1) L 02/16/20 04:25 Chloride 110 mmol/L (98-107) H 02/16/20 04:25 Carbon Dioxide 24.0 mmol/L (21.0-32.0) 02/16/20 04:25 Anion Gap 7 (5-15) 02/16/20 04:25 BUN 21 mg/dL (7-18) H 02/16/20 04:25 Creatinine 1.36 mg/dL (0.55-1.02) H 02/16/20 04:25 Est GFR (MDRD) Af Amer 56 mL/min (>60) L 02/16/20 04:25 Est GFR (MDRD) Non-Af 46 mL/min (>60) L 02/16/20 04:25 BUN/Creatinine Ratio 15.4 RATIO (10-20) 02/16/20 04:25 Glucose 203 mg/dL (74-106) H 02/16/20 04:25 Vancomycin Trough 43.8 ug/mL (5.0-15.0) H 02/17/20 15:15 Microbiology: Microbiology 02/14/20 15:24 Wound - Aerobic & Anaerobic Swabs Gram Stain - Final 02/14/20 15:24 Wound - Aerobic & Anaerobic Swabs Wound Culture - Final Gram positive sue Gram positive sue#2 Coag Negative Staph 02/14/20 15:24 Wound - Aerobic & Anaerobic Swabs Anaerobic Culture - Preliminary Checking for anaerobes, further studies to follow. 02/13/20 10:35 Wound - Toe Gram Stain - Final 02/13/20 10:35 Wound - Toe Wound Culture - Final Streptococcus agalactiae (B) Coag Negative Staph Gram positive sue 02/12/20 16:05 Urine Catheter - Morales Urine Culture - Final Klebsiella pneumoniae sp pneum Pseudomonas fluorescens Staphylococcus haemolyticus 02/12/20 16:43 Blood Culture (Wb) - Anticubital Right Blood Culture - Preliminary No growth in 48 hours. 02/12/20 15:47 Blood Culture (Wb) - Left Forearm Blood Culture - Preliminary No growth in 48 hours. Goal Trough: 15-20 mcg/mL Pharmacy Plan for Drug Dosing: VANCOMYCIN LEVEL RECEIVED Current Vancomycin Dose: 1750MG Q12H Number of Doses Received: 9 (1750MG) AND 1 (1500MG) Vancomycin Level: 43.8 MG/DL Hours Since Last Dose: 11 Renal Function: 1.36 (64.2 ML/MIN USING ADJUSTED BODY WEIGHT) Renal Function Trend: INCREASED FROM 0.77 (02/13) Vancomycin Plan/Comments: HOLD VANCOMYCIN AND GET A LEVEL IN 24 HOURS. 1750MG DOSE WAS HUNG AT 1640. SPOKE TO NURSE AROUND 1710 AND ASKED TO STOPPED INFUSION. Pharmacy Service will continue to monitor and adjust dosing as required. Labs to be done on [date and time ordered]: RANDOM LEVEL: 02/18/20 @ 1734
[2020-02-17] MEDS: traZODone 50 MG Tablet PO (21:53)
[2020-02-17] MEDS: Atorvastatin Calcium 20 MG Tablet PO (21:59)
[2020-02-17 22:02] VITALS: BP 129/80; PULSE 63; RESP 18; TEMP 36.9; O2SAT 96
[2020-02-17 22:11] LABS: Bedside Glucose 183 mg/dL (70-110)
[2020-02-18 00:15] LABS: Bedside Glucose 97 mg/dL (70-110)
[2020-02-18] MEDS: Acetaminophen 325 MG Tablet 650 MG PO ×2 (01:01→21:57)
[2020-02-18 05:05] VITALS: BP 117/78; PULSE 57; RESP 18; TEMP 36.4; O2SAT 97
[2020-02-18] MEDS: Lactated Ringers 1,000 ML 100 ML IV ×2 (06:32→16:08)
[2020-02-18 06:51] LABS: Bedside Glucose 104 mg/dL (70-110)
[2020-02-18] MEDS: Tolterodine Tartrate 4 MG CAP.SA PO (08:10)
[2020-02-18] MEDS: Furosemide 40 MG Tablet PO (08:10)
[2020-02-18] MEDS: Propranolol 10 MG Tablet PO ×2 (08:10→21:40)
[2020-02-18] MEDS: Lisinopril 2.5 MG Tablet PO (08:11)
[2020-02-18] MEDS: Pantoprazole Sodium 40 MG Tablet PO (08:11)
--- NOTE | 2020-02-18 08:13 | NURSING ---
wound photo: left medial heel
--- NOTE | 2020-02-18 08:14 | NURSING ---
wound photo: left great toe
--- NOTE | 2020-02-18 08:15 | NURSING ---
wound photo: left great toe
[2020-02-18] MEDS: oxyCODONE 5 MG Tablet PO ×2 (08:16→21:26)
--- NOTE | 2020-02-18 09:54 | PCM.PN.ID ---
Patient Problems: Active and Suspected Problems (Last Reviewed 01/14/20 @ 00:[address] Gen Butt MD) Severe sepsis (Acute) Diabetic foot infection (Acute) Osteomyelitis of great toe of left foot (Acute) Subjective: Not feeling well today, having nausea and poor appetite. No fever. - Physical Exam Vitals/I&O's: Vital Signs Temp Pulse Resp BP Pulse Ox 97.6 F L 57 L 18 117/78 97 02/18/20 05:05 02/18/20 05:05 02/18/20 05:05 02/18/20 05:05 02/18/20 05:05 Oxygen Flow Rate (L/min) 2 Oxygen Delivery Method Room Air Weight: 105.687 kg Body Mass Index (BMI) 42.4 Finger Stick Blood Glucose 143 Intake and Output for Last 24 Hours 02/16/20 02/17/20 02/18/20 23:59 23:59 23:59 Intake Total 4940.00 / 5540.00 4575.84 / 4575.84 1343.33 / 1343.33 Output Total 5525 / 7525 51065 / 36395 400 / 400 Balance -585.00 / -1985.00 -7374.16 / -7374.16 943.33 / 943.33 General: Alert, Cooperative, No apparent distress Lungs: Clear to auscultation, Normal air movement Cardiovascular: Regular rate, Regular Rhythm Abdomen: Soft, Non Tender, Non-Distended Skin: Ulcer/ Wound - reviewed wound photo Microbiology Past 72 Hours 02/12/20 16:43 Blood Culture (Wb) - Anticubital Right Blood Culture - Final No growth in 5 days. 02/12/20 15:47 Blood Culture (Wb) - Left Forearm Blood Culture - Final No growth in 5 days. 02/14/20 15:24 Wound - Aerobic & Anaerobic Swabs Gram Stain - Final 02/14/20 15:24 Wound - Aerobic & Anaerobic Swabs Wound Culture - Final Gram positive sue Gram positive sue#2 Coag Negative Staph 02/14/20 15:24 Wound - Aerobic & Anaerobic Swabs Anaerobic Culture - Preliminary Checking for anaerobes, further studies to follow. 02/13/20 10:35 Wound - Toe Gram Stain - Final 02/13/20 10:35 Wound - Toe Wound Culture - Final Streptococcus agalactiae (B) Coag Negative Staph Gram positive sue 02/12/20 16:05 Urine Catheter - Morales Urine Culture - Final Klebsiella pneumoniae sp pneum Pseudomonas fluorescens Staphylococcus haemolyticus Laboratory Results 02/16/20 11:38: POC Glucose 97 02/17/20 11:56: POC Glucose 192 H 02/17/20 15:15: Vancomycin Trough 43.8 H 02/17/20 16:28: POC Glucose 117 H 02/17/20 21:55: POC Glucose 183 H 02/18/20 06:36: POC Glucose 104 02/18/20 09:26: Sodium Pending, Potassium Pending, Chloride Pending, Carbon Dioxide Pending, Anion Gap Pending, BUN Pending, Creatinine Pending, Est GFR (MDRD) Af Amer Pending, Est GFR (MDRD) Non-Af Pending, BUN/Creatinine Ratio Pending, Glucose Pending, Calcium Pending Current Medications Acetaminophen (Tylenol) 650 mg PO Q6H PRN PRN PRN Reason: Pain Score 1-10/Temp > 100.7 F Last Admin: 02/18/20 01:01 Dose: 650 mg Documented by: Al Hydroxide/Mg Hydroxide (Mylanta Ii) 30 ml PO Q6H PRN PRN PRN Reason: Gastric Burning Atorvastatin Calcium (Lipitor) 20 mg PO QHS [facility] Last Admin: 02/17/20 21:59 Dose: 20 mg Documented by: Enoxaparin Sodium (Lovenox) 40 mg SC DAILY [facility] Last Admin: 02/17/20 09:07 Dose: Not Given Documented by: Furosemide (Lasix) 20 mg PO DAILY@1700 [facility] Last Admin: 02/17/20 16:25 Dose: 20 mg Documented by: Furosemide (Lasix) 40 mg PO BREAKFAST [facility] Last Admin: 02/18/20 08:10 Dose: 40 mg Documented by: Vancomycin IV Pharmacy to Dose (1 ea/ Sodium Chloride) 500 mls @ 250 mls/hr IV PRN PRN; Protocol PRN Reason: Rx to Dose Sodium Chloride () 250 mls @ 15 mls/hr IV .[id number] PRN PRN Reason: Saline Flush Last Infusion: 02/15/20 22:32 Dose: Infused Documented by: Sodium Chloride () 250 mls @ 15 mls/hr IV .[id number] PRN PRN Reason: Additional IVPB Infusion Lactated Ringer's () 1,000 mls @ 100 mls/hr IV .Q10H [facility] Last Admin: 02/18/20 06:32 Dose: 100 mls/hr Documented by: Insulin Glargine (Lantus (Bk)) 15 units SC QHS [facility] Last Admin: 02/17/20 21:57 Dose: 15 units Documented by: Insulin Human Lispro (Humalog Kwikpen ([facility])) 0 unit SC ACHS [facility]; Protocol Last Admin: 02/18/20 06:38 Dose: Not Given Documented by: Lisinopril (Zestril) 2.5 mg PO DAILY [facility] Last Admin: 02/18/20 08:11 Dose: 2.5 mg Documented by: Melatonin (Melatonin) 3 mg PO QHS PRN PRN PRN Reason: INSOMNIA Ondansetron HCl (Zofran) 4 mg IV Q8H PRN PRN PRN Reason: NAUSEA/VOMITING Last Admin: 02/16/20 09:24 Dose: 4 mg Documented by: Oxycodone HCl (Oxyir) 5 mg PO Q4H PRN PRN PRN Reason: Pain Score 4-10/10 Last Admin: 02/18/20 08:16 Dose: 5 mg Documented by: Pantoprazole Sodium (Protonix) 40 mg PO DAILY [facility] Last Admin: 02/18/20 08:11 Dose: 40 mg Documented by: Polyethylene Glycol (Miralax) 17 gm PO BID [facility] Last Admin: 02/18/20 08:11 Dose: Not Given Documented by: Propranolol HCl (Inderal) 10 mg PO BID [facility] Last Admin: 02/18/20 08:10 Dose: 10 mg Documented by: Sodium Chloride () 10 - 40 ml IV UD PRN PRN Reason: SALINE FLUSH Last Admin: 02/16/20 14:09 Dose: 10 ml Documented by: Tolterodine Tartrate (Detrol La) 4 mg PO DAILY [facility] Last Admin: 02/18/20 08:10 Dose: 4 mg Documented by: Trazodone HCl (Desyrel) 50 mg PO QHS [facility] Last Admin: 02/17/20 21:53 Dose: 50 mg Documented by: Medical Necessity - Tobacco Use Smoking Status: Never smoker Tobacco Use: Non-smoker, Secondhand Route of nutrition/ use of supplements: [] Nutritional Intake: [] IV Site: [] Morales Catheter: [] - Assessment/Plan Antibiotics: [] Assessment/Plan: [] Active and Suspected Problems (Last Reviewed 01/14/20 @ 00:[address] Gen Butt MD) Severe sepsis (Acute) Diabetic foot infection (Acute) severe sepsis with DM and spina bifida - Ucx with klebs, pseudomonas, CoNS. On vanc/zosyn. Covid (+) 01/21, has recovered. Taken to OR 02/14/[address] George for partial toe amputation. Surg clearance cx with GPRx2, CoNS. Wound cx also with GBS. Vanc trough 44, doses being held. Concern for GILBERT, will get bmp now, vanc level in afternoon. I do not think she can be discharged today. Will stop zosyn, cont to hold vanc. May be a candidate for linezolid po at discharge to avoid further nephrotoxicity. Will stop trazodone. Will follow, d/w outsole caser
[2020-02-18 10:19] LABS: Anion Gap 6 (5-15); BUN 16 mg/dL (7-18); Calcium,Total 9.4 mg/dL (8.5-10.1); Chloride 102 mmol/L (98-107); Creatinine, Serum 1.33 mg/dL (0.55-1.02); EST Glomerular Filtration Rate 47 mL/min (>60); Est Glom Filt Rate - Afr Amer 57 mL/min (>60); Estimated Creatinine Clearance 45.36 ml/min; Glucose 143 mg/dL (74-106); Potassium 3.4 mmol/L (3.5-5.1); Sodium Level 139 mmol/L (136-145)
--- NOTE | 2020-02-18 10:25 | CASEMGMT ---
Social Work Note SW in to speak with pt to confirm discharge plans. Pt states that ID stated pt may be able to discharge on PO antibiotics and not need a PICC line. Pt states that if she is able to discharge on PO antibiotics she prefers to discharge home. Pt also states that her has changed her dressing changes before at home so he is able to do them again at discharge. Pt denied HHC at this time. SALUD and VERNON CM to continue to follow. Plan: If pt is able to discharge on PO antibiotics pt prefers to discharge home. Kati Martinez AUDIOLOGY DIRECTOR, [employer]
[2020-02-18 11:05] VITALS: BP 125/62; PULSE 65; RESP 18; TEMP 36.5; O2SAT 95
--- NOTE | 2020-02-18 11:08 | PCM.PN.HOSP ---
Patient Problems: Active and Suspected Problems (Last Reviewed 01/14/20 @ 00:[address] Gen Butt MD) Severe sepsis (Acute) Diabetic foot infection (Acute) Osteomyelitis of great toe of left foot (Acute) Reason for Visit: Left big toe cellulitis and osteomyelitis Subjective: Patient is a 39-year-old lady with history of spina bifida with neuropathy, diabetes mellitus type 2, who was admitted with severe sepsis secondary to cellulitis of and left foot and osteomyelitis involving the left great toe Objective: GENERAL: cooperative HEENT: Atraumatic; EYES; Anicteric, Normal Conjunctiva NECK; supple, normal thyroid, RESPIRATORY: Diminished to auscultation CARDIOVASCULAR: Regular S1 S2, GI: soft, normoactive bowel sounds, : No Renal angle tenderness; EXTREMITIES: L Foot in surgical dressing MUSCULOSKELETAL: no muscle waisting NEURO: Awake; no lateralizing signs. SKIN: No Rash PSYCH; Flat affect Vitals/I&O's: Vital Signs Temp Pulse Resp BP Pulse Ox 97.6 F L 57 L 18 117/78 97 02/18/20 05:05 02/18/20 05:05 02/18/20 05:05 02/18/20 05:05 02/18/20 05:05 Oxygen Flow Rate (L/min) 2 Oxygen Delivery Method Room Air Weight: 105.687 kg Body Mass Index (BMI) 42.4 Finger Stick Blood Glucose 143 Intake and Output for Last 24 Hours 02/16/20 02/17/20 02/18/20 23:59 23:59 23:59 Intake Total 4940.00 / 5540.00 4575.84 / 4575.84 1343.33 / 1343.33 Output Total 5525 / 7525 27637 / 58218 400 / 400 Balance -585.00 / -1985.00 -7374.16 / -7374.16 943.33 / 943.33 Microbiology Past 72 Hours 02/12/20 16:43 Blood Culture (Wb) - Anticubital Right Blood Culture - Final No growth in 5 days. 02/12/20 15:47 Blood Culture (Wb) - Left Forearm Blood Culture - Final No growth in 5 days. 02/14/20 15:24 Wound - Aerobic & Anaerobic Swabs Gram Stain - Final 02/14/20 15:24 Wound - Aerobic & Anaerobic Swabs Wound Culture - Final Gram positive sue Gram positive sue#2 Coag Negative Staph 02/14/20 15:24 Wound - Aerobic & Anaerobic Swabs Anaerobic Culture - Preliminary Checking for anaerobes, further studies to follow. 02/13/20 10:35 Wound - Toe Gram Stain - Final 02/13/20 10:35 Wound - Toe Wound Culture - Final Streptococcus agalactiae (B) Coag Negative Staph Gram positive sue 02/12/20 16:05 Urine Catheter - Morales Urine Culture - Final Klebsiella pneumoniae sp pneum Pseudomonas fluorescens Staphylococcus haemolyticus Laboratory Results 02/16/20 11:38: POC Glucose 97 02/17/20 11:56: POC Glucose 192 H 02/17/20 15:15: Vancomycin Trough 43.8 H 02/17/20 16:28: POC Glucose 117 H 02/17/20 21:55: POC Glucose 183 H 02/18/20 06:36: POC Glucose 104 02/18/20 09:26: Sodium 139, Potassium 3.4 L, Chloride 102, Carbon Dioxide 31.0, Anion Gap 6, BUN 16, Creatinine 1.33 H, Estim Creat Clear Calc 45.36, Est GFR (MDRD) Af Amer 57 L, Est GFR (MDRD) Non-Af 47 L, BUN/Creatinine Ratio 12.0, Glucose 143 H, Calcium 9.4 Current Medications Acetaminophen (Tylenol) 650 mg PO Q6H PRN PRN PRN Reason: Pain Score 1-10/Temp > 100.7 F Last Admin: 02/18/20 01:01 Dose: 650 mg Documented by: Al Hydroxide/Mg Hydroxide (Mylanta Ii) 30 ml PO Q6H PRN PRN PRN Reason: Gastric Burning Atorvastatin Calcium (Lipitor) 20 mg PO QHS [facility] Last Admin: 02/17/20 21:59 Dose: 20 mg Documented by: Enoxaparin Sodium (Lovenox) 40 mg SC DAILY [facility] Last Admin: 02/17/20 09:07 Dose: Not Given Documented by: Furosemide (Lasix) 20 mg PO DAILY@1700 [facility] Last Admin: 02/17/20 16:25 Dose: 20 mg Documented by: Furosemide (Lasix) 40 mg PO BREAKFAST [facility] Last Admin: 02/18/20 08:10 Dose: 40 mg Documented by: Vancomycin IV Pharmacy to Dose (1 ea/ Sodium Chloride) 500 mls @ 250 mls/hr IV PRN PRN; Protocol PRN Reason: Rx to Dose Sodium Chloride () 250 mls @ 15 mls/hr IV .[id number] PRN PRN Reason: Saline Flush Last Infusion: 02/15/20 22:32 Dose: Infused Documented by: Sodium Chloride () 250 mls @ 15 mls/hr IV .[id number] PRN PRN Reason: Additional IVPB Infusion Lactated Ringer's () 1,000 mls @ 100 mls/hr IV .Q10H [facility] Last Admin: 02/18/20 06:32 Dose: 100 mls/hr Documented by: Insulin Glargine (Lantus ([facility])) 15 units SC QHS [facility] Last Admin: 02/17/20 21:57 Dose: 15 units Documented by: Insulin Human Lispro (Humalog Kwikpen ([facility])) 0 unit SC ACHS [facility]; Protocol Last Admin: 02/18/20 06:38 Dose: Not Given Documented by: Lisinopril (Zestril) 2.5 mg PO DAILY [facility] Last Admin: 02/18/20 08:11 Dose: 2.5 mg Documented by: Melatonin (Melatonin) 3 mg PO QHS PRN PRN PRN Reason: INSOMNIA Ondansetron HCl (Zofran) 4 mg IV Q8H PRN PRN PRN Reason: NAUSEA/VOMITING Last Admin: 02/16/20 09:24 Dose: 4 mg Documented by: Oxycodone HCl (Oxyir) 5 mg PO Q4H PRN PRN PRN Reason: Pain Score 4-10/10 Last Admin: 02/18/20 08:16 Dose: 5 mg Documented by: Pantoprazole Sodium (Protonix) 40 mg PO DAILY [facility] Last Admin: 02/18/20 08:11 Dose: 40 mg Documented by: Polyethylene Glycol (Miralax) 17 gm PO BID [facility] Last Admin: 02/18/20 08:11 Dose: Not Given Documented by: Propranolol HCl (Inderal) 10 mg PO BID [facility] Last Admin: 02/18/20 08:10 Dose: 10 mg Documented by: Sodium Chloride () 10 - 40 ml IV UD PRN PRN Reason: SALINE FLUSH Last Admin: 02/16/20 14:09 Dose: 10 ml Documented by: Tolterodine Tartrate (Detrol La) 4 mg PO DAILY [facility] Last Admin: 02/18/20 08:10 Dose: 4 mg Documented by: Medical Necessity - Tobacco Use Smoking Status: Never smoker Tobacco Use: Non-smoker, Secondhand Assessment/Plan All Active Problems (Last Reviewed 01/14/20 @ 00:[address] Gen Butt MD) Cellulitis (Acute) Severe sepsis (Acute) Diabetic foot infection (Acute) Osteomyelitis of great toe of left foot (Acute) UTI (urinary tract infection) (Resolved) Patient is a 39-year-old lady with history of spina bifida with neuropathy, diabetes mellitus type 2, who was admitted with severe sepsis secondary to cellulitis of and left foot and osteomyelitis involving the left great toe 1. Severe sepsis ?Secondary to left lower extremity cellulitis as well as osteomyelitis involving the left big toe. Patient underwent left big toe amputation on 02/14/2020. Patient currently on broad-spectrum antibiotic therapy. Culture results are as below; infectious disease on case. Patient was on Zosyn and vancomycin and Zosyn held by ID in view of worsening kidney function remains on Vanco Microbiology 02/12/20 16:43 Blood Culture (Wb) - Anticubital Right Blood Culture - Final No growth in 5 days. 02/12/20 15:47 Blood Culture (Wb) - Left Forearm Blood Culture - Final No growth in 5 days. 02/14/20 15:24 Wound - Aerobic & Anaerobic Swabs Gram Stain - Final 02/14/20 15:24 Wound - Aerobic & Anaerobic Swabs Wound Culture - Final Gram positive sue Gram positive sue#2 Coag Negative Staph 02/14/20 15:24 Wound - Aerobic & Anaerobic Swabs Anaerobic Culture - Preliminary Checking for anaerobes, further studies to follow. 02/13/20 10:35 Wound - Toe Gram Stain - Final 02/13/20 10:35 Wound - Toe Wound Culture - Final Streptococcus agalactiae (B) Coag Negative Staph Gram positive sue 2. Acute cystitis; 02/12/20 16:05 Microbiology Urine Catheter - Morales Urine Culture - Final Klebsiella pneumoniae sp pneum Pseudomonas fluorescens Staphylococcus haemolyticus Patient on appropriate antibiotic therapy 3. Diabetes mellitus type 2 ?With complications including neuropathy. Did continue patient home insulin regimen in addition to sliding scale correction factor 4. Spina bifida ?With complications including lower extremity neuropathy 5. Morbid obesity with BMI of 42.6 ?Weight loss advised 6. Dyslipidemia -Patient is on statin therapy, continued at home dose 7. 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 Zosyn was discontinued by infectious disease vancomycin currently on hold with subsequent monitoring of electrolyte 8. Recent COVID-19 infection ?Diagnosed on 01/22/2020. Patient recovered fully 9. DVT prophylaxis ?Lovenox Active Medications Acetaminophen (Tylenol) 650 mg PO Q6H PRN PRN PRN Reason: Pain Score 1-10/Temp > 100.7 F Last Admin: 02/18/20 01:01 Dose: 650 mg Documented by: Al Hydroxide/Mg Hydroxide (Mylanta Ii) 30 ml PO Q6H PRN PRN PRN Reason: Gastric Burning Atorvastatin Calcium (Lipitor) 20 mg PO QHS [facility] Last Admin: 02/17/20 21:59 Dose: 20 mg Documented by: Enoxaparin Sodium (Lovenox) 40 mg SC DAILY [facility] Last Admin: 02/18/20 11:11 Dose: Not Given Documented by: Furosemide (Lasix) 20 mg PO DAILY@1700 [facility] Last Admin: 02/17/20 16:25 Dose: 20 mg Documented by: Furosemide (Lasix) 40 mg PO BREAKFAST [facility] Last Admin: 02/18/20 08:10 Dose: 40 mg Documented by: Vancomycin IV Pharmacy to Dose (1 ea/ Sodium Chloride) 500 mls @ 250 mls/hr IV PRN PRN; Protocol PRN Reason: Rx to Dose Sodium Chloride () 250 mls @ 15 mls/hr IV .[id number] PRN PRN Reason: Saline Flush Last Infusion: 02/15/20 22:32 Dose: Infused Documented by: Sodium Chloride () 250 mls @ 15 mls/hr IV .[id number] PRN PRN Reason: Additional IVPB Infusion Lactated Ringer's () 1,000 mls @ 100 mls/hr IV .Q10H [facility] Last Admin: 02/18/20 06:32 Dose: 100 mls/hr Documented by: Insulin Glargine (Lantus ([facility])) 15 units SC QHS [facility] Last Admin: 02/17/20 21:57 Dose: 15 units Documented by: Insulin Human Lispro (Humalog Kwikpen ([facility])) 0 unit SC ACHS [facility]; Protocol Last Admin: 02/18/20 11:17 Dose: 1 units Documented by: Lisinopril (Zestril) 2.5 mg PO DAILY [facility] Last Admin: 02/18/20 08:11 Dose: 2.5 mg Documented by: Melatonin (Melatonin) 3 mg PO QHS PRN PRN PRN Reason: INSOMNIA Ondansetron HCl (Zofran) 4 mg IV Q8H PRN PRN PRN Reason: NAUSEA/VOMITING Last Admin: 02/16/20 09:24 Dose: 4 mg Documented by: Oxycodone HCl (Oxyir) 5 mg PO Q4H PRN PRN PRN Reason: Pain Score 4-10/10 Last Admin: 02/18/20 08:16 Dose: 5 mg Documented by: Pantoprazole Sodium (Protonix) 40 mg PO DAILY [facility] Last Admin: 02/18/20 08:11 Dose: 40 mg Documented by: Polyethylene Glycol (Miralax) 17 gm PO BID [facility] Last Admin: 02/18/20 08:11 Dose: Not Given Documented by: Propranolol HCl (Inderal) 10 mg PO BID [facility] Last Admin: 02/18/20 08:10 Dose: 10 mg Documented by: Sodium Chloride () 10 - 40 ml IV UD PRN PRN Reason: SALINE FLUSH Last Admin: 02/16/20 14:09 Dose: 10 ml Documented by: Tolterodine Tartrate (Detrol La) 4 mg PO DAILY [facility] Last Admin: 02/18/20 08:10 Dose: 4 mg Documented by: Inpatient E&M: [id number] [facility] Hosp L2
[2020-02-18] MEDS: Insulin Lispro 100 UNIT/ML INSULN.PEN SC ×3 (11:17→21:40)
[2020-02-18 11:26] LABS: Bedside Glucose 164 mg/dL (70-110)
[2020-02-18] MEDS: Furosemide 20 MG Tablet PO (16:08)
[2020-02-18 16:11] LABS: Vancomycin, Random Level 19.8 ug/mL (0.0-15.0)
[2020-02-18 16:15] VITALS: BP 113/68; PULSE 95; RESP 18; TEMP 36.9; O2SAT 95
[2020-02-18 16:36] LABS: Bedside Glucose 169 mg/dL (70-110)
--- NOTE | 2020-02-18 17:17 | PN_ITS ---
Patient Problems: Active and Suspected Problems (Last Reviewed 01/14/20 @ 00:[address] Gen Butt MD) Severe sepsis (Acute) Diabetic foot infection (Acute) Osteomyelitis of great toe of left foot (Acute) Subjective: Patient s/p partial 1st toe amputation on the left foot, also followed for heal ulcer. Had dressing changed this morning. - Physical Exam Vitals/I&O's: Vital Signs Temp Pulse Resp BP Pulse Ox 98.4 F 95 18 113/68 95 02/18/20 16:15 02/18/20 16:15 02/18/20 16:15 02/18/20 16:15 02/18/20 16:15 Oxygen Flow Rate (L/min) 2 Oxygen Delivery Method Room Air Weight: 105.687 kg Body Mass Index (BMI) 42.4 Finger Stick Blood Glucose 143 Intake and Output for Last 24 Hours 02/16/20 02/17/20 02/18/20 23:59 23:59 23:59 Intake Total 4940.00 / 5540.00 4575.84 / 4575.84 2353.33 / 2353.33 Output Total 5525 / 7525 21157 / 96037 3000 / 3000 Balance -585.00 / -1985.00 -7374.16 / -7374.16 -646.67 / -646.67 Microbiology Past 72 Hours 02/12/20 16:43 Blood Culture (Wb) - Anticubital Right Blood Culture - Final No growth in 5 days. 02/12/20 15:47 Blood Culture (Wb) - Left Forearm Blood Culture - Final No growth in 5 days. 02/14/20 15:24 Wound - Aerobic & Anaerobic Swabs Gram Stain - Final 02/14/20 15:24 Wound - Aerobic & Anaerobic Swabs Wound Culture - Final Gram positive sue Gram positive sue#2 Coag Negative Staph 02/14/20 15:24 Wound - Aerobic & Anaerobic Swabs Anaerobic Culture - Preliminary Checking for anaerobes, further studies to follow. 02/13/20 10:35 Wound - Toe Gram Stain - Final 02/13/20 10:35 Wound - Toe Wound Culture - Final Streptococcus agalactiae (B) Coag Negative Staph Gram positive sue 02/12/20 16:05 Urine Catheter - Morales Urine Culture - Final Klebsiella pneumoniae sp pneum Pseudomonas fluorescens Staphylococcus haemolyticus Laboratory Results 02/16/20 11:38: POC Glucose 97 02/17/20 21:55: POC Glucose 183 H 02/18/20 06:36: POC Glucose 104 02/18/20 09:26: Sodium 139, Potassium 3.4 L, Chloride 102, Carbon Dioxide 31.0, Anion Gap 6, BUN 16, Creatinine 1.33 H, Estim Creat Clear Calc 45.36, Est GFR (MDRD) Af Amer 57 L, Est GFR (MDRD) Non-Af 47 L, BUN/Creatinine Ratio 12.0, Glucose 143 H, Calcium 9.4 02/18/20 11:16: POC Glucose 164 H 02/18/20 15:24: Random Vancomycin 19.8 H 02/18/20 16:26: POC Glucose 169 H Current Medications Acetaminophen (Tylenol) 650 mg PO Q6H PRN PRN PRN Reason: Pain Score 1-10/Temp > 100.7 F Last Admin: 02/18/20 01:01 Dose: 650 mg Documented by: Al Hydroxide/Mg Hydroxide (Mylanta Ii) 30 ml PO Q6H PRN PRN PRN Reason: Gastric Burning Atorvastatin Calcium (Lipitor) 20 mg PO QHS [facility] Last Admin: 02/17/20 21:59 Dose: 20 mg Documented by: Enoxaparin Sodium (Lovenox) 40 mg SC DAILY [facility] Last Admin: 02/18/20 11:11 Dose: Not Given Documented by: Furosemide (Lasix) 20 mg PO DAILY@1700 [facility] Last Admin: 02/18/20 16:08 Dose: 20 mg Documented by: Furosemide (Lasix) 40 mg PO BREAKFAST [facility] Last Admin: 02/18/20 08:10 Dose: 40 mg Documented by: Vancomycin IV Pharmacy to Dose (1 ea/ Sodium Chloride) 500 mls @ 250 mls/hr IV PRN PRN; Protocol PRN Reason: Rx to Dose Sodium Chloride () 250 mls @ 15 mls/hr IV .[id number] PRN PRN Reason: Saline Flush Last Infusion: 02/15/20 22:32 Dose: Infused Documented by: Sodium Chloride () 250 mls @ 15 mls/hr IV .[id number] PRN PRN Reason: Additional IVPB Infusion Lactated Ringer's () 1,000 mls @ 100 mls/hr IV .Q10H [facility] Last Admin: 02/18/20 16:08 Dose: 100 mls/hr Documented by: Insulin Glargine (Lantus ([facility])) 15 units SC QHS [facility] Last Admin: 02/17/20 21:57 Dose: 15 units Documented by: Insulin Human Lispro (Humalog Kwikpen ([facility])) 0 unit SC ACHS [facility]; Protocol Last Admin: 02/18/20 16:27 Dose: 1 units Documented by: Lisinopril (Zestril) 2.5 mg PO DAILY [facility] Last Admin: 02/18/20 08:11 Dose: 2.5 mg Documented by: Melatonin (Melatonin) 3 mg PO QHS PRN PRN PRN Reason: INSOMNIA Ondansetron HCl (Zofran) 4 mg IV Q8H PRN PRN PRN Reason: NAUSEA/VOMITING Last Admin: 02/16/20 09:24 Dose: 4 mg Documented by: Oxycodone HCl (Oxyir) 5 mg PO Q4H PRN PRN PRN Reason: Pain Score 4-10/10 Last Admin: 02/18/20 08:16 Dose: 5 mg Documented by: Pantoprazole Sodium (Protonix) 40 mg PO DAILY [facility] Last Admin: 02/18/20 08:11 Dose: 40 mg Documented by: Polyethylene Glycol (Miralax) 17 gm PO BID [facility] Last Admin: 02/18/20 08:11 Dose: Not Given Documented by: Propranolol HCl (Inderal) 10 mg PO BID [facility] Last Admin: 02/18/20 08:10 Dose: 10 mg Documented by: Sodium Chloride () 10 - 40 ml IV UD PRN PRN Reason: SALINE FLUSH Last Admin: 02/16/20 14:09 Dose: 10 ml Documented by: Tolterodine Tartrate (Detrol La) 4 mg PO DAILY [facility] Last Admin: 02/18/20 08:10 Dose: 4 mg Documented by: Medical Necessity - Tobacco Use Smoking Status: Never smoker Tobacco Use: Non-smoker, Secondhand Assessment/Plan All Active Problems (Last Reviewed 01/14/20 @ 00:[address] Gen Butt MD) Cellulitis (Acute) Severe sepsis (Acute) Diabetic foot infection (Acute) Osteomyelitis of great toe of left foot (Acute) UTI (urinary tract infection) (Resolved) Osteomyelitis distal phalanx left hallux s/p partial amputation on 02/14/2020 Cellulitis left lower extremity - much improved Ulcer down to dermal layer, left heel Diabetes type 2 Spina bifida Neuropathy lower extremities Morbid obesity, multiple comorbidities Significant improvement noted to the left foot. Surgical site healing, ulcer medial left heel doing well. Reviewed cultures, and patient is on IV antibiotics per Dr. Alex, possible plan for oral antibiotics at D/C. No weightbearing left foot, keep foot elevated. Reviewed importance of proper blood sugar control to help optimize healing and foot/ankle health. Ok to d/c from podiatry standpoint when ok with ID and medical team. Patient to follow up with Dr. George in 1 week, sooner if needed.
--- NOTE | 2020-02-18 17:19 | DCINST_ITS ---
Weight Bearing Status: No weight bearing - to weightbearing to the toes or ball of the left foot; ok to put weight down on heel for transfers only. Call your doctor if your incision/area has: Continuous Slow Oozing, Sudden Increased Bleeding, Foul Smelling Discharge Call your doctor if you observe: Fever of 101 or Higher, Shortness of breath, Chest pain, Calf discomfort, Uncontrolled pain Cleanse incision/area with: - - Keep dressing clean, dry and intact to the left foot. Allergies/Adverse Reactions: Allergies mushroom Allergy (Verified 02/12/20 14:40) Anaphylaxis peanut Allergy (Verified 02/12/20 14:40) Anaphylaxis Gadolinium-MRI Contrast Medium Adverse Reaction (Verified 02/12/20 14:40) Vomiting Latex, Natural Rubber Adverse Reaction (Verified 02/12/20 14:40) Rash Medications to take at Discharge Furosemide [Lasix] 20 mg PO DAILY@1700 08/28/18 Furosemide [Lasix] 40 mg PO BREAKFAST 04/05/19 insulin glargine 100 unit/mL (3 mL) subcutaneous pen 15 unit SC QHS 11/01/19 lisinopril 2.5 mg tablet 2.5 mg PO DAILY 11/01/19 atorvastatin 20 mg tablet 20 mg PO QHS 11/12/19 oxybutynin chloride 15 mg tablet,extended release 24 hr 15 mg PO DAILY 11/12/19 Propranolol HCl 10 mg PO BID 01/13/20 Albuterol Inhaler [Ventolin Hfa] 1 - 2 puff INHALATION Q4H PRN PRN #1 inhaler 01/22/20 Acetaminophen [Tylenol] 1,000 mg PO TID PRN PRN 02/12/20 Linezolid [Zyvox] 600 mg PO BID #23 tab 02/19/20 Metronidazole [Flagyl] 500 mg PO TID #42 tab 02/19/20 Polyethylene Glycol 3350 [Miralax] 17 gm PO BID #60 packet 02/19/20 The following prescriptions were given: Metronidazole [Flagyl] 500 mg PO TID #42 tab Transmission Status: Received by [facility] Polyethylene Glycol 3350 [Miralax] 17 gm PO BID #60 packet Transmission Status: Received by [facility] Linezolid [Zyvox] 600 mg PO BID #23 tab Transmission Status: Received by [facility] Primary Care Physician: Will Shukla MD [Primary Care Provider] - Test Results: Test results from this visit will be discussed in further detail at your follow- up appointment, if applicable. Please Follow Up With: Karma George DPM When: next week, sooner if needed.
--- NOTE | 2020-02-18 17:58 | PCM.RX.CS ---
Consult Pharmacy has been consulted to manage selected antiobiotic: Vancomycin Type of Consult: Follow-up Labs: Sodium 139 mmol/L (136-145) 02/18/20 09:26 Potassium 3.4 mmol/L (3.5-5.1) L 02/18/20 09:26 Chloride 102 mmol/L (98-107) 02/18/20 09:26 Carbon Dioxide 31.0 mmol/L (21.0-32.0) 02/18/20 09:26 Anion Gap 6 (5-15) 02/18/20 09:26 BUN 16 mg/dL (7-18) 02/18/20 09:26 Creatinine 1.33 mg/dL (0.55-1.02) H 02/18/20 09:26 Est GFR (MDRD) Af Amer 57 mL/min (>60) L 02/18/20 09:26 Est GFR (MDRD) Non-Af 47 mL/min (>60) L 02/18/20 09:26 BUN/Creatinine Ratio 12.0 RATIO (10-20) 02/18/20 09:26 Glucose 143 mg/dL (74-106) H 02/18/20 09:26 Vancomycin Trough 43.8 ug/mL (5.0-15.0) H 02/17/20 15:15 Random Vancomycin 19.8 ug/mL (0.0-15.0) H 02/18/20 15:24 Microbiology: Microbiology 02/12/20 16:43 Blood Culture (Wb) - Anticubital Right Blood Culture - Final No growth in 5 days. 02/12/20 15:47 Blood Culture (Wb) - Left Forearm Blood Culture - Final No growth in 5 days. 02/14/20 15:24 Wound - Aerobic & Anaerobic Swabs Gram Stain - Final 02/14/20 15:24 Wound - Aerobic & Anaerobic Swabs Wound Culture - Final Gram positive sue Gram positive sue#2 Coag Negative Staph 02/14/20 15:24 Wound - Aerobic & Anaerobic Swabs Anaerobic Culture - Preliminary Checking for anaerobes, further studies to follow. 02/13/20 10:35 Wound - Toe Gram Stain - Final 02/13/20 10:35 Wound - Toe Wound Culture - Final Streptococcus agalactiae (B) Coag Negative Staph Gram positive sue 02/12/20 16:05 Urine Catheter - Morales Urine Culture - Final Klebsiella pneumoniae sp pneum Pseudomonas fluorescens Staphylococcus haemolyticus Weight used for dosin.7 kg Estimated Creatinine Clearance: 65.5ML/MIN Goal Trough: 15-20 mcg/mL Pharmacy Plan for Drug Dosing: The vancomycin random level drawn at 15:24 today returned as 19.8. Vancomycin had been held since yesterday due to the trough yesterday of 43.8. There has been concern over the patient's renal function so even though the trough was back below 20 and dosing could possibly be restarted, it was decided to call Dr Alex for input. It was then concluded not to restart dosing yet but to get another random level with tomorrow morning's labs and reevaluate from there. Pharmacy Service will continue to monitor and adjust dosing as required. Follow-Up Labs: Trough Vancomycin - random level Labs to be done on [date and time ordered]: 02/19/20 0600 with AM labs
[2020-02-18 21:34] VITALS: BP 131/91; PULSE 71; RESP 16; TEMP 36.7; O2SAT 95
[2020-02-18] MEDS: Atorvastatin Calcium 20 MG Tablet PO (21:40)
[2020-02-18 22:00] LABS: Bedside Glucose 186 mg/dL (70-110)
[2020-02-19] MEDS: Lactated Ringers 1,000 ML 100 ML IV ×2 (01:34→11:23)
[2020-02-19 03:35] VITALS: BP 110/71; PULSE 63; RESP 16; TEMP 36.7; O2SAT 96
[2020-02-19 06:17] LABS: Hemoglobin 11.7 g/dL (12.0-15.0); Mean Corp Hgb Conc 33.4 g/dL (32-36); Mean Corpuscular Hgb 30.3 pg (27.0-32.0); Mean Corpuscular Volume 90.7 fL (81-99); Mean Platelet Vol. 10.4 fl (6.2-12.0); Platelet Count 237 K/mm3 (150-450); RBC Distribution Width CV 13.1 % (11.6-14.6); RBC Distribution Width SD 42.7 fl (35.1-43.9); Red Blood Count 3.86 M/mm3 (4.2-5.4); White Blood Count 11.1 K/mm3 (4.4-11.0)
[2020-02-19 06:41] LABS: Bedside Glucose 149 mg/dL (70-110)
[2020-02-19 07:03] LABS: Vancomycin, Random Level 11.4 ug/mL (0.0-15.0)
[2020-02-19 07:21] LABS: Anion Gap 8 (5-15); BUN 17 mg/dL (7-18); BUN/Creat Ratio 13.6 RATIO (10-20); Calcium,Total 9.2 mg/dL (8.5-10.1); Chloride 103 mmol/L (98-107); Creatinine, Serum 1.25 mg/dL (0.55-1.02); EST Glomerular Filtration Rate 51 mL/min (>60); Est Glom Filt Rate - Afr Amer 62 mL/min (>60); Estimated Creatinine Clearance 48.26 ml/min; Glucose 138 mg/dL (74-106); Magnesium 1.8 mg/dL (1.6-2.6); Potassium 3.4 mmol/L (3.5-5.1); Sodium Level 139 mmol/L (136-145)
[2020-02-19] MEDS: Acetaminophen 325 MG Tablet 650 MG PO (07:25)
[2020-02-19] MEDS: oxyCODONE 5 MG Tablet PO (07:25)
--- NOTE | 2020-02-19 08:16 | NURSING ---
Dressing is to remain clean and dry to the left foot according to discharge orders. script for supplies on chart as well when needed.
[2020-02-19 08:40] VITALS: BP 106/74; PULSE 69; RESP 16; TEMP 36.8; O2SAT 96
[2020-02-19] MEDS: Furosemide 40 MG Tablet PO (08:46)
[2020-02-19] MEDS: Tolterodine Tartrate 4 MG CAP.SA PO (09:56)
[2020-02-19] MEDS: Propranolol 10 MG Tablet PO (09:56)
[2020-02-19] MEDS: Pantoprazole Sodium 40 MG Tablet PO (09:57)
[2020-02-19] MEDS: Lisinopril 2.5 MG Tablet PO (09:57)
[2020-02-19] MEDS: Linezolid 600 MG Tablet PO (10:00)
[2020-02-19 11:55] LABS: Bedside Glucose 134 mg/dL (70-110)
--- NOTE | 2020-02-19 12:23 | PCM.PROGNOTE ---
Patient Problems: Active and Suspected Problems (Last Reviewed 01/14/20 @ 00:[address] Gen Butt MD) Severe sepsis (Acute) Diabetic foot infection (Acute) Osteomyelitis of great toe of left foot (Acute) Subjective: Patient was seen this morning for follow up on left foot. She has no new complaints. No complaints of fever, chills, nausea or vomiting. - Physical Exam Vitals/I&O's: Vital Signs Temp Pulse Resp BP Pulse Ox 98.3 F 69 16 106/74 96 02/19/20 08:40 02/19/20 08:40 02/19/20 08:40 02/19/20 08:40 02/19/20 08:40 Oxygen Flow Rate (L/min) 2 Oxygen Delivery Method Room Air Weight: 103.51 kg Body Mass Index (BMI) 42.4 Finger Stick Blood Glucose 143 Intake and Output for Last 24 Hours 02/17/20 02/18/20 02/19/20 23:59 23:59 23:59 Intake Total 4575.84 / 4575.84 2353.33 / 2653.33 2425.00 / 2425.00 Output Total 04623 / 09607 4800 / 6350 2600 / 2600 Balance -7374.16 / -7374.16 -2446.67 / -3696.67 -175.00 / -175.00 General: Alert, Oriented x3, Cooperative, No apparent distress Extremities: Capillary Refill Less than 3 Seconds, No Calf Tenderness, - - Resolved cellulitis to the left leg, there is resolved erythema dorsal residual left 1st toe otherwise there is some slight ecchymosis to the dorsal left 1st toe, medial left heel ulceration appears healed at this time, the sutures at the amp site 1st toe intact with incision site well coapted, no dehiscene, no drainage, no crepitus, no fluctuance, no necrosis noted. There is some tenderness at the left 1st toe amp site, otherwise no other pain to the foot/ankle, left. No evidence of ischemia to the left foot or ankle. Microbiology Past 72 Hours 02/14/20 15:24 Wound - Aerobic & Anaerobic Swabs Gram Stain - Final 02/14/20 15:24 Wound - Aerobic & Anaerobic Swabs Wound Culture - Final Gram positive sue Gram positive sue#2 Coag Negative Staph 02/14/20 15:24 Wound - Aerobic & Anaerobic Swabs Anaerobic Culture - Final Anaerobic cocci 02/12/20 16:43 Blood Culture (Wb) - Anticubital Right Blood Culture - Final No growth in 5 days. 02/12/20 15:47 Blood Culture (Wb) - Left Forearm Blood Culture - Final No growth in 5 days. 02/13/20 10:35 Wound - Toe Gram Stain - Final 02/13/20 10:35 Wound - Toe Wound Culture - Final Streptococcus agalactiae (B) Coag Negative Staph Gram positive sue Laboratory Results 02/18/20 15:24: Random Vancomycin 19.8 H 02/18/20 16:26: POC Glucose 169 H 02/18/20 21:33: POC Glucose 186 H 02/19/20 06:00: WBC 11.1 H, RBC 3.86 L, Hgb 11.7 L, Hct 35.0 L, MCV 90.7, MCH 30.3, MCHC 33.4, RDW Std Deviation 42.7, RDW Coeff of Claude 13.1, Plt Count 237, MPV 10.4 02/19/20 06:00: Sodium 139, Potassium 3.4 L, Chloride 103, Carbon Dioxide 28.0, Anion Gap 8, BUN 17, Creatinine 1.25 H, Estim Creat Clear Calc 48.26, Est GFR (MDRD) Af Amer 62, Est GFR (MDRD) Non-Af 51 L, BUN/Creatinine Ratio 13.6, Glucose 138 H, Calcium 9.2, Magnesium 1.8 02/19/20 06:00: Random Vancomycin 11.4 02/19/20 06:35: POC Glucose 149 H 02/19/20 11:26: POC Glucose 134 H Current Medications Acetaminophen (Tylenol) 650 mg PO Q6H PRN PRN PRN Reason: Pain Score 1-10/Temp > 100.7 F Last Admin: 02/19/20 07:25 Dose: 650 mg Documented by: Al Hydroxide/Mg Hydroxide (Mylanta Ii) 30 ml PO Q6H PRN PRN PRN Reason: Gastric Burning Atorvastatin Calcium (Lipitor) 20 mg PO QHS [facility] Last Admin: 02/18/20 21:40 Dose: 20 mg Documented by: Enoxaparin Sodium (Lovenox) 40 mg SC DAILY [facility] Last Admin: 02/19/20 09:56 Dose: Not Given Documented by: Furosemide (Lasix) 20 mg PO DAILY@1700 [facility] Last Admin: 02/18/20 16:08 Dose: 20 mg Documented by: Furosemide (Lasix) 40 mg PO BREAKFAST [facility] Last Admin: 02/19/20 08:46 Dose: 40 mg Documented by: Sodium Chloride () 250 mls @ 15 mls/hr IV .[id number] PRN PRN Reason: Saline Flush Last Infusion: 02/15/20 22:32 Dose: Infused Documented by: Sodium Chloride () 250 mls @ 15 mls/hr IV .[id number] PRN PRN Reason: Additional IVPB Infusion Lactated Ringer's () 1,000 mls @ 100 mls/hr IV .Q10H [facility] Last Admin: 02/19/20 11:23 Dose: 100 mls/hr Documented by: Insulin Glargine (Lantus (Bk)) 15 units SC QHS [facility] Last Admin: 02/18/20 21:40 Dose: 15 units Documented by: Insulin Human Lispro (Humalog Kwikpen ([facility])) 0 unit SC [facility]; Protocol Last Admin: 02/19/20 11:26 Dose: Not Given Documented by: Linezolid (Zyvox) 600 mg PO BID [facility] Last Admin: 02/19/20 10:00 Dose: 600 mg Documented by: Lisinopril (Zestril) 2.5 mg PO DAILY [facility] Last Admin: 02/19/20 09:57 Dose: 2.5 mg Documented by: Melatonin (Melatonin) 3 mg PO QHS PRN PRN PRN Reason: INSOMNIA Ondansetron HCl (Zofran) 4 mg IV Q8H PRN PRN PRN Reason: NAUSEA/VOMITING Last Admin: 02/16/20 09:24 Dose: 4 mg Documented by: Oxycodone HCl (Oxyir) 5 mg PO Q4H PRN PRN PRN Reason: Pain Score 4-10/10 Last Admin: 02/19/20 07:25 Dose: 5 mg Documented by: Pantoprazole Sodium (Protonix) 40 mg PO DAILY [facility] Last Admin: 02/19/20 09:57 Dose: 40 mg Documented by: Polyethylene Glycol (Miralax) 17 gm PO BID [facility] Last Admin: 02/19/20 09:57 Dose: Not Given Documented by: Propranolol HCl (Inderal) 10 mg PO BID [facility] Last Admin: 02/19/20 09:56 Dose: 10 mg Documented by: Sodium Chloride () 10 - 40 ml IV UD PRN PRN Reason: SALINE FLUSH Last Admin: 02/16/20 14:09 Dose: 10 ml Documented by: Tolterodine Tartrate (Detrol La) 4 mg PO DAILY [facility] Last Admin: 02/19/20 09:56 Dose: 4 mg Documented by: Medical Necessity - Tobacco Use Smoking Status: Never smoker Tobacco Use: Non-smoker, Secondhand Assessment/Plan All Active Problems (Last Reviewed 01/14/20 @ 00:[address] Gen Butt MD) Cellulitis (Acute) Severe sepsis (Acute) Diabetic foot infection (Acute) Osteomyelitis of great toe of left foot (Acute) UTI (urinary tract infection) (Resolved) Osteomyelitis distal phalanx left hallux s/p partial amputation on 02/14/2020 Cellulitis left lower extremity - much improved Ulcer down to dermal layer, left heel Diabetes type 2 Spina bifida Neuropathy lower extremities Morbid obesity, multiple comorbidities Significant improvement noted to the left foot. Surgical site continues to heal well, ulcer medial left heel doing well and appears healed at this time. Reviewed cultures, and patient is on IV antibiotics per Dr. Alex, possible plan for oral antibiotics at D/C. Changed dressing - cleansed sites w/ normal saline soln, applied dry gauze, kerlix and richard. Keep clean, dry and intact. No weightbearing left foot, keep foot elevated. Reviewed importance of proper blood sugar control to help optimize healing and foot/ankle health. Ok to d/c from podiatry standpoint when ok with ID and medical team. Patient to follow up with Dr. George in 1 week, sooner if needed.
--- NOTE | 2020-02-19 13:44 | PN.ID_ITS ---
Patient Problems: Active and Suspected Problems (Last Reviewed 01/14/20 @ 00:[address] Gen Butt MD) Severe sepsis (Acute) Diabetic foot infection (Acute) Osteomyelitis of great toe of left foot (Acute) Subjective: Feeling better, no fever, no nausea - Physical Exam Vitals/I&O's: Vital Signs Temp Pulse Resp BP Pulse Ox 98.3 F 69 16 106/74 96 02/19/20 08:40 02/19/20 08:40 02/19/20 08:40 02/19/20 08:40 02/19/20 08:40 Oxygen Flow Rate (L/min) 2 Oxygen Delivery Method Room Air Weight: 103.51 kg Body Mass Index (BMI) 42.4 Finger Stick Blood Glucose 143 Intake and Output for Last 24 Hours 02/17/20 02/18/20 02/19/20 23:59 23:59 23:59 Intake Total 4575.84 / 4575.84 2353.33 / 2653.33 2425.00 / 2425.00 Output Total 42398 / 42711 4800 / 6350 3950 / 3950 Balance -7374.16 / -7374.16 -2446.67 / -3696.67 -1525.00 / -1525.00 General: Alert, Cooperative, No apparent distress Lungs: Clear to auscultation, Normal air movement Cardiovascular: Regular rate, Regular Rhythm Abdomen: Soft, Non Tender, Non-Distended Skin: No rashes Microbiology Past 72 Hours 02/14/20 15:24 Wound - Aerobic & Anaerobic Swabs Gram Stain - Final 02/14/20 15:24 Wound - Aerobic & Anaerobic Swabs Wound Culture - Final Gram positive sue Gram positive sue#2 Coag Negative Staph 02/14/20 15:24 Wound - Aerobic & Anaerobic Swabs Anaerobic Culture - Final Anaerobic cocci 02/12/20 16:43 Blood Culture (Wb) - Anticubital Right Blood Culture - Final No growth in 5 days. 02/12/20 15:47 Blood Culture (Wb) - Left Forearm Blood Culture - Final No growth in 5 days. 02/13/20 10:35 Wound - Toe Gram Stain - Final 02/13/20 10:35 Wound - Toe Wound Culture - Final Streptococcus agalactiae (B) Coag Negative Staph Gram positive sue Laboratory Results 02/18/20 15:24: Random Vancomycin 19.8 H 02/18/20 16:26: POC Glucose 169 H 02/18/20 21:33: POC Glucose 186 H 02/19/20 06:00: WBC 11.1 H, RBC 3.86 L, Hgb 11.7 L, Hct 35.0 L, MCV 90.7, MCH 30.3, MCHC 33.4, RDW Std Deviation 42.7, RDW Coeff of Claude 13.1, Plt Count 237, MPV 10.4 02/19/20 06:00: Sodium 139, Potassium 3.4 L, Chloride 103, Carbon Dioxide 28.0, Anion Gap 8, BUN 17, Creatinine 1.25 H, Estim Creat Clear Calc 48.26, Est GFR (MDRD) Af Amer 62, Est GFR (MDRD) Non-Af 51 L, BUN/Creatinine Ratio 13.6, Glucose 138 H, Calcium 9.2, Magnesium 1.8 02/19/20 06:00: Random Vancomycin 11.4 02/19/20 06:35: POC Glucose 149 H 02/19/20 11:26: POC Glucose 134 H Current Medications Acetaminophen (Tylenol) 650 mg PO Q6H PRN PRN PRN Reason: Pain Score 1-10/Temp > 100.7 F Last Admin: 02/19/20 07:25 Dose: 650 mg Documented by: Al Hydroxide/Mg Hydroxide (Mylanta Ii) 30 ml PO Q6H PRN PRN PRN Reason: Gastric Burning Atorvastatin Calcium (Lipitor) 20 mg PO QHS [facility] Last Admin: 02/18/20 21:40 Dose: 20 mg Documented by: Enoxaparin Sodium (Lovenox) 40 mg SC DAILY [facility] Last Admin: 02/19/20 09:56 Dose: Not Given Documented by: Furosemide (Lasix) 20 mg PO DAILY@1700 [facility] Last Admin: 02/18/20 16:08 Dose: 20 mg Documented by: Furosemide (Lasix) 40 mg PO BREAKFAST [facility] Last Admin: 02/19/20 08:46 Dose: 40 mg Documented by: Sodium Chloride () 250 mls @ 15 mls/hr IV .[id number] PRN PRN Reason: Saline Flush Last Infusion: 02/15/20 22:32 Dose: Infused Documented by: Sodium Chloride () 250 mls @ 15 mls/hr IV .[id number] PRN PRN Reason: Additional IVPB Infusion Lactated Ringer's () 1,000 mls @ 100 mls/hr IV .Q10H [facility] Last Admin: 02/19/20 11:23 Dose: 100 mls/hr Documented by: Insulin Glargine (Lantus ([facility])) 15 units SC QHS [facility] Last Admin: 02/18/20 21:40 Dose: 15 units Documented by: Insulin Human Lispro (Humalog Kwikpen ([facility])) 0 unit SC [facility]; Protocol Last Admin: 02/19/20 11:26 Dose: Not Given Documented by: Linezolid (Zyvox) 600 mg PO BID [facility] Last Admin: 02/19/20 10:00 Dose: 600 mg Documented by: Lisinopril (Zestril) 2.5 mg PO DAILY [facility] Last Admin: 02/19/20 09:57 Dose: 2.5 mg Documented by: Melatonin (Melatonin) 3 mg PO QHS PRN PRN PRN Reason: INSOMNIA Ondansetron HCl (Zofran) 4 mg IV Q8H PRN PRN PRN Reason: NAUSEA/VOMITING Last Admin: 02/16/20 09:24 Dose: 4 mg Documented by: Oxycodone HCl (Oxyir) 5 mg PO Q4H PRN PRN PRN Reason: Pain Score 4-10/10 Last Admin: 02/19/20 07:25 Dose: 5 mg Documented by: Pantoprazole Sodium (Protonix) 40 mg PO DAILY [facility] Last Admin: 02/19/20 09:57 Dose: 40 mg Documented by: Polyethylene Glycol (Miralax) 17 gm PO BID [facility] Last Admin: 02/19/20 09:57 Dose: Not Given Documented by: Propranolol HCl (Inderal) 10 mg PO BID [facility] Last Admin: 02/19/20 09:56 Dose: 10 mg Documented by: Sodium Chloride () 10 - 40 ml IV UD PRN PRN Reason: SALINE FLUSH Last Admin: 02/16/20 14:09 Dose: 10 ml Documented by: Tolterodine Tartrate (Detrol La) 4 mg PO DAILY [facility] Last Admin: 02/19/20 09:56 Dose: 4 mg Documented by: Medical Necessity - Tobacco Use Smoking Status: Never smoker Tobacco Use: Non-smoker, Secondhand Route of nutrition/ use of supplements: [] Nutritional Intake: [] IV Site: [] Morales Catheter: [] - Assessment/Plan Antibiotics: [] Assessment/Plan: [] Active and Suspected Problems (Last Reviewed 01/14/20 @ 00:[address] Gen Butt MD) Severe sepsis (Acute) Diabetic foot infection (Acute) severe sepsis with DM and spina bifida - Ucx with klebs, pseudomonas, CoNS. Has been on vanc/zosyn. Covid (+) 01/21, has recovered. Taken to OR 02/14/[address] George for partial toe amputation. Surg clearance cx with GPRx2, CoNS, anaerobes. Wound cx also with GBS. Cr stable, vanc level coming down. Ok for d/c home on linezolid and flagyl po for 2 week course. ID followup in 2 weeks to decide re: further treatment. Will follow, d/w case resource manager
[2020-02-19 13:49] VITALS: BP 92/69; PULSE 69; RESP 16; TEMP 36.7; O2SAT 94
--- NOTE | 2020-02-19 15:45 | DCINST_ITS ---
- Discharge Diagnoses Current Active Problems: Current Active and Chronic Problems (Last Reviewed 01/14/20 @ 00:[address] Gen Butt MD) Severe sepsis (Acute) Diabetic foot infection (Acute) Osteomyelitis of great toe of left foot (Acute) You will use the following diet at home:: Calorie/Carbohydrate Controlled (specify 1200, 1400, etc) - 1800 warren diet Your food should be the consistency of: Regular Your liquids should be the consistency of: Regular/Thin Discharge Activity: - - weightbearing as described below Weight Bearing Status: No weight bearing - to weightbearing to the toes or ball of the left foot; ok to put weight down on heel for transfers only. Call your doctor if your incision/area has: Continuous Slow Oozing, Sudden Increased Bleeding, Foul Smelling Discharge Call your doctor if you observe: Fever of 101 or Higher, Shortness of breath, Chest pain, Calf discomfort, Uncontrolled pain Cleanse incision/area with: - - Keep dressing clean, dry and intact to the left foot. Allergies/Adverse Reactions: Allergies mushroom Allergy (Verified 02/12/20 14:40) Anaphylaxis peanut Allergy (Verified 02/12/20 14:40) Anaphylaxis Gadolinium-MRI Contrast Medium Adverse Reaction (Verified 02/12/20 14:40) Vomiting Latex, Natural Rubber Adverse Reaction (Verified 02/12/20 14:40) Rash Medications to take at Discharge Furosemide [Lasix] 20 mg PO DAILY@1700 08/28/18 Furosemide [Lasix] 40 mg PO BREAKFAST 04/05/19 insulin glargine 100 unit/mL (3 mL) subcutaneous pen 15 unit SC QHS 11/01/19 lisinopril 2.5 mg tablet 2.5 mg PO DAILY 11/01/19 atorvastatin 20 mg tablet 20 mg PO QHS 11/12/19 oxybutynin chloride 15 mg tablet,extended release 24 hr 15 mg PO DAILY 11/12/19 Propranolol HCl 10 mg PO BID 01/13/20 Albuterol Inhaler [Ventolin Hfa] 1 - 2 puff INHALATION Q4H PRN PRN #1 inhaler 01/22/20 Acetaminophen [Tylenol] 1,000 mg PO TID PRN PRN 02/12/20 Linezolid [Zyvox] 600 mg PO BID #23 tab 02/19/20 Metronidazole [Flagyl] 500 mg PO TID #42 tab 02/19/20 Oxycodone [Oxyir] 5 mg PO Q4H PRN PRN 7 Days #30 tablet 02/19/20 Polyethylene Glycol 3350 [Miralax] 17 gm PO BID #60 packet 02/19/20 The following prescriptions were given: Metronidazole [Flagyl] 500 mg PO TID #42 tab Transmission Status: Received by [facility] Polyethylene Glycol 3350 [Miralax] 17 gm PO BID #60 packet Transmission Status: Pending to [facility] Oxycodone [Oxyir] 5 mg PO Q4H PRN PRN 7 Days #30 tablet PRN Reason: Pain Score 4-10/10 Transmission Status: Sent to [facility] Linezolid [Zyvox] 600 mg PO BID #23 tab Transmission Status: Received by [facility] Primary Care Physician: Will Shukla MD [Primary Care Provider] - Please follow up with your Primary Care Physician in: as scheduled Test Results: Test results from this visit will be discussed in further detail at your follow- up appointment, if applicable. Please Follow Up With: Karma George DPM When: next week, sooner if needed. Please Follow Up With: Alpesh Alex MD When: in two weeks-call for appointment at wound center
[2020-02-19 16:22] VITALS: BP 108/65; PULSE 74; RESP 18; TEMP 36.8; O2SAT 94
--- NOTE | 2020-02-20 15:37 | CASEMGMT ---
VERNON BENITEZ Discharge Follow-up Phone Call: CHLOE: Hamida Strata: 4 Call Date: 02/20/2020 Discharge Date: 02/19/2020 Time of Call: 1538 Duration: 3 min Admitting Diagnosis: Severe Sepsis VERNON BENITEZ completed follow-up phone call after recent hospitalization. Patient states she is doing good. Patient had no questions regarding discharge instructions. Patient states that she was able to fill prescriptions without any issues. Patient states she has follow-up appts with podiatry and infectious disease. Patient had no further questions or concerns at this time.
--- NOTE | 2020-02-21 08:48 | PCM.DC.SUM ---
Discharge Date and Diagnosis Date of Admission: 02/12/20 Date of Discharge: 02/19/20 - Primary Discharge Diagnosis Acute Problems: #1 severe sepsis secondary to left lower extremity cellulitis and osteomyelitis of the left great toe with group B streptococcus, gram-positive sue-type unknown, and coag negative staph #2 type 2 diabetes-uncontrolled #3 cystitis with Klebsiella pneumoniae, Pseudomonas, and staph hemolyticus #4 spina bifida #5 morbid obesity #6 hyperlipidemia #7 acute kidney injury - Secondary Discharge Diagnosis Chronic Problems: Chronic Problems (Last Reviewed 01/14/20 @ 00:[address] 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 Patient had a recent common infection in December 2019. Patient complained that she had a wound on her left foot that reopened and was oozing blood. Patient was given Zofran and Tylenol along with morphine for pain control, she was given IV fluids, labs included a urinalysis which was indicative of urinary tract infection, patient's white count was elevated at 14.6, patient's lactic acid was elevated at 2.6, glucose was elevated to 57. X-rays of the chest were obtained and these were unremarkable, x-rays of the left foot was obtained and showed no evidence of osteomyelitis. On examination by the emergency room physician, there is noted to be an open ulcerated wound on the bottom of her left great toe, there is mild surrounding erythema also in the toe and foot. Patient was admitted to ICU for severe sepsis and placed on antibiotics, she was seen in consultation by pulmonary medicine, she is also seen in consultation by podiatry. In addition patient was seen by infectious diseases and the wound care nurse. Cultures of the urine were positive for Pseudomonas, Klebsiella, and staph. Patient underwent a distal left great toe amputation by podiatry, cultures of the wound obtained were positive for Streptococcus, coag negative staph, and a gram-positive sue. There are no complications from the patient's surgery and she was seen by physical therapy. Patient did not want to go to an extended care facility and infectious diseases felt the patient could be treated with oral antibiotics at the time of discharge. On 02/19/2020, patient was seen and examined: On examination she appeared in good health and spirits, she does not appear to be in any distress. Vital signs as documented. Skin warm and dry and without overt rashes. Neck without JVD, thyroid appears normal, trachea is midline, neck is supple. Lungs clear, normal air movement was noted. Heart exam notable for regular rhythm, normal sounds and absence of murmurs, rubs or gallops. Abdomen unremarkable and without evidence of organomegaly, masses, or abdominal aortic enlargement, bowel sounds are present in all 4 quadrants, no abdominal tenderness was noted. Extremities nonedematous, no cyanosis was noted, no clubbing was noted, surgical dressing was noted to be present over the patient's left foot- this was not removed for examination. Neuro: Cranial nerves II through XII are grossly intact, sensation to light touch and pinprick is intact . Psych: Patient is alert and oriented x3, she does not appear anxious or depressed, she does not appear agitated. On 02/19/2020 patient was seen and examined and appears stable for discharge home. - Physical Exam Vitals/I&O's: Vital Signs Temp Pulse Resp BP Pulse Ox 98.2 F 74 18 108/65 94 02/19/20 16:22 02/19/20 16:22 02/19/20 16:22 02/19/20 16:22 02/19/20 16:22 Oxygen Flow Rate (L/min) 2 Oxygen Delivery Method Room Air Weight: 103.51 kg Body Mass Index (BMI) 42.4 Finger Stick Blood Glucose 143 Intake and Output for Last 24 Hours 02/19/20 02/20/20 02/21/20 23:59 23:59 23:59 Intake Total 2921.67 / 2921.67 Output Total 3950 / 3950 Balance -1028.33 / -1028.33 Microbiology Past 72 Hours 02/14/20 15:24 Wound - Aerobic & Anaerobic Swabs Gram Stain - Final 02/14/20 15:24 Wound - Aerobic & Anaerobic Swabs Wound Culture - Final Gram positive sue Gram positive sue#2 Coag Negative Staph 02/14/20 15:24 Wound - Aerobic & Anaerobic Swabs Anaerobic Culture - Final Anaerobic cocci 02/12/20 16:43 Blood Culture (Wb) - Anticubital Right Blood Culture - Final No growth in 5 days. 02/12/20 15:47 Blood Culture (Wb) - Left Forearm Blood Culture - Final No growth in 5 days. Discharge Activity: - - weightbearing as described below Weight Bearing Status: No weight bearing - to weightbearing to the toes or ball of the left foot; ok to put weight down on heel for transfers only. Call your doctor if your incision/area has: Continuous Slow Oozing, Sudden Increased Bleeding, Foul Smelling Discharge Call your doctor if you observe: Fever of 101 or Higher, Shortness of breath, Chest pain, Calf discomfort, Uncontrolled pain Cleanse incision/area with: - - Keep dressing clean, dry and intact to the left foot. Home Medications: Medications to take at Discharge Furosemide [Lasix] 20 mg PO DAILY@1700 08/28/18 Furosemide [Lasix] 40 mg PO BREAKFAST 04/05/19 insulin glargine 100 unit/mL (3 mL) subcutaneous pen 15 unit SC [facility] 11/01/19 lisinopril 2.5 mg tablet 2.5 mg PO DAILY 11/01/19 atorvastatin 20 mg tablet 20 mg PO QHS 11/12/19 oxybutynin chloride 15 mg tablet,extended release 24 hr 15 mg PO DAILY 11/12/19 Propranolol HCl 10 mg PO BID 01/13/20 Albuterol Inhaler [Ventolin Hfa] 1 - 2 puff INHALATION Q4H PRN PRN #1 inhaler 01/22/20 Acetaminophen [Tylenol] 1,000 mg PO TID PRN PRN 02/12/20 Linezolid [Zyvox] 600 mg PO BID #23 tab 02/19/20 Metronidazole [Flagyl] 500 mg PO TID #42 tab 02/19/20 Oxycodone [Oxyir] 5 mg PO Q4H PRN PRN 7 Days #30 tab 02/19/20 Polyethylene Glycol 3350 [Miralax] 17 gm PO BID #60 packet 02/19/20 Following Prescriptions Were Given to Patient: Metronidazole [Flagyl] 500 mg PO TID #42 tab Transmission Status: Received by [facility] Polyethylene Glycol 3350 [Miralax] 17 gm PO BID #60 packet Transmission Status: Received by [facility] Oxycodone [Oxyir] 5 mg PO Q4H PRN PRN 7 Days #30 tab PRN Reason: Pain Score 4-10/10 Transmission Status: Received by [facility] Linezolid [Zyvox] 600 mg PO BID #23 tab Transmission Status: Received by [facility] Primary Care Physician: Will Shukla MD [Primary Care Provider] - Please follow up with your Primary Care Physician in: as scheduled Please Follow Up With: Karma George DPM When: next week, sooner if needed. Please Follow Up With: Alpesh Alex MD When: in two weeks-call for appointment at wound center Disposition: Home Minutes spent on discharge:: 33 Patient Condition:: Stable Medical Necessity - Tobacco Use Smoking Status: Never smoker Tobacco Use: Non-smoker, Secondhand Meaningful Use Info Meaningful Use Diagnoses (Choose all that apply): None applicable Inpatient E&M: 74[address] [facility]
== END 2020-02-19 16:39 | disposition home or self-care (01) | DRG 854 ==
LOC: ED 17:19 → ICU 18:25 → MS3 02-13 12:57
PROVIDERS: Anesthesiology; Internal Medicine; Internal Medicine Infectious Disease; Podiatrist Foot & Ankle Surgery; Admitting Provider Internal Medicine; Emergency Provider Emergency Medicine; PCP Family Medicine; Visit Provider Internal Medicine
DX: A41.89 Other specified sepsis (principal); L03.116 Cellulitis of left lower limb; K59.2 Neurogenic bowel, not elsewhere classified; N17.9 Acute kidney failure, unspecified; Z68.41 Body mass index [BMI] 40.0-44.9, adult; I47.1 Supraventricular tachycardia; M86.9 Osteomyelitis, unspecified; L97.429 Non-pressure chronic ulcer of left heel and midfoot with unspecified severity; R65.20 Severe sepsis without septic shock; L03.032 Cellulitis of left toe; I10 Essential (primary) hypertension; E78.5 Hyperlipidemia, unspecified; N31.9 Neuromuscular dysfunction of bladder, unspecified; E11.42 Type 2 diabetes mellitus with diabetic polyneuropathy; Z87.440 Personal history of urinary (tract) infections; Q05.7 Lumbar spina bifida without hydrocephalus; E66.01 Morbid (severe) obesity due to excess calories; K59.09 Other constipation; Z90.49 Acquired absence of other specified parts of digestive tract; Z93.59 Other cystostomy status; Z91.19 Patient's noncompliance with other medical treatment and regimen; Z87.891 Personal history of nicotine dependence; Z79.4 Long term (current) use of insulin; Z87.442 Personal history of urinary calculi; Z86.19 Personal history of other infectious and parasitic diseases; Z83.3 Family history of diabetes mellitus; Z82.3 Family history of stroke; Z82.49 Family history of ischemic heart disease and other diseases of the circulatory system; E11.65 Type 2 diabetes mellitus with hyperglycemia; N30.90 Cystitis, unspecified without hematuria; B96.1 Klebsiella pneumoniae [K. pneumoniae] as the cause of diseases classified elsewhere; D64.9 Anemia, unspecified; E11.69 Type 2 diabetes mellitus with other specified complication; I89.0 Lymphedema, not elsewhere classified; L97.529 Non-pressure chronic ulcer of other part of left foot with unspecified severity; E11.621 Type 2 diabetes mellitus with foot ulcer; B95.1 Streptococcus, group B, as the cause of diseases classified elsewhere; F32.9 Major depressive disorder, single episode, unspecified; F41.9 Anxiety disorder, unspecified; E11.628 Type 2 diabetes mellitus with other skin complications
CPT/HCPCS: 36415; 71045; 73630; 73718; 80048; 80053; 80202; 81001; 82962; 83036; 83605; 83735; 84100; 84145; 84703; 85025; 85027; 87040; 87070; 87075; 87077; 87086; 87088; 87186; 87205; 87635; 87640; 88305; 88311; 93970; 97116; 97162; 97166; 97530; 97802; 99285; J7030; J7040; J7050; J7120; A4216; J2405; U0003

== ENCOUNTER 2020-03-30 17:32 | Emergency (ER) | payer MEDICARE, MEDICAID, SELFPAY ==
[2020-02-14 12:57] VITALS: BMI 42.4
[2020-03-30 17:33] VITALS: BP 146/90; PULSE 110; RESP 15; TEMP 36.4; O2SAT 98; BMI 41.7
[2020-03-30 17:35] VITALS: BP 146/90; PULSE 110; RESP 15; TEMP 36.4; O2SAT 98
--- NOTE | 2020-03-30 17:50 | ED.RN ---
cook clamped for urine specimen
[2020-03-30 18:13] VITALS: BP 118/76; PULSE 82; RESP 20; TEMP 36.6; O2SAT 98
--- NOTE | 2020-03-30 18:13 | EKG12_ITS ---
Test Reason : ABD PAIN Blood Pressure : / mmHG Vent. Rate : 079 BPM Atrial Rate : 079 BPM P-R Int : 140 ms QRS Dur : 078 ms QT Int : 384 ms P-R-T Axes : 012 023 013 degrees QTc Int : 440 ms Normal sinus rhythm Normal ECG Confirmed by YARIEL FITZGERALD, ANUM ([id number]), features editor KRISTEN DOMINGUEZ ([id number]) on 04/02/2020 11:32:20 AM Referred By: JAY Confirmed By:ANUM SALDIVAR MD
[2020-03-30] MEDS: Ondansetron 4 MG/2 ML Vial IV (18:43)
[2020-03-30] MEDS: 0.9% Normal Saline 1,000 ML 999 ML IV (18:43)
[2020-03-30] MEDS: Ketorolac 15 MG/ML Vial IV (18:43)
[2020-03-30 18:49] VITALS: BP 118/76; PULSE 80; RESP 20; TEMP 36.4; O2SAT 96
[2020-03-30 18:51] LABS: Bacteria 0 SEEN /hpf (None Seen); Mucous, Urine 0 SEEN /hpf (<or=2+)
--- NOTE | 2020-03-30 18:53 | ED.DCSUM_ITS ---
History of Present Illness Chief Complaint: Complaint Informant: Patient Onset: Days Context: Gradual Onset Timing: Continuous Narrative: Patient is a 39-year-old female with complex medical history including spina bi fida, uncontrolled diabetes mellitus and UTIs presenting with blue urine from her suprapubic catheter and worsening pain in her suprapubic region as well as her back. She states she does have a history of pyelonephritis. She denies any fever but does report nausea and states she has been able keep anything down today. She is been taking Tylenol like candy. She states her flank pain is worse on the right than the left. She is also started having some blood clots from her urine. She states last time her symptoms like this she was septic and had to be admitted to the hospital. She denies any other complaints at this time. Past Medical History - Allergies and Home Meds Allergies/Adverse Reactions: Allergies mushroom Allergy (Verified 03/30/20 17:46) Anaphylaxis peanut Allergy (Verified 03/30/20 17:46) Anaphylaxis Gadolinium-MRI Contrast Medium Adverse Reaction (Verified 03/30/20 17:46) Vomiting Latex, Natural Rubber Adverse Reaction (Verified 03/30/20 17:46) Rash Primary Care Physician: Will Shukla MD [Primary Care Provider] - Past Medical History: - - Insulin-dependent diabetes mellitus, spina bifida, Anemia, proximal SVT, hyperlipidemia, hypertension Surgical History: cholecystectomy, - - D&C, lumbar back surgery x2, foot surgery x2, abdominal stoma, ventral hernia repair. supraPubic catheter Smoking Status: Never smoker - Family History Paternal Family History: Family History (Last Reviewed 02/12/20 @ 17:42 by Megan Clark NP, COUNTER INTELLIGENCE TECHNICIAN-C) Mother CVA (cerebral vascular accident) Thyroid disorder Diabetes Hypertension Heart disease Hyperlipidemia Myocardial infarction, Onset Age: 54 Father Cancer Grandmother Cancer Family History: Reports: Cancer Sibling Family History: Family History (Last Reviewed 02/12/20 @ 17:42 by Megan Clark NP, COUNTER INTELLIGENCE TECHNICIAN-C) Mother CVA (cerebral vascular accident) Thyroid disorder Diabetes Hypertension Heart disease Hyperlipidemia Myocardial infarction, Onset Age: 54 Father Cancer Grandmother Cancer Family History: Reports: - - Denies known sibling medical history. Maternal Family History: Family History (Last Reviewed 02/12/20 @ 17:42 by Megan Eduardo COUNTER INTELLIGENCE TECHNICIAN, COUNTER INTELLIGENCE TECHNICIAN-C) Mother CVA (cerebral vascular accident) Thyroid disorder Diabetes Hypertension Heart disease Hyperlipidemia Myocardial infarction, Onset Age: 54 Father Cancer Grandmother Cancer Family History: Reports: Cancer, Diabetes, Hypertension, Stroke Review of Systems General: Reports: Malaise. Denies: Chills, Fever, Sweats Eyes: Denies: Visual changes - bilaterally, Diplopia ENT: Denies: Rhinorrhea, Sore throat Cardiovascular: Denies: Chest pain, Palpitations Respiratory: Denies: Dyspnea, Cough, Dyspnea on exertion Gastrointestinal: Reports: Abdominal pain, Nausea, Vomiting. Denies: Diarrhea, Melena, Hematochezia Genitourinary: Reports: - - change in urine output with cook . Denies: Dysuria, Hematuria, Frequency Musculoskeletal: Reports: Back pain. Denies: Extremity Pain Skin: Denies: Rash, Wounds Neurological: Denies: Headache, Weakness, Numbness Physical Exam Vital Signs/Narrative: Vital Signs Temp Pulse Resp BP Pulse Ox 03/30/20 18:49 97.6 F L 80 20 H 118/76 96 03/30/20 18:13 97.8 F 82 20 H 118/76 98 03/30/20 17:35 97.5 F L 110 H 15 146/90 H 98 03/30/20 17:33 97.5 F L 110 H 15 146/90 H 98 Inital Vital Signs reviewed: Yes General: Well nourished, Well developed, No Acute Distress Head: Normocephalic, Atraumatic Eyes: Perrl, EOMI ENT: Moist mucous membranes, No rhinorrhea Neck: Supple, Nontender Cardiovascular: Regular rhythm, No murmurs, Tachycardia Respiratory: No distress, CTA bilaterally, Chest nontender Abdomen: Soft, Nondistended, Normal bowel sounds, Tender - Suprapubic : - - Suprapubic Cook catheter in place, green/blue-tinged urine in the bag. Back: Normal Inspection, CVA tenderness. Negative for: Spinal tenderness Extremities: Nontender, No edema Skin: Normal color, No rash Neurological: Alert, Oriented x3, Cranial nerves II-XII grossly intact, Normal Strength, Normal Sensation Psychological: Normal affect, Normal Mood Diagnostic/Tx/Re-eval Laboratory Data 03/30/20 03/30/20 03/30/20 18:30 18:30 18:30 WBC 10.2 RBC 4.61 Hgb 13.7 Hct 41.6 MCV 90.2 MCH 29.7 MCHC 32.9 RDW Std Deviation 42.9 RDW Coeff of Claude 13.1 Plt Count 235 MPV 10.9 Immature Gran % (Auto) 1.000 H Neut % (Auto) 64.5 Lymph % (Auto) 23.0 [facility] % (Auto) 8.7 Eos % (Auto) 2.1 Baso % (Auto) 0.7 Absolute Neuts (auto) 6.4 Absolute Lymphs (auto) 2.28 Nucleated RBC % 0 PT 12.1 INR 1.0 APTT 29.5 Sodium 136 Potassium 4.4 Chloride 104 Carbon Dioxide 25.0 Anion Gap 7 BUN 12 Creatinine 1.11 H Estim Creat Clear Calc 54.35 Est GFR (MDRD) Af Amer 71 Est GFR (MDRD) Non-Af 58 L BUN/Creatinine Ratio 10.8 Glucose 373 H Lactic Acid Calcium 9.9 Total Bilirubin 0.30 AST 59 H ALT 53 Alkaline Phosphatase 85 Total Protein 8.0 Albumin 3.4 Globulin 4.6 H Albumin/Globulin Ratio 0.7 L Urine Color Urine Clarity Urine pH Ur Specific Whittaker Urine Protein Urine Glucose (UA) Urine Ketones Urine Occult Blood Urine Nitrite Urine Bilirubin Urine Urobilinogen Ur Leukocyte Esterase Urine RBC Urine WBC Ur Squamous Epith Cells Urine Bacteria Urine Mucus 03/30/20 03/30/20 18:30 18:30 WBC RBC Hgb Hct MCV MCH MCHC RDW Std Deviation RDW Coeff of Claude Plt Count MPV Immature Gran % (Auto) Neut % (Auto) Lymph % (Auto) [facility] % (Auto) Eos % (Auto) Baso % (Auto) Absolute Neuts (auto) Absolute Lymphs (auto) Nucleated RBC % PT INR APTT Sodium Potassium Chloride Carbon Dioxide Anion Gap BUN Creatinine Estim Creat Clear Calc Est GFR (MDRD) Af Amer Est GFR (MDRD) Non-Af BUN/Creatinine Ratio Glucose Lactic Acid 2.3 H* Calcium Total Bilirubin AST ALT Alkaline Phosphatase Total Protein Albumin Globulin Albumin/Globulin Ratio Urine Color Yellow Urine Clarity Sl. Cloudy Urine pH 6.0 Ur Specific Whittaker 1.015 Urine Protein 30 H Urine Glucose (UA) 1000 H Urine Ketones Negative Urine Occult Blood 50 H Urine Nitrite Negative Urine Bilirubin Negative Urine Urobilinogen Normal Ur Leukocyte Esterase 500 H Urine RBC 0-5 SEEN Urine WBC 25-50 SEEN Ur Squamous Epith Cells 0-5 SEEN Urine Bacteria 0 SEEN Urine Mucus 0 SEEN - Rhythm Strip Rhythm Strip: Sinus Rhythm Rate: 79 Ectopy: None - EKG Initial EKG Interpretation: Sinus Rhythm, - - Sinus rhythm at a rate of 79 Normal axis Normal intervals Normal ST segments - Medical Decision Making Patient evaluated for concern for UTI and change in urine output. She is had about 3 days of blue-tinged urine and not having some clots as well. She is been taking Tylenol with no relief of her pain. She is not due to have her Cook catheter exchanged until next week by Dr. Mejia. She also follows up with another urologist in the [facility] system for her main care, Dr. Hancock. Patient is mildly tachycardic but otherwise well-appearing on exam.Her medical history sepsis work-up is initiated. Her white blood cell count is actually normal at 10.2 and her hemoglobin is normal at 13.7. Her kidney function is at her baseline with a creatinine of 1.11. She not have any significant electrolyte abnormalities except for hyperglycemia but she has a normal anion gap. Patient given IV fluids in the emergency room. She does have a mildly elevated lactate at 2.3 patient is otherwise well-appearing. Patient does have 25-50 white blood cells in her urine however no bacteria seen. Given the green discoloration of her urine I am concerned for Pseudomonas infection. Most recent culture shows that patient had Pseudomonas sensitive to Cipro so she will be started on ciprofloxacin. At this time she is well-appearing I think a good candidate for outpatient follow-up treatment. She is given Toradol for pain control. Patient is not given any opioids as she does have a care plan. She is started on Pyridium as well for her urinary symptoms. She will follow-up with her urologist in [place]. She is given return precautions. She verbalized agreement understand this plan. She discharged home in stable condition. ED Disposition - Plan for ED Patient: Disposition: Home or Assisted Living Diagnosis: UTI (urinary tract infection), Abdominal pain Instructions: ED CYSTITIS Female Adult Prescriptions: Ciprofloxacin [Cipro] 250 mg PO BID #14 tab Transmission Status: Pending to [facility] #30 Phenazopyridine HCl [Pyridium] 200 mg PO TID #6 tab Transmission Status: Pending to [facility] Referrals: Will Shukla MD [Primary Care Provider] - Additional Instructions: Please call your urologist at the [facility] for follow-up in the next few days. Return if you develop fever or worsening symptoms.
[2020-03-30 18:59] LABS: Color, Urine Yellow (Yellow); Glucose, Dipstick 1000 mg/dl (Normal); Ketone-Dipstick Negative (Negative); Leukocyte Esterase-Dipstick 500 /ul (Negative); Nitrite-Dipstick Negative (Negative); Occult Blood-Urine 50 /ul (Negative); Protein-Dipstick 30 mg/dl (Negative); Specific Gravity, Urine 1.015 (1.002-1.030); Urine Bilirubin Dipstick Negative (Negative); Urine Clarity Sl. Cloudy (Clear); Urine Urobilinogen Normal (Normal)
[2020-03-30 19:05] LABS: Prothrombin Time (Protime)PT. 12.1 SECONDS (11.7-14.9)
[2020-03-30 19:10] LABS: Hematocrit 41.6 % (37-47); Hemoglobin 13.7 g/dL (12.0-15.0); Mean Corp Hgb Conc 32.9 g/dL (32-36); Mean Corpuscular Hgb 29.7 pg (27.0-32.0); Mean Corpuscular Volume 90.2 fL (81-99); Mean Platelet Vol. 10.9 fl (6.2-12.0); NRBC Flagged by Analyzer 0 % (0-5); Platelet Count 235 K/mm3 (150-450); RBC Distribution Width CV 13.1 % (11.6-14.6); RBC Distribution Width SD 42.9 fl (35.1-43.9); Red Blood Count 4.61 M/mm3 (4.2-5.4); White Blood Count 10.2 K/mm3 (4.4-11.0)
[2020-03-30 19:14] VITALS: BP 104/75; PULSE 78; RESP 20; TEMP 35.9; TEMP 36.4; O2SAT 96
[2020-03-30 19:14] LABS: Partial Thromboplast Time 29.5 Seconds (24.1-36.2); Red Blood Cells-Urine 0-5 SEEN /hpf (0-5); Squamous Epithelial Cells - UA 0-5 SEEN /hpf (5-10); White Blood Cells 25-50 SEEN /hpf (0-5)
[2020-03-30 19:16] LABS: ALB/GLOB Ratio 0.7 RATIO (0.9-2.4); AST(SGOT) 59 U/L (15-37); Alanine Aminotransfer ALT/SGPT 53 U/L (13-56); Albumin, Serum 3.4 g/dL (3.2-5.0); Alkaline Phosphatase 85 U/L (45-117); Anion Gap 7 (5-15); BUN 12 mg/dL (7-18); BUN/Creat Ratio 10.8 RATIO (10-20); Calcium,Total 9.9 mg/dL (8.5-10.1); Chloride 104 mmol/L (98-107); Creatinine, Serum 1.11 mg/dL (0.55-1.02); EST Glomerular Filtration Rate 58 mL/min (>60); Est Glom Filt Rate - Afr Amer 71 mL/min (>60); Estimated Creatinine Clearance 54.35 ml/min; Globulin 4.6 g/dL (2.2-4.2); Glucose 373 mg/dL (74-106); Potassium 4.4 mmol/L (3.5-5.1); Sodium Level 136 mmol/L (136-145)
[2020-03-30 19:18] LABS: Absolute Lymphocyte Count 2.28 X10^3/uL (0.83-4.51); Absolute Neutrophil Count 6.4 X10^3/uL (2.0-7.7); Basophil# 0.07 X10^3/uL; Basophil% 0.7 % (0-1); Eosinophil# 0.21 X10^3/uL; Eosinophils% 2.1 % (0-5); Lymphocyte # 2.28 X10^3/ul (4.0); Monocyte# 0.86 X10^3/uL; Monocyte% 8.7 % (0-10); Neutrophil # 6.38 X10^3/uL (2.7-7.7); Neutrophil % 64.5 % (47-70)
[2020-03-30 19:20] LABS: Lactic Acid 2.3 mmol/L (0.4-1.9)
[2020-03-30] MEDS: Phenazopyridine 95 MG Tablet 190 MG PO (21:18)
[2020-03-30] MEDS: Ciprofloxacin 250 MG Tablet PO (21:18)
[2020-03-30 21:25] VITALS: BP 109/69; PULSE 75; RESP 16; O2SAT 96
[2020-03-30 22:14] LABS: Reflex Lactate? N
== END 2020-03-30 21:26 | disposition home or self-care (01) ==
PROVIDERS: Emergency Provider Emergency Medicine; PCP Family Medicine
DX: N39.0 Urinary tract infection, site not specified (principal); R10.9 Unspecified abdominal pain; E11.9 Type 2 diabetes mellitus without complications; E78.5 Hyperlipidemia, unspecified; I10 Essential (primary) hypertension; Q05.9 Spina bifida, unspecified; Z79.4 Long term (current) use of insulin; Z82.49 Family history of ischemic heart disease and other diseases of the circulatory system; Z90.49 Acquired absence of other specified parts of digestive tract; Z91.040 Latex allergy status
CPT/HCPCS: 80053; 81001; 83605; 85025; 85610; 85730; 87040; 87077; 87086; 87088; 87186; 93005; 96361; 96374; 96375; 99285; J7030; A4216; J2405

== ENCOUNTER 2020-06-01 22:43 | Emergency (ER) | payer MEDICARE, MEDICAID, SELFPAY ==
[2020-06-01 22:44] VITALS: BP 123/98; PULSE 95; RESP 18; TEMP 36.2; O2SAT 97; BMI 43.0
--- NOTE | 2020-06-01 22:59 | EKG12_ITS ---
Test Reason : EDEMA Blood Pressure : / mmHG Vent. Rate : 089 BPM Atrial Rate : 089 BPM P-R Int : 142 ms QRS Dur : 076 ms QT Int : 366 ms P-R-T Axes : 024 029 016 degrees QTc Int : 445 ms Normal sinus rhythm Confirmed by STEFANI FITZGERALD, RASHAWN ([id number]), editorial specialist WILBUR FARRAR ([id number]) on 06/03/2020 9:28:21 AM Referred By: NADIRA Confirmed By:RASHAWN KO MD
--- NOTE | 2020-06-01 23:16 | ED.VIS.GEN ---
History of Present Illness Chief Complaint: Edema Informant: Patient Narrative: Patient presents with bilateral lower extremity pain, this is been ongoing for a few days. She tells me her legs are more swollen than normal. She is also complaining of her blood sugars being quite elevated. She is describing lower extremity pain as aching and burning. She thought she had subjective fever at home. She has no cough congestion or shortness of breath she denies any abdominal pain. She does have a history of spina bifida and suprapubic Morales catheter. I do notice dark urine in there but she tells me this is baseline for her urine. Past Medical History - Allergies and Home Meds Allergies/Adverse Reactions: Allergies mushroom Allergy (Verified 03/30/20 17:46) Anaphylaxis peanut Allergy (Verified 03/30/20 17:46) Anaphylaxis Gadolinium-MRI Contrast Medium Adverse Reaction (Verified 03/30/20 17:46) Vomiting Latex, Natural Rubber Adverse Reaction (Verified 03/30/20 17:46) Rash Primary Care Physician: Will Shukla MD [Primary Care Provider] - Past Medical History: - - Spina bifida, diabetes, suprapubic catheter Surgical History: cholecystectomy, - - D&C, lumbar back surgery x2, foot surgery x2, abdominal stoma, ventral hernia repair. supraPubic catheter Smoking Status: Never smoker - Family History Paternal Family History: Family History (Last Reviewed 02/12/20 @ 17:42 by Megan Clark NP, LEAD CLINICAL RESEARCH COORDINATOR-C) Mother CVA (cerebral vascular accident) Thyroid disorder Diabetes Hypertension Heart disease Hyperlipidemia Myocardial infarction, Onset Age: 54 Father Cancer Grandmother Cancer Family History: Reports: Cancer Sibling Family History: Family History (Last Reviewed 02/12/20 @ 17:42 by Megan Clark NP, LEAD CLINICAL RESEARCH COORDINATOR-C) Mother CVA (cerebral vascular accident) Thyroid disorder Diabetes Hypertension Heart disease Hyperlipidemia Myocardial infarction, Onset Age: 54 Father Cancer Grandmother Cancer Family History: Reports: - - Denies known sibling medical history. Maternal Family History: Family History (Last Reviewed 02/12/20 @ 17:42 by Megan Clark NP, LEAD CLINICAL RESEARCH COORDINATOR-C) Mother CVA (cerebral vascular accident) Thyroid disorder Diabetes Hypertension Heart disease Hyperlipidemia Myocardial infarction, Onset Age: 54 Father Cancer Grandmother Cancer Family History: Reports: Cancer, Diabetes, Hypertension, Stroke Review of Systems All systems negative except as indicated General: Reports: Fever Eyes: Denies: Visual changes - bilaterally ENT: Denies: Rhinorrhea, Sore throat Cardiovascular: Denies: Chest pain, Palpitations Respiratory: Denies: Dyspnea, Cough, Sputum Gastrointestinal: Denies: Abdominal pain, Nausea, Vomiting Genitourinary: Reports: - - Suprapubic catheter with dark urine, no change per patient Musculoskeletal: Reports: Extremity Pain Skin: Denies: Rash Neurological: Denies: Headache, Weakness Endocrine: Denies: Polyuria, Polydipsia Hematologic: Denies: Easy bruising, Easy bleeding Physical Exam Vital Signs/Narrative: Vital Signs Temp Pulse Resp BP Pulse Ox 06/01/20 22:44 97.2 F L 95 18 123/98 H 97 General: - - Patient appears chronically ill, as I walk into the room she does not appear in significant distress Head: Normocephalic, Atraumatic Eyes: Negative for: Pale conjunctiva ENT: Moist mucous membranes Neck: Supple Cardiovascular: Regular rate, Regular rhythm, No murmurs Respiratory: No distress, CTA bilaterally Abdomen: Soft, Nontender, - - Suprapubic catheter site is clean dry and intact Back: Nontender, Normal Inspection. Negative for: CVA tenderness Extremities: - - Patient has bilateral lower extremity pain, mostly in the feet, no obvious pitting edema although the legs are obese. No erythema or Calor present. Skin: Normal color, No rash, - - No cellulitis is seen Neurological: Alert, - - Decreased bilateral lower extremity strength however this is chronic for her. Otherwise no focal deficits. Diagnostic/Tx/Re-eval Chest X-Ray - ED: 1 View, Read by ED Physician, Read by Radiologist, Normal, Heart, Lungs, Mediastinum - Rhythm Strip Rhythm Strip: Sinus Rhythm Rate: 89 Ectopy: None - EKG Initial EKG Interpretation: - - Sinus rhythm with a rate of 89. Normal MS and QTc intervals. No ischemic changes seen. Interpreted by emergency doctor - Medical Decision Making Patient has an unremarkable emergency department work-up, she certainly has a urinary tract infection glucose is slightly elevated but there is no anion gap and negative ketones. She otherwise appears well and I will discharge her with antibiotics. ED Disposition - Plan for ED Patient: Disposition: Home or Assisted Living Diagnosis: UTI (urinary tract infection), Hyperglycemia Instructions: When to Use Antibiotics Prescriptions: Smz/Tmp Ds [Bactrim Ds] 1 tab PO BID #14 tab Transmission Status: Pending to [facility] #30 Referrals: Will Shukla MD [Primary Care Provider] - 3-5 Days
[2020-06-01 23:18] LABS: Mucous, Urine 0 SEEN /hpf (<or=2+)
--- NOTE | 2020-06-01 23:20 | RAD_ITS ---
STUDY: X-RAY CHEST REASON FOR EXAM: Female, 39 years old. BILATERAL LEG SWELLING AND PAIN. INCREASED FATIGUE. INCREASED URINE OUTPUT. TECHNIQUE: Frontal view COMPARISON: 02/12/2020 FINDINGS: The lungs are clear and expanded. There is no demonstrated pleural abnormality. Normal size heart. Normal mediastinum and cristiano. Normal visualized pulmonary arteries. Normal visualized aortic arch and descending thoracic aorta. Normal visualized thoracic spine. Normal visualized ribs, clavicles, and shoulders. There is no demonstrated abnormality of the visualized soft tissue structures of the upper abdomen. RAD/Chest 1 View (Portable) IMPRESSION: Normal x-ray examination of the chest. Electronically Signed: Delvis Bryant DO at 23:51 EST Tel [phone], Service support ,
[2020-06-01 23:24] LABS: Color, Urine Yellow (Yellow); Glucose, Dipstick 1000 mg/dl (Normal); Ketone-Dipstick 15 mg/dl (Negative); Leukocyte Esterase-Dipstick 500 /ul (Negative); Nitrite-Dipstick Negative (Negative); Occult Blood-Urine 50 /ul (Negative); Protein-Dipstick 100 mg/dl (Negative); Specific Gravity, Urine 1.015 (1.002-1.030); Urine Bilirubin Dipstick Negative (Negative); Urine Clarity Cloudy (Clear); Urine Urobilinogen 1 mg/dl (Normal)
[2020-06-01 23:27] LABS: ALB/GLOB Ratio 0.7 RATIO (0.9-2.4); AST(SGOT) 52 U/L (15-37); Alanine Aminotransfer ALT/SGPT 61 U/L (13-56); Albumin, Serum 3.6 g/dL (3.2-5.0); Alkaline Phosphatase 100 U/L (45-117); Anion Gap 7 (5-15); BUN 9 mg/dL (7-18); BUN/Creat Ratio 9.7 RATIO (10-20); Calcium,Total 9.6 mg/dL (8.5-10.1); Chloride 103 mmol/L (98-107); Creatinine, Serum 0.93 mg/dL (0.55-1.02); EST Glomerular Filtration Rate 72 mL/min (>60); Est Glom Filt Rate - Afr Amer 87 mL/min (>60); Estimated Creatinine Clearance 64.87 ml/min; Globulin 4.9 g/dL (2.2-4.2); Glucose 251 mg/dL (74-106); Lipase 116 U/L (73-393); Potassium 4.1 mmol/L (3.5-5.1); Protein, Total 8.5 g/dL (6.4-8.2); Sodium Level 135 mmol/L (136-145)
[2020-06-01 23:30] LABS: Bacteria 3+ /hpf (None Seen); Red Blood Cells-Urine 0-5 SEEN /hpf (0-5); Squamous Epithelial Cells - UA 0-5 SEEN /hpf (5-10); White Blood Cells 10-25 SEEN /hpf (0-5)
[2020-06-01 23:34] LABS: Absolute Lymphocyte Count 2.88 X10^3/uL (0.83-4.51); Absolute Neutrophil Count 10.1 X10^3/uL (2.0-7.7); Basophil# 0.09 X10^3/uL; Basophil% 0.6 % (0-1); Eosinophil# 0.25 X10^3/uL; Eosinophils% 1.7 % (0-5); Hematocrit 43.7 % (37-47); Hemoglobin 14.3 g/dL (12.0-15.0); Lymphocyte # 2.88 X10^3/ul (4.0); Lymphocyte % 19.7 % (19-41); Mean Corp Hgb Conc 32.7 g/dL (32-36); Mean Corpuscular Hgb 28.9 pg (27.0-32.0); Mean Corpuscular Volume 88.3 fL (81-99); Monocyte# 1.08 X10^3/uL; Monocyte% 7.4 % (0-10); NRBC Flagged by Analyzer 0 % (0-5); Neutrophil # 10.05 X10^3/uL (2.7-7.7); Platelet Count 232 K/mm3 (150-450); RBC Distribution Width CV 12.9 % (11.6-14.6); RBC Distribution Width SD 41.8 fl (35.1-43.9); Red Blood Count 4.95 M/mm3 (4.2-5.4); White Blood Count 14.6 K/mm3 (4.4-11.0)
[2020-06-02] MEDS: Smz/Tmp Ds Tablet 1 TABLET PO (00:25)
[2020-06-02 00:26] VITALS: BP 122/79; PULSE 86; RESP 16; O2SAT 97
== END 2020-06-02 00:33 | disposition home or self-care (01) ==
PROVIDERS: Emergency Provider Emergency Medicine; PCP Family Medicine
DX: N39.0 Urinary tract infection, site not specified (principal); E11.65 Type 2 diabetes mellitus with hyperglycemia; Q05.9 Spina bifida, unspecified; Z82.49 Family history of ischemic heart disease and other diseases of the circulatory system; Z83.3 Family history of diabetes mellitus; Z90.49 Acquired absence of other specified parts of digestive tract; Z91.040 Latex allergy status; Z83.49 Family history of other endocrine, nutritional and metabolic diseases
CPT/HCPCS: 71045; 80053; 81001; 82009; 83690; 85025; 93005; 99284; A4216

== ENCOUNTER 2020-06-29 21:55 | Emergency (ER) | payer MEDICARE, MEDICAID, SELFPAY ==
[2020-06-29 21:57] VITALS: BP 152/102; PULSE 88; RESP 18; TEMP 36.1; O2SAT 99; BMI 59.4
--- NOTE | 2020-06-29 22:09 | RAD_ITS ---
STUDY: X-RAY - LUMBAR SPINE REASON FOR EXAM: Female, 39 years old. Wall. Back pain. TECHNIQUE: 3 view(s) of the lumbar spine were obtained. COMPARISON: None FINDINGS: Normal lumbar lordosis. There is no substantial scoliosis. There is a normal alignment of the vertebrae. There is evidence of laminectomies from L3 through S1. Vertebral endplates are unremarkable. Normal disc space heights. There is no evidence of acute fracture or loss of vertebral axial height. The soft tissue structures are unremarkable. RAD/Lumbar Spine 2 or 3 Views IMPRESSION: L3-S1 laminectomies. There is no acute abnormality of the lumbar spine. Electronically Signed: José Luis Birmingham DO at 23:19 EST Tel [phone], Service support ,
--- NOTE | 2020-06-29 22:09 | RAD_ITS ---
STUDY: X-RAY - LEFT TIBIA AND FIBULA REASON FOR EXAM: Female, 39 years old. Fall. Left leg pain. TECHNIQUE: AP and lateral view(s) of the tibia and fibula were obtained. COMPARISON: None. FINDINGS: Normal visualized tibia. Normal visualized fibula. There is no acute fracture, dislocation or destructive osseous pathology. The knee and ankle appear grossly normal. Question minimal soft tissue swelling over the upper mcdonald. RAD/Tibia & Fibula 2 Views IMPRESSION: The visualized fracture or dislocation. There is questionable soft tissue swelling over the upper mcdonald. Electronically Signed: José Luis Birmingham DO at 23:34 EST Tel [phone], Service support ,
--- NOTE | 2020-06-29 22:09 | RAD_ITS ---
STUDY: X-RAY - LEFT FOOT CLINICAL: Female, 39 years old. Fall. Left foot pain. TECHNIQUE: 3 view(s) of the foot. COMPARISON: 02/12/2020. FINDINGS: There is an enthesophyte involving the posterior superior calcaneus at the site of insertion of the Achilles tendon. Normal talus and tarsal bones Arthrosis of the visualized subtalar, talonavicular, calcaneocuboid, tarsal and tarsometatarsal articulations. Normal first through fourth metatarsi. There is further resorption of the fifth metatarsal when compared to the previous examination. Normal metatarsophalangeal joint of the great toe. Normal tibial and fibular sesamoid bones. Again seen is resection of the distal phalanx. There is no air in the soft tissues along the anterior aspect of the proximal phalanx without any cortical disruption. Normal second through fifth metatarsophalangeal joints. Normal interphalangeal joints and phalanges of the lesser toes. The soft tissue structures are unremarkable. RAD/Foot min 3 Views IMPRESSION: 1. Air in the soft tissues at the tip of the great toe without bony resorption. 2. No other major interval change when compared to 07/16/2019. Electronically Signed: José Luis Birmingham DO at 23:33 EST Tel [phone], Service support ,
[2020-06-29] MEDS: Naproxen 500 MG Tablet PO (22:14)
--- NOTE | 2020-06-29 22:40 | RAD_ITS ---
STUDY: X-RAY - LEFT FEMUR REASON FOR STUDY: Female, 39 years old. Wall. Left leg pain. TECHNIQUE: AP and lateral view(s) of the femur. COMPARISON: None. FINDINGS: Normal visualized femur. There is no fracture or dislocation. The hip and knee appear grossly intact. Normal visualized soft tissue structure. RAD/Femur Min 2 Views IMPRESSION: Normal x-ray examination of the left femur. Electronically Signed: José Luis Birmingham DO at 23:27 EST Tel [phone], Service support ,
--- NOTE | 2020-06-29 23:01 | CT_ITS ---
STUDY: CT LEFT FOOT REASON FOR EXAM: Female, 39 years old. Status post fall. Fracture on earlier x-ray. History of first and fifth ray surgeries due to osteomyelitis. RADIATION DOSAGE (If Supplied By Facility): CTDIvol = ( 15.35 ) mGy, DLP = ( 388.30 ) mGycm TECHNIQUE: Thin section transaxial imaging of the foot was obtained, with sagittal and coronal reconstructed images. Individualized dose optimization techniques were used for this CT. COMPARISON: Left foot, 06/29/2020 FINDINGS: On the axial images there is a nondisplaced fracture through the lateral aspect of the distal tibia extending into the distal tibiofibular joint. Normal distal fibula. Normal talus, calcaneus, and tarsal bones. There is a small enthesophyte at the insertion of the Achilles tendon onto the calcaneus. Normal visualized tibiotalar, subtalar, talonavicular, calcaneocuboid, tarsal and tarsometatarsal articulations. Normal first metatarsal. There is a nondisplaced fracture through the base of the second metatarsal as noted on the plain film. There also appears to be a nondisplaced fracture through the inferior aspect of the base of the third metatarsal. The fourth metatarsal is unremarkable. There is remote resection of the fifth distal metatarsal is resorption of the stump. Normal metatarsophalangeal joint of the great toe. Normal tibial and fibular sesamoid bones. Normal proximal phalanx of the great toe. The distal phalanx is absent. There is no visualized air in soft tissues as suspected on the plain film. There is no evidence of resorption. Normal second through fourth metatarsophalangeal joints. Normal interphalangeal joints and phalanges of the lesser toes. Generalized soft tissue swelling of the foot. CT/Extremity Lower without Contra IMPRESSION: 1. Nondisplaced fractures of the bases of the second and third metatarsals. 2. Small nondisplaced fracture through the lateral aspect of the distal tibia involving the distal tibiofibular joint. 3. Surgical changes of the fifth metatarsal and great toe. Electronically Signed: José Luis Birmingham DO at 23:48 EST Tel [phone], Service support ,
--- NOTE | 2020-06-29 23:20 | ED.DCSUM_ITS ---
- ER Visit Summary Date of Service: 06/29/20 Chief Complaint: Fall History of Present Illness: The patient is a [address] Shukla. She reports that she stood up too fast after using the commode and got lightheaded and fell. She cannot have a loss of consciousness. She is not on anticoagulants. She complains of low back pain is 5 out of 10 severity and pain from her left hip all the way to her left foot that is 10 out of 10 in severity. Review of systems: General: No fever, chills, cold sweats. Cardiovascular: No chest pain, palpitations. Respiratory: No cough, shortness of breath, dyspnea on exertion. Gastrointestinal: No abdominal pain, nausea, vomiting, diarrhea, melena, or hematochezia. Genitourinary: Suprapubic catheter that is draining well. Skin: No rash. Neuro: No headache, numbness, weakness. Physical Examination: Vitals: Stable. Afebrile. Neck: No vertebral tenderness. Full ROM without difficulty. Cleared by NEXUS criteria. Back: Mild diffuse tenderness palpation over the lumbar spine paraspinous musculature and lumbar region bilaterally. No point tenderness. General: A&O x 3. NAD. Cardiovascular exam: Regular rate and rhythm, no murmur, rub or gallop. Respiratory exam: Chest nontender. No crepitus. Clear to auscultation bilaterally. No wheezes or stridor. Abdominal exam: Soft, nontender, nondistended, normal bowel sounds. No pain in RUQ or LUQ specifically. No peritoneal signs. Extremity: Moderate tenderness palpation is diffuse over her entire left femur and left tibia/fibula. There is no point tenderness. She has severe tenderness to palpation and soft tissue swelling over her left foot. Test Results: Clinical Impression(s) from Imaging Studies Foot X-Ray 06/29/20 22:09 IMPRESSION: 1. Air in the soft tissues at the tip of the great toe without bony resorption. 2. No other major interval change when compared to 07/16/2019. Electronically Signed: José Luis Birmingham DO at 23:33 EST Tel [phone], Service support , ADDENDUM: 06/29/20 1417 Lumbar Spine X-Ray 06/29/20 22:09 IMPRESSION: L3-S1 laminectomies. There is no acute abnormality of the lumbar spine. Electronically Signed: José Luis DorsetDO zenia at 23:19 EST Tel [phone], Service support , Tibia/Fibula X-Ray 06/29/20 22:09 IMPRESSION: The visualized fracture or dislocation. There is questionable soft tissue swelling over the upper mcdonald. Electronically Signed: José Luis Birmingham DO at 23:34 EST Tel [phone], Service support , Femur X-Ray 06/29/20 22:40 IMPRESSION: Normal x-ray examination of the left femur. Electronically Signed: José Luis Birmingham DO at 23:27 EST Tel [phone], Service support , Lower Extremity CT 06/29/20 23:01 IMPRESSION: 1. Nondisplaced fractures of the bases of the second and third metatarsals. 2. Small nondisplaced fracture through the lateral aspect of the distal tibia involving the distal tibiofibular joint. 3. Surgical changes of the fifth metatarsal and great toe. Electronically Signed: José Luis Birmingham DO at 23:48 EST Tel [phone], Service support , Emergency Department Course and Treatment: Patient does have an ED care plan. She was given a dose of naproxen p.o. while x-rays were obtained. The x-ray of her foot shows a fracture of the proximal second metatarsal. When this was seen she was given dose of Tippo p.o. and sent for CT. Patient was placed in a short leg posterior splint. She reports that she has been nonweightbearing at home multiple times and is able to be compliant with this. Treatment Plan: Patient was discussed with Dr. Michael and will be discharged with strict nonweightbearing. She given a prescription for Percocet. Instructed to follow-up in a week for another exam. Return to the emergency department for any worsening symptoms. Disposition: To home in improved and stable condition. Impression: 1. Left second/third metatarsal fractures. 2. Left distal tibia fracture. 3. Ortho-Glass short leg posterior splint, fabricated. 4. ED care plan. This note was generated with [employer] dictation software. It may contain incorrect words, spelling, and punctuation that were not noted in review of the chart prior to signing ED Disposition - Plan for ED Patient: Instructions: ED Fracture, Foot Prescriptions: Oxycodone HCl/Acetaminophen [Percocet 5/325] 1 tablet PO Q6H PRN PRN 5 Days #20 tablet PRN Reason: Pain Score 6-10 Referrals: Karma George DPM [STAFF PHYSICIAN] - 1 Week
[2020-06-29] MEDS: HYDROcodone Bitartrate/Apap 5/325 Tablet PO (23:22)
== END 2020-06-30 00:28 | disposition home or self-care (01) ==
LOC: ED 22:11
PROVIDERS: Emergency Provider Emergency Medicine; PCP Family Medicine
DX: S92.322A Displaced fracture of second metatarsal bone, left foot, initial encounter for closed fracture (principal); S92.332A Displaced fracture of third metatarsal bone, left foot, initial encounter for closed fracture; S82.302A Unspecified fracture of lower end of left tibia, initial encounter for closed fracture; W18.11XA Fall from or off toilet without subsequent striking against object, initial encounter; Y92.89 Other specified places as the place of occurrence of the external cause; Y99.9 Unspecified external cause status
CPT/HCPCS: 29515; 72100; 73552; 73590; 73630; 73700; 99282

== ENCOUNTER 2020-07-07 00:29 | Emergency (ER) | payer MEDICARE, MEDICAID, SELFPAY ==
[2020-07-07 00:30] VITALS: BP 123/94; PULSE 92; RESP 16; TEMP 37.2; O2SAT 98; BMI 41.7
--- NOTE | 2020-07-07 00:45 | ED.VIS.GEN ---
History of Present Illness Chief Complaint: Morales C/O Narrative: This patient is a 39-year-old female who presents with a suprapubic catheter malfunction. She has a history of spina bifida diabetes hypertension hyperlipidemia. She has a history of neurogenic bladder with urinary retention and frequent UTIs. She had her suprapubic catheter changed a week ago. Beginning yesterday she began to develop suprapubic pain and her catheter was not draining. She was able to irrigate it. She states she was able to irrigate some mucoid material. More recently she has been unable to successfully irrigate the catheter and it is no longer draining and she has suprapubic abdominal pain. No fevers nausea vomiting. Past Medical History - Allergies and Home Meds Allergies/Adverse Reactions: Allergies mushroom Allergy (Verified 07/07/20 00:32) Anaphylaxis peanut Allergy (Verified 07/07/20 00:32) Anaphylaxis Gadolinium-MRI Contrast Medium Adverse Reaction (Verified 07/07/20 00:32) Vomiting Latex, Natural Rubber Adverse Reaction (Verified 07/07/20 00:32) Rash Primary Care Physician: Will Shukla MD [Primary Care Provider] - Past Medical History: - - Diabetes, hypertension, hyperlipidemia, spina bifida, neurogenic bladder Surgical History: cholecystectomy, - - D&C, lumbar back surgery x2, foot surgery x2, abdominal stoma, ventral hernia repair. supraPubic catheter Smoking Status: Never smoker - Family History Paternal Family History: Family History (Last Reviewed 02/12/20 @ 17:42 by Megan Clark NP, MECHANICAL EXPERT-C) Mother CVA (cerebral vascular accident) Thyroid disorder Diabetes Hypertension Heart disease Hyperlipidemia Myocardial infarction, Onset Age: 54 Father Cancer Grandmother Cancer Family History: Reports: Cancer Sibling Family History: Family History (Last Reviewed 02/12/20 @ 17:42 by Megan Clark NP, MECHANICAL EXPERT-C) Mother CVA (cerebral vascular accident) Thyroid disorder Diabetes Hypertension Heart disease Hyperlipidemia Myocardial infarction, Onset Age: 54 Father Cancer Grandmother Cancer Family History: Reports: - - Denies known sibling medical history. Maternal Family History: Family History (Last Reviewed 02/12/20 @ 17:42 by Megan Clark NP, MECHANICAL EXPERT-C) Mother CVA (cerebral vascular accident) Thyroid disorder Diabetes Hypertension Heart disease Hyperlipidemia Myocardial infarction, Onset Age: 54 Father Cancer Grandmother Cancer Family History: Reports: Cancer, Diabetes, Hypertension, Stroke Review of Systems All systems negative except as indicated General: Denies: Fever Eyes: Denies: Visual changes - bilaterally ENT: Denies: Bilateral ear pain Cardiovascular: Denies: Chest pain Respiratory: Denies: Dyspnea Gastrointestinal: Reports: Abdominal pain. Denies: Nausea, Vomiting, Diarrhea Skin: Denies: Rash Neurological: Denies: Headache Allergy: Denies: Uticaria Physical Exam Vital Signs/Narrative: Vital Signs Temp Pulse Resp BP Pulse Ox 07/07/20 00:30 99 F 92 16 123/94 H 98 Inital Vital Signs reviewed: Yes General: Well nourished Head: Normocephalic Eyes: EOMI ENT: Moist mucous membranes Neck: Supple Cardiovascular: Regular rate, Regular rhythm Respiratory: No distress, CTA bilaterally Abdomen: Soft, - - Prepubic catheter noted, the site is clean and dry no erythema no drainage, there is a large amount of sediment in the urinary catheter tubing. Skin: Normal color Neurological: Alert Psychological: Normal affect Diagnostic/Tx/Re-eval - Medical Decision Making Suprapubic Morales catheter was changed. Patient had immediate relief of symptoms and drainage of light yellow urine. We will send a new culture. Patient discharged. ED Disposition - Plan for ED Patient: Disposition: Home or Assisted Living Diagnosis: Suprapubic catheter dysfunction Instructions: Caring for Your Suprapubic Catheter Referrals: Will Shukla MD [Primary Care Provider] -
[2020-07-07 01:50] VITALS: BP 142/76
== END 2020-07-07 01:51 | disposition home or self-care (01) ==
LOC: ED 01:34
PROVIDERS: Emergency Provider Emergency Medicine; PCP Family Medicine
DX: T83.090A Other mechanical complication of cystostomy catheter, initial encounter (principal); E11.9 Type 2 diabetes mellitus without complications; I10 Essential (primary) hypertension; E78.5 Hyperlipidemia, unspecified; Q05.9 Spina bifida, unspecified; N31.9 Neuromuscular dysfunction of bladder, unspecified; Z82.49 Family history of ischemic heart disease and other diseases of the circulatory system; Z83.3 Family history of diabetes mellitus; Z83.49 Family history of other endocrine, nutritional and metabolic diseases; Z90.49 Acquired absence of other specified parts of digestive tract; Z91.040 Latex allergy status; Z87.440 Personal history of urinary (tract) infections
CPT/HCPCS: 87077; 87086; 87088; 87186; 99282

== ENCOUNTER 2020-07-13 04:31 | Emergency (ER) | payer MEDICARE, MEDICAID, SELFPAY ==
[2020-07-13 04:32] VITALS: BP 140/92; PULSE 87; RESP 20; TEMP 36.7; O2SAT 97; BMI 41.8
[2020-07-13 04:37] VITALS: BP 140/92; PULSE 86; RESP 20; TEMP 36.7; O2SAT 98
--- NOTE | 2020-07-13 04:48 | ED.DCSUM_ITS ---
- ER Visit Summary Date of Service: 07/13/20 Chief Complaint: [Morales catheter problem] History of Present Illness: The patient is a 39 F [presents to the emergency department with a Morales catheter problem. Patient states that she woke up in pain approximately 2:30 AM and noted that her catheter was not draining. Patient had similar episode about 2 weeks ago and had to have her suprapubic catheter replaced. Patient has history of spina bifida and neurogenic bladder. She has had a suprapubic catheter in for about a year and a half. Patient denies any fevers or recent illness. Patient states that she has been having to irrigate the catheter 3-4 times a day. Patient has history of diabetes, hyper tension, UTIs and history of PSVT.] Physical Examination: [HEENT-PERRLA, EOMI. Cranial nerves II through XII grossly intact. TMs clear. Mucous membranes moist. No adenopathy. Cardiovascular-regular rate and rhythm without murmur or ectopy Lungs-clear to auscultation, chest wall stable without crepitus or subcu emphysema Abdomen-normoactive bowel sounds, soft. Patient has suprapubic tenderness on palpation. She has a suprapubic catheter in place that has large amount of sediment within the tube and no urine noted draining from it. Extremities-intact ?4, normal range of motion, normal pulses, atraumatic] Test Results: [None indicated. I did review patient's urine culture from her last ER visit and she grew out Proteus at 50-80,000 colony-forming units which may indicate colonization. Patient is not had a fever or recent illness therefore I do not feel any further treatment is indicated at this time.] Emergency Department Course and Treatment: [Patient had her suprapubic catheter changed the old catheter was removed which had a large amount of sediment in it and new catheter was placed and immediately returned clear urine and patient had good pain relief with that. Patient was given 1 dose of Azo in the department for some bladder spasm.] Treatment Plan: [To follow-up with her urologist as needed.] Disposition: [Discharged home in stable condition] Impression: [Suprapubic catheter replacement] This note was generated with [employer] software. It may contain incorrect words, spelling, and punctuation that were not noted in review of the chart prior to signing ED Disposition - Plan for ED Patient: Referrals: Will Shukla MD [Primary Care Provider] -
--- NOTE | 2020-07-13 05:07 | ED.DEP ---
ED Disposition - Plan for ED Patient: Instructions: ED Morales Catheter, Care Prescriptions: Phenazopyridine HCl [Pyridium] 200 mg PO BID PRN PRN #10 tab PRN Reason: Pain Prescription Printed Referrals: Will Shukla MD [Primary Care Provider] - Additional Instructions: see your urologist as needed
[2020-07-13] MEDS: Phenazopyridine 95 MG Tablet 190 MG PO (05:08)
[2020-07-13 05:26] VITALS: BP 112/75; PULSE 80; RESP 16; O2SAT 96
== END 2020-07-13 05:27 | disposition home or self-care (01) ==
LOC: ED 05:02
PROVIDERS: Emergency Provider Emergency Medicine; PCP Family Medicine
DX: Z46.6 Encounter for fitting and adjustment of urinary device (principal); E11.9 Type 2 diabetes mellitus without complications; I10 Essential (primary) hypertension; Q05.9 Spina bifida, unspecified; N31.9 Neuromuscular dysfunction of bladder, unspecified; Z87.440 Personal history of urinary (tract) infections
CPT/HCPCS: 99283; A4216

== ENCOUNTER 2020-07-17 02:23 | Emergency (ER) | payer MEDICARE, MEDICAID, SELFPAY ==
[2020-07-17 02:24] VITALS: BP 174/108; PULSE 108; RESP 18; TEMP 36.1; O2SAT 97; BMI 41.5
--- NOTE | 2020-07-17 02:32 | ED.DCSUM_ITS ---
History of Present Illness Chief Complaint: Complaint Detail of Chief Complaint: Blocked suprapubic catheter Informant: Patient, Significant Other Onset: Hours - 1.5 Context: Gradual Onset Timing: Continuous Quality: Suprapubic and right flank Location: Suprapubic and right flank Current Severity: Severe Maximum Severity: Severe Worsened by: Nothing Relieved by: Nothing Associated Symptoms: Denies fevers/chills, nausea/vomiting Narrative: Patient has a suprapubic catheter that has been in place for around 2 years, gets changed regularly, for a neurogenic bladder associated with her spina bifida. She had it changed about a week ago and ever since then she has had thick creamy urine coming out and had it blocked the catheter necessitating a trip to the ER and a change, she states that has recurred again in the past couple hours. She states she has had urine reflux into her right kidney in the past and that is what it feels like it is doing now. Her tried to irrigate the catheter at home with saline, but they were unable to clear the blockage. She has no discharge coming out around the catheter or within it. - Past Medical History (1) Essential hypertension Status: Chronic (2) Hyperlipidemia Status: Chronic (3) Lower extremity edema Status: Chronic (4) Normochromic normocytic anemia Status: Chronic Comment: HGB normal in Apr 2018 (5) PSVT (paroxysmal supraventricular tachycardia) Status: Chronic (6) Spina bifida aperta of lumbar spine Status: Chronic Comment: s/p surgery x 2 weakness and numbness in legs neurogenic bladder and frequent UTIs (7) Type 2 diabetes mellitus with diabetic polyneuropathy Status: Chronic Past Medical History - Allergies and Home Meds Allergies/Adverse Reactions: Allergies mushroom Allergy (Verified 07/17/20 02:26) Anaphylaxis peanut Allergy (Verified 07/17/20 02:26) Anaphylaxis Gadolinium-MRI Contrast Medium Adverse Reaction (Verified 07/17/20 02:26) Vomiting Latex, Natural Rubber Adverse Reaction (Verified 07/17/20 02:26) Rash Primary Care Physician: urologist, your [Other] (as scheduled or sooner if able) Surgical History: cholecystectomy, - - D&C, lumbar back surgery x2, foot surgery x2, abdominal stoma, ventral hernia repair. supraPubic catheter Lives: Spouse/ Significant Other Smoking Status: Never smoker - Family History Paternal Family History: Family History (Last Reviewed 02/12/20 @ 17:42 by Megan Clark NP, EMBEDDED SOFTWARE ENGINEER-C) Mother CVA (cerebral vascular accident) Thyroid disorder Diabetes Hypertension Heart disease Hyperlipidemia Myocardial infarction, Onset Age: 54 Father Cancer Grandmother Cancer Family History: Reports: Cancer Sibling Family History: Family History (Last Reviewed 02/12/20 @ 17:42 by Megan Clark NP, EMBEDDED SOFTWARE ENGINEER-C) Mother CVA (cerebral vascular accident) Thyroid disorder Diabetes Hypertension Heart disease Hyperlipidemia Myocardial infarction, Onset Age: 54 Father Cancer Grandmother Cancer Family History: Reports: - - Denies known sibling medical history. Maternal Family History: Family History (Last Reviewed 02/12/20 @ 17:42 by Megan Clark NP, EMBEDDED SOFTWARE ENGINEER-C) Mother CVA (cerebral vascular accident) Thyroid disorder Diabetes Hypertension Heart disease Hyperlipidemia Myocardial infarction, Onset Age: 54 Father Cancer Grandmother Cancer Family History: Reports: Cancer, Diabetes, Hypertension, Stroke Review of Systems General: Denies: Chills, Fever, Sweats Cardiovascular: Denies: Chest pain, Palpitations Respiratory: Denies: Dyspnea, Cough, Dyspnea on exertion Gastrointestinal: Reports: Abdominal pain. Denies: Nausea, Vomiting Genitourinary: Reports: - - See HPI Skin: Denies: Rash, Wounds Neurological: Denies: Headache Physical Exam Vital Signs/Narrative: Vital Signs Temp Pulse Resp BP Pulse Ox 07/17/20 02:24 97.0 F L 108 H 18 174/108 H 97 Inital Vital Signs reviewed: Yes General: Well nourished, Well developed, Obese, Acute Distress - Uncomfortable, moaning in pain, - - Able to converse Head: Normocephalic, Atraumatic Eyes: Perrl, EOMI Cardiovascular: Regular rate, Regular rhythm, No murmurs, Tachycardia - Mild Respiratory: No distress, CTA bilaterally, Chest nontender Abdomen: Soft, Nondistended, Normal bowel sounds, Tender - Suprapubic, - - Suprapubic catheter in place, site is benign appearing with no discharge or leakage. Catheter appears to be blocked with a thick white fluid. No blood.. Negative for: Guarding Skin: Normal color, No rash, No Trauma Neurological: Alert, Oriented x3, Cranial nerves II-XII grossly intact Psychological: Tearful Diagnostic/Tx/Re-eval - Medical Decision Making I switch the patient suprapubic catheter out, which relieved her symptoms in the obstruction, she put out approximately 500 mL of urine. Her right flank pain resolved as well. She states this has been going on for about 3 weeks total. She recently had a urinalysis 10 days ago that grew out 80,000 or less colony- forming units of Proteus mirabilis that was sensitive. Although I agree this is not significant given the quantity of CFU's, however given this scenario I think it would be reasonable to put her on Bactrim to cover against this infection. For this reason, I did not feel it was going to be helpful to repeat her urinalysis from culture. I discussed all this with her and she was in agreement with this plan of following up with her urologist. Procedures Procedure(s): Suprapubic catheter change --patient is allergic to latex, so a silicone catheter was obtained from the OR, 18 [address] same size as the patient, and I prepped and draped this patient in usual fashion using iodine included with a Morales kit. Competence of the catheter balloon was confirmed. The existing catheter balloon was deflated, the catheter was removed, and immediately the new catheter was inserted with successful drainage of transparent yellow urine and immediate progressive relief of the patient's symptoms. The lumen of the catheter that was removed contained thick discharge apparently causing the obstruction. No complications and patient tolerated well. ED Disposition - Plan for ED Patient: Disposition: Home or Assisted Living Diagnosis: Obstructed suprapubic catheter, Acute urinary retention Instructions: Catheter-Associated Urinary Tract Infections Prescriptions: Smz/Tmp Ds [Bactrim Ds] 1 tab PO BID #20 tab Prescription Printed Referrals: urologist, your [Other] (as scheduled or sooner if able)
[2020-07-17] MEDS: Smz/Tmp Ds Tablet 1 TABLET PO (02:59)
[2020-07-17 03:14] VITALS: BP 168/70; PULSE 82; RESP 18
== END 2020-07-17 03:14 | disposition home or self-care (01) ==
LOC: ED 03:04
PROVIDERS: Emergency Provider Emergency Medicine; PCP Family Medicine
DX: T83.090A Other mechanical complication of cystostomy catheter, initial encounter (principal); R33.9 Retention of urine, unspecified; N31.9 Neuromuscular dysfunction of bladder, unspecified; E11.42 Type 2 diabetes mellitus with diabetic polyneuropathy; E78.5 Hyperlipidemia, unspecified; I10 Essential (primary) hypertension; Q05.9 Spina bifida, unspecified; Z82.49 Family history of ischemic heart disease and other diseases of the circulatory system; Z83.3 Family history of diabetes mellitus; Z83.49 Family history of other endocrine, nutritional and metabolic diseases; Z90.49 Acquired absence of other specified parts of digestive tract; Z91.040 Latex allergy status
CPT/HCPCS: 99283; J7030; A4216

== ENCOUNTER 2020-09-14 06:12 | Emergency (ER) | payer MEDICARE, MEDICAID, SELFPAY ==
[2020-09-14 06:13] VITALS: BP 142/89; PULSE 87; RESP 16; TEMP 36.9; O2SAT 98; BMI 41.1
[2020-09-14 06:16] VITALS: BP 124/72; PULSE 68; RESP 17; TEMP 37.1; O2SAT 98
--- NOTE | 2020-09-14 06:43 | CT_ITS ---
STUDY: CT ABDOMEN AND PELVIS WITHOUT CONTRAST REASON FOR EXAM: Female, 39 years old. Bilateral flank pain. History of spina bifida. RADIATION DOSAGE (If Supplied By Facility): CTDIvol = ( 18.23 ) mGy, DLP = ( 906.33 ) mGycm TECHNIQUE: Transaxial images were obtained from the dome of the diaphragm to the symphysis pubis without oral contrast, and without intravenous contrast. Sagittal and coronal images were reconstructed. Individualized dose optimization techniques were used for this CT. COMPARISON: Comparison is made with prior study dated 12/24/2019. FINDINGS: The visualized lung bases are unremarkable. The visualized portions of the heart are within normal limits. There is decreased attenuation of the liver consistent with steatosis. The patient is status post cholecystectomy. Normal spleen. Normal pancreas. Normal bilateral adrenal glands. 4 mm calculus in the lower pole calyx of the right kidney. Moderate degree of the right hydronephrosis and right hydroureter down to the level of the bladder. No obstructive calculus is seen. Normal left kidney. Normal visualized stomach. Normal small intestine. Normal colon. The appendix is visualized and appears normal. Normal abdominal aorta. Normal inferior vena cava. Normal retroperitoneum. A suprapubic catheter is seen within the urinary bladder. The urinary bladder is empty. There is evidence of air within the urinary bladder. This may represent changes secondary to the presence of the suprapubic catheter. There is evidence of diffuse bladder wall thickening. There is a 2.3 cm cyst in the right ovary. There is a small umbilical hernia containing fat. There is evidence of a prior anterior abdominal wall hernia repair with a mesh. Once again, the patient has a history of a spina bifida with absence of the posterior elements of the L3-L5 vertebral level. Postoperative changes are seen in the overlying subcutaneous tissues. CT/Abdomen/Pelvis without Cont IMPRESSION: Moderate degree of right hydronephrosis and right hydroureter down to the ureterovesical junction without an obstructing calculus. Diffuse bladder wall thickening. A suprapubic catheter is seen within the urinary bladder. Gas is seen within the urinary bladder. This most likely is secondary to the presence of the catheter although emphysematous cystitis should be ruled out. Fatty infiltration of the liver. Electronically Signed: Stephan Sood MD at 8:24 EDT , Service support ,
--- NOTE | 2020-09-14 06:52 | ED.DCSUM_ITS ---
- ER Visit Summary Date of Service: 09/14/20 Chief Complaint: Clogged suprapubic catheter History of Present Illness: The patient is a 39 F who presents with clogged suprapubic catheter that began today. Patient states that she noticed her catheter was not draining today. Patient states that yesterday she noted some blood in her urine. Patient states that today she has pain over the suprapubic area. Patient states it radiates up to both flanks. Patient states nothing makes it better and nothing makes it worse. Patient states she attempted to flush the catheter at home and was only able to get a small amount of fluid back. Patient admits to nausea but denies any vomiting. Patient denies any f patty or chills. Patient denies any chest pain or shortness of breath. Physical Examination: Vital signs are stable. Patient is afebrile. Patient is in no acute distress. Oral mucosa is pink and moist. Neck is supple. Trachea is midline. There is no JVD. Heart was regular rate and rhythm. Lungs are clear and equal bilaterally. Abdomen is soft. Bowel sounds are normal. There is tenderness over the lower abdomen. There is also bilateral CVA tenderness. There is no rebound or guarding noted. Cranial nerves II through XII are intact. There are no focal motor or sensory deficits. Test Results: CBC shows a slight leukocytosis of 11.2. Comprehensive metabolic profile showed an elevated glucose of 291. Serum hCG was negative. Urinalysis was ordered and is pending. CT scan of the abdomen pelvis was ordered and is pending. Emergency Department Course and Treatment: Patient was given a dose of morphine and Zofran here. The suprapubic catheter was replaced. Patient tolerated the procedure well. Disposition: Care of the patient was turned over to the oncoming physician. Impression: 1. Abdominal pain This note was generated with [employer] dictation software. It may contain incorrect words, spelling, and punctuation that were not noted in review of the chart prior to signing ED Disposition - Plan for ED Patient: Referrals: Will Shukla MD [Primary Care Provider] -
[2020-09-14] MEDS: Morphine 4 MG/ML Syringe IV (07:10)
[2020-09-14] MEDS: Ondansetron 4 MG/2 ML Vial IV (07:10)
[2020-09-14 07:18] LABS: Absolute Lymphocyte Count 2.96 X10^3/uL (0.83-4.51); Absolute Neutrophil Count 6.6 X10^3/uL (2.0-7.7); Basophil# 0.09 X10^3/uL; Basophil% 0.8 % (0-1); Eosinophil# 0.22 X10^3/uL; Hematocrit 42.8 % (37-47); Hemoglobin 13.8 g/dL (12.0-15.0); Lymphocyte # 2.96 X10^3/ul (0.83-4.51); Lymphocyte % 26.5 % (19-41); Mean Corp Hgb Conc 32.2 g/dL (32-36); Mean Corpuscular Hgb 29.7 pg (27.0-32.0); Mean Platelet Vol. 10.9 fl (6.2-12.0); Monocyte# 1.17 X10^3/uL; Monocyte% 10.5 % (0-10); NRBC Flagged by Analyzer 0 % (0-5); Neutrophil # 6.55 X10^3/uL (2.7-7.7); Neutrophil % 58.7 % (47-70); Platelet Count 213 K/mm3 (150-450); RBC Distribution Width SD 43.8 fl (35.1-43.9); Red Blood Count 4.65 M/mm3 (4.2-5.4); White Blood Count 11.2 K/mm3 (4.4-11.0)
[2020-09-14 07:33] LABS: ALB/GLOB Ratio 0.8 RATIO (0.9-2.4); AST(SGOT) 45 U/L (15-37); Alanine Aminotransfer ALT/SGPT 68 U/L (13-56); Albumin, Serum 3.5 g/dL (3.2-5.0); Alkaline Phosphatase 111 U/L (45-117); Anion Gap 7 (5-15); BUN 13 mg/dL (7-18); BUN/Creat Ratio 14.2 RATIO (10-20); Calcium,Total 9.2 mg/dL (8.5-10.1); Chloride 101 mmol/L (98-107); Creatinine, Serum 0.92 mg/dL (0.55-1.02); EST Glomerular Filtration Rate 73 mL/min (>60); Est Glom Filt Rate - Afr Amer 88 mL/min (>60); Estimated Creatinine Clearance 65.57 ml/min; Globulin 4.4 g/dL (2.2-4.2); Glucose 291 mg/dL (74-106); Potassium 3.9 mmol/L (3.5-5.1); Protein, Total 7.9 g/dL (6.4-8.2); Sodium Level 135 mmol/L (136-145)
[2020-09-14 07:49] LABS: Internal QC Validated? YES +Cl - CLEAR BKGD; Pregnancy, Serum, hCG Quali. NEGATIVE Negative
[2020-09-14 08:29] LABS: Mucous, Urine 0 SEEN /hpf (<or=2+); Squamous Epithelial Cells - UA 0 SEEN /hpf (5-10)
[2020-09-14 08:30] LABS: Color, Urine Yellow (Yellow); Glucose, Dipstick 1000 mg/dl (Normal); Ketone-Dipstick Negative (Negative); Leukocyte Esterase-Dipstick 500 /ul (Negative); Nitrite-Dipstick Positive (Negative); Occult Blood-Urine 250 /ul (Negative); Protein-Dipstick 100 mg/dl (Negative); Specific Gravity, Urine 1.015 (1.002-1.030); Urine Bilirubin Dipstick Negative (Negative); Urine Clarity Cloudy (Clear); Urine Urobilinogen 1 mg/dl (Normal); Urine pH 6.5 (5.0 - 8.0)
[2020-09-14 08:36] LABS: Bacteria 3+ /hpf (None Seen); Red Blood Cells-Urine 50-100 SEEN /hpf (0-5); White Blood Cells 50-100 SEEN /hpf (0-5)
--- NOTE | 2020-09-14 08:43 | DCINST.ED_ITS ---
ED Disposition - Plan for ED Patient: Disposition: Home or Assisted Living Diagnosis: Encounter for Morales catheter replacement, UTI (urinary tract infection) Instructions: ED Bladder Infection, Female (Adult), ED Morales Catheter, Care Prescriptions: Cefuroxime Axetil [Cefuroxime] 500 mg PO BID #20 tablet Transmission Status: Pending to [facility] Referrals: Will Shukla MD [Primary Care Provider] - 3-5 Days
[2020-09-14 08:56] VITALS: BP 135/79; PULSE 70; RESP 16; O2SAT 94
== END 2020-09-14 08:57 | disposition home or self-care (01) ==
PROVIDERS: Emergency Provider Emergency Medicine; PCP Family Medicine
DX: R10.9 Unspecified abdominal pain (principal); R31.9 Hematuria, unspecified; R11.0 Nausea; M54.9 Dorsalgia, unspecified; E11.9 Type 2 diabetes mellitus without complications; I10 Essential (primary) hypertension; E78.00 Pure hypercholesterolemia, unspecified; Q05.9 Spina bifida, unspecified
CPT/HCPCS: 74176; 80053; 81001; 84703; 85025; 87077; 87086; 87088; 87186; 96374; 96375; 99282; A4216; J2405

== ENCOUNTER 2020-09-23 22:24 | Inpatient (IN) | payer MEDICARE, MEDICAID, SELFPAY ==
[2020-09-23 22:25] VITALS: BP 150/90; PULSE 99; RESP 18; TEMP 36.2; O2SAT 97; BMI 43.0
[2020-09-23 22:27] VITALS: BP 132/72; PULSE 87; RESP 20; TEMP 36.4; O2SAT 96
[2020-09-23 23:08] VITALS: BP 132/72; PULSE 87; RESP 20; TEMP 36.4; O2SAT 96
--- NOTE | 2020-09-23 23:19 | ED.VIS.GI ---
HPI HPI - GI History of Present Illness Chief Complaint: Abd Pain Informant: patient Abdominal Pain/Flank Pain Onset: Weeks (several) Context: Gradual Onset Timing: Continuous Quality: Aching Location: Diffuse (and into low back, mostly on right) Current Severity: Severe Maximum Severity: Severe Worsened by: Nothing Relieved by: Nothing Nausea/Vomiting/Emesis GI Symptom: Positive for Nausea Diarrhea/Melena/Hematochezia GI Symptom: Negative for Diarrhea, Melena and Hematochezia Associated Symptoms Associated Symptoms: Positive for - (abnormal urine appearance -- cloudy and w/ sediment; no blood) Narrative Narrative: Patient is spina bifida with neurogenic bladder and a suprapubic catheter. She is a longstanding history of infections of her bladder related to this, and multiple catheter changes. She was here around 10 days ago and had an infection diagnosed along with a catheter change because it was getting blocked. She states she had the same pain then along with the same symptoms including nausea and vomiting and abnormal urine consistent with prior infections. She states that ever since she was here, the pain has been constant, it has not let up at all, and is actually gotten worse although it is in the same areas, a little worse in her upper abdomen than it had been. She denies any fevers or chills. She has had to flush her catheter 4 or 5 times today in order to get it to flow again because of the amount of sediment. When she flushes the catheter, pain improves slightly transiently but it has not resolved at all. The antibiotic does not seem to help, she took cefuroxime and finished it yesterday. She has not followed up yet. [facility] Medical History (Updated 09/24/20 @ 01:[address] Harry Billings MD) Anxiety and depression Arthritis Cellulitis of left lower extremity Chronic back pain Chronic nausea Constipation Delayed wound healing Diabetes mellitus, type II Diabetic ulcer of left heel with fat layer exposed DJD (degenerative joint disease) of thoracic spine Dysthymic disorder Essential hypertension Hematochezia History of kidney stones History of migraine Hydronephrosis of right kidney Hyperlipidemia Infection of bladder catheter Insomnia Lipomeningocele Lower extremity edema Morbid obesity with BMI of 40.0-44.9, adult Neurogenic bladder Neurogenic bowel Non-compliance Normochromic normocytic anemia Panic attacks PSVT (paroxysmal supraventricular tachycardia) Sepsis Spina bifida aperta of lumbar spine Thyroid cyst Type 2 diabetes mellitus with diabetic polyneuropathy Ulcer of left heel and midfoot with fat layer exposed Uninodular goiter UTI (urinary tract infection) UTI (urinary tract infection) Home Medications furosemide 20 mg PO DAILY@1700 08/28/18 [History Last Taken 02/11/20] furosemide 40 mg PO BREAKFAST 04/05/19 [History Last Taken 02/11/20] insulin glargine 100 unit/mL (3 mL) subcutaneous pen 25 unit SC QHS 11/01/19 [History Last Taken 02/11/20] lisinopril 2.5 mg tablet 2.5 mg PO DAILY 11/01/19 [History Last Taken 02/11/20] oxybutynin chloride 15 mg tablet,extended release 24 hr 15 mg PO DAILY 11/12/19 [History Last Taken 02/11/20] propranolol 10 mg PO BID 01/13/20 [History Last Taken 02/11/20] acetaminophen 1,000 mg PO TID PRN PRN 02/12/20 [History Last Taken 02/12/20] phenazopyridine 200 mg PO BID PRN PRN #10 tab 07/13/20 [Rx Last Taken Unknown] sulfamethoxazole-trimethoprim 1 tab PO BID #20 tab 07/17/20 [Rx Last Taken Unknown] Allergy/AdvReac Type Severity Reaction Status Date / Time mushroom Allergy Anaphylaxis Verified 09/23/20 22:28 peanut Allergy Anaphylaxis Verified 09/23/20 22:28 Gadolinium-MRI Contrast AdvReac Vomiting Verified 09/23/20 22:28 Medium Latex, Natural Rubber AdvReac Rash Verified 09/23/20 22:28 Family History (Reviewed 02/12/20 @ 17:42 by Megan Clark CIVIL ENGINEERING SPECIALIST, CIVIL ENGINEERING SPECIALIST-C) Mother CVA (cerebral vascular accident) Thyroid disorder Diabetes Hypertension Heart disease Hyperlipidemia Myocardial infarction, Onset Age: 54 mother had diabetes Father Cancer skin Grandmother Cancer liver Surgical History (Updated 09/23/20 @ 22:31 by Chasidy Fisher) history insertion suprapubic catheter History of cholecystectomy History of dilation and curettage History of spinal surgery Hx of foot surgery Hx of ventral hernia repair S/P thyroid biopsy (~11/06/19) Status post gastric surgery Social History (Updated 11/13/19 @ 15:[address] Rojas Oates MD) Smoking Status: Never smoker alcohol intake: current substance use type: does not use ROS ROS ED Constitutional Constitutional ED: Denies chills or fever(s) Eyes Eyes: Denies change in vision or diplopia ENT ENT ED: Denies sore throat Cardiovascular Cardiovascular: Denies chest pain or palpitations Respiratory/Chest Respiratory/Chest: Denies cough or dyspnea Gastrointestinal Gastrointestinal: Reports abdominal pain, nausea and vomiting; Denies diarrhea Genitourinary Genitourinary ED: Reports other Details: See HPI ; Denies dysuria or hematuria Musculoskeletal Musculoskeletal: Reports back pain; Denies extremity pain or neck pain Integumentary Denies abscess or rash Neurologic Neurologic: Denies headache(s), paresthesias or weakness Psychiatric Psychiatric: Denies anxiety or depression EXAM Physical Exam Const Vital Signs: 09/23/20 22:25 09/23/20 22:27 09/23/20 23:08 Temperature 97.1 F L 97.6 F L 97.6 F L Temperature Source Temporal Temporal Temporal Pulse Rate 99 87 87 Respiratory Rate 18 20 H 20 H Blood Pressure 150/90 H 132/72 H 132/72 H Blood Pressure Mean 110 92 92 Pulse Ox 97 96 96 Oxygen Delivery Method Room Air Room Air Room Air Positive well nourished, well developed and obese General Appearance ED: well developed and other mild painful distress Nutritional Appearance: obese HEENT Reports moist mucous membranes normocephalic and atraumatic Eyes PERRL and EOMs intact bilaterally Neck no lymphadenopathy and supple Resp normal respiratory effort and clear to auscultation bilaterally Cardio regular rate, regular rhythm and no murmurs GI normal to inspection, nondistended, normoactive bowel sounds, soft to palpation and non-distended Auscultation: normoactive bowel sounds Palpation: soft and tender other (diffusely, worst around bladder) Narrative: Suprapubic in place and flowing, lots of sediment, no blood. Site is benign, there is no discharge around the catheter or erythema at the skin at the site of suprapubic entry. Back/Spine General Back: CVA tenderness right (No tenderness on the left) and other FROM Extremity normal to inspection General Extremety ED: Negative for edema, pulses abnormal or tenderness General Extremity: Negative for edema or pulses abnormal Neuro oriented x3 and CN's II-XII intact bilaterally Sensorium / Orientation: awake, alert, oriented to person, oriented to place and oriented to time Psych mental status grossly normal and thought process normal Skin no rashes or lesions noted and no wounds Rashes: no rashes MDM MDM MDM Narrative Medical decision making narrative: Discussing with patient, I think changing her suprapubic catheter is not necessarily going to be helpful since she is able to get things flowing with a simple flush and the sediment is likely related to infection that is inadequately treated. Additionally, manipulating the catheter puts her at a higher risk of additional infection. She is in agreement, and agrees to leave the present catheter in for now. I reviewed her culture from 10 days ago, it shows 2 organisms, one is resistant to first generation cephalosporins but sensitive to third and fourth generation. Second-generation, which she was placed on, was not tested. Both of the organisms including Pseudomonas are sensitive to ciprofloxacin, and after culture sent she was given a dose of that. Her symptoms were treated, she had improvement transiently but not very much and was still in more pain and vomiting that she was given Reglan. She was offered admission since based on her CT from 10 days ago she has right pyelonephritis, failure of outpatient treatment with the antibiotic that she completed recently, as well as having intractable symptoms. She prefers to be admitted here which I think is reasonable since she really just needs symptom control and antibiotics. Discussed with hospitalist. He requested that the suprapubic catheter be changed for the reason of infection source control. That was done after discussing with the patient and obtaining consent verbally. The patient does meet criteria for sepsis because she has a white blood count elevation and her pulse was in the 90s, but since she did not look clinically ill/septic, blood cultures were not obtained prior to antibiotics being started. I did send a new urine culture. Lab Data Attestation: I reviewed the patient's lab results. Labs: Laboratory Results - last 24 hr 09/23/20 09/23/20 09/23/20 22:55 22:55 23:20 WBC 14.6 H RBC 4.62 Hgb 13.8 Hct 41.4 MCV 89.6 MCH 29.9 MCHC 33.3 RDW Std Deviation 42.5 RDW Coeff of Claude 13.0 Plt Count 261 MPV 11.6 Immature Gran % (Auto) 1.500 H Neut % (Auto) 62.4 Lymph % (Auto) 25.0 Bremer % (Auto) 8.8 Eos % (Auto) 1.7 Baso % (Auto) 0.6 Absolute Neuts (auto) 9.1 H Absolute Lymphs (auto) 3.65 Nucleated RBC % 0 Sodium 135 L Potassium 4.0 Chloride 103 Carbon Dioxide 25.0 Anion Gap 7 BUN 16 Creatinine 1.14 H Estim Creat Clear Calc 52.92 Est GFR (MDRD) Af Amer 68 Est GFR (MDRD) Non-Af 56 L BUN/Creatinine Ratio 14.0 Glucose 340 H Lactic Acid Calcium 8.8 Total Bilirubin 0.30 AST 31 ALT 50 Alkaline Phosphatase 109 Total Protein 8.2 Albumin 3.7 Globulin 4.5 H Albumin/Globulin Ratio 0.8 L Urine Color Yellow Urine Clarity Cloudy Urine pH 7.0 Ur Specific [place] 1.010 Urine Protein 100 H Urine Glucose (UA) 1000 H Urine Ketones Negative Urine Occult Blood 150 H Urine Nitrite Positive H Urine Bilirubin Negative Urine Urobilinogen Normal Ur Leukocyte Esterase 500 H Urine RBC 50-100 SEEN Urine WBC 25-50 SEEN Ur Squamous Epith Cells 0-5 SEEN Urine Bacteria 1+ Urine Mucus 0 SEEN 09/23/20 23:21 WBC RBC Hgb Hct MCV MCH MCHC RDW Std Deviation RDW Coeff of Claude Plt Count MPV Immature Gran % (Auto) Neut % (Auto) Lymph % (Auto) [place] % (Auto) Eos % (Auto) Baso % (Auto) Absolute Neuts (auto) Absolute Lymphs (auto) Nucleated RBC % Sodium Potassium Chloride Carbon Dioxide Anion Gap BUN Creatinine Estim Creat Clear Calc Est GFR (MDRD) Af Amer Est GFR (MDRD) Non-Af BUN/Creatinine Ratio Glucose Lactic Acid 2.0 Calcium Total Bilirubin AST ALT Alkaline Phosphatase Total Protein Albumin Globulin Albumin/Globulin Ratio Urine Color Urine Clarity Urine pH Ur Specific [place] Urine Protein Urine Glucose (UA) Urine Ketones Urine Occult Blood Urine Nitrite Urine Bilirubin Urine Urobilinogen Ur Leukocyte Esterase Urine RBC Urine WBC Ur Squamous Epith Cells Urine Bacteria Urine Mucus Radiography Diagnostic Testing: No repeat CT performed since recent imaging consistent with bladder infection along with right pyelonephritis Procedures Other Procedures Procedure(s): Suprapubic catheter change --under sterile conditions, old catheter removed and a new sterile catheter was placed. Tolerated well, no complications. Discharge Plan Dx/Rx/DC Orders Clinical Impression: Sepsis due to gram-negative UTI, Pyelonephritis of right kidney, Spina bifida aperta of lumbar spine, Hyperglycemia due to type 2 diabetes mellitus, Failure of outpatient treatment, Intractable pain Disposition Disposition: Acute Care Hospital [facility]
[2020-09-23 23:26] LABS: Mucous, Urine 0 SEEN /hpf (<or=2+)
[2020-09-23] MEDS: Morphine 4 MG/ML Syringe IV (23:31)
[2020-09-23] MEDS: Ondansetron 4 MG/2 ML Vial IV (23:31)
[2020-09-23] MEDS: 0.9% Normal Saline 1,000 ML 150 ML IV (23:31)
[2020-09-23] MEDS: Ciprofloxacin 400 MG/200 ML BAG 200 MG IV (23:31)
[2020-09-23 23:32] LABS: ALB/GLOB Ratio 0.8 RATIO (0.9-2.4); AST(SGOT) 31 U/L (15-37); Alanine Aminotransfer ALT/SGPT 50 U/L (13-56); Albumin, Serum 3.7 g/dL (3.2-5.0); Alkaline Phosphatase 109 U/L (45-117); Anion Gap 7 (5-15); BUN 16 mg/dL (7-18); Calcium,Total 8.8 mg/dL (8.5-10.1); Chloride 103 mmol/L (98-107); Creatinine, Serum 1.14 mg/dL (0.55-1.02); EST Glomerular Filtration Rate 56 mL/min (>60); Est Glom Filt Rate - Afr Amer 68 mL/min (>60); Estimated Creatinine Clearance 52.92 ml/min; Globulin 4.5 g/dL (2.2-4.2); Glucose 340 mg/dL (74-106); Protein, Total 8.2 g/dL (6.4-8.2); Sodium Level 135 mmol/L (136-145)
[2020-09-23 23:35] LABS: Color, Urine Yellow (Yellow); Glucose, Dipstick 1000 mg/dl (Normal); Ketone-Dipstick Negative (Negative); Leukocyte Esterase-Dipstick 500 /ul (Negative); Nitrite-Dipstick Positive (Negative); Occult Blood-Urine 150 /ul (Negative); Protein-Dipstick 100 mg/dl (Negative); Urine Bilirubin Dipstick Negative (Negative); Urine Clarity Cloudy (Clear); Urine Urobilinogen Normal (Normal)
[2020-09-23 23:38] LABS: Absolute Lymphocyte Count 3.65 X10^3/uL (0.83-4.51); Absolute Neutrophil Count 9.1 X10^3/uL (2.0-7.7); Basophil# 0.09 X10^3/uL; Basophil% 0.6 % (0-1); Eosinophil# 0.25 X10^3/uL; Eosinophils% 1.7 % (0-5); Hematocrit 41.4 % (37-47); Hemoglobin 13.8 g/dL (12.0-15.0); Lymphocyte # 3.65 X10^3/ul (0.83-4.51); Mean Corp Hgb Conc 33.3 g/dL (32-36); Mean Corpuscular Hgb 29.9 pg (27.0-32.0); Mean Corpuscular Volume 89.6 fL (81-99); Mean Platelet Vol. 11.6 fl (6.2-12.0); Monocyte# 1.28 X10^3/uL; Monocyte% 8.8 % (0-10); NRBC Flagged by Analyzer 0 % (0-5); Neutrophil % 62.4 % (47-70); Platelet Count 261 K/mm3 (150-450); RBC Distribution Width SD 42.5 fl (35.1-43.9); Red Blood Count 4.62 M/mm3 (4.2-5.4); White Blood Count 14.6 K/mm3 (4.4-11.0)
[2020-09-23 23:42] LABS: Bacteria 1+ /hpf (None Seen); Red Blood Cells-Urine 50-100 SEEN /hpf (0-5); Squamous Epithelial Cells - UA 0-5 SEEN /hpf (5-10); White Blood Cells 25-50 SEEN /hpf (0-5)
[2020-09-24] VITALS (12 sets, daily range): BP systolic 97–113; BP diastolic 45–66; PULSE 60–81; RESP 16–17; TEMP 36.7–36.9; O2SAT 97–98; BMI 40.8
[2020-09-24] MEDS: Insulin Lispro 100 UNIT/ML INSULN.PEN 12 UNIT SC (00:58)
[2020-09-24] MEDS: Morphine 4 MG/ML Syringe IV (01:10)
[2020-09-24] MEDS: Metoclopramide 10 MG/2 ML Vial 5 MG IV (01:10)
--- NOTE | 2020-09-24 02:01 | PCM.HP.STD ---
HPI - General General Date of Admission: 09/24/20 HPI Narrative HEBER BAILON, is a 39 F who with a significant history of type 2 diabetes; spina bifida with complicated neurogenic bladder status post suprapubic catheter who presented to the emergency department with excruciating suprapubic pain that started about 11 days ago. The pain has been persistent. She was at emergency department and her suprapubic catheter was changed. She was placed on cefuroxime . She finished taking the last dose of her cefuroxime and night before this new presentation. Realizing that her pain remained persistent she came to emergency department for further care. Her pain radiates to her bilateral flanks with right flank worse than left flank. She describes her pain as throbbing. She has mild relief with Tylenol at home. Positioning improves or worsens the pain. At the emergency department she was given morphine that helped her pain. Associated with symptoms is nausea and anorexia. She denies fever but reports chills. She reports increased sediment in her Morales catheter requiring multiple flushes. She reports decreased urinary output. She reports foul order of her urine. Of note patient follows up with a local urologist and also a her urologist at [facility]. [facility] Medical History Anxiety and depression Arthritis Cellulitis of left lower extremity Chronic back pain Chronic nausea Constipation Delayed wound healing Diabetes mellitus, type II Diabetic ulcer of left heel with fat layer exposed DJD (degenerative joint disease) of thoracic spine Dysthymic disorder Essential hypertension Hematochezia History of kidney stones History of migraine Hydronephrosis of right kidney Hyperlipidemia Infection of bladder catheter Insomnia Lipomeningocele Lower extremity edema Morbid obesity with BMI of 40.0-44.9, adult Neurogenic bladder Neurogenic bowel Non-compliance Normochromic normocytic anemia Panic attacks PSVT (paroxysmal supraventricular tachycardia) Sepsis Spina bifida aperta of lumbar spine Thyroid cyst Type 2 diabetes mellitus with diabetic polyneuropathy Ulcer of left heel and midfoot with fat layer exposed Uninodular goiter UTI (urinary tract infection) UTI (urinary tract infection) Home Medications furosemide 20 mg PO DAILY@1700 08/28/18 [History Last Taken 02/11/20] furosemide 40 mg PO BREAKFAST 04/05/19 [History Last Taken 02/11/20] insulin glargine 100 unit/mL (3 mL) subcutaneous pen 25 unit SC QHS 11/01/19 [History Last Taken 02/11/20] lisinopril 2.5 mg tablet 2.5 mg PO DAILY 11/01/19 [History Last Taken 02/11/20] oxybutynin chloride 15 mg tablet,extended release 24 hr 15 mg PO DAILY 11/12/19 [History Last Taken 02/11/20] propranolol 10 mg PO BID 01/13/20 [History Last Taken 02/11/20] acetaminophen 1,000 mg PO TID PRN PRN 02/12/20 [History Last Taken 02/12/20] phenazopyridine 200 mg PO BID PRN PRN #10 tab 07/13/20 [Rx Last Taken Unknown] sulfamethoxazole-trimethoprim 1 tab PO BID #20 tab 07/17/20 [Rx Last Taken Unknown] Allergy/AdvReac Type Severity Reaction Status Date / Time mushroom Allergy Anaphylaxis Verified 09/23/20 22:28 peanut Allergy Anaphylaxis Verified 09/23/20 22:28 Gadolinium-MRI Contrast AdvReac Vomiting Verified 09/23/20 22:28 Medium Latex, Natural Rubber AdvReac Rash Verified 09/23/20 22:28 Family History Mother CVA (cerebral vascular accident) Thyroid disorder Diabetes Hypertension Heart disease Hyperlipidemia Myocardial infarction, Onset Age: 54 mother had diabetes Father Cancer skin Grandmother Cancer liver Surgical History history insertion suprapubic catheter History of cholecystectomy History of dilation and curettage History of spinal surgery Hx of foot surgery Hx of ventral hernia repair S/P thyroid biopsy (~11/06/19) Status post gastric surgery Social History Smoking Status: Never smoker alcohol intake: current substance use type: does not use ROS Constitutional Constitutional: Reports anorexia and chills; Denies fever(s) Eyes Eyes: Denies change in vision or double vision ENT HEENT: Denies headache(s) or nasal congestion Cardiovascular Cardiovascular: Denies chest pain or edema Respiratory/Chest Respiratory/Chest: Denies cough or dyspnea Gastrointestinal Gastrointestinal: Reports abdominal pain and nausea Musculoskeletal Musculoskeletal: Denies arthralgias or neck pain Neurologic Neurologic: Denies confusion or dizziness Psychiatric Psychiatric: Denies anxiety or depression Endocrine Endocrinology: Denies change in body appearance or cold intolerance Hematologic/Lymphatic Hematologic/Lymphatic: Denies anemia or lymphadenopathy Vital Signs Vital Signs Vital Signs: 09/23/20 22:25 09/23/20 22:27 09/23/20 23:08 Temperature 97.1 F L 97.6 F L 97.6 F L Temperature Source Temporal Temporal Temporal Pulse Rate 99 87 87 Respiratory Rate 18 20 H 20 H Blood Pressure 150/90 H 132/72 H 132/72 H Blood Pressure Mean 110 92 92 Pulse Ox 97 96 96 Oxygen Delivery Method Room Air Room Air Room Air Physical Exam Const alert and oriented x3 General Appearance: cooperative HEENT normocephalic and head/scalp atraumatic Eyes PERRL and EOMs intact bilaterally Neck no lymphadenopathy and supple Resp normal respiratory effort, no retractions, no use of accessory muscles and clear to auscultation bilaterally Cardio regular rate, regular rhythm, S1 normal heart sound, S2 normal heart sound and no murmurs Peripheral Pulses: pulses 2+ throughout and brachial pulses present GI normal to inspection, nondistended, normoactive bowel sounds, soft to palpation, non-tender and non-distended GI Narrative: Suprapubic catheter in place. Cloudy urine Extremity full ROM Extremity Narrative: amputated left great toe Peripheral Pulses: Yes pulses 2+ throughout and brachial pulses present Skin no rashes or lesions noted and no wounds Neuro oriented x3 Sensorium / Orientation: awake and alert Lab / Micro Data Result Diagrams: 09/23/20 22:55 09/23/20 22:55 Labs: Laboratory Results - last 24 hr 09/23/20 09/23/20 09/23/20 22:55 22:55 23:20 WBC 14.6 H RBC 4.62 Hgb 13.8 Hct 41.4 MCV 89.6 MCH 29.9 MCHC 33.3 RDW Std Deviation 42.5 RDW Coeff of Claude 13.0 Plt Count 261 MPV 11.6 Immature Gran % (Auto) 1.500 H Neut % (Auto) 62.4 Lymph % (Auto) 25.0 [place] % (Auto) 8.8 Eos % (Auto) 1.7 Baso % (Auto) 0.6 Absolute Neuts (auto) 9.1 H Absolute Lymphs (auto) 3.65 Nucleated RBC % 0 Sodium 135 L Potassium 4.0 Chloride 103 Carbon Dioxide 25.0 Anion Gap 7 BUN 16 Creatinine 1.14 H Estim Creat Clear Calc 52.92 Est GFR (MDRD) Af Amer 68 Est GFR (MDRD) Non-Af 56 L BUN/Creatinine Ratio 14.0 Glucose 340 H Lactic Acid Calcium 8.8 Total Bilirubin 0.30 AST 31 ALT 50 Alkaline Phosphatase 109 Total Protein 8.2 Albumin 3.7 Globulin 4.5 H Albumin/Globulin Ratio 0.8 L Urine Color Yellow Urine Clarity Cloudy Urine pH 7.0 Ur Specific [place] 1.010 Urine Protein 100 H Urine Glucose (UA) 1000 H Urine Ketones Negative Urine Occult Blood 150 H Urine Nitrite Positive H Urine Bilirubin Negative Urine Urobilinogen Normal Ur Leukocyte Esterase 500 H Urine RBC 50-100 SEEN Urine WBC 25-50 SEEN Ur Squamous Epith Cells 0-5 SEEN Urine Bacteria 1+ Urine Mucus 0 SEEN 09/23/20 23:21 WBC RBC Hgb Hct MCV MCH MCHC RDW Std Deviation RDW Coeff of Claude Plt Count MPV Immature Gran % (Auto) Neut % (Auto) Lymph % (Auto) [place] % (Auto) Eos % (Auto) Baso % (Auto) Absolute Neuts (auto) Absolute Lymphs (auto) Nucleated RBC % Sodium Potassium Chloride Carbon Dioxide Anion Gap BUN Creatinine Estim Creat Clear Calc Est GFR (MDRD) Af Amer Est GFR (MDRD) Non-Af BUN/Creatinine Ratio Glucose Lactic Acid 2.0 Calcium Total Bilirubin AST ALT Alkaline Phosphatase Total Protein Albumin Globulin Albumin/Globulin Ratio Urine Color Urine Clarity Urine pH Ur Specific [place] Urine Protein Urine Glucose (UA) Urine Ketones Urine Occult Blood Urine Nitrite Urine Bilirubin Urine Urobilinogen Ur Leukocyte Esterase Urine RBC Urine WBC Ur Squamous Epith Cells Urine Bacteria Urine Mucus Assessment & Plan Assessment/Plan (1) Severe sepsis: Status: Acute Code(s): A41.9 - Sepsis, unspecified organism; R65.20 - Severe sepsis without septic shock (2) Pyelonephritis of right kidney: Status: Acute Code(s): N12 - Tubulo-interstitial nephritis, not specified as acute or chronic (3) Hyperglycemia due to type 2 diabetes mellitus: Status: Acute Code(s): E11.65 - Type 2 diabetes mellitus with hyperglycemia Qualifiers: Diabetes mellitus medical terminologist insulin use: with alf use Qualified Code(s): E11.65 - Type 2 diabetes mellitus with hyperglycemia; Z79.4 - termite 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 One documented heart rate of more than 90; white count of 14.6 with bandemia. Review of emergency department labs showed abnormal urinalysis. Discussed with sc department doctor to change Morales catheter. Review of outpatient labs showed urine culture positive for providentia rettgeri and Pseudomonas aeruginosa. Both organisms sensitive to ciprofloxacin. Ciprofloxacin IV given at the emergency department and continued. Trend lactic acid. No urine culture obtained before ciprofloxacin given. Low yield at this time to order a urine culture. Diabetes mellitus Patient with hyperglycemia on presentation Basal insulin continued. One-time dose of fast acting insulin given subcutaneously at emergency department. Accu-Chek with correction scale insulin ordered. Morbid obesity: BMI 43.0 kg/m?. Complicates care. Left eye medication recommended. History of bilateral leg swelling: Lasix continued. Of note patient received IV fluids at the emergency department. Inpatient E&M: [id number] [place] [id number]
[2020-09-24] MEDS: Acetaminophen 500 MG Tablet 1000 MG PO ×2 (03:45→19:24)
[2020-09-24 03:46] LABS: Reflex Lactate? Y
[2020-09-24 04:59] LABS: Absolute Lymphocyte Count 3.53 X10^3/uL (0.83-4.51); Absolute Neutrophil Count 7.8 X10^3/uL (2.0-7.7); Basophil# 0.09 X10^3/uL; Basophil% 0.7 % (0-1); Eosinophil# 0.22 X10^3/uL; Eosinophils% 1.7 % (0-5); Hematocrit 37.6 % (37-47); Hemoglobin 12.2 g/dL (12.0-15.0); Lymphocyte # 3.53 X10^3/ul (0.83-4.51); Mean Corp Hgb Conc 32.4 g/dL (32-36); Mean Corpuscular Hgb 30.3 pg (27.0-32.0); Mean Corpuscular Volume 93.3 fL (81-99); Mean Platelet Vol. 10.8 fl (6.2-12.0); Monocyte% 9.9 % (0-10); NRBC Flagged by Analyzer 0 % (0-5); Neutrophil # 7.83 X10^3/uL (2.7-7.7); Neutrophil % 59.9 % (47-70); Platelet Count 197 K/mm3 (150-450); RBC Distribution Width CV 13.1 % (11.6-14.6); RBC Distribution Width SD 44.9 fl (35.1-43.9); Red Blood Count 4.03 M/mm3 (4.2-5.4); White Blood Count 13.1 K/mm3 (4.4-11.0)
[2020-09-24 05:12] LABS: Anion Gap 4 (5-15); BUN 14 mg/dL (7-18); BUN/Creat Ratio 16.8 RATIO (10-20); Calcium,Total 8.1 mg/dL (8.5-10.1); Chloride 107 mmol/L (98-107); Creatinine, Serum 0.83 mg/dL (0.55-1.02); EST Glomerular Filtration Rate 81 mL/min (>60); Est Glom Filt Rate - Afr Amer 98 mL/min (>60); Estimated Creatinine Clearance 72.69 ml/min; Glucose 230 mg/dL (74-106); Potassium 3.7 mmol/L (3.5-5.1); Sodium Level 134 mmol/L (136-145)
[2020-09-24 05:21] LABS: Lactic Acid 1.6 mmol/L (0.4-1.9)
[2020-09-24] MEDS: Insulin Lispro 100 UNIT/ML INSULN.PEN SC ×4 (06:22→22:16)
[2020-09-24 06:55] LABS: Bedside Glucose 216 mg/dL (70-110)
--- NOTE | 2020-09-24 09:09 | PCM.PN.HOSP ---
Documented by User: Tevin SAWANT 09/24/20 09:24 Subjective Subjective: Patient is a 39-year-old female currently resting in bed, alert and oriented x3. Patient reports mild back pain about the kidneys that she rates at a 5 out of 10. Objective Data Objective Data Vital Signs: Vital Signs Temp Pulse Resp BP Pulse Ox 98.4 F 61 17 113/45 L 98 09/24/20 03:05 09/24/20 07:04 09/24/20 03:05 09/24/20 03:05 09/24/20 07:21 Oxygen Delivery Method Room Air Weight: 223 lb Body Mass Index (BMI) 40.8 Finger Stick Blood Glucose 143 Intake & Output: Intake and Output for Last 24 Hours 09/22/20 09/23/20 09/24/20 23:59 23:59 23:59 Intake Total 1500 / 1500 Output Total 150 / 150 Balance 1350 / 1350 Lab / Micro Data Result Diagrams: 09/24/20 04:44 09/24/20 04:44 Labs: Laboratory Results - last 24 hr 09/23/20 09/23/20 09/23/20 22:55 22:55 23:20 WBC 14.6 H RBC 4.62 Hgb 13.8 Hct 41.4 MCV 89.6 MCH 29.9 MCHC 33.3 RDW Std Deviation 42.5 RDW Coeff of Claude 13.0 Plt Count 261 MPV 11.6 Immature Gran % (Auto) 1.500 H Neut % (Auto) 62.4 Lymph % (Auto) 25.0 [place] % (Auto) 8.8 Eos % (Auto) 1.7 Baso % (Auto) 0.6 Absolute Neuts (auto) 9.1 H Absolute Lymphs (auto) 3.65 Nucleated RBC % 0 Sodium 135 L Potassium 4.0 Chloride 103 Carbon Dioxide 25.0 Anion Gap 7 BUN 16 Creatinine 1.14 H Estim Creat Clear Calc 52.92 Est GFR (MDRD) Af Amer 68 Est GFR (MDRD) Non-Af 56 L BUN/Creatinine Ratio 14.0 Glucose 340 H Lactic Acid Calcium 8.8 Total Bilirubin 0.30 AST 31 ALT 50 Alkaline Phosphatase 109 Total Protein 8.2 Albumin 3.7 Globulin 4.5 H Albumin/Globulin Ratio 0.8 L Urine Color Yellow Urine Clarity Cloudy Urine pH 7.0 Ur Specific [place] 1.010 Urine Protein 100 H Urine Glucose (UA) 1000 H Urine Ketones Negative Urine Occult Blood 150 H Urine Nitrite Positive H Urine Bilirubin Negative Urine Urobilinogen Normal Ur Leukocyte Esterase 500 H Urine RBC 50-100 SEEN Urine WBC 25-50 SEEN Ur Squamous Epith Cells 0-5 SEEN Urine Bacteria 1+ Urine Mucus 0 SEEN POC Glucose 09/23/20 09/24/20 09/24/20 23:21 04:44 04:44 WBC 13.1 H RBC 4.03 L Hgb 12.2 Hct 37.6 MCV 93.3 MCH 30.3 MCHC 32.4 RDW Std Deviation 44.9 H RDW Coeff of Claude 13.1 Plt Count 197 MPV 10.8 Immature Gran % (Auto) 0.800 Neut % (Auto) 59.9 Lymph % (Auto) 27.0 [place] % (Auto) 9.9 Eos % (Auto) 1.7 Baso % (Auto) 0.7 Absolute Neuts (auto) 7.8 H Absolute Lymphs (auto) 3.53 Nucleated RBC % 0 Sodium 134 L Potassium 3.7 Chloride 107 Carbon Dioxide 23.0 Anion Gap 4 L BUN 14 Creatinine 0.83 Estim Creat Clear Calc 72.69 Est GFR (MDRD) Af Amer 98 Est GFR (MDRD) Non-Af 81 BUN/Creatinine Ratio 16.8 Glucose 230 H Lactic Acid 2.0 Calcium 8.1 L Total Bilirubin AST ALT Alkaline Phosphatase Total Protein Albumin Globulin Albumin/Globulin Ratio Urine Color Urine Clarity Urine pH Ur Specific [place] Urine Protein Urine Glucose (UA) Urine Ketones Urine Occult Blood Urine Nitrite Urine Bilirubin Urine Urobilinogen Ur Leukocyte Esterase Urine RBC Urine WBC Ur Squamous Epith Cells Urine Bacteria Urine Mucus POC Glucose 09/24/20 09/24/20 04:44 06:20 WBC RBC Hgb Hct MCV MCH MCHC RDW Std Deviation RDW Coeff of Claude Plt Count MPV Immature Gran % (Auto) Neut % (Auto) Lymph % (Auto) [place] % (Auto) Eos % (Auto) Baso % (Auto) Absolute Neuts (auto) Absolute Lymphs (auto) Nucleated RBC % Sodium Potassium Chloride Carbon Dioxide Anion Gap BUN Creatinine Estim Creat Clear Calc Est GFR (MDRD) Af Amer Est GFR (MDRD) Non-Af BUN/Creatinine Ratio Glucose Lactic Acid 1.6 Calcium Total Bilirubin AST ALT Alkaline Phosphatase Total Protein Albumin Globulin Albumin/Globulin Ratio Urine Color Urine Clarity Urine pH Ur Specific [place] Urine Protein Urine Glucose (UA) Urine Ketones Urine Occult Blood Urine Nitrite Urine Bilirubin Urine Urobilinogen Ur Leukocyte Esterase Urine RBC Urine WBC Ur Squamous Epith Cells Urine Bacteria Urine Mucus POC Glucose 216 H Physical Exam Const alert, oriented x3 and no apparent distress General Appearance: cooperative HEENT normocephalic, head/scalp atraumatic and hearing grossly normal bilaterally Eyes EOMs intact bilaterally Neck full ROM, no lymphadenopathy, no JVD and thyroid normal Lymph Lymphatic: no lymphadenopathy noted and no lymphedema noted Chest inspection of chest normal and palpation of chest normal Resp normal respiratory effort, normal air movement, no retractions and no use of accessory muscles Cardio regular rate, regular rhythm, no murmurs and no JVD Peripheral Pulses: pulses 2+ throughout and brachial pulses present GI normal to inspection, nondistended, normoactive bowel sounds GI Narrative: Suprapubic catheter in place. Cloudy urine Bladder / Kidney Exam: catheter in place and CVA tenderness Extremity normal to inspection, full ROM, normal capillary refill, no joint enlargement and no pedal edema Extremity Narrative: amputated left great toe Peripheral Pulses: Yes pulses 2+ throughout and brachial pulses present Skin no rashes or lesions noted and no wounds Neuro oriented x3 Sensorium / Orientation: awake and alert Cranial Nerves: CN normal except as noted Psych mental status grossly normal, thought process normal and affect normal Assessment & Plan Assessment/Plan (1) Severe sepsis: Status: Acute Code(s): A41.9 - Sepsis, unspecified organism; R65.20 - Severe sepsis without septic shock (2) Pyelonephritis of right kidney: Status: Acute Code(s): N12 - Tubulo-interstitial nephritis, not specified as acute or chronic (3) Hyperglycemia due to type 2 diabetes mellitus: Status: Acute Code(s): E11.65 - Type 2 diabetes mellitus with hyperglycemia Qualifiers: Diabetes mellitus spot sprayer insulin use: with senior care use Qualified Code(s): E11.65 - Type 2 diabetes mellitus with hyperglycemia; Z79.4 - leather repairer (current) use of insulin (4) Morbid obesity with BMI of 40.0-44.9, adult: Status: Chronic Code(s): E66.01 - Morbid (severe) obesity due to excess calories; Z68.41 - Body mass index [BMI]40.0-44.9, adult (5) Sepsis due to gram-negative UTI: Status: Acute Code(s): A41.50 - Gram-negative sepsis, unspecified; N39.0 - Urinary tract infection, site not specified Plan: 1) Severe sepsis/pyonephritis of right kidney/sepsis due to gram-negative UTI Indwelling catheter prior to admission was believed to be contributing to patient UTI, Morales catheter replaced in the ED. Review of outpatient labs showed urine culture positive for providentia rettgeri and Pseudomonas aeruginosa. Both organisms sensitive to ciprofloxacin. Ciprofloxacin IV given at the emergency department and continued. Lactic acid WNL. Urine culture pending. 2) Diabetes mellitus Patient with hyperglycemia on presentation Basal insulin continued. Continue Accu-Chek with correction scale insulin. Hemoglobin A1c ordered. 3) Morbid obesity: BMI 43.0 kg/m?. Complicates care. Left eye medication recommended. History of bilateral leg swelling: Lasix continued. DVT prophylaxis -Lovenox SC Patient seen by Tevin Harris PA-C, under the supervision of Dr. Meza. Documented by User: Dr. Sita Meza MD 09/24/20 15:01 Objective Data Lab / Micro Data Result Diagrams: 09/24/20 04:44 09/24/20 04:44 Assessment & Plan Assessment/Plan (1) GILBERT (acute kidney injury): Status: Acute Code(s): N17.9 - Acute kidney failure, unspecified This patient was seen in conjunction with SAVANA Solitario. I have independently interviewed and examined the patient and reviewed pertinent historical, laboratory, and other data. Please refer to SAVANA Solitario's note for his patient's presentation, findings, and recommendations. I have reviewed and his note and concur with his documentation Patient was seen and examined. At the time of being seen, her suprapubic catheter was clogged. This will be flushed by nursing. Denied any fever or chills. Physical Exam: Gen: Looks in some discomfort, morbidly obese, not pale, not jaundiced CVS:HS I +II, regular, no murmurs RESP: Diminished at lung bases GI: BS present and normal, soft, nontender, no palpable organs EXT:No edema ASSESSMENT: 1. Severe sepsis secondary to acute GNR complicated UTI secondary to indwelling suprapubic catheter 2. Acute kidney injury, prerenal likely secondary to dehydration 3. Hyperglycemia Plan: Continue on IV Cipro Increase Lantus to 28 units QHS, continue with insulin sliding scale with blood glucose checks Follow-up on urine cultures and speciation Inpatient E&M: 05918 Subs Hosp L2
[2020-09-24] MEDS: Ciprofloxacin 400 MG/200 ML BAG 200 MG IV ×2 (09:42→22:14)
[2020-09-24] MEDS: Furosemide 40 MG Tablet PO (09:42)
[2020-09-24] MEDS: Tolterodine Tartrate 4 MG CAP.SA PO (09:42)
[2020-09-24] MEDS: Lisinopril 2.5 MG Tablet PO (09:43)
[2020-09-24] MEDS: Morphine 2 MG/ML Syringe IV (11:54)
[2020-09-24 12:15] LABS: Bedside Glucose 213 mg/dL (70-110)
--- NOTE | 2020-09-24 12:18 | CASEMGMT ---
VERNON BENITEZ Assessment: Face to Face with pt for initial transition planning/care coordination assessment. RN EMMANUEL introduced self and role at [facility], pt voices understanding and consents to assessment. Pt is A/O x4 and answers all questions appropriately at this time. Pt sitting up in bed in no distress. Care providers, pharmacy, and demographics verified/updated. Admitting Dx:severe sepsis from pyelonephritis PCP: Vazquez Specialists: Choco, neurosurgeon; Santi, urology; Joselo, general surgery; Yogi, neuro. Cory Box changes her s/p cath monthly. [facility]erred [facility] Prescription Benefit: yes LW/HPOA: Pt does not have a LW/DPOA and denies need for info on AD. LNOK: Jay Paiz, ; Kimberley Peñaloza, mother in law Living Arrangements: Pt lives in a two story house with 1 step to enter with her , father and step daughter. Pt states assists with ADL's as needed. Denies concerns at home. Transportation: Pt provides transportation. Denies concerns with transportation. DME/HHC/SNF: Pt has the following DME: motorized w/c, cane, walker, shower chair, rollator and w/c. Pt has had previous HHC with [facility]. She has stayed at [facility]. Pt states no concerns with going home at time of dc. Pt states no further concerns/needs. CM to follow. Advised pt to ask CM if any further question/concerns/needs arise, voices understanding. Pt Goal: Home Plan: Home with family support Pt screened with [facility] Palliative Care screening tool, pt did not meet criteria.
[2020-09-24] MEDS: Furosemide 20 MG Tablet PO (16:44)
[2020-09-24 16:50] LABS: Bedside Glucose 221 mg/dL (70-110)
[2020-09-24 22:30] LABS: Bedside Glucose 227 mg/dL (70-110)
[2020-09-25] VITALS (7 sets, daily range): BP systolic 103–109; BP diastolic 59–67; PULSE 59–78; RESP 16–18; TEMP 36.1–37.1; O2SAT 96–97
[2020-09-25] MEDS: Insulin Lispro 100 UNIT/ML INSULN.PEN SC (06:10)
[2020-09-25 06:15] LABS: Bedside Glucose 157 mg/dL (70-110)
[2020-09-25 06:17] LABS: Absolute Lymphocyte Count 3.51 X10^3/uL (0.83-4.51); Absolute Neutrophil Count 5.9 X10^3/uL (2.0-7.7); Basophil# 0.11 X10^3/uL; Eosinophil# 0.24 X10^3/uL; Eosinophils% 2.2 % (0-5); Hematocrit 39.5 % (37-47); Lymphocyte # 3.51 X10^3/ul (0.83-4.51); Lymphocyte % 31.7 % (19-41); Mean Corp Hgb Conc 32.9 g/dL (32-36); Mean Corpuscular Hgb 30.2 pg (27.0-32.0); Mean Corpuscular Volume 91.6 fL (81-99); Mean Platelet Vol. 11.6 fl (6.2-12.0); Monocyte# 1.13 X10^3/uL; Monocyte% 10.2 % (0-10); NRBC Flagged by Analyzer 0 % (0-5); Neutrophil # 5.91 X10^3/uL (2.7-7.7); Neutrophil % 53.4 % (47-70); Platelet Count 241 K/mm3 (150-450); RBC Distribution Width SD 43.8 fl (35.1-43.9); Red Blood Count 4.31 M/mm3 (4.2-5.4); White Blood Count 11.1 K/mm3 (4.4-11.0)
[2020-09-25 06:45] LABS: Anion Gap 7 (5-15); BUN 14 mg/dL (7-18); BUN/Creat Ratio 16.8 RATIO (10-20); Calcium,Total 8.8 mg/dL (8.5-10.1); Chloride 101 mmol/L (98-107); Creatinine, Serum 0.83 mg/dL (0.55-1.02); EST Glomerular Filtration Rate 81 mL/min (>60); Est Glom Filt Rate - Afr Amer 98 mL/min (>60); Estimated Creatinine Clearance 72.69 ml/min; Glucose 193 mg/dL (74-106); Potassium 3.4 mmol/L (3.5-5.1); Sodium Level 135 mmol/L (136-145)
[2020-09-25] MEDS: Lisinopril 2.5 MG Tablet PO (09:39)
[2020-09-25] MEDS: Potassium Chloride Oral Tablet 20 MEQ 40 MEQ PO (09:39)
[2020-09-25] MEDS: Furosemide 40 MG Tablet PO (09:39)
[2020-09-25] MEDS: Ciprofloxacin 400 MG/200 ML BAG 200 MG IV (09:39)
[2020-09-25] MEDS: Tolterodine Tartrate 4 MG CAP.SA PO (09:39)
--- NOTE | 2020-09-25 10:48 | PCM.DC ---
Discharge Instructions Outpatient Procedure Reason For Visit: SEVERE SEPSIS FROM PYELONEPHRITIS Diet Discharge Diet: No restrictions Activity Discharge Activity: Return to Normal Activity Follow Up Care Please Follow Up With: Primary care provider When: Within the next 2 weeks Test Results: Test results from this visit will be discussed in further detail at your follow-up appointment, if applicable. Discharge Plan Admission Admit Date/Time: 09/24/20 01:38 Primary Reason for Your Visit: Sepsis secondary to Pyelonephritis Attending Provider: Sita Meza Primary Care Provider: Will Shukla Discharge Orders/Prescriptions Prescriptions: New ciprofloxacin HCl [Cipro] 500 mg tablet 500 mg PO BID Qty: 16 RF: 0 Continued Lantus Solostar U-100 Insulin 100 unit/mL (3 mL) insulin pen 25 unit SC QHS RF: 0 lisinopril 2.5 mg tablet 2.5 mg PO DAILY RF: 0 furosemide 20 MG tablet 20 mg PO DAILY@1700 RF: 0 furosemide 40 MG tablet 40 mg PO BREAKFAST RF: 0 oxybutynin chloride 15 mg tablet extended release 24hr 15 mg PO DAILY RF: 0 propranolol 10 MG tablet 10 mg PO BID RF: 0 acetaminophen 500 MG tablet 1,000 mg PO TID PRN PRN (Reason: Pain Or Fever) RF: 0 phenazopyridine 200 MG tablet 200 mg PO BID PRN PRN (Reason: Pain) Qty: 10 RF: 0 sulfamethoxazole-trimethoprim 1 TABLET tablet 1 tab PO BID Qty: 20 RF: 0 Referrals: Will Shukla MD [Primary Care Provider] - Disposition Patient Disposition: Home, self care
--- NOTE | 2020-09-25 11:10 | PHA.DC.MC ---
Pharmacy Service has performed discharge medication reconciliation and counseling for this patient. The patient was counseled on the following discharge medications and changes in medications for homegoing were reviewed. 1. CIPROFLOXACIN The Reason for Use, instructions for use, and potential side effects were reviewed for all new medications. The patient's questions regarding all of their medications were answered. The patient was able to verbally demonstrate an understanding of their discharge medications. Home Medications furosemide 20 mg PO DAILY@1700 08/28/18 furosemide 40 mg PO BREAKFAST 04/05/19 insulin glargine 100 unit/mL (3 mL) subcutaneous pen 25 unit SC QHS 11/01/19 lisinopril 2.5 mg tablet 2.5 mg PO DAILY 11/01/19 oxybutynin chloride 15 mg tablet,extended release 24 hr 15 mg PO DAILY 11/12/19 propranolol 10 mg PO BID 01/13/20 acetaminophen 1,000 mg PO TID PRN PRN 02/12/20 phenazopyridine 200 mg PO BID PRN PRN #10 tab 07/13/20 sulfamethoxazole-trimethoprim 1 tab PO BID #20 tab 07/17/20 ciprofloxacin HCl [Cipro] 500 mg PO BID #16 tab 09/25/20 The patient's discharge medication list was reviewed for discrepancies and discrepancies were resolved.
--- NOTE | 2020-09-25 11:14 | PCM.DC.SUM ---
Documented by User: Tevin SAWANT 09/25/20 11:31 Providers Date of Admission: 09/24/20 Primary Care Physician: Dr. Will Shukla MD Reason For Visit: SEVERE SEPSIS FROM PYELONEPHRITIS Diagnosis Discharge Diagnosis (1) GILBERT (acute kidney injury): Status: Resolved Code(s): N17.9 - Acute kidney failure, unspecified Medications at Discharge Home Medications furosemide 20 mg PO DAILY@1700 08/28/18 furosemide 40 mg PO BREAKFAST 04/05/19 insulin glargine 100 unit/mL (3 mL) subcutaneous pen 25 unit SC QHS 11/01/19 lisinopril 2.5 mg tablet 2.5 mg PO DAILY 11/01/19 oxybutynin chloride 15 mg tablet,extended release 24 hr 15 mg PO DAILY 11/12/19 propranolol 10 mg PO BID 01/13/20 acetaminophen 1,000 mg PO TID PRN PRN 02/12/20 phenazopyridine 200 mg PO BID PRN PRN #10 tab 07/13/20 sulfamethoxazole-trimethoprim 1 tab PO BID #20 tab 07/17/20 ciprofloxacin HCl [Cipro] 500 mg PO BID #16 tab 09/25/20 Hospital Course Summary of Care Provided Minutes Spent on Discharge: 35 Hospital Course: Patient is a 39-year-old female who was admitted to [facility] on 09/23/2020 for severe sepsis secondary to pyelonephritis due to gram-negative UTI. On my examination patient reported feeling much improved from admission and reports only mild pain about the flanks. Patient denies chest pain, shortness of breath, palpitations, fever, chills, N/V/D. Urine culture demonstrates gram-negative rods. White blood cell count continues to trend down from admission and is currently 11.1. Lactic acid WNL. Vital signs have remained stable throughout admission and patient is afebrile. Patient believes she is strong enough to go home on a oral antibiotic regimen. Patient will be discharged today. 1) Severe sepsis/pyonephritis of right kidney/sepsis due to gram-negative UTI As above. Plan; ciprofloxacin 500 mg p.o. twice daily x8 days initiated on discharge. 2) Hyperglycemia secondary to poorly controlled diabetes mellitus Continue home insulin regimen. Follow-up with primary care provider within the next 2 weeks. 3) Morbid obesity: BMI 43.0 kg/m?. Complicates care. Therapeutic lifestyle changes recommended. 4) GILBERT, prerenal, secondary to dehydration. Resolved, creatinine 0.83. Patient seen by Tevin Harris PA-C, under the supervision of Dr. Meza. Physical Exam Const alert, oriented x3 and no apparent distress HEENT normocephalic, head/scalp atraumatic and hearing grossly normal bilaterally Eyes EOMs intact bilaterally Neck no lymphadenopathy, supple and no JVD Resp normal respiratory effort, no retractions and no use of accessory muscles Cardio regular rate, regular rhythm, no murmurs, no rub and no JVD GI normal to inspection, nondistended, normoactive bowel sounds, soft to palpation, non-tender and non-distended Extremity normal to inspection Skin no rashes or lesions noted, no wounds and no jaundice Neuro CN's II-XII intact bilaterally Psych affect normal ABG / Lab / Microbiology Data Result Diagrams: 09/25/20 04:40 09/25/20 04:40 Laboratory: Laboratory Results - last 24 hr 09/24/20 09/24/20 09/24/20 12:06 16:41 22:13 WBC RBC Hgb Hct MCV MCH MCHC RDW Std Deviation RDW Coeff of Claude Plt Count MPV Immature Gran % (Auto) Neut % (Auto) Lymph % (Auto) [place] % (Auto) Eos % (Auto) Baso % (Auto) Absolute Neuts (auto) Absolute Lymphs (auto) Nucleated RBC % Sodium Potassium Chloride Carbon Dioxide Anion Gap BUN Creatinine Estim Creat Clear Calc Est GFR (MDRD) Af Amer Est GFR (MDRD) Non-Af BUN/Creatinine Ratio Glucose Calcium POC Glucose 213 H 221 H 227 H 09/25/20 09/25/20 09/25/20 04:40 04:40 06:08 WBC 11.1 H RBC 4.31 Hgb 13.0 Hct 39.5 MCV 91.6 MCH 30.2 MCHC 32.9 RDW Std Deviation 43.8 RDW Coeff of Claude 13.0 Plt Count 241 MPV 11.6 Immature Gran % (Auto) 1.500 H Neut % (Auto) 53.4 Lymph % (Auto) 31.7 [place] % (Auto) 10.2 H Eos % (Auto) 2.2 Baso % (Auto) 1.0 Absolute Neuts (auto) 5.9 Absolute Lymphs (auto) 3.51 Nucleated RBC % 0 Sodium 135 L Potassium 3.4 L Chloride 101 Carbon Dioxide 27.0 Anion Gap 7 BUN 14 Creatinine 0.83 Estim Creat Clear Calc 72.69 Est GFR (MDRD) Af Amer 98 Est GFR (MDRD) Non-Af 81 BUN/Creatinine Ratio 16.8 Glucose 193 H Calcium 8.8 POC Glucose 157 H Microbiology: Microbiology 09/23/20 23:20 Urine Culture - Preliminary Urine, Clean Catch Gram negative sue Microbiology 09/23/20 23:20 Urine, Clean Catch Urine Culture - Preliminary Gram negative sue D/C Instructions Discharge Diet: No restrictions Discharge Activity: Return to Normal Activity Please Follow Up With: Primary care provider When: Within the next 2 weeks Meaningful Use Info Meaningful Use Diagnoses (Choose all that apply): None applicable Discharge Plan Admission Admit Date/Time: 09/24/20 01:38 Primary Reason for Your Visit: Sepsis secondary to Pyelonephritis Attending Provider: Sita Meza Primary Care Provider: Will Shukla Discharge Orders/Prescriptions Prescriptions: New ciprofloxacin HCl [Cipro] 500 mg tablet 500 mg PO BID Qty: 16 RF: 0 Continued Lantus Solostar U-100 Insulin 100 unit/mL (3 mL) insulin pen 25 unit SC QHS RF: 0 lisinopril 2.5 mg tablet 2.5 mg PO DAILY RF: 0 furosemide 20 MG tablet 20 mg PO DAILY@1700 RF: 0 furosemide 40 MG tablet 40 mg PO BREAKFAST RF: 0 oxybutynin chloride 15 mg tablet extended release 24hr 15 mg PO DAILY RF: 0 propranolol 10 MG tablet 10 mg PO BID RF: 0 acetaminophen 500 MG tablet 1,000 mg PO TID PRN PRN (Reason: Pain Or Fever) RF: 0 phenazopyridine 200 MG tablet 200 mg PO BID PRN PRN (Reason: Pain) Qty: 10 RF: 0 sulfamethoxazole-trimethoprim 1 TABLET tablet 1 tab PO BID Qty: 20 RF: 0 Referrals: Will Shukla MD [Primary Care Provider] - 10/02/20 11:00 am (Your hospital follow up will be with Dr. Mendoza) Disposition Patient Disposition: Home, self care Documented by User: Dr. Sita Meza MD 09/26/20 19:24 Providers Date of Admission: 09/24/20 Reason For Visit: SEVERE SEPSIS FROM PYELONEPHRITIS Diagnosis Discharge Diagnosis (1) GILBERT (acute kidney injury): Status: Resolved Code(s): N17.9 - Acute kidney failure, unspecified (2) Severe sepsis: Status: Resolved Code(s): A41.9 - Sepsis, unspecified organism; R65.20 - Severe sepsis without septic shock (3) Pyelonephritis of right kidney: Status: Acute Code(s): N12 - Tubulo-interstitial nephritis, not specified as acute or chronic (4) Hyperglycemia due to type 2 diabetes mellitus: Status: Acute Code(s): E11.65 - Type 2 diabetes mellitus with hyperglycemia Qualifiers: Diabetes mellitus snf insulin use: with technician terminal and repeater use Qualified Code(s): E11.65 - Type 2 diabetes mellitus with hyperglycemia; Z79.4 - FPC (current) use of insulin (5) Morbid obesity with BMI of 40.0-44.9, adult: Status: Chronic Code(s): E66.01 - Morbid (severe) obesity due to excess calories; Z68.41 - Body mass index [BMI]40.0-44.9, adult (6) Hypokalemia: Status: Acute Code(s): E87.6 - Hypokalemia Medications at Discharge Home Medications furosemide 20 mg PO DAILY@1700 08/28/18 furosemide 40 mg PO BREAKFAST 04/05/19 insulin glargine 100 unit/mL (3 mL) subcutaneous pen 25 unit SC QHS 11/01/19 lisinopril 2.5 mg tablet 2.5 mg PO DAILY 11/01/19 oxybutynin chloride 15 mg tablet,extended release 24 hr 15 mg PO DAILY 11/12/19 propranolol 10 mg PO BID 01/13/20 acetaminophen 1,000 mg PO TID PRN PRN 02/12/20 phenazopyridine 200 mg PO BID PRN PRN #10 tab 07/13/20 sulfamethoxazole-trimethoprim 1 tab PO BID #20 tab 02/19/21 ciprofloxacin HCl [Cipro] 500 mg PO BID #16 tab 09/25/20 ABG / Lab / Microbiology Data Result Diagrams: 09/25/20 04:40 09/25/20 04:40 Discharge Plan Admission Admit Date/Time: 09/24/20 01:38 Primary Reason for Your Visit: Sepsis secondary to Pyelonephritis Attending Provider: Sita Meza Primary Care Provider: Will Shukla Discharge Orders/Prescriptions Prescriptions: New ciprofloxacin HCl [Cipro] 500 mg tablet 500 mg PO BID Qty: 16 RF: 0 Continued Lantus Solostar U-100 Insulin 100 unit/mL (3 mL) insulin pen 25 unit SC QHS RF: 0 lisinopril 2.5 mg tablet 2.5 mg PO DAILY RF: 0 furosemide 20 MG tablet 20 mg PO DAILY@1700 RF: 0 furosemide 40 MG tablet 40 mg PO BREAKFAST RF: 0 oxybutynin chloride 15 mg tablet extended release 24hr 15 mg PO DAILY RF: 0 propranolol 10 MG tablet 10 mg PO BID RF: 0 acetaminophen 500 MG tablet 1,000 mg PO TID PRN PRN (Reason: Pain Or Fever) RF: 0 phenazopyridine 200 MG tablet 200 mg PO BID PRN PRN (Reason: Pain) Qty: 10 RF: 0 sulfamethoxazole-trimethoprim 1 TABLET tablet 1 tab PO BID Qty: 20 RF: 0 Referrals: Will Shukla MD [Primary Care Provider] - 10/02/20 11:00 am (Your hospital follow up will be with Dr. Mendoza) Disposition Patient Disposition: Home, self care Addendum Addendum: This patient was seen in conjunction with SAVANA Solitario. I have independently interviewed and examined the patient and reviewed pertinent historical, laboratory, and other data. Please refer to SAVANA Solitario's note for his patient's presentation, findings, and recommendations. I have reviewed and his note and concur with his documentation 39-year-old female with past medical history of type II DM, spina bifida complicated with neurogenic bladder status post suprapubic catheter who presented with excruciating suprapubic pain ongoing for 11 days. Suprapubic catheter was changed in the emergency room. Her presentation was consistent with severe sepsis. She was admitted to the telemetry floor and continued on IV antibiotics. Her urine cultures grew Pseudomonas that was pansensitive. She was maintained on IV Cipro and was discharged to complete 10 days of Cipro. On the day of discharge, patient was seen and examined. Denied any new complaint. No fevers or chills. Physical Exam: Gen: Comfortable, morbidly obese, not pale, not jaundiced CVS:HS I +II, regular, no murmurs RESP: CTA GI: BS present and normal, soft, nontender, no palpable organs EXT:No edema Visit Charges Inpatient E&M: 59801 Disch Hosp
[2020-09-25] MEDS: Ciprofloxacin 500 MG Tablet PO (11:30)
[2020-09-25] MEDS: 0.9% Saline Lock 10 ML Syringe IV (11:30)
--- NOTE | 2020-09-28 14:07 | CASEMGMT ---
VERNON BENITEZ Discharge Follow Up Phone Call: CHLOE: 12 Strata: 3 Call Date: 09/28/20 Discharge Date: 09/25/20 Time of Call:1408 Duration:3 min Admitting Dx: UTI VERNON BENITEZ completed follow up phone call after recent hospitalization. Pt states she is doing well. She was able to olive picker her antibiotic without difficulty. Pt denies questions regarding dc instructions or medications. Pt has a follow up appt with her PCP.
== END 2020-09-25 11:53 | disposition home or self-care (01) | DRG 698 ==
LOC: ED 09-24 01:11 → PCU 09-24 01:42
PROVIDERS: Physician Assistant; Admitting Provider Hospitalist; Emergency Provider Emergency Medicine; PCP Family Medicine; Visit Provider Internal Medicine
DX: T83.510A Infection and inflammatory reaction due to cystostomy catheter, initial encounter (principal); R65.20 Severe sepsis without septic shock; A41.9 Sepsis, unspecified organism; L97.422 Non-pressure chronic ulcer of left heel and midfoot with fat layer exposed; N17.9 Acute kidney failure, unspecified; Z68.41 Body mass index [BMI] 40.0-44.9, adult; N12 Tubulo-interstitial nephritis, not specified as acute or chronic; N13.9 Obstructive and reflux uropathy, unspecified; Q05.7 Lumbar spina bifida without hydrocephalus; E66.01 Morbid (severe) obesity due to excess calories; Y84.6 Urinary catheterization as the cause of abnormal reaction of the patient, or of later complication, without mention of misadventure at the time of the procedure; E87.6 Hypokalemia; E78.5 Hyperlipidemia, unspecified; G89.29 Other chronic pain; F34.1 Dysthymic disorder; E86.0 Dehydration; E11.42 Type 2 diabetes mellitus with diabetic polyneuropathy; E11.65 Type 2 diabetes mellitus with hyperglycemia; Z79.4 Long term (current) use of insulin; B96.5 Pseudomonas (aeruginosa) (mallei) (pseudomallei) as the cause of diseases classified elsewhere; G47.00 Insomnia, unspecified; Z82.3 Family history of stroke; Z83.3 Family history of diabetes mellitus; Z87.442 Personal history of urinary calculi; Z90.49 Acquired absence of other specified parts of digestive tract; Z91.010 Allergy to peanuts; Z91.19 Patient's noncompliance with other medical treatment and regimen; N31.9 Neuromuscular dysfunction of bladder, unspecified
CPT/HCPCS: 36415; 80048; 80053; 81001; 82962; 83605; 85025; 87077; 87086; 87088; 87184; 87186; 97802; 99285; J7040; A4216; J0744; J2405

== ENCOUNTER 2020-10-08 15:56 | Emergency (ER) | payer MEDICARE, MEDICAID, SELFPAY ==
[2020-09-24 03:11] VITALS: BMI 40.8
[2020-10-08 15:58] VITALS: BP 131/77; PULSE 84; RESP 17; TEMP 36.3; O2SAT 95; BMI 40.0
[2020-10-08] MEDS: Ondansetron 4 MG/2 ML Vial IV (18:17)
[2020-10-08] MEDS: Morphine 4 MG/ML Syringe IV ×2 (18:17→21:28)
[2020-10-08 18:30] LABS: Absolute Lymphocyte Count 2.99 X10^3/uL (0.83-4.51); Absolute Neutrophil Count 7.5 X10^3/uL (2.0-7.7); Basophil# 0.09 X10^3/uL; Basophil% 0.8 % (0-1); Eosinophil# 0.26 X10^3/uL; Eosinophils% 2.2 % (0-5); Hematocrit 42.9 % (37-47); Hemoglobin 14.1 g/dL (12.0-15.0); Lymphocyte # 2.99 X10^3/ul (0.83-4.51); Lymphocyte % 25.1 % (19-41); Mean Corp Hgb Conc 32.9 g/dL (32-36); Mean Corpuscular Hgb 29.6 pg (27.0-32.0); Mean Corpuscular Volume 90.1 fL (81-99); Mean Platelet Vol. 10.8 fl (6.2-12.0); Monocyte# 0.99 X10^3/uL; Monocyte% 8.3 % (0-10); NRBC Flagged by Analyzer 0 % (0-5); Neutrophil # 7.49 X10^3/uL (2.7-7.7); Neutrophil % 62.8 % (47-70); Platelet Count 240 K/mm3 (150-450); RBC Distribution Width CV 12.9 % (11.6-14.6); RBC Distribution Width SD 42.5 fl (35.1-43.9); Red Blood Count 4.76 M/mm3 (4.2-5.4); White Blood Count 11.9 K/mm3 (4.4-11.0)
[2020-10-08 18:43] LABS: ALB/GLOB Ratio 0.9 RATIO (0.9-2.4); AST(SGOT) 33 U/L (15-37); Alanine Aminotransfer ALT/SGPT 64 U/L (13-56); Albumin, Serum 3.8 g/dL (3.2-5.0); Alkaline Phosphatase 94 U/L (45-117); Anion Gap 5 (5-15); BUN 8 mg/dL (7-18); BUN/Creat Ratio 8.9 RATIO (10-20); Calcium,Total 9.3 mg/dL (8.5-10.1); Chloride 104 mmol/L (98-107); EST Glomerular Filtration Rate 74 mL/min (>60); Est Glom Filt Rate - Afr Amer 90 mL/min (>60); Estimated Creatinine Clearance 67.03 ml/min; Globulin 4.3 g/dL (2.2-4.2); Glucose 202 mg/dL (74-106); Potassium 3.9 mmol/L (3.5-5.1); Protein, Total 8.1 g/dL (6.4-8.2); Sodium Level 137 mmol/L (136-145)
[2020-10-08 18:44] LABS: Internal QC Validated? YES +Cl - CLEAR BKGD; Pregnancy, Serum, hCG Quali. NEGATIVE Negative
--- NOTE | 2020-10-08 20:13 | CT_ITS ---
HISTORY: Pain ADDITIONAL HISTORY: None provided. EXAMINATION/TECHNIQUE: CT Abdomen And Pelvis W/O Contrast Injection Enteric contrast was not given. Number of images including paperwork: [phone]. A radiation dose optimization technique was used for this scan. COMPARISON: 09/15/2019 FINDINGS: Evaluation of the abdominopelvic organs is limited in the absence of contrast. LOWER THORAX: No consolidation or pleural effusion. LIVER: Decreased hepatic density compatible steatosis. Enlarged caudate lobe again seen. GALLBLADDER: Cholecystectomy. BILE DUCTS: No significant biliary dilatation. SPLEEN: Unremarkable. PANCREAS: Unremarkable. ADRENAL GLANDS: Unremarkable. KIDNEYS/URETERS: 4 mm right lower pole nonobstructing renal calculus appears similar. BOWEL: No bowel obstruction. No significant bowel wall thickening. No localized inflammation. Large amount of colonic stool. APPENDIX: No evidence of appendicitis. FREE FLUID: No significant free fluid. FREE AIR: None. LYMPH NODES: No pathologic appearing adenopathy. PERITONEUM, RETROPERITONEUM AND MESENTERY: Otherwise unremarkable. VASCULATURE: Unremarkable as imaged. ABDOMINAL WALL: Ventral hernia repair with mesh. PELVIS: Bladder to compress by suprapubic catheter. Calcification measuring 2.4 x 3.8 cm adjacent to the tip of the Morales catheter. Pelvic organs appear similar. OSSEOUS AND SOFT TISSUE STRUCTURES: No acute skeletal findings. CT/Abdomen/Pelvis without Cont IMPRESSION: No acute abdominopelvic abnormality. Large amount of colonic stool. Nonobstructing right renal calculus. Large calcification in the bladder. Additional findings above. Individualized dose optimization techniques were used for this CT. at 2050 Reported and signed by: Araseli Briones MD Electronically Signed: Araseli Briones MD at 20:50 EDT Tel , Service support ,
[2020-10-08 20:36] LABS: Bacteria 0 SEEN /hpf (None Seen); Mucous, Urine 0 SEEN /hpf (<or=2+)
[2020-10-08 20:40] LABS: Color, Urine Yellow (Yellow); Glucose, Dipstick 100 mg/dl (Normal); Ketone-Dipstick Negative (Negative); Leukocyte Esterase-Dipstick 500 /ul (Negative); Nitrite-Dipstick Negative (Negative); Occult Blood-Urine 250 /ul (Negative); Protein-Dipstick 30 mg/dl (Negative); Urine Bilirubin Dipstick Negative (Negative); Urine Clarity Clear (Clear); Urine Urobilinogen Normal (Normal)
[2020-10-08 20:44] VITALS: BP 120/70; PULSE 75; RESP 16; O2SAT 98
[2020-10-08 20:50] LABS: Red Blood Cells-Urine 5-10 SEEN /hpf (0-5); Squamous Epithelial Cells - UA 0-5 SEEN /hpf (5-10); White Blood Cells 10-25 SEEN /hpf (0-5)
[2020-10-08] MEDS: Ceftriaxone 1 GM/50 ML BAG IV (21:27)
--- NOTE | 2020-10-08 23:10 | EDS_ITS ---
HPI History of Present Illness Chief Complaint: Complaint Informant: patient Onset/Context/Timing Onset: Today Context: Sudden Onset Quality: Throbbing, stabbing Location: Suprapubic Worsened by: Nothing Relieved by: Nothing Narrative Narrative: Patient presents with lower abdominal pain and urinary retention that began today. Patient has a suprapubic catheter in place. Patient states he quit draining today. Patient states she is having worsening lower abdominal pain. Patient describes pain as throbbing and stabbing. Patient states the pain is constant. Patient denies any fevers or chills. Patient admits to nausea but denies any vomiting. Patient has a history of neurogenic bladder and neurogenic bowels from her spina bifida. 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 exposed DJD (degenerative joint disease) of thoracic spine Dysthymic disorder Essential hypertension Hematochezia History of kidney stones History of migraine Hydronephrosis of right kidney Hyperlipidemia Infection of bladder catheter Insomnia Lipomeningocele Lower extremity edema Morbid obesity with BMI of 40.0-44.9, adult Neurogenic bladder Neurogenic bowel Non-compliance Normochromic normocytic anemia Panic attacks PSVT (paroxysmal supraventricular tachycardia) Sepsis Spina bifida aperta of lumbar spine Thyroid cyst Type 2 diabetes mellitus with diabetic polyneuropathy Ulcer of left heel and midfoot with fat layer exposed Uninodular goiter UTI (urinary tract infection) UTI (urinary tract infection) Home Medications furosemide 20 mg PO DAILY@1700 08/28/18 [History Last Taken 09/24/20 16:44] furosemide 40 mg PO BREAKFAST 04/05/19 [History Last Taken 09/25/20 09:39] insulin glargine 100 unit/mL (3 mL) subcutaneous pen 25 unit SC QHS 11/01/19 [History Last Taken 09/24/20 22:17] lisinopril 2.5 mg tablet 2.5 mg PO DAILY 11/01/19 [History Last Taken 09/25/20 09:39] oxybutynin chloride 15 mg tablet,extended release 24 hr 15 mg PO DAILY 11/12/19 [History Last Taken 09/25/20 09:39] propranolol 10 mg PO BID 01/13/20 [History Last Taken 02/11/20] acetaminophen 1,000 mg PO TID PRN PRN 02/12/20 [History Last Taken 09/24/20 19:24] phenazopyridine 200 mg PO BID PRN PRN #10 tab 07/13/20 [Rx Last Taken Unknown] sulfamethoxazole-trimethoprim 1 tab PO BID #20 tab 07/17/20 [Rx Last Taken Unknown] ciprofloxacin HCl [Cipro] 500 mg PO BID #16 tab 09/25/20 [Rx Last Taken Unknown] ciprofloxacin HCl 500 mg PO BID #28 tablet 10/08/20 [Rx Last Taken Unknown] Allergy/AdvReac Type Severity Reaction Status Date / Time mushroom Allergy Anaphylaxis Verified 10/08/20 15:57 peanut Allergy Anaphylaxis Verified 10/08/20 15:57 Gadolinium-MRI Contrast AdvReac Vomiting Verified 10/08/20 15:57 Medium Latex, Natural Rubber AdvReac Rash Verified 10/08/20 15:57 Family History Mother CVA (cerebral vascular accident) Thyroid disorder Diabetes Hypertension Heart disease Hyperlipidemia Myocardial infarction, Onset Age: 54 mother had diabetes Father Cancer skin Grandmother Cancer liver Surgical History history insertion suprapubic catheter History of cholecystectomy History of dilation and curettage History of spinal surgery Hx of foot surgery Hx of ventral hernia repair S/P thyroid biopsy (~11/06/19) Status post gastric surgery Social History Smoking Status: Never smoker alcohol intake: current substance use type: does not use ROS ROS ED Constitutional Constitutional ED: Denies chills or fever(s) Eyes Eyes: Denies blurry vision or change in vision ENT ENT ED: Denies rhinorrhea or sore throat Cardiovascular Cardiovascular: Denies chest pain or palpitations Respiratory/Chest Respiratory/Chest: Denies cough or dyspnea Gastrointestinal Gastrointestinal: Reports abdominal pain and nausea; Denies vomiting Musculoskeletal Musculoskeletal: Reports back pain; Denies neck pain Integumentary Denies abscess or rash Neurologic Neurologic: Denies headache(s) or weakness Endocrine Endocrinology: Denies polydipsia or polyuria Allergic/Immunologic Allergic/Immunologic ED: Denies mouth swelling or urticaria EXAM Physical Exam Const Vital Signs: 10/08/20 15:58 10/08/20 20:44 10/08/20 23:23 Temperature 97.3 F L Temperature Source Temporal Pulse Rate 84 75 75 Respiratory Rate 17 16 16 Blood Pressure 131/77 H 120/70 114/70 Blood Pressure Mean 95 86 Pulse Ox 95 98 Oxygen Delivery Method Room Air Room Air Positive well nourished, well developed and obese General Appearance ED: well developed Nutritional Appearance: obese HEENT Reports moist mucous membranes Neck supple and no JVD Resp normal respiratory effort and clear to auscultation bilaterally Cardio regular rate and regular rhythm GI non-distended Auscultation: normoactive bowel sounds Palpation: soft and tender suprapubic; Negative for guarding or rebound tenderness present Neuro oriented x3, CN's II-XII intact bilaterally and no sensory deficits noted Sensorium / Orientation: alert Psych mental status grossly normal MDM MDM MDM Narrative Medical decision making narrative: Patient was given a dose of morphine and Zofran initially. The suprapubic catheter was irrigated. There is minimal return. The suprapubic catheter was replaced. CBC shows a slight leukocytosis of 11.9. Comprehensive metabolic profile was essentially within normal limits. Serum hCG was negative. Urinalysis shows leukocyte esterase of 500 with 10-25 white blood cells and 5-10 red blood cells. Patient was given a dose of Rocephin. Patient states she felt like her catheter is no longer draining. I attempted manipulation of the catheter several times. We attempted irrigation again. There is no improvement with this. CT scan of the abdomen and pelvis was obtained. There is no acute intra-abdominal pathology. There is a large calculus in the bladder. Patient was advised of her findings. The catheter was replaced again. Patient was given a repeat dose of morphine. Patient states she has an appointment at 4 PM tomorrow to have her catheter changed. Patient was instructed to follow-up with this appointment. Patient was restarted back on her Cipro. Patient was given a 2-week prescription. Patient understood and was agreeable with the plan. All questions were answered. Lab Data Attestation: I reviewed the patient's lab results. Labs: Laboratory Results - last 24 hr 10/08/20 10/08/20 10/08/20 18:20 18:20 18:20 WBC 11.9 H RBC 4.76 Hgb 14.1 Hct 42.9 MCV 90.1 MCH 29.6 MCHC 32.9 RDW Std Deviation 42.5 RDW Coeff of Claude 12.9 Plt Count 240 MPV 10.8 Immature Gran % (Auto) 0.800 Neut % (Auto) 62.8 Lymph % (Auto) 25.1 [place] % (Auto) 8.3 Eos % (Auto) 2.2 Baso % (Auto) 0.8 Absolute Neuts (auto) 7.5 Absolute Lymphs (auto) 2.99 Nucleated RBC % 0 Sodium 137 Potassium 3.9 Chloride 104 Carbon Dioxide 28.0 Anion Gap 5 BUN 8 Creatinine 0.90 Estim Creat Clear Calc 67.03 Est GFR (MDRD) Af Amer 90 Est GFR (MDRD) Non-Af 74 BUN/Creatinine Ratio 8.9 L Glucose 202 H Calcium 9.3 Total Bilirubin 0.30 AST 33 ALT 64 H Alkaline Phosphatase 94 Total Protein 8.1 Albumin 3.8 Globulin 4.3 H Albumin/Globulin Ratio 0.9 Serum , Qual NEGATIVE Urine Color Urine Clarity Urine pH Ur Specific [place] Urine Protein Urine Glucose (UA) Urine Ketones Urine Occult Blood Urine Nitrite Urine Bilirubin Urine Urobilinogen Ur Leukocyte Esterase Urine RBC Urine WBC Ur Squamous Epith Cells Urine Bacteria Urine Mucus 10/08/20 20:25 WBC RBC Hgb Hct MCV MCH MCHC RDW Std Deviation RDW Coeff of Claude Plt Count MPV Immature Gran % (Auto) Neut % (Auto) Lymph % (Auto) [place] % (Auto) Eos % (Auto) Baso % (Auto) Absolute Neuts (auto) Absolute Lymphs (auto) Nucleated RBC % Sodium Potassium Chloride Carbon Dioxide Anion Gap BUN Creatinine Estim Creat Clear Calc Est GFR (MDRD) Af Amer Est GFR (MDRD) Non-Af BUN/Creatinine Ratio Glucose Calcium Total Bilirubin AST ALT Alkaline Phosphatase Total Protein Albumin Globulin Albumin/Globulin Ratio Serum , Qual Urine Color Yellow Urine Clarity Clear Urine pH 6.0 Ur Specific [place] 1.010 Urine Protein 30 H Urine Glucose (UA) 100 H Urine Ketones Negative Urine Occult Blood 250 H Urine Nitrite Negative Urine Bilirubin Negative Urine Urobilinogen Normal Ur Leukocyte Esterase 500 H Urine RBC 5-10 SEEN Urine WBC 10-25 SEEN Ur Squamous Epith Cells 0-5 SEEN Urine Bacteria 0 SEEN Urine Mucus 0 SEEN Radiography Diagnostic Testing: Radiology Impression Abdomen/Pelvis CT 10/08/20 20:13 IMPRESSION: No acute abdominopelvic abnormality. Large amount of colonic stool. Nonobstructing right renal calculus. Large calcification in the bladder. Additional findings above. Individualized dose optimization techniques were used for this CT. at 2050 Reported and signed by: Araseli Briones MD Electronically Signed: Araseli Briones MD at 20:50 EDT Tel , Service support , Discharge Plan Triage Chief Complaint: Complaint ED Provider: Rigo Espinal Dx/Rx/DC Orders Clinical Impression: Urinary tract infection, Complication, blocked suprapubic catheter Instructions: ED Bladder Infection, Female (Adult) Prescriptions: New ciprofloxacin HCl [ciprofloxacin HCl] 500 MG tablet 500 mg PO BID Qty: 28 RF: 0 No Action Lantus Solostar U-100 Insulin 100 unit/mL (3 mL) insulin pen 25 unit SC QHS RF: 0 lisinopril 2.5 mg tablet 2.5 mg PO DAILY RF: 0 furosemide 20 MG tablet 20 mg PO DAILY@1700 RF: 0 furosemide 40 MG tablet 40 mg PO BREAKFAST RF: 0 oxybutynin chloride 15 mg tablet extended release 24hr 15 mg PO DAILY RF: 0 propranolol 10 MG tablet 10 mg PO BID RF: 0 acetaminophen 500 MG tablet 1,000 mg PO TID PRN PRN (Reason: Pain Or Fever) RF: 0 phenazopyridine 200 MG tablet 200 mg PO BID PRN PRN (Reason: Pain) Qty: 10 RF: 0 sulfamethoxazole-trimethoprim 1 TABLET tablet 1 tab PO BID Qty: 20 RF: 0 ciprofloxacin HCl [Cipro] 500 mg tablet 500 mg PO BID Qty: 16 RF: 0 Primary Care Provider: Will Shukla Referrals: Will Shukla MD [Primary Care Provider] - [facility] appointment Disposition Disposition: Home, self care Discharge Date/Time: 10/08/20 23:23
--- NOTE | 2020-10-08 23:17 | ED.RN ---
Minimal drainage from catheter. Bladder scan obtained, estimate of 50cc in bladder.
[2020-10-08 23:23] VITALS: BP 114/70; PULSE 75; RESP 16
== END 2020-10-08 23:23 | disposition home or self-care (01) ==
PROVIDERS: Emergency Provider Emergency Medicine; PCP Family Medicine
DX: N39.0 Urinary tract infection, site not specified (principal); T83.098A Other mechanical complication of other urinary catheter, initial encounter; Y69 Unspecified misadventure during surgical and medical care; N20.0 Calculus of kidney; E66.9 Obesity, unspecified; D64.9 Anemia, unspecified; E78.5 Hyperlipidemia, unspecified; I10 Essential (primary) hypertension; F32.9 Major depressive disorder, single episode, unspecified; G47.00 Insomnia, unspecified; N31.9 Neuromuscular dysfunction of bladder, unspecified; Z79.4 Long term (current) use of insulin; Z91.19 Patient's noncompliance with other medical treatment and regimen; Q05.9 Spina bifida, unspecified; Z87.442 Personal history of urinary calculi
CPT/HCPCS: 74176; 80053; 81001; 84703; 85025; 96365; 96375; 96376; 99284; J7030; J7050; A4216; J2405

== ENCOUNTER 2020-10-14 15:01 | Emergency (ER) | payer MEDICARE, MEDICAID, SELFPAY ==
[2020-10-14 15:02] VITALS: BP 159/94; PULSE 92; RESP 16; TEMP 36.2; O2SAT 97; BMI 40.0
--- NOTE | 2020-10-14 15:18 | EDS_ITS ---
HPI History of Present Illness Chief Complaint: Morales C/O Detail of Chief Complaint: Obstructed Morales catheter needs changed. Informant: patient Onset/Context/Timing Onset: Today Timing: Continuous Current Severity: Mild Maximum Severity: Mild Narrative Narrative: 31-year-old female history of spina bifida chronic indwelling Morales catheter. Recently had problems the Morales catheter being obstructed due to calcifications and debris. She actually sees a urologist at [facility] and is scheduled for surgery to help correct this next month. States her Morales catheter has been working since earlier today. Feels her bladder is full. Just once a changes again. Currently she is on antibiotics for UTI. She denies other complaints. Prior similar symptoms: Yes Recent Illness/Hospitalization: No PFSH PFSH Medical History Anxiety and depression Arthritis Cellulitis of left lower extremity Chronic back pain Chronic nausea Constipation Delayed wound healing Diabetes mellitus, type II Diabetic ulcer of left heel with fat layer exposed DJD (degenerative joint disease) of thoracic spine Dysthymic disorder Essential hypertension Hematochezia History of kidney stones History of migraine Hydronephrosis of right kidney Hyperlipidemia Infection of bladder catheter Insomnia Lipomeningocele Lower extremity edema Morbid obesity with BMI of 40.0-44.9, adult Neurogenic bladder Neurogenic bowel Non-compliance Normochromic normocytic anemia Panic attacks PSVT (paroxysmal supraventricular tachycardia) Sepsis Spina bifida aperta of lumbar spine Thyroid cyst Type 2 diabetes mellitus with diabetic polyneuropathy Ulcer of left heel and midfoot with fat layer exposed Uninodular goiter UTI (urinary tract infection) UTI (urinary tract infection) Home Medications furosemide 20 mg PO DAILY@1700 08/28/18 [History Last Taken 09/24/20 16:44] furosemide 40 mg PO BREAKFAST 04/05/19 [History Last Taken 09/25/20 09:39] insulin glargine 100 unit/mL (3 mL) subcutaneous pen 25 unit SC QHS 11/01/19 [History Last Taken 09/24/20 22:17] lisinopril 2.5 mg tablet 2.5 mg PO DAILY 11/01/19 [History Last Taken 09/25/20 09:39] oxybutynin chloride 15 mg tablet,extended release 24 hr 15 mg PO DAILY 11/12/19 [History Last Taken 09/25/20 09:39] propranolol 10 mg PO BID 01/13/20 [History Last Taken 02/11/20] acetaminophen 1,000 mg PO TID PRN PRN 02/12/20 [History Last Taken 09/24/20 19:24] phenazopyridine 200 mg PO BID PRN PRN #10 tab 07/13/20 [Rx Last Taken Unknown] sulfamethoxazole-trimethoprim 1 tab PO BID #20 tab 07/17/20 [Rx Last Taken Unknown] ciprofloxacin HCl [Cipro] 500 mg PO BID #16 tab 09/25/20 [Rx Last Taken Unknown] ciprofloxacin HCl 500 mg PO BID #28 tablet 10/08/20 [Rx Last Taken Unknown] Allergy/AdvReac Type Severity Reaction Status Date / Time mushroom Allergy Anaphylaxis Verified 10/08/20 15:57 peanut Allergy Anaphylaxis Verified 10/08/20 15:57 Gadolinium-MRI Contrast AdvReac Vomiting Verified 10/08/20 15:57 Medium Latex, Natural Rubber AdvReac Rash Verified 10/08/20 15:57 Family History Mother CVA (cerebral vascular accident) Thyroid disorder Diabetes Hypertension Heart disease Hyperlipidemia Myocardial infarction, Onset Age: 54 mother had diabetes Father Cancer skin Grandmother Cancer liver Surgical History history insertion suprapubic catheter History of cholecystectomy History of dilation and curettage History of spinal surgery Hx of foot surgery Hx of ventral hernia repair S/P thyroid biopsy (~11/06/19) Status post gastric surgery Social History Smoking Status: Never smoker alcohol intake: current substance use type: does not use ROS ROS ED ROS Narrative Nausea but otherwise denies being recently ill. No fever. Review of Systems ROS Unobtainable: Denies due to encephalopathy Constitutional Constitutional ED: Denies fever(s) Eyes Eyes: Denies change in vision ENT ENT ED: Denies sore throat Cardiovascular Cardiovascular: Denies chest pain Respiratory/Chest Respiratory/Chest: Denies dyspnea Gastrointestinal Gastrointestinal: Reports nausea; Denies abdominal pain, diarrhea or vomiting Genitourinary Genitourinary ED: Denies dysuria Musculoskeletal Musculoskeletal: Denies myalgias Integumentary Denies rash Neurologic Neurologic: Denies headache(s) Psychiatric Psychiatric: Denies depression Endocrine Endocrinology: Denies polyuria Allergic/Immunologic Allergic/Immunologic ED: Denies urticaria EXAM Physical Exam Narrative Exam Narrative: 39-year-old female with spina bifida. Vital signs stable afebrile. No distress. HEENT exam unremarkable. Lungs are clear. Heart regular rhythm. Abdomen soft. Slightly distended bladder. Mildly tender suprapubically. No peritoneal signs no signs of obstruction. Moving all 4 extremities. Neurologically she is awake and alert. No focal motor deficits. Const Vital Signs: 10/14/20 15:02 Temperature 97.2 F L Temperature Source Temporal Pulse Rate 92 Respiratory Rate 16 Blood Pressure 159/94 H Blood Pressure Mean 115 Pulse Ox 97 Oxygen Delivery Method Room Air HEENT Negative for trauma or tenderness Eyes PERRL and EOMs intact bilaterally Neck no lymphadenopathy, supple and no JVD General: Negative for tenderness Resp normal respiratory effort and clear to auscultation bilaterally Cardio regular rate, regular rhythm and no murmurs GI normal to inspection, nondistended, normoactive bowel sounds and non-distended Auscultation: normoactive bowel sounds Palpation: soft and tender Back/Spine no CVA tenderness Extremity normal to inspection Neuro oriented x3 Sensorium / Orientation: alert Motor Exam: strength 5/5 throughout Psych mental status grossly normal Skin no rashes or lesions noted MDM MDM MDM Narrative Medical decision making narrative: Patient's Morales catheter be changed. She is currently on Cipro for UTI I reviewed the urine culture and the bacteria is sensitive to the Cipro. She has outpatient follow-up and pending surgery with her urologist. Discharge Plan Triage Chief Complaint: Morales C/O ED Provider: Kevin Barcenas Dx/Rx/DC Orders Clinical Impression: Urinary catheter (Morales) change required Instructions: Caring for Your Indwelling Urinary Catheter Prescriptions: No Action Lantus Solostar U-100 Insulin 100 unit/mL (3 mL) insulin pen 25 unit SC QHS RF: 0 lisinopril 2.5 mg tablet 2.5 mg PO DAILY RF: 0 furosemide 20 MG tablet 20 mg PO DAILY@1700 RF: 0 furosemide 40 MG tablet 40 mg PO BREAKFAST RF: 0 oxybutynin chloride 15 mg tablet extended release 24hr 15 mg PO DAILY RF: 0 propranolol 10 MG tablet 10 mg PO BID RF: 0 acetaminophen 500 MG tablet 1,000 mg PO TID PRN PRN (Reason: Pain Or Fever) RF: 0 phenazopyridine 200 MG tablet 200 mg PO BID PRN PRN (Reason: Pain) Qty: 10 RF: 0 sulfamethoxazole-trimethoprim 1 TABLET tablet 1 tab PO BID Qty: 20 RF: 0 ciprofloxacin HCl [Cipro] 500 mg tablet 500 mg PO BID Qty: 16 RF: 0 ciprofloxacin HCl [ciprofloxacin HCl] 500 MG tablet 500 mg PO BID Qty: 28 RF: 0 Primary Care Provider: Will Shukla Referrals: Will Shukla MD [Primary Care Provider] - As Needed Activity Restrictions/Additional Instructions: Follow-up with your primary care physician and/or urologist as needed. Disposition Disposition: Home, self care
[2020-10-14 16:31] VITALS: BP 152/84; PULSE 88; RESP 17; TEMP 36.8; O2SAT 98
== END 2020-10-14 16:35 | disposition home or self-care (01) ==
LOC: ED 15:34
PROVIDERS: Emergency Provider Emergency Medicine; PCP Family Medicine
DX: T83.091A Other mechanical complication of indwelling urethral catheter, initial encounter (principal); N39.0 Urinary tract infection, site not specified; D64.9 Anemia, unspecified; E11.621 Type 2 diabetes mellitus with foot ulcer; E66.01 Morbid (severe) obesity due to excess calories; E78.5 Hyperlipidemia, unspecified; F32.9 Major depressive disorder, single episode, unspecified; G47.00 Insomnia, unspecified; I10 Essential (primary) hypertension; G89.29 Other chronic pain; L97.422 Non-pressure chronic ulcer of left heel and midfoot with fat layer exposed; N31.9 Neuromuscular dysfunction of bladder, unspecified; Q05.9 Spina bifida, unspecified; Z87.442 Personal history of urinary calculi; Z91.19 Patient's noncompliance with other medical treatment and regimen; Z79.4 Long term (current) use of insulin
CPT/HCPCS: 99282

== ENCOUNTER 2020-12-22 22:40 | Inpatient (IN) | payer MEDICARE, MEDICAID, SELFPAY ==
[2020-12-22 22:43] VITALS: BP 138/90; PULSE 94; RESP 18; TEMP 36.2; O2SAT 96; BMI 41.1
[2020-12-22 23:49] LABS: Absolute Neutrophil Count 11.7 X10^3/uL (2.0-7.7); Basophil# 0.12 X10^3/uL; Basophil% 0.7 % (0-1); Eosinophil# 0.16 X10^3/uL; Eosinophils% 0.9 % (0-5); Hematocrit 42.6 % (37-47); Hemoglobin 14.3 g/dL (12.0-15.0); Lymphocyte % 18.8 % (19-41); Mean Corp Hgb Conc 33.6 g/dL (32-36); Mean Corpuscular Hgb 30.2 pg (27.0-32.0); Mean Corpuscular Volume 90.1 fL (81-99); Mean Platelet Vol. 10.6 fl (6.2-12.0); Monocyte# 1.37 X10^3/uL; NRBC Flagged by Analyzer 0 % (0-5); Neutrophil % 68.6 % (47-70); Platelet Count 308 K/mm3 (150-450); RBC Distribution Width CV 12.9 % (11.6-14.6); RBC Distribution Width SD 42.4 fl (35.1-43.9); Red Blood Count 4.73 M/mm3 (4.2-5.4); White Blood Count 17.1 K/mm3 (4.4-11.0)
[2020-12-22 23:51] VITALS: BP 119/83; PULSE 77; RESP 16; TEMP 36.6; O2SAT 97
[2020-12-22] MEDS: Morphine 4 MG/ML Syringe IV (23:51)
[2020-12-22] MEDS: Ondansetron 4 MG/2 ML Vial IV (23:51)
[2020-12-23] VITALS (15 sets, daily range): BP systolic 102–130; BP diastolic 60–83; PULSE 55–78; RESP 16–18; TEMP 36.3–36.8; O2SAT 96–99; BMI 40.1
--- NOTE | 2020-12-23 | EX.ED.DYSGE1 ---
HPI History of Present Illness Chief Complaint: Abd Pain Informant: patient Narrative Narrative: Patient is a 40-year-old female with a past medical history of diabetes, spina bifida with neurogenic bladder who presents to the emergency department for abdominal pain. She states that she has had bladder and kidney pain over the past 3 days. Today she developed left lower quadrant pain which is new. She currently rates as 8 out of 10. She states that this started after having a bowel movement today. She is never had this pain before in the past. She does not know aggravating or relieving factors. It has been constant since earlier today. She has not been take anything for this. She thinks that she does have the start of a urinary tract infection. She does get frequent UTIs as she does have a suprapubic catheter. She states that this was last changed 2 weeks ago. She denies any fevers or chills. She has been nauseous and vomiting. She denies any change in bowel movements from her baseline. She does have some bright red blood stools which is not abnormal for her as she does have hemorrhoids. She denies any black tarry stool. She states she has had previous abdominal hernia repairs. [facility] Medical History Anxiety and depression Arthritis Cellulitis of left lower extremity Chronic back pain Chronic nausea Constipation Delayed wound healing Diabetes mellitus, type II Diabetic ulcer of left heel with fat layer exposed DJD (degenerative joint disease) of thoracic spine Dysthymic disorder Essential hypertension Hematochezia History of kidney stones History of migraine Hydronephrosis of right kidney Hyperlipidemia Infection of bladder catheter Insomnia Lipomeningocele Lower extremity edema Morbid obesity with BMI of 40.0-44.9, adult Neurogenic bladder Neurogenic bowel Non-compliance Normochromic normocytic anemia Panic attacks PSVT (paroxysmal supraventricular tachycardia) Sepsis Spina bifida aperta of lumbar spine Thyroid cyst Type 2 diabetes mellitus with diabetic polyneuropathy Ulcer of left heel and midfoot with fat layer exposed Uninodular goiter UTI (urinary tract infection) UTI (urinary tract infection) Home Medications furosemide 20 mg PO DAILY@1700 08/28/18 [History Last Taken 09/24/20 16:44] furosemide 40 mg PO BREAKFAST 04/05/19 [History Last Taken 09/25/20 09:39] insulin glargine 100 unit/mL (3 mL) subcutaneous pen 25 unit SC QHS 11/01/19 [History Last Taken 09/24/20 22:17] lisinopril 2.5 mg tablet 2.5 mg PO DAILY 11/01/19 [History Last Taken 09/25/20 09:39] oxybutynin chloride 15 mg tablet,extended release 24 hr 15 mg PO DAILY 11/12/19 [History Last Taken 09/25/20 09:39] propranolol 10 mg PO BID 01/13/20 [History Last Taken 02/11/20] acetaminophen 1,000 mg PO TID PRN PRN 02/12/20 [History Last Taken 09/24/20 19:24] phenazopyridine 200 mg PO BID PRN PRN #10 tab 07/13/20 [Rx Last Taken Unknown] sulfamethoxazole-trimethoprim 1 tab PO BID #20 tab 07/17/20 [Rx Last Taken Unknown] ciprofloxacin HCl [Cipro] 500 mg PO BID #16 tab 09/25/20 [Rx Last Taken Unknown] ciprofloxacin HCl 500 mg PO BID #28 tablet 10/08/20 [Rx Last Taken Unknown] Allergy/AdvReac Type Severity Reaction Status Date / Time mushroom Allergy Anaphylaxis Verified 12/22/20 22:43 peanut Allergy Anaphylaxis Verified 12/22/20 22:43 Gadolinium-MRI Contrast AdvReac Vomiting Verified 12/22/20 22:43 Medium Latex, Natural Rubber AdvReac Rash Verified 12/22/20 22:43 Family History Mother CVA (cerebral vascular accident) Thyroid disorder Diabetes Hypertension Heart disease Hyperlipidemia Myocardial infarction, Onset Age: 54 mother had diabetes Father Cancer skin Grandmother Cancer liver Surgical History history insertion suprapubic catheter History of cholecystectomy History of dilation and curettage History of spinal surgery Hx of foot surgery Hx of ventral hernia repair S/P thyroid biopsy (~11/06/19) Status post gastric surgery Social History (Updated 12/23/20 @ 02:[address] Ny Anderson MD) household members: significant other Smoking Status: Never smoker alcohol intake: current substance use type: does not use ROS ROS ED Constitutional Constitutional ED: Denies chills or fever(s) Eyes Eyes: Denies change in vision ENT ENT ED: Denies epistaxis or rhinorrhea Cardiovascular Cardiovascular: Denies chest pain or palpitations Respiratory/Chest Respiratory/Chest: Denies cough, dyspnea or dyspnea on exertion Gastrointestinal Gastrointestinal: Reports abdominal pain, nausea and vomiting; Denies constipation, diarrhea or melena Genitourinary Genitourinary ED: Denies dysuria, hematuria or urinary frequency Musculoskeletal Musculoskeletal: Denies back pain or neck pain Integumentary Denies rash Neurologic Neurologic: Denies dizziness, headache(s) or weakness EXAM Physical Exam Const Vital Signs: 12/22/20 22:43 12/22/20 23:51 12/23/20 00:14 Temperature 97.2 F L 98 F 98.3 F Temperature Source Temporal Temporal Temporal Pulse Rate 94 77 77 Respiratory Rate 18 16 16 Blood Pressure 138/90 H 119/83 H 112/75 Blood Pressure Mean 106 95 87 Pulse Ox 96 97 96 Oxygen Delivery Method Room Air Room Air Room Air 12/23/20 00:21 12/23/20 01:08 Temperature 98.3 F 98.1 F Temperature Source Temporal Oral Pulse Rate 77 78 Respiratory Rate 16 18 Blood Pressure 112/75 102/83 H Blood Pressure Mean 87 89 Pulse Ox 96 99 Oxygen Delivery Method Room Air Room Air Positive well nourished and well developed General Appearance ED: well developed and NAD HEENT Reports normocephalic and head/scalp atraumatic Eyes PERRL and EOMs intact bilaterally Neck supple Chest Wall inspection of chest normal Resp normal respiratory effort and clear to auscultation bilaterally Auscultation: Negative for rales, rhonchi or wheezes Cardio regular rate, regular rhythm and no murmurs GI normal to inspection, nondistended, normoactive bowel sounds GI Narrative: Tenderness in the left lower quadrant. Palpation: soft; Negative for guarding or rebound tenderness present Back/Spine Back/Spine Narrative: Bilateral CVA tenderness. Extremity normal to inspection General Extremety ED: Negative for edema or tenderness General Extremity: Negative for edema Neuro no sensory deficits noted Sensorium / Orientation: alert Motor Exam: strength 5/5 throughout Psych mental status grossly normal Skin no rashes or lesions noted MDM MDM MDM Narrative Medical decision making narrative: Patient presents to the emergency department for 3 days of bladder and kidney pain which she relates to history of UTI. She has new left lower quadrant pain after having a bowel movement. On arrival to the emergency department vital signs within normal limits. She is in no acute distress. We will treat her symptomatically with a dose of morphine and Zofran. Will check basic lab work and CT imaging of the abdomen/pelvis. Urinalysis and urine culture sent. Patient's urine did come back positive for urinary tract infection. Reviewing her past cultures patient will be treated with cefepime as each bacteria is been sensitive to this. Patient lactic acid is mildly elevated. This could be due to dehydration or the infection. Patient given a bolus of IV fluids. She does not require the full 30 cc/kg bolus dosing at this time and will reassess after each liter. Blood cultures will be obtained. Her lab work showed her to be significantly hyperglycemic. CT imaging did not reveal acute intra-abdominal/pelvis pathology. Given the fact she has these abnormal lab tests, source of infection will bring into the hospital for further evaluation and management. She otherwise has remained stable throughout ED stay. She understands and is agreeable this plan. All questions were answered. Lab Data Labs: Laboratory Results - last 24 hr 12/22/20 12/22/20 12/22/20 23:43 23:43 23:43 WBC 17.1 H RBC 4.73 Hgb 14.3 Hct 42.6 MCV 90.1 MCH 30.2 MCHC 33.6 RDW Std Deviation 42.4 RDW Coeff of Claude 12.9 Plt Count 308 MPV 10.6 Immature Gran % (Auto) 3.000 H Neut % (Auto) 68.6 Lymph % (Auto) 18.8 L [place]imer % (Auto) 8.0 Eos % (Auto) 0.9 Baso % (Auto) 0.7 Absolute Neuts (auto) 11.7 H Absolute Lymphs (auto) 3.20 Nucleated RBC % 0 Sodium 133 L Potassium 4.1 Chloride 101 Carbon Dioxide 23.0 Anion Gap 9 BUN 17 Creatinine 1.12 H Estim Creat Clear Calc 53.34 Est GFR (MDRD) Af Amer 70 Est GFR (MDRD) Non-Af 58 L BUN/Creatinine Ratio 15.2 Glucose 534 H* Lactic Acid 2.2 H* Calcium 9.1 Total Bilirubin 0.30 AST 22 ALT 48 Alkaline Phosphatase 104 Total Protein 8.0 Albumin 3.6 Globulin 4.4 H Albumin/Globulin Ratio 0.8 L Lipase 157 Urine Color Urine Clarity Urine pH Ur Specific Cary Urine Protein Urine Glucose (UA) Urine Ketones Urine Occult Blood Urine Nitrite Urine Bilirubin Urine Urobilinogen Ur Leukocyte Esterase Urine RBC Urine WBC Ur Squamous Epith Cells Urine Bacteria Urine Mucus Urine Test 12/22/20 23:55 WBC RBC Hgb Hct MCV MCH MCHC RDW Std Deviation RDW Coeff of Claude Plt Count MPV Immature Gran % (Auto) Neut % (Auto) Lymph % (Auto) Latimer % (Auto) Eos % (Auto) Baso % (Auto) Absolute Neuts (auto) Absolute Lymphs (auto) Nucleated RBC % Sodium Potassium Chloride Carbon Dioxide Anion Gap BUN Creatinine Estim Creat Clear Calc Est GFR (MDRD) Af Amer Est GFR (MDRD) Non-Af BUN/Creatinine Ratio Glucose Lactic Acid Calcium Total Bilirubin AST ALT Alkaline Phosphatase Total Protein Albumin Globulin Albumin/Globulin Ratio Lipase Urine Color Yellow Urine Clarity Clear Urine pH 6.0 Ur Specific Cary 1.010 Urine Protein 15 H Urine Glucose (UA) 1000 H Urine Ketones Negative Urine Occult Blood 25 H Urine Nitrite Positive H Urine Bilirubin Negative Urine Urobilinogen Normal Ur Leukocyte Esterase 100 H Urine RBC 0-5 SEEN Urine WBC 5-10 SEEN Ur Squamous Epith Cells 0 SEEN Urine Bacteria 1+ Urine Mucus 0 SEEN Urine Test Negative Radiography Diagnostic Testing: Radiology Impression Abdomen/Pelvis CT 12/23/20 00:[address]: [address] evidence of acute intra-abdominal disease. 2. Hepatomegaly and hepatic steatosis. Electronically Signed: Sandra Blunt MD at 1:42 EDT , Service support , Discharge Plan Dx/Rx/DC Orders Clinical Impression: Sepsis, UTI (urinary tract infection), Hyperglycemia Disposition Disposition: Acute Care Hospital [facility] Discharge Date/Time: 12/23/20 03:00
[2020-12-23 00:01] LABS: Mucous, Urine 0 SEEN /hpf (<or=2+); Squamous Epithelial Cells - UA 0 SEEN /hpf (5-10)
[2020-12-23 00:02] LABS: Color, Urine Yellow (Yellow); Glucose, Dipstick 1000 mg/dl (Normal); Ketone-Dipstick Negative (Negative); Leukocyte Esterase-Dipstick 100 /ul (Negative); Nitrite-Dipstick Positive (Negative); Occult Blood-Urine 25 /ul (Negative); Protein-Dipstick 15 mg/dl (Negative); Urine Bilirubin Dipstick Negative (Negative); Urine Clarity Clear (Clear); Urine Urobilinogen Normal (Normal)
[2020-12-23 00:10] LABS: Bacteria 1+ /hpf (None Seen); Internal QC Validated? YES +Cl - CLEAR BKGD; Pregnancy, Urine Negative Negative; Red Blood Cells-Urine 0-5 SEEN /hpf (0-5); White Blood Cells 5-10 SEEN /hpf (0-5)
[2020-12-23 00:19] LABS: Lactic Acid 2.2 mmol/L (0.4-1.9)
[2020-12-23 00:20] LABS: ALB/GLOB Ratio 0.8 RATIO (0.9-2.4); AST(SGOT) 22 U/L (15-37); Alanine Aminotransfer ALT/SGPT 48 U/L (13-56); Albumin, Serum 3.6 g/dL (3.2-5.0); Alkaline Phosphatase 104 U/L (45-117); Anion Gap 9 (5-15); BUN 17 mg/dL (7-18); BUN/Creat Ratio 15.2 RATIO (10-20); Calcium,Total 9.1 mg/dL (8.5-10.1); Chloride 101 mmol/L (98-107); Creatinine, Serum 1.12 mg/dL (0.55-1.02); EST Glomerular Filtration Rate 58 mL/min (>60); Est Glom Filt Rate - Afr Amer 70 mL/min (>60); Estimated Creatinine Clearance 53.34 ml/min; Globulin 4.4 g/dL (2.2-4.2); Glucose 534 mg/dL (74-106); Lipase 157 U/L (73-393); Potassium 4.1 mmol/L (3.5-5.1); Sodium Level 133 mmol/L (136-145)
[2020-12-23] MEDS: 0.9% Normal Saline 1,000 ML 1000 ML IV (00:24)
--- NOTE | 2020-12-23 00:25 | CT_ITS ---
STUDY: CT ABDOMEN AND PELVIS WITH CONTRAST REASON FOR EXAM: Female, 40 years old patient with left lower quadrant ( LLQ) abdominal pain. Evaluate for diverticulitis. RADIATION DOSAGE (If Supplied By Facility): CTDIvol = ( 19.53 ) mGy, DLP = ( 1148.63 ) mGycm TECHNIQUE: Transaxial images were obtained from the dome of the diaphragm to the symphysis pubis without oral contrast. 100 mL of IV Isovue-300 was administered. Sagittal and coronal images were reconstructed. Individualized dose optimization techniques were used for this CT. COMPARISON: CT abdomen and pelvis dated 10/08/2020. FINDINGS: The visualized lung bases are unremarkable. The visualized portions of the heart are within normal limits. There is decreased attenuation of the liver consistent with steatosis. There is hepatomegaly with maximal dimension of the liver measuring 20.6 cm. There is non-visualization of the gallbladder, which may be secondary to either contraction or a prior cholecystectomy. Normal spleen. Normal pancreas. Normal bilateral adrenal glands. The right kidney is smaller than the left kidney with findings consistent multifocal parenchymal loss. This could be the result of previous pyelonephritis or ischemia. There is a nonobstructing calculus lower pole of the right kidney measuring about 4 mm in size Normal left kidney. Normal visualized stomach. There is no obvious dilated bowel, ascites or pneumoperitoneum. Small bowel has a grossly normal appearance. Stool is visible throughout the colon. The appendix is visualized and appears normal. Normal abdominal aorta. Normal inferior vena cava. Normal retroperitoneum. The urinary bladder is not distended secondary to a suprapubic catheter. There is some thickening of the urinary bladder wall. Uterus has a lobular contour suggesting possible leiomyoma. Patient has had a ventral herniorrhaphy with mesh material. Patient appears to have a spina bifida involving the L3, L4 and L5 segments. Postoperative changes are not excluded. CT/Abdomen/Pelvis W IV Cont ONLY IMPRESSION: 1. No CT evidence of acute intra-abdominal disease. 2. Hepatomegaly and hepatic steatosis. Electronically Signed: Sandra Blunt MD at 1:42 EDT , Service support ,
--- NOTE | 2020-12-23 01:59 | PCM.HP.STD ---
HPI - General General Date of Admission: 12/23/20 Date of Service: 12/23/20 Chief Complaint: Abdominal pain, nausea, emesis HPI Narrative The patient is a 40 y/o F w/ PMHx: Anxiety and Depression/Panic attacks, Chronic normocytic anemia, Spina Bifida with neurogenic bowels and bladder with suprapubic catheter, Diabetes mellitus type II, Morbid Obesity, HTN, HLD who presents to the [facility] ED on 12/23/20 with history of worsening suprapubic discomfort over the last 3 days with development over the last 24 hours specifically left lower quadrant pain rated at 8 of 10 in severity which initially happened following a bowel movement, constant since onset with associated nausea and emesis and reported red streaks in her stools although patient does note a history of hemorrhoids prompting eventual ED presentation. She reports the suprapubic pain as severe, constant as if someone is pulling at her bladder with also right flank pain and describes the abdominal general discomfort as of being punched in the gut, rating it 10 out of 10. Work-up in the ED included T 98.1, heart rate 78, BP 102/83, respiratory rate 18, 99% on room air, CBC with WBC 17.1, hemoglobin 14.3, platelet 308 with left shift, CMP with sodium 133, BUN/creatinine 17/1.12, glucose of 534, anion gap 9, lactic acid 2.2, unremarkable hepatic profile otherwise, lipase 157, urinalysis with specific gravity 1.010, protein 15, glucose of thousand, urine ketones negative, occult blood 25, positive nitrates, leukocyte Estrace 100, urine WBCs only noted to be 5-10 with 1+ urine bacteria, CT abdomen and pelvis with no CT evidence of acute intra-abdominal disease, hepatomegaly with hepatic steatosis, no obvious distention of the urinary bladder with suprapubic catheter in place with only mild thickening. [facility] Medical History Anxiety and depression Arthritis Cellulitis of left lower extremity Chronic back pain Chronic nausea Constipation Delayed wound healing Diabetes mellitus, type II Diabetic ulcer of left heel with fat layer exposed DJD (degenerative joint disease) of thoracic spine Dysthymic disorder Essential hypertension Hematochezia History of kidney stones History of migraine Hydronephrosis of right kidney Hyperlipidemia Infection of bladder catheter Insomnia Lipomeningocele Lower extremity edema Morbid obesity with BMI of 40.0-44.9, adult Neurogenic bladder Neurogenic bowel Non-compliance Normochromic normocytic anemia Panic attacks PSVT (paroxysmal supraventricular tachycardia) Sepsis Spina bifida aperta of lumbar spine Thyroid cyst Type 2 diabetes mellitus with diabetic polyneuropathy Ulcer of left heel and midfoot with fat layer exposed Uninodular goiter UTI (urinary tract infection) UTI (urinary tract infection) Home Medications furosemide 20 mg PO DAILY@1700 08/28/18 [History Last Taken 09/24/20 16:44] furosemide 40 mg PO BREAKFAST 04/05/19 [History Last Taken 09/25/20 09:39] insulin glargine 100 unit/mL (3 mL) subcutaneous pen 25 unit SC QHS 11/01/19 [History Last Taken 09/24/20 22:17] lisinopril 2.5 mg tablet 2.5 mg PO DAILY 11/01/19 [History Last Taken 09/25/20 09:39] oxybutynin chloride 15 mg tablet,extended release 24 hr 15 mg PO DAILY 11/12/19 [History Last Taken 09/25/20 09:39] propranolol 10 mg PO BID 01/13/20 [History Last Taken 02/11/20] acetaminophen 1,000 mg PO TID PRN PRN 02/12/20 [History Last Taken 09/24/20 19:24] phenazopyridine 200 mg PO BID PRN PRN #10 tab 07/13/20 [Rx Last Taken Unknown] sulfamethoxazole-trimethoprim 1 tab PO BID #20 tab 07/17/20 [Rx Last Taken Unknown] ciprofloxacin HCl [Cipro] 500 mg PO BID #16 tab 09/25/20 [Rx Last Taken Unknown] ciprofloxacin HCl 500 mg PO BID #28 tablet 10/08/20 [Rx Last Taken Unknown] Allergy/AdvReac Type Severity Reaction Status Date / Time mushroom Allergy Anaphylaxis Verified 12/22/20 22:43 peanut Allergy Anaphylaxis Verified 12/22/20 22:43 Gadolinium-MRI Contrast AdvReac Vomiting Verified 12/22/20 22:43 Medium Latex, Natural Rubber AdvReac Rash Verified 12/22/20 22:43 Family History Mother CVA (cerebral vascular accident) Thyroid disorder Diabetes Hypertension Heart disease Hyperlipidemia Myocardial infarction, Onset Age: 54 mother had diabetes Father Cancer skin Grandmother Cancer liver Surgical History history insertion suprapubic catheter History of cholecystectomy History of dilation and curettage History of spinal surgery Hx of foot surgery Hx of ventral hernia repair S/P thyroid biopsy (~11/06/19) Status post gastric surgery Social History (Updated 12/23/20 @ 02:[address] Ny Anderson MD) household members: significant other Smoking Status: Never smoker alcohol intake: current substance use type: does not use ROS ROS Narrative Admission Review of Systems: CONSTITUTIONAL: No weight loss, fever, chills, + weakness or fatigue. HEENT: Eyes: No visual loss, blurred vision, double vision or yellow sclerae. Ears, Nose, Throat: No hearing loss, sneezing, congestion, runny nose or sore throat. SKIN: No rash or itching, lesions, wounds. CARDIOVASCULAR: No chest pain, chest pressure or chest discomfort, palpitations, edema, orthopnea, syncopal events. RESPIRATORY: No shortness of breath, cough or sputum, wheezing, hemoptysis. GASTROINTESTINAL: + anorexia, nausea, vomiting, abdominal pain, red streaking on stools with hemorrhoids, No melena, patricia BRBPR. GENITOURINARY: + Suprapubic pain, catheter in place. NEUROLOGICAL: No headache, dizziness, syncope, paralysis, ataxia, numbness or tingling in the extremities, focal weakness, change in bowel or bladder control, seizure. MUSCULOSKELETAL: + muscle, back pain, joint pain or stiffness. HEMATOLOGIC: No anemia, bleeding or bruising. LYMPHATICS: No enlarged nodes. No history of splenectomy. PSYCHIATRIC: + history of depression or anxiety. ENDOCRINOLOGIC: No reports of sweating, cold or heat intolerance. No polyuria or polydipsia. ALLERGIES: No history of asthma, hives, eczema or rhinitis. Vital Signs Vital Signs Vital Signs: 12/22/20 22:43 12/22/20 23:51 12/23/20 00:14 Temperature 97.2 F L 98 F 98.3 F Temperature Source Temporal Temporal Temporal Pulse Rate 94 77 77 Respiratory Rate 18 16 16 Blood Pressure 138/90 H 119/83 H 112/75 Blood Pressure Mean 106 95 87 Pulse Ox 96 97 96 Oxygen Delivery Method Room Air Room Air Room Air 12/23/20 00:21 12/23/20 01:08 Temperature 98.3 F 98.1 F Temperature Source Temporal Oral Pulse Rate 77 78 Respiratory Rate 16 18 Blood Pressure 112/75 102/83 H Blood Pressure Mean 87 89 Pulse Ox 96 99 Oxygen Delivery Method Room Air Room Air Weight Weight: 225 lb Body Mass Index (BMI) 41.1 Physical Exam Narrative Physical Examination: General: Awake, alert, oriented x 3 and cooperative, seated upright in the ED bed, comfortable appearing, watching TV, no obvious evidence of pain but states she has severe ongoing lower abdomen/suprapubic pain. Skin: Normal color, normal turgor, no icterus, no cyanosis. HEENT: AT/NC, EOMI, PERRLA, mildly dry MM, no carotid bruits or JVD noted; however thickened neck makes examination difficult. Lungs: Mildly diminished, greater bases, appropriate effort, no rales, ronchi or wheezing. Heart: Regular rate and rhythm; no gallop, rub audible. Abdomen: Soft, morbidly obese, bilateral lower quadrant discomfort with palpation, voluntary guarding, difficult to assess distention given habitus and discomfort, distant normal BS, no obvious HSM however habitus and pain make evaluation difficult. Extremities: No cyanosis, clubbing, or edema. Neurological: Patient awake, alert, oriented as noted, cognitive function intact; pupils equally reactive to light and accommodation, cranial nerves II-XII grossly normal, moving all 4 extremities, no focal deficits, strength moderately global decrease secondary to acute presentation complaints. Psychiatric: Affect appears normal, no acute evidence of depressive or anxiety feelings. Results Lab / Micro Data Result Diagrams: 12/22/20 23:43 12/22/20 23:43 Labs: Laboratory Results - last 24 hr 12/22/20 23:43: WBC 17.1 H, RBC 4.73, Hgb 14.3, Hct 42.6, MCV 90.1, MCH 30.2, MCHC 33.6, RDW Std Deviation 42.4, RDW Coeff of Claude 12.9, Plt Count 308, MPV 10.6, Immature Gran % (Auto) 3.000 H, Neut % (Auto) 68.6, Lymph % (Auto) 18.8 L, [place] % (Auto) 8.0, Eos % (Auto) 0.9, Baso % (Auto) 0.7, Absolute Neuts (auto) 11.7 H, Absolute Lymphs (auto) 3.20, Nucleated RBC % 0 12/22/20 23:43: Sodium 133 L, Potassium 4.1, Chloride 101, Carbon Dioxide 23.0, Anion Gap 9, BUN 17, Creatinine 1.12 H, Estim Creat Clear Calc 53.34, Est GFR (MDRD) Af Amer 70, Est GFR (MDRD) Non-Af 58 L, BUN/Creatinine Ratio 15.2, Glucose 534 H*, Calcium 9.1, Total Bilirubin 0.30, AST 22, ALT 48, Alkaline Phosphatase 104, Total Protein 8.0, Albumin 3.6, Globulin 4.4 H, Albumin/Globulin Ratio 0.8 L, Lipase 157 12/22/20 23:43: Lactic Acid 2.2 H* 12/22/20 23:55: Urine Color Yellow, Urine Clarity Clear, Urine pH 6.0, Ur Specific [place] 1.010, Urine Protein 15 H, Urine Glucose (UA) 1000 H, Urine Ketones Negative, Urine Occult Blood 25 H, Urine Nitrite Positive H, Urine Bilirubin Negative, Urine Urobilinogen Normal, Ur Leukocyte Esterase 100 H, Urine RBC 0-5 SEEN, Urine WBC 5-10 SEEN, Ur Squamous Epith Cells 0 SEEN, Urine Bacteria 1+, Urine Mucus 0 SEEN, Urine Test Negative Radiology Impression Abdomen/Pelvis CT 12/23/20 00:25 IMPRESSION: 1. No CT evidence of acute intra-abdominal disease. 2. Hepatomegaly and hepatic steatosis. Electronically Signed: Sandra Blunt MD at 1:42 EDT , Service support , Assessment & Plan Assessment/Plan (1) Urinary tract infection: QUALIFIERS: Urinary tract infection type: site unspecified Hematuria presence: without hematuria Qualified Code(s): N39.0 - Urinary tract infection, site not specified PLAN: The patient is a 40 y/o F w/ PMHx: Anxiety and Depression/Panic attacks, Chronic normocytic anemia, Spina Bifida with neurogenic bowels and bladder with suprapubic catheter, Diabetes mellitus type II, Morbid Obesity, HTN, HLD who presents to the [facility] ED on 12/23/20 with history of worsening suprapubic discomfort over the last 3 days with development over the last 24 hours specifically left lower quadrant pain rated at 8 of 10 in severity which initially happened following a bowel movement, constant since onset with associated nausea and emesis and reported red streaks in her stools although patient does note a history of hemorrhoids prompting eventual ED presentation. 1. Acute Severe Sepsis secondary to Abdominal Pain, concern for recurrent Complicated Acute Bladder Infection with Spina Bifida with Neurogenic Bowel/Bladder w/ Chronic Suprapubic Catheter : VS not marked appearing, but noted mild elevated LA 2.2 and WBC elevation 17.1. Will admit to [facility] upon ED evaluation remarkable, pending UCx, continue IVFs w/ LA trending per protocol, monitor I/Os, continue IV cefepime based on prior UCx w/ pseudomonas w/ transition as able pending sensitivities and speciation. Bld cx x 2 obtained in the ED. 2. Hypertension: Continue home regimen including lisinopril, Lasix, propranolol with hold parameters, PRN hydralazine. 3. Hyperlipidemia: Not on regimen, defer to outpatient. 4. Morbid Obesity: Weight loss and lifestyle changes encouraged, nutrition consulted. 5. Diabetes mellitus type II with hyperglycemia: We will continue home insulin regimen, ADA diet, accu checks w/ ISS. From history patient does have noncompliance issues however acute presentation with #1 likely also contributing to hyperglycemia. Patient also reports recent steroid injections. Anion gap normal. No ketones noted in the urine. Hemoglobin A1c requested. Nutrition consultation for education and teaching. 6. Anxiety and Depression/Panic attacks: Not on regimen, would benefit from continued outpatient counseling and medication addition if felt appropriate at that time. 7. DVT prophylaxis: SCDs, Lovenox. Charges/Coding Visit Charges Inpatient E&M: 16568 Init Hosp L3
[2020-12-23] MEDS: Morphine 2 MG/ML Syringe IV ×3 (03:23→17:05)
[2020-12-23] MEDS: 0.9% Normal Saline 1,000 ML 999 ML IV (03:24)
[2020-12-23] MEDS: 0.9% Saline Lock 10 ML Syringe IV (03:24)
[2020-12-23] MEDS: Insulin Lispro 100 UNIT/ML INSULN.PEN 20 UNIT SC (03:37)
[2020-12-23 03:46] LABS: Bedside Glucose 381 mg/dL (70-110)
[2020-12-23 03:47] LABS: Reflex Lactate? Y
[2020-12-23 04:21] LABS: Absolute Lymphocyte Count 2.96 X10^3/uL (0.83-4.51); Absolute Neutrophil Count 9.8 X10^3/uL (2.0-7.7); Basophil# 0.08 X10^3/uL; Basophil% 0.5 % (0-1); Eosinophils% 0.7 % (0-5); Hematocrit 36.8 % (37-47); Hemoglobin 12.4 g/dL (12.0-15.0); Lymphocyte # 2.96 X10^3/ul (0.83-4.51); Lymphocyte % 20.2 % (19-41); Mean Corp Hgb Conc 33.7 g/dL (32-36); Mean Corpuscular Hgb 30.2 pg (27.0-32.0); Mean Corpuscular Volume 89.8 fL (81-99); Mean Platelet Vol. 10.8 fl (6.2-12.0); Monocyte# 1.39 X10^3/uL; Monocyte% 9.5 % (0-10); NRBC Flagged by Analyzer 0 % (0-5); Neutrophil % 66.8 % (47-70); Platelet Count 270 K/mm3 (150-450); RBC Distribution Width CV 13.2 % (11.6-14.6); RBC Distribution Width SD 43.2 fl (35.1-43.9); White Blood Count 14.7 K/mm3 (4.4-11.0)
[2020-12-23] MEDS: 0.9% Normal Saline 1,000 ML 125 ML IV ×3 (04:28→20:11)
[2020-12-23 04:44] LABS: ALB/GLOB Ratio 0.9 RATIO (0.9-2.4); AST(SGOT) 18 U/L (15-37); Alanine Aminotransfer ALT/SGPT 42 U/L (13-56); Albumin, Serum 3.2 g/dL (3.2-5.0); Alkaline Phosphatase 92 U/L (45-117); Anion Gap 7 (5-15); BUN 17 mg/dL (7-18); BUN/Creat Ratio 19.1 RATIO (10-20); Chloride 105 mmol/L (98-107); Creatinine, Serum 0.89 mg/dL (0.55-1.02); EST Glomerular Filtration Rate 75 mL/min (>60); Est Glom Filt Rate - Afr Amer 91 mL/min (>60); Estimated Creatinine Clearance 67.12 ml/min; Globulin 3.7 g/dL (2.2-4.2); Glucose 383 mg/dL (74-106); Protein, Total 6.9 g/dL (6.4-8.2); Sodium Level 136 mmol/L (136-145)
[2020-12-23 04:46] LABS: Lactic Acid 1.6 mmol/L (0.4-1.9)
[2020-12-23] MEDS: Insulin Lispro 100 UNIT/ML INSULN.PEN SC ×4 (06:37→21:43)
[2020-12-23 06:55] LABS: Bedside Glucose 242 mg/dL (70-110)
[2020-12-23 08:28] LABS: Hemoglobin A1c 10.8 % (3.8-5.6)
[2020-12-23] MEDS: Tolterodine Tartrate 4 MG CAP.SA PO (09:30)
[2020-12-23] MEDS: Acetaminophen 325 MG Tablet 650 MG PO (09:30)
[2020-12-23] MEDS: Furosemide 40 MG Tablet PO (09:30)
[2020-12-23] MEDS: oxyCODONE 5 MG Tablet PO ×2 (09:31→20:08)
--- NOTE | 2020-12-23 11:00 | CASEMGMT ---
VERNON BENITEZ Assessment: RN CM to room to meet with patient for initial transition planning/care coordination assessment. VERNON BENITEZ introduced self and role at [facility]. Pt voices understanding and consents to assessment at this time. Pt resting in bed in no distress at this time. Pt is A/O at this time and answers all questions appropriately. Care providers, pharmacy, and demographics verified/updated at this time. PCP: [facility] Specialists: Choco, neurosurgeon; Santi, urology; Joselo, general surgery; Yogi, neuro. Cory Box changes her s/p cath monthly @ [facility]. Preferred Pharmacy: [facility] [employer] [facility] Prescription Benefit: yes LW/HPOA: Pt does not have a LW/DPOA and denies need for info on AD. LNOK: Jay Paiz, ; Kimberley Peñaloza, mother in law Living Arrangements: Pt lives in a two story house with 1 step to enter with her , father and step daughter. Pt states assists with ADL's as needed. Denies concerns at home. Transportation: Pt provides transportation. Denies concerns with transportation. DME: Pt has the following DME: motorized w/c, cane, walker, shower chair, rollator and w/c. SNF/HHC: Hx: HHC with [facility] and has been to [facility]. Pt states no concerns with going home at time of dc. She denies need for HHC. Pt states no further concerns/needs. VERNON BENITEZ to follow. Advised pt to ask CM if any further question/concerns/needs arise, voices understanding. Plan: Home Dylan SANDERS RN, CM
[2020-12-23 11:26] LABS: Bedside Glucose 250 mg/dL (70-110)
--- NOTE | 2020-12-23 12:24 | CASEMGMT ---
RN EMMANUEL NOTE: Pt qualifies for a Palliative referral per the [facility] palliative screening tool at this time. Per Palliative Care, they would be able to meet w/pt for counseling/support for anxiety/depression. Dr Cornejo aware and states ok for Palliative c/s at this time for counseling/support. Order placed. Palliative updated at this time. Face Sheet faxed to Palliative at this time. Dylan SANDERS RN CM
--- NOTE | 2020-12-23 16:06 | PCM.CONS.P ---
Assessment & Plan Assessment/Plan (1) Anxiety and depression: (2) Weakness: (3) Hyperglycemia: (4) Sepsis: QUALIFIERS: Sepsis acute organ dysfunction status: unspecified Sepsis type: sepsis due to unspecified organism Qualified Code(s): A41.9 - Sepsis, unspecified organism (5) Hyperlipidemia: QUALIFIERS: Hyperlipidemia type: unspecified Qualified Code(s): E78.5 - Hyperlipidemia, unspecified (6) Essential hypertension: (7) Type 2 diabetes mellitus with diabetic polyneuropathy: QUALIFIERS: Diabetes mellitus long-term insulin use: with neurourologist use Qualified Code(s): E11.42 - Type 2 diabetes mellitus with diabetic polyneuropathy; Z79.4 - penitentiary (current) use of insulin (8) Normochromic normocytic anemia: (9) Spina bifida aperta of lumbar spine: (10) Morbid obesity with BMI of 40.0-44.9, adult: PLAN: 40-year-old female with multiple comorbidities, history of spina bifida and neurogenic bladder with suprapubic catheter, recurrent UTIs, seen today for palliative care consultation for supportive care as an outpatient as well as counseling and assistance with treating anxiety and depression. 1. Anxiety and depression: Patient is on no home medications to treat anxiety or depression. States she has felt her anxiety is nonexistent and depression has been controlled for about the last 4 years. She declines any further treatment. She declines counseling. 2. Weakness: She is on disability, typically independent with ADLs at home. Denies any needs. 3. Uncontrolled type 2 diabetes mellitus with polyneuropathy/history of anemia/spina bifida/morbid obesity: Complicates overall care and prognosis. Advised close follow-up with her primary care and specialist. Thank you for the opportunity to participate in this patient's care, please do not hesitate to contact [facility] with any further questions or concerns. Palliative direct line is [phone]. Patient has declined services. I did give her contact information and she can reach out to us if she has any further questions or concerns. Greater than 50% of F2F visit dedicated to education and counseling of palliative care services, medications, comorbid conditions and potential assistance with management, and plan of care moving forward. Start time: 1534 End time: 1610 HPI Consult Data Date of Consult: 12/23/20 HPI Narrative HPI Narrative: HEBER BAILON, is a 40 F who presents to [facility] 12/23/2020 with complaints of abdominal pain. She has a history of spina bifida with neurogenic bladder and bowel. She is an uncontrolled diabetic. Patient has been having bladder and left flank pain for about 3 days and then developed lower left quadrant pain on the day of presentation. This pain started after having a bowel movement. Patient known to have frequent UTIs and has a suprapubic catheter, which was last changed about 2 weeks ago. She also was having some nausea and vomiting, no reported fevers or chills. She was admitted to the hospital for further evaluation and management. Urine came back positive for UTI. She has been treated with IV fluids and IV antibiotics. She was found to have an elevated white count and significant hyperglycemia. CT of abdomen/pelvis showed no evidence of acute intra-abdominal disease. There was hepatomegaly and hepatic steatosis. There was some thickening of the urinary bladder wall and the uterus had a lobular contour suggesting possible leiomyoma. She also has a nonobstructing calculus in the lower pole the right kidney measuring about 4 mm. Hemoglobin A1c is 10.8%. She did have some recent steroid injections. She is also noted to have a significant anxiety and depression with panic attacks. She is not currently taking any medications for this or following with outpatient counseling or psychiatry. Palliative care has been consulted for counseling and anxiety/depression. She would also benefit from supportive care. She was just admitted to the hospital in September 2020 for sepsis from pyelonephritis. She lives at home in a two-story house with 1 step to enter with her (Jay), father, and stepdaughter. Her assists her with ADLs as needed, otherwise she is independent at home. DME in the home include a motorized wheelchair, cane, walker, shower chair, Rollator, and wheelchair. She is previously stayed at [facility]. She uses [facility] in [place] for pharmacy. Also follows with Dr. Wilhelm, neurosurgery, Dr. Hancock for urology, Dr. Josue general surgery, and Dr. Calix for neurologist. Her primary care physician is Dr. Shukla. Patient reports she followed routinely at the [facility] ever since she was 19 years old, however stopped going about 4 years ago. Reports she was having some transportation issues and felt that she did not need any further care at that time. She did have multiple suicide attempts 13 to 14 years ago and spent some time on several occasions at [facility] in [place]. She has been on multiple different antidepressants, the only when she recognizes is Cymbalta. She cannot remember the other ones. At one point, she had to be put on dual therapy but that made her symptoms worse. She actually had a psychotic break on it. She is on disability. Complains of peripheral neuropathy. Also has some chronic low back pain which she takes Tylenol for. Patient feels she does not need any assistance at home and does not wish to return to counseling or have palliative care counseling and referral. Denies chest pain, shortness of breath, cough, fever, chills. No abdominal pain or nausea and vomiting. Urinating okay. Appetite is good. She is sitting up watching TV with no other complaints. Her significant other is at the bedside. [facility] Medical History (Updated 12/23/20 @ 16:27 by Geetha Driver NP-C) Anxiety and depression Arthritis Cellulitis of left lower extremity Chronic back pain Chronic nausea Constipation Delayed wound healing Diabetes mellitus, type II Diabetic ulcer of left heel with fat layer exposed DJD (degenerative joint disease) of thoracic spine Dysthymic disorder Essential hypertension Hematochezia History of kidney stones History of migraine Hydronephrosis of right kidney Hyperlipidemia Infection of bladder catheter Insomnia Lipomeningocele Lower extremity edema Morbid obesity with BMI of 40.0-44.9, adult Neurogenic bladder Neurogenic bowel Non-compliance Normochromic normocytic anemia Panic attacks PSVT (paroxysmal supraventricular tachycardia) Sepsis Spina bifida aperta of lumbar spine Thyroid cyst Type 2 diabetes mellitus with diabetic polyneuropathy Ulcer of left heel and midfoot with fat layer exposed Uninodular goiter UTI (urinary tract infection) UTI (urinary tract infection) Home Medications furosemide 20 mg PO DAILY@1700 08/28/18 [History Last Taken 12/22/20] furosemide 40 mg PO BREAKFAST 04/05/19 [History Last Taken 12/22/20] insulin glargine 100 unit/mL (3 mL) subcutaneous pen 33 unit SC QHS 11/01/19 [History Last Taken 12/21/20] lisinopril 2.5 mg tablet 2.5 mg PO DAILY 11/01/19 [History Last Taken 12/22/20] oxybutynin chloride 15 mg tablet,extended release 24 hr 15 mg PO DAILY 11/12/19 [History Last Taken 12/22/20] propranolol 10 mg PO BID 01/13/20 [History Last Taken 12/22/20] acetaminophen 1,000 mg PO TID PRN PRN 02/12/20 [History Last Taken 09/24/20 19:24] phenazopyridine 200 mg PO BID PRN PRN #10 tab 07/13/20 [Rx Last Taken 12/19/20] Allergy/AdvReac Type Severity Reaction Status Date / Time mushroom Allergy Anaphylaxis Verified 12/23/20 03:05 peanut Allergy Anaphylaxis Verified 12/23/20 03:05 Gadolinium-MRI Contrast AdvReac Vomiting Verified 12/23/20 03:05 Medium Latex, Natural Rubber AdvReac Rash Verified 12/23/20 03:05 Family History Mother CVA (cerebral vascular accident) Thyroid disorder Diabetes Hypertension Heart disease Hyperlipidemia Myocardial infarction, Onset Age: 54 mother had diabetes Father Cancer skin Grandmother Cancer liver Surgical History history insertion suprapubic catheter History of cholecystectomy History of dilation and curettage History of spinal surgery Hx of foot surgery Hx of ventral hernia repair S/P thyroid biopsy (~11/06/19) Status post gastric surgery Social History household members: significant other Smoking Status: Never smoker alcohol intake: current substance use type: does not use ROS ROS Narrative Review of systems otherwise negative from a constitutional, HEENT, respiratory, cardiovascular, GI, genitourinary, musculoskeletal, skin, neurologic, psychiatric and hematologic system unless stated above. Physical Exam Const alert, oriented x3 and no apparent distress General Appearance: cooperative and comfortable HEENT normocephalic and head/scalp atraumatic Neck supple General: trachea midline Resp normal respiratory effort Effort and Inspection: able to speak in complete sentences and symmetric chest movement Auscultation: clear to auscultation bilaterally Cardio regular rate, regular rhythm, S1 normal heart sound and S2 normal heart sound GI normal to inspection, nondistended, normoactive bowel sounds GI Narrative: obese Extremity normal to inspection General Extremity: edema bilateral (Nonpitting); Negative for clubbing or cyanosis Skin no rashes or lesions noted Neuro CN's II-XII intact bilaterally and no focal motor deficits Psych mental status grossly normal, denies hallucinations and denies suicidal ideation Appearance: appropriate Attitude: calm and engaged Activity / Motor Behavior: appropriate eye contact Memory / Cognition: memory grossly intact Insight: insight good Judgement: judgement good
[2020-12-23] MEDS: Furosemide 20 MG Tablet PO (16:35)
[2020-12-23 16:40] LABS: Bedside Glucose 277 mg/dL (70-110)
--- NOTE | 2020-12-23 16:47 | PCM.HOSP.N ---
Hospitalist Note Patient was seen and examined. 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 No fever hypotension or tachypnea but lactic acid was 2.2 which repeat was normal. With that lactic acid she qualifies severe sepsis most probably secondary to UTI. She has suprapubic catheter and catheter gets changed every month by [facility] urologist. She follows local urologist and [facility] urologist. UA shows LE 100, WBC 5-10 cells nitrite positive. Blood and urine culture pending. Patient also had complain of left lower quadrant abdominal pain. CT abdomen pelvis shows no evidence of intraabdominal disease. Patient has hepatomegaly and hepatic acidosis. Thickening of urinary bladder wall. Patient is a spina bifida since . She has limited mobility on motorized wheelchair and hardly walks from her bedroom to the bathroom. She also has a walker, shower chair, Rollator and wheelchair. She follows Dr. Hancock for urology. Blood culture urine culture pending. A1c 10.8. Laboratory Results 12/22/20 23:55: Urine Color Yellow, Urine Clarity Clear, Urine pH 6.0, Ur Specific [place] 1.010, Urine Protein 15 H, Urine Glucose (UA) 1000 H, Urine Ketones Negative, Urine Occult Blood 25 H, Urine Nitrite Positive H, Urine Bilirubin Negative, Urine Urobilinogen Normal, Ur Leukocyte Esterase 100 H, Urine RBC 0-5 SEEN, Urine WBC 5-10 SEEN, Ur Squamous Epith Cells 0 SEEN, Urine Bacteria 1+, Urine Mucus 0 SEEN, Urine Test Negative 12/23/20 03:36: POC Glucose 381 H 12/23/20 04:12: WBC 14.7 H, RBC 4.10 L, Hgb 12.4, Hct 36.8 L, MCV 89.8, MCH 30.2, MCHC 33.7, RDW Std Deviation 43.2, RDW Coeff of Claude 13.2, Plt Count 270, MPV 10.8, Immature Gran % (Auto) 2.300 H, Neut % (Auto) 66.8, Lymph % (Auto) 20.2, [place] % (Auto) 9.5, Eos % (Auto) 0.7, Baso % (Auto) 0.5, Absolute Neuts (auto) 9.8 H, Absolute Lymphs (auto) 2.96, Nucleated RBC % 0 12/23/20 04:12: Sodium 136, Potassium 4.0, Chloride 105, Carbon Dioxide 24.0, Anion Gap 7, BUN 17, Creatinine 0.89, Estim Creat Clear Calc 67.12, Est GFR (MDRD) Af Amer 91, Est GFR (MDRD) Non-Af 75, BUN/Creatinine Ratio 19.1, Glucose 383 H, Calcium 8.0 L, Total Bilirubin 0.30, AST 18, ALT 42, Alkaline Phosphatase 92, Total Protein 6.9, Albumin 3.2, Globulin 3.7, Albumin/Globulin Ratio 0.9 12/23/20 04:12: Hemoglobin A1c 10.8 H 12/23/20 04:12: Lactic Acid 1.6 12/23/20 06:36: POC Glucose 242 H 12/23/20 11:08: POC Glucose 250 H 12/23/20 16:33: POC Glucose 277 H
[2020-12-23] MEDS: Propranolol 10 MG Tablet PO (21:41)
[2020-12-23 22:11] LABS: Bedside Glucose 342 mg/dL (70-110)
[2020-12-24 03:00] VITALS: PULSE 56
[2020-12-24] MEDS: 0.9% Normal Saline 1,000 ML 125 ML IV ×2 (03:25→11:26)
[2020-12-24 03:43] VITALS: BP 112/60; PULSE 55; RESP 16; TEMP 36.8; O2SAT 95
[2020-12-24] MEDS: Insulin Lispro 100 UNIT/ML INSULN.PEN SC ×2 (06:50→11:25)
[2020-12-24 06:55] LABS: Bedside Glucose 233 mg/dL (70-110)
[2020-12-24 07:00] VITALS: PULSE 52
[2020-12-24 07:37] VITALS: O2SAT 96
[2020-12-24 09:20] VITALS: BP 121/73; PULSE 55; RESP 18; TEMP 36.6; O2SAT 97
[2020-12-24] MEDS: Furosemide 40 MG Tablet PO (09:21)
[2020-12-24] MEDS: Lisinopril 2.5 MG Tablet PO (09:21)
[2020-12-24] MEDS: Tolterodine Tartrate 4 MG CAP.SA PO (09:21)
[2020-12-24] MEDS: Morphine 2 MG/ML Syringe IV (09:23)
[2020-12-24 11:35] LABS: Bedside Glucose 320 mg/dL (70-110)
--- NOTE | 2020-12-24 11:55 | DCINST_ITS ---
Discharge Instructions Diet Discharge Diet: Low fat / Low cholesterol, 1800 Calorie Control Diet and 2000 mg Sodium Diet Activity Discharge Activity: May Not Drive and Use Walker Weight Bearing Status: Weight bearing as tolerated Dressing / Incision Call your doctor if you observe: Fever of 101 or Higher, Coldness, Increased Pain, Numbness or Tingling, Change in Color, Inability to urinate, Inability to have a bowel movement, Shortness of breath, Dizziness, Fainting spells, Swelling in the ankles, Chest pain, Prolonged hiccupping, Increased palpitations (irregular heartbeat), Calf discomfort and Uncontrolled pain Follow Up Care Test Results: Test results from this visit will be discussed in further detail at your follow-up appointment, if applicable. Discharge Plan Admission Admit Date/Time: 12/23/20 02:10 Primary Reason for Your Visit: Complicated cystitis CAUTI Attending Provider: Mason Cornejo Primary Care Provider: Will Shukla Discharge Orders/Prescriptions Prescriptions: New ciprofloxacin HCl [Cipro] 500 mg tablet 500 mg PO BID Qty: 10 RF: 0 Continued Lantus Solostar U-100 Insulin 100 unit/mL (3 mL) insulin pen 33 unit SC QHS RF: 0 lisinopril 2.5 mg tablet 2.5 mg PO DAILY RF: 0 furosemide 20 MG tablet 20 mg PO DAILY@1700 RF: 0 furosemide 40 MG tablet 40 mg PO BREAKFAST RF: 0 oxybutynin chloride 15 mg tablet extended release 24hr 15 mg PO DAILY RF: 0 propranolol 10 MG tablet 10 mg PO BID RF: 0 acetaminophen 500 MG tablet 1,000 mg PO TID PRN PRN (Reason: Pain Or Fever) RF: 0 phenazopyridine 200 MG tablet 200 mg PO BID PRN PRN (Reason: Pain) Qty: 10 RF: 0 Referrals / Follow Up: Will Shukla MD [Primary Care Provider] - (Please call to setup an appointment. ) Disposition Disposition (needs filled in before D/C Order can be placed): [facility]
--- NOTE | 2020-12-24 11:55 | DS.PCM_ITS ---
Providers Date of Admission: 12/23/20 Date of Discharge: 12/24/20 Primary Care Physician: Dr. Will Shukla MD Reason For Visit: SEVERE SEPSIS UTI Diagnosis Discharge Diagnosis (1) Anxiety and depression: Status: Chronic Code(s): F41.9 - Anxiety disorder, unspecified; F32.9 - Major depressive disorder, single episode, unspecified (2) Weakness: Status: Acute Code(s): R53.1 - Weakness (3) Hyperglycemia: Status: Acute Code(s): R73.9 - Hyperglycemia, unspecified (4) Sepsis: Status: Acute Code(s): A41.9 - Sepsis, unspecified organism Qualifiers: Sepsis acute organ dysfunction status: unspecified Sepsis type: sepsis due to unspecified organism Qualified Code(s): A41.9 - Sepsis, unspecified organism (5) Hyperlipidemia: Status: Chronic Code(s): E78.5 - Hyperlipidemia, unspecified Qualifiers: Hyperlipidemia type: unspecified Qualified Code(s): E78.5 - Hyperlipidemia, unspecified (6) Essential hypertension: Status: Chronic Code(s): I10 - Essential (primary) hypertension (7) Type 2 diabetes mellitus with diabetic polyneuropathy: Status: Chronic Code(s): E11.42 - Type 2 diabetes mellitus with diabetic polyneuropathy Qualifiers: Diabetes mellitus ocean transportation intermediary insulin use: with skilled nursing use Qualified Code(s): E11.42 - Type 2 diabetes mellitus with diabetic polyneuropathy; Z79.4 - care home (current) use of insulin (8) Normochromic normocytic anemia: Status: Chronic Code(s): D64.9 - Anemia, unspecified (9) Spina bifida aperta of lumbar spine: Status: Chronic Code(s): Q05.7 - Lumbar spina bifida without hydrocephalus (10) Morbid obesity with BMI of 40.0-44.9, adult: Status: Chronic Code(s): E66.01 - Morbid (severe) obesity due to excess calories; Z68.41 - Body mass index [BMI]40.0-44.9, adult Medications at Discharge Home Medications furosemide 20 mg PO DAILY@1700 08/28/18 furosemide 40 mg PO BREAKFAST 04/05/19 insulin glargine 100 unit/mL (3 mL) subcutaneous pen 33 unit SC Q 11/01/19 lisinopril 2.5 mg tablet 2.5 mg PO DAILY 11/01/19 oxybutynin chloride 15 mg tablet,extended release 24 hr 15 mg PO DAILY 11/12/19 propranolol 10 mg PO BID 01/13/20 acetaminophen 1,000 mg PO TID PRN PRN 02/12/20 phenazopyridine 200 mg PO BID PRN PRN #10 tab 07/13/20 ciprofloxacin HCl [Cipro] 500 mg PO BID #10 tab 12/24/20 Hospital Course Summary of Care Provided Hospital Course: This 40-year-old female with multiple comorbidities including spina bifida involving L3-4 and 5 segments with limited mobility motorized scooter was admitted for worsening suprapubic discomfort for last 3 days along with left lower quadrant pain. CT abdomen was done which showed no intra- abdominal disease, hepatomegaly with hepatic steatosis, mild bladder wall thickening supra catheter in place. UA shows LE 100, WBC 5-10 cells nitrite positive. Blood and urine culture pending. Patient was admitted with a diagnosis of severe sepsis with lactic acidosis from CAUTI complicated UTI/cystitis. Patient is started on broad-spectrum IV cefepime. Preliminary urine culture shows more than 100,000 gram-negative sue probably nonlactose prism inspector as per microbiology lab. Patient is not allergic to Cipro. She is discharged on Cipro 500 mg twice daily to complete a total of 7 days of antibiotics. Patient has multiple other comorbidities which include diabetes mellitus type 2, arthritis, history of kidney stones, migraine hydronephrosis of right kidney, recurrent UTI, hypertension, limited mobility. Advised to follow-up with [facility] urologist Dr. Hancock PCP in 1 week. Discharge medication reconciliation done. Discharge follow-up instructions completed. Discharge process discussed with the patient and all questions were answered to patient's satisfaction. Patient was admitted as inpatient but was discharged because of sooner recovery than expected at time of admission. Total time spent, exact 35 minutes on discharge meds reconciliation, examination, coordination of care with nurses and ancillary staff, review of imaging and blood test and discussion with the patient on follow-up instructions Discharge diagnosis: Severe sepsis with lactic acidosis from CAUTI complicated UTI/cystitis. Clinical Impression(s) from Imaging Studies Abdomen/Pelvis CT 12/23/20 00:25 IMPRESSION: 1. No CT evidence of acute intra-abdominal disease. 2. Hepatomegaly and hepatic steatosis. Electronically Signed: Sandra Blunt MD at 1:42 EDT , Service support , Physical Exam Narrative Patient follows local urologist Dr Box, in [place] and Dr. Kilgore [facility]. She gets regular suprapubic catheter changed every month. Denies renal angle pain. Physical exam General: Alert, Oriented x3, Cooperative HEENT: Atraumatic, PERRLA, EOMI, Normocephalic Oral: No Gingival or Mucosal Lesions/ Ulcerations Neck: Supple, No JVD, Negative Carotid Bruits Lungs: Air entry diminished in bilateral lung bases. No crepitation/rhonchi Cardiovascular: Regular rate, Regular Rhythm, Normal S1, Normal S2, No murmurs Abdomen: Bowel Sounds Present, Soft, Non Tender, Non-Distended : Suprapubic catheter, changed on 12/12, it gets changed every month. No renal angle tenderness. No suprapubic tenderness. Extremities: Nonpitting bilateral legs edema, Capillary Refill Less than 3 Seconds Skin: No rashes, No breakdown Musculoskeletal: Spina bifida. Weakness of left leg at knee and hip compared to right leg. Power 4/5 at major joints. Ambulates on walker and motorized scooter Neurological: Cranial nerves II-XII grossly intact, Deep Tendon Reflexes 2+/4 and Symmetrical, Neuro grossly intact Psych/Mental Status: Normal Affect, Appropriate. Medical Records Data Medical Nutrition Assessment Dietitian: Nutrition Therapy Diagnosis Start: 12/23/20 16:07 Freq: Status: Active Protocol: Document 12/23/20 16:07 RMA (Rec: 12/23/20 16:08 RMA [id number]) Nutrition Malnutrition Evidence of Malnutrition Exists No Clinical Problem Altered Nutrient-Related Laboratory Values Etiology r/t endocrine dysfunction and acute illness Signs/Symptoms as evidenced by HgbA1c 10.8, glucose 383, and POC glucose 381 and 242. Status Active Problem Recommendation Dietitian Recommendations/Changes Continue cardiac 1800 calorie diet. ONS not indicated at this time . Will offer if intake declines at meals. Diet instruction provided today; further diet education as pt willing; encouraged to call RD as needed. Weight / BMI Weight Weight: 222 lb 7.143 oz Body Mass Index (BMI) 40.1 ABG / Lab / Microbiology Data Result Diagrams: 12/23/20 04:12 12/23/20 04:12 Laboratory: Laboratory Results - last 24 hr 12/23/20 16:33: POC Glucose 277 H 12/23/20 21:37: POC Glucose 342 H 12/24/20 06:44: POC Glucose 233 H 12/24/20 11:24: POC Glucose 320 H Microbiology: Microbiology 12/22/20 23:55 Urine Catheter - Morales Urine Culture - Preliminary Gram negative sue Gram negative sue#2 Meaningful Use Info Meaningful Use Diagnoses (Choose all that apply): None applicable Discharge Plan Admission Admit Date/Time: 12/23/20 02:10 Primary Reason for Your Visit: Complicated cystitis CAUTI Attending Provider: Mason Cornejo Primary Care Provider: Will Shukla Discharge Orders/Prescriptions Prescriptions: New ciprofloxacin HCl [Cipro] 500 mg tablet 500 mg PO BID Qty: 10 RF: 0 Continued Lantus Solostar U-100 Insulin 100 unit/mL (3 mL) insulin pen 33 unit SC QHS RF: 0 lisinopril 2.5 mg tablet 2.5 mg PO DAILY RF: 0 furosemide 20 MG tablet 20 mg PO DAILY@1700 RF: 0 furosemide 40 MG tablet 40 mg PO BREAKFAST RF: 0 oxybutynin chloride 15 mg tablet extended release 24hr 15 mg PO DAILY RF: 0 propranolol 10 MG tablet 10 mg PO BID RF: 0 acetaminophen 500 MG tablet 1,000 mg PO TID PRN PRN (Reason: Pain Or Fever) RF: 0 phenazopyridine 200 MG tablet 200 mg PO BID PRN PRN (Reason: Pain) Qty: 10 RF: 0 Referrals / Follow Up: Will Shukla MD [Primary Care Provider] - (Please call to setup an appointment. ) Disposition Disposition (needs filled in before D/C Order can be placed): Home Health Service Charges/Coding Visit Charges Inpatient E&M: 71610 Disch Hosp
[2020-12-24 13:55] VITALS: BP 113/66; PULSE 57; RESP 16; TEMP 36.4; O2SAT 97
--- NOTE | 2020-12-25 15:45 | CASEMGMT ---
VERNON BENITEZ Discharge Follow-Up Phone Call. Gissel: Elisabeth Strata: 3 Discharge Date: 12/24/20 Adm Dx: Severe Sepsis, UTI Call to pt to inquire about how he has been doing since being discharged from the hospital. Pt states she feels the infection is starting to improve, but she is still in a lot of pain. She states she has been taking the ES Tylenol. VERNON BENITEZ instructed to not take more than 2 tabs Q 6 hrs so she doesn't exceed max amt of acetaminophen in 24/hr period. She states it is not helping the pain much, but that this is pretty typical to her norm when she has a UTI. She states it usually takes about a week of atb's before the pain starts improving. VERNON BENITEZ advised her to talk to her PCP for further pain management if needed or to return to the ER if the pain worsens/becomes intolerable. She voices understanding. She did get the Cipro from [facility] and has been taking it as prescribed. She denies having any questions about the medications or discharge instructions. She has not made a f/u appt w/Dr Shukla yet, but she knows she needs to do this. Dylan SANDERS RN, CM ??
== END 2020-12-24 15:33 | disposition home health service (06) | DRG 698 ==
LOC: ED 12-23 02:00 → PCU 12-23 02:11
PROVIDERS: Admitting Provider Family Medicine; Emergency Provider Emergency Medicine; PCP Family Medicine; Visit Provider Internal Medicine
DX: T83.518A Infection and inflammatory reaction due to other urinary catheter, initial encounter (principal); A41.9 Sepsis, unspecified organism; R65.20 Severe sepsis without septic shock; N13.6 Pyonephrosis; K59.2 Neurogenic bowel, not elsewhere classified; E87.2 Acidosis; Z68.41 Body mass index [BMI] 40.0-44.9, adult; L97.422 Non-pressure chronic ulcer of left heel and midfoot with fat layer exposed; E11.621 Type 2 diabetes mellitus with foot ulcer; E11.42 Type 2 diabetes mellitus with diabetic polyneuropathy; Y84.6 Urinary catheterization as the cause of abnormal reaction of the patient, or of later complication, without mention of misadventure at the time of the procedure; Q05.7 Lumbar spina bifida without hydrocephalus; N31.9 Neuromuscular dysfunction of bladder, unspecified; E66.01 Morbid (severe) obesity due to excess calories; E78.5 Hyperlipidemia, unspecified; I10 Essential (primary) hypertension; K64.9 Unspecified hemorrhoids; Z91.19 Patient's noncompliance with other medical treatment and regimen; Z79.899 Other long term (current) drug therapy; Z79.4 Long term (current) use of insulin; Z87.442 Personal history of urinary calculi; D64.9 Anemia, unspecified; E04.1 Nontoxic single thyroid nodule; E11.65 Type 2 diabetes mellitus with hyperglycemia; G47.00 Insomnia, unspecified; I25.2 Old myocardial infarction; K59.00 Constipation, unspecified; K76.0 Fatty (change of) liver, not elsewhere classified; Z82.3 Family history of stroke; Z83.3 Family history of diabetes mellitus; Z90.49 Acquired absence of other specified parts of digestive tract; Z91.010 Allergy to peanuts; Z87.440 Personal history of urinary (tract) infections; F41.9 Anxiety disorder, unspecified; F32.9 Major depressive disorder, single episode, unspecified
CPT/HCPCS: 36415; 74177; 80053; 81001; 81025; 82962; 83036; 83605; 83690; 85025; 87040; 87077; 87086; 87088; 87186; 99284; J7030; Q9967; A4216; J2405

== ENCOUNTER 2021-01-19 22:59 | Inpatient (IN) | payer MEDICARE, MEDICAID, SELFPAY ==
[2021-01-19 22:59] VITALS: BP 135/88; PULSE 90; RESP 16; TEMP 35.8; O2SAT 97; BMI 41.1
[2021-01-20] VITALS (7 sets, daily range): BP systolic 102–141; BP diastolic 63–88; PULSE 58–84; RESP 15–18; TEMP 36.3–37.2; O2SAT 96–98; BMI 41.8
[2021-01-20 00:02] LABS: Mucous, Urine 0 SEEN /hpf (<or=2+)
[2021-01-20 00:07] LABS: Color, Urine Yellow (Yellow); Glucose, Dipstick 1000 mg/dl (Normal); Ketone-Dipstick Negative (Negative); Leukocyte Esterase-Dipstick 500 /ul (Negative); Nitrite-Dipstick Positive (Negative); Occult Blood-Urine 50 /ul (Negative); Protein-Dipstick 100 mg/dl (Negative); Specific Gravity, Urine 1.015 (1.002-1.030); Urine Bilirubin Dipstick Negative (Negative); Urine Clarity Cloudy (Clear); Urine Urobilinogen Normal (Normal)
[2021-01-20 00:12] LABS: Internal QC Validated? YES +Cl - CLEAR BKGD; Pregnancy, Urine Negative Negative
[2021-01-20 00:15] LABS: Bacteria 4+ /hpf (None Seen)
[2021-01-20 00:16] LABS: Amorphous Sediment 1+; Red Blood Cells-Urine 0-5 SEEN /hpf (0-5); Squamous Epithelial Cells - UA 0-5 SEEN /hpf (5-10); White Blood Cells >100 SEEN /hpf (0-5)
--- NOTE | 2021-01-20 00:29 | ED.VIS.FEGU ---
HPI HPI - Female History of Present Illness Chief Complaint: Complaint Informant: patient Narrative Narrative: Patient presents with UTI symptoms. This patient has a history of spina bifida with multiple spinal surgeries. She has had suprapubic catheter for 2 years. She is also diabetic. She is on both short and long-acting insulins although they are not on her med list. She states she gets not infrequent UTIs. Her last 1 was about a month ago when she was admitted. She feels that this is consistent with a UTI again. The urine is gotten cloudier. She is now getting pain in her right flank. She states she has had kidney stones but this does not feel the same. She has had nausea but no vomiting. She has not had fevers yet. Nothing makes her symptoms better or worse. 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 Dysthymic disorder Essential hypertension Hematochezia History of kidney stones History of migraine Hydronephrosis of right kidney Hyperglycemia Hyperlipidemia Infection of bladder catheter Insomnia Lipomeningocele Lower extremity edema Morbid obesity with BMI of 40.0-44.9, adult Neurogenic bladder Neurogenic bowel Non-compliance Non-smoker Normochromic normocytic anemia Panic attacks PSVT (paroxysmal supraventricular tachycardia) Sepsis Sepsis Spina bifida aperta of lumbar spine Thyroid cyst Type 2 diabetes mellitus with diabetic polyneuropathy Ulcer of left heel and midfoot with fat layer exposed Uninodular goiter Urinary tract infection UTI (urinary tract infection) UTI (urinary tract infection) Weakness Home Medications furosemide 20 mg PO DAILY@1700 08/28/18 [History Last Taken 12/22/20] furosemide 40 mg PO BREAKFAST 04/05/19 [History Last Taken 12/22/20] insulin glargine 100 unit/mL (3 mL) subcutaneous pen 33 unit SC QHS 11/01/19 [History Last Taken 12/21/20] lisinopril 2.5 mg tablet 2.5 mg PO DAILY 11/01/19 [History Last Taken 12/22/20] oxybutynin chloride 15 mg tablet,extended release 24 hr 15 mg PO DAILY 11/12/19 [History Last Taken 12/22/20] propranolol 10 mg PO BID 01/13/20 [History Last Taken 12/22/20] acetaminophen 1,000 mg PO TID PRN PRN 02/12/20 [History Last Taken 09/24/20 19:24] phenazopyridine 200 mg PO BID PRN PRN #10 tab 07/13/20 [Rx Last Taken 12/19/20] trazodone 100 mg PO QHS 01/19/21 [History Last Taken Unknown] Allergy/AdvReac Type Severity Reaction Status Date / Time mushroom Allergy Anaphylaxis Verified 01/19/21 23:02 peanut Allergy Anaphylaxis Verified 01/19/21 23:02 Gadolinium-MRI Contrast AdvReac Vomiting Verified 01/19/21 23:02 Medium Latex, Natural Rubber AdvReac Rash Verified 01/19/21 23:02 Family History Mother CVA (cerebral vascular accident) Thyroid disorder Diabetes Hypertension Heart disease Hyperlipidemia Myocardial infarction, Onset Age: 54 mother had diabetes Father Cancer skin Grandmother Cancer liver Surgical History history insertion suprapubic catheter History of cholecystectomy History of dilation and curettage History of spinal surgery Hx of foot surgery Hx of ventral hernia repair S/P thyroid biopsy (~11/06/19) Status post gastric surgery Social History household members: significant other Smoking Status: Never smoker alcohol intake: current substance use type: does not use ROS ROS ED Constitutional Constitutional ED: Denies fever(s) Eyes Eyes: Denies blurry vision ENT ENT ED: Denies rhinorrhea Cardiovascular Cardiovascular: Denies chest pain or palpitations Respiratory/Chest Respiratory/Chest: Denies cough or dyspnea Gastrointestinal Gastrointestinal: Reports nausea; Denies vomiting Genitourinary Genitourinary ED: Reports other Details: See history of present illness. Musculoskeletal Musculoskeletal: Denies myalgias Integumentary Denies rash Neurologic Neurologic: Denies headache(s), paresthesias or weakness Endocrine Endocrinology: Denies polydipsia or polyuria Hematologic/Lymphatic Hematologic/Lymphatic: Denies easy bleeding or easy bruising Allergic/Immunologic Allergic/Immunologic ED: Denies urticaria EXAM Physical Exam Const Vital Signs: 01/19/21 22:59 01/20/21 00:59 01/20/21 01:17 Temperature 96.4 F L 97.3 F L Temperature Source Temporal Temporal Pulse Rate 90 84 Respiratory Rate 16 18 15 Blood Pressure 135/88 H 135/88 H Blood Pressure Mean 103 103 Pulse Ox 97 98 98 Oxygen Delivery Method Room Air Room Air Room Air Positive well nourished and well developed General Appearance ED: well developed HEENT Reports dry mucous membranes Mouth ED: Yes dry mucous membranes Mouth: dry mucous membranes Eyes PERRL Neck supple and no JVD Resp normal respiratory effort and clear to auscultation bilaterally Cardio regular rate and regular rhythm Rate: Negative for tachycardic GI normal to inspection, nondistended, normoactive bowel sounds, soft to palpation, non-tender and non-distended GI Narrative: Patient has a relatively clean appearing super catheter in place. Although the abdomen itself is benign. There is some pressure with palpation over the bladder and suprapubic catheter area. No sign of skin infection. Narrative: Patient does have some right CVA tenderness. Back/Spine no CVA tenderness Extremity normal to inspection Neuro oriented x3 Sensorium / Orientation: alert Psych mental status grossly normal Skin no rashes or lesions noted MDM MDM MDM Narrative Medical decision making narrative: Patient does have a mild elevation of her white count. Lactate was mildly elevated. Urine showed leukocyte esterase large number white cells and nitrites all consistent with infection. With her nausea, complex history, diabetes, elevated lactate she is admitted. There was no sign of DKA. Lab Data Attestation: I reviewed the patient's lab results. Labs: Laboratory Results - last 24 hr 01/19/21 01/20/21 01/20/21 23:55 00:45 00:45 WBC 11.1 H RBC 4.67 Hgb 14.0 Hct 42.3 MCV 90.6 MCH 30.0 MCHC 33.1 RDW Std Deviation 44.6 H RDW Coeff of Claude 13.2 Plt Count 250 MPV 10.9 Immature Gran % (Auto) 1.300 H Neut % (Auto) 58.7 Lymph % (Auto) 28.3 [place] % (Auto) 8.6 Eos % (Auto) 2.3 Baso % (Auto) 0.8 Absolute Neuts (auto) 6.5 Absolute Lymphs (auto) 3.14 Nucleated RBC % 0 Sodium 137 Potassium 4.0 Chloride 104 Carbon Dioxide 27.0 Anion Gap 6 BUN 9 Creatinine 0.96 Estim Creat Clear Calc 62.23 Est GFR (MDRD) Af Amer 83 Est GFR (MDRD) Non-Af 69 BUN/Creatinine Ratio 9.4 L Glucose 258 H Lactic Acid Calcium 9.2 Urine Color Yellow Urine Clarity Cloudy Urine pH 6.0 Ur Specific [place] 1.015 Urine Protein 100 H Urine Glucose (UA) 1000 H Urine Ketones Negative Urine Occult Blood 50 H Urine Nitrite Positive H Urine Bilirubin Negative Urine Urobilinogen Normal Ur Leukocyte Esterase 500 H Urine RBC 0-5 SEEN Urine WBC >100 SEEN Ur Squamous Epith Cells 0-5 SEEN Amorphous Sediment 1+ Urine Bacteria 4+ Urine Mucus 0 SEEN Urine Test Negative Acetone Level 01/20/21 01/20/21 00:45 00:45 WBC RBC Hgb Hct MCV MCH MCHC RDW Std Deviation RDW Coeff of Claude Plt Count MPV Immature Gran % (Auto) Neut % (Auto) Lymph % (Auto) [place] % (Auto) Eos % (Auto) Baso % (Auto) Absolute Neuts (auto) Absolute Lymphs (auto) Nucleated RBC % Sodium Potassium Chloride Carbon Dioxide Anion Gap BUN Creatinine Estim Creat Clear Calc Est GFR (MDRD) Af Amer Est GFR (MDRD) Non-Af BUN/Creatinine Ratio Glucose Lactic Acid 2.1 H* Calcium Urine Color Urine Clarity Urine pH Ur Specific [place] Urine Protein Urine Glucose (UA) Urine Ketones Urine Occult Blood Urine Nitrite Urine Bilirubin Urine Urobilinogen Ur Leukocyte Esterase Urine RBC Urine WBC Ur Squamous Epith Cells Amorphous Sediment Urine Bacteria Urine Mucus Urine Test Acetone Level NEGATIVE Discharge Plan Dx/Rx/DC Orders Clinical Impression: Pyelonephritis Disposition Disposition: Acute Care Hospital [facility] Discharge Date/Time: 01/20/21 01:56
[2021-01-20] MEDS: 0.9% Normal Saline 1,000 ML 1000 ML IV (00:45)
[2021-01-20] MEDS: Morphine 4 MG/ML Syringe IV (00:45)
[2021-01-20] MEDS: Ondansetron 4 MG/2 ML Vial IV (00:45)
[2021-01-20 00:58] LABS: Absolute Lymphocyte Count 3.14 X10^3/uL (0.83-4.51); Absolute Neutrophil Count 6.5 X10^3/uL (2.0-7.7); Basophil# 0.09 X10^3/uL; Basophil% 0.8 % (0-1); Eosinophil# 0.25 X10^3/uL; Eosinophils% 2.3 % (0-5); Hematocrit 42.3 % (37-47); Lymphocyte # 3.14 X10^3/ul (0.83-4.51); Lymphocyte % 28.3 % (19-41); Mean Corp Hgb Conc 33.1 g/dL (32-36); Mean Corpuscular Volume 90.6 fL (81-99); Mean Platelet Vol. 10.9 fl (6.2-12.0); Monocyte# 0.95 X10^3/uL; Monocyte% 8.6 % (0-10); NRBC Flagged by Analyzer 0 % (0-5); Neutrophil # 6.54 X10^3/uL (2.7-7.7); Neutrophil % 58.7 % (47-70); Platelet Count 250 K/mm3 (150-450); RBC Distribution Width CV 13.2 % (11.6-14.6); RBC Distribution Width SD 44.6 fl (35.1-43.9); Red Blood Count 4.67 M/mm3 (4.2-5.4); White Blood Count 11.1 K/mm3 (4.4-11.0)
[2021-01-20] MEDS: Ceftriaxone 1 GM/50 ML BAG IV (01:11)
[2021-01-20 01:15] LABS: Anion Gap 6 (5-15); BUN 9 mg/dL (7-18); BUN/Creat Ratio 9.4 RATIO (10-20); Calcium,Total 9.2 mg/dL (8.5-10.1); Chloride 104 mmol/L (98-107); Creatinine, Serum 0.96 mg/dL (0.55-1.02); EST Glomerular Filtration Rate 69 mL/min (>60); Est Glom Filt Rate - Afr Amer 83 mL/min (>60); Estimated Creatinine Clearance 62.23 ml/min; Glucose 258 mg/dL (74-106); Sodium Level 137 mmol/L (136-145)
[2021-01-20 01:30] LABS: Lactic Acid 2.1 mmol/L (0.4-1.9)
--- NOTE | 2021-01-20 01:34 | HP.PCM.HOS_ITS ---
HPI - General General Date of Admission: 01/20/21 Date of Service: 01/20/21 Chief Complaint: Suprapubic pain, transient retention HPI Narrative The patient is a 40 y/o F w/ PMHx: Anxiety and Depression/Panic attacks, Chronic normocytic anemia, Spina Bifida with neurogenic bowels and bladder with suprapubic catheter, Diabetes mellitus type II, Morbid Obesity, HTN, HLD, most recently admitted 12/23/20 with acute UTI, discharged on 7 day course of cipro who now re-presents to the [facility] ED on 01/20/21 with history approximately 3 to 4- day prior of onset suprapubic discomfort, dark appearing urine and sensation that she was retaining with infrequent output from her catheter although this seemed to normalize until she sneezed on day prior to ED presentation with sudden pop sensation and following this she noted that the urine output in the catheter increased with ongoing suprapubic discomfort prompting eventual ED presentation. She does note that from recent admission she did complete her course of ciprofloxacin. In the ED she does have a foul appearing disheveled dressing over the suprapubic region and she notes it was changed the day prior. Work-up in the ED included T 97.3, heart rate 84, BP 135/88, respiratory rate 15, 98% room air, CBC with WBC 11.1, hemoglobin 14, platelet 250 with increased immature granulocytes otherwise no marked shift, BMP with glucose 258, lactic acid 2.1, urinalysis significant with cloudy appearance, specific cavity 1.015, protein 100, glucose 1000, negative ketone, 50 occult blood, positive nitrite, 500 leukocyte esterase, urine WBCs greater than 100, urine RBC 0-5, urine bacteria 4+, negative testing, negative acetone, blood culture x2 pending per ED, urine culture pending per ED. In the ED Covid lab pending upon admission. ED physician administered patient IV Rocephin. [facility] Medical History Anxiety and depression Arthritis Cellulitis of left lower extremity Chronic back pain Chronic nausea Constipation Delayed wound healing Diabetes mellitus, type II Diabetic ulcer of left heel with fat layer exposed DJD (degenerative joint disease) of thoracic spine Dysthymic disorder Essential hypertension Hematochezia History of kidney stones History of migraine Hydronephrosis of right kidney Hyperglycemia Hyperlipidemia Infection of bladder catheter Insomnia Lipomeningocele Lower extremity edema Morbid obesity with BMI of 40.0-44.9, adult Neurogenic bladder Neurogenic bowel Non-compliance Normochromic normocytic anemia Panic attacks PSVT (paroxysmal supraventricular tachycardia) Sepsis Sepsis Spina bifida aperta of lumbar spine Thyroid cyst Type 2 diabetes mellitus with diabetic polyneuropathy Ulcer of left heel and midfoot with fat layer exposed Uninodular goiter Urinary tract infection UTI (urinary tract infection) UTI (urinary tract infection) Weakness Home Medications furosemide 20 mg PO DAILY@1700 08/28/18 [History Last Taken 12/22/20] furosemide 40 mg PO BREAKFAST 04/05/19 [History Last Taken 12/22/20] insulin glargine 100 unit/mL (3 mL) subcutaneous pen 33 unit SC QHS 11/01/19 [History Last Taken 12/21/20] lisinopril 2.5 mg tablet 2.5 mg PO DAILY 11/01/19 [History Last Taken 12/22/20] oxybutynin chloride 15 mg tablet,extended release 24 hr 15 mg PO DAILY 11/12/19 [History Last Taken 12/22/20] propranolol 10 mg PO BID 01/13/20 [History Last Taken 12/22/20] acetaminophen 1,000 mg PO TID PRN PRN 02/12/20 [History Last Taken 09/24/20 19:24] phenazopyridine 200 mg PO BID PRN PRN #10 tab 07/13/20 [Rx Last Taken 12/19/20] trazodone 100 mg PO QHS 01/19/21 [History Last Taken Unknown] Allergy/AdvReac Type Severity Reaction Status Date / Time mushroom Allergy Anaphylaxis Verified 01/19/21 23:02 peanut Allergy Anaphylaxis Verified 01/19/21 23:02 Gadolinium-MRI Contrast AdvReac Vomiting Verified 01/19/21 23:02 Medium Latex, Natural Rubber AdvReac Rash Verified 01/19/21 23:02 Family History Mother CVA (cerebral vascular accident) Thyroid disorder Diabetes Hypertension Heart disease Hyperlipidemia Myocardial infarction, Onset Age: 54 mother had diabetes Father Cancer skin Grandmother Cancer liver Surgical History history insertion suprapubic catheter History of cholecystectomy History of dilation and curettage History of spinal surgery Hx of foot surgery Hx of ventral hernia repair S/P thyroid biopsy (~11/06/19) Status post gastric surgery Social History household members: significant other Smoking Status: Never smoker alcohol intake: current substance use type: does not use ROS ROS Narrative Admission Review of Systems: CONSTITUTIONAL: No weight loss, fever, chills, + weakness or fatigue. HEENT: Eyes: No visual loss, blurred vision, double vision or yellow sclerae. Ears, Nose, Throat: No hearing loss, sneezing, congestion, runny nose or sore throat. SKIN: + Joan-suprapubic catheter skin irritation. CARDIOVASCULAR: No chest pain, chest pressure or chest discomfort, palpitations, edema, orthopnea, syncopal events. RESPIRATORY: No shortness of breath, cough or sputum, wheezing, hemoptysis. GASTROINTESTINAL: + anorexia, nausea, vomiting, abdominal pain, red streaking on stools with hemorrhoids, No melena, patricia BRBPR. GENITOURINARY: + Suprapubic pain, catheter in place. NEUROLOGICAL: No headache, dizziness, syncope, paralysis, ataxia, numbness or tingling in the extremities, focal weakness, change in bowel or bladder control, seizure. MUSCULOSKELETAL: + Muscle, back pain, joint pain or stiffness. HEMATOLOGIC: No anemia, bleeding or bruising. LYMPHATICS: No enlarged nodes. No history of splenectomy. PSYCHIATRIC: + History of depression or anxiety. ENDOCRINOLOGIC: No reports of sweating, cold or heat intolerance. No polyuria or polydipsia. ALLERGIES: No history of asthma, hives, eczema or rhinitis. Vital Signs Vital Signs Vital Signs: 01/19/21 22:59 01/20/21 00:59 01/20/21 01:17 Temperature 96.4 F L 97.3 F L Temperature Source Temporal Temporal Pulse Rate 90 84 Respiratory Rate 16 18 15 Blood Pressure 135/88 H 135/88 H Blood Pressure Mean 103 103 Pulse Ox 97 98 98 Oxygen Delivery Method Room Air Room Air Room Air Weight Weight: 225 lb Body Mass Index (BMI) 41.1 Physical Exam Narrative Physical Examination: General: Awake, alert, oriented x 3 and cooperative, seated upright in the ED b ed, NAD, playing with her phone. Skin: Normal color, normal turgor, no icterus, no cyanosis. HEENT: AT/NC, EOMI, PERRLA, MMM, no carotid bruits or JVD noted; however thickened neck makes examination difficult. Lungs: Mildly diminished, > bases, appropriate effort, no rales, ronchi or wheezing. Heart: Regular rate and rhythm; no gallop, rub audible. Abdomen: Soft, morbidly obese, bilateral lower quadrant discomfort with palpation, voluntary guarding, distant normal BS, suprapubic catheter in place, dressing foul appearing (noted changed day prior), removed with significant foul odor, no obvious HSM however habitus and pain make evaluation difficult. Extremities: No cyanosis, clubbing, or edema. Neurological: Patient awake, alert, oriented as noted, cognitive function intact; pupils equally reactive to light and accommodation, cranial nerves II- XII grossly normal, moving all 4 extremities, no focal deficits, strength mildly global decrease secondary to acute presentation complaints. Psychiatric: Affect appears normal, no acute evidence of depressive or anxiety feelings. Results Lab / Micro Data Result Diagrams: 01/20/21 00:45 01/20/21 00:45 Labs: Laboratory Results - last 24 hr 01/19/21 23:55: Urine Color Yellow, Urine Clarity Cloudy, Urine pH 6.0, Ur Specific [place] 1.015, Urine Protein 100 H, Urine Glucose (UA) 1000 H, Urine Ketones Negative, Urine Occult Blood 50 H, Urine Nitrite Positive H, Urine Bilirubin Negative, Urine Urobilinogen Normal, Ur Leukocyte Esterase 500 H, Urine RBC 0-5 SEEN, Urine WBC >100 SEEN, Ur Squamous Epith Cells 0-5 SEEN, Amorphous Sediment 1+, Urine Bacteria 4+, Urine Mucus 0 SEEN, Urine Test Negative 01/20/21 00:45: WBC 11.1 H, RBC 4.67, Hgb 14.0, Hct 42.3, MCV 90.6, MCH 30.0, MCHC 33.1, RDW Std Deviation 44.6 H, RDW Coeff of Claude 13.2, Plt Count 250, MPV 10.9, Immature Gran % (Auto) 1.300 H, Neut % (Auto) 58.7, Lymph % (Auto) 28.3, [place] % (Auto) 8.6, Eos % (Auto) 2.3, Baso % (Auto) 0.8, Absolute Neuts (auto) 6.5, Absolute Lymphs (auto) 3.14, Nucleated RBC % 0 01/20/21 00:45: Sodium 137, Potassium 4.0, Chloride 104, Carbon Dioxide 27.0, Anion Gap 6, BUN 9, Creatinine 0.96, Estim Creat Clear Calc 62.23, Est GFR (MDRD) Af Amer 83, Est GFR (MDRD) Non-Af 69, BUN/Creatinine Ratio 9.4 L, Glucose 258 H, Calcium 9.2 01/20/21 00:45: Acetone Level NEGATIVE 01/20/21 00:45: Lactic Acid 2.1 H* Assessment & Plan Assessment/Plan (1) Urinary tract infection: QUALIFIERS: Urinary tract infection type: catheter-associated UTI Indwelling urinary catheter type: indwelling urethral catheter Encounter type: initial encounter Qualified Code(s): T83.511A - Infection and inflammatory reaction due to indwelling urethral catheter, initial encounter; N39.0 - Urinary tract infection, site not specified PLAN: The patient is a 40 y/o F w/ PMHx: Anxiety and Depression/Panic attacks, Chronic normocytic anemia, Spina Bifida with neurogenic bowels and bladder with suprapubic catheter, Diabetes mellitus type II, Morbid Obesity, HTN, HLD who presents to the [facility] ED on 01/20/21 with history 3 to 4-day prior of onset suprapubic discomfort, dark appearing urine, retention sensation with infrequent output from her catheter although this seemed to normalize until she sneezed on day prior to ED presentation with sudden pop sensation and following this she noted that the urine output in the catheter increased with ongoing suprapubic discomfort. 1. Acute Complicated Acute Bladder Infection with Spina Bifida with Neurogenic Bowel/Bladder w/ Chronic Suprapubic Catheter with mild lactic acidosis: Will admit to [facility] upon ED evaluation remarkable, pending UCx, continue IVFs w/ LA trending per protocol, monitor I/Os, continue IV cefepime, recently discharged on cipro with decent sensitivities, consult Wound RN for joan-catheter insertion care as notably irritated skin. Given recurrent presentations, notable UTI hx will request ID evaluation. Given history, may need to consider Urology involvement. Following w/ Dr. Hancock; however, has seen Dr. Reza prior. 2. Hypertension: Continue home regimen including lisinopril, Lasix, propranolol with hold parameters, PRN hydralazine. 3. Hyperlipidemia: Not on regimen, defer to outpatient. 4. Morbid Obesity: Weight loss and lifestyle changes encouraged, nutrition consulted. 5. Diabetes mellitus type II: We will continue home insulin regimen, ADA diet, accu checks w/ ISS. 6. Anxiety and Depression/Panic attacks: Will continue q HS trazodone regimen, not on any other psychiatric regimen, encourage continued outpatient evaluations. 7. DVT prophylaxis: SCDs, Lovenox. Charges/Coding Visit Charges OBSV E&M: 36583 Initial observation care L3
[2021-01-20] MEDS: 0.9% Normal Saline 1,000 ML 100 ML IV ×3 (03:04→21:09)
[2021-01-20] MEDS: 0.9% Saline Lock 10 ML Syringe IV (03:05)
[2021-01-20] MEDS: oxyCODONE 5 MG Tablet PO ×4 (03:05→21:21)
[2021-01-20] MEDS: Acetaminophen 325 MG Tablet 650 MG PO ×2 (03:05→21:22)
[2021-01-20 04:54] LABS: Reflex Lactate? Y
[2021-01-20 06:00] LABS: Absolute Neutrophil Count 5.1 X10^3/uL (2.0-7.7); Basophil# 0.06 X10^3/uL; Basophil% 0.6 % (0-1); Eosinophils% 2.1 % (0-5); Lymphocyte % 32.8 % (19-41); Mean Corp Hgb Conc 32.4 g/dL (32-36); Mean Corpuscular Hgb 30.1 pg (27.0-32.0); Mean Corpuscular Volume 92.7 fL (81-99); Mean Platelet Vol. 10.7 fl (6.2-12.0); Monocyte# 0.89 X10^3/uL; Monocyte% 9.4 % (0-10); NRBC Flagged by Analyzer 0 % (0-5); Neutrophil # 5.09 X10^3/uL (2.7-7.7); Neutrophil % 53.8 % (47-70); Platelet Count 209 K/mm3 (150-450); RBC Distribution Width CV 13.4 % (11.6-14.6); RBC Distribution Width SD 45.5 fl (35.1-43.9); Red Blood Count 3.99 M/mm3 (4.2-5.4); White Blood Count 9.5 K/mm3 (4.4-11.0)
[2021-01-20 06:16] LABS: ALB/GLOB Ratio 0.8 RATIO (0.9-2.4); AST(SGOT) 36 U/L (15-37); Alanine Aminotransfer ALT/SGPT 63 U/L (13-56); Albumin, Serum 2.9 g/dL (3.2-5.0); Alkaline Phosphatase 69 U/L (45-117); Anion Gap 5 (5-15); BUN 11 mg/dL (7-18); BUN/Creat Ratio 14.3 RATIO (10-20); Calcium,Total 8.1 mg/dL (8.5-10.1); Chloride 109 mmol/L (98-107); Creatinine, Serum 0.77 mg/dL (0.55-1.02); EST Glomerular Filtration Rate 89 mL/min (>60); Est Glom Filt Rate - Afr Amer 107 mL/min (>60); Estimated Creatinine Clearance 77.58 ml/min; Globulin 3.7 g/dL (2.2-4.2); Glucose 238 mg/dL (74-106); Protein, Total 6.6 g/dL (6.4-8.2); Sodium Level 138 mmol/L (136-145)
[2021-01-20 06:18] LABS: Lactic Acid 1.7 mmol/L (0.4-1.9)
[2021-01-20] MEDS: Insulin Lispro 100 UNIT/ML INSULN.PEN SC ×4 (06:55→21:12)
[2021-01-20 07:01] LABS: Bedside Glucose 234 mg/dL (70-110)
--- NOTE | 2021-01-20 07:54 | NURSING ---
Was asked to see patient for skin irritation around the suprapubic catheter. patient denies much leakage around the tube. pt states changes the dressing around the suprapubic catheter. patient states she does not get up and move around much anymore. states that she gets up to go to the bathroom and to get something to eat and that is about it. Encouraged patient to be up moving around more and not do a lot of laying around. removed the dressing. there was minimal drainage noted. there is some mild redness noted. no odor. cleansed around suprapubic with soap and water. pat dry. applied a thin layer of calmoseptine and applied a new split gauze dressing. secured with tape. pt tolerated well. see skin photo.
--- NOTE | 2021-01-20 08:33 | NURSING ---
skin photo: abdomen
[2021-01-20] MEDS: Tolterodine Tartrate 4 MG CAP.SA PO (09:31)
[2021-01-20] MEDS: Propranolol 10 MG Tablet PO (09:31)
[2021-01-20] MEDS: Furosemide 40 MG Tablet PO (09:31)
[2021-01-20] MEDS: Lisinopril 2.5 MG Tablet PO (09:32)
--- NOTE | 2021-01-20 10:44 | PN.HOSP_ITS ---
Subjective Subjective Patient seen and examined this morning. She still complains of lower abdominal pain and right flank pain. She was admitted with a complaint of suprapubic discomfort and dark and offensive smelling urine. She has been managed for UTI. She is on IV ceftriaxone. Review of systems is otherwise negative. Objective Data Objective Data Vital Signs: Vital Signs Temp Pulse Resp BP Pulse Ox 97.9 F 58 L 16 119/63 98 01/20/21 07:31 01/20/21 07:31 01/20/21 07:31 01/20/21 07:31 01/20/21 08:10 Oxygen Delivery Method Room Air Weight: 228 lb 6.382 oz Body Mass Index (BMI) 41.8 Intake & Output: Intake and Output for Last 24 Hours 01/18/21 01/19/21 01/20/21 23:59 23:59 23:59 Intake Total 1163.33 / 1163.33 Output Total 400 / 400 Balance 763.33 / 763.33 Lab / Micro Data Result Diagrams: 01/20/21 05:45 01/20/21 05:45 Labs: Laboratory Results - last 24 hr 01/19/21 23:55: Urine Color Yellow, Urine Clarity Cloudy, Urine pH 6.0, Ur Specific [place] 1.015, Urine Protein 100 H, Urine Glucose (UA) 1000 H, Urine Ketones Negative, Urine Occult Blood 50 H, Urine Nitrite Positive H, Urine Bilirubin Negative, Urine Urobilinogen Normal, Ur Leukocyte Esterase 500 H, Urine RBC 0-5 SEEN, Urine WBC >100 SEEN, Ur Squamous Epith Cells 0-5 SEEN, Amorphous Sediment 1+, Urine Bacteria 4+, Urine Mucus 0 SEEN, Urine T est Negative 01/20/21 00:45: WBC 11.1 H, RBC 4.67, Hgb 14.0, Hct 42.3, MCV 90.6, MCH 30.0, MCHC 33.1, RDW Std Deviation 44.6 H, RDW Coeff of Claude 13.2, Plt Count 250, MPV 10.9, Immature Gran % (Auto) 1.300 H, Neut % (Auto) 58.7, Lymph % (Auto) 28.3, [place] % (Auto) 8.6, Eos % (Auto) 2.3, Baso % (Auto) 0.8, Absolute Neuts (auto) 6.5, Absolute Lymphs (auto) 3.14, Nucleated RBC % 0 01/20/21 00:45: Sodium 137, Potassium 4.0, Chloride 104, Carbon Dioxide 27.0, Anion Gap 6, BUN 9, Creatinine 0.96, Estim Creat Clear Calc 62.23, Est GFR (MDRD) Af Amer 83, Est GFR (MDRD) Non-Af 69, BUN/Creatinine Ratio 9.4 L, Glucose 258 H, Calcium 9.2 01/20/21 00:45: Acetone Level NEGATIVE 01/20/21 00:45: Lactic Acid 2.1 H* 01/20/21 05:45: WBC 9.5, RBC 3.99 L, Hgb 12.0, Hct 37.0, MCV 92.7, MCH 30.1, MCHC 32.4, RDW Std Deviation 45.5 H, RDW Coeff of [place] 13.4, Plt Count 209, MPV 10.7, Immature Gran % (Auto) 1.300 H, Neut % (Auto) 53.8, Lymph % (Auto) 32.8, [place] % (Auto) 9.4, Eos % (Auto) 2.1, Baso % (Auto) 0.6, Absolute Neuts (auto) 5.1, Absolute Lymphs (auto) 3.10, Nucleated RBC % 0 01/20/21 05:45: Sodium 138, Potassium 4.0, Chloride 109 H, Carbon Dioxide 24.0, Anion Gap 5, BUN 11, Creatinine 0.77, Estim Creat Clear Calc 77.58, Est GFR (MDRD) Af Amer 107, Est GFR (MDRD) Non-Af 89, BUN/Creatinine Ratio 14.3, Glucose 238 H, Calcium 8.1 L, Total Bilirubin 0.20, AST 36, ALT 63 H, Alkaline Phosphatase 69, Total Protein 6.6, Albumin 2.9 L, Globulin 3.7, Albumin/Globulin Ratio 0.8 L 01/20/21 05:45: Lactic Acid 1.7 01/20/21 06:52: POC Glucose 234 H Micro: Microbiology 01/20/21 02:00 Mucosa - Nose SARS-CoV-2 Antigen (Rapid) - Final Physical Exam Const alert, oriented x3 and no apparent distress Exam Limitations: no limitations HEENT head/scalp atraumatic Head and Scalp: normocephalic Mouth: dry mucous membranes Eyes PERRL, EOMs intact bilaterally and conjunctivae normal Neck no lymphadenopathy Resp normal respiratory effort, no retractions, no use of accessory muscles and clear to auscultation bilaterally GI normal to inspection, nondistended, normoactive bowel sounds, soft to palpation and non-distended GI Narrative: has suprapubic catheter in place; has mild suprapubic tenderness on palpation. Right CVA tenderness Extremity normal to inspection, full ROM and no clubbing, cyanosis or edema Peripheral Pulses: Yes pulses 2+ throughout Skin no rashes or lesions noted Neuro oriented x3 and CN's II-XII intact bilaterally Sensorium / Orientation: awake and alert Psych affect normal Assessment & Plan Assessment/Plan (1) Urinary tract infection: QUALIFIERS: Encounter type: initial encounter Indwelling urinary catheter type: indwelling urethral catheter Urinary tract infection type: catheter-associated UTI Qualified Code(s): T83.511A - Infection and inflammatory reaction due to indwelling urethral catheter, initial encounter; N39.0 - Urinary tract infection, site not specified PLAN: #Acute recurrent UTI * has a suprapubic catheter in place * wbc is down to 9.5 * on IV cefepime * patient has a history of recurrent UTI in setting of her suprapubic catheter. * blood and urine cultures pending * on pyridium * will consult ID as I think she will benefit from prophylactic antibiotics in light of her recurrent UTI. * I do think patient will likely be in hospital for 2 more midnights. * #History of paroxysmal supraventricular tachycardia #Type 2 diabetes mellitus * on lantus 33 units qhs * ISS. Accuchecks ACHS * #Hypertension: On lisinopril and Lasix as well as propranolol. #Anxiety and depression: On trazodone nightly. #Morbid obesity: BMI is 41.8. Affects acute care, prognosis and expected recovery. DVT prophylaxis: lovenox Charges/Coding Visit Charges Inpatient E&M: 61909 [facility] Hosp L3
[2021-01-20 11:40] LABS: Bedside Glucose 235 mg/dL (70-110)
[2021-01-20] MEDS: Phenazopyridine 95 MG Tablet 190 MG PO (14:09)
[2021-01-20] MEDS: Furosemide 20 MG Tablet PO (16:43)
[2021-01-20 16:50] LABS: Bedside Glucose 244 mg/dL (70-110)
--- NOTE | 2021-01-20 20:03 | PCM.CONS.GEN ---
Assessment & Plan Assessment/Plan (1) Pyelonephritis of right kidney: PLAN: Pyelo with suprapubic cath in place. Agree with cefepime based on cxs from 11/2020. Will follow, thank you, encouraged her to get covid shot. HPI Consult Data Date of Consult: 01/20/21 HPI Narrative HPI Narrative: HEBER BAILON, is a 40 F with suprapubic cath. Had uti a month ago, no uti in a long time before that point. Reports 7-10 days progressive lower abd pain and R flank pain. Some mild fever/chills. Not received covid vaccine. Some nausea. No aches, no cough or SOB. Admitted on ceftriaxone, changed to cefepime, feeling not much better this afternoon. Full ROS performed and neg except as noted above. [facility] Medical History Anxiety and depression Arthritis Cellulitis of left lower extremity Chronic back pain Chronic nausea Constipation Delayed wound healing Diabetes mellitus, type II Diabetic ulcer of left heel with fat layer exposed DJD (degenerative joint disease) of thoracic spine Dysthymic disorder Essential hypertension Hematochezia History of kidney stones History of migraine Hydronephrosis of right kidney Hyperglycemia Hyperlipidemia Infection of bladder catheter Insomnia Lipomeningocele Lower extremity edema Morbid obesity with BMI of 40.0-44.9, adult Neurogenic bladder Neurogenic bowel Non-compliance Non-smoker Normochromic normocytic anemia Panic attacks PSVT (paroxysmal supraventricular tachycardia) Sepsis Sepsis Spina bifida aperta of lumbar spine Thyroid cyst Type 2 diabetes mellitus with diabetic polyneuropathy Ulcer of left heel and midfoot with fat layer exposed Uninodular goiter Urinary tract infection UTI (urinary tract infection) UTI (urinary tract infection) Weakness Home Medications furosemide 20 mg PO DAILY@1700 08/28/18 [History Last Taken 12/22/20] furosemide 40 mg PO BREAKFAST 04/05/19 [History Last Taken 12/22/20] insulin glargine 100 unit/mL (3 mL) subcutaneous pen 33 unit SC QHS 11/01/19 [History Last Taken 12/21/20] lisinopril 2.5 mg tablet 2.5 mg PO DAILY 11/01/19 [History Last Taken 12/22/20] oxybutynin chloride 15 mg tablet,extended release 24 hr 15 mg PO DAILY 11/12/19 [History Last Taken 12/22/20] propranolol 10 mg PO BID 01/13/20 [History Last Taken 12/22/20] acetaminophen 1,000 mg PO TID PRN PRN 02/12/20 [History Last Taken 09/24/20 19:24] phenazopyridine 200 mg PO BID PRN PRN #10 tab 07/13/20 [Rx Last Taken 12/19/20] trazodone 100 mg PO QHS 01/19/21 [History Last Taken Unknown] Allergy/AdvReac Type Severity Reaction Status Date / Time mushroom Allergy Anaphylaxis Verified 01/19/21 23:02 peanut Allergy Anaphylaxis Verified 01/19/21 23:02 Gadolinium-MRI Contrast AdvReac Vomiting Verified 01/19/21 23:02 Medium Latex, Natural Rubber AdvReac Rash Verified 01/19/21 23:02 Family History Mother CVA (cerebral vascular accident) Thyroid disorder Diabetes Hypertension Heart disease Hyperlipidemia Myocardial infarction, Onset Age: 54 mother had diabetes Father Cancer skin Grandmother Cancer liver Surgical History history insertion suprapubic catheter History of cholecystectomy History of dilation and curettage History of spinal surgery Hx of foot surgery Hx of ventral hernia repair S/P thyroid biopsy (~11/06/19) Status post gastric surgery Social History household members: significant other Smoking Status: Never smoker alcohol intake: current substance use type: does not use Physical Exam Const alert and oriented x3 General Appearance: cooperative Exam Limitations: no limitations HEENT normocephalic and head/scalp atraumatic Eyes PERRL and EOMs intact bilaterally Neck supple and No nodes Resp normal air movement and clear to auscultation bilaterally Cardio regular rate and regular rhythm GI non-distended GI Narrative: R flank and lower abd tenderness Palpation: tender Extremity General Extremity: edema Skin no rashes or lesions noted Neuro CN's II-XII intact bilaterally Lab / Micro Data Result Diagrams: 01/20/21 05:45 01/20/21 05:45 Labs: Laboratory Results - last 24 hr 01/19/21 23:55: Urine Color Yellow, Urine Clarity Cloudy, Urine pH 6.0, Ur Specific [place] 1.015, Urine Protein 100 H, Urine Glucose (UA) 1000 H, Urine Ketones Negative, Urine Occult Blood 50 H, Urine Nitrite Positive H, Urine Bilirubin Negative, Urine Urobilinogen Normal, Ur Leukocyte Esterase 500 H, Urine RBC 0-5 SEEN, Urine WBC >100 SEEN, Ur Squamous Epith Cells 0-5 SEEN, Amorphous Sediment 1+, Urine Bacteria 4+, Urine Mucus 0 SEEN, Urine Test Negative 01/20/21 00:45: WBC 11.1 H, RBC 4.67, Hgb 14.0, Hct 42.3, MCV 90.6, MCH 30.0, MCHC 33.1, RDW Std Deviation 44.6 H, RDW Coeff of [place] 13.2, Plt Count 250, MPV 10.9, Immature Gran % (Auto) 1.300 H, Neut % (Auto) 58.7, Lymph % (Auto) 28.3, [place] % (Auto) 8.6, Eos % (Auto) 2.3, Baso % (Auto) 0.8, Absolute Neuts (auto) 6.5, Absolute Lymphs (auto) 3.14, Nucleated RBC % 0 01/20/21 00:45: Sodium 137, Potassium 4.0, Chloride 104, Carbon Dioxide 27.0, Anion Gap 6, BUN 9, Creatinine 0.96, Estim Creat Clear Calc 62.23, Est GFR (MDRD) Af Amer 83, Est GFR (MDRD) Non-Af 69, BUN/Creatinine Ratio 9.4 L, Glucose 258 H, Calcium 9.2 01/20/21 00:45: Acetone Level NEGATIVE 01/20/21 00:45: Lactic Acid 2.1 H* 01/20/21 05:45: WBC 9.5, RBC 3.99 L, Hgb 12.0, Hct 37.0, MCV 92.7, MCH 30.1, MCHC 32.4, RDW Std Deviation 45.5 H, RDW Coeff of [place] 13.4, Plt Count 209, MPV 10.7, Immature Gran % (Auto) 1.300 H, Neut % (Auto) 53.8, Lymph % (Auto) 32.8, [place] % (Auto) 9.4, Eos % (Auto) 2.1, Baso % (Auto) 0.6, Absolute Neuts (auto) 5.1, Absolute Lymphs (auto) 3.10, Nucleated RBC % 0 01/20/21 05:45: Sodium 138, Potassium 4.0, Chloride 109 H, Carbon Dioxide 24.0, Anion Gap 5, BUN 11, Creatinine 0.77, Estim Creat Clear Calc 77.58, Est GFR (MDRD) Af Amer 107, Est GFR (MDRD) Non-Af 89, BUN/Creatinine Ratio 14.3, Glucose 238 H, Calcium 8.1 L, Total Bilirubin 0.20, AST 36, ALT 63 H, Alkaline Phosphatase 69, Total Protein 6.6, Albumin 2.9 L, Globulin 3.7, Albumin/Globulin Ratio 0.8 L 01/20/21 05:45: Lactic Acid 1.7 01/20/21 06:52: POC Glucose 234 H 01/20/21 11:33: POC Glucose 235 H 01/20/21 16:40: POC Glucose 244 H Micro: Microbiology 01/20/21 02:00 Mucosa - Nose SARS-CoV-2 Antigen (Rapid) - Final
[2021-01-20] MEDS: traZODone 100 MG Tablet PO (21:12)
[2021-01-20 21:26] LABS: Bedside Glucose 228 mg/dL (70-110)
[2021-01-21] VITALS (9 sets, daily range): BP systolic 84–115; BP diastolic 47–66; PULSE 58–82; RESP 15–18; TEMP 36.6–37.7; O2SAT 94–99
[2021-01-21] MEDS: 0.9% Normal Saline 1,000 ML 100 ML IV ×2 (06:32→17:02)
[2021-01-21] MEDS: Insulin Lispro 100 UNIT/ML INSULN.PEN SC ×3 (06:34→22:21)
[2021-01-21 06:51] LABS: Bedside Glucose 183 mg/dL (70-110)
[2021-01-21 06:51] LABS: Absolute Lymphocyte Count 2.96 X10^3/uL (0.83-4.51); Absolute Neutrophil Count 4.6 X10^3/uL (2.0-7.7); Basophil# 0.08 X10^3/uL; Basophil% 0.9 % (0-1); Eosinophil# 0.23 X10^3/uL; Eosinophils% 2.6 % (0-5); Hemoglobin 12.5 g/dL (12.0-15.0); Lymphocyte # 2.96 X10^3/ul (0.83-4.51); Lymphocyte % 33.2 % (19-41); Mean Corp Hgb Conc 32.1 g/dL (32-36); Mean Corpuscular Volume 93.5 fL (81-99); Mean Platelet Vol. 10.9 fl (6.2-12.0); Monocyte# 0.88 X10^3/uL; Monocyte% 9.9 % (0-10); NRBC Flagged by Analyzer 0 % (0-5); Neutrophil # 4.62 X10^3/uL (2.7-7.7); Neutrophil % 51.7 % (47-70); Platelet Count 211 K/mm3 (150-450); RBC Distribution Width CV 13.3 % (11.6-14.6); RBC Distribution Width SD 45.5 fl (35.1-43.9); Red Blood Count 4.17 M/mm3 (4.2-5.4); White Blood Count 8.9 K/mm3 (4.4-11.0)
[2021-01-21 07:21] LABS: Anion Gap 8 (5-15); BUN 16 mg/dL (7-18); BUN/Creat Ratio 17.9 RATIO (10-20); Calcium,Total 8.6 mg/dL (8.5-10.1); Chloride 103 mmol/L (98-107); EST Glomerular Filtration Rate 75 mL/min (>60); Est Glom Filt Rate - Afr Amer 90 mL/min (>60); Estimated Creatinine Clearance 66.37 ml/min; Glucose 176 mg/dL (74-106); Potassium 3.8 mmol/L (3.5-5.1); Sodium Level 136 mmol/L (136-145)
--- NOTE | 2021-01-21 08:18 | NURSING ---
In to reassess the suprapubic catheter site. removed dressing. no drainage noted. less redness noted to the skin. washed skin with soap and water. pat dry. applied small amount of calmoseptine and placed a new dry split gauze dressing. pt slept through dressing change.
[2021-01-21] MEDS: Acetaminophen 325 MG Tablet 650 MG PO (10:19)
[2021-01-21] MEDS: Phenazopyridine 95 MG Tablet 190 MG PO (10:21)
[2021-01-21] MEDS: Propranolol 10 MG Tablet PO ×2 (10:21→22:38)
[2021-01-21] MEDS: Lisinopril 2.5 MG Tablet PO (10:21)
[2021-01-21] MEDS: oxyCODONE 5 MG Tablet PO ×2 (10:21→22:39)
[2021-01-21] MEDS: Tolterodine Tartrate 4 MG CAP.SA PO (10:21)
[2021-01-21] MEDS: Furosemide 40 MG Tablet PO (10:22)
--- NOTE | 2021-01-21 10:23 | NURSING ---
SCDS REMOVED PER PT REQUEST. STATES THEY ARE MAKING HER LEGS HURT.
--- NOTE | 2021-01-21 10:41 | PCM.PN.ID ---
Physical Exam Narrative Feeling better, still some abd pain, no fever, no n/v/d. Const alert and no apparent distress General Appearance: cooperative Resp normal air movement and clear to auscultation bilaterally Cardio regular rate and regular rhythm GI Palpation: tender Skin no rashes or lesions noted ID ID: Route of nutrition/ use of supplements: [] Nutritional Intake: [] IV Site: [] Morales Catheter: [] Assessment & Plan Assessment/Plan (1) Pyelonephritis of right kidney: PLAN: Pyelo with suprapubic cath in place. Agree with cefepime based on cxs from 11/2020. Ucx here with 100k mixed fred, further results pending Will follow, have encouraged her to get covid shot.
[2021-01-21 11:31] LABS: Bedside Glucose 161 mg/dL (70-110)
--- NOTE | 2021-01-21 11:38 | CASEMGMT ---
VERNON BENITEZ Readmission Note Previous Admission: 12/23/20-12/24/20 Diagnosis: severe sepsis/UTI DC Disposition: Home with family support Current Admission Readmit Diagnosis:acute complicated bladder infection Pt presented to ER from home with UTI symptoms. Pt has a suprapubic cath for approx 2 years. VERNON BENITEZ in to pt room. Pt reports she has had a follow up appt with her PCP since last hospitalization. She has been taking her medications as ordered. Pt states she remembers that she sneezed, heard a pop and urine gushed out of her tubing. She states her catheter had been draining properly prior to her sneeze. Pt does irrigate her cath at home if needed. Pt states she uses proper technique with catheter but is prone to UTI's. Pt denies need for C SN. DC PLAN: Pt to return home with family support.
--- NOTE | 2021-01-21 12:23 | CASEMGMT ---
Pt screened with [facility] Palliative Screening Tool due to readmission, pt did not meet criteria.
--- NOTE | 2021-01-21 13:01 | PN.HOSP_ITS ---
Subjective Subjective Patient seen and examined. She still complains of abdominal pain. She denies any fever, chills, nausea, vomiting or diarrhea. Review of systems is otherwise negative. She has remained hemodynamically stable. Objective Data Objective Data Vital Signs: Vital Signs Temp Pulse Resp BP Pulse Ox 98.4 F 67 18 111/60 99 01/21/21 08:42 01/21/21 08:42 01/21/21 08:42 01/21/21 08:42 01/21/21 08:42 Oxygen Delivery Method Room Air Weight: 228 lb 6.382 oz Body Mass Index (BMI) 41.8 Intake & Output: Intake and Output for Last 24 Hours 01/19/21 01/20/21 01/21/21 23:59 23:59 23:59 Intake Total 4351.66 / 4751.66 1688.34 / 1688.34 Output Total 1999 / 4749 3450 / 3450 Balance 2351.66 / 1.66 -1761.66 / -1761.66 Lab / Micro Data Result Diagrams: 01/21/21 06:04 01/21/21 06:04 Labs: Laboratory Results - last 24 hr 01/20/21 16:40: POC Glucose 244 H 01/20/21 21:08: POC Glucose 228 H 01/21/21 06:04: WBC 8.9, RBC 4.17 L, Hgb 12.5, Hct 39.0, MCV 93.5, MCH 30.0, MCHC 32.1, RDW Std Deviation 45.5 H, RDW Coeff of Claude 13.3, Plt Count 211, MPV 10.9, Immature Gran % (Auto) 1.700 H, Neut % (Auto) 51.7, Lymph % (Auto) 33.2, [place] % (Auto) 9.9, Eos % (Auto) 2.6, Baso % (Auto) 0.9, Absolute Neuts (auto) 4.6, Absolute Lymphs (auto) 2.96, Nucleated RBC % 0 01/21/21 06:04: Sodium 136, Potassium 3.8, Chloride 103, Carbon Dioxide 25.0, Anion Gap 8, BUN 16, Creatinine 0.90, Estim Creat Clear Calc 66.37, Est GFR (MDRD) Af Amer 90, Est GFR (MDRD) Non-Af 75, BUN/Creatinine Ratio 17.9, Glucose 176 H, Calcium 8.6 01/21/21 06:32: POC Glucose 183 H 01/21/21 11:26: POC Glucose 161 H Micro: Microbiology 01/19/21 23:33 Urine Catheter - Catheter Urine Culture - Preliminary Mixed Gram Pos & Gram Neg Org 01/20/21 02:00 Mucosa - Nose SARS-CoV-2 Antigen (Rapid) - Final Physical Exam Const alert, oriented x3 and no apparent distress Exam Limitations: no limitations HEENT head/scalp atraumatic Head and Scalp: normocephalic Eyes PERRL, EOMs intact bilaterally and conjunctivae normal Neck no lymphadenopathy Resp normal respiratory effort, no retractions, no use of accessory muscles and clear to auscultation bilaterally Cardio regular rate, regular rhythm, S1 normal heart sound, S2 normal heart sound and no murmurs GI normal to inspection, nondistended, normoactive bowel sounds, soft to palpation and non-distended GI Narrative: has suprapubic catheter in place; has minimal suprapubic tenderness on palpation. Minimal Right CVA tenderness today Extremity normal to inspection, full ROM and no clubbing, cyanosis or edema Peripheral Pulses: Yes pulses 2+ throughout Skin no rashes or lesions noted Neuro oriented x3 and CN's II-XII intact bilaterally Sensorium / Orientation: awake and alert Psych affect normal Assessment & Plan Assessment/Plan (1) Urinary tract infection: QUALIFIERS: Urinary tract infection type: catheter-associated UTI Indwelling urinary catheter type: indwelling urethral catheter Encounter type: initial encounter Qualified Code(s): T83.511A - Infection and inflammatory reaction due to indwelling urethral catheter, initial encounter; N39.0 - Urinary tract infection, site not specified PLAN: #Acute recurrent UTI with right pyelonephritis * has a suprapubic catheter in place * wbc is down to 8.9 * on IV cefepime * patient has a history of recurrent UTI in setting of her suprapubic catheter. * blood cultures pending; urine cultures growing mixed gram positive and gram negative organisms. * on pyridium * ID on board * #Type 2 diabetes mellitus * on lantus 33 units qhs * ISS. Accuchecks ACHS * #Hypertension: On lisinopril and Lasix as well as propranolol. #Anxiety and depression: On trazodone nightly. #Morbid obesity: BMI is 41.8. Affects acute care, prognosis and expected recovery. DVT prophylaxis: lovenox Charges/Coding Visit Charges Inpatient E&M: 80745 Subs Hosp L2
[2021-01-21 17:10] LABS: Bedside Glucose 144 mg/dL (70-110)
--- NOTE | 2021-01-21 17:34 | NURSING ---
PT BP 94/58, DR ECHEVERRIA MADE AWARE DUE TO PT SCHEDULED LASIX THIS AFTERNOON. PTS PREVIOUS BP 84/47. ORDER TO HOLD LASIX.
[2021-01-21] MEDS: traZODone 100 MG Tablet PO (22:24)
[2021-01-21 22:30] LABS: Bedside Glucose 203 mg/dL (70-110)
[2021-01-22 03:33] VITALS: BP 100/55; PULSE 58; RESP 16; TEMP 37; O2SAT 98
[2021-01-22] MEDS: 0.9% Normal Saline 1,000 ML 100 ML IV (03:35)
[2021-01-22 06:51] LABS: Bedside Glucose 126 mg/dL (70-110)
[2021-01-22 08:06] VITALS: O2SAT 98
[2021-01-22 08:20] LABS: Absolute Neutrophil Count 4.8 X10^3/uL (2.0-7.7); Basophil# 0.09 X10^3/uL; Eosinophil# 0.21 X10^3/uL; Eosinophils% 2.3 % (0-5); Hematocrit 36.4 % (37-47); Lymphocyte % 31.9 % (19-41); Mean Corpuscular Hgb 30.1 pg (27.0-32.0); Mean Corpuscular Volume 91.2 fL (81-99); Mean Platelet Vol. 10.5 fl (6.2-12.0); Monocyte# 0.98 X10^3/uL; Monocyte% 10.8 % (0-10); NRBC Flagged by Analyzer 0 % (0-5); Neutrophil # 4.75 X10^3/uL (2.7-7.7); Neutrophil % 52.1 % (47-70); Platelet Count 206 K/mm3 (150-450); RBC Distribution Width CV 13.2 % (11.6-14.6); RBC Distribution Width SD 44.5 fl (35.1-43.9); Red Blood Count 3.99 M/mm3 (4.2-5.4); White Blood Count 9.1 K/mm3 (4.4-11.0)
[2021-01-22 08:35] LABS: Anion Gap 6 (5-15); BUN 14 mg/dL (7-18); BUN/Creat Ratio 18.5 RATIO (10-20); Calcium,Total 8.7 mg/dL (8.5-10.1); Chloride 108 mmol/L (98-107); Creatinine, Serum 0.76 mg/dL (0.55-1.02); EST Glomerular Filtration Rate 90 mL/min (>60); Est Glom Filt Rate - Afr Amer 109 mL/min (>60); Glucose 122 mg/dL (74-106); Potassium 3.9 mmol/L (3.5-5.1); Sodium Level 139 mmol/L (136-145)
[2021-01-22] MEDS: Furosemide 40 MG Tablet PO (08:53)
[2021-01-22 09:45] VITALS: PULSE 68
[2021-01-22 09:46] VITALS: BP 101/60; PULSE 50; RESP 16; TEMP 37.1; O2SAT 99
[2021-01-22] MEDS: Tolterodine Tartrate 4 MG CAP.SA PO (09:56)
[2021-01-22] MEDS: Insulin Lispro 100 UNIT/ML INSULN.PEN SC (11:31)
[2021-01-22 12:01] LABS: Bedside Glucose 222 mg/dL (70-110)
[2021-01-22 13:01] VITALS: BP 121/80; PULSE 93; RESP 14; TEMP 37.1; O2SAT 98
--- NOTE | 2021-01-22 13:49 | PCM.PN.ID ---
Physical Exam Narrative Feeling much better, no fever, abd pain better Const no apparent distress General Appearance: cooperative Resp normal air movement and clear to auscultation bilaterally Cardio regular rate and regular rhythm GI normal to inspection, nondistended, normoactive bowel sounds Skin no rashes or lesions noted ID ID: Route of nutrition/ use of supplements: [] Nutritional Intake: [] IV Site: [] Morales Catheter: [] Assessment & Plan Assessment/Plan (1) Pyelonephritis of right kidney: PLAN: Pyelo with suprapubic cath in place. Agree with cefepime based on cxs from 11/2020. Ucx here with 100k mixed fred, further results pending. Sx much improved, ok for home with 1 week po augmentin 875mg bid. Will follow as needed, have encouraged her to get covid shot. D/w Dr. Sams
--- NOTE | 2021-01-22 14:04 | PCM.DC.SUM ---
Providers Date of Admission: 01/20/21 Primary Care Physician: Dr. Will Shukla MD Consultations 01/20/21 01:57 Consult: Infectious Disease Routine Consulting Provider: Alpesh Alex Reason for Consult: Recurrent UTIs EMERGENT Consult: No MD Notified: Yes Date Notified: 01/20/21 Time Notified: 04:56 Method of Notification: Answering Service Consult: Onc/Wound/childbirth educator Routine Comment: Reason for Consult:: pericatheter notable skin irritation Reason For Visit: ACUTE COMPLICATED ACUTE BLADDER INFECTION Diagnosis Discharge Diagnosis (1) Pyelonephritis of right kidney: Status: Acute Code(s): N12 - Tubulo-interstitial nephritis, not specified as acute or chronic Medications at Discharge Home Medications furosemide 20 mg PO DAILY@1700 08/28/18 furosemide 40 mg PO BREAKFAST 04/05/19 insulin glargine 100 unit/mL (3 mL) subcutaneous pen 33 unit SC QHS 11/01/19 lisinopril 2.5 mg tablet 2.5 mg PO DAILY 11/01/19 oxybutynin chloride 15 mg tablet,extended release 24 hr 15 mg PO DAILY 11/12/19 propranolol 10 mg PO BID 01/13/20 acetaminophen 1,000 mg PO TID PRN PRN 02/12/20 phenazopyridine 200 mg PO BID PRN PRN #10 tab 07/13/20 trazodone 100 mg PO QHS 01/19/21 amoxicillin-pot clavulanate [Augmentin] 1 tab PO BID #14 tab 01/22/21 Hospital Course Operations None Procedures None Summary of Care Provided Minutes Spent on Discharge: 40 Hospital Course: Patient is a 40 y/o female with an extensive PMH as outlined who was admitted via the ED on 01/20/2021 with a complaint of suprapubic pain, dark offensive smelling urine and decreased output from her suprapubic catheter. SHe had just only recently been admitted on 12/23/2020 and discharged with a 7 day course of oral ciprofloxacin. On admission, urinalysis was positive for UTI with 4+ bacteria. COVID test was negative. She was admitted and managed for acute recurrent UTI, and right pyelonephritis, and started on IV cefepime. Blood and urine cultures were obtained. Urine cultures grew mixed gram positive and gram negative organisms, and blood cultures were also negative. ID was also consulted. Patient's symptoms improved markedly, and pain resolved. She was discharged home on 01/22/2021 on PO augmentin 875/125mg bid x 7 days. She is to follow up with her PCP and ID in 1-2 weeks. She was also counseled to get the covid vaccine. Patient seen and examined prior to discharge. She felt much better and had no complaints. Review of systems was otherwise negative. Labs and vitals reviewed. Home meds reviewed and reconciled. Physical Exam Const alert, oriented x3 and no apparent distress General Appearance: cooperative and comfortable Exam Limitations: no limitations HEENT normocephalic and head/scalp atraumatic Eyes PERRL, EOMs intact bilaterally and conjunctivae normal Neck no lymphadenopathy Resp normal respiratory effort, no retractions, no use of accessory muscles and clear to auscultation bilaterally Cardio regular rate, regular rhythm, S1 normal heart sound, S2 normal heart sound and no murmurs GI normal to inspection, nondistended, normoactive bowel sounds, soft to palpation and non-distended GI Narrative: has suprapubic catheter in place; suprapubic tenderness and right CVA tenderness has resolved. Extremity normal to inspection, full ROM and no clubbing, cyanosis or edema Skin no rashes or lesions noted Neuro oriented x3 and CN's II-XII intact bilaterally Sensorium / Orientation: awake and alert Psych affect normal Weight / BMI Weight Weight: 228 lb 6.382 oz Body Mass Index (BMI) 41.8 ABG / Lab / Microbiology Data Result Diagrams: 01/22/21 08:00 01/22/21 08:00 Laboratory: Laboratory Results - last 24 hr 01/21/21 17:00: POC Glucose 144 H 01/21/21 22:19: POC Glucose 203 H 01/22/21 06:38: POC Glucose 126 H 01/22/21 08:00: WBC 9.1, RBC 3.99 L, Hgb 12.0, Hct 36.4 L, MCV 91.2, MCH 30.1, MCHC 33.0, RDW Std Deviation 44.5 H, RDW Coeff of Claude 13.2, Plt Count 206, MPV 10.5, Immature Gran % (Auto) 1.900 H, Neut % (Auto) 52.1, Lymph % (Auto) 31.9, [place] % (Auto) 10.8 H, Eos % (Auto) 2.3, Baso % (Auto) 1.0, Absolute Neuts (auto) 4.8, Absolute Lymphs (auto) 2.90, Nucleated RBC % 0 01/22/21 08:00: Sodium 139, Potassium 3.9, Chloride 108 H, Carbon Dioxide 25.0, Anion Gap 6, BUN 14, Creatinine 0.76, Estim Creat Clear Calc 78.60, Est GFR (MDRD) Af Amer 109, Est GFR (MDRD) Non-Af 90, BUN/Creatinine Ratio 18.5, Glucose 122 H, Calcium 8.7 01/22/21 11:31: POC Glucose 222 H Microbiology: Microbiology 01/20/21 01:05 Blood Culture (Wb) - Anticubital Right Blood Culture - Preliminary No growth in 48 hours. 01/20/21 00:45 Blood Culture (Wb) - Arm Right Blood Culture - Preliminary No growth in 48 hours. 01/19/21 23:33 Urine Catheter - Catheter Urine Culture - Preliminary Mixed Gram Pos & Gram Neg Org 01/20/21 02:00 Mucosa - Nose SARS-CoV-2 Antigen (Rapid) - Final D/C Instructions Discharge Diet: 1800 Calorie Control Diet Discharge Activity: Return to Normal Activity Weight Bearing Status: Weight bearing as tolerated Call your doctor if you observe: Fever of 101 or Higher, Inability to urinate, Shortness of breath, Increased palpitations (irregular heartbeat) and Uncontrolled pain Meaningful Use Info Meaningful Use Diagnoses (Choose all that apply): None applicable Discharge Plan Admission Admit Date/Time: 01/20/21 15:23 Primary Reason for Your Visit: acute recurrent UTI, right pyelonephritis Attending Provider: Vandana Sams Primary Care Provider: Will Shukla Consulting Providers: Alpesh Alex Instructions Patient Instructions: Catheter-Linked Urinary Tract ..., ED Pyelonephritis, Female (Adult) Discharge Orders/Prescriptions Prescriptions: New amoxicillin-pot clavulanate [Augmentin] 875-125 mg tablet 1 tab PO BID Qty: 14 RF: 0 Continued Lantus Solostar U-100 Insulin 100 unit/mL (3 mL) insulin pen 33 unit SC QHS RF: 0 lisinopril 2.5 mg tablet 2.5 mg PO DAILY RF: 0 furosemide 20 MG tablet 20 mg PO DAILY@1700 RF: 0 furosemide 40 MG tablet 40 mg PO BREAKFAST RF: 0 oxybutynin chloride 15 mg tablet extended release 24hr 15 mg PO DAILY RF: 0 propranolol 10 MG tablet 10 mg PO BID RF: 0 acetaminophen 500 MG tablet 1,000 mg PO TID PRN PRN (Reason: Pain Or Fever) RF: 0 phenazopyridine 200 MG tablet 200 mg PO BID PRN PRN (Reason: Pain) Qty: 10 RF: 0 trazodone 100 mg tablet 100 mg PO QHS RF: 0 Referrals / Follow Up: Will Shukla MD [Primary Care Provider] - Within 2 Weeks Alpesh Alex MD [STAFF PHYSICIAN] - Within 2 Weeks Disposition Disposition (needs filled in before D/C Order can be placed): Home, Self Care Charges/Coding Visit Charges Inpatient E&M: 41418 Disch Hosp
[2021-01-22] MEDS: oxyCODONE 5 MG Tablet PO (14:41)
[2021-01-22 14:59] VITALS: O2SAT 98
--- NOTE | 2021-01-25 15:23 | CASEMGMT ---
VERNON BENITEZ Discharge Follow Up Phone Call: CHLOE: 14 Strata: 4 Call Date: 01/25/21 Discharge Date: 01/22/21 Time of Call:1518 Duration:4 min Admitting Dx:pyelonephritis R kidney VERNON BENITEZ completed follow up phone call after recent hospitalization. Pt states she was fine the day of dc then Monday started to get chills, dizziness, nausea and painful. She states Monday it down a little and today it is iffy. Pt states she did get her antibiotic and made her FU appt with her PCP but she cannot get in for 2-3 wks. She states she did make her PCP aware of her symptoms who then referred her to call her uro. She states she did this and she was told to let her antibiotic work and if in a few days she has not improved to call back and they will get her in for an appt. Pt states she forgot to call and set up her ID follow up appt but she will do so. Pt has no further questions or concerns at this time.
== END 2021-01-22 15:56 | disposition home or self-care (01) | DRG 699 ==
LOC: ED 01-20 01:18 → MS3 01-20 01:59
PROVIDERS: Admitting Provider Family Medicine; Emergency Provider Emergency Medicine; PCP Family Medicine; Visit Provider Student in an Organized Health Care Education/Training Program
DX: T83.511A Infection and inflammatory reaction due to indwelling urethral catheter, initial encounter (principal); K59.2 Neurogenic bowel, not elsewhere classified; N12 Tubulo-interstitial nephritis, not specified as acute or chronic; Z68.41 Body mass index [BMI] 40.0-44.9, adult; L97.422 Non-pressure chronic ulcer of left heel and midfoot with fat layer exposed; N39.0 Urinary tract infection, site not specified; E78.5 Hyperlipidemia, unspecified; E66.01 Morbid (severe) obesity due to excess calories; F32.9 Major depressive disorder, single episode, unspecified; F41.0 Panic disorder [episodic paroxysmal anxiety]; I10 Essential (primary) hypertension; Z87.440 Personal history of urinary (tract) infections; Q05.7 Lumbar spina bifida without hydrocephalus; Z79.4 Long term (current) use of insulin; Z87.442 Personal history of urinary calculi; Z90.49 Acquired absence of other specified parts of digestive tract; E11.621 Type 2 diabetes mellitus with foot ulcer; E11.42 Type 2 diabetes mellitus with diabetic polyneuropathy; Y84.6 Urinary catheterization as the cause of abnormal reaction of the patient, or of later complication, without mention of misadventure at the time of the procedure; Z82.3 Family history of stroke; Z83.3 Family history of diabetes mellitus; Z91.19 Patient's noncompliance with other medical treatment and regimen; Z91.010 Allergy to peanuts; D64.9 Anemia, unspecified
CPT/HCPCS: 36415; 80048; 80053; 81001; 81025; 82009; 82962; 83605; 85025; 87040; 87077; 87086; 87088; 87186; 87426; 99251; 99284; J7030; A4216; G0463; J2405

== ENCOUNTER → 2021-01-29 10:00 | Outpatient (CLI) | payer MEDICARE, MEDICAID, SELFPAY ==
[2021-01-29 12:42] LABS: Cholesterol 188 mg/dL (200); High Density Lipoprotein 42 mg/dL; Triglycerides 134 mg/dL; Very Low Density Lipoprotein 27 mg/dL (5-40)
== END ==
PROVIDERS: PCP Family Medicine; Referring Provider Nurse Practitioner Family; Visit Provider Nurse Practitioner Family
DX: R60.0 Localized edema (principal); E11.628 Type 2 diabetes mellitus with other skin complications; L08.9 Local infection of the skin and subcutaneous tissue, unspecified
CPT/HCPCS: 36415; 80061; 82043; 82570; 84443

== ENCOUNTER 2021-02-23 00:03 | Emergency (ER) | payer MEDICARE, MEDICAID, SELFPAY ==
[2021-02-23 00:04] VITALS: BP 138/99; PULSE 104; RESP 18; TEMP 36.4; O2SAT 98; BMI 41.1
[2021-02-23 00:06] VITALS: BP 138/99; PULSE 104; RESP 18; TEMP 36.4; O2SAT 98
--- NOTE | 2021-02-23 00:22 | CT_ITS ---
STUDY: CT ABDOMEN AND PELVIS WITHOUT CONTRAST REASON FOR EXAM: Female, 40 years old. right flank pain RADIATION DOSAGE (If Supplied By Facility): CTDIvol = ( 17.30 ) mGy, DLP = ( 903.30 ) mGycm TECHNIQUE: Transaxial images were obtained from the dome of the diaphragm to the symphysis pubis without oral contrast, and without intravenous contrast. Sagittal and coronal images were reconstructed. Individualized dose optimization techniques were used for this CT. COMPARISON: 12/23/2020 FINDINGS: Calcified granuloma in the right lower lobe. Diffuse hepatic steatosis. Unremarkable spleen, pancreas, and adrenals on this unenhanced study. A 0.5 cm nonobstructing stone in the lower pole of the right kidney. No additional radiopaque urolithiasis on either side. Gallbladder not seen and likely removed. Large amount of retained stool throughout the colon. Bowel loops nonobstructed. No CT evidence of acute appendicitis. No free air or free fluid. No adenopathy. No abdominal aortic aneurysm. Evidence of prior ventral abdominal wall hernia repair. Sections through the pelvis show a OAKES catheter in the bladder. Dome 1.9 cm subserosal fibroid arising from the lateral aspect of the uterine body is unchanged. Status post L3-L5 laminectomy. Spina bifida at the level of the sacrum. No acute finding the regional skeleton. CT/Abdomen/Pelvis without Cont IMPRESSION: A 0.5 cm nonobstructing stone in the lower pole of the right kidney. Diffuse hepatic steatosis. Other chronic findings as above. Electronically Signed: Enzo Brunson MD at 2:17 EDT Tel , Service support ,
--- NOTE | 2021-02-23 00:23 | EDS_ITS ---
HPI History of Present Illness Chief Complaint: Complaint Informant: patient Onset/Context/Timing Onset: Weeks Context: Gradual Onset Current Severity: Moderate Maximum Severity: Moderate Narrative Narrative: Patient presents with 1 week history of right flank and bladder pain. She has a history of neurogenic bladder and bladder has a suprapubic catheter. She states she tends to get frequent infections especially right before the catheter is due to be changed. She does report chills but no fever. She reports some nausea and vomiting. Tonight she noted some chest tightness. [facility] Medical History Anxiety and depression Arthritis Cellulitis of left lower extremity Chronic back pain Chronic nausea Constipation Delayed wound healing Diabetes mellitus, type II Diabetic polyneuropathy Diabetic ulcer of left heel with fat layer exposed DJD (degenerative joint disease) of thoracic spine Dysthymic disorder Essential hypertension Hematochezia History of kidney stones History of migraine Hydronephrosis of right kidney Hyperglycemia Hyperlipidemia Infection of bladder catheter Insomnia Lipomeningocele Lower extremity edema Morbid obesity with BMI of 40.0-44.9, adult Neurogenic bladder Neurogenic bowel Non-compliance Non-smoker Normochromic normocytic anemia Panic attacks PSVT (paroxysmal supraventricular tachycardia) Sepsis Sepsis Spina bifida aperta of lumbar spine Thyroid cyst Type 2 diabetes mellitus with diabetic polyneuropathy Ulcer of left heel and midfoot with fat layer exposed Uninodular goiter Urinary tract infection UTI (urinary tract infection) UTI (urinary tract infection) Weakness Home Medications furosemide 20 mg PO DAILY@1700 08/28/18 [History Last Taken 12/22/20] furosemide 40 mg PO BREAKFAST 04/05/19 [History Last Taken 12/22/20] insulin glargine 100 unit/mL (3 mL) subcutaneous pen 33 unit SC QHS 11/01/19 [History Last Taken 12/21/20] oxybutynin chloride 15 mg tablet,extended release 24 hr 15 mg PO DAILY 11/12/19 [History Last Taken 12/22/20] propranolol 10 mg PO BID 01/13/20 [History Last Taken 12/22/20] acetaminophen 1,000 mg PO TID PRN PRN 02/12/20 [History Last Taken 09/24/20 19:24] phenazopyridine 200 mg PO BID PRN PRN #10 tab 07/13/20 [Rx Last Taken 12/19/20] trazodone 100 mg PO QHS 01/19/21 [History Last Taken Unknown] amoxicillin-pot clavulanate [Augmentin] 1 tab PO BID #14 tab 01/22/21 [Rx Last Taken Unknown] atorvastatin 80 mg tablet 20 mg PO DAILY tab 01/29/21 [History Last Taken Unknown] insulin aspart (niacinamide)(U-100) 100 unit/mL(3 mL) subcutaneous pen ml SUBCUT 01/29/21 [History Last Taken Unknown] lisinopril 5 mg tablet 5 mg PO DAILY #90 tab 01/29/21 [Rx Last Taken Unknown] Allergy/AdvReac Type Severity Reaction Status Date / Time mushroom Allergy Anaphylaxis Verified 02/23/21 00:06 peanut Allergy Anaphylaxis Verified 02/23/21 00:06 Gadolinium-MRI Contrast AdvReac Vomiting Verified 02/23/21 00:06 Medium Latex, Natural Rubber AdvReac Rash Verified 02/23/21 00:06 Family History Mother CVA (cerebral vascular accident) Thyroid disorder Diabetes Hypertension Heart disease Hyperlipidemia Myocardial infarction, Onset Age: 54 mother had diabetes Father Cancer skin Grandmother Cancer liver Other Arthritis Skin cancer Surgical History history insertion suprapubic catheter History of cholecystectomy History of dilation and curettage History of spinal surgery Hx of foot surgery Hx of ventral hernia repair S/P thyroid biopsy (~11/06/19) Status post gastric surgery Social History household members: significant other Smoking Status: Never smoker alcohol intake: current substance use type: does not use ROS ROS ED Constitutional Constitutional ED: Reports chills; Denies fever(s) Eyes Eyes: Denies change in vision ENT ENT ED: Denies sore throat Cardiovascular Cardiovascular: Reports chest pain Respiratory/Chest Respiratory/Chest: Denies cough or dyspnea Gastrointestinal Gastrointestinal: Reports abdominal pain, nausea and vomiting; Denies diarrhea Musculoskeletal Musculoskeletal: Reports back pain Integumentary Denies rash Neurologic Neurologic: Denies headache(s) or weakness Allergic/Immunologic Allergic/Immunologic ED: Denies urticaria EXAM Physical Exam Const Vital Signs: 02/23/21 00:04 02/23/21 00:06 02/23/21 01:10 Temperature 97.6 F L 97.6 F L 97.2 F L Temperature Source Temporal Temporal Temporal Pulse Rate 104 H 104 H 88 Respiratory Rate 18 18 16 Blood Pressure 138/99 H 138/99 H 129/70 H Blood Pressure Mean 112 112 89 Pulse Ox 98 98 99 Oxygen Delivery Method Room Air Room Air Room Air 02/23/21 04:36 Temperature Temperature Source Pulse Rate 86 Respiratory Rate 17 Blood Pressure 117/79 Blood Pressure Mean Pulse Ox 97 Oxygen Delivery Method Positive well nourished and well developed General Appearance ED: well developed HEENT Reports moist mucous membranes Eyes PERRL and EOMs intact bilaterally Neck supple Chest Wall inspection of chest normal and palpation of chest normal Resp normal respiratory effort and clear to auscultation bilaterally Cardio regular rate and regular rhythm GI Palpation: soft and tender other (Right flank tenderness.) Back/Spine General Back: CVA tenderness Extremity normal to inspection Neuro oriented x3 Sensorium / Orientation: alert Psych mental status grossly normal Skin no rashes or lesions noted MDM MDM MDM Narrative Medical decision making narrative: Patient was given morphine and Zofran for pain. Lab work, urinalysis, CT flank obtained. Lab Data Attestation: I reviewed the patient's lab results. Labs: Laboratory Results - last 24 hr 02/23/21 02/23/21 02/23/21 00:40 00:40 00:40 WBC 11.6 H RBC 4.76 Hgb 14.5 Hct 43.5 MCV 91.4 MCH 30.5 MCHC 33.3 RDW Std Deviation 44.5 H RDW Coeff of Claude 13.2 Plt Count 208 MPV 11.5 Immature Gran % (Auto) 1.500 H Neut % (Auto) 56.9 Lymph % (Auto) 29.1 [place] % (Auto) 9.5 Eos % (Auto) 2.1 Baso % (Auto) 0.9 Absolute Neuts (auto) 6.6 Absolute Lymphs (auto) 3.38 Nucleated RBC % 0.2 Differential Comment SCANNED Platelet Estimate ADEQUATE Sodium 134 L Potassium 5.1 Chloride 106 Carbon Dioxide 21.0 Anion Gap 7 BUN 8 Creatinine 0.90 Estim Creat Clear Calc 66.37 Est GFR (MDRD) Af Amer 89 Est GFR (MDRD) Non-Af 74 BUN/Creatinine Ratio 8.9 L Glucose 384 H Lactic Acid 2.6 H* Calcium 9.5 Serum , Qual Urine Color Urine Clarity Urine pH Ur Specific [place] Urine Protein Urine Glucose (UA) Urine Ketones Urine Occult Blood Urine Nitrite Urine Bilirubin Urine Urobilinogen Ur Leukocyte Esterase 02/23/21 02/23/21 00:40 00:55 WBC RBC Hgb Hct MCV MCH MCHC RDW Std Deviation RDW Coeff of Claude Plt Count MPV Immature Gran % (Auto) Neut % (Auto) Lymph % (Auto) [place] % (Auto) Eos % (Auto) Baso % (Auto) Absolute Neuts (auto) Absolute Lymphs (auto) Nucleated RBC % Differential Comment Platelet Estimate Sodium Potassium Chloride Carbon Dioxide Anion Gap BUN Creatinine Estim Creat Clear Calc Est GFR (MDRD) Af Amer Est GFR (MDRD) Non-Af BUN/Creatinine Ratio Glucose Lactic Acid Calcium Serum , Qual NEGATIVE Urine Color Yellow Urine Clarity Sl. Cloudy Urine pH 6.0 Ur Specific [place] 1.010 Urine Protein 100 H Urine Glucose (UA) 1000 H Urine Ketones Negative Urine Occult Blood 50 H Urine Nitrite Positive H Urine Bilirubin Negative Urine Urobilinogen Normal Ur Leukocyte Esterase 500 H Radiography Diagnostic Testing: Radiology Impression Abdomen/Pelvis CT 02/23/21 00:22 IMPRESSION: A 0.5 cm nonobstructing stone in the lower pole of the right kidney. Diffuse hepatic steatosis. Other chronic findings as above. Electronically Signed: Enzo Brunson MD at 2:17 EDT Tel , Service support , Treatment and Re-Evaluation Comments:: White blood cell count is mildly elevated 11.6. Blood sugar is elevated at 384. Creatinine is normal at 0.90. Lactic acid is 2.6. Urinalysis shows positive nitrites, greater than 100 white cells, 3+ bacteria. CT flank reveals a 0.5 cm nonobstructing stone in the lower pole the right kidney. Diffuse hepatic steatosis is noted. Other chronic findings, but no acute inflammatory changes noted. Test results discussed with the patient. She was given IV fluid here for hydration. I did review her most recent admission note. She was discharged home on Augmentin at that time and did very well. She will be given Augmentin again along with Zofran to help control nausea. If patient fails outpatient therapy she will require IV antibiotics. She voices understanding and agreement. Discharge Plan Triage Chief Complaint: Complaint ED Provider: Taya Wong Dx/Rx/DC Orders Clinical Impression: Pyelonephritis Prescriptions: No Action Lantus Solostar U-100 Insulin 100 unit/mL (3 mL) insulin pen 33 unit SC QHS RF: 0 Fiasp FlexTouch U-100 Insulin 100 unit/mL (3 mL) insulin pen subcut RF: 0 atorvastatin 80 mg tablet 20 mg PO DAILY RF: 0 lisinopril 5 mg tablet 5 mg PO DAILY Qty: 90 RF: 3 furosemide 20 MG tablet 20 mg PO DAILY@1700 RF: 0 furosemide 40 MG tablet 40 mg PO BREAKFAST RF: 0 oxybutynin chloride 15 mg tablet extended release 24hr 15 mg PO DAILY RF: 0 propranolol 10 MG tablet 10 mg PO BID RF: 0 acetaminophen 500 MG tablet 1,000 mg PO TID PRN PRN (Reason: Pain Or Fever) RF: 0 phenazopyridine 200 MG tablet 200 mg PO BID PRN PRN (Reason: Pain) Qty: 10 RF: 0 trazodone 100 mg tablet 100 mg PO QHS RF: 0 amoxicillin-pot clavulanate [Augmentin] 875-125 mg tablet 1 tab PO BID Qty: 14 RF: 0 Primary Care Provider: Will Shukla Referrals: Will Shukla MD [Primary Care Provider] - Disposition Disposition: Home, Self Care Discharge Date/Time: 02/23/21 04:00
[2021-02-23 00:55] LABS: Absolute Lymphocyte Count 3.38 X10^3/uL (0.83-4.51); Absolute Neutrophil Count 6.6 X10^3/uL (2.0-7.7); Basophil% 0.9 % (0-1); Eosinophil# 0.24 X10^3/uL; Eosinophils% 2.1 % (0-5); Hematocrit 43.5 % (37-47); Hemoglobin 14.5 g/dL (12.0-15.0); Lymphocyte # 3.38 X10^3/ul (0.83-4.51); Lymphocyte % 29.1 % (19-41); Mean Corp Hgb Conc 33.3 g/dL (32-36); Mean Corpuscular Hgb 30.5 pg (27.0-32.0); Mean Corpuscular Volume 91.4 fL (81-99); Mean Platelet Vol. 11.5 fl (6.2-12.0); Monocyte% 9.5 % (0-10); NRBC Flagged by Analyzer 0.2 % (0-5); Neutrophil # 6.63 X10^3/uL (2.7-7.7); Neutrophil % 56.9 % (47-70); POSITIVE COUNT YES; Platelet Count 208 K/mm3 (150-450); RBC Distribution Width CV 13.2 % (11.6-14.6); RBC Distribution Width SD 44.5 fl (35.1-43.9); Red Blood Count 4.76 M/mm3 (4.2-5.4); White Blood Count 11.6 K/mm3 (4.4-11.0)
[2021-02-23 00:56] LABS: Differential Indicated SCAN CRITERIA MET
[2021-02-23] MEDS: 0.9% Normal Saline 1,000 ML 150 ML IV (01:05)
[2021-02-23] MEDS: Morphine 4 MG/ML Syringe IV (01:06)
[2021-02-23] MEDS: Ondansetron 4 MG/2 ML Vial IV (01:06)
[2021-02-23 01:10] VITALS: BP 129/70; PULSE 88; RESP 16; TEMP 36.2; O2SAT 99
[2021-02-23 01:10] LABS: Mucous, Urine 0 SEEN /hpf (<or=2+); Red Blood Cells-Urine 0 SEEN /hpf (0-5); Squamous Epithelial Cells - UA 0 SEEN /hpf (5-10)
[2021-02-23 01:13] LABS: Differential Comment SCANNED; Platelet Estimate ADEQUATE (ADEQ)
[2021-02-23 01:15] LABS: Anion Gap 7 (5-15); BUN 8 mg/dL (7-18); BUN/Creat Ratio 8.9 RATIO (10-20); Calcium,Total 9.5 mg/dL (8.5-10.1); Chloride 106 mmol/L (98-107); EST Glomerular Filtration Rate 74 mL/min (>60); Est Glom Filt Rate - Afr Amer 89 mL/min (>60); Estimated Creatinine Clearance 66.37 ml/min; Glucose 384 mg/dL (74-106); Potassium 5.1 mmol/L (3.5-5.1); Sodium Level 134 mmol/L (136-145)
[2021-02-23 01:17] LABS: Lactic Acid 2.6 mmol/L (0.4-1.9)
[2021-02-23 01:20] LABS: Internal QC Validated? YES +Cl - CLEAR BKGD; Pregnancy, Serum, hCG Quali. NEGATIVE Negative
[2021-02-23 01:20] LABS: Color, Urine Yellow (Yellow); Glucose, Dipstick 1000 mg/dl (Normal); Ketone-Dipstick Negative (Negative); Leukocyte Esterase-Dipstick 500 /ul (Negative); Nitrite-Dipstick Positive (Negative); Occult Blood-Urine 50 /ul (Negative); Protein-Dipstick 100 mg/dl (Negative); Urine Bilirubin Dipstick Negative (Negative); Urine Clarity Sl. Cloudy (Clear); Urine Urobilinogen Normal (Normal)
--- NOTE | 2021-02-23 04:35 | ED.RN ---
see down time charting from 0 until discharge
[2021-02-23 04:36] VITALS: BP 117/79; PULSE 86; RESP 17; O2SAT 97
[2021-02-23 04:51] LABS: Reflex Lactate? Y
[2021-02-23 07:38] LABS: Bacteria 3+ /hpf (None Seen); White Blood Cells >100 SEEN /hpf (0-5)
== END 2021-02-23 04:00 | disposition home or self-care (01) ==
LOC: ED 00:26
PROVIDERS: Emergency Provider Emergency Medicine; PCP Family Medicine
DX: N13.6 Pyonephrosis (principal); D64.9 Anemia, unspecified; E78.5 Hyperlipidemia, unspecified; F32.9 Major depressive disorder, single episode, unspecified; F41.9 Anxiety disorder, unspecified; G47.00 Insomnia, unspecified; G89.29 Other chronic pain; I10 Essential (primary) hypertension; K59.2 Neurogenic bowel, not elsewhere classified; K76.0 Fatty (change of) liver, not elsewhere classified; Z79.4 Long term (current) use of insulin; Z87.442 Personal history of urinary calculi; Z91.19 Patient's noncompliance with other medical treatment and regimen; E11.9 Type 2 diabetes mellitus without complications
CPT/HCPCS: 74176; 80048; 81001; 83605; 84703; 85025; 87040; 87086; 87088; 87186; 96361; 96374; 96375; 99285; J7030; A4216; J2405

== ENCOUNTER 2021-02-27 22:12 | Emergency (ER) | payer MEDICARE, MEDICAID, SELFPAY ==
[2021-02-27 22:14] VITALS: BP 117/88; PULSE 90; RESP 16; TEMP 36; O2SAT 98; BMI 42.8
[2021-02-27 22:16] VITALS: BP 108/67; BP 117/88; PULSE 80; PULSE 89; RESP 16; RESP 18; TEMP 36; TEMP 36.2; O2SAT 98
--- NOTE | 2021-02-27 22:59 | ED.VIS.FEGU ---
HPI HPI - Female History of Present Illness Chief Complaint: Complaint Informant: patient Pain Onset: Days Timing: Intermittent Current Severity: Mild Maximum Severity: Mild Narrative Narrative: 40-year-old female history of spina bifida, suprapubic catheter, insulin-dependent diabetes and neurogenic bladder. Patient states she was diagnosed with a UTI on 927. Was placed on Augmentin. And has started developed nausea vomiting and right flank pain. She has had episodes of this before. In fact she was admitted to the hospital in December for similar event. Her urine culture from the other day shows E. coli that is basically sensitive to all. Prior similar symptoms: Yes Recent Illness/Hospitalization: Yes PFSH PFS Medical History Anxiety and depression Arthritis Cellulitis of left lower extremity Chronic back pain Chronic nausea Constipation Delayed wound healing Diabetes mellitus, type II Diabetic polyneuropathy Diabetic ulcer of left heel with fat layer exposed DJD (degenerative joint disease) of thoracic spine Dysthymic disorder Essential hypertension Hematochezia History of kidney stones History of migraine Hydronephrosis of right kidney Hyperglycemia Hyperlipidemia Infection of bladder catheter Insomnia Lipomeningocele Lower extremity edema Morbid obesity with BMI of 40.0-44.9, adult Neurogenic bladder Neurogenic bowel Non-compliance Non-smoker Normochromic normocytic anemia Panic attacks PSVT (paroxysmal supraventricular tachycardia) Sepsis Sepsis Spina bifida aperta of lumbar spine Thyroid cyst Type 2 diabetes mellitus with diabetic polyneuropathy Ulcer of left heel and midfoot with fat layer exposed Uninodular goiter Urinary tract infection UTI (urinary tract infection) UTI (urinary tract infection) Weakness Home Medications furosemide 20 mg PO DAILY@1700 08/28/18 [History Last Taken 12/22/20] furosemide 40 mg PO BREAKFAST 04/05/19 [History Last Taken 12/22/20] insulin glargine 100 unit/mL (3 mL) subcutaneous pen 33 unit SC QHS 11/01/19 [History Last Taken 12/21/20] oxybutynin chloride 15 mg tablet,extended release 24 hr 15 mg PO DAILY 11/12/19 [History Last Taken 12/22/20] propranolol 10 mg PO BID 01/13/20 [History Last Taken 12/22/20] acetaminophen 1,000 mg PO TID PRN PRN 02/12/20 [History Last Taken 09/24/20 19:24] phenazopyridine 200 mg PO BID PRN PRN #10 tab 07/13/20 [Rx Last Taken 12/19/20] trazodone 100 mg PO QHS 01/19/21 [History Last Taken Unknown] amoxicillin-pot clavulanate [Augmentin] 1 tab PO BID #14 tab 01/22/21 [Rx Last Taken Unknown] atorvastatin 80 mg tablet 20 mg PO DAILY tab 01/29/21 [History Last Taken Unknown] insulin aspart (niacinamide)(U-100) 100 unit/mL(3 mL) subcutaneous pen ml SUBCUT 01/29/21 [History Last Taken Unknown] lisinopril 5 mg tablet 5 mg PO DAILY #90 tab 01/29/21 [Rx Last Taken Unknown] Allergy/AdvReac Type Severity Reaction Status Date / Time mushroom Allergy Anaphylaxis Verified 02/23/21 00:06 peanut Allergy Anaphylaxis Verified 02/23/21 00:06 Gadolinium-MRI Contrast AdvReac Vomiting Verified 02/23/21 00:06 Medium Latex, Natural Rubber AdvReac Rash Verified 02/23/21 00:06 Family History Mother CVA (cerebral vascular accident) Thyroid disorder Diabetes Hypertension Heart disease Hyperlipidemia Myocardial infarction, Onset Age: 54 mother had diabetes Father Cancer skin Grandmother Cancer liver Other Arthritis Skin cancer Surgical History history insertion suprapubic catheter History of cholecystectomy History of dilation and curettage History of spinal surgery Hx of foot surgery Hx of ventral hernia repair S/P thyroid biopsy (~11/06/19) Status post gastric surgery Social History household members: significant other Smoking Status: Never smoker alcohol intake: current substance use type: does not use ROS ROS ED ROS Narrative Right flank pain. Nausea and vomiting. Review of Systems ROS Unobtainable: Denies due to encephalopathy Constitutional Constitutional ED: Denies fever(s) Eyes Eyes: Denies change in vision ENT ENT ED: Denies ear pain Cardiovascular Cardiovascular: Denies chest pain Respiratory/Chest Respiratory/Chest: Denies dyspnea Gastrointestinal Gastrointestinal: Reports nausea and vomiting; Denies abdominal pain Genitourinary Genitourinary ED: Denies dysuria Musculoskeletal Musculoskeletal: Denies myalgias Integumentary Denies rash Neurologic Neurologic: Denies headache(s) Psychiatric Psychiatric: Denies depression Endocrine Endocrinology: Denies polyuria Hematologic/Lymphatic Hematologic/Lymphatic: Denies easy bruising Allergic/Immunologic Allergic/Immunologic ED: Denies urticaria EXAM Physical Exam Narrative Exam Narrative: Middle-aged female no acute distress. Vital signs stable afebrile. HEENT exam moist weeks membranes. Neck nontender. Lungs clear to auscultation. Heart regular rhythm rate about 90. Abdomen soft nondistended normal bowel sounds no peritoneal signs. No signs of obstruction. Suprapubic catheter. Back right CVA tenderness. Left unremarkable. Neurologically she is awake and alert. Const Vital Signs: 02/27/21 22:14 02/27/21 22:16 02/27/21 23:16 Temperature 96.8 F L 97.2 F L 97.5 F L Temperature Source Temporal Temporal Temporal Pulse Rate 90 80 89 Respiratory Rate 16 16 16 Blood Pressure 117/88 H 108/67 108/78 Blood Pressure Mean 97 80 88 Pulse Ox 98 98 99 Oxygen Delivery Method Room Air Room Air Room Air 02/28/21 00:00 02/28/21 00:13 02/28/21 01:00 Temperature 97.6 F L 97.4 F L Temperature Source Temporal Temporal Pulse Rate 87 88 87 Respiratory Rate 16 16 16 Blood Pressure 107/68 108/65 120/77 Blood Pressure Mean 81 79 91 Pulse Ox 98 99 98 Oxygen Delivery Method Room Air Room Air Room Air Positive well nourished, well developed and obese; Negative for cachectic, contractures or unkempt General Appearance ED: well developed and NAD; Negative for unkempt, cachectic or contractures Nutritional Appearance: obese; Negative for cachectic HEENT Reports moist mucous membranes Negative for trauma or tenderness Eyes PERRL and EOMs intact bilaterally Neck no lymphadenopathy, supple and no JVD Thyroid: Negative for tender Chest Wall inspection of chest normal and palpation of chest normal Resp normal respiratory effort and clear to auscultation bilaterally Cardio regular rate, regular rhythm, S1 normal heart sound, no murmurs and no JVD GI normal to inspection, nondistended, normoactive bowel sounds, soft to palpation, non-tender, non-distended and no masses Auscultation: normoactive bowel sounds Palpation: Negative for tender, guarding or rigid Negative for no CVA tenderness Back/Spine Negative for no CVA tenderness General Back: CVA tenderness Extremity General Extremety ED: Negative for edema or tenderness General Extremity: Negative for edema Neuro oriented x3 Sensorium / Orientation: alert, oriented to person, oriented to place and oriented to time Motor Exam: Negative for strength 5/5 throughout Psych mental status grossly normal Appearance: Negative for unkempt Skin no rashes or lesions noted and no wounds MDM MDM MDM Narrative Medical decision making narrative: 40-year-old female history of UTIs. History of spina bifida with neurogenic bladder and chronic indwelling Morales catheter. Was diagnosed with a UTI on 927. Has been on Augmentin for last several days. Now is having nausea vomiting and flank pain. Screening labs are being obtained. I reviewed her CAT scan from the other day which showed no kidney stones. In her urine which was sensitive to all. She will be given IV Rocephin, morphine and Zofran. Also Toradol. And labs are being obtained. Also IV fluids. Repeat exam patient is doing well. We went over her lab test. Clinically she looks good. I find no reason to admit her to the hospital. She is comfortable with going home. She is hyperglycemic with a blood sugar of 410 I offered to give her subcu insulin here she preferred to take hers at home. She is already on antibiotics at home and nausea medication for her UTI. I reviewed her imaging from the other day and there was no kidney stone. Lab Data Attestation: I reviewed the patient's lab results. Lab results narrative: CBC White count of 10. Hemoglobin 12. No bands. Electrolytes sodium 135. Gap 6. Normal BUN and creatinine of 1. Glucose 410. Labs: Laboratory Results - last 24 hr 02/27/21 02/27/21 22:50 22:50 WBC 10.4 RBC 4.23 Hgb 12.9 Hct 38.2 MCV 90.3 MCH 30.5 MCHC 33.8 RDW Std Deviation 43.4 RDW Coeff of Claude 13.2 Plt Count 207 MPV 11.2 Immature Gran % (Auto) 1.700 H Neut % (Auto) 58.0 Lymph % (Auto) 26.9 [place] % (Auto) 10.5 H Eos % (Auto) 2.1 Baso % (Auto) 0.8 Absolute Neuts (auto) 6.0 Absolute Lymphs (auto) 2.78 Nucleated RBC % 0 Sodium 135 L Potassium 4.4 Chloride 104 Carbon Dioxide 25.0 Anion Gap 6 BUN 12 Creatinine 1.00 Estim Creat Clear Calc 59.74 Est GFR (MDRD) Af Amer 79 Est GFR (MDRD) Non-Af 66 BUN/Creatinine Ratio 12.0 Glucose 410 H Calcium 9.2 Discharge Plan Triage Chief Complaint: Complaint ED Provider: Kevin Barcenas Dx/Rx/DC Orders Clinical Impression: Hyperglycemia due to type 2 diabetes mellitus, UTI (urinary tract infection) Instructions: ED Diabetic Hyperglycemia, ED CYSTITIS Female Adult Prescriptions: No Action Lantus Solostar U-100 Insulin 100 unit/mL (3 mL) insulin pen 33 unit SC QHS RF: 0 Fiasp FlexTouch U-100 Insulin 100 unit/mL (3 mL) insulin pen subcut RF: 0 atorvastatin 80 mg tablet 20 mg PO DAILY RF: 0 lisinopril 5 mg tablet 5 mg PO DAILY Qty: 90 RF: 3 furosemide 20 MG tablet 20 mg PO DAILY@1700 RF: 0 furosemide 40 MG tablet 40 mg PO BREAKFAST RF: 0 oxybutynin chloride 15 mg tablet extended release 24hr 15 mg PO DAILY RF: 0 propranolol 10 MG tablet 10 mg PO BID RF: 0 acetaminophen 500 MG tablet 1,000 mg PO TID PRN PRN (Reason: Pain Or Fever) RF: 0 phenazopyridine 200 MG tablet 200 mg PO BID PRN PRN (Reason: Pain) Qty: 10 RF: 0 trazodone 100 mg tablet 100 mg PO QHS RF: 0 amoxicillin-pot clavulanate [Augmentin] 875-125 mg tablet 1 tab PO BID Qty: 14 RF: 0 Primary Care Provider: Will Shukla Referrals: Will Shukla MD [Primary Care Provider] - 3-5 Days if not improving Activity Restrictions/Additional Instructions: Your labs today were good. Your last CAT scan showed no stone. Plenty of fluids and rest. Continue your current antibiotic. Continue your nausea medications as needed. Watch your blood sugars closely and take your insulin tonight before you go to bed and recheck your blood sugar before you go to bed. Follow-up with your primary care physician if not improving or return if feeling worse. Disposition Disposition: Home, Self Care
[2021-02-27 23:16] VITALS: BP 108/78; PULSE 89; RESP 16; TEMP 36.4; O2SAT 99
[2021-02-27 23:34] LABS: Anion Gap 6 (5-15); BUN 12 mg/dL (7-18); Calcium,Total 9.2 mg/dL (8.5-10.1); Chloride 104 mmol/L (98-107); EST Glomerular Filtration Rate 66 mL/min (>60); Est Glom Filt Rate - Afr Amer 79 mL/min (>60); Estimated Creatinine Clearance 59.74 ml/min; Glucose 410 mg/dL (74-106); Potassium 4.4 mmol/L (3.5-5.1); Sodium Level 135 mmol/L (136-145)
[2021-02-27 23:46] LABS: Absolute Lymphocyte Count 2.78 X10^3/uL (0.83-4.51); Basophil# 0.08 X10^3/uL; Basophil% 0.8 % (0-1); Eosinophil# 0.22 X10^3/uL; Eosinophils% 2.1 % (0-5); Hematocrit 38.2 % (37-47); Hemoglobin 12.9 g/dL (12.0-15.0); Lymphocyte # 2.78 X10^3/ul (0.83-4.51); Lymphocyte % 26.9 % (19-41); Mean Corp Hgb Conc 33.8 g/dL (32-36); Mean Corpuscular Hgb 30.5 pg (27.0-32.0); Mean Corpuscular Volume 90.3 fL (81-99); Mean Platelet Vol. 11.2 fl (6.2-12.0); Monocyte# 1.09 X10^3/uL; Monocyte% 10.5 % (0-10); NRBC Flagged by Analyzer 0 % (0-5); Platelet Count 207 K/mm3 (150-450); RBC Distribution Width CV 13.2 % (11.6-14.6); RBC Distribution Width SD 43.4 fl (35.1-43.9); Red Blood Count 4.23 M/mm3 (4.2-5.4); White Blood Count 10.4 K/mm3 (4.4-11.0)
[2021-02-27] MEDS: Ondansetron 4 MG/2 ML Vial IV (23:53)
[2021-02-27] MEDS: Ketorolac 15 MG/ML Vial IV (23:53)
[2021-02-27] MEDS: 0.9% Normal Saline 1,000 ML 1000 ML IV (23:54)
[2021-02-27] MEDS: Morphine 4 MG/ML Syringe 6 MG IV (23:58)
[2021-02-27] MEDS: Ceftriaxone 1 GM/50 ML BAG IV (23:58)
[2021-02-28] VITALS: BP 107/68; PULSE 87; RESP 16; TEMP 36.4; O2SAT 98
[2021-02-28 00:13] VITALS: BP 108/65; PULSE 88; RESP 16; O2SAT 99
[2021-02-28 01:00] VITALS: BP 120/77; PULSE 87; RESP 16; TEMP 36.3; O2SAT 98
[2021-02-28 02:09] VITALS: BP 102/75; PULSE 65; RESP 18; TEMP 36.4; O2SAT 97
== END 2021-02-28 02:13 | disposition home or self-care (01) ==
PROVIDERS: Emergency Provider Emergency Medicine; PCP Family Medicine
DX: N39.0 Urinary tract infection, site not specified (principal); D64.9 Anemia, unspecified; E11.65 Type 2 diabetes mellitus with hyperglycemia; E66.01 Morbid (severe) obesity due to excess calories; E78.5 Hyperlipidemia, unspecified; F32.A Depression, unspecified; F41.9 Anxiety disorder, unspecified; G47.00 Insomnia, unspecified; I10 Essential (primary) hypertension; G89.29 Other chronic pain; Q05.9 Spina bifida, unspecified; Z68.41 Body mass index [BMI] 40.0-44.9, adult; Z79.4 Long term (current) use of insulin; Z91.19 Patient's noncompliance with other medical treatment and regimen; Z87.442 Personal history of urinary calculi; Z87.440 Personal history of urinary (tract) infections
CPT/HCPCS: 80048; 85025; 96365; 96375; 99283; J7030; A4216; J2405

== ENCOUNTER 2021-03-23 00:21 | Emergency (ER) | payer MEDICARE, MEDICAID, SELFPAY ==
[2021-03-23 00:21] VITALS: PULSE 95; RESP 18; TEMP 36.3; O2SAT 95; BMI 41.5
[2021-03-23 00:24] VITALS: BP 128/96; PULSE 95; RESP 18; TEMP 36.3; O2SAT 95
--- NOTE | 2021-03-23 00:46 | CT_ITS ---
STUDY: CT ABDOMEN AND PELVIS WITHOUT CONTRAST REASON FOR EXAM: Female, 40 years old. Flank pain RADIATION DOSAGE (If Supplied By Facility): CTDIvol = ( 19.35 ) mGy, DLP = ( 986.01 ) mGycm TECHNIQUE: Transaxial images were obtained from the dome of the diaphragm to the symphysis pubis without oral contrast, and without intravenous contrast. Sagittal and coronal images were reconstructed. Individualized dose optimization techniques were used for this CT. COMPARISON: None. FINDINGS: The visualized lung bases are unremarkable. The visualized portions of the heart are within normal limits. Normal liver. There are surgical clips in the gallbladder fossa consistent with a prior cholecystectomy. Normal spleen. Normal pancreas. Normal bilateral adrenal glands. There is moderate cortical atrophy of the right kidney, consistent with chronic medical renal disease. There is 6mm nonobstructive stone lower pole of the right kidney. There is no hydronephrosis. Normal left kidney. Normal visualized stomach. Normal small intestine. Normal colon. There is non-visualization of the appendix. Normal abdominal aorta. Normal inferior vena cava. Normal retroperitoneum. Normal urinary bladder. Suprapubic catheter in good position Normal abdominal wall. Normal osseous structures. CT/Abdomen/Pelvis without Cont IMPRESSION: There is moderate cortical atrophy of the right kidney, consistent with chronic medical renal disease. There is 6mm nonobstructive stone lower pole of the right kidney. There is no hydronephrosis. Electronically Signed: Reymundo Cespedes MD at 2:12 EDT Tel , Service support ,
[2021-03-23] MEDS: Morphine 4 MG/ML Syringe IV (01:06)
[2021-03-23] MEDS: Ondansetron 4 MG/2 ML Vial IV (01:06)
[2021-03-23] MEDS: 0.9% Normal Saline 1,000 ML 1000 ML IV (01:08)
[2021-03-23 01:12] LABS: Absolute Lymphocyte Count 3.08 X10^3/uL (0.83-4.51); Basophil# 0.09 X10^3/uL; Basophil% 0.7 % (0-1); Eosinophil# 0.24 X10^3/uL; Eosinophils% 1.9 % (0-5); Hematocrit 42.5 % (37-47); Hemoglobin 14.1 g/dL (12.0-15.0); Lymphocyte # 3.08 X10^3/ul (0.83-4.51); Lymphocyte % 24.5 % (19-41); Mean Corp Hgb Conc 33.2 g/dL (32-36); Mean Corpuscular Hgb 29.9 pg (27.0-32.0); Mean Platelet Vol. 10.9 fl (6.2-12.0); Monocyte# 1.05 X10^3/uL; Monocyte% 8.3 % (0-10); NRBC Flagged by Analyzer 0 % (0-5); Neutrophil # 7.99 X10^3/uL (2.7-7.7); Neutrophil % 63.5 % (47-70); Platelet Count 240 K/mm3 (150-450); RBC Distribution Width CV 12.4 % (11.6-14.6); RBC Distribution Width SD 41.1 fl (35.1-43.9); Red Blood Count 4.72 M/mm3 (4.2-5.4); White Blood Count 12.6 K/mm3 (4.4-11.0)
--- NOTE | 2021-03-23 01:17 | EDS_ITS ---
HPI History of Present Illness Chief Complaint: Complaint Narrative Narrative: Patient presenting for evaluation due to concern for possible pyelonephritis flank pain. Patient has a underlying history of a suprapubic catheter secondary to neurogenic bladder from spina bifida. She reports a frequent history of urinary tract infections and pyelonephritis, also states that she has had a past history of around 2 kidney stones in the past. Patient tells me that she has been dealing with right-sided flank pain over the course the last couple of days. Is been associated with some chills no objective fevers. She also had some nausea but no vomiting. She reports that she has had a change in color or character and smell of her urine that is more characteristic with her developing a urinary tract infection. Patient tells me that today when she had a bowel movement she had to strain as she typically does have constipation and she noted a small amount of blood. She was not sure if this blood was urethral or rectal, but it was very small in amounts. She denies any persistent bleeding. Patient is not anticoagulated. Pain is moderate has no real exacerbating relieving factors. Review of systems otherwise negative. [facility] Medical History Anxiety and depression Arthritis Cellulitis of left lower extremity Chronic back pain Chronic nausea Constipation Delayed wound healing Diabetes mellitus, type II Diabetic polyneuropathy Diabetic ulcer of left heel with fat layer exposed DJD (degenerative joint disease) of thoracic spine Dysthymic disorder Essential hypertension Hematochezia History of kidney stones History of migraine Hydronephrosis of right kidney Hyperglycemia Hyperlipidemia Infection of bladder catheter Insomnia Lipomeningocele Lower extremity edema Morbid obesity with BMI of 40.0-44.9, adult Neurogenic bladder Neurogenic bowel Non-compliance Non-smoker Normochromic normocytic anemia Panic attacks PSVT (paroxysmal supraventricular tachycardia) Sepsis Sepsis Spina bifida aperta of lumbar spine Thyroid cyst Type 2 diabetes mellitus with diabetic polyneuropathy Ulcer of left heel and midfoot with fat layer exposed Uninodular goiter Urinary tract infection UTI (urinary tract infection) UTI (urinary tract infection) Weakness Home Medications furosemide 20 mg PO DAILY@1700 08/28/18 [History Last Taken 12/22/20] furosemide 40 mg PO BREAKFAST 04/05/19 [History Last Taken 12/22/20] insulin glargine 100 unit/mL (3 mL) subcutaneous pen 30 unit SC QHS 11/01/19 [History Last Taken 12/21/20] oxybutynin chloride 15 mg tablet,extended release 24 hr 15 mg PO DAILY 11/12/19 [History Last Taken 12/22/20] propranolol 10 mg PO BID 01/13/20 [History Last Taken 12/22/20] acetaminophen 1,000 mg PO TID PRN PRN 02/12/20 [History Last Taken 09/24/20 19:24] phenazopyridine 200 mg PO BID PRN PRN #10 tab 07/13/20 [Rx Last Taken 12/19/20] trazodone 100 mg PO QHS 01/19/21 [History Last Taken Unknown] atorvastatin 80 mg tablet 20 mg PO DAILY tab 01/29/21 [History Last Taken Unknown] insulin aspart (niacinamide)(U-100) 100 unit/mL(3 mL) subcutaneous pen ml SUBCUT 01/29/21 [History Last Taken Unknown] lisinopril 5 mg tablet 5 mg PO DAILY #90 tab 01/29/21 [Rx Last Taken Unknown] pen needle, diabetic 32 gauge x #400 ea 03/05/21 [Rx Last Taken Unknown] levofloxacin 750 mg PO DAILY #7 tab 03/23/21 [Rx Last Taken Unknown] Allergy/AdvReac Type Severity Reaction Status Date / Time mushroom Allergy Anaphylaxis Verified 03/05/21 15:48 peanut Allergy Anaphylaxis Verified 03/05/21 15:48 Gadolinium-MRI Contrast AdvReac Vomiting Verified 03/05/21 15:48 Medium Latex, Natural Rubber AdvReac Rash Verified 03/05/21 15:48 Family History Mother CVA (cerebral vascular accident) Thyroid disorder Diabetes Hypertension Heart disease Hyperlipidemia Myocardial infarction, Onset Age: 54 mother had diabetes Father Cancer skin Grandmother Cancer liver Other Arthritis Skin cancer Surgical History history insertion suprapubic catheter History of cholecystectomy History of dilation and curettage History of spinal surgery Hx of foot surgery Hx of ventral hernia repair S/P thyroid biopsy (~11/06/19) Status post gastric surgery Social History household members: significant other Smoking Status: Never smoker alcohol intake: current substance use type: does not use ROS ROS ED Constitutional Constitutional ED: Reports chills ENT ENT ED: Denies rhinorrhea Cardiovascular Cardiovascular: Denies chest pain Respiratory/Chest Respiratory/Chest: Denies cough or dyspnea Gastrointestinal Gastrointestinal: Reports abdominal pain and nausea Genitourinary Genitourinary ED: Reports other Details: Flank pain and foul-smelling urine Musculoskeletal Musculoskeletal: Denies back pain Integumentary Denies rash Neurologic Neurologic: Denies paresthesias or weakness Psychiatric Psychiatric: Denies depression Endocrine Endocrinology: Denies fatigue Allergic/Immunologic Allergic/Immunologic ED: Denies urticaria EXAM Physical Exam Const Vital Signs: 03/23/21 00:21 03/23/21 00:24 Temperature 97.4 F L 97.4 F L Temperature Source Temporal Temporal Pulse Rate 95 95 Respiratory Rate 18 18 Blood Pressure 128/96 H Blood Pressure Mean 106 Pulse Ox 95 95 Oxygen Delivery Method Room Air Room Air Positive well nourished and well developed Constitutional Narrative: Age-appropriate female sitting upright in the bed not acutely distressed General Appearance ED: well developed and NAD HEENT Reports moist mucous membranes Negative for trauma or tenderness Eyes EOMs intact bilaterally Neck no lymphadenopathy, supple and no JVD Chest Wall inspection of chest normal Resp normal respiratory effort and clear to auscultation bilaterally Cardio regular rate, regular rhythm, no murmurs and peripheral pulses 2+ throughout GI GI Narrative: Suprapubic catheter is in place, site is clean dry and intact. Patient complains of some right sided abdominal and right-sided flank tenderness to percussion. There is no guarding or rebound or evidence of diffuse peritonitis. Back/Spine normal to inspection Extremity normal to inspection General Extremety ED: Negative for tenderness Neuro oriented x3 and no sensory deficits noted Sensorium / Orientation: alert Motor Exam: strength 5/5 throughout Psych mental status grossly normal Skin no rashes or lesions noted MDM MDM MDM Narrative Medical decision making narrative: Patient presented due to concerns for UTI. Pt was given morphine and zofran and fluids for treatment of symptoms. CBC demonstrated leukocytosis of 12.6. BMP was unremarkable other than hyperglycemia. The patient's urine did appear infected but the patient is chronically catheterized. Urine was cultured and she was given a dose of rocephin. CT was performed and shows no acute processes. Pt continued to have some pain and was given a dose of norco in the emergency dept. I reviewed her micro and it showed a culture that had multiple pathogens that were sensitive to levaquin. She will be discharged on a course of this. She understands reasons to return. She was discharged in stable condition. Lab Data Labs: Laboratory Results - last 24 hr 03/23/21 03/23/21 03/23/21 01:03 01:03 01:10 WBC 12.6 H RBC 4.72 Hgb 14.1 Hct 42.5 MCV 90.0 MCH 29.9 MCHC 33.2 RDW Std Deviation 41.1 RDW Coeff of Claude 12.4 Plt Count 240 MPV 10.9 Immature Gran % (Auto) 1.100 H Neut % (Auto) 63.5 Lymph % (Auto) 24.5 [place] % (Auto) 8.3 Eos % (Auto) 1.9 Baso % (Auto) 0.7 Absolute Neuts (auto) 8.0 H Absolute Lymphs (auto) 3.08 Nucleated RBC % 0 Sodium 135 L Potassium 4.1 Chloride 102 Carbon Dioxide 24.0 Anion Gap 9 BUN 13 Creatinine 0.96 Estim Creat Clear Calc 62.23 Est GFR (MDRD) Af Amer 83 Est GFR (MDRD) Non-Af 68 BUN/Creatinine Ratio 13.5 Glucose 374 H Calcium 9.2 Urine Color Yellow Urine Clarity Clear Urine pH 6.0 Ur Specific [place] 1.015 Urine Protein 30 H Urine Glucose (UA) 1000 H Urine Ketones Negative Urine Occult Blood 50 H Urine Nitrite Positive H Urine Bilirubin Negative Urine Urobilinogen Normal Ur Leukocyte Esterase 500 H Urine RBC 0-5 SEEN Urine WBC 25-50 SEEN Ur Squamous Epith Cells 0 SEEN Urine Bacteria 3+ Urine Mucus 0 SEEN Radiography Diagnostic Testing: Clinical Impression(s) from Imaging Studies Abdomen/Pelvis CT 03/23/21 00:46 IMPRESSION: There is moderate cortical atrophy of the right kidney, consistent with chronic medical renal disease. There is 6mm nonobstructive stone lower pole of the right kidney. There is no hydronephrosis. Electronically Signed: Reymundo Cespedes MD at 2:12 EDT Tel , Service support , Discharge Plan Triage Chief Complaint: Complaint ED Provider: Jose Caputo Dx/Rx/DC Orders Clinical Impression: UTI (urinary tract infection), Acute flank pain, Chronic suprapubic catheter Instructions: ED CYSTITIS Female Adult Prescriptions: New levofloxacin 750 mg tablet 750 mg PO DAILY Qty: 7 RF: 0 No Action Lantus Solostar U-100 Insulin 100 unit/mL (3 mL) insulin pen 30 unit SC QHS RF: 0 Fiasp FlexTouch U-100 Insulin 100 unit/mL (3 mL) insulin pen subcut RF: 0 atorvastatin 80 mg tablet 20 mg PO DAILY RF: 0 lisinopril 5 mg tablet 5 mg PO DAILY Qty: 90 RF: 3 (DME) pen needle, diabetic [BD Ultra-Fine Hope Pen Needle] 32 gauge x 5/32 ne edle See Rx Instructions .ROUTE .MEDSUPPLY Qty: 400 RF: 6 furosemide 20 MG tablet 20 mg PO DAILY@1700 RF: 0 furosemide 40 MG tablet 40 mg PO BREAKFAST RF: 0 oxybutynin chloride 15 mg tablet extended release 24hr 15 mg PO DAILY RF: 0 propranolol 10 MG tablet 10 mg PO BID RF: 0 acetaminophen 500 MG tablet 1,000 mg PO TID PRN PRN (Reason: Pain Or Fever) RF: 0 phenazopyridine 200 MG tablet 200 mg PO BID PRN PRN (Reason: Pain) Qty: 10 RF: 0 trazodone 100 mg tablet 100 mg PO QHS RF: 0 Primary Care Provider: Will Shukla Referrals: Will Shukla MD [Primary Care Provider] - 3-5 Days Disposition Disposition: Home, Self Care
[2021-03-23 01:18] LABS: Color, Urine Yellow (Yellow); Glucose, Dipstick 1000 mg/dl (Normal); Ketone-Dipstick Negative (Negative); Leukocyte Esterase-Dipstick 500 /ul (Negative); Mucous, Urine 0 SEEN /hpf (<or=2+); Nitrite-Dipstick Positive (Negative); Occult Blood-Urine 50 /ul (Negative); Protein-Dipstick 30 mg/dl (Negative); Specific Gravity, Urine 1.015 (1.002-1.030); Squamous Epithelial Cells - UA 0 SEEN /hpf (5-10); Urine Bilirubin Dipstick Negative (Negative); Urine Clarity Clear (Clear); Urine Urobilinogen Normal (Normal)
[2021-03-23 01:26] LABS: Red Blood Cells-Urine 0-5 SEEN /hpf (0-5); White Blood Cells 25-50 SEEN /hpf (0-5)
[2021-03-23 01:27] LABS: Bacteria 3+ /hpf (None Seen)
[2021-03-23 01:28] LABS: Anion Gap 9 (5-15); BUN 13 mg/dL (7-18); BUN/Creat Ratio 13.5 RATIO (10-20); Calcium,Total 9.2 mg/dL (8.5-10.1); Chloride 102 mmol/L (98-107); Creatinine, Serum 0.96 mg/dL (0.55-1.02); EST Glomerular Filtration Rate 68 mL/min (>60); Est Glom Filt Rate - Afr Amer 83 mL/min (>60); Estimated Creatinine Clearance 62.23 ml/min; Glucose 374 mg/dL (74-106); Potassium 4.1 mmol/L (3.5-5.1); Sodium Level 135 mmol/L (136-145)
[2021-03-23] MEDS: Ceftriaxone 1 GM/50 ML BAG IV (01:50)
[2021-03-23] MEDS: HYDROcodone Bitartrate/Apap 5/325 Tablet PO (02:35)
[2021-03-23 02:42] VITALS: BP 112/56; PULSE 88; RESP 18; O2SAT 99
== END 2021-03-23 02:44 | disposition home or self-care (01) ==
PROVIDERS: Emergency Provider Emergency Medicine; PCP Family Medicine
DX: N39.0 Urinary tract infection, site not specified (principal); R10.9 Unspecified abdominal pain; Q05.9 Spina bifida, unspecified; E78.5 Hyperlipidemia, unspecified; I10 Essential (primary) hypertension; E11.9 Type 2 diabetes mellitus without complications; Z87.442 Personal history of urinary calculi; Z87.440 Personal history of urinary (tract) infections; Z79.4 Long term (current) use of insulin; Z79.899 Other long term (current) drug therapy
CPT/HCPCS: 74176; 80048; 81001; 85025; 87077; 87086; 87088; 87186; 96365; 96375; 99284; J7030; A4216; J2405

== ENCOUNTER 2021-04-03 22:10 | Emergency (ER) | payer MEDICARE, MEDICAID, SELFPAY ==
[2021-04-03 22:10] VITALS: BP 144/95; PULSE 89; RESP 16; TEMP 36.4; O2SAT 99; BMI 41.7
[2021-04-03 22:41] LABS: Bacteria 0 SEEN /hpf (None Seen); Mucous, Urine 0 SEEN /hpf (<or=2+)
--- NOTE | 2021-04-03 22:43 | CT_ITS ---
STUDY: CT ABDOMEN AND PELVIS WITH CONTRAST REASON FOR EXAM: Female, 40 years old patient with abdominal pain with rectal and/or urinary bleeding. Evaluate for rectal-vesical fistula. RADIATION DOSAGE (If Supplied By Facility): CTDIvol = ( 18.74 ) mGy, DLP = ( 1743.36 ) mGycm TECHNIQUE: Transaxial images were obtained from the dome of the diaphragm to the symphysis pubis without oral contrast. 75 ml of IV Isovue-370 was administered. Rectal contrast was administered. Sagittal and coronal images were reconstructed. Individualized dose optimization techniques were used for this CT. COMPARISON: CT abdomen and pelvis dated 03/23/2021. FINDINGS: The visualized lung bases are unremarkable. The visualized portions of the heart are within normal limits. There is decreased attenuation of the liver consistent with steatosis. There is mild hepatomegaly measuring up to 19.6 cm in greatest dimension. Normal gallbladder and extrahepatic biliary system. Normal spleen. Normal pancreas. Normal bilateral adrenal glands. There is moderate cortical atrophy of the right kidney, consistent with chronic medical renal disease. There is lumpy bumpy contour of the right renal parenchyma suggesting sequela of previous infection and/or ischemia. Normal left kidney. There is residual left-sided lobation. Normal visualized stomach. There is no obvious dilated bowel, ascites or pneumoperitoneum. Small bowel has a grossly normal appearance. Stool and/or enteric contrast is visible in the colon. There is non-visualization of the appendix. Normal abdominal aorta. Normal inferior vena cava. Normal retroperitoneum. Patient has a suprapubic catheter. Urinary bladder is initially nondistended. Delayed imaging was obtained of the urinary bladder after partial opacification of the urinary bladder. There is atrophy of the uterus. There is mesh material adjacent to the anterior abdominal wall consistent with ventral herniorrhaphy. There is an umbilical hernia containing fat. There is spina bifida at L5 and S1. There is a butterfly fragment at T8. CT/Abdomen/Pelvis WITH Contrast IMPRESSION: No CT evidence to suggest rectovesical fistula. Electronically Signed: Sandra Blunt MD at 0:50 EDT , Service support ,
--- NOTE | 2021-04-03 22:45 | EDS_ITS ---
HPI HPI - GI History of Present Illness Chief Complaint: Complaint Informant: patient Abdominal Pain/Flank Pain Onset: Today (past 1-2 hrs) Context: Sudden Onset Timing: Continuous Quality: Aching Location: - (Suprapubic into perineum) Current Severity: Severe Maximum Severity: Severe Worsened by: Nothing Relieved by: Nothing Nausea/Vomiting/Emesis GI Symptom: Negative for Nausea and Vomiting Diarrhea/Melena/Hematochezia GI Symptom: Positive for Hematochezia and - (Chronically constipated); Negative for Diarrhea and Melena Associated Symptoms Associated Symptoms: Positive for Hematuria; Negative for Dysuria, Frequency and Urgency Narrative Narrative: Patient has a history of spinal bifida, with chronic indwelling suprapubic catheter and chronic constipation since I was born. She oftentimes has to strain to have a bowel movement and manually assist getting stool out of her rectum. This evening, she was doing this and thinking maybe she strained too hard had sudden onset of pain followed by a relatively brief amount of blood through the Morales catheter, and 2 small clots, the bleeding stopped, the Morales continues to flow, and she continues to have severe pain. Patient states she has had lifelong issue with recurrent urinary infections and this does not feel like that, she has never had this pain before. [facility] Medical History Anxiety and depression Arthritis Cellulitis of left lower extremity Chronic back pain Chronic nausea Constipation Delayed wound healing Diabetes mellitus, type II Diabetic polyneuropathy Diabetic ulcer of left heel with fat layer exposed DJD (degenerative joint disease) of thoracic spine Dysthymic disorder Essential hypertension Hematochezia History of kidney stones History of migraine Hydronephrosis of right kidney Hyperglycemia Hyperlipidemia Infection of bladder catheter Insomnia Lipomeningocele Lower extremity edema Morbid obesity with BMI of 40.0-44.9, adult Neurogenic bladder Neurogenic bowel Non-compliance Non-smoker Normochromic normocytic anemia Panic attacks PSVT (paroxysmal supraventricular tachycardia) Sepsis Sepsis Spina bifida aperta of lumbar spine Thyroid cyst Type 2 diabetes mellitus with diabetic polyneuropathy Ulcer of left heel and midfoot with fat layer exposed Uninodular goiter Urinary tract infection UTI (urinary tract infection) UTI (urinary tract infection) Weakness Home Medications furosemide 20 mg PO DAILY@1700 08/28/18 [History Last Taken 12/22/20] furosemide 40 mg PO BREAKFAST 04/05/19 [History Last Taken 12/22/20] insulin glargine 100 unit/mL (3 mL) subcutaneous pen 30 unit SC QHS 11/01/19 [History Last Taken 12/21/20] oxybutynin chloride 15 mg tablet,extended release 24 hr 15 mg PO DAILY 11/12/19 [History Last Taken 12/22/20] propranolol 10 mg PO BID 01/13/20 [History Last Taken 12/22/20] acetaminophen 1,000 mg PO TID PRN PRN 02/12/20 [History Last Taken 09/24/20 19:24] phenazopyridine 200 mg PO BID PRN PRN #10 tab 07/13/20 [Rx Last Taken 12/19/20] trazodone 100 mg PO QHS 01/19/21 [History Last Taken Unknown] atorvastatin 80 mg tablet 20 mg PO DAILY tab 01/29/21 [History Last Taken Unknown] insulin aspart (niacinamide)(U-100) 100 unit/mL(3 mL) subcutaneous pen ml SUBCUT 01/29/21 [History Last Taken Unknown] lisinopril 5 mg tablet 5 mg PO DAILY #90 tab 01/29/21 [Rx Last Taken Unknown] pen needle, diabetic 32 gauge x #400 ea 03/05/21 [Rx Last Taken Unknown] levofloxacin 750 mg PO DAILY #7 tab 03/23/21 [Rx Last Taken Unknown] glimepiride 2 mg tablet 2 mg PO BID #180 tab 03/31/21 [Rx Last Taken Unknown] hydrocodone-acetaminophen 1 tab PO Q4H PRN PRN 2 Days #8 tablet 04/04/21 [Rx Last Taken Unknown] Allergy/AdvReac Type Severity Reaction Status Date / Time mushroom Allergy Anaphylaxis Verified 04/03/21 22:12 peanut Allergy Anaphylaxis Verified 04/03/21 22:12 Gadolinium-MRI Contrast AdvReac Vomiting Verified 04/03/21 22:12 Medium Latex, Natural Rubber AdvReac Rash Verified 04/03/21 22:12 Family History Mother CVA (cerebral vascular accident) Thyroid disorder Diabetes Hypertension Heart disease Hyperlipidemia Myocardial infarction, Onset Age: 54 mother had diabetes Father Cancer skin Grandmother Cancer liver Other Arthritis Skin cancer Surgical History history insertion suprapubic catheter History of cholecystectomy History of dilation and curettage History of spinal surgery Hx of foot surgery Hx of ventral hernia repair S/P thyroid biopsy (~11/06/19) Status post gastric surgery Social History household members: significant other Smoking Status: Never smoker alcohol intake: current substance use type: does not use ROS ROS ED Constitutional Constitutional ED: Denies chills or fever(s) Eyes Eyes: Denies change in vision or diplopia ENT ENT ED: Denies rhinorrhea or sore throat Cardiovascular Cardiovascular: Denies chest pain or palpitations Respiratory/Chest Respiratory/Chest: Denies cough or dyspnea Gastrointestinal Gastrointestinal: Reports as per HPI, abdominal pain, constipation and hematochezia; Denies diarrhea, nausea or vomiting Genitourinary Genitourinary ED: Reports as per HPI and hematuria; Denies dysuria Musculoskeletal Musculoskeletal: Denies back pain or neck pain Integumentary Denies abscess or rash Neurologic Neurologic: Denies headache(s), paresthesias or weakness Psychiatric Psychiatric: Denies anxiety or suicidal thoughts EXAM Physical Exam Const Vital Signs: 04/03/21 22:10 Temperature 97.6 F L Temperature Source Temporal Pulse Rate 89 Respiratory Rate 16 Blood Pressure 144/95 H Blood Pressure Mean 111 Pulse Ox 99 Oxygen Delivery Method Room Air Positive well nourished, well developed and obese Constitutional Narrative: No distress but uncomfortable General Appearance ED: well developed and NAD Nutritional Appearance: obese HEENT Reports moist mucous membranes normocephalic and atraumatic Eyes PERRL and EOMs intact bilaterally Neck full ROM and supple Resp normal respiratory effort and clear to auscultation bilaterally Cardio regular rate, regular rhythm and no murmurs GI non-distended GI Narrative: Severely tender distal suprapubic area, no other abdominal tenderness. Suprapubic catheter site is benign. On rectal exam, there is a scattered amount of blood in the perianal area without any active bleeding. On digital rectal, the patient is insensate here. She has a little tone. She has multiple hard balls of stool present in the rectum most of which I was able to manually did gallop, all of which had small amounts of blood on them again no active bleeding. There is no relief of pain after removing these. No melena. Auscultation: normoactive bowel sounds Palpation: soft no CVA tenderness Narrative: Suprapubic catheter shows nonbloody yellow urine actively flowing with a couple of small red blood clots nonobstructing within the catheter and bag. Suprapubic site benign without signs of infection or discharge around the catheter. Back/Spine no CVA tenderness General Back: other FROM Extremity normal to inspection General Extremety ED: Negative for edema, pulses abnormal or tenderness General Extremity: Negative for edema or pulses abnormal Neuro oriented x3, CN's II-XII intact bilaterally and no sensory deficits noted Sensorium / Orientation: awake and alert Skin no rashes or lesions noted and no wounds MDM MDM MDM Narrative Medical decision making narrative: Given history and exam I am concerned about a rectovesical fistula. Therefore, I ordered a CT of the abdomen and pelvis with IV and rectal contrast. Her pain was treated as well and labs were obtained as well as urine. CT is negative, the urine shows no signs of infection, and the rest of her blood work is unremarkable except for a slight elevation of her creatinine which is nonspecific and not necessarily related. At this point she does not have retention or continued hematuria, catheter is flowing, she is feeling a little better but still having some discomfort, and I feel she is safe to be discharged home with close outpatient follow-up, it is Monday night/Monday morning and she actually has an appointment with her urologist to have her catheter changed on Monday which is perfect. Given a short course of some analgesics. Lab Data Attestation: I reviewed the patient's lab results. Labs: Laboratory Results - last 24 hr 04/03/21 04/03/21 04/03/21 22:35 22:55 22:55 WBC 10.1 RBC 4.61 Hgb 13.7 Hct 41.6 MCV 90.2 MCH 29.7 MCHC 32.9 RDW Std Deviation 42.5 RDW Coeff of [place] 13.0 Plt Count 217 MPV 11.0 Immature Gran % (Auto) 0.800 Neut % (Auto) 60.9 Lymph % (Auto) 26.5 [place] % (Auto) 9.1 Eos % (Auto) 2.0 Baso % (Auto) 0.7 Absolute Neuts (auto) 6.1 Absolute Lymphs (auto) 2.67 Nucleated RBC % 0 Sodium 137 Potassium 4.0 Chloride 106 Carbon Dioxide 26.0 Anion Gap 5 BUN 15 Creatinine 1.28 H Estim Creat Clear Calc 46.67 Est GFR (MDRD) Af Amer 60 Est GFR (MDRD) Non-Af 49 L BUN/Creatinine Ratio 11.7 Glucose 284 H Calcium 8.9 Urine Color Yellow Urine Clarity Clear Urine pH 6.0 Ur Specific [place] 1.015 Urine Protein 100 H Urine Glucose (UA) 1000 H Urine Ketones Negative Urine Occult Blood 250 H Urine Nitrite Negative Urine Bilirubin Negative Urine Urobilinogen Normal Ur Leukocyte Esterase 25 H Urine RBC 10-25 SEEN Urine WBC 0-5 SEEN Ur Squamous Epith Cells 0-5 SEEN Urine Bacteria 0 SEEN Urine Mucus 0 SEEN Urine Test Negative Radiography Diagnostic Testing: Clinical Impression(s) from Imaging Studies Abdomen/Pelvis CT 04/03/21 22:43 IMPRESSION: No CT evidence to suggest rectovesical fistula. Electronically Signed: Sandra Blunt MD at 0:50 EDT , Service support , Discharge Plan Triage Chief Complaint: Complaint ED Provider: Harry Billings Dx/Rx/DC Orders Clinical Impression: Pelvic pain, Hematuria, Chronic constipation, Hematochezia Instructions: Abdominal Pain Prescriptions: New hydrocodone-acetaminophen [hydrocodone-acetaminophen] 1 TABLET tablet 1 tab PO Q4H PRN PRN (Reason: Pain) 2 Days Qty: 8 RF: 0 No Action Lantus Solostar U-100 Insulin 100 unit/mL (3 mL) insulin pen 30 unit SC QHS RF: 0 Fiasp FlexTouch U-100 Insulin 100 unit/mL (3 mL) insulin pen subcut RF: 0 atorvastatin 80 mg tablet 20 mg PO DAILY RF: 0 lisinopril 5 mg tablet 5 mg PO DAILY Qty: 90 RF: 3 (DME) pen needle, diabetic [BD Ultra-Fine Hope Pen Needle] 32 gauge x 5/32 needle See Rx Instructions .ROUTE .MEDSUPPLY Qty: 400 RF: 6 glimepiride 2 mg tablet 2 mg PO BID Qty: 180 RF: 3 furosemide 20 MG tablet 20 mg PO DAILY@1700 RF: 0 furosemide 40 MG tablet 40 mg PO BREAKFAST RF: 0 oxybutynin chloride 15 mg tablet extended release 24hr 15 mg PO DAILY RF: 0 propranolol 10 MG tablet 10 mg PO BID RF: 0 acetaminophen 500 MG tablet 1,000 mg PO TID PRN PRN (Reason: Pain Or Fever) RF: 0 phenazopyridine 200 MG tablet 200 mg PO BID PRN PRN (Reason: Pain) Qty: 10 RF: 0 trazodone 100 mg tablet 100 mg PO QHS RF: 0 levofloxacin 750 mg tablet 750 mg PO DAILY Qty: 7 RF: 0 Primary Care Provider: Will Shukla Referrals: urologist, your [Other] - Keep Mireya appointment Will Shukla MD [Primary Care Provider] - Disposition Disposition: Home, Self Care
[2021-04-03 22:50] LABS: Color, Urine Yellow (Yellow); Glucose, Dipstick 1000 mg/dl (Normal); Ketone-Dipstick Negative (Negative); Leukocyte Esterase-Dipstick 25 /ul (Negative); Nitrite-Dipstick Negative (Negative); Occult Blood-Urine 250 /ul (Negative); Protein-Dipstick 100 mg/dl (Negative); Specific Gravity, Urine 1.015 (1.002-1.030); Urine Bilirubin Dipstick Negative (Negative); Urine Clarity Clear (Clear); Urine Urobilinogen Normal (Normal)
[2021-04-03 22:58] LABS: Red Blood Cells-Urine 10-25 SEEN /hpf (0-5); Squamous Epithelial Cells - UA 0-5 SEEN /hpf (5-10); White Blood Cells 0-5 SEEN /hpf (0-5)
[2021-04-03 22:59] LABS: Internal QC Validated? YES +Cl - CLEAR BKGD; Pregnancy, Urine Negative Negative
[2021-04-03 23:10] LABS: Absolute Lymphocyte Count 2.67 X10^3/uL (0.83-4.51); Absolute Neutrophil Count 6.1 X10^3/uL (2.0-7.7); Basophil# 0.07 X10^3/uL; Basophil% 0.7 % (0-1); Hematocrit 41.6 % (37-47); Hemoglobin 13.7 g/dL (12.0-15.0); Lymphocyte # 2.67 X10^3/ul (0.83-4.51); Lymphocyte % 26.5 % (19-41); Mean Corp Hgb Conc 32.9 g/dL (32-36); Mean Corpuscular Hgb 29.7 pg (27.0-32.0); Mean Corpuscular Volume 90.2 fL (81-99); Monocyte# 0.92 X10^3/uL; Monocyte% 9.1 % (0-10); NRBC Flagged by Analyzer 0 % (0-5); Neutrophil # 6.13 X10^3/uL (2.7-7.7); Neutrophil % 60.9 % (47-70); Platelet Count 217 K/mm3 (150-450); RBC Distribution Width SD 42.5 fl (35.1-43.9); Red Blood Count 4.61 M/mm3 (4.2-5.4); White Blood Count 10.1 K/mm3 (4.4-11.0)
[2021-04-03] MEDS: Ondansetron 4 MG/2 ML Vial IV (23:21)
[2021-04-03] MEDS: Morphine 4 MG/ML Syringe IV (23:21)
[2021-04-03 23:29] LABS: Anion Gap 5 (5-15); BUN 15 mg/dL (7-18); BUN/Creat Ratio 11.7 RATIO (10-20); Calcium,Total 8.9 mg/dL (8.5-10.1); Chloride 106 mmol/L (98-107); Creatinine, Serum 1.28 mg/dL (0.55-1.02); EST Glomerular Filtration Rate 49 mL/min (>60); Est Glom Filt Rate - Afr Amer 60 mL/min (>60); Estimated Creatinine Clearance 46.67 ml/min; Glucose 284 mg/dL (74-106); Sodium Level 137 mmol/L (136-145)
[2021-04-04 01:40] VITALS: BP 121/78; PULSE 81; RESP 16; O2SAT 99
[2021-04-04] MEDS: HYDROcodone Bitartrate/Apap 5/325 Tablet PO (01:40)
== END 2021-04-04 01:41 | disposition home or self-care (01) ==
PROVIDERS: Emergency Provider Emergency Medicine; PCP Family Medicine
DX: R10.9 Unspecified abdominal pain (principal); R10.2 Pelvic and perineal pain; K92.1 Melena; R31.9 Hematuria, unspecified; K59.09 Other constipation; E66.9 Obesity, unspecified; D64.9 Anemia, unspecified; E78.5 Hyperlipidemia, unspecified; F32.A Depression, unspecified; F41.9 Anxiety disorder, unspecified; G47.00 Insomnia, unspecified; G89.29 Other chronic pain; I10 Essential (primary) hypertension; K59.2 Neurogenic bowel, not elsewhere classified; Z79.4 Long term (current) use of insulin; Z87.442 Personal history of urinary calculi; Z91.19 Patient's noncompliance with other medical treatment and regimen; E66.01 Morbid (severe) obesity due to excess calories; Z68.41 Body mass index [BMI] 40.0-44.9, adult
CPT/HCPCS: 74177; 80048; 81001; 81025; 85025; 96374; 96375; 99284; Q9967; A4216; J2405

== ENCOUNTER 2021-04-08 12:58 | Emergency (ER) | payer MEDICARE, MEDICAID, SELFPAY ==
[2021-04-08 12:59] VITALS: BP 132/109; PULSE 76; RESP 16; TEMP 35.9; O2SAT 98; BMI 41.7
--- NOTE | 2021-04-08 13:01 | RAD_ITS ---
STUDY: X-RAY - LEFT FOOT CLINICAL: Female, 40 years old. Pain after fall TECHNIQUE: 4 view(s) of the foot. COMPARISON: 06/29/2020 FINDINGS: Normal talus and tarsal bones. Prominent calcaneal spurs Arthrosis of the visualized subtalar, talonavicular, calcaneocuboid, tarsal and tarsometatarsal articulations. There is been resection of the distal half of the fifth metatarsal, and the distal phalanx of the great toe. Normal metatarsophalangeal joint of the great toe. Normal tibial and fibular sesamoid bones. Normal interphalangeal joint of the great toe. Normal phalanges of the great toe. Normal second through fifth metatarsophalangeal joints. Normal interphalangeal joints and phalanges of the lesser toes. The soft tissue structures are unremarkable. RAD/Foot min 3 Views IMPRESSION: Previous resection of the distal half of the fifth metatarsal and the distal phalanx of the great toe. Stable arthrosis Calcaneal spurs No demonstrated fracture, or suspicious erosive lesion. Electronically Signed: Jarod Jaimes MD at 13:35 EST , Service support ,
--- NOTE | 2021-04-08 13:01 | RAD_ITS ---
STUDY: X-RAY - LEFT ANKLE REASON FOR EXAM: Female, 40 years old. FALL TECHNIQUE: 5 view(s) of the ankle. COMPARISON: None. FINDINGS: Normal visualized distal tibia and fibula. Normal medial and lateral malleoli. Normal tibiotalar articulation and ankle mortise. Normal visualized talus. Calcaneal spurs The visualized subtalar, talonavicular, calcaneocuboid and tarsal articulations are normal. The soft tissue structures are unremarkable. RAD/Ankle min 3 Views IMPRESSION: Calcaneal spurs, otherwise unremarkable left ankle Electronically Signed: Jarod Jaimes MD at 13:35 EST , Service support ,
--- NOTE | 2021-04-08 14:34 | EDS_ITS ---
HPI History of Present Illness Chief Complaint: Lower Extremity Injury Detail of Chief Complaint: Injury to left foot and ankle Informant: patient Narrative Narrative: Patient presents to the emergency department complaint of injury to her left foot and ankle this morning. Patient states that she was walking into the kitchen when her foot went numb and her ankle inverted and her toes got bent backwards. Patient was having hard time bearing weight afterwards. Patient states that in June of this year she broke a few bones in her same foot and broke a bone in her ankle. Patient denies any other injuries. She does have history of spina bifida and related neurogenic bladder and bowel. Patient has history of neuropathy. Patient has had history of osteomyelitis to the left foot that required bone resection. [facility] Medical History Anxiety and depression Arthritis Cellulitis of left lower extremity Chronic back pain Chronic nausea Constipation Delayed wound healing Diabetes mellitus, type II Diabetic polyneuropathy Diabetic ulcer of left heel with fat layer exposed DJD (degenerative joint disease) of thoracic spine Dysthymic disorder Essential hypertension Hematochezia History of kidney stones History of migraine Hydronephrosis of right kidney Hyperglycemia Hyperlipidemia Infection of bladder catheter Insomnia Lipomeningocele Lower extremity edema Morbid obesity with BMI of 40.0-44.9, adult Neurogenic bladder Neurogenic bowel Non-compliance Non-smoker Normochromic normocytic anemia Panic attacks PSVT (paroxysmal supraventricular tachycardia) Sepsis Sepsis Spina bifida aperta of lumbar spine Thyroid cyst Type 2 diabetes mellitus with diabetic polyneuropathy Ulcer of left heel and midfoot with fat layer exposed Uninodular goiter Urinary tract infection UTI (urinary tract infection) UTI (urinary tract infection) Weakness Home Medications furosemide 20 mg PO DAILY@1700 08/28/18 [History Last Taken 12/22/20] furosemide 40 mg PO BREAKFAST 04/05/19 [History Last Taken 12/22/20] insulin glargine 100 unit/mL (3 mL) subcutaneous pen 30 unit SC QHS 11/01/19 [History Last Taken 12/21/20] oxybutynin chloride 15 mg tablet,extended release 24 hr 15 mg PO DAILY 11/12/19 [History Last Taken 12/22/20] propranolol 10 mg PO BID 01/13/20 [History Last Taken 12/22/20] acetaminophen 1,000 mg PO TID PRN PRN 02/12/20 [History Last Taken 09/24/20 19:24] phenazopyridine 200 mg PO BID PRN PRN #10 tab 07/13/20 [Rx Last Taken 12/19/20] trazodone 100 mg PO QHS 01/19/21 [History Last Taken Unknown] atorvastatin 80 mg tablet 20 mg PO DAILY tab 01/29/21 [History Last Taken Unknown] insulin aspart (niacinamide)(U-100) 100 unit/mL(3 mL) subcutaneous pen ml SUBCUT 01/29/21 [History Last Taken Unknown] lisinopril 5 mg tablet 5 mg PO DAILY #90 tab 01/29/21 [Rx Last Taken Unknown] pen needle, diabetic 32 gauge x #400 ea 03/05/21 [Rx Last Taken Unknown] levofloxacin 750 mg PO DAILY #7 tab 03/23/21 [Rx Last Taken Unknown] glimepiride 2 mg tablet 2 mg PO BID #180 tab 03/31/21 [Rx Last Taken Unknown] hydrocodone-acetaminophen 1 tab PO Q4H PRN PRN 2 Days #8 tablet 04/04/21 [Rx Last Taken Unknown] Allergy/AdvReac Type Severity Reaction Status Date / Time mushroom Allergy Anaphylaxis Verified 04/08/21 13:00 peanut Allergy Anaphylaxis Verified 04/08/21 13:00 Gadolinium-MRI Contrast AdvReac Vomiting Verified 04/08/21 13:00 Medium Latex, Natural Rubber AdvReac Rash Verified 04/08/21 13:00 Family History Mother CVA (cerebral vascular accident) Thyroid disorder Diabetes Hypertension Heart disease Hyperlipidemia Myocardial infarction, Onset Age: 54 mother had diabetes Father Cancer skin Grandmother Cancer liver Other Arthritis Skin cancer Surgical History history insertion suprapubic catheter History of cholecystectomy History of dilation and curettage History of spinal surgery Hx of foot surgery Hx of ventral hernia repair S/P thyroid biopsy (~11/06/19) Status post gastric surgery Social History household members: significant other Smoking Status: Never smoker alcohol intake: current substance use type: does not use ROS ROS ED Constitutional Constitutional ED: Reports systems reviewed and no addt'l complaints, except as documented; Denies body ache(s), change in weight or chills Eyes Eyes: Denies acute decrease in peripheral vision, change in vision, double vision or loss of vision ENT ENT ED: Reports none; Denies ear pain, lip swelling, loss taste/smell, neck pain, otalgia or sore throat Cardiovascular Cardiovascular: Reports none; Denies abdominal pain, chest pain with activity, leg edema, lightheadedness, palpitations, rapid heart rate or syncope Respiratory/Chest Respiratory/Chest: Reports none; Denies change in mental status, dry cough, dyspnea, hemoptysis, shortness of breath at rest or shortness of breath with exertion Gastrointestinal Gastrointestinal: Reports none; Denies abdominal pain, change in stool character, diarrhea, hematemesis, hematochezia, melena, rectal bleeding or vomiting Genitourinary Genitourinary ED: Reports none; Denies abdominal discomfort, anuria, dysuria, genital pain or polyuria Musculoskeletal Musculoskeletal: Reports none and other Details: Left foot and ankle pain/injury ; Denies arthralgias, back pain, difficulty walking, extremity pain, muscle weakness or myalgias Integumentary Reports none; Denies abscess or rash Neurologic Neurologic: Reports none; Denies abnormal gait, confusion, focal weakness, frequent falls, headache(s), loss of vision, numbness, paresthesias, radicular pain, vertigo or weakness Psychiatric Psychiatric: Reports systems reviewed and no addt'l complaints, except as documented and none; Denies behavioral changes, confusion, difficulty concentrating, hallucinations, suicidal ideation, tactile hallucinations or visual hallucinations Endocrine Endocrinology: Denies none, cold intolerance, excessive sweating, fatigue or heat intolerance Hematologic/Lymphatic Hematologic/Lymphatic: Reports none; Denies anemia, easy bleeding or easy bruising Allergic/Immunologic Allergic/Immunologic ED: Denies as per HPI, none, lip swelling, mouth swelling, throat swelling, tongue swelling or hives EXAM Physical Exam Const Vital Signs: 04/08/21 12:59 Temperature 96.7 F L Temperature Source Temporal Pulse Rate 76 Respiratory Rate 16 Blood Pressure 132/109 H Blood Pressure Mean 116 Pulse Ox 98 Oxygen Delivery Method Room Air Positive well nourished and well developed General Appearance ED: well developed and NAD HEENT Reports TM's clear and moist mucous membranes normocephalic and atraumatic; Negative for trauma or tenderness Tympanic Membrane ED: Yes TM's clear Eyes PERRL and EOMs intact bilaterally General Eye ED: Negative for pale conjunctiva or scleral icterus Neck no lymphadenopathy, supple and no JVD General: Negative for tenderness Chest Wall inspection of chest normal and palpation of chest normal Chest: Negative for tenderness Resp normal respiratory effort and clear to auscultation bilaterally Effort and Inspection: Negative for respiratory distress or pain with movement Auscultation: Negative for rhonchi, wheezes or diminished lung sounds Cardio regular rate, regular rhythm, S1 normal heart sound, S2 normal heart sound and no murmurs Peripheral Pulses: pulses 2+ throughout GI normal to inspection, nondistended, normoactive bowel sounds, soft to palpation, non-tender, non-distended and no masses Back/Spine no CVA tenderness and no thoracic nor lumbar tenderness Extremity Extremity Narrative: Evaluation of the left foot and ankle reveals no obvious deformity. I do not appreciate any ecchymosis or bruising. There is no significant soft tissue swelling noted. She has diffuse tenderness over the lateral malleolus as well as the midfoot on palpation. She is neurovascular intact. No significant tenderness at the knee noted. No pain at the proximal fibular head. General Extremety ED: Negative for edema General Extremity: Negative for edema Neuro oriented x3, CN's II-XII intact bilaterally, no sensory deficits noted and gait normal Sensorium / Orientation: awake, alert, oriented to person, oriented to place and oriented to time Motor Exam: strength 5/5 throughout and strength abnormal Psych mental status grossly normal Skin no rashes or lesions noted and no wounds MDM MDM MDM Narrative Medical decision making narrative: X-rays of the left foot and ankle read by radiology as no acute fractures or dislocations. I was in agreement. Patient was given an air splint. She does not want crutches as she does have a wheelchair as needed for home. 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 Patient to use ibuprofen or Tylenol for discomfort. Radiography Diagnostic Testing: Clinical Impression(s) from Imaging Studies Ankle X-Ray 04/08/21 13:01 IMPRESSION: Calcaneal spurs, otherwise unremarkable left ankle Electronically Signed: Jarod Jaimes MD at 13:35 EST , Service support , Foot X-Ray 04/08/21 13:01 IMPRESSION: Previous resection of the distal half of the fifth metatarsal and the distal phalanx of the great toe. Stable arthrosis Calcaneal spurs No demonstrated fracture, or suspicious erosive lesion. Electronically Signed: Jarod Jaimes MD at 13:35 EST , Service support , Three-view x-rays of the left ankle obtained interpreted by myself as no acute fractures. Radiology in agreement. Three-view x-rays of left foot obtained interpreted by myself as no acute fractures or dislocations. Radiology also in agreement. Discharge Plan Triage Chief Complaint: Lower Extremity Injury ED Provider: Irvin Goldberg Dx/Rx/DC Orders Clinical Impression: Sprain and strain of left ankle, Sprain of foot, left Instructions: ED Foot Sprain, ED Ankle Sprain (Adult) Prescriptions: No Action Lantus Solostar U-100 Insulin 100 unit/mL (3 mL) insulin pen 30 unit SC QHS RF: 0 Fiasp FlexTouch U-100 Insulin 100 unit/mL (3 mL) insulin pen subcut RF: 0 atorvastatin 80 mg tablet 20 mg PO DAILY RF: 0 lisinopril 5 mg tablet 5 mg PO DAILY Qty: 90 RF: 3 (DME) pen needle, diabetic [BD Ultra-Fine Hope Pen Needle] 32 gauge x 5/32 needle See Rx Instructions .ROUTE .MEDSUPPLY Qty: 400 RF: 6 glimepiride 2 mg tablet 2 mg PO BID Qty: 180 RF: 3 furosemide 20 MG tablet 20 mg PO DAILY@1700 RF: 0 furosemide 40 MG tablet 40 mg PO BREAKFAST RF: 0 oxybutynin chloride 15 mg tablet extended release 24hr 15 mg PO DAILY RF: 0 propranolol 10 MG tablet 10 mg PO BID RF: 0 acetaminophen 500 MG tablet 1,000 mg PO TID PRN PRN (Reason: Pain Or Fever) RF: 0 phenazopyridine 200 MG tablet 200 mg PO BID PRN PRN (Reason: Pain) Qty: 10 RF: 0 trazodone 100 mg tablet 100 mg PO QHS RF: 0 levofloxacin 750 mg tablet 750 mg PO DAILY Qty: 7 RF: 0 hydrocodone-acetaminophen [hydrocodone-acetaminophen] 1 TABLET tablet 1 tab PO Q4H PRN PRN (Reason: Pain) 2 Days Qty: 8 RF: 0 Primary Care Provider: Will Shukla Referrals: Will Shukla MD [Primary Care Provider] - 5-7 Days Disposition Disposition: Home, Self Care
== END 2021-04-08 14:48 | disposition home or self-care (01) ==
PROVIDERS: Emergency Provider Emergency Medicine; PCP Family Medicine
DX: S93.602A Unspecified sprain of left foot, initial encounter (principal); S96.912A Strain of unspecified muscle and tendon at ankle and foot level, left foot, initial encounter; Y93.01 Activity, walking, marching and hiking; W50.2XXA Accidental twist by another person, initial encounter; Y92.9 Unspecified place or not applicable; Y99.9 Unspecified external cause status; D64.9 Anemia, unspecified; E78.5 Hyperlipidemia, unspecified; F32.A Depression, unspecified; F41.9 Anxiety disorder, unspecified; G47.00 Insomnia, unspecified; G89.29 Other chronic pain; I10 Essential (primary) hypertension; Q05.9 Spina bifida, unspecified; Z79.4 Long term (current) use of insulin; Z87.442 Personal history of urinary calculi; Z91.19 Patient's noncompliance with other medical treatment and regimen
CPT/HCPCS: 73610; 73630; 99283

== ENCOUNTER 2021-04-21 21:12 | Emergency (ER) | payer MEDICARE, MEDICAID, SELFPAY ==
[2021-04-21 21:12] VITALS: BP 146/85; PULSE 86; RESP 12; TEMP 36.4; O2SAT 98; BMI 90.7
--- NOTE | 2021-04-21 21:37 | EX.ED.VIS.HA ---
HPI History of Present Illness Chief Complaint: Headache Informant: patient Onset/Context/Timing Onset: Today Timing: Continuous Quality -Headache: Positive for Similar Prior Headaches and Sharp Current Severity: Moderate Maximum Severity: Moderate Associated Symptoms/Injury Associated Symptoms: Positive for Nausea and Photophobia; Negative for Fever, Vomiting, Sore Throat, Sinus Pressure, Numbness, Tingling, Preceding Aura, Visual Changes, Blurred Vision and Visual Loss Injury - CUETO: Negative for Direct Trauma, Fall and Assault Narrative Narrative: 40-year-old female history of migraine headaches, spina bifida, insulin-dependent diabetes, neurogenic bladder and suprapubic catheter. States that she woke this morning around 3 AM with a headache on the left side. She states is progressively worsened. Denies any falls or trauma. She has had prior imaging of her brain both CAT scans and MRIs with no history of any type of aneurysm or intracranial bleed nor family history. She also states she has had some intermittent nosebleeds throughout the day. The last one was about an hour ago lasted about 10 minutes. She denies any nasal trauma. She has had recently a runny nose. Prior similar symptoms: Yes Recent Illness/Hospitalization: No [facility] Medical History Anxiety and depression Arthritis Cellulitis of left lower extremity Chronic back pain Chronic nausea Constipation Delayed wound healing Diabetes mellitus, type II Diabetic polyneuropathy Diabetic ulcer of left heel with fat layer exposed DJD (degenerative joint disease) of thoracic spine Dysthymic disorder Essential hypertension Hematochezia History of kidney stones History of migraine Hydronephrosis of right kidney Hyperglycemia Hyperlipidemia Infection of bladder catheter Insomnia Lipomeningocele Lower extremity edema Morbid obesity with BMI of 40.0-44.9, adult Neurogenic bladder Neurogenic bowel Non-compliance Non-smoker Normochromic normocytic anemia Panic attacks PSVT (paroxysmal supraventricular tachycardia) Sepsis Sepsis Spina bifida aperta of lumbar spine Thyroid cyst Type 2 diabetes mellitus with diabetic polyneuropathy Ulcer of left heel and midfoot with fat layer exposed Uninodular goiter Urinary tract infection UTI (urinary tract infection) UTI (urinary tract infection) Weakness Home Medications furosemide 20 mg PO DAILY@1700 08/28/18 [History Last Taken 12/22/20] furosemide 40 mg PO BREAKFAST 04/05/19 [History Last Taken 12/22/20] insulin glargine 100 unit/mL (3 mL) subcutaneous pen 30 unit SC QHS 11/01/19 [History Last Taken 12/21/20] oxybutynin chloride 15 mg tablet,extended release 24 hr 15 mg PO DAILY 11/12/19 [History Last Taken 12/22/20] propranolol 10 mg PO BID 01/13/20 [History Last Taken 12/22/20] acetaminophen 1,000 mg PO TID PRN PRN 02/12/20 [History Last Taken 09/24/20 19:24] phenazopyridine 200 mg PO BID PRN PRN #10 tab 07/13/20 [Rx Last Taken 12/19/20] trazodone 100 mg PO QHS 01/19/21 [History Last Taken Unknown] atorvastatin 80 mg tablet 20 mg PO DAILY tab 01/29/21 [History Last Taken Unknown] insulin aspart (niacinamide)(U-100) 100 unit/mL(3 mL) subcutaneous pen 0 - 100 ml SUBCUT PRN PRN 01/29/21 [History Last Taken Unknown] lisinopril 5 mg tablet 5 mg PO DAILY #90 tab 01/29/21 [Rx Last Taken Unknown] pen needle, diabetic 32 gauge x 32 #400 ea 03/05/21 [Rx Last Taken Unknown] levofloxacin 750 mg PO DAILY #7 tab 03/23/21 [Rx Last Taken Unknown] glimepiride 2 mg tablet 2 mg PO BID #180 tab 03/31/21 [Rx Last Taken Unknown] hydrocodone-acetaminophen 1 tab PO Q4H PRN PRN 2 Days #8 tablet 04/04/21 [Rx Last Taken Unknown] Allergy/AdvReac Type Severity Reaction Status Date / Time mushroom Allergy Anaphylaxis Verified 04/21/21 21:14 peanut Allergy Anaphylaxis Verified 04/21/21 21:14 Gadolinium-MRI Contrast AdvReac Vomiting Verified 04/21/21 21:14 Medium Latex, Natural Rubber AdvReac Rash Verified 04/21/21 21:14 Family History Mother CVA (cerebral vascular accident) Thyroid disorder Diabetes Hypertension Heart disease Hyperlipidemia Myocardial infarction, Onset Age: 54 mother had diabetes Father Cancer skin Grandmother Cancer liver Other Arthritis Skin cancer Surgical History history insertion suprapubic catheter History of cholecystectomy History of dilation and curettage History of spinal surgery Hx of foot surgery Hx of ventral hernia repair S/P thyroid biopsy (~11/06/19) Status post gastric surgery Social History household members: significant other Smoking Status: Never smoker alcohol intake: current substance use type: does not use ROS ROS ED ROS Narrative Denies recent illness. Review of Systems ROS Unobtainable: Denies due to encephalopathy Constitutional Constitutional ED: Denies fever(s) Eyes Eyes: Denies change in vision ENT ENT ED: Denies ear pain or sore throat Cardiovascular Cardiovascular: Denies chest pain Respiratory/Chest Respiratory/Chest: Denies cough or dyspnea Gastrointestinal Gastrointestinal: Denies abdominal pain, diarrhea, nausea or vomiting Genitourinary Genitourinary ED: Denies dysuria Musculoskeletal Musculoskeletal: Denies myalgias Integumentary Denies rash Neurologic Neurologic: Reports headache(s) Psychiatric Psychiatric: Denies depression Hematologic/Lymphatic Hematologic/Lymphatic: Denies easy bruising Allergic/Immunologic Allergic/Immunologic ED: Denies urticaria EXAM Physical Exam Narrative Exam Narrative: 40-year-old female sent in darkened room with significant other bedside. Vital signs stable afebrile does not look septic toxic no distress. HEENT exam atraumatic. Pupils round reactive light no facial droop. Normal speech. No sinus tenderness. Both nasal passageway there is no active bleeding or blood. Posterior pharynx normal. Neck nontender. No lymphadenopathy. No meningismus. Able to touch chin to chest. Lungs clear to auscultation bilaterally. Heart regular rhythm no murmur. Chest were nontender. Abdomen soft nontender. Moving all 4 extremities. Dorsi plantarflexion intact. 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 Back nontender. She does have a suprapubic catheter in her lower abdomen. Neurologically she is awake. Alert. Moving all 4 extremities. No focal motor deficits. NIH score of 0. She does have photophobia to lights. Const Vital Signs: 04/21/21 21:12 Temperature 97.5 F L Temperature Source Temporal Pulse Rate 86 Respiratory Rate 12 Blood Pressure 146/85 H Blood Pressure Mean 105 Pulse Ox 98 Oxygen Delivery Method Room Air Positive well nourished, well developed and obese; Negative for cachectic, contractures or unkempt General Appearance ED: well developed and NAD; Negative for unkempt, cachectic, contractures, cyanotic or diaphoretic Nutritional Appearance: obese; Negative for cachectic HEENT Reports normocephalic and moist mucous membranes atraumatic; Negative for trauma, tenderness, temporal artery tenderness or vesicular rash Face and Sinus: Negative for sinus tenderness Eyes PERRL and EOMs intact bilaterally General Eye ED: Negative for pale conjunctiva or scleral icterus Neck no lymphadenopathy, supple, no meningeal signs and no JVD General: Negative for tenderness Resp normal respiratory effort and clear to auscultation bilaterally Auscultation: Negative for rales, rhonchi or wheezes Cardio regular rate, regular rhythm, S1 normal heart sound, S2 normal heart sound and no murmurs GI non-tender and non-distended Auscultation: normoactive bowel sounds Palpation: soft; Negative for firm, tender, guarding or rigid Back/Spine no CVA tenderness General Back: Negative for CVA tenderness or tenderness Cervical Spine: Negative for cervical spine tenderness Thoracic Spine / Upper Back: Negative for thoracic spinal tenderness Extremity normal to inspection and full ROM General Extremety ED: Negative for edema or tenderness General Extremity: Negative for edema Neuro oriented x3 and CN's II-XII intact bilaterally Sensorium / Orientation: awake, alert, oriented to person, oriented to place and oriented to time; Negative for orientation impaired, lethargic or stuporous Coordination / Balance: [id number] test normal Motor Exam: strength 5/5 throughout Psych Appearance: Negative for unkempt Skin Lesions: no lesions Rashes: no rashes MDM MDM MDM Narrative Medical decision making narrative: 40-year-old diabetic female with a headache with a history of migraine headaches. She has had imaging in the past including MRIs of her brain. There is no history of aneurysm. She will be treated with IV fluids, Benadryl, Toradol and Compazine. She will be reassessed. She has had recent lab work her CBC showed normal hemoglobin and platelets. I do not think she needs any further lab work at this time or imaging. Currently she has no signs of blood in her nose or active bleeding. I do not think needs packed. Repeat exam patient is doing well at 10:25 PM. Headache is resolving. Neurologic exam remains normal. She and I discussed nasal packing which she has no active bleeding at this time. I do not think she needs it and she deferred. Lab Data Attestation: I reviewed the patient's lab results. Lab results narrative: I reviewed her most recent lab results and prior imaging of her brain. Discharge Plan Triage Chief Complaint: Headache ED Provider: Kevin Barcenas Dx/Rx/DC Orders Clinical Impression: Headache, migraine, Anterior epistaxis, History of diabetes mellitus Instructions: ED Epistaxis (Adult), ED, Migraine (Classical) Prescriptions: No Action Lantus Solostar U-100 Insulin 100 unit/mL (3 mL) insulin pen 30 unit SC QHS RF: 0 Fiasp FlexTouch U-100 Insulin 100 unit/mL (3 mL) insulin pen 0 - 100 ml subcut PRN PRN (Reason: Hyperglycemia) RF: 0 atorvastatin 80 mg tablet 20 mg PO DAILY RF: 0 lisinopril 5 mg tablet 5 mg PO DAILY Qty: 90 RF: 3 (DME) pen needle, diabetic [BD Ultra-Fine Hope Pen Needle] 32 gauge x 5/32 needle See Rx Instructions .ROUTE .MEDSUPPLY Qty: 400 RF: 6 glimepiride 2 mg tablet 2 mg PO BID Qty: 180 RF: 3 furosemide 20 MG tablet 20 mg PO DAILY@1700 RF: 0 furosemide 40 MG tablet 40 mg PO BREAKFAST RF: 0 oxybutynin chloride 15 mg tablet extended release 24hr 15 mg PO DAILY RF: 0 propranolol 10 MG tablet 10 mg PO BID RF: 0 acetaminophen 500 MG tablet 1,000 mg PO TID PRN PRN (Reason: Pain Or Fever) RF: 0 phenazopyridine 200 MG tablet 200 mg PO BID PRN PRN (Reason: Pain) Qty: 10 RF: 0 trazodone 100 mg tablet 100 mg PO QHS RF: 0 levofloxacin 750 mg tablet 750 mg PO DAILY Qty: 7 RF: 0 hydrocodone-acetaminophen [hydrocodone-acetaminophen] 1 TABLET tablet 1 tab PO Q4H PRN PRN (Reason: Pain) 2 Days Qty: 8 RF: 0 Primary Care Provider: Will Shukla Referrals: Will Shukla MD [Primary Care Provider] - 3-5 Days if not improving Activity Restrictions/Additional Instructions: Plenty of fluids and rest. Watch your blood sugars closely. Tylenol and Motrin for pain If you have recurrent nosebleeds using Afrin or Burak-Synephrine nasal spray which will help him stop. Pinch your nose for 20 minutes to help stop the bleeding. If rebleeds and unable to control return to have it packed. Disposition Disposition: Home, Self Care
[2021-04-21] MEDS: DiphenhydrAMINE 50 MG/ML Syringe IV (21:48)
[2021-04-21] MEDS: proCHLORPERazine 10 MG/2 ML Vial IV (21:48)
[2021-04-21] MEDS: Ketorolac 30 MG/ML Syringe IV (21:48)
[2021-04-21] MEDS: 0.9% Normal Saline 1,000 ML 1000 ML IV (21:48)
== END 2021-04-21 22:35 | disposition home or self-care (01) ==
PROVIDERS: Emergency Provider Emergency Medicine; PCP Family Medicine
DX: G43.909 Migraine, unspecified, not intractable, without status migrainosus (principal); R04.0 Epistaxis; E11.9 Type 2 diabetes mellitus without complications; E66.9 Obesity, unspecified; Q05.9 Spina bifida, unspecified; Z79.4 Long term (current) use of insulin; N31.9 Neuromuscular dysfunction of bladder, unspecified; E78.5 Hyperlipidemia, unspecified; D64.9 Anemia, unspecified; F32.A Depression, unspecified; F41.9 Anxiety disorder, unspecified; G47.00 Insomnia, unspecified; I10 Essential (primary) hypertension; Z68.41 Body mass index [BMI] 40.0-44.9, adult; Z87.442 Personal history of urinary calculi; Z91.19 Patient's noncompliance with other medical treatment and regimen; E66.01 Morbid (severe) obesity due to excess calories; G89.29 Other chronic pain; K59.2 Neurogenic bowel, not elsewhere classified
CPT/HCPCS: 96361; 96374; 96375; 99283; J7030; A4216

== ENCOUNTER 2021-05-05 14:22 | Emergency (ER) | payer MEDICARE, MEDICAID, SELFPAY ==
[2021-05-05 14:23] VITALS: BP 116/72; PULSE 92; RESP 16; TEMP 36.6; O2SAT 97; BMI 41.1
--- NOTE | 2021-05-05 15:09 | RAD_ITS ---
EXAM: XR ABDOMEN, 2 VIEWS AND XR CHEST, 1 VIEW CLINICAL INDICATION: Pain TECHNIQUE: Frontal view of the chest, frontal view of the abdomen/pelvis and upright or decubitus view of the abdomen. This report was created using [employer] report [employer] technology. COMPARISON: None. FINDINGS: CHEST: LUNGS AND PLEURAL SPACES: Unremarkable. No consolidation or edema. No pneumothorax. No effusion. HEART: Unremarkable. Cardiac silhouette not enlarged. MEDIASTINUM: Central airways and mediastinal contour are unremarkable. ABDOMEN: INTRAPERITONEAL SPACE: No free air. GASTROINTESTINAL TRACT: Stool throughout the colon. Non-obstructive. No bowel or stomach distention. ORGANS: Unremarkable as visualized. No organomegaly. No abnormal calcifications. TUBES, LINES AND DEVICES: None. BONES/JOINTS: No acute findings. SOFT TISSUES: No acute findings. RAD/Acute Abdomen Inc Chest IMPRESSION: Stool throughout the colon. Electronically Signed: Scott Castillo MD at 16:14 EST , Service support ,
--- NOTE | 2021-05-05 15:10 | EDS_ITS ---
HPI HPI - GI History of Present Illness Chief Complaint: Abd Pain Detail of Chief Complaint: Abdominal pain Informant: patient Abdominal Pain/Flank Pain Onset: Yesterday (Pain started at 2200 last evening.) Context: Sudden Onset Timing: Continuous and Waxes and wanes Quality: Aching and Cramping Location: - (Initially upper abdomen now diffuse) Current Severity: Mild Maximum Severity: Severe Worsened by: - (Nothing specifically) Relieved by: Nothing Nausea/Vomiting/Emesis GI Symptom: Positive for Nausea and Vomiting Onset: Today Quality: Negative for Nonbilious, Blood streaks, Coffee ground and Hematemesis Diarrhea/Melena/Hematochezia GI Symptom: Negative for Diarrhea, Melena and Hematochezia Associated Symptoms Associated Symptoms: Positive for - (Patient has a suprapubic catheter in because of spina bifida and neuropathy due to diabetes); Negative for Dysuria, Frequency and Hematuria Narrative Narrative: Patient is a 40-year-old woman with multiple medical problems who presents with pulsatile upper abdominal pain that started last evening at 2200. Patient states the pain at times intensifies. Is now generalized it hurts more in the lower abdomen. She is status post laparoscopic cholecystectomy. She does have a suprapubic catheter in place. She is completing her last day of antibiotics for urinary tract infection. Patient denies fever, chills night sweats. Patient states she forced herself to have a small bowel movement prior to coming. She has not passed gas since yesterday. She does have history of gastroparesis. She denies headache, visual, ocular auditory symptoms. She denies cardiac or respiratory symptoms. She denies rash. She denies weight loss or weight gain. Prior similar symptoms: No Recent Illness/Hospitalization: No PFSH PFSH Medical History Anxiety and depression Arthritis Cellulitis of left lower extremity Chronic back pain Chronic nausea Constipation Delayed wound healing Diabetes mellitus, type II Diabetic polyneuropathy Diabetic ulcer of left heel with fat layer exposed DJD (degenerative joint disease) of thoracic spine Dysthymic disorder Essential hypertension Hematochezia History of kidney stones History of migraine Hydronephrosis of right kidney Hyperglycemia Hyperlipidemia Infection of bladder catheter Insomnia Lipomeningocele Lower extremity edema Morbid obesity with BMI of 40.0-44.9, adult Neurogenic bladder Neurogenic bowel Non-compliance Non-smoker Normochromic normocytic anemia Panic attacks PSVT (paroxysmal supraventricular tachycardia) Sepsis Sepsis Spina bifida aperta of lumbar spine Thyroid cyst Type 2 diabetes mellitus with diabetic polyneuropathy Ulcer of left heel and midfoot with fat layer exposed Uninodular goiter Urinary tract infection UTI (urinary tract infection) UTI (urinary tract infection) Weakness Home Medications furosemide 20 mg PO DAILY@1700 08/28/18 [History Last Taken 12/22/20] furosemide 40 mg PO BREAKFAST 04/05/19 [History Last Taken 12/22/20] insulin glargine 100 unit/mL (3 mL) subcutaneous pen 30 unit SC QHS 11/01/19 [History Last Taken 12/21/20] oxybutynin chloride 15 mg tablet,extended release 24 hr 15 mg PO DAILY 11/12/19 [History Last Taken 12/22/20] propranolol 10 mg PO BID 01/13/20 [History Last Taken 12/22/20] acetaminophen 1,000 mg PO TID PRN PRN 02/12/20 [History Last Taken 09/24/20 19:24] phenazopyridine 200 mg PO BID PRN PRN #10 tab 07/13/20 [Rx Last Taken 12/19/20] trazodone 100 mg PO QHS 01/19/21 [History Last Taken Unknown] atorvastatin 80 mg tablet 20 mg PO DAILY tab 01/29/21 [History Last Taken Unknown] insulin aspart (niacinamide)(U-100) 100 unit/mL(3 mL) subcutaneous pen 0 - 100 ml SUBCUT PRN PRN 01/29/21 [History Last Taken Unknown] lisinopril 5 mg tablet 5 mg PO DAILY #90 tab 01/29/21 [Rx Last Taken Unknown] pen needle, diabetic 32 gauge x #400 ea 03/05/21 [Rx Last Taken Unknown] levofloxacin 750 mg PO DAILY #7 tab 03/23/21 [Rx Last Taken Unknown] glimepiride 2 mg tablet 2 mg PO BID #180 tab 03/31/21 [Rx Last Taken Unknown] hydrocodone-acetaminophen 1 tab PO Q4H PRN PRN 2 Days #8 tablet 04/04/21 [Rx Last Taken Unknown] Allergy/AdvReac Type Severity Reaction Status Date / Time mushroom Allergy Anaphylaxis Verified 05/05/21 14:27 peanut Allergy Anaphylaxis Verified 05/05/21 14:27 Gadolinium-MRI Contrast AdvReac Vomiting Verified 05/05/21 14:27 Medium Latex, Natural Rubber AdvReac Rash Verified 05/05/21 14:27 Family History Mother CVA (cerebral vascular accident) Thyroid disorder Diabetes Hypertension Heart disease Hyperlipidemia Myocardial infarction, Onset Age: 54 mother had diabetes Father Cancer skin Grandmother Cancer liver Other Arthritis Skin cancer Surgical History history insertion suprapubic catheter History of cholecystectomy History of dilation and curettage History of spinal surgery Hx of foot surgery Hx of ventral hernia repair S/P thyroid biopsy (~11/06/19) Status post gastric surgery Social History household members: significant other Smoking Status: Never smoker alcohol intake: current substance use type: does not use ROS ROS ED Constitutional Constitutional ED: Denies chills, fever(s), subjective, sweats or weight loss ENT ENT ED: Denies ear pain, rhinorrhea or sore throat Cardiovascular Cardiovascular: Denies chest pain, orthopnea, palpitations, paroxysmal nocturnal dyspnea or racing heartbeat Respiratory/Chest Respiratory/Chest: Denies cough, dyspnea, dyspnea on exertion, orthopnea, paroxysmal nocturnal dyspnea or sputum Gastrointestinal Gastrointestinal: Reports abdominal pain, constipation, nausea and vomiting; Denies diarrhea or melena Genitourinary Genitourinary ED: Reports other Details: Patient has a suprapubic catheter in place due to spina bifida and neuropathy ; Denies dysuria, hematuria or urinary frequency Musculoskeletal Musculoskeletal: Denies arthralgias, back pain, myalgias or neck pain Integumentary Denies abscess, Abrasions or rash Neurologic Neurologic: Reports paresthesias; Denies headache(s) or weakness Psychiatric Psychiatric: Reports depression Endocrine Endocrinology: Reports other Details: Blood sugar 5 minutes ago was 191. ; Denies polydipsia, polyphagia or polyuria Hematologic/Lymphatic Hematologic/Lymphatic: Denies easy bleeding or easy bruising EXAM Physical Exam Const Vital Signs: 05/05/21 14:23 05/05/21 16:22 Temperature 97.8 F Temperature Source Temporal Pulse Rate 92 Respiratory Rate 16 Blood Pressure 116/72 128/76 H Blood Pressure Mean 86 93 Pulse Ox 97 99 Oxygen Delivery Method Room Air Room Air Positive well nourished, well developed and obese General Appearance ED: well developed; Negative for NAD or pallor Nutritional Appearance: obese HEENT Reports TM's clear and moist mucous membranes normocephalic and atraumatic Tympanic Membrane ED: Yes TM's clear Eyes PERRL and EOMs intact bilaterally General Eye ED: Negative for pale conjunctiva or scleral icterus Neck no lymphadenopathy, supple and no JVD Resp normal respiratory effort and clear to auscultation bilaterally Cardio regular rate, regular rhythm, S1 normal heart sound, S2 normal heart sound and no murmurs GI no masses; Negative for non-tender or non-distended GI Narrative: There is no obvious umbilical or ventral hernia. Patient states she had this once before it was due to a hernia. Inspection: abdominal distention Auscultation: hypoactive bowel sounds; Negative for normoactive bowel sounds or hyperactive bowel sounds Palpation: soft, tender and guarding; Negative for rigid, hepatomegaly, splenomegaly, hernia, mass, pulsatile mass or rebound tenderness present Narrative: Suprapubic catheter draining clear straw-colored urine Back/Spine Negative for no CVA tenderness Extremity full ROM General Extremety ED: Negative for edema or tenderness General Extremity: Negative for edema Neuro CN's II-XII intact bilaterally and moves all extremities Sensorium / Orientation: alert and oriented to person Psych mental status grossly normal and thought process normal Skin no wounds General Skin Exam: Negative for jaundice or pallor Lesions: no lesions Rashes: no rashes MDM MDM MDM Narrative Medical decision making narrative: Differential is abdominal pain due to gastro paresis, ileus, mechanical obstruction, partial small bowel obstruction due to prior surgery. Will obtain appropriate blood work, x-ray and patient was medicated with Zofran and morphine for the nausea and pain respectively. Lab Data Attestation: I reviewed the patient's lab results. Lab results narrative: White count, H&H and differential are normal. Electrolytes, renal function are normal. Glucose is slightly elevated 188 with a normal CO2 and anion gap. Hepatic enzymes are normal. Labs: Laboratory Results - last 24 hr 05/05/21 05/05/21 15:30 15:30 WBC 8.9 RBC 4.77 Hgb 14.3 Hct 42.9 MCV 89.9 MCH 30.0 MCHC 33.3 RDW Std Deviation 42.8 RDW Coeff of Claude 13.0 Plt Count 240 MPV 10.7 Immature Gran % (Auto) 0.900 Neut % (Auto) 65.3 Lymph % (Auto) 19.6 [place] % (Auto) 10.0 Eos % (Auto) 3.5 Baso % (Auto) 0.7 Absolute Neuts (auto) 5.8 Absolute Lymphs (auto) 1.75 Nucleated RBC % 0 Sodium 137 Potassium 3.9 Chloride 104 Carbon Dioxide 25.0 Anion Gap 8 BUN 10 Creatinine 0.93 Estim Creat Clear Calc 64.23 Est GFR (MDRD) Af Amer 86 Est GFR (MDRD) Non-Af 71 BUN/Creatinine Ratio 10.8 Glucose 188 H Calcium 9.5 Total Bilirubin 0.40 AST 26 ALT 48 Alkaline Phosphatase 69 Total Protein 8.3 H Albumin 3.7 Globulin 4.6 H Albumin/Globulin Ratio 0.8 L Lipase 108 Radiography Diagnostic Testing: Clinical Impression(s) from Imaging Studies Acute Abdomen Series 05/05/21 15:09 IMPRESSION: Stool throughout the colon. Electronically Signed: Scott Castillo MD at 16:14 EST , Service support , Three-view x-ray of the abdomen/abdominal series reveals a normal cardiac silhouette and size. Perihilar region normal. Lung parenchyma normal. Osseous structures appear normal. Abdominal portion reveals significant amount of fecal stasis with multiple surgical clips noted. There is no evidence of ileus or obstruction. Suprapubic catheter is noted. Discharge Plan Triage Chief Complaint: Abd Pain ED Provider: Dominic Dealo Dx/Rx/DC Orders Clinical Impression: Obstipation, Gastric paresis, Spina bifida Instructions: ED Constipation (Adult) Prescriptions: No Action Lantus Solostar U-100 Insulin 100 unit/mL (3 mL) insulin pen 30 unit SC QHS RF: 0 Fiasp FlexTouch U-100 Insulin 100 unit/mL (3 mL) insulin pen 0 - 100 ml subcut PRN PRN (Reason: Hyperglycemia) RF: 0 atorvastatin 80 mg tablet 20 mg PO DAILY RF: 0 lisinopril 5 mg tablet 5 mg PO DAILY Qty: 90 RF: 3 (DME) pen needle, diabetic [BD Ultra-Fine Hope Pen Needle] 32 gauge x 5/32 needle See Rx Instructions .ROUTE .MEDSUPPLY Qty: 400 RF: 6 glimepiride 2 mg tablet 2 mg PO BID Qty: 180 RF: 3 furosemide 20 MG tablet 20 mg PO DAILY@1700 RF: 0 furosemide 40 MG tablet 40 mg PO BREAKFAST RF: 0 oxybutynin chloride 15 mg tablet extended release 24hr 15 mg PO DAILY RF: 0 propranolol 10 MG tablet 10 mg PO BID RF: 0 acetaminophen 500 MG tablet 1,000 mg PO TID PRN PRN (Reason: Pain Or Fever) RF: 0 phenazopyridine 200 MG tablet 200 mg PO BID PRN PRN (Reason: Pain) Qty: 10 RF: 0 trazodone 100 mg tablet 100 mg PO QHS RF: 0 levofloxacin 750 mg tablet 750 mg PO DAILY Qty: 7 RF: 0 hydrocodone-acetaminophen [hydrocodone-acetaminophen] 1 TABLET tablet 1 tab PO Q4H PRN PRN (Reason: Pain) 2 Days Qty: 8 RF: 0 Primary Care Provider: Will Shukla Referrals: Will Shukla MD [Primary Care Provider] - 3-5 Days if not improving Activity Restrictions/Additional Instructions: 1. Tomorrow morning drink 10 ounces of mag citrate. 4 hours after drinking mag citrate drink 1 glass of MiraLAX. Continue to drink a glass of MiraLAX every 1- 2 hours until you have results. Disposition Disposition: Home, Self Care
[2021-05-05] MEDS: Morphine 4 MG/ML Syringe IV (15:34)
[2021-05-05] MEDS: Ondansetron 4 MG/2 ML Vial IV (15:34)
[2021-05-05 15:43] LABS: Absolute Lymphocyte Count 1.75 X10^3/uL (0.83-4.51); Absolute Neutrophil Count 5.8 X10^3/uL (2.0-7.7); Basophil# 0.06 X10^3/uL; Basophil% 0.7 % (0-1); Eosinophil# 0.31 X10^3/uL; Eosinophils% 3.5 % (0-5); Hematocrit 42.9 % (37-47); Hemoglobin 14.3 g/dL (12.0-15.0); Lymphocyte # 1.75 X10^3/ul (0.83-4.51); Lymphocyte % 19.6 % (19-41); Mean Corp Hgb Conc 33.3 g/dL (32-36); Mean Corpuscular Volume 89.9 fL (81-99); Mean Platelet Vol. 10.7 fl (6.2-12.0); Monocyte# 0.89 X10^3/uL; NRBC Flagged by Analyzer 0 % (0-5); Neutrophil # 5.83 X10^3/uL (2.7-7.7); Neutrophil % 65.3 % (47-70); Platelet Count 240 K/mm3 (150-450); RBC Distribution Width SD 42.8 fl (35.1-43.9); Red Blood Count 4.77 M/mm3 (4.2-5.4); White Blood Count 8.9 K/mm3 (4.4-11.0)
[2021-05-05 16:06] LABS: ALB/GLOB Ratio 0.8 RATIO (0.9-2.4); AST(SGOT) 26 U/L (15-37); Alanine Aminotransfer ALT/SGPT 48 U/L (13-56); Albumin, Serum 3.7 g/dL (3.2-5.0); Alkaline Phosphatase 69 U/L (45-117); Anion Gap 8 (5-15); BUN 10 mg/dL (7-18); BUN/Creat Ratio 10.8 RATIO (10-20); Calcium,Total 9.5 mg/dL (8.5-10.1); Chloride 104 mmol/L (98-107); Creatinine, Serum 0.93 mg/dL (0.55-1.02); EST Glomerular Filtration Rate 71 mL/min (>60); Est Glom Filt Rate - Afr Amer 86 mL/min (>60); Estimated Creatinine Clearance 64.23 ml/min; Globulin 4.6 g/dL (2.2-4.2); Glucose 188 mg/dL (74-106); Lipase 108 U/L (73-393); Potassium 3.9 mmol/L (3.5-5.1); Protein, Total 8.3 g/dL (6.4-8.2); Sodium Level 137 mmol/L (136-145)
[2021-05-05 16:22] VITALS: BP 128/76; O2SAT 99
[2021-05-05 16:42] VITALS: BP 123/90; PULSE 71; RESP 16; O2SAT 98
== END 2021-05-05 16:43 | disposition home or self-care (01) ==
PROVIDERS: Emergency Provider Emergency Medicine; PCP Family Medicine
DX: K59.00 Constipation, unspecified (principal); Q05.9 Spina bifida, unspecified; K31.84 Gastroparesis; E66.9 Obesity, unspecified; N39.0 Urinary tract infection, site not specified; D64.9 Anemia, unspecified; E78.5 Hyperlipidemia, unspecified; F32.A Depression, unspecified; F41.9 Anxiety disorder, unspecified; G47.00 Insomnia, unspecified; I10 Essential (primary) hypertension; G89.29 Other chronic pain; E11.42 Type 2 diabetes mellitus with diabetic polyneuropathy; E66.01 Morbid (severe) obesity due to excess calories; Z68.41 Body mass index [BMI] 40.0-44.9, adult; Z79.4 Long term (current) use of insulin; Z87.442 Personal history of urinary calculi; Z90.49 Acquired absence of other specified parts of digestive tract; Z91.19 Patient's noncompliance with other medical treatment and regimen
CPT/HCPCS: 74022; 80053; 83690; 85025; 96374; 96375; 99283; J7030; A4216; J2405

== ENCOUNTER 2021-06-03 22:46 | Emergency (ER) | payer MEDICARE, MEDICAID, SELFPAY ==
[2021-06-03 22:47] VITALS: BP 128/80; PULSE 112; RESP 18; TEMP 36.7; O2SAT 98; BMI 42.5
[2021-06-03 23:51] LABS: Absolute Lymphocyte Count 1.29 X10^3/uL (0.83-4.51); Absolute Neutrophil Count 7.1 X10^3/uL (2.0-7.7); Basophil# 0.07 X10^3/uL; Basophil% 0.7 % (0-1); Eosinophil# 0.15 X10^3/uL; Eosinophils% 1.6 % (0-5); Hematocrit 43.9 % (37-47); Hemoglobin 14.6 g/dL (12.0-15.0); Lymphocyte # 1.29 X10^3/ul (0.83-4.51); Lymphocyte % 13.8 % (19-41); Mean Corp Hgb Conc 33.3 g/dL (32-36); Mean Corpuscular Hgb 29.3 pg (27.0-32.0); Mean Platelet Vol. 10.9 fl (6.2-12.0); Monocyte# 0.68 X10^3/uL; Monocyte% 7.2 % (0-10); NRBC Flagged by Analyzer 0 % (0-5); Neutrophil # 7.05 X10^3/uL (2.7-7.7); Neutrophil % 75.2 % (47-70); POSITIVE COUNT YES; Platelet Count 198 K/mm3 (150-450); RBC Distribution Width CV 12.9 % (11.6-14.6); RBC Distribution Width SD 41.7 fl (35.1-43.9); Red Blood Count 4.99 M/mm3 (4.2-5.4); White Blood Count 9.4 K/mm3 (4.4-11.0)
[2021-06-03 23:52] LABS: Differential Indicated SCAN CRITERIA MET
[2021-06-03 23:57] LABS: Anion Gap 10 (5-15); BUN 18 mg/dL (7-18); BUN/Creat Ratio 15.5 RATIO (10-20); Calcium,Total 9.9 mg/dL (8.5-10.1); Chloride 100 mmol/L (98-107); Creatinine, Serum 1.16 mg/dL (0.55-1.02); EST Glomerular Filtration Rate 55 mL/min (>60); Est Glom Filt Rate - Afr Amer 67 mL/min (>60); Estimated Creatinine Clearance 49.13 ml/min; Glucose 291 mg/dL (74-106); Potassium 3.7 mmol/L (3.5-5.1); Sodium Level 134 mmol/L (136-145)
[2021-06-04 00:12] LABS: Lactic Acid 1.6 mmol/L (0.4-1.9)
[2021-06-04 00:15] VITALS: BP 135/84; PULSE 92; RESP 18; TEMP 36.9; O2SAT 99
[2021-06-04 00:26] LABS: Differential Comment SCANNED
--- NOTE | 2021-06-04 00:47 | EX.ED.DYSGE1 ---
HPI History of Present Illness Chief Complaint: Complaint Narrative Narrative: Patient is a 40-year-old female with past medical history of chronic indwelling suprapubic catheter which she receives secondary to spina bifida. She states that 2 days ago she had the catheter changed and that they messed it up. She states that since that time she has been having increased pain with subjective fevers and chills. She reports she is concerned that she is to getting a kidney infection as she has had these in the past and needed admitted to the hospital for IV antibiotics and therefore comes in for evaluation. [facility] Medical History Anxiety and depression Arthritis Cellulitis of left lower extremity Chronic back pain Chronic nausea Constipation Delayed wound healing Diabetes mellitus, type II Diabetic polyneuropathy Diabetic ulcer of left heel with fat layer exposed DJD (degenerative joint disease) of thoracic spine Dysthymic disorder Essential hypertension Hematochezia History of kidney stones History of migraine Hydronephrosis of right kidney Hyperglycemia Hyperlipidemia Infection of bladder catheter Insomnia Lipomeningocele Lower extremity edema Morbid obesity with BMI of 40.0-44.9, adult Neurogenic bladder Neurogenic bowel Non-compliance Non-smoker Normochromic normocytic anemia Panic attacks PSVT (paroxysmal supraventricular tachycardia) Sepsis Sepsis Spina bifida aperta of lumbar spine Thyroid cyst Type 2 diabetes mellitus with diabetic polyneuropathy Ulcer of left heel and midfoot with fat layer exposed Uninodular goiter Urinary tract infection UTI (urinary tract infection) UTI (urinary tract infection) Weakness Home Medications furosemide 20 mg PO DAILY@1700 08/28/18 [History Last Taken 12/22/20] furosemide 40 mg PO BREAKFAST 04/05/19 [History Last Taken 12/22/20] insulin glargine 100 unit/mL (3 mL) subcutaneous pen 30 unit SC QHS 11/01/19 [History Last Taken 12/21/20] oxybutynin chloride 15 mg tablet,extended release 24 hr 15 mg PO DAILY 11/12/19 [History Last Taken 12/22/20] propranolol 10 mg PO BID 01/13/20 [History Last Taken 12/22/20] acetaminophen 1,000 mg PO TID PRN PRN 02/12/20 [History Last Taken 09/24/20 19:24] phenazopyridine 200 mg PO BID PRN PRN #10 tab 07/13/20 [Rx Last Taken 12/19/20] trazodone 100 mg PO QHS 01/19/21 [History Last Taken Unknown] atorvastatin 80 mg tablet 20 mg PO DAILY tab 01/29/21 [History Last Taken Unknown] insulin aspart (niacinamide)(U-100) 100 unit/mL(3 mL) subcutaneous pen 0 - 100 ml SUBCUT PRN PRN 01/29/21 [History Last Taken Unknown] lisinopril 5 mg tablet 5 mg PO DAILY #90 tab 01/29/21 [Rx Last Taken Unknown] pen needle, diabetic 32 gauge x #400 ea 03/05/21 [Rx Last Taken Unknown] levofloxacin 750 mg PO DAILY #7 tab 03/23/21 [Rx Last Taken Unknown] glimepiride 2 mg tablet 2 mg PO BID #180 tab 03/31/21 [Rx Last Taken Unknown] hydrocodone-acetaminophen 1 tab PO Q4H PRN PRN 2 Days #8 tablet 04/04/21 [Rx Last Taken Unknown] Allergy/AdvReac Type Severity Reaction Status Date / Time mushroom Allergy Anaphylaxis Verified 06/03/21 22:51 peanut Allergy Anaphylaxis Verified 06/03/21 22:51 Gadolinium-MRI Contrast AdvReac Vomiting Verified 06/03/21 22:51 Medium Latex, Natural Rubber AdvReac Rash Verified 06/03/21 22:51 Family History Mother CVA (cerebral vascular accident) Thyroid disorder Diabetes Hypertension Heart disease Hyperlipidemia Myocardial infarction, Onset Age: 54 mother had diabetes Father Cancer skin Grandmother Cancer liver Other Arthritis Skin cancer Surgical History history insertion suprapubic catheter History of cholecystectomy History of dilation and curettage History of spinal surgery Hx of foot surgery Hx of ventral hernia repair S/P thyroid biopsy (~11/06/19) Status post gastric surgery Social History household members: significant other Smoking Status: Never smoker alcohol intake: current substance use type: does not use ROS ROS ED Constitutional Constitutional ED: Reports chills, fever(s) and subjective Eyes Eyes: Denies change in vision ENT ENT ED: Denies sore throat Cardiovascular Cardiovascular: Denies chest pain Respiratory/Chest Respiratory/Chest: Denies cough or dyspnea Gastrointestinal Gastrointestinal: Reports abdominal pain; Denies diarrhea, nausea or vomiting Musculoskeletal Musculoskeletal: Reports myalgias Integumentary Denies rash Neurologic Neurologic: Denies headache(s) Hematologic/Lymphatic Hematologic/Lymphatic: Denies easy bleeding or easy bruising EXAM Physical Exam Const Vital Signs: 06/03/21 22:47 06/04/21 00:15 06/04/21 01:19 Temperature 98.0 F 98.4 F Temperature Source Temporal Oral Pulse Rate 112 H 92 Respiratory Rate 18 18 18 Blood Pressure 128/80 H 135/84 H Blood Pressure Mean 96 101 Pulse Ox 98 99 Oxygen Delivery Method Room Air Room Air Positive well nourished and well developed General Appearance ED: well developed Eyes PERRL and EOMs intact bilaterally Neck supple Resp normal respiratory effort and clear to auscultation bilaterally Cardio regular rhythm Rate: tachycardic GI non-distended GI Narrative: Mild diffuse pain with palpation without voluntary guarding or rigidity Auscultation: normoactive bowel sounds Palpation: soft Narrative: Suprapubic catheter is in place draining clear yellow urine with mild sediment. There is no surrounding soft tissue changes to suggest infection at the insertion site Extremity normal to inspection Neuro oriented x3 and CN's II-XII intact bilaterally Sensorium / Orientation: alert Motor Exam: strength 5/5 throughout Psych Psych Narrative: Patient has a depressed/flat affect Skin no rashes or lesions noted MDM MDM MDM Narrative Medical decision making narrative: Patient presented to the ER slightly tachycardic but otherwise afebrile and normotensive. She reported that she developed symptoms of subjective fevers and chills with myalgias following her recent catheter exchange. She reports she is worried about a possible kidney infection as this is had her in the hospital in the past. Therefore elected to perform basic laboratory studies. Patient's white count is normal there is no left shift. Lactic acid is also normal. Creatinine is slightly elevated from her baseline at 1.16 but this is not high enough to cause acute kidney injury. I elected not to check a urine sample at this time as she has a chronic indwelling catheter and these are typically colonized and give false results. Therefore this time as she is afebrile with no leukocytosis left shift or lactic acidosis I do not feel she is developing pyelonephritis or urosepsis. We discussed the possible Covid swab based on her constellation of symptoms with patient does not want this obtain. Therefore at this time as vitals are stable and work-up reveals no signs of acute kidney injury urosepsis/pyelonephritis or signs of DKA she can be discharged home Lab Data Attestation: I reviewed the patient's lab results. Labs: Laboratory Results - last 24 hr 06/03/21 06/03/21 06/03/21 23:36 23:36 23:36 WBC 9.4 RBC 4.99 Hgb 14.6 Hct 43.9 MCV 88.0 MCH 29.3 MCHC 33.3 RDW Std Deviation 41.7 RDW Coeff of Claude 12.9 Plt Count 198 MPV 10.9 Immature Gran % (Auto) 1.500 H Neut % (Auto) 75.2 H Lymph % (Auto) 13.8 L [place] % (Auto) 7.2 Eos % (Auto) 1.6 Baso % (Auto) 0.7 Absolute Neuts (auto) 7.1 Absolute Lymphs (auto) 1.29 Nucleated RBC % 0 Differential Comment SCANNED Sodium 134 L Potassium 3.7 Chloride 100 Carbon Dioxide 24.0 Anion Gap 10 BUN 18 Creatinine 1.16 H Estim Creat Clear Calc 49.13 Est GFR (MDRD) Af Amer 67 Est GFR (MDRD) Non-Af 55 L BUN/Creatinine Ratio 15.5 Glucose 291 H Lactic Acid 1.6 Calcium 9.9 Discharge Plan Triage Chief Complaint: Complaint ED Provider: Alexander Hooks Dx/Rx/DC Orders Clinical Impression: Hyperglycemia, Myalgia Instructions: Discharge Instructions Caring ..., ED Myalgias Prescriptions: No Action Lantus Solostar U-100 Insulin 100 unit/mL (3 mL) insulin pen 30 unit SC QHS RF: 0 Fiasp FlexTouch U-100 Insulin 100 unit/mL (3 mL) insulin pen 0 - 100 ml subcut PRN PRN (Reason: Hyperglycemia) RF: 0 atorvastatin 80 mg tablet 20 mg PO DAILY RF: 0 lisinopril 5 mg tablet 5 mg PO DAILY Qty: 90 RF: 3 (DME) pen needle, diabetic [BD Ultra-Fine Hope Pen Needle] 32 gauge x 5/32 needle See Rx Instructions .ROUTE .MEDSUPPLY Qty: 400 RF: 6 glimepiride 2 mg tablet 2 mg PO BID Qty: 180 RF: 3 furosemide 20 MG tablet 20 mg PO DAILY@1700 RF: 0 furosemide 40 MG tablet 40 mg PO BREAKFAST RF: 0 oxybutynin chloride 15 mg tablet extended release 24hr 15 mg PO DAILY RF: 0 propranolol 10 MG tablet 10 mg PO BID RF: 0 acetaminophen 500 MG tablet 1,000 mg PO TID PRN PRN (Reason: Pain Or Fever) RF: 0 phenazopyridine 200 MG tablet 200 mg PO BID PRN PRN (Reason: Pain) Qty: 10 RF: 0 trazodone 100 mg tablet 100 mg PO QHS RF: 0 levofloxacin 750 mg tablet 750 mg PO DAILY Qty: 7 RF: 0 hydrocodone-acetaminophen [hydrocodone-acetaminophen] 1 TABLET tablet 1 tab PO Q4H PRN PRN (Reason: Pain) 2 Days Qty: 8 RF: 0 Primary Care Provider: Will Shukla Referrals: Will Shukla MD [Primary Care Provider] - Disposition Disposition: Home, Self Care
[2021-06-04] MEDS: 0.9% Normal Saline 1,000 ML 999 ML IV (00:54)
[2021-06-04] MEDS: Ondansetron 4 MG/2 ML Vial IV (00:54)
[2021-06-04] MEDS: Morphine 4 MG/ML Syringe IV (01:18)
[2021-06-04 01:19] VITALS: RESP 18
== END 2021-06-04 02:47 | disposition home or self-care (01) ==
PROVIDERS: Emergency Provider Emergency Medicine; PCP Family Medicine; Visit Provider Emergency Medicine
DX: R73.9 Hyperglycemia, unspecified (principal); T83.84XA Pain due to genitourinary prosthetic devices, implants and grafts, initial encounter; M79.10 Myalgia, unspecified site; X58.XXXA Exposure to other specified factors, initial encounter
CPT/HCPCS: 80048; 83605; 85025; 96361; 96374; 96375; 99283; A4216; J2405

== ENCOUNTER 2021-06-27 23:20 | Emergency (ER) | payer MEDICARE, MEDICAID, SELFPAY ==
[2021-06-27 23:21] VITALS: BP 156/92; PULSE 104; RESP 22; TEMP 37.1; O2SAT 93; BMI 43.0
--- NOTE | 2021-06-27 23:41 | EDS_ITS ---
HPI History of Present Illness Chief Complaint: Complaint Informant: patient Onset/Context/Timing Onset: Today Context: Sudden Onset Timing: Continuous Quality: Throbbing, spasms Location: Kidneys and bladder Worsened by: Nothing Relieved by: Nothing Narrative Narrative: Patient presents with bilateral flank pain and suprapubic pain that began tonight. Patient states it began approximately 30 minutes prior to arrival. Patient states she has a throbbing sensation over her kidneys and a spasm sensation over her bladder area. Patient states nothing makes it worse and nothing makes it better. Patient states she noted foul odor to her urine. Patient admits to some nausea and vomiting. Patient also noted some blood in her urine. Patient states she had to irrigate her suprapubic catheter tonight because there were blood clots obstructing her catheter. Patient states she has pain over both flanks. Patient states she also had an episode of chest pain when this began. [facility] Medical History Anxiety and depression Arthritis Cellulitis of left lower extremity Chronic back pain Chronic nausea Constipation Delayed wound healing Diabetes mellitus, type II Diabetic polyneuropathy Diabetic ulcer of left heel with fat layer exposed DJD (degenerative joint disease) of thoracic spine Dysthymic disorder Essential hypertension Hematochezia History of kidney stones History of migraine Hydronephrosis of right kidney Hyperglycemia Hyperlipidemia Infection of bladder catheter Insomnia Lipomeningocele Lower extremity edema Morbid obesity with BMI of 40.0-44.9, adult Neurogenic bladder Neurogenic bowel Non-compliance Non-smoker Normochromic normocytic anemia Panic attacks PSVT (paroxysmal supraventricular tachycardia) Sepsis Sepsis Spina bifida aperta of lumbar spine Thyroid cyst Type 2 diabetes mellitus with diabetic polyneuropathy Ulcer of left heel and midfoot with fat layer exposed Uninodular goiter Urinary tract infection UTI (urinary tract infection) UTI (urinary tract infection) Weakness Home Medications furosemide 20 mg PO DAILY@1700 08/28/18 [History Last Taken 12/22/20] furosemide 40 mg PO BREAKFAST 04/05/19 [History Last Taken 12/22/20] insulin glargine 100 unit/mL (3 mL) subcutaneous pen 30 unit SC QHS 11/01/19 [History Last Taken 12/21/20] oxybutynin chloride 15 mg tablet,extended release 24 hr 15 mg PO DAILY 11/12/19 [History Last Taken 12/22/20] propranolol 10 mg PO BID 01/13/20 [History Last Taken 12/22/20] acetaminophen 1,000 mg PO TID PRN PRN 02/12/20 [History Last Taken 09/24/20 19:24] phenazopyridine 200 mg PO BID PRN PRN #10 tab 07/13/20 [Rx Last Taken 12/19/20] trazodone 100 mg PO QHS 01/19/21 [History Last Taken Unknown] atorvastatin 80 mg tablet 20 mg PO DAILY tab 01/29/21 [History Last Taken Unknown] insulin aspart (niacinamide)(U-100) 100 unit/mL(3 mL) subcutaneous pen 0 - 100 ml SUBCUT PRN PRN 01/29/21 [History Last Taken Unknown] lisinopril 5 mg tablet 5 mg PO DAILY #90 tab 01/29/21 [Rx Last Taken Unknown] pen needle, diabetic 32 gauge x 5/32 #400 ea 03/05/21 [Rx Last Taken Unknown] levofloxacin 750 mg PO DAILY #7 tab 03/23/21 [Rx Last Taken Unknown] glimepiride 2 mg tablet 2 mg PO BID #180 tab 03/31/21 [Rx Last Taken Unknown] amoxicillin-pot clavulanate 1 tab PO Q12H #20 tablet 06/28/21 [Rx Last Taken Unknown] Allergy/AdvReac Type Severity Reaction Status Date / Time mushroom Allergy Anaphylaxis Verified 06/03/21 22:51 peanut Allergy Anaphylaxis Verified 06/03/21 22:51 Gadolinium-MRI Contrast AdvReac Vomiting Verified 06/03/21 22:51 Medium Latex, Natural Rubber AdvReac Rash Verified 06/03/21 22:51 Family History Mother CVA (cerebral vascular accident) Thyroid disorder Diabetes Hypertension Heart disease Hyperlipidemia Myocardial infarction, Onset Age: 54 mother had diabetes Father Cancer skin Grandmother Cancer liver Other Arthritis Skin cancer Surgical History history insertion suprapubic catheter History of cholecystectomy History of dilation and curettage History of spinal surgery Hx of foot surgery Hx of ventral hernia repair S/P thyroid biopsy (~11/06/19) Status post gastric surgery Social History household members: significant other Smoking Status: Never smoker alcohol intake: current substance use type: does not use ROS ROS ED Constitutional Constitutional ED: Reports chills and subjective; Denies fever(s) Eyes Eyes: Reports blurry vision; Denies change in vision ENT ENT ED: Denies rhinorrhea or sore throat Cardiovascular Cardiovascular: Reports chest pain; Denies palpitations Respiratory/Chest Respiratory/Chest: Denies cough or dyspnea Gastrointestinal Gastrointestinal: Reports nausea and vomiting Genitourinary Genitourinary ED: Denies dysuria or hematuria Musculoskeletal Musculoskeletal: Reports back pain; Denies neck pain Integumentary Denies abscess or rash Neurologic Neurologic: Denies headache(s) or weakness Allergic/Immunologic Allergic/Immunologic ED: Denies mouth swelling or urticaria EXAM Physical Exam Const Vital Signs: 06/27/21 23:21 06/28/21 01:29 Temperature 98.8 F Temperature Source Temporal Pulse Rate 104 H 88 Respiratory Rate 22 H 18 Blood Pressure 156/92 H Blood Pressure Mean 113 Pulse Ox 93 98 Oxygen Delivery Method Room Air Room Air Positive well nourished, well developed and obese General Appearance ED: well developed Nutritional Appearance: obese HEENT Reports moist mucous membranes Neck supple and no JVD Resp normal respiratory effort and clear to auscultation bilaterally Cardio regular rate, regular rhythm and no murmurs GI normal to inspection, nondistended, normoactive bowel sounds Palpation: soft and tender suprapubic; Negative for guarding or rebound tenderness present Back/Spine General Back: CVA tenderness bilateral Neuro oriented x3 and CN's II-XII intact bilaterally Sensorium / Orientation: alert Psych mental status grossly normal MDM MDM MDM Narrative Medical decision making narrative: Patient was given morphine and Zofran here. CBC shows a leukocytosis of 15.9. Comprehensive metabolic profile was obtained and was essentially within normal limits with the exception of an elevated glucose of 294. Anion gap was normal. Lactate was normal. Urinalysis does show evidence of urinary tract infection with a leukocyte esterase of 100 and positive nitrites and 10-25 white blood cells. There is 4+ bacteria. Urine culture was ordered. Patient was given a dose of Rocephin here. Patient has grown out E. coli in the past which has been sensitive to Augmentin. Patient was given a prescription for Augmentin and Zofran. Patient was instructed to take Tylenol as needed for any fevers or chills. Patient was instructed to follow-up with her primary care physician and urologist in 3 to 5 days. Patient understood and was agreeable with the plan. All questions were answered. Lab Data Attestation: I reviewed the patient's lab results. Labs: Laboratory Results - last 24 hr 06/27/21 06/27/21 06/27/21 23:30 23:30 23:30 WBC 15.9 H RBC 4.66 Hgb 13.6 Hct 41.4 MCV 88.8 MCH 29.2 MCHC 32.9 RDW Std Deviation 44.1 H RDW Coeff of Claude 13.6 Plt Count 215 MPV 11.2 Immature Gran % (Auto) 1.800 H Neut % (Auto) 70.3 H Lymph % (Auto) 17.9 L [place] % (Auto) 7.5 Eos % (Auto) 1.9 Baso % (Auto) 0.6 Absolute Neuts (auto) 11.2 H Absolute Lymphs (auto) 2.85 Nucleated RBC % 0 Sodium 135 L Potassium 4.0 Chloride 103 Carbon Dioxide 25.0 Anion Gap 7 BUN 11 Creatinine 1.00 Estim Creat Clear Calc 56.99 Est GFR (MDRD) Af Amer 79 Est GFR (MDRD) Non-Af 65 BUN/Creatinine Ratio 11.0 Glucose 294 H Lactic Acid 1.5 Calcium 8.9 Total Bilirubin 0.30 AST 45 H ALT 56 Alkaline Phosphatase 88 Total Protein 8.0 Albumin 3.6 Globulin 4.4 H Albumin/Globulin Ratio 0.8 L Urine Color Urine Clarity Urine pH Ur Specific [place] Urine Protein Urine Glucose (UA) Urine Ketones Urine Occult Blood Urine Nitrite Urine Bilirubin Urine Urobilinogen Ur Leukocyte Esterase Urine RBC Urine WBC Ur Squamous Epith Cells Amorphous Sediment Urine Bacteria Urine Mucus 06/28/21 00:10 WBC RBC Hgb Hct MCV MCH MCHC RDW Std Deviation RDW Coeff of Claude Plt Count MPV Immature Gran % (Auto) Neut % (Auto) Lymph % (Auto) [place] % (Auto) Eos % (Auto) Baso % (Auto) Absolute Neuts (auto) Absolute Lymphs (auto) Nucleated RBC % Sodium Potassium Chloride Carbon Dioxide Anion Gap BUN Creatinine Estim Creat Clear Calc Est GFR (MDRD) Af Amer Est GFR (MDRD) Non-Af BUN/Creatinine Ratio Glucose Lactic Acid Calcium Total Bilirubin AST ALT Alkaline Phosphatase Total Protein Albumin Globulin Albumin/Globulin Ratio Urine Color Yellow Urine Clarity Cloudy Urine pH 6.5 Ur Specific [place] 1.015 Urine Protein 30 H Urine Glucose (UA) 1000 H Urine Ketones 5 H Urine Occult Blood 25 H Urine Nitrite Positive H Urine Bilirubin Negative Urine Urobilinogen Normal Ur Leukocyte Esterase 100 H Urine RBC 0-5 SEEN Urine WBC 10-25 SEEN Ur Squamous Epith Cells 0-5 SEEN Amorphous Sediment 1+ Urine Bacteria 4+ Urine Mucus 0 SEEN Discharge Plan Triage Chief Complaint: Complaint ED Provider: Rigo Espinal Dx/Rx/DC Orders Clinical Impression: Pyelonephritis Instructions: ED Pyelonephritis, Female (Adult) Prescriptions: New amoxicillin-pot clavulanate [amoxicillin-pot clavulanate] 875 MG tablet 1 tab PO Q12H Qty: 20 RF: 0 No Action Lantus Solostar U-100 Insulin 100 unit/mL (3 mL) insulin pen 30 unit SC QHS RF: 0 Fiasp FlexTouch U-100 Insulin 100 unit/mL (3 mL) insulin pen 0 - 100 ml subcut PRN PRN (Reason: Hyperglycemia) RF: 0 atorvastatin 80 mg tablet 20 mg PO DAILY RF: 0 lisinopril 5 mg tablet 5 mg PO DAILY Qty: 90 RF: 3 (DME) pen needle, diabetic [BD Ultra-Fine Hope Pen Needle] 32 gauge x 5/32 needle See Rx Instructions .ROUTE .MEDSUPPLY Qty: 400 RF: 6 glimepiride 2 mg tablet 2 mg PO BID Qty: 180 RF: 3 furosemide 20 MG tablet 20 mg PO DAILY@1700 RF: 0 furosemide 40 MG tablet 40 mg PO BREAKFAST RF: 0 oxybutynin chloride 15 mg tablet extended release 24hr 15 mg PO DAILY RF: 0 propranolol 10 MG tablet 10 mg PO BID RF: 0 acetaminophen 500 MG tablet 1,000 mg PO TID PRN PRN (Reason: Pain Or Fever) RF: 0 phenazopyridine 200 MG tablet 200 mg PO BID PRN PRN (Reason: Pain) Qty: 10 RF: 0 trazodone 100 mg tablet 100 mg PO QHS RF: 0 levofloxacin 750 mg tablet 750 mg PO DAILY Qty: 7 RF: 0 Primary Care Provider: Will Shukla Referrals: Will Shukla MD [Primary Care Provider] - 3-5 Days Disposition Disposition: Home, Self Care
[2021-06-27 23:54] LABS: Absolute Lymphocyte Count 2.85 X10^3/uL (0.83-4.51); Absolute Neutrophil Count 11.2 X10^3/uL (2.0-7.7); Basophil% 0.6 % (0-1); Eosinophils% 1.9 % (0-5); Hematocrit 41.4 % (37-47); Hemoglobin 13.6 g/dL (12.0-15.0); Lymphocyte # 2.85 X10^3/ul (0.83-4.51); Lymphocyte % 17.9 % (19-41); Mean Corp Hgb Conc 32.9 g/dL (32-36); Mean Corpuscular Hgb 29.2 pg (27.0-32.0); Mean Corpuscular Volume 88.8 fL (81-99); Mean Platelet Vol. 11.2 fl (6.2-12.0); Monocyte# 1.19 X10^3/uL; Monocyte% 7.5 % (0-10); NRBC Flagged by Analyzer 0 % (0-5); Neutrophil # 11.15 X10^3/uL (2.7-7.7); Neutrophil % 70.3 % (47-70); Platelet Count 215 K/mm3 (150-450); RBC Distribution Width CV 13.6 % (11.6-14.6); RBC Distribution Width SD 44.1 fl (35.1-43.9); Red Blood Count 4.66 M/mm3 (4.2-5.4); White Blood Count 15.9 K/mm3 (4.4-11.0)
[2021-06-28] MEDS: Morphine 4 MG/ML Syringe IV (00:10)
[2021-06-28] MEDS: Ondansetron 4 MG/2 ML Vial IV (00:10)
[2021-06-28 00:13] LABS: Mucous, Urine 0 SEEN /hpf (<or=2+)
[2021-06-28 00:22] LABS: Color, Urine Yellow (Yellow); Glucose, Dipstick 1000 mg/dl (Normal); Ketone-Dipstick 5 mg/dl (Negative); Leukocyte Esterase-Dipstick 100 /ul (Negative); Nitrite-Dipstick Positive (Negative); Occult Blood-Urine 25 /ul (Negative); Protein-Dipstick 30 mg/dl (Negative); Specific Gravity, Urine 1.015 (1.002-1.030); Urine Bilirubin Dipstick Negative (Negative); Urine Clarity Cloudy (Clear); Urine Urobilinogen Normal (Normal); Urine pH 6.5 (5.0 - 8.0)
[2021-06-28 00:24] LABS: ALB/GLOB Ratio 0.8 RATIO (0.9-2.4); AST(SGOT) 45 U/L (15-37); Alanine Aminotransfer ALT/SGPT 56 U/L (13-56); Albumin, Serum 3.6 g/dL (3.2-5.0); Alkaline Phosphatase 88 U/L (45-117); Anion Gap 7 (5-15); BUN 11 mg/dL (7-18); Calcium,Total 8.9 mg/dL (8.5-10.1); Chloride 103 mmol/L (98-107); EST Glomerular Filtration Rate 65 mL/min (>60); Est Glom Filt Rate - Afr Amer 79 mL/min (>60); Estimated Creatinine Clearance 56.99 ml/min; Globulin 4.4 g/dL (2.2-4.2); Glucose 294 mg/dL (74-106); Lactic Acid 1.5 mmol/L (0.4-1.9); Sodium Level 135 mmol/L (136-145)
[2021-06-28 00:44] LABS: Red Blood Cells-Urine 0-5 SEEN /hpf (0-5); White Blood Cells 10-25 SEEN /hpf (0-5)
[2021-06-28 00:45] LABS: Amorphous Sediment 1+; Bacteria 4+ /hpf (None Seen); Squamous Epithelial Cells - UA 0-5 SEEN /hpf (5-10)
[2021-06-28] MEDS: Ceftriaxone 1 GM/50 ML BAG IV (01:20)
[2021-06-28 01:29] VITALS: PULSE 88; RESP 18; O2SAT 98
[2021-06-28] MEDS: Acetaminophen 500 MG Tablet 1000 MG PO (01:40)
== END 2021-06-28 01:59 | disposition home or self-care (01) ==
PROVIDERS: Emergency Provider Emergency Medicine; PCP Family Medicine; Visit Provider Emergency Medicine
DX: N12 Tubulo-interstitial nephritis, not specified as acute or chronic (principal); E11.42 Type 2 diabetes mellitus with diabetic polyneuropathy; I10 Essential (primary) hypertension; E78.5 Hyperlipidemia, unspecified; N32.89 Other specified disorders of bladder
CPT/HCPCS: 80053; 81001; 83605; 85025; 87086; 87088; 96365; 96375; 99284; A4216; J2405

== ENCOUNTER 2021-06-28 12:32 | Emergency (ER) | payer MEDICARE, MEDICAID, SELFPAY ==
[2021-06-28 12:34] VITALS: BP 136/95; PULSE 109; RESP 22; TEMP 36.6; O2SAT 98; BMI 42.7
--- NOTE | 2021-06-28 13:05 | EDS_ITS ---
HPI History of Present Illness Chief Complaint: Cellulitis Informant: patient Narrative Narrative: 40-year-old female presents to the emergency department with concerns for cellulitis of the left leg. Patient has a care plan here. She was seen last night emergency room for urinary tract infection and started on Augmentin. She states that when she woke up today she noticed redness of the left leg and is having chills. No fever in triage. Patient talks of excruciating pain in the leg that was worse that her excruciating pain from her urinary tract infection last night. She mentions excruciating pain multiple times. This is been a problem in the past. [facility] Medical History Anxiety and depression Arthritis Cellulitis of left lower extremity Chronic back pain Chronic nausea Constipation Delayed wound healing Diabetes mellitus, type II Diabetic polyneuropathy Diabetic ulcer of left heel with fat layer exposed DJD (degenerative joint disease) of thoracic spine Dysthymic disorder Essential hypertension Hematochezia History of kidney stones History of migraine Hydronephrosis of right kidney Hyperglycemia Hyperlipidemia Infection of bladder catheter Insomnia Lipomeningocele Lower extremity edema Morbid obesity with BMI of 40.0-44.9, adult Neurogenic bladder Neurogenic bowel Non-compliance Non-smoker Normochromic normocytic anemia Panic attacks PSVT (paroxysmal supraventricular tachycardia) Sepsis Sepsis Spina bifida aperta of lumbar spine Thyroid cyst Type 2 diabetes mellitus with diabetic polyneuropathy Ulcer of left heel and midfoot with fat layer exposed Uninodular goiter Urinary tract infection UTI (urinary tract infection) UTI (urinary tract infection) Weakness Home Medications furosemide 20 mg PO DAILY@1700 08/28/18 [History Last Taken 12/22/20] furosemide 40 mg PO BREAKFAST 04/05/19 [History Last Taken 12/22/20] insulin glargine 100 unit/mL (3 mL) subcutaneous pen 30 unit SC QHS 11/01/19 [History Last Taken 12/21/20] oxybutynin chloride 15 mg tablet,extended release 24 hr 15 mg PO DAILY 11/12/19 [History Last Taken 12/22/20] propranolol 10 mg PO BID 01/13/20 [History Last Taken 12/22/20] acetaminophen 1,000 mg PO TID PRN PRN 02/12/20 [History Last Taken 09/24/20 19:24] phenazopyridine 200 mg PO BID PRN PRN #10 tab 07/13/20 [Rx Last Taken 12/19/20] trazodone 100 mg PO QHS 01/19/21 [History Last Taken Unknown] atorvastatin 80 mg tablet 20 mg PO DAILY tab 01/29/21 [History Last Taken Unknown] insulin aspart (niacinamide)(U-100) 100 unit/mL(3 mL) subcutaneous pen 0 - 100 ml SUBCUT PRN PRN 01/29/21 [History Last Taken Unknown] lisinopril 5 mg tablet 5 mg PO DAILY #90 tab 01/29/21 [Rx Last Taken Unknown] pen needle, diabetic 32 gauge x #400 ea 03/05/21 [Rx Last Taken Unknown] levofloxacin 750 mg PO DAILY #7 tab 03/23/21 [Rx Last Taken Unknown] glimepiride 2 mg tablet 2 mg PO BID #180 tab 03/31/21 [Rx Last Taken Unknown] amoxicillin-pot clavulanate 1 tab PO Q12H #20 tablet 06/28/21 [Rx Last Taken Unknown] clindamycin HCl [Cleocin HCl] 300 mg PO Q6H 10 Days #40 capsule 06/28/21 [Rx Last Taken Unknown] Allergy/AdvReac Type Severity Reaction Status Date / Time mushroom Allergy Anaphylaxis Verified 06/28/21 12:34 peanut Allergy Anaphylaxis Verified 06/28/21 12:34 Gadolinium-MRI Contrast AdvReac Vomiting Verified 06/28/21 12:34 Medium Latex, Natural Rubber AdvReac Rash Verified 06/28/21 12:34 Family History Mother CVA (cerebral vascular accident) Thyroid disorder Diabetes Hypertension Heart disease Hyperlipidemia Myocardial infarction, Onset Age: 54 mother had diabetes Father Cancer skin Grandmother Cancer liver Other Arthritis Skin cancer Surgical History history insertion suprapubic catheter History of cholecystectomy History of dilation and curettage History of spinal surgery Hx of foot surgery Hx of ventral hernia repair S/P thyroid biopsy (~11/06/19) Status post gastric surgery Social History household members: significant other Smoking Status: Never smoker alcohol intake: current substance use type: does not use ROS ROS ED Constitutional Constitutional ED: Denies chills or weight loss Eyes Eyes: Denies change in vision or diplopia ENT ENT ED: Denies ear pain, rhinorrhea or sore throat Cardiovascular Cardiovascular: Denies chest pain, orthopnea, palpitations or racing heartbeat Respiratory/Chest Respiratory/Chest: Denies cough, dyspnea or orthopnea Gastrointestinal Gastrointestinal: Reports abdominal pain; Denies diarrhea, nausea or vomiting Genitourinary Genitourinary ED: Denies dysuria, hematuria or urinary frequency Musculoskeletal Musculoskeletal: Denies arthralgias or myalgias Integumentary Reports rash; Denies abscess Neurologic Neurologic: Denies headache(s) or weakness Psychiatric Psychiatric: Denies anxiety, depression, suicidal ideation or suicidal thoughts Endocrine Endocrinology: Denies polydipsia, polyphagia or polyuria Allergic/Immunologic Allergic/Immunologic ED: Denies mouth swelling, tongue swelling or urticaria EXAM Physical Exam Const Vital Signs: 06/28/21 12:34 Temperature 97.8 F Temperature Source Temporal Pulse Rate 109 H Respiratory Rate 22 H Blood Pressure 136/95 H Blood Pressure Mean 108 Pulse Ox 98 Oxygen Delivery Method Room Air Positive well nourished, well developed and obese General Appearance ED: well developed Nutritional Appearance: obese HEENT Reports normocephalic, head/scalp atraumatic, TM's clear and moist mucous membr anes Negative for trauma Tympanic Membrane ED: Yes TM's clear Eyes PERRL and EOMs intact bilaterally Neck no lymphadenopathy, supple and no JVD Resp normal respiratory effort and clear to auscultation bilaterally Cardio regular rate, regular rhythm and no murmurs GI normal to inspection, nondistended, normoactive bowel sounds and non-tender Palpation: soft Back/Spine no CVA tenderness and normal ROM Extremity Extremity Narrative: The left lower leg demonstrates erythema calf over the ante rior aspect of the tibia. There is nothing above the knee. It stops at the level of the ankle. Simply laying the back of my hand on her leg causes her to recoil in pain General Extremety ED: Negative for edema General Extremity: Negative for edema Neuro oriented x3 and CN's II-XII intact bilaterally Sensorium / Orientation: alert Motor Exam: strength 5/5 throughout Psych mental status grossly normal Mood & Affect: Negative for depressed or tearful Skin no wounds MDM MDM MDM Narrative Medical decision making narrative: Blood work was performed last night approximately 13 hours ago. I do not think we necessarily need to repeat it but I am going to ask for blood cultures. I am going to write for clindamycin. Follow-up primary care 3 to 5 days Discharge Plan Triage Chief Complaint: Cellulitis ED Provider: Nemesio Sanderson Dx/Rx/DC Orders Clinical Impression: Cellulitis of left leg Instructions: ED Cellulitis Prescriptions: New clindamycin HCl [Cleocin HCl] 300 MG capsule 300 mg PO Q6H 10 Days Qty: 40 RF: 0 No Action Lantus Solostar U-100 Insulin 100 unit/mL (3 mL) insulin pen 30 unit SC QHS RF: 0 Fiasp FlexTouch U-100 Insulin 100 unit/mL (3 mL) insulin pen 0 - 100 ml subcut PRN PRN (Reason: Hyperglycemia) RF: 0 atorvastatin 80 mg tablet 20 mg PO DAILY RF: 0 lisinopril 5 mg tablet 5 mg PO DAILY Qty: 90 RF: 3 (DME) pen needle, diabetic [BD Ultra-Fine Hope Pen Needle] 32 gauge x 5/32 needle See Rx Instructions .ROUTE .MEDSUPPLY Qty: 400 RF: 6 glimepiride 2 mg tablet 2 mg PO BID Qty: 180 RF: 3 furosemide 20 MG tablet 20 mg PO DAILY@1700 RF: 0 furosemide 40 MG tablet 40 mg PO BREAKFAST RF: 0 oxybutynin chloride 15 mg tablet extended release 24hr 15 mg PO DAILY RF: 0 propranolol 10 MG tablet 10 mg PO BID RF: 0 acetaminophen 500 MG tablet 1,000 mg PO TID PRN PRN (Reason: Pain Or Fever) RF: 0 phenazopyridine 200 MG tablet 200 mg PO BID PRN PRN (Reason: Pain) Qty: 10 RF: 0 trazodone 100 mg tablet 100 mg PO QHS RF: 0 levofloxacin 750 mg tablet 750 mg PO DAILY Qty: 7 RF: 0 amoxicillin-pot clavulanate [amoxicillin-pot clavulanate] 875 MG tablet 1 tab PO Q12H Qty: 20 RF: 0 Primary Care Provider: Will Shukla Referrals: Will Shukla MD [Primary Care Provider] - 3-5 Days Disposition Disposition: Home, Self Care
[2021-06-28 13:59] VITALS: PULSE 89; RESP 15; O2SAT 99
--- NOTE | 2021-06-28 14:00 | ED.RN ---
dr consulted on use of antibiotics prior to blood cultures. also was comfortable with a single culture instead of a series. evangelista otto rn [id number]
== END 2021-06-28 14:00 | disposition home or self-care (01) ==
PROVIDERS: Emergency Provider Emergency Medicine; PCP Family Medicine; Visit Provider Emergency Medicine
DX: L03.116 Cellulitis of left lower limb (principal); E11.42 Type 2 diabetes mellitus with diabetic polyneuropathy; M54.9 Dorsalgia, unspecified; I10 Essential (primary) hypertension; E78.5 Hyperlipidemia, unspecified; G89.29 Other chronic pain; Z90.49 Acquired absence of other specified parts of digestive tract; Z98.84 Bariatric surgery status
CPT/HCPCS: 87040; 99282

== ENCOUNTER 2021-06-30 22:28 | Emergency (ER) | payer MEDICARE, MEDICAID, SELFPAY ==
[2021-06-30 22:28] VITALS: BP 152/108; PULSE 103; RESP 16; TEMP 36.6; O2SAT 100; BMI 42.5
--- NOTE | 2021-06-30 22:48 | EDS_ITS ---
HPI History of Present Illness Chief Complaint: Cellulitis Narrative Narrative: Patient is a 40-year-old female with history of diabetes currently on insulin. She has a history of spina bifida and chronic indwelling suprapubic catheter from this. She was seen on June 27 of this year and diagnosed with UTI and placed on Augmentin. She returned approximately 13 hours later complaining of left leg pain and was diagnosed with cellulitis and clindamycin was added. At that time there was no repeat blood work but blood cultures were added. Patient states she is taking her medications as directed but has had persistent chills and pain and secondary to this returns for repeat evaluation. [facility] Medical History Anxiety and depression Arthritis Cellulitis of left lower extremity Chronic back pain Chronic nausea Constipation Delayed wound healing Diabetes mellitus, type II Diabetic polyneuropathy Diabetic ulcer of left heel with fat layer exposed DJD (degenerative joint disease) of thoracic spine Dysthymic disorder Essential hypertension Hematochezia History of kidney stones History of migraine Hydronephrosis of right kidney Hyperglycemia Hyperlipidemia Infection of bladder catheter Insomnia Lipomeningocele Lower extremity edema Morbid obesity with BMI of 40.0-44.9, adult Neurogenic bladder Neurogenic bowel Non-compliance Non-smoker Normochromic normocytic anemia Panic attacks PSVT (paroxysmal supraventricular tachycardia) Sepsis Sepsis Spina bifida aperta of lumbar spine Thyroid cyst Type 2 diabetes mellitus with diabetic polyneuropathy Ulcer of left heel and midfoot with fat layer exposed Uninodular goiter Urinary tract infection UTI (urinary tract infection) UTI (urinary tract infection) Weakness Home Medications furosemide 20 mg PO DAILY@1700 08/28/18 [History Last Taken 12/22/20] furosemide 40 mg PO BREAKFAST 04/05/19 [History Last Taken 12/22/20] insulin glargine 100 unit/mL (3 mL) subcutaneous pen 30 unit SC QHS 11/01/19 [History Last Taken 12/21/20] oxybutynin chloride 15 mg tablet,extended release 24 hr 15 mg PO DAILY 11/12/19 [History Last Taken 12/22/20] propranolol 10 mg PO BID 01/13/20 [History Last Taken 12/22/20] acetaminophen 1,000 mg PO TID PRN PRN 02/12/20 [History Last Taken 04/29/21 19:24] phenazopyridine 200 mg PO BID PRN PRN #10 tab 07/13/20 [Rx Last Taken 12/19/20] trazodone 100 mg PO QHS 01/19/21 [History Last Taken Unknown] atorvastatin 80 mg tablet 20 mg PO DAILY tab 01/29/21 [History Last Taken Unknown] insulin aspart (niacinamide)(U-100) 100 unit/mL(3 mL) subcutaneous pen 0 - 100 ml SUBCUT PRN PRN 01/29/21 [History Last Taken Unknown] lisinopril 5 mg tablet 5 mg PO DAILY #90 tab 01/29/21 [Rx Last Taken Unknown] pen needle, diabetic 32 gauge x #400 ea 03/05/21 [Rx Last Taken Unknown] levofloxacin 750 mg PO DAILY #7 tab 03/23/21 [Rx Last Taken Unknown] glimepiride 2 mg tablet 2 mg PO BID #180 tab 03/31/21 [Rx Last Taken Unknown] amoxicillin-pot clavulanate 1 tab PO Q12H #20 tablet 06/28/21 [Rx Last Taken Unknown] clindamycin HCl [Cleocin HCl] 300 mg PO Q6H 10 Days #40 capsule 06/28/21 [Rx Last Taken Unknown] Allergy/AdvReac Type Severity Reaction Status Date / Time mushroom Allergy Anaphylaxis Verified 06/30/21 22:30 peanut Allergy Anaphylaxis Verified 06/30/21 22:30 Gadolinium-MRI Contrast AdvReac Vomiting Verified 06/30/21 22:30 Medium Latex, Natural Rubber AdvReac Rash Verified 06/30/21 22:30 Family History Mother CVA (cerebral vascular accident) Thyroid disorder Diabetes Hypertension Heart disease Hyperlipidemia Myocardial infarction, Onset Age: 54 mother had diabetes Father Cancer skin Grandmother Cancer liver Other Arthritis Skin cancer Surgical History history insertion suprapubic catheter History of cholecystectomy History of dilation and curettage History of spinal surgery Hx of foot surgery Hx of ventral hernia repair S/P thyroid biopsy (~11/06/19) Status post gastric surgery Social History household members: significant other Smoking Status: Never smoker alcohol intake: current substance use type: does not use ROS ROS ED Constitutional Constitutional ED: Reports chills and subjective; Denies fever(s) ENT ENT ED: Denies sore throat Cardiovascular Cardiovascular: Denies chest pain Respiratory/Chest Respiratory/Chest: Denies cough or dyspnea Gastrointestinal Gastrointestinal: Denies abdominal pain, diarrhea, nausea or vomiting Musculoskeletal Musculoskeletal: Reports myalgias Integumentary Denies rash Neurologic Neurologic: Denies headache(s) Hematologic/Lymphatic Hematologic/Lymphatic: Denies easy bleeding or easy bruising EXAM Physical Exam Const Vital Signs: 06/30/21 22:28 Temperature 97.8 F Temperature Source Temporal Pulse Rate 103 H Respiratory Rate 16 Blood Pressure 152/108 H Blood Pressure Mean 122 Pulse Ox 100 Oxygen Delivery Method Room Air Positive well nourished, well developed and obese General Appearance ED: well developed Nutritional Appearance: obese Eyes PERRL and EOMs intact bilaterally Neck supple Resp normal respiratory effort and clear to auscultation bilaterally Cardio regular rate and regular rhythm Extremity Extremity Narrative: 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 There is mild soft tissue swelling along the anterior distal third of the left leg with faint overlying redness consistent with mild cellulitis. There is no warmth abscess or lymphangitic streaking noted. Negative Homans' sign bilaterally. Neuro oriented x3 and CN's II-XII intact bilaterally Sensorium / Orientation: alert Motor Exam: strength 5/5 throughout Psych mental status grossly normal Skin Skin Narrative: Soft tissue changes to the left lower leg as documented above MDM MDM MDM Narrative Medical decision making narrative: Patient presented to the ER afebrile and is currently on Augmentin and clindamycin. Her physical exam did show changes consistent with mild cellulitis but there was nothing to suggest she was having systemic infection or failure of outpatient therapy. Her labs were reviewed from the previous visit as well as a blood cultures which have had no growth at this time. Repeat blood values were obtained today and her white count has reduced from 15 down to 10. She is afebrile. X-ray reveals no signs of osteomyelitis. Therefore at this time do not feel there is need for admission as the antibiotics appear to be working based on her physical exam and laboratory studies and patient was advised to continue these and is otherwise safe for discharge Lab Data Attestation: I reviewed the patient's lab results. Labs: Laboratory Results - last 24 hr 06/30/21 06/30/21 22:56 22:56 WBC 10.2 RBC 4.49 Hgb 13.0 Hct 39.4 MCV 87.8 MCH 29.0 MCHC 33.0 RDW Std Deviation 43.4 RDW Coeff of Claude 13.5 Plt Count 228 MPV 10.6 Immature Gran % (Auto) 2.100 H Neut % (Auto) 54.8 Lymph % (Auto) 28.8 Trimble % (Auto) 10.2 H Eos % (Auto) 3.5 Baso % (Auto) 0.6 Absolute Neuts (auto) 5.6 Absolute Lymphs (auto) 2.93 Nucleated RBC % 0 Sodium 136 Potassium 3.7 Chloride 104 Carbon Dioxide 23.0 Anion Gap 9 BUN 9 Creatinine 0.92 Estim Creat Clear Calc 61.95 Est GFR (MDRD) Af Amer 87 Est GFR (MDRD) Non-Af 72 BUN/Creatinine Ratio 9.7 L Glucose 302 H Calcium 8.8 Radiography Diagnostic Testing: Clinical Impression(s) from Imaging Studies Tibia/Fibula X-Ray 06/30/21 23:03 IMPRESSION: 1. Mild to moderate diffuse soft tissue swelling seen throughout the left lower leg. No subcutaneous gas is present. There is no evidence of osteomyelitis. Electronically Signed: Rich Rucker MD at 23:39 EST Reading Location ID and State: [address] [place] [address] , Service support , Discharge Plan Triage Chief Complaint: Cellulitis ED Provider: Alexander Hooks Dx/Rx/DC Orders Clinical Impression: Cellulitis Instructions: ED Cellulitis Prescriptions: No Action Lantus Solostar U-100 Insulin 100 unit/mL (3 mL) insulin pen 30 unit SC QHS RF: 0 Fiasp FlexTouch U-100 Insulin 100 unit/mL (3 mL) insulin pen 0 - 100 ml subcut PRN PRN (Reason: Hyperglycemia) RF: 0 atorvastatin 80 mg tablet 20 mg PO DAILY RF: 0 lisinopril 5 mg tablet 5 mg PO DAILY Qty: 90 RF: 3 (DME) pen needle, diabetic [BD Ultra-Fine Hope Pen Needle] 32 gauge x 5/32 needle See Rx Instructions .ROUTE .MEDSUPPLY Qty: 400 RF: 6 glimepiride 2 mg tablet 2 mg PO BID Qty: 180 RF: 3 furosemide 20 MG tablet 20 mg PO DAILY@1700 RF: 0 furosemide 40 MG tablet 40 mg PO BREAKFAST RF: 0 oxybutynin chloride 15 mg tablet extended release 24hr 15 mg PO DAILY RF: 0 propranolol 10 MG tablet 10 mg PO BID RF: 0 acetaminophen 500 MG tablet 1,000 mg PO TID PRN PRN (Reason: Pain Or Fever) RF: 0 phenazopyridine 200 MG tablet 200 mg PO BID PRN PRN (Reason: Pain) Qty: 10 RF: 0 trazodone 100 mg tablet 100 mg PO QHS RF: 0 levofloxacin 750 mg tablet 750 mg PO DAILY Qty: 7 RF: 0 amoxicillin-pot clavulanate [amoxicillin-pot clavulanate] 875 MG tablet 1 tab PO Q12H Qty: 20 RF: 0 clindamycin HCl [Cleocin HCl] 300 MG capsule 300 mg PO Q6H 10 Days Qty: 40 RF: 0 Primary Care Provider: Will Shukla Referrals: Will Shukla MD [Primary Care Provider] - Activity Restrictions/Additional Instructions: Please continue antibiotics prescribed at your previous visit and follow-up with your family doctor for repeat evaluation Disposition Disposition: Home, Self Care
[2021-06-30] MEDS: Ketorolac 30 MG/ML Syringe IV (22:54)
--- NOTE | 2021-06-30 23:03 | RAD_ITS ---
STUDY: X-RAY - LEFT TIBIA AND FIBULA REASON FOR EXAM: Female, 40 years old. COMPLAINS OF WORSENING CELLULITIS IN LEFT LEG. TECHNIQUE: 2 view(s) of the tibia and fibula were obtained. COMPARISON: None. FINDINGS: Normal visualized tibia. Normal visualized fibula. There is no demonstrated acute fracture. Mild to moderate diffuse soft tissue swelling seen throughout the left lower leg. No subcutaneous gas is present. There is no evidence of osteomyelitis. RAD/Tibia & Fibula 2 Views IMPRESSION: 1. Mild to moderate diffuse soft tissue swelling seen throughout the left lower leg. No subcutaneous gas is present. There is no evidence of osteomyelitis. Electronically Signed: Rich Rucker MD at 23:39 EST ,
[2021-06-30 23:05] LABS: Absolute Lymphocyte Count 2.93 X10^3/uL (0.83-4.51); Absolute Neutrophil Count 5.6 X10^3/uL (2.0-7.7); Basophil# 0.06 X10^3/uL; Basophil% 0.6 % (0-1); Eosinophil# 0.36 X10^3/uL; Eosinophils% 3.5 % (0-5); Hematocrit 39.4 % (37-47); Lymphocyte # 2.93 X10^3/ul (0.83-4.51); Lymphocyte % 28.8 % (19-41); Mean Corpuscular Volume 87.8 fL (81-99); Mean Platelet Vol. 10.6 fl (6.2-12.0); Monocyte# 1.04 X10^3/uL; Monocyte% 10.2 % (0-10); NRBC Flagged by Analyzer 0 % (0-5); Neutrophil # 5.58 X10^3/uL (2.7-7.7); Neutrophil % 54.8 % (47-70); Platelet Count 228 K/mm3 (150-450); RBC Distribution Width CV 13.5 % (11.6-14.6); RBC Distribution Width SD 43.4 fl (35.1-43.9); Red Blood Count 4.49 M/mm3 (4.2-5.4); White Blood Count 10.2 K/mm3 (4.4-11.0)
[2021-06-30 23:17] LABS: Anion Gap 9 (5-15); BUN 9 mg/dL (7-18); BUN/Creat Ratio 9.7 RATIO (10-20); Calcium,Total 8.8 mg/dL (8.5-10.1); Chloride 104 mmol/L (98-107); Creatinine, Serum 0.92 mg/dL (0.55-1.02); EST Glomerular Filtration Rate 72 mL/min (>60); Est Glom Filt Rate - Afr Amer 87 mL/min (>60); Estimated Creatinine Clearance 61.95 ml/min; Glucose 302 mg/dL (74-106); Potassium 3.7 mmol/L (3.5-5.1); Sodium Level 136 mmol/L (136-145)
== END 2021-06-30 23:51 | disposition home or self-care (01) ==
PROVIDERS: Emergency Provider Emergency Medicine; PCP Family Medicine; Visit Provider Emergency Medicine
DX: L03.116 Cellulitis of left lower limb (principal); Q05.9 Spina bifida, unspecified; E11.42 Type 2 diabetes mellitus with diabetic polyneuropathy; Z79.4 Long term (current) use of insulin; N39.0 Urinary tract infection, site not specified; E78.5 Hyperlipidemia, unspecified; M54.9 Dorsalgia, unspecified; I10 Essential (primary) hypertension; E66.9 Obesity, unspecified
CPT/HCPCS: 73590; 80048; 85025; 96374; 99285; A4216

== ENCOUNTER 2021-07-07 22:24 | Emergency (ER) | payer MEDICARE, MEDICAID, SELFPAY ==
[2021-07-07 22:25] VITALS: BP 129/97; PULSE 83; RESP 16; TEMP 36.2; O2SAT 97; BMI 42.5
--- NOTE | 2021-07-07 22:35 | EX.ED.DYSGE1 ---
HPI History of Present Illness Chief Complaint: Neuro S/Sx Informant: patient Narrative Narrative: 40-year-old female with a frequent ED visit history presents today out of concern for Manley's palsy. She went to her eye doctor earlier today who noted that her left eye was not closing all the way. She went home and took a nap when she woke up noticed some left facial droop. She notes a headache behind her left eye. She denies any arm or leg symptoms no speech symptoms she is a diabetic. Fever PFSH PFS Medical History (Updated 07/07/21 @ 22:[address] Nemesio Sanderson, DO) Anxiety and depression Arthritis Manley's palsy Cellulitis of left lower extremity Chronic back pain Chronic nausea Constipation Delayed wound healing Diabetes mellitus, type II Diabetic polyneuropathy Diabetic ulcer of left heel with fat layer exposed DJD (degenerative joint disease) of thoracic spine Dysthymic disorder Essential hypertension Hematochezia History of kidney stones History of migraine Hydronephrosis of right kidney Hyperglycemia Hyperlipidemia Infection of bladder catheter Insomnia Lipomeningocele Lower extremity edema Morbid obesity with BMI of 40.0-44.9, adult Neurogenic bladder Neurogenic bowel Non-compliance Non-smoker Normochromic normocytic anemia Panic attacks PSVT (paroxysmal supraventricular tachycardia) Sepsis Sepsis Spina bifida aperta of lumbar spine Thyroid cyst Type 2 diabetes mellitus with diabetic polyneuropathy Ulcer of left heel and midfoot with fat layer exposed Uninodular goiter Urinary tract infection UTI (urinary tract infection) UTI (urinary tract infection) Weakness Home Medications furosemide 20 mg PO DAILY@1700 08/28/18 [History Last Taken 12/22/20] furosemide 40 mg PO BREAKFAST 04/05/19 [History Last Taken 12/22/20] insulin glargine 100 unit/mL (3 mL) subcutaneous pen 30 unit SC QHS 11/01/19 [History Last Taken 12/21/20] oxybutynin chloride 15 mg tablet,extended release 24 hr 15 mg PO DAILY 11/12/19 [History Last Taken 12/22/20] propranolol 10 mg PO BID 01/13/20 [History Last Taken 12/22/20] acetaminophen 1,000 mg PO TID PRN PRN 02/12/20 [History Last Taken 09/24/20 19:24] phenazopyridine 200 mg PO BID PRN PRN #10 tab 02/15/21 [Rx Last Taken 12/19/20] trazodone 100 mg PO QHS 01/19/21 [History Last Taken Unknown] atorvastatin 80 mg tablet 20 mg PO DAILY tab 01/29/21 [History Last Taken Unknown] insulin aspart (niacinamide)(U-100) 100 unit/mL(3 mL) subcutaneous pen 0 - 100 ml SUBCUT PRN PRN 01/29/21 [History Last Taken Unknown] lisinopril 5 mg tablet 5 mg PO DAILY #90 tab 01/29/21 [Rx Last Taken Unknown] pen needle, diabetic 32 gauge x #400 ea 03/05/21 [Rx Last Taken Unknown] levofloxacin 750 mg PO DAILY #7 tab 03/23/21 [Rx Last Taken Unknown] glimepiride 2 mg tablet 2 mg PO BID #180 tab 03/31/21 [Rx Last Taken Unknown] amoxicillin-pot clavulanate 1 tab PO Q12H #20 tablet 06/28/21 [Rx Last Taken Unknown] clindamycin HCl [Cleocin HCl] 300 mg PO Q6H 10 Days #40 capsule 06/28/21 [Rx Last Taken Unknown] prednisone 60 mg PO DAILY 6 Days #18 tablet 07/07/21 [Rx Last Taken Unknown] Allergy/AdvReac Type Severity Reaction Status Date / Time mushroom Allergy Anaphylaxis Verified 07/07/21 22:25 peanut Allergy Anaphylaxis Verified 07/07/21 22:25 Gadolinium-MRI Contrast AdvReac Vomiting Verified 07/07/21 22:25 Medium Latex, Natural Rubber AdvReac Rash Verified 07/07/21 22:25 Family History Mother CVA (cerebral vascular accident) Thyroid disorder Diabetes Hypertension Heart disease Hyperlipidemia Myocardial infarction, Onset Age: 54 mother had diabetes Father Cancer skin Grandmother Cancer liver Other Arthritis Skin cancer Surgical History history insertion suprapubic catheter History of cholecystectomy History of dilation and curettage History of spinal surgery Hx of foot surgery Hx of ventral hernia repair S/P thyroid biopsy (~11/06/19) Status post gastric surgery Social History household members: significant other Smoking Status: Never smoker alcohol intake: current substance use type: does not use ROS ROS ED Constitutional Constitutional ED: Denies chills, fever(s) or weight loss Eyes Eyes: Denies change in vision or diplopia ENT ENT ED: Denies ear pain, rhinorrhea or sore throat Cardiovascular Cardiovascular: Denies chest pain, orthopnea, palpitations or racing heartbeat Respiratory/Chest Respiratory/Chest: Denies cough, dyspnea or orthopnea Gastrointestinal Gastrointestinal: Denies abdominal pain, diarrhea, nausea or vomiting Genitourinary Genitourinary ED: Reports urinary frequency; Denies dysuria or hematuria Musculoskeletal Musculoskeletal: Denies arthralgias or myalgias Integumentary Reports rash; Denies abscess Neurologic Neurologic: Reports weakness and other Details: See history of present illness ; Denies headache(s) Psychiatric Psychiatric: Denies anxiety, depression, suicidal ideation or suicidal thoughts Endocrine Endocrinology: Denies polydipsia, polyphagia or polyuria Allergic/Immunologic Allergic/Immunologic ED: Denies mouth swelling, tongue swelling or urticaria EXAM Physical Exam Const Vital Signs: 07/07/21 22:25 Temperature 97.1 F L Temperature Source Temporal Pulse Rate 83 Respiratory Rate 16 Blood Pressure 129/97 H Blood Pressure Mean 107 Pulse Ox 97 Oxygen Delivery Method Room Air Positive well nourished, well developed and obese General Appearance ED: well developed Nutritional Appearance: obese HEENT Reports normocephalic, head/scalp atraumatic, TM's clear and moist mucous membranes Negative for trauma Tympanic Membrane ED: Yes TM's clear Eyes PERRL and EOMs intact bilaterally Neck no lymphadenopathy, supple and no JVD Resp normal respiratory effort and clear to auscultation bilaterally Cardio regular rate, regular rhythm and no murmurs GI normal to inspection, nondistended, normoactive bowel sounds and non-tender Palpation: soft Back/Spine no CVA tenderness and normal ROM Extremity normal to inspection General Extremety ED: Negative for edema General Extremity: Negative for edema Neuro oriented x3 Neuro Narrative: Patient has a mild left-sided facial droop. She is unable to fully close the left eye. She has incomplete wrinkling of the forehead. There are no lesions noted in the ear canal or tympanic membrane on the nose. Sensorium / Orientation: alert Motor Exam: strength 5/5 throughout Psych mental status grossly normal Mood & Affect: Negative for depressed or tearful Skin no rashes or lesions noted and no wounds MDM MDM MDM Narrative Medical decision making narrative: This appears to be Manley's palsy. Patient will be started on steroids. Follow-up with primary care Discharge Plan Triage Chief Complaint: Neuro S/Sx ED Provider: Nemesio Sanderson Dx/Rx/DC Orders Clinical Impression: Manley's palsy Instructions: ED Manley's Palsy Prescriptions: New prednisone 20 MG tablet 60 mg PO DAILY 6 Days Qty: 18 RF: 0 No Action Lantus Solostar U-100 Insulin 100 unit/mL (3 mL) insulin pen 30 unit SC QHS RF: 0 Fiasp FlexTouch U-100 Insulin 100 unit/mL (3 mL) insulin pen 0 - 100 ml subcut PRN PRN (Reason: Hyperglycemia) RF: 0 atorvastatin 80 mg tablet 20 mg PO DAILY RF: 0 lisinopril 5 mg tablet 5 mg PO DAILY Qty: 90 RF: 3 (DME) pen needle, diabetic [BD Ultra-Fine Hope Pen Needle] 32 gauge x 5/32 needle See Rx Instructions .ROUTE .MEDSUPPLY Qty: 400 RF: 6 glimepiride 2 mg tablet 2 mg PO BID Qty: 180 RF: 3 furosemide 20 MG tablet 20 mg PO DAILY@1700 RF: 0 furosemide 40 MG tablet 40 mg PO BREAKFAST RF: 0 oxybutynin chloride 15 mg tablet extended release 24hr 15 mg PO DAILY RF: 0 propranolol 10 MG tablet 10 mg PO BID RF: 0 acetaminophen 500 MG tablet 1,000 mg PO TID PRN PRN (Reason: Pain Or Fever) RF: 0 phenazopyridine 200 MG tablet 200 mg PO BID PRN PRN (Reason: Pain) Qty: 10 RF: 0 trazodone 100 mg tablet 100 mg PO QHS RF: 0 levofloxacin 750 mg tablet 750 mg PO DAILY Qty: 7 RF: 0 amoxicillin-pot clavulanate [amoxicillin-pot clavulanate] 875 MG tablet 1 tab PO Q12H Qty: 20 RF: 0 clindamycin HCl [Cleocin HCl] 300 MG capsule 300 mg PO Q6H 10 Days Qty: 40 RF: 0 Primary Care Provider: Will Shukla Referrals: Will Shukla MD [Primary Care Provider] - 1 Week Disposition Disposition: Home, Self Care
[2021-07-07] MEDS: predniSONE 20 MG Tablet 60 MG PO (22:51)
[2021-07-07 22:53] VITALS: BMI 42.5
== END 2021-07-07 22:54 | disposition home or self-care (01) ==
LOC: ED 22:39
PROVIDERS: Emergency Provider Emergency Medicine; PCP Family Medicine; Visit Provider Emergency Medicine
DX: G51.0 Bell's palsy (principal); E11.42 Type 2 diabetes mellitus with diabetic polyneuropathy; I10 Essential (primary) hypertension; M54.9 Dorsalgia, unspecified; E78.5 Hyperlipidemia, unspecified
CPT/HCPCS: 99282

== ENCOUNTER 2021-08-20 01:05 | Emergency (ER) | payer MEDICARE, MEDICAID, SELFPAY ==
[2021-08-20 02:49] LABS: Absolute Neutrophil Count 6.2 X10^3/uL (2.0-7.7); Basophil# 0.09 X10^3/uL; Basophil% 0.8 % (0-1); Eosinophil# 0.19 X10^3/uL; Eosinophils% 1.8 % (0-5); Hematocrit 41.1 % (37-47); Hemoglobin 13.9 g/dL (12.0-15.0); Lymphocyte % 30.4 % (19-41); Mean Corp Hgb Conc 33.8 g/dL (32-36); Mean Corpuscular Hgb 30.3 pg (27.0-32.0); Mean Corpuscular Volume 89.5 fL (81-99); Monocyte# 1.02 X10^3/uL; Monocyte% 9.4 % (0-10); NRBC Flagged by Analyzer 0 % (0-5); Neutrophil # 6.17 X10^3/uL (2.7-7.7); Platelet Count 214 K/mm3 (150-450); RBC Distribution Width CV 13.4 % (11.6-14.6); RBC Distribution Width SD 43.9 fl (35.1-43.9); Red Blood Count 4.59 M/mm3 (4.2-5.4); White Blood Count 10.8 K/mm3 (4.4-11.0)
[2021-08-20 03:08] LABS: Anion Gap 7 (5-15); BUN 14 mg/dL (7-18); BUN/Creat Ratio 13.2 RATIO (10-20); Calcium,Total 8.6 mg/dL (8.5-10.1); Chloride 105 mmol/L (98-107); Creatinine, Serum 1.06 mg/dL (0.55-1.02); EST Glomerular Filtration Rate 61 mL/min (>60); Est Glom Filt Rate - Afr Amer 74 mL/min (>60); Glucose 333 mg/dL (74-106); Potassium 3.6 mmol/L (3.5-5.1); Sodium Level 136 mmol/L (136-145)
--- NOTE | 2021-08-20 03:12 | CT_ITS ---
HISTORY: Abdominal pain. History of spina bifida with neurogenic bladder, indwelling catheter, kidney stones. EXAMINATION: CT Abdomen And Pelvis W/O Contrast Injection TECHNIQUE: Helically acquired images were obtained of the abdomen and pelvis without oral or IV contrast. A radiation dose optimization technique was used for this scan. IV Contrast dosage and agent: None. Oral contrast: None. COMPARISON: Contrast-enhanced CT abdomen and pelvis from 04/03/21 FINDINGS: LOWER CHEST: Punctate calcified granulomas within right lung. Heart normal size. Mild scarring abutting small, chronic defect along posterior right hemidiaphragm. LIVER: Fatty infiltration of liver. GALLBLADDER AND BILIARY TREE: Status post cholecystectomy. No significant biliary ductal dilation. KIDNEYS AND URETERS: Moderate right renal cortical scarring again noted with 4.5 mm calcified stone within right lower pole. Stable mildly ectatic right ureter with no ureteral stone. No hydronephrosis or perinephric edema. ADRENAL GLANDS: Non-enlarged. SPLEEN: Normal size without discrete mass. PANCREAS: No discrete mass or peripancreatic inflammation. BOWEL: Stable appearance of nondilated and noninflamed appendix projecting medially from cecum into small umbilical fat hernia. No abnormal stomach or bowel distension. No focal inflammatory change observed. LYMPH NODES: No enlarged mesenteric or retroperitoneal lymph nodes. PERITONEUM: No free air or significant free fluid. No other fluid collection. VESSELS: Major vessels are normal caliber and unremarkable. URINARY BLADDER: Suprapubic Morales catheter in placed. Decompressed urinary bladder. REPRODUCTIVE ORGANS: Stable lobulated appearance of uterus suggesting fibroids. ABDOMINAL WALL: Ventral hernia repair mesh in place. Small residual umbilical fat hernia containing normal appendix. BONES: Lumbosacral spina bifida defect is stable. CT/Abdomen/Pelvis without Cont IMPRESSION: 1. Stable exam with no evidence of acute intra-abdominal abnormality. 2. Chronic right renal cortical scarring with nonobstructing 4.5 mm right renal stone. 3. Stable appearance of normal appendix projecting into small umbilical fat hernia. 4. Other chronic and nonurgent findings within body of report. Individualized dose optimization techniques were used for this CT. at 0355 Reported and signed by: Jhony Mccrary MD Electronically Signed: Jhony Mccrary MD at 3:53 EDT ,
[2021-08-20 03:13] LABS: Mucous, Urine 0 SEEN /hpf (<or=2+)
[2021-08-20 03:35] LABS: Color, Urine Yellow (Yellow); Glucose, Dipstick 1000 mg/dl (Normal); Ketone-Dipstick Negative (Negative); Leukocyte Esterase-Dipstick 500 /ul (Negative); Nitrite-Dipstick Positive (Negative); Occult Blood-Urine 25 /ul (Negative); Protein-Dipstick 100 mg/dl (Negative); Specific Gravity, Urine 1.015 (1.002-1.030); Urine Bilirubin Dipstick Negative (Negative); Urine Clarity Sl. Cloudy (Clear); Urine Urobilinogen Normal (Normal)
[2021-08-20 03:41] LABS: Bacteria 4+ /hpf (None Seen); White Blood Cells >100 SEEN /hpf (0-5)
[2021-08-20 03:42] LABS: Red Blood Cells-Urine 0-5 SEEN /hpf (0-5); Squamous Epithelial Cells - UA 0-5 SEEN /hpf (5-10)
--- NOTE | 2021-08-20 03:48 | EDS_ITS ---
HPI HPI - GI History of Present Illness Chief Complaint: Flank Pain Informant: patient Narrative Narrative: Patient seen on downtime, dictation performed while patient still in the department. Patient presents with increased suprapubic right flank pain a few hours prior to arrival nausea without vomiting. History of spinal bifida neurogenic bladder chronic Morales. Last Morales exchange was 2 weeks ago. She is followed by Dr. Farhat Hancock at [facility] for urology. States chills and sweats however no fevers. She is concerned due to stating 4 days ago had a KUB for gastric emptying pill evaluation noted concerns for kidney stones. Similar symptoms 2 months ago. She has had multiple pyelonephritis in the past. Reports finished prednisone a month ago for treatment of Manley's positively with resolution of symptoms. She states waxing and waning symptoms from her spinal bifida is able to walk however at times with illnesses can cause disability. Prior similar symptoms: Yes PFSH PFS Medical History Anxiety and depression Arthritis Manley's palsy Cellulitis of left lower extremity Chronic back pain Chronic nausea Constipation Delayed wound healing Diabetes mellitus, type II Diabetic polyneuropathy Diabetic ulcer of left heel with fat layer exposed DJD (degenerative joint disease) of thoracic spine Dysthymic disorder Essential hypertension Hematochezia History of kidney stones History of migraine Hydronephrosis of right kidney Hyperglycemia Hyperlipidemia Infection of bladder catheter Insomnia Lipomeningocele Lower extremity edema Morbid obesity with BMI of 40.0-44.9, adult Neurogenic bladder Neurogenic bowel Non-compliance Non-smoker Normochromic normocytic anemia Panic attacks PSVT (paroxysmal supraventricular tachycardia) Sepsis Sepsis Spina bifida aperta of lumbar spine Thyroid cyst Type 2 diabetes mellitus with diabetic polyneuropathy Ulcer of left heel and midfoot with fat layer exposed Uninodular goiter Urinary tract infection UTI (urinary tract infection) UTI (urinary tract infection) Weakness Home Medications furosemide 20 mg PO DAILY@1700 08/28/18 [History Last Taken 12/22/20] furosemide 40 mg PO BREAKFAST 04/05/19 [History Last Taken 12/22/20] insulin glargine 100 unit/mL (3 mL) subcutaneous pen 30 unit SC QHS 11/01/19 [History Last Taken 12/21/20] oxybutynin chloride 15 mg tablet,extended release 24 hr 15 mg PO DAILY 11/12/19 [History Last Taken 12/22/20] propranolol 10 mg PO BID 01/13/20 [History Last Taken 12/22/20] acetaminophen 1,000 mg PO TID PRN PRN 02/12/20 [History Last Taken 09/24/20 19:24] phenazopyridine 200 mg PO BID PRN PRN #10 tab 07/13/20 [Rx Last Taken 12/19/20] trazodone 100 mg PO QHS 01/19/21 [History Last Taken Unknown] atorvastatin 80 mg tablet 20 mg PO DAILY tab 01/29/21 [History Last Taken Unknown] insulin aspart (niacinamide)(U-100) 100 unit/mL(3 mL) subcutaneous pen 0 - 100 ml SUBCUT PRN PRN 01/29/21 [History Last Taken Unknown] lisinopril 5 mg tablet 5 mg PO DAILY #90 tab 01/29/21 [Rx Last Taken Unknown] pen needle, diabetic 32 gauge x /32 #400 ea 03/05/21 [Rx Last Taken Unknown] levofloxacin 750 mg PO DAILY #7 tab 03/23/21 [Rx Last Taken Unknown] glimepiride 2 mg tablet 2 mg PO BID #180 tab 03/31/21 [Rx Last Taken Unknown] amoxicillin-pot clavulanate 1 tab PO Q12H #20 tablet 06/28/21 [Rx Last Taken Unknown] clindamycin HCl [Cleocin HCl] 300 mg PO Q6H 10 Days #40 capsule 06/28/21 [Rx Last Taken Unknown] prednisone 60 mg PO DAILY 6 Days #18 tablet 07/07/21 [Rx Last Taken Unknown] cephalexin 500 mg PO Q8H #30 cap 08/20/21 [Rx Last Taken Unknown] oxycodone-acetaminophen [Percocet] 1 tab PO Q6H PRN 2 Days #8 tab 08/20/21 [Rx Last Taken Unknown] Allergy/AdvReac Type Severity Reaction Status Date / Time mushroom Allergy Anaphylaxis Verified 07/07/21 22:25 peanut Allergy Anaphylaxis Verified 07/07/21 22:25 Gadolinium-MRI Contrast AdvReac Vomiting Verified 07/07/21 22:25 Medium Latex, Natural Rubber AdvReac Rash Verified 07/07/21 22:25 Family History Mother CVA (cerebral vascular accident) Thyroid disorder Diabetes Hypertension Heart disease Hyperlipidemia Myocardial infarction, Onset Age: 54 mother had diabetes Father Cancer skin Grandmother Cancer liver Other Arthritis Skin cancer Surgical History history insertion suprapubic catheter History of cholecystectomy History of dilation and curettage History of spinal surgery Hx of foot surgery Hx of ventral hernia repair S/P thyroid biopsy (~11/06/19) Status post gastric surgery Social History household members: significant other Smoking Status: Never smoker alcohol intake: current substance use type: does not use ROS ROS ED Constitutional Constitutional ED: Denies chills, fever(s) or sweats Eyes Eyes: Denies change in vision ENT ENT ED: Denies dysphagia or sore throat Cardiovascular Cardiovascular: Denies chest pain, leg edema, palpitations or racing heartbeat Respiratory/Chest Respiratory/Chest: Denies cough, dyspnea or dyspnea on exertion Gastrointestinal Gastrointestinal: Reports abdominal pain and nausea; Denies diarrhea or vomiting Genitourinary Genitourinary ED: Denies dysuria, hematuria or urinary frequency Musculoskeletal Musculoskeletal: Reports back pain; Denies extremity pain or neck pain Integumentary Denies rash or wounds Neurologic Neurologic: Denies headache(s), paresthesias or weakness EXAM Physical Exam Const Vital Signs: 08/20/21 03:58 Temperature 98.6 F Temperature Source Oral Positive well nourished and well developed Constitutional Narrative: Uncomfortable, nontoxic General Appearance ED: well developed HEENT Reports moist mucous membranes normocephalic and atraumatic Eyes PERRL, EOMs intact bilaterally and conjunctivae normal General Eye ED: Yes normal appearance of both eyes Neck no lymphadenopathy and supple General: Negative for tenderness Chest Wall Chest: Negative for tenderness Resp normal respiratory effort and normal air movement Effort and Inspection: symmetric chest movement; Negative for respiratory distress Cardio regular rate, regular rhythm and no murmurs Peripheral Pulses: pulses 2+ throughout GI normal to inspection, nondistended, normoactive bowel sounds GI Narrative: Suprapubic tenderness. Palpation: Negative for guarding or rebound tenderness present Narrative: Suprapubic Morales catheter with yellow urine in the bag. Back/Spine no CVA tenderness and no thoracic nor lumbar tenderness Extremity normal to inspection General Extremety ED: Negative for edema or tenderness General Extremity: Negative for edema Neuro oriented x3 and no sensory deficits noted Sensorium / Orientation: awake and alert Skin no rashes or lesions noted and no wounds MDM MDM MDM Narrative Medical decision making narrative: Patient suprapubic discomfort chronic Morales. With reported concerns for kidney stones from x-ray renal stone protocol initiated. Initially treated with morphine Zofran IV fluids. Laboratory studies stable. Noted glucose of 333 she is a diabetic anion gap is 7. CT scan results noted nephrolithiasis without obstruction. Otherwise negative. Urine returned positive for nitrites and WBCs greater than 100. Culture was sent she is given Rocephin. Additional Dilaudid was required on reevaluation with improved control symptoms. With her suprapubic catheter she has a complicated UTI. Treated Rocephin. 10-day course of Keflex 3 times daily. She is given couple days of Percocet for additional pain control. [facility] report last prescription April 2021. She will follow-up with her urologist and her PCP. Return precautions. All questions were answered. Lab Data Attestation: I reviewed the patient's lab results. Labs: Laboratory Results - last 24 hr 08/20/21 08/20/21 08/20/21 02:40 02:40 03:07 WBC 10.8 RBC 4.59 Hgb 13.9 Hct 41.1 MCV 89.5 MCH 30.3 MCHC 33.8 RDW Std Deviation 43.9 RDW Coeff of Claude 13.4 Plt Count 214 MPV 11.0 Immature Gran % (Auto) 0.600 Neut % (Auto) 57.0 Lymph % (Auto) 30.4 [place] % (Auto) 9.4 Eos % (Auto) 1.8 Baso % (Auto) 0.8 Absolute Neuts (auto) 6.2 Absolute Lymphs (auto) 3.30 Nucleated RBC % 0 Sodium 136 Potassium 3.6 Chloride 105 Carbon Dioxide 24.0 Anion Gap 7 BUN 14 Creatinine 1.06 H Est GFR (MDRD) Af Amer 74 Est GFR (MDRD) Non-Af 61 BUN/Creatinine Ratio 13.2 Glucose 333 H Calcium 8.6 Urine Color Yellow Urine Clarity Sl. Cloudy Urine pH 6.0 Ur Specific Howell 1.015 Urine Protein 100 H Urine Glucose (UA) 1000 H Urine Ketones Negative Urine Occult Blood 25 H Urine Nitrite Positive H Urine Bilirubin Negative Urine Urobilinogen Normal Ur Leukocyte Esterase 500 H Urine RBC 0-5 SEEN Urine WBC >100 SEEN Ur Squamous Epith Cells 0-5 SEEN Urine Bacteria 4+ Urine Mucus 0 SEEN Radiography Diagnostic Testing: Clinical Impression(s) from Imaging Studies Abdomen/Pelvis CT 08/20/21 03:12 IMPRESSION: 1. Stable exam with no evidence of acute intra-abdominal abnormality. 2. Chronic right renal cortical scarring with nonobstructing 4.5 mm right renal stone. 3. Stable appearance of normal appendix projecting into small umbilical fat hernia. 4. Other chronic and nonurgent findings within body of report. Individualized dose optimization techniques were used for this CT. at 0355 Reported and signed by: Jhony Mccrary MD Electronically Signed: Jhony Mccrary MD at 3:53 EDT , Discharge Plan Triage Chief Complaint: Flank Pain ED Provider: Arnold Caban Dx/Rx/DC Orders Clinical Impression: UTI (urinary tract infection) due to urinary indwelling catheter, Abdominal pain, Neurogenic bladder, Spina bifida of lumbar spine, Hyperglycemia due to type 2 diabetes mellitus Instructions: Catheter-Linked Urinary Tract ..., ED Abdominal Pain Unkn Cause Fem Prescriptions: New cephalexin [cephalexin] 500 MG capsule 500 mg PO Q8H Qty: 30 RF: 0 oxycodone-acetaminophen [Percocet] 5-325 mg tablet 1 tab PO Q6H PRN (Reason: pain) 2 Days Qty: 8 RF: 0 No Action Lantus Solostar U-100 Insulin 100 unit/mL (3 mL) insulin pen 30 unit SC QHS RF: 0 Fiasp FlexTouch U-100 Insulin 100 unit/mL (3 mL) insulin pen 0 - 100 ml subcut PRN PRN (Reason: Hyperglycemia) RF: 0 atorvastatin 80 mg tablet 20 mg PO DAILY RF: 0 lisinopril 5 mg tablet 5 mg PO DAILY Qty: 90 RF: 3 (DME) pen needle, diabetic [BD Ultra-Fine Hope Pen Needle] 32 gauge x 5/32 needle See Rx Instructions .ROUTE .MEDSUPPLY Qty: 400 RF: 6 glimepiride 2 mg tablet 2 mg PO BID Qty: 180 RF: 3 furosemide 20 MG tablet 20 mg PO DAILY@1700 RF: 0 furosemide 40 MG tablet 40 mg PO BREAKFAST RF: 0 oxybutynin chloride 15 mg tablet extended release 24hr 15 mg PO DAILY RF: 0 propranolol 10 MG tablet 10 mg PO BID RF: 0 acetaminophen 500 MG tablet 1,000 mg PO TID PRN PRN (Reason: Pain Or Fever) RF: 0 phenazopyridine 200 MG tablet 200 mg PO BID PRN PRN (Reason: Pain) Qty: 10 RF: 0 trazodone 100 mg tablet 100 mg PO QHS RF: 0 levofloxacin 750 mg tablet 750 mg PO DAILY Qty: 7 RF: 0 amoxicillin-pot clavulanate [amoxicillin-pot clavulanate] 875 MG tablet 1 tab PO Q12H Qty: 20 RF: 0 clindamycin HCl [Cleocin HCl] 300 MG capsule 300 mg PO Q6H 10 Days Qty: 40 RF: 0 prednisone 20 MG tablet 60 mg PO DAILY 6 Days Qty: 18 RF: 0 Primary Care Provider: Will Shukla Referrals: Will Shukla MD [Primary Care Provider] - 3-5 Days Disposition Disposition: Home, Self Care
--- NOTE | 2021-08-20 03:57 | ED.RN ---
see downtime paper charting
[2021-08-20 03:58] VITALS: TEMP 37; BMI 41.5
[2021-08-20] MEDS: DiphenhydrAMINE 50 MG/ML Syringe 25 MG IV (05:09)
--- NOTE | 2021-08-20 05:39 | ED.RN ---
Addendum entered by Justa Marie 08/20/21 05:56: PT HAD ABOUT 15 ML OF ROCEPHIN LEFT WHEN ABX WAS STOPPED INFUSING. Original Note: 0500- CALLED TO PT'S ROOM. PT SKIN IS RED WITH FEW HIVES TO NECK AND BACK. PT NOTES SHE HAD ROCEPHIN PRIOR WITH NO REACTION. ROCEPHIN PLACED ON PT'S ALLERGY LIST. ASKED DR. BRAND TO PT'S ROOM. VERBAL ORDER GIVEN FOR 25 MG OF BENADRYL IV.
[2021-08-20 05:42] VITALS: BP 136/75; PULSE 103; RESP 18; O2SAT 94
[2021-08-20] MEDS: Metoclopramide 10 MG/2 ML Vial 5 MG IV (05:55)
[2021-08-20 06:14] VITALS: BP 122/79; PULSE 85; RESP 18; O2SAT 100
== END 2021-08-20 06:15 | disposition home or self-care (01) ==
PROVIDERS: Emergency Provider Emergency Medicine; PCP Family Medicine; Visit Provider Emergency Medicine
DX: T83.511A Infection and inflammatory reaction due to indwelling urethral catheter, initial encounter (principal); Q05.7 Lumbar spina bifida without hydrocephalus; E11.42 Type 2 diabetes mellitus with diabetic polyneuropathy; E11.65 Type 2 diabetes mellitus with hyperglycemia; N39.0 Urinary tract infection, site not specified; I10 Essential (primary) hypertension; E78.5 Hyperlipidemia, unspecified; N31.9 Neuromuscular dysfunction of bladder, unspecified
CPT/HCPCS: 99282; 74176; 80048; 81001; 85025; 87077; 87086; 87088; 87186; 96361; 96365; 96375; 99284; J7030; A4216; J2405

== ENCOUNTER 2021-09-17 14:27 | Emergency (ER) | payer MEDICARE, MEDICAID, SELFPAY ==
[2021-09-17 14:28] VITALS: BP 133/96; PULSE 106; RESP 16; TEMP 36.5; O2SAT 98; BMI 42.8
--- NOTE | 2021-09-17 14:43 | ED.VIS.GI ---
HPI HPI - GI History of Present Illness Chief Complaint: Complaint Detail of Chief Complaint: Bilateral lower quadrant pain and kidney pain Informant: patient Abdominal Pain/Flank Pain Onset: Days Context: Sudden Onset Timing: Continuous and Waxes and wanes Quality: Aching Location: RLQ, LLQ and Right Flank Current Severity: Mild Maximum Severity: Moderate Worsened by: Nothing Relieved by: Nothing Nausea/Vomiting/Emesis GI Symptom: Positive for Nausea and Vomiting Onset: Today Diarrhea/Melena/Hematochezia GI Symptom: Positive for - (Patient has history of constipation.); Negative for Diarrhea, Melena and Hematochezia Associated Symptoms Associated Symptoms: Positive for - (Patient has an indwelling suprapubic catheter. This was placed approximately 3 years ago. The catheter is changed monthly.) Narrative Narrative: Patient is a 40-year-old woman with history of spina bifida, neurogenic bladder and neurogenic bowel who presents with bilateral lower quadrant abdominal pain and right flank pain. She reports having an MRI at outside facility last week that revealed an ovarian cyst. She had a CAT scan performed at [facility] August 20 which revealed a nonobstructing 4 mm right renal calculus. Patient does have history of recurrent urinary tract infection and sepsis due to urinary tract infections as well as pyelonephritis. She denies fever has had chills. She denies headache, visual, ocular auditory symptoms. She denies cardiac respiratory symptoms. Prior similar symptoms: Yes Recent Illness/Hospitalization: No PFSH [facility], [facility] Medical History Anxiety and depression Arthritis Manley's palsy Cellulitis of left lower extremity Chronic back pain Chronic nausea Constipation Delayed wound healing Diabetes mellitus, type II Diabetic polyneuropathy Diabetic ulcer of left heel with fat layer exposed DJD (degenerative joint disease) of thoracic spine Dysthymic disorder Essential hypertension Hematochezia History of kidney stones History of migraine Hydronephrosis of right kidney Hyperglycemia Hyperlipidemia Infection of bladder catheter Insomnia Lipomeningocele Lower extremity edema Morbid obesity with BMI of 40.0-44.9, adult Neurogenic bladder Neurogenic bowel Non-compliance Non-smoker Normochromic normocytic anemia Panic attacks PSVT (paroxysmal supraventricular tachycardia) Sepsis Sepsis Spina bifida aperta of lumbar spine Thyroid cyst Type 2 diabetes mellitus with diabetic polyneuropathy Ulcer of left heel and midfoot with fat layer exposed Uninodular goiter Urinary tract infection UTI (urinary tract infection) UTI (urinary tract infection) Weakness Home Medications furosemide 20 mg PO DAILY@1700 08/28/18 [History Last Taken 12/22/20] furosemide 40 mg PO BREAKFAST 04/05/19 [History Last Taken 12/22/20] insulin glargine 100 unit/mL (3 mL) subcutaneous pen 30 unit SC QHS 11/01/19 [History Last Taken 12/21/20] oxybutynin chloride 15 mg tablet,extended release 24 hr 15 mg PO DAILY 11/12/19 [History Last Taken 12/22/20] propranolol 10 mg PO BID 01/13/20 [History Last Taken 12/22/20] acetaminophen 1,000 mg PO TID PRN PRN 02/12/20 [History Last Taken 09/24/20 19:24] phenazopyridine 200 mg PO BID PRN PRN #10 tab 07/13/20 [Rx Last Taken 12/19/20] trazodone 100 mg PO QHS 01/19/21 [History Last Taken Unknown] atorvastatin 80 mg tablet 20 mg PO DAILY tab 01/29/21 [History Last Taken Unknown] insulin aspart (niacinamide)(U-100) 100 unit/mL(3 mL) subcutaneous pen 0 - 100 ml SUBCUT PRN PRN 01/29/21 [History Last Taken Unknown] lisinopril 5 mg tablet 5 mg PO DAILY #90 tab 01/29/21 [Rx Last Taken Unknown] pen needle, diabetic 32 gauge x 5/32 #400 ea 03/05/21 [Rx Last Taken Unknown] levofloxacin 750 mg PO DAILY #7 tab 03/23/21 [Rx Last Taken Unknown] glimepiride 2 mg tablet 2 mg PO BID #180 tab 03/31/21 [Rx Last Taken Unknown] amoxicillin-pot clavulanate 1 tab PO Q12H #20 tablet 06/28/21 [Rx Last Taken Unknown] clindamycin HCl [Cleocin HCl] 300 mg PO Q6H 10 Days #40 capsule 06/28/21 [Rx Last Taken Unknown] prednisone 60 mg PO DAILY 6 Days #18 tablet 07/07/21 [Rx Last Taken Unknown] levofloxacin 750 mg PO DAILY #7 tab 08/20/21 [Rx Last Taken Unknown] ondansetron 4 mg PO Q6H PRN #10 tab 08/20/21 [Rx Last Taken Unknown] oxycodone-acetaminophen [Percocet] 1 tab PO Q6H PRN 2 Days #8 tab 08/20/21 [Rx Last Taken Unknown] sulfamethoxazole-trimethoprim 1 tab PO BID #14 tablet 09/17/21 [Rx Last Taken Unknown] Allergy/AdvReac Type Severity Reaction Status Date / Time ceftriaxone [From Rocephin] Allergy Hives Verified 09/17/21 14:28 mushroom Allergy Anaphylaxis Verified 09/17/21 14:28 peanut Allergy Anaphylaxis Verified 09/17/21 14:28 Gadolinium-MRI Contrast AdvReac Vomiting Verified 09/17/21 14:28 Medium Latex, Natural Rubber AdvReac Rash Verified 09/17/21 14:28 Family History Mother CVA (cerebral vascular accident) Thyroid disorder Diabetes Hypertension Heart disease Hyperlipidemia Myocardial infarction, Onset Age: 54 mother had diabetes Father Cancer skin Grandmother Cancer liver Other Arthritis Skin cancer Surgical History history insertion suprapubic catheter History of cholecystectomy History of dilation and curettage History of spinal surgery Hx of foot surgery Hx of ventral hernia repair S/P thyroid biopsy (~11/06/19) Status post gastric surgery Social History household members: significant other Smoking Status: Never smoker alcohol intake: current substance use type: does not use ROS ROS ED Constitutional Constitutional ED: Reports chills; Denies fever(s), subjective, sweats or weight loss ENT ENT ED: Denies ear pain, rhinorrhea or sore throat Cardiovascular Cardiovascular: Denies chest pain, palpitations or racing heartbeat Respiratory/Chest Respiratory/Chest: Denies cough, dyspnea or dyspnea on exertion Gastrointestinal Gastrointestinal: Reports abdominal pain, constipation, nausea and vomiting; Denies diarrhea or melena Genitourinary Genitourinary ED: Reports other Details: Patient has indwelling Morales., Suprapubic ; Denies dysuria, hematuria or urinary frequency Musculoskeletal Musculoskeletal: Reports back pain; Denies arthralgias, myalgias or neck pain Integumentary Denies Abrasions or rash Neurologic Neurologic: Denies headache(s) or weakness Endocrine Endocrinology: Denies polydipsia, polyphagia or polyuria Hematologic/Lymphatic Hematologic/Lymphatic: Denies easy bleeding or easy bruising EXAM Physical Exam Const Vital Signs: 09/17/21 14:28 Temperature 97.7 F L Temperature Source Temporal Pulse Rate 106 H Respiratory Rate 16 Blood Pressure 133/96 H Blood Pressure Mean 108 Pulse Ox 98 Oxygen Delivery Method Room Air Positive well nourished, well developed, obese and unkempt General Appearance ED: unkempt, well developed and NAD; Negative for pallor Nutritional Appearance: obese HEENT Reports TM's clear and moist mucous membranes normocephalic and atraumatic Tympanic Membrane ED: Yes TM's clear Eyes PERRL and EOMs intact bilaterally General Eye ED: Negative for pale conjunctiva or scleral icterus Neck no lymphadenopathy, supple and no JVD Resp normal respiratory effort and clear to auscultation bilaterally Cardio regular rate, regular rhythm, S1 normal heart sound, S2 normal heart sound and no murmurs GI non-distended and no masses; Negative for non-tender Auscultation: Negative for normoactive bowel sounds Palpation: soft and tender LLQ and RLQ; Negative for guarding or rigid Back/Spine no CVA tenderness Cervical Spine: Negative for cervical spine tenderness Thoracic Spine / Upper Back: Negative for thoracic spinal tenderness Lumbar Spine / Lower Back: Negative for lumbar spinal tenderness Extremity full ROM General Extremety ED: Negative for edema or tenderness General Extremity: Negative for edema Neuro CN's II-XII intact bilaterally and moves all extremities Sensorium / Orientation: alert, oriented to person, oriented to place and oriented to time Psych thought process normal Appearance: unkempt Mood & Affect: depressed Skin no wounds General Skin Exam: Negative for jaundice or pallor Lesions: no lesions Rashes: no rashes MDM MDM MDM Narrative Medical decision making narrative: This could be due to a ruptured ovarian cyst. This may represent a urinary tract infection. Doubt obstructing ureteral stone. Will obtain CBC to assess white count differential. Electrolyte panel assess renal function and glucose especially since she is diabetic. Lab Data Attestation: I reviewed the patient's lab results. Lab results narrative: CBC is unremarkable. Differential is unremarkable. Basic metabolic panels marked for glucose of 273 with a normal CO2 and anion gap. Urine is consistent with infection. Culture was obtained and patient was treated with Bactrim. She was discharged home. Labs: Laboratory Results - last 24 hr 09/17/21 09/17/21 09/17/21 14:50 14:50 15:25 WBC 9.9 RBC 4.64 Hgb 13.8 Hct 41.2 MCV 88.8 MCH 29.7 MCHC 33.5 RDW Std Deviation 43.7 RDW Coeff of Claude 13.4 Plt Count 177 MPV 10.6 Immature Gran % (Auto) 0.900 Neut % (Auto) 64.6 Lymph % (Auto) 21.7 [place] % (Auto) 9.4 Eos % (Auto) 2.7 Baso % (Auto) 0.7 Absolute Neuts (auto) 6.4 Absolute Lymphs (auto) 2.15 Nucleated RBC % 0 Sodium 137 Potassium 4.1 Chloride 109 H Carbon Dioxide 23.0 Anion Gap 5 BUN 13 Creatinine 0.90 Estim Creat Clear Calc 60.28 Est GFR (MDRD) Af Amer 89 Est GFR (MDRD) Non-Af 74 BUN/Creatinine Ratio 14.4 Glucose 273 H Calcium 9.0 Urine Color Yellow Urine Clarity Clear Urine pH 6.5 Ur Specific [place] 1.015 Urine Protein 30 H Urine Glucose (UA) 1000 H Urine Ketones 50 H Urine Occult Blood 25 H Urine Nitrite Positive H Urine Bilirubin Negative Urine Urobilinogen Normal Ur Leukocyte Esterase 500 H Discharge Plan Triage Chief Complaint: Complaint ED Provider: Dre Deal Dx/Rx/DC Orders Clinical Impression: Complicated urinary tract infection, Hyperglycemia due to type 2 diabetes mellitus Instructions: ED Diabetic Hyperglycemia, ED CYSTITIS Female Adult Prescriptions: New sulfamethoxazole-trimethoprim [sulfamethoxazole-trimethoprim] 1 TABLET tablet 1 tab PO BID Qty: 14 RF: 0 No Action Lantus Solostar U-100 Insulin 100 unit/mL (3 mL) insulin pen 30 unit SC QHS RF: 0 Fiasp FlexTouch U-100 Insulin 100 unit/mL (3 mL) insulin pen 0 - 100 ml subcut PRN PRN (Reason: Hyperglycemia) RF: 0 atorvastatin 80 mg tablet 20 mg PO DAILY RF: 0 lisinopril 5 mg tablet 5 mg PO DAILY Qty: 90 RF: 3 (DME) pen needle, diabetic [BD Ultra-Fine Hope Pen Needle] 32 gauge x 5/32 needle See Rx Instructions .ROUTE .MEDSUPPLY Qty: 400 RF: 6 glimepiride 2 mg tablet 2 mg PO BID Qty: 180 RF: 3 furosemide 20 MG tablet 20 mg PO DAILY@1700 RF: 0 furosemide 40 MG tablet 40 mg PO BREAKFAST RF: 0 oxybutynin chloride 15 mg tablet extended release 24hr 15 mg PO DAILY RF: 0 propranolol 10 MG tablet 10 mg PO BID RF: 0 acetaminophen 500 MG tablet 1,000 mg PO TID PRN PRN (Reason: Pain Or Fever) RF: 0 phenazopyridine 200 MG tablet 200 mg PO BID PRN PRN (Reason: Pain) Qty: 10 RF: 0 trazodone 100 mg tablet 100 mg PO QHS RF: 0 levofloxacin 750 mg tablet 750 mg PO DAILY Qty: 7 RF: 0 amoxicillin-pot clavulanate [amoxicillin-pot clavulanate] 875 MG tablet 1 tab PO Q12H Qty: 20 RF: 0 clindamycin HCl [Cleocin HCl] 300 MG capsule 300 mg PO Q6H 10 Days Qty: 40 RF: 0 prednisone 20 MG tablet 60 mg PO DAILY 6 Days Qty: 18 RF: 0 oxycodone-acetaminophen [Percocet] 5-325 mg tablet 1 tab PO Q6H PRN (Reason: pain) 2 Days Qty: 8 RF: 0 levofloxacin 750 mg tablet 750 mg PO DAILY Qty: 7 RF: 0 ondansetron 4 mg tablet,disintegrating 4 mg PO Q6H PRN (Reason: nausea and vomiting) Qty: 10 RF: 0 Primary Care Provider: Will Shukla Referrals: Will Shukla MD [Primary Care Provider] - 3-5 Days Disposition Disposition: Home, Self Care
[2021-09-17 14:59] LABS: Absolute Lymphocyte Count 2.15 X10^3/uL (0.83-4.51); Absolute Neutrophil Count 6.4 X10^3/uL (2.0-7.7); Basophil# 0.07 X10^3/uL; Basophil% 0.7 % (0-1); Eosinophil# 0.27 X10^3/uL; Eosinophils% 2.7 % (0-5); Hematocrit 41.2 % (37-47); Hemoglobin 13.8 g/dL (12.0-15.0); Lymphocyte # 2.15 X10^3/ul (0.83-4.51); Lymphocyte % 21.7 % (19-41); Mean Corp Hgb Conc 33.5 g/dL (32-36); Mean Corpuscular Hgb 29.7 pg (27.0-32.0); Mean Corpuscular Volume 88.8 fL (81-99); Mean Platelet Vol. 10.6 fl (6.2-12.0); Monocyte# 0.93 X10^3/uL; Monocyte% 9.4 % (0-10); NRBC Flagged by Analyzer 0 % (0-5); Neutrophil # 6.42 X10^3/uL (2.7-7.7); Neutrophil % 64.6 % (47-70); Platelet Count 177 K/mm3 (150-450); RBC Distribution Width CV 13.4 % (11.6-14.6); RBC Distribution Width SD 43.7 fl (35.1-43.9); Red Blood Count 4.64 M/mm3 (4.2-5.4); White Blood Count 9.9 K/mm3 (4.4-11.0)
[2021-09-17 15:11] LABS: Anion Gap 5 (5-15); BUN 13 mg/dL (7-18); BUN/Creat Ratio 14.4 RATIO (10-20); Chloride 109 mmol/L (98-107); EST Glomerular Filtration Rate 74 mL/min (>60); Est Glom Filt Rate - Afr Amer 89 mL/min (>60); Estimated Creatinine Clearance 60.28 ml/min; Glucose 273 mg/dL (74-106); Potassium 4.1 mmol/L (3.5-5.1); Sodium Level 137 mmol/L (136-145)
[2021-09-17] MEDS: Ondansetron 4 MG/2 ML Vial IV (15:17)
[2021-09-17] MEDS: Ketorolac 15 MG/ML Vial IV (15:17)
[2021-09-17] MEDS: 0.9% Normal Saline 1,000 ML 1000 ML IV (15:18)
[2021-09-17 15:32] LABS: Mucous, Urine 0 SEEN /hpf (<or=2+); Red Blood Cells-Urine 0 SEEN /hpf (0-5)
[2021-09-17 15:42] LABS: Color, Urine Yellow (Yellow); Glucose, Dipstick 1000 mg/dl (Normal); Ketone-Dipstick 50 mg/dl (Negative); Leukocyte Esterase-Dipstick 500 /ul (Negative); Nitrite-Dipstick Positive (Negative); Occult Blood-Urine 25 /ul (Negative); Protein-Dipstick 30 mg/dl (Negative); Specific Gravity, Urine 1.015 (1.002-1.030); Urine Bilirubin Dipstick Negative (Negative); Urine Urobilinogen Normal (Normal); Urine pH 6.5 (5.0 - 8.0)
[2021-09-17] MEDS: Morphine 4 MG/ML Syringe IV (15:51)
[2021-09-17 16:45] LABS: Urine Clarity Sl Cldy (Clear)
[2021-09-17 16:46] LABS: Bacteria 2+ /hpf (None Seen); Squamous Epithelial Cells - UA 0-5 SEEN /hpf (5-10); White Blood Cells 10-25 SEEN /hpf (0-5)
[2021-09-17] MEDS: Smz/Tmp Ds Tablet 1 TABLET PO (17:03)
[2021-09-17 17:06] VITALS: PULSE 88; RESP 17
[2021-09-17 17:07] VITALS: PULSE 88; RESP 17; O2SAT 99
== END 2021-09-17 17:07 | disposition home or self-care (01) ==
PROVIDERS: Emergency Provider Emergency Medicine; PCP Family Medicine; Visit Provider Emergency Medicine
DX: N39.0 Urinary tract infection, site not specified (principal); Q05.9 Spina bifida, unspecified; E11.65 Type 2 diabetes mellitus with hyperglycemia; E11.42 Type 2 diabetes mellitus with diabetic polyneuropathy; N23 Unspecified renal colic; E78.5 Hyperlipidemia, unspecified; I10 Essential (primary) hypertension; Z87.440 Personal history of urinary (tract) infections; N31.9 Neuromuscular dysfunction of bladder, unspecified; F32.A Depression, unspecified; F41.9 Anxiety disorder, unspecified; G62.9 Polyneuropathy, unspecified; M48.061 Spinal stenosis, lumbar region without neurogenic claudication
CPT/HCPCS: 80048; 81001; 85025; 87077; 87086; 87088; 87186; 95885; 95910; 99285; J7030; A4216; J2405

== ENCOUNTER → 2021-09-17 | Outpatient (CLI) | payer MEDICARE, MEDICAID, SELFPAY ==
--- NOTE | 2021-09-17 14:27 | NEURO_ITS ---
NCS and/or EMG Patient Report Ordering Doctor: MAYNOR THAO Indication: History of spina bifida and prior lumbar spine surgery. In addition, history of diabetes with prior osteomyelitis and toes amputation. Now presenting with bilateral lower extremity weakness. Symptoms have been present since 2013, but worsening of late. Chronic low back pain. Evaluate for lumbar radiculopathy and/or peripheral polyneuropathy. Of note, the patient has had prior electrodiagnostic testing eight years ago. Findings: Nerve conduction studies were performed left lower extremity. Some sensory responses was obtained on the right for comparison. The left peroneal motor study recording the extensor digitorum brevis showed a borderline amplitude. Supramaximal stimulation could not be obtained at the fibular neck. The left tibial motor study recording the abductor hallucis brevis showed a reduced amplitude, normal distal latency and normal conduction velocity. Left sural sensory response was absent. Left superficial peroneal sensory response absent. Right sural sensory response showed a borderline amplitude for age. Right superficial peroneal sensory response was absent. Right radial sensory response showed a normal amplitude and conduction velocity. Needle EMG of the left lower extremity muscles was performed. The lumbar paraspi nal were not sampled due to the patient's history of prior low back surgery. No active denervation was present in the examined muscles. All motor unit morphology, activation and recruitment patterns were normal. Needle EMG of the right lower extremity was omitted due to the paucity of findings in the left leg. Impression: This is an abnormal, but study. There is electrophysiologic evidence consistent with a length-dependent, axonal, sensorimotor, peripheral neuropathy. There has been significant progression of axonal loss since the prior study completed in July 2013. A superimposed radiculopathy cannot be entirely excluded, given the limitations of the examination (see above). However, no active denervation was seen in the sampled muscles to suggest ongoing motor axon injury. Josue Baldwin D.O. Multi Select Codes Neurology Neurology Interp Codes: 07835-55 EMG, Limited [place] 45112-03 Nrv d test 7-8 studies (interp)
== END | disposition home or self-care (01) ==
LOC: PSN 12:18
PROVIDERS: PCP Family Medicine; Visit Provider Nurse Practitioner
DX: G62.9 Polyneuropathy, unspecified (principal); M48.061 Spinal stenosis, lumbar region without neurogenic claudication
CPT/HCPCS: 95885; 95910

== ENCOUNTER → 2021-10-11 | Outpatient (REF) | payer SELFPAY ==
[2021-10-11 08:45] LABS: Absolute Neutrophil Count 7.6 X10^3/uL (2.0-7.7); Basophil# 0.09 X10^3/uL; Basophil% 0.7 % (0-1); Eosinophil# 0.42 X10^3/uL; Eosinophils% 3.1 % (0-5); Hematocrit 37.8 % (37-47); Hemoglobin 12.1 g/dL (12.0-15.0); Lymphocyte % 27.3 % (19-41); Mean Corpuscular Hgb 29.6 pg (27.0-32.0); Mean Corpuscular Volume 92.4 fL (81-99); Mean Platelet Vol. 11.2 fl (6.2-12.0); Monocyte% 11.1 % (0-10); NRBC Flagged by Analyzer 0 % (0-5); Neutrophil # 7.63 X10^3/uL (2.7-7.7); Neutrophil % 56.1 % (47-70); Platelet Count 265 K/mm3 (150-450); RBC Distribution Width CV 13.3 % (11.6-14.6); RBC Distribution Width SD 45.3 fl (35.1-43.9); Red Blood Count 4.09 M/mm3 (4.2-5.4); White Blood Count 13.6 K/mm3 (4.4-11.0)
[2021-10-11 09:00] LABS: Anion Gap 9 (5-15); BUN 13 mg/dL (7-18); Calcium,Total 9.4 mg/dL (8.5-10.1); Chloride 105 mmol/L (98-107); Creatinine, Serum 0.81 mg/dL (0.55-1.02); EST Glomerular Filtration Rate 83 mL/min (>60); Est Glom Filt Rate - Afr Amer 101 mL/min (>60); Glucose 97 mg/dL (74-106); Potassium 3.7 mmol/L (3.5-5.1); Sodium Level 139 mmol/L (136-145)
[2021-10-11 09:15] LABS: Hemoglobin A1c 9.2 % (3.8-5.6)
== END | disposition home or self-care (01) ==
LOC: OLS.SW1020 05:00
PROVIDERS: PCP Family Medicine; Visit Provider Family Medicine
DX: I48.91 Unspecified atrial fibrillation (principal); E11.9 Type 2 diabetes mellitus without complications; R68.89 Other general symptoms and signs
CPT/HCPCS: 36415; 80048; 83036; 85025

== ENCOUNTER → 2021-10-18 | Outpatient (REF) | payer SELFPAY ==
[2021-10-18 08:45] LABS: Absolute Lymphocyte Count 2.84 X10^3/uL (0.83-4.51); Absolute Neutrophil Count 4.8 X10^3/uL (2.0-7.7); Basophil# 0.07 X10^3/uL; Basophil% 0.8 % (0-1); Eosinophil# 0.18 X10^3/uL; Hematocrit 35.7 % (37-47); Hemoglobin 11.6 g/dL (12.0-15.0); Lymphocyte # 2.84 X10^3/ul (0.83-4.51); Lymphocyte % 31.7 % (19-41); Mean Corp Hgb Conc 32.5 g/dL (32-36); Mean Corpuscular Hgb 29.7 pg (27.0-32.0); Mean Corpuscular Volume 91.3 fL (81-99); Mean Platelet Vol. 11.3 fl (6.2-12.0); Monocyte% 11.2 % (0-10); NRBC Flagged by Analyzer 0 % (0-5); Neutrophil # 4.82 X10^3/uL (2.7-7.7); Neutrophil % 53.9 % (47-70); Platelet Count 278 K/mm3 (150-450); RBC Distribution Width CV 13.3 % (11.6-14.6); RBC Distribution Width SD 44.2 fl (35.1-43.9); Red Blood Count 3.91 M/mm3 (4.2-5.4)
[2021-10-18 08:54] LABS: Anion Gap 5 (5-15); BUN 18 mg/dL (7-18); BUN/Creat Ratio 18.8 RATIO (10-20); Calcium,Total 9.4 mg/dL (8.5-10.1); Chloride 108 mmol/L (98-107); Creatinine, Serum 0.96 mg/dL (0.55-1.02); EST Glomerular Filtration Rate 69 mL/min (>60); Est Glom Filt Rate - Afr Amer 83 mL/min (>60); Glucose 87 mg/dL (74-106); Potassium 3.7 mmol/L (3.5-5.1); Sodium Level 139 mmol/L (136-145)
== END | disposition home or self-care (01) ==
LOC: OLS.SW1020 05:00
PROVIDERS: PCP Family Medicine; Visit Provider Family Medicine
DX: R68.89 Other general symptoms and signs (principal); Z13.228 Encounter for screening for other metabolic disorders
CPT/HCPCS: 36415; 80048; 85025

== ENCOUNTER → 2021-10-26 | Outpatient (REF) | payer SELFPAY ==
[2021-10-26 08:55] LABS: Absolute Lymphocyte Count 3.57 X10^3/uL (0.83-4.51); Basophil# 0.05 X10^3/uL; Basophil% 0.6 % (0-1); Eosinophil# 0.28 X10^3/uL; Eosinophils% 3.1 % (0-5); Hematocrit 35.9 % (37-47); Hemoglobin 11.5 g/dL (12.0-15.0); Lymphocyte # 3.57 X10^3/ul (0.83-4.51); Lymphocyte % 39.5 % (19-41); Mean Corpuscular Hgb 29.6 pg (27.0-32.0); Mean Corpuscular Volume 92.5 fL (81-99); Mean Platelet Vol. 11.2 fl (6.2-12.0); Monocyte# 1.16 X10^3/uL; Monocyte% 12.8 % (0-10); NRBC Flagged by Analyzer 0 % (0-5); Neutrophil # 3.95 X10^3/uL (2.7-7.7); Neutrophil % 43.7 % (47-70); Platelet Count 212 K/mm3 (150-450); RBC Distribution Width CV 13.2 % (11.6-14.6); RBC Distribution Width SD 44.8 fl (35.1-43.9); Red Blood Count 3.88 M/mm3 (4.2-5.4)
[2021-10-26 09:22] LABS: Anion Gap 8 (5-15); BUN 20 mg/dL (7-18); Calcium,Total 8.9 mg/dL (8.5-10.1); Chloride 103 mmol/L (98-107); Creatinine, Serum 1.25 mg/dL (0.55-1.02); EST Glomerular Filtration Rate 51 mL/min (>60); Est Glom Filt Rate - Afr Amer 61 mL/min (>60); Glucose 69 mg/dL (74-106); Potassium 3.4 mmol/L (3.5-5.1); Sodium Level 138 mmol/L (136-145)
== END | disposition home or self-care (01) ==
LOC: OLS.SW1020 04:00
PROVIDERS: PCP Family Medicine; Referring Provider Family Medicine; Visit Provider Family Medicine
DX: R68.89 Other general symptoms and signs (principal); Z13.228 Encounter for screening for other metabolic disorders
CPT/HCPCS: 36415; 80048; 85025

== ENCOUNTER 2021-11-04 23:45 | Emergency (ER) | payer MEDICARE, MEDICAID, SELFPAY ==
[2021-11-04 23:46] VITALS: BP 130/84; PULSE 88; RESP 18; TEMP 37; O2SAT 99; BMI 39.2
--- NOTE | 2021-11-05 00:33 | CT_ITS ---
We are attempting to reach an attending provider to discuss findings. An addendum with communication details will be sent when the communication is complete. STUDY: CT ABDOMEN AND PELVIS WITHOUT CONTRAST REASON FOR EXAM: Female, 40 years old. flank pain RADIATION DOSAGE (If Supplied By Facility): CTDIvol = ( 13.56 ) mGy, DLP = ( 708.04 ) mGycm TECHNIQUE: Transaxial images were obtained from the dome of the diaphragm to the symphysis pubis without oral contrast, and without intravenous contrast. Sagittal and coronal images were reconstructed. Individualized dose optimization techniques were used for this CT. COMPARISON: August 20, 2021. FINDINGS: Tiny punctate calcified nodule right lower lobe. The visualized portions of the heart are within normal limits. Normal liver. Gallbladder not visualized compatible with cholecystectomy. Normal spleen. Normal pancreas. Normal bilateral adrenal glands. Right renal cortical scarring. 4 mm nonobstructing inferior pole right renal calculus. No hydronephrosis. Normal left kidney. Normal visualized stomach. Normal small intestine. Minimal colonic diverticulosis. The appendix is visualized and appears normal. Normal abdominal aorta. Normal inferior vena cava. Normal retroperitoneum. Suprapubic catheter decompresses the bladder. Uterus contains a fibroid, left parasagittal, noted previously. No adnexal masses seen. There is now an upper abdominal ventral hernia slightly left parasagittal measuring 5.2 x 4.6 cm and containing a loop of colon which may demonstrate wall thickening, coronal image 26 and axial image 75. Upper abdominal ventral hernia mesh. Part of the ventral surgical mesh is present along the anterior margin of the hernia. There is surgical clips left hemipelvis. Periumbilical ventral hernia mesh. Residual umbilical hernia containing fat measuring 3.2 x 1.9 cm unchanged. Normal osseous structures. CT/Abdomen/Pelvis without Cont IMPRESSION: New upper abdominal ventral hernia left parasagittal containing a loop of bowel with possible wall thickening which could represent inflammation or infection. No bowel obstruction. Consider surgical consult. Nonobstructing right renal calculus unchanged. Right renal scarring. Suprapubic catheter decompressing the bladder unchanged. Residual umbilical hernia containing fat unchanged. Old granulomatous disease. Minimal colonic diverticulosis. Electronically Signed: Demetrius Britt MD at 2:25 EDT Reading Location ID and State: [id number] / , Service support ,
[2021-11-05] MEDS: Morphine 4 MG/ML Syringe IV (00:44)
[2021-11-05] MEDS: Ondansetron 4 MG/2 ML Vial IV (00:44)
[2021-11-05] MEDS: 0.9% Normal Saline 1,000 ML 999 ML IV (00:44)
[2021-11-05 00:56] LABS: Absolute Lymphocyte Count 2.79 X10^3/uL (0.83-4.51); Absolute Neutrophil Count 5.4 X10^3/uL (2.0-7.7); Basophil# 0.06 X10^3/uL; Basophil% 0.6 % (0-1); Eosinophils% 6.8 % (0-5); Hematocrit 35.8 % (37-47); Lymphocyte # 2.79 X10^3/ul (0.83-4.51); Lymphocyte % 27.3 % (19-41); Mean Corp Hgb Conc 33.5 g/dL (32-36); Mean Corpuscular Hgb 30.1 pg (27.0-32.0); Mean Corpuscular Volume 89.7 fL (81-99); Mean Platelet Vol. 11.4 fl (6.2-12.0); Monocyte# 1.21 X10^3/uL; Monocyte% 11.8 % (0-10); NRBC Flagged by Analyzer 0 % (0-5); Neutrophil # 5.42 X10^3/uL (2.7-7.7); Neutrophil % 53.1 % (47-70); Platelet Count 212 K/mm3 (150-450); RBC Distribution Width CV 13.1 % (11.6-14.6); Red Blood Count 3.99 M/mm3 (4.2-5.4); White Blood Count 10.2 K/mm3 (4.4-11.0)
[2021-11-05 01:10] LABS: Anion Gap 5 (5-15); BUN 8 mg/dL (7-18); BUN/Creat Ratio 8.3 RATIO (10-20); Calcium,Total 9.3 mg/dL (8.5-10.1); Chloride 109 mmol/L (98-107); Creatinine, Serum 0.97 mg/dL (0.55-1.02); EST Glomerular Filtration Rate 68 mL/min (>60); Est Glom Filt Rate - Afr Amer 82 mL/min (>60); Estimated Creatinine Clearance 58.76 ml/min; Glucose 172 mg/dL (74-106); Potassium 3.6 mmol/L (3.5-5.1); Sodium Level 140 mmol/L (136-145)
[2021-11-05 01:20] LABS: Mucous, Urine 0 SEEN /hpf (<or=2+); Red Blood Cells-Urine 0 SEEN /hpf (0-5); Squamous Epithelial Cells - UA 0 SEEN /hpf (5-10)
[2021-11-05 01:21] LABS: Color, Urine Straw (Yellow); Glucose, Dipstick Normal (Normal); Ketone-Dipstick Negative (Negative); Leukocyte Esterase-Dipstick 500 /ul (Negative); Nitrite-Dipstick Negative (Negative); Occult Blood-Urine 25 /ul (Negative); Protein-Dipstick Negative (Negative); Urine Bilirubin Dipstick Negative (Negative); Urine Clarity Sl. Cloudy (Clear); Urine Urobilinogen Normal (Normal); Urine pH 6.5 (5.0 - 8.0)
[2021-11-05 01:30] LABS: Bacteria 2+ /hpf (None Seen); Internal QC Validated? YES +Cl - CLEAR BKGD; Pregnancy, Urine Negative Negative; White Blood Cells 5-10 SEEN /hpf (0-5)
--- NOTE | 2021-11-05 03:07 | EDS_ITS ---
HPI History of Present Illness Chief Complaint: Flank Pain Narrative Narrative: Patient is a 40-year-old female with significant past medical history which includes a suprapubic catheter and colostomy bag. Patient states that she was sitting around this evening around 11 PM when she felt sharp pain in the suprapubic region radiating towards the right flank. She denies any recent trauma or excessive activity and denies any fevers or chills. She states that her colostomy bag emptied just prior to arrival. She states she does have a history of kidney stones and has concern for this based on her sudden onset of pain in the right flank and therefore comes in for evaluation [facility] Medical History (Updated 11/05/21 @ 03:[address] Alexander Hooks, ) Anxiety and depression Arthritis Manley's palsy Cellulitis of left lower extremity Chronic back pain Chronic nausea Colostomy in place Constipation Delayed wound healing Diabetes mellitus, type II Diabetic polyneuropathy Diabetic ulcer of left heel with fat layer exposed DJD (degenerative joint disease) of thoracic spine Dysthymic disorder Essential hypertension Hematochezia History of kidney stones History of migraine Hydronephrosis of right kidney Hyperglycemia Hyperlipidemia Infection of bladder catheter Insomnia Lipomeningocele Lower extremity edema Morbid obesity with BMI of 40.0-44.9, adult Neurogenic bladder Neurogenic bowel Non-compliance Non-smoker Normochromic normocytic anemia Panic attacks PSVT (paroxysmal supraventricular tachycardia) Sepsis Sepsis Spina bifida aperta of lumbar spine Thyroid cyst Type 2 diabetes mellitus with diabetic polyneuropathy Ulcer of left heel and midfoot with fat layer exposed Uninodular goiter Urinary tract infection UTI (urinary tract infection) UTI (urinary tract infection) Weakness Home Medications furosemide 20 mg PO DAILY@1700 08/28/18 [History Last Taken 12/22/20] furosemide 40 mg PO BREAKFAST 04/05/19 [History Last Taken 12/22/20] insulin glargine 100 unit/mL (3 mL) subcutaneous pen 33 unit SC QHS 11/01/19 [History Last Taken 12/21/20] oxybutynin chloride 15 mg tablet,extended release 24 hr 15 mg PO DAILY 11/12/19 [History Last Taken 12/22/20] propranolol 10 mg PO BID 01/13/20 [History Last Taken 12/22/20] acetaminophen 1,000 mg PO TID PRN PRN 02/12/20 [History Last Taken 09/24/20 19:24] phenazopyridine 200 mg PO BID PRN PRN #10 tab 07/13/20 [Rx Last Taken 12/19/20] trazodone 100 mg PO QHS 01/19/21 [History Last Taken Unknown] atorvastatin 80 mg tablet 80 mg PO DAILY tab 01/29/21 [History Last Taken Unknown] insulin aspart (niacinamide)(U-100) 100 unit/mL(3 mL) subcutaneous pen 0 - 100 ml SUBCUT PRN PRN 01/29/21 [History Last Taken Unknown] lisinopril 5 mg tablet 5 mg PO DAILY #90 tab 01/29/21 [Rx Last Taken Unknown] pen needle, diabetic 32 gauge x #400 ea 03/05/21 [Rx Last Taken Unknown] glimepiride 2 mg tablet 2 mg PO BID #180 tab 03/31/21 [Rx Last Taken Unknown] ondansetron 4 mg PO Q6H PRN #10 tab 08/20/21 [Rx Last Taken Unknown] Allergy/AdvReac Type Severity Reaction Status Date / Time ce[facility]ri[facility]one [[facility] Allergy Hives Verified 11/04/21 23:49 mushroom Allergy Anaphylaxis Verified 11/04/21 23:49 peanut Allergy Anaphylaxis Verified 11/04/21 23:49 fentanyl AdvReac Low blood Verified 11/04/21 23:59 pressure Gadolinium-MRI Contrast AdvReac Vomiting Verified 11/04/21 23:49 Medium Latex, Natural Rubber AdvReac Rash Verified 11/04/21 23:49 Family History Mother CVA (cerebral vascular accident) Thyroid disorder Diabetes Hypertension Heart disease Hyperlipidemia Myocardial infarction, Onset Age: 54 mother had diabetes Father Cancer skin Grandmother Cancer liver Other Arthritis Skin cancer Surgical History history insertion suprapubic catheter History of cholecystectomy History of dilation and curettage History of spinal surgery Hx of foot surgery Hx of ventral hernia repair S/P thyroid biopsy (~11/06/19) Status post gastric surgery Social History household members: significant other Smoking Status: Never smoker alcohol intake: current substance use type: does not use ROS ROS ED Constitutional Constitutional ED: Denies chills or fever(s) ENT ENT ED: Denies sore throat Cardiovascular Cardiovascular: Denies chest pain Respiratory/Chest Respiratory/Chest: Denies cough or dyspnea Gastrointestinal Gastrointestinal: Reports abdominal pain; Denies constipation, diarrhea, nausea or vomiting Genitourinary Genitourinary ED: Denies dysuria Musculoskeletal Musculoskeletal: Reports back pain; Denies myalgias Integumentary Denies rash Neurologic Neurologic: Denies headache(s) Hematologic/Lymphatic Hematologic/Lymphatic: Denies easy bleeding or easy bruising EXAM Physical Exam Const Vital Signs: 11/04/21 23:46 Temperature 98.6 F Temperature Source Temporal Pulse Rate 88 Respiratory Rate 18 Blood Pressure 130/84 H Blood Pressure Mean 99 Pulse Ox 99 Oxygen Delivery Method Room Air Positive well nourished, well developed and obese General Appearance ED: well developed Nutritional Appearance: obese Eyes PERRL and EOMs intact bilaterally Neck supple Resp normal respiratory effort and clear to auscultation bilaterally Cardio regular rate and regular rhythm Rate: other Other Details: Radial pulses are +2-4 bilaterally are equal and symmetric GI non-distended GI Narrative: Abdomen is soft and nondistended with normoactive bowel sound. Patient has a colostomy in place in the left sided mid abdomen. There is no surrounding secondary soft tissue changes to suggest infection. There is stool present within the colostomy bag. There is a suprapubic catheter in place as well. It is draining urine indicating it is in proper placement. There is no surrounding soft tissue changes around the insertion site to suggest infection. There is mild pain on palpation in the suprapubic region. Otherwise no voluntary guarding or rigidity. Auscultation: normoactive bowel sounds Palpation: soft Back/Spine Back/Spine Narrative: Positive right CVA pain Extremity normal to inspection Neuro oriented x3 and CN's II-XII intact bilaterally Sensorium / Orientation: alert Motor Exam: strength 5/5 throughout Psych mental status grossly normal Skin no rashes or lesions noted MDM MDM MDM Narrative Medical decision making narrative: Patient presented to the ER afebrile. She reported sudden onset pain along the suprapubic to right flank region and this is concerning for kidney stone. The suprapubic catheter is draining urine which indicates it is in the proper position and her colostomy bag has stool indicating it is functioning as well without obvious obstructive. Based on her complex history I did elect to check basic labs and a noncontrast CT. labs revealed no clinically significant finding. Urine does show +2 bacteria but patient does have colonization based on her chronic indwelling catheter. Therefore without elevated white count fever or acute kidney injury do not feel there is need to start antibiotics at this time. Patient will have urine sent for culture. The CT scan showed a stone within the right kidney but this has been unchanged from previous evaluation. Otherwise there is no clinically significant changes. On reevaluation she has had improvement of her pain and is resting comfortably. Therefore do not feel there is need for further work-up and patient will be safe with discharge home. Lab Data Attestation: I reviewed the patient's lab results. Labs: Laboratory Results - last 24 hr 11/05/21 11/05/21 11/05/21 00:17 00:17 01:13 WBC 10.2 RBC 3.99 L Hgb 12.0 Hct 35.8 L MCV 89.7 MCH 30.1 MCHC 33.5 RDW Std Deviation 43.0 RDW Coeff of Claude 13.1 Plt Count 212 MPV 11.4 Immature Gran % (Auto) 0.400 Neut % (Auto) 53.1 Lymph % (Auto) 27.3 [place] % (Auto) 11.8 H Eos % (Auto) 6.8 H Baso % (Auto) 0.6 Absolute Neuts (auto) 5.4 Absolute Lymphs (auto) 2.79 Nucleated RBC % 0 Sodium 140 Potassium 3.6 Chloride 109 H Carbon Dioxide 26.0 Anion Gap 5 BUN 8 Creatinine 0.97 Estim Creat Clear Calc 58.76 Est GFR (MDRD) Af Amer 82 Est GFR (MDRD) Non-Af 68 BUN/Creatinine Ratio 8.3 L Glucose 172 H Calcium 9.3 Urine Color Straw Urine Clarity Sl. Cloudy Urine pH 6.5 Ur Specific [place] 1.010 Urine Protein Negative Urine Glucose (UA) Normal Urine Ketones Negative Urine Occult Blood 25 H Urine Nitrite Negative Urine Bilirubin Negative Urine Urobilinogen Normal Ur Leukocyte Esterase 500 H Urine RBC 0 SEEN Urine WBC 5-10 SEEN Ur Squamous Epith Cells 0 SEEN Urine Bacteria 2+ Urine Mucus 0 SEEN Urine Test Negative Radiography Diagnostic Testing: Clinical Impression(s) from Imaging Studies Abdomen/Pelvis CT 11/05/21 00:33 IMPRESSION: New upper abdominal ventral hernia left parasagittal containing a loop of bowel with possible wall thickening which could represent inflammation or infection. No bowel obstruction. Consider surgical consult. Nonobstructing right renal calculus unchanged. Right renal scarring. Suprapubic catheter decompressing the bladder unchanged. Residual umbilical hernia containing fat unchanged. Old granulomatous disease. Minimal colonic diverticulosis. Electronically Signed: Demetrius Britt MD at 2:25 EDT Reading Location ID and State: [place] , Service support , ADDENDUM: 11/05/21 0236 IMPRESSION: New upper abdominal ventral hernia left parasagittal containing a loop of bowel with possible wall thickening which could represent inflammation or infection. No bowel obstruction. Consider surgical consult. Nonobstructing right renal calculus unchanged. Right renal scarring. Suprapubic catheter decompressing the bladder unchanged. Residual umbilical hernia containing fat unchanged. Old granulomatous disease. Minimal colonic diverticulosis. N.B. : The above Results were Read Back by Demetrius Britt MD to Alexander Hooks MD, and understanding confirmed on 11/05/2021 02:29:34 (ET). Electronically Signed: Demetrius Britt MD at 2:25 EDT Reading Location ID and State: [place] , Service support , ADDENDUM: 11/05/21 0240 IMPRESSION: No acute findings in the abdomen or pelvis. Small nonobstructing right renal calculus unchanged. New left upper abdominal colostomy. Electronically Signed: Demetrius Britt MD at 2:33 EDT Reading Location ID and State: [place] / , Service support , N.B. : The above Results were Read Back by Demetrius Britt MD to Alexander Hooks MD, and understanding confirmed on 11/05/2021 02:29:34 (ET). Discharge Plan Triage Chief Complaint: Flank Pain ED Provider: Alexander Hooks Dx/Rx/DC Orders Clinical Impression: Right flank pain, Diabetes mellitus, type II Instructions: ED Flank Pain, Uncertain Cause Prescriptions: No Action Lantus Solostar U-100 Insulin 100 unit/mL (3 mL) insulin pen 33 unit SC QHS RF: 0 Fiasp FlexTouch U-100 Insulin 100 unit/mL (3 mL) insulin pen 0 - 100 ml subcut PRN PRN (Reason: Hyperglycemia) RF: 0 atorvastatin 80 mg tablet 80 mg PO DAILY RF: 0 lisinopril 5 mg tablet 5 mg PO DAILY Qty: 90 RF: 3 (DME) pen needle, diabetic [BD Ultra-Fine Hope Pen Needle] 32 gauge x 5/32 needle See Rx Instructions .ROUTE .MEDSUPPLY Qty: 400 RF: 6 glimepiride 2 mg tablet 2 mg PO BID Qty: 180 RF: 3 furosemide 20 MG tablet 20 mg PO DAILY@1700 RF: 0 furosemide 40 MG tablet 40 mg PO BREAKFAST RF: 0 oxybutynin chloride 15 mg tablet extended release 24hr 15 mg PO DAILY RF: 0 propranolol 10 MG tablet 10 mg PO BID RF: 0 acetaminophen 500 MG tablet 1,000 mg PO TID PRN PRN (Reason: Pain Or Fever) RF: 0 phenazopyridine 200 MG tablet 200 mg PO BID PRN PRN (Reason: Pain) Qty: 10 RF: 0 trazodone 100 mg tablet 100 mg PO QHS RF: 0 ondansetron 4 mg tablet,disintegrating 4 mg PO Q6H PRN (Reason: nausea and vomiting) Qty: 10 RF: 0 Primary Care Provider: Will Shukla Referrals: Will Shukla MD [Primary Care Provider] - Disposition Disposition: Home, Self Care
[2021-11-05] MEDS: oxyCODONE 5 MG Tablet 10 MG PO (03:22)
[2021-11-05 03:26] VITALS: BP 112/73; PULSE 81; RESP 16; O2SAT 100
== END 2021-11-05 03:27 | disposition home or self-care (01) ==
PROVIDERS: Emergency Provider Emergency Medicine; PCP Family Medicine; Visit Provider Emergency Medicine
DX: R10.9 Unspecified abdominal pain (principal); Z93.3 Colostomy status; E11.9 Type 2 diabetes mellitus without complications; I10 Essential (primary) hypertension; E78.5 Hyperlipidemia, unspecified; M54.9 Dorsalgia, unspecified; G51.0 Bell's palsy; N20.0 Calculus of kidney
CPT/HCPCS: 74176; 80048; 81001; 81025; 85025; 87077; 87086; 87088; 87186; 99284; J7030; J2405

== ENCOUNTER 2021-11-14 23:06 | Emergency (ER) | payer MEDICARE, MEDICAID, SELFPAY ==
[2021-11-14 23:08] VITALS: BP 123/80; PULSE 91; RESP 16; TEMP 35.1; O2SAT 99; BMI 39.2
--- NOTE | 2021-11-14 23:58 | EDS_ITS ---
HPI History of Present Illness Chief Complaint: Complaint Informant: patient Narrative Narrative: Patient is a 41-year-old female with complex medical history including spina bifida with suprapubic Morales catheter, diabetes myelitis with history of diabetic foot wounds and prior partial foot amputation, as well as recent placement of colostomy presenting with right flank pain and urinary symptoms. Patient had her suprapubic Morales catheter placed about a week ago with Dr. Box. She follows with Dr. Farhat Sears at [facility] for any other urologic issues. She notes for the past 3 to 4 days she has been having change in her urine output, mild suprapubic and right flank discomfort and she has been try to be proactive by keeping her self hydrated. She states she is had decreased urine output despite drinking 10-12 bottles of water today and her urine is very dark. She also notes with a past few days her blood sugars are running in the 300s however today they were below 150. This evening 1 hour prior to arrival she noticed a wound on the base of her left foot is concerned about a new diabetic foot wound. She has had some associated nausea but no vomiting. She states has had normal output from her ostomy and denies any other abdominal pain. Patient's property management intern is Dr. Gomez but she notes she has not seen him recently. Denies any fever but does report chills and generalized weakness. No other acute complaints at this time. Chart review shows the patient was seen in our ER 10 days ago with sudden onset of sharp suprapubic pain rating to her right flank. At that time she had a CT flank study which was negative for acute obstructive kidney stone however it did show a stable nonobstructing right renal calculus. Urinalysis at that time showed 500 with esterase with 5-10 white blood cells and 2+ bacteria.Culture grew out staph epidermidis with greater than 100,000 CFU's per mL and 11,000- 25,000 CFU's per mL of Pseudomonas putida. [facility] Medical History Anxiety and depression Arthritis Manley's palsy Cellulitis of left lower extremity Chronic back pain Chronic nausea Colostomy in place Constipation Delayed wound healing Diabetes mellitus, type II Diabetic polyneuropathy Diabetic ulcer of left heel with fat layer exposed DJD (degenerative joint disease) of thoracic spine Dysthymic disorder Essential hypertension Hematochezia History of kidney stones History of migraine Hydronephrosis of right kidney Hyperglycemia Hyperlipidemia Infection of bladder catheter Insomnia Lipomeningocele Lower extremity edema Morbid obesity with BMI of 40.0-44.9, adult Neurogenic bladder Neurogenic bowel Non-compliance Non-smoker Normochromic normocytic anemia Panic attacks PSVT (paroxysmal supraventricular tachycardia) Sepsis Sepsis Spina bifida aperta of lumbar spine Thyroid cyst Type 2 diabetes mellitus with diabetic polyneuropathy Ulcer of left heel and midfoot with fat layer exposed Uninodular goiter Urinary tract infection UTI (urinary tract infection) UTI (urinary tract infection) Weakness Home Medications furosemide 20 mg tablet 20 mg PO DAILY@1700 fluid 08/28/18 [History Last Taken 12/22/20] furosemide 40 mg tablet 40 mg PO BREAKFAST fluid 04/05/19 [History Last Taken 12/22/20] insulin glargine 100 unit/mL (3 mL) subcutaneous pen (Lantus Solostar U-100 Insulin) 33 unit subcut QHS dm 11/01/19 [History Last Taken 12/21/20] oxybutynin chloride 15 mg tablet,extended release 24 hr 15 mg PO DAILY bladder 11/12/19 [History Last Taken 12/22/20] propranolol 10 mg tablet 10 mg PO BID heart 01/13/20 [History Last Taken 12/22/20] acetaminophen 500 mg tablet 1,000 mg PO TID PRN PRN Pain Or Fever 02/12/20 [History Last Taken 09/24/20 19:24] phenazopyridine 200 mg tablet 200 mg PO BID PRN PRN Pain #10 tabs 07/13/20 [Rx Last Taken 12/19/20] trazodone 100 mg tablet 100 mg PO QHS 01/19/21 [History Last Taken Unknown] atorvastatin 80 mg tablet 80 mg PO DAILY 01/29/21 [History Last Taken Unknown] insulin aspart (niacinamide)(U-100) 100 unit/mL(3 mL) subcutaneous pen 0 - 100 ml subcut PRN PRN Hyperglycemia 01/29/21 [History Last Taken Unknown] lisinopril 5 mg tablet 5 mg PO DAILY #90 tabs 01/29/21 [Rx Last Taken Unknown] pen needle, diabetic 32 gauge x /32 (BD Ultra-Fine Hope Pen Needle) #400 ea 03/05/21 [Rx Last Taken Unknown] glimepiride 2 mg tablet 2 mg PO BID #180 tabs 03/31/21 [Rx Last Taken Unknown] ondansetron 4 mg disintegrating tablet 4 mg PO Q6H PRN nausea and vomiting #10 tabs 08/20/21 [Rx Last Taken Unknown] doxycycline monohydrate 100 mg tablet 100 mg PO BID 10 days #20 tabs 11/15/21 [Rx Last Taken Unknown] ondansetron 4 mg disintegrating tablet 4 mg PO Q6H PRN nausea and vomiting #10 tabs 11/15/21 [Rx Last Taken Unknown] Allergy/AdvReac Type Severity Reaction Status Date / Time ceftriaxone [From Rocephin] Allergy Hives Verified 11/04/21 23:49 mushroom Allergy Anaphylaxis Verified 11/04/21 23:49 peanut Allergy Anaphylaxis Verified 11/04/21 23:49 fentanyl AdvReac Low blood Verified 11/04/21 23:59 pressure Gadolinium-MRI Contrast AdvReac Vomiting Verified 11/04/21 23:49 Medium Latex, Natural Rubber AdvReac Rash Verified 11/04/21 23:49 Family History Mother CVA (cerebral vascular accident) Thyroid disorder Diabetes Hypertension Heart disease Hyperlipidemia Myocardial infarction, Onset Age: 54 mother had diabetes Father Cancer skin Grandmother Cancer liver Other Arthritis Skin cancer Surgical History history insertion suprapubic catheter History of cholecystectomy History of dilation and curettage History of spinal surgery Hx of foot surgery Hx of ventral hernia repair S/P thyroid biopsy (~11/06/19) Status post gastric surgery Social History household members: significant other Smoking Status: Never smoker alcohol intake: current substance use type: does not use ROS ROS ED Constitutional Constitutional ED: Reports chills; Denies fever(s) or sweats Eyes Eyes: Denies change in vision ENT ENT ED: Denies rhinorrhea or sore throat Cardiovascular Cardiovascular: Denies chest pain Respiratory/Chest Respiratory/Chest: Denies cough Gastrointestinal Gastrointestinal: Reports abdominal pain and nausea; Denies constipation, diarrhea or vomiting Genitourinary Genitourinary ED: Reports other Details: Decreased urine output, suprapubic Morales catheter Musculoskeletal Musculoskeletal: Reports back pain; Denies arthralgias Integumentary Reports other Details: Wound to the base of the left foot Neurologic Neurologic: Reports weakness; Denies headache(s) or paresthesias Psychiatric Psychiatric: Denies anxiety EXAM Physical Exam Const Vital Signs: 11/14/21 23:08 11/15/21 00:21 Temperature 95.1 F L Temperature Source Temporal Pulse Rate 91 Respiratory Rate 16 Respiratory Effort Normal Non-Labored Respiratory Pattern Normal Blood Pressure 123/80 H Blood Pressure Mean 94 Pulse Ox 99 Oxygen Delivery Method Room Air Positive well nourished and well developed General Appearance ED: well developed and NAD HEENT Reports moist mucous membranes Eyes PERRL and EOMs intact bilaterally Neck supple and no JVD Chest Wall inspection of chest normal Resp normal respiratory effort and clear to auscultation bilaterally Cardio regular rate, regular rhythm and no murmurs GI non-tender and non-distended GI Narrative: Colostomy in the right upper quadrant. No surrounding erythema or tenderness appreciated. Bag is currently empty however it was changes prior to arrival. Suprapubic Morales catheter in place. No surrounding drainage, redness or tenderness. Auscultation: normoactive bowel sounds Palpation: soft; Negative for tender Back/Spine General Back: CVA tenderness right Extremity Extremity Narrative: Prior toe amputations. No acute deformity or bony tenderness appreciated. General Extremety ED: Negative for edema or tenderness General Extremity: Negative for edema Neuro Sensorium / Orientation: alert Motor Exam: Negative for general weakness Psych mental status grossly normal Skin Skin Narrative: 2 cm circumferential partial-thickness ulcerated wound on the ball of the left foot. No surrounding erythema. No associated fluctuance or drainage. No lymphangitic streaking. Rashes: No rashes noted MDM MDM MDM Narrative Medical decision making narrative: Patient is evaluated for multiple complaints including new wound on the base of her left foot as well as concern for urinary tract infection and right flank pain. She also notes has had decreased urine output and her blood sugars been elevated. Patient's vital signs are normal. Her white blood cell count is normal. Her lactate is normal at 1.4. Kidney function is at her baseline and normal. Her glucose is elevated at 238 however her anion gap is normal as well as her sodium and potassium. I do not think she is in DKA or HHNK. Her CRP and ESR are only minimally elevated. X-ray of the left foot interpreted by myself as well as radiology shows prior amputation but no findings consistent with acute osteomyelitis or other new fracture. Urinalysis is significantly worsened compared to 10 days ago and now has positive nitrates, greater than 100 white blood cells and 4+ bacteria. She has a mild tenderness at her right CVA on exam. Her pain does not appear to be consistent with renal colic and I do not think this is an infected stone. She had a CT 10 days ago for similar symptoms which did not show any obstructive uropathy. Patient is given IV fluids, Zofran and Toradol with improvement of symptoms. On repeat evaluation she is resting comfortably. Prior culture from 10 days ago was reviewed which did show greater than 100,000 CFU's of Staph epidermidis that is sensitive to doxycycline Macrobid, tetracycline and an IV antibiotics. Patient has a new urine culture sent and she will be started on doxycycline which also cover for skin infection. She is agreeable this plan of care. She is encouraged to follow-up with her property management intern for her new foot wound as well as her urologist. She is counseled on return precautions. Lab Data Attestation: I reviewed the patient's lab results. Labs: Laboratory Results - last 24 hr 11/15/21 11/15/21 11/15/21 00:06 00:06 00:06 WBC 9.4 RBC 4.00 L Hgb 11.8 L Hct 35.7 L MCV 89.3 MCH 29.5 MCHC 33.1 RDW Std Deviation 42.5 RDW Coeff of Claude 13.0 Plt Count 246 MPV 10.6 Immature Gran % (Auto) 0.400 Neut % (Auto) 57.7 Lymph % (Auto) 29.1 Collier % (Auto) 10.4 H Eos % (Auto) 1.9 Baso % (Auto) 0.5 Absolute Neuts (auto) 5.4 Absolute Lymphs (auto) 2.72 Nucleated RBC % 0 ESR 33 H Sodium 137 Potassium 3.7 Chloride 106 Carbon Dioxide 26.0 Anion Gap 5 BUN 13 Creatinine 1.02 Estim Creat Clear Calc 55.32 Est GFR (MDRD) Af Amer 77 Est GFR (MDRD) Non-Af 64 BUN/Creatinine Ratio 12.7 Glucose 238 H Lactic Acid 1.4 Calcium 9.1 Total Bilirubin 0.30 AST 24 ALT 44 Alkaline Phosphatase 87 C-React Prot Ext Range 8.79 H Total Protein 7.4 Albumin 3.4 Globulin 4.0 Albumin/Globulin Ratio 0.8 L Urine Color Urine Clarity Urine pH Ur Specific [place] Urine Protein Urine Glucose (UA) Urine Ketones Urine Occult Blood Urine Nitrite Urine Bilirubin Urine Urobilinogen Ur Leukocyte Esterase Urine RBC Urine WBC Ur Squamous Epith Cells Urine Bacteria Hyaline Casts Urine Mucus Urine Test 11/15/21 00:35 WBC RBC Hgb Hct MCV MCH MCHC RDW Std Deviation RDW Coeff of Claude Plt Count MPV Immature Gran % (Auto) Neut % (Auto) Lymph % (Auto) Collier % (Auto) Eos % (Auto) Baso % (Auto) Absolute Neuts (auto) Absolute Lymphs (auto) Nucleated RBC % ESR Sodium Potassium Chloride Carbon Dioxide Anion Gap BUN Creatinine Estim Creat Clear Calc Est GFR (MDRD) Af Amer Est GFR (MDRD) Non-Af BUN/Creatinine Ratio Glucose Lactic Acid Calcium Total Bilirubin AST ALT Alkaline Phosphatase C-React Prot Ext Range Total Protein Albumin Globulin Albumin/Globulin Ratio Urine Color Yellow Urine Clarity Cloudy Urine pH 6.0 Ur Specific [place] 1.015 Urine Protein 100 H Urine Glucose (UA) 250 H Urine Ketones Negative Urine Occult Blood 150 H Urine Nitrite Positive H Urine Bilirubin Negative Urine Urobilinogen Normal Ur Leukocyte Esterase 500 H Urine RBC 10-25 SEEN Urine WBC >100 SEEN Ur Squamous Epith Cells 0-5 SEEN Urine Bacteria 4+ Hyaline Casts 0-5 SEEN Urine Mucus 0 SEEN Urine Test Negative Radiography Diagnostic Testing: Clinical Impression(s) from Imaging Studies Foot X-Ray 11/15/21 00:03 IMPRESSION: Postsurgical changes. No acute osseous abnormality. Electronically Signed: Robson Pena MD at 1:41 EDT , Discharge Plan Triage Chief Complaint: Complaint Other Complaint: Lower Extremity Injury ED Provider: Tia Saldana Dx/Rx/DC Orders Clinical Impression: UTI (urinary tract infection) due to urinary indwelling catheter, Hyperglycemia due to type 2 diabetes mellitus, Open wound of left foot, Pyelonephritis of right kidney Instructions: ED Diabetic Foot Care, ED Pyelonephritis, Female (Adult) Prescriptions: New doxycycline monohydrate 100 mg tablet 100 mg PO BID 10 Days Qty: 20 0RF ondansetron 4 mg tablet,disintegrating 4 mg PO Q6H PRN (Reason: nausea and vomiting) Qty: 10 0RF No Action Lantus Solostar U-100 Insulin 100 unit/mL (3 mL) insulin pen 33 unit SC QHS Fiasp FlexTouch U-100 Insulin 100 unit/mL (3 mL) insulin pen 0 - 100 ml subcut PRN PRN (Reason: Hyperglycemia) Label Comments: Inject 8-18 Units subcutaneously three times daily before meals. (Includes SS # 2 QAC -> Pt. aware of details.) MAX TDD = 55 UNITS / DAY. E1 Rx Instructions: 15 PLUS SLIDING SCALE. atorvastatin 80 mg tablet 80 mg PO DAILY Label Comments: Take 1 tablet by mouth once daily. lisinopril 5 mg tablet 5 mg PO DAILY Qty: 90 3RF (DME) pen needle, diabetic [BD Ultra-Fine Hope Pen Needle] 32 gauge x 5/32 needle See Rx Instructions .ROUTE .MEDSUPPLY Qty: 400 6RF Rx Instructions: 4x/day glimepiride 2 mg tablet 2 mg PO BID Qty: 180 3RF furosemide 20 MG tablet 20 mg PO DAILY@1700 Rx Instructions: 20 mg in the evening furosemide 40 MG tablet 40 mg PO BREAKFAST oxybutynin chloride 15 mg tablet extended release 24hr 15 mg PO DAILY propranolol 10 MG tablet 10 mg PO BID acetaminophen 500 MG tablet 1,000 mg PO TID PRN PRN (Reason: Pain Or Fever) phenazopyridine 200 MG tablet 200 mg PO BID PRN PRN (Reason: Pain) Qty: 10 0RF trazodone 100 mg tablet 100 mg PO QHS Label Comments: Take 1 tablet by mouth daily at bedtime. ondansetron 4 mg tablet,disintegrating 4 mg PO Q6H PRN (Reason: nausea and vomiting) Qty: 10 0RF Primary Care Provider: Will Shukla Referrals: Will Shukla MD [Primary Care Provider] - Gaurav Gomez DPM [STAFF PHYSICIAN] - 1-2 Weeks Activity Restrictions/Additional Instructions: Please follow-up with your urologist as well as your property management intern for further treatment and evaluation. Return if you have worsening symptoms especially develop fever we are not feeling better within 48 hours. Disposition Disposition: Home, Self Care Discharge Date/Time: 11/15/21 02:20
--- NOTE | 2021-11-15 00:03 | RAD_ITS ---
EXAM: XR Foot Min 3 Views LEFT HISTORY: diabetic wound. ball of foot TECHNIQUE: XR Foot Min 3 Views LEFT COMPARISON: April 08, 2021. LIMITATIONS: None. FINDINGS: 3 views of the left foot were obtained. Resection of the distal aspect of the fifth metatarsal as well as the distal phalanx of the first digit is redemonstrated. No gross osseous erosion is identified. No acute fracture. Ulceration of the skin at the plantar aspect of the forefoot. RAD/Foot min 3 Views IMPRESSION: Postsurgical changes. No acute osseous abnormality. Electronically Signed: Robson Pena MD at 1:41 EDT ,
[2021-11-15] MEDS: Ondansetron 4 MG/2 ML Vial IV (00:05)
[2021-11-15] MEDS: 0.9% Normal Saline 1,000 ML 1000 ML IV (00:05)
[2021-11-15] MEDS: Ketorolac 15 MG/ML Vial IV (00:05)
[2021-11-15 00:16] LABS: Erythrocyte Sedimentation Rate 33 mm/hr (0-30)
[2021-11-15 00:18] LABS: Absolute Lymphocyte Count 2.72 X10^3/uL (0.83-4.51); Absolute Neutrophil Count 5.4 X10^3/uL (2.0-7.7); Basophil# 0.05 X10^3/uL; Basophil% 0.5 % (0-1); Eosinophil# 0.18 X10^3/uL; Eosinophils% 1.9 % (0-5); Hematocrit 35.7 % (37-47); Hemoglobin 11.8 g/dL (12.0-15.0); Lymphocyte # 2.72 X10^3/ul (0.83-4.51); Lymphocyte % 29.1 % (19-41); Mean Corp Hgb Conc 33.1 g/dL (32-36); Mean Corpuscular Hgb 29.5 pg (27.0-32.0); Mean Corpuscular Volume 89.3 fL (81-99); Mean Platelet Vol. 10.6 fl (6.2-12.0); Monocyte# 0.97 X10^3/uL; Monocyte% 10.4 % (0-10); NRBC Flagged by Analyzer 0 % (0-5); Neutrophil # 5.39 X10^3/uL (2.7-7.7); Neutrophil % 57.7 % (47-70); Platelet Count 246 K/mm3 (150-450); RBC Distribution Width SD 42.5 fl (35.1-43.9); White Blood Count 9.4 K/mm3 (4.4-11.0)
[2021-11-15 00:34] LABS: ALB/GLOB Ratio 0.8 RATIO (0.9-2.4); AST(SGOT) 24 U/L (15-37); Alanine Aminotransfer ALT/SGPT 44 U/L (13-56); Albumin, Serum 3.4 g/dL (3.2-5.0); Alkaline Phosphatase 87 U/L (45-117); Anion Gap 5 (5-15); BUN 13 mg/dL (7-18); BUN/Creat Ratio 12.7 RATIO (10-20); CRP 8.79 mg/L (0.0-3.0); Calcium,Total 9.1 mg/dL (8.5-10.1); Chloride 106 mmol/L (98-107); Creatinine, Serum 1.02 mg/dL (0.55-1.02); EST Glomerular Filtration Rate 64 mL/min (>60); Est Glom Filt Rate - Afr Amer 77 mL/min (>60); Estimated Creatinine Clearance 55.32 ml/min; Glucose 238 mg/dL (74-106); Potassium 3.7 mmol/L (3.5-5.1); Protein, Total 7.4 g/dL (6.4-8.2); Sodium Level 137 mmol/L (136-145)
[2021-11-15 00:39] LABS: Mucous, Urine 0 SEEN /hpf (<or=2+)
[2021-11-15 00:44] LABS: Color, Urine Yellow (Yellow); Glucose, Dipstick 250 mg/dl (Normal); Ketone-Dipstick Negative (Negative); Leukocyte Esterase-Dipstick 500 /ul (Negative); Nitrite-Dipstick Positive (Negative); Occult Blood-Urine 150 /ul (Negative); Protein-Dipstick 100 mg/dl (Negative); Specific Gravity, Urine 1.015 (1.002-1.030); Urine Bilirubin Dipstick Negative (Negative); Urine Clarity Cloudy (Clear); Urine Urobilinogen Normal (Normal)
[2021-11-15 00:45] LABS: Lactic Acid 1.4 mmol/L (0.4-1.9)
[2021-11-15 00:46] LABS: Internal QC Validated? YES +Cl - CLEAR BKGD; Pregnancy, Urine Negative Negative
[2021-11-15 00:53] LABS: Bacteria 4+ /hpf (None Seen); Red Blood Cells-Urine 10-25 SEEN /hpf (0-5); Squamous Epithelial Cells - UA 0-5 SEEN /hpf (5-10); White Blood Cells >100 SEEN /hpf (0-5)
[2021-11-15 00:54] LABS: Hyaline Cast 0-5 SEEN /lpf (0-5)
[2021-11-15] MEDS: Doxycycline 100 MG CAPSULE PO (02:15)
== END 2021-11-15 02:20 | disposition home or self-care (01) ==
PROVIDERS: Emergency Provider Emergency Medicine; PCP Family Medicine; Visit Provider Emergency Medicine
DX: N39.0 Urinary tract infection, site not specified (principal); T83.511A Infection and inflammatory reaction due to indwelling urethral catheter, initial encounter; Q05.9 Spina bifida, unspecified; E11.65 Type 2 diabetes mellitus with hyperglycemia; E11.42 Type 2 diabetes mellitus with diabetic polyneuropathy; B96.5 Pseudomonas (aeruginosa) (mallei) (pseudomallei) as the cause of diseases classified elsewhere; N12 Tubulo-interstitial nephritis, not specified as acute or chronic; I10 Essential (primary) hypertension; N20.0 Calculus of kidney; S91.302A Unspecified open wound, left foot, initial encounter; M54.9 Dorsalgia, unspecified; R79.82 Elevated C-reactive protein (CRP); E78.5 Hyperlipidemia, unspecified
CPT/HCPCS: 73630; 80053; 81001; 81025; 83605; 85025; 85652; 86140; 96361; 96374; 96375; 99284; J7030; A4216; J2405

== ENCOUNTER 2021-11-20 22:45 | Inpatient (IN) | payer MEDICARE, MEDICAID, SELFPAY ==
[2021-11-20 22:46] VITALS: BP 144/82; PULSE 125; RESP 16; TEMP 36.5; O2SAT 98; BMI 39.2
--- NOTE | 2021-11-20 23:00 | RAD_ITS ---
STUDY: X-RAY - LEFT FOOT CLINICAL: Female, 41 years old. foot pain TECHNIQUE: 3 view(s) of the foot. COMPARISON: Left foot x-rays 11/15/2021. FINDINGS: BONES: Amputation of the great toe at the interphalangeal joint level, and resection of the distal fifth metatarsal unchanged. No fracture demonstrated. No definite lytic lesion or cortical erosion. JOINTS: No dislocation. SOFT TISSUES: Skin defect/ulceration at the plantar aspect at the level of the distal metatarsals similar to prior. There is a small density approximately 3 mm in the superficial soft tissues overlying the posterior aspect of the calcaneus plantar aspect which was not present on the prior study. Mild diffuse soft tissue swelling especially dorsally over the midfoot is similar but increased compared to prior. RAD/Foot min 3 Views IMPRESSION: Skin wound or ulceration plantar aspect at the distal metatarsal level. New small foreign body superficial plantar overlying the posterior calcaneus. Diffuse soft tissue swelling. No radiographic evidence of acute osteomyelitis. Electronically Signed: Olivia Segovia MD at 23:57 EDT ,
--- NOTE | 2021-11-20 23:01 | RAD_ITS ---
STUDY: X-RAY CHEST REASON FOR EXAM: Female, 41 years old. fever TECHNIQUE: AP portable. 11:24 PM. COMPARISON: 05/05/2021. FINDINGS: LUNGS: No consolidation. No pneumothorax. MEDIASTINUM: Unremarkable. CARDIAC SILHOUETTE: Not enlarged. BONES AND SOFT TISSUES: No acute abnormalities. RAD/Chest 1 View (Portable) IMPRESSION: No evidence of active intrathoracic disease. Electronically Signed: Olivia Segovia MD at 23:52 EDT ,
--- NOTE | 2021-11-20 23:01 | EKG12_ITS ---
Test Reason : GEN ILLNESS Blood Pressure : / mmHG Vent. Rate : 099 BPM Atrial Rate : 099 BPM P-R Int : 128 ms QRS Dur : 076 ms QT Int : 342 ms P-R-T Axes : 031 025 034 degrees QTc Int : 438 ms Normal sinus rhythm Normal ECG Confirmed by STEFANI FITZGERALD, RASHAWN ([id number]), online editor WILBUR FARRAR ([id number]) on 11/23/2021 8:20:27 AM Referred By: BROOKS Confirmed By:RASHAWN KO MD
--- NOTE | 2021-11-20 23:03 | EX.ED.DYSGE1 ---
HPI History of Present Illness Chief Complaint: General Illness Narrative Narrative: 41-year-old female with a history of spina bifida, diabetes, diabetic foot ulcers, and history of suprapubic Morales catheter which was placed by Dr. Box presenting with reported fever of 101 prior to arrival. She states she took Tylenol about 30 minutes ago and she arrives afebrile. She states that she has had nausea and vomiting today. She states she thinks her foot wound is getting worse on the left foot and she was recently here at [facility] and had this evaluated. She was sent home with a UTI and doxycycline to cover her foot wound. She states she was supposed to follow-up with Dr. Gomez outpatient but does not have an appointment until December. She states previously she has had surgery by Dr. George for her left great toe when she had osteomyelitis. She has a distant history of surgical repair that she cannot recall the surgeon on left foot fifth toe. She states she has been feeling bad most of the day and having increased pain in the foot but she has been unable to get a ride to the hospital. She states that her is working and was not able to get her care. Patient does not have any shortness of breath or cough. She does express that she has chills. [facility] Medical History Anxiety and depression Arthritis Manley's palsy Cellulitis of left lower extremity Chronic back pain Chronic nausea Colostomy in place Constipation Delayed wound healing Diabetes mellitus, type II Diabetic polyneuropathy Diabetic ulcer of left heel with fat layer exposed DJD (degenerative joint disease) of thoracic spine Dysthymic disorder Essential hypertension Hematochezia History of kidney stones History of migraine Hydronephrosis of right kidney Hyperglycemia Hyperlipidemia Infection of bladder catheter Insomnia Lipomeningocele Lower extremity edema Morbid obesity with BMI of 40.0-44.9, adult Neurogenic bladder Neurogenic bowel Non-compliance Non-smoker Normochromic normocytic anemia Panic attacks PSVT (paroxysmal supraventricular tachycardia) Sepsis Sepsis Spina bifida aperta of lumbar spine Thyroid cyst Type 2 diabetes mellitus with diabetic polyneuropathy Ulcer of left heel and midfoot with fat layer exposed Uninodular goiter Urinary tract infection UTI (urinary tract infection) UTI (urinary tract infection) Weakness Home Medications furosemide 20 mg tablet 20 mg PO DAILY@1700 fluid 08/28/18 [History Last Taken 12/22/20] furosemide 40 mg tablet 40 mg PO BREAKFAST fluid 04/05/19 [History Last Taken 12/22/20] insulin glargine 100 unit/mL (3 mL) subcutaneous pen (Lantus Solostar U-100 Insulin) 33 unit subcut QHS dm 11/01/19 [History Last Taken 12/21/20] oxybutynin chloride 15 mg tablet,extended release 24 hr 15 mg PO DAILY bladder 11/12/19 [History Last Taken 12/22/20] propranolol 10 mg tablet 10 mg PO BID heart 01/13/20 [History Last Taken 12/22/20] acetaminophen 500 mg tablet 1,000 mg PO TID PRN PRN Pain Or Fever 02/12/20 [History Last Taken 09/24/20 19:24] trazodone 100 mg tablet 100 mg PO QHS 01/19/21 [History Last Taken Unknown] atorvastatin 80 mg tablet 80 mg PO DAILY 01/29/21 [History Last Taken Unknown] insulin aspart (niacinamide)(U-100) 100 unit/mL(3 mL) subcutaneous pen 0 - 100 ml subcut PRN PRN Hyperglycemia 01/29/21 [History Last Taken Unknown] lisinopril 5 mg tablet 5 mg PO DAILY #90 tabs 01/29/21 [Rx Last Taken Unknown] pen needle, diabetic 32 gauge x 5/32 (BD Ultra-Fine Hope Pen Needle) #400 ea 03/05/21 [Rx Last Taken Unknown] glimepiride 2 mg tablet 2 mg PO BID #180 tabs 03/31/21 [Rx Last Taken Unknown] ondansetron 4 mg disintegrating tablet 4 mg PO Q6H PRN nausea and vomiting #10 tabs 08/20/21 [Rx Last Taken Unknown] doxycycline monohydrate 100 mg tablet 100 mg PO BID 10 days #20 tabs 11/15/21 [Rx Last Taken Unknown] phenazopyridine 200 mg tablet (Pyridium) 200 mg PO BID PRN PRN Pain 11/20/21 [History Last Taken Unknown] Allergy/AdvReac Type Severity Reaction Status Date / Time ceftriaxone [From Rocephin] Allergy Hives Verified 11/20/21 22:47 mushroom Allergy Anaphylaxis Verified 11/20/21 22:47 peanut Allergy Anaphylaxis Verified 11/20/21 22:47 fentanyl AdvReac Low blood Verified 11/20/21 22:47 pressure Gadolinium-MRI Contrast AdvReac Vomiting Verified 11/20/21 22:47 Medium Latex, Natural Rubber AdvReac Rash Verified 11/20/21 22:47 Family History Mother CVA (cerebral vascular accident) Thyroid disorder Diabetes Hypertension Heart disease Hyperlipidemia Myocardial infarction, Onset Age: 54 mother had diabetes Father Cancer skin Grandmother Cancer liver Other Arthritis Skin cancer Surgical History history insertion suprapubic catheter History of cholecystectomy History of dilation and curettage History of spinal surgery Hx of foot surgery Hx of ventral hernia repair S/P thyroid biopsy (~11/06/19) Status post gastric surgery Social History household members: significant other Smoking Status: Never smoker alcohol intake: current substance use type: does not use ROS ROS ED Constitutional Constitutional ED: Reports chills and fever(s) Eyes Eyes: Denies change in vision or diplopia ENT ENT ED: Denies rhinorrhea or sore throat Cardiovascular Cardiovascular: Denies chest pain or palpitations Respiratory/Chest Respiratory/Chest: Denies cough or dyspnea Gastrointestinal Gastrointestinal: Reports nausea and vomiting; Denies abdominal pain Musculoskeletal Musculoskeletal: Denies arthralgias Integumentary Denies abscess Neurologic Neurologic: Denies headache(s) or paresthesias Psychiatric Psychiatric: Denies anxiety or depression EXAM Physical Exam Const Vital Signs: 11/20/21 22:46 11/20/21 22:53 11/20/21 23:28 Temperature 97.7 F L Temperature Source Temporal Pulse Rate 125 H 97 Respiratory Rate 16 18 Respiratory Effort Normal Non-Labored Respiratory Pattern Normal Blood Pressure 144/82 H 111/75 Blood Pressure Mean 102 87 Pulse Ox 98 99 Oxygen Delivery Method Room Air Room Air 11/20/21 23:28 11/20/21 23:28 11/21/21 01:01 Temperature 102.1 F H Temperature Source Oral Pulse Rate 95 Respiratory Rate 18 Respiratory Effort Respiratory Pattern Blood Pressure 111/67 Blood Pressure Mean 81 Pulse Ox 97 Oxygen Delivery Method Room Air Room Air 11/21/21 01:01 Temperature 99.2 F H Temperature Source Oral Pulse Rate Respiratory Rate Respiratory Effort Respiratory Pattern Blood Pressure Blood Pressure Mean Pulse Ox Oxygen Delivery Method Positive obese and unkempt General Appearance ED: unkempt and NAD Nutritional Appearance: obese HEENT Reports moist mucous membranes Eyes PERRL and EOMs intact bilaterally General Eye ED: Negative for pale conjunctiva or scleral icterus Chest Wall inspection of chest normal Resp normal respiratory effort and clear to auscultation bilaterally Cardio regular rate Rate: tachycardic GI GI Narrative: Suprapubic Morales catheter noted. Extremity Extremity Narrative: The left foot has status post amputation of the fifth toe and partial amputation of the great toe. There is a small ulceration on the plantar surface of the left foot which is about 2 cm and circular. There is no active drainage. The foot is covered in dirt and grass. There are some erythema extending into the toes and soft tissue swelling of the left foot. She complains of tenderness to palpation. No crepitance. Neuro oriented x3 and CN's II-XII intact bilaterally Psych Appearance: unkempt Skin Skin Narrative: As documented above MDM MDM MDM Narrative Medical decision making narrative: -year-old female presenting with generalized weakness, nausea and vomiting, increasing left foot pain. Initially she was afebrile on arrival. She states she was febrile at home with a temperature of 101. She states she took Tylenol 30 minutes prior to arrival. Her temperature did go up to 102.1 Fahrenheit. After discussion with her she apparently took a Tylenol at about 6:30 PM which was hours ago. She is given another dose of Tylenol because she cannot take ibuprofen. This is at the 6-hour quynh. Patient was given morphine and Zofran for pain and nausea respectively. Since he is febrile I did check her for COVID and this is negative. Due to her initial tachycardia and fever sepsis work-up was pursued. CBC shows a leukocytosis of 18.1 with left shift. Hemoglobin and hematocrit are stable. Coagulation studies are normal. Creatinine 1.07 and just slightly elevated above her baseline. Glucose elevated at 208 without anion gap. LFTs are unremarkable. Lactic acid is within normal limits. EKG obtained on on my interpretation shows a normal sinus rhythm with a ventricular rate of 9 9 bpm without sign of ischemic change. Chest x-ray on my interpretation shows no acute cardiopulmonary process and the radiologist does agree. Urine specimen obtained not appear to be infected. I did obtain an image of the left foot and on my interpretation of the foot x-rays there does appear to be soft tissue swelling. There does not appear to be any bony changes from previous. There is a foreign body noted in the calcaneal region. The radiologist also reviewed this and agrees. I spoke with the hospitalist regarding failure of outpatient antibiotics and cellulitis of the left foot. The patient was reevaluated at 0 115 and states he still feels generally weak and shaky and does not feel she can go home. Based on her work-up she does not appear to be septic. The hospitalist was amenable to keeping her in the hospital. I did discuss antibiotic treatment with him and he states that he will take care of the IV antibiotics. Impression: 1. Left foot cellulitis 2. Foreign body left foot 3. Failure of outpatient antibiotics 4. Tachycardia 5. Leukocytosis 6. Febrile Lab Data Labs: Laboratory Results - last 24 hr 11/20/21 11/20/21 11/20/21 23:24 23:24 23:24 WBC 18.1 H RBC 4.31 Hgb 12.8 Hct 38.4 MCV 89.1 MCH 29.7 MCHC 33.3 RDW Std Deviation 41.7 RDW Coeff of Claude 12.7 Plt Count 319 MPV 11.0 Immature Gran % (Auto) 0.800 Neut % (Auto) 81.7 H Lymph % (Auto) 9.3 L [place] % (Auto) 7.1 Eos % (Auto) 0.7 Baso % (Auto) 0.4 Absolute Neuts (auto) 14.8 H Absolute Lymphs (auto) 1.68 Nucleated RBC % 0 ESR 61 H PT 12.3 INR 0.9 APTT 29.0 Sodium 136 Potassium 3.7 Chloride 105 Carbon Dioxide 20.0 L Anion Gap 11 BUN 11 Creatinine 1.07 H Estim Creat Clear Calc 52.74 Est GFR (MDRD) Af Amer 73 Est GFR (MDRD) Non-Af 60 BUN/Creatinine Ratio 10.3 Glucose 208 H Lactic Acid Calcium 9.7 Total Bilirubin 0.50 AST 30 ALT 51 Alkaline Phosphatase 100 Troponin I High Sens < 3 L C-React Prot Ext Range 18.70 H Total Protein 8.0 Albumin 3.7 Globulin 4.3 H Albumin/Globulin Ratio 0.9 Urine Color Urine Clarity Urine pH Ur Specific [place] Urine Protein Urine Glucose (UA) Urine Ketones Urine Occult Blood Urine Nitrite Urine Bilirubin Urine Urobilinogen Ur Leukocyte Esterase Urine RBC Urine WBC Ur Squamous Epith Cells Urine Bacteria Urine Mucus 11/20/21 11/20/21 23:24 23:25 WBC RBC Hgb Hct MCV MCH MCHC RDW Std Deviation RDW Coeff of Claude Plt Count MPV Immature Gran % (Auto) Neut % (Auto) Lymph % (Auto) [place] % (Auto) Eos % (Auto) Baso % (Auto) Absolute Neuts (auto) Absolute Lymphs (auto) Nucleated RBC % ESR PT INR APTT Sodium Potassium Chloride Carbon Dioxide Anion Gap BUN Creatinine Estim Creat Clear Calc Est GFR (MDRD) Af Amer Est GFR (MDRD) Non-Af BUN/Creatinine Ratio Glucose Lactic Acid 1.9 Calcium Total Bilirubin AST ALT Alkaline Phosphatase Troponin I High Sens C-React Prot Ext Range Total Protein Albumin Globulin Albumin/Globulin Ratio Urine Color Yellow Urine Clarity Sl Cloudy Urine pH 7.0 Ur Specific [place] 1.005 Urine Protein 30 H Urine Glucose (UA) Normal Urine Ketones 5 H Urine Occult Blood 10 H Urine Nitrite Negative Urine Bilirubin Negative Urine Urobilinogen Normal Ur Leukocyte Esterase 100 H Urine RBC 0-5 SEEN Urine WBC 5-10 SEEN Ur Squamous Epith Cells 0-5 SEEN Urine Bacteria 1+ Urine Mucus 0 SEEN Radiography Diagnostic Testing: Clinical Impression(s) from Imaging Studies Foot X-Ray 11/20/21 23:00 IMPRESSION: Skin wound or ulceration plantar aspect at the distal metatarsal level. New small foreign body superficial plantar overlying the posterior calcaneus. Diffuse soft tissue swelling. No radiographic evidence of acute osteomyelitis. Electronically Signed: Olivia Segovia MD at 23:57 EDT , Chest X-Ray 11/20/21 23:01 IMPRESSION: No evidence of active intrathoracic disease. Electronically Signed: Olivia Segovia MD at 23:52 EDT , Discharge Plan Triage Chief Complaint: General Illness ED Provider: Agustin Aguilar Dx/Rx/DC Orders Prescriptions: No Action Lantus Solostar U-100 Insulin 100 unit/mL (3 mL) insulin pen 33 unit SC QHS Fiasp FlexTouch U-100 Insulin 100 unit/mL (3 mL) insulin pen 0 - 100 ml subcut PRN PRN (Reason: Hyperglycemia) Label Comments: Inject 8-18 Units subcutaneously three times daily before meals. (Includes SS # 2 QAC -> Pt. aware of details.) MAX TDD = 55 UNITS / DAY. E1 Rx Instructions: 15 PLUS SLIDING SCALE. atorvastatin 80 mg tablet 80 mg PO DAILY Label Comments: Take 1 tablet by mouth once daily. lisinopril 5 mg tablet 5 mg PO DAILY Qty: 90 3RF (DME) pen needle, diabetic [BD Ultra-Fine Hope Pen Needle] 32 gauge x 5/32 needle See Rx Instructions .ROUTE .MEDSUPPLY Qty: 400 6RF Rx Instructions: 4x/day glimepiride 2 mg tablet 2 mg PO BID Qty: 180 3RF furosemide 20 MG tablet 20 mg PO DAILY@1700 Rx Instructions: 20 mg in the evening furosemide 40 MG tablet 40 mg PO BREAKFAST oxybutynin chloride 15 mg tablet extended release 24hr 15 mg PO DAILY propranolol 10 MG tablet 10 mg PO BID acetaminophen 500 MG tablet 1,000 mg PO TID PRN PRN (Reason: Pain Or Fever) trazodone 100 mg tablet 100 mg PO QHS Label Comments: Take 1 tablet by mouth daily at bedtime. ondansetron 4 mg tablet,disintegrating 4 mg PO Q6H PRN (Reason: nausea and vomiting) Qty: 10 0RF doxycycline monohydrate 100 mg tablet 100 mg PO BID 10 Days Qty: 20 0RF phenazopyridine [Pyridium] 200 MG tablet 200 mg PO BID PRN PRN (Reason: Pain) Primary Care Provider: Will Shukla Referrals: Will Shukla MD [Primary Care Provider] -
[2021-11-20] MEDS: Ondansetron 4 MG/2 ML Vial IV (23:16)
[2021-11-20] MEDS: Morphine 4 MG/ML Syringe IV (23:16)
[2021-11-20] MEDS: 0.9% Normal Saline 1,000 ML 999 ML IV (23:17)
[2021-11-20 23:27] LABS: Mucous, Urine 0 SEEN /hpf (<or=2+)
[2021-11-20 23:28] VITALS: BP 111/75; PULSE 97; RESP 18; TEMP 38.9; O2SAT 99
--- NOTE | 2021-11-20 23:38 | NURSING ---
pt stated had Tylenol at home around 1830.
[2021-11-20 23:44] LABS: International Normalized Ratio 0.9; Prothrombin Time (Protime)PT. 12.3 SECONDS (11.7-14.9)
[2021-11-20 23:57] LABS: ALB/GLOB Ratio 0.9 RATIO (0.9-2.4); AST(SGOT) 30 U/L (15-37); Alanine Aminotransfer ALT/SGPT 51 U/L (13-56); Albumin, Serum 3.7 g/dL (3.2-5.0); Alkaline Phosphatase 100 U/L (45-117); Anion Gap 11 (5-15); BUN 11 mg/dL (7-18); BUN/Creat Ratio 10.3 RATIO (10-20); Calcium,Total 9.7 mg/dL (8.5-10.1); Chloride 105 mmol/L (98-107); Creatinine, Serum 1.07 mg/dL (0.55-1.02); EST Glomerular Filtration Rate 60 mL/min (>60); Est Glom Filt Rate - Afr Amer 73 mL/min (>60); Estimated Creatinine Clearance 52.74 ml/min; Globulin 4.3 g/dL (2.2-4.2); Glucose 208 mg/dL (74-106); Lactic Acid 1.9 mmol/L (0.4-1.9); Potassium 3.7 mmol/L (3.5-5.1); Sodium Level 136 mmol/L (136-145); Troponin-I HS < 3 pg/mL (3.0-54.0)
[2021-11-20] MEDS: Acetaminophen 500 MG Tablet 1000 MG PO (23:58)
[2021-11-21] VITALS (8 sets, daily range): BP systolic 100–112; BP diastolic 57–70; PULSE 68–95; RESP 16–20; TEMP 36.6–37.3; O2SAT 94–98; BMI 38.5
[2021-11-21 00:03] LABS: Erythrocyte Sedimentation Rate 61 mm/hr (0-30)
[2021-11-21 00:04] LABS: Absolute Lymphocyte Count 1.68 X10^3/uL (0.83-4.51); Absolute Neutrophil Count 14.8 X10^3/uL (2.0-7.7); Basophil# 0.07 X10^3/uL; Basophil% 0.4 % (0-1); Eosinophil# 0.13 X10^3/uL; Eosinophils% 0.7 % (0-5); Hematocrit 38.4 % (37-47); Hemoglobin 12.8 g/dL (12.0-15.0); Lymphocyte # 1.68 X10^3/ul (0.83-4.51); Lymphocyte % 9.3 % (19-41); Mean Corp Hgb Conc 33.3 g/dL (32-36); Mean Corpuscular Hgb 29.7 pg (27.0-32.0); Mean Corpuscular Volume 89.1 fL (81-99); Monocyte# 1.28 X10^3/uL; Monocyte% 7.1 % (0-10); NRBC Flagged by Analyzer 0 % (0-5); Neutrophil # 14.82 X10^3/uL (2.7-7.7); Neutrophil % 81.7 % (47-70); Platelet Count 319 K/mm3 (150-450); RBC Distribution Width CV 12.7 % (11.6-14.6); RBC Distribution Width SD 41.7 fl (35.1-43.9); Red Blood Count 4.31 M/mm3 (4.2-5.4); White Blood Count 18.1 K/mm3 (4.4-11.0)
[2021-11-21 00:15] LABS: Color, Urine Yellow (Yellow); Glucose, Dipstick Normal (Normal); Ketone-Dipstick 5 mg/dl (Negative); Leukocyte Esterase-Dipstick 100 /ul (Negative); Nitrite-Dipstick Negative (Negative); Occult Blood-Urine 10 /ul (Negative); Protein-Dipstick 30 mg/dl (Negative); Specific Gravity, Urine 1.005 (1.002-1.030); Urine Bilirubin Dipstick Negative (Negative); Urine Urobilinogen Normal (Normal)
[2021-11-21 00:25] LABS: Urine Clarity Sl Cloudy (Clear)
[2021-11-21 00:43] LABS: White Blood Cells 5-10 SEEN /hpf (0-5)
[2021-11-21 00:44] LABS: Bacteria 1+ /hpf (None Seen); Red Blood Cells-Urine 0-5 SEEN /hpf (0-5); Squamous Epithelial Cells - UA 0-5 SEEN /hpf (5-10)
--- NOTE | 2021-11-21 01:39 | HP.PCM.HOS_ITS ---
[facility] - General General Date of Admission: 11/21/21 Date of Service: 11/21/21 Chief Complaint: malaise, fever HPI Narrative HEBER BAILON, is a 41 F who presents presents with pain in her left foot extending up into her right leg, malaise and fevers. Patient was seen on the in the emergency room diagnosed with a urinary tract infection and with cephalexin. Patient was taken that but started feeling sick and started developing pain in her foot. Patient has spina bifida and diabetes and has subsequent neuropathy from both and has developed some superficial ulcerations under her first MTP is well as on her heel. Patient was concerned because she has had a history of osteomyelitis requiring amputation of part of her left grea t toe as well as a metatarsal in her left 5th. Patient underwent infectious work-up here that was unremarkable. X-ray shows postsurgical changes but no clear evidence of osteomyelitis. [facility] Medical History Anxiety and depression Arthritis Manley's palsy Cellulitis of left lower extremity Chronic back pain Chronic nausea Colostomy in place Constipation Delayed wound healing Diabetes mellitus, type II Diabetic polyneuropathy Diabetic ulcer of left heel with fat layer exposed DJD (degenerative joint disease) of thoracic spine Dysthymic disorder Essential hypertension Hematochezia History of kidney stones History of migraine Hydronephrosis of right kidney Hyperglycemia Hyperlipidemia Infection of bladder catheter Insomnia Lipomeningocele Lower extremity edema Morbid obesity with BMI of 40.0-44.9, adult Neurogenic bladder Neurogenic bowel Non-compliance Non-smoker Normochromic normocytic anemia Panic attacks PSVT (paroxysmal supraventricular tachycardia) Sepsis Sepsis Spina bifida aperta of lumbar spine Thyroid cyst Type 2 diabetes mellitus with diabetic polyneuropathy Ulcer of left heel and midfoot with fat layer exposed Uninodular goiter Urinary tract infection UTI (urinary tract infection) UTI (urinary tract infection) Weakness Home Medications furosemide 20 mg tablet 20 mg PO DAILY@1700 fluid 08/28/18 [History Last Taken 12/22/20] furosemide 40 mg tablet 40 mg PO BREAKFAST fluid 04/05/19 [History Last Taken 12/22/20] insulin glargine 100 unit/mL (3 mL) subcutaneous pen (Lantus Solostar U-100 Insulin) 33 unit subcut QHS dm 11/01/19 [History Last Taken 12/21/20] oxybutynin chloride 15 mg tablet,extended release 24 hr 15 mg PO DAILY bladder 11/12/19 [History Last Taken 12/22/20] propranolol 10 mg tablet 10 mg PO BID heart 01/13/20 [History Last Taken 12/22/20] acetaminophen 500 mg tablet 1,000 mg PO TID PRN PRN Pain Or Fever 02/12/20 [History Last Taken 09/24/20 19:24] trazodone 100 mg tablet 100 mg PO QHS 01/19/21 [History Last Taken Unknown] atorvastatin 80 mg tablet 80 mg PO DAILY 01/29/21 [History Last Taken Unknown] insulin aspart (niacinamide)(U-100) 100 unit/mL(3 mL) subcutaneous pen 0 - 100 ml subcut PRN PRN Hyperglycemia 01/29/21 [History Last Taken Unknown] lisinopril 5 mg tablet 5 mg PO DAILY #90 tabs 01/29/21 [Rx Last Taken Unknown] pen needle, diabetic 32 gauge x 5/32 (BD Ultra-Fine Hope Pen Needle) #400 ea 03/05/21 [Rx Last Taken Unknown] glimepiride 2 mg tablet 2 mg PO BID #180 tabs 03/31/21 [Rx Last Taken Unknown] ondansetron 4 mg disintegrating tablet 4 mg PO Q6H PRN nausea and vomiting #10 tabs 08/20/21 [Rx Last Taken Unknown] doxycycline monohydrate 100 mg tablet 100 mg PO BID 10 days #20 tabs 11/15/21 [Rx Last Taken Unknown] phenazopyridine 200 mg tablet (Pyridium) 200 mg PO BID PRN PRN Pain 11/20/21 [History Last Taken Unknown] Allergy/AdvReac Type Severity Reaction Status Date / Time ceftriaxone [From Rocephin] Allergy Hives Verified 11/20/21 22:47 mushroom Allergy Anaphylaxis Verified 11/20/21 22:47 peanut Allergy Anaphylaxis Verified 11/20/21 22:47 fentanyl AdvReac Low blood Verified 11/20/21 22:47 pressure Gadolinium-MRI Contrast AdvReac Vomiting Verified 11/20/21 22:47 Medium Latex, Natural Rubber AdvReac Rash Verified 11/20/21 22:47 Family History Mother CVA (cerebral vascular accident) Thyroid disorder Diabetes Hypertension Heart disease Hyperlipidemia Myocardial infarction, Onset Age: 54 mother had diabetes Father Cancer skin Grandmother Cancer liver Other Arthritis Skin cancer Surgical History history insertion suprapubic catheter History of cholecystectomy History of dilation and curettage History of spinal surgery Hx of foot surgery Hx of ventral hernia repair S/P thyroid biopsy (~11/06/19) Status post gastric surgery Social History household members: significant other Smoking Status: Never smoker alcohol intake: current substance use type: does not use ROS ROS Narrative Has a colostomy as well as suprapubic catheter. All review of systems were negative except as mentioned above in the history of present illness and the other review of systems. Vital Signs Vital Signs Vital Signs: 11/20/21 22:46 11/20/21 22:53 11/20/21 23:28 Temperature 36.5 C L Temperature Source Temporal Pulse Rate 125 H 97 Respiratory Rate 16 18 Respiratory Effort Normal Non-Labored Respiratory Pattern Normal Blood Pressure 144/82 H 111/75 Blood Pressure Mean 102 87 Pulse Ox 98 99 Oxygen Delivery Method Room Air Room Air 11/20/21 23:28 11/20/21 23:28 11/21/21 01:01 Temperature 38.9 C H Temperature Source Oral Pulse Rate 95 Respiratory Rate 18 Respiratory Effort Respiratory Pattern Blood Pressure 111/67 Blood Pressure Mean 81 Pulse Ox 97 Oxygen Delivery Method Room Air Room Air 11/21/21 01:01 Temperature 37.3 C H Temperature Source Oral Pulse Rate Respiratory Rate Respiratory Effort Respiratory Pattern Blood Pressure Blood Pressure Mean Pulse Ox Oxygen Delivery Method Weight Weight: 94.347 kg Body Mass Index (BMI) 39.2 Physical Exam Const alert and no apparent distress HEENT normocephalic, head/scalp atraumatic, hearing grossly normal bilaterally and moist oral mucous membranes Eyes Eyes Narrative: Glasses. No icterus. Neck no lymphadenopathy Neck Narrative: No thyromegaly Resp normal respiratory effort, no retractions and no use of accessory muscles Cardio regular rate, regular rhythm, S1 normal heart sound and S2 normal heart sound GI normal to inspection, nondistended, normoactive bowel sounds, soft to palpation and non-tender GI Narrative: Suprapubic catheter and colostomy in place Extremity Extremity Narrative: Does have postsurgical changes to the left great toe as well as the 5th MTP. Superficial ulceration under the first MTP with no fluctuance nor induration. Superficial ulceration on the posterior aspect of her left heel. No fluctuance noted. Faint erythema involving the left foot. Neuro oriented x3 Psych affect normal Results Lab / Micro Data Attestation: I reviewed the patient's lab results. Result Diagrams: 11/20/21 23:24 11/20/21 23:24 Labs: Laboratory Results - last 24 hr 11/20/21 23:24: WBC 18.1 H, RBC 4.31, Hgb 12.8, Hct 38.4, MCV 89.1, MCH 29.7, MCHC 33.3, RDW Std Deviation 41.7, RDW Coeff of Claude 12.7, Plt Count 319, MPV 11.0, Immature Gran % (Auto) 0.800, Neut % (Auto) 81.7 H, Lymph % (Auto) 9.3 L, [place] % (Auto) 7.1, Eos % (Auto) 0.7, Baso % (Auto) 0.4, Absolute Neuts (auto) 14.8 H, Absolute Lymphs (auto) 1.68, Nucleated RBC % 0, ESR 61 H 11/20/21 23:24: Sodium 136, Potassium 3.7, Chloride 105, Carbon Dioxide 20.0 L, Anion Gap 11, BUN 11, Creatinine 1.07 H, Estim Creat Clear Calc 52.74, Est GFR (MDRD) Af Amer 73, Est GFR (MDRD) Non-Af 60, BUN/Creatinine Ratio 10.3, Glucose 208 H, Calcium 9.7, Total Bilirubin 0.50, AST 30, ALT 51, Alkaline Phosphatase 100, Troponin I High Sens < 3 L, C-React Prot Ext Range 18.70 H, Total Protein 8.0, Albumin 3.7, Globulin 4.3 H, Albumin/Globulin Ratio 0.9 11/20/21 23:24: PT 12.3, INR 0.9, APTT 29.0 11/20/21 23:24: Lactic Acid 1.9 11/20/21 23:25: Urine Color Yellow, Urine Clarity Sl Cloudy, Urine pH 7.0, Ur Specific [place] 1.005, Urine Protein 30 H, Urine Glucose (UA) Normal, Urine Ketones 5 H, Urine Occult Blood 10 H, Urine Nitrite Negative, Urine Bilirubin Negative, Urine Urobilinogen Normal, Ur Leukocyte Esterase 100 H, Urine RBC 0-5 SEEN, Urine WBC 5-10 SEEN, Ur Squamous Epith Cells 0-5 SEEN, Urine Bacteria 1+, Urine Mucus 0 SEEN Micro: Microbiology 11/20/21 23:38 Nasal Secretion SARS-CoV-2 Antigen (Rapid) - Final Radiology Impression Foot X-Ray 11/20/21 23:00 IMPRESSION: Skin wound or ulceration plantar aspect at the distal metatarsal level. New small foreign body superficial plantar overlying the posterior calcaneus. Diffuse soft tissue swelling. No radiographic evidence of acute osteomyelitis. Electronically Signed: Olivia Segovia MD at 23:57 EDT , Chest X-Ray 11/20/21 23:01 IMPRESSION: No evidence of active intrathoracic disease. Electronically Signed: Olivia Segovia MD at 23:52 EDT , Assessment & Plan Assessment/Plan (1) Cellulitis: QUALIFIERS: Site of cellulitis: extremity Site of cellulitis of extremity: lower extremity Laterality: left Qualified Code(s): L03.116 - Cellulitis of left lower limb PLAN: Plan 1. Left foot cellulitis ESR was elevated at 61 Patient does have some superficial ulcers on her left foot. Concern is that patient may have osteomyelitis though not seen on the x-rays. Patient was seen in the emergency room on the and diagnosed with urinary tract infection which appears that she did have and was put on Keflex. Her urinalysis looks much improved no sign of active infection at this point in time. Plan: * Antibiotics with Pipracillin/tazobactam and vancomycin * Check wound cultures * MRI of the left foot to evaluate for osteomyelitis. If osteomyelitis confirmed then patient will need podiatry consultation. * Wound care 2. Diabetes mellitus type 2 Insulin-dependent Plan: Continue with Lantus and add sliding scale insulin 3. Spina bifida Interestingly, patient was diagnosed with that while she was in her early 30s due to neuropathy in her left foot. No acute management but certainly complicates overall care and recovery. 4. VTE prophylaxis with Lovenox Charges/Coding Visit Charges Inpatient E&M: 73893 Init Hosp L2
--- NOTE | 2021-11-21 02:08 | MRI_ITS ---
STUDY: MRI LEFT FOREFOOT WITHOUT CONTRAST REASON FOR EXAM: Female, 41 years old. left foot cellulitis TECHNIQUE: Standardized fat and water weighted pulse sequences were obtained in all 3 orthogonal planes. COMPARISON: None. FINDINGS: There is degenerative arthrosis of the metatarsophalangeal joint of the hallux with a hallux valgus deformity. Normal tibial and fibular sesamoids, with normal sesamoids-first metatarsal articulations. Normal interphalangeal joint of the hallux. 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 Normal medial and lateral heads of the flexor hallucis brevis tendons. Normal flexor and extensor hallucis longus tendons. Normal second through fifth metatarsophalangeal (MTP) joints. Normal interphalangeal joints of the second through fifth toes. Normal proximal, middle and distal phalanges of the second through fifth toes. Normal first through fourth intermetatarsal spaces. Normal flexor and extensor tendons of the second through fifth toes. Status post amputation of the distal aspect of the fifth metatarsal bone. Normal intrinsic muscles of the forefoot. Ulcer with surrounding skin thickening and edema in the subcutaneous fat of the plantar aspect of the foot plantar to the first metatarsophalangeal joint consistent with cellulitis. No loculated fluid collection to suggest abscess. No marrow edema or bony destruction to suggest osteomyelitis. MRI/Lower Ext/No Jt/w/o IMPRESSION: Cellulitis with ulcer plantar to the first metatarsophalangeal joint but no abscess or osteomyelitis. Electronically Signed: Severino Rand MD at 18:59 EDT ,
[2021-11-21] MEDS: oxyCODONE 5 MG Tablet 10 MG PO (02:59)
--- NOTE | 2021-11-21 04:27 | PCM.RX.CS ---
Consult Pharmacy has been consulted to manage selected antiobiotic: Vancomycin Type of Consult: New start Suspected Infection: Skin/Soft tissue Prior Doses of Antibiotics Received/Current Regimen: Medications Vancomycin HCl (Vancomycin) 1,000 mg in 200 mls @ 200 mls/hr IV Q12H DERIAN Vancomycin HCl 2,000 mg/ (Sodium Chloride) 540 mls @ 250 mls/hr IV X1 ONE Stop: 11/21/21 04:39 Last Admin: 11/21/21 03:49 Dose: 250 mls/hr Labs: Sodium 136 mmol/L (136-145) 11/20/21 23:24 Potassium 3.7 mmol/L (3.5-5.1) 11/20/21 23:24 Chloride 105 mmol/L (98-107) 11/20/21 23:24 Carbon Dioxide 20.0 mmol/L (21.0-32.0) L 11/20/21 23:24 Anion Gap 11 (5-15) 11/20/21 23:24 BUN 11 mg/dL (7-18) 11/20/21 23:24 Creatinine 1.07 mg/dL (0.55-1.02) H 11/20/21 23:24 Est GFR (MDRD) Af Amer 73 mL/min (>60) 11/20/21 23:24 Est GFR (MDRD) Non-Af 60 mL/min (>60) 11/20/21 23:24 BUN/Creatinine Ratio 10.3 RATIO (10-20) 11/20/21 23:24 Glucose 208 mg/dL (74-106) H 11/20/21 23:24 Microbiology: Microbiology 11/20/21 23:38 Nasal Secretion SARS-CoV-2 Antigen (Rapid) - Final Weight used for dosin.6 kg Estimated Creatinine Clearance: 53 Goal Trough: 15-20 mcg/mL Pharmacy Plan for Drug Dosing: Pharmacy Service will continue to monitor and adjust dosing as required. Follow-Up Labs: Trough Vancomycin Labs to be done on [date and time ordered]: 11/22/21 @1530
[2021-11-21] MEDS: DiphenhydrAMINE 25 MG Capsule PO (05:31)
--- NOTE | 2021-11-21 05:57 | NURSING ---
Pt refusing to remove pants from home and change into hospital pants
[2021-11-21 06:19] LABS: Absolute Lymphocyte Count 2.01 X10^3/uL (0.83-4.51); Absolute Neutrophil Count 11.6 X10^3/uL (2.0-7.7); Basophil# 0.06 X10^3/uL; Basophil% 0.4 % (0-1); Eosinophil# 0.09 X10^3/uL; Eosinophils% 0.6 % (0-5); Hematocrit 38.3 % (37-47); Hemoglobin 12.4 g/dL (12.0-15.0); Lymphocyte # 2.01 X10^3/ul (0.83-4.51); Lymphocyte % 13.5 % (19-41); Mean Corp Hgb Conc 32.4 g/dL (32-36); Mean Corpuscular Hgb 29.5 pg (27.0-32.0); Mean Platelet Vol. 10.8 fl (6.2-12.0); Monocyte# 0.98 X10^3/uL; Monocyte% 6.6 % (0-10); NRBC Flagged by Analyzer 0 % (0-5); Neutrophil % 78.2 % (47-70); Platelet Count 285 K/mm3 (150-450); RBC Distribution Width CV 13.1 % (11.6-14.6); RBC Distribution Width SD 43.5 fl (35.1-43.9); Red Blood Count 4.21 M/mm3 (4.2-5.4); White Blood Count 14.8 K/mm3 (4.4-11.0)
[2021-11-21] MEDS: Insulin Lispro 100 UNIT/ML INSULN.PEN SC (06:37)
[2021-11-21 06:47] LABS: Anion Gap 8 (5-15); BUN 8 mg/dL (7-18); BUN/Creat Ratio 10.1 RATIO (10-20); Calcium,Total 8.8 mg/dL (8.5-10.1); Chloride 108 mmol/L (98-107); EST Glomerular Filtration Rate 85 mL/min (>60); Est Glom Filt Rate - Afr Amer 103 mL/min (>60); Estimated Creatinine Clearance 70.54 ml/min; Glucose 180 mg/dL (74-106); Potassium 3.9 mmol/L (3.5-5.1); Sodium Level 138 mmol/L (136-145)
--- NOTE | 2021-11-21 07:33 | PCM.RX.CS ---
Consult Pharmacy has been consulted to manage selected antiobiotic: Vancomycin Type of Consult: Follow-up Suspected Infection: Skin/Soft tissue Labs: Sodium 138 mmol/L (136-145) 11/21/21 05:54 Potassium 3.9 mmol/L (3.5-5.1) 11/21/21 05:54 Chloride 108 mmol/L (98-107) H 11/21/21 05:54 Carbon Dioxide 22.0 mmol/L (21.0-32.0) 11/21/21 05:54 Anion Gap 8 (5-15) 11/21/21 05:54 BUN 8 mg/dL (7-18) 11/21/21 05:54 Creatinine 0.80 mg/dL (0.55-1.02) 11/21/21 05:54 Est GFR (MDRD) Af Amer 103 mL/min (>60) 11/21/21 05:54 Est GFR (MDRD) Non-Af 85 mL/min (>60) 11/21/21 05:54 BUN/Creatinine Ratio 10.1 RATIO (10-20) 11/21/21 05:54 Glucose 180 mg/dL (74-106) H 11/21/21 05:54 Microbiology: Microbiology 11/20/21 23:38 Nasal Secretion SARS-CoV-2 Antigen (Rapid) - Final Pharmacy Plan for Drug Dosing: DAILY ASSESSMENT Current Vancomycin Dose: 1000MG Q12 Number of Doses Received: 2000MG LOADING DOSE X1 Current Renal Function: SCR 0.8, CRCL 97 ML/MIN USING ADJ BW Renal Function Trend: IMPROVED Lab/Micro: BLOOD, WOUND AND URINE CX PENDING Any Change in Vanc Plan: YES, IMPROVED CRCL. BASED ON WEIGHT OF 92.6 KG AND CRCL OF 97 ML/MIN, CHANGING DOSE TO 1750MG Q12 PER POLICY. Pending Level: 11/22/21 @ 1530 Pharmacy Service will continue to monitor and adjust dosing as required.
[2021-11-21] MEDS: Furosemide 40 MG Tablet PO (08:35)
[2021-11-21] MEDS: Glimepiride 2 MG Tablet PO ×2 (08:35→17:30)
[2021-11-21 09:00] LABS: M R Staph aureus DNA By PCR Negative (Negative); Probe Check PASS; Specimen Processing Control PASS; Staph aureus DNA By PCR NEGATIVE (Negative)
--- NOTE | 2021-11-21 09:14 | NURSING ---
0845 patient diabetic monitoring disc removed by patient for MRI. down to MRI. Florencia Boyle RN
[2021-11-21] MEDS: Tolterodine Tartrate 4 MG CAP.SA PO (11:48)
[2021-11-21] MEDS: Propranolol 10 MG Tablet PO ×2 (11:49→21:25)
[2021-11-21] MEDS: Lisinopril 5 MG Tablet PO (11:49)
[2021-11-21 13:21] LABS: Bedside Glucose 86 mg/dL (74-106)
[2021-11-21] MEDS: Furosemide 20 MG Tablet PO (17:31)
[2021-11-21] MEDS: traZODone 100 MG Tablet PO (21:24)
[2021-11-21] MEDS: Atorvastatin Calcium 80 MG Tablet PO (21:24)
[2021-11-22 03:44] VITALS: BP 103/57; PULSE 73; RESP 16; TEMP 36.6; O2SAT 94
[2021-11-22 05:59] LABS: Absolute Lymphocyte Count 2.92 X10^3/uL (0.83-4.51); Absolute Neutrophil Count 5.9 X10^3/uL (2.0-7.7); Basophil# 0.07 X10^3/uL; Basophil% 0.7 % (0-1); Eosinophil# 0.27 X10^3/uL; Eosinophils% 2.6 % (0-5); Hemoglobin 11.1 g/dL (12.0-15.0); Lymphocyte # 2.92 X10^3/ul (0.83-4.51); Lymphocyte % 27.8 % (19-41); Mean Corp Hgb Conc 32.6 g/dL (32-36); Mean Corpuscular Hgb 29.4 pg (27.0-32.0); Mean Corpuscular Volume 90.2 fL (81-99); Mean Platelet Vol. 10.4 fl (6.2-12.0); Monocyte# 1.28 X10^3/uL; Monocyte% 12.2 % (0-10); NRBC Flagged by Analyzer 0 % (0-5); Neutrophil # 5.86 X10^3/uL (2.7-7.7); Neutrophil % 55.8 % (47-70); Platelet Count 254 K/mm3 (150-450); RBC Distribution Width CV 13.3 % (11.6-14.6); Red Blood Count 3.77 M/mm3 (4.2-5.4); White Blood Count 10.5 K/mm3 (4.4-11.0)
[2021-11-22 06:23] LABS: Anion Gap 7 (5-15); BUN 12 mg/dL (7-18); Calcium,Total 8.4 mg/dL (8.5-10.1); Chloride 110 mmol/L (98-107); EST Glomerular Filtration Rate 53 mL/min (>60); Est Glom Filt Rate - Afr Amer 64 mL/min (>60); Estimated Creatinine Clearance 47.03 ml/min; Glucose 75 mg/dL (74-106); Potassium 3.7 mmol/L (3.5-5.1); Sodium Level 141 mmol/L (136-145)
[2021-11-22 07:47] VITALS: BP 96/59; PULSE 69; RESP 16; TEMP 36.7; O2SAT 98
[2021-11-22] MEDS: Furosemide 40 MG Tablet PO (07:49)
[2021-11-22] MEDS: Glimepiride 2 MG Tablet PO (07:49)
[2021-11-22] MEDS: Tolterodine Tartrate 4 MG CAP.SA PO (07:49)
--- NOTE | 2021-11-22 08:57 | WOUNDNOTE ---
wound photo: left plantar foot
--- NOTE | 2021-11-22 08:59 | WOUNDNOTE ---
wound photo: left heel
--- NOTE | 2021-11-22 10:20 | CASEMGMT ---
RN CM Face to Face with patient for initial transition planning/care coordination assessment. RN CM introduced self and role at [facility]. Patient lying in bed, alert and oriented. Patient willing to participate in assessment and is able to answer all questions appropriately. Care providers, pharmacy, and demographics verified. Patient wishes to discharge home, denies need for home health at this time. Patient states she has no further needs or concerns at this time. CM to follow for discharge planning needs that may arise. PCP: Vazquez Specialists: Isauro, urologist; Patricia extruder operator; Preferred Pharmacy: [facility] Prescription Benefit: yes Living Will/HPOA: none LNOK: Living Arrangements: Patient lives with in a 2 story home with bed and bath on first floor. Patient states she is independent at home. Transportation: DME/HHC: Patient states she has a shower chair, cane, walker, wheelchair at home. Patient states she was recently at [facility] 10/07-10/28/21. Disposition Plan: Patient to discharge home with family support and follow-up plans in place. Kati SANDERS, RN, CM
--- NOTE | 2021-11-22 11:07 | DCINST_ITS ---
Discharge Instructions Diet Discharge Diet: Low fat / Low cholesterol and Carb Control Diet Activity Discharge Activity: Return to Normal Activity Dressing / Incision Call your doctor if you observe: Fever of 101 or Higher, Shortness of breath, Dizziness, Fainting spells, Swelling in the ankles, Chest pain and Increased palpitations (irregular heartbeat) Follow Up Care Test Results: Test results from this visit will be discussed in further detail at your follow- up appointment, if applicable. Discharge Plan Admission Admit Date/Time: 11/21/21 01:31 Attending Provider: Too Hendricks Primary Care Provider: Will Shukla Consulting Providers: Rigo Encarnacion Discharge Orders/Prescriptions Prescriptions: New amoxicillin-pot clavulanate 875-125 mg tablet 1 tab PO BID Qty: 14 0RF Continued Lantus Solostar U-100 Insulin 100 unit/mL (3 mL) insulin pen 33 unit SC QHS insulin aspart (niacinamide) 100 unit/mL (3 mL) insulin pen 0 - 100 ml subcut PRN PRN (Reason: Hyperglycemia) Label Comments: Inject 8-18 Units subcutaneously three times daily before meals. (Includes SS # 2 QAC -> Pt. aware of details.) MAX TDD = 55 UNITS / DAY. E1 Rx Instructions: 15 PLUS SLIDING SCALE. atorvastatin 80 mg tablet 80 mg PO DAILY Label Comments: Take 1 tablet by mouth once daily. lisinopril 5 mg tablet 5 mg PO DAILY Qty: 90 3RF (DME) pen needle, diabetic [BD Ultra-Fine Hope Pen Needle] 32 gauge x 5/32 needle See Rx Instructions .ROUTE .MEDSUPPLY Qty: 400 6RF Rx Instructions: 4x/day glimepiride 2 mg tablet 2 mg PO BID Qty: 180 3RF furosemide 20 MG tablet 20 mg PO DAILY@1700 Rx Instructions: 20 mg in the evening furosemide 40 MG tablet 40 mg PO BREAKFAST oxybutynin chloride 15 mg tablet extended release 24hr 15 mg PO DAILY propranolol 10 MG tablet 10 mg PO BID acetaminophen 500 MG tablet 1,000 mg PO TID PRN PRN (Reason: Pain Or Fever) trazodone 100 mg tablet 100 mg PO QHS Label Comments: Take 1 tablet by mouth daily at bedtime. ondansetron 4 mg tablet,disintegrating 4 mg PO Q6H PRN (Reason: nausea and vomiting) Qty: 10 0RF phenazopyridine [Pyridium] 200 MG tablet 200 mg PO BID PRN PRN (Reason: Pain) Discontinued doxycycline monohydrate 100 mg tablet 100 mg PO BID 10 Days Qty: 20 0RF Referrals / Follow Up: Will Shukla MD [Primary Care Provider] - Within 1 Week Gaurav Gomez DPM [STAFF PHYSICIAN] - Within 2 Weeks Disposition Disposition (needs filled in before D/C Order can be placed): Home, Self Care
--- NOTE | 2021-11-22 11:15 | PCM.DC.SUM ---
Providers Date of Admission: 11/21/21 Primary Care Physician: Dr. Will Shukla MD Consultations 11/21/21 02:08 Consult: Onc/Wound/keyboarding teacher Routine Comment: Reason For Visit: LEFT FOOT CELLULITIS Diagnosis Discharge Diagnosis (1) Cellulitis: Status: Acute Code(s): L03.90 - Cellulitis, unspecified Qualifiers: Site of cellulitis: extremity Site of cellulitis of extremity: lower extremity Laterality: left Qualified Code(s): L03.116 - Cellulitis of left lower limb Medications at Discharge Home Medications furosemide 20 mg tablet 20 mg PO DAILY@1700 fluid 08/28/18 furosemide 40 mg tablet 40 mg PO BREAKFAST fluid 04/05/19 insulin glargine 100 unit/mL (3 mL) subcutaneous pen (Lantus Solostar U-100 Insulin) 33 unit subcut QHS dm 11/01/19 oxybutynin chloride 15 mg tablet,extended release 24 hr 15 mg PO DAILY bladder 11/12/19 propranolol 10 mg tablet 10 mg PO BID heart 01/13/20 acetaminophen 500 mg tablet 1,000 mg PO TID PRN PRN Pain Or Fever 02/12/20 trazodone 100 mg tablet 100 mg PO QHS 01/19/21 atorvastatin 80 mg tablet 80 mg PO DAILY 01/29/21 insulin aspart (niacinamide)(U-100) 100 unit/mL(3 mL) subcutaneous pen 0 - 100 ml subcut PRN PRN Hyperglycemia 01/29/21 lisinopril 5 mg tablet 5 mg PO DAILY #90 tabs 01/29/21 pen needle, diabetic 32 gauge x 5/32 (BD Ultra-Fine Hope Pen Needle) #400 ea 03/05/21 glimepiride 2 mg tablet 2 mg PO BID #180 tabs 03/31/21 ondansetron 4 mg disintegrating tablet 4 mg PO Q6H PRN nausea and vomiting #10 tabs 08/20/21 phenazopyridine 200 mg tablet (Pyridium) 200 mg PO BID PRN PRN Pain 11/20/21 amoxicillin 875 mg-potassium clavulanate 125 mg tablet 1 tab PO BID #14 tabs 11/22/21 Hospital Course Operations None Procedures None Summary of Care Provided Minutes Spent on Discharge: 40 Hospital Course: Per HPI: HEBER BAILON, is a 41 F who presents presents with pain in her left foot extending up into her right leg, malaise and fevers.? Patient was seen on the in the emergency room diagnosed with a urinary tract infection and with cephalexin.? Patient was taken that but started feeling sick and started developing pain in her foot.? 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 Patient was concerned because she has had a history of osteomyelitis requiring amputation of part of her left great toe as well as a metatarsal in her left 5th.? Patient underwent infectious work-up here that was unremarkable.? X-ray shows postsurgical changes but no clear evidence of osteomyelitis. Hospital Course: 1. Left foot cellulitis/type 2 diabetes/history of spina bifida?41-year-old female who presents to the hospital with left lower extremity cellulitis. She does have some superficial ulcers on her foot and there is some concern for osteomyelitis so an MRI was obtained which was negative for any osteo-. She is improving on her Zosyn and vancomycin therefore she will be discharged on amoxicillin. She does have an allergy to Rocephin however she has received both Zosyn and amoxicillin in the past without issue. I do recommend that she follow-up with her PCP in 3 to 5 days as well as her electrolysis investigator for foot wound evaluation and outpatient treatment and management. Also that way she might be able to extend antibiotic course if her outpatient electrolysis investigator thinks that prudent. I discussed with her the plan for discharge today and she expressed understanding of the risk benefits of going home and would like to go home today. She is feeling much better than when she came in. No change to her outpatient home medications, other than holding her home Lasix for couple of days secondary to a slight bump in her creatinine from 0.8 on admission to 1.2 today. Would recommend outpatient BMP when she sees her PCP. Holding her Lasix was discussed directly with her and she expressed understanding. She improved faster than anticipated. Physical Exam Const alert, oriented x3 and no apparent distress General Appearance: cooperative HEENT normocephalic and moist oral mucous membranes Eyes PERRL, EOMs intact bilaterally and conjunctivae normal Neck supple and no JVD Resp normal respiratory effort, no retractions, no use of accessory muscles and clear to auscultation bilaterally Auscultation: Negative for crackles, rales, rhonchi or wheezes Cardio regular rate, regular rhythm, S1 normal heart sound, S2 normal heart sound and no murmurs GI soft to palpation, non-tender and non-distended; Negative for hepatosplenomegaly Extremity General Extremity: edema Skin Wound Narrative: Left cellulitis with multiple superficial wounds. Currently wrapped Neuro no focal motor deficits and no sensory deficits noted Psych affect normal Appearance: appropriate Weight / BMI Weight Weight: 204 lb 2.369 oz Body Mass Index (BMI) 38.5 ABG / Lab / Microbiology Data Result Diagrams: 11/22/21 05:45 11/22/21 05:45 Laboratory: Laboratory Results - last 24 hr 11/21/21 13:11: POC Glucose 86 11/22/21 05:45: WBC 10.5, RBC 3.77 L, Hgb 11.1 L, Hct 34.0 L, MCV 90.2, MCH 29.4, MCHC 32.6, RDW Std Deviation 44.0 H, RDW Coeff of Claude 13.3, Plt Count 254, MPV 10.4, Immature Gran % (Auto) 0.900, Neut % (Auto) 55.8, Lymph % (Auto) 27.8, [place] % (Auto) 12.2 H, Eos % (Auto) 2.6, Baso % (Auto) 0.7, Absolute Neuts (auto) 5.9, Absolute Lymphs (auto) 2.92, Nucleated RBC % 0 11/22/21 05:45: Sodium 141, Potassium 3.7, Chloride 110 H, Carbon Dioxide 24.0, Anion Gap 7, BUN 12, Creatinine 1.20 H, Estim Creat Clear Calc 47.03, Est GFR (MDRD) Af Amer 64, Est GFR (MDRD) Non-Af 53 L, BUN/Creatinine Ratio 10.0, Glucose 75, Calcium 8.4 L Microbiology: Microbiology 11/20/21 02:55 Wound - Left Foot Gram Stain - Final 11/20/21 02:55 Wound - Left Foot Wound Culture - Preliminary Beta streptococcus 11/20/21 23:25 Urine, Catheterized Urine Culture - Preliminary Mixed Gram Pos & Gram Neg Org 11/20/21 23:38 Nasal Secretion SARS-CoV-2 Antigen (Rapid) - Final Radiography Diagnostic Testing: Radiology Impression Lower Extremity MRI 11/21/21 02:08 IMPRESSION: Cellulitis with ulcer plantar to the first metatarsophalangeal joint but no abscess or osteomyelitis. Electronically Signed: Severino Rand MD at 18:59 EDT , D/C Instructions Discharge Diet: Low fat / Low cholesterol and Carb Control Diet Call your doctor if you observe: Fever of 101 or Higher, Shortness of breath, Dizziness, Fainting spells, Swelling in the ankles, Chest pain and Increased palpitations (irregular heartbeat) Meaningful Use Info Meaningful Use Diagnoses (Choose all that apply): None applicable Discharge Plan Admission Admit Date/Time: 11/21/21 01:31 Attending Provider: Too Hendricks Primary Care Provider: Will Shukla Consulting Providers: Rigo Encarnacion Discharge Orders/Prescriptions Prescriptions: New amoxicillin-pot clavulanate 875-125 mg tablet 1 tab PO BID Qty: 14 0RF Continued Lantus Solostar U-100 Insulin 100 unit/mL (3 mL) insulin pen 33 unit SC QHS insulin aspart (niacinamide) 100 unit/mL (3 mL) insulin pen 0 - 100 ml subcut PRN PRN (Reason: Hyperglycemia) Label Comments: Inject 8-18 Units subcutaneously three times daily before meals. (Includes SS # 2 QAC -> Pt. aware of details.) MAX TDD = 55 UNITS / DAY. E1 Rx Instructions: 15 PLUS SLIDING SCALE. atorvastatin 80 mg tablet 80 mg PO DAILY Label Comments: Take 1 tablet by mouth once daily. lisinopril 5 mg tablet 5 mg PO DAILY Qty: 90 3RF (DME) pen needle, diabetic [BD Ultra-Fine Hope Pen Needle] 32 gauge x 5/32 needle See Rx Instructions .ROUTE .MEDSUPPLY Qty: 400 6RF Rx Instructions: 4x/day glimepiride 2 mg tablet 2 mg PO BID Qty: 180 3RF oxybutynin chloride 15 mg tablet extended release 24hr 15 mg PO DAILY propranolol 10 MG tablet 10 mg PO BID acetaminophen 500 MG tablet 1,000 mg PO TID PRN PRN (Reason: Pain Or Fever) trazodone 100 mg tablet 100 mg PO QHS Label Comments: Take 1 tablet by mouth daily at bedtime. ondansetron 4 mg tablet,disintegrating 4 mg PO Q6H PRN (Reason: nausea and vomiting) Qty: 10 0RF phenazopyridine [Pyridium] 200 MG tablet 200 mg PO BID PRN PRN (Reason: Pain) Held furosemide 20 MG tablet 20 mg PO DAILY@1700 Hold Instructions: Resume on 11/24/21. Rx Instructions: 20 mg in the evening furosemide 40 MG tablet 40 mg PO BREAKFAST Hold Instructions: Resume on 11/24/21. Discontinued doxycycline monohydrate 100 mg tablet 100 mg PO BID 10 Days Qty: 20 0RF Referrals / Follow Up: Will Shukla MD [Primary Care Provider] - Within 1 Week Gaurav Gomez DPM [STAFF PHYSICIAN] - Within 2 Weeks Disposition Disposition (needs filled in before D/C Order can be placed): Home, Self Care Charges/Coding Visit Charges Inpatient E&M: 20982 Disch Hosp
[2021-11-22 13:54] VITALS: BP 109/74; PULSE 65; RESP 16; TEMP 36.8; O2SAT 96
== END 2021-11-22 16:04 | disposition home or self-care (01) | DRG 638 ==
LOC: ED 11-21 01:12 → MS3 11-21 01:41
PROVIDERS: Emergency Provider Student in an Organized Health Care Education/Training Program; PCP Family Medicine; Visit Provider Family Medicine
DX: E11.628 Type 2 diabetes mellitus with other skin complications (principal); L03.116 Cellulitis of left lower limb; L97.421 Non-pressure chronic ulcer of left heel and midfoot limited to breakdown of skin; E11.621 Type 2 diabetes mellitus with foot ulcer; E11.42 Type 2 diabetes mellitus with diabetic polyneuropathy; Q05.9 Spina bifida, unspecified; Z79.4 Long term (current) use of insulin; E11.65 Type 2 diabetes mellitus with hyperglycemia; Z93.3 Colostomy status; I10 Essential (primary) hypertension; F34.1 Dysthymic disorder; F41.0 Panic disorder [episodic paroxysmal anxiety]; G89.29 Other chronic pain; Z87.440 Personal history of urinary (tract) infections
CPT/HCPCS: 36415; 71045; 73630; 73718; 80048; 80053; 81001; 82962; 83605; 84484; 85025; 85610; 85652; 85730; 86140; 87040; 87070; 87077; 87086; 87088; 87186; 87205; 87640; 87811; 93005; 97161; 97166; 99285; J7040; A4216; J2405

== ENCOUNTER 2021-11-26 12:43 | Emergency (ER) | payer MEDICARE, MEDICAID, SELFPAY ==
[2021-11-26 12:44] VITALS: BP 140/93; PULSE 87; RESP 16; TEMP 36.3; O2SAT 98; BMI 37.5
--- NOTE | 2021-11-26 13:30 | CT_ITS ---
STUDY: CT ABDOMEN AND PELVIS WITH CONTRAST REASON FOR EXAM: Female, 41 years old. PAIN, INDWELLING CATH AND COLOSTOMY, SPINA BIFIDA RADIATION DOSAGE (If Supplied By Facility): CTDIvol = ( 9.78 ) mGy, DLP = ( 656.98 ) mGycm TECHNIQUE: Transaxial images were obtained from the dome of the diaphragm to the symphysis pubis without oral contrast. IV 75mL Isovue-300 was administered. Sagittal and coronal images were reconstructed. Individualized dose optimization techniques were used for this CT. COMPARISON: Comparison is made with prior study dated 11/05/2021. FINDINGS: Tiny calcified granuloma in the right lower lobe. The visualized portions of the heart are within normal limits. Normal liver. The patient is status post cholecystectomy. Normal spleen. Normal pancreas. Normal bilateral adrenal glands. Mild degree of atrophy and lobular contour of the right kidney. Nonobstructive 4 mm calculus in the lower pole calyx of the right kidney. Normal left kidney. Normal visualized stomach. Normal small intestine. A colostomy bag is seen in the left mid abdomen. Scattered sigmoid diverticula. Surgical anastomosis is seen at the level of the rectosigmoid colon. The appendix is visualized and appears normal. Normal abdominal aorta. Normal inferior vena cava. Normal retroperitoneum. A suprapubic catheter is seen within the urinary bladder. The urinary bladder is empty. Diffuse thickening of the bladder wall. There is evidence of prior anterior ventral hernia repair with a mesh. There is evidence of spina bifida. CT/Abdomen/Pelvis W IV Cont ONLY IMPRESSION: Colostomy in the anterior left mid abdomen. There has been essentially no change as compared to prior study. Electronically Signed: Stephan Sood MD at 15:12 EDT ,
--- NOTE | 2021-11-26 13:30 | CM.ED ---
Social Work Note Reason for Referral: Pt has ED Care Plan SW updated MD Barcenas that pt has ED Care Plan. Kati Martinez FRUIT CUTTER, EDUCATION SPECIALIST
--- NOTE | 2021-11-26 13:32 | ED.VIS.GI ---
HPI HPI - GI History of Present Illness Chief Complaint: Abd Pain Detail of Chief Complaint: Decreased output from her colostomy. Informant: patient Abdominal Pain/Flank Pain Onset: Days Context: Gradual Onset Timing: Continuous Location: Epigastric Current Severity: Mild Maximum Severity: Mild Worsened by: Nothing Nausea/Vomiting/Emesis GI Symptom: Negative for Nausea or Vomiting Diarrhea/Melena/Hematochezia GI Symptom: Negative for Diarrhea, Melena or Hematochezia Associated Symptoms Associated Symptoms: Negative for Dysuria, Frequency, Hematuria or Urgency Narrative Narrative: 41-year-old female extensive past medical history including anxiety, depression, multiple abdominal surgeries including cholecystectomy and hernia repair. She has a history of spina bifida. She has a colostomy bag. Primary reason for visit today is she has had decreased fecal material from her colostomy. She is initially small pellets. She complains of mild upper abdominal discomfort. She has a chronic suprapubic indwelling Morales catheter. She recently was admitted to the hospital about a week ago for an infection in her left foot. Prior similar symptoms: Yes Recent Illness/Hospital[facility]: [facility] Medical History Anxiety and depression Arthritis Manley's palsy Cellulitis of left lower extremity Chronic back pain Chronic nausea Colostomy in place Constipation Delayed wound healing Diabetes mellitus, type II Diabetic polyneuropathy Diabetic ulcer of left heel with fat layer exposed DJD (degenerative joint disease) of thoracic spine Dysthymic disorder Essential hypertension Hematochezia History of kidney stones History of migraine Hydronephrosis of right kidney Hyperglycemia Hyperlipidemia Infection of bladder catheter Insomnia Lipomeningocele Lower extremity edema Morbid obesity with BMI of 40.0-44.9, adult Neurogenic bladder Neurogenic bowel Non-compliance Non-smoker Normochromic normocytic anemia Panic attacks PSVT (paroxysmal supraventricular tachycardia) Sepsis Sepsis Spina bifida aperta of lumbar spine Thyroid cyst Type 2 diabetes mellitus with diabetic polyneuropathy Ulcer of left heel and midfoot with fat layer exposed Uninodular goiter Urinary tract infection UTI (urinary tract infection) UTI (urinary tract infection) Weakness Home Medications furosemide 20 mg tablet 20 mg PO DAILY@1700 fluid 08/28/18 [History Last Taken 12/22/20] furosemide 40 mg tablet 40 mg PO BREAKFAST fluid 04/05/19 [History Last Taken 12/22/20] insulin glargine 100 unit/mL (3 mL) subcutaneous pen (Lantus Solostar U-100 Insulin) 33 unit subcut QHS dm 11/01/19 [History Last Taken 12/21/20] oxybutynin chloride 15 mg tablet,extended release 24 hr 15 mg PO DAILY bladder 11/12/19 [History Last Taken 12/22/20] propranolol 10 mg tablet 10 mg PO BID heart 01/13/20 [History Last Taken 12/22/20] acetaminophen 500 mg tablet 1,000 mg PO TID PRN PRN Pain Or Fever 02/12/20 [History Last Taken 09/24/20 19:24] trazodone 100 mg tablet 100 mg PO QHS 01/19/21 [History Last Taken Unknown] atorvastatin 80 mg tablet 80 mg PO DAILY 01/29/21 [History Last Taken Unknown] insulin aspart (niacinamide)(U-100) 100 unit/mL(3 mL) subcutaneous pen 0 - 100 ml subcut PRN PRN Hyperglycemia 01/29/21 [History Last Taken Unknown] lisinopril 5 mg tablet 5 mg PO DAILY #90 tabs 01/29/21 [Rx Last Taken Unknown] pen needle, diabetic 32 gauge x 5/32 (BD Ultra-Fine Hope Pen Needle) #400 ea 03/05/21 [Rx Last Taken Unknown] glimepiride 2 mg tablet 2 mg PO BID #180 tabs 03/31/21 [Rx Last Taken Unknown] ondansetron 4 mg disintegrating tablet 4 mg PO Q6H PRN nausea and vomiting #10 tabs 08/20/21 [Rx Last Taken Unknown] phenazopyridine 200 mg tablet (Pyridium) 200 mg PO BID PRN PRN Pain 11/20/21 [History Last Taken Unknown] amoxicillin 875 mg-potassium clavulanate 125 mg tablet 1 tab PO BID #14 tabs 11/22/21 [Rx Last Taken Unknown] Allergy/AdvReac Type Severity Reaction Status Date / Time ceftriaxone [From Rocephin] Allergy Hives Verified 11/26/21 12:43 mushroom Allergy Anaphylaxis Verified 11/26/21 12:43 peanut Allergy Anaphylaxis Verified 11/26/21 12:43 fentanyl AdvReac Low blood Verified 11/26/21 12:43 pressure Gadolinium-MRI Contrast AdvReac Vomiting Verified 11/26/21 12:43 Medium Latex, Natural Rubber AdvReac Rash Verified 11/26/21 12:43 Family History Mother CVA (cerebral vascular accident) Thyroid disorder Diabetes Hypertension Heart disease Hyperlipidemia Myocardial infarction, Onset Age: 54 mother had diabetes Father Cancer skin Grandmother Cancer liver Other Arthritis Skin cancer Surgical History history insertion suprapubic catheter History of cholecystectomy History of dilation and curettage History of spinal surgery Hx of foot surgery Hx of ventral hernia repair S/P thyroid biopsy (~11/06/19) Status post gastric surgery Social History household members: significant other Smoking Status: Never smoker alcohol intake: current substance use type: does not use ROS ROS ED ROS Narrative Abdominal pain. Review of Systems ROS Unobtainable: Denies due to encephalopathy Constitutional Constitutional ED: Denies chills ENT ENT ED: Denies ear pain Cardiovascular Cardiovascular: Denies chest pain Respiratory/Chest Respiratory/Chest: Denies cough Gastrointestinal Gastrointestinal: Reports abdominal pain and constipation; Denies diarrhea, melena, nausea or vomiting Genitourinary Genitourinary ED: Denies dysuria Musculoskeletal Musculoskeletal: Denies arthralgias Integumentary Denies abscess Neurologic Neurologic: Denies headache(s) Psychiatric Psychiatric: Denies anxiety Endocrine Endocrinology: Denies polydipsia Hematologic/Lymphatic Hematologic/Lymphatic: Denies easy bleeding Allergic/Immunologic Allergic/Immunologic ED: Denies mouth swelling EXAM Physical Exam Narrative Exam Narrative: 41-year-old female no acute distress. Vital signs stable afebrile. H EENT exam unremarkable. Moist remembers. Neck nontender. Lungs are clear. Heart regular rhythm rate about 85 no murmur. Abdomen soft. Nondistended. Normal bowel sounds. No peritoneal signs. Colostomy left upper abdomen. No current hernia or mass. Clinically does not appear to be obstructed. Tenderness in epigastric region. No rebound, guarding rigidity. Moving all 4 extremities. Neurologically she is awake and alert. Const Vital Signs: 11/26/21 12:44 11/26/21 15:04 Temperature 97.4 F L Temperature Source Temporal Pulse Rate 87 89 Respiratory Rate 16 16 Blood Pressure 140/93 H 126/80 H Blood Pressure Mean 108 95 Pulse Ox 98 99 Oxygen Delivery Method Room Air Room Air Positive well nourished, well developed and obese; Negative for cachectic, contractures or unkempt General Appearance ED: well developed; Negative for unkempt, cachectic or contractures Nutritional Appearance: obese; Negative for cachectic HEENT Reports moist mucous membranes; Denies dry mucous membranes normocephalic and atraumatic; Negative for trauma or tenderness Mouth ED: No dry mucous membranes Mouth: No dry mucous membranes Eyes PERRL and EOMs intact bilaterally General Eye ED: Negative for pale conjunctiva or scleral icterus Neck no lymphadenopathy, supple and no JVD General: Negative for tenderness Lymph Lymphatic: Negative for other Resp normal respiratory effort and clear to auscultation bilaterally Effort and Inspection: respiratory distress Auscultation: Negative for rales, rhonchi, wheezes or diminished lung sounds Cardio regular rate, regular rhythm, S1 normal heart sound, S2 normal heart sound and no murmurs Rate: Negative for bradycardia or tachycardic Rhythm: Negative for abnormal rhythm GI non-distended and no masses; Negative for non-tender Inspection: Negative for abdominal distention Auscultation: normoactive bowel sounds; Negative for hyperactive bowel sounds or hypoactive bowel sounds Palpation: soft and tender; Negative for guarding, rigid, hepatomegaly, splenomegaly, hernia, mass, pulsatile mass or rebound tenderness present Back/Spine no CVA tenderness General Back: Negative for CVA tenderness Extremity full ROM General Extremety ED: Negative for edema General Extremity: Negative for edema Neuro moves all extremities Sensorium / Orientation: alert, oriented to person, oriented to place and oriented to time Psych mental status grossly normal and thought process normal Appearance: Negative for unkempt Skin no wounds Trauma: Negative for abrasion MDM MDM MDM Narrative Medical decision making narrative: 41-year-old female extensive past medical history. Concern for bowel obstruction even though clinically I do not think she has an obstruction. CAT scan labs are pending. She does have a care plan at this time will not be given pain medications. Clinically not indicated. Repeat exam patient is doing well at 3:25 PM. Abdomen is benign. I went over her test results with her. She will need her kidney function rechecked next week. She is encouraged to take plenty of fluids. Lab Data Attestation: I reviewed the patient's lab results. Lab results narrative: CBC showed a white count 13.9. H&H of 12 and 37. Electrolytes show a gap of 11 BUN and creatinine 25 and 2.53. She has a history of chronic kidney disease. Glucose 155. Liver enzymes normal. Lipase normal at 91. CAT scan shows no acute abnormality. As read by the radiologist. Labs: Laboratory Results - last 24 hr 11/26/21 11/26/21 13:05 13:05 WBC 13.9 H RBC 4.17 L Hgb 12.3 Hct 37.1 MCV 89.0 MCH 29.5 MCHC 33.2 RDW Std Deviation 42.3 RDW Coeff of Claude 12.9 Plt Count 272 MPV 11.0 Immature Gran % (Auto) 0.900 Neut % (Auto) 74.1 H Lymph % (Auto) 14.3 L [place] % (Auto) 9.7 Eos % (Auto) 0.6 Baso % (Auto) 0.4 Absolute Neuts (auto) 10.3 H Absolute Lymphs (auto) 1.99 Nucleated RBC % 0 Sodium 136 Potassium 3.9 Chloride 104 Carbon Dioxide 21.0 Anion Gap 11 BUN 25 H Creatinine 2.53 H Estim Creat Clear Calc 22.30 Est GFR (MDRD) Af Amer 27 L Est GFR (MDRD) Non-Af 22 L BUN/Creatinine Ratio 9.9 L Glucose 155 H Calcium 9.4 Total Bilirubin 0.40 AST 16 ALT 29 Alkaline Phosphatase 86 Total Protein 8.2 Albumin 3.4 Globulin 4.8 H Albumin/Globulin Ratio 0.7 L Lipase 91 Radiography Diagnostic Testing: Clinical Impression(s) from Imaging Studies Abdomen/Pelvis CT 11/26/21 13:30 IMPRESSION: Colostomy in the anterior left mid abdomen. There has been essentially no change as compared to prior study. Electronically Signed: Stephan Sood MD at 15:12 EDT , Discharge Plan Triage Chief Complaint: Abd Pain ED Provider: Kevin Barcenas Dx/Rx/DC Orders Clinical Impression: Abdominal pain, Acute renal insufficiency, History of diabetes mellitus Instructions: Abdominal Pain Prescriptions: No Action Lantus Solostar U-100 Insulin 100 unit/mL (3 mL) insulin pen 33 unit SC QHS insulin aspart (niacinamide) 100 unit/mL (3 mL) insulin pen 0 - 100 ml subcut PRN PRN (Reason: Hyperglycemia) Label Comments: Inject 8-18 Units subcutaneously three times daily before meals. (Includes SS # 2 QAC -> Pt. aware of details.) MAX TDD = 55 UNITS / DAY. E1 Rx Instructions: 15 PLUS SLIDING SCALE. atorvastatin 80 mg tablet 80 mg PO DAILY Label Comments: Take 1 tablet by mouth once daily. lisinopril 5 mg tablet 5 mg PO DAILY Qty: 90 3RF (DME) pen needle, diabetic [BD Ultra-Fine Hope Pen Needle] 32 gauge x 5/32 needle See Rx Instructions .ROUTE .MEDSUPPLY Qty: 400 6RF Rx Instructions: 4x/day glimepiride 2 mg tablet 2 mg PO BID Qty: 180 3RF furosemide 20 MG tablet 20 mg PO DAILY@1700 Hold Instructions: Resume on 11/24/21. Rx Instructions: 20 mg in the evening furosemide 40 MG tablet 40 mg PO BREAKFAST Hold Instructions: Resume on 11/24/21. oxybutynin chloride 15 mg tablet extended release 24hr 15 mg PO DAILY propranolol 10 MG tablet 10 mg PO BID acetaminophen 500 MG tablet 1,000 mg PO TID PRN PRN (Reason: Pain Or Fever) trazodone 100 mg tablet 100 mg PO QHS Label Comments: Take 1 tablet by mouth daily at bedtime. ondansetron 4 mg tablet,disintegrating 4 mg PO Q6H PRN (Reason: nausea and vomiting) Qty: 10 0RF phenazopyridine [Pyridium] 200 MG tablet 200 mg PO BID PRN PRN (Reason: Pain) amoxicillin-pot clavulanate 875-125 mg tablet 1 tab PO BID Qty: 14 0RF Primary Care Provider: Will Shukla Referrals: Will Shukla MD [Primary Care Provider] - 5-7 Days Activity Restrictions/Additional Instructions: Plenty of fluids and rest. Use a stool softener. Or magnesium citrate to help you with the constipation. You need to make sure you are drinking plenty of fluids. Your kidney function was worse today. That will need to be rechecked next week. Your creatinine today was 2.53 previously it was 1.2. Disposition Disposition: Home, Self Care
[2021-11-26 13:52] LABS: Absolute Lymphocyte Count 1.99 X10^3/uL (0.83-4.51); Absolute Neutrophil Count 10.3 X10^3/uL (2.0-7.7); Basophil# 0.06 X10^3/uL; Basophil% 0.4 % (0-1); Eosinophil# 0.08 X10^3/uL; Eosinophils% 0.6 % (0-5); Hematocrit 37.1 % (37-47); Hemoglobin 12.3 g/dL (12.0-15.0); Lymphocyte # 1.99 X10^3/ul (0.83-4.51); Lymphocyte % 14.3 % (19-41); Mean Corp Hgb Conc 33.2 g/dL (32-36); Mean Corpuscular Hgb 29.5 pg (27.0-32.0); Monocyte# 1.35 X10^3/uL; Monocyte% 9.7 % (0-10); NRBC Flagged by Analyzer 0 % (0-5); Neutrophil # 10.33 X10^3/uL (2.7-7.7); Neutrophil % 74.1 % (47-70); Platelet Count 272 K/mm3 (150-450); RBC Distribution Width CV 12.9 % (11.6-14.6); RBC Distribution Width SD 42.3 fl (35.1-43.9); Red Blood Count 4.17 M/mm3 (4.2-5.4); White Blood Count 13.9 K/mm3 (4.4-11.0)
[2021-11-26 14:08] LABS: ALB/GLOB Ratio 0.7 RATIO (0.9-2.4); AST(SGOT) 16 U/L (15-37); Alanine Aminotransfer ALT/SGPT 29 U/L (13-56); Albumin, Serum 3.4 g/dL (3.2-5.0); Alkaline Phosphatase 86 U/L (45-117); Anion Gap 11 (5-15); BUN 25 mg/dL (7-18); BUN/Creat Ratio 9.9 RATIO (10-20); Calcium,Total 9.4 mg/dL (8.5-10.1); Chloride 104 mmol/L (98-107); Creatinine, Serum 2.53 mg/dL (0.55-1.02); EST Glomerular Filtration Rate 22 mL/min (>60); Est Glom Filt Rate - Afr Amer 27 mL/min (>60); Globulin 4.8 g/dL (2.2-4.2); Glucose 155 mg/dL (74-106); Lipase 91 U/L (73-393); Potassium 3.9 mmol/L (3.5-5.1); Protein, Total 8.2 g/dL (6.4-8.2); Sodium Level 136 mmol/L (136-145)
[2021-11-26] MEDS: 0.9% Normal Saline 1,000 ML 999 ML IV (14:25)
[2021-11-26 15:04] VITALS: BP 126/80; PULSE 89; RESP 16; O2SAT 99
== END 2021-11-26 15:48 | disposition home or self-care (01) ==
PROVIDERS: Emergency Provider Emergency Medicine; PCP Family Medicine; Visit Provider Emergency Medicine
DX: R10.9 Unspecified abdominal pain (principal); Z93.3 Colostomy status; E11.9 Type 2 diabetes mellitus without complications; M54.9 Dorsalgia, unspecified; N28.9 Disorder of kidney and ureter, unspecified; R11.2 Nausea with vomiting, unspecified; R19.7 Diarrhea, unspecified; I10 Essential (primary) hypertension; F41.9 Anxiety disorder, unspecified; E78.5 Hyperlipidemia, unspecified
CPT/HCPCS: 74177; 80053; 83690; 85025; 96360; 99283; J7030; Q9967; A4216

== ENCOUNTER → 2022-01-13 | Outpatient (CLI) | payer MEDICARE, MEDICAID, SELFPAY ==
[2022-01-13 13:41] LABS: ALB/GLOB Ratio 0.7 RATIO (0.9-2.4); AST(SGOT) 24 U/L (15-37); Alanine Aminotransfer ALT/SGPT 41 U/L (13-56); Albumin, Serum 3.5 g/dL (3.2-5.0); Alkaline Phosphatase 93 U/L (45-117); Anion Gap 6 (5-15); BUN 13 mg/dL (7-18); BUN/Creat Ratio 12.5 RATIO (10-20); Calcium,Total 9.8 mg/dL (8.5-10.1); Chloride 106 mmol/L (98-107); Creatinine, Serum 1.04 mg/dL (0.55-1.02); EST Glomerular Filtration Rate 62 mL/min (>60); Est Glom Filt Rate - Afr Amer 75 mL/min (>60); Globulin 4.9 g/dL (2.2-4.2); Glucose 265 mg/dL (74-106); Microalbumin:Creatinine Ratio 180.3 mg/g CRE (<30 mg/g CRE); Potassium 4.1 mmol/L (3.5-5.1); Protein, Total 8.4 g/dL (6.4-8.2); Sodium Level 137 mmol/L (136-145)
== END | disposition home or self-care (01) ==
PROVIDERS: PCP Family Medicine; Visit Provider Nurse Practitioner Family
DX: E11.9 Type 2 diabetes mellitus without complications (principal)
CPT/HCPCS: 36415; 80053; 82043; 82570

== ENCOUNTER 2022-01-20 00:14 | Inpatient (IN) | payer MEDICARE, MEDICAID, SELFPAY ==
[2022-01-20] VITALS (8 sets, daily range): BP systolic 95–134; BP diastolic 61–77; PULSE 70–102; RESP 16–22; TEMP 36.6–37.6; O2SAT 96–99; BMI 37.6; BMI 36.8
--- NOTE | 2022-01-20 00:40 | EKG12_ITS ---
Test Reason : DYSRHYTHMIA Blood Pressure : / mmHG Vent. Rate : 100 BPM Atrial Rate : 100 BPM P-R Int : 134 ms QRS Dur : 076 ms QT Int : 358 ms P-R-T Axes : 018 025 021 degrees QTc Int : 461 ms Normal sinus rhythm Normal ECG Confirmed by ITZ FITZGERALD, ZACHARY ([id number]), news video editor WILBUR FARRAR ([id number]) on 01/20/2022 1:30:34 PM Referred By: SANDRA Confirmed By:MADELEINE MOBLEY MD
--- NOTE | 2022-01-20 00:41 | RAD_ITS ---
STUDY: X-RAY - LEFT FOOT CLINICAL: Female, 41 years old. infection TECHNIQUE: 3 view(s) of the foot. 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 No radiographic evidence of osteomyelitis in the left foot. The selective left enthesopathy. Soft tissue ulcer on the plantar aspect of the heel. Diffuse soft tissue swelling. No radiopaque foreign body. Electronically Signed: Enzo Brunson MD at 2:19 EDT , RAD/Foot min 3 Views IMPRESSION: undefined
[2022-01-20 01:07] LABS: Absolute Lymphocyte Count 1.91 X10^3/uL (0.83-4.51); Absolute Neutrophil Count 12.3 X10^3/uL (2.0-7.7); Basophil# 0.04 X10^3/uL; Basophil% 0.3 % (0-1); Eosinophil# 0.16 X10^3/uL; Hematocrit 34.5 % (37-47); Hemoglobin 11.3 g/dL (12.0-15.0); Lymphocyte # 1.91 X10^3/ul (0.83-4.51); Lymphocyte % 12.3 % (19-41); Mean Corp Hgb Conc 32.8 g/dL (32-36); Mean Corpuscular Hgb 28.7 pg (27.0-32.0); Mean Corpuscular Volume 87.6 fL (81-99); Mean Platelet Vol. 10.5 fl (6.2-12.0); Monocyte# 1.01 X10^3/uL; Monocyte% 6.5 % (0-10); NRBC Flagged by Analyzer 0 % (0-5); Neutrophil # 12.29 X10^3/uL (2.7-7.7); Neutrophil % 79.1 % (47-70); Platelet Count 253 K/mm3 (150-450); RBC Distribution Width CV 13.7 % (11.6-14.6); RBC Distribution Width SD 43.8 fl (35.1-43.9); Red Blood Count 3.94 M/mm3 (4.2-5.4); White Blood Count 15.5 K/mm3 (4.4-11.0)
[2022-01-20 01:17] LABS: Partial Thromboplast Time 30.9 Seconds (24.1-36.2); Prothrombin Time (Protime)PT. 12.9 SECONDS (11.7-14.9)
--- NOTE | 2022-01-20 01:17 | EDS_ITS ---
HPI History of Present Illness Chief Complaint: Cellulitis Informant: patient Onset/Context/Timing Onset: Today Current Severity: Moderate Maximum Severity: Moderate Narrative Narrative: Patient presents secondary to cellulitis of her left lower extremity. She has 2 chronic wounds on the bottom of her left foot that she follows with Dr. Gomez for. Patient states this week she has not felt well. She is been lying in bed the last several days. Her significant other change the dressing on her foot tonight. He woke her late tonight because he noticed redness spreading up her leg. Patient reports subjective fever at home. [facility] Medical History Anxiety and depression Arthritis Manley's palsy Cellulitis of left lower extremity Chronic back pain Chronic nausea Colostomy in place Constipation Delayed wound healing Diabetes mellitus, type II Diabetic polyneuropathy Diabetic ulcer of left heel with fat layer exposed DJD (degenerative joint disease) of thoracic spine Dysthymic disorder Essential hypertension Hematochezia History of kidney stones History of migraine Hydronephrosis of right kidney Hyperglycemia Hyperlipidemia Infection of bladder catheter Insomnia Lipomeningocele Lower extremity edema Morbid obesity with BMI of 40.0-44.9, adult Neurogenic bladder Neurogenic bowel Non-compliance Non-smoker Normochromic normocytic anemia Panic attacks PSVT (paroxysmal supraventricular tachycardia) Sepsis Sepsis Spina bifida aperta of lumbar spine Thyroid cyst Type 2 diabetes mellitus with diabetic polyneuropathy Ulcer of left heel and midfoot with fat layer exposed Uninodular goiter Urinary tract infection UTI (urinary tract infection) UTI (urinary tract infection) Weakness Home Medications furosemide 20 mg tablet 20 mg PO DAILY@1700 fluid 08/28/18 [History Last Taken 12/22/20] furosemide 40 mg tablet 40 mg PO BREAKFAST fluid 04/05/19 [History Last Taken 12/22/20] insulin glargine 100 unit/mL (3 mL) subcutaneous pen (Lantus Solostar U-100 Insulin) 30 unit subcut QHS dm 11/01/19 [History Last Taken 12/21/20] oxybutynin chloride 15 mg tablet,extended release 24 hr 15 mg PO DAILY bladder 11/12/19 [History Last Taken 12/22/20] propranolol 10 mg tablet 10 mg PO BID heart 01/13/20 [History Last Taken 12/22/20] acetaminophen 500 mg tablet 1,000 mg PO TID PRN PRN Pain Or Fever 02/12/20 [History Last Taken 09/24/20 19:24] trazodone 100 mg tablet 100 mg PO QHS 01/19/21 [History Last Taken Unknown] atorvastatin 80 mg tablet 80 mg PO DAILY 01/29/21 [History Last Taken Unknown] insulin aspart (niacinamide)(U-100) 100 unit/mL(3 mL) subcutaneous pen 0 - 100 ml subcut PRN PRN Hyperglycemia 01/29/21 [History Last Taken Unknown] lisinopril 5 mg tablet 5 mg PO DAILY #90 tabs 01/29/21 [Rx Last Taken Unknown] pen needle, diabetic 32 gauge x 5/32 (BD Ultra-Fine Hope Pen Needle) #400 ea 03/05/21 [Rx Last Taken Unknown] glimepiride 2 mg tablet 2 mg PO BID #180 tabs 03/31/21 [Rx Last Taken Unknown] ondansetron 4 mg disintegrating tablet 4 mg PO Q6H PRN nausea and vomiting #10 tabs 08/20/21 [Rx Last Taken Unknown] phenazopyridine 200 mg tablet (Pyridium) 200 mg PO BID PRN PRN Pain 11/20/21 [History Last Taken Unknown] Allergy/AdvReac Type Severity Reaction Status Date / Time [facility]ri[facility] Allergy Hives Verified 01/13/22 11:30 mushroom Allergy Anaphylaxis Verified 01/13/22 11:30 peanut Allergy Anaphylaxis Verified 01/13/22 11:30 fentanyl AdvReac Low blood Verified 01/13/22 11:30 pressure Gadolinium-MRI Contrast AdvReac Vomiting Verified 01/13/22 11:30 Medium Latex, Natural Rubber AdvReac Rash Verified 01/13/22 11:30 vancomycin AdvReac Rash Verified 01/20/22 01:19 Family History Mother CVA (cerebral vascular accident) Thyroid disorder Diabetes Hypertension Heart disease Hyperlipidemia Myocardial infarction, Onset Age: 54 mother had diabetes Father Cancer skin Grandmother Cancer liver Other Arthritis Skin cancer Surgical History history insertion suprapubic catheter History of cholecystectomy History of dilation and curettage History of spinal surgery Hx of foot surgery Hx of ventral hernia repair S/P thyroid biopsy (~11/06/19) Status post gastric surgery Social History household members: significant other Smoking Status: Never smoker alcohol intake: current substance use type: does not use ROS ROS ED Constitutional Constitutional ED: Reports chills, fever(s) and subjective Eyes Eyes: Denies change in vision or discharge from eye(s) ENT ENT ED: Denies discharge from eye(s), rhinorrhea or sore throat Cardiovascular Cardiovascular: Denies chest pain or palpitations Respiratory/Chest Respiratory/Chest: Denies cough or dyspnea Gastrointestinal Gastrointestinal: Denies abdominal pain, diarrhea, nausea or vomiting Genitourinary Genitourinary ED: Denies difficulty urinating or dysuria Musculoskeletal Musculoskeletal: Reports back pain and extremity pain Integumentary Reports other Details: Cellulitis left leg ; Denies Abrasions or rash Neurologic Neurologic: Denies headache(s) or weakness Psychiatric Psychiatric: Denies anxiety or depression Allergic/Immunologic Allergic/Immunologic ED: Denies lip swelling or urticaria EXAM Physical Exam Const Vital Signs: 01/20/22 00:16 01/20/22 00:20 01/20/22 00:20 Temperature 99.7 F H 99.7 F H Temperature Source Oral Oral Pulse Rate 102 H 102 H Respiratory Rate 18 18 Respiratory Pattern Normal Blood Pressure 117/73 117/73 Blood Pressure Mean 87 87 Pulse Ox 97 97 Oxygen Delivery Method Room Air Room Air 01/20/22 01:20 01/20/22 01:20 01/20/22 01:20 Temperature 98.6 F 98.6 F Temperature Source Temporal Temporal Pulse Rate 102 H Respiratory Rate 21 H Respiratory Pattern Blood Pressure 108/61 Blood Pressure Mean 76 Pulse Ox 98 Oxygen Delivery Method Room Air Room Air 01/20/22 01:20 Temperature 98.6 F Temperature Source Temporal Pulse Rate 97 Respiratory Rate 21 H Respiratory Pattern Blood Pressure 108/61 Blood Pressure Mean 76 Pulse Ox 99 Oxygen Delivery Method Room Air Positive well nourished and well developed General Appearance ED: well developed HEENT Reports moist mucous membranes Eyes PERRL and EOMs intact bilaterally Chest Wall inspection of chest normal and palpation of chest normal Resp normal respiratory effort and clear to auscultation bilaterally Cardio regular rate and regular rhythm GI non-tender GI Narrative: Colostomy in place. Palpation: soft Extremity Extremity Narrative: 2 ulcerated lesions to the plantar surface of the foot, 1 over the distal metatarsals and 1 over the heel. No surrounding erythema. Minimal drainage. Erythema is noted through the calf and mcdonald up to the knee. Neuro oriented x3 MDM MDM MDM Narrative Medical decision making narrative: Sepsis work-up initiated. Lab Data Attestation: I reviewed the patient's lab results. Labs: Laboratory Results - last 24 hr 01/20/22 01/20/22 01/20/22 00:50 00:50 00:50 WBC 15.5 H RBC 3.94 L Hgb 11.3 L Hct 34.5 L MCV 87.6 MCH 28.7 MCHC 32.8 RDW Std Deviation 43.8 RDW Coeff of Claude 13.7 Plt Count 253 MPV 10.5 Immature Gran % (Auto) 0.800 Neut % (Auto) 79.1 H Lymph % (Auto) 12.3 L [place] % (Auto) 6.5 Eos % (Auto) 1.0 Baso % (Auto) 0.3 Absolute Neuts (auto) 12.3 H Absolute Lymphs (auto) 1.91 Nucleated RBC % 0 PT 12.9 INR 1.0 APTT 30.9 Sodium 135 L Potassium 3.8 Chloride 102 Carbon Dioxide 24.0 Anion Gap 9 BUN 11 Creatinine 1.15 H Estim Creat Clear Calc 51.43 Est GFR (MDRD) Af Amer 67 Est GFR (MDRD) Non-Af 56 L BUN/Creatinine Ratio 9.6 L Glucose 272 H Lactic Acid Calcium 9.1 Total Bilirubin 0.40 AST 11 L ALT 22 Alkaline Phosphatase 85 Total Protein 7.6 Albumin 3.2 Globulin 4.4 H Albumin/Globulin Ratio 0.7 L Urine Color Urine Clarity Urine pH Ur Specific [place] Urine Protein Urine Glucose (UA) Urine Ketones Urine Occult Blood Urine Nitrite Urine Bilirubin Urine Urobilinogen Ur Leukocyte Esterase Urine RBC Urine WBC Ur Squamous Epith Cells Amorphous Sediment Urine Bacteria Urine Mucus 01/20/22 01/20/22 00:50 01:05 WBC RBC Hgb Hct MCV MCH MCHC RDW Std Deviation RDW Coeff of Claude Plt Count MPV Immature Gran % (Auto) Neut % (Auto) Lymph % (Auto) [place] % (Auto) Eos % (Auto) Baso % (Auto) Absolute Neuts (auto) Absolute Lymphs (auto) Nucleated RBC % PT INR APTT Sodium Potassium Chloride Carbon Dioxide Anion Gap BUN Creatinine Estim Creat Clear Calc Est GFR (MDRD) Af Amer Est GFR (MDRD) Non-Af BUN/Creatinine Ratio Glucose Lactic Acid 2.9 H* Calcium Total Bilirubin AST ALT Alkaline Phosphatase Total Protein Albumin Globulin Albumin/Globulin Ratio Urine Color Yellow Urine Clarity Cloudy Urine pH 6.0 Ur Specific [place] 1.015 Urine Protein 30 H Urine Glucose (UA) 1000 H Urine Ketones Negative Urine Occult Blood 25 H Urine Nitrite Negative Urine Bilirubin Negative Urine Urobilinogen Normal Ur Leukocyte Esterase 500 H Urine RBC 0-5 SEEN Urine WBC >100 SEEN Ur Squamous Epith Cells 0-5 SEEN Amorphous Sediment 1+ Urine Bacteria 3+ Urine Mucus 0 SEEN EKG Initial EKG: Attestation: I personally reviewed and interpreted this EKG as follows: Interpretation: Sinus Rhythm (Sinus at 100 with no acute ischemia.) Treatment and Re-Evaluation Narrative: White blood cell count is 15.5 with left shift. Coags normal. Chemistry studies significant for blood sugar 272. Urinalysis taken from chronic indwelling catheter reveals greater than 100 white cells with 3+ bacteria. No nitrites noted. Left foot x-rays from interpretation reveal small soft tissue deficit on the plantar surface. Chronic bony changes are noted to the foot. Blood and urine cultures have been sent. Patient was ordered vancomycin, however she states that she usually turns red with this and requires Benadryl. I reviewed her last 2 foot wound cultures. Strep agalactiae grew on both cultures. This was sensitive to linezolid and she is given a dose of this. Lactic acid returned at 2.9 and patient is given IV fluid bolus. Patient be admitted to [facility] floor for further treatment. Discharge Plan Dx/Rx/DC Orders Clinical Impression: Cellulitis, Open wound of left foot, Acidosis, lactic Disposition Disposition: Acute Care Hospital [facility]
[2022-01-20] MEDS: 0.9% Normal Saline 1,000 ML 150 ML IV (01:20)
[2022-01-20] MEDS: Acetaminophen 500 MG Tablet 1000 MG PO (01:20)
[2022-01-20 01:22] LABS: Mucous, Urine 0 SEEN /hpf (<or=2+)
[2022-01-20 01:23] LABS: Color, Urine Yellow (Yellow); Glucose, Dipstick 1000 mg/dl (Normal); Ketone-Dipstick Negative (Negative); Leukocyte Esterase-Dipstick 500 /ul (Negative); Nitrite-Dipstick Negative (Negative); Occult Blood-Urine 25 /ul (Negative); Protein-Dipstick 30 mg/dl (Negative); Specific Gravity, Urine 1.015 (1.002-1.030); Urine Bilirubin Dipstick Negative (Negative); Urine Clarity Cloudy (Clear); Urine Urobilinogen Normal (Normal)
[2022-01-20 01:24] LABS: ALB/GLOB Ratio 0.7 RATIO (0.9-2.4); AST(SGOT) 11 U/L (15-37); Alanine Aminotransfer ALT/SGPT 22 U/L (13-56); Albumin, Serum 3.2 g/dL (3.2-5.0); Alkaline Phosphatase 85 U/L (45-117); Anion Gap 9 (5-15); BUN 11 mg/dL (7-18); BUN/Creat Ratio 9.6 RATIO (10-20); Calcium,Total 9.1 mg/dL (8.5-10.1); Chloride 102 mmol/L (98-107); Creatinine, Serum 1.15 mg/dL (0.55-1.02); EST Glomerular Filtration Rate 56 mL/min (>60); Est Glom Filt Rate - Afr Amer 67 mL/min (>60); Estimated Creatinine Clearance 51.43 ml/min; Globulin 4.4 g/dL (2.2-4.2); Glucose 272 mg/dL (74-106); Potassium 3.8 mmol/L (3.5-5.1); Protein, Total 7.6 g/dL (6.4-8.2); Sodium Level 135 mmol/L (136-145)
--- NOTE | 2022-01-20 01:30 | ED.RN ---
UNABLE TO TO OBTAIN 2ND IV SITE AT THIS TIME.
[2022-01-20 01:34] LABS: Amorphous Sediment 1+; Bacteria 3+ /hpf (None Seen); Red Blood Cells-Urine 0-5 SEEN /hpf (0-5); Squamous Epithelial Cells - UA 0-5 SEEN /hpf (5-10); White Blood Cells >100 SEEN /hpf (0-5)
[2022-01-20] MEDS: Linezolid 600 MG 600 MG/300 ML BAG 200 MG IV ×2 (01:48→21:24)
[2022-01-20 01:56] LABS: Lactic Acid 2.9 mmol/L (0.4-1.9)
--- NOTE | 2022-01-20 02:00 | HP.PCM.HOS_ITS ---
HPI - General General Date of Admission: 01/20/22 Date of Service: 01/20/22 Chief Complaint: L foot pain, erythema, drainage from wounds. HPI Narrative The patient is a 41 y/o F w/ PMHx: Anxiety and Depression/Panic attacks, Chronic normocytic anemia, Spina Bifida with neurogenic bowels and bladder with suprapubic catheter w/ Frequent Complicated UTIs, Diabetes mellitus type II, Obesity, HTN, HLD, Chronic L Foot wound following with [facility] with most recent evaluation 11/21/21-11/22/21 for L foot infection with superficial ulcerations on the plantar 1st MTP and heel who now presents to the [facility] ED on 01/20/22 with history of ongoing evaluation at [facility] for L foot wound w/ prior history of osteomyelitis, awaking during the evening with increased pain, drainage as well as redness extending up her leg with associated nausea without emesis, fatigue and malaise prompting ED evaluation. She also incidentally upon ED arrival complaints of mild BL flank discomfort also. Patient reports currently pain in the left lower extremity 10 out of 10 in severity, aching, throbbing and occasionally sharp stabbing pain. Patient reports following with [facility] podiatry Dr. Gomez with most recent evaluation within the last 2 weeks. She states that she has been doing well and compliant with therapies and treatments. Discussed plan for consultation with podiatry upon current evaluation and she requested that Dr. Michael service be consulted as she is seen her in the past during her last admission. Work-up in the ED included T-max 99.7, heart rate 102, BP 117/73, respiratory rate 18, 97% on room air, CBC with WC 15.5, hemoglobin 11.3, platelet 253 with left shift, unremarkable coags, CMP with sodium 135, BUN/creat 15/1.15, glucose 272, lactic acid 2.9, hepatic profile unremarkable otherwise, urinalysis with specific gravity 1.015, protein 30, glucose 1000, negative ketone, occult blood 25, negative nitrite, leukocyte Estrace 500, urine WBCs greater than 100 with 3+ urine bacteria with urine culture pending per ED, blood culture x2 pending per ED, plain film of the left foot with preliminary soft tissue deficit on the plantar surface with chronic bony changes however final read is pending. In the ED patient ministered 30 cc/kg IV fluid bolus as well as linezolid given allergy history. [facility] Medical History (Updated 01/20/22 @ 01:[address] Taya Wong MD) Anxiety and depression Arthritis Manley's palsy Cellulitis of left lower extremity Chronic back pain Chronic nausea Colostomy in place Constipation Delayed wound healing Diabetes mellitus, type II Diabetic polyneuropathy Diabetic ulcer of left heel with fat layer exposed DJD (degenerative joint disease) of thoracic spine Dysthymic disorder Essential hypertension Hematochezia History of kidney stones History of migraine Hydronephrosis of right kidney Hyperglycemia Hyperlipidemia Infection of bladder catheter Insomnia Lipomeningocele Lower extremity edema Morbid obesity with BMI of 40.0-44.9, adult Neurogenic bladder Neurogenic bowel Non-compliance Non-smoker Normochromic normocytic anemia Panic attacks PSVT (paroxysmal supraventricular tachycardia) Sepsis Sepsis Spina bifida aperta of lumbar spine Thyroid cyst Type 2 diabetes mellitus with diabetic polyneuropathy Ulcer of left heel and midfoot with fat layer exposed Uninodular goiter Urinary tract infection UTI (urinary tract infection) UTI (urinary tract infection) Weakness Home Medications furosemide 20 mg tablet 20 mg PO DAILY@1700 fluid 08/28/18 [History Last Taken 12/22/20] furosemide 40 mg tablet 40 mg PO BREAKFAST fluid 04/05/19 [History Last Taken 12/22/20] insulin glargine 100 unit/mL (3 mL) subcutaneous pen (Lantus Solostar U-100 Insulin) 30 unit subcut QHS dm 11/01/19 [History Last Taken 12/21/20] oxybutynin chloride 15 mg tablet,extended release 24 hr 15 mg PO DAILY bladder 11/12/19 [History Last Taken 12/22/20] propranolol 10 mg tablet 10 mg PO BID heart 01/13/20 [History Last Taken 12/22/20] acetaminophen 500 mg tablet 1,000 mg PO TID PRN PRN Pain Or Fever 02/12/20 [History Last Taken 09/24/20 19:24] trazodone 100 mg tablet 100 mg PO QHS 01/19/21 [History Last Taken Unknown] atorvastatin 80 mg tablet 80 mg PO DAILY 01/29/21 [History Last Taken Unknown] insulin aspart (niacinamide)(U-100) 100 unit/mL(3 mL) subcutaneous pen 0 - 100 ml subcut PRN PRN Hyperglycemia 01/29/21 [History Last Taken Unknown] lisinopril 5 mg tablet 5 mg PO DAILY #90 tabs 01/29/21 [Rx Last Taken Unknown] pen needle, diabetic 32 gauge x 5/32 (BD Ultra-Fine Hope Pen Needle) #400 ea [Rx Last Taken Unknown] glimepiride 2 mg tablet 2 mg PO BID #180 tabs 03/31/21 [Rx Last Taken Unknown] ondansetron 4 mg disintegrating tablet 4 mg PO Q6H PRN nausea and vomiting #10 tabs 08/20/21 [Rx Last Taken Unknown] phenazopyridine 200 mg tablet (Pyridium) 200 mg PO BID PRN PRN Pain 11/20/21 [History Last Taken Unknown] Allergy/AdvReac Type Severity Reaction Status Date / Time ceftriaxone [[facility]] Allergy Hives Verified 01/13/22 11:30 mushroom Allergy Anaphylaxis Verified 01/13/22 11:30 peanut Allergy Anaphylaxis Verified 01/13/22 11:30 fentanyl AdvReac Low blood Verified 01/13/22 11:30 pressure Gadolinium-MRI Contrast AdvReac Vomiting Verified 01/13/22 11:30 Medium Latex, Natural Rubber AdvReac Rash Verified 01/13/22 11:30 vancomycin AdvReac Rash Verified 01/20/22 01:19 Family History Mother CVA (cerebral vascular accident) Thyroid disorder Diabetes Hypertension Heart disease Hyperlipidemia Myocardial infarction, Onset Age: 54 mother had diabetes Father Cancer skin Grandmother Cancer liver Other Arthritis Skin cancer Surgical History (Updated 01/20/22 @ 02:[address] Ny Anderson MD) history insertion suprapubic catheter History of cholecystectomy History of dilation and curettage History of spinal surgery Hx of foot surgery Hx of ventral hernia repair S/P colostomy S/P thyroid biopsy (~11/06/19) Status post gastric surgery Social History household members: significant other Smoking Status: Never smoker alcohol intake: current substance use type: does not use ROS ROS Narrative Admission Review of Systems: CONSTITUTIONAL: No weight loss, fever, chills, + weakness or fatigue. HEENT: Eyes: No visual loss, blurred vision, double vision or yellow sclerae. Ears, Nose, Throat: No hearing loss, sneezing, congestion, runny nose or sore throat. SKIN: + Joan-suprapubic catheter skin irritation, L foot wounds with drainage, erythema extending up the leg from the foot. CARDIOVASCULAR: No chest pain, chest pressure or chest discomfort, palpitations, edema, orthopnea, syncopal events. RESPIRATORY: No shortness of breath, cough or sputum, wheezing, hemoptysis. GASTROINTESTINAL: + anorexia, nausea without vomiting, Flank pain BL, ostomy in place, no abdominal pain, melena, patricia BRBPR. GENITOURINARY: + Suprapubic pain, catheter in place w/ per catheter irritation. NEUROLOGICAL: No headache, dizziness, syncope, paralysis, ataxia, numbness or tingling in the extremities, focal weakness, change in bowel or bladder control, seizure. MUSCULOSKELETAL: + Muscle, back pain, joint pain or stiffness. HEMATOLOGIC: No anemia, bleeding or bruising. LYMPHATICS: No enlarged nodes. No history of splenectomy. PSYCHIATRIC: + History of depression or anxiety. ENDOCRINOLOGIC: No reports of sweating, cold or heat intolerance. No polyuria or polydipsia. ALLERGIES: No history of asthma, hives, eczema or rhinitis. Vital Signs Vital Signs Vital Signs: 01/20/22 00:16 01/20/22 00:20 01/20/22 00:20 Temperature 99.7 F H 99.7 F H Temperature Source Oral Oral Pulse Rate 102 H 102 H Respiratory Rate 18 18 Respiratory Pattern Normal Blood Pressure 117/73 117/73 Blood Pressure Mean 87 87 Pulse Ox 97 97 Oxygen Delivery Method Room Air Room Air 01/20/22 01:20 01/20/22 01:20 01/20/22 01:20 Temperature 98.6 F 98.6 F Temperature Source Temporal Temporal Pulse Rate 102 H Respiratory Rate 21 H Respiratory Pattern Blood Pressure 108/61 Blood Pressure Mean 76 Pulse Ox 98 Oxygen Delivery Method Room Air Room Air 01/20/22 01:20 Temperature 98.6 F Temperature Source Temporal Pulse Rate 97 Respiratory Rate 21 H Respiratory Pattern Blood Pressure 108/61 Blood Pressure Mean 76 Pulse Ox 99 Oxygen Delivery Method Room Air Weight Weight: 205 lb 14.588 oz Body Mass Index (BMI) 37.6 Physical Exam Narrative Physical Examination: General: Awake, alert, oriented x 3 and cooperative, seated upright in the ED bed, NAD, playing with her phone. Skin: Normal color, normal turgor, no icterus, no cyanosis except chronic joan- suprapubic catheter skin changes as well as LLE foot wound specifically below the first MTP with poor granulation base, foul odor, mild yellow discharge and slough, he will also similarly with wound with poor granulation base, foul odor and yellow discharge with periwound erythema extending up the leg circumferentially to the knee region. HEENT: AT/NC, EOMI, PERRLA, mildly dry MM, no carotid bruits or JVD noted; however thickened neck makes examination difficult. Lungs: Mildly diminished, > bases, appropriate effort, no rales, ronchi or wheezing. Heart: Mildly tachycardic with regular rhythm; no gallop, rub audible. Abdomen: Soft, morbidly obese, mild Bl flank discomfort but no rebound or guarding, colostomy in place, distant normal BS, suprapubic catheter in place, no obvious HSM however habitus and pain make evaluation difficult. Extremities: No cyanosis, no clubbing, see skin. Neurological: Patient awake, alert, oriented as noted, cognitive function intact; pupils equally reactive to light and accommodation, cranial nerves II- XII grossly normal, moving all 4 extremities, no focal deficits, strength mildly to moderately global decrease secondary to acute presentation complaints. Psychiatric: Affect appears fatigued otherwise normal, no acute evidence of depressive or anxiety feelings. Results Lab / Micro Data Result Diagrams: 01/20/22 00:50 01/20/22 00:50 Labs: Laboratory Results - last 24 hr 01/20/22 00:50: WBC 15.5 H, RBC 3.94 L, Hgb 11.3 L, Hct 34.5 L, MCV 87.6, MCH 28.7, MCHC 32.8, RDW Std Deviation 43.8, RDW Coeff of Claude 13.7, Plt Count 253, MPV 10.5, Immature Gran % (Auto) 0.800, Neut % (Auto) 79.1 H, Lymph % (Auto) 12.3 L, [place] % (Auto) 6.5, Eos % (Auto) 1.0, Baso % (Auto) 0.3, Absolute Neuts (auto) 12.3 H, Absolute Lymphs (auto) 1.91, Nucleated RBC % 0 01/20/22 00:50: PT 12.9, INR 1.0, APTT 30.9 01/20/22 00:50: Sodium 135 L, Potassium 3.8, Chloride 102, Carbon Dioxide 24.0, Anion Gap 9, BUN 11, Creatinine 1.15 H, Estim Creat Clear Calc 51.43, Est GFR (MDRD) Af Amer 67, Est GFR (MDRD) Non-Af 56 L, BUN/Creatinine Ratio 9.6 L, Glucose 272 H, Calcium 9.1, Total Bilirubin 0.40, AST 11 L, ALT 22, Alkaline Phosphatase 85, Total Protein 7.6, Albumin 3.2, Globulin 4.4 H, Albumin/Globulin Ratio 0.7 L 01/20/22 00:50: Lactic Acid 2.9 H* 01/20/22 01:05: Urine Color Yellow, Urine Clarity Cloudy, Urine pH 6.0, Ur Specific B[place] 1.015, Urine Protein 30 H, Urine Glucose (UA) 1000 H, Urine Ketones Negative, Urine Occult Blood 25 H, Urine Nitrite Negative, Urine B ilirubin Negative, Urine Urobilinogen Normal, Ur Leukocyte Esterase 500 H, Urine RBC 0-5 SEEN, Urine WBC >100 SEEN, Ur Squamous Epith Cells 0-5 SEEN, Amorphous Sediment 1+, Urine Bacteria 3+, Urine Mucus 0 SEEN Assessment & Plan Assessment/Plan (1) Open wound of left foot: (2) Cellulitis: (3) Acidosis, lactic: PLAN: Plan The patient is a 41 y/o F w/ PMHx: Anxiety and Depression/Panic attacks, Chronic normocytic anemia, Spina Bifida with neurogenic bowels and bladder with suprapubic catheter w/ Frequent Complicated UTIs, Diabetes mellitus type II, Obesity, HTN, HLD, Chronic L Foot wound following with [facility] with most recent evaluation 11/21/21-11/22/21 for L foot infection with superficial ulcerations on the plantar 1st MTP and heel who now presents to the [facility] ED on 01/20/22 with history of ongoing evaluation at [facility] for L foot wound w/ prior history of osteomyelitis, awaking during the evening with increased pain, drainage as well as redness extending up her leg with associated nausea without emesis, fatigue and malaise prompting ED evaluation. #1. LLE Diabetic Foot Wound w/ LLE Extremity Cellulitis with Lactic acidosis: Will admit to [facility], maintain on Zyvox and zosyn given allergy history with patient reported reaction to vancomycin and of note recently had Augmentin and tolerated therefore continuation with Zosyn, will obtain Wound Cx, will obtain Wound MRSA PCR, ESR and CRP requested, plan repeat CBC in AM, continue affected extremity elevation above heart when seated and in bed, monitor erythema outline with VS checks, consult podiatry specifically Dr. Alec jensen per patient request as well as wound care evaluation requested. #2. Spina Bifida with Neurogenic Bowel/Bladder w/ Chronic Suprapubic Catheter with Frequent UTIs, complicated with questionable recurrent complicated UTI with chronic joan-catheter skin irritation: Maintain on fall precautions, encourage frequent positional changes, per-catheter skin care, continued suprapubic c atheter, pending UA given flank discomfort BL; however, do suspect some component chronic colonication therefore urine culture is pending and as noted patient is on extensive broad-spectrum regimen with Zyvox and Zosyn awaiting ID evaluation additionally given allergy history. Dressing changes frequently to per-catheter region, barrier cream as needed, pending Wound consultation as noted. #3. Mild renal insufficiency: Admission BUN/creatinine 15/1.15, baseline renal function primarily 0.8-1, will continue judicious hydration, repeat BMP in AM. #4. Hypertension: Continue home regimen including lisinopril, Lasix, propranolol with hold parameters, PRN hydralazine. #5. Hyperlipidemia: Continue home statin regimen. #6. Obesity: Weight loss and lifestyle changes encouraged. #7. Diabetes mellitus type II with hyperglycemia: Hold oral regimen, continue home insulin regimen with adjustments as needed given acute infectious presentation, ADA diet, accu checks w/ ISS. HgBA1c requested. #8. Anxiety and Depression/Panic attacks: Will continue q HS trazodone regimen, not on any other psychiatric regimen. #9. Chronic normocytic anemia: Admission hemoglobin 11.3, baseline 11-12, stab le, trend. #10. DVT prophylaxis: SCDs, Lovenox. Charges/Coding Visit Charges Inpatient E&M: 34901 Init Hosp L3
--- NOTE | 2022-01-20 02:24 | ED.RN ---
3 more attempts made for second IV, unsuccessful. Dr Wong aware and states to not try anymore. Per Dr Wong run the antibiotic first then start the fluid boluses.
[2022-01-20 02:50] LABS: Erythrocyte Sedimentation Rate 76 mm/hr (0-30)
[2022-01-20] MEDS: 0.9% Saline Lock 10 ML Syringe IV ×3 (03:31→11:48)
[2022-01-20 04:53] LABS: Absolute Lymphocyte Count 1.87 X10^3/uL (0.83-4.51); Absolute Neutrophil Count 10.4 X10^3/uL (2.0-7.7); Basophil# 0.06 X10^3/uL; Basophil% 0.4 % (0-1); Eosinophil# 0.14 X10^3/uL; Hematocrit 30.7 % (37-47); Hemoglobin 10.5 g/dL (12.0-15.0); Lymphocyte # 1.87 X10^3/ul (0.83-4.51); Lymphocyte % 13.8 % (19-41); Mean Corp Hgb Conc 34.2 g/dL (32-36); Mean Corpuscular Hgb 30.1 pg (27.0-32.0); Mean Platelet Vol. 10.4 fl (6.2-12.0); Monocyte# 0.93 X10^3/uL; Monocyte% 6.9 % (0-10); NRBC Flagged by Analyzer 0 % (0-5); Neutrophil # 10.39 X10^3/uL (2.7-7.7); Platelet Count 172 K/mm3 (150-450); RBC Distribution Width CV 13.8 % (11.6-14.6); Red Blood Count 3.49 M/mm3 (4.2-5.4); White Blood Count 13.5 K/mm3 (4.4-11.0)
[2022-01-20 05:04] LABS: Reflex Lactate? Y
[2022-01-20 05:18] LABS: ALB/GLOB Ratio 0.6 RATIO (0.9-2.4); AST(SGOT) 15 U/L (15-37); Alanine Aminotransfer ALT/SGPT 20 U/L (13-56); Albumin, Serum 2.8 g/dL (3.2-5.0); Alkaline Phosphatase 81 U/L (45-117); Anion Gap 7 (5-15); BUN 11 mg/dL (7-18); Calcium,Total 8.4 mg/dL (8.5-10.1); Chloride 106 mmol/L (98-107); EST Glomerular Filtration Rate 65 mL/min (>60); Est Glom Filt Rate - Afr Amer 79 mL/min (>60); Estimated Creatinine Clearance 59.15 ml/min; Globulin 4.6 g/dL (2.2-4.2); Glucose 249 mg/dL (74-106); Potassium 3.9 mmol/L (3.5-5.1); Protein, Total 7.4 g/dL (6.4-8.2); Sodium Level 137 mmol/L (136-145)
[2022-01-20 05:22] LABS: Lactic Acid 1.6 mmol/L (0.4-1.9)
[2022-01-20] MEDS: Insulin Lispro 100 UNIT/ML INSULN.PEN SC ×4 (06:29→23:22)
[2022-01-20 06:50] LABS: Bedside Glucose 208 mg/dL (74-106)
--- NOTE | 2022-01-20 07:12 | MRI_ITS ---
STUDY: MRI LEFT FOOT REASON FOR EXAM: Nonhealing ulcers of the heel and first metatarsal head. TECHNIQUE: Standardized fat and water weighted pulse sequences were obtained in all 3 orthogonal planes. COMPARISON: Radiographs 01/20/2022 and MRI images 11/21/2021. FINDINGS: Normal tibiotalar and posterior subtalar articulations. There is no bone edema of the calcaneus. Normal talonavicular articulation. Normal calcaneocuboid articulation. Normal navicular-cuneiform articulations. Normal intercuneiform articulations. Normal first tarsometatarsal articulation. Normal Lisfranc ligament. Normal second and third tarsometatarsal articulations. Normal cuboid fourth and cuboid fifth tarsometatarsal articulation. There is amputation of the distal half of the fifth metatarsal. Otherwise, unremarkable metatarsals. There is mild arthrosis of the first metatarsophalangeal joint with small marginal osteophytes and mild chondral thinning (T1 sagittal images 19, 20). There is arthrosis of the tibial sesamoid-first metatarsal articulation with small marginal osteophytes and chondral thinning (T1 sagittal image 20). There is no bone edema of the sesamoids. There is amputation of the first digit at the level of the interphalangeal joint. There is no bone edema of the first proximal phalanx. Normal tibialis anterior tendon. Normal extensor hallucis longus tendon. Normal extensor digitorum longus tendons. Normal peroneus longus tendon and distal insertion. Normal peroneus brevis tendon and distal insertion. There is atrophy of the intrinsic muscles of the foot with fat replacement (T1 sagittal images 7-19) suggestive of peripheral neuropathy. There is mild edema in the plantar heel pad. There is edema in the subcutis adipose space plantar to the first metatarsophalangeal joint and first proximal phalanx. There is no focal fluid collection. MRI/Lower Ext/No Jt/w/o IMPRESSION: Edema in the plantar heel pad and in the subcutis adipose space plantar to the first metatarsophalangeal joint and first proximal phalanx without demonstrated soft tissue abscess or osteomyelitis. Mild arthrosis of the first metatarsophalangeal joint and arthrosis of the tibial sesamoid-first metatarsal articulation. Atrophy of the intrinsic muscles of the foot suggestive of peripheral neuropathy. Electronically Signed: Farhan Rivera MD at 13:29 EDT ,
--- NOTE | 2022-01-20 07:13 | CON.PCM_ITS ---
Assessment & Plan Assessment/Plan (1) Cellulitis: (2) Open wound of left foot: (3) Diabetic polyneuropathy: QUALIFIERS: Diabetes mellitus type: type 2 Qualified Code(s): E11.42 - Type 2 diabetes mellitus with diabetic polyneuropathy (4) Diabetic foot infection: (5) Type 2 diabetes mellitus with foot ulcer: PLAN: Plan Evaluation performed. Reviewed diagnositc data. Culture has been obtained left foot ulcerations. Patient is on IV antibiotic therarpy at this time - Vanc/Zosyn. MRI left foot was ordered to evaluate for possible osteomyelitis. Ordered LEAS. The ulceration left heel and ulceration sub left 1st met head was debrided in excisional fashion using a 15 blade down to subcutaneous tissue. Ulcerations were debrided down to healthy viable tissue. No anesthesia was needed due to patient's peripheral neuropathy. Hemostasis achieved with gauze and pressure. Wound care: Aquacel Ag and overlying gauze, kerlix and richard dressing - change daily. No weightbearing left foot. She relates her will bring in her boot. Podiatry will continue to follow - thank you for consultation. HPI Consult Data Date of Consult: 01/20/22 HPI Narrative Reason for Consultation: Left foot ulcers HPI Narrative: HEBER BAILON, is a 41 F who presents with nonhealing left foot ulcers - one on the heel and other sub 1st metatarsal had left foot with associated cellulitis to left lower extremity. Patient was following at [facility] podiatry but sh e relates she does not want to go back there. She relates she last saw them a while ago, she relates wounds were healing, but not have worsened. She relates she just developed cellulitis so her brought her to the hospital. WBC is elevated. Xrays of left foot with no gas or clear evidence of osteomyelitis. She relates she has a boot, but did not bring it with her. She is resting in bed. She has no other complaints at this time, no complaints of fever, chills, nausea or vomiting. [facility] Medical History (Updated 01/20/22 @ 07:[address] Will Guo, DPTre) Anxiety and depression Arthritis Manley's palsy Cellulitis of left lower extremity Chronic back pain Chronic nausea Colostomy in place Constipation Delayed wound healing Diabetes mellitus, type II Diabetic polyneuropathy Diabetic ulcer of left heel with fat layer exposed DJD (degenerative joint disease) of thoracic spine Dysthymic disorder Essential hypertension Hematochezia History of kidney stones History of migraine Hydronephrosis of right kidney Hyperglycemia Hyperlipidemia Infection of bladder catheter Insomnia Lipomeningocele Lower extremity edema Morbid obesity with BMI of 40.0-44.9, adult Neurogenic bladder Neurogenic bowel Non-compliance Non-smoker Normochromic normocytic anemia Panic attacks PSVT (paroxysmal supraventricular tachycardia) Sepsis Sepsis Spina bifida aperta of lumbar spine Thyroid cyst Type 2 diabetes mellitus with diabetic polyneuropathy Ulcer of left heel and midfoot with fat layer exposed Uninodular goiter Urinary tract infection UTI (urinary tract infection) UTI (urinary tract infection) Weakness Home Medications furosemide 20 mg tablet 20 mg PO 2200 fluid 08/28/18 [History Last Taken 01/18/22] furosemide 40 mg tablet 40 mg PO BREAKFAST fluid 04/05/19 [History Last Taken 01/19/22] insulin glargine 100 unit/mL (3 mL) subcutaneous pen (Lantus Solostar U-100 Insulin) 30 unit subcut QHS dm 11/01/19 [History Last Taken 01/18/22] oxybutynin chloride 15 mg tablet,extended release 24 hr 15 mg PO DAILY bladder 11/12/19 [History Last Taken 01/19/22] propranolol 10 mg tablet 10 mg PO BID heart 01/13/20 [History Last Taken 01/19/22] acetaminophen 500 mg tablet 1,000 mg PO TID PRN PRN Pain Or Fever 02/12/20 [History Last Taken 09/24/20 19:24] trazodone 100 mg tablet 100 mg PO QHS sleep 01/19/21 [History Last Taken Unknown] atorvastatin 80 mg tablet 80 mg PO DAILY cholesterol 01/29/21 [History Last Taken 01/19/22] insulin aspart (niacinamide)(U-100) 100 unit/mL(3 mL) subcutaneous pen 0 - 100 ml subcut PRN PRN Hyperglycemia 01/29/21 [History Last Taken Unknown] lisinopril 5 mg tablet 5 mg PO DAILY #90 tabs 01/29/21 [Rx Last Taken 01/19/22] pen needle, diabetic 32 gauge x 5/32 (BD Ultra-Fine Hope Pen Needle) #400 ea 03/05/21 [Rx Last Taken Unknown] glimepiride 2 mg tablet 2 mg PO BID #180 tabs 03/31/21 [Rx Last Taken 01/19/22] phenazopyridine 200 mg tablet (Pyridium) 200 mg PO BID PRN PRN Pain 11/20/21 [History Last Taken Unknown] Allergy/AdvReac Type Severity Reaction Status Date / Time ceftriaxone [From Rocephin] Allergy Hives Verified 01/13/22 11:30 mushroom Allergy Anaphylaxis Verified 01/13/22 11:30 peanut Allergy Anaphylaxis Verified 01/13/22 11:30 fentanyl AdvReac Low blood Verified 01/13/22 11:30 pressure Gadolinium-MRI Contrast AdvReac Vomiting Verified 01/13/22 11:30 Medium Latex, Natural Rubber AdvReac Rash Verified 01/13/22 11:30 vancomycin AdvReac Rash Verified 01/20/22 01:19 Family History Mother CVA (cerebral vascular accident) Thyroid disorder Diabetes Hypertension Heart disease Hyperlipidemia Myocardial infarction, Onset Age: 54 mother had diabetes Father Cancer skin Grandmother Cancer liver Other Arthritis Skin cancer Surgical History history insertion suprapubic catheter History of cholecystectomy History of dilation and curettage History of spinal surgery Hx of foot surgery Hx of ventral hernia repair S/P colostomy S/P thyroid biopsy (~11/06/19) Status post gastric surgery Social History household members: significant other Smoking Status: Never smoker alcohol intake: current substance use type: does not use Physical Exam Const alert, oriented x3 and no apparent distress Extremity Extremity Narrative: Left foot with ulceration sub 1st meth head and also to plantar heel with nonviable tissue with callus formation - down to subcutaneous tissue, no probe to bone, there is some serous drainage, no fluctuance, no crepitus, no visible abscess, there is some cellulitis to the leg. CFT < 2 seconds to all toes, with no evidence of acute ischemia to the left foot. Peripheral neuropathy present to the left foot. No open lesions or evidence of ischemia to the right foot. Lab / Micro Data Result Diagrams: 01/20/22 04:46 01/20/22 04:46 Labs: Laboratory Results - last 24 hr 01/20/22 00:50: WBC 15.5 H, RBC 3.94 L, Hgb 11.3 L, Hct 34.5 L, MCV 87.6, MCH 28.7, MCHC 32.8, RDW Std Deviation 43.8, RDW Coeff of Claude 13.7, Plt Count 253, M PV 10.5, Immature Gran % (Auto) 0.800, Neut % (Auto) 79.1 H, Lymph % (Auto) 12.3 L, [place] % (Auto) 6.5, Eos % (Auto) 1.0, Baso % (Auto) 0.3, Absolute Neuts (auto) 12.3 H, Absolute Lymphs (auto) 1.91, Nucleated RBC % 0 01/20/22 00:50: PT 12.9, INR 1.0, APTT 30.9 01/20/22 00:50: Sodium 135 L, Potassium 3.8, Chloride 102, Carbon Dioxide 24.0, Anion Gap 9, BUN 11, Creatinine 1.15 H, Estim Creat Clear Calc 51.43, Est GFR (MDRD) Af Amer 67, Est GFR (MDRD) Non-Af 56 L, BUN/Creatinine Ratio 9.6 L, Glucose 272 H, Calcium 9.1, Total Bilirubin 0.40, AST 11 L, ALT 22, Alkaline Phosphatase 85, Total Protein 7.6, Albumin 3.2, Globulin 4.4 H, Albumin/Globulin Ratio 0.7 L 01/20/22 00:50: Lactic Acid 2.9 H* 01/20/22 00:50: ESR 76 H 01/20/22 00:50: C-React Prot Ext Range 33.80 H 01/20/22 01:05: Urine Color Yellow, Urine Clarity Cloudy, Urine pH 6.0, Ur Specific Wells 1.015, Urine Protein 30 H, Urine Glucose (UA) 1000 H, Urine Ketones Negative, Urine Occult Blood 25 H, Urine Nitrite Negative, Urine Bilirubin Negative, Urine Urobilinogen Normal, Ur Leukocyte Esterase 500 H, Urine RBC 0-5 SEEN, Urine WBC >100 SEEN, Ur Squamous Epith Cells 0-5 SEEN, A morphous Sediment 1+, Urine Bacteria 3+, Urine Mucus 0 SEEN 01/20/22 04:41: Lactic Acid 1.6 01/20/22 04:46: WBC 13.5 H, RBC 3.49 L, Hgb 10.5 L, Hct 30.7 L, MCV 88.0, MCH 30.1, MCHC 34.2, RDW Std Deviation 44.0 H, RDW Coeff of Claude 13.8, Plt Count 172, MPV 10.4, Immature Gran % (Auto) 0.900, Neut % (Auto) 77.0 H, Lymph % (Auto) 13.8 L, [place] % (Auto) 6.9, Eos % (Auto) 1.0, Baso % (Auto) 0.4, Absolute Neuts (auto) 10.4 H, Absolute Lymphs (auto) 1.87, Nucleated RBC % 0 01/20/22 04:46: Sodium 137, Potassium 3.9, Chloride 106, Carbon Dioxide 24.0, Anion Gap 7, BUN 11, Creatinine 1.00, Estim Creat Clear Calc 59.15, Est GFR (MDRD) Af Amer 79, Est GFR (MDRD) Non-Af 65, BUN/Creatinine Ratio 11.0, Glucose 249 H, Calcium 8.4 L, Total Bilirubin 0.30, AST 15, ALT 20, Alkaline Phosphatase 81, Total Protein 7.4, Albumin 2.8 L, Globulin 4.6 H, Albumin/Globulin Ratio 0.6 L 01/20/22 06:25: POC Glucose 208 H Radiology Impression Foot X-Ray 01/20/22 00:41 IMPRESSION: undefined
[2022-01-20 07:35] LABS: Hemoglobin A1c 8.5 % (3.8-5.6)
--- NOTE | 2022-01-20 07:46 | PN.HOSP_ITS ---
Subjective Subjective Patient admitted with cellulitis of left lower extremity. 2 chronic wounds on the bottom of left foot. Her warehouse helper Dr. Gomez but the patient does not want to see him. She reported redness spreading up her leg. Complaint of fever, nausea, loss of appetite. The patient was feeling very weak, was sleeping all day yesterday with mild fever Objective Data Objective Data Vital Signs: Vital Signs Temp Pulse Resp BP Pulse Ox O2 Del Method 98.7 F 77 20 H 117/72 96 Room Air 01/20/22 03:12 01/20/22 03:12 01/20/22 03:12 01/20/22 03:12 01/20/22 03:12 01/20/22 04:00 Oxygen Delivery Method Room Air Weight: 201 lb 4.513 oz Body Mass Index (BMI) 36.8 Intake & Output: Intake and Output for Last 24 Hours 01/18/22 01/19/22 01/20/22 23:59 23:59 23:59 Intake Total 3192.5 / 3192.5 Output Total 1650 / 1650 Balance 1542.5 / 1542.5 Lab / Micro Data Result Diagrams: 01/20/22 04:46 01/20/22 04:46 Labs: Laboratory Results - last 24 hr 01/20/22 00:50: WBC 15.5 H, RBC 3.94 L, Hgb 11.3 L, Hct 34.5 L, MCV 87.6, MCH 28.7, MCHC 32.8, RDW Std Deviation 43.8, RDW Coeff of Claude 13.7, Plt Count 253, MPV 10.5, Immature Gran % (Auto) 0.800, Neut % (Auto) 79.1 H, Lymph % (Auto) 12.3 L, Crane % (Auto) 6.5, Eos % (Auto) 1.0, Baso % (Auto) 0.3, Absolute Neuts (auto) 12.3 H, Absolute Lymphs (auto) 1.91, Nucleated RBC % 0 01/20/22 00:50: PT 12.9, INR 1.0, APTT 30.9 01/20/22 00:50: Sodium 135 L, Potassium 3.8, Chloride 102, Carbon Dioxide 24.0, Anion Gap 9, BUN 11, Creatinine 1.15 H, Estim Creat Clear Calc 51.43, Est GFR (MDRD) Af Amer 67, Est GFR (MDRD) Non-Af 56 L, BUN/Creatinine Ratio 9.6 L, Glucose 272 H, Calcium 9.1, Total Bilirubin 0.40, AST 11 L, ALT 22, Alkaline Phosphatase 85, Total Protein 7.6, Albumin 3.2, Globulin 4.4 H, Albumin/Globulin Ratio 0.7 L 01/20/22 00:50: Lactic Acid 2.9 H* 01/20/22 00:50: ESR 76 H 01/20/22 00:50: C-React Prot Ext Range 33.80 H 01/20/22 01:05: Urine Color Yellow, Urine Clarity Cloudy, Urine pH 6.0, Ur Specific [place] 1.015, Urine Protein 30 H, Urine Glucose (UA) 1000 H, Urine Ketones Negative, Urine Occult Blood 25 H, Urine Nitrite Negative, Urine Bilirubin Negative, Urine Urobilinogen Normal, Ur Leukocyte Esterase 500 H, Urine RBC 0-5 SEEN, Urine WBC >100 SEEN, Ur Squamous Epith Cells 0-5 SEEN, Amorphous Sediment 1+, Urine Bacteria 3+, Urine Mucus 0 SEEN 01/20/22 04:41: Lactic Acid 1.6 01/20/22 04:46: WBC 13.5 H, RBC 3.49 L, Hgb 10.5 L, Hct 30.7 L, MCV 88.0, MCH 30.1, MCHC 34.2, RDW Std Deviation 44.0 H, RDW Coeff of Claude 13.8, Plt Count 172, MPV 10.4, Immature Gran % (Auto) 0.900, Neut % (Auto) 77.0 H, Lymph % (Auto) 13.8 L, Crane % (Auto) 6.9, Eos % (Auto) 1.0, Baso % (Auto) 0.4, Absolute Neuts (auto) 10.4 H, Absolute Lymphs (auto) 1.87, Nucleated RBC % 0 01/20/22 04:46: Sodium 137, Potassium 3.9, Chloride 106, Carbon Dioxide 24.0, Anion Gap 7, BUN 11, Creatinine 1.00, Estim Creat Clear Calc 59.15, Est GFR (MDRD) Af Amer 79, Est GFR (MDRD) Non-Af 65, BUN/Creatinine Ratio 11.0, Glucose 249 H, Calcium 8.4 L, Total Bilirubin 0.30, AST 15, ALT 20, Alkaline Phosphatase 81, Total Protein 7.4, Albumin 2.8 L, Globulin 4.6 H, Albumin/Globulin Ratio 0.6 L 01/20/22 04:46: Hemoglobin A1c 8.5 H 01/20/22 06:25: POC Glucose 208 H Radiography Diagnostic Testing: Radiology Impression Foot X-Ray 01/20/22 00:41 IMPRESSION: undefined Physical Exam Narrative General: Awake alert and oriented x3 HEENT: Atraumatic, PERRLA, EOMI, Normocephalic Oral: Oral mucosa moist. No gingivitis. Neck: Supple, No JVD, Negative Carotid Bruits Lungs: Air entry diminished in bilateral lung bases. No crepitation/rhonchi Cardiovascular: Regular rate, Regular Rhythm, Normal S1, Normal S2, No murmurs Abdomen: Colostomy present. Neurogenic bowel with history of chronic constipation/no bowel emptying. Bowel Sounds Present, Soft, Non Tender, Non-Distended : Neurogenic bladder. Suprapubic catheter with pericatheter rash and subcutaneous tissue/granulation tissue. Mild tenderness around catheter. Extremities: Right lower extremity about one half times bigger than left lower extremity. Skin: Subcutaneous deep to feet ulcer 1 on left first metatarsal of the right heel, status postdebridement. Serous discharge. Erythema, tenderness over left leg below knee. Musculoskeletal/back: Spina bifid right lumbar region. Surgical scar of previous fatty tumor removal possible lipoma. Mild tenderness of lumbar region. Neurological: Cranial nerves II-XII grossly intact, DTR 2+/4 Psych/Mental Status: Flat affect. Assessment & Plan Assessment/Plan (1) Open wound of left foot: (2) Cellulitis: (3) Acidosis, lactic: PLAN: Plan The patient is a 41 y/o F with history of previous osteomyelitis admitted with increased pain, fever, drainage and spreading redness up her left leg acid with nausea without vomiting. #1. Left foot diabetic ulcer complicated with left lower extremity cellulitis and Lactic acidosis: There is subcutaneous ulcer on the left metatarsal head and on the plantar heel with nonviable tissue and callus formation. Patient had bedside debridement by warehouse helper. No probe to bone but there is serous discharge. X-ray foot showed no gas or clear evidence of osteomyelitis. MRI is ordered. On IV Zyvox and Zosyn. Patient has allergic rash with vancomycin. #2. Spina Bifida with Neurogenic Bowel/Bladder with chronic Suprapubic Catheter with history of frequent UTI, colonization and pericatheter skin irritation: ID is consulted. Dressing change. Wound consult. #3. CKD stage II with mild proteinuria: I do not think patient has acute kidney injury, does not meet the criteria. Baseline kidney function with creatinine clearance fluctuates between 60?70 mL/min. Admission BUN/creatinine 15/1.15, baseline renal function primarily 0.8-1. Creatinine back to the baseline. Patient is on Lasix 40 mg a.m. and 20 mg p.m. Hold Lasix today and start 40 g IV daily and titrate as per kidney function, volume status and electrolytes. #4. Hypertension: Home antihypertensive medications lisinopril, Lasix, prop ranolol continued with holding parameters. #5. Hyperlipidemia: Continue home statin regimen. #6. Obesity: Weight loss and lifestyle changes encouraged. #7. Diabetes mellitus type II with hyperglycemia: Hold oral regimen, continue home insulin regimen with adjustments as needed given acute infectious presentation, ADA diet, accu checks with sliding scale insulin. A1c high, 8.5%. #8. Anxiety and Depression/Panic attacks: continue q HS trazodone regimen #9. Chronic normocytic anemia: Admission hemoglobin 11.3, baseline 11-12. Monitor CBC #10. DVT prophylaxis: SCDs, Lovenox. Total time of the visit including total time spent in counseling or coordination of care, (more than 50% of the total time, spent in obtaining medical information from nurses and other ancillary care providers,explaining to the patient about labs, imaging, diagnosis and management of active complex medical conditions), discussion with consultants, update given to patient and her boyfriend, review of labs and imaging is 40 minutes. Charges/Coding Visit Charges Inpatient E&M: 50130 Subs Hosp L3
--- NOTE | 2022-01-20 08:19 | WOUNDNOTE ---
wound photo: left foot
[2022-01-20] MEDS: Morphine 2 MG/ML Syringe IV (08:24)
[2022-01-20] MEDS: Furosemide 40 MG Tablet PO (08:24)
[2022-01-20] MEDS: Ondansetron 4 MG/2 ML Vial IV (08:25)
--- NOTE | 2022-01-20 11:38 | CASEMGMT ---
Addendum entered by Sienna Rodrigues 01/20/22 15:52: Discussed pt comments regarding with SW. Addendum entered by Sienna Rodrigues 01/20/22 15:29: VERNON BENITEZ back into pt room, pt states she has spoke with her and he does not feel comfortable with patient having HHC. She states he was upset that I did not have sharan in him. Explained to pt again that this is extra help. She verbalizes understanding. Will update SW as well. Original Note: VERNON BENITEZ Assessment: Face to Face with pt for initial transition planning/care coordination assessment. VERNON BENITEZ introduced self and role at [facility], pt voices understanding and consents to assessment. Pt is A/O x4 and answers all questions appropriately at this time. Pt sitting up in bed in no distress. Care providers, pharmacy, and demographics verified/updated. Admitting Dx: DM foot infection, cellulitis PCP:Vazquez Specialists:Cory Box, uro at [facility]; иван Hancock; Paramjit, colorectal surgeon Preferred Pharmacy: [facility] Insurance: My Care [facility] Community Plan Prescription Benefit: yes LW/HPOA: Pt denies having a LW/DPOA and denies need for info regarding AD. LNOK: Jay Paiz, ; Kimberley Peñaloza [facility], [place] Living Arrangements: Pt lives with , father and step dtr (every other weekend) in a two story house with 1 step to enter. Pt reports her helps her with all ADL's and IADL's and she denies concerns at home. Transportation: Pt provides transportation for pt. DME/HHC/SNF: Pt has a shower chair, cane, walker and w/c at home. Pt gets her ostomy supplies through [employer] and pt takes care of ordering these. Pt has had HHC in the past but does not know which agency it was from. Pt has been to [facility] and [facility] Rehab. Pt states no concerns with going home at time of dc. Pt states she was hospitalized in October and since that time has seen 1-2 times. She states then she has been having her do the dressing changes with aquacel ag daily. Pt states she now would like to switch from current workforce management consultant to the [facility]. Disccussed having HHC with patient and she states that she has to run everything by her . Typically he wants to do it all himself and have no one else involved. She states if she decides it, there will be a fight. Asked pt if she feels safe at home, she states she does. Pt states she does not smoke cigarettes, drinks alcohol on occasion socially, does not do street drugs or illegal drugs. Pt states I don't even allow that in my house. Pt is aware RN CM will check back with her on the HHC decision, highly encouraged this as an extra set of eyes and assistance for her . Pt states no further concerns/needs. CM to follow. Advised pt to ask CM if any further question/concerns/needs arise, voices understanding. Pt Goal: Home Plan: Home vs Home with HHC.
[2022-01-20] MEDS: Menthol/Lanolin/Calamine/Znox 113 GM Tube 1 APPLIC TOPICAL ×2 (11:46→23:16)
[2022-01-20] MEDS: Tolterodine Tartrate 4 MG CAP.SA PO (11:47)
[2022-01-20] MEDS: Propranolol 10 MG Tablet PO ×2 (11:47→23:35)
[2022-01-20] MEDS: Pantoprazole Sodium 40 MG Tablet PO (11:49)
[2022-01-20 12:07] LABS: M R Staph aureus DNA By PCR POSITIVE (Negative); Staph aureus DNA By PCR POSITIVE (Negative)
[2022-01-20 12:08] LABS: Probe Check PASS
[2022-01-20] MEDS: oxyCODONE 5 MG Tablet PO ×2 (12:21→23:35)
[2022-01-20] MEDS: Acetaminophen 325 MG Tablet 650 MG PO ×2 (12:21→23:35)
[2022-01-20 12:45] LABS: Bedside Glucose 196 mg/dL (74-106)
[2022-01-20 16:45] LABS: Bedside Glucose 199 mg/dL (74-106)
[2022-01-20] MEDS: traZODone 100 MG Tablet PO (23:17)
[2022-01-20] MEDS: Insulin Glargine-YFGN 100 UNIT/ML Pen 30 UNIT SC (23:21)
[2022-01-20] MEDS: Atorvastatin Calcium 80 MG Tablet PO (23:35)
[2022-01-20 23:50] LABS: Bedside Glucose 231 mg/dL (74-106)
[2022-01-21 05:38] LABS: Absolute Neutrophil Count 6.3 X10^3/uL (2.0-7.7); Basophil# 0.08 X10^3/uL; Basophil% 0.7 % (0-1); Eosinophil# 0.27 X10^3/uL; Eosinophils% 2.5 % (0-5); Hematocrit 32.9 % (37-47); Hemoglobin 10.6 g/dL (12.0-15.0); Lymphocyte % 27.9 % (19-41); Mean Corp Hgb Conc 32.2 g/dL (32-36); Mean Corpuscular Hgb 28.8 pg (27.0-32.0); Mean Corpuscular Volume 89.4 fL (81-99); Mean Platelet Vol. 11.4 fl (6.2-12.0); Monocyte# 1.02 X10^3/uL; Monocyte% 9.5 % (0-10); NRBC Flagged by Analyzer 0 % (0-5); Neutrophil # 6.31 X10^3/uL (2.7-7.7); Neutrophil % 58.7 % (47-70); Platelet Count 247 K/mm3 (150-450); RBC Distribution Width CV 13.9 % (11.6-14.6); RBC Distribution Width SD 45.4 fl (35.1-43.9); Red Blood Count 3.68 M/mm3 (4.2-5.4); White Blood Count 10.8 K/mm3 (4.4-11.0)
[2022-01-21 06:00] LABS: Anion Gap 4 (5-15); BUN 13 mg/dL (7-18); BUN/Creat Ratio 12.3 RATIO (10-20); Calcium,Total 8.3 mg/dL (8.5-10.1); Chloride 107 mmol/L (98-107); Creatinine, Serum 1.06 mg/dL (0.55-1.02); EST Glomerular Filtration Rate 61 mL/min (>60); Est Glom Filt Rate - Afr Amer 74 mL/min (>60); Glucose 110 mg/dL (74-106); Sodium Level 137 mmol/L (136-145)
[2022-01-21 06:41] VITALS: BP 95/62; PULSE 60; RESP 16; TEMP 36.3; O2SAT 97
[2022-01-21 07:05] LABS: Bedside Glucose 105 mg/dL (74-106)
--- NOTE | 2022-01-21 07:11 | PCM.PROGNOTE ---
Subjective Subjective Patient was seen this morning for follow up on left foot and leg. Cellulitis is improving. She is resting in bed. She had MRI on left foot - no evidence of osteomyelitis. No fever at this time. Objective Data Objective Data Vital Signs: Vital Signs Temp Pulse Resp BP Pulse Ox O2 Del Method 97.4 F L 60 16 95/62 97 Room Air 01/21/22 06:41 01/21/22 06:41 01/21/22 06:41 01/21/22 06:41 01/21/22 06:41 01/21/22 06:41 Oxygen Delivery Method Room Air Weight: 92 kg Body Mass Index (BMI) 36.8 Intake & Output: Intake and Output for Last 24 Hours 01/19/22 01/20/22 01/21/22 23:59 23:59 23:59 Intake Total 5407.0 / 5407.0 73.25 / 73.25 Output Total 4900 / 4900 150 / 150 Balance 507.0 / 507.0 -76.75 / -76.75 Lab / Micro Data Result Diagrams: 01/21/22 04:38 01/21/22 04:38 Labs: Laboratory Results - last 24 hr 01/20/22 04:15: S.aureus Protein A PCR POSITIVE H, MRSA (PCR) POSITIVE H 01/20/22 04:46: Hemoglobin A1c 8.5 H 01/20/22 07:00: S.aureus Protein A PCR Cancelled, MRSA (PCR) Cancelled 01/20/22 12:14: POC Glucose 196 H 01/20/22 16:26: POC Glucose 199 H 01/20/22 23:21: POC Glucose 231 H 01/21/22 04:38: WBC 10.8, RBC 3.68 L, Hgb 10.6 L, Hct 32.9 L, MCV 89.4, MCH 28.8, MCHC 32.2 D, RDW Std Deviation 45.4 H, RDW Coeff of Claude 13.9, Plt Count 247, MPV 11.4, Immature Gran % (Auto) 0.700, Neut % (Auto) 58.7, Lymph % (Auto) 27.9, Josephine % (Auto) 9.5, Eos % (Auto) 2.5, Baso % (Auto) 0.7, Absolute Neuts (auto) 6.3, Absolute Lymphs (auto) 3.00, Nucleated RBC % 0 01/21/22 04:38: Sodium 137, Potassium 4.0, Chloride 107, Carbon Dioxide 26.0, Anion Gap 4 L, BUN 13, Creatinine 1.06 H, Estim Creat Clear Calc 55.80, Est GFR (MDRD) Af Amer 74, Est GFR (MDRD) Non-Af 61, BUN/Creatinine Ratio 12.3, Glucose 110 H, Calcium 8.3 L 01/21/22 06:43: POC Glucose 105 Micro: Microbiology 01/20/22 07:00 Wound - Left Foot Gram Stain - Final 01/20/22 04:15 Wound - Left Foot Gram Stain - Final Radiography Diagnostic Testing: Radiology Impression Lower Extremity MRI 01/20/22 07:12 IMPRESSION: Edema in the plantar heel pad and in the subcutis adipose space plantar to the first metatarsophalangeal joint and first proximal phalanx without demonstrated soft tissue abscess or osteomyelitis. Mild arthrosis of the first metatarsophalangeal joint and arthrosis of the tibial sesamoid-first metatarsal articulation. Atrophy of the intrinsic muscles of the foot suggestive of peripheral neuropathy. Electronically Signed: Farhan Rivera MD at 13:29 EDT , Physical Exam Const alert, oriented x3 and no apparent distress Extremity Extremity Narrative: Left foot with ulceration sub 1st met head and also to plantar heel down to subcutaneous tissue, s/p debridement, tissues healthy and viable, no probe to bone, there is some serous drainage, no fluctuance, no crepitus, no visible abscess, there is some cellulitis to the leg. CFT < 2 seconds to all toes, with no evidence of acute ischemia to the left foot. Peripheral neuropathy present to the left foot. Assessment & Plan Assessment/Plan (1) Cellulitis: (2) Open wound of left foot: (3) Diabetic polyneuropathy: QUALIFIERS: Diabetes mellitus type: type 2 Qualified Code(s): E11.42 - Type 2 diabetes mellitus with diabetic polyneuropathy (4) Diabetic foot infection: (5) Type 2 diabetes mellitus with foot ulcer: PLAN: Plan Re-evaluation performed. Reviewed diagnostic data. Culture has been obtained left foot ulcerations - MRSA on PCR Patient is on IV antibiotic therapy, Linezolid & Zosyn at this time. MRI left foot was ordered and results reviewed - no evidence of osteomyelitis - no abscess. Ordered LEAS - but since patient is on contact precautions ok to hold off on updated leas at this time. Wound care: Aquacel Ag and overlying gauze, kerlix and richard dressing - change daily. No weightbearing left foot. Podiatry will continue to follow.
[2022-01-21 08:47] VITALS: BP 98/61; PULSE 58; RESP 16; TEMP 36.4; O2SAT 100
[2022-01-21] MEDS: Tolterodine Tartrate 4 MG CAP.SA PO ×2 (08:56→08:57)
[2022-01-21] MEDS: Pantoprazole Sodium 40 MG Tablet PO (08:57)
[2022-01-21] MEDS: Linezolid 600 MG 600 MG/300 ML BAG 200 MG IV (08:58)
--- NOTE | 2022-01-21 09:28 | DCINST_ITS ---
Discharge Instructions Diet Discharge Diet: Low fat / Low cholesterol, 1800 Calorie Control Diet and 2000 mg Sodium Diet Activity Discharge Activity: Return to Normal Activity and May Not Drive Weight Bearing Status: No weight bearing (On left foot) Dressing / Incision Call your doctor if you observe: Fever of 101 or Higher, Coldness, Increased Pain, Numbness or Tingling, Change in Color, Inability to urinate, Inability to have a bowel movement, Using more than 1 pad per hour, Shortness of breath, Dizziness, Fainting spells, Swelling in the ankles, Chest pain, Prolonged hiccupping, Increased palpitations (irregular heartbeat), Calf discomfort and Uncontrolled pain Follow Up Care Test Results: Test results from this visit will be discussed in further detail at your follow- up appointment, if applicable. Discharge Plan Admission Admit Date/Time: 01/20/22 02:04 Primary Reason for Your Visit: Left foot diabetic ulcer with surrounding cellulitis Attending Provider: Mason Cornejo Primary Care Provider: Will Shukla Consulting Providers: Will Guo ; Ny Anderson ; Alpesh Alex Instructions Additional Instructions / Restrictions: Advised to hold lisinopril if SBP less than 130 and hold Inderal for heart less than 60 or systolic blood pressure less than 100 mmHg. Hold insulin and glimepiride if glucose less than 130 mg/dl Discharge Orders/Prescriptions Prescriptions: New amoxicillin-pot clavulanate 875-125 mg tablet 1 tab PO BID Qty: 10 0RF doxycycline hyclate 100 mg capsule 100 mg PO BID Qty: 10 0RF sennosides-docusate sodium [Stool Softener-Stimulant Laxat] 8.6-50 mg Tablet 2 tab PO BID PRN (Reason: CONSTIPATION) Qty: 0 0RF Continued insulin aspart (niacinamide) 100 unit/mL (3 mL) insulin pen 0 - 100 ml subcut PRN PRN (Reason: Hyperglycemia) Label Comments: Inject 8-18 Units subcutaneously three times daily before meals. (Includes SS # 2 QAC -> Pt. aware of details.) MAX TDD = 55 UNITS / DAY. E1 Rx Instructions: 15 PLUS SLIDING SCALE. atorvastatin 80 mg tablet 80 mg PO DAILY Label Comments: Take 1 tablet by mouth once daily. (DME) pen needle, diabetic [BD Ultra-Fine Hope Pen Needle] 32 gauge x 5/32 needle See Rx Instructions .ROUTE .MEDSUPPLY Qty: 400 6RF Rx Instructions: 4x/day furosemide 20 MG tablet 20 mg PO 2200 Hold Instructions: Resume on 11/24/21. Rx Instructions: 20 mg in the evening furosemide 40 MG tablet 40 mg PO BREAKFAST Hold Instructions: Resume on 11/24/21. oxybutynin chloride 15 mg tablet extended release 24hr 15 mg PO DAILY acetaminophen 500 MG tablet 1,000 mg PO TID PRN PRN (Reason: Pain Or Fever) trazodone 100 mg tablet 100 mg PO QHS Label Comments: Take 1 tablet by mouth daily at bedtime. phenazopyridine [Pyridium] 200 MG tablet 200 mg PO BID PRN PRN (Reason: Pain) glimepiride 2 mg tablet 2 mg PO BID Qty: 180 3RF Rx Instructions: Hold if glucose less than 130 mg/dl Changed propranolol 10 MG tablet 5 mg PO BID Qty: 30 0RF Rx Instructions: Hold for heart less than 60 or systolic blood pressure less than 100 mmHg. lisinopril 5 mg tablet 2.5 mg PO DAILY Qty: 90 3RF Rx Instructions: Hold for SBP less than 130 mmHg insulin glargine [Lantus Solostar U-100 Insulin] 100 unit/mL (3 mL) insulin pen 25 unit SC QHS Qty: 15 0RF Rx Instructions: Hold if glucose less than 130 mg/dl Referrals / Follow Up: Will Shukla MD [Primary Care Provider] - Within 2 Weeks Will Guo DPM [Med Staff - Active Staff] - Within 1 Week Alpesh lAex MD [Med Staff - Active Staff] - Within 1 Month ( NEEDED FOR Concern of foot infection and antibiotic's issues) Disposition Disposition (needs filled in before D/C Order can be placed): Home, Self Care
[2022-01-21 09:37] VITALS: O2SAT 99
[2022-01-21 10:34] VITALS: BP 89/54; PULSE 66; RESP 16; O2SAT 100
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
--- NOTE | 2022-01-21 11:30 | DS.PCM_ITS ---
Providers Date of Admission: 01/20/22 Date of Discharge: 01/21/22 Primary Care Physician: Dr. Will Shukla MD Consultations 01/20/22 04:30 Consult: Onc/Wound/informatics pharmacist Routine Comment: Reason for Consult:: left foot wound 01/20/22 07:00 Consult: Podiatry Routine Consulting Provider: Will Guo Reason for Consult: Diabetic foot LLE with cellulitis EMERGENT Consult: No MD Notified: Yes Date Notified: 01/20/22 Time Notified: 06:14 Method of Notification: Text 01/20/22 09:12 Consult: Infectious Disease Routine Consulting Provider: Alpesh Alex Reason for Consult: diabetic left foot ulcer, suprapubic cath, colonization Hx EMERGENT Consult: No MD Notified: Yes Date Notified: 01/20/22 Time Notified: 09:12 Method of Notification: Text Reason For Visit: DIABETIC FOOT INFECTION, CELLULITIS Diagnosis Discharge Diagnosis (1) Cellulitis: Status: Acute Code(s): L03.90 - Cellulitis, unspecified (2) Open wound of left foot: Status: Acute Code(s): S91.302A - Unspecified open wound, left foot, initial encounter (3) Diabetic polyneuropathy: Status: Chronic Code(s): E11.42 - Type 2 diabetes mellitus with diabetic polyneuropathy Qualifiers: Diabetes mellitus type: type 2 Qualified Code(s): E11.42 - Type 2 diabetes mellitus with diabetic polyneuropathy (4) Diabetic foot infection: Status: Acute Code(s): E11.628 - Type 2 diabetes mellitus with other skin complications; L08.9 - Local infection of the skin and subcutaneous tissue, unspecified (5) Type 2 diabetes mellitus with foot ulcer: Status: Acute Code(s): E11.621 - Type 2 diabetes mellitus with foot ulcer; L97.509 - Non-pressure chronic ulcer of other part of unspecified foot with unspecified severity Medications at Discharge Home Medications furosemide 20 mg tablet 20 mg PO 2200 fluid 08/28/18 furosemide 40 mg tablet 40 mg PO BREAKFAST fluid 04/05/19 oxybutynin chloride 15 mg tablet,extended release 24 hr 15 mg PO DAILY bladder 11/12/19 acetaminophen 500 mg tablet 1,000 mg PO TID PRN PRN Pain Or Fever 02/12/20 trazodone 100 mg tablet 100 mg PO QHS sleep 01/19/21 atorvastatin 80 mg tablet 80 mg PO DAILY cholesterol 01/29/21 insulin aspart (niacinamide)(U-100) 100 unit/mL(3 mL) subcutaneous pen 0 - 100 ml subcut PRN PRN Hyperglycemia 01/29/21 pen needle, diabetic 32 gauge x 5/32 (BD Ultra-Fine Hope Pen Needle) #400 ea 03/05/21 phenazopyridine 200 mg tablet (Pyridium) 200 mg PO BID PRN PRN Pain 11/20/21 amoxicillin 875 mg-potassium clavulanate 125 mg tablet 1 tab PO BID #10 tabs 01/21/22 doxycycline hyclate 100 mg capsule 100 mg PO BID #10 caps 01/21/22 glimepiride 2 mg tablet 2 mg PO BID #180 tabs 01/21/22 insulin glargine 100 unit/mL (3 mL) subcutaneous pen (Lantus Solostar U-100 Insulin) 25 unit (0.25 mL) subcut QHS dm #15 mL 01/21/22 lisinopril 5 mg tablet 2.5 mg PO DAILY #90 tabs 01/21/22 mupirocin 2 % topical ointment 1 applic topical BID #22 grams 01/21/22 propranolol 10 mg tablet 5 mg PO BID heart #30 tabs 01/21/22 sennosides 8.6 mg-docusate sodium 50 mg tablet (Stool Softener-Stimulant Laxative) 2 tab PO BID PRN CONSTIPATION #0 tabs 01/21/22 Hospital Course Summary of Care Provided Hospital Course: The patient is a 41 y/o F with history of previous osteomyelitis admitted with increased pain, fever, drainage and spreading redness up her left leg acid with nausea without vomiting. #1. Left foot diabetic ulcer complicated with left lower extremity cellulitis and Lactic acidosis: There is subcutaneous ulcer on the left metatarsal head and on the plantar heel with nonviable tissue and callus formation. Patient had bedside debridement by cook boat. No probe to bone but there is serous discharge. X-ray foot showed no gas or clear evidence of osteomyelitis. On IV Zyvox and Zosyn. Patient has allergic rash with vancomycin. 01/21: Prelim wound culture shows 2+ staph species, 3+ beta Streptococcus, 2+ gram-negative sue. Prelim urine culture staph species more than 100,000 colonies. Discussed with ID. Patient discharged on 5 days of doxycycline and Augmentin. #2. Spina Bifida with Neurogenic Bowel/Bladder with chronic Suprapubic Catheter with history of frequent UTI, colonization and pericatheter skin irritation: ID is consulted. Dressing change. Wound consult. 01/21 mupirocin ointment given for dressing around suprapubic catheter. #3. CKD stage II with mild proteinuria: I do not think patient has acute kidney injury, does not meet the criteria. Baseline kidney function with creatinine clearance fluctuates between 60?70 mL/min. Admission BUN/creatinine 15/1.15, baseline renal function primarily 0.8-1. Creatinine back to the baseline. Patient is on Lasix 40 mg a.m. and 20 mg p.m. Hold Lasix today and start 40 g IV daily and titrate as per kidney function, volume status and electrolytes. Home dose Lasix resumed #4. Hypertension: Home antihypertensive medications lisinopril, Lasix, propranolol continued with holding parameters. #5. Hyperlipidemia: Continue home statin regimen. #6. Obesity: Weight loss and lifestyle changes encouraged. #7. Diabetes mellitus type II with hyperglycemia: Hold oral regimen, continue home insulin regimen with adjustments as needed given acute infectious presentation, ADA diet, accu checks with sliding scale insulin. A1c high, 8.5%. 01/21: Patient had an early childhood worker glucose level 105, 110. Lantus insulin at night decreased. Prescription given. #8. Anxiety and Depression/Panic attacks: continue q HS trazodone regimen #9. Chronic normocytic anemia: Admission hemoglobin 11.3, baseline 11-12. Monitor CBC #10. DVT prophylaxis: SCDs, Lovenox. Discharge medication reconciliation done. Discharge follow-up instructions completed. Discharge process discussed with the patient and all questions were answered to patient's satisfaction. Discharged home Total time spent, exact 35 minutes on discharge meds reconciliation, examination, coordination of care with nurses and ancillary staff, review of imaging and blood test and discussion with the patient on follow-up instructions. Clinical Impression(s) from Imaging Studies Foot X-Ray 01/20/22 00:41 IMPRESSION: undefined Lower Extremity MRI 01/20/22 07:12 IMPRESSION: Edema in the plantar heel pad and in the subcutis adipose space plantar to the first metatarsophalangeal joint and first proximal phalanx without demonstrated soft tissue abscess or osteomyelitis. Mild arthrosis of the first metatarsophalangeal joint and arthrosis of the tibial sesamoid-first metatarsal articulation. Atrophy of the intrinsic muscles of the foot suggestive of peripheral neuropathy. Electronically Signed: Farhan Rivera MD at 13:29 EDT , Physical Exam Narrative Seen and examined on the day of discharge. MRI findings discussed with the patient. No osteomyelitis mild arthrosis of first MTP joint and subcutaneous plane edema. No fever. She wants to go home General: Awake alert and oriented x3 HEENT: Atraumatic, PERRLA, EOMI, Normocephalic Oral: Oral mucosa moist. No gingivitis. Neck: Supple, No JVD, Negative Carotid Bruits Lungs: Air entry diminished in bilateral lung bases. No crepitation/rhonchi Cardiovascular: Regular rate, Regular Rhythm, Normal S1, Normal S2, No murmurs Abdomen: Colostomy present. Neurogenic radha. Bowel Sounds Present, Soft, Non Tender, Non-Distended : Neurogenic bladder. Suprapubic catheter with pericatheter rash and everted granulation tissue. Mild tenderness around catheter. Extremities: Right lower extremity about one half times bigger than left lower extremity. Skin: Subcutaneous deep to feet ulcer 1 on left first metatarsal of the right heel, status postdebridement. Serous discharge. Erythema, tenderness over left leg below knee. Musculoskeletal/back: Spina bifid right lumbar region. Surgical scar of previous fatty tumor. Mild tenderness of lumbar region. Neurological: Cranial nerves II-XII grossly intact, DTR 2+/4 Psych/Mental Status: Normal affect. Weight / BMI Weight Weight: 202 lb 13.204 oz Body Mass Index (BMI) 36.8 ABG / Lab / Microbiology Data Result Diagrams: 01/21/22 04:38 01/21/22 04:38 Laboratory: Laboratory Results - last 24 hr 01/20/22 04:15: S.aureus Protein A PCR POSITIVE H, MRSA (PCR) POSITIVE H 01/20/22 07:00: S.aureus Protein A PCR Cancelled, MRSA (PCR) Cancelled 01/20/22 12:14: POC Glucose 196 H 01/20/22 16:26: POC Glucose 199 H 01/20/22 23:21: POC Glucose 231 H 01/21/22 04:38: WBC 10.8, RBC 3.68 L, Hgb 10.6 L, Hct 32.9 L, MCV 89.4, MCH 28.8, MCHC 32.2 D, RDW Std Deviation 45.4 H, RDW Coeff of Claude 13.9, Plt Count 247, MPV 11.4, Immature Gran % (Auto) 0.700, Neut % (Auto) 58.7, Lymph % (Auto) 27.9, Morrill % (Auto) 9.5, Eos % (Auto) 2.5, Baso % (Auto) 0.7, Absolute Neuts (auto) 6.3, Absolute Lymphs (auto) 3.00, Nucleated RBC % 0 01/21/22 04:38: Sodium 137, Potassium 4.0, Chloride 107, Carbon Dioxide 26.0, Anion Gap 4 L, BUN 13, Creatinine 1.06 H, Estim Creat Clear Calc 55.80, Est GFR (MDRD) Af Amer 74, Est GFR (MDRD) Non-Af 61, BUN/Creatinine Ratio 12.3, Glucose 110 H, Calcium 8.3 L 01/21/22 06:43: POC Glucose 105 Microbiology: Microbiology 01/20/22 07:00 Wound - Left Foot Gram Stain - Final 01/20/22 04:15 Wound - Left Foot Gram Stain - Final Radiography Diagnostic Testing: Radiology Impression Lower Extremity MRI 01/20/22 07:12 IMPRESSION: Edema in the plantar heel pad and in the subcutis adipose space plantar to the first metatarsophalangeal joint and first proximal phalanx without demonstrated soft tissue abscess or osteomyelitis. Mild arthrosis of the first metatarsophalangeal joint and arthrosis of the tibial sesamoid-first metatarsal articulation. Atrophy of the intrinsic muscles of the foot suggestive of peripheral neuropathy. Electronically Signed: Farhan Rivera MD at 13:29 EDT , D/C Instructions Discharge Diet: No restrictions Meaningful Use Info Meaningful Use Diagnoses (Choose all that apply): None applicable Discharge Plan Admission Admit Date/Time: 01/20/22 02:04 Primary Reason for Your Visit: Left foot diabetic ulcer with surrounding cellulitis Attending Provider: Mason Cornejo Primary Care Provider: Will Shukla Consulting Providers: Will Guo ; Ny Anderson ; Alpesh Alex Instructions Additional Instructions / Restrictions: Advised to hold lisinopril if SBP less than 130 and hold Inderal for heart less than 60 or systolic blood pressure less than 100 mmHg. Hold insulin and glimepiride if glucose less than 130 mg/dl Discharge Orders/Prescriptions Prescriptions: New amoxicillin-pot clavulanate 875-125 mg tablet 1 tab PO BID Qty: 10 0RF doxycycline hyclate 100 mg capsule 100 mg PO BID Qty: 10 0RF sennosides-docusate sodium [Stool Softener-Stimulant Laxat] 8.6-50 mg Tablet 2 tab PO BID PRN (Reason: CONSTIPATION) Qty: 0 0RF mupirocin 2 % ointment 1 applic topical BID Qty: 22 2RF Rx Instructions: apply around suprapubic catheter for 10 days Continued insulin aspart (niacinamide) 100 unit/mL (3 mL) insulin pen 0 - 100 ml subcut PRN PRN (Reason: Hyperglycemia) Label Comments: Inject 8-18 Units subcutaneously three times daily before meals. (Includes SS # 2 QAC -> Pt. aware of details.) MAX TDD = 55 UNITS / DAY. E1 Rx Instructions: 15 PLUS SLIDING SCALE. atorvastatin 80 mg tablet 80 mg PO DAILY Label Comments: Take 1 tablet by mouth once daily. (DME) pen needle, diabetic [BD Ultra-Fine Hope Pen Needle] 32 gauge x 5/32 needle See Rx Instructions .ROUTE .MEDSUPPLY Qty: 400 6RF Rx Instructions: 4x/day furosemide 20 MG tablet 20 mg PO 2200 Hold Instructions: Resume on 11/24/21. Rx Instructions: 20 mg in the evening furosemide 40 MG tablet 40 mg PO BREAKFAST Hold Instructions: Resume on 11/24/21. oxybutynin chloride 15 mg tablet extended release 24hr 15 mg PO DAILY acetaminophen 500 MG tablet 1,000 mg PO TID PRN PRN (Reason: Pain Or Fever) trazodone 100 mg tablet 100 mg PO QHS Label Comments: Take 1 tablet by mouth daily at bedtime. phenazopyridine [Pyridium] 200 MG tablet 200 mg PO BID PRN PRN (Reason: Pain) glimepiride 2 mg tablet 2 mg PO BID Qty: 180 3RF Rx Instructions: Hold if glucose less than 130 mg/dl Changed propranolol 10 MG tablet 5 mg PO BID Qty: 30 0RF Rx Instructions: Hold for heart less than 60 or systolic blood pressure less than 100 mmHg. lisinopril 5 mg tablet 2.5 mg PO DAILY Qty: 90 3RF Rx Instructions: Hold for SBP less than 130 mmHg insulin glargine [Lantus Solostar U-100 Insulin] 100 unit/mL (3 mL) insulin pen 25 unit SC QHS Qty: 15 0RF Rx Instructions: Hold if glucose less than 130 mg/dl Referrals / Follow Up: Will Shukla MD [Primary Care Provider] - 02/03/22 1:40 pm Will Guo DPM [Med Staff - Active Staff] - Within 1 Week Alpesh Alex MD [Med Staff - Active Staff] - Within 1 Month ( NEEDED FOR Concern of foot infection and antibiotic's issues) Disposition Disposition (needs filled in before D/C Order can be placed): Home, Self Care Charges/Coding Visit Charges Inpatient E&M: 84662 Disch Hosp
[2022-01-21 12:00] LABS: Bedside Glucose 210 mg/dL (74-106)
--- NOTE | 2022-01-21 12:22 | CASEMGMT ---
Social Work SW asked to leave so SW could speak w/pt about mental health, did leave willingly. SW spoke w/pt about mental health. Pt states she has been diagnosed with depression and anxiety in the past, states has been in counseling in the past. She states she has not been in counseling recently however. She has gone to [facility] in the past. Pt states she was diagnosed with spina bifida eight years ago, and she has had health issues since. She states she did have some health issues prior to this but it was not discovered she had spina bifida until she was about to turn 33. Pt talked about how this was to find out at the age of 33. Support offered. SW inquired if she is interested in resources for counseling, pt declined. She states would go back to [facility] if she felt she needed counseling again. SW inquired about medication. Pt states she has taken medication in in the past for depression and anxiety, is not on anything now. She does not feel the need for medication at this time. SW asked about support at home and safety. Pt denied any concerns of safety at home, states things at home are good. Pt states lives w/, 16 year old step daughter, and her father. She states they are supportive. Pt declined any referrals at this time. Pt denies any safety concerns at home. SW remains available for any additional support or referrals as needed. TOSIN Mattson
[2022-01-21] MEDS: Insulin Lispro 100 UNIT/ML INSULN.PEN SC (12:48)
--- NOTE | 2022-01-21 13:49 | CON.PCM.ID_ITS ---
Assessment & Plan Assessment/Plan (1) Diabetic foot infection: PLAN: MRI showed no osteo. Wound cx with staph, strep, GNR. Ucx with staph. Sx quickly improved on linezolid/zosyn. OK for home with 5 days doxy and augmentin. Has tolerated augmentin with no issue in past. Will follow as needed, thank you, d/w Dr. Cornejo (2) Urinary tract infection: QUALIFIERS: Urinary tract infection type: catheter-associated UTI Indwelling urinary catheter type: indwelling urethral catheter Encounter type: initial encounter Qualified Code(s): T83.511A - Infection and inflammatory reaction due to indwelling urethral catheter, initial encounter; N39.0 - Urinary tract infection, site not specified HPI Consult Data Date of Consult: 01/21/22 HPI Narrative Reason for Consultation: cellulitis HPI Narrative: HEBER BAILON, is a 41 F with h/o spina bifida, DM, suprapubic catheter, presented 01/20 with one day of fatigue, LLE redness/pain/swelling. Had some pain in bladder. Some chills, no fever. Came to ED, admitted on linez olid/zosyn, feeling much better rapidly. Full ROS performed and neg except as noted above. [facility]LY [facility] Medical History Anxiety and depression Arthritis Manley's palsy Cellulitis of left lower extremity Chronic back pain Chronic nausea Colostomy in place Constipation Delayed wound healing Diabetes mellitus, type II Diabetic polyneuropathy Diabetic ulcer of left heel with fat layer exposed DJD (degenerative joint disease) of thoracic spine Dysthymic disorder Essential hypertension Hematochezia History of kidney stones History of migraine Hydronephrosis of right kidney Hyperglycemia Hyperlipidemia Infection of bladder catheter Insomnia Lipomeningocele Lower extremity edema Morbid obesity with BMI of 40.0-44.9, adult Neurogenic bladder Neurogenic bowel Non-compliance Non-smoker Normochromic normocytic anemia Panic attacks PSVT (paroxysmal supraventricular tachycardia) Sepsis Sepsis Spina bifida aperta of lumbar spine Thyroid cyst Type 2 diabetes mellitus with diabetic polyneuropathy Ulcer of left heel and midfoot with fat layer exposed Uninodular goiter Urinary tract infection UTI (urinary tract infection) UTI (urinary tract infection) Weakness Home Medications furosemide 20 mg tablet 20 mg PO 2200 fluid 08/28/18 [History Last Taken 01/18/22] furosemide 40 mg tablet 40 mg PO BREAKFAST fluid 04/05/19 [History Last Taken 01/19/22] insulin glargine 100 unit/mL (3 mL) subcutaneous pen (Lantus Solostar U-100 Insulin) 30 unit subcut QHS dm 11/01/19 [History Last Taken 01/18/22] oxybutynin chloride 15 mg tablet,extended release 24 hr 15 mg PO DAILY bladder 11/12/19 [History Last Taken 01/19/22] propranolol 10 mg tablet 10 mg PO BID heart 01/13/20 [History Last Taken 01/19/22] acetaminophen 500 mg tablet 1,000 mg PO TID PRN PRN Pain Or Fever 02/12/20 [History Last Taken 09/24/20 19:24] trazodone 100 mg tablet 100 mg PO QHS sleep 01/19/21 [History Last Taken Unknown] atorvastatin 80 mg tablet 80 mg PO DAILY cholesterol 01/29/21 [History Last Taken 01/19/22] insulin aspart (niacinamide)(U-100) 100 unit/mL(3 mL) subcutaneous pen 0 - 100 ml subcut PRN PRN Hyperglycemia 01/29/21 [History Last Taken Unknown] lisinopril 5 mg tablet 5 mg PO DAILY #90 tabs 01/29/21 [Rx Last Taken 01/19/22] pen needle, diabetic 32 gauge x 5/32 (BD Ultra-Fine Hope Pen Needle) #400 ea 03/05/21 [Rx Last Taken Unknown] glimepiride 2 mg tablet 2 mg PO BID #180 tabs 03/31/21 [Rx Last Taken 01/19/22] phenazopyridine 200 mg tablet (Pyridium) 200 mg PO BID PRN PRN Pain 11/20/21 [History Last Taken Unknown] amoxicillin 875 mg-potassium clavulanate 125 mg tablet 1 tab PO BID #10 tabs 01/21/22 [Rx Last Taken Unknown] doxycycline hyclate 100 mg capsule 100 mg PO BID #10 caps 01/21/22 [Rx Last Taken Unknown] Allergy/AdvReac Type Severity Reaction Status Date / Time ceftriaxone [From Rocephin] Allergy Hives Verified 01/13/22 11:30 mushroom Allergy Anaphylaxis Verified 01/13/22 11:30 peanut Allergy Anaphylaxis Verified 01/13/22 11:30 fentanyl AdvReac Low blood Verified 01/13/22 11:30 pressure Gadolinium-MRI Contrast AdvReac Vomiting Verified 01/13/22 11:30 Medium Latex, Natural Rubber AdvReac Rash Verified 01/13/22 11:30 vancomycin AdvReac Rash Verified 01/20/22 01:19 Family History Mother CVA (cerebral vascular accident) Thyroid disorder Diabetes Hypertension Heart disease Hyperlipidemia Myocardial infarction, Onset Age: 54 mother had diabetes Father Cancer skin Grandmother Cancer liver Other Arthritis Skin cancer Surgical History history insertion suprapubic catheter History of cholecystectomy History of dilation and curettage History of spinal surgery Hx of foot surgery Hx of ventral hernia repair S/P colostomy S/P thyroid biopsy (~11/06/19) Status post gastric surgery Social History household members: significant other Smoking Status: Never smoker alcohol intake: current substance use type: does not use Physical Exam Const alert, oriented x3 and no apparent distress General Appearance: cooperative HEENT normocephalic and head/scalp atraumatic Eyes PERRL and EOMs intact bilaterally Neck supple and No nodes Resp normal air movement and clear to auscultation bilaterally Cardio regular rate and regular rhythm GI soft to palpation, non-tender and non-distended Extremity General Extremity: edema Skin Skin Narrative: Reviewed photos L foot Neuro CN's II-XII intact bilaterally Lab / Micro Data Attestation: I reviewed the patient's lab results. Result Diagrams: 01/21/22 04:38 01/21/22 04:38 Labs: Laboratory Results - last 24 hr 01/20/22 07:00: S.aureus Protein A PCR Cancelled, MRSA (PCR) Cancelled 01/20/22 16:26: POC Glucose 199 H 01/20/22 23:21: POC Glucose 231 H 01/21/22 04:38: WBC 10.8, RBC 3.68 L, Hgb 10.6 L, Hct 32.9 L, MCV 89.4, MCH 28.8, MCHC 32.2 D, RDW Std Deviation 45.4 H, RDW Coeff of Claude 13.9, Plt Count 247, MPV 11.4, Immature Gran % (Auto) 0.700, Neut % (Auto) 58.7, Lymph % (Auto) 27.9, [place] % (Auto) 9.5, Eos % (Auto) 2.5, Baso % (Auto) 0.7, Absolute Neuts (auto) 6.3, Absolute Lymphs (auto) 3.00, Nucleated RBC % 0 01/21/22 04:38: Sodium 137, Potassium 4.0, Chloride 107, Carbon Dioxide 26.0, Anion Gap 4 L, BUN 13, Creatinine 1.06 H, Estim Creat Clear Calc 55.80, Est GFR (MDRD) Af Amer 74, Est GFR (MDRD) Non-Af 61, BUN/Creatinine Ratio 12.3, Glucose 110 H, Calcium 8.3 L 01/21/22 06:43: POC Glucose 105 01/21/22 11:36: POC Glucose 210 H Micro: Microbiology 01/20/22 07:00 Wound - Left Foot Gram Stain - Final 01/20/22 07:00 Wound - Left Foot Wound Culture - Preliminary Staphylococcus species Beta streptococcus 01/20/22 04:15 Wound - Left Foot Gram Stain - Final 01/20/22 04:15 Wound - Left Foot Wound Culture - Preliminary Gram negative sue Staphylococcus species Beta streptococcus 01/20/22 01:05 Urine, Catheterized Urine Culture - Preliminary Staphylococcus species
[2022-01-21 15:13] VITALS: BP 96/55; PULSE 63; RESP 18; TEMP 36.6; O2SAT 99
== END 2022-01-21 15:53 | disposition home or self-care (01) | DRG 623 ==
LOC: ED 02:01 → MS3 02:37
PROVIDERS: Admitting Provider Family Medicine; Emergency Provider Emergency Medicine; PCP Family Medicine; Visit Provider Internal Medicine
DX: E11.621 Type 2 diabetes mellitus with foot ulcer (principal); L03.116 Cellulitis of left lower limb; E87.2 Acidosis; T83.511A Infection and inflammatory reaction due to indwelling urethral catheter, initial encounter; L97.422 Non-pressure chronic ulcer of left heel and midfoot with fat layer exposed; N39.0 Urinary tract infection, site not specified; E11.22 Type 2 diabetes mellitus with diabetic chronic kidney disease; B95.5 Unspecified streptococcus as the cause of diseases classified elsewhere; E11.628 Type 2 diabetes mellitus with other skin complications; L97.522 Non-pressure chronic ulcer of other part of left foot with fat layer exposed; Z79.4 Long term (current) use of insulin; E11.65 Type 2 diabetes mellitus with hyperglycemia; E11.42 Type 2 diabetes mellitus with diabetic polyneuropathy; Q05.9 Spina bifida, unspecified; Z93.3 Colostomy status; E78.5 Hyperlipidemia, unspecified; I12.9 Hypertensive chronic kidney disease with stage 1 through stage 4 chronic kidney disease, or unspecified chronic kidney disease; M19.079 Primary osteoarthritis, unspecified ankle and foot; M62.579 Muscle wasting and atrophy, not elsewhere classified, unspecified ankle and foot; D64.9 Anemia, unspecified; N18.2 Chronic kidney disease, stage 2 (mild); B95.62 Methicillin resistant Staphylococcus aureus infection as the cause of diseases classified elsewhere; G47.00 Insomnia, unspecified; R80.9 Proteinuria, unspecified; G89.29 Other chronic pain; F34.1 Dysthymic disorder; F41.0 Panic disorder [episodic paroxysmal anxiety]; Z87.440 Personal history of urinary (tract) infections
CPT/HCPCS: 36415; 73630; 73718; 80048; 80053; 81001; 82962; 83036; 83605; 85025; 85610; 85652; 85730; 86140; 87040; 87070; 87075; 87077; 87086; 87088; 87186; 87205; 87640; 93005; 99285; J2020; J7030; J7040; J7050; A4216; J2405

== ENCOUNTER 2022-03-22 00:09 | Emergency (ER) | payer MEDICARE, MEDICAID, SELFPAY ==
[2022-03-22 00:10] VITALS: BP 118/90; PULSE 84; RESP 18; TEMP 36.3; O2SAT 97; BMI 36.3
--- NOTE | 2022-03-22 01:18 | EDS_ITS ---
HPI History of Present Illness Chief Complaint: General Illness Informant: patient Onset/Context/Timing Onset: Days Context: Gradual Onset Timing: Continuous Current Severity: Mild Maximum Severity: Mild Narrative Narrative: 41-year-old female history of diabetes, anxiety and depression, anemia, chronic indrawing Morales catheter from spina bifida. Chronic left foot wound. States she has had bilateral flank pain. Is concerned that she might also have cellulitis secondary to the wounds on her left foot which are currently being taken care of by her stone polisher hand. States she had nausea and vomiting last 3 days. Denies any fever. No diarrhea. No melena. No abdominal pain. Prior similar symptoms: Yes Recent Illness/Hospitalization: No PFSH PFSH Medical History Anxiety and depression Arthritis Manley's palsy Cellulitis of left lower extremity Chronic back pain Chronic nausea Colostomy in place Constipation Delayed wound healing Diabetes mellitus, type II Diabetic foot infection Diabetic polyneuropathy Diabetic ulcer of left heel with fat layer exposed DJD (degenerative joint disease) of thoracic spine Dysthymic disorder Essential hypertension Hematochezia History of kidney stones History of migraine Hydronephrosis of right kidney Hyperglycemia Hyperlipidemia Infection of bladder catheter Insomnia Lipomeningocele Lower extremity edema Morbid obesity with BMI of 40.0-44.9, adult Neurogenic bladder Neurogenic bowel Non-compliance Non-smoker Normochromic normocytic anemia Open wound of left foot Panic attacks PSVT (paroxysmal supraventricular tachycardia) Sepsis Sepsis Spina bifida aperta of lumbar spine Thyroid cyst Type 2 diabetes mellitus with diabetic polyneuropathy Type 2 diabetes mellitus with foot ulcer Ulcer of left heel and midfoot with fat layer exposed Uninodular goiter Urinary tract infection Urinary tract infection UTI (urinary tract infection) UTI (urinary tract infection) Weakness Home Medications furosemide 20 mg tablet 20 mg PO 2200 fluid 08/28/18 [History Last Taken 01/18/22] furosemide 40 mg tablet 40 mg PO BREAKFAST fluid 04/05/19 [History Last Taken 01/19/22] oxybutynin chloride 15 mg tablet,extended release 24 hr 15 mg PO DAILY bladder 11/12/19 [History Last Taken 01/19/22] acetaminophen 500 mg tablet 1,000 mg PO TID PRN PRN Pain Or Fever 02/12/20 [History Last Taken 09/24/20 19:24] trazodone 100 mg tablet 100 mg PO QHS sleep 01/19/21 [History Last Taken Unknown] atorvastatin 80 mg tablet 80 mg PO DAILY cholesterol 01/29/21 [History Last Taken 01/19/22] insulin aspart (niacinamide)(U-100) 100 unit/mL(3 mL) subcutaneous pen 0 - 100 ml subcut PRN PRN Hyperglycemia 01/29/21 [History Last Taken Unknown] pen needle, diabetic 32 gauge x 5/32 (BD Ultra-Fine Hope Pen Needle) #400 ea 03/05/21 [Rx Last Taken Unknown] phenazopyridine 200 mg tablet (Pyridium) 200 mg PO BID PRN PRN Pain 11/20/21 [History Last Taken Unknown] amoxicillin 875 mg-potassium clavulanate 125 mg tablet 1 tab PO BID #10 tabs 01/21/22 [Rx Last Taken Unknown] doxycycline hyclate 100 mg capsule 100 mg PO BID #10 caps 01/21/22 [Rx Last Taken Unknown] glimepiride 2 mg tablet 2 mg PO BID #180 tabs 01/21/22 [Rx Last Taken 01/19/22] insulin glargine 100 unit/mL (3 mL) subcutaneous pen (Lantus Solostar U-100 Insulin) 25 unit (0.25 mL) subcut QHS dm #15 mL 01/21/22 [Rx Last Taken 01/18/22] lisinopril 5 mg tablet 2.5 mg PO DAILY #90 tabs 01/21/22 [Rx Last Taken 01/19/22] mupirocin 2 % topical ointment 1 applic topical BID #22 grams 01/21/22 [Rx Last Taken Unknown] propranolol 10 mg tablet 5 mg PO BID heart #30 tabs 01/21/22 [Rx Last Taken 01/19/22] sennosides 8.6 mg-docusate sodium 50 mg tablet (Stool Softener-Stimulant Laxative) 2 tab PO BID PRN CONSTIPATION #0 tabs 01/21/22 [Rx Last Taken Unknown] ondansetron 4 mg disintegrating tablet 4 mg PO Q6H PRN nausea and vomiting #7 tabs 03/22/22 [Rx Last Taken Unknown] sulfamethoxazole 800 mg-trimethoprim 160 mg tablet (Bactrim DS) 1 tab PO BID 10 days #20 tabs 03/22/22 [Rx Last Taken Unknown] Allergy/AdvReac Type Severity Reaction Status Date / Time ceftriaxone [From Rocephin] Allergy Hives Verified 03/22/22 00:10 mushroom Allergy Anaphylaxis Verified 03/22/22 00:10 peanut Allergy Anaphylaxis Verified 03/22/22 00:10 fentanyl AdvReac Low blood Verified 03/22/22 00:10 pressure Gadolinium-MRI Contrast AdvReac Vomiting Verified 03/22/22 00:10 Medium Latex, Natural Rubber AdvReac Rash Verified 03/22/22 00:10 vancomycin AdvReac Rash Verified 03/22/22 00:10 Family History Mother CVA (cerebral vascular accident) Thyroid disorder Diabetes Hypertension Heart disease Hyperlipidemia Myocardial infarction, Onset Age: 54 mother had diabetes Father Cancer skin Grandmother Cancer liver Other Arthritis Skin cancer Surgical History history insertion suprapubic catheter History of cholecystectomy History of dilation and curettage History of spinal surgery Hx of foot surgery Hx of ventral hernia repair S/P colostomy S/P thyroid biopsy (~11/06/19) Status post gastric surgery Social History household members: significant other Smoking Status: Never smoker alcohol intake: current substance use type: does not use ROS ROS ED ROS Narrative Nausea and vomiting. Flank pain. Review of Systems ROS Unobtainable: Denies due to encephalopathy Constitutional Constitutional ED: Denies chills or fever(s) Eyes Eyes: Denies blurry vision ENT ENT ED: Denies ear pain Cardiovascular Cardiovascular: Denies chest pain Respiratory/Chest Respiratory/Chest: Denies cough or dyspnea Gastrointestinal Gastrointestinal: Reports nausea and vomiting; Denies abdominal pain, constipation, diarrhea or melena Genitourinary Genitourinary ED: Denies dysuria or hematuria Musculoskeletal Musculoskeletal: Denies arthralgias Integumentary Denies abscess Neurologic Neurologic: Denies headache(s) Psychiatric Psychiatric: Denies anxiety Endocrine Endocrinology: Denies cold intolerance Hematologic/Lymphatic Hematologic/Lymphatic: Reports anemia Allergic/Immunologic Allergic/Immunologic ED: Denies mouth swelling or tongue swelling EXAM Physical Exam Narrative Exam Narrative: Middle-aged female no acute distress. Vital signs are stable and afebrile. Pulse ox 97% room air no signs hypoxia. H EENT exam unremarkable. Moist Riis members. Neck nontender no lymphadenopathy. Lungs clear to auscultation bilaterally. Heart regular rhythm no murmur. Abdomen soft nontender. Normal bowel sounds no peritoneal signs. Back nontender. No CVA tenderness. Moving all 4 extremities. Normal strength. Left heel and left pad of the great toes she has chronic ulcerations. There is no possible cellulitis. 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 Dorsi and plantar flexion is intact. There is no obvious cellulitis to the left lower leg. No streaks. Neurologically she is awake and alert. No focal motor deficits. Const Vital Signs: 03/22/22 00:10 03/22/22 01:43 Temperature 97.3 F L Temperature Source Temporal Pulse Rate 84 Respiratory Rate 18 Respiratory Effort Normal Non-Labored Blood Pressure 118/90 H Blood Pressure Mean 99 Pulse Ox 97 Oxygen Delivery Method Room Air Positive well nourished, well developed and obese; Negative for cachectic, contractures or unkempt General Appearance ED: well developed and NAD; Negative for unkempt, cachectic, contractures, cyanotic or diaphoretic Nutritional Appearance: obese; Negative for cachectic HEENT Reports moist mucous membranes; Denies dry mucous membranes Negative for trauma or tenderness Mouth ED: No dry mucous membranes Mouth: No dry mucous membranes Eyes PERRL and EOMs intact bilaterally General Eye ED: Negative for pale conjunctiva or scleral icterus Neck no lymphadenopathy, supple and no JVD General: Negative for tenderness Lymph Lymphatic: Negative for other Chest Wall inspection of chest normal and palpation of chest normal Resp normal respiratory effort and clear to auscultation bilaterally Effort and Inspection: Negative for retractions Auscultation: Negative for rales, rhonchi or wheezes Cardio regular rate, regular rhythm, S1 normal heart sound, S2 normal heart sound and no murmurs Palpation: Negative for palpable S3 Rate: Negative for bradycardia Rhythm: Negative for abnormal rhythm GI normal to inspection, nondistended, normoactive bowel sounds, non-tender, non- distended and no masses Inspection: Negative for abdominal distention Auscultation: normoactive bowel sounds Palpation: soft; Negative for tender or guarding Back/Spine no CVA tenderness General Back: Negative for CVA tenderness Cervical Spine: Negative for cervical spine tenderness Thoracic Spine / Upper Back: Negative for thoracic spinal tenderness Lumbar Spine / Lower Back: Negative for lumbar spinal tenderness Extremity Negative for normal to inspection Extremity Narrative: 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 Old ulceration bottom of her foot at the pad of the great toe and also the heel. General Extremety ED: Negative for edema, tenderness or other findings General Extremity: Negative for edema or other findings Neuro oriented x3 Sensorium / Orientation: alert; Negative for orientation impaired, lethargic or stuporous Psych mental status grossly normal Appearance: Negative for unkempt Attitude: No agitated Mood & Affect: Negative for depressed, anxious or tearful Skin no rashes or lesions noted and No no wounds Skin Narrative: 2 wounds left heel and left foot below the great toe on the pad. No pus. No cellulitis. Lesions: No lesion noted Rashes: No rashes noted Trauma: Negative for abrasion Wounds: wounds noted MDM MDM MDM Narrative Medical decision making narrative: 41-year-old diabetic with multiple complaints. Clinically benign exam. Screening labs being obtained. Treated with IV fluids and Zofran for nausea and vomiting. Repeat exam patient doing well at 3:10 AM. We discussed her test results. She is comfortable being discharged home. Initially was a started on Keflex there is an allergy to ceftriaxone when she does not believe she has and believes she has been on Keflex before. But she stated Bactrim has worked well for her in the past. She will be given a dose of Bactrim here and placed on it 1 pill twice a day for 10 days 20 no refill. Watch her blood sugars closely. Follow- up with her primary care physician. Fluids and rest. Return if worse. Lab Data Attestation: I reviewed the patient's lab results. Lab results narrative: CBC shows a white count of 14.1. H&H of 12 and 39. Platelets 406. Urine positive for nitrates 25-50 white cells 1+ bacteria. Blood sugars 125. She is diabetic. Urine culture be sent. Chemistry panel ordered. It coagulated. I do not think it will change her clinical course so it was canceled. Labs: Laboratory Results - last 24 hr 03/22/22 03/22/22 03/22/22 01:35 01:46 01:54 WBC 14.1 H RBC 4.53 Hgb 12.6 Hct 39.6 MCV 87.4 MCH 27.8 MCHC 31.8 L RDW Std Deviation 45.1 H RDW Coeff of Claude 14.0 Plt Count 406 MPV 10.6 Immature Gran % (Auto) 0.600 Neut % (Auto) 67.7 Lymph % (Auto) 22.3 [place] % (Auto) 7.9 Eos % (Auto) 0.9 Baso % (Auto) 0.6 Absolute Neuts (auto) 9.5 H Absolute Lymphs (auto) 3.14 Nucleated RBC % 0 Urine Color Yellow Urine Clarity Sl. Cloudy Urine pH 6.0 Ur Specific [place] 1.010 Urine Protein 30 H Urine Glucose (UA) Normal Urine Ketones 15 H Urine Occult Blood Negative Urine Nitrite Positive H Urine Bilirubin Negative Urine Urobilinogen Normal Ur Leukocyte Esterase 500 H Urine RBC 0 SEEN Urine WBC 25-50 SEEN Ur Squamous Epith Cells 0-5 SEEN Urine Bacteria 1+ Urine Mucus 0 SEEN POC Glucose 125 H Discharge Plan Triage Chief Complaint: General Illness ED Provider: Kevin Barcenas Dx/Rx/DC Orders Clinical Impression: Urinary tract infection, History of diabetes mellitus Instructions: ED Cystitis Female Adult Prescriptions: New sulfamethoxazole-trimethoprim [Bactrim DS] 800-160 mg tablet 1 tab PO BID 10 Days Qty: 20 0RF ondansetron 4 mg tablet,disintegrating 4 mg PO Q6H PRN (Reason: nausea and vomiting) Qty: 7 0RF No Action insulin aspart (niacinamide) 100 unit/mL (3 mL) insulin pen 0 - 100 ml subcut PRN PRN (Reason: Hyperglycemia) Label Comments: Inject 8-18 Units subcutaneously three times daily before meals. (Includes SS # 2 QAC -> Pt. aware of details.) MAX TDD = 55 UNITS / DAY. E1 Rx Instructions: 15 PLUS SLIDING SCALE. atorvastatin 80 mg tablet 80 mg PO DAILY Label Comments: Take 1 tablet by mouth once daily. (DME) pen needle, diabetic [BD Ultra-Fine Hope Pen Needle] 32 gauge x 5/32 needle See Rx Instructions .ROUTE .MEDSUPPLY Qty: 400 6RF Rx Instructions: 4x/day furosemide 20 MG tablet 20 mg PO 2200 Hold Instructions: Resume on 11/24/21. Rx Instructions: 20 mg in the evening furosemide 40 MG tablet 40 mg PO BREAKFAST Hold Instructions: Resume on 11/24/21. oxybutynin chloride 15 mg tablet extended release 24hr 15 mg PO DAILY acetaminophen 500 MG tablet 1,000 mg PO TID PRN PRN (Reason: Pain Or Fever) trazodone 100 mg tablet 100 mg PO QHS Label Comments: Take 1 tablet by mouth daily at bedtime. phenazopyridine [Pyridium] 200 MG tablet 200 mg PO BID PRN PRN (Reason: Pain) amoxicillin-pot clavulanate 875-125 mg tablet 1 tab PO BID Qty: 10 0RF doxycycline hyclate 100 mg capsule 100 mg PO BID Qty: 10 0RF sennosides-docusate sodium [Stool Softener-Stimulant Laxat] 8.6-50 mg Tablet 2 tab PO BID PRN (Reason: CONSTIPATION) Qty: 0 0RF glimepiride 2 mg tablet 2 mg PO BID Qty: 180 3RF Rx Instructions: Hold if glucose less than 130 mg/dl propranolol 10 MG tablet 5 mg PO BID Qty: 30 0RF Rx Instructions: Hold for heart less than 60 or systolic blood pressure less than 100 mmHg. lisinopril 5 mg tablet 2.5 mg PO DAILY Qty: 90 3RF Rx Instructions: Hold for SBP less than 130 mmHg insulin glargine [Lantus Solostar U-100 Insulin] 100 unit/mL (3 mL) insulin pen 25 unit SC QHS Qty: 15 0RF Rx Instructions: Hold if glucose less than 130 mg/dl mupirocin 2 % ointment 1 applic topical BID Qty: 22 2RF Rx Instructions: apply around suprapubic catheter for 10 days Primary Care Provider: Will Shukla Referrals: Will Shukla MD [Primary Care Provider] - 3-5 Days Activity Restrictions/Additional Instructions: You have a urinary tract infection. A urine culture was sent those results will be back in 24 to 48 hours. You will be started on antibiotic Bactrim 1 pill twice a day. 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 Zofran as needed for nausea. Plenty of fluids and rest. Follow-up with your primary care physician by the end of the week. Return if worse. Watch her blood sugars closely. Disposition Disposition: Home, Self Care
[2022-03-22] MEDS: 0.9% Normal Saline 1,000 ML 1000 ML IV (01:33)
[2022-03-22] MEDS: Ondansetron 4 MG/2 ML Vial IV (01:33)
[2022-03-22 01:50] LABS: Mucous, Urine 0 SEEN /hpf (<or=2+); Red Blood Cells-Urine 0 SEEN /hpf (0-5)
[2022-03-22 01:50] LABS: Absolute Lymphocyte Count 3.14 X10^3/uL (0.83-4.51); Absolute Neutrophil Count 9.5 X10^3/uL (2.0-7.7); Basophil# 0.09 X10^3/uL; Basophil% 0.6 % (0-1); Eosinophil# 0.12 X10^3/uL; Eosinophils% 0.9 % (0-5); Hematocrit 39.6 % (37-47); Hemoglobin 12.6 g/dL (12.0-15.0); Lymphocyte # 3.14 X10^3/ul (0.83-4.51); Lymphocyte % 22.3 % (19-41); Mean Corp Hgb Conc 31.8 g/dL (32-36); Mean Corpuscular Hgb 27.8 pg (27.0-32.0); Mean Corpuscular Volume 87.4 fL (81-99); Mean Platelet Vol. 10.6 fl (6.2-12.0); Monocyte# 1.11 X10^3/uL; Monocyte% 7.9 % (0-10); NRBC Flagged by Analyzer 0 % (0-5); Neutrophil # 9.52 X10^3/uL (2.7-7.7); Neutrophil % 67.7 % (47-70); Platelet Count 406 K/mm3 (150-450); RBC Distribution Width SD 45.1 fl (35.1-43.9); Red Blood Count 4.53 M/mm3 (4.2-5.4); White Blood Count 14.1 K/mm3 (4.4-11.0)
[2022-03-22 01:52] LABS: Color, Urine Yellow (Yellow); Glucose, Dipstick Normal (Normal); Ketone-Dipstick 15 mg/dl (Negative); Leukocyte Esterase-Dipstick 500 /ul (Negative); Nitrite-Dipstick Positive (Negative); Occult Blood-Urine Negative /ul (Negative); Protein-Dipstick 30 mg/dl (Negative); Urine Bilirubin Dipstick Negative (Negative); Urine Clarity Sl. Cloudy (Clear); Urine Urobilinogen Normal (Normal)
[2022-03-22] MEDS: HYDROcodone Bitartrate/Apap 5/325 Tablet PO (01:54)
[2022-03-22 02:11] LABS: Bacteria 1+ /hpf (None Seen); Squamous Epithelial Cells - UA 0-5 SEEN /hpf (5-10); White Blood Cells 25-50 SEEN /hpf (0-5)
[2022-03-22 02:16] LABS: Bedside Glucose 125 mg/dL (74-106)
[2022-03-22] MEDS: Smz/Tmp Ds Tablet 1 TABLET PO (03:27)
[2022-03-22 03:29] VITALS: BP 134/74; PULSE 78; RESP 17; O2SAT 98
== END 2022-03-22 03:38 | disposition home or self-care (01) ==
PROVIDERS: Emergency Provider Emergency Medicine; PCP Family Medicine; Visit Provider Emergency Medicine
DX: N39.0 Urinary tract infection, site not specified (principal); Q05.9 Spina bifida, unspecified; E11.9 Type 2 diabetes mellitus without complications; I10 Essential (primary) hypertension; E78.5 Hyperlipidemia, unspecified; F41.9 Anxiety disorder, unspecified; F32.A Depression, unspecified
CPT/HCPCS: 81001; 82962; 85025; 87077; 87086; 87088; 87186; 96361; 96374; 99284; J7030; A4216; J2405

== ENCOUNTER 2022-04-10 23:55 | Emergency (ER) | payer MEDICARE, MEDICAID, SELFPAY ==
[2022-04-10 23:56] VITALS: BP 133/82; PULSE 87; RESP 20; TEMP 36.8; O2SAT 98; BMI 38.7
[2022-04-11 00:43] LABS: Mucous, Urine 0 SEEN /hpf (<or=2+); Squamous Epithelial Cells - UA 0 SEEN /hpf (5-10)
--- NOTE | 2022-04-11 00:45 | EDS_ITS ---
HPI History of Present Illness Chief Complaint: Complaint Narrative Narrative: Patient is a 41-year-old female with past medical history of type 2 diabetes that is insulin-dependent as well as chronic kidney disease with suprapubic catheter and colostomy. She also has had osteomyelitis of the left foot before with amputation of her great toe secondary to this. Patient states she does have diabetic wounds to her left foot but they typically do not have any true pain or discharge. She states she has noticed pain in the left foot for the past 2 days as well as greenish discharge from her foot wounds. She states in the last 24 hours she has not had blotchy redness to the left lower leg which she states is consistent with her previous episodes of cellulitis. Patient reports she is concerned she is developing an infection based on the discharge from her foot and now the red discoloration of her leg and therefore comes in for evaluation, [facility] Medical History Anxiety and depression Arthritis Manley's palsy Cellulitis of left lower extremity Chronic back pain Chronic nausea Colostomy in place Constipation Delayed wound healing Diabetes mellitus, type II Diabetic foot infection Diabetic polyneuropathy Diabetic ulcer of left heel with fat layer exposed DJD (degenerative joint disease) of thoracic spine Dysthymic disorder Essential hypertension Hematochezia History of kidney stones History of migraine Hydronephrosis of right kidney Hyperglycemia Hyperlipidemia Infection of bladder catheter Insomnia Lipomeningocele Lower extremity edema Morbid obesity with BMI of 40.0-44.9, adult Neurogenic bladder Neurogenic bowel Non-compliance Non-smoker Normochromic normocytic anemia Open wound of left foot Panic attacks PSVT (paroxysmal supraventricular tachycardia) Sepsis Sepsis Spina bifida aperta of lumbar spine Thyroid cyst Type 2 diabetes mellitus with diabetic polyneuropathy Type 2 diabetes mellitus with foot ulcer Ulcer of left heel and midfoot with fat layer exposed Uninodular goiter Urinary tract infection Urinary tract infection UTI (urinary tract infection) UTI (urinary tract infection) Weakness Home Medications furosemide 20 mg tablet 20 mg PO 2200 fluid 08/28/18 [History Last Taken 01/18/22] furosemide 40 mg tablet 40 mg PO BREAKFAST fluid 04/05/19 [History Last Taken 01/19/22] oxybutynin chloride 15 mg tablet,extended release 24 hr 15 mg PO DAILY bladder 11/12/19 [History Last Taken 01/19/22] acetaminophen 500 mg tablet 1,000 mg PO TID PRN PRN Pain Or Fever 02/12/20 [History Last Taken 09/24/20 19:24] trazodone 100 mg tablet 100 mg PO QHS sleep 01/19/21 [History Last Taken Unknown] atorvastatin 80 mg tablet 80 mg PO DAILY cholesterol 01/29/21 [History Last Taken 01/19/22] insulin aspart (niacinamide)(U-100) 100 unit/mL(3 mL) subcutaneous pen 0 - 100 ml subcut PRN PRN Hyperglycemia 01/29/21 [History Last Taken Unknown] pen needle, diabetic 32 gauge x 5/32 (BD Ultra-Fine Hope Pen Needle) #400 ea 03/05/21 [Rx Last Taken Unknown] phenazopyridine 200 mg tablet (Pyridium) 200 mg PO BID PRN PRN Pain 11/20/21 [History Last Taken Unknown] glimepiride 2 mg tablet 2 mg PO BID #180 tabs 01/21/22 [Rx Last Taken 01/19/22] insulin glargine 100 unit/mL (3 mL) subcutaneous pen (Lantus Solostar U-100 Insulin) 25 unit (0.25 mL) subcut QHS dm #15 mL 01/21/22 [Rx Last Taken 01/18/22] lisinopril 5 mg tablet 2.5 mg PO DAILY #90 tabs 01/21/22 [Rx Last Taken 01/19/22] propranolol 10 mg tablet 5 mg PO BID heart #30 tabs 01/21/22 [Rx Last Taken 01/19/22] sennosides 8.6 mg-docusate sodium 50 mg tablet (Stool Softener-Stimulant Laxative) 2 tab PO BID PRN CONSTIPATION #0 tabs 01/21/22 [Rx Last Taken Unknown] ondansetron 4 mg disintegrating tablet 4 mg PO Q6H PRN nausea and vomiting #7 tabs 03/22/22 [Rx Last Taken Unknown] ciprofloxacin HCl 750 mg tablet 750 mg PO BID 10 days #20 tabs 04/11/22 [Rx Last Taken Unknown] clindamycin HCl 300 mg capsule 300 mg PO 4X/DAY 10 days #40 caps 04/11/22 [Rx Last Taken Unknown] Allergy/AdvReac Type Severity Reaction Status Date / Time ceftriaxone [From Rocephin] Allergy Hives Verified 03/22/22 00:10 mushroom Allergy Anaphylaxis Verified 03/22/22 00:10 peanut Allergy Anaphylaxis Verified 03/22/22 00:10 fentanyl AdvReac Low blood Verified 03/22/22 00:10 pressure gabapentin AdvReac Other Verified 04/11/22 00:00 Gadolinium-MRI Contrast AdvReac Vomiting Verified 03/22/22 00:10 Medium Latex, Natural Rubber AdvReac Rash Verified 03/22/22 00:10 vancomycin AdvReac Rash Verified 03/22/22 00:10 Family History Mother CVA (cerebral vascular accident) Thyroid disorder Diabetes Hypertension Heart disease Hyperlipidemia Myocardial infarction, Onset Age: 54 mother had diabetes Father Cancer skin Grandmother Cancer liver Other Arthritis Skin cancer Surgical History history insertion suprapubic catheter History of cholecystectomy History of dilation and curettage History of spinal surgery Hx of foot surgery Hx of ventral hernia repair S/P colostomy S/P thyroid biopsy (~11/06/19) Status post gastric surgery Social History household members: significant other Smoking Status: Never smoker alcohol intake: current substance use type: does not use ROS ROS ED Constitutional Constitutional ED: Denies chills or fever(s) ENT ENT ED: Denies sore throat Cardiovascular Cardiovascular: Denies chest pain Respiratory/Chest Respiratory/Chest: Denies cough or dyspnea Gastrointestinal Gastrointestinal: Reports abdominal pain; Denies diarrhea, nausea or vomiting Genitourinary Genitourinary ED: Denies dysuria Musculoskeletal Musculoskeletal: Reports myalgias and other Details: Positive left foot/leg pain Integumentary Reports rash and other Details: Positive left foot wound/ulcer Neurologic Neurologic: Denies headache(s) Hematologic/Lymphatic Hematologic/Lymphatic: Denies easy bleeding or easy bruising EXAM Physical Exam Const Vital Signs: 04/10/22 23:56 04/11/22 02:05 Temperature 98.3 F Temperature Source Oral Pulse Rate 87 78 Respiratory Rate 20 H 16 Blood Pressure 133/82 H 147/74 H Blood Pressure Mean 99 98 Pulse Ox 98 98 Oxygen Delivery Method Room Air Room Air Positive well nourished, well developed and obese General Appearance ED: well developed Nutritional Appearance: obese Eyes PERRL and EOMs intact bilaterally Neck supple Resp normal respiratory effort and clear to auscultation bilaterally Cardio regular rate and regular rhythm Rate: other Other Details: Radial pulses are +2-4 bilaterally are equal and symmetric GI non-tender and non-distended GI Narrative: Abdomen is soft and nondistended with normoactive bowel sounds. Patient has a colostomy in place in the left mid to lower region of the abdomen that is draining normally. No surrounding skin changes to suggest infection. Suprapubic catheter is also in place without secondary changes at its insertion point to suggest infection either. Auscultation: normoactive bowel sounds Palpation: soft Extremity Extremity Narrative: Patient has diabetic ulcers to the plantar aspect of the forefoot and heel. There is mild surrounding soft tissue swelling and faint erythema. There is no active discharge present from the wounds but on the gauze dressing there is purulent discharge noted. Along the anterior aspect of the left leg there is blotchy areas of erythema and warmth that are tender to touch concerning for developing cellulitis. No lymphangitic streaking or abscess formation noted. The 2 foot wounds were probed and there is no tracking down to bone Neuro oriented x3 and CN's II-XII intact bilaterally Sensorium / Orientation: alert Psych mental status grossly normal Skin Skin Narrative: Soft tissue changes to the left foot and leg as documented above MDM MDM MDM Narrative Medical decision making narrative: Patient presented to the ER afebrile with stable vitals. She does have diabetes as well as diabetic foot ulcers and blotches of redness across her leg concerning for cellulitis. However there is also concern for osteomyelitis based on her presentation and secondary to this a work-up was obtained. Patient's white count is slightly elevated at 12.5 and her CRP is also slightly elevated at 22. Her lactic acid however is normal. Foot x-ray also revealed no acute signs of osteomyelitis. Because of her diabetic status and immunosuppression blood cultures were obtained as well as a wound culture from the heel of the left foot. Patient was given IV Cipro and clindamycin as she has a vancomycin allergy. The case was discussed with Dr. Guo/podiatry. At this time he feels as the patient's vitals are stable and she does not have criteria needing sepsis and the x-ray does not show obvious osteomyelitis changes that it is more appropriate to place her on oral antibiotics and discharge her home with outpatient follow-up. Patient was informed of this plan of care is agreeable to it and states she does have the ability for close follow-up with her revolving inventory clerk. The patient also voiced concerns about urinary tract infection which seems recurrent in nature based on her chart review. Her urine does show +2 bacteria with white blood cells and no contamination but this is obtained from a suprapubic catheter which is colonized. Therefore the urine will be sent for culture but as she has been placed on antibiotics for cellulitis this should cover that as well. Lab Data Attestation: I reviewed the patient's lab results. Labs: Laboratory Results - last 24 hr 04/11/22 04/11/22 04/11/22 00:30 00:35 00:35 WBC 12.5 H RBC 4.48 Hgb 12.4 Hct 38.6 MCV 86.2 MCH 27.7 MCHC 32.1 RDW Std Deviation 44.8 H RDW Coeff of Claude 14.3 Plt Count 328 MPV 10.9 Immature Gran % (Auto) 0.700 Neut % (Auto) 64.3 Lymph % (Auto) 23.5 [place] % (Auto) 9.4 Eos % (Auto) 1.5 Baso % (Auto) 0.6 Absolute Neuts (auto) 8.0 H Absolute Lymphs (auto) 2.94 Nucleated RBC % 0 ESR 122 H Sodium 135 L Potassium 3.9 Chloride 101 Carbon Dioxide 26.0 Anion Gap 8 BUN 12 Creatinine 0.90 Estim Creat Clear Calc 62.70 Est GFR (MDRD) Af Amer 89 Est GFR (MDRD) Non-Af 74 BUN/Creatinine Ratio 13.4 Glucose 190 H Lactic Acid Calcium 9.9 C-React Prot Ext Range 22.40 H Urine Color Yellow Urine Clarity Cloudy Urine pH 6.0 Ur Specific [place] 1.020 Urine Protein 100 H Urine Glucose (UA) Normal Urine Ketones 5 H Urine Occult Blood 50 H Urine Nitrite Positive H Urine Bilirubin Negative Urine Urobilinogen Normal Ur Leukocyte Esterase 500 H Urine RBC 0-5 SEEN Urine WBC 50-100 SEEN Ur Squamous Epith Cells 0 SEEN Urine Bacteria 2+ Urine Mucus 0 SEEN Urine Test Negative 04/11/22 00:35 WBC RBC Hgb Hct MCV MCH MCHC RDW Std Deviation RDW Coeff of Claude Plt Count MPV Immature Gran % (Auto) Neut % (Auto) Lymph % (Auto) [place] % (Auto) Eos % (Auto) Baso % (Auto) Absolute Neuts (auto) Absolute Lymphs (auto) Nucleated RBC % ESR Sodium Potassium Chloride Carbon Dioxide Anion Gap BUN Creatinine Estim Creat Clear Calc Est GFR (MDRD) Af Amer Est GFR (MDRD) Non-Af BUN/Creatinine Ratio Glucose Lactic Acid 1.4 Calcium C-React Prot Ext Range Urine Color Urine Clarity Urine pH Ur Specific [place] Urine Protein Urine Glucose (UA) Urine Ketones Urine Occult Blood Urine Nitrite Urine Bilirubin Urine Urobilinogen Ur Leukocyte Esterase Urine RBC Urine WBC Ur Squamous Epith Cells Urine Bacteria Urine Mucus Urine Test Radiography Diagnostic Testing: Clinical Impression(s) from Imaging Studies Foot X-Ray 04/11/22 01:20 IMPRESSION: 1. Stable exam. 2. Deformity of the fifth metatarsal with resorption of the head and distal diaphysis. Pattern is stable. 3. Soft tissue defect along the plantar surface of the calcaneus/heel consistent with ulceration 4. No acute fractures or acute destructive bony process. 5. No radiographic evidence of osteomyelitis. Electronically Signed: Severino Hendrickson MD at 1:39 EST Reading Location ID and State: [facility] / [place] Tel , Service support , X-ray of the left foot as interpreted by the emergency medicine physician reveals a chronic deformity of the fifth metatarsal without new/acute fracture or destructive process. No signs of osteomyelitis Discharge Plan Triage Chief Complaint: Complaint Other Complaint: Cellulitis ED Provider: Alexander Hooks Dx/Rx/DC Orders Clinical Impression: Cellulitis of left lower extremity, Type 2 diabetes mellitus, Diabetic ulcer of left foot Instructions: Diabetes Foot Infections Tx, Cellulitis Dc Prescriptions: New ciprofloxacin HCl 750 mg tablet 750 mg PO BID 10 Days Qty: 20 0RF clindamycin HCl 300 mg capsule 300 mg PO 4X/DAY 10 Days Qty: 40 0RF No Action insulin aspart (niacinamide) 100 unit/mL (3 mL) insulin pen 0 - 100 ml subcut PRN PRN (Reason: Hyperglycemia) Label Comments: Inject 8-18 Units subcutaneously three times daily before meals. (Includes SS # 2 QAC -> Pt. aware of details.) MAX TDD = 55 UNITS / DAY. E1 Rx Instructions: 15 PLUS SLIDING SCALE. atorvastatin 80 mg tablet 80 mg PO DAILY Label Comments: Take 1 tablet by mouth once daily. (DME) pen needle, diabetic [BD Ultra-Fine Hope Pen Needle] 32 gauge x 5/32 needle See Rx Instructions .ROUTE .MEDSUPPLY Qty: 400 6RF Rx Instructions: 4x/day furosemide 20 MG tablet 20 mg PO 2200 Hold Instructions: Resume on 11/24/21. Rx Instructions: 20 mg in the evening furosemide 40 MG tablet 40 mg PO BREAKFAST Hold Instructions: Resume on 11/24/21. oxybutynin chloride 15 mg tablet extended release 24hr 15 mg PO DAILY acetaminophen 500 MG tablet 1,000 mg PO TID PRN PRN (Reason: Pain Or Fever) trazodone 100 mg tablet 100 mg PO QHS Label Comments: Take 1 tablet by mouth daily at bedtime. phenazopyridine [Pyridium] 200 MG tablet 200 mg PO BID PRN PRN (Reason: Pain) sennosides-docusate sodium [Stool Softener-Stimulant Laxat] 8.6-50 mg Tablet 2 tab PO BID PRN (Reason: CONSTIPATION) Qty: 0 0RF glimepiride 2 mg tablet 2 mg PO BID Qty: 180 3RF Rx Instructions: Hold if glucose less than 130 mg/dl propranolol 10 MG tablet 5 mg PO BID Qty: 30 0RF Rx Instructions: Hold for heart less than 60 or systolic blood pressure less than 100 mmHg. lisinopril 5 mg tablet 2.5 mg PO DAILY Qty: 90 3RF Rx Instructions: Hold for SBP less than 130 mmHg insulin glargine [Lantus Solostar U-100 Insulin] 100 unit/mL (3 mL) insulin pen 25 unit SC QHS Qty: 15 0RF Rx Instructions: Hold if glucose less than 130 mg/dl ondansetron 4 mg tablet,disintegrating 4 mg PO Q6H PRN (Reason: nausea and vomiting) Qty: 7 0RF Primary Care Provider: Will Shukla Referrals: Will Shukla MD [Primary Care Provider] - Gaurav Gomez DPM [Med Staff - Active Staff] - Activity Restrictions/Additional Instructions: Please take your antibiotics as directed to help control your infection. Follow-up with your revolving inventory clerk in the next 1 to 2 days for close outpatient evaluation. If you develop a fever over 100.4 or are having no improvement despite taking your antibiotics please return to the ER for repeat evaluation. Disposition Disposition: Home, Self Care
[2022-04-11 00:47] LABS: Erythrocyte Sedimentation Rate 122 mm/hr (0-30)
[2022-04-11 00:47] LABS: Color, Urine Yellow (Yellow); Glucose, Dipstick Normal (Normal); Ketone-Dipstick 5 mg/dl (Negative); Leukocyte Esterase-Dipstick 500 /ul (Negative); Nitrite-Dipstick Positive (Negative); Occult Blood-Urine 50 /ul (Negative); Protein-Dipstick 100 mg/dl (Negative); Urine Bilirubin Dipstick Negative (Negative); Urine Clarity Cloudy (Clear); Urine Urobilinogen Normal (Normal)
[2022-04-11] MEDS: Clindamycin 600 MG/50 ML BAG 100 MG IV (00:47)
[2022-04-11 00:48] LABS: Absolute Lymphocyte Count 2.94 X10^3/uL (0.83-4.51); Basophil# 0.08 X10^3/uL; Basophil% 0.6 % (0-1); Eosinophil# 0.19 X10^3/uL; Eosinophils% 1.5 % (0-5); Hematocrit 38.6 % (37-47); Hemoglobin 12.4 g/dL (12.0-15.0); Lymphocyte # 2.94 X10^3/ul (0.83-4.51); Lymphocyte % 23.5 % (19-41); Mean Corp Hgb Conc 32.1 g/dL (32-36); Mean Corpuscular Hgb 27.7 pg (27.0-32.0); Mean Corpuscular Volume 86.2 fL (81-99); Mean Platelet Vol. 10.9 fl (6.2-12.0); Monocyte# 1.17 X10^3/uL; Monocyte% 9.4 % (0-10); NRBC Flagged by Analyzer 0 % (0-5); Neutrophil # 8.02 X10^3/uL (2.7-7.7); Neutrophil % 64.3 % (47-70); Platelet Count 328 K/mm3 (150-450); RBC Distribution Width CV 14.3 % (11.6-14.6); RBC Distribution Width SD 44.8 fl (35.1-43.9); Red Blood Count 4.48 M/mm3 (4.2-5.4); White Blood Count 12.5 K/mm3 (4.4-11.0)
[2022-04-11 00:50] LABS: Bacteria 2+ /hpf (None Seen); Red Blood Cells-Urine 0-5 SEEN /hpf (0-5); White Blood Cells 50-100 SEEN /hpf (0-5)
[2022-04-11 00:51] LABS: Internal QC Validated? YES +Cl - CLEAR BKGD; Pregnancy, Urine Negative Negative
[2022-04-11 01:04] LABS: Anion Gap 8 (5-15); BUN 12 mg/dL (7-18); BUN/Creat Ratio 13.4 RATIO (10-20); Calcium,Total 9.9 mg/dL (8.5-10.1); Chloride 101 mmol/L (98-107); EST Glomerular Filtration Rate 74 mL/min (>60); Est Glom Filt Rate - Afr Amer 89 mL/min (>60); Glucose 190 mg/dL (74-106); Potassium 3.9 mmol/L (3.5-5.1); Sodium Level 135 mmol/L (136-145)
[2022-04-11 01:12] LABS: Lactic Acid 1.4 mmol/L (0.4-1.9)
--- NOTE | 2022-04-11 01:20 | RAD_ITS ---
INDICATION: pain / ? Osteomyelitis EXAMINATION/TECHNIQUE: X-RAY - LEFT XR Foot Min 3 Views 3 VIEWS COMPARISON: 01/20/2022 FINDINGS: SOFT TISSUES: There is soft tissue defect/ulceration along the plantar surface of calcaneus. No radiopaque foreign bodies or reactive bony changes. No radiopaque foreign body. BONES/JOINTS: Bony elements are unchanged appearance. There is deformity of the fifth metatarsal with chronic resorption of the head and distal aspect of the fifth metatarsal. No fracture or focal destructive bony process noted. Visualized joint spaces are maintained. RAD/Foot min 3 Views IMPRESSION: 1. Stable exam. 2. Deformity of the fifth metatarsal with resorption of the head and distal diaphysis. Pattern is stable. 3. Soft tissue defect along the plantar surface of the calcaneus/heel consistent with ulceration 4. No acute fractures or acute destructive bony process. 5. No radiographic evidence of osteomyelitis. Electronically Signed: Severino Hendrickson MD at 1:39 EST ,
[2022-04-11] MEDS: Ciprofloxacin 400 MG/200 ML BAG 200 MG IV (01:30)
[2022-04-11] MEDS: Ketorolac 30 MG/ML Syringe IV (02:02)
[2022-04-11 02:05] VITALS: BP 147/74; PULSE 78; RESP 16; O2SAT 98
[2022-04-11 02:44] VITALS: BP 102/67; PULSE 74; RESP 16; O2SAT 98
== END 2022-04-11 02:54 | disposition home or self-care (01) ==
PROVIDERS: Emergency Provider Emergency Medicine; PCP Family Medicine; Visit Provider Emergency Medicine
DX: L03.116 Cellulitis of left lower limb (principal); E11.621 Type 2 diabetes mellitus with foot ulcer; Z89.419 Acquired absence of unspecified great toe; L97.529 Non-pressure chronic ulcer of other part of left foot with unspecified severity; M86.9 Osteomyelitis, unspecified; E11.22 Type 2 diabetes mellitus with diabetic chronic kidney disease; E11.42 Type 2 diabetes mellitus with diabetic polyneuropathy; Z79.4 Long term (current) use of insulin; M54.9 Dorsalgia, unspecified; I12.9 Hypertensive chronic kidney disease with stage 1 through stage 4 chronic kidney disease, or unspecified chronic kidney disease; B96.89 Other specified bacterial agents as the cause of diseases classified elsewhere; E78.5 Hyperlipidemia, unspecified
CPT/HCPCS: 73630; 80048; 81001; 81025; 83605; 85025; 85652; 86140; 87040; 87070; 87077; 87086; 87186; 87205; 96365; 96375; 99284; J7050; A4216; J0744

== ENCOUNTER 2022-05-15 20:52 | Emergency (ER) | payer MEDICARE, MEDICAID, SELFPAY ==
[2022-05-15 20:53] VITALS: BP 133/99; PULSE 106; RESP 18; TEMP 35.6; O2SAT 98; BMI 38.5
[2022-05-15 20:56] VITALS: BP 133/99; PULSE 106; RESP 18; TEMP 35.6; O2SAT 98
[2022-05-15] MEDS: 0.9% Normal Saline 1,000 ML 1000 ML IV ×2 (21:30→23:57)
[2022-05-15 21:52] LABS: Absolute Lymphocyte Count 1.41 X10^3/uL (0.83-4.51); Absolute Neutrophil Count 7.3 X10^3/uL (2.0-7.7); Basophil# 0.05 X10^3/uL; Basophil% 0.5 % (0-1); Hematocrit 38.1 % (37-47); Hemoglobin 12.7 g/dL (12.0-15.0); Lymphocyte # 1.41 X10^3/ul (0.83-4.51); Lymphocyte % 14.4 % (19-41); Mean Corp Hgb Conc 33.3 g/dL (32-36); Mean Corpuscular Hgb 29.1 pg (27.0-32.0); Mean Corpuscular Volume 87.4 fL (81-99); Mean Platelet Vol. 10.3 fl (6.2-12.0); Monocyte# 0.72 X10^3/uL; Monocyte% 7.3 % (0-10); NRBC Flagged by Analyzer 0 % (0-5); Neutrophil # 7.33 X10^3/uL (2.7-7.7); Neutrophil % 74.8 % (47-70); Platelet Count 261 K/mm3 (150-450); RBC Distribution Width CV 14.2 % (11.6-14.6); RBC Distribution Width SD 45.1 fl (35.1-43.9); Red Blood Count 4.36 M/mm3 (4.2-5.4); White Blood Count 9.8 K/mm3 (4.4-11.0)
[2022-05-15 21:57] VITALS: BP 129/99; PULSE 85; RESP 17; TEMP 36.1
[2022-05-15 21:58] LABS: Bacteria 0 SEEN /hpf (None Seen); Mucous, Urine 0 SEEN /hpf (<or=2+); Red Blood Cells-Urine 0 SEEN /hpf (0-5); Squamous Epithelial Cells - UA 0 SEEN /hpf (5-10)
[2022-05-15 22:10] LABS: Color, Urine Yellow (Yellow); Glucose, Dipstick 1000 mg/dl (Normal); Ketone-Dipstick Negative (Negative); Leukocyte Esterase-Dipstick 500 /ul (Negative); Nitrite-Dipstick Positive (Negative); Occult Blood-Urine 10 /ul (Negative); Protein-Dipstick 30 mg/dl (Negative); Urine Bilirubin Dipstick Negative (Negative); Urine Clarity Sl. Cloudy (Clear); Urine Urobilinogen Normal (Normal)
[2022-05-15 22:16] LABS: Internal QC Validated? YES +Cl - CLEAR BKGD; Pregnancy, Serum, hCG Quali. NEGATIVE Negative
[2022-05-15 22:19] LABS: Amorphous Sediment 3+; White Blood Cells 5-10 SEEN /hpf (0-5)
--- NOTE | 2022-05-15 22:19 | EX.ED.DYSGE1 ---
HPI History of Present Illness Chief Complaint: Complaint Informant: patient Narrative Narrative: 41-year-old female presenting with fever, chills. She had her suprapubic catheter replaced on Monday. She was concerned about the technique with suprapubic catheter placement. She states since then she has had foul-smelling urine. She complains of fever, chills, body aches. Denies vomiting. Prior similar symptoms: Yes Recent Illness/Hospitalization: No PFSH PFSH Medical History Anxiety and depression Arthritis Manley's palsy Cellulitis of left lower extremity Chronic back pain Chronic nausea Colostomy in place Constipation Delayed wound healing Diabetes mellitus, type II Diabetic foot infection Diabetic polyneuropathy Diabetic ulcer of left heel with fat layer exposed DJD (degenerative joint disease) of thoracic spine Dysthymic disorder Essential hypertension Hematochezia History of kidney stones History of migraine Hydronephrosis of right kidney Hyperglycemia Hyperlipidemia Infection of bladder catheter Insomnia Lipomeningocele Lower extremity edema Morbid obesity with BMI of 40.0-44.9, adult Neurogenic bladder Neurogenic bowel Non-compliance Non-smoker Normochromic normocytic anemia Open wound of left foot Panic attacks PSVT (paroxysmal supraventricular tachycardia) Sepsis Sepsis Spina bifida aperta of lumbar spine Thyroid cyst Type 2 diabetes mellitus with diabetic polyneuropathy Type 2 diabetes mellitus with foot ulcer Ulcer of left heel and midfoot with fat layer exposed Uninodular goiter Urinary tract infection Urinary tract infection UTI (urinary tract infection) UTI (urinary tract infection) Weakness Home Medications furosemide 20 mg tablet 20 mg PO 2200 fluid 08/28/18 [History Last Taken 01/18/22] furosemide 40 mg tablet 40 mg PO BREAKFAST fluid 04/05/19 [History Last Taken 01/19/22] oxybutynin chloride 15 mg tablet,extended release 24 hr 15 mg PO DAILY bladder 11/12/19 [History Last Taken 01/19/22] acetaminophen 500 mg tablet 1,000 mg PO TID PRN PRN Pain Or Fever 02/12/20 [History Last Taken 09/24/20 19:24] trazodone 100 mg tablet 100 mg PO QHS sleep 01/19/21 [History Last Taken Unknown] atorvastatin 80 mg tablet 80 mg PO DAILY cholesterol 01/29/21 [History Last Taken 01/19/22] insulin aspart (niacinamide)(U-100) 100 unit/mL(3 mL) subcutaneous pen 0 - 100 ml subcut PRN PRN Hyperglycemia 01/29/21 [History Last Taken Unknown] pen needle, diabetic 32 gauge x 5/32 (BD Ultra-Fine Hope Pen Needle) #400 ea 03/05/21 [Rx Last Taken Unknown] phenazopyridine 200 mg tablet (Pyridium) 200 mg PO BID PRN PRN Pain 11/20/21 [History Last Taken Unknown] glimepiride 2 mg tablet 2 mg PO BID #180 tabs 01/21/22 [Rx Last Taken 01/19/22] insulin glargine 100 unit/mL (3 mL) subcutaneous pen (Lantus Solostar U-100 Insulin) 25 unit (0.25 mL) subcut QHS dm #15 mL 01/21/22 [Rx Last Taken 01/18/22] lisinopril 5 mg tablet 2.5 mg PO DAILY #90 tabs 01/21/22 [Rx Last Taken 01/19/22] propranolol 10 mg tablet 5 mg PO BID heart #30 tabs 01/21/22 [Rx Last Taken 01/19/22] sennosides 8.6 mg-docusate sodium 50 mg tablet (Stool Softener-Stimulant Laxative) 2 tab PO BID PRN CONSTIPATION #0 tabs 01/21/22 [Rx Last Taken Unknown] ondansetron 4 mg disintegrating tablet 4 mg PO Q6H PRN nausea and vomiting #7 tabs 03/22/22 [Rx Last Taken Unknown] ciprofloxacin HCl 750 mg tablet 750 mg PO BID 10 days #20 tabs 04/11/22 [Rx Last Taken Unknown] clindamycin HCl 300 mg capsule 300 mg PO 4X/DAY 10 days #40 caps 04/11/22 [Rx Last Taken Unknown] sulfamethoxazole 800 mg-trimethoprim 160 mg tablet (Bactrim DS) 1 tab PO BID 7 days #14 tabs 05/15/22 [Rx Last Taken Unknown] Allergy/AdvReac Type Severity Reaction Status Date / Time ceftriaxone [From Rocephin] Allergy Hives Verified 03/22/22 00:10 mushroom Allergy Anaphylaxis Verified 03/22/22 00:10 peanut Allergy Anaphylaxis Verified 03/22/22 00:10 fentanyl AdvReac Low blood Verified 03/22/22 00:10 pressure gabapentin AdvReac Other Verified 04/11/22 00:00 Gadolinium-MRI Contrast AdvReac Vomiting Verified 03/22/22 00:10 Medium Latex, Natural Rubber AdvReac Rash Verified 03/22/22 00:10 vancomycin AdvReac Rash Verified 03/22/22 00:10 Family History Mother CVA (cerebral vascular accident) Thyroid disorder Diabetes Hypertension Heart disease Hyperlipidemia Myocardial infarction, Onset Age: 54 mother had diabetes Father Cancer skin Grandmother Cancer liver Other Arthritis Skin cancer Surgical History history insertion suprapubic catheter History of cholecystectomy History of dilation and curettage History of spinal surgery Hx of foot surgery Hx of ventral hernia repair S/P colostomy S/P thyroid biopsy (~11/06/19) Status post gastric surgery Social History household members: significant other Smoking Status: Never smoker alcohol intake: current substance use type: does not use ROS ROS ED Constitutional Constitutional ED: Reports chills, fever(s) and subjective Eyes Eyes: Denies change in vision ENT ENT ED: Denies rhinorrhea or sore throat Cardiovascular Cardiovascular: Denies chest pain or palpitations Respiratory/Chest Respiratory/Chest: Denies cough or dyspnea Gastrointestinal Gastrointestinal: Reports nausea; Denies abdominal pain, diarrhea or vomiting Genitourinary Genitourinary ED: Denies dysuria Musculoskeletal Musculoskeletal: Reports myalgias Integumentary Denies rash Neurologic Neurologic: Denies headache(s) Psychiatric Psychiatric: Denies suicidal thoughts EXAM Physical Exam Const Vital Signs: 05/15/22 20:53 05/15/22 20:56 05/15/22 21:57 Temperature 96.1 F L 96.1 F L 97.0 F L Temperature Source Temporal Temporal Temporal Pulse Rate 106 H 106 H 85 Respiratory Rate 18 18 17 Blood Pressure 133/99 H 133/99 H 129/99 H Blood Pressure Mean 110 110 109 Pulse Ox 98 98 Oxygen Delivery Method Room Air Room Air Positive well nourished and well developed General Appearance ED: well developed HEENT Reports normocephalic and head/scalp atraumatic Eyes PERRL and EOMs intact bilaterally Neck supple General: Negative for tenderness Chest Wall inspection of chest normal Resp normal respiratory effort and clear to auscultation bilaterally Cardio regular rate and regular rhythm GI non-tender and non-distended GI Narrative: Ostomy, suprapubic catheter in place. Palpation: soft; Negative for guarding or rebound tenderness present Back/Spine no CVA tenderness Extremity normal to inspection Neuro oriented x3 Sensorium / Orientation: alert Psych mental status grossly normal Skin no rashes or lesions noted MDM MDM MDM Narrative Medical decision making narrative: Patient was given IV fluids. Suprapubic catheter was flushed without difficulty. Clear yellow urine return. CBC is unremarkable. negative. Chemistries unremarkable. Glucose 315. Urinalysis 5-10 white blood cells, positive nitrite. Urine culture was sent. COVID, influenza negative. Lactic acid 1.4. Chest x-ray read by myself and radiology shows no acute process. Patient is resting comfortably on reevaluation. She has indwelling suprapubic catheter, difficult to determine if urine is acutely infected. She is given prescription for Bactrim. She will follow-up with urology. Advised return to ED for worsening complaints. Lab Data Attestation: I reviewed the patient's lab results. Labs: Laboratory Results - last 24 hr 05/15/22 05/15/22 05/15/22 21:30 21:30 21:30 WBC 9.8 RBC 4.36 Hgb 12.7 Hct 38.1 MCV 87.4 MCH 29.1 MCHC 33.3 RDW Std Deviation 45.1 H RDW Coeff of Claude 14.2 Plt Count 261 MPV 10.3 Immature Gran % (Auto) 1.000 H Neut % (Auto) 74.8 H Lymph % (Auto) 14.4 L [place] % (Auto) 7.3 Eos % (Auto) 2.0 Baso % (Auto) 0.5 Absolute Neuts (auto) 7.3 Absolute Lymphs (auto) 1.41 Nucleated RBC % 0 Sodium 136 Potassium 3.9 Chloride 102 Carbon Dioxide 28.0 Anion Gap 6 BUN 14 Creatinine 1.03 H Estim Creat Clear Calc 54.79 Est GFR (MDRD) Af Amer 76 Est GFR (MDRD) Non-Af 63 BUN/Creatinine Ratio 13.6 Glucose 315 H Lactic Acid 1.4 Calcium 9.6 Serum , Qual Urine Color Urine Clarity Urine pH Ur Specific [place] Urine Protein Urine Glucose (UA) Urine Ketones Urine Occult Blood Urine Nitrite Urine Bilirubin Urine Urobilinogen Ur Leukocyte Esterase Urine RBC Urine WBC Ur Squamous Epith Cells Amorphous Sediment Urine Bacteria Urine Mucus 05/15/22 05/15/22 21:30 21:40 WBC RBC Hgb Hct MCV MCH MCHC RDW Std Deviation RDW Coeff of Claude Plt Count MPV Immature Gran % (Auto) Neut % (Auto) Lymph % (Auto) [place] % (Auto) Eos % (Auto) Baso % (Auto) Absolute Neuts (auto) Absolute Lymphs (auto) Nucleated RBC % Sodium Potassium Chloride Carbon Dioxide Anion Gap BUN Creatinine Estim Creat Clear Calc Est GFR (MDRD) Af Amer Est GFR (MDRD) Non-Af BUN/Creatinine Ratio Glucose Lactic Acid Calcium Serum , Qual NEGATIVE Urine Color Yellow Urine Clarity Sl. Cloudy Urine pH 7.0 Ur Specific [place] 1.010 Urine Protein 30 H Urine Glucose (UA) 1000 H Urine Ketones Negative Urine Occult Blood 10 H Urine Nitrite Positive H Urine Bilirubin Negative Urine Urobilinogen Normal Ur Leukocyte Esterase 500 H Urine RBC 0 SEEN Urine WBC 5-10 SEEN Ur Squamous Epith Cells 0 SEEN Amorphous Sediment 3+ Urine Bacteria 0 SEEN Urine Mucus 0 SEEN Radiography Chest X-Ray - ED: 1 View, Read by ED Physician and Read by Radiologist Diagnostic Testing: Clinical Impression(s) from Imaging Studies Chest X-Ray 05/15/22 22:22 IMPRESSION: No significant interval change or acute process. Electronically Signed: Kulwinder Boucher MD at 22:56 EST , Discharge Plan Triage Chief Complaint: Complaint ED Provider: Kristen Ohara Dx/Rx/DC Orders Clinical Impression: Encounter for suprapubic catheter care Instructions: Suprapubic Catheter Dc Prescriptions: New sulfamethoxazole-trimethoprim [Bactrim DS] 800-160 mg tablet 1 tab PO BID 7 Days Qty: 14 0RF No Action insulin aspart (niacinamide) 100 unit/mL (3 mL) insulin pen 0 - 100 ml subcut PRN PRN (Reason: Hyperglycemia) Label Comments: Inject 8-18 Units subcutaneously three times daily before meals. (Includes SS # 2 QAC -> Pt. aware of details.) MAX TDD = 55 UNITS / DAY. E1 Rx Instructions: 15 PLUS SLIDING SCALE. atorvastatin 80 mg tablet 80 mg PO DAILY Label Comments: Take 1 tablet by mouth once daily. (DME) pen needle, diabetic [BD Ultra-Fine Hope Pen Needle] 32 gauge x 5/32 needle See Rx Instructions .ROUTE .MEDSUPPLY Qty: 400 6RF Rx Instructions: 4x/day furosemide 20 MG tablet 20 mg PO 2200 Hold Instructions: Resume on 11/24/21. Rx Instructions: 20 mg in the evening furosemide 40 MG tablet 40 mg PO BREAKFAST Hold Instructions: Resume on 11/24/21. oxybutynin chloride 15 mg tablet extended release 24hr 15 mg PO DAILY acetaminophen 500 MG tablet 1,000 mg PO TID PRN PRN (Reason: Pain Or Fever) trazodone 100 mg tablet 100 mg PO QHS Label Comments: Take 1 tablet by mouth daily at bedtime. phenazopyridine [Pyridium] 200 MG tablet 200 mg PO BID PRN PRN (Reason: Pain) sennosides-docusate sodium [Stool Softener-Stimulant Laxat] 8.6-50 mg Tablet 2 tab PO BID PRN (Reason: CONSTIPATION) Qty: 0 0RF glimepiride 2 mg tablet 2 mg PO BID Qty: 180 3RF Rx Instructions: Hold if glucose less than 130 mg/dl propranolol 10 MG tablet 5 mg PO BID Qty: 30 0RF Rx Instructions: Hold for heart less than 60 or systolic blood pressure less than 100 mmHg. lisinopril 5 mg tablet 2.5 mg PO DAILY Qty: 90 3RF Rx Instructions: Hold for SBP less than 130 mmHg insulin glargine [Lantus Solostar U-100 Insulin] 100 unit/mL (3 mL) insulin pen 25 unit SC QHS Qty: 15 0RF Rx Instructions: Hold if glucose less than 130 mg/dl ondansetron 4 mg tablet,disintegrating 4 mg PO Q6H PRN (Reason: nausea and vomiting) Qty: 7 0RF ciprofloxacin HCl 750 mg tablet 750 mg PO BID 10 Days Qty: 20 0RF clindamycin HCl 300 mg capsule 300 mg PO 4X/DAY 10 Days Qty: 40 0RF Primary Care Provider: Will Shukla Referrals: Vazquez,Will, MD [Primary Care Provider] - Disposition Disposition: Home, Self Care
[2022-05-15 22:20] LABS: Anion Gap 6 (5-15); BUN 14 mg/dL (7-18); BUN/Creat Ratio 13.6 RATIO (10-20); Calcium,Total 9.6 mg/dL (8.5-10.1); Chloride 102 mmol/L (98-107); Creatinine, Serum 1.03 mg/dL (0.55-1.02); EST Glomerular Filtration Rate 63 mL/min (>60); Est Glom Filt Rate - Afr Amer 76 mL/min (>60); Estimated Creatinine Clearance 54.79 ml/min; Glucose 315 mg/dL (74-106); Potassium 3.9 mmol/L (3.5-5.1); Sodium Level 136 mmol/L (136-145)
--- NOTE | 2022-05-15 22:22 | RAD_ITS ---
EXAM: XR CHEST, 1 VIEW CLINICAL INDICATION: fever TECHNIQUE: Frontal view of the chest. This report was created using [employer] report generation technology. COMPARISON: Chest radiograph of 11/20/2021. FINDINGS: LUNGS AND PLEURAL SPACES: 18 mm lobulated overlies the right apex laterally, unchanged, and could be due to a calcified granuloma or calcified lymph node overlying the right upper lung. No consolidation or edema. No pneumothorax. No effusion. HEART: Unremarkable. Cardiac silhouette not enlarged. Normal pulmonary vasculature. MEDIASTINUM: Central airways and mediastinal contour are unremarkable. BONES/JOINTS: No acute osseous abnormality. SOFT TISSUES: Unremarkable. RAD/Chest 1 View (Portable) IMPRESSION: No significant interval change or acute process. Electronically Signed: Kulwinder Boucher MD at 22:56 EST ,
[2022-05-15 22:27] LABS: Lactic Acid 1.4 mmol/L (0.4-1.9)
== END 2022-05-16 00:05 | disposition home or self-care (01) ==
PROVIDERS: Emergency Provider Emergency Medicine; PCP Family Medicine; Visit Provider Emergency Medicine
DX: Z04.89 Encounter for examination and observation for other specified reasons (principal); E11.42 Type 2 diabetes mellitus with diabetic polyneuropathy; R50.9 Fever, unspecified; E78.5 Hyperlipidemia, unspecified; I10 Essential (primary) hypertension; R82.998 Other abnormal findings in urine; Z20.822 Contact with and (suspected) exposure to COVID-19
CPT/HCPCS: 71045; 80048; 81001; 83605; 84703; 85025; 87040; 87077; 87086; 87088; 87428; 96360; 96361; 99284; J7030; A4216

== ENCOUNTER 2022-07-12 22:52 | Inpatient (IN) | payer MEDICARE, MEDICAID, SELFPAY ==
[2022-07-12 22:53] VITALS: BP 109/71; PULSE 122; RESP 15; TEMP 38.4; O2SAT 98; BMI 37.4
[2022-07-13] VITALS (10 sets, daily range): BP systolic 91–122; BP diastolic 59–81; PULSE 70–103; RESP 14–18; TEMP 36.5–38.1; O2SAT 93–99; BMI 37.8
--- NOTE | 2022-07-13 | RAD_ITS ---
INDICATION: Chronic wound to heel and ball of foot, evaluate for osteomyelitis EXAMINATION/TECHNIQUE: X-RAY - LEFT XR Foot Min 3 Views COMPARISON: (Radiographs from 04/11/2022 FINDINGS: SOFT TISSUES: Soft tissue wound defect again noted at plantar hindfoot. Generalized soft tissue swelling. BONES/JOINTS: No focal osseous destruction demonstrated within calcaneus. Chronic bone loss distal fifth metatarsal and absent great toe distal phalanx again noted. No acute fracture or dislocation. Small posterior calcaneal enthesophyte noted. RAD/Foot min 3 Views IMPRESSION: 1. Persistent soft tissue wound left heel with no radiographic evidence of adjacent osteomyelitis. 2. Chronic absence great toe distal phalanx and distal fifth metatarsal. 3. Mild calcaneal spurring. Electronically Signed: Jhony Mccrary MD at 1:34 EST ,
[2022-07-13] MEDS: Ondansetron 4 MG/2 ML Vial IV ×2 (00:27→08:50)
[2022-07-13] MEDS: 0.9% Normal Saline 1,000 ML 999 ML IV (00:27)
[2022-07-13] MEDS: Morphine 4 MG/ML Syringe IV (00:28)
[2022-07-13 00:29] LABS: Basophil# 0.05 X10^3/uL; Basophil% 0.3 % (0-1); Eosinophil# 0.02 X10^3/uL; Eosinophils% 0.1 % (0-5); Hematocrit 38.8 % (37-47); Hemoglobin 12.7 g/dL (12.0-15.0); Lymphocyte % 6.6 % (19-41); Mean Corp Hgb Conc 32.7 g/dL (32-36); Mean Corpuscular Hgb 27.9 pg (27.0-32.0); Mean Corpuscular Volume 85.3 fL (81-99); Mean Platelet Vol. 10.3 fl (6.2-12.0); Monocyte# 1.05 X10^3/uL; Monocyte% 6.9 % (0-10); NRBC Flagged by Analyzer 0 % (0-5); Neutrophil # 12.99 X10^3/uL (2.7-7.7); Neutrophil % 85.3 % (47-70); Platelet Count 255 K/mm3 (150-450); RBC Distribution Width CV 13.7 % (11.6-14.6); RBC Distribution Width SD 42.2 fl (35.1-43.9); Red Blood Count 4.55 M/mm3 (4.2-5.4); White Blood Count 15.2 K/mm3 (4.4-11.0)
[2022-07-13] MEDS: Acetaminophen 500 MG Tablet 1000 MG PO (00:30)
[2022-07-13 00:31] LABS: Erythrocyte Sedimentation Rate 57 mm/hr (0-30)
[2022-07-13 00:43] LABS: Anion Gap 8 (5-15); BUN 12 mg/dL (7-18); BUN/Creat Ratio 11.1 RATIO (10-20); Calcium,Total 9.3 mg/dL (8.5-10.1); Chloride 101 mmol/L (98-107); Creatinine, Serum 1.08 mg/dL (0.55-1.02); EST Glomerular Filtration Rate 60 mL/min (>60); Est Glom Filt Rate - Afr Amer 72 mL/min (>60); Estimated Creatinine Clearance 52.25 ml/min; Glucose 235 mg/dL (74-106); Potassium 4.3 mmol/L (3.5-5.1); Sodium Level 132 mmol/L (136-145)
[2022-07-13 00:48] LABS: Lactic Acid 1.6 mmol/L (0.4-1.9)
[2022-07-13] MEDS: Clindamycin 900 MG/50 ML BAG 75 MG IV (00:48)
--- NOTE | 2022-07-13 01:00 | EX.ED.DYSGE1 ---
HPI History of Present Illness Chief Complaint: Fever Narrative Narrative: Patient is a 41-year-old female with past medical history of insulin-dependent diabetes chronic kidney disease with chronic indwelling Morales catheter and previous osteomyelitis of her left great toe requiring amputation. Patient states roughly 1 week ago she injured her left foot and went to an outside hospital as she thought she had a broken bone. She states x-rays that time did not show anything acute but she was having some pain and drainage from her chronic wound so they placed her on antibiotics. Patient is unsure what antibiotic she was given but states has been taking it for 5 to 7 days and despite this she developed a fever up to 102 at home yesterday. She states that there is no abdominal pain nausea vomiting cough or congestion and therefore the fever she is concerned for repeat foot infection and comes in for evaluation. [facility] Medical History (Updated 07/13/22 @ 04:59 by Gloria Beck) Anxiety and depression Arthritis Manley's palsy Cellulitis of left lower extremity Chronic back pain Chronic nausea Colostomy in place Constipation Delayed wound healing Depression Diabetes mellitus, type II Diabetic foot infection Diabetic polyneuropathy Diabetic ulcer of left heel with fat layer exposed DJD (degenerative joint disease) of thoracic spine Dysthymic disorder Essential hypertension Hematochezia History of kidney stones History of migraine Hydronephrosis of right kidney Hyperglycemia Hyperlipidemia Infection of bladder catheter Insomnia Lipomeningocele Lower extremity edema Morbid obesity with BMI of 40.0-44.9, adult Neurogenic bladder Neurogenic bowel Non-compliance Non-smoker Normochromic normocytic anemia Open wound of left foot Panic attacks PSVT (paroxysmal supraventricular tachycardia) Sepsis Sepsis Spina bifida aperta of lumbar spine Thyroid cyst Type 2 diabetes mellitus with diabetic polyneuropathy Type 2 diabetes mellitus with foot ulcer Ulcer of left heel and midfoot with fat layer exposed Uninodular goiter Urinary tract infection Urinary tract infection UTI (urinary tract infection) UTI (urinary tract infection) Weakness Home Medications furosemide 20 mg tablet 20 mg PO 2200 fluid 08/28/18 [History Last Taken 01/18/22] furosemide 40 mg tablet 40 mg PO BREAKFAST fluid 04/05/19 [History Last Taken 01/19/22] oxybutynin chloride 15 mg tablet,extended release 24 hr 15 mg PO DAILY bladder 11/12/19 [History Last Taken 01/19/22] acetaminophen 500 mg tablet 1,000 mg PO TID PRN PRN Pain Or Fever 02/12/20 [History Last Taken 09/24/20 19:24] trazodone 100 mg tablet 100 mg PO QHS sleep 01/19/21 [History Last Taken Unknown] atorvastatin 80 mg tablet 80 mg PO DAILY cholesterol 01/29/21 [History Last Taken 01/19/22] insulin aspart (niacinamide)(U-100) 100 unit/mL(3 mL) subcutaneous pen 0 - 100 ml subcut PRN PRN Hyperglycemia 01/29/21 [History Last Taken Unknown] pen needle, diabetic 32 gauge x 5/32 (BD Ultra-Fine Hope Pen Needle) #400 ea 03/05/21 [Rx Last Taken Unknown] phenazopyridine 200 mg tablet (Pyridium) 200 mg PO BID PRN PRN Pain 11/20/21 [History Last Taken Unknown] glimepiride 2 mg tablet 2 mg PO BID #180 tabs 01/21/22 [Rx Last Taken 01/19/22] lisinopril 5 mg tablet 2.5 mg PO DAILY #90 tabs 01/21/22 [Rx Last Taken 01/19/22] propranolol 10 mg tablet 5 mg PO BID heart #30 tabs 01/21/22 [Rx Last Taken 01/19/22] ondansetron 4 mg disintegrating tablet 4 mg PO Q6H PRN nausea and vomiting #7 tabs 03/22/22 [Rx Last Taken Unknown] ciprofloxacin HCl 750 mg tablet 750 mg PO BID 10 days #20 tabs 04/11/22 [Rx Last Taken Unknown] clindamycin HCl 300 mg capsule 300 mg PO 4X/DAY 10 days #40 caps 04/11/22 [Rx Last Taken Unknown] insulin glargine 100 unit/mL (3 mL) subcutaneous pen (Lantus Solostar U-100 Insulin) 33 unit subcut QHS dm 07/13/22 [History Last Taken Unknown] Allergy/AdvReac Type Severity Reaction Status Date / Time ceftriaxone [[facility]] Allergy Hives Verified 07/12/22 22:59 mushroom Allergy Anaphylaxis Verified 07/12/22 22:59 peanut Allergy Anaphylaxis Verified 07/12/22 22:59 fentanyl AdvReac Low blood Verified 07/12/22 22:59 pressure gabapentin AdvReac Other Verified 07/12/22 22:59 Gadolinium-MRI Contrast AdvReac Vomiting Verified 07/12/22 22:59 Medium Latex, Natural Rubber AdvReac Rash Verified 07/12/22 22:59 vancomycin AdvReac Rash Verified 07/12/22 22:59 zosyn Allergy NEEDS Uncoded 07/13/22 03:46 FOLLOW-UP Family History Mother CVA (cerebral vascular accident) Thyroid disorder Diabetes Hypertension Heart disease Hyperlipidemia Myocardial infarction, Onset Age: 54 mother had diabetes Father Cancer skin Grandmother Cancer liver Other Arthritis Skin cancer Surgical History history insertion suprapubic catheter History of cholecystectomy History of dilation and curettage History of spinal surgery Hx of foot surgery Hx of ventral hernia repair S/P colostomy S/P thyroid biopsy (~11/06/19) Status post gastric surgery Social History household members: significant other Smoking Status: Never smoker alcohol intake: current substance use type: does not use ROS ROS ED Constitutional Constitutional ED: Reports chills and fever(s) ENT ENT ED: Denies sore throat Cardiovascular Cardiovascular: Denies chest pain Respiratory/Chest Respiratory/Chest: Denies cough or dyspnea Gastrointestinal Gastrointestinal: Denies abdominal pain, diarrhea, nausea or vomiting Genitourinary Genitourinary ED: Denies dysuria Musculoskeletal Musculoskeletal: Reports other Details: Positive left foot pain Integumentary Reports other Details: Positive left foot swelling and redness ; Denies rash Neurologic Neurologic: Denies headache(s) Hematologic/Lymphatic Hematologic/Lymphatic: Denies easy bleeding or easy bruising EXAM Physical Exam Const Vital Signs: 07/12/22 22:53 07/13/22 00:24 07/13/22 00:46 Temperature 101.2 F H 100.5 F H Temperature Source Oral Temporal Pulse Rate 122 H 101 H Respiratory Rate 15 16 Respiratory Pattern Normal Blood Pressure 109/71 108/74 Blood Pressure Mean 83 85 Pulse Ox 98 93 Oxygen Delivery Method Room Air Room Air 07/13/22 01:00 07/13/22 02:00 07/13/22 02:04 Temperature 98.1 F 98.4 F 98.4 F Temperature Source Temporal Temporal Temporal Pulse Rate 103 H 101 H 101 H Respiratory Rate 18 14 14 Respiratory Pattern Blood Pressure 122/81 H 104/75 104/75 Blood Pressure Mean 94 84 84 Pulse Ox 96 93 98 Oxygen Delivery Method Room Air Room Air Room Air Positive well nourished, well developed and obese General Appearance ED: well developed Nutritional Appearance: obese HEENT Reports moist mucous membranes Eyes PERRL and EOMs intact bilaterally Neck supple Neck Narrative: No nuchal rigidity or meningeal signs Resp normal respiratory effort and clear to auscultation bilaterally Cardio regular rhythm Rate: tachycardic and other Other Details: Tachycardic rate with regular rhythm GI normal to inspection, nondistended, normoactive bowel sounds, non-tender, non-distended and no masses GI Narrative: No voluntary guarding or rigidity no pulsatile mass Auscultation: normoactive bowel sounds Palpation: soft Narrative: Chronic indwelling Morales catheter draining clear yellow urine Extremity Extremity Narrative: Left lower extremity is neurovascular intact. Patient has chronic changes with amputation of her great toe from previous osteomyelitis. She has chronic ulcerative wounds to the plantar aspect of the left foot in the calcaneal region as well. Wounds have good granulation tissue without surrounding erythema or purulent discharge. The medial aspect of the foot however is edematous and erythematous and warm to touch. The redness extends back to just below the medial malleolus. There is no streaking past this. No crepitance noted Neuro oriented x3 and CN's II-XII intact bilaterally Sensorium / Orientation: alert Psych mental status grossly normal Skin Skin Narrative: Soft tissue changes to the left lower leg as documented above MDM MDM MDM Narrative Medical decision making narrative: Patient presented to the ER febrile and as she had no other symptoms to explain the fever such as cough congestion nausea or vomiting and exam now showed redness and swelling to the left foot there is concern for development of osteomyelitis. Secondary to his basic blood work was obtained along with blood cultures and patient was started on clindamycin and ciprofloxacin as she has an allergy to vancomycin and penicillin. The x-ray revealed no obvious signs of osteomyelitis but patient does have elevation to her CRP ESR and white blood cell count concerning for systemic infection. The case was discussed with podiatry on-call. They agree at this time as patient's been on outpatient antibiotics now has a true documented fever along with physical exam findings concerning for infection that she needs to be brought into the hospital for IV antibiotics and further evaluation under MRI. They recommend because of her complex medical history should be admitted to the medical service. Secondary to this medicine was contacted and they do agree to accept the patient at this time. The plan of care was discussed with the patient and she is agreeable to it Lab Data Attestation: I reviewed the patient's lab results. Labs: Laboratory Results - last 24 hr 07/13/22 07/13/22 07/13/22 00:15 00:15 00:15 WBC 15.2 H RBC 4.55 Hgb 12.7 Hct 38.8 MCV 85.3 MCH 27.9 MCHC 32.7 RDW Std Deviation 42.2 RDW Coeff of Claude 13.7 Plt Count 255 MPV 10.3 Immature Gran % (Auto) 0.800 Neut % (Auto) 85.3 H Lymph % (Auto) 6.6 L [place] % (Auto) 6.9 Eos % (Auto) 0.1 Baso % (Auto) 0.3 Absolute Neuts (auto) 13.0 H Absolute Lymphs (auto) 1.00 Nucleated RBC % 0 ESR 57 H Sodium 132 L Potassium 4.3 Chloride 101 Carbon Dioxide 23.0 Anion Gap 8 BUN 12 Creatinine 1.08 H Estim Creat Clear Calc 52.25 Est GFR (MDRD) Af Amer 72 Est GFR (MDRD) Non-Af 60 BUN/Creatinine Ratio 11.1 Glucose 235 H Lactic Acid 1.6 Calcium 9.3 C-React Prot Ext Range 53.70 H Radiography Diagnostic Testing: Clinical Impression(s) from Imaging Studies Foot X-Ray 07/13/22 00:00 IMPRESSION: 1. Persistent soft tissue wound left heel with no radiographic evidence of adjacent osteomyelitis. 2. Chronic absence great toe distal phalanx and distal fifth metatarsal. 3. Mild calcaneal spurring. Electronically Signed: Jhony Mccrary MD at 1:34 EST , X-ray of the left foot reveals chronic findings without acute fracture dislocation or signs of osteomyelitis Discharge Plan Dx/Rx/DC Orders Clinical Impression: Cellulitis, Failure of outpatient treatment, Diabetes mellitus, type II, Pyrexia Disposition Disposition: [facility]
[2022-07-13] MEDS: Ciprofloxacin 400 MG/200 ML BAG 200 MG IV (02:50)
--- NOTE | 2022-07-13 03:47 | PCM.HP.STD ---
HPI - General General Date of Admission: 07/13/22 Date of Service: 07/13/22 Chief Complaint: Fever HPI Narrative HEBER BAILON, is a 41-year-old female with a history of spina bifida with colostomy since September and suprapubic cath for 4 years, type 2 diabetes mellitus, CKD stage III unclear subtype, chronic left foot wounds who presented to [facility] 07/13/2022 for fevers and right foot cellulitis since Monday. She reports chronic wounds on her left foot at the heel and bottom of first MTP since November which has been managed by her maintenance aide and had been improving however 1 week ago she fell and went to [facility]. Foot x-ray unremarkable but they suspected she is developing an infection and was placed on antibiotics ?Clindamycin. She then noticed on Monday that she was developing fevers and over the past day has had nausea and vomiting with poor p.o. intake and when she was febrile she feels slightly short of breath with tight chest. Does have some pain in the foot but reports overall poor feeling, denied other complaints at this time. In the ED she was noted to have a white blood cell count of 15 with an ESR of 57 and a CRP of 53. Foot x-ray unrevealing. Podiatry contacted and recommended admission with antibiotics and MRI in the a.m. She received clindamycin and Cipro as well as morphine 4 mg, 1 g of Tylenol, 1 L normal saline. Upon evaluation patient reports that she was feeling better than she had on presentation. Does still have some pain in that foot and some patchy erythema appreciated. Still has some nausea, did not voice any other complaints at this time. Did discuss her allergy to gadolinium and she reports that she feels nauseous when she gets contrast however if she sits up for 5 minutes after getting the contrast she does not have this problem and has not had this problem at other facilities. Does endorse that she turns red when she takes vancomycin and gets itchy, was told report that she had an anaphylactic reaction to Zosyn, discussed this with her and she reported that she did think she had an anaphylactic reaction when she was given it prior to her colostomy surgery however it did not appear to be on her allergy list upon further review, will likely need to be revisited and clarified. [facility] Medical History Anxiety and depression Arthritis Manley's palsy Cellulitis of left lower extremity Chronic back pain Chronic nausea Colostomy in place Constipation Delayed wound healing Diabetes mellitus, type II Diabetic foot infection Diabetic polyneuropathy Diabetic ulcer of left heel with fat layer exposed DJD (degenerative joint disease) of thoracic spine Dysthymic disorder Essential hypertension Hematochezia History of kidney stones History of migraine Hydronephrosis of right kidney Hyperglycemia Hyperlipidemia Infection of bladder catheter Insomnia Lipomeningocele Lower extremity edema Morbid obesity with BMI of 40.0-44.9, adult Neurogenic bladder Neurogenic bowel Non-compliance Non-smoker Normochromic normocytic anemia Open wound of left foot Panic attacks PSVT (paroxysmal supraventricular tachycardia) Sepsis Sepsis Spina bifida aperta of lumbar spine Thyroid cyst Type 2 diabetes mellitus with diabetic polyneuropathy Type 2 diabetes mellitus with foot ulcer Ulcer of left heel and midfoot with fat layer exposed Uninodular goiter Urinary tract infection Urinary tract infection UTI (urinary tract infection) UTI (urinary tract infection) Weakness Home Medications furosemide 20 mg tablet 20 mg PO 2200 fluid 08/28/18 [History Last Taken 01/18/22] furosemide 40 mg tablet 40 mg PO BREAKFAST fluid 04/05/19 [History Last Taken 01/19/22] oxybutynin chloride 15 mg tablet,extended release 24 hr 15 mg PO DAILY bladder 11/12/19 [History Last Taken 01/19/22] acetaminophen 500 mg tablet 1,000 mg PO TID PRN PRN Pain Or Fever 02/12/20 [History Last Taken 09/24/20 19:24] trazodone 100 mg tablet 100 mg PO QHS sleep 01/19/21 [History Last Taken Unknown] atorvastatin 80 mg tablet 80 mg PO DAILY cholesterol 01/29/21 [History Last Taken 01/19/22] insulin aspart (niacinamide)(U-100) 100 unit/mL(3 mL) subcutaneous pen 0 - 100 ml subcut PRN PRN Hyperglycemia 01/29/21 [History Last Taken Unknown] pen needle, diabetic 32 gauge x 5/32 (BD Ultra-Fine Hope Pen Needle) #400 ea 03/05/21 [Rx Last Taken Unknown] phenazopyridine 200 mg tablet (Pyridium) 200 mg PO BID PRN PRN Pain 11/20/21 [History Last Taken Unknown] glimepiride 2 mg tablet 2 mg PO BID #180 tabs 01/21/22 [Rx Last Taken 01/19/22] lisinopril 5 mg tablet 2.5 mg PO DAILY #90 tabs 01/21/22 [Rx Last Taken 01/19/22] propranolol 10 mg tablet 5 mg PO BID heart #30 tabs 01/21/22 [Rx Last Taken 01/19/22] ondansetron 4 mg disintegrating tablet 4 mg PO Q6H PRN nausea and vomiting #7 tabs 03/22/22 [Rx Last Taken Unknown] ciprofloxacin HCl 750 mg tablet 750 mg PO BID 10 days #20 tabs 04/11/22 [Rx Last Taken Unknown] clindamycin HCl 300 mg capsule 300 mg PO 4X/DAY 10 days #40 caps 04/11/22 [Rx Last Taken Unknown] insulin glargine 100 unit/mL (3 mL) subcutaneous pen (Lantus Solostar U-100 Insulin) 33 unit subcut QHS dm 07/13/22 [History Last Taken Unknown] Allergy/AdvReac Type Severity Reaction Status Date / Time ceftriaxone [From Rocephin] Allergy Hives Verified 07/12/22 22:59 mushroom Allergy Anaphylaxis Verified 07/12/22 22:59 peanut Allergy Anaphylaxis Verified 07/12/22 22:59 fentanyl AdvReac Low blood Verified 07/12/22 22:59 pressure gabapentin AdvReac Other Verified 07/12/22 22:59 Gadolinium-MRI Contrast AdvReac Vomiting Verified 07/12/22 22:59 Medium Latex, Natural Rubber AdvReac Rash Verified 07/12/22 22:59 vancomycin AdvReac Rash Verified 07/12/22 22:59 zosyn Allergy NEEDS Uncoded 07/13/22 03:46 FOLLOW-UP Family History Mother CVA (cerebral vascular accident) Thyroid disorder Diabetes Hypertension Heart disease Hyperlipidemia Myocardial infarction, Onset Age: 54 mother had diabetes Father Cancer skin Grandmother Cancer liver Other Arthritis Skin cancer Surgical History history insertion suprapubic catheter History of cholecystectomy History of dilation and curettage History of spinal surgery Hx of foot surgery Hx of ventral hernia repair S/P colostomy S/P thyroid biopsy (~11/06/19) Status post gastric surgery Social History household members: significant other Smoking Status: Never smoker alcohol intake: current substance use type: does not use ROS ROS Narrative General: Has had intermittent fevers HENT: Denies headache, denies stuffy nose, denies sore throat EYES: Denies changes in vision Resp: Denies cough, denies shortness of breath, did feel slightly short of breath when her fever was present at home this is resolved Cardiac: Denies chest pain GI: Denies abdominal pain, positive nausea with some vomiting and poor p.o. : Denies changes in urination, chronic Morales Extremity: Left lower extremity erythema and wounds on bottom of foot MSK: Denies weakness Neuro: Denies any numbness, denies tingling Heme: Denies any bleeding or bruising Skin: Has erythema on left lower foot Psychiatric: No complaints voiced Vital Signs Vital Signs Vital Signs: 07/12/22 22:53 07/13/22 00:24 07/13/22 00:46 Temperature 101.2 F H 100.5 F H Temperature Source Oral Temporal Pulse Rate 122 H 101 H Respiratory Rate 15 16 Respiratory Pattern Normal Blood Pressure 109/71 108/74 Blood Pressure Mean 83 85 Pulse Ox 98 93 Oxygen Delivery Method Room Air Room Air 07/13/22 01:00 07/13/22 02:00 07/13/22 02:04 Temperature 98.1 F 98.4 F 98.4 F Temperature Source Temporal Temporal Temporal Pulse Rate 103 H 101 H 101 H Respiratory Rate 18 14 14 Respiratory Pattern Blood Pressure 122/81 H 104/75 104/75 Blood Pressure Mean 94 84 84 Pulse Ox 96 93 98 Oxygen Delivery Method Room Air Room Air Room Air Weight Weight: 89.811 kg Body Mass Index (BMI) 37.4 Physical Exam Narrative General: Alert, oriented, no apparent distress HEENT: Atraumatic, normocephalic Eyes: Anicteric, normal conjunctiva, extraocular movements grossly intact Neck: Supple Respiratory: Clear to auscultation bilaterally, normal respiratory effort Cardiovascular: Regular rate and rhythm GI: Soft, nontender, nondistended Extremities: No edema Musculoskeletal: Moving all extremities, some tenderness when pushing on medial side of left ankle with some pain on movement though no limit in range of motion Neuro: No overt focal neurological deficits Skin: Has 2in by 0.74in wound on heel without active drainage and lesion on underside of L MTP joint without drainage, patchy erythema over medial aspect of L foot with patch near medial malleolus as well Psych: Cooperative Results Lab / Micro Data Result Diagrams: 07/13/22 00:15 07/13/22 00:15 Labs: Laboratory Results - last 24 hr 07/13/22 00:15: WBC 15.2 H, RBC 4.55, Hgb 12.7, Hct 38.8, MCV 85.3, MCH 27.9, MCHC 32.7, RDW Std Deviation 42.2, RDW Coeff of Claude 13.7, Plt Count 255, MPV 10.3, Immature Gran % (Auto) 0.800, Neut % (Auto) 85.3 H, Lymph % (Auto) 6.6 L, [place] % (Auto) 6.9, Eos % (Auto) 0.1, Baso % (Auto) 0.3, Absolute Neuts (auto) 13.0 H, Absolute Lymphs (auto) 1.00, Nucleated RBC % 0, ESR 57 H 07/13/22 00:15: Sodium 132 L, Potassium 4.3, Chloride 101, Carbon Dioxide 23.0, Anion Gap 8, BUN 12, Creatinine 1.08 H, Estim Creat Clear Calc 52.25, Est GFR (MDRD) Af Amer 72, Est GFR (MDRD) Non-Af 60, BUN/Creatinine Ratio 11.1, Glucose 235 H, Calcium 9.3, C-React Prot Ext Range 53.70 H 07/13/22 00:15: Lactic Acid 1.6 Radiology Impression Foot X-Ray 07/13/22 00:00 IMPRESSION: 1. Persistent soft tissue wound left heel with no radiographic evidence of adjacent osteomyelitis. 2. Chronic absence great toe distal phalanx and distal fifth metatarsal. 3. Mild calcaneal spurring. Electronically Signed: Jhony Mccrary MD at 1:34 EST , Assessment & Plan Assessment/Plan (1) Cellulitis: QUALIFIERS: Site of cellulitis: extremity Site of cellulitis of extremity: lower extremity Laterality: left Qualified Code(s): L03.116 - Cellulitis of left lower limb (2) CKD (chronic kidney disease): (3) Diabetes mellitus, type II: QUALIFIERS: Diabetes mellitus complication status: with hyperglycemia Diabetes mellitus fdc insulin use: with joint terminal attack controller use Qualified Code(s): E11.65 - Type 2 diabetes mellitus with hyperglycemia; Z79.4 - halfway (current) use of insulin PLAN: Plan #Refractory left lower extremity cellulitis History of foot wounds with poor healing with fever and poor p.o./nausea/vomiting over the past day, increased white blood cell count, increased ESR and CRP who failed outpatient management Podiatry consult Wound care consult We will place on levofloxacin and metronidazole given her reported penicillin allergy and fluids, will obtain MRI, patient reports her gadolinium allergy is vomiting and she does fine if she sits up for 5 minutes after the injection prior to the scan N.p.o. in the event she is evaluated by podiatry and intervention available Pain control We will consult wound care Blood cultures Home Lasix been held due to her nausea, vomiting, poor p.o. and infection requiring hydration, monitor closely #Type 2 diabetes mellitus uncontrolled Continue Lantus Glucose checks and sliding scale insulin Holding home glimepiride #CKD stage III Avoid nephrotoxic agents Appears to be close to baseline Received 1 L, will give IV fluids Holding lisinopril with BP, restart when able #Paroxysmal supraventricular tachycardia Presently vitally stable, takes propranolol at home We will continue this with holding parameters #History of spina bifida with resultant chronic suprapubic catheter and colostomy Supportive care Oxybutynin #DVT ppx: SCDs Brittani Panda MD Time spent in the patient's overall evaluation,decision-making process, review of diagnostic data, adjustment of management, discussion with other providers, nursing nursing and ancillary staff involved in patient's care documentation, 60 Minutes Charges/Coding Visit Charges Inpatient E&M: 87011 Init Hosp L2
--- NOTE | 2022-07-13 04:39 | MRI_ITS ---
ACR Level 3 findings have been noted. An addendum which confirms receipt of the report will follow. STUDY: MRI LEFT FOOT WITH AND WITHOUT CONTRAST REASON FOR EXAM: Female, 41 years old. concerns for osteo +ankle pain TECHNIQUE: Standardized fat and water weighted pulse sequences were obtained in all 3 orthogonal planes, post contrast administration. clariscan 15ml IV was administered for the contrast portion of the examination. COMPARISON: X-ray of the left foot dated April 11, 2022 FINDINGS: Redemonstration of prior surgical amputation of the distal half of the fifth metatarsal bone. A moderate-sized soft tissue ulcer is present on the plantar aspect of the foot beneath the head of the first metatarsal bone and the sesamoids resulting in mild cortical erosion and reactive sclerosis of the medial sesamoid, in addition to mild contrast enhancement and marrow edema on the inner side of the medial sesamoid which is best seen on image 31/40 series 12, consistent with active osteomyelitis. Cellulitis is present in the ulcerated soft tissues beneath the sesamoids first metatarsal head but no soft tissue abscess is present. The ulcer measures 1.36 cm in diameter. Mild subcutaneous edema is present across the plantar aspect of the first and second digits. The visualized ankle bony structures are unremarkable. Normal metatarsophalangeal joint of the hallux. Normal interphalangeal joint of the hallux. Normal proximal and distal phalanges of the great toe. Normal medial and lateral heads of the flexor hallucis brevis tendons. Normal flexor and extensor hallucis longus tendons. Normal second through fifth metatarsophalangeal (MTP) joints. Normal interphalangeal joints of the second through fifth toes. Normal proximal, middle and distal phalanges of the second through fifth toes. Normal flexor and extensor tendons of the second through fifth toes. Normal first through fourth intermetatarsal spaces. Normal remaining visualized metatarsi. There is diffuse atrophy of the intrinsic muscles of the foot consistent with a peripheral neuropathy. MRI/Lower Ext No Joint W/WO Cont IMPRESSION: Osteomyelitis of the medial sesamoid of the great toe 1. A moderate-sized soft tissue ulcer is present on the plantar aspect of the foot beneath the head of the first metatarsal bone and the sesamoids resulting in mild cortical erosion and reactive sclerosis of the medial sesamoid, in addition to mild contrast enhancement and marrow edema on the inner side of the medial sesamoid which is best seen on image 31/40 series 12, consistent with active osteomyelitis. Cellulitis is present in the ulcerated soft tissues beneath the sesamoids first metatarsal head but no soft tissue abscess is present. The ulcer measures 1.36 cm in diameter. Electronically Signed: Rich Rucker MD at 12:02 EST ,
[2022-07-13] MEDS: 0.9% Saline Lock 10 ML Syringe IV ×3 (05:24→12:18)
[2022-07-13] MEDS: 0.9% Normal Saline 1,000 ML 100 ML IV (05:25)
[2022-07-13 06:09] LABS: Absolute Lymphocyte Count 1.49 X10^3/uL (0.83-4.51); Absolute Neutrophil Count 9.2 X10^3/uL (2.0-7.7); Basophil# 0.05 X10^3/uL; Basophil% 0.4 % (0-1); Eosinophil# 0.02 X10^3/uL; Eosinophils% 0.2 % (0-5); Lymphocyte # 1.49 X10^3/ul (0.83-4.51); Lymphocyte % 12.7 % (19-41); Mean Corp Hgb Conc 32.4 g/dL (32-36); Mean Corpuscular Volume 86.5 fL (81-99); Mean Platelet Vol. 10.2 fl (6.2-12.0); Monocyte% 7.7 % (0-10); NRBC Flagged by Analyzer 0 % (0-5); Neutrophil # 9.16 X10^3/uL (2.7-7.7); Neutrophil % 77.8 % (47-70); Platelet Count 212 K/mm3 (150-450); RBC Distribution Width CV 13.7 % (11.6-14.6); RBC Distribution Width SD 43.7 fl (35.1-43.9); Red Blood Count 3.93 M/mm3 (4.2-5.4); White Blood Count 11.8 K/mm3 (4.4-11.0)
[2022-07-13] MEDS: metroNIDAZOLE 500 MG/100 ML BAG 100 MG IV ×3 (06:11→21:24)
[2022-07-13] MEDS: Insulin Lispro 100 UNIT/ML INSULN.PEN SC ×3 (06:16→21:24)
[2022-07-13 06:42] LABS: Erythrocyte Sedimentation Rate 69 mm/hr (0-30)
[2022-07-13 06:45] LABS: ALB/GLOB Ratio 0.6 RATIO (0.9-2.4); AST(SGOT) 39 U/L (15-37); Alanine Aminotransfer ALT/SGPT 45 U/L (13-56); Albumin, Serum 2.8 g/dL (3.2-5.0); Alkaline Phosphatase 90 U/L (45-117); Anion Gap 7 (5-15); BUN 12 mg/dL (7-18); BUN/Creat Ratio 12.6 RATIO (10-20); Calcium,Total 8.5 mg/dL (8.5-10.1); Chloride 105 mmol/L (98-107); Creatinine, Serum 0.95 mg/dL (0.55-1.02); EST Glomerular Filtration Rate 69 mL/min (>60); Est Glom Filt Rate - Afr Amer 84 mL/min (>60); Globulin 4.6 g/dL (2.2-4.2); Glucose 236 mg/dL (74-106); Protein, Total 7.4 g/dL (6.4-8.2); Sodium Level 136 mmol/L (136-145)
[2022-07-13 07:50] LABS: Bedside Glucose 228 mg/dL (74-106)
[2022-07-13 08:05] LABS: Hemoglobin A1c 10.5 % (3.8-5.6)
[2022-07-13] MEDS: Tolterodine Tartrate 4 MG CAP.SA PO (08:40)
--- NOTE | 2022-07-13 09:58 | WOUNDNOTE ---
wound photo: left foot
--- NOTE | 2022-07-13 09:59 | WOUNDNOTE ---
skin photo: left foot
[2022-07-13] MEDS: levoFLOXacin IV 500 MG/100 ML BAG 100 MG IV (10:53)
[2022-07-13] MEDS: oxyCODONE 5 MG Tablet PO ×2 (11:00→21:26)
--- NOTE | 2022-07-13 11:02 | CASEMGMT ---
Addendum entered by Osiel Foreman 07/13/22 11:21: Pt states her manages all of her wound care and wishes to have him continue to do this once she returns home. She states he does colostomy care and changes appliance Q 7D, catheter care/dsg change Q 1-2 days, and wound care/dsg changes to foot daily. Original Note: RN?CM?[employer]INE ADJUSTER?CM?to room to meet with patient for initial transition planning/care coordination?assessment.?RN?CM?introduced self and role at [facility].? Pt voices understanding and consents to?assessment?at this time.? Pt resting in bed in no distress at this time.? Pt is A/O at this time and answers all questions appropriately.?? Care providers, pharmacy, and demographics verified/updated at this time. PCP:Vazquez Specialists: Dr Cory Box- uro at [facility]. Pt states she goes monthly for nurse visit to have SP catheter changed Dr Hancock-urology. Has an appt 07/20 Dr Yusuf, colorectal surgeon Dr Gomez-podiatry Preferred Pharmacy: [facility] [place] Insurance: My Care [facility], [facility] Community Plan Prescription Benefit: yes LW/HPOA: Pt denies having a LW/DPOA and denies need for info regarding AD. LNOK: Jay Paiz, ; Kimberley Peñaloza [facility] Living Arrangements: Pt lives with , pt's father, and step dtr (every other weekend) in a two story house with 1 step to enter. Pt reports her helps her with all ADL's and IADL's and she denies concerns at home. Transportation: Pt provides transportation for pt. DME: Pt has a shower chair, cane, walker, rollator, w/c and [employer] CGM system at home. Pt states she had to remove the sensor today for the MRI, but her will be coming in today to put it back in. Pt gets her ostomy supplies through [employer] and pt takes care of ordering these. HHC/SNF: Pt has had HHC in the past but does not know which agency it was from. Pt has been to [facility] and [facility]. Pt wishes to return home and states has no concerns with going home at time of discharge.? MRI results pending. Pt states she has administered IV atb's @ home in the past and if IV atb's are needed @ d/c, she wishes to go home w/HHC, otherwise, she does not want HHC. CM?to follow for any further discharge planning/needs.? Pt voices no further concerns/needs at this time.? Advised pt to ask for?CM?if any further questions/concerns/needs arise.? Voices understanding. PLAN:??TBD. Home w/HHC if IV atb's are needed. Dylan BSN?RN?CM
[2022-07-13 11:35] LABS: Bedside Glucose 160 mg/dL (74-106)
--- NOTE | 2022-07-13 12:01 | CON.PCM_ITS ---
Assessment & Plan Assessment/Plan (1) Cellulitis of left lower limb: (2) Diabetes mellitus with diabetic polyneuropathy: (3) Type 2 diabetes mellitus with foot ulcer: (4) Non-pressure chronic ulcer of left heel and midfoot with fat layer exposed: PLAN: Plan Evaluation performed. Reviewed conditions and treatment options. Reviewed diagnostic data. MRI results pending at this time. Cultures have been obtained and pending. Patient is on IV antibiotics. After consent obtained and left foot ulcerations were debrided using a 15 blade in sharp excisional fashion removing nonviable tissue - was debrided down to healthy viable tissue, no anesthesia was needed due to patient's neuropathy and hemostasis achieved with gauze and pressure. Post debridement the ulcer left heal measured 3cm x 1.5cm and left sub 1st met head 1.5cm x 1.0cm - both down to subcutaneous tissue layer which is depth of the debridement. Betadine gauze, kerlix and richard dressing applied - change daily. No weightbearing left foot. Podiatry will continue to follow, thank you for consultation. HPI Consult Data Date of Consult: 07/13/22 HPI Narrative Reason for Consultation: Left foot infection HPI Narrative: HEBER BAILON, is a 41 F who presents with wounds on left foot and cellulitis. She relates sites were doing good but recently worsened. She has redness to the foot. She was admitted for further management, she just got back from MRI. She has no other complaints and is resting comfortably in bed. No f/c/n/v. [facility] Medical History (Updated 07/13/22 @ 12:[address] Will Guo, DPTre) Anxiety and depression Arthritis Manley's palsy Cellulitis of left lower extremity Chronic back pain Chronic nausea Colostomy in place Constipation Delayed wound healing Depression Diabetes mellitus, type II Diabetic foot infection Diabetic polyneuropathy Diabetic ulcer of left heel with fat layer exposed DJD (degenerative joint disease) of thoracic spine Dysthymic disorder Essential hypertension Hematochezia History of kidney stones History of migraine Hydronephrosis of right kidney Hyperglycemia Hyperlipidemia Infection of bladder catheter Insomnia Lipomeningocele Lower extremity edema Morbid obesity with BMI of 40.0-44.9, adult Neurogenic bladder Neurogenic bowel Non-compliance Non-smoker Normochromic normocytic anemia Open wound of left foot Panic attacks PSVT (paroxysmal supraventricular tachycardia) Sepsis Sepsis Spina bifida aperta of lumbar spine Thyroid cyst Type 2 diabetes mellitus with diabetic polyneuropathy Type 2 diabetes mellitus with foot ulcer Ulcer of left heel and midfoot with fat layer exposed Uninodular goiter Urinary tract infection Urinary tract infection UTI (urinary tract infection) UTI (urinary tract infection) Weakness Home Medications furosemide 20 mg tablet 20 mg PO 2200 fluid 08/28/18 [History Last Taken 01/18/22] furosemide 40 mg tablet 40 mg PO BREAKFAST fluid 04/05/19 [History Last Taken 01/19/22] oxybutynin chloride 15 mg tablet,extended release 24 hr 15 mg PO DAILY bladder 11/12/19 [History Last Taken 01/19/22] acetaminophen 500 mg tablet 1,000 mg PO TID PRN PRN Pain Or Fever 02/12/20 [History Last Taken 09/24/20 19:24] trazodone 100 mg tablet 100 mg PO QHS sleep 01/19/21 [History Last Taken Unknown] atorvastatin 80 mg tablet 80 mg PO DAILY cholesterol 01/29/21 [History Last Taken 01/19/22] insulin aspart (niacinamide)(U-100) 100 unit/mL(3 mL) subcutaneous pen 0 - 100 ml subcut PRN PRN Hyperglycemia 01/29/21 [History Last Taken Unknown] pen needle, diabetic 32 gauge x 5/32 (BD Ultra-Fine Hope Pen Needle) #400 ea 03/05/21 [Rx Last Taken Unknown] phenazopyridine 200 mg tablet (Pyridium) 200 mg PO BID PRN PRN Pain 11/20/21 [History Last Taken Unknown] glimepiride 2 mg tablet 2 mg PO BID #180 tabs 01/21/22 [Rx Last Taken 01/19/22] lisinopril 5 mg tablet 2.5 mg PO DAILY #90 tabs 01/21/22 [Rx Last Taken 01/19/22] propranolol 10 mg tablet 5 mg PO BID heart #30 tabs 01/21/22 [Rx Last Taken 01/19/22] ondansetron 4 mg disintegrating tablet 4 mg PO Q6H PRN nausea and vomiting #7 tabs 03/22/22 [Rx Last Taken Unknown] ciprofloxacin HCl 750 mg tablet 750 mg PO BID 10 days #20 tabs 04/11/22 [Rx Last Taken Unknown] clindamycin HCl 300 mg capsule 300 mg PO 4X/DAY 10 days #40 caps 04/11/22 [Rx Last Taken Unknown] insulin glargine 100 unit/mL (3 mL) subcutaneous pen (Lantus Solostar U-100 Insulin) 33 unit subcut QHS dm 07/13/22 [History Last Taken Unknown] Allergy/AdvReac Type Severity Reaction Status Date / Time ceftriaxone [From Rocephin] Allergy Hives Verified 07/12/22 22:59 mushroom Allergy Anaphylaxis Verified 07/12/22 22:59 peanut Allergy Anaphylaxis Verified 07/12/22 22:59 fentanyl AdvReac Low blood Verified 07/12/22 22:59 pressure gabapentin AdvReac Other Verified 07/12/22 22:59 Gadolinium-MRI Contrast AdvReac Vomiting Verified 07/12/22 22:59 Medium Latex, Natural Rubber AdvReac Rash Verified 07/12/22 22:59 vancomycin AdvReac Rash Verified 07/12/22 22:59 zosyn Allergy NEEDS Uncoded 07/13/22 03:46 FOLLOW-UP Family History Mother CVA (cerebral vascular accident) Thyroid disorder Diabetes Hypertension Heart disease Hyperlipidemia Myocardial infarction, Onset Age: 54 mother had diabetes Father Cancer skin Grandmother Cancer liver Other Arthritis Skin cancer Surgical History history insertion suprapubic catheter History of cholecystectomy History of dilation and curettage History of spinal surgery Hx of foot surgery Hx of ventral hernia repair S/P colostomy S/P thyroid biopsy (~11/06/19) Status post gastric surgery Social History household members: significant other Smoking Status: Never smoker alcohol intake: current substance use type: does not use Physical Exam Const alert, oriented x3 and no apparent distress Constitutional Narrative: Left foot ulcer sub 1st met head with purulence and overlying nonviable tissue, down to subcutaneous tissue, left heel ulceration with nonviable tissue as well and down to subcutaneous tissue. There is some cellulitis to the left foot. There is no pain to the left foot at this time, there is chronic peripheral neuropathy and diffuse weakness which is chronic. Vascular status intact bilateral foot. No open lesions right foot. Lab / Micro Data Result Diagrams: 07/13/22 06:02 07/13/22 06:02 Labs: Laboratory Results - last 24 hr 07/13/22 00:15: WBC 15.2 H, RBC 4.55, Hgb 12.7, Hct 38.8, MCV 85.3, MCH 27.9, M CHC 32.7, RDW Std Deviation 42.2, RDW Coeff of Claude 13.7, Plt Count 255, MPV 10.3, Immature Gran % (Auto) 0.800, Neut % (Auto) 85.3 H, Lymph % (Auto) 6.6 L, Candler % (Auto) 6.9, Eos % (Auto) 0.1, Baso % (Auto) 0.3, Absolute Neuts (auto) 13.0 H, Absolute Lymphs (auto) 1.00, Nucleated RBC % 0, ESR 57 H 07/13/22 00:15: Sodium 132 L, Potassium 4.3, Chloride 101, Carbon Dioxide 23.0, Anion Gap 8, BUN 12, Creatinine 1.08 H, Estim Creat Clear Calc 52.25, Est GFR (MDRD) Af Amer 72, Est GFR (MDRD) Non-Af 60, BUN/Creatinine Ratio 11.1, Glucose 235 H, Calcium 9.3, C-React Prot Ext Range 53.70 H 07/13/22 00:15: Lactic Acid 1.6 07/13/22 06:02: WBC 11.8 H, RBC 3.93 L, Hgb 11.0 L, Hct 34.0 L, MCV 86.5, MCH 28.0, MCHC 32.4, RDW Std Deviation 43.7, RDW Coeff of Claude 13.7, Plt Count 212, MPV 10.2, Immature Gran % (Auto) 1.200 H, Neut % (Auto) 77.8 H, Lymph % (Auto) 12.7 L, Candler % (Auto) 7.7, Eos % (Auto) 0.2, Baso % (Auto) 0.4, Absolute Neuts (auto) 9.2 H, Absolute Lymphs (auto) 1.49, Nucleated RBC % 0, ESR 69 H 07/13/22 06:02: Sodium 136, Potassium 4.0, Chloride 105, Carbon Dioxide 24.0, Anion Gap 7, BUN 12, Creatinine 0.95, Estim Creat Clear Calc 59.40, Est GFR (MDRD) Af Amer 84, Est GFR (MDRD) Non-Af 69, BUN/Creatinine Ratio 12.6, Glucose 236 H, Calcium 8.5, Total Bilirubin 0.50, AST 39 H, ALT 45, Alkaline Phosphatase 90, C-React Prot Ext Range 60.40 H, Total Protein 7.4, Albumin 2.8 L, Globulin 4.6 H, Albumin/Globulin Ratio 0.6 L 07/13/22 06:02: Hemoglobin A1c 10.5 H 07/13/22 06:15: POC Glucose 228 H 07/13/22 11:11: POC Glucose 160 H Radiology Impression Foot X-Ray 07/13/22 00:00 IMPRESSION: 1. Persistent soft tissue wound left heel with no radiographic evidence of adjacent osteomyelitis. 2. Chronic absence great toe distal phalanx and distal fifth metatarsal. 3. Mild calcaneal spurring. Electronically Signed: Jhony Mccrary MD at 1:34 EST ,
[2022-07-13] MEDS: Morphine 2 MG/ML Syringe IV (12:18)
[2022-07-13 16:10] LABS: Bedside Glucose 139 mg/dL (74-106)
--- NOTE | 2022-07-13 16:10 | PCM.HOSP.N ---
Hospitalist Note Patient was seen and examined briefly today, I talked with podiatry about her care also. Patient's left foot ulcerations were debrided at the bedside today by podiatry, MRI however came back as showing changes consistent with active osteomyelitis beneath the head of the first metatarsal bone and the sesamoids. I have elected to have infectious diseases see the patient, patient will remain on her present antibiotic coverage (Levaquin and Flagyl). I talked briefly with infectious diseases about her care.
[2022-07-13] MEDS: Insulin Glargine-YFGN 100 UNIT/ML Pen 33 UNIT SC (21:24)
[2022-07-13] MEDS: Atorvastatin Calcium 80 MG Tablet PO (21:25)
[2022-07-13] MEDS: Acetaminophen 325 MG Tablet 650 MG PO (21:26)
[2022-07-13 21:50] LABS: Bedside Glucose 216 mg/dL (74-106)
[2022-07-14] VITALS (7 sets, daily range): BP systolic 85–112; BP diastolic 53–71; PULSE 66–75; RESP 15–18; TEMP 36.4–36.8; O2SAT 97–100
[2022-07-14] MEDS: metroNIDAZOLE 500 MG/100 ML BAG 100 MG IV ×3 (05:35→21:21)
[2022-07-14 05:56] LABS: Bedside Glucose 141 mg/dL (74-106)
--- NOTE | 2022-07-14 06:58 | PN_ITS ---
Subjective Subjective Patient was seen this morning for follow up on left foot. She is resting comfortably in bed. She has no new complaints. No fevers. Objective Data Objective Data Vital Signs: Vital Signs Temp Pulse Resp BP Pulse Ox O2 Del Method 98.2 F 70 15 106/70 99 Room Air 07/14/22 05:00 07/14/22 05:00 07/14/22 05:00 07/14/22 05:00 07/14/22 05:00 07/14/22 05:00 Oxygen Delivery Method Room Air Weight: 90.9 kg Body Mass Index (BMI) 37.8 Intake & Output: Intake and Output for Last 24 Hours 07/12/22 07/13/22 07/14/22 23:59 23:59 23:59 Intake Total 2360.01 / 2600.01 340 / 340 Output Total 1400 / 1800 400 / 400 Balance 960.01 / 800.01 -60 / -60 Lab / Micro Data Result Diagrams: 07/13/22 06:02 07/13/22 06:02 Labs: Laboratory Results - last 24 hr 07/13/22 06:02: Hemoglobin A1c 10.5 H 07/13/22 06:15: POC Glucose 228 H 07/13/22 11:11: POC Glucose 160 H 07/13/22 15:29: POC Glucose 139 H 07/13/22 21:03: POC Glucose 216 H 07/14/22 05:35: POC Glucose 141 H Micro: Microbiology 07/13/22 00:15 Blood Culture (Wb) - Anticubital Right Blood Culture - Preliminary Radiography Diagnostic Testing: Radiology Impression Lower Extremity MRI 07/13/22 04:39 IMPRESSION: Osteomyelitis of the medial sesamoid of the great toe 1. A moderate-sized soft tissue ulcer is present on the plantar aspect of the foot beneath the head of the first metatarsal bone and the sesamoids resulting in mild cortical erosion and reactive sclerosis of the medial sesamoid, in addition to mild contrast enhancement and marrow edema on the inner side of the medial sesamoid which is best seen on image 31/40 series 12, consistent with active osteomyelitis. Cellulitis is present in the ulcerated soft tissues beneath the sesamoids first metatarsal head but no soft tissue abscess is present. The ulcer measures 1.36 cm in diameter. Electronically Signed: Rich Rucker MD at 12:02 EST , ADDENDUM: 07/13/22 1318 IMPRESSION: Osteomyelitis of the medial sesamoid of the great toe 1. A moderate-sized soft tissue ulcer is present on the plantar aspect of the foot beneath the head of the first metatarsal bone and the sesamoids resulting in mild cortical erosion and reactive sclerosis of the medial sesamoid, in addition to mild contrast enhancement and marrow edema on the inner side of the medial sesamoid which is best seen on image 31/40 series 12, consistent with active osteomyelitis. Cellulitis is present in the ulcerated soft tissues beneath the sesamoids first metatarsal head but no soft tissue abscess is present. The ulcer measures 1.36 cm in diameter. N.B. : Coreen Bolanos RN, confirmed on 07/13/2022 13:11:10 (ET) that the healthcare facility has received the radiology report. Electronically Signed: Rich Rucker MD at 12:02 EST , Physical Exam Const alert, oriented x3 and no apparent distress Constitutional Narrative: Left foot ulcer sub 1st met head s/p debridement with healthy viable tissues down to subcutaneous tissue, left heel ulceration s/p debridement with healthy and viable tissues, down to subcutaneous tissue. Cellulitis left foot significantly improved. There is no pain to the left foot at this time, there is chronic peripheral neuropathy and diffuse weakness which is chronic. Vascular status intact bilateral foot. No open lesions right foot. Assessment & Plan Assessment/Plan (1) Cellulitis of left lower limb: (2) Diabetes mellitus with diabetic polyneuropathy: (3) Type 2 diabetes mellitus with foot ulcer: (4) Non-pressure chronic ulcer of left heel and midfoot with fat layer exposed: PLAN: Plan Evaluation performed. Reviewed conditions and treatment options. Reviewed diag nostic data. MRI obtained and noted to have findings c/w osteomyelitis to the medial sesamoid. This was discussed with patient. Discussed IV antibiotic, wound care, and also surgical options. Discussed each and she relates she would like to discuss with her . Cultures have been obtained. Patient is on IV antibiotics. ID has been consulted. No weightbearing left foot. Podiatry will continue to follow, thank you for consultation.
[2022-07-14] MEDS: Tolterodine Tartrate 4 MG CAP.SA PO (10:11)
--- NOTE | 2022-07-14 10:23 | CON.PCM.ID_ITS ---
Assessment & Plan Assessment/Plan (1) Diabetes mellitus with diabetic polyneuropathy: (2) Foot osteomyelitis, left: PLAN: Wound cx pending. May need surgical I&D. Has tolerated cefepime and augmentin in the past. Will cover with dapto/cefepime/flagyl for now. Will follow, thank you HPI Consult Data Date of Consult: 07/14/22 HPI Narrative Reason for Consultation: osteo HPI Narrative: HEBER BAILON, is a 41 F with DM neuropathy, prior h/o foot osteo, presented with one week of worsening of chronic L foot ulcer. Reports new pain, redness, swelling, and purulent drainage. Had associated fever, chills, and nausea. Came to ED, admitted on levaquin/flagyl. MRI showed osteo, bedside I&D done by podiatry. Full ROS performed and neg except as noted above. [facility] Medical History Anxiety and depression Arthritis Manley's palsy Cellulitis of left lower extremity Chronic back pain Chronic nausea Colostomy in place Constipation Delayed wound healing Depression Diabetes mellitus, type II Diabetic foot infection Diabetic polyneuropathy Diabetic ulcer of left heel with fat layer exposed DJD (degenerative joint disease) of thoracic spine Dysthymic disorder Essential hypertension Hematochezia History of kidney stones History of migraine Hydronephrosis of right kidney Hyperglycemia Hyperlipidemia Infection of bladder catheter Insomnia Lipomeningocele Lower extremity edema Morbid obesity with BMI of 40.0-44.9, adult Neurogenic bladder Neurogenic bowel Non-compliance Non-smoker Normochromic normocytic anemia Open wound of left foot Panic attacks PSVT (paroxysmal supraventricular tachycardia) Sepsis Sepsis Spina bifida aperta of lumbar spine Thyroid cyst Type 2 diabetes mellitus with diabetic polyneuropathy Type 2 diabetes mellitus with foot ulcer Ulcer of left heel and midfoot with fat layer exposed Uninodular goiter Urinary tract infection Urinary tract infection UTI (urinary tract infection) UTI (urinary tract infection) Weakness Home Medications furosemide 20 mg tablet 20 mg PO 2200 fluid 08/28/18 [History Last Taken 01/18/22] furosemide 40 mg tablet 40 mg PO BREAKFAST fluid 04/05/19 [History Last Taken 01/19/22] oxybutynin chloride 15 mg tablet,extended release 24 hr 15 mg PO DAILY bladder 11/12/19 [History Last Taken 01/19/22] acetaminophen 500 mg tablet 1,000 mg PO TID PRN PRN Pain Or Fever 02/12/20 [History Last Taken 09/24/20 19:24] trazodone 100 mg tablet 100 mg PO QHS sleep 01/19/21 [History Last Taken Unknown] atorvastatin 80 mg tablet 80 mg PO DAILY cholesterol 01/29/21 [History Last Taken 01/19/22] insulin aspart (niacinamide)(U-100) 100 unit/mL(3 mL) subcutaneous pen 0 - 100 ml subcut PRN PRN Hyperglycemia 01/29/21 [History Last Taken Unknown] pen needle, diabetic 32 gauge x 5/32 (BD Ultra-Fine Hope Pen Needle) #400 ea 03/05/21 [Rx Last Taken Unknown] phenazopyridine 200 mg tablet (Pyridium) 200 mg PO BID PRN PRN Pain 11/20/21 [History Last Taken Unknown] glimepiride 2 mg tablet 2 mg PO BID #180 tabs 01/21/22 [Rx Last Taken 01/19/22] lisinopril 5 mg tablet 2.5 mg PO DAILY #90 tabs 01/21/22 [Rx Last Taken 01/19/22] propranolol 10 mg tablet 5 mg PO BID heart #30 tabs 01/21/22 [Rx Last Taken 01/19/22] ondansetron 4 mg disintegrating tablet 4 mg PO Q6H PRN nausea and vomiting #7 tabs 03/22/22 [Rx Last Taken Unknown] ciprofloxacin HCl 750 mg tablet 750 mg PO BID 10 days #20 tabs 04/11/22 [Rx Last Taken Unknown] clindamycin HCl 300 mg capsule 300 mg PO 4X/DAY 10 days #40 caps 04/11/22 [Rx Last Taken Unknown] insulin glargine 100 unit/mL (3 mL) subcutaneous pen (Lantus Solostar U-100 Insulin) 33 unit subcut QHS dm 07/13/22 [History Last Taken Unknown] Allergy/AdvReac Type Severity Reaction Status Date / Time ceftriaxone [From [facility]] Allergy Hives Verified 07/12/22 22:59 mushroom Allergy Anaphylaxis Verified 07/12/22 22:59 peanut Allergy Anaphylaxis Verified 07/12/22 22:59 fentanyl AdvReac Low blood Verified 07/12/22 22:59 pressure gabapentin AdvReac Other Verified 07/12/22 22:59 Gadolinium-MRI Contrast AdvReac Vomiting Verified 07/12/22 22:59 Medium Latex, Natural Rubber AdvReac Rash Verified 07/12/22 22:59 vancomycin AdvReac Rash Verified 07/12/22 22:59 zosyn Allergy NEEDS Uncoded 07/13/22 03:46 FOLLOW-UP Family History Mother CVA (cerebral vascular accident) Thyroid disorder Diabetes Hypertension Heart disease Hyperlipidemia Myocardial infarction, Onset Age: 54 mother had diabetes Father Cancer skin Grandmother Cancer liver Other Arthritis Skin cancer Surgical History history insertion suprapubic catheter History of cholecystectomy History of dilation and curettage History of spinal surgery Hx of foot surgery Hx of ventral hernia repair S/P colostomy S/P thyroid biopsy (~11/06/19) Status post gastric surgery Social History household members: significant other Smoking Status: Never smoker alcohol intake: current substance use type: does not use Physical Exam Const alert, oriented x3 and no apparent distress General Appearance: cooperative and well developed HEENT normocephalic and head/scalp atraumatic Eyes PERRL and EOMs intact bilaterally Neck supple and No nodes Resp normal air movement and clear to auscultation bilaterally Cardio regular rate and regular rhythm GI soft to palpation, non-tender and non-distended Extremity General Extremity: edema Skin Skin Narrative: Reviewed photos, L foot swelling, redness, ulceration Neuro CN's II-XII intact bilaterally Lab / Micro Data Attestation: I reviewed the patient's lab results. Result Diagrams: 07/13/22 06:02 07/13/22 06:02 Labs: Laboratory Results - last 24 hr 07/13/22 11:11: POC Glucose 160 H 07/13/22 15:29: POC Glucose 139 H 07/13/22 21:03: POC Glucose 216 H 07/14/22 05:35: POC Glucose 141 H Micro: Microbiology 07/13/22 00:15 Blood Culture (Wb) - Anticubital Right Blood Culture - Preliminary Streptococcus group B Radiology Impression Lower Extremity MRI 07/13/22 04:39 IMPRESSION: Osteomyelitis of the medial sesamoid of the great toe 1. A moderate-sized soft tissue ulcer is present on the plantar aspect of the foot beneath the head of the first metatarsal bone and the sesamoids resulting in mild cortical erosion and reactive sclerosis of the medial sesamoid, in addition to mild contrast enhancement and marrow edema on the inner side of the medial sesamoid which is best seen on image 31/40 series 12, consistent with active osteomyelitis. Cellulitis is present in the ulcerated soft tissues beneath the sesamoids first metatarsal head but no soft tissue abscess is present. The ulcer measures 1.36 cm in diameter. Electronically Signed: Rich Rucker MD at 12:02 EST , ADDENDUM: 07/13/22 1318 IMPRESSION: Osteomyelitis of the medial sesamoid of the great toe 1. A moderate-sized soft tissue ulcer is present on the plantar aspect of the foot beneath the head of the first metatarsal bone and the sesamoids resulting in mild cortical erosion and reactive sclerosis of the medial sesamoid, in addition to mild contrast enhancement and marrow edema on the inner side of the medial sesamoid which is best seen on image 31/40 series 12, consistent with active osteomyelitis. Cellulitis is present in the ulcerated soft tissues beneath the sesamoids first metatarsal head but no soft tissue abscess is present. The ulcer measures 1.36 cm in diameter. N.B. : Coreen Bolanos RN, confirmed on 07/13/2022 13:11:10 (ET) that the healthcare facility has received the radiology report. Electronically Signed: Rich Rucker MD at 12:02 EST ,
[2022-07-14] MEDS: Propranolol 10 MG Tablet 5 MG PO (11:05)
[2022-07-14] MEDS: Insulin Lispro 100 UNIT/ML INSULN.PEN SC ×3 (11:06→21:21)
[2022-07-14] MEDS: oxyCODONE 5 MG Tablet PO ×3 (11:12→19:47)
[2022-07-14] MEDS: Acetaminophen 325 MG Tablet 650 MG PO ×2 (11:12→19:47)
--- NOTE | 2022-07-14 11:23 | WOUNDNOTE ---
Notified Dr Guo that patient did want to have surgery on the left foot after pt talked with .
[2022-07-14 11:37] LABS: Probe Check PASS; Staph aureus DNA By PCR POSITIVE (Negative)
[2022-07-14 11:40] LABS: M R Staph aureus DNA By PCR POSITIVE (Negative)
[2022-07-14] MEDS: Morphine 2 MG/ML Syringe IV ×2 (12:01→22:31)
[2022-07-14] MEDS: 0.9% Saline Lock 10 ML Syringe IV (12:01)
--- NOTE | 2022-07-14 18:37 | PN.HOSP_ITS ---
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 Patient has decided that she would like to have surgery concerning her foot infection and osteomyelitis, will be up to podiatry to plan when the surgery will take place (possibly tomorrow). ID saw the patient today and is managing antibiotic administration. Objective Data Objective Data Vital Signs: Vital Signs Temp Pulse Resp BP Pulse Ox O2 Del Method 98.2 F 66 18 97/59 L 99 Room Air 07/14/22 14:30 07/14/22 14:30 07/14/22 14:30 07/14/22 14:30 07/14/22 14:47 07/14/22 14:47 Oxygen Delivery Method Room Air Weight: 92.986 kg Body Mass Index (BMI) 37.8 Intake & Output: Intake and Output for Last 24 Hours 07/12/22 07/13/22 07/14/22 23:59 23:59 23:59 Intake Total 2360.01 / 2600.01 601 / 601 Output Total 1400 / 1800 1200 / 1200 Balance 960.01 / 800.01 -599 / -599 Lab / Micro Data Result Diagrams: 07/13/22 06:02 07/13/22 06:02 Labs: Laboratory Results - last 24 hr 07/13/22 09:00: S.aureus Protein A PCR POSITIVE H, MRSA (PCR) POSITIVE H 07/13/22 21:03: POC Glucose 216 H 07/14/22 05:35: POC Glucose 141 H Micro: Microbiology 07/13/22 09:00 Wound - Heel, Left Gram Stain - Final 07/13/22 09:00 Wound - Heel, Left Wound Culture - Preliminary Gram positive sue 07/13/22 00:15 Blood Culture (Wb) - Anticubital Right Blood Culture - Preliminary Streptococcus group B Physical Exam Const alert, oriented x3 and no apparent distress General Appearance: cooperative, well kempt and well developed Orientation / Consciousness: awake, oriented to person, oriented to place and oriented to time HEENT normocephalic, head/scalp atraumatic and moist oral mucous membranes Eyes PERRL, EOMs intact bilaterally and conjunctivae normal Neck supple, no JVD and thyroid normal General: trachea midline Resp normal respiratory effort, no retractions, no use of accessory muscles and clear to auscultation bilaterally Auscultation: Negative for rales, rhonchi or wheezes Cardio regular rate, regular rhythm, no murmurs, no rub and no gallops GI normal to inspection, nondistended, normoactive bowel sounds, soft to palpation, non-tender and non-distended GI Narrative: There is a colostomy present as well as a suprapubic catheter Extremity Extremity Narrative: Patient's left foot was not examined today, it is wrapped with surgical dressing Neuro oriented x3, CN's II-XII intact bilaterally and no sensory deficits noted Sensorium / Orientation: awake, alert, oriented to person, oriented to place and oriented to time Speech: speech normal Psych affect normal Assessment & Plan Assessment/Plan (1) Foot osteomyelitis, left: PLAN: Plan 1. Osteomyelitis of the left foot-again patient has agreed to have foot surgery, this will probably be carried out tomorrow, continue present antibiotic coverage per infectious diseases #2 cellulitis of the left foot-again antibiotic coverage per infectious diseases #3 type 2 diabetes-blood sugars will be monitored, sliding scale insulin will be given as needed #4 chronic kidney disease stage III secondary to type 2 diabetes-patient's renal functions will be monitored #5 paroxysmal supraventricular tachycardia-patient takes rate limiting medication at home, this will be continued #6 spina bifida-patient has a suprapubic catheter and colostomy, complicates care, medical course, recovery, and prognosis. Total clinical time spent by myself addressing the patient's medical issues, reviewing all the patient's data, and collaborating with patient's care team: 35 minutes Charges/Coding Visit Charges Inpatient E&M: 95224 Subs Hosp L2
[2022-07-14] MEDS: Insulin Glargine-YFGN 100 UNIT/ML Pen 33 UNIT SC (21:21)
[2022-07-14] MEDS: Atorvastatin Calcium 80 MG Tablet PO (21:22)
[2022-07-15] VITALS (10 sets, daily range): BP systolic 107–138; BP diastolic 54–87; PULSE 57–75; RESP 12–18; TEMP 36.4–36.9; O2SAT 92–100; BMI 38.2
--- NOTE | 2022-07-15 06:00 | EKG12_ITS ---
Test Reason : PRE-OP Blood Pressure : / mmHG Vent. Rate : 059 BPM Atrial Rate : 059 BPM P-R Int : 160 ms QRS Dur : 088 ms QT Int : 456 ms P-R-T Axes : 009 025 014 degrees QTc Int : 451 ms Sinus bradycardia Otherwise normal ECG When compared with ECG of 20-JAN-2022 00:54, Vent. rate has decreased BY 41 BPM Confirmed by YARIEL FITZGERALD, ANUM ([id number]), editor index WILBUR FARRAR ([id number]) on 07/19/2022 11:15:09 AM Referred By: ESTEPHANIA Confirmed By:ANUM SALDIVAR MD
[2022-07-15] MEDS: Insulin Lispro 100 UNIT/ML INSULN.PEN SC (06:04)
[2022-07-15] MEDS: metroNIDAZOLE 500 MG/100 ML BAG 100 MG IV ×3 (06:04→22:02)
[2022-07-15] MEDS: Morphine 2 MG/ML Syringe IV (06:14)
[2022-07-15 06:35] LABS: Internal QC Validated? YES +Cl - CLEAR BKGD; Pregnancy, Urine Negative Negative
[2022-07-15 07:12] LABS: Thyroid Stim Hormone (TSH) 0.33 uIU/mL (0.358-3.74)
--- NOTE | 2022-07-15 08:00 | WOUNDNOTE ---
Pt is going to surgery today for debridement of the left foot per Dr Wing. will leave dressing in place.
[2022-07-15] MEDS: 0.9% Normal Saline 1,000 ML 15 ML IV ×2 (13:45→16:12)
[2022-07-15 14:10] LABS: Bedside Glucose 126 mg/dL (74-106)
[2022-07-15] MEDS: Lidocaine 1% (30 ml sdv) 30 ML Vial (14:22)
--- NOTE | 2022-07-15 14:25 | RAD_ITS ---
CLINICAL HISTORY: WOUNDS Date: 07/15/2022 2:26 PM Date of : 1980 Images assigned to this order were provided in conjunction with a surgical procedure performed in the operating room/procedural suite. Please see operative report for details. Fluoroscopic images: 2 Fluoroscopic time: 0:04 (min: sec) Cumulative dose: 0.3381, mGym2; 0.0201; mGy Intraoperative imaging during wound debridement. There is evidence of deformity and likely resection of the distal 5th metatarsal. No radiopaque foreign bodies noted. Refer to procedural note for complete description. Impressions: 1. Fluoroscopic guidance for surgical planning and confirmation Electronically Signed: Severino Hendrickson MD at 18:58 EST , RAD/Foot 2 Views IMPRESSION: undefined
--- NOTE | 2022-07-15 14:35 | BON_PTH ---
PATIENT: HEBER BAILON LOC: [facility] U#:[id number] AGE/SX: 41/F ROOM: MA316 RE07/13/[address]: Dr. Rigo Encarnacion DO : 1980 BED: 1 DIS: 07/18/2022 SPEC #: [id number] RECD: 07/15/22 16:48 STATUS: KIM REMary #: [id number] EFRAIN: 07/15/22 14:[address]: Nemesio Wing DEPT: SURGICAL PATHOLOGY RECD BY: Mee Alexandre ENTERED: 07/18/22 09:15 SP TYPE: Bone OTHR DR: DO Dr. Will Nguyễn MD Dr. Jeffrey Wunning, DPM DO Dr. Brittani Jacob MD Dr. Robert Leininger, MD Tissues: Tibia, NOS Procedures: Decalcification bone/plaque Surgery Specimen Level III Comments: @ Ordering doctor for DEC edited from to @ by ASHLEY at 07/18/22 1511 @ Ordering doctor for SUIV edited from to @ by ASHLEY at 07/18/22 1511 @ Submitting doctor edited from to @ by RGOOD at 07/18/22 1511 HEADER OPERATION: Foot wound debridement with tibial medial sesamoidectomy PRE-OP DIAGNOSIS: Osteomyelitis left foot TISSUE SUBMITTED: Left foot tibial medial sesamoid bone MICROSCOPIC DIAGNOSIS Left foot tibial medial sesamoid bone, excision: Fragments of bone with reparative and reactive change. No evidence of osteomyelitis. AM:kateryna 07/21/2022 MICROSCOPIC DESCRIPTION Slides are reviewed. GROSS DESCRIPTION Received in fixative is one container labeled with the patient's name and designated tibial medial sesamoid left foot. The specimen consists of an irregular fragment of wilson bone measuring 1.5 x 1.0 x 1.0 cm. The specimen is sectioned and totally submitted in one cassette after decalcification. / AM:kateryna 07/18/2022 TC:5 CPT: 49406, 14087
[2022-07-15] MEDS: Bupivacaine Mpf 0.5% 30 ML VIAL (15:05)
--- NOTE | 2022-07-15 15:19 | OP.PCM_ITS ---
Problems Associated Problem List Diagnoses (1) Foot osteomyelitis, left: (2) Non-pressure chronic ulcer of other part of left foot with fat layer exp osed: (3) Type 2 diabetes mellitus with foot ulcer: (4) Diabetes mellitus with diabetic polyneuropathy: (5) Cellulitis: Report of Operation Date of Procedure: 07/15/22 Pre-Operative Diagnosis: 1) Left foot tibial sesamoid osteomyelitis 2) Left diabetic foot infection 3) chronic ulceration left plantar heel Post-Operative Diagnosis: same Surgery/Procedure Performed:: 1) Left foot sesamoidectomy (medial sesamoid) 2) Left heel wound excisional debridement down to level of subcutaneous tissue Description of Surgical Findings:: Small abscess to plantar left 1st metatarsal head extending to tibial sesamoid Stable plantar heel ulceration Surgeon: Nemesio Wing float tender: None (Parvin Deal DPM PGYI) Type of Anesthesia: General Special Medications: 20cc 0.5% marcaine Specimen's removed: Left foot tissue culture Left tibial sesamoid - culture left tibial sesamoid - pathology Drains: none Estimated Blood Loss (mL): minimal Description of Procedure: Patient presented with a new onset left diabetic foot infection. MRI confirmed osteomyelitis to left tibial sesamoid. Patient wished to proceed with tibial sesamoidectomy today. Patient brought back to the operating room and induced under general anesthesia, well padded left ankle tourniquet applied. All osseous prominences was offloaded to prevent compression neuropraxia. Preoperatively a Pelayo block was performed in a local infiltration block to the left first ray and left plantar heel wound using 20 cc half percent Marcaine plain. Patient left lower extremity scrubbed prepped draped in typical aseptic fashion. Once cleared by anesthesia a linear incision was drawn along the plantar first metatarsal head at the wound site that demonstrates some slight purulent drainage extending down to the level of the tibial sesamoid. This incision was made through the level of epidermis dermis down to the level of tibial sesamoid any bleeders cauterized neurovascular structures identified and protected with blunt retraction. A small abscess wound noted to be drained from the site. Some tissue culture was taken and sent to the back table for microbiology culture. The tibial sesamoid was then identified and transected from its proximal distal medial and lateral attachments and removed atraumatically using Littler's and Anh. The sesamoid was then split in half was sent to pathology and half was sent to microbiology for culture. Site was flushed with copious amounts normal sterile saline tourniquet was let down tourniquet total tourniquet time noted be 22 minutes. Incision was closed with 2-0 Prolene simple interrupted technique. Left plantar heel wound was debrided excisionally down to including level of subcutaneous tissue of all nonviable tissue using #15 blade without incident, predebridement the wound was noted be 3.2 x 1.5 x 0.4 cm, postdebridement wound was noted to be 3.3 x 1.6 x 0.5 cm. There is noted to be significant periwound hyperkeratosis but no acute signs of infection to the site. No evidence of deep probing. Hemostasis was obtained with light compression. Left foot was cleansed. And dressed with Betadine Adaptic 4 x 4's Kerlix and Carlos bandage. Patient procedure and anesthesia well in apparent satisfactory condition and transferred to PACU vital signs stable vascular status intact all digits for further monitoring prior to discharge. Patient tolerated procedure and anesthesia well. Patient will be transferred back to floor await final necrobiotic cultures. Patient will maintain nonweightbearing status to left foot.
[2022-07-15 16:31] LABS: Bedside Glucose 156 mg/dL (74-106)
--- NOTE | 2022-07-15 19:29 | PN.HOSP_ITS ---
Reason for Visit Reason for Visit: Diagnoses Type 2 diabetes mellitus with diabetic polyneuropathy (07/13/22) Type 2 diabetes mellitus with foot ulcer (07/13/22) Type 2 diabetes mellitus with hyperglycemia (07/13/22) Cellulitis of left lower limb (07/13/22) Non-pressure chronic ulcer of left heel and midfoot with fat layer exposed (07/13/22) Non-pressure chronic ulcer of other part of unspecified foot with unspecified se verity (07/13/22) Non-pressure chronic ulcer of other part of left foot with fat layer exposed (07/13/22) Osteomyelitis, unspecified (07/13/22) Chronic kidney disease, unspecified (07/13/22) 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 Objective Data Objective Data Vital Signs: Vital Signs Temp Pulse Resp BP Pulse Ox O2 Del Method 97.9 F 64 16 119/75 99 Room Air 07/15/22 17:15 07/15/22 17:15 07/15/22 17:15 07/15/22 17:15 07/15/22 17:15 07/15/22 17:47 Oxygen Delivery Method Room Air Weight: 91.7 kg Body Mass Index (BMI) 38.2 Intake & Output: Intake and Output for Last 24 Hours 07/13/22 07/14/22 07/15/22 23:59 23:59 23:59 Intake Total 2360.01 / 2600.01 801 / 1001 2111 / 2111 Output Total 1400 / 1800 1200 / 1500 2150 / 2150 Balance 960.01 / 800.01 -399 / -499 -39 / -39 Lab / Micro Data Result Diagrams: 07/13/22 06:02 07/13/22 06:02 Labs: Laboratory Results - last 24 hr 07/13/22 06:02: TSH 0.33 L 07/13/22 09:00: S.aureus Protein A PCR POSITIVE H, MRSA (PCR) POSITIVE H 07/15/22 06:00: Urine Test Negative 07/15/22 13:50: POC Glucose 126 H 07/15/22 16:09: POC Glucose 156 H Micro: Microbiology 07/13/22 09:00 Wound - Heel, Left Gram Stain - Final 07/13/22 09:00 Wound - Heel, Left Wound Culture - Preliminary Gram positive sue Streptococcus agalactiae (B) Staphylococcus species 07/13/22 00:40 Blood Culture (Wb) - Right Forearm Blood Culture - Preliminary No growth in 48 hours. 07/13/22 00:15 Blood Culture (Wb) - Anticubital Right Blood Culture - Final Streptococcus agalactiae (B) Radiography Diagnostic Testing: Radiology Impression Foot X-Ray 07/15/22 14:25 IMPRESSION: undefined Physical Exam Narrative alert, oriented x3 and no apparent distress General Appearance: cooperative, well kempt and well developed Orientation / Consciousness: awake, oriented to person, oriented to place and oriented to time HEENT normocephalic, head/scalp atraumatic and moist oral mucous membranes Eyes PERRL, EOMs intact bilaterally and conjunctivae normal Neck supple, no JVD and thyroid normal General: trachea midline Resp normal respiratory effort, no retractions, no use of accessory muscles and clear to auscultation bilaterally Auscultation: Negative for rales, rhonchi or wheezes Cardio regular rate, regular rhythm, no murmurs, no rub and no gallops GI normal to inspection, nondistended, normoactive bowel sounds, soft to palpation, non-tender and non-distended GI Narrative: There is a colostomy present as well as a suprapubic catheter Extremity Extremity Narrative: Patient's left foot was not examined today, it is wrapped with surgical dressing Neuro oriented x3, CN's II-XII intact bilaterally and no sensory deficits noted Sensorium / Orientation: awake, alert, oriented to person, oriented to place and oriented to time Speech: speech normal Psych affect normal Assessment & Plan Assessment/Plan (1) Foot osteomyelitis, left: PLAN: Plan 1. Osteomyelitis of the left foot-patient was to undergo surgery today by podiatry #2 cellulitis of the left foot-again antibiotic coverage per infectious diseases #3 type 2 diabetes-blood sugars will be monitored, sliding scale insulin will be given as needed #4 chronic kidney disease stage III secondary to type 2 diabetes-patient's renal functions will be monitored #5 paroxysmal supraventricular tachycardia-patient takes rate limiting medication at home, this will be continued #6 spina bifida-patient has a suprapubic catheter and colostomy, complicates care, medical course, recovery, and prognosis. Total clinical time spent by myself addressing the patient's medical issues, reviewing all the patient's data, and collaborating with patient's care team: 35 minutes Charges/Coding Visit Charges Inpatient E&M: 21934 Subs Hosp L2
[2022-07-15] MEDS: Propranolol 10 MG Tablet 5 MG PO (22:03)
[2022-07-15] MEDS: Atorvastatin Calcium 80 MG Tablet PO (22:07)
[2022-07-16 01:34] VITALS: BP 103/70; PULSE 60; RESP 17; TEMP 37.2; O2SAT 98
[2022-07-16] MEDS: Morphine 2 MG/ML Syringe IV ×2 (01:38→20:59)
[2022-07-16] MEDS: metroNIDAZOLE 500 MG/100 ML BAG 100 MG IV ×3 (05:13→21:50)
[2022-07-16 05:14] VITALS: BP 101/65; PULSE 58; RESP 17; TEMP 36.6; O2SAT 98
[2022-07-16 05:23] LABS: ALB/GLOB Ratio 0.7 RATIO (0.9-2.4); AST(SGOT) 28 U/L (15-37); Alanine Aminotransfer ALT/SGPT 35 U/L (13-56); Albumin, Serum 2.8 g/dL (3.2-5.0); Alkaline Phosphatase 70 U/L (45-117); Anion Gap 5 (5-15); BUN 10 mg/dL (7-18); BUN/Creat Ratio 12.7 RATIO (10-20); CPK Total, Creatine Kinase 25 U/L (26-192); Calcium,Total 8.9 mg/dL (8.5-10.1); Chloride 108 mmol/L (98-107); Creatinine, Serum 0.79 mg/dL (0.55-1.02); EST Glomerular Filtration Rate 86 mL/min (>60); Est Glom Filt Rate - Afr Amer 104 mL/min (>60); Estimated Creatinine Clearance 71.43 ml/min; Globulin 4.3 g/dL (2.2-4.2); Glucose 100 mg/dL (74-106); Potassium 3.6 mmol/L (3.5-5.1); Protein, Total 7.1 g/dL (6.4-8.2); Sodium Level 139 mmol/L (136-145)
[2022-07-16] MEDS: Acetaminophen 325 MG Tablet 650 MG PO ×2 (08:32→19:40)
[2022-07-16] MEDS: Tolterodine Tartrate 4 MG CAP.SA PO (08:32)
[2022-07-16] MEDS: oxyCODONE 5 MG Tablet PO ×2 (08:32→19:40)
[2022-07-16] MEDS: Propranolol 10 MG Tablet 5 MG PO (08:32)
[2022-07-16 08:44] VITALS: BP 114/70; PULSE 61; RESP 16; TEMP 36.6; O2SAT 100
--- NOTE | 2022-07-16 10:43 | PCM.PROGNOTE ---
Subjective Subjective Patient seen resting comfortably bedside, mild pain - controlled. Denies constitutional symptoms. Denies chest pain, calf pain, shortness of breath. No other complaints. Objective Data Objective Data Vital Signs: Vital Signs Temp Pulse Resp BP Pulse Ox O2 Del Method 97.9 F 61 16 114/70 100 Room Air 07/16/22 08:44 07/16/22 08:44 07/16/22 08:44 07/16/22 08:44 07/16/22 08:44 07/16/22 08:44 Oxygen Delivery Method Room Air Weight: 93.2 kg Body Mass Index (BMI) 38.2 Intake & Output: Intake and Output for Last 24 Hours 07/14/22 07/15/22 07/16/22 23:59 23:59 23:59 Intake Total 801 / 1001 2551 / 2551 701 / 701 Output Total 1200 / 1500 2850 / 2850 500 / 500 Balance -399 / -499 -299 / -299 201 / 201 Lab / Micro Data Result Diagrams: 07/13/22 06:02 07/16/22 04:20 Labs: Laboratory Results - last 24 hr 07/13/22 09:00: S.aureus Protein A PCR POSITIVE H, MRSA (PCR) POSITIVE H 07/15/22 13:50: POC Glucose 126 H 07/15/22 16:09: POC Glucose 156 H 07/16/22 04:20: Sodium 139, Potassium 3.6, Chloride 108 H, Carbon Dioxide 26.0, Anion Gap 5, BUN 10, Creatinine 0.79, Estim Creat Clear Calc 71.43, Est GFR (MDRD) Af Amer 104, Est GFR (MDRD) Non-Af 86, BUN/Creatinine Ratio 12.7, Glucose 100, Calcium 8.9, Total Bilirubin 0.30, AST 28, ALT 35, Alkaline Phosphatase 70, Total Creatine Kinase 25 L, Total Protein 7.1, Albumin 2.8 L, Globulin 4.3 H, Albumin/Globulin Ratio 0.7 L Micro: Microbiology 07/14/22 15:15 Bone - Left Foot Wound Culture - Preliminary No growth-Final to follow 07/13/22 09:00 Wound - Heel, Left Gram Stain - Final 07/13/22 09:00 Wound - Heel, Left Wound Culture - Preliminary Gram positive sue Streptococcus agalactiae (B) Staphylococcus simulans 07/13/22 00:40 Blood Culture (Wb) - Right Forearm Blood Culture - Preliminary No growth in 48 hours. 07/13/22 00:15 Blood Culture (Wb) - Anticubital Right Blood Culture - Final Streptococcus agalactiae (B) Radiography Diagnostic Testing: Radiology Impression Foot X-Ray 07/15/22 14:25 IMPRESSION: undefined Physical Exam Narrative neurovascular status intact Incision to plantar left foot well approximated with intact sutures, resolving edema/erythema. Stable granular base to plantar left heel wound. No acute signs of infection. no evidence of DVT. Assessment & Plan Assessment/Plan (1) Non-pressure chronic ulcer of other part of left foot with fat layer exposed: PLAN: Exam patient 1 day post op awaiting final cultures and sensitivity, patient can likely d/c on PO abx as I feel infected tissue was adequately removed with surgery betadine paint, adaptic, DSD, richard wrap dressing applied maintain NWB status left side, will need DVT prophylaxis on discharge. Patient has wheel chair and walker at home. will follow up with patient tomorrow. (2) Foot osteomyelitis, left: (3) Type 2 diabetes mellitus with foot ulcer:
[2022-07-16] MEDS: Insulin Lispro 100 UNIT/ML INSULN.PEN SC ×2 (11:00→21:06)
[2022-07-16 11:02] VITALS: BP 101/62; PULSE 68; RESP 16; TEMP 36.6; O2SAT 100
--- NOTE | 2022-07-16 11:04 | NURSING ---
blood sugar 234
--- NOTE | 2022-07-16 14:44 | PCM.PN.HOSP ---
Reason for Visit Reason for Visit: Diagnoses Type 2 diabetes mellitus with diabetic polyneuropathy (07/13/22) Type 2 diabetes mellitus with foot ulcer (07/13/22) Type 2 diabetes mellitus with hyperglycemia (07/13/22) Cellulitis of left lower limb (07/13/22) Non-pressure chronic ulcer of left heel and midfoot with fat layer exposed (07/13/22) Non-pressure chronic ulcer of other part of unspecified foot with unspecified severity (07/13/22) Non-pressure chronic ulcer of other part of left foot with fat layer exposed (07/13/22) Osteomyelitis, unspecified (07/13/22) Chronic kidney disease, unspecified (07/13/22) long-term (current) use of insulin (07/13/22) Subjective Subjective Was seen and examined today, I talked to podiatry about her care. Patient grew out a methicillin resistant staph from her wound, she is currently on antibiotics per infectious diseases. Objective Data Objective Data Vital Signs: Vital Signs Temp Pulse Resp BP Pulse Ox O2 Del Method 97.9 F 68 16 101/62 100 Room Air 07/16/22 11:02 07/16/22 11:02 07/16/22 11:02 07/16/22 11:02 07/16/22 11:02 07/16/22 11:02 Oxygen Delivery Method Room Air Weight: 93.2 kg Body Mass Index (BMI) 38.2 Intake & Output: Intake and Output for Last 24 Hours 07/14/22 07/15/22 07/16/22 23:59 23:59 23:59 Intake Total 801 / 1001 2551 / 2551 1369.75 / 1369.75 Output Total 1200 / 1500 2850 / 2850 800 / 800 Balance -399 / -499 -299 / -299 569.75 / 569.75 Lab / Micro Data Result Diagrams: 07/13/22 06:02 07/16/22 04:20 Labs: Laboratory Results - last 24 hr 07/13/22 09:00: S.aureus Protein A PCR POSITIVE H, MRSA (PCR) POSITIVE H 07/15/22 16:09: POC Glucose 156 H 07/16/22 04:20: Sodium 139, Potassium 3.6, Chloride 108 H, Carbon Dioxide 26.0, Anion Gap 5, BUN 10, Creatinine 0.79, Estim Creat Clear Calc 71.43, Est GFR (MDRD) Af Amer 104, Est GFR (MDRD) Non-Af 86, BUN/Creatinine Ratio 12.7, Glucose 100, Calcium 8.9, Total Bilirubin 0.30, AST 28, ALT 35, Alkaline Phosphatase 70, Total Creatine Kinase 25 L, Total Protein 7.1, Albumin 2.8 L, Globulin 4.3 H, Albumin/Globulin Ratio 0.7 L Micro: Microbiology 07/14/22 15:15 Bone - Left Foot Gram Stain - Final 07/14/22 15:15 Bone - Left Foot Wound Culture - Preliminary No growth-Final to follow 07/15/22 15:23 Tissue - Left Foot Gram Stain - Final 07/13/22 09:00 Wound - Heel, Left Gram Stain - Final 07/13/22 09:00 Wound - Heel, Left Wound Culture - Preliminary Gram positive sue Streptococcus agalactiae (B) Staphylococcus simulans 07/13/22 00:40 Blood Culture (Wb) - Right Forearm Blood Culture - Preliminary No growth in 48 hours. 07/13/22 00:15 Blood Culture (Wb) - Anticubital Right Blood Culture - Final Streptococcus agalactiae (B) Radiography Diagnostic Testing: Radiology Impression Foot X-Ray 07/15/22 14:25 IMPRESSION: undefined Physical Exam Narrative alert, oriented x3 and no apparent distress General Appearance: cooperative, well kempt and well developed Orientation / Consciousness: awake, oriented to person, oriented to place and oriented to time HEENT normocephalic, head/scalp atraumatic and moist oral mucous membranes Eyes PERRL, EOMs intact bilaterally and conjunctivae normal Neck supple, no JVD and thyroid normal General: trachea midline Resp normal respiratory effort, no retractions, no use of accessory muscles and clear to auscultation bilaterally Auscultation: Negative for rales, rhonchi or wheezes Cardio regular rate, regular rhythm, no murmurs, no rub and no gallops GI normal to inspection, nondistended, normoactive bowel sounds, soft to palpation, non-tender and non-distended GI Narrative: There is a colostomy present as well as a suprapubic catheter Extremity Extremity Narrative: Patient's left foot was not examined today, it is wrapped with surgical dressing Neuro oriented x3, CN's II-XII intact bilaterally and no sensory deficits noted Sensorium / Orientation: awake, alert, oriented to person, oriented to place and oriented to time Speech: speech normal Psych affect normal Assessment & Plan Assessment/Plan (1) Foot osteomyelitis, left: PLAN: Plan 1. Osteomyelitis of the left foot-postop day #1 removal of sesamoid bone left foot, continue present antibiotics per infectious diseases #2 cellulitis of the left foot-again antibiotic coverage per infectious diseases #3 type 2 diabetes-blood sugars will be monitored, sliding scale insulin will be given as needed #4 chronic kidney disease stage III secondary to type 2 diabetes-patient's renal functions will be monitored as needed, patient's creatinine today was 0.79 #5 paroxysmal supraventricular tachycardia-patient takes rate limiting medication at home, this will be continued #6 spina bifida-patient has a suprapubic catheter and colostomy, complicates care, medical course, recovery, and prognosis. Total clinical time spent by myself addressing the patient's medical issues, reviewing all the patient's data, and collaborating with patient's care team: 36 minutes Charges/Coding Visit Charges Inpatient E&M: 91429 Subs Hosp L2
[2022-07-16 14:46] VITALS: BP 105/62; PULSE 72; RESP 16; TEMP 36.4; O2SAT 97
--- NOTE | 2022-07-16 16:20 | NURSING ---
pt blood sugar 188. refused insulin at this time
[2022-07-16 19:30] VITALS: BP 114/69; PULSE 67; RESP 16; TEMP 36.7; O2SAT 99
[2022-07-16] MEDS: 0.9% Saline Lock 10 ML Syringe IV (21:04)
[2022-07-16] MEDS: Atorvastatin Calcium 80 MG Tablet PO (21:05)
[2022-07-16] MEDS: Insulin Glargine-YFGN 100 UNIT/ML Pen 33 UNIT SC (21:05)
[2022-07-17] MEDS: Morphine 2 MG/ML Syringe IV ×2 (00:07→14:35)
[2022-07-17 02:15] VITALS: BP 109/73; PULSE 66; RESP 16; TEMP 36.7; O2SAT 100
[2022-07-17] MEDS: Acetaminophen 325 MG Tablet 650 MG PO ×2 (02:22→22:32)
[2022-07-17] MEDS: oxyCODONE 5 MG Tablet PO ×3 (02:22→22:32)
[2022-07-17] MEDS: metroNIDAZOLE 500 MG/100 ML BAG 100 MG IV ×3 (06:47→23:40)
--- NOTE | 2022-07-17 06:49 | NURSING ---
pt blood sugar via freestyle meter is 116 at this time
--- NOTE | 2022-07-17 07:26 | PN_ITS ---
Subjective Subjective Patient seen resting comfortably bedside, mild pain - controlled. Denies constitutional symptoms. Denies chest pain, calf pain, shortness of breath. No other complaints. Objective Data Objective Data Vital Signs: Vital Signs Temp Pulse Resp BP Pulse Ox O2 Del Method 98.1 F 66 16 109/73 100 Room Air 07/17/22 02:15 07/17/22 02:15 07/17/22 02:15 07/17/22 02:15 07/17/22 02:15 07/17/22 02:15 Oxygen Delivery Method Room Air Weight: 93.077 kg Body Mass Index (BMI) 38.2 Intake & Output: Intake and Output for Last 24 Hours 07/15/22 07/16/22 07/17/22 23:59 23:59 23:59 Intake Total 2551 / 2551 2183.00 / 2683.00 1207 / 1207 Output Total 2850 / 2850 1150 / 1550 850 / 850 Balance -299 / -299 1033.00 / 1133.00 357 / 357 Lab / Micro Data Result Diagrams: 07/13/22 06:02 07/16/22 04:20 Micro: Microbiology 07/13/22 09:00 Wound - Heel, Left Gram Stain - Final 07/13/22 09:00 Wound - Heel, Left Wound Culture - Preliminary Gram positive sue Streptococcus agalactiae (B) Staphylococcus simulans 07/14/22 15:15 Bone - Left Foot Gram Stain - Final 07/14/22 15:15 Bone - Left Foot Wound Culture - Preliminary No growth-Final to follow 07/15/22 15:23 Tissue - Left Foot Gram Stain - Final 07/13/22 00:40 Blood Culture (Wb) - Right Forearm Blood Culture - Preliminary No growth in 48 hours. 07/13/22 00:15 Blood Culture (Wb) - Anticubital Right Blood Culture - Final Streptococcus agalactiae (B) Physical Exam Narrative dressing left clean, dry and intact to left foot. no evidence of DVT. 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 Patient has wheel chair and walker at home. upon d/c patient will keep dressing clean, dry and intact and will follow up in 1 week. (2) Foot osteomyelitis, left: (3) Type 2 diabetes mellitus with foot ulcer:
[2022-07-17] MEDS: Tolterodine Tartrate 4 MG CAP.SA PO (08:49)
[2022-07-17] MEDS: Propranolol 10 MG Tablet 5 MG PO ×2 (08:50→22:25)
[2022-07-17 08:59] VITALS: BP 111/78; PULSE 63; RESP 16; TEMP 36.4; O2SAT 100
[2022-07-17 11:08] VITALS: BP 96/59; PULSE 76; RESP 16; TEMP 36.4; O2SAT 99
--- NOTE | 2022-07-17 11:08 | NURSING ---
blood sugar 196. pt refused insulin at this itme.
[2022-07-17 14:52] VITALS: BP 115/66; PULSE 65; RESP 16; TEMP 36.6; O2SAT 100
--- NOTE | 2022-07-17 15:54 | NURSING ---
blood sugar 170 pt refused insulin at this
--- NOTE | 2022-07-17 17:57 | PN.HOSP_ITS ---
Reason for Visit Reason for Visit: Diagnoses Type 2 diabetes mellitus with diabetic polyneuropathy (07/13/22) Type 2 diabetes mellitus with foot ulcer (07/13/22) Type 2 diabetes mellitus with hyperglycemia (07/13/22) Cellulitis of left lower limb (07/13/22) Non-pressure chronic ulcer of left heel and midfoot with fat layer exposed (07/13/22) Non-pressure chronic ulcer of other part of unspecified foot with unspecified se verity (07/13/22) Non-pressure chronic ulcer of other part of left foot with fat layer exposed (07/13/22) Osteomyelitis, unspecified (07/13/22) Chronic kidney disease, unspecified (07/13/22) nursing home (current) use of insulin (07/13/22) Subjective Subjective Patient was seen and examined today, I briefly discussed her care with infectious diseases, patient has a methicillin-resistant staph species on one of her cultures. Infectious diseases will see the patient tomorrow to decide whether she needs to go home on IV versus oral antibiotics. Objective Data Objective Data Vital Signs: Vital Signs Temp Pulse Resp BP Pulse Ox O2 Del Method 97.9 F 65 16 115/66 100 Room Air 07/17/22 14:52 07/17/22 14:52 07/17/22 14:52 07/17/22 14:52 07/17/22 14:52 07/17/22 14:52 Oxygen Delivery Method Room Air Weight: 93.077 kg Body Mass Index (BMI) 38.2 Intake & Output: Intake and Output for Last 24 Hours 07/15/22 07/16/22 07/17/22 23:59 23:59 23:59 Intake Total 2551 / 2551 2183.00 / 2683.00 2303.25 / 2303.25 Output Total 2850 / 2850 1150 / 1550 1550 / 1550 Balance -299 / -299 1033.00 / 1133.00 753.25 / 753.25 Lab / Micro Data Result Diagrams: 07/13/22 06:02 07/16/22 04:20 Micro: Microbiology 07/15/22 15:23 Tissue - Left Foot Gram Stain - Final 07/15/22 15:23 Tissue - Left Foot Wound Culture - Preliminary Staphylococcus species 07/15/22 15:23 Tissue - Left Foot Anaerobic Culture - Preliminary 07/13/22 09:00 Wound - Heel, Left Gram Stain - Final 07/13/22 09:00 Wound - Heel, Left Wound Culture - Final Gram positive sue Streptococcus agalactiae (B) Staphylococcus simulans 07/14/22 15:15 Bone - Left Foot Gram Stain - Final 07/14/22 15:15 Bone - Left Foot Wound Culture - Preliminary Staphylococcus species 07/13/22 00:40 Blood Culture (Wb) - Right Forearm Blood Culture - Preliminary No growth in 48 hours. 07/13/22 00:15 Blood Culture (Wb) - Anticubital Right Blood Culture - Final Streptococcus agalactiae (B) Physical Exam Narrative alert, oriented x3 and no apparent distress General Appearance: cooperative, well kempt and well developed Orientation / Consciousness: awake, oriented to person, oriented to place and oriented to time HEENT normocephalic, head/scalp atraumatic and moist oral mucous membranes Eyes PERRL, EOMs intact bilaterally and conjunctivae normal Neck supple, no JVD and thyroid normal General: trachea midline Resp normal respiratory effort, no retractions, no use of accessory muscles and clear to auscultation bilaterally Auscultation: Negative for rales, rhonchi or wheezes Cardio regular rate, regular rhythm, no murmurs, no rub and no gallops GI normal to inspection, nondistended, normoactive bowel sounds, soft to palpation, non-tender and non-distended GI Narrative: There is a colostomy present as well as a suprapubic catheter Extremity Extremity Narrative: Patient's left foot was not examined today, it is wrapped with surgical dressing Neuro oriented x3, CN's II-XII intact bilaterally and no sensory deficits noted Sensorium / Orientation: awake, alert, oriented to person, oriented to place and oriented to time Speech: speech normal Psych affect normal Assessment & Plan Assessment/Plan (1) Foot osteomyelitis, left: PLAN: Plan 1. Osteomyelitis of the left foot-postop day #2 removal of sesamoid bone left foot, continue present antibiotics per infectious diseases, it is unknown whether the patient will have to be discharged home on IV versus oral antibiotics, I had talked with podiatry yesterday and they felt that the patient's sesamoid bone did not appear to be grossly infected at the time it was removed. #2 cellulitis of the left foot-again antibiotic coverage per infectious diseases, patient IV versus oral antibiotics will be decided by infectious diseases #3 type 2 diabetes-blood sugars will be monitored, sliding scale insulin will be given as needed #4 chronic kidney disease stage III secondary to type 2 diabetes-patient's renal functions will be monitored as needed #5 paroxysmal supraventricular tachycardia-patient takes rate limiting medication at home, this will be continued #6 spina bifida-patient has a suprapubic catheter and colostomy, complicates care, medical course, recovery, and prognosis. Total clinical time spent by myself addressing the patient's medical issues, reviewing all the patient's data, and collaborating with patient's care team: 35 minutes Charges/Coding Visit Charges Inpatient E&M: 42047 Subs Hosp L2
[2022-07-17 22:17] VITALS: BP 125/68; PULSE 66; RESP 18; TEMP 36.7; O2SAT 98
[2022-07-17] MEDS: Insulin Lispro 100 UNIT/ML INSULN.PEN SC (22:23)
[2022-07-17] MEDS: Insulin Glargine-YFGN 100 UNIT/ML Pen 33 UNIT SC (22:24)
[2022-07-17] MEDS: Atorvastatin Calcium 80 MG Tablet PO (22:25)
[2022-07-18 04:58] VITALS: BP 125/74; PULSE 54; RESP 18; TEMP 36.3; O2SAT 99
[2022-07-18] MEDS: metroNIDAZOLE 500 MG/100 ML BAG 100 MG IV (06:19)
--- NOTE | 2022-07-18 07:34 | PN_ITS ---
Subjective Subjective PAtient 3 days post op. Denies constitutionals or pain today. No other complaints. Objective Data Objective Data Vital Signs: Vital Signs Temp Pulse Resp BP Pulse Ox O2 Del Method 97.3 F L 54 L 18 125/74 H 99 Room Air 07/18/22 04:58 07/18/22 04:58 07/18/22 04:58 07/18/22 04:58 07/18/22 04:58 07/18/22 04:58 Oxygen Delivery Method Room Air Weight: 93.7 kg Body Mass Index (BMI) 38.2 Intake & Output: Intake and Output for Last 24 Hours 07/16/22 07/17/22 07/18/22 23:59 23:59 23:59 Intake Total 2183.00 / 2683.00 2403.25 / 2403.25 200 / 200 Output Total 1150 / 1550 1550 / 1850 300 / 300 Balance 1033.00 / 1133.00 853.25 / 553.25 -100 / -100 Lab / Micro Data Result Diagrams: 07/13/22 06:02 07/16/22 04:20 Micro: Microbiology 07/15/22 15:23 Tissue - Left Foot Gram Stain - Final 07/15/22 15:23 Tissue - Left Foot Wound Culture - Preliminary Enterococcus faecalis Enterobacter cloacae complex 07/14/22 15:15 Bone - Left Foot Gram Stain - Final 07/14/22 15:15 Bone - Left Foot Wound Culture - Preliminary Staphylococcus simulans 07/13/22 09:00 Wound - Heel, Left Gram Stain - Final 07/13/22 09:00 Wound - Heel, Left Wound Culture - Final Gram positive sue Streptococcus agalactiae (B) Staphylococcus simulans 07/13/22 00:40 Blood Culture (Wb) - Right Forearm Blood Culture - Preliminary No growth in 48 hours. 07/13/22 00:15 Blood Culture (Wb) - Anticubital Right Blood Culture - Final Streptococcus agalactiae (B) Physical Exam Narrative dressing left clean, dry and intact to left foot. no evidence of DVT. Const alert, oriented x3 and no apparent distress Constitutional Narrative: Left foot ulcer sub 1st met head s/p debridement with healthy viable tissues down to subcutaneous tissue, left heel ulceration s/p debridement with healthy and viable tissues, down to subcutaneous tissue. Cellulitis left foot signif icantly improved. There is no pain to the left foot at this time, there is chronic peripheral neuropathy and diffuse weakness which is chronic. Vascular status intact bilateral foot. No open lesions right foot. Assessment & Plan Assessment/Plan (1) Non-pressure chronic ulcer of other part of left foot with fat layer exposed: PLAN: Exam performed patient 3 days post op Tibial sesamoid and tissue cultures growing staphyloccus species, awaiting final ID recs. I feel confident that infected tissue was removed with surgical debridement maintain NWB status left side, will need DVT prophylaxis on discharge. Patient has wheel chair and walker at home. upon d/c patient will keep dressing clean, dry and intact and will follow up in 1 week. (2) Foot osteomyelitis, left: (3) Type 2 diabetes mellitus with foot ulcer:
--- NOTE | 2022-07-18 07:48 | NURSING ---
blood glucose 90 at this time
[2022-07-18 07:53] VITALS: BP 112/77; PULSE 55; RESP 16; TEMP 36.4; O2SAT 100
[2022-07-18] MEDS: Acetaminophen 325 MG Tablet 650 MG PO (08:00)
[2022-07-18] MEDS: oxyCODONE 5 MG Tablet PO (08:01)
--- NOTE | 2022-07-18 08:40 | PCM.PN.HOSP ---
Reason for Visit Reason for Visit: Diagnoses Type 2 diabetes mellitus with diabetic polyneuropathy (07/13/22) Type 2 diabetes mellitus with foot ulcer (07/13/22) Type 2 diabetes mellitus with hyperglycemia (07/13/22) Cellulitis of left lower limb (07/13/22) Non-pressure chronic ulcer of left heel and midfoot with fat layer exposed (07/13/22) Non-pressure chronic ulcer of other part of unspecified foot with unspecified severity (07/13/22) Non-pressure chronic ulcer of other part of left foot with fat layer exposed (07/13/22) Osteomyelitis, unspecified (07/13/22) Chronic kidney disease, unspecified (07/13/22) [facility] (current) use of insulin (07/13/22) Subjective Subjective Feels well. Denies any current complaints. States that she has chronic paresthesias and neuropathy in her lower extremities but only feels it when pain is very severe. Objective Data Objective Data Vital Signs: Vital Signs Temp Pulse Resp BP Pulse Ox O2 Del Method 36.4 C L 55 L 16 112/77 100 Room Air 07/18/22 07:53 07/18/22 07:53 07/18/22 07:53 07/18/22 07:53 07/18/22 07:53 07/18/22 07:54 Oxygen Delivery Method Room Air Weight: 93.7 kg Body Mass Index (BMI) 38.2 Intake & Output: Intake and Output for Last 24 Hours 07/16/22 07/17/22 07/18/22 23:59 23:59 23:59 Intake Total 2183.00 / 2683.00 2403.25 / 2403.25 300 / 300 Output Total 1150 / 1550 1550 / 1850 300 / 300 Balance 1033.00 / 1133.00 853.25 / 553.25 0 / 0 Lab / Micro Data Result Diagrams: 07/13/22 06:02 07/16/22 04:20 Micro: Microbiology 07/15/22 15:23 Tissue - Left Foot Gram Stain - Final 07/15/22 15:23 Tissue - Left Foot Wound Culture - Preliminary Enterococcus faecalis Enterobacter cloacae complex 07/14/22 15:15 Bone - Left Foot Gram Stain - Final 07/14/22 15:15 Bone - Left Foot Wound Culture - Preliminary Staphylococcus simulans 07/13/22 09:00 Wound - Heel, Left Gram Stain - Final 07/13/22 09:00 Wound - Heel, Left Wound Culture - Final Gram positive sue Streptococcus agalactiae (B) Staphylococcus simulans 07/13/22 00:40 Blood Culture (Wb) - Right Forearm Blood Culture - Preliminary No growth in 48 hours. 07/13/22 00:15 Blood Culture (Wb) - Anticubital Right Blood Culture - Final Streptococcus agalactiae (B) Physical Exam Const alert and no apparent distress HEENT head/scalp atraumatic Resp normal respiratory effort, no retractions, no use of accessory muscles and clear to auscultation bilaterally Cardio regular rate, regular rhythm, S1 normal heart sound and S2 normal heart sound GI normal to inspection, nondistended, normoactive bowel sounds, soft to palpation, non-tender and non-distended Extremity normal to inspection Neuro oriented x3 and CN's II-XII intact bilaterally Assessment & Plan Assessment/Plan (1) Foot osteomyelitis, left: PLAN: Osteomyelitis of the left tibial sesamoid tibial sesamoidectomy 07/15 wounds have been polymicrobial: S. smulans, group B strep, enterococcus faecalis, enterobacter cloacae on daptomycin and cefepime since 07/14 ID following: Recommending 1 more week of oral linezolid, Bactrim and metronidazole. Follow-up with podiatry Per podiatry: Nonweightbearing the left lower extremity. Will require VTE prophylaxis upon discharge. Dressing will be clean dressing dry and intact and will follow-up in 1 week. (2) Cellulitis of left lower limb: PLAN: treatment as above PLAN: Plan Chronic conditions: type 2 diabetes-blood sugars will be monitored, sliding scale insulin will be given as needed chronic kidney disease stage III secondary to type 2 diabetes-patient's renal functions will be monitored as needed paroxysmal supraventricular tachycardia-patient takes rate limiting medication at home, this will be continued spina bifida-patient has a suprapubic catheter and colostomy, complicates care, medical course, recovery, and prognosis. VTE prophylaxis: SCDs
[2022-07-18] MEDS: Tolterodine Tartrate 4 MG CAP.SA PO (10:38)
[2022-07-18] MEDS: Propranolol 10 MG Tablet 5 MG PO (10:38)
--- NOTE | 2022-07-18 10:42 | WOUNDNOTE ---
wound photo: left foot
--- NOTE | 2022-07-18 12:46 | CASEMGMT ---
Addendum entered by Sienna Rodrigues 07/18/22 14:06: RN CM in to pt room, pt denies any homegoing needs. to continue to provide care for pt. Original Note: Spoke with ID, pt ordered po atb to go home on. TC to [facility], spoke with mendoza Chen cost for linezolid is $1.45.
--- NOTE | 2022-07-18 13:15 | PCM.PN.ID ---
Physical Exam Narrative Feeling ok, no fever, no pain in foot, no n/v/d. Const alert and no apparent distress Resp normal air movement and clear to auscultation bilaterally Cardio regular rate and regular rhythm GI soft to palpation, non-tender and non-distended Skin Skin Narrative: foot wrapped ID ID: Route of nutrition/ use of supplements: [] Nutritional Intake: [] IV Site: [] Morales Catheter: [] Assessment & Plan Assessment/Plan (1) Diabetes mellitus with diabetic polyneuropathy: (2) Foot osteomyelitis, left: PLAN: Wound cx with enterococcus, enterobcater, CoNS, GBS, GPR. 07/15 had surgical I&D. Has tolerated cefepime and augmentin in the past. On dapto/cefepime/flagyl for now. Sesamoid bone removed, abscess drained, no other bone involvement seen. Ok for home with one more week po linezolid, bactrim, and flagyl with close podiatry followup. Will follow
--- NOTE | 2022-07-18 13:49 | PCM.DC ---
Discharge Instructions Diet Discharge Diet: No restrictions Activity Discharge Activity: Return to Normal Activity Weight Bearing Status: No weight bearing Keep extremity elevated above heart level: Left Leg Dressing / Incision Call your doctor if your incision/area has: Sudden Increased Bleeding, Increased Pain/ Swelling, Increased Redness, Foul Smelling Discharge and Swelling at the incision site Call your doctor if you observe: Fever of 101 or Higher Change Dressing in: 1 day Cleanse incision/area with: Keep Dressing Clean & Dry Follow Up Care Test Results: Test results from this visit will be discussed in further detail at your follow-up appointment, if applicable. Discharge Plan Admission Admit Date/Time: 07/13/22 03:38 Primary Reason for Your Visit: left leg osteomyelitis and cellulitis Attending Provider: Rigo Encarnacion Primary Care Provider: Will Shukla Consulting Providers: Brittani Panda ; Alpesh Alex ; Will Guo ; Jhony Boyer Instructions Additional Instructions / Restrictions: follow up in 1 week Discharge Orders/Prescriptions Prescriptions: New enoxaparin 40 mg/0.4 mL syringe 40 mg subcut DAILY Qty: 12 0RF metronidazole 500 mg tablet 500 mg PO TID Qty: 20 0RF linezolid 600 mg tablet 600 mg PO Q12H Qty: 14 0RF sulfamethoxazole-trimethoprim [Bactrim DS] 800-160 mg tablet 1 tab PO BID 7 Days Qty: 14 0RF oxycodone 5 mg Tablet 5 mg PO Q4H PRN PRN (Reason: Pain Score 4-10) 3 Days Qty: 12 0RF Continued insulin aspart (niacinamide) 100 unit/mL (3 mL) insulin pen 0 - 100 ml subcut PRN PRN (Reason: Hyperglycemia) Label Comments: Inject 8-18 Units subcutaneously three times daily before meals. (Includes SS # 2 QAC -> Pt. aware of details.) MAX TDD = 55 UNITS / DAY. E1 Rx Instructions: 15 PLUS SLIDING SCALE. atorvastatin 80 mg tablet 80 mg PO DAILY Label Comments: Take 1 tablet by mouth once daily. (DME) pen needle, diabetic [BD Ultra-Fine Hope Pen Needle] 32 gauge x 5/32 needle See Rx Instructions .ROUTE .MEDSUPPLY Qty: 400 6RF Rx Instructions: 4x/day furosemide 20 MG tablet 20 mg PO 2200 Hold Instructions: Resume on 11/24/21. Rx Instructions: 20 mg in the evening furosemide 40 MG tablet 40 mg PO BREAKFAST Hold Instructions: Resume on 11/24/21. oxybutynin chloride 15 mg tablet extended release 24hr 15 mg PO DAILY acetaminophen 500 MG tablet 1,000 mg PO TID PRN PRN (Reason: Pain Or Fever) trazodone 100 mg tablet 100 mg PO QHS Label Comments: Take 1 tablet by mouth daily at bedtime. phenazopyridine [Pyridium] 200 MG tablet 200 mg PO BID PRN PRN (Reason: Pain) glimepiride 2 mg tablet 2 mg PO BID Qty: 180 3RF Rx Instructions: Hold if glucose less than 130 mg/dl propranolol 10 MG tablet 5 mg PO BID Qty: 30 0RF Rx Instructions: Hold for heart less than 60 or systolic blood pressure less than 100 mmHg. lisinopril 5 mg tablet 2.5 mg PO DAILY Qty: 90 3RF Rx Instructions: Hold for SBP less than 130 mmHg ondansetron 4 mg tablet,disintegrating 4 mg PO Q6H PRN (Reason: nausea and vomiting) Qty: 7 0RF insulin glargine [Lantus Solostar U-100 Insulin] 100 unit/mL (3 mL) insulin pen 33 unit SC QHS Rx Instructions: Hold if glucose less than 130 mg/dl Discontinued ciprofloxacin HCl 750 mg tablet 750 mg PO BID 10 Days Qty: 20 0RF clindamycin HCl 300 mg capsule 300 mg PO 4X/DAY 10 Days Qty: 40 0RF Referrals / Follow Up: Nemesio Wing DPM [Med Staff - Active Staff] - Within 1 Week Will Shukla MD [Primary Care Provider] - Within 2 Weeks Disposition Disposition (needs filled in before D/C Order can be placed): Home, Self Care
--- NOTE | 2022-07-18 13:56 | DS.PCM_ITS ---
Providers Date of Admission: 07/13/22 Primary Care Physician: Dr. 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 Routine Comment: Reason for Consult:: diabetic foot wound, left foot cellulitis Consult: Podiatry Routine Consulting Provider: Will Guo Reason for Consult: left foot cellulitis EMERGENT Consult: No Notified: Yes Date Notified: 07/13/22 Time Notified: 08:39 Method of Notification: via phone 07/13/22 16:10 Consult: Infectious Disease Routine Consulting Provider: Alpesh Alxe Reason for Consult: Osteomyelitis of the left foot EMERGENT Consult: No Notified: Yes Date Notified: 07/13/22 Time Notified: 16:10 Method of Notification: Verbal Reason For Visit: REFRACTORY CELLULITIS Diagnosis Discharge Diagnosis (1) Foot osteomyelitis, left: Status: Acute Code(s): M86.9 - Osteomyelitis, unspecified Plan: Osteomyelitis of the left tibial sesamoid tibial sesamoidectomy 07/15 wounds have been polymicrobial: S. smulans, group B strep, enterococcus faecalis, enterobacter cloacae on daptomycin and cefepime since 07/14 ID following: Recommending 1 more week of oral linezolid, Bactrim and metron idazole. Follow-up with podiatry Per podiatry: Nonweightbearing the left lower extremity. Will require VTE prophylaxis upon discharge. Dressing will be clean dressing dry and intact and will follow-up in 1 week. (2) Cellulitis of left lower limb: Status: Acute Code(s): L03.116 - Cellulitis of left lower limb Plan: treatment as above Plan Chronic conditions: * type 2 diabetes-blood sugars will be monitored, sliding scale insulin will be given as needed * chronic kidney disease stage III secondary to type 2 diabetes-patient's renal functions will be monitored as needed * paroxysmal supraventricular tachycardia-patient takes rate limiting medication at home, this will be continued * spina bifida-patient has a suprapubic catheter and colostomy, complicates care, medical course, recovery, and prognosis. VTE prophylaxis: SCDs Medications at Discharge Home Medications furosemide 20 mg tablet 20 mg PO 2200 fluid 08/28/18 furosemide 40 mg tablet 40 mg PO BREAKFAST fluid 04/05/19 oxybutynin chloride 15 mg tablet,extended release 24 hr 15 mg PO DAILY bladder 06/16/20 acetaminophen 500 mg tablet 1,000 mg PO TID PRN PRN Pain Or Fever 02/12/20 trazodone 100 mg tablet 100 mg PO QHS sleep 01/19/21 atorvastatin 80 mg tablet 80 mg PO DAILY cholesterol 01/29/21 insulin aspart (niacinamide)(U-100) 100 unit/mL(3 mL) subcutaneous pen 0 - 100 ml subcut PRN PRN Hyperglycemia 01/29/21 pen needle, diabetic 32 gauge x 5/32 (BD Ultra-Fine Hope Pen Needle) #400 ea 03/05/21 phenazopyridine 200 mg tablet (Pyridium) 200 mg PO BID PRN PRN Pain 11/20/21 glimepiride 2 mg tablet 2 mg PO BID #180 tabs 01/21/22 lisinopril 5 mg tablet 2.5 mg PO DAILY #90 tabs 01/21/22 propranolol 10 mg tablet 5 mg PO BID heart #30 tabs 01/21/22 ondansetron 4 mg disintegrating tablet 4 mg PO Q6H PRN nausea and vomiting #7 tabs 03/22/22 insulin glargine 100 unit/mL (3 mL) subcutaneous pen (Lantus Solostar U-100 Insulin) 33 unit subcut QHS dm 07/13/22 enoxaparin 40 mg/0.4 mL subcutaneous syringe 40 mg (0.4 mL) subcut DAILY #12 mL 07/18/22 linezolid 600 mg tablet 600 mg PO Q12H #14 tabs 07/18/22 metronidazole 500 mg tablet 500 mg PO TID #20 tabs 07/18/22 oxycodone 5 mg tablet 5 mg PO Q4H PRN PRN Pain Score 4-10 3 days #12 tabs 07/18/22 sulfamethoxazole 800 mg-trimethoprim 160 mg tablet (Bactrim DS) 1 tab PO BID 7 days #14 tabs 07/18/22 Hospital Course Operations - (tibial sesamoidectomy) Summary of Care Provided Minutes Spent on Discharge: 35 Weight / BMI Weight Weight: 93.7 kg Body Mass Index (BMI) 38.2 ABG / Lab / Microbiology Data Result Diagrams: 07/13/22 06:02 07/16/22 04:20 Microbiology: Microbiology 07/14/22 15:15 Bone - Left Foot Gram Stain - Final 07/14/22 15:15 Bone - Left Foot Wound Culture - Final Staphylococcus simulans 07/14/22 15:15 Bone - Left Foot Anaerobic Culture - Preliminary 07/15/22 15:23 Tissue - Left Foot Gram Stain - Final 07/15/22 15:23 Tissue - Left Foot Wound Culture - Preliminary Enterococcus faecalis Enterobacter cloacae complex Staphylococcus species 07/13/22 00:40 Blood Culture (Wb) - Right Forearm Blood Culture - Final No growth in 5 days. 07/13/22 09:00 Wound - Heel, Left Gram Stain - Final 07/13/22 09:00 Wound - Heel, Left Wound Culture - Final Gram positive sue Streptococcus agalactiae (B) Staphylococcus simulans 07/13/22 00:15 Blood Culture (Wb) - Anticubital Right Blood Culture - Final Streptococcus agalactiae (B) D/C Instructions Discharge Diet: No restrictions Weight Bearing Status: No weight bearing Keep extremity elevated above heart level: Left Leg Call your doctor if your incision/area has: Sudden Increased Bleeding, Increased Pain/ Swelling, Increased Redness, Foul Smelling Discharge and Swelling at the incision site Call your doctor if you observe: Fever of 101 or Higher Cleanse incision/area with: Keep Dressing Clean & Dry Meaningful Use Info Meaningful Use Diagnoses (Choose all that apply): None applicable Discharge Plan Admission Admit Date/Time: 07/13/22 03:38 Primary Reason for Your Visit: left leg osteomyelitis and cellulitis Attending Provider: Rigo Encarnacion Primary Care Provider: Will Shukla Consulting Providers: Brittani Panda ; Alpesh Alex ; Will Guo ; Jhony Boyer Instructions Additional Instructions / Restrictions: follow up in 1 week Discharge Orders/Prescriptions Prescriptions: New enoxaparin 40 mg/0.4 mL syringe 40 mg subcut DAILY Qty: 12 0RF metronidazole 500 mg tablet 500 mg PO TID Qty: 20 0RF linezolid 600 mg tablet 600 mg PO Q12H Qty: 14 0RF sulfamethoxazole-trimethoprim [Bactrim DS] 800-160 mg tablet 1 tab PO BID 7 Days Qty: 14 0RF oxycodone 5 mg Tablet 5 mg PO Q4H PRN PRN (Reason: Pain Score 4-10) 3 Days Qty: 12 0RF Continued insulin aspart (niacinamide) 100 unit/mL (3 mL) insulin pen 0 - 100 ml subcut PRN PRN (Reason: Hyperglycemia) Label Comments: Inject 8-18 Units subcutaneously three times daily before meals. (Includes SS # 2 QAC -> Pt. aware of details.) MAX TDD = 55 UNITS / DAY. E1 Rx Instructions: 15 PLUS SLIDING SCALE. atorvastatin 80 mg tablet 80 mg PO DAILY Label Comments: Take 1 tablet by mouth once daily. (DME) pen needle, diabetic [BD Ultra-Fine Hope Pen Needle] 32 gauge x 5/32 needle See Rx Instructions .ROUTE .MEDSUPPLY Qty: 400 6RF Rx Instructions: 4x/day furosemide 20 MG tablet 20 mg PO 2200 Hold Instructions: Resume on 11/24/21. Rx Instructions: 20 mg in the evening furosemide 40 MG tablet 40 mg PO BREAKFAST Hold Instructions: Resume on 11/24/21. oxybutynin chloride 15 mg tablet extended release 24hr 15 mg PO DAILY acetaminophen 500 MG tablet 1,000 mg PO TID PRN PRN (Reason: Pain Or Fever) trazodone 100 mg tablet 100 mg PO QHS Label Comments: Take 1 tablet by mouth daily at bedtime. phenazopyridine [Pyridium] 200 MG tablet 200 mg PO BID PRN PRN (Reason: Pain) glimepiride 2 mg tablet 2 mg PO BID Qty: 180 3RF Rx Instructions: Hold if glucose less than 130 mg/dl propranolol 10 MG tablet 5 mg PO BID Qty: 30 0RF Rx Instructions: Hold for heart less than 60 or systolic blood pressure less than 100 mmHg. lisinopril 5 mg tablet 2.5 mg PO DAILY Qty: 90 3RF Rx Instructions: Hold for SBP less than 130 mmHg ondansetron 4 mg tablet,disintegrating 4 mg PO Q6H PRN (Reason: nausea and vomiting) Qty: 7 0RF insulin glargine [Lantus Solostar U-100 Insulin] 100 unit/mL (3 mL) insulin pen 33 unit SC QHS Rx Instructions: Hold if glucose less than 130 mg/dl Discontinued ciprofloxacin HCl 750 mg tablet 750 mg PO BID 10 Days Qty: 20 0RF clindamycin HCl 300 mg capsule 300 mg PO 4X/DAY 10 Days Qty: 40 0RF Referrals / Follow Up: [place],Nemesio, DPM [Med Staff - Active Staff] - Within 1 Week Will Shukla MD [Primary Care Provider] - Within 2 Weeks Disposition Disposition (needs filled in before D/C Order can be placed): Home, Self Care Charges/Coding Visit Charges Inpatient E&M: 78072 Disch Hosp >30min
[2022-07-18 14:22] VITALS: BP 112/69; PULSE 65; RESP 16; TEMP 36.9; O2SAT 99
== END 2022-07-18 16:20 | disposition home or self-care (01) | DRG 623 ==
LOC: ED 07-13 02:11 → MS3 07-13 04:02
PROVIDERS: Anesthesiology; Internal Medicine; Internal Medicine Infectious Disease; Podiatrist; Admitting Provider Internal Medicine; Emergency Provider Emergency Medicine; PCP Family Medicine
PROC: 0JBR0ZZ Excision of Left Foot Subcutaneous Tissue and Fascia, Open Approach (ICD-10-PCS; principal; 2022-07-15 14:20)
DX: E11.621 Type 2 diabetes mellitus with foot ulcer (principal); L03.116 Cellulitis of left lower limb; I47.1 Supraventricular tachycardia; L97.422 Non-pressure chronic ulcer of left heel and midfoot with fat layer exposed; M86.9 Osteomyelitis, unspecified; E11.42 Type 2 diabetes mellitus with diabetic polyneuropathy; E11.22 Type 2 diabetes mellitus with diabetic chronic kidney disease; E11.65 Type 2 diabetes mellitus with hyperglycemia; N18.30 Chronic kidney disease, stage 3 unspecified; Z79.4 Long term (current) use of insulin; Q05.9 Spina bifida, unspecified; L97.522 Non-pressure chronic ulcer of other part of left foot with fat layer exposed; E11.628 Type 2 diabetes mellitus with other skin complications; Z93.3 Colostomy status; I12.9 Hypertensive chronic kidney disease with stage 1 through stage 4 chronic kidney disease, or unspecified chronic kidney disease; E78.5 Hyperlipidemia, unspecified; F34.1 Dysthymic disorder; G89.29 Other chronic pain; R50.9 Fever, unspecified; F41.0 Panic disorder [episodic paroxysmal anxiety]; Z82.3 Family history of stroke
CPT/HCPCS: 36415; 73620; 73630; 73720; 76000; 80048; 80053; 81025; 82550; 82962; 83036; 83605; 84443; 85025; 85652; 86140; 87015; 87040; 87070; 87075; 87077; 87102; 87116; 87186; 87205; 87206; 87640; 88304; 88305; 88311; 93005; 97802; 99283; A9575; J0878; J7030; A4216; J0744; J2405; J3490

== ENCOUNTER 2022-08-16 11:39 | Emergency (ER) | payer MEDICARE, MEDICAID, SELFPAY ==
[2022-08-16 11:40] VITALS: BP 129/82; PULSE 94; RESP 18; TEMP 36.1; O2SAT 98
[2022-08-16 11:48] VITALS: BP 116/96; PULSE 90; RESP 18; TEMP 37.1; O2SAT 98; BMI 39.2
--- NOTE | 2022-08-16 11:53 | RAD_ITS ---
STUDY: X-RAY - LEFT FOOT CLINICAL: Female, 41 years old. Pain. Soft tissue wound overlying the calcaneus. TECHNIQUE: 3 view(s) of the foot. COMPARISON: Comparison is made with prior study dated July 15, 2022. FINDINGS: There is an enthesophyte involving the posterior superior calcaneus at the site of insertion of the Achilles tendon. Normal visualized subtalar, talonavicular, calcaneocuboid, tarsal and tarsometatarsal articulations. Has been resection of the distal portion of the fifth metatarsal. Normal metatarsophalangeal joint of the great toe. Normal tibial and fibular sesamoid bones. There has been resection of the distal phalanx of the great toe. Normal second through fifth metatarsophalangeal joints. Normal interphalangeal joints and phalanges of the lesser toes. Diffuse soft tissue swelling. RAD/Foot min 3 Views IMPRESSION: Diffuse soft tissue swelling. Prior resection of the distal phalanx of the great toe as well as the distal portion of the fifth metatarsal. Calcaneal spur. Electronically Signed: Stephan Sood MD at 13:18 EDT ,
--- NOTE | 2022-08-16 11:54 | EDS_ITS ---
HPI History of Present Illness Chief Complaint: General Illness Narrative Narrative: 41-year-old female past medical history of diabetes, spina bifida, chronic diabetic foot ulcers, especially on the left, presents with pain in the ulcer of her left foot that has been treated by Dr. Wing. She relates history that she has had an ulcer on her left heel for quite some time. Additionally, 5 weeks ago she was admitted to the hospital and received antibiotics because they were treating the wound on her distal foot and on her heel at the same time. She states that her cane flume watchman, Dr. Wing had to remove a bone in the distal portion of her foot. She called him today because she has been having pain in her heel, and was told to come to the emergency department for evaluation of her chronic left diabetic foot ulcer. She states that she has not had documented fever but was chilled last evening. Additionally, she has an indwelling Morales catheter and states that she started to have low back pain and thinks she may have an infection of her urine also. She states that the only time that she has pain in her diabetic foot ulcer is when there is infection. Otherwise, she has a neuropathy in her left lower extremity. [facility] Medical History Anxiety and depression Arthritis Manley's palsy Cellulitis of left lower extremity Chronic back pain Chronic nausea CKD (chronic kidney disease) Colostomy in place Constipation Delayed wound healing Depression Diabetes mellitus with diabetic polyneuropathy Diabetes mellitus, type II Diabetic foot infection Diabetic polyneuropathy Diabetic ulcer of left heel with fat layer exposed DJD (degenerative joint disease) of thoracic spine Dysthymic disorder Essential hypertension Hematochezia History of kidney stones History of migraine Hydronephrosis of right kidney Hyperglycemia Hyperlipidemia Infection of bladder catheter Insomnia Lipomeningocele Lower extremity edema Microalbuminuria Morbid obesity with BMI of 40.0-44.9, adult Neurogenic bladder Neurogenic bowel Non-compliance Non-smoker Normochromic normocytic anemia Open wound of left foot Panic attacks PSVT (paroxysmal supraventricular tachycardia) Sepsis Sepsis Spina bifida aperta of lumbar spine Thyroid cyst Type 2 diabetes mellitus with diabetic polyneuropathy Type 2 diabetes mellitus with foot ulcer Ulcer of left heel and midfoot with fat layer exposed Uninodular goiter Urinary tract infection Urinary tract infection UTI (urinary tract infection) UTI (urinary tract infection) Weakness Home Medications furosemide 20 mg tablet 20 mg PO 2200 fluid 08/28/18 [History Last Taken 01/18/22] furosemide 40 mg tablet 40 mg PO BREAKFAST fluid 04/05/19 [History Last Taken 01/19/22] oxybutynin chloride 15 mg tablet,extended release 24 hr 15 mg PO DAILY bladder 11/12/19 [History Last Taken 01/19/22] acetaminophen 500 mg tablet 1,000 mg PO TID PRN PRN Pain Or Fever 02/12/20 [History Last Taken 09/24/20 19:24] trazodone 100 mg tablet 100 mg PO QHS sleep 01/19/21 [History Last Taken Unknown] atorvastatin 80 mg tablet 80 mg PO DAILY cholesterol 01/29/21 [History Last Taken 01/19/22] insulin aspart (niacinamide)(U-100) 100 unit/mL(3 mL) subcutaneous pen 0 - 100 ml subcut PRN PRN Hyperglycemia 01/29/21 [History Last Taken Unknown] pen needle, diabetic 32 gauge x 5/32 (BD Ultra-Fine Hope Pen Needle) #400 ea 03/05/21 [Rx Last Taken Unknown] phenazopyridine 200 mg tablet (Pyridium) 200 mg PO BID PRN PRN Pain 11/20/21 [History Last Taken Unknown] glimepiride 2 mg tablet 2 mg PO BID #180 tabs 01/21/22 [Rx Last Taken 01/19/22] lisinopril 5 mg tablet 2.5 mg PO DAILY #90 tabs 01/21/22 [Rx Last Taken 01/19/22] propranolol 10 mg tablet 5 mg PO BID heart #30 tabs 01/21/22 [Rx Last Taken 01/19/22] ondansetron 4 mg disintegrating tablet 4 mg PO Q6H PRN nausea and vomiting #7 tabs 03/22/22 [Rx Last Taken Unknown] insulin glargine 100 unit/mL (3 mL) subcutaneous pen (Lantus Solostar U-100 Insulin) 33 unit subcut QHS dm 07/13/22 [History Last Taken Unknown] enoxaparin 40 mg/0.4 mL subcutaneous syringe 40 mg (0.4 mL) subcut DAILY #12 mL 07/18/22 [Rx Last Taken Unknown] linezolid 600 mg tablet 600 mg PO Q12H #14 tabs 07/18/22 [Rx Last Taken Unknown] metronidazole 500 mg tablet 500 mg PO TID #20 tabs 07/18/22 [Rx Last Taken Unknown] oxycodone 5 mg tablet 5 mg PO Q4H PRN PRN Pain Score 4-10 3 days #12 tabs 07/18/22 [Rx Last Taken Unknown] sulfamethoxazole 800 mg-trimethoprim 160 mg tablet (Bactrim DS) 1 tab PO BID 7 days #14 tabs 07/18/22 [Rx Last Taken Unknown] ciprofloxacin HCl 500 mg tablet (Cipro) 500 mg PO BID #20 tabs 08/16/22 [Rx Last Taken Unknown] doxycycline hyclate 100 mg tablet 100 mg PO BID #20 tabs 08/16/22 [Rx Last Taken Unknown] Allergy/AdvReac Type Severity Reaction Status Date / Time ceftriaxone [From Rocephin] Allergy Hives Verified 08/16/22 11:42 mushroom Allergy Anaphylaxis Verified 08/16/22 11:42 peanut Allergy Anaphylaxis Verified 08/16/22 11:42 piperacillin [From Zosyn] Allergy NEEDS Verified 08/16/22 11:42 FOLLOW-UP tazobactam [From Zosyn] Allergy NEEDS Verified 08/16/22 11:42 FOLLOW-UP fentanyl AdvReac Low blood Verified 08/16/22 11:42 pressure gabapentin AdvReac Other Verified 08/16/22 11:42 Gadolinium-MRI Contrast AdvReac Vomiting Verified 08/16/22 11:42 Medium Latex, Natural Rubber AdvReac Rash Verified 08/16/22 11:42 vancomycin AdvReac Rash Verified 08/16/22 11:42 Family History Mother CVA (cerebral vascular accident) Thyroid disorder Diabetes Hypertension Heart disease Hyperlipidemia Myocardial infarction, Onset Age: 54 mother had diabetes Father Cancer skin Grandmother Cancer liver Other Arthritis Skin cancer Surgical History history insertion suprapubic catheter History of cholecystectomy History of dilation and curettage History of spinal surgery Hx of foot surgery Hx of ventral hernia repair S/P colostomy S/P thyroid biopsy (~11/06/19) Status post gastric surgery Social History household members: significant other Smoking Status: Never smoker alcohol intake: current substance use type: does not use ROS ROS ED ROS Narrative Constitutional: No fever, positive chills. HEENT: No sore throat. No neck pain. No loss of vision. No rhinorrhea. Cardiovascular: No chest pain. No palpitations. No pedal edema. Respiratory: No cough, no shortness of breath. Abdominal: No abdominal pain. No nausea. No vomiting. Genitourinary: No dysuria. No hematuria. Musculoskeletal: No myalgias. No arthralgias. Left heel pain in area of ulcer. Neurologic: No headaches. No dizziness. No lightheadedness. Skin: No rash. No change in color. Diabetic foot ulcer left heel, chronic, being treated by podiatry. Psychiatric: No depression. No anxiety. EXAM Physical Exam Narrative Exam Narrative: Afebrile. Vital signs noted. HEENT: Normocephalic. Atraumatic. PERRL, EOMI. Neck soft and supple. No point tenderness or step off. Cardiovascular: Regular rate and rhythm. No murmurs, rubs, or gallops appreciated. Respiratory: No tachypnea. Lungs clear to auscultation bilaterally. Gastrointestinal: Abdomen soft, nontender, with normoactive bowel sounds. No rebound or guarding. Indwelling catheter draining clear to yellow urine. Neurological: Awake. Alert. Nonfocal, nonlateralizing. Skin: No rash. Normal color. No pallor. Positive healing wound left forefoot without erythema or purulent drainage. Chronic ulceration on the more lateral aspect of left heel. Musculoskeletal: No pedal edema. Full range of motion extremities. Const Vital Signs: 08/16/22 11:40 08/16/22 11:48 08/16/22 11:48 Temperature 97 F L 98.7 F Temperature Source Temporal Oral Pulse Rate 94 90 90 Respiratory Rate 18 18 18 Blood Pressure 129/82 H 116/96 H Blood Pressure Mean 97 102 Pulse Ox 98 98 98 Oxygen Delivery Method Room Air Room Air Room Air 08/16/22 13:02 08/16/22 12:42 08/16/22 13:00 Temperature 97.8 F 97.4 F L Temperature Source Temporal Temporal Pulse Rate 78 82 Respiratory Rate 16 17 Blood Pressure 114/73 114/78 Blood Pressure Mean 86 90 Pulse Ox 100 99 Oxygen Delivery Method Room Air Room Air Room Air 08/16/22 14:44 08/16/22 14:57 Temperature 98.4 F Temperature Source Oral Pulse Rate 83 62 Respiratory Rate 14 15 Blood Pressure 115/76 138/71 H Blood Pressure Mean 89 Pulse Ox 99 98 Oxygen Delivery Method Room Air MDM MDM MDM Narrative Medical decision making narrative: Concern would be for sepsis diabetic foot ulcer versus osteomyelitis. Comprehensive work-up was pursued. Attempt was made to rule out sepsis additionally. EKG was obtained and interpreted by myself which demonstrates normal sinus rhythm at 89 bpm without ectopy or acute ST change. No STEMI. No significant change from EKG dated July 15, 2022 except for at that time she was bradycardic. I reviewed her laboratory work. Although she has an elevated white count of 15.6, she also has a chronic leukocytosis. Hemoglobin stable at 11.2 with hematocrit 34.6, platelet count normal at 235. Coagulation studies are negative with an INR of 1.0 and a PTT of 28.1. CMP is remarkable for a sodium of 134. Glucose elevated at 262 but she has a normal anion gap of 8. I do not feel that she is in diabetic ketoacidosis. Urinalysis from her suprapubic catheter is positive for nitrites and she has elevated WBCs, but this may be a chronic colonization. Foot Tim 3 views interpreted by myself shows soft tissue swelling but no evidence of osteomyelitis. I reviewed the radiology report which confirms my independent interpretation. Dr. Wing has come to the ED to see the patient. He requested that aerobic and anaerobic cultures of the heel ulcer be obtained, and would like her placed on doxycycline and ciprofloxacin. I do feel that this would take care of any urinary tract infection that she may have but once again, she has a chronic indwelling suprapubic catheter. She was given her first doses of antibiotics here in the emergency department. Dr. Wing has also arranged for her to be seen 2 days from now at 915 in the clinic/office. I feel she can be discharged safely home with follow-up to her cane flume watchman. Return instructions to the emergency department were reviewed. Disposition is discharged home in stable condition. History & Record Review Discussion w/independent historian: Patient Additional record(s) reviewed:: Prior ED visit and Prior labs Lab Data Attestation: I reviewed the patient's lab results. Labs: Laboratory Results - last 24 hr 03/08/16/22 08/16/22 11:56 12:40 12:40 WBC 15.6 H RBC 4.02 L Hgb 11.2 L Hct 34.6 L MCV 86.1 MCH 27.9 MCHC 32.4 RDW Std Deviation 46.2 H RDW Coeff of Claude 14.7 H Plt Count 235 MPV 10.5 Immature Gran % (Auto) 1.600 H Neut % (Auto) 77.0 H Lymph % (Auto) 14.1 L [place] % (Auto) 6.5 Eos % (Auto) 0.4 Baso % (Auto) 0.4 Absolute Neuts (auto) 12.0 H Absolute Lymphs (auto) 2.20 Nucleated RBC % 0 PT 12.4 INR 1.0 APTT 28.1 Sodium Potassium Chloride Carbon Dioxide Anion Gap BUN Creatinine Estim Creat Clear Calc Est GFR (MDRD) Af Amer Est GFR (MDRD) Non-Af BUN/Creatinine Ratio Glucose Lactic Acid Calcium Total Bilirubin AST ALT Alkaline Phosphatase Total Protein Albumin Globulin Albumin/Globulin Ratio Urine Color Yellow Urine Clarity Cloudy Urine pH 6.0 Ur Specific [place] 1.015 Urine Protein 100 H Urine Glucose (UA) 1000 H Urine Ketones Negative Urine Occult Blood 50 H Urine Nitrite Positive H Urine Bilirubin Negative Urine Urobilinogen Normal Ur Leukocyte Esterase 500 H Urine RBC 0-5 SEEN Urine WBC 25-50 SEEN Ur Squamous Epith Cells 0-5 SEEN Urine Bacteria 4+ Urine Mucus 0 SEEN 08/16/22 08/16/22 12:40 12:40 WBC RBC Hgb Hct MCV MCH MCHC RDW Std Deviation RDW Coeff of Claude Plt Count MPV Immature Gran % (Auto) Neut % (Auto) Lymph % (Auto) [place] % (Auto) Eos % (Auto) Baso % (Auto) Absolute Neuts (auto) Absolute Lymphs (auto) Nucleated RBC % PT INR APTT Sodium 134 L Potassium 4.4 Chloride 103 Carbon Dioxide 23.0 Anion Gap 8 BUN 12 Creatinine 0.87 Estim Creat Clear Calc 64.86 Est GFR (MDRD) Af Amer 93 Est GFR (MDRD) Non-Af 77 BUN/Creatinine Ratio 13.9 Glucose 262 H Lactic Acid 1.0 Calcium 8.9 Total Bilirubin 0.40 AST 17 ALT 23 Alkaline Phosphatase 91 Total Protein 7.6 Albumin 3.2 Globulin 4.4 H Albumin/Globulin Ratio 0.7 L Urine Color Urine Clarity Urine pH Ur Specific [place] Urine Protein Urine Glucose (UA) Urine Ketones Urine Occult Blood Urine Nitrite Urine Bilirubin Urine Urobilinogen Ur Leukocyte Esterase Urine RBC Urine WBC Ur Squamous Epith Cells Urine Bacteria Urine Mucus Radiography Diagnostic Testing: Clinical Impression(s) from Imaging Studies Foot X-Ray 08/16/22 11:53 IMPRESSION: Diffuse soft tissue swelling. Prior resection of the distal phalanx of the great toe as well as the distal portion of the fifth metatarsal. Calcaneal spur. Electronically Signed: Stephan Sood MD at 13:18 EDT , Discharge Plan Triage Chief Complaint: General Illness Other Complaint: Wound Check ED Provider: Keaton Stone Dx/Rx/DC Orders Clinical Impression: Non-pressure chronic ulcer of other part of left foot with fat layer exposed, Diabetic foot ulcer, UTI (urinary tract infection) Instructions: ED Diabetic Foot Care, ED Wound Care Prescriptions: New ciprofloxacin HCl [Cipro] 500 mg tablet 500 mg PO BID Qty: 20 0RF doxycycline hyclate 100 mg tablet 100 mg PO BID Qty: 20 0RF No Action insulin aspart (niacinamide) 100 unit/mL (3 mL) insulin pen 0 - 100 ml subcut PRN PRN (Reason: Hyperglycemia) Label Comments: Inject 8-18 Units subcutaneously three times daily before meals. (Includes SS # 2 QAC -> Pt. aware of details.) MAX TDD = 55 UNITS / DAY. E1 Rx Instructions: 15 PLUS SLIDING SCALE. atorvastatin 80 mg tablet 80 mg PO DAILY Label Comments: Take 1 tablet by mouth once daily. (DME) pen needle, diabetic [BD Ultra-Fine Hope Pen Needle] 32 gauge x 5/32 needle See Rx Instructions .ROUTE .MEDSUPPLY Qty: 400 6RF Rx Instructions: 4x/day furosemide 20 MG tablet 20 mg PO 2200 Hold Instructions: Resume on 11/24/21. Rx Instructions: 20 mg in the evening furosemide 40 MG tablet 40 mg PO BREAKFAST Hold Instructions: Resume on 11/24/21. oxybutynin chloride 15 mg tablet extended release 24hr 15 mg PO DAILY acetaminophen 500 MG tablet 1,000 mg PO TID PRN PRN (Reason: Pain Or Fever) trazodone 100 mg tablet 100 mg PO QHS Label Comments: Take 1 tablet by mouth daily at bedtime. phenazopyridine [Pyridium] 200 MG tablet 200 mg PO BID PRN PRN (Reason: Pain) glimepiride 2 mg tablet 2 mg PO BID Qty: 180 3RF Rx Instructions: Hold if glucose less than 130 mg/dl propranolol 10 MG tablet 5 mg PO BID Qty: 30 0RF Rx Instructions: Hold for heart less than 60 or systolic blood pressure less than 100 mmHg. lisinopril 5 mg tablet 2.5 mg PO DAILY Qty: 90 3RF Rx Instructions: Hold for SBP less than 130 mmHg ondansetron 4 mg tablet,disintegrating 4 mg PO Q6H PRN (Reason: nausea and vomiting) Qty: 7 0RF insulin glargine [Lantus Solostar U-100 Insulin] 100 unit/mL (3 mL) insulin pen 33 unit SC QHS Rx Instructions: Hold if glucose less than 130 mg/dl enoxaparin 40 mg/0.4 mL syringe 40 mg subcut DAILY Qty: 12 0RF metronidazole 500 mg tablet 500 mg PO TID Qty: 20 0RF linezolid 600 mg tablet 600 mg PO Q12H Qty: 14 0RF sulfamethoxazole-trimethoprim [Bactrim DS] 800-160 mg tablet 1 tab PO BID 7 Days Qty: 14 0RF oxycodone 5 mg Tablet 5 mg PO Q4H PRN PRN (Reason: Pain Score 4-10) 3 Days Qty: 12 0RF Primary Care Provider: Will Shukla Referrals: Nemesio Wing DPM [Med Staff - Active Staff] - Keep Mireya appointment Will Shukla MD [Primary Care Provider] - Activity Restrictions/Additional Instructions: Follow-up with Dr. Wing on at 9:15 AM in the office. Take all the antibiotics. Disposition Disposition: Home, Self Care Discharge Date/Time: 08/16/22 14:58
[2022-08-16 12:24] LABS: Mucous, Urine 0 SEEN /hpf (<or=2+)
[2022-08-16 12:25] LABS: Color, Urine Yellow (Yellow); Glucose, Dipstick 1000 mg/dl (Normal); Ketone-Dipstick Negative (Negative); Leukocyte Esterase-Dipstick 500 /ul (Negative); Nitrite-Dipstick Positive (Negative); Occult Blood-Urine 50 /ul (Negative); Protein-Dipstick 100 mg/dl (Negative); Specific Gravity, Urine 1.015 (1.002-1.030); Urine Bilirubin Dipstick Negative (Negative); Urine Clarity Cloudy (Clear); Urine Urobilinogen Normal (Normal)
[2022-08-16 12:42] VITALS: BP 114/73; PULSE 78; RESP 16; TEMP 36.6; O2SAT 100
[2022-08-16 13:00] VITALS: BP 114/78; PULSE 82; RESP 17; TEMP 36.3; O2SAT 99
[2022-08-16 13:02] LABS: Basophil# 0.07 X10^3/uL; Basophil% 0.4 % (0-1); Eosinophil# 0.07 X10^3/uL; Eosinophils% 0.4 % (0-5); Hematocrit 34.6 % (37-47); Hemoglobin 11.2 g/dL (12.0-15.0); Lymphocyte % 14.1 % (19-41); Mean Corp Hgb Conc 32.4 g/dL (32-36); Mean Corpuscular Hgb 27.9 pg (27.0-32.0); Mean Corpuscular Volume 86.1 fL (81-99); Mean Platelet Vol. 10.5 fl (6.2-12.0); Monocyte# 1.02 X10^3/uL; Monocyte% 6.5 % (0-10); NRBC Flagged by Analyzer 0 % (0-5); Platelet Count 235 K/mm3 (150-450); RBC Distribution Width CV 14.7 % (11.6-14.6); RBC Distribution Width SD 46.2 fl (35.1-43.9); Red Blood Count 4.02 M/mm3 (4.2-5.4); White Blood Count 15.6 K/mm3 (4.4-11.0)
[2022-08-16 13:09] LABS: Prothrombin Time (Protime)PT. 12.4 SECONDS (11.7-14.9)
[2022-08-16 13:14] LABS: ALB/GLOB Ratio 0.7 RATIO (0.9-2.4); AST(SGOT) 17 U/L (15-37); Alanine Aminotransfer ALT/SGPT 23 U/L (13-56); Albumin, Serum 3.2 g/dL (3.2-5.0); Alkaline Phosphatase 91 U/L (45-117); Anion Gap 8 (5-15); BUN 12 mg/dL (7-18); BUN/Creat Ratio 13.9 RATIO (10-20); Calcium,Total 8.9 mg/dL (8.5-10.1); Chloride 103 mmol/L (98-107); Creatinine, Serum 0.87 mg/dL (0.55-1.02); EST Glomerular Filtration Rate 77 mL/min (>60); Est Glom Filt Rate - Afr Amer 93 mL/min (>60); Estimated Creatinine Clearance 64.86 ml/min; Globulin 4.4 g/dL (2.2-4.2); Glucose 262 mg/dL (74-106); Potassium 4.4 mmol/L (3.5-5.1); Protein, Total 7.6 g/dL (6.4-8.2); Sodium Level 134 mmol/L (136-145)
[2022-08-16 13:20] LABS: Bacteria 4+ /hpf (None Seen); Red Blood Cells-Urine 0-5 SEEN /hpf (0-5); Squamous Epithelial Cells - UA 0-5 SEEN /hpf (5-10); White Blood Cells 25-50 SEEN /hpf (0-5)
--- NOTE | 2022-08-16 13:25 | PCM.CONS.GEN ---
Assessment & Plan Assessment/Plan (1) Non-pressure chronic ulcer of other part of left foot with fat layer exposed: PLAN: Exam performed radiographs negative for osteomyelities or gas Leukocytosis noted, vitals stable Wound dry with mild cellulitis, recommend current daily dressing change regimen Recommend PO doxy/cipro Recommend repeat wound culture continue NWB Patient to follow up in clinic at 9:15 (2) Cellulitis of foot, left: HPI Consult Data Date of Consult: 08/16/22 HPI Narrative HPI Narrative: HEBER BAILON, is a 41 F who presents with a chronic left heel wound and forefoot wound s/p debridement and sesamoidectomy on 07/15/22. Patient was d/c'd on PO abx per ID recommendation. Patient presents to er today with new onset pain, redness and swelling. She denies any constititutional symptoms. She notes that she did trip on the site recently and has noticed issues since that time. [facility] Medical History Anxiety and depression Arthritis Manley's palsy Cellulitis of left lower extremity Chronic back pain Chronic nausea CKD (chronic kidney disease) Colostomy in place Constipation Delayed wound healing Depression Diabetes mellitus with diabetic polyneuropathy Diabetes mellitus, type II Diabetic foot infection Diabetic polyneuropathy Diabetic ulcer of left heel with fat layer exposed DJD (degenerative joint disease) of thoracic spine Dysthymic disorder Essential hypertension Hematochezia History of kidney stones History of migraine Hydronephrosis of right kidney Hyperglycemia Hyperlipidemia Infection of bladder catheter Insomnia Lipomeningocele Lower extremity edema Microalbuminuria Morbid obesity with BMI of 40.0-44.9, adult Neurogenic bladder Neurogenic bowel Non-compliance Non-smoker Normochromic normocytic anemia Open wound of left foot Panic attacks PSVT (paroxysmal supraventricular tachycardia) Sepsis Sepsis Spina bifida aperta of lumbar spine Thyroid cyst Type 2 diabetes mellitus with diabetic polyneuropathy Type 2 diabetes mellitus with foot ulcer Ulcer of left heel and midfoot with fat layer exposed Uninodular goiter Urinary tract infection Urinary tract infection UTI (urinary tract infection) UTI (urinary tract infection) Weakness Home Medications furosemide 20 mg tablet 20 mg PO 2200 fluid 08/28/18 [History Last Taken 01/18/22] furosemide 40 mg tablet 40 mg PO BREAKFAST fluid 04/05/19 [History Last Taken 01/19/22] oxybutynin chloride 15 mg tablet,extended release 24 hr 15 mg PO DAILY bladder 11/12/19 [History Last Taken 01/19/22] acetaminophen 500 mg tablet 1,000 mg PO TID PRN PRN Pain Or Fever 02/12/20 [History Last Taken 09/24/20 19:24] trazodone 100 mg tablet 100 mg PO QHS sleep 01/19/21 [History Last Taken Unknown] atorvastatin 80 mg tablet 80 mg PO DAILY cholesterol 01/29/21 [History Last Taken 01/19/22] insulin aspart (niacinamide)(U-100) 100 unit/mL(3 mL) subcutaneous pen 0 - 100 ml subcut PRN PRN Hyperglycemia 01/29/21 [History Last Taken Unknown] pen needle, diabetic 32 gauge x 5/32 (BD Ultra-Fine Hope Pen Needle) #400 ea 03/05/21 [Rx Last Taken Unknown] phenazopyridine 200 mg tablet (Pyridium) 200 mg PO BID PRN PRN Pain 11/20/21 [History Last Taken Unknown] glimepiride 2 mg tablet 2 mg PO BID #180 tabs 01/21/22 [Rx Last Taken 01/19/22] lisinopril 5 mg tablet 2.5 mg PO DAILY #90 tabs 01/21/22 [Rx Last Taken 01/19/22] propranolol 10 mg tablet 5 mg PO BID heart #30 tabs 01/21/22 [Rx Last Taken 01/19/22] ondansetron 4 mg disintegrating tablet 4 mg PO Q6H PRN nausea and vomiting #7 tabs 03/22/22 [Rx Last Taken Unknown] insulin glargine 100 unit/mL (3 mL) subcutaneous pen (Lantus Solostar U-100 Insulin) 33 unit subcut QHS dm 07/13/22 [History Last Taken Unknown] enoxaparin 40 mg/0.4 mL subcutaneous syringe 40 mg (0.4 mL) subcut DAILY #12 mL 07/18/22 [Rx Last Taken Unknown] linezolid 600 mg tablet 600 mg PO Q12H #14 tabs 07/18/22 [Rx Last Taken Unknown] metronidazole 500 mg tablet 500 mg PO TID #20 tabs 07/18/22 [Rx Last Taken Unknown] oxycodone 5 mg tablet 5 mg PO Q4H PRN PRN Pain Score 4-10 3 days #12 tabs 07/18/22 [Rx Last Taken Unknown] sulfamethoxazole 800 mg-trimethoprim 160 mg tablet (Bactrim DS) 1 tab PO BID 7 days #14 tabs 07/18/22 [Rx Last Taken Unknown] Allergy/AdvReac Type Severity Reaction Status Date / Time ceftriaxone [From Rocephin] Allergy Hives Verified 08/16/22 11:42 mushroom Allergy Anaphylaxis Verified 08/16/22 11:42 peanut Allergy Anaphylaxis Verified 08/16/22 11:42 piperacillin [From Zosyn] Allergy NEEDS Verified 08/16/22 11:42 FOLLOW-UP tazobactam [From Zosyn] Allergy NEEDS Verified 08/16/22 11:42 FOLLOW-UP fentanyl AdvReac Low blood Verified 08/16/22 11:42 pressure gabapentin AdvReac Other Verified 08/16/22 11:42 Gadolinium-MRI Contrast AdvReac Vomiting Verified 08/16/22 11:42 Medium Latex, Natural Rubber AdvReac Rash Verified 08/16/22 11:42 vancomycin AdvReac Rash Verified 08/16/22 11:42 Family History Mother CVA (cerebral vascular accident) Thyroid disorder Diabetes Hypertension Heart disease Hyperlipidemia Myocardial infarction, Onset Age: 54 mother had diabetes Father Cancer skin Grandmother Cancer liver Other Arthritis Skin cancer Surgical History history insertion suprapubic catheter History of cholecystectomy History of dilation and curettage History of spinal surgery Hx of foot surgery Hx of ventral hernia repair S/P colostomy S/P thyroid biopsy (~11/06/19) Status post gastric surgery Social History household members: significant other Smoking Status: Never smoker alcohol intake: current substance use type: does not use ROS Eyes Eyes: Denies double vision, foreign body or miosis ENT HEENT: Denies bleeding gums, ear discharge or hearing loss Cardiovascular Cardiovascular: Denies abdominal edema, chest pain or cyanosis Respiratory/Chest Respiratory/Chest: Denies change in mental status, difficulty clearing secretions or excessive phlegm production Gastrointestinal Gastrointestinal: Denies anorexia, coffee ground emesis or early satiety Physical Exam Narrative Intact pedal pulses loss of protective sensation bilateral feet focal ulceration to plantar heel and 1st met head, limited to subcutaneous breakdown. Periwound erythema, edema, warmth and pain. No fluctuance or crepitus. Patient has spina bifida Lab / Micro Data Result Diagrams: 08/16/22 12:40 08/16/22 12:40 Labs: Laboratory Results - last 24 hr 08/16/22 11:56: Urine Color Yellow, Urine Clarity Cloudy, Urine pH 6.0, Ur Specific [place] 1.015, Urine Protein 100 H, Urine Glucose (UA) 1000 H, Urine Ketones Negative, Urine Occult Blood 50 H, Urine Nitrite Positive H, Urine Bilirubin Negative, Urine Urobilinogen Normal, Ur Leukocyte Esterase 500 H, Urine RBC 0-5 SEEN, Urine WBC 25-50 SEEN, Ur Squamous Epith Cells 0-5 SEEN, Urine Bacteria 4+, Urine Mucus 0 SEEN 08/16/22 12:40: WBC 15.6 H, RBC 4.02 L, Hgb 11.2 L, Hct 34.6 L, MCV 86.1, MCH 27.9, MCHC 32.4, RDW Std Deviation 46.2 H, RDW Coeff of Claude 14.7 H, Plt Count 235, MPV 10.5, Immature Gran % (Auto) 1.600 H, Neut % (Auto) 77.0 H, Lymph % (Auto) 14.1 L, [place] % (Auto) 6.5, Eos % (Auto) 0.4, Baso % (Auto) 0.4, Absolute Neuts (auto) 12.0 H, Absolute Lymphs (auto) 2.20, Nucleated RBC % 0 08/16/22 12:40: Sodium 134 L, Potassium 4.4, Chloride 103, Carbon Dioxide 23.0, Anion Gap 8, BUN 12, Creatinine 0.87, Estim Creat Clear Calc 64.86, Est GFR (MDRD) Af Amer 93, Est GFR (MDRD) Non-Af 77, BUN/Creatinine Ratio 13.9, Glucose 262 H, Calcium 8.9, Total Bilirubin 0.40, AST 17, ALT 23, Alkaline Phosphatase 91, Total Protein 7.6, Albumin 3.2, Globulin 4.4 H, Albumin/Globulin Ratio 0.7 L 08/16/22 12:40: Lactic Acid 1.0 Radiology Impression Foot X-Ray 08/16/22 11:53 IMPRESSION: Diffuse soft tissue swelling. Prior resection of the distal phalanx of the great toe as well as the distal portion of the fifth metatarsal. Calcaneal spur. Electronically Signed: Stephan Sood MD at 13:18 EDT ,
[2022-08-16 13:32] LABS: Partial Thromboplast Time 28.1 Seconds (24.1-36.2)
[2022-08-16 14:44] VITALS: BP 115/76; PULSE 83; RESP 14; TEMP 36.9; O2SAT 99
[2022-08-16] MEDS: Ciprofloxacin 500 MG Tablet PO (14:51)
[2022-08-16] MEDS: Doxycycline 100 MG CAPSULE PO (14:51)
[2022-08-16 14:57] VITALS: BP 138/71; PULSE 62; RESP 15; O2SAT 98
== END 2022-08-16 14:58 | disposition home or self-care (01) ==
PROVIDERS: Emergency Provider Emergency Medicine; PCP Family Medicine; Visit Provider Emergency Medicine
DX: E11.621 Type 2 diabetes mellitus with foot ulcer (principal); L97.522 Non-pressure chronic ulcer of other part of left foot with fat layer exposed; Q05.9 Spina bifida, unspecified; E11.42 Type 2 diabetes mellitus with diabetic polyneuropathy; E11.22 Type 2 diabetes mellitus with diabetic chronic kidney disease; E11.65 Type 2 diabetes mellitus with hyperglycemia; Z79.4 Long term (current) use of insulin; N39.0 Urinary tract infection, site not specified; F34.1 Dysthymic disorder; G89.29 Other chronic pain; N18.9 Chronic kidney disease, unspecified; F41.0 Panic disorder [episodic paroxysmal anxiety]; E78.5 Hyperlipidemia, unspecified; G47.00 Insomnia, unspecified; I12.9 Hypertensive chronic kidney disease with stage 1 through stage 4 chronic kidney disease, or unspecified chronic kidney disease; Z82.3 Family history of stroke; R00.1 Bradycardia, unspecified
CPT/HCPCS: 73630; 80053; 81001; 83605; 85025; 85610; 85730; 87040; 87070; 87075; 87077; 87086; 87088; 87186; 87205; 93005; 99283; J7030; A4216

== ENCOUNTER 2022-10-06 22:35 | Emergency (ER) | payer MEDICARE, MEDICAID, SELFPAY ==
[2022-10-06 22:36] VITALS: BP 143/99; PULSE 86; RESP 16; TEMP 36.7; O2SAT 100
--- NOTE | 2022-10-06 22:51 | EX.ED.DYSGE1 ---
HPI History of Present Illness Chief Complaint: Lower Extremity Injury Detail of Chief Complaint: Left leg pain Informant: patient Onset/Context/Timing Onset: Yesterday Context: Gradual Onset Current Severity: Moderate Maximum Severity: Severe Worsened by: Weightbearing or hanging leg down to gravity. Narrative Narrative: Patient presents secondary to left lower leg pain. She has a chronic wound on the bottom of her left foot. She has been followed with podiatry and it has been healing well. She reports a fall last Monday, September 30. She fell striking her back. She did not develop any leg pain until the and complains of pain only distal to her left knee. [facility] Medical History Anxiety and depression Arthritis Manley's palsy Cellulitis of left lower extremity Chronic back pain Chronic nausea CKD (chronic kidney disease) Colostomy in place Constipation Delayed wound healing Depression Diabetes mellitus with diabetic polyneuropathy Diabetes mellitus, type II Diabetic foot infection Diabetic polyneuropathy Diabetic ulcer of left heel with fat layer exposed DJD (degenerative joint disease) of thoracic spine Dysthymic disorder Essential hypertension Hematochezia History of kidney stones History of migraine Hydronephrosis of right kidney Hyperglycemia Hyperlipidemia Infection of bladder catheter Insomnia Lipomeningocele Lower extremity edema Microalbuminuria Morbid obesity with BMI of 40.0-44.9, adult Neurogenic bladder Neurogenic bowel Non-compliance Non-smoker Noncompliance with diabetes treatment Normochromic normocytic anemia Open wound of left foot Panic attacks PSVT (paroxysmal supraventricular tachycardia) Sepsis Sepsis Spina bifida aperta of lumbar spine Thyroid cyst Type 2 diabetes mellitus with diabetic polyneuropathy Type 2 diabetes mellitus with foot ulcer Ulcer of left heel and midfoot with fat layer exposed Uninodular goiter Urinary tract infection Urinary tract infection UTI (urinary tract infection) UTI (urinary tract infection) Weakness Home Medications furosemide 20 mg tablet 20 mg PO 2200 fluid 08/28/18 [History Last Taken 01/18/22] furosemide 40 mg tablet 40 mg PO BREAKFAST fluid 04/05/19 [History Last Taken 01/19/22] oxybutynin chloride 15 mg tablet,extended release 24 hr 15 mg PO DAILY bladder 11/12/19 [History Last Taken 01/19/22] acetaminophen 500 mg tablet 1,000 mg PO TID PRN PRN Pain Or Fever 02/12/20 [History Last Taken 09/24/20 19:24] trazodone 100 mg tablet 100 mg PO QHS sleep 01/19/21 [History Last Taken Unknown] atorvastatin 80 mg tablet 80 mg PO DAILY cholesterol 01/29/21 [History Last Taken 01/19/22] pen needle, diabetic 32 gauge x 5/32 (BD Ultra-Fine Hope Pen Needle) #400 ea 03/05/21 [Rx Last Taken Unknown] phenazopyridine 200 mg tablet (Pyridium) 200 mg PO BID PRN PRN Pain 11/20/21 [History Last Taken Unknown] glimepiride 2 mg tablet 2 mg PO BID #180 tabs 01/21/22 [Rx Last Taken 01/19/22] lisinopril 5 mg tablet 2.5 mg PO DAILY #90 tabs 01/21/22 [Rx Last Taken 01/19/22] propranolol 10 mg tablet 5 mg PO BID heart #30 tabs 01/21/22 [Rx Last Taken 01/19/22] ondansetron 4 mg disintegrating tablet 4 mg PO Q6H PRN nausea and vomiting #7 tabs 03/22/22 [Rx Last Taken Unknown] enoxaparin 40 mg/0.4 mL subcutaneous syringe 40 mg (0.4 mL) subcut DAILY #12 mL 07/18/22 [Rx Last Taken Unknown] linezolid 600 mg tablet 600 mg PO Q12H #14 tabs 07/18/22 [Rx Last Taken Unknown] ciprofloxacin HCl 500 mg tablet (Cipro) 500 mg PO BID #20 tabs 08/16/22 [Rx Last Taken Unknown] sulfamethoxazole 800 mg-trimethoprim 160 mg tablet (Bactrim DS) 1 tab PO BID 7 days #14 tabs 08/19/22 [Rx Last Taken Unknown] insulin glargine 100 unit/mL (3 mL) subcutaneous pen (Lantus Solostar U-100 Insulin) 33 unit (0.33 mL) subcut QHS dm #30 mL 09/01/22 [Rx Last Taken Unknown] pen needle, diabetic 32 gauge x 5/32 (BD Ultra-Fine Hope Pen Needle) #350 ea 09/01/22 [Rx Last Taken Unknown] insulin lispro 100 unit/mL subcutaneous pen (Humalog KwikPen (U-100) Insulin) 15 unit (0.15 mL) subcut TID #21 mL 09/02/22 [Rx Last Taken Unknown] oxycodone 5 mg tablet 5 mg PO Q6H PRN pain 3 days #10 tabs 10/06/22 [Rx Last Taken Unknown] Allergy/AdvReac Type Severity Reaction Status Date / Time ceftriaxone [From Rocephin] Allergy Hives Verified 10/06/22 22:38 mushroom Allergy Anaphylaxis Verified 10/06/22 22:38 peanut Allergy Anaphylaxis Verified 10/06/22 22:38 piperacillin [From Zosyn] Allergy NEEDS Verified 10/06/22 22:38 FOLLOW-UP tazobactam [From Zosyn] Allergy NEEDS Verified 10/06/22 22:38 FOLLOW-UP fentanyl AdvReac Low blood Verified 10/06/22 22:38 pressure gabapentin AdvReac Other Verified 10/06/22 22:38 Gadolinium-MRI Contrast AdvReac Vomiting Verified 10/06/22 22:38 Medium Latex, Natural Rubber AdvReac Rash Verified 10/06/22 22:38 vancomycin AdvReac Rash Verified 10/06/22 22:38 Family History Mother CVA (cerebral vascular accident) Thyroid disorder Diabetes Hypertension Heart disease Hyperlipidemia Myocardial infarction, Onset Age: 54 mother had diabetes Father Cancer skin Grandmother Cancer liver Other Arthritis Skin cancer Surgical History history insertion suprapubic catheter History of cholecystectomy History of dilation and curettage History of spinal surgery Hx of foot surgery Hx of ventral hernia repair S/P colostomy S/P thyroid biopsy (~11/06/19) Status post gastric surgery Social History household members: significant other Smoking Status: Never smoker alcohol intake: current substance use type: does not use ROS ROS ED Constitutional Constitutional ED: Denies chills or fever(s) Eyes Eyes: Denies discharge from eye(s) ENT ENT ED: Denies discharge from eye(s) or rhinorrhea Cardiovascular Cardiovascular: Denies chest pain Respiratory/Chest Respiratory/Chest: Denies cough or dyspnea Gastrointestinal Gastrointestinal: Denies abdominal pain, nausea or vomiting Genitourinary Genitourinary ED: Denies dysuria Musculoskeletal Musculoskeletal: Reports extremity pain; Denies back pain Integumentary Reports other Details: Left foot wound ; Denies Abrasions or rash Neurologic Neurologic: Denies headache(s) or weakness Allergic/Immunologic Allergic/Immunologic ED: Denies lip swelling or urticaria EXAM Physical Exam Const Vital Signs: 10/06/22 22:36 Temperature 98.0 F Temperature Source Temporal Pulse Rate 86 Respiratory Rate 16 Blood Pressure 143/99 H Blood Pressure Mean 113 Pulse Ox 100 Oxygen Delivery Method Room Air Positive well nourished and well developed General Appearance ED: well developed HEENT Reports moist mucous membranes Eyes PERRL and EOMs intact bilaterally Neck no lymphadenopathy Chest Wall inspection of chest normal and palpation of chest normal Resp normal respiratory effort and clear to auscultation bilaterally Cardio regular rate and regular rhythm GI normal to inspection, nondistended, normoactive bowel sounds Extremity Extremity Narrative: Healing scabbed lesion to the heel of the left foot. No surrounding cellulitis. No erythema. Neuro oriented x3 MDM MDM MDM Narrative Medical decision making narrative: Venous ultrasound of the left lower extremity obtained to evaluate for DVT. Patient is no longer on Lovenox. X-ray of the left tib-fib and left foot also obtained to evaluate for fracture. Patient given a dose of oxycodone for pain. Radiography Diagnostic Testing: Clinical Impression(s) from Imaging Studies Foot X-Ray 10/06/22 23:00 IMPRESSION: Stable postsurgical changes of the distal first phalanx and distal fifth metatarsal. There is soft tissue swelling present. There are no acute osseous abnormalities. There has been no change from the reference exam. Electronically Signed: Dylan Reynoso MD at 23:30 EDT , Tibia/Fibula X-Ray 10/06/22 23:00 IMPRESSION: Negative left tibia and fibula x-ray. Electronically Signed: Dylan Reynoso MD at 23:30 EDT , Treatment and Re-Evaluation :: X-ray of the left tib-fib per my interpretation reveals no evidence of fracture or acute bony abnormality. Radiology interpretation is reviewed and agrees. Left foot x-ray per my interpretation reveals chronic postsurgical changes with no evidence of subcu air or obvious bony infection. Radiology interpretation is reviewed. Venous ultrasound reveals no evidence of DVT. Test results discussed with patient. She may have pulled some scar tissue or had a contusion when she fell a few days ago. At this time I see no evidence of acute fracture, DVT, or infection. I will write her a few oxycodone for pain. She has appointment with her child and family counselor early next week. Discharge Plan Triage Chief Complaint: Lower Extremity Injury ED Provider: Taya Wong Dx/Rx/DC Orders Clinical Impression: Contusion of left leg Instructions: ED Contusion, Lower Extremity Prescriptions: New oxycodone 5 mg tablet 5 mg PO Q6H PRN (Reason: pain) 3 Days Qty: 10 0RF No Action atorvastatin 80 mg tablet 80 mg PO DAILY Label Comments: Take 1 tablet by mouth once daily. (DME) pen needle, diabetic [BD Ultra-Fine Hope Pen Needle] 32 gauge x 5/32 needle See Rx Instructions .ROUTE .MEDSUPPLY Qty: 400 6RF Rx Instructions: 4x/day insulin glargine [Lantus Solostar U-100 Insulin] 100 unit/mL (3 mL) insulin pen 33 unit SC QHS Qty: 30 1RF (DME) pen needle, diabetic [BD Ultra-Fine Hope Pen Needle] 32 gauge x 5/32 needle See Rx Instructions .ROUTE .MEDSUPPLY Qty: 350 1RF Rx Instructions: 4 times daily furosemide 20 MG tablet 20 mg PO 2200 Hold Instructions: Resume on 11/24/21. Rx Instructions: 20 mg in the evening furosemide 40 MG tablet 40 mg PO BREAKFAST Hold Instructions: Resume on 11/24/21. oxybutynin chloride 15 mg tablet extended release 24hr 15 mg PO DAILY acetaminophen 500 MG tablet 1,000 mg PO TID PRN PRN (Reason: Pain Or Fever) trazodone 100 mg tablet 100 mg PO QHS Label Comments: Take 1 tablet by mouth daily at bedtime. phenazopyridine [Pyridium] 200 MG tablet 200 mg PO BID PRN PRN (Reason: Pain) glimepiride 2 mg tablet 2 mg PO BID Qty: 180 3RF Rx Instructions: Hold if glucose less than 130 mg/dl propranolol 10 MG tablet 5 mg PO BID Qty: 30 0RF Rx Instructions: Hold for heart less than 60 or systolic blood pressure less than 100 mmHg. lisinopril 5 mg tablet 2.5 mg PO DAILY Qty: 90 3RF Rx Instructions: Hold for SBP less than 130 mmHg ondansetron 4 mg tablet,disintegrating 4 mg PO Q6H PRN (Reason: nausea and vomiting) Qty: 7 0RF enoxaparin 40 mg/0.4 mL syringe 40 mg subcut DAILY Qty: 12 0RF linezolid 600 mg tablet 600 mg PO Q12H Qty: 14 0RF ciprofloxacin HCl [Cipro] 500 mg tablet 500 mg PO BID Qty: 20 0RF sulfamethoxazole-trimethoprim [Bactrim DS] 800-160 mg tablet 1 tab PO BID 7 Days Qty: 14 0RF insulin lispro [Humalog KwikPen Insulin] 100 unit/mL insulin pen 15 unit subcut TID MDD 60 Qty: 21 5RF Rx Instructions: 180-220 +4 221-260 +6 261-300 8 >300 +10 Primary Care Provider: Will Shukla Referrals: Nemesio Wing DPM [Med Staff - Active Staff] - Keep Mireya appointment Will Shukla MD [Primary Care Provider] - Disposition Disposition: Home, Self Care
--- NOTE | 2022-10-06 22:57 | US_ITS ---
EXAM: US DUPLEX LEFT LOWER EXTREMITY VEINS CLINICAL INDICATION: LT LEG PAIN TECHNIQUE: Real-time duplex ultrasound scan of the left lower extremity veins integrating B-mode two-dimensional vascular structure, Doppler spectral analysis, color flow Doppler imaging and compression. COMPARISON: No relevant prior studies available. FINDINGS: DEEP VEINS: Unremarkable. No DVT in the visualized common femoral, femoral, proximal deep femoral or popliteal veins. The veins demonstrate normal color flow, are normally compressible, with normal phasic flow and/or augmentation response. SUPERFICIAL VEINS: Unremarkable. No thrombus in the visualized great saphenous vein. SOFT TISSUES: No acute findings. No popliteal cyst. US/Venous Duplex Imag/Limited/Uni IMPRESSION: Normal left lower extremity duplex venous ultrasound. Electronically Signed: Dylan Reynoso MD at 23:55 EDT ,
--- NOTE | 2022-10-06 23:00 | RAD_ITS ---
EXAM: XR LEFT TIBIA AND FIBULA, 1 VIEW CLINICAL INDICATION: pain TECHNIQUE: Frontal or lateral views of the left tibia and fibula. COMPARISON: No relevant prior studies available. FINDINGS: BONES/JOINTS: Unremarkable. No acute fracture. No dislocation. SOFT TISSUES: Unremarkable. No radiopaque foreign body. RAD/Tibia & Fibula 2 Views IMPRESSION: Negative left tibia and fibula x-ray. Electronically Signed: Dylan Reynoso MD at 23:30 EDT ,
--- NOTE | 2022-10-06 23:00 | RAD_ITS ---
EXAM: XR LEFT FOOT COMPLETE, 3 OR MORE VIEWS CLINICAL INDICATION: pain TECHNIQUE: Frontal, lateral and oblique views of the left foot. COMPARISON: 08/16/2022 FINDINGS: BONES/JOINTS: There are postsurgical changes in the distal fifth metatarsal which are stable. There has also been amputation of the distal first phalanx which is stable. No acute fracture. No subluxation. Normal alignment. Preservation of the joint space. No sclerotic or destructive changes observed. SOFT TISSUES: There is soft tissue swelling over the dorsum of the foot. No radiopaque foreign body. RAD/Foot min 3 Views IMPRESSION: Stable postsurgical changes of the distal first phalanx and distal fifth metatarsal. There is soft tissue swelling present. There are no acute osseous abnormalities. There has been no change from the reference exam. Electronically Signed: Dylan Reynoso MD at 23:30 EDT ,
[2022-10-06] MEDS: oxyCODONE 5 MG Tablet PO (23:10)
[2022-10-06 23:39] VITALS: BP 134/75; PULSE 62; RESP 15; O2SAT 97
== END 2022-10-06 23:40 | disposition home or self-care (01) ==
PROVIDERS: Emergency Provider Emergency Medicine; PCP Family Medicine; Visit Provider Emergency Medicine
DX: S80.12XA Contusion of left lower leg, initial encounter (principal); E11.22 Type 2 diabetes mellitus with diabetic chronic kidney disease; E11.42 Type 2 diabetes mellitus with diabetic polyneuropathy; Z79.4 Long term (current) use of insulin; E78.5 Hyperlipidemia, unspecified; N18.9 Chronic kidney disease, unspecified; I12.9 Hypertensive chronic kidney disease with stage 1 through stage 4 chronic kidney disease, or unspecified chronic kidney disease; W19.XXXA Unspecified fall, initial encounter; F32.A Depression, unspecified; Z79.899 Other long term (current) drug therapy
CPT/HCPCS: 73590; 73630; 93971; 99283

== ENCOUNTER 2022-10-15 12:57 | Emergency (ER) | payer MEDICARE, MEDICAID, SELFPAY ==
[2022-10-15 12:57] VITALS: BP 164/113; PULSE 86; RESP 18; TEMP 36.3; O2SAT 99
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
--- NOTE | 2022-10-15 13:17 | RAD_ITS ---
INDICATION: pain EXAMINATION/TECHNIQUE: X-RAY - RIGHT XR Shoulder Min 2 Views 2 VIEWS COMPARISON: CT of the chest dated October 15, 2022 FINDINGS: SOFT TISSUES: No soft tissue swelling or gas. No radiopaque foreign body. BONES/JOINTS: No acute fracture or subluxation.. Normal alignment. Preservation of the joint space.. No sclerotic or destructive changes observed. RAD/Shoulder min 2 Views IMPRESSION: Negative. Electronically Signed: Su Mcadams MD at 14:45 EDT ,
--- NOTE | 2022-10-15 13:17 | RAD_ITS ---
INDICATION: pain EXAMINATION/TECHNIQUE: X-RAY - RIGHT XR Elbow Min 3 Views COMPARISON: None. FINDINGS: SOFT TISSUES: No soft tissue swelling or gas. No radiopaque foreign body. BONES/JOINTS: There is no displacement of the anterior or posterior fat pads. No acute fracture or subluxation. Normal alignment. Preservation of the joint space. No sclerotic or destructive changes observed. RAD/Elbow min 3 Views IMPRESSION: Negative. Electronically Signed: Su Mcadams MD at 14:53 EDT ,
--- NOTE | 2022-10-15 13:35 | RAD_ITS ---
INDICATION: PAIN EXAMINATION/TECHNIQUE: X-RAY - LEFT XR Elbow Min 3 Views COMPARISON: None. FINDINGS: SOFT TISSUES: No soft tissue swelling or gas. No radiopaque foreign body. BONES/JOINTS: There is no displacement of the anterior or posterior fat pads. No acute fracture or subluxation. Normal alignment. Preservation of the joint space. No sclerotic or destructive changes observed. RAD/Elbow min 3 Views IMPRESSION: Negative. Electronically Signed: Su Mcadams MD at 14:54 EDT ,
[2022-10-15] MEDS: Morphine 4 MG/ML Syringe IV (13:38)
[2022-10-15] MEDS: Ondansetron 4 MG/2 ML Vial IV (13:38)
[2022-10-15 13:39] LABS: Absolute Neutrophil Count 7.8 X10^3/uL (2.0-7.7); Basophil# 0.08 X10^3/uL; Basophil% 0.7 % (0-1); Eosinophil# 0.13 X10^3/uL; Eosinophils% 1.1 % (0-5); Hematocrit 39.5 % (37-47); Hemoglobin 13.1 g/dL (12.0-15.0); Lymphocyte % 23.5 % (19-41); Mean Corp Hgb Conc 33.2 g/dL (32-36); Mean Corpuscular Hgb 28.8 pg (27.0-32.0); Mean Corpuscular Volume 86.8 fL (81-99); Mean Platelet Vol. 10.5 fl (6.2-12.0); Monocyte# 0.93 X10^3/uL; Monocyte% 7.8 % (0-10); NRBC Flagged by Analyzer 0 % (0-5); Neutrophil # 7.82 X10^3/uL (2.7-7.7); Neutrophil % 65.7 % (47-70); Platelet Count 271 K/mm3 (150-450); RBC Distribution Width CV 14.1 % (11.6-14.6); Red Blood Count 4.55 M/mm3 (4.2-5.4); White Blood Count 11.9 K/mm3 (4.4-11.0)
[2022-10-15 13:43] VITALS: BMI 39.2
[2022-10-15 13:56] LABS: ALB/GLOB Ratio 0.7 RATIO (0.9-2.4); AST(SGOT) 18 U/L (15-37); Alanine Aminotransfer ALT/SGPT 29 U/L (13-56); Albumin, Serum 3.5 g/dL (3.2-5.0); Alkaline Phosphatase 92 U/L (45-117); Anion Gap 5 (5-15); BUN 14 mg/dL (7-18); BUN/Creat Ratio 14.5 RATIO (10-20); Calcium,Total 9.5 mg/dL (8.5-10.1); Chloride 104 mmol/L (98-107); Creatinine, Serum 0.97 mg/dL (0.55-1.02); EST Glomerular Filtration Rate 68 mL/min (>60); Est Glom Filt Rate - Afr Amer 82 mL/min (>60); Estimated Creatinine Clearance 58.18 ml/min; Glucose 293 mg/dL (74-106); Lipase 41 U/L (13-75); Potassium 4.4 mmol/L (3.5-5.1); Protein, Total 8.5 g/dL (6.4-8.2); Sodium Level 135 mmol/L (136-145)
[2022-10-15 15:33] VITALS: BP 138/77; PULSE 68; RESP 15; O2SAT 98
== END 2022-10-15 15:35 | disposition home or self-care (01) ==
PROVIDERS: Emergency Provider Student in an Organized Health Care Education/Training Program; PCP Family Medicine; Visit Provider Student in an Organized Health Care Education/Training Program
DX: S40.011A Contusion of right shoulder, initial encounter (principal); E11.22 Type 2 diabetes mellitus with diabetic chronic kidney disease; E11.42 Type 2 diabetes mellitus with diabetic polyneuropathy; I12.9 Hypertensive chronic kidney disease with stage 1 through stage 4 chronic kidney disease, or unspecified chronic kidney disease; E78.5 Hyperlipidemia, unspecified; S50.02XA Contusion of left elbow, initial encounter; S50.01XA Contusion of right elbow, initial encounter; N18.9 Chronic kidney disease, unspecified; R10.9 Unspecified abdominal pain; V43.62XA Car passenger injured in collision with other type car in traffic accident, initial encounter; Y92.89 Other specified places as the place of occurrence of the external cause; Z90.49 Acquired absence of other specified parts of digestive tract
CPT/HCPCS: 70450; 71260; 72125; 73030; 73080; 74177; 80053; 83690; 85025; 96374; 96375; 99282; Q9967; J2405

== ENCOUNTER 2022-12-12 18:44 | Emergency (ER) | payer MEDICARE, MEDICAID, SELFPAY ==
[2022-12-12 18:46] VITALS: BP 180/158; PULSE 95; RESP 22; TEMP 36.2; O2SAT 94
[2022-12-12 18:47] VITALS: BMI 39.6
--- NOTE | 2022-12-12 19:05 | CT_ITS ---
EXAM: CT ABDOMEN AND PELVIS WITHOUT INTRAVENOUS CONTRAST CLINICAL INDICATION: Kidney Stone TECHNIQUE: Helically acquired images were obtained of the abdomen and pelvis without intravenous contrast. This CT exam was performed using one or more of the following dose reduction techniques: automated exposure control, adjustment of the mA and/or kV according to patient size, and/or use of iterative reconstruction technique. COMPARISON: CTA chest abdomen pelvis dated 10/15/2022 FINDINGS: LOWER THORAX: Unremarkable. Lung bases are clear. No cardiomegaly. No significant pericardial effusion. ABDOMEN: LIVER: Unremarkable. Homogeneous. GALLBLADDER AND BILE DUCTS: Unremarkable. No calcified gallstones. No gallbladder distention or wall edema. No intra- or extrahepatic biliary ductal dilation. PANCREAS: Unremarkable. No focal cystic mass. SPLEEN: Unremarkable. Normal size without focal cystic or solid mass. ADRENALS: Unremarkable. No nodules. KIDNEYS AND URETERS: Nonobstructing calyceal stone in the right kidney which is stable. There is borderline left-sided hydroureter but there is no evidence of an obstructing stone. Normal renal size and position. STOMACH AND BOWEL: There is a stable left upper quadrant colostomy. No stomach or bowel distention. No focal inflammatory change. PELVIS: APPENDIX: No evidence of acute appendicitis. BLADDER: There is a suprapubic catheter in place. REPRODUCTIVE: Unremarkable as visualized. No mass. ABDOMEN and PELVIS: INTRAPERITONEAL SPACE: Unremarkable. No ascites or other fluid collection. No free air. BONES/JOINTS: There are again findings of spina bifida lower lumbar spine are stable. No suspicious lytic or blastic abnormality. SOFT TISSUES: Unremarkable. No discrete abdominal or pelvic wall hernia. VASCULATURE: Unremarkable. Abdominal aorta is non-dilated. LYMPH NODES: Unremarkable. No enlarged lymph nodes. CT/Abdomen/Pelvis without Cont IMPRESSION: 1. Mild left-sided hydroureter with no obstructing stone is identified. There is a nonobstructing stone in the right kidney which is stable. 2. Stable left-sided colostomy and suprapubic catheter in place. Electronically Signed: Dylan Reynoso MD at 19:36 EDT ,
[2022-12-12 19:18] LABS: Mucous, Urine 0 SEEN /hpf (<or=2+)
[2022-12-12 19:30] LABS: Absolute Lymphocyte Count 3.24 X10^3/uL (0.83-4.51); Absolute Neutrophil Count 10.1 X10^3/uL (2.0-7.7); Basophil% 0.7 % (0-1); Eosinophil# 0.24 X10^3/uL; Eosinophils% 1.6 % (0-5); Hematocrit 42.6 % (37-47); Hemoglobin 13.9 g/dL (12.0-15.0); Lymphocyte # 3.24 X10^3/ul (0.83-4.51); Lymphocyte % 21.6 % (19-41); Mean Corp Hgb Conc 32.6 g/dL (32-36); Mean Corpuscular Volume 88.9 fL (81-99); Mean Platelet Vol. 11.6 fl (6.2-12.0); Monocyte# 1.23 X10^3/uL; Monocyte% 8.2 % (0-10); NRBC Flagged by Analyzer 0 % (0-5); Neutrophil # 10.08 X10^3/uL (2.7-7.7); Neutrophil % 67.3 % (47-70); Platelet Count 189 K/mm3 (150-450); RBC Distribution Width CV 14.4 % (11.6-14.6); RBC Distribution Width SD 46.5 fl (35.1-43.9); Red Blood Count 4.79 M/mm3 (4.2-5.4)
[2022-12-12] MEDS: Ondansetron 4 MG/2 ML Vial IV (19:30)
[2022-12-12] MEDS: 0.9% Normal Saline 1,000 ML 250 ML IV (19:30)
[2022-12-12] MEDS: Morphine 4 MG/ML Syringe IV (19:30)
[2022-12-12 19:35] LABS: Color, Urine Yellow (Yellow); Glucose, Dipstick 1000 mg/dl (Normal); Ketone-Dipstick Negative (Negative); Leukocyte Esterase-Dipstick 500 /ul (Negative); Nitrite-Dipstick Positive (Negative); Occult Blood-Urine 250 /ul (Negative); Protein-Dipstick 100 mg/dl (Negative); Urine Bilirubin Dipstick Negative (Negative); Urine Clarity Sl. Cloudy (Clear); Urine Urobilinogen Normal (Normal)
[2022-12-12 19:47] LABS: Internal QC Validated? YES +Cl - CLEAR BKGD; Pregnancy, Serum, hCG Quali. NEGATIVE Negative
[2022-12-12 19:54] LABS: Anion Gap 7 (5-15); BUN 9 mg/dL (7-18); BUN/Creat Ratio 9.3 RATIO (10-20); Calcium,Total 10.1 mg/dL (8.5-10.1); Chloride 103 mmol/L (98-107); Creatinine, Serum 0.97 mg/dL (0.55-1.02); EST Glomerular Filtration Rate 67 mL/min (>60); Est Glom Filt Rate - Afr Amer 81 mL/min (>60); Estimated Creatinine Clearance 57.59 ml/min; Glucose 282 mg/dL (74-106); Sodium Level 131 mmol/L (136-145)
[2022-12-12 20:01] LABS: Amorphous Sediment 1+ PHOS; Bacteria 2+ /hpf (None Seen); Red Blood Cells-Urine 10-25 SEEN /hpf (0-5); Squamous Epithelial Cells - UA 0-5 SEEN /hpf (5-10); White Blood Cells 50-100 SEEN /hpf (0-5)
--- NOTE | 2022-12-12 21:08 | EDS_ITS ---
HPI History of Present Illness Chief Complaint: Flank Pain Informant: patient and spouse/S.O. Onset/Context/Timing Onset: Today Context: Sudden Onset Timing: Intermittent (Initially intermittent now constant) Quality: Left flank pain Location: Left flank Current Severity: Severe Maximum Severity: Severe Worsened by: Uncertain Relieved by: Nothing Associated Symptoms Associated Symptoms: Nausea Narrative Narrative: Patient is a 42-year-old woman who presents with left flank pain that radiates anterior. Initially was intermittent. Now it is constant. Severe. There is a component with movement. There is also complaint of nausea. She has a suprapubic catheter. She has not been in the emergency department for flank pain for some time. She denies fever, chills night sweats. She denies any other complaints. There is no history of trauma. She states she contacted her urologist at the [facility]. There was no response and reason she presented to the emergency department. Prior similar symptoms: Yes Recent Illness/Hospitalization: No PFSH PFS Medical History Anxiety and depression Arthritis Manley's palsy Cellulitis of left lower extremity Chronic back pain Chronic nausea CKD (chronic kidney disease) Colostomy in place Constipation Delayed wound healing Depression Diabetes mellitus with diabetic polyneuropathy Diabetes mellitus, type II Diabetic foot infection Diabetic polyneuropathy Diabetic ulcer of left heel with fat layer exposed DJD (degenerative joint disease) of thoracic spine Dysthymic disorder Essential hypertension Hematochezia History of kidney stones History of migraine Hydronephrosis of right kidney Hyperglycemia Hyperlipidemia Infection of bladder catheter Insomnia Lipomeningocele Lower extremity edema Microalbuminuria Morbid obesity with BMI of 40.0-44.9, adult Neurogenic bladder Neurogenic bowel Non-compliance Non-smoker Noncompliance with diabetes treatment Normochromic normocytic anemia Open wound of left foot Panic attacks PSVT (paroxysmal supraventricular tachycardia) Sepsis Sepsis Spina bifida aperta of lumbar spine Thyroid cyst Type 2 diabetes mellitus with diabetic polyneuropathy Type 2 diabetes mellitus with foot ulcer Ulcer of left heel and midfoot with fat layer exposed Uninodular goiter Urinary tract infection Urinary tract infection UTI (urinary tract infection) UTI (urinary tract infection) Weakness Home Medications furosemide 20 mg tablet 20 mg PO 2200 fluid 08/28/18 [History Last Taken 01/18/22] furosemide 40 mg tablet 40 mg PO BREAKFAST fluid 04/05/19 [History Last Taken 01/19/22] oxybutynin chloride 15 mg tablet,extended release 24 hr 15 mg PO DAILY bladder 11/12/19 [History Last Taken 01/19/22] acetaminophen 500 mg tablet 1,000 mg PO TID PRN PRN Pain Or Fever 02/12/20 [History Last Taken 09/24/20 19:24] trazodone 100 mg tablet 100 mg PO QHS sleep 01/19/21 [History Last Taken Unknown] atorvastatin 80 mg tablet 80 mg PO DAILY cholesterol 01/29/21 [History Last Taken 01/19/22] pen needle, diabetic 32 gauge x 5/32 (BD Ultra-Fine Hope Pen Needle) #400 ea 03/05/21 [Rx Last Taken Unknown] phenazopyridine 200 mg tablet (Pyridium) 200 mg PO BID PRN PRN Pain 11/20/21 [History Last Taken Unknown] glimepiride 2 mg tablet 2 mg PO BID #180 tabs 01/21/22 [Rx Last Taken 01/19/22] lisinopril 5 mg tablet 2.5 mg (1/2 x 5 mg) PO DAILY #90 tabs 01/21/22 [Rx Last Taken 01/19/22] propranolol 10 mg tablet 5 mg (1/2 x 10 mg) PO BID heart #30 tabs 01/21/22 [Rx Last Taken 01/19/22] ondansetron 4 mg disintegrating tablet 4 mg PO Q6H PRN nausea and vomiting #7 tabs 03/22/22 [Rx Last Taken Unknown] enoxaparin 40 mg/0.4 mL subcutaneous syringe 40 mg (0.4 mL) subcut DAILY #12 mL 07/18/22 [Rx Last Taken Unknown] linezolid 600 mg tablet 600 mg PO Q12H #14 tabs 07/18/22 [Rx Last Taken Unknown] ciprofloxacin HCl 500 mg tablet (Cipro) 500 mg PO BID #20 tabs 08/16/22 [Rx Last Taken Unknown] sulfamethoxazole 800 mg-trimethoprim 160 mg tablet (Bactrim DS) 1 tab PO BID 7 days #14 tabs 08/19/22 [Rx Last Taken Unknown] insulin glargine 100 unit/mL (3 mL) subcutaneous pen (Lantus Solostar U-100 Insulin) 33 unit (0.33 mL) subcut QHS dm #30 mL 09/01/22 [Rx Last Taken Unknown] pen needle, diabetic 32 gauge x 5/32 (BD Ultra-Fine Hope Pen Needle) #350 ea 09/01/22 [Rx Last Taken Unknown] insulin lispro 100 unit/mL subcutaneous pen (Humalog KwikPen (U-100) Insulin) 15 unit (0.15 mL) subcut TID #21 mL 09/02/22 [Rx Last Taken Unknown] oxycodone 5 mg tablet 5 mg PO Q6H PRN pain 3 days #10 tabs 10/06/22 [Rx Last Taken Unknown] ciprofloxacin HCl 500 mg tablet 500 mg PO BID #14 TABLETS 12/12/22 [Rx Last Taken Unknown] Allergy/AdvReac Type Severity Reaction Status Date / Time ceftriaxone [From Rocephin] Allergy Hives Verified 12/12/22 18:48 mushroom Allergy Anaphylaxis Verified 12/12/22 18:48 peanut Allergy Anaphylaxis Verified 12/12/22 18:48 piperacillin [From Zosyn] Allergy NEEDS Verified 12/12/22 18:48 FOLLOW-UP tazobactam [From Zosyn] Allergy NEEDS Verified 12/12/22 18:48 FOLLOW-UP fentanyl AdvReac Low blood Verified 12/12/22 18:48 pressure gabapentin AdvReac Other Verified 12/12/22 18:48 Gadolinium-MRI Contrast AdvReac Vomiting Verified 12/12/22 18:48 Medium Latex, Natural Rubber AdvReac Rash Verified 12/12/22 18:48 vancomycin AdvReac Rash Verified 12/12/22 18:48 Family History Mother CVA (cerebral vascular accident) Thyroid disorder Diabetes Hypertension Heart disease Hyperlipidemia Myocardial infarction, Onset Age: 54 mother had diabetes Father Cancer skin Grandmother Cancer liver Other Arthritis Skin cancer Surgical History history insertion suprapubic catheter History of cholecystectomy History of dilation and curettage History of spinal surgery Hx of foot surgery Hx of ventral hernia repair S/P colostomy S/P thyroid biopsy (~11/06/19) Status post gastric surgery Social History household members: significant other Smoking Status: Never smoker alcohol intake: current substance use type: does not use ROS ROS ED Constitutional Constitutional ED: Denies chills, fever(s), subjective, sweats or weight loss ENT ENT ED: Denies ear pain or rhinorrhea Cardiovascular Cardiovascular: Denies chest pain, palpitations or racing heartbeat Respiratory/Chest Respiratory/Chest: Denies cough or dyspnea Gastrointestinal Gastrointestinal: Reports abdominal pain and nausea; Denies constipation, diarrhea, melena or vomiting Genitourinary Genitourinary ED: Reports hematuria; Denies dysuria or urinary frequency Musculoskeletal Musculoskeletal: Reports back pain; Denies arthralgias, myalgias or neck pain Integumentary Denies rash Neurologic Neurologic: Denies headache(s), paresthesias or weakness Hematologic/Lymphatic Hematologic/Lymphatic: Reports systems reviewed and no addt'l complaints, except as documented EXAM Physical Exam Const Vital Signs: 12/12/22 18:46 Temperature 97.1 F L Temperature Source Temporal Pulse Rate 95 Respiratory Rate 22 H Blood Pressure 180/158 H Blood Pressure Mean 165 Pulse Ox 94 Oxygen Delivery Method Room Air Positive well nourished, well developed, obese and unkempt Constitutional Narrative: Patient appears uncomfortable. Patient has pain out of proportion to tactile stimulus. General Appearance ED: unkempt and well developed; Negative for cyanotic, diaphoretic or pallor Nutritional Appearance: obese HEENT Reports moist mucous membranes HEENT Narrative: Atraumatic normocephalic. Ears normal. Nares patent. Posterior pharynx is normal. Eyes PERRL and EOMs intact bilaterally General Eye ED: Negative for pale conjunctiva or scleral icterus Neck no lymphadenopathy, supple and no JVD Chest Wall inspection of chest normal and palpation of chest normal Resp normal respiratory effort and clear to auscultation bilaterally Cardio regular rate, regular rhythm, S1 normal heart sound, S2 normal heart sound and no murmurs GI normal to inspection, nondistended, normoactive bowel sounds, non-tender, non- distended and no masses; Negative for hepatosplenomegaly Back/Spine no CVA tenderness Back/Spine Narrative: Pain out of proportion to tactile stimulus left flank area. There is no rash noted to suggest herpes varicella-zoster. Thoracic Spine / Upper Back: Negative for thoracic spinal tenderness Lumbar Spine / Lower Back: Negative for lumbar spinal tenderness Extremity normal to inspection General Extremety ED: Negative for edema or tenderness General Extremity: Negative for edema Neuro oriented x3, CN's II-XII intact bilaterally and no sensory deficits noted Sensorium / Orientation: alert Psych Appearance: unkempt Mood & Affect: anxious Skin no rashes or lesions noted, no wounds and skin turgor normal General Skin Exam: Negative for jaundice or pallor MDM MDM MDM Narrative Medical decision making narrative: Patient presents with abrupt onset of left flank pain. She does have history of kidney stones and ureteral stones. CT of the abdomen was obtained. Appropriate blood work was obtained to assess white count differential, renal function because she reports kidney disease she was treated initially with morphine and Zofran for her pain and nausea. She did not receive Toradol Lab Data Attestation: I reviewed the patient's lab results. Lab results narrative: White count is Elave aided with a normal differential. Basic metabolic panel is remarked for sodium of 131 otherwise normal. UA reveals nitrites leukoesterase glucose protein and blood. There is also 10-25 RBCs and 50-100 RBCs. There was sediment noted which was noted in the Morales tubing. There is also 2+ bacteria. Patient reports that her Morales was changed 1 to 2 weeks ago. We will send culture and place on antibiotics. She reports allergy to cephalosporin with hives. We will treat with ciprofloxacin. Labs: Laboratory Results - last 24 hr 12/12/22 19:11 WBC 15.0 H RBC 4.79 Hgb 13.9 Hct 42.6 MCV 88.9 MCH 29.0 MCHC 32.6 RDW Std Deviation 46.5 H RDW Coeff of Claude 14.4 Plt Count 189 MPV 11.6 Immature Gran % (Auto) 0.600 Neut % (Auto) 67.3 Lymph % (Auto) 21.6 [place] % (Auto) 8.2 Eos % (Auto) 1.6 Baso % (Auto) 0.7 Absolute Neuts (auto) 10.1 H Absolute Lymphs (auto) 3.24 Nucleated RBC % 0 Sodium 131 L Potassium TNP Chloride 103 Carbon Dioxide 21.0 Anion Gap 7 BUN 9 Creatinine 0.97 Estim Creat Clear Calc 57.59 Est GFR (MDRD) Af Amer 81 Est GFR (MDRD) Non-Af 67 BUN/Creatinine Ratio 9.3 L Glucose 282 H Calcium 10.1 Serum , Qual NEGATIVE Urine Color Yellow Urine Clarity Sl. Cloudy Urine pH 7.0 Ur Specific Barry 1.010 Urine Protein 100 H Urine Glucose (UA) 1000 H Urine Ketones Negative Urine Occult Blood 250 H Urine Nitrite Positive H Urine Bilirubin Negative Urine Urobilinogen Normal Ur Leukocyte Esterase 500 H Urine RBC 10-25 SEEN Urine WBC 50-100 SEEN Ur Squamous Epith Cells 0-5 SEEN Amorphous Sediment 1+ PHOS Urine Bacteria 2+ Urine Mucus 0 SEEN Radiography Diagnostic Testing: Clinical Impression(s) from Imaging Studies Abdomen/Pelvis CT 12/12/22 19:05 IMPRESSION: 1. Mild left-sided hydroureter with no obstructing stone is identified. There is a nonobstructing stone in the right kidney which is stable. 2. Stable left-sided colostomy and suprapubic catheter in place. Electronically Signed: Dylan Reynoso MD at 19:36 EDT Reading Location ID and State: [facility] / ID Tel , Service support , CAT scan was reviewed by me and the interpretation by radiologist was read. Discharge Plan Triage Chief Complaint: Flank Pain ED Provider: Dre Deal Dx/Rx/DC Orders Clinical Impression: Acute left flank pain, Urinary tract infection, Leukocytosis Instructions: UTIs Understanding, ED Flank Pain, Uncertain Cause Prescriptions: New ciprofloxacin HCl [ciprofloxacin HCl] 500 mg tablet 500 mg PO BID Qty: 14 0RF No Action atorvastatin 80 mg tablet 80 mg PO DAILY Patient Comments: Take 1 tablet by mouth once daily. (DME) pen needle, diabetic [BD Ultra-Fine Hope Pen Needle] 32 gauge x 5/32 needle See Rx Instructions .ROUTE .MEDSUPPLY Qty: 400 6RF Rx Instructions: 4x/day insulin glargine [Lantus Solostar U-100 Insulin] 100 unit/mL (3 mL) insulin pen 33 unit SC QHS Qty: 30 1RF (DME) pen needle, diabetic [BD Ultra-Fine Hope Pen Needle] 32 gauge x 5/32 needle See Rx Instructions .ROUTE .MEDSUPPLY Qty: 350 1RF Rx Instructions: 4 times daily furosemide 20 MG tablet 20 mg PO 2200 Hold Instructions: Resume on 11/24/21. Rx Instructions: 20 mg in the evening furosemide 40 MG tablet 40 mg PO BREAKFAST Hold Instructions: Resume on 11/24/21. oxybutynin chloride 15 mg tablet extended release 24hr 15 mg PO DAILY acetaminophen 500 MG tablet 1,000 mg PO TID PRN PRN (Reason: Pain Or Fever) trazodone 100 mg tablet 100 mg PO QHS Patient Comments: Take 1 tablet by mouth daily at bedtime. phenazopyridine [Pyridium] 200 MG tablet 200 mg PO BID PRN PRN (Reason: Pain) glimepiride 2 mg tablet 2 mg PO BID Qty: 180 3RF Rx Instructions: Hold if glucose less than 130 mg/dl propranolol 10 MG tablet 5 mg PO BID Qty: 30 0RF Rx Instructions: Hold for heart less than 60 or systolic blood pressure less than 100 mmHg. lisinopril 5 mg tablet 2.5 mg PO DAILY Qty: 90 3RF Rx Instructions: Hold for SBP less than 130 mmHg ondansetron 4 mg tablet,disintegrating 4 mg PO Q6H PRN (Reason: nausea and vomiting) Qty: 7 0RF enoxaparin 40 mg/0.4 mL syringe 40 mg subcut DAILY Qty: 12 0RF linezolid 600 mg tablet 600 mg PO Q12H Qty: 14 0RF ciprofloxacin HCl [Cipro] 500 mg tablet 500 mg PO BID Qty: 20 0RF sulfamethoxazole-trimethoprim [Bactrim DS] 800-160 mg tablet 1 tab PO BID 7 Days Qty: 14 0RF oxycodone 5 mg tablet 5 mg PO Q6H PRN (Reason: pain) 3 Days Qty: 10 0RF insulin lispro [Humalog KwikPen Insulin] 100 unit/mL insulin pen 15 unit subcut TID MDD 60 Qty: 21 5RF Rx Instructions: 180-220 +4 221-260 +6 261-300 8 >300 +10 Primary Care Provider: Will Shukla Referrals: Will Shukla MD [Primary Care Provider] - 3-5 Days if not improving Disposition Disposition: Home, Self Care
[2022-12-12] MEDS: Ciprofloxacin 500 MG Tablet PO (21:28)
[2022-12-12 21:31] VITALS: BP 121/60; PULSE 78; RESP 18; O2SAT 96
== END 2022-12-12 21:32 | disposition home or self-care (01) ==
PROVIDERS: Emergency Provider Emergency Medicine; PCP Family Medicine; Visit Provider Emergency Medicine
DX: R10.9 Unspecified abdominal pain (principal); Z93.3 Colostomy status; E11.22 Type 2 diabetes mellitus with diabetic chronic kidney disease; E11.42 Type 2 diabetes mellitus with diabetic polyneuropathy; Z79.4 Long term (current) use of insulin; N13.6 Pyonephrosis; N18.9 Chronic kidney disease, unspecified; D72.829 Elevated white blood cell count, unspecified; E78.5 Hyperlipidemia, unspecified; I12.9 Hypertensive chronic kidney disease with stage 1 through stage 4 chronic kidney disease, or unspecified chronic kidney disease; Z79.899 Other long term (current) drug therapy; Z90.49 Acquired absence of other specified parts of digestive tract
CPT/HCPCS: 74176; 80048; 81001; 84703; 85025; 87077; 87086; 87088; 87186; 96361; 96374; 96375; 99283; J7030; A4216; J2405

== ENCOUNTER 2022-12-28 14:19 | Outpatient (CLI) | payer MEDICARE, MEDICAID, SELFPAY | END 2022-12-28 14:20 | disposition home or self-care (01) | LOC: MEDOUTP 14:20 | PROVIDERS: PCP Family Medicine; Referring Provider Internal Medicine Infectious Disease; Visit Provider Internal Medicine Infectious Disease | DX: N39.0 Urinary tract infection, site not specified (principal) | CPT/HCPCS: 96523; A4216 ==

== ENCOUNTER 2023-01-04 14:24 | Outpatient (CLI) | payer MEDICARE, MEDICAID, SELFPAY ==
[2023-01-04 14:47] VITALS: BP 103/79; PULSE 91; RESP 16; TEMP 36.6; O2SAT 96; BMI 39.2
[2023-01-04 15:39] VITALS: BP 126/69; PULSE 77; RESP 16; TEMP 36.6; O2SAT 99
== END 2023-01-04 14:25 | disposition home or self-care (01) ==
LOC: MEDOUTP 14:24
PROVIDERS: PCP Family Medicine; Referring Provider Internal Medicine Infectious Disease; Visit Provider Internal Medicine Infectious Disease
DX: N39.0 Urinary tract infection, site not specified (principal)

== ENCOUNTER 2023-01-29 00:48 | Emergency (ER) | payer MEDICARE, MEDICAID, SELFPAY ==
[2023-01-29 00:49] VITALS: BP 152/82; PULSE 83; RESP 17; TEMP 36.2; O2SAT 98; BMI 42.0
[2023-01-29 00:53] VITALS: O2SAT 97
--- NOTE | 2023-01-29 01:04 | ED.VIS.LOWEX ---
HPI History of Present Illness HPI Narrative: Patient presents with pain in her left foot, ankle, and knee that began after a fall tonight. Patient states she fell getting out of her car tonight. Patient states she has a history of neuropathy and her left foot gave out on her. Patient describes her pain as throbbing. Patient states nothing makes it better and nothing makes it worse. Patient states she has some numbness and tingling in her left foot but this is from her neuropathy. Patient denies any weakness. Patient denies any other injuries. Chief Complaint: Fall Informant: patient Occured/Mechanism Mechanism/Context: Yes fall Onset/Context/Timing Onset: Today Context: Sudden Onset Timing: Continuous Quality of Pain: Throbbing Location: Left foot, ankle, and knee Worsened by: Nothing Relieved by: Nothing Associated Symptoms Associated Symptoms: Positive for Parasthesia; Negative for Weakness or Loss of Funtion [facility] Medical History Anxiety and depression Arthritis Manley's palsy Cellulitis of left lower extremity Chronic back pain Chronic nausea CKD (chronic kidney disease) Colostomy in place Constipation Delayed wound healing Depression Diabetes mellitus with diabetic polyneuropathy Diabetes mellitus, type II Diabetic foot infection Diabetic polyneuropathy Diabetic ulcer of left heel with fat layer exposed DJD (degenerative joint disease) of thoracic spine Dysthymic disorder Essential hypertension Hematochezia History of kidney stones History of migraine Hydronephrosis of right kidney Hyperglycemia Hyperlipidemia Infection of bladder catheter Insomnia Lipomeningocele Lower extremity edema Microalbuminuria Morbid obesity with BMI of 40.0-44.9, adult Neurogenic bladder Neurogenic bowel Non-compliance Non-smoker Noncompliance with diabetes treatment Normochromic normocytic anemia Open wound of left foot Panic attacks PSVT (paroxysmal supraventricular tachycardia) Sepsis Sepsis Spina bifida aperta of lumbar spine Thyroid cyst Type 2 diabetes mellitus with diabetic polyneuropathy Type 2 diabetes mellitus with foot ulcer Ulcer of left heel and midfoot with fat layer exposed Uninodular goiter Urinary tract infection Urinary tract infection UTI (urinary tract infection) UTI (urinary tract infection) Weakness Home Medications furosemide 20 mg tablet 20 mg PO 2200 fluid 08/28/18 [History Last Taken 01/18/22] furosemide 40 mg tablet 40 mg PO BREAKFAST fluid 04/05/19 [History Last Taken 01/19/22] oxybutynin chloride 15 mg tablet,extended release 24 hr 15 mg PO DAILY bladder 11/12/19 [History Last Taken 01/19/22] acetaminophen 500 mg tablet 1,000 mg PO TID PRN PRN Pain Or Fever 02/12/20 [History Last Taken 09/24/20 19:24] trazodone 100 mg tablet 100 mg PO QHS sleep 01/19/21 [History Last Taken Unknown] atorvastatin 80 mg tablet 80 mg PO DAILY cholesterol 01/29/21 [History Last Taken 01/19/22] pen needle, diabetic 32 gauge x 5/32 (BD Ultra-Fine Hope Pen Needle) #400 ea 03/05/21 [Rx Last Taken Unknown] phenazopyridine 200 mg tablet (Pyridium) 200 mg PO BID PRN PRN Pain 11/20/21 [History Last Taken Unknown] glimepiride 2 mg tablet 2 mg PO BID #180 tabs 01/21/22 [Rx Last Taken 01/19/22] lisinopril 5 mg tablet 2.5 mg (1/2 x 5 mg) PO DAILY #90 tabs 01/21/22 [Rx Last Taken 01/19/22] propranolol 10 mg tablet 5 mg (1/2 x 10 mg) PO BID heart #30 tabs 01/21/22 [Rx Last Taken 01/19/22] ondansetron 4 mg disintegrating tablet 4 mg PO Q6H PRN nausea and vomiting #7 tabs 03/22/22 [Rx Last Taken Unknown] insulin glargine 100 unit/mL (3 mL) subcutaneous pen (Lantus Solostar U-100 Insulin) 33 unit (0.33 mL) subcut QHS dm #30 mL 09/01/22 [Rx Last Taken Unknown] pen needle, diabetic 32 gauge x 5/32 (BD Ultra-Fine Hope Pen Needle) #350 ea 09/01/22 [Rx Last Taken Unknown] insulin lispro 100 unit/mL subcutaneous pen (Humalog KwikPen (U-100) Insulin) 15 unit (0.15 mL) subcut TID #21 mL 09/02/22 [Rx Last Taken Unknown] duloxetine 30 mg capsule,delayed release 30 mg PO DAILY 01/04/23 [History Last Taken Unknown] Allergy/AdvReac Type Severity Reaction Status Date / Time ceftriaxone [From Rocephin] Allergy Hives Verified 01/29/23 00:49 mushroom Allergy Anaphylaxis Verified 01/29/23 00:49 peanut Allergy Anaphylaxis Verified 01/29/23 00:49 piperacillin [From Zosyn] Allergy NEEDS Verified 01/29/23 00:49 FOLLOW-UP tazobactam [From Zosyn] Allergy NEEDS Verified 01/29/23 00:49 FOLLOW-UP fentanyl AdvReac Low blood Verified 01/29/23 00:49 pressure gabapentin AdvReac Other Verified 01/29/23 00:49 Gadolinium-MRI Contrast AdvReac Vomiting Verified 01/29/23 00:49 Medium Latex, Natural Rubber AdvReac Rash Verified 01/29/23 00:49 vancomycin AdvReac Rash Verified 01/29/23 00:49 Family History Mother CVA (cerebral vascular accident) Thyroid disorder Diabetes Hypertension Heart disease Hyperlipidemia Myocardial infarction, Onset Age: 54 mother had diabetes Father Cancer skin Grandmother Cancer liver Other Arthritis Skin cancer Surgical History history insertion suprapubic catheter History of cholecystectomy History of dilation and curettage History of spinal surgery Hx of foot surgery Hx of ventral hernia repair S/P colostomy S/P thyroid biopsy (~11/06/19) Status post gastric surgery Social History household members: significant other Smoking Status: Never smoker alcohol intake: current substance use type: does not use ROS ROS ED Constitutional Constitutional ED: Denies chills or fever(s) Eyes Eyes: Denies blurry vision or change in vision ENT ENT ED: Denies rhinorrhea or sore throat Cardiovascular Cardiovascular: Denies chest pain or palpitations Respiratory/Chest Respiratory/Chest: Denies cough or dyspnea Gastrointestinal Gastrointestinal: Denies nausea or vomiting Genitourinary Genitourinary ED: Denies dysuria or hematuria Musculoskeletal Musculoskeletal: Reports back pain; Denies neck pain Integumentary Denies abscess or rash Neurologic Neurologic: Denies headache(s) or weakness Allergic/Immunologic Allergic/Immunologic ED: Denies mouth swelling or urticaria EXAM Physical Exam Const Vital Signs: 01/29/23 00:49 01/29/23 00:53 Temperature 97.1 F L Temperature Source Temporal Pulse Rate 83 Respiratory Rate 17 Respiratory Effort Normal Non-Labored Respiratory Depth Normal Respiratory Pattern Normal Blood Pressure 152/82 H Blood Pressure Mean 105 Pulse Ox 98 97 Oxygen Delivery Method Room Air Room Air Positive well nourished and well developed General Appearance ED: well developed and NAD HEENT normocephalic and atraumatic Neck full ROM and supple Extremity Extremity Narrative: There is tenderness and mild edema over the left foot, left ankle, and left knee. There is no obvious deformity noted. Range of motion was limited in all motions of the left foot, left ankle, and left knee secondary to pain. Pedal pulses are equal bilaterally. Sensation was intact to light touch bilaterally in the lower extremities. Strength is 5/5 bilaterally in the lower extremities. Neuro oriented x3, CN's II-XII intact bilaterally, moves all extremities and no sensory deficits noted Sensorium / Orientation: alert Motor Exam: strength 5/5 throughout Psych mental status grossly normal MDM MDM MDM Narrative Medical decision making narrative: Differential diagnosis includes fracture, dislocation, sprain, and contusion. X-rays of the left knee will be obtained to assess for fracture or dislocation. X-rays of the left ankle will be obtained to assess for fracture and dislocation. X-rays of the left foot will be obtained to assess for fracture and dislocation. Radiography Diagnostic Testing: Clinical Impression(s) from Imaging Studies Ankle X-Ray 01/29/23 01:09 IMPRESSION: Negative. Electronically Signed: Reymundo Cespedes MD at 2:01 EDT , Knee X-Ray 01/29/23 01:09 IMPRESSION: Negative. Electronically Signed: Reymundo Cespedes MD at 2:02 EDT , Foot X-Ray 01/29/23 01:20 IMPRESSION: Stable postsurgical changes of the distal first phalanx and distal fifth metatarsal. There is soft tissue swelling present. There are no acute osseous abnormalities. There has been no change since the previous study. Electronically Signed: Reymundo Cespedes MD at 1:47 EDT , X-rays of the left ankle were obtained. There are 3 views. On my independent interpretation, there is no acute fracture. There is no dislocation. There is some mild soft tissue swelling. Radiologist also interpreted the x-rays and agrees. X-rays of the left foot were obtained. There are 3 views. On my independent interpretation, there is no acute fracture. There is no dislocation. There is some mild soft tissue swelling. Radiologist also interpreted the x-rays and agrees. X-rays of the left knee were obtained. There are 4 views. On my independent interpretation, there is no acute fracture. There is no dislocation. There is no soft tissue swelling. There is no joint effusion noted. Radiologist also interpreted the x-rays and agrees. Treatment and Re-Evaluation Narrative: Patient was advised of her findings. Patient was instructed to ice and elevate the left foot and ankle. Patient was instructed to take Tylenol or ibuprofen as needed for pain. Patient was instructed to follow-up with her primary care physician in 5 to 7 days. Patient understood and was agreeable with the plan. All questions were answered. Discharge Plan Triage Chief Complaint: Fall ED Provider: Rigo Espinal Dx/Rx/DC Orders Clinical Impression: Fall, Contusion of left knee, Left ankle sprain Instructions: ED Contusion, Lower Extremity, ED Ankle Sprain (Adult) Prescriptions: No Action atorvastatin 80 mg tablet 80 mg PO DAILY Patient Comments: Take 1 tablet by mouth once daily. (DME) pen needle, diabetic [BD Ultra-Fine Hope Pen Needle] 32 gauge x 5/32 needle See Rx Instructions .ROUTE .MEDSUPPLY Qty: 400 6RF Rx Instructions: 4x/day insulin glargine [Lantus Solostar U-100 Insulin] 100 unit/mL (3 mL) insulin pen 33 unit SC QHS Qty: 30 1RF (DME) pen needle, diabetic [BD Ultra-Fine Hope Pen Needle] 32 gauge x 5/32 needle See Rx Instructions .ROUTE .MEDSUPPLY Qty: 350 1RF Rx Instructions: 4 times daily furosemide 20 MG tablet 20 mg PO 2200 Hold Instructions: Resume on 11/24/21. Rx Instructions: 20 mg in the evening furosemide 40 MG tablet 40 mg PO BREAKFAST Hold Instructions: Resume on 11/24/21. oxybutynin chloride 15 mg tablet extended release 24hr 15 mg PO DAILY acetaminophen 500 MG tablet 1,000 mg PO TID PRN PRN (Reason: Pain Or Fever) trazodone 100 mg tablet 100 mg PO QHS Patient Comments: Take 1 tablet by mouth daily at bedtime. phenazopyridine [Pyridium] 200 MG tablet 200 mg PO BID PRN PRN (Reason: Pain) glimepiride 2 mg tablet 2 mg PO BID Qty: 180 3RF Rx Instructions: Hold if glucose less than 130 mg/dl propranolol 10 MG tablet 5 mg PO BID Qty: 30 0RF Rx Instructions: Hold for heart less than 60 or systolic blood pressure less than 100 mmHg. lisinopril 5 mg tablet 2.5 mg PO DAILY Qty: 90 3RF Rx Instructions: Hold for SBP less than 130 mmHg ondansetron 4 mg tablet,disintegrating 4 mg PO Q6H PRN (Reason: nausea and vomiting) Qty: 7 0RF duloxetine 30 mg capsule,delayed release(DR/EC) 30 mg PO DAILY Patient Comments: TAKE 1 CAPSULE BY MOUTH DAILY insulin lispro [Humalog KwikPen Insulin] 100 unit/mL insulin pen 15 unit subcut TID MDD 60 Qty: 21 5RF Rx Instructions: 180-220 +4 221-260 +6 [phone] 8 >300 +10 Primary Care Provider: Will Shukla Referrals: Will Shukla MD [Primary Care Provider] - 5-7 Days Disposition Disposition: Home, Self Care
--- NOTE | 2023-01-29 01:09 | RAD_ITS ---
INDICATION: Injury/Pain EXAMINATION/TECHNIQUE: X-RAY - LEFT XR Knee Complete 4 Views or More 4 VIEWS COMPARISON: CR Knee LeftJan 2018 FINDINGS: SOFT TISSUES: No soft tissue swelling or gas. No radiopaque foreign body. BONES/JOINTS: No acute fracture or subluxation.. Normal alignment. Preservation of the joint space.. No sclerotic or destructive changes observed. RAD/Knee 4 or More Views IMPRESSION: Negative. Electronically Signed: Reymundo Cespedes MD at 2:02 EDT ,
--- NOTE | 2023-01-29 01:09 | RAD_ITS ---
INDICATION: Injury/Pain EXAMINATION/TECHNIQUE: X-RAY - LEFT XR Ankle Min 3 Views 3 VIEWS COMPARISON: CR Foot LeftSep 3 2022 FINDINGS: SOFT TISSUES: No soft tissue swelling or gas. No radiopaque foreign body. BONES/JOINTS: No acute fracture or subluxation.. Normal alignment. Preservation of the joint space.. No sclerotic or destructive changes observed. RAD/Ankle min 3 Views IMPRESSION: Negative. Electronically Signed: Reymundo Cespedes MD at 2:01 EDT ,
--- NOTE | 2023-01-29 01:20 | RAD_ITS ---
INDICATION: Injury/Pain EXAMINATION/TECHNIQUE: X-RAY - LEFT XR Foot Min 3 Views 3 VIEWS COMPARISON: CR Foot LeftMay 11 2022 FINDINGS: BONES/JOINTS: There are postsurgical changes in the distal fifth metatarsal which are stable. There has also been amputation of the distal first phalanx which is stable. No acute fracture. No subluxation. Normal alignment. Preservation of the joint space. No sclerotic or destructive changes observed. SOFT TISSUES: There is soft tissue swelling over the dorsum of the foot. No radiopaque foreign body. RAD/Foot min 3 Views IMPRESSION: Stable postsurgical changes of the distal first phalanx and distal fifth metatarsal. There is soft tissue swelling present. There are no acute osseous abnormalities. There has been no change since the previous study. Electronically Signed: Reymundo Cespedes MD at 1:47 EDT ,
[2023-01-29] MEDS: HYDROcodone Bitartrate/Apap 5/325 Tablet PO (01:32)
== END 2023-01-29 02:36 | disposition home or self-care (01) ==
PROVIDERS: Emergency Provider Emergency Medicine; PCP Family Medicine; Visit Provider Emergency Medicine
DX: S90.02XA Contusion of left ankle, initial encounter (principal); E11.22 Type 2 diabetes mellitus with diabetic chronic kidney disease; E11.42 Type 2 diabetes mellitus with diabetic polyneuropathy; I12.9 Hypertensive chronic kidney disease with stage 1 through stage 4 chronic kidney disease, or unspecified chronic kidney disease; N18.9 Chronic kidney disease, unspecified; E78.5 Hyperlipidemia, unspecified; S93.402A Sprain of unspecified ligament of left ankle, initial encounter; V48.4XXA Person boarding or alighting a car injured in noncollision transport accident, initial encounter
CPT/HCPCS: 73564; 73610; 73630; 99283

== ENCOUNTER 2023-02-02 17:54 | Emergency (ER) | payer MEDICARE, MEDICAID, SELFPAY ==
[2023-02-02 17:56] VITALS: BP 109/80; PULSE 113; RESP 18; TEMP 36.6; O2SAT 98
[2023-02-02 19:33] LABS: Absolute Lymphocyte Count 1.73 X10^3/uL (0.83-4.51); Absolute Neutrophil Count 14.1 X10^3/uL (2.0-7.7); Basophil# 0.05 X10^3/uL; Basophil% 0.3 % (0-1); Eosinophil# 0.05 X10^3/uL; Eosinophils% 0.3 % (0-5); Hematocrit 40.8 % (37-47); Hemoglobin 13.3 g/dL (12.0-15.0); Lymphocyte # 1.73 X10^3/ul (0.83-4.51); Mean Corp Hgb Conc 32.6 g/dL (32-36); Mean Corpuscular Hgb 28.9 pg (27.0-32.0); Mean Corpuscular Volume 88.7 fL (81-99); Mean Platelet Vol. 10.4 fl (6.2-12.0); Monocyte# 1.18 X10^3/uL; Monocyte% 6.9 % (0-10); NRBC Flagged by Analyzer 0 % (0-5); Neutrophil # 14.11 X10^3/uL (2.7-7.7); Neutrophil % 81.9 % (47-70); Platelet Count 201 K/mm3 (150-450); RBC Distribution Width CV 13.4 % (11.6-14.6); RBC Distribution Width SD 43.2 fl (35.1-43.9); White Blood Count 17.2 K/mm3 (4.4-11.0)
[2023-02-02 19:48] LABS: Anion Gap 6 (5-15); BUN 14 mg/dL (7-18); BUN/Creat Ratio 13.9 RATIO (10-20); Calcium,Total 9.3 mg/dL (8.5-10.1); Chloride 103 mmol/L (98-107); Creatinine, Serum 1.01 mg/dL (0.55-1.02); EST Glomerular Filtration Rate 64 mL/min (>60); Est Glom Filt Rate - Afr Amer 78 mL/min (>60); Glucose 202 mg/dL (74-106); Sodium Level 132 mmol/L (136-145)
[2023-02-02 19:58] LABS: Lactic Acid 1.2 mmol/L (0.4-1.9)
--- NOTE | 2023-02-02 20:29 | ED.RN ---
type disk quality control supervisor checking for latex free catheters
[2023-02-02] MEDS: Ondansetron 4 MG/2 ML Vial IV (20:50)
[2023-02-02] MEDS: Morphine 4 MG/ML Syringe IV (20:51)
--- NOTE | 2023-02-02 21:43 | ED.RN ---
PHYSICIAN CHANGED SUPRAPUBIC CATHETER WITH THIS RN ASSIST
[2023-02-02 21:56] LABS: Bacteria 0 SEEN /hpf (None Seen); Mucous, Urine 0 SEEN /hpf (<or=2+)
[2023-02-02 22:06] LABS: Color, Urine Yellow (Yellow); Glucose, Dipstick Normal (Normal); Ketone-Dipstick Negative (Negative); Leukocyte Esterase-Dipstick 500 /ul (Negative); Nitrite-Dipstick Negative (Negative); Occult Blood-Urine 250 /ul (Negative); Protein-Dipstick 100 mg/dl (Negative); Specific Gravity, Urine 1.015 (1.002-1.030); Urine Bilirubin Dipstick Negative (Negative); Urine Clarity Cloudy (Clear); Urine Urobilinogen Normal (Normal)
[2023-02-02 22:10] VITALS: BP 125/80; PULSE 88; RESP 16; TEMP 37.4; O2SAT 98
[2023-02-02 22:13] LABS: Red Blood Cells-Urine 10-25 SEEN /hpf (0-5); White Blood Cells 50-100 SEEN /hpf (0-5)
[2023-02-02 22:14] LABS: Squamous Epithelial Cells - UA 0-5 SEEN /hpf (5-10)
--- NOTE | 2023-02-02 22:16 | ED.RN ---
REDNESS TO LEFT THIGH MARKED WITH SKIN MARKER
--- NOTE | 2023-02-02 22:40 | EX.ED.DYSGE1 ---
HPI History of Present Illness Chief Complaint: Dizziness Detail of Chief Complaint: Lightheadedness, nausea vomiting and flank pain Informant: patient Onset/Context/Timing Onset: Days Context: Sudden Onset Timing: Continuous and Waxes and wanes Quality: HPI narrative Location: Generalized and flank, right side Current Severity: Mild Maximum Severity: Moderate Worsened by: Nothing specific Relieved by: Nothing Associated Symptoms Associated Symptoms: Nausea Narrative Narrative: Patient is a 42-year-old woman with history of spina bifida. She has a suprapubic catheter in place. She does have history of diabetes with noncompliance, diabetic polyneuropathy, cellulitis, recurrent urinary tract infection and pyelonephritis. Patient denies fever or chills. She complains of generalized weakness and malaise. She does report nausea without vomiting or diarrhea. Patient denies headache, visual, ocular auditory symptoms. Patient has cardiac or respiratory symptoms. Patient denies paresthesia or anesthesia. Patient does have a rash that is painful distal medial left thigh. Prior similar symptoms: Yes Recent Illness/Hospitalization: Yes PFSH PFS Medical History Anxiety and depression Arthritis Manley's palsy Cellulitis of left lower extremity Chronic back pain Chronic nausea CKD (chronic kidney disease) Colostomy in place Constipation Delayed wound healing Depression Diabetes mellitus with diabetic polyneuropathy Diabetes mellitus, type II Diabetic foot infection Diabetic polyneuropathy Diabetic ulcer of left heel with fat layer exposed DJD (degenerative joint disease) of thoracic spine Dysthymic disorder Essential hypertension Hematochezia History of kidney stones History of migraine Hydronephrosis of right kidney Hyperglycemia Hyperlipidemia Infection of bladder catheter Insomnia Lipomeningocele Lower extremity edema Microalbuminuria Morbid obesity with BMI of 40.0-44.9, adult Neurogenic bladder Neurogenic bowel Non-compliance Non-smoker Noncompliance with diabetes treatment Normochromic normocytic anemia Open wound of left foot Panic attacks PSVT (paroxysmal supraventricular tachycardia) Sepsis Sepsis Spina bifida aperta of lumbar spine Thyroid cyst Type 2 diabetes mellitus with diabetic polyneuropathy Type 2 diabetes mellitus with foot ulcer Ulcer of left heel and midfoot with fat layer exposed Uninodular goiter Urinary tract infection Urinary tract infection UTI (urinary tract infection) UTI (urinary tract infection) Weakness Home Medications furosemide 20 mg tablet 20 mg PO 2200 fluid 08/28/18 [History Last Taken 01/18/22] furosemide 40 mg tablet 40 mg PO BREAKFAST fluid 04/05/19 [History Last Taken 01/19/22] oxybutynin chloride 15 mg tablet,extended release 24 hr 15 mg PO DAILY bladder 11/12/19 [History Last Taken 01/19/22] acetaminophen 500 mg tablet 1,000 mg PO TID PRN PRN Pain Or Fever 02/12/20 [History Last Taken 09/24/20 19:24] trazodone 100 mg tablet 100 mg PO QHS sleep 01/19/21 [History Last Taken Unknown] atorvastatin 80 mg tablet 80 mg PO DAILY cholesterol 01/29/21 [History Last Taken 01/19/22] pen needle, diabetic 32 gauge x 5/32 (BD Ultra-Fine Hope Pen Needle) #400 ea 03/05/21 [Rx Last Taken Unknown] phenazopyridine 200 mg tablet (Pyridium) 200 mg PO BID PRN PRN Pain 11/20/21 [History Last Taken Unknown] glimepiride 2 mg tablet 2 mg PO BID #180 tabs 01/21/22 [Rx Last Taken 01/19/22] lisinopril 5 mg tablet 2.5 mg (1/2 x 5 mg) PO DAILY #90 tabs 01/21/22 [Rx Last Taken 01/19/22] propranolol 10 mg tablet 5 mg (1/2 x 10 mg) PO BID heart #30 tabs 01/21/22 [Rx Last Taken 01/19/22] ondansetron 4 mg disintegrating tablet 4 mg PO Q6H PRN nausea and vomiting #7 tabs 03/22/22 [Rx Last Taken Unknown] insulin glargine 100 unit/mL (3 mL) subcutaneous pen (Lantus Solostar U-100 Insulin) 33 unit (0.33 mL) subcut QHS dm #30 mL 09/01/22 [Rx Last Taken Unknown] pen needle, diabetic 32 gauge x 5/32 (BD Ultra-Fine Hope Pen Needle) #350 ea 09/01/22 [Rx Last Taken Unknown] insulin lispro 100 unit/mL subcutaneous pen (Humalog KwikPen (U-100) Insulin) 15 unit (0.15 mL) subcut TID #21 mL 09/02/22 [Rx Last Taken Unknown] duloxetine 30 mg capsule,delayed release 30 mg PO DAILY 01/04/23 [History Last Taken Unknown] doxycycline monohydrate 100 mg capsule 100 mg PO BID #14 CAPSULES 02/02/23 [Rx Last Taken Unknown] nitrofurantoin monohydrate/macrocrystals 100 mg capsule 100 mg PO Q12 #14 CAPSULES 02/02/23 [Rx Last Taken Unknown] Allergy/AdvReac Type Severity Reaction Status Date / Time ceftriaxone [From Rocephin] Allergy Hives Verified 02/02/23 17:56 mushroom Allergy Anaphylaxis Verified 02/02/23 17:56 peanut Allergy Anaphylaxis Verified 02/02/23 17:56 piperacillin [From Zosyn] Allergy NEEDS Verified 02/02/23 17:56 FOLLOW-UP tazobactam [From Zosyn] Allergy NEEDS Verified 02/02/23 17:56 FOLLOW-UP fentanyl AdvReac Low blood Verified 02/02/23 17:56 pressure gabapentin AdvReac Other Verified 02/02/23 17:56 Gadolinium-MRI Contrast AdvReac Vomiting Verified 02/02/23 17:56 Medium Latex, Natural Rubber AdvReac Rash Verified 02/02/23 17:56 vancomycin AdvReac Rash Verified 02/02/23 17:56 Family History Mother CVA (cerebral vascular accident) Thyroid disorder Diabetes Hypertension Heart disease Hyperlipidemia Myocardial infarction, Onset Age: 54 mother had diabetes Father Cancer skin Grandmother Cancer liver Other Arthritis Skin cancer Surgical History history insertion suprapubic catheter History of cholecystectomy History of dilation and curettage History of spinal surgery Hx of foot surgery Hx of ventral hernia repair S/P colostomy S/P thyroid biopsy (~11/06/19) Status post gastric surgery Social History household members: significant other Smoking Status: Never smoker alcohol intake: current substance use type: does not use ROS ROS ED Constitutional Constitutional ED: Reports chills, fever(s) and subjective; Denies sweats or weight loss Eyes Eyes: Denies blurry vision, change in vision or diplopia ENT ENT ED: Denies ear pain, rhinorrhea or sore throat Cardiovascular Cardiovascular: Denies chest pain or palpitations Respiratory/Chest Respiratory/Chest: Denies cough, dyspnea or dyspnea on exertion Gastrointestinal Gastrointestinal: Denies abdominal pain, constipation, diarrhea, melena or nausea Genitourinary Genitourinary ED: Reports other Details: Patient has a suprapubic catheter in place. Musculoskeletal Musculoskeletal: Reports arthralgias and back pain; Denies myalgias or neck pain Integumentary Reports rash Neurologic Neurologic: Reports weakness; Denies headache(s) or paresthesias Endocrine Endocrinology: Reports cold intolerance and heat intolerance Hematologic/Lymphatic Hematologic/Lymphatic: Reports systems reviewed and no addt'l complaints, except as documented EXAM Physical Exam Const Vital Signs: 02/02/23 17:56 02/02/23 19:32 02/02/23 22:10 Temperature 97.9 F 99.4 F H Temperature Source Temporal Oral Pulse Rate 113 H 88 Respiratory Rate 18 16 Respiratory Effort Normal Non-Labored Respiratory Pattern Normal Blood Pressure 109/80 125/80 H Blood Pressure Mean 89 95 Pulse Ox 98 98 Oxygen Delivery Method Room Air Room Air Positive well nourished, well developed, obese and unkempt Constitutional Narrative: Patient does not appear well. General Appearance ED: unkempt and well developed; Negative for cyanotic, diaphoretic, NAD or pallor Nutritional Appearance: obese HEENT Reports dry mucous membranes HEENT Narrative: Head is normocephalic and atraumatic. Ears are normal. TMs are normal. Posterior pharynx unremarkable. Uvula is midline. Mouth ED: Yes dry mucous membranes Mouth: dry mucous membranes Eyes PERRL and EOMs intact bilaterally General Eye ED: Negative for pale conjunctiva or scleral icterus Neck no lymphadenopathy, supple and no JVD Chest Wall inspection of chest normal and palpation of chest normal Resp normal respiratory effort and clear to auscultation bilaterally Cardio regular rhythm, S1 normal heart sound, S2 normal heart sound and no murmurs Rate: tachycardic GI normal to inspection, nondistended, normoactive bowel sounds, non-distended and no masses; Negative for non-tender or hepatosplenomegaly Palpation: tender other (Around the suprapubic catheter site) Back/Spine Back/Spine Narrative: Surgical scar noted lower back due to spinal bifida General Back: CVA tenderness right Thoracic Spine / Upper Back: Negative for thoracic spinal tenderness Lumbar Spine / Lower Back: Negative for lumbar spinal tenderness Extremity Negative for normal to inspection Extremity Narrative: There is a rash that is 3 x 7 cm distal medial left thigh. The rash is erythematous warm. There is no lymphangitis. There are shoddy left inguinal lymphadenopathy noted. There is no fluctuance. General Extremety ED: Negative for tenderness Neuro oriented x3 and CN's II-XII intact bilaterally Sensorium / Orientation: alert Psych mental status grossly normal Appearance: unkempt Skin No no rashes or lesions noted, no wounds and skin turgor normal General Skin Exam: elasticity normal; Negative for jaundice or pallor MDM MDM MDM Narrative Medical decision making narrative: Differential diagnosis includes complicated cystitis, pyelonephritis, there is evidence of cellulitis. Sepsis work-up was undertaken. Will obtain CBC to assess white count differential. CBC to assess renal function and determine if patient's antibiotic doses need to be adjusted. Was obtained. Suprapubic catheter was changed by me. 18 [place] silicone Morales was placed without difficulty. Lab Data Attestation: I reviewed the patient's lab results. Lab results narrative: White count is elevated with slight shift. There is no bandemia. Patient's had elevated blood counts in the past. H&H is normal. Indices are normal. Basic metabolic panel is remarkable glucose of 202 with a normal CO2 and anion gap. Patient does have history of problems with blood sugar due to noncompliance. UA is positive for protein, occult blood and leukoesterase. Negative for nitrites. Microscopic reveals 10-25 red blood cells and 50-100 WBCs with no bacteria. This is a good specimen. Culture was sent. Patient has been afebrile during her ER course. Labs: Laboratory Results - last 24 hr 02/02/23 02/02/23 19:25 21:50 WBC 17.2 H RBC 4.60 Hgb 13.3 Hct 40.8 MCV 88.7 MCH 28.9 MCHC 32.6 RDW Std Deviation 43.2 RDW Coeff of Claude 13.4 Plt Count 201 MPV 10.4 Immature Gran % (Auto) 0.600 Neut % (Auto) 81.9 H Lymph % (Auto) 10.0 L [place] % (Auto) 6.9 Eos % (Auto) 0.3 Baso % (Auto) 0.3 Absolute Neuts (auto) 14.1 H Absolute Lymphs (auto) 1.73 Nucleated RBC % 0 Sodium 132 L Potassium 4.0 Chloride 103 Carbon Dioxide 23.0 Anion Gap 6 BUN 14 Creatinine 1.01 Est GFR (MDRD) Af Amer 78 Est GFR (MDRD) Non-Af 64 BUN/Creatinine Ratio 13.9 Glucose 202 H Lactic Acid 1.2 Calcium 9.3 Urine Color Yellow Urine Clarity Cloudy Urine pH 6.0 Ur Specific [place] 1.015 Urine Protein 100 H Urine Glucose (UA) Normal Urine Ketones Negative Urine Occult Blood 250 H Urine Nitrite Negative Urine Bilirubin Negative Urine Urobilinogen Normal Ur Leukocyte Esterase 500 H Urine RBC 10-25 SEEN Urine WBC 50-100 SEEN Ur Squamous Epith Cells 0-5 SEEN Urine Bacteria 0 SEEN Urine Mucus 0 SEEN Treatment and Re-Evaluation :: Was reevaluated. She has no vomiting. Patient was informed of results. Based on prior urine cultures and allergies and the fact that she has a cellulitis of her thigh she was placed on doxycycline which will cover strep and staph as well as MRSA, which has grown on prior cultures. She is also had E. coli that is grown that was sensitive to nitrofurantoin. She received first dose of nitrofurantoin and doxycycline in the emergency department. She was discharged home with prescription for both. Procedures Other Procedures Procedure(s): Replacement of suprapubic catheter by physician Discharge Plan Triage Chief Complaint: Dizziness ED Provider: Dre Deal Dx/Rx/DC Orders Clinical Impression: Acute right flank pain, Cellulitis of left thigh, Type 1 diabetes mellitus with hyperglycemia, Pyuria, Leukocytosis, Spina bifida Instructions: ED Cellulitis Prescriptions: New doxycycline monohydrate 100 mg capsule 100 mg PO BID Qty: 14 0RF nitrofurantoin monohyd/m-cryst [nitrofurantoin monohyd/m-cryst] 100 mg capsule 100 mg PO Q12 Qty: 14 0RF No Action atorvastatin 80 mg tablet 80 mg PO DAILY Patient Comments: Take 1 tablet by mouth once daily. (DME) pen needle, diabetic [BD Ultra-Fine Hope Pen Needle] 32 gauge x 5/32 needle See Rx Instructions .ROUTE .MEDSUPPLY Qty: 400 6RF Rx Instructions: 4x/day insulin glargine [Lantus Solostar U-100 Insulin] 100 unit/mL (3 mL) insulin pen 33 unit SC QHS Qty: 30 1RF (DME) pen needle, diabetic [BD Ultra-Fine Hope Pen Needle] 32 gauge x 5/32 needle See Rx Instructions .ROUTE .MEDSUPPLY Qty: 350 1RF Rx Instructions: 4 times daily furosemide 20 MG tablet 20 mg PO 2200 Hold Instructions: Resume on 11/24/21. Rx Instructions: 20 mg in the evening furosemide 40 MG tablet 40 mg PO BREAKFAST Hold Instructions: Resume on 11/24/21. oxybutynin chloride 15 mg tablet extended release 24hr 15 mg PO DAILY acetaminophen 500 MG tablet 1,000 mg PO TID PRN PRN (Reason: Pain Or Fever) trazodone 100 mg tablet 100 mg PO QHS Patient Comments: Take 1 tablet by mouth daily at bedtime. phenazopyridine [Pyridium] 200 MG tablet 200 mg PO BID PRN PRN (Reason: Pain) glimepiride 2 mg tablet 2 mg PO BID Qty: 180 3RF Rx Instructions: Hold if glucose less than 130 mg/dl propranolol 10 MG tablet 5 mg PO BID Qty: 30 0RF Rx Instructions: Hold for heart less than 60 or systolic blood pressure less than 100 mmHg. lisinopril 5 mg tablet 2.5 mg PO DAILY Qty: 90 3RF Rx Instructions: Hold for SBP less than 130 mmHg ondansetron 4 mg tablet,disintegrating 4 mg PO Q6H PRN (Reason: nausea and vomiting) Qty: 7 0RF duloxetine 30 mg capsule,delayed release(DR/EC) 30 mg PO DAILY Patient Comments: TAKE 1 CAPSULE BY MOUTH DAILY insulin lispro [Humalog KwikPen Insulin] 100 unit/mL insulin pen 15 unit subcut TID MDD 60 Qty: 21 5RF Rx Instructions: 180-220 +4 221-260 +6 261-300 8 >300 +10 Primary Care Provider: Will Shukla Referrals: Will Shukla MD [Primary Care Provider] - 3-5 Days Disposition Disposition: Home, Self Care
[2023-02-02] MEDS: Nitrofurantoin Macrocrystals 100 MG Capsule PO (22:47)
[2023-02-02] MEDS: Doxycycline 100 MG CAPSULE PO (22:47)
[2023-02-02 22:55] VITALS: BP 131/76; PULSE 88; RESP 16; O2SAT 97
== END 2023-02-02 22:56 | disposition home or self-care (01) ==
PROVIDERS: Emergency Provider Emergency Medicine; PCP Family Medicine; Visit Provider Emergency Medicine
DX: L03.116 Cellulitis of left lower limb (principal); Z93.3 Colostomy status; Q05.9 Spina bifida, unspecified; E10.22 Type 1 diabetes mellitus with diabetic chronic kidney disease; E10.42 Type 1 diabetes mellitus with diabetic polyneuropathy; E10.65 Type 1 diabetes mellitus with hyperglycemia; E66.01 Morbid (severe) obesity due to excess calories; Z68.41 Body mass index [BMI] 40.0-44.9, adult; Z79.4 Long term (current) use of insulin; I12.9 Hypertensive chronic kidney disease with stage 1 through stage 4 chronic kidney disease, or unspecified chronic kidney disease; N18.9 Chronic kidney disease, unspecified; E78.5 Hyperlipidemia, unspecified; D72.829 Elevated white blood cell count, unspecified; R82.81 Pyuria; R10.9 Unspecified abdominal pain; Z79.899 Other long term (current) drug therapy; F32.A Depression, unspecified; G47.00 Insomnia, unspecified; Z90.49 Acquired absence of other specified parts of digestive tract
CPT/HCPCS: 80048; 81001; 83605; 85025; 87077; 87086; 87088; 87186; 96374; 96375; 99284; J7030; A4216; J2405

== ENCOUNTER → 2023-04-13 | Outpatient (CLI) | payer MEDICARE, MEDICAID, SELFPAY ==
--- NOTE | 2023-04-13 | FLU_PTH ---
PATIENT: HEBER BAILON LOC: [facility] U#:[id number] AGE/SX: 42/F ROOM: RE04/13/[address]: Dr. Nemesio Josue MD : 1980 BED: DIS: 04/13/2023 SPEC #: [id number] RECD: 04/13/23 16:46 STATUS: KIM REMary #: [id number] EFRAIN: 04/13/23 00:[address]: Nemesio Josue DEPT: CYTOLOGY RECD BY: Mee Alexandre ENTERED: 04/14/23 09:21 SP TYPE: Fluid OTHR DR: Dr. Will Shukla MD Tissues: A - Thyroid gland, NOS B - Thyroid gland, NOS Procedures: Special Stain Group II Surgery Specimen Level IV Cytospin Fluid Cytology Other HEADER OPERATION: Fine needle aspiration, right mid thyroid PRE-OP DIAGNOSIS: Abnormal thyroid ultrasound TISSUE SUBMITTED: A - Right mid thyroid fluid, B - Right mid thyroid x12 slides DIAGNOSIS CYTOLOGY A. Fine needle aspiration, right mid thyroid nodule (cytospin and cell block): Consistent with benign follicular nodule, [place] Category II. Macrophages consistent with benign cyst contents. See comment. B. Fine needle aspiration, right mid thyroid nodule (smears): Consistent with benign follicular nodule, [place] Category II. Macrophages consistent with benign cyst contents. See comment. AM:kateryna 04/17/2023 COMMENT A & B. The [place] System for thyroid diagnostic categorization was used in the evaluation of this case. Adequate for evaluation. CYTOLOGY STUDY Slides are reviewed. CYTOLOGY GROSS A - Received is 30 ml of dark brown cloudy fluid labeled with the patient's name and and designated per the requisition as right mid thyroid. Submitted for cytology preparation including cell block. B - Received are 12 smears labeled with the patient's name and designated per the requisition as right mid thyroid. Submitted for staining. / kateryna 04/14/2023 TC:5 CPT: 70555 x2, 91347
== END | disposition home or self-care (01) ==
PROVIDERS: PCP Family Medicine; Visit Provider Surgery
DX: R94.6 Abnormal results of thyroid function studies (principal)
CPT/HCPCS: 88108; 88161; 88305; 88313

== ENCOUNTER 2023-04-20 22:49 | Emergency (ER) | payer MEDICARE, MEDICAID, SELFPAY ==
[2023-04-20 22:50] VITALS: BP 136/88; PULSE 87; RESP 18; TEMP 36.8; O2SAT 100; BMI 41.6
--- NOTE | 2023-04-20 23:16 | ED.VIS.FEGU ---
HPI HPI - Female History of Present Illness Chief Complaint: Flank Pain Informant: patient Pain Current Severity: Moderate Maximum Severity: Moderate Associated Symptoms Associated Symptoms: Negative for Dysuria Narrative Narrative: 42-year-old female history of diabetes, chronic back pain,, kidney stones with a suprapubic catheter due to neurogenic bladder. Patient states that she has had bilateral flank pain initially started on the right than the left and both since Monday. Associated nausea and vomiting. No fever. Similar episodes before when she had urinary tract infections. Prior similar symptoms: Yes Recent Illness/Hospitalization: No PFSH PFSH Medical History Anxiety and depression Arthritis Manley's palsy Cellulitis of left lower extremity Chronic back pain Chronic nausea CKD (chronic kidney disease) Colostomy in place Constipation Delayed wound healing Depression Diabetes mellitus with diabetic polyneuropathy Diabetes mellitus, type II Diabetic foot infection Diabetic polyneuropathy Diabetic ulcer of left heel with fat layer exposed DJD (degenerative joint disease) of thoracic spine Dysthymic disorder Essential hypertension Hematochezia History of kidney stones History of migraine Hydronephrosis of right kidney Hyperglycemia Hyperlipidemia Infection of bladder catheter Insomnia Lipomeningocele Lower extremity edema Microalbuminuria Morbid obesity with BMI of 40.0-44.9, adult Neurogenic bladder Neurogenic bowel Non-compliance Non-smoker Noncompliance with diabetes treatment Normochromic normocytic anemia Open wound of left foot Panic attacks PSVT (paroxysmal supraventricular tachycardia) Sepsis Sepsis Spina bifida aperta of lumbar spine Thyroid cyst Type 2 diabetes mellitus with diabetic polyneuropathy Type 2 diabetes mellitus with foot ulcer Ulcer of left heel and midfoot with fat layer exposed Uninodular goiter Urinary tract infection Urinary tract infection UTI (urinary tract infection) UTI (urinary tract infection) Weakness Home Medications furosemide 20 mg tablet 20 mg PO 2200 fluid 08/28/18 [History Last Taken 01/18/22] furosemide 40 mg tablet 40 mg PO BREAKFAST fluid 04/05/19 [History Last Taken 01/19/22] oxybutynin chloride 15 mg tablet,extended release 24 hr 15 mg PO DAILY bladder 11/12/19 [History Last Taken 01/19/22] acetaminophen 500 mg tablet 1,000 mg PO TID PRN PRN Pain Or Fever 02/12/20 [History Last Taken 09/24/20 19:24] trazodone 100 mg tablet 100 mg PO QHS sleep 01/19/21 [History Last Taken Unknown] atorvastatin 80 mg tablet 80 mg PO DAILY cholesterol 01/29/21 [History Last Taken 01/19/22] pen needle, diabetic 32 gauge x 5/32 (BD Ultra-Fine Hope Pen Needle) #400 ea 03/05/21 [Rx Last Taken Unknown] phenazopyridine 200 mg tablet (Pyridium) 200 mg PO BID PRN PRN Pain 11/20/21 [History Last Taken Unknown] glimepiride 2 mg tablet 2 mg PO BID #180 tabs 01/21/22 [Rx Last Taken 01/19/22] lisinopril 5 mg tablet 2.5 mg (1/2 x 5 mg) PO DAILY #90 tabs 01/21/22 [Rx Last Taken 01/19/22] propranolol 10 mg tablet 5 mg (1/2 x 10 mg) PO BID heart #30 tabs 01/21/22 [Rx Last Taken 01/19/22] ondansetron 4 mg disintegrating tablet 4 mg PO Q6H PRN nausea and vomiting #7 tabs 03/22/22 [Rx Last Taken Unknown] insulin glargine 100 unit/mL (3 mL) subcutaneous pen (Lantus Solostar U-100 Insulin) 33 unit (0.33 mL) subcut QHS dm #30 mL 09/01/22 [Rx Last Taken Unknown] pen needle, diabetic 32 gauge x 5/32 (BD Ultra-Fine Hope Pen Needle) #350 ea 09/01/22 [Rx Last Taken Unknown] insulin lispro 100 unit/mL subcutaneous pen (Humalog KwikPen (U-100) Insulin) 15 unit (0.15 mL) subcut TID #21 mL 09/02/22 [Rx Last Taken Unknown] duloxetine 30 mg capsule,delayed release 30 mg PO DAILY 01/04/23 [History Last Taken Unknown] doxycycline monohydrate 100 mg capsule 100 mg PO BID #14 CAPSULES 02/02/23 [Rx Last Taken Unknown] nitrofurantoin monohydrate/macrocrystals 100 mg capsule 100 mg PO Q12 #14 CAPSULES 02/02/23 [Rx Last Taken Unknown] phenazopyridine 200 mg tablet (Pyridium) 200 mg PO BID PRN PRN Pain 5 days #10 tabs 04/21/23 [Rx Last Taken Unknown] sulfamethoxazole 800 mg-trimethoprim 160 mg tablet (Bactrim DS) 1 tab PO BID 10 days #20 tabs 04/21/23 [Rx Last Taken Unknown] Allergy/AdvReac Type Severity Reaction Status Date / Time ceftriaxone [From Rocephin] Allergy Hives Verified 04/20/23 22:52 mushroom Allergy Anaphylaxis Verified 04/20/23 22:52 peanut Allergy Anaphylaxis Verified 04/20/23 22:52 piperacillin [From Zosyn] Allergy NEEDS Verified 04/20/23 22:52 FOLLOW-UP tazobactam [From Zosyn] Allergy NEEDS Verified 04/20/23 22:52 FOLLOW-UP fentanyl AdvReac Low blood Verified 04/20/23 22:52 pressure gabapentin AdvReac Other Verified 04/20/23 22:52 Gadolinium-MRI Contrast AdvReac Vomiting Verified 04/20/23 22:52 Medium Latex, Natural Rubber AdvReac Rash Verified 04/20/23 22:52 vancomycin AdvReac Rash Verified 04/20/23 22:52 Family History Mother CVA (cerebral vascular accident) Thyroid disorder Diabetes Hypertension Heart disease Hyperlipidemia Myocardial infarction, Onset Age: 54 mother had diabetes Father Cancer skin Grandmother Cancer liver Other Arthritis Skin cancer Surgical History history insertion suprapubic catheter History of cholecystectomy History of dilation and curettage History of spinal surgery Hx of foot surgery Hx of ventral hernia repair S/P colostomy S/P thyroid biopsy (~11/06/19) Status post gastric surgery Social History household members: significant other Smoking Status: Never smoker alcohol intake: current substance use type: does not use ROS ROS ED ROS Narrative Nausea and vomiting. Bilateral flank pain. Review of Systems ROS Unobtainable: Denies due to encephalopathy Constitutional Constitutional ED: Reports chills; Denies fever(s) Eyes Eyes: Denies blurry vision ENT ENT ED: Denies ear pain Cardiovascular Cardiovascular: Denies chest pain Respiratory/Chest Respiratory/Chest: Denies cough or dyspnea Gastrointestinal Gastrointestinal: Reports abdominal pain, nausea and vomiting Genitourinary Genitourinary ED: Denies dysuria Musculoskeletal Musculoskeletal: Denies arthralgias Integumentary Denies abscess Neurologic Neurologic: Denies headache(s) Psychiatric Psychiatric: Denies anxiety Endocrine Endocrinology: Denies heat intolerance Hematologic/Lymphatic Hematologic/Lymphatic: Denies easy bleeding Allergic/Immunologic Allergic/Immunologic ED: Denies mouth swelling EXAM Physical Exam Narrative Exam Narrative: 42-year-old female vital signs are stable afebrile. Flank pain. H EENT exam unremarkable. Lungs are clear equal and symmetrical. Heart regular rhythm rate about 87 no murmur. Chest wall nontender. Abdomen soft nondistended normal bowel sounds no peritoneal signs. No hernia or mass. Back nontender. Moving all 4 extremities. Nontender. Normal range of motion. She is awake and alert. Const Vital Signs: 04/20/23 22:50 04/21/23 01:23 Temperature 98.3 F Temperature Source Temporal Pulse Rate 87 Respiratory Rate 18 16 Blood Pressure 136/88 H Blood Pressure Mean 104 Pulse Ox 100 Oxygen Delivery Method Room Air Positive well nourished and well developed; Negative for cachectic, contractures or unkempt General Appearance ED: well developed and NAD; Negative for unkempt, cachectic, contractures or pallor Nutritional Appearance: Negative for cachectic HEENT Reports moist mucous membranes Negative for trauma or tenderness Eyes PERRL and EOMs intact bilaterally General Eye ED: Negative for pale conjunctiva or scleral icterus Neck no lymphadenopathy, supple and no JVD General: Negative for other Thyroid: Negative for tender Lymph Lymphatic: Negative for other Chest Wall inspection of chest normal and palpation of chest normal Chest: Negative for other Resp normal respiratory effort and clear to auscultation bilaterally Effort and Inspection: Negative for pain with movement Auscultation: Negative for rales, rhonchi or wheezes Cardio regular rate, regular rhythm, S1 normal heart sound, no murmurs and no JVD Rate: Negative for bradycardia or tachycardic GI normal to inspection, nondistended, normoactive bowel sounds, soft to palpation, non-tender, non-distended and no masses Auscultation: normoactive bowel sounds Palpation: Negative for tender, guarding or rigid Back/Spine no CVA tenderness General Back: Negative for CVA tenderness Cervical Spine: Negative for cervical spine tenderness Thoracic Spine / Upper Back: Negative for thoracic spinal tenderness Lumbar Spine / Lower Back: Negative for lumbar spinal tenderness Sacrum: Negative for other Extremity normal to inspection and full ROM General Extremety ED: Negative for edema or tenderness General Extremity: Negative for edema Neuro oriented x3 and CN's II-XII intact bilaterally Sensorium / Orientation: alert, oriented to person, oriented to place and oriented to time Motor Exam: strength 5/5 throughout Psych mental status grossly normal Appearance: Negative for unkempt Attitude: No agitated Speech: No other Mood & Affect: Negative for depressed, anxious or tearful Skin no rashes or lesions noted and no wounds General Skin Exam: Negative for jaundice or pallor Rashes: No rashes noted Trauma: Negative for other MDM MDM MDM Narrative Medical decision making narrative: 42-year-old female with flank pain. History of UTIs. She be treated with IV Zofran for nausea, Toradol for pain and screening labs along with urinalysis will be obtained. She has a chronic indwelling suprapubic catheter is high we will get the urine. Repeat exam patient is doing well at 2 AM. We discussed her test results. She will be treated for a urinary tract infection. Urine culture sent. I checked her last few cultures. They have been sensitive to Bactrim. She has no issue with that medication. She will be started on Bactrim given first dose here twice daily for 10 days. Patient is comfortable being discharged home. History & Record Review Discussion w/independent historian: Patient and Family Additional record(s) reviewed:: Prior inpatient record, Prior outpatient record, Prior ED visit and Prior labs Lab Data Attestation: I reviewed the patient's lab results. Lab results narrative: CBC shows a white count 12.4. H&H of 13 and 40. Platelets 281. Electrolytes show sodium 134. Gap of 5. Normal BUN and creatinine of 11 and 1. Glucose is elevated at 422 which is common for this patient to have poorly controlled blood sugars. Urinalysis shows positive nitrites 10-25 white cells and 2+ bacteria. A culture will be sent. This to be treated as a UTI. Labs: Laboratory Results - last 24 hr 04/20/23 23:35 WBC 12.4 H RBC 4.50 Hgb 13.1 Hct 40.1 MCV 89.1 MCH 29.1 MCHC 32.7 RDW Std Deviation 43.6 RDW Coeff of Claude 13.4 Plt Count 281 MPV 10.7 Immature Gran % (Auto) 1.000 H Neut % (Auto) 61.2 Lymph % (Auto) 26.1 [place] % (Auto) 9.3 Eos % (Auto) 1.5 Baso % (Auto) 0.9 Absolute Neuts (auto) 7.6 Absolute Lymphs (auto) 3.22 Nucleated RBC % 0 Sodium 134 L Potassium 3.8 Chloride 104 Carbon Dioxide 25.0 Anion Gap 5 BUN 11 Creatinine 1.00 Estim Creat Clear Calc 55.87 Est GFR (MDRD) Af Amer 78 Est GFR (MDRD) Non-Af 65 BUN/Creatinine Ratio 11.0 Glucose 422 H Calcium 8.8 Urine Color Yellow Urine Clarity Sl. Cloudy Urine pH 7.0 Ur Specific [place] 1.010 Urine Protein 30 H Urine Glucose (UA) 1000 H Urine Ketones Negative Urine Occult Blood 10 H Urine Nitrite Positive H Urine Bilirubin Negative Urine Urobilinogen Normal Ur Leukocyte Esterase 500 H Urine RBC 0 SEEN Urine WBC 10-25 SEEN Ur Squamous Epith Cells 0 SEEN Amorphous Sediment 2+ Urine Bacteria 2+ Urine Mucus 0 SEEN Discharge Plan Triage Chief Complaint: Flank Pain ED Provider: Kevin Barcenas Dx/Rx/DC Orders Clinical Impression: Urinary tract infection, History of suprapubic catheter, History of kidney stones, History of diabetes mellitus Instructions: ED Cystitis Female Adult Prescriptions: New sulfamethoxazole-trimethoprim [Bactrim DS] 800-160 mg tablet 1 tab PO BID 10 Days Qty: 20 0RF phenazopyridine [Pyridium] 200 mg tablet 200 mg PO BID PRN PRN (Reason: Pain) 5 Days Qty: 10 0RF No Action atorvastatin 80 mg tablet 80 mg PO DAILY Patient Comments: Take 1 tablet by mouth once daily. (DME) pen needle, diabetic [BD Ultra-Fine Hope Pen Needle] 32 gauge x 5/32 needle See Rx Instructions .ROUTE .MEDSUPPLY Qty: 400 6RF Rx Instructions: 4x/day insulin glargine [Lantus Solostar U-100 Insulin] 100 unit/mL (3 mL) insulin pen 33 unit SC QHS Qty: 30 1RF (DME) pen needle, diabetic [BD Ultra-Fine Hope Pen Needle] 32 gauge x 5/32 needle See Rx Instructions .ROUTE .MEDSUPPLY Qty: 350 1RF Rx Instructions: 4 times daily furosemide 20 MG tablet 20 mg PO 2200 Hold Instructions: Resume on 11/24/21. Rx Instructions: 20 mg in the evening furosemide 40 MG tablet 40 mg PO BREAKFAST Hold Instructions: Resume on 11/24/21. oxybutynin chloride 15 mg tablet extended release 24hr 15 mg PO DAILY acetaminophen 500 MG tablet 1,000 mg PO TID PRN PRN (Reason: Pain Or Fever) trazodone 100 mg tablet 100 mg PO QHS Patient Comments: Take 1 tablet by mouth daily at bedtime. phenazopyridine [Pyridium] 200 MG tablet 200 mg PO BID PRN PRN (Reason: Pain) glimepiride 2 mg tablet 2 mg PO BID Qty: 180 3RF Rx Instructions: Hold if glucose less than 130 mg/dl propranolol 10 MG tablet 5 mg PO BID Qty: 30 0RF Rx Instructions: Hold for heart less than 60 or systolic blood pressure less than 100 mmHg. lisinopril 5 mg tablet 2.5 mg PO DAILY Qty: 90 3RF Rx Instructions: Hold for SBP less than 130 mmHg ondansetron 4 mg tablet,disintegrating 4 mg PO Q6H PRN (Reason: nausea and vomiting) Qty: 7 0RF duloxetine 30 mg capsule,delayed release(DR/EC) 30 mg PO DAILY Patient Comments: TAKE 1 CAPSULE BY MOUTH DAILY doxycycline monohydrate 100 mg capsule 100 mg PO BID Qty: 14 0RF nitrofurantoin monohyd/m-cryst [nitrofurantoin monohyd/m-cryst] 100 mg capsule 100 mg PO Q12 Qty: 14 0RF insulin lispro [Humalog KwikPen Insulin] 100 unit/mL insulin pen 15 unit subcut TID MDD 60 Qty: 21 5RF Rx Instructions: 180-220 +4 221-260 +6 261-300 8 >300 +10 Primary Care Provider: Will Shukla Referrals: Will Shukla MD [Primary Care Provider] - 3-5 Days if not improving Activity Restrictions/Additional Instructions: Plenty of fluids and rest. Cranberry juice. Motrin and Tylenol for pain. The antibiotic Bactrim 1 pill twice a day. A urine culture was sent. Those results should be back in 48 hours. If those results do not match the antibiotic we have started you on we will notify you and change antibiotic if needed. Pyridium for bladder spasm. Disposition Disposition: Home, Self Care
[2023-04-20] MEDS: Ketorolac 30 MG/ML Syringe IV (23:32)
[2023-04-20] MEDS: Ondansetron 4 MG/2 ML Vial IV (23:32)
[2023-04-20 23:48] LABS: Mucous, Urine 0 SEEN /hpf (<or=2+); Red Blood Cells-Urine 0 SEEN /hpf (0-5); Squamous Epithelial Cells - UA 0 SEEN /hpf (5-10)
[2023-04-20 23:49] LABS: Absolute Lymphocyte Count 3.22 X10^3/uL (0.83-4.51); Absolute Neutrophil Count 7.6 X10^3/uL (2.0-7.7); Basophil# 0.11 X10^3/uL; Basophil% 0.9 % (0-1); Eosinophil# 0.18 X10^3/uL; Eosinophils% 1.5 % (0-5); Hematocrit 40.1 % (37-47); Hemoglobin 13.1 g/dL (12.0-15.0); Lymphocyte # 3.22 X10^3/ul (0.83-4.51); Lymphocyte % 26.1 % (19-41); Mean Corp Hgb Conc 32.7 g/dL (32-36); Mean Corpuscular Hgb 29.1 pg (27.0-32.0); Mean Corpuscular Volume 89.1 fL (81-99); Mean Platelet Vol. 10.7 fl (6.2-12.0); Monocyte# 1.15 X10^3/uL; Monocyte% 9.3 % (0-10); NRBC Flagged by Analyzer 0 % (0-5); Neutrophil # 7.58 X10^3/uL (2.7-7.7); Neutrophil % 61.2 % (47-70); Platelet Count 281 K/mm3 (150-450); RBC Distribution Width CV 13.4 % (11.6-14.6); RBC Distribution Width SD 43.6 fl (35.1-43.9); White Blood Count 12.4 K/mm3 (4.4-11.0)
[2023-04-20 23:50] LABS: Color, Urine Yellow (Yellow); Glucose, Dipstick 1000 mg/dl (Normal); Ketone-Dipstick Negative (Negative); Leukocyte Esterase-Dipstick 500 /ul (Negative); Nitrite-Dipstick Positive (Negative); Occult Blood-Urine 10 /ul (Negative); Protein-Dipstick 30 mg/dl (Negative); Urine Bilirubin Dipstick Negative (Negative); Urine Clarity Sl. Cloudy (Clear); Urine Urobilinogen Normal (Normal)
[2023-04-21 00:03] LABS: Anion Gap 5 (5-15); BUN 11 mg/dL (7-18); Calcium,Total 8.8 mg/dL (8.5-10.1); Chloride 104 mmol/L (98-107); EST Glomerular Filtration Rate 65 mL/min (>60); Est Glom Filt Rate - Afr Amer 78 mL/min (>60); Estimated Creatinine Clearance 55.87 ml/min; Glucose 422 mg/dL (74-106); Potassium 3.8 mmol/L (3.5-5.1); Sodium Level 134 mmol/L (136-145)
[2023-04-21 00:10] LABS: Amorphous Sediment 2+; Bacteria 2+ /hpf (None Seen); White Blood Cells 10-25 SEEN /hpf (0-5)
[2023-04-21 01:23] VITALS: RESP 16
[2023-04-21] MEDS: Smz/Tmp Ds Tablet 1 TABLET PO (02:22)
[2023-04-21] MEDS: HYDROcodone Bitartrate/Apap 5/325 Tablet PO (02:23)
[2023-04-21 02:29] VITALS: PULSE 75; RESP 18; O2SAT 97
== END 2023-04-21 02:30 | disposition home or self-care (01) ==
PROVIDERS: Emergency Provider Emergency Medicine; PCP Family Medicine; Visit Provider Emergency Medicine
DX: N39.0 Urinary tract infection, site not specified (principal); E11.22 Type 2 diabetes mellitus with diabetic chronic kidney disease; E11.42 Type 2 diabetes mellitus with diabetic polyneuropathy; R11.2 Nausea with vomiting, unspecified; I12.9 Hypertensive chronic kidney disease with stage 1 through stage 4 chronic kidney disease, or unspecified chronic kidney disease; E78.5 Hyperlipidemia, unspecified; N18.9 Chronic kidney disease, unspecified; N31.9 Neuromuscular dysfunction of bladder, unspecified; Z87.442 Personal history of urinary calculi
CPT/HCPCS: 80048; 81001; 85025; 87077; 87086; 87088; 87186; 96374; 96375; 99283; A4216; J2405

== ENCOUNTER → 2023-07-25 | Outpatient (CLI) | payer MEDICARE, MEDICAID, SELFPAY ==
--- NOTE | 2023-07-25 16:10 | RAD_ITS ---
INDICATION: LUMBAR DEGENERATIVE DISC DISEASE EXAMINATION/TECHNIQUE: X-RAY - XR Spine Lumbar Min 4 Views COMPARISON: Prior study dated: 06/29/2020 FINDINGS: VERTEBRAE: Preserved vertebral body height. No fracture. No spondylolisthesis. Preservation of the normal lumbar lordosis. Mild scoliotic curvature. No significant facet arthropathy. Postsurgical changes at the lower lumbar spine status post laminectomy. DISCS: Disc spaces are maintained. INCLUDED ABDOMEN: Included bowel gas pattern is non-obstructive. Evidence of prior ventral abdominal wall hernia repair. RAD/L/S Spine Min 4 Views IMPRESSION: No evidence of lumbar spinal fracture or spondylolisthesis. Mild scoliotic curvature. Postsurgical changes. Electronically Signed: Gt Clark MD at 7:04 EST ,
== END | disposition home or self-care (01) ==
LOC: RAD 16:05
PROVIDERS: PCP Family Medicine; Referring Provider Clinical Nurse Specialist Adult Health; Visit Provider Clinical Nurse Specialist Adult Health
DX: M51.36 Other intervertebral disc degeneration, lumbar region (principal)
CPT/HCPCS: 72110

== ENCOUNTER 2023-08-13 20:09 | Emergency (ER) | payer MEDICARE, MEDICAID, SELFPAY ==
[2023-08-13 20:09] VITALS: BP 148/105; PULSE 100; RESP 16; TEMP 36.8; O2SAT 100; BMI 41.2
[2023-08-13 20:15] VITALS: BP 143/86; PULSE 92; RESP 16; TEMP 37.1; O2SAT 97
--- NOTE | 2023-08-13 20:44 | EX.ED.DYSGE1 ---
HPI <SAVANA Card - Last Filed: 08/13/23 22:14> History of Present Illness Chief Complaint: Complaint Narrative Narrative: 42-year-old female with PMH of DM2, kidney stones with suprapubic catheter for neurogenic bladder from spina bifida states over the last few days she had bladder discomfort and yesterday her urine started to look cloudy draining from the suprapubic catheter. Today she developed nausea and bilateral low back pain. This feels like previous UTIs. She states last infection was about a month ago and she took Bactrim for few days and then got worse and was switched to Cipro. Her suprapubic catheter is changed once a month at [facility] urology and was changed 2 weeks ago[address] She sees Dr[address] Box. [facility] <SAVANA Card - Last Filed: 08/13/23 22:14> [facility] Medical History Anxiety and depression Arthritis Manley's palsy Cellulitis of left lower extremity Chronic back pain Chronic nausea CKD (chronic kidney disease) Colostomy in place Constipation Delayed wound healing Depression Diabetes mellitus with diabetic polyneuropathy Diabetes mellitus, type II Diabetic foot infection Diabetic polyneuropathy Diabetic ulcer of left heel with fat layer exposed DJD (degenerative joint disease) of thoracic spine Dysthymic disorder Essential hypertension Hematochezia History of kidney stones History of migraine Hydronephrosis of right kidney Hyperglycemia Hyperlipidemia Infection of bladder catheter Insomnia Lipomeningocele Lower extremity edema Microalbuminuria Morbid obesity with BMI of 40.0-44.9, adult Neurogenic bladder Neurogenic bowel Non-compliance Non-smoker Noncompliance with diabetes treatment Normochromic normocytic anemia Open wound of left foot Panic attacks PSVT (paroxysmal supraventricular tachycardia) Sepsis Sepsis Spina bifida aperta of lumbar spine Thyroid cyst Type 2 diabetes mellitus with diabetic polyneuropathy Type 2 diabetes mellitus with foot ulcer Ulcer of left heel and midfoot with fat layer exposed Uninodular goiter Urinary tract infection Urinary tract infection UTI (urinary tract infection) UTI (urinary tract infection) Weakness Home Medications furosemide 20 mg tablet 20 mg PO 2200 fluid 08/28/18 [History Last Taken 01/18/22] furosemide 40 mg tablet 40 mg PO BREAKFAST fluid 04/05/19 [History Last Taken 01/19/22] oxybutynin chloride 15 mg tablet,extended release 24 hr 15 mg PO DAILY bladder 11/12/19 [History Last Taken 01/19/22] acetaminophen 500 mg tablet 1,000 mg PO TID PRN PRN Pain Or Fever 02/12/20 [History Last Taken 09/24/20 19:24] trazodone 100 mg tablet 100 mg PO QHS sleep 01/19/21 [History Last Taken Unknown] atorvastatin 80 mg tablet 80 mg PO DAILY cholesterol 01/29/21 [History Last Taken 01/19/22] pen needle, diabetic 32 gauge x 5/32 (BD Ultra-Fine Hope Pen Needle) #400 ea 03/05/21 [Rx Last Taken Unknown] phenazopyridine 200 mg tablet (Pyridium) 200 mg PO BID PRN PRN Pain 11/20/21 [History Last Taken Unknown] glimepiride 2 mg tablet 2 mg PO BID #180 tabs 01/21/22 [Rx Last Taken 01/19/22] lisinopril 5 mg tablet 2.5 mg (1/2 x 5 mg) PO DAILY #90 tabs 01/21/22 [Rx Last Taken 01/19/22] propranolol 10 mg tablet 5 mg (1/2 x 10 mg) PO BID heart #30 tabs 01/21/22 [Rx Last Taken 01/19/22] ondansetron 4 mg disintegrating tablet 4 mg PO Q6H PRN nausea and vomiting #7 tabs 03/22/22 [Rx Last Taken Unknown] insulin glargine 100 unit/mL (3 mL) subcutaneous pen (Lantus Solostar U-100 Insulin) 33 unit (0.33 mL) subcut QHS dm #30 mL 09/01/22 [Rx Last Taken Unknown] pen needle, diabetic 32 gauge x 5/32 (BD Ultra-Fine Hope Pen Needle) #350 ea 09/01/22 [Rx Last Taken Unknown] insulin lispro 100 unit/mL subcutaneous pen (Humalog KwikPen (U-100) Insulin) 15 unit (0.15 mL) subcut TID #21 mL 09/02/22 [Rx Last Taken Unknown] duloxetine 30 mg capsule,delayed release 30 mg PO DAILY 01/04/23 [History Last Taken Unknown] ciprofloxacin HCl 500 mg tablet (Cipro) 500 mg PO BID 7 days #14 tabs 08/13/23 [Rx Last Taken Unknown] pregabalin 75 mg capsule 75 mg PO BID 08/13/23 [History Last Taken Unknown] Allergy/AdvReac Type Severity Reaction Status Date / Time ceftriaxone [From Rocephin] Allergy Hives Verified 08/13/23 20:11 mushroom Allergy Anaphylaxis Verified 08/13/23 20:11 peanut Allergy Anaphylaxis Verified 08/13/23 20:11 piperacillin [From Zosyn] Allergy NEEDS Verified 08/13/23 20:11 FOLLOW-UP tazobactam [From Zosyn] Allergy NEEDS Verified 08/13/23 20:11 FOLLOW-UP fentanyl AdvReac Low blood Verified 08/13/23 20:11 pressure gabapentin AdvReac Other Verified 08/13/23 20:11 Gadolinium-MRI Contrast AdvReac Vomiting Verified 08/13/23 20:11 Medium Latex, Natural Rubber AdvReac Rash Verified 08/13/23 20:11 vancomycin AdvReac Rash Verified 08/13/23 20:11 Family History Mother CVA (cerebral vascular accident) Thyroid disorder Diabetes Hypertension Heart disease Hyperlipidemia Myocardial infarction, Onset Age: 54 mother had diabetes Father Cancer skin Grandmother Cancer liver Other Arthritis Skin cancer Surgical History history insertion suprapubic catheter History of cholecystectomy History of dilation and curettage History of spinal surgery Hx of foot surgery Hx of ventral hernia repair S/P colostomy S/P thyroid biopsy (~11/06/19) Status post gastric surgery Social History household members: significant other Smoking Status: Never smoker alcohol intake: current substance use type: does not use ROS <SAVANA Card - Last Filed: 08/13/23 22:14> ROS ED ROS Narrative Constitutional: Negative for fever, chills, malaise. GI: Positive for nausea. Negative for abdominal pain, vomiting. : Negative for hematuria. EXAM <SAVANA Card - Last Filed: 08/13/23 22:14> Physical Exam Narrative Exam Narrative: CONST: Patient sitting in no acute distress. EYES: Normal inspection. NECK: Normal inspection. RESP: No respiratory distress, CTAB. CVS: Regular rate and rhythm, no murmur, no gallop. ABD: Colostomy in left lower abdomen. Soft and nontender, no guarding or rebound. Back: Normal inspection, no CVA tenderness. Old healed midline thoracolumbar surgical scar. SKIN: Color normal, no rash, warm, dry, intact. EXTREMITIES: Normal appearance, no pedal edema. NEURO: Oriented x4. PSYCH: Normal affect. Const Vital Signs: 08/13/23 20:09 08/13/23 20:15 08/13/23 20:55 Temperature 98.2 F 98.7 F 98.3 F Temperature Source Temporal Oral Oral Pulse Rate 100 92 79 Respiratory Rate 16 16 16 Blood Pressure 148/105 H 143/86 H 139/96 H Blood Pressure Mean 119 105 110 Pulse Ox 100 97 98 Oxygen Delivery Method Room Air Room Air Room Air 08/13/23 21:23 08/13/23 22:11 Temperature 98.3 F 98.2 F Temperature Source Oral Pulse Rate 77 77 Respiratory Rate 16 16 Blood Pressure 124/83 H 120/82 H Blood Pressure Mean 96 94 Pulse Ox 98 99 Oxygen Delivery Method Room Air <Dr. Nemesio Sanderson DO - Last Filed: 08/13/23 22:02> Physical Exam Const Vital Signs: 08/13/23 20:09 08/13/23 20:15 08/13/23 20:55 Temperature 98.2 F 98.7 F 98.3 F Temperature Source Temporal Oral Oral Pulse Rate 100 92 79 Respiratory Rate 16 16 16 Blood Pressure 148/105 H 143/86 H 139/96 H Blood Pressure Mean 119 105 110 Pulse Ox 100 97 98 Oxygen Delivery Method Room Air Room Air Room Air 08/13/23 21:23 08/13/23 22:11 Temperature 98.3 F 98.2 F Temperature Source Oral Pulse Rate 77 77 Respiratory Rate 16 16 Blood Pressure 124/83 H 120/82 H Blood Pressure Mean 96 94 Pulse Ox 98 99 Oxygen Delivery Method Room Air MDM <SAVANA Card - Last Filed: 08/13/23 22:14> [facility] MDM Narrative Medical decision making narrative: History gathered from: Patient and family member Differential: UTI, GILBERT Tests considered but not ordered: She does not have flank pain?just bilateral low back pain so I do not think a CT scan is indicated as I do not suspect pyelonephritis or kidney stone Patient has recurrent UTIs with indwelling suprapubic catheter. Symptoms started yesterday with cloudy urine and today has nausea and bilateral low back pain. She appears well and nontoxic. Vital signs stable. On exam her abdomen is soft and nontender. She has a colostomy and suprapubic catheter which are both intact with no signs of cellulitis or drainage from these areas. The tubing from the suprapubic catheter is cloudy with sediment. It was changed 2 weeks ago. Labs show white count of 13.4, BUN 16, creatinine 1.18. Glucose is high at 428 with no evidence of DKA. She usually runs 200?300 but higher with illness. I ordered 10 units of subcutaneous lispro and sugar is trending down. UA is consistent with UTI and was cultured. She was given IV fluids, Zofran, and Toradol. Her prior urine cultures have all had different bacteria and sensitivities. I prescribed Cipro and recommended she check her sugars frequently and follow her sliding scale to keep it controlled. She should call her urologist for a follow-up this week. Return precautions discussed. She was discharged in stable condition. I have personally performed a face to face assessment of the patient and have reviewed the QUIQUE Note. I performed a substantive portion of the visit including all aspects of the following. My peters findings include: History is 42-year-old female with a indwelling suprapubic catheter and uncontrolled diabetes presenting to the emergency room out of concern for kidney infection. Patient notes low back pain foul-smelling urine. She sees urology in [place]. She is hoping that she can get her diabetes under control so she can get the catheter removed. Treated last month with Bactrim initially and then returned and got changed to ciprofloxacin. That visit was not at this institution. No definitive fevers. Exam is no fevers. Vital signs are stable. Patient well-appearing female. Urine is very cloudy and foul-smelling. Complains of tenderness to palpation to the low back not necessarily in the CVA region Medical Decison Making white count is slightly elevated at 13 hemoglobin 13 normal white count 1.18. Urinalysis positive nitrates positive leukocyte Estrace. White count in the urine 10-25 with 3+ bacteria. Urine culture will be sent. Patient received IV fluids and insulin for elevated blood sugar of 428. Patient should follow-up with urology and her doctors. Lab Data Labs: Laboratory Results - last 24 hr 08/13/23 20:33 WBC 13.4 H RBC 4.79 Hgb 13.9 Hct 41.7 MCV 87.1 MCH 29.0 MCHC 33.3 RDW Std Deviation 41.7 RDW Coeff of Claude 13.2 Plt Count 229 MPV 11.5 Immature Gran % (Auto) 0.800 Neut % (Auto) 61.2 Lymph % (Auto) 25.4 [place] % (Auto) 10.4 H Eos % (Auto) 1.5 Baso % (Auto) 0.7 Absolute Neuts (auto) 8.2 H Absolute Lymphs (auto) 3.40 Nucleated RBC % 0 Sodium 133 L Potassium 3.7 Chloride 101 Carbon Dioxide 25.0 Anion Gap 7 BUN 16 Creatinine 1.18 H Estim Creat Clear Calc 67.62 Est GFR (MDRD) Af Amer 65 Est GFR (MDRD) Non-Af 54 L BUN/Creatinine Ratio 13.6 Glucose 428 H Calcium 9.4 Urine Color Yellow Urine Clarity Sl. Cloudy Urine pH 7.0 Ur Specific [place] 1.010 Urine Protein 100 H Urine Glucose (UA) 1000 H Urine Ketones 5 H Urine Occult Blood 25 H Urine Nitrite Positive H Urine Bilirubin Negative Urine Urobilinogen 1 H Ur Leukocyte Esterase 500 H Urine RBC 0-5 SEEN Urine WBC 10-25 SEEN Ur Squamous Epith Cells 0-5 SEEN Urine Bacteria 3+ Urine Mucus 0 SEEN <Dr. Nemesio Sanderson, DO - Last Filed: 08/13/23 22:02> [facility] Narrative Medical decision making narrative: I have personally performed a face to face assessment of the patient and have reviewed the QUIQUE Note. I performed a substantive portion of the visit including all aspects of the following. My peters findings include: History is 42-year-old female with a indwelling suprapubic catheter and uncontrolled diabetes presenting to the emergency room out of concern for kidney infection. Patient notes low back pain foul-smelling urine. She sees urology in [place]. She is hoping that she can get her diabetes under control so she can get the catheter removed. Treated last month with Bactrim initially and then returned and got changed to ciprofloxacin. That visit was not at this institution. No definitive fevers. Exam is no fevers. Vital signs are stable. Patient well-appearing female. Urine is very cloudy and foul-smelling. Complains of tenderness to palpation to the low back not necessarily in the CVA region Medical Decison Making white count is slightly elevated at 13 hemoglobin 13 normal white count 1.18. Urinalysis positive nitrates positive leukocyte Estrace. White count in the urine 10-25 with 3+ bacteria. Urine culture will be sent. Patient received IV fluids and insulin for elevated blood sugar of 428. Patient should follow-up with urology and her doctors. History & Record Review Discussion w/independent historian: Patient Additional record(s) reviewed:: Prior labs Lab Data Attestation: I reviewed the patient's lab results. Labs: Laboratory Results - last 24 hr 08/13/23 20:33 WBC 13.4 H RBC 4.79 Hgb 13.9 Hct 41.7 MCV 87.1 MCH 29.0 MCHC 33.3 RDW Std Deviation 41.7 RDW Coeff of Claude 13.2 Plt Count 229 MPV 11.5 Immature Gran % (Auto) 0.800 Neut % (Auto) 61.2 Lymph % (Auto) 25.4 [place] % (Auto) 10.4 H Eos % (Auto) 1.5 Baso % (Auto) 0.7 Absolute Neuts (auto) 8.2 H Absolute Lymphs (auto) 3.40 Nucleated RBC % 0 Sodium 133 L Potassium 3.7 Chloride 101 Carbon Dioxide 25.0 Anion Gap 7 BUN 16 Creatinine 1.18 H Estim Creat Clear Calc 67.62 Est GFR (MDRD) Af Amer 65 Est GFR (MDRD) Non-Af 54 L BUN/Creatinine Ratio 13.6 Glucose 428 H Calcium 9.4 Urine Color Yellow Urine Clarity Sl. Cloudy Urine pH 7.0 Ur Specific [place] 1.010 Urine Protein 100 H Urine Glucose (UA) 1000 H Urine Ketones 5 H Urine Occult Blood 25 H Urine Nitrite Positive H Urine Bilirubin Negative Urine Urobilinogen 1 H Ur Leukocyte Esterase 500 H Urine RBC 0-5 SEEN Urine WBC 10-25 SEEN Ur Squamous Epith Cells 0-5 SEEN Urine Bacteria 3+ Urine Mucus 0 SEEN Discharge Plan Triage Chief Complaint: Complaint ED Midlevel Provider: Makenzie Pabon ED Provider: Nemesio Sanderson Dx/Rx/DC Orders Clinical Impression: Complicated urinary tract infection, Chronic indwelling Morales catheter, Diabetes mellitus with hyperglycemia Instructions: Urinary Tract Infections in Women, Diabetes and Illness Prescriptions: New ciprofloxacin HCl [Cipro] 500 mg tablet 500 mg PO BID 7 Days Qty: 14 0RF No Action atorvastatin 80 mg tablet 80 mg PO DAILY Patient Comments: Take 1 tablet by mouth once daily. (DME) pen needle, diabetic [BD Ultra-Fine Hope Pen Needle] 32 gauge x 5/32 needle See Rx Instructions .ROUTE .MEDSUPPLY Qty: 400 6RF Rx Instructions: 4x/day insulin glargine [Lantus Solostar U-100 Insulin] 100 unit/mL (3 mL) insulin pen 33 unit SC QHS Qty: 30 1RF (DME) pen needle, diabetic [BD Ultra-Fine Hope Pen Needle] 32 gauge x 5/32 needle See Rx Instructions .ROUTE .MEDSUPPLY Qty: 350 1RF Rx Instructions: 4 times daily furosemide 20 MG tablet 20 mg PO 2200 Hold Instructions: Resume on 11/24/21. Rx Instructions: 20 mg in the evening furosemide 40 MG tablet 40 mg PO BREAKFAST Hold Instructions: Resume on 11/24/21. oxybutynin chloride 15 mg tablet extended release 24hr 15 mg PO DAILY acetaminophen 500 MG tablet 1,000 mg PO TID PRN PRN (Reason: Pain Or Fever) trazodone 100 mg tablet 100 mg PO QHS Patient Comments: Take 1 tablet by mouth daily at bedtime. phenazopyridine [Pyridium] 200 MG tablet 200 mg PO BID PRN PRN (Reason: Pain) glimepiride 2 mg tablet 2 mg PO BID Qty: 180 3RF Rx Instructions: Hold if glucose less than 130 mg/dl propranolol 10 MG tablet 5 mg PO BID Qty: 30 0RF Rx Instructions: Hold for heart less than 60 or systolic blood pressure less than 100 mmHg. lisinopril 5 mg tablet 2.5 mg PO DAILY Qty: 90 3RF Rx Instructions: Hold for SBP less than 130 mmHg ondansetron 4 mg tablet,disintegrating 4 mg PO Q6H PRN (Reason: nausea and vomiting) Qty: 7 0RF duloxetine 30 mg capsule,delayed release(DR/EC) 30 mg PO DAILY Patient Comments: TAKE 1 CAPSULE BY MOUTH DAILY pregabalin 75 mg capsule 75 mg PO BID insulin lispro [Humalog KwikPen Insulin] 100 unit/mL insulin pen 15 unit subcut TID MDD 60 Qty: 21 5RF Rx Instructions: 180-220 +4 221-260 +6 261-300 8 >300 +10 Primary Care Provider: Will Shukla Referrals: Will Shukla MD [Primary Care Provider] - Activity Restrictions/Additional Instructions: Take Cipro for the urine infection. A urine culture was sent to make sure this antibiotic will work. Call your urologist Dr. Box this week for follow-up appointment. Make sure to check your blood sugars frequently and give your insulin on a sliding scale. Disposition Disposition: Home, Self Care
[2023-08-13 20:49] LABS: Mucous, Urine 0 SEEN /hpf (<or=2+)
[2023-08-13] MEDS: 0.9% Normal Saline (1000mL) 1,000 ML 999 ML IV (20:50)
[2023-08-13] MEDS: Ketorolac 15 MG/ML Vial IV (20:50)
[2023-08-13] MEDS: Ondansetron 4 MG/2 ML Vial IV (20:50)
[2023-08-13 20:54] LABS: Absolute Neutrophil Count 8.2 X10^3/uL (2.0-7.7); Basophil% 0.7 % (0-1); Eosinophils% 1.5 % (0-5); Hematocrit 41.7 % (37-47); Hemoglobin 13.9 g/dL (12.0-15.0); Lymphocyte % 25.4 % (19-41); Mean Corp Hgb Conc 33.3 g/dL (32-36); Mean Corpuscular Volume 87.1 fL (81-99); Mean Platelet Vol. 11.5 fl (6.2-12.0); Monocyte# 1.39 X10^3/uL; Monocyte% 10.4 % (0-10); NRBC Flagged by Analyzer 0 % (0-5); Neutrophil # 8.19 X10^3/uL (2.7-7.7); Neutrophil % 61.2 % (47-70); Platelet Count 229 K/mm3 (150-450); RBC Distribution Width CV 13.2 % (11.6-14.6); RBC Distribution Width SD 41.7 fl (35.1-43.9); Red Blood Count 4.79 M/mm3 (4.2-5.4); White Blood Count 13.4 K/mm3 (4.4-11.0)
[2023-08-13 20:55] VITALS: BP 139/96; PULSE 79; RESP 16; TEMP 36.8; O2SAT 98
[2023-08-13 20:56] LABS: Color, Urine Yellow (Yellow); Glucose, Dipstick 1000 mg/dl (Normal); Ketone-Dipstick 5 mg/dl (Negative); Leukocyte Esterase-Dipstick 500 /ul (Negative); Nitrite-Dipstick Positive (Negative); Occult Blood-Urine 25 /ul (Negative); Protein-Dipstick 100 mg/dl (Negative); Urine Bilirubin Dipstick Negative (Negative); Urine Clarity Sl. Cloudy (Clear); Urine Urobilinogen 1 mg/dl (Normal)
[2023-08-13 21:03] LABS: Anion Gap 7 (5-15); BUN 16 mg/dL (7-18); BUN/Creat Ratio 13.6 RATIO (10-20); Calcium,Total 9.4 mg/dL (8.5-10.1); Chloride 101 mmol/L (98-107); Creatinine, Serum 1.18 mg/dL (0.55-1.02); EST Glomerular Filtration Rate 54 mL/min (>60); Est Glom Filt Rate - Afr Amer 65 mL/min (>60); Estimated Creatinine Clearance 67.62 ml/min; Glucose 428 mg/dL (74-106); Potassium 3.7 mmol/L (3.5-5.1); Sodium Level 133 mmol/L (136-145)
[2023-08-13 21:06] LABS: Bacteria 3+ /hpf (None Seen); White Blood Cells 10-25 SEEN /hpf (0-5)
[2023-08-13 21:07] LABS: Red Blood Cells-Urine 0-5 SEEN /hpf (0-5); Squamous Epithelial Cells - UA 0-5 SEEN /hpf (5-10)
[2023-08-13] MEDS: Insulin Lispro 100 UNIT/ML INSULN.PEN 10 UNIT SC (21:20)
[2023-08-13 21:23] VITALS: BP 124/83; PULSE 77; RESP 16; TEMP 36.8; O2SAT 98
[2023-08-13] MEDS: Ciprofloxacin 500 MG Tablet PO (21:49)
[2023-08-13 22:11] VITALS: BP 120/82; PULSE 77; RESP 16; TEMP 36.8; O2SAT 99
[2023-08-13 22:22] LABS: Bedside Glucose 330 mg/dL (74-106)
== END 2023-08-13 22:23 | disposition home or self-care (01) ==
PROVIDERS: Physician Assistant; Emergency Provider Emergency Medicine; PCP Family Medicine; Visit Provider Emergency Medicine
DX: N39.0 Urinary tract infection, site not specified (principal); Z93.3 Colostomy status; E11.65 Type 2 diabetes mellitus with hyperglycemia; E11.22 Type 2 diabetes mellitus with diabetic chronic kidney disease; Z79.4 Long term (current) use of insulin; I12.9 Hypertensive chronic kidney disease with stage 1 through stage 4 chronic kidney disease, or unspecified chronic kidney disease; N18.9 Chronic kidney disease, unspecified; E78.5 Hyperlipidemia, unspecified; Z79.899 Other long term (current) drug therapy; Z79.84 Long term (current) use of oral hypoglycemic drugs; F41.8 Other specified anxiety disorders; Z90.49 Acquired absence of other specified parts of digestive tract; Z96.0 Presence of urogenital implants
CPT/HCPCS: 80048; 81001; 82962; 85025; 87077; 87086; 87088; 87186; 96361; 96374; 96375; 99283; A4216; J2405

== ENCOUNTER 2023-10-07 13:15 | Emergency (ER) | payer MEDICARE, MEDICAID, SELFPAY ==
[2023-10-07 13:16] VITALS: BP 159/103; PULSE 75; RESP 16; TEMP 36.2; O2SAT 99; BMI 41.3
--- NOTE | 2023-10-07 13:32 | CT_ITS ---
STUDY: CT ABDOMEN AND PELVIS WITHOUT CONTRAST REASON FOR EXAM: Female, 42 years old. Diffuse abdominal pain RADIATION DOSAGE (If Supplied By Facility): CTDIvol = ( 17.94 ) mGy, DLP = ( 945.70 ) mGycm TECHNIQUE: Transaxial images were obtained from the dome of the diaphragm to the symphysis pubis without oral contrast, and without intravenous contrast. Sagittal and coronal images were reconstructed. Individualized dose optimization techniques were used for this CT. COMPARISON: 12/12/2022 FINDINGS: The visualized lung bases are unremarkable. The visualized portions of the heart are within normal limits. Normal liver. There is non-visualization of the gallbladder, which may be secondary to either contraction or a prior cholecystectomy. Normal spleen. Normal pancreas. Normal bilateral adrenal glands. No obstructive uropathy or suspicious solid renal lesion, there is a nonobstructing 4 mm stone in the right kidney Normal visualized stomach. There is an ostomy in the left upper quadrant containing multiple bowel loops but no CT evidence of inflammation or obstruction. Normal abdominal aorta. Normal inferior vena cava. Normal retroperitoneum. There is a suprapubic catheter within the bladder. Normal-appearing uterus. No suspicious cystic mass or free fluid Normal abdominal wall. Normal osseous structures. CT/Abdomen/Pelvis without Cont IMPRESSION: No suspicious solid organ abnormality, nonobstructing right nephrolithiasis Stable left lower quadrant ostomy with multiple bowel loops but no CT evidence of acute inflammation or obstruction Suprapubic catheter noted within the bladder, no complications Electronically Signed: Jarod Jaimes MD at 14:44 EDT ,
--- NOTE | 2023-10-07 13:33 | ED.VIS.FEGU ---
HPI HPI - Female History of Present Illness Chief Complaint: Complaint Detail of Chief Complaint: Left flank pain began an hour ago. Informant: patient Bleeding Issue: Negative for Vaginal bleeding Vaginal Discharge Onset: Today Associated Symptoms Associated Symptoms: Negative for Dysuria, Frequency, Urgency or Hematuria Narrative Narrative: 42-year-old female past medical history including spina bifida with prior back surgery, diabetes and history of kidney stones. Complaining of left flank pain that began an hour ago. Nausea without vomiting or diarrhea. No fever. She is a chronic indwelling suprapubic catheter. States her urine is typically cloudy. Denies any fever. She has had UTIs in the past. She is on no recent antibiotics. She has had kidney stones in the past but is never needed surgery form. Prior similar symptoms: Yes Recent Illness/Hospitalization: No PFSH PFSH Medical History Anxiety and depression Arthritis Manley's palsy Cellulitis of left lower extremity Chronic back pain Chronic nausea CKD (chronic kidney disease) Colostomy in place Constipation Delayed wound healing Depression Diabetes mellitus with diabetic polyneuropathy Diabetes mellitus, type II Diabetic foot infection Diabetic polyneuropathy Diabetic ulcer of left heel with fat layer exposed DJD (degenerative joint disease) of thoracic spine Dysthymic disorder Essential hypertension Hematochezia History of kidney stones History of migraine Hydronephrosis of right kidney Hyperglycemia Hyperlipidemia Infection of bladder catheter Insomnia Lipomeningocele Lower extremity edema Microalbuminuria Morbid obesity with BMI of 40.0-44.9, adult Neurogenic bladder Neurogenic bowel Non-compliance Non-smoker Noncompliance with diabetes treatment Normochromic normocytic anemia Open wound of left foot Panic attacks PSVT (paroxysmal supraventricular tachycardia) Sepsis Sepsis Spina bifida aperta of lumbar spine Thyroid cyst Type 2 diabetes mellitus with diabetic polyneuropathy Type 2 diabetes mellitus with foot ulcer Ulcer of left heel and midfoot with fat layer exposed Uninodular goiter Urinary tract infection Urinary tract infection UTI (urinary tract infection) UTI (urinary tract infection) Weakness Home Medications furosemide 20 mg tablet 20 mg PO 2200 fluid 08/28/18 [History Last Taken 10/06/23] furosemide 40 mg tablet 40 mg PO BREAKFAST fluid 04/05/19 [History Last Taken 10/06/23] oxybutynin chloride 15 mg tablet,extended release 24 hr 15 mg PO DAILY bladder 11/12/19 [History Last Taken 10/06/23] acetaminophen 500 mg tablet 1,000 mg PO TID PRN PRN Pain Or Fever 02/12/20 [History Last Taken 09/24/20 19:24] trazodone 100 mg tablet 100 mg PO QHS sleep 01/19/21 [History Last Taken 10/06/23] atorvastatin 80 mg tablet 80 mg PO DAILY cholesterol 01/29/21 [History Last Taken 10/06/23] pen needle, diabetic 32 gauge x 5/32 (BD Ultra-Fine Hope Pen Needle) #400 ea 03/05/21 [Rx Last Taken Unknown] phenazopyridine 200 mg tablet (Pyridium) 200 mg PO BID PRN PRN Pain 11/20/21 [History Last Taken 10/06/23] glimepiride 2 mg tablet 2 mg PO BID #180 tabs 01/21/22 [Rx Last Taken 10/06/23] lisinopril 5 mg tablet 2.5 mg (1/2 x 5 mg) PO DAILY #90 tabs 01/21/22 [Rx Last Taken 10/06/23] propranolol 10 mg tablet 5 mg (1/2 x 10 mg) PO BID heart #30 tabs 01/21/22 [Rx Last Taken 10/06/23] ondansetron 4 mg disintegrating tablet 4 mg PO Q6H PRN nausea and vomiting #7 tabs 03/22/22 [Rx Last Taken 10/06/23] insulin glargine 100 unit/mL (3 mL) subcutaneous pen (Lantus Solostar U-100 Insulin) 33 unit (0.33 mL) subcut QHS dm #30 mL 09/01/22 [Rx Last Taken 10/06/23] pen needle, diabetic 32 gauge x 5/32 (BD Ultra-Fine Hope Pen Needle) #350 ea 09/01/22 [Rx Last Taken Unknown] insulin lispro 100 unit/mL subcutaneous pen (Humalog KwikPen (U-100) Insulin) 15 unit (0.15 mL) subcut TID #21 mL 09/02/22 [Rx Last Taken 10/06/23] duloxetine 30 mg capsule,delayed release 30 mg PO DAILY 01/04/23 [History Last Taken 10/06/23] pregabalin 75 mg capsule 75 mg PO BID 08/13/23 [History Last Taken 10/06/23] Allergy/AdvReac Type Severity Reaction Status Date / Time ceftriaxone [From Rocephin] Allergy Hives Verified 10/07/23 13:18 mushroom Allergy Anaphylaxis Verified 10/07/23 13:18 peanut Allergy Anaphylaxis Verified 10/07/23 13:18 piperacillin [From Zosyn] Allergy NEEDS Verified 10/07/23 13:18 FOLLOW-UP tazobactam [From Zosyn] Allergy NEEDS Verified 10/07/23 13:18 FOLLOW-UP fentanyl AdvReac Low blood Verified 10/07/23 13:18 pressure gabapentin AdvReac Other Verified 10/07/23 13:18 Gadolinium-MRI Contrast AdvReac Vomiting Verified 10/07/23 13:18 Medium Latex, Natural Rubber AdvReac Rash Verified 10/07/23 13:18 vancomycin AdvReac Rash Verified 10/07/23 13:18 Family History Mother CVA (cerebral vascular accident) Thyroid disorder Diabetes Hypertension Heart disease Hyperlipidemia Myocardial infarction, Onset Age: 54 mother had diabetes Father Cancer skin Grandmother Cancer liver Other Arthritis Skin cancer Surgical History history insertion suprapubic catheter History of cholecystectomy History of dilation and curettage History of spinal surgery Hx of foot surgery Hx of ventral hernia repair S/P colostomy S/P thyroid biopsy (~11/06/19) Status post gastric surgery Social History household members: significant other Smoking Status: Never smoker alcohol intake: current substance use type: does not use ROS ROS ED ROS Narrative Nausea. No vomiting. No fever. Review of Systems ROS Unobtainable: Denies due to encephalopathy Constitutional Constitutional ED: Denies chills or fever(s) Eyes Eyes: Denies blurry vision Cardiovascular Cardiovascular: Denies chest pain Respiratory/Chest Respiratory/Chest: Denies cough or dyspnea Gastrointestinal Gastrointestinal: Reports nausea; Denies abdominal pain, constipation, diarrhea, melena or vomiting Genitourinary Genitourinary ED: Reports other Details: Suprapubic Morales catheter. ; Denies dysuria or hematuria Musculoskeletal Musculoskeletal: Denies arthralgias Integumentary Denies abscess Neurologic Neurologic: Denies headache(s) Psychiatric Psychiatric: Denies anxiety Endocrine Endocrinology: Denies heat intolerance Hematologic/Lymphatic Hematologic/Lymphatic: Denies easy bleeding Allergic/Immunologic Allergic/Immunologic ED: Denies mouth swelling EXAM Physical Exam Narrative Exam Narrative: Well-appearing 42-year-old female. Sitting upright in bed. Vital signs are stable afebrile. H EENT exam unremarkable. Mytrex membranes. Neck nontender. Lungs clear equal symmetrical bilaterally. Heart regular rhythm rate about 75 no murmur. Chest wall ribs nontender. Abdomen soft nondistended normal bowel sounds without peritoneal signs. She has a left-sided colostomy tube. Suprapubic Morales catheter. She moves all 4 extremities. 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 She has significant weakness in both lower extremities from her history of spina bifida. That is not new or changed. She is awake and alert. Answering questions following commands. Const Vital Signs: 10/07/23 13:16 Temperature 97.2 F L Temperature Source Temporal Pulse Rate 75 Respiratory Rate 16 Blood Pressure 159/103 H Blood Pressure Mean 121 Pulse Ox 99 Oxygen Delivery Method Room Air Positive well nourished and well developed; Negative for cachectic, contractures or unkempt General Appearance ED: well developed and NAD; Negative for unkempt, cachectic, contractures or pallor Nutritional Appearance: Negative for cachectic HEENT Reports moist mucous membranes Negative for trauma or tenderness Eyes PERRL and EOMs intact bilaterally General Eye ED: Negative for pale conjunctiva or scleral icterus Neck no lymphadenopathy, supple and no JVD General: Negative for other Thyroid: Negative for tender Lymph Lymphatic: Negative for other Chest Wall inspection of chest normal and palpation of chest normal Chest: Negative for other Resp normal respiratory effort and clear to auscultation bilaterally Effort and Inspection: Negative for pain with movement Auscultation: Negative for rales, rhonchi, wheezes or diminished lung sounds Cardio regular rate, regular rhythm, S1 normal heart sound, no murmurs and no JVD Rate: Negative for bradycardia or tachycardic Rhythm: Negative for abnormal rhythm GI normal to inspection, nondistended, normoactive bowel sounds, soft to palpation, non-tender, non-distended and no masses Auscultation: normoactive bowel sounds Palpation: Negative for tender, guarding, rigid, hepatomegaly, splenomegaly or mass Back/Spine no CVA tenderness Back/Spine Narrative: . Lumbar tenderness bilaterally. No redness or warmth or signs of trauma. General Back: Negative for CVA tenderness Cervical Spine: Negative for cervical spine tenderness Thoracic Spine / Upper Back: Negative for thoracic spinal tenderness Lumbar Spine / Lower Back: Negative for lumbar spinal tenderness Extremity Negative for normal to inspection or full ROM Extremity Narrative: Bilateral lower extremity weakness. Chronic. General Extremety ED: Negative for edema or tenderness General Extremity: Negative for edema Neuro oriented x3 and CN's II-XII intact bilaterally Sensorium / Orientation: alert, oriented to person, oriented to place and oriented to time; Negative for confused, lethargic or stuporous Motor Exam: strength abnormal Psych mental status grossly normal Appearance: Negative for unkempt Attitude: No agitated Speech: No other Mood & Affect: Negative for depressed, anxious or tearful Skin no rashes or lesions noted and no wounds General Skin Exam: Negative for jaundice or pallor Rashes: No rashes noted Trauma: Negative for other MDM MDM MDM Narrative Medical decision making narrative: 42-year-old female with prior spina bifida, diabetes and chronic indwelling Morales catheter and colostomy. Complaining of left flank pain with history of kidney stones. CAT scan labs being obtained. Treated with Zofran for nausea. Morphine for pain. Repeat exam patient is doing well at 3:20 PM. Will be discharged home. Flank pain uncertain etiology. Pain well-controlled at this time. She is comfortable being discharged. History & Record Review Discussion w/independent historian: Patient Additional record(s) reviewed:: Prior inpatient record, Prior outpatient record, Prior ED visit and Prior labs Lab Data Attestation: I reviewed the patient's lab results. Lab results narrative: CBC shows white count 9.3. H&H 13.9 and 41. Platelets 225. Chemistry shows sodium 134 gap 6. Normal BUN of 18 creatinine of 0.8. Glucose 267. Serum test negative. UA shows 5-10 red cells. 5-10 white cells. But is contaminated with 10-25 epithelial cells and 4+ bacteria. That will not be treated. CT flank showed no acute abnormalities per the radiologist. Labs: Laboratory Results - last 24 hr 10/07/23 10/07/23 13:38 13:50 WBC 11.3 H RBC 4.66 Hgb 13.9 Hct 41.7 MCV 89.5 MCH 29.8 MCHC 33.3 RDW Std Deviation 43.9 RDW Coeff of Claude 13.5 Plt Count 225 MPV 10.4 Immature Gran % (Auto) 1.300 H Neut % (Auto) 62.2 Lymph % (Auto) 26.2 [place] % (Auto) 8.4 Eos % (Auto) 1.2 Baso % (Auto) 0.7 Absolute Neuts (auto) 7.0 Absolute Lymphs (auto) 2.95 Nucleated RBC % 0 Sodium 134 L Potassium 4.0 Chloride 105 Carbon Dioxide 23.0 Anion Gap 6 BUN 18 Creatinine 0.83 Estim Creat Clear Calc 96.23 Est GFR (MDRD) Af Amer 97 Est GFR (MDRD) Non-Af 80 BUN/Creatinine Ratio 21.7 H Glucose 267 H Calcium 9.1 Serum , Qual NEGATIVE Urine Color Yellow Urine Clarity Cloudy Urine pH 6.5 Ur Specific [place] 1.020 Urine Protein 100 H Urine Glucose (UA) 1000 H Urine Ketones Negative Urine Occult Blood 50 H Urine Nitrite Negative Urine Bilirubin Negative Urine Urobilinogen Normal Ur Leukocyte Esterase 500 H Urine RBC 5-10 SEEN Urine WBC 50-100 SEEN Ur Squamous Epith Cells 10-25 SEEN Urine Bacteria 4+ Urine Mucus 0 SEEN Radiography Diagnostic Testing: Clinical Impression(s) from Imaging Studies Abdomen/Pelvis CT 10/07/23 13:32 IMPRESSION: No suspicious solid organ abnormality, nonobstructing right nephrolithiasis Stable left lower quadrant ostomy with multiple bowel loops but no CT evidence of acute inflammation or obstruction Suprapubic catheter noted within the bladder, no complications Electronically Signed: Jarod Jaimes MD at 14:44 EDT [place] Location ID and State: [facility] / [place] , Service support , Discharge Plan Triage Chief Complaint: Complaint ED Provider: Kevin Barcenas Dx/Rx/DC Orders Clinical Impression: Acute flank pain, History of spina bifida, History of renal stone, History of diabetes mellitus Instructions: ED Flank Pain, Uncertain Cause Prescriptions: No Action atorvastatin 80 mg tablet 80 mg PO DAILY Patient Comments: Take 1 tablet by mouth once daily. (DME) pen needle, diabetic [BD Ultra-Fine Hope Pen Needle] 32 gauge x 5/32 needle See Rx Instructions .ROUTE .MEDSUPPLY Qty: 400 6RF Rx Instructions: 4x/day insulin glargine [Lantus Solostar U-100 Insulin] 100 unit/mL (3 mL) insulin pen 33 unit SC QHS Qty: 30 1RF (DME) pen needle, diabetic [BD Ultra-Fine Hope Pen Needle] 32 gauge x 5/32 needle See Rx Instructions .ROUTE .MEDSUPPLY Qty: 350 1RF Rx Instructions: 4 times daily furosemide 20 MG tablet 20 mg PO 2200 Hold Instructions: Resume on 11/24/21. Rx Instructions: 20 mg in the evening furosemide 40 MG tablet 40 mg PO BREAKFAST Hold Instructions: Resume on 11/24/21. oxybutynin chloride 15 mg tablet extended release 24hr 15 mg PO DAILY acetaminophen 500 MG tablet 1,000 mg PO TID PRN PRN (Reason: Pain Or Fever) trazodone 100 mg tablet 100 mg PO QHS Patient Comments: Take 1 tablet by mouth daily at bedtime. phenazopyridine [Pyridium] 200 MG tablet 200 mg PO BID PRN PRN (Reason: Pain) glimepiride 2 mg tablet 2 mg PO BID Qty: 180 3RF Rx Instructions: Hold if glucose less than 130 mg/dl propranolol 10 MG tablet 5 mg PO BID Qty: 30 0RF Rx Instructions: Hold for heart less than 60 or systolic blood pressure less than 100 mmHg. lisinopril 5 mg tablet 2.5 mg PO DAILY Qty: 90 3RF Rx Instructions: Hold for SBP less than 130 mmHg ondansetron 4 mg tablet,disintegrating 4 mg PO Q6H PRN (Reason: nausea and vomiting) Qty: 7 0RF duloxetine 30 mg capsule,delayed release(DR/EC) 30 mg PO DAILY Patient Comments: TAKE 1 CAPSULE BY MOUTH DAILY pregabalin 75 mg capsule 75 mg PO BID insulin lispro [Humalog KwikPen Insulin] 100 unit/mL insulin pen 15 unit subcut TID MDD 60 Qty: 21 5RF Rx Instructions: 180-220 +4 221-260 +6 261-300 8 >300 +10 Primary Care Provider: Will Shukla Referrals: Will Shukla MD [Primary Care Provider] - 3-5 Days if not improving Activity Restrictions/Additional Instructions: Your CAT scan labs look good. No specific cause for your pain. Motrin and Tylenol for pain. Follow-up if not improving. Disposition Disposition: Home, Self Care
[2023-10-07] MEDS: Ondansetron 4 MG/2 ML Vial IV (13:43)
[2023-10-07] MEDS: Morphine 4 MG/ML Syringe 8 MG IV (13:43)
[2023-10-07 13:49] LABS: Absolute Lymphocyte Count 2.95 X10^3/uL (0.83-4.51); Basophil# 0.08 X10^3/uL; Basophil% 0.7 % (0-1); Eosinophil# 0.14 X10^3/uL; Eosinophils% 1.2 % (0-5); Hematocrit 41.7 % (37-47); Hemoglobin 13.9 g/dL (12.0-15.0); Lymphocyte # 2.95 X10^3/ul (0.83-4.51); Lymphocyte % 26.2 % (19-41); Mean Corp Hgb Conc 33.3 g/dL (32-36); Mean Corpuscular Hgb 29.8 pg (27.0-32.0); Mean Corpuscular Volume 89.5 fL (81-99); Mean Platelet Vol. 10.4 fl (6.2-12.0); Monocyte# 0.95 X10^3/uL; Monocyte% 8.4 % (0-10); NRBC Flagged by Analyzer 0 % (0-5); Neutrophil # 6.98 X10^3/uL (2.7-7.7); Neutrophil % 62.2 % (47-70); Platelet Count 225 K/mm3 (150-450); RBC Distribution Width CV 13.5 % (11.6-14.6); RBC Distribution Width SD 43.9 fl (35.1-43.9); Red Blood Count 4.66 M/mm3 (4.2-5.4); White Blood Count 11.3 K/mm3 (4.4-11.0)
[2023-10-07 13:59] LABS: Mucous, Urine 0 SEEN /hpf (<or=2+)
[2023-10-07 14:01] LABS: Color, Urine Yellow (Yellow); Glucose, Dipstick 1000 mg/dl (Normal); Ketone-Dipstick Negative (Negative); Leukocyte Esterase-Dipstick 500 /ul (Negative); Nitrite-Dipstick Negative (Negative); Occult Blood-Urine 50 /ul (Negative); Protein-Dipstick 100 mg/dl (Negative); Urine Bilirubin Dipstick Negative (Negative); Urine Clarity Cloudy (Clear); Urine Urobilinogen Normal (Normal); Urine pH 6.5 (5.0 - 8.0)
[2023-10-07 14:09] LABS: Bacteria 4+ /hpf (None Seen); Red Blood Cells-Urine 5-10 SEEN /hpf (0-5); Squamous Epithelial Cells - UA 10-25 SEEN /hpf (5-10); White Blood Cells 50-100 SEEN /hpf (0-5)
[2023-10-07 14:11] LABS: Anion Gap 6 (5-15); BUN 18 mg/dL (7-18); BUN/Creat Ratio 21.7 RATIO (10-20); Calcium,Total 9.1 mg/dL (8.5-10.1); Chloride 105 mmol/L (98-107); Creatinine, Serum 0.83 mg/dL (0.55-1.02); EST Glomerular Filtration Rate 80 mL/min (>60); Est Glom Filt Rate - Afr Amer 97 mL/min (>60); Estimated Creatinine Clearance 96.23 ml/min; Glucose 267 mg/dL (74-106); Sodium Level 134 mmol/L (136-145)
[2023-10-07 14:12] LABS: Internal QC Validated? YES +Cl - CLEAR BKGD; Pregnancy, Serum, hCG Quali. NEGATIVE Negative
[2023-10-07] MEDS: Ketorolac 30 MG/ML Syringe IV (14:31)
[2023-10-07 15:16] VITALS: BP 116/87; PULSE 71; RESP 12; O2SAT 98
[2023-10-07 15:45] VITALS: BP 124/74; PULSE 112; RESP 18; TEMP 37; O2SAT 97
== END 2023-10-07 15:50 | disposition home or self-care (01) ==
PROVIDERS: Emergency Provider Emergency Medicine; PCP Family Medicine; Visit Provider Emergency Medicine
DX: R10.9 Unspecified abdominal pain (principal); Z93.3 Colostomy status; Q05.9 Spina bifida, unspecified; E11.22 Type 2 diabetes mellitus with diabetic chronic kidney disease; Z79.4 Long term (current) use of insulin; I12.9 Hypertensive chronic kidney disease with stage 1 through stage 4 chronic kidney disease, or unspecified chronic kidney disease; N18.9 Chronic kidney disease, unspecified; E78.5 Hyperlipidemia, unspecified; Z79.899 Other long term (current) drug therapy; Z79.84 Long term (current) use of oral hypoglycemic drugs; F41.8 Other specified anxiety disorders; Z87.442 Personal history of urinary calculi
CPT/HCPCS: 74176; 80048; 81001; 84703; 85025; 96374; 96375; 99283; J7030; J2405

== ENCOUNTER 2023-11-07 16:38 | Emergency (ER) | payer MEDICARE, MEDICAID, SELFPAY ==
[2023-11-07] VITALS (10 sets, daily range): BP systolic 101–144; BP diastolic 67–97; PULSE 64–110; RESP 14–22; TEMP 36.2–38.1; O2SAT 95–99
--- NOTE | 2023-11-07 17:07 | EKG12_ITS ---
Test Reason : Blood Pressure : / mmHG Vent. Rate : 099 BPM Atrial Rate : 099 BPM P-R Int : 136 ms QRS Dur : 070 ms QT Int : 342 ms P-R-T Axes : 022 022 024 degrees QTc Int : 438 ms Normal sinus rhythm Normal ECG Confirmed by Jose Dugan ([id number]), design editor WILBUR FARRAR ([id number]) on 11/08/2023 9:04:02 AM Referred By: Confirmed By:Jose Dugan
[2023-11-07 17:30] LABS: Mucous, Urine 0 SEEN /hpf (<or=2+); Red Blood Cells-Urine 0 SEEN /hpf (0-5)
--- NOTE | 2023-11-07 17:30 | RAD_ITS ---
STUDY: X-RAY CHEST REASON FOR EXAM: Female, 42 years old. chest pain TECHNIQUE: Single AP portable view of the chest. COMPARISON: None. FINDINGS: The lungs are clear and expanded. There is no demonstrated pleural abnormality. Normal size heart. Normal mediastinum and cristiano. Normal visualized pulmonary arteries. Normal visualized aortic arch and descending thoracic aorta. Normal visualized thoracic spine. Normal visualized ribs, clavicles, and shoulders. There is no demonstrated abnormality of the visualized soft tissue structures of the upper abdomen. RAD/Chest 1 View (Portable) IMPRESSION: Normal x-ray examination of the chest. Electronically Signed: Ki Ballesteros MD at 17:59 EDT ,
[2023-11-07 17:33] LABS: Absolute Lymphocyte Count 4.38 X10^3/uL (0.83-4.51); Absolute Neutrophil Count 4.3 X10^3/uL (2.0-7.7); Basophil# 0.07 X10^3/uL; Basophil% 0.7 % (0-1); Eosinophil# 0.02 X10^3/uL; Eosinophils% 0.2 % (0-5); Hematocrit 41.9 % (37-47); Hemoglobin 14.1 g/dL (12.0-15.0); Lymphocyte # 4.38 X10^3/ul (0.83-4.51); Lymphocyte % 45.2 % (19-41); Mean Corp Hgb Conc 33.7 g/dL (32-36); Mean Corpuscular Hgb 29.9 pg (27.0-32.0); Mean Corpuscular Volume 88.8 fL (81-99); Mean Platelet Vol. 9.9 fl (6.2-12.0); Monocyte# 0.79 X10^3/uL; Monocyte% 8.1 % (0-10); NRBC Flagged by Analyzer 0 % (0-5); Neutrophil # 4.27 X10^3/uL (2.7-7.7); POSITIVE MORPHOLOGY YES; Platelet Count 151 K/mm3 (150-450); RBC Distribution Width CV 13.7 % (11.6-14.6); RBC Distribution Width SD 44.5 fl (35.1-43.9); Red Blood Count 4.72 M/mm3 (4.2-5.4); White Blood Count 9.7 K/mm3 (4.4-11.0)
[2023-11-07 17:42] LABS: Differential Indicated SCAN CRITERIA MET
[2023-11-07 17:57] LABS: D-Dimer Quantitative (DVT/PE) 1.62 FEU/ug/m (0.27-0.49)
[2023-11-07 17:58] LABS: BNP,B-Type NATRIURETIC PEPTIDE 5.5 pg/mL (0-100)
[2023-11-07 18:01] LABS: AST(SGOT) 50 U/L (15-37); Alanine Aminotransfer ALT/SGPT 68 U/L (13-56); Albumin, Serum 3.5 g/dL (3.2-5.0); Alkaline Phosphatase 87 U/L (45-117); Anion Gap 9 (5-15); BUN 9 mg/dL (7-18); BUN/Creat Ratio 8.5 RATIO (10-20); Bilirubin, Direct 0.39 mg/dL (0.00-0.30); Calcium,Total 9.2 mg/dL (8.5-10.1); Chloride 102 mmol/L (98-107); Creatinine, Serum 1.06 mg/dL (0.55-1.02); EST Glomerular Filtration Rate 60 mL/min (>60); Est Glom Filt Rate - Afr Amer 73 mL/min (>60); Globulin 4.6 g/dL (2.2-4.2); Glucose 194 mg/dL (74-106); Lipase 30 U/L (13-75); Protein, Total 8.1 g/dL (6.4-8.2); Sodium Level 132 mmol/L (136-145); Troponin-I HS < 3 pg/mL (3.0-54.0)
[2023-11-07 18:02] LABS: Color, Urine Yellow (Yellow); Glucose, Dipstick Normal (Normal); Leukocyte Esterase-Dipstick 500 /ul (Negative); Nitrite-Dipstick Positive (Negative); Occult Blood-Urine 25 /ul (Negative); Protein-Dipstick 100 mg/dl (Negative); Urine Clarity Clear (Clear); Urine Urobilinogen 4 mg/dl (Normal); Urine pH 6.5 (5.0 - 8.0)
[2023-11-07 18:03] LABS: Urine Bilirubin Dipstick 1 mg/dL (Negative)
[2023-11-07] MEDS: Acetaminophen 500 MG Tablet 1000 MG PO (18:04)
[2023-11-07 18:05] LABS: Ketone-Dipstick 150 mg/dl (Negative)
--- NOTE | 2023-11-07 18:20 | CT_ITS ---
STUDY: CTA CHEST REASON FOR EXAM: Female, 42 years old. chest pain RADIATION DOSAGE (If Supplied By Facility): CTDIvol = ( 16.54 ) mGy, DLP = ( 419.51 ) mGycm TECHNIQUE: The examination was performed with the intravenous administration of 100 ML ISOVUE 370. Post-processing of the angiographic images was performed, with multiplanar reformation and 3D reconstruction. Individualized dose optimization techniques were used for this CT. COMPARISON: 10/15/2022. FINDINGS: Heterogeneous appearance of the right thyroid lobe with enlargement and multiple nodules. Thyroid ultrasound recommended. Normal enhancement of the main pulmonary artery and right and left pulmonary arteries. Normal enhancement of the bilateral peripheral pulmonary arteries. There is no demonstrated pulmonary embolism. Normal thoracic aorta and visualized great vessels. There is no demonstrated aortic dissection. Normal heart and pericardium. Normal mediastinum. Normal hilar regions. Normal visualized trachea and bronchi. The lungs are under expanded. Normal pulmonary parenchyma. Normal pleura. There are no pleural effusions. Normal chest wall structures. Stable congenital hemivertebrae of T8, otherwise negative osseous structures. CT/CTA Chest W/WO Contrast IMPRESSION: Normal CTA chest examination, without a demonstrated pulmonary embolism or arterial dissection. Low lung volumes with no evidence for cardiopulmonary disease. Probable multinodular goiter but thyroid ultrasound is recommended. Electronically Signed: Ki Ballesteros MD at 19:31 EDT ,
--- NOTE | 2023-11-07 18:20 | CT_ITS ---
STUDY: CT ABDOMEN AND PELVIS WITHOUT CONTRAST REASON FOR EXAM: Female, 42 years old. flank pain RADIATION DOSAGE (If Supplied By Facility): CTDIvol = ( 19.91 ) mGy, DLP = ( 1024.92 ) mGycm TECHNIQUE: Transaxial images were obtained from the dome of the diaphragm to the symphysis pubis without oral contrast, and without intravenous contrast. Sagittal and coronal images were reconstructed. Individualized dose optimization techniques were used for this CT. COMPARISON: 10/07/2023. FINDINGS: The visualized lung bases are unremarkable. The visualized portions of the heart are within normal limits. There is decreased attenuation of the liver consistent with steatosis. There is hepatomegaly. There is non-visualization of the gallbladder, which may be secondary to either contraction or a prior cholecystectomy. Normal spleen. Normal pancreas. Normal bilateral adrenal glands. There are no acute abnormalities of the kidneys. Bilateral cortical scarring seen worse on the right. Stable nonobstructing stone of the lower pole measuring approximately 5 mm. Evaluation of the GI tract is limited by absence of oral contrast. Cannot exclude stomach wall thickening. No dilated loops of bowel or evidence for obstruction. Cannot exclude segmental thickening of the hallman of the small or large bowel. Cannot exclude enteritis or colitis. Mild to moderate diffuse fecal retention. Again seen are changes of partial left colectomy with mid left abdominal ostomy. Stable moderate to large parastomal hernia containing numerous loops of bowel but with no evidence for obstruction. Appendix is not definitely seen. Normal abdominal aorta. Normal inferior vena cava. Normal retroperitoneum. Again seen is a suprapubic catheter and a completely contracted bladder. Unremarkable uterus. Spina bifida is seen from L2-S3. CT/Abdomen/Pelvis without Cont IMPRESSION: No change or acute abnormality. Chronic findings as above. In particular, large left parastomal hernia but with no evidence for obstruction. Fatty liver with hepatomegaly. Nonobstructing right renal stone. Electronically Signed: Ki Ballesteros MD at 19:24 EDT ,
[2023-11-07 18:24] LABS: Anisocytosis RARE; Atypical Lymphocyte 1+ %; Platelet Estimate ADEQUATE (ADEQ); Red Cell Morphology N CHROM NORMAL (NORM C&C)
--- NOTE | 2023-11-07 18:24 | EDS_ITS ---
HPI History of Present Illness Chief Complaint: General Illness Narrative Narrative: 42-year-old female presenting with multiple complaints. She reports that she was recently admitted last week at [facility] for UTI/kidney infection. She does not recall what antibiotic she was on. She states that she was discharged home without any antibiotics. She is not sure why. She states she has had a fever as high as 100.1 Fahrenheit at home. She states she always has suprapubic pressure and she always has urinary symptoms. Denies cough, shortness of breath. No other abdominal pain noted. Patient also states that she had some chest pain while she was in the hospital that never was evaluated. She states it feels like an ache. Has been constant since she was admitted. No history of DVT/PE but states she is normally bedbound with recent hospitalization. 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 Diabetic polyneuropathy Non-smoker Weakness Hyperglycemia Sepsis Urinary tract infection Diabetic foot infection Urinary tract infection Thyroid cyst Hematochezia Chronic nausea Insomnia PSVT (paroxysmal supraventricular tachycardia) Panic attacks Hyperlipidemia Lipomeningocele History of kidney stones Essential hypertension Dysthymic disorder DJD (degenerative joint disease) of thoracic spine Arthritis Anxiety and depression Uninodular goiter Non-compliance UTI (urinary tract infection) Cellulitis of left lower extremity Infection of bladder catheter Ulcer of left heel and midfoot with fat layer exposed Sepsis Lower extremity edema Delayed wound healing Type 2 diabetes mellitus with diabetic polyneuropathy Diabetic ulcer of left heel with fat layer exposed Normochromic normocytic anemia Constipation Neurogenic bowel Neurogenic bladder Hydronephrosis of right kidney UTI (urinary tract infection) Diabetes mellitus, type II Morbid obesity with BMI of 40.0-44.9, adult Spina bifida aperta of lumbar spine History of migraine Chronic back pain Home Medications ?Medication ?Instructions ?Recorded ?Last Taken ?Type furosemide 20 mg tablet 20 mg PO 2200 fluid 08/28/18 10/06/23 History furosemide 40 mg tablet 40 mg PO BREAKFAST fluid 04/05/19 10/06/23 History oxybutynin chloride 15 mg 15 mg PO DAILY bladder 11/12/19 10/06/23 History tablet,extended release 24 hr acetaminophen 500 mg tablet 1,000 mg PO TID PRN PRN Pain Or 02/12/20 09/24/20 19:24 History Fever trazodone 100 mg tablet 100 mg PO QHS sleep 01/19/21 10/06/23 History atorvastatin 80 mg tablet 80 mg PO DAILY cholesterol 01/29/21 10/06/23 History pen needle, diabetic 32 gauge x #400 ea 03/05/21 Unknown Rx 32 (BD Ultra-Fine Hope Pen Needle) glimepiride 2 mg tablet 2 mg PO BID #180 tabs 01/21/22 10/06/23 Rx lisinopril 5 mg tablet 2.5 mg (1/2 x 5 mg) PO DAILY #90 01/21/22 10/06/23 Rx tabs propranolol 10 mg tablet 5 mg (1/2 x 10 mg) PO BID heart 01/21/22 10/06/23 Rx #30 tabs ondansetron 4 mg disintegrating 4 mg PO Q6H PRN nausea and 03/22/22 10/06/23 Rx tablet vomiting #7 tabs insulin glargine 100 unit/mL (3 33 unit (0.33 mL) subcut QHS dm 09/01/22 10/06/23 Rx mL) subcutaneous pen (Lantus #30 mL Solostar U-100 Insulin) pen needle, diabetic 32 gauge x #350 ea 09/01/22 Unknown Rx 32 (BD Ultra-Fine Hope Pen Needle) insulin lispro 100 unit/mL 15 unit (0.15 mL) subcut TID #21 mL 09/02/22 10/06/23 Rx subcutaneous pen (Humalog KwikPen (U-100) Insulin) duloxetine 30 mg capsule,delayed 30 mg PO DAILY 01/04/23 10/06/23 History release loratadine 10 mg tablet (Allergy 10 mg PO DAILY 11/07/23 Unknown History Relief (loratadine)) ondansetron 4 mg disintegrating 4 mg PO Q8H PRN PRN Nausea #10 tabs 11/07/23 Unknown Rx tablet propranolol 20 mg tablet 20 mg PO BID 11/07/23 Unknown History sulfamethoxazole 800 1 tab PO BID #20 tabs 11/07/23 Unknown Rx mg-trimethoprim 160 mg tablet (Bactrim DS) Allergy/AdvReac Type Severity Reaction Status Date / Time Cephalosporins Allergy Severe Anaphylaxis Verified 11/07/23 16:43 piperacillin (From Zosyn) Allergy Intermediate Hives Verified 11/07/23 16:41 ceftriaxone (From Rocephin) Allergy Anaphylaxis Verified 11/07/23 16:43 mushroom Allergy Anaphylaxis Verified 11/07/23 16:41 peanut Allergy Anaphylaxis Verified 11/07/23 16:41 tazobactam (From Zosyn) Allergy NEEDS Verified 11/07/23 16:41 FOLLOW-UP fentanyl AdvReac Low blood Verified 11/07/23 16:41 pressure gabapentin AdvReac Other Verified 11/07/23 16:41 Gadolinium-MRI Contrast AdvReac Vomiting Verified 11/07/23 16:41 Medium Latex, Natural Rubber AdvReac Rash Verified 11/07/23 16:41 vancomycin AdvReac Rash Verified 11/07/23 16:41 Family History Mother CVA (cerebral vascular accident) Thyroid disorder Diabetes Hypertension Heart disease Hyperlipidemia Myocardial infarction, Onset Age: 54 mother had diabetes Father Cancer skin Grandmother Cancer liver Other Arthritis Skin cancer Surgical History S/P colostomy S/P thyroid biopsy (~11/06/19) history insertion suprapubic catheter Status post gastric surgery Hx of foot surgery Hx of ventral hernia repair History of spinal surgery History of cholecystectomy History of dilation and curettage Social History household members: significant other Smoking Status: Never smoker alcohol intake: current substance use type: does not use ROS ROS ED Constitutional Constitutional ED: Reports chills and fever(s); Denies sweats Eyes Eyes: Denies blurry vision or change in vision ENT ENT ED: Denies ear pain or sore throat Cardiovascular Cardiovascular: Reports chest pain; Denies palpitations or racing heartbeat Respiratory/Chest Respiratory/Chest: Denies cough, dyspnea or sputum Gastrointestinal Gastrointestinal: Reports abdominal pain, melena, nausea and vomiting; Denies constipation or diarrhea Genitourinary Genitourinary ED: Reports dysuria; Denies hematuria or urinary frequency Musculoskeletal Musculoskeletal: Denies arthralgias, myalgias or neck pain Integumentary Denies abscess, Abrasions or rash Neurologic Neurologic: Denies headache(s), paresthesias or weakness Psychiatric Psychiatric: Denies anxiety, depression, suicidal ideation or suicidal thoughts Endocrine Endocrinology: Denies polydipsia or polyuria EXAM Physical Exam Const Vital Signs: 11/07/23 16:38 11/07/23 16:40 11/07/23 17:00 Temperature 97.1 F L 97.1 F L Temperature Source Temporal Temporal Pulse Rate 110 H 110 H Respiratory Rate 22 H 22 H Respiratory Effort Normal Respiratory Pattern Irregular Blood Pressure 138/89 H 138/89 H Blood Pressure Mean 105 105 Pulse Ox 99 99 Oxygen Delivery Method Room Air Room Air 11/07/23 17:01 11/07/23 17:02 11/07/23 17:10 Temperature Temperature Source Pulse Rate 96 Respiratory Rate 18 Respiratory Effort Normal Respiratory Pattern Irregular Blood Pressure 113/76 Blood Pressure Mean 88 Pulse Ox 99 98 Oxygen Delivery Method Room Air Room Air 11/07/23 17:40 11/07/23 18:00 11/07/23 19:00 Temperature 100.6 F H 100.5 F H 99.5 F H Temperature Source Oral Oral Oral Pulse Rate 96 100 87 Respiratory Rate 21 H 20 H 16 Respiratory Effort Respiratory Pattern Blood Pressure 144/87 H 116/89 H 111/79 Blood Pressure Mean 106 98 89 Pulse Ox 99 98 98 Oxygen Delivery Method Room Air Room Air Room Air 11/07/23 20:00 11/07/23 21:00 11/07/23 21:00 Temperature 99.5 F H 98 F Temperature Source Oral Temporal Pulse Rate 86 64 64 Respiratory Rate 16 14 14 Respiratory Effort Respiratory Pattern Blood Pressure 101/67 113/72 113/72 Blood Pressure Mean 78 85 85 Pulse Ox 97 95 95 Oxygen Delivery Method Room Air 11/07/23 21:40 Temperature 98 F Temperature Source Pulse Rate 92 Respiratory Rate 14 Respiratory Effort Respiratory Pattern Blood Pressure 121/97 H Blood Pressure Mean 105 Pulse Ox 98 Oxygen Delivery Method Positive well nourished General Appearance ED: NAD; Negative for pallor HEENT Reports moist mucous membranes Eyes PERRL and EOMs intact bilaterally Chest Wall inspection of chest normal Resp normal respiratory effort and clear to auscultation bilaterally Auscultation: Negative for rales, rhonchi or wheezes Cardio regular rate and regular rhythm GI Negative for non-distended or hepatosplenomegaly GI Narrative: Mild suprapubic tenderness Palpation: soft Back/Spine no CVA tenderness Extremity normal to inspection Neuro oriented x3 and CN's II-XII intact bilaterally Sensorium / Orientation: alert Motor Exam: strength 5/5 throughout Psych mental status grossly normal Skin no rashes or lesions noted General Skin Exam: Negative for jaundice or pallor MDM MDM MDM Narrative Medical decision making narrative: Patient with multiple complaints of flank pain and urinary symptoms. She also has a fever of 100.5 here. She states she has had this on and off for the last few days. Patient was treated Tylenol and she requested something for pain and was given Toradol as she has a care plan here. She acknowledges understanding of this. Differential includes pneumonia, UTI, pyelonephritis, viral syndrome, PE, ACS, dysrhythmia. CBC was obtained to assess white blood cell count, hemoglobin, platelets. BMP to assess renal function electrolytes, glucose. High-sensitivity troponin EKG to assess for ischemia/dysrhythmia. BNP to assess for CHF since the patient states she has lower extremity edema which I do not clinically find on exam. D-dimer will be obtained to rule out PE. Urinalysis will also be obtained and sent for culture. I was able to log into [employer], and I was able to find pertinent medical records available for review to compare to the patient's current lab/imaging/workup. Urine culture was negative at previous hospitalization and the supplies she was just told home without any antibiotics. She was given Tylenol for her fever. Morphine and Zofran for her abdominal/flank pain. CBC shows normal white blood count of 9.7. Hemoglobin 14.1. Platelets normal 151. No left shift. Renal function and electrolytes are normal. High-sensitivity troponin is less than 3. EKG interpreted by myself shows sinus rhythm at 99 bpm without sign of ischemic change or ectopy. Chest x-ray on my interpretation is no acute cardiopulmonary process. D-dimer was elevated at 1.62 so we obtained a CTA of the chest and a CT abdomen pelvis without contrast to rule out kidney stone. There was no evidence of kidney stone on the CAT scan. There is also no evidence of PE, dissection, infiltrate on the CTA of the chest. Patient's fever is now improved. Her vital signs are all normal. Her lab work all unremarkable as well. I suspect she might have something viral but her COVID, RSV, influenza were negative. Urinalysis although just treated and had a negative urine culture I will treat with Bactrim to cover for pyelonephritis. She states this is usually effective for her. Culture is sent. Return precautions were discussed. Impression: 1. Chest pain?noncardiac 2. Abdominal pain 3. Pyelonephritis Lab Data Attestation: I reviewed the patient's lab results. Labs: Laboratory Results - last 24 hr 11/07/23 11/07/23 17:25 17:30 WBC 9.7 RBC 4.72 Hgb 14.1 Hct 41.9 MCV 88.8 MCH 29.9 MCHC 33.7 RDW Std Deviation 44.5 H RDW Coeff of Claude 13.7 Plt Count 151 MPV 9.9 Immature Gran % (Auto) 1.800 H Neut % (Auto) 44.0 L Lymph % (Auto) 45.2 H [place] % (Auto) 8.1 Eos % (Auto) 0.2 Baso % (Auto) 0.7 Absolute Neuts (auto) 4.3 Absolute Lymphs (auto) 4.38 Nucleated RBC % 0 Atypical Lymphocytes 1+ Platelet Estimate ADEQUATE RBC Morphology N CHROM Anisocytosis RARE D-Dimer Quant (PE/DVT) 1.62 H* Sodium 132 L Potassium 4.0 Chloride 102 Carbon Dioxide 21.0 Anion Gap 9 BUN 9 Creatinine 1.06 H Est GFR (MDRD) Af Amer 73 Est GFR (MDRD) Non-Af 60 BUN/Creatinine Ratio 8.5 L Glucose 194 H Calcium 9.2 Total Bilirubin 1.00 Direct Bilirubin 0.39 H AST 50 H ALT 68 H Alkaline Phosphatase 87 Troponin I High Sens < 3 L B-Natriuretic Peptide 5.5 Total Protein 8.1 Albumin 3.5 Globulin 4.6 H Lipase 30 Urine Color Yellow Urine Clarity Clear Urine pH 6.5 Ur Specific Anton 1.010 Urine Protein 100 H Urine Glucose (UA) Normal Urine Ketones 150 A* Urine Occult Blood 25 H Urine Nitrite Positive H Urine Bilirubin 1 H Urine Urobilinogen 4 H Ur Leukocyte Esterase 500 H Urine RBC 0 SEEN Urine WBC 10-25 SEEN Ur Squamous Epith Cells 5-10 SEEN Urine Bacteria 2+ Urine Mucus 0 SEEN Radiography Diagnostic Testing: Clinical Impression(s) from Imaging Studies Chest X-Ray 11/07/23 17:30 IMPRESSION: Normal x-ray examination of the chest. Electronically Signed: Ki Ballesteros MD at 17:59 EDT , Abdomen/Pelvis CT 11/07/23 18:20 IMPRESSION: No change or acute abnormality. Chronic findings as above. In particular, large left parastomal hernia but with no evidence for obstruction. Fatty liver with hepatomegaly. Nonobstructing right renal stone. Electronically Signed: Ki Ballesteros MD at 19:24 EDT , Chest CTA 11/07/23 18:20 IMPRESSION: Normal CTA chest examination, without a demonstrated pulmonary embolism or arterial dissection. Low lung volumes with no evidence for cardiopulmonary disease. Probable multinodular goiter but thyroid ultrasound is recommended. Electronically Signed: Ki Ballesteros MD at 19:31 EDT , Discharge Plan Triage Chief Complaint: General Illness ED Provider: Agustin Aguilar Dx/Rx/DC Orders Instructions: ED Chest Pain, Noncardiac, ED FUO Adult, ED Pyelonephritis, Female (Adult) Prescriptions: New sulfamethoxazole-trimethoprim [Bactrim DS] 800-160 mg tablet 1 tab PO BID Qty: 20 0RF ondansetron 4 mg tablet,disintegrating 4 mg PO Q8H PRN PRN (Reason: Nausea) Qty: 10 0RF No Action atorvastatin 80 mg tablet 80 mg PO DAILY Patient Comments: Take 1 tablet by mouth once daily. (DME) pen needle, diabetic [BD Ultra-Fine Hope Pen Needle] 32 gauge x 5/32 needle See Rx Instructions .ROUTE .MEDSUPPLY Qty: 400 6RF Rx Instructions: 4x/day insulin glargine [Lantus Solostar U-100 Insulin] 100 unit/mL (3 mL) insulin pen 33 unit SC QHS Qty: 30 1RF (DME) pen needle, diabetic [BD Ultra-Fine Hope Pen Needle] 32 gauge x 5/32 needle See Rx Instructions .ROUTE .MEDSUPPLY Qty: 350 1RF Rx Instructions: 4 times daily furosemide 20 MG tablet 20 mg PO 2200 Rx Instructions: 20 mg in the evening furosemide 40 MG tablet 40 mg PO BREAKFAST oxybutynin chloride 15 mg tablet extended release 24hr 15 mg PO DAILY acetaminophen 500 MG tablet 1,000 mg PO TID PRN PRN (Reason: Pain Or Fever) trazodone 100 mg tablet 100 mg PO QHS Patient Comments: Take 1 tablet by mouth daily at bedtime. glimepiride 2 mg tablet 2 mg PO BID Qty: 180 3RF Rx Instructions: Hold if glucose less than 130 mg/dl propranolol 10 MG tablet 5 mg PO BID Qty: 30 0RF Rx Instructions: Hold for heart less than 60 or systolic blood pressure less than 100 mmHg. lisinopril 5 mg tablet 2.5 mg PO DAILY Qty: 90 3RF Rx Instructions: Hold for SBP less than 130 mmHg ondansetron 4 mg tablet,disintegrating 4 mg PO Q6H PRN (Reason: nausea and vomiting) Qty: 7 0RF duloxetine 30 mg capsule,delayed release(DR/EC) 30 mg PO DAILY Patient Comments: TAKE 1 CAPSULE BY MOUTH DAILY propranolol 20 mg tablet 20 mg PO BID loratadine [Allergy Relief (loratadine)] 10 mg tablet 10 mg PO DAILY insulin lispro [Humalog KwikPen Insulin] 100 unit/mL insulin pen 15 unit subcut TID MDD 60 Qty: 21 5RF Rx Instructions: 180-220 +4 221-260 +6 261-300 8 >300 +10 Primary Care Provider: Will Shukla Referrals: Will Shukla MD [Primary Care Provider] - Print Language: Cymro Disposition Disposition: Home, Self Care Discharge Date/Time: 11/07/23 21:53
[2023-11-07 18:54] LABS: White Blood Cells 10-25 SEEN /hpf (0-5)
[2023-11-07 18:55] LABS: Bacteria 2+ /hpf (None Seen); Squamous Epithelial Cells - UA 5-10 SEEN /hpf (5-10)
[2023-11-07] MEDS: Ketorolac 15 MG/ML Vial IV (19:13)
[2023-11-07] MEDS: Smz/Tmp Ds Tablet 1 TABLET PO (21:40)
== END 2023-11-07 21:53 | disposition home or self-care (01) ==
PROVIDERS: Emergency Provider Student in an Organized Health Care Education/Training Program; PCP Family Medicine; Visit Provider Student in an Organized Health Care Education/Training Program
DX: R07.9 Chest pain, unspecified (principal); E11.9 Type 2 diabetes mellitus without complications; Z79.4 Long term (current) use of insulin; N12 Tubulo-interstitial nephritis, not specified as acute or chronic; R10.9 Unspecified abdominal pain; Z87.440 Personal history of urinary (tract) infections; Z98.84 Bariatric surgery status; E78.5 Hyperlipidemia, unspecified; N20.0 Calculus of kidney; K76.0 Fatty (change of) liver, not elsewhere classified; R30.0 Dysuria; Z90.49 Acquired absence of other specified parts of digestive tract
CPT/HCPCS: 71045; 71275; 74176; 80048; 80076; 81001; 83690; 83880; 84484; 85025; 85379; 87631; 93005; 99285; Q9967; A4216

== ENCOUNTER 2024-02-10 01:10 | Emergency (ER) | payer MEDICARE, MEDICAID, SELFPAY ==
[2024-02-10 01:11] VITALS: BP 143/84; PULSE 71; RESP 16; TEMP 36.7; O2SAT 100; BMI 41.1
[2024-02-10 01:15] VITALS: BP 140/80; PULSE 71; RESP 16; TEMP 36.7; O2SAT 100
--- NOTE | 2024-02-10 01:38 | CT_ITS ---
EXAM: CT ABDOMEN AND PELVIS WITHOUT INTRAVENOUS CONTRAST CLINICAL INDICATION: right flank pain TECHNIQUE: Helically acquired images were obtained of the abdomen and pelvis without intravenous contrast. CTDIvol = ( 17.37 ) mGy, DLP = ( 893.85 ) mGycm This CT exam was performed using one or more of the following dose reduction techniques: automated exposure control, adjustment of the mA and/or kV according to patient size, and/or use of iterative reconstruction technique. COMPARISON: January 23, 2025 FINDINGS: LOWER THORAX: Unremarkable. Lung bases are clear. No cardiomegaly. No significant pericardial effusion. ABDOMEN: LIVER: Unremarkable. Homogeneous. GALLBLADDER AND BILE DUCTS: Unremarkable. No calcified gallstones. No gallbladder distention or wall edema. No intra- or extrahepatic biliary ductal dilation. PANCREAS: Unremarkable. No focal cystic mass. SPLEEN: Unremarkable. Normal size without focal cystic or solid mass. ADRENALS: Unremarkable. No nodules. KIDNEYS AND URETERS: Question of right pyelonephritis/ureteritis with prominent urothelium throughout. No hydronephrosis. No adnexal masses. Normal renal size and position. STOMACH AND BOWEL: Small nonobstructing calyceal calculus at the right lower renal pole. Persistent parastomal hernia involving the transverse colon. Decompressed bladder Morales catheter in place. No focal inflammatory change. PELVIS: APPENDIX: No evidence of acute appendicitis. BLADDER: See above. REPRODUCTIVE: Unremarkable as visualized. No mass. ABDOMEN and PELVIS: INTRAPERITONEAL SPACE: No free air or free fluid. Atrophic right kidney with areas of renal scarring noted. No free air or free fluid. BONES/JOINTS: Unremarkable. No suspicious lytic or blastic abnormality. SOFT TISSUES: Fat-containing left anterior abdominal wall hernia. No midline shift or hydrocephalus. VASCULATURE: Unremarkable. Abdominal aorta is non-dilated. LYMPH NODES: Unremarkable. No enlarged lymph nodes. CT/Abdomen/Pelvis without Cont IMPRESSION: 1. Left anterior abdominal wall parastomal hernia with partial anterior herniation of the transverse colon without any complication. 2. Question of right pyelonephritis/ureteritis with prominent urothelium throughout. 3. No other acute or inflammatory disease or bowel obstruction. 4. Ancillary findings as above. Electronically Signed: Alexander Babb MD at 4:40 EDT ,
[2024-02-10 02:08] LABS: Bacteria 0 SEEN /hpf (None Seen); Mucous, Urine 0 SEEN /hpf (<or=2+); Red Blood Cells-Urine 0 SEEN /hpf (0-5); White Blood Cells 0 SEEN /hpf (0-5)
[2024-02-10 02:12] LABS: Color, Urine Yellow (Yellow); Glucose, Dipstick 1000 mg/dl (Normal); Ketone-Dipstick Negative (Negative); Leukocyte Esterase-Dipstick 100 /ul (Negative); Nitrite-Dipstick Negative (Negative); Occult Blood-Urine 10 /ul (Negative); Protein-Dipstick 30 mg/dl (Negative); Specific Gravity, Urine 1.015 (1.002-1.030); Urine Bilirubin Dipstick Negative (Negative); Urine Clarity Sl. Cloudy (Clear); Urine Urobilinogen Normal (Normal); Urine pH 6.5 (5.0 - 8.0)
[2024-02-10] MEDS: Morphine 4 MG/ML Syringe IV ×2 (02:15→03:25)
[2024-02-10] MEDS: 0.9% Normal Saline (1000mL) 1,000 ML 999 ML IV (02:15)
[2024-02-10] MEDS: Ondansetron 4 MG/2 ML Vial IV (02:15)
[2024-02-10 02:19] LABS: Squamous Epithelial Cells - UA 0-5 SEEN /hpf (5-10)
[2024-02-10 02:20] LABS: Internal QC Validated? YES +Cl - CLEAR BKGD; Pregnancy, Serum, hCG Quali. NEGATIVE Negative
[2024-02-10 02:34] LABS: Absolute Lymphocyte Count 4.75 X10^3/uL (0.83-4.51); Absolute Neutrophil Count 3.8 X10^3/uL (2.0-7.7); Basophil# 0.05 X10^3/uL; Basophil% 0.5 % (0-1); Eosinophil# 0.18 X10^3/uL; Eosinophils% 1.8 % (0-5); Hematocrit 41.3 % (37-47); Hemoglobin 13.9 g/dL (12.0-15.0); Lymphocyte # 4.75 X10^3/ul (0.83-4.51); Lymphocyte % 48.6 % (19-41); Mean Corp Hgb Conc 33.7 g/dL (32-36); Mean Corpuscular Hgb 29.4 pg (27.0-32.0); Mean Corpuscular Volume 87.3 fL (81-99); Mean Platelet Vol. 10.2 fl (6.2-12.0); Monocyte# 0.94 X10^3/uL; Monocyte% 9.6 % (0-10); NRBC Flagged by Analyzer 0 % (0-5); Neutrophil # 3.78 X10^3/uL (2.7-7.7); Neutrophil % 38.8 % (47-70); Platelet Count 161 K/mm3 (150-450); RBC Distribution Width CV 12.8 % (11.6-14.6); RBC Distribution Width SD 40.4 fl (35.1-43.9); Red Blood Count 4.73 M/mm3 (4.2-5.4); White Blood Count 9.8 K/mm3 (4.4-11.0)
[2024-02-10 03:11] VITALS: BP 99/65; PULSE 68; RESP 18; O2SAT 100
[2024-02-10 03:15] LABS: Glucose 362 mg/dL (74-106)
[2024-02-10 03:17] LABS: Anion Gap 14 (5-15); BUN 23 mg/dL (7-18); BUN/Creat Ratio 19.8 RATIO (10-20); Chloride 102 mmol/L (98-107); Creatinine, Serum 1.16 mg/dL (0.55-1.02); Estimated Creatinine Clearance 68.02 ml/min; Sodium Level 137 mmol/L (136-145)
--- NOTE | 2024-02-10 03:42 | EDS_ITS ---
HPI History of Present Illness Chief Complaint: Flank Pain Informant: patient and spouse/S.O. Narrative Narrative: Patient is a 43-year-old female with past medical history of spina bifida and need for colostomy and suprapubic catheter secondary to this. She is currently on Eliquis secondary to recent diagnosis of splenic infarction. She states her suprapubic catheter was changed on January 29 and it was a difficult process. She states she still been producing urine indicating it is in the proper position but that she has had concern that there was potential infection based on the difficulty in changing out the previous catheter. She does report a h istory of recurrent bladder and kidney infection. She states that she has had persistent pain that is around her baseline for the last few days but that it is increased in the last few hours. She denies any trauma. She states the pain is along the bilateral low back but greatest on the right. With concern for potential infection she presents for evaluation. 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 Diabetic polyneuropathy Non-smoker Weakness Hyperglycemia Sepsis Urinary tract infection Diabetic foot infection Urinary tract infection Thyroid cyst Hematochezia Chronic nausea Insomnia PSVT (paroxysmal supraventricular tachycardia) Panic attacks Hyperlipidemia Lipomeningocele History of kidney stones Essential hypertension Dysthymic disorder DJD (degenerative joint disease) of thoracic spine Arthritis Anxiety and depression Uninodular goiter Non-compliance UTI (urinary tract infection) Cellulitis of left lower extremity Infection of bladder catheter Ulcer of left heel and midfoot with fat layer exposed Sepsis Lower extremity edema Delayed wound healing Type 2 diabetes mellitus with diabetic polyneuropathy Diabetic ulcer of left heel with fat layer exposed Normochromic normocytic anemia Constipation Neurogenic bowel Neurogenic bladder Hydronephrosis of right kidney UTI (urinary tract infection) Diabetes mellitus, type II Morbid obesity with BMI of 40.0-44.9, adult Spina bifida aperta of lumbar spine History of migraine Chronic back pain Home Medications ?Medication ?Instructions ?Recorded ?Last Taken ?Type furosemide 20 mg tablet 20 mg PO 2200 fluid 08/28/18 10/06/23 History furosemide 40 mg tablet 40 mg PO BREAKFAST fluid 04/05/19 10/06/23 History oxybutynin chloride 15 mg 15 mg PO DAILY bladder 11/12/19 10/06/23 History tablet,extended release 24 hr acetaminophen 500 mg tablet 1,000 mg PO TID PRN PRN Pain Or 02/12/20 09/24/20 19:24 History Fever trazodone 100 mg tablet 100 mg PO QHS sleep 01/19/21 10/06/23 History atorvastatin 80 mg tablet 80 mg PO DAILY cholesterol 01/29/21 10/06/23 History pen needle, diabetic 32 gauge x #400 ea 03/05/21 Unknown Rx (BD Ultra-Fine Hope Pen Needle) lisinopril 5 mg tablet 2.5 mg (1/2 x 5 mg) PO DAILY #90 01/21/22 10/06/23 Rx tabs ondansetron 4 mg disintegrating 4 mg PO Q6H PRN nausea and 03/22/22 10/06/23 Rx tablet vomiting #7 tabs insulin glargine 100 unit/mL (3 33 unit (0.33 mL) subcut QHS dm 09/01/22 10/06/23 Rx mL) subcutaneous pen (Lantus #30 mL Solostar U-100 Insulin) pen needle, diabetic 32 gauge x #350 ea 09/01/22 Unknown Rx (BD Ultra-Fine Hope Pen Needle) duloxetine 30 mg capsule,delayed 30 mg PO DAILY 01/04/23 10/06/23 History release loratadine 10 mg tablet (Allergy 10 mg PO DAILY 11/07/23 Unknown History Relief (loratadine)) ondansetron 4 mg disintegrating 4 mg PO Q8H PRN PRN Nausea #10 tabs 11/07/23 Unknown Rx tablet propranolol 20 mg tablet 20 mg PO BID 11/07/23 Unknown History apixaban 5 mg tablet (Eliquis) 5 mg PO BID 02/10/24 Unknown History ciprofloxacin HCl 500 mg tablet 500 mg PO Q12H 02/10/24 Unknown History insulin aspart See Rx Instructions subcut TID 02/10/24 Unknown History (niacinamide)(U-100) 100 unit/mL(3 mL) subcutaneous pen (Fiasp FlexTouch U-100 Insulin) pregabalin 75 mg capsule 75 mg PO BID 02/10/24 Unknown History sulfamethoxazole 800 1 tab PO BID 7 days #14 tabs 02/10/24 Unknown Rx mg-trimethoprim 160 mg tablet (Bactrim DS) Allergy/AdvReac Type Severity Reaction Status Date / Time Cephalosporins Allergy Severe Anaphylaxis Verified 02/10/24 01:11 piperacillin (From Zosyn) Allergy Intermediate Hives Verified 02/10/24 01:11 ceftriaxone (From Rocephin) Allergy Anaphylaxis Verified 02/10/24 01:11 mushroom Allergy Anaphylaxis Verified 02/10/24 01:11 peanut Allergy Anaphylaxis Verified 02/10/24 01:11 tazobactam (From Zosyn) Allergy NEEDS Verified 02/10/24 01:11 FOLLOW-UP fentanyl AdvReac Low blood Verified 02/10/24 01:11 pressure gabapentin AdvReac Other Verified 02/10/24 01:11 Gadolinium-MRI Contrast AdvReac Vomiting Verified 02/10/24 01:11 Medium Latex, Natural Rubber AdvReac Rash Verified 02/10/24 01:11 vancomycin AdvReac Rash Verified 02/10/24 01:11 Family History Mother CVA (cerebral vascular accident) Thyroid disorder Diabetes Hypertension Heart disease Hyperlipidemia Myocardial infarction, Onset Age: 54 mother had diabetes Father Cancer skin Grandmother Cancer liver Other Arthritis Skin cancer Surgical History S/P colostomy S/P thyroid biopsy (~11/06/19) history insertion suprapubic catheter Status post gastric surgery Hx of foot surgery Hx of ventral hernia repair History of spinal surgery History of cholecystectomy History of dilation and curettage Social History household members: significant other Smoking Status: Never smoker alcohol intake: current substance use type: does not use ROS ROS ED Constitutional Constitutional ED: Denies chills or fever(s) ENT ENT ED: Denies sore throat Cardiovascular Cardiovascular: Denies chest pain Respiratory/Chest Respiratory/Chest: Denies cough or dyspnea Gastrointestinal Gastrointestinal: Reports abdominal pain; Denies diarrhea, nausea or vomiting Musculoskeletal Musculoskeletal: Reports back pain Integumentary Denies rash Neurologic Neurologic: Denies headache(s) Hematologic/Lymphatic Hematologic/Lymphatic: Reports easy bleeding and easy bruising EXAM Physical Exam Const Vital Signs: 02/10/24 01:11 02/10/24 01:15 02/10/24 03:11 Temperature 98.1 F 98.1 F Temperature Source Oral Oral Pulse Rate 71 71 68 Respiratory Rate 16 16 18 Blood Pressure 143/84 H 140/80 H 99/65 Blood Pressure Mean 103 100 76 Pulse Ox 100 100 100 Oxygen Delivery Method Room Air Room Air Room Air Positive well nourished, well developed and obese General Appearance ED: well developed; Negative for pallor Nutritional Appearance: obese HEENT HEENT Narrative: Normocephalic atraumatic Eyes PERRL and EOMs intact bilaterally General Eye ED: Negative for scleral icterus Neck supple Neck Narrative: No nuchal rigidity or meningeal sign Resp normal respiratory effort and clear to auscultation bilaterally Cardio regular rate and regular rhythm Rate: other Other Details: Radial and carotid pulses are equal and symmetric GI non-tender, non-distended and no masses GI Narrative: Abdomen is soft nontender and nondistended with normal active bowel sounds. Patient has colostomy in place in the left mid upper abdomen without surrounding soft tissue changes to suggest infection. There is a suprapubic catheter in place as well in the midline suprapubic region also without surrounding soft tissue changes to suggest infection. Auscultation: normoactive bowel sounds Palpation: soft Back/Spine no CVA tenderness Back/Spine Narrative: There is diffuse pain on palpation of the bilateral para lumbar muscle bellies that worsen with motion. No overlying secondary findings to suggest infection or trauma. Extremity Extremity Narrative: Chronic changes of the bilateral lower extremities secondary to history of spina bifida. Neuro oriented x3 and CN's II-XII intact bilaterally Sensorium / Orientation: alert Psych mental status grossly normal Skin Skin Narrative: No secondary soft tissue changes to suggest trauma or infection General Skin Exam: Negative for jaundice or pallor MDM MDM MDM Narrative Medical decision making narrative: Patient arrived to the ER with stable vitals. She reported that she has chronic pain but that it worsened in the last few hours. She knows she has a kidney stone on the right side and is concerned that this is the cause of her worsening symptoms. She also states she has concern for potential infection as this is been an issue in the past yet she denies any fevers or chills. Differential diagnosis is for kidney stone versus UTI versus pyelonephritis versus acute kidney injury versus urosepsis versus early onset DKA as she is a insulin- dependent diabetic. Basic labs are obtained and show no white count or left shift. Kidney function is normal. She is hyperglycemic but does not have elevation to her anion gap and her serum bicarb is normal going against DKA. Urine sample shows no sign of infection. CT scan confirms she has a kidney stone on the right but is within the kidney not causing any issues. The radiologist does note some thickening of the ureter and kidney concerning for potential infection. As the patient does not have any white blood cells or bacteria on the urine sample this is either very early infectious process or just secondary to her chronic indwelling Morales catheter. However as the patient does have a history of recurrent infections her urine be sent for culture and I feel it is safer to start her on antibiotic. However as she does not have acute kidney injury or signs of systemic infection she does not need to be kept in the hospital and she is otherwise safe for discharge History & Record Review Discussion w/independent historian: Patient and Significant other Lab Data Attestation: I reviewed the patient's lab results. Labs: Laboratory Results - last 24 hr 02/10/24 02/10/24 02/10/24 02:01 02:01 02:25 WBC Cancelled 9.8 Corrected WBC Cancelled RBC Cancelled 4.73 Hgb Cancelled 13.9 Hct Cancelled 41.3 MCV Cancelled 87.3 MCH Cancelled 29.4 MCHC Cancelled 33.7 RDW Std Deviation Cancelled 40.4 RDW Coeff of Claude Cancelled 12.8 Plt Count Cancelled 161 MPV Cancelled 10.2 Immature Gran % (Auto) Cancelled 0.700 Neut % (Auto) Cancelled 38.8 L Lymph % (Auto) Cancelled 48.6 H [place] % (Auto) Cancelled 9.6 Eos % (Auto) Cancelled 1.8 Baso % (Auto) Cancelled 0.5 Absolute Neuts (auto) Cancelled 3.8 Absolute Lymphs (auto) Cancelled 4.75 H Total Counted Cancelled Neutrophils % (Manual) Cancelled Band Neutrophils % Cancelled Lymphocytes % (Manual) Cancelled Monocytes % (Manual) Cancelled Eosinophils % (Manual) Cancelled Basophils % (Manual) Cancelled Metamyelocytes % Cancelled Myelocytes % Cancelled Promyelocytes % Cancelled Blast Cells % Cancelled Plasma Cell % (Manual) Cancelled Other Cells % Cancelled Nucleated RBC % Cancelled 0 Nucleated RBCs/100 WBC Cancelled Differential Comment Cancelled Diff Path Review Cancelled Hypersegmented Neuts Cancelled Atypical Lymphocytes Cancelled Reactive Lymphocytes Cancelled Smudge Cells Cancelled Toxic Granulation Cancelled Toxic Vacuolation Cancelled Dohle Bodies Cancelled Haley Rods Cancelled Platelet Estimate Cancelled Plt Morphology Comment Cancelled RBC Morphology Cancelled Cancelled Polychromasia Cancelled Hypochromasia Cancelled Basophilic Stippling Cancelled Anisocytosis Cancelled Microcytosis Cancelled Macrocytosis Cancelled Spherocytes Cancelled Sickle Cells Cancelled Target Cells Cancelled Tear Drop Cells Cancelled Ovalocytes Cancelled Stomatocytes Cancelled [place] Bodies Cancelled [place] Cells Cancelled Bite Cells Cancelled Crenated Cell Cancelled Acanthocytes (Spur) Cancelled Rouleaux Cancelled Schistocytes Cancelled Sodium 137 Potassium 4.0 Chloride 102 Carbon Dioxide 21.0 Anion Gap 14 BUN 23 H Creatinine 1.16 H Estim Creat Clear Calc 68.02 Est GFR (MDRD) Af Amer 65 Est GFR (MDRD) Non-Af 54 L BUN/Creatinine Ratio 19.8 Glucose 362 H Calcium 9.0 Serum , Qual NEGATIVE Urine Color Yellow Urine Clarity Sl. Cloudy Urine pH 6.5 Ur Specific [place] 1.015 Urine Protein 30 H Urine Glucose (UA) 1000 H Urine Ketones Negative Urine Occult Blood 10 H Urine Nitrite Negative Urine Bilirubin Negative Urine Urobilinogen Normal Ur Leukocyte Esterase 100 H Urine RBC 0 SEEN Urine WBC 0 SEEN Ur Squamous Epith Cells 0-5 SEEN Urine Bacteria 0 SEEN Urine Mucus 0 SEEN Radiography Diagnostic Testing: Clinical Impression(s) from Imaging Studies Abdomen/Pelvis CT 02/10/24 01:38 IMPRESSION: 1. Left anterior abdominal wall parastomal hernia with partial anterior herniation of the transverse colon without any complication. 2. Question of right pyelonephritis/ureteritis with prominent urothelium throughout. 3. No other acute or inflammatory disease or bowel obstruction. 4. Ancillary findings as above. 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 (DME) pen needle, diabetic [BD Ultra-Fine Hope Pen Needle] 32 gauge x 5/32 needle See Rx Instructions .ROUTE .MEDSUPPLY Qty: 400 6RF Rx Instructions: 4x/day insulin glargine [Lantus Solostar U-100 Insulin] 100 unit/mL (3 mL) insulin pen 33 unit SC QHS Qty: 30 1RF (DME) pen needle, diabetic [BD Ultra-Fine Hope Pen Needle] 32 gauge x 5/32 needle See Rx Instructions .ROUTE .MEDSUPPLY Qty: 350 1RF Rx Instructions: 4 times daily furosemide 20 MG tablet 20 mg PO 2200 Rx Instructions: 20 mg in the evening furosemide 40 MG tablet 40 mg PO BREAKFAST oxybutynin chloride 15 mg tablet extended release 24hr 15 mg PO DAILY acetaminophen 500 MG tablet 1,000 mg PO TID PRN PRN (Reason: Pain Or Fever) trazodone 100 mg tablet 100 mg PO QHS Patient Comments: Take 1 tablet by mouth daily at bedtime. lisinopril 5 mg tablet 2.5 mg PO DAILY Qty: 90 3RF Rx Instructions: Hold for SBP less than 130 mmHg ondansetron 4 mg tablet,disintegrating 4 mg PO Q6H PRN (Reason: nausea and vomiting) Qty: 7 0RF duloxetine 30 mg capsule,delayed release(DR/EC) 30 mg PO DAILY Patient Comments: TAKE 1 CAPSULE BY MOUTH DAILY propranolol 20 mg tablet 20 mg PO BID loratadine [Allergy Relief (loratadine)] 10 mg tablet 10 mg PO DAILY ondansetron 4 mg tablet,disintegrating 4 mg PO Q8H PRN PRN (Reason: Nausea) Qty: 10 0RF ciprofloxacin HCl 500 mg tablet 500 mg PO Q12H Eliquis 5 mg tablet 5 mg PO BID pregabalin 75 mg capsule 75 mg PO BID Fiasp FlexTouch U-100 Insulin 100 unit/mL (3 mL) insulin pen See Rx Instructions subcut TID Rx Instructions: Inject 20 units with meals (three times daily) PLUS SS#2 (2 units for every 50 over 150 PRE MEAL blood sugar) TDD90 units daily Primary Care Provider: Will Shukla Referrals: Will Shukla MD [Primary Care Provider] - Print Language: Grenadian Disposition Disposition: Home, Self Care
[2024-02-10 04:57] VITALS: BP 116/84; PULSE 63; RESP 18; TEMP 36.4; O2SAT 98
[2024-02-10] MEDS: Smz/Tmp Ds Tablet 1 TABLET PO (04:58)
[2024-02-12 06:05] LABS: EST Glomerular Filtration Rate 54 mL/min (>60); Est Glom Filt Rate - Afr Amer 66 mL/min (>60)
== END 2024-02-10 05:01 | disposition home or self-care (01) ==
PROVIDERS: Emergency Provider Emergency Medicine; PCP Family Medicine; Visit Provider Emergency Medicine
DX: R10.9 Unspecified abdominal pain (principal); Z93.3 Colostomy status; E11.22 Type 2 diabetes mellitus with diabetic chronic kidney disease; Z79.4 Long term (current) use of insulin; Z79.01 Long term (current) use of anticoagulants; I12.9 Hypertensive chronic kidney disease with stage 1 through stage 4 chronic kidney disease, or unspecified chronic kidney disease; N18.9 Chronic kidney disease, unspecified; Z79.899 Other long term (current) drug therapy; F41.8 Other specified anxiety disorders; E78.5 Hyperlipidemia, unspecified; D73.5 Infarction of spleen
CPT/HCPCS: 36415; 74176; 80048; 81001; 84703; 85025; 87077; 87086; 87088; 96361; 96374; 96375; 96376; 99282; J7030; A4216; J2405

== ENCOUNTER 2024-03-03 21:44 | Emergency (ER) | payer MEDICARE, MEDICAID, SELFPAY ==
[2024-03-03 21:45] VITALS: BP 134/101; PULSE 94; RESP 18; TEMP 36.3; O2SAT 100
--- NOTE | 2024-03-03 22:02 | EKG12_ITS ---
Test Reason : DYSRHYTHMIA Blood Pressure : / mmHG Vent. Rate : 085 BPM Atrial Rate : 085 BPM P-R Int : 136 ms QRS Dur : 074 ms QT Int : 380 ms P-R-T Axes : 023 008 014 degrees QTc Int : 452 ms Normal sinus rhythm Cannot rule out Inferior infarct , age undetermined Abnormal ECG Confirmed by YARIEL FITZGERALD, ANUM ([id number]), associate entertainment editor WILBUR FARRAR ([id number]) on 03/08/2024 6:45:39 AM Referred By: BB Confirmed By:ANUM SALDIVAR MD
--- NOTE | 2024-03-03 22:04 | ED.VIS.CHEST ---
HPI History of Present Illness Chief Complaint: Anxiety Informant: patient Narrative Narrative: 43-year-old female states she was lying in bed when about 3 hours prior to evaluation she started feeling an anxiety attack coming on which she has had many times in the past, shortly followed by chest pain, followed by discomfort and tingling down her left arm. That made her feel more anxious. Now she states she is starting to feel dizzy/lightheaded. She has spina bifida, she has neurogenic bowel and bladder so she has chronic indwelling Morales catheter and a diverting colostomy, she has issues walking and she had a blood clot in her spleen diagnosed which is why she is now on a apixaban. She denies any history of heart problems but she is also diabetic and her mom had a heart attack so she presents out of concern for all of this. CVD Risk Factors: Positive for Hypertension, Diabetes and Family History 1' </=55 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 Diabetic polyneuropathy Non-smoker Weakness Hyperglycemia Sepsis Urinary tract infection Diabetic foot infection Urinary tract infection Thyroid cyst Hematochezia Chronic nausea Insomnia PSVT (paroxysmal supraventricular tachycardia) Panic attacks Hyperlipidemia Lipomeningocele History of kidney stones Essential hypertension Dysthymic disorder DJD (degenerative joint disease) of thoracic spine Arthritis Anxiety and depression Uninodular goiter Non-compliance UTI (urinary tract infection) Cellulitis of left lower extremity Infection of bladder catheter Ulcer of left heel and midfoot with fat layer exposed Sepsis Lower extremity edema Delayed wound healing Type 2 diabetes mellitus with diabetic polyneuropathy Diabetic ulcer of left heel with fat layer exposed Normochromic normocytic anemia Constipation Neurogenic bowel Neurogenic bladder Hydronephrosis of right kidney UTI (urinary tract infection) Diabetes mellitus, type II Morbid obesity with BMI of 40.0-44.9, adult Spina bifida aperta of lumbar spine History of migraine Chronic back pain Home Medications ?Medication ?Instructions ?Recorded ?Last Taken ?Type furosemide 20 mg tablet 20 mg PO 2200 fluid 08/28/18 10/06/23 History furosemide 40 mg tablet 40 mg PO BREAKFAST fluid 04/05/19 10/06/23 History oxybutynin chloride 15 mg 15 mg PO DAILY bladder 11/12/19 10/06/23 History tablet,extended release 24 hr acetaminophen 500 mg tablet 1,000 mg PO TID PRN PRN Pain Or 02/12/20 09/24/20 19:24 History Fever trazodone 100 mg tablet 100 mg PO QHS sleep 01/19/21 10/06/23 History atorvastatin 80 mg tablet 80 mg PO DAILY cholesterol 01/29/21 10/06/23 History pen needle, diabetic 32 gauge x #400 ea 03/05/21 Unknown Rx (BD Ultra-Fine Hope Pen Needle) lisinopril 5 mg tablet 2.5 mg (1/2 x 5 mg) PO DAILY #90 01/21/22 10/06/23 Rx tabs ondansetron 4 mg disintegrating 4 mg PO Q6H PRN nausea and 03/22/22 10/06/23 Rx tablet vomiting #7 tabs insulin glargine 100 unit/mL (3 33 unit (0.33 mL) subcut QHS dm 09/01/22 10/06/23 Rx mL) subcutaneous pen (Lantus #30 mL Solostar U-100 Insulin) pen needle, diabetic 32 gauge x #350 ea 09/01/22 Unknown Rx (BD Ultra-Fine Hope Pen Needle) duloxetine 30 mg capsule,delayed 30 mg PO DAILY 01/04/23 10/06/23 History release loratadine 10 mg tablet (Allergy 10 mg PO DAILY 11/07/23 Unknown History Relief (loratadine)) ondansetron 4 mg disintegrating 4 mg PO Q8H PRN PRN Nausea #10 tabs 11/07/23 Unknown Rx tablet propranolol 20 mg tablet 20 mg PO BID 11/07/23 Unknown History apixaban 5 mg tablet (Eliquis) 5 mg PO BID 02/10/24 Unknown History ciprofloxacin HCl 500 mg tablet 500 mg PO Q12H 02/10/24 Unknown History insulin aspart See Rx Instructions subcut TID 02/10/24 Unknown History (niacinamide)(U-100) 100 unit/mL(3 mL) subcutaneous pen (Fiasp FlexTouch U-100 Insulin) pregabalin 75 mg capsule 75 mg PO BID 02/10/24 Unknown History sulfamethoxazole 800 1 tab PO BID 7 days #14 tabs 02/10/24 Unknown Rx mg-trimethoprim 160 mg tablet (Bactrim DS) Allergy/AdvReac Type Severity Reaction Status Date / Time Cephalosporins Allergy Severe Anaphylaxis Verified 03/03/24 21:45 piperacillin (From Zosyn) Allergy Intermediate Hives Verified 03/03/24 21:45 ceftriaxone (From Rocephin) Allergy Anaphylaxis Verified 03/03/24 21:45 mushroom Allergy Anaphylaxis Verified 03/03/24 21:45 peanut Allergy Anaphylaxis Verified 03/03/24 21:45 tazobactam (From Zosyn) Allergy NEEDS Verified 03/03/24 21:45 FOLLOW-UP fentanyl AdvReac Low blood Verified 03/03/24 21:45 pressure gabapentin AdvReac Other Verified 03/03/24 21:45 Gadolinium-MRI Contrast AdvReac Vomiting Verified 03/03/24 21:45 Medium Latex, Natural Rubber AdvReac Rash Verified 03/03/24 21:45 vancomycin AdvReac Rash Verified 03/03/24 21:45 Family History Mother CVA (cerebral vascular accident) Thyroid disorder Diabetes Hypertension Heart disease Hyperlipidemia Myocardial infarction, Onset Age: 54 mother had diabetes Father Cancer skin Grandmother Cancer liver Other Arthritis Skin cancer Surgical History S/P colostomy S/P thyroid biopsy (~11/06/19) history insertion suprapubic catheter Status post gastric surgery Hx of foot surgery Hx of ventral hernia repair History of spinal surgery History of cholecystectomy History of dilation and curettage Social History household members: significant other Smoking Status: Never smoker alcohol intake: current substance use type: does not use ROS ROS ED Constitutional Constitutional ED: Denies chills or fever(s) Eyes Eyes: Denies change in vision or diplopia ENT ENT ED: Denies rhinorrhea or sore throat Cardiovascular Cardiovascular: Reports as per HPI, chest pain, lightheadedness and other Details: Fast heartbeat when pain and anxiety are both worse ; Denies palpitations or syncope Respiratory/Chest Respiratory/Chest: Denies cough or dyspnea Gastrointestinal Gastrointestinal: Denies abdominal pain, diarrhea, nausea or vomiting Genitourinary Genitourinary ED: Denies hematuria Musculoskeletal Musculoskeletal: Denies back pain or neck pain Integumentary Denies abscess or rash Neurologic Neurologic: Reports paresthesias; Denies headache(s) or weakness Psychiatric Psychiatric: Reports anxiety; Denies suicidal thoughts EXAM Physical Exam Const Vital Signs: 03/03/24 21:45 03/03/24 22:28 Temperature 97.3 F L Temperature Source Temporal Pulse Rate 94 Respiratory Rate 18 Blood Pressure 134/101 H Blood Pressure Mean 112 Pulse Ox 100 Oxygen Delivery Method Room Air Room Air Positive well nourished and well developed General Appearance ED: well developed and NAD HEENT Reports moist mucous membranes normocephalic and atraumatic Eyes PERRL and EOMs intact bilaterally Neck full ROM and supple Resp normal respiratory effort and clear to auscultation bilaterally Cardio regular rate, regular rhythm and no murmurs Peripheral Pulses: radial pulses present bilateral 2+ GI non-tender and non-distended Auscultation: normoactive bowel sounds Palpation: soft Narrative: Transparent nonbloody yellow urine in Morales catheter suprapubic site benign Back/Spine no CVA tenderness General Back: other FROM Extremity normal to inspection General Extremety ED: Yes edema; Negative for pulses abnormal or tenderness General Extremity: edema bilateral lower extremity Details: moderate; Negative for pulses abnormal Neuro oriented x3, CN's II-XII intact bilaterally and no sensory deficits noted Sensorium / Orientation: awake and alert Motor Exam: strength 5/5 throughout Psych Mood & Affect: anxious Skin no rashes or lesions noted and no wounds Heart Score History: Moderately Suspicious ECG: Normal Age: </= 45 years Risk Factors: >/= 3 Risk Factors or History of CAD Troponin: </= Normal Limit Score: 3 MDM MDM MDM Narrative Medical decision making narrative: Patient's EKG is normal, making it less likely this is acute coronary syndrome, which also correlates with the fact that she is anticoagulated making that less likely at her age as well even though she does have risk factors. Labs noted, two-view chest x-ray on my interpretation is negative for anything acute, mediastinum is narrow she does not have pneumonia or pneumothorax. Her symptoms potentially could be GI related, also given the fact that the EKG is normal while waiting on the rest of the labs and troponin to return, she was given a GI cocktail as well as some Ativan for anxiety. After 3 hours plus of constant discomfort, her EKG is normal and her high-sensitivity troponin is 3. Therefore I do not think that we need to do a repeat. The rest of her tests are unremarkable except for blood sugar of 259 which seems to be common for her looking at her past labs. On reevaluation she states her symptoms are improved but still present to some degree. Her anxiety is better. He is comfortable going home and resting. She states she does have some esophagus issues for which she is seeing a surgeon tomorrow. We discussed reasons to return she is comfortable with that plan. Lab Data Attestation: I reviewed the patient's lab results. Labs: Laboratory Results - last 24 hr 03/03/24 22:35 WBC 10.5 RBC 4.85 Hgb 14.3 Hct 42.2 MCV 87.0 MCH 29.5 MCHC 33.9 RDW Std Deviation 41.4 RDW Coeff of Claude 13.1 Plt Count 189 MPV 10.2 Immature Gran % (Auto) 0.400 Neut % (Auto) 51.9 Lymph % (Auto) 37.2 [place] % (Auto) 8.9 Eos % (Auto) 0.9 Baso % (Auto) 0.7 Absolute Neuts (auto) 5.4 Absolute Lymphs (auto) 3.89 Nucleated RBC % 0 Sodium 134 L Potassium 3.6 Chloride 102 Carbon Dioxide 24.0 Anion Gap 9 BUN 16 Creatinine 0.94 Est GFR (MDRD) Af Amer 84 Est GFR (MDRD) Non-Af 69 BUN/Creatinine Ratio 17.0 Glucose 259 H Calcium 10.1 Troponin I High Sens 3 Radiography Diagnostic Testing: Clinical Impression(s) from Imaging Studies Chest X-Ray 03/03/24 22:45 IMPRESSION: No acute pulmonary finding. Electronically Signed: Gt Clark MD at 23:18 EDT , Rhythm Strip Rhythm Strip: Sinus Rhythm Rate: 85 Ectopy: None EKG Initial EKG: Attestation: I personally reviewed and interpreted this EKG as follows: Interpretation: Sinus Rhythm and No Acute Injury Pattern Comments: nml EKG Prior EKG tracings: available for review Prior: Unchanged Discharge Plan Triage Chief Complaint: Anxiety ED Provider: Harry Billings Dx/Rx/DC Orders Clinical Impression: Chest pain, unspecified, Hyperglycemia due to type 2 diabetes mellitus, Anxiety attack Instructions: ED Chest Pain, Noncardiac Prescriptions: No Action atorvastatin 80 mg tablet 80 mg PO DAILY Patient Comments: Take 1 tablet by mouth once daily. (DME) pen needle, diabetic [BD Ultra-Fine Hope Pen Needle] 32 gauge x 5/32 needle See Rx Instructions .ROUTE .MEDSUPPLY Qty: 400 6RF Rx Instructions: 4x/day insulin glargine [Lantus Solostar U-100 Insulin] 100 unit/mL (3 mL) insulin pen 33 unit SC QHS Qty: 30 1RF (DME) pen needle, diabetic [BD Ultra-Fine Hope Pen Needle] 32 gauge x 5/32 needle See Rx Instructions .ROUTE .MEDSUPPLY Qty: 350 1RF Rx Instructions: 4 times daily furosemide 20 MG tablet 20 mg PO 2200 Rx Instructions: 20 mg in the evening furosemide 40 MG tablet 40 mg PO BREAKFAST oxybutynin chloride 15 mg tablet extended release 24hr 15 mg PO DAILY acetaminophen 500 MG tablet 1,000 mg PO TID PRN PRN (Reason: Pain Or Fever) trazodone 100 mg tablet 100 mg PO QHS Patient Comments: Take 1 tablet by mouth daily at bedtime. lisinopril 5 mg tablet 2.5 mg PO DAILY Qty: 90 3RF Rx Instructions: Hold for SBP less than 130 mmHg ondansetron 4 mg tablet,disintegrating 4 mg PO Q6H PRN (Reason: nausea and vomiting) Qty: 7 0RF duloxetine 30 mg capsule,delayed release(DR/EC) 30 mg PO DAILY Patient Comments: TAKE 1 CAPSULE BY MOUTH DAILY propranolol 20 mg tablet 20 mg PO BID loratadine [Allergy Relief (loratadine)] 10 mg tablet 10 mg PO DAILY ondansetron 4 mg tablet,disintegrating 4 mg PO Q8H PRN PRN (Reason: Nausea) Qty: 10 0RF ciprofloxacin HCl 500 mg tablet 500 mg PO Q12H Eliquis 5 mg tablet 5 mg PO BID pregabalin 75 mg capsule 75 mg PO BID Fiasp FlexTouch U-100 Insulin 100 unit/mL (3 mL) insulin pen See Rx Instructions subcut TID Rx Instructions: Inject 20 units with meals (three times daily) PLUS SS#2 (2 units for every 50 over 150 PRE MEAL blood sugar) TDD90 units daily sulfamethoxazole-trimethoprim [Bactrim DS] 800-160 mg tablet 1 tab PO BID 7 Days Qty: 14 0RF Primary Care Provider: Will Shukla Referrals: Will Shukla MD [Primary Care Provider] - 3-5 Days if not improving Print Language: Trinidadian Disposition Disposition: Home, Self Care
[2024-03-03] MEDS: Mag Hydrox/Al Hydrox/Simeth 30 ML UDC PO (22:29)
[2024-03-03] MEDS: Lidocaine 2% Viscous15 ML UDC 15 ML PO (22:29)
[2024-03-03] MEDS: LORazepam 2 MG/ML Syringe 0.5 MG IV (22:39)
--- NOTE | 2024-03-03 22:45 | RAD_ITS ---
INDICATION: CHEST PAIN EXAMINATION/TECHNIQUE: X-RAY - XR Chest 2 Views COMPARISON: Prior study dated: 11/07/2023 FINDINGS: LINES/DEVICES: None. LUNGS: The lungs are well expanded. No consolidation, edema or effusion. No pneumothorax. MEDIASTINUM AND CARDIOVASCULAR STRUCTURES: Cardiac silhouette not enlarged. Central airways and mediastinal contour are unremarkable. BONES AND SOFT TISSUES: No acute abnormality. RAD/Chest PA and Lateral IMPRESSION: No acute pulmonary finding. Electronically Signed: Gt Clark MD at 23:18 EDT ,
[2024-03-03 22:46] LABS: Absolute Lymphocyte Count 3.89 X10^3/uL (0.83-4.51); Absolute Neutrophil Count 5.4 X10^3/uL (2.0-7.7); Basophil# 0.07 X10^3/uL; Basophil% 0.7 % (0-1); Eosinophil# 0.09 X10^3/uL; Eosinophils% 0.9 % (0-5); Hematocrit 42.2 % (37-47); Hemoglobin 14.3 g/dL (12.0-15.0); Lymphocyte # 3.89 X10^3/ul (0.83-4.51); Lymphocyte % 37.2 % (19-41); Mean Corp Hgb Conc 33.9 g/dL (32-36); Mean Corpuscular Hgb 29.5 pg (27.0-32.0); Mean Platelet Vol. 10.2 fl (6.2-12.0); Monocyte# 0.93 X10^3/uL; Monocyte% 8.9 % (0-10); NRBC Flagged by Analyzer 0 % (0-5); Neutrophil # 5.44 X10^3/uL (2.7-7.7); Neutrophil % 51.9 % (47-70); Platelet Count 189 K/mm3 (150-450); RBC Distribution Width CV 13.1 % (11.6-14.6); RBC Distribution Width SD 41.4 fl (35.1-43.9); Red Blood Count 4.85 M/mm3 (4.2-5.4); White Blood Count 10.5 K/mm3 (4.4-11.0)
[2024-03-03 23:00] VITALS: BMI 42.0
[2024-03-03 23:11] LABS: Anion Gap 9 (5-15); BUN 16 mg/dL (7-18); Calcium,Total 10.1 mg/dL (8.5-10.1); Chloride 102 mmol/L (98-107); Creatinine, Serum 0.94 mg/dL (0.55-1.02); EST Glomerular Filtration Rate 69 mL/min (>60); Est Glom Filt Rate - Afr Amer 84 mL/min (>60); Glucose 259 mg/dL (74-106); Potassium 3.6 mmol/L (3.5-5.1); Sodium Level 134 mmol/L (136-145); Troponin-I HS 3 pg/mL (3.0-54.0)
[2024-03-03 23:41] VITALS: BP 143/90; PULSE 79; RESP 18; TEMP 36.6; O2SAT 97
== END 2024-03-03 23:44 | disposition home or self-care (01) ==
PROVIDERS: Emergency Provider Emergency Medicine; PCP Family Medicine; Visit Provider Emergency Medicine
DX: R07.9 Chest pain, unspecified (principal); Z93.3 Colostomy status; Q05.9 Spina bifida, unspecified; E11.65 Type 2 diabetes mellitus with hyperglycemia; E11.22 Type 2 diabetes mellitus with diabetic chronic kidney disease; E11.42 Type 2 diabetes mellitus with diabetic polyneuropathy; F41.9 Anxiety disorder, unspecified; I12.9 Hypertensive chronic kidney disease with stage 1 through stage 4 chronic kidney disease, or unspecified chronic kidney disease; K59.2 Neurogenic bowel, not elsewhere classified; N18.9 Chronic kidney disease, unspecified; E78.5 Hyperlipidemia, unspecified; Z79.01 Long term (current) use of anticoagulants; Z87.440 Personal history of urinary (tract) infections; Z98.84 Bariatric surgery status; Z90.49 Acquired absence of other specified parts of digestive tract
CPT/HCPCS: 71046; 80048; 84484; 85025; 93005; 96374; 99285

== ENCOUNTER 2024-04-24 16:44 | Outpatient (RCR) | payer MEDICARE, MEDICAID, SELFPAY ==
--- NOTE | 2024-04-24 18:09 | HP.SP.EVAL ---
Visit History Visit Info Date of Eval: 04/24/24 Visit: 1 [employer] Operator: LILLIAN Khan Attending Doctor: Referring Doctor: Reason for Referral: DYSPHAGIA, RX HERE Previous speech therapy: No Other Relevant Medical History/Diagnoses/Surgery: DEBBY BAILON is a 43 year old female who presents to [facility] on 04/24/2024 d/t concerns with dysphagia. Pt had an EGD at the end of February 2024 revealed acid reflux and thinning of the esophagus in the upper third. Had an ultrasound completed at [facility] last week d/t concerns with a growing thyroid cyst (has had the cyst for 6 years) -- results revealed thyroid cyst has grown to 1.4 x 1.7 x 1.7 (previously 1.2 x. 1.7 x 1.6) along with the presence of two additional cysts. It was also recommended she participate in esophageal manometry -- yet to be scheduled. Pt reports recently she has been having a dry throat which causes coughing fits. Water seems to help reduce the coughing, but she also drinks a lot of water throughout the day as well. In January 2024, Pt reports she starting having difficulty swallowing pills. Last year, Pt reporting for a short period of time she had difficulty with swallowing after her physician relieved some fluid from the cyst. Pt has a Gastric Emptying Study scheduled with [facility] on 05/21/24. Medications related to this diagnosis: Omeprazole, Oxybutynin, Proponolol, Lipitor, Lyrica, Trazodone, Lasix, and two different insulins Smoking Status: Never smoker Diagnosis Diagnosis: Dysphagia, Unspecified Pain Is pain an issue with your current prescribed condition?: No Personal Preferred language: Belgian Patient Allergies Allergies Allergies: Allergies Cephalosporins Allergy (Severe, Verified 03/03/24 21:45) Anaphylaxis piperacillin (From Zosyn) Allergy (Intermediate, Verified 03/03/24 21:45) Hives Hives and itching ceftriaxone (From Rocephin) Allergy (Verified 03/03/24 21:45) Anaphylaxis mushroom Allergy (Verified 03/03/24 21:45) Anaphylaxis peanut Allergy (Verified 03/03/24 21:45) Anaphylaxis tazobactam (From Zosyn) Allergy (Verified 03/03/24 21:45) NEEDS FOLLOW-UP fentanyl Adverse Reaction (Verified 03/03/24 21:45) Low blood pressure decreased breathing was on a vent gabapentin Adverse Reaction (Verified 03/03/24 21:45) Other 'psychotic rage' Gadolinium-MRI Contrast Medium Adverse Reaction (Verified 03/03/24 21:45) Vomiting Latex, Natural Rubber Adverse Reaction (Verified 03/03/24 21:45) Rash vancomycin Adverse Reaction (Verified 03/03/24 21:45) Rash RED MAN SYNDROME Subjective Dysphagia Symptoms Reported Symptoms/Problems with: Coughing, Difficulty Swallowing Pills, Pain on Swallowing and Food gets stuck Current Diet Solids Current Diet: Regular Current Diet Liquids Current Liquids: Thin Comments Patient Comments: -: Pt reporting there are no specific foods this time that are causing pain or choking - she is not avoiding any foods at this time. Objective Dysphagia Thin Liquids Administred via: Cup Pureed Administered via: Spoon Positioning: Head Turn Right Oral Preparation: WNL Oral Transit: WNL Bolus clearance: fully cleared Gagging: No Cough: none observed/unable to assess Pharyngeal phase: suspect pharyngeal deficits Patient Report: Pt consuming applesauce via large bite size with report of food sticking at the level of her thyroid on all 5 trials. Trialed right head turn with Pt reporting some reduction of symptoms, but still presence of food sticking. Trialed effortful swallow with this also reducing severity of sticking but still mildly present. Trialed smaller bites with effortful swallow which reduce feeling of food sticking to minimal. Pt benefiting consistently from a liquid wash. She is able to reliably state when the food is no longer stuck. Pt consuming Jello with strategies learned from applesauce trials via effortful swallow and small bites and reporting no sticking on any of the 5 trials. Regular Oral Preparation: WNL Oral Transit: WNL Bolus clearance: fully cleared Cough: none observed/unable to assess Pharyngeal phase: suspect pharyngeal deficits Patient Report: Pt trialing Cheez-It Snack Mix with a report of constant sticking despite small bites and effortful swallow. The feeling of sticking is only alleviated by liquid wash. Recommendations Modified Barium Swallow/Cookie Swallow Recommended: Yes Swallowing Treatment: Yes Diet Texture Recommendations Solids: Easy to Chew (Level 7) Liquids: Thin (Level 0) Other: - Recommending MBSS or a FEES pending Pt's conversation with Dr. Josue re: the plan for her thyroid. If they plan to resect, then will hold the instrumental evaluation to see if the removal helps to alleviate the symptoms. If they do not plan to resect, then will proceed with instrumental recommendations. Suspecting a FEES would be more appropriate to visualize the field of the cyst and it's proximity to the laryngeal vestibule and esophagus. - Also recommending slow rate of intake, small bites, and consuming pills 1 at a time in applesauce, yogurt, or pudding. Safety Saftey Precautions/Swallowing Recommendations (Check all that Apply): Small Sips & Bites when Eating and Multiple Swallows Other: Effortful Swallow Results Swallowing Within Normal Limits: No Swallowing Diagnosis: Dysphagia Unspecified (R13.10) Severity: Mild Swallowing Performance Scale Swallowing Performance Scale Swallowing Performance Scale Result: 3 Mild Reference: Neuro-QoL instrument Radiation Oncology Patient Plan Plan Plan: Will plan to place Debby on hold for now pending the results and recommendations from her physician. Recommendations Treatment Warranted: Dysphagia Progress Prognosis: Excellent Patient/Family Goal Patient/Family Goal: Reduce the feeling of sticking food in her throat. Goal #1-5 Goal #1: Pending plan of care recommendations from physician, Debby will participate in Fiberoptic Endoscopic Evaluation of Swallow (FEES) to objectively assess Pt's oropharyngeal swallow function to determine the least restrictive means of nutrition and accurately recommend a home exercise program along with compensatory strategies. Education Patient has Indicated that the Following Identified Educational Needs: None The Patient has indicated that they have no educational or learning abilities that may effect their care.: Yes Patient Instruction Patient Education: Diagnosis, Treatment Plan and Goals Person Taught: Patient and Family Teaching Method: Discussion and Demonstration Response to teaching: Return Demonstration and Verbalize Understanding
--- NOTE | 2024-10-09 10:29 | HP.SP.DC ---
ST Discharge Summary Discharged: Discharge: HEBER BAILON is a 43 year old female who presented to [facility] on 04/24/2024 following a dx of dysphagia. Pt attended initial evaluation with goals created to target participation in a fiberoptic endoscopic evaluation of swallowing pending results from her next PCP visit. After evaluation, follow up visits were not scheduled by Pt. Pt being discharged from speech therapy caseload on this date 10/09/24 d/t Pt absence in attending additional treatment visits. Thank you for allowing me to participate in the care of your patient. Will reevaluate at Pt?s request following script from physician.
== END 2024-04-24 19:00 | disposition home or self-care (01) ==
LOC: SP 16:44
PROVIDERS: PCP Family Medicine; Referring Provider Family Medicine; Visit Provider Family Medicine
DX: R13.19 Other dysphagia (principal)
CPT/HCPCS: 92610

== ENCOUNTER → 2024-05-21 | Outpatient (CLI) | payer MEDICARE, MEDICAID, SELFPAY ==
--- NOTE | 2024-05-21 07:43 | NM_ITS ---
CLINICAL: 43-year-old female with history of abdominal pain. SEMI-SOLID PHASE 99m Tc SULFUR COLLOID GASTRIC EMPTYING STUDY COMPARISON: CT of the abdomen-pelvis report 02/10/2024 FINDINGS: The patient was administered 1.2 mCi of 99m Tc sulfur colloid mixed with oatmeal and consumed per os. Image acquisitions in the anterior-posterior projections were obtained for 60 minutes. There is prompt visualization of the stomach. There is no gastroesophageal reflux identified. The T ? linear fit was calculated to be 33.78 minutes, (Normal: 12-56 minutes). NM/Gastric Emptying Study IMPRESSION: 1. NORMAL 99m Tc sulfur colloid semi-solid phase (oatmeal) gastric emptying imaging examination. A. There is normal and preserved semi-solid phase gastric emptying compared to normal controls. (Chandana et al, J Nucl Med Tech 38: 186, 2010). Electronically Signed: Severino Guallpa DO at 10:26 EST ,
== END | disposition home or self-care (01) ==
LOC: NM 07:42
PROVIDERS: PCP Family Medicine; Referring Provider Family Medicine; Visit Provider Family Medicine
DX: R11.0 Nausea (principal); E11.29 Type 2 diabetes mellitus with other diabetic kidney complication
CPT/HCPCS: 78264; A9541

== ENCOUNTER 2024-06-09 00:24 | Emergency (ER) | payer MEDICARE, MEDICAID, SELFPAY ==
[2024-06-09] VITALS (7 sets, daily range): BP systolic 119–149; BP diastolic 82–100; PULSE 57–84; RESP 18–20; TEMP 36.5–36.8; O2SAT 96–100; BMI 42.2
[2024-06-09] MEDS: Ondansetron 4 MG/2 ML Vial IV (01:06)
[2024-06-09] MEDS: 0.9% Normal Saline (1000mL) 1,000 ML 1000 ML IV (01:06)
[2024-06-09] MEDS: Morphine 4 MG/ML Syringe IV (01:06)
--- NOTE | 2024-06-09 01:21 | EX.ED.DYSGE1 ---
HPI History of Present Illness Chief Complaint: Complaint Informant: patient and spouse/S.O. Narrative Narrative: History of diabetes, neuropathy, neurogenic bladder with suprapubic cath presents with continued pain suprapubic back pain. Nausea and vomiting throughout the weakness he eats. No hematemesis. Was seen in outside ED a week ago in [place], diagnosed with urinary tract infection on Macrobid. She has had a CT scan that was negative. States her glucose was 500 in the ED there. It has been elevated. She is on insulin. Denies fevers or chills. She was prescribed Percocet for pain control for which she ran out states it was not helping. Presents here for evaluation. Reported throughout the week there was blood in her urine. 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 She has been off Eliquis since January followed by [facility] urology and hematology. 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 Diabetic polyneuropathy Non-smoker Weakness Hyperglycemia Sepsis Urinary tract infection Diabetic foot infection Urinary tract infection Thyroid cyst Hematochezia Chronic nausea Insomnia PSVT (paroxysmal supraventricular tachycardia) Panic attacks Hyperlipidemia Lipomeningocele History of kidney stones Essential hypertension Dysthymic disorder DJD (degenerative joint disease) of thoracic spine Arthritis Anxiety and depression Uninodular goiter Non-compliance UTI (urinary tract infection) Cellulitis of left lower extremity Infection of bladder catheter Ulcer of left heel and midfoot with fat layer exposed Sepsis Lower extremity edema Delayed wound healing Type 2 diabetes mellitus with diabetic polyneuropathy Diabetic ulcer of left heel with fat layer exposed Normochromic normocytic anemia Constipation Neurogenic bowel Neurogenic bladder Hydronephrosis of right kidney UTI (urinary tract infection) Diabetes mellitus, type II Morbid obesity with BMI of 40.0-44.9, adult Spina bifida aperta of lumbar spine History of migraine Chronic back pain Home Medications ?Medication ?Instructions ?Recorded ?Last Taken ?Type furosemide 20 mg tablet 20 mg PO 2200 fluid 08/28/18 10/06/23 History furosemide 40 mg tablet 40 mg PO BREAKFAST fluid 04/05/19 10/06/23 History oxybutynin chloride 15 mg 15 mg PO DAILY bladder 11/12/19 10/06/23 History tablet,extended release 24 hr acetaminophen 500 mg tablet 1,000 mg PO TID PRN PRN Pain Or 02/12/20 09/24/20 19:24 History Fever trazodone 100 mg tablet 100 mg PO QHS sleep 01/19/21 10/06/23 History atorvastatin 80 mg tablet 80 mg PO DAILY cholesterol 01/29/21 10/06/23 History pen needle, diabetic 32 gauge x #400 ea 03/05/21 Unknown Rx (BD Ultra-Fine Hope Pen Needle) lisinopril 5 mg tablet 2.5 mg (1/2 x 5 mg) PO DAILY #90 01/21/22 10/06/23 Rx tabs insulin glargine 100 unit/mL (3 33 unit (0.33 mL) subcut QHS dm 09/01/22 10/06/23 Rx mL) subcutaneous pen (Lantus #30 mL Solostar U-100 Insulin) pen needle, diabetic 32 gauge x #350 ea 09/01/22 Unknown Rx (BD Ultra-Fine Hope Pen Needle) duloxetine 30 mg capsule,delayed 30 mg PO DAILY 01/04/23 10/06/23 History release loratadine 10 mg tablet (Allergy 10 mg PO DAILY 11/07/23 Unknown History Relief (loratadine)) propranolol 20 mg tablet 20 mg PO BID 11/07/23 Unknown History insulin aspart See Rx Instructions subcut TID 02/10/24 Unknown History (niacinamide)(U-100) 100 unit/mL(3 mL) subcutaneous pen (Fiasp FlexTouch U-100 Insulin) pregabalin 75 mg capsule 75 mg PO BID 02/10/24 Unknown History ciprofloxacin HCl 500 mg tablet 500 mg PO BID #14 TABLETS 06/09/24 Unknown Rx hydrocodone-acetaminophen 5-325mg 1 tab PO Q6H PRN PRN Pain 3 days 06/09/24 Unknown Rx 5mg-325mg #12 TABLETS nitrofurantoin 1 cap PO BID 06/09/24 Unknown History monohydrate/macrocrystals 100 mg capsule ondansetron 4 mg disintegrating 4 mg PO Q8H PRN PRN Nausea #20 tabs 06/09/24 Unknown Rx tablet Allergy/AdvReac Type Severity Reaction Status Date / Time Cephalosporins Allergy Severe Anaphylaxis Verified 06/09/24 00:35 piperacillin (From Zosyn) Allergy Intermediate Hives Verified 06/09/24 00:35 ceftriaxone (From Rocephin) Allergy Anaphylaxis Verified 06/09/24 00:35 mushroom Allergy Anaphylaxis Verified 06/09/24 00:35 peanut Allergy Anaphylaxis Verified 06/09/24 00:35 tazobactam (From Zosyn) Allergy NEEDS Verified 06/09/24 00:35 FOLLOW-UP fentanyl AdvReac Low blood Verified 06/09/24 00:35 pressure gabapentin AdvReac Other Verified 06/09/24 00:35 Gadolinium-MRI Contrast AdvReac Vomiting Verified 06/09/24 00:35 Medium Latex, Natural Rubber AdvReac Rash Verified 06/09/24 00:35 vancomycin AdvReac Rash Verified 06/09/24 00:35 Family History Mother CVA (cerebral vascular accident) Thyroid disorder Diabetes Hypertension Heart disease Hyperlipidemia Myocardial infarction, Onset Age: 54 mother had diabetes Father Cancer skin Grandmother Cancer liver Other Arthritis Skin cancer Surgical History S/P colostomy S/P thyroid biopsy (~11/06/19) history insertion suprapubic catheter Status post gastric surgery Hx of foot surgery Hx of ventral hernia repair History of spinal surgery History of cholecystectomy History of dilation and curettage Social History household members: significant other Smoking Status: Never smoker alcohol intake: current substance use type: does not use ROS ROS ED Constitutional Constitutional ED: Denies chills, fever(s) or sweats ENT ENT ED: Denies sore throat Cardiovascular Cardiovascular: Denies chest pain, leg edema, palpitations or racing heartbeat Respiratory/Chest Respiratory/Chest: Denies cough, dyspnea or dyspnea on exertion Gastrointestinal Gastrointestinal: Reports abdominal pain, nausea and vomiting; Denies diarrhea Genitourinary Genitourinary ED: Denies dysuria, hematuria or urinary frequency Musculoskeletal Musculoskeletal: Denies back pain, extremity pain or neck pain Integumentary Denies rash or wounds Neurologic Neurologic: Denies headache(s), paresthesias or weakness EXAM Physical Exam Const Vital Signs: 06/09/24 00:26 06/09/24 00:30 06/09/24 01:30 Temperature 98.3 F 98.3 F 98.2 F Temperature Source Oral Oral Oral Pulse Rate 82 84 65 Respiratory Rate 20 H 20 H 18 Blood Pressure 149/90 H 136/100 H 133/82 H Blood Pressure Mean 109 112 99 Pulse Ox 100 96 99 Oxygen Delivery Method Room Air Room Air Room Air 06/09/24 02:00 06/09/24 03:00 06/09/24 04:00 Temperature 98.2 F 98.0 F 97.7 F L Temperature Source Oral Oral Oral Pulse Rate 61 68 63 Respiratory Rate 18 18 18 Blood Pressure 119/88 H 126/86 H 145/99 H Blood Pressure Mean 98 99 114 Pulse Ox 98 98 98 Oxygen Delivery Method Room Air Room Air Room Air 06/09/24 04:23 Temperature 97.7 F L Temperature Source Pulse Rate 57 L Respiratory Rate 18 Blood Pressure 126/89 H Blood Pressure Mean 101 Pulse Ox 98 Oxygen Delivery Method Positive well nourished and well developed General Appearance ED: well developed and NAD HEENT HEENT Narrative: Mild dry mucosal membranes. normocephalic and atraumatic Eyes General Eye ED: Yes normal appearance of both eyes Neck full ROM Chest Wall Chest: Negative for tenderness Resp normal respiratory effort and normal air movement Effort and Inspection: symmetric chest movement; Negative for respiratory distress Cardio regular rate, regular rhythm and no murmurs Peripheral Pulses: pulses 2+ throughout GI normal to inspection, nondistended, normoactive bowel sounds GI Narrative: Suprapubic tenderness no guarding or rebound. Left side ostomy Palpation: Negative for guarding or rebound tenderness present Narrative: Morales bag with yellow urine. Back/Spine no CVA tenderness Extremity normal to inspection General Extremety ED: Negative for edema or tenderness General Extremity: Negative for edema Neuro oriented x3 and no sensory deficits noted Sensorium / Orientation: awake and alert Skin no rashes or lesions noted and no wounds MDM MDM MDM Narrative Medical decision making narrative: Interventions / MDM: Differential diagnosis: Complicated UTI, abdominal pain, nephrolithiasis, diabetic hyperglycemia Diagnosis considered but do not suspect: Obstructive uropathy however CT negative. Diabetic ketoacidosis however workup negative. My EKG interpretation: N/A Imaging independently reviewed and interpreted by myself: CT abdomen pelvis IV contrast: No acute process. External documents reviewed: N/A Test considered but not ordered:N/A ED course: Vital stable nontoxic pain suprapubic persistent for the past week. She is on Macrobid. Also reporting nausea and vomiting elevated glucose at home. At this time recheck labs urine. Will evaluate for DKA. Will treat symptoms morphine Zofran and fluids. 0210: Reporting pain down to an 8. Labs white count returned normal 8.1 hemoglobin 14.5. Creatinine 0.9. Glucose was 334 normal gap in the lab. Fluids glucose down to 298. Acetone negative. Urine in the lab and pending at this time. Reviewed records through [facility], CT scan noted possible cystitis with stranding around the bladder. Urine culture was contaminated. She is already more pain compared to a week ago. Therefore discussed risk and benefits with repeat CT imaging for which she agreed. Normal renal function. Will treat additional IV Toradol. 0300: Urine with nitrites white cells greater 100, 3+ bacteria with cloudy urine. Urine culture sent pending. Patient with allergies to cephalosporins causing anaphylaxis. Zosyn causing hives. She currently on Macrobid with no improvement of symptoms. I evaluated her CT nephrolithiasis right side with no obstructive process. Review of her urine culture she has had Pseudomonas and Morganella. There has been sensitivities to quinolones. Will plan on starting quinolones for coverage and stopping her nitrofurantoin. Final CT read with no acute process. Patient symptoms controlled. Started on Cipro in the ED. Short prescription for [place] for pain control as she is being treated for pain from complicated UTI. She will hold her Macrobid. Outpatient follow-up with her doctors. All questions were answered. Re-evaluation: stable Disposition discussed with patient/family/significant other: Patient and significant other Case discussed with consulting clinician: N/A This note was generated with threadsy dictation software. It may contain incorrect words, spelling, and punctuation that were not noted in checking the note before signing. Lab Data Attestation: I reviewed the patient's lab results. Labs: Laboratory Results - last 24 hr 06/09/24 06/09/24 06/09/24 01:08 01:17 02:02 WBC 8.1 RBC 4.82 Hgb 14.5 Hct 42.7 MCV 88.6 MCH 30.1 MCHC 34.0 RDW Std Deviation 43.3 RDW Coeff of Claude 13.2 Plt Count 187 MPV 10.4 Immature Gran % (Auto) 0.600 Neut % (Auto) 39.8 L Lymph % (Auto) 47.2 H Pepin % (Auto) 10.2 H Eos % (Auto) 1.5 Baso % (Auto) 0.7 Absolute Neuts (auto) 3.2 Absolute Lymphs (auto) 3.81 Nucleated RBC % 0 Sodium 134 L Potassium 3.8 Chloride 102 Carbon Dioxide 27.0 Anion Gap 5 BUN 15 Creatinine 0.90 Estim Creat Clear Calc 89.01 Est GFR (MDRD) Af Amer 88 Est GFR (MDRD) Non-Af 73 BUN/Creatinine Ratio 16.7 Glucose 334 H Calcium 9.0 Urine Color Straw Urine Clarity Cloudy Urine pH 6.0 Ur Specific [place] 1.015 Urine Protein 30 H Urine Glucose (UA) 1000 H Urine Ketones Negative Urine Occult Blood 50 H Urine Nitrite Positive H Urine Bilirubin Negative Urine Urobilinogen Normal Ur Leukocyte Esterase 500 H Urine RBC 0-5 SEEN Urine WBC >100 SEEN Ur Squamous Epith Cells 5-10 SEEN Amorphous Sediment 1+ Urine Bacteria 3+ Urine Mucus RARE Acetone Level NEGATIVE POC Glucose 298 H Radiography Diagnostic Testing: Clinical Impression(s) from Imaging Studies Abdomen/Pelvis CT 06/09/24 02:09 IMPRESSION: 1. No CT evidence of acute intra-abdominal disease. 2. Large ventral hernia containing incarcerated bowel. 3. Hepatomegaly and hepatic steatosis. 4. Sequela of chronic right-sided renal insufficiency. 5. Nonobstructing renal calculus. Electronically Signed: Sandra Blunt MD at 4:18 EST Reading Location ID and State: [facility] / [place] , Service support , Discharge Plan Triage Chief Complaint: Complaint ED Provider: Arnold Caban Dx/Rx/DC Orders Clinical Impression: Complicated urinary tract infection, Nausea & vomiting, Abdominal pain, Hyperglycemia due to diabetes mellitus, Right nephrolithiasis Instructions: Abdominal Pain, Urinary Tract Infections in Women, ED Vomiting (Adult) Prescriptions: New hydrocodone-acetaminophen 5-325 mg tablet 1 tab PO Q6H PRN PRN (Reason: Pain) 3 Days Qty: 12 0RF ciprofloxacin HCl 500 mg tablet 500 mg PO BID Qty: 14 0RF ondansetron 4 mg tablet,disintegrating 4 mg PO Q8H PRN PRN (Reason: Nausea) Qty: 20 0RF No Action atorvastatin 80 mg tablet 80 mg PO DAILY Patient Comments: Take 1 tablet by mouth once daily. (DME) pen needle, diabetic [BD Ultra-Fine Hope Pen Needle] 32 gauge x 5/32 needle See Rx Instructions .ROUTE .MEDSUPPLY Qty: 400 6RF Rx Instructions: 4x/day insulin glargine [Lantus Solostar U-100 Insulin] 100 unit/mL (3 mL) insulin pen 33 unit SC QHS Qty: 30 1RF (DME) pen needle, diabetic [BD Ultra-Fine Hope Pen Needle] 32 gauge x 5/32 needle See Rx Instructions .ROUTE .MEDSUPPLY Qty: 350 1RF Rx Instructions: 4 times daily furosemide 20 MG tablet 20 mg PO 2200 Rx Instructions: 20 mg in the evening furosemide 40 MG tablet 40 mg PO BREAKFAST oxybutynin chloride 15 mg tablet extended release 24hr 15 mg PO DAILY acetaminophen 500 MG tablet 1,000 mg PO TID PRN PRN (Reason: Pain Or Fever) trazodone 100 mg tablet 100 mg PO QHS Patient Comments: Take 1 tablet by mouth daily at bedtime. lisinopril 5 mg tablet 2.5 mg PO DAILY Qty: 90 3RF Rx Instructions: Hold for SBP less than 130 mmHg duloxetine 30 mg capsule,delayed release(DR/EC) 30 mg PO DAILY Patient Comments: TAKE 1 CAPSULE BY MOUTH DAILY nitrofurantoin monohyd/m-cryst 100 mg capsule 1 cap PO BID propranolol 20 mg tablet 20 mg PO BID loratadine [Allergy Relief (loratadine)] 10 mg tablet 10 mg PO DAILY pregabalin 75 mg capsule 75 mg PO BID Fiasp FlexTouch U-100 Insulin 100 unit/mL (3 mL) insulin pen See Rx Instructions subcut TID Rx Instructions: Inject 20 units with meals (three times daily) PLUS SS#2 (2 units for every 50 over 150 PRE MEAL blood sugar) TDD90 units daily Primary Care Provider: Will Shukla Referrals: Will Shukla MD [Primary Care Provider] - Activity Restrictions/Additional Instructions: Urine with signs of infection with urine culture pending. Stop your Macrobid. Take Cipro as prescribed. Your labs are stable. CT scan with no new findings. Follow-up with your doctors. Print Language: Cambodian Disposition Disposition: Home, Self Care Discharge Date/Time: 06/09/24 04:26
[2024-06-09 01:27] LABS: Absolute Lymphocyte Count 3.81 X10^3/uL (0.83-4.51); Absolute Neutrophil Count 3.2 X10^3/uL (2.0-7.7); Basophil# 0.06 X10^3/uL; Basophil% 0.7 % (0-1); Eosinophil# 0.12 X10^3/uL; Eosinophils% 1.5 % (0-5); Hematocrit 42.7 % (37-47); Hemoglobin 14.5 g/dL (12.0-15.0); Lymphocyte # 3.81 X10^3/ul (0.83-4.51); Lymphocyte % 47.2 % (19-41); Mean Corpuscular Hgb 30.1 pg (27.0-32.0); Mean Corpuscular Volume 88.6 fL (81-99); Mean Platelet Vol. 10.4 fl (6.2-12.0); Monocyte# 0.82 X10^3/uL; Monocyte% 10.2 % (0-10); NRBC Flagged by Analyzer 0 % (0-5); Neutrophil # 3.21 X10^3/uL (2.7-7.7); Neutrophil % 39.8 % (47-70); Platelet Count 187 K/mm3 (150-450); RBC Distribution Width CV 13.2 % (11.6-14.6); RBC Distribution Width SD 43.3 fl (35.1-43.9); Red Blood Count 4.82 M/mm3 (4.2-5.4); White Blood Count 8.1 K/mm3 (4.4-11.0)
[2024-06-09 01:40] LABS: Bedside Glucose 298 mg/dL (74-106)
[2024-06-09 01:47] LABS: Anion Gap 5 (5-15); BUN 15 mg/dL (7-18); BUN/Creat Ratio 16.7 RATIO (10-20); Chloride 102 mmol/L (98-107); EST Glomerular Filtration Rate 73 mL/min (>60); Est Glom Filt Rate - Afr Amer 88 mL/min (>60); Estimated Creatinine Clearance 89.01 ml/min; Glucose 334 mg/dL (74-106); Potassium 3.8 mmol/L (3.5-5.1); Sodium Level 134 mmol/L (136-145)
--- NOTE | 2024-06-09 02:09 | CT_ITS ---
STUDY: CT ABDOMEN AND PELVIS WITH CONTRAST REASON FOR EXAM: Female, 43 years old patient with abdominal pain. RADIATION DOSAGE (If Supplied By Facility): CTDIvol = ( 16.34 ) mGy, DLP = ( 1286.71 ) mGycm TECHNIQUE: Transaxial images were obtained from the dome of the diaphragm to the symphysis pubis without oral contrast. 100 mL of IV Isovue-370 was administered. Sagittal and coronal images were reconstructed. Individualized dose optimization techniques were used for this CT. COMPARISON: CT of the abdomen and pelvis in February 10, 2024. FINDINGS: The visualized lung bases are unremarkable. The visualized portions of the heart are within normal limits. There is decreased attenuation of the liver consistent with steatosis. The liver is enlarged measuring 24.8 cm. There is non-visualization of the gallbladder, which may be secondary to either contraction or a prior cholecystectomy. Normal spleen. Normal pancreas. Normal bilateral adrenal glands. There is moderate cortical atrophy of the right kidney, consistent with chronic medical renal disease. There is a irregular contour to the right renal parenchyma consistent with multifocal parenchymal loss. There is a nonobstructing renal calculus measuring 6.2 mm in greatest dimension. Normal left kidney. Normal visualized stomach. There is no obvious dilated bowel, ascites or pneumoperitoneum. Small bowel has a grossly normal appearance. There is stool and/or gas visible throughout the colon. There is non-visualization of the appendix. Normal abdominal aorta. Normal inferior vena cava. Normal retroperitoneum. Urinary bladder is nondistended with suprapubic catheter present. Normal visualized uterus. Large central upper abdominal ventral wall hernia containing incarcerated bowel. There is mesh material adjacent to the anterior abdominal wall suggesting sequela of ventral herniorrhaphy. Normal osseous structures. CT/Abdomen/Pelvis W IV Cont ONLY IMPRESSION: 1. No CT evidence of acute intra-abdominal disease. 2. Large ventral hernia containing incarcerated bowel. 3. Hepatomegaly and hepatic steatosis. 4. Sequela of chronic right-sided renal insufficiency. 5. Nonobstructing renal calculus. Electronically Signed: Sandra Blunt MD at 4:18 EST ,
[2024-06-09 02:14] LABS: Color, Urine Straw (Yellow); Glucose, Dipstick 1000 mg/dl (Normal); Ketone-Dipstick Negative (Negative); Leukocyte Esterase-Dipstick 500 /ul (Negative); Nitrite-Dipstick Positive (Negative); Occult Blood-Urine 50 /ul (Negative); Protein-Dipstick 30 mg/dl (Negative); Specific Gravity, Urine 1.015 (1.002-1.030); Urine Bilirubin Dipstick Negative (Negative); Urine Clarity Cloudy (Clear); Urine Urobilinogen Normal (Normal)
[2024-06-09 02:28] LABS: Red Blood Cells-Urine 0-5 SEEN /hpf (0-5); White Blood Cells >100 SEEN /hpf (0-5)
[2024-06-09 02:29] LABS: Amorphous Sediment 1+; Bacteria 3+ /hpf (None Seen); Mucous, Urine RARE /hpf (<or=2+); Squamous Epithelial Cells - UA 5-10 SEEN /hpf (5-10)
[2024-06-09] MEDS: Ketorolac 15 MG/ML Vial IV (02:31)
[2024-06-09] MEDS: Ciprofloxacin 500 MG Tablet PO (03:56)
[2024-06-09] MEDS: HYDROcodone Bitartrate/Apap 5/325 Tablet PO (03:56)
== END 2024-06-09 04:26 | disposition home or self-care (01) ==
PROVIDERS: Emergency Provider Emergency Medicine; PCP Family Medicine; Visit Provider Emergency Medicine
DX: N39.0 Urinary tract infection, site not specified (principal); Z93.3 Colostomy status; E11.65 Type 2 diabetes mellitus with hyperglycemia; E11.22 Type 2 diabetes mellitus with diabetic chronic kidney disease; Z79.4 Long term (current) use of insulin; E78.5 Hyperlipidemia, unspecified; N18.9 Chronic kidney disease, unspecified; B96.4 Proteus (mirabilis) (morganii) as the cause of diseases classified elsewhere; R10.9 Unspecified abdominal pain; B96.5 Pseudomonas (aeruginosa) (mallei) (pseudomallei) as the cause of diseases classified elsewhere; I12.9 Hypertensive chronic kidney disease with stage 1 through stage 4 chronic kidney disease, or unspecified chronic kidney disease; Z79.899 Other long term (current) drug therapy; F32.A Depression, unspecified; Z90.49 Acquired absence of other specified parts of digestive tract; R11.2 Nausea with vomiting, unspecified; N20.0 Calculus of kidney

== ENCOUNTER 2024-06-12 22:37 | Emergency (ER) | payer MEDICARE, MEDICAID, SELFPAY ==
[2024-06-12 22:38] VITALS: BP 148/102; PULSE 97; RESP 20; TEMP 36.4; O2SAT 98
[2024-06-12 22:50] VITALS: BMI 41.4
--- NOTE | 2024-06-12 23:05 | ED.VIS.GI ---
HPI HPI - GI History of Present Illness Chief Complaint: Abd Pain Informant: patient Abdominal Pain/Flank Pain Onset: Today Context: Sudden Onset Timing: Continuous Quality: - (Throbbing) Location: Diffuse Worsened by: - (Laying and sitting) Relieved by: Nothing Nausea/Vomiting/Emesis GI Symptom: Positive for Nausea; Negative for Vomiting Diarrhea/Melena/Hematochezia GI Symptom: Negative for Diarrhea, Melena or Hematochezia Associated Symptoms Associated Symptoms: Negative for Hematuria Narrative Narrative: Patient presents with abdominal pain that began approximately 30 minutes prior to arrival. Patient states it began rather suddenly. Patient states it is constant. Patient describes it as throbbing. Patient states it is diffuse across her entire abdomen but worse over the upper abdomen. Patient states it is worse with laying and with sitting. Patient admits to some nausea but denies any vomiting. Patient denies any diarrhea, melena, or hematochezia. Patient states she has been constipated. Patient states she has had minimal output into her colostomy including output of gas. Patient denies any hematuria. Patient has an indwelling suprapubic catheter. 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 Diabetic polyneuropathy Non-smoker Weakness Hyperglycemia Sepsis Urinary tract infection Diabetic foot infection Urinary tract infection Thyroid cyst Hematochezia Chronic nausea Insomnia PSVT (paroxysmal supraventricular tachycardia) Panic attacks Hyperlipidemia Lipomeningocele History of kidney stones Essential hypertension Dysthymic disorder DJD (degenerative joint disease) of thoracic spine Arthritis Anxiety and depression Uninodular goiter Non-compliance UTI (urinary tract infection) Cellulitis of left lower extremity Infection of bladder catheter Ulcer of left heel and midfoot with fat layer exposed Sepsis Lower extremity edema Delayed wound healing Type 2 diabetes mellitus with diabetic polyneuropathy Diabetic ulcer of left heel with fat layer exposed Normochromic normocytic anemia Constipation Neurogenic bowel Neurogenic bladder Hydronephrosis of right kidney UTI (urinary tract infection) Diabetes mellitus, type II Morbid obesity with BMI of 40.0-44.9, adult Spina bifida aperta of lumbar spine History of migraine Chronic back pain Home Medications ?Medication ?Instructions ?Recorded ?Last Taken ?Type furosemide 20 mg tablet 20 mg PO 2200 fluid 08/28/18 10/06/23 History furosemide 40 mg tablet 40 mg PO BREAKFAST fluid 04/05/19 10/06/23 History oxybutynin chloride 15 mg 15 mg PO DAILY bladder 11/12/19 10/06/23 History tablet,extended release 24 hr acetaminophen 500 mg tablet 1,000 mg PO TID PRN PRN Pain Or 02/12/20 09/24/20 19:24 History Fever trazodone 100 mg tablet 100 mg PO QHS sleep 01/19/21 10/06/23 History atorvastatin 80 mg tablet 80 mg PO DAILY cholesterol 01/29/21 10/06/23 History pen needle, diabetic 32 gauge x #400 ea 03/05/21 Unknown Rx (BD Ultra-Fine Hope Pen Needle) lisinopril 5 mg tablet 2.5 mg (1/2 x 5 mg) PO DAILY #90 01/21/22 10/06/23 Rx tabs insulin glargine 100 unit/mL (3 33 unit (0.33 mL) subcut QHS dm 09/01/22 10/06/23 Rx mL) subcutaneous pen (Lantus #30 mL Solostar U-100 Insulin) pen needle, diabetic 32 gauge x #350 ea 09/01/22 Unknown Rx (BD Ultra-Fine Hope Pen Needle) duloxetine 30 mg capsule,delayed 30 mg PO DAILY 01/04/23 10/06/23 History release loratadine 10 mg tablet (Allergy 10 mg PO DAILY 11/07/23 Unknown History Relief (loratadine)) propranolol 20 mg tablet 20 mg PO BID 11/07/23 Unknown History insulin aspart See Rx Instructions subcut TID 02/10/24 Unknown History (niacinamide)(U-100) 100 unit/mL(3 mL) subcutaneous pen (Fiasp FlexTouch U-100 Insulin) pregabalin 75 mg capsule 75 mg PO BID 02/10/24 Unknown History ciprofloxacin HCl 500 mg tablet 500 mg PO BID #14 TABLETS 06/09/24 Unknown Rx hydrocodone-acetaminophen 5-325mg 1 tab PO Q6H PRN PRN Pain 3 days 06/09/24 Unknown Rx 5mg-325mg #12 TABLETS ondansetron 4 mg disintegrating 4 mg PO Q8H PRN PRN Nausea #20 tabs 06/09/24 Unknown Rx tablet insulin lispro 100 unit/mL 3 unit subcut DAILY 06/12/24 Unknown History subcutaneous pen Allergy/AdvReac Type Severity Reaction Status Date / Time Cephalosporins Allergy Severe Anaphylaxis Verified 06/12/24 22:38 piperacillin (From Zosyn) Allergy Intermediate Hives Verified 06/12/24 22:38 ceftriaxone (From Rocephin) Allergy Anaphylaxis Verified 06/12/24 22:38 mushroom Allergy Anaphylaxis Verified 06/12/24 22:38 peanut Allergy Anaphylaxis Verified 06/12/24 22:38 tazobactam (From Zosyn) Allergy NEEDS Verified 06/12/24 22:38 FOLLOW-UP fentanyl AdvReac Low blood Verified 06/12/24 22:38 pressure gabapentin AdvReac Other Verified 06/12/24 22:38 Gadolinium-MRI Contrast AdvReac Vomiting Verified 06/12/24 22:38 Medium Latex, Natural Rubber AdvReac Rash Verified 06/12/24 22:38 vancomycin AdvReac Rash Verified 06/12/24 22:38 Family History Mother CVA (cerebral vascular accident) Thyroid disorder Diabetes Hypertension Heart disease Hyperlipidemia Myocardial infarction, Onset Age: 54 mother had diabetes Father Cancer skin Grandmother Cancer liver Other Arthritis Skin cancer Surgical History S/P colostomy S/P thyroid biopsy (~11/06/19) history insertion suprapubic catheter Status post gastric surgery Hx of foot surgery Hx of ventral hernia repair History of spinal surgery History of cholecystectomy History of dilation and curettage Social History household members: significant other Smoking Status: Never smoker alcohol intake: current substance use type: does not use ROS ROS ED Constitutional Constitutional ED: Reports chills; Denies fever(s) Eyes Eyes: Denies blurry vision or change in vision ENT ENT ED: Denies rhinorrhea or sore throat Cardiovascular Cardiovascular: Reports chest pain; Denies palpitations Respiratory/Chest Respiratory/Chest: Denies cough or dyspnea Gastrointestinal Gastrointestinal: Reports abdominal pain, constipation and nausea; Denies diarrhea, melena or vomiting Genitourinary Genitourinary ED: Denies hematuria Musculoskeletal Musculoskeletal: Reports back pain; Denies neck pain Integumentary Denies abscess or rash Neurologic Neurologic: Reports headache(s); Denies weakness Allergic/Immunologic Allergic/Immunologic ED: Denies mouth swelling or urticaria EXAM Physical Exam Const Vital Signs: 06/12/24 22:38 06/13/24 00:37 Temperature 97.6 F L Temperature Source Temporal Pulse Rate 97 Respiratory Rate 20 H 18 Blood Pressure 148/102 H Blood Pressure Mean 117 Pulse Ox 98 Oxygen Delivery Method Room Air Positive well nourished and well developed General Appearance ED: well developed and NAD HEENT Reports moist mucous membranes Neck supple and no JVD Resp normal respiratory effort and clear to auscultation bilaterally Cardio regular rate and regular rhythm GI Palpation: soft and tender epigastric, LLQ, RLQ, LUQ, RUQ, periumbilical and suprapubic; Negative for guarding or rebound tenderness present Neuro CN's II-XII intact bilaterally, moves all extremities and no sensory deficits noted Sensorium / Orientation: alert Motor Exam: strength 5/5 throughout Psych mental status grossly normal MDM MDM MDM Narrative Medical decision making narrative: Differential diagnosis includes bowel obstruction, perforation, electrolyte abnormality, sepsis, pancreatitis, urinary tract infection, dehydration, and viral illness. CBC will be obtained to assess for leukocytosis and anemia. Comprehensive metabolic profile will be obtained to assess for electrolyte abnormality, renal function, and hepatic function. Lipase will be obtained to assess for pancreatitis. Serum lactate will be obtained to assess for sepsis. Urinalysis will be obtained to assess for urinary tract infection and hematuria. CT scan of the abdomen and pelvis will be obtained to assess for bowel obstruction and perforation. Lab Data Attestation: I reviewed the patient's lab results. Lab results narrative: CBC was reviewed and was within normal limits. Comprehensive metabolic profile was reviewed. Glucose was elevated at 368. Anion gap was normal. Lipase was reviewed and was normal at 49. Serum lactate was reviewed and was normal at 2.0. Urinalysis was reviewed. Leukocyte esterase was 100. There are 10-25 white blood cells and 10-25 epithelial cells. Occult blood was 250 with greater than 100 red blood cells. Labs: Laboratory Results - last 24 hr 06/12/24 06/12/24 23:00 23:20 WBC 9.8 RBC 4.80 Hgb 14.7 Hct 42.9 MCV 89.4 MCH 30.6 MCHC 34.3 RDW Std Deviation 43.8 RDW Coeff of Claude 13.4 Plt Count 230 MPV 11.2 Immature Gran % (Auto) 0.900 Neut % (Auto) 39.6 L Lymph % (Auto) 48.5 H Peach % (Auto) 8.7 Eos % (Auto) 1.5 Baso % (Auto) 0.8 Absolute Neuts (auto) 3.9 Absolute Lymphs (auto) 4.77 H Nucleated RBC % 0 Sodium 136 Potassium 4.5 Chloride 102 Carbon Dioxide 26.0 Anion Gap 8 BUN 17 Creatinine 1.19 H Estim Creat Clear Calc 66.58 Est GFR (MDRD) Af Amer 64 Est GFR (MDRD) Non-Af 53 L BUN/Creatinine Ratio 14.3 Glucose 368 H Lactic Acid 2.0 Calcium 9.3 Total Bilirubin 0.40 AST 59 H ALT 97 H Alkaline Phosphatase 99 Total Protein 8.3 H Albumin 3.7 Globulin 4.6 H Albumin/Globulin Ratio 0.8 L Lipase 49 Urine Color Yellow Urine Clarity Clear Urine pH 6.0 Ur Specific [place] 1.020 Urine Protein 100 H Urine Glucose (UA) 1000 H Urine Ketones Negative Urine Occult Blood 250 H Urine Nitrite Negative Urine Bilirubin Negative Urine Urobilinogen Normal Ur Leukocyte Esterase 100 H Urine RBC > 100 SEEN Urine WBC 10-25 SEEN Ur Squamous Epith Cells 10-25 SEEN Urine Bacteria 1+ Urine Mucus RARE Radiography Diagnostic Testing: Clinical Impression(s) from Imaging Studies Abdomen/Pelvis CT 06/12/24 23:11 IMPRESSION: 1. No significant interval change. No acute intra-abdominal abnormality. 2. Nonobstructing right renal calculus again demonstrated. No hydronephrosis or obstructing ureteral stone. 3. 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 4. Diverticulosis of the descending colon, without evidence for acute diverticulitis. 5. Noninflamed appendix extends into a right periumbilical ventral hernia. Electronically Signed: Kulwinder Boucher MD at 0:03 EST , CT scan of the abdomen and pelvis was obtained. There is a parastomal herniation of large and small bowel but there is no evidence of bowel obstruction or vascular compromise. There is diverticulosis but no evidence of diverticulitis. There is a periumbilical ventral hernia. There is no evidence of appendicitis. This was interpreted by the radiologist and was also independently reviewed by myself. Treatment and Re-Evaluation :: Patient was given IV fluids and Zofran. Patient was given a dose of morphine. Patient was advised of her findings. Patient was instructed to start with a bland diet and advance as tolerated. Patient was instructed to use [id number] laxatives as needed for constipation. Patient was instructed to follow-up with her primary care physician in 5 to 7 days. Patient was also instructed to follow-up with her surgeon in 5 to 7 days. Patient understood and was agreeable with the plan. All questions were answered. Discharge Plan Triage Chief Complaint: Abd Pain ED Provider: Rigo sEpinal Dx/Rx/DC Orders Clinical Impression: Abdominal pain, Hyperglycemia due to diabetes mellitus Instructions: ED Abdominal Pain Unkn Cause Fem, ED Constipation (Adult) Prescriptions: No Action atorvastatin 80 mg tablet 80 mg PO DAILY Patient Comments: Take 1 tablet by mouth once daily. (DME) pen needle, diabetic [BD Ultra-Fine Hope Pen Needle] 32 gauge x 5/32 needle See Rx Instructions .ROUTE .MEDSUPPLY Qty: 400 6RF Rx Instructions: 4x/day insulin glargine [Lantus Solostar U-100 Insulin] 100 unit/mL (3 mL) insulin pen 33 unit SC QHS Qty: 30 1RF (DME) pen needle, diabetic [BD Ultra-Fine Hope Pen Needle] 32 gauge x 5/32 needle See Rx Instructions .ROUTE .MEDSUPPLY Qty: 350 1RF Rx Instructions: 4 times daily furosemide 20 MG tablet 20 mg PO 2200 Rx Instructions: 20 mg in the evening furosemide 40 MG tablet 40 mg PO BREAKFAST oxybutynin chloride 15 mg tablet extended release 24hr 15 mg PO DAILY acetaminophen 500 MG tablet 1,000 mg PO TID PRN PRN (Reason: Pain Or Fever) trazodone 100 mg tablet 100 mg PO QHS Patient Comments: Take 1 tablet by mouth daily at bedtime. lisinopril 5 mg tablet 2.5 mg PO DAILY Qty: 90 3RF Rx Instructions: Hold for SBP less than 130 mmHg duloxetine 30 mg capsule,delayed release(DR/EC) 30 mg PO DAILY Patient Comments: TAKE 1 CAPSULE BY MOUTH DAILY hydrocodone-acetaminophen 5-325 mg tablet 1 tab PO Q6H PRN PRN (Reason: Pain) 3 Days Qty: 12 0RF ciprofloxacin HCl 500 mg tablet 500 mg PO BID Qty: 14 0RF ondansetron 4 mg tablet,disintegrating 4 mg PO Q8H PRN PRN (Reason: Nausea) Qty: 20 0RF propranolol 20 mg tablet 20 mg PO BID loratadine [Allergy Relief (loratadine)] 10 mg tablet 10 mg PO DAILY pregabalin 75 mg capsule 75 mg PO BID Fiasp FlexTouch U-100 Insulin 100 unit/mL (3 mL) insulin pen See Rx Instructions subcut TID Rx Instructions: Inject 20 units with meals (three times daily) PLUS SS#2 (2 units for every 50 over 150 PRE MEAL blood sugar) TDD90 units daily insulin lispro 100 unit/mL insulin pen 3 unit subcut DAILY Rx Instructions: sliding scale Primary Care Provider: Will Shukla Referrals: Will Shukla MD [Primary Care Provider] - Print Language: Turkmen Disposition Disposition: Home, Self Care
--- NOTE | 2024-06-12 23:11 | CT_ITS ---
EXAM: CT ABDOMEN AND PELVIS WITHOUT INTRAVENOUS CONTRAST CLINICAL INDICATION: Pain TECHNIQUE: Helically acquired images were obtained of the abdomen and pelvis without intravenous contrast. This CT exam was performed using one or more of the following dose reduction techniques: automated exposure control, adjustment of the mA and/or kV according to patient size, and/or use of iterative reconstruction technique. RADIATION DOSE: Total DLP: 805.21 mGy-cm. COMPARISON: Enhanced CT abdomen/pelvis of 06/09/2024. Previous abdomen pelvis CT of 02/10/2024. FINDINGS: LOWER THORAX: Visualized lung bases are clear. Minimal calcified pleural plaque noted at the right lung base, unchanged. No coronary artery calcification is visualized.No significant pericardial effusion. No hiatal hernia. ABDOMEN: LIVER: Fatty infiltration of liver again noted. Right hepatic lobe is elongated measuring 21.3 cm in cephalocaudal dimension. GALLBLADDER AND BILE DUCTS: Nonvisualization of the gallbladder as on prior study. No biliary ductal dilatation or calcified common duct stone. PANCREAS: Unremarkable. No focal cystic mass. SPLEEN: Spleen is upper normal in size. ADRENALS: Unremarkable. No nodules. KIDNEYS AND URETERS: Right kidney is again noted to be small secondary to multiple cortical scars, with cortical thinning. There is a stable 6 mm nonobstructing stone within the right renal lower pole collecting system. No hydronephrosis or obstructing ureteral stone. STOMACH AND BOWEL: Findings of previous partial colectomy again noted with left mid abdominal ostomy. 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 No bowel wall thickening, mesenteric edema or ascites is seen to indicate strangulation/gangrene. No evidence for large or small bowel obstruction. Surgical mesh markers again noted within the anterior abdominal wall inferior and medial to the level of the left anterior ostomy. Multiple diverticula project from the descending colon, without evidence for acute diverticulitis. No gastric mural thickening or periduodenal inflammatory changes. PELVIS: APPENDIX: No findings of acute appendicitis. BLADDER: Urinary bladder is collapsed about a suprapubic catheter. REPRODUCTIVE: Lobulated uterus suggestive of fibroids. No adnexal mass. ABDOMEN and PELVIS: INTRAPERITONEAL SPACE: No ascites or free air. BONES/JOINTS: Lumbar spine postoperative changes are again noted with multilevel midline laminectomy. No acute osseous abnormality. No suspicious lytic or blastic abnormality. SOFT TISSUES: Fat-filled periumbilical hernia is present with protrusion of noninflamed appendix into this hernia, unchanged. The cecum is noted to loop medially into the anterior aspect of the right abdomen. VASCULATURE: Unremarkable. Abdominal aorta is non-dilated. LYMPH NODES: Unremarkable. No enlarged lymph nodes. CT/Abdomen/Pelvis without Cont IMPRESSION: 1. No significant interval change. No acute intra-abdominal abnormality. 2. Nonobstructing right renal calculus again demonstrated. No hydronephrosis or obstructing ureteral stone. 3. 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 4. Diverticulosis of the descending colon, without evidence for acute diverticulitis. 5. Noninflamed appendix extends into a right periumbilical ventral hernia. Electronically Signed: Kulwinder Boucher MD at 0:03 EST ,
[2024-06-12 23:23] LABS: Absolute Lymphocyte Count 4.77 X10^3/uL (0.83-4.51); Absolute Neutrophil Count 3.9 X10^3/uL (2.0-7.7); Basophil# 0.08 X10^3/uL; Basophil% 0.8 % (0-1); Eosinophil# 0.15 X10^3/uL; Eosinophils% 1.5 % (0-5); Hematocrit 42.9 % (37-47); Hemoglobin 14.7 g/dL (12.0-15.0); Lymphocyte # 4.77 X10^3/ul (0.83-4.51); Lymphocyte % 48.5 % (19-41); Mean Corp Hgb Conc 34.3 g/dL (32-36); Mean Corpuscular Hgb 30.6 pg (27.0-32.0); Mean Corpuscular Volume 89.4 fL (81-99); Mean Platelet Vol. 11.2 fl (6.2-12.0); Monocyte# 0.86 X10^3/uL; Monocyte% 8.7 % (0-10); NRBC Flagged by Analyzer 0 % (0-5); Neutrophil # 3.89 X10^3/uL (2.7-7.7); Neutrophil % 39.6 % (47-70); Platelet Count 230 K/mm3 (150-450); RBC Distribution Width CV 13.4 % (11.6-14.6); RBC Distribution Width SD 43.8 fl (35.1-43.9); White Blood Count 9.8 K/mm3 (4.4-11.0)
[2024-06-12] MEDS: 0.9% Normal Saline (1000mL) 1,000 ML 999 ML IV (23:23)
[2024-06-12] MEDS: Ondansetron 4 MG/2 ML Vial IV (23:23)
[2024-06-12 23:24] LABS: Color, Urine Yellow (Yellow); Glucose, Dipstick 1000 mg/dl (Normal); Ketone-Dipstick Negative (Negative); Leukocyte Esterase-Dipstick 100 /ul (Negative); Nitrite-Dipstick Negative (Negative); Occult Blood-Urine 250 /ul (Negative); Protein-Dipstick 100 mg/dl (Negative); Urine Bilirubin Dipstick Negative (Negative); Urine Clarity Clear (Clear); Urine Urobilinogen Normal (Normal)
[2024-06-12 23:55] LABS: ALB/GLOB Ratio 0.8 RATIO (0.9-2.4); AST(SGOT) 59 U/L (15-37); Alanine Aminotransfer ALT/SGPT 97 U/L (13-56); Albumin, Serum 3.7 g/dL (3.2-5.0); Alkaline Phosphatase 99 U/L (45-117); Anion Gap 8 (5-15); BUN 17 mg/dL (7-18); BUN/Creat Ratio 14.3 RATIO (10-20); Calcium,Total 9.3 mg/dL (8.5-10.1); Chloride 102 mmol/L (98-107); Creatinine, Serum 1.19 mg/dL (0.55-1.02); EST Glomerular Filtration Rate 53 mL/min (>60); Est Glom Filt Rate - Afr Amer 64 mL/min (>60); Estimated Creatinine Clearance 66.58 ml/min; Globulin 4.6 g/dL (2.2-4.2); Glucose 368 mg/dL (74-106); Lipase 49 U/L (13-75); Potassium 4.5 mmol/L (3.5-5.1); Protein, Total 8.3 g/dL (6.4-8.2); Sodium Level 136 mmol/L (136-145)
[2024-06-13] LABS: Bacteria 1+ /hpf (None Seen); Red Blood Cells-Urine > 100 SEEN /hpf (0-5); Squamous Epithelial Cells - UA 10-25 SEEN /hpf (5-10); White Blood Cells 10-25 SEEN /hpf (0-5)
[2024-06-13 00:01] LABS: Mucous, Urine RARE /hpf (<or=2+)
[2024-06-13 00:37] VITALS: RESP 18
[2024-06-13] MEDS: Morphine 4 MG/ML Syringe IV (01:42)
[2024-06-13 01:45] VITALS: BP 142/89; PULSE 89; RESP 18; TEMP 36.9; O2SAT 99
[2024-06-13 03:24] LABS: Reflex Lactate? Y
== END 2024-06-13 01:47 | disposition home or self-care (01) ==
PROVIDERS: Emergency Provider Emergency Medicine; PCP Family Medicine; Visit Provider Emergency Medicine
DX: R10.9 Unspecified abdominal pain (principal); Z93.3 Colostomy status; E11.65 Type 2 diabetes mellitus with hyperglycemia; E11.42 Type 2 diabetes mellitus with diabetic polyneuropathy; E11.22 Type 2 diabetes mellitus with diabetic chronic kidney disease; E78.5 Hyperlipidemia, unspecified; N18.9 Chronic kidney disease, unspecified; I12.9 Hypertensive chronic kidney disease with stage 1 through stage 4 chronic kidney disease, or unspecified chronic kidney disease; Z90.49 Acquired absence of other specified parts of digestive tract; Z87.440 Personal history of urinary (tract) infections
CPT/HCPCS: 74176; 80053; 81001; 83605; 83690; 85025; 96361; 96374; 96375; 99282; A4216; J2405

== ENCOUNTER 2024-07-11 17:15 | Emergency (ER) | payer MEDICARE, MEDICAID, SELFPAY ==
[2024-07-11] VITALS (7 sets, daily range): BP systolic 119–169; BP diastolic 65–105; PULSE 70–88; RESP 15–21; TEMP 36.2–36.9; O2SAT 96–100; BMI 42.1; BMI 41.5
--- NOTE | 2024-07-11 17:21 | ED.RN ---
STROKE SX STARTED 07/06/24, L SIDED FACIAL NUMBNESS STARTED 15 MIN AGO. NO STROKE ALERT PER DR. RODRIGUEZ.
--- NOTE | 2024-07-11 17:24 | EKG12_ITS ---
Test Reason : Blood Pressure : */* mmHG Vent. Rate : 84 BPM Atrial Rate : 84 BPM P-R Int : 152 ms QRS Dur : 78 ms QT Int : 388 ms P-R-T Axes : 25 9 29 degrees QTcB Int : 458 ms Normal sinus rhythm Nonspecific ST abnormality Abnormal ECG Confirmed by ITZ FITZGERALD, ZACHARY ([id number]), editor news WILBUR FARRAR ([id number]) on 07/15/2024 8:10:57 AM Referred By: Confirmed By: ZACHARY MOBLEY MD
--- NOTE | 2024-07-11 17:46 | RAD_ITS ---
PROCEDURE: CHEST 1 VIEW (PORTABLE) REASON FOR EXAM: 43-year-old female, stroke/TIA. TECHNIQUE: Frontal view of the chest. COMPARISON: Chest radiographs 03/03/2024. CTA chest 11/07/2023. FINDINGS: Low lung volumes bilaterally. The heart size is normal. The lungs are clear. No focal consolidation, pleural effusion or pneumothorax. The bones are unremarkable. Lobular density overlying the right proximal clavicle correlates with subcutaneous calcified density within the posterior right upper back on recent CTA. RAD/Chest 1 View (Portable) IMPRESSION: NEGATIVE CHEST. Reading Location: [id number]
[2024-07-11 17:58] LABS: Absolute Neutrophil Count 4.5 X10^3/uL (2.0-7.7); Basophil# 0.06 X10^3/uL; Basophil% 0.7 % (0-1); Eosinophil# 0.12 X10^3/uL; Eosinophils% 1.5 % (0-5); Hematocrit 42.1 % (37-47); Hemoglobin 14.2 g/dL (12.0-15.0); Lymphocyte % 32.8 % (19-41); Mean Corp Hgb Conc 33.7 g/dL (32-36); Mean Corpuscular Hgb 30.1 pg (27.0-32.0); Mean Corpuscular Volume 89.4 fL (81-99); Mean Platelet Vol. 10.5 fl (6.2-12.0); Monocyte# 0.76 X10^3/uL; Monocyte% 9.2 % (0-10); NRBC Flagged by Analyzer 0 % (0-5); Neutrophil # 4.51 X10^3/uL (2.7-7.7); Neutrophil % 54.7 % (47-70); Platelet Count 205 K/mm3 (150-450); RBC Distribution Width CV 13.1 % (11.6-14.6); RBC Distribution Width SD 43.2 fl (35.1-43.9); Red Blood Count 4.71 M/mm3 (4.2-5.4); White Blood Count 8.2 K/mm3 (4.4-11.0)
[2024-07-11 18:03] LABS: Anion Gap 9 (5-15); BUN 15 mg/dL (7-18); BUN/Creat Ratio 15.1 RATIO (10-20); Calcium,Total 8.5 mg/dL (8.5-10.1); Chloride 106 mmol/L (98-107); Creatinine, Serum 0.99 mg/dL (0.55-1.02); EST Glomerular Filtration Rate 65 mL/min (>60); Est Glom Filt Rate - Afr Amer 79 mL/min (>60); Estimated Creatinine Clearance 80.82 ml/min; Glucose 366 mg/dL (74-106); Potassium 4.1 mmol/L (3.5-5.1); Sodium Level 136 mmol/L (136-145)
--- NOTE | 2024-07-11 18:09 | CT_ITS ---
EXAM: BRAIN/HEAD WITHOUT CONTRAST CLINICAL HISTORY: 43-year-old female, unilateral headache and left-sided visual disturbance. Left-sided weakness and facial numbness. COMPARISON: Prior CT head 09/2022. TECHNIQUE: Routine CT imaging of the head without IV contrast. Additional multiplanar reformats were obtained. Dose reduction techniques were used including intermediate exposure control (AEC),iterative reconstruction technique, and/or mA and/or KV dose adjustments based on patient's size. FINDINGS: No acute intracranial hemorrhage or mass effect. The araiza-white matter interfaces are maintained. The ventricles and subarachnoid spaces are normal size. The mastoids and visualized paranasal sinuses are well-aerated. Unremarkable orbits. No calvarial fracture or scalp laceration. CT/Brain/Head without Contrast IMPRESSION: Unremarkable CT head. Reading Location: [id number]
[2024-07-11 18:13] LABS: International Normalized Ratio 0.9; Prothrombin Time (Protime)PT. 12.3 SECONDS (11.7-14.9)
[2024-07-11 18:14] LABS: Partial Thromboplast Time 26.1 Seconds (24.1-36.2)
[2024-07-11 18:54] LABS: Bedside Glucose 302 mg/dL (74-106)
[2024-07-11] MEDS: Ketorolac 15 MG/ML Vial IV (20:31)
[2024-07-11] MEDS: Metoclopramide 10 MG/2 ML Vial IV (20:32)
[2024-07-11] MEDS: DiphenhydrAMINE 50 MG/ML Syringe 25 MG IV (20:32)
--- NOTE | 2024-07-11 20:47 | EX.ED.DYSGE1 ---
HPI History of Present Illness Chief Complaint: Neuro S/Sx Detail of Chief Complaint: Unilateral headache with nausea and visual disturbance Informant: patient Onset/Context/Timing Onset: Days (Onset Monday, July 06.) Context: Sudden Onset Timing: Continuous Quality: Throbbing left-sided headache, history of migraine Location: Left side of head Current Severity: Moderate Maximum Severity: Severe Worsened by: Possibly light Relieved by: Nothing Associated Symptoms Associated Symptoms: Increased numbness Narrative Narrative: Patient is a 43-year-old woman. She has history of diabetes with poor compliance, polyneuropathy lipomeningocele and migraines. She saw her neurologist with placed on meds with no improvement. She was instructed to come to the emergency department. She complains of increased numbness from baseline. She denies fever, chills night sweats. She has renal ears decreased hearing. Denies trouble speech or swallowing. She denies cardiac or respiratory symptoms. She denies GI symptoms. She has a suprapubic catheter in place. Patient walks with some difficulty. There is no significant difference. 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 Diabetic polyneuropathy Non-smoker Weakness Hyperglycemia Sepsis Urinary tract infection Diabetic foot infection Urinary tract infection Thyroid cyst Hematochezia Chronic nausea Insomnia PSVT (paroxysmal supraventricular tachycardia) Panic attacks Hyperlipidemia Lipomeningocele History of kidney stones Essential hypertension Dysthymic disorder DJD (degenerative joint disease) of thoracic spine Arthritis Anxiety and depression Uninodular goiter Non-compliance UTI (urinary tract infection) Cellulitis of left lower extremity Infection of bladder catheter Ulcer of left heel and midfoot with fat layer exposed Sepsis Lower extremity edema Delayed wound healing Type 2 diabetes mellitus with diabetic polyneuropathy Diabetic ulcer of left heel with fat layer exposed Normochromic normocytic anemia Constipation Neurogenic bowel Neurogenic bladder Hydronephrosis of right kidney UTI (urinary tract infection) Diabetes mellitus, type II Morbid obesity with BMI of 40.0-44.9, adult Spina bifida aperta of lumbar spine History of migraine Chronic back pain Home Medications ?Medication ?Instructions ?Recorded ?Last Taken ?Type furosemide 20 mg tablet 20 mg PO 2200 fluid 08/28/18 10/06/23 History furosemide 40 mg tablet 40 mg PO BREAKFAST fluid 04/05/19 10/06/23 History oxybutynin chloride 15 mg 15 mg PO DAILY bladder 11/12/19 10/06/23 History tablet,extended release 24 hr acetaminophen 500 mg tablet 1,000 mg PO TID PRN PRN Pain Or 02/12/20 09/24/20 19:24 History Fever trazodone 100 mg tablet 100 mg PO QHS sleep 01/19/21 10/06/23 History atorvastatin 80 mg tablet 80 mg PO DAILY cholesterol 01/29/21 10/06/23 History pen needle, diabetic 32 gauge x #400 ea 03/05/21 Unknown Rx (BD Ultra-Fine Hope Pen Needle) lisinopril 5 mg tablet 2.5 mg (1/2 x 5 mg) PO DAILY #90 01/21/22 10/06/23 Rx tabs insulin glargine 100 unit/mL (3 33 unit (0.33 mL) subcut QHS dm 09/01/22 10/06/23 Rx mL) subcutaneous pen (Lantus #30 mL Solostar U-100 Insulin) pen needle, diabetic 32 gauge x #350 ea 09/01/22 Unknown Rx (BD Ultra-Fine Hope Pen Needle) duloxetine 30 mg capsule,delayed 30 mg PO DAILY 01/04/23 10/06/23 History release loratadine 10 mg tablet (Allergy 10 mg PO DAILY 11/07/23 Unknown History Relief (loratadine)) propranolol 20 mg tablet 20 mg PO BID 11/07/23 Unknown History insulin aspart See Rx Instructions subcut TID 02/10/24 Unknown History (niacinamide)(U-100) 100 unit/mL(3 mL) subcutaneous pen (Fiasp FlexTouch U-100 Insulin) pregabalin 75 mg capsule 75 mg PO BID 02/10/24 Unknown History ciprofloxacin HCl 500 mg tablet 500 mg PO BID #14 TABLETS 06/09/24 Unknown Rx hydrocodone-acetaminophen 5-325mg 1 tab PO Q6H PRN PRN Pain 3 days 06/09/24 Unknown Rx 5mg-325mg #12 TABLETS ondansetron 4 mg disintegrating 4 mg PO Q8H PRN PRN Nausea #20 tabs 06/09/24 Unknown Rx tablet insulin lispro 100 unit/mL 3 unit subcut DAILY 06/12/24 Unknown History subcutaneous pen Allergy/AdvReac Type Severity Reaction Status Date / Time Cephalosporins Allergy Severe Anaphylaxis Verified 07/11/24 17:17 piperacillin (From Zosyn) Allergy Intermediate Hives Verified 07/11/24 17:17 ceftriaxone (From Rocephin) Allergy Anaphylaxis Verified 07/11/24 17:17 mushroom Allergy Anaphylaxis Verified 07/11/24 17:17 peanut Allergy Anaphylaxis Verified 07/11/24 17:17 tazobactam (From Zosyn) Allergy NEEDS Verified 07/11/24 17:17 FOLLOW-UP fentanyl AdvReac Low blood Verified 07/11/24 17:17 pressure gabapentin AdvReac Other Verified 07/11/24 17:17 Gadolinium-MRI Contrast AdvReac Vomiting Verified 07/11/24 17:17 Medium Latex, Natural Rubber AdvReac Rash Verified 07/11/24 17:17 vancomycin AdvReac Rash Verified 07/11/24 17:17 Family History Mother CVA (cerebral vascular accident) Thyroid disorder Diabetes Hypertension Heart disease Hyperlipidemia Myocardial infarction, Onset Age: 54 mother had diabetes Father Cancer skin Grandmother Cancer liver Other Arthritis Skin cancer Surgical History S/P colostomy S/P thyroid biopsy (~11/06/19) history insertion suprapubic catheter Status post gastric surgery Hx of foot surgery Hx of ventral hernia repair History of spinal surgery History of cholecystectomy History of dilation and curettage Social History household members: significant other Smoking Status: Never smoker alcohol intake: current substance use type: does not use ROS ROS ED Constitutional Constitutional ED: Denies chills, fever(s), subjective, sweats or weight loss Eyes Eyes: Reports blurry vision bilateral; Denies change in vision or diplopia ENT ENT ED: Denies ear pain, rhinorrhea or sore throat Cardiovascular Cardiovascular: Denies chest pain, palpitations or racing heartbeat Respiratory/Chest Respiratory/Chest: Denies cough, dyspnea or dyspnea on exertion Gastrointestinal Gastrointestinal: Denies abdominal pain, nausea or vomiting Musculoskeletal Musculoskeletal: Denies arthralgias, back pain, myalgias or neck pain Integumentary Denies rash Neurologic Neurologic: Reports paresthesias RLE, LUE and LLE and weakness Endocrine Endocrinology: Denies cold intolerance, heat intolerance or polydipsia Hematologic/Lymphatic Hematologic/Lymphatic: Reports systems reviewed and no addt'l complaints, except as documented EXAM Physical Exam Const Vital Signs: 07/11/24 17:17 07/11/24 17:24 07/11/24 18:16 Temperature 97.2 F L Temperature Source Temporal Pulse Rate 88 83 Respiratory Rate 18 21 H Blood Pressure 169/105 H 123/78 H Blood Pressure Mean 126 93 Pulse Ox 99 97 Oxygen Delivery Method Room Air Room Air Room Air 07/11/24 19:00 07/11/24 20:00 07/11/24 21:00 Temperature Temperature Source Pulse Rate 74 80 85 Respiratory Rate 19 H 19 H 16 Blood Pressure 119/76 138/90 H 119/65 Blood Pressure Mean 90 106 83 Pulse Ox 97 100 97 Oxygen Delivery Method Room Air Room Air Room Air 07/11/24 22:00 Temperature Temperature Source Pulse Rate 70 Respiratory Rate 15 Blood Pressure 127/86 H Blood Pressure Mean 99 Pulse Ox 100 Oxygen Delivery Method Room Air Vital signs noted. Blood pressure slightly elevated labs were unremarkable. Positive well nourished and well developed Constitutional Narrative: BMI is 41.6. General Appearance ED: well developed, NAD and pallor; Negative for cyanotic or diaphoretic HEENT Reports moist mucous membranes HEENT Narrative: Head is atraumatic normocephalic. There is no tenderness over the temporal artery. TMs are normal. Ears normal. Nares patent. Posterior pharynx out erythema or exudate. Uvula midline. No deviation with protrusion. Eyes PERRL and EOMs intact bilaterally General Eye ED: Negative for pale conjunctiva or scleral icterus Neck no lymphadenopathy, supple and no JVD Resp normal respiratory effort and clear to auscultation bilaterally Cardio regular rate, regular rhythm, S1 normal heart sound, S2 normal heart sound and no murmurs GI normal to inspection, nondistended, normoactive bowel sounds, non-tender, non-distended and no masses; Negative for hepatosplenomegaly Auscultation: normoactive bowel sounds Palpation: soft Narrative: Suprapubic catheter noted. Back/Spine no CVA tenderness Extremity Negative for normal to inspection General Extremety ED: Yes edema; Negative for tenderness General Extremity: edema Neuro oriented x3, CN's II-XII intact bilaterally and No no sensory deficits noted Neuro Narrative: Altered sensation left side of the face, left upper extremity, left lower extremity and right lower extremity. Motor Exam: Negative for strength 5/5 throughout Psych mental status grossly normal Mood & Affect: Negative for anxious or tearful Skin no rashes or lesions noted, no wounds and skin turgor normal General Skin Exam: pallor; Negative for jaundice MDM MDM MDM Narrative Medical decision making narrative: Because of worsening headache and spite of appropriate medication for migraine obtain CT of the head specially since she is also complaining of increased neurologic symptoms. This was obtained to rule out hemorrhage or mass effect. After reviewing the CT and no abnormality seen by my review she was treated with IV Toradol, Reglan and Benadryl for her unilateral headache which is most likely an intractable migraine. Because she is diabetic and poorly controlled BMP was obtained assess glucose, CO2 anion gap and renal function. CBC to assess white count. History & Record Review Additional record(s) reviewed:: Prior outpatient record (Records from outside facility were entered April 17 for dysphagia.), Prior ED visit (Seen June 12 for abdominal pain and June 09 for abdominal pain. February 2024 for nausea and anxiety. She had several visits in 2023.) and Prior labs Lab Data Labs: Laboratory Results - last 24 hr 07/11/24 07/11/24 17:40 18:35 WBC 8.2 RBC 4.71 Hgb 14.2 Hct 42.1 MCV 89.4 MCH 30.1 MCHC 33.7 RDW Std Deviation 43.2 RDW Coeff of Claude 13.1 Plt Count 205 MPV 10.5 Immature Gran % (Auto) 1.100 H Neut % (Auto) 54.7 Lymph % (Auto) 32.8 Gibson % (Auto) 9.2 Eos % (Auto) 1.5 Baso % (Auto) 0.7 Absolute Neuts (auto) 4.5 Absolute Lymphs (auto) 2.70 Nucleated RBC % 0 PT 12.3 INR 0.9 APTT 26.1 Sodium 136 Potassium 4.1 Chloride 106 Carbon Dioxide 21.0 Anion Gap 9 BUN 15 Creatinine 0.99 Estim Creat Clear Calc 80.82 Est GFR (MDRD) Af Amer 79 Est GFR (MDRD) Non-Af 65 BUN/Creatinine Ratio 15.1 Glucose 366 H Calcium 8.5 POC Glucose 302 H Radiography Diagnostic Testing: Clinical Impression(s) from Imaging Studies Chest X-Ray 07/11/24 17:46 IMPRESSION: NEGATIVE CHEST. Reading Location: [facility] Brain CT 07/11/24 18:09 IMPRESSION: Unremarkable CT head. Reading Location: [facility] Treatment and Re-Evaluation :: Patient was reassessed at 2218. Her headache improved markedly. She had to be awakened from sleep. She was informed of CAT scan results and laboratory results. Discharge Plan Triage Chief Complaint: Neuro S/Sx ED Provider: Dre Deal Dx/Rx/DC Orders Clinical Impression: Intractable chronic migraine with aura with status migrainosus, Diabetes mellitus with diabetic polyneuropathy, Noncompliance with diabetes treatment Instructions: ED, Migraine (Classical) Prescriptions: No Action atorvastatin 80 mg tablet 80 mg PO DAILY Patient Comments: Take 1 tablet by mouth once daily. (DME) pen needle, diabetic [BD Ultra-Fine Hope Pen Needle] 32 gauge x 5/32 needle See Rx Instructions .ROUTE .MEDSUPPLY Qty: 400 6RF Rx Instructions: 4x/day insulin glargine [Lantus Solostar U-100 Insulin] 100 unit/mL (3 mL) insulin pen 33 unit SC QHS Qty: 30 1RF (DME) pen needle, diabetic [BD Ultra-Fine Hope Pen Needle] 32 gauge x 5/32 needle See Rx Instructions .ROUTE .MEDSUPPLY Qty: 350 1RF Rx Instructions: 4 times daily furosemide 20 MG tablet 20 mg PO 2200 Rx Instructions: 20 mg in the evening furosemide 40 MG tablet 40 mg PO BREAKFAST oxybutynin chloride 15 mg tablet extended release 24hr 15 mg PO DAILY acetaminophen 500 MG tablet 1,000 mg PO TID PRN PRN (Reason: Pain Or Fever) trazodone 100 mg tablet 100 mg PO QHS Patient Comments: Take 1 tablet by mouth daily at bedtime. lisinopril 5 mg tablet 2.5 mg PO DAILY Qty: 90 3RF Rx Instructions: Hold for SBP less than 130 mmHg duloxetine 30 mg capsule,delayed release(DR/EC) 30 mg PO DAILY Patient Comments: TAKE 1 CAPSULE BY MOUTH DAILY hydrocodone-acetaminophen 5-325 mg tablet 1 tab PO Q6H PRN PRN (Reason: Pain) 3 Days Qty: 12 0RF ciprofloxacin HCl 500 mg tablet 500 mg PO BID Qty: 14 0RF ondansetron 4 mg tablet,disintegrating 4 mg PO Q8H PRN PRN (Reason: Nausea) Qty: 20 0RF propranolol 20 mg tablet 20 mg PO BID loratadine [Allergy Relief (loratadine)] 10 mg tablet 10 mg PO DAILY pregabalin 75 mg capsule 75 mg PO BID Fiasp FlexTouch U-100 Insulin 100 unit/mL (3 mL) insulin pen See Rx Instructions subcut TID Rx Instructions: Inject 20 units with meals (three times daily) PLUS SS#2 (2 units for every 50 over 150 PRE MEAL blood sugar) TDD90 units daily insulin lispro 100 unit/mL insulin pen 3 unit subcut DAILY Rx Instructions: sliding scale Primary Care Provider: Will Shukla Referrals: Will Shukla MD [Primary Care Provider] - 1 Week if not improving Print Language: Swazi Disposition Disposition: Home, Self Care
== END 2024-07-11 22:58 | disposition home or self-care (01) ==
PROVIDERS: Emergency Provider Emergency Medicine; PCP Family Medicine; Visit Provider Emergency Medicine
DX: G43.E11 Chronic migraine with aura, intractable, with status migrainosus (principal); E66.01 Morbid (severe) obesity due to excess calories; Z68.41 Body mass index [BMI] 40.0-44.9, adult; E11.22 Type 2 diabetes mellitus with diabetic chronic kidney disease; E11.42 Type 2 diabetes mellitus with diabetic polyneuropathy; F41.9 Anxiety disorder, unspecified; R13.10 Dysphagia, unspecified; Z91.199 Patient's noncompliance with other medical treatment and regimen due to unspecified reason; H91.90 Unspecified hearing loss, unspecified ear; I12.9 Hypertensive chronic kidney disease with stage 1 through stage 4 chronic kidney disease, or unspecified chronic kidney disease; E78.5 Hyperlipidemia, unspecified; N18.9 Chronic kidney disease, unspecified; Z90.49 Acquired absence of other specified parts of digestive tract; Z98.84 Bariatric surgery status
CPT/HCPCS: 70450; 71045; 80048; 82962; 85025; 85610; 85730; 93005; 96374; 96375; 99284; A4216

== ENCOUNTER 2024-07-31 15:04 | Emergency (ER) | payer MEDICARE, MEDICAID, SELFPAY ==
[2024-07-31 15:05] VITALS: BP 120/77; PULSE 105; RESP 16; TEMP 36.7; O2SAT 98
--- NOTE | 2024-07-31 15:59 | EDS_ITS ---
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 Diabetic polyneuropathy Non-smoker Weakness Hyperglycemia Sepsis Urinary tract infection Diabetic foot infection Urinary tract infection Thyroid cyst Hematochezia Chronic nausea Insomnia PSVT (paroxysmal supraventricular tachycardia) Panic attacks Hyperlipidemia Lipomeningocele History of kidney stones Essential hypertension Dysthymic disorder DJD (degenerative joint disease) of thoracic spine Arthritis Anxiety and depression Uninodular goiter Non-compliance UTI (urinary tract infection) Cellulitis of left lower extremity Infection of bladder catheter Ulcer of left heel and midfoot with fat layer exposed Sepsis Lower extremity edema Delayed wound healing Type 2 diabetes mellitus with diabetic polyneuropathy Diabetic ulcer of left heel with fat layer exposed Normochromic normocytic anemia Constipation Neurogenic bowel Neurogenic bladder Hydronephrosis of right kidney UTI (urinary tract infection) Diabetes mellitus, type II Morbid obesity with BMI of 40.0-44.9, adult Spina bifida aperta of lumbar spine History of migraine Chronic back pain Home Medications ?Medication ?Instructions ?Recorded ?Last Taken ?Type furosemide 20 mg tablet 20 mg PO 2200 fluid 08/28/18 10/06/23 History furosemide 40 mg tablet 40 mg PO BREAKFAST fluid 01/1410/06/23 History oxybutynin chloride 15 mg 15 mg PO DAILY bladder 11/1110/06/23 History tablet,extended release 24 hr acetaminophen 500 mg tablet 1,000 mg PO TID PRN PRN Pa in Or 02/12/20 09/24/20 19:24 History Fever trazodone 100 mg tablet 100 mg PO QHS sleep 01/19/21 10/06/23 History atorvastatin 80 mg tablet 80 mg PO DAILY cholesterol 0 01/29/21 10/06/23 History pen needle, diabetic 32 gauge x #400 ea 03/05/21 Unkno wn Rx (BD Ultra-Fine Hope Pen Needle) lisinopril 5 mg tablet 2.5 mg (1/2 x 5 mg) PO DAILY #90 01/21/22 10/06/23 Rx tabs insulin glargine 100 unit/mL (3 33 unit (0.33 mL) subc ut QHS dm 09/01/22 10/06/23 Rx mL) subcutaneous pen (Lantus #30 mL Solostar U-100 Insulin) pen needle, diabetic 32 gauge x #350 ea 09/01/22 Unkno wn Rx 32 (BD Ultra-Fine Hope Pen Needle) duloxetine 30 mg capsule,delayed 30 mg PO DAILY 10/06/23 History release loratadine 10 mg tablet (Allergy 10 mg PO DAILY Unknown History Relief (loratadine)) propranolol 20 mg tablet 20 mg PO BID 11/07/23 Unknow n History insulin aspart See Rx Instructions subcut T ID 02/10/24 Unknown History (niacinamide)(U-100) 100 unit/mL(3 mL) subcutaneous pen (Fiasp FlexTouch U-100 Insulin) pregabalin 75 mg capsule 75 mg PO BID 02/10/24 Unknow n History ciprofloxacin HCl 500 mg tablet 500 mg PO BID #14 TABL ETS 06/09/24 Unknown Rx hydrocodone-acetaminophen 5-325mg 1 tab PO Q6H PRN PRN Pain 3 days 06/09/24 Unknown Rx 5mg-325mg #12 TABLETS ondansetron 4 mg disintegrating 4 mg PO Q8H PRN PRN Na usea #20 tabs 06/09/24 Unknown Rx tablet insulin lispro 100 unit/mL 3 unit subcut DAILY 5 Unknown History subcutaneous pen Allergy/AdvReac Type Severity Reaction Status Date / Time Cephalosporins Allergy Severe Anaphylaxis Verified 07/11/24 17:17 piperacillin (From Zosyn) Allergy Intermediate Hives Verified 07/11/24 17:17 ceftriaxone (From Rocephin) Allergy Anaphylaxis Verified 07/11/24 17:17 mushroom Allergy Anaphylaxis Verified 07/11/24 17:17 peanut Allergy Anaphylaxis Verified 07/11/24 17:17 tazobactam (From Zosyn) Allergy NEEDS Verified 07/11/24 17:17 FOLLOW-UP fentanyl AdvReac Low blood Verified 07/11/24 17:17 pressure gabapentin AdvReac Other Verified 07/11/24 17:17 Gadolinium-MRI Contrast AdvReac Vomiting Verified 07/11/24 17:17 Medium Latex, Natural Rubber AdvReac Rash Verified 07/11/24 17:17 vancomycin AdvReac Rash Verified 07/11/24 17:17 Family History Mother CVA (cerebral vascular accident) Thyroid disorder Diabetes Hypertension Heart disease Hyperlipidemia Myocardial infarction, Onset Age: 54 mother had diabetes Father Cancer skin Grandmother Cancer liver Other Arthritis Skin cancer Surgical History S/P colostomy S/P thyroid biopsy (~11/06/19) history insertion suprapubic catheter Status post gastric surgery Hx of foot surgery Hx of ventral hernia repair History of spinal surgery History of cholecystectomy History of dilation and curettage Social History household members: significant other Smoking Status: Never smoker alcohol intake: current substance use type: does not use EXAM Physical Exam Const Vital Signs: 07/31/24 15:05 07/31/24 17:56 07/31/24 19:00 Temperature 98.1 F 100.6 F H Temperature Source Temporal Oral Pulse Rate 105 H 104 H 90 Respiratory Rate 16 18 16 Blood Pressure 120/77 101/80 108/73 Blood Pressure Mean 91 87 84 Pulse Ox 98 97 97 Oxygen Delivery Method Room Air Room Air 07/31/24 19:00 07/31/24 19:21 Temperature 99.3 F H 99.3 F H Temperature Source Oral Pulse Rate 86 86 Respiratory Rate 22 H 22 H Blood Pressure 103/80 103/80 Blood Pressure Mean 87 87 Pulse Ox 96 96 Oxygen Delivery Method Room Air [facility] MDM MDM Narrative Medical decision making narrative: HISTORY OF PRESENT ILLNESS: 43-year-old female presents concern for left foot wound. Does not clear how long the wound has been there but she thinks it could be infected. REVIEW OF SYSTEMS: Pertinent positives: Foot infection, fever, nausea Pertinent negatives: Vomiting PHYSICAL EXAM: Nursing triage notes reviewed, Vital signs reviewed Constitutional: please see mdm Extremities: No obvious edema. Left foot has a amputated first digit. The site is clean dry and intact. Compartments are soft. Intact pulses in bilateral lower extremities. Good cap refill. Both extremities are warm and well- perfused. Neuro: Intact sensation L1-S1 dermatomal distributions. Intact 5/5 strength in hip flexion (T12-L3). Knee extension (L2-L4). Ankle dorsiflexion (L4-L5). Ankle plantar flexion (S1). Great toe extension (L5). 2+ patellar and Achilles DTRs. Skin: There is confluent erythema noted from the mid calf down to the foot. There is some skin discoloration (likely hygiene related) noted to the heel but no obvious sign of infection. No sign of necrosis. No purulence. No crepitus or bullae. No obvious palpable abscess. Initial exam clinically consistent with likely cellulitis MEDICAL DECISION MAKING: Chief Complaint: Foot wound External records reviewed: Reviewed prior ED notes, reviewed prior allergies, reviewed problem list, reviewed current medications Factors affecting care: History of type 2 diabetes, depression, CKD, colostomy, superior catheter, obesity MDM Narrative: The patient was initially slightly tachycardic otherwise afebrile nontoxic- appearing. Initial exam consistent with cellulitis. Concern for deeper infection/osteomyelitis. Patient was initially hemodynamically stable, afebrile and nontoxic-appearing. She saturating well on room air. I considered the following differential diagnosis: Cellulitis, osteomyelitis I obtained a broad lab and imaging workup to further elucidate etiology patient complaints specifically ruling out signs of sepsis, systemic inflammation. Obtain an x-ray to rule out any bony abnormality. ALL IMAGES (IF OBTAINED) HAVE BEEN PERSONALLY REVIEWED AND INTERPRETED BY MYSELF. X-ray of the left foot was read reviewed personally self and showed no evidence of obvious bony abnormality. Radiologist did not note any evidence of osteomyelitis. While this is not the most sensitive test it certainly does not show signs of osteomyelitis CBC with marked leukocytosis suggestive of systemic summation likely secondary to cellulitis, no anemia or thrombocytopenia BMP without significant electrolyte maladies, there is a very mild metabolic acidosis but no anion gap to suggest endorgan hypoperfusion patient's blood sugar was elevated on this study and poorly controlled consistent with poorly controlled diabetes.. Lactate is wnl indicating no end-organ hypoperfusion and/or hypoxia. CRP elevated consistent with systemic inflammation however ESR is negative Had a shared decision-making discussion with the patient. Shared with her some of the concerning signs about her labs images including elevated white blood cell count, metabolic acidosis. She had I thought these were associated with cellulitis. Noted diabetes risk factor however she is not vomiting she was able to tolerate p.o. antibiotics. She has a normal GI tract. There is no indication for IV antibiotics at this time. Did offer inpatient admission however the patient I came to agreement that she would try oral antibiotics at home for the next 3 to 5 days to see how her symptoms progress. She is given strict return precautions and a low threshold to return given diabetes and signs of systemic inflammation. Patient understood and agreed to return if symptoms change or worsen. She was discharged with Bactrim and Reglan to take as needed. The patient and/or family, caregivers express understanding. The patient and/or family, caregivers agrees with the plan. Shared decision making: I will have a discussion with the patient and or visitors regarding risk/benefits of further testing or admission. They will be made aware of of the risk/benefits inherent in this decision they will be given the opportunity to voice understanding. Total critical care time today provided was at least 0 minutes. This excludes separately billable procedures. Critical care time (if documented) is secondary to the patient having high probability of clinically significant/life threatening deterioration in the patient's condition which required my urgent intervention. Impression: 1. Cellulitis 2. Type 2 diabetes 3. Leukocytosis 4. Hyperglycemia 5. Leukocytosis Dispo: Discharge home This note was generated with [employer] dictation software. It may contain incorrect words, spelling, and punctuation that were not noted in review of the chart prior to signing. Lab Data Labs: Laboratory Results - last 24 hr 07/31/24 07/31/24 15:52 16:24 WBC 18.5 H RBC 4.38 Hgb 13.5 Hct 38.9 MCV 88.8 MCH 30.8 MCHC 34.7 RDW Std Deviation 42.6 RDW Coeff of Claude 13.0 Plt Count 194 MPV 10.7 Immature Gran % (Auto) 0.600 Neut % (Auto) 81.7 H Lymph % (Auto) 10.8 L [place] % (Auto) 5.9 Eos % (Auto) 0.6 Baso % (Auto) 0.4 Absolute Neuts (auto) 15.1 H Absolute Lymphs (auto) 1.99 Nucleated RBC % 0 ESR 19 Sodium 133 Potassium 4.4 Chloride 100 Carbon Dioxide 19.5 L Anion Gap 14 BUN 15 Creatinine 0.94 Est GFR (MDRD) Non-Af 78 BUN/Creatinine Ratio 15.4 Glucose 311 H Lactic Acid 1.4 Calcium 9.1 C-React Prot Ext Range 21.90 H Radiography Diagnostic Testing: Clinical Impression(s) from Imaging Studies Foot X-Ray 07/31/24 16:44 IMPRESSION: Soft tissue edema with mild degenerative changes and remote postsurgical findings. No acute fractures or osseous erosions in the left foot. [facility] T[facility] Chief Complaint: Wound ED Provider: Ron Hernandez Dx/Rx/DC Orders Prescriptions: No Action atorvastatin 80 mg tablet 80 mg PO DAILY Patient Comments: Take 1 tablet by mouth once daily. (DME) pen needle, diabetic [BD Ultra-Fine Hope Pen Needle] 32 gauge x 5/32 needle See Rx Instructions .ROUTE .MEDSUPPLY Qty: 400 6RF Rx Instructions: 4x/day insulin glargine [Lantus Solostar U-100 Insulin] 100 unit/mL (3 mL) insulin pen 33 unit SC QHS Qty: 30 1RF (DME) pen needle, diabetic [BD Ultra-Fine Hope Pen Needle] 32 gauge x 5/32 needle See Rx Instructions .ROUTE .MEDSUPPLY Qty: 350 1RF Rx Instructions: 4 times daily furosemide 20 MG tablet 20 mg PO 2200 Rx Instructions: 20 mg in the evening furosemide 40 MG tablet 40 mg PO BREAKFAST oxybutynin chloride 15 mg tablet extended release 24hr 15 mg PO DAILY acetaminophen 500 MG tablet 1,000 mg PO TID PRN PRN (Reason: Pain Or Fever) trazodone 100 mg tablet 100 mg PO QHS Patient Comments: Take 1 tablet by mouth daily at bedtime. lisinopril 5 mg tablet 2.5 mg PO DAILY Qty: 90 3RF Rx Instructions: Hold for SBP less than 130 mmHg duloxetine 30 mg capsule,delayed release(DR/EC) 30 mg PO DAILY Patient Comments: TAKE 1 CAPSULE BY MOUTH DAILY hydrocodone-acetaminophen 5-325 mg tablet 1 tab PO Q6H PRN PRN (Reason: Pain) 3 Days Qty: 12 0RF ciprofloxacin HCl 500 mg tablet 500 mg PO BID Qty: 14 0RF ondansetron 4 mg tablet,disintegrating 4 mg PO Q8H PRN PRN (Reason: Nausea) Qty: 20 0RF propranolol 20 mg tablet 20 mg PO BID loratadine [Allergy Relief (loratadine)] 10 mg tablet 10 mg PO DAILY pregabalin 75 mg capsule 75 mg PO BID Fiasp FlexTouch U-100 Insulin 100 unit/mL (3 mL) insulin pen See Rx Instructions subcut TID Rx Instructions: Inject 20 units with meals (three times daily) PLUS SS#2 (2 units for every 50 over 150 PRE MEAL blood sugar) TDD90 units daily insulin lispro 100 unit/mL insulin pen 3 unit subcut DAILY Rx Instructions: sliding scale Primary Care Provider: Will Shukla Referrals: Will Shukla MD [Primary Care Provider] - Print Language: Thai
[2024-07-31 16:01] LABS: Absolute Lymphocyte Count 1.99 X10^3/uL (0.83-4.51); Absolute Neutrophil Count 15.1 X10^3/uL (2.0-7.7); Basophil# 0.07 X10^3/uL; Basophil% 0.4 % (0-1); Eosinophil# 0.11 X10^3/uL; Eosinophils% 0.6 % (0-5); Hematocrit 38.9 % (37-47); Hemoglobin 13.5 g/dL (12.0-15.0); Lymphocyte # 1.99 X10^3/ul (0.83-4.51); Lymphocyte % 10.8 % (19-41); Mean Corp Hgb Conc 34.7 g/dL (32-36); Mean Corpuscular Hgb 30.8 pg (27.0-32.0); Mean Corpuscular Volume 88.8 fL (81-99); Mean Platelet Vol. 10.7 fl (6.2-12.0); Monocyte% 5.9 % (0-10); NRBC Flagged by Analyzer 0 % (0-5); Neutrophil # 15.11 X10^3/uL (2.7-7.7); Neutrophil % 81.7 % (47-70); Platelet Count 194 K/mm3 (150-450); RBC Distribution Width SD 42.6 fl (35.1-43.9); Red Blood Count 4.38 M/mm3 (4.2-5.4); White Blood Count 18.5 K/mm3 (4.4-11.0)
[2024-07-31] MEDS: Ketorolac 15 MG/ML Vial IV (16:33)
[2024-07-31] MEDS: 0.9% Normal Saline (500mL Bag) 500 ML 1000 ML IV (16:33)
[2024-07-31] MEDS: Ondansetron 4 MG/2 ML Vial IV (16:33)
[2024-07-31 16:39] LABS: Anion Gap 14 (5-15); BUN 15 mg/dL (4-19); BUN/Creat Ratio 15.4 RATIO (10-20); Calcium,Total 9.1 mg/dL (7.6-11.0); Carbon Dioxide 19.5 mmol/L (21.0-32.0); Chloride 100 mmol/L (98-108); Creatinine, Serum 0.94 mg/dL (0.70-1.20); EST Glomerular Filtration Rate 78 (>60); Glucose 311 mg/dL (70-99); Potassium 4.4 mmol/L (3.3-5.1); Sodium Level 133 mmol/L (133-145)
[2024-07-31 16:41] LABS: Erythrocyte Sedimentation Rate 19 mm/hr (0-30)
--- NOTE | 2024-07-31 16:44 | RAD_ITS ---
PROCEDURE: FOOT MIN 3 VIEWS REASON FOR EXAM: Diabetic foot ulcer, heel wound TECHNIQUE: 3 view(s) of left foot COMPARISON: 01/29/2023 FINDINGS: LEFT FOOT: Remote distal 1st phalanx and distal metatarsal amputations. No acute fracture or osseous erosions. Dorsal and calcaneal spurs. Normal alignment. Soft tissue edema. RAD/Foot min 3 Views IMPRESSION: Soft tissue edema with mild degenerative changes and remote postsurgical findin gs. No acute fractures or osseous erosions in the left foot. Reading Location: [facility]
[2024-07-31 17:39] LABS: Lactic Acid 1.4 mmol/L (0.0-2.0)
[2024-07-31 17:56] VITALS: BP 101/80; PULSE 104; RESP 18; TEMP 38.1; O2SAT 97
[2024-07-31 18:05] VITALS: BMI 42.9
[2024-07-31] MEDS: Metoclopramide 10 MG/2 ML Vial 5 MG IV (18:11)
[2024-07-31] MEDS: Acetaminophen 325 MG Tablet 650 MG PO (18:12)
[2024-07-31] MEDS: Smz/Tmp Ds Tablet 1 TABLET PO (18:12)
[2024-07-31 19:00] VITALS: BP 103/80; BP 108/73; PULSE 86; PULSE 90; RESP 16; RESP 22; TEMP 37.4; O2SAT 96; O2SAT 97
[2024-07-31 19:21] VITALS: BP 103/80; PULSE 86; RESP 22; TEMP 37.4; O2SAT 96
--- NOTE | 2024-07-31 19:27 | PCM.HP.STD ---
HPI - General General Date of Admission: 07/31/24 Date of Service: 07/31/24 Chief Complaint: L diabetic foot wound, concern for infection. HPI Narrative Who presents to the [facility] ED on 07/31/2024 with history of persistent left foot wound of unclear duration with concern for possible infection Workup in the ED included T98.1, heart rate 105, BP 120/77, respiratory rate 16, 90% on room air with Tmax in the ED 100.6 orally, most recent repeat vital signs T99.3, heart rate 86, BP 103/80, respiratory rate 22, 96% on room air, CBC with WC 18.5, human 13.5, platelet 194 with left shift, BMP with A 19.5, glucose 311, CRP 21.90, ESR 19, lactic acid 1.4, plain film of the left foot with soft tissue edema and mild degenerative changes and remote postsurgical findings with no acute fracture or osseous erosion in the left foot status post a remote distal first phalanx and distal metatarsal amputation of note. In the ED patient ministered Bactrim 1 tab p.o. x 1, Zofran 4 mg IV x 1, Reglan 5 mg IV x 1, Toradol 50 mg IV x 1, acetaminophen 650 mg p.o. x 1. 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 Diabetic polyneuropathy Non-smoker Weakness Hyperglycemia Sepsis Urinary tract infection Diabetic foot infection Urinary tract infection Thyroid cyst Hematochezia Chronic nausea Insomnia PSVT (paroxysmal supraventricular tachycardia) Panic attacks Hyperlipidemia Lipomeningocele History of kidney stones Essential hypertension Dysthymic disorder DJD (degenerative joint disease) of thoracic spine Arthritis Anxiety and depression Uninodular goiter Non-compliance UTI (urinary tract infection) Cellulitis of left lower extremity Infection of bladder catheter Ulcer of left heel and midfoot with fat layer exposed Sepsis Lower extremity edema Delayed wound healing Type 2 diabetes mellitus with diabetic polyneuropathy Diabetic ulcer of left heel with fat layer exposed Normochromic normocytic anemia Constipation Neurogenic bowel Neurogenic bladder Hydronephrosis of right kidney UTI (urinary tract infection) Diabetes mellitus, type II Morbid obesity with BMI of 40.0-44.9, adult Spina bifida aperta of lumbar spine History of migraine Chronic back pain Home Medications ?Medication ?Instructions ?Recorded ?Last Taken ?Type furosemide 20 mg tablet 20 mg PO 2200 fluid 08/28/18 10/06/23 History furosemide 40 mg tablet 40 mg PO BREAKFAST fluid 04/05/19 10/06/23 History oxybutynin chloride 15 mg 15 mg PO DAILY bladder 11/12/19 10/06/23 History tablet,extended release 24 hr acetaminophen 500 mg tablet 1,000 mg PO TID PRN PRN Pain Or 02/12/20 09/24/20 19:24 History Fever trazodone 100 mg tablet 100 mg PO QHS sleep 01/19/21 10/06/23 History atorvastatin 80 mg tablet 80 mg PO DAILY cholesterol 01/29/21 10/06/23 History pen needle, diabetic 32 gauge x #400 ea 03/05/21 Unknown Rx (BD Ultra-Fine Hope Pen Needle) lisinopril 5 mg tablet 2.5 mg (1/2 x 5 mg) PO DAILY #90 01/21/22 10/06/23 Rx tabs insulin glargine 100 unit/mL (3 33 unit (0.33 mL) subcut QHS dm 09/01/22 10/06/23 Rx mL) subcutaneous pen (Lantus #30 mL Solostar U-100 Insulin) pen needle, diabetic 32 gauge x #350 ea 09/01/22 Unknown Rx (BD Ultra-Fine Hope Pen Needle) duloxetine 30 mg capsule,delayed 30 mg PO DAILY 01/04/23 10/06/23 History release loratadine 10 mg tablet (Allergy 10 mg PO DAILY 11/07/23 Unknown History Relief (loratadine)) propranolol 20 mg tablet 20 mg PO BID 11/07/23 Unknown History insulin aspart See Rx Instructions subcut TID 02/10/24 Unknown History (niacinamide)(U-100) 100 unit/mL(3 mL) subcutaneous pen (Fiasp FlexTouch U-100 Insulin) pregabalin 75 mg capsule 75 mg PO BID 02/10/24 Unknown History ciprofloxacin HCl 500 mg tablet 500 mg PO BID #14 TABLETS 06/09/24 Unknown Rx hydrocodone-acetaminophen 5-325mg 1 tab PO Q6H PRN PRN Pain 3 days 06/09/24 Unknown Rx 5mg-325mg #12 TABLETS ondansetron 4 mg disintegrating 4 mg PO Q8H PRN PRN Nausea #20 tabs 06/09/24 Unknown Rx tablet insulin lispro 100 unit/mL 3 unit subcut DAILY 06/12/24 Unknown History subcutaneous pen Allergy/AdvReac Type Severity Reaction Status Date / Time Cephalosporins Allergy Severe Anaphylaxis Verified 07/11/24 17:17 piperacillin (From Zosyn) Allergy Intermediate Hives Verified 07/11/24 17:17 ceftriaxone (From Rocephin) Allergy Anaphylaxis Verified 07/11/24 17:17 mushroom Allergy Anaphylaxis Verified 07/11/24 17:17 peanut Allergy Anaphylaxis Verified 07/11/24 17:17 tazobactam (From Zosyn) Allergy NEEDS Verified 07/11/24 17:17 FOLLOW-UP fentanyl AdvReac Low blood Verified 07/11/24 17:17 pressure gabapentin AdvReac Other Verified 07/11/24 17:17 Gadolinium-MRI Contrast AdvReac Vomiting Verified 07/11/24 17:17 Medium Latex, Natural Rubber AdvReac Rash Verified 07/11/24 17:17 vancomycin AdvReac Rash Verified 07/11/24 17:17 Family History Mother CVA (cerebral vascular accident) Thyroid disorder Diabetes Hypertension Heart disease Hyperlipidemia Myocardial infarction, Onset Age: 54 mother had diabetes Father Cancer skin Grandmother Cancer liver Other Arthritis Skin cancer Surgical History S/P colostomy S/P thyroid biopsy (~11/06/19) history insertion suprapubic catheter Status post gastric surgery Hx of foot surgery Hx of ventral hernia repair History of spinal surgery History of cholecystectomy History of dilation and curettage Social History household members: significant other Smoking Status: Never smoker alcohol intake: current substance use type: does not use Vital Signs Vital Signs Vital Signs: 07/31/24 15:05 07/31/24 17:56 07/31/24 19:00 Temperature 98.1 F 100.6 F H Temperature Source Temporal Oral Pulse Rate 105 H 104 H 90 Respiratory Rate 16 18 16 Blood Pressure 120/77 101/80 108/73 Blood Pressure Mean 91 87 84 Pulse Ox 98 97 97 Oxygen Delivery Method Room Air Room Air 07/31/24 19:00 07/31/24 19:21 Temperature 99.3 F H 99.3 F H Temperature Source Oral Pulse Rate 86 86 Respiratory Rate 22 H 22 H Blood Pressure 103/80 103/80 Blood Pressure Mean 87 87 Pulse Ox 96 96 Oxygen Delivery Method Room Air Weight Weight: 227 lb 1.218 oz Body Mass Index (BMI) 42.9 Results Lab / Micro Data 07/31/24 15:52 07/31/24 15:52 Labs: Laboratory Results - last 24 hr 07/31/24 15:52: WBC 18.5 H, RBC 4.38, Hgb 13.5, Hct 38.9, MCV 88.8, MCH 30.8, MCHC 34.7, RDW Std Deviation 42.6, RDW Coeff of Claude 13.0, Plt Count 194, MPV 10.7, Immature Gran % (Auto) 0.600, Neut % (Auto) 81.7 H, Lymph % (Auto) 10.8 L, [place] % (Auto) 5.9, Eos % (Auto) 0.6, Baso % (Auto) 0.4, Absolute Neuts (auto) 15.1 H, Absolute Lymphs (auto) 1.99, Nucleated RBC % 0, Sodium 133, Potassium 4.4, Chloride 100, Carbon Dioxide 19.5 L, Anion Gap 14, BUN 15, Creatinine 0.94, Est GFR (MDRD) Non-Af 78, BUN/Creatinine Ratio 15.4, Glucose 311 H, Calcium 9.1 07/31/24 16:24: ESR 19, Lactic Acid 1.4, C-React Prot Ext Range 21.90 H Imaging Radiology Impression Foot X-Ray 07/31/24 16:44 IMPRESSION: Soft tissue edema with mild degenerative changes and remote postsurgical findings. No acute fractures or osseous erosions in the left foot. Reading Location: [facility]
== END 2024-07-31 19:56 | disposition home or self-care (01) ==
PROVIDERS: Emergency Provider Emergency Medicine; PCP Family Medicine; Visit Provider Emergency Medicine
DX: L03.116 Cellulitis of left lower limb (principal); Z93.3 Colostomy status; E11.65 Type 2 diabetes mellitus with hyperglycemia; E11.42 Type 2 diabetes mellitus with diabetic polyneuropathy; E11.22 Type 2 diabetes mellitus with diabetic chronic kidney disease; I12.9 Hypertensive chronic kidney disease with stage 1 through stage 4 chronic kidney disease, or unspecified chronic kidney disease; N18.9 Chronic kidney disease, unspecified; E66.9 Obesity, unspecified; E87.20 Acidosis, unspecified; D72.829 Elevated white blood cell count, unspecified; E78.5 Hyperlipidemia, unspecified; Z90.49 Acquired absence of other specified parts of digestive tract; Z87.440 Personal history of urinary (tract) infections; F32.A Depression, unspecified
CPT/HCPCS: 73630; 80048; 83605; 85025; 85652; 86140; 96361; 96374; 96375; 99282; A4216; J2405

== ENCOUNTER 2024-08-11 21:22 | Inpatient (IN) | payer MEDICARE, MEDICAID, SELFPAY ==
[2024-08-11] VITALS (15 sets, daily range): BP systolic 91–139; BP diastolic 71–82; PULSE 95–107; RESP 13–30; TEMP 37.8–38.5; O2SAT 89–100; BMI 41.6; BMI 41.3
[2024-08-11] MEDS: 0.9% Normal Saline (1000mL) 1,000 ML 1000 ML IV (21:53)
[2024-08-11] MEDS: morphine 8 MG/ML Syringe 6 MG IV (21:53)
[2024-08-11] MEDS: Ondansetron 4 MG/2 ML Vial IV (21:53)
--- NOTE | 2024-08-11 21:57 | EX.ED.DYSGE1 ---
HPI History of Present Illness Chief Complaint: Cellulitis Detail of Chief Complaint: Left lower extremity cellulitis. Informant: patient and spouse/S.O. Onset/Context/Timing Onset: Today Current Severity: Moderate Maximum Severity: Moderate Narrative Narrative: 43-year-old female history of diabetes, chronic kidney disease, colostomy. Patient was diagnosed and treated on July 31 for left lower extremity cellulitis. She was on Bactrim twice a day for 10 days. Said it was much better. He was getting better looked really good she did today she was feeling not well. And noticed that her left leg below the knee down to her foot was red and swollen again. She developed a fever as high as 1044. Took Tylenol prior to arrival. Has had nausea vomiting. Said her blood sugars have been 2-300. 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 Diabetic polyneuropathy Non-smoker Weakness Hyperglycemia Sepsis Urinary tract infection Diabetic foot infection Urinary tract infection Thyroid cyst Hematochezia Chronic nausea Insomnia PSVT (paroxysmal supraventricular tachycardia) Panic attacks Hyperlipidemia Lipomeningocele History of kidney stones Essential hypertension Dysthymic disorder DJD (degenerative joint disease) of thoracic spine Arthritis Anxiety and depression Uninodular goiter Non-compliance UTI (urinary tract infection) Cellulitis of left lower extremity Infection of bladder catheter Ulcer of left heel and midfoot with fat layer exposed Lower extremity edema Delayed wound healing Type 2 diabetes mellitus with diabetic polyneuropathy Diabetic ulcer of left heel with fat layer exposed Normochromic normocytic anemia Constipation Neurogenic bowel Neurogenic bladder Hydronephrosis of right kidney UTI (urinary tract infection) Diabetes mellitus, type II Morbid obesity with BMI of 40.0-44.9, adult Spina bifida aperta of lumbar spine History of migraine Chronic back pain Home Medications ?Medication ?Instructions ?Recorded ?Last Taken ?Type furosemide 20 mg tablet 20 mg PO 2200 fluid 08/28/18 10/06/23 History furosemide 40 mg tablet 40 mg PO BREAKFAST fluid 04/05/19 10/06/23 History oxybutynin chloride 15 mg 15 mg PO DAILY bladder 11/12/19 10/06/23 History tablet,extended release 24 hr acetaminophen 500 mg tablet 1,000 mg PO TID PRN PRN Pain Or 02/12/20 09/24/20 19:24 History Fever trazodone 100 mg tablet 100 mg PO QHS sleep 01/19/21 10/06/23 History atorvastatin 80 mg tablet 80 mg PO DAILY cholesterol 01/29/21 10/06/23 History pen needle, diabetic 32 gauge x #400 ea 03/05/21 Unknown Rx 532 (BD Ultra-Fine Hope Pen Needle) lisinopril 5 mg tablet 2.5 mg (1/2 x 5 mg) PO DAILY #90 01/21/22 10/06/23 Rx tabs pen needle, diabetic 32 gauge x #350 ea 09/01/22 Unknown Rx 32 (BD Ultra-Fine Hope Pen Needle) loratadine 10 mg tablet (Allergy 10 mg PO DAILY 11/07/23 Unknown History Relief (loratadine)) propranolol 20 mg tablet 20 mg PO BID 11/07/23 Unknown History insulin aspart See Rx Instructions subcut TID 02/10/24 Unknown History (niacinamide)(U-100) 100 unit/mL(3 mL) subcutaneous pen (Fiasp FlexTouch U-100 Insulin) pregabalin 75 mg capsule 75 mg PO BID 02/10/24 Unknown History ondansetron 4 mg disintegrating 4 mg PO Q8H PRN PRN Nausea #20 tabs 06/09/24 Unknown Rx tablet promethazine 25 mg tablet 25 mg PO TID PRN nausea and 07/31/24 Unknown Rx vomiting #20 tabs divalproex 500 mg tablet,delayed 500 mg PO QHS 08/11/24 Unknown History release insulin glargine 100 unit/mL (3 40 unit subcut QHS dm 08/11/24 Unknown History mL) subcutaneous pen (Lantus Solostar U-100 Insulin) omeprazole 20 mg capsule,delayed 20 mg PO DAILY 08/11/24 Unknown History release Allergy/AdvReac Type Severity Reaction Status Date / Time Cephalosporins Allergy Severe Anaphylaxis Verified 08/11/24 21:26 piperacillin (From Zosyn) Allergy Intermediate Hives Verified 08/11/24 21:26 ceftriaxone (From Rocephin) Allergy Anaphylaxis Verified 08/11/24 21:26 mushroom Allergy Anaphylaxis Verified 08/11/24 21:26 peanut Allergy Anaphylaxis Verified 08/11/24 21:26 tazobactam (From Zosyn) Allergy NEEDS Verified 08/11/24 21:26 FOLLOW-UP fentanyl AdvReac Low blood Verified 08/11/24 21:26 pressure gabapentin AdvReac Other Verified 08/11/24 21:26 Gadolinium-MRI Contrast AdvReac Vomiting Verified 08/11/24 21:26 Medium Latex, Natural Rubber AdvReac Rash Verified 08/11/24 21:26 vancomycin AdvReac Rash Verified 08/11/24 21:26 Family History Mother CVA (cerebral vascular accident) Thyroid disorder Diabetes Hypertension Heart disease Hyperlipidemia Myocardial infarction, Onset Age: 54 mother had diabetes Father Cancer skin Grandmother Cancer liver Other Arthritis Skin cancer Surgical History S/P colostomy S/P thyroid biopsy (~11/06/19) history insertion suprapubic catheter Status post gastric surgery Hx of foot surgery Hx of ventral hernia repair History of spinal surgery History of cholecystectomy History of dilation and curettage Social History household members: significant other Smoking Status: Never smoker alcohol intake: current substance use type: does not use ROS ROS ED ROS Narrative Fever. Nausea vomiting. Left leg cellulitis. Constitutional Constitutional ED: Reports chills and fever(s) Eyes Eyes: Denies blurry vision ENT ENT ED: Denies ear pain Cardiovascular Cardiovascular: Denies chest pain Respiratory/Chest Respiratory/Chest: Denies cough or dyspnea Gastrointestinal Gastrointestinal: Denies abdominal pain Genitourinary Genitourinary ED: Denies dysuria or hematuria Musculoskeletal Musculoskeletal: Denies arthralgias or back pain Integumentary Reports rash; Denies abscess or Abrasions Neurologic Neurologic: Denies headache(s) Psychiatric Psychiatric: Denies anxiety or depression Endocrine Endocrinology: Denies cold intolerance Hematologic/Lymphatic Hematologic/Lymphatic: Reports none Allergic/Immunologic Allergic/Immunologic ED: Denies mouth swelling, tongue swelling or urticaria EXAM Physical Exam Narrative Exam Narrative: 43-year-old female vital signs stable but she is febrile at 101.3 tachycardic 107. She does not look septic or toxic currently. Sitting upright in bed. H EENT exam pupils round reactive light. Dry mucous membranes. Neck nontender no lymphadenopathy. No meningismus. Lungs clear to auscultation bilaterally. Heart tachycardic rate about 105 no murmur. Chest wall nontender. No rash. Abdomen soft nondistended normal bowel sounds without peritoneal signs. Colostomy. Moving all 4 extremities. Left lower leg below the knee to the ankle she has circumferential cellulitis tender to palpation. No slough. Left foot is normal dorsi and plantarflexion. Normal strength. 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 Lower extremity nontender. Normal range of motion. No cellulitis. Neurologically she is awake and alert. Answering questions following commands. No focal motor deficits. Const Vital Signs: 08/11/24 21:26 08/11/24 21:29 08/11/24 21:36 Temperature 101.3 F H 101.3 F H Temperature Source Oral Oral Pulse Rate 107 H 107 H 101 H Respiratory Rate 20 H 20 H 14 Blood Pressure 115/71 115/71 131/80 H Blood Pressure Mean 85 85 97 Pulse Ox 100 100 98 Oxygen Delivery Method Room Air Room Air Room Air 08/11/24 22:29 Temperature 100.1 F H Temperature Source Oral Pulse Rate 97 Respiratory Rate 25 H Blood Pressure 138/82 H Blood Pressure Mean 100 Pulse Ox 92 Oxygen Delivery Method Room Air Positive well nourished and well developed; Negative for cachectic, contractures or unkempt General Appearance ED: well developed and NAD; Negative for unkempt, cachectic, contractures, cyanotic, diaphoretic or pallor Nutritional Appearance: Negative for cachectic HEENT Reports moist mucous membranes Negative for trauma or tenderness Eyes PERRL and EOMs intact bilaterally General Eye ED: Negative for pale conjunctiva or scleral icterus Neck no lymphadenopathy, supple and no JVD General: Negative for tenderness Lymph Lymphatic: Negative for other Chest Wall inspection of chest normal and palpation of chest normal Resp normal respiratory effort and clear to auscultation bilaterally Effort and Inspection: Negative for retractions Auscultation: Negative for rales, rhonchi, wheezes or diminished lung sounds Cardio regular rhythm, S1 normal heart sound, S2 normal heart sound and no murmurs; Negative for regular rate Rate: tachycardic GI normal to inspection, nondistended, normoactive bowel sounds, non-tender, non-distended and no masses Auscultation: normoactive bowel sounds Palpation: soft; Negative for tender, guarding or rebound tenderness present Back/Spine no CVA tenderness General Back: Negative for CVA tenderness Cervical Spine: Negative for cervical spine tenderness Thoracic Spine / Upper Back: Negative for thoracic spinal tenderness or paraspinal muscle tenderness Lumbar Spine / Lower Back: Negative for lumbar spinal tenderness Extremity Negative for normal to inspection Extremity Narrative: Left lower extremity cellulitis from below the knee to the ankle. Circumferential. Tender to the touch. No sloughing of skin. No bruising. No crepitance. Clinically appears to be cellulitis. General Extremety ED: Yes edema and tenderness General Extremity: edema Neuro oriented x3 and CN's II-XII intact bilaterally Sensorium / Orientation: alert; Negative for orientation impaired, lethargic or stuporous Motor Exam: strength 5/5 throughout Psych mental status grossly normal Appearance: Negative for unkempt Skin No no rashes or lesions noted Skin Narrative: Left lower extremity cellulitis. General Skin Exam: Negative for jaundice or pallor Rashes: rashes noted MDM MDM MDM Narrative Medical decision making narrative: 43-year-old female history of diabetes was treated outpatient for cellulitis with Bactrim she was doing great and it was much better and today all of a sudden got much worse. She is now febrile with nausea and vomiting and has cellulitis of her left lower extremity. She has multiple drug allergies she will be started on IV clindamycin. Screening labs and blood cultures to be obtained. Due to the extensiveness of the cellulitis I think she will need to be admitted. Plus having recently gone through outpatient therapy. Treated with morphine for pain and Zofran for nausea. Repeat exam at 10:40 PM patient doing well. Tachycardia is improving with the IV fluids. She will be given Tylenol for the fever. The cellulitic rash has not gotten any worse. The antibiotic clindamycin is running. The hospitalist is on page for admission. History & Record Review Discussion w/independent historian: Patient and Family Additional record(s) reviewed:: Prior inpatient record, Prior outpatient record, Prior ED visit, Prior labs and No prior records Lab Data Lab results narrative: CBC shows white count of 25,700. H&H 13 and 38. Platelets 237. 87% neutrophils. Chemistries show a sodium of 127. Gap of 17. BUN and creatinine 12 and 1.1. Glucose 294. Labs: Laboratory Results - last 24 hr 08/11/24 21:39 WBC 25.7 H RBC 4.31 Hgb 13.1 Hct 38.6 MCV 89.6 MCH 30.4 MCHC 33.9 RDW Std Deviation 42.4 RDW Coeff of Claude 12.8 Plt Count 237 MPV 10.0 Immature Gran % (Auto) 1.200 H Neut % (Auto) 87.4 H Lymph % (Auto) 7.8 L Winston % (Auto) 3.3 Eos % (Auto) 0.0 Baso % (Auto) 0.3 Absolute Neuts (auto) 22.5 H Absolute Lymphs (auto) 2.00 Nucleated RBC % 0 Differential Comment SEE COMMENT Platelet Estimate ADEQUATE RBC Morphology N CHROM Anisocytosis RARE Macrocytosis RARE Sodium 127 L Potassium 4.5 Chloride 91 L Carbon Dioxide 18.7 L Anion Gap 17 H BUN 12 Creatinine 1.19 Estim Creat Clear Calc 66.77 Est GFR (MDRD) Non-Af 59 L BUN/Creatinine Ratio 9.7 L Glucose 294 H Calcium 9.7 Discharge Plan Dx/Rx/DC Orders Clinical Impression: Cellulitis of left leg, History of diabetes mellitus, History of chronic kidney disease, Leukocytosis Disposition Disposition: Acute Care Hospital [facility]
[2024-08-11 21:59] LABS: Absolute Neutrophil Count 22.5 X10^3/uL (2.0-7.7); Basophil# 0.08 X10^3/uL; Basophil% 0.3 % (0-1); Hematocrit 38.6 % (37-47); Hemoglobin 13.1 g/dL (12.0-15.0); Lymphocyte % 7.8 % (19-41); Mean Corp Hgb Conc 33.9 g/dL (32-36); Mean Corpuscular Hgb 30.4 pg (27.0-32.0); Mean Corpuscular Volume 89.6 fL (81-99); Monocyte# 0.86 X10^3/uL; Monocyte% 3.3 % (0-10); NRBC Flagged by Analyzer 0 % (0-5); Neutrophil # 22.49 X10^3/uL (2.7-7.7); Neutrophil % 87.4 % (47-70); POSITIVE DIFFERENTIAL YES; Platelet Count 237 K/mm3 (150-450); RBC Distribution Width CV 12.8 % (11.6-14.6); RBC Distribution Width SD 42.4 fl (35.1-43.9); Red Blood Count 4.31 M/mm3 (4.2-5.4); White Blood Count 25.7 K/mm3 (4.4-11.0)
[2024-08-11 22:03] LABS: Differential Indicated SCAN CRITERIA MET
[2024-08-11] MEDS: Clindamycin 900 MG/50 ML BAG 75 MG IV (22:21)
[2024-08-11 22:28] LABS: Anion Gap 17 (5-15); BUN 12 mg/dL (4-19); BUN/Creat Ratio 9.7 RATIO (10-20); Calcium,Total 9.7 mg/dL (7.6-11.0); Carbon Dioxide 18.7 mmol/L (21.0-32.0); Chloride 91 mmol/L (98-108); Creatinine, Serum 1.19 mg/dL (0.70-1.20); EST Glomerular Filtration Rate 59 (>60); Estimated Creatinine Clearance 66.77 ml/min (50-250); Glucose 294 mg/dL (70-99); Potassium 4.5 mmol/L (3.3-5.1); Sodium Level 127 mmol/L (133-145)
[2024-08-11 22:32] LABS: Anisocytosis RARE; Macrocytosis RARE; Platelet Estimate ADEQUATE (ADEQ); Red Cell Morphology N CHROM NORMAL (NORM C&C)
--- NOTE | 2024-08-11 22:43 | PCM.HP.STD ---
[facility] General Date of Admission: 08/11/24 Date of Service: 08/11/24 Chief Complaint: Left Leg Cellulitis and Fever. [facility] Narrative HEBER BAILON, is a 43 F with a past medical history of essential hypertension; on lisinopril, propranolol and furosemide, hyperlipidemia; on atorvastatin, morbid obesity; with BMI of 41.7 this admission, DM-2; uncontrolled with Hyperglycemia complicated by history of noncompliance with diabetic treatment on insulin glargine 40 units SQ at bedtime plus insulin aspart 3 times daily, diabetic polyneuropathy; on pregabalin twice daily, history of DFU of the Left foot; with history of amputation of the first digit, history of sepsis, history of PSVT, history of uninodular goiter; s/p thyroid biopsy (2019), CKD; stage II, chronic normochromic normocytic anemia, history of UTI, history of renal calculi, overactive bladder; on oxybutynin, history of hydronephrosis of the Right kidney, history of neurogenic bladder; with subsequent suprapubic catheter, history of Manley's palsy, history of gastric surgery, history of ventral hernia repair, history of colostomy, history of cholecystectomy, history of D&C, depression with anxiety and panic attack; on trazodone, history of migraine headaches, history of lipomeningocele, GERD; on omeprazole, OA; with DJD and spina bifida of the lumbar spine of the thoracic spine; s/p spinal surgery x2 with chronic back pain and recent evaluation in the ER here 11 days ago here on July 31, 2024 for complaints of Cellulitis extending from the mid-calf down to the Left foot; with x-rays of the Left foot unremarkable for obvious bony abnormality or evidence of osteomyelitis with a corresponding leukocytosis of 18.5 K present on admission, for which she was treated with oral Bactrim twice daily x 10 days who presents to [facility] ER complaining of worsening Left lower extremity cellulitis and fever. Mrs. Bailon reports her symptoms initially improved on oral Bactrim but then few days ago the redness and swelling began. She also admits to decreased energy and malaise with chills and fever as high as 104 ?F so she decided to come back for further evaluation and treatment. She does admit to taking Tylenol prior to arrival which minimally helped with her moderate pain but did help with her fever. She also admits to nausea and vomiting with persistent hyperglycemia between ~200-300 mg/dL in spite of taking her insulin as prescribed. She admits her symptoms are similar to her previous bouts of cellulitis. She denies associated visual changes, runny nose, sore throat, ear pain, chest pain, cough, shortness of breath, abdominal pain, dysuria, hematuria, arthralgias, headache, chest pain or shortness of breath. In the ER she was noted to be febrile with initial temperature of 101.3 ?F with tachycardia of 107 bpm in addition to severe leukocytosis of 25.7K with Left shift-shift of 1.2% present on admission consistent with suspected Sepsis due to outpatient antibiotic treatment failure with oral Bactrim with corresponding clinical evidence of Cellulitis extending from the Left knee to the mid-foot with CT evidence of skin thickening and induration of the underlying subcutaneous fat, suggesting cellulitis, greatest in the Left heel region and at the posterior margin of the Left heel, there appears to be an ~11 mm skin defect/wound with possible underlying ~3.5 x ~1.4 cm Fluid Collection/Abscess. Suggest correlation with clinical exam findings in the setting of DM-2; uncontrolled with Hyperglycemia and she was then admitted to the PCU for treatment under the sepsis protocol for a stay that is expected to extend beyond 2 midnights. [facility] Medical History (Updated 08/12/24 @ 00:[address] Chance Rose, ) Suprapubic catheter Noncompliance with diabetes treatment Diabetes mellitus with diabetic polyneuropathy Depression Type 2 diabetes mellitus with foot ulcer Open wound of left foot Microalbuminuria CKD (chronic kidney disease) 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 Diabetic polyneuropathy Non-smoker Weakness Hyperglycemia Sepsis Urinary tract infection Diabetic foot infection Urinary tract infection Thyroid cyst Hematochezia Chronic nausea Insomnia PSVT (paroxysmal supraventricular tachycardia) Panic attacks Hyperlipidemia Lipomeningocele History of kidney stones Essential hypertension Dysthymic disorder DJD (degenerative joint disease) of thoracic spine Arthritis Anxiety and depression Uninodular goiter Non-compliance UTI (urinary tract infection) Cellulitis of left lower extremity Infection of bladder catheter Ulcer of left heel and midfoot with fat layer exposed Lower extremity edema Delayed wound healing Type 2 diabetes mellitus with diabetic polyneuropathy Diabetic ulcer of left heel with fat layer exposed Normochromic normocytic anemia Constipation Neurogenic bowel Neurogenic bladder Hydronephrosis of right kidney UTI (urinary tract infection) Diabetes mellitus, type II Morbid obesity with BMI of 40.0-44.9, adult Spina bifida aperta of lumbar spine History of migraine Chronic back pain Home Medications ?Medication ?Instructions ?Recorded ?Last Taken ?Type furosemide 20 mg tablet 20 mg PO 2200 fluid 08/28/18 08/10/24 History furosemide 40 mg tablet 40 mg PO BREAKFAST fluid 04/05/19 08/10/24 History oxybutynin chloride 15 mg 15 mg PO DAILY bladder 11/12/19 08/10/24 History tablet,extended release 24 hr acetaminophen 500 mg tablet 1,000 mg PO TID PRN PRN Pain Or 02/12/20 08/11/24 History Fever trazodone 100 mg tablet 100 mg PO QHS sleep 01/19/21 08/10/24 History atorvastatin 80 mg tablet 80 mg PO DAILY cholesterol 01/29/21 08/10/24 History pen needle, diabetic 32 gauge x #400 ea 03/05/21 Unknown Rx 5/32 (BD Ultra-Fine Hope Pen Needle) lisinopril 5 mg tablet 2.5 mg (1/2 x 5 mg) PO DAILY #90 01/21/22 08/10/24 Rx tabs pen needle, diabetic 32 gauge x #350 ea 09/01/22 Unknown Rx 5/32 (BD Ultra-Fine Hope Pen Needle) loratadine 10 mg tablet (Allergy 10 mg PO DAILY Antigistamine 11/07/23 08/10/24 History Relief (loratadine)) propranolol 20 mg tablet 20 mg PO BID Beta Pan 11/07/23 08/10/24 History insulin aspart See Rx Instructions subcut TID 02/10/24 08/10/24 History (niacinamide)(U-100) 100 unit/mL(3 Glucose control mL) subcutaneous pen (Fiasp FlexTouch U-100 Insulin) pregabalin 75 mg capsule 75 mg PO BID Diabetic nerve pain 02/10/24 08/10/24 History ondansetron 4 mg disintegrating 4 mg PO Q8H PRN PRN Nausea #20 tabs 06/09/24 08/11/24 Rx tablet promethazine 25 mg tablet 25 mg PO TID PRN nausea and 07/31/24 08/01/24 Rx vomiting #20 tabs divalproex 500 mg tablet,delayed 500 mg PO QHS Migraine Headaches 08/11/24 08/10/24 History release insulin glargine 100 unit/mL (3 40 unit subcut QHS dm 08/11/24 08/10/24 History mL) subcutaneous pen (Lantus Solostar U-100 Insulin) omeprazole 20 mg capsule,delayed 20 mg PO DAILY PPI 08/11/24 08/10/24 History release Allergy/AdvReac Type Severity Reaction Status Date / Time Cephalosporins Allergy Severe Anaphylaxis Verified 08/12/24 00:44 piperacillin (From Zosyn) Allergy Intermediate Hives Verified 08/12/24 00:44 ceftriaxone (From Rocephin) Allergy Anaphylaxis Verified 08/12/24 00:44 mushroom Allergy Anaphylaxis Verified 08/12/24 00:44 peanut Allergy Anaphylaxis Verified 08/12/24 00:44 tazobactam (From Zosyn) Allergy NEEDS Verified 08/12/24 00:44 FOLLOW-UP fentanyl AdvReac Low blood Verified 08/12/24 00:44 pressure gabapentin AdvReac Other Verified 08/12/24 00:44 Gadolinium-MRI Contrast AdvReac Vomiting Verified 08/12/24 00:44 Medium Latex, Natural Rubber AdvReac Rash Verified 08/12/24 00:44 vancomycin AdvReac Rash Verified 08/12/24 00:44 Family History Mother CVA (cerebral vascular accident) Thyroid disorder Diabetes Hypertension Heart disease Hyperlipidemia Myocardial infarction, Onset Age: 54 mother had diabetes Father Cancer skin Grandmother Cancer liver Other Arthritis Skin cancer Surgical History S/P colostomy S/P thyroid biopsy (~11/06/19) history insertion suprapubic catheter Status post gastric surgery Hx of foot surgery Hx of ventral hernia repair History of spinal surgery History of cholecystectomy History of dilation and curettage Social History household members: significant other Smoking Status: Never smoker alcohol intake: current substance use type: does not use ROS ROS Narrative Review of Systems: Constitutional: Patient admits to fever and chills with malaise as per HPI. Eyes: Patient denies changes in vision or discharge from eyes. ENT: Patient denies runny nose, sore throat or ear pain. Resp: Patient denies shortness of breath or cough. CV: Patient denies chest pain, palpitations or heart racing. GI: Patient admits to nausea and vomiting with bilious emesis but she denies diarrhea or constipation. : Patient denies dysuria or hematuria. MSK: Patient admits to generalized weakness with moderate persistent pain in her Left lower extremity as per HPI. Skin: Patient admits to circumferential redness of her Left lower extremity from the knee down to the foot. Psych: Patient denies symptoms of uncontrolled depression or anxiety. Neuro: Patient denies headache, paresthesias or focal neurologic deficits. Allergy: Patient denies lip swelling, tongue swelling or urticaria. Hematology: Patient denies easy bleeding or easy bruisability. Endocrinology: Patient admits to persistent hyperglycemia in the ~200-300 mg/dL range as per HPI. 14 point ROS otherwise negative except for positives noted above in HPI. Vital Signs Vital Signs Vital Signs: 08/11/24 21:26 08/11/24 21:29 08/11/24 21:36 Temperature 101.3 F H 101.3 F H Temperature Source Oral Oral Pulse Rate 107 H 107 H 101 H Respiratory Rate 20 H 20 H 14 Blood Pressure 115/71 115/71 131/80 H Blood Pressure Mean 85 85 97 Pulse Ox 100 100 98 Oxygen Delivery Method Room Air Room Air Room Air 08/11/24 22:29 Temperature 100.1 F H Temperature Source Oral Pulse Rate 97 Respiratory Rate 25 H Blood Pressure 138/82 H Blood Pressure Mean 100 Pulse Ox 92 Oxygen Delivery Method Room Air Weight Weight: 220 lb 7.396 oz Body Mass Index (BMI) 41.6 Physical Exam Const alert, oriented x3 and no apparent distress Constitutional Narrative: Morbidly obese with ill appearance. General Appearance: cooperative HEENT normocephalic, head/scalp atraumatic, hearing grossly normal bilaterally and moist oral mucous membranes Eyes PERRL, EOMs intact bilaterally and conjunctivae normal Neck no lymphadenopathy, supple and no JVD Resp normal respiratory effort, no retractions, no use of accessory muscles and clear to auscultation bilaterally Cardio regular rate and regular rhythm Cardio Narrative: Tachycardia in the ~108 bpm range noted. GI normal to inspection, nondistended, normoactive bowel sounds, soft to palpation, non-tender and non-distended GI Narrative: Morbidly obese. Extremity Extremity Narrative: Patient has circumferential severe erythema of the Left lower extremity from the knee to the ankle with tenderness to touch. Patient was noted to have an ~11mm wound in Left heel. Skin Skin Narrative: Patient has circumferential severe erythema of the Left lower extremity from the knee to the ankle with tenderness to touch. Patient was noted to have an ~11mm wound in Left heel. Neuro oriented x3, CN's II-XII intact bilaterally, moves all extremities and no focal motor deficits Sensorium / Orientation: awake, alert, oriented to person, oriented to place and oriented to time Speech: speech normal Psych affect normal Results Medical Records Data Attestation: I reviewed the patient's medical records Lab / Micro Data Attestation: I reviewed the patient's lab results. 08/11/24 21:39 08/12/24 01:25 Labs: Laboratory Results - last 24 hr 08/11/24 21:39: WBC 25.7 H, RBC 4.31, Hgb 13.1, Hct 38.6, MCV 89.6, MCH 30.4, MCHC 33.9, RDW Std Deviation 42.4, RDW Coeff of Claude 12.8, Plt Count 237, MPV 10.0, Immature Gran % (Auto) 1.200 H, Neut % (Auto) 87.4 H, Lymph % (Auto) 7.8 L, [place] % (Auto) 3.3, Eos % (Auto) 0.0, Baso % (Auto) 0.3, Absolute Neuts (auto) 22.5 H, Absolute Lymphs (auto) 2.00, Nucleated RBC % 0, Differential Comment SEE COMMENT, Platelet Estimate ADEQUATE, RBC Morphology N CHROM, Anisocytosis RARE, Macrocytosis RARE, Sodium 127 L, Potassium 4.5, Chloride 91 L, Carbon Dioxide 18.7 L, Anion Gap 17 H, BUN 12, Creatinine 1.19, Estim Creat Clear Calc 66.77, Est GFR (MDRD) Non-Af 59 L, BUN/Creatinine Ratio 9.7 L, Glucose 294 H, Calcium 9.7 Imaging [facility] Imaging Services [address] [place] [address] Extremity Lower WITH Contrast MR#: [id number] Acct: [id number] Name: HEBER BAILON Rep #: [id number] : 1980 F 43 From: Jono Castillo DO PCP: Dr. Will Shukla MD Status: ADM IN Study: Extremity Lower WITH Contrast Date of Exam: 08/12/24 Exam# [id number] Ordering Dr: Chance Rose DO PROCEDURE: CT of the left tibia/fibula. REASON FOR EXAM: SUSPECTED OSTEOMYELITIS. Increased redness, pain, fever. Noncompliant diabetic. TECHNIQUE: After the intravenous administration of 95 cc Isovue-300, contiguous axial CT images were obtained through the left tibia/fibula. Sagittal and coronal reformats were created. One or more dose reduction techniques were used (e.g., Automated exposure control, adjustment of the mA and/or kV according to patient size, use of iterative reconstruction technique). RADIATION DOSE SUMMARY: DLP: 802.78 mGycm COMPARISON: Left foot radiographs 07/31/2024. FINDINGS: The left tibia and fibula are intact. No acute fracture or gross bony destructive process of the left tibia/fibula. Included portions of the left foot and ankle, as well as the left knee, are intact. There is some skin thickening of the left tibia/fibula region, as well as induration of the underlying subcutaneous fat. No discrete drainable fluid collection is demonstrated. On the posterior left heel region, images 184-186, possible 11 mm wound, with possible underlying 3.5 x 1.4 cm fluid collection on image 9 of the sagittal reformats. There is significant atrophy of the left calf musculature. CT/Extremity Lower WITH Contrast IMPRESSION: No acute bony abnormality or gross bony destructive process of the left tibia/fibula. There are areas of skin thickening and induration of the underlying subcutaneous fat, suggesting cellulitis, greatest in the left heel region. At the posterior margin of the left heel, there appears to be 11 mm skin defect/wound with possible underlying 3.5 x 1.4 cm fluid collection/abscess. Suggest correlation with clinical exam findings. Reading Location: [facility] CC: Dr. Cahnce Rose DO; Dr. Will Shukla MD ~ [employer] Operator: Signed Assessment & Plan Assessment/Plan (1) Sepsis: QUALIFIERS: Sepsis acute organ dysfunction status: unspecified Sepsis type: sepsis due to unspecified organism Qualified Code(s): A41.9 - Sepsis, unspecified organism (2) Abscess of left heel: (3) Cellulitis of left leg: (4) Cellulitis of foot, left: (5) Fever: QUALIFIERS: Fever type: unspecified Qualified Code(s): R50.9 - Fever, unspecified (6) Leukocytosis: QUALIFIERS: Leukocytosis type: unspecified Qualified Code(s): D72.829 - Elevated white blood cell count, unspecified (7) Diabetes mellitus with diabetic polyneuropathy: QUALIFIERS: Diabetes mellitus senior care insulin use: with terminal operations supervisor use Diabetes mellitus type: type 2 Qualified Code(s): E11.42 - Type 2 diabetes mellitus with diabetic polyneuropathy; Z79.4 - bed bug exterminator (current) use of insulin (8) Noncompliance with diabetes treatment: (9) Therapy failure due to antibiotic resistance: (10) Morbid obesity with BMI of 40.0-44.9, adult: PLAN: Plan 1. Left Lower Extremity Cellulitis extending from the knee to the mid-foot with CT evidence of skin thickening and induration of the underlying subcutaneous fat, suggesting Cellulitis, greatest in the Left heel region and at the posterior margin of the Left heel, there appears to be an ~11 mm skin defect/wound with possible underlying ~3.5 x ~1.4 cm Fluid Collection/Abscess with Fever of 101.3 ?F, Tachycardia of 107 bpm and Severe Leukocytosis of 25.7K with Left shift-shift of 1.2% present on admission consistent with suspected Sepsis due to outpatient antibiotic treatment failure with oral Bactrim due to suspected MRSA in the setting of a listed allergy to vancomycin (rash) and cephalosporins (anaphylaxis) - Admit to PCU for treatment under the sepsis protocol. Start IV linezolid 600 mg IV twice daily to cover MRSA. Continue IV clindamycin begun in the ER to cover for a wider range of pathogens in case of polymicrobial infection. Give acetaminophen as needed for guvw-ze-ootvaton (level 1-5/10) pain or fever. Give morphine IV as needed for severe (level 6-10/10) pain. Give ondansetron IV as needed nausea and vomiting. Finally, we will consult seismograph operator helper on-call see this patient on rounds in the a.m. for further recommendations regarding irrigation and debridement with help appreciated in advance. 2. DM-2; uncontrolled with Hyperglycemia with persistent hyperglycemia between ~200-300 mg/dL in spite of taking her insulin as prescribed with hemoglobin A1c of 11.9% present on admission complicating #1 - ADA diet. FSBS q. AC/HS plus SSI. Continue insulin glargine 30 units sq every evening. Finally, we will consult clinical dietitian to see this patient on rounds in a.m. for further recommendations regarding enhance diabetic teaching with help appreciated in advance. 3. Recent evaluation in the ER here 11 days ago here on July 31, 2024 for complaints of Cellulitis extending from the mid-calf down to the Left foot; with x-rays of the Left foot unremarkable for obvious bony abnormality or evidence of osteomyelitis with a corresponding leukocytosis of 18.5 K present on admission, for which she was treated with oral Bactrim twice daily x 10 days compounding #1 & #2 - Noted. 4. Morbid Obesity; with BMI of 41.7 this admission adding to the burden of disease outlined from #1 - #3 - Weight loss was recommended. Check TSH. This complicates her case may hamper recovery. 5. Diabetic Polyneuropathy; with history of DFU of Left foot and amputation of the great toe - Noted. Maintain pregabalin as previous. 6. Essential hypertension; on lisinopril, propranolol and furosemide - Hold scheduled antihypertensives until infection outlined in #1 is neutralized. 7. Hyperlipidemia; on atorvastatin - Resume statin and check lipid profile. 8. History of sepsis - Noted. 9. History of PSVT - Noted with no evidence of recurrence at this time. 10. History of uninodular goiter; s/p thyroid biopsy (2019) - Noted. Check TSH. 11. CKD; stage II-IIIa - Stable. Patient will be aggressively volume resuscitated with CMP ordered daily to follow trend. 12. Chronic normochromic normocytic anemia - Stable with normal hemoglobin of 13.1 g/dL and MCV of 89.6 fL present on admission. 13. History of UTI - Noted with UA pending at this time. 14. History of renal calculi - Noted. 15. Overactive bladder; on oxybutynin - Continue current treatment. 16. History of hydronephrosis of the Right kidney - Noted. 17. History of neurogenic bladder; with subsequent suprapubic catheter - Noted. 18. History of Manley's palsy - Noted. 19. History of gastric surgery - Noted. 20. History of ventral hernia repair - Stable. 21. History of colostomy - Noted. 22. History of cholecystectomy - Noted. 23. History of D&C - Noted with the sake of completeness. 24. Depression with anxiety and panic attack; on trazodone - Maintain trazodone as before. 25. History of migraine headaches - Stable with no complaints of headache at this time. 26. History of lipomeningocele - Noted. 27. GERD; on omeprazole - Resume PPI. 28. OA; with DJD and spina bifida of the lumbar spine of the thoracic spine; s/p spinal surgery x2 with chronic back pain - We we will follow pain regimen outlined above in #1. 29. DVT prophylaxis - Lovenox 40 mg SQ twice daily. Total time: Approximately (but not less than) 75 minutes. Update: I was contacted by [facility] and informed that 1/2 cultures of already returned preliminary positive for gram-positive rods in anaerobic bottle. Her UA also came back positive for evidence of Acute Cystitis; without hematuria with initial lactate of 1.6 mmol/L dropping to 1.4 mmol/L on second check. Sepsis Attestation Sepsis Alert: Yes Sepsis Attestation: Agree w/Sepsis Date exam was performed: 08/12/24 Time exam was performed: 23:45 Possible Source of Sepsis: Skin/soft tissue Supportive Findings: Febrile with initial temperature of 101.3 ?F with tachycardia of 107 bpm in addition to severe leukocytosis of 25.7K with Left shift-shift of 1.2% present on admission consistent with suspected Sepsis due to outpatient antibiotic treatment failure with oral Bactrim due to suspected MRSA with blood cultures returning preliminary +1/2 positive for gram positive rods in anaerobic bottle. Fluid Resuscitation Fluid resuscitation indicated?: Yes Fluid Resuscitation ordered: 30 ml/kg fluid bolus ordered Amount of fluid ordered: 3 Sepsis Note Date exam was performed: 08/12/24 Time exam was performed: 03:45 Sepsis Attestation: Sepsis re-evaluation was performed Response to fluids: Fluid responsive hypotension Charges/Coding Visit Charges Inpatient E&M: 14529 Init Hosp L3
[2024-08-11] MEDS: Acetaminophen 500 MG Tablet 1000 MG PO (23:00)
[2024-08-11 23:42] LABS: Lactic Acid 1.6 mmol/L (0.0-2.0)
[2024-08-11 23:46] LABS: Hemoglobin A1c 11.9 % (<=5.6)
[2024-08-11 23:50] LABS: Magnesium 1.7 mg/dL (1.5-2.2)
[2024-08-12] VITALS (17 sets, daily range): BP systolic 109–132; BP diastolic 56–95; PULSE 78–91; RESP 12–16; TEMP 36.3–37.5; O2SAT 88–100; BMI 41.3
--- NOTE | 2024-08-12 | CT_ITS ---
PROCEDURE: CT of the left tibia/fibula. REASON FOR EXAM: SUSPECTED OSTEOMYELITIS. Increased redness, pain, fever. Noncompliant diabetic. TECHNIQUE: After the intravenous administration of 95 cc Isovue-300, contiguous axial CT images were obtained through the left tibia/fibula. Sagittal and coronal reformats were created. One or more dose reduction techniques were used (e.g., Automated exposure control, adjustment of the mA and/or kV according to patient size, use of iterative reconstruction technique). RADIATION DOSE SUMMARY: DLP: 802.78 mGycm COMPARISON: Left foot radiographs 07/31/2024. FINDINGS: The left tibia and fibula are intact. No acute fracture or gross bony destructive process of the left tibia/fibula. Included portions of the left foot and ankle, as well as the left knee, are intact. There is some skin thickening of the left tibia/fibula region, as well as induration of the underlying subcutaneous fat. No discrete drainable fluid collection is demonstrated. On the posterior left heel region, images 184-186, possible 11 mm wound, with possible underlying 3.5 x 1.4 cm fluid collection on image 9 of the sagittal reformats. There is significant atrophy of the left calf musculature. CT/Extremity Lower WITH Contrast IMPRESSION: No acute bony abnormality or gross bony destructive process of the left tibia/f ibula. There are areas of skin thickening and induration of the underlying subcutaneou s fat, suggesting cellulitis, greatest in the left heel region. At the posterior margin of the left heel, there appears to be 11 mm skin defect /wound with possible underlying 3.5 x 1.4 cm fluid collection/abscess. Suggest correlation with clinical exam findings. Reading Location[facility]
[2024-08-12] MEDS: 0.9% Normal Saline (1000mL) 1,000 ML 999 ML IV ×3 (00:37→02:49)
--- NOTE | 2024-08-12 00:55 | MRI_ITS ---
PROCEDURE: LOWER EXT NO JOINT W/WO CONT REASON FOR EXAM: LEFT HEEL ABSCESS ON CT. EVAL FOR OSTEOMYELITIS. TECHNIQUE: MRI of the left hindfoot without and with contrast. CONTRAST: 20 mL Clariscan intravenous. COMPARISON: CT examination 08/12/2019 MRI/Lower Ext No Joint W/WO Cont IMPRESSION: The previously noted plantar and posterior ulcer over the left heel is again se en, with interval decreased appearance size of the subcutaneous fluid collection. No extension to the subjacent bone is seen. No acute osseous signal changes are seen. No area of abnormal osseous postcont rast enhancement. Normal appearance of the Achilles tendon is seen. No tendon pathology is noted. No joint effusion is evident. No evidence of osteomyelitis. Reading Location: [id number]
[2024-08-12] MEDS: Zinc Sulfate 50 mg zinc (220 mg) ORAL capsule PO (01:08)
[2024-08-12] MEDS: Insulin Glargine-YFGN 100 UNIT/ML Pen 30 UNIT SC ×2 (01:08→22:16)
[2024-08-12 01:17] LABS: Valproic Acid (Depakene) Level < 3 ug/mL (50-100)
[2024-08-12 01:55] LABS: Anion Gap 13 (5-15); BUN 10 mg/dL (4-19); BUN/Creat Ratio 11.3 RATIO (10-20); Calcium,Total 8.2 mg/dL (7.6-11.0); Carbon Dioxide 17.6 mmol/L (21.0-32.0); Chloride 97 mmol/L (98-108); Creatinine, Serum 0.92 mg/dL (0.70-1.20); EST Glomerular Filtration Rate 79 (>60); Estimated Creatinine Clearance 85.97 ml/min (50-250); Glucose 257 mg/dL (70-99); Potassium 3.9 mmol/L (3.3-5.1); Sodium Level 128 mmol/L (133-145)
[2024-08-12] MEDS: Linezolid 600 MG 600 MG/300 ML BAG 200 MG IV ×3 (03:25→22:12)
[2024-08-12] MEDS: Clindamycin 600 MG/50 ML BAG 100 MG IV (05:33)
[2024-08-12 05:54] LABS: Mucous, Urine 0 SEEN /hpf (<or=2+); Squamous Epithelial Cells - UA 0 SEEN /hpf (5-10)
[2024-08-12 05:57] LABS: Color, Urine Yellow (Yellow); Glucose, Dipstick 1000 mg/dl (Normal); Ketone-Dipstick 50 mg/dl (Negative); Leukocyte Esterase-Dipstick 500 /ul (Negative); Nitrite-Dipstick Negative (Negative); Occult Blood-Urine 50 /ul (Negative); Protein-Dipstick 30 mg/dl (Negative); Specific Gravity, Urine 1.015 (1.002-1.030); Urine Bilirubin Dipstick Negative (Negative); Urine Clarity Sl. Cloudy (Clear); Urine Urobilinogen Normal (Normal)
[2024-08-12 06:10] LABS: Bacteria 2+ /hpf (None Seen); Red Blood Cells-Urine 0 SEEN /hpf (0-5); White Blood Cells 10-25 SEEN /hpf (0-5)
[2024-08-12 06:11] LABS: Absolute Lymphocyte Count 3.25 X10^3/uL (0.83-4.51); Absolute Neutrophil Count 18.5 X10^3/uL (2.0-7.7); Basophil# 0.08 X10^3/uL; Basophil% 0.3 % (0-1); Eosinophil# 0.01 X10^3/uL; Hematocrit 37.1 % (37-47); Hemoglobin 12.2 g/dL (12.0-15.0); Lymphocyte # 3.25 X10^3/ul (0.83-4.51); Lymphocyte % 13.9 % (19-41); Mean Corp Hgb Conc 32.9 g/dL (32-36); Mean Corpuscular Hgb 30.5 pg (27.0-32.0); Mean Corpuscular Volume 92.8 fL (81-99); Mean Platelet Vol. 10.7 fl (6.2-12.0); Monocyte# 1.24 X10^3/uL; Monocyte% 5.3 % (0-10); NRBC Flagged by Analyzer 0 % (0-5); Neutrophil # 18.48 X10^3/uL (2.7-7.7); POSITIVE COUNT YES; RBC Distribution Width CV 13.2 % (11.6-14.6); RBC Distribution Width SD 44.7 fl (35.1-43.9); White Blood Count 23.4 K/mm3 (4.4-11.0)
[2024-08-12 06:49] LABS: Differential Indicated SCAN CRITERIA MET
[2024-08-12 06:50] LABS: BETA-HYDROXYBUTYRATE 1.1 mmol/L (0.0-0.3); Cholesterol 137 mg/dL (<=200); High Density Lipoprotein 38 mg/dL; Low Density Lipoprotein Calc. 67 mg/dL; Triglycerides 163 mg/dL; Very Low Density Lipoprotein 33 mg/dL (5-40); cholesterol:hdl ratio screen 3.63
[2024-08-12 06:51] LABS: Albumin, Serum 3.5 g/dL (3.5-5.0); BUN 9 mg/dL (4-19); BUN/Creat Ratio 10.5 RATIO (10-20); Creatinine, Serum 0.89 mg/dL (0.70-1.20); EST Glomerular Filtration Rate 83 (>60); Estimated Creatinine Clearance 88.86 ml/min (50-250); Glucose 282 mg/dL (70-99); Protein, Total 7.4 g/dL (5.9-8.4)
[2024-08-12 06:52] LABS: ALB/GLOB Ratio 0.9 RATIO (0.9-2.4); AST(SGOT) 51 U/L (<=31); Alanine Aminotransfer ALT/SGPT 71 U/L (<=34); Alkaline Phosphatase 95 U/L (35-104); Anion Gap 13 (5-15); Calcium,Total 8.4 mg/dL (7.6-11.0); Carbon Dioxide 18.4 mmol/L (21.0-32.0); Chloride 100 mmol/L (98-108); Globulin 3.8 g/dL (2.2-4.2); Potassium 4.4 mmol/L (3.3-5.1); Sodium Level 131 mmol/L (133-145); Total Bilirubin 0.45 mg/dL (0.00-1.30)
[2024-08-12 07:43] LABS: Platelet Estimate ADEQUATE (ADEQ)
[2024-08-12] MEDS: Insulin Lispro 100 UNIT/ML INSULN.PEN SC ×3 (08:24→17:48)
[2024-08-12] MEDS: Ondansetron 4 MG/2 ML Vial IV (09:03)
[2024-08-12] MEDS: Morphine 2 MG/ML Syringe IV ×4 (09:03→22:32)
[2024-08-12] MEDS: Cefepime HCl 2 GM in 0.9% Normal Saline (100mL MB+) 100 ML IV ×3 (10:46→21:36)
[2024-08-12] MEDS: Acetaminophen 325 MG Tablet 650 MG PO (10:52)
[2024-08-12 12:43] LABS: Bedside Glucose 185 mg/dL (74-106)
--- NOTE | 2024-08-12 14:35 | CASEMGMT ---
VERNON BENITEZ Assessment Face to Face with patient for initial transition planning/care coordination assessment. VERNON BENITEZ introduced self and role at [facility], pt voices understanding. Pt is A&Ox4 and is resting comfortably in bed and is calm. Care providers, pharmacy, and demographics verified. Admitting dx: Sepsis d/t LLE Cellulitis after failed OP PO ATB therapy LACE Strata: 3 PCP: Will Shukla Specialists: Isauro ([facility]), Santi ([facility]ro), Paramjit (Colorectal Surgery), Patricia (Podiatry) Preferred Pharmacy: [facility] Insurance: [facility] A[facility]B, [facility]sover Prescription Benefit: Yes LNOK: Jay (H), Kimberley Peñaloza (MIL) Living Arrangements: Pt lives with her in a 2 story home with one step to enter ADLs/IADLs: Pt states that she is independent Transportation: Pt does not drive. Pt drives. Denies concerns DME: CBGM with sensors. Insulin Pens. Backup BGM with sufficient supplies if needed. Shower chair. Cane. Fww. Rollator. W/C. Ostomy and supplies through [employer]. Denies further needs or concerns HHC/SNF: Hx @ [facility] and [facility] Rehab Wound: Pt reports that she has a Hx @ the [facility]. However, pt currently denies the need to attend the [facility] again. Pt states that her and her will be able to provide enough care @ home. Pt?s goal: Home Plan: TBD. Anticipate home no needs vs home with IV ATBs d/t the pt failing OP PO ATB therapy. However, PT eval is pending d/t pt being too painful today. ID is consulted and pending. Podiatry is consulted. Pt states that she has a history of home IV ATB use but cannot recall the name of the HH or infusion company. Pt states that her and her could be the teachable caregivers. Pt declines wanting to review a list of local in-network HHC and infusion agencies and states that she would prefer to go through [facility] HH and [facility] care. Pt denies further questions or concerns at this time. CM to follow. Report given to DIVISION CONTROLLER CM. Jena Blunt RN, CM
--- NOTE | 2024-08-12 15:12 | PCM.PRE.AN2 ---
ASA Classification* ASA Classification ASA Classification: 3 Assessment & Plan Anesthesia* Anesthesia Assessment Anesthesia Assessment: Discussed sedation and/or anesthesia options, risks, benefits, and alternatives with patient/parents/legal guardian/POA. Questions invited. The patient/parents/legal guardian/POA seems to understand and agrees to proceed with anesthesia plan. Reviewed the physical assessment, medical history, allergy history and patient home medications list prior to surgery/procedure/anesthetic and documented any changes. Performed airway and anesthesia risk assessments. Anesthesia Type Anesthesia Type: General History Source History Obtained from:: Chart Anesthesia Focused Assessment* Temperature: 98.6 F Pulse Rate: 89 Blood Pressure: 119/65 Respiratory Rate: 16 Pulse Ox: 98 Oxygen Delivery Method: Room Air Oxygen Flow Rate (L/min): 2 Airway Assessment Mouth opens: >3 cm Mallampati Score: III Teeth Condition: Chipped/Broken (Multiple chipped teeth) and Missing (Multiple missing teeth.) Neck Range of motion (ROM): Full ROM Focused Labs Anesthesia Preop lab: CBC WBC 23.4 K/mm3 (4.4-11.0) H 08/12/24 05:51 08/12/24 RBC 4.00 M/mm3 (4.2-5.4) L 08/12/24 05:51 08/12/24 Hgb 12.2 g/dL (12.0-15.0) 08/12/24 05:51 08/12/24 Hct 37.1 % (37-47) 08/12/24 05:51 08/12/24 Plt Count K/mm3 (150-450) 08/12/24 05:51 08/12/24 CHEMISTRY Potassium 4.4 mmol/L (3.3-5.1) 08/12/24 05:51 08/12/24 Sodium 131 mmol/L (133-145) L 08/12/24 05:51 08/12/24 Magnesium 1.7 mg/dL (1.5-2.2) 08/11/24 21:39 08/11/24 Phosphorus 3.0 mg/dL (2.7-4.5) 08/12/24 05:51 08/12/24 BUN 9 mg/dL (4-19) 08/12/24 05:51 08/12/24 Creatinine 0.89 mg/dL (0.70-1.20) 08/12/24 05:51 08/12/24 Glucose 282 mg/dL (70-99) H 08/12/24 05:51 08/12/24 POC Glucose 185 mg/dL (74-106) H 08/12/24 12:17 08/12/24 TSH 1.550 uIU/mL (0.300-4.200) 08/11/24 21:39 08/11/24 COAG PT 12.3 SECONDS (11.7-14.9) 07/11/24 17:40 07/11/24 HCG, Quant < 1 mIU/mL (<9 non-preg) 10/24/12 11:05 10/24/12 Urine Test Negative Negative 07/15/22 06:00 07/15/22 Pre-Assessment Diagnosis/Proposed Procedure Planned Operative Procedure(s): Irrigation and debridement washout of the left heel abscess. Anesthesia History Anesthesia History - it service delivery manager: Anesthesia History - it service delivery manager Hx Hospitalization No 01/10/22 13:40 Any Problems With Anesthesia No 08/12/24 14:58 Cholinesterase deficiency No 08/12/24 14:58 You/Your Family Experience No 08/12/24 14:58 fever (hyperthermia) with Relationship Recent Exposure to Contagious No 08/12/24 14:58 Disease Does patient have nerve No 08/12/24 14:58 stimulator Patient instructed to have No 08/12/24 14:58 device shut off --Does patient have Pacemaker No 08/12/24 14:58 or ICD? When Was Last Pacemaker Check QUESTION #4 FULL TEXT: You/Your Family Experience fever (hyperthermia) with Anesthesia Last Oral Intake Last Oral intake: Last Oral Intake NPO since 00:00 08/12/24 14:58 Meds taken in AM with sips of Yes 08/12/24 14:58 water? 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 - it service delivery manager: PONV - it service delivery manager Female HX of Motion Sickness HX of N/V After Surgery Non-Smoker Duration of Surgery greater than 60 minutes Number of Risk Factors PONV Score Height & Weight Height & Weight: Anesthesia: Height & Weight Height 5 ft 1 in 08/12/24 14:58 Weight: 99.2 kg 08/12/24 14:58 Body Mass Index (BMI) 41.3 08/12/24 14:58 Respiratory Assessment Respiratory Assessment - it service delivery manager: Respiratory Tract Infection Hx - it service delivery manager Hx Respiratory Tract Infection No 08/12/24 14:58 STOP Sleep Apnea STOP Sleep Apnea - it service delivery manager: STOP Sleep Apnea - it service delivery manager Hx Hypertension Yes 08/12/24 12:36 Hx Sleep Apnea No 08/11/24 23:02 CPAP No 07/15/22 15:55 BIPAP No 07/13/22 04:51 Do you snore loudly (louder Yes 08/11/24 23:02 than talking or can be heard Do you often feel tired/ Yes 08/11/24 23:02 fatigued/ sleepy during daytime? Has anyone observed you stop Yes 08/11/24 23:02 breathing during sleep? STOP Results Positive 08/11/24 23:02 QUESTION #5 FULL TEXT : Do you snore loudly (louder than talking or can be heard through closed doors)? Tobacco Use History Tobacco Use History - it service delivery manager: Tobacco Use History - it service delivery manager Tobacco Use Non-smoker 01/10/22 13:40 Smoking Status Never smoker 08/11/24 23:02 Hx Tobacco Use No 08/11/24 23:02 Years Smoking Packs Smoked per Day Smoking Cessation Date was within the last 15 years Hx Smoking Cessation Date Hx Smoking Cessation Counseling Hematologic Medial History Hematologic Hx - it service delivery manager: Hematologic Medical Hx - director of consulting services Hx of Blood Transfusion No 08/11/24 23:02 Hx of Transfusion in last 3 No 08/11/24 23:02 Months Date of Last Transfusion (if within last 3 months) Ever experience any problems No 08/11/24 23:02 with transfusion(s)? Specify any problems Hx of Preganancy in last 3 No 08/11/24 23:02 Months Nurse Filling Out Transfusion JSNOW 08/11/24 23:02 & Questions: Date: 08/12/24 08/11/24 23:02 Time: 00:40 08/11/24 23:02 Patient unable to answer at this time (ie. confused, unrespo /Reproduction History /Reproductive History - it service delivery manager: /Reproductive Hx- it service delivery manager Hx Now No 08/12/24 14:58 Gestational Age (in weeks): EDC: Hx Hx Para Hx Section SAB No 08/12/24 14:58 Active Medications Active Medications: Current Medications Generic Name Dose Route Start Last Admin Trade Name Freq PRN Reason Stop Dose Admin Acetaminophen 650 mg 08/12/24 00:11 08/12/24 10:52 Acetaminophen 325 Mg Tablet PO 650 mg TID PRN PRN Administration Pain 1-5/10 or Fever Albuterol Sulfate 2.5 mg 08/12/24 00:11 Albuterol 2.5 Mg/3 Ml Vial.Neb. INHALATION Q2H PRN PRN SOB &/OR WHEEZING Ascorbic Acid 1,000 mg 08/12/24 08:00 08/12/24 10:32 Ascorbic Acid 500 Mg Tablet PO Not Given BIDCM DERIAN Atorvastatin Calcium 80 mg 08/12/24 22:00 Atorvastatin Calcium 80 Mg Tablet PO 2200 DERIAN Cholecalciferol 125 mcg 08/12/24 10:00 08/12/24 11:58 Cholecalciferol (Vit D3) 125 Mcg Capsule (5,000 Units) PO Not Given DAILY DERIAN Divalproex Sodium 500 mg 08/12/24 22:00 Divalproex Sodium 250 Mg Tablet PO QHS DERIAN Enoxaparin Sodium 40 mg 08/12/24 00:11 08/12/24 10:33 Enoxaparin 40 Mg/0.4 Ml Syringe SC Not Given BID DERIAN Glucagon 1 mg 08/12/24 00:11 Glucagon 1 Mg/Ml Syringe IM X1 PRN HYPOGLYCEMIA Protocol Linezolid 600 mg in 300 mls @ 200 mls/hr 08/12/24 00:11 08/12/24 13:30 Zyvox 600mg IV Infused Q12 DERIAN Infusion Sodium Chloride 100 mls @ 15 mls/hr 08/12/24 00:12 IV .Q6H40M PRN Saline Flush Sodium Chloride 100 mls @ 15 mls/hr 08/12/24 00:12 IV .Q6H40M PRN Additional IVPB Infusion Cefepime HCl 2 gm/ Sodium 100 mls @ 200 mls/hr 08/12/24 09:35 08/12/24 14:09 Chloride IV 200 mls/hr Q8 DERIAN Administration Insulin Glargine 30 unit 08/12/24 00:11 08/12/24 01:08 Insulin Glargine-Yfgn 100 Unit/Ml Pen SC 30 unit QHS [facility] Administration Insulin Human Lispro 12 unit 08/12/24 08:00 08/12/24 12:22 Insulin Lispro 100 Unit/Ml Insuln.Pen SC Not Given TIDCM [facility] Insulin Human Lispro 0 unit 08/12/24 08:00 08/12/24 12:22 Insulin Lispro 100 Unit/Ml Insuln.Pen SC 2 u TIDCM [facility] Administration Protocol Loratadine 10 mg 08/12/24 10:00 08/12/24 11:59 Loratadine 10 Mg Tablet PO Not Given DAILY [facility] Magnesium Hydroxide 30 ml 08/12/24 00:11 Magnesium Hydroxide 30 Ml Udc PO DAILY PRN PRN Constipation Melatonin 3 mg 08/12/24 00:11 Melatonin 3 Mg Tablet PO QHS PRN PRN INSOMNIA Metronidazole 500 mg 08/12/24 09:45 08/12/24 14:12 Metronidazole 500 Mg Tablet PO Not Given TID [facility] Morphine Sulfate 2 mg 08/12/24 00:11 08/12/24 14:08 Morphine 2 Mg/Ml Syringe IV 2 mg Q4H PRN PRN Administration Pain Score 6-10 Ondansetron HCl 4 mg 08/12/24 00:11 08/12/24 09:03 Ondansetron 4 Mg/2 Ml Vial IV 4 mg Q4H PRN PRN Administration NAUSEA/VOMITING Pantoprazole Sodium 20 mg 08/12/24 10:00 08/12/24 11:58 Pantoprazole Sodium 20 Mg Tablet PO Not Given DAILY [facility] Pregabalin 75 mg 08/12/24 10:00 08/12/24 12:00 Pregabalin 75 Mg Capsule PO Not Given BID [facility] Sodium Chloride 10 - 40 ml 08/12/24 00:12 0.9% Saline Lock 10 Ml Syringe IV UD PRN SALINE FLUSH Tolterodine Tartrate 4 mg 08/12/24 10:00 08/12/24 11:58 Tolterodine Tartrate 4 Mg Cap.Sa PO Not Given DAILY [facility] Trazodone HCl 100 mg 08/12/24 22:00 Trazodone 100 Mg Tablet PO QHS [facility] Zinc Sulfate 50 mg 08/12/24 00:11 08/12/24 11:58 Zinc Sulfate 50 Mg Zinc (220 Mg) Oral Capsule PO Not Given DAILY [facility] Medical History Suprapubic catheter Noncompliance with diabetes treatment Diabetes mellitus with diabetic polyneuropathy Depression Type 2 diabetes mellitus with foot ulcer Open wound of left foot Microalbuminuria CKD (chronic kidney disease) 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 Diabetic polyneuropathy Non-smoker Weakness Hyperglycemia Sepsis Urinary tract infection Diabetic foot infection Urinary tract infection Thyroid cyst Hematochezia Chronic nausea Insomnia PSVT (paroxysmal supraventricular tachycardia) Panic attacks Hyperlipidemia Lipomeningocele History of kidney stones Essential hypertension Dysthymic disorder DJD (degenerative joint disease) of thoracic spine Arthritis Anxiety and depression Uninodular goiter Non-compliance UTI (urinary tract infection) Cellulitis of left lower extremity Infection of bladder catheter Ulcer of left heel and midfoot with fat layer exposed Lower extremity edema Delayed wound healing Type 2 diabetes mellitus with diabetic polyneuropathy Diabetic ulcer of left heel with fat layer exposed Normochromic normocytic anemia Constipation Neurogenic bowel Neurogenic bladder Hydronephrosis of right kidney UTI (urinary tract infection) Diabetes mellitus, type II Morbid obesity with BMI of 40.0-44.9, adult Spina bifida aperta of lumbar spine History of migraine Chronic back pain Home Medications ?Medication ?Instructions ?Recorded ?Last Taken ?Type furosemide 20 mg tablet 20 mg PO 2200 fluid 08/28/18 08/10/24 History furosemide 40 mg tablet 40 mg PO BREAKFAST fluid 04/05/19 08/10/24 History oxybutynin chloride 15 mg 15 mg PO DAILY bladder 11/12/19 08/10/24 History tablet,extended release 24 hr acetaminophen 500 mg tablet 1,000 mg PO TID PRN PRN Pain Or 02/12/20 08/11/24 History Fever trazodone 100 mg tablet 100 mg PO QHS sleep 01/19/21 08/10/24 History atorvastatin 80 mg tablet 80 mg PO DAILY cholesterol 01/29/21 08/10/24 History pen needle, diabetic 32 gauge x #400 ea 03/05/21 Unknown Rx (BD Ultra-Fine Hope Pen Needle) lisinopril 5 mg tablet 2.5 mg (1/2 x 5 mg) PO DAILY #90 01/21/22 08/10/24 Rx tabs pen needle, diabetic 32 gauge x #350 ea 09/01/22 Unknown Rx (BD Ultra-Fine Hope Pen Needle) loratadine 10 mg tablet (Allergy 10 mg PO DAILY Antigistamine 11/07/23 08/10/24 History Relief (loratadine)) propranolol 20 mg tablet 20 mg PO BID Beta Pan 11/07/23 08/10/24 History insulin aspart See Rx Instructions subcut TID 02/10/24 08/10/24 History (niacinamide)(U-100) 100 unit/mL(3 Glucose control mL) subcutaneous pen (Fiasp FlexTouch U-100 Insulin) pregabalin 75 mg capsule 75 mg PO BID Diabetic nerve pain 02/10/24 08/10/24 History ondansetron 4 mg disintegrating 4 mg PO Q8H PRN PRN Nausea #20 tabs 06/09/24 08/11/24 Rx tablet promethazine 25 mg tablet 25 mg PO TID PRN nausea and 07/31/24 08/01/24 Rx vomiting #20 tabs divalproex 500 mg tablet,delayed 500 mg PO QHS Migraine Headaches 08/11/24 08/10/24 History release insulin glargine 100 unit/mL (3 40 unit subcut QHS dm 08/11/24 08/10/24 History mL) subcutaneous pen (Lantus Solostar U-100 Insulin) omeprazole 20 mg capsule,delayed 20 mg PO DAILY PPI 08/11/24 08/10/24 History release Allergy/AdvReac Type Severity Reaction Status Date / Time Cephalosporins Allergy Severe Anaphylaxis Verified 08/12/24 00:44 piperacillin (From Zosyn) Allergy Intermediate Hives Verified 08/12/24 00:44 ceftriaxone (From Rocephin) Allergy Anaphylaxis Verified 08/12/24 00:44 mushroom Allergy Anaphylaxis Verified 08/12/24 00:44 peanut Allergy Anaphylaxis Verified 08/12/24 00:44 tazobactam (From Zosyn) Allergy NEEDS Verified 08/12/24 00:44 FOLLOW-UP fentanyl AdvReac Low blood Verified 08/12/24 00:44 pressure gabapentin AdvReac Other Verified 08/12/24 00:44 Gadolinium-MRI Contrast AdvReac Vomiting Verified 08/12/24 00:44 Medium Latex, Natural Rubber AdvReac Rash Verified 08/12/24 00:44 vancomycin AdvReac Rash Verified 08/12/24 00:44 Family History Mother CVA (cerebral vascular accident) Thyroid disorder Diabetes Hypertension Heart disease Hyperlipidemia Myocardial infarction, Onset Age: 54 mother had diabetes Father Cancer skin Grandmother Cancer liver Other Arthritis Skin cancer Surgical History S/P colostomy S/P thyroid biopsy (~11/06/19) history insertion suprapubic catheter Status post gastric surgery Hx of foot surgery Hx of ventral hernia repair History of spinal surgery History of cholecystectomy History of dilation and curettage Social History household members: significant other Smoking Status: Never smoker alcohol intake: current substance use type: does not use Review of Systems (Anesthesia) ROS Narrative System reviewed and no additional complaints, except as documented.
[2024-08-12 15:21] LABS: Internal QC Validated? YES +Cl - CLEAR BKGD; Pregnancy, Urine Negative Negative
[2024-08-12] MEDS: Bupivacaine Mpf 0.5% 30 ML VIAL (16:45)
--- NOTE | 2024-08-12 16:55 | PCM.POST.ANE ---
Anesthesia: Postop Eval I Current Vital Signs Temperature: 97.6 F Pulse Rate: 86 Blood Pressure: 113/95 Respiratory Rate: 14 Pulse Ox: 92 Assessment Airway patent: Yes Spontaneous unlabored respirations: Yes nausea: No Vomiting: No Anesthesia Complication: No Fluid Hydration Crystalloid volume administer (ml): 400 Total IV fluid infused: 400 Progress Note Anesthesia document: Postop Eval 1 completed: Yes
--- NOTE | 2024-08-12 16:58 | CON.PCM_ITS ---
Assessment & Plan Assessment/Plan (1) Cutaneous abscess of left foot: PLAN: Patient was examined and evaluated. All findings were discussed with the patient. All questions were answered to the patient's satisfaction. MRI (08/12/2024): Show evidence of plantar and posterior ulcer over the left heel with subcutaneous fluid collection. No evidence of bone destruction or osteomyelitis. After physical examination the patient shows evidence of deep tissue abscess to the left heel secondary to fissure. Due to the patient's noncompliance with her diabetic blood sugar control I recommended taking the patient to the operating room to evacuate the deep tissue abscess with pulse lavage. All risk and benefits were discussed with the patient in great detail. Patient was agreeable to move forward with a left foot surgery. Plan for surgery Monday, for incision and drainage and washout. Patient is n.p.o. Medicine: On board, medical management, IV antibiotics cefepime and Flagyl WBC: 25.7 -> 23.4 Glu: 282 HbA1c: pending ESR: pending CRP: pending Podiatry will continue to follow the patient while in house. Will plan for delayed primary closure of the left heel full-thickness wound later on in the week when the patient is more stable. Recommend infectious disease consult Please reach out to Dr. Gonzalez with any questions or concerns. Thank you for the consultation! 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 of muscle: (4) Type 2 diabetes mellitus with foot ulcer: QUALIFIERS: Diabetes mellitus long term care administrator insulin use: with longterm use Qualified Code(s): E11.621 - Type 2 diabetes mellitus with foot ulcer; L97.509 - Non-pressure chronic ulcer of other part of unspecified foot with unspecified severity; Z79.4 - long term care pharmacist (current) use of insulin HPI Consult Data Date of Consult: 08/12/24 HPI Narrative Reason for Consultation: Left heel cellulitis and abscess HPI Narrative: HEBER BAILON, is a 43 F who who has a past medical history of diabetes, chronic kidney disease, and colonoscopy presented to the emergency room on July 31, 2024 for left lower extremity cellulitis. She was placed on Bactrim twice daily for 10 days. Patient states she did do better but presented back to the emergency room on 08/11/2024 with worsening redness and swelling to the left lower extremity. Patient's HbA1c is 11%. She admits to being uncontrolled with her diabetes with a blood sugar as high as 300 mg/dL. When presenting to the emergency room she was complaining of pain to the left heel as well as nausea and vomiting. She admits to having past history of fissures and wounds to the left foot with multiple incisions and amputations. Patient does deny trauma. Denies constitutional symptoms. Other pedal complaints at this time. Podiatry consulted for left lower extremity cellulitis and abscess as well as for surgical intervention. [facility] Medical History (Updated 08/12/24 @ 17:[address] 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 Diabetic polyneuropathy Non-smoker Weakness Hyperglycemia Sepsis Urinary tract infection Diabetic foot infection Urinary tract infection Thyroid cyst Hematochezia Chronic nausea Insomnia PSVT (paroxysmal supraventricular tachycardia) Panic attacks Hyperlipidemia Lipomeningocele History of kidney stones Essential hypertension Dysthymic disorder DJD (degenerative joint disease) of thoracic spine Arthritis Anxiety and depression Uninodular goiter Non-compliance UTI (urinary tract infection) Cellulitis of left lower extremity Infection of bladder catheter Ulcer of left heel and midfoot with fat layer exposed Lower extremity edema Delayed wound healing Type 2 diabetes mellitus with diabetic polyneuropathy Diabetic ulcer of left heel with fat layer exposed Normochromic normocytic anemia Constipation Neurogenic bowel Neurogenic bladder Hydronephrosis of right kidney UTI (urinary tract infection) Diabetes mellitus, type II Morbid obesity with BMI of 40.0-44.9, adult Spina bifida aperta of lumbar spine History of migraine Chronic back pain Home Medications ?Medication ?Instructions ?Recorded ?Last Taken ?Type furosemide 20 mg tablet 20 mg PO 2200 fluid 08/28/18 08/10/24 History furosemide 40 mg tablet 40 mg PO BREAKFAST fluid 01/1408/10/24 History oxybutynin chloride 15 mg 15 mg PO DAILY bladder 11/1108/10/24 History tablet,extended release 24 hr acetaminophen 500 mg tablet 1,000 mg PO TID PRN PRN Pa in Or 02/12/20 08/11/24 History Fever trazodone 100 mg tablet 100 mg PO QHS sleep 01/19/21 08/10/24 History atorvastatin 80 mg tablet 80 mg PO DAILY cholesterol 0 01/29/21 08/10/24 History pen needle, diabetic 32 gauge x #400 ea 03/05/21 Unkno wn Rx (BD Ultra-Fine Hope Pen Needle) lisinopril 5 mg tablet 2.5 mg (1/2 x 5 mg) PO DAILY #90 01/21/22 08/10/24 Rx tabs pen needle, diabetic 32 gauge x #350 ea 09/01/22 Unkno wn Rx (BD Ultra-Fine Hope Pen Needle) loratadine 10 mg tablet (Allergy 10 mg PO DAILY Antigi stamine 11/07/23 08/10/24 History Relief (loratadine)) propranolol 20 mg tablet 20 mg PO BID Beta Pan 08/10/24 History insulin aspart See Rx Instructions subcut T ID 02/10/24 08/10/24 History (niacinamide)(U-100) 100 unit/mL(3 Glucose control mL) subcutaneous pen (Fiasp FlexTouch U-100 Insulin) pregabalin 75 mg capsule 75 mg PO BID Diabetic nerve pain 02/10/24 08/10/24 History ondansetron 4 mg disintegrating 4 mg PO Q8H PRN PRN Na usea #20 tabs 06/09/24 08/11/24 Rx tablet promethazine 25 mg tablet 25 mg PO TID PRN nausea and 07/31/24 08/01/24 Rx vomiting #20 tabs divalproex 500 mg tablet,delayed 500 mg PO QHS Migrain e Headaches 08/11/24 08/10/24 History release insulin glargine 100 unit/mL (3 40 unit subcut QHS dm 08/11/24 08/10/24 History mL) subcutaneous pen (Lantus Solostar U-100 Insulin) omeprazole 20 mg capsule,delayed 20 mg PO DAILY PPI 08/10/24 History release Allergy/AdvReac Type Severity Reaction Status Date / Time Cephalosporins Allergy Severe Anaphylaxis Verified 08/12/24 00:44 piperacillin (From Zosyn) Allergy Intermediate Hives Verified 08/12/24 00:44 ceftriaxone (From Rocephin) Allergy Anaphylaxis Verified 08/12/24 00:44 mushroom Allergy Anaphylaxis Verified 08/12/24 00:44 peanut Allergy Anaphylaxis Verified 08/12/24 00:44 tazobactam (From Zosyn) Allergy NEEDS Verified 08/12/24 00:44 FOLLOW-UP fentanyl AdvReac Low blood Verified 08/12/24 00:44 pressure gabapentin AdvReac Other Verified 08/12/24 00:44 Gadolinium-MRI Contrast AdvReac Vomiting Verified 08/12/24 00:44 Medium Latex, Natural Rubber AdvReac Rash Verified 08/12/24 00:44 vancomycin AdvReac Rash Verified 08/12/24 00:44 Family History Mother CVA (cerebral vascular accident) Thyroid disorder Diabetes Hypertension Heart disease Hyperlipidemia Myocardial infarction, Onset Age: 54 mother had diabetes Father Cancer skin Grandmother Cancer liver Other Arthritis Skin cancer Surgical History S/P colostomy S/P thyroid biopsy (~11/06/19) history insertion suprapubic catheter Status post gastric surgery Hx of foot surgery Hx of ventral hernia repair History of spinal surgery History of cholecystectomy History of dilation and curettage Social History household members: significant other Smoking Status: Never smoker alcohol intake: current substance use type: does not use Physical Exam Narrative Vascular: DP and PT pulses are palpable to left lower extremity. Nonpitting edema appreciated left lower extremity. Evidence of erythema with proximal streaking from the full-thickness wound to the left heel to the mid calf of the left lower extremity. Skin temperature gradient is warm to warm from proximal ankle to distal digits left extremity. Neurological: Light touch intact. Patient does not respond to painful stimuli. Dermatological: Full-thickness wound to the left heel down to subcutaneous tissue fascia and muscle. Evidence of malodor. Negative probe to bone. Evidence of purulent drainage. Musculoskeletal: History of amputation to the distal aspect of the left hallux and fifth ray of the left foot. No pain on palpation to the full-thickness wound left heel. No pain with calf pressure. Const alert, oriented x3 and no apparent distress Lab / Micro Data 08/12/24 05:51 08/12/24 05:51 Labs: Laboratory Results - last 24 hr 08/11/24 21:39: WBC 25.7 H, RBC 4.31, Hgb 13.1, Hct 38.6, MCV 89.6, MCH 30.4, MCHC 33.9, RDW Std Deviation 42.4, RDW Coeff of Claude 12.8, Plt Count 237, MPV 10.0, Immature Gran % (Auto) 1.200 H, Neut % (Auto) 87.4 H, Lymph % (Auto) 7.8 L , [place] % (Auto) 3.3, Eos % (Auto) 0.0, Baso % (Auto) 0.3, Absolute Neuts (auto) 22.5 H, Absolute Lymphs (auto) 2.00, Nucleated RBC % 0, Differential Comment SEE COMMENT, Platelet Estimate ADEQUATE, RBC Morphology N CHROM, Anisocytosis RARE, Macrocytosis RARE, Sodium 127 L, Potassium 4.5, Chloride 91 L, Carbon Dioxide 18.7 L, Anion Gap 17 H, BUN 12, Creatinine 1.19, Estim Creat Clear Calc 66.77, E st GFR (MDRD) Non-Af 59 L, BUN/Creatinine Ratio 9.7 L, Glucose 294 H, Hemoglobin A1c 11.9, Lactic Acid 1.6, Calcium 9.7, Magnesium 1.7, TSH 1.550, Valproic Acid < 3 L 08/12/24 01:25: Sodium 128 L, Potassium 3.9, Chloride 97 L, Carbon Dioxide 17.6 L, Anion Gap 13, BUN 10, Creatinine 0.92, Estim Creat Clear Calc 85.97, Est GFR (MDRD) Non-Af 79, BUN/Creatinine Ratio 11.3, Glucose 257 H, Calcium 8.2 08/12/24 05:45: Urine Color Yellow, Urine Clarity Sl. Cloudy, Urine pH 6.0, Ur Specific [place] 1.015, Urine Protein 30 H, Urine Glucose (UA) 1000 H, Urine Ketones 50 H, Urine Occult Blood 50 H, Urine Nitrite Negative, Urine Bilirubin Negative, Urine Urobilinogen Normal, Ur Leukocyte Esterase 500 H, Urine RBC 0 SEEN, Urine WBC 10-25 SEEN, Ur Squamous Epith Cells 0 SEEN, Urine Bacteria 2+, Urine Mucus 0 SEEN 08/12/24 05:51: WBC 23.4 H, RBC 4.00 L, Hgb 12.2, Hct 37.1, MCV 92.8, MCH 30.5, MCHC 32.9, RDW Std Deviation 44.7 H, RDW Coeff of Claude 13.2, Plt Count , MPV 10.7, Immature Gran % (Auto) 1.500 H, Neut % (Auto) 79.0 H, Lymph % (Auto) 13.9 L, [place] % (Auto) 5.3, Eos % (Auto) 0.0, Baso % (Auto) 0.3, Absolute Neuts (auto) 18.5 H, Absolute Lymphs (auto) 3.25, Nucleated RBC % 0, Platelet Estimate ADEQUATE, Sodium 131 L, Potassium 4.4, Chloride 100, Carbon Dioxide 18.4 L, Anion Gap 13, BUN 9, Creatinine 0.89, Estim Creat Clear Calc 88.86, Est GFR (MDRD) Non-Af 83, BUN/Creatinine Ratio 10.5, Glucose 282 H, Calcium 8.4, Phosphorus 3.0, Total Bilirubin 0.45, AST 51 H, ALT 71 H, Alkaline Phosphatase 95, Total Protein 7.4, Albumin 3.5, Globulin 3.8, Albumin/Globulin Ratio 0.9, Triglycerides 163, Cholesterol 137, LDL Cholesterol, Calc 67, VLDL Cholesterol 33, HDL Cholesterol 38 L, Cholesterol/HDL Ratio 3.63, b-Hydroxybutyric mmol/L 1.1 08/12/24 12:17: POC Glucose 185 H 08/12/24 15:12: Urine Test Negative Micro: Microbiology 08/12/24 01:35 Nasal Secretion MRSA (PCR) - Final Imaging Radiology Impression Lower Extremity CT 08/12/24 00:00 IMPRESSION: No acute bony abnormality or gross bony destructive process of the left tibia/fibula. There are areas of skin thickening and induration of the underlying subcutaneous fat, suggesting cellulitis, greatest in the left heel region. At the posterior margin of the left heel, there appears to be 11 mm skin defect/wound with possible underlying 3.5 x 1.4 cm fluid collection/abscess. Suggest correlation with clinical exam findings. Reading Location[facility] Lower Extremity MRI 08/12/24 00:55 IMPRESSION: The previously noted plantar and posterior ulcer over the left heel is again seen, with interval decreased appearance size of the subcutaneous fluid collection. No extension to the subjacent bone is seen. No acute osseous signal changes are seen. No area of abnormal osseous postcontrast enhancement. Normal appearance of the Achilles tendon is seen. No tendon pathology is noted. No joint effusion is evident. No evidence of osteomyelitis. Reading Location: [id number]
--- NOTE | 2024-08-12 17:13 | PN.HOSP_ITS ---
Reason for Visit Reason for Visit: Diagnoses Sepsis, unspecified organism (08/11/24) Elevated white blood cell count, unspecified (08/11/24) Type 2 diabetes mellitus with diabetic polyneuropathy (08/11/24) Morbid (severe) obesity due to excess calories (08/11/24) Cutaneous abscess of left foot (08/11/24) Cellulitis of left lower limb (08/11/24) Fever, unspecified (08/11/24) Resistance to unspecified antibiotic (08/11/24) Body mass index [BMI] 40.0-44.9, adult (08/11/24) MCFP (current) use of insulin (08/11/24) Patient's noncompliance with other medical treatment and regimen due to unspecified reason (08/11/24) Subjective Subjective Patient was seen and examined today, had infectious diseases see the patient for antibiotic management. I talked briefly with podiatry about the patient's care today. Patient appears to have a fluid collection in the left heel that is approximately 3-1/2 x 1.4 cm. Objective Data Objective Data Vital Signs: Vital Signs Temp Pulse Resp BP Pulse Ox O2 Del Method O2 Flow Rate 97.6 F L 78 16 117/85 H 99 Room Air 2 08/12/24 16:55 08/12/24 17:10 08/12/24 17:10 08/12/24 17:10 08/12/24 17:10 08/12/24 17:10 08/12/24 17:05 Oxygen Flow Rate (L/min) 2 Oxygen Delivery Method Room Air Weight: 99.2 kg Body Mass Index (BMI) 41.3 Intake & Output: Intake and Output for Last 24 Hours 08/10/24 08/11/24 08/12/24 23:59 23:59 23:59 Intake Total 1050 / 1050 3350 / 3350 Output Total 2450 / 2450 Balance 1050 / 1050 900 / 900 Lab / Micro Data 08/12/24 05:51 08/12/24 05:51 Labs: Laboratory Results - last 24 hr 08/11/24 21:39: WBC 25.7 H, RBC 4.31, Hgb 13.1, Hct 38.6, MCV 89.6, MCH 30.4, MCHC 33.9, RDW Std Deviation 42.4, RDW Coeff of Claude 12.8, Plt Count 237, MPV 10.0, Immature Gran % (Auto) 1.200 H, Neut % (Auto) 87.4 H, Lymph % (Auto) 7.8 L , [place] % (Auto) 3.3, Eos % (Auto) 0.0, Baso % (Auto) 0.3, Absolute Neuts (auto) 22.5 H, Absolute Lymphs (auto) 2.00, Nucleated RBC % 0, Differential Comment SEE COMMENT, Platelet Estimate ADEQUATE, RBC Morphology N CHROM, Anisocytosis RARE, Macrocytosis RARE, Sodium 127 L, Potassium 4.5, Chloride 91 L, Carbon Dioxide 18.7 L, Anion Gap 17 H, BUN 12, Creatinine 1.19, Estim Creat Clear Calc 66.77, E st GFR (MDRD) Non-Af 59 L, BUN/Creatinine Ratio 9.7 L, Glucose 294 H, Hemoglobin A1c 11.9, Lactic Acid 1.6, Calcium 9.7, Magnesium 1.7, TSH 1.550, Valproic Acid < 3 L 08/12/24 01:25: Sodium 128 L, Potassium 3.9, Chloride 97 L, Carbon Dioxide 17.6 L, Anion Gap 13, BUN 10, Creatinine 0.92, Estim Creat Clear Calc 85.97, Est GFR (MDRD) Non-Af 79, BUN/Creatinine Ratio 11.3, Glucose 257 H, Calcium 8.2 08/12/24 05:45: Urine Color Yellow, Urine Clarity Sl. Cloudy, Urine pH 6.0, Ur Specific [place] 1.015, Urine Protein 30 H, Urine Glucose (UA) 1000 H, Urine Ketones 50 H, Urine Occult Blood 50 H, Urine Nitrite Negative, Urine Bilirubin Negative, Urine Urobilinogen Normal, Ur Leukocyte Esterase 500 H, Urine RBC 0 SEEN, Urine WBC 10-25 SEEN, Ur Squamous Epith Cells 0 SEEN, Urine Bacteria 2+, Urine Mucus 0 SEEN 08/12/24 05:51: WBC 23.4 H, RBC 4.00 L, Hgb 12.2, Hct 37.1, MCV 92.8, MCH 30.5, MCHC 32.9, RDW Std Deviation 44.7 H, RDW Coeff of Claude 13.2, Plt Count , MPV 10.7, Immature Gran % (Auto) 1.500 H, Neut % (Auto) 79.0 H, Lymph % (Auto) 13.9 L, [place] % (Auto) 5.3, Eos % (Auto) 0.0, Baso % (Auto) 0.3, Absolute Neuts (auto) 18.5 H, Absolute Lymphs (auto) 3.25, Nucleated RBC % 0, Platelet Estimate ADEQUATE, Sodium 131 L, Potassium 4.4, Chloride 100, Carbon Dioxide 18.4 L, Anion Gap 13, BUN 9, Creatinine 0.89, Estim Creat Clear Calc 88.86, Est GFR (MDRD) Non-Af 83, BUN/Creatinine Ratio 10.5, Glucose 282 H, Calcium 8.4, Phosphorus 3.0, Total Bilirubin 0.45, AST 51 H, ALT 71 H, Alkaline Phosphatase 95, Total Protein 7.4, Albumin 3.5, Globulin 3.8, Albumin/Globulin Ratio 0.9, Triglycerides 163, Cholesterol 137, LDL Cholesterol, Calc 67, VLDL Cholesterol 33, HDL Cholesterol 38 L, Cholesterol/HDL Ratio 3.63, b-Hydroxybutyric mmol/L 1.1 08/12/24 12:17: POC Glucose 185 H 08/12/24 15:12: Urine Test Negative Micro: Microbiology 08/12/24 01:35 Nasal Secretion MRSA (PCR) - Final Radiography Diagnostic Testing: Radiology Impression Lower Extremity CT 08/12/24 00:00 IMPRESSION: No acute bony abnormality or gross bony destructive process of the left tibia/fibula. There are areas of skin thickening and induration of the underlying subcutaneous fat, suggesting cellulitis, greatest in the left heel region. At the posterior margin of the left heel, there appears to be 11 mm skin defect/wound with possible underlying 3.5 x 1.4 cm fluid collection/abscess. Suggest correlation with clinical exam findings. Reading [facility] Lower Extremity MRI 08/12/24 00:55 IMPRESSION: The previously noted plantar and posterior ulcer over the left heel is again seen, with interval decreased appearance size of the subcutaneous fluid collection. No extension to the subjacent bone is seen. No acute osseous signal changes are seen. No area of abnormal osseous postcontrast enhancement. Normal appearance of the Achilles tendon is seen. No tendon pathology is noted. No joint effusion is evident. No evidence of osteomyelitis. Reading Location: [address] Physical Exam Const alert, oriented x3 and no apparent distress Constitutional Narrative: Patient appears older than her stated age, she has class III obesity General Appearance: cooperative, well kempt and well developed Orientation / Consciousness: awake, oriented to person, oriented to place and oriented to time HEENT normocephalic, head/scalp atraumatic and moist oral mucous membranes Eyes PERRL, EOMs intact bilaterally and conjunctivae normal Neck supple, no JVD, thyroid normal and no carotid bruits General: trachea midline Resp normal respiratory effort and clear to auscultation bilaterally Auscultation: Negative for rales, rhonchi or wheezes Cardio regular rate, regular rhythm, S1 normal heart sound, S2 normal heart sound, no murmurs, no rub and no gallops GI normal to inspection, nondistended, normoactive bowel sounds, soft to palpation, non-tender and non-distended Skin Skin Narrative: Patient's left lower leg was wrapped with surgical dressing, this was not removed for examination of the area Neuro oriented x3, CN's II-XII intact bilaterally, no focal motor deficits and no sensory deficits noted Sensorium / Orientation: awake and alert Speech: speech normal Psych affect normal Assessment & Plan Assessment/Plan (1) Type 2 diabetes mellitus with foot ulcer: QUALIFIERS: Diabetes mellitus snf insulin use: with snf use Qualified Code(s): E11.621 - Type 2 diabetes mellitus with foot ulcer; L97.509 - Non-pressure chronic ulcer of other part of unspecified foot with unspecified severity; Z79.4 - MCFP (current) use of insulin PLAN: Plan 1. Left lower extremity cellulitis-patient will remain on her current antibiotic coverage per infectious diseases-Flagyl and cefepime #2 left heel abscess-patient will be seen by podiatry, this may need drained, she will remain on her current antibiotic coverage #3 type 2 [id number] blood sugars will be monitored, sliding scale insulin will be administered #4 class III obesity-complicates care, management, recovery, and prognosis #5 Central hypertension-patient will remain on her current medications for blood pressure, blood pressure medications will be adjusted as needed Total clinical time spent by myself addressing the patient's medical issues, reviewing all of her data, and collaborating with the patient's care team: 35 minutes Charges/Coding Visit Charges Inpatient E&M: 03369 Subs Hosp L2
--- NOTE | 2024-08-12 17:16 | PCM.OPRPT ---
Problems Associated Problem List Diagnoses (1) Cutaneous abscess of left foot: (2) Cellulitis of left leg: (3) Type 2 diabetes mellitus with foot ulcer: (4) Non-pressure chronic ulcer of other part of left foot with necrosis of muscle: Operative Report (Standard) Operative Information Date of Procedure: 08/12/24 Pre-Operative Diagnosis: 1. Cellulitis, left lower extremity 2. Cutaneous abscess, left lower extremity 3. Diabetes mellitus type 2 with peripheral neuropathy 4. Full-thickness wound down to muscle, left heel Post-Operative Diagnosis: Same as preoperative diagnosis Surgery/Procedure Performed: Procedure #1: Complex incision and drainage, left foot flux tube attendant: No Type of Anesthesia: General and Local RN Documented Start/Stop Times: Operation Date: 08/12/24 10:00 Case Time Into Pre-Op 08/12/24 14:47 Anesthesia Start 08/12/24 16:04 Into Room 08/12/24 16:04 Out of Pre-Op 08/12/24 16:07 Procedure End 08/12/24 16:41 Anesthesia End 08/12/24 16:50 Out of Room 08/12/24 16:50 Into Recovery 08/12/24 16:52 Procedure Start Time: 16:41 Procedure Stop Time: 16:50 Select all DRAINS/GRAFTS/IMPLANTS that apply: None Special Medications: Per anesthesia Estimated Blood Loss: 25 mL Fluids Replaced: Per anesthesia Specimen collected: Yes Description of specimen(s) removed: Pre and post lavage cultures, left heel Description of surgery: Indications For Operation: Mrs. Paiz is a 43-year-old diabetic female who was admitted to [facility] for left lower extremity cellulitis and heel abscess. Patient is a uncontrolled diabetic and was seen at the emergency room for worsening infection to left lower extremity and diagnosed with left leg cellulitis and abscess. She was admitted to the hospital under medicine for evaluation and treatment. Podiatry was consulted for surgical management and drainage of the cutaneous abscess to the left heel. Upon physical examination the patient showed evidence of a deep-seated abscess to the left heel, drainage with malodor as well as ascending cellulitis to the mid calf to left lower extremity. Patient shows evidence of a possible calcaneal gait from previous surgery from outside provider. When discussed regarding the current condition the patient states she gets approximately 4 infection/abscesses in her left foot every year. Due to the nature of the patient's cellulitis and abscess it was deemed necessary at this time to take patient operating room performed above procedure to help clear her body of infection. The nature of the problem, anticipated procedures, postop recovery/convalences and risk/complications include but not limited to infection, wound healing complications, digital amputation, hypertrophic scarring, numbness, tingling, chronic pain, CRPS, over and under correction, recurrence of deformity, DVT and or PE and the need for further surgery have been discussed in great detail with the patient. All questions have been answered to the patient's satisfaction. There are no guarantees given as to the outcome of the procedure. Description of Procedure: Under mild sedation, the patient was brought into the operating room and placed on the operating table in supine position. Once the patient was under general anesthesia with laryngeal mask airway, the left lower extremity was blocked using approximately 10 cc 0.5% Marcaine plain. No tourniquet was used for this case. Next, the left lower extremity was prepped and draped in normal aseptic manner. Next, a timeout was then undertaken verifying the correct patient, extremity, visibility of preoperative markings, availability of the equipment. Procedure #1: Complex incision and drainage, left heel Next, attention was directed to the full-thickness wound to the left heel. There showed evidence of purulent drainage as well as malodor and deep tissue abscess with full-thickness wound down to subcutaneous tissue, fascia and muscle. Using a #15 blade, the incision was made along the fissure and full-thickness wound followed by blunt dissection to the level of subcutaneous tissue, fascia and muscle. Using continued blunt dissection there showed no evidence of violation past the muscle or periosteum involving the bone. At this time, pre-lavage cultures were taken and passed the back table to be sent off for microbiology and culture and sensitivity. Next pulse lavage was used to irrigate the full-thickness wound using 3000 mL of warm sterile saline. Next, post?lavage cultures were taken and passed back table to be sent off for microbiology and culture and sensitivity. After the 3000 mL washout there showed evidence of healthy granular tissue with no evidence of underlying abscess at this time. Further inspection showed no penetration past the muscle or periosteum to the left heel. The wound will stay open to allow for drainage. The left lower extremities were cleaned and patted dry. Quarter inch iodoform packing was applied to the full-thickness wound/incision followed by dry sterile dressing and double layer Ramos was donned to left lower extremity. The patient tolerated the procedure and anesthesia well and apparent satisfactory condition and was transported to the PACU for further monitoring prior to discharge back to floor. Vital signs stable and vascular status intact to all digits bilateral. Post Operative Plan: Weightbearing: Partial weightbearing to left lower extremity with toe-touch. Full weightbearing right lower extremity. Antibiotics: Cefepime and Flagyl per medicine DVT Prophylaxis: Per medicine Morales: None Dressing: Quarter inch iodoform packing, dry sterile dressing double layer Ramos left lower extremity Pain Medication: Per medicine Follow-up: This will be a staged procedure as this was stage I consisting of complex incision and drainage to left heel. Will plan for delayed primary closure in the next 48 to 72 hours during the patient's hospital stay once the patient stabilizes. Surgical Findings: 1. Evidence of large soft tissue abscess to the left heel with complete drainage via pulse lavage. 2. After pulse lavage, healthy granular tissue to the left heel. 3. No evidence of violation past the muscle or periosteum into the left calcaneal bone. Complications Complications: No Admit VTE Documentation VTE Present on Admission: No VTE Mechan Device Prophylaxis: SCD's VTE Pharm Prophylaxis ordered?: Yes
[2024-08-12] MEDS: Insulin Lispro 100 UNIT/ML INSULN.PEN 12 UNIT SC (17:48)
[2024-08-12] MEDS: Pantoprazole Sodium 20 MG Tablet PO (17:50)
[2024-08-12] MEDS: Ascorbic Acid 500 MG Tablet 1000 MG PO (17:51)
[2024-08-12] MEDS: Lactobacillis Acidophilus 1 CAP PO ×2 (17:51→22:15)
[2024-08-12] MEDS: metroNIDAZOLE 500 MG Tablet PO ×2 (17:52→22:15)
[2024-08-12] MEDS: Tolterodine Tartrate 4 MG CAP.SA PO (17:52)
--- NOTE | 2024-08-12 18:02 | POSTOPAN2_ITS ---
Anesthesia Postop Eval I Sum Postop Eval Completion status Anesthesia document: Postop Eval 1 completed: Yes Anesthesia Postop Eval I Summary Anesthesia Postop Eval I Summary: Anesthesia Postop Eval I: Assessment Summary Airway patent Yes 08/12/24 16:55 [email or web address] Spontaneous unlabored Yes 08/12/24 16:55 [email or web address] respirations Mental status nausea No 08/12/24 16:55 MANAGER [email or web address] Vomiting No 08/12/24 16:55 [email or web address] Anesthesia Postop Eval I: Fluid Summary Crystalloid volume administer 400 08/12/24 16:55 [email or web address] (ml) Colloids volume administered ( ml) Blood Product volume administered (ml) Total IV fluid infused 400 08/12/24 16:55 [email or web address] Anesthesia Postop Eval I: Summary Notes Anesthesia Complication No 08/12/24 16:55 [email or web address] Anesthesia Complication Comment: Post-operative progress note Anesthesia: Postop Eval II Evaluation Mental status: Awake and Calm Pain Level: 1 nausea: No Vomiting: No Complications Anesthesia Complication: No
--- NOTE | 2024-08-12 18:02 | PCM.POSTANE2 ---
Anesthesia Postop Eval I Sum Postop Eval Completion status Anesthesia document: Postop Eval 1 completed: Yes Anesthesia Postop Eval I Summary Anesthesia Postop Eval I Summary: Anesthesia Postop Eval I: Assessment Summary Airway patent Yes 08/12/24 16:55 DIRECTOR OF MUSIC [email or web address] Spontaneous unlabored Yes 08/12/24 16:55 DIRECTOR OF MUSIC [email or web address] respirations Mental status nausea No 08/12/24 16:55 DIRECTOR OF MUSIC [email or web address] Vomiting No 08/12/24 16:55 DIRECTOR OF MUSIC [email or web address] Anesthesia Postop Eval I: Fluid Summary Crystalloid volume administer 400 08/12/24 16:55 DIRECTOR OF MUSIC [email or web address] (ml) Colloids volume administered ( ml) Blood Product volume administered (ml) Total IV fluid infused 400 08/12/24 16:55 DIRECTOR OF MUSIC [email or web address] Anesthesia Postop Eval I: Summary Notes Anesthesia Complication No 08/12/24 16:55 DIRECTOR OF MUSIC [email or web address] Anesthesia Complication Comment: Post-operative progress note Anesthesia: Postop Eval II Evaluation Mental status: Awake and Calm Pain Level: 1 nausea: No Vomiting: No Complications Anesthesia Complication: No
[2024-08-12 18:16] LABS: Bedside Glucose 215 mg/dL (74-106)
[2024-08-12 18:28] LABS: Hemoglobin A1c 11.8 % (<=5.6)
[2024-08-12] MEDS: 0.9% Saline Lock 10 ML Syringe IV (18:36)
[2024-08-12 21:22] LABS: M R Staph aureus DNA By PCR Negative (Negative); Staph aureus DNA By PCR POSITIVE (Negative)
[2024-08-12 21:23] LABS: Probe Check PASS; Specimen Processing Control PASS
[2024-08-12] MEDS: Divalproex Sodium 250 MG Tablet 500 MG PO (22:15)
[2024-08-12] MEDS: traZODone 100 MG Tablet PO (22:15)
[2024-08-12] MEDS: Atorvastatin Calcium 80 MG Tablet PO (22:15)
[2024-08-12] MEDS: Pregabalin 75 MG Capsule PO (22:21)
[2024-08-12 22:37] LABS: Bedside Glucose 322 mg/dL (74-106)
[2024-08-12 23:49] LABS: Erythrocyte Sedimentation Rate 32 mm/hr (0-30)
[2024-08-13 00:01] VITALS: BP 108/65; PULSE 78; RESP 16; TEMP 36.6; O2SAT 96
[2024-08-13 04:29] VITALS: BMI 42.2
[2024-08-13 05:36] VITALS: BP 111/70; PULSE 65; RESP 16; TEMP 36.6; O2SAT 94
[2024-08-13] MEDS: 0.9% Saline Lock 10 ML Syringe IV ×3 (05:38→13:59)
[2024-08-13] MEDS: Cefepime HCl 2 GM in 0.9% Normal Saline (100mL MB+) 100 ML IV ×3 (05:38→21:15)
[2024-08-13] MEDS: metroNIDAZOLE 500 MG Tablet PO ×3 (05:39→22:24)
--- NOTE | 2024-08-13 07:43 | PCM.PN.SRG ---
Subjective Subjective Ms. Paiz 43-year-old female status post complex send drainage to left heel doing well with surgery. She rates some discomfort to the left heel especially with dressing changes. Denies any constitutional symptoms no acute events overnight. Objective Data Objective Data Vital Signs: Vital Signs Temp Pulse Resp BP Pulse Ox O2 Del Method O2 Flow Rate 97.8 F 65 16 111/70 94 Room Air 2 08/13/24 05:36 08/13/24 05:36 08/13/24 05:36 08/13/24 05:36 08/13/24 05:36 08/13/24 05:36 08/12/24 17:05 Oxygen Flow Rate (L/min) 2 Oxygen Delivery Method Room Air Weight: 101.4 kg Body Mass Index (BMI) 42.2 Intake & Output: Intake and Output for Last 24 Hours 08/11/24 08/12/24 08/13/24 23:59 23:59 23:59 Intake Total 1050 / 1050 3750 / 3750 100 / 100 Output Total 2450 / 3950 1999 / 1999 Balance 1050 / 1050 1300 / -200 -1900 / -1900 Lab / Micro Data 08/12/24 05:51 08/12/24 05:51 Labs: Laboratory Results - last 24 hr 08/12/24 05:51: Plt Count 08/12/24 12:17: POC Glucose 185 H 08/12/24 15:12: Urine Test Negative 08/12/24 17:20: ESR 32 H, Hemoglobin A1c 11.8, C-React Prot Ext Range 252.00 H 08/12/24 17:46: POC Glucose 215 H 08/12/24 22:10: POC Glucose 322 H 08/12/24 : S.aureus Protein A PCR POSITIVE H, MRSA (PCR) Negative Micro: Microbiology 08/12/24 01:35 Nasal Secretion MRSA (PCR) - Final Radiography Diagnostic Testing: Radiology Impression Lower Extremity MRI 08/12/24 00:55 IMPRESSION: The previously noted plantar and posterior ulcer over the left heel is again seen, with interval decreased appearance size of the subcutaneous fluid collection. No extension to the subjacent bone is seen. No acute osseous signal changes are seen. No area of abnormal osseous postcontrast enhancement. Normal appearance of the Achilles tendon is seen. No tendon pathology is noted. No joint effusion is evident. No evidence of osteomyelitis. Reading Location: [address] Physical Exam Narrative Vascular: DP and PT pulses are palpable to left lower extremity. Nonpitting edema appreciated left lower extremity. Improved erythema and proximal streaking to left lower extremity. Skin temperature is warm to warm from proximal ankle to distal digits to left lower extremity. Neurological: Light touch intact. Patient does not respond to painful stimuli. Dermatological: Evidence of a surgical incision to the left heel with granular tissue. No drainage. No malodor. Musculoskeletal: No pain to palpation to the full-thickness wound to the left heel. No pain with calf pressure. Const alert, oriented x3 and no apparent distress Assessment & Plan Assessment/Plan (1) Cutaneous abscess of left foot: PLAN: Patient was examined and evaluated. All findings were discussed with the patient. All questions were answered to the patient's satisfaction. MRI (08/12/2024): Show evidence of plantar and posterior ulcer over the left heel with subcutaneous fluid collection. No evidence of bone destruction or osteomyelitis. Patient is status post complex incision and drainage to left heel. DOS: 08/12/2024. Patient is doing well and rates to some pain with dressing changes but overall has a good prognosis during this hospital visit. Further evaluation of the patient's left lower extremity shows evidence of elongated Achilles tendon secondary to past surgery from outside provider. Patient has a calcaneal gait and will require outpatient elective flexor looses longus tendon transfer once A1c gets below 9.0%. Following this should be placed in bilateral solid AFOs. Wound care on board for dressing changes to left lower extremity. Medicine: On board, medical management, IV antibiotics cefepime and Flagyl Infectious disease: Consult pending WBC: 25.7 -> 23.4 Glu: 282 HbA1c: 11.8 ESR: 32 CRP: 252.0 Podiatry will continue to follow the patient while in house. I will plan for delayed primary closure to the left heel versus Monday. Will continue to follow patient while in house. Please reach out to Dr. Gonzalez with any questions or concerns. Thank you for the consultation! 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
[2024-08-13 08:05] LABS: Phosphorus 2.7 mg/dL (2.7-4.5)
[2024-08-13 08:39] LABS: Bedside Glucose 258 mg/dL (74-106)
[2024-08-13 09:00] VITALS: BP 97/60; PULSE 73; RESP 16; TEMP 36.6; O2SAT 93
[2024-08-13] MEDS: Linezolid 600 MG 600 MG/300 ML BAG 200 MG IV ×2 (09:02→22:20)
[2024-08-13] MEDS: Loratadine 10 MG Tablet PO (09:03)
[2024-08-13] MEDS: Cholecalciferol (Vit D3) 125 MCG CAPSULE (5,000 UNITS) PO (09:03)
[2024-08-13] MEDS: Pregabalin 75 MG Capsule PO ×2 (09:03→22:24)
[2024-08-13] MEDS: Lactobacillis Acidophilus 1 CAP PO ×4 (09:04→22:25)
[2024-08-13] MEDS: Ascorbic Acid 500 MG Tablet 1000 MG PO ×2 (09:04→16:44)
[2024-08-13] MEDS: Pantoprazole Sodium 20 MG Tablet PO (09:04)
[2024-08-13] MEDS: Zinc Sulfate 50 mg zinc (220 mg) ORAL capsule PO (09:05)
[2024-08-13] MEDS: Tolterodine Tartrate 4 MG CAP.SA PO (09:06)
[2024-08-13 09:07] VITALS: O2SAT 95
[2024-08-13] MEDS: Insulin Lispro 100 UNIT/ML INSULN.PEN 12 UNIT SC ×3 (09:07→16:45)
[2024-08-13] MEDS: Insulin Lispro 100 UNIT/ML INSULN.PEN SC ×3 (09:08→16:46)
[2024-08-13] MEDS: Morphine 2 MG/ML Syringe IV (09:19)
[2024-08-13 10:05] LABS: Hematocrit 31.3 % (37-47); Hemoglobin 10.5 g/dL (12.0-15.0); Mean Corp Hgb Conc 33.5 g/dL (32-36); Mean Corpuscular Hgb 30.5 pg (27.0-32.0); Mean Platelet Vol. 10.7 fl (6.2-12.0); Platelet Count 164 K/mm3 (150-450); RBC Distribution Width CV 13.2 % (11.6-14.6); RBC Distribution Width SD 43.6 fl (35.1-43.9); Red Blood Count 3.44 M/mm3 (4.2-5.4); White Blood Count 18.2 K/mm3 (4.4-11.0)
--- NOTE | 2024-08-13 10:12 | PCM.CONS.GEN ---
Assessment & Plan Assessment/Plan (1) Abscess of left heel: PLAN: admitted on linezolid and clinda. Now s/p OR 08/12/[address] Gonzalez for I&D of abscess. On vanc/cefepime/flagyl, feeling better, will continue. Wound cx pending. 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 Seen in ED 07/31, given 10 days bactrim which helped somewhat. When abx stopped, developed fever, chills, nausea, not feeling well. Pain was moderate/severe. Came back to ED 08/11, admitted on linezolid and clinda. Now s/p OR 08/12/[address] Gonzalez for I&D of abscess. On vanc/cefepime/flagyl, feeling better. Full ROS performed and neg except as noted above. 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 Diabetic polyneuropathy Non-smoker Weakness Hyperglycemia Sepsis Urinary tract infection Diabetic foot infection Urinary tract infection Thyroid cyst Hematochezia Chronic nausea Insomnia PSVT (paroxysmal supraventricular tachycardia) Panic attacks Hyperlipidemia Lipomeningocele History of kidney stones Essential hypertension Dysthymic disorder DJD (degenerative joint disease) of thoracic spine Arthritis Anxiety and depression Uninodular goiter Non-compliance UTI (urinary tract infection) Cellulitis of left lower extremity Infection of bladder catheter Ulcer of left heel and midfoot with fat layer exposed Lower extremity edema Delayed wound healing Type 2 diabetes mellitus with diabetic polyneuropathy Diabetic ulcer of left heel with fat layer exposed Normochromic normocytic anemia Constipation Neurogenic bowel Neurogenic bladder Hydronephrosis of right kidney UTI (urinary tract infection) Diabetes mellitus, type II Morbid obesity with BMI of 40.0-44.9, adult Spina bifida aperta of lumbar spine History of migraine Chronic back pain Home Medications ?Medication ?Instructions ?Recorded ?Last Taken ?Type furosemide 20 mg tablet 20 mg PO 2200 fluid 08/28/18 08/10/24 History furosemide 40 mg tablet 40 mg PO BREAKFAST fluid 04/05/19 08/10/24 History oxybutynin chloride 15 mg 15 mg PO DAILY bladder 11/12/19 08/10/24 History tablet,extended release 24 hr acetaminophen 500 mg tablet 1,000 mg PO TID PRN PRN Pain Or 02/12/20 08/11/24 History Fever trazodone 100 mg tablet 100 mg PO QHS sleep 01/19/21 08/10/24 History atorvastatin 80 mg tablet 80 mg PO DAILY cholesterol 01/29/21 08/10/24 History pen needle, diabetic 32 gauge x #400 ea 03/05/21 Unknown Rx 5/32 (BD Ultra-Fine Hope Pen Needle) lisinopril 5 mg tablet 2.5 mg (1/2 x 5 mg) PO DAILY #90 01/21/22 08/10/24 Rx tabs pen needle, diabetic 32 gauge x #350 ea 09/01/22 Unknown Rx 5/32 (BD Ultra-Fine Hope Pen Needle) loratadine 10 mg tablet (Allergy 10 mg PO DAILY Antigistamine 11/07/23 08/10/24 History Relief (loratadine)) propranolol 20 mg tablet 20 mg PO BID Beta Pan 11/07/23 08/10/24 History insulin aspart See Rx Instructions subcut TID 02/10/24 08/10/24 History (niacinamide)(U-100) 100 unit/mL(3 Glucose control mL) subcutaneous pen (Fiasp FlexTouch U-100 Insulin) pregabalin 75 mg capsule 75 mg PO BID Diabetic nerve pain 02/10/24 08/10/24 History ondansetron 4 mg disintegrating 4 mg PO Q8H PRN PRN Nausea #20 tabs 06/09/24 08/11/24 Rx tablet promethazine 25 mg tablet 25 mg PO TID PRN nausea and 07/31/24 08/01/24 Rx vomiting #20 tabs divalproex 500 mg tablet,delayed 500 mg PO QHS Migraine Headaches 08/11/24 08/10/24 History release insulin glargine 100 unit/mL (3 40 unit subcut QHS dm 08/11/24 08/10/24 History mL) subcutaneous pen (Lantus Solostar U-100 Insulin) omeprazole 20 mg capsule,delayed 20 mg PO DAILY PPI 08/11/24 08/10/24 History release Allergy/AdvReac Type Severity Reaction Status Date / Time Cephalosporins Allergy Severe Anaphylaxis Verified 08/12/24 00:44 piperacillin (From Zosyn) Allergy Intermediate Hives Verified 08/12/24 00:44 ceftriaxone (From Rocephin) Allergy Anaphylaxis Verified 08/12/24 00:44 mushroom Allergy Anaphylaxis Verified 08/12/24 00:44 peanut Allergy Anaphylaxis Verified 08/12/24 00:44 tazobactam (From Zosyn) Allergy NEEDS Verified 08/12/24 00:44 FOLLOW-UP fentanyl AdvReac Low blood Verified 08/12/24 00:44 pressure gabapentin AdvReac Other Verified 08/12/24 00:44 Gadolinium-MRI Contrast AdvReac Vomiting Verified 08/12/24 00:44 Medium Latex, Natural Rubber AdvReac Rash Verified 08/12/24 00:44 vancomycin AdvReac Rash Verified 08/12/24 00:44 Family History Mother CVA (cerebral vascular accident) Thyroid disorder Diabetes Hypertension Heart disease Hyperlipidemia Myocardial infarction, Onset Age: 54 mother had diabetes Father Cancer skin Grandmother Cancer liver Other Arthritis Skin cancer Surgical History S/P colostomy S/P thyroid biopsy (~11/06/19) history insertion suprapubic catheter Status post gastric surgery Hx of foot surgery Hx of ventral hernia repair History of spinal surgery History of cholecystectomy History of dilation and curettage Social History household members: significant other Smoking Status: Never smoker alcohol intake: current substance use type: does not use Physical Exam Const alert, oriented x3 and no apparent distress General Appearance: cooperative HEENT normocephalic and head/scalp atraumatic Eyes PERRL and EOMs intact bilaterally Neck supple and No nodes Resp normal air movement and clear to auscultation bilaterally Cardio regular rate and regular rhythm GI soft to palpation, non-tender and non-distended Extremity General Extremity: edema Skin Skin Narrative: LLE wrapped Neuro CN's II-XII intact bilaterally Lab / Micro Data Attestation: I reviewed the patient's lab results. 08/13/24 06:43 08/12/24 05:51 Labs: Laboratory Results - last 24 hr 08/12/24 05:51: Plt Count 08/12/24 12:17: POC Glucose 185 H 08/12/24 15:12: Urine Test Negative 08/12/24 17:20: ESR 32 H, Hemoglobin A1c 11.8, C-React Prot Ext Range 252.00 H 08/12/24 17:46: POC Glucose 215 H 08/12/24 22:10: POC Glucose 322 H 08/12/24 : S.aureus Protein A PCR POSITIVE H, MRSA (PCR) Negative 08/13/24 06:43: WBC 18.2 H, RBC 3.44 L, Hgb 10.5 L, Hct 31.3 L, MCV 91.0, MCH 30.5, MCHC 33.5, RDW Std Deviation 43.6, RDW Coeff of Claude 13.2, Plt Count 164, MPV 10.7, Phosphorus 2.7 08/13/24 08:21: POC Glucose 258 H Micro: Microbiology 08/12/24 Unknown Tissue - Left Foot Wound Culture - Preliminary 08/12/24 Unknown Tissue - Left Foot Wound Culture - Preliminary Imaging Radiology Impression Lower Extremity MRI 08/12/24 00:55 IMPRESSION: The previously noted plantar and posterior ulcer over the left heel is again seen, with interval decreased appearance size of the subcutaneous fluid collection. No extension to the subjacent bone is seen. No acute osseous signal changes are seen. No area of abnormal osseous postcontrast enhancement. Normal appearance of the Achilles tendon is seen. No tendon pathology is noted. No joint effusion is evident. No evidence of osteomyelitis. Reading Location: [id number]
[2024-08-13 10:19] LABS: Anion Gap 13 (5-15); BUN 14 mg/dL (4-19); BUN/Creat Ratio 17.1 RATIO (10-20); Calcium,Total 8.5 mg/dL (7.6-11.0); Chloride 104 mmol/L (98-108); Creatinine, Serum 0.79 mg/dL (0.70-1.20); EST Glomerular Filtration Rate 96 (>60); Glucose 287 mg/dL (70-99); Potassium 4.8 mmol/L (3.3-5.1); Sodium Level 135 mmol/L (133-145)
--- NOTE | 2024-08-13 10:32 | WOUNDNOTE ---
wound photo: left heel
--- NOTE | 2024-08-13 10:32 | WOUNDNOTE ---
skin photo: left lower leg
[2024-08-13 11:53] LABS: Bedside Glucose 323 mg/dL (74-106)
[2024-08-13] MEDS: oxyCODONE 5 MG Tablet PO ×3 (14:00→22:24)
[2024-08-13 17:11] LABS: Bedside Glucose 307 mg/dL (74-106)
--- NOTE | 2024-08-13 18:10 | PCM.PN.HOSP ---
Reason for Visit Reason for Visit: Diagnoses Sepsis, unspecified organism (08/11/24) Elevated white blood cell count, unspecified (08/11/24) Type 2 diabetes mellitus with diabetic polyneuropathy (08/11/24) Type 2 diabetes mellitus with foot ulcer (08/11/24) Morbid (severe) obesity due to excess calories (08/11/24) Cutaneous abscess of left foot (08/11/24) Cellulitis of left lower limb (08/11/24) Non-pressure chronic ulcer of other part of unspecified foot with unspecified severity (08/11/24) Non-pressure chronic ulcer of other part of left foot with necrosis of muscle (08/11/24) Fever, unspecified (08/11/24) Resistance to unspecified antibiotic (08/11/24) Body mass index [BMI] 40.0-44.9, adult (08/11/24) [facility] (current) use of insulin (08/11/24) Patient's noncompliance with other medical treatment and regimen due to unspecified reason (08/11/24) Subjective Subjective Patient was seen and examined today, white count is improved from yesterday. Patient's CHEM panel was unremarkable except for a glucose of 287. Patient voices no complaints of any left foot pain at the time of my examination. Objective Data Objective Data Vital Signs: Vital Signs Temp Pulse Resp BP Pulse Ox O2 Del Method O2 Flow Rate 97.9 F 73 16 97/60 95 Room Air 2 08/13/24 09:00 08/13/24 09:00 08/13/24 09:00 08/13/24 09:00 08/13/24 09:07 08/13/24 09:07 08/12/24 17:05 Oxygen Flow Rate (L/min) 2 Oxygen Delivery Method Room Air Weight: 101.4 kg Body Mass Index (BMI) 42.2 Intake & Output: Intake and Output for Last 24 Hours 08/11/24 08/12/24 08/13/24 23:59 23:59 23:59 Intake Total 1050 / 1050 3750 / 3750 500 / 500 Output Total 2450 / 3950 3700 / 3700 Balance 1050 / 1050 1300 / -200 -3200 / -3200 Lab / Micro Data 08/13/24 06:43 08/13/24 06:43 Labs: Laboratory Results - last 24 hr 08/12/24 17:20: ESR 32 H, Hemoglobin A1c 11.8, C-React Prot Ext Range 252.00 H 08/12/24 17:46: POC Glucose 215 H 08/12/24 22:10: POC Glucose 322 H 08/12/24 : S.aureus Protein A PCR POSITIVE H, MRSA (PCR) Negative 08/13/24 06:43: WBC 18.2 H, RBC 3.44 L, Hgb 10.5 L, Hct 31.3 L, MCV 91.0, MCH 30.5, MCHC 33.5, RDW Std Deviation 43.6, RDW Coeff of Claude 13.2, Plt Count 164, MPV 10.7, Sodium 135, Potassium 4.8, Chloride 104, Carbon Dioxide 18.0 L, Anion Gap 13, BUN 14, Creatinine 0.79, Estim Creat Clear Calc 101.40, Est GFR (MDRD) Non-Af 96, BUN/Creatinine Ratio 17.1, Glucose 287 H, Calcium 8.5, Phosphorus 2.7 08/13/24 08:21: POC Glucose 258 H 08/13/24 11:30: POC Glucose 323 H 08/13/24 16:41: POC Glucose 307 H Micro: Microbiology 08/12/24 Unknown Tissue - Left Foot Gram Stain - Final 08/12/24 Unknown Tissue - Left Foot Gram Stain - Final 08/12/24 01:35 Nasal Secretion MRSA (PCR) - Final Physical Exam Narrative alert, oriented x3 and no apparent distress Constitutional Narrative: Patient appears older than her stated age, she has class III obesity General Appearance: cooperative, well kempt and well developed Orientation / Consciousness: awake, oriented to person, oriented to place and oriented to time HEENT normocephalic, head/scalp atraumatic and moist oral mucous membranes Eyes PERRL, EOMs intact bilaterally and conjunctivae normal Neck supple, no JVD, thyroid normal and no carotid bruits General: trachea midline Resp normal respiratory effort and clear to auscultation bilaterally Auscultation: Negative for rales, rhonchi or wheezes Cardio regular rate, regular rhythm, S1 normal heart sound, S2 normal heart sound, no murmurs, no rub and no gallops GI normal to inspection, nondistended, normoactive bowel sounds, soft to palpation, non-tender and non-distended Skin Skin Narrative: Patient's left lower leg was wrapped with surgical dressing, this was not removed for examination of the area Neuro oriented x3, CN's II-XII intact bilaterally, no focal motor deficits and no sensory deficits noted Sensorium / Orientation: awake and alert Speech: speech normal Psych affect normal Assessment & Plan Assessment/Plan (1) Type 2 diabetes mellitus with foot ulcer: QUALIFIERS: Diabetes mellitus mcfp insulin use: with terminologist use Qualified Code(s): E11.621 - Type 2 diabetes mellitus with foot ulcer; L97.509 - Non-pressure chronic ulcer of other part of unspecified foot with unspecified severity; Z79.4 - [facility] (current) use of insulin PLAN: Plan 1. Sepsis secondary to left lower extremity cellulitis/left heel abscess-patient will remain on her current antibiotic coverage per infectious diseases-Flagyl and cefepime #2 left heel abscess-patient is being seen by podiatry and may require further surgery on the left foot #3 type 2 qmeemksa-btrckxhjcwql-ziwygwb's blood sugars will be monitored, sliding scale insulin will be administered #4 class III obesity-complicates care, management, recovery, and prognosis #5 Central hypertension-patient will remain on her current medications for blood pressure, blood pressure medications will be adjusted as needed Total clinical time spent by myself addressing the patient's medical issues, reviewing all of her data, and collaborating with the patient's care team: 35 minutes Charges/Coding Visit Charges Inpatient E&M: 86997 Subs Hosp L2
[2024-08-13 22:19] VITALS: BP 122/64; PULSE 71; RESP 16; TEMP 36.6; O2SAT 98
[2024-08-13] MEDS: Insulin Glargine-YFGN 100 UNIT/ML Pen 30 UNIT SC (22:23)
[2024-08-13] MEDS: Divalproex Sodium 250 MG Tablet 500 MG PO (22:25)
[2024-08-13] MEDS: Atorvastatin Calcium 80 MG Tablet PO (22:25)
[2024-08-13] MEDS: traZODone 100 MG Tablet PO (22:25)
[2024-08-13 23:21] LABS: Bedside Glucose 270 mg/dL (74-106)
[2024-08-14] VITALS (8 sets, daily range): BP systolic 98–121; BP diastolic 53–72; PULSE 76–83; RESP 14–18; TEMP 36.4–36.7; O2SAT 94–100; BMI 42.4
[2024-08-14] MEDS: metroNIDAZOLE 500 MG Tablet PO ×3 (05:26→22:36)
[2024-08-14] MEDS: Cefepime HCl 2 GM in 0.9% Normal Saline (100mL MB+) 100 ML IV ×3 (05:26→21:29)
[2024-08-14] MEDS: 0.9% Saline Lock 10 ML Syringe IV ×2 (05:27→21:30)
[2024-08-14] MEDS: Insulin Lispro 100 UNIT/ML INSULN.PEN 12 UNIT SC ×3 (08:27→16:25)
[2024-08-14] MEDS: Insulin Lispro 100 UNIT/ML INSULN.PEN SC ×3 (08:28→16:26)
[2024-08-14] MEDS: oxyCODONE 5 MG Tablet PO ×3 (09:01→22:10)
[2024-08-14] MEDS: Lactobacillis Acidophilus 1 CAP PO ×4 (09:02→22:35)
[2024-08-14] MEDS: Zinc Sulfate 50 mg zinc (220 mg) ORAL capsule PO (09:02)
[2024-08-14] MEDS: Ascorbic Acid 500 MG Tablet 1000 MG PO ×2 (09:02→16:22)
[2024-08-14] MEDS: Pregabalin 75 MG Capsule PO ×2 (09:02→23:20)
[2024-08-14] MEDS: Loratadine 10 MG Tablet PO (09:02)
[2024-08-14] MEDS: Cholecalciferol (Vit D3) 125 MCG CAPSULE (5,000 UNITS) PO (09:02)
[2024-08-14] MEDS: Linezolid 600 MG 600 MG/300 ML BAG 200 MG IV ×2 (09:03→22:33)
[2024-08-14] MEDS: Tolterodine Tartrate 4 MG CAP.SA PO (09:03)
[2024-08-14] MEDS: Pantoprazole Sodium 20 MG Tablet PO (09:03)
[2024-08-14 09:26] LABS: Bedside Glucose 324 mg/dL (74-106)
--- NOTE | 2024-08-14 12:59 | PCM.PN.HOSP ---
Reason for Visit Reason for Visit: Diagnoses Sepsis, unspecified organism (08/11/24) Elevated white blood cell count, unspecified (08/11/24) Type 2 diabetes mellitus with diabetic polyneuropathy (08/11/24) Type 2 diabetes mellitus with foot ulcer (08/11/24) Morbid (severe) obesity due to excess calories (08/11/24) Cutaneous abscess of left foot (08/11/24) Cellulitis of left lower limb (08/11/24) Non-pressure chronic ulcer of other part of unspecified foot with unspecified severity (08/11/24) Non-pressure chronic ulcer of other part of left foot with necrosis of muscle (08/11/24) Fever, unspecified (08/11/24) Resistance to unspecified antibiotic (08/11/24) Body mass index [BMI] 40.0-44.9, adult (08/11/24) care home (current) use of insulin (08/11/24) Patient's noncompliance with other medical treatment and regimen due to unspecified reason (08/11/24) Subjective Subjective Patient was seen and examined today, she voices no complaints at the time of my examination. Objective Data Objective Data Vital Signs: Vital Signs Temp Pulse Resp BP Pulse Ox O2 Del Method O2 Flow Rate 97.6 F L 76 14 100/53 L 95 Room Air 2 08/14/24 08:21 08/14/24 08:21 08/14/24 08:21 08/14/24 08:21 08/14/24 08:21 08/14/24 10:00 08/12/24 17:05 Oxygen Flow Rate (L/min) 2 Oxygen Delivery Method Room Air Weight: 101.9 kg Body Mass Index (BMI) 42.4 Intake & Output: Intake and Output for Last 24 Hours 08/12/24 08/13/24 08/14/24 23:59 23:59 23:59 Intake Total 3750 / 3750 1900 / 1900 400 / 400 Output Total 2450 / 3950 3900 / 4600 1200 / 1200 Balance 1300 / -200 -2000 / -2700 -800 / -800 Lab / Micro Data 08/13/24 06:43 08/13/24 06:43 Labs: Laboratory Results - last 24 hr 08/13/24 16:41: POC Glucose 307 H 08/13/24 22:23: POC Glucose 270 H 08/14/24 08:25: POC Glucose 324 H Micro: Microbiology 08/11/24 22:19 Blood Culture (Wb) - Left Forearm Blood Culture - Preliminary No growth in 48 hours. 08/11/24 21:39 Blood Culture (Wb) - Anticubital Left Blood Culture - Preliminary No growth in 48 hours. 08/12/24 Unknown Tissue - Left Foot Gram Stain - Final 08/12/24 Unknown Tissue - Left Foot Wound Culture - Preliminary Staphylococcus aureus Streptococcus group A Gram positive organism 08/12/24 Unknown Tissue - Left Foot Anaerobic Culture - Preliminary 08/12/24 Unknown Tissue - Left Foot Gram Stain - Final 08/12/24 Unknown Tissue - Left Foot Wound Culture - Preliminary Staphylococcus aureus Gram Positive Cocci 08/12/24 Unknown Tissue - Left Foot Anaerobic Culture - Preliminary 08/12/24 01:35 Nasal Secretion MRSA (PCR) - Final Physical Exam Narrative alert, oriented x3 and no apparent distress Constitutional Narrative: Patient appears older than her stated age, she has class III obesity General Appearance: cooperative, well kempt and well developed Orientation / Consciousness: awake, oriented to person, oriented to place and oriented to time HEENT normocephalic, head/scalp atraumatic and moist oral mucous membranes Eyes PERRL, EOMs intact bilaterally and conjunctivae normal Neck supple, no JVD, thyroid normal and no carotid bruits General: trachea midline Resp normal respiratory effort and clear to auscultation bilaterally Auscultation: Negative for rales, rhonchi or wheezes Cardio regular rate, regular rhythm, S1 normal heart sound, S2 normal heart sound, no murmurs, no rub and no gallops GI normal to inspection, nondistended, normoactive bowel sounds, soft to palpation, non-tender and non-distended Skin Skin Narrative: Patient's left lower leg was wrapped with surgical dressing, this was not removed for examination of the area Neuro oriented x3, CN's II-XII intact bilaterally, no focal motor deficits and no sensory deficits noted Sensorium / Orientation: awake and alert Speech: speech normal Psych affect normal Assessment & Plan Assessment/Plan (1) Type 2 diabetes mellitus with foot ulcer: QUALIFIERS: Diabetes mellitus chcf insulin use: with terminal worker use Qualified Code(s): E11.621 - Type 2 diabetes mellitus with foot ulcer; L97.509 - Non-pressure chronic ulcer of other part of unspecified foot with unspecified severity; 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 Sepsis secondary to left lower extremity cellulitis/left heel abscess-patient will remain on her current antibiotic coverage per infectious diseases-Flagyl and cefepime #2 left heel abscess-patient is being seen by podiatry and may require further surgery on the left foot this week #3 type 2 apeprevl-zmryjzfiyccz-yddvutv's blood sugars will be monitored, sliding scale insulin will be administered #4 class III obesity-complicates care, management, recovery, and prognosis #5 Central hypertension-patient will remain on her current medications for blood pressure, blood pressure medications will be adjusted as needed Total clinical time spent by myself addressing the patient's medical issues, reviewing all of her data, and collaborating with the patient's care team: 35 minutes Charges/Coding Visit Charges Inpatient E&M: 22668 Subs Hosp L2
[2024-08-14] MEDS: 0.9% Normal Saline (100mL Bag) 100 ML 15 ML IV ×2 (13:02→21:28)
[2024-08-14 13:29] LABS: Bedside Glucose 227 mg/dL (74-106)
--- NOTE | 2024-08-14 16:26 | PCM.PN.ID ---
Physical Exam Narrative Feeling better, no fever, no n/v/d. Const alert and no apparent distress General Appearance: cooperative Resp normal air movement and clear to auscultation bilaterally Cardio regular rate and regular rhythm GI soft to palpation, non-tender and non-distended Skin Skin Narrative: foot wrapped ID ID: Route of nutrition/ use of supplements: [] Nutritional Intake: [] IV Site: [] Morales Catheter: [] Assessment & Plan Assessment/Plan (1) Abscess of left heel: PLAN: Now s/p OR 08/12/[address] Gonzalez for I&D of abscess. On vanc/cefepime/flagyl, feeling better, will continue. Wound cx staph aureus, strep, gram pos. OR planned for 08/16/24. Will follow, d/w Dr. 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
[2024-08-14 16:46] LABS: Bedside Glucose 238 mg/dL (74-106)
[2024-08-14] MEDS: Insulin Glargine-YFGN 100 UNIT/ML Pen 30 UNIT SC (22:31)
[2024-08-14] MEDS: Divalproex Sodium 250 MG Tablet 500 MG PO (22:35)
[2024-08-14] MEDS: Atorvastatin Calcium 80 MG Tablet PO (22:39)
[2024-08-14] MEDS: traZODone 100 MG Tablet PO (23:19)
[2024-08-15 00:29] LABS: Bedside Glucose 217 mg/dL (74-106)
[2024-08-15 05:37] LABS: Hematocrit 33.5 % (37-47); Hemoglobin 10.9 g/dL (12.0-15.0); Mean Corp Hgb Conc 32.5 g/dL (32-36); Mean Corpuscular Hgb 29.9 pg (27.0-32.0); Mean Platelet Vol. 10.7 fl (6.2-12.0); POSITIVE COUNT YES; POSITIVE MORPHOLOGY YES; Platelet Count 224 K/mm3 (150-450); RBC Distribution Width CV 13.6 % (11.6-14.6); RBC Distribution Width SD 45.7 fl (35.1-43.9); Red Blood Count 3.64 M/mm3 (4.2-5.4); White Blood Count 10.5 K/mm3 (4.4-11.0)
[2024-08-15 05:39] VITALS: BP 110/71; PULSE 65; RESP 16; TEMP 36.6; O2SAT 100
[2024-08-15] MEDS: 0.9% Saline Lock 10 ML Syringe IV ×3 (05:41→21:42)
[2024-08-15] MEDS: Cefepime HCl 2 GM in 0.9% Normal Saline (100mL MB+) 100 ML IV ×3 (05:41→21:43)
[2024-08-15] MEDS: metroNIDAZOLE 500 MG Tablet PO ×3 (05:43→21:49)
[2024-08-15 05:45] LABS: Differential Indicated MANUAL DIFF
[2024-08-15 06:00] VITALS: BMI 44.6
[2024-08-15 06:21] LABS: Anion Gap 11 (5-15); BUN 17 mg/dL (4-19); BUN/Creat Ratio 26.6 RATIO (10-20); Calcium,Total 8.4 mg/dL (7.6-11.0); Carbon Dioxide 19.9 mmol/L (21.0-32.0); Chloride 107 mmol/L (98-108); Creatinine, Serum 0.65 mg/dL (0.70-1.20); EST Glomerular Filtration Rate 113 (>60); Glucose 135 mg/dL (70-99); Potassium 3.8 mmol/L (3.3-5.1); Sodium Level 138 mmol/L (133-145)
[2024-08-15 07:23] LABS: Metamyelocyte 2 % (0-1); Total Cells Counted 100 (MANUAL DIFF)
[2024-08-15 07:24] LABS: Atypical Lymphocyte 2+ %; Eosinophil 1 % (0-5); Lymphocyte 36 % (19-41); Monocyte 9 % (0-10); Myelocyte 2 % (0-0); Neutrophil-Segmented 50 % (47-70); Pathologist Review May foll
[2024-08-15 07:25] LABS: Absolute Lymphocyte Count 3.76 X10^3/uL (0.83-4.51); Absolute Neutrophil Count 5.2 X10^3/uL (2.0-7.7)
--- NOTE | 2024-08-15 08:15 | PCM.PN.HOSP ---
Reason for Visit Reason for Visit: Diagnoses Sepsis, unspecified organism (08/11/24) Elevated white blood cell count, unspecified (08/11/24) Type 2 diabetes mellitus with diabetic polyneuropathy (08/11/24) Type 2 diabetes mellitus with foot ulcer (08/11/24) Morbid (severe) obesity due to excess calories (08/11/24) Cutaneous abscess of left foot (08/11/24) Cellulitis of left lower limb (08/11/24) Non-pressure chronic ulcer of other part of unspecified foot with unspecified severity (08/11/24) Non-pressure chronic ulcer of other part of left foot with necrosis of muscle (08/11/24) Fever, unspecified (08/11/24) Resistance to unspecified antibiotic (08/11/24) Body mass index [BMI] 40.0-44.9, adult (08/11/24) [facility] (current) use of insulin (08/11/24) Patient's noncompliance with other medical treatment and regimen due to unspecified reason (08/11/24) Subjective Subjective Patient was seen and examined today, he voices no complaints to this examiner. CBC today showed a normal white blood cell count, chemistry profile was unremarkable. Objective Data Objective Data Vital Signs: Vital Signs Temp Pulse Resp BP Pulse Ox O2 Del Method O2 Flow Rate 97.9 F 65 16 110/71 100 Room Air 2 08/15/24 05:39 08/15/24 05:39 08/15/24 05:39 08/15/24 05:39 08/15/24 05:39 08/15/24 05:39 08/12/24 17:05 Oxygen Flow Rate (L/min) 2 Oxygen Delivery Method Room Air Weight: 107.1 kg Body Mass Index (BMI) 44.6 Intake & Output: Intake and Output for Last 24 Hours 08/13/24 08/14/24 08/15/24 23:59 23:59 23:59 Intake Total 1900 / 1900 2201 / 2201 400 / 400 Output Total 3900 / 4600 3750 / 3750 450 / 450 Balance -2000 / -2700 -1549 / -1549 -50 / -50 Lab / Micro Data 08/15/24 05:12 08/15/24 05:12 Labs: Laboratory Results - last 24 hr 08/14/24 08:25: POC Glucose 324 H 08/14/24 12:57: POC Glucose 227 H 08/14/24 16:25: POC Glucose 238 H 08/14/24 22:30: POC Glucose 217 H 08/15/24 05:12: WBC 10.5, RBC 3.64 L, Hgb 10.9 L, Hct 33.5 L, MCV 92.0, MCH 29.9, MCHC 32.5, RDW Std Deviation 45.7 H, RDW Coeff of Claude 13.6, Plt Count 224, MPV 10.7, Neut % (Auto) Not Reportable, Absolute Neuts (auto) 5.2, Absolute Lymphs (auto) 3.76, Total Counted 100, Neutrophils % (Manual) 50, Lymphocytes % (Manual) 36, Monocytes % (Manual) 9, Eosinophils % (Manual) 1, Metamyelocytes % 2 H, Myelocytes % 2 H, Diff Path Review May foll, Atypical Lymphocytes 2+, Sodium 138, Potassium 3.8, Chloride 107, Carbon Dioxide 19.9 L, Anion Gap 11, BUN 17, Creatinine 0.65 L, Estim Creat Clear Calc 127.30, Est GFR (MDRD) Non-Af 113, BUN/Creatinine Ratio 26.6 H, Glucose 135 H, Calcium 8.4 Micro: Microbiology 08/12/24 Unknown Tissue - Left Foot Gram Stain - Final 08/12/24 Unknown Tissue - Left Foot Wound Culture - Preliminary Staphylococcus aureus Gram Positive Cocci 08/12/24 Unknown Tissue - Left Foot Gram Stain - Final 08/12/24 Unknown Tissue - Left Foot Wound Culture - Preliminary Staphylococcus aureus Streptococcus group A Gram positive organism 08/11/24 22:19 Blood Culture (Wb) - Left Forearm Blood Culture - Preliminary No growth in 48 hours. 08/11/24 21:39 Blood Culture (Wb) - Anticubital Left Blood Culture - Preliminary No growth in 48 hours. 08/12/24 01:35 Nasal Secretion MRSA (PCR) - Final Physical Exam Narrative alert, oriented x3 and no apparent distress Constitutional Narrative: Patient appears older than her stated age, she has class III obesity General Appearance: cooperative, well kempt and well developed Orientation / Consciousness: awake, oriented to person, oriented to place and oriented to time HEENT normocephalic, head/scalp atraumatic and moist oral mucous membranes Eyes PERRL, EOMs intact bilaterally and conjunctivae normal Neck supple, no JVD, thyroid normal and no carotid bruits General: trachea midline Resp normal respiratory effort and clear to auscultation bilaterally Auscultation: Negative for rales, rhonchi or wheezes Cardio regular rate, regular rhythm, S1 normal heart sound, S2 normal heart sound, no murmurs, no rub and no gallops GI normal to inspection, nondistended, normoactive bowel sounds, soft to palpation, non-tender and non-distended Skin Skin Narrative: Patient's left lower leg was wrapped with surgical dressing, this was not removed for examination of the area Neuro oriented x3, CN's II-XII intact bilaterally, no focal motor deficits and no sensory deficits noted Sensorium / Orientation: awake and alert Speech: speech normal Psych affect normal Assessment & Plan Assessment/Plan (1) Type 2 diabetes mellitus with foot ulcer: QUALIFIERS: Diabetes mellitus intermodal dispatcher insulin use: with intermodal dispatcher use Qualified Code(s): E11.621 - Type 2 diabetes mellitus with foot ulcer; L97.509 - Non-pressure chronic ulcer of other part of unspecified foot with unspecified severity; Z79.4 - [facility] (current) use of insulin PLAN: Plan 1. Sepsis secondary to left lower extremity cellulitis/left heel abscess-patient will remain on her current antibiotic coverage per infectious diseases-Flagyl, Zyvox, and cefepime #2 left heel abscess-patient is being seen by podiatry and may require further surgery on the left foot 08/16/2024 #3 type 2 blzofytc-enhvckjujrzc-wwsqary's blood sugars will be monitored, sliding scale insulin will be administered #4 class III obesity-complicates care, management, recovery, and prognosis #5 Central hypertension-patient will remain on her current medications for blood pressure, blood pressure medications will be adjusted as needed Total clinical time spent by myself addressing the patient's medical issues, reviewing all of her data, and collaborating with the patient's care team: 35 minutes Charges/Coding Visit Charges Inpatient E&M: 20399 Subs Hosp L2
[2024-08-15 08:53] VITALS: BP 98/53; PULSE 70; RESP 16; TEMP 36.6; O2SAT 98
--- NOTE | 2024-08-15 09:12 | CASEMGMT ---
Social Work SW received referral from wound nurse that pt is requesting discharge to [facility]. SW met with pt to discuss discharge plan. Pt states she lives with her who is never home and with her father who is too elderly and disabled to provide any assistance. Pt feels she will need assistance with wound care and feels if she does not go to a SNF for wound care, infection will return. Pt states her preferred provider is [facility] and denies wish for SNF list when SW offered. DC reference assistant updated and to send referral to [facility]. Pt to have procedure tomorrow. Additional info to be sent to [facility] after this procedure. JUSTIN Pierce
--- NOTE | 2024-08-15 09:38 | CASEMGMT ---
Discharge Planning Referral sent to [facility]. Alicia Allen DC Planning Asst.
--- NOTE | 2024-08-15 10:01 | CASEMGMT ---
[facility] has accepted. Pt can admit when medically ready. Alicia Allen DC Planning Asst.
[2024-08-15] MEDS: Linezolid 600 MG Tablet PO ×2 (10:34→21:55)
[2024-08-15] MEDS: Loratadine 10 MG Tablet PO (10:34)
[2024-08-15] MEDS: Lactobacillis Acidophilus 1 CAP PO ×4 (10:34→21:49)
[2024-08-15] MEDS: Pregabalin 75 MG Capsule PO ×2 (10:34→21:55)
[2024-08-15] MEDS: Zinc Sulfate 50 mg zinc (220 mg) ORAL capsule PO (10:34)
[2024-08-15] MEDS: Ascorbic Acid 500 MG Tablet 1000 MG PO ×2 (10:34→17:05)
[2024-08-15] MEDS: Cholecalciferol (Vit D3) 125 MCG CAPSULE (5,000 UNITS) PO (10:34)
[2024-08-15] MEDS: Tolterodine Tartrate 4 MG CAP.SA PO (10:34)
[2024-08-15] MEDS: Pantoprazole Sodium 20 MG Tablet PO (10:34)
--- NOTE | 2024-08-15 10:51 | CASEMGMT ---
Social Work [facility] has accepted pt. SW notified pt and she is agreeable. Plan: [facility], when medically ready JUSTIN Pierce
[2024-08-15 11:47] LABS: Bedside Glucose 152 mg/dL (74-106)
[2024-08-15] MEDS: Insulin Lispro 100 UNIT/ML INSULN.PEN 12 UNIT SC (12:50)
[2024-08-15] MEDS: Insulin Lispro 100 UNIT/ML INSULN.PEN SC (12:50)
[2024-08-15 14:08] VITALS: BP 112/59; PULSE 74; RESP 16; TEMP 36.6; O2SAT 98
[2024-08-15 16:29] LABS: Bedside Glucose 96 mg/dL (74-106)
[2024-08-15 21:39] VITALS: BP 111/76; PULSE 78; RESP 16; TEMP 36.8; O2SAT 98
[2024-08-15] MEDS: 0.9% Normal Saline (100mL Bag) 100 ML 15 ML IV (21:43)
[2024-08-15] MEDS: Insulin Glargine-YFGN 100 UNIT/ML Pen 30 UNIT SC (21:47)
[2024-08-15] MEDS: Divalproex Sodium 250 MG Tablet 500 MG PO (21:49)
[2024-08-15] MEDS: Atorvastatin Calcium 80 MG Tablet PO (21:50)
[2024-08-15] MEDS: traZODone 100 MG Tablet PO (21:50)
[2024-08-15 22:56] LABS: Bedside Glucose 133 mg/dL (74-106)
[2024-08-16] VITALS (14 sets, daily range): BP systolic 98–131; BP diastolic 64–85; PULSE 68–89; RESP 14–20; TEMP 36.4–36.9; O2SAT 93–100; BMI 44.6
[2024-08-16 02:28] LABS: Bedside Glucose 160 mg/dL (74-106)
[2024-08-16] MEDS: metroNIDAZOLE 500 MG Tablet PO ×2 (04:14→14:45)
[2024-08-16] MEDS: Cefepime HCl 2 GM in 0.9% Normal Saline (100mL MB+) 100 ML IV ×2 (05:16→14:42)
[2024-08-16] MEDS: 0.9% Normal Saline (100mL Bag) 100 ML 15 ML IV (05:47)
--- NOTE | 2024-08-16 06:50 | PN.SURG_ITS ---
Subjective Subjective Patient was seen at bedside today following surgery of this morning. Patient was resting comfortably with no pain to left lower extremity. She denies any overnight events or constitutional symptoms at this time. No pain to left lower extremity. Dressing was on clean dry and intact. No other pedal complaints at this time. Objective Data Objective Data Vital Signs: Vital Signs Temp Pulse Resp BP Pulse Ox O2 Del Method O2 Flow Rate 98 F 70 16 98/64 96 Room Air 2 08/16/24 04:12 08/16/24 04:12 08/16/24 04:12 08/16/24 04:12 08/16/24 04:12 08/16/24 04:12 08/12/24 17:05 Oxygen Flow Rate (L/min) 2 Oxygen Delivery Method Room Air Weight: 107.2 kg Body Mass Index (BMI) 44.6 Intake & Output: Intake and Output for Last 24 Hours 08/14/24 08/15/24 08/16/24 23:59 23:59 23:59 Intake Total 2201 / 2201 1299.25 / 1299.25 188.75 / 188.75 Output Total 3750 / 3750 2150 / 2150 600 / 600 Balance -1549 / -1549 -850.75 / -850.75 -411.25 / -411.25 Lab / Micro Data 08/15/24 05:12 08/15/24 05:12 Labs: Laboratory Results - last 24 hr 08/15/24 05:12: Absolute Neuts (auto) 5.2, Absolute Lymphs (auto) 3.76, Total Counted 100, Neutrophils % (Manual) 50, Lymphocytes % (Manual) 36, Monocytes % (Manual) 9, Eosinophils % (Manual) 1, Metamyelocytes % 2 H, Myelocytes % 2 H, Diff Path Review May foll, Atypical Lymphocytes 2+ 08/15/24 11:30: POC Glucose 152 H 08/15/24 16:11: POC Glucose 96 08/15/24 21:41: POC Glucose 133 H 08/16/24 02:09: POC Glucose 160 H Micro: Microbiology 08/12/24 Unknown Tissue - Left Foot Gram Stain - Final 08/12/24 Unknown Tissue - Left Foot Wound Culture - Preliminary Staphylococcus aureus Streptococcus group A GPC Poss Enterococcus sp Gram positive sue 08/12/24 Unknown Tissue - Left Foot Anaerobic Culture - Final No anaerobic bacteria isolated. 08/12/24 Unknown Tissue - Left Foot Gram Stain - Final 08/12/24 Unknown Tissue - Left Foot Wound Culture - Preliminary Staphylococcus aureus Gram Positive Cocci 08/12/24 Unknown Tissue - Left Foot Anaerobic Culture - Final No anaerobic bacteria isolated. 08/11/24 22:19 Blood Culture (Wb) - Left Forearm Blood Culture - Preliminary No growth in 48 hours. 08/11/24 21:39 Blood Culture (Wb) - Anticubital Left Blood Culture - Preliminary No growth in 48 hours. 08/12/24 01:35 Nasal Secretion MRSA (PCR) - Final Physical Exam Narrative Neurovascular status is unchanged. Nonpitting edema appreciated to the distal and proximal aspect of the left lower extremity dressing. No pain to palpation over the open wound to the left heel. No pain with calf pressure. Const oriented x3 and no apparent distress Assessment & Plan Assessment/Plan (1) Non-pressure chronic ulcer of other part of left foot with necrosis of muscle: PLAN: Patient was examined and evaluated. All findings were discussed with the patient. All questions were answered to the patient satisfaction. Patient was seen at bedside today for surgical discussion with all risk and benefits discussed with the patient in great detail. Educated the patient on the surgical and postoperative plan which she was understanding of. The patient will be going to a SNF for continued rehab as well as to help lower her A1c. I educated the patient that I cannot move forward with the tendon transfer surgery that her left lower extremity needs if her A1c is above 9% which she will work to get that down as an outpatient. Plan for surgery today will be delayed primary closure of the full-thickness wound to the left heel. Patient understands risk and benefits. Culture: Prelavage: Staph aureus, gram-positive cocci Culture: Post lavage:Staph aureus, strep group A, GPC Enterococcus, gram- positive sue WBC: 23.4 -> 18.2 -> 10.5 Glu: 160 Medicine: On board, medical management Infectious disease: On board, IV antibiotics linezolid, cefepime, Flagyl Once the patient has completed her delayed primary closure to the left heel the patient can be cleared for discharge from podiatry perspective once cleared by medicine and infectious disease team. The patient will follow-up in private office for review of surgical site and dressing change in 1 week to 10 days. There will be no need for dressing changes until the first postoperative visit. The dressing can be left clean dry and intact. Dressing change orders will be given once the patient follows up in clinic. Please reach out to Dr. Gonzalez for any question or concerns. 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
--- NOTE | 2024-08-16 06:50 | PCM.OPRPT ---
Problems Associated Problem List Diagnoses (1) Non-pressure chronic ulcer of other part of left foot with necrosis of muscle: (2) Type 2 diabetes mellitus with foot ulcer: Operative Report (Standard) Operative Information Date of Procedure: 08/16/24 Pre-Operative Diagnosis: 1. Full-thickness wound to muscle, left heel 2. Diabetic ulcer, left heel Post-Operative Diagnosis: Same as preoperative diagnosis Surgery/Procedure Performed: Procedure #1: Delayed primary closure, left lower extremity field contact person: Yes Chief Innovation Officer: Mayra Lainez PGY2 Tasks completed by medical receptionist assistant: Closing Type of Anesthesia: General and Local RN Documented Start/Stop Times: Operation Date: 08/16/24 09:25 Case Time Into Pre-Op 08/16/24 08:24 Out of Pre-Op 08/16/24 10:15 Anesthesia Start 08/16/24 10:17 Into Room 08/16/24 10:17 Procedure Start 08/16/24 10:56 Procedure End 08/16/24 11:10 Anesthesia End 08/16/24 11:21 Out of Room 08/16/24 11:21 Procedure Start Time: 10:56 Procedure Stop Time: 11:10 Select all DRAINS/GRAFTS/IMPLANTS that apply: None Special Medications: Per anesthesia Estimated Blood Loss: 20 mL Fluids Replaced: Per anesthesia Specimen collected: No Description of surgery: Indications For Operation: Ms. Paiz is a 43-year-old diabetic female who was admitted to [facility] for left lower extremity abscess and cellulitis. Patient was initially seen at the emergency room department where she was placed on oral antibiotics and discharge however the patient showed evidence of worsening edema, erythema and drainage to the left heel. She represented back to emergency department and was admitted under medicine for podiatry and infectious disease consultation as well as podiatric surgical intervention. Since the patient has been admitted she has been managed by medicine as well as consultative with infectious disease who has been managing IV antibiotics. Podiatry was consulted for the abscess and was taken to the operating room to perform complex incision and drainage with pre and post lavage cultures. DOS: 08/12/2024. The patient's leukocytosis has stabilized since being in the hospital and on IV antibiotics. Today's procedure was a delayed primary closure to heal and closed the patient's left heel wound. Long discussion with the patient regarding the need to be nonweightbearing to the left foot as well as begin lowering her blood sugar levels and A1c to below 9%. The patient has evidence of a calcaneal gait and will need a FHL transfer and Achilles tendon repair to give her a more plantigrade foot to left lower extremity. Patient did show understanding of this. We did discuss surgical risk and benefits with the patient is understanding. Due to normalizing of the patient's leukocytosis and clearing of the patient's infection, it was deemed necessary at this time to take the patient back to the operating room to perform delayed primary closure to left heel wound to decrease the chance of reulceration and infection to the left heel. The nature of the problem, anticipated procedures, postop recovery/convalences and risk/complications include but not limited to infection, wound healing complications, digital amputation, hypertrophic scarring, numbness, tingling, chronic pain, CRPS, over and under correction, recurrence of deformity, DVT and or PE and the need for further surgery have been discussed in great detail with the patient. All questions have been answered to the patient's satisfaction. There are no guarantees given as to the outcome of the procedure. Description of Procedure: Under mild sedation, the patient was brought into the operating room and placed on the operating table in supine position. Once the patient was under general anesthesia with [place] mask airway, the left lower extremity was blocked using approximately 10 cc 0.5% Marcaine plain. No tourniquet was used for this case. Next, the left lower extremity was prepped and draped in normal aseptic manner. Next, a timeout was then undertaken verifying the correct patient, extremity, visibility of preoperative markings, availability of the equipment. Procedure #1: Delayed primary closure, left lower extremity Next, attention was directed to the full-thickness wound/incision to the left heel. There showed evidence of healthy granular tissue with open surgical wound from previous incision and drainage to the left heel. The area was flushed with copious normal saline. Continued continued blunt dissection with Metzenbaum scissors was continued to free up any remaining soft tissue that was nonviable. Sanguinous drainage was noted. There is no evidence of malodor or purulence appreciated. The area was flushed with copious normal saline. Using 3-0 Vicryl the deep layer was reapproximated closed in buried suture technique. The skin was reapproximated and closed with 2-0 nylon in a combination of horizontal mattress and simple interrupted suture technique. The left lower extremities were cleaned and patted dry. Procedure #2: Application of posterior splint, left lower extremity The incision was dressed with Betadine soaked Adaptic, dry sterile dressing and double or Ramos AO splint was donned to left lower extremity at 90 degrees. The patient tolerated the procedure and anesthesia well and apparent satisfactory condition and was transported to the PACU for further monitoring prior to discharge back to the floor. Vital signs stable and vascular status intact to all digits bilateral. Post Operative Plan: Weightbearing: Nonweightbearing to left lower extremity. Full weightbearing right lower extremity. Antibiotics: On the floor, linezolid, cefepime, Flagyl Morales: In place Dressing: Betadine soaked Adaptic, dry sterile dressing, double layer Ramos AO splint 90 degrees. Follow-up: Patient is cleared to discharge to the nursing home facility from a podiatry perspective, once cleared by infectious disease and medicine team. The patient will follow-up with Dr. Gonzalez on the outpatient setting for dressing changes. Goal of the patient, is to get her A1c below 9% so we can move forward with flexor hallucis longus tendon transfer, Achilles tendon debridement repair of the left lower extremity to give the patient a more plantigrade foot with help of a solid AFO to the left lower extremity. Thank you for letting me be involved in the patient care. Surgical Findings: Complete closure of the full-thickness wound left heel. Evidence of a calcaneal gait to the left lower extremity. Complications Complications: No Admit VTE Documentation VTE Present on Admission: No VTE Mechan Device Prophylaxis: SCD's VTE Pharm Prophylaxis ordered?: Yes
[2024-08-16 07:17] LABS: Bedside Glucose 125 mg/dL (74-106)
--- NOTE | 2024-08-16 08:42 | PCM.PRE.AN2 ---
ASA Classification* ASA Classification ASA Classification: 3 Assessment & Plan Anesthesia* Anesthesia Assessment Anesthesia Assessment: Discussed sedation and/or anesthesia options, risks, benefits, and alternatives with patient/parents/legal guardian/POA. Questions invited. The patient/parents/legal guardian/POA seems to understand and agrees to proceed with anesthesia plan. Reviewed the physical assessment, medical history, allergy history and patient home medications list prior to surgery/procedure/anesthetic and documented any changes. Performed airway and anesthesia risk assessments. Anesthesia Type Anesthesia Type: General History Source History Obtained from:: Patient and Chart Anesthesia Focused Assessment* Temperature: 97.7 F Pulse Rate: 68 Blood Pressure: 126/66 Respiratory Rate: 17 Pulse Ox: 97 Oxygen Delivery Method: Room Air Oxygen Flow Rate (L/min): 2 Airway Assessment Mouth opens: 2 cm Mallampati Score: III Teeth Condition: Chipped/Broken (poor dentition) and Missing Neck Range of motion (ROM): Limited ROM Focused Labs Anesthesia Preop lab: CBC WBC 10.5 K/mm3 (4.4-11.0) 08/15/24 05:12 08/15/24 RBC 3.64 M/mm3 (4.2-5.4) L 08/15/24 05:12 08/15/24 Hgb 10.9 g/dL (12.0-15.0) L 08/15/24 05:12 08/15/24 Hct 33.5 % (37-47) L 08/15/24 05:12 08/15/24 Plt Count 224 K/mm3 (150-450) 08/15/24 05:12 08/15/24 CHEMISTRY Potassium 3.8 mmol/L (3.3-5.1) 08/15/24 05:12 08/15/24 Sodium 138 mmol/L (133-145) 08/15/24 05:12 08/15/24 Magnesium 1.7 mg/dL (1.5-2.2) 08/11/24 21:39 08/11/24 Phosphorus 2.7 mg/dL (2.7-4.5) 08/13/24 06:43 08/13/24 BUN 17 mg/dL (4-19) 08/15/24 05:12 08/15/24 Creatinine 0.65 mg/dL (0.70-1.20) L 08/15/24 05:12 08/15/24 Glucose 135 mg/dL (70-99) H 08/15/24 05:12 08/15/24 POC Glucose 125 mg/dL (74-106) H 08/16/24 06:40 08/16/24 TSH 1.550 uIU/mL (0.300-4.200) 08/11/24 21:39 08/11/24 COAG PT 12.3 SECONDS (11.7-14.9) 07/11/24 17:40 07/11/24 HCG, Quant < 1 mIU/mL (<9 non-preg) 10/24/12 11:05 10/24/12 Urine Test Negative Negative 08/12/24 15:12 08/12/24 Pre-Assessment Diagnosis/Proposed Procedure Planned Operative Procedure(s): Irrigation and debridement washout of the left heel abscess. 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 When Was Last Pacemaker Check QUESTION #4 FULL TEXT: You/Your Family Experience fever (hyperthermia) with Anesthesia Last Oral Intake Last Oral intake: Last Oral Intake NPO since 00:00 08/16/24 07:55 Meds taken in AM with sips of No 08/16/24 07:55 water? Meds patient instructed to tylenol 1000 08/12/24 14:58 take am of surgery PONV PONV - auto painter helper: PONV - auto painter helper Female HX of Motion Sickness HX of N/V After Surgery Non-Smoker Duration of Surgery greater than 60 minutes Number of Risk Factors PONV Score Height & Weight Height & Weight: Anesthesia: Height & Weight Height 5 ft 1 in 08/16/24 07:55 Weight: 107.2 kg 08/16/24 07:55 Body Mass Index (BMI) 44.6 08/16/24 07:55 Respiratory Assessment Respiratory Assessment - auto painter helper: Respiratory Tract Infection Hx - auto painter helper Hx Respiratory Tract Infection No 08/12/24 14:58 STOP Sleep Apnea STOP Sleep Apnea - auto painter helper: STOP Sleep Apnea - auto painter helper Hx Hypertension Yes 08/13/24 15:47 Hx Sleep Apnea No 08/11/24 23:02 CPAP No 07/15/22 15:55 BIPAP No 07/13/22 04:51 Do you snore loudly (louder Yes 08/11/24 23:02 than talking or can be heard Do you often feel tired/ Yes 08/11/24 23:02 fatigued/ sleepy during daytime? Has anyone observed you stop Yes 08/11/24 23:02 breathing during sleep? STOP Results Positive 08/12/24 16:52 QUESTION #5 FULL TEXT : Do you snore loudly (louder than talking or can be heard through closed doors)? 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 Specify any problems Hx of Preganancy in last 3 No 08/11/24 23:02 Months Nurse Filling Out Transfusion JSNOW 08/11/24 23:02 & Questions: Date: 08/12/24 08/11/24 23:02 Time: 00:40 08/11/24 23:02 Patient unable to answer at this time (ie. confused, unrespo /Reproduction History /Reproductive History - auto painter helper: /Reproductive Hx- auto painter helper Hx Now No 08/12/24 14:58 Gestational Age (in weeks): EDC: Hx Hx Para Hx Section SAB No 08/12/24 14:58 Active Medications Active Medications: Current Medications Generic Name Dose Route Start Last Admin Trade Name Freq PRN Reason Stop Dose Admin Acetaminophen 650 mg 08/12/24 00:11 08/12/24 10:52 Acetaminophen 325 Mg Tablet PO 650 mg TID PRN PRN Administration Pain 1-5/10 or Fever Albuterol Sulfate 2.5 mg 08/12/24 00:11 Albuterol 2.5 Mg/3 Ml Vial.Neb. INHALATION Q2H PRN PRN SOB &/OR WHEEZING Ascorbic Acid 1,000 mg 08/12/24 08:00 08/16/24 07:29 Ascorbic Acid 500 Mg Tablet PO Not Given BIDCM DERIAN Atorvastatin Calcium 80 mg 08/12/24 22:00 08/15/24 21:50 Atorvastatin Calcium 80 Mg Tablet PO 80 mg 2200 DERIAN Administration Cholecalciferol 125 mcg 08/12/24 10:00 08/16/24 07:34 Cholecalciferol (Vit D3) 125 Mcg Capsule (5,000 Units) PO Not Given DAILY DERIAN Divalproex Sodium 500 mg 08/12/24 22:00 08/15/24 21:49 Divalproex Sodium 250 Mg Tablet PO 500 mg QHS DERIAN Administration Enoxaparin Sodium 40 mg 08/12/24 00:11 08/16/24 07:30 Enoxaparin 40 Mg/0.4 Ml Syringe SC Not Given BID DERIAN Glucagon 1 mg 08/12/24 00:11 Glucagon 1 Mg/Ml Syringe IM X1 PRN HYPOGLYCEMIA Protocol Sodium Chloride 100 mls @ 15 mls/hr 08/12/24 00:12 08/16/24 08:11 IV 0 mls/hr .Q6H40M PRN Infusion Saline Flush Sodium Chloride 100 mls @ 15 mls/hr 08/12/24 00:12 IV .Q6H40M PRN Additional IVPB Infusion Cefepime HCl 2 gm/ Sodium 100 mls @ 200 mls/hr 08/12/24 09:35 08/16/24 05:47 Chloride IV Infused Q8 DERIAN Infusion Insulin Glargine 30 unit 08/12/24 00:11 08/15/24 21:47 Insulin Glargine-Yfgn 100 Unit/Ml Pen SC 15 unit QHS DERIAN Administration Insulin Human Lispro 12 unit 08/12/24 08:00 08/16/24 07:27 Insulin Lispro 100 Unit/Ml Insuln.Pen SC Not Given TIDCM [facility] Insulin Human Lispro 0 unit 08/12/24 08:00 08/16/24 07:28 Insulin Lispro 100 Unit/Ml Insuln.Pen SC Not Given TIDCM [facility] Protocol Linezolid 600 mg 08/15/24 10:00 08/16/24 07:34 Linezolid 600 Mg Tablet PO Not Given BID [facility] Loratadine 10 mg 08/12/24 10:00 08/16/24 07:30 Loratadine 10 Mg Tablet PO Not Given DAILY [facility] Magnesium Hydroxide 30 ml 08/12/24 00:11 Magnesium Hydroxide 30 Ml Udc PO DAILY PRN PRN Constipation Melatonin 3 mg 08/12/24 00:11 Melatonin 3 Mg Tablet PO QHS PRN PRN INSOMNIA Metronidazole 500 mg 08/12/24 09:45 08/16/24 04:14 Metronidazole 500 Mg Tablet PO 500 mg TID [facility] Administration Morphine Sulfate 2 mg 08/12/24 00:11 08/13/24 09:19 Morphine 2 Mg/Ml Syringe IV 2 mg Q4H PRN PRN Administration Pain Score 6-10 Ondansetron HCl 4 mg 08/12/24 00:11 08/12/24 09:03 Ondansetron 4 Mg/2 Ml Vial IV 4 mg Q4H PRN PRN Administration NAUSEA/VOMITING Oxycodone HCl 5 mg 08/13/24 13:44 08/14/24 22:10 Oxycodone 5 Mg Tablet PO 5 mg Q4H PRN PRN Administration Pain Score 1-10 Pantoprazole Sodium 20 mg 08/12/24 10:00 08/16/24 07:31 Pantoprazole Sodium 20 Mg Tablet PO Not Given DAILY [facility] Pregabalin 75 mg 08/12/24 10:00 08/16/24 07:41 Pregabalin 75 Mg Capsule PO Not Given BID [facility] Sodium Chloride 10 - 40 ml 08/12/24 00:12 08/15/24 21:42 0.9% Saline Lock 10 Ml Syringe IV 10 ml UD PRN Administration SALINE FLUSH Tolterodine Tartrate 4 mg 08/12/24 10:00 08/16/24 07:30 Tolterodine Tartrate 4 Mg Cap.Sa PO Not Given DAILY [facility] Trazodone HCl 100 mg 08/12/24 22:00 08/15/24 21:50 Trazodone 100 Mg Tablet PO 100 mg QHS DERIAN Administration Zinc Sulfate 50 mg 08/12/24 00:11 08/16/24 07:34 Zinc Sulfate 50 Mg Zinc (220 Mg) Oral Capsule PO Not Given DAILY DERIAN PFSH Medical History Type 2 diabetes mellitus with foot ulcer Suprapubic catheter Noncompliance with diabetes treatment Diabetes mellitus with diabetic polyneuropathy Depression Open wound of left foot Microalbuminuria CKD (chronic kidney disease) 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 Diabetic polyneuropathy Non-smoker Weakness Hyperglycemia Sepsis Urinary tract infection Diabetic foot infection Urinary tract infection Thyroid cyst Hematochezia Chronic nausea Insomnia PSVT (paroxysmal supraventricular tachycardia) Panic attacks Hyperlipidemia Lipomeningocele History of kidney stones Essential hypertension Dysthymic disorder DJD (degenerative joint disease) of thoracic spine Arthritis Anxiety and depression Uninodular goiter Non-compliance UTI (urinary tract infection) Cellulitis of left lower extremity Infection of bladder catheter Ulcer of left heel and midfoot with fat layer exposed Lower extremity edema Delayed wound healing Type 2 diabetes mellitus with diabetic polyneuropathy Diabetic ulcer of left heel with fat layer exposed Normochromic normocytic anemia Constipation Neurogenic bowel Neurogenic bladder Hydronephrosis of right kidney UTI (urinary tract infection) Diabetes mellitus, type II Morbid obesity with BMI of 40.0-44.9, adult Spina bifida aperta of lumbar spine History of migraine Chronic back pain Home Medications ?Medication ?Instructions ?Recorded ?Last Taken ?Type furosemide 20 mg tablet 20 mg PO 2200 fluid 08/28/18 08/10/24 History furosemide 40 mg tablet 40 mg PO BREAKFAST fluid 04/05/19 08/10/24 History oxybutynin chloride 15 mg 15 mg PO DAILY bladder 11/12/19 08/10/24 History tablet,extended release 24 hr acetaminophen 500 mg tablet 1,000 mg PO TID PRN PRN Pain Or 02/12/20 08/11/24 History Fever trazodone 100 mg tablet 100 mg PO QHS sleep 01/19/21 08/10/24 History atorvastatin 80 mg tablet 80 mg PO DAILY cholesterol 01/29/21 08/10/24 History pen needle, diabetic 32 gauge x #400 ea 03/05/21 Unknown Rx (BD Ultra-Fine [place] Pen Needle) lisinopril 5 mg tablet 2.5 mg (1/2 x 5 mg) PO DAILY #90 01/21/22 08/10/24 Rx tabs pen needle, diabetic 32 gauge x #350 ea 09/01/22 Unknown Rx (BD Ultra-Fine [place] Pen Needle) loratadine 10 mg tablet (Allergy 10 mg PO DAILY Antigistamine 11/07/23 08/10/24 History Relief (loratadine)) propranolol 20 mg tablet 20 mg PO BID Beta Pan 11/07/23 08/10/24 History insulin aspart See Rx Instructions subcut TID 02/10/24 08/10/24 History (niacinamide)(U-100) 100 unit/mL(3 Glucose control mL) subcutaneous pen (Fiasp FlexTouch U-100 Insulin) pregabalin 75 mg capsule 75 mg PO BID Diabetic nerve pain 02/10/24 08/10/24 History ondansetron 4 mg disintegrating 4 mg PO Q8H PRN PRN Nausea #20 tabs 06/09/24 08/11/24 Rx tablet promethazine 25 mg tablet 25 mg PO TID PRN nausea and 07/31/24 08/01/24 Rx vomiting #20 tabs divalproex 500 mg tablet,delayed 500 mg PO QHS Migraine Headaches 08/11/24 08/10/24 History release insulin glargine 100 unit/mL (3 40 unit subcut QHS dm 08/11/24 08/10/24 History mL) subcutaneous pen (Lantus Solostar U-100 Insulin) omeprazole 20 mg capsule,delayed 20 mg PO DAILY PPI 08/11/24 08/10/24 History release Allergy/AdvReac Type Severity Reaction Status Date / Time Cephalosporins Allergy Severe Anaphylaxis Verified 08/12/24 00:44 piperacillin (From Zosyn) Allergy Intermediate Hives Verified 08/12/24 00:44 ceftriaxone (From Rocephin) Allergy Anaphylaxis Verified 08/12/24 00:44 mushroom Allergy Anaphylaxis Verified 08/12/24 00:44 peanut Allergy Anaphylaxis Verified 08/12/24 00:44 tazobactam (From Zosyn) Allergy NEEDS Verified 08/12/24 00:44 FOLLOW-UP fentanyl AdvReac Low blood Verified 08/12/24 00:44 pressure gabapentin AdvReac Other Verified 08/12/24 00:44 Gadolinium-MRI Contrast AdvReac Vomiting Verified 08/12/24 00:44 Medium Latex, Natural Rubber AdvReac Rash Verified 08/12/24 00:44 vancomycin AdvReac Rash Verified 08/12/24 00:44 Family History Mother CVA (cerebral vascular accident) Thyroid disorder Diabetes Hypertension Heart disease Hyperlipidemia Myocardial infarction, Onset Age: 54 mother had diabetes Father Cancer skin Grandmother Cancer liver Other Arthritis Skin cancer Surgical History S/P colostomy S/P thyroid biopsy (~11/06/19) history insertion suprapubic catheter Status post gastric surgery Hx of foot surgery Hx of ventral hernia repair History of spinal surgery History of cholecystectomy History of dilation and curettage Social History household members: significant other Smoking Status: Never smoker alcohol intake: current substance use type: does not use Review of Systems (Anesthesia) ROS Narrative System reviewed and no additional complaints, except as documented.
--- NOTE | 2024-08-16 10:21 | PCM.HOSP.N ---
Hospitalist Note I talked to infectious diseases today, they stated that the patient could go to the [facility] today after her surgery, she would need to continue Zyvox 600 mg twice daily for 1 week and Flagyl 500 mg 3 times daily for 1 week.
[2024-08-16] MEDS: Bupivacaine 0.5% PF 10 ML VIAL (10:46)
--- NOTE | 2024-08-16 11:25 | PCM.POST.ANE ---
Anesthesia: Postop Eval I Current Vital Signs Temperature: 97.6 F Pulse Rate: 86 Blood Pressure: 131/71 Respiratory Rate: 20 Pulse Ox: 93 Oxygen Delivery Method: Room Air Assessment Airway patent: Yes Spontaneous unlabored respirations: Yes Mental status: Awake and Calm nausea: No Vomiting: No Anesthesia Complication: No Fluid Hydration Crystalloid volume administer (ml): 700 Total IV fluid infused: 700 Progress Note Anesthesia document: Postop Eval 1 completed: Yes
[2024-08-16 12:12] LABS: Bedside Glucose 134 mg/dL (74-106)
--- NOTE | 2024-08-16 12:23 | NURSING ---
Back to room at this time. Pt sleeping, snoring. no distress.
[2024-08-16 13:05] LABS: Bedside Glucose 156 mg/dL (74-106)
[2024-08-16] MEDS: Lactobacillis Acidophilus 1 CAP PO ×2 (14:42→17:07)
--- NOTE | 2024-08-16 14:43 | TREXTCAR_ITS ---
Diet Diet Order/Speech Therapy: 08/16/24 12:27 Diet: Carbohydrate Controlled Dietary Modifications:: Consistent Carbohydrate Type of Dietary Supplement:: Ty Diet Comments: Patient does not receive oral diet while on insulin infusion Routine Orders/Code Status Code Status: Full Code DC O2, CPAP, BIPAP needs Home O2 Discharge instructions: No Wound(s) LEFT LOWER LEG: Wound Type: Surgical Incision Left Heel: Wound Type: neuropathic wound s/p I&D Dressing Change: betadine gauze Therapies Weight Bearing: Non weight bearing (left foot) Physical Therapy: Eval and Treat Occupational Therapy: Eval and Treat Problem/Diagnosis (1) Non-pressure chronic ulcer of other part of left foot with necrosis of muscle: Status: Chronic Code(s): L97.523 - Non-pressure chronic ulcer of other part of left foot with necrosis of muscle (2) Type 2 diabetes mellitus with foot ulcer: Status: Acute Code(s): E11.621 - Type 2 diabetes mellitus with foot ulcer; L97.509 - Non-pressure chronic ulcer of other part of unspecified foot with unspecified severity (3) Cutaneous abscess of left foot: Status: Acute Code(s): L02.612 - Cutaneous abscess of left foot Plan 1. Sepsis secondary to left lower extremity cellulitis/left heel abscess- patient will remain on her current antibiotic coverage per infectious diseases- Flagyl, Zyvox #2 left heel abscess-patient is being seen by podiatry and may require further surgery on the left foot 08/16/2024 #3 type 2 hpmimohn-rhnhygxpzwpr-xgcbsxc's blood sugars will be monitored, sliding scale insulin will be administered #4 class III obesity-complicates care, management, recovery, and prognosis #5 Central hypertension-patient will remain on her current medications for blood pressure, blood pressure medications will be adjusted as needed Total clinical time spent by myself addressing the patient's medical issues, reviewing all of her data, and collaborating with the patient's care team: 35 minutes Allergies/Procedures Done in Hospital Allergies Cephalosporins Allergy (Severe, Verified 08/12/24 00:44) Anaphylaxis piperacillin (From Zosyn) Allergy (Intermediate, Verified 08/12/24 00:44) Hives Hives and itching ceftriaxone (From Rocephin) Allergy (Verified 08/12/24 00:44) Anaphylaxis mushroom Allergy (Verified 08/12/24 00:44) Anaphylaxis peanut Allergy (Verified 08/12/24 00:44) Anaphylaxis tazobactam (From Zosyn) Allergy (Verified 08/12/24 00:44) NEEDS FOLLOW-UP fentanyl Adverse Reaction (Verified 08/12/24 00:44) Low blood pressure decreased breathing was on a vent gabapentin Adverse Reaction (Verified 08/12/24 00:44) Other 'psychotic rage' Gadolinium-MRI Contrast Medium Adverse Reaction (Verified 08/12/24 00:44) Vomiting Latex, Natural Rubber Adverse Reaction (Verified 08/12/24 00:44) Rash vancomycin Adverse Reaction (Verified 08/12/24 00:44) Rash RED MAN SYNDROME Procedures: - (Complex incision and drainage left foot-08/12/2024) Type of Care/Length of Stay Estimated LOS: Convalescent Care Less Than 30 days Type of Care Needed: Skilled Rehab Potential: Good Prognosis: Good Additional Orders/Day of Discharge H&P will serve as current which was dated: 08/11/24 Day of Discharge: 08/16/24 Dietary and Speech Recommendations Dietitian Recommendations/Changes: Continue Consistent CHO/ Cardiac to help manage pt medical conditions Discharge Plan Admission Admit Date/Time: 08/11/24 22:51 Primary Reason for Your Visit: Abscess left heel Attending Provider: Jhony Boyer Primary Care Provider: Will Shukla Consulting Providers: Chance Rose; Alpesh Alex; Garcia Gonzalez Discharge Orders/Prescriptions Prescriptions: New cholecalciferol (vitamin D3) 125 mcg (5,000 unit) Capsule 125 mcg PO DAILY Qty: 0 0RF enoxaparin 40 mg/0.4 mL Syringe 40 mg subcut BID Qty: 0 0RF insulin lispro [Humalog KwikPen Insulin] 100 unit/mL Insulin Pen 12 unit subcut TIDCM Qty: 0 0RF insulin lispro [Humalog KwikPen Insulin] 100 unit/mL Insulin Pen See Protocol subcut TIDCM Qty: 0 0RF Protocol: 3. Sliding Scale Insulin Med Dosing Condition: 150-189 mg/dl = 1 unit Condition: 190-229 mg/dl = 2 units Condition: 230-269 mg/dl = 3 units Condition: 270-309 mg/dl = 4 units Condition: 310-349 mg/dl = 5 units Condition: 350-399 mg/dl = 6 units Condition: 400-449 mg/dl = 7 units Condition: Greater than 449 call physician Protocol Text: Suggested for: - Patients on Total Daily Insulin Dose of 37-55 units - Obese, infected, or steroid patients MEDIUM DOSING ALGORITHIM insulin glargine-yfgn 100 unit/mL (3 mL) Insulin Pen 30 unit subcut QHS Qty: 1 0RF metronidazole 500 mg Tablet 500 mg PO TID Qty: 22 0RF Rx Instructions: Give 22 doses starting the evening of 08/16/2024 linezolid 600 mg Tablet 600 mg PO BID Qty: 0 0RF Rx Instructions: Give 15 doses starting the evening of 08/16/2024 oxycodone 5 mg Tablet 5 mg PO Q4H PRN PRN (Reason: Pain Score 1-10) 3 Days Qty: 10 0RF pregabalin 75 mg Capsule 75 mg PO BID Qty: 6 0RF Continued atorvastatin 80 mg tablet 80 mg PO DAILY Patient Comments: Take 1 tablet by mouth once daily. (DME) pen needle, diabetic [BD Ultra-Fine Hope Pen Needle] 32 gauge x 5/32 needle See Rx Instructions .ROUTE .MEDSUPPLY Qty: 400 6RF Rx Instructions: 4x/day (DME) pen needle, diabetic [BD Ultra-Fine Hope Pen Needle] 32 gauge x 5/32 needle See Rx Instructions .ROUTE .MEDSUPPLY Qty: 350 1RF Rx Instructions: 4 times daily furosemide 20 MG tablet 20 mg PO 2200 Rx Instructions: 20 mg in the evening furosemide 40 MG tablet 40 mg PO BREAKFAST oxybutynin chloride 15 mg tablet extended release 24hr 15 mg PO DAILY acetaminophen 500 MG tablet 1,000 mg PO TID PRN PRN (Reason: Pain Or Fever) trazodone 100 mg tablet 100 mg PO QHS Patient Comments: Take 1 tablet by mouth daily at bedtime. lisinopril 5 mg tablet 2.5 mg PO DAILY Qty: 90 3RF Rx Instructions: Hold for SBP less than 130 mmHg ondansetron 4 mg tablet,disintegrating 4 mg PO Q8H PRN PRN (Reason: Nausea) Qty: 20 0RF promethazine 25 mg tablet 25 mg PO TID PRN (Reason: nausea and vomiting) Qty: 20 0RF divalproex 500 mg tablet,delayed release (DR/EC) 500 mg PO QHS omeprazole 20 mg capsule,delayed release(DR/EC) 20 mg PO DAILY propranolol 20 mg tablet 20 mg PO BID loratadine [Allergy Relief (loratadine)] 10 mg tablet 10 mg PO DAILY Discontinued insulin glargine [Lantus Solostar U-100 Insulin] 100 unit/mL (3 mL) insulin pen 40 unit SC QHS pregabalin 75 mg capsule 75 mg PO BID Fiasp FlexTouch U-100 Insulin 100 unit/mL (3 mL) insulin pen See Rx Instructions subcut TID Rx Instructions: Inject 20 units with meals (three times daily) PLUS SS#2 (2 units for every 50 over 150 PRE MEAL blood sugar) TDD90 units daily Referrals / Follow Up: Will Shukla MD [Primary Care Provider] - Garcia Gonzalez DPM [Med Staff - Active Staff] - In 1 Week (Call office for appointment) Disposition Disposition (needs filled in before D/C Order can be placed): Intermediate Facility (2) Type 2 diabetes mellitus with foot ulcer Qualifiers: Diabetes mellitus longterm insulin use: with intermediate project manager use Qualified Code(s): E11.621 - Type 2 diabetes mellitus with foot ulcer; L97.509 - Non- pressure chronic ulcer of other part of unspecified foot with unspecified s everity; Z79.4 - long term care social worker (current) use of insulin
[2024-08-16] MEDS: Pantoprazole Sodium 20 MG Tablet PO (14:45)
[2024-08-16] MEDS: Ascorbic Acid 500 MG Tablet 1000 MG PO (14:46)
[2024-08-16] MEDS: Zinc Sulfate 50 mg zinc (220 mg) ORAL capsule PO (14:46)
[2024-08-16] MEDS: Cholecalciferol (Vit D3) 125 MCG CAPSULE (5,000 UNITS) PO (14:46)
[2024-08-16] MEDS: Tolterodine Tartrate 4 MG CAP.SA PO (14:47)
[2024-08-16] MEDS: oxyCODONE 5 MG Tablet PO (14:51)
[2024-08-16] MEDS: Acetaminophen 325 MG Tablet 650 MG PO (14:51)
--- NOTE | 2024-08-16 14:57 | PCM.DC.SUM ---
Providers Date of Admission: 08/11/24 Date of Discharge: 08/16/24 Primary Care Physician: Dr. iWll Shukla MD Consultations 08/12/24 00:52 Consult: Podiatry Routine Consulting Provider: Garcia Gonzalez Reason for Consult: Left heel abscess, LLE cellulitis and sepsis and diabetic. EMERGENT Consult: No Notified: Yes Date Notified: 08/12/24 Time Notified: 07:43 Method of Notification: Text Comments:: Dr Miramontes not concrete conveyor operator, Dr Gonzalez on. 08/12/24 08:37 Consult: Infectious Disease Routine Consulting Provider: Alpesh Alex Reason for Consult: cellulitis EMERGENT Consult: No MD Notified: Yes Date Notified: 08/12/24 Time Notified: 08:37 Method of Notification: Verbal 08/13/24 10:30 Consult: Onc/Wound/mottle lay up operator Routine Comment: Reason for Consult:: left heel Reason For Visit: SEPSIS DUE TO LLE CELLULITIS AFTER FAILURE Diagnosis Discharge Diagnosis (1) Non-pressure chronic ulcer of other part of left foot with necrosis of muscle: Status: Chronic Code(s): L97.523 - Non-pressure chronic ulcer of other part of left foot with necrosis of muscle (2) Type 2 diabetes mellitus with foot ulcer: Status: Acute Code(s): E11.621 - Type 2 diabetes mellitus with foot ulcer; L97.509 - Non-pressure chronic ulcer of other part of unspecified foot with unspecified severity Qualifiers: Diabetes mellitus detention insulin use: with technician terminal and repeater use Qualified Code(s): E11.621 - Type 2 diabetes mellitus with foot ulcer; L97.509 - Non-pressure chronic ulcer of other part of unspecified foot with unspecified severity; Z79.4 - prison (current) use of insulin (3) Cutaneous abscess of left foot: Status: Acute Code(s): L02.612 - Cutaneous abscess of left foot Plan 1. Sepsis secondary to left lower extremity cellulitis/left heel abscess with methicillin sensitive Staph aureus, Streptococcus group A, Enterococcus faecalis, and corynebacterium amycolatum-patient will remain on her current antibiotic coverage per infectious diseases-Flagyl, Zyvox #2 left heel abscess-patient is being seen by podiatry and may require further surgery on the left foot 08/16/2024 #3 type 2 digcriby-wxemuguyqrwu-pivgktr's blood sugars will be monitored, sliding scale insulin will be administered #4 class III obesity-complicates care, management, recovery, and prognosis #5 Essential hypertension-patient will remain on her current medications for blood pressure, blood pressure medications will be adjusted as needed #6 hyponatremia Total clinical time spent by myself addressing the patient's medical issues, reviewing all of her data, and collaborating with the patient's care team: 35 minutes Medications at Discharge Home Medications furosemide 20 mg tablet 20 mg PO 2200 fluid 08/28/18 furosemide 40 mg tablet 40 mg PO BREAKFAST fluid 04/05/19 oxybutynin chloride 15 mg tablet,extended release 24 hr 15 mg PO DAILY bladder 11/12/19 acetaminophen 500 mg tablet 1,000 mg PO TID PRN PRN Pain Or Fever 02/12/20 trazodone 100 mg tablet 100 mg PO QHS sleep 01/19/21 atorvastatin 80 mg tablet 80 mg PO DAILY cholesterol 01/29/21 pen needle, diabetic 32 gauge x 5/32 (BD Ultra-Fine Hope Pen Needle) #400 ea 03/05/21 lisinopril 5 mg tablet 2.5 mg (1/2 x 5 mg) PO DAILY #90 tabs 01/21/22 pen needle, diabetic 32 gauge x 5/32 (BD Ultra-Fine Hope Pen Needle) #350 ea 09/01/22 loratadine 10 mg tablet (Allergy Relief (loratadine)) 10 mg PO DAILY Antigistamine 11/07/23 propranolol 20 mg tablet 20 mg PO BID Beta Pan 11/07/23 ondansetron 4 mg disintegrating tablet 4 mg PO Q8H PRN PRN Nausea #20 tabs 06/09/24 promethazine 25 mg tablet 25 mg PO TID PRN nausea and vomiting #20 tabs 07/31/24 divalproex 500 mg tablet,delayed release 500 mg PO QHS Migraine Headaches 08/11/24 omeprazole 20 mg capsule,delayed release 20 mg PO DAILY PPI 08/11/24 cholecalciferol (vitamin D3) 125 mcg (5,000 unit) capsule 125 mcg PO DAILY #0 caps 08/16/24 enoxaparin 40 mg/0.4 mL subcutaneous syringe 40 mg (0.4 mL) subcut BID #0 mL 08/16/24 insulin glargine-yfgn 100 unit/mL (3 mL) subcutaneous pen 30 unit (0.3 mL) subcut QHS #1 mL 08/16/24 insulin lispro 100 unit/mL subcutaneous pen (Humalog KwikPen (U-100) Insulin) 12 unit (0.12 mL) subcut TIDCM #0 mL 08/16/24 insulin lispro 100 unit/mL subcutaneous pen (Humalog KwikPen (U-100) Insulin) See Protocol subcut TIDCM #0 mL 08/16/24 linezolid 600 mg tablet 600 mg PO BID #0 tabs 08/16/24 metronidazole 500 mg tablet 500 mg PO TID #22 tabs 08/16/24 oxycodone 5 mg tablet 5 mg PO Q4H PRN PRN Pain Score 1-10 3 days #10 tabs 08/16/24 pregabalin 75 mg capsule 75 mg PO BID #6 caps 08/16/24 Hospital Course Operations - (Complex incision and drainage left foot) Procedures None Summary of Care Provided Minutes Spent on Discharge: 32 Hospital Course: This 43-year-old white female was seen in the emergency room at [facility] with complaints of left lower extremity redness and pain, patient was on Bactrim twice daily for 10 days as an outpatient and stated that her symptoms improved but despite this the patient did not really feel well and noticed her left leg below the knee down to her foot was red and swollen. She developed a fever at home of 104.4. CBC showed a white blood cell count of 25.7, sodium was low at 127, glucose was 294. Patient was admitted to PCU for cellulitis of the left leg and foot with sepsis, IV antibiotics for administered and she was seen and consultation by podiatry. MRI of the left foot was obtained and it showed evidence of plantar and posterior ulcer over the left heel with subcutaneous fluid collection, there is no evidence of bone destruction or osteomyelitis. Patient was taken to surgery for drainage of the abscess on her left heel, there were no complications from the surgery, she was seen in consultation by infectious diseases and antibiotic coverage was adjusted. Patient was seen by PT and OT, she desired placement in a fpc facility for short-term rehab services and was accepted at [facility]. On 08/16/2024, patient was seen and examined:alert, oriented x3 and no apparent distress Constitutional Narrative: Patient appears older than her stated age, she has class III obesity General Appearance: cooperative, well kempt and well developed Orientation / Consciousness: awake, oriented to person, oriented to place and oriented to time HEENT normocephalic, head/scalp atraumatic and moist oral mucous membranes Eyes PERRL, EOMs intact bilaterally and conjunctivae normal Neck supple, no JVD, thyroid normal and no carotid bruits General: trachea midline Resp normal respiratory effort and clear to auscultation bilaterally Auscultation: Negative for rales, rhonchi or wheezes Cardio regular rate, regular rhythm, S1 normal heart sound, S2 normal heart sound, no murmurs, no rub and no gallops GI normal to inspection, nondistended, normoactive bowel sounds, soft to palpation, non-tender and non-distended Skin Skin Narrative: Patient's left lower leg was wrapped with surgical dressing, this was not removed for examination of the area Neuro oriented x3, CN's II-XII intact bilaterally, no focal motor deficits and no sensory deficits noted Sensorium / Orientation: awake and alert Speech: speech normal Psych affect normal Patient appears stable for discharge to fpc facility on 08/16/2024 Weight / BMI Weight Weight: 107.2 kg Body Mass Index (BMI) 44.6 ABG / Lab / Microbiology Data 08/15/24 05:12 08/15/24 05:12 Laboratory: Laboratory Results - last 24 hr 08/16/24 17:04: POC Glucose 385 H Microbiology: Microbiology 08/12/24 Unknown Tissue - Left Foot Gram Stain - Final 08/12/24 Unknown Tissue - Left Foot Wound Culture - Preliminary Staphylococcus aureus Gram positive sue Enterococcus faecalis 08/12/24 Unknown Tissue - Left Foot Anaerobic Culture - Final No anaerobic bacteria isolated. 08/11/24 22:19 Blood Culture (Wb) - Left Forearm Blood Culture - Final No growth in 5 days. 08/11/24 21:39 Blood Culture (Wb) - Anticubital Left Blood Culture - Final No growth in 5 days. 08/12/24 Unknown Tissue - Left Foot Gram Stain - Final 08/12/24 Unknown Tissue - Left Foot Wound Culture - Final Staphylococcus aureus Streptococcus group A Enterococcus faecalis Corynebacterium amycolatum 08/12/24 Unknown Tissue - Left Foot Anaerobic Culture - Final No anaerobic bacteria isolated. 08/12/24 01:35 Nasal Secretion MRSA (PCR) - Final D/C Instructions DC O2, CPAP, BIPAP Needs Home O2 Discharge instructions: No Meaningful Use Info Meaningful Use Meaningful Use Diagnoses (Choose all that apply): None applicable Ischemic Stroke Statin Dosing Therapy Reference: STATIN DOSE THERAPY REFERENCE: * Patients > 75 years receive moderate or high dose statin therapy. * Patients 75 years or YOUNGER should receive HIGH intensity statin dose unless contraindicated. You will be required to document reason for non-treatment if statin daily dose does not meet guidelines. HIGH DOSE STATIN THERAPY DAILY Atorvastatin > than or = to 40 mg Rosuvastatin > than or = to 20 mg Amlodipine + Atorvastatin > than or = to 2.5/40 mg Ezetimibe + Simvastatin 10/80 mg Simvastatin 80mg Discharge Plan Admission Admit Date/Time: 08/11/24 22:51 Primary Reason for Your Visit: Abscess left heel Attending Provider: Jhony Boyer Primary Care Provider: Will Shukla Consulting Providers: Chance Rose; Alpesh Alex; Garcia Gonzalez Discharge Orders/Prescriptions Prescriptions: New cholecalciferol (vitamin D3) 125 mcg (5,000 unit) Capsule 125 mcg PO DAILY Qty: 0 0RF enoxaparin 40 mg/0.4 mL Syringe 40 mg subcut BID Qty: 0 0RF insulin lispro [Humalog KwikPen Insulin] 100 unit/mL Insulin Pen 12 unit subcut TIDCM Qty: 0 0RF insulin lispro [Humalog KwikPen Insulin] 100 unit/mL Insulin Pen See Protocol subcut TIDCM Qty: 0 0RF Protocol: 3. Sliding Scale Insulin Med Dosing Condition: 150-189 mg/dl = 1 unit Condition: 190-229 mg/dl = 2 units Condition: 230-269 mg/dl = 3 units Condition: 270-309 mg/dl = 4 units Condition: 310-349 mg/dl = 5 units Condition: 350-399 mg/dl = 6 units Condition: 400-449 mg/dl = 7 units Condition: Greater than 449 call physician Protocol Text: Suggested for: - Patients on Total Daily Insulin Dose of 37-55 units - Obese, infected, or steroid patients MEDIUM DOSING ALGORITHIM insulin glargine-yfgn 100 unit/mL (3 mL) Insulin Pen 30 unit subcut QHS Qty: 1 0RF metronidazole 500 mg Tablet 500 mg PO TID Qty: 22 0RF Rx Instructions: Give 22 doses starting the evening of 08/16/2024 linezolid 600 mg Tablet 600 mg PO BID Qty: 0 0RF Rx Instructions: Give 15 doses starting the evening of 08/16/2024 oxycodone 5 mg Tablet 5 mg PO Q4H PRN PRN (Reason: Pain Score 1-10) 3 Days Qty: 10 0RF pregabalin 75 mg Capsule 75 mg PO BID Qty: 6 0RF Continued atorvastatin 80 mg tablet 80 mg PO DAILY Patient Comments: Take 1 tablet by mouth once daily. (DME) pen needle, diabetic [BD Ultra-Fine Hope Pen Needle] 32 gauge x 5/32 needle See Rx Instructions .ROUTE .MEDSUPPLY Qty: 400 6RF Rx Instructions: 4x/day (DME) pen needle, diabetic [BD Ultra-Fine Hope Pen Needle] 32 gauge x 5/32 needle See Rx Instructions .ROUTE .MEDSUPPLY Qty: 350 1RF Rx Instructions: 4 times daily furosemide 20 MG tablet 20 mg PO 2200 Rx Instructions: 20 mg in the evening furosemide 40 MG tablet 40 mg PO BREAKFAST oxybutynin chloride 15 mg tablet extended release 24hr 15 mg PO DAILY acetaminophen 500 MG tablet 1,000 mg PO TID PRN PRN (Reason: Pain Or Fever) trazodone 100 mg tablet 100 mg PO QHS Patient Comments: Take 1 tablet by mouth daily at bedtime. lisinopril 5 mg tablet 2.5 mg PO DAILY Qty: 90 3RF Rx Instructions: Hold for SBP less than 130 mmHg ondansetron 4 mg tablet,disintegrating 4 mg PO Q8H PRN PRN (Reason: Nausea) Qty: 20 0RF promethazine 25 mg tablet 25 mg PO TID PRN (Reason: nausea and vomiting) Qty: 20 0RF divalproex 500 mg tablet,delayed release (DR/EC) 500 mg PO QHS omeprazole 20 mg capsule,delayed release(DR/EC) 20 mg PO DAILY propranolol 20 mg tablet 20 mg PO BID loratadine [Allergy Relief (loratadine)] 10 mg tablet 10 mg PO DAILY Discontinued insulin glargine [Lantus Solostar U-100 Insulin] 100 unit/mL (3 mL) insulin pen 40 unit SC QHS pregabalin 75 mg capsule 75 mg PO BID Fiasp FlexTouch U-100 Insulin 100 unit/mL (3 mL) insulin pen See Rx Instructions subcut TID Rx Instructions: Inject 20 units with meals (three times daily) PLUS SS#2 (2 units for every 50 over 150 PRE MEAL blood sugar) TDD90 units daily Referrals / Follow Up: Will Shukla MD [Primary Care Provider] - Garcia Gonzalez DPM [Med Staff - Active Staff] - In 1 Week (Call office for appointment) Disposition Disposition (needs filled in before D/C Order can be placed): Alf Facility Charges/Coding Visit Charges Inpatient E&M: 83237 Disch Hosp >30min
--- NOTE | 2024-08-16 15:12 | CASEMGMT ---
Social Work Per physician, pt is ready for discharge to [facility] today. 7000 exemption form completed in [facility]. [place] health information assistant notified and to complete discharge. Disposition: [facility], skilled level of care under convalescent stay JUSTIN Pierce
--- NOTE | 2024-08-16 15:16 | CASEMGMT ---
Discharge Planning Discharge orders, signed med list, and transport time sent to [facility]. Physicians will transport pt by wheelchair at 6:30p. Nursing, SW, and pt updated. Pt will update her . Alicia Allen DC Planning Asst.
[2024-08-16] MEDS: Insulin Lispro 100 UNIT/ML INSULN.PEN 12 UNIT SC (17:04)
[2024-08-16] MEDS: Insulin Lispro 100 UNIT/ML INSULN.PEN SC (17:05)
[2024-08-16 17:34] LABS: Bedside Glucose 385 mg/dL (74-106)
--- NOTE | 2024-08-16 17:44 | NURSING ---
Report given to Denise at [facility] at this time.
== END 2024-08-16 18:37 | disposition skilled nursing facility (03) | DRG 872 ==
LOC: ED 22:05 → MS3 23:06 → PCU 23:23 → MS3 23:24 → PCU 08-12 02:45 → MS3 08-14 17:25
PROVIDERS: Anesthesiology; Internal Medicine Infectious Disease; Podiatrist Foot & Ankle Surgery; Admitting Provider Internal Medicine; Emergency Provider Emergency Medicine; PCP Family Medicine; Visit Provider Internal Medicine
PROC: 0Y9N0ZZ Drainage of Left Foot, Open Approach (ICD-10-PCS; principal; 2024-08-12 09:50)
PROC: 0HQLXZZ Repair Left Lower Leg Skin, External Approach (ICD-10-PCS; principal; 2024-08-16 09:15)
DX: A41.9 Sepsis, unspecified organism (principal); L02.612 Cutaneous abscess of left foot; L03.116 Cellulitis of left lower limb; Z68.41 Body mass index [BMI] 40.0-44.9, adult; N30.00 Acute cystitis without hematuria; L97.523 Non-pressure chronic ulcer of other part of left foot with necrosis of muscle; E11.22 Type 2 diabetes mellitus with diabetic chronic kidney disease; E11.42 Type 2 diabetes mellitus with diabetic polyneuropathy; E11.621 Type 2 diabetes mellitus with foot ulcer; I12.9 Hypertensive chronic kidney disease with stage 1 through stage 4 chronic kidney disease, or unspecified chronic kidney disease; N18.9 Chronic kidney disease, unspecified; Q05.6 Thoracic spina bifida without hydrocephalus; Z93.3 Colostomy status; E11.65 Type 2 diabetes mellitus with hyperglycemia; E66.01 Morbid (severe) obesity due to excess calories; Z89.419 Acquired absence of unspecified great toe; M19.90 Unspecified osteoarthritis, unspecified site; E78.5 Hyperlipidemia, unspecified; Z79.4 Long term (current) use of insulin; F41.8 Other specified anxiety disorders; K21.9 Gastro-esophageal reflux disease without esophagitis; G89.29 Other chronic pain; N32.81 Overactive bladder; Z82.3 Family history of stroke; F41.0 Panic disorder [episodic paroxysmal anxiety]; E66.813 Obesity, class 3; B95.61 Methicillin susceptible Staphylococcus aureus infection as the cause of diseases classified elsewhere; B95.2 Enterococcus as the cause of diseases classified elsewhere; Z87.440 Personal history of urinary (tract) infections; Z90.49 Acquired absence of other specified parts of digestive tract; Z98.84 Bariatric surgery status
CPT/HCPCS: 36415; 73701; 73720; 80048; 80053; 80061; 80164; 81001; 81025; 82010; 82962; 83036; 83605; 83735; 84100; 84443; 85025; 85027; 85652; 86140; 87040; 87070; 87075; 87077; 87186; 87205; 87640; 87641; 94668; 94762; 97162; 97530; 97802; 97803; 99284; A9575; J2020; Q9967; A4216; J2405

== ENCOUNTER 2024-11-19 20:57 | Emergency (ER) | payer MEDICARE, MEDICAID, SELFPAY ==
[2024-11-19 20:58] VITALS: BP 122/94; PULSE 82; RESP 15; TEMP 37.1; O2SAT 100
[2024-11-19 22:06] VITALS: BP 125/96; PULSE 73; RESP 18; TEMP 36.9; O2SAT 98; BMI 41.3
--- NOTE | 2024-11-19 22:13 | EX.ED.DYSGE1 ---
HPI History of Present Illness Chief Complaint: Complaint Informant: patient Onset/Context/Timing Onset: Days (2) Context: Gradual Onset Timing: Continuous Quality: Throbbing Location: Abdomen and bilateral flank Worsened by: Nothing Relieved by: Nothing Narrative Narrative: Patient presents with abdominal and flank pain that has been getting worse over the past 2 days. Patient states it is gradually getting worse. Patient describes it as throbbing. Patient states it is diffuse across her abdomen and bilateral flanks. Patient states nothing makes it worse and nothing makes it better. Patient admits to some subjective chills. Patient denies any fevers. Patient admits to some nausea but denies any vomiting. Patient has a suprapubic catheter. Patient states it has not been changed in several months. [facility] Medical History Multiple drug resistant organism (MDRO) culture positive Non-pressure chronic ulcer of other part of left foot with necrosis of muscle Cutaneous abscess of left foot Fever Abscess of left heel Morbid obesity with BMI of 40.0-44.9, adult Therapy failure due to antibiotic resistance Leukocytosis Cellulitis of left leg Cellulitis of foot, left Type 2 diabetes mellitus with foot ulcer Suprapubic catheter Noncompliance with diabetes treatment Diabetes mellitus with diabetic polyneuropathy Depression Open wound of left foot Microalbuminuria CKD (chronic kidney disease) 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 Diabetic polyneuropathy Non-smoker Weakness Hyperglycemia Sepsis Urinary tract infection Diabetic foot infection Urinary tract infection Thyroid cyst Hematochezia Chronic nausea Insomnia PSVT (paroxysmal supraventricular tachycardia) Panic attacks Hyperlipidemia Lipomeningocele History of kidney stones Essential hypertension Dysthymic disorder DJD (degenerative joint disease) of thoracic spine Arthritis Anxiety and depression Uninodular goiter Non-compliance UTI (urinary tract infection) Cellulitis of left lower extremity Infection of bladder catheter Ulcer of left heel and midfoot with fat layer exposed Lower extremity edema Delayed wound healing Type 2 diabetes mellitus with diabetic polyneuropathy Diabetic ulcer of left heel with fat layer exposed Normochromic normocytic anemia Constipation Neurogenic bowel Neurogenic bladder Hydronephrosis of right kidney UTI (urinary tract infection) Diabetes mellitus, type II Morbid obesity with BMI of 40.0-44.9, adult Spina bifida aperta of lumbar spine History of migraine Chronic back pain Home Medications ?Medication ?Instructions ?Recorded ?Last Taken ?Type furosemide 20 mg tablet 20 mg PO 2200 fluid 08/28/18 08/10/24 History furosemide 40 mg tablet 40 mg PO BREAKFAST fluid 04/05/19 08/10/24 History oxybutynin chloride 15 mg 15 mg PO DAILY bladder 11/12/19 08/10/24 History tablet,extended release 24 hr acetaminophen 500 mg tablet 1,000 mg PO TID PRN PRN Pain Or 02/12/20 08/11/24 History Fever trazodone 100 mg tablet 100 mg PO QHS sleep 01/19/21 08/10/24 History atorvastatin 80 mg tablet 80 mg PO DAILY cholesterol 01/29/21 08/10/24 History pen needle, diabetic 32 gauge x #400 ea 03/05/21 Unknown Rx 5/32 (BD Ultra-Fine Hope Pen Needle) lisinopril 5 mg tablet 2.5 mg (1/2 x 5 mg) PO DAILY #90 01/21/22 08/10/24 Rx tabs pen needle, diabetic 32 gauge x #350 ea 09/01/22 Unknown Rx 5/32 (BD Ultra-Fine Hope Pen Needle) loratadine 10 mg tablet (Allergy 10 mg PO DAILY Antigistamine 11/07/23 08/10/24 History Relief (loratadine)) propranolol 20 mg tablet 20 mg PO BID Beta Pan 11/07/23 08/10/24 History ondansetron 4 mg disintegrating 4 mg PO Q8H PRN PRN Nausea #20 tabs 06/09/24 08/11/24 Rx tablet promethazine 25 mg tablet 25 mg PO TID PRN nausea and 07/31/24 08/01/24 Rx vomiting #20 tabs divalproex 500 mg tablet,delayed 500 mg PO QHS Migraine Headaches 08/11/24 08/10/24 History release omeprazole 20 mg capsule,delayed 20 mg PO DAILY PPI 08/11/24 08/10/24 History release cholecalciferol (vitamin D3) 125 125 mcg PO DAILY #0 caps 08/16/24 Unknown Rx mcg (5,000 unit) capsule enoxaparin 40 mg/0.4 mL 40 mg (0.4 mL) subcut BID #0 mL 08/16/24 Unknown Rx subcutaneous syringe insulin glargine-yfgn 100 unit/mL 30 unit (0.3 mL) subcut QHS #1 mL 08/16/24 Unknown Rx (3 mL) subcutaneous pen insulin lispro 100 unit/mL 12 unit (0.12 mL) subcut TIDCM #0 08/16/24 Unknown Rx subcutaneous pen (Humalog KwikPen mL (U-100) Insulin) insulin lispro 100 unit/mL See Protocol subcut TIDCM #0 mL 08/16/24 Unknown Rx subcutaneous pen (Humalog KwikPen (U-100) Insulin) linezolid 600 mg tablet 600 mg PO BID #0 tabs 08/16/24 Unknown Rx metronidazole 500 mg tablet 500 mg PO TID #22 tabs 08/16/24 Unknown Rx oxycodone 5 mg tablet 5 mg PO Q4H PRN PRN Pain Score 08/16/24 Unknown Rx 1-10 3 days #10 tabs pregabalin 75 mg capsule 75 mg PO BID #6 caps 08/16/24 Unknown Rx nitrofurantoin 100 mg PO Q12 #14 CAPSULES 11/20/24 Unknown Rx monohydrate/macrocrystals 100 mg capsule Allergy/AdvReac Type Severity Reaction Status Date / Time Cephalosporins Allergy Severe Anaphylaxis Verified 11/19/24 20:58 piperacillin (From Zosyn) Allergy Intermediate Hives Verified 11/19/24 20:58 ceftriaxone (From Rocephin) Allergy Anaphylaxis Verified 11/19/24 20:58 mushroom Allergy Anaphylaxis Verified 11/19/24 20:58 peanut Allergy Anaphylaxis Verified 11/19/24 20:58 tazobactam (From Zosyn) Allergy NEEDS Verified 11/19/24 20:58 FOLLOW-UP fentanyl AdvReac Low blood Verified 11/19/24 20:58 pressure gabapentin AdvReac Other Verified 11/19/24 20:58 Gadolinium-MRI Contrast AdvReac Vomiting Verified 11/19/24 20:58 Medium Latex, Natural Rubber AdvReac Rash Verified 11/19/24 20:58 vancomycin AdvReac Rash Verified 11/19/24 20:58 Family History Mother CVA (cerebral vascular accident) Thyroid disorder Diabetes Hypertension Heart disease Hyperlipidemia Myocardial infarction, Onset Age: 54 mother had diabetes Father Cancer skin Grandmother Cancer liver Other Arthritis Skin cancer Surgical History S/P colostomy S/P thyroid biopsy (~11/06/19) history insertion suprapubic catheter Status post gastric surgery Hx of foot surgery Hx of ventral hernia repair History of spinal surgery History of cholecystectomy History of dilation and curettage Social History household members: significant other Smoking Status: Never smoker alcohol intake: current substance use type: does not use ROS ROS ED Constitutional Constitutional ED: Reports chills and subjective; Denies fever(s) Eyes Eyes: Denies blurry vision or change in vision ENT ENT ED: Denies rhinorrhea or sore throat Cardiovascular Cardiovascular: Denies chest pain or palpitations Respiratory/Chest Respiratory/Chest: Denies cough or dyspnea Gastrointestinal Gastrointestinal: Reports nausea; Denies vomiting Genitourinary Genitourinary ED: Denies hematuria Musculoskeletal Musculoskeletal: Reports back pain; Denies neck pain Integumentary Denies abscess or rash Neurologic Neurologic: Denies headache(s) or weakness Allergic/Immunologic Allergic/Immunologic ED: Denies mouth swelling or urticaria EXAM Physical Exam Const Vital Signs: 11/19/24 20:58 11/19/24 22:06 11/19/24 22:59 Temperature 98.8 F 98.5 F 98.5 F Temperature Source Oral Oral Oral Pulse Rate 82 73 67 Respiratory Rate 15 18 18 Blood Pressure 122/94 H 125/96 H 120/84 H Blood Pressure Mean 103 105 96 Pulse Ox 100 98 100 Oxygen Delivery Method Room Air Room Air Room Air 11/20/24 00:00 11/20/24 01:00 11/20/24 01:59 Temperature 98.2 F 98.2 F 98.2 F Temperature Source Oral Oral Oral Pulse Rate 89 62 60 Respiratory Rate 16 16 16 Blood Pressure 125/89 H 123/77 H 114/84 H Blood Pressure Mean 101 92 94 Pulse Ox 100 99 98 Oxygen Delivery Method Room Air Room Air Room Air Positive well nourished and well developed Constitutional Narrative: BMI is 41.4 General Appearance ED: well developed and NAD HEENT Reports moist mucous membranes Neck supple and no JVD Resp normal respiratory effort and clear to auscultation bilaterally Cardio regular rate and regular rhythm GI non-distended Palpation: soft and tender epigastric, LLQ, RLQ, LUQ, RUQ, periumbilical and suprapubic; Negative for guarding or rebound tenderness present Back/Spine General Back: CVA tenderness bilateral Neuro oriented x3 and CN's II-XII intact bilaterally Sensorium / Orientation: alert Psych mental status grossly normal MDM MDM MDM Narrative Medical decision making narrative: Differential diagnosis includes urinary tract infection, pyelonephritis, dehydration, electrolyte abnormality, ureteral calculus, and sepsis. CBC will be obtained to assess for leukocytosis and anemia. Basic metabolic profile will be obtained to assess for electrolyte abnormality renal function. Urinalysis will be obtained to assess for urinary tract infection and hematuria. Serum lactate will be obtained to assess for sepsis. Serum hCG will be obtained to assess for . PT with INR and PTT will be obtained to assess for coagulopathy. Blood culture will be obtained to assess for sepsis. Urine culture will be obtained to assess for urinary tract infection. History & Record Review Additional record(s) reviewed:: Prior inpatient record, Prior ED visit and Prior labs Lab Data Attestation: I reviewed the patient's lab results. Lab results narrative: CBC was reviewed. There is a slight leukocytosis of 12.0. Basic metabolic profile was reviewed. Glucose was elevated to 72. BUN was slightly elevated at 20. The remainder is within normal limits. Serum lactate was reviewed and was normal at 1.8. Serum hCG was reviewed and was negative. Urinalysis was reviewed. Leukocyte esterase was 500 with 50-100 white blood cells and 3+ bacteria. There are positive nitrites. Labs: Laboratory Results - last 24 hr 11/19/24 11/20/24 22:44 00:57 WBC 12.0 H RBC 4.62 Hgb 14.0 Hct 41.1 MCV 89.0 MCH 30.3 MCHC 34.1 RDW Std Deviation 44.7 H RDW Coeff of Claude 13.9 Plt Count 184 MPV 11.0 Immature Gran % (Auto) 0.900 Neut % (Auto) 47.1 Lymph % (Auto) 40.2 [place] % (Auto) 9.9 Eos % (Auto) 1.1 Baso % (Auto) 0.8 Absolute Neuts (auto) 5.6 Absolute Lymphs (auto) 4.81 H Nucleated RBC % 0 PT 12.6 INR 0.9 APTT 26.2 Sodium 133 Potassium 4.7 Chloride 103 Carbon Dioxide 17.3 L Anion Gap 13 BUN 20 H Creatinine 0.81 Estim Creat Clear Calc 96.70 Est GFR (MDRD) Non-Af 92 BUN/Creatinine Ratio 24.1 H Glucose 272 H Lactic Acid 1.8 Calcium 8.8 Serum , Qual NEGATIVE Urine Color Yellow Urine Clarity Sl. Cloudy Urine pH 6.5 Ur Specific [place] 1.015 Urine Protein 100 H Urine Glucose (UA) 1000 H Urine Ketones Negative Urine Occult Blood 25 H Urine Nitrite Positive H Urine Bilirubin Negative Urine Urobilinogen Normal Ur Leukocyte Esterase 500 H Urine RBC 5-10 SEEN Urine WBC 50-100 SEEN Ur Squamous Epith Cells 0-5 SEEN Urine Bacteria 3+ Urine Mucus 0 SEEN Treatment and Re-Evaluation :: Patient was given IV fluids, morphine, and Zofran. Patient was feeling better on reevaluation. Patient was advised of her findings. Patient was given a dose of Levaquin here. Patient was given prescription for Macrobid. Patient was instructed to drink plenty of fluids. Patient was instructed to follow-up with her primary care physician and urologist in 3 to 5 days. Patient was instructed to return if worse in any way. Patient understood and was agreeable with the plan. All questions were answered. Discharge Plan Triage Chief Complaint: Complaint ED Provider: Rigo Espinal Dx/Rx/DC Orders Clinical Impression: Urinary tract infection, History of diabetes mellitus, Spina bifida Instructions: ED Cystitis Female Adult Prescriptions: New nitrofurantoin monohyd/m-cryst 100 mg capsule 100 mg PO Q12 Qty: 14 0RF No Action atorvastatin 80 mg tablet 80 mg PO DAILY Patient Comments: Take 1 tablet by mouth once daily. (DME) pen needle, diabetic [BD Ultra-Fine Hope Pen Needle] 32 gauge x 5/32 needle See Rx Instructions .ROUTE .MEDSUPPLY Qty: 400 6RF Rx Instructions: 4x/day (DME) pen needle, diabetic [BD Ultra-Fine Hope Pen Needle] 32 gauge x 5/32 needle See Rx Instructions .ROUTE .MEDSUPPLY Qty: 350 1RF Rx Instructions: 4 times daily furosemide 20 MG tablet 20 mg PO 2200 Rx Instructions: 20 mg in the evening furosemide 40 MG tablet 40 mg PO BREAKFAST oxybutynin chloride 15 mg tablet extended release 24hr 15 mg PO DAILY acetaminophen 500 MG tablet 1,000 mg PO TID PRN PRN (Reason: Pain Or Fever) trazodone 100 mg tablet 100 mg PO QHS Patient Comments: Take 1 tablet by mouth daily at bedtime. lisinopril 5 mg tablet 2.5 mg PO DAILY Qty: 90 3RF Rx Instructions: Hold for SBP less than 130 mmHg ondansetron 4 mg tablet,disintegrating 4 mg PO Q8H PRN PRN (Reason: Nausea) Qty: 20 0RF promethazine 25 mg tablet 25 mg PO TID PRN (Reason: nausea and vomiting) Qty: 20 0RF divalproex 500 mg tablet,delayed release (DR/EC) 500 mg PO QHS omeprazole 20 mg capsule,delayed release(DR/EC) 20 mg PO DAILY cholecalciferol (vitamin D3) 125 mcg (5,000 unit) Capsule 125 mcg PO DAILY Qty: 0 0RF enoxaparin 40 mg/0.4 mL Syringe 40 mg subcut BID Qty: 0 0RF insulin lispro [Humalog KwikPen Insulin] 100 unit/mL Insulin Pen 12 unit subcut TIDCM Qty: 0 0RF insulin lispro [Humalog KwikPen Insulin] 100 unit/mL Insulin Pen See Protocol subcut TIDCM Qty: 0 0RF Protocol: 3. Sliding Scale Insulin Med Dosing Condition: 150-189 mg/dl = 1 unit Condition: 190-229 mg/dl = 2 units Condition: 230-269 mg/dl = 3 units Condition: 270-309 mg/dl = 4 units Condition: 310-349 mg/dl = 5 units Condition: 350-399 mg/dl = 6 units Condition: 400-449 mg/dl = 7 units Condition: Greater than 449 call physician Protocol Text: Suggested for: - Patients on Total Daily Insulin Dose of 37-55 units - Obese, infected, or steroid patients MEDIUM DOSING ALGORITHIM insulin glargine-yfgn 100 unit/mL (3 mL) Insulin Pen 30 unit subcut QHS Qty: 1 0RF metronidazole 500 mg Tablet 500 mg PO TID Qty: 22 0RF Rx Instructions: Give 22 doses starting the evening of 08/16/2024 linezolid 600 mg Tablet 600 mg PO BID Qty: 0 0RF Rx Instructions: Give 15 doses starting the evening of 08/16/2024 oxycodone 5 mg Tablet 5 mg PO Q4H PRN PRN (Reason: Pain Score 1-10) 3 Days Qty: 10 0RF pregabalin 75 mg Capsule 75 mg PO BID Qty: 6 0RF propranolol 20 mg tablet 20 mg PO BID loratadine [Allergy Relief (loratadine)] 10 mg tablet 10 mg PO DAILY Primary Care Provider: Will Shukla Referrals: Will Shukla MD [Primary Care Provider] - 3-5 Days Activity Restrictions/Additional Instructions: Follow-up with your urologist in 3 to 5 days as well. Print Language: Burkinan Disposition Disposition: Home, Self Care
--- OUTSIDE RECORDS SUMMARY | 2024-11-19 22:49 | XMS RPT_ITS | CCD ---
Author Organization [facility] CliniSyne Care Team Providers Care Hospital Product Specialist Name Role Phone LETIDAKOTAHCoral RIGO Solis Unavailable Unavailable VAZQUEZ, WILL A Unavailable Unavailable VAZQUEZ, WILL A Unavailable Unavailable ALRED, REID R Unavailable Unavailable REFERRING, PHY WO ID Unavailable Unavailable REFERRING, PHY WO ID Unavailable Unavailable ALI, NOAMAN S Unavailable Unavailable Fawn Herrera Unavailable Unavailable Vazquez, Will A Unavailable Unavailable ALI, NOAMAN S Unavailable Unavailable Vazquez, Will A Unavailable Unavailable ALI, NOAMAN S Unavailable Unavailable ALI, NOAMAN S Unavailable Unavailable Vazquez, Will A Unavailable Unavailable ALI, NOAMAN S Unavailable Unavailable ALI, NOAMAN S Unavailable Unavailable IMCA Unavailable Unavailable Vazquez, Will A Unavailable Unavailable Vazquez, Will A Unavailable Unavailable CHAUDHARY, ANNAMARIA Unavailable Unavailable ALI, NOAMAN Unavailable Unavailable FAWN HERRERA Unavailable Unavailable ALI, NOAMAN Unavailable Unavailable ALI, NOAMAN Unavailable Unavailable ALI, NOAMAN Unavailable Unavailable ALI, NOAMAN Unavailable Unavailable CHAUDHARY, ANNAMARIA NAYELY Unavailable Unavaila ble ALI, NOAMAN Unavailable Unavailable WILL BRANNON MD Primary Care Physician Will Brannon MD Primary Care Provider Dr. Will Brannon Primary Care Provider Dr. Agustin Aguilar Emergency Provider [phone] Dr. Rigo Encarnacion Admit Provider Dr. Rigo Encarnacion Attending Provider Dr. Rigo Encanracion Other Provider Dr. Too Hendricks Attending Provider Dr. Too Hendricks Other Provider Will Brannon MD Primary Care Provider VAZQUEZ FITZGERALD, WILL Morrow Primary Care Physician Vazquez FITZGERALD, Will Morrow Primary Care Provider Vazquez FITZGERALD, Will A Primary Care Provider Dr. Will Brannon Primary Care Provider Dr. Alexander Hooks Emergency Provider Dr. Brittani Panda Admit Provider Dr. Brittani Panda Attending Provider Dr. Brittani Panda Other Provider Dr. Quynh Boyer Attending Provider Dr. Quynh Boyer Other Provider Dr. Bev Ngo Other Provider Dr. Will Guo Other Provider Dr. Rigo Encarnacion Attending Provider Dr. Rigo Encarnacion Other Provider Dr. Will Brannon Primary Care Provider Dr. Alexander Hooks Emergency Provider Dr. Brittani Panda Admit Provider Dr. Brittani Panda Attending Provider Dr. Brittani Panda Other Provider Dr. Quynh Boyer Attending Provider Dr. Quynh Boyer Other Provider Dr. Bev Ngo Other Provider Dr. Will Guo Other Provider Dr. Rojas Oates Attending Provider Dr. Brittani Panda Referring Provider Dr. Rigo Encarnacion Attending Provider Dr. Rigo Encarnacion Other Provider Dr. Will Brannon Referring Provider Dr. Adi Monson Attending Provider Dr. Will Brannon Primary Care Provider ANDREW JOHANSEN Referring Unavailable WILL BRANNON Primary Care Unavailable MIGUEL ANGEL VILLAR Admitting Unavailable MIGUEL ANGEL VILLRA Attending Unavailable RAMANA CORONA Consulting Unavailable ELIZABETH PEDROZA DO Attending Unavailable MARGARET PEDROZAOTHY Primary Care Unavailable ELIZABETH PEDROZA DO Admitting Unavailable Katie Vegas RN Unavailable Unavailable ARACELI TORRES Referring Unavailable WILL BRANNON Primary Care Unavailable Will Brannon MD Primary Care Provider Vazquez FITZGERALD, Will Morrow Primary Care Provider VAZQUEZ FITZGERALD, WILL Morrow Primary Care Unavailable KRISTOFER LARKIN MD Admitting Unavailable ALTAGRACIA HARE MD Attending Unavailable LOI LINDSAY Consulting Unavailable JOHAN GERMAN MD Consulting Unavailable ARACELI KIDD DO Consulting Loree kurt MOON MD, KRISTINE Consulting UnavailCOREEN Davey MD Consulting Unavailable DR JORGE LAGOS MD, BA Consulting UnavailWILL Polo MD Primary Care Unavailable DR FALGUNI BRICE MD Attending Unavailjennie DOMINGUEZ MD, BRADY Naylor Attending Unavailable WILL BRANNON MD Primary Care Unavailable MARTIN CHAHAL MD Attending Unavail able WILL BRANNON MD Primary Care Unavailable WILL BRANNON MD Primary Care Unavailable GEOFF DAVIS-BURIAL AGENT, KYARA Admitting Unavailab SOLEDAD Burgess DO Attending Unavailable WILL BRANNON MD Primary Care Unavailable DR WALLACE BRUNSON MD Admitting Unavailable JC RETANA MD Attending Unavailable JC RETANA MD Referring Unavailable CAS PAYNE DO Attending Unavailable WILL BRANNON MD Primary Care Unavailable KRISTOFER LARKIN MD Consulting Unavailable TYLER BARRETT DO Attending Unavailable WILL BRANNON MD Primary Care Unavailable Ashley DAVIS.BURIAL AGENT, Devin Unavailable Ronaldo HANNAH, Netta Unavailable [phone] WILL BRANNON MD Primary Care Unavailable SOLEDAD VARGAS MD Attending Unavailable VAZQUEZ MD, WILL A Primary Care Unavailable LEYLA CHRISTIANSON LUDWIG Attending Unavailable VAZQUEZ FITZGERALD, WILL A Primary Care Unavailable TIRSO FITZGERALD, MARTIN Quesada Attending Unavail able VAZQUEZ FITZGERALD, WILL A Primary Care Unavailable NENA CHRISTIANSON, TYLER Attending Unavailable Vazquez FITZGERALD, Dr. Solis Primary Care Provider Vazquez FITZGERALD, Dr. Solis Attending Provider Vazquez FITZGERALD, Dr. Solis Referring Provider Mee CHRISTIANSON, Dr. Barrett Attending Provider Mee CHRISTIANSON, Dr. Barrett Emergency Provider Teddy CHRISTIANSON, Dr. Sierra Attending Provider Schwuyen CHRISTIANSON, Dr. Sierra Emergency Provider Say FITZGERALD, Dr. Erickson Attending Provider Say FITZGERALD, Dr. Erickson Emergency Provider Mary CHRISTIANSON, Dr. Velasquez Emergency Provider Dr. Kevin Barcenas MD Emergency Provider Rose DO, Dr. Fletcher Admit Provider Unavail able Rose DO, Dr. Fletcher Attending Provider Unav ailable Mary CHRISTIANSON, Dr. Velasquez Attending Provider Rose DO, Dr. Fletcher Other Provider Unavail able Dr. Quynh Boyer DO Attending Provider Abi FITZGERALD, Dr. Betts Other Provider Carlos REYES, Dr. Zelaya Other Provider Rosalind CHRISTIANSON, Dr. Booker Other Provider Vazquez FITZGERALD, Will Morrow Primary Care Provider Vazquez FITZGERALD, Dr. Solis Primary Care Provider Dr. Emilee Richard MD Attending Provider Unavailnatacha Richard MD, Dr. Hebert Referring Provider UnavailWill Polo Primary Care Unavailable Emilee Sales Attending Unavailable Emilee Sales Referring Unavailable Arnold Caban Attending Unavailable Vazquez, Will Primary Care Unavailable Vazquez, Will Primary Care Unavailable Ramana Rose Admitting Unavailable Quynh Boyer Attending Unavailable Ramana Rose Consulting Unavailable Bev Ngo Consulting Unavailable Garcia Gonzalez Consulting Unavailable Quynh Boyer Consulting Unavailable Vazquez, Will Primary Care Unavailable Gudla OLS, Emilee Attending Unavailable Vazquez, Will Primary Care Unavailable Gudla OLS, Emilee Attending Unavailable Gudla OLS, Emilee Referring Unavailable Harry Billings Attending Unavailable Vazquez, Will Primary Care Unavailable Alexander Hooks Attending Unavailable Vazquez, Will Primary Care Unavailable Agustin Aguilar Attending Unavailable Vazquez, Will Primary Care Unavailable Ramana Rose Attending Unavailable Ron Hernandez Attending Unavailable Vazquez, Will Primary Care Unavailable Dre Deal Attending Unavailable Vazquez, Will Primary Care Unavailable Vazquez, Will Referring Unavailable Vazquez, Will Attending Unavailable Vazquez, Will Primary Care Unavailable Vazquez, Will Referring Unavailable Vazquez, Will Attending Unavailable Vazquez, Will Primary Care Unavailable Rigo Espinal Attending Unavailable Vazquez, Will Primary Care Unavailable Vazquez, Will Primary Care Unavailable Gudla OLS, Emilee Attending Unavailable Ramana Rose Admitting Unavailable Ramana Rose Consulting Unavailable Vazquez, Will Primary Care Unavailable Quynh Boyer Attending Unavailable Bev Ngo Consulting Unavailable Carlos, Garcia Consulting Unavailable Vazquez, Will Primary Care Unavailable Gudla OLS, Emilee Attending Unavailable Gudla OLS, Emilee Referring Unavailable Devin George APRN.CNP Unavailable Netta Higgins PA-C Unavailable [phone] VAZQUEZ, WILL A Primary Care Unavailable VAZQUEZ, WILL A Primary Care Unavailable SABRA NEVAREZ Attending Unavailable VAZQUEZ, WILL A Primary Care Unavailable NILDA UNDERWOOD Referring Unavailable VAZQUEZ, WILL A Primary Care Unavailable VAZQUEZ, WILL A Primary Care Unavailable Xavier Josue Referring Unavailable MELLISA PAUL Attending Unavailable VAZQUEZ, WILL A Primary Care Unavailable CORY BOX Attending Unavailable VAZQUEZ, WILL A Primary Care Unavailable Xavier Josue Attending Unavailable VAZQUEZ, WILL A Primary Care Unavailable Xavier Josue Referring Unavailable Xavier Josue Attending Unavailable VAZQUEZ, WILL A Primary Care Unavailable DEVIN GEORGE Referring Unavailable JOS ALEXANDER Attending Unavailable VAZQUEZ, WILL A Primary Care Unavailable VAZQUEZ, WILL A Primary Care Unavailable VAZQUEZ, WILL A Referring Unavailable VAZQUEZ, IWLL A Primary Care Unavailable VAZQUEZ, WILL A Referring Unavailable VAZQUEZ, WILL A Primary Care Unavailable ABRJOS BULLARD Attending Unavailable VAZQUEZ, WILL A Primary Care Unavailable VAZQUEZ, WILL A Primary Care Unavailable VAZQUEZ, WILL A Primary Care Unavailable VAZQUEZ, WILL A Attending Unavailable VAZQUEZ, WILL A Primary Care Unavailable DREWAMJOS HARVEY Referring Unavailable VAZQUEZ, WILL A Primary Care Unavailable ARACELI TORRES Attending Unavailable VAZQUEZ, WILL A Primary Care Unavailable VAZQUEZ, WILL A Primary Care Unavailable DEVIN GEORGE Attending Unavailable VAZQUEZ, WILL A Primary Care Unavailable ARACELI TORRES Attending Unavailable VAZQUEZ, WILL A Primary Care Unavailable DEVIN GEORGE Referring Unavailable VAZQUEZ, WILL A Primary Care Unavailable DEVIN GEORGE Referring Unavailable JOS ALEXANDER Attending Unavailable VAZQUEZ, WILL A Primary Care Unavailable DEVIN GEORGE Referring Unavailable CIMEGHANE, NILDA C Attending Unavailable VAZQUEZ, WILL A Primary Care Unavailable CIMEGHANE, NILDA C Referring Unavailable VAZQUEZ, WILL A Primary Care Unavailable DEVIN GEORGE Attending Unavailable VAZQUEZ, WILL A Primary Care Unavailable VAZQUEZ, WILL A Primary Care Unavailable VAZQUEZ, WILL A Primary Care Unavailable JOS ALEXANDER Referring Unavailable Allergies Allergy Classification Reported Allergen(s) Allergy Type Date of Onset Reaction(s) Facility Anti-Epileptic Agents (1 source) gabapentin; Translations: [gabapentin] Drug Allergy psychotic breakdown [facility] Comment on above: Psychotic breakdown. Cephalosporins (antibiotic) (2 sources) cefTRIAXone; Translations: [ceftriaxone] Drug Allergy Hives, Anaphylaxis [facility] Comment on above: Hives, itching, redn ess anaphylaxis Contrast Media (1 source) Contrast media; Translations: [contrast media (gadolinium-based) ] Substance Allergy [facility] Glycopeptides (antibiotic) (1 source) Vancomycin; Translations: [vancomycin] Drug Allergy [facility] Comment on above: red man syndrome Penicillins (antibiotic) (1 source) Penicillin; Translations: [penicillin] Drug Allergy Unknown [facility] Comment on above: Was given at same ti me as Cephalosporins. Unknown if also contributed to anaphylaxis. (1 source) peanut; Translations: [PEANUT ALLERGY] Propensity to adverse reactions to drug (disorder) 08-06-19 16 [facility] Repository (1 source) MUSHROOM EXTRACT COMPLEX; Translations: [MUSHROOM EXTRACT COMPLEX] Propensity to adverse reactions to drug (disorder) 08-13-19 16 [facility] (20 sources) Mushroom (edible); Translations: [MUSHROOM] Propensity to adverse reactions (disorder) 06-10-19 Anaphylaxis [facility] Rep[facility] (20 sources) peanut; Translations: [PEANUTS] Propensity to adverse reactions (disorder) 06-10-19 Anaphylaxis [facility] (20 sources) GADOLINIUM-CONTAIN ING CONTRAST MEDIA; Translations: [GADOLINIUM-CONTAI MELODIE CONTRAST MEDIA] Propensity to adverse reactions (disorder) 01-04-20 17 GI Upset [facility] Repository (3 sources) Contrast media; Translations: [iodinated radiocontrast agents] Drug allergy [facility] (20 sources) Latex; Translations: [LATEX] Allergy to substance 02-22-20 [facility] (4 sources) Mushroom (edible); Translations: [MUSHROOMS] Food allergy [facility] (20 sources) cefTRIAXone; Translations: [ceftriaxone] Drug Allergy 09-18-19 Anaphylaxis [facility] Work Phone: Comment on above: Hives, itching, redn ess (20 sources) natural latex rubber; Translations: [Latex, Natural Rubber] Propensity to adverse reactions 09-18-19 [facility] (20 sources) peanut allergenic extract; Translations: [PEANUT] Drug Allergy 12-24-19 Anaphylaxis [facility] (20 sources) Gadolinium-MRI Contrast Medium; Translations: [Gadolinium-MRI Contrast Medium] Propensity to adverse reactions 09-18-19 [facility] (20 sources) fentaNYL Drug Allergy 10-01-19 Other: See Comments [facility] Work Phone: (20 sources) gabapentin; Translations: [gabapentin] Drug Allergy 10-01-19 Mental Status Change [facility] Comment on above: Psychotic breakdown. (6 sources) Lidocaine Drug Allergy 10-01-19 Other: See Comments [facility] Work Phone: (6 sources) Midazolam Drug Allergy 10-01-19 Other: See Comments [facility] Work Phone: (6 sources) Propofol Drug Allergy 10-01-19 Other: See Comments [facility] Work Phone: (6 sources) Rocuronium Drug Allergy 10-01-19 Other: See Comments [facility] Work Phone: (20 sources) Cephalosporins (Antibiotic); Translations: [CEPHALOSPORINS] Drug Allergy 12-10-19 Anaphylaxis [facility] Work Phone: (2 sources) Penicillin; Translations: [penicillin] Drug Allergy [facility] (16 sources) Cephalosporins (Antibiotic); Translations: [cephalosporins] Drug allergy [facility] Comment on above: anaphylaxis (16 sources) Penicillin; Translations: [penicillin] Drug Allergy Unknown [facility] Comment on above: Was given at same ti me as Cephalosporins. Unknown if also contributed to anaphylaxis. (12 sources) Latex 4 Allergy to substance [facility] Comment on above: Hives (10 sources) Peanuts 5 Food allergy Throat swelling [facility] Comment on above: Throat swells. (10 sources) Mushrooms 7 Food allergy Throat swelling [facility] Comment on above: Throat swells. (10 sources) Contrast dye 8; Translations: [iodinated radiocontrast agents] Drug allergy Vomiting [facility] Comment on above: [facility] Con trast Dye causes N/V. [facility] constrast dye did not. (1 source) Piperacillin / tazobactam Drug Allergy 02-15-20 23 NEEDS FOLLOW-UP [facility] (20 sources) Vancomycin; Translations: [vancomycin] Drug Allergy 07-12-19 23 Rash [facility] Comment on above: red man syndrome (15 sources) Piperacillin Drug Allergy 07-18-19 NEEDS FOLLOW-UP [facility] (15 sources) tazobactam Drug Allergy 07-18-19 NEEDS FOLLOW-UP [facility] (1 source) CONTRAST MEDIA, IODINE RELATED Drug allergy (disorder) [facility] Repository (1 source) Latex 3 Allergy to substance Hives [facility] Comment on above: Hives (1 source) Mushrooms 5 Food allergy Throat swelling [facility] Comment on above: Throat swells. (1 source) Contrast dye 6; Translations: [iodinated radiocontrast agents] Drug allergy Vomiting [facility] Comment on above: [facility] Con trast Dye causes N/V. [facility] constrast dye did not. (3 sources) Peanuts 8 Food allergy Throat swelling [facility] Comment on above: Throat swells. (5 sources) Contrast media; Translations: [contrast media (gadolinium-based) ] Drug allergy [facility] (4 sources) Latex 5 Allergy to substance Hives [facility] Comment on above: Hives (4 sources) Peanuts 6 Food allergy Throat swelling [facility] Comment on above: Throat swells. (4 sources) Mushrooms 8 Food allergy Throat swelling [facility] Comment on above: Throat swells. (2 sources) Mushrooms 6 Food allergy Throat swelling [facility] Comment on above: Throat swells. (3 sources) Cephalosporins (Antibiotic) Allergy to substance 08-12-19 [facility] (1 source) cefTRIAXone Drug Allergy 08-13-19 25 [facility] Repository (1 source) Cephalosporins (Antibiotic) Drug allergy (disorder) 08-13-19 25 [facility] Rep[facility] (1 source) fentaNYL Drug Allergy 08-13-19 25 [facility] Rep[facility] (1 source) gabapentin Drug Allergy 08-13-19 25 [facility] Repository (1 source) peanut allergenic extract Drug Allergy 08-13-19 [facility] (1 source) Piperacillin Drug Allergy 08-13-19 [facility] (1 source) tazobactam Drug Allergy 08-13-19 [facility] (1 source) Vancomycin Drug Allergy 08-13-19 [facility] Repository Medications Current Medications Medication Drug Class(es) Dates Sig (Normalized) Sig (Original) acetaminophen 500 mg oral tablet (20 sources) Start: 02-12-2020 Start: 01-13-2019 acetaminophen (TYLENOL) 500 mg tablet Take 650 mg by mouth every 6 hours as needed. 01/13/2019 Active Start: 01-13-2019 End: 02-09-2022 acetaminophen (TYLENOL) 325 mg tablet 325 mg as needed. 0 01/13/2019 02/09/2022 Discontinued Comment on above: 325 mg as needed. Take 650 mg by mouth . acetaminophen 325 mg / oxyCODONE hydrochloride 5 mg oral tablet (20 sources) Opioid Agonist Start: 06-02-2024 End: 06-05-2024 take 1 tablet by mouth every six hours as needed for pain Percocet 5 mg-325 mg oral tablet Dose = 1 tab(s), Oral, q6h, PRN Pain, X 3 day(s), # 12 tab(s), 0 Refill(s), Sprain of low back, 99 Start Date: 06/02/24 Stop Date: 06/05/24 Status: Ordered Quantity: 12.0 Unit: tab(s) Repeat number: 1 Indication: Sprain of ligaments of lumbar spine, initial encounter Start: 02-26-2024 End: 02-29-2024 take 1 tablet by mouth every six hours as needed for pain Percocet 5 mg-325 mg oral tablet Dose = 1 tab(s), Oral, q6hr, PRN for pain, X 3 day(s), # 12 tab(s), 0 Refill(s), Abdominal pain, 99 Start Date: 02/26/24 Stop Date: 02/29/24 Status: Ordered Start: 07-20-2023 End: 07-23-2023 take 1 tablet by mouth every four hours as needed for pain Percocet 5 mg-325 mg oral tablet Dose = 1 tab(s), Oral, q4h, PRN as needed for pain, X 3 day(s), # 12 tab(s), 0 Refill(s), UTI - Urinary tract infection, 97.7 Start Date: 07/20/23 Stop Date: 07/23/23 Status: Ordered Start: 07-15-2023 End: 07-17-2023 take 1 tablet by mouth every six hours as needed for pain Percocet 5 mg-325 mg oral tablet Dose = 1 tab(s), Oral, q6h, PRN for pain, X 2 day(s), # 8 tab(s), 0 Refill(s), Pharmacy: [id number], Pyelonephritis, 155, cm, 07/15/23 13:05:00 EST, Height, 100, kg, 07/15/23 13:05:00 EST, Dosing Weight Start Date: 07/15/23 Stop Date: 07/17/23 Status: Ordered Start: 11-22-2022 End: 11-25-2022 take 1 tablet by mouth every six hours as needed for pain Percocet 5 mg-325 mg oral tablet Dose = 1 tab(s), Oral, q6h, PRN for pain, X 3 day(s), # 12 tab(s), 0 Refill(s), UTI - Urinary tract infection, 94.1 Start Date: 11/22/22 Stop Date: 11/25/22 Status: Ordered Start: 08-20-2021 take 1 tablet by kelin th every six hours Oxycodone-Acetaminophen (Percocet) 5-325 mg tablet Active 1 TABLET PO EVERY 6 HOURS 8 2 August 20, 2021 4:20am Start: 06-30-2020 End: 07-05-2020 Start: 06-30-2020 End: 07-05-2020 take 1 tablet by mouth every six hours as needed Oxycodone-Acetaminophen Discontinued 1 TABLET PO EVERY 6 HOURS NEEDED 15 10June 30, 2020 July 05, 2020 1:03am Start: 01-26-2016 End: 01-29-2016 Start: 01-26-2016 End: 01-29-2016 take 1 tablet by mouth every six hours as needed Oxycodone-Acetaminophen Discontinued 1 - 2 TABLET PO EVERY 6 HOURS NEEDED January 26, 2016 12:00am January 29, 2016 1:06pm Start: 11-15-2015 End: 11-18-2015 Start: 11-15-2015 End: 11-18-2015 take 1 tablet by mouth every four hours as needed Oxycodone-Acetaminophen Discontinued 1 - 2 TABLET PO EVERY 4 HOURS NEEDED November 15, 2015 12:00am November 18, 2015 1:50pm Start: 01-06-2015 End: 01-20-2015 Start: 01-06-2015 End: 01-20-2015 take 1 tablet by mouth every four hours as needed Oxycodone-Acetaminophen Discontinued 1 - 2 TABLET PO EVERY 4 HOURS NEEDED January 06, 2015 12:00am January 20, 2015 9:53am Start: 01-17-2014 End: 04-04-2014 Start: 01-17-2014 End: 04-04-2014 take 2 tablets by mouth every eight hours as needed Oxycodone-Acetaminophen Discontinued 2 TABLET PO EVERY 8 HOURS NEEDED January 17, 2014 12:00am April 04, 2014 9:42am Start: 09-15-2013 End: 10-15-2013 Start: 09-15-2013 End: 10-15-2013 take 1 tablet by mouth every four hours as needed Oxycodone-Acetaminophen Discontinued 1 - 2 TABLET PO EVERY 4 HOURS NEEDED September 15, 2013 12:00am October 15, 2013 12:45pm atorvastatin 80 mg oral tabl et (20 sources) HMG-CoA Reductase Inhibitor Start: 01-29-2021 Start: 11-23-2020 End: 04-10-2024 take 1 tablet by mouth once daily atorvastatin (LIPITOR) 80 mg tablet Take 1 tablet by mouth once daily. 90 tablet 1 04/10/2024 Active Start: 11-01-2019 End: 2019 take 20 mg by mouth at bedtime Atorvastatin Discontinu ed 20 MG PO AT BEDTIME November 01, 2019 8:59am 2019 11:01am Start: 11-07-2017 End: 2019 Start: 11-07-2017 End: 11-01-2019 take 10 mg by mouth at bedtime Atorvastatin Discontinu ed 10 MG PO AT BEDTIME November 07, 2017 12:00am November 01, 2019 9:00am Comment on above: Take 1 tablet by kelin th once daily. Blood-Glucose Meter,Continuous (FREESTYLE ROSA 3 READER) misc (20 sources) Start: 12-06-2023 Blood-Glucose Meter,Continuous (FREESTYLE ROSA 3 READER) misc DISPENSE ONE READER KIT. USE FOR CONTINUOUS GLUCOSE MONITORING. MULTIPLE INSULIN INJECTIONS. E11.9 1 Each 12/06/2023 Active Start: 12-06-2023 Blood-Glucose Meter,Continuous (FREESTYLE ROSA 3 READER) misc DISPENSE ONE READER KIT. USE FOR CONTINUOUS GLUCOSE MONITORING. MULTIPLE INSULIN INJECTIONS. E11.9 1 Each 0 12/06/2023 Active Blood-Glucose Sensor (FREESTYLE ROSA 3 SENSOR) tara (20 sources) Start: 12-06-2023 Blood-Glucose Sensor (FREESTYLE ROSA 3 SENSOR) tara CHANGE SENSOR EVERY 14 DAYS, USE FOR CONTINUOUS GLUCOSE MONITORING. MULTIPLE INSULIN INJECTIONS. 6 Each 3 12/06/2023 Active busPIRone hydrochloride 15 mg oral tablet (20 sources) Start: 12-27-2018 take 1 tablet by mouth once daily busPIRone (BUSPAR) 15 mg tablet Take 15 mg by mouth once daily. 12/27/2018 Active Comment on above: Take 15 mg by mouth. cholecalciferol 0.125 mg oral capsule (2 sources) Vitamin D Start: 08-16-2024 COMPOUNDED PRESCRIPTION (20 sources) Start: 12-05-2017 COMPOUNDED PRESCRIPTION Stoma catheter tube. DX: Qo5.4 and K59.2 1 Device 12/05/2017 Active Start: 12-05-2017 COMPOUNDED PRE SCRIPTION Stoma catheter tube. DX: Qo5.4 and K59.2 1 Device 0 12/05/2017 Suspended Start: 12-05-2017 COMPOUNDED PRE SCRIPTION Stoma catheter tube. DX: Qo5.4 and K59.2 1 Device 0 12/05/2017 Active Comment on above: Stoma catheter tube. DX: Qo5.4 and K59.2 DME MISCellaneous (12 sources) Start: 02-25-2023 DME MISCellaneous See Instructions, Sterile water, 40 syringes, 40 needles, alchohol swabs., # 1 EA, 0 Refill(s), 97.9 Start Date: 02/25/23 Status: Ordered Quantity: 1.0 Unit: EA Repeat number: 1 Start: 02-25-2023 DME MISCellane ous See Instructions, Sterile water, 40 syringes, 40 needles, alchohol swabs., # 1 EA, 0 Refill(s), 97.9 Start Date: 02/25/23 Status: Ordered Drainage Bag misc (20 sources) Start: 12-05-2023 Drainage Bag m isc Indications: Neurogenic bladder 1 Each every 2 weeks. 12 Each 4 12/05/2023 Active Start: 12-02-2022 Drainage Bag m isc Indications: Neurogenic bladder 1 Each every 2 weeks. 12 Each 2 12/02/2022 Active Comment on above: 1 Each every 2 weeks . DULoxetine 30 mg delayed release oral capsule (20 sources) Serotonin and Norepinephrine Reuptake Inhibitor Start: End: take 1 capsule by mouth once daily DULoxetine (CYMBALTA) 30 mg capsule Take 30 mg by mouth once daily. 10/14/2022 Active Start: 10-06-2015 End: 02-09-2022 Cymbalta 20 mg oral delayed release capsule Dose : 20 mg = 1 cap(s), Oral, qDay Start Date: 11/27/16 Status: Ordered Comment on above: Take 20 mg by mouth. Take 30 mg by mouth once daily. 0.4 ml enoxaparin sodium 100 mg/ml prefilled syringe (17 sources) Low Molecular Weight Heparin Start: 08-16-2024 Start: 07-18-2022 End: 01-04-2023 Start: 07-18-2022 End: 01-04-2023 Enoxaparin Discontinued 40 M G SC DAILY July 18, 2022 1:00am January 04, 2023 2:52pm furosemide 40 mg oral tablet (20 sources) Loop Diuretic Start: 04-05-2019 End: 04-10-2024 take 1 tablet by mouth once daily in the morning furosemide (LASIX) 40 mg tablet Take 1 tablet by mouth once daily. Take in morning 90 tablet 1 04/10/2024 Active Start: 08-13-2018 End: 04-10-2024 take 1 tablet by mouth once daily in the evening furosemide (LASIX) 20 mg tablet Take 1 tablet by mouth once daily. Take in evening 90 tablet 1 04/10/2024 Active Start: 08-13-2018 End: 08-28-2018 take 60 mg by mouth twice daily Furosemide Discontinue d 60 MG PO TWICE A DAY August 13, 2018 12:00am August 28, 2018 6:17pm Comment on above: Take 20 mg by mouth daily at bedtime. Take 1 tablet by kelin th once daily. Take in morning Take 1 tablet by kelin th once daily. Take in evening gabapentin 300 mg oral capsule (3 sources) Anti-epileptic Agent Start: 11-27-2016 gabapentin 300 mg oral capsule Dose : 300 mg = 1 cap(s), Oral, TID, # 270 cap(s) Start Date: 11/27/16 Status: Ordered 3 ml insulin glargine 100 unt/ml pen injector (20 sources) Insulin Analog Start: 12-06-2023 insulin glargine (LANTUS SOLOSTAR U-100 INSULIN) 100 unit/mL (3 mL) Indications: Diabetes mellitus type 2 with ketoacidosis, uncontrolled (HCC) Inject 40 units once daily 39 mL 3 12/06/2023 Active Start: 02-25-2023 inject 1 dose by sub cutaneous injection once daily at bedtime Lantus 100 units/mL10 ml vial solution Dose : 33 unit(s) =, Subcutaneous, qHS, 0 Refill(s) Start Date: 02/25/23 Status: Ordered Repeat number: 1 Start: 07-13-2022 End: 09-01-2022 Insulin Glargine (Lantus Michelle ostar U-100 Insulin) 100 unit/mL (3 mL) insulin pen Discontinued 33 UNIT SC AT BEDTIME September 01, 2022 3:09pm September 01, 2022 3:13pm Start: 04-24-2022 inject 1 dose by sub cutaneous injection once daily at bedtime Lantus Dose : 33 unit(s) =, Subcutaneous, qHS, 0 Refill(s) Start Date: 04/24/22 Status: Ordered Start: 04-24-2022 inject 1 dose by sub cutaneous injection once daily at bedtime Lantus Dose : 30 unit(s) =, Subcutaneous, qHS, 0 Refill(s) Start Date: 04/24/22 Status: Ordered Start: 01-21-2022 End: 07-13-2022 Insulin Glargine (Lantus Michelle ostar U-100 Insulin) 100 unit/mL (3 mL) insulin pen Discontinued 25 UNIT SC AT BEDTIME January 21, 2022 2:21pm July 13, 2022 1:57am Hold if glucose less than 130 mg/dl Start: 11-01-2019 End: 08-16-2024 Start: 11-01-2019 End: 01-21-2022 Insulin Glargine (Lantus Michelle ostar U-100 Insulin) 100 unit/mL (3 mL) insulin pen Discontinued 30 UNIT SC AT BEDTIME November 01, 2019 12:00am January 21, 2022 2:21pm Start: 11-01-2019 Insulin Glargi ne (Lantus Solostar U-100 Insulin) 100 unit/mL (3 mL) insulin pen Active 33 UNIT SC AT BEDTIME November 01, 2019 12:00am Comment on above: Inject 33 Units subc utaneously daily at bedtime. E11.65 3 ml insulin lispro 100 unt/ml pen injector (20 sources) Insulin Analog Start: 08-16-2024 Start: 06-12-2024 End: 08-11-2024 Start: 09-02-2022 Insulin Lispro (Humalog Kwikpen Insulin) 100 unit/mL insulin pen Active 15 UNIT SC THREE TIMES A DAY September 02, 2022 12:00am 180-220 +4 221-260 +6 261-300 8 >300 +10 Start: 01-13-2019 insulin lispro (HUMALOG KWIKPEN) 100 unit/mL Inject subcutaneously. 0 01/13/2019 Active Comment on above: Inject subcutaneously. iv contrast (will be provided with radiology test) (5 sources) Start: End: inject 1 dose intravenously once iv contrast (will be provided with radiology test) MRI Brain Inject, intravenously, once for 1 dose.No IV access, insert saline lock prior to beginning of sedation, infusion, injection of imaging exam.Discontinue saline lock post exam. If Pt. has a central line or IVAD, may access for administration according to line specific nursing protocol.Once exam is complete flush line and de-access according to line specific nursing protocol in the MR contrast administration guidelines link 1 Each 0 05/02/2023 05/03/2023 Active Start: 08-26-2021 End: 08-27-2021 inject 1 dose intravenously once iv contrast (will be provided with radiology test) MRI Brain Inject, intravenously, once for 1 dose.No IV access, insert saline lock prior to beginning of sedation, infusion, injection of imaging exam.Discontinue saline lock post exam. If Pt. has a central line or IVAD, may access for administration according to line specific nursing protocol.Once exam is complete flush line and de-access according to line specific nursing protocol in the MR contrast administration guidelines link 1 Each 0 08/26/2021 08/27/2021 Start: 08-26-2021 End: 08-27-2021 inject 1 dose intravenously once iv contrast (will be provided with radiology test) MRI Brain Inject, intravenously, once for 1 dose.No IV access, insert saline lock prior to beginning of sedation, infusion, injection of imaging exam.Discontinue saline lock post exam. If Pt. has a central line or IVAD, may access for administration according to line specific nursing protocol.Once exam is complete flush line and de-access according to line specific nursing protocol in the MR contrast administration guidelines link 1 Each 0 08/26/2021 08/27/2021 Active Comment on above: MRI Brain Inject, in travenously, once for 1 dose.No IV access, insert saline lock prior to beginning of sedation, infusion, injection of imaging exam.Discontinue saline lock post exam. If Pt. has a central line or IVAD, may access for administration according to line specific nursing protocol.Once exam is complete flush line and de-access according to line specific nursing protocol in the MR contrast administration guidelines link levoFLOXacin 750 mg oral tablet (7 sources) Quinolone Antimicrobial Start: 08-21-19 take 750 mg by mouth once daily Levofloxacin Active 750 MG PO DAILY August 20, 2021 5:18am Start: 03-23-2021 End: 05-05-2021 take 750 mg by mouth once daily Levofloxacin Active 750 MG PO DAILY August 20, 2021 5:18am linezolid 600 mg oral tablet (20 sources) Oxazolidinone Antibacterial Start: 08-16-2024 Start: 07-18-2022 End: 01-04-2023 Start: 01-19-2015 End: 01-20-2015 Start: 01-19-2015 End: 01-20-2015 take 600 mg by mouth every twelve hours Linezolid In Dextrose 5% Discontinued 600 MG PO EVERY 12 HOURS January 19, 2015 12:00am January 20, 2015 9:52am dont take w/Prozac lisinopril 5 mg oral tablet (20 sources) Angiotensin Converting Enzyme Inhibitor Start: 01-29-2021 End: 01-21-2022 take 1 tablet by mouth once lisinopril (ZESTRIL, PRINIVIL) 5 mg tablet Indications: 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 Per Dr. Ermias Salomon 02/02/2021 Active Start: 01-29-2021 End: 01-21-2022 Start: 11-27-2016 End: 01-29-2021 Comment on above: Take 1 tablet by kelin th once daily. Per Dr. Ermias Salomon loratadine 10 mg oral tablet (20 sources) Start: 08-24-2022 End: 09-28-2023 take 1 tablet by mouth once daily loratadine (CLARITIN) 10 mg tablet Indications: Seasonal allergic rhinitis, unspecified trigger Take 1 tablet by mouth once daily. 30 tablet 11 09/28/2023 Active Start: 11-23-2020 take 1 tablet by kelin th once daily loratadine (CLARITIN) 10 mg tablet Indications: Seasonal allergic rhinitis, unspecified trigger Take 1 tablet by mouth once daily. 30 tablet 11 11/23/2020 Active Start: 2019 End: 11-13-2019 Start: 08-28-2018 End: 11-01-2019 Comment on above: Take 1 tablet by kelin th once daily. metroNIDAZOLE 500 mg oral tablet (19 sources) Nitroimidazole Antimicrobial Start: 08-16-2024 Start: 07-18-2022 End: 09-01-2022 Start: 09-22-2021 metroNIDAZOLE (FLAGYL) 500 mg tablet Take 1 tablet by mouth at 9pm and take 1 tablet by mouth at 11pm the night before surgery. 2 tablet 0 09/22/2021 Suspended Comment on above: Take 1 tablet by kelin th at 9pm and take 1 tablet by mouth at 11pm the night before surgery. omeprazole 20 mg delayed release oral capsule (20 sources) Proton Pump Inhibitor Start: End: take 1 capsule by mouth once daily omeprazole (PRILOSEC) 20 mg capsule Take 1 capsule by mouth once daily. 90 capsule 04/01/2024 Active 24 hr oxybutynin chloride 15 mg extended release oral tablet (20 sources) Cholinergic Muscarinic Antagonist Start: End: take 1 tablet by mouth once daily oxybutynin ER (DITROPAN XL) 15 mg 24 hr Extended Rel Tab Indications: Encounter for care or replacement of suprapubic tube (HCC) Take 1 tablet by mouth once daily. 90 tablet 1 09/28/2023 Active Start: 04-05-2019 End: 2019 take 1 tablet by mouth every hour, then take 1 tablet by mouth once daily in the evening oxybutynin 15 mg/24 hr oral tablet, extended release Dose : 15 mg = 1 tab(s), Oral, qPM Start Date: 04/25/22 Status: Ordered Repeat number: 1 Comment on above: Take 1 tablet by kelin th once daily. oxyCODONE hydrochloride 5 mg oral tablet (20 sources) Opioid Agonist Start: 08-16-2024 Start: 10-06-2022 End: 01-04-2023 Start: 07-18-2022 End: 09-01-2022 Start: 07-18-2022 End: 09-01-2022 take 5 mg by mouth every four hours as needed Oxycodone Discontinued 5 MG PO EVERY 4 HOURS NEEDED 12 July 18, 2022 September 01, 2022 3:01pm Start: 02-19-2020 End: 02-26-2020 Start: 02-19-2020 End: 02-26-2020 take 5 mg by mouth every four hours as needed Oxycodone Discontinued 5 MG PO EVERY 4 HOURS NEEDED 30 7 February 19, 2020 February 26, 2020 12:02am Start: 01-15-2020 End: 01-18-2020 Start: 09-04-2018 End: 09-11-2018 Start: 09-04-2018 End: 09-11-2018 take 5-10 mg by mouth every four hours as needed Oxycodone Discontinued 5 - 10 MG PO EVERY 4 HOURS NEEDED 20 12September 04, 2018 12:00am September 11, 2018 12:09am predniSONE 20 mg oral tablet (3 sources) Start: 07-07-2021 take 60 mg by mouth once daily Prednisone Active 60 MG PO DAILY 18 July 07, 2021 11:37pm pregabalin 75 mg oral capsule (20 sources) Start: 05-02-2023 End: 01-05-2025 take 1 capsule by mouth twice daily pregabalin (LYRICA) 75 mg capsule Indications: Intractable chronic migraine with aura and without status migrainosus , Neuropathy , Paresthesias Take 1 capsule by mouth two times a day for 180 days. 60 capsule 5 07/09/2024 01/05/2025 Active Comment on above: Take 1 capsule by mo [facility] two times a day for 90 days. promethazine hydrochloride 25 mg oral tablet (20 sources) Phenothiazine Start: 07-31-2024 Start: 07-09-2019 End: 2019 Start: 12-18-2017 End: 01-18-2018 propranolol hydrochloride 20 mg oral tablet (20 sources) beta-Adrenergic Pan Start: 06-05-2022 End: 06-05-2022 propranolol Start: 06/05/22 9:00:00 EST, Dose = 10 mg, = 0.5 tab(s), Oral, 0, 06/05/22 1:39:00 EST Start Date: 06/05/22 Stop Date: 06/05/22 Status: Completed Start: 11-23-2020 End: 09-28-2023 take 1 tablet by mouth twice daily propranolol (INDERAL) 20 mg tablet Indications: Paroxysmal SVT (supraventricular tachycardia) ([facility]) Take 1 tablet by mouth two times a day. 180 tablet 1 09/28/2023 Active Start: 01-13-2020 End: 01-21-2022 Start: 01-13-2020 End: 01-21-2022 take 10 mg by mouth twice daily Propranolol Discontinued 10 MG PO TWICE A DAY January 13, 2020 12:00am January 21, 2022 2:21pm Start: 11-01-2019 End: 2019 take 20 mg by mouth twice daily Propranolol Discontinued 20 MG PO TWICE A DAY November 01, 2019 8:58am 2019 11:00am Start: 08-28-2018 End: 2019 Start: 08-28-2018 End: 11-01-2019 take 10 mg by mouth twice daily Propranolol Discontinued 10 MG PO TWICE A DAY August 28, 2018 12:00am November 01, 2019 9:00am Comment on above: Take 1 tablet by kelin twice daily. Take 1 tablet by kelin th two times a day. sodium chloride 0.154 meq/ml irrigation solution (20 sources) Start: 07-30-2020 sodium chloride irrig solution (NACL 0.9% IRRIGATION BOTTLE) To use for catheter irrigation daily or as needed. 1000 mL 11 07/30/2020 Active Comment on above: To use for catheter irrigation daily or as needed. topiramate 25 mg oral tablet (15 sources) Start: 07-15-2023 topiramate 25 mg oral tablet Dose : 25 mg = 1 tab(s), Oral, qHS Start Date: 07/15/23 Status: Ordered Start: 03-29-2023 take 1 tablet by kelin th once daily at bedtime topiramate (TOPAMAX) 25 mg tablet Take 1 tablet by mouth daily at bedtime. 90 tablet 1 03/29/2023 Active Comment on above: Take 1 tablet by kelin th daily at bedtime. traZODone hydrochloride 100 mg oral tablet (20 sources) Serotonin Reuptake Inhibitor Start: 1 End: 4 take 1 tablet by mouth once daily at bedtime traZODone (DESYREL) 100 mg tablet Take 1 tablet by mouth daily at bedtime. 90 tablet 1 04/10/2024 Active Start: 07-08-2019 End: 02-19-2020 Start: 07-08-2019 End: 02-19-2020 take 50 mg by mouth at bedtime Trazodone Discontinued 50 MG PO AT BEDTIME July 08, 2019 1:00am February 19, 2020 7:55am Start: 04-17-2013 End: 10-15-2013 Comment on above: Take 1 tablet by kelin th daily at bedtime. Urinary Bag (URINARY LEG BAG) kit (20 sources) Start: 09-20-2024 Urinary Bag (URINARY LEG BAG) kit Indications: Neurogenic bladder , Suprapubic catheter (HCC) Use as directed with suprapublic catheter. 4 kit 11 09/20/2024 Active Start: 12-11-2023 Urinary Bag (U RINARY LEG BAG) kit Indications: Neurogenic bladder , Suprapubic catheter (HCC) Use as directed with suprapublic catheter. 4 Kit 11 12/11/2023 Active Urinary Bag (UROSTOMY NIGHT BAG) misc (20 sources) Start: 09-20-2024 Urinary Bag (U ROSTOMY NIGHT BAG) [facility] Indications: Neurogenic bladder , Suprapubic catheter (HCC) Urinary Night Bag. Use as directed with suprapublic catheter. 4 each 09/20/2024 Active Start: 12-11-2023 Urinary Bag (U ROSTOMY NIGHT BAG) [facility] Indications: Neurogenic bladder , Suprapubic catheter (HCC) Urinary Night Bag. Use as directed with suprapublic catheter. 4 Each 12/11/2023 Active divalproex sodium 500 mg delayed release oral tablet (15 sources) Mood Stabilizer, Anti-epileptic Agent Start: 08-11-2024 Start: 07-09-[address] (DEPAKOTE) 500 mg EC tablet take 2 at bed for 5 days then 1 at bed for 5 days and stop. 15 tablet 07/09/2024 Active (11 sources) Start: 08-16-2024 Start: 09-01-2022 Start: 03-05-2021 Start: 04-17-2013 End: 06-17-2013 Completed/Discontinued Medications Medication Drug Class(es) Dates Sig (Normalized) Sig (Original) acetaminophen 325 mg / HYDROcodone bitartrate 5 mg oral tablet (20 sources) Opioid Agonist Start: 06-09-2024 End: 08-11-2024 Start: 02-03-2024 End: 02-06-2024 take 1 tablet by mouth every six hours as needed for pain [place] 325- 5 mg oral tablet Dose = 1 tab(s), Oral, q6h, PRN as needed for pain, X 3 day(s), # 12 tab(s), 0 Refill(s), Abdominal pain, 98.8 Start Date: 02/03/24 Stop Date: 02/06/24 Status: Ordered Start: 04-28-2021 End: 05-01-2021 take 1 tablet by mouth every eight hours as needed for pain [place] 325- 5 mg oral tablet Dose = 1 tab(s), Oral, q8h, PRN as needed for pain, X 3 day(s), # 9 tab(s), 0 Refill(s), Abdominal pain, 102.3 Start Date: 04/28/21 Stop Date: 05/01/21 Status: Ordered Start: 02-26-2019 End: 03-06-2019 Start: 02-26-2019 End: 03-06-2019 take 1 tablet by mouth every six hours as needed Hydrocodone-Acetaminophen Discontinued 1 TABLET PO EVERY 6 HOURS NEEDED 02 28February 26, 2019 March 06, 2019 12:08am Start: 11-24-2018 End: 11-27-2018 Start: 11-24-2018 End: 11-27-2018 take 1 tablet by mouth every six hours as needed Hydrocodone-Acetaminophen Discontinued 1 TABLET PO EVERY 6 HOURS NEEDED 02 28November 24, 2018 November 27, 2018 12:07am Start: 04-24-2018 End: 04-27-2018 Start: 04-24-2018 End: 04-27-2018 take 1 tablet by mouth every six hours as needed Hydrocodone-Acetaminophen Discontinued 1 TABLET PO EVERY 6 HOURS NEEDED 02 28April 24, 2018 1:00am April 27, 2018 1:17am Start: 03-03-2018 End: 03-06-2018 Start: 03-03-2018 End: 03-06-2018 take 1 tablet by mouth every six hours as needed Hydrocodone-Acetaminophen Discontinued 1 TABLET PO EVERY 6 HOURS NEEDED 02 28March 03, 2018 12:00am March 06, 2018 12:10am Start: 12-24-2017 End: 01-18-2018 Start: 12-24-2017 End: 01-18-2018 take 1 tablet by mouth every four hours as needed Hydrocodone-Acetaminophen Discontinued 1 - 2 TABLET PO EVERY 4 HOURS NEEDED December 24, 2017 12:00am January 18, 2018 2:24pm amoxicillin 500 mg oral capsule (14 sources) Penicillin-class Antibacterial Start: 04-26-2021 take 4 capsules by mouth every hour amoxicillin (POLYMOX, AMOXIL) 500 mg capsule TAKE 4 CAPSULES BY MOUTH ONE HOUR PRIOR TO DENTAL APPOINTMENT. 0 04/26/2021 Suspended Comment on above: TAKE 4 CAPSULES BY M OUTH ONE HOUR PRIOR TO DENTAL APPOINTMENT. amoxicillin 875 mg / clavulanate 125 mg oral tablet (20 sources) Penicillin-class Antibacterial Start: 11-22-2021 End: 02-09-2022 Start: 06-28-2021 take 1 tablet by kelin th every twelve hours Amoxicillin-Pot Clavulanate Active 1 TABLET PO Q12H June 28, 2021 2:37am Start: 09-04-2018 End: 09-09-2018 Start: 12-16-2017 End: 01-18-2018 Start: 12-16-2017 End: 01-18-2018 take 875 mg by mouth every twelve hours Amoxicillin-Pot Clavulanate Discontinued 875 MG PO Q12H December 16, 2017 12:00am January 18, 2018 2:23pm Comment on above: Take 1 tablet by kelin th twice daily. Anxiety Med (20 sources) Start: 04-17-2013 End: 06-17-2013 Anxiety Med Discontinued April 17, 2013 4:44pm June 17, 2013 9:57pm Start: 04-17-2013 End: 06-17-2013 Anxiety Med Discontinued Mar 12:00am June 17, 2013 8:57pm Start: 04-17-2013 End: 06-17-2013 Anxiety Med Discontinued Mar 1:00am June 17, 2013 9:57pm apixaban 5 mg oral tablet (20 sources) Factor Xa Inhibitor Start: 11-22-2023 End: 07-09-2024 Start: 11-22-2023 End: 01-31-2024 take 1 tablet by mouth every twelve hours ELIQUIS 5 mg tab(s) Take 1 tablet by mouth every 12 hours. 11/22/2023 01/31/2024 Discontinued aztreonam 1000 mg injection (5 sources) Monobactam Antibacterial Start: 02-25-2023 Azactam 1 g injectio n Dose : 1 gram(s) =, Intramuscular, q8hr, 0 Refill(s), 97.9 Start Date: 02/25/23 Status: Ordered Benzocaine (1 source) Standardized Chemical Allergen Start: 03-25-2024 End: 03-25-2024 1 [place], TOPICAL, DIRECTED, Starting on Mon03/25/24 at 0900, Until Mon03/25/24 at 1259, Dosing as directed for intraprocedural use only - Pharmaceutical Waste: Aerosol -, Intraprocedure Blood-Glucose Meter (ACCU-CHEK HOPE) misc (20 sources) Start: 12-05-2017 End: 02-09-2022 Blood-Glucose Meter (ACCU-CHEK HOPE) misc Dispense 1 meter kit. Dx: Other DM Code E13.29 1 Each 0 12/05/2017 02/09/2022 Discontinued Start: 12-05-2017 Blood-Glucose Meter (ACCU-CHEK HOPE) misc Dispense 1 meter kit. Dx: Other DM Code E13.29 1 Each 0 12/05/2017 Suspended Start: 12-05-2017 Blood-Glucose Meter (ACCU-CHEK HOPE) misc Dispense 1 meter kit. Dx: Other DM Code E13.29 1 Each 0 12/05/2017 Active Comment on above: Dispense 1 meter kit . Dx: Other DM Code E13.29 Blood-Glucose Meter,Continuous (DEXCOM G7 CRIMINAL INTELLIGENCE ANALYST) misc (2 sources) Start: End: Blood-Glucose Meter,Continuous (DEXCOM G7 CRIMINAL INTELLIGENCE ANALYST) misc DISPENSE ONE CRIMINAL INTELLIGENCE ANALYST KIT. USE FOR CONTINUOUS GLUCOSE MONITORING. MULTIPLE INSULIN INJECTIONS. E11.9 1 Each 0 12/06/2023 12/06/2023 Discontinued Blood-Glucose Sensor (DEXCOM G7 SENSOR) tara (2 sources) Start: End: Blood-Glucose Sensor (DEXCOM G7 SENSOR) tara CHANGE SENSOR EVERY 10 DAYS, USE FOR CONTINUOUS GLUCOSE MONITORING. MULTIPLE INSULIN INJECTIONS. E11.9 9 Each 3 12/06/2023 12/06/2023 Discontinued calcium chloride 0.0014 meq/ml / potassium chloride 0.004 meq/ml / sodium chloride 0.103 meq/ml / sodium lactate 0.028 meq/ml injectable solution (1 source) Start: End: take 30 mL intravenously every hour 30 mL/hr, INTRAVENOUS, CONTINUOUS, Starting on Mon03/25/24 at 0830, Until Mon03/25/24 at 0923, Preprocedure cefadroxil 500 mg oral capsule (20 sources) Cephalosporin Antibacterial Start: End: Start: 02-17-2015 End: 02-28-2015 Start: 02-17-2015 End: 02-28-2015 take 500 mg by mouth twice daily Cefadroxil Discontinued 500 MG PO TWICE A DAY February 17, 2015 12:00am February 28, 2015 3:42pm ciprofloxacin 500 mg oral ta blet (20 sources) Quinolone Antimicrobial Start: 02-03-2024 End: 08-11-2024 Start: 08-13-2023 End: 10-07-2023 Start: 07-20-2023 End: 07-27-2023 ciprofloxacin 500 mg oral ta blet Dose : 500 mg = 1 tab(s), Oral, q12h, X 7 day(s), # 14 tab(s), 0 Refill(s), 07/27/23 1:20:00 AM EST, 97.7 Start Date: 07/20/23 Stop Date: 07/27/23 Status: Ordered Start: 08-16-2022 End: 01-04-2023 Start: 04-11-2022 End: 07-18-2022 Start: 03-28-2016 End: 04-03-2016 clindamycin 300 mg oral caps ule (20 sources) Lincosamide Antibacterial Start: 04-11-2022 End: 07-18-2022 Start: 03-22-2022 End: 04-01-2022 clindamycin 150 mg oral caps ule Dose : 450 mg = 3 cap(s), Oral, q8h, X 10 day(s), # 90 cap(s), 0 Refill(s), 04/01/22 19:27:00 EDT, 90 Start Date: 03/22/22 Stop Date: 04/01/22 Status: Ordered Start: 02-09-2022 End: 02-19-2022 take 1 capsule by mouth four times daily clindamycin (CLEOCIN) 300 mg capsule Take 1 capsule by mouth four times daily for 10 days. 40 capsule 0 02/09/2022 02/19/2022 Active Start: 06-28-2021 take 1 capsule by [facility] every six hours Clindamycin Hcl (Cleocin Hcl) 300 MG capsule Active 300 MG PO EVERY 6 HOURS 40 June 28, 2021 2:12pm Start: 12-20-2017 End: 01-18-2018 Comment on above: Take 1 capsule by [facility] four times daily for 10 days. dicyclomine hydrochloride 20 mg oral tablet (3 sources) Anticholinergic Start: 12-28-2018 End: 01-04-2019 dicyclomine 20 mg oral tablet Dose : 20 mg = 1 tab(s), Oral, QID, PRN abdominal discomfort, # 28 tab(s), 0 Refill(s) Start Date: 12/28/18 Stop Date: 01/04/19 Status: Ordered diphenhydrAMINE (1 source) Histamine-1 Receptor Antagonist Start: 03-25-2024 End: 03-25-2024 12.5-50 mg, INTRAVENOUS, DIRECTED, Starting on Mon03/25/24 at 0900, Until Mon03/25/24 at 1259, DOSING DIRECTED BY PHYSICIAN FOR PROCEDURAL SEDATION ONLY, Intraprocedure doxycycline monohydrate 100 mg oral capsule (20 sources) Tetracycline-class Drug Start: 02-02-2023 End: 08-13-2023 Start: 08-16-2022 take 100 mg by mouth twice daily Doxycycline Hyclate Active 100 MG PO TWICE A DAY August 16, 2022 12:00am Start: 07-04-2022 End: 07-14-2022 doxycycline monohydrate 100 mg oral capsule Dose : 100 mg = 1 cap(s), PO, BID, X 10 day(s), # 20 cap(s), 0 Refill(s), 07/14/22 0:05:00 EST, 92.2 Start Date: 07/04/22 Stop Date: 07/14/22 Status: Ordered Start: 01-21-2022 End: 02-28-2022 doxycycline hyclate (VIBRAMY SHELLI) 100 mg capsule TWICE A DAY 0 01/21/2022 02/28/2022 Discontinued (Course of therapy completed) Start: 11-15-2021 End: 11-22-2021 Start: 10-02-2019 End: 2019 Start: 09-04-2018 End: 09-09-2018 Comment on above: TWICE A DAY ertapenem 1000 mg injection (4 sources) Penem Antibacterial Start: 12-22-2022 ertapenem (INVANZ) 1 g in NaCl 0.9% 100 mL Indications: Pyelonephritis Inject 100 mL intravenously every 24 hours for 10 days. 1000 mL 0 12/22/2022 Active Comment on above: Inject 100 mL intrav enously every 24 hours for 10 days. 1 ml fentaNYL 0.05 mg/ml injection (1 source) Opioid Agonist Start: 03-25-2024 End: 03-25-2024 25-100 mcg, INTRAVENOUS, DIRECTED, Starting on Mon03/25/24 at 0900, Until 03/25/24 at 1259, DOSING DIRECTED BY PHYSICIAN FOR PROCEDURAL SEDATION ONLY, Intraprocedure FLUoxetine 20 mg oral capsule (20 sources) Serotonin Reuptake Inhibitor Start: 07-20-2013 End: 10-15-2013 Start: 04-17-2013 End: 06-17-2013 fluticasone propionate 0.05 mg/actuat metered dose nasal spray (20 sources) Corticosteroid Start: 2019 End: 11-13-2019 Start: 2019 End: 11-13-2019 take 1 spray(s) nasal route once daily Fluticasone Propionate (Allergy Relief (Fluticasone)) 50 mcg/actuation spray,suspension Discontinued 2 SPRAY INTRANASAL DAILY 2019 12:00am November 13, 2019 3:04pm administer into each nostril Start: 02-21-2019 take 2 spray(s) by m out once daily fluticasone (FLONASE) 50 mcg/actuation nasal spray Indications: Seasonal allergic rhinitis, unspecified trigger Use 2 Sprays in each nostril once daily. Rinse mouth after use. 1 Bottle 3 02/21/2019 Active Comment on above: Use 2 Sprays in each nostril once daily. Rinse mouth after use. glimepiride 2 mg oral tablet (20 sources) Sulfonylurea Start: 03-31-2021 End: 02-10-2024 Start: 11-07-2017 End: 01-18-2018 Comment on above: Take 1 tablet by kelin th twice daily with meals. Per Endo: Dr. Monson hydroCHLOROthiazide 12.5 mg oral capsule (20 sources) Thiazide Diuretic Start: 07-20-2013 End: 10-15-2013 3 ml insulin aspart, human 1 00 unt/ml pen injector (20 sources) Insulin Analog Start: 02-10-2024 End: 08-16-2024 Start: 12-06-2023 insulin aspart , niacinamide, (FIASP FLEXTOUCH U-100 INSULIN) 100 unit/mL (3 mL) pen Indications: Diabetes mellitus type 2 with ketoacidosis, uncontrolled (HCC) Inject 20 units with meals (three times daily) PLUS SS#2 (2 units for every 50 over 150 PRE MEAL blood sugar) TDD~90 units daily 81 mL 3 12/06/2023 Active Start: 09-01-2022 End: 09-02-2022 Insulin Aspart (Niacinamide) Discontinued 15 UNIT SC THREE TIMES A DAY 45 September 01, 2022 3:11pm September 02, 2022 8:35am 180-220 +4 221-260 +6 261-300 8 >300 +10 Start: 04-24-2022 Fiasp FlexTouc h 100 units/mL injectable solution See Instructions, Sliding scale TIDAC, 0 Refill(s) Start Date: 04/25/22 Status: Ordered Repeat number: 1 Start: 01-29-2021 End: 12-06-2023 Comment on above: Inject 18 Units subc utaneously three times daily before meals. (Includes SS # 2 QAC -> Per Umm, Dr. Monson) MAX TDD = 55 UNITS / DAY. E11.65 insulin lispro (HUMALOG KWIKPEN) 100 unit/mL (7 sources) Start: 01-13-2019 insulin lispro (HUMALOG KWIKPEN) 100 unit/mL Inject subcutaneously. 0 01/13/2019 Active Comment on above: Inject subcutaneousl y. 3 ml liraglutide 6 mg/ml pen injector (20 sources) GLP-1 Receptor Agonist Start: 12-27-2018 Victoza 18 mg/3 mL subcutaneous Pen 0 Refill(s) Start Date: 12/27/18 Status: Ordered Start: 07-03-2018 End: 11-01-2019 Start: 07-03-2018 End: 01-13-2019 Liraglutide (Victoza 2-Kenneth) 0.6 MG/0.1 ML Pen.Injctr Discontinued 1.2 MG SQ DAILY July 03, 2018 1:00am January 13, 2019 7:43am 18mg/3ml diabetes magnesium hydroxide 80 mg/ml oral suspension (20 sources) Start: 10-07-2021 End: 10-09-2023 take 30 mL by mouth every six hours magnesium hydroxide (MOM) 400 mg/5 mL suspension Take 30 mL by mouth every 6 hours. 0 10/07/2021 10/09/2023 Discontinued Comment on above: Take 30 mL by mouth every 6 hours. 24 hr metFORMIN hydrochloride 500 mg extended release oral tablet (20 sources) Biguanide Start: 2019 End: 11-13-2019 Start: 02-18-2019 End: 11-01-2019 Start: 11-27-2016 metFORMIN 500 mg oral tablet Dose : 500 mg = 1 tab(s), Oral, BID, # 180 tab(s) Start Date: 11/27/16 Status: Ordered Start: 06-01-2016 End: 06-19-2016 take 1000 mg by mouth once daily Metformin Discontinued 1000 MG PO DAILY 0 June 01, 2016 12:45pm June 19, 2016 9:32pm Start: 02-14-2015 End: 01-13-2019 Start: 02-14-2015 End: 06-01-2016 take 500 mg by mouth once daily Metformin Discontinued 500 MG PO DAILY February 14, 2015 12:00am June 01, 2016 12:45pm 5 ml midazolam 1 mg/ml injection (1 source) Benzodiazepine Start: 03-25-2024 End: 03-25-2024 1-5 mg, INTRAVENOUS, DIRECTED, Starting on Mon03/25/24 at 0900, Until Mon03/25/24 at 1259, DOSING DIRECTED BY PHYSICIAN FOR PROCEDURAL SEDATION ONLY, Intraprocedure naproxen 500 mg oral tablet (20 sources) Nonsteroidal Anti-inflammatory Drug Start: 01-05-2020 End: 01-13-2020 Start: 06-04-2019 take 1 tablet by kelin every twelve hours as needed for pain naproxen 500 mg oral tablet Take 1 tablet by mouth every 12 hours as needed (pain/inflammation, take with food.). Start Date: 06/04/19 Status: Ordered neomycin sulfate 500 mg oral tablet (2 sources) Aminoglycoside Antibacterial Start: 09-22-2021 neomycin 500 mg tablet Take 2 tablets by mouth at 9pm and take 2 tablets by mouth at 11pm the night before surgery. 4 tablet 0 09/22/2021 Suspended Comment on above: Take 2 tablets by mo [facility] at 9pm and take 2 tablets by mouth at 11pm the night before surgery. nitrofurantoin, macrocrystals 25 mg / nitrofurantoin, monohydrate 75 mg oral capsule (20 sources) Nitrofuran Antibacterial Start: 06-02-2024 End: 06-16-2024 Start: 02-02-2023 End: 08-13-2023 Start: 11-15-2015 End: 11-18-2015 ondansetron 4 mg disintegrating oral tablet (20 sources) Serotonin-3 Receptor Antagonist Start: 11-22-2022 End: 11-27-2022 Zofran 4 mg oral tablet Dose : 4 mg = 1 tab(s), Oral, q8h, X 5 day(s), # 15 tab(s), 0 Refill(s), 11/27/22 2:26:00 EDT, UTI - Urinary tract infection Start Date: 11/22/22 Stop Date: 11/27/22 Status: Ordered Start: 03-22-2022 End: 06-09-2024 Start: 08-20-2021 take 4 mg by mouth e very six hours Ondansetron Active 4 MG PO EVERY 6 HOURS August 20, 2021 12:00am Start: 2019 End: 11-13-2019 take 8 mg by mouth once Ondansetron Discontinued 8 M G PO ONCE 2019 12:00am November 13, 2019 3:03pm Start: 05-24-2019 End: 11-01-2019 Start: 05-24-2019 End: 11-01-2019 take 4 mg by mouth every eight hours as needed Ondansetron Discontinued 4 MG PO EVERY 8 HOURS NEEDED May 24, 2019 1:00am November 01, 2019 8:59am Start: 11-19-2016 End: 11-13-2019 take 1 tablet by mouth every eight hours as needed ondansetron orally disintegrating (ZOFRAN ODT) 8 mg disintegrating tablet Take 8 mg by mouth every 8 hours as needed for nausea/vomiting. 11/19/2016 Active Comment on above: 8 mg as needed. phenazopyridine hydrochlorid e 200 mg oral tablet (20 sources) Start: 2019 End: 11-13-2019 Start: 12-27-2018 End: 11-07-2023 Start: 12-27-2018 take 1 tablet by kelin th every eight hours as needed for muscle spasms phenazopyridine 200 mg oral tablet TAKE 1 TABLET EVERY 8 HOURS NEEDED FOR BLADDER spasms Start Date: 12/27/18 Status: Ordered Comment on above: TWICE DAILY NEEDE D polyethylene glycol 3350 170 00 mg powder for oral solution (20 sources) Osmotic Laxative Start: 04-12-2018 End: 04-13-2018 polyethylene glycol 3350 236 000 mg / potassium chloride 2970 mg / sodium bicarbonate 6740 mg / sodium chloride 5860 mg / sodium sulfate 19253 mg powder for oral solution (20 sources) Osmotic Laxative Start: 04-13-2018 End: 04-27-2018 pseudoephedrine hydrochlorid e 30 mg oral capsule (20 sources) alpha-Adrenergic Agonist Start: 2019 End: 11-13-2019 Start: 2019 End: 11-13-2019 take 1 capsule by mouth once Pseudoephedrine Hcl (Nasa l Decongestant (Pseudoeph)) 30 mg capsule (abuse-resistant) Discontinued 30 MG PO ONCE 2019 12:00am November 13, 2019 3:04pm Start: 01-21-2018 End: 11-01-2019 Comment on above: Take 30 mg by mouth as needed. psyllium 400 mg oral capsule (20 sources) Start: 2019 End: 11-13-2019 Start: 04-05-2019 End: 11-01-2019 Start: 04-05-2019 End: 11-01-2019 Psyllium Husk Discontinued 1 5 ML PO NEEDED April 05, 2019 1:00am November 01, 2019 8:58am psyllium husk (METAMUCIL ORA L) (20 sources) End: 02-09-2022 psyllium husk (METAMUCIL ORA L) Take by mouth as needed. 0 02/09/2022 Discontinued psyllium husk (M ETAMUCIL ORAL) Take by mouth as needed. 0 Suspended psyllium husk (M ETAMUCIL ORAL) Take by mouth as needed. 0 Active Comment on above: Take by mouth as nee ded. sulfamethoxazole 800 mg / trimethoprim 160 mg oral tablet (20 sources) Dihydrofolate Reductase Inhibitor Antibacterial, Sulfonamide Antimicrobial Start: 07-31-2024 End: 08-11-2024 Start: 11-22-2023 End: 11-24-2023 take 1 tablet by mouth twice daily Bactrim DS 800 mg-160 mg oral tablet Dose = 1 tab(s), Oral, BID, X 2 day(s), # 4 tab(s), 0 Refill(s), Pharmacy: [id number], 155, cm, 11/18/23 9:54:00 EDT, Height, 108.4, kg, 11/18/23 9:54:00 EDT, Dosing Weight Start Date: 11/22/23 Stop Date: 11/24/23 Status: Ordered Start: 04-21-2023 End: 06-09-2024 Start: 04-21-2023 End: 08-13-2023 take 1 tablet by mouth twice daily Sulfamethoxazole-Trimethoprim (Bactrim Ds) 800-160 mg tablet Discontinued 1 TABLET PO TWICE A DAY 17 03April 21, 2023 1:00am August 13, 2023 8:20pm Start: 07-18-2022 End: 01-04-2023 Start: 07-18-2022 End: 01-04-2023 take 1 tablet by mouth twice daily Sulfamethoxazole-Trimethoprim (Bactrim Ds) 800-160 mg tablet Discontinued 1 TABLET PO TWICE A DAY 09 12August 19, 2022 12:00am January 04, 2023 2:54pm Start: 04-27-2022 End: 05-07-2022 take 1 tablet by mouth every twelve hours Bactrim DS 800 mg-160 mg oral tablet 369.6 mg, Oral, q12h, Dosage expressed as trimethoprim, X 10 day(s), # 20 tab(s), 0 Refill(s), Pharmacy: [id number], 154.94, cm, 04/24/22 5:33:00 EST, Height, 92.4 Start Date: 04/27/22 Stop Date: 05/07/22 Status: Ordered Start: 09-17-2021 take 1 tablet by kelin th twice daily Sulfamethoxazole-Trimethoprim Active 1 TABLET PO TWICE A DAY September 17, 2021 4:48pm Start: 06-04-2019 take 1 tablet by kelin th twice daily sulfamethoxazole-trimethoprim 800 mg-160 mg oral tablet TAKE 1 TABLET BY MOUTH TWICE DAILY UNTIL GONE. Start Date: 06/04/19 Status: Ordered Start: 12-13-2013 End: 12-19-2013 Start: 12-13-2013 End: 12-19-2013 take 2 tablets by mouth twice daily Sulfamethoxazole-Trimethoprim Discontinued 2 TABLET PO TWICE A DAY 38 December 13, 2013 12:00am December 19, 2013 10:54am Comment on above: Take 1 tablet by kelin th every 12 hours. vancomycin 250 mg oral capsule (7 sources) Glycopeptide Antibacterial Start: End: take 1 capsule by mouth four times daily vancomycin (VANCOCIN) 250 mg capsule Take 250 mg by mouth four times daily. 0 11/22/2023 12/06/2023 Start: 11-22-2023 End: 12-06-2023 take 1 dose by mouth four times daily vancomycin 25 mg/mL ORAL solution Dose : 125 mg = 5 mL, Oral, QID, X 14 day(s), # 280 mL, 0 Refill(s), 12/06/23 10:52:00 AM EDT, Pharmacy: [id number], 155, cm, 11/18/23 9:54:00 EDT, Height, 108.4, kg, 11/18/23 9:54:00 EDT, Dosing Weight Start Date: 11/22/23 Stop Date: 12/06/23 Status: Ordered Zofran ODT 4 mg oral tablet, disintegrating (3 sources) Start: 12-28-2018 End: 12-31-2018 Zofran ODT 4 mg oral tablet, disintegrating Dose : 4 mg = 1 tab(s), Oral, TID, # 9 tab(s), 0 Refill(s) Start Date: 12/28/18 Stop Date: 12/31/18 Status: Ordered zolpidem tartrate 10 mg oral tablet (20 sources) gamma-Aminobutyri c Acid-ergic Agonist Start: 09-15-2017 End: 01-18-2018 Start: 09-15-2017 End: 01-18-2018 take 10 mg by mouth at bedtime Zolpidem Discontinued 1 0 MG PO AT BEDTIME September 15, 2017 12:00am January 18, 2018 2:24pm Problems Active Problems Problem Classification Problem Date Documented Da te Episodic/Chronic Abdominal hernia (20 sources) Incisional hernia with obstruction, without gangrene; Translations: [Umbilical hernia] Onset: 8 09-17-2017 Episodic Acute and unspecified renal failure (20 sources) Injury of kidney; Translations: [Acute kidney failure, unspecified] 09-26-2020 Episodic Allergic reactions (20 sources) Contact dermatitis; Translations: [Unspecified contact dermatitis, unspecified cause] Onset: 2 09-30-2021 Episodic Anxiety disorders (20 sources) Anxiety; Translations: [Anxiety disorder, unspecified] Onset: 2 07-28-2021 Chronic Bacterial infection; unspecified site (5 sources) Therapy failure due to antibiotic resistance; Translations: [Resistance to unspecified antibiotic] Onset: 5 08-12-2024 Episodic Blindness and vision defects (2 sources) Bilateral myopia of eyes; Translations: [Myopia, bilateral] 05-03-2024 Episodic Cardiac dysrhythmias (20 sources) Paroxysmal supraventricular tachycardia; Translations: [Supraventricular tachycardia] Onset: 8 07-03-2017 Chronic Chronic kidney disease (17 sources) Chronic kidney disease; Translations: [Chronic kidney disease, unspecified] 01-13-2022 Chronic Chronic ulcer of skin (20 sources) Non-pressure chronic ulcer of left heel and midfoot with fat layer exposed; Translations: [Non-pressure chronic ulcer of left heel or midfoot with fat layer exposed] Onset: 5 07-13-2022 Chronic Complication of device; implant or graft (20 sources) Mechanical complication of suprapubic catheter; Translations: [Breakdown (mechanical) of cystostomy catheter, initial encounter] 07-08-2020 Episodic Diabetes mellitus with complications (20 sources) Type 2 diabetes mellitus; Translations: [Type 2 diabetes mellitus with other diabetic kidney complication] Onset: 6 Resolved: 2 02-02-2021 Chronic Diabetes mellitus without complication (20 sources) Diabetes mellitus; Translations: [Type 2 diabetes mellitus] Onset: 2 11-27-2016 Chronic Diabetes mellitus without complication (20 sources) Hyperglycemia; Translations: [Hyperglycemia, unspecified] 06-03-2020 Episodic Diseases of white blood cells (20 sources) Leukocytosis; Translations: [Elevated white blood cell count, unspecified] Onset: 5 12-12-2022 Chronic Disorders of lipid metabolism (20 sources) Mixed hyperlipidemia; Translations: [Mixed hyperlipidemia] Onset: 8 02-28-2018 Chronic E Codes: Adverse effects of medical drugs (20 sources) Adverse reaction to drug; Translations: [Adverse effect of unspecified drugs, medicaments and biological substances, initial encounter] Episodic E Codes: Fall (10 sources) Fall; Translations: [Unspecified fall, initial encounter] Onset: 4 01-29-2023 Episodic Essential hypertension (20 sources) Essential hypertension; Translations: [Essential (primary) hypertension] Onset: 9 06-24-2019 Chronic Fever of unknown origin (20 sources) Fever; Translations: [Fever, unspecified] Onset: 3 07-13-2022 Episodic Gastrointestinal hemorrhage (20 sources) Hematochezia; Translations: [Melena] 04-12-2021 Episodic Genitourinary symptoms and ill-defined conditions (20 sources) Suprapubic urinary catheter in situ; Translations: [Other cystostomy status] Onset: 4 06-25-2020 Chronic Headache; including migraine (20 sources) Migraine without aura, not refractory ; Translations: [Migraine without aura, not intractable, without status migrainosus] Onset: 7 Resolved: 8 02-28-2018 Chronic Headache; including migraine (3 sources) Headache; Translations: [Headache, unspecified] Onset: 2 Episodic Headache; including migraine (1 source) Headache; including migraine; Translations: [Headache, unspecified] Onset: 5 Immunizations and screening for infectious disease (20 sources) Suspected disease caused by 2019-nCoV; Translations: [Suspected COVID-19 virus infection] 01-23-2020 Episodic Infective arthritis and osteomyelitis (except that caused by tuberculosis or sexually transmitted disease) (20 sources) Osteomyelitis of forefoot; Translations: [Osteomyelitis, unspecified] 03-30-2020 Chronic Intracranial injury (20 sources) Concussion with no loss of consciousness; Translations: [Concussion without loss of consciousness, initial encounter] 03-08-2018 Episodic Miscellaneous mental health disorders (20 sources) Primary insomnia; Translations: [Primary insomnia] Onset: 6 02-17-2016 Chronic Mood disorders (20 sources) Dysthymia; Translations: [Dysthymic disorder] Onset: 2 Resolved: 4 05-24-2021 Chronic Nervous system congenital anomalies (20 sources) Spina bifida; Translations: [Lipomeningocele] Onset: 4 11-27-2016 Chronic Nervous system congenital anomalies (20 sources) H/O: musculoskeletal disease; Translations: [Personal history of other specified (corrected) congenital malformations of nervous system and sense organs] 03-08-2018 Episodic Noninfectious gastroenteritis (1 source) Gastroenteritis; Translations: [Noninfective gastroenteritis and colitis, unspecified] Episodic Open wounds of extremities (20 sources) Amputated big toe; Translations: [Complete traumatic amputation of left great toe, initial encounter] Onset: 1 06-25-2020 Chronic Open wounds of extremities (20 sources) Open wound, heel; Translations: [Unspecified open wound, unspecified foot, initial encounter] 03-02-2019 Episodic Other aftercare (20 sources) Wound finding; Translations: [Encounter for other specified aftercare] 02-27-2019 Episodic Other aftercare (1 source) Patient encounter status; Translations: [Other energy technician (current) drug therapy] 09-28-2023 Episodic Other aftercare (3 sources) Long-term current use of anticoagulant; Translations: [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] 02-18-2024 Episodic Other bone disease and musculoskeletal deformities (20 sources) History of amputation of left great toe; Translations: [Acquired absence of left great toe] Onset: 1 04-10-2024 Chronic Other circulatory disease (2 sources) Feeling of lump in throat; Translations: [Other specified symptoms and signs involving the circulatory and respiratory systems] Episodic Other connective tissue disease (2 sources) Weakness of face muscles; Translations: [Facial weakness] Episodic Other connective tissue disease (20 sources) Muscle pain; Translations: [Myalgia, unspecified site] 06-12-2021 Episodic Other connective tissue disease (20 sources) Recurrent falls ; Translations: [Repeated falls] 03-08-2018 Episodic Other connective tissue disease (1 source) Pain in left arm; Translations: [Pain in left arm] Onset: 4 Episodic Other diseases of bladder and urethra (20 sources) Neurogenic bladder; Translations: [Neuromuscular dysfunction of bladder, unspecified] Onset: 5 11-27-2016 Chronic Other diseases of bladder and urethra (8 sources) Neurogenic dysfunction of the urinary bladder; Translations: [Neuromuscular dysfunction of bladder, unspecified] Onset: 2 Chronic Other diseases of bladder and urethra (1 source) Neuromuscular dysfunction of bladder, unspecified; Translations: [Neurogenic bladder] Onset: 3 Chronic Other diseases of kidney and ureters (3 sources) Ureteritis; Translations: [Other specified disorders of kidney and ureter] 02-18-2024 Chronic Other diseases of kidney and ureters (17 sources) Acute renal insufficiency; Translations: [Disorder of kidney and ureter, unspecified] 12-04-2021 Episodic Other disorders of stomach and duodenum (20 sources) Gastroparesis syndrome; Translations: [Gastroparesis] 05-13-2021 Episodic Other eye disorders (1 source) Dry eye syndrome of left eye; Translations: [Dry eye syndrome of left lacrimal gland] 05-03-2024 Episodic Other female genital disorders (20 sources) Abnormal vaginal bleeding; Translations: [Abnormal uterine and vaginal bleeding, unspecified] Onset: 0 01-01-2020 Chronic Other female genital disorders (1 source) Abnormal uterine bleeding; Translations: [Abnormal uterine and vaginal bleeding, unspecified] 05-02-2023 Chronic Other gastrointestinal disorders (20 sources) Neurogenic bowel; Translations: [Neurogenic bowel, not elsewhere classified] Onset: 6 02-17-2016 Chronic Other gastrointestinal disorders (20 sources) Colostomy present; Translations: [Encounter for attention to colostomy] Onset: 2 Chronic Other gastrointestinal disorders (1 source) Colostomy status; Translations: [Colostomy in place (HCC)] Onset: 3 Chronic Other gastrointestinal disorders (1 source) Personal history of other diseases of the digestive system; Translations: [Personal history of other diseases of the digestive system] Onset: 8 Episodic Other gastrointestinal disorders (20 sources) Chronic constipation; Translations: [Other constipation] 04-12-2021 Episodic Other gastrointestinal disorders (20 sources) Obstipation; Translations: [Constipation, unspecified] 05-13-2021 Episodic Other gastrointestinal disorders (1 source) Functional disorder of intestine; Translations: [Functional intestinal disorder, unspecified] Episodic Other gastrointestinal disorders (2 sources) Pharyngeal dysphagia; Translations: [Dysphagia, pharyngeal phase] Episodic Other gastrointestinal disorders (1 source) Esophageal dysphagia; Translations: [Other dysphagia] 04-10-2024 Episodic Other hematologic conditions (5 sources) Splenic infarction; Translations: [Infarction of spleen] Episodic Other liver diseases (20 sources) Steatosis of liver; Translations: [Fatty (change of) liver, not elsewhere classified] Onset: 0 03-11-2020 Chronic Other lower respiratory disease (20 sources) Dyspnea; Translations: [Dyspnea, unspecified] 01-23-2020 Episodic Other nervous system disorders (20 sources) Neuropathy; Translations: [Polyneuropathy, unspecified] Onset: 5 02-28-2018 Chronic Other nervous system disorders (20 sources) Chronic pain; Translations: [Other chronic pain] Onset: 5 06-24-2019 Chronic Other nervous system disorders (1 source) Polyneuropathy; Translations: [Polyneuropathy, unspecified] Chronic Other nervous system disorders (1 source) Polyneuropathy, unspecified; Translations: [Neuropathy] Onset: 4 Chronic Other nervous system disorders (20 sources) Manley's palsy; Translations: [Manley's palsy] Episodic Other nervous system disorders (1 source) Abnormal reflex; Translations: [Abnormal reflex] 05-02-2023 Episodic Other nutritional; endocrine; and metabolic disorders (20 sources) Body mass index 40+ - severely obese; Translations: [Morbid (severe) obesity due to excess calories] Onset: 5 07-26-2021 Chronic Other nutritional; endocrine; and metabolic disorders (20 sources) Hypomagnesemia; Translations: [Hypomagnesemia] Onset: 2 10-07-2021 Chronic Other nutritional; endocrine; and metabolic disorders (20 sources) Obese class II; Translations: [Obesity, unspecified] Onset: 5 08-24-2022 Chronic Other nutritional; endocrine; and metabolic disorders (2 sources) Obesity; Translations: [Obesity, unspecified] 05-02-2023 Chronic Other nutritional; endocrine; and metabolic disorders (1 source) Morbid (severe) obesity due to excess calories; Translations: [Morbid (severe) obesity due to excess calories] Onset: 5 Chronic Other nutritional; endocrine; and metabolic disorders (1 source) Body mass index (BMI) 40.0-44.9, adult; Translations: [Body mass index [BMI] 40.0-44.9, adult] Onset: 5 Chronic Other nutritional; endocrine; and metabolic disorders (1 source) Hypomagnesemia; Translations: [Hypomagnesemia] Onset: 3 Chronic Other nutritional; endocrine; and metabolic disorders (20 sources) H/O: diabetes mellitus; Translations: [Personal history of other endocrine, nutritional and metabolic disease] 04-29-2021 Episodic Other screening for suspected conditions (not mental disorders or infectious disease) (2 sources) Imaging result abnormal; Translations: [Abnormal findings on diagnostic imaging of other specified body structures] 10-03-2023 Chronic Other upper respiratory disease (1 source) Seasonal allergic rhinitis; Translations: [Other seasonal allergic rhinitis] 09-28-2023 Chronic Other upper respiratory disease (20 sources) Anterior epistaxis; Translations: [Epistaxis] 04-29-2021 Episodic Pneumonia (except that caused by tuberculosis or sexually transmitted disease) (20 sources) Viral pneumonia; Translations: [Viral pneumonia, unspecified] 01-23-2020 Episodic Residual codes; unclassified (1 source) Obstructive sleep apnea syndrome; Translations: [Obstructive sleep apnea (adult) (pediatric)] 05-02-2023 Chronic Residual codes; unclassified (1 source) Obstructive sleep apnea (adult) (pediatric); Translations: [Obstructive sleep apnea] Onset: Chronic Residual codes; unclassified (20 sources) Edema of lower extremity; Translations: [Localized edema] 11-01-2019 Episodic Residual codes; unclassified (20 sources) Pain; Translations: [Pain, unspecified] 09-24-2020 Episodic Residual codes; unclassified (20 sources) Other specified health status; Translations: [Failure of outpatient treatment] 09-24-2020 Episodic Residual codes; unclassified (20 sources) Past history of procedure; Translations: [Other specified postprocedural states] Onset: 0 09-23-2020 Episodic Residual codes; unclassified (5 sources) Urinary catheter in situ; Translations: [Presence of other specified devices] 08-13-2023 Episodic Septicemia (except in labor) (20 sources) Sepsis due to Gram negative bacteria ; Translations: [Gram-negative sepsis, unspecified] Onset: 5 09-24-2020 Episodic Skin and subcutaneous tissue infections (20 sources) Cellulitis of lower limb; Translations: [Cellulitis of left lower limb] Onset: 5 Episodic Spondylosis; intervertebral disc disorders; other back problems (20 sources) Thoracic arthritis; Translations: [Spondylosis without myelopathy or radiculopathy, thoracic region] 12-10-2018 Chronic Sprains and strains (20 sources) Injury of ankle; Translations: [Sprain of unspecified ligament of left ankle, initial encounter] Onset: 5 04-16-2021 Episodic Superficial injury; contusion (20 sources) Contusion of abdominal wall, initial encounter; Translations: [Contusion of lower limb] Onset: 8 10-06-2022 Episodic Thyroid disorders (20 sources) Cyst of thyroid; Translations: [Nontoxic single thyroid nodule] Onset: 8 12-07-2020 Chronic Unclassified (3 sources) Unknown / UNK(Unknown) Onset: 7 Unclassified (1 source) Other specified postprocedural states; Translations: [Other specified postprocedural states] Onset: 8 Unclassified (1 source) Patient's noncompliance with other medical treatment and regimen due to unspecified reason; Translations: [Patient's noncompliance with other medical treatment and regimen due to unspecified reason] Onset: 5 Unclassified (1 source) Obesity, Class II, BMI 35-39.9; Translations: [Obesity, Class II, BMI 35-39.9] Onset: 3 Unclassified (1 source) Intractable chronic migraine with aura and without status migrainosus; Translations: [Intractable chronic migraine with aura and without status migrainosus] Onset: 4 Viral infection (20 sources) Viral disease; Translations: [Viral infection, unspecified] 07-10-2019 Episodic Past or Other Problems Problem Classification Problem Date Documented Da te Episodic/Chronic Abdominal pain (20 sources) Flank pain; Translations: [Abdominal pain] Onset: 11-27-2016 Episodic Calculus of urinary tract (20 sources) History of calculus of kidney; Translations: [Personal history of urinary calculi] Onset: 01-04-2016 Resolved: 07-04-2018 12-10-2018 Episodic Complications of surgical procedures or medical care (20 sources) Pulmonary insufficiency following surgery; Translations: [Other postprocedural complications and disorders of respiratory system, not elsewhere classified] Onset: 09-30-2021 09-30-2021 Episodic Fluid and electrolyte disorders (20 sources) Hyponatremia; Translations: [Hypo-osmolality and hyponatremia] Onset: 04-08-2021 04-08-2021 Episodic Genitourinary symptoms and ill-defined conditions (20 sources) History of recurrent urinary tract infection; Translations: [Personal history of urinary (tract) infections] Onset: 11-28-2011 02-21-2019 Episodic Hemorrhage during ; abruptio placenta; placenta previa (20 sources) Threatened miscarriage; Translations: [Threatened ] Onset: 06-30-2010 Resolved: 04-07-2011 04-07-2011 Episodic Intestinal infection (2 sources) Clostridium difficile colitis; Translations: [Enterocolitis due to Clostridium difficile, not specified as recurrent] Onset: 12-04-2023 12-04-2023 Episodic Nausea and vomiting (6 sources) Nausea; Translations: [Nausea] Onset: 04-06-2024 Episodic Nonspecific chest pain (20 sources) Chest pain; Translations: [Chest pain, unspecified] Onset: 11-14-2023 08-15-2019 Episodic Other aftercare (2 sources) 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; 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] Onset: 04-29-2024 Episodic Other connective tissue disease (20 sources) Bilateral weakness of upper limbs; Translations: [Other symptoms and signs involving the musculoskeletal system] Onset: 08-07-2013 05-24-2021 Episodic Other connective tissue disease (20 sources) Muscle weakness of limb; Translations: [Muscle weakness (generalized)] Onset: 08-07-2013 05-24-2021 Episodic Other diseases of kidney and ureters (20 sources) Hydronephrosis; Translations: [Unspecified hydronephrosis] Onset: 01-04-2016 02-17-2016 Episodic Other female genital disorders (20 sources) Lesion of uterus; Translations: [Noninflammatory disorder of uterus, unspecified] Onset: 01-01-2020 01-01-2020 Episodic Other gastrointestinal disorders (20 sources) Constipation; Translations: [Outlet dysfunction constipation] Onset: 10-07-2021 Episodic Other gastrointestinal disorders (20 sources) Oropharyngeal dysphagia; Translations: [Dysphagia, oropharyngeal phase] Onset: 03-25-2024 03-04-2024 Episodic Other gastrointestinal disorders (1 source) Dysphagia, oropharyngeal phase; Translations: [Oropharyngeal dysphagia] Onset: 03-25-2024 Episodic Other hematologic conditions (1 source) Infarction of spleen; 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] Onset: 03-21-2024 Episodic Other infections; including parasitic (20 sources) Personal history of other infectious and parasitic diseases; Translations: [History of 2019 novel coronavirus disease (COVID-19)] Onset: 01-24-2020 01-24-2020 Episodic Other nervous system disorders (20 sources) Paresthesia; Translations: [Anesthesia of skin] Onset: 08-07-2013 02-17-2016 Episodic Other nervous system disorders (20 sources) H/O: Manley's palsy; Translations: [Personal history of other diseases of the nervous system and sense organs] Onset: 09-22-2021 Episodic Other nervous system disorders (20 sources) Finding of sensation of lower limb; Translations: [Unspecified disturbances of skin sensation] Onset: 08-07-2013 Resolved: 01-06-2016 01-06-2016 Episodic Other nervous system disorders (1 source) Paresthesia of skin; Translations: [Paresthesias] Onset: 01-03-2024 Episodic Other and delivery including normal (20 sources) Normal in primigravida; Translations: [Encounter for supervision of normal first , unspecified trimester] Onset: 06-30-2010 Resolved: 04-07-2011 04-07-2011 Episodic Other screening for suspected conditions (not mental disorders or infectious disease) (20 sources) Other specified abnormal findings of blood chemistry; Translations: [Other abnormal blood chemistry] Onset: 03-11-2020 03-11-2020 Episodic Ovarian cyst (20 sources) Cyst of ovary; Translations: [Unspecified ovarian cyst, unspecified side] Onset: 11-28-2011 12-25-2013 Episodic Residual codes; unclassified (20 sources) Bilateral lower limb edema; Translations: [Localized edema] Onset: 07-16-2018 07-16-2018 Episodic Residual codes; unclassified (20 sources) Noncompliance with treatment; Translations: [Patient's noncompliance with other medical treatment and regimen] Onset: 09-02-2022 11-01-2019 Episodic Spondylosis; intervertebral disc disorders; other back problems (20 sources) Neck pain; Translations: [Cervicalgia] Onset: 05-02-2013 01-12-2017 Episodic Unclassified (1 source) Incisional hernia with obstruction, without gangrene Onset: 10-17-2017 Unclassified (20 sources) left foot redness 11-01-2018 Unclassified (20 sources) Wound healing well on examination; Translations: [Wound healing well on examination] 03-10-2019 Urinary tract infections (20 sources) Urinary tract infectious disease; Translations: [Urinary tract infection, site not specified] Onset: 04-24-2022 Episodic Results Test Name Value Interpretation Reference Range Facility Bilirubin Test strip Ql (U)O rdered By: Emilee Richard on 09-09-2024 Bilirubin Ql (U) Negative Negative [facility] Ketones Test strip Ql (U)Ord ered By: Emilee Richard on 09-09-2024 Ketones Ql (U) Negative Negative [facility] Mucus LM Ql (Urine sed)Order ed By: Emilee Richard on 09-09-2024 Mucus Ql (Urine sed) 0 SEEN /hpf [facility] Nitrite Test strip Ql (U)Ord ered By: Emilee Richard on 09-09-2024 Nitrite Ql (U) Negative Negative [facility] Protein Test strip Ql (U)Ord ered By: Emilee Richard on 09-09-2024 Protein Ql (U) 30 mg/dl High Negative [facility] Squamous epithelial cells de tection in urine sediment by light microscopyOrdered By: Emilee Richard on 09-09-2024 Epithelial cells.squamous LM Ql (Urine sed) 0-5 SEEN /hpf 5-10 [facility] Urine clarityOrdered By: Hipolito Richard on 09-09-2024 Clarity (U) Sl. Cloudy Clear [facility] Urine color determinationOrd ered By: Emilee Richard on 09-09-2024 Color (U) Yellow Yellow [facility] Urine cultureOrdered By: Hipolito Richard on 09-09-2024 Bacteria identified Cx Nom (U) Morganella morganii sp morgani Abnormal [facility] Bacteria identified Cx Nom (U) Myroides spp Abnormal [facility] Urine glucose detectionOrder ed By: Emilee Richard on 09-09-2024 Glucose Ql (U) 250 mg/dl High Normal [facility] Urine leukocyte esterase det ection by dipstickOrdered By: Emilee Richard on 09-09-2024 Leukocyte esterase Test strip Ql (U) 100 /ul High Negative [facility] Urine pHOrdered By: Emilee Guillen udla on 09-09-2024 pH (U) 7.0 [pH] 5.0 - 8.0 [facility] Urine sediment bacteria coun t by microscopy (number/high power field)Ordered By: Emilee Richard on 09-09-2024 Bacteria LM.HPF (Urine sed) [#/Area] 1 /[HPF] None Seen [facility] Urine specific gravity measu rementOrdered By: Emilee Richard on 09-09-2024 Specific gravity (U) [Rel density] 1.010 1.002-1.03 0 [facility] Urine urobilinogen measureme ntOrdered By: Emilee Richard on 09-09-2024 Urobilinogen Ql (U) Normal mg/dl Normal [facility] White blood cell countOrdere d By: Emilee Richard on 09-09-2024 White blood cell count 10-25 SEEN /hpf 0-5 [facility] TSH DL <= 0.005 mIU/L QnOrde red By: Emilee Richard on 09-03-2024 TSH Qn 2.130 uIU/mL 0.300-4.20 0 [facility] Vitamin B12 ser/plasOrdered By: Emilee Richard on 09-03-2024 Cobalamin (Vitamin B12) [Mass/Vol] 768 pg/mL 180-914 [facility] Absolute lymphocyte countOrd ered By: Emilee Richard on 09-02-2024 Lymphocytes Auto (Unsp spec) [#/Vol] 4.11 10*3/uL 0.83-4.51 [facility] Anion gap in Serum or Plasma Ordered By: Emilee Richard on 09-02-2024 Anion gap [Moles/Vol] 12 mmol/L 5-15 [facility] Automated lymphocyte count a s percentage of total leukocytesOrdered By: Emilee Richard on 09-02-2024 Lymphocytes/100 WBC Auto (Unsp spec) 52.2 % High 19-41 [facility] BUN/creatinine ratioOrdered By: Emilee Richard on 09-02-2024 Urea nitrogen/Creatinine [Mass ratio] 15.2 mg/mg 10-20 [facility] Basophil percentageOrdered B y: Emilee Richard on 09-02-2024 Basophils/100 WBC (Bld) 0.5 % 0-1 [facility] Carbon dioxide, total [Moles /volume] in Central venous bloodOrdered By: Emilee Richard on 09-02-2024 CO2 [Moles/Vol] 24.8 mmol/L 21.0-32.0 [facility] Chloride assayOrdered By: Paul Richard on 09-02-2024 Chloride [Moles/Vol] 101 mmol/L 98-108 [facility] Eosinophil percentageOrdered By: Emilee Richard on 09-02-2024 Eosinophils/100 WBC (Bld) 1.8 % 0-5 [facility] Erythrocyte distribution wid th ratioOrdered By: Emilee Richard on 09-02-2024 Erythrocyte distribution width (RBC) [Ratio] 13.6 % 11.6-14.6 [facility] Erythrocyte distribution wid th standard deviationOrdered By: Emilee Richard on 09-02-2024 Erythrocyte distribution width (RBC) [Ratio] 45.1 fl High 35.1-43.9 [facility] Glomerular filtration rate ( GFR) estimation/1.73 sq m using serum, plasma, or whole bOrdered By: Emilee Richard on 09-02-2024 GFR/1.73 sq M.predicted among non-blacks MDRD (S/P/Bld) [Vol rate/Area] 83 mL/min/{1.73_m2} >60 [facility] Hematocrit Auto (Bld) [Volum e fraction]Ordered By: Emilee Richard on 09-02-2024 Hematocrit (Bld) [Volume fraction] 35.5 % Low 37-47 [facility] Hemoglobin measurementOrdere d By: Emilee Richard on 09-02-2024 Hemoglobin (Bld) [Mass/Vol] 11.8 g/dL Low 12.0-15.0 [facility] Immature granulocytes/100 WB C Auto (Bld)Ordered By: Emilee Richard on 09-02-2024 Immature granulocytes/100 WBC (Bld) 0.600 % 0.0-0.9 [facility] MCV (mean corpuscular volume ) determinationOrdered By: Emilee Richard on 09-02-2024 MCV (RBC) [Entitic vol] 91.7 fL 81-99 [facility] Magnesium measurement (mass/ volume)Ordered By: Emilee Richard on 09-02-2024 Magnesium (Unsp spec) [Mass/Vol] 1.7 mg/dL 1.5-2.2 [facility] Mean corpuscular hemoglobin (MCH) determinationOrdered By: Emilee Richard on 09-02-2024 MCH (RBC) [Entitic mass] 30.5 pg 27.0-32.0 [facility] Monocyte percentageOrdered B y: Emilee Richard on 09-02-2024 Monocytes/100 WBC (Bld) 13.2 % High 0-10 [facility] Neutrophil percentageOrdered By: Emilee Richard on 09-02-2024 Neutrophils/100 WBC (Bld) 31.7 % Low 47-70 [facility] Platelet countOrdered By: Paul Richard on 09-02-2024 Platelets (Bld) [#/Vol] 159 10*3/uL 150-450 [facility] Potassium measurement (mass/ volume)Ordered By: Emilee Richard on 09-02-2024 Potassium (Unsp spec) [Mass/Vol] 4.2 mmol/L 3.3-5.1 [facility] RBC Auto (Bld) [#/Vol]Ordere d By: Emilee Richard on 09-02-2024 RBC (Bld) [#/Vol] 3.87 10*6/uL Low 4.2-5.4 [facility] Serum creatinine measurement (mass/volume)Ordered By: Emilee Richard on 09-02-2024 Creatinine [Mass/Vol] 0.89 mg/dL 0.70-1.20 [facility] Serum glucose measurement (m ass/volume)Ordered By: Emilee Richard on 09-02-2024 Glucose [Mass/Vol] 329 mg/dL High 70-99 [facility] Serum or plasma C reactive p rotein measurement (mass/volume)Ordered By: Emilee Richard on 09-02-2024 CRP [Mass/Vol] mg/L 0.0-3.0 [facility] Serum or plasma calcium thi urement (mass/volume)Ordered By: Emilee Richard on 09-02-2024 Calcium [Mass/Vol] 8.8 mg/dL 7.6-11.0 [facility] Serum or plasma urea nitroge n measurement (mass/volume)Ordered By: Emilee Richard on 09-02-2024 Urea nitrogen [Mass/Vol] 14 mg/dL 4-19 [facility] Sodium levelOrdered By: Torrey Richard on 09-02-2024 Sodium [Moles/Vol] 137 mmol/L 133-145 [facility] White blood cell (WBC) count Ordered By: Emilee Richard on 09-02-2024 WBC (Bld) [#/Vol] 7.9 10*3/uL 4.4-11.0 [facility] Absolute lymphocyte countOrd ered By: Emilee Richard on 08-26-2024 Lymphocytes Auto (Unsp spec) [#/Vol] 3.68 10*3/uL 0.83-4.51 [facility] Anion gap in Serum or Plasma Ordered By: Emilee Richard on 08-26-2024 Anion gap [Moles/Vol] 12 mmol/L 5-15 [facility] Automated lymphocyte count a s percentage of total leukocytesOrdered By: Emilee Richard on 08-26-2024 Lymphocytes/100 WBC Auto (Unsp spec) 42.7 % High 19-41 [facility] BUN/creatinine ratioOrdered By: Emilee Richard on 08-26-2024 Urea nitrogen/Creatinine [Mass ratio] 16.6 mg/mg 10-20 [facility] Basophil percentageOrdered B y: Emilee Richard on 08-26-2024 Basophils/100 WBC (Bld) 0.5 % 0-1 [facility] Carbon dioxide, total [Moles /volume] in Central venous bloodOrdered By: Emilee Richard on 08-26-2024 CO2 [Moles/Vol] 22.9 mmol/L 21.0-32.0 [facility] Chloride assayOrdered By: Paul Richard on 08-26-2024 Chloride [Moles/Vol] 104 mmol/L 98-108 [facility] Eosinophil percentageOrdered By: Emilee Richard on 08-26-2024 Eosinophils/100 WBC (Bld) 0.9 % 0-5 [facility] Erythrocyte distribution wid th ratioOrdered By: Emilee Richrad on 08-26-2024 Erythrocyte distribution width (RBC) [Ratio] 13.3 % 11.6-14.6 [facility] Erythrocyte distribution wid th standard deviationOrdered By: Emilee Richard on 08-26-2024 Erythrocyte distribution width (RBC) [Ratio] 44.3 fl High 35.1-43.9 [facility] Glomerular filtration rate ( GFR) estimation/1.73 sq m using serum, plasma, or whole bOrdered By: Emilee Richard on 08-26-2024 GFR/1.73 sq M.predicted among non-blacks MDRD (S/P/Bld) [Vol rate/Area] 91 mL/min/{1.73_m2} >60 [facility] Hematocrit Auto (Bld) [Volum e fraction]Ordered By: Emilee Richard on 08-26-2024 Hematocrit (Bld) [Volume fraction] 36.0 % Low 37-47 [facility] Hemoglobin measurementOrdere d By: Emilee Richard on 08-26-2024 Hemoglobin (Bld) [Mass/Vol] 12.0 g/dL 12.0-15.0 [facility] Immature granulocytes/100 WB C Auto (Bld)Ordered By: Emilee Richard on 08-26-2024 Immature granulocytes/100 WBC (Bld) 0.300 % 0.0-0.9 [facility] MCV (mean corpuscular volume ) determinationOrdered By: Emilee Richard on 08-26-2024 MCV (RBC) [Entitic vol] 91.4 fL 81-99 [facility] Magnesium measurement (mass/ volume)Ordered By: Emilee Richard on 08-26-2024 Magnesium (Unsp spec) [Mass/Vol] 1.9 mg/dL 1.5-2.2 [facility] Mean corpuscular hemoglobin (MCH) determinationOrdered By: Emilee Richard on 08-26-2024 MCH (RBC) [Entitic mass] 30.5 pg 27.0-32.0 [facility] Monocyte percentageOrdered B y: Emilee Richard on 08-26-2024 Monocytes/100 WBC (Bld) 13.6 % High 0-10 [facility] Neutrophil percentageOrdered By: Emilee Richard on 08-26-2024 Neutrophils/100 WBC (Bld) 42.0 % Low 47-70 [facility] Platelet countOrdered By: Paul Richard on 08-26-2024 Platelets (Bld) [#/Vol] 129 10*3/uL Low 150-450 [facility] Potassium measurement (mass/ volume)Ordered By: Emilee Richard on 08-26-2024 Potassium (Unsp spec) [Mass/Vol] 3.9 mmol/L 3.3-5.1 [facility] RBC Auto (Bld) [#/Vol]Ordere d By: Emilee Richard on 08-26-2024 RBC (Bld) [#/Vol] 3.94 10*6/uL Low 4.2-5.4 [facility] Serum creatinine measurement (mass/volume)Ordered By: Emilee Richard on 08-26-2024 Creatinine [Mass/Vol] 0.83 mg/dL 0.70-1.20 [facility] Serum glucose measurement (m ass/volume)Ordered By: Emilee Richard on 08-26-2024 Glucose [Mass/Vol] 251 mg/dL High 70-99 [facility] Serum or plasma C reactive p rotein measurement (mass/volume)Ordered By: Emilee Richard on 08-26-2024 CRP [Mass/Vol] mg/L 0.0-3.0 [facility] Serum or plasma calcium thi urement (mass/volume)Ordered By: Emilee Richard on 08-26-2024 Calcium [Mass/Vol] 9.0 mg/dL 7.6-11.0 [facility] Serum or plasma urea nitroge n measurement (mass/volume)Ordered By: Emilee Richard on 08-26-2024 Urea nitrogen [Mass/Vol] 14 mg/dL 4-19 [facility] Sodium levelOrdered By: Torrey Richard on 08-26-2024 Sodium [Moles/Vol] 139 mmol/L 133-145 [facility] White blood cell (WBC) count Ordered By: Emilee Richard on 08-26-2024 WBC (Bld) [#/Vol] 8.6 10*3/uL 4.4-11.0 [facility] Absolute lymphocyte countOrd ered By: Emilee Richard on 08-19-2024 Lymphocytes Auto (Unsp spec) [#/Vol] 5.90 10*3/uL High 0.83-4.51 [facility] Anion gap in Serum or Plasma Ordered By: Emilee Richard on 08-19-2024 Anion gap [Moles/Vol] 12 mmol/L 5-15 [facility] BUN/creatinine ratioOrdered By: Emilee Richard on 08-19-2024 Urea nitrogen/Creatinine [Mass ratio] 19.6 mg/mg 10-20 [facility] Blood lymphocytes/100 leukoc ytesOrdered By: Emilee Richard on 08-19-2024 Lymphocytes/100 WBC (Bld) 46 % High 19-41 [facility] Blood metamyelocytes/100 hunter kocytesOrdered By: Emilee Richard on 08-19-2024 Metamyelocytes/100 WBC (Bld) 3 % High 0-1 [facility] Blood monocytes/100 leukocyt esOrdered By: Emilee Richard on 08-19-2024 Monocytes/100 WBC (Bld) 5 % 0-10 [facility] Blood segmented neutrophils/ 100 leukocytesOrdered By: Emilee Richard on 08-19-2024 Segmented neutrophils/100 WBC (Bld) 46 % Low 47-70 [facility] Carbon dioxide, total [Moles /volume] in Central venous bloodOrdered By: Emilee Richard on 08-19-2024 CO2 [Moles/Vol] 24.7 mmol/L 21.0-32.0 [facility] Chloride assayOrdered By: Paul Richard on 08-19-2024 Chloride [Moles/Vol] 103 mmol/L 98-108 [facility] Erythrocyte distribution wid th ratioOrdered By: Emilee Richard on 08-19-2024 Erythrocyte distribution width (RBC) [Ratio] 13.6 % 11.6-14.6 [facility] Erythrocyte distribution wid th standard deviationOrdered By: Emilee Richard on 08-19-2024 Erythrocyte distribution width (RBC) [Ratio] 46.3 fl High 35.1-43.9 [facility] Erythrocyte morphology asses smentOrdered By: Emilee Richard on 08-19-2024 RBC morphology finding Nom (Bld) NORM C+C NORMAL NORM C&C [facility] Glomerular filtration rate ( GFR) estimation/1.73 sq m using serum, plasma, or whole bOrdered By: Emilee Richard on 08-19-2024 GFR/1.73 sq M.predicted among non-blacks MDRD (S/P/Bld) [Vol rate/Area] 89 mL/min/{1.73_m2} >60 [facility] Hematocrit Auto (Bld) [Volum e fraction]Ordered By: Emilee Richard on 08-19-2024 Hematocrit (Bld) [Volume fraction] 36.6 % Low 37-47 [facility] Hemoglobin measurementOrdere d By: Emilee Richard on 08-19-2024 Hemoglobin (Bld) [Mass/Vol] 12.1 g/dL 12.0-15.0 [facility] MCV (mean corpuscular volume ) determinationOrdered By: Emilee Richard on 08-19-2024 MCV (RBC) [Entitic vol] 92.2 fL 81-99 [facility] Magnesium measurement (mass/ volume)Ordered By: Emilee Richard on 08-19-2024 Magnesium (Unsp spec) [Mass/Vol] 1.8 mg/dL 1.5-2.2 [facility] Mean corpuscular hemoglobin (MCH) determinationOrdered By: Emilee Richard on 08-19-2024 MCH (RBC) [Entitic mass] 30.5 pg 27.0-32.0 [facility] Platelet countOrdered By: Paul Richard on 08-19-2024 Platelets (Bld) [#/Vol] 244 10*3/uL 150-450 [facility] Platelet estimateOrdered By: Emilee Richard on 08-19-2024 Platelets LM Ql (Bld) ADEQUATE ADEQ [facility] Potassium measurement (mass/ volume)Ordered By: Emilee Richard on 08-19-2024 Potassium (Unsp spec) [Mass/Vol] 3.5 mmol/L 3.3-5.1 [facility] RBC Auto (Bld) [#/Vol]Ordere d By: Emilee Richard on 08-19-2024 RBC (Bld) [#/Vol] 3.97 10*6/uL Low 4.2-5.4 [facility] Review by pathologistOrdered By: Emilee Richard on 08-19-2024 Pathologist review Allen (Unsp spec) [Interp] N/A [facility] Serum creatinine measurement (mass/volume)Ordered By: Emilee Richard on 08-19-2024 Creatinine [Mass/Vol] 0.84 mg/dL 0.70-1.20 [facility] Serum glucose measurement (m ass/volume)Ordered By: Emilee Richard on 08-19-2024 Glucose [Mass/Vol] 248 mg/dL High 70-99 [facility] Serum or plasma calcium thi urement (mass/volume)Ordered By: Emilee Richard on 08-19-2024 Calcium [Mass/Vol] 8.3 mg/dL 7.6-11.0 [facility] Serum or plasma urea nitroge n measurement (mass/volume)Ordered By: Emilee Richard on 08-19-2024 Urea nitrogen [Mass/Vol] 16 mg/dL 4-19 [facility] Sodium levelOrdered By: Torrey Richard on 08-19-2024 Sodium [Moles/Vol] 140 mmol/L 133-145 [facility] TSH DL <= 0.005 mIU/L QnOrde red By: Emilee Richard on 08-19-2024 TSH Qn 5.080 uIU/mL High 0.300-4.20 0 [facility] Total cell countOrdered By: Emilee Richard on 08-19-2024 Cells counted Molgen (Bld/Tiss) [#] 100 MANUAL DIFF [facility] Vitamin B12 ser/plasOrdered By: Emilee Richard on 08-19-2024 Cobalamin (Vitamin B12) [Mass/Vol] 1516 pg/mL High 180-914 [facility] White blood cell (WBC) count Ordered By: Emilee Richard on 08-19-2024 WBC (Bld) [#/Vol] 12.9 10*3/uL High 4.4-11.0 [facility] Glucose measurement at bedsi deOrdered By: Quynh Boyer on 08-16-2024 Glucose [Mass/Vol] 385 mg/dL High 74-106 [facility] Glucose measurement at bedside 385 mg/dL High 74-106 [facility] Absolute lymphocyte countOrd ered By: Quynh Boyer on 08-15-2024 Lymphocytes Auto (Unsp spec) [#/Vol] 3.76 10*3/uL 0.83-4.51 [facility] Absolute neutrophil countOrd ered By: Quynh Boyer on 08-15-2024 Absolute neutrophil count 5.2 X10^3/uL 2.0-7.7 [facility] Anion gap [Moles/Vol]Ordered By: Quynh Boyer on 08-15-2024 Anion gap in Serum or Plasma 11 5-15 [facility] Anion gap in Serum or Plasma Ordered By: Quynh Boyer on 08-15-2024 Anion gap [Moles/Vol] 11 mmol/L 5-15 [facility] Atypical lymphocyte percenta geOrdered By: Quynh Boyer on 08-15-2024 Atypical lymphocyte percentage 2+ % [facility] BUN/creatinine ratioOrdered By: Quynh Boyer on 08-15-2024 Urea nitrogen/Creatinine [Mass ratio] 26.6 mg/mg High 10-20 [facility] BUN/creatinine ratio 26.6 RATIO High 10-20 [facility] Blood eosinophils/100 leukoc ytesOrdered By: Quynh Boyer on 08-15-2024 Eosinophils/100 WBC (Bld) 1 % 0-5 [facility] Blood lymphocytes/100 leukoc ytesOrdered By: Quynh Boyer on 08-15-2024 Lymphocytes/100 WBC (Bld) 36 % 19-41 [facility] Blood metamyelocytes/100 hunter kocytesOrdered By: Quynh Boyer on 08-15-2024 Metamyelocytes/100 WBC (Bld) 2 % High 0-1 [facility] Blood metamyelocytes/100 leukocytes 2 % High 0-0 [facility] [facility] Blood monocytes/100 leukocyt esOrdered By: Quynh Boyer on 08-15-2024 Monocytes/100 WBC (Bld) 9 % 0-10 [facility] Blood segmented neutrophils/ 100 leukocytesOrdered By: Quynh Boyer on 08-15-2024 Segmented neutrophils/100 WBC (Bld) 50 % 47-70 [facility] Calcium [Mass/Vol]Ordered By : Quynh Boyer on 08-15-2024 Serum or plasma calcium measurement (mass/volume) 8.4 mg/dL 7.6-11.0 [facility] Carbon dioxide, total [Moles /volume] in Central venous bloodOrdered By: Quynh Boyer on 08-15-2024 CO2 [Moles/Vol] 19.9 mmol/L Low 21.0-32.0 [facility] Carbon dioxide, total [Moles/volume] in Central venous blood 19.9 mmol/L Low 21.0-32.0 [facility] Cells counted Molgen (Bld/Ti ss) [#]Ordered By: Quynh Boyer on 08-15-2024 Total cell count 100 MANUAL DIFF [facility] Chloride assayOrdered By: Abdelrahman Boyer on 08-15-2024 Chloride [Moles/Vol] 107 mmol/L 98-108 [facility] Chloride assay 107 mmol/L 98-108 [facility] Creatinine [Mass/Vol]Ordered By: Quynh Boyer on 08-15-2024 Serum creatinine measurement (mass/volume) 0.65 mg/dL Low 0.70-1.20 [facility] Eosinophils/100 WBC (Bld)Ord ered By: Quynh Boyer on 08-15-2024 Blood eosinophils/100 leukocytes 1 % 0-5 [facility] Erythrocyte distribution wid th (RBC) [Entitic vol]Ordered By: Quynh Boyer on 08-15-2024 Erythrocyte distribution width standard deviation 45.7 fl High 35.1-43.9 [facility] Erythrocyte distribution wid th (RBC) [Ratio]Ordered By: Quynh Boyer on 08-15-2024 Erythrocyte distribution width ratio 13.6 % 11.6-14.6 [facility] Erythrocyte distribution wid th ratioOrdered By: Quynh Boyer on 08-15-2024 Erythrocyte distribution width (RBC) [Ratio] 13.6 % 11.6-14.6 [facility] Erythrocyte distribution wid th standard deviationOrdered By: Quynh Boyer on 08-15-2024 Erythrocyte distribution width (RBC) [Ratio] 45.7 fl High 35.1-43.9 [facility] Estimation of creatinine peg aranceOrdered By: Quynh Boyer on 08-15-2024 Estimation of creatinine clearance 127.30 ml/min 50-250 [facility] GFR/1.73 sq M.predicted maki g non-blacks MDRD (S/P/Bld) [Vol rate/Area]Ordered By: Quynh Boyer on 08-15-2024 Glomerular filtration rate (GFR) estimation/1.73 sq m using serum, plasma, or whole b 113 >60 [facility] Glomerular filtration rate ( GFR) estimation/1.73 sq m using serum, plasma, or whole bOrdered By: Quynh Boyer on 08-15-2024 GFR/1.73 sq M.predicted among non-blacks MDRD (S/P/Bld) [Vol rate/Area] 113 mL/min/{1.73_m2} >60 [facility] Glucose [Mass/Vol]Ordered By : Quynh Boyer on 08-15-2024 Serum glucose measurement (mass/volume) 135 mg/dL High 70-99 [facility] Hematocrit Auto (Bld) [Volum e fraction]Ordered By: Quynh Boyer on 08-15-2024 Hematocrit (Bld) [Volume fraction] 33.5 % Low 37-47 [facility] Automated blood hematocrit (percentage) 33.5 % Low 37-47 [facility] Hemoglobin measurementOrdere d By: Quynh Boyer on 08-15-2024 Hemoglobin (Bld) [Mass/Vol] 10.9 g/dL Low 12.0-15.0 [facility] Hemoglobin measurement 10.9 g/dL Low 12.0-15.0 [facility] Lymphocytes Auto (Unsp spec) [#/Vol]Ordered By: Quynh Boyer on 08-15-2024 Absolute lymphocyte count 3.76 X10^3/uL 0.83-4.51 [facility] Lymphocytes/100 WBC (Bld)Ord ered By: Quynh Boyer on 08-15-2024 Blood lymphocytes/100 leukocytes 36 % 19-41 [facility] MCV (RBC) [Entitic vol]Order ed By: Quynh Boyer on 08-15-2024 MCV (mean corpuscular volume) determination 92.0 fL 81-99 [facility] MCV (mean corpuscular volume ) determinationOrdered By: Quynh Boyer on 08-15-2024 MCV (RBC) [Entitic vol] 92.0 fL 81-99 [facility] Mean corpuscular hemoglobin (MCH) determinationOrdered By: Quynh Boyer on 08-15-2024 MCH (RBC) [Entitic mass] 29.9 pg 27.0-32.0 [facility] Mean corpuscular hemoglobin (MCH) determination 29.9 pg 27.0-32.0 [facility] Mean corpuscular hemoglobin concentration (MCHC) determinationOrdered By: Quynh Boyer on 08-15-2024 Mean corpuscular hemoglobin concentration (MCHC) determination 32.5 g/dL 32-36 [facility] Mean platelet volume determi nationOrdered By: Quynh Boyer on 08-15-2024 Mean platelet volume determination 10.7 fl 6.2-12.0 [facility] Monocytes/100 WBC (Bld)Order ed By: Quynh Boyer on 08-15-2024 Blood monocytes/100 leukocytes 9 % 0-10 [facility] Neutrophil percentageOrdered By: Quynh Boyer on 08-15-2024 Neutrophil percentage Not Reportable [facility] Pathologist review Allen (Unsp spec) [Interp]Ordered By: Quynh Boyer on 08-15-2024 Review by pathologist Olga ariza [facility] Platelet countOrdered By: Abdelrahman Boyer on 08-15-2024 Platelets (Bld) [#/Vol] 224 10*3/uL 150-450 [facility] Platelet count 224 K/mm3 150-450 [facility] Potassium (Unsp spec) [Mass/ Vol]Ordered By: Quynh Boyer on 08-15-2024 Potassium measurement (mass/volume) 3.8 mmol/L 3.3-5.1 [facility] Potassium measurement (mass/ volume)Ordered By: Quynh Boyer on 08-15-2024 Potassium (Unsp spec) [Mass/Vol] 3.8 mmol/L 3.3-5.1 [facility] RBC Auto (Bld) [#/Vol]Ordere d By: Quynh Boyer on 08-15-2024 RBC (Bld) [#/Vol] 3.64 10*6/uL Low 4.2-5.4 [facility] Automated blood erythrocyte count 3.64 M/mm3 Low 4.2-5.4 [facility] Review by pathologistOrdered By: Quynh Boyer on 08-15-2024 Pathologist review Allen (Unsp spec) [Interp] Reviewed [facility] Segmented neutrophils/100 WB C (Bld)Ordered By: Quynh Boyer on 08-15-2024 Blood segmented neutrophils/100 leukocytes 50 % 47-70 [facility] Serum creatinine measurement (mass/volume)Ordered By: Quynh Boyer on 08-15-2024 Creatinine [Mass/Vol] 0.65 mg/dL Low 0.70-1.20 [facility] Serum glucose measurement (m ass/volume)Ordered By: Quynh Boyer on 08-15-2024 Glucose [Mass/Vol] 135 mg/dL High 70-99 [facility] Serum or plasma calcium thi urement (mass/volume)Ordered By: Quynh Boyer on 08-15-2024 Calcium [Mass/Vol] 8.4 mg/dL 7.6-11.0 [facility] Serum or plasma urea nitroge n measurement (mass/volume)Ordered By: Quynh Boyer on 08-15-2024 Urea nitrogen [Mass/Vol] 17 mg/dL 4- [facility] Sodium levelOrdered By: Quynh Boyer on 08-15-2024 Sodium [Moles/Vol] 138 mmol/L 133-145 [facility] Sodium level 138 mmol/L 133-145 [facility] Total cell countOrdered By: Quynh Boyer on 08-15-2024 Cells counted Molgen (Bld/Tiss) [#] 100 MANUAL DIFF [facility] Urea nitrogen [Mass/Vol]Orde red By: Quynh Boyer on 08-15-2024 Serum or plasma urea nitrogen measurement (mass/volume) 17 mg/dL 4- [facility] White blood cell (WBC) count Ordered By: Quynh Boyer on 08-15-2024 WBC (Bld) [#/Vol] 10.5 10*3/uL 4.4-11.0 [facility] White blood cell (WBC) count 10.5 K/mm3 4.4-11.0 [facility] Serum phosphorus measurement Ordered By: Ramana Ceravntes on 08-13-2024 Serum phosphorus measurement 2.7 mg/dL 2.7-4.5 [facility] ALP [Catalytic activity/Vol] Ordered By: Ramana Cervantes on 08-12-2024 Serum or plasma alkaline phosphatase measurement 95 U/L 35-104 [facility] ALT [Catalytic activity/Vol] Ordered By: Ramana Cervantes on 08-12-2024 Serum or plasma alanine aminotransferase (ALT) measurement 71 U/L High <35 [facility] Albumin [Mass/Vol]Ordered By : Ramana Cervantes on 08-12-2024 Serum or plasma albumin measurement (mass/volume) 3.5 g/dL 3.5-5.0 [facility] Albumin/Globulin [Mass ratio ]Ordered By: Ramana Cervantes on 08-12-2024 Serum or plasma albumin/globulin mass ratio 0.9 RATIO 0.9-2.4 [facility] Anaerobic cultureOrdered By: Garcia Gonzalez on 08-12-2024 Bacteria identified Anaer cx Nom (Unsp spec) No anaerobic bacteria isolated. [facility] Automated lymphocyte count a s percentage of total leukocytesOrdered By: Ramana Cervantes on 08-12-2024 Lymphocytes/100 WBC Auto (Unsp spec) 13.9 % Low 19-41 [facility] Bacteria LM.HPF (Urine sed) [#/Area]Ordered By: Ramana Cervantes on 08-12-2024 Urine sediment bacteria count by microscopy (number/high power field) 2+ /hpf None Seen [facility] Bacteria identified Anaer cx Nom (Unsp spec)Ordered By: Garcia Gonzalez on 08-12-2024 Anaerobic culture No anaerobic bacteri a isolated. [facility] Basophil percentageOrdered B y: Ramana Cervantes on 08-12-2024 Basophils/100 WBC (Bld) 0.3 % 0-1 [facility] Basophil percentage 0.3 % 0-1 [facility] Bilirubin Test strip Ql (U)O rdered By: Ramana Cervantes on 08-12-2024 Bilirubin Ql (U) Negative Negative [facility] Bilirubin, totalOrdered By: Ramana Cervantes on 08-12-2024 Bilirubin [Mass/Vol] 0.45 mg/dL 0.00-1.30 [facility] Bilirubin, total 0.45 mg/dL 0.00-1.30 [facility] CRP [Mass/Vol]Ordered By: Temi Gonzalez on 08-12-2024 Serum or plasma C reactive protein measurement (mass/volume) 252.00 mg/L High 0.0-3.0 [facility] Calculated very low density lipoprotein (VLDL) cholesterol measurementOrdered By: Ramana Cervantes on 08-12-2024 Calculated very low density lipoprotein (VLDL) cholesterol measurement 33 mg/dL 5-40 [facility] Calculated very low density lipoprotein (VLDL) cholesterol measurement 33 mg/dL 5-40 [facility] Cholesterol [Mass/Vol]Ordere d By: Ramana Cervantes on 08-12-2024 Serum or plasma cholesterol measurement (mass/volume) 137 mg/dL <201 [facility] Cholesterol in HDL [Mass/Vol ]Ordered By: Ramana Cervantes on 08-12-2024 Serum or plasma cholesterol in HDL measurement (mass/volume) 38 mg/dL Low >40 [facility] Clarity (U)Ordered By: Ramana Cervantes on 08-12-2024 Urine clarity Sl. Cloudy Clear [facility] Color (U)Ordered By: Ramana lazcano on 08-12-2024 Urine color determination Yellow Yellow [facility] ESR (Bld) [Velocity]Ordered By: Garcia Gonzalez on 08-12-2024 Erythrocyte sedimentation rate 32 mm/hr High 0-30 [facility] Eosinophil percentageOrdered By: Ramana Cervantes on 08-12-2024 Eosinophils/100 WBC (Bld) 0.0 % 0-5 [facility] Eosinophil percentage 0.0 % 0-5 [facility] Erythrocyte sedimentation ra teOrdered By: Garcia Gonzalez on 08-12-2024 ESR (Bld) [Velocity] 32 mm/h High 0-30 [facility] Glucose Ql (U)Ordered By: Kennedy Cervantes on 08-12-2024 Urine glucose detection 1000 mg/dl High Normal [facility] Gram stainOrdered By: Polly Gonzalez on 08-12-2024 Microscopic observation Gram stain Nom (Unsp spec) [facility] HbA1c (Bld) [Mass fraction]O rdered By: Garcia Gonzalez on 08-12-2024 Hemoglobin A1c percentage 11.8 % >5.7 [facility] Hemoglobin A1c percentageOrd ered By: Garcia Gonzalez on 08-12-2024 HbA1c (Bld) [Mass fraction] 11.8 % >5.7 [facility] Immature granulocytes/100 WB C Auto (Bld)Ordered By: Ramana Cervantes on 08-12-2024 Immature granulocytes/100 WBC (Bld) 1.500 % High 0.0-0.9 [facility] Automated immature granulocyte percentage 1.500 % High 0.0-0.9 [facility] Ketones Test strip Ql (U)Ord ered By: Ramana Cervantes on 08-12-2024 Ketones Ql (U) 50 mg/dl High Negative [facility] Urine ketones detection by test strip 50 mg/dl High Negative [facility] LDL calc ser/plasOrdered By: Ramana Cervantes on 08-12-2024 Cholesterol in LDL [Mass/Vol] 67 mg/dL [facility] LDL calc ser/plas 67 mg/dL [facility] Leukocyte esterase Test stri p Ql (U)Ordered By: Ramana Cervantes on 08-12-2024 Urine leukocyte esterase detection by dipstick 500 /ul High Negative [facility] Lymphocytes/100 WBC Auto (Un sp spec)Ordered By: Ramana Cervantes on 08-12-2024 Automated lymphocyte count as percentage of total leukocytes 13.9 % Low 19-41 [facility] MRSA detection PCROrdered By : Bev Ngo on 08-12-2024 MRSA detection PCR Negative Negative [facility] Magnetic resonance imaging r eportOrdered By: Ramana Huitron on 08-12-2024 Study report [facility] Microscopic analysis of urin e for red blood cells (RBC)Ordered By: Ramana Cervantes on 08-12-2024 Microscopic analysis of urine for red blood cells (RBC) 0 SEEN /hpf [facility] Monocyte percentageOrdered B y: Ramana Cervantes on 08-12-2024 Monocytes/100 WBC (Bld) 5.3 % 0-10 [facility] Monocyte percentage 5.3 % 0-10 [facility] Mucus LM Ql (Urine sed)Order ed By: Ramana Cervantes on 08-12-2024 Mucus Ql (Urine sed) 0 SEEN /hpf [facility] Nasal methicillin resistant Staphylococcus aureus (MRSA) DNA detection by PCROrdered By: Ramana Cervantes on 08-12-2024 MRSA DNA MALIK+probe Ql (Nose) [facility] Nitrite Test strip Ql (U)Ord ered By: Ramana Cervantes on 08-12-2024 Nitrite Ql (U) Negative Negative [facility] No Panel InformationOrdered By: Ramana Cervantes on 08-12-2024 51 U/L High <32 [facility] 1.1 mmol/L 0.0-0.3 [facility] Nucleated red blood cell per centageOrdered By: Ramana Cervantes on 08-12-2024 Nucleated red blood cell percentage 0 % 0-5 [facility] Platelet estimateOrdered By: Ramana Cervantes on 08-12-2024 Platelets LM Ql (Bld) ADEQUATE ADEQ [facility] Platelets LM Ql (Bld)Ordered By: Ramana Cervantes on 08-12-2024 Platelet estimate ADEQUATE ADEQ [facility] Protein Test strip Ql (U)Ord ered By: Ramana Cervantes on 08-12-2024 Protein Ql (U) 30 mg/dl High Negative [facility] Urine protein assay by test strip, semi-quantitative 30 mg/dl High Negative [facility] Routine wound cultureOrdered By: Garcia Gonzalez on 08-12-2024 Microbial culture, routine Corynebacterium amycolatum/xer Abnormal [facility] Microbial culture, routine Staphylococcus auricularis Abnormal [facility] Microbial culture, routine Corynebacterium amycolatum Abnormal [facility] Routine wound culture Staphylococcus aureus Abnormal [facility] Routine wound culture Streptococcus group A Abnormal [facility] Routine wound culture Enterococcus faecalis Abnormal [facility] Routine wound culture Corynebacterium amycolatum Abnormal [facility] S. aureus DNA MALIK+probe Ql ( Unsp spec)Ordered By: Bev Ngo on 08-12-2024 Staphylococcus aureus DNA detection by probe and target amplification method Positive High Negative [facility] Screening total cholesterol/ high density lipoprotein (HDL) cholesterol ratioOrdered By: Ramana Cervantes on 08-12-2024 Screening total cholesterol/high density lipoprotein (HDL) cholesterol ratio 3.63 [facility] Serum globulin measurementOr dered By: Ramana Cervantes on 08-12-2024 Globulin (S) [Mass/Vol] 3.8 g/dL 2.2-4.2 [facility] Serum globulin measurement 3.8 g/dL 2.2-4.2 [facility] Serum or plasma C reactive p rotein measurement (mass/volume)Ordered By: Garcia Gonzalez on 08-12-2024 CRP [Mass/Vol] 252.00 mg/L High 0.0-3.0 [facility] Serum or plasma alanine gagnon otransferase (ALT) measurementOrdered By: Ramana Cervantes on 08-12-2024 ALT [Catalytic activity/Vol] 71 U/L High <35 [facility] Serum or plasma albumin thi urement (mass/volume)Ordered By: Ramana Cervantes on 08-12-2024 Albumin [Mass/Vol] 3.5 g/dL 3.5-5.0 [facility] Serum or plasma albumin/glob ulin mass ratioOrdered By: Ramana Cervantes on 08-12-2024 Albumin/Globulin [Mass ratio] 0.9 {ratio} 0.9-2.4 [facility] Serum or plasma alkaline desirae sphatase measurementOrdered By: Ramana Cervantes on 08-12-2024 ALP [Catalytic activity/Vol] 95 U/L 35-104 [facility] Serum or plasma cholesterol in HDL measurement (mass/volume)Ordered By: Ramana Cervantes on 08-12-2024 Cholesterol in HDL [Mass/Vol] 38 mg/dL Low >40 [facility] Serum or plasma cholesterol measurement (mass/volume)Ordered By: Ramana Cervantes on 08-12-2024 Cholesterol [Mass/Vol] 137 mg/dL <201 [facility] Specific gravity (U) [Rel de nsity]Ordered By: Ramana Cervantes on 08-12-2024 Urine specific gravity measurement 1.015 1.002-1.03 0 [facility] Squamous epithelial cells de tection in urine sediment by light microscopyOrdered By: Ramana Cervantes on 08-12-2024 Epithelial cells.squamous LM Ql (Urine sed) 0 SEEN /hpf 5-10 [facility] Staphylococcus aureus DNA de tection by probe and target amplification methodOrdered By: Bev Ngo on 08-12-2024 S. aureus DNA MALIK+probe Ql (Unsp spec) Positive High Negative [facility] Total proteinOrdered By: Ryan Cervantes on 08-12-2024 Protein [Mass/Vol] 7.4 g/dL 5.9-8.4 [facility] Total protein 7.4 g/dL 5.9-8.4 [facility] Triglycerides measurementOrd ered By: Ramana Cervantes on 08-12-2024 Triglycerides measurement 163 mg/dL <199 [facility] Urine blood detectionOrdered By: Ramana Cervantes on 08-12-2024 Urine blood detection 50 /ul High Negative [facility] Urine clarityOrdered By: Ryan Cervantes on 08-12-2024 Clarity (U) Sl. Cloudy Clear [facility] Urine color determinationOrd ered By: Ramana Cervantes on 08-12-2024 Color (U) Yellow Yellow [facility] Urine glucose detectionOrder ed By: Ramana Cervantes on 08-12-2024 Glucose Ql (U) 1000 mg/dl High Normal [facility] Urine leukocyte esterase det ection by dipstickOrdered By: Ramana Cervantes on 08-12-2024 Leukocyte esterase Test strip Ql (U) 500 /ul High Negative [facility] Urine pHOrdered By: Ramana wiggins on 08-12-2024 pH (U) 6.0 [pH] 5.0 - 8.0 [facility] Urine testOrdered By: Dez Moran on 08-12-2024 HCG ( test) Ql (U) Negative [facility] Urine test Negative [facility] Urine sediment bacteria coun t by microscopy (number/high power field)Ordered By: Ramana Cervantes on 08-12-2024 Bacteria LM.HPF (Urine sed) [#/Area] 2 /[HPF] None Seen [facility] Urine specific gravity measu rementOrdered By: Ramana Cervantes on 08-12-2024 Specific gravity (U) [Rel density] 1.015 1.002-1.03 0 [facility] Urine total bilirubin detect ion by test stripOrdered By: Ramana Cervantes on 08-12-2024 Urine total bilirubin detection by test strip Negative Negative [facility] Urine urobilinogen measureme ntOrdered By: Ramana Cervantes on 08-12-2024 Urobilinogen Ql (U) Normal mg/dl Normal [facility] Urobilinogen Ql (U)Ordered B y: Ramana Cervantes on 08-12-2024 Urine urobilinogen measurement Normal mg/dl Normal [facility] White blood cell countOrdere d By: Ramana Cervantes on 08-12-2024 White blood cell count 10-25 SEEN /hpf 0-5 [facility] White blood cell count 10-25 SEEN /hpf 0-5 [facility] pH (U)Ordered By: Ramana carpio on 08-12-2024 Urine pH 6.0 5.0 - 8.0 [facility] Absolute neutrophil countOrd ered By: Kevin Barcenas on 08-11-2024 Absolute neutrophil count 22.5 X10^3/uL High 2.0-7.7 [facility] Anion gap [Moles/Vol]Ordered By: Kevin Barcenas on 08-11-2024 Anion gap in Serum or Plasma 17 High 5-15 [facility] BUN/creatinine ratioOrdered By: Kevin Barcenas on 08-11-2024 BUN/creatinine ratio 9.7 RATIO Low 10-20 [facility] Basophil percentageOrdered B y: Kevin Barcenas on 08-11-2024 Basophil percentage 0.3 % 0-1 [facility] Blood cultureOrdered By: Nigel Barcenas on 08-11-2024 Bacteria identified Cx Nom (Bld) No growth in 5 days. [facility] Bacteria identified Cx Nom (Bld) No growth in 5 days. [facility] Blood manual differential co mment interpretation (narrative result)Ordered By: Kevin Barcenas on 08-11-2024 Manual differential comment Allen (Bld) [Interp] SEE COMMENT [facility] Calcium [Mass/Vol]Ordered By : Kevin Barcenas on 08-11-2024 Serum or plasma calcium measurement (mass/volume) 9.7 mg/dL 7.6-11.0 [facility] Carbon dioxide, total [Moles /volume] in Central venous bloodOrdered By: Kevin Barcenas on 08-11-2024 Carbon dioxide, total [Moles/volume] in Central venous blood 18.7 mmol/L Low 21.0-32.0 [facility] Chloride assayOrdered By: Puma Barcenas on 08-11-2024 Chloride assay 91 mmol/L Low 98-108 [facility] Creatinine [Mass/Vol]Ordered By: Kevin Barcenas on 08-11-2024 Serum creatinine measurement (mass/volume) 1.19 mg/dL 0.70-1.20 [facility] Eosinophil percentageOrdered By: Kevin Barcenas on 08-11-2024 Eosinophil percentage 0.0 % 0-5 [facility] Erythrocyte distribution wid th (RBC) [Entitic vol]Ordered By: Kevin Barcenas on 08-11-2024 Erythrocyte distribution width standard deviation 42.4 fl 35.1-43.9 [facility] Erythrocyte distribution wid th (RBC) [Ratio]Ordered By: Kevin Barcenas on 08-11-2024 Erythrocyte distribution width ratio 12.8 % 11.6-14.6 [facility] Erythrocyte morphology asses smentOrdered By: Kevin Barcenas on 08-11-2024 RBC morphology finding Nom (Bld) N CHROM NORMAL NORM C&C [facility] Estimation of creatinine peg aranceOrdered By: Kevin Barcenas on 08-11-2024 Estimation of creatinine clearance 66.77 ml/min 50-250 [facility] GFR/1.73 sq M.predicted maki g non-blacks MDRD (S/P/Bld) [Vol rate/Area]Ordered By: Kevin Barcenas on 08-11-2024 Glomerular filtration rate (GFR) estimation/1.73 sq m using serum, plasma, or whole b 59 Low >60 [facility] Glucose [Mass/Vol]Ordered By : Kevin Barcenas on 08-11-2024 Serum glucose measurement (mass/volume) 294 mg/dL High 70-99 [facility] HbA1c (Bld) [Mass fraction]O rdered By: Ramana Cervantes on 08-11-2024 Hemoglobin A1c percentage 11.9 % >5.7 [facility] Hematocrit Auto (Bld) [Volum e fraction]Ordered By: Kevin Barcenas on 08-11-2024 Automated blood hematocrit (percentage) 38.6 % 37-47 [facility] Hemoglobin measurementOrdere d By: Kevin Barcenas on 08-11-2024 Hemoglobin measurement 13.1 g/dL 12.0-15.0 [facility] Immature granulocytes/100 WB C Auto (Bld)Ordered By: Kevin Barcenas on 08-11-2024 Automated immature granulocyte percentage 1.200 % High 0.0-0.9 [facility] Lactic acid measurementOrder ed By: Ramana Cervantes on 08-11-2024 Lactic acid measurement 1.6 mmol/L 0.0-2.0 [facility] Lymphocytes Auto (Unsp spec) [#/Vol]Ordered By: Kevin Barcenas on 08-11-2024 Absolute lymphocyte count 2.00 X10^3/uL 0.83-4.51 [facility] Lymphocytes/100 WBC Auto (Un sp spec)Ordered By: Kevin Barcenas on 08-11-2024 Automated lymphocyte count as percentage of total leukocytes 7.8 % Low 19-41 [facility] MCV (RBC) [Entitic vol]Order ed By: Kevin Barcenas on 08-11-2024 MCV (mean corpuscular volume) determination 89.6 fL 81-99 [facility] Macrocytes detectionOrdered By: Kevin Barcenas on 08-11-2024 Macrocytes Ql (Bld) RARE [facility] Macrocytes detection RARE [facility] Magnesium (Unsp spec) [Mass/ Vol]Ordered By: Ramana Cervantes on 08-11-2024 Magnesium measurement (mass/volume) 1.7 mg/dL 1.5-2.2 [facility] Magnesium measurement (mass/ volume)Ordered By: Ramana Cervantes on 08-11-2024 Magnesium (Unsp spec) [Mass/Vol] 1.7 mg/dL 1.5-2.2 [facility] Manual differential comment Allen (Bld) [Interp]Ordered By: Kevin Barcenas on 08-11-2024 Blood manual differential comment interpretation (narrative result) SEE COMMENT [facility] Mean corpuscular hemoglobin (MCH) determinationOrdered By: Kevin Barcenas on 08-11-2024 Mean corpuscular hemoglobin (MCH) determination 30.4 pg 27.0-32.0 [facility] Mean corpuscular hemoglobin concentration (MCHC) determinationOrdered By: Kevin Barcenas on 08-11-2024 Mean corpuscular hemoglobin concentration (MCHC) determination 33.9 g/dL 32-36 [facility] Mean platelet volume determi nationOrdered By: Kevin Barcenas on 08-11-2024 Mean platelet volume determination 10.0 fl 6.2-12.0 [facility] Monocyte percentageOrdered B y: Kevin Barcenas on 08-11-2024 Monocyte percentage 3.3 % 0-10 [facility] Neutrophil percentageOrdered By: Kevin Barcenas on 08-11-2024 Neutrophil percentage 87.4 % High 47-70 [facility] Nucleated red blood cell per centageOrdered By: Kevin Barcenas on 08-11-2024 Nucleated red blood cell percentage 0 % 0-5 [facility] Platelet countOrdered By: Puma Barcenas on 08-11-2024 Platelet count 237 K/mm3 150-450 [facility] Platelets LM Ql (Bld)Ordered By: Kevin Barcenas on 08-11-2024 Platelet estimate ADEQUATE ADEQ [facility] Potassium (Unsp spec) [Mass/ Vol]Ordered By: Kevin Barcenas on 08-11-2024 Potassium measurement (mass/volume) 4.5 mmol/L 3.3-5.1 [facility] RBC Auto (Bld) [#/Vol]Ordere d By: Kevin Barcenas on 08-11-2024 Automated blood erythrocyte count 4.31 M/mm3 4.2-5.4 [facility] RBC morphology finding Nom ( Bld)Ordered By: Kevin Barcenas on 08-11-2024 Erythrocyte morphology assessment N CHROM NORMAL NORM C&C [facility] Serum or plasma valproate me asurement (mass/volume)Ordered By: Ramana Cervantes on 08-11-2024 Valproate [Mass/Vol] ug/mL Low 50-100 [facility] Sodium levelOrdered By: Kevin Barcenas on 08-11-2024 Sodium level 127 mmol/L Low 133-145 [facility] TSH DL <= 0.005 mIU/L QnOrde red By: Ramana Cervantes on 08-11-2024 TSH Qn 1.550 uIU/mL 0.300-4.20 0 [facility] Serum or plasma thyroid stimulating hormone (TSH) measurement by high sensitivity met 1.550 uIU/mL 0.300-4.20 0 [facility] Urea nitrogen [Mass/Vol]Orde red By: Kevin Barcenas on 08-11-2024 Serum or plasma urea nitrogen measurement (mass/volume) 12 mg/dL 4-19 [facility] Valproate [Mass/Vol]Ordered By: Ramana Cervantes on 08-11-2024 Serum or plasma valproate measurement (mass/volume) < 3 ug/mL Low 50-100 [facility] White blood cell (WBC) count Ordered By: Kevin Barcenas on 08-11-2024 White blood cell (WBC) count 25.7 K/mm3 High 4.4-11.0 [facility] Absolute lymphocyte countOrd ered By: Ron Hernandez on 07-31-2024 Lymphocytes Auto (Unsp spec) [#/Vol] 1.99 10*3/uL 0.83-4.51 [facility] Absolute neutrophil countOrd ered By: Ron Hernandez on 07-31-2024 Absolute neutrophil count 15.1 X10^3/uL High 2.0-7.7 [facility] Anion gap [Moles/Vol]Ordered By: Ron Hernandez on 07-31-2024 Anion gap in Serum or Plasma 14 5-15 [facility] Anion gap in Serum or Plasma Ordered By: Ron Hernandez on 07-31-2024 Anion gap [Moles/Vol] 14 mmol/L 5-15 [facility] Automated lymphocyte count a s percentage of total leukocytesOrdered By: Ron Hernandez on 07-31-2024 Lymphocytes/100 WBC Auto (Unsp spec) 10.8 % Low 19-41 [facility] BUN/creatinine ratioOrdered By: Ron Hernandez on 07-31-2024 Urea nitrogen/Creatinine [Mass ratio] 15.4 mg/mg 10-20 [facility] BUN/creatinine ratio 15.4 RATIO 10-20 [facility] Basophil percentageOrdered B y: Ron Hernandez on 07-31-2024 Basophils/100 WBC (Bld) 0.4 % 0-1 [facility] Basophil percentage 0.4 % 0-1 [facility] CRP [Mass/Vol]Ordered By: Terry Hernandez on 07-31-2024 Serum or plasma C reactive protein measurement (mass/volume) 21.90 mg/L High 0.0-3.0 [facility] Calcium [Mass/Vol]Ordered By : Ron Hernandez on 07-31-2024 Serum or plasma calcium measurement (mass/volume) 9.1 mg/dL 7.6-11.0 [facility] Carbon dioxide, total [Moles /volume] in Central venous bloodOrdered By: Ron Hernandez on 07-31-2024 CO2 [Moles/Vol] 19.5 mmol/L Low 21.0-32.0 [facility] Carbon dioxide, total [Moles/volume] in Central venous blood 19.5 mmol/L Low 21.0-32.0 [facility] Chloride assayOrdered By: Terry Hernandez on 07-31-2024 Chloride [Moles/Vol] 100 mmol/L 98-108 [facility] Chloride assay 100 mmol/L 98-108 [facility] Creatinine [Mass/Vol]Ordered By: Ron Hernandez on 07-31-2024 Serum creatinine measurement (mass/volume) 0.94 mg/dL 0.70-1.20 [facility] ESR (Bld) [Velocity]Ordered By: Ron Hernandez on 07-31-2024 Erythrocyte sedimentation rate 19 mm/hr 0-30 [facility] Eosinophil percentageOrdered By: Ron Hernandez on 07-31-2024 Eosinophils/100 WBC (Bld) 0.6 % 0-5 [facility] Eosinophil percentage 0.6 % 0-5 [facility] Erythrocyte distribution wid th (RBC) [Entitic vol]Ordered By: Ron Hernandez on 07-31-2024 Erythrocyte distribution width standard deviation 42.6 fl 35.1-43.9 [facility] Erythrocyte distribution wid th (RBC) [Ratio]Ordered By: Ron Hernandez on 07-31-2024 Erythrocyte distribution width ratio 13.0 % 11.6-14.6 [facility] Erythrocyte distribution wid th ratioOrdered By: Ron Hernandez on 07-31-2024 Erythrocyte distribution width (RBC) [Ratio] 13.0 % 11.6-14.6 [facility] Erythrocyte distribution wid th standard deviationOrdered By: Ron Hernandez on 07-31-2024 Erythrocyte distribution width (RBC) [Ratio] 42.6 fl 35.1-43.9 [facility] Erythrocyte sedimentation ra teOrdered By: Ron Hernandez on 07-31-2024 ESR (Bld) [Velocity] 19 mm/h 0-30 [facility] GFR/1.73 sq M.predicted maki g non-blacks MDRD (S/P/Bld) [Vol rate/Area]Ordered By: Ron Hernandez on 07-31-2024 Glomerular filtration rate (GFR) estimation/1.73 sq m using serum, plasma, or whole b 78 >60 [facility] Glomerular filtration rate ( GFR) estimation/1.73 sq m using serum, plasma, or whole bOrdered By: Ron Hernandez on 07-31-2024 GFR/1.73 sq M.predicted among non-blacks MDRD (S/P/Bld) [Vol rate/Area] 78 mL/min/{1.73_m2} >60 [facility] Glucose [Mass/Vol]Ordered By : Ron Hernandez on 07-31-2024 Serum glucose measurement (mass/volume) 311 mg/dL High 70-99 [facility] Hematocrit Auto (Bld) [Volum e fraction]Ordered By: Ron Hernandez on 07-31-2024 Hematocrit (Bld) [Volume fraction] 38.9 % 37-47 [facility] Automated blood hematocrit (percentage) 38.9 % 37-47 [facility] Hemoglobin measurementOrdere d By: Ron Hernandez on 07-31-2024 Hemoglobin (Bld) [Mass/Vol] 13.5 g/dL 12.0-15.0 [facility] Hemoglobin measurement 13.5 g/dL 12.0-15.0 [facility] Immature granulocytes/100 WB C Auto (Bld)Ordered By: Ron Hernandez on 07-31-2024 Immature granulocytes/100 WBC (Bld) 0.600 % 0.0-0.9 [facility] Automated immature granulocyte percentage 0.600 % 0.0-0.9 [facility] Lactic acid measurementOrder ed By: Ron Hernandez on 07-31-2024 Lactic acid measurement 1.4 mmol/L 0.0-2.0 [facility] Lymphocytes Auto (Unsp spec) [#/Vol]Ordered By: Ron Hernandez on 07-31-2024 Absolute lymphocyte count 1.99 X10^3/uL 0.83-4.51 [facility] Lymphocytes/100 WBC Auto (Un sp spec)Ordered By: Ron Hernandez on 07-31-2024 Automated lymphocyte count as percentage of total leukocytes 10.8 % Low 19-41 [facility] MCV (RBC) [Entitic vol]Order ed By: Ron Hernandez on 07-31-2024 MCV (mean corpuscular volume) determination 88.8 fL 81-99 [facility] MCV (mean corpuscular volume ) determinationOrdered By: Ron Hernandez on 07-31-2024 MCV (RBC) [Entitic vol] 88.8 fL 81-99 [facility] Mean corpuscular hemoglobin (MCH) determinationOrdered By: Ron Hernandez on 07-31-2024 MCH (RBC) [Entitic mass] 30.8 pg 27.0-32.0 [facility] Mean corpuscular hemoglobin (MCH) determination 30.8 pg 27.0-32.0 [facility] Mean corpuscular hemoglobin concentration (MCHC) determinationOrdered By: oRn Hernandez on 07-31-2024 Mean corpuscular hemoglobin concentration (MCHC) determination 34.7 g/dL 32-36 [facility] Mean platelet volume determi nationOrdered By: Ron Hernandez on 07-31-2024 Mean platelet volume determination 10.7 fl 6.2-12.0 [facility] Monocyte percentageOrdered B y: Ron Hernandez on 07-31-2024 Monocytes/100 WBC (Bld) 5.9 % 0-10 [facility] Monocyte percentage 5.9 % 0-10 [facility] Neutrophil percentageOrdered By: Ron Hernandez on 07-31-2024 Neutrophils/100 WBC (Bld) 81.7 % High 47-70 [facility] Neutrophil percentage 81.7 % High 47-70 [facility] Nucleated red blood cell per centageOrdered By: Ron Hernandez on 07-31-2024 Nucleated red blood cell percentage 0 % 0-5 [facility] Platelet countOrdered By: Terry Hernandez on 07-31-2024 Platelets (Bld) [#/Vol] 194 10*3/uL 150-450 [facility] Platelet count 194 K/mm3 150-450 [facility] Potassium (Unsp spec) [Mass/ Vol]Ordered By: Ron Hernandez on 07-31-2024 Potassium measurement (mass/volume) 4.4 mmol/L 3.3-5.1 [facility] Potassium measurement (mass/ volume)Ordered By: Ron Hernandez on 07-31-2024 Potassium (Unsp spec) [Mass/Vol] 4.4 mmol/L 3.3-5.1 [facility] RBC Auto (Bld) [#/Vol]Ordere d By: Ron Hernandez on 07-31-2024 RBC (Bld) [#/Vol] 4.38 10*6/uL 4.2-5.4 [facility] Automated blood erythrocyte count 4.38 M/mm3 4.2-5.4 [facility] Serum creatinine measurement (mass/volume)Ordered By: Ron Hernandez on 07-31-2024 Creatinine [Mass/Vol] 0.94 mg/dL 0.70-1.20 [facility] Serum glucose measurement (m ass/volume)Ordered By: Ron Hernandez on 07-31-2024 Glucose [Mass/Vol] 311 mg/dL High 70-99 [facility] Serum or plasma C reactive p rotein measurement (mass/volume)Ordered By: Ron Hernandez on 07-31-2024 CRP [Mass/Vol] 21.90 mg/L High 0.0-3.0 [facility] Serum or plasma calcium thi urement (mass/volume)Ordered By: Ron Hernandez on 07-31-2024 Calcium [Mass/Vol] 9.1 mg/dL 7.6-11.0 [facility] Serum or plasma urea nitroge n measurement (mass/volume)Ordered By: Ron Hernandez on 07-31-2024 Urea nitrogen [Mass/Vol] 15 mg/dL 09-14 [facility] Sodium levelOrdered By: Chio Hernandez on 07-31-2024 Sodium [Moles/Vol] 133 mmol/L 133-145 [facility] Sodium level 133 mmol/L 133-145 [facility] Urea nitrogen [Mass/Vol]Orde red By: Ron Hernandez on 07-31-2024 Serum or plasma urea nitrogen measurement (mass/volume) 15 mg/dL - [facility] White blood cell (WBC) count Ordered By: Ron Hernandez on 07-31-2024 WBC (Bld) [#/Vol] 18.5 10*3/uL High 4.4-11.0 [facility] White blood cell (WBC) count 18.5 K/mm3 High 4.4-11.0 [facility] Absolute lymphocyte countOrd ered By: ED PROVIDER on 07-11-2024 Lymphocytes Auto (Unsp spec) [#/Vol] 2.70 10*3/uL 0.83-4.51 [facility] Absolute neutrophil countOrd ered By: ED PROVIDER on 07-11-2024 Absolute neutrophil count 4.5 X10^3/uL 2.0-7.7 [facility] Activated partial thrombopla stin time (aPTT) in platelet poor plasma by coagulation aOrdered By: Dre Deal on 07-11-2024 aPTT Coag (PPP) [Time] 26.1 s 24.1-36.2 [facility] Automated lymphocyte count a s percentage of total leukocytesOrdered By: ED PROVIDER on 07-11-2024 Lymphocytes/100 WBC Auto (Unsp spec) 32.8 % 19-41 [facility] Basophil percentageOrdered B y: ED PROVIDER on 07-11-2024 Basophils/100 WBC (Bld) 0.7 % 0-1 [facility] Basophil percentage 0.7 % 0-1 [facility] Blood urea nitrogen (BUN)/cr eatinine ratioOrdered By: Dre Deal on 07-11-2024 Blood urea nitrogen (BUN)/creatinine ratio 15.1 RATIO 10-20 [facility] Calcium [Mass/Vol]Ordered By : Dre Deal on 07-11-2024 Serum or plasma calcium measurement (mass/volume) 8.5 mg/dL 8.5-10.1 [facility] Carbon dioxide measurementOr dered By: Dre Deal on 07-11-2024 CO2 [Moles/Vol] 21.0 mmol/L 21.0-32.0 [facility] Carbon dioxide measurement 21.0 mmol/L 21.0-32.0 [facility] Chloride measurementOrdered By: Dre Deal on 07-11-2024 Chloride [Moles/Vol] 106 mmol/L 98-107 [facility] Chloride measurement 106 mmol/L 98-107 [facility] Creatinine [Mass/Vol]Ordered By: Dre Deal on 07-11-2024 Serum or plasma creatinine measurement (mass/volume) 0.99 mg/dL 0.55-1.02 [facility] Eosinophil percentageOrdered By: ED PROVIDER on 07-11-2024 Eosinophils/100 WBC (Bld) 1.5 % 0-5 [facility] Eosinophil percentage 1.5 % 0-5 [facility] Erythrocyte distribution wid th (RBC) [Entitic vol]Ordered By: ED PROVIDER on 07-11-2024 Erythrocyte distribution width standard deviation 43.2 fl 35.1-43.9 [facility] Erythrocyte distribution wid th (RBC) [Ratio]Ordered By: ED PROVIDER on 07-11-2024 Erythrocyte distribution width ratio 13.1 % 11.6-14.6 [facility] Erythrocyte distribution wid th ratioOrdered By: ED PROVIDER on 07-11-2024 Erythrocyte distribution width (RBC) [Ratio] 13.1 % 11.6-14.6 [facility] Erythrocyte distribution wid th standard deviationOrdered By: ED PROVIDER on 07-11-2024 Erythrocyte distribution width (RBC) [Ratio] 43.2 fl 35.1-43.9 [facility] Estimated glomerular filtrat ion rate (GFR) AmericanOrdered By: Der Deal on 07-11-2024 Estimated glomerular filtration rate (GFR) 79 mL/min >60 [facility] Estimation of creatinine peg aranceOrdered By: Dre Deal on 07-11-2024 Estimation of creatinine clearance 80.82 ml/min [facility] Glomerular filtration rate ( GFR) estimationOrdered By: Dre Deal on 07-11-2024 GFR/1.73 sq M.predicted among non-blacks MDRD (S/P/Bld) [Vol rate/Area] 65 mL/min/{1.73_m2} >60 [facility] Glomerular filtration rate (GFR) estimation 65 mL/min >60 [facility] Glucose measurementOrdered B y: Dre Deal on 07-11-2024 Glucose [Mass/Vol] 366 mg/dL High 74-106 [facility] Glucose measurement 366 mg/dL High 74-106 [facility] Glucose measurement at bedsi deOrdered By: Dre Deal on 07-11-2024 Glucose [Mass/Vol] 302 mg/dL High 74-106 [facility] Glucose measurement at bedside 302 mg/dL [place] [id number] [facility] Hematocrit Auto (Bld) [Volum e fraction]Ordered By: ED PROVIDER on 07-11-2024 Hematocrit (Bld) [Volume fraction] 42.1 % 37-47 [facility] Automated blood hematocrit (percentage) 42.1 % 37-47 [facility] Hemoglobin measurementOrdere d By: ED PROVIDER on 07-11-2024 Hemoglobin (Bld) [Mass/Vol] 14.2 g/dL 12.0-15.0 [facility] Hemoglobin measurement 14.2 g/dL 12.0-15.0 [facility] Immature granulocytes/100 WB C Auto (Bld)Ordered By: ED PROVIDER on 07-11-2024 Immature granulocytes/100 WBC (Bld) 1.100 % High 0.0-0.9 [facility] Automated immature granulocyte percentage 1.100 % High 0.0-0.9 [facility] International normalized rat io (INR) calculationOrdered By: Dre Say on 07-11-2024 International normalized ratio (INR) calculation 0.9 [facility] Lymphocytes Auto (Unsp spec) [#/Vol]Ordered By: ED PROVIDER on 07-11-2024 Absolute lymphocyte count 2.70 X10^3/uL 0.83-4.51 [facility] Lymphocytes/100 WBC Auto (Un sp spec)Ordered By: ED PROVIDER on 07-11-2024 Automated lymphocyte count as percentage of total leukocytes 32.8 % 19-41 [facility] MCV (RBC) [Entitic vol]Order ed By: ED PROVIDER on 07-11-2024 MCV (mean corpuscular volume) determination 89.4 fL 81-99 [facility] MCV (mean corpuscular volume ) determinationOrdered By: ED PROVIDER on 07-11-2024 MCV (RBC) [Entitic vol] 89.4 fL 81-99 [facility] Mean corpuscular hemoglobin (MCH) determinationOrdered By: ED PROVIDER on 07-11-2024 MCH (RBC) [Entitic mass] 30.1 pg 27.0-32.0 [facility] Mean corpuscular hemoglobin (MCH) determination 30.1 pg 27.0-32.0 [facility] Mean corpuscular hemoglobin concentration (MCHC) determinationOrdered By: ED PROVIDER on 07-11-2024 Mean corpuscular hemoglobin concentration (MCHC) determination 33.7 g/dL 32-36 [facility] Mean platelet volume determi nationOrdered By: ED PROVIDER on 07-11-2024 Mean platelet volume determination 10.5 fl 6.2-12.0 [facility] Monocyte percentageOrdered B y: ED PROVIDER on 07-11-2024 Monocytes/100 WBC (Bld) 9.2 % 0-10 [facility] Monocyte percentage 9.2 % 0-10 [facility] Neutrophil percentageOrdered By: ED PROVIDER on 07-11-2024 Neutrophils/100 WBC (Bld) 54.7 % 47-70 [facility] Neutrophil percentage 54.7 % 47-70 [facility] Nucleated red blood cell per centageOrdered By: ED PROVIDER on 07-11-2024 Nucleated red blood cell percentage 0 % 0-5 [facility] Platelet countOrdered By: ED PROVIDER on 07-11-2024 Platelets (Bld) [#/Vol] 205 10*3/uL 150-450 [facility] Platelet count 205 K/mm3 150-450 [facility] Potassium measurementOrdered By: Dre Deal on 07-11-2024 Potassium [Moles/Vol] 4.1 mmol/L 3.5-5.1 [facility] Potassium measurement 4.1 mmol/L 3.5-5.1 [facility] Prothrombin timeOrdered By: Dre Deal on 07-11-2024 PT Coag (PPP) [Time] 12.3 s 11.7-14.9 [facility] Prothrombin time 12.3 SECONDS 11.7-14.9 [facility] RBC Auto (Bld) [#/Vol]Ordere d By: ED PROVIDER on 07-11-2024 RBC (Bld) [#/Vol] 4.71 10*6/uL 4.2-5.4 [facility] Automated blood erythrocyte count 4.71 M/mm3 4.2-5.4 [facility] Serum anion gap measurementO rdered By: Dre Deal on 07-11-2024 Serum anion gap measurement 9 5-15 [facility] Serum or plasma calcium thi urement (mass/volume)Ordered By: Dre Deal on 07-11-2024 Calcium [Mass/Vol] 8.5 mg/dL 8.5-10.1 [facility] Serum or plasma creatinine m easurement (mass/volume)Ordered By: Dre Deal on 07-11-2024 Creatinine [Mass/Vol] 0.99 mg/dL 0.55-1.02 [facility] Serum or plasma urea nitroge n measurement (mass/volume)Ordered By: Dre Deal on 07-11-2024 Urea nitrogen [Mass/Vol] 15 mg/dL 7-18 [facility] Sodium levelOrdered By: Dre Deal on 07-11-2024 Sodium [Moles/Vol] 136 mmol/L 136-145 [facility] Sodium level 136 mmol/L 136-145 [facility] Urea nitrogen [Mass/Vol]Orde red By: Dre Deal on 07-11-2024 Serum or plasma urea nitrogen measurement (mass/volume) 15 mg/dL 7-18 [facility] White blood cell (WBC) count Ordered By: ED PROVIDER on 07-11-2024 WBC (Bld) [#/Vol] 8.2 10*3/uL 4.4-11.0 [facility] White blood cell (WBC) count 8.2 K/mm3 4.4-11.0 [facility] aPTT Coag (PPP) [Time]Ordere d By: Dre Deal on 07-11-2024 Activated partial thromboplastin time (aPTT) in platelet poor plasma by coagulation a 26.1 Seconds 24.1-36.2 [facility] ALP [Catalytic activity/Vol] Ordered By: Rigo Espinal on 06-12-2024 Serum or plasma alkaline phosphatase measurement 99 U/L 45-117 [facility] ALT [Catalytic activity/Vol] Ordered By: Rigo Espinal on 06-12-2024 Serum or plasma alanine aminotransferase (ALT) measurement 97 U/L High 13-56 [facility] Absolute lymphocyte countOrd ered By: Rigo Espinal on 06-12-2024 Lymphocytes Auto (Unsp spec) [#/Vol] 4.77 10*3/uL High 0.83-4.51 [facility] Absolute neutrophil countOrd ered By: Rigo Espinal on 06-12-2024 Absolute neutrophil count 3.9 X10^3/uL 2.0-7.7 [facility] Albumin [Mass/Vol]Ordered By : Rigo Espinal on 06-12-2024 Serum or plasma albumin measurement (mass/volume) 3.7 g/dL 3.2-5.0 [facility] Albumin to globulin ratioOrd ered By: Rigo Espinal on 06-12-2024 Albumin to globulin ratio 0.8 RATIO Low 0.9-2.4 [facility] Automated lymphocyte count a s percentage of total leukocytesOrdered By: Rigo Espinal on 06-12-2024 Lymphocytes/100 WBC Auto (Unsp spec) 48.5 % High 19-41 [facility] Bacteria LM.HPF (Urine sed) [#/Area]Ordered By: Rigo Espinal on 06-12-2024 Urine sediment bacteria count by microscopy (number/high power field) 1+ /hpf None Seen [facility] Basophil percentageOrdered B y: Rigo sEpinal on 06-12-2024 Basophils/100 WBC (Bld) 0.8 % 0-1 [facility] Basophil [facility] 0.8 % 0-[facility] Bil[facility] Test strip Ql (U)O rdered By: Rigo Espinal on 06-12-2024 Bilirubin Ql (U) Negative Negative [facility] Bilirubin, totalOrdered By: Rigo Espinal on 06-12-2024 Bilirubin [Mass/Vol] 0.40 mg/dL 0.20-1.00 [facility] Bilirubin, total 0.40 mg/dL 0.20-1.00 [facility] Blood urea nitrogen (BUN)/cr eatinine ratioOrdered By: Rigo Espinal on 06-12-2024 Blood urea nitrogen (BUN)/creatinine ratio 14.3 RATIO 10-20 [facility] Calcium [Mass/Vol]Ordered By : Rigo Espinal on 06-12-2024 Serum or plasma calcium measurement (mass/volume) 9.3 mg/dL 8.5-10.1 [facility] Carbon dioxide measurementOr dered By: Rigo Espinal on 06-12-2024 CO2 [Moles/Vol] 26.0 mmol/L 21.0-32.0 [facility] Carbon dioxide measurement 26.0 mmol/L 21.0-32.0 [facility] Chloride measurementOrdered By: Rigo Espinla on 06-12-2024 Chloride [Moles/Vol] 102 mmol/L 98-107 [facility] Chloride measurement 102 mmol/L 98-107 [facility] Clarity (U)Ordered By: Rigo Espinal on 06-12-2024 Urine clarity Clear Clear [facility] Color (U)Ordered By: Rigo owusu on 06-12-2024 Urine color determination Yellow Yellow [facility] Creatinine [Mass/Vol]Ordered By: Rigo Espinal on 06-12-2024 Serum or plasma creatinine measurement (mass/volume) 1.19 mg/dL High 0.55-1.02 [facility] Eosinophil percentageOrdered By: Rigo Espinal on 06-12-2024 Eosinophils/100 WBC (Bld) 1.5 % 0-5 [facility] Eosinophil percentage 1.5 % 0-5 [facility] Erythrocyte distribution wid th (RBC) [Entitic vol]Ordered By: Rigo Espinal on 06-12-2024 Erythrocyte distribution width standard deviation 43.8 fl 35.1-43.9 [facility] Erythrocyte distribution wid th (RBC) [Ratio]Ordered By: Rigo Espinal on 06-12-2024 Erythrocyte distribution width ratio 13.4 % 11.6-14.6 [facility] Erythrocyte distribution wid th ratioOrdered By: Rigo Espinal on 06-12-2024 Erythrocyte distribution width (RBC) [Ratio] 13.4 % 11.6-14.6 [facility] Erythrocyte distribution wid th standard deviationOrdered By: Rigo Espinal on 06-12-2024 Erythrocyte distribution width (RBC) [Ratio] 43.8 fl 35.1-43.9 [facility] Estimated glomerular filtrat ion rate (GFR) AmericanOrdered By: Rigo Espinal on 06-12-2024 Estimated glomerular filtration rate (GFR) 64 mL/min >60 [facility] Estimation of creatinine peg aranceOrdered By: Rigo Espinal on 06-12-2024 Estimation of creatinine clearance 66.58 ml/min [facility] Glomerular filtration rate ( GFR) estimationOrdered By: Rigo Espinal on 06-12-2024 GFR/1.73 sq M.predicted among non-blacks MDRD (S/P/Bld) [Vol rate/Area] 53 mL/min/{1.73_m2} Low >60 [facility] Glomerular filtration rate (GFR) estimation 53 mL/min Low >60 [facility] Glucose Ql (U)Ordered By: Keagan Espinal on 06-12-2024 Urine glucose detection 1000 mg/dl High Normal [facility] Glucose measurementOrdered B y: Rigo Espinal on 06-12-2024 Glucose [Mass/Vol] 368 mg/dL High 74-106 [facility] Glucose measurement 368 mg/dL High 74-106 [facility] Hematocrit Auto (Bld) [Volum e fraction]Ordered By: Rigo Espinal on 06-12-2024 Hematocrit (Bld) [Volume fraction] 42.9 % 37-47 [facility] Automated blood hematocrit (percentage) 42.9 % 37-47 [facility] Hemoglobin measurementOrdere d By: Rigo Espinal on 06-12-2024 Hemoglobin (Bld) [Mass/Vol] 14.7 g/dL 12.0-15.0 [facility] Hemoglobin measurement 14.7 g/dL 12.0-15.0 [facility] Immature granulocytes/100 WB C Auto (Bld)Ordered By: Rigo Espinal on 06-12-2024 Immature granulocytes/100 WBC (Bld) 0.900 % 0.0-0.9 [facility] Automated immature granulocyte percentage 0.900 % 0.0-0.9 [facility] Ketones Test strip Ql (U)Ord ered By: Rigo Espinal on 06-12-2024 Ketones Ql (U) Negative Negative [facility] Lactic acid measurementOrder ed By: Rigo Espinal on 06-12-2024 Lactic acid measurement 2.0 mmol/L 0.4-2.0 [facility] Leukocyte esterase Test stri p Ql (U)Ordered By: Rigo Espinal on 06-12-2024 Urine leukocyte esterase detection by dipstick 100 /ul High Negative [facility] Lipase measurementOrdered By : Rigo Espinal on 06-12-2024 Lipase measurement 49 U/L 13-75 [facility] Lymphocytes Auto (Unsp spec) [#/Vol]Ordered By: Rigo Espinal on 06-12-2024 Absolute lymphocyte count 4.77 X10^3/uL High 0.83-4.51 [facility] Lymphocytes/100 WBC Auto (Un sp spec)Ordered By: Rigo Espinal on 06-12-2024 Automated lymphocyte count as percentage of total leukocytes 48.5 % High 19-41 [facility] MCV (RBC) [Entitic vol]Order ed By: Rigo Espinal on 06-12-2024 MCV (mean corpuscular volume) determination 89.4 fL 81-99 [facility] MCV (mean corpuscular volume ) determinationOrdered By: Rigo Espinal on 06-12-2024 MCV (RBC) [Entitic vol] 89.4 fL 81-99 [facility] Mean corpuscular hemoglobin (MCH) determinationOrdered By: Rigo Espinal on 06-12-2024 MCH (RBC) [Entitic mass] 30.6 pg 27.0-32.0 [facility] Mean corpuscular hemoglobin (MCH) determination 30.6 pg 27.0-32.0 [facility] Mean corpuscular hemoglobin concentration (MCHC) determinationOrdered By: Rigo Espinal on 06-12-2024 Mean corpuscular hemoglobin concentration (MCHC) determination 34.3 g/dL 32-36 [facility] Mean platelet volume determi nationOrdered By: Rigo Espinal on 06-12-2024 Mean platelet volume determination 11.2 fl 6.2-12.0 [facility] Microscopic analysis of urin e for red blood cells (RBC)Ordered By: Rigo Espinal on 06-12-2024 Microscopic analysis of urine for red blood cells (RBC) > 100 SEEN /hpf 0-5 [facility] Monocyte percentageOrdered B y: Rigo Espinal on 06-12-2024 Monocytes/100 WBC (Bld) 8.7 % 0-10 [facility] Monocyte percentage 8.7 % 0-10 [facility] Mucus LM Ql (Urine sed)Order ed By: Rigo Espinal on 06-12-2024 Mucus Ql (Urine sed) RARE /hpf [facility] Mucus detection in urine sediment by light microscopy RARE /hpf [facility] Neutrophil percentageOrdered By: Rigo Espinal on 06-12-2024 Neutrophils/100 WBC (Bld) 39.6 % Low 47-70 [facility] Neutrophil percentage 39.6 % Low 47-70 [facility] [place] Nitrite Test strip Ql (U)Ord ered By: Rigo Espinal on 06-12-2024 Nitrite Ql (U) Negative Negative [facility] No Panel InformationOrdered By: Rigo Espinal on 06-12-2024 59 U/L High 15-37 [facility] Nucleated red blood cell per centageOrdered By: Rigo Espinal on 06-12-2024 Nucleated red blood cell percentage 0 % 0-5 [facility] Platelet countOrdered By: Keagan Espinal on 06-12-2024 Platelets (Bld) [#/Vol] 230 10*3/uL 150-450 [facility] Platelet count 230 K/mm3 150-450 [facility] Potassium measurementOrdered By: Rigo Espinal on 06-12-2024 Potassium [Moles/Vol] 4.5 mmol/L 3.5-5.1 [facility] [place] Potassium measurement 4.5 mmol/L 3.5-5.1 [facility] [place] Protein Test strip Ql (U)Ord ered By: Rigo Espinal on 06-12-2024 Protein Ql (U) 100 mg/dl High Negative [facility] Urine protein assay by test strip, semi-quantitative 100 mg/dl High Negative [facility] RBC Auto (Bld) [#/Vol]Ordere d By: Rigo Espinal on 06-12-2024 RBC (Bld) [#/Vol] 4.80 10*6/uL 4.2-5.4 [facility] Automated blood erythrocyte count 4.80 M/mm3 4.2-5.4 [facility] Serum anion gap measurementO rdered By: Rigo Espinal on 06-12-2024 Serum anion gap measurement 8 5-15 [facility] Serum globulin measurementOr dered By: Rigo Espinal on 06-12-2024 Globulin (S) [Mass/Vol] 4.6 g/dL High 2.2-4.2 [facility] Serum globulin measurement 4.6 g/dL High 2.2-4.2 [facility] Serum or plasma alanine gagnon otransferase (ALT) measurementOrdered By: Rigo Espinal on 06-12-2024 ALT [Catalytic activity/Vol] 97 U/L High 13-56 [facility] Serum or plasma albumin thi urement (mass/volume)Ordered By: Rigo Espinal on 06-12-2024 Albumin [Mass/Vol] 3.7 g/dL 3.2-5.0 [facility] Serum or plasma alkaline desirae sphatase measurementOrdered By: Rigo Espinal on 06-12-2024 ALP [Catalytic activity/Vol] 99 U/L 45-117 [facility] Serum or plasma calcium thi urement (mass/volume)Ordered By: Rigo Espinal on 06-12-2024 Calcium [Mass/Vol] 9.3 mg/dL 8.5-10.1 [facility] Serum or plasma creatinine m easurement (mass/volume)Ordered By: Riog Espinal on 06-12-2024 Creatinine [Mass/Vol] 1.19 mg/dL High 0.55-1.02 [facility] [place] Serum or plasma urea nitroge n measurement (mass/volume)Ordered By: Rigo Espinal on 06-12-2024 Urea nitrogen [Mass/Vol] 17 mg/dL 7-18 [facility] Sodium levelOrdered By: Rigo Espinal on 06-12-2024 Sodium [Moles/Vol] 136 mmol/L 136-145 [facility] Sodium level 136 mmol/L 136-145 [facility] Specific gravity (U) [Rel de nsity]Ordered By: Rigo Espinal on 06-12-2024 Urine specific gravity measurement 1.020 1.002-1.03 0 [facility] Squamous epithelial cells de tection in urine sediment by light microscopyOrdered By: Rigo Espinal on 06-12-2024 Epithelial cells.squamous LM Ql (Urine sed) 10-25 SEEN /hpf 5-10 [facility] Total proteinOrdered By: Veronica Espinal on 06-12-2024 Protein [Mass/Vol] 8.3 g/dL High 6.4-8.2 [facility] Total protein 8.3 g/dL High 6.4-8.2 [facility] Urea nitrogen [Mass/Vol]Orde red By: Rigo Espinal on 06-12-2024 Serum or plasma urea nitrogen measurement (mass/volume) 17 mg/dL 7-18 [facility] Urine blood detectionOrdered By: Rigo Espinal on 06-12-2024 Urine blood detection 250 /ul High Negative [facility] [place] Urine clarityOrdered By: Veronica Espinal on 06-12-2024 Clarity (U) Clear Clear [facility] Urine color determinationOrd ered By: Rigo Espinal on 06-12-2024 Color (U) Yellow Yellow [facility] Urine glucose detectionOrder ed By: Rigo Espinal on 06-12-2024 Glucose Ql (U) 1000 mg/dl High Normal [facility] Urine leukocyte esterase det ection by dipstickOrdered By: Rigo Espinal on 06-12-2024 Leukocyte esterase Test strip Ql (U) 100 /ul High Negative [facility] Urine pHOrdered By: Rigo savage on 06-12-2024 pH (U) 6.0 [pH] 5.0 - 8.0 [facility] Urine sediment bacteria coun t by microscopy (number/high power field)Ordered By: Rigo Espinal on 06-12-2024 Bacteria LM.HPF (Urine sed) [#/Area] 1 /[HPF] None Seen [facility] Urine specific gravity measu rementOrdered By: Rigo Espinal on 06-12-2024 Specific gravity (U) [Rel density] 1.020 1.002-1.03 0 [facility] Urine total bilirubin detect ion by test stripOrdered By: Rigo Espinal on 06-12-2024 Urine total bilirubin detection by test strip Negative Negative [facility] Urine urobilinogen measureme ntOrdered By: Rigo Espinal on 06-12-2024 Urobilinogen Ql (U) Normal mg/dl Normal [facility] [place] Urobilinogen Ql (U)Ordered B y: Rigo Espinal on 06-12-2024 Urine urobilinogen measurement Normal mg/dl Normal [facility] White blood cell (WBC) count Ordered By: Rigo Espinal on 06-12-2024 WBC (Bld) [#/Vol] 9.8 10*3/uL 4.4-11.0 [facility] White blood cell (WBC) count 9.8 K/mm3 4.4-11.0 [facility] White blood cell countOrdere d By: Rigo Espinal on 06-12-2024 White blood cell count 10-25 SEEN /hpf 0-5 [facility] White blood cell count 10-25 SEEN /hpf 5-10 [facility] pH (U)Ordered By: Rigo pham on 06-12-2024 Urine pH 6.0 5.0 - 8.0 [facility] Absolute neutrophil countOrd ered By: Arnold Caban on 06-09-2024 Absolute neutrophil count 3.2 X10^3/uL 2.0-7.7 [facility] Acetone [Mass/Vol]Ordered By : Arnold Caban on 06-09-2024 Serum acetone measurement Negative NEG [facility] Amorphous sediment LM Ql (Ur ine sed)Ordered By: Arnold Caban on 06-09-2024 Amorphous sediment detection in urine sediment by light microscopy 1+ [facility] Bacteria LM.HPF (Urine sed) [#/Area]Ordered By: Arnold Caban on 06-09-2024 Urine sediment bacteria count by microscopy (number/high power field) 3+ /hpf None Seen [facility] Basophil percentageOrdered B y: Arnold Caban on 06-09-2024 Basophil percentage 0.7 % 0-1 [facility] Blood urea nitrogen (BUN)/cr eatinine ratioOrdered By: Arnold Caban on 06-09-2024 Blood urea nitrogen (BUN)/creatinine ratio 16.7 RATIO 10-20 [facility] Calcium [Mass/Vol]Ordered By : Arnold Caban on 06-09-2024 Serum or plasma calcium measurement (mass/volume) 9.0 mg/dL 8.5-10.1 [facility] Carbon dioxide measurementOr dered By: Arnold Caban on 06-09-2024 Carbon dioxide measurement 27.0 mmol/L 21.0-32.0 [facility] Chloride measurementOrdered By: Arnold Caban on 06-09-2024 Chloride measurement 102 mmol/L 98-107 [facility] Clarity (U)Ordered By: Arnold Caban 06-09-2024 Urine clarity Cloudy Clear [facility] Color (U)Ordered By: Arnold Caban on 06-09-2024 Urine color determination Straw Yellow [facility] Creatinine [Mass/Vol]Ordered By: Arnold Caban on 06-09-2024 Serum or plasma creatinine measurement (mass/volume) 0.90 mg/dL 0.55-1.02 [facility] Eosinophil percentageOrdered By: Arnold Caban on 06-09-2024 Eosinophil percentage 1.5 % 0-5 [facility] [place] Epithelial cells.squamous LM Ql (Urine sed)Ordered By: Arnold Caban on 06-09-2024 Squamous epithelial cells detection in urine sediment by light microscopy 5-10 SEEN /hpf 5-10 [facility] Erythrocyte distribution wid th (RBC) [Entitic vol]Ordered By: Arnold Caban on 06-09-2024 Erythrocyte distribution width standard deviation 43.3 fl 35.1-43.9 [facility] Erythrocyte distribution wid th (RBC) [Ratio]Ordered By: Arnold Caban on 06-09-2024 Erythrocyte distribution width ratio 13.2 % 11.6-14.6 [facility] Estimated glomerular filtrat ion rate (GFR) AmericanOrdered By: Arnold Caban on 06-09-2024 Estimated glomerular filtration rate (GFR) 88 mL/min >60 [facility] Estimation of creatinine peg aranceOrdered By: Arnold Caban on 06-09-2024 Estimation of creatinine clearance 89.01 ml/min [facility] Glomerular filtration rate ( GFR) estimationOrdered By: Arnold Caban on 06-09-2024 Glomerular filtration rate (GFR) estimation 73 mL/min >60 [facility] Glucose Ql (U)Ordered By: Андрей Caban on 06-09-2024 Urine glucose detection 1000 mg/dl High Normal [facility] Glucose measurementOrdered B y: Arnold Caban on 06-09-2024 Glucose measurement 334 mg/dL High 74-106 [facility] Glucose measurement at bedsi deOrdered By: Arnold Caban on 06-09-2024 Glucose measurement at bedside 298 mg/dL High 74-106 [facility] Hematocrit Auto (Bld) [Volum e fraction]Ordered By: Arnold Caban on 06-09-2024 Automated blood hematocrit (percentage) 42.7 % 37-47 [facility] Hemoglobin measurementOrdere d By: Arnold Caban on 06-09-2024 Hemoglobin measurement 14.5 g/dL 12.0-15.0 [facility] Immature granulocytes/100 WB C Auto (Bld)Ordered By: Arnold Caban on 06-09-2024 Automated immature granulocyte percentage 0.600 % 0.0-0.9 [facility] Leukocyte esterase Test stri p Ql (U)Ordered By: Arnold Caban on 06-09-2024 Urine leukocyte esterase detection by dipstick 500 /ul High Negative [facility] Lymphocytes Auto (Unsp spec) [#/Vol]Ordered By: Arnold Caban on 06-09-2024 Absolute lymphocyte count 3.81 X10^3/uL 0.83-4.51 [facility] Lymphocytes/100 WBC Auto (Un sp spec)Ordered By: Arnold Caban on 06-09-2024 Automated lymphocyte count as percentage of total leukocytes 47.2 % High 19-41 [facility] MCV (RBC) [Entitic vol]Order ed By: Arnold Caban on 06-09-2024 MCV (mean corpuscular volume) determination 88.6 fL 81-99 [facility] Mean corpuscular hemoglobin (MCH) determinationOrdered By: Arnold Caban on 06-09-2024 Mean corpuscular hemoglobin (MCH) determination 30.1 pg 27.0-32.0 [facility] Mean corpuscular hemoglobin concentration (MCHC) determinationOrdered By: Arnold Caban on 06-09-2024 Mean corpuscular hemoglobin concentration (MCHC) determination 34.0 g/dL 32-36 [facility] Mean platelet volume determi nationOrdered By: Arnold Caban on 06-09-2024 Mean platelet volume determination 10.4 fl 6.2-12.0 [facility] Microscopic analysis of urin e for red blood cells (RBC)Ordered By: Arnold Caban on 06-09-2024 Microscopic analysis of urine for red blood cells (RBC) 0-5 SEEN /hpf 0-5 [facility] Monocyte percentageOrdered B y: Arnold Caban on 06-09-2024 Monocyte percentage 10.2 % High 0-10 [facility] Mucus LM Ql (Urine sed)Order ed By: Arnold Caban on 06-09-2024 Mucus detection in urine sediment by light microscopy RARE /hpf [facility] Neutrophil percentageOrdered By: Arnold Caban on 06-09-2024 Neutrophil percentage 39.8 % Low 47-70 [facility] [place] Nitrite Test strip Ql (U)Ord ered By: Arnold Caban on 06-09-2024 Urine nitrite test by dipstick Positive High Negative [facility] Nucleated red blood cell per centageOrdered By: Arnold Caban on 06-09-2024 Nucleated red blood cell percentage 0 % 0-5 [facility] Platelet countOrdered By: Андрей Caban on 06-09-2024 Platelet count 187 K/mm3 150-450 [facility] Potassium measurementOrdered By: Arnold Caban on 06-09-2024 Potassium measurement 3.8 mmol/L 3.5-5.1 [facility] [place] Protein Test strip Ql (U)Ord ered By: Arnold Caban on 06-09-2024 Urine protein assay by test strip, semi-quantitative 30 mg/dl High Negative [facility] RBC Auto (Bld) [#/Vol]Ordere d By: Arnold Caban on 06-09-2024 Automated blood erythrocyte count 4.82 M/mm3 4.2-5.4 [facility] Serum anion gap measurementO rdered By: Arnold Caban on 06-09-2024 Serum anion gap measurement 5 5-15 [facility] Sodium levelOrdered By: Arnold Caban on 06-09-2024 Sodium level 134 mmol/L Low 136-145 [facility] Specific gravity (U) [Rel de nsity]Ordered By: Arnold Caban on 06-09-2024 Urine specific gravity measurement 1.015 1.002-1.03 0 [facility] Urea nitrogen [Mass/Vol]Orde red By: Arnold Caban on 06-09-2024 Serum or plasma urea nitrogen measurement (mass/volume) 15 mg/dL 7-18 [facility] Urine blood detectionOrdered By: Arnold Caban on 06-09-2024 Urine blood detection 50 /ul High Negative [facility] [place] Urine cultureOrdered By: Patric Caban on 06-09-2024 Urine culture Serratia marcescens Abnormal [facility] Urine total bilirubin detect ion by test stripOrdered By: Arnold Caban on 06-09-2024 Urine total bilirubin detection by test strip Negative Negative [facility] Urobilinogen Ql (U)Ordered B y: Arnold Caban on 06-09-2024 Urine urobilinogen measurement Normal mg/dl Normal [facility] White blood cell (WBC) count Ordered By: Arnold Caban on 06-09-2024 White blood cell (WBC) count 8.1 K/mm3 4.4-11.0 [facility] White blood cell countOrdere d By: Arnold Caban on 06-09-2024 White blood cell count >100 SEEN /hpf 0-5 [facility] pH (U)Ordered By: Arnold Caban on 06-09-2024 Urine pH 6.0 5.0 - 8.0 [facility] .Auto Diffon 06-02-2024 Basophil, Absolute 0.1 10 3/mcL Normal 0.0-0.2 [facility] Comment on above: Performed By: #### M DW, BECKY, ANEU, CBC, GFR, CMP, LIP #### [address] [address] Basophils/100 WBC (Bld) 0.8 % Normal 0.0-2.5 [facility] Comment on above: Performed By: #### M DW, ADIFF, ANEU, CBC, GFR, CMP, LIP #### [address] [address] Eosinophil, Absolute 0.2 10 3/mcL Normal 0.0-0.7 [facility] Comment on above: Performed By: #### M DW, ADIFF, ANEU, CBC, GFR, CMP, LIP #### [address] [address] Eosinophils/100 WBC (Bld) 1.9 % Normal 0.0-7.0 [facility] Comment on above: Performed By: #### M DW, ADIFF, ANEU, CBC, GFR, CMP, LIP #### [address] [address] Lymphocyte, Absolute 3.8 10 3/mcL Normal 0.9-4.3 [facility] Comment on above: Performed By: #### M DW, ADIFF, ANEU, CBC, GFR, CMP, LIP #### [address] [address] Lymphocytes/100 WBC (Bld) 42.4 % High 20.0-40.0 [facility] Comment on above: Performed By: #### M DW, ADIFF, ANEU, CBC, GFR, CMP, LIP #### [address] [address] Monocyte, Absolute 0.9 10 3/mcL Normal 0.1-1.4 [facility] Comment on above: Performed By: #### M DW, ADIFF, ANEU, CBC, GFR, CMP, LIP #### [address] [address] Monocytes/100 WBC (Bld) 10.0 % Normal 2.0-13.0 [facility] Comment on above: Performed By: #### M DW, ADIFF, ANEU, CBC, GFR, CMP, LIP #### [facility] [address] [place], [place] [address] Neutrophils/100 WBC (Bld) 44.9 % Low 50.0-75.0 [facility] Comment on above: Performed By: #### M DW, ADIFF, ANEU, CBC, GFR, CMP, LIP #### [place] [address] [place], [place] [address] .GFRon 06-02-2024 GFR 55 ml/min/1.73sqm Normal [facility] Comment on above: Result Comment: GFR Population mean for , [...] 15 mL/min/1.73 square meters Performed By: #### M DW, ADIFF, ANEU, CBC, GFR, CMP, LIP ####[place] [address] [place], [place] [address] GFR Non- 45 ml/min/1.73sqm Normal [facility] Comment on above: Result Comment: GFR Population mean for , [...] 15 mL/min/1.73 square meters Performed By: #### M DW, ADIFF, ANEU, CBC, GFR, CMP, LIP ####[address] [place] [address] .MDWon 06-02-2024 Monocyte Distribution Width 20.75 High 0.00-20.00 [facility] Comment on above: Result Comment: For adults in ED, MDW>20.0 may be associated with a higher risk of sepsis during the first 12hrs of hospital admission Performed By: #### M DW, ADIFF, ANEU, CBC, GFR, CMP, LIP ####[place] [address] [place] [address] .NEUABSon 06-02-2024 Neutrophil, Absolute 4.0 10 3/mcL Normal 2.3-8.1 [facility] Comment on above: Performed By: #### M DW, ADIFF, ANEU, CBC, GFR, CMP, LIP #### [place] [address] .Urinalysis Microscopic (AO) on 06-02-2024 UA Bacteria 2+ /hpf Abnormal [facility] Comment on above: Performed By: #### U A, UAMICAO ####[place] [id number] [address] UA RBC 0-5 Abnormal None Seen [facility] Comment on above: Performed By: #### U A, UAMICAO ####[place] [address] [place] [address] UA Squam Epithelial 0-5 Abnormal None Seen [facility] Comment on above: Performed By: #### U A, UAMICAO ####[place] [address] UA WBC 10-15 Abnormal None Seen [facility] Comment on above: Performed By: #### U A, UAMICAO ####[place] [address] CBCon 06-02-2024 Erythrocyte distribution width (RBC) [Ratio] 14.7 % Normal 11.5-15.5 [facility] Comment on above: Performed By: #### M DW, ADIFF, ANEU, CBC, GFR, CMP, LIP #### [address] [address] Hematocrit (Bld) [Volume fraction] 45.4 % Normal 34.0-46.0 [facility] Comment on above: Performed By: #### M DW, ADIFF, ANEU, CBC, GFR, CMP, LIP #### [address] [address] Hgb 15.3 G/dL Normal 12.0-16.0 [facility] Comment on above: Performed By: #### M DW, ADIFF, ANEU, CBC, GFR, CMP, LIP #### [address] [address] MCH (RBC) [Entitic mass] 30.7 pg Normal 27.0-33.0 [facility] Comment on above: Performed By: #### M DW, ADIFF, ANEU, CBC, GFR, CMP, LIP #### [address] [address] MCHC 33.6 G/dL Normal 32.0-36.0 [facility] Comment on above: Performed By: #### M DW, ADIFF, ANEU, CBC, GFR, CMP, LIP #### [address] [address] MCV (RBC) [Entitic vol] 91.3 fL Normal 80.0-99.0 [facility] Comment on above: Performed By: #### M DW, ADIFF, ANEU, CBC, GFR, CMP, LIP #### [address] [address] Platelet 215 10 3/mcL Normal 150-450 [facility] Comment on above: Performed By: #### M DW, ADIFF, ANEU, CBC, GFR, CMP, LIP #### [address] [address] Platelet mean volume (Bld) [Entitic vol] 8.6 fL Normal 6.6-10.5 [facility] Comment on above: Performed By: #### M DW, ADIFF, ANEU, CBC, GFR, CMP, LIP #### [place] [address] [place], [place] [address] RBC 4.98 10 6/mcL Normal 4.10-5.30 [facility] Comment on above: Performed By: #### M DW, ADIFF, ANEU, CBC, GFR, CMP, LIP #### [place] [address] [address] WBC 8.9 10 3/mcL Normal 4.5-10.8 [facility] Comment on above: Performed By: #### M DW, ADIFF, ANEU, CBC, GFR, CMP, LIP #### [address] [address] CMPon 06-02-2024 Albumin Level 3.8 G/dL Normal 3.5-5.0 [facility] Comment on above: Performed By: #### M DW, ADIFF, ANEU, CBC, GFR, CMP, LIP ####[address] [address] Albumin/Globulin [Mass ratio] 0.9 {ratio} Low 1.1-2.5 [facility] Comment on above: Performed By: #### M DW, ADIFF, ANEU, CBC, GFR, CMP, LIP ####[address] [place], [place] [address] ALP [Catalytic activity/Vol] 126 U/L Normal 40-135 [facility] Comment on above: Performed By: #### M DW, ADIFF, ANEU, CBC, GFR, CMP, LIP ####[address] [address] ALT [Catalytic activity/Vol] 67 U/L High 14-59 [facility] Comment on above: Performed By: #### M DW, ADIFF, ANEU, CBC, GFR, CMP, LIP ####[place] [id number] [place], [place] [address] AST [Catalytic activity/Vol] 32 U/L Normal 10-40 [facility] Comment on above: Performed By: #### M DW, ADIFF, ANEU, CBC, GFR, CMP, LIP ####[place] [address] [place], [place] [address] Bili Total 0.2 mg/dL Normal 0.2-1.0 [facility] Comment on above: Result Comment: Use of this assay is not recommended for patients undergoing treatment with eltrombopag due to the potential for falsely elevated results. Performed By: #### M DW, ADIFF, ANEU, CBC, GFR, CMP, LIP ####[place] [address] [place], [place] [address] BUN/Creatinine Ratio 15 ratio Normal 7-27 [facility] Comment on above: Performed By: #### M DW, ADIFF, ANEU, CBC, GFR, CMP, LIP ####[place] [id number] [place], [place] [address] Calcium [Mass/Vol] 9.6 mg/dL Normal 8.4-10.2 [facility] Comment on above: Performed By: #### M DW, ADIFF, ANEU, CBC, GFR, CMP, LIP ####[facility] [place], [place] [address] Chloride [Moles/Vol] 98 mmol/L Normal 98-107 [facility] Comment on above: Performed By: #### M DW, ADIFF, ANEU, CBC, GFR, CMP, LIP ####[place] [place], [place] [address] CO2 [Moles/Vol] 27 mmol/L Normal 22-29 [facility] Comment on above: Performed By: #### M DW, ADIFF, ANEU, CBC, GFR, CMP, LIP ####[place] [address] [place], [place] [address] Creatinine [Mass/Vol] 1.29 mg/dL High 0.55-1.02 [facility] Comment on above: Result Comment: Test ing performed on Siemens Dimension EXL analyzer using a modified kinetic Landon technique. Performed By: #### M DW, ADIFF, ANEU, CBC, GFR, CMP, LIP ####[address] [address] Electrolyte Balance 9.0 mEq/L Normal 4.0-15.0 [facility] Comment on above: Performed By: #### M DW, ADIFF, ANEU, CBC, GFR, CMP, LIP ####[place] [address] [place], [place] [address] Globulin 4.2 G/dL Normal [facility] Comment on above: Performed By: #### M DW, ADIFF, ANEU, CBC, GFR, CMP, LIP ####[place] [address] [place], [place] [address] Glucose [Mass/Vol] 511 mg/dL Critically abnormal 70-105 [facility] Comment on above: Performed By: #### M DW, ADIFF, ANEU, CBC, GFR, CMP, LIP ####[address] [place], [place] [address] Potassium [Moles/Vol] 4.5 mmol/L Normal 3.5-5.1 [facility] Comment on above: Performed By: #### M DW, ADIFF, ANEU, CBC, GFR, CMP, LIP ####[address] [place], [place] [address] Sodium [Moles/Vol] 134 mmol/L Low 136-145 [facility] Comment on above: Performed By: #### M DW, ADIFF, ANEU, CBC, GFR, CMP, LIP ####[place] [address] [place], [place] [address] Total Protein 8.0 G/dL Normal 6.4-8.2 [facility] Comment on above: Performed By: #### M DW, ADIFF, ANEU, CBC, GFR, CMP, LIP ####[place] [address] [place], [place] [address] Urea nitrogen [Mass/Vol] 19 mg/dL High 7-18 [facility] Comment on above: Performed By: #### M DW, ADIFF, ANEU, CBC, GFR, CMP, LIP ####[facility] [place], [place] [address] CT ABD/PELVIS W/ IV CONTRAST ONLYon 06-02-2024 CT ABD/PELVIS W/ IV CONTRAST ONLY ORIGINAL EXAMINATION: CT OF THE ABDOMEN AND PELVIS WITH CONTRAST 06/02/2024 1:52 am TECHNIQUE: CT of the abdomen and pelvis was performed with the administration of intravenous contrast. Multiplanar reformatted images are provided for review. Automated exposure control, iterative reconstruction, and/or weight based adjustment of the mA/kV was utilized to reduce the radiation dose to as low as reasonably achievable. COMPARISON: None. HISTORY: ORDERING SYSTEM PROVIDED HISTORY: Reason for Exam: pain FINDINGS: Lower Chest: Lungs are clear bilaterally. Organs: The liver, post cholecystectomy biliary tree, pancreas, spleen, adrenal glands, and kidneys show no sign of acute abnormality. Nonobstructing stone in the lower pole the right kidney measuring 5 mm is unchanged. Ureters are normal in caliber without evidence of an obstructing stone. GI/Bowel: The stomach and duodenum are unremarkable. No evidence of obstruction of the small bowel or colon. 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 There is a stable peristomal hernia that contains multiple loops of colon. Stable umbilical hernia noted, which contains a segment of the appendix which demonstrates no active inflammatory change. Pelvis: Suprapubic catheter redemonstrated. Urinary bladder wall thickening with balloon catheter is noted. There is mild haziness noted adjacent to the urinary bladder. No suspicious adnexal lesions are identified. Peritoneum/Retroperitone um: There is no retroperitoneal lymph node enlargement. Abdominal aorta and inferior vena cava are normal in size. Bones/Soft Tissues: No acute osseous abnormality. IMPRESSION: 1. Mild wall thickening of the urinary bladder with adjacent haziness is nonspecific and could be seen in the setting of an infectious or inflammatory cystitis, this should be correlated with urinalysis. Suprapubic catheter appears to be in appropriate position. No additional acute intra-abdominal findings. Numerous chronic findings as detailed above. Interpreted by: Donavon Figueroa MD Preliminary Report By: Donavon Figueroa MD Electronically signed By Donavon Figueroa MD Dictated Date: 06/02/2024 1:56:41 AM Prelim Date: 06/02/2024 2:08:26 AM Sign Date: 06/02/2024 2:08:26 AM Ordering Provider: SOLEDAD VARGAS [facility] LABORATORYOrdered By: Tania Humphries on 06-02-2024 Glucose [Mass/Vol] 294 mg/dL High 70 - 110 mg/dL [facility] LABORATORYOrdered By: Leidy Waddell on 06-02-2024 HCG ( test) Ql Negative (06/02/24 1:01 AM) Normal AO Manual Urine SS test (u) int Not detected Invalid Interpretation Code AO Manual Urine SS Appearance (U) Clear (06/02/24 12:53 AM) Normal Clear AO Auto Urine SS Bacteria LM.HPF (Urine sed) [#/Area] 2 /[HPF] Invalid Interpretation Code AO Auto Urine SS Bilirubin Ql (U) Negative (06/02/24 12:53 AM) Normal Negative AO Auto Urine SS Color (U) Yellow (06/02/24 12:53 AM) Normal AO Auto Urine SS Glucose Test strip (U) [Mass/Vol] 500 mg/dL Invalid Interpretation Code Negative AO Auto Urine SS Hemoglobin Auto test strip (U) [Mass/Vol] Trace *ABN* (06/02/24 12:53 AM) Invalid Interpretation Code Negative AO Auto Urine SS Ketones Ql (U) Negative Normal Negative AO Auto Ur ine SS UA Leuk Est Small *ABN* (06/02/24 12:53 AM) Invalid Interpretation Code Negative AO Auto Urine SS UA Nitrite Positive *ABN* (06/02/24 12:53 AM) Invalid Interpretation Code Negative AO Auto Urine SS UA pH 6.0 (06/02/24 12:53 AM) Normal 5.0 - 8.0 AO Auto Urine SS UA Protein 30 mg/dL Normal Negative AO Auto Urine SS UA RBC 0-5 /HPF Invalid Interpretation Code None Seen AO Auto Urine SS UA Spec Grav 1.015 (06/02/24 12:53 AM) Normal 1.015-1.02 5 AO Auto Urine SS UA Specimen Type Cook Catheter (06/02/24 12:53 AM) Normal AO Auto Urine SS UA Squam Epithelial 0-5 /HPF Invalid Interpretation Code None Seen AO Auto Urine SS UA Urobilinogen 0.2 E.U./dL Normal 0.2-1.0 AO Auto Urine SS WBC LM.HPF (Urine sed) [#/Area] 10-15 /HPF Invalid Interpretation Code None Seen AO Auto Urine SS LABORATORYOrdered By: SYSTEM SYSTEM on 06-02-2024 Albumin BCP dye [Mass/Vol] 3.8 G/dL Normal 3.5 - 5.0 G/dL AO ADM SS Albumin/Globulin [Mass ratio] 0.9 {ratio} Low 1.1 - 2.5 ratio AO ADM SS ALP [Catalytic activity/Vol] 126 U/L Normal 40 - 135 U/L AO ADM SS ALT With P-5'-P [Catalytic activity/Vol] 67 U/L High 14 - 59 U/L AO ADM SS AST With P-5'-P [Catalytic activity/Vol] 32 U/L Normal 10 - 40 U/L AO ADM SS Basophils (Bld) [#/Vol] 0.1 103/mcL Normal 0.0 - 0.2 10^3/mcL AO Workflow SS Basophils/100 WBC (Bld) 0.8 % Normal 0.0 - 2.5 % AO Workflow SS Bilirubin [Mass/Vol] 0.2 mg/dL Normal 0.2 - 1 .0 mg/dL AO ADM SS Comment on above: Interpretive Data: U se of this assay is not recommended for patients undergoing treatment with eltrombopag due to the potential for falsely elevated results. Calcium [Mass/Vol] 9.6 mg/dL Normal 8.4 - 10. 2 mg/dL AO ADM SS Chloride [Moles/Vol] 98 mmol/L Normal 98 - 10 7 mmol/L AO ADM SS CO2 [Moles/Vol] 27 mmol/L Normal 22 - 29 mmol/L AO ADM SS Creatinine [Mass/Vol] 1.29 mg/dL High 0.55 - 1.02 mg/dL AO ADM SS Comment on above: Interpretive Data: T esting performed on Siemens Dimension EXL analyzer using a modified kinetic Landon technique. Electrolyte Balance 9.0 mEq/L Normal 4.0 - 15 .0 mEq/L AO ADM SS Eosinophil, Absolute 0.2 103/mcL Normal 0.0 - 0 .7 10^3/mcL AO Workflow SS Eosinophils/100 WBC (Bld) 1.9 % Normal 0.0 - 7.0 % AO Workflow SS Erythrocyte distribution width (RBC) [Ratio] 14.7 % Normal 11.5 - 15.5 % AO Workflow SS GFR/1.73 sq M.predicted among blacks MDRD (S/P/Bld) [Vol rate/Area] 55 ml/min/1.73sqm Invalid Interpretation Code AO Chemistry S Comment on above: Interpretive Data: GFR Population mean for , Non- Americans Ages 20-29 = 116 mL/min/1.73 sq.m. Ages 30-39 = 107 mL/min/1.73 sq.m. Ages 40-49 = 99 mL/min/1.73 sq.m. Ages 50-59 = 93 mL/min/1.73 sq.m. Ages 60-69 = 85 mL/min/1.73 sq.m. Ages 70+ = 75 mL/min/1.73 sq.m. Chronic Kidney Disease: Less than 60 mL/min/1.73 square meters End Stage Renal Disease: Less than 15 mL/min/1.73 square meters GFR/1.73 sq M.predicted among non-blacks MDRD (S/P/Bld) [Vol rate/Area] 45 ml/min/1.73sqm Invalid Interpretation Code AO Chemistry S Comment on above: Interpretive Data: GFR Population mean for , Non- Americans Ages 20-29 = 116 mL/min/1.73 sq.m. Ages 30-39 = 107 mL/min/1.73 sq.m. Ages 40-49 = 99 mL/min/1.73 sq.m. Ages 50-59 = 93 mL/min/1.73 sq.m. Ages 60-69 = 85 mL/min/1.73 sq.m. Ages 70+ = 75 mL/min/1.73 sq.m. Chronic Kidney Disease: Less than 60 mL/min/1.73 square meters End Stage Renal Disease: Less than 15 mL/min/1.73 square meters Globulin 4.2 G/dL Invalid Interpretation Code AO ADM SS Glucose [Mass/Vol] 511 mg/dL Invalid Interpretation Code 70 - 105 mg/dL AO ADM SS Hematocrit (Bld) [Volume fraction] 45.4 % Normal 34.0 - 46.0 % AO Workflow SS Hemoglobin (Bld) [Mass/Vol] 15.3 G/dL Normal 12.0 - 16.0 G/dL AO Workflow SS Lipase [Catalytic activity/Vol] 58 U/L Normal 16 - 77 U/L AO ADM SS Lymphocytes (Bld) [#/Vol] 3.8 103/mcL Normal 0.9 - 4.3 10^3/mcL AO Workflow SS Lymphocytes/100 WBC (Bld) 42.4 % High 20.0 - 40.0 % AO Workflow SS MCH (RBC) [Entitic mass] 30.7 pg Normal 27.0 - 33.0 pg AO Workflow SS MCHC 33.6 G/dL Normal 32.0 - 36.0 G/dL AO Workflow SS MCV (RBC) [Entitic vol] 91.3 fL Normal 80.0 - 99.0 fL AO Workflow SS Monocyte distribution width Auto (Bld) [Entitic vol] 20.75 1 High 0.00 - 20.00 AO Workflow SS Comment on above: Result Comment: For adults in ED, MDW>20.0 may be associated with a higher risk of sepsis during the first 12hrs of hospital admission Monocytes (Bld) [#/Vol] 0.9 103/mcL Normal 0.1 - 1.4 10^3/mcL AO Workflow SS Monocytes/100 WBC (Bld) 10.0 % Normal 2.0 - 13.0 % AO Workflow SS Neutrophils (Bld) [#/Vol] 4.0 103/mcL Normal 2.3 - 8.1 10^3/mcL AO Workflow SS Neutrophils/100 WBC (Bld) 44.9 % Low 50.0 - 75.0 % AO Workflow SS Platelet mean volume (Bld) [Entitic vol] 8.6 fL Normal 6.6 - 10.5 fL AO Workflow SS Platelets (Bld) [#/Vol] 215 103/mcL Normal 150 - 450 10^3/mcL AO Workflow SS Potassium [Moles/Vol] 4.5 mmol/L Normal 3.5 - 5.1 mmol/L AO ADM SS Protein [Mass/Vol] 8.0 G/dL Normal 6.4 - 8.2 G/dL AO ADM SS RBC (Bld) [#/Vol] 4.98 106/mcL Normal 4.10 - 5.30 10^6/mcL AO Workflow SS Sodium [Moles/Vol] 134 mmol/L Low 136 - 145 mmol/L AO ADM SS Urea nitrogen [Mass/Vol] 19 mg/dL High 7 - 18 mg/dL AO ADM SS Urea nitrogen/Creatinine [Mass ratio] 15 ratio Normal 7 - 27 ratio AO ADM SS WBC (Bld) [#/Vol] 8.9 103/mcL Normal 4.5 - 10.8 10^3/mcL AO Workflow SS LIPon 06-02-2024 Lipase Level 58 U/L Normal 16-77 [facility] Comment on above: Performed By: #### M DW, ADIFF, ANEU, CBC, GFR, CMP, LIP ####[address] [place], [place] [address] No Panel Informationon 06-02 Microscopic examination of blood, culture Culture has been received in lab and is no growth to date. Routine cultures are held for [address] [facility] PREGUon 06-02-2024 HCG ( test) Ql (U) Negative Normal [facility] Comment on above: Performed By: #### P REGU ####[address] [place] [id number] test (u) int Not detected Invalid Interpretation Code [facility] Comment on above: Performed By: #### P REGU ####[address] [place] [address] UAon 06-02-2024 Color (U) Yellow Normal [facility] Comment on above: Performed By: #### U A, UAMICAO ####[address] [place], [place] [address] Glucose (U) [Mass/Vol] 500 mg/dL Abnormal Negative [facility] Comment on above: Performed By: #### U A, UAMICAO ####[address] [place] [id number] Ketones Ql (U) Negative Normal Negative [facility] Comment on above: Performed By: #### U A, UAMICAO ####[address] [place], [place] [address] UA Appear Clear Normal Clear [facility] Comment on above: Performed By: #### U A, UAMICAO ####[address] [place], [place] [address] UA Blood Trace Abnormal Negative [facility] Comment on above: Performed By: #### U A, UAMICAO ####[address] [place], [place] [address] UA Leuk Est Small Abnormal Negative [facility] Comment on above: Performed By: #### U A UAMICAO ####[address] [place] [address] UA Nitrite Positive Abnormal Negative [facility] Comment on above: Performed By: #### U A, UAMICAO ####[address] [place] [address] UA pH 6.0 Normal 5.0 - 8.0 [facility] Comment on above: Performed By: #### U A, UAMICAO ####[address] [place] [address] UA Protein 30 mg/dL Normal Negative [facility] Comment on above: Performed By: #### U A UAMICAO ####[address] [place] [address] UA Spec Grav 1.015 Normal 1.015-1.02 5 [facility] Comment on above: Performed By: #### U A UAMICAO ####[address] [place] [address] UA Specimen Type Cook Catheter Normal [facility] Comment on above: Performed By: #### U A UAMICAO ####[address] [place] [address] UA Urobilinogen 0.2 E.U./dL Normal 0.2-1.0 [facility] Comment on above: Performed By: #### U A, UAMICAO ####[address] [place] [address] Urobilinogen (U) [Mass/Vol] Negative Normal Negative [facility] Comment on above: Performed By: #### U A, UAMICAO ####[address] [place] [address] .Auto Diffon 04-07-2024 Basophil, Absolute 0.1 10 3/mcL Normal 0.0-0.2 [facility] Comment on above: Performed By: #### A CHRIS, GFR, MDW, CMP, ADIFF, LIP, CBC ####[place] [address] [place], [place] [address] Basophils/100 WBC (Bld) 0.9 % Normal 0.0-2.5 [facility] Comment on above: Performed By: #### A CHRIS, GFR, MDW, CMP, ADIFF, LIP, CBC ####[facility] [place], [place] [address] Eosinophil, Absolute 0.1 10 3/mcL Normal 0.0-0.7 [facility] Comment on above: Performed By: #### A CHRIS, GFR, MDW, CMP, ADIFF, LIP, CBC ####[facility] [place], [place] [address] Eosinophils/100 WBC (Bld) 1.6 % Normal 0.0-7.0 [facility] Comment on above: Performed By: #### A CHRIS, GFR, MDW, CMP, ADIFF, LIP, CBC ####[address] [address] Lymphocyte, Absolute 3.6 10 3/mcL Normal 0.9-4.3 [facility] Comment on above: Performed By: #### A CHRIS, GFR, MDW, CMP, ADIFF, LIP, CBC ####[facility] [place], [place] [address] Lymphocytes/100 WBC (Bld) 41.9 % High 20.0-40.0 [facility] Comment on above: Performed By: #### A CHRIS, GFR, MDW, CMP, ADIFF, LIP, CBC ####[facility] [place], [place] [address] Monocyte, Absolute 0.8 10 3/mcL Normal 0.1-1.4 [facility] Comment on above: Performed By: #### A CHRIS, GFR, MDW, CMP, ADIFF, LIP, CBC ####[facility] [place], [place] [address] Monocytes/100 WBC (Bld) 9.6 % Normal 2.0-13.0 [facility] Comment on above: Performed By: #### A CHRIS, GFR, MDW, CMP, ADIFF, LIP, CBC ####[place] [address] [place], [place] [address] Neutrophils/100 WBC (Bld) 46.0 % Low 50.0-75.0 [facility] Comment on above: Performed By: #### A CHRIS, GFR, MDW, CMP, ADIFF, LIP, CBC ####[place] [address] [place], [place] [address] .GFRon 04-07-2024 GFR 63 ml/min/1.73sqm Normal [facility] Comment on above: Result Comment: GFR Population mean for , [...] 15 mL/min/1.73 square meters Performed By: #### A CHRIS, GFR, MDW, CMP, ADIFF, LIP, CBC ####[facility] [place], [place] [address] GFR Non- 52 ml/min/1.73sqm Normal [facility] Comment on above: Result Comment: GFR Population mean for , [...] 15 mL/min/1.73 square meters Performed By: #### A CHRIS, GFR, MDW, CMP, ADIFF, LIP, CBC ####[place] [place] [address] .MDWon 04-07-2024 Monocyte Distribution Width 20.00 Normal 0.00-20.00 [facility] Comment on above: Result Comment: For ED adult patients suspected of sepsis, MDW<=20.0 does not rule out sepsis or risk of sepsis Performed By: #### A CHRIS, GFR, MDW, CMP, ADIFF, LIP, CBC ####[place] [address] [address] .NEUABSon 04-07-2024 Neutrophil, Absolute 3.9 10 3/mcL Normal 2.3-8.1 [facility] Comment on above: Performed By: #### A CHRIS, GFR, MDW, CMP, ADIFF, LIP, CBC ####[place] [address] [address] .Urinalysis Microscopic (AO) on 04-07-2024 UA Bacteria 1+ /hpf Abnormal [facility] Comment on above: Performed By: #### U A, PREGU, UAMICAO ####[place] [address] [place] [address] UA RBC 0-5 Abnormal None Seen [facility] Comment on above: Performed By: #### U A, PREGU, UAMICAO ####[place] [place] [address] UA Squam Epithelial 5-10 Abnormal None Seen [facility] Comment on above: Performed By: #### U A, PREGU, UAMICAO ####[place] [place] [address] UA WBC 10-15 Abnormal None Seen [facility] Comment on above: Performed By: #### U A, PREGU, UAMICAO ####[place] [address] [address] CBCon 04-07-2024 Erythrocyte distribution width (RBC) [Ratio] 14.5 % Normal 11.5-15.5 [facility] Comment on above: Performed By: #### A CHRIS, GFR, MDW, CMP, ADIFF, LIP, CBC ####[place] [address] [place] [address] Hematocrit (Bld) [Volume fraction] 39.1 % Normal 34.0-46.0 [facility] Comment on above: Performed By: #### A CHRIS, GFR, MDW, CMP, ADIFF, LIP, CBC ####[place] [address] Hgb 13.4 G/dL Normal 12.0-16.0 [facility] Comment on above: Performed By: #### A CHRIS, GFR, MDW, CMP, ADIFF, LIP, CBC ####[place] [address] MCH (RBC) [Entitic mass] 30.9 pg Normal 27.0-33.0 [facility] Comment on above: Performed By: #### A CHRIS, GFR, MDW, CMP, ADIFF, LIP, CBC ####[place] [address] MCHC 34.4 G/dL Normal 32.0-36.0 [facility] Comment on above: Performed By: #### A CHRIS, GFR, MDW, CMP, ADIFF, LIP, CBC ####[place] [address] MCV (RBC) [Entitic vol] 90.1 fL Normal 80.0-99.0 [facility] Comment on above: Performed By: #### A CHRIS, GFR, MDW, CMP, ADIFF, LIP, CBC ####[place] [address] Platelet 228 10 3/mcL Normal 150-450 [facility] Comment on above: Performed By: #### A CHRIS, GFR, MDW, CMP, ADIFF, LIP, CBC ####[address] [address] Platelet mean volume (Bld) [Entitic vol] 8.1 fL Normal 6.6-10.5 [facility] Comment on above: Performed By: #### A CHRIS, GFR, MDW, CMP, ADIFF, LIP, CBC ####[address] [address] RBC 4.34 10 6/mcL Normal 4.10-5.30 [facility] Comment on above: Performed By: #### A CHRIS, GFR, MDW, CMP, ADIFF, LIP, CBC ####[place] [id number] WBC 8.5 10 3/mcL Normal 4.5-10.8 [facility] Comment on above: Performed By: #### A CHRIS, GFR, MDW, CMP, ADIFF, LIP, CBC ####[place] [phone] CMPon 04-07-2024 Albumin Level 3.7 G/dL Normal 3.5-5.0 [facility] Comment on above: Performed By: #### A CHRIS, GFR, MDW, CMP, ADIFF, LIP, CBC ####[place] [id number] Albumin/Globulin [Mass ratio] 1.0 {ratio} Low 1.1-2.5 [facility] Comment on above: Performed By: #### A CHRIS, GFR, MDW, CMP, ADIFF, LIP, CBC ####[address] [address] ALP [Catalytic activity/Vol] 99 U/L Normal 40-135 [facility] Comment on above: Performed By: #### A CHRIS, GFR, MDW, CMP, ADIFF, LIP, CBC ####[address] [address] ALT [Catalytic activity/Vol] 47 U/L Normal 14-59 [facility] Comment on above: Performed By: #### A CHRIS, GFR, MDW, CMP, ADIFF, LIP, CBC ####[facility] [place], [place] [address] AST [Catalytic activity/Vol] 21 U/L Normal 10-40 [facility] Comment on above: Performed By: #### A CHRIS, GFR, MDW, CMP, ADIFF, LIP, CBC ####[facility] [place], [place] [address] Bili Total 0.3 mg/dL Normal 0.2-1.0 [facility] Comment on above: Result Comment: Use of this assay is not recommended for patients undergoing treatment with eltrombopag due to the potential for falsely elevated results. Performed By: #### A CHRIS, GFR, MDW, CMP, ADIFF, LIP, CBC ####[place] [address] [place], [place] [address] BUN/Creatinine Ratio 14 ratio Normal 7-27 [facility] Comment on above: Performed By: #### A CHRIS, GFR, MDW, CMP, ADIFF, LIP, CBC ####[place] [address] [place], [place] [address] Calcium [Mass/Vol] 9.1 mg/dL Normal 8.4-10.2 [facility] Comment on above: Performed By: #### A CHRIS, GFR, MDW, CMP, ADIFF, LIP, CBC ####[facility] [place], [place] [address] Chloride [Moles/Vol] 101 mmol/L Normal 98-107 [facility] Comment on above: Performed By: #### A CHRIS, GFR, MDW, CMP, ADIFF, LIP, CBC ####[place] [address] [place], [place] [address] CO2 [Moles/Vol] 27 mmol/L Normal 22-29 [facility] Comment on above: Performed By: #### A CHRIS, GFR, MDW, CMP, ADIFF, LIP, CBC ####[facility] [place], [place] [address] Creatinine [Mass/Vol] 1.15 mg/dL High 0.55-1.02 [facility] Comment on above: Result Comment: Test ing performed on Siemens Dimension EXL analyzer using a modified kinetic Landon technique. Performed By: #### A CHRIS, GFR, MDW, CMP, ADIFF, LIP, CBC ####[place] [address] [place], [place] [address] Electrolyte Balance 7.0 mEq/L Normal 4.0-15.0 [facility] Comment on above: Performed By: #### A CHRIS, GFR, MDW, CMP, ADIFF, LIP, CBC ####[place] [address] [place], [place] [address] Globulin 3.6 G/dL Normal [facility] Comment on above: Performed By: #### A CHRIS, GFR, MDW, CMP, ADIFF, LIP, CBC ####[place] [address] [place], [place] [address] Glucose [Mass/Vol] 410 mg/dL Critically abnormal 70-105 [facility] Comment on above: Performed By: #### A CHRIS, GFR, MDW, CMP, ADIFF, LIP, CBC ####[address] [address] Potassium [Moles/Vol] 3.9 mmol/L Normal 3.5-5.1 [facility] Comment on above: Performed By: #### A CHRIS, GFR, MDW, CMP, ADIFF, LIP, CBC ####[place] [address] [place], [place] [address] Sodium [Moles/Vol] 135 mmol/L Low 136-145 [facility] Comment on above: Performed By: #### A CHRIS, GFR, MDW, CMP, ADIFF, LIP, CBC ####[place] [address] [place], [place] [address] Total Protein 7.3 G/dL Normal 6.4-8.2 [facility] Comment on above: Performed By: #### A CHRIS, GFR, MDW, CMP, ADIFF, LIP, CBC ####[address] [address] Urea nitrogen [Mass/Vol] 16 mg/dL Normal 7-18 [facility] Comment on above: Performed By: #### A CHRIS, GFR, MDW, CMP, ADIFF, LIP, CBC ####[facility] [place], [place] [address] CT ABD/PELVIS W/ IV CONTRAST ONLYon 04-07-2024 CT ABD/PELVIS W/ IV CONTRAST ONLY ORIGINAL EXAMINATION: CT OF THE ABDOMEN AND PELVIS WITH CONTRAST 04/07/2024 12:54 am TECHNIQUE: CT of the abdomen and pelvis was performed with the administration of intravenous contrast. Multiplanar reformatted images are provided for review. Automated exposure control, iterative reconstruction, and/or weight based adjustment of the mA/kV was utilized to reduce the radiation dose to as low as reasonably achievable. COMPARISON: CT abdomen and pelvis on 02/03/2024 HISTORY: ORDERING SYSTEM PROVIDED HISTORY: Reason for Exam: Right flank pain Nausea, vomiting, chills. FINDINGS: Lower Chest: No acute findings. Organs: The liver, post cholecystectomy biliary tree, pancreas, spleen, adrenal glands, and kidneys show no sign of acute abnormality. Nonobstructing stone in the lower pole the right kidney measuring 5 mm is unchanged. There is no ureteral stone or obstruction. GI/Bowel: The stomach and duodenum are unremarkable. There is no obstruction or inflammation of the small intestine. 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 There is a peristomal hernia with diameter of 13 cm that contains multiple loops of colon. The neck of this hernia is large and there is no obstruction or inflammation. The hernia is unchanged compared with prior exam. There is an umbilical hernia with diameter of 2.3 cm. The appendix protrudes into the umbilical hernia without inflammation. This is also unchanged. There is no free intraperitoneal air or abnormal fluid collection in the abdomen. Pelvis: Suprapubic catheter in the urinary bladder is in place. There is unchanged bladder wall thickening around the catheter balloon. Uterus and adnexal structures are unremarkable. There is no abnormal fluid collection in the pelvis. Peritoneum/Retroperitone um: There is no retroperitoneal lymph node enlargement. Abdominal aorta and inferior vena cava are normal in size. Bones/Soft Tissues: No acute osseous abnormality. IMPRESSION: 1. No acute intra-abdominal or pelvic abnormality. 2. 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 There is no obstruction or inflammation. 3. Umbilical hernia containing the appendix. There is no inflammation. 4. Suprapubic catheter in urinary bladder with unchanged bladder wall thickening. 5. Nonobstructing right kidney stone. Interpreted by: Oc Mae MD Preliminary Report By: Oc Mae MD Electronically signed By Oc Mae MD Dictated Date: 04/07/2024 12:56:01 AM Prelim Date: 04/07/2024 1:03:32 AM Sign Date: 04/07/2024 1:03:32 AM Ordering Provider: TYLER Eli [facility] LABORATORYOrdered By: SYSTEM SYSTEM on 04-07-2024 Albumin BCP dye [Mass/Vol] 3.7 G/dL Normal 3.5 - 5.0 G/dL AO ADM SS Albumin/Globulin [Mass ratio] 1.0 {ratio} Low 1.1 - 2.5 ratio AO ADM SS ALP [Catalytic activity/Vol] 99 U/L Normal 40 - 135 U/L AO ADM SS ALT With P-5'-P [Catalytic activity/Vol] 47 U/L Normal 14 - 59 U/L AO ADM SS AST With P-5'-P [Catalytic activity/Vol] 21 U/L Normal 10 - 40 U/L AO ADM SS Basophils (Bld) [#/Vol] 0.1 103/mcL Normal 0.0 - 0.2 10^3/mcL AO Workflow SS Basophils/100 WBC (Bld) 0.9 % Normal 0.0 - 2.5 % AO Workflow SS Bilirubin [Mass/Vol] 0.3 mg/dL Normal 0.2 - 1 .0 mg/dL AO ADM SS Comment on above: Interpretive Data: U se of this assay is not recommended for patients undergoing treatment with eltrombopag due to the potential for falsely elevated results. Calcium [Mass/Vol] 9.1 mg/dL Normal 8.4 - 10. 2 mg/dL AO ADM SS Chloride [Moles/Vol] 101 mmol/L Normal 98 - 10 7 mmol/L AO ADM SS CO2 [Moles/Vol] 27 mmol/L Normal 22 - 29 mmol/L AO ADM SS Creatinine [Mass/Vol] 1.15 mg/dL High 0.55 - 1.02 mg/dL AO ADM SS Comment on above: Interpretive Data: T esting performed on Siemens Dimension EXL analyzer using a modified kinetic Landon technique. Electrolyte Balance 7.0 mEq/L Normal 4.0 - 15 .0 mEq/L AO ADM SS Eosinophil, Absolute 0.1 103/mcL Normal 0.0 - 0 .7 10^3/mcL AO Workflow SS Eosinophils/100 WBC (Bld) 1.6 % Normal 0.0 - 7.0 % AO Workflow SS Erythrocyte distribution width (RBC) [Ratio] 14.5 % Normal 11.5 - 15.5 % AO Workflow SS GFR/1.73 sq M.predicted among blacks MDRD (S/P/Bld) [Vol rate/Area] 63 ml/min/1.73sqm Invalid Interpretation Code AO Chemistry S Comment on above: Interpretive Data: GFR Population mean for , Non- Americans Ages 20-29 = 116 mL/min/1.73 sq.m. Ages 30-39 = 107 mL/min/1.73 sq.m. Ages 40-49 = 99 mL/min/1.73 sq.m. Ages 50-59 = 93 mL/min/1.73 sq.m. Ages 60-69 = 85 mL/min/1.73 sq.m. Ages 70+ = 75 mL/min/1.73 sq.m. Chronic Kidney Disease: Less than 60 mL/min/1.73 square meters End Stage Renal Disease: Less than 15 mL/min/1.73 square meters GFR/1.73 sq M.predicted among non-blacks MDRD (S/P/Bld) [Vol rate/Area] 52 ml/min/1.73sqm Invalid Interpretation Code AO Chemistry S Comment on above: Interpretive Data: GFR Population mean for , Non- Americans Ages 20-29 = 116 mL/min/1.73 sq.m. Ages 30-39 = 107 mL/min/1.73 sq.m. Ages 40-49 = 99 mL/min/1.73 sq.m. Ages 50-59 = 93 mL/min/1.73 sq.m. Ages 60-69 = 85 mL/min/1.73 sq.m. Ages 70+ = 75 mL/min/1.73 sq.m. Chronic Kidney Disease: Less than 60 mL/min/1.73 square meters End Stage Renal Disease: Less than 15 mL/min/1.73 square meters Globulin 3.6 G/dL Invalid Interpretation Code AO ADM SS Glucose [Mass/Vol] 410 mg/dL Invalid Interpretation Code 70 - 105 mg/dL AO ADM SS Hematocrit (Bld) [Volume fraction] 39.1 % Normal 34.0 - 46.0 % AO Workflow SS Hemoglobin (Bld) [Mass/Vol] 13.4 G/dL Normal 12.0 - 16.0 G/dL AO Workflow SS Lipase [Catalytic activity/Vol] 74 U/L Normal 16 - 77 U/L AO ADM SS Lymphocytes (Bld) [#/Vol] 3.6 103/mcL Normal 0.9 - 4.3 10^3/mcL AO Workflow SS Lymphocytes/100 WBC (Bld) 41.9 % High 20.0 - 40.0 % AO Workflow SS MCH (RBC) [Entitic mass] 30.9 pg Normal 27.0 - 33.0 pg AO Workflow SS MCHC 34.4 G/dL Normal 32.0 - 36.0 G/dL AO Workflow SS MCV (RBC) [Entitic vol] 90.1 fL Normal 80.0 - 99.0 fL AO Workflow SS Monocyte distribution width Auto (Bld) [Entitic vol] 20.00 1 Normal 0.00 - 20.00 AO Workflow SS Comment on above: Result Comment: For ED adult patients suspected of sepsis, MDW<=20.0 does not rule out sepsis or risk of sepsis Monocytes (Bld) [#/Vol] 0.8 103/mcL Normal 0.1 - 1.4 10^3/mcL AO Workflow SS Monocytes/100 WBC (Bld) 9.6 % Normal 2.0 - 13.0 % AO Workflow SS Neutrophils (Bld) [#/Vol] 3.9 103/mcL Normal 2.3 - 8.1 10^3/mcL AO Workflow SS Neutrophils/100 WBC (Bld) 46.0 % Low 50.0 - 75.0 % AO Workflow SS Platelet mean volume (Bld) [Entitic vol] 8.1 fL Normal 6.6 - 10.5 fL AO Workflow SS Platelets (Bld) [#/Vol] 228 103/mcL Normal 150 - 450 10^3/mcL AO Workflow SS Potassium [Moles/Vol] 3.9 mmol/L Normal 3.5 - 5.1 mmol/L AO ADM SS Protein [Mass/Vol] 7.3 G/dL Normal 6.4 - 8.2 G/dL AO ADM SS RBC (Bld) [#/Vol] 4.34 106/mcL Normal 4.10 - 5.30 10^6/mcL AO Workflow SS Sodium [Moles/Vol] 135 mmol/L Low 136 - 145 mmol/L AO ADM SS Urea nitrogen [Mass/Vol] 16 mg/dL Normal 7 - 18 mg/dL AO ADM SS Urea nitrogen/Creatinine [Mass ratio] 14 ratio Normal 7 - 27 ratio AO ADM SS WBC (Bld) [#/Vol] 8.5 103/mcL Normal 4.5 - 10.8 10^3/mcL AO Workflow SS LABORATORYOrdered By: Rebecca Farrell on 04-07-2024 Appearance (U) Slightly Cloudy *ABN* (04/07/24 12:07 AM) Invalid Interpretation Code Clear AO Auto Urine SS Bacteria LM.HPF (Urine sed) [#/Area] 1 /[HPF] Invalid Interpretation Code AO Auto Urine SS Bilirubin Ql (U) Negative (04/07/24 12:07 AM) Normal Negative AO Auto Urine SS Color (U) Yellow (04/07/24 12:07 AM) Normal AO Auto Urine SS Glucose Test strip (U) [Mass/Vol] >=1000 mg/dL Invalid Interpretation Code Negative AO Auto Urine SS HCG ( test) Ql Negative (04/07/24 12:07 AM) Normal AO Manual Urine SS Hemoglobin Auto test strip (U) [Mass/Vol] Trace *ABN* (04/07/24 12:07 AM) Invalid Interpretation Code Negative AO Auto Urine SS Ketones Ql (U) Negative Normal Negative AO Auto Ur ine SS test (u) int Not detected Invalid Interpretation Code AO Manual Urine SS UA Leuk Est Small *ABN* (04/07/24 12:07 AM) Invalid Interpretation Code Negative AO Auto Urine SS UA Nitrite Positive *ABN* (04/07/24 12:07 AM) Invalid Interpretation Code Negative AO Auto Urine SS UA pH 6.0 (04/07/24 12:07 AM) Normal 5.0 - 8.0 AO Auto Urine SS UA Protein 30 mg/dL Normal Negative AO Auto Urine SS UA RBC 0-5 /HPF Invalid Interpretation Code None Seen AO Auto Urine SS UA Spec Grav 1.020 (04/07/24 12:07 AM) Normal 1.015-1.02 5 AO Auto Urine SS UA Specimen Type Cook Catheter (04/07/24 12:07 AM) Normal AO Auto Urine SS UA Squam Epithelial 5-10 /HPF Invalid Interpretation Code None Seen AO Auto Urine SS UA Urobilinogen 0.2 E.U./dL Normal 0.2-1.0 AO Auto Urine SS WBC LM.HPF (Urine sed) [#/Area] 10-15 /HPF Invalid Interpretation Code None Seen AO Auto Urine SS LIPon 04-07-2024 Lipase Level 74 U/L Normal 16-77 [facility] Comment on above: Performed By: #### A CHRIS, GFR, MDW, CMP, ADIFF, LIP, CBC ####[facility] [place], [place] [address] PREGUon 04-07-2024 HCG ( test) Ql (U) Negative Normal [facility] Comment on above: Performed By: #### U A, PREGU, UAMICAO ####[address] [place] [address] test (u) int Not detected Invalid Interpretation Code [facility] Comment on above: Performed By: #### U A, PREGU, UAMICAO ####[address] [place], [place] [address] UAon 04-07-2024 Color (U) Yellow Normal [facility] Comment on above: Performed By: #### U A, PREGU, UAMICAO ####[address] [place], [place] [address] Glucose (U) [Mass/Vol] mg/dL Abnormal Negative [facility] Comment on above: Performed By: #### U A, PREGU, UAMICAO ####[address] [place], [place] [address] Ketones Ql (U) Negative Normal Negative [facility] Comment on above: Performed By: #### U A, PREGU, UAMICAO ####[address] [place], [place] [address] UA Appear Slightly Cloudy Abnormal Clear [facility] Comment on above: Performed By: #### U A, PREGU, UAMICAO ####[address] [place], [place] [address] UA Blood Trace Abnormal Negative [facility] Comment on above: Performed By: #### U A, PREGU, UAMICAO ####[address] [place] [id number] UA Leuk Est Small Abnormal Negative [facility] Comment on above: Performed By: #### U A, PREGU, UAMICAO ####[address] [place] [address] UA Nitrite Positive Abnormal Negative [facility] Comment on above: Performed By: #### U A, PREGU, UAMICAO ####[address] [place] [address] UA pH 6.0 Normal 5.0 - 8.0 [facility] Comment on above: Performed By: #### U A, PREGU, UAMICAO ####[address]wat [address] [place] [address] UA Protein 30 mg/dL Normal Negative [facility] Comment on above: Performed By: #### U A, PREGU, UAMICAO ####[address] [place] [address] UA Spec Grav 1.020 Normal 1.015-1.02 5 [facility] Comment on above: Performed By: #### U A, PREGU, UAMICAO ####[address] [place] [address] UA Specimen Type Cook Catheter Normal [facility] Comment on above: Performed By: #### U A, PREGU, UAMICAO ####[address] [place] [address] UA Urobilinogen 0.2 E.U./dL Normal 0.2-1.0 [facility] Comment on above: Performed By: #### U A, PREGU, UAMICAO ####[address] [place] [address] Urobilinogen (U) [Mass/Vol] Negative Normal Negative [facility] Comment on above: Performed By: #### U JARED Morrow UAMICAO ####[address] [place], [place] [address] EGD Study observation Pepper irene 03-25-2024 [facility] Gastrointestinal Endoscopy Patient Name: Debby Bailon Procedure Date: 03/25/2024 8:25 AM Date of : 1980 Admit Type: Outpatient Age: 43 Gender: Female Note Status: Finalized Procedure: Upper GI endoscopy Indications: Dysphagia Providers: Xavier Josue MD Patient Profile: This is a 43 year old female. Refer to note in patient chart for documentation of history and physical. Referring Physician: Xavier Josue MD (Referring MD), Will Brannon (Referring MD) Medicines: Fentanyl 100 micrograms IV, Midazolam 5 mg IV, Diphenhydramine 50 mg IV, Benzocaine spray Complications: No immediate complications. Estimated blood loss: Minimal. Requesting Provider: Procedure: Pre-Anesthesia Assessment: - Prior to the procedure, a History and Physical was performed, and patient medications and allergies were reviewed. The patient's tolerance of previous anesthesia was also reviewed. The risks and benefits of the procedure and the sedation options and risks were discussed with the patient. All questions were answered, and informed consent was obtained. Prior Anticoagulants: The patient has taken Eliquis (apixaban), last dose was 4 days prior to procedure. ASA Grade Assessment: III - A patient with severe systemic disease. After reviewing the risks and benefits, the patient was deemed in satisfactory condition to undergo the procedure. After obtaining informed consent, the endoscope was passed under direct vision. Throughout the procedure, the patient's blood pressure, pulse, and oxygen saturations were monitored continuously. The Endoscope was introduced through the mouth, and advanced to the second part of duodenum. The upper GI endoscopy was accomplished without difficulty. The patient tolerated the procedure well. Moderate Sedation: The administration of moderate sedation was initiated at 08:48 AM. Moderate (conscious) sedation was personally administered by the endoscopist. The following parameters were monitored: oxygen saturation, heart rate, blood pressure, respiratory rate, EKG, adequacy of pulmonary ventilation, and response to care. Total physician intraservice time was 10 minutes. Findings: The Z-line was regular and was found 35 cm from the incisors. Biopsies were taken with a cold forceps for histology. A medium amount of food (residue) was found on the greater curvature of the stomach. Biopsies were taken with a cold forceps for Helicobacter pylori testing. The examined duodenum was normal. Biopsies for histology were taken with a cold forceps for evaluation of celiac disease. Impression: - Z-line regular, 35 cm from the incisors. Biopsied. - A medium amount of food (residue) in the stomach. Biopsied. - Normal examined duodenum. Biopsied. Recommendation: - Patient has a contact number available for emergencies. The signs and symptoms of potential delayed complications were discussed with the patient. Return to normal activities tomorrow. Written discharge instructions were provided to the patient. - Resume previous diet. - Continue present medications. - Await pathology results. - Repeat upper endoscopy PRN for surveillance. - Return to nurse practitioner at appointment to be scheduled. - Perform routine esophageal manometry at appointment to be scheduled. Procedure Code(s): --- Professional --- 64854, Esophagogastroduodenosco py, flexible, transoral; with biopsy, single or multiple G0500, Moderate sedation services provided by the same physician or other qualified health director career performing a gastrointestinal endoscopic service that sedation supports, requiring the (more content not included)... [employer] [facility] Radiology Study observation (narrative) [facility] .Urinalysis Microscopic (AO) on 02-26-2024 UA Bacteria 3+ /hpf Abnormal [facility] Comment on above: Performed By: #### P REGU, UA, UAMICAO ####Sarwat [address] [place], [place] [address] UA RBC 0-5 Abnormal None Seen [facility] Comment on above: Performed By: #### P REGU, UA, UAMICAO ####[address]wat [address] [place], [place] [address] UA Squam Epithelial 0-5 Abnormal None Seen [facility] Comment on above: Performed By: #### P REGU, UA, UAMICAO ####[address] [place], [place] [address] UA WBC LOADED Abnormal None Seen [facility] Comment on above: Performed By: #### P REGU, UA, UAMICAO ####[address] [place], [place] [address] PREGUon 02-26-2024 HCG ( test) Ql (U) Negative Normal [facility] Comment on above: Performed By: #### P REGU, UA, UAMICAO ####[address] [place] [address] test (u) int Not detected Invalid Interpretation Code [facility] Comment on above: Performed By: #### P REGU, UA, UAMICAO ####[address] [place] [address] UAon 02-26-2024 Color (U) Yellow Normal [facility] Comment on above: Performed By: #### P REGU, UA, UAMICAO ####[address] [place] [place] [address] Glucose (U) [Mass/Vol] 500 mg/dL Abnormal Negative [facility] Comment on above: Performed By: #### P REGU, UA, UAMICAO ####[address] [place] [address] Ketones Ql (U) Negative Normal Negative [facility] Comment on above: Performed By: #### P REGU, UA, UAMICAO ####Sarwat [address] [address] UA Appear Slightly Cloudy Abnormal Clear [facility] Comment on above: Performed By: #### P REGU, UA, UAMICAO ####[address] [place] [address] UA Blood Trace Abnormal Negative [facility] Comment on above: Performed By: #### P REGU, UA, UAMICAO ####[address] [place] [address] UA Leuk Est Small Abnormal Negative [facility] Comment on above: Performed By: #### P REGU, UA, UAMICAO ####[address] [place] [address] UA Nitrite Positive Abnormal Negative [facility] Comment on above: Performed By: #### P REGU, UA, UAMICAO ####[address] [address] UA pH 6.5 Normal 5.0 - 8.0 [facility] Comment on above: Performed By: #### P REGU, UA, UAMICAO ####[place] [address] [place], [place] [address] UA Protein 30 mg/dL Normal Negative [facility] Comment on above: Performed By: #### P REGU, UA, UAMICAO ####Sarwat [address] [address] UA Spec Grav 1.025 Normal 1.015-1.02 5 [facility] Comment on above: Performed By: #### P REGU, UA, UAMICAO ####[address] [place] [address] UA Specimen Type Cook Catheter Normal [facility] Comment on above: Performed By: #### P REGU, UA, UAMICAO ####[address] [address] UA Urobilinogen 0.2 E.U./dL Normal 0.2-1.0 [facility] Comment on above: Performed By: #### P REGU, UA, UAMICAO ####[place] [address] Urobilinogen (U) [Mass/Vol] Negative Normal Negative [facility] Comment on above: Performed By: #### P REGU, UA, UAMICAO ####[place] [address] LABORATORYOrdered By: Rebecca Farrell on 02-25-2024 Appearance (U) Slightly Cloudy *ABN* (02/25/24 11:42 PM) Invalid Interpretation Code Clear AO Auto Urine SS Bacteria LM.HPF (Urine sed) [#/Area] 3 /[HPF] Invalid Interpretation Code AO Auto Urine SS Bilirubin Ql (U) Negative (02/25/24 11:42 PM) Normal Negative AO Auto Urine SS Color (U) Yellow (02/25/24 11:42 PM) Normal AO Auto Urine SS Glucose Test strip (U) [Mass/Vol] 500 mg/dL Invalid Interpretation Code Negative AO Auto Urine SS HCG ( test) Ql Negative (02/25/24 11:42 PM) Normal AO Manual Urine SS Hemoglobin Auto test strip (U) [Mass/Vol] Trace *ABN* (02/25/24 11:42 PM) Invalid Interpretation Code Negative AO Auto Urine SS Ketones Ql (U) Negative Normal Negative AO Auto Ur ine SS test (u) int Not detected Invalid Interpretation Code AO Manual Urine SS UA Leuk Est Small *ABN* (02/25/24 11:42 PM) Invalid Interpretation Code Negative AO Auto Urine SS UA Nitrite Positive *ABN* (02/25/24 11:42 PM) Invalid Interpretation Code Negative AO Auto Urine SS UA pH 6.5 (02/25/24 11:42 PM) Normal 5.0 - 8.0 AO Auto Urine SS UA Protein 30 mg/dL Normal Negative AO Auto Urine SS UA RBC 0-5 /HPF Invalid Interpretation Code None Seen AO Auto Urine SS UA Spec Grav 1.025 (02/25/24 11:42 PM) Normal 1.015-1.02 5 AO Auto Urine SS UA Specimen Type Cook Catheter (02/25/24 11:42 PM) Normal AO Auto Urine SS UA Squam Epithelial 0-5 /HPF Invalid Interpretation Code None Seen AO Auto Urine SS UA Urobilinogen 0.2 E.U./dL Normal 0.2-1.0 AO Auto Urine SS WBC LM.HPF (Urine sed) [#/Area] LOADED /HPF Invalid Interpretation Code None Seen AO Auto Urine SS .Auto Diffon 02-03-2024 Basophil, Absolute 0.1 10 3/mcL Normal 0.0-0.2 [facility] Comment on above: Performed By: #### G FR, ANEU, LIP, MDW, CBC, CMP, ADIFF ####[address] [place], [place] [address] Basophils/100 WBC (Bld) 0.5 % Normal 0.0-2.5 A [facility] Comment on above: Performed By: #### G FR, ANEU, LIP, MDW, CBC, CMP, ADIFF ####Sarwat [address] [place] [address] Eosinophil, Absolute 0.2 10 3/mcL Normal 0.0-0.4 [facility] Comment on above: Performed By: #### G FR, ANEU, LIP, MDW, CBC, CMP, ADIFF ####[facility] [place], [place] [address] Eosinophils/100 WBC (Bld) 1.5 % Normal 0.0-7.0 [facility] Comment on above: Performed By: #### G FR, ANEU, LIP, MDW, CBC, CMP, ADIFF ####[facility] [place], [place] [address] Lymphocyte, Absolute 4.4 10 3/mcL High 0.8-3.9 [facility] Comment on above: Performed By: #### G FR, ANEU, LIP, MDW, CBC, CMP, ADIFF ####[place] [address] [place], [place] [address] Lymphocytes/100 WBC (Bld) 44.1 % Normal 10.0-50.0 [facility] Comment on above: Performed By: #### G FR, ANEU, LIP, MDW, CBC, CMP, ADIFF ####[facility] [place], [place] [address] Monocyte, Absolute 0.9 10 3/mcL Normal 0.2-1.0 [facility] Comment on above: Performed By: #### G FR, ANEU, LIP, MDW, CBC, CMP, ADIFF ####[facility] [place], [place] [address] Monocytes/100 WBC (Bld) 9.1 % Normal 1.7-13.0 [facility] Comment on above: Performed By: #### G FR, ANEU, LIP, MDW, CBC, CMP, ADIFF ####[facility] [place], [place] [address] Neutrophils/100 WBC (Bld) 44.8 % Normal 37.0-80.0 [facility] Comment on above: Performed By: #### G FR, ANEU, LIP, MDW, CBC, CMP, ADIFF ####[address] [place], [place] [address] .GFRon 02-03-2024 GFR 66 ml/min/1.73sqm Normal [facility] Comment on above: Result Comment: GFR Population mean for , [...] 15 mL/min/1.73 square meters Performed By: #### G FR, ANEU, JENNIFER, W, CBC, CMP, ADIFF ####[address] [place], [place] [address] GFR Non- 54 ml/min/1.73sqm Normal [facility] Comment on above: Result Comment: GFR Population mean for , [...] 15 mL/min/1.73 square meters Performed By: #### G FR, ANEU, LIP, MDW, CBC, CMP, ADIFF ####[address] [place], [place] [address] .MDWon 02-03-2024 Monocyte Distribution Width 19.38 Normal 0.00-20.00 [facility] Comment on above: Result Comment: For ED adult patients suspected of sepsis, MDW<=20.0 does not rule out sepsis or risk of sepsis Performed By: #### G , REJI, JENNIFER, W, CBC, CMP, ADIFF ####[place] [address] .NEUABSon 02-03-2024 Neutrophil, Absolute 4.4 10 3/mcL Normal 2.9-6.2 [facility] Comment on above: Performed By: #### G , REJI, JENNIFER, W, CBC, CMP, ADIFF ####[facility] [place] [address] .Urinalysis Microscopic (AO) on 02-03-2024 UA Bacteria 2+ /hpf Abnormal [facility] Comment on above: Performed By: #### Alexander Morrow UAMICAO, PREGU ####[place] [address] UA RBC 0-5 Abnormal None Seen [facility] Comment on above: Performed By: #### U A UAMICAO, PREGU ####[place] [address] UA Squam Epithelial 5-10 Abnormal None Seen [facility] Comment on above: Performed By: #### U A UAMICAO, PREGU ####[place] [address] UA WBC LOADED Abnormal None Seen [facility] [facility] Comment on above: Performed By: #### U A UAMICAO, PREGU ####[place] [address] CBCon 02-03-2024 Erythrocyte distribution width (RBC) [Ratio] 13.7 % Normal 11.5-14.5 [facility] Comment on above: Performed By: #### G FR, REJI, JENNIFER, W, CBC, CMP, ADIFF ####[place] [address] [place] [address] Hematocrit (Bld) [Volume fraction] 41.0 % Normal 37.0-47.0 [facility] Comment on above: Performed By: #### G FR, ANEU, LIP, MDW, CBC, CMP, ADIFF ####[place] [address] [place], [place] [address] Hgb 13.9 G/dL Normal 12.0-16.0 [facility] Comment on above: Performed By: #### G FR, ANEU, LIP, MDW, CBC, CMP, ADIFF ####[place] [address] [place] [address] MCH (RBC) [Entitic mass] 30.3 pg Normal 27.0-31.2 [facility] Comment on above: Performed By: #### G FR, ANEU, LIP, MDW, CBC, CMP, ADIFF ####[place] [address] [place] [address] MCHC 33.9 G/dL Normal 33.0-37.0 [facility] Comment on above: Performed By: #### G FR, ANEU, LIP, MDW, CBC, CMP, ADIFF ####[facility] [place] [address] MCV (RBC) [Entitic vol] 89.2 fL Normal 80.0-94.0 [facility] Comment on above: Performed By: #### G FR, ANEU, LIP, MDW, CBC, CMP, ADIFF ####[facility] [place], [place] [address] Platelet 178 10 3/mcL Normal 130-400 [facility] Comment on above: Performed By: #### G FR, ANEU, LIP, MDW, CBC, CMP, ADIFF ####[place] [address] [place], [place] [address] Platelet mean volume (Bld) [Entitic vol] 8.2 fL Normal 7.4-10.4 [facility] Comment on above: Performed By: #### G FR, ANEU, LIP, MDW, CBC, CMP, ADIFF ####[place] [address] [place] [id number] RBC 4.59 10 6/mcL Normal 4.20-5.40 [facility] Comment on above: Performed By: #### G FR, ANEU, LIP, MDW, CBC, CMP, ADIFF ####[place] [address] [place], [place] [address] WBC 9.9 10 3/mcL Normal 4.6-10.8 [facility] Comment on above: Performed By: #### G FR, ANEU, LIP, MDW, CBC, CMP, ADIFF ####[place] [address]fh[address] [place], [place] [address] CMPon 02-03-2024 Albumin Level 3.8 G/dL Normal 3.5-5.0 [facility] Comment on above: Performed By: #### G FR, ANEU, LIP, MDW, CBC, CMP, ADIFF ####[place] [address] [place], [place] [address] Albumin/Globulin [Mass ratio] 1.1 {ratio} Normal 1.1-2.5 [facility] Comment on above: Performed By: #### G FR, ANEU, LIP, MDW, CBC, CMP, ADIFF ####[place] [address] [place], [place] [address] ALP [Catalytic activity/Vol] 90 U/L Normal 40-135 [facility] Comment on above: Performed By: #### G FR, ANEU, LIP, MDW, CBC, CMP, ADIFF ####[place] [address] [place], [place] [address] ALT [Catalytic activity/Vol] 33 U/L Normal 14-59 [facility] Comment on above: Performed By: #### G FR, ANEU, LIP, MDW, CBC, CMP, ADIFF ####[place] [address] [place], [place] [address] AST [Catalytic activity/Vol] 14 U/L Normal 10-40 [facility] Comment on above: Performed By: #### G FR, ANEU, LIP, MDW, CBC, CMP, ADIFF ####[place] [address] [place], [place] [address] Bili Total 0.2 mg/dL Normal 0.2-1.0 [facility] Comment on above: Result Comment: Use of this assay is not recommended for patients undergoing treatment with eltrombopag due to the potential for falsely elevated results. Performed By: #### G FR, ANEU, LIP, MDW, CBC, CMP, ADIFF ####[place] [address] [place], [place] [address] BUN/Creatinine Ratio 15 ratio Normal 7-27 [facility] Comment on above: Performed By: #### G FR, ANEU, LIP, MDW, CBC, CMP, ADIFF ####[place] [address] [place], [place] [address] Calcium [Mass/Vol] 8.6 mg/dL Normal 8.4-10.2 [facility] Comment on above: Performed By: #### G FR, ANEU, LIP, MDW, CBC, CMP, ADIFF ####[place] [address] [place], [place] [address] Chloride [Moles/Vol] 98 mmol/L Normal 98-107 [facility] Comment on above: Performed By: #### G FR, ANEU, LIP, MDW, CBC, CMP, ADIFF ####[place] [address] [place], [place] [address] CO2 [Moles/Vol] 24 mmol/L Normal 22-29 [facility] Comment on above: Performed By: #### G FR, ANEU, LIP, MDW, CBC, CMP, ADIFF ####[place] [address] [place], [place] [address] Creatinine [Mass/Vol] 1.10 mg/dL High 0.55-1.02 [facility] Comment on above: Result Comment: Test ing performed on Siemens Dimension EXL analyzer using a modified kinetic Landon technique. Performed By: #### G FR, ANEU, LIP, MDW, CBC, CMP, ADIFF ####[place] [address] [place], [place] [address] Electrolyte Balance 11.0 mEq/L Normal 4.0-15.0 [facility] Comment on above: Performed By: #### G FR, ANEU, LIP, MDW, CBC, CMP, ADIFF ####[place] [address] [place], [place] [address] Globulin 3.6 G/dL Normal [facility] Comment on above: Performed By: #### G FR, ANEU, LIP, MDW, CBC, CMP, ADIFF ####[place] [address] [place], [place] [address] Glucose [Mass/Vol] 297 mg/dL High 70-105 [facility] Comment on above: Performed By: #### G FR, ANEU, LIP, MDW, CBC, CMP, ADIFF ####[place] [address] [place], [place] [address] Potassium [Moles/Vol] 3.6 mmol/L Normal 3.5-5.1 [facility] Comment on above: Performed By: #### G FR, ANEU, LIP, MDW, CBC, CMP, ADIFF ####[place] [address] [place], [place] [address] Sodium [Moles/Vol] 133 mmol/L Low 136-145 [facility] Comment on above: Performed By: #### G FR, ANEU, LIP, MDW, CBC, CMP, ADIFF ####[place] [address] [place], [place] [address] Total Protein 7.4 G/dL Normal 6.4-8.2 [facility] Comment on above: Performed By: #### G FR, ANEU, LIP, MDW, CBC, CMP, ADIFF ####[place] [address] [place], [place] [address] Urea nitrogen [Mass/Vol] 16 mg/dL Normal 7-18 [facility] Comment on above: Performed By: #### G FR, ANEU, LIP, MDW, CBC, CMP, ADIFF ####[place] [address] [place], [place] [address] CT ABD/PELVIS W/ IV CONTRAST ONLYon 02-03-2024 CT ABD/PELVIS W/ IV CONTRAST ONLY ORIGINAL EXAMINATION: CT OF THE ABDOMEN AND PELVIS WITH CONTRAST 02/03/2024 12:47 am TECHNIQUE: CT of the abdomen and pelvis was performed with the administration of intravenous contrast. Multiplanar reformatted images are provided for review. Automated exposure control, iterative reconstruction, and/or weight based adjustment of the mA/kV was utilized to reduce the radiation dose to as low as reasonably achievable. COMPARISON: CT abdomen pelvis November 17, 2023 HISTORY: ORDERING SYSTEM PROVIDED HISTORY: Reason for Exam: lower abdominal pain, hx of kidney infections abdominal pain FINDINGS: Lower Chest: No focal consolidation. 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 Right renal scarring. Small right renal cyst which does not require interval follow-up. Nonobstructing 0 4 cm nephrolithiasis in the right inferior pole. No hydronephrosis or hydroureter. Asymmetric mild enhancement to the right ureter and renal pelvis and calices. 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 Small to moderate fat containing umbilical hernia containing the appendix, the tip of which is very superficial and appears to be only covered by a thin layer of skin. Pete pouch. Pelvis: Supraumbilical catheter. Small amount air within the urinary bladder. Circumferential bladder wall thickening. Chronic solid lobular structure in the left adnexa; correlate with nonemergent outpatient pelvic ultrasound. Peritoneum/Retroperitone um: Nonaneurysmal abdominal aorta. No enlarged lymph nodes. Bones/Soft Tissues: Postsurgical changes of the lumbar spine. IMPRESSION: Circumferential bladder wall thickening, nonspecific although could reflect cystitis. Asymmetric mild right upper urinary tract wall enhancement, nonspecific although could reflect ascending urinary tract infection. Correlate with urinalysis. Additional findings as above. Interpreted by: Stephan Marshall Preliminary Report By: Stephan Marshall Electronically signed By Stephan Masrhall Dictated Date: 02/03/2024 12:49:48 AM Prelim Date: 02/03/2024 1:00:11 AM Sign Date: 02/03/2024 1:00:11 AM Ordering Provider: LUDWIG Eli [facility] LABORATORYOrdered By: SYSTEM SYSTEM on 02-03-2024 Albumin BCP dye [Mass/Vol] 3.8 G/dL Normal 3.5 - 5.0 G/dL AO ADM SS Albumin/Globulin [Mass ratio] 1.1 {ratio} Normal 1.1 - 2.5 ratio AO ADM SS ALP [Catalytic activity/Vol] 90 U/L Normal 40 - 135 U/L AO ADM SS ALT With P-5'-P [Catalytic activity/Vol] 33 U/L Normal 14 - 59 U/L AO ADM SS AST With P-5'-P [Catalytic activity/Vol] 14 U/L Normal 10 - 40 U/L AO ADM SS Basophils (Bld) [#/Vol] 0.1 103/mcL Normal 0.0 - 0.2 10^3/mcL AO Workflow SS Basophils/100 WBC (Bld) 0.5 % Normal 0.0 - 2.5 % AO Workflow SS Bilirubin [Mass/Vol] 0.2 mg/dL Normal 0.2 - 1 .0 mg/dL AO ADM SS Comment on above: Interpretive Data: U se of this assay is not recommended for patients undergoing treatment with eltrombopag due to the potential for falsely elevated results. Calcium [Mass/Vol] 8.6 mg/dL Normal 8.4 - 10. 2 mg/dL AO ADM SS Chloride [Moles/Vol] 98 mmol/L Normal 98 - 10 7 mmol/L AO ADM SS CO2 [Moles/Vol] 24 mmol/L Normal 22 - 29 mmol/L AO ADM SS Creatinine [Mass/Vol] 1.10 mg/dL High 0.55 - 1.02 mg/dL AO ADM SS Comment on above: Interpretive Data: T esting performed on Siemens Dimension EXL analyzer using a modified kinetic Landon technique. Electrolyte Balance 11.0 mEq/L Normal 4.0 - 15 .0 mEq/L AO ADM SS Eosinophil, Absolute 0.2 103/mcL Normal 0.0 - 0 .4 10^3/mcL AO Workflow SS Eosinophils/100 WBC (Bld) 1.5 % Normal 0.0 - 7.0 % AO Workflow SS Erythrocyte distribution width (RBC) [Ratio] 13.7 % Normal 11.5 - 14.5 % AO Workflow SS GFR/1.73 sq M.predicted among blacks MDRD (S/P/Bld) [Vol rate/Area] 66 ml/min/1.73sqm Invalid Interpretation Code AO Chemistry S Comment on above: Interpretive Data: GFR Population mean for , Non- Americans Ages 20-29 = 116 mL/min/1.73 sq.m. Ages 30-39 = 107 mL/min/1.73 sq.m. Ages 40-49 = 99 mL/min/1.73 sq.m. Ages 50-59 = 93 mL/min/1.73 sq.m. Ages 60-69 = 85 mL/min/1.73 sq.m. Ages 70+ = 75 mL/min/1.73 sq.m. Chronic Kidney Disease: Less than 60 mL/min/1.73 square meters End Stage Renal Disease: Less than 15 mL/min/1.73 square meters GFR/1.73 sq M.predicted among non-blacks MDRD (S/P/Bld) [Vol rate/Area] 54 ml/min/1.73sqm Invalid Interpretation Code AO Chemistry S Comment on above: Interpretive Data: GFR Population mean for , Non- Americans Ages 20-29 = 116 mL/min/1.73 sq.m. Ages 30-39 = 107 mL/min/1.73 sq.m. Ages 40-49 = 99 mL/min/1.73 sq.m. Ages 50-59 = 93 mL/min/1.73 sq.m. Ages 60-69 = 85 mL/min/1.73 sq.m. Ages 70+ = 75 mL/min/1.73 sq.m. Chronic Kidney Disease: Less than 60 mL/min/1.73 square meters End Stage Renal Disease: Less than 15 mL/min/1.73 square meters Globulin 3.6 G/dL Invalid Interpretation Code AO ADM SS Glucose [Mass/Vol] 297 mg/dL High 70 - 105 mg/dL AO ADM SS Hematocrit (Bld) [Volume fraction] 41.0 % Normal 37.0 - 47.0 % AO Workflow SS Hemoglobin (Bld) [Mass/Vol] 13.9 G/dL Normal 12.0 - 16.0 G/dL AO Workflow SS Lipase [Catalytic activity/Vol] 57 U/L Normal 16 - 77 U/L AO ADM SS Lymphocytes (Bld) [#/Vol] 4.4 103/mcL High 0.8 - 3.9 10^3/mcL AO Workflow SS Lymphocytes/100 WBC (Bld) 44.1 % Normal 10.0 - 50.0 % AO Workflow SS MCH (RBC) [Entitic mass] 30.3 pg Normal 27.0 - 31.2 pg AO Workflow SS MCHC 33.9 G/dL Normal 33.0 - 37.0 G/dL AO Workflow SS MCV (RBC) [Entitic vol] 89.2 fL Normal 80.0 - 94.0 fL AO Workflow SS Monocyte distribution width Auto (Bld) [Entitic vol] 19.38 1 Normal 0.00 - 20.00 AO Workflow SS Comment on above: Result Comment: For ED adult patients suspected of sepsis, MDW<=20.0 does not rule out sepsis or risk of sepsis Monocytes (Bld) [#/Vol] 0.9 103/mcL Normal 0.2 - 1.0 10^3/mcL AO Workflow SS Monocytes/100 WBC (Bld) 9.1 % Normal 1.7 - 13.0 % AO Workflow SS Neutrophils (Bld) [#/Vol] 4.4 103/mcL Normal 2.9 - 6.2 10^3/mcL AO Workflow SS Neutrophils/100 WBC (Bld) 44.8 % Normal 37.0 - 80.0 % AO Workflow SS Platelet mean volume (Bld) [Entitic vol] 8.2 fL Normal 7.4 - 10.4 fL AO Workflow SS Platelets (Bld) [#/Vol] 178 103/mcL Normal 130 - 400 10^3/mcL AO Workflow SS Potassium [Moles/Vol] 3.6 mmol/L Normal 3.5 - 5.1 mmol/L AO ADM SS Protein [Mass/Vol] 7.4 G/dL Normal 6.4 - 8.2 G/dL AO ADM SS RBC (Bld) [#/Vol] 4.59 106/mcL Normal 4.20 - 5.40 10^6/mcL AO Workflow SS Sodium [Moles/Vol] 133 mmol/L Low 136 - 145 mmol/L AO ADM SS Urea nitrogen [Mass/Vol] 16 mg/dL Normal 7 - 18 mg/dL AO ADM SS Urea nitrogen/Creatinine [Mass ratio] 15 ratio Normal 7 - 27 ratio AO ADM SS WBC (Bld) [#/Vol] 9.9 103/mcL Normal 4.6 - 10.8 10^3/mcL AO Workflow SS LIPon 02-03-2024 Lipase Level 57 U/L Normal 16-77 [facility] Comment on above: Performed By: #### G FR, ANEU, LIP, MDW, CBC, CMP, ADIFF ####[place] [id number] PREGUon 02-03-2024 HCG ( test) Ql (U) Negative Normal [facility] Comment on above: Performed By: #### U A, UAMICAO, PREGU ####[place] [place] [address] test (u) int Not detected Invalid Interpretation Code [facility] Comment on above: Performed By: #### U A, UAMICAO, PREGU ####[place] [address] [place] [address] UAon 02-03-2024 Color (U) Yellow Normal [facility] Comment on above: Performed By: #### U A, UAMICAO, PREGU ####[place] [address] Glucose (U) [Mass/Vol] mg/dL Abnormal Negative [facility] Comment on above: Performed By: #### U A, UAMICAO, PREGU ####[place] [address] Ketones Ql (U) Negative Normal Negative [facility] Comment on above: Performed By: #### U A, UAMICAO, PREGU ####[place] [address] UA Appear Slightly Cloudy Abnormal Clear [facility] Comment on above: Performed By: #### U A, UAMICAO, PREGU ####[place] [address] UA Blood Small Abnormal Negative [facility] Comment on above: Performed By: #### U A, UAMICAO, PREGU ####[place] [address] [place], [place] [address] UA Leuk Est Small Abnormal Negative [facility] Comment on above: Performed By: #### U A, UAMICAO, PREGU ####[place] [address] [place] [address] UA Nitrite Positive Abnormal Negative [facility] Comment on above: Performed By: #### U A, UAMICAO, PREGU ####[place] [address] [place], [place] [address] UA pH 6.5 Normal 5.0 - 8.0 [facility] Comment on above: Performed By: #### U A UAMICAO, PREGU ####[place] [address] [place], [place] [address] UA Protein 100 mg/dL Abnormal Negative [facility] Comment on above: Performed By: #### U A UAMICAO, PREGU ####[place] [address] [place], [place] [address] UA Spec Grav 1.020 Normal 1.015-1.02 5 [facility] Comment on above: Performed By: #### U A UAMICTITA, PREGU ####[place] [address] [place], [place] [address] UA Specimen Type Clean Catch Normal [facility] Comment on above: Performed By: #### U A UAMICTITA, PREGU ####[place] [address] [place], [place] [address] UA Urobilinogen 0.2 E.U./dL Normal 0.2-1.0 [facility] Comment on above: Performed By: #### U A UAMICTITA, PREGU ####[place] [address] [place], [place] [address] Urobilinogen (U) [Mass/Vol] Negative Normal Negative [facility] Comment on above: Performed By: #### U A UAMICAO, PREGU ####[place] [address] [place], [place] [address] LABORATORYOrdered By: Rebecca Farrell on 02-02-2024 Appearance (U) Slightly Cloudy *ABN* (02/02/24 11:58 PM) Invalid Interpretation Code Clear AO Auto Urine SS Bacteria LM.HPF (Urine sed) [#/Area] 2 /[HPF] Invalid Interpretation Code AO Auto Urine SS Bilirubin Ql (U) Negative (02/02/24 11:58 PM) Normal Negative AO Auto Urine SS Color (U) Yellow (02/02/24 11:58 PM) Normal AO Auto Urine SS Glucose Test strip (U) [Mass/Vol] >=1000 mg/dL Invalid Interpretation Code Negative AO Auto Urine SS HCG ( test) Ql Negative (02/02/24 11:58 PM) Normal AO Manual Urine SS Hemoglobin Auto test strip (U) [Mass/Vol] Small *ABN* (02/02/24 11:58 PM) Invalid Interpretation Code Negative AO Auto Urine SS Ketones Ql (U) Negative Normal Negative AO Auto Ur ine SS test (u) int Not detected Invalid Interpretation Code AO Manual Urine SS UA Leuk Est Small *ABN* (02/02/24 11:58 PM) Invalid Interpretation Code Negative AO Auto Urine SS UA Nitrite Positive *ABN* (02/02/24 11:58 PM) Invalid Interpretation Code Negative AO Auto Urine SS UA pH 6.5 (02/02/24 11:58 PM) Normal 5.0 - 8.0 AO Auto Urine SS UA Protein 100 mg/dL Invalid Interpretation Code Negative AO Auto Urine SS UA RBC 0-5 /HPF Invalid Interpretation Code None Seen AO Auto Urine SS UA Spec Grav 1.020 (02/02/24 11:58 PM) Normal 1.015-1.02 5 AO Auto Urine SS UA Specimen Type Clean Catch (02/02/24 11:58 PM) Normal AO Auto Urine SS UA Squam Epithelial 5-10 /HPF Invalid Interpretation Code None Seen AO Auto Urine SS UA Urobilinogen 0.2 E.U./dL Normal 0.2-1.0 AO Auto Urine SS WBC LM.HPF (Urine sed) [#/Area] LOADED /HPF Invalid Interpretation Code None Seen AO Auto Urine SS MISCon 11-28-2023 Misc. Send Out See Comments Normal [facility] ([place]) Comment on above: Order Comment: MPNP Result Comment: Comp lete reference lab report scanned to EMR. Performed By: #### M ISC ####[address] [address] PNHPNLon 11-27-2023 PNH Granulocyte Clone SEE COMMEN Normal [facility] ([place]) Comment on above: Result Comment: Comp lete reference lab report scanned to EMR. Performed By: #### G FR, MORPH, CMP, PNHPNL, DIFF, A1C, CBC ####[address] [address] PNH Panel by FCM Interpretation SEE COMMENT [facility] ([place]) Comment on above: Result Comment: Comp lete reference lab report scanned to EMR. Performed By: #### G FR, MORPH, CMP, PNHPNL, DIFF, A1C, CBC ####[facility] [place] [address] PNH Panel by FCM Reviewed by SEE COMMENT [facility] ([place]) Comment on above: Result Comment: Comp lete reference lab report scanned to EMR. Performed By: #### G FR, MORPH, CMP, PNHPNL, DIFF, A1C, CBC ####[facility] [place] [address] CBLon 11-23-2023 CBL [facility] ([place]) .[id number] 11-22-2023 Factor V Leiden Factor V Leiden PCR [facility] ([place]) Comment on above: Result Comment: Violetta pathak Accession Number: [id number]:NEGATIVEInterpretation:The DNA sample is negative for the c.1601G>A variant (legacy [id number]) in the Factor V (F5) gene. This variant is commonly known asFactor V Leiden. This result is not associated with an increased riskof thromboembolic disease. The Factor V Leiden assay will not detectindividuals with activated protein C resistance who do not have thec.1601G>A variant (less than 5% of those with activated protein Cresistance). These individuals may be identified by ordering thefunctional assay for Activated Protein C Resistance. Thromboembolicdisease is a multifactorial disorder, and other causes are notexcluded by this result.Methodology:Isolated genomic DNA from the patient's blood specimen is evaluatedfor the c.1601G>A (p.Uew310Frw;g.[id number]) variant of the F5 gene[RefSeq NM_[id number]; GRCh38/hg38] by multiplex polymerase chainreaction (PCR) followed by melting curve analysis.Limitations:This assay is designed to detect the c.1601G>A variant in the F5 gene.Uncommon variants or single nucleotide polymorphisms may affectbinding of probes and may rarely result in false negative, falsepositive or indeterminate results. This assay does not detect otherdisease-associated rare variants on F5 or other causes ofthromboembolic disease.Disclaimer:This test was developed and its performance characteristics determinedby [facility] [place] ([facility]). It has not been cleared or approved bythe FDA. [facility] is regulated under CLIA as certified to perform high-complexity testing. This test is used for clinical purposes. It shouldnot be regarded as investigational or for research.Testing and interpretation performed at [facility], [address] [place] [address]. CLIA Number: [id number]:1) Mary R, Jose G, Marcos P. The genetics of venous thromboembolism.A meta-analysis involving approximately 120,000 cases and 180,000controls. Thromb Haemost 2009;102(2):360-70.2) Inherited Thrombophilias in . AC PracticeBulletin.No.197.[place] [employer].Obstet Gynecol 2018;132:e18-34.3) [place]VE[place]. Factor V Leiden Thrombophilia. GenetMed.2011;13(1):1-16.4) Pharmacogenomics summary [email or web address] reviewed by Alexa Spear MD, PhDPerformed By:[facility] [id number] [facility].[address] Director: Seth Whalen III, M.D.CLIA#: [id number] Performed By: #### F [facility] ####[place] [address] .CCLPTGENon 11-22-2023 PT Gene Mut Prothrombin Gene Mutation Normal [facility] ([place]) Comment on above: Result Comment: Violetta pathak Accession Number: [id number]:NORMALInterpretation:The DNA sample is negative for the c.*97G>A variant (legacy jnis77743Q>A) in the 3' untranslated region of the Factor II (F2) gene.This result is not associated with an increased risk of thromboembolicdisease. Thromboembolic disease is a multifactorial disorder and othercauses are not excluded by this result.Methodology:Isolated Genomic DNA from the patient's blood specimen is evaluatedfor the c*97G>A (g.[id number]) variant of the F2 gene [RefSeqNM_[id number];GRCh38/hg38] by multiplex polymerase chain reaction(PCR) followed by melting curve analysis.Limitations:This assay is designed to detect the c.*97G>A (49064T>A) variant inthe F2 gene. Uncommon variants or single nucleotide polymorphisms mayaffect binding of probes and may rarely result in false negative,false positive or indeterminate results. This assay does not detectother disease-associated rare variants in F2 or other causes ofthromboembolic disease.Disclaimer:This test was developed and its performance characteristics determinedby [facility] [place] ([facility]). It has not been cleared or approved bythe FDA. [facility] is regulated under CLIA as certified to perform high-complexity testing. This test is used for clinical purposes. It shouldnot be regarded as investigational or for research.Testing [place] [address]. CLIA Number: [id number]:1) Inheritied Thrombophilias in . ACOG Practice Bulletin. No.197. [place] [employer]. ObseteGynecol 2018;132:e18-34.2) Davey SR, Yasmin FR, Edmund PH, and Yu MUHAMMAD. A commongenetic variation in the 3'-untranslated region of the prothrombingene is associated with elevated plasma prothrombin levels and anincrease in venous thrombosis. Blood 88:3698-703, 1995.3) Enrique I, Justin V, Fito C, Mian K. [id number]>T: 16 new cases, association with the 15410P>G polymorphism,and literature review. J Thromb Haemost. 2009;9:1585-7.As reviewed by Alexa Spear MD, PhDPerformed By:[facility] [id number] Director: Seth Whalen III, M.D.CLIA#: [id number] Performed By: #### P TGEN ####[address] [address] .GFRon 11-22-2023 GFR >60 Normal [facility] ([place]) Comment on above: Result Comment: GFR Population mean for , Non- Americans Ages 20-29 = 116 mL/min/1.73 sq.m. Ages 30-39 = 107 mL/min/1.73 sq.m. Ages 40-49 = 99 mL/min/1.73 sq.m. Ages 50-59 = 93 mL/min/1.73 sq.m. Ages 60-69 = 85 mL/min/1.73 sq.m. Ages 70+ = 75 mL/min/1.73 sq.m.Chronic Kidney Disease: Less than 60 mL/min/1.73 square metersEnd Stage Renal Disease: Less than 15 mL/min/1.73 square meters Performed By: #### D IFF, MORPH, BMP, GFR, CBC ####[place] [address] GFR Non- >60 Normal [facility] ([place]) Comment on above: Result Comment: GFR Population mean for , Non- Americans Ages 20-29 = 116 mL/min/1.73 sq.m. Ages 30-39 = 107 mL/min/1.73 sq.m. Ages 40-49 = 99 mL/min/1.73 sq.m. Ages 50-59 = 93 mL/min/1.73 sq.m. Ages 60-69 = 85 mL/min/1.73 sq.m. Ages 70+ = 75 mL/min/1.73 sq.m.Chronic Kidney Disease: Less than 60 mL/min/1.73 square metersEnd Stage Renal Disease: Less than 15 mL/min/1.73 square meters Performed By: #### D IFF, MORPH, BMP, GFR, CBC ####[address] [address] .Manual Diffon 11-22-2023 Bands 2.0 % Normal 0.0-5.0 [facility] ([place]) Comment on above: Performed By: #### D IFF, MORPH, BMP, GFR, CBC ####[address] [address] Basophil %, Manual 0.0 % Normal 0.0-2.5 [facility] ([place]) Comment on above: Performed By: #### D IFF, MORPH, BMP, GFR, CBC ####[address] [address] Basophil, Abs Manual 0.0 10 3/mcL Normal 0.0-0.3 [facility] ([place]) Comment on above: Performed By: #### D IFF, MORPH, BMP, GFR, CBC ####[address] [address] Eosinophil %, Manual 0.0 % Normal 0.0-6.0 [facility] ([place]) Comment on above: Performed By: #### D IFF, MORPH, BMP, GFR, CBC ####[address] [address] Eosinophil, Abs Manual 0.0 10 3/mcL Normal 0.0-0.7 [facility] ([place]) Comment on above: Performed By: #### D IFF, MORPH, BMP, GFR, CBC ####[address] [address] Lymphocyte %, Manual 67.0 % High 20.0-40.0 [facility] ([place]) Comment on above: Performed By: #### D IFF, MORPH, BMP, GFR, CBC ####[address] [address] Lymphocyte, Abs Manual 7.4 10 3/mcL High 0.9-4.3 [facility] ([place]) Comment on above: Performed By: #### D IFF, MORPH, BMP, GFR, CBC ####[address] [address] Monocyte %, Manual 7.0 % Normal 2.0-13.0 [facility] ([place]) Comment on above: Performed By: #### D IFF, MORPH, BMP, GFR, CBC ####[address] [address] Monocyte, Abs Manual 0.8 10 3/mcL Normal 0.1-1.4 [facility] ([place]) Comment on above: Performed By: #### D IFF, MORPH, BMP, GFR, CBC ####[place] [address] Neutrophil %, Manual 24.0 % Low 50.0-75.0 [facility] ([place]) Comment on above: Performed By: #### D IFF, MORPH, BMP, GFR, CBC ####[place] [address] Neutrophil, Abs Manual 2.8 10 3/mcL Normal 2.3-8.1 [facility] ([place]) Comment on above: Performed By: #### D IFF, MORPH, BMP, GFR, CBC ####[place] [address] Nucleated RBC 0.0 /100 WBC Normal [facility] ([place]) Comment on above: Performed By: #### D IFF, MORPH, BMP, GFR, CBC ####[place] [address] .Morphon 11-22-2023 Anisocytosis Ql (Bld) 1+ Normal [facility] ([place]) Comment on above: Performed By: #### D IFF, MORPH, BMP, GFR, CBC ####[place] [address] Platelet Estimate Normal Normal [facility] ([place]) Comment on above: Performed By: #### D IFF, MORPH, BMP, GFR, CBC ####[place] [address] Smudge Cells 1+ Normal [facility] ([place]) Comment on above: Performed By: #### D IFF, MORPH, BMP, GFR, CBC ####[place] [address] BMPon 11-22-2023 BUN/Creatinine Ratio 11.6 ratio Normal 10.0-22.0 [facility] ([place]) Comment on above: Performed By: #### D IFF, MORPH, BMP, GFR, CBC ####[place] [address] Calcium [Mass/Vol] 8.2 mg/dL Low 8.7-10.4 [facility] ([place]) Comment on above: Performed By: #### D IFF, MORPH, BMP, GFR, CBC ####[place] [address] Chloride [Moles/Vol] 104 mmol/L Normal 98-110 [facility] ([place]) Comment on above: Performed By: #### D IFF, MORPH, BMP, GFR, CBC ####[place] [id number] CO2 [Moles/Vol] 26 mmol/L Normal 22-32 [facility] ([place]) Comment on above: Performed By: #### D IFF, MORPH, BMP, GFR, CBC ####[address] [address] Creatinine [Mass/Vol] 0.69 mg/dL Normal 0.50-1.20 [facility] ([place]) Comment on above: Performed By: #### D IFF, MORPH, BMP, GFR, CBC ####[place] [address] Electrolyte Balance 10.0 mEq/L Normal 4.0-15.0 [facility] ([place]) Comment on above: Performed By: #### D IFF, MORPH, BMP, GFR, CBC ####[place] [address] Glucose [Mass/Vol] 105 mg/dL Normal 70-110 [facility] ([place]) Comment on above: Performed By: #### D IFF, MORPH, BMP, GFR, CBC ####[place] [address] Potassium [Moles/Vol] 3.7 mmol/L Normal 3.5-5.0 [facility] ([place]) Comment on above: Performed By: #### D IFF, MORPH, BMP, GFR, CBC ####[place] [address] Sodium [Moles/Vol] 140 mmol/L Normal 136-145 [facility] ([place]) Comment on above: Performed By: #### D IFF, MORPH, BMP, GFR, CBC ####[id number] [place], [place] [address] Urea nitrogen [Mass/Vol] 8.0 mg/dL Normal 8.0-22.0 [facility] ([place]) Comment on above: Performed By: #### D IFF, MORPH, BMP, GFR, CBC ####[place] [address] CBCon 11-22-2023 Erythrocyte distribution width (RBC) [Ratio] 15.9 % High 11.5-15.5 [facility] ([place]) Comment on above: Performed By: #### D IFF, MORPH, BMP, GFR, CBC ####[place] [address] Hematocrit (Bld) [Volume fraction] 35.5 % Normal 34.0-46.0 [facility] ([place]) Comment on above: Performed By: #### D IFF, MORPH, BMP, GFR, CBC ####[place] [address] Hgb 12.0 G/dL Normal 12.0-16.0 [facility] ([place]) Comment on above: Performed By: #### D IFF, MORPH, BMP, GFR, CBC ####[place] [address] MCH (RBC) [Entitic mass] 30.6 pg Normal 27.0-33.0 [facility] ([place]) Comment on above: Performed By: #### D IFF, MORPH, BMP, GFR, CBC ####[place] [address] MCHC 33.8 G/dL Normal 32.0-36.0 [facility] ([place]) Comment on above: Performed By: #### D IFF, MORPH, BMP, GFR, CBC ####[place] [address] MCV (RBC) [Entitic vol] 90.7 fL Normal 80.0-99.0 [facility] ([place]) Comment on above: Performed By: #### D IFF, MORPH, BMP, GFR, CBC ####[address] [address] Platelet 158 10 3/mcL Normal 150-450 [facility] ([place]) Comment on above: Performed By: #### D IFF, MORPH, BMP, GFR, CBC ####[address] [address] Platelet mean volume (Bld) [Entitic vol] 8.7 fL Normal 6.6-10.5 [facility] ([place]) Comment on above: Performed By: #### D IFF, MORPH, BMP, GFR, CBC ####[place] [address] RBC 3.92 10 6/mcL Low 4.10-5.30 [facility] ([place]) Comment on above: Performed By: #### D IFF, MORPH, BMP, GFR, CBC ####[address] [address] WBC 11.0 10 3/mcL High 4.5-10.8 [facility] ([place]) Comment on above: Performed By: #### D IFF, MORPH, BMP, GFR, CBC ####[address] [address] LABORATORYOrdered By: Leidy Rubalcava on 11-22-2023 Blood Glucose Testing Reason Routine (11/22/23 11:18 AM) [facility] Glucose [Mass/Vol] 173 mg/dL High 70 - 110 mg/dL [facility] Blood Glucose Testing Reason Routine (11/22/23 7:18 AM) [facility] Glucose [Mass/Vol] 105 mg/dL Normal 70 - 110 mg/dL [facility] LABORATORYOrdered By: SYSTEM SYSTEM on 11-22-2023 Anisocytosis Ql (Bld) 1+ *NA* (11/22/23 5:33 AM) Invalid Interpretation Code Workflow SS Band form neutrophils/100 WBC (Bld) 2.0 % Normal 0.0 - 5.0 % AH Workflow SS Basophils (Bld) [#/Vol] 0.0 103/mcL Normal 0.0 - 0.3 10^3/mcL AH Workflow SS Basophils/100 WBC (Bld) 0.0 % Normal 0.0 - 2.5 % AH Workflow SS Calcium [Mass/Vol] 8.2 mg/dL Low 8.7 - 10. 4 mg/dL ADM SS Chloride [Moles/Vol] 104 mmol/L Normal 98 - 11 0 mEq/L ADM SS CO2 [Moles/Vol] 26 mmol/L Normal 22 - 32 mEq/L ADM SS Creatinine [Mass/Vol] 0.69 mg/dL Normal 0.50 - 1.20 mg/dL ADM SS Electrolyte Balance 10.0 mEq/L Normal 4.0 - 15 .0 mEq/L ADM SS Eosinophils (Bld) [#/Vol] 0.0 103/mcL Normal 0.0 - 0.7 10^3/mcL AH Workflow SS Eosinophils/100 WBC (Bld) 0.0 % Normal 0.0 - 6.0 % AH Workflow SS Erythrocyte distribution width (RBC) [Ratio] 15.9 % High 11.5 - 15.5 % Workflow SS GFR/1.73 sq M.predicted among blacks MDRD (S/P/Bld) [Vol rate/Area] ml/min/1.73sqm Invalid Interpretation Code [employer] S Comment on above: Interpretive Data: GFR Population mean for , Non- Americans Ages 20-29 = 116 mL/min/1.73 sq.m. Ages 30-39 = 107 mL/min/1.73 sq.m. Ages 40-49 = 99 mL/min/1.73 sq.m. Ages 50-59 = 93 mL/min/1.73 sq.m. Ages 60-69 = 85 mL/min/1.73 sq.m. Ages 70+ = 75 mL/min/1.73 sq.m. Chronic Kidney Disease: Less than 60 mL/min/1.73 square meters End Stage Renal Disease: Less than 15 mL/min/1.73 square meters GFR/1.73 sq M.predicted among non-blacks MDRD (S/P/Bld) [Vol rate/Area] ml/min/1.73sqm Invalid Interpretation Code [employer] Chemistry S Comment on above: Interpretive Data: GFR Population mean for , Non- Americans Ages 20-29 = 116 mL/min/1.73 sq.m. Ages 30-39 = 107 mL/min/1.73 sq.m. Ages 40-49 = 99 mL/min/1.73 sq.m. Ages 50-59 = 93 mL/min/1.73 sq.m. Ages 60-69 = 85 mL/min/1.73 sq.m. Ages 70+ = 75 mL/min/1.73 sq.m. Chronic Kidney Disease: Less than 60 mL/min/1.73 square meters End Stage Renal Disease: Less than 15 mL/min/1.73 square meters Glucose [Mass/Vol] 105 mg/dL Normal 70 - 110 mg/dL AH ADM SS Hematocrit (Bld) [Volume fraction] 35.5 % Normal 34.0 - 46.0 % AH Workflow SS Hemoglobin (Bld) [Mass/Vol] 12.0 G/dL Normal 12.0 - 16.0 G/dL AH Workflow SS Lymphocytes (Bld) [#/Vol] 7.4 103/mcL High 0.9 - 4.3 10^3/mcL AH Workflow SS Lymphocytes/100 WBC (Bld) 67.0 % High 20.0 - 40.0 % AH Workflow SS MCH (RBC) [Entitic mass] 30.6 pg Normal 27.0 - 33.0 pg AH Workflow SS MCHC 33.8 G/dL Normal 32.0 - 36.0 G/dL AH Workflow SS MCV (RBC) [Entitic vol] 90.7 fL Normal 80.0 - 99.0 fL AH Workflow SS Monocytes (Bld) [#/Vol] 0.8 103/mcL Normal 0.1 - 1.4 10^3/mcL AH Workflow SS Monocytes/100 WBC (Bld) 7.0 % Normal 2.0 - 13.0 % AH Workflow SS Neutrophils (Bld) [#/Vol] 2.8 103/mcL Normal 2.3 - 8.1 10^3/mcL AH Workflow SS Neutrophils/100 WBC (Bld) 24.0 % Low 50.0 - 75.0 % AH Workflow SS Nucleated RBC 0.0 /100 WBC Invalid Interpretation Code AH Workflow SS Platelet mean volume (Bld) [Entitic vol] 8.7 fL Normal 6.6 - 10.5 fL AH Workflow SS Platelets (Bld) [#/Vol] 158 103/mcL Normal 150 - 450 10^3/mcL AH Workflow SS Platelets LM Ql (Bld) Normal *NA* (11/22/23 5:33 AM) Invalid Interpretation Code AH Workflow SS Potassium [Moles/Vol] 3.7 mmol/L Normal 3.5 - 5.0 mEq/L AH ADM SS RBC (Bld) [#/Vol] 3.92 106/mcL Low 4.10 - 5.30 10^6/mcL AH Workflow SS Smudge Cells 1+ *NA* (11/22/23 5:33 AM) Invalid Interpretation Code AH Workflow SS Sodium [Moles/Vol] 140 mmol/L Normal 136 - 145 mEq/L AH ADM SS Urea nitrogen [Mass/Vol] 8.0 mg/dL Normal 8.0 - 22.0 mg/dL AH ADM SS Urea nitrogen/Creatinine [Mass ratio] 11.6 ratio Normal 10.0 - 22.0 ratio AH ADM SS WBC (Bld) [#/Vol] 11.0 103/mcL High 4.5 - 10.8 10^3/mcL AH Workflow SS .GFRon 11-21-2023 GFR Non- >60 Normal [facility] ([place]) Comment on above: Result Comment: GFR Population mean for , Non- Americans Ages 20-29 = 116 mL/min/1.73 sq.m. Ages 30-39 = 107 mL/min/1.73 sq.m. Ages 40-49 = 99 mL/min/1.73 sq.m. Ages 50-59 = 93 mL/min/1.73 sq.m. Ages 60-69 = 85 mL/min/1.73 sq.m. Ages 70+ = 75 mL/min/1.73 sq.m.Chronic Kidney Disease: Less than 60 mL/min/1.73 square metersEnd Stage Renal Disease: Less than 15 mL/min/1.73 square meters Performed By: #### B MP, DIFF, CBC, MORPH, DIMER, GFR ####[place] [address] GFR >60 Normal [facility] ([place]) Comment on above: Result Comment: GFR Population mean for , Non- Americans Ages 20-29 = 116 mL/min/1.73 sq.m. Ages 30-39 = 107 mL/min/1.73 sq.m. Ages 40-49 = 99 mL/min/1.73 sq.m. Ages 50-59 = 93 mL/min/1.73 sq.m. Ages 60-69 = 85 mL/min/1.73 sq.m. Ages 70+ = 75 mL/min/1.73 sq.m.Chronic Kidney Disease: Less than 60 mL/min/1.73 square metersEnd Stage Renal Disease: Less than 15 mL/min/1.73 square meters Performed By: #### B MP, DIFF, CBC, MORPH, DIMER, GFR ####[place] [address] .Manual Diffon 11-21-2023 Atypical Lymphs 11.0 % High 0.0-5.0 [facility] ([place]) Comment on above: Performed By: #### B MP, DIFF, CBC, MORPH, DIMER, GFR ####[place] [address] Bands 1.0 % Normal 0.0-5.0 [facility] ([place]) Comment on above: Performed By: #### B MP, DIFF, CBC, MORPH, DIMER, GFR ####[place] [address] Basophil %, Manual 0.0 % Normal 0.0-2.5 [facility] ([place]) Comment on above: Performed By: #### B MP, DIFF, CBC, MORPH, DIMER, GFR ####[place] [address] Basophil, Abs Manual 0.0 10 3/mcL Normal 0.0-0.3 [facility] ([place]) Comment on above: Performed By: #### B MP, DIFF, CBC, MORPH, DIMER, GFR ####[place] [address] Eosinophil %, Manual 1.0 % Normal 0.0-6.0 [facility] ([place]) Comment on above: Performed By: #### B MP, DIFF, CBC, MORPH, DIMER, GFR ####[place] [address] Eosinophil, Abs Manual 0.1 10 3/mcL Normal 0.0-0.7 [facility] ([place]) Comment on above: Performed By: #### B MP, DIFF, CBC, MORPH, DIMER, GFR ####[address] [address] Lymphocyte %, Manual 49.0 % High 20.0-40.0 [facility] ([place]) Comment on above: Performed By: #### B MP, DIFF, CBC, MORPH, DIMER, GFR ####[address] [address] Lymphocyte, Abs Manual 4.8 10 3/mcL High 0.9-4.3 [facility] ([place]) Comment on above: Performed By: #### B MP, DIFF, CBC, MORPH, DIMER, GFR ####[address] [address] Monocyte %, Manual 16.0 % High 2.0-13.0 [facility] ([place]) Comment on above: Performed By: #### B MP, DIFF, CBC, MORPH, DIMER, GFR ####[address] [address] Monocyte, Abs Manual 1.5 10 3/mcL High 0.1-1.4 [facility] ([place]) Comment on above: Performed By: #### B MP, DIFF, CBC, MORPH, DIMER, GFR ####[address] [address] Neutrophil %, Manual 22.0 % Low 50.0-75.0 [facility] ([place]) Comment on above: Performed By: #### B MP, DIFF, CBC, MORPH, DIMER, GFR ####[address] [address] Neutrophil, Abs Manual 2.2 10 3/mcL Low 2.3-8.1 [facility] ([place]) Comment on above: Performed By: #### B MP, DIFF, CBC, MORPH, DIMER, GFR ####[address] [address] Nucleated RBC 0.0 /100 WBC Normal [facility] ([place]) Comment on above: Performed By: #### B MP, DIFF, CBC, MORPH, DIMER, GFR ####[address] [address] .Morphon 11-21-2023 Anisocytosis Ql (Bld) 1+ Normal [facility] ([place]) Comment on above: Performed By: #### B MP, DIFF, CBC, MORPH, DIMER, GFR ####[place] [address] Platelet Estimate Normal Normal [facility] ([place]) Comment on above: Performed By: #### B MP, DIFF, CBC, MORPH, DIMER, GFR ####[address] [address] BMPon 11-21-2023 BUN/Creatinine Ratio 9.7 ratio Low 10.0-22.0 [facility] ([place]) Comment on above: Performed By: #### B MP, DIFF, CBC, MORPH, DIMER, GFR ####[place] [address] Calcium [Mass/Vol] 8.2 mg/dL Low 8.7-10.4 [facility] ([place]) Comment on above: Performed By: #### B MP, DIFF, CBC, MORPH, DIMER, GFR ####[place] [address] Chloride [Moles/Vol] 107 mmol/L Normal 98-110 [facility] ([place]) Comment on above: Performed By: #### B MP, DIFF, CBC, MORPH, DIMER, GFR ####[place] [address] CO2 [Moles/Vol] 25 mmol/L Normal 22-32 [facility] ([place]) Comment on above: Performed By: #### B MP, DIFF, CBC, MORPH, DIMER, GFR ####[place] [address] Creatinine [Mass/Vol] 0.72 mg/dL Normal 0.50-1.20 [facility] ([place]) Comment on above: Performed By: #### B MP, DIFF, CBC, MORPH, DIMER, GFR ####[place] [address] Electrolyte Balance 8.0 mEq/L Normal 4.0-15.0 [facility] ([place]) Comment on above: Performed By: #### B MP, DIFF, CBC, MORPH, DIMER, GFR ####[place] [address] Glucose [Mass/Vol] 103 mg/dL Normal 70-110 [facility] ([place]) Comment on above: Performed By: #### B MP, DIFF, CBC, MORPH, DIMER, GFR ####[place] [address] Potassium [Moles/Vol] 3.9 mmol/L Normal 3.5-5.0 [facility] ([place] Comment on above: Performed By: #### B MP, DIFF, CBC, MORPH, DIMER, GFR ####[place] [address] Sodium [Moles/Vol] 140 mmol/L Normal 136-145 [facility] ([place]) Comment on above: Performed By: #### B MP, DIFF, CBC, MORPH, DIMER, GFR ####[place] [address] Urea nitrogen [Mass/Vol] 7.0 mg/dL Low 8.0-22.0 [facility] ([place]) Comment on above: Performed By: #### B MP, DIFF, CBC, MORPH, DIMER, GFR ####[place] [address] CBCon 11-21-2023 Erythrocyte distribution width (RBC) [Ratio] 15.7 % High 11.5-15.5 [facility] ([place]) Comment on above: Performed By: #### B MP, DIFF, CBC, MORPH, DIMER, GFR ####[place] [address] Hematocrit (Bld) [Volume fraction] 34.1 % Normal 34.0-46.0 [facility] ([place]) Comment on above: Performed By: #### B MP, DIFF, CBC, MORPH, DIMER, GFR ####[place] [address] Hgb 11.5 G/dL Low 12.0-16.0 [facility] ([place]) Comment on above: Performed By: #### B MP, DIFF, CBC, MORPH, DIMER, GFR ####[place] [address] MCH (RBC) [Entitic mass] 30.3 pg Normal 27.0-33.0 [facility] ([place]) Comment on above: Performed By: #### B MP, DIFF, CBC, MORPH, DIMER, GFR ####[place] [address] MCHC 33.8 G/dL Normal 32.0-36.0 [facility] ([place]) Comment on above: Performed By: #### B MP, DIFF, CBC, MORPH, DIMER, GFR ####[place] [address] MCV (RBC) [Entitic vol] 89.9 fL Normal 80.0-99.0 [facility] ([place]) Comment on above: Performed By: #### B MP, DIFF, CBC, MORPH, DIMER, GFR ####[place] [address] Platelet 165 10 3/mcL Normal 150-450 [facility] ([place]) Comment on above: Performed By: #### B MP, DIFF, CBC, MORPH, DIMER, GFR ####[place] [address] Platelet mean volume (Bld) [Entitic vol] 8.1 fL Normal 6.6-10.5 [facility] ([place]) Comment on above: Performed By: #### B MP, DIFF, CBC, MORPH, DIMER, GFR ####[place] [address] RBC 3.80 10 6/mcL Low 4.10-5.30 [facility] ([place]) Comment on above: Performed By: #### B MP, DIFF, CBC, MORPH, DIMER, GFR ####[place] [address] WBC 9.7 10 3/mcL Normal 4.5-10.8 [facility] ([place]) Comment on above: Performed By: #### B MP, DIFF, CBC, MORPH, DIMER, GFR ####[place] [address] CDCONFon 11-21-2023 CDCONF Normal [facility] ([place]) CDIFPCRon 11-21-2023 Clostridium difficile PCR Positive Abnormal Negative [facility]) Comment on above: Result Comment: [place] [id number] Performed By: #### C DIFPCR ####[place] [address] Clostridium difficile PCR Int Normal [facility] ([place]) Comment on above: Result Comment: tcdB gene DNA detected. C. difficile toxigenic confirmatory assay ordered. Results to follow.A positive C. difficile assay detection result does not necessarily indicate the presence of viable organisms. It does however indicate the presence of the tcdB gene and allows for the presumptive detection of the Clostridium difficile toxigenic organism.This assay can not be used for species identification as it does not contain primers and probes specific to Clostridium difficile.As with all PCR based in vitro diagnostic tests, extremely low levels of target below the limit of detection of the assay may be detected, but results may not be reproducible.Infection control will be notified.See Below Performed By: #### C DIFPCR ####[place] [address] CURon 11-21-2023 CUR Normal [facility] ([place]) DIMERon 11-21-2023 D-Dimer 3711 ng/mL D-DU High 0-230 [facility]) Comment on above: Result Comment: Resu lts reported in D-DU ng/mL.Positive for D-dimer. A positive D-Dimer may occur in the following:DVT, PE, DIC, Trauma, Cancer, Sepsis, , Rheumatoid arthritis, Myocardial infarction and Cirrhosis. The presence of Rheumatoid Factor and HAMA (human mouse antibody) produces an overestimation of test results.The result of the D-Dimer test should be evaluated in the context of all the clinical and laboratory data available.In those instances where the laboratory result does not agree with the clinical evaluation, additional tests shouldbe performed accordingly. Performed By: #### B MP, DIFF, CBC, MORPH, DIMER, GFR ####[place] [address] LABORATORYOrdered By: Adelita Carey on 11-21-2023 Blood Glucose Testing Reason Routine (11/21/23 11:10 PM) [facility] Glucose [Mass/Vol] 130 mg/dL High 70 - 110 mg/dL [facility] LABORATORYOrdered By: Seth Marsh on 11-21-2023 Adenovirus 40+41 DNA MALIK+non-probe Ql (Stl) Not Detected *NA* (11/21/23 8:04 PM) Invalid Interpretation Code Not Detected AH Auto Microbiology GL SS Astrovirus subtypes 1-8 RNA MALIK+non-probe Ql (Stl) Not Detected *NA* (11/21/23 8:04 PM) Invalid Interpretation Code Not Detected AH Auto Microbiology GL SS C. cayetanensis DNA MALIK+non-probe Ql (Stl) Not Detected *NA* (11/21/23 8:04 PM) Invalid Interpretation Code Not Detected AH Auto Microbiology GL SS C. coli+jejuni+upsaliensis DNA MALIK+non-probe Ql (Stl) Not Detected *NA* (11/21/23 8:04 PM) Invalid Interpretation Code Not Detected AH Auto Microbiology GL SS Cryptosporidium sp DNA MALIK+non-probe Ql (Stl) Not Detected *NA* (11/21/23 8:04 PM) Invalid Interpretation Code Not Detected AH Auto Microbiology GL SS E. coli enteroaggregative Mauro plasmid aggR+aatA genes MALIK+non-probe Ql (Stl) Not Detected *NA* (11/21/23 8:04 PM) Invalid Interpretation Code Not Detected AH Auto Microbiology GL SS E. coli enteropathogenic eae gene MALIK+non-probe Ql (Stl) Not Detected *NA* (11/21/23 8:04 PM) Invalid Interpretation Code Not Detected AH Auto Microbiology GL SS E. coli enterotoxigenic ltA+st1a+st1b genes MALIK+non-probe Ql (Stl) Not Detected *NA* (11/21/23 8:04 PM) Invalid Interpretation Code Not Detected AH Auto Microbiology GL SS E. coli O157 DNA MALIK+non-probe Ql (Stl) Not Applicable (11/21/23 8:04 PM) Normal Not Detected AH Auto Microbiology GL SS E. coli stx1+stx2 genes MALIK+non-probe Ql (Stl) Not Detected *NA* (11/21/23 8:04 PM) Invalid Interpretation Code Not Detected AH Auto Microbiology GL SS E. histolytica DNA MALIK+non-probe Ql (Stl) Not Detected *NA* (11/21/23 8:04 PM) Invalid Interpretation Code Not Detected AH Auto Microbiology GL SS G. lamblia DNA MALIK+non-probe Ql (Stl) Not Detected *NA* (11/21/23 8:04 PM) Invalid Interpretation Code Not Detected AH Auto Microbiology GL SS Norovirus genogroup I+II RNA MALIK+non-probe Ql (Stl) see below Invalid Interpretation Code Not Detected AH Auto Microbiology GL SS Comment on above: Result Comment: The custody assistant of the Stool GI PCR panel has identified an increase of potential false positive results for Norovirus. A Norovirus positive result should correlate with the patient s clinical history and presentation, along with travel history and disease severity. Plesiomonas shigelloides Not Detected *NA* (11/21/23 8:04 PM) Invalid Interpretation Code Not Detected AH Auto Microbiology GL SS Rotavirus A RNA MALIK+non-probe Ql (Stl) Not Detected *NA* (11/21/23 8:04 PM) Invalid Interpretation Code Not Detected [facility] GL SS S. enterica+bongori DNA MALIK+non-probe Ql (Stl) Not Detected *NA* (11/21/23 8:04 PM) Invalid Interpretation Code Not Detected [facility] GL SS Sapovirus genogroups I+II+IV+V RNA MALIK+non-probe Ql (Stl) Not Detected *NA* (11/21/23 8:04 PM) Invalid Interpretation Code Not Detected [facility] GL SS Shigella species+EIEC invasion plasmid antigen H ipaH gene MALIK+non-probe Ql (Stl) Not Detected *NA* (11/21/23 8:04 PM) Invalid Interpretation Code Not Detected [facility] GL SS Stool GI Comment See Comment 3 (11/21/23 8:04 PM) Normal [facility] GL SS Comment on above: Interpretive Data: V irus, bacteria, and parasite nucleic acid may persist in vivo independently of organism viability. Negative Film Array GI panel results in the setting of clinical illness compatible with gastroenteritis may be due to infection by pathogens that are not detected by this test. False negatives may occur due to genetic variability in the region targeted by the primers. V. cholerae DNA MALIK+non-probe Ql (Stl) Not Detected *NA* (11/21/23 8:04 PM) Invalid Interpretation Code Not Detected AH Auto Microbiology GL SS V. cholerae+parahaemolytic us+vulnificus DNA MALIK+non-probe Ql (Stl) Not Detected *NA* (11/21/23 8:04 PM) Invalid Interpretation Code Not Detected AH Auto Microbiology GL SS Y. enterocolitica DNA MALIK+non-probe Ql (Stl) Not Detected *NA* (11/21/23 8:04 PM) Invalid Interpretation Code Not Detected AH Auto Microbiology GL SS LABORATORYOrdered By: Dl Anderson on 11-21-2023 Clostridium difficile PCR Positive 1 *ABN* (11/21/23 8:04 PM) Invalid Interpretation Code Negative Auto Viro/Sero SS Comment on above: Result Comment: Note s [id number] Clostridium difficile PCR Int tcdB gene DNA detected. C. difficile toxigenic confirmatory assay ordered. Results to follow.A positive C. difficile assay detection result does not necessarily indicate the presence of viable organisms. It does however indicate the presence of the tcdB gene and allows for the presumptive detection of the Clostridium difficile toxigenic organism.This assay can not be used for species identification as it does not contain primers and probes specific to Clostridium difficile.As with all PCR based in vitro diagnostic tests, extremely low levels of target below the limit of detection of the assay may be detected, but results may not be reproducible.Infection control will be notified. Invalid Interpretation Code Auto Viro/Sero SS LABORATORYOrdered By: SYSTEM SYSTEM on 11-21-2023 Anisocytosis Ql (Bld) 1+ *NA* (11/21/23 4:18 AM) Invalid Interpretation Code AH Workflow SS Band form neutrophils/100 WBC (Bld) 1.0 % Normal 0.0 - 5.0 % AH Workflow SS Basophils (Bld) [#/Vol] 0.0 103/mcL Normal 0.0 - 0.3 10^3/mcL AH Workflow SS Basophils/100 WBC (Bld) 0.0 % Normal 0.0 - 2.5 % AH Workflow SS Calcium [Mass/Vol] 8.2 mg/dL Low 8.7 - 10. 4 mg/dL ADM SS Chloride [Moles/Vol] 107 mmol/L Normal 98 - 11 0 mEq/L ADM SS CO2 [Moles/Vol] 25 mmol/L Normal 22 - 32 mEq/L ADM SS Creatinine [Mass/Vol] 0.72 mg/dL Normal 0.50 - 1.20 mg/dL ADM SS Electrolyte Balance 8.0 mEq/L Normal 4.0 - 15 .0 mEq/L ADM SS Eosinophils (Bld) [#/Vol] 0.1 103/mcL Normal 0.0 - 0.7 10^3/mcL Workflow SS Eosinophils/100 WBC (Bld) 1.0 % Normal 0.0 - 6.0 % Workflow SS Erythrocyte distribution width (RBC) [Ratio] 15.7 % High 11.5 - 15.5 % Workflow SS GFR/1.73 sq M.predicted among blacks MDRD (S/P/Bld) [Vol rate/Area] ml/min/1.73sqm Invalid Interpretation Code NeoAccel Chemistry S Comment on above: Interpretive Data: GFR Population mean for , Non- Americans Ages 20-29 = 116 mL/min/1.73 sq.m. Ages 30-39 = 107 mL/min/1.73 sq.m. Ages 40-49 = 99 mL/min/1.73 sq.m. Ages 50-59 = 93 mL/min/1.73 sq.m. Ages 60-69 = 85 mL/min/1.73 sq.m. Ages 70+ = 75 mL/min/1.73 sq.m. Chronic Kidney Disease: Less than 60 mL/min/1.73 square meters End Stage Renal Disease: Less than 15 mL/min/1.73 square meters GFR/1.73 sq M.predicted among non-blacks MDRD (S/P/Bld) [Vol rate/Area] ml/min/1.73sqm Invalid Interpretation Code NeoAccel Chemistry S Comment on above: Interpretive Data: GFR Population mean for , Non- Americans Ages 20-29 = 116 mL/min/1.73 sq.m. Ages 30-39 = 107 mL/min/1.73 sq.m. Ages 40-49 = 99 mL/min/1.73 sq.m. Ages 50-59 = 93 mL/min/1.73 sq.m. Ages 60-69 = 85 mL/min/1.73 sq.m. Ages 70+ = 75 mL/min/1.73 sq.m. Chronic Kidney Disease: Less than 60 mL/min/1.73 square meters End Stage Renal Disease: Less than 15 mL/min/1.73 square meters Glucose [Mass/Vol] 103 mg/dL Normal 70 - 110 mg/dL AH ADM SS Hematocrit (Bld) [Volume fraction] 34.1 % Normal 34.0 - 46.0 % AH Workflow SS Hemoglobin (Bld) [Mass/Vol] 11.5 G/dL Low 12.0 - 16.0 G/dL AH Workflow SS Lymphocytes (Bld) [#/Vol] 4.8 103/mcL High 0.9 - 4.3 10^3/mcL AH Workflow SS Lymphocytes/100 WBC (Bld) 49.0 % High 20.0 - 40.0 % AH Workflow SS MCH (RBC) [Entitic mass] 30.3 pg Normal 27.0 - 33.0 pg AH Workflow SS MCHC 33.8 G/dL Normal 32.0 - 36.0 G/dL AH Workflow SS MCV (RBC) [Entitic vol] 89.9 fL Normal 80.0 - 99.0 fL AH Workflow SS Monocytes (Bld) [#/Vol] 1.5 103/mcL High 0.1 - 1.4 10^3/mcL AH Workflow SS Monocytes/100 WBC (Bld) 16.0 % High 2.0 - 13.0 % AH Workflow SS Neutrophils (Bld) [#/Vol] 2.2 103/mcL Low 2.3 - 8.1 10^3/mcL AH Workflow SS Neutrophils/100 WBC (Bld) 22.0 % Low 50.0 - 75.0 % AH Workflow SS Nucleated RBC 0.0 /100 WBC Invalid Interpretation Code AH Workflow SS Platelet mean volume (Bld) [Entitic vol] 8.1 fL Normal 6.6 - 10.5 fL AH Workflow SS Platelets (Bld) [#/Vol] 165 103/mcL Normal 150 - 450 10^3/mcL AH Workflow SS Platelets LM Ql (Bld) Normal *NA* (11/21/23 4:18 AM) Invalid Interpretation Code AH Workflow SS Potassium [Moles/Vol] 3.9 mmol/L Normal 3.5 - 5.0 mEq/L AH ADM SS RBC (Bld) [#/Vol] 3.80 106/mcL Low 4.10 - 5.30 10^6/mcL Workflow SS Sodium [Moles/Vol] 140 mmol/L Normal 136 - 145 mEq/L AH ADM SS Urea nitrogen [Mass/Vol] 7.0 mg/dL Low 8.0 - 22.0 mg/dL AH ADM SS Urea nitrogen/Creatinine [Mass ratio] 9.7 ratio Low 10.0 - 22.0 ratio ADM SS Variant lymphocytes/100 WBC (Bld) 11.0 % High 0.0 - 5.0 % Workflow SS WBC (Bld) [#/Vol] 9.7 103/mcL Normal 4.5 - 10.8 10^3/mcL Workflow SS LABORATORYOrdered By: Alyssa Steen on 11-21-2023 D-Dimer 3711 ng/mL D-DU High 0 - 230 ng/mL D-DU [facility]oHub SS Comment on above: Result Comment: Resu lts reported in D-DU ng/mL. Positive for D-dimer. A positive D-Dimer may occur in the following: DVT, PE, DIC, Trauma, Cancer, Sepsis, , Rheumatoid arthritis, Myocardial infarction and Cirrhosis. The presence of Rheumatoid Factor and HAMA (human mouse antibody) produces an overestimation of test results. Interpretive Data: T he result of the D-Dimer test should be evaluated in the context of all the clinical and laboratory data available. In those instances where the laboratory result does not agree with the clinical evaluation, additional tests should be performed accordingly. No Panel Informationon 11-20 Clostridium difficile Toxin Confirmation Clostridium difficile toxin present Toxin A/B Confirmatory Assay: Positive Positive for toxigenic C. difficile. (active toxin production present) Infection Control has been notified. [facility] Comment on above: The C.DIFF QUIK CHEC K COMPLETE TEST is used to detect C. difficile antigen and toxin(s) in fecal specimens. The test confirms the presence of toxin in feces and this information should be taken under consideration by the physician in light of the clinical history and physical examination of the patient. Fecal specimens are extremely complex. Optimal results with the C. DIFF CHECK COMPLETE test are obtained with specimens that are less than 24 hours old. No data exists on the effects of colonic washes, barium enemas, laxitive, or bowel preperations on the performance of the C. DIFF QUICK CHECK COMPLETE test. All of these procedures can result in extensive dilution or the presence of additives that may affect test performance. STGCR 11-21-2023 Adenovirus F 40/41 Not detected Normal Not Detected [facility] ([place]) Comment on above: Performed By: #### S TGIPCR ####[place] [address] Astrovirus Not detected Normal Not Detected [facility] ([place]) Comment on above: Performed By: #### S TGIPCR ####[place] [address] Campy (jejuni/coli/ups) Not detected Normal Not Detected [facility] ([place]) Comment on above: Performed By: #### S TGIPCR ####[place] [address] Cryptosporidium Not detected Normal Not Detected [facility] ([place]) Comment on above: Performed By: #### S TGIPCR ####[place] [address] Cyclospora Not detected Normal Not Detected [facility] ([place]) Comment on above: Performed By: #### S TGIPCR ####[place] [address] E. coli (ETEC) Not detected Normal Not Detected [facility] ([place]) Comment on above: Performed By: #### S TGIPCR ####[place] [address] E. coli O157 Not Applicable Normal Not Detected [facility] ([place]) Comment on above: Performed By: #### S TGIPCR ####[place] [address] Entamoeba histolytica Not detected Normal Not Detected [facility] ([place]) Comment on above: Performed By: #### S TGIPCR ####[place] [address] Enteroaggregative E. coli (EAEC) Not detected Normal Not Detected [facility] ([place]) Comment on above: Performed By: #### S TGIPCR ####[place] [address] Enteropathogenic E. coli (EPEC) Not detected Normal Not Detected [facility] ([place]) Comment on above: Performed By: #### S TGIPCR ####[place] [address] Giardia lamblia Not detected Normal Not Detected [facility] ([place]) Comment on above: Performed By: #### S TGIPCR ####[place] [address] Norovirus GI/GII see below Normal Not Detected [facility] ([place]) Comment on above: Result Comment: The custody assistant of the Stool GI PCR panel has identified an increase of potential false positive results for Norovirus.??A Norovirus positive result should correlate with the patient?s clinical history and presentation, along with travel history and disease severity. Performed By: #### S TGIPCR ####[place] [address] Plesiomonas shigelloides Not detected Normal Not Detected [facility] ([place]) Comment on above: Performed By: #### S TGIPCR ####[place] [address] Rotavirus A Not detected Normal Not Detected [facility] ([place]) Comment on above: Performed By: #### S TGIPCR ####[place] [address] Salmonella species, stool Not detected Normal Not Detected [facility] ([place]) Comment on above: Performed By: #### S TGIPCR ####[place] [address] Sapovirus I,II,IV,V Not detected Normal Not Detected [facility] ([place]) Comment on above: Performed By: #### S TGIPCR ####[place] [address] Shig Tox E. coli (STEC) Not detected Normal Not Detected [facility] ([place]) Comment on above: Performed By: #### S TGIPCR ####[place] [address] Shigella/Enteroinvasive E. coli (EIEC) Not detected Normal Not Detected [facility] ([place]) Comment on above: Performed By: #### S TGIPCR ####[place] [address] Stool GI Comment See Comment Normal [facility] ([place]) Comment on above: Result Comment: Viru s, bacteria, and parasite nucleic acid may persist in vivo independently of organism viability. Negative Film Array GI panel results in the setting of clinical illness compatible with gastroenteritis may be due to infection by pathogens that are not detected by this test. False negatives may occur due to genetic variability in the region targeted by the primers. Performed By: #### S TGIPCR ####[place] [address] Vibrio cholerae Not detected Normal Not Detected [facility] ([place]) Comment on above: Performed By: #### S TGIPCR ####[place] [address] Vibrio par/vul/chol Not detected Normal Not Detected [facility] ([place] Comment on above: Performed By: #### S TGIPCR ####[place] [address] Yersinia enterocolitica Not detected Normal Not Detected [facility] ([place]) Comment on above: Performed By: #### S TGIPCR ####[place] [address] .GFRon 11-20-2023 GFR Non- >60 Normal [facility] ([place]) Comment on above: Result Comment: GFR Population mean for , Non- Americans Ages 20-29 = 116 mL/min/1.73 sq.m. Ages 30-39 = 107 mL/min/1.73 sq.m. Ages 40-49 = 99 mL/min/1.73 sq.m. Ages 50-59 = 93 mL/min/1.73 sq.m. Ages 60-69 = 85 mL/min/1.73 sq.m. Ages 70+ = 75 mL/min/1.73 sq.m.Chronic Kidney Disease: Less than 60 mL/min/1.73 square metersEnd Stage Renal Disease: Less than 15 mL/min/1.73 square meters Performed By: #### M ORPH, CBC, BMP, GFR, DIFF ####[place] [address] GFR >60 Normal [facility] ([place]) Comment on above: Result Comment: GFR Population mean for , Non- Americans Ages 20-29 = 116 mL/min/1.73 sq.m. Ages 30-39 = 107 mL/min/1.73 sq.m. Ages 40-49 = 99 mL/min/1.73 sq.m. Ages 50-59 = 93 mL/min/1.73 sq.m. Ages 60-69 = 85 mL/min/1.73 sq.m. Ages 70+ = 75 mL/min/1.73 sq.m.Chronic Kidney Disease: Less than 60 mL/min/1.73 square metersEnd Stage Renal Disease: Less than 15 mL/min/1.73 square meters Performed By: #### M ORPH, CBC, BMP, GFR, DIFF ####[place] [address] .Manual Diffon 11-20-2023 Basophil %, Manual 0.0 % Normal 0.0-2.5 [facility] ([place]) Comment on above: Performed By: #### M ORPH, CBC, BMP, GFR, DIFF ####[place] [address] Basophil, Abs Manual 0.0 10 3/mcL Normal 0.0-0.3 [facility] ([place]) Comment on above: Performed By: #### M ORPH, CBC, BMP, GFR, DIFF ####[place] [address] Eosinophil %, Manual 0.0 % Normal 0.0-6.0 [facility] ([place]) Comment on above: Performed By: #### M ORPH, CBC, BMP, GFR, DIFF ####[place] [address] Eosinophil, Abs Manual 0.0 10 3/mcL Normal 0.0-0.7 [facility] ([place]) Comment on above: Performed By: #### M ORPH, CBC, BMP, GFR, DIFF ####[address] [address] Lymphocyte %, Manual 65.0 % High 20.0-40.0 [facility] ([place]) Comment on above: Performed By: #### M ORPH, CBC, BMP, GFR, DIFF ####[address] [address] Lymphocyte, Abs Manual 6.6 10 3/mcL High 0.9-4.3 [facility] ([place]) Comment on above: Performed By: #### M ORPH, CBC, BMP, GFR, DIFF ####[address] [address] Monocyte %, Manual 1.0 % Low 2.0-13.0 [facility] ([place]) Comment on above: Performed By: #### M ORPH, CBC, BMP, GFR, DIFF ####[address] [address] Monocyte, Abs Manual 0.1 10 3/mcL Normal 0.1-1.4 [facility] ([place]) Comment on above: Performed By: #### M ORPH, CBC, BMP, GFR, DIFF ####[address] [address] Myelocyte 1.0 % Normal [facility] ([place]) Comment on above: Performed By: #### M ORPH, CBC, BMP, GFR, DIFF ####[address] [address] Neutrophil %, Manual 33.0 % Low 50.0-75.0 [facility] ([place] Comment on above: Performed By: #### M ORPH, CBC, BMP, GFR, DIFF ####[address] [address] Neutrophil, Abs Manual 3.3 10 3/mcL Normal 2.3-8.1 [facility] ([place]) Comment on above: Performed By: #### M ORPH, CBC, BMP, GFR, DIFF ####[address] [address] Nucleated RBC 1.0 /100 WBC Normal [facility] ([place]) Comment on above: Performed By: #### M ORPH, CBC, BMP, GFR, DIFF ####[address] [address] .Morphon 11-20-2023 Platelet Estimate Normal Normal [facility] ([place]) Comment on above: Performed By: #### M ORPH, CBC, BMP, GFR, DIFF ####[address] [address] RBC morphology finding Nom (Bld) Normal Normal [facility] ([place]) Comment on above: Performed By: #### M ORPH, CBC, BMP, GFR, DIFF ####[place] [address] APTTon 11-20-2023 aPTT Coag (Bld) [Time] 33.7 s Normal 25.0-35.0 [facility] ([place]) Comment on above: Result Comment: For Heparin anticoagulation therapy, the recommendedtherapeutic range is: 54-77 seconds (APTT Correlationwith Anti-Xa therapeutic range of 0.3-0.7 units/ml).PLEASE REFERENCE THE PHARMACY PROTOCOL FOR DOSING. Performed By: #### M ORPH, CBC, BMP, GFR, DIFF ####[address] [address] Heparin dose (APTT) Heparin IV Normal [facility] ([place]) Comment on above: Performed By: #### M ORPH, CBC, BMP, GFR, DIFF ####[place] [address] BMPon 11-20-2023 BUN/Creatinine Ratio 7.9 ratio Low 10.0-22.0 [facility] ([place] Comment on above: Performed By: #### M ORPH, CBC, BMP, GFR, DIFF ####[address] [address] Calcium [Mass/Vol] 7.8 mg/dL Low 8.7-10.4 [facility] ([place]) Comment on above: Performed By: #### M ORPH, CBC, BMP, GFR, DIFF ####[place] [id number] Chloride [Moles/Vol] 108 mmol/L Normal 98-110 [facility] ([place] Comment on above: Performed By: #### M ORPH, CBC, BMP, GFR, DIFF ####[address] [address] CO2 [Moles/Vol] 25 mmol/L Normal 22-32 [facility] ([place] Comment on above: Performed By: #### M ORPH, CBC, BMP, GFR, DIFF ####[address] [address] Creatinine [Mass/Vol] 0.76 mg/dL Normal 0.50-1.20 [facility] ([place]) Comment on above: Performed By: #### M ORPH, CBC, BMP, GFR, DIFF ####[address] [address] Electrolyte Balance 5.0 mEq/L Normal 4.0-15.0 [facility] ([place] Comment on above: Performed By: #### M ORPH, CBC, BMP, GFR, DIFF ####[address] [address] Glucose [Mass/Vol] 133 mg/dL High 70-110 [facility] ([place] Comment on above: Performed By: #### M ORPH, CBC, BMP, GFR, DIFF ####[address] [address] Potassium [Moles/Vol] 3.9 mmol/L Normal 3.5-5.0 [facility] ([place] Comment on above: Performed By: #### M ORPH, CBC, BMP, GFR, DIFF ####[address] [address] Sodium [Moles/Vol] 138 mmol/L Normal 136-145 [facility] ([place] Comment on above: Performed By: #### M ORPH, CBC, BMP, GFR, DIFF ####[address] [address] Urea nitrogen [Mass/Vol] 6.0 mg/dL Low 8.0-22.0 [facility] ([place]) Comment on above: Performed By: #### M ORPH, CBC, BMP, GFR, DIFF ####[place] [address] CBCon 11-20-2023 Erythrocyte distribution width (RBC) [Ratio] 16.1 % High 11.5-15.5 [facility] ([place]) Comment on above: Performed By: #### M ORPH, CBC, BMP, GFR, DIFF ####[place] [address] Hematocrit (Bld) [Volume fraction] 35.9 % Normal 34.0-46.0 [facility] ([place] Comment on above: Performed By: #### M ORPH, CBC, BMP, GFR, DIFF ####[place] [address] Hgb 12.0 G/dL Normal 12.0-16.0 [facility] ([place] Comment on above: Performed By: #### M ORPH, CBC, BMP, GFR, DIFF ####[place] [address] MCH (RBC) [Entitic mass] 30.5 pg Normal 27.0-33.0 [facility] ([place]) Comment on above: Performed By: #### M ORPH, CBC, BMP, GFR, DIFF ####[place] [address] MCHC 33.3 G/dL Normal 32.0-36.0 [facility] ([place] Comment on above: Performed By: #### M ORPH, CBC, BMP, GFR, DIFF ####[place] [address] MCV (RBC) [Entitic vol] 91.4 fL Normal 80.0-99.0 [facility] ([place]) Comment on above: Performed By: #### M ORPH, CBC, BMP, GFR, DIFF ####[place] [address] Platelet 160 10 3/mcL Normal 150-450 [facility] ([place]) Comment on above: Performed By: #### M ORPH, CBC, BMP, GFR, DIFF ####[id number] [place] [address] Platelet mean volume (Bld) [Entitic vol] 7.9 fL Normal 6.6-10.5 [facility] ([place]) Comment on above: Performed By: #### M ORPH, CBC, BMP, GFR, DIFF ####[address] [address] RBC 3.93 10 6/mcL Low 4.10-5.30 [facility] ([place]) Comment on above: Performed By: #### M ORPH, CBC, BMP, GFR, DIFF ####[address] [address] WBC 10.1 10 3/mcL Normal 4.5-10.8 [facility] ([place]) Comment on above: Performed By: #### M ORPH, CBC, BMP, GFR, DIFF ####[address] [address] LABORATORYOrdered By: Amalia Yu on 11-20-2023 aPTT Coag (Bld) [Time] 33.7 s Normal 25.0 - 35.0 seconds [facility] SS Comment on above: Interpretive Data: F or Heparin anticoagulation therapy, the recommended therapeutic range is: 54-77 seconds (APTT Correlation with Anti-Xa therapeutic range of 0.3-0.7 units/ml). PLEASE REFERENCE THE PHARMACY PROTOCOL FOR DOSING. Heparin dose (APTT) Heparin IV (11/20/23 4:45 AM) Normal AH Coagulation S LABORATORYOrdered By: SYSTEM SYSTEM on 11-20-2023 Basophils (Bld) [#/Vol] 0.0 103/mcL Normal 0.0 - 0.3 10^3/mcL Workflow SS Basophils/100 WBC (Bld) 0.0 % Normal 0.0 - 2.5 % Workflow SS Calcium [Mass/Vol] 7.8 mg/dL Low 8.7 - 10. 4 mg/dL AH ADM SS Chloride [Moles/Vol] 108 mmol/L Normal 98 - 11 0 mEq/L AH ADM SS CO2 [Moles/Vol] 25 mmol/L Normal 22 - 32 mEq/L ADM SS Creatinine [Mass/Vol] 0.76 mg/dL Normal 0.50 - 1.20 mg/dL ADM SS Electrolyte Balance 5.0 mEq/L Normal 4.0 - 15 .0 mEq/L ADM SS Eosinophils (Bld) [#/Vol] 0.0 103/mcL Normal 0.0 - 0.7 10^3/mcL Workflow SS Eosinophils/100 WBC (Bld) 0.0 % Normal 0.0 - 6.0 % Workflow SS Erythrocyte distribution width (RBC) [Ratio] 16.1 % High 11.5 - 15.5 % Workflow SS GFR/1.73 sq M.predicted among blacks MDRD (S/P/Bld) [Vol rate/Area] ml/min/1.73sqm Invalid Interpretation Code Neo[employer]el Chemistry S Comment on above: Interpretive Data: GFR Population mean for , Non- Americans Ages 20-29 = 116 mL/min/1.73 sq.m. Ages 30-39 = 107 mL/min/1.73 sq.m. Ages 40-49 = 99 mL/min/1.73 sq.m. Ages 50-59 = 93 mL/min/1.73 sq.m. Ages 60-69 = 85 mL/min/1.73 sq.m. Ages 70+ = 75 mL/min/1.73 sq.m. Chronic Kidney Disease: Less than 60 mL/min/1.73 square meters End Stage Renal Disease: Less than 15 mL/min/1.73 square meters GFR/1.73 sq M.predicted among non-blacks MDRD (S/P/Bld) [Vol rate/Area] ml/min/1.73sqm Invalid Interpretation Code Neo[employer]el Chemistry S Comment on above: Interpretive Data: GFR Population mean for , Non- Americans Ages 20-29 = 116 mL/min/1.73 sq.m. Ages 30-39 = 107 mL/min/1.73 sq.m. Ages 40-49 = 99 mL/min/1.73 sq.m. Ages 50-59 = 93 mL/min/1.73 sq.m. Ages 60-69 = 85 mL/min/1.73 sq.m. Ages 70+ = 75 mL/min/1.73 sq.m. Chronic Kidney Disease: Less than 60 mL/min/1.73 square meters End Stage Renal Disease: Less than 15 mL/min/1.73 square meters Glucose [Mass/Vol] 133 mg/dL High 70 - 110 mg/dL AH ADM SS Hematocrit (Bld) [Volume fraction] 35.9 % Normal 34.0 - 46.0 % AH Workflow SS Hemoglobin (Bld) [Mass/Vol] 12.0 G/dL Normal 12.0 - 16.0 G/dL AH Workflow SS Lymphocytes (Bld) [#/Vol] 6.6 103/mcL High 0.9 - 4.3 10^3/mcL AH Workflow SS Lymphocytes/100 WBC (Bld) 65.0 % High 20.0 - 40.0 % AH Workflow SS MCH (RBC) [Entitic mass] 30.5 pg Normal 27.0 - 33.0 pg AH Workflow SS MCHC 33.3 G/dL Normal 32.0 - 36.0 G/dL AH Workflow SS MCV (RBC) [Entitic vol] 91.4 fL Normal 80.0 - 99.0 fL AH Workflow SS Monocytes (Bld) [#/Vol] 0.1 103/mcL Normal 0.1 - 1.4 10^3/mcL AH Workflow SS Monocytes/100 WBC (Bld) 1.0 % Low 2.0 - 13.0 % AH Workflow SS Myelocytes/100 WBC (Bld) 1.0 % Invalid Interpretation Code AH Workflow SS Neutrophils (Bld) [#/Vol] 3.3 103/mcL Normal 2.3 - 8.1 10^3/mcL AH Workflow SS Neutrophils/100 WBC (Bld) 33.0 % Low 50.0 - 75.0 % AH Workflow SS Nucleated RBC 1.0 /100 WBC Invalid Interpretation Code AH Workflow SS Platelet mean volume (Bld) [Entitic vol] 7.9 fL Normal 6.6 - 10.5 fL AH Workflow SS Platelets (Bld) [#/Vol] 160 103/mcL Normal 150 - 450 10^3/mcL AH Workflow SS Platelets LM Ql (Bld) Normal *NA* (11/20/23 4:45 AM) Invalid Interpretation Code AH Workflow SS Potassium [Moles/Vol] 3.9 mmol/L Normal 3.5 - 5.0 mEq/L AH ADM SS RBC (Bld) [#/Vol] 3.93 106/mcL Low 4.10 - 5.30 10^6/mcL AH Workflow SS RBC morphology finding Nom (Bld) Normal *NA* (11/20/23 4:45 AM) Invalid Interpretation Code AH Workflow SS Sodium [Moles/Vol] 138 mmol/L Normal 136 - 145 mEq/L AH ADM SS Urea nitrogen [Mass/Vol] 6.0 mg/dL Low 8.0 - 22.0 mg/dL AH ADM SS Urea nitrogen/Creatinine [Mass ratio] 7.9 ratio Low 10.0 - 22.0 ratio AH ADM SS WBC (Bld) [#/Vol] 10.1 103/mcL Normal 4.5 - 10.8 10^3/mcL Workflow SS .GFRon 11-19-2023 GFR Non- >60 Normal [facility] ([place]) Comment on above: Result Comment: GFR Population mean for , Non- Americans Ages 20-29 = 116 mL/min/1.73 sq.m. Ages 30-39 = 107 mL/min/1.73 sq.m. Ages 40-49 = 99 mL/min/1.73 sq.m. Ages 50-59 = 93 mL/min/1.73 sq.m. Ages 60-69 = 85 mL/min/1.73 sq.m. Ages 70+ = 75 mL/min/1.73 sq.m.Chronic Kidney Disease: Less than 60 mL/min/1.73 square metersEnd Stage Renal Disease: Less than 15 mL/min/1.73 square meters Performed By: #### G FR, MORPH, CMP, PNHPNL, DIFF, A1C, CBC ####[place] [address] GFR >60 Normal [facility] ([place]) Comment on above: Result Comment: GFR Population mean for , Non- Americans Ages 20-29 = 116 mL/min/1.73 sq.m. Ages 30-39 = 107 mL/min/1.73 sq.m. Ages 40-49 = 99 mL/min/1.73 sq.m. Ages 50-59 = 93 mL/min/1.73 sq.m. Ages 60-69 = 85 mL/min/1.73 sq.m. Ages 70+ = 75 mL/min/1.73 sq.m.Chronic Kidney Disease: Less than 60 mL/min/1.73 square metersEnd Stage Renal Disease: Less than 15 mL/min/1.73 square meters Performed By: #### G FR, MORPH, CMP, PNHPNL, DIFF, A1C, CBC ####[place] [address] .Manual Diffon 11-19-2023 Atypical Lymphs 7.0 % High 0.0-5.0 [facility] ([place]) Comment on above: Performed By: #### G FR, MORPH, CMP, PNHPNL, DIFF, A1C, CBC ####[place] [address] Bands 1.0 % Normal 0.0-5.0 [facility] ([place]) Comment on above: Performed By: #### G FR, MORPH, CMP, PNHPNL, DIFF, A1C, CBC ####[place] [address] Basophil %, Manual 0.0 % Normal 0.0-2.5 [facility] ([place]) Comment on above: Performed By: #### G FR, MORPH, CMP, PNHPNL, DIFF, A1C, CBC ####[place] [address] Basophil, Abs Manual 0.0 10 3/mcL Normal 0.0-0.3 [facility] ([place]) Comment on above: Performed By: #### G FR, MORPH, CMP, PNHPNL, DIFF, A1C, CBC ####[place] [address] Eosinophil %, Manual 0.0 % Normal 0.0-6.0 [facility] ([place]) Comment on above: Performed By: #### G FR, MORPH, CMP, PNHPNL, DIFF, A1C, CBC ####[place] [id number] Eosinophil, Abs Manual 0.0 10 3/mcL Normal 0.0-0.7 [facility] ([place]) Comment on above: Performed By: #### G FR, MORPH, CMP, PNHPNL, DIFF, A1C, CBC ####[place] [address] Lymphocyte %, Manual 62.0 % High 20.0-40.0 [facility] ([place]) Comment on above: Performed By: #### G FR, MORPH, CMP, PNHPNL, DIFF, A1C, CBC ####[address] [address] Lymphocyte, Abs Manual 5.9 10 3/mcL High 0.9-4.3 [facility] ([place]) Comment on above: Performed By: #### G FR, MORPH, CMP, PNHPNL, DIFF, A1C, CBC ####[place] [address] Metamyelocyte 2.0 % Normal [facility] ([place]) Comment on above: Performed By: #### G FR, MORPH, CMP, PNHPNL, DIFF, A1C, CBC ####[place] [address] Monocyte %, Manual 9.0 % Normal 2.0-13.0 [facility] ([place]) Comment on above: Performed By: #### G FR, MORPH, CMP, PNHPNL, DIFF, A1C, CBC ####[place] [address] Monocyte, Abs Manual 0.9 10 3/mcL Normal 0.1-1.4 [facility] ([place]) Comment on above: Performed By: #### G FR, MORPH, CMP, PNHPNL, DIFF, A1C, CBC ####[place] [address] Myelocyte 2.0 % Normal [facility] ([place]) Comment on above: Performed By: #### G FR, MORPH, CMP, PNHPNL, DIFF, A1C, CBC ####[place] [address] Neutrophil %, Manual 17.0 % Low 50.0-75.0 [facility] ([place]) Comment on above: Performed By: #### G FR, MORPH, CMP, PNHPNL, DIFF, A1C, CBC ####[place] [address] Neutrophil, Abs Manual 1.7 10 3/mcL Low 2.3-8.1 [facility] ([place]) Comment on above: Performed By: #### G FR, MORPH, CMP, PNHPNL, DIFF, A1C, CBC ####[place] [address] Nucleated RBC 0.0 /100 WBC Normal [facility] ([place]) Comment on above: Performed By: #### G FR, MORPH, CMP, PNHPNL, DIFF, A1C, CBC ####[place] [address] .Morphon 11-19-2023 Anisocytosis Ql (Bld) 1+ Normal [facility] ([place]) Comment on above: Performed By: #### G FR, MORPH, CMP, PNHPNL, DIFF, A1C, CBC ####[place] [address] Hypochrom 1+ Normal [facility] ([place]) Comment on above: Performed By: #### G FR, MORPH, CMP, PNHPNL, DIFF, A1C, CBC ####[place] [address] Ovalocytes 1+ Normal [facility] ([place]) Comment on above: Performed By: #### G FR, MORPH, CMP, PNHPNL, DIFF, A1C, CBC ####[place] [address] Platelet Estimate Slt Decreased Normal [facility] ([place]) Comment on above: Performed By: #### G FR, MORPH, CMP, PNHPNL, DIFF, A1C, CBC ####[place] [address] Polychrom 1+ Normal [facility] ([place]) Comment on above: Performed By: #### G FR, MORPH, CMP, PNHPNL, DIFF, A1C, CBC ####[place] [address] A1Con 11-19-2023 HbA1c (Bld) [Mass fraction] 10.5 % High 4.0-6.0 [facility] ([place]) Comment on above: Performed By: #### G FR, MORPH, CMP, PNHPNL, DIFF, A1C, CBC ####[place] [address] APTTon 11-19-2023 aPTT Coag (Bld) [Time] 65.7 s High 25.0-35.0 [facility] ([place]) Comment on above: Result Comment: Spec imen hemolyzed. Results may be affected.For Heparin anticoagulation therapy, the recommendedtherapeutic range is: 54-77 seconds (APTT Correlationwith Anti-Xa therapeutic range of 0.3-0.7 units/ml).PLEASE REFERENCE THE PHARMACY PROTOCOL FOR DOSING. Heparin dose (APTT) Heparin IV Normal [facility]) aPTT Coag (Bld) [Time] 51.4 s High 25.0-35.0 [facility] ([place]) Comment on above: Result Comment: For Heparin anticoagulation therapy, the recommendedtherapeutic range is: 54-77 seconds (APTT Correlationwith Anti-Xa therapeutic range of 0.3-0.7 units/ml).PLEASE REFERENCE THE PHARMACY PROTOCOL FOR DOSING. Heparin dose (APTT) Heparin IV Normal [facility]) aPTT Coag (Bld) [Time] 46.2 s High 25.0-35.0 [facility] ([place] Comment on above: Result Comment: For Heparin anticoagulation therapy, the recommendedtherapeutic range is: 54-77 seconds (APTT Correlationwith Anti-Xa therapeutic range of 0.3-0.7 units/ml).PLEASE REFERENCE THE PHARMACY PROTOCOL FOR DOSING. Heparin dose (APTT) Heparin IV Normal [facility]) CBCon 11-19-2023 Erythrocyte distribution width (RBC) [Ratio] 15.9 % High 11.5-15.5 [facility] ([place]) Comment on above: Performed By: #### G FR, MORPH, CMP, PNHPNL, DIFF, A1C, CBC ####[address] [address] Hematocrit (Bld) [Volume fraction] 32.4 % Low 34.0-46.0 [facility] ([place]) Comment on above: Performed By: #### G FR, MORPH, CMP, PNHPNL, DIFF, A1C, CBC ####[address] [address] Hgb 11.0 G/dL Low 12.0-16.0 [facility] ([place]) Comment on above: Performed By: #### G FR, MORPH, CMP, PNHPNL, DIFF, A1C, CBC ####[place] [address] MCH (RBC) [Entitic mass] 30.8 pg Normal 27.0-33.0 [facility] ([place]) Comment on above: Performed By: #### G FR, MORPH, CMP, PNHPNL, DIFF, A1C, CBC ####[place] [address] MCHC 33.9 G/dL Normal 32.0-36.0 [facility] ([place]) Comment on above: Performed By: #### G FR, MORPH, CMP, PNHPNL, DIFF, A1C, CBC ####[place] [address] MCV (RBC) [Entitic vol] 90.8 fL Normal 80.0-99.0 [facility] ([place]) Comment on above: Performed By: #### G FR, MORPH, CMP, PNHPNL, DIFF, A1C, CBC ####[place] [address] Platelet 147 10 3/mcL Low 150-450 [facility] ([place]) Comment on above: Performed By: #### G FR, MORPH, CMP, PNHPNL, DIFF, A1C, CBC ####[place] [address] Platelet mean volume (Bld) [Entitic vol] 8.5 fL Normal 6.6-10.5 [facility] ([place]) Comment on above: Performed By: #### G FR, MORPH, CMP, PNHPNL, DIFF, A1C, CBC ####[place] [address] RBC 3.56 10 6/mcL Low 4.10-5.30 [facility] ([place]) Comment on above: Performed By: #### G FR, MORPH, CMP, PNHPNL, DIFF, A1C, CBC ####[place] [address] WBC 9.6 10 3/mcL Normal 4.5-10.8 [facility] ([place]) Comment on above: Performed By: #### G FR, MORPH, CMP, PNHPNL, DIFF, A1C, CBC ####[place] [address] CMPon 11-19-2023 Albumin Level 2.2 G/dL Low 3.2-4.8 [facility] ([place]) Comment on above: Performed By: #### G FR, MORPH, CMP, PNHPNL, DIFF, A1C, CBC ####[place] [address] Albumin/Globulin [Mass ratio] 0.7 {ratio} Low 0.9-1.6 [facility] ([place]) Comment on above: Performed By: #### G FR, MORPH, CMP, PNHPNL, DIFF, A1C, CBC ####[place] [address] ALP [Catalytic activity/Vol] 78 U/L Normal 38-126 [facility] ([place]) Comment on above: Performed By: #### G FR, MORPH, CMP, PNHPNL, DIFF, A1C, CBC ####[place] [address] ALT [Catalytic activity/Vol] 38 U/L Normal 10-49 [facility] ([place]) Comment on above: Performed By: #### G FR, MORPH, CMP, PNHPNL, DIFF, A1C, CBC ####[place] [address] AST [Catalytic activity/Vol] 45 U/L High 8-34 [facility] ([place]) Comment on above: Performed By: #### G FR, MORPH, CMP, PNHPNL, DIFF, A1C, CBC ####[place] [address] Bili Total 0.20 mg/dL Normal 0.20-1.20 [facility] ([place]) Comment on above: Result Comment: Use of this assay is not recommended for patients undergoing treatment with eltrombopag due to the potential for falsely elevated results. Performed By: #### G FR, MORPH, CMP, PNHPNL, DIFF, A1C, CBC ####[place] [id number] BUN/Creatinine Ratio 8.3 ratio Low 10.0-22.0 [facility] ([place]) Comment on above: Performed By: #### G FR, MORPH, CMP, PNHPNL, DIFF, A1C, CBC ####[address] [address] Calcium [Mass/Vol] 7.4 mg/dL Low 8.7-10.4 [facility] ([place]) Comment on above: Performed By: #### G FR, MORPH, CMP, PNHPNL, DIFF, A1C, CBC ####[address] [address] Chloride [Moles/Vol] 109 mmol/L Normal 98-110 [facility] ([place]) Comment on above: Performed By: #### G FR, MORPH, CMP, PNHPNL, DIFF, A1C, CBC ####[address] [address] CO2 [Moles/Vol] 18 mmol/L Low 22-32 [facility] ([place]) Comment on above: Performed By: #### G FR, MORPH, CMP, PNHPNL, DIFF, A1C, CBC ####[place] [address] Creatinine [Mass/Vol] 0.72 mg/dL Normal 0.50-1.20 [facility] ([place]) Comment on above: Performed By: #### G FR, MORPH, CMP, PNHPNL, DIFF, A1C, CBC ####[address] [address] Electrolyte Balance 10.0 mEq/L Normal 4.0-15.0 [facility] ([place]) Comment on above: Performed By: #### G FR, MORPH, CMP, PNHPNL, DIFF, A1C, CBC ####[address] [address] Globulin 3.3 G/dL Normal 1.5-3.8 [facility] ([place]) Comment on above: Performed By: #### G FR, MORPH, CMP, PNHPNL, DIFF, A1C, CBC ####[address] [address] Glucose [Mass/Vol] 123 mg/dL High 70-110 [facility] ([place]) Comment on above: Performed By: #### G FR, MORPH, CMP, PNHPNL, DIFF, A1C, CBC ####[place] [id number] [address] [place] [address] Potassium [Moles/Vol] 4.1 mmol/L Normal 3.5-5.0 [facility] ([place]) Comment on above: Result Comment: Spec imen slightly hemolyzed. Performed By: #### G FR, MORPH, CMP, PNHPNL, DIFF, A1C, CBC ####[place] [address] [address] [place] [address] Sodium [Moles/Vol] 137 mmol/L Normal 136-145 [facility] ([place]) Comment on above: Performed By: #### G FR, MORPH, CMP, PNHPNL, DIFF, A1C, CBC ####[address] [address] Total Protein 5.5 G/dL Low 5.7-8.2 [facility] ([place]) Comment on above: Result Comment: No te - New Reference Range in effect 19 Performed By: #### G FR, MORPH, CMP, PNHPNL, DIFF, A1C, CBC ####[address] [address] Urea nitrogen [Mass/Vol] 6.0 mg/dL Low 8.0-22.0 [facility] ([place]) Comment on above: Performed By: #### G FR, MORPH, CMP, PNHPNL, DIFF, A1C, CBC ####[place] [id number] [address] [place] [address] CURon 11-19-2023 CUR Normal [facility] ([place]) LABORATORYOrdered By: Loraine Reddy on 11-19-2023 aPTT Coag (Bld) [Time] 65.7 s High 25.0 - 35.0 seconds AH [facility] SS Comment on above: Result Comment: Spec imen hemolyzed. Results may be affected. Interpretive Data: F or Heparin anticoagulation therapy, the recommended therapeutic range is: 54-77 seconds (APTT Correlation with Anti-Xa therapeutic range of 0.3-0.7 units/ml). PLEASE REFERENCE THE PHARMACY PROTOCOL FOR DOSING. Heparin dose (APTT) Heparin IV (11/19/23 6:49 PM) Normal AH Co[facility] S LABORATORYOrdered By: Gustabo on 11-19-2023 aPTT Coag (Bld) [Time] 51.4 s High 25.0 - 35.0 seconds [facility] SS Comment on above: Interpretive Data: F or Heparin anticoagulation therapy, the recommended therapeutic range is: 54-77 seconds (APTT Correlation with Anti-Xa therapeutic range of 0.3-0.7 units/ml). PLEASE REFERENCE THE PHARMACY PROTOCOL FOR DOSING. Heparin dose (APTT) Heparin IV (11/19/23 10:06 AM) Normal [facility] S LABORATORYOrdered By: [employer] SYSTEM on 11-19-2023 Albumin BCP dye [Mass/Vol] 2.2 G/dL Low 3.2 - 4.8 G/dL ADM SS Albumin/Globulin [Mass ratio] 0.7 {ratio} Low 0.9 - 1.6 ratio AH ADM SS ALP [Catalytic activity/Vol] 78 U/L Normal 38 - 126 U/L ADM SS ALT No additional P-5'-P [Catalytic activity/Vol] 38 U/L Normal 10 - 49 U/L AH ADM SS Anisocytosis Ql (Bld) 1+ *NA* (11/19/23 2:55 AM) Invalid Interpretation Code Workflow SS AST [Catalytic activity/Vol] 45 U/L High 8 - 34 U/L ADM SS Band form neutrophils/100 WBC (Bld) 1.0 % Normal 0.0 - 5.0 % Workflow SS Bilirubin [Mass/Vol] 0.20 mg/dL Normal 0.20 - 1.20 mg/dL ADM SS Comment on above: Interpretive Data: U se of this assay is not recommended for patients undergoing treatment with eltrombopag due to the potential for falsely elevated results. Globulin 3.3 G/dL Normal 1.5 - 3.8 G/dL ADM SS HbA1c (Bld) [Mass fraction] 10.5 % High 4.0 - 6.0 % Auto Chem SS Hypochromia Ql (Bld) 1+ *NA* (6/23/24 2:55 AM) Invalid Interpretation Code AH Workflow SS Metamyelocytes/100 WBC (Bld) 2.0 % Invalid Interpretation Code AH Workflow SS Myelocytes/100 WBC (Bld) 2.0 % Invalid Interpretation Code AH Workflow SS Ovalocytes LM Ql (Bld) 1+ *NA* (11/19/23 2:55 AM) Invalid Interpretation Code AH Workflow SS Polychromasia LM Ql (Bld) 1+ *NA* (11/19/23 2:55 AM) Invalid Interpretation Code AH Workflow SS Protein [Mass/Vol] 5.5 G/dL Low 5.7 - 8.2 G/dL AH ADM SS Comment on above: Interpretive Data: * *Note - New Reference Range in effect 19 Variant lymphocytes/100 WBC (Bld) 7.0 % High 0.0 - 5.0 % AH Workflow SS LABORATORYOrdered By: LOR GORE CONTRIBUTOR_SYSTEM on 11-19-2023 Factor V Leiden Factor V Leiden PCR Invalid Interpretation Code Sendouts SS Comment on above: Result Comment: Violetta pathak Accession Number: [id number] Result: NEGATIVE Interpretation: The DNA sample is negative for the c.1601G>A variant (legacy name R506Q) in the Factor V (F5) gene. This variant is commonly known as Factor V Leiden. This result is not associated with an increased risk of thromboembolic disease. The Factor V Leiden assay will not detect individuals with activated protein C resistance who do not have the c.1601G>A variant (less than 5% of those with activated protein C resistance). These individuals may be identified by ordering the functional assay for Activated Protein C Resistance. Thromboembolic disease is a multifactorial disorder, and other causes are not excluded by this result. Methodology: Isolated genomic DNA from the patient's blood specimen is evaluated for the c.1601G>A (p.[id number];[id number]) variant of the F5 gene [RefSeq NM_[id number]; GRCh38/hg38] by multiplex polymerase chain reaction (PCR) followed by melting curve analysis. Limitations: This assay is designed to detect the c.1601G>A variant in the F5 gene. Uncommon variants or single nucleotide polymorphisms may affect binding of probes and may rarely result in false negative, false positive or indeterminate results. This assay does not detect other disease-associated rare variants on F5 or other causes of thromboembolic disease. Disclaimer: This test was developed and its performance characteristics determined by [facility] [place] ([facility] It has not been cleared or approved by the FDA. [facility] is regulated under CLIA as certified to perform high- complexity testing. This test is used for clinical purposes. It should not be regarded as investigational or for research. Testing and interpretation performed at [facility], [address] [place] [address]. CLIA Number: [id number] References: 1) Mary R, Jose G, Marcos P. The genetics of venous thromboembolism. A meta-analysis involving approximately 120,000 cases and 180,000 controls. Thromb Haemost 2009;102(2):360-70. 2) Inherited Thrombophilias in . ACOG Practice Bulletin.No.197.[place] [employer]. Obstet Gynecol 2018;132:e18-34. 3) [place] SILVEIRA. Factor V Leiden Thrombophilia. Echo Med.2011;13(1):1-16. 4) Pharmacogenomics summary [email or web address] As reviewed by Alexa Spear MD, PhD Performed By: [employer] [facility] [address] [place] [address]. [place] [address] Web Press Roll Tender: Seth Whalen III, M.D. CLIA#: [id number] PT Gene Mut Prothrombin Gene Mutation Invalid Interpretation Code Sendouts SS Comment on above: Result Comment: Violetta pathak Accession Number: [id number] Result: NORMAL Interpretation: The DNA sample is negative for the c.*97G>A variant (legacy name 87241U>A) in the 3' untranslated region of the Factor II (F2) gene. This result is not associated with an increased risk of thromboembolic disease. Thromboembolic disease is a multifactorial disorder and other causes are not excluded by this result. Methodology: Isolated Genomic DNA from the patient's blood specimen is evaluated for the c*97G>A ([id number]) variant of the F2 gene [RefSeq [id number];GRCh38/hg38] by multiplex polymerase chain reaction (PCR) followed by melting curve analysis. Limitations: This assay is designed to detect the c.*97G>A (05472E>A) variant in the F2 gene. Uncommon variants or single nucleotide polymorphisms may affect binding of probes and may rarely result in false negative, false positive or indeterminate results. This assay does not detect other disease-associated rare variants in F2 or other causes of thromboembolic disease. Disclaimer: This test was developed and its performance characteristics determined by [facility] [place] ([facility] It has not been cleared or approved by the FDA. [facility] is regulated under CLIA as certified to perform high- complexity testing. This test is used for clinical purposes. It should not be regarded as investigational or for research. Testing and interpretation performed at [facility], [address] [place], [place] [id number]. CLIA Number: [id number] References: 1) Inheritied Thrombophilias in . ACOG Practice Bulletin. No. 197. [place] [employer]. Obsete Gynecol 2018;132:e18-34. 2) Mjt SR, Yasmin FR, Edmund PH, and Yu MUHAMMAD. A common genetic variation in the 3'-untranslated region of the prothrombin gene is associated with elevated plasma prothrombin levels and an increase in venous thrombosis. Blood 88:3698-703, 1995. 3) Enrique I, Justin V, Fito C, Mian K. Prothrombin 32305R>T: 16 new cases, association with the 12161N>G polymorphism, and literature review. J Thromb Haemost. 2009;9:1585-7. As reviewed by Alexa Spear MD, PhD Performed By: [employer] [address] [place] [address]. [place] [address] Web Press Roll Tender: Seth Whalen III, M.D. CLIA#: [id number] No Panel Informationon 11-18 Culture Urine No growth at 48 hours. [facility] .GFRon 11-18-2023 GFR Non- >60 Normal [facility] ([place]) Comment on above: Result Comment: GFR Population mean for , Non- Americans Ages 20-29 = 116 mL/min/1.73 sq.m. Ages 30-39 = 107 mL/min/1.73 sq.m. Ages 40-49 = 99 mL/min/1.73 sq.m. Ages 50-59 = 93 mL/min/1.73 sq.m. Ages 60-69 = 85 mL/min/1.73 sq.m. Ages 70+ = 75 mL/min/1.73 sq.m.Chronic Kidney Disease: Less than 60 mL/min/1.73 square metersEnd Stage Renal Disease: Less than 15 mL/min/1.73 square meters Performed By: #### Mindy FR, CMP ####[address] [address] GFR >60 Normal [facility] ([place]) Comment on above: Result Comment: GFR Population mean for , Non- Americans Ages 20-29 = 116 mL/min/1.73 sq.m. Ages 30-39 = 107 mL/min/1.73 sq.m. Ages 40-49 = 99 mL/min/1.73 sq.m. Ages 50-59 = 93 mL/min/1.73 sq.m. Ages 60-69 = 85 mL/min/1.73 sq.m. Ages 70+ = 75 mL/min/1.73 sq.m.Chronic Kidney Disease: Less than 60 mL/min/1.73 square metersEnd Stage Renal Disease: Less than 15 mL/min/1.73 square meters Performed By: #### Mindy FR, CMP ####[place] [address] .Manual Diffon 11-18-2023 Bands 3.0 % Normal 0.0-5.0 [facility] ([place]) Comment on above: Performed By: #### C BC, DIFF, MORPH ####[place] [address] Basophil %, Manual 0.0 % Normal 0.0-2.5 [facility] ([place]) Comment on above: Performed By: #### C BC, DIFF, MORPH ####[place] [address] Basophil, Abs Manual 0.0 10 3/mcL Normal 0.0-0.3 [facility] ([place]) Comment on above: Performed By: #### C BC, DIFF, MORPH ####[address] [address] Eosinophil %, Manual 1.0 % Normal 0.0-6.0 [facility] ([place] Comment on above: Performed By: #### C BC, DIFF, MORPH ####[address] [address] Eosinophil, Abs Manual 0.1 10 3/mcL Normal 0.0-0.7 [facility] ([place]) Comment on above: Performed By: #### C BC, DIFF, MORPH ####[address] [address] Lymphocyte %, Manual 58.0 % High 20.0-40.0 [facility] ([place] Comment on above: Performed By: #### C BC, DIFF, MORPH ####[address] [address] Lymphocyte, Abs Manual 5.5 10 3/mcL High 0.9-4.3 [facility] ([place]) Comment on above: Performed By: #### C BC, DIFF, MORPH ####[address] [address] Monocyte %, Manual 9.0 % Normal 2.0-13.0 [facility] ([place]) Comment on above: Performed By: #### C BC, DIFF, MORPH ####[address] [address] Monocyte, Abs Manual 0.9 10 3/mcL Normal 0.1-1.4 [facility] ([place] Comment on above: Performed By: #### C BC, DIFF, MORPH ####[address] [address] Neutrophil %, Manual 29.0 % Low 50.0-75.0 [facility] ([place] Comment on above: Performed By: #### C BC, DIFF, MORPH ####[address] [address] Neutrophil, Abs Manual 3.0 10 3/mcL Normal 2.3-8.1 [facility] ([place]) Comment on above: Performed By: #### C BC, DIFF, MORPH ####[place] [address] Nucleated RBC 0.0 /100 WBC Normal [facility] ([place]) Comment on above: Performed By: #### C BC, DIFF, MORPH ####[address] [address] .Morphon 11-18-2023 Anisocytosis Ql (Bld) 1+ Normal [facility] ([place] Comment on above: Performed By: #### C BC, DIFF, MORPH ####[place] [address] Platelet Estimate Normal Normal [facility] ([place]) Comment on above: Performed By: #### C BC, DIFF, MORPH ####[place] [address] APTTon 11-18-2023 aPTT Coag (Bld) [Time] 51.7 s High 25.0-35.0 [facility] ([place] Comment on above: Result Comment: For Heparin anticoagulation therapy, the recommendedtherapeutic range is: 54-77 seconds (APTT Correlationwith Anti-Xa therapeutic range of 0.3-0.7 units/ml).PLEASE REFERENCE THE PHARMACY PROTOCOL FOR DOSING. Heparin dose (APTT) Heparin IV Normal [facility] ([place] aPTT Coag (Bld) [Time] 37.9 s High 25.0-35.0 [facility] ([place] Comment on above: Result Comment: For Heparin anticoagulation therapy, the recommendedtherapeutic range is: 54-77 seconds (APTT Correlationwith Anti-Xa therapeutic range of 0.3-0.7 units/ml).PLEASE REFERENCE THE PHARMACY PROTOCOL FOR DOSING. Performed By: #### P RO ####[place] [address] Heparin dose (APTT) Heparin IV Normal [facility] ([place] Comment on above: Performed By: #### P RO ####[place] [address] CBCon 11-18-2023 Erythrocyte distribution width (RBC) [Ratio] 15.5 % Normal 11.5-15.5 [facility] ([place]) Comment on above: Performed By: #### C BC, DIFF, MORPH ####[place] [address] Hematocrit (Bld) [Volume fraction] 32.7 % Low 34.0-46.0 [facility] ([place]) Comment on above: Performed By: #### C BC, DIFF, MORPH ####[place] [address] Hgb 11.3 G/dL Low 12.0-16.0 [facility] ([place]) Comment on above: Performed By: #### C BC, DIFF, MORPH ####[place] [address] MCH (RBC) [Entitic mass] 31.0 pg Normal 27.0-33.0 [facility] ([place]) Comment on above: Performed By: #### C BC, DIFF, MORPH ####[place] [address] MCHC 34.5 G/dL Normal 32.0-36.0 [facility] ([place]) Comment on above: Performed By: #### C BC, DIFF, MORPH ####[place] [address] MCV (RBC) [Entitic vol] 89.9 fL Normal 80.0-99.0 A [facility] ([place]) Comment on above: Performed By: #### C BC, DIFF, MORPH ####[place] [address] Platelet 155 10 3/mcL Normal 150-450 [facility] ([place]) Comment on above: Performed By: #### C BC, DIFF, MORPH ####[place] [address] Platelet mean volume (Bld) [Entitic vol] 8.4 fL Normal 6.6-10.5 [facility] ([place]) Comment on above: Performed By: #### C BC, DIFF, MORPH ####[place] [address] RBC 3.63 10 6/mcL Low 4.10-5.30 [facility] ([place]) Comment on above: Performed By: #### C BC, DIFF, MORPH ####[place] [address] WBC 9.5 10 3/mcL Normal 4.5-10.8 [facility] ([place]) Comment on above: Performed By: #### C BC, DIFF, MORPH ####[place] [address] CMPon 11-18-2023 Albumin Level 2.4 G/dL Low 3.2-4.8 [facility] ([place] Comment on above: Performed By: #### G FR, CMP ####[place] [address] Albumin/Globulin [Mass ratio] 0.7 {ratio} Low 0.9-1.6 [facility] ([place]) Comment on above: Performed By: #### G FR, CMP ####[place] [address] ALP [Catalytic activity/Vol] 86 U/L Normal 38-126 [facility] ([place]) Comment on above: Performed By: #### Mindy FR, CMP ####[place] [address] ALT [Catalytic activity/Vol] 45 U/L Normal 10-49 [facility] ([place] Comment on above: Performed By: #### G FR, CMP ####[place] [address] AST [Catalytic activity/Vol] 45 U/L High 8-34 [facility] ([place] Comment on above: Performed By: #### G FR, CMP ####[place] [address] Bili Total 0.30 mg/dL Normal 0.20-1.20 [facility] ([place]) Comment on above: Result Comment: Use of this assay is not recommended for patients undergoing treatment with eltrombopag due to the potential for falsely elevated results. Performed By: #### G FR, CMP ####[place] [address] BUN/Creatinine Ratio 9.7 ratio Low 10.0-22.0 [facility] ([place]) Comment on above: Performed By: #### Mindy BEARDEN, CMP ####[place] [address] Calcium [Mass/Vol] 7.6 mg/dL Low 8.7-10.4 [facility] ([place]) Comment on above: Performed By: #### Mindy BEARDEN, CMP ####[place] [address] Chloride [Moles/Vol] 109 mmol/L Normal 98-110 [facility] ([place]) Comment on above: Performed By: #### Mindy BEARDEN, CMP ####[place] [address] CO2 [Moles/Vol] 19 mmol/L Low 22-32 [facility] ([place]) Comment on above: Performed By: #### Mindy BEARDEN, CMP ####[place] [address] Creatinine [Mass/Vol] 0.72 mg/dL Normal 0.50-1.20 [facility] ([place]) Comment on above: Performed By: #### Mindy BEARDEN, CMP ####[place] [address] Electrolyte Balance 11.0 mEq/L Normal 4.0-15.0 [facility] ([place]) Comment on above: Performed By: #### Mindy BEARDEN, CMP ####[place] [address] Globulin 3.3 G/dL Normal 1.5-3.8 [facility] ([place]) Comment on above: Performed By: #### Mindy BEARDEN, CMP ####[place] [address] Glucose [Mass/Vol] 168 mg/dL High 70-110 [facility] ([place]) Comment on above: Performed By: #### Mindy BEARDEN, CMP ####[place] [address] Potassium [Moles/Vol] 3.8 mmol/L Normal 3.5-5.0 [facility] ([place]) Comment on above: Performed By: #### G , CMP ####[place] [id number] [place] [address] Sodium [Moles/Vol] 139 mmol/L Normal 136-145 [facility] ([place]) Comment on above: Performed By: #### Mindy BEARDEN, CMP ####[place] [id number] [place] [address] Total Protein 5.7 G/dL Normal 5.7-8.2 [facility] ([place]) Comment on above: Result Comment: No te - New Reference Range in effect 19 Performed By: #### Mindy BEARDEN, CMP ####[address] [address] Urea nitrogen [Mass/Vol] 7.0 mg/dL Low 8.0-22.0 [facility] ([place]) Comment on above: Performed By: #### Mindy BEARDEN, CMP ####[address] [address] [address] ABD/PELVIS W/ IV CONTRAST ONLYon 11-18-2023 CT ABD/PELVIS W/ IV CONTRAST ONLY Normal [facility] ([place]) LABORATORYOrdered By: SYSTEM SYSTEM on 11-18-2023 Albumin BCP dye [Mass/Vol] 2.4 G/dL Low 3.2 - 4.8 G/dL ADM SS Albumin/Globulin [Mass ratio] 0.7 {ratio} Low 0.9 - 1.6 ratio AH ADM SS ALP [Catalytic activity/Vol] 86 U/L Normal 38 - 126 U/L ADM SS ALT No additional P-5'-P [Catalytic activity/Vol] 45 U/L Normal 10 - 49 U/L AH ADM SS AST [Catalytic activity/Vol] 45 U/L High 8 - 34 U/L ADM SS Bilirubin [Mass/Vol] 0.30 mg/dL Normal 0.20 - 1.20 mg/dL ADM SS Comment on above: Interpretive Data: U se of this assay is not recommended for patients undergoing treatment with eltrombopag due to the potential for falsely elevated results. Globulin 3.3 G/dL Normal 1.5 - 3.8 G/dL ADM SS Protein [Mass/Vol] 5.7 G/dL Normal 5.7 - 8.2 G/dL ADM Comment on above: Interpretive Data: * *Note - New Reference Range in effect 19 LABORATORYOrdered By: Denise Robb on 11-18-2023 PT Coag (PPP) [Time] 11.0 s Normal 9.0 - 1 4.4 seconds [facility] Comment on above: Interpretive Data: E ffective 12/11/07, Protime results may be affected by some antibiotics (i.e. Ciprofloxacin, Azithromycin, Bactrim) which may potentiate the action of oral anticoagulants, with further increases in Protime/INR. PT International Ratio 1.0 ratio Invalid Interpretation Code [facility] Comment on above: Interpretive Data: [employer] (CHEST, 1991, 102:312S-25S) recommended therapeutic range for oral anticoagulant therapy is: LOW RISK: Prophylaxis of venous thrombosis INR: 2.0-3.0 Treatment of pulmonary embolism 2.0-3.0 Prevention of systemic embolism 2.0-3.0 HIGH RISK: Mechanical prosthetic valves 2.5-3.5 LACon 11-18-2023 Lactic Acid Lvl 1.0 mmol/L Normal 0.4-2.0 [facility] ([place]) Comment on above: Performed By: #### L AC ####[address] [place], [place] [address] PROon 11-18-2023 INR Coag (PPP) [Relative time] 1.0 {INR} Normal [facility] ([place]) Comment on above: Result Comment: [employer] (CHEST, 1991, 102:312S-25S)recommended therapeutic range for oral anticoagulant therapy is:LOW RISK: Prophylaxis of venous thrombosis INR: 2.0-3.0 Treatment of pulmonary embolism 2.0-3.0 Prevention of systemic embolism 2.0-3.0HIGH RISK: Mechanical prosthetic valves 2.5-3.5 Performed By: #### P RO ####[address] [address] PT Coag (PPP) [Time] 11.0 s Normal 9.0-14.4 [facility] ([place]) Comment on above: Result Comment: Effe ctive 12/11/07, Protime results may be affected by some antibiotics (i.e. Ciprofloxacin, Azithromycin, Bactrim) which may potentiate the action of oral anticoagulants, with further increases in Protime/INR. Performed By: #### P RO ####[address] [address] XR CHEST 1 VIEWon 11-18-2023 XR CHEST 1 VIEW Normal [facility] ([place]) .GFRon 11-17-2023 GFR 70 ml/min/1.73sqm Normal [facility] ([place]) Comment on above: Result Comment: GFR Population mean for , Non- Americans Ages 20-29 = 116 mL/min/1.73 sq.m. Ages 30-39 = 107 mL/min/1.73 sq.m. Ages 40-49 = 99 mL/min/1.73 sq.m. Ages 50-59 = 93 mL/min/1.73 sq.m. Ages 60-69 = 85 mL/min/1.73 sq.m. Ages 70+ = 75 mL/min/1.73 sq.m.Chronic Kidney Disease: Less than 60 mL/min/1.73 square metersEnd Stage Renal Disease: Less than 15 mL/min/1.73 square meters Performed By: #### L AC, CBC, PRO, MDW, GFR, DIFF, MORPH, CMP ####[address] [place], [place] [address] GFR Non- 57 ml/min/1.73sqm Normal [facility] ([place]) Comment on above: Result Comment: GFR Population mean for , Non- Americans Ages 20-29 = 116 mL/min/1.73 sq.m. Ages 30-39 = 107 mL/min/1.73 sq.m. Ages 40-49 = 99 mL/min/1.73 sq.m. Ages 50-59 = 93 mL/min/1.73 sq.m. Ages 60-69 = 85 mL/min/1.73 sq.m. Ages 70+ = 75 mL/min/1.73 sq.m.Chronic Kidney Disease: Less than 60 mL/min/1.73 square metersEnd Stage Renal Disease: Less than 15 mL/min/1.73 square meters Performed By: #### L AC, CBC, PRO, MDW, GFR, DIFF, MORPH, CMP ####[address] [place], [place] [address] .MDWon 11-17-2023 Monocyte Distribution Width 27.57 High 0.00-20.00 [facility] ([place]) Comment on above: Result Comment: The predictive value of MDW for identifying sepsis in patients with hematological abnormalities has not been established Performed By: #### L AC, CBC, PRO, MDW, GFR, DIFF, MORPH, CMP ####[address] [place], [place] [address] .Manual Diffon 11-17-2023 Basophil %, Manual 0.0 % Normal 0.0-2.5 [facility] ([place]) Comment on above: Performed By: #### L AC, CBC, PRO, MDW, GFR, DIFF, MORPH, CMP ####[address] [place], [place] [address] Basophil, Abs Manual 0.0 10 3/mcL Normal 0.0-0.2 [facility] ([place]) Comment on above: Performed By: #### L AC, CBC, PRO, MDW, GFR, DIFF, MORPH, CMP ####[address] [place], [place] [address] Eosinophil %, Manual 1.0 % Normal 0.0-7.0 [facility] ([place]) Comment on above: Performed By: #### L AC, CBC, PRO, MDW, GFR, DIFF, MORPH, CMP ####[address] [place], [place] [address] Eosinophil, Abs Manual 0.1 10 3/mcL Normal 0.0-0.4 [facility] ([place]) Comment on above: Performed By: #### L AC, CBC, PRO, MDW, GFR, DIFF, MORPH, CMP ####[address] [place], [place] [address] Lymphocyte %, Manual 54.0 % High 10.0-50.0 [facility] ([place]) Comment on above: Performed By: #### L AC, CBC, PRO, MDW, GFR, DIFF, MORPH, CMP ####[address] [place], [place] [address] Lymphocyte, Abs Manual 6.2 10 3/mcL High 0.8-3.9 [facility] ([place]) Comment on above: Performed By: #### L AC, CBC, PRO, MDW, GFR, DIFF, MORPH, CMP ####[address] [place], [place] [address] Monocyte %, Manual 9.0 % Normal 1.7-13.0 [facility] ([place] Comment on above: Performed By: #### L AC, CBC, PRO, MDW, GFR, DIFF, MORPH, CMP ####[address] [place], [place] [address] Monocyte, Abs Manual 1.0 10 3/mcL Normal 0.2-1.0 [facility] ([place]) Comment on above: Performed By: #### L AC, CBC, PRO, MDW, GFR, DIFF, MORPH, CMP ####[address] [place], [place] [address] Neutrophil %, Manual 36.0 % Low 37.0-80.0 [facility] ([place]) Comment on above: Performed By: #### L AC, CBC, PRO, MDW, GFR, DIFF, MORPH, CMP ####[address] [place], [place] [address] Neutrophil, Abs Manual 4.1 10 3/mcL Normal 2.9-6.2 [facility] ([place]) Comment on above: Performed By: #### L AC, CBC, PRO, MDW, GFR, DIFF, MORPH, CMP ####[address] [place], [place] [address] Nucleated RBC 0.0 /100 WBC Normal [facility] ([place]) Comment on above: Performed By: #### L AC, CBC, PRO, MDW, GFR, DIFF, MORPH, CMP ####[address] [place], [place] [address] .Morphon 11-17-2023 Platelet Estimate Normal Normal [facility] ([place]) Comment on above: Performed By: #### L AC, CBC, PRO, MDW, GFR, DIFF, MORPH, CMP ####[address] [place] [address] .Urinalysis Microscopic (AO) on 11-17-2023 UA Bacteria 3+ /hpf Abnormal [facility] ([place]) Comment on above: Performed By: #### U A, UAMICAO ####[address] [place] [address] UA RBC 5-10 Abnormal None Seen [facility] ([place]) Comment on above: Performed By: #### U A, UAMICAO ####[address] [place] [address] UA Squam Epithelial 10-15 Abnormal None Seen [facility] ([place] Comment on above: Performed By: #### U A, UAMICAO ####[address] [place] [address] UA WBC LOADED Abnormal None Seen [facility] ([place] Comment on above: Performed By: #### U A, UAMICAO ####[address] [place] [address] CBCon 11-17-2023 Erythrocyte distribution width (RBC) [Ratio] 15.4 % High 11.5-14.5 [facility] ([place]) Comment on above: Performed By: #### L AC, CBC, PRO, MDW, GFR, DIFF, MORPH, CMP ####[address] [place] [address] Hematocrit (Bld) [Volume fraction] 36.7 % Low 37.0-47.0 [facility] ([place]) Comment on above: Performed By: #### L AC, CBC, PRO, MDW, GFR, DIFF, MORPH, CMP ####[address] [place] [address] Hgb 12.3 G/dL Normal 12.0-16.0 [facility] ([place] Comment on above: Performed By: #### L AC, CBC, PRO, MDW, GFR, DIFF, MORPH, CMP ####[address] [place], [place] [address] MCH (RBC) [Entitic mass] 30.2 pg Normal 27.0-31.2 [facility] ([place] Comment on above: Performed By: #### L AC, CBC, PRO, MDW, GFR, DIFF, MORPH, CMP ####[address] [place], [place] [address] MCHC 33.5 G/dL Normal 33.0-37.0 [facility] ([place]) Comment on above: Performed By: #### L AC, CBC, PRO, MDW, GFR, DIFF, MORPH, CMP ####[address] [place], [place] [address] MCV (RBC) [Entitic vol] 90.4 fL Normal 80.0-94.0 A [facility] ([place]) Comment on above: Performed By: #### L AC, CBC, PRO, MDW, GFR, DIFF, MORPH, CMP ####[address] [place], [place] [address] Platelet 172 10 3/mcL Normal 130-400 [facility] ([place]) Comment on above: Performed By: #### L AC, CBC, PRO, MDW, GFR, DIFF, MORPH, CMP ####[address] [place], [place] [address] Platelet mean volume (Bld) [Entitic vol] 7.7 fL Normal 7.4-10.4 [facility] ([place]) Comment on above: Performed By: #### L AC, CBC, PRO, MDW, GFR, DIFF, MORPH, CMP ####[address] [place], [place] [address] RBC 4.06 10 6/mcL Low 4.20-5.40 [facility] ([place]) Comment on above: Performed By: #### L AC, CBC, PRO, MDW, GFR, DIFF, MORPH, CMP ####[address] [place], [place] [address] WBC 11.5 10 3/mcL High 4.6-10.8 [facility] ([place]) Comment on above: Performed By: #### L AC, CBC, PRO, MDW, GFR, DIFF, MORPH, CMP ####[address] [place], [place] [address] CMPon 11-17-2023 Albumin Level 2.8 G/dL Low 3.5-5.0 [facility] ([place]) Comment on above: Performed By: #### L AC, CBC, PRO, MDW, GFR, DIFF, MORPH, CMP ####[address] [place], [place] [address] Albumin/Globulin [Mass ratio] 0.7 {ratio} Low 1.1-2.5 [facility] ([place]) Comment on above: Performed By: #### L AC, CBC, PRO, MDW, GFR, DIFF, MORPH, CMP ####[address] [place], [place] [address] ALP [Catalytic activity/Vol] 112 U/L Normal 40-135 [facility] ([place]) Comment on above: Performed By: #### L AC, CBC, PRO, MDW, GFR, DIFF, MORPH, CMP ####[address] [place], [place] [address] ALT [Catalytic activity/Vol] 63 U/L High 14-59 [facility] ([place]) Comment on above: Performed By: #### L AC, CBC, PRO, MDW, GFR, DIFF, MORPH, CMP ####[address] [place], [place] [address] AST [Catalytic activity/Vol] 62 U/L High 10-40 [facility] ([place]) Comment on above: Performed By: #### L AC, CBC, PRO, MDW, GFR, DIFF, MORPH, CMP ####[address] [place], [place] [address] Bili Total 0.4 mg/dL Normal 0.2-1.0 [facility] ([place]) Comment on above: Result Comment: Use of this assay is not recommended for patients undergoing treatment with eltrombopag due to the potential for falsely elevated results. Performed By: #### L AC, CBC, PRO, MDW, GFR, DIFF, MORPH, CMP ####[address] [place], [place] [address] BUN/Creatinine Ratio 10 ratio Normal 7-27 [facility] ([place] Comment on above: Performed By: #### L AC, CBC, PRO, MDW, GFR, DIFF, MORPH, CMP ####[address] [place], [place] [address] Calcium [Mass/Vol] 8.0 mg/dL Low 8.4-10.2 [facility] ([place] Comment on above: Performed By: #### L AC, CBC, PRO, MDW, GFR, DIFF, MORPH, CMP ####[address] [place], [place] [address] Chloride [Moles/Vol] 99 mmol/L Normal 98-107 [facility] ([place] Comment on above: Performed By: #### L AC, CBC, PRO, MDW, GFR, DIFF, MORPH, CMP ####[address] [place], [place] [address] CO2 [Moles/Vol] 24 mmol/L Normal 22-29 [facility] ([place] Comment on above: Performed By: #### L AC, CBC, PRO, MDW, GFR, DIFF, MORPH, CMP ####[address] [place], [place] [address] Creatinine [Mass/Vol] 1.05 mg/dL High 0.55-1.02 [facility] ([place] Comment on above: Performed By: #### L AC, CBC, PRO, MDW, GFR, DIFF, MORPH, CMP ####[address] [place], [place] [address] Electrolyte Balance 9.0 mEq/L Normal 4.0-15.0 [facility] ([place] Comment on above: Performed By: #### L AC, CBC, PRO, MDW, GFR, DIFF, MORPH, CMP ####[address] [place], [place] [address] Globulin 4.0 G/dL Normal [facility] ([place] Comment on above: Performed By: #### L AC, CBC, PRO, MDW, GFR, DIFF, MORPH, CMP ####[address] [place], [place] [address] Glucose [Mass/Vol] 295 mg/dL High 70-105 [facility] ([place] Comment on above: Performed By: #### L AC, CBC, PRO, MDW, GFR, DIFF, MORPH, CMP ####[address] [place], [place] [address] Potassium [Moles/Vol] 4.0 mmol/L Normal 3.5-5.1 [facility] ([place] Comment on above: Performed By: #### L AC, CBC, PRO, MDW, GFR, DIFF, MORPH, CMP ####[address] [place], [place] [address] Sodium [Moles/Vol] 132 mmol/L Low 136-145 [facility] ([place] Comment on above: Performed By: #### L AC, CBC, PRO, MDW, GFR, DIFF, MORPH, CMP ####[address] [place], [place] [address] Total Protein 6.8 G/dL Normal 6.4-8.2 [facility]) Comment on above: Performed By: #### L AC, CBC, PRO, MDW, GFR, DIFF, MORPH, CMP ####[address] [place], [place] [address] Urea nitrogen [Mass/Vol] 10 mg/dL Normal 7-18 [facility]) Comment on above: Performed By: #### L AC, CBC, PRO, MDW, GFR, DIFF, MORPH, CMP ####[address] [place], [place] [address] LABORATORYOrdered By: Rebceca Farrell on 11-17-2023 Appearance (U) Slightly Cloudy *ABN* (11/17/23 11:39 PM) Invalid Interpretation Code Clear AO Auto Urine SS Bacteria LM.HPF (Urine sed) [#/Area] 3 /[HPF] Invalid Interpretation Code AO Auto Urine SS Bilirubin Ql (U) Negative (11/17/23 11:39 PM) Normal Negative AO Auto Urine SS Color (U) Yellow (11/17/23 11:39 PM) Normal AO Auto Urine SS Glucose Test strip (U) [Mass/Vol] 500 mg/dL Invalid Interpretation Code Negative AO Auto Urine SS Hemoglobin Auto test strip (U) [Mass/Vol] Moderate *ABN* (11/17/23 11:39 PM) Invalid Interpretation Code Negative AO Auto Urine SS Ketones Ql (U) Trace mg/dL Invalid Interpretation Code Negative AO Auto Urine SS UA Leuk Est Small *ABN* (11/17/23 11:39 PM) Invalid Interpretation Code Negative AO Auto Urine SS UA Nitrite Positive *ABN* (11/17/23 11:39 PM) Invalid Interpretation Code Negative AO Auto Urine SS UA pH 7.0 (11/17/23 11:39 PM) Normal 5.0 - 8.0 AO Auto Urine SS UA Protein 100 mg/dL Invalid Interpretation Code Negative AO Auto Urine SS UA RBC 5-10 /HPF Invalid Interpretation Code None Seen AO Auto Urine SS UA Spec Grav 1.025 (11/17/23 11:39 PM) Normal 1.015-1.02 5 AO Auto Urine SS UA Specimen Type Clean Catch (11/17/23 11:39 PM) Normal AO Auto Urine SS UA Squam Epithelial 10-15 /HPF Invalid Interpretation Code None Seen AO Auto Urine SS UA Urobilinogen 0.2 E.U./dL Normal 0.2-1.0 AO Auto Urine SS WBC LM.HPF (Urine sed) [#/Area] LOADED /HPF Invalid Interpretation Code None Seen AO Auto Urine SS INR Coag (PPP) [Relative time] 1.0 {INR} Invalid Interpretation Code AO [facility] SS Comment on above: Interpretive Data: [employer] (CHEST, 1991, 102:312S-25S) recommended therapeutic range for oral anticoagulant therapy is: LOW RISK: Prophylaxis of venous thrombosis INR: 2.0-3.0 Treatment of pulmonary embolism 2.0-3.0 Prevention of systemic embolism 2.0-3.0 HIGH RISK: Mechanical prosthetic valves 2.5-3.5 PT Coag (PPP) [Time] 11.6 s Normal 9.0 - 1 4.4 seconds AO [facility] SS LABORATORYOrdered By: SYSTEM SYSTEM on 11-17-2023 Albumin BCP dye [Mass/Vol] 2.8 G/dL Low 3.5 - 5.0 G/dL AO ADM SS Albumin/Globulin [Mass ratio] 0.7 {ratio} Low 1.1 - 2.5 ratio AO ADM SS ALP [Catalytic activity/Vol] 112 U/L Normal 40 - 135 U/L AO ADM SS ALT With P-5'-P [Catalytic activity/Vol] 63 U/L High 14 - 59 U/L AO ADM SS AST With P-5'-P [Catalytic activity/Vol] 62 U/L High 10 - 40 U/L AO ADM SS Basophil %, Manual 0.0 % Normal 0.0 - 2.5 % AO Workflow SS Basophil, Abs Manual 0.0 103/mcL Normal 0.0 - 0 .2 10^3/mcL AO Workflow SS Bilirubin [Mass/Vol] 0.4 mg/dL Normal 0.2 - 1 .0 mg/dL AO ADM SS Comment on above: Interpretive Data: U se of this assay is not recommended for patients undergoing treatment with eltrombopag due to the potential for falsely elevated results. Calcium [Mass/Vol] 8.0 mg/dL Low 8.4 - 10. 2 mg/dL AO ADM SS Chloride [Moles/Vol] 99 mmol/L Normal 98 - 10 7 mmol/L AO ADM SS CO2 [Moles/Vol] 24 mmol/L Normal 22 - 29 mmol/L AO ADM SS Creatinine [Mass/Vol] 1.05 mg/dL High 0.55 - 1.02 mg/dL AO ADM SS Electrolyte Balance 9.0 mEq/L Normal 4.0 - 15 .0 mEq/L AO ADM SS Eosinophil %, Manual 1.0 % Normal 0.0 - 7 .0 % AO Workflow SS Eosinophils (Bld) [#/Vol] 0.1 103/mcL Normal 0.0 - 0.4 10^3/mcL AO Workflow SS Erythrocyte distribution width (RBC) [Ratio] 15.4 % High 11.5 - 14.5 % AO Workflow SS GFR/1.73 sq M.predicted among blacks MDRD (S/P/Bld) [Vol rate/Area] 70 ml/min/1.73sqm Invalid Interpretation Code AO Chemistry S Comment on above: Interpretive Data: GFR Population mean for , Non- Americans Ages 20-29 = 116 mL/min/1.73 sq.m. Ages 30-39 = 107 mL/min/1.73 sq.m. Ages 40-49 = 99 mL/min/1.73 sq.m. Ages 50-59 = 93 mL/min/1.73 sq.m. Ages 60-69 = 85 mL/min/1.73 sq.m. Ages 70+ = 75 mL/min/1.73 sq.m. Chronic Kidney Disease: Less than 60 mL/min/1.73 square meters End Stage Renal Disease: Less than 15 mL/min/1.73 square meters GFR/1.73 sq M.predicted among non-blacks MDRD (S/P/Bld) [Vol rate/Area] 57 ml/min/1.73sqm Invalid Interpretation Code AO Chemistry S Comment on above: Interpretive Data: GFR Population mean for , Non- Americans Ages 20-29 = 116 mL/min/1.73 sq.m. Ages 30-39 = 107 mL/min/1.73 sq.m. Ages 40-49 = 99 mL/min/1.73 sq.m. Ages 50-59 = 93 mL/min/1.73 sq.m. Ages 60-69 = 85 mL/min/1.73 sq.m. Ages 70+ = 75 mL/min/1.73 sq.m. Chronic Kidney Disease: Less than 60 mL/min/1.73 square meters End Stage Renal Disease: Less than 15 mL/min/1.73 square meters Globulin 4.0 G/dL Invalid Interpretation Code AO ADM SS Glucose [Mass/Vol] 295 mg/dL High 70 - 105 mg/dL AO ADM SS Hematocrit (Bld) [Volume fraction] 36.7 % Low 37.0 - 47.0 % AO Workflow SS Hemoglobin (Bld) [Mass/Vol] 12.3 G/dL Normal 12.0 - 16.0 G/dL AO Workflow SS Lactate [Moles/Vol] 1.8 mmol/L Normal 0.4 - 2. 0 mmol/L AO ADM SS Lactate [Moles/Vol] 1.0 mmol/L Normal 0.4 - 2. 0 mmol/L AO ADM SS Lymphocyte %, Manual 54.0 % High 10.0 - 50.0 % AO Workflow SS Lymphocyte, Abs Manual 6.2 103/mcL High 0.8 - 3.9 10^3/mcL AO Workflow SS MCH (RBC) [Entitic mass] 30.2 pg Normal 27.0 - 31.2 pg AO Workflow SS MCHC 33.5 G/dL Normal 33.0 - 37.0 G/dL AO Workflow SS MCV (RBC) [Entitic vol] 90.4 fL Normal 80.0 - 94.0 fL AO Workflow SS Monocyte %, Manual 9.0 % Normal 1.7 - 13. 0 % AO Workflow SS Monocyte distribution width Auto (Bld) [Entitic vol] 27.57 1 High 0.00 - 20.00 AO Workflow SS Comment on above: Result Comment: The predictive value of MDW for identifying sepsis in patients with hematological abnormalities has not been established Monocyte, Abs Manual 1.0 103/mcL Normal 0.2 - 1 .0 10^3/mcL AO Workflow SS Neutrophil %, Manual 36.0 % Low 37.0 - 80.0 % AO Workflow SS Neutrophil, Abs Manual 4.1 103/mcL Normal 2.9 - 6.2 10^3/mcL AO Workflow SS Nucleated RBC 0.0 /100 WBC Invalid Interpretation Code AO Workflow SS Platelet Estimate Normal *NA* (11/17/23 11:12 PM) Invalid Interpretation Code AO Workflow SS Platelet mean volume (Bld) [Entitic vol] 7.7 fL Normal 7.4 - 10.4 fL AO Workflow SS Platelets (Bld) [#/Vol] 172 103/mcL Normal 130 - 400 10^3/mcL AO Workflow SS Potassium [Moles/Vol] 4.0 mmol/L Normal 3.5 - 5.1 mmol/L AO ADM SS Protein [Mass/Vol] 6.8 G/dL Normal 6.4 - 8.2 G/dL AO ADM SS RBC (Bld) [#/Vol] 4.06 106/mcL Low 4.20 - 5.40 10^6/mcL AO Workflow SS Sodium [Moles/Vol] 132 mmol/L Low 136 - 145 mmol/L AO ADM SS Urea nitrogen [Mass/Vol] 10 mg/dL Normal 7 - 18 mg/dL AO ADM SS Urea nitrogen/Creatinine [Mass ratio] 10 ratio Normal 7 - 27 ratio AO ADM SS WBC (Bld) [#/Vol] 11.5 103/mcL High 4.6 - 10.8 10^3/mcL AO Workflow SS LACon 11-17-2023 Lactic Acid Lvl 1.8 mmol/L Normal 0.4-2.0 [facility] Comment on above: Performed By: #### L AC, CBC, PRO, MDW, GFR, DIFF, MORPH, CMP ####[address] [place], [place] [address] No Panel Informationon 11-16 Microscopic examination of blood, culture Culture has been received in lab and is no growth to date. Routine cultures are held for [address] [facility] PROon 11-17-2023 PT Coag (PPP) [Time] 11.6 s Normal 9.0-14.4 [facility] ([place]) Comment on above: Performed By: #### L AC, CBC, PRO, MDW, GFR, DIFF, MORPH, CMP ####[address] [place], [place] [address] PT International Ratio 1.0 Normal [facility] ([place]) Comment on above: Result Comment: [employer] (CHEST, 1992, 102:312S-25S)recommended therapeutic range for oral anticoagulant therapy is:LOW RISK: Prophylaxis of venous thrombosis INR: 2.0-3.0 Treatment of pulmonary embolism 2.0-3.0 Prevention of systemic embolism 2.0-3.0HIGH RISK: Mechanical prosthetic valves 2.5-3.5 Performed By: #### L AC, CBC, PRO, MDW, GFR, DIFF, MORPH, CMP ####[address] [place], [place] [address] UAon 11-17-2023 Color (U) Yellow Normal [facility] ([place]) Comment on above: Performed By: #### U A, UAMICAO ####[address] [place], [place] [address] Glucose (U) [Mass/Vol] 500 mg/dL Abnormal Negative [facility] ([place] Comment on above: Performed By: #### U A, UAMICAO ####[address] [place], [place] [address] Ketones Ql (U) Trace Abnormal Negative [facility] ([place]) Comment on above: Performed By: #### U A, UAMICAO ####[address] [place], [place] [address] UA Appear Slightly Cloudy Abnormal Clear [facility] ([place]) Comment on above: Performed By: #### U A, UAMICAO ####Sarwat [address] [place], [place] [address] UA Blood Moderate Abnormal Negative [facility] ([place] Comment on above: Performed By: #### U A, UAMICAO ####Sarwat [address] [place] [address] UA Leuk Est Small Abnormal Negative [facility] ([place] Comment on above: Performed By: #### U A, UAMICAO ####[address]wat [address] [place] [address] UA Nitrite Positive Abnormal Negative [facility] ([place] Comment on above: Performed By: #### U A, UAMICAO ####[address] [place] [address] UA pH 7.0 Normal 5.0 - 8.0 [facility] ([place] Comment on above: Performed By: #### U A, UAMICAO ####[address] [place] [address] UA Protein 100 mg/dL Abnormal Negative [facility] ([place] Comment on above: Performed By: #### U A, UAMICAO ####[address] [place], [place] [address] UA Spec Grav 1.025 Normal 1.015-1.02 5 [facility] ([place] Comment on above: Performed By: #### U A, UAMICAO ####[address] [place] [address] UA Specimen Type Clean Catch Normal [facility] ([place] Comment on above: Performed By: #### U A, UAMICAO ####Sarwat [address] [place] [id number] UA Urobilinogen 0.2 E.U./dL Normal 0.2-1.0 [facility] ([place]) Comment on above: Performed By: #### U A, UAMICAO ####Sarwat [address] [place], [place] [address] Urobilinogen (U) [Mass/Vol] Negative Normal Negative [facility] ([place]) Comment on above: Performed By: #### U A UAMICAO ####Sarwat [address] [place], [place] [address] CURon 11-04-2023 CUR Normal [facility] ([place]) CURon 11-03-2023 CUR Normal [facility] ([place]) .GFRon 11-02-2023 GFR Non- 46 ml/min/1.73sqm Normal [facility] ([place]) Comment on above: Result Comment: GFR Population mean for , Non- Americans Ages 20-29 = 116 mL/min/1.73 sq.m. Ages 30-39 = 107 mL/min/1.73 sq.m. Ages 40-49 = 99 mL/min/1.73 sq.m. Ages 50-59 = 93 mL/min/1.73 sq.m. Ages 60-69 = 85 mL/min/1.73 sq.m. Ages 70+ = 75 mL/min/1.73 sq.m.Chronic Kidney Disease: Less than 60 mL/min/1.73 square metersEnd Stage Renal Disease: Less than 15 mL/min/1.73 square meters Performed By: #### B MP, GFR, MG ####Sarwat [address] [place], [place] [address] GFR 56 ml/min/1.73sqm Normal [facility] ([place]) Comment on above: Result Comment: GFR Population mean for , Non- Americans Ages 20-29 = 116 mL/min/1.73 sq.m. Ages 30-39 = 107 mL/min/1.73 sq.m. Ages 40-49 = 99 mL/min/1.73 sq.m. Ages 50-59 = 93 mL/min/1.73 sq.m. Ages 60-69 = 85 mL/min/1.73 sq.m. Ages 70+ = 75 mL/min/1.73 sq.m.Chronic Kidney Disease: Less than 60 mL/min/1.73 square metersEnd Stage Renal Disease: Less than 15 mL/min/1.73 square meters Performed By: #### B MP, GFR, MG ####Sarwat [address] [place], [place] [address] .Urinalysis Microscopic (AO) on 11-02-2023 UA Bacteria Trace Abnormal [facility] ([place]) Comment on above: Performed By: #### U A, UAMICAO ####Sarwat [address] [place], [place] [address] UA Hyal Cast 0-5 Abnormal [facility] ([place]) Comment on above: Performed By: #### U A, UAMICAO ####Sarwat [address] [place], [place] [address] UA RBC 0-5 Abnormal None Seen [facility] ([place]) Comment on above: Performed By: #### U A, UAMICAO ####Sarwat [address] [place], [place] [address] UA Squam Epithelial LOADED Abnormal None Seen [facility] ([place]) Comment on above: Performed By: #### U A, UAMICAO ####Sarwat [address] [place], [place] [address] UA WBC 10-15 Abnormal None Seen [facility] ([place]) Comment on above: Performed By: #### U A, UAMICAO ####Sarwat [address] [place], [place] [address] BMPon 11-02-2023 BUN/Creatinine Ratio 12 ratio Normal 7-27 [facility] ([place]) Comment on above: Performed By: #### B MP, GFR, MG ####Sarwat [address] [place], [place] [address] Calcium [Mass/Vol] 8.6 mg/dL Normal 8.4-10.2 [facility] ([place]) Comment on above: Performed By: #### B MP, GFR, MG ####Sarwat [address] [place], [place] [address] Chloride [Moles/Vol] 102 mmol/L Normal 98-107 [facility] ([place]) Comment on above: Performed By: #### B MP, GFR, MG ####Sarwat [address] [place], [place] [address] CO2 [Moles/Vol] 28 mmol/L Normal 22-29 [facility] ([place]) Comment on above: Performed By: #### B MP, GFR, MG ####Sarwat [address] [place], [place] [address] Creatinine [Mass/Vol] 1.28 mg/dL High 0.55-1.02 [facility] ([place]) Comment on above: Performed By: #### B MP, GFR, MG ####Sarwat [address] [place], [place] [address] Electrolyte Balance 8.0 mEq/L Normal 4.0-15.0 [facility] ([place]) Comment on above: Performed By: #### B MP, GFR, MG ####Sarwat [address] [place], [place] [address] Glucose [Mass/Vol] 193 mg/dL High 70-105 [facility] ([place]) Comment on above: Performed By: #### B MP, GFR, MG ####Sarwat [address] [place], [place] [address] Potassium [Moles/Vol] 4.0 mmol/L Normal 3.5-5.1 [facility] ([place]) Comment on above: Performed By: #### B MP, GFR, MG ####Sarwat [address] [place], [place] [address] Sodium [Moles/Vol] 138 mmol/L Normal 136-145 [facility] ([place] Comment on above: Performed By: #### B MP, GFR, MG ####Sarwat [address] [place], [place] [address] Urea nitrogen [Mass/Vol] 16 mg/dL Normal 7-18 [facility] ([place]) Comment on above: Performed By: #### B MP, GFR, MG ####Sarwat [address] [place], [place] [address] LABORATORYOrdered By: Daniella Perez on 11-02-2023 Glucose [Mass/Vol] 170 mg/dL High 70 - 110 mg/dL [facility] Blood Glucose Testing Reason Routine (11/02/23 8:50 AM) [facility] Glucose [Mass/Vol] 184 mg/dL High 70 - 110 mg/dL [facility] LABORATORYOrdered By: Dl Neff on 11-02-2023 Appearance (U) Cloudy *ABN* (11/02/23 9:59 AM) Invalid Interpretation Code Clear AO Auto Urine SS Bacteria LM.HPF (Urine sed) [#/Area] Trace /HPF Invalid Interpretation Code AO Auto Urine SS Bilirubin Ql (U) Negative (11/02/23 9:59 AM) Normal Negative AO Auto Urine SS Color (U) Dark yellow Invalid Interpretation Code AO Auto Urine SS Glucose Test strip (U) [Mass/Vol] 250 mg/dL Invalid Interpretation Code Negative AO Auto Urine SS Hemoglobin Auto test strip (U) [Mass/Vol] Negative (11/02/23 9:59 AM) Normal Negative AO Auto Urine SS Ketones Ql (U) Trace mg/dL Invalid Interpretation Code Negative AO Auto Urine SS UA Hyal Cast 0-5 /LPF Invalid Interpretation Code AO Auto Urine SS UA Leuk Est Negative (11/02/23 9:59 AM) Normal Negative AO Auto Urine SS UA Nitrite Negative (11/02/23 9:59 AM) Normal Negative AO Auto Urine SS UA pH 6.0 (11/02/23 9:59 AM) Normal 5.0 - 8.0 AO Auto Urine SS UA Protein 30 mg/dL Normal Negative AO Auto Urine SS UA RBC 0-5 /HPF Invalid Interpretation Code None Seen AO Auto Urine SS UA Spec Grav 1.025 (11/02/23 9:59 AM) Normal 1.015-1.02 5 AO Auto Urine SS UA Specimen Type Cook Catheter (11/02/23 9:59 AM) Normal AO Auto Urine SS UA Squam Epithelial LOADED /HPF Invalid Interpretation Code None Seen AO Auto Urine SS UA Urobilinogen 0.2 E.U./dL Normal 0.2-1.0 AO Auto Urine SS WBC LM.HPF (Urine sed) [#/Area] 10-15 /HPF Invalid Interpretation Code None Seen AO Auto Urine SS LABORATORYOrdered By: SYSTEM SYSTEM on 11-02-2023 Calcium [Mass/Vol] 8.6 mg/dL Normal 8.4 - 10. 2 mg/dL AO ADM SS Chloride [Moles/Vol] 102 mmol/L Normal 98 - 10 7 mmol/L AO ADM SS CO2 [Moles/Vol] 28 mmol/L Normal 22 - 29 mmol/L AO ADM SS Creatinine [Mass/Vol] 1.28 mg/dL High 0.55 - 1.02 mg/dL AO ADM SS Electrolyte Balance 8.0 mEq/L Normal 4.0 - 15 .0 mEq/L AO ADM SS GFR/1.73 sq M.predicted among blacks MDRD (S/P/Bld) [Vol rate/Area] 56 ml/min/1.73sqm Invalid Interpretation Code AO Chemistry S Comment on above: Interpretive Data: GFR Population mean for , Non- Americans Ages 20-29 = 116 mL/min/1.73 sq.m. Ages 30-39 = 107 mL/min/1.73 sq.m. Ages 40-49 = 99 mL/min/1.73 sq.m. Ages 50-59 = 93 mL/min/1.73 sq.m. Ages 60-69 = 85 mL/min/1.73 sq.m. Ages 70+ = 75 mL/min/1.73 sq.m. Chronic Kidney Disease: Less than 60 mL/min/1.73 square meters End Stage Renal Disease: Less than 15 mL/min/1.73 square meters GFR/1.73 sq M.predicted among non-blacks MDRD (S/P/Bld) [Vol rate/Area] 46 ml/min/1.73sqm Invalid Interpretation Code AO Chemistry S Comment on above: Interpretive Data: GFR Population mean for , Non- Americans Ages 20-29 = 116 mL/min/1.73 sq.m. Ages 30-39 = 107 mL/min/1.73 sq.m. Ages 40-49 = 99 mL/min/1.73 sq.m. Ages 50-59 = 93 mL/min/1.73 sq.m. Ages 60-69 = 85 mL/min/1.73 sq.m. Ages 70+ = 75 mL/min/1.73 sq.m. Chronic Kidney Disease: Less than 60 mL/min/1.73 square meters End Stage Renal Disease: Less than 15 mL/min/1.73 square meters Glucose [Mass/Vol] 193 mg/dL High 70 - 105 mg/dL AO ADM SS Magnesium [Mass/Vol] 1.8 mg/dL Normal 1.8 - 2 .4 mg/dL AO ADM SS Potassium [Moles/Vol] 4.0 mmol/L Normal 3.5 - 5.1 mmol/L AO ADM SS Sodium [Moles/Vol] 138 mmol/L Normal 136 - 145 mmol/L AO ADM SS Urea nitrogen [Mass/Vol] 16 mg/dL Normal 7 - 18 mg/dL AO ADM SS Urea nitrogen/Creatinine [Mass ratio] 12 ratio Normal 7 - 27 ratio AO ADM SS MGon 11-02-2023 Magnesium [Mass/Vol] 1.8 mg/dL Normal 1.8-2.4 [facility] ([place]) Comment on above: Performed By: #### B MP, GFR, MG ####Sarwat [address] [place], [place] [address] UAon 11-02-2023 Color (U) Dark yellow Normal [facility] ([place]) Comment on above: Performed By: #### U A, UAMICAO ####Sarwat [address] [place], [place] [address] Glucose (U) [Mass/Vol] 250 mg/dL Abnormal Negative [facility] ([place]) Comment on above: Performed By: #### U A, UAMICAO ####Sarwat [address] [place], [place] [address] Ketones Ql (U) Trace Abnormal Negative [facility] ([place]) Comment on above: Performed By: #### U A, UAMICAO ####Sarwat [address] [place], [place] [address] UA Appear Cloudy Abnormal Clear [facility] ([place] Comment on above: Performed By: #### U A, UAMICAO ####Sarwat [address] [place], [place] [address] UA Blood Negative Normal Negative [facility] ([place]) Comment on above: Performed By: #### U A, UAMICAO ####Sarwat [address] [place], [place] [address] UA Leuk Est Negative Normal Negative [facility] ([place]) Comment on above: Performed By: #### U A, UAMICAO ####Sarwat [address] [place], [place] [address] UA Nitrite Negative Normal Negative [facility] ([place] Comment on above: Performed By: #### U A, UAMICAO ####Sarwat [address] [place], [place] [address] UA pH 6.0 Normal 5.0 - 8.0 [facility] ([place]) Comment on above: Performed By: #### U A, UAMICAO ####Sarwat [address] [place], [place] [address] UA Protein 30 mg/dL Normal Negative [facility] ([place] Comment on above: Performed By: #### U A, UAMICAO ####Sarwat [address] [place], [place] [address] UA Spec Grav 1.025 Normal 1.015-1.02 5 [facility] ([place]) Comment on above: Performed By: #### U A, UAMICAO ####Sarwat [address] [place], [place] [address] UA Specimen Type Cook Catheter Normal [facility] ([place] Comment on above: Performed By: #### U A, UAMICAO ####Sarwat [address] [place], [place] [address] UA Urobilinogen 0.2 E.U./dL Normal 0.2-1.0 [facility] ([place]) Comment on above: Performed By: #### U A, UAMICAO ####Sarwat [address] [place], [place] [address] Urobilinogen (U) [Mass/Vol] Negative Normal Negative [facility] ([place]) Comment on above: Performed By: #### U A, UAMICAO ####Sarwat [address] [place], [place] [address] .GFRon 11-01-2023 GFR 88 ml/min/1.73sqm Normal [facility] ([place]) Comment on above: Result Comment: GFR Population mean for , Non- Americans Ages 20-29 = 116 mL/min/1.73 sq.m. Ages 30-39 = 107 mL/min/1.73 sq.m. Ages 40-49 = 99 mL/min/1.73 sq.m. Ages 50-59 = 93 mL/min/1.73 sq.m. Ages 60-69 = 85 mL/min/1.73 sq.m. Ages 70+ = 75 mL/min/1.73 sq.m.Chronic Kidney Disease: Less than 60 mL/min/1.73 square metersEnd Stage Renal Disease: Less than 15 mL/min/1.73 square meters Performed By: #### A 1C, BMP, GFR, MORPH, DIFF, CBC ####Sarwat [address] [place], [place] [address] GFR Non- 73 ml/min/1.73sqm Normal [facility] ([place]) Comment on above: Result Comment: GFR Population mean for , Non- Americans Ages 20-29 = 116 mL/min/1.73 sq.m. Ages 30-39 = 107 mL/min/1.73 sq.m. Ages 40-49 = 99 mL/min/1.73 sq.m. Ages 50-59 = 93 mL/min/1.73 sq.m. Ages 60-69 = 85 mL/min/1.73 sq.m. Ages 70+ = 75 mL/min/1.73 sq.m.Chronic Kidney Disease: Less than 60 mL/min/1.73 square metersEnd Stage Renal Disease: Less than 15 mL/min/1.73 square meters Performed By: #### A 1C, BMP, GFR, MORPH, DIFF, CBC ####Sarwat [address] [place], [place] [address] .Manual Diffon 11-01-2023 Atypical Lymphs 4.0 % Normal 0.0-5.0 [facility] ([place]) Comment on above: Performed By: #### A 1C, BMP, GFR, MORPH, DIFF, CBC ####Sarwat [address] [place], [place] [address] Basophil %, Manual 0.0 % Normal 0.0-2.5 [facility] ([place]) Comment on above: Performed By: #### A 1C, BMP, GFR, MORPH, DIFF, CBC ####Sarwat [address] [place], [place] [address] Basophil, Abs Manual 0.0 10 3/mcL Normal 0.0-0.2 [facility] ([place]) Comment on above: Performed By: #### A 1C, BMP, GFR, MORPH, DIFF, CBC ####Sarwat [address] [place], [place] [address] Eosinophil %, Manual 0.0 % Normal 0.0-7.0 [facility] ([place] Comment on above: Performed By: #### A 1C, BMP, GFR, MORPH, DIFF, CBC ####Sarwat [address] [place], [place] [address] Eosinophil, Abs Manual 0.0 10 3/mcL Normal 0.0-0.4 [facility] ([place]) Comment on above: Performed By: #### A 1C, BMP, GFR, MORPH, DIFF, CBC ####Sarwat [address] [place], [place] [address] Lymphocyte %, Manual 34.0 % Normal 10.0-50.0 [facility] ([place] Comment on above: Performed By: #### A 1C, BMP, GFR, MORPH, DIFF, CBC ####Sarwat [address] [place], [place] [address] Lymphocyte, Abs Manual 2.2 10 3/mcL Normal 0.8-3.9 [facility] ([place]) Comment on above: Performed By: #### A 1C, BMP, GFR, MORPH, DIFF, CBC ####Sarwat [address] [place], [place] [address] Monocyte %, Manual 7.0 % Normal 1.7-13.0 [facility] ([place]) Comment on above: Performed By: #### A 1C, BMP, GFR, MORPH, DIFF, CBC ####[address] [place], [place] [address] Monocyte, Abs Manual 0.4 10 3/mcL Normal 0.2-1.0 [facility] ([place] Comment on above: Performed By: #### A 1C, BMP, GFR, MORPH, DIFF, CBC ####Sarwat [address] [place], [place] [address] Neutrophil %, Manual 55.0 % Normal 37.0-80.0 [facility] ([place] Comment on above: Performed By: #### A 1C, BMP, GFR, MORPH, DIFF, CBC ####Sarwat [address] [place], [place] [address] Nucleated RBC 0.0 /100 WBC Normal [facility] ([place]) Comment on above: Performed By: #### A 1C, BMP, GFR, MORPH, DIFF, CBC ####Sarwat [address] [place], [place] [address] Neutrophil, Abs Manual 3.5 10 3/mcL Normal 2.9-6.2 [facility]) Comment on above: Performed By: #### A 1C, BMP, GFR, MORPH, DIFF, CBC ####Sarwat [address] [place], [place] [address] .Morphon 11-01-2023 Platelet Estimate Normal Normal [facility]) Comment on above: Performed By: #### A 1C, BMP, GFR, MORPH, DIFF, CBC ####Sarwat [address] [place], [place] [address] RBC morphology finding Nom (Bld) Normal Normal [facility] ([place]) Comment on above: Performed By: #### A 1C, BMP, GFR, MORPH, DIFF, CBC ####Sarwat [address] [place], [place] [address] A1Con 11-01-2023 HbA1c (Bld) [Mass fraction] 11.2 % High 4.3-6.4 [facility] ([place]) Comment on above: Performed By: #### A 1C, BMP, GFR, MORPH, DIFF, CBC ####Sarwat [address] [place], [place] [address] BMPon 11-01-2023 BUN/Creatinine Ratio 10 ratio Normal 7-27 [facility] ([place] Comment on above: Performed By: #### A 1C, BMP, GFR, MORPH, DIFF, CBC ####Sarwat [address] [place], [place] [address] Calcium [Mass/Vol] 8.2 mg/dL Low 8.4-10.2 [facility] ([place] Comment on above: Performed By: #### A 1C, BMP, GFR, MORPH, DIFF, CBC ####Sarwat [address] [place], [place] [address] Chloride [Moles/Vol] 104 mmol/L Normal 98-107 [facility] ([place] Comment on above: Performed By: #### A 1C, BMP, GFR, MORPH, DIFF, CBC ####Sarwat [address] [place], [place] [address] CO2 [Moles/Vol] 26 mmol/L Normal 22-29 [facility] ([place]) Comment on above: Performed By: #### A 1C, BMP, GFR, MORPH, DIFF, CBC ####Sarwat [address] [place], [place] [address] Creatinine [Mass/Vol] 0.86 mg/dL Normal 0.55-1.02 [facility] ([place] Comment on above: Performed By: #### A 1C, BMP, GFR, MORPH, DIFF, CBC ####Sarwat [address] [place], [place] [address] Electrolyte Balance 9.0 mEq/L Normal 4.0-15.0 [facility] ([place] Comment on above: Performed By: #### A 1C, BMP, GFR, MORPH, DIFF, CBC ####Sarwat [address] [place], [place] [address] Glucose [Mass/Vol] 148 mg/dL High 70-105 [facility] ([place] Comment on above: Performed By: #### A 1C, BMP, GFR, MORPH, DIFF, CBC ####Sarwat [address] [place], [place] [address] Potassium [Moles/Vol] 4.3 mmol/L Normal 3.5-5.1 [facility] ([place] Comment on above: Performed By: #### A 1C, BMP, GFR, MORPH, DIFF, CBC ####[facility] [place], [place] [address] Sodium [Moles/Vol] 139 mmol/L Normal 136-145 [facility] ([place] Comment on above: Performed By: #### A 1C, BMP, GFR, MORPH, DIFF, CBC ####Sarwat [address] [place], [place] [address] Urea nitrogen [Mass/Vol] 9 mg/dL Normal 7-18 [facility] ([place]) Comment on above: Performed By: #### A 1C, BMP, GFR, MORPH, DIFF, CBC ####Sarwat [address] [place], [place] [address] CBCon 11-01-2023 Erythrocyte distribution width (RBC) [Ratio] 14.8 % High 11.5-14.5 [facility] ([place]) Comment on above: Performed By: #### A 1C, BMP, GFR, MORPH, DIFF, CBC ####Sarwat [address] [place] [id number] Hematocrit (Bld) [Volume fraction] 37.2 % Normal 37.0-47.0 [facility] ([place]) Comment on above: Performed By: #### A 1C, BMP, GFR, MORPH, DIFF, CBC ####[facility] [place], [place] [address] Hgb 12.7 G/dL Normal 12.0-16.0 [facility] ([place]) Comment on above: Performed By: #### A 1C, BMP, GFR, MORPH, DIFF, CBC ####[facility] [place], [place] [address] MCH (RBC) [Entitic mass] 30.7 pg Normal 27.0-31.2 [facility] ([place] Comment on above: Performed By: #### A 1C, BMP, GFR, MORPH, DIFF, CBC ####Sarwat [address] [place], [place] [address] MCHC 34.0 G/dL Normal 33.0-37.0 [facility] ([place] Comment on above: Performed By: #### A 1C, BMP, GFR, MORPH, DIFF, CBC ####Sarwat [address] [place], [place] [address] MCV (RBC) [Entitic vol] 90.2 fL Normal 80.0-94.0 A [facility] ([place]) Comment on above: Performed By: #### A 1C, BMP, GFR, MORPH, DIFF, CBC ####Sarwat [address] [place], [place] [address] Platelet 131 10 3/mcL Normal 130-400 [facility] ([place]) Comment on above: Performed By: #### A 1C, BMP, GFR, MORPH, DIFF, CBC ####Sarwat [address] [place], [place] [address] Platelet mean volume (Bld) [Entitic vol] 8.0 fL Normal 7.4-10.4 [facility] ([place]) Comment on above: Performed By: #### A 1C, BMP, GFR, MORPH, DIFF, CBC ####Sarwat [address] [place], [place] [address] RBC 4.12 10 6/mcL Low 4.20-5.40 [facility] ([place]) Comment on above: Performed By: #### A 1C, BMP, GFR, MORPH, DIFF, CBC ####Sarwat [address] [place], [place] [address] WBC 6.5 10 3/mcL Normal 4.6-10.8 [facility] ([place]) Comment on above: Performed By: #### A 1C, BMP, GFR, MORPH, DIFF, CBC ####[place] [address] [place], [place] [address] CURon 11-01-2023 CUR [facility] ([place]) LABORATORYOrdered By: Jordan Shine on 11-01-2023 Blood Glucose Testing Reason Routine (11/01/23 9:38 PM) [facility] Glucose [Mass/Vol] 254 mg/dL High 70 - 110 mg/dL [facility] LABORATORYOrdered By: Coreen Escobar on 11-01-2023 Blood Glucose Testing Reason Routine (6/5/24 4:10 PM) [facility] LABORATORYOrdered By: SYSTEM SYSTEM on 11-01-2023 Basophil %, Manual 0.0 % Normal 0.0 - 2.5 % AO Workflow SS Basophil, Abs Manual 0.0 103/mcL Normal 0.0 - 0 .2 10^3/mcL AO Workflow SS Calcium [Mass/Vol] 8.2 mg/dL Low 8.4 - 10. 2 mg/dL AO ADM SS Chloride [Moles/Vol] 104 mmol/L Normal 98 - 10 7 mmol/L AO ADM SS CO2 [Moles/Vol] 26 mmol/L Normal 22 - 29 mmol/L AO ADM SS Creatinine [Mass/Vol] 0.86 mg/dL Normal 0.55 - 1.02 mg/dL AO ADM SS Electrolyte Balance 9.0 mEq/L Normal 4.0 - 15 .0 mEq/L AO ADM SS Eosinophil %, Manual 0.0 % Normal 0.0 - 7 .0 % AO Workflow SS Eosinophils (Bld) [#/Vol] 0.0 103/mcL Normal 0.0 - 0.4 10^3/mcL AO Workflow SS Erythrocyte distribution width (RBC) [Ratio] 14.8 % High 11.5 - 14.5 % AO Workflow SS GFR/1.73 sq M.predicted among blacks MDRD (S/P/Bld) [Vol rate/Area] 88 ml/min/1.73sqm Invalid Interpretation Code AO Chemistry S Comment on above: Interpretive Data: GFR Population mean for , Non- Americans Ages 20-29 = 116 mL/min/1.73 sq.m. Ages 30-39 = 107 mL/min/1.73 sq.m. Ages 40-49 = 99 mL/min/1.73 sq.m. Ages 50-59 = 93 mL/min/1.73 sq.m. Ages 60-69 = 85 mL/min/1.73 sq.m. Ages 70+ = 75 mL/min/1.73 sq.m. Chronic Kidney Disease: Less than 60 mL/min/1.73 square meters End Stage Renal Disease: Less than 15 mL/min/1.73 square meters GFR/1.73 sq M.predicted among non-blacks MDRD (S/P/Bld) [Vol rate/Area] 73 ml/min/1.73sqm Invalid Interpretation Code AO Chemistry S Comment on above: Interpretive Data: GFR Population mean for , Non- Americans Ages 20-29 = 116 mL/min/1.73 sq.m. Ages 30-39 = 107 mL/min/1.73 sq.m. Ages 40-49 = 99 mL/min/1.73 sq.m. Ages 50-59 = 93 mL/min/1.73 sq.m. Ages 60-69 = 85 mL/min/1.73 sq.m. Ages 70+ = 75 mL/min/1.73 sq.m. Chronic Kidney Disease: Less than 60 mL/min/1.73 square meters End Stage Renal Disease: Less than 15 mL/min/1.73 square meters Glucose [Mass/Vol] 148 mg/dL High 70 - 105 mg/dL AO ADM SS HbA1c (Bld) [Mass fraction] 11.2 % High 4.3 - 6.4 % AO ADM SS Hematocrit (Bld) [Volume fraction] 37.2 % Normal 37.0 - 47.0 % AO Workflow SS Hemoglobin (Bld) [Mass/Vol] 12.7 G/dL Normal 12.0 - 16.0 G/dL AO Workflow SS Lymphocyte %, Manual 34.0 % Normal 10.0 - 50.0 % AO Workflow SS Lymphocyte, Abs Manual 2.2 103/mcL Normal 0.8 - 3.9 10^3/mcL AO Workflow SS Magnesium [Mass/Vol] 1.7 mg/dL Low 1.8 - 2 .4 mg/dL AO ADM SS MCH (RBC) [Entitic mass] 30.7 pg Normal 27.0 - 31.2 pg AO Workflow SS MCHC 34.0 G/dL Normal 33.0 - 37.0 G/dL AO Workflow SS MCV (RBC) [Entitic vol] 90.2 fL Normal 80.0 - 94.0 fL AO Workflow SS Monocyte %, Manual 7.0 % Normal 1.7 - 13. 0 % AO Workflow SS Monocyte, Abs Manual 0.4 103/mcL Normal 0.2 - 1 .0 10^3/mcL AO Workflow SS Neutrophil %, Manual 55.0 % Normal 37.0 - 80.0 % AO Workflow SS Neutrophil, Abs Manual 3.5 103/mcL Normal 2.9 - 6.2 10^3/mcL AO Workflow SS Nucleated RBC 0.0 /100 WBC Invalid Interpretation Code AO Workflow SS Platelet Estimate Normal *NA* (11/01/23 5:42 AM) Invalid Interpretation Code AO Workflow SS Platelet mean volume (Bld) [Entitic vol] 8.0 fL Normal 7.4 - 10.4 fL AO Workflow SS Platelets (Bld) [#/Vol] 131 103/mcL Normal 130 - 400 10^3/mcL AO Workflow SS Potassium [Moles/Vol] 4.3 mmol/L Normal 3.5 - 5.1 mmol/L AO ADM SS RBC (Bld) [#/Vol] 4.12 106/mcL Low 4.20 - 5.40 10^6/mcL AO Workflow SS RBC morphology finding Nom (Bld) Normal *NA* (11/01/23 5:42 AM) Invalid Interpretation Code AO Workflow SS Sodium [Moles/Vol] 139 mmol/L Normal 136 - 145 mmol/L AO ADM SS Urea nitrogen [Mass/Vol] 9 mg/dL Normal 7 - 18 mg/dL AO ADM SS Urea nitrogen/Creatinine [Mass ratio] 10 ratio Normal 7 - 27 ratio AO ADM SS Variant lymphocytes/100 WBC (Bld) 4.0 % Normal 0.0 - 5.0 % AO Workflow SS WBC (Bld) [#/Vol] 6.5 103/mcL Normal 4.6 - 10.8 10^3/mcL AO Workflow SS MGon 11-01-2023 Magnesium [Mass/Vol] 1.7 mg/dL Low 1.8-2.4 [facility] ([place] Comment on above: Performed By: #### Bayron Guillen ####[address] [place], [place] [address] No Panel Informationon 10-31 Culture Urine No growth to date [facility] .Auto Diffon 10-31-2023 Basophil, Absolute 0.1 10 3/mcL Normal 0.0-0.2 [facility] ([place]) Comment on above: Performed By: #### G FR, ANEU, MG, CMP, CBC, ADIFF ####Sar[address] [place], [place] [address] Basophils/100 WBC (Bld) 0.9 % Normal 0.0-2.5 A [facility] ([place]) Comment on above: Performed By: #### G FR, ANEU, MG, CMP, CBC, ADIFF ####Sarwat [id number] [place], [place] [address] Eosinophil, Absolute 0.1 10 3/mcL Normal 0.0-0.4 [facility] ([place]) Comment on above: Performed By: #### G FR, ANEU, MG, CMP, CBC, ADIFF ####[id number] [place], [place] [address] Eosinophils/100 WBC (Bld) 1.1 % Normal 0.0-7.0 [facility] ([place]) Comment on above: Performed By: #### G FR, ANEU, MG, CMP, CBC, ADIFF ####[address] [place], [place] [address] Lymphocyte, Absolute 2.3 10 3/mcL Normal 0.8-3.9 [facility] ([place]) Comment on above: Performed By: #### G FR, ANEU, MG, CMP, CBC, ADIFF ####[address] [place], [place] [address] Lymphocytes/100 WBC (Bld) 39.9 % Normal 10.0-50.0 [facility] ([place]) Comment on above: Performed By: #### G FR, ANEU, MG, CMP, CBC, ADIFF ####[id number] [place], [place] [address] Monocyte, Absolute 0.8 10 3/mcL Normal 0.2-1.0 [facility] ([place]) Comment on above: Performed By: #### G FR, ANEU, MG, CMP, CBC, ADIFF ####[address] [place], [place] [address] Monocytes/100 WBC (Bld) 14.4 % High 1.7-13.0 A [facility] ([place]) Comment on above: Performed By: #### G FR, ANEU, MG, CMP, CBC, ADIFF ####[id number] [place], [place] [address] Neutrophils/100 WBC (Bld) 43.7 % Normal 37.0-80.0 [facility] ([place]) Comment on above: Performed By: #### G FR, ANEU, MG, CMP, CBC, ADIFF ####[address] [place], [place] [address] .GFRon 10-31-2023 GFR 86 ml/min/1.73sqm Normal [facility] ([place]) Comment on above: Result Comment: GFR Population mean for , Non- Americans Ages 20-29 = 116 mL/min/1.73 sq.m. Ages 30-39 = 107 mL/min/1.73 sq.m. Ages 40-49 = 99 mL/min/1.73 sq.m. Ages 50-59 = 93 mL/min/1.73 sq.m. Ages 60-69 = 85 mL/min/1.73 sq.m. Ages 70+ = 75 mL/min/1.73 sq.m.Chronic Kidney Disease: Less than 60 mL/min/1.73 square metersEnd Stage Renal Disease: Less than 15 mL/min/1.73 square meters Performed By: #### G FR, ANEU, MG, CMP, CBC, ADIFF ####Sarwat [address] [place], [place] [address] GFR Non- 71 ml/min/1.73sqm Normal [facility] ([place]) Comment on above: Result Comment: GFR Population mean for , Non- Americans Ages 20-29 = 116 mL/min/1.73 sq.m. Ages 30-39 = 107 mL/min/1.73 sq.m. Ages 40-49 = 99 mL/min/1.73 sq.m. Ages 50-59 = 93 mL/min/1.73 sq.m. Ages 60-69 = 85 mL/min/1.73 sq.m. Ages 70+ = 75 mL/min/1.73 sq.m.Chronic Kidney Disease: Less than 60 mL/min/1.73 square metersEnd Stage Renal Disease: Less than 15 mL/min/1.73 square meters Performed By: #### G FR, ANEU, MG, CMP, CBC, ADIFF ####[address] [place], [place] [address] GFR 68 ml/min/1.73sqm Normal [facility] ([place]) Comment on above: Result Comment: GFR Population mean for , Non- Americans Ages 20-29 = 116 mL/min/1.73 sq.m. Ages 30-39 = 107 mL/min/1.73 sq.m. Ages 40-49 = 99 mL/min/1.73 sq.m. Ages 50-59 = 93 mL/min/1.73 sq.m. Ages 60-69 = 85 mL/min/1.73 sq.m. Ages 70+ = 75 mL/min/1.73 sq.m.Chronic Kidney Disease: Less than 60 mL/min/1.73 square metersEnd Stage Renal Disease: Less than 15 mL/min/1.73 square meters Performed By: #### M DW, ADIFF, CMP, GFR, CBC, LIP, ANEU ####[address]wat [address] [place], [place] [address] GFR Non- 56 ml/min/1.73sqm Normal [facility] ([place]) Comment on above: Result Comment: GFR Population mean for , Non- Americans Ages 20-29 = 116 mL/min/1.73 sq.m. Ages 30-39 = 107 mL/min/1.73 sq.m. Ages 40-49 = 99 mL/min/1.73 sq.m. Ages 50-59 = 93 mL/min/1.73 sq.m. Ages 60-69 = 85 mL/min/1.73 sq.m. Ages 70+ = 75 mL/min/1.73 sq.m.Chronic Kidney Disease: Less than 60 mL/min/1.73 square metersEnd Stage Renal Disease: Less than 15 mL/min/1.73 square meters Performed By: #### M DW, ADIFF, CMP, GFR, CBC, LIP, ANEU ####[address]wat [address] [place], [place] [address] .NEUABSon 10-31-2023 Neutrophil, Absolute 2.6 10 3/mcL Low 2.9-6.2 [facility] ([place]) Comment on above: Performed By: #### G FR, ANEU, MG, CMP, CBC, ADIFF ####[address] [place], [place] [address] .Urinalysis Microscopic (AO) on 10-31-2023 UA Bacteria 1+ /hpf Abnormal [facility] ([place]) Comment on above: Performed By: #### P REGU, UAMICAO, UA ####[address] [place], [place] [address] UA RBC 0-5 Abnormal None Seen [facility] ([place]) Comment on above: Performed By: #### P REGU, UAMICAO, UA ####[address] [place], [place] [address] UA Squam Epithelial 0-5 Abnormal None Seen [facility] ([place]) Comment on above: Performed By: #### P REGU, UAMICAO, UA ####[address] [place] [address] UA WBC 15-25 Abnormal None Seen [facility] ([place]) Comment on above: Performed By: #### P REGU, UAMICAO, UA ####[address] [place], [place] [address] UA WBC Cast 0-5 Abnormal [facility] ([place]) Comment on above: Performed By: #### P REGU, UAMICAO, UA ####[address] [place], [place] [address] CBCon 10-31-2023 Erythrocyte distribution width (RBC) [Ratio] 14.7 % High 11.5-14.5 [facility] ([place]) Comment on above: Performed By: #### G FR, ANEU, MG, CMP, CBC, ADIFF ####[address] [place], [place] [address] Hematocrit (Bld) [Volume fraction] 36.8 % Low 37.0-47.0 [facility] ([place]) Comment on above: Performed By: #### G FR, ANEU, MG, CMP, CBC, ADIFF ####[address] [place] [address] Hgb 12.4 G/dL Normal 12.0-16.0 [facility] ([place] Comment on above: Performed By: #### G FR, ANEU, MG, CMP, CBC, ADIFF ####[address] [place], [place] [address] MCH (RBC) [Entitic mass] 30.4 pg Normal 27.0-31.2 [facility] ([place]) Comment on above: Performed By: #### G FR, ANEU, MG, CMP, CBC, ADIFF ####[address] [place], [place] [address] MCHC 33.8 G/dL Normal 33.0-37.0 [facility] ([place]) Comment on above: Performed By: #### G FR, ANEU, MG, CMP, CBC, ADIFF ####[address] [place], [place] [address] MCV (RBC) [Entitic vol] 90.0 fL Normal 80.0-94.0 A [facility] ([place]) Comment on above: Performed By: #### G FR, ANEU, MG, CMP, CBC, ADIFF ####[address] [place], [place] [address] Platelet 144 10 3/mcL Normal 130-400 [facility] ([place]) Comment on above: Performed By: #### G FR, ANEU, MG, CMP, CBC, ADIFF ####[address] [place], [place] [address] Platelet mean volume (Bld) [Entitic vol] 8.2 fL Normal 7.4-10.4 [facility] ([place]) Comment on above: Performed By: #### G FR, ANEU, MG, CMP, CBC, ADIFF ####[address] [place], [place] [address] RBC 4.09 10 6/mcL Low 4.20-5.40 [facility] ([place]) Comment on above: Performed By: #### G FR, ANEU, MG, CMP, CBC, ADIFF ####[address] [place], [place] [address] WBC 5.9 10 3/mcL Normal 4.6-10.8 [facility] ([place]) Comment on above: Performed By: #### G FR, ANEU, MG, CMP, CBC, ADIFF ####[address] [place], [place] [address] CMPon 10-31-2023 Albumin Level 3.2 G/dL Low 3.5-5.0 [facility] ([place]) Comment on above: Performed By: #### G FR, ANEU, MG, CMP, CBC, ADIFF ####[address] [place], [place] [address] Albumin/Globulin [Mass ratio] 0.9 {ratio} Low 1.1-2.5 [facility] ([place]) Comment on above: Performed By: #### G FR, ANEU, MG, CMP, CBC, ADIFF ####[address] [place], [place] [address] ALP [Catalytic activity/Vol] 75 U/L Normal 40-135 [facility] ([place]) Comment on above: Performed By: #### G FR, ANEU, MG, CMP, CBC, ADIFF ####[address] [place], [place] [address] ALT [Catalytic activity/Vol] 80 U/L High 14-59 [facility] ([place]) Comment on above: Performed By: #### G FR, ANEU, MG, CMP, CBC, ADIFF ####[address] [place], [place] [address] AST [Catalytic activity/Vol] 34 U/L Normal 10-40 [facility] ([place]) Comment on above: Performed By: #### G FR, ANEU, MG, CMP, CBC, ADIFF ####[address] [place], [place] [address] Bili Total 0.3 mg/dL Normal 0.2-1.0 [facility] ([place]) Comment on above: Result Comment: Use of this assay is not recommended for patients undergoing treatment with eltrombopag due to the potential for falsely elevated results. Performed By: #### G FR, ANEU, MG, CMP, CBC, ADIFF ####[address] [place], [place] [address] BUN/Creatinine Ratio 14 ratio Normal 7-27 [facility] ([place]) Comment on above: Performed By: #### G FR, ANEU, MG, CMP, CBC, ADIFF ####[address] [place], [place] [address] Calcium [Mass/Vol] 8.3 mg/dL Low 8.4-10.2 [facility] ([place]) Comment on above: Performed By: #### G FR, ANEU, MG, CMP, CBC, ADIFF ####[address] [place], [place] [address] Chloride [Moles/Vol] 104 mmol/L Normal 98-107 [facility] ([place]) Comment on above: Performed By: #### G FR, ANEU, MG, CMP, CBC, ADIFF ####[address] [place], [place] [address] CO2 [Moles/Vol] 25 mmol/L Normal 22-29 [facility] ([place]) Comment on above: Performed By: #### G FR, ANEU, MG, CMP, CBC, ADIFF ####[address] [place], [place] [address] Creatinine [Mass/Vol] 0.88 mg/dL Normal 0.55-1.02 [facility] ([place]) Comment on above: Performed By: #### G FR, ANEU, MG, CMP, CBC, ADIFF ####[address] [place], [place] [address] Electrolyte Balance 9.0 mEq/L Normal 4.0-15.0 [facility] ([place]) Comment on above: Performed By: #### G FR, ANEU, MG, CMP, CBC, ADIFF ####[address] [place], [place] [address] Globulin 3.7 G/dL Normal [facility] ([place]) Comment on above: Performed By: #### G FR, ANEU, MG, CMP, CBC, ADIFF ####[address] [place], [place] [address] Glucose [Mass/Vol] 202 mg/dL High 70-105 [facility] ([place]) Comment on above: Performed By: #### G FR, ANEU, MG, CMP, CBC, ADIFF ####[address] [place], [place] [address] Potassium [Moles/Vol] 4.2 mmol/L Normal 3.5-5.1 [facility] ([place] Comment on above: Performed By: #### G FR, ANEU, MG, CMP, CBC, ADIFF ####[address] [place], [place] [address] Sodium [Moles/Vol] 138 mmol/L Normal 136-145 [facility] ([place]) Comment on above: Performed By: #### G FR, ANEU, MG, CMP, CBC, ADIFF ####[address] [place], [place] [address] Total Protein 6.9 G/dL Normal 6.4-8.2 [facility] ([place]) Comment on above: Performed By: #### G FR, ANEU, MG, CMP, CBC, ADIFF ####[address] [place], [place] [address] Urea nitrogen [Mass/Vol] 12 mg/dL Normal 7-18 [facility] ([place]) Comment on above: Performed By: #### G FR, ANEU, MG, CMP, CBC, ADIFF ####[address] [place], [place] [address] Calcium [Mass/Vol] 8.8 mg/dL Normal 8.4-10.2 [facility] ([place]) Comment on above: Performed By: #### M DW, ADIFF, CMP, GFR, CBC, LIP, ANEU ####[address] [place], [place] [address] Albumin Level 3.5 G/dL Normal 3.5-5.0 [facility] ([place]) Comment on above: Performed By: #### M DW, ADIFF, CMP, GFR, CBC, LIP, ANEU ####[address] [place], [place] [address] Albumin/Globulin [Mass ratio] 0.9 {ratio} Low 1.1-2.5 [facility] ([place]) Comment on above: Performed By: #### M DW, ADIFF, CMP, GFR, CBC, LIP, ANEU ####[address] [place], [place] [address] ALP [Catalytic activity/Vol] 94 U/L Normal 40-135 [facility] ([place]) Comment on above: Performed By: #### M DW, ADIFF, CMP, GFR, CBC, LIP, ANEU ####[address] [place], [place] [address] ALT [Catalytic activity/Vol] 90 U/L High 14-59 [facility] ([place]) Comment on above: Performed By: #### M DW, ADIFF, CMP, GFR, CBC, LIP, ANEU ####[address] [place], [place] [address] AST [Catalytic activity/Vol] 42 U/L High 10-40 [facility] ([place]) Comment on above: Performed By: #### M DW, ADIFF, CMP, GFR, CBC, LIP, ANEU ####[address] [place], [place] [address] Bili Total 0.3 mg/dL Normal 0.2-1.0 [facility] ([place]) Comment on above: Result Comment: Use of this assay is not recommended for patients undergoing treatment with eltrombopag due to the potential for falsely elevated results. Performed By: #### M DW, ADIFF, CMP, GFR, CBC, LIP, ANEU ####[address] [place], [place] [address] BUN/Creatinine Ratio 13 ratio Normal 7-27 [facility] ([place]) Comment on above: Performed By: #### M DW, ADIFF, CMP, GFR, CBC, LIP, ANEU ####[address] [place], [place] [address] Chloride [Moles/Vol] 101 mmol/L Normal 98-107 [facility] ([place]) Comment on above: Performed By: #### M DW, ADIFF, CMP, GFR, CBC, LIP, ANEU ####[address] [place], [place] [address] CO2 [Moles/Vol] 26 mmol/L Normal 22-29 [facility] ([place]) Comment on above: Performed By: #### M DW, ADIFF, CMP, GFR, CBC, LIP, ANEU ####[address] [place], [place] [address] Creatinine [Mass/Vol] 1.08 mg/dL High 0.55-1.02 [facility] ([place] Comment on above: Performed By: #### M DW, ADIFF, CMP, GFR, CBC, LIP, ANEU ####[address] [place], [place] [address] Electrolyte Balance 10.0 mEq/L Normal 4.0-15.0 [facility] ([place] Comment on above: Performed By: #### M DW, ADIFF, CMP, GFR, CBC, LIP, ANEU ####[address] [place], [place] [address] Globulin 3.9 G/dL Normal [facility] ([place]) Comment on above: Performed By: #### M DW, ADIFF, CMP, GFR, CBC, LIP, ANEU ####[address] [place], [place] [address] Glucose [Mass/Vol] 282 mg/dL High 70-105 [facility] ([place]) Comment on above: Performed By: #### M DW, ADIFF, CMP, GFR, CBC, LIP, ANEU ####[address] [place], [place] [address] Potassium [Moles/Vol] 3.9 mmol/L Normal 3.5-5.1 [facility] ([place] Comment on above: Performed By: #### M DW, ADIFF, CMP, GFR, CBC, LIP, ANEU ####[address] [place], [place] [address] Sodium [Moles/Vol] 137 mmol/L Normal 136-145 [facility] ([place]) Comment on above: Performed By: #### M DW, ADIFF, CMP, GFR, CBC, LIP, ANEU ####[address] [place], [place] [address] Total Protein 7.4 G/dL Normal 6.4-8.2 [facility] ([place]) Comment on above: Performed By: #### M DW, ADIFF, CMP, GFR, CBC, LIP, ANEU ####[address] [place], [place] [address] Urea nitrogen [Mass/Vol] 14 mg/dL Normal 7-18 [facility] ([place]) Comment on above: Performed By: #### M DW, ADIFF, CMP, GFR, CBC, LIP, ANEU ####[address] [place], [place] [address] CT ABDOMEN/PELVIS W/O CONTRA STon 10-31-2023 CT ABDOMEN/PELVIS W/O CONTRAST Normal [facility] ([place]) LABORATORYOrdered By: Maday Antonio on 10-31-2023 Blood Glucose Interventions Administered agent to decrease blood sugar (10/31/23 11:49 AM) [facility] Blood Glucose Interventions Administered agent to decrease blood sugar (10/31/23 8:04 AM) [facility] LABORATORYOrdered By: SYSTEM SYSTEM on 10-31-2023 Albumin BCP dye [Mass/Vol] 3.2 G/dL Low 3.5 - 5.0 G/dL AO ADM SS Albumin/Globulin [Mass ratio] 0.9 {ratio} Low 1.1 - 2.5 ratio AO ADM SS ALP [Catalytic activity/Vol] 75 U/L Normal 40 - 135 U/L AO ADM SS ALT With P-5'-P [Catalytic activity/Vol] 80 U/L High 14 - 59 U/L AO ADM SS AST With P-5'-P [Catalytic activity/Vol] 34 U/L Normal 10 - 40 U/L AO ADM SS Basophil, Absolute 0.1 103/mcL Normal 0.0 - 0.2 10^3/mcL AO Workflow SS Basophils/100 WBC (Bld) 0.9 % Normal 0.0 - 2.5 % AO Workflow SS Bilirubin [Mass/Vol] 0.3 mg/dL Normal 0.2 - 1 .0 mg/dL AO ADM SS Comment on above: Interpretive Data: U se of this assay is not recommended for patients undergoing treatment with eltrombopag due to the potential for falsely elevated results. Calcium [Mass/Vol] 8.3 mg/dL Low 8.4 - 10. 2 mg/dL AO ADM SS Chloride [Moles/Vol] 104 mmol/L Normal 98 - 10 7 mmol/L AO ADM SS CO2 [Moles/Vol] 25 mmol/L Normal 22 - 29 mmol/L AO ADM SS Creatinine [Mass/Vol] 0.88 mg/dL Normal 0.55 - 1.02 mg/dL AO ADM SS Electrolyte Balance 9.0 mEq/L Normal 4.0 - 15 .0 mEq/L AO ADM SS Eosinophil, Absolute 0.1 103/mcL Normal 0.0 - 0 .4 10^3/mcL AO Workflow SS Eosinophils/100 WBC (Bld) 1.1 % Normal 0.0 - 7.0 % AO Workflow SS Erythrocyte distribution width (RBC) [Ratio] 14.7 % High 11.5 - 14.5 % AO Workflow SS GFR/1.73 sq M.predicted among blacks MDRD (S/P/Bld) [Vol rate/Area] 86 ml/min/1.73sqm Invalid Interpretation Code AO Chemistry S Comment on above: Interpretive Data: GFR Population mean for , Non- Americans Ages 20-29 = 116 mL/min/1.73 sq.m. Ages 30-39 = 107 mL/min/1.73 sq.m. Ages 40-49 = 99 mL/min/1.73 sq.m. Ages 50-59 = 93 mL/min/1.73 sq.m. Ages 60-69 = 85 mL/min/1.73 sq.m. Ages 70+ = 75 mL/min/1.73 sq.m. Chronic Kidney Disease: Less than 60 mL/min/1.73 square meters End Stage Renal Disease: Less than 15 mL/min/1.73 square meters GFR/1.73 sq M.predicted among non-blacks MDRD (S/P/Bld) [Vol rate/Area] 71 ml/min/1.73sqm Invalid Interpretation Code AO Chemistry S Comment on above: Interpretive Data: GFR Population mean for , Non- Americans Ages 20-29 = 116 mL/min/1.73 sq.m. Ages 30-39 = 107 mL/min/1.73 sq.m. Ages 40-49 = 99 mL/min/1.73 sq.m. Ages 50-59 = 93 mL/min/1.73 sq.m. Ages 60-69 = 85 mL/min/1.73 sq.m. Ages 70+ = 75 mL/min/1.73 sq.m. Chronic Kidney Disease: Less than 60 mL/min/1.73 square meters End Stage Renal Disease: Less than 15 mL/min/1.73 square meters Globulin 3.7 G/dL Invalid Interpretation Code AO ADM SS Glucose [Mass/Vol] 202 mg/dL High 70 - 105 mg/dL AO ADM SS Hematocrit (Bld) [Volume fraction] 36.8 % Low 37.0 - 47.0 % AO Workflow SS Hemoglobin (Bld) [Mass/Vol] 12.4 G/dL Normal 12.0 - 16.0 G/dL AO Workflow SS Lymphocyte, Absolute 2.3 103/mcL Normal 0.8 - 3 .9 10^3/mcL AO Workflow SS Lymphocytes/100 WBC (Bld) 39.9 % Normal 10.0 - 50.0 % AO Workflow SS Magnesium [Mass/Vol] 1.6 mg/dL Low 1.8 - 2 .4 mg/dL AO ADM SS MCH (RBC) [Entitic mass] 30.4 pg Normal 27.0 - 31.2 pg AO Workflow SS MCHC 33.8 G/dL Normal 33.0 - 37.0 G/dL AO Workflow SS MCV (RBC) [Entitic vol] 90.0 fL Normal 80.0 - 94.0 fL AO Workflow SS Monocyte, Absolute 0.8 103/mcL Normal 0.2 - 1.0 10^3/mcL AO Workflow SS Monocytes/100 WBC (Bld) 14.4 % High 1.7 - 13.0 % AO Workflow SS Neutrophil, Absolute 2.6 103/mcL Low 2.9 - 6 .2 10^3/mcL AO Workflow SS Neutrophils/100 WBC (Bld) 43.7 % Normal 37.0 - 80.0 % AO Workflow SS Platelet mean volume (Bld) [Entitic vol] 8.2 fL Normal 7.4 - 10.4 fL AO Workflow SS Platelets (Bld) [#/Vol] 144 103/mcL Normal 130 - 400 10^3/mcL AO Workflow SS Potassium [Moles/Vol] 4.2 mmol/L Normal 3.5 - 5.1 mmol/L AO ADM SS Protein [Mass/Vol] 6.9 G/dL Normal 6.4 - 8.2 G/dL AO ADM SS RBC (Bld) [#/Vol] 4.09 106/mcL Low 4.20 - 5.40 10^6/mcL AO Workflow SS Sodium [Moles/Vol] 138 mmol/L Normal 136 - 145 mmol/L AO ADM SS Urea nitrogen [Mass/Vol] 12 mg/dL Normal 7 - 18 mg/dL AO ADM SS Urea nitrogen/Creatinine [Mass ratio] 14 ratio Normal 7 - 27 ratio AO ADM SS WBC (Bld) [#/Vol] 5.9 103/mcL Normal 4.6 - 10.8 10^3/mcL AO Workflow SS LIPon 10-31-2023 Lipase Level 70 U/L Normal 16-77 [facility] ([place]) Comment on above: Performed By: #### M DW, ADIFF, CMP, GFR, CBC, LIP, ANEU ####[address] [place], [place] [address] MGon 10-31-2023 Magnesium [Mass/Vol] 1.6 mg/dL Low 1.8-2.4 [facility] ([place] Comment on above: Performed By: #### G FR, ANEU, MG, CMP, CBC, ADIFF ####[address] [place], [place] [address] UAon 10-31-2023 Color (U) Yellow Normal [facility] ([place]) Comment on above: Performed By: #### P REGU, UAMICAO, UA ####[address] [place], [place] [address] Glucose (U) [Mass/Vol] mg/dL Abnormal Negative [facility] ([place]) Comment on above: Performed By: #### P REGU, UAM[place]O, UA ####[address] [place], [place] [address] Ketones Ql (U) Negative Normal Negative [facility] ([place]) Comment on above: Performed By: #### P REGU, UAMICAO, UA ####[address] [place], [place] [address] UA Appear Slightly Cloudy Abnormal Clear [facility] ([place]) Comment on above: Performed By: #### P REGU, UAMICAO, UA ####[address] [place], [place] [address] UA Blood Trace Abnormal Negative [facility] ([place]) Comment on above: Performed By: #### P REGU, UAMICAO, UA ####[address] [place] [id number] UA Leuk Est Small Abnormal Negative [facility] ([place] Comment on above: Performed By: #### P REGU, UAMICAO, UA ####[address] [place] [address] UA Nitrite Negative Normal Negative [facility] ([place] Comment on above: Performed By: #### P REGU, UAMICAO, UA ####[address] [place] [id number] UA pH 7.0 Normal 5.0 - 8.0 [facility] ([place]) Comment on above: Performed By: #### P REGU, UAMICAO, UA ####[address] [place] [id number] UA Protein 100 mg/dL Abnormal Negative [facility] ([place]) Comment on above: Performed By: #### P REGU, UAMICAO, UA ####[address] [place] [id number] UA Spec Grav 1.025 Normal 1.015-1.02 5 [facility] ([place]) Comment on above: Performed By: #### P REGU, UAMICAO, UA ####[address] [place], [place] [address] UA Specimen Type Clean Catch Normal [facility] ([place]) Comment on above: Performed By: #### P REGU, UAMICAO, UA ####[address] [place], [place] [address] UA Urobilinogen 0.2 E.U./dL Normal 0.2-1.0 [facility] ([place]) Comment on above: Performed By: #### P REGU, UAMICAO, UA ####[address] [place], [place] [address] Urobilinogen (U) [Mass/Vol] Negative Normal Negative [facility] ([place]) Comment on above: Performed By: #### P REGU, UAMICAO, UA ####[address] [place], [place] [address] .Auto Diffon 10-30-2023 Basophil, Absolute 0.0 10 3/mcL Normal 0.0-0.2 [facility] ([place] Comment on above: Performed By: #### M DW, ADIFF, CMP, GFR, CBC, LIP, ANEU ####[address] [place], [place] [address] Basophils/100 WBC (Bld) 0.7 % Normal 0.0-2.5 A [facility] ([place]) Comment on above: Performed By: #### M DW, ADIFF, CMP, GFR, CBC, LIP, ANEU ####[address] [place], [place] [address] Eosinophil, Absolute 0.1 10 3/mcL Normal 0.0-0.4 [facility] ([place]) Comment on above: Performed By: #### M DW, ADIFF, CMP, GFR, CBC, LIP, ANEU ####[address] [place], [place] [address] Eosinophils/100 WBC (Bld) 1.3 % Normal 0.0-7.0 [facility] ([place]) Comment on above: Performed By: #### M DW, ADIFF, CMP, GFR, CBC, LIP, ANEU ####[address] [place], [place] [address] Lymphocyte, Absolute 2.6 10 3/mcL Normal 0.8-3.9 [facility] ([place] Comment on above: Performed By: #### M DW, ADIFF, CMP, GFR, CBC, LIP, ANEU ####[address] [place], [place] [address] Lymphocytes/100 WBC (Bld) 39.1 % Normal 10.0-50.0 [facility] ([place]) Comment on above: Performed By: #### M DW, ADIFF, CMP, GFR, CBC, LIP, ANEU ####[address] [place], [place] [address] Monocyte, Absolute 0.7 10 3/mcL Normal 0.2-1.0 [facility] ([place] Comment on above: Performed By: #### M DW, ADIFF, CMP, GFR, CBC, LIP, ANEU ####[address] [place], [place] [address] Monocytes/100 WBC (Bld) 11.2 % Normal 1.7-13.0 [facility] ([place]) Comment on above: Performed By: #### M DW, ADIFF, CMP, GFR, CBC, LIP, ANEU ####[address] [place], [place] [address] Neutrophils/100 WBC (Bld) 47.7 % Normal 37.0-80.0 [facility] ([place]) Comment on above: Performed By: #### M DW, ADIFF, CMP, GFR, CBC, LIP, ANEU ####[address] [place], [place] [address] .MDWon 10-30-2023 Monocyte Distribution Width 22.58 High 0.00-20.00 [facility] ([place]) Comment on above: Result Comment: For adults in ED, MDW>20.0 may be associated with a higher risk of sepsis during the first 12hrs of hospital admission Performed By: #### M DW, ADIFF, CMP, GFR, CBC, LIP, ANEU ####[address] [place], [place] [address] .NEUABSon 10-30-2023 Neutrophil, Absolute 3.2 10 3/mcL Normal 2.9-6.2 [facility] ([place] Comment on above: Performed By: #### M DW, ADIFF, CMP, GFR, CBC, LIP, ANEU ####[address] [place], [place] [address] CBCon 10-30-2023 Erythrocyte distribution width (RBC) [Ratio] 14.5 % Normal 11.5-14.5 [facility] ([place]) Comment on above: Performed By: #### M DW, ADIFF, CMP, GFR, CBC, LIP, ANEU ####[address] [place] [id number] Hematocrit (Bld) [Volume fraction] 39.4 % Normal 37.0-47.0 [facility] ([place]) Comment on above: Performed By: #### M DW, ADIFF, CMP, GFR, CBC, LIP, ANEU ####[address] [place] [address] Hgb 13.5 G/dL Normal 12.0-16.0 [facility] ([place] Comment on above: Performed By: #### M DW, ADIFF, CMP, GFR, CBC, LIP, ANEU ####[address] [place] [address] MCH (RBC) [Entitic mass] 30.9 pg Normal 27.0-31.2 [facility] ([place]) Comment on above: Performed By: #### M DW, ADIFF, CMP, GFR, CBC, LIP, ANEU ####[address] [place] [address] MCHC 34.3 G/dL Normal 33.0-37.0 [facility] ([place]) Comment on above: Performed By: #### M DW, ADIFF, CMP, GFR, CBC, LIP, ANEU ####[address] [place] [id number] MCV (RBC) [Entitic vol] 90.0 fL Normal 80.0-94.0 A [facility] ([place]) Comment on above: Performed By: #### M DW, ADIFF, CMP, GFR, CBC, LIP, ANEU ####[address]wat [address] [place] [id number] Platelet 160 10 3/mcL Normal 130-400 [facility] ([place]) Comment on above: Performed By: #### M DW, ADIFF, CMP, GFR, CBC, LIP, ANEU ####[address] [place] [id number] Platelet mean volume (Bld) [Entitic vol] 7.9 fL Normal 7.4-10.4 [facility] ([place]) Comment on above: Performed By: #### M DW, ADIFF, CMP, GFR, CBC, LIP, ANEU ####[id number] [place], [place] [address] RBC 4.38 10 6/mcL Normal 4.20-5.40 [facility] ([place]) Comment on above: Performed By: #### M DW, ADIFF, CMP, GFR, CBC, LIP, ANEU ####[address] [place], [place] [address] WBC 6.6 10 3/mcL Normal 4.6-10.8 [facility] ([place]) Comment on above: Performed By: #### M DW, ADIFF, CMP, GFR, CBC, LIP, ANEU ####[id number] [place], [place] [address] LABORATORYOrdered By: Trish Murphy on 10-30-2023 Appearance (U) Slightly Cloudy *ABN* (10/30/23 11:49 PM) Invalid Interpretation Code Clear AO Auto Urine SS Bacteria LM.HPF (Urine sed) [#/Area] 1 /[HPF] Invalid Interpretation Code AO Auto Urine SS Bilirubin Ql (U) Negative (10/30/23 11:49 PM) Normal Negative AO Auto Urine SS Color (U) Yellow (10/30/23 11:49 PM) Normal AO Auto Urine SS Glucose Test strip (U) [Mass/Vol] >=1000 mg/dL Invalid Interpretation Code Negative AO Auto Urine SS HCG ( test) Ql Negative (10/30/23 11:49 PM) Normal AO Manual Urine SS Hemoglobin Auto test strip (U) [Mass/Vol] Trace *ABN* (10/30/23 11:49 PM) Invalid Interpretation Code Negative AO Auto Urine SS Ketones Ql (U) Negative Normal Negative AO Auto Ur ine SS test (u) int Not detected Invalid Interpretation Code AO Manual Urine SS UA Leuk Est Small *ABN* (10/30/23 11:49 PM) Invalid Interpretation Code Negative AO Auto Urine SS UA Nitrite Negative (10/30/23 11:49 PM) Normal Negative AO Auto Urine SS UA pH 7.0 (10/30/23 11:49 PM) Normal 5.0 - 8.0 AO Auto Urine SS UA Protein 100 mg/dL Invalid Interpretation Code Negative AO Auto Urine SS UA RBC 0-5 /HPF Invalid Interpretation Code None Seen AO Auto Urine SS UA Spec Grav 1.025 (10/30/23 11:49 PM) Normal 1.015-1.02 5 AO Auto Urine SS UA Specimen Type Clean Catch (10/30/23 11:49 PM) Normal AO Auto Urine SS UA Squam Epithelial 0-5 /HPF Invalid Interpretation Code None Seen AO Auto Urine SS UA Urobilinogen 0.2 E.U./dL Normal 0.2-1.0 AO Auto Urine SS UA WBC Cast 0-5 /LPF Invalid Interpretation Code AO Auto Urine SS WBC LM.HPF (Urine sed) [#/Area] 15-25 /HPF Invalid Interpretation Code None Seen AO Auto Urine SS LABORATORYOrdered By: SYSTEM SYSTEM on 10-30-2023 Albumin BCP dye [Mass/Vol] 3.5 G/dL Normal 3.5 - 5.0 G/dL AO ADM SS Albumin/Globulin [Mass ratio] 0.9 {ratio} Low 1.1 - 2.5 ratio AO ADM SS ALP [Catalytic activity/Vol] 94 U/L Normal 40 - 135 U/L AO ADM SS ALT With P-5'-P [Catalytic activity/Vol] 90 U/L High 14 - 59 U/L AO ADM SS AST With P-5'-P [Catalytic activity/Vol] 42 U/L High 10 - 40 U/L AO ADM SS Basophil, Absolute 0.0 103/mcL Normal 0.0 - 0.2 10^3/mcL AO Workflow SS Basophils/100 WBC (Bld) 0.7 % Normal 0.0 - 2.5 % AO Workflow SS Bilirubin [Mass/Vol] 0.3 mg/dL Normal 0.2 - 1 .0 mg/dL AO ADM SS Comment on above: Interpretive Data: U se of this assay is not recommended for patients undergoing treatment with eltrombopag due to the potential for falsely elevated results. Eosinophil, Absolute 0.1 103/mcL Normal 0.0 - 0 .4 10^3/mcL AO Workflow SS Eosinophils/100 WBC (Bld) 1.3 % Normal 0.0 - 7.0 % AO Workflow SS Erythrocyte distribution width (RBC) [Ratio] 14.5 % Normal 11.5 - 14.5 % AO Workflow SS Globulin 3.9 G/dL Invalid Interpretation Code AO ADM SS Hematocrit (Bld) [Volume fraction] 39.4 % Normal 37.0 - 47.0 % AO Workflow SS Hemoglobin (Bld) [Mass/Vol] 13.5 G/dL Normal 12.0 - 16.0 G/dL AO Workflow SS Lipase [Catalytic activity/Vol] 70 U/L Normal 16 - 77 U/L AO ADM SS Lymphocyte, Absolute 2.6 103/mcL Normal 0.8 - 3 .9 10^3/mcL AO Workflow SS Lymphocytes/100 WBC (Bld) 39.1 % Normal 10.0 - 50.0 % AO Workflow SS MCH (RBC) [Entitic mass] 30.9 pg Normal 27.0 - 31.2 pg AO Workflow SS MCHC 34.3 G/dL Normal 33.0 - 37.0 G/dL AO Workflow SS MCV (RBC) [Entitic vol] 90.0 fL Normal 80.0 - 94.0 fL AO Workflow SS Monocyte distribution width Auto (Bld) [Entitic vol] 22.58 1 High 0.00 - 20.00 AO Workflow SS Comment on above: Result Comment: For adults in ED, MDW>20.0 may be associated with a higher risk of sepsis during the first 12hrs of hospital admission Monocyte, Absolute 0.7 103/mcL Normal 0.2 - 1.0 10^3/mcL AO Workflow SS Monocytes/100 WBC (Bld) 11.2 % Normal 1.7 - 13.0 % AO Workflow SS Neutrophil, Absolute 3.2 103/mcL Normal 2.9 - 6 .2 10^3/mcL AO Workflow SS Neutrophils/100 WBC (Bld) 47.7 % Normal 37.0 - 80.0 % AO Workflow SS Platelet mean volume (Bld) [Entitic vol] 7.9 fL Normal 7.4 - 10.4 fL AO Workflow SS Platelets (Bld) [#/Vol] 160 103/mcL Normal 130 - 400 10^3/mcL AO Workflow SS Protein [Mass/Vol] 7.4 G/dL Normal 6.4 - 8.2 G/dL AO ADM SS RBC (Bld) [#/Vol] 4.38 106/mcL Normal 4.20 - 5.40 10^6/mcL AO Workflow SS WBC (Bld) [#/Vol] 6.6 103/mcL Normal 4.6 - 10.8 10^3/mcL AO Workflow SS No Panel Informationon 10-29 Culture Urine >100,000 cfu/ml Mult iple bacterial morphotypes present. Probable Contamination. Suggest recollection if clinically indicated. [facility] PREGUon 10-30-2023 HCG ( test) Ql (U) Negative Normal [facility] ([place]) Comment on above: Performed By: #### P REGU, UAMICAO, UA ####[address] [place], [place] [address] test (u) int Not detected Invalid Interpretation Code [facility] ([place]) Comment on above: Performed By: #### P REGU, UAMICAO, UA ####[address] [place], [place] [address] CBC W Auto Differential pane l (Bld)on 10-11-2023 Basophils (Bld) [#/Vol] 0.10 10*3/uL [facility] Basophils/100 WBC (Bld) 0.7 % [facility] Differential cell count method Nom (Bld) Auto [facility] Eosinophils (Bld) [#/Vol] 0.23 10*3/uL [facility] Eosinophils/100 WBC (Bld) 1.7 % [facility] Erythrocyte distribution width (RBC) [Ratio] 13.6 % 11.5 - 15.0 % [facility] Hematocrit (Bld) [Volume fraction] 43.9 % 36.0 - 46.0 % [facility] Hemoglobin (Bld) [Mass/Vol] 14.4 g/dL 11.5 - 15.5 g/dL [facility] Immature granulocytes (Bld) [#/Vol] 0.18 10*3/uL High [facility] Immature granulocytes/100 WBC (Bld) 1.3 % [facility] Interpretation and review of laboratory results Abnormal [facility] Lymphocytes (Bld) [#/Vol] 3.56 10*3/uL [facility] Lymphocytes/100 WBC (Bld) 26.5 % [facility] MCH (RBC) [Entitic mass] 30.1 pg 26.0 - 34.0 pg [facility] MCHC (RBC) [Mass/Vol] 32.8 g/dL 30.5 - 36.0 g/dL [facility] MCV (RBC) [Entitic vol] 91.8 fL 80.0 - 100.0 fL [facility] Monocytes (Bld) [#/Vol] 1.22 10*3/uL High [facility] Monocytes/100 WBC (Bld) 9.1 % [facility] Neutrophils (Bld) [#/Vol] 8.16 10*3/uL High [facility] Neutrophils/100 WBC (Bld) 60.7 % [facility] Nucleated RBC (Bld) [#/Vol] [facility] Nucleated RBC/100 WBC (Bld) [Ratio] 0.0 % /100 WBC [facility] Platelet mean volume (Bld) [Entitic vol] 11.6 fL 9.0 - 12.7 fL [facility] Platelets (Bld) [#/Vol] 261 10*3/uL [facility] RBC (Bld) [#/Vol] 4.78 10*6/uL 3.90 - 5.20 m/uL [facility] WBC (Bld) [#/Vol] 13.45 10*3/uL High [facility] Absolute lymphocyte countOrd ered By: Kevin Barcenas on 10-07-2023 Lymphocytes Auto (Unsp spec) [#/Vol] 2.95 10*3/uL 0.83-4.51 [facility] Automated lymphocyte count a s percentage of total leukocytesOrdered By: Kevin Barcenas on 10-07-2023 Lymphocytes/100 WBC Auto (Unsp spec) 26.2 % 19-41 [facility] Basophil percentageOrdered B y: Kevin Barcenas on 10-07-2023 Basophil percentage 50-100 SEEN /hpf 0-5 [facility] Basophils/100 WBC (Bld) 0.7 % 0-1 [facility] Chloride [Moles/Vol] 105 mmol/L 98-107 [facility] Eosinophils/100 WBC (Bld) 1.2 % 0-5 [facility] Glucose [Mass/Vol] 267 mg/dL 74-106 [facility] Comment on above: Glucose result great er than or equal to 200 mg/dLsuggests DIABETES MELLITUS per A.D.A. criteria. Hemoglobin (Bld) [Mass/Vol] 13.9 g/dL 12.0-15.0 [facility] Monocytes/100 WBC (Bld) 8.4 % 0-10 [facility] Neutrophils (Bld) [#/Vol] 7.0 10*3/uL 2.0-7.7 [facility] Neutrophils/100 WBC (Bld) 62.2 % 47-70 [facility] Potassium [Moles/Vol] 4.0 mmol/L 3.5-5.1 [facility] [place] Sodium [Moles/Vol] 134 mmol/L 136-145 [facility] WBC (Bld) [#/Vol] 11.3 10*3/uL 4.4-11.0 [facility] Bilirubin Test strip Ql (U)O rdered By: Kevin Barcenas on 10-07-2023 Bilirubin Ql (U) Negative Negative [facility] Determination of erythrocyte mean corpuscular volume (MCV)Ordered By: Kevin Barcenas on 10-07-2023 MCV (RBC) [Entitic vol] 89.5 fL 81-99 [facility] Erythrocyte distribution wid th ratioOrdered By: Kevin Barcenas on 10-07-2023 Erythrocyte distribution width (RBC) [Ratio] 13.5 % 11.6-14.6 [facility] Erythrocyte distribution wid th standard deviationOrdered By: Kevin Barcenas on 10-07-2023 Erythrocyte distribution width (RBC) [Entitic vol] 43.9 fL 35.1-43.9 [facility] Hematocrit Auto (Bld) [Volum e fraction]Ordered By: Kevin Barcenas on 10-07-2023 Hematocrit (Bld) [Volume fraction] 41.7 % 37-47 [facility] Immature granulocytes/100 WB C Auto (Bld)Ordered By: Kevin Barcenas on 10-07-2023 Immature granulocytes/100 WBC (Bld) 1.300 % 0.0-0.9 [facility] Comment on above: IG% - Immature Granu locytes (promyelocytes, myelocytes and metamyelocytes) > 1% indicates that a LEFT SHIFT is Present. Ketones Test strip Ql (U)Ord ered By: Kevin Barcenas on 10-07-2023 Ketones Ql (U) Negative Negative [facility] Laboratory - Chemistry and C hemistry - challengeOrdered By: Kevin Barcenas on 10-07-2023 CO2 [Moles/Vol] 23.0 mmol/L 21.0-32.0 [facility] Urea nitrogen/Creatinine [Mass ratio] 21.7 mg/mg 10-20 [facility] Laboratory - Hematology and Cell countsOrdered By: Kevin Barcenas on 10-07-2023 MCH (RBC) [Entitic mass] 29.8 pg 27.0-32.0 [facility] MCHC (RBC) [Mass/Vol] 33.3 g/dL 32-36 [facility] [place] Nucleated RBC/100 WBC (Bld) [Ratio] 0 % 0-5 [facility] Platelet mean volume (Bld) [Entitic vol] 10.4 fL 6.2-12.0 [facility] Platelets (Bld) [#/Vol] 225 10*3/uL 150-450 [facility] Mucus LM Ql (Urine sed)Order ed By: Kevin Barcenas on 10-07-2023 Mucus Ql (Urine sed) 0 SEEN /hpf [facility] [place] Nitrite Test strip Ql (U)Ord ered By: Kevin Barcenas on 10-07-2023 Nitrite Ql (U) Negative Negative [facility] No Panel InformationOrdered By: Kevin Barcenas on 10-07-2023 Urine RBC 5-10 SEEN /hpf 0-5 [facility] Estimated Creatinine Clearance Calc 96.23 ml/min [facility] Estimated GFR (MDRD) Amer 97 mL/min >60 [facility] Comment on above: GFR Calc Estimated GFR (MDRD) Non-Af Amer 80 mL/min >60 [facility] Comment on above: Non- GFR Calc Protein Test strip Ql (U)Ord ered By: Kevin Barcenas on 10-07-2023 Protein Ql (U) 100 mg/dl Negative [facility] RBC Auto (Bld) [#/Vol]Ordere d By: Kevin Barcenas on 10-07-2023 RBC (Bld) [#/Vol] 4.66 10*6/uL 4.2-5.4 [facility] Serum or plasma calcium thi urement (mass/volume)Ordered By: Kevin Barcenas on 10-07-2023 Calcium [Mass/Vol] 9.1 mg/dL 8.5-10.1 [facility] Serum or plasma choriogonado tropin detectionOrdered By: Kevin Barcenas on 10-07-2023 HCG ( test) Ql Negative [facility] Serum or plasma creatinine m easurement (mass/volume)Ordered By: Kevin Barcenas on 10-07-2023 Creatinine [Mass/Vol] 0.83 mg/dL 0.55-1.02 [facility] [place] Comment on above: The validity of the calculated GFR & GFRAA in patients over 70 years has not been determined. Clinical correlation is essential. Serum or plasma urea nitroge n measurement (mass/volume)Ordered By: Kevin Barcenas on 10-07-2023 Urea nitrogen [Mass/Vol] 18 mg/dL 7-18 [facility] Squamous epithelial cells de tection in urine sediment by light microscopyOrdered By: Kevin Barcenas on 10-07-2023 Epithelial cells.squamous LM Ql (Urine sed) 10-25 SEEN /hpf 5-10 [facility] Thin prep Papanicolaou smear with manual screeningOrdered By: Kevin Barcenas on 10-07-2023 Thin prep Papanicolaou smear with manual screening 6 5-15 [facility] Urine blood detectionOrdered By: Kevin Barcenas on 10-07-2023 RBC Ql (U) 50 /ul Negative [facility] Urine clarityOrdered By: Nigel Barcenas on 10-07-2023 Clarity (U) Cloudy Clear [facility] Urine color determinationOrd ered By: Kevin Barcenas on 10-07-2023 Color (U) Yellow Yellow [facility] Urine glucose detectionOrder ed By: Kevin Barcenas on 10-07-2023 Glucose Ql (U) 1000 mg/dl Normal [facility] Urine leukocyte esterase det ection by dipstickOrdered By: Kevin Barcenas on 10-07-2023 Leukocyte esterase Test strip Ql (U) 500 /ul Negative [facility] Urine pHOrdered By: Kevin giron on 10-07-2023 pH (U) 6.5 [pH] 5.0 - 8.0 [facility] Urine sediment bacteria coun t by microscopy (number/high power field)Ordered By: Kevin Barcenas on 10-07-2023 Bacteria LM.HPF (Urine sed) [#/Area] 4 /[HPF] None Seen [facility] Urine specific gravity measu rementOrdered By: Kevin Barcenas on 10-07-2023 Specific gravity (U) [Rel density] 1.020 1.002-1.03 0 [facility] Urine urobilinogen measureme ntOrdered By: Kevin Barcenas on 10-07-2023 Urobilinogen Ql (U) Normal mg/dl Normal [facility] [place] .Auto Diffon 09-24-2023 Basophil, Absolute 0.1 10 3/mcL Normal 0.0-0.2 [facility] ([place]) Comment on above: Performed By: #### C MP, CBC, GFR, MDW, LIP, ADIFF, ANEU ####[address] [place], [place] [address] Basophils/100 WBC (Bld) 1.0 % Normal 0.0-2.5 A [facility] ([place]) Comment on above: Performed By: #### C MP, CBC, GFR, MDW, LIP, ADIFF, ANEU ####[address] [place], [place] [address] Eosinophil, Absolute 0.2 10 3/mcL Normal 0.0-0.4 [facility] ([place]) Comment on above: Performed By: #### C MP, CBC, GFR, MDW, LIP, ADIFF, ANEU ####[address] [place], [place] [address] Eosinophils/100 WBC (Bld) 1.3 % Normal 0.0-7.0 [facility] ([place]) Comment on above: Performed By: #### C MP, CBC, GFR, MDW, LIP, ADIFF, ANEU ####[address] [place], [place] [address] Lymphocyte, Absolute 3.8 10 3/mcL Normal 0.8-3.9 [facility] ([place]) Comment on above: Performed By: #### C MP, CBC, GFR, MDW, LIP, ADIFF, ANEU ####[address] [place], [place] [address] Lymphocytes/100 WBC (Bld) 27.3 % Normal 10.0-50.0 [facility] ([place]) Comment on above: Performed By: #### C MP, CBC, GFR, MDW, LIP, ADIFF, ANEU ####[address] [place], [place] [address] Monocyte, Absolute 1.5 10 3/mcL High 0.2-1.0 [facility] ([place]) Comment on above: Performed By: #### C MP, CBC, GFR, MDW, LIP, ADIFF, ANEU ####[address] [place], [place] [address] Monocytes/100 WBC (Bld) 10.7 % Normal 1.7-13.0 A [facility] ([place]) Comment on above: Performed By: #### C MP, CBC, GFR, MDW, LIP, ADIFF, ANEU ####[address] [place], [place] [address] Neutrophils/100 WBC (Bld) 59.7 % Normal 37.0-80.0 [facility] ([place]) Comment on above: Performed By: #### C MP, CBC, GFR, MDW, LIP, ADIFF, ANEU ####[address] [place], [place] [address] .GFRon 09-24-2023 GFR 74 ml/min/1.73sqm Normal [facility] ([place]) Comment on above: Result Comment: GFR Population mean for , Non- Americans Ages 20-29 = 116 mL/min/1.73 sq.m. Ages 30-39 = 107 mL/min/1.73 sq.m. Ages 40-49 = 99 mL/min/1.73 sq.m. Ages 50-59 = 93 mL/min/1.73 sq.m. Ages 60-69 = 85 mL/min/1.73 sq.m. Ages 70+ = 75 mL/min/1.73 sq.m.Chronic Kidney Disease: Less than 60 mL/min/1.73 square metersEnd Stage Renal Disease: Less than 15 mL/min/1.73 square meters Performed By: #### C MP, CBC, GFR, MDW, LIP, ADIFF, ANEU ####[address] [place], [place] [address] GFR Non- 61 ml/min/1.73sqm Normal [facility] ([place]) Comment on above: Result Comment: GFR Population mean for , Non- Americans Ages 20-29 = 116 mL/min/1.73 sq.m. Ages 30-39 = 107 mL/min/1.73 sq.m. Ages 40-49 = 99 mL/min/1.73 sq.m. Ages 50-59 = 93 mL/min/1.73 sq.m. Ages 60-69 = 85 mL/min/1.73 sq.m. Ages 70+ = 75 mL/min/1.73 sq.m.Chronic Kidney Disease: Less than 60 mL/min/1.73 square metersEnd Stage Renal Disease: Less than 15 mL/min/1.73 square meters Performed By: #### C MP, CBC, GFR, MDW, LIP, ADIFF, ANEU ####[address] [place], [place] [address] .MDWon 09-24-2023 Monocyte Distribution Width 19.73 Normal 0.00-20.00 [facility] ([place]) Comment on above: Result Comment: For ED adult patients suspected of sepsis, MDW<=20.0 does not rule out sepsis or risk of sepsis Performed By: #### C MP, CBC, GFR, MDW, LIP, ADIFF, ANEU ####[address] [place], [place] [address] .NEUABSon 09-24-2023 Neutrophil, Absolute 8.2 10 3/mcL High 2.9-6.2 [facility] ([place]) Comment on above: Performed By: #### C MP, CBC, GFR, MDW, LIP, ADIFF, ANEU ####[address] [place], [place] [address] .Urinalysis Microscopic (AO) on 09-24-2023 UA Bacteria Trace Abnormal [facility] ([place]) Comment on above: Performed By: #### U A, UAMICAO, PREGU ####[address] [place], [place] [address] UA RBC None Seen Normal None Seen [facility] ([place]) Comment on above: Performed By: #### U A, UAMICAO, PREGU ####[address] [place], [place] [address] UA Squam Epithelial 0-5 Abnormal None Seen [facility] ([place]) Comment on above: Performed By: #### U A, UAMICAO, PREGU ####[address] [place], [place] [address] UA WBC 0-5 Abnormal None Seen [facility] ([place]) Comment on above: Performed By: #### U A, UAMICAO, PREGU ####[address] [place], [place] [address] CBCon 09-24-2023 Erythrocyte distribution width (RBC) [Ratio] 14.6 % High 11.5-14.5 [facility] ([place]) Comment on above: Performed By: #### C MP, CBC, GFR, MDW, LIP, ADIFF, ANEU ####[address] [place], [place] [address] Hematocrit (Bld) [Volume fraction] 40.0 % Normal 37.0-47.0 [facility] ([place]) Comment on above: Performed By: #### C MP, CBC, GFR, MDW, LIP, ADIFF, ANEU ####[address] [place], [place] [address] Hgb 13.7 G/dL Normal 12.0-16.0 [facility] ([place]) Comment on above: Performed By: #### C MP, CBC, GFR, MDW, LIP, ADIFF, ANEU ####[address] [place], [place] [address] MCH (RBC) [Entitic mass] 30.2 pg Normal 27.0-31.2 [facility] ([place]) Comment on above: Performed By: #### C MP, CBC, GFR, MDW, LIP, ADIFF, ANEU ####[address] [place], [place] [address] MCHC 34.1 G/dL Normal 33.0-37.0 [facility] ([place]) Comment on above: Performed By: #### C MP, CBC, GFR, MDW, LIP, ADIFF, ANEU ####[address] [place], [place] [address] MCV (RBC) [Entitic vol] 88.6 fL Normal 80.0-94.0 A [facility] ([place]) Comment on above: Performed By: #### C MP, CBC, GFR, MDW, LIP, ADIFF, ANEU ####[address] [place], [place] [address] Platelet 234 10 3/mcL Normal 130-400 [facility] ([place]) Comment on above: Performed By: #### C MP, CBC, GFR, MDW, LIP, ADIFF, ANEU ####[address] [place], [place] [address] Platelet mean volume (Bld) [Entitic vol] 8.6 fL Normal 7.4-10.4 [facility] ([place]) Comment on above: Performed By: #### C MP, CBC, GFR, MDW, LIP, ADIFF, ANEU ####[address] [place], [place] [address] RBC 4.52 10 6/mcL Normal 4.20-5.40 [facility] ([place]) Comment on above: Performed By: #### C MP, CBC, GFR, MDW, LIP, ADIFF, ANEU ####[address] [place], [place] [address] WBC 13.8 10 3/mcL High 4.6-10.8 [facility] ([place]) Comment on above: Performed By: #### C MP, CBC, GFR, MDW, LIP, ADIFF, ANEU ####[address] [place], [place] [address] CMPon 09-24-2023 Albumin Level 3.9 G/dL Normal 3.5-5.0 [facility] ([place] Comment on above: Performed By: #### C MP, CBC, GFR, MDW, LIP, ADIFF, ANEU ####[address] [place], [place] [address] Albumin/Globulin [Mass ratio] 1.0 {ratio} Low 1.1-2.5 [facility] ([place]) Comment on above: Performed By: #### C MP, CBC, GFR, MDW, LIP, ADIFF, ANEU ####[address] [place], [place] [address] ALP [Catalytic activity/Vol] 111 U/L Normal 40-135 [facility] ([place]) Comment on above: Performed By: #### C MP, CBC, GFR, MDW, LIP, ADIFF, ANEU ####[address] [place], [place] [address] ALT [Catalytic activity/Vol] 42 U/L Normal 14-59 [facility] ([place] Comment on above: Performed By: #### C MP, CBC, GFR, MDW, LIP, ADIFF, ANEU ####[address] [place], [place] [address] AST [Catalytic activity/Vol] 16 U/L Normal 10-40 [facility] ([place] Comment on above: Performed By: #### C MP, CBC, GFR, MDW, LIP, ADIFF, ANEU ####[address] [place], [place] [address] Bili Total 0.4 mg/dL Normal 0.2-1.0 [facility] ([place]) Comment on above: Result Comment: Use of this assay is not recommended for patients undergoing treatment with eltrombopag due to the potential for falsely elevated results. Performed By: #### C MP, CBC, GFR, MDW, LIP, ADIFF, ANEU ####[address] [place], [place] [address] BUN/Creatinine Ratio 14 ratio Normal 7-27 [facility] ([place]) Comment on above: Performed By: #### C MP, CBC, GFR, MDW, LIP, ADIFF, ANEU ####[address] [place], [place] [address] Calcium [Mass/Vol] 8.6 mg/dL Normal 8.4-10.2 [facility] ([place]) Comment on above: Performed By: #### C MP, CBC, GFR, MDW, LIP, ADIFF, ANEU ####[address] [place], [place] [address] Chloride [Moles/Vol] 98 mmol/L Normal 98-107 [facility] ([place]) Comment on above: Performed By: #### C MP, CBC, GFR, MDW, LIP, ADIFF, ANEU ####[address] [place], [place] [address] CO2 [Moles/Vol] 28 mmol/L Normal 22-29 [facility] ([place]) Comment on above: Performed By: #### C MP, CBC, GFR, MDW, LIP, ADIFF, ANEU ####[address] [place], [place] [address] Creatinine [Mass/Vol] 1.00 mg/dL Normal 0.55-1.02 [facility] ([place]) Comment on above: Performed By: #### C MP, CBC, GFR, MDW, LIP, ADIFF, ANEU ####[address] [place], [place] [address] Electrolyte Balance 11.0 mEq/L Normal 4.0-15.0 [facility] ([place] Comment on above: Performed By: #### C MP, CBC, GFR, MDW, LIP, ADIFF, ANEU ####[address] [place], [place] [address] Globulin 3.8 G/dL Normal [facility] ([place]) Comment on above: Performed By: #### C MP, CBC, GFR, MDW, LIP, ADIFF, ANEU ####[address] [place], [place] [address] Glucose [Mass/Vol] 288 mg/dL High 70-105 [facility] ([place]) Comment on above: Performed By: #### C MP, CBC, GFR, MDW, LIP, ADIFF, ANEU ####[address] [place], [place] [address] Potassium [Moles/Vol] 3.9 mmol/L Normal 3.5-5.1 [facility] ([place]) Comment on above: Performed By: #### C MP, CBC, GFR, MDW, LIP, ADIFF, ANEU ####[address] [place], [place] [address] Sodium [Moles/Vol] 137 mmol/L Normal 136-145 [facility] ([place]) Comment on above: Performed By: #### C MP, CBC, GFR, MDW, LIP, ADIFF, ANEU ####[address] [place], [place] [address] Total Protein 7.7 G/dL Normal 6.4-8.2 [facility] ([place]) Comment on above: Performed By: #### C MP, CBC, GFR, MDW, LIP, ADIFF, ANEU ####[address] [place], [place] [address] Urea nitrogen [Mass/Vol] 14 mg/dL Normal 7-18 [facility] ([place]) Comment on above: Performed By: #### C MP, CBC, GFR, MDW, LIP, ADIFF, ANEU ####[address] [place], [place] [address] CT ABDOMEN/PELVIS W/O CONTRA STon 09-24-2023 CT ABDOMEN/PELVIS W/O CONTRAST Normal [facility] ([place]) LABORATORYOrdered By: SYSTEM SYSTEM on 09-24-2023 Albumin BCP dye [Mass/Vol] 3.9 G/dL Normal 3.5 - 5.0 G/dL AO ADM SS Albumin/Globulin [Mass ratio] 1.0 {ratio} Low 1.1 - 2.5 ratio AO ADM SS ALP [Catalytic activity/Vol] 111 U/L Normal 40 - 135 U/L AO ADM SS ALT With P-5'-P [Catalytic activity/Vol] 42 U/L Normal 14 - 59 U/L AO ADM SS AST With P-5'-P [Catalytic activity/Vol] 16 U/L Normal 10 - 40 U/L AO ADM SS Basophil, Absolute 0.1 103/mcL Normal 0.0 - 0.2 10^3/mcL AO Workflow SS Basophils/100 WBC (Bld) 1.0 % Normal 0.0 - 2.5 % AO Workflow SS Bilirubin [Mass/Vol] 0.4 mg/dL Normal 0.2 - 1 .0 mg/dL AO ADM SS Comment on above: Interpretive Data: U se of this assay is not recommended for patients undergoing treatment with eltrombopag due to the potential for falsely elevated results. Calcium [Mass/Vol] 8.6 mg/dL Normal 8.4 - 10. 2 mg/dL AO ADM SS Chloride [Moles/Vol] 98 mmol/L Normal 98 - 10 7 mmol/L AO ADM SS CO2 [Moles/Vol] 28 mmol/L Normal 22 - 29 mmol/L AO ADM SS Creatinine [Mass/Vol] 1.00 mg/dL Normal 0.55 - 1.02 mg/dL AO ADM SS Electrolyte Balance 11.0 mEq/L Normal 4.0 - 15 .0 mEq/L AO ADM SS Eosinophil, Absolute 0.2 103/mcL Normal 0.0 - 0 .4 10^3/mcL AO Workflow SS Eosinophils/100 WBC (Bld) 1.3 % Normal 0.0 - 7.0 % AO Workflow SS Erythrocyte distribution width (RBC) [Ratio] 14.6 % High 11.5 - 14.5 % AO Workflow SS GFR/1.73 sq M.predicted among blacks MDRD (S/P/Bld) [Vol rate/Area] 74 ml/min/1.73sqm Invalid Interpretation Code AO Chemistry S Comment on above: Interpretive Data: GFR Population mean for , Non- Americans Ages 20-29 = 116 mL/min/1.73 sq.m. Ages 30-39 = 107 mL/min/1.73 sq.m. Ages 40-49 = 99 mL/min/1.73 sq.m. Ages 50-59 = 93 mL/min/1.73 sq.m. Ages 60-69 = 85 mL/min/1.73 sq.m. Ages 70+ = 75 mL/min/1.73 sq.m. Chronic Kidney Disease: Less than 60 mL/min/1.73 square meters End Stage Renal Disease: Less than 15 mL/min/1.73 square meters GFR/1.73 sq M.predicted among non-blacks MDRD (S/P/Bld) [Vol rate/Area] 61 ml/min/1.73sqm Invalid Interpretation Code AO Chemistry S Comment on above: Interpretive Data: GFR Population mean for , Non- Americans Ages 20-29 = 116 mL/min/1.73 sq.m. Ages 30-39 = 107 mL/min/1.73 sq.m. Ages 40-49 = 99 mL/min/1.73 sq.m. Ages 50-59 = 93 mL/min/1.73 sq.m. Ages 60-69 = 85 mL/min/1.73 sq.m. Ages 70+ = 75 mL/min/1.73 sq.m. Chronic Kidney Disease: Less than 60 mL/min/1.73 square meters End Stage Renal Disease: Less than 15 mL/min/1.73 square meters Globulin 3.8 G/dL Invalid Interpretation Code AO ADM SS Glucose [Mass/Vol] 288 mg/dL High 70 - 105 mg/dL AO ADM SS Hematocrit (Bld) [Volume fraction] 40.0 % Normal 37.0 - 47.0 % AO Workflow SS Hemoglobin (Bld) [Mass/Vol] 13.7 G/dL Normal 12.0 - 16.0 G/dL AO Workflow SS Lipase [Catalytic activity/Vol] 54 U/L Normal 16 - 77 U/L AO ADM SS Lymphocyte, Absolute 3.8 103/mcL Normal 0.8 - 3 .9 10^3/mcL AO Workflow SS Lymphocytes/100 WBC (Bld) 27.3 % Normal 10.0 - 50.0 % AO Workflow SS MCH (RBC) [Entitic mass] 30.2 pg Normal 27.0 - 31.2 pg AO Workflow SS MCHC 34.1 G/dL Normal 33.0 - 37.0 G/dL AO Workflow SS MCV (RBC) [Entitic vol] 88.6 fL Normal 80.0 - 94.0 fL AO Workflow SS Monocyte distribution width Auto (Bld) [Entitic vol] 19.73 1 Normal 0.00 - 20.00 AO Workflow SS Comment on above: Result Comment: For ED adult patients suspected of sepsis, MDW<=20.0 does not rule out sepsis or risk of sepsis Monocyte, Absolute 1.5 103/mcL High 0.2 - 1.0 10^3/mcL AO Workflow SS Monocytes/100 WBC (Bld) 10.7 % Normal 1.7 - 13.0 % AO Workflow SS Neutrophil, Absolute 8.2 103/mcL High 2.9 - 6 .2 10^3/mcL AO Workflow SS Neutrophils/100 WBC (Bld) 59.7 % Normal 37.0 - 80.0 % AO Workflow SS Platelet mean volume (Bld) [Entitic vol] 8.6 fL Normal 7.4 - 10.4 fL AO Workflow SS Platelets (Bld) [#/Vol] 234 103/mcL Normal 130 - 400 10^3/mcL AO Workflow SS Potassium [Moles/Vol] 3.9 mmol/L Normal 3.5 - 5.1 mmol/L AO ADM SS Protein [Mass/Vol] 7.7 G/dL Normal 6.4 - 8.2 G/dL AO ADM SS RBC (Bld) [#/Vol] 4.52 106/mcL Normal 4.20 - 5.40 10^6/mcL AO Workflow SS Sodium [Moles/Vol] 137 mmol/L Normal 136 - 145 mmol/L AO ADM SS Urea nitrogen [Mass/Vol] 14 mg/dL Normal 7 - 18 mg/dL AO ADM SS Urea nitrogen/Creatinine [Mass ratio] 14 ratio Normal 7 - 27 ratio AO ADM SS WBC (Bld) [#/Vol] 13.8 103/mcL High 4.6 - 10.8 10^3/mcL AO Workflow SS LABORATORYOrdered By: Trish Murphy on 09-24-2023 Appearance (U) Clear (09/24/23 10:43 PM) Normal Clear AO Auto Urine SS Bacteria LM.HPF (Urine sed) [#/Area] Trace /HPF Invalid Interpretation Code AO Auto Urine SS Bilirubin Ql (U) Negative (09/24/23 10:43 PM) Normal Negative AO Auto Urine SS Color (U) Light yellow Invalid Interpretation Code AO Auto Urine SS Glucose Test strip (U) [Mass/Vol] 500 mg/dL Invalid Interpretation Code Negative AO Auto Urine SS HCG ( test) Ql Negative (09/24/23 10:43 PM) Normal AO Manual Urine SS Hemoglobin Auto test strip (U) [Mass/Vol] Negative (09/24/23 10:43 PM) Normal Negative AO Auto Urine SS Ketones Ql (U) Negative Normal Negative AO Auto Ur ine SS test (u) int Not detected Invalid Interpretation Code AO Manual Urine SS UA Leuk Est Small *ABN* (09/24/23 10:43 PM) Invalid Interpretation Code Negative AO Auto Urine SS UA Nitrite Negative (09/24/23 10:43 PM) Normal Negative AO Auto Urine SS UA pH 7.0 (09/24/23 10:43 PM) Normal 5.0 - 8.0 AO Auto Urine SS UA Protein 30 mg/dL Normal Negative AO Auto Urine SS UA RBC None Seen /HPF Normal None Seen AO Auto Ur ine SS UA Spec Grav 1.010 *ABN* (09/24/23 10:43 PM) Invalid Interpretation Code 1.015-1.02 5 AO Auto Urine SS UA Specimen Type Cook Catheter (09/24/23 10:43 PM) Normal AO Auto Urine SS UA Squam Epithelial 0-5 /HPF Invalid Interpretation Code None Seen AO Auto Urine SS UA Urobilinogen 0.2 E.U./dL Normal 0.2-1.0 AO Auto Urine SS WBC LM.HPF (Urine sed) [#/Area] 0-5 /HPF Invalid Interpretation Code None Seen AO Auto Urine SS LIPon 09-24-2023 Lipase Level 54 U/L Normal 16-77 [facility] ([place]) Comment on above: Performed By: #### C MP, CBC, GFR, MDW, LIP, ADIFF, ANEU ####[address] [place], [place] [address] PREGUon 09-24-2023 HCG ( test) Ql (U) Negative Normal [facility] ([place]) Comment on above: Performed By: #### U A, UAMICTITA, PREGU ####[address] [place], [place] [address] test (u) int Not detected Invalid Interpretation Code [facility] ([place]) Comment on above: Performed By: #### U A, UAMICAO, PREGU ####[address] [place], [place] [address] UAon 09-24-2023 Color (U) Light yellow Normal [facility] ([place]) Comment on above: Performed By: #### U A, UAMICAO, PREGU ####[address] [place], [place] [address] Glucose (U) [Mass/Vol] 500 mg/dL Abnormal Negative [facility] ([place]) Comment on above: Performed By: #### U A, UAMICAO, PREGU ####[address] [place], [place] [address] Ketones Ql (U) Negative Normal Negative [facility] ([place]) Comment on above: Performed By: #### U A, UAMICAO, PREGU ####[address] [place], [place] [address] UA Appear Clear Normal Clear [facility] ([place] Comment on above: Performed By: #### U A, UAMICAO, PREGU ####[address] [place], [place] [address] UA Blood Negative Normal Negative [facility] ([place]) Comment on above: Performed By: #### U A, UAMICAO, PREGU ####[address] [place] [address] UA Leuk Est Small Abnormal Negative [facility] ([place]) Comment on above: Performed By: #### U A, UAMICAO, PREGU ####[address] [place] [address] UA Nitrite Negative Normal Negative [facility] ([place]) Comment on above: Performed By: #### U A, UAMICAO, PREGU ####[address] [place], [place] [address] UA pH 7.0 Normal 5.0 - 8.0 [facility] ([place] Comment on above: Performed By: #### U A, UAMICAO, PREGU ####[address] [place], [place] [address] UA Protein 30 mg/dL Normal Negative [facility] ([place] Comment on above: Performed By: #### U A, UAMICAO, PREGU ####[address] [place] [address] UA Spec Grav 1.010 Abnormal 1.015-1.02 5 [facility] ([place]) Comment on above: Performed By: #### U A, UAMICAO, PREGU ####[address] [place], [place] [address] UA Specimen Type Cook Catheter Normal [facility] ([place]) Comment on above: Performed By: #### U A, UAMICAO, PREGU ####[address] [place], [place] [address] UA Urobilinogen 0.2 E.U./dL Normal 0.2-1.0 [facility] ([place]) Comment on above: Performed By: #### U A, UAMICAO, PREGU ####[address] [place], [place] [address] Urobilinogen (U) [Mass/Vol] Negative Normal Negative [facility] ([place] Comment on above: Performed By: #### U A, UAMICAO, PREGU ####[address] [place], [place] [address] No Panel Informationon 08-17 Radiology Result ACTIONABLE Abnormal [facility] Absolute lymphocyte countOrd ered By: Arianna Pabon on 08-13-2023 Lymphocytes Auto (Unsp spec) [#/Vol] 3.40 10*3/uL 0.83-4.51 [facility] Automated lymphocyte count a s percentage of total leukocytesOrdered By: Arianna Pabon on 08-13-2023 Lymphocytes/100 WBC Auto (Unsp spec) 25.4 % 19-41 [facility] Basophil percentageOrdered B y: Arianna Pabon on 08-13-2023 Basophil percentage 10-25 SEEN /hpf 0-5 [facility] Basophils/100 WBC (Bld) 0.7 % 0-1 [facility] Chloride [Moles/Vol] 101 mmol/L 98-107 [facility] Eosinophils/100 WBC (Bld) 1.5 % 0-5 [facility] Glucose [Mass/Vol] 428 mg/dL 74-106 [facility] Comment on above: Glucose result great er than or equal to 200 mg/dLsuggests DIABETES MELLITUS per A.D.A. criteria. Hemoglobin (Bld) [Mass/Vol] 13.9 g/dL 12.0-15.0 [facility] Monocytes/100 WBC (Bld) 10.4 % 0-10 [facility] Neutrophils (Bld) [#/Vol] 8.2 10*3/uL 2.0-7.7 [facility] Neutrophils/100 WBC (Bld) 61.2 % 47-70 [facility] Potassium [Moles/Vol] 3.7 mmol/L 3.5-5.1 [facility] [place] Sodium [Moles/Vol] 133 mmol/L 136-145 [facility] WBC (Bld) [#/Vol] 13.4 10*3/uL 4.4-11.0 [facility] Bilirubin Test strip Ql (U)O rdered By: Arianna Pabon on 08-13-2023 Bilirubin Ql (U) Negative Negative [facility] Culture, urineOrdered By: Torrie Pabon on 08-13-2023 Bacteria identified Cx Nom (U) Morganella morganii sp morgani [facility] Bacteria identified Cx Nom (U) Pseudomonas aeruginosa [facility] Determination of erythrocyte mean corpuscular volume (MCV)Ordered By: Arianna Pabon on 08-13-2023 MCV (RBC) [Entitic vol] 87.1 fL 81-99 [facility] Erythrocyte distribution wid th ratioOrdered By: Arianna Pabon on 08-13-2023 Erythrocyte distribution width (RBC) [Ratio] 13.2 % 11.6-14.6 [facility] Erythrocyte distribution wid th standard deviationOrdered By: Arianna Pabon on 08-13-2023 Erythrocyte distribution width (RBC) [Entitic vol] 41.7 fL 35.1-43.9 [facility] Hematocrit Auto (Bld) [Volum e fraction]Ordered By: Arianna Pabon on 08-13-2023 Hematocrit (Bld) [Volume fraction] 41.7 % 37-47 [facility] Immature granulocytes/100 WB C Auto (Bld)Ordered By: Arianna Pabon on 08-13-2023 Immature granulocytes/100 WBC (Bld) 0.800 % 0.0-0.9 [facility] Comment on above: IG% - Immature Granu locytes (promyelocytes, myelocytes and metamyelocytes) > 1% indicates that a LEFT SHIFT is Present. Ketones Test strip Ql (U)Ord ered By: Arianna Pabon on 08-13-2023 Ketones Ql (U) 5 mg/dl Negative [facility] Laboratory - Chemistry and C hemistry - challengeOrdered By: Arianna Pabon on 08-13-2023 CO2 [Moles/Vol] 25.0 mmol/L 21.0-32.0 [facility] Urea nitrogen/Creatinine [Mass ratio] 13.6 mg/mg 10-20 [facility] Laboratory - Hematology and Cell countsOrdered By: Arianna Pabon on 08-13-2023 MCH (RBC) [Entitic mass] 29.0 pg 27.0-32.0 [facility] MCHC (RBC) [Mass/Vol] 33.3 g/dL 32-36 [facility] [place] Nucleated RBC/100 WBC (Bld) [Ratio] 0 % 0-5 [facility] Platelet mean volume (Bld) [Entitic vol] 11.5 fL 6.2-12.0 [facility] Platelets (Bld) [#/Vol] 229 10*3/uL 150-450 [facility] Mucus LM Ql (Urine sed)Order ed By: Arianna Pabon on 08-13-2023 Mucus Ql (Urine sed) 0 SEEN /hpf [facility] [place] Nitrite Test strip Ql (U)Ord ered By: Arianna Pabon on 08-13-2023 Nitrite Ql (U) Positive Negative [facility] No Panel InformationOrdered By: Arianna Pabon on 08-13-2023 Estimated Creatinine Clearance Calc 67.62 ml/min [facility] Estimated GFR (MDRD) Amer 65 mL/min >60 [facility] Comment on above: GFR Calc Estimated GFR (MDRD) Non-Af Amer 54 mL/min >60 [facility] Comment on above: Non- GFR Calc Urine RBC 0-5 SEEN /hpf 0-5 [facility] Protein Test strip Ql (U)Ord ered By: Arianna Pabon on 08-13-2023 Protein Ql (U) 100 mg/dl Negative [facility] RBC Auto (Bld) [#/Vol]Ordere d By: Arianna Pabon on 08-13-2023 RBC (Bld) [#/Vol] 4.79 10*6/uL 4.2-5.4 [facility] Serum or plasma calcium thi urement (mass/volume)Ordered By: Arianna Pabon on 08-13-2023 Calcium [Mass/Vol] 9.4 mg/dL 8.5-10.1 [facility] Serum or plasma creatinine m easurement (mass/volume)Ordered By: Arianna Pabon on 08-13-2023 Creatinine [Mass/Vol] 1.18 mg/dL 0.55-1.02 [facility] [place] Comment on above: The validity of the calculated GFR & GFRAA in patients over 70 years has not been determined. Clinical correlation is essential. Serum or plasma urea nitroge n measurement (mass/volume)Ordered By: Arianna Pabon on 08-13-2023 Urea nitrogen [Mass/Vol] 16 mg/dL 7-18 [facility] Squamous epithelial cells de tection in urine sediment by light microscopyOrdered By: Arianna Pabon on 08-13-2023 Epithelial cells.squamous LM Ql (Urine sed) 0-5 SEEN /hpf 5-10 [facility] Thin prep Papanicolaou smear with manual screeningOrdered By: Xavier Sanderson on 08-13-2023 Thin prep Papanicolaou smear with manual screening 330 mg/dL 74-106 [facility] Comment on above: MANAGEMENT OF PATIEN T CARE PER NURSING PROTOCOL Thin prep Papanicolaou smear with manual screeningOrdered By: Arianna Pabon on 08-13-2023 Thin prep Papanicolaou smear with manual screening 7 5-15 [facility] Urine blood detectionOrdered By: Arianna Pabon on 08-13-2023 RBC Ql (U) 25 /ul Negative [facility] Urine clarityOrdered By: Alison Pabon on 08-13-2023 Clarity (U) Sl. Cloudy Clear [facility] Urine color determinationOrd ered By: Arianna Pabon on 08-13-2023 Color (U) Yellow Yellow [facility] Urine glucose detectionOrder ed By: Arianna Pabon on 08-13-2023 Glucose Ql (U) 1000 mg/dl Normal [facility] Urine leukocyte esterase det ection by dipstickOrdered By: Arianna Pabon on 08-13-2023 Leukocyte esterase Test strip Ql (U) 500 /ul Negative [facility] Urine pHOrdered By: Arianna mccartney on 08-13-2023 pH (U) 7.0 [pH] 5.0 - 8.0 [facility] Urine sediment bacteria coun t by microscopy (number/high power field)Ordered By: Arianna Pabon on 08-13-2023 Bacteria LM.HPF (Urine sed) [#/Area] 3 /[HPF] None Seen [facility] Urine specific gravity measu rementOrdered By: Arianna Pabon on 08-13-2023 Specific gravity (U) [Rel density] 1.010 1.002-1.03 0 [facility] Urine urobilinogen measureme ntOrdered By: Arianna Pabon on 08-13-2023 Urobilinogen Ql (U) 1 mg/dl Normal [facility] .Auto Diffon 07-20-2023 Basophil, Absolute 0.1 10 3/mcL Normal 0.0-0.2 [facility] ([place]) Comment on above: Performed By: #### A CHRIS, GFR, ADIFF, LUCY, KALEB, CBC ####[address] [place], [place] [address] Basophils/100 WBC (Bld) 0.7 % Normal 0.0-2.5 A [facility] ([place]) Comment on above: Performed By: #### A CHRIS, GFR, ADIFF, LUCY, KALEB, CBC ####[address] [place], [place] [address] Eosinophil, Absolute 0.2 10 3/mcL Normal 0.0-0.4 [facility] ([place]) Comment on above: Performed By: #### A CHRIS, GFR, ADIFF, LUCY, KALEB, CBC ####[address] [place], [place] [address] Eosinophils/100 WBC (Bld) 1.5 % Normal 0.0-7.0 [facility] ([place]) Comment on above: Performed By: #### A CHRIS, GFR, ADIFF, LUCY, KALEB, CBC ####[address] [place], [place] [address] Lymphocyte, Absolute 2.7 10 3/mcL Normal 0.8-3.9 [facility] ([place]) Comment on above: Performed By: #### A CHRIS, GFR, ADIFF, BMP, KALEB, CBC ####[address] [place], [place] [address] Lymphocytes/100 WBC (Bld) 24.2 % Normal 10.0-50.0 [facility] ([place]) Comment on above: Performed By: #### A CHRIS, GFR, ADIFFLUCY MDW, CBC ####[address] [place], [place] [address] Monocyte, Absolute 1.2 10 3/mcL High 0.2-1.0 [facility] ([place]) Comment on above: Performed By: #### A CHRIS, GFR, ADIFF, KALEB AYALA, CBC ####[address] [place], [place] [address] Monocytes/100 WBC (Bld) 10.7 % Normal 1.7-13.0 A [facility] ([place]) Comment on above: Performed By: #### A CHRIS, GFR, ADIFFLUCY MDW, CBC ####[address] [place], [place] [address] Neutrophils/100 WBC (Bld) 62.9 % Normal 37.0-80.0 [facility] ([place]) Comment on above: Performed By: #### A CHRIS, GFR, ADLUCY RESTREPO MDW, CBC ####[address] [place], [place] [address] .GFRon 07-20-2023 GFR Non- 50 ml/min/1.73sqm Normal [facility] ([place]) Comment on above: Result Comment: GFR Population mean for , Non- Americans Ages 20-29 = 116 mL/min/1.73 sq.m. Ages 30-39 = 107 mL/min/1.73 sq.m. Ages 40-49 = 99 mL/min/1.73 sq.m. Ages 50-59 = 93 mL/min/1.73 sq.m. Ages 60-69 = 85 mL/min/1.73 sq.m. Ages 70+ = 75 mL/min/1.73 sq.m.Chronic Kidney Disease: Less than 60 mL/min/1.73 square metersEnd Stage Renal Disease: Less than 15 mL/min/1.73 square meters Performed By: #### A CHRIS, GFR, ADIFF, LUCY, KALEB, CBC ####[address] [place], [place] [address] GFR 60 ml/min/1.73sqm Normal [facility] ([place]) Comment on above: Result Comment: GFR Population mean for , Non- Americans Ages 20-29 = 116 mL/min/1.73 sq.m. Ages 30-39 = 107 mL/min/1.73 sq.m. Ages 40-49 = 99 mL/min/1.73 sq.m. Ages 50-59 = 93 mL/min/1.73 sq.m. Ages 60-69 = 85 mL/min/1.73 sq.m. Ages 70+ = 75 mL/min/1.73 sq.m.Chronic Kidney Disease: Less than 60 mL/min/1.73 square metersEnd Stage Renal Disease: Less than 15 mL/min/1.73 square meters Performed By: #### A CHRIS, GFR, ADIFF, LUCY, KALEB, CBC ####[address] [place], [place] [address] .MDWon 07-20-2023 Monocyte Distribution Width 18.28 Normal 0.00-20.00 [facility] ([place]) Comment on above: Result Comment: For ED adult patients suspected of sepsis, MDW<=20.0 does not rule out sepsis or risk of sepsis Performed By: #### A CHRIS, GFR, ADIFF, KALEB AYALA, CBC ####[address] [place], [place] [address] .NEUABSon 07-20-2023 Neutrophil, Absolute 7.1 10 3/mcL High 2.9-6.2 [facility] ([place]) Comment on above: Performed By: #### A CHRIS, GFR, ADIFF, KALEB AYALA, CBC ####[address] [place], [place] [address] .Urinalysis Microscopic (AO) on 07-20-2023 UA Amorphus 1+ /hpf Normal [facility] ([place]) Comment on above: Performed By: #### U AMICAO, UA ####[address] [place], [place] [address] UA Bacteria 1+ /hpf Abnormal [facility] ([place]) Comment on above: Performed By: #### U AMICAO, UA ####[address] [place], [place] [address] UA RBC None Seen Normal None Seen [facility] ([place]) Comment on above: Performed By: #### U AMICAO, UA ####[address] [place], [place] [address] UA Squam Epithelial 0-5 Abnormal None Seen [facility] ([place]) Comment on above: Performed By: #### U AMICAO, UA ####[address] [place], [place] [address] UA WBC 0-5 Abnormal None Seen [facility] ([place]) Comment on above: Performed By: #### U OMARI UA ####[address] [place], [place] [address] BMPon 07-20-2023 BUN/Creatinine Ratio 13 ratio Normal 7-27 [facility] ([place]) Comment on above: Performed By: #### A CHRIS, GFR, ADLUCY RESTREPO MDW, CBC ####[address] [place], [place] [address] Calcium [Mass/Vol] 8.9 mg/dL Normal 8.4-10.2 [facility] ([place]) Comment on above: Performed By: #### A CHRIS, GFR, ADLUCY RESTREPO MDW, CBC ####[address] [place], [place] [address] Chloride [Moles/Vol] 97 mmol/L Low 98-107 [facility] ([place]) Comment on above: Performed By: #### A CHRIS, GFR, ADLUCY RESTREPO MDW, CBC ####[address] [place], [place] [address] CO2 [Moles/Vol] 23 mmol/L Normal 22-29 [facility] ([place]) Comment on above: Performed By: #### A CHRIS, GFR, ADLUCY RESTREPO MDW, CBC ####[address] [place], [place] [address] Creatinine [Mass/Vol] 1.20 mg/dL High 0.55-1.02 [facility] ([place]) Comment on above: Performed By: #### A CHRIS, GFR, ADLUCY RESTREPO MDW, CBC ####[address] [place], [place] [address] Electrolyte Balance 12.0 mEq/L Normal 4.0-15.0 [facility] ([place]) Comment on above: Performed By: #### A CHRIS, GFR, ADLUCY RESTREPO MDW, CBC ####[address] [place], [place] [address] Glucose [Mass/Vol] 339 mg/dL High 70-105 [facility] ([place]) Comment on above: Performed By: #### A CHIRS, GFR, LUCY PENA MDW, CBC ####[address] [place], [place] [address] Potassium [Moles/Vol] 4.3 mmol/L Normal 3.5-5.1 [facility] ([place]) Comment on above: Performed By: #### A CHRIS, GFR, LUCY PENA MDW, CBC ####[address] [place], [place] [address] Sodium [Moles/Vol] 132 mmol/L Low 136-145 [facility] ([place]) Comment on above: Performed By: #### A CHRIS, GFR, ADLUCY RESTREPO MDW, CBC ####[address] [place], [place] [address] Urea nitrogen [Mass/Vol] 16 mg/dL Normal 7-18 [facility] ([place]) Comment on above: Performed By: #### A CHRIS, GFR, ADLUCY RESTREPO MDW, CBC ####[address] [place], [place] [address] CBCon 07-20-2023 Erythrocyte distribution width (RBC) [Ratio] 14.2 % Normal 11.5-14.5 [facility] ([place]) Comment on above: Performed By: #### A CHRIS, GFR, ADIFF, BMP, MDW, CBC ####[address] [place], [place] [address] Hematocrit (Bld) [Volume fraction] 39.9 % Normal 37.0-47.0 [facility] ([place]) Comment on above: Performed By: #### A CHRIS, GFR, ADIFF, BMP, MDW, CBC ####[address] [place], [place] [address] Hgb 13.6 G/dL Normal 12.0-16.0 [facility] ([place]) Comment on above: Performed By: #### A CHRIS, GFR, ADIFF, BMP, MDW, CBC ####[address] [place], [place] [address] MCH (RBC) [Entitic mass] 29.6 pg Normal 27.0-31.2 [facility] ([place]) Comment on above: Performed By: #### A CHRIS, GFR, ADIFF, BMP, MDW, CBC ####[address] [place], [place] [address] MCHC 34.1 G/dL Normal 33.0-37.0 [facility] ([place]) Comment on above: Performed By: #### A CHRIS, GFR, ADIFF, BMP, MDW, CBC ####[address] [place], [place] [address] MCV (RBC) [Entitic vol] 86.9 fL Normal 80.0-94.0 A [facility] ([place]) Comment on above: Performed By: #### A CHRIS, GFR, ADIFF, BMP, MDW, CBC ####[address] [place], [place] [address] Platelet 204 10 3/mcL Normal 130-400 [facility] ([place]) Comment on above: Performed By: #### A CHRIS, GFR, ADIFF, BMP, MDW, CBC ####[address] [place], [place] [address] Platelet mean volume (Bld) [Entitic vol] 8.3 fL Normal 7.4-10.4 [facility] ([place]) Comment on above: Performed By: #### A CHRIS, GFR, ADIFF, LUCY, W, CBC ####[address] [place], [place] [address] RBC 4.59 10 6/mcL Normal 4.20-5.40 [facility] ([place]) Comment on above: Performed By: #### A CHRIS, GFR, ADLAURO, LUCY, W, CBC ####[address] [place], [place] [address] WBC 11.3 10 3/mcL High 4.6-10.8 [facility] ([place]) Comment on above: Performed By: #### A CHRIS, GFR, ADLAURO, LUCY, KALEB, CBC ####[address] [place], [place] [address] CT ABDOMEN/PELVIS W/O CONTRA STon 07-20-2023 CT ABDOMEN/PELVIS W/O CONTRAST Normal [facility] ([place]) LABORATORYOrdered By: Rebecca Farrell on 07-20-2023 Appearance (U) Slightly Cloudy *ABN* (07/20/23 12:24 AM) Invalid Interpretation Code Clear AO Auto Urine SS Bacteria LM.HPF (Urine sed) [#/Area] 1 /[HPF] Invalid Interpretation Code AO Auto Urine SS Bilirubin Ql (U) Negative (07/20/23 12:24 AM) Normal Negative AO Auto Urine SS Color (U) Yellow (07/20/23 12:24 AM) Normal AO Auto Urine SS Crystals.amorphous LM.HPF (Urine sed) [#/Area] 1 /[HPF] Normal AO Auto Urine SS Glucose Test strip (U) [Mass/Vol] 500 mg/dL Invalid Interpretation Code Negative AO Auto Urine SS Hemoglobin Auto test strip (U) [Mass/Vol] Trace *ABN* (07/20/23 12:24 AM) Invalid Interpretation Code Negative AO Auto Urine SS Ketones Ql (U) Negative Normal Negative AO Auto Ur ine SS UA Leuk Est Small *ABN* (07/20/23 12:24 AM) Invalid Interpretation Code Negative AO Auto Urine SS UA Nitrite Positive *ABN* (07/20/23 12:24 AM) Invalid Interpretation Code Negative AO Auto Urine SS UA pH 7.5 (07/20/23 12:24 AM) Normal 5.0 - 8.0 AO Auto Urine SS UA Protein 30 mg/dL Normal Negative AO Auto Urine SS UA RBC None Seen /HPF Normal None Seen AO Auto Ur ine SS UA Spec Grav 1.020 (07/20/23 12:24 AM) Normal 1.015-1.02 5 AO Auto Urine SS UA Specimen Type Cook Catheter (07/20/23 12:24 AM) Normal AO Auto Urine SS UA Squam Epithelial 0-5 /HPF Invalid Interpretation Code None Seen AO Auto Urine SS UA Urobilinogen 0.2 E.U./dL Normal 0.2-1.0 AO Auto Urine SS WBC LM.HPF (Urine sed) [#/Area] 0-5 /HPF Invalid Interpretation Code None Seen AO Auto Urine SS LABORATORYOrdered By: SYSTEM SYSTEM on 07-20-2023 Basophil, Absolute 0.1 103/mcL Normal 0.0 - 0.2 10^3/mcL AO Workflow SS Basophils/100 WBC (Bld) 0.7 % Normal 0.0 - 2.5 % AO Workflow SS Calcium [Mass/Vol] 8.9 mg/dL Normal 8.4 - 10. 2 mg/dL AO ADM SS Chloride [Moles/Vol] 97 mmol/L Low 98 - 10 7 mmol/L AO ADM SS CO2 [Moles/Vol] 23 mmol/L Normal 22 - 29 mmol/L AO ADM SS Creatinine [Mass/Vol] 1.20 mg/dL High 0.55 - 1.02 mg/dL AO ADM SS Electrolyte Balance 12.0 mEq/L Normal 4.0 - 15 .0 mEq/L AO ADM SS Eosinophil, Absolute 0.2 103/mcL Normal 0.0 - 0 .4 10^3/mcL AO Workflow SS Eosinophils/100 WBC (Bld) 1.5 % Normal 0.0 - 7.0 % AO Workflow SS Erythrocyte distribution width (RBC) [Ratio] 14.2 % Normal 11.5 - 14.5 % AO Workflow SS GFR/1.73 sq M.predicted among blacks MDRD (S/P/Bld) [Vol rate/Area] 60 ml/min/1.73sqm Invalid Interpretation Code AO Chemistry S Comment on above: Interpretive Data: GFR Population mean for , Non- Americans Ages 20-29 = 116 mL/min/1.73 sq.m. Ages 30-39 = 107 mL/min/1.73 sq.m. Ages 40-49 = 99 mL/min/1.73 sq.m. Ages 50-59 = 93 mL/min/1.73 sq.m. Ages 60-69 = 85 mL/min/1.73 sq.m. Ages 70+ = 75 mL/min/1.73 sq.m. Chronic Kidney Disease: Less than 60 mL/min/1.73 square meters End Stage Renal Disease: Less than 15 mL/min/1.73 square meters GFR/1.73 sq M.predicted among non-blacks MDRD (S/P/Bld) [Vol rate/Area] 50 ml/min/1.73sqm Invalid Interpretation Code AO Chemistry S Comment on above: Interpretive Data: GFR Population mean for , Non- Americans Ages 20-29 = 116 mL/min/1.73 sq.m. Ages 30-39 = 107 mL/min/1.73 sq.m. Ages 40-49 = 99 mL/min/1.73 sq.m. Ages 50-59 = 93 mL/min/1.73 sq.m. Ages 60-69 = 85 mL/min/1.73 sq.m. Ages 70+ = 75 mL/min/1.73 sq.m. Chronic Kidney Disease: Less than 60 mL/min/1.73 square meters End Stage Renal Disease: Less than 15 mL/min/1.73 square meters Glucose [Mass/Vol] 339 mg/dL High 70 - 105 mg/dL AO ADM SS Hematocrit (Bld) [Volume fraction] 39.9 % Normal 37.0 - 47.0 % AO Workflow SS Hemoglobin (Bld) [Mass/Vol] 13.6 G/dL Normal 12.0 - 16.0 G/dL AO Workflow SS Lymphocyte, Absolute 2.7 103/mcL Normal 0.8 - 3 .9 10^3/mcL AO Workflow SS Lymphocytes/100 WBC (Bld) 24.2 % Normal 10.0 - 50.0 % AO Workflow SS MCH (RBC) [Entitic mass] 29.6 pg Normal 27.0 - 31.2 pg AO Workflow SS MCHC 34.1 G/dL Normal 33.0 - 37.0 G/dL AO Workflow SS MCV (RBC) [Entitic vol] 86.9 fL Normal 80.0 - 94.0 fL AO Workflow SS Monocyte distribution width Auto (Bld) [Entitic vol] 18.28 1 Normal 0.00 - 20.00 AO Workflow SS Comment on above: Result Comment: For ED adult patients suspected of sepsis, MDW<=20.0 does not rule out sepsis or risk of sepsis Monocyte, Absolute 1.2 103/mcL High 0.2 - 1.0 10^3/mcL AO Workflow SS Monocytes/100 WBC (Bld) 10.7 % Normal 1.7 - 13.0 % AO Workflow SS Neutrophil, Absolute 7.1 103/mcL High 2.9 - 6 .2 10^3/mcL AO Workflow SS Neutrophils/100 WBC (Bld) 62.9 % Normal 37.0 - 80.0 % AO Workflow SS Platelet mean volume (Bld) [Entitic vol] 8.3 fL Normal 7.4 - 10.4 fL AO Workflow SS Platelets (Bld) [#/Vol] 204 103/mcL Normal 130 - 400 10^3/mcL AO Workflow SS Potassium [Moles/Vol] 4.3 mmol/L Normal 3.5 - 5.1 mmol/L AO ADM SS RBC (Bld) [#/Vol] 4.59 106/mcL Normal 4.20 - 5.40 10^6/mcL AO Workflow SS Sodium [Moles/Vol] 132 mmol/L Low 136 - 145 mmol/L AO ADM SS Urea nitrogen [Mass/Vol] 16 mg/dL Normal 7 - 18 mg/dL AO ADM SS Urea nitrogen/Creatinine [Mass ratio] 13 ratio Normal 7 - 27 ratio AO ADM SS WBC (Bld) [#/Vol] 11.3 103/mcL High 4.6 - 10.8 10^3/mcL AO Workflow SS UAon 07-20-2023 Color (U) Yellow Normal [facility] ([place]) Comment on above: Performed By: #### U ALESSANDRA SALCIDO ####[address] [place], [place] [address] Glucose (U) [Mass/Vol] 500 mg/dL Abnormal Negative [facility] ([place]) Comment on above: Performed By: #### U ALESSANDRA SALCIDO ####[address] [place], [place] [address] Ketones Ql (U) Negative Normal Negative [facility] ([place]) Comment on above: Performed By: #### U AMICAO, UA ####[address] [place], [place] [address] UA Appear Slightly Cloudy Abnormal Clear [facility] ([place]) Comment on above: Performed By: #### U AMICAO, UA ####[address] [place], [place] [address] UA Blood Trace Abnormal Negative [facility] ([place]) Comment on above: Performed By: #### U AMICAO, UA ####[address] [place], [place] [address] UA Leuk Est Small Abnormal Negative [facility] ([place]) Comment on above: Performed By: #### U AMICAO, UA ####[address] [place], [place] [address] UA Nitrite Positive Abnormal Negative [facility] ([place]) Comment on above: Performed By: #### U AMICAO, UA ####[address] [place], [place] [address] UA pH 7.5 Normal 5.0 - 8.0 [facility] ([place]) Comment on above: Performed By: #### U AMICAO, UA ####[address] [place], [place] [address] UA Protein 30 mg/dL Normal Negative [facility] ([place]) Comment on above: Performed By: #### U AMICAO, UA ####[address] [place], [place] [address] UA Spec Grav 1.020 Normal 1.015-1.02 5 [facility] ([place]) Comment on above: Performed By: #### U AMICAO, UA ####[address] [place], [place] [address] UA Specimen Type Cook Catheter Normal [facility] ([place]) Comment on above: Performed By: #### U AMICAO, UA ####[address] [place], [place] [address] UA Urobilinogen 0.2 E.U./dL Normal 0.2-1.0 [facility] ([place]) Comment on above: Performed By: #### U OMARI UA ####[address] [place], [place] [address] Urobilinogen (U) [Mass/Vol] Negative Normal Negative [facility] ([place]) Comment on above: Performed By: #### U OMARI UA ####[address] [place], [place] [address] CURon 07-17-2023 CUR Normal [facility] ([place]) .Auto Diffon 07-15-2023 Basophil, Absolute 0.1 10 3/mcL Normal 0.0-0.2 [facility] ([place]) Comment on above: Performed By: #### A BECKY PEREZ MDW, GFR, CBC, BMP ####[address] [place], [place] [address] Basophils/100 WBC (Bld) 0.7 % Normal 0.0-2.5 A [facility] ([place]) Comment on above: Performed By: #### A BECKY PEREZ MDW, GFR, CBC, BMP ####[address] [place], [place] [address] Eosinophil, Absolute 0.2 10 3/mcL Normal 0.0-0.4 [facility] ([place]) Comment on above: Performed By: #### A BECKY PEREZ MDW, GFR, CBC, BMP ####[address] [place], [place] [address] Eosinophils/100 WBC (Bld) 1.6 % Normal 0.0-7.0 [facility] ([place]) Comment on above: Performed By: #### A BECKY PEREZ MDW, GFR, CBC, BMP ####[address] [place], [place] [address] Lymphocyte, Absolute 2.5 10 3/mcL Normal 0.8-3.9 [facility] ([place]) Comment on above: Performed By: #### A BECKY PEREZ MDW, GFR, CBC, BMP ####[address] [place], [place] [address] Lymphocytes/100 WBC (Bld) 22.3 % Normal 10.0-50.0 [facility] ([place]) Comment on above: Performed By: #### A BECKY PEREZ MDW, GFR, CBC, BMP ####[address] [place], [place] [address] Monocyte, Absolute 1.1 10 3/mcL High 0.2-1.0 [facility] ([place]) Comment on above: Performed By: #### A BECKY PEREZ MDW, GFR, CBC, BMP ####[address] [place], [place] [address] Monocytes/100 WBC (Bld) 10.2 % Normal 1.7-13.0 [facility] ([place]) Comment on above: Performed By: #### A BECKY PEREZ MDW, GFR, CBC, BMP ####[address] [place], [place] [address] Neutrophils/100 WBC (Bld) 65.2 % Normal 37.0-80.0 [facility] ([place]) Comment on above: Performed By: #### A BECKY PEREZ MDW, GFR, CBC, BMP ####[address] [place], [place] [address] .GFRon 07-15-2023 GFR 75 ml/min/1.73sqm Normal [facility] ([place]) Comment on above: Result Comment: GFR Population mean for , Non- Americans Ages 20-29 = 116 mL/min/1.73 sq.m. Ages 30-39 = 107 mL/min/1.73 sq.m. Ages 40-49 = 99 mL/min/1.73 sq.m. Ages 50-59 = 93 mL/min/1.73 sq.m. Ages 60-69 = 85 mL/min/1.73 sq.m. Ages 70+ = 75 mL/min/1.73 sq.m.Chronic Kidney Disease: Less than 60 mL/min/1.73 square metersEnd Stage Renal Disease: Less than 15 mL/min/1.73 square meters Performed By: #### A BECKY PEREZ MDW, GFR, CBC, BMP ####[address] [place], [place] [address] GFR Non- 62 ml/min/1.73sqm Normal [facility] ([place]) Comment on above: Result Comment: GFR Population mean for , Non- Americans Ages 20-29 = 116 mL/min/1.73 sq.m. Ages 30-39 = 107 mL/min/1.73 sq.m. Ages 40-49 = 99 mL/min/1.73 sq.m. Ages 50-59 = 93 mL/min/1.73 sq.m. Ages 60-69 = 85 mL/min/1.73 sq.m. Ages 70+ = 75 mL/min/1.73 sq.m.Chronic Kidney Disease: Less than 60 mL/min/1.73 square metersEnd Stage Renal Disease: Less than 15 mL/min/1.73 square meters Performed By: #### A BECKY PEREZ MDW, GFR, CBC, BMP ####[address] [place], [place] [address] .MDWon 07-15-2023 Monocyte Distribution Width 18.25 Normal 0.00-20.00 [facility] ([place]) Comment on above: Result Comment: For ED adult patients suspected of sepsis, MDW<=20.0 does not rule out sepsis or risk of sepsis Performed By: #### A BECKY PEREZ MDW, GFR, CBC, BMP ####[address] [place], [place] [address] .NEUABSon 07-15-2023 Neutrophil, Absolute 7.3 10 3/mcL High 2.9-6.2 [facility] ([place]) Comment on above: Performed By: #### A BECKY PEREZ MDW, GFR, CBC, BMP ####[address] [place], [place] [address] .Urinalysis Microscopic (AO) on 07-15-2023 UA Amorphus 3+ /hpf Normal [facility] ([place]) Comment on above: Performed By: #### P REGU, UAMICAO, UA ####[address] [place], [place] [address] UA Bacteria 2+ /hpf Abnormal [facility] ([place]) Comment on above: Performed By: #### P REGU, UAMICAO, UA ####[address] [place], [place] [address] UA RBC 0-5 Abnormal None Seen [facility] ([place]) Comment on above: Performed By: #### P REGU, UAMICAO, UA ####[address] [place], [place] [address] UA Squam Epithelial 10-15 Abnormal None Seen [facility] ([place]) Comment on above: Performed By: #### P REGU, UAMICAO, UA ####[address] [place], [place] [address] UA WBC 10-15 Abnormal None Seen [facility] ([place]) Comment on above: Performed By: #### P REGU, UAMICAO, UA ####[address] [place], [place] [address] BMPon 07-15-2023 BUN/Creatinine Ratio 14 ratio Normal 7-27 [facility] ([place]) Comment on above: Performed By: #### A BECKY PEREZ MDW, GFR, CBC, BMP ####[address] [place], [place] [address] Calcium [Mass/Vol] 9.5 mg/dL Normal 8.4-10.2 [facility] ([place]) Comment on above: Performed By: #### A BECKY PEREZ MDW, GFR, CBC, BMP ####[address] [place], [place] [address] Chloride [Moles/Vol] 101 mmol/L Normal 98-107 [facility] ([place]) Comment on above: Performed By: #### A BECKY PEREZ MDW, GFR, CBC, BMP ####[address] [place], [place] [address] CO2 [Moles/Vol] 26 mmol/L Normal 22-29 [facility] ([place]) Comment on above: Performed By: #### A BECKY PEREZ MDW, GFR, CBC, BMP ####[address] [place], [place] [address] Creatinine [Mass/Vol] 0.99 mg/dL Normal 0.55-1.02 [facility] ([place]) Comment on above: Performed By: #### A BECKY PEREZ MDW, GFR, CBC, BMP ####[address] [place], [place] [address] Electrolyte Balance 8.0 mEq/L Normal 4.0-15.0 [facility] ([place]) Comment on above: Performed By: #### A BECKY PEREZ MDW, GFR, CBC, BMP ####[address] [place], [place] [address] Glucose [Mass/Vol] 343 mg/dL High 70-105 [facility] ([place]) Comment on above: Performed By: #### A BECKY PEREZ MDW, GFR, CBC, BMP ####[address] [place], [place] [address] Potassium [Moles/Vol] 4.1 mmol/L Normal 3.5-5.1 [facility] ([place]) Comment on above: Performed By: #### A BECKY PEREZ MDW, GFR, CBC, BMP ####[address] [place], [place] [address] Sodium [Moles/Vol] 135 mmol/L Low 136-145 [facility] ([place]) Comment on above: Performed By: #### A BECKY PEREZ MDW, GFR, CBC, BMP ####[address] [place], [place] [address] Urea nitrogen [Mass/Vol] 14 mg/dL Normal 7-18 [facility] ([place]) Comment on above: Performed By: #### A BECKY PEREZ MDW, GFR, CBC, BMP ####[address] [place], [place] [address] CBCon 07-15-2023 Erythrocyte distribution width (RBC) [Ratio] 14.2 % Normal 11.5-14.5 [facility] ([place]) Comment on above: Performed By: #### A BECKY PEREZ MDW, GFR, CBC, BMP ####[address] [place], [place] [address] Hematocrit (Bld) [Volume fraction] 40.7 % Normal 37.0-47.0 [facility] ([place]) Comment on above: Performed By: #### A BECKY PEREZ MDW, GFR, CBC, BMP ####[address] [place], [place] [address] Hgb 13.6 G/dL Normal 12.0-16.0 [facility] ([place]) Comment on above: Performed By: #### A BECKY PREEZ MDW, GFR, CBC, BMP ####[address] [place], [place] [address] MCH (RBC) [Entitic mass] 29.4 pg Normal 27.0-31.2 [facility] ([place]) Comment on above: Performed By: #### A BECKY PEREZ MDW, GFR, CBC, BMP ####[address] [place], [place] [address] MCHC 33.5 G/dL Normal 33.0-37.0 [facility] ([place]) Comment on above: Performed By: #### A BECKY PREEZ MDW, GFR, CBC, BMP ####[address] [place], [place] [address] MCV (RBC) [Entitic vol] 87.7 fL Normal 80.0-94.0 A [facility] ([place]) Comment on above: Performed By: #### A BECKY PEREZ MDW, GFR, CBC, BMP ####[address] [place], [place] [address] Platelet 192 10 3/mcL Normal 130-400 [facility] ([place]) Comment on above: Performed By: #### A BECKY PEREZ MDW, GFR, CBC, BMP ####[address] [place], [place] [address] Platelet mean volume (Bld) [Entitic vol] 8.5 fL Normal 7.4-10.4 [facility] ([place]) Comment on above: Performed By: #### A BECKY PEREZ MDW, GFR, CBC, BMP ####[address] [place], [place] [address] RBC 4.64 10 6/mcL Normal 4.20-5.40 [facility] ([place]) Comment on above: Performed By: #### A BECKY PEREZ MDW, GFR, CBC, BMP ####[address] [place], [place] [address] WBC 11.2 10 3/mcL High 4.6-10.8 [facility] ([place]) Comment on above: Performed By: #### A BECKY PEREZ MDW, GFR, CBC, BMP ####[address] [place], [place] [address] LABORATORYOrdered By: Rosario Cagle on 07-15-2023 Appearance (U) Slightly Cloudy *ABN* (07/15/23 1:22 PM) Invalid Interpretation Code Clear AO Auto Urine SS Bacteria LM.HPF (Urine sed) [#/Area] 2 /[HPF] Invalid Interpretation Code AO Auto Urine SS Bilirubin Ql (U) Negative (07/15/23 1:22 PM) Normal Negative AO Auto Urine SS Color (U) Yellow (07/15/23 1:22 PM) Normal AO Auto Urine SS Crystals.amorphous LM.HPF (Urine sed) [#/Area] 3 /[HPF] Normal AO Auto Urine SS Glucose Test strip (U) [Mass/Vol] >=1000 mg/dL Invalid Interpretation Code Negative AO Auto Urine SS HCG ( test) Ql Negative (07/15/23 1:22 PM) Normal AO Manual Urine SS Hemoglobin Auto test strip (U) [Mass/Vol] Trace *ABN* (07/15/23 1:22 PM) Invalid Interpretation Code Negative AO Auto Urine SS Ketones Ql (U) Negative Normal Negative AO Auto Ur ine SS test (u) int Not detected Invalid Interpretation Code AO Manual Urine SS UA Leuk Est Small *ABN* (07/15/23 1:22 PM) Invalid Interpretation Code Negative AO Auto Urine SS UA Nitrite Negative (07/15/23 1:22 PM) Normal Negative AO Auto Urine SS UA pH 7.0 (07/15/23 1:22 PM) Normal 5.0 - 8.0 AO Auto Urine SS UA Protein Negative Normal Negative AO Auto Urine SS UA RBC 0-5 /HPF Invalid Interpretation Code None Seen AO Auto Urine SS UA Spec Grav 1.020 (07/15/23 1:22 PM) Normal 1.015-1.02 5 AO Auto Urine SS UA Specimen Type Catheter (07/15/23 1:22 PM) Normal AO Auto Urine SS UA Squam Epithelial 10-15 /HPF Invalid Interpretation Code None Seen AO Auto Urine SS UA Urobilinogen 0.2 E.U./dL Normal 0.2-1.0 AO Auto Urine SS WBC LM.HPF (Urine sed) [#/Area] 10-15 /HPF Invalid Interpretation Code None Seen AO Auto Urine SS LABORATORYOrdered By: SYSTEM SYSTEM on 07-15-2023 Basophil, Absolute 0.1 103/mcL Normal 0.0 - 0.2 10^3/mcL AO Workflow SS Basophils/100 WBC (Bld) 0.7 % Normal 0.0 - 2.5 % AO Workflow SS Calcium [Mass/Vol] 9.5 mg/dL Normal 8.4 - 10. 2 mg/dL AO ADM SS Chloride [Moles/Vol] 101 mmol/L Normal 98 - 10 7 mmol/L AO ADM SS CO2 [Moles/Vol] 26 mmol/L Normal 22 - 29 mmol/L AO ADM SS Creatinine [Mass/Vol] 0.99 mg/dL Normal 0.55 - 1.02 mg/dL AO ADM SS Electrolyte Balance 8.0 mEq/L Normal 4.0 - 15 .0 mEq/L AO ADM SS Eosinophil, Absolute 0.2 103/mcL Normal 0.0 - 0 .4 10^3/mcL AO Workflow SS Eosinophils/100 WBC (Bld) 1.6 % Normal 0.0 - 7.0 % AO Workflow SS Erythrocyte distribution width (RBC) [Ratio] 14.2 % Normal 11.5 - 14.5 % AO Workflow SS GFR/1.73 sq M.predicted among blacks MDRD (S/P/Bld) [Vol rate/Area] 75 ml/min/1.73sqm Invalid Interpretation Code AO Chemistry S Comment on above: Interpretive Data: GFR Population mean for , Non- Americans Ages 20-29 = 116 mL/min/1.73 sq.m. Ages 30-39 = 107 mL/min/1.73 sq.m. Ages 40-49 = 99 mL/min/1.73 sq.m. Ages 50-59 = 93 mL/min/1.73 sq.m. Ages 60-69 = 85 mL/min/1.73 sq.m. Ages 70+ = 75 mL/min/1.73 sq.m. Chronic Kidney Disease: Less than 60 mL/min/1.73 square meters End Stage Renal Disease: Less than 15 mL/min/1.73 square meters GFR/1.73 sq M.predicted among non-blacks MDRD (S/P/Bld) [Vol rate/Area] 62 ml/min/1.73sqm Invalid Interpretation Code AO Chemistry S Comment on above: Interpretive Data: GFR Population mean for , Non- Americans Ages 20-29 = 116 mL/min/1.73 sq.m. Ages 30-39 = 107 mL/min/1.73 sq.m. Ages 40-49 = 99 mL/min/1.73 sq.m. Ages 50-59 = 93 mL/min/1.73 sq.m. Ages 60-69 = 85 mL/min/1.73 sq.m. Ages 70+ = 75 mL/min/1.73 sq.m. Chronic Kidney Disease: Less than 60 mL/min/1.73 square meters End Stage Renal Disease: Less than 15 mL/min/1.73 square meters Glucose [Mass/Vol] 343 mg/dL High 70 - 105 mg/dL AO ADM SS Hematocrit (Bld) [Volume fraction] 40.7 % Normal 37.0 - 47.0 % AO Workflow SS Hemoglobin (Bld) [Mass/Vol] 13.6 G/dL Normal 12.0 - 16.0 G/dL AO Workflow SS Lymphocyte, Absolute 2.5 103/mcL Normal 0.8 - 3 .9 10^3/mcL AO Workflow SS Lymphocytes/100 WBC (Bld) 22.3 % Normal 10.0 - 50.0 % AO Workflow SS MCH (RBC) [Entitic mass] 29.4 pg Normal 27.0 - 31.2 pg AO Workflow SS MCHC 33.5 G/dL Normal 33.0 - 37.0 G/dL AO Workflow SS MCV (RBC) [Entitic vol] 87.7 fL Normal 80.0 - 94.0 fL AO Workflow SS Monocyte distribution width Auto (Bld) [Entitic vol] 18.25 1 Normal 0.00 - 20.00 AO Workflow SS Comment on above: Result Comment: For ED adult patients suspected of sepsis, MDW<=20.0 does not rule out sepsis or risk of sepsis Monocyte, Absolute 1.1 103/mcL High 0.2 - 1.0 10^3/mcL AO Workflow SS Monocytes/100 WBC (Bld) 10.2 % Normal 1.7 - 13.0 % AO Workflow SS Neutrophil, Absolute 7.3 103/mcL High 2.9 - 6 .2 10^3/mcL AO Workflow SS Neutrophils/100 WBC (Bld) 65.2 % Normal 37.0 - 80.0 % AO Workflow SS Platelet mean volume (Bld) [Entitic vol] 8.5 fL Normal 7.4 - 10.4 fL AO Workflow SS Platelets (Bld) [#/Vol] 192 103/mcL Normal 130 - 400 10^3/mcL AO Workflow SS Potassium [Moles/Vol] 4.1 mmol/L Normal 3.5 - 5.1 mmol/L AO ADM SS RBC (Bld) [#/Vol] 4.64 106/mcL Normal 4.20 - 5.40 10^6/mcL AO Workflow SS Sodium [Moles/Vol] 135 mmol/L Low 136 - 145 mmol/L AO ADM SS Urea nitrogen [Mass/Vol] 14 mg/dL Normal 7 - 18 mg/dL AO ADM SS Urea nitrogen/Creatinine [Mass ratio] 14 ratio Normal 7 - 27 ratio AO ADM SS WBC (Bld) [#/Vol] 11.2 103/mcL High 4.6 - 10.8 10^3/mcL AO Workflow SS PREGUon 07-15-2023 HCG ( test) Ql (U) Negative Normal [facility] ([place]) Comment on above: Performed By: #### P REGUALESSANDRAMICTITA, UA ####[address] [place], [place] [address] test (u) int Not detected Invalid Interpretation Code [facility] ([place]) Comment on above: Performed By: #### P REGU, UAMICAO, UA ####[address] [place], [place] [address] UAon 07-15-2023 Color (U) Yellow Normal [facility] ([place]) Comment on above: Performed By: #### P REGU, UAMICAO, UA ####[address] [place] [address] Glucose (U) [Mass/Vol] mg/dL Abnormal Negative [facility] ([place]) Comment on above: Performed By: #### P REGU, UAMICAO, UA ####[address] [place] [address] Ketones Ql (U) Negative Normal Negative [facility] ([place]) Comment on above: Performed By: #### P REGU, UAMICAO, UA ####[address] [place] [address] UA Appear Slightly Cloudy Abnormal Clear [facility] ([place]) Comment on above: Performed By: #### P REGU, UAMICAO, UA ####[address] [place] [address] UA Blood Trace Abnormal Negative [facility] ([place]) Comment on above: Performed By: #### P REGU, UAMICAO, UA ####[address] [place] [address] UA Leuk Est Small Abnormal Negative [facility] ([place]) Comment on above: Performed By: #### P REGU, UAMICAO, UA ####[address] [place] [address] UA Nitrite Negative Normal Negative [facility] ([place]) Comment on above: Performed By: #### P REGU, UAMICAO, UA ####[address] [place] [address] UA pH 7.0 Normal 5.0 - 8.0 [facility] ([place]) Comment on above: Performed By: #### P REGU, UAMICAO, UA ####[address] [place] [address] UA Protein Negative Normal Negative [facility] ([place]) Comment on above: Performed By: #### P REGU, UAMICAO, UA ####[address] [place] [address] UA Spec Grav 1.020 Normal 1.015-1.02 5 [facility] ([place]) Comment on above: Performed By: #### P REGU, UAMICAO, UA ####[address] [place], [place] [address] UA Specimen Type Catheter Normal [facility] ([place]) Comment on above: Performed By: #### P REGU, UAMICAO, UA ####[address] [place], [place] [address] UA Urobilinogen 0.2 E.U./dL Normal 0.2-1.0 [facility] ([place]) Comment on above: Performed By: #### P REGU, UAMICAO, UA ####[address] [place], [place] [address] Urobilinogen (U) [Mass/Vol] Negative Normal Negative [facility] ([place]) Comment on above: Performed By: #### P REGU, UAMICAO, UA ####[address] [place], [place] [address] .Auto Diffon 06-07-2023 Basophil, Absolute 0.1 10 3/mcL Normal 0.0-0.2 [facility] ([place]) Comment on above: Performed By: #### A DIFF, BMP, ANEU, CBC, GFR, MDW ####[address] [place], [place] [address] Basophils/100 WBC (Bld) 0.7 % Normal 0.0-2.5 A [facility] ([place]) Comment on above: Performed By: #### A DIFF, BMP, ANEU, CBC, GFR, MDW ####[address] [place], [place] [address] Eosinophil, Absolute 0.2 10 3/mcL Normal 0.0-0.4 [facility] ([place]) Comment on above: Performed By: #### A DIFF, BMP, ANEU, CBC, GFR, MDW ####[address] [place], [place] [address] Eosinophils/100 WBC (Bld) 1.9 % Normal 0.0-7.0 [facility] ([place]) Comment on above: Performed By: #### A DIFF, BMP, ANEU, CBC, GFR, KALEB ####[address] [place], [place] [address] Lymphocyte, Absolute 2.5 10 3/mcL Normal 0.8-3.9 [facility] ([place]) Comment on above: Performed By: #### A DIFF, BMP, ANEU, CBC, GFR, KALEB ####[address] [place], [place] [address] Lymphocytes/100 WBC (Bld) 21.5 % Normal 10.0-50.0 [facility] ([place]) Comment on above: Performed By: #### A DIFF, BMP, ANEU, CBC, GFR, KALEB ####[address] [place], [place] [address] Monocyte, Absolute 0.9 10 3/mcL Normal 0.2-1.0 [facility] ([place]) Comment on above: Performed By: #### A DIFF, BMP, ANEU, CBC, GFR, KALEB ####[address] [place], [place] [address] Monocytes/100 WBC (Bld) 7.9 % Normal 1.7-13.0 [facility] ([place]) Comment on above: Performed By: #### A DIFF, BMP, ANEU, CBC, GFR, KALEB ####[address] [place], [place] [address] Neutrophils/100 WBC (Bld) 68.0 % Normal 37.0-80.0 [facility] ([place]) Comment on above: Performed By: #### A DIFF, BMP, ANEU, CBC, GFR, KALEB ####[address] [place], [place] [address] .GFRon 06-07-2023 GFR Non- 67 ml/min/1.73sqm Normal [facility] ([place]) Comment on above: Result Comment: GFR Population mean for , Non- Americans Ages 20-29 = 116 mL/min/1.73 sq.m. Ages 30-39 = 107 mL/min/1.73 sq.m. Ages 40-49 = 99 mL/min/1.73 sq.m. Ages 50-59 = 93 mL/min/1.73 sq.m. Ages 60-69 = 85 mL/min/1.73 sq.m. Ages 70+ = 75 mL/min/1.73 sq.m.Chronic Kidney Disease: Less than 60 mL/min/1.73 square metersEnd Stage Renal Disease: Less than 15 mL/min/1.73 square meters Performed By: #### A DIFF, BMP, ANEU, CBC, GFR, MDW ####[address] [place], [place] [address] GFR 82 ml/min/1.73sqm Normal [facility] ([place]) Comment on above: Result Comment: GFR Population mean for , Non- Americans Ages 20-29 = 116 mL/min/1.73 sq.m. Ages 30-39 = 107 mL/min/1.73 sq.m. Ages 40-49 = 99 mL/min/1.73 sq.m. Ages 50-59 = 93 mL/min/1.73 sq.m. Ages 60-69 = 85 mL/min/1.73 sq.m. Ages 70+ = 75 mL/min/1.73 sq.m.Chronic Kidney Disease: Less than 60 mL/min/1.73 square metersEnd Stage Renal Disease: Less than 15 mL/min/1.73 square meters Performed By: #### A DIFF, BMP, ANEU, CBC, GFR, MDW ####Sarwat [address] [place], [place] [address] .MDWon 06-07-2023 Monocyte Distribution Width 15.96 Normal 0.00-20.00 [facility] ([place]) Comment on above: Result Comment: For ED adult patients suspected of sepsis, MDW<=20.0 does not rule out sepsis or risk of sepsis Performed By: #### A DIFF, BMP, ANEU, CBC, GFR, MDW ####Sarwat [address] [place], [place] [address] .NEUABSon 06-07-2023 Neutrophil, Absolute 7.8 10 3/mcL High 2.9-6.2 [facility] ([place]) Comment on above: Performed By: #### A DIFF, BMP, ANEU, CBC, GFR, MDW ####Sarwat [address] [place], [place] [address] .Urinalysis Microscopic (AO) on 06-07-2023 UA Bacteria Trace Abnormal [facility] ([place]) Comment on above: Performed By: #### U AMICAO, UA ####[address] [place], [place] [address] UA RBC 0-5 Abnormal None Seen [facility] ([place]) Comment on above: Performed By: #### U AMICAO, UA ####[address] [place], [place] [address] UA Squam Epithelial 0-5 Abnormal None Seen [facility] ([place]) Comment on above: Performed By: #### U AMICAO, UA ####[address] [place], [place] [address] UA WBC LOADED Abnormal None Seen [facility] ([place]) Comment on above: Performed By: #### U AMICAO, UA ####[address] [place], [place] [address] BMPon 06-07-2023 BUN/Creatinine Ratio 16 ratio Normal 7-27 [facility] ([place]) Comment on above: Performed By: #### A DIFF, BMP, ANEU, CBC, GFR, MDW ####[address] [place], [place] [address] Calcium [Mass/Vol] 9.6 mg/dL Normal 8.4-10.2 [facility] ([place]) Comment on above: Performed By: #### A DIFF, BMP, ANEU, CBC, GFR, MDW ####[address] [place], [place] [address] Chloride [Moles/Vol] 97 mmol/L Low 98-107 [facility] ([place]) Comment on above: Performed By: #### A DIFF, BMP, ANEU, CBC, GFR, MDW ####[address] [place], [place] [address] CO2 [Moles/Vol] 24 mmol/L Normal 22-29 [facility] ([place]) Comment on above: Performed By: #### A DIFF, BMP, ANEU, CBC, GFR, W ####[address] [place], [place] [address] Creatinine [Mass/Vol] 0.92 mg/dL Normal 0.55-1.02 [facility] ([place]) Comment on above: Performed By: #### A DIFF, BMP, ANEU, CBC, GFR, W ####[address] [place], [place] [address] Electrolyte Balance 12.0 mEq/L Normal 4.0-15.0 [facility] ([place]) Comment on above: Performed By: #### A DIFF, BMP, ANEU, CBC, GFR, W ####[address] [place], [place] [address] Glucose [Mass/Vol] 381 mg/dL High 70-105 [facility] ([place]) Comment on above: Performed By: #### A DIFF, BMP, ANEU, CBC, GFR, W ####[address] [place], [place] [address] Potassium [Moles/Vol] 4.5 mmol/L Normal 3.5-5.1 [facility] ([place] Comment on above: Performed By: #### A DIFF, BMP, ANEU, CBC, GFR, MDW ####[address] [place], [place] [address] Sodium [Moles/Vol] 133 mmol/L Low 136-145 [facility] ([place] Comment on above: Performed By: #### A DIFF, BMP, ANEU, CBC, GFR, MDW ####[address] [place], [place] [address] Urea nitrogen [Mass/Vol] 15 mg/dL Normal 7-18 [facility] ([place]) Comment on above: Performed By: #### A DIFF, BMP, ANEU, CBC, GFR, MDW ####[address] [place], [place] [address] CBCon 06-07-2023 Erythrocyte distribution width (RBC) [Ratio] 14.1 % Normal 11.5-14.5 [facility] ([place]) Comment on above: Performed By: #### A DIFF, BMP, ANEU, CBC, GFRKALEB ####[address] [place], [place] [address] Hematocrit (Bld) [Volume fraction] 41.7 % Normal 37.0-47.0 [facility] ([place]) Comment on above: Performed By: #### A DIFF, BMP, ANEU, CBC, GFR, KALEB ####[address] [place], [place] [address] Hgb 14.0 G/dL Normal 12.0-16.0 [facility] ([place]) Comment on above: Performed By: #### A DIFF, BMP, ANEU, CBC, GFRKALEB ####[address] [place], [place] [address] MCH (RBC) [Entitic mass] 29.4 pg Normal 27.0-31.2 [facility] ([place]) Comment on above: Performed By: #### A DIFF, BMP, ANEU, CBC, GFRKALEB ####[address] [place], [place] [address] MCHC 33.5 G/dL Normal 33.0-37.0 [facility] ([place]) Comment on above: Performed By: #### A DIFF, BMP, ANEU, CBC, GFR, KALEB ####[address] [place], [place] [address] MCV (RBC) [Entitic vol] 87.7 fL Normal 80.0-94.0 [facility] ([place]) Comment on above: Performed By: #### A DIFF, BMP, ANEU, CBC, GFR, KALEB ####[address] [place], [place] [address] Platelet 278 10 3/mcL Normal 130-400 [facility] ([place]) Comment on above: Performed By: #### A DIFF, BMP, ANEU, CBC, GFR, KALEB ####[address] [place], [place] [address] Platelet mean volume (Bld) [Entitic vol] 8.5 fL Normal 7.4-10.4 [facility] ([place]) Comment on above: Performed By: #### A DIFF, BMP, ANEU, CBC, GFR, MDW ####[address] [place], [place] [address] RBC 4.75 10 6/mcL Normal 4.20-5.40 [facility] ([place]) Comment on above: Performed By: #### A DIFF, BMP, ANEU, CBC, GFR, MDW ####[address] [place], [place] [address] WBC 11.5 10 3/mcL High 4.6-10.8 [facility] ([place]) Comment on above: Performed By: #### A DIFF, BMP, ANEU, CBC, GFR, MDW ####[address] [place], [place] [address] CT HEAD OR BRAIN W/O CONTRAS Ton 06-07-2023 CT HEAD OR BRAIN W/O CONTRAST Normal [facility]) CT SPINE CERVICAL W/O CONTRA STon 06-07-2023 CT SPINE CERVICAL W/O CONTRAST Normal [facility] ([place]) LABORATORYOrdered By: Daksha Cutler on 06-07-2023 Glucose [Mass/Vol] 261 mg/dL High 70 - 110 mg/dL [facility] Blood Glucose Testing Reason Routine (06/07/23 8:21 PM) [facility] Glucose [Mass/Vol] 303 mg/dL High 70 - 110 mg/dL [facility] LABORATORYOrdered By: Shanon Munson on 06-07-2023 Appearance (U) Clear (06/07/23 7:09 PM) Normal Clear AO Auto Urine SS Bacteria LM.HPF (Urine sed) [#/Area] Trace /HPF Invalid Interpretation Code AO Auto Urine SS Bilirubin Ql (U) Negative (06/07/23 7:09 PM) Normal Negative AO Auto Urine SS Color (U) Yellow (06/07/23 7:09 PM) Normal AO Auto Urine SS Glucose Test strip (U) [Mass/Vol] 500 mg/dL Invalid Interpretation Code Negative AO Auto Urine SS Hemoglobin Auto test strip (U) [Mass/Vol] Negative (06/07/23 7:09 PM) Normal Negative AO Auto Urine SS Ketones Ql (U) Negative Normal Negative AO Auto Ur ine SS UA Leuk Est Small *ABN* (06/07/23 7:09 PM) Invalid Interpretation Code Negative AO Auto Urine SS UA Nitrite Positive *ABN* (06/07/23 7:09 PM) Invalid Interpretation Code Negative AO Auto Urine SS UA pH 6.5 (06/07/23 7:09 PM) Normal 5.0 - 8.0 AO Auto Urine SS UA Protein Negative Normal Negative AO Auto Urine SS UA RBC 0-5 /HPF Invalid Interpretation Code None Seen AO Auto Urine SS UA Spec Grav 1.020 (06/07/23 7:09 PM) Normal 1.015-1.02 5 AO Auto Urine SS UA Specimen Type Clean Catch (06/07/23 7:09 PM) Normal AO Auto Urine SS UA Squam Epithelial 0-5 /HPF Invalid Interpretation Code None Seen AO Auto Urine SS UA Urobilinogen 0.2 E.U./dL Normal 0.2-1.0 AO Auto Urine SS WBC LM.HPF (Urine sed) [#/Area] LOADED /HPF Invalid Interpretation Code None Seen AO Auto Urine SS LABORATORYOrdered By: SYSTEM SYSTEM on 06-07-2023 Basophil, Absolute 0.1 103/mcL Normal 0.0 - 0.2 10^3/mcL AO Workflow SS Basophils/100 WBC (Bld) 0.7 % Normal 0.0 - 2.5 % AO Workflow SS Calcium [Mass/Vol] 9.6 mg/dL Normal 8.4 - 10. 2 mg/dL AO ADM SS Chloride [Moles/Vol] 97 mmol/L Low 98 - 10 7 mmol/L AO ADM SS CO2 [Moles/Vol] 24 mmol/L Normal 22 - 29 mmol/L AO ADM SS Creatinine [Mass/Vol] 0.92 mg/dL Normal 0.55 - 1.02 mg/dL AO ADM SS Electrolyte Balance 12.0 mEq/L Normal 4.0 - 15 .0 mEq/L AO ADM SS Eosinophil, Absolute 0.2 103/mcL Normal 0.0 - 0 .4 10^3/mcL AO Workflow SS Eosinophils/100 WBC (Bld) 1.9 % Normal 0.0 - 7.0 % AO Workflow SS Erythrocyte distribution width (RBC) [Ratio] 14.1 % Normal 11.5 - 14.5 % AO Workflow SS GFR/1.73 sq M.predicted among blacks MDRD (S/P/Bld) [Vol rate/Area] 82 ml/min/1.73sqm Invalid Interpretation Code AO Chemistry S Comment on above: Interpretive Data: GFR Population mean for , Non- Americans Ages 20-29 = 116 mL/min/1.73 sq.m. Ages 30-39 = 107 mL/min/1.73 sq.m. Ages 40-49 = 99 mL/min/1.73 sq.m. Ages 50-59 = 93 mL/min/1.73 sq.m. Ages 60-69 = 85 mL/min/1.73 sq.m. Ages 70+ = 75 mL/min/1.73 sq.m. Chronic Kidney Disease: Less than 60 mL/min/1.73 square meters End Stage Renal Disease: Less than 15 mL/min/1.73 square meters GFR/1.73 sq M.predicted among non-blacks MDRD (S/P/Bld) [Vol rate/Area] 67 ml/min/1.73sqm Invalid Interpretation Code AO Chemistry S Comment on above: Interpretive Data: GFR Population mean for , Non- Americans Ages 20-29 = 116 mL/min/1.73 sq.m. Ages 30-39 = 107 mL/min/1.73 sq.m. Ages 40-49 = 99 mL/min/1.73 sq.m. Ages 50-59 = 93 mL/min/1.73 sq.m. Ages 60-69 = 85 mL/min/1.73 sq.m. Ages 70+ = 75 mL/min/1.73 sq.m. Chronic Kidney Disease: Less than 60 mL/min/1.73 square meters End Stage Renal Disease: Less than 15 mL/min/1.73 square meters Glucose [Mass/Vol] 381 mg/dL High 70 - 105 mg/dL AO ADM SS Hematocrit (Bld) [Volume fraction] 41.7 % Normal 37.0 - 47.0 % AO Workflow SS Hemoglobin (Bld) [Mass/Vol] 14.0 G/dL Normal 12.0 - 16.0 G/dL AO Workflow SS Lymphocyte, Absolute 2.5 103/mcL Normal 0.8 - 3 .9 10^3/mcL AO Workflow SS Lymphocytes/100 WBC (Bld) 21.5 % Normal 10.0 - 50.0 % AO Workflow SS MCH (RBC) [Entitic mass] 29.4 pg Normal 27.0 - 31.2 pg AO Workflow SS MCHC 33.5 G/dL Normal 33.0 - 37.0 G/dL AO Workflow SS MCV (RBC) [Entitic vol] 87.7 fL Normal 80.0 - 94.0 fL AO Workflow SS Monocyte distribution width Auto (Bld) [Entitic vol] 15.96 1 Normal 0.00 - 20.00 AO Workflow SS Comment on above: Result Comment: For ED adult patients suspected of sepsis, MDW<=20.0 does not rule out sepsis or risk of sepsis Monocyte, Absolute 0.9 103/mcL Normal 0.2 - 1.0 10^3/mcL AO Workflow SS Monocytes/100 WBC (Bld) 7.9 % Normal 1.7 - 13.0 % AO Workflow SS Neutrophil, Absolute 7.8 103/mcL High 2.9 - 6 .2 10^3/mcL AO Workflow SS Neutrophils/100 WBC (Bld) 68.0 % Normal 37.0 - 80.0 % AO Workflow SS Platelet mean volume (Bld) [Entitic vol] 8.5 fL Normal 7.4 - 10.4 fL AO Workflow SS Platelets (Bld) [#/Vol] 278 103/mcL Normal 130 - 400 10^3/mcL AO Workflow SS Potassium [Moles/Vol] 4.5 mmol/L Normal 3.5 - 5.1 mmol/L AO ADM SS RBC (Bld) [#/Vol] 4.75 106/mcL Normal 4.20 - 5.40 10^6/mcL AO Workflow SS Sodium [Moles/Vol] 133 mmol/L Low 136 - 145 mmol/L AO ADM SS Urea nitrogen [Mass/Vol] 15 mg/dL Normal 7 - 18 mg/dL AO ADM SS Urea nitrogen/Creatinine [Mass ratio] 16 ratio Normal 7 - 27 ratio AO ADM SS WBC (Bld) [#/Vol] 11.5 103/mcL High 4.6 - 10.8 10^3/mcL AO Workflow SS UAon 06-07-2023 Color (U) Yellow Normal [facility] ([place]) Comment on above: Performed By: #### U AMICAO, UA ####[address] [place], [place] [address] Glucose (U) [Mass/Vol] 500 mg/dL Abnormal Negative [facility] ([place]) Comment on above: Performed By: #### U AMICAO, UA ####[address] [place] [address] Ketones Ql (U) Negative Normal Negative [facility] ([place]) Comment on above: Performed By: #### U AMICAO, UA ####[address] [place] [address] UA Appear Clear Normal Clear [facility] ([place]) Comment on above: Performed By: #### U AMICAO, UA ####[address] [place], [place] [address] UA Blood Negative Normal Negative [facility] ([place]) Comment on above: Performed By: #### U AMICAO, UA ####[address] [place], [place] [address] UA Leuk Est Small Abnormal Negative [facility] ([place]) Comment on above: Performed By: #### U AMICAO, UA ####[address] [place], [place] [address] UA Nitrite Positive Abnormal Negative [facility] ([place]) Comment on above: Performed By: #### U AMICAO, UA ####[address] [place], [place] [address] UA pH 6.5 Normal 5.0 - 8.0 [facility] ([place]) Comment on above: Performed By: #### U AMICAO, UA ####[address] [place], [place] [address] UA Protein Negative Normal Negative [facility] ([place]) Comment on above: Performed By: #### U AMICAO, UA ####[address] [place], [place] [address] UA Spec Grav 1.020 Normal 1.015-1.02 5 [facility] ([place]) Comment on above: Performed By: #### U AMICAO, UA ####[address] [place], [place] [address] UA Specimen Type Clean Catch Normal [facility] ([place]) Comment on above: Performed By: #### U AMICAO, UA ####[address] [place], [place] [address] UA Urobilinogen 0.2 E.U./dL Normal 0.2-1.0 [facility] ([place]) Comment on above: Performed By: #### U AMICAO, UA ####[address] [place], [place] [address] Urobilinogen (U) [Mass/Vol] Negative Normal Negative [facility] ([place]) Comment on above: Performed By: #### U AMICAO, UA ####[address] [place] [id number] XR ELBOW MINIMUM 3 VIEWS LEF Ton 06-07-2023 XR ELBOW MINIMUM 3 VIEWS LEFT Normal [facility] ([place]) XR HAND AND WRIST 6 VIEWS LE FTon 06-07-2023 XR HAND AND WRIST 6 VIEWS LEFT Normal [facility] ([place]) XR SHOULDER MINIMUM 2 VIEWS LEFTon 06-07-2023 XR SHOULDER MINIMUM 2 VIEWS LEFT Normal [facility] ([place]) Absolute lymphocyte countOrd ered By: Kevin Barcenas on 04-20-2023 Lymphocytes Auto (Unsp spec) [#/Vol] 3.22 10*3/uL 0.83-4.51 [facility] Amorphous sediment detection in urine sediment by light microscopyOrdered By: Kevin Barcenas on 04-20-2023 Amorphous sediment LM Ql (Urine sed) 2+ [facility] Basophil percentageOrdered B y: Kevin Barcenas on 04-20-2023 Basophil percentage 10-25 SEEN /hpf 0-5 [facility] Basophils/100 WBC (Bld) 0.9 % 0-1 [facility] Chloride [Moles/Vol] 104 mmol/L 98-107 [facility] Eosinophils/100 WBC (Bld) 1.5 % 0-5 [facility] Glucose [Mass/Vol] 422 mg/dL 74-106 [facility] Comment on above: Glucose result great er than or equal to 200 mg/dLsuggests DIABETES MELLITUS per A.D.A. criteria. Neutrophils (Bld) [#/Vol] 7.6 10*3/uL 2.0-7.7 [facility] Neutrophils/100 WBC (Bld) 61.2 % 47-70 [facility] Potassium [Moles/Vol] 3.8 mmol/L 3.5-5.1 [facility] [place] Sodium [Moles/Vol] 134 mmol/L 136-145 [facility] WBC (Bld) [#/Vol] 12.4 10*3/uL 4.4-11.0 [facility] Bilirubin Test strip Ql (U)O rdered By: Kevin Barcenas on 04-20-2023 Bilirubin Ql (U) Negative Negative [facility] Blood erythrocytes count (nu mber/volume)Ordered By: Kevin Barcenas on 04-20-2023 RBC (Bld) [#/Vol] 4.50 10*6/uL 4.2-5.4 [facility] Blood hemoglobin measurement (mass/volume)Ordered By: Kevin Barcenas on 04-20-2023 Hemoglobin (Bld) [Mass/Vol] 13.1 g/dL 12.0-15.0 [facility] Blood lymphocytes/100 leukoc ytesOrdered By: Kevin Barcenas on 04-20-2023 Lymphocytes/100 WBC (Bld) 26.1 % 19-41 [facility] Blood monocytes/100 leukocyt esOrdered By: Kevin Barcenas on 04-20-2023 Monocytes/100 WBC (Bld) 9.3 % 0-10 [facility] Blood platelet mean volumeOr dered By: Kevin Barcenas on 04-20-2023 Platelet mean volume (Bld) [Entitic vol] 10.7 fL 6.2-12.0 [facility] Culture, urineOrdered By: Puma Barcenas on 04-20-2023 Bacteria identified Cx Nom (U) Morganella morganii sp morgani [facility] Bacteria identified Cx Nom (U) Morganella morganii sp morgani [facility] Determination of erythrocyte mean corpuscular volume (MCV)Ordered By: Kevin Barcenas on 04-20-2023 MCV (RBC) [Entitic vol] 89.1 fL 81-99 [facility] Hematocrit Auto (Bld) [Volum e fraction]Ordered By: Kevin Barcenas on 04-20-2023 Hematocrit (Bld) [Volume fraction] 40.1 % 37-47 [facility] Ketones Test strip Ql (U)Ord ered By: Kevin Barcenas on 04-20-2023 Ketones Ql (U) Negative Negative [facility] Laboratory - Chemistry and C hemistry - challengeOrdered By: Kevin Barcenas on 04-20-2023 CO2 [Moles/Vol] 25.0 mmol/L 21.0-32.0 [facility] Urea nitrogen/Creatinine [Mass ratio] 11.0 mg/mg 10-20 [facility] Laboratory - Hematology and Cell countsOrdered By: Kevin Barcenas on 04-20-2023 Erythrocyte distribution width (RBC) [Entitic vol] 43.6 fL 35.1-43.9 [facility] Erythrocyte distribution width (RBC) [Ratio] 13.4 % 11.6-14.6 [facility] Immature granulocytes/100 WBC (Bld) 1.000 % 0.0-0.9 [facility] Comment on above: IG% - Immature Granu locytes (promyelocytes, myelocytes and metamyelocytes) > 1% indicates that a LEFT SHIFT is Present. MCH (RBC) [Entitic mass] 29.1 pg 27.0-32.0 [facility] Nucleated RBC/100 WBC (Bld) [Ratio] 0 % 0-5 [facility] MCHC Auto (RBC) [Mass/Vol]Or dered By: Kevin Barcenas on 04-20-2023 MCHC (RBC) [Mass/Vol] 32.7 g/dL 32-36 [facility] [place] Mucus LM Ql (Urine sed)Order ed By: Kevin Barcenas on 04-20-2023 Mucus Ql (Urine sed) 0 SEEN /hpf [facility] [place] Nitrite Test strip Ql (U)Ord ered By: Kevin Barcenas on 04-20-2023 Nitrite Ql (U) Positive Negative [facility] No Panel InformationOrdered By: Kevin Barcenas on 04-20-2023 Estimated Creatinine Clearance Calc 55.87 ml/min [facility] Estimated GFR (MDRD) Amer 78 mL/min >60 [facility] Comment on above: GFR Calc Estimated GFR (MDRD) Non-Af Amer 65 mL/min >60 [facility] Comment on above: Non- GFR Calc Platelets bldOrdered By: Nigel Barcenas on 04-20-2023 Platelets (Bld) [#/Vol] 281 10*3/uL 150-450 [facility] Protein Test strip Ql (U)Ord ered By: Kevin Barcenas on 04-20-2023 Protein Ql (U) 30 mg/dl Negative [facility] Serum or plasma calcium thi urement (mass/volume)Ordered By: Kevin Barcenas on 04-20-2023 Calcium [Mass/Vol] 8.8 mg/dL 8.5-10.1 [facility] Serum or plasma creatinine m easurement (mass/volume)Ordered By: Kevin Barcenas on 04-20-2023 Creatinine [Mass/Vol] 1.00 mg/dL 0.55-1.02 [facility] [place] Comment on above: The validity of the calculated GFR & GFRAA in patients over 70 years has not been determined. Clinical correlation is essential. Serum or plasma urea nitroge n measurement (mass/volume)Ordered By: Kevin Barcenas on 04-20-2023 Urea nitrogen [Mass/Vol] 11 mg/dL 7-18 [facility] Squamous epithelial cells de tection in urine sediment by light microscopyOrdered By: Kevin Barcenas on 04-20-2023 Epithelial cells.squamous LM Ql (Urine sed) 0 SEEN /hpf 5-10 [facility] Thin prep Papanicolaou smear with manual screeningOrdered By: Kevin Bracenas on 04-20-2023 Thin prep Papanicolaou smear with manual screening 5 5-15 [facility] Urine blood detectionOrdered By: Kevin Barcenas on 04-20-2023 RBC Ql (U) 10 /ul Negative [facility] RBC Ql (U) 0 SEEN /hpf 0-5 [facility] Urine clarityOrdered By: Nigel Barcenas on 04-20-2023 Clarity (U) Sl. Cloudy Clear [facility] Urine color determinationOrd ered By: Kevin Barcenas on 04-20-2023 Color (U) Yellow Yellow [facility] Urine glucose detectionOrder ed By: Kevin Barcenas on 04-20-2023 Glucose Ql (U) 1000 mg/dl Normal [facility] Urine leukocyte esterase det ection by dipstickOrdered By: Kevin Barcenas on 04-20-2023 Leukocyte esterase Test strip Ql (U) 500 /ul Negative [facility] Urine pHOrdered By: Kevin giron on 04-20-2023 pH (U) 7.0 [pH] 5.0 - 8.0 [facility] Urine sediment bacteria coun t by microscopy (number/high power field)Ordered By: Kevin Barcenas on 04-20-2023 Bacteria LM.HPF (Urine sed) [#/Area] 2 /[HPF] None Seen [facility] Urine specific gravity measu rementOrdered By: Kevin Barcenas on 04-20-2023 Specific gravity (U) [Rel density] 1.010 1.002-1.03 0 [facility] Urobilinogen Auto test strip Ql (U)Ordered By: Kevin Barcenas on 04-20-2023 Urobilinogen Ql (U) Normal mg/dl Normal [facility] THYROID BIOPSY RIGHT (POC ) SURG USE ONLYon 04-13-2023 [facility] .Auto Diffon 02-25-2023 Basophil, Absolute 0.1 10 3/mcL Normal 0.0-0.2 [facility] ([place]) Comment on above: Performed By: #### G FR, CMP, ANEU, ADIFF, CBC ####[address] [place], [place] [address] Basophils/100 WBC (Bld) 0.7 % Normal 0.0-2.5 A [facility] ([place]) Comment on above: Performed By: #### G FR, CMP, ANEU, ADIFF, CBC ####[address] [place], [place] [address] Eosinophil, Absolute 0.2 10 3/mcL Normal 0.0-0.4 [facility] ([place]) Comment on above: Performed By: #### G FR, CMP, ANEU, ADIFF, CBC ####[address] [place], [place] [address] Eosinophils/100 WBC (Bld) 1.7 % Normal 0.0-7.0 [facility] ([place]) Comment on above: Performed By: #### G FR, CMP, ANEU, ADIFF, CBC ####[address] [place], [place] [address] Lymphocyte, Absolute 4.0 10 3/mcL High 0.8-3.9 [facility] ([place] Comment on above: Performed By: #### G FR, CMP, ANEU, ADIFF, CBC ####[address] [place], [place] [address] Lymphocytes/100 WBC (Bld) 34.5 % Normal 10.0-50.0 [facility] ([place]) Comment on above: Performed By: #### G FR, CMP, ANEU, ADIFF, CBC ####[address] [place], [place] [address] Monocyte, Absolute 1.2 10 3/mcL High 0.2-1.0 [facility] ([place]) Comment on above: Performed By: #### G FR, CMP, ANEU, ADIFF, CBC ####[address] [place], [place] [address] Monocytes/100 WBC (Bld) 10.8 % Normal 1.7-13.0 [facility] ([place]) Comment on above: Performed By: #### G FR, CMP, ANEU, ADIFF, CBC ####[address] [place], [place] [address] Neutrophils/100 WBC (Bld) 52.3 % Normal 37.0-80.0 [facility] ([place]) Comment on above: Performed By: #### G FR, CMP, ANEU, ADIFF, CBC ####[address] [place], [place] [address] .GFRon 02-25-2023 GFR 69 ml/min/1.73sqm Normal [facility] ([place]) Comment on above: Result Comment: GFR Population mean for , Non- Americans Ages 20-29 = 116 mL/min/1.73 sq.m. Ages 30-39 = 107 mL/min/1.73 sq.m. Ages 40-49 = 99 mL/min/1.73 sq.m. Ages 50-59 = 93 mL/min/1.73 sq.m. Ages 60-69 = 85 mL/min/1.73 sq.m. Ages 70+ = 75 mL/min/1.73 sq.m.Chronic Kidney Disease: Less than 60 mL/min/1.73 square metersEnd Stage Renal Disease: Less than 15 mL/min/1.73 square meters Performed By: #### G FR, CMP, ANEU, ADIFF, CBC ####[address] [place], [place] [address] GFR Non- 57 ml/min/1.73sqm Normal [facility] ([place]) Comment on above: Result Comment: GFR Population mean for , Non- Americans Ages 20-29 = 116 mL/min/1.73 sq.m. Ages 30-39 = 107 mL/min/1.73 sq.m. Ages 40-49 = 99 mL/min/1.73 sq.m. Ages 50-59 = 93 mL/min/1.73 sq.m. Ages 60-69 = 85 mL/min/1.73 sq.m. Ages 70+ = 75 mL/min/1.73 sq.m.Chronic Kidney Disease: Less than 60 mL/min/1.73 square metersEnd Stage Renal Disease: Less than 15 mL/min/1.73 square meters Performed By: #### G FR, CMP, ANEU, ADIFF, CBC ####[address] [place], [place] [address] .NEUABSon 02-25-2023 Neutrophil, Absolute 6.0 10 3/mcL Normal 2.9-6.2 [facility] ([place]) Comment on above: Performed By: #### G FR, CMP, ANEU, ADIFF, CBC ####[address] [place], [place] [address] CBCon 02-25-2023 Erythrocyte distribution width (RBC) [Ratio] 14.7 % High 11.5-14.5 [facility] ([place]) Comment on above: Performed By: #### G FR, CMP, ANEU, ADIFF, CBC ####[address] [place], [place] [address] Hematocrit (Bld) [Volume fraction] 39.8 % Normal 37.0-47.0 [facility] ([place]) Comment on above: Performed By: #### G FR, CMP, ANEU, ADIFF, CBC ####[address] [place], [place] [address] Hgb 12.8 G/dL Normal 12.0-16.0 [facility] ([place]) Comment on above: Performed By: #### G FR, CMP, ANEU, ADIFF, CBC ####[address] [place], [place] [address] MCH (RBC) [Entitic mass] 29.2 pg Normal 27.0-31.2 [facility] ([place]) Comment on above: Performed By: #### G FR, CMP, ANEU, ADIFF, CBC ####[address] [place], [place] [address] MCHC 32.2 G/dL Low 33.0-37.0 [facility] ([place]) Comment on above: Performed By: #### G FR, CMP, ANEU, ADIFF, CBC ####[address] [place], [place] [address] MCV (RBC) [Entitic vol] 90.7 fL Normal 80.0-94.0 [facility] ([place]) Comment on above: Performed By: #### G FR, CMP, ANEU, ADIFF, CBC ####[address] [place], [place] [address] Platelet 233 10 3/mcL Normal 130-400 [facility] ([place]) Comment on above: Performed By: #### G FR, CMP, ANEU, ADIFF, CBC ####[address] [place], [place] [address] Platelet mean volume (Bld) [Entitic vol] 8.7 fL Normal 7.4-10.4 [facility] ([place]) Comment on above: Performed By: #### G FR, CMP, ANEU, ADIFF, CBC ####[address] [place], [place] [address] RBC 4.38 10 6/mcL Normal 4.20-5.40 [facility] ([place]) Comment on above: Performed By: #### G FR, CMP, ANEU, ADIFF, CBC ####[address] [place], [place] [address] WBC 11.5 10 3/mcL High 4.6-10.8 [facility] ([place]) Comment on above: Performed By: #### G FR, CMP, ANEU, ADIFF, CBC ####[address] [place], [place] [address] CMPon 02-25-2023 Albumin Level 3.1 G/dL Low 3.5-5.0 [facility] ([place] Comment on above: Performed By: #### G FR, CMP, ANEU, ADIFF, CBC ####[address] [place], [place] [address] Albumin/Globulin [Mass ratio] 0.9 {ratio} Low 1.1-2.5 [facility] ([place] Comment on above: Performed By: #### G FR, CMP, ANEU, ADIFF, CBC ####[address] [place], [place] [address] ALP [Catalytic activity/Vol] 82 U/L Normal 40-135 [facility] ([place] Comment on above: Performed By: #### G FR, CMP, ANEU, ADIFF, CBC ####[id number] [place], [place] [address] ALT [Catalytic activity/Vol] 30 U/L Normal 14-59 [facility] ([place] Comment on above: Performed By: #### G FR, CMP, ANEU, ADIFF, CBC ####[address] [place], [place] [address] AST [Catalytic activity/Vol] 17 U/L Normal 10-40 [facility] ([place] Comment on above: Performed By: #### G FR, CMP, ANEU, ADIFF, CBC ####[address] [place], [place] [address] Bili Total 0.2 mg/dL Normal 0.2-1.0 [facility] ([place]) Comment on above: Result Comment: Use of this assay is not recommended for patients undergoing treatment with eltrombopag due to the potential for falsely elevated results. Performed By: #### G FR, CMP, ANEU, ADIFF, CBC ####[address] [place], [place] [address] BUN/Creatinine Ratio 18 ratio Normal 7-27 [facility] ([place]) Comment on above: Performed By: #### G FR, CMP, ANEU, ADIFF, CBC ####[address] [place], [place] [address] Calcium [Mass/Vol] 8.5 mg/dL Normal 8.4-10.2 [facility] ([place]) Comment on above: Performed By: #### G FR, CMP, ANEU, ADIFF, CBC ####[address] [place], [place] [address] Chloride [Moles/Vol] 102 mmol/L Normal 98-107 [facility] ([place]) Comment on above: Performed By: #### G FR, CMP, ANEU, ADIFF, CBC ####[address] [place], [place] [address] CO2 [Moles/Vol] 27 mmol/L Normal 22-29 [facility] ([place]) Comment on above: Performed By: #### G FR, CMP, ANEU, ADIFF, CBC ####[address] [place], [place] [address] Creatinine [Mass/Vol] 1.06 mg/dL High 0.55-1.02 [facility] ([place]) Comment on above: Performed By: #### G FR, CMP, ANEU, ADIFF, CBC ####[address] [place], [place] [address] Electrolyte Balance 10.0 mEq/L Normal 4.0-15.0 [facility] ([place]) Comment on above: Performed By: #### G FR, CMP, ANEU, ADIFF, CBC ####[address] [place], [place] [address] Globulin 3.6 G/dL Normal [facility] ([place]) Comment on above: Performed By: #### G FR, CMP, ANEU, ADIFF, CBC ####[address] [place], [place] [address] Glucose [Mass/Vol] 238 mg/dL High 70-105 [facility] ([place]) Comment on above: Performed By: #### G FR, CMP, ANEU, ADIFF, CBC ####[address] [place], [place] [address] Potassium [Moles/Vol] 3.6 mmol/L Normal 3.5-5.1 [facility] ([place]) Comment on above: Performed By: #### G FR, CMP, ANEU, ADIFF, CBC ####[address] [place], [place] [address] Sodium [Moles/Vol] 139 mmol/L Normal 136-145 [facility] ([place]) Comment on above: Performed By: #### G FR, CMP, ANEU, ADIFF, CBC ####[address] [place], [place] [address] Total Protein 6.7 G/dL Normal 6.4-8.2 [facility] ([place]) Comment on above: Performed By: #### G FR, CMP, ANEU, ADIFF, CBC ####[address] [place], [place] [address] Urea nitrogen [Mass/Vol] 19 mg/dL High 7-18 [facility] ([place]) Comment on above: Performed By: #### G FR, CMP, ANEU, ADIFF, CBC ####[address] [place], [place] [address] CURon 02-25-2023 [facility] ([place]) LABORATORYOrdered By: Eileen Mendez on 02-25-2023 Glucose [Mass/Vol] 109 mg/dL Invalid Interpretation Code 70 - 110 mg/dL [facility] Glucose [Mass/Vol] 148 mg/dL Invalid Interpretation Code 70 - 110 mg/dL [facility] Glucose [Mass/Vol] 223 mg/dL Invalid Interpretation Code 70 - 110 mg/dL [facility] LABORATORYOrdered By: SYSTEM SYSTEM on 02-25-2023 Albumin BCP dye [Mass/Vol] 3.1 G/dL Invalid Interpretation Code 3.5 - 5.0 G/dL AO ADM SS Albumin/Globulin [Mass ratio] 0.9 {ratio} Invalid Interpretation Code 1.1 - 2.5 ratio AO ADM SS ALP [Catalytic activity/Vol] 82 U/L Invalid Interpretation Code 40 - 135 U/L AO ADM SS ALT With P-5'-P [Catalytic activity/Vol] 30 U/L Invalid Interpretation Code 14 - 59 U/L AO ADM SS AST With P-5'-P [Catalytic activity/Vol] 17 U/L Invalid Interpretation Code 10 - 40 U/L AO ADM SS Basophil, Absolute 0.1 103/mcL Invalid Interpretation Code 0.0 - 0.2 10^3/mcL AO Workflow SS Basophils/100 WBC (Bld) 0.7 % Invalid Interpretation Code 0.0 - 2.5 % AO Workflow SS Bilirubin [Mass/Vol] 0.2 mg/dL Invalid Interpretation Code 0.2 - 1.0 mg/dL AO ADM SS Comment on above: Interpretive Data: U se of this assay is not recommended for patients undergoing treatment with eltrombopag due to the potential for falsely elevated results. Calcium [Mass/Vol] 8.5 mg/dL Invalid Interpretation Code 8.4 - 10.2 mg/dL AO ADM SS Chloride [Moles/Vol] 102 mmol/L Invalid Interpretation Code 98 - 107 mmol/L AO ADM SS CO2 [Moles/Vol] 27 mmol/L Invalid Interpretation Code 22 - 29 mmol/L AO ADM SS Creatinine [Mass/Vol] 1.06 mg/dL Invalid Interpretation Code 0.55 - 1.02 mg/dL AO ADM SS Electrolyte Balance 10.0 mEq/L Invalid Interpretation Code 4.0 - 15.0 mEq/L AO ADM SS Eosinophil, Absolute 0.2 103/mcL Invalid Interpretation Code 0.0 - 0.4 10^3/mcL AO Workflow SS Eosinophils/100 WBC (Bld) 1.7 % Invalid Interpretation Code 0.0 - 7.0 % AO Workflow SS Erythrocyte distribution width (RBC) [Ratio] 14.7 % Invalid Interpretation Code 11.5 - 14.5 % AO Workflow SS GFR/1.73 sq M.predicted among blacks MDRD (S/P/Bld) [Vol rate/Area] 69 ml/min/1.73sqm Invalid Interpretation Code AO Chemistry S Comment on above: Interpretive Data: GFR Population mean for , Non- Americans Ages 20-29 = 116 mL/min/1.73 sq.m. Ages 30-39 = 107 mL/min/1.73 sq.m. Ages 40-49 = 99 mL/min/1.73 sq.m. Ages 50-59 = 93 mL/min/1.73 sq.m. Ages 60-69 = 85 mL/min/1.73 sq.m. Ages 70+ = 75 mL/min/1.73 sq.m. Chronic Kidney Disease: Less than 60 mL/min/1.73 square meters End Stage Renal Disease: Less than 15 mL/min/1.73 square meters GFR/1.73 sq M.predicted among non-blacks MDRD (S/P/Bld) [Vol rate/Area] 57 ml/min/1.73sqm Invalid Interpretation Code AO Chemistry S Comment on above: Interpretive Data: GFR Population mean for , Non- Americans Ages 20-29 = 116 mL/min/1.73 sq.m. Ages 30-39 = 107 mL/min/1.73 sq.m. Ages 40-49 = 99 mL/min/1.73 sq.m. Ages 50-59 = 93 mL/min/1.73 sq.m. Ages 60-69 = 85 mL/min/1.73 sq.m. Ages 70+ = 75 mL/min/1.73 sq.m. Chronic Kidney Disease: Less than 60 mL/min/1.73 square meters End Stage Renal Disease: Less than 15 mL/min/1.73 square meters Globulin 3.6 G/dL Invalid Interpretation Code AO ADM SS Glucose [Mass/Vol] 238 mg/dL Invalid Interpretation Code 70 - 105 mg/dL AO ADM SS Hematocrit (Bld) [Volume fraction] 39.8 % Invalid Interpretation Code 37.0 - 47.0 % AO Workflow SS Hemoglobin (Bld) [Mass/Vol] 12.8 G/dL Invalid Interpretation Code 12.0 - 16.0 G/dL AO Workflow SS Lymphocyte, Absolute 4.0 103/mcL Invalid Interpretation Code 0.8 - 3.9 10^3/mcL AO Workflow SS Lymphocytes/100 WBC (Bld) 34.5 % Invalid Interpretation Code 10.0 - 50.0 % AO Workflow SS Magnesium [Mass/Vol] 2.0 mg/dL Invalid Interpretation Code 1.8 - 2.4 mg/dL AO ADM SS MCH (RBC) [Entitic mass] 29.2 pg Invalid Interpretation Code 27.0 - 31.2 pg AO Workflow SS MCHC 32.2 G/dL Invalid Interpretation Code 33.0 - 37.0 G/dL AO Workflow SS MCV (RBC) [Entitic vol] 90.7 fL Invalid Interpretation Code 80.0 - 94.0 fL AO Workflow SS Monocyte, Absolute 1.2 103/mcL Invalid Interpretation Code 0.2 - 1.0 10^3/mcL AO Workflow SS Monocytes/100 WBC (Bld) 10.8 % Invalid Interpretation Code 1.7 - 13.0 % AO Workflow SS Neutrophil, Absolute 6.0 103/mcL Invalid Interpretation Code 2.9 - 6.2 10^3/mcL AO Workflow SS Neutrophils/100 WBC (Bld) 52.3 % Invalid Interpretation Code 37.0 - 80.0 % AO Workflow SS Platelet mean volume (Bld) [Entitic vol] 8.7 fL Invalid Interpretation Code 7.4 - 10.4 fL AO Workflow SS Platelets (Bld) [#/Vol] 233 103/mcL Invalid Interpretation Code 130 - 400 10^3/mcL AO Workflow SS Potassium [Moles/Vol] 3.6 mmol/L Invalid Interpretation Code 3.5 - 5.1 mmol/L AO ADM SS Protein [Mass/Vol] 6.7 G/dL Invalid Interpretation Code 6.4 - 8.2 G/dL AO ADM SS RBC (Bld) [#/Vol] 4.38 106/mcL Invalid Interpretation Code 4.20 - 5.40 10^6/mcL AO Workflow SS Sodium [Moles/Vol] 139 mmol/L Invalid Interpretation Code 136 - 145 mmol/L AO ADM SS Urea nitrogen [Mass/Vol] 19 mg/dL Invalid Interpretation Code 7 - 18 mg/dL AO ADM SS Urea nitrogen/Creatinine [Mass ratio] 18 ratio Invalid Interpretation Code 7 - 27 ratio AO ADM SS WBC (Bld) [#/Vol] 11.5 103/mcL Invalid Interpretation Code 4.6 - 10.8 10^3/mcL AO Workflow SS MGon 02-25-2023 Magnesium [Mass/Vol] 2.0 mg/dL Normal 1.8-2.4 [facility] ([place]) Comment on above: Performed By: #### M G ####[address] [place], [place] [address] .Auto Diffon 02-24-2023 Basophil, Absolute 0.1 10 3/mcL Normal 0.0-0.2 [facility] ([place]) Comment on above: Performed By: #### A CHRIS, CMP, ADIFF, GFR, CBC ####[address] [place], [place] [address] Basophils/100 WBC (Bld) 0.5 % Normal 0.0-2.5 A [facility] ([place]) Comment on above: Performed By: #### A CHRIS, CMP, ADIFF, GFR, CBC ####[address] [place], [place] [address] Eosinophil, Absolute 0.2 10 3/mcL Normal 0.0-0.4 [facility] ([place]) Comment on above: Performed By: #### A CHRIS, CMP, ADIFF, GFR, CBC ####[address] [place], [place] [address] Eosinophils/100 WBC (Bld) 1.7 % Normal 0.0-7.0 [facility] ([place]) Comment on above: Performed By: #### A CHRIS, CMP, ADIFF, GFR, CBC ####[address] [place], [place] [address] Lymphocyte, Absolute 4.9 10 3/mcL High 0.8-3.9 [facility] ([place]) Comment on above: Performed By: #### A CHRIS, CMP, ADIFF, GFR, CBC ####[address] [place], [place] [address] Lymphocytes/100 WBC (Bld) 40.2 % Normal 10.0-50.0 [facility] ([place]) Comment on above: Performed By: #### A CHRIS, CMP, ADIFF, GFR, CBC ####[address] [place], [place] [address] Monocyte, Absolute 1.1 10 3/mcL High 0.2-1.0 [facility] ([place]) Comment on above: Performed By: #### A CHRIS, CMP, ADIFF, GFR, CBC ####[address] [place], [place] [address] Monocytes/100 WBC (Bld) 9.4 % Normal 1.7-13.0 A [facility] ([place]) Comment on above: Performed By: #### A CHRIS, CMP, ADIFF, GFR, CBC ####[address] [place], [place] [address] Neutrophils/100 WBC (Bld) 48.2 % Normal 37.0-80.0 [facility] ([place]) Comment on above: Performed By: #### A CHRIS, CMP, ADIFF, GFR, CBC ####[address] [place], [place] [address] .GFRon 02-24-2023 GFR 67 ml/min/1.73sqm Normal [facility] ([place]) Comment on above: Result Comment: GFR Population mean for , Non- Americans Ages 20-29 = 116 mL/min/1.73 sq.m. Ages 30-39 = 107 mL/min/1.73 sq.m. Ages 40-49 = 99 mL/min/1.73 sq.m. Ages 50-59 = 93 mL/min/1.73 sq.m. Ages 60-69 = 85 mL/min/1.73 sq.m. Ages 70+ = 75 mL/min/1.73 sq.m.Chronic Kidney Disease: Less than 60 mL/min/1.73 square metersEnd Stage Renal Disease: Less than 15 mL/min/1.73 square meters Performed By: #### A CHRIS, CMP, ADIFF, GFR, CBC ####[address] [place], [place] [address] GFR Non- 55 ml/min/1.73sqm Normal [facility] ([place]) Comment on above: Result Comment: GFR Population mean for , Non- Americans Ages 20-29 = 116 mL/min/1.73 sq.m. Ages 30-39 = 107 mL/min/1.73 sq.m. Ages 40-49 = 99 mL/min/1.73 sq.m. Ages 50-59 = 93 mL/min/1.73 sq.m. Ages 60-69 = 85 mL/min/1.73 sq.m. Ages 70+ = 75 mL/min/1.73 sq.m.Chronic Kidney Disease: Less than 60 mL/min/1.73 square metersEnd Stage Renal Disease: Less than 15 mL/min/1.73 square meters Performed By: #### A CHRIS, CMP, ADIFF, GFR, CBC ####[address] [place], [place] [address] .NEUABSon 02-24-2023 Neutrophil, Absolute 5.9 10 3/mcL Normal 2.9-6.2 [facility] ([place]) Comment on above: Performed By: #### A CHRIS, CMP, ADIFF, GFR, CBC ####[address] [place], [place] [address] CBCon 02-24-2023 Erythrocyte distribution width (RBC) [Ratio] 14.6 % High 11.5-14.5 [facility] ([place]) Comment on above: Performed By: #### A CHRIS, CMP, ADIFF, GFR, CBC ####[address] [place], [place] [address] Hematocrit (Bld) [Volume fraction] 36.1 % Low 37.0-47.0 [facility] ([place]) Comment on above: Performed By: #### A CHRIS, CMP, ADIFF, GFR, CBC ####[address] [place], [place] [address] Hgb 12.0 G/dL Normal 12.0-16.0 [facility] ([place]) Comment on above: Performed By: #### A CHRIS, CMP, ADIFF, GFR, CBC ####[address] [place], [place] [address] MCH (RBC) [Entitic mass] 28.9 pg Normal 27.0-31.2 [facility] ([place]) Comment on above: Performed By: #### A CHRIS, CMP, ADIFF, GFR, CBC ####[address] [place], [place] [address] MCHC 33.3 G/dL Normal 33.0-37.0 [facility] ([place]) Comment on above: Performed By: #### A CHRIS, CMP, ADIFF, GFR, CBC ####[address] [place], [place] [address] MCV (RBC) [Entitic vol] 86.8 fL Normal 80.0-94.0 A [facility] ([place]) Comment on above: Performed By: #### A CHRIS, CMP, ADIFF, GFR, CBC ####[address] [place], [place] [address] Platelet 249 10 3/mcL Normal 130-400 [facility] ([place]) Comment on above: Performed By: #### A CHRIS, CMP, ADIFF, GFR, CBC ####[address] [place], [place] [address] Platelet mean volume (Bld) [Entitic vol] 8.9 fL Normal 7.4-10.4 [facility] ([place]) Comment on above: Performed By: #### A CHRIS, CMP, ADIFF, GFR, CBC ####[address] [place], [place] [address] RBC 4.16 10 6/mcL Low 4.20-5.40 [facility] ([place]) Comment on above: Performed By: #### A CHRIS, CMP, ADIFF, GFR, CBC ####[address] [place], [place] [address] WBC 12.2 10 3/mcL High 4.6-10.8 [facility] ([place]) Comment on above: Performed By: #### A CHRIS, CMP, ADIFF, GFR, CBC ####[address] [place], [place] [address] CMPon 02-24-2023 Albumin Level 3.0 G/dL Low 3.5-5.0 [facility] ([place]) Comment on above: Performed By: #### A CHRIS, CMP, ADIFF, GFR, CBC ####[address] [place], [place] [address] Albumin/Globulin [Mass ratio] 0.9 {ratio} Low 1.1-2.5 [facility] ([place]) Comment on above: Performed By: #### A CHRIS, CMP, ADIFF, GFR, CBC ####[address] [place], [place] [address] ALP [Catalytic activity/Vol] 70 U/L Normal 40-135 [facility] ([place]) Comment on above: Performed By: #### A CHRIS, CMP, ADIFF, GFR, CBC ####[address] [place], [place] [address] ALT [Catalytic activity/Vol] 34 U/L Normal 14-59 [facility] ([place]) Comment on above: Performed By: #### A CHRIS, CMP, ADIFF, GFR, CBC ####[address] [place], [place] [address] AST [Catalytic activity/Vol] 16 U/L Normal 10-40 [facility] ([place]) Comment on above: Performed By: #### A CHRIS, CMP, ADIFF, GFR, CBC ####[address] [place], [place] [address] Bili Total 0.2 mg/dL Normal 0.2-1.0 [facility] ([place]) Comment on above: Result Comment: Use of this assay is not recommended for patients undergoing treatment with eltrombopag due to the potential for falsely elevated results. Performed By: #### A CHRIS, CMP, ADIFF, GFR, CBC ####[address] [place], [place] [address] BUN/Creatinine Ratio 17 ratio Normal 7-27 [facility] ([place]) Comment on above: Performed By: #### A CHRIS, CMP, ADIFF, GFR, CBC ####[address] [place], [place] [address] Calcium [Mass/Vol] 8.3 mg/dL Low 8.4-10.2 [facility] ([place]) Comment on above: Performed By: #### A CHRIS, CMP, ADIFF, GFR, CBC ####[address] [place], [place] [address] Chloride [Moles/Vol] 103 mmol/L Normal 98-107 [facility] ([place]) Comment on above: Performed By: #### A CHRIS, CMP, ADIFF, GFR, CBC ####[address] [place], [place] [address] CO2 [Moles/Vol] 29 mmol/L Normal 22-29 [facility] ([place]) Comment on above: Performed By: #### A CHRIS, CMP, ADIFF, GFR, CBC ####[address] [place], [place] [address] Creatinine [Mass/Vol] 1.09 mg/dL High 0.55-1.02 [facility] ([place]) Comment on above: Performed By: #### A CHRIS, CMP, ADIFF, GFR, CBC ####[address] [place], [place] [address] Electrolyte Balance 10.0 mEq/L Normal 4.0-15.0 [facility] ([place]) Comment on above: Performed By: #### A CHRIS, CMP, ADIFF, GFR, CBC ####[address] [place], [place] [address] Globulin 3.5 G/dL Normal [facility] ([place]) Comment on above: Performed By: #### A CHRIS, CMP, ADIFF, GFR, CBC ####[address] [place], [place] [address] Glucose [Mass/Vol] 114 mg/dL High 70-105 [facility] ([place]) Comment on above: Performed By: #### A CHRIS, CMP, ADIFF, GFR, CBC ####[address] [place], [place] [address] Potassium [Moles/Vol] 3.9 mmol/L Normal 3.5-5.1 [facility] ([place]) Comment on above: Performed By: #### A CHRIS, CMP, ADIFF, GFR, CBC ####[address] [place], [place] [address] Sodium [Moles/Vol] 142 mmol/L Normal 136-145 [facility] ([place]) Comment on above: Performed By: #### A CHRIS, CMP, ADIFF, GFR, CBC ####[address] [place], [place] [address] Total Protein 6.5 G/dL Normal 6.4-8.2 [facility] ([place]) Comment on above: Performed By: #### A CHRIS, CMP, ADIFF, GFR, CBC ####[address] [place], [place] [address] Urea nitrogen [Mass/Vol] 19 mg/dL High 7-18 [facility] ([place]) Comment on above: Performed By: #### A CHRIS, CMP, ADIFF, GFR, CBC ####[address] [place], [place] [address] LABORATORYOrdered By: Jordan Shine on 02-24-2023 Blood Glucose Testing Reason Routine (02/24/23 9:11 PM) [facility] LABORATORYOrdered By: SYSTEM SYSTEM on 02-24-2023 Albumin BCP dye [Mass/Vol] 3.0 G/dL Invalid Interpretation Code 3.5 - 5.0 G/dL AO ADM SS Albumin/Globulin [Mass ratio] 0.9 {ratio} Invalid Interpretation Code 1.1 - 2.5 ratio AO ADM SS ALP [Catalytic activity/Vol] 70 U/L Invalid Interpretation Code 40 - 135 U/L AO ADM SS ALT With P-5'-P [Catalytic activity/Vol] 34 U/L Invalid Interpretation Code 14 - 59 U/L AO ADM SS AST With P-5'-P [Catalytic activity/Vol] 16 U/L Invalid Interpretation Code 10 - 40 U/L AO ADM SS Basophil, Absolute 0.1 103/mcL Invalid Interpretation Code 0.0 - 0.2 10^3/mcL AO Workflow SS Basophils/100 WBC (Bld) 0.5 % Invalid Interpretation Code 0.0 - 2.5 % AO Workflow SS Bilirubin [Mass/Vol] 0.2 mg/dL Invalid Interpretation Code 0.2 - 1.0 mg/dL AO ADM SS Comment on above: Interpretive Data: U se of this assay is not recommended for patients undergoing treatment with eltrombopag due to the potential for falsely elevated results. Calcium [Mass/Vol] 8.3 mg/dL Invalid Interpretation Code 8.4 - 10.2 mg/dL AO ADM SS Chloride [Moles/Vol] 103 mmol/L Invalid Interpretation Code 98 - 107 mmol/L AO ADM SS CO2 [Moles/Vol] 29 mmol/L Invalid Interpretation Code 22 - 29 mmol/L AO ADM SS Creatinine [Mass/Vol] 1.09 mg/dL Invalid Interpretation Code 0.55 - 1.02 mg/dL AO ADM SS Electrolyte Balance 10.0 mEq/L Invalid Interpretation Code 4.0 - 15.0 mEq/L AO ADM SS Eosinophil, Absolute 0.2 103/mcL Invalid Interpretation Code 0.0 - 0.4 10^3/mcL AO Workflow SS Eosinophils/100 WBC (Bld) 1.7 % Invalid Interpretation Code 0.0 - 7.0 % AO Workflow SS Erythrocyte distribution width (RBC) [Ratio] 14.6 % Invalid Interpretation Code 11.5 - 14.5 % AO Workflow SS GFR/1.73 sq M.predicted among blacks MDRD (S/P/Bld) [Vol rate/Area] 67 ml/min/1.73sqm Invalid Interpretation Code AO Chemistry S Comment on above: Interpretive Data: GFR Population mean for , Non- Americans Ages 20-29 = 116 mL/min/1.73 sq.m. Ages 30-39 = 107 mL/min/1.73 sq.m. Ages 40-49 = 99 mL/min/1.73 sq.m. Ages 50-59 = 93 mL/min/1.73 sq.m. Ages 60-69 = 85 mL/min/1.73 sq.m. Ages 70+ = 75 mL/min/1.73 sq.m. Chronic Kidney Disease: Less than 60 mL/min/1.73 square meters End Stage Renal Disease: Less than 15 mL/min/1.73 square meters GFR/1.73 sq M.predicted among non-blacks MDRD (S/P/Bld) [Vol rate/Area] 55 ml/min/1.73sqm Invalid Interpretation Code AO Chemistry S Comment on above: Interpretive Data: GFR Population mean for , Non- Americans Ages 20-29 = 116 mL/min/1.73 sq.m. Ages 30-39 = 107 mL/min/1.73 sq.m. Ages 40-49 = 99 mL/min/1.73 sq.m. Ages 50-59 = 93 mL/min/1.73 sq.m. Ages 60-69 = 85 mL/min/1.73 sq.m. Ages 70+ = 75 mL/min/1.73 sq.m. Chronic Kidney Disease: Less than 60 mL/min/1.73 square meters End Stage Renal Disease: Less than 15 mL/min/1.73 square meters Globulin 3.5 G/dL Invalid Interpretation Code AO ADM SS Glucose [Mass/Vol] 114 mg/dL Invalid Interpretation Code 70 - 105 mg/dL AO ADM SS Hematocrit (Bld) [Volume fraction] 36.1 % Invalid Interpretation Code 37.0 - 47.0 % AO Workflow SS Hemoglobin (Bld) [Mass/Vol] 12.0 G/dL Invalid Interpretation Code 12.0 - 16.0 G/dL AO Workflow SS Lymphocyte, Absolute 4.9 103/mcL Invalid Interpretation Code 0.8 - 3.9 10^3/mcL AO Workflow SS Lymphocytes/100 WBC (Bld) 40.2 % Invalid Interpretation Code 10.0 - 50.0 % AO Workflow SS Magnesium [Mass/Vol] 1.7 mg/dL Invalid Interpretation Code 1.8 - 2.4 mg/dL AO ADM SS MCH (RBC) [Entitic mass] 28.9 pg Invalid Interpretation Code 27.0 - 31.2 pg AO Workflow SS MCHC 33.3 G/dL Invalid Interpretation Code 33.0 - 37.0 G/dL AO Workflow SS MCV (RBC) [Entitic vol] 86.8 fL Invalid Interpretation Code 80.0 - 94.0 fL AO Workflow SS Monocyte, Absolute 1.1 103/mcL Invalid Interpretation Code 0.2 - 1.0 10^3/mcL AO Workflow SS Monocytes/100 WBC (Bld) 9.4 % Invalid Interpretation Code 1.7 - 13.0 % AO Workflow SS Neutrophil, Absolute 5.9 103/mcL Invalid Interpretation Code 2.9 - 6.2 10^3/mcL AO Workflow SS Neutrophils/100 WBC (Bld) 48.2 % Invalid Interpretation Code 37.0 - 80.0 % AO Workflow SS Platelet mean volume (Bld) [Entitic vol] 8.9 fL Invalid Interpretation Code 7.4 - 10.4 fL AO Workflow SS Platelets (Bld) [#/Vol] 249 103/mcL Invalid Interpretation Code 130 - 400 10^3/mcL AO Workflow SS Potassium [Moles/Vol] 3.9 mmol/L Invalid Interpretation Code 3.5 - 5.1 mmol/L AO ADM SS Protein [Mass/Vol] 6.5 G/dL Invalid Interpretation Code 6.4 - 8.2 G/dL AO ADM SS RBC (Bld) [#/Vol] 4.16 106/mcL Invalid Interpretation Code 4.20 - 5.40 10^6/mcL AO Workflow SS Sodium [Moles/Vol] 142 mmol/L Invalid Interpretation Code 136 - 145 mmol/L AO ADM SS Urea nitrogen [Mass/Vol] 19 mg/dL Invalid Interpretation Code 7 - 18 mg/dL AO ADM SS Urea nitrogen/Creatinine [Mass ratio] 17 ratio Invalid Interpretation Code 7 - 27 ratio AO ADM SS WBC (Bld) [#/Vol] 12.2 103/mcL Invalid Interpretation Code 4.6 - 10.8 10^3/mcL AO Workflow SS MGon 02-24-2023 Magnesium [Mass/Vol] 1.7 mg/dL Low 1.8-2.4 [facility] ([place]) Comment on above: Performed By: #### M G ####[address] [place], [place] [address] .Auto Diffon 02-23-2023 Basophil, Absolute 0.2 10 3/mcL Normal 0.0-0.2 [facility] ([place]) Comment on above: Performed By: #### C BC, ANEU, GFR, CMP, ADIFF ####[address] [place], [place] [address] Basophils/100 WBC (Bld) 1.4 % Normal 0.0-2.5 A [facility] ([place]) Comment on above: Performed By: #### C BC, ANEU, GFR, CMP, ADIFF ####[address] [place], [place] [address] Eosinophil, Absolute 0.1 10 3/mcL Normal 0.0-0.4 [facility] ([place]) Comment on above: Performed By: #### C BC, ANEU, GFR, CMP, ADIFF ####[address] [place], [place] [address] Eosinophils/100 WBC (Bld) 0.7 % Normal 0.0-7.0 [facility] ([place]) Comment on above: Performed By: #### C BC, ANEU, GFR, CMP, ADIFF ####[address] [place], [place] [address] Lymphocyte, Absolute 3.2 10 3/mcL Normal 0.8-3.9 [facility] ([place]) Comment on above: Performed By: #### C BC, ANEU, GFR, CMP, ADIFF ####[address] [place], [place] [address] Lymphocytes/100 WBC (Bld) 19.5 % Normal 10.0-50.0 [facility] ([place]) Comment on above: Performed By: #### C BC, ANEU, GFR, CMP, ADIFF ####[address] [place], [place] [address] Monocyte, Absolute 1.3 10 3/mcL High 0.2-1.0 [facility] ([place]) Comment on above: Performed By: #### C BC, ANEU, GFR, CMP, ADIFF ####[address] [place], [place] [address] Monocytes/100 WBC (Bld) 8.1 % Normal 1.7-13.0 [facility] ([place]) Comment on above: Performed By: #### C BC, ANEU, GFR, CMP, ADIFF ####[address] [place], [place] [address] Neutrophils/100 WBC (Bld) 70.3 % Normal 37.0-80.0 [facility] ([place]) Comment on above: Performed By: #### C BC, ANEU, GFR, CMP, ADIFF ####[address] [place], [place] [address] .GFRon 02-23-2023 GFR Non- 55 ml/min/1.73sqm Normal [facility] ([place]) Comment on above: Result Comment: GFR Population mean for , Non- Americans Ages 20-29 = 116 mL/min/1.73 sq.m. Ages 30-39 = 107 mL/min/1.73 sq.m. Ages 40-49 = 99 mL/min/1.73 sq.m. Ages 50-59 = 93 mL/min/1.73 sq.m. Ages 60-69 = 85 mL/min/1.73 sq.m. Ages 70+ = 75 mL/min/1.73 sq.m.Chronic Kidney Disease: Less than 60 mL/min/1.73 square metersEnd Stage Renal Disease: Less than 15 mL/min/1.73 square meters Performed By: #### C BC, ANEU, GFR, CMP, ADIFF ####[address] [place], [place] [address] GFR 66 ml/min/1.73sqm Normal [facility] ([place]) Comment on above: Result Comment: GFR Population mean for , Non- Americans Ages 20-29 = 116 mL/min/1.73 sq.m. Ages 30-39 = 107 mL/min/1.73 sq.m. Ages 40-49 = 99 mL/min/1.73 sq.m. Ages 50-59 = 93 mL/min/1.73 sq.m. Ages 60-69 = 85 mL/min/1.73 sq.m. Ages 70+ = 75 mL/min/1.73 sq.m.Chronic Kidney Disease: Less than 60 mL/min/1.73 square metersEnd Stage Renal Disease: Less than 15 mL/min/1.73 square meters Performed By: #### C BC, ANEU, GFR, CMP, ADIFF ####[address] [place], [place] [address] .NEUABSon 02-23-2023 Neutrophil, Absolute 11.5 10 3/mcL High 2.9-6.2 A [facility] ([place]) Comment on above: Performed By: #### C BC, ANEU, GFR, CMP, ADIFF ####[address] [place], [place] [address] CBCon 02-23-2023 Erythrocyte distribution width (RBC) [Ratio] 14.6 % High 11.5-14.5 [facility] ([place]) Comment on above: Performed By: #### C BC, ANEU, GFR, CMP, ADIFF ####[address] [place], [place] [address] Hematocrit (Bld) [Volume fraction] 35.4 % Low 37.0-47.0 [facility] ([place]) Comment on above: Performed By: #### C BC, ANEU, GFR, CMP, ADIFF ####[address] [place], [place] [address] Hgb 11.7 G/dL Low 12.0-16.0 [facility] ([place]) Comment on above: Performed By: #### C BC, ANEU, GFR, CMP, ADIFF ####[address] [place], [place] [address] MCH (RBC) [Entitic mass] 28.9 pg Normal 27.0-31.2 [facility] ([place]) Comment on above: Performed By: #### C BC, ANEU, GFR, CMP, ADIFF ####[address] [place], [place] [address] MCHC 33.2 G/dL Normal 33.0-37.0 [facility] ([place]) Comment on above: Performed By: #### C BC, ANEU, GFR, CMP, ADIFF ####[address] [place], [place] [address] MCV (RBC) [Entitic vol] 87.1 fL Normal 80.0-94.0 A [facility] ([place]) Comment on above: Performed By: #### C BC, ANEU, GFR, CMP, ADIFF ####[address] [place], [place] [address] Platelet 222 10 3/mcL Normal 130-400 [facility] ([place]) Comment on above: Performed By: #### C BC, ANEU, GFR, CMP, ADIFF ####[address] [place], [place] [address] Platelet mean volume (Bld) [Entitic vol] 9.1 fL Normal 7.4-10.4 [facility] ([place]) Comment on above: Performed By: #### C BC, ANEU, GFR, CMP, ADIFF ####[address] [place], [place] [address] RBC 4.06 10 6/mcL Low 4.20-5.40 [facility] ([place]) Comment on above: Performed By: #### C BC, ANEU, GFR, CMP, ADIFF ####[address] [place], [place] [address] WBC 16.4 10 3/mcL High 4.6-10.8 [facility] ([place]) Comment on above: Performed By: #### C BC, ANEU, GFR, CMP, ADIFF ####[address] [place], [place] [address] CMPon 02-23-2023 Albumin Level 3.0 G/dL Low 3.5-5.0 [facility] ([place]) Comment on above: Performed By: #### C BC, ANEU, GFR, CMP, ADIFF ####[address] [place], [place] [address] Albumin/Globulin [Mass ratio] 0.8 {ratio} Low 1.1-2.5 [facility] ([place]) Comment on above: Performed By: #### C BC, ANEU, GFR, CMP, ADIFF ####[address] [place], [place] [address] ALP [Catalytic activity/Vol] 80 U/L Normal 40-135 [facility] ([place]) Comment on above: Performed By: #### C BC, ANEU, GFR, CMP, ADIFF ####[address] [place], [place] [address] ALT [Catalytic activity/Vol] 37 U/L Normal 14-59 [facility] ([place]) Comment on above: Performed By: #### C BC, ANEU, GFR, CMP, ADIFF ####[address] [place], [place] [address] AST [Catalytic activity/Vol] 15 U/L Normal 10-40 [facility] ([place]) Comment on above: Performed By: #### C BC, ANEU, GFR, CMP, ADIFF ####[address] [place], [place] [address] Bili Total 0.3 mg/dL Normal 0.2-1.0 [facility] ([place]) Comment on above: Result Comment: Use of this assay is not recommended for patients undergoing treatment with eltrombopag due to the potential for falsely elevated results. Performed By: #### C BC, ANEU, GFR, CMP, ADIFF ####[address] [place], [place] [address] BUN/Creatinine Ratio 21 ratio Normal 7-27 [facility] ([place]) Comment on above: Performed By: #### C BC, ANEU, GFR, CMP, ADIFF ####[address] [place], [place] [address] Calcium [Mass/Vol] 8.0 mg/dL Low 8.4-10.2 [facility] ([place]) Comment on above: Performed By: #### C BC, ANEU, GFR, CMP, ADIFF ####[address] [place], [place] [address] Chloride [Moles/Vol] 105 mmol/L Normal 98-107 [facility] ([place]) Comment on above: Performed By: #### C BC, ANEU, GFR, CMP, ADIFF ####[address] [place], [place] [address] CO2 [Moles/Vol] 24 mmol/L Normal 22-29 [facility] ([place]) Comment on above: Performed By: #### C BC, ANEU, GFR, CMP, ADIFF ####[address] [place], [place] [address] Creatinine [Mass/Vol] 1.10 mg/dL High 0.55-1.02 [facility] ([place]) Comment on above: Performed By: #### C BC, ANEU, GFR, CMP, ADIFF ####[address] [place], [place] [address] Electrolyte Balance 10.0 mEq/L Normal 4.0-15.0 [facility] ([place]) Comment on above: Performed By: #### C BC, ANEU, GFR, CMP, ADIFF ####[address] [place], [place] [address] Globulin 3.7 G/dL Normal [facility] ([place]) Comment on above: Performed By: #### C BC, ANEU, GFR, CMP, ADIFF ####[address] [place], [place] [address] Glucose [Mass/Vol] 202 mg/dL High 70-105 [facility] ([place]) Comment on above: Performed By: #### C BC, ANEU, GFR, CMP, ADIFF ####[address] [place], [place] [address] Potassium [Moles/Vol] 4.0 mmol/L Normal 3.5-5.1 [facility] ([place]) Comment on above: Performed By: #### C BC, ANEU, GFR, CMP, ADIFF ####[address] [place], [place] [address] Sodium [Moles/Vol] 139 mmol/L Normal 136-145 [facility] ([place]) Comment on above: Performed By: #### C BC, ANEU, GFR, CMP, ADIFF ####[address] [place], [place] [address] Total Protein 6.7 G/dL Normal 6.4-8.2 [facility] ([place]) Comment on above: Performed By: #### C BC, ANEU, GFR, CMP, ADIFF ####[address] [place], [place] [address] Urea nitrogen [Mass/Vol] 23 mg/dL High 7-18 [facility] ([place]) Comment on above: Performed By: #### C BC, ANEU, GFR, CMP, ADIFF ####[address] [place], [place] [address] LABORATORYOrdered By: Chantell De Jesus on 02-23-2023 Blood Glucose Testing Reason Routine (02/23/23 9:25 PM) [facility] LABORATORYOrdered By: SYSTEM SYSTEM on 02-23-2023 Albumin BCP dye [Mass/Vol] 3.0 G/dL Invalid Interpretation Code 3.5 - 5.0 G/dL AO ADM SS Albumin/Globulin [Mass ratio] 0.8 {ratio} Invalid Interpretation Code 1.1 - 2.5 ratio AO ADM SS ALP [Catalytic activity/Vol] 80 U/L Invalid Interpretation Code 40 - 135 U/L AO ADM SS ALT With P-5'-P [Catalytic activity/Vol] 37 U/L Invalid Interpretation Code 14 - 59 U/L AO ADM SS AST With P-5'-P [Catalytic activity/Vol] 15 U/L Invalid Interpretation Code 10 - 40 U/L AO ADM SS Basophil, Absolute 0.2 103/mcL Invalid Interpretation Code 0.0 - 0.2 10^3/mcL AO Workflow SS Basophils/100 WBC (Bld) 1.4 % Invalid Interpretation Code 0.0 - 2.5 % AO Workflow SS Bilirubin [Mass/Vol] 0.3 mg/dL Invalid Interpretation Code 0.2 - 1.0 mg/dL AO ADM SS Comment on above: Interpretive Data: U se of this assay is not recommended for patients undergoing treatment with eltrombopag due to the potential for falsely elevated results. Calcium [Mass/Vol] 8.0 mg/dL Invalid Interpretation Code 8.4 - 10.2 mg/dL AO ADM SS Chloride [Moles/Vol] 105 mmol/L Invalid Interpretation Code 98 - 107 mmol/L AO ADM SS CO2 [Moles/Vol] 24 mmol/L Invalid Interpretation Code 22 - 29 mmol/L AO ADM SS Creatinine [Mass/Vol] 1.10 mg/dL Invalid Interpretation Code 0.55 - 1.02 mg/dL AO ADM SS Electrolyte Balance 10.0 mEq/L Invalid Interpretation Code 4.0 - 15.0 mEq/L AO ADM SS Eosinophil, Absolute 0.1 103/mcL Invalid Interpretation Code 0.0 - 0.4 10^3/mcL AO Workflow SS Eosinophils/100 WBC (Bld) 0.7 % Invalid Interpretation Code 0.0 - 7.0 % AO Workflow SS Erythrocyte distribution width (RBC) [Ratio] 14.6 % Invalid Interpretation Code 11.5 - 14.5 % AO Workflow SS GFR/1.73 sq M.predicted among blacks MDRD (S/P/Bld) [Vol rate/Area] 66 ml/min/1.73sqm Invalid Interpretation Code AO Chemistry S Comment on above: Interpretive Data: GFR Population mean for , Non- Americans Ages 20-29 = 116 mL/min/1.73 sq.m. Ages 30-39 = 107 mL/min/1.73 sq.m. Ages 40-49 = 99 mL/min/1.73 sq.m. Ages 50-59 = 93 mL/min/1.73 sq.m. Ages 60-69 = 85 mL/min/1.73 sq.m. Ages 70+ = 75 mL/min/1.73 sq.m. Chronic Kidney Disease: Less than 60 mL/min/1.73 square meters End Stage Renal Disease: Less than 15 mL/min/1.73 square meters GFR/1.73 sq M.predicted among non-blacks MDRD (S/P/Bld) [Vol rate/Area] 55 ml/min/1.73sqm Invalid Interpretation Code AO Chemistry S Comment on above: Interpretive Data: GFR Population mean for , Non- Americans Ages 20-29 = 116 mL/min/1.73 sq.m. Ages 30-39 = 107 mL/min/1.73 sq.m. Ages 40-49 = 99 mL/min/1.73 sq.m. Ages 50-59 = 93 mL/min/1.73 sq.m. Ages 60-69 = 85 mL/min/1.73 sq.m. Ages 70+ = 75 mL/min/1.73 sq.m. Chronic Kidney Disease: Less than 60 mL/min/1.73 square meters End Stage Renal Disease: Less than 15 mL/min/1.73 square meters Globulin 3.7 G/dL Invalid Interpretation Code AO ADM SS Glucose [Mass/Vol] 202 mg/dL Invalid Interpretation Code 70 - 105 mg/dL AO ADM SS Hematocrit (Bld) [Volume fraction] 35.4 % Invalid Interpretation Code 37.0 - 47.0 % AO Workflow SS Hemoglobin (Bld) [Mass/Vol] 11.7 G/dL Invalid Interpretation Code 12.0 - 16.0 G/dL AO Workflow SS Lymphocyte, Absolute 3.2 103/mcL Invalid Interpretation Code 0.8 - 3.9 10^3/mcL AO Workflow SS Lymphocytes/100 WBC (Bld) 19.5 % Invalid Interpretation Code 10.0 - 50.0 % AO Workflow SS Magnesium [Mass/Vol] 1.9 mg/dL Invalid Interpretation Code 1.8 - 2.4 mg/dL AO ADM SS MCH (RBC) [Entitic mass] 28.9 pg Invalid Interpretation Code 27.0 - 31.2 pg AO Workflow SS MCHC 33.2 G/dL Invalid Interpretation Code 33.0 - 37.0 G/dL AO Workflow SS MCV (RBC) [Entitic vol] 87.1 fL Invalid Interpretation Code 80.0 - 94.0 fL AO Workflow SS Monocyte, Absolute 1.3 103/mcL Invalid Interpretation Code 0.2 - 1.0 10^3/mcL AO Workflow SS Monocytes/100 WBC (Bld) 8.1 % Invalid Interpretation Code 1.7 - 13.0 % AO Workflow SS Neutrophil, Absolute 11.5 103/mcL Invalid Interpretation Code 2.9 - 6.2 10^3/mcL AO Workflow SS Neutrophils/100 WBC (Bld) 70.3 % Invalid Interpretation Code 37.0 - 80.0 % AO Workflow SS Platelet mean volume (Bld) [Entitic vol] 9.1 fL Invalid Interpretation Code 7.4 - 10.4 fL AO Workflow SS Platelets (Bld) [#/Vol] 222 103/mcL Invalid Interpretation Code 130 - 400 10^3/mcL AO Workflow SS Potassium [Moles/Vol] 4.0 mmol/L Invalid Interpretation Code 3.5 - 5.1 mmol/L AO ADM SS Protein [Mass/Vol] 6.7 G/dL Invalid Interpretation Code 6.4 - 8.2 G/dL AO ADM SS RBC (Bld) [#/Vol] 4.06 106/mcL Invalid Interpretation Code 4.20 - 5.40 10^6/mcL AO Workflow SS Sodium [Moles/Vol] 139 mmol/L Invalid Interpretation Code 136 - 145 mmol/L AO ADM SS Urea nitrogen [Mass/Vol] 23 mg/dL Invalid Interpretation Code 7 - 18 mg/dL AO ADM SS Urea nitrogen/Creatinine [Mass ratio] 21 ratio Invalid Interpretation Code 7 - 27 ratio AO ADM SS WBC (Bld) [#/Vol] 16.4 103/mcL Invalid Interpretation Code 4.6 - 10.8 10^3/mcL AO Workflow SS MGon 02-23-2023 Magnesium [Mass/Vol] 1.9 mg/dL Normal 1.8-2.4 [facility] ([place]) Comment on above: Performed By: #### M G ####[address] [place], [place] [address] .Auto Diffon 02-22-2023 Basophil, Absolute 0.0 10 3/mcL Normal 0.0-0.2 [facility] ([place]) Comment on above: Performed By: #### C MP, ADIFF, ANEU, GFR, CBC, MG ####[address] [place], [place] [address] Basophils/100 WBC (Bld) 0.1 % Normal 0.0-2.5 A [facility] ([place]) Comment on above: Performed By: #### C MP, ADIFF, ANEU, GFR, CBC, MG ####[address] [place], [place] [address] Eosinophil, Absolute 0.0 10 3/mcL Normal 0.0-0.4 [facility] ([place]) Comment on above: Performed By: #### C MP, ADIFF, ANEU, GFR, CBC, MG ####[address] [place], [place] [address] Eosinophils/100 WBC (Bld) 0.1 % Normal 0.0-7.0 [facility] ([place]) Comment on above: Performed By: #### C MP, ADIFF, ANEU, GFR, CBC, MG ####[address] [place], [place] [address] Lymphocyte, Absolute 1.0 10 3/mcL Normal 0.8-3.9 [facility] ([place]) Comment on above: Performed By: #### C MP, ADIFF, ANEU, GFR, CBC, MG ####[address] [place], [place] [address] Lymphocytes/100 WBC (Bld) 8.4 % Low 10.0-50.0 [facility] ([place]) Comment on above: Performed By: #### C MP, ADIFF, ANEU, GFR, CBC, MG ####[address] [place], [place] [address] Monocyte, Absolute 0.2 10 3/mcL Normal 0.2-1.0 [facility] ([place]) Comment on above: Performed By: #### C MP, ADIFF, ANEU, GFR, CBC, MG ####[address] [place], [place] [address] Monocytes/100 WBC (Bld) 1.6 % Low 1.7-13.0 A [facility] ([place]) Comment on above: Performed By: #### C MP, ADIFF, ANEU, GFR, CBC, MG ####[address] [place], [place] [address] Neutrophils/100 WBC (Bld) 89.8 % High 37.0-80.0 [facility] ([place]) Comment on above: Performed By: #### C MP, ADIFF, ANEU, GFR, CBC, MG ####[address] [place], [place] [address] .GFRon 02-22-2023 GFR 62 ml/min/1.73sqm Normal [facility] ([place]) Comment on above: Result Comment: GFR Population mean for , Non- Americans Ages 20-29 = 116 mL/min/1.73 sq.m. Ages 30-39 = 107 mL/min/1.73 sq.m. Ages 40-49 = 99 mL/min/1.73 sq.m. Ages 50-59 = 93 mL/min/1.73 sq.m. Ages 60-69 = 85 mL/min/1.73 sq.m. Ages 70+ = 75 mL/min/1.73 sq.m.Chronic Kidney Disease: Less than 60 mL/min/1.73 square metersEnd Stage Renal Disease: Less than 15 mL/min/1.73 square meters Performed By: #### C MP, ADIFF, ANEU, GFR, CBC, MG ####[address] [place], [place] [address] GFR Non- 51 ml/min/1.73sqm Normal [facility] ([place]) Comment on above: Result Comment: GFR Population mean for , Non- Americans Ages 20-29 = 116 mL/min/1.73 sq.m. Ages 30-39 = 107 mL/min/1.73 sq.m. Ages 40-49 = 99 mL/min/1.73 sq.m. Ages 50-59 = 93 mL/min/1.73 sq.m. Ages 60-69 = 85 mL/min/1.73 sq.m. Ages 70+ = 75 mL/min/1.73 sq.m.Chronic Kidney Disease: Less than 60 mL/min/1.73 square metersEnd Stage Renal Disease: Less than 15 mL/min/1.73 square meters Performed By: #### C MP, ADIFF, ANEU, GFR, CBC, MG ####[address] [place], [place] [address] .NEUABSon 02-22-2023 Neutrophil, Absolute 11.1 10 3/mcL High 2.9-6.2 A [facility] ([place]) Comment on above: Performed By: #### C MP, ADIFF, ANEU, GFR, CBC, MG ####[address] [place], [place] [address] CBCon 02-22-2023 Erythrocyte distribution width (RBC) [Ratio] 14.5 % Normal 11.5-14.5 [facility] ([place]) Comment on above: Performed By: #### C MP, ADIFF, ANEU, GFR, CBC, MG ####[address] [place], [place] [address] Hematocrit (Bld) [Volume fraction] 37.9 % Normal 37.0-47.0 [facility] ([place]) Comment on above: Performed By: #### C MP, ADIFF, ANEU, GFR, CBC, MG ####[address] [place], [place] [address] Hgb 12.5 G/dL Normal 12.0-16.0 [facility] ([place]) Comment on above: Performed By: #### C MP, ADIFF, ANEU, GFR, CBC, MG ####[address] [place], [place] [address] MCH (RBC) [Entitic mass] 29.2 pg Normal 27.0-31.2 [facility] ([place]) Comment on above: Performed By: #### C MP, ADIFF, ANEU, GFR, CBC, MG ####[address] [place], [place] [address] MCHC 33.1 G/dL Normal 33.0-37.0 [facility] ([place]) Comment on above: Performed By: #### C MP, ADIFF, ANEU, GFR, CBC, MG ####[address] [place], [place] [address] MCV (RBC) [Entitic vol] 88.2 fL Normal 80.0-94.0 A [facility] ([place]) Comment on above: Performed By: #### C MP, ADIFF, ANEU, GFR, CBC, MG ####[address] [place], [place] [address] Platelet 216 10 3/mcL Normal 130-400 [facility] ([place]) Comment on above: Performed By: #### C MP, ADIFF, ANEU, GFR, CBC, MG ####[address] [place], [place] [address] Platelet mean volume (Bld) [Entitic vol] 9.4 fL Normal 7.4-10.4 [facility] ([place]) Comment on above: Performed By: #### C MP, ADIFF, ANEU, GFR, CBC, MG ####[address] [place], [place] [address] RBC 4.29 10 6/mcL Normal 4.20-5.40 [facility] ([place]) Comment on above: Performed By: #### C MP, ADIFF, ANEU, GFR, CBC, MG ####[address] [place], [place] [address] WBC 12.4 10 3/mcL High 4.6-10.8 [facility] ([place]) Comment on above: Performed By: #### C MP, ADIFF, ANEU, GFR, CBC, MG ####[address] [place], [place] [address] CMPon 02-22-2023 Albumin Level 3.3 G/dL Low 3.5-5.0 [facility] ([place]) Comment on above: Performed By: #### C MP, ADIFF, ANEU, GFR, CBC, MG ####[address] [place], [place] [address] Albumin/Globulin [Mass ratio] 0.9 {ratio} Low 1.1-2.5 [facility] ([place]) Comment on above: Performed By: #### C MP, ADIFF, ANEU, GFR, CBC, MG ####[address] [place], [place] [address] ALP [Catalytic activity/Vol] 83 U/L Normal 40-135 [facility] ([place]) Comment on above: Performed By: #### C MP, ADIFF, ANEU, GFR, CBC, MG ####[address] [place], [place] [address] ALT [Catalytic activity/Vol] 40 U/L Normal 14-59 [facility] ([place]) Comment on above: Performed By: #### C MP, ADIFF, ANEU, GFR, CBC, MG ####[address] [place], [place] [address] AST [Catalytic activity/Vol] 25 U/L Normal 10-40 [facility] ([place]) Comment on above: Performed By: #### C MP, ADIFF, ANEU, GFR, CBC, MG ####[address] [place], [place] [address] Bili Total 0.4 mg/dL Normal 0.2-1.0 [facility] ([place]) Comment on above: Result Comment: Use of this assay is not recommended for patients undergoing treatment with eltrombopag due to the potential for falsely elevated results. Performed By: #### C MP, ADIFF, ANEU, GFR, CBC, MG ####[address] [place], [place] [address] BUN/Creatinine Ratio 15 ratio Normal 7-27 [facility] ([place]) Comment on above: Performed By: #### C MP, ADIFF, ANEU, GFR, CBC, MG ####[address] [place], [place] [address] Calcium [Mass/Vol] 8.2 mg/dL Low 8.4-10.2 [facility] ([place]) Comment on above: Performed By: #### C MP, ADIFF, ANEU, GFR, CBC, MG ####[address] [place], [place] [address] Chloride [Moles/Vol] 99 mmol/L Normal 98-107 [facility] ([place]) Comment on above: Performed By: #### C MP, ADIFF, ANEU, GFR, CBC, MG ####[address] [place], [place] [address] CO2 [Moles/Vol] 24 mmol/L Normal 22-29 [facility] ([place]) Comment on above: Performed By: #### C MP, ADIFF, ANEU, GFR, CBC, MG ####[address] [place], [place] [address] Creatinine [Mass/Vol] 1.17 mg/dL High 0.55-1.02 [facility] ([place]) Comment on above: Performed By: #### C MP, ADIFF, ANEU, GFR, CBC, MG ####[address] [place], [place] [address] Electrolyte Balance 9.0 mEq/L Normal 4.0-15.0 [facility] ([place]) Comment on above: Performed By: #### C MP, ADIFF, ANEU, GFR, CBC, MG ####[address] [place], [place] [address] Globulin 3.8 G/dL Normal [facility] ([place]) Comment on above: Performed By: #### C MP, ADIFF, ANEU, GFR, CBC, MG ####[address] [place], [place] [address] Glucose [Mass/Vol] 508 mg/dL Critically abnormal 70-105 [facility] ([place]) Comment on above: Performed By: #### C MP, ADIFF, ANEU, GFR, CBC, MG ####[address] [place], [place] [address] Potassium [Moles/Vol] 4.7 mmol/L Normal 3.5-5.1 [facility] ([place]) Comment on above: Performed By: #### C MP, ADIFF, ANEU, GFR, CBC, MG ####[address] [place], [place] [address] Sodium [Moles/Vol] 132 mmol/L Low 136-145 [facility] ([place]) Comment on above: Performed By: #### C MP, ADIFF, ANEU, GFR, CBC, MG ####[address] [place], [place] [address] Total Protein 7.1 G/dL Normal 6.4-8.2 [facility] ([place]) Comment on above: Performed By: #### C MP, ADIFF, ANEU, GFR, CBC, MG ####[address] [place], [place] [address] Urea nitrogen [Mass/Vol] 18 mg/dL Normal 7-18 [facility] ([place]) Comment on above: Performed By: #### C MP, ADIFF, ANEU, GFR, CBC, MG ####[address] [place], [place] [address] CT ABD/PELVIS W/ IV CONTRAST ONLYon 02-22-2023 CT ABD/PELVIS W/ IV CONTRAST ONLY Normal [facility] ([place]) CT ANGIOGRAPHY CHEST W/CONTR Hernandez 02-22-2023 CT ANGIOGRAPHY CHEST W/CONTRAST Normal [facility], [facility]) MGon 02-22-2023 Magnesium [Mass/Vol] 1.9 mg/dL Normal 1.8-2.4 [facility]) Comment on above: Performed By: #### C MP, ADIFF, ANEU, GFR, CBC, MG ####[address] [place], [place] [address] TOBRAMYCIN:SUSC:PT:ISOLATE:O RDQN:MICon 02-22-2023 Tobramycin KURT [Susc] >100,000 cfu/ml Pseudomonas aeruginosa 50,000 - 100,000 cfu/ml Opal parapsilosis Contact Microbiology within 72 hours if further identification is indicated ([id number]). [employer] counts from a single urine are equivocal in determining infection vs. colonization of yeast. Multiple cultures at least 24 hours apart may be helpful in differentiating colonization from infection. [facility] Tobramycin KURT [Susc]on 01-28 Opal parapsilosis Opal parapsilosis [facility] Pseudomonas aeruginosa Pseudomonas aeruginosa [facility] .Auto Diffon 02-21-2023 Basophil, Absolute 0.1 10 3/mcL Normal 0.0-0.2 [facility] ([place]) Comment on above: Performed By: #### A BECKY PEREZ MDW, DIMER, CBC ####[address] [place], [place] [address] Basophils/100 WBC (Bld) 1.0 % Normal 0.0-2.5 A [facility] ([place]) Comment on above: Performed By: #### A BECKY PEREZ MDW, DIMER, CBC ####[address] [place], [place] [address] Eosinophil, Absolute 0.1 10 3/mcL Normal 0.0-0.4 [facility] ([place]) Comment on above: Performed By: #### A BECKY PEREZ MDW, DIMER, CBC ####[address] [place], [place] [address] Eosinophils/100 WBC (Bld) 0.7 % Normal 0.0-7.0 [facility] ([place]) Comment on above: Performed By: #### A BECKY PEREZ MDW, DIMER, CBC ####[address] [place], [place] [address] Lymphocyte, Absolute 2.0 10 3/mcL Normal 0.8-3.9 [facility] ([place]) Comment on above: Performed By: #### A BECKY PEREZ MDW, DIMER, CBC ####[address] [place], [place] [address] Lymphocytes/100 WBC (Bld) 18.1 % Normal 10.0-50.0 [facility] ([place]) Comment on above: Performed By: #### A BECKY PEREZ MDW, DIMER, CBC ####[address] [place], [place] [address] Monocyte, Absolute 1.1 10 3/mcL High 0.2-1.0 [facility] ([place]) Comment on above: Performed By: #### A BECKY PEREZ MDW, DIMER, CBC ####[address] [place], [place] [address] Monocytes/100 WBC (Bld) 10.1 % Normal 1.7-13.0 A [facility] ([place]) Comment on above: Performed By: #### A BECKY PEREZ MDW, DIMER, CBC ####[address] [place], [place] [address] Neutrophils/100 WBC (Bld) 70.1 % Normal 37.0-80.0 [facility] ([place]) Comment on above: Performed By: #### A BECKY PEREZ MDW, DIMER, CBC ####[address] [place], [place] [address] .GFRon 02-21-2023 GFR 77 ml/min/1.73sqm Normal [facility] ([place]) Comment on above: Result Comment: GFR Population mean for , Non- Americans Ages 20-29 = 116 mL/min/1.73 sq.m. Ages 30-39 = 107 mL/min/1.73 sq.m. Ages 40-49 = 99 mL/min/1.73 sq.m. Ages 50-59 = 93 mL/min/1.73 sq.m. Ages 60-69 = 85 mL/min/1.73 sq.m. Ages 70+ = 75 mL/min/1.73 sq.m.Chronic Kidney Disease: Less than 60 mL/min/1.73 square metersEnd Stage Renal Disease: Less than 15 mL/min/1.73 square meters Performed By: #### T ROPHS, LIP, CMP, GFR, PBNP ####[address] [place], [place] [address] GFR Non- 63 ml/min/1.73sqm Normal [facility] ([place]) Comment on above: Result Comment: GFR Population mean for , Non- Americans Ages 20-29 = 116 mL/min/1.73 sq.m. Ages 30-39 = 107 mL/min/1.73 sq.m. Ages 40-49 = 99 mL/min/1.73 sq.m. Ages 50-59 = 93 mL/min/1.73 sq.m. Ages 60-69 = 85 mL/min/1.73 sq.m. Ages 70+ = 75 mL/min/1.73 sq.m.Chronic Kidney Disease: Less than 60 mL/min/1.73 square metersEnd Stage Renal Disease: Less than 15 mL/min/1.73 square meters Performed By: #### T ROPHS, LIP, CMP, GFR, PBNP ####[address] [place] [id number] .MDWon 02-21-2023 Monocyte Distribution Width 24.70 High 0.00-20.00 [facility] ([place]) Comment on above: Result Comment: For adults in ED, MDW>20.0 may be associated with a higher risk of sepsis during the first 12hrs of hospital admission Performed By: #### A BECKY PEREZ MDW, DIMER, CBC ####[address] [place] [id number] .NEUABSon 02-21-2023 Neutrophil, Absolute 7.8 10 3/mcL High 2.9-6.2 [facility] ([place]) Comment on above: Performed By: #### A BECKY PEREZ MDW, DIMER, CBC ####[address] [place] [id number] .Urinalysis Microscopic (AO) on 02-21-2023 UA Bacteria 1+ /hpf Abnormal [facility] ([place]) Comment on above: Performed By: #### U A, UAMICAO ####[address] [id number] UA RBC 10-15 Abnormal None Seen [facility] ([place]) Comment on above: Performed By: #### U A, UAMICAO ####[address] [id number] UA Squam Epithelial 0-5 Abnormal None Seen [facility] ([place]) Comment on above: Performed By: #### U A, UAMICAO ####[address] [id number] UA WBC LOADED Abnormal None Seen [facility] ([place]) Comment on above: Performed By: #### U A, UAMICAO ####[address] [address] UA Yeast 1+ /hpf Abnormal [facility] ([place]) Comment on above: Performed By: #### U JAMILA MorrowAO ####[address] [place], [place] [address] CBCon 02-21-2023 Erythrocyte distribution width (RBC) [Ratio] 14.4 % Normal 11.5-14.5 [facility] ([place]) Comment on above: Performed By: #### A BECKY PEREZ MDW, DIMER, CBC ####[address] [place], [place] [address] Hematocrit (Bld) [Volume fraction] 40.8 % Normal 37.0-47.0 [facility] ([place]) Comment on above: Performed By: #### A BECKY PEREZ MDW, DIMER, CBC ####[address] [place], [place] [address] Hgb 13.5 G/dL Normal 12.0-16.0 [facility] ([place]) Comment on above: Performed By: #### A BECKY PEREZ MDW, DIMER, CBC ####[address] [place], [place] [address] MCH (RBC) [Entitic mass] 28.9 pg Normal 27.0-31.2 [facility] ([place]) Comment on above: Performed By: #### A BECKY PEREZ MDW, DIMER, CBC ####[address] [place], [place] [address] MCHC 33.0 G/dL Normal 33.0-37.0 [facility] ([place]) Comment on above: Performed By: #### A BECKY PEREZ MDW, DIMER, CBC ####[address] [place], [place] [address] MCV (RBC) [Entitic vol] 87.4 fL Normal 80.0-94.0 A [facility] ([place]) Comment on above: Performed By: #### A BECKY PEREZ MDW, DIMER, CBC ####[address] [place], [place] [address] Platelet 219 10 3/mcL Normal 130-400 [facility] ([place]) Comment on above: Performed By: #### A BECKY PEREZ MDW, DIMER, CBC ####[address] [place], [place] [address] Platelet mean volume (Bld) [Entitic vol] 8.6 fL Normal 7.4-10.4 [facility] ([place]) Comment on above: Performed By: #### A BECKY PEREZ MDW, DIMER, CBC ####[address] [place], [place] [address] RBC 4.67 10 6/mcL Normal 4.20-5.40 [facility] ([place]) Comment on above: Performed By: #### A BECKY PEREZ MDW, DIMER, CBC ####[address] [place], [place] [address] WBC 11.1 10 3/mcL High 4.6-10.8 [facility] ([place]) Comment on above: Performed By: #### A BECKY PEREZ MDW, DIMER, CBC ####[address] [place], [place] [address] CMPon 02-21-2023 Albumin Level 3.8 G/dL Normal 3.5-5.0 [facility] ([place]) Comment on above: Performed By: #### T LASHELL, LIP, CMP, GFR, PBNP ####[address] [place], [place] [address] Albumin/Globulin [Mass ratio] 0.9 {ratio} Low 1.1-2.5 [facility] ([place]) Comment on above: Performed By: #### T LASHELL, LIP, CMP, GFR, PBNP ####[address] [place], [place] [address] ALP [Catalytic activity/Vol] 83 U/L Normal 40-135 [facility] ([place]) Comment on above: Performed By: #### T LASHELL, LIP, CMP, GFR, PBNP ####[address] [place], [place] [address] ALT [Catalytic activity/Vol] 38 U/L Normal 14-59 [facility] ([place]) Comment on above: Performed By: #### T ROPHS, LIP, CMP, GFR, PBNP ####[address] [place], [place] [address] AST [Catalytic activity/Vol] 25 U/L Normal 10-40 [facility] ([place]) Comment on above: Performed By: #### T ROPHS, LIP, CMP, GFR, PBNP ####[address] [place], [place] [address] Bili Total 0.4 mg/dL Normal 0.2-1.0 [facility] ([place]) Comment on above: Result Comment: Use of this assay is not recommended for patients undergoing treatment with eltrombopag due to the potential for falsely elevated results. Performed By: #### T ROPHS, LIP, CMP, GFR, PBNP ####[address] [place], [place] [address] BUN/Creatinine Ratio 13 ratio Normal 7-27 [facility] ([place]) Comment on above: Performed By: #### T ROPHS, LIP, CMP, GFR, PBNP ####[address] [place], [place] [address] Calcium [Mass/Vol] 9.0 mg/dL Normal 8.4-10.2 [facility] ([place]) Comment on above: Performed By: #### T ROPHS, LIP, CMP, GFR, PBNP ####[address] [place], [place] [address] Chloride [Moles/Vol] 99 mmol/L Normal 98-107 [facility] ([place]) Comment on above: Performed By: #### T ROPHS, LIP, CMP, GFR, PBNP ####[address] [place], [place] [address] CO2 [Moles/Vol] 26 mmol/L Normal 22-29 [facility] ([place]) Comment on above: Performed By: #### T ROPHS, LIP, CMP, GFR, PBNP ####[address] [place], [place] [address] Creatinine [Mass/Vol] 0.97 mg/dL Normal 0.55-1.02 [facility] ([place]) Comment on above: Performed By: #### T ROPTONIA, LIP, CMP, GFR, PBNP ####[address] [place], [place] [address] Electrolyte Balance 10.0 mEq/L Normal 4.0-15.0 [facility] ([place]) Comment on above: Performed By: #### T ROPHS, LIP, CMP, GFR, PBNP ####[address] [place], [place] [address] Globulin 4.1 G/dL Normal [facility] ([place]) Comment on above: Performed By: #### T LASHELL, LIP, CMP, GFR, PBNP ####[address] [place], [place] [address] Glucose [Mass/Vol] 214 mg/dL High 70-105 [facility] ([place]) Comment on above: Performed By: #### T LASHELL, LIP, CMP, GFR, PBNP ####[address] [place], [place] [address] Potassium [Moles/Vol] 4.1 mmol/L Normal 3.5-5.1 [facility] ([place]) Comment on above: Performed By: #### T ROPTONIA, LIP, CMP, GFR, PBNP ####[address] [place], [place] [address] Sodium [Moles/Vol] 135 mmol/L Low 136-145 [facility] ([place]) Comment on above: Performed By: #### T ROPHS, LIP, CMP, GFR, PBNP ####[address] [place], [place] [address] Total Protein 7.9 G/dL Normal 6.4-8.2 [facility] ([place]) Comment on above: Performed By: #### T ROPHS, LIP, CMP, GFR, PBNP ####[address] [place], [place] [address] Urea nitrogen [Mass/Vol] 13 mg/dL Normal 7-18 [facility] ([place]) Comment on above: Performed By: #### T ROPHS, LIP, CMP, GFR, PBNP ####[address] [place], [place] [address] DIMERon 02-21-2023 D-Dimer 766 ng/mL D-DU High 0-230 [facility] ([place]) Comment on above: Result Comment: Resu lts reported in D-DU ng/mL.Positive for D-dimer. A positive D-Dimer may occur in the following:DVT, PE, DIC, Trauma, Cancer, Sepsis, , Rheumatoid arthritis, Myocardial infarction and Cirrhosis. The presence of Rheumatoid Factor and HAMA (human mouse antibody) produces an overestimation of test results.The result of the D-Dimer test should be evaluated in the context of all the clinical and laboratory data available.In those instances where the laboratory result does not agree with the clinical evaluation, additional tests shouldbe performed accordingly.If the D-Dimer result is used to exclude DVT or PE, the recommended cutoff value is less than 230 ng/mL. The D-Dimerresult should not be used alone to rule in DVT/PE, but should be used in conjunction with a clinical pretest probability (PTP)assessment model to exclude venous thromboembolism (VTE) in outpatients suspected of deep venous thrombosis (DVT) and pulmonary embolism (PE). Performed By: #### A BECKY PEREZ MDW, DIMER, CBC ####[address] [place], [place] [address] LABORATORYOrdered By: Sylvia Fletcher on 02-21-2023 Appearance (U) Slightly Cloudy *ABN* (02/21/23 7:30 PM) Invalid Interpretation Code Clear AO Auto Urine SS Bacteria LM.HPF (Urine sed) [#/Area] 1 /[HPF] Invalid Interpretation Code AO Auto Urine SS Bilirubin Ql (U) Negative (02/21/23 7:30 PM) Invalid Interpretation Code Negative AO Auto Urine SS Color (U) Yellow (02/21/23 7:30 PM) Invalid Interpretation Code AO Auto Urine SS Glucose Test strip (U) [Mass/Vol] Negative Invalid Interpretation Code Negative AO Auto Urine SS Hemoglobin Auto test strip (U) [Mass/Vol] Small *ABN* (02/21/23 7:30 PM) Invalid Interpretation Code Negative AO Auto Urine SS Ketones Ql (U) Negative Invalid Interpretation Code Negative AO Auto Urine SS UA Leuk Est Large *ABN* (02/21/23 7:30 PM) Invalid Interpretation Code Negative AO Auto Urine SS UA Nitrite Negative (02/21/23 7:30 PM) Invalid Interpretation Code Negative AO Auto Urine SS UA pH 6.0 (02/21/23 7:30 PM) Invalid Interpretation Code 5.0 - 8.0 AO Auto Urine SS UA Protein 100 mg/dL Invalid Interpretation Code Negative AO Auto Urine SS UA RBC 10-15 /HPF Invalid Interpretation Code None Seen AO Auto Urine SS UA Spec Grav 1.025 (02/21/23 7:30 PM) Invalid Interpretation Code 1.015-1.02 5 AO Auto Urine SS UA Specimen Type Clean Catch (02/21/23 7:30 PM) Invalid Interpretation Code AO Auto Urine SS UA Squam Epithelial 0-5 /HPF Invalid Interpretation Code None Seen AO Auto Urine SS UA Urobilinogen 0.2 E.U./dL Invalid Interpretation Code 0.2-1.0 AO Auto Urine SS WBC LM.HPF (Urine sed) [#/Area] LOADED /HPF Invalid Interpretation Code None Seen AO Auto Urine SS Yeast LM.HPF (Urine sed) [#/Area] 1 /[HPF] Invalid Interpretation Code AO Auto Urine SS LABORATORYOrdered By: Dl Gonzalez on 02-21-2023 Fibrin D-dimer DDU (PPP) [Mass/Vol] 766 ng/mL D-DU Invalid Interpretation Code 0 - 230 ng/mL D-DU AO [employer] SS Comment on above: Result Comment: Resu lts reported in D-DU ng/mL. Positive for D-dimer. A positive D-Dimer may occur in the following: DVT, PE, DIC, Trauma, Cancer, Sepsis, , Rheumatoid arthritis, Myocardial infarction and Cirrhosis. The presence of Rheumatoid Factor and HAMA (human mouse antibody) produces an overestimation of test results. Interpretive Data: T he result of the D-Dimer test should be evaluated in the context of all the clinical and laboratory data available. In those instances where the laboratory result does not agree with the clinical evaluation, additional tests should be performed accordingly. If the D-Dimer result is used to exclude DVT or PE, the recommended cutoff value is less than 230 ng/mL. The D-Dimer result should not be used alone to rule in DVT/PE, but should be used in conjunction with a clinical pretest probability (PTP)assessment model to exclude venous thromboembolism (VTE) in outpatients suspected of deep venous thrombosis (DVT) and pulmonary embolism (PE). LABORATORYOrdered By: SYSTEM SYSTEM on 02-21-2023 Lipase [Catalytic activity/Vol] 39 U/L Invalid Interpretation Code 16 - 77 U/L AO ADM SS Monocyte distribution width Auto (Bld) [Entitic vol] 24.70 1 Invalid Interpretation Code 0.00 - 20.00 AO Workflow SS Comment on above: Result Comment: For adults in ED, MDW>20.0 may be associated with a higher risk of sepsis during the first 12hrs of hospital admission Natriuretic peptide.B prohormone N-Terminal [Mass/Vol] 17 pg/mL Invalid Interpretation Code 0 - 125 pg/mL AO ADM SS Comment on above: Interpretive Data: N T-proBNP results of less than 300 pg/mL effectively rules out acute congestive heart failure with 99% negative predictive value. Troponin I.cardiac DL <= 0.01 ng/mL [Mass/Vol] ng/L Invalid Interpretation Code 0.0 - 51.4 ng/L AO ADM SS LIPon 02-21-2023 Lipase Level 39 U/L Normal 16-77 [facility] ([place]) Comment on above: Performed By: #### T LASHELL, LIP, CMP, GFR, PBNP ####[address] [place], [place] [address] PBNPon 02-21-2023 Natriuretic peptide B (Bld) [Mass/Vol] 17 pg/mL Normal 0-125 [facility] ([place]) Comment on above: Result Comment: NT-p roBNP results of less than 300 pg/mL effectivelyrules out acute congestive heart failure with 99% negative predictive value. Performed By: #### T ROPHS, LIP, CMP, GFR, PBNP ####[address] [place], [place] [address] TROPHSon 02-21-2023 Troponin I High Sensitivity <4.0 Normal 0.0-51.4 [facility] ([place]) Comment on above: Performed By: #### T LASHELL, LIP, CMP, GFR, PBNP ####[address] [place], [place] [address] UAon 02-21-2023 Color (U) Yellow Normal [facility] ([place]) Comment on above: Performed By: #### U A, UAMICAO ####[address] [place], [place] [address] Glucose (U) [Mass/Vol] Negative Normal Negative [facility] ([place]) Comment on above: Performed By: #### U A, UAMICAO ####[address] [place] [address] Ketones Ql (U) Negative Normal Negative [facility] ([place]) Comment on above: Performed By: #### U A, UAMICAO ####[address] [place] [address] UA Appear Slightly Cloudy Abnormal Clear [facility] ([place]) Comment on above: Performed By: #### U A, UAMICAO ####[address] [place], [place] [address] UA Blood Small Abnormal Negative [facility] ([place]) Comment on above: Performed By: #### U A, UAMICAO ####[address] [place], [place] [address] UA Leuk Est Large Abnormal Negative [facility] ([place]) Comment on above: Performed By: #### U A, UAMICAO ####[address] [place], [place] [address] UA Nitrite Negative Normal Negative [facility] ([place]) Comment on above: Performed By: #### U A, UAMICAO ####[address] [place], [place] [address] UA pH 6.0 Normal 5.0 - 8.0 [facility] ([place]) Comment on above: Performed By: #### U A, UAMICAO ####[address] [place] [id number] UA Protein 100 mg/dL Abnormal Negative [facility] ([place]) Comment on above: Performed By: #### U A, UAMICAO ####[address] [place], [place] [address] UA Spec Grav 1.025 Normal 1.015-1.02 5 [facility] ([place]) Comment on above: Performed By: #### U A, UAMICAO ####[address] [place], [place] [address] UA Specimen Type Clean Catch Normal [facility] ([place]) Comment on above: Performed By: #### U A, UAMICAO ####[address] [place], [place] [address] UA Urobilinogen 0.2 E.U./dL Normal 0.2-1.0 [facility] ([place]) Comment on above: Performed By: #### U A, UAMICAO ####[address] [place], [place] [address] Urobilinogen (U) [Mass/Vol] Negative Normal Negative [facility] ([place]) Comment on above: Performed By: #### U A, UAMICAO ####[address] [place], [place] [address] XR CHEST 1 VIEWon 02-21-2023 XR CHEST 1 VIEW Normal [facility] ([place]) Absolute lymphocyte countOrd ered By: Dre Deal on 02-02-2023 Lymphocytes Auto (Unsp spec) [#/Vol] 1.73 10*3/uL 0.83-4.51 [facility] Basophil percentageOrdered B y: Dre Deal on 02-02-2023 Basophil percentage 50-100 SEEN /hpf 0-5 [facility] Basophils/100 WBC (Bld) 0.3 % 0-1 [facility] Chloride [Moles/Vol] 103 mmol/L 98-[address] [facility] Eosinophils/100 WBC (Bld) 0.3 % 0-5 [facility] Glucose [Mass/Vol] 202 mg/dL 74-106 [facility] Comment on above: Glucose result great er than or equal to 200 mg/dLsuggests DIABETES MELLITUS per A.D.A. criteria. Lactate [Moles/Vol] 1.2 mmol/L 0.4-2.0 [facility] Neutrophils (Bld) [#/Vol] 14.1 10*3/uL 2.0-7.7 [facility] Neutrophils/100 WBC (Bld) 81.9 % 47-70 [facility] Potassium [Moles/Vol] 4.0 mmol/L 3.5-5.1 [facility] [place] Sodium [Moles/Vol] 132 mmol/L 136-145 [facility] WBC (Bld) [#/Vol] 17.2 10*3/uL 4.4-11.0 [facility] Bilirubin Test strip Ql (U)O rdered By: Dre Deal on 02-02-2023 Bilirubin Ql (U) Negative Negative [facility] Blood erythrocytes count (nu mber/volume)Ordered By: Dre Deal on 02-02-2023 RBC (Bld) [#/Vol] 4.60 10*6/uL 4.2-5.4 [facility] Blood hemoglobin measurement (mass/volume)Ordered By: Dre Deal on 02-02-2023 Hemoglobin (Bld) [Mass/Vol] 13.3 g/dL 12.0-15.0 [facility] Blood lymphocytes/100 leukoc ytesOrdered By: Dre Deal on 02-02-2023 Lymphocytes/100 WBC (Bld) 10.0 % 19-41 [facility] Blood monocytes/100 leukocyt esOrdered By: Dre Deal on 02-02-2023 Monocytes/100 WBC (Bld) 6.9 % 0-10 [facility] Blood platelet mean volumeOr dered By: Dre Deal on 02-02-2023 Platelet mean volume (Bld) [Entitic vol] 10.4 fL 6.2-12.0 [facility] Culture, urineOrdered By: Dominic Deal on 02-02-2023 Bacteria identified Cx Nom (U) Klebsiella pneumoniae sp pneum [facility] Determination of erythrocyte mean corpuscular volume (MCV)Ordered By: Dre Deal on 02-02-2023 MCV (RBC) [Entitic vol] 88.7 fL 81-99 [facility] Hematocrit Auto (Bld) [Volum e fraction]Ordered By: Dre Deal on 02-02-2023 Hematocrit (Bld) [Volume fraction] 40.8 % 37-47 [facility] Ketones Test strip Ql (U)Ord ered By: Dre Deal on 02-02-2023 Ketones Ql (U) Negative Negative [facility] Laboratory - Chemistry and C hemistry - challengeOrdered By: Dre Deal on 02-02-2023 CO2 [Moles/Vol] 23.0 mmol/L 21.0-32.0 [facility] Urea nitrogen/Creatinine [Mass ratio] 13.9 mg/mg 10-20 [facility] Laboratory - Hematology and Cell countsOrdered By: Dre Deal on 02-02-2023 Erythrocyte distribution width (RBC) [Entitic vol] 43.2 fL 35.1-43.9 [facility] Erythrocyte distribution width (RBC) [Ratio] 13.4 % 11.6-14.6 [facility] Immature granulocytes/100 WBC (Bld) 0.600 % 0.0-0.9 [facility] Comment on above: IG% - Immature Granu locytes (promyelocytes, myelocytes and metamyelocytes) > 1% indicates that a LEFT SHIFT is Present. MCH (RBC) [Entitic mass] 28.9 pg 27.0-32.0 [facility] Nucleated RBC/100 WBC (Bld) [Ratio] 0 % 0-5 [facility] MCHC Auto (RBC) [Mass/Vol]Or dered By: rDe Deal on 02-02-2023 MCHC (RBC) [Mass/Vol] 32.6 g/dL 32-36 [facility] [place] Mucus LM Ql (Urine sed)Order ed By: Dre Deal on 02-02-2023 Mucus Ql (Urine sed) 0 SEEN /hpf [facility] [place] Nitrite Test strip Ql (U)Ord ered By: Dre Deal on 02-02-2023 Nitrite Ql (U) Negative Negative [facility] No Panel InformationOrdered By: Dre Deal on 02-02-2023 Estimated GFR (MDRD) Amer 78 mL/min >60 [facility] Comment on above: GFR Calc Estimated GFR (MDRD) Non-Af Amer 64 mL/min >60 [facility] Comment on above: Non- GFR Calc Platelets bldOrdered By: Dre Deal on 02-02-2023 Platelets (Bld) [#/Vol] 201 10*3/uL 150-450 [facility] Protein Test strip Ql (U)Ord ered By: Dre Deal on 02-02-2023 Protein Ql (U) 100 mg/dl Negative [facility] Serum or plasma calcium thi urement (mass/volume)Ordered By: Dre Deal on 02-02-2023 Calcium [Mass/Vol] 9.3 mg/dL 8.5-10.1 [facility] Serum or plasma creatinine m easurement (mass/volume)Ordered By: Dre Deal on 02-02-2023 Creatinine [Mass/Vol] 1.01 mg/dL 0.55-1.02 [facility] [place] Comment on above: The validity of the calculated GFR & GFRAA in patients over 70 years has not been determined. Clinical correlation is essential. Serum or plasma urea nitroge n measurement (mass/volume)Ordered By: Dre Deal on 02-02-2023 Urea nitrogen [Mass/Vol] 14 mg/dL 7-18 [facility] Squamous epithelial cells de tection in urine sediment by light microscopyOrdered By: Dre Deal on 02-02-2023 Epithelial cells.squamous LM Ql (Urine sed) 0-5 SEEN /hpf 5-10 [facility] Thin prep Papanicolaou smear with manual screeningOrdered By: Dre Deal on 02-02-2023 Thin prep Papanicolaou smear with manual screening 6 5-15 [facility] Urine blood detectionOrdered By: Dre Deal on 02-02-2023 RBC Ql (U) 250 /ul Negative [facility] RBC Ql (U) 10-25 SEEN /hpf 0-5 [facility] Urine clarityOrdered By: Dre Deal on 02-02-2023 Clarity (U) Cloudy Clear [facility] Urine color determinationOrd ered By: Dre Deal on 02-02-2023 Color (U) Yellow Yellow [facility] Urine glucose detectionOrder ed By: Dre Deal on 02-02-2023 Glucose Ql (U) Normal mg/dl Normal [facility] Urine leukocyte esterase det ection by dipstickOrdered By: Dre Deal on 02-02-2023 Leukocyte esterase Test strip Ql (U) 500 /ul Negative [facility] Urine pHOrdered By: Dre zimmerman on 02-02-2023 pH (U) 6.0 [pH] 5.0 - 8.0 [facility] Urine sediment bacteria coun t by microscopy (number/high power field)Ordered By: Dreelsie Deal on 02-02-2023 Bacteria LM.HPF (Urine sed) [#/Area] 0 /[HPF] None Seen [facility] Urine specific gravity measu rementOrdered By: [facility] Specific gravity (U) [Rel density] 1.015 1.002-1.03 0 [facility] Urobilinogen Auto test strip Ql (U)Or[facility] Urobilinogen Ql (U) Normal mg/dl Normal [facility] [place] HbA1c (Bld)on 01-16-2023 Average glucose Estimated from glycated hemoglobin (Bld) [Mass/Vol] 275 mg/dL [facility] HbA1c (Bld) [Mass fraction] 11.2 % High 4.3 - 5.6 % [facility] EMERGENCY REPORTon 3 EMERGENCY REPORT [facility] EMERGENCY ROOM REPORT NAME ACCOUNT SEX AGE ADMIT DISCHARGE PT MED. RECORD# NUMBER DATE DATE TYPE UVALDO [id number] F 42 12/18/22 3 DEBBY [id number] ROOM: ER DATE OF : 1980 DICTATING PHYSICIAN: Andrew Johansen ADDENDUM EMERGENCY DEPARTMENT COURSE AND TREATMENT: I assumed care of this patient upon my arrival. We were awaiting disposition. We talked to [facility] but they do not have urology coverage through the weekend and were thus unable to take her. That being the case, checked elsewhere with [facility] as they are [facility] associated. DIAGNOSES: 1. History of fever with urinary tract infection and pyelonephritis. 2. Multiple other comorbidities. PLAN/DISPOSITION: Did talk to a Dr. Bonilla there and he did accept the patient. She has been stable in the ED in the meantime. Dictated By: Andrew Johansen MD 12/18/22 09:36 JOB #: [id number] Transcribed By: pablo 12/18/22 10:01 Electronically signed by: ZAINAB Johansen M.D. 12/29/22 07:25 Page 1 of 1 UVALDODEBBY CORRIGAN Emergency Room Report Normal [facility] Basic metabolic 2000 panelon 12-23-2022 Anion gap [Moles/Vol] 9 mmol/L Normal 5-16 [facility] Comment on above: Order Comment: Speci men Type: BLOOD SPECIMEN Ordering Facility: [facility] Address: [address] [place] [address] Performed By: #### 2 4323-8 #### [facility] CLIA [id number] [address] [place] [address] [place] Calcium [Mass/Vol] 8.8 mg/dL Normal 8.5-10.5 [facility] Comment on above: Order Comment: Speci men Type: BLOOD SPECIMEN Ordering Facility: [facility] Address: [address] [address] Performed By: #### 2 4323-8 #### [facility] CLIA [id number] [address] [place] [address] [place] Chloride [Moles/Vol] 108 mmol/L High 98-107 [facility] Comment on above: Order Comment: Speci men Type: BLOOD SPECIMEN Ordering Facility: [facility] Address: [address] [place] [address] Performed By: #### 2 4323-8 #### [facility] CLIA [id number] [address] [place] [address] [place] CO2 [Moles/Vol] 25 mmol/L Normal 21-32 [facility] Comment on above: Order Comment: Speci men Type: BLOOD SPECIMEN Ordering Facility: [facility] Address: [address] [place] [address] Performed By: #### 2 4323-8 #### [facility] CLIA [id number] [address] [place] [address] [place] Creatinine [Mass/Vol] 0.87 mg/dL Normal 0.51-0.95 [facility] Comment on above: Order Comment: Speci men Type: BLOOD SPECIMEN Ordering Facility: [facility] Address: [address] [place] [address] Result Comment: Janel ents receiving either N-Acetylcysteine (NAC) or Metamizole prior to venipuncture, may have falsely depressed results. Performed By: #### 2 4323-8 #### [facility] CLIA [id number] [address] [place] [address] OF NAE ESTIMATED GLOMERULAR FILTRATION RATE 86 mL/min/1.73m??? Normal >=60 [facility] Comment on above: Order Comment: David pham Type: BLOOD SPECIMEN Ordering Facility: [facility] Address: [address] [place] [address] Result Comment: Eliza mated Glomerular Filtration Rate (eGFR) is calculated using the 2020 CKD-EPI creatinine equation. This equation utilizes serum creatinine, sex, and age as parameters. The creatinine assay has traceable calibration to isotope dilution-mass spectrometry. Refer to KDIGO guidelines for clinical interpretation. In patients with unstable renal function, e.g. those with acute kidney injury, the eGFR may not accurately reflect actual GFR. Performed By: #### 2 4323-8 #### [facility] CLIA [id number] [address] [place] [address] OF [place]E Glucose [Mass/Vol] 91 mg/dL Normal 70-100 [facility] Comment on above: Order Comment: David pham Type: BLOOD SPECIMEN Ordering Facility: [facility] Address: [address] [place] [address] Result Comment: The [place] Diabetes Association (ADA) provides guidance for cutoff values for fasting glucose and random glucose. The ADA defines fasting as no caloric intake for at least 8 hours. Fasting plasma glucose results between 100 to 125 [...] Standards of Medical Care in Diabetes 2016, [place] [employer] Association. Diabetes Care. 2016.39(Suppl 1). Results may be falsely elevated after the administration of Sulfapyridine. Results may be falsely depressed after the administration of Sulfasalazine. Performed By: #### 2 4323-8 #### [facility] CLIA [id number] [address] [place] [address] [place] Potassium [Moles/Vol] 4.2 mmol/L Normal 3.5-5.1 [facility] Comment on above: Order Comment: Speci men Type: BLOOD SPECIMEN Ordering Facility: [facility] Address: [address] [place] [address] Performed By: #### 2 4323-8 #### [facility] CLIA [id number] [address] [place] [address] [place] Sodium [Moles/Vol] 142 mmol/L Normal 136-145 [facility] Comment on above: Order Comment: Speci men Type: BLOOD SPECIMEN Ordering Facility: [facility] Address: [address] [place] [address] Performed By: #### 2 4323-8 #### [facility] CLIA [id number] [address] [place] [address] [place] Urea nitrogen [Mass/Vol] 11 mg/dL Normal 7-26 [facility] Comment on above: Order Comment: Speci men Type: BLOOD SPECIMEN Ordering Facility: [facility] Address: [address] [place] [address] Performed By: #### 2 4323-8 #### [facility] CLIA [id number] [address] [place] [address] [place] CBC W Auto Differential pane l (Bld)on 12-23-2022 Basophils (Bld) [#/Vol] 0.06 10*3/uL Normal <0.11 [facility] Comment on above: Order Comment: Speci men Type: BLOOD SPECIMEN Ordering Facility: [facility] Address: [address] [place] [address] Performed By: #### 2 4323-8 #### [facility] CLIA [id number] [address] [place] [address] [place] Basophils/100 WBC (Bld) 0.5 % Normal [facility] Comment on above: Order Comment: Speci men Type: BLOOD SPECIMEN Ordering Facility: [facility] Address: [address] [address] Performed By: #### 2 4323-8 #### [facility] CLIA [id number] [address] [place] [address] [place] [facility] OF [place]E Differential cell count method Nom (Bld) Auto Normal [facility] Comment on above: Order Comment: Speci men Type: BLOOD SPECIMEN Ordering Facility: [facility] Address: [address] [address] Performed By: #### 2 4323-8 #### [facility] CLIA [id number] [address] [place] [address] [place] Eosinophils (Bld) [#/Vol] 0.22 10*3/uL Normal <0.46 [facility] Comment on above: Order Comment: Speci men Type: BLOOD SPECIMEN Ordering Facility: [facility] Address: [address] [address] Performed By: #### 2 4323-8 #### [facility] CLIA [id number] [address] [place] [address] [place] Eosinophils/100 WBC (Bld) 2.0 % Normal [facility] Comment on above: Order Comment: Speci men Type: BLOOD SPECIMEN Ordering Facility: [facility] Address: [address] [place] [address] Performed By: #### 2 4323-8 #### [facility] CLIA [id number] [address] [place] [address] [place]E Erythrocyte distribution width (RBC) [Ratio] 14.0 % Normal 11.5-15.0 [facility] Comment on above: Order Comment: Speci men Type: BLOOD SPECIMEN Ordering Facility: [facility] Address: [address] [place] [address] Performed By: #### 2 4323-8 #### [facility] CLIA [id number] [address] [place] [address] [place] Hematocrit (Bld) [Volume fraction] 33.6 % Low 36.0-46.0 [facility] Comment on above: Order Comment: Speci men Type: BLOOD SPECIMEN Ordering Facility: [facility] Address: [address] [address] Performed By: #### 2 4323-8 #### [facility] CLIA [id number] [address] [place] [address] [place] Hemoglobin (Bld) [Mass/Vol] 11.2 g/dL Low 11.5-15.5 [facility] Comment on above: Order Comment: Speci men Type: BLOOD SPECIMEN Ordering Facility: [facility] Address: [address] [address] Performed By: #### 2 4323-8 #### [facility] CLIA [id number] [address] [place] [address] [place] Immature granulocytes (Bld) [#/Vol] 0.10 10*3/uL High <0.10 [facility] Comment on above: Order Comment: Speci men Type: BLOOD SPECIMEN Ordering Facility: [facility] Address: [address] [address] Performed By: #### 2 4323-8 #### [facility] CLIA [id number] [address] [place] [address] [place] Immature granulocytes/100 WBC (Bld) 0.9 % Normal [facility] Comment on above: Order Comment: Speci men Type: BLOOD SPECIMEN Ordering Facility: [facility] Address: [address] Performed By: #### 2 4323-8 #### [facility] CLIA [id number] [address] [place] [address] [place] Lymphocytes (Bld) [#/Vol] 2.96 10*3/uL Normal 1.00-4.00 [facility] Comment on above: Order Comment: Speci men Type: BLOOD SPECIMEN Ordering Facility: [facility] Address: [address] [address] Performed By: #### 2 4323-8 #### [facility] CLIA [id number] [address] [place] [address] [place] Lymphocytes/100 WBC (Bld) 27.0 % Normal [facility] Comment on above: Order Comment: Speci men Type: BLOOD SPECIMEN Ordering Facility: [facility] Address: [address] [place] [address] Performed By: #### 2 4323-8 #### [facility] CLIA [id number] [address] [place] [address] OF [facility] MCH (RBC) [Entitic mass] 29.0 pg Normal 26.0-34.0 [facility] Comment on above: Order Comment: Speci men Type: BLOOD SPECIMEN Ordering Facility: [facility] Address: [address] [place] [address] Performed By: #### 2 4323-8 #### [facility] CLIA [id number] [address] [place] [address] [place] MCHC (RBC) [Mass/Vol] 33.3 g/dL Normal 30.5-36.0 [facility] Comment on above: Order Comment: Speci men Type: BLOOD SPECIMEN Ordering Facility: [facility] Address: [address] [place] [address] Performed By: #### 2 4323-8 #### [facility] CLIA [id number] [address] [place] [address] [place] MCV (RBC) [Entitic vol] 87.0 fL Normal 80.0-100.0 [facility] Comment on above: Order Comment: Speci men Type: BLOOD SPECIMEN Ordering Facility: [facility] Address: [address] [place] [address] Performed By: #### 2 4323-8 #### [facility] CLIA [id number] [address] [place] [address] OF NAE Monocytes (Bld) [#/Vol] 0.80 10*3/uL Normal <0.87 [facility] Comment on above: Order Comment: Speci men Type: BLOOD SPECIMEN Ordering Facility: [facility] Address: [address] [address] Performed By: #### 2 4323-8 #### [facility] CLIA [id number] [address] [place] [address] [place] Monocytes/100 WBC (Bld) 7.3 % Normal [facility] Comment on above: Order Comment: Speci men Type: BLOOD SPECIMEN Ordering Facility: [facility] Address: [address] [address] Performed By: #### 2 4323-8 #### [facility] CLIA [id number] [address] [place] [address] [place] Neutrophils (Bld) [#/Vol] 6.84 10*3/uL Normal 1.45-7.50 [facility] Comment on above: Order Comment: Speci men Type: BLOOD SPECIMEN Ordering Facility: [facility] Address: [address] [address] Performed By: #### 2 4323-8 #### [facility] CLIA [id number] [address] [place] [address] [place] Neutrophils/100 WBC (Bld) 62.3 % Normal [facility] Comment on above: Order Comment: Speci men Type: BLOOD SPECIMEN Ordering Facility: [facility] Address: [address] [address] Performed By: #### 2 4323-8 #### [facility] CLIA [id number] [address] [place] [address] [place] Nucleated RBC (Bld) [#/Vol] 10*3/uL Normal <0.01 [facility] Comment on above: Order Comment: Speci men Type: BLOOD SPECIMEN Ordering Facility: [facility] Address: [address] [place] [address] Performed By: #### 2 4323-8 #### [facility] CLIA [id number] [address] [place] [address] [place] Nucleated RBC/100 WBC (Bld) [Ratio] 0.0 /100 WBC Normal [facility] Comment on above: Order Comment: Speci men Type: BLOOD SPECIMEN Ordering Facility: [facility] Address: [address] [place] [address] Performed By: #### 2 4323-8 #### [facility] CLIA [id number] [address] [place] [address] [place] Platelet mean volume (Bld) [Entitic vol] 10.7 fL Normal 9.0-12.7 [facility] Comment on above: Order Comment: Speci men Type: BLOOD SPECIMEN Ordering Facility: [facility] Address: [address] [address] Performed By: #### 2 4323-8 #### [facility] CLIA [id number] [address] [place] [address] [place] Platelets (Bld) [#/Vol] 293 10*3/uL Normal 150-400 [facility] Comment on above: Order Comment: Speci men Type: BLOOD SPECIMEN Ordering Facility: [facility] Address: [address] Performed By: #### 2 4323-8 #### [facility] CLIA [id number] [address] [place] [address] [place] RBC (Bld) [#/Vol] 3.86 10*6/uL Low 3.90-5.20 [facility] Comment on above: Order Comment: Speci men Type: BLOOD SPECIMEN Ordering Facility: [facility] Address: [address] Performed By: #### 2 4323-8 #### [facility] CLIA [id number] [address] [place] [address] [place] WBC (Bld) [#/Vol] 10.98 10*3/uL Normal 3.70-11.00 [facility] Comment on above: Order Comment: Speci men Type: BLOOD SPECIMEN Ordering Facility: [facility] Address: [address] [place], [place] [address] Performed By: #### 2 4323-8 #### [facility] CLIA [id number] [address] [place] [address] [place] EMERGENCY REPORTon 3 EMERGENCY REPORT [facility] EMERGENCY ROOM REPORT NAME ACCOUNT SEX AGE ADMIT DISCHARGE PT MED. RECORD# NUMBER DATE DATE TYPE UVALDO [id number] F 42 12/18/22 12/18/22 3 DEBBY [id number] ROOM: ER DATE OF : 1980 DICTATING PHYSICIAN: Elizabeth Pedroza DATE OF SERVICE: December 18, 2022 CHIEF COMPLAINT: The patient comes to the Emergency Room with back pain. HISTORY OF PRESENT ILLNESS: She states it started this afternoon. She took Tylenol and Azo for it. She states she had a fever with that, she was nauseated but no vomiting. She states she has had this before and it has been associated with both urinary tract infections and kidney stones. PAST MEDICAL HISTORY: She states she is not . She states she is a diabetic. No history of cardiac disease. PAST SURGICAL HISTORY: She has had multiple surgeries in the past. She has had catheters and gallbladder surgery. 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 She states she has not had any problem with that. SOCIAL HISTORY: She does not smoke. No alcohol use. No drugs. She is not employed outside the home. Does not need a work excuse she states. REVIEW OF SYSTEMS: She also denies any chest pain, URI symptoms, cough, difficulty breathing. Just states she mostly has bilateral flank pain which started earlier in the day today and has continued to this time. She states the discomfort is worse to move, radiates to the anterior low abdomen. Tylenol did not relieve the discomfort at home. PHYSICAL EXAMINATION: She is seen in Room #7. On exam, her head is normocephalic. Neck is easily supple. HEENT examination is normal. She has no anterior posterior supraclavicular nodes. Her lungs are clear. There is no expiratory wheeze or rales or paradoxical chest motion. Her heart rate and rhythm are regular without murmur. Her abdomen is soft with vague CVA discomfort bilaterally. Extremities are not swollen, nontender. She has no rashes present. She is febrile on exam. Blood pressure is okay. DIAGNOSTIC DATA: Her lab test has an elevated white count, positive urine, and negative troponin and an elevated blood sugar. Her CT does not demonstrate any kidney stone obstruction. There are no other significant findings on her CT, acute Page 1 of 2 [facility]AILON Emergency Room Report DEBBY BAILON : 1980 findings that is. EKG rate of 83. Time was 0329 hours. There is no ectopy seen. No evidence of acute MRI or ischemia. EMERGENCY DEPARTMENT COURSE AND TREATMENT: She was given IV Dilaudid, which she can take with Zofran, and she felt better. She was given fluids. She was given antibiotics and her insurance does not allow her to be admitted here. We checked and she states she normally goes to [facility]. DIAGNOSIS: UTI, bilateral pyelonephritis, abdominal discomfort and a history of fever. PLAN/DISPOSITION: We called [facility] and they were full. So her care is going to be endorsed to Dr. Johansen at the change of shift. We are awaiting a call back from the [facility] where her family doctor, Dr. Brannon, practices for an admission to that location. Dictated By: Elizabeth Pedroza DO 12/19/22 09:02 JOB #: [id number] Transcribed By: snehal 12/19/22 17:25 Electronically signed by: E-SIGN ELIZABETH PEDROZA DO 12/23/22 19:51 Page 2 of 2 [facility]AIL[facility] Emergency Room Report Normal [facility] Magnesium [Mass/Vol] 1.7 mg/dL Normal 1.6-2.6 [facility] Comment on above: Order Comment: David pham Type: BLOOD SPECIMEN Ordering Facility: [facility] Address: [address] [place] [address] Performed By: #### 2 4323-8 #### [facility] CLIA [id number] [address] [place] [address] [place] Phosphate SerPl-mCncon 12-23 Phosphate [Mass/Vol] 4.6 mg/dL Normal 2.5-4.9 [facility] Comment on above: Order Comment: David pham Type: BLOOD SPECIMEN Ordering Facility: [facility] Address: [address] [address] Result Comment: Elev ated m-protein (paraprotein) levels in the serum may be exhibited in patients with monoclonal gammopathies, causing falsely elevated inorganic phosphorus results. Performed By: #### 3 2693-4 #### [facility] CLIA [id number] [address] [place] [address] [place] Basic metabolic 2000 panelon 12-22-2022 Anion gap [Moles/Vol] 11 mmol/L Normal 5-16 [facility] Comment on above: Order Comment: Speci men Type: BLOOD SPECIMEN Ordering Facility: [facility] Address: [address] [address] Performed By: #### 2 4323-8 #### [facility] CLIA [id number] [address] [place] [address] [place] Calcium [Mass/Vol] 8.7 mg/dL Normal 8.5-10.5 [facility] Comment on above: Order Comment: Speci men Type: BLOOD SPECIMEN Ordering Facility: [facility] Address: [address] [address] Performed By: #### 2 4323-8 #### [facility] CLIA [id number] [address] [place] [address] [place] Chloride [Moles/Vol] 110 mmol/L High 98-107 [facility] Comment on above: Order Comment: Speci men Type: BLOOD SPECIMEN Ordering Facility: [facility] Address: [address] [address] Performed By: #### 2 4323-8 #### [facility] CLIA [id number] [address] [place] [address] [place] CO2 [Moles/Vol] 21 mmol/L Normal 21-32 [facility] Comment on above: Order Comment: Speci men Type: BLOOD SPECIMEN Ordering Facility: [facility] Address: [address] [address] Performed By: #### 2 4323-8 #### [facility] CLIA [id number] [address] [place] [address] [place] Creatinine [Mass/Vol] 0.94 mg/dL Normal 0.51-0.95 [facility] Comment on above: Order Comment: David pham Type: BLOOD SPECIMEN Ordering Facility: [facility] Address: [address] [phone] Result Comment: Janel ents receiving either N-Acetylcysteine (NAC) or Metamizole prior to venipuncture, may have falsely depressed results. Performed By: #### 2 4323-8 #### [facility] CLIA [id number] [address] [place] [address] [place] ESTIMATED GLOMERULAR FILTRATION RATE 78 mL/min/1.73m??? Normal >=60 [facility] Comment on above: Order Comment: David pham Type: BLOOD SPECIMEN Ordering Facility: [facility] Address: [address] [place] [address] Result Comment: Eliza mated Glomerular Filtration Rate (eGFR) is calculated using the 2020 CKD-EPI creatinine equation. This equation utilizes serum creatinine, sex, and age as parameters. The creatinine assay has traceable calibration to isotope dilution-mass spectrometry. Refer to KDIGO guidelines for clinical interpretation. In patients with unstable renal function, e.g. those with acute kidney injury, the eGFR may not accurately reflect actual GFR. Performed By: #### 2 4323-8 #### [facility] CLIA [id number] [address] [place] [address] [place] Glucose [Mass/Vol] 100 mg/dL Normal 70-100 [facility] Comment on above: Order Comment: David pham Type: BLOOD SPECIMEN Ordering Facility: [facility] Address: [address] [phone] Result Comment: The [place] Diabetes Association (ADA) provides guidance for cutoff values for fasting glucose and random glucose. The ADA defines fasting as no caloric intake for at least 8 hours. Fasting plasma glucose results between 100 to 125 [...] Standards of Medical Care in Diabetes 2016, [place] [employer]. Diabetes Care. 2016.39(Suppl 1). Results may be falsely elevated after the administration of Sulfapyridine. Results may be falsely depressed after the administration of Sulfasalazine. Performed By: #### 2 4323-8 #### [facility] CLIA [id number] [address] [place] [address] [place] Potassium [Moles/Vol] 4.4 mmol/L Normal 3.5-5.1 [facility] Comment on above: Order Comment: Speci men Type: BLOOD SPECIMEN Ordering Facility: [facility] Address: [address] [place] [address] Performed By: #### 2 4323-8 #### [facility] CLIA [id number] [address] [place] [address] [place] Sodium [Moles/Vol] 142 mmol/L Normal 136-145 [facility] Comment on above: Order Comment: Speci men Type: BLOOD SPECIMEN Ordering Facility: [facility] Address: [address] [place] [address] Performed By: #### 2 4323-8 #### [facility] CLIA [id number] [address] [place] [address] [place] Urea nitrogen [Mass/Vol] 12 mg/dL Normal 7-26 [facility] Comment on above: Order Comment: Speci men Type: BLOOD SPECIMEN Ordering Facility: [facility] Address: [address] [place] [address] Performed By: #### 2 4323-8 #### [facility] CLIA [id number] [address] [place] [address] [place] CBC W Auto Differential pane l (Bld)on 12-22-2022 Basophils (Bld) [#/Vol] 0.08 10*3/uL Normal <0.11 [facility] Comment on above: Order Comment: Speci men Type: BLOOD SPECIMENOrdering Facility: [facility] Address: [address] [address] Performed By: #### 5 7021-8 ####[facility] [id number] [address] [place] Basophils/100 WBC (Bld) 0.8 % Normal [facility] Comment on above: Order Comment: Speci men Type: BLOOD SPECIMENOrdering Facility: [facility] Address: [address] [address] Performed By: #### 5 7021-8 ####[facility] [id number] [address] OF [place] Differential cell count method Nom (Bld) Auto Normal [facility] Comment on above: Order Comment: Speci men Type: BLOOD SPECIMENOrdering Facility: [facility] Address: [address] [address] Performed By: #### 5 7021-8 ####[facility]IA [id number] [place] [address] [place] Eosinophils (Bld) [#/Vol] 0.29 10*3/uL Normal <0.46 [facility] Comment on above: Order Comment: Speci men Type: BLOOD SPECIMENOrdering Facility: [facility] Address: [address] [place] [address] Performed By: #### 5 7021-8 ####[facility] [id number] [address] [place] Eosinophils/100 WBC (Bld) 2.7 % Normal [facility] Comment on above: Order Comment: Speci men Type: BLOOD SPECIMENOrdering Facility: [facility] Address: [address] [place] [address] Performed By: #### 5 7021-8 ####[facility] LABORATORYCLIA [id number] [place] [address] [place] Erythrocyte distribution width (RBC) [Ratio] 13.9 % Normal 11.5-15.0 [facility] Comment on above: Order Comment: Speci men Type: BLOOD SPECIMENOrdering Facility: [facility] Address: [address] [address] Performed By: #### 5 7021-8 ####[facility] LABORATORYCLIA [id number] [address] [place] Hematocrit (Bld) [Volume fraction] 35.3 % Low 36.0-46.0 [facility] Comment on above: Order Comment: Speci men Type: BLOOD SPECIMENOrdering Facility: [facility] Address: [address] [address] Performed By: #### 5 7021-8 ####[facility] LABORATORYCLIA [id number] [place] [address] [place] Hemoglobin (Bld) [Mass/Vol] 11.7 g/dL Normal 11.5-15.5 [facility] Comment on above: Order Comment: Speci men Type: BLOOD SPECIMENOrdering Facility: [facility] Address: [address] [address] Performed By: #### 5 7021-8 ####[facility] LABORATORYCLIA [id number] [place] [address] [place] Immature granulocytes (Bld) [#/Vol] 0.15 10*3/uL High <0.10 [facility] Comment on above: Order Comment: Speci men Type: BLOOD SPECIMENOrdering Facility: [facility] Address: [address] [address] Performed By: #### 5 7021-8 ####[facility] LABORATORYCLIA [id number] [address] [place] Immature granulocytes/100 WBC (Bld) 1.4 % Normal [facility] Comment on above: Order Comment: Speci men Type: BLOOD SPECIMENOrdering Facility: [facility] Address: [address] [address] Performed By: #### 5 7021-8 ####[facility] LABORATORYCLIA [id number] [place] [address] [place] Lymphocytes (Bld) [#/Vol] 3.43 10*3/uL Normal 1.00-4.00 [facility] Comment on above: Order Comment: Speci men Type: BLOOD SPECIMENOrdering Facility: [facility] Address: [address] [place] [address] Performed By: #### 5 7021-8 ####[facility] LABORATORYCLIA [id number] [place] [address] [place] Lymphocytes/100 WBC (Bld) 32.2 % Normal [facility] Comment on above: Order Comment: Speci men Type: BLOOD SPECIMENOrdering Facility: [facility] Address: [address] [place] [address] Performed By: #### 5 7021-8 ####[facility] LABORATORYCLIA [id number] [place] [address] [place] MCH (RBC) [Entitic mass] 29.3 pg Normal 26.0-34.0 [facility] Comment on above: Order Comment: Speci men Type: BLOOD SPECIMENOrdering Facility: [facility] Address: [address] [place] [address] Performed By: #### 5 7021-8 ####[facility] LABORATORYCLIA [id number] [place] [address] [place] MCHC (RBC) [Mass/Vol] 33.1 g/dL Normal 30.5-36.0 [facility] Comment on above: Order Comment: Speci men Type: BLOOD SPECIMENOrdering Facility: [facility] Address: [address] [place] [address] Performed By: #### 5 7021-8 ####[facility] LABORATORYCLIA [id number] [place] [address] [place] MCV (RBC) [Entitic vol] 88.5 fL Normal 80.0-100.0 [facility] Comment on above: Order Comment: Speci men Type: BLOOD SPECIMENOrdering Facility: [facility] Address: [address] [address] Performed By: #### 5 7021-8 ####[facility] LABORATORYCLIA [id number] [place] [address] [place] Monocytes (Bld) [#/Vol] 0.83 10*3/uL Normal <0.87 [facility] Comment on above: Order Comment: Speci men Type: BLOOD SPECIMENOrdering Facility: [facility] Address: [address] [address] Performed By: #### 5 7021-8 ####[facility] LABORATORYCLIA [id number] [place] [address] [place] Monocytes/100 WBC (Bld) 7.8 % Normal [facility] Comment on above: Order Comment: Speci men Type: BLOOD SPECIMENOrdering Facility: [facility] Address: [address] [address] Performed By: #### 5 7021-8 ####[facility] LABORATORYCLIA [id number] [place] [address] [place] Neutrophils (Bld) [#/Vol] 5.88 10*3/uL Normal 1.45-7.50 [facility] Comment on above: Order Comment: Speci men Type: BLOOD SPECIMENOrdering Facility: [facility] Address: [address] [address] Performed By: #### 5 7021-8 ####[facility] LABORATORYCLIA [id number] [place] [address] [place] Neutrophils/100 WBC (Bld) 55.1 % Normal [facility] Comment on above: Order Comment: Speci men Type: BLOOD SPECIMENOrdering Facility: [facility] Address: [address] [address] Performed By: #### 5 7021-8 ####[facility] LABORATORYCLIA [id number] [place] [address] [place] Nucleated RBC (Bld) [#/Vol] 10*3/uL Normal <0.01 [facility] Comment on above: Order Comment: Speci men Type: BLOOD SPECIMENOrdering Facility: [facility] Address: [address] [address] Performed By: #### 5 7021-8 ####[facility] LABORATORYCLIA [id number] [place] [address] [place] Nucleated RBC/100 WBC (Bld) [Ratio] 0.0 /100 WBC Normal [facility] Comment on above: Order Comment: Speci men Type: BLOOD SPECIMENOrdering Facility: [facility] Address: [address] Performed By: #### 5 7021-8 ####[facility] LABORATORYCLIA [id number] [place] [address] [place] Platelet mean volume (Bld) [Entitic vol] 10.3 fL Normal 9.0-12.7 [facility] Comment on above: Order Comment: Speci men Type: BLOOD SPECIMENOrdering Facility: [facility] Address: [address] Performed By: #### 5 7021-8 ####[facility] LABORATORYCLIA [id number] [place] [address] [place] Platelets (Bld) [#/Vol] 253 10*3/uL Normal 150-400 [facility] Comment on above: Order Comment: Speci men Type: BLOOD SPECIMENOrdering Facility: [facility] Address: [address] Performed By: #### 5 7021-8 ####[facility] LABORATORYCLIA [id number] [place] [address] [place] RBC (Bld) [#/Vol] 3.99 10*6/uL Normal 3.90-5.20 [facility] Comment on above: Order Comment: Speci men Type: BLOOD SPECIMENOrdering Facility: [facility] Address: [address] Performed By: #### 5 7021-8 ####[facility] LABORATORYCLIA [id number] [place] [address] [place] [facility] OF [place] WBC (Bld) [#/Vol] 10.66 10*3/uL Normal 3.70-11.00 [facility] Comment on above: Order Comment: Speci vero Type: BLOOD SPECIMENOrdering Facility: [facility] Address: [address] [place] [address] Performed By: #### 5 7021-8 ####[facility] LABORATORYCLIA [id number] [address] Magnesium SerPl-mCncon 12-22 Magnesium [Mass/Vol] 1.5 mg/dL Low 1.6-2.6 [facility] Comment on above: Order Comment: Speccoral pham Type: BLOOD SPECIMEN [facility] Address: [address] [place] [address] Performed By: #### 2 4323-8 #### [facility] CLIA [id number] [place] NURSING PROGon 12-22-2022 NURSING PROG HNO ID: [id number] Author: Blaire Milan, VERNON Service: ? Author Type: Registered Nurse Type: Nursing Progress Note Filed: 12/22/2022 10:37 AM Note Text: Pt sates she is SOB, chest discomfort comes and goes feels like something is sitting on her chest , shakiness ,vitals checked, WNL, LIP notified. Dr. Estrella to evaluate PT. Care plan continuing. Normal [facility] Phosphate SerPl-mCncon 12-22 Phosphate [Mass/Vol] 4.8 mg/dL Normal 2.5-4.9 [facility] Comment on above: Order Comment: Speci men Type: BLOOD SPECIMEN [facility] Address: [address] [place] [address] Result Comment: Elev ated m-protein (paraprotein) levels in the serum may be exhibited in patients with monoclonal gammopathies, causing falsely elevated inorganic phosphorus results. Performed By: #### 2 4323-8 #### [facility] CLIA [id number] [id number] [place] XR ABDOMEN 1V SUPINEon 12-22 XR ABDOMEN 1V SUPINE * * *Final Report* * * DATE OF EXAM: Dec 22 2022 12:16PM RHX 5289 - XR ABDOMEN 1V SUPINE / PROCEDURE REASON: Nausea/vomiting * * * * Physician Interpretation * * * * XR ABDOMEN 1V SUPINE Ordering Physician: DONYA ESTRELLA 12/22/2022 12:16 PM ABDOMEN Clinical Statement: Nausea and vomiting FINDINGS: 2 views of the abdomen and pelvis were obtained and compared to a previous study dated 10/01/2021. There is no abnormal gaseous distention. 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 There are findings compatible with a suprapubic catheter. There are postsurgical changes compatible with hernia repair. There are findings compatible with the patient's history of spina bifida. There are calcific densities overlying the abdomen felt to be within the posterior soft tissues as shown on the prior CT study. IMPRESSION: No acute abnormalities. Social Media Intern: PSCB Transcribe Date/Time: Dec 22 2022 12:31P Dictated by : SOLEDAD BARROSO MD This examination was interpreted and the report reviewed and electronically signed by: SOLEDAD BARROSO MD on Dec 22 2022 12:34PM EST [id number] Normal [facility] XR CHEST 1V FRONTALon 2022 XR CHEST 1V FRONTAL * * *Final Report* * * DATE OF EXAM: Dec 22 2022 12:16PM RHX 5290 - XR CHEST 1V FRONTAL / PROCEDURE REASON: Shortness of breath * * * * Physician Interpretation * * * * EXAMINATION: CHEST RADIOGRAPH (SINGLE VIEW AP OR PA) CLINICAL HISTORY: Shortness of breath MQ: XC1_5 Comparison: 10/07/2021 RESULT: Lines, tubes, and devices: None. Lungs and pleura: There is a limited depth of inspiration with prominence of the lung markings. There are no consolidated infiltrates. There are no effusions. There is no pneumothorax. Cardiomediastinal silhouette: The cardiac silhouette is normal in size. The mediastinum is unremarkable. Other: There are no acute osseous abnormalities. IMPRESSION: Poor inspiratory effort with prominence of the lung markings. Social Media Intern: JACI Transcribe Date/Time: Dec 22 2022 12:34P Dictated by : SOLEDAD BARROSO MD This examination was interpreted and the report reviewed and electronically signed by: SOLEDAD BARROSO MD on Dec 22 2022 12:35PM EST [id number] [facility] CASE MGT INIT Stephanie 2022 CASE MGT INIT BERNARDINO HNO ID: [id number] Author: Silvia Xiao RN Service: ? Author Type: Registered Nurse Type: Care Mgt Initial Assessment Filed: 12/21/2022 2:03 PM Note Text: CARE MANAGEMENT: ASSESSMENT AND DISCHARGE PLAN SERVICE DATE: December 21, 2022 SERVICE TIME: 1100 PCP: Will Brannon MD Primary Contact: Extended Emergency Contact Information Primary Emergency Contact: Mehdi Bailon Address: [address] [place] [address] Mobile Relation: Spouse Secondary Emergency Contact: Bev Bailon(father in law) Mobile Relation: Relative Father: Margaret Eisenberg [place] Mobile Admission Status: Inpatient Insurance Provider: MEDICARE A AND B Discharge Planning requested by: Per Department Practice Potential Transition Plans Home Advance Directives Current Advance Directive: None Irrigation System Operator Attempted to Assist with AD Completion: Yes Action: Education Provided Current Living Arrangements and Support Lives with: Spouse/significant other Type of Residence: Private Residence (House) Does the patient have to climb stairs at home?: Yes;stairs outside the home Support: Friends/neighbors, Family members, Parent, Spouse/significant other How do you manage to accomplish the following: Independent: Ambulation;Bathe/Shower; Dress;Meals/Meal Prep;Going to the bathroom;Medication Management Dependent: Transportation to appointments/community Current Services/Equipment Current Post-Acute Service(s): Other: See Comment Current Post-Acute Service(s) Provider: suprapubic supplies Discharge Planning Patient Goal(s): General wellness, Be able to go home [place] of Choice Explained: Are you interested in bedside delivery of your medications? No Discharge Planning Participant(s): Patient Patient/Family Comments: Caregiver Assessment: Caregiver is ready, willing and able to meet the patient's needs as recommended by the inter-professional team: Yes Name of Caregiver: Transport at Discharge: Needs Prior to Discharge: Needs Prior to Discharge: To Be Determined;Discharge Prescriptions Post-Acute Discharge Plan: Pt presented to [facility] for fever, nausea, and vomiting. Transferred to [facility] for recurrent UTI. Pt lives at home with her . Pt has chronic suprapubic due to neurogenic bladder. Hx of spina bifida. Pt reports she is independent with ADLs. Does not drive. provides transportation. Goes to urology monthly for suprapubic catheter change. Pt flushes and maintains catheter at home. Continues on IV abt and IV fluids. ID following. Urology following. Pt to return home at discharge with . Denies any needs. to provide transport at discharge. SIGNATURE: Silvia Xiao RN PATIENT NAME: Debby Bailon DATE: December 21, 2022 TIME: 11:14 AM CONTACT #: [phone] Normal [facility] CBC W Auto Differential pane l (Bld)on 12-21-2022 Basophils (Bld) [#/Vol] 0.05 10*3/uL Normal <0.11 [facility] Comment on above: Order Comment: Speci men Type: BLOOD SPECIMENOrdering Facility: [facility] Address: [address] [address] Performed By: #### 5 7021-8 ####[facility] LABORATORYCLIA [id number] [place] [address] [place] Basophils/100 WBC (Bld) 0.5 % Normal [facility] Comment on above: Order Comment: Speci men Type: BLOOD SPECIMENOrdering Facility: [facility] Address: [address] [address] Performed By: #### 5 7021-8 ####[facility] LABORATORYCLIA [id number] [address] [place] Differential cell count method Nom (Bld) Auto Normal [facility] Comment on above: Order Comment: Speci men Type: BLOOD SPECIMENOrdering Facility: [facility] Address: [address] [address] Performed By: #### 5 7021-8 ####[facility] LABORATORYCLIA [id number] [place] [address] [place] Eosinophils (Bld) [#/Vol] 0.29 10*3/uL Normal <0.46 [facility] Comment on above: Order Comment: Speci men Type: BLOOD SPECIMENOrdering Facility: [facility] Address: [address] [address] Performed By: #### 5 7021-8 ####[facility] LABORATORYCLIA [id number] [address] [place] Eosinophils/100 WBC (Bld) 3.1 % Normal [facility] Comment on above: Order Comment: Speci men Type: BLOOD SPECIMENOrdering Facility: [facility] Address: [address] [address] Performed By: #### 5 7021-8 ####[facility] LABORATORYCLIA [id number] [address] [place] Erythrocyte distribution width (RBC) [Ratio] 14.3 % Normal 11.5-15.0 [facility] Comment on above: Order Comment: Speci men Type: BLOOD SPECIMENOrdering Facility: [facility] Address: [address] [address] Performed By: #### 5 7021-8 ####[facility] LABORATORYCLIA [id number] [address] [place] Hematocrit (Bld) [Volume fraction] 34.4 % Low 36.0-46.0 [facility] Comment on above: Order Comment: Speci men Type: BLOOD SPECIMENOrdering Facility: [facility] Address: [address] [address] Performed By: #### 5 7021-8 ####[facility] LABORATORYCLIA [id number] [place] [address] [place] Hemoglobin (Bld) [Mass/Vol] 11.3 g/dL Low 11.5-15.5 [facility] Comment on above: Order Comment: Speci men Type: BLOOD SPECIMENOrdering Facility: [facility] Address: [address] [place] [address] Performed By: #### 5 7021-8 ####[facility] LABORATORYCLIA [id number] [place] [address] [place] Immature granulocytes (Bld) [#/Vol] 0.14 10*3/uL High <0.10 [facility] Comment on above: Order Comment: Speci men Type: BLOOD SPECIMENOrdering Facility: [facility] Address: [address] [place] [address] Performed By: #### 5 7021-8 ####[facility] LABORATORYCLIA [id number] [address] [place] Immature granulocytes/100 WBC (Bld) 1.5 % Normal [facility] Comment on above: Order Comment: Speci men Type: BLOOD SPECIMENOrdering Facility: [facility] Address: [address] [place] [address] Performed By: #### 5 7021-8 ####[facility] LABORATORYCLIA [id number] [place] [address] [place] Lymphocytes (Bld) [#/Vol] 3.32 10*3/uL Normal 1.00-4.00 [facility] Comment on above: Order Comment: Speci men Type: BLOOD SPECIMENOrdering Facility: [facility] Address: [address] [place] [address] Performed By: #### 5 7021-8 ####[facility] LABORATORYCLIA [id number] [place] [address] [place] Lymphocytes/100 WBC (Bld) 35.5 % Normal [facility] Comment on above: Order Comment: Speci men Type: BLOOD SPECIMENOrdering Facility: [facility] Address: [address] [address] Performed By: #### 5 7021-8 ####[facility] LABORATORYCLIA [id number] [address] MCH (RBC) [Entitic mass] 29.4 pg Normal 26.0-34.0 [facility] Comment on above: Order Comment: Speci men Type: BLOOD SPECIMENOrdering Facility: [facility] Address: [address] [address] Performed By: #### 5 7021-8 ####[facility] LABORATORYCLIA [id number] [address] MCHC (RBC) [Mass/Vol] 32.8 g/dL Normal 30.5-36.0 [facility] Comment on above: Order Comment: Speci men Type: BLOOD SPECIMENOrdering Facility: [facility] Address: [address] [address] Performed By: #### 5 7021-8 ####[facility] LABORATORYCLIA [id number] [address] MCV (RBC) [Entitic vol] 89.4 fL Normal 80.0-100.0 [facility] Comment on above: Order Comment: Speci men Type: BLOOD SPECIMENOrdering Facility: [facility] Address: [address] [address] Performed By: #### 5 7021-8 ####[facility] LABORATORYCLIA [id number] [address] Monocytes (Bld) [#/Vol] 0.72 10*3/uL Normal <0.87 [facility] Comment on above: Order Comment: Speci men Type: BLOOD SPECIMENOrdering Facility: [facility] Address: [address] [address] Performed By: #### 5 7021-8 ####[facility] LABORATORYCLIA [id number] [place] [address] [place] Monocytes/100 WBC (Bld) 7.7 % Normal [facility] Comment on above: Order Comment: Speci men Type: BLOOD SPECIMENOrdering Facility: [facility] Address: [address] [address] Performed By: #### 5 7021-8 ####[facility] LABORATORYCLIA [id number] [place] [address] [place] Neutrophils (Bld) [#/Vol] 4.84 10*3/uL Normal 1.45-7.50 [facility] Comment on above: Order Comment: Speci men Type: BLOOD SPECIMENOrdering Facility: [facility] Address: [address] [address] Performed By: #### 5 7021-8 ####[facility] LABORATORYCLIA [id number] [address] [place] Neutrophils/100 WBC (Bld) 51.7 % Normal [facility] Comment on above: Order Comment: Speci men Type: BLOOD SPECIMENOrdering Facility: [facility] Address: [address] [address] Performed By: #### 5 7021-8 ####[facility] LABORATORYCLIA [id number] [place] [address] [place] Nucleated RBC (Bld) [#/Vol] 10*3/uL Normal <0.01 [facility] Comment on above: Order Comment: Speci men Type: BLOOD SPECIMENOrdering Facility: [facility] Address: [address] [address] Performed By: #### 5 7021-8 ####[facility] LABORATORYCLIA [id number] [place] [address] [place] Nucleated RBC/100 WBC (Bld) [Ratio] 0.0 /100 WBC Normal [facility] Comment on above: Order Comment: Speci men Type: BLOOD SPECIMENOrdering Facility: [facility] Address: [address] [address] Performed By: #### 5 7021-8 ####[facility] LABORATORYCLIA [id number] [address] [id number] [place] Platelet mean volume (Bld) [Entitic vol] 10.8 fL Normal 9.0-12.7 [facility] Comment on above: Order Comment: Speci men Type: BLOOD SPECIMENOrdering Facility: [facility] Address: [address] [place] [address] Performed By: #### 5 7021-8 ####[facility] LABORATORYCLIA [id number] [place] [address] [facility] OF [place] Platelets (Bld) [#/Vol] 228 10*3/uL Normal 150-400 [facility] Comment on above: Order Comment: Speci men Type: BLOOD SPECIMENOrdering Facility: [facility] Address: [address] [place] [address] Performed By: #### 5 7021-8 ####[facility]CL[facility] [id number] [address] [place] RBC (Bld) [#/Vol] 3.85 10*6/uL Low 3.90-5.20 [facility] Comment on above: Order Comment: Speci men Type: BLOOD SPECIMENOrdering Facility: [facility] Address: [address] [place] [address] Performed By: #### 5 7021-8 ####[facility] LABORATORYCLIA [id number] [place] [address] [place] WBC (Bld) [#/Vol] 9.36 10*3/uL Normal 3.70-11.00 [facility] Comment on above: Order Comment: Speci men Type: BLOOD SPECIMENOrdering Facility: [facility] Address: [address] [place] [address] Performed By: #### 5 7021-8 ####[facility] LABORATORYCLIA [id number] [place] [address] [facility] CONSULT PROGon 12-21-2022 CONSULT PROG HNO ID: [id number] Author: Abdoul Sepulveda MD Service: Infectious Disease Author Type: Physician Type: Consult Progress Note Filed: 12/21/2022 2:25 PM Note Text: Infectious Disease SERVICE CONSULT PROGRESS NOTE SERVICE DATE: 12/21/2022 SERVICE TIME: 2:18 PM Subjective INTERVAL HPI: Pt still feeling unwell. Has bilateral lower back pain and chills. She says she saw some blood in her catheter earlier today. Current Facility-Administered Medications Medication Dose Route Frequency acetaminophen 650 mg tab(s) (TYLENOL) 650 mg ORAL q 4 H PRN busPIRone (BUSPAR) tab(s) 15 mg 15 mg ORAL DAILY atorvastatin 80 mg tab(s) (LIPITOR) 80 mg ORAL DAILY insulin glargine 33 Units pen (long acting) 33 Units SUBCUTANEOUS AT BEDTIME fluticasone 50 mcg/actuation 2 [place] (FLONASE) 2 [place] EACH NOSTRIL DAILY traZODone 100 mg tab(s) (DESYREL) 100 mg ORAL AT BEDTIME DULoxetine 30 mg cap(s) (CYMBALTA) 30 mg ORAL DAILY enoxaparin 40 mg injection (LOVENOX) 40 mg SUBCUTANEOUS q 24 HR NaCl 0.9% iv flush bag 20 mL INTRAVENOUS PRN dextrose 40 % 15 g 15 g ORAL PRN Or glucagon 1 mg injection 1 mg INTRAMUSCULAR PRN Or dextrose 10% iv bolus 12.5 g INTRAVENOUS PRN HYDROmorphone (PF) 0.2 mg injection (DILAUDID) 0.2 mg INTRAVENOUS q 4 H PRN insulin lispro injection (rapid acting) (HumaLOG) SUBCUTANEOUS w MEALS NaCl 0.9% iv infusion 75 mL/hr INTRAVENOUS CONTINUOUS ondansetron (PF) 4 mg injection (ZOFRAN) 4 mg INTRAVENOUS q 8 H PRN ertapenem 1 g in NaCl 0.9% 100 mL Vial-Bag (INVanz) 1 g INTRAVENOUS q 24 H Objective PHYSICAL EXAM: Physical Exam Performed: BP 143/82 Pulse 65 Temp (Src) 97.8 (Oral) Resp 18 Ht 5' 2 (1.58m) Wt 230 lb 4.8 oz (104.5kg) SpO2 97% LMP 10/20/2022 BMI 42.11 kg/(m2). Alert, oriented, NAD RRR CTAB Bilateral CVA tenderness. Suprapubic catheter. DATA: Diagnostic tests reviewed for today's visit: CBC: Recent Labs 12/21/22 0518 WBC 9.36 RBC 3.85* HB 11.3* HCT 34.4* PLT 228 MCV 89.4 MCH 29.4 MPV 10.8 CMP: Recent Labs 12/21/22 0518 NA 143 K 4.3 CHLOR 109* CO2 24 BUN 15 CREAT 0.93 GLUC 130* TPROT 6.2 CA 9.0 TBILI 0.2 ALKPHOS 71 ALT 26 AST 18 ANION 10 Impression/Recommendatio ns Principal Problem: Complicated UTI/pyelo - Urine culture with Morganella, mixed organisms. Will plan on 10 more days of ertapenem. See script. ID to follow. SIGNATURE: Abdoul Sepulveda MD PATIENT NAME: Debby Bailon DATE: December 21, 2022 TIME: 2:18 PM Normal [facility] Comprehensive metabolic 2000 panelon 12-21-2022 Albumin [Mass/Vol] 2.9 g/dL Low 3.2-5.0 [facility] Comment on above: Order Comment: Speci men Type: BLOOD SPECIMENOrdering Facility: [facility] Address: [address] [place] [address] Performed By: #### 2 4323-8 ####[facility] LABORATORYCLIA [id number] [place] [address] [place] ALP [Catalytic activity/Vol] 71 U/L Normal 45-117 [facility] Comment on above: Order Comment: Speci men Type: BLOOD SPECIMENOrdering Facility: [facility] Address: [address] [place] [address] Performed By: #### 2 4323-8 ####[facility] LABORATORYCLIA [id number] [address] [place] ALT [Catalytic activity/Vol] 26 U/L Normal 13-61 [facility] Comment on above: Order Comment: Speci men Type: BLOOD SPECIMENOrdering Facility: [facility] Address: [address] [place] [address] Result Comment: Resu lts may be falsely depressed after the administration of Sulfasalazine and/or Sulfapyridine. Performed By: #### 2 4323-8 ####[facility] LABORATORYCLIA [id number] [place] [address] [place] Anion gap [Moles/Vol] 10 mmol/L Normal 5-16 [facility] Comment on above: Order Comment: Speci men Type: BLOOD SPECIMENOrdering Facility: [facility] Address: [address] [place] [address] Performed By: #### 2 4323-8 ####[facility] LABORATORYCLIA [id number] [place] [address] [place] AST [Catalytic activity/Vol] 18 U/L Normal 8-34 [facility] Comment on above: Order Comment: Speci men Type: BLOOD SPECIMENOrdering Facility: [facility] Address: [address] [place] [address] Result Comment: Resu lts may be falsely depressed after the administration of Sulfasalazine and/or Sulfapyridine. Performed By: #### 2 4323-8 ####[facility] LABORATORYCLIA [id number] [place] [address] [place] Bilirubin [Mass/Vol] 0.2 mg/dL Normal 0.2-1.0 [facility] Comment on above: Order Comment: Speci men Type: BLOOD SPECIMENOrdering Facility: [facility] Address: [address] [place] [address] Performed By: #### 2 4323-8 ####[facility] LABORATORYCLIA [id number] [place] [address] [place] Calcium [Mass/Vol] 9.0 mg/dL Normal 8.5-10.5 [facility] Comment on above: Order Comment: Speci men Type: BLOOD SPECIMENOrdering Facility: [facility] Address: [address] [place] [address] Performed By: #### 2 4323-8 ####[facility] LABORATORYCLIA [id number] [place] [address] [place] Chloride [Moles/Vol] 109 mmol/L High 98-107 [facility] Comment on above: Order Comment: Speci men Type: BLOOD SPECIMENOrdering Facility: [facility] Address: [address] [place] [address] Performed By: #### 2 4323-8 ####[facility] LABORATORYCLIA [id number] [place] [address] [place] CO2 [Moles/Vol] 24 mmol/L Normal 21-32 [facility] Comment on above: Order Comment: Speci men Type: BLOOD SPECIMENOrdering Facility: [facility] Address: [address] [place] [address] Performed By: #### 2 4323-8 ####[facility] LABORATORYCLIA [id number] [address] OF [facility] Creatinine [Mass/Vol] 0.93 mg/dL Normal 0.51-0.95 [facility] Comment on above: Order Comment: Speci men Type: BLOOD SPECIMENOrdering Facility: [facility] Address: [address] [place] [address] Result Comment: Janel ents receiving either N-Acetylcysteine (NAC) or Metamizole prior to venipuncture, may have falsely depressed results. Performed By: #### 2 4323-8 ####[facility] LABORATORYCLIA [id number] [address] OF [place] ESTIMATED GLOMERULAR FILTRATION RATE 79 mL/min/1.73m??? Normal >=60 [facility] Comment on above: Order Comment: Speci men Type: BLOOD SPECIMENOrdering Facility: [facility] Address: [address] [place] [address] Result Comment: Eliza mated Glomerular Filtration Rate (eGFR) is calculated using the 2020 CKD-EPI creatinine equation. This equation utilizes serum creatinine, sex, and age as parameters. The creatinine assay has traceable calibration to isotope dilution-mass spectrometry. Refer to KDIGO guidelines for clinical interpretation. In patients with unstable renal function, e.g. those with acute kidney injury, the eGFR may not accurately reflect actual GFR. Performed By: #### 2 4323-8 ####[facility] LABORATORYCLIA [id number] [place] [address] [place] Glucose [Mass/Vol] 130 mg/dL High 70-100 [facility] Comment on above: Order Comment: David pham Type: BLOOD SPECIMENOrdering Facility: [facility] Address: [address] [place] [address] Result Comment: The [place] Diabetes Association (ADA) provides guidance for cutoff values for fasting glucose and random glucose. The ADA defines fasting as no caloric intake for at least 8 hours. Fasting plasma glucose results between 100 to 125 [...] Standards of Medical Care in Diabetes 2016, [place] [employer]. Diabetes Care. 2016.39(Suppl 1). Results may be falsely elevated after the administration of Sulfapyridine. Results may be falsely depressed after the administration of Sulfasalazine. Performed By: #### 2 4323-8 ####[facility] LABORATORYCLIA [id number] [place] [address] [place] Potassium [Moles/Vol] 4.3 mmol/L Normal 3.5-5.1 [facility] Comment on above: Order Comment: aDvid vero Type: BLOOD SPECIMENOrdering Facility: [facility] Address: [address] [place] [address] Performed By: #### 2 4323-8 ####[facility] LABORATORYCLIA [id number] [place] [address] [place] Protein [Mass/Vol] 6.2 g/dL Normal 6.0-8.5 [facility] Comment on above: Order Comment: David pham Type: BLOOD SPECIMENOrdering Facility: [facility] Address: [address] [place] [address] Performed By: #### 2 4323-8 ####[facility] LABORATORYCLIA [id number] [place] [address] [place] Sodium [Moles/Vol] 143 mmol/L Normal 136-145 [facility] Comment on above: Order Comment: Speci men Type: BLOOD SPECIMENOrdering Facility: [facility] Address: [address] [place] [address] Performed By: #### 2 4323-8 ####[facility] LABORATORYCLIA [id number] [address] [place] [facility] Urea nitrogen [Mass/Vol] 15 mg/dL Normal 7-26 [facility] Comment on above: Order Comment: Speci men Type: BLOOD SPECIMENOrdering Facility: [facility] Address: [address] [place] [address] Performed By: #### 2 4323-8 ####[facility] LABORATORYCLIA [id number] [address] [place] CBC W Auto Differential pane l (Bld)on 12-20-2022 Basophils (Bld) [#/Vol] 0.06 10*3/uL Normal <0.11 [facility] Comment on above: Order Comment: Speci men Type: BLOOD SPECIMENOrdering Facility: [facility] Address: [address] [place] [address] Performed By: #### 5 7021-8 ####[facility] LABORATORYCLIA [id number] [address] [place] Basophils/100 WBC (Bld) 0.6 % Normal [facility] Comment on above: Order Comment: Speci men Type: BLOOD SPECIMENOrdering Facility: [facility] Address: [address] [place] [address] Performed By: #### 5 7021-8 ####[facility] LABORATORYCLIA [id number] [address] [place] Differential cell count method Nom (Bld) Auto Normal [facility] Comment on above: Order Comment: Speci men Type: BLOOD SPECIMENOrdering Facility: [facility] Address: [address] [place] [place] [address] Performed By: #### 5 7021-8 ####[facility] LABORATORYCLIA [id number] [place] [address] [place] Eosinophils (Bld) [#/Vol] 0.32 10*3/uL Normal <0.46 [facility] Comment on above: Order Comment: Speci men Type: BLOOD SPECIMENOrdering Facility: [facility] Address: [address] [address] Performed By: #### 5 7021-8 ####[facility] LABORATORYCLIA [id number] [place] [address] [place] Eosinophils/100 WBC (Bld) 3.1 % Normal [facility] Comment on above: Order Comment: Speci men Type: BLOOD SPECIMENOrdering Facility: [facility] Address: [address] [place] [address] Performed By: #### 5 7021-8 ####[facility] LABORATORYCLIA [id number] [place] [address] [place] Erythrocyte distribution width (RBC) [Ratio] 14.5 % Normal 11.5-15.0 [facility] Comment on above: Order Comment: Speci men Type: BLOOD SPECIMENOrdering Facility: [facility] Address: [address] [place] [address] Performed By: #### 5 7021-8 ####[facility] LABORATORYCLIA [id number] [place] [address] [place] Giant platelets LM Ql (Bld) Occasional Normal [facility] Comment on above: Order Comment: Speci men Type: BLOOD SPECIMENOrdering Facility: [facility] Address: [address] [place] [address] Performed By: #### 5 7021-8 ####[facility] LABORATORYCLIA [id number] [place] [address] [place] Hematocrit (Bld) [Volume fraction] 32.8 % Low 36.0-46.0 [facility] Comment on above: Order Comment: Speci men Type: BLOOD SPECIMENOrdering Facility: [facility] Address: [address] [place] [address] Performed By: #### 5 7021-8 ####[facility] LABORATORYCLIA [id number] [place] [address] [place] Hemoglobin (Bld) [Mass/Vol] 10.8 g/dL Low 11.5-15.5 [facility] Comment on above: Order Comment: Speci men Type: BLOOD SPECIMENOrdering Facility: [facility] Address: [address] [address] Performed By: #### 5 7021-8 ####[facility] LABORATORYCLIA [id number] [place] [address] [place] Immature granulocytes (Bld) [#/Vol] 0.15 10*3/uL High <0.10 [facility] Comment on above: Order Comment: Speci men Type: BLOOD SPECIMENOrdering Facility: [facility] Address: [address] [address] Performed By: #### 5 7021-8 ####[facility] LABORATORYCLIA [id number] [place] [address] [place] Immature granulocytes/100 WBC (Bld) 1.4 % Normal [facility] Comment on above: Order Comment: Speci men Type: BLOOD SPECIMENOrdering Facility: [facility] Address: [address] Performed By: #### 5 7021-8 ####[facility] LABORATORYCLIA [id number] [place] [address] [place] Lymphocytes (Bld) [#/Vol] 3.65 10*3/uL Normal 1.00-4.00 [facility] Comment on above: Order Comment: Speci men Type: BLOOD SPECIMENOrdering Facility: [facility] Address: [address] [address] Performed By: #### 5 7021-8 ####[facility] LABORATORYCLIA [id number] [address] [place] Lymphocytes/100 WBC (Bld) 35.2 % Normal [facility] Comment on above: Order Comment: Speci men Type: BLOOD SPECIMENOrdering Facility: [facility] Address: [address] [address] Performed By: #### 5 7021-8 ####[facility] LABORATORYCLIA [id number] [address] [place] MCH (RBC) [Entitic mass] 29.4 pg Normal 26.0-34.0 [facility] Comment on above: Order Comment: Speci men Type: BLOOD SPECIMENOrdering Facility: [facility] Address: [address] [address] Performed By: #### 5 7021-8 ####[facility] LABORATORYCLIA [id number] [address] [place] MCHC (RBC) [Mass/Vol] 32.9 g/dL Normal 30.5-36.0 [facility] Comment on above: Order Comment: Speci men Type: BLOOD SPECIMENOrdering Facility: [facility] Address: [address] [place] [address] Performed By: #### 5 7021-8 ####[facility] LABORATORYCLIA [id number] [address] [place] MCV (RBC) [Entitic vol] 89.4 fL Normal 80.0-100.0 [facility] Comment on above: Order Comment: Speci men Type: BLOOD SPECIMENOrdering Facility: [facility] Address: [address] [address] Performed By: #### 5 7021-8 ####[facility] LABORATORYCLIA [id number] [address] Monocytes (Bld) [#/Vol] 0.86 10*3/uL Normal <0.87 [facility] Comment on above: Order Comment: Speci men Type: BLOOD SPECIMENOrdering Facility: [facility] Address: [address] [address] Performed By: #### 5 7021-8 ####[facility] LABORATORYCLIA [id number] [place] [address] [place] Monocytes/100 WBC (Bld) 8.3 % Normal [facility] Comment on above: Order Comment: Speci men Type: BLOOD SPECIMENOrdering Facility: [facility] Address: [address] [address] Performed By: #### 5 7021-8 ####[facility] LABORATORYCLIA [id number] [place] [address] [place] Neutrophils (Bld) [#/Vol] 5.33 10*3/uL Normal 1.45-7.50 [facility] Comment on above: Order Comment: Speci men Type: BLOOD SPECIMENOrdering Facility: [facility] Address: [address] [place] [address] Performed By: #### 5 7021-8 ####[facility] LABORATORYCLIA [id number] [place] [address] [place] Neutrophils/100 WBC (Bld) 51.4 % Normal [facility] Comment on above: Order Comment: Speci men Type: BLOOD SPECIMENOrdering Facility: [facility] Address: [address] [place] [address] Performed By: #### 5 7021-8 ####[facility] LABORATORYCLIA [id number] [place] [address] [place] Nucleated RBC (Bld) [#/Vol] 10*3/uL Normal <0.01 [facility] Comment on above: Order Comment: Speci men Type: BLOOD SPECIMENOrdering Facility: [facility] Address: [address] [place] [address] Performed By: #### 5 7021-8 ####[facility] LABORATORYCLIA [id number] [place] [address] [place] Nucleated RBC/100 WBC (Bld) [Ratio] 0.0 /100 WBC Normal [facility] Comment on above: Order Comment: Speci men Type: BLOOD SPECIMENOrdering Facility: [facility] Address: [address] Performed By: #### 5 7021-8 ####[facility] LABORATORYCLIA [id number] [place] [id number] [place] Platelet mean volume (Bld) [Entitic vol] 11.9 fL Normal 9.0-12.7 [facility] Comment on above: Order Comment: Speci men Type: BLOOD SPECIMENOrdering Facility: [facility] Address: [address] Performed By: #### 5 7021-8 ####[facility] LABORATORYCLIA [id number] [place] [address] [place] Platelets (Bld) [#/Vol] 169 10*3/uL Normal 150-400 [facility] Comment on above: Order Comment: Speci men Type: BLOOD SPECIMENOrdering Facility: [facility] Address: [address] Performed By: #### 5 7021-8 ####[facility] LABORATORYCLIA [id number] [place] [address] [place] Platelets Estimate (Bld) [#/Vol] Adequate Normal [facility] Comment on above: Order Comment: Speci men Type: BLOOD SPECIMENOrdering Facility: [facility] Address: [address] Performed By: #### 5 7021-8 ####[facility] LABORATORYCLIA [id number] [place] [address] [place] RBC (Bld) [#/Vol] 3.67 10*6/uL Low 3.90-5.20 [facility] Comment on above: Order Comment: Speci men Type: BLOOD SPECIMENOrdering Facility: [facility] Address: [address] Performed By: #### 5 7021-8 ####[facility] LABORATORYCLIA [id number] [place] [address] [facility] RED CELL MORPH Reviewed: unremarkable Normal [facility] Comment on above: Order Comment: Speci men Type: BLOOD SPECIMENOrdering Facility: [facility] Address: [place] [address] Performed By: #### 5 7021-8 ####[facility] LABORATORYCLIA [id number] [address] OF [facility] WBC (Bld) [#/Vol] 10.37 10*3/uL Normal 3.70-11.00 [facility] Comment on above: Order Comment: Speci men Type: BLOOD SPECIMENOrdering Facility: [facility] Address: [address] [place] [id number] Performed By: #### 5 7021-8 ####[facility] LABORATORYCLIA [id number] [place] [address] [facility] CONSULTon 12-20-2022 CONSULT HNO ID: [id number] Author: Bev Ngo MD Service: Infectious Disease Author Type: Physician Type: Consults Filed: 12/20/2022 1:07 PM Note Text: Infectious Disease Consultation Date of Service: 12/20/22 Reason for consult: esbl pyelo HPI: 42 year old female with history of spina bifids, suprapubic cath, recurrent uti. Had about one week progressive bilat flank pain, R worse than L with abd pain, chills, fatigue. Went to [place], then [place], given levaquin, then back to [place], transferred here. Now on ertapenem, feeling a little better. No fever. Full ROS performed and negative except as noted above. PAST MEDICAL HISTORY Diagnosis Date Amputation of left great toe ([facility]) 06/25/2020 Anxiety Arthritis started age 19 Bilateral leg edema 07/16/2018 Cervical radiculopathy 05/02/2013 Chronic pain 02/12/[address] ([facility]) 09/30/2021 Constipation due to outlet dysfunction 10/07/2021 Cyst of ovary 11/28/2011 Diabetic eye exam ([facility]) 06/17/2016 Last done: 01/25/2017 Diabetic eye exam (HCC) 06/17/2016 Last done: 03/08/2019 DJD (degenerative joint disease), thoracic DM (diabetes mellitus), secondary, uncontrolled, w/renal complications 12/05/2017 Dysthymic disorder Depression (non-psychotic), sees [facility] at [facility]. 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 Will monitor. Lipomeningocele, sacral level 09/12/2013 Lumbago 02/12/2015 Medicare annual wellness visit, subsequent 02/28/2018 last done: 02/28/2018 Migraine without aura and without status migrainosus, not intractable 10/18/2016 Miscarriage Mixed hyperlipidemia 02/28/2018 Muscle weakness of left lower extremity 08/07/2013 Neck pain 05/02/2013 Neurogenic bladder 02/12/2015 Neurogenic bowel 01/06/2016 Neuropathy 02/12/2015 post back surgery with secondary infection. Seeing Dr. Gregg Non-compliance 09/02/2022 Even stated in endocrine note from 09/01/2022 Numbness and tingling of left arm and leg 08/07/2013 Obesity, Class II, BMI 35-39.9 02/12/2015 Panic attacks Paroxysmal SVT (supraventricular tachycardia) (HCC) 07/03/2017 Per 48 Hr event monitor 06/30/2017 Primary insomnia 02/17/2016 S/P hernia repair 12/11/2017 Spina bifida (HCC) 01/06/2016 Suprapubic catheter (HCC) Thyroid cyst 01/01/2018 Complex right sided cysts. US 12/2017, biopsy per Dr. Josue 01/23/2018 benign. Repeat US in a year. 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 nl AMPUTATION TOE,MT-P JT Left 02/11/2020 left big toe CATH, SUPRAPUBIC/CYSTOSCOPIC 11/07/2018 COLOSTOMY 10/01/2021 CYSTOSCOPY,REMV CALCULUS,COMPLIC 11/10/2020 DILATION AND CURETTAGE DXAND/THER NONOBSTETRIC Dilation AND curettage HERNIA REPAIR W/MESH 2018 LEXISCAN STRESS TEST 07/20/2018 negative NUCLEAR STRESS LEXISCAN (CARD) 10/24/2018 negative PAST SURGICAL HISTORY OF 2010 cholecystectomy PAST SURGICAL HISTORY OF 09/2012 back surgery x2 PAST SURGICAL HISTORY OF Left 9 AND 02/2014 foot x2 PAST SURGICAL HISTORY OF 07/2015 Bowles stoma PAST SURGICAL HISTORY OF 09/30/2021 Laparoscopic end colostomy REPAIR UMBILICAL HERNIA 12/11/2017 STRESS ECHO 12/09/2019 Negative STRESS TEST 07/18/2017 normal STRESS TEST 03/15/2018 negative Social History Tobacco Use Smoking status: Never Smokeless tobacco: Never Vaping Use Vaping Use: Never used Substance Use Topics Alcohol use: Not Currently Comment: social Drug use: Never She indicated that her mother is . She indicated that her father is alive. She indicated that her brother is alive. She indicated that her maternal grandmother is . She indicated that her maternal grandfather is . She indicated that her paternal grandmother is . She indicated that her paternal grandfather is . She indicated that both of her maternal uncles are . She indicated that the status of her no family history is unknown. ALLERGIES Allergen Reactions Ceftriaxone Anaphylaxis Had skin testing on 12/09 at allergy office which was positive. Also had prior anaphylactic reaction on 09/30/2021. Patient should avoid ceftriaxone and all other cephalosporins. She has tolerated amoxicillin outpatient in the past. Cephalosporins Anaphylaxis Patient had anaphylaxis pre-op on 09/30 when this was given with other induction agents. Patient had skin testing on 11/26 (more content not included)... Normal [facility] Comprehensive metabolic 2000 panelon 12-20-2022 Albumin [Mass/Vol] 2.8 g/dL Low 3.2-5.0 [facility] Comment on above: Order Comment: Speci men Type: BLOOD SPECIMENOrdering Facility: [facility] Address: [address] [place], [place] [address] [address] Performed By: #### 2 4323-8 ####[facility] LABORATORYCLIA [id number] [place] [address] [place] [facility] ALP [Catalytic activity/Vol] 67 U/L Normal 45-117 [facility] Comment on above: Order Comment: Speci men Type: BLOOD SPECIMENOrdering Facility: [facility] Address: [address] [place] [address] Performed By: #### 2 4323-8 ####[facility] LABORATORYCLIA [id number] [place] [address] [place] ALT [Catalytic activity/Vol] 28 U/L Normal 13-61 [facility] Comment on above: Order Comment: Speci men Type: BLOOD SPECIMENOrdering Facility: [facility] Address: [address] [place] [address] Result Comment: Resu lts may be falsely depressed after the administration of Sulfasalazine and/or Sulfapyridine. Performed By: #### 2 4323-8 ####[facility] LABORATORYCLIA [id number] [address] Anion gap [Moles/Vol] 6 mmol/L Normal 5-16 [facility] Comment on above: Order Comment: Speci men Type: BLOOD SPECIMENOrdering Facility: [facility] Address: [address] [place] [address] Performed By: #### 2 4323-8 ####[facility] LABORATORYCLIA [id number] [address] [place] AST [Catalytic activity/Vol] Normal [facility] Comment on above: Order Comment: Speci men Type: BLOOD SPECIMENOrdering Facility: [facility] Address: [address] [place] [address] Result Comment: Unab le to assay due to interference from hemolysis. Suggest reorder as clinically indicated. Results may be falsely depressed after the administration of Sulfasalazine and/or Sulfapyridine. Performed By: #### 2 4323-8 ####[facility] LABORATORYCLIA [id number] [place] [address] [place] Bilirubin [Mass/Vol] 0.2 mg/dL Normal 0.2-1.0 [facility] Comment on above: Order Comment: Speci men Type: BLOOD SPECIMENOrdering Facility: [facility] Address: [address] [address] Performed By: #### 2 4323-8 ####[facility] LABORATORYCLIA [id number] [place] [address] [place] Calcium [Mass/Vol] 8.6 mg/dL Normal 8.5-10.5 [facility] Comment on above: Order Comment: Speci men Type: BLOOD SPECIMENOrdering Facility: [facility] Address: [address] [address] Performed By: #### 2 4323-8 ####[facility] LABORATORYCLIA [id number] [place] [address] [place] Chloride [Moles/Vol] 112 mmol/L High 98-107 [facility] Comment on above: Order Comment: Speci men Type: BLOOD SPECIMENOrdering Facility: [facility] Address: [address] [place] [address] Performed By: #### 2 4323-8 ####[facility] LABORATORYCLIA [id number] [place] [address] [place] CO2 [Moles/Vol] 24 mmol/L Normal 21-32 [facility] Comment on above: Order Comment: Speci men Type: BLOOD SPECIMENOrdering Facility: [facility] Address: [address] [address] Performed By: #### 2 4323-8 ####[facility] LABORATORYCLIA [id number] [place] [address] [place] Creatinine [Mass/Vol] 0.91 mg/dL Normal 0.51-0.95 [facility] Comment on above: Order Comment: Speci men Type: BLOOD SPECIMENOrdering Facility: [facility] Address: [address] [place] [address] Result Comment: Janel ents receiving either N-Acetylcysteine (NAC) or Metamizole prior to venipuncture, may have falsely depressed results. Performed By: #### 2 4323-8 ####[facility] LABORATORYCLIA [id number] [place] [address] [place] ESTIMATED GLOMERULAR FILTRATION RATE 81 mL/min/1.73m??? Normal >=60 [facility] Comment on above: Order Comment: David pham Type: BLOOD SPECIMENOrdering Facility: [facility] Address: [address] [place] [address] Result Comment: Eliza mated Glomerular Filtration Rate (eGFR) is calculated using the 2020 CKD-EPI creatinine equation. This equation utilizes serum creatinine, sex, and age as parameters. The creatinine assay has traceable calibration to isotope dilution-mass spectrometry. Refer to KDIGO guidelines for clinical interpretation. In patients with unstable renal function, e.g. those with acute kidney injury, the eGFR may not accurately reflect actual GFR. Performed By: #### 2 4323-8 ####[facility] LABORATORYCLIA [id number] [place] [address] [place] Glucose [Mass/Vol] 123 mg/dL High 70-100 [facility] Comment on above: Order Comment: David pham Type: BLOOD SPECIMENOrdering Facility: [facility] Address: [address] [place] [address] Result Comment: The [place] Diabetes Association (ADA) provides guidance for cutoff values for fasting glucose and random glucose. The ADA defines fasting as no caloric intake for at least 8 hours. Fasting plasma glucose results between 100 to 125 [...] Standards of Medical Care in Diabetes 2016, [place] [employer]. Diabetes Care. 2016.39(Suppl 1). Results may be falsely elevated after the administration of Sulfapyridine. Results may be falsely depressed after the administration of Sulfasalazine. Performed By: #### 2 4323-8 ####[facility] LABORATORYCLIA [id number] [place] [address] [place] Potassium [Moles/Vol] Normal [facility] Comment on above: Order Comment: Speci men Type: BLOOD SPECIMENOrdering Facility: [facility] Address: [address] [address] Result Comment: Unab le to assay due to interference from hemolysis. Suggest reorder as clinically indicated. &XA&CALLED CRYSTAL TAVARES, NO K AND AST Performed By: #### 2 4323-8 ####[facility] LABORATORYCLIA [id number] [place] [address] [place] Protein [Mass/Vol] 6.1 g/dL Normal 6.0-8.5 [facility] Comment on above: Order Comment: Speci men Type: BLOOD SPECIMENOrdering Facility: [facility] Address: [address] [address] Performed By: #### 2 4323-8 ####[facility] LABORATORYCLIA [id number] [place] [address] [place] Sodium [Moles/Vol] 142 mmol/L Normal 136-145 [facility] Comment on above: Order Comment: Speci men Type: BLOOD SPECIMENOrdering Facility: [facility] Address: [address] [address] Performed By: #### 2 4323-8 ####[facility] LABORATORYCLIA [id number] [place] [address] [place] Urea nitrogen [Mass/Vol] 20 mg/dL Normal 7-26 [facility] Comment on above: Order Comment: Speci men Type: BLOOD SPECIMENOrdering Facility: [facility] Address: [address] [address] Performed By: #### 2 4323-8 ####[facility] LABORATORYCLIA [id number] [place] [address] [place] URINE CULTURE [CCL]on 2022 Bacteria identified Cx Nom (U) URCUL See Results Below See Below CULTURE, URINE Mixed microbiota, including predominantly: CULTURE, URINE MORGANELLA MORGANII >=100,000 CFU/ml Morganella morganii ORGANISM: MORGANELLA MORGANII ANTIBIOTIC KURT DILUTN KURT INTERP Ampicillin >=32 Resistant Cefazolin >=64 Resistant Ceftriaxone <=1 Susceptible Cefepime <=1 Susceptible Ertapenem <=0.5 Susceptible Meropenem <=0.25 Susceptible Piperacillin/Tazobac <=4 Susceptible Gentamicin <=1 Susceptible Tobramycin 4 Susceptible Trimeth sulfameth >=320 Resistant Ciprofloxacin >=4 Resistant Nitrofurantoin 128 Resistant This test was developed and its performance characteristics determined by the [facility] [place] ([facility]). It has not been cleared or approved by the FDA. -[facility] is regulated under CLIA as qualified to perform high-complexity testing. This test is used for clinical purposes. It should not be regarded as investigational or for research. SOURCE: URINE [facility] [address] [place] [address] Seth Whalen III, M.D. [id number] SEND TO IC YES Normal [facility] Comment on above: Performed By: #### 2 [id number] #### [facility],[address] [place] [address] CBC W Auto Differential pane l (Bld)on 12-19-2022 Basophils (Bld) [#/Vol] 0.07 10*3/uL Normal <0.11 [facility] Comment on above: Order Comment: Speci men Type: BLOOD SPECIMEN [facility]: [facility] Address: [address] [address] Performed By: #### 5 7021-8 #### [facility] CLIA [id number] [address] [place] [address] [place] Basophils/100 WBC (Bld) 0.6 % Normal [facility] Comment on above: Order Comment: Speci men Type: BLOOD SPECIMEN [facility]: [facility] Address: [address] [address] Performed By: #### 5 7021-8 #### [facility] CLIA [id number] [address] [place] [address] [place] [facility] OF [place]E Differential cell count method Nom (Bld) Auto Normal [facility] Comment on above: Order Comment: Speci men Type: BLOOD SPECIMEN [facility]: [facility] Address: [address] [address] Performed By: #### 5 7021-8 #### [facility] CLIA [id number] [address] [place] [address] [place] Eosinophils (Bld) [#/Vol] 0.34 10*3/uL Normal <0.46 [facility] Comment on above: Order Comment: Speci men Type: BLOOD SPECIMEN [facility]: [facility] Address: [address] [address] Performed By: #### 5 7021-8 #### [facility] CLIA [id number] [address] [place] [address] OF [place]E Eosinophils/100 WBC (Bld) 2.7 % Normal [facility] Comment on above: Order Comment: Speci men Type: BLOOD SPECIMEN [facility]: [facility] Address: [address] [place] [address] Performed By: #### 5 7021-8 #### [facility] CLIA [id number] [address] [place] [address] OF [place]E Erythrocyte distribution width (RBC) [Ratio] 14.6 % Normal 11.5-15.0 [facility] Comment on above: Order Comment: Speci men Type: BLOOD SPECIMEN [facility]: [facility] Address: [address] [place] [address] Performed By: #### 5 7021-8 #### [facility] CLIA [id number] [address] [place] [address] [place] Hematocrit (Bld) [Volume fraction] 35.9 % Low 36.0-46.0 [facility] Comment on above: Order Comment: Speci men Type: BLOOD SPECIMEN [facility]: [facility] Address: [address] [address] Performed By: #### 5 7021-8 #### [facility] CLIA [id number] [address] [place] [address] [place] Hemoglobin (Bld) [Mass/Vol] 11.8 g/dL Normal 11.5-15.5 [facility] Comment on above: Order Comment: Speci men Type: BLOOD SPECIMEN [facility]: [facility] Address: [address] [address] Performed By: #### 5 7021-8 #### [facility] CLIA [id number] [address] [place] [address] [place] Immature granulocytes (Bld) [#/Vol] 0.11 10*3/uL High <0.10 [facility] Comment on above: Order Comment: Speci men Type: BLOOD SPECIMEN [facility]: [facility] Address: [address] [address] Performed By: #### 5 7021-8 #### [facility] CLIA [id number] [address] [place] [address] [place] Immature granulocytes/100 WBC (Bld) 0.9 % Normal [facility] Comment on above: Order Comment: Speci men Type: BLOOD SPECIMEN [facility]: [facility] Address: [address] [address] Performed By: #### 5 7021-8 #### [facility] CLIA [id number] [address] [place] [address] [place] Lymphocytes (Bld) [#/Vol] 3.12 10*3/uL Normal 1.00-4.00 [facility] Comment on above: Order Comment: Speci men Type: BLOOD SPECIMEN [facility] Address: [address] [address] Performed By: #### 5 7021-8 #### [facility] CLIA [id number] [address] [place] [address] [place] Lymphocytes/100 WBC (Bld) 24.6 % Normal [facility] Comment on above: Order Comment: Speci men Type: BLOOD SPECIMEN [facility] Address: [address] [address] Performed By: #### 5 7021-8 #### [facility] CLIA [id number] [address] [place] [address] [place] MCH (RBC) [Entitic mass] 29.1 pg Normal 26.0-34.0 [facility] Comment on above: Order Comment: Speci men Type: BLOOD SPECIMEN [facility] Address: [address] [address] Performed By: #### 5 7021-8 #### [facility] CLIA [id number] [address] [place] [address] [place] MCHC (RBC) [Mass/Vol] 32.9 g/dL Normal 30.5-36.0 [facility] Comment on above: Order Comment: Speci men Type: BLOOD SPECIMEN [facility] Address: [address] [address] Performed By: #### 5 7021-8 #### [facility] CLIA [id number] [address] [place] [address] [place] MCV (RBC) [Entitic vol] 88.4 fL Normal 80.0-100.0 [facility] Comment on above: Order Comment: Speci men Type: BLOOD SPECIMEN Ordering [facility]: [facility] Address: [address] Performed By: #### 5 7021-8 #### [facility] CLIA [id number] [address] [place] [address] [place] Monocytes (Bld) [#/Vol] 1.01 10*3/uL High <0.87 [facility] Comment on above: Order Comment: Speci men Type: BLOOD SPECIMEN Ordering Facility: [facility] Address: [address] [place], [place] [address] Performed By: #### 5 7021-8 #### [facility] CLIA [id number] [address] [place] [address] [place] Monocytes/100 WBC (Bld) 8.0 % Normal [facility] Comment on above: Order Comment: Speci men Type: BLOOD SPECIMEN [facility] Address: [address] [address] Performed By: #### 5 7021-8 #### [facility] CLIA [id number] [address] [place] [address] [place] Neutrophils (Bld) [#/Vol] 8.04 10*3/uL High 1.45-7.50 [facility] Comment on above: Order Comment: Speci men Type: BLOOD SPECIMEN [facility] Address: [address] [place] [address] Performed By: #### 5 7021-8 #### [facility] CLIA [id number] [address] [place] [address] [place] Neutrophils/100 WBC (Bld) 63.2 % Normal [facility] Comment on above: Order Comment: Speci men Type: BLOOD SPECIMEN [facility] Address: [address] [place] [address] Performed By: #### 5 7021-8 #### [facility] CLIA [id number] [address] [place] [address] [place] Nucleated RBC (Bld) [#/Vol] 10*3/uL Normal <0.01 [facility] Comment on above: Order Comment: Speci men Type: BLOOD SPECIMEN [facility] Address: [address] [place] [address] Performed By: #### 5 7021-8 #### [facility] CLIA [id number] [address] [place] [address] [place] Nucleated RBC/100 WBC (Bld) [Ratio] 0.0 /100 WBC Normal [facility] Comment on above: Order Comment: Speci men Type: BLOOD SPECIMEN [facility] Address: [address] Performed By: #### 5 7021-8 #### [facility] CLIA [id number] [address] [place] [address] [facility] [place] Platelet mean volume (Bld) [Entitic vol] 10.6 fL Normal 9.0-12.7 [facility] Comment on above: Order Comment: Speci men Type: BLOOD SPECIMEN [facility] Address: [address] Performed By: #### 5 7021-8 #### [facility] CLIA [id number] [address] [place] [address] [place] Platelets (Bld) [#/Vol] 252 10*3/uL Normal 150-400 [facility] Comment on above: Order Comment: Speci men Type: BLOOD SPECIMEN [facility]ing [facility]: [facility] Address: [address] Performed By: #### 5 7021-8 #### [facility] CLIA [id number] [address] [place] [address] [place] RBC (Bld) [#/Vol] 4.06 10*6/uL Normal 3.90-5.20 [facility] Comment on above: Order Comment: Speci men Type: BLOOD SPECIMEN [facility]ing [facility] Address: [address] Performed By: #### 5 7021-8 #### [facility] CLIA [id number] [address] [place] [address] [place] WBC (Bld) [#/Vol] 12.69 10*3/uL High 3.70-11.00 [facility] Comment on above: Order Comment: Speci men Type: BLOOD SPECIMEN [facility]ing Facility: [facility] Address: [address] Performed By: #### 5 7021-8 #### [facility] CLIA [id number] [address] [place], [place] [address] [facility] CONSULTon 12-19-2022 CONSULT HNO ID: [id number] Author: Ramana Corona MD Service: Urology Author Type: Physician Type: Consults Filed: 12/19/2022 12:31 PM Note Text: UROLOGY INPATIENT CONSULT NOTE SERVICE DATE: 12/19/2022 SERVICE TIME: Subjective HISTORY OF PRESENT ILLNESS: Ms. Bailon is a 42 year old female who has a neurogenic bladder from spina bifida status post suprapubic catheter placement approximately 4 years ago and she has recurrent UTIs lifelong she also has a colostomy September 2021. The patient was having some discomfort lower back pain right greater than left patient did incidentally have a CT scan of the abdomen and pelvis on 12/12/2021 at [facility] that show 2 small nonobstructive right lower pole stones and some very slight dilation of the urinary system to the level of the bladder with no stones on the left but no stones. The patient eventually was at [facility] and was transferred to [facility] yesterday. She has cultures pending but no high spiking fevers overall the patient still has similar discomfort in the right flank greater than the left, No intervention is planned we will monitor the patient's progress. PAST MEDICAL HISTORY Diagnosis Date Amputation of left great toe ([facility]) 06/25/2020 Anxiety Arthritis started age 19 Bilateral leg edema 07/16/2018 Cervical radiculopathy 05/02/2013 Chronic pain 02/12/[address] ([facility]) 09/30/2021 Constipation due to outlet dysfunction 10/07/2021 Cyst of ovary 11/28/2011 Diabetic eye exam ([facility]) 06/17/2016 Last done: 01/25/2017 Diabetic eye exam (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 Will monitor. Lipomeningocele, sacral level 09/12/2013 Lumbago 02/12/2015 Medicare annual wellness visit, subsequent 02/28/2018 last done: 02/28/2018 Migraine without aura and without status migrainosus, not intractable 10/18/2016 Miscarriage Mixed hyperlipidemia 02/28/2018 Muscle weakness of left lower extremity 08/07/2013 Neck pain 05/02/2013 Neurogenic bladder 02/12/2015 Neurogenic bowel 01/06/2016 Neuropathy 02/12/2015 post back surgery with secondary infection. Seeing Dr. Gregg Non-compliance 09/02/2022 Even stated in endocrine note from 09/01/2022 Numbness and tingling of left arm and leg 08/07/2013 Obesity, Class II, BMI 35-39.9 02/12/2015 Panic attacks Paroxysmal SVT (supraventricular tachycardia) (HCC) 07/03/2017 Per 48 Hr event monitor 06/30/2017 Primary insomnia 02/17/2016 S/P hernia repair 12/11/2017 Spina bifida (HCC) 01/06/2016 Suprapubic catheter (HCC) Thyroid cyst 01/01/2018 Complex right sided cysts. US 12/2017, biopsy per Dr. Josue 01/23/2018 benign. Repeat US in a year. 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 nl AMPUTATION TOE,MT-P JT Left 02/11/2020 left big toe CATH, SUPRAPUBIC/CYSTOSCOPIC 11/07/2018 COLOSTOMY 10/01/2021 CYSTOSCOPY,REMV CALCULUS,COMPLIC 11/10/2020 DILATION AND CURETTAGE DXAND/THER NONOBSTETRIC Dilation AND curettage HERNIA REPAIR W/MESH 2019 LEXISCAN STRESS TEST 07/20/2018 negative NUCLEAR STRESS LEXISCAN (CARD) 10/24/2018 negative PAST SURGICAL HISTORY OF 2010 cholecystectomy PAST SURGICAL HISTORY OF 09/2012 back surgery x2 PAST SURGICAL HISTORY OF Left AND 02/2014 foot x2 PAST SURGICAL HISTORY OF 07/2015 Bowles stoma PAST SURGICAL HISTORY OF 09/30/2021 Laparoscopic end colostomy REPAIR UMBILICAL HERNIA 12/11/2017 STRESS ECHO 12/09/2019 Negative STRESS TEST 07/18/2017 normal STRESS TEST 03/15/2018 negative FAMILY HISTORY Problem Relation Age of Onset Cancer Father Skin Arthritis Mother Diabetes Mother Heart Mother Hypertension Mother Lipids Mother Stroke Mother Thyroid Mother Cancer Maternal Grandmother LIVER CANCER Cancer Maternal Uncle Great Uncle Cancer Maternal Uncle Great Uncle Anesthesia Problems No Family History Social History Tobacco Use Smoking status: Never Smokeless tobacco: Never Vaping Use Vaping Use: Never used Substance Use Topics Alcohol use: Not Currently Comment: social Drug use: Never Drainage Bag misc, 1 Each every 2 weeks., Disp: 12 Each, Rfl: 2 DU (more content not included)... Normal [facility] Comprehensive metabolic 2000 panelon 12-19-2022 Albumin [Mass/Vol] 3.1 g/dL Low 3.2-5.0 [facility] Comment on above: Order Comment: David pham Type: BLOOD SPECIMEN Ordering Facility: [facility] Address: [address] [place] [address] Performed By: #### 2 4323-8 #### [facility] CLIA [id number] [address] [place] [address] [place] ALP [Catalytic activity/Vol] 79 U/L Normal 45-117 [facility] Comment on above: Order Comment: David pham Type: BLOOD SPECIMEN Ordering Facility: [facility] Address: [address] [address] Performed By: #### 2 4323-8 #### [facility] CLIA [id number] [address] [place] [address] [place] ALT [Catalytic activity/Vol] 36 U/L Normal 13-61 [facility] Comment on above: Order Comment: David pham Type: BLOOD SPECIMEN Ordering Facility: [facility] Address: [address] [address] Result Comment: Resu lts may be falsely depressed after the administration of Sulfasalazine and/or Sulfapyridine. Performed By: #### 2 4323-8 #### [facility] CLIA [id number] [address] [place] [address] [place] Anion gap [Moles/Vol] 8 mmol/L Normal 5-16 [facility] Comment on above: Order Comment: Speci men Type: BLOOD SPECIMEN Ordering Facility: [facility] Address: [address] [place] [address] Performed By: #### 2 4323-8 #### [facility] CLIA [id number] [address] [place] [address] [place] AST [Catalytic activity/Vol] 27 U/L Normal 8-34 [facility] Comment on above: Order Comment: Speci men Type: BLOOD SPECIMEN Ordering Facility: [facility] Address: [address] [place] [address] Result Comment: Resu lts may be falsely depressed after the administration of Sulfasalazine and/or Sulfapyridine. Performed By: #### 2 4323-8 #### [facility] CLIA [id number] [address] [place] [address] [place] Bilirubin [Mass/Vol] 0.5 mg/dL Normal 0.2-1.0 [facility] Comment on above: Order Comment: Speci men Type: BLOOD SPECIMEN Ordering Facility: [facility] Address: [address] [place] [address] Performed By: #### 2 4323-8 #### [facility] CLIA [id number] [address] [place] [address] [place] Calcium [Mass/Vol] 8.9 mg/dL Normal 8.5-10.5 [facility] Comment on above: Order Comment: Speci men Type: BLOOD SPECIMEN Ordering Facility: [facility] Address: [address] [place] [address] Performed By: #### 2 4323-8 #### [facility] CLIA [id number] [address] [place] [address] [place] Chloride [Moles/Vol] 108 mmol/L High 98-107 [facility] Comment on above: Order Comment: Speci men Type: BLOOD SPECIMEN Ordering Facility: [facility] Address: [address] [address] Performed By: #### 2 4323-8 #### [facility] CLIA [id number] [address] [place] [address] [place] CO2 [Moles/Vol] 24 mmol/L Normal 21-32 [facility] Comment on above: Order Comment: Speci men Type: BLOOD SPECIMEN Ordering Facility: [facility] Address: [address] [address] Performed By: #### 2 4323-8 #### [facility] CLIA [id number] [address] [place] [address] [place] Creatinine [Mass/Vol] 0.99 mg/dL High 0.51-0.95 [facility] Comment on above: Order Comment: Speci men Type: BLOOD SPECIMEN Ordering Facility: [facility] Address: [address] [place] [address] Result Comment: Janel ents receiving either N-Acetylcysteine (NAC) or Metamizole prior to venipuncture, may have falsely depressed results. Performed By: #### 2 4323-8 #### [facility] CLIA [id number] [address] [place] [address] OF [place]E ESTIMATED GLOMERULAR FILTRATION RATE 74 mL/min/1.73m??? Normal >=60 [facility] Comment on above: Order Comment: Speci men Type: BLOOD SPECIMEN Ordering Facility: [facility] Address: [address] [place] [address] Result Comment: Eliza mated Glomerular Filtration Rate (eGFR) is calculated using the 2020 CKD-EPI creatinine equation. This equation utilizes serum creatinine, sex, and age as parameters. The creatinine assay has traceable calibration to isotope dilution-mass spectrometry. Refer to KDIGO guidelines for clinical interpretation. In patients with unstable renal function, e.g. those with acute kidney injury, the eGFR may not accurately reflect actual GFR. Performed By: #### 2 4323-8 #### [facility] CLIA [id number] [address] [place] [address] [place] Glucose [Mass/Vol] 138 mg/dL High 70-100 [facility] Comment on above: Order Comment: David pham Type: BLOOD SPECIMEN Ordering Facility: [facility] Address: [address] [place] [address] Result Comment: The [place] [employer] (ADA) provides guidance for cutoff values for fasting glucose and random glucose. The ADA defines fasting as no caloric intake for at least 8 hours. Fasting plasma glucose results between 100 to 125 [...] Standards of Medical Care in Diabetes 2016, [place] [employer]. Diabetes Care. 2016.39(Suppl 1). Results may be falsely elevated after the administration of Sulfapyridine. Results may be falsely depressed after the administration of Sulfasalazine. Performed By: #### 2 4323-8 #### [facility] CLIA [id number] [address] [place] [address] [place] Potassium [Moles/Vol] 4.3 mmol/L Normal 3.5-5.1 [facility] Comment on above: Order Comment: David pham Type: BLOOD SPECIMEN Ordering Facility: [facility] Address: [address] [place] [address] Performed By: #### 2 4323-8 #### [facility] CLIA [id number] [address] [place] [address] [place] Protein [Mass/Vol] 6.6 g/dL Normal 6.0-8.5 [facility] Comment on above: Order Comment: David pham Type: BLOOD SPECIMEN Ordering Facility: [facility] Address: [address] [place] [address] Performed By: #### 2 4323-8 #### [facility] CLIA [id number] [address] [place] [address] [place] Sodium [Moles/Vol] 140 mmol/L Normal 136-145 [facility] Comment on above: Order Comment: Speci men Type: BLOOD SPECIMEN Ordering Facility: [facility] Address: [address] [address] Performed By: #### 2 4323-8 #### [facility] CLIA [id number] [address] [place] [address] [place] Urea nitrogen [Mass/Vol] 20 mg/dL Normal 7-26 [facility] Comment on above: Order Comment: Speci men Type: BLOOD SPECIMEN Ordering Facility: [facility] Address: [address] [address] Performed By: #### 2 4323-8 #### [facility] CLIA [id number] [address] [place] [address] [place] Bacteria Ur Culton 3 Bacteria identified Cx Nom (U) ORGANISM ID: 1 >=100,000 CFU/ml Mixed microbiota No further workup. Mixed microbiota can be due to???urine???contaminati on with skin bacteria at time of collection or presence of a long-term urinary catheter. If a new culture is needed, please consider re-education of the patient on proper midstream collection technique or straight catheterization for???urine???collection . Normal [facility] Comment on above: Performed By: #### 6 30-4 #### [facility] CLIA [id number] [address] [place] [address] [place] CBC + DIFFon 12-18-2022 Baso # 0.20 x10EE3/UL High 0.00 - 0.10 [facility] Comment on above: Performed By: #### 2 56581 #### [facility],[address] [place] [address] Basophils/100 WBC (Bld) 1.3 % Normal 0.0 - 2.0 [facility] Comment on above: Performed By: #### 2 84787 #### [facility],[address] [place] [address] 19805 CBC + DIFF Normal [facility] Comment on above: Result Comment: CBC- COMPLETE BLOOD COUNT Performed By: #### 2 40783 #### [facility],[address] [place] [address] EO # 0.30 x10EE3/UL Normal 0.00 - 0.50 [facility] Comment on above: Performed By: #### 2 62568 #### [facility],[address] [place] [address] Eosinophils/100 WBC (Bld) 2.3 % Normal 0.0 - 7.0 [facility] Comment on above: Performed By: #### 2 14495 #### [facility],[address] [place], [place] [id number] Erythrocyte distribution width (RBC) [Ratio] 15.2 % Normal 12.0 - 15.6 [facility] Comment on above: Performed By: #### 2 95971 #### [facility],[address] [place] [address] Hematocrit (Bld) [Volume fraction] 39.3 % Normal 34.0 - 46.0 [facility] Comment on above: Performed By: #### 2 09688 #### [facility],[address] [place] [address] Hemoglobin (Bld) [Mass/Vol] 12.9 g/dL Normal 12.0 - 16.0 [facility] Comment on above: Performed By: #### 2 74116 #### [facility],[address] [place] [address] Lymph # 3.90 x10EE3/UL High 0.80 - 2.80 [facility] Comment on above: Performed By: #### 2 85515 #### [facility],[address] [place] [address] Lymphocytes/100 WBC (Bld) 26.0 % Normal 20.0 - 45.0 [facility] Comment on above: Performed By: #### 2 37127 #### [facility],[address] [place] [address] MANUAL DIFF N/A Normal [facility] Comment on above: Performed By: #### 2 74551 #### [facility],[address] [place] [address] MCH (RBC) [Entitic mass] 29 pg Normal 27 - 33 [facility] Comment on above: Performed By: #### 2 89000 #### [facility],[address] [place] [address] MCHC 33 X10 3 Normal 32 - 36 [facility] Comment on above: Performed By: #### 2 45161 #### [facility],[address] [place] [address] MCV (RBC) [Entitic vol] 88 fL Normal 80 - 99 [facility] Comment on above: Performed By: #### 2 68123 #### [facility],[address] [place] [address] [place] # 1.40 x10EE3/UL High 0.20 - 1.00 [facility] Comment on above: Performed By: #### 2 56998 #### [facility],[address] [place] [address] MONOS % 9.3 % Normal 0.0 - 10.0 [facility] Comment on above: Performed By: #### 2 01414 #### [facility],[address] [place], [place] [phone] Morphology Allen (Bld) [Interp] N/A Normal [facility] Comment on above: Performed By: #### 2 19397 #### [facility],[address] [place], [place] [phone] Neut # 9.10 x10EE3/UL High 1.50 - 7.10 [facility] Comment on above: Performed By: #### 2 64735 #### [facility],[address] [place] [address] Neutrophils/100 WBC (Bld) 61.1 % Normal 46.0 - 76.0 [facility] Comment on above: Performed By: #### 2 82802 #### [facility],[address] [place] [address] PLATELET 294 x10EE3/UL Normal 150 - 450 [facility] Comment on above: Performed By: #### 2 17829 #### [facility],[address] [place] [address] Platelet mean volume (Bld) [Entitic vol] 9.4 fL Normal 6.6 - 10.5 [facility] Comment on above: Result Comment: AUTO MATED DIFFERENTIAL Performed By: #### 2 83477 #### [facility],[address] [place] [address] RBC 4.45 x 10EE6/UL Normal 4.10 - 5.30 [facility] Comment on above: Performed By: #### 2 18258 #### [facility],[address] [place] [address] WBC 14.9 x 10EE3/UL High 4.5 - 10.8 [facility] Comment on above: Performed By: #### 2 51953 #### [facility],[address] [place] [address] CBC W Auto Differential pane l (Bld)on 12-18-2022 Basophils (Bld) [#/Vol] 0.07 10*3/uL Normal <0.11 [facility] Comment on above: Order Comment: Speci men Type: BLOOD SPECIMEN Ordering Facility: [facility] Address: [address] [place] [phone] Performed By: #### 5 7021-8 #### [facility] CLIA [id number] [address] [place] [address] [place] Basophils/100 WBC (Bld) 0.6 % Normal [facility] Comment on above: Order Comment: Speci men Type: BLOOD SPECIMEN Ordering Facility: [facility] Address: [address] [address] Performed By: #### 5 7021-8 #### [facility] CLIA [id number] [address] [place] [address] OF [place]E Differential cell count method Nom (Bld) Auto Normal [facility] Comment on above: Order Comment: Speci men Type: BLOOD SPECIMEN Ordering Facility: [facility] Address: [address] [address] Performed By: #### 5 7021-8 #### [facility] CLIA [id number] [address] [place] [address] [facility] OF [place]E Eosinophils (Bld) [#/Vol] 0.26 10*3/uL Normal <0.46 [facility] Comment on above: Order Comment: Speci men Type: BLOOD SPECIMEN Ordering Facility: [facility] Address: [address] [address] Performed By: #### 5 7021-8 #### [facility] CLIA [id number] [address] [place] [address] OF NAE Eosinophils/100 WBC (Bld) 2.1 % Normal [facility] Comment on above: Order Comment: Speci men Type: BLOOD SPECIMEN Ordering Facility: [facility] Address: [address] [address] Performed By: #### 5 7021-8 #### [facility] CLIA [id number] [address] [place] [address] [place] Erythrocyte distribution width (RBC) [Ratio] 14.6 % Normal 11.5-15.0 [facility] Comment on above: Order Comment: Speci men Type: BLOOD SPECIMEN Ordering Facility: [facility] Address: [address] [address] Performed By: #### 5 7021-8 #### [facility] CLIA [id number] [address] [place] [address] [place] Hematocrit (Bld) [Volume fraction] 37.5 % Normal 36.0-46.0 [facility] Comment on above: Order Comment: Speci men Type: BLOOD SPECIMEN Ordering Facility: [facility] Address: [address] [place] [address] Performed By: #### 5 7021-8 #### [facility] CLIA [id number] [address] [place] [address] [place] Hemoglobin (Bld) [Mass/Vol] 12.4 g/dL Normal 11.5-15.5 [facility] Comment on above: Order Comment: Speci men Type: BLOOD SPECIMEN Ordering Facility: [facility] Address: [address] [place] [address] Performed By: #### 5 7021-8 #### [facility] CLIA [id number] [address] [place] [address] [place] Immature granulocytes (Bld) [#/Vol] 0.12 10*3/uL High <0.10 [facility] Comment on above: Order Comment: Speci men Type: BLOOD SPECIMEN Ordering Facility: [facility] Address: [address] [place] [address] Performed By: #### 5 7021-8 #### [facility] CLIA [id number] [address] [place] [address] [place] Immature granulocytes/100 WBC (Bld) 1.0 % Normal [facility] Comment on above: Order Comment: Speci men Type: BLOOD SPECIMEN Ordering Facility: [facility] Address: [address] [address] Performed By: #### 5 7021-8 #### [facility] CLIA [id number] [address] [place] [address] [place] Lymphocytes (Bld) [#/Vol] 2.55 10*3/uL Normal 1.00-4.00 [facility] Comment on above: Order Comment: Speci men Type: BLOOD SPECIMEN Ordering Facility: [facility] Address: [address] [place] [address] Performed By: #### 5 7021-8 #### [facility] CLIA [id number] [address] [place] [address] OF NAE Lymphocytes/100 WBC (Bld) 20.5 % Normal [facility] Comment on above: Order Comment: Speci men Type: BLOOD SPECIMEN Ordering Facility: [facility] Address: [address] [place] [address] Performed By: #### 5 7021-8 #### [facility] CLIA [id number] [address] [place] [address] OF NAE MCH (RBC) [Entitic mass] 29.3 pg Normal 26.0-34.0 [facility] Comment on above: Order Comment: Speci men Type: BLOOD SPECIMEN Ordering Facility: [facility] Address: [address] [place] [address] Performed By: #### 5 7021-8 #### [facility] CLIA [id number] [address] [place] [address] [place] MCHC (RBC) [Mass/Vol] 33.1 g/dL Normal 30.5-36.0 [facility] Comment on above: Order Comment: Speci men Type: BLOOD SPECIMEN Ordering Facility: [facility] Address: [address] [address] Performed By: #### 5 7021-8 #### [facility] CLIA [id number] [address] [place] [address] [place] MCV (RBC) [Entitic vol] 88.7 fL Normal 80.0-100.0 [facility] Comment on above: Order Comment: Speci men Type: BLOOD SPECIMEN Ordering Facility: [facility] Address: [address] [place] [address] Performed By: #### 5 7021-8 #### [facility] CLIA [id number] [address] [place] [address] OF NAE Monocytes (Bld) [#/Vol] 0.77 10*3/uL Normal <0.87 [facility] Comment on above: Order Comment: Speci men Type: BLOOD SPECIMEN Ordering Facility: [facility] Address: [address] [address] Performed By: #### 5 7021-8 #### [facility] CLIA [id number] [address] [place] [address] [place] Monocytes/100 WBC (Bld) 6.2 % Normal [facility] Comment on above: Order Comment: Speci men Type: BLOOD SPECIMEN Ordering Facility: [facility] Address: [address] Performed By: #### 5 7021-8 #### [facility] CLIA [id number] [address] [place] [address] [place] Neutrophils (Bld) [#/Vol] 8.65 10*3/uL High 1.45-7.50 [facility] Comment on above: Order Comment: Speci men Type: BLOOD SPECIMEN Ordering Facility: [facility] Address: [address] Performed By: #### 5 7021-8 #### [facility] CLIA [id number] [address] [place] [address] [place] Neutrophils/100 WBC (Bld) 69.6 % Normal [facility] Comment on above: Order Comment: Speci men Type: BLOOD SPECIMEN Ordering Facility: [facility] Address: [address] Performed By: #### 5 7021-8 #### [facility] CLIA [id number] [address] [place] [address] [place] Nucleated RBC (Bld) [#/Vol] 10*3/uL Normal <0.01 [facility] Comment on above: Order Comment: Speci men Type: BLOOD SPECIMEN Ordering Facility: [facility] Address: [address] Performed By: #### 5 7021-8 #### [facility] CLIA [id number] [address] [place] [address] [place] Nucleated RBC/100 WBC (Bld) [Ratio] 0.0 /100 WBC Normal [facility] Comment on above: Order Comment: Speci men Type: BLOOD SPECIMEN Ordering Facility: [facility] Address: [address] [place] [address] Performed By: #### 5 7021-8 #### [facility] CLIA [id number] [address] [place] [address] [place] Platelet mean volume (Bld) [Entitic vol] 10.7 fL Normal 9.0-12.7 [facility] Comment on above: Order Comment: Speci men Type: BLOOD SPECIMEN Ordering Facility: [facility] Address: [address] [place] [address] Performed By: #### 5 7021-8 #### [facility] CLIA [id number] [address] [place] [address] [place] Platelets (Bld) [#/Vol] 263 10*3/uL Normal 150-400 [facility] Comment on above: Order Comment: Speci men Type: BLOOD SPECIMEN Ordering Facility: [facility] Address: [address] [place] [address] Performed By: #### 5 7021-8 #### [facility] CLIA [id number] [address] [place] [address] [place] RBC (Bld) [#/Vol] 4.23 10*6/uL Normal 3.90-5.20 [facility] Comment on above: Order Comment: Speci men Type: BLOOD SPECIMEN Ordering Facility: [facility] Address: [address] [place] [address] Performed By: #### 5 7021-8 #### [facility] CLIA [id number] [address] [place] [address] [place] WBC (Bld) [#/Vol] 12.42 10*3/uL High 3.70-11.00 [facility] Comment on above: Order Comment: Speci men Type: BLOOD SPECIMEN Ordering Facility: [facility] Address: [place] [address] Performed By: #### 5 7021-8 #### [facility] CLIA [id number] [address] [place] [address] [place] CMP with eGFRon 12-18-2022 AGE 42 years Normal [facility] Comment on above: Performed By: #### 2 12094 #### [facility],[address] [place] [address]254 Albumin [Mass/Vol] 3.2 g/dL Low 3.4 - 5.0 [facility] Comment on above: Performed By: #### 2 25210 #### [facility],[address] [place], [place] [id number] Albumin/Globulin [Mass ratio] 0.7 {ratio} Low 0.9 - 1.6 [facility] Comment on above: Performed By: #### 2 56273 #### [facility],[address] [place] [address]7597 ALK PHOS 104 U/L Normal 46 - 116 [facility] Comment on above: Performed By: #### 2 88502 #### [facility],[address] [place] [address]443 ALT [Catalytic activity/Vol] 28 U/L Normal 14 - 59 [facility] Comment on above: Performed By: #### 2 56512 #### [facility],[address] [place] [address] Anion gap [Moles/Vol] 19 mmol/L Normal 10 - 20 [facility] Comment on above: Performed By: #### 2 68219 #### [facility],[address] [place] [address] AST [Catalytic activity/Vol] 36 U/L Normal 13 - 39 [facility] Comment on above: Performed By: #### 2 15221 #### [facility],[address] [place], [place] [id number] B/C RATIO 13 ratio Normal 0 - 30 [facility] Comment on above: Performed By: #### 2 82354 #### [facility],[address] [place], [place] [phone] Bilirubin [Mass/Vol] 0.3 mg/dL Normal 0.2 - 1.0 [facility] Comment on above: Performed By: #### 2 67758 #### [facility],[address] [place] [address] Calcium [Mass/Vol] 8.7 mg/dL Normal 8.5 - 10.1 [facility] Comment on above: Performed By: #### 2 63716 #### [facility],[address] [place] [address] Chloride [Moles/Vol] 102 mmol/L Normal 98 - 107 [facility] Comment on above: Performed By: #### 2 67944 #### [facility],[address] [place] [address] CMP with eGFR Normal [facility] Comment on above: Result Comment: COMP REHENSIVE METABOLIC PANEL Performed By: #### 2 94537 #### [facility],[address] [place], [place] [phone] CO2 [Moles/Vol] 21.6 mmol/L Normal 21.0 - 32.0 [facility] Comment on above: Performed By: #### 2 20453 #### [facility],[address] [place], [place] [phone] Creatinine [Mass/Vol] 1.00 mg/dL Normal 0.55 - 1.02 [facility] Comment on above: Performed By: #### 2 06712 #### [facility],[address] [place], [place] [address] GFR/1.73 sq M.predicted among non-blacks MDRD (S/P/Bld) [Vol rate/Area] mL/min/{1.73_m2} Normal 60 - 999 [facility] Comment on above: Performed By: #### 2 32628 #### [facility],[address] [place] [address] Result Comment: ACCO RDING TO THE NATIONAL KIDNEY DISEASE EDUCATION PROGRAM(NKDE), A NORMAL eGFR IS A VALUE GREATER THAN OR EQUAL TO 60 ML/MIN/1.73 SQ METERS. CHRONIC KIDNEY DISEASE: <60mL/MIN/1.73 SQ METERS KIDNEY FAILURE: <15mL/MIN/1.73 SQ METERS THIS TEST SHOULD ONLY BE USED FOR PATIENTS 18 YEARS OF AGE AND OLDER. Globulin (S) [Mass/Vol] 4.8 g/dL High 1.5 - 3.8 [facility] Comment on above: Performed By: #### 2 03891 #### [facility],[address] [place] [address] Glucose [Mass/Vol] 206 mg/dL High 74 - 106 [facility] Comment on above: Performed By: #### 2 47520 #### [facility],[address] [place] [address]160 Potassium [Moles/Vol] 4.4 mmol/L Normal 3.5 - 5.1 [facility] Comment on above: Performed By: #### 2 63997 #### [facility],[address] [place] [address]74 Protein [Mass/Vol] 8.0 g/dL Normal 6.4 - 8.2 [facility] Comment on above: Performed By: #### 2 89738 #### [facility],[address] [place] [address]89 Sodium [Moles/Vol] 138 mmol/L Normal 136 - 145 [facility] Comment on above: Performed By: #### 2 29949 #### [facility],[address] [place] [address]1823 Urea nitrogen [Mass/Vol] 13 mg/dL Normal 7 - 18 [facility] Comment on above: Performed By: #### 2 43030 #### [facility],[address] [place] [address] ABDOMEN/PELVIS WO 12-18 CT ABDOMEN/PELVIS [address] [address] Patient: DEBBY BAILON Phone#: : 1980 Age: 42 Gender: F Pt. Type: ER Account: [id number] Location: 052 Ordering: DR. ELIZABETH PEDROZA Exam Date: 12/18/2022/4:34 Family Phys: Charge Code: [id number] Physician: [place] Order #: [id number] Dose#: 18.4 mGy PROCEDURE: CT ABDOMEN/PELVIS WITHOUT CONTRAST COMPARISON: None. INDICATIONS: Flank pain. TECHNIQUE: CT images were created without intravenous contrast. All CT scans at this facility use dose modulation, iterative reconstruction, and/or weight based dosing when appropriate to reduce radiation dose to as low as reasonably achievable. IV CONTRAST: No IV contrast used,0ml TOTAL DOSE: 18.4 CTDIvol(mGy) FINDINGS: LIVER: Normal. No enlargement, atrophy, abnormal density, or significant focal lesion. BILIARY: Normal. No visible dilatation or calcification. PANCREAS: Normal. No lesion, fluid collection, ductal dilatation, or atrophy. SPLEEN: Normal. No enlargement or focal lesion. KIDNEYS: Right renal atrophy is present. There is a nonobstructing right renal calculus. There is no evidence of hydronephrosis or ureteral calculus. ADRENALS: Normal. No mass or enlargement. AORTA/VASCULAR: Normal. No aneurysm. RETROPERITONEUM: Normal. No mass or adenopathy. BOWEL/MESENTERY: Upper abdominal ostomy site is present. Nonobstructive bowel is herniated into the ostomy sac. Surgical sutures present at the pelvis. ABDOMINAL WALL: Small umbilical hernia with fat is present. Hernia repair is evident. URINARY BLADDER: Suprapubic catheter is present in the bladder. PELVIC NODES: Normal. No adenopathy. PELVIC ORGANS: Normal. No visible mass. Pelvic organs appropriate for patient age. BONES: There has been laminectomy at the L3, L4 , L5 and S1 levels. LUNG BASES: Normal. No visible pulmonary or pleural disease. OTHER: Negative. CONCLUSION: Continued Report - Page 2 of 2 Patient: DEBBY BAILON Phone#: : 1980 Age: 42 Gender: F Pt. Type: ER Account: [id number] Location: 052 Ordering: DR. ELIZABETH PEDROZA Exam Date: 12/18/2022/4:34 Family Phys: Charge Code: 118691 Physician: [place] Order #: [id number] Dose#: 18.4 mGy 1. Mild right renal atrophy. There is a nonobstructing right renal calculus. 2. There is no evidence of hydronephrosis or ureteral calculi. 3. Upper abdominal ostomy site is present. 4. Suprapubic catheter is present. Dictated by: Phoebe Stroud MD on 12/18/2022 at 4:45 Approved by: Phoebe Stroud MD on 12/18/2022 at 5:05 Normal [facility] CULTURE BLOOD [SARWAT]on Microscopic examination of blood, culture CULTURE BLOOD [SARWAT] _BLOOD CULTURE_ [facility] FOR SCANNED REPORT 12/26/22.1359.TLJ.COMPLE TE Normal [facility] Comment on above: Performed By: #### 2 26424 #### [facility],[address] [place] [address] Microscopic examination of blood, culture CULTURE BLOOD [SARWAT] _BLOOD CULTURE_ [facility] AND ATTACHMENTS FOR SCANNED REPORT 12/26/22.1400.TLJ.COMPLE TE Normal [facility] Comment on above: Performed By: #### 2 97049 #### [facility],[address] [place], [place] [id number] Comprehensive metabolic 2000 panelon 12-18-2022 Albumin [Mass/Vol] 3.3 g/dL Normal 3.2-5.0 [facility] Comment on above: Order Comment: Speci men Type: BLOOD SPECIMEN Ordering Facility: [facility] Address: [address] [place] [address] Performed By: #### 2 4323-8 #### [facility] CLIA [id number] [address] [place] [address] [place] [facility] ALP [Catalytic activity/Vol] 90 U/L Normal 45-117 [facility] Comment on above: Order Comment: Speci men Type: BLOOD SPECIMEN Ordering Facility: [facility] Address: [address] [place] [address] Performed By: #### 2 4323-8 #### [facility] CLIA [id number] [address] [place] [address] [place] [facility] ALT [Catalytic activity/Vol] 36 U/L Normal 13-61 [facility] Comment on above: Order Comment: Speci men Type: BLOOD SPECIMEN Ordering Facility: [facility] Address: [address] [place] [address] Result Comment: Resu lts may be falsely depressed after the administration of Sulfasalazine and/or Sulfapyridine. Performed By: #### 2 4323-8 #### [facility] CLIA [id number] [address] [place] [address] Anion gap [Moles/Vol] 6 mmol/L Normal 5-16 [facility] Comment on above: Order Comment: Speci men Type: BLOOD SPECIMEN Ordering Facility: [facility] Address: [address] [place] [address] Performed By: #### 2 4323-8 #### [facility] CLIA [id number] [address] [place] [address] [place] AST [Catalytic activity/Vol] 34 U/L Normal 8-34 [facility] Comment on above: Order Comment: Speci men Type: BLOOD SPECIMEN Ordering Facility: [facility] Address: [address] [place] [address] Result Comment: Resu lts may be falsely depressed after the administration of Sulfasalazine and/or Sulfapyridine. Performed By: #### 2 4323-8 #### [facility] CLIA [id number] [address] [place] [address] [place] Bilirubin [Mass/Vol] 0.3 mg/dL Normal 0.2-1.0 [facility] Comment on above: Order Comment: Speci men Type: BLOOD SPECIMEN Ordering Facility: [facility] Address: [address] [address] Performed By: #### 2 4323-8 #### [facility] CLIA [id number] [address] [place] [address] [place] Calcium [Mass/Vol] 9.2 mg/dL Normal 8.5-10.5 [facility] Comment on above: Order Comment: Speci men Type: BLOOD SPECIMEN Ordering Facility: [facility] Address: [address] [address] Performed By: #### 2 4323-8 #### [facility] CLIA [id number] [address] [place] [address] [place] Chloride [Moles/Vol] 109 mmol/L High 98-107 [facility] Comment on above: Order Comment: Speci men Type: BLOOD SPECIMEN Ordering Facility: [facility] Address: [address] [address] Performed By: #### 2 4323-8 #### [facility] CLIA [id number] [address] [place] [address] [place] CO2 [Moles/Vol] 24 mmol/L Normal 21-32 [facility] Comment on above: Order Comment: Speci men Type: BLOOD SPECIMEN Ordering Facility: [facility] Address: [address] [address] Performed By: #### 2 4323-8 #### [facility] CLIA [id number] [address] [place] [address] [place] Creatinine [Mass/Vol] 1.01 mg/dL High 0.51-0.95 [facility] Comment on above: Order Comment: Speci men Type: BLOOD SPECIMEN Ordering Facility: [facility] Address: [address] [place] [address] Result Comment: Janel ents receiving either N-Acetylcysteine (NAC) or Metamizole prior to venipuncture, may have falsely depressed results. Performed By: #### 2 4323-8 #### [facility] CLIA [id number] [address] [place] [address] [place] ESTIMATED GLOMERULAR FILTRATION RATE 72 mL/min/1.73m??? Normal >=60 [facility] Comment on above: Order Comment: David pham Type: BLOOD SPECIMEN Ordering Facility: [facility] Address: [address] [place] [address] Result Comment: Eliza mated Glomerular Filtration Rate (eGFR) is calculated using the 2020 CKD-EPI creatinine equation. This equation utilizes serum creatinine, sex, and age as parameters. The creatinine assay has traceable calibration to isotope dilution-mass spectrometry. Refer to KDIGO guidelines for clinical interpretation. In patients with unstable renal function, e.g. those with acute kidney injury, the eGFR may not accurately reflect actual GFR. Performed By: #### 2 4323-8 #### [facility] CLIA [id number] [address] [place] [address] [place] Glucose [Mass/Vol] 185 mg/dL High 70-100 [facility] Comment on above: Order Comment: David pham Type: BLOOD SPECIMEN Ordering Facility: [facility] Address: [address] [place] [address] Result Comment: The [place] Diabetes Association (ADA) provides guidance for cutoff values for fasting glucose and random glucose. The ADA defines fasting as no caloric intake for at least 8 hours. Fasting plasma glucose results between 100 to 125 [...] Standards of Medical Care in Diabetes 2016, [place] [employer]. Diabetes Care. 2016.39(Suppl 1). Results may be falsely elevated after the administration of Sulfapyridine. Results may be falsely depressed after the administration of Sulfasalazine. Performed By: #### 2 4323-8 #### [facility] CLIA [id number] [address] [place] [address] [place] Potassium [Moles/Vol] 4.1 mmol/L Normal 3.5-5.1 [facility] Comment on above: Order Comment: Speci men Type: BLOOD SPECIMEN Ordering Facility: [facility] Address: [address] [place] [address] Performed By: #### 2 4323-8 #### [facility] CLIA [id number] [address] [place] [address] [place] Protein [Mass/Vol] 7.0 g/dL Normal 6.0-8.5 [facility] Comment on above: Order Comment: Speci men Type: BLOOD SPECIMEN Ordering Facility: [facility] Address: [address] [place] [address] Performed By: #### 2 4323-8 #### [facility] CLIA [id number] [address] [place] [address] [place] Sodium [Moles/Vol] 139 mmol/L Normal 136-145 [facility] Comment on above: Order Comment: Speci men Type: BLOOD SPECIMEN Ordering Facility: [facility] Address: [address] [place] [address] Performed By: #### 2 4323-8 #### [facility] CLIA [id number] [address] [place] [address] [place] Urea nitrogen [Mass/Vol] 19 mg/dL Normal 7-26 [facility] Comment on above: Order Comment: Speci men Type: BLOOD SPECIMEN Ordering Facility: [facility] Address: [address] [place] [address] Performed By: #### 2 4323-8 #### [facility] CLIA [id number] [address] [place] [address] [place] HISTORY PHYSICALon 3 HISTORY PHYSICAL HNO ID: [id number] Author: Miguel Angel Villar MD Service: ? Author Type: Physician Type: HANDP Filed: 12/18/2022 1:52 PM Note Text: HISTORY AND PHYSICAL EXAMINATION SERVICE DATE: 12/18/2022 SERVICE TIME: 1:38 PM PRIMARY CARE PHYSICIAN: Will Brannon MD Subjective CHIEF COMPLAINT: Back pain with lower abdominal pain HPI: This is a 42 year old female with history of Spina bifida discovered at age 32 complicated with neurogenic bladder s/p suprapubic cath 3 years ago and neuropathic bowel s/p colostomy 2021, DM complicated with neuropathy, Hx of recurrent UTI since age of 19, Depression/Anxiety, Thyroid disorder who presents with 1 day history of lower back and lower abdominal pain associated with change in urine to purulent with nasea but no fever, chills. She had recent UTI in October. She got change her cath monthly with last change was 12/02 this month. She went to [facility] but due to insurance issue she got transferred to [facility] from outside hospital in chart. FUNCTIONAL STATUS: Independent PAST MEDICAL HISTORY Diagnosis Date Amputation of left great toe ([facility]) 06/25/2020 Anxiety Arthritis started age 19 Bilateral leg edema 07/16/2018 Cervical radiculopathy 05/02/2013 Chronic pain 02/12/[address] ([facility]) 09/30/2021 Constipation due to outlet dysfunction 10/07/2021 Cyst of ovary 11/28/2011 Diabetic eye exam ([facility]) 06/17/2016 Last done: 01/25/2017 Diabetic eye exam (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 Will monitor. Lipomeningocele, sacral level 09/12/2013 Lumbago 02/12/2015 Medicare annual wellness visit, subsequent 02/28/2018 last done: 02/28/2018 Migraine without aura and without status migrainosus, not intractable 10/18/2016 Miscarriage Mixed hyperlipidemia 02/28/2018 Muscle weakness of left lower extremity 08/07/2013 Neck pain 05/02/2013 Neurogenic bladder 02/12/2015 Neurogenic bowel 01/06/2016 Neuropathy 02/12/2015 post back surgery with secondary infection. Seeing Dr. Gregg Non-compliance 09/02/2022 Even stated in endocrine note from 09/01/2022 Numbness and tingling of left arm and leg 08/07/2013 Obesity, Class II, BMI 35-39.9 02/12/2015 Panic attacks Paroxysmal SVT (supraventricular tachycardia) (HCC) 07/03/2017 Per 48 Hr event monitor 06/30/2017 Primary insomnia 02/17/2016 S/P hernia repair 12/11/2017 Spina bifida (HCC) 01/06/2016 Suprapubic catheter (HCC) Thyroid cyst 01/01/2018 Complex right sided cysts. US 12/2017, biopsy per Dr. oJsue 01/23/2018 benign. Repeat US in a year. 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 nl AMPUTATION TOE,MT-P JT Left 02/11/2020 left big toe CATH, SUPRAPUBIC/CYSTOSCOPIC 11/07/2018 COLOSTOMY 10/01/2021 CYSTOSCOPY,REMV CALCULUS,COMPLIC 11/10/2020 DILATION AND CURETTAGE DXAND/THER NONOBSTETRIC Dilation AND curettage HERNIA REPAIR W/MESH 2019 LEXISCAN STRESS TEST 07/20/2018 negative NUCLEAR STRESS LEXISCAN (CARD) 10/24/2018 negative PAST SURGICAL HISTORY OF 2011 cholecystectomy PAST SURGICAL HISTORY OF 09/2012 back surgery x2 PAST SURGICAL HISTORY OF Left AND 02/2014 foot x2 PAST SURGICAL HISTORY OF 07/2015 Bowles stoma PAST SURGICAL HISTORY OF 09/30/2021 Laparoscopic end colostomy REPAIR UMBILICAL HERNIA 12/11/2017 STRESS ECHO 12/09/2019 Negative STRESS TEST 07/18/2017 normal STRESS TEST 03/15/2018 negative FAMILY HISTORY Problem Relation Age of Onset Cancer Father Skin Arthritis Mother Diabetes Mother Heart Mother Hypertension Mother Lipids Mother Stroke Mother Thyroid Mother Cancer Maternal Grandmother LIVER CANCER Cancer Maternal Uncle Great Uncle Cancer Maternal Uncle Great Uncle Anesthesia Problems No Family History Social History Tobacco Use Smoking status: Never Smokeless tobacco: Never Vaping Use Vaping Use: Never used Substance Use Topics Alcohol use: Not Currently Comment: social Drug use: Never Drainage Bag misc, 1 Each every 2 weeks., Disp: 12 Each, Rfl: 2 DULoxetine (CYMBALTA) 30 mg capsule, Take 30 mg by mouth once daily., Disp: , Rfl: loratadine (CLARITIN) 1 (more content not included)... Normal [facility] LACTATEon 12-18-2022 Lactate [Moles/Vol] 1.1 mmol/L Normal 0.4 - 2.0 [facility] Comment on above: Performed By: #### 2 93568 #### [facility],[address] [place] [address] Lactate [Moles/Vol] 2.2 mmol/L High 0.4 - 2.0 [facility] Comment on above: Result Comment: LACT ATE 3 HR NOTIFIED TO: LACTATE 3 HR NOTIFIED BY: Performed By: #### 2 09963 #### [facility],[address] [place] [address] LIPASEon 12-18-2022 Lipase [Catalytic activity/Vol] 133.0 U/L Normal 73.0 - 393 [facility] Comment on above: Performed By: #### 2 17318 #### [facility],[address] [place] [address] 36056 Lactate (Bld) [Moles/Vol]on 12-18-2022 Lactate [Moles/Vol] 1.7 mmol/L Normal 0.4-2.0 [facility] Comment on above: Order Comment: Speci men Type: BLOOD SPECIMEN Ordering Facility: [facility] Address: [place] [address] Performed By: #### 3 2693-4 #### [facility] LABORATORY CLIA [id number] [address] [place] [address] [place] NT-proBNPon 12-18-2022 Natriuretic peptide B (Bld) [Mass/Vol] 41 pg/mL Normal 0 - 125 [facility] Comment on above: Performed By: #### 2 [id number] #### [facility],[address] [place] [address] 79718 TROPONIN I, HIGH SENSITIVITY on 12-18-2022 HS TROPONIN 5.0 pg/mL Normal 0.0 - 51.4 [facility] Comment on above: Performed By: #### 2 [id number] #### [facility],[address] [place] [address] 22840 URINALYSISon 12-18-2022 Amorphous 1+ Normal [facility] Comment on above: Performed By: #### 2 80750 #### [facility],[address] [place] [address] 20037 Bacteria 4+ Normal [facility] Comment on above: Performed By: #### 2 52021 #### [facility],[address] [place] [address] 14170 Bilirubin Ql (U) Negative Normal NORMAL: NEGATIVE [facility] Comment on above: Performed By: #### 2 77743 #### [facility],[address] [place] [address] 14566 Casts NONE Normal [facility] Comment on above: Result Comment: MANY CALCIUM OXYLATE Performed By: #### 2 [id number] #### [facility],[address] [place] [address] 30279 Clarity (U) TURBID Abnormal NORMAL: CLEAR [facility] Comment on above: Performed By: #### 2 89598 #### [facility],[address] [place] [address] 54217 Color (U) YELLOW Normal NORMAL: YELLOW [facility] Comment on above: Performed By: #### 2 96105 #### [facility],[address] [place] [address] 19066 Crystals LM Nom (Urine sed) SEE BELOW Normal [facility] Comment on above: Performed By: #### 2 07756 #### [facility],[address] [place], [place] [id number] Epi Cells MANY Normal [facility] Comment on above: Performed By: #### 2 78060 #### [facility],[address] [place], [place] [phone] Glucose Ql (U) 1000 Abnormal NORMAL: NORMAL [facility] Comment on above: Performed By: #### 2 54576 #### [facility],[address] [place], [place] [phone] Hemoglobin Ql (U) 50 Abnormal NORMAL: NEGATIVE [facility] Comment on above: Performed By: #### 2 66234 #### [facility],[address] [place] [address] 31192 Ketone Negative Normal NORMAL: NEGATIVE [facility] Comment on above: Performed By: #### 2 87762 #### [facility],[address] [place] [address] 44451 Leukocytes 500 Abnormal NORMAL: NEGATIVE [facility] Comment on above: Performed By: #### 2 81082 #### [facility],[address] [place] [address] 11181 Mucous NONE Normal [facility] Comment on above: Performed By: #### 2 61463 #### [facility],[address] [place] [address] 60566 Nitrite Ql (U) Negative Normal NORMAL: NEGATIVE [facility] Comment on above: Performed By: #### 2 61142 #### [facility],[address] [place], [place] [phone] pH (U) 8.0 [pH] Normal NORMAL: 5.0-8.0 [facility] Comment on above: Performed By: #### 2 65875 #### [facility],[address] [place] [address] Protein Ql (U) 100 Abnormal NORMAL: NEGATIVE [facility] Comment on above: Performed By: #### 2 29055 #### [facility],[address] [place] [address] Rbc 15-20 Normal 0-3/hpf [facility] Comment on above: Performed By: #### 2 54898 #### [facility],[address] [place] [address] Sp Isabella 1.015 Normal NORMAL: 1.010-1.03 0 [facility] Comment on above: Performed By: #### 2 63576 #### [facility],[address] [place] [address] Specimen Type Catheter Normal [facility] Comment on above: Performed By: #### 2 57424 #### [facility],[address] [place] [address] Urinalysis dipstick W Reflex Microscopic panel (U) SEE BELOW Normal [facility] Comment on above: Result Comment: MICR OSCOPIC Performed By: #### 2 60061 #### [facility],[address] [place] [address] Urobilinog NORMAL Normal NORMAL: NORMAL [facility] Comment on above: Performed By: #### 2 09573 #### [facility],[address] [place] [address] WBC (U) [#/Vol] /uL Normal 0-5/hpf [facility] Comment on above: Performed By: #### 2 30864 #### [facility],[address] [place] [address] Yeast NONE Normal [facility] Comment on above: Performed By: #### 2 05870 #### [facility],[address] [facility] [address] URINALYSIS, REFLEX MICROSCOP ICon 12-18-2022 Bacteria LM.HPF (Urine sed) [#/Area] Few Abnormal None Seen [facility] Comment on above: Order Comment: Speci men Type: URINE SPECIMEN Ordering Facility: [facility] Address: [address] [place] [address] Performed By: #### L [id number] #### [facility] CLIA [id number] [address] [place] [address] [place] Bilirubin Ql (U) Negative Normal Negative [facility] Comment on above: Order Comment: Speci men Type: URINE SPECIMEN Ordering Facility: [facility] Address: [address] [place] [address] Performed By: #### L [id number] #### [facility] CLIA [id number] [address] [place] [address] [place] Clarity (Unsp spec) Cloudy Abnormal Clear [facility] Comment on above: Order Comment: Speci men Type: URINE SPECIMEN Ordering Facility: [facility] Address: [address] [place] [address] Performed By: #### L [id number] #### [facility] CLIA [id number] [address] [place] [address] [place] Color (U) Yellow Normal Yellow [facility] Comment on above: Order Comment: Speci men Type: URINE SPECIMEN Ordering Facility: [facility] Address: [address] [address] Performed By: #### L [id number] #### [facility] CLIA [id number] [address] [place] [address] [place] Epithelial cells LM.HPF (Urine sed) [#/Area] Few Normal [facility] Comment on above: Order Comment: Speci men Type: URINE SPECIMEN Ordering Facility: [facility] Address: [address] [place] [address] Performed By: #### L [id number] #### [facility] CLIA [id number] [address] [place] Glucose Test strip (U) [Mass/Vol] 1+ Abnormal Negative [facility] Comment on above: Order Comment: Speci men Type: URINE SPECIMEN Ordering Facility: [facility] Address: [address] [address] Performed By: #### L [id number] #### [facility] CLIA [id number] [address] [place] [address] [place] Hemoglobin Ql (U) 1+ Abnormal Negative [facility] Comment on above: Order Comment: Speci men Type: URINE SPECIMEN Ordering Facility: [facility] Address: [address] [address] Performed By: #### L [id number] #### [facility] CLIA [id number] [address] [place] [address] [place] Ketones Ql (U) Negative Normal Negative [facility] Comment on above: Order Comment: Speci men Type: URINE SPECIMEN Ordering Facility: [facility] Address: [address] [address] Performed By: #### L [id number] #### [facility] CLIA [id number] [address] [place] [address] [place] Leukocyte esterase Test strip Ql (U) 3+ Abnormal Negative [facility] Comment on above: Order Comment: Speci men Type: URINE SPECIMEN Ordering Facility: [facility] Address: [address] [address] Performed By: #### L [id number] #### [facility] CLIA [id number] [address] [place] [address] [place] Nitrite Ql (U) Positive Abnormal Negative [facility] Comment on above: Order Comment: Speci men Type: URINE SPECIMEN Ordering Facility: [facility] Address: [address] [address] Performed By: #### L [id number] #### [facility] CLIA [id number] [address] [place] [address] [place] pH (U) 6.0 [pH] Normal 5.0-8.0 [facility] Comment on above: Order Comment: Speci men Type: URINE SPECIMEN Ordering Facility: [facility] Address: [address] [place] [address] Performed By: #### L [id number] #### [facility] CLIA [id number] [address] [place] [address] [place] Protein (U) [Mass/Vol] 1+ Abnormal Negative [facility] Comment on above: Order Comment: Speci men Type: URINE SPECIMEN Ordering Facility: [facility] Address: [address] [place] [address] Performed By: #### L [id number] #### [facility] CLIA [id number] [address] [place] [address] [place] RBC LM.HPF (Urine sed) [#/Area] 6-10 /HPF Abnormal 0-3 /HPF [facility] Comment on above: Order Comment: Speci men Type: URINE SPECIMEN Ordering Facility: [facility] Address: [address] [place] [address] Performed By: #### L [id number] #### [facility] CLIA [id number] [address] [place] [address] [place] Specific gravity (U) [Rel density] 1.014 Normal 1.005-1.03 0 [facility] Comment on above: Order Comment: Speci men Type: URINE SPECIMEN Ordering Facility: [facility] Address: [address] [place] [address] Performed By: #### L [id number] #### [facility] CLIA [id number] [address] [place] [address] [place] Urobilinogen Ql (U) Negative Normal Negative [facility] Comment on above: Order Comment: Speci men Type: URINE SPECIMEN Ordering Facility: [facility] Address: [address] [place] [address] Performed By: #### L [id number] #### [facility] CLIA [id number] [address] [place] [address] [place] WBC LM.HPF (Urine sed) [#/Area] /[HPF] Abnormal 0-5 /HPF [facility] Comment on above: Order Comment: Speci men Type: URINE SPECIMEN Ordering Facility: [facility] Address: [address] [place], [place] [id number] Performed By: #### L [id number] #### [facility] CLIA [id number] [address] [id number] [place] Absolute lymphocyte countOrd ered By: Dre Deal on 12-12-2022 Lymphocytes Auto (Unsp spec) [#/Vol] 3.24 10*3/uL 0.83-4.51 [facility] Amorphous sediment detection in urine sediment by light microscopyOrdered By: Dre Deal on 12-12-2022 Amorphous sediment LM Ql (Urine sed) 1+ PHOS [facility] Basophil percentageOrdered B y: Dre Deal on 12-12-2022 Basophil percentage 50-100 SEEN /hpf 0-5 [facility] Basophil percentage [facility] Comment on above: Test not performedSP ECIMEN WAS GROSSLY HEMOLYZED, REDRAW FOR K IF INDICATEDPrevious reported result: TNP mmol/LEdited by: MARY on 12/12/22:1957 Basophils/100 WBC (Bld) 0.7 % 0-1 [facility] Chloride [Moles/Vol] 103 mmol/L 98-107 [facility] Eosinophils/100 WBC (Bld) 1.6 % 0-5 [facility] Glucose [Mass/Vol] 282 mg/dL 74-106 [facility] Comment on above: Glucose result great er than or equal to 200 mg/dLsuggests DIABETES MELLITUS per A.D.A. criteria. Neutrophils (Bld) [#/Vol] 10.1 10*3/uL 2.0-7.7 [facility] Neutrophils/100 WBC (Bld) 67.3 % 47-70 [facility] Sodium [Moles/Vol] 131 mmol/L 136-145 [facility] WBC (Bld) [#/Vol] 15.0 10*3/uL 4.4-11.0 [facility] Beta hCG serum qualOrdered B y: Dre Deal on 12-12-2022 Beta HCG ( test) Ql Negative [facility] Bilirubin Test strip Ql (U)O rdered By: Dre Deal on 12-12-2022 Bilirubin Ql (U) Negative Negative [facility] Blood erythrocytes count (nu mber/volume)Ordered By: Dre Deal on 12-12-2022 RBC (Bld) [#/Vol] 4.79 10*6/uL 4.2-5.4 [facility] Blood hemoglobin measurement (mass/volume)Ordered By: Dre Deal on 12-12-2022 Hemoglobin (Bld) [Mass/Vol] 13.9 g/dL 12.0-15.0 [facility] Blood lymphocytes/100 leukoc ytesOrdered By: Dre Deal on 12-12-2022 Lymphocytes/100 WBC (Bld) 21.6 % 19-41 [facility] Blood monocytes/100 leukocyt esOrdered By: Dre Deal on 12-12-2022 Monocytes/100 WBC (Bld) 8.2 % 0-10 [facility] Blood platelet mean volumeOr dered By: Dre Deal on 12-12-2022 Platelet mean volume (Bld) [Entitic vol] 11.6 fL 6.2-12.0 [facility] Culture, urineOrdered By: Dominic Deal on 12-12-2022 Bacteria identified Cx Nom (U) Providencia rettgeri [facility] Determination of erythrocyte mean corpuscular volume (MCV)Ordered By: Dre Deal on 12-12-2022 MCV (RBC) [Entitic vol] 88.9 fL 81-99 [facility] Hematocrit Auto (Bld) [Volum e fraction]Ordered By: Dre Deal on 12-12-2022 Hematocrit (Bld) [Volume fraction] 42.6 % 37-47 [facility] Ketones Test strip Ql (U)Ord ered By: Dre Deal on 12-12-2022 Ketones Ql (U) Negative Negative [facility] Laboratory - Chemistry and C hemistry - challengeOrdered By: Dre Deal on 12-12-2022 CO2 [Moles/Vol] 21.0 mmol/L 21.0-32.0 [facility] Urea nitrogen/Creatinine [Mass ratio] 9.3 mg/mg 10-20 [facility] Laboratory - Hematology and Cell countsOrdered By: Dre Deal on 12-12-2022 Erythrocyte distribution width (RBC) [Entitic vol] 46.5 fL 35.1-43.9 [facility] Erythrocyte distribution width (RBC) [Ratio] 14.4 % 11.6-14.6 [facility] Immature granulocytes/100 WBC (Bld) 0.600 % 0.0-0.9 [facility] Comment on above: IG% - Immature Granu locytes (promyelocytes, myelocytes and metamyelocytes) > 1% indicates that a LEFT SHIFT is Present. MCH (RBC) [Entitic mass] 29.0 pg 27.0-32.0 [facility] Nucleated RBC/100 WBC (Bld) [Ratio] 0 % 0-5 [facility] MCHC Auto (RBC) [Mass/Vol]Or dered By: Dre Deal on 12-12-2022 MCHC (RBC) [Mass/Vol] 32.6 g/dL 32-36 [facility] Mucus LM Ql (Urine sed)Order ed By: Dre Deal on 12-12-2022 Mucus Ql (Urine sed) 0 SEEN /hpf [facility] Nitrite Test strip Ql (U)Ord ered By: Dre Deal on 12-12-2022 Nitrite Ql (U) Positive Negative [facility] No Panel InformationOrdered By: Dre Deal on 12-12-2022 Estimated Creatinine Clearance Calc 57.59 ml/min [facility] Estimated GFR (MDRD) Amer 81 mL/min >60 [facility] Comment on above: GFR Calc Estimated GFR (MDRD) Non-Af Amer 67 mL/min >60 [facility] Comment on above: Non- GFR Calc Platelets bldOrdered By: Dre Deal on 12-12-2022 Platelets (Bld) [#/Vol] 189 10*3/uL 150-450 [facility] Protein Test strip Ql (U)Ord ered By: Dre Deal on 12-12-2022 Protein Ql (U) 100 mg/dl Negative [facility] Serum or plasma calcium thi urement (mass/volume)Ordered By: Dre Deal on 12-12-2022 Calcium [Mass/Vol] 10.1 mg/dL 8.5-10.1 [facility] Serum or plasma creatinine m easurement (mass/volume)Ordered By: Dre Deal on 12-12-2022 Creatinine [Mass/Vol] 0.97 mg/dL 0.55-1.02 [facility] Comment on above: The validity of the calculated GFR & GFRAA in patients over 70 years has not been determined. Clinical correlation is essential. Serum or plasma urea nitroge n measurement (mass/volume)Ordered By: Dre Deal on 12-12-2022 Urea nitrogen [Mass/Vol] 9 mg/dL 7-18 [facility] Squamous epithelial cells de tection in urine sediment by light microscopyOrdered By: Dre Deal on 12-12-2022 Epithelial cells.squamous LM Ql (Urine sed) 0-5 SEEN /hpf 5-10 [facility] Thin prep Papanicolaou smear with manual screeningOrdered By: Dre Deal on 12-12-2022 Thin prep Papanicolaou smear with manual screening 7 5-15 [facility] Urine blood detectionOrdered By: Dre Deal on 12-12-2022 RBC Ql (U) 250 /ul Negative [facility] RBC Ql (U) 10-25 SEEN /hpf 0-5 [facility] Urine clarityOrdered By: Dre Deal on 12-12-2022 Clarity (U) Sl. Cloudy Clear [facility] Urine color determinationOrd ered By: Dre Deal on 12-12-2022 Color (U) Yellow Yellow [facility] Urine glucose detectionOrder ed By: Dre Deal on 12-12-2022 Glucose Ql (U) 1000 mg/dl Normal [facility] Urine leukocyte esterase det ection by dipstickOrdered By: Dre Deal on 12-12-2022 Leukocyte esterase Test strip Ql (U) 500 /ul Negative [facility] Urine pHOrdered By: Dre zimmerman on 12-12-2022 pH (U) 7.0 [pH] 5.0 - 8.0 [facility] Urine sediment bacteria coun t by microscopy (number/high power field)Ordered By: Dre Deal on 12-12-2022 Bacteria LM.HPF (Urine sed) [#/Area] 2 /[HPF] None Seen [facility] Urine specific gravity measu rementOrdered By: Dre Deal on 12-12-2022 Specific gravity (U) [Rel density] 1.010 1.002-1.03 0 [facility] Urobilinogen Auto test strip Ql (U)Ordered By: Dre Deal on 12-12-2022 Urobilinogen Ql (U) Normal mg/dl Normal [facility] LABORATORYOrdered By: SYSTEM SYSTEM on 12-10-2022 Albumin BCP dye [Mass/Vol] 3.7 G/dL Invalid Interpretation Code 3.5 - 5.0 G/dL AO ADM SS Albumin/Globulin [Mass ratio] 0.9 {ratio} Invalid Interpretation Code 1.1 - 2.5 ratio AO ADM SS ALP [Catalytic activity/Vol] 118 U/L Invalid Interpretation Code 40 - 135 U/L AO ADM SS ALT With P-5'-P [Catalytic activity/Vol] 49 U/L Invalid Interpretation Code 14 - 59 U/L AO ADM SS AST With P-5'-P [Catalytic activity/Vol] 24 U/L Invalid Interpretation Code 10 - 40 U/L AO ADM SS Basophil, Absolute 0.1 103/mcL Invalid Interpretation Code 0.0 - 0.2 10^3/mcL AO Workflow SS Basophils/100 WBC (Bld) 0.8 % Invalid Interpretation Code 0.0 - 2.5 % AO Workflow SS Bilirubin [Mass/Vol] 0.3 mg/dL Invalid Interpretation Code 0.2 - 1.0 mg/dL AO ADM SS Calcium [Mass/Vol] 9.7 mg/dL Invalid Interpretation Code 8.4 - 10.2 mg/dL AO ADM SS Chloride [Moles/Vol] 99 mmol/L Invalid Interpretation Code 98 - 107 mmol/L AO ADM SS CO2 [Moles/Vol] 27 mmol/L Invalid Interpretation Code 22 - 29 mmol/L AO ADM SS Creatinine [Mass/Vol] 1.18 mg/dL Invalid Interpretation Code 0.55 - 1.02 mg/dL AO ADM SS Electrolyte Balance 9.0 mEq/L Invalid Interpretation Code 4.0 - 15.0 mEq/L AO ADM SS Eosinophil, Absolute 0.3 103/mcL Invalid Interpretation Code 0.0 - 0.4 10^3/mcL AO Workflow SS Eosinophils/100 WBC (Bld) 2.4 % Invalid Interpretation Code 0.0 - 7.0 % AO Workflow SS Erythrocyte distribution width (RBC) [Ratio] 15.5 % Invalid Interpretation Code 11.5 - 14.5 % AO Workflow SS GFR/1.73 sq M.predicted among blacks MDRD (S/P/Bld) [Vol rate/Area] 61 ml/min/1.73sqm Invalid Interpretation Code AO Chemistry S GFR/1.73 sq M.predicted among non-blacks MDRD (S/P/Bld) [Vol rate/Area] 50 ml/min/1.73sqm Invalid Interpretation Code AO Chemistry S Globulin 4.1 G/dL Invalid Interpretation Code AO ADM SS Glucose [Mass/Vol] 377 mg/dL Invalid Interpretation Code 70 - 105 mg/dL AO ADM SS Hematocrit (Bld) [Volume fraction] 38.0 % Invalid Interpretation Code 37.0 - 47.0 % AO Workflow SS Hemoglobin (Bld) [Mass/Vol] 12.8 G/dL Invalid Interpretation Code 12.0 - 16.0 G/dL AO Workflow SS Lipase [Catalytic activity/Vol] 51 U/L Invalid Interpretation Code 16 - 77 U/L AO ADM SS Lymphocyte, Absolute 3.0 103/mcL Invalid Interpretation Code 0.8 - 3.9 10^3/mcL AO Workflow SS Lymphocytes/100 WBC (Bld) 25.7 % Invalid Interpretation Code 10.0 - 50.0 % AO Workflow SS MCH (RBC) [Entitic mass] 29.5 pg Invalid Interpretation Code 27.0 - 31.2 pg AO Workflow SS MCHC 33.7 G/dL Invalid Interpretation Code 33.0 - 37.0 G/dL AO Workflow SS MCV (RBC) [Entitic vol] 87.4 fL Invalid Interpretation Code 80.0 - 94.0 fL AO Workflow SS Monocyte distribution width Auto (Bld) [Entitic vol] 21.11 Invalid Interpretation Code 0.00 - 20.00 AO Workflow SS Comment on above: Result Comment: For adults in ED, MDW>20.0 may be associated with a higher risk of sepsis during the first 12hrs of hospital admission Monocyte, Absolute 1.3 103/mcL Invalid Interpretation Code 0.2 - 1.0 10^3/mcL AO Workflow SS Monocytes/100 WBC (Bld) 11.0 % Invalid Interpretation Code 1.7 - 13.0 % AO Workflow SS Neutrophil, Absolute 7.1 103/mcL Invalid Interpretation Code 2.9 - 6.2 10^3/mcL AO Workflow SS Neutrophils/100 WBC (Bld) 60.1 % Invalid Interpretation Code 37.0 - 80.0 % AO Workflow SS Platelet mean volume (Bld) [Entitic vol] 9.3 fL Invalid Interpretation Code 7.4 - 10.4 fL AO Workflow SS Platelets (Bld) [#/Vol] 214 103/mcL Invalid Interpretation Code 130 - 400 10^3/mcL AO Workflow SS Potassium [Moles/Vol] 5.1 mmol/L Invalid Interpretation Code 3.5 - 5.1 mmol/L AO ADM SS Protein [Mass/Vol] 7.8 G/dL Invalid Interpretation Code 6.4 - 8.2 G/dL AO ADM SS RBC (Bld) [#/Vol] 4.35 106/mcL Invalid Interpretation Code 4.20 - 5.40 10^6/mcL AO Workflow SS Sodium [Moles/Vol] 135 mmol/L Invalid Interpretation Code 136 - 145 mmol/L AO ADM SS Urea nitrogen [Mass/Vol] 15 mg/dL Invalid Interpretation Code 7 - 18 mg/dL AO ADM SS Urea nitrogen/Creatinine [Mass ratio] 13 ratio Invalid Interpretation Code 7 - 27 ratio AO ADM SS WBC (Bld) [#/Vol] 11.8 103/mcL Invalid Interpretation Code 4.6 - 10.8 10^3/mcL AO Workflow SS LABORATORYOrdered By: Dl Gonzalez on 12-10-2022 Appearance (U) Slightly Cloudy *ABN* (12/10/22 12:32 AM) Invalid Interpretation Code Clear AO Auto Urine SS Bacteria LM.HPF (Urine sed) [#/Area] 4 /[HPF] Invalid Interpretation Code AO Auto Urine SS Bilirubin Ql (U) Negative (12/10/22 12:32 AM) Invalid Interpretation Code Negative AO Auto Urine SS Color (U) Yellow (12/10/22 12:32 AM) Invalid Interpretation Code AO Auto Urine SS Glucose Test strip (U) [Mass/Vol] >=1000 mg/dL Invalid Interpretation Code Negativemg /dL AO Auto Urine SS HCG ( test) Ql Negative (12/10/22 12:32 AM) Invalid Interpretation Code AO Manual Urine SS Hemoglobin Auto test strip (U) [Mass/Vol] Trace *ABN* (12/10/22 12:32 AM) Invalid Interpretation Code Negative AO Auto Urine SS Ketones Ql (U) Negative Invalid Interpretation Code Negativemg /dL AO Auto Urine SS test (u) int Not detected Invalid Interpretation Code AO Manual Urine SS UA Leuk Est Small *ABN* (12/10/22 12:32 AM) Invalid Interpretation Code Negative AO Auto Urine SS UA Nitrite Positive *ABN* (12/10/22 12:32 AM) Invalid Interpretation Code Negative AO Auto Urine SS UA pH 7.0 (12/10/22 12:32 AM) Invalid Interpretation Code 5.0 - 8.0 AO Auto Urine SS UA Protein Negative Invalid Interpretation Code Negativemg /dL AO Auto Urine SS UA RBC 0-5 /HPF Invalid Interpretation Code None Seen/HPF AO Auto Urine SS UA Spec Grav 1.015 (12/10/22 12:32 AM) Invalid Interpretation Code 1.015-1.02 5 AO Auto Urine SS UA Specimen Type Clean Catch (12/10/22 12:32 AM) Invalid Interpretation Code AO Auto Urine SS UA Squam Epithelial 0-5 /HPF Invalid Interpretation Code None Seen/HPF AO Auto Urine SS UA Urobilinogen 0.2 E.U./dL Invalid Interpretation Code 0.2-1.0E.U ./dL AO Auto Urine SS WBC LM.HPF (Urine sed) [#/Area] 15-25 /HPF Invalid Interpretation Code None Seen/HPF AO Auto Urine SS LABORATORYOrdered By: SYSTEM SYSTEM on 11-22-2022 Chloride [Moles/Vol] 103 mmol/L Invalid Interpretation Code 98 - 107 mmol/L AO ADM SS CO2 [Moles/Vol] 26 mmol/L Invalid Interpretation Code 22 - 29 mmol/L AO ADM SS Creatinine [Mass/Vol] 1.03 mg/dL Invalid Interpretation Code 0.55 - 1.02 mg/dL AO ADM SS Electrolyte Balance 8.0 mEq/L Invalid Interpretation Code 4.0 - 15.0 mEq/L AO ADM SS Glucose [Mass/Vol] 345 mg/dL Invalid Interpretation Code 70 - 105 mg/dL AO ADM SS Potassium [Moles/Vol] 3.6 mmol/L Invalid Interpretation Code 3.5 - 5.1 mmol/L AO ADM SS Sodium [Moles/Vol] 137 mmol/L Invalid Interpretation Code 136 - 145 mmol/L AO ADM SS Urea nitrogen [Mass/Vol] 11 mg/dL Invalid Interpretation Code 7 - 18 mg/dL AO ADM SS Urea nitrogen/Creatinine [Mass ratio] 11 ratio Invalid Interpretation Code 7 - 27 ratio AO ADM SS LABORATORYOrdered By: Dl Gonzalez on 11-22-2022 Appearance (U) Clear (11/22/22 12:15 AM) Invalid Interpretation Code Clear AO Auto Urine SS Bacteria LM.HPF (Urine sed) [#/Area] 4 /[HPF] Invalid Interpretation Code AO Auto Urine SS Basophil, Absolute 0.0 103/mcL Invalid Interpretation Code 0.0 - 0.2 10^3/mcL AO Workflow SS Basophils/100 WBC (Bld) 0.5 % Invalid Interpretation Code 0.0 - 2.5 % AO Workflow SS Bilirubin Ql (U) Negative (11/22/22 12:15 AM) Invalid Interpretation Code Negative AO Auto Urine SS Calcium.ionized (Bld) [Moles/Vol] 1.15 mmol/L Invalid Interpretation Code 1.12 - 1.32 mmol/L AO Blood Gas SS Color (U) Yellow (11/22/22 12:15 AM) Invalid Interpretation Code AO Auto Urine SS Eosinophil, Absolute 0.4 103/mcL Invalid Interpretation Code 0.0 - 0.4 10^3/mcL AO Workflow SS Eosinophils/100 WBC (Bld) 3.0 % Invalid Interpretation Code 0.0 - 7.0 % AO Workflow SS Erythrocyte distribution width (RBC) [Ratio] 14.2 % Invalid Interpretation Code 11.5 - 14.5 % AO Workflow SS Glucose Test strip (U) [Mass/Vol] 500 mg/dL Invalid Interpretation Code Negativemg /dL AO Auto Urine SS HCG ( test) Ql Negative (11/22/22 12:15 AM) Invalid Interpretation Code AO Manual Urine SS Hematocrit (Bld) [Volume fraction] 39.2 % Invalid Interpretation Code 37.0 - 47.0 % AO Workflow SS Hemoglobin (Bld) [Mass/Vol] 13.2 G/dL Invalid Interpretation Code 12.0 - 16.0 G/dL AO Workflow SS Hemoglobin Auto test strip (U) [Mass/Vol] Trace *ABN* (11/22/22 12:15 AM) Invalid Interpretation Code Negative AO Auto Urine SS Ketones Ql (U) Negative Invalid Interpretation Code Negativemg /dL AO Auto Urine SS Lymphocyte, Absolute 3.8 103/mcL Invalid Interpretation Code 0.8 - 3.9 10^3/mcL AO Workflow SS Lymphocytes/100 WBC (Bld) 26.6 % Invalid Interpretation Code 10.0 - 50.0 % AO Workflow SS MCH (RBC) [Entitic mass] 28.9 pg Invalid Interpretation Code 27.0 - 31.2 pg AO Workflow SS MCHC 33.7 G/dL Invalid Interpretation Code 33.0 - 37.0 G/dL AO Workflow SS MCV (RBC) [Entitic vol] 85.8 fL Invalid Interpretation Code 80.0 - 94.0 fL AO Workflow SS Monocyte, Absolute 1.1 103/mcL Invalid Interpretation Code 0.2 - 1.0 10^3/mcL AO Workflow SS Monocytes/100 WBC (Bld) 7.9 % Invalid Interpretation Code 1.7 - 13.0 % AO Workflow SS Neutrophil, Absolute 8.8 103/mcL Invalid Interpretation Code 2.9 - 6.2 10^3/mcL AO Workflow SS Neutrophils/100 WBC (Bld) 61.8 % Invalid Interpretation Code 37.0 - 80.0 % AO Workflow SS Platelet mean volume (Bld) [Entitic vol] 9.4 fL Invalid Interpretation Code 7.4 - 10.4 fL AO Workflow SS Platelets (Bld) [#/Vol] 254 103/mcL Invalid Interpretation Code 130 - 400 10^3/mcL AO Workflow SS test (u) int Not detected Invalid Interpretation Code AO Manual Urine SS RBC (Bld) [#/Vol] 4.57 106/mcL Invalid Interpretation Code 4.20 - 5.40 10^6/mcL AO Workflow SS UA Leuk Est Trace *ABN* (11/22/22 12:15 AM) Invalid Interpretation Code Negative AO Auto Urine SS UA Nitrite Positive *ABN* (11/22/22 12:15 AM) Invalid Interpretation Code Negative AO Auto Urine SS UA pH 7.0 (11/22/22 12:15 AM) Invalid Interpretation Code 5.0 - 8.0 AO Auto Urine SS UA Protein Trace mg/dL Invalid Interpretation Code Negativemg /dL AO Auto Urine SS UA RBC 0-5 /HPF Invalid Interpretation Code None Seen/HPF AO Auto Urine SS UA Spec Grav 1.020 (11/22/22 12:15 AM) Invalid Interpretation Code 1.015-1.02 5 AO Auto Urine SS UA Specimen Type Catheter (11/22/22 12:15 AM) Invalid Interpretation Code AO Auto Urine SS UA Squam Epithelial None Seen /HPF Invalid Interpretation Code None Seen/HPF AO Auto Urine SS UA Urobilinogen 0.2 E.U./dL Invalid Interpretation Code 0.2-1.0E.U ./dL AO Auto Urine SS WBC (Bld) [#/Vol] 14.3 103/mcL Invalid Interpretation Code 4.6 - 10.8 10^3/mcL AO Workflow SS WBC LM.HPF (Urine sed) [#/Area] 10-15 /HPF Invalid Interpretation Code None Seen/HPF AO Auto Urine SS Absolute lymphocyte countOrd ered By: Agustin Aguilar on 10-15-2022 Lymphocytes Auto (Unsp spec) [#/Vol] 2.80 10*3/uL 0.83-4.51 [facility] Basophil percentageOrdered B y: Agustin Aguilar on 10-15-2022 Basophils/100 WBC (Bld) 0.7 % 0-1 [facility] Bilirubin [Mass/Vol] 0.20 mg/dL 0.20-1.00 [facility] Comment on above: For patients on eltr ombopag therapy, use of Dimension [place] TBIL is not recommended. Chloride [Moles/Vol] 104 mmol/L 98-107 [facility] Eosinophils/100 WBC (Bld) 1.1 % 0-5 [facility] Glucose [Mass/Vol] 293 mg/dL 74-106 [facility] Comment on above: Glucose result great er than or equal to 200 mg/dLsuggests DIABETES MELLITUS per A.D.A. criteria. Neutrophils (Bld) [#/Vol] 7.8 10*3/uL 2.0-7.7 [facility] Neutrophils/100 WBC (Bld) 65.7 % 47-70 [facility] Potassium [Moles/Vol] 4.4 mmol/L 3.5-5.1 [facility] Protein [Mass/Vol] 8.5 g/dL 6.4-8.2 [facility] Sodium [Moles/Vol] 135 mmol/L 136-145 [facility] WBC (Bld) [#/Vol] 11.9 10*3/uL 4.4-11.0 [facility] Blood erythrocytes count (nu mber/volume)Ordered By: Agustin Aguilar on 10-15-2022 RBC (Bld) [#/Vol] 4.55 10*6/uL 4.2-5.4 [facility] Blood hemoglobin measurement (mass/volume)Ordered By: Agustin Aguilar on 10-15-2022 Hemoglobin (Bld) [Mass/Vol] 13.1 g/dL 12.0-15.0 [facility] Blood lymphocytes/100 leukoc ytesOrdered By: Agustin Aguilar on 10-15-2022 Lymphocytes/100 WBC (Bld) 23.5 % 19-41 [facility] Blood monocytes/100 leukocyt esOrdered By: Agustin Aguilar on 10-15-2022 Monocytes/100 WBC (Bld) 7.8 % 0-10 [facility] Blood platelet mean volumeOr dered By: Agustin Aguilar on 10-15-2022 Platelet mean volume (Bld) [Entitic vol] 10.5 fL 6.2-12.0 [facility] Determination of erythrocyte mean corpuscular volume (MCV)Ordered By: Agustin Aguilar on 10-15-2022 MCV (RBC) [Entitic vol] 86.8 fL 81-99 [facility] Hematocrit Auto (Bld) [Volum e fraction]Ordered By: Agustin Aguilar on 10-15-2022 Hematocrit (Bld) [Volume fraction] 39.5 % 37-47 [facility] Laboratory - Chemistry and C hemistry - challengeOrdered By: Agustin Aguilar on 10-15-2022 ALP [Catalytic activity/Vol] 92 U/L 45-117 [facility] ALT [Catalytic activity/Vol] 29 U/L 13-56 [facility] CO2 [Moles/Vol] 26.0 mmol/L 21.0-32.0 [facility] Globulin (S) [Mass/Vol] 5.0 g/dL 2.2-4.2 [facility] Lipase [Catalytic activity/Vol] 41 U/L 13-75 [facility] Comment on above: Please note:LIPASE r evised reference range effective 22. New Lipase methodology. Expected to produce lower values than the previous assay method. NEW Reference Range: 13 - 75 U/L Urea nitrogen/Creatinine [Mass ratio] 14.5 mg/mg 10-20 [facility] - Hematology and Cell countsOrdered By: Agustin Aguilar on 10-15-2022 Erythrocyte distribution width (RBC) [Entitic vol] 45.0 fL 35.1-43.9 [facility] Erythrocyte distribution width (RBC) [Ratio] 14.1 % 11.6-14.6 [facility] Immature granulocytes/100 WBC (Bld) 1.200 % 0.0-0.9 [facility] Comment on above: IG% - Immature Granu locytes (promyelocytes, myelocytes and metamyelocytes) > 1% indicates that a LEFT SHIFT is Present. MCH (RBC) [Entitic mass] 28.8 pg 27.0-32.0 [facility] Nucleated RBC/100 WBC (Bld) [Ratio] 0 % 0-5 [facility] MCHC Auto (RBC) [Mass/Vol]Or dered By: Agustin Aguilar on 10-15-2022 MCHC (RBC) [Mass/Vol] 33.2 g/dL 32-36 [facility] No Panel InformationOrdered By: Agustin Aguilar on 10-15-2022 Estimated Creatinine Clearance Calc 58.18 ml/min [facility] Estimated GFR (MDRD) Amer 82 mL/min >60 [facility] Comment on above: GFR Calc Estimated GFR (MDRD) Non-Af Amer 68 mL/min >60 [facility] Comment on above: Non- GFR Calc Platelets bldOrdered By: Abram Aguilar on 10-15-2022 Platelets (Bld) [#/Vol] 271 10*3/uL 150-450 [facility] Serum or plasma albumin thi urement (mass/volume)Ordered By: Agustin Aguilar on 10-15-2022 Albumin [Mass/Vol] 3.5 g/dL 3.2-5.0 [facility] Serum or plasma albumin/glob ulin mass ratioOrdered By: Agustin Aguilar on 10-15-2022 Albumin/Globulin [Mass ratio] 0.7 {ratio} 0.9-2.4 [facility] Serum or plasma calcium thi urement (mass/volume)Ordered By: Agustin Aguilar on 10-15-2022 Calcium [Mass/Vol] 9.5 mg/dL 8.5-10.1 [facility] Serum or plasma creatinine m easurement (mass/volume)Ordered By: Agustin Aguilar on 10-15-2022 Creatinine [Mass/Vol] 0.97 mg/dL 0.55-1.02 [facility] Comment on above: The validity of the calculated GFR & GFRAA in patients over 70 years has not been determined. Clinical correlation is essential. Serum or plasma urea nitroge n measurement (mass/volume)Ordered By: Agustin Aguilar on 10-15-2022 Urea nitrogen [Mass/Vol] 14 mg/dL 7-18 [facility] Thin prep Papanicolaou smear with manual screeningOrdered By: Agustin Aguilar on 10-15-2022 Thin prep Papanicolaou smear with manual screening 18 U/L 15-37 [facility] Thin prep Papanicolaou smear with manual screening 5 5-15 [facility] Acid fast bacilli (AFB) cult ureOrdered By: Dr. Wing on 09-23-2022 Mycobacterium sp identified Org specific cx Nom (Unsp spec) [facility] Acid fast bacilli (AFB) cult ureOrdered By: Dr. Wing on 09-03-2022 Mycobacterium sp identified Org specific cx Nom (Unsp spec) [facility] Fungus cultureOrdered By: Dr Shiva Wing on 09-03-2022 Fungus identified Cx Nom (Unsp spec) [facility] Fungus stainOrdered By: Dr. Wing on 09-03-2022 Fungus identified Fungus stain Nom (Unsp spec) [facility] Thin prep Papanicolaou smear with manual screeningOrdered By: Dr. Wing on 09-03-2022 Thin prep Papanicolaou smear with manual screening [facility] Thin prep Papanicolaou smear with manual screeningOrdered By: Dr. Wing on 08-24-2022 Thin prep Papanicolaou smear with manual screening [facility] Laboratory - Microbiology an d Antimicrobial susceptibilityOrdered By: Dr. Stone on 08-21-2022 Bacteria identified Cx Nom (Bld) No growth in 5 days. [facility] Anaerobic cultureOrdered By: Dr. Stone on 08-19-2022 Bacteria identified Anaer cx Nom (Unsp spec) No anaerobic bacteria isolated. [facility] Bacteria identified Cx Nom ( Wound)Ordered By: Dr. Stone on 08-19-2022 Wound Culture Streptococcus group C [facility] Wound Culture Meth. resistant Stap h. aureus [facility] Wound Culture Staphylococcus simulans [facility] Culture, urineOrdered By: Dr Shiva Stone on 08-19-2022 Bacteria identified Cx Nom (U) Escherichia coli [facility] Bacteria identified Cx Nom (U) Pseudomonas aeruginosa [facility] Gram stain for investigation of transfusion reactionOrdered By: Dr. Stone on 08-17-2022 Microscopic observation Gram stain Nom (Unsp spec) [facility] Absolute lymphocyte countOrd ered By: Dr. Stone on 08-16-2022 Lymphocytes Auto (Unsp spec) [#/Vol] 2.20 10*3/uL 0.83-4.51 [facility] Anaerobic cultureOrdered By: Keaton Stone on 08-16-2022 Bacteria identified Anaer cx Nom (Unsp spec) No anaerobic bacteria isolated. [facility] Bacteria identified Cx Nom ( Wound)Ordered By: Keaton Stone on 08-16-2022 Wound Culture Streptococcus group C [facility] Wound Culture Meth. resistant Stap h. aureus [facility] Wound Culture Staphylococcus simulans [facility] Basophil percentageOrdered B y: Dr. Stone on 08-16-2022 Basophils/100 WBC (Bld) 0.4 % 0-1 [facility] Bilirubin [Mass/Vol] 0.40 mg/dL 0.20-1.00 [facility] Comment on above: For patients on eltr ombopag therapy, use of Dimension [place] TBIL is not recommended. Chloride [Moles/Vol] 103 mmol/L 98-107 [facility] Eosinophils/100 WBC (Bld) 0.4 % 0-5 [facility] Glucose [Mass/Vol] 262 mg/dL 74-106 [facility] Comment on above: Glucose result great er than or equal to 200 mg/dLsuggests DIABETES MELLITUS per A.D.A. criteria. Lactate [Moles/Vol] 1.0 mmol/L 0.4-2.0 [facility] Neutrophils (Bld) [#/Vol] 12.0 10*3/uL 2.0-7.7 [facility] Neutrophils/100 WBC (Bld) 77.0 % 47-70 [facility] Potassium [Moles/Vol] 4.4 mmol/L 3.5-5.1 [facility] Protein [Mass/Vol] 7.6 g/dL 6.4-8.2 [facility] Sodium [Moles/Vol] 134 mmol/L 136-145 [facility] WBC (Bld) [#/Vol] 15.6 10*3/uL 4.4-11.0 [facility] Basophil percentage 25-50 SEEN /hpf 0-5 [facility] Bilirubin Test strip Ql (U)O rdered By: Dr. Stone on 08-16-2022 Bilirubin Ql (U) Negative Negative [facility] Blood erythrocytes count (nu mber/volume)Ordered By: Dr. Stone on 08-16-2022 RBC (Bld) [#/Vol] 4.02 10*6/uL 4.2-5.4 [facility] Blood hemoglobin measurement (mass/volume)Ordered By: Dr. Stone on 08-16-2022 Hemoglobin (Bld) [Mass/Vol] 11.2 g/dL 12.0-15.0 [facility] Blood lymphocytes/100 leukoc ytesOrdered By: Dr. Stone on 08-16-2022 Lymphocytes/100 WBC (Bld) 14.1 % 19-41 [facility] Blood monocytes/100 leukocyt esOrdered By: Dr. Stone on 08-16-2022 Monocytes/100 WBC (Bld) 6.5 % 0-10 [facility] Blood platelet mean volumeOr dered By: Dr. Stone on 08-16-2022 Platelet mean volume (Bld) [Entitic vol] 10.5 fL 6.2-12.0 [facility] Culture, urineOrdered By: Akhil Stone on 08-16-2022 Bacteria identified Cx Nom (U) Escherichia coli [facility] Bacteria identified Cx Nom (U) Pseudomonas aeruginosa [facility] Determination of erythrocyte mean corpuscular volume (MCV)Ordered By: Dr. Stone on 08-16-2022 MCV (RBC) [Entitic vol] 86.1 fL 81-99 [facility] Gram stain for investigation of transfusion reactionOrdered By: Keaton Stone on 08-16-2022 Microscopic observation Gram stain Nom (Unsp spec) [facility] Hematocrit Auto (Bld) [Volum e fraction]Ordered By: Dr. Stone on 08-16-2022 Hematocrit (Bld) [Volume fraction] 34.6 % 37-47 [facility] INR in Blood by Coagulation assayOrdered By: Dr. Stone on 08-16-2022 INR Coag (Bld) [Relative time] 1.0 {INR} [facility] Ketones Test strip Ql (U)Ord ered By: Dr. Stone on 08-16-2022 Ketones Ql (U) Negative Negative [facility] Laboratory - Chemistry and C hemistry - challengeOrdered By: Dr. Stone on 08-16-2022 ALP [Catalytic activity/Vol] 91 U/L 45-117 [facility] ALT [Catalytic activity/Vol] 23 U/L 13-56 [facility] CO2 [Moles/Vol] 23.0 mmol/L 21.0-32.0 [facility] Globulin (S) [Mass/Vol] 4.4 g/dL 2.2-4.2 [facility] Urea nitrogen/Creatinine [Mass ratio] 13.9 mg/mg 10-20 [facility] Laboratory - CoagulationOrde red By: Dr. Stone on 08-16-2022 aPTT Coag (Bld) [Time] 28.1 s 24.1-36.2 [facility] PT Coag (PPP) [Time] 12.4 s 11.7-14.9 [facility] Laboratory - Hematology and Cell countsOrdered By: Dr. Stone on 08-16-2022 Erythrocyte distribution width (RBC) [Entitic vol] 46.2 fL 35.1-43.9 [facility] Erythrocyte distribution width (RBC) [Ratio] 14.7 % 11.6-14.6 [facility] Immature granulocytes/100 WBC (Bld) 1.600 % 0.0-0.9 [facility] Comment on above: IG% - Immature Granu locytes (promyelocytes, myelocytes and metamyelocytes) > 1% indicates that a LEFT SHIFT is Present. MCH (RBC) [Entitic mass] 27.9 pg 27.0-32.0 [facility] Nucleated RBC/100 WBC (Bld) [Ratio] 0 % 0-5 [facility] Laboratory - Microbiology an d Antimicrobial susceptibilityOrdered By: Keaton Stone on 08-16-2022 Bacteria identified Cx Nom (Bld) No growth in 5 days. [facility] MCHC Auto (RBC) [Mass/Vol]Or dered By: Dr. Stone on 08-16-2022 MCHC (RBC) [Mass/Vol] 32.4 g/dL 32-36 [facility] Mucus LM Ql (Urine sed)Order ed By: Dr. Stone on 08-16-2022 Mucus Ql (Urine sed) 0 SEEN /hpf [facility] Nitrite Test strip Ql (U)Ord ered By: Dr. Stone on 08-16-2022 Nitrite Ql (U) Positive Negative [facility] No Panel InformationOrdered By: Dr. Stone on 08-16-2022 Estimated Creatinine Clearance Calc 64.86 ml/min [facility] Estimated GFR (MDRD) Amer 93 mL/min >60 [facility] Comment on above: GFR Calc Estimated GFR (MDRD) Non-Af Amer 77 mL/min >60 [facility] Comment on above: Non- GFR Calc Platelets bldOrdered By: Dr. Stone on 08-16-2022 Platelets (Bld) [#/Vol] 235 10*3/uL 150-450 [facility] Protein Test strip Ql (U)Ord ered By: Dr. Stone on 08-16-2022 Protein Ql (U) 100 mg/dl Negative [facility] Serum or plasma albumin thi urement (mass/volume)Ordered By: Dr. Stone on 08-16-2022 Albumin [Mass/Vol] 3.2 g/dL 3.2-5.0 [facility] Serum or plasma albumin/glob ulin mass ratioOrdered By: Dr. Stone on 08-16-2022 Albumin/Globulin [Mass ratio] 0.7 {ratio} 0.9-2.4 [facility] Serum or plasma calcium thi urement (mass/volume)Ordered By: Dr. Stone on 08-16-2022 Calcium [Mass/Vol] 8.9 mg/dL 8.5-10.1 [facility] Serum or plasma creatinine m easurement (mass/volume)Ordered By: Dr. Stone on 08-16-2022 Creatinine [Mass/Vol] 0.87 mg/dL 0.55-1.02 [facility] Comment on above: The validity of the calculated GFR & GFRAA in patients over 70 years has not been determined. Clinical correlation is essential. Serum or plasma urea nitroge n measurement (mass/volume)Ordered By: Dr. Stone on 08-16-2022 Urea nitrogen [Mass/Vol] 12 mg/dL 7-18 [facility] Squamous epithelial cells de tection in urine sediment by light microscopyOrdered By: Dr. Stone on 08-16-2022 Epithelial cells.squamous LM Ql (Urine sed) 0-5 SEEN /hpf 5-10 [facility] Thin prep Papanicolaou smear with manual screeningOrdered By: Dr. Stone on 08-16-2022 Thin prep Papanicolaou smear with manual screening 17 U/L 15-37 [facility] Thin prep Papanicolaou smear with manual screening 8 5-15 [facility] Urine blood detectionOrdered By: Dr. Stone on 08-16-2022 RBC Ql (U) 50 /ul Negative [facility] RBC Ql (U) 0-5 SEEN /hpf 0-5 [facility] Urine clarityOrdered By: Dr. Stone on 08-16-2022 Clarity (U) Cloudy Clear [facility] Urine color determinationOrd ered By: Dr. Stone on 08-16-2022 Color (U) Yellow Yellow [facility] Urine glucose detectionOrder ed By: Dr. Stone on 08-16-2022 Glucose Ql (U) 1000 mg/dl Normal [facility] Urine leukocyte esterase det ection by dipstickOrdered By: Dr. Stone on 08-16-2022 Leukocyte esterase Test strip Ql (U) 500 /ul Negative [facility] Urine pHOrdered By: Dr. Abram sweet on 08-16-2022 pH (U) 6.0 [pH] 5.0 - 8.0 [facility] Urine sediment bacteria coun t by microscopy (number/high power field)Ordered By: Dr. Stone on 08-16-2022 Bacteria LM.HPF (Urine sed) [#/Area] 4 /[HPF] None Seen [facility] Urine specific gravity measu rementOrdered By: Dr. Stone on 08-16-2022 Specific gravity (U) [Rel density] 1.015 1.002-1.03 0 [facility] Urobilinogen Auto test strip Ql (U)Ordered By: Dr. Stone on 08-16-2022 Urobilinogen Ql (U) Normal mg/dl Normal [facility] Anaerobic cultureOrdered By: Dr. Wing on 07-20-2022 Bacteria identified Anaer cx Nom (Unsp spec) No anaerobic bacteria isolated. [facility] Bacteria identified Cx Nom ( Wound)Ordered By: Dr. Wing on 07-20-2022 Wound Culture Enterococcus faecalis [facility] Wound Culture Enterobacter cloacae complex [facility] Wound Culture Staphylococcus simulans [facility] Anaerobic cultureOrdered By: Dr. Wing on 07-19-2022 Bacteria identified Anaer cx Nom (Unsp spec) No anaerobic bacteria isolated. [facility] Bacteria identified Cx Nom ( Wound)Ordered By: Dr. Wing on 07-18-2022 Wound Culture Staphylococcus simulans [facility] Laboratory - Microbiology an d Antimicrobial susceptibilityOrdered By: Alexander Hooks on 07-18-2022 Bacteria identified Cx Nom (Bld) No growth in 5 days. [facility] Basophil percentageOrdered B y: Dr. Ngo on 07-16-2022 Bilirubin [Mass/Vol] 0.30 mg/dL 0.20-1.00 [facility] Comment on above: For patients on eltr ombopag therapy, use of Dimension [place] TBIL is not recommended. Chloride [Moles/Vol] 108 mmol/L 98-107 [facility] Glucose [Mass/Vol] 100 mg/dL 74-106 [facility] Comment on above: Fasting Glucose resu lt from 100 to 125 mg/dL suggests IMPAIRED HOMEOSTASIS per A.D.A. criteria. Potassium [Moles/Vol] 3.6 mmol/L 3.5-5.1 [facility] Protein [Mass/Vol] 7.1 g/dL 6.4-8.2 [facility] Sodium [Moles/Vol] 139 mmol/L 136-145 [facility] Gram stain for investigation of transfusion reactionOrdered By: Dr. Wing on 07-16-2022 Microscopic observation Gram stain Nom (Unsp spec) [facility] Microscopic observation Gram stain Nom (Unsp spec) [facility] Laboratory - Chemistry and C hemistry - challengeOrdered By: Dr. Ngo on 07-16-2022 ALP [Catalytic activity/Vol] 70 U/L 45-117 [facility] ALT [Catalytic activity/Vol] 35 U/L 13-56 [facility] CK [Catalytic activity/Vol] 25 U/L 26-192 [facility] CO2 [Moles/Vol] 26.0 mmol/L 21.0-32.0 [facility] Globulin (S) [Mass/Vol] 4.3 g/dL 2.2-4.2 [facility] Urea nitrogen/Creatinine [Mass ratio] 12.7 mg/mg 10-20 [facility] No Panel InformationOrdered By: Dr. Ngo on 07-16-2022 Estimated Creatinine Clearance Calc 71.43 ml/min [facility] Estimated GFR (MDRD) Amer 104 mL/min >60 [facility] Comment on above: GFR Calc Estimated GFR (MDRD) Non-Af Amer 86 mL/min >60 [facility] Comment on above: Non- GFR Calc Serum or plasma albumin thi urement (mass/volume)Ordered By: Dr. Ngo on 07-16-2022 Albumin [Mass/Vol] 2.8 g/dL 3.2-5.0 [facility] Serum or plasma albumin/glob ulin mass ratioOrdered By: Dr. Ngo on 07-16-2022 Albumin/Globulin [Mass ratio] 0.7 {ratio} 0.9-2.4 [facility] Serum or plasma calcium thi urement (mass/volume)Ordered By: Dr. Ngo on 07-16-2022 Calcium [Mass/Vol] 8.9 mg/dL 8.5-10.1 [facility] Serum or plasma creatinine m easurement (mass/volume)Ordered By: Dr. Ngo on 07-16-2022 Creatinine [Mass/Vol] 0.79 mg/dL 0.55-1.02 [facility] Comment on above: The validity of the calculated GFR & GFRAA in patients over 70 years has not been determined. Clinical correlation is essential. Serum or plasma urea nitroge n measurement (mass/volume)Ordered By: Dr. Ngo on 07-16-2022 Urea nitrogen [Mass/Vol] 10 mg/dL 7-18 [facility] Thin prep Papanicolaou smear with manual screeningOrdered By: Dr. Ngo on 07-16-2022 Thin prep Papanicolaou smear with manual screening 28 U/L 15-37 [facility] Thin prep Papanicolaou smear with manual screening 5 5-15 [facility] Glucose Glucometer (BldC) [M ass/Vol]Ordered By: Dr. Boyer on 07-15-2022 Glucose [Mass/Vol] 156 mg/dL 74-106 [facility] Comment on above: MANAGEMENT OF PATIEN T CARE PER NURSING PROTOCOL Laboratory - Chemistry and C hemistry - challengeOrdered By: Dr. Navarrete on 07-15-2022 HCG ( test) Ql (U) Negative [facility] Comment on above: Very dilute urine sp ecimens, as indicated by a low specificgravity, may not contain event marketing representative levels of hCG. If is still suspected, a first morning urinespecimen should be collected 48 hours later and tested. Absolute lymphocyte countOrd ered By: Dr. Panda on 07-13-2022 Lymphocytes Auto (Unsp spec) [#/Vol] 1.49 10*3/uL 0.83-4.51 [facility] Absolute lymphocyte countOrd ered By: Alexander Hooks on 07-13-2022 Lymphocytes Auto (Unsp spec) [#/Vol] 1.00 10*3/uL 0.83-4.51 [facility] Basophil percentageOrdered B y: Dr. Panda on 07-13-2022 Basophils/100 WBC (Bld) 0.4 % 0-1 [facility] Eosinophils/100 WBC (Bld) 0.2 % 0-5 [facility] Neutrophils (Bld) [#/Vol] 9.2 10*3/uL 2.0-7.7 [facility] Neutrophils/100 WBC (Bld) 77.8 % 47-70 [facility] WBC (Bld) [#/Vol] 11.8 10*3/uL 4.4-11.0 [facility] Basophil percentageOrdered B y: Alexander Hooks on 07-13-2022 Basophils/100 WBC (Bld) 0.3 % 0-1 [facility] Chloride [Moles/Vol] 101 mmol/L 98-107 [facility] Eosinophils/100 WBC (Bld) 0.1 % 0-5 [facility] Glucose [Mass/Vol] 235 mg/dL 74-106 [facility] Comment on above: Glucose result great er than or equal to 200 mg/dLsuggests DIABETES MELLITUS per A.D.A. criteria. Lactate [Moles/Vol] 1.6 mmol/L 0.4-2.0 [facility] Neutrophils (Bld) [#/Vol] 13.0 10*3/uL 2.0-7.7 [facility] Neutrophils/100 WBC (Bld) 85.3 % 47-70 [facility] Potassium [Moles/Vol] 4.3 mmol/L 3.5-5.1 [facility] Sodium [Moles/Vol] 132 mmol/L 136-145 [facility] WBC (Bld) [#/Vol] 15.2 10*3/uL 4.4-11.0 [facility] Blood erythrocytes count (nu mber/volume)Ordered By: Dr. Panda on 07-13-2022 RBC (Bld) [#/Vol] 3.93 10*6/uL 4.2-5.4 [facility] Blood erythrocytes count (nu mber/volume)Ordered By: Alexander Hooks on 07-13-2022 RBC (Bld) [#/Vol] 4.55 10*6/uL 4.2-5.4 [facility] Blood hemoglobin measurement (mass/volume)Ordered By: Dr. Panda on 07-13-2022 Hemoglobin (Bld) [Mass/Vol] 11.0 g/dL 12.0-15.0 [facility] Blood hemoglobin measurement (mass/volume)Ordered By: Alexander Hooks on 07-13-2022 Hemoglobin (Bld) [Mass/Vol] 12.7 g/dL 12.0-15.0 [facility] Blood lymphocytes/100 leukoc ytesOrdered By: Dr. Panda on 07-13-2022 Lymphocytes/100 WBC (Bld) 12.7 % - [facility] Blood lymphocytes/100 leukoc ytesOrdered By: Alexander Hooks on 07-13-2022 Lymphocytes/100 WBC (Bld) 6.6 % - [facility] Blood monocytes/100 leukocyt esOrdered By: Dr. Panda on 07-13-2022 Monocytes/100 WBC (Bld) 7.7 % 0-10 [facility] Blood monocytes/100 leukocyt esOrdered By: Alexander Hooks on 07-13-2022 Monocytes/100 WBC (Bld) 6.9 % 0-10 [facility] Blood platelet mean volumeOr dered By: Dr. Panda on 07-13-2022 Platelet mean volume (Bld) [Entitic vol] 10.2 fL 6.2-12.0 [facility] Blood platelet mean volumeOr dered By: Alexander Hooks on 07-13-2022 Platelet mean volume (Bld) [Entitic vol] 10.3 fL 6.2-12.0 [facility] Determination of erythrocyte mean corpuscular volume (MCV)Ordered By: Dr. Panda on 07-13-2022 MCV (RBC) [Entitic vol] 86.5 fL 81-99 [facility] Determination of erythrocyte mean corpuscular volume (MCV)Ordered By: Alexander Hooks on 07-13-2022 MCV (RBC) [Entitic vol] 85.3 fL 81-99 [facility] Erythrocyte sedimentation ra teOrdered By: Dr. Panda on 07-13-2022 ESR (Bld) [Velocity] 69 mm/h 0-30 [facility] Erythrocyte sedimentation ra teOrdered By: Alexander Hooks on 07-13-2022 ESR (Bld) [Velocity] 57 mm/h 0-30 [facility] Hematocrit Auto (Bld) [Volum e fraction]Ordered By: Dr. Panda on 07-13-2022 Hematocrit (Bld) [Volume fraction] 34.0 % 37-47 [facility] Hematocrit Auto (Bld) [Volum e fraction]Ordered By: Alexander Hooks on 07-13-2022 Hematocrit (Bld) [Volume fraction] 38.8 % [facility] Laboratory - Chemistry and C hemistry - challengeOrdered By: Alexander Hooks on 07-13-2022 CO2 [Moles/Vol] 23.0 mmol/L 21.0-32.0 [facility] Urea nitrogen/Creatinine [Mass ratio] 11.1 mg/mg 10-20 [facility] - Hematology and Cell countsOrdered By: Dr. Panda on 07-13-2022 Erythrocyte distribution width (RBC) [Entitic vol] 43.7 fL 35.1-43.9 [facility] Erythrocyte distribution width (RBC) [Ratio] 13.7 % 11.6-14.6 [facility] Immature granulocytes/100 WBC (Bld) 1.200 % 0.0-0.9 [facility] Comment on above: IG% - Immature Granu locytes (promyelocytes, myelocytes and metamyelocytes) > 1% indicates that a LEFT SHIFT is Present. MCH (RBC) [Entitic mass] 28.0 pg 27.0-32.0 [facility] Nucleated RBC/100 WBC (Bld) [Ratio] 0 % 0-5 [facility] - Hematology and Cell countsOrdered By: Alexander Hooks on 07-13-2022 Erythrocyte distribution width (RBC) [Entitic vol] 42.2 fL 35.1-43.9 [facility] Erythrocyte distribution width (RBC) [Ratio] 13.7 % 11.6-14.6 [facility] Immature granulocytes/100 WBC (Bld) 0.800 % 0.0-0.9 [facility] Comment on above: IG% - Immature Granu locytes (promyelocytes, myelocytes and metamyelocytes) > 1% indicates that a LEFT SHIFT is Present. MCH (RBC) [Entitic mass] 27.9 pg 27.0-32.0 [facility] Nucleated RBC/100 WBC (Bld) [Ratio] 0 % 0-5 [facility] MCHC Auto (RBC) [Mass/Vol]Or dered By: Dr. Panda on 07-13-2022 MCHC (RBC) [Mass/Vol] 32.4 g/dL -36 [facility] MCHC Auto (RBC) [Mass/Vol]Or dered By: Alexander Hooks on 07-13-2022 MCHC (RBC) [Mass/Vol] 32.7 g/dL -36 [facility] No Panel InformationOrdered By: Dr. Boyer on 07-13-2022 Methicillin-Resist S.aureus DNA PCR Positive Negative [facility] Comment on above: RESULTS CALLED TO DWAIN GRAMAJO RN MS3 07/14/22 1137 Molly Jose.REPORT READ BACK BY SAME. No Panel InformationOrdered By: Dr. Navarrete on 07-13-2022 Thyroid Stimulating Hormone (TSH) 0.33 uIU/mL 0.358-3.74 [facility] No Panel InformationOrdered By: Alexander Hooks on 07-13-2022 Estimated Creatinine Clearance Calc 52.25 ml/min [facility] Estimated GFR (MDRD) Amer 72 mL/min >60 [facility] Comment on above: GFR Calc Estimated GFR (MDRD) Non-Af Amer 60 mL/min >60 [facility] Comment on above: Non- GFR Calc Platelets bldOrdered By: Dr. Panda on 07-13-2022 Platelets (Bld) [#/Vol] 212 10*3/uL 150-450 [facility] Platelets bldOrdered By: Umesh Hooks on 07-13-2022 Platelets (Bld) [#/Vol] 255 10*3/uL 150-450 [facility] Serum or plasma C reactive p rotein measurement (mass/volume)Ordered By: Dr. Panda on 07-13-2022 CRP [Mass/Vol] 60.40 mg/L 0.0-3.0 [facility] Comment on above: C-Reactive Protein ( CRP) provides useful information for thediagnosis, therapy and monitoring of inflammatory processesand associated diseases. For the evaluation of Relative Riskfor Cardiovascular Disease, a High Sensitivity CRP (HSCRP)should be ordered. Serum or plasma C reactive p rotein measurement (mass/volume)Ordered By: Alexander Hooks on 07-13-2022 CRP [Mass/Vol] 53.70 mg/L 0.0-3.0 [facility] Comment on above: C-Reactive Protein ( CRP) provides useful information for thediagnosis, therapy and monitoring of inflammatory processesand associated diseases. For the evaluation of Relative Riskfor Cardiovascular Disease, a High Sensitivity CRP (HSCRP)should be ordered. Serum or plasma calcium thi urement (mass/volume)Ordered By: Alexander Hooks on 07-13-2022 Calcium [Mass/Vol] 9.3 mg/dL 8.5-10.1 [facility] Serum or plasma creatinine m easurement (mass/volume)Ordered By: Alexander Hooks on 07-13-2022 Creatinine [Mass/Vol] 1.08 mg/dL 0.55-1.02 [facility] Comment on above: The validity of the calculated GFR & GFRAA in patients over 70 years has not been determined. Clinical correlation is essential. Serum or plasma urea nitroge n measurement (mass/volume)Ordered By: Alexander Hooks on 07-13-2022 Urea nitrogen [Mass/Vol] 12 mg/dL 7-18 [facility] Staphylococcus aureus DNA de tection by probe and target amplification methodOrdered By: Dr. Boyer on 07-13-2022 S. aureus DNA MALIK+probe Ql (Unsp spec) Positive Negative [facility] Thin prep Papanicolaou smear with manual screeningOrdered By: Alexander Hooks on 07-13-2022 Thin prep Papanicolaou smear with manual screening 8 - [facility] Whole blood hemoglobin A1c/t otal hemoglobin ratio (mass fraction)Ordered By: Dr. Panda on 07-13-2022 HbA1c (Bld) [Mass fraction] 10.5 % 3.8-5.6 [facility] Comment on above: Normal < 5.7 % Predi abetic 5.7 - 6.4 % Diabetic >or= 6.5 % Please note range changes. LABORATORYOrdered By: Tania Dale on 06-05-2022 Blood Glucose Testing Reason Routine (06/05/22 8:17 AM) [facility] Glucose [Mass/Vol] 176 mg/dL Invalid Interpretation Code 70 - 110 mg/dL [facility] LABORATORYOrdered By: Anahy Dowling on 06-05-2022 Basophil, Absolute 0.1 103/mcL Invalid Interpretation Code 0.0 - 0.2 10^3/mcL AO Workflow SS Basophils/100 WBC (Bld) 0.7 % Invalid Interpretation Code 0.0 - 2.5 % AO Workflow SS Eosinophil, Absolute 0.3 103/mcL Invalid Interpretation Code 0.0 - 0.4 10^3/mcL AO Workflow SS Eosinophils/100 WBC (Bld) 2.8 % Invalid Interpretation Code 0.0 - 7.0 % AO Workflow SS Erythrocyte distribution width (RBC) [Ratio] 15.1 % Invalid Interpretation Code 11.5 - 14.5 % AO Workflow SS Hematocrit (Bld) [Volume fraction] 32.6 % Invalid Interpretation Code 37.0 - 47.0 % AO Workflow SS Hemoglobin (Bld) [Mass/Vol] 10.8 G/dL Invalid Interpretation Code 12.0 - 16.0 G/dL AO Workflow SS Lymphocyte, Absolute 3.2 103/mcL Invalid Interpretation Code 0.8 - 3.9 10^3/mcL AO Workflow SS Lymphocytes/100 WBC (Bld) 31.1 % Invalid Interpretation Code 10.0 - 50.0 % AO Workflow SS MCH (RBC) [Entitic mass] 28.1 pg Invalid Interpretation Code 27.0 - 31.2 pg AO Workflow SS MCHC 33.1 G/dL Invalid Interpretation Code 33.0 - 37.0 G/dL AO Workflow SS MCV (RBC) [Entitic vol] 84.8 fL Invalid Interpretation Code 80.0 - 94.0 fL AO Workflow SS Monocyte, Absolute 1.2 103/mcL Invalid Interpretation Code 0.2 - 1.0 10^3/mcL AO Workflow SS Monocytes/100 WBC (Bld) 11.9 % Invalid Interpretation Code 1.7 - 13.0 % AO Workflow SS Neutrophil, Absolute 5.5 103/mcL Invalid Interpretation Code 2.9 - 6.2 10^3/mcL AO Workflow SS Neutrophils/100 WBC (Bld) 53.5 % Invalid Interpretation Code 37.0 - 80.0 % AO Workflow SS Platelet mean volume (Bld) [Entitic vol] 8.1 fL Invalid Interpretation Code 7.4 - 10.4 fL AO Workflow SS Platelets (Bld) [#/Vol] 252 103/mcL Invalid Interpretation Code 130 - 400 10^3/mcL AO Workflow SS RBC (Bld) [#/Vol] 3.85 106/mcL Invalid Interpretation Code 4.20 - 5.40 10^6/mcL AO Workflow SS WBC (Bld) [#/Vol] 10.3 103/mcL Invalid Interpretation Code 4.6 - 10.8 10^3/mcL AO Workflow SS LABORATORYOrdered By: [employer] on 06-05-2022 Calcium [Mass/Vol] 9.0 mg/dL Invalid Interpretation Code 8.4 - 10.2 mg/dL AO ADM SS Chloride [Moles/Vol] 102 mmol/L Invalid Interpretation Code 98 - 107 mmol/L AO ADM SS CO2 [Moles/Vol] 27 mmol/L Invalid Interpretation Code 22 - 29 mmol/L AO ADM SS Creatinine [Mass/Vol] 1.07 mg/dL Invalid Interpretation Code 0.55 - 1.02 mg/dL AO ADM SS Electrolyte Balance 9.0 mEq/L Invalid Interpretation Code 4.0 - 15.0 mEq/L AO ADM SS GFR 69 ml/min/1.73sqm Invalid Interpretation Code AO Chemistry S GFR Non- 57 ml/min/1.73sqm Invalid Interpretation Code AO Chemistry S Glucose [Mass/Vol] 208 mg/dL Invalid Interpretation Code 70 - 105 mg/dL AO ADM SS Lactate [Moles/Vol] 1.3 mmol/L Invalid Interpretation Code 0.4 - 2.0 mmol/L AO ADM SS Potassium [Moles/Vol] 3.9 mmol/L Invalid Interpretation Code 3.5 - 5.1 mmol/L AO ADM SS Sodium [Moles/Vol] 138 mmol/L Invalid Interpretation Code 136 - 145 mmol/L AO ADM SS Urea nitrogen [Mass/Vol] 17 mg/dL Invalid Interpretation Code 7 - 18 mg/dL AO ADM SS Urea nitrogen/Creatinine [Mass ratio] 16 ratio Invalid Interpretation Code 7 - 27 ratio AO ADM SS LABORATORYOrdered By: Candi Dill on 06-05-2022 Blood Glucose Testing Reason Routine (06/05/22 1:57 AM) [facility] Glucose [Mass/Vol] 249 mg/dL Invalid Interpretation Code 70 - 110 mg/dL [facility] LABORATORYOrdered By: [employer] on 06-04-2022 Albumin BCP dye [Mass/Vol] 3.7 G/dL Invalid Interpretation Code 3.5 - 5.0 G/dL AO ADM SS Albumin/Globulin [Mass ratio] 0.8 {ratio} Invalid Interpretation Code 1.1 - 2.5 ratio AO ADM SS ALP [Catalytic activity/Vol] 116 U/L Invalid Interpretation Code 40 - 135 U/L AO ADM SS ALT With P-5'-P [Catalytic activity/Vol] 38 U/L Invalid Interpretation Code 14 - 59 U/L AO ADM SS AST With P-5'-P [Catalytic activity/Vol] 21 U/L Invalid Interpretation Code 10 - 40 U/L AO ADM SS Bilirubin [Mass/Vol] 0.2 mg/dL Invalid Interpretation Code 0.2 - 1.0 mg/dL AO ADM SS Calcium [Mass/Vol] 9.8 mg/dL Invalid Interpretation Code 8.4 - 10.2 mg/dL AO ADM SS Chloride [Moles/Vol] 99 mmol/L Invalid Interpretation Code 98 - 107 mmol/L AO ADM SS CO2 [Moles/Vol] 26 mmol/L Invalid Interpretation Code 22 - 29 mmol/L AO ADM SS Creatinine [Mass/Vol] 1.04 mg/dL Invalid Interpretation Code 0.55 - 1.02 mg/dL AO ADM SS Electrolyte Balance 12.0 mEq/L Invalid Interpretation Code 4.0 - 15.0 mEq/L AO ADM SS GFR 71 ml/min/1.73sqm Invalid Interpretation Code AO Chemistry S GFR Non- 59 ml/min/1.73sqm Invalid Interpretation Code AO Chemistry S Globulin 4.8 G/dL Invalid Interpretation Code AO ADM SS Glucose [Mass/Vol] 321 mg/dL Invalid Interpretation Code 70 - 105 mg/dL AO ADM SS Lactate [Moles/Vol] 1.6 mmol/L Invalid Interpretation Code 0.4 - 2.0 mmol/L AO ADM SS Potassium [Moles/Vol] 4.1 mmol/L Invalid Interpretation Code 3.5 - 5.1 mmol/L AO ADM SS Protein [Mass/Vol] 8.5 G/dL Invalid Interpretation Code 6.4 - 8.2 G/dL AO ADM SS Sodium [Moles/Vol] 137 mmol/L Invalid Interpretation Code 136 - 145 mmol/L AO ADM SS Urea nitrogen [Mass/Vol] 13 mg/dL Invalid Interpretation Code 7 - 18 mg/dL AO ADM SS Urea nitrogen/Creatinine [Mass ratio] 12 ratio Invalid Interpretation Code 7 - 27 ratio AO ADM SS LABORATORYOrdered By: Anahy Dowling on 06-04-2022 Basophil, Absolute 0.1 103/mcL Invalid Interpretation Code 0.0 - 0.2 10^3/mcL AO Workflow SS Basophils/100 WBC (Bld) 1.2 % Invalid Interpretation Code 0.0 - 2.5 % AO Workflow SS Eosinophil, Absolute 0.2 103/mcL Invalid Interpretation Code 0.0 - 0.4 10^3/mcL AO Workflow SS Eosinophils/100 WBC (Bld) 1.9 % Invalid Interpretation Code 0.0 - 7.0 % AO Workflow SS Erythrocyte distribution width (RBC) [Ratio] 15.4 % Invalid Interpretation Code 11.5 - 14.5 % AO Workflow SS Hematocrit (Bld) [Volume fraction] 37.3 % Invalid Interpretation Code 37.0 - 47.0 % AO Workflow SS Hemoglobin (Bld) [Mass/Vol] 12.3 G/dL Invalid Interpretation Code 12.0 - 16.0 G/dL AO Workflow SS Lymphocyte, Absolute 2.4 103/mcL Invalid Interpretation Code 0.8 - 3.9 10^3/mcL AO Workflow SS Lymphocytes/100 WBC (Bld) 22.9 % Invalid Interpretation Code 10.0 - 50.0 % AO Workflow SS MCH (RBC) [Entitic mass] 27.9 pg Invalid Interpretation Code 27.0 - 31.2 pg AO Workflow SS MCHC 32.8 G/dL Invalid Interpretation Code 33.0 - 37.0 G/dL AO Workflow SS MCV (RBC) [Entitic vol] 84.9 fL Invalid Interpretation Code 80.0 - 94.0 fL AO Workflow SS Monocyte distribution width Auto (Bld) [Entitic vol] 21.11 Invalid Interpretation Code 0.00 - 20.00 AO Workflow SS Comment on above: Result Comment: For adults in ED, MDW>20.0 may be associated with a higher risk of sepsis during the first 12hrs of hospital admission Monocyte, Absolute 1.1 103/mcL Invalid Interpretation Code 0.2 - 1.0 10^3/mcL AO Workflow SS Monocytes/100 WBC (Bld) 10.6 % Invalid Interpretation Code 1.7 - 13.0 % AO Workflow SS Neutrophil, Absolute 6.7 103/mcL Invalid Interpretation Code 2.9 - 6.2 10^3/mcL AO Workflow SS Neutrophils/100 WBC (Bld) 63.4 % Invalid Interpretation Code 37.0 - 80.0 % AO Workflow SS Platelet mean volume (Bld) [Entitic vol] 8.5 fL Invalid Interpretation Code 7.4 - 10.4 fL AO Workflow SS Platelets (Bld) [#/Vol] 297 103/mcL Invalid Interpretation Code 130 - 400 10^3/mcL AO Workflow SS RBC (Bld) [#/Vol] 4.40 106/mcL Invalid Interpretation Code 4.20 - 5.40 10^6/mcL AO Workflow SS WBC (Bld) [#/Vol] 10.6 103/mcL Invalid Interpretation Code 4.6 - 10.8 10^3/mcL AO Workflow SS Appearance (U) Slightly Cloudy *ABN* (06/04/22 10:41 PM) Invalid Interpretation Code Clear AO Auto Urine SS Bacteria LM.HPF (Urine sed) [#/Area] 3 /[HPF] Invalid Interpretation Code AO Auto Urine SS Bilirubin Ql (U) Negative (06/04/22 10:41 PM) Invalid Interpretation Code Negative AO Auto Urine SS Color (U) Yellow (06/04/22 10:41 PM) Invalid Interpretation Code AO Auto Urine SS Glucose Test strip (U) [Mass/Vol] >=1000 mg/dL Invalid Interpretation Code Negativemg /dL AO Auto Urine SS Hemoglobin Auto test strip (U) [Mass/Vol] Trace *ABN* (06/04/22 10:41 PM) Invalid Interpretation Code Negative AO Auto Urine SS Ketones Ql (U) Negative Invalid Interpretation Code Negativemg /dL AO Auto Urine SS UA Leuk Est Small *ABN* (06/04/22 10:41 PM) Invalid Interpretation Code Negative AO Auto Urine SS UA Nitrite Positive *ABN* (06/04/22 10:41 PM) Invalid Interpretation Code Negative AO Auto Urine SS UA pH 6.5 (06/04/22 10:41 PM) Invalid Interpretation Code 5.0 - 8.0 AO Auto Urine SS UA Protein 30 mg/dL Invalid Interpretation Code Negativemg /dL AO Auto Urine SS UA RBC 0-5 /HPF Invalid Interpretation Code None Seen/HPF AO Auto Urine SS UA Spec Grav 1.020 (06/04/22 10:41 PM) Invalid Interpretation Code 1.015-1.02 5 AO Auto Urine SS UA Specimen Type Catheter (06/04/22 10:41 PM) Invalid Interpretation Code AO Auto Urine SS UA Squam Epithelial 0-5 /HPF Invalid Interpretation Code None Seen/HPF AO Auto Urine SS UA Urobilinogen 0.2 E.U./dL Invalid Interpretation Code 0.2-1.0E.U ./dL AO Auto Urine SS WBC LM.HPF (Urine sed) [#/Area] LOADED /HPF Invalid Interpretation Code None Seen/HPF AO Auto Urine SS No Panel Informationon 06-04 Microscopic examination of blood, culture Culture has been received in lab and is no growth to date. Routine cultures are held for [address] [facility] Laboratory - Microbiology an d Antimicrobial susceptibilityOrdered By: Dr. Ohara on 05-21-2022 Bacteria identified Cx Nom (Bld) No growth in 5 days. [facility] Culture, urineOrdered By: Dr Shiva Ohara on 05-17-2022 Bacteria identified Cx Nom (U) Mixed Gram Pos & Gram Neg Org [facility] Absolute lymphocyte countOrd ered By: Dr. Ohara on 05-15-2022 Lymphocytes Auto (Unsp spec) [#/Vol] 1.41 10*3/uL 0.83-4.51 [facility] Amorphous sediment detection in urine sediment by light microscopyOrdered By: Dr. Ohara on 05-15-2022 Amorphous sediment LM Ql (Urine sed) 3+ [facility] Basophil percentageOrdered B y: Dr. Ohara on 05-15-2022 Basophil percentage 5-10 SEEN /hpf 0-5 [facility] Basophils/100 WBC (Bld) 0.5 % 0-1 [facility] Chloride [Moles/Vol] 102 mmol/L 98-107 [facility] Eosinophils/100 WBC (Bld) 2.0 % 0-5 [facility] Glucose [Mass/Vol] 315 mg/dL 74-106 [facility] Comment on above: Glucose result great er than or equal to 200 mg/dLsuggests DIABETES MELLITUS per A.D.A. criteria. Lactate [Moles/Vol] 1.4 mmol/L 0.4-2.0 [facility] Neutrophils (Bld) [#/Vol] 7.3 10*3/uL 2.0-7.7 [facility] Neutrophils/100 WBC (Bld) 74.8 % 47-70 [facility] Potassium [Moles/Vol] 3.9 mmol/L 3.5-5.1 [facility] Sodium [Moles/Vol] 136 mmol/L 136-145 [facility] WBC (Bld) [#/Vol] 9.8 10*3/uL 4.4-11.0 [facility] Beta hCG serum qualOrdered B y: Dr. Ohara on 05-15-2022 Beta HCG ( test) Ql Negative [facility] Bilirubin Test strip Ql (U)O rdered By: Dr. Ohara on 05-15-2022 Bilirubin Ql (U) Negative Negative [facility] Blood erythrocytes count (nu mber/volume)Ordered By: Dr. Ohara on 05-15-2022 RBC (Bld) [#/Vol] 4.36 10*6/uL 4.2-5.4 [facility] Blood hemoglobin measurement (mass/volume)Ordered By: Dr. Ohara on 05-15-2022 Hemoglobin (Bld) [Mass/Vol] 12.7 g/dL 12.0-15.0 [facility] Blood lymphocytes/100 leukoc ytesOrdered By: Dr. Ohara on 05-15-2022 Lymphocytes/100 WBC (Bld) 14.4 % 19-41 [facility] Blood monocytes/100 leukocyt esOrdered By: Dr. Ohara on 05-15-2022 Monocytes/100 WBC (Bld) 7.3 % 0-10 [facility] Blood platelet mean volumeOr dered By: Dr. Ohara on 05-15-2022 Platelet mean volume (Bld) [Entitic vol] 10.3 fL 6.2-12.0 [facility] Determination of erythrocyte mean corpuscular volume (MCV)Ordered By: Dr. Ohara on 05-15-2022 MCV (RBC) [Entitic vol] 87.4 fL 81-99 [facility] Hematocrit Auto (Bld) [Volum e fraction]Ordered By: Dr. Ohara on 05-15-2022 Hematocrit (Bld) [Volume fraction] 38.1 % 37-47 [facility] Influenza virus A and B and SARS-CoV-2 (COVID-19) Ag panel - Upper respiratory specimOrdered By: Dr. Ohara on 05-15-2022 SARS-CoV-2 (COVID-19) RNA MALIK+probe Ql (Resp) [facility] Ketones Test strip Ql (U)Ord ered By: Dr. Ohara on 05-15-2022 Ketones Ql (U) Negative Negative [facility] Laboratory - Chemistry and C hemistry - challengeOrdered By: Dr. Ohara on 05-15-2022 CO2 [Moles/Vol] 28.0 mmol/L 21.0-32.0 [facility] Urea nitrogen/Creatinine [Mass ratio] 13.6 mg/mg 10-20 [facility] Laboratory - Hematology and Cell countsOrdered By: Dr. Ohara on 05-15-2022 Erythrocyte distribution width (RBC) [Entitic vol] 45.1 fL 35.1-43.9 [facility] Erythrocyte distribution width (RBC) [Ratio] 14.2 % 11.6-14.6 [facility] Immature granulocytes/100 WBC (Bld) 1.000 % 0.0-0.9 [facility] Comment on above: IG% - Immature Granu locytes (promyelocytes, myelocytes and metamyelocytes) > 1% indicates that a LEFT SHIFT is Present. MCH (RBC) [Entitic mass] 29.1 pg 27.0-32.0 [facility] Nucleated RBC/100 WBC (Bld) [Ratio] 0 % 0-5 [facility] MCHC Auto (RBC) [Mass/Vol]Or dered By: Dr. Ohara on 05-15-2022 MCHC (RBC) [Mass/Vol] 33.3 g/dL 32-36 [facility] Mucus LM Ql (Urine sed)Order ed By: Dr. Ohara on 05-15-2022 Mucus Ql (Urine sed) 0 SEEN /hpf [facility] Nitrite Test strip Ql (U)Ord ered By: Dr. Ohara on 05-15-2022 Nitrite Ql (U) Positive Negative [facility] No Panel InformationOrdered By: Dr. Ohara on 05-15-2022 Estimated Creatinine Clearance Calc 54.79 ml/min [facility] Estimated GFR (MDRD) Amer 76 mL/min >60 [facility] Comment on above: GFR Calc Estimated GFR (MDRD) Non-Af Amer 63 mL/min >60 [facility] Comment on above: Non- GFR Calc Platelets bldOrdered By: Dr. Ohara on 05-15-2022 Platelets (Bld) [#/Vol] 261 10*3/uL 150-450 [facility] Protein Test strip Ql (U)Ord ered By: Dr. Ohara on 05-15-2022 Protein Ql (U) 30 mg/dl Negative [facility] Serum or plasma calcium thi urement (mass/volume)Ordered By: Dr. Ohara on 05-15-2022 Calcium [Mass/Vol] 9.6 mg/dL 8.5-10.1 [facility] Serum or plasma creatinine m easurement (mass/volume)Ordered By: Dr. Ohara on 05-15-2022 Creatinine [Mass/Vol] 1.03 mg/dL 0.55-1.02 [facility] Comment on above: The validity of the calculated GFR & GFRAA in patients over 70 years has not been determined. Clinical correlation is essential. Serum or plasma urea nitroge n measurement (mass/volume)Ordered By: Dr. Ohara on 05-15-2022 Urea nitrogen [Mass/Vol] 14 mg/dL 7-18 [facility] Squamous epithelial cells de tection in urine sediment by light microscopyOrdered By: Dr. Ohara on 05-15-2022 Epithelial cells.squamous LM Ql (Urine sed) 0 SEEN /hpf 5-10 [facility] Thin prep Papanicolaou smear with manual screeningOrdered By: Dr. Ohara on 05-15-2022 Thin prep Papanicolaou smear with manual screening 6 5-15 [facility] Urine blood detectionOrdered By: Dr. Ohara on 05-15-2022 RBC Ql (U) 10 /ul Negative [facility] RBC Ql (U) 0 SEEN /hpf 0-5 [facility] Urine clarityOrdered By: Dr. Ohara on 05-15-2022 Clarity (U) Sl. Cloudy Clear [facility] Urine color determinationOrd ered By: Dr. Ohara on 05-15-2022 Color (U) Yellow Yellow [facility] Urine glucose detectionOrder ed By: Dr. Ohara on 05-15-2022 Glucose Ql (U) 1000 mg/dl Normal [facility] Urine leukocyte esterase det ection by dipstickOrdered By: Dr. Ohara on 05-15-2022 Leukocyte esterase Test strip Ql (U) 500 /ul Negative [facility] Urine pHOrdered By: Dr. Nicola boogie on 05-15-2022 pH (U) 7.0 [pH] 5.0 - 8.0 [facility] Urine sediment bacteria coun t by microscopy (number/high power field)Ordered By: Dr. Ohara on 05-15-2022 Bacteria LM.HPF (Urine sed) [#/Area] 0 /[HPF] None Seen [facility] Urine specific gravity measu rementOrdered By: Dr. Ohara on 05-15-2022 Specific gravity (U) [Rel density] 1.010 1.002-1.03 0 [facility] Urobilinogen Auto test strip Ql (U)Ordered By: Dr. Ohara on 05-15-2022 Urobilinogen Ql (U) Normal mg/dl Normal [facility] LABORATORYOrdered By: Corinne Casey on 04-27-2022 Blood Glucose Testing Reason Routine (04/27/22 11:29 AM) [facility] Glucose [Mass/Vol] 110 mg/dL Invalid Interpretation Code 70 - 110 mg/dL [facility] Blood Glucose Testing Reason Routine (04/27/22 7:53 AM) [facility] Glucose [Mass/Vol] 121 mg/dL Invalid Interpretation Code 70 - 110 mg/dL [facility] LABORATORYOrdered By: Rebecca Farrell on 04-27-2022 Basophil, Absolute 0.1 103/mcL Invalid Interpretation Code 0.0 - 0.2 10^3/mcL AO Workflow SS Basophils/100 WBC (Bld) 1.3 % Invalid Interpretation Code 0.0 - 2.5 % AO Workflow SS Eosinophil, Absolute 0.3 103/mcL Invalid Interpretation Code 0.0 - 0.4 10^3/mcL AO Workflow SS Eosinophils/100 WBC (Bld) 5.2 % Invalid Interpretation Code 0.0 - 7.0 % AO Workflow SS Erythrocyte distribution width (RBC) [Ratio] 15.3 % Invalid Interpretation Code 11.5 - 14.5 % AO Workflow SS Hematocrit (Bld) [Volume fraction] 33.4 % Invalid Interpretation Code 37.0 - 47.0 % AO Workflow SS Hemoglobin (Bld) [Mass/Vol] 11.2 G/dL Invalid Interpretation Code 12.0 - 16.0 G/dL AO Workflow SS Lymphocyte, Absolute 2.6 103/mcL Invalid Interpretation Code 0.8 - 3.9 10^3/mcL AO Workflow SS Lymphocytes/100 WBC (Bld) 40.0 % Invalid Interpretation Code 10.0 - 50.0 % AO Workflow SS MCH (RBC) [Entitic mass] 28.6 pg Invalid Interpretation Code 27.0 - 31.2 pg AO Workflow SS MCHC 33.6 G/dL Invalid Interpretation Code 33.0 - 37.0 G/dL AO Workflow SS MCV (RBC) [Entitic vol] 85.1 fL Invalid Interpretation Code 80.0 - 94.0 fL AO Workflow SS Monocyte, Absolute 0.7 103/mcL Invalid Interpretation Code 0.2 - 1.0 10^3/mcL AO Workflow SS Monocytes/100 WBC (Bld) 10.9 % Invalid Interpretation Code 1.7 - 13.0 % AO Workflow SS Neutrophil, Absolute 2.8 103/mcL Invalid Interpretation Code 2.9 - 6.2 10^3/mcL AO Workflow SS Neutrophils/100 WBC (Bld) 42.6 % Invalid Interpretation Code 37.0 - 80.0 % AO Workflow SS Platelet mean volume (Bld) [Entitic vol] 8.4 fL Invalid Interpretation Code 7.4 - 10.4 fL AO Workflow SS Platelets (Bld) [#/Vol] 197 103/mcL Invalid Interpretation Code 130 - 400 10^3/mcL AO Workflow SS RBC (Bld) [#/Vol] 3.92 106/mcL Invalid Interpretation Code 4.20 - 5.40 10^6/mcL AO Workflow SS WBC (Bld) [#/Vol] 6.6 103/mcL Invalid Interpretation Code 4.6 - 10.8 10^3/mcL AO Workflow SS LABORATORYOrdered By: Rosario Cagle on 04-27-2022 Calcium [Mass/Vol] 8.3 mg/dL Invalid Interpretation Code 8.4 - 10.2 mg/dL AO ADM SS Chloride [Moles/Vol] 107 mmol/L Invalid Interpretation Code 98 - 107 mmol/L AO ADM SS CO2 [Moles/Vol] 26 mmol/L Invalid Interpretation Code 22 - 29 mmol/L AO ADM SS Creatinine [Mass/Vol] 0.75 mg/dL Invalid Interpretation Code 0.55 - 1.02 mg/dL AO ADM SS Electrolyte Balance 7.0 mEq/L Invalid Interpretation Code 4.0 - 15.0 mEq/L AO ADM SS Glucose [Mass/Vol] 156 mg/dL Invalid Interpretation Code 70 - 105 mg/dL AO ADM SS Potassium [Moles/Vol] 3.9 mmol/L Invalid Interpretation Code 3.5 - 5.1 mmol/L AO ADM SS Sodium [Moles/Vol] 140 mmol/L Invalid Interpretation Code 136 - 145 mmol/L AO ADM SS Urea nitrogen [Mass/Vol] 8 mg/dL Invalid Interpretation Code 7 - 18 mg/dL AO ADM SS Urea nitrogen/Creatinine [Mass ratio] 11 ratio Invalid Interpretation Code 7 - 27 ratio AO ADM SS LABORATORYOrdered By: SYSTEM SYSTEM on 04-27-2022 GFR 104 ml/min/1.73sqm Invalid Interpretation Code AO Chemistry S GFR Non- 86 ml/min/1.73sqm Invalid Interpretation Code AO Chemistry S LABORATORYOrdered By: Jordan Shine on 04-26-2022 Blood Glucose Testing Reason Routine (04/26/22 8:54 PM) [facility] Glucose [Mass/Vol] 126 mg/dL Invalid Interpretation Code 70 - 110 mg/dL [facility] LABORATORYOrdered By: Carmen Chow on 04-26-2022 Basophil, Absolute 0.1 103/mcL Invalid Interpretation Code 0.0 - 0.2 10^3/mcL AO Workflow SS Basophils/100 WBC (Bld) 1.0 % Invalid Interpretation Code 0.0 - 2.5 % AO Workflow SS Calcium [Mass/Vol] 8.4 mg/dL Invalid Interpretation Code 8.4 - 10.2 mg/dL AO ADM SS Chloride [Moles/Vol] 106 mmol/L Invalid Interpretation Code 98 - 107 mmol/L AO ADM SS CO2 [Moles/Vol] 24 mmol/L Invalid Interpretation Code 22 - 29 mmol/L AO ADM SS Creatinine [Mass/Vol] 0.86 mg/dL Invalid Interpretation Code 0.55 - 1.02 mg/dL AO ADM SS Electrolyte Balance 10.0 mEq/L Invalid Interpretation Code 4.0 - 15.0 mEq/L AO ADM SS Eosinophil, Absolute 0.4 103/mcL Invalid Interpretation Code 0.0 - 0.4 10^3/mcL AO Workflow SS Eosinophils/100 WBC (Bld) 4.2 % Invalid Interpretation Code 0.0 - 7.0 % AO Workflow SS Erythrocyte distribution width (RBC) [Ratio] 15.6 % Invalid Interpretation Code 11.5 - 14.5 % AO Workflow SS Glucose [Mass/Vol] 130 mg/dL Invalid Interpretation Code 70 - 105 mg/dL AO ADM SS Hematocrit (Bld) [Volume fraction] 33.5 % Invalid Interpretation Code 37.0 - 47.0 % AO Workflow SS Hemoglobin (Bld) [Mass/Vol] 11.3 G/dL Invalid Interpretation Code 12.0 - 16.0 G/dL AO Workflow SS Lymphocyte, Absolute 3.1 103/mcL Invalid Interpretation Code 0.8 - 3.9 10^3/mcL AO Workflow SS Lymphocytes/100 WBC (Bld) 37.1 % Invalid Interpretation Code 10.0 - 50.0 % AO Workflow SS MCH (RBC) [Entitic mass] 29.2 pg Invalid Interpretation Code 27.0 - 31.2 pg AO Workflow SS MCHC 33.7 G/dL Invalid Interpretation Code 33.0 - 37.0 G/dL AO Workflow SS MCV (RBC) [Entitic vol] 86.8 fL Invalid Interpretation Code 80.0 - 94.0 fL AO Workflow SS Monocyte, Absolute 1.1 103/mcL Invalid Interpretation Code 0.2 - 1.0 10^3/mcL AO Workflow SS Monocytes/100 WBC (Bld) 13.5 % Invalid Interpretation Code 1.7 - 13.0 % AO Workflow SS Neutrophil, Absolute 3.7 103/mcL Invalid Interpretation Code 2.9 - 6.2 10^3/mcL AO Workflow SS Neutrophils/100 WBC (Bld) 44.2 % Invalid Interpretation Code 37.0 - 80.0 % AO Workflow SS Platelet mean volume (Bld) [Entitic vol] 9.8 fL Invalid Interpretation Code 7.4 - 10.4 fL AO Workflow SS Platelets (Bld) [#/Vol] 192 103/mcL Invalid Interpretation Code 130 - 400 10^3/mcL AO Workflow SS Potassium [Moles/Vol] 3.8 mmol/L Invalid Interpretation Code 3.5 - 5.1 mmol/L AO ADM SS RBC (Bld) [#/Vol] 3.86 106/mcL Invalid Interpretation Code 4.20 - 5.40 10^6/mcL AO Workflow SS Sodium [Moles/Vol] 140 mmol/L Invalid Interpretation Code 136 - 145 mmol/L AO ADM SS Urea nitrogen [Mass/Vol] 9 mg/dL Invalid Interpretation Code 7 - 18 mg/dL AO ADM SS Urea nitrogen/Creatinine [Mass ratio] 10 ratio Invalid Interpretation Code 7 - 27 ratio AO ADM SS WBC (Bld) [#/Vol] 8.4 103/mcL Invalid Interpretation Code 4.6 - 10.8 10^3/mcL AO Workflow SS LABORATORYOrdered By: SYSTEM SYSTEM on 04-26-2022 GFR 89 ml/min/1.73sqm Invalid Interpretation Code AO Chemistry S GFR Non- 73 ml/min/1.73sqm Invalid Interpretation Code AO Chemistry S LABORATORYOrdered By: Chad Fernandez on 04-26-2022 HbA1c (Bld) [Mass fraction] 9.0 % Invalid Interpretation Code 4.3 - 6.4 % AO ADM SS LABORATORYOrdered By: Rosario Cagle on 04-25-2022 Basophil, Absolute 0.0 103/mcL Invalid Interpretation Code 0.0 - 0.2 10^3/mcL AO Workflow SS Basophils/100 WBC (Bld) 0.6 % Invalid Interpretation Code 0.0 - 2.5 % AO Workflow SS Calcium [Mass/Vol] 8.4 mg/dL Invalid Interpretation Code 8.4 - 10.2 mg/dL AO ADM SS Chloride [Moles/Vol] 107 mmol/L Invalid Interpretation Code 98 - 107 mmol/L AO ADM SS CO2 [Moles/Vol] 24 mmol/L Invalid Interpretation Code 22 - 29 mmol/L AO ADM SS Creatinine [Mass/Vol] 0.89 mg/dL Invalid Interpretation Code 0.55 - 1.02 mg/dL AO ADM SS Electrolyte Balance 9.0 mEq/L Invalid Interpretation Code 4.0 - 15.0 mEq/L AO ADM SS Eosinophil, Absolute 0.1 103/mcL Invalid Interpretation Code 0.0 - 0.4 10^3/mcL AO Workflow SS Eosinophils/100 WBC (Bld) 1.6 % Invalid Interpretation Code 0.0 - 7.0 % AO Workflow SS Erythrocyte distribution width (RBC) [Ratio] 15.9 % Invalid Interpretation Code 11.5 - 14.5 % AO Workflow SS Glucose [Mass/Vol] 136 mg/dL Invalid Interpretation Code 70 - 105 mg/dL AO ADM SS Hematocrit (Bld) [Volume fraction] 32.8 % Invalid Interpretation Code 37.0 - 47.0 % AO Workflow SS Hemoglobin (Bld) [Mass/Vol] 10.9 G/dL Invalid Interpretation Code 12.0 - 16.0 G/dL AO Workflow SS Lymphocyte, Absolute 1.5 103/mcL Invalid Interpretation Code 0.8 - 3.9 10^3/mcL AO Workflow SS Lymphocytes/100 WBC (Bld) 24.6 % Invalid Interpretation Code 10.0 - 50.0 % AO Workflow SS MCH (RBC) [Entitic mass] 28.3 pg Invalid Interpretation Code 27.0 - 31.2 pg AO Workflow SS MCHC 33.1 G/dL Invalid Interpretation Code 33.0 - 37.0 G/dL AO Workflow SS MCV (RBC) [Entitic vol] 85.4 fL Invalid Interpretation Code 80.0 - 94.0 fL AO Workflow SS Monocyte, Absolute 1.2 103/mcL Invalid Interpretation Code 0.2 - 1.0 10^3/mcL AO Workflow SS Monocytes/100 WBC (Bld) 19.8 % Invalid Interpretation Code 1.7 - 13.0 % AO Workflow SS Neutrophil, Absolute 3.3 103/mcL Invalid Interpretation Code 2.9 - 6.2 10^3/mcL AO Workflow SS Neutrophils/100 WBC (Bld) 53.4 % Invalid Interpretation Code 37.0 - 80.0 % AO Workflow SS Platelet Estimate Normal (04/25/22 5:22 AM) Invalid Interpretation Code AO Hematology S Platelet mean volume (Bld) [Entitic vol] 8.7 fL Invalid Interpretation Code 7.4 - 10.4 fL AO Workflow SS Platelets (Bld) [#/Vol] 183 103/mcL Invalid Interpretation Code 130 - 400 10^3/mcL AO Workflow SS Potassium [Moles/Vol] 3.8 mmol/L Invalid Interpretation Code 3.5 - 5.1 mmol/L AO ADM SS RBC (Bld) [#/Vol] 3.84 106/mcL Invalid Interpretation Code 4.20 - 5.40 10^6/mcL AO Workflow SS Sodium [Moles/Vol] 140 mmol/L Invalid Interpretation Code 136 - 145 mmol/L AO ADM SS Urea nitrogen [Mass/Vol] 10 mg/dL Invalid Interpretation Code 7 - 18 mg/dL AO ADM SS Urea nitrogen/Creatinine [Mass ratio] 11 ratio Invalid Interpretation Code ratio AO ADM SS WBC (Bld) [#/Vol] 6.1 103/mcL Invalid Interpretation Code 4.6 - 10.8 10^3/mcL AO Workflow SS LABORATORYOrdered By: SYSTEM SYSTEM on 04-25-2022 GFR 85 ml/min/1.73sqm Invalid Interpretation Code AO Chemistry S GFR Non- 70 ml/min/1.73sqm Invalid Interpretation Code AO Chemistry S No Panel Informationon 04-25 Culture Urine Culture results pending. [facility] GENTAMICIN:SUSC:PT:ISOLATE:O RDQN:MICon 04-24-2022 Gentamicin KURT [Susc] >100,000 cfu/ml Providencia stuartii >100,000 cfu/ml Morganella morganii KURT to follow >100,000 cfu/ml Alcaligenes faecalis 1,000 cfu/ml Group B Beta Hemolytic Strep (Strep agalactiae) Sensitivity testing is not recommended for one of the following reasons: 1. Established susceptibility patterns are available or 2. Interpretative criteria are not available. [facility] Gentamicin KURT [Susc]on 03-30 Alcaligenes faecalis Alcaligenes faecalis [facility] Morganella morganii Morganella morganii [facility] Providencia stuartii Providencia stuartii [facility] LABORATORYOrdered By: Carmen Chow on 04-24-2022 Lactate [Moles/Vol] 0.7 mmol/L Invalid Interpretation Code 0.4 - 2.0 mmol/L AO ADM SS LABORATORYOrdered By: Anahy Dowling on 04-24-2022 Appearance (U) Slightly Cloudy *ABN* (04/24/22 12:31 AM) Invalid Interpretation Code Clear AO Auto Urine SS Bacteria LM.HPF (Urine sed) [#/Area] 4 /[HPF] Invalid Interpretation Code AO Auto Urine SS Bilirubin Ql (U) Negative (04/24/22 12:31 AM) Invalid Interpretation Code Negative AO Auto Urine SS Color (U) Yellow (04/24/22 12:31 AM) Invalid Interpretation Code AO Auto Urine SS Glucose Test strip (U) [Mass/Vol] Negative Invalid Interpretation Code Negativemg /dL AO Auto Urine SS HCG ( test) Ql Negative (04/24/22 12:31 AM) Invalid Interpretation Code AO Manual Urine SS Hemoglobin Auto test strip (U) [Mass/Vol] Trace *ABN* (04/24/22 12:31 AM) Invalid Interpretation Code Negative AO Auto Urine SS Ketones Ql (U) Negative Invalid Interpretation Code Negativemg /dL AO Auto Urine SS Lactate [Moles/Vol] 1.0 mmol/L Invalid Interpretation Code 0.4 - 2.0 mmol/L AO ADM SS Monocyte distribution width Auto (Bld) [Entitic vol] 24.85 Invalid Interpretation Code 0.00 - 20.00 AO Workflow SS Comment on above: Result Comment: For adults in ED, MDW>20.0 may be associated with a higher risk of sepsis during the first 12hrs of hospital admission test (u) int Not detected Invalid Interpretation Code AO Manual Urine SS UA Coarse Granular Casts 0-5 /LPF Invalid Interpretation Code AO Auto Urine SS UA Leuk Est Moderate *ABN* (04/24/22 12:31 AM) Invalid Interpretation Code Negative AO Auto Urine SS UA Nitrite Positive *ABN* (04/24/22 12:31 AM) Invalid Interpretation Code Negative AO Auto Urine SS UA pH 7.5 (04/24/22 12:31 AM) Invalid Interpretation Code 5.0 - 8.0 AO Auto Urine SS UA Protein Trace mg/dL Invalid Interpretation Code Negativemg /dL AO Auto Urine SS UA RBC 0-5 /HPF Invalid Interpretation Code None Seen/HPF AO Auto Urine SS UA Spec Grav 1.020 (04/24/22 12:31 AM) Invalid Interpretation Code 1.015-1.02 5 AO Auto Urine SS UA Specimen Type Clean Catch (04/24/22 12:31 AM) Invalid Interpretation Code AO Auto Urine SS UA Squam Epithelial 5-10 /HPF Invalid Interpretation Code None Seen/HPF AO Auto Urine SS UA Urobilinogen 0.2 E.U./dL Invalid Interpretation Code 0.2-1.0E.U ./dL AO Auto Urine SS WBC LM.HPF (Urine sed) [#/Area] 10-15 /HPF Invalid Interpretation Code None Seen/HPF AO Auto Urine SS No Panel Informationon 04-24 Microscopic examination of blood, culture Culture has been received in lab and is no growth to date. Routine cultures are held for [address] [facility] Laboratory - Microbiology an d Antimicrobial susceptibilityOrdered By: Alexander Hooks on 04-16-2022 Bacteria identified Cx Nom (Bld) No growth in 5 days. [facility] Bacteria identified Cx Nom ( Wound)Ordered By: Alexander Hooks on 04-15-2022 Wound Culture Streptococcus group C [facility] Wound Culture Negative [facility] Wound Culture Morganella morganii sp morgani [facility] Culture, urineOrdered By: Divya Hooks on 04-13-2022 Bacteria identified Cx Nom (U) Culture exhibits no growth. [facility] Absolute lymphocyte countOrd ered By: Alexander Hooks on 04-11-2022 Lymphocytes Auto (Unsp spec) [#/Vol] 2.94 10*3/uL 0.83-4.51 [facility] Basophil percentageOrdered B y: Alexander Hooks on 04-11-2022 Basophils/100 WBC (Bld) 0.6 % 0-1 [facility] Chloride [Moles/Vol] 101 mmol/L 98-107 [facility] Eosinophils/100 WBC (Bld) 1.5 % 0-5 [facility] Glucose [Mass/Vol] 190 mg/dL 74-106 [facility] Comment on above: Fasting Glucose resu lt greater than or equal to 126 mg/dL suggests DIABETES MELLITUS per A.D.A. criteria. Lactate [Moles/Vol] 1.4 mmol/L 0.4-2.0 [facility] Neutrophils (Bld) [#/Vol] 8.0 10*3/uL 2.0-7.7 [facility] Neutrophils/100 WBC (Bld) 64.3 % 47-70 [facility] Potassium [Moles/Vol] 3.9 mmol/L 3.5-5.1 [facility] Sodium [Moles/Vol] 135 mmol/L 136-145 [facility] WBC (Bld) [#/Vol] 12.5 10*3/uL 4.4-11.0 [facility] Basophil percentage 50-100 SEEN /hpf 0-5 [facility] Bilirubin Test strip Ql (U)O rdered By: Alexander Hooks on 04-11-2022 Bilirubin Ql (U) Negative Negative [facility] Blood erythrocytes count (nu mber/volume)Ordered By: Alexander Hooks on 04-11-2022 RBC (Bld) [#/Vol] 4.48 10*6/uL 4.2-5.4 [facility] Blood hemoglobin measurement (mass/volume)Ordered By: Alexander Hooks on 04-11-2022 Hemoglobin (Bld) [Mass/Vol] 12.4 g/dL 12.0-15.0 [facility] Blood lymphocytes/100 leukoc ytesOrdered By: Alexander Hooks on 04-11-2022 Lymphocytes/100 WBC (Bld) 23.5 % 19-41 [facility] Blood monocytes/100 leukocyt esOrdered By: Alexander Hooks on 04-11-2022 Monocytes/100 WBC (Bld) 9.4 % 0-10 [facility] Blood platelet mean volumeOr dered By: Alexander Hooks on 04-11-2022 Platelet mean volume (Bld) [Entitic vol] 10.9 fL 6.2-12.0 [facility] Determination of erythrocyte mean corpuscular volume (MCV)Ordered By: Alexander Hooks on 04-11-2022 MCV (RBC) [Entitic vol] 86.2 fL 81-99 [facility] Erythrocyte sedimentation ra teOrdered By: Alexander Hooks on 04-11-2022 ESR (Bld) [Velocity] 122 mm/h 0-30 [facility] Gram stain for investigation of transfusion reactionOrdered By: Alexander Hooks on 04-11-2022 Microscopic observation Gram stain Nom (Unsp spec) [facility] Hematocrit Auto (Bld) [Volum e fraction]Ordered By: Alexander Hooks on 04-11-2022 Hematocrit (Bld) [Volume fraction] 38.6 % 37-47 [facility] Ketones Test strip Ql (U)Ord ered By: Alexander Hooks on 04-11-2022 Ketones Ql (U) 5 mg/dl Negative [facility] Laboratory - Chemistry and C hemistry - challengeOrdered By: Alexander Hooks on 04-11-2022 CO2 [Moles/Vol] 26.0 mmol/L 21.0-32.0 [facility] Urea nitrogen/Creatinine [Mass ratio] 13.4 mg/mg 10-20 [facility] HCG ( test) Ql (U) Negative [facility] Comment on above: Very dilute urine sp ecimens, as indicated by a low specificgravity, may not contain event marketing representative levels of hCG. If is still suspected, a first morning urinespecimen should be collected 48 hours later and tested. Laboratory - Hematology and Cell countsOrdered By: Alexander Hooks on 04-11-2022 Erythrocyte distribution width (RBC) [Entitic vol] 44.8 fL 35.1-43.9 [facility] Erythrocyte distribution width (RBC) [Ratio] 14.3 % 11.6-14.6 [facility] Immature granulocytes/100 WBC (Bld) 0.700 % 0.0-0.9 [facility] Comment on above: IG% - Immature Granu locytes (promyelocytes, myelocytes and metamyelocytes) > 1% indicates that a LEFT SHIFT is Present. MCH (RBC) [Entitic mass] 27.7 pg 27.0-32.0 [facility] Nucleated RBC/100 WBC (Bld) [Ratio] 0 % 0-5 [facility] MCHC Auto (RBC) [Mass/Vol]Or dered By: Alexander Hooks on 04-11-2022 MCHC (RBC) [Mass/Vol] 32.1 g/dL 32-36 [facility] Mucus LM Ql (Urine sed)Order ed By: Alexander Hooks on 04-11-2022 Mucus Ql (Urine sed) 0 SEEN /hpf [facility] Nitrite Test strip Ql (U)Ord ered By: Alexander Hooks on 04-11-2022 Nitrite Ql (U) Positive Negative [facility] No Panel InformationOrdered By: Alexander Hooks on 04-11-2022 Estimated Creatinine Clearance Calc 62.70 ml/min [facility] Estimated GFR (MDRD) Amer 89 mL/min >60 [facility] Comment on above: GFR Calc Estimated GFR (MDRD) Non-Af Amer 74 mL/min >60 [facility] Comment on above: Non- GFR Calc Platelets bldOrdered By: Umesh Hooks on 04-11-2022 Platelets (Bld) [#/Vol] 328 10*3/uL 150-450 [facility] Protein Test strip Ql (U)Ord ered By: Alexander Hooks on 04-11-2022 Protein Ql (U) 100 mg/dl Negative [facility] Serum or plasma C reactive p rotein measurement (mass/volume)Ordered By: Alexander Hooks on 04-11-2022 CRP [Mass/Vol] 22.40 mg/L 0.0-3.0 [facility] Comment on above: C-Reactive Protein ( CRP) provides useful information for thediagnosis, therapy and monitoring of inflammatory processesand associated diseases. For the evaluation of Relative Riskfor Cardiovascular Disease, a High Sensitivity CRP (HSCRP)should be ordered. Serum or plasma calcium thi urement (mass/volume)Ordered By: Alexander Hooks on 04-11-2022 Calcium [Mass/Vol] 9.9 mg/dL 8.5-10.1 [facility] Serum or plasma creatinine m easurement (mass/volume)Ordered By: Alexander Hooks on 04-11-2022 Creatinine [Mass/Vol] 0.90 mg/dL 0.55-1.02 [facility] Comment on above: The validity of the calculated GFR & GFRAA in patients over 70 years has not been determined. Clinical correlation is essential. Serum or plasma urea nitroge n measurement (mass/volume)Ordered By: Alexander Hooks on 04-11-2022 Urea nitrogen [Mass/Vol] 12 mg/dL 7-18 [facility] Squamous epithelial cells de tection in urine sediment by light microscopyOrdered By: Alexander Hooks on 04-11-2022 Epithelial cells.squamous LM Ql (Urine sed) 0 SEEN /hpf 5-10 [facility] Thin prep Papanicolaou smear with manual screeningOrdered By: Alexander Hooks on 04-11-2022 Thin prep Papanicolaou smear with manual screening 8 5-15 [facility] Urine blood detectionOrdered By: Alexander Hooks on 04-11-2022 RBC Ql (U) 50 /ul Negative [facility] RBC Ql (U) 0-5 SEEN /hpf 0-5 [facility] Urine clarityOrdered By: Umesh Hooks on 04-11-2022 Clarity (U) Cloudy Clear [facility] Urine color determinationOrd ered By: Alexander Hooks on 04-11-2022 Color (U) Yellow Yellow [facility] Urine glucose detectionOrder ed By: Alexander Hooks on 04-11-2022 Glucose Ql (U) Normal mg/dl Normal [facility] Urine leukocyte esterase det ection by dipstickOrdered By: Alexander Hooks on 04-11-2022 Leukocyte esterase Test strip Ql (U) 500 /ul Negative [facility] Urine pHOrdered By: Alexander christie on 04-11-2022 pH (U) 6.0 [pH] 5.0 - 8.0 [facility] Urine sediment bacteria coun t by microscopy (number/high power field)Ordered By: Alexander Hooks on 04-11-2022 Bacteria LM.HPF (Urine sed) [#/Area] 2 /[HPF] None Seen [facility] Urine specific gravity measu rementOrdered By: Alexander Hooks on 04-11-2022 Specific gravity (U) [Rel density] 1.020 1.002-1.03 0 [facility] Urobilinogen Auto test strip Ql (U)Ordered By: Alexander Hooks on 04-11-2022 Urobilinogen Ql (U) Normal mg/dl Normal [facility] Culture, urineOrdered By: Dr Shiva Barcenas on 03-25-2022 Bacteria identified Cx Nom (U) Providencia stuartii [facility] Absolute lymphocyte countOrd ered By: Dr. Barcenas on 03-22-2022 Lymphocytes Auto (Unsp spec) [#/Vol] 3.14 10*3/uL 0.83-4.51 [facility] Basophil percentageOrdered B y: Dr. Barcenas on 03-22-2022 Basophil percentage 25-50 SEEN /hpf 0-5 [facility] Basophils/100 WBC (Bld) 0.6 % 0-1 [facility] Eosinophils/100 WBC (Bld) 0.9 % 0-5 [facility] Neutrophils (Bld) [#/Vol] 9.5 10*3/uL 2.0-7.7 [facility] Neutrophils/100 WBC (Bld) 67.7 % 47-70 [facility] WBC (Bld) [#/Vol] 14.1 10*3/uL 4.4-11.0 [facility] Bilirubin Test strip Ql (U)O rdered By: Dr. Barcenas on 03-22-2022 Bilirubin Ql (U) Negative Negative [facility] Blood erythrocytes count (nu mber/volume)Ordered By: Dr. Barcenas on 03-22-2022 RBC (Bld) [#/Vol] 4.53 10*6/uL 4.2-5.4 [facility] Blood hemoglobin measurement (mass/volume)Ordered By: Dr. Barcenas on 03-22-2022 Hemoglobin (Bld) [Mass/Vol] 12.6 g/dL 12.0-15.0 [facility] Blood lymphocytes/100 leukoc ytesOrdered By: Dr. Barcenas on 03-22-2022 Lymphocytes/100 WBC (Bld) 22.3 % 19-41 [facility] Blood monocytes/100 leukocyt esOrdered By: Dr. Barcenas on 03-22-2022 Monocytes/100 WBC (Bld) 7.9 % 0-10 [facility] Blood platelet mean volumeOr dered By: Dr. Barcenas on 03-22-2022 Platelet mean volume (Bld) [Entitic vol] 10.6 fL 6.2-12.0 [facility] Determination of erythrocyte mean corpuscular volume (MCV)Ordered By: Dr. Barcenas on 03-22-2022 MCV (RBC) [Entitic vol] 87.4 fL 81-99 [facility] Glucose Glucometer (BldC) [M ass/Vol]Ordered By: Dr. Barcenas on 03-22-2022 Glucose [Mass/Vol] 125 mg/dL 74-106 [facility] Comment on above: MANAGEMENT OF PATIEN T CARE PER NURSING PROTOCOL Hematocrit Auto (Bld) [Volum e fraction]Ordered By: Dr. Barcenas on 03-22-2022 Hematocrit (Bld) [Volume fraction] 39.6 % 37-47 [facility] Ketones Test strip Ql (U)Ord ered By: Dr. Barcenas on 03-22-2022 Ketones Ql (U) 15 mg/dl Negative [facility] Laboratory - Hematology and Cell countsOrdered By: Dr. Barcenas on 03-22-2022 Erythrocyte distribution width (RBC) [Entitic vol] 45.1 fL 35.1-43.9 [facility] Erythrocyte distribution width (RBC) [Ratio] 14.0 % 11.6-14.6 [facility] Immature granulocytes/100 WBC (Bld) 0.600 % 0.0-0.9 [facility] Comment on above: IG% - Immature Granu locytes (promyelocytes, myelocytes and metamyelocytes) > 1% indicates that a LEFT SHIFT is Present. MCH (RBC) [Entitic mass] 27.8 pg 27.0-32.0 [facility] Nucleated RBC/100 WBC (Bld) [Ratio] 0 % 0-5 [facility] MCHC Auto (RBC) [Mass/Vol]Or dered By: Dr. Barcenas on 03-22-2022 MCHC (RBC) [Mass/Vol] 31.8 g/dL 32-36 [facility] Mucus LM Ql (Urine sed)Order ed By: Dr. Barcenas on 03-22-2022 Mucus Ql (Urine sed) 0 SEEN /hpf [facility] Nitrite Test strip Ql (U)Ord ered By: Dr. Barcenas on 03-22-2022 Nitrite Ql (U) Positive Negative [facility] Platelets bldOrdered By: Dr. Barcenas on 03-22-2022 Platelets (Bld) [#/Vol] 406 10*3/uL 150-450 [facility] Protein Test strip Ql (U)Ord ered By: Dr. Barcenas on 03-22-2022 Protein Ql (U) 30 mg/dl Negative [facility] Squamous epithelial cells de tection in urine sediment by light microscopyOrdered By: Dr. Barcenas on 03-22-2022 Epithelial cells.squamous LM Ql (Urine sed) 0-5 SEEN /hpf 5-10 [facility] Urine blood detectionOrdered By: Dr. Barcenas on 03-22-2022 RBC Ql (U) Negative Negative [facility] RBC Ql (U) 0 SEEN /hpf 0-5 [facility] Urine clarityOrdered By: Dr. Barcenas on 03-22-2022 Clarity (U) Sl. Cloudy Clear [facility] Urine color determinationOrd ered By: Dr. Barcenas on 03-22-2022 Color (U) Yellow Yellow [facility] Urine glucose detectionOrder ed By: Dr. Barcenas on 03-22-2022 Glucose Ql (U) Normal mg/dl Normal [facility] Urine leukocyte esterase det ection by dipstickOrdered By: Dr. Barcenas on 03-22-2022 Leukocyte esterase Test strip Ql (U) 500 /ul Negative [facility] Urine pHOrdered By: Dr. Andria sandhu on 03-22-2022 pH (U) 6.0 [pH] 5.0 - 8.0 [facility] Urine sediment bacteria coun t by microscopy (number/high power field)Ordered By: Dr. Barcenas on 03-22-2022 Bacteria LM.HPF (Urine sed) [#/Area] 1 /[HPF] None Seen [facility] Urine specific gravity measu rementOrdered By: Dr. Barcenas on 03-22-2022 Specific gravity (U) [Rel density] 1.010 1.002-1.03 0 [facility] Urobilinogen Auto test strip Ql (U)Ordered By: Dr. Barcenas on 03-22-2022 Urobilinogen Ql (U) Normal mg/dl Normal [facility] LABORATORYOrdered By: lD Neff on 02-15-2022 Albumin BCP dye [Mass/Vol] 3.9 G/dL Invalid Interpretation Code 3.5 - 5.0 G/dL AO ADM SS Albumin/Globulin [Mass ratio] 0.8 {ratio} Invalid Interpretation Code 1.1 - 2.5 ratio AO ADM SS ALP [Catalytic activity/Vol] 114 U/L Invalid Interpretation Code 40 - 135 U/L AO ADM SS ALT With P-5'-P [Catalytic activity/Vol] 34 U/L Invalid Interpretation Code 14 - 59 U/L AO ADM SS Appearance (U) Slightly Cloudy *ABN* (02/15/22 6:37 PM) Invalid Interpretation Code Clear AO Auto Urine SS AST With P-5'-P [Catalytic activity/Vol] 21 U/L Invalid Interpretation Code 10 - 40 U/L AO ADM SS Bacteria LM.HPF (Urine sed) [#/Area] 4 /[HPF] Invalid Interpretation Code AO Auto Urine SS Basophil, Absolute 0.2 103/mcL Invalid Interpretation Code 0.0 - 0.2 10^3/mcL AO Workflow SS Basophils/100 WBC (Bld) 1.2 % Invalid Interpretation Code 0.0 - 2.5 % AO Workflow SS Bilirubin [Mass/Vol] 0.3 mg/dL Invalid Interpretation Code 0.2 - 1.0 mg/dL AO ADM SS Bilirubin Ql (U) Negative (02/15/22 6:37 PM) Invalid Interpretation Code Negative AO Auto Urine SS Calcium [Mass/Vol] 10.3 mg/dL Invalid Interpretation Code 8.4 - 10.2 mg/dL AO ADM SS Chloride [Moles/Vol] 97 mmol/L Invalid Interpretation Code 98 - 107 mmol/L AO ADM SS CO2 [Moles/Vol] 27 mmol/L Invalid Interpretation Code 22 - 29 mmol/L AO ADM SS Color (U) Yellow (02/15/22 6:37 PM) Invalid Interpretation Code AO Auto Urine SS Creatinine [Mass/Vol] 1.01 mg/dL Invalid Interpretation Code 0.55 - 1.02 mg/dL AO ADM SS Electrolyte Balance 12.0 mEq/L Invalid Interpretation Code 4.0 - 15.0 mEq/L AO ADM SS Eosinophil, Absolute 0.2 103/mcL Invalid Interpretation Code 0.0 - 0.4 10^3/mcL AO Workflow SS Eosinophils/100 WBC (Bld) 1.4 % Invalid Interpretation Code 0.0 - 7.0 % AO Workflow SS Erythrocyte distribution width (RBC) [Ratio] 14.7 % Invalid Interpretation Code 11.5 - 14.5 % AO Workflow SS Globulin 5.2 G/dL Invalid Interpretation Code AO ADM SS Glucose [Mass/Vol] 173 mg/dL Invalid Interpretation Code 70 - 105 mg/dL AO ADM SS Glucose Test strip (U) [Mass/Vol] >=1000 mg/dL Invalid Interpretation Code Negativemg /dL AO Auto Urine SS Hematocrit (Bld) [Volume fraction] 38.9 % Invalid Interpretation Code 37.0 - 47.0 % AO Workflow SS Hemoglobin (Bld) [Mass/Vol] 13.1 G/dL Invalid Interpretation Code 12.0 - 16.0 G/dL AO Workflow SS Hemoglobin Auto test strip (U) [Mass/Vol] Trace *ABN* (02/15/22 6:37 PM) Invalid Interpretation Code Negative AO Auto Urine SS Ketones Ql (U) Trace mg/dL Invalid Interpretation Code Negativemg /dL AO Auto Urine SS Lipase [Catalytic activity/Vol] 122 U/L Invalid Interpretation Code 73 - 393 U/L AO ADM SS Lymphocyte, Absolute 3.0 103/mcL Invalid Interpretation Code 0.8 - 3.9 10^3/mcL AO Workflow SS Lymphocytes/100 WBC (Bld) 19.7 % Invalid Interpretation Code 10.0 - 50.0 % AO Workflow SS MCH (RBC) [Entitic mass] 28.7 pg Invalid Interpretation Code 27.0 - 31.2 pg AO Workflow SS MCHC 33.6 G/dL Invalid Interpretation Code 33.0 - 37.0 G/dL AO Workflow SS MCV (RBC) [Entitic vol] 85.2 fL Invalid Interpretation Code 80.0 - 94.0 fL AO Workflow SS Monocyte distribution width Auto (Bld) [Entitic vol] 20.48 Invalid Interpretation Code 0.00 - 20.00 AO Workflow SS Comment on above: Result Comment: For adults in ED, MDW>20.0 may be associated with a higher risk of sepsis during the first 12hrs of hospital admission Monocyte, Absolute 1.2 103/mcL Invalid Interpretation Code 0.2 - 1.0 10^3/mcL AO Workflow SS Monocytes/100 WBC (Bld) 7.8 % Invalid Interpretation Code 1.7 - 13.0 % AO Workflow SS Neutrophil, Absolute 10.7 103/mcL Invalid Interpretation Code 2.9 - 6.2 10^3/mcL AO Workflow SS Neutrophils/100 WBC (Bld) 69.9 % Invalid Interpretation Code 37.0 - 80.0 % AO Workflow SS Platelet mean volume (Bld) [Entitic vol] 8.3 fL Invalid Interpretation Code 7.4 - 10.4 fL AO Workflow SS Platelets (Bld) [#/Vol] 367 103/mcL Invalid Interpretation Code 130 - 400 10^3/mcL AO Workflow SS Potassium [Moles/Vol] 4.1 mmol/L Invalid Interpretation Code 3.5 - 5.1 mmol/L AO ADM SS Protein [Mass/Vol] 9.1 G/dL Invalid Interpretation Code 6.4 - 8.2 G/dL AO ADM SS RBC (Bld) [#/Vol] 4.56 106/mcL Invalid Interpretation Code 4.20 - 5.40 10^6/mcL AO Workflow SS Sodium [Moles/Vol] 136 mmol/L Invalid Interpretation Code 136 - 145 mmol/L AO ADM SS UA Leuk Est Small *ABN* (02/15/22 6:37 PM) Invalid Interpretation Code Negative AO Auto Urine SS UA Nitrite Positive *ABN* (02/15/22 6:37 PM) Invalid Interpretation Code Negative AO Auto Urine SS UA pH 6.5 (02/15/22 6:37 PM) Invalid Interpretation Code 5.0 - 8.0 AO Auto Urine SS UA Protein 100 mg/dL Invalid Interpretation Code Negativemg /dL AO Auto Urine SS UA RBC 0-5 /HPF Invalid Interpretation Code None Seen/HPF AO Auto Urine SS UA Spec Grav 1.025 (02/15/22 6:37 PM) Invalid Interpretation Code 1.015-1.02 5 AO Auto Urine SS UA Specimen Type Catheter (02/15/22 6:37 PM) Invalid Interpretation Code AO Auto Urine SS UA Squam Epithelial 15-25 /HPF Invalid Interpretation Code None Seen/HPF AO Auto Urine SS UA Urobilinogen 0.2 E.U./dL Invalid Interpretation Code 0.2-1.0E.U ./dL AO Auto Urine SS Urea nitrogen [Mass/Vol] 13 mg/dL Invalid Interpretation Code 7 - 18 mg/dL AO ADM SS Urea nitrogen/Creatinine [Mass ratio] 13 ratio Invalid Interpretation Code 7 - 27 ratio AO ADM SS WBC (Bld) [#/Vol] 15.3 103/mcL Invalid Interpretation Code 4.6 - 10.8 10^3/mcL AO Workflow SS WBC LM.HPF (Urine sed) [#/Area] LOADED /HPF Invalid Interpretation Code None Seen/HPF AO Auto Urine SS LABORATORYOrdered By: SYSTEM SYSTEM on 02-15-2022 GFR 74 ml/min/1.73sqm Invalid Interpretation Code AO Chemistry S GFR Non- 61 ml/min/1.73sqm Invalid Interpretation Code AO Chemistry S US THYROID/PARATHYROIDon [facility] HBA1C (OUTSIDE)on 01-13-2022 HbA1c (Bld) [Mass fraction] 8.2 % [facility] ANGIE SCREENINGon 01-12-2022 [facility] Absolute lymphocyte counton 11-26-2021 Lymphocytes Auto (Unsp spec) [#/Vol] 1.99 10*3/uL 0.83-4.51 [facility] Work Phone: Basophil percentageon 2021 Basophils/100 WBC (Bld) 0.4 % 0-1 [facility] Work Phone: [phone] Bilirubin [Mass/Vol] 0.40 mg/dL 0.20-1.00 [facility] Work Phone: Comment on above: For patients on eltr ombopag therapy, use of Dimension [place] TBIL is not recommended. Chloride [Moles/Vol] 104 mmol/L 98-107 [facility] Work Phone: Eosinophils/100 WBC (Bld) 0.6 % 0-5 [facility] Work Phone: [phone] Glucose [Mass/Vol] 155 mg/dL 74-106 [facility] Work Phone: [phone] Comment on above: Fasting Glucose resu lt greater than or equal to 126 mg/dL suggests DIABETES MELLITUS per A.D.A. criteria. Neutrophils (Bld) [#/Vol] 10.3 10*3/uL 2.0-7.7 [facility] Work Phone: [phone] Neutrophils/100 WBC (Bld) 74.1 % 47-70 [facility] Work Phone: [phone] Potassium [Moles/Vol] 3.9 mmol/L 3.5-5.1 [facility] Work Phone: Protein [Mass/Vol] 8.2 g/dL 6.4-8.2 [facility] Work Phone: Sodium [Moles/Vol] 136 mmol/L 136-145 [facility] Work Phone: WBC (Bld) [#/Vol] 13.9 10*3/uL 4.4-11.0 [facility] Work Phone: Blood erythrocytes count (nu mber/volume)on 11-26-2021 RBC (Bld) [#/Vol] 4.17 10*6/uL 4.2-5.4 [facility] Work Phone: Blood hemoglobin measurement (mass/volume)on 11-26-2021 Hemoglobin (Bld) [Mass/Vol] 12.3 g/dL 12.0-15.0 [facility] Work Phone: Blood lymphocytes/100 leukoc yteson 11-26-2021 Lymphocytes/100 WBC (Bld) 14.3 % 19-41 [facility] Work Phone: Blood monocytes/100 leukocyt eson 11-26-2021 Monocytes/100 WBC (Bld) 9.7 % 0-10 [facility] Work Phone: Blood platelet mean volumeon 11-26-2021 Platelet mean volume (Bld) [Entitic vol] 11.0 fL 6.2-12.0 [facility] Work Phone: Determination of erythrocyte mean corpuscular volume (MCV)on 11-26-2021 MCV (RBC) [Entitic vol] 89.0 fL 81-99 [facility] Work Phone: Hematocrit Auto (Bld) [Volum e fraction]on 11-26-2021 Hematocrit (Bld) [Volume fraction] 37.1 % 37-47 [facility] Work Phone: Laboratory - Chemistry and C hemistry - challengeon 11-26-2021 ALP [Catalytic activity/Vol] 86 U/L 45-117 [facility] Work Phone: ALT [Catalytic activity/Vol] 29 U/L 13-56 [facility] Work Phone: CO2 [Moles/Vol] 21.0 mmol/L 21.0-32.0 [facility] Work Phone: Globulin (S) [Mass/Vol] 4.8 g/dL 2.2-4.2 [facility] Work Phone: Lipase [Catalytic activity/Vol] 91 U/L 73-393 [facility] Work Phone: Urea nitrogen/Creatinine [Mass ratio] 9.9 mg/mg 10-20 [facility] Work Phone: Laboratory - Hematology and Cell countson 11-26-2021 Erythrocyte distribution width (RBC) [Entitic vol] 42.3 fL 35.1-43.9 [facility] Work Phone: Erythrocyte distribution width (RBC) [Ratio] 12.9 % 11.6-14.6 [facility] Work Phone: Immature granulocytes/100 WBC (Bld) 0.900 % 0.0-0.9 [facility] Work Phone: Comment on above: IG% - Immature Granu locytes (promyelocytes, myelocytes and metamyelocytes) > 1% indicates that a LEFT SHIFT is Present. MCH (RBC) [Entitic mass] 29.5 pg 27.0-32.0 [facility] Work Phone: Nucleated RBC/100 WBC (Bld) [Ratio] 0 % 0-5 [facility] Work Phone: MCHC Auto (RBC) [Mass/Vol]on 11-26-2021 MCHC (RBC) [Mass/Vol] 33.2 g/dL 32-36 [facility] Work Phone: No Panel Informationon 11-26 Estimated Creatinine Clearance Calc 22.30 ml/min [facility] Work Phone: Estimated GFR (MDRD) Amer 27 mL/min >60 [facility] Work Phone: Comment on above: GFR Calc Estimated GFR (MDRD) Non-Af Amer 22 mL/min >60 [facility] Work Phone: Comment on above: Non- GFR Calc Platelets bldon 11-26-2021 Platelets (Bld) [#/Vol] 272 10*3/uL 150-450 [facility] Work Phone: Serum or plasma albumin thi urement (mass/volume)on 11-26-2021 Albumin [Mass/Vol] 3.4 g/dL 3.2-5.0 [facility] Work Phone: Serum or plasma albumin/glob ulin mass ratioon 11-26-2021 Albumin/Globulin [Mass ratio] 0.7 {ratio} 0.9-2.4 [facility] Work Phone: Serum or plasma calcium thi urement (mass/volume)on 11-26-2021 Calcium [Mass/Vol] 9.4 mg/dL 8.5-10.1 [facility] Work Phone: Serum or plasma creatinine m easurement (mass/volume)on 11-26-2021 Creatinine [Mass/Vol] 2.53 mg/dL 0.55-1.02 [facility] Work Phone: Comment on above: The validity of the calculated GFR & GFRAA in patients over 70 years has not been determined. Clinical correlation is essential. Serum or plasma urea nitroge n measurement (mass/volume)on 11-26-2021 Urea nitrogen [Mass/Vol] 25 mg/dL 7-18 [facility] Work Phone: Thin prep Papanicolaou smear with manual screeningon 11-26-2021 Thin prep Papanicolaou smear with manual screening 16 U/L 15-37 [facility] Work Phone: Thin prep Papanicolaou smear with manual screening 11 5-15 [facility] Work Phone: Absolute lymphocyte counton 11-22-2021 Lymphocytes Auto (Unsp spec) [#/Vol] 2.92 10*3/uL 0.83-4.51 [facility] Work Phone: Basophil percentageon 2021 Basophils/100 WBC (Bld) 0.7 % 0-1 [facility] Work Phone: Chloride [Moles/Vol] 110 mmol/L 98-107 [facility] Work Phone: [phone] Eosinophils/100 WBC (Bld) 2.6 % 0-5 [facility] Work Phone: Glucose [Mass/Vol] 75 mg/dL 74-106 [facility] Work Phone: [phone] Neutrophils (Bld) [#/Vol] 5.9 10*3/uL 2.0-7.7 [facility] Work Phone: [phone] Neutrophils/100 WBC (Bld) 55.8 % 47-70 [facility] Work Phone: [phone] Potassium [Moles/Vol] 3.7 mmol/L 3.5-5.1 [facility] Work Phone: Comment on above: Slight Hemolysis, Re sult may be falsely increased. Sodium [Moles/Vol] 141 mmol/L 136-145 [facility] Work Phone: [phone] WBC (Bld) [#/Vol] 10.5 10*3/uL 4.4-11.0 [facility] Work Phone: Blood erythrocytes count (nu mber/volume)on 11-22-2021 RBC (Bld) [#/Vol] 3.77 10*6/uL 4.2-5.4 [facility] Work Phone: Blood hemoglobin measurement (mass/volume)on 11-22-2021 Hemoglobin (Bld) [Mass/Vol] 11.1 g/dL 12.0-15.0 [facility] Work Phone: [phone] Blood lymphocytes/100 leukoc yteson 11-22-2021 Lymphocytes/100 WBC (Bld) 27.8 % 19-41 [facility] Work Phone: Blood monocytes/100 leukocyt eson 11-22-2021 Monocytes/100 WBC (Bld) 12.2 % 0-10 [facility] Work Phone: Blood platelet mean volumeon 11-22-2021 Platelet mean volume (Bld) [Entitic vol] 10.4 fL 6.2-12.0 [facility] Work Phone: Determination of erythrocyte mean corpuscular volume (MCV)on 11-22-2021 MCV (RBC) [Entitic vol] 90.2 fL 81-99 [facility] Work Phone: Hematocrit Auto (Bld) [Volum e fraction]on 11-22-2021 Hematocrit (Bld) [Volume fraction] 34.0 % 37-47 [facility] Work Phone: Laboratory - Chemistry and C hemistry - challengeon 11-22-2021 CO2 [Moles/Vol] 24.0 mmol/L 21.0-32.0 [facility] Work Phone: Urea nitrogen/Creatinine [Mass ratio] 10.0 mg/mg 10-20 [facility] Work Phone: Laboratory - Hematology and Cell countson 11-22-2021 Erythrocyte distribution width (RBC) [Entitic vol] 44.0 fL 35.1-43.9 [facility] Work Phone: Erythrocyte distribution width (RBC) [Ratio] 13.3 % 11.6-14.6 [facility] Work Phone: Immature granulocytes/100 WBC (Bld) 0.900 % 0.0-0.9 [facility] Work Phone: Comment on above: IG% - Immature Granu locytes (promyelocytes, myelocytes and metamyelocytes) > 1% indicates that a LEFT SHIFT is Present. MCH (RBC) [Entitic mass] 29.4 pg 27.0-32.0 [facility] Work Phone: Nucleated RBC/100 WBC (Bld) [Ratio] 0 % 0-5 [facility] Work Phone: MCHC Auto (RBC) [Mass/Vol]on 11-22-2021 MCHC (RBC) [Mass/Vol] 32.6 g/dL 32-36 [facility] Work Phone: No Panel Informationon 11-22 Estimated Creatinine Clearance Calc 47.03 ml/min [facility] Work Phone: Estimated GFR (MDRD) Amer 64 mL/min >60 [facility] Work Phone: Comment on above: GFR Calc Estimated GFR (MDRD) Non-Af Amer 53 mL/min >60 [facility] Work Phone: Comment on above: Non- GFR Calc Platelets bldon 11-22-2021 Platelets (Bld) [#/Vol] 254 10*3/uL 150-450 [facility] Work Phone: Serum or plasma calcium thi urement (mass/volume)on 11-22-2021 Calcium [Mass/Vol] 8.4 mg/dL 8.5-10.1 [facility] Work Phone: Serum or plasma creatinine m easurement (mass/volume)on 11-22-2021 Creatinine [Mass/Vol] 1.20 mg/dL 0.55-1.02 [facility] Work Phone: Comment on above: The validity of the calculated GFR & GFRAA in patients over 70 years has not been determined. Clinical correlation is essential. Serum or plasma urea nitroge n measurement (mass/volume)on 11-22-2021 Urea nitrogen [Mass/Vol] 12 mg/dL 7-18 [facility] Work Phone: Thin prep Papanicolaou smear with manual screeningon 11-22-2021 Thin prep Papanicolaou smear with manual screening 7 5-15 [facility] Work Phone: Glucose Glucometer (BldC) [M ass/Vol]on 11-21-2021 Glucose [Mass/Vol] 86 mg/dL 74-106 [facility] Work Phone: Comment on above: MANAGEMENT OF PATIEN T CARE PER NURSING PROTOCOL Absolute lymphocyte counton 11-20-2021 Lymphocytes Auto (Unsp spec) [#/Vol] 1.68 10*3/uL 0.83-4.51 [facility] Work Phone: Basophil percentageon 11-20- 2021 Basophil percentage 5-10 SEEN /hpf 0-5 [facility] Work Phone: [phone] Basophils/100 WBC (Bld) 0.4 % 0-1 [facility] Work Phone: Bilirubin [Mass/Vol] 0.50 mg/dL 0.20-1.00 [facility] Work Phone: Comment on above: For patients on eltr ombopag therapy, use of Dimension [place] TBIL is not recommended. Chloride [Moles/Vol] 105 mmol/L 98-107 [facility] Work Phone: Eosinophils/100 WBC (Bld) 0.7 % 0-5 [facility] Work Phone: Glucose [Mass/Vol] 208 mg/dL 74-106 [facility] Work Phone: Comment on above: Glucose result great er than or equal to 200 mg/dLsuggests DIABETES MELLITUS per A.D.A. criteria. Lactate [Moles/Vol] 1.9 mmol/L 0.4-2.0 [facility] Work Phone: Neutrophils (Bld) [#/Vol] 14.8 10*3/uL 2.0-7.7 [facility] Work Phone: Neutrophils/100 WBC (Bld) 81.7 % 47-70 [facility] Work Phone: Potassium [Moles/Vol] 3.7 mmol/L 3.5-5.1 [facility] Work Phone: Protein [Mass/Vol] 8.0 g/dL 6.4-8.2 [facility] Work Phone: Sodium [Moles/Vol] 136 mmol/L 136-145 [facility] Work Phone: WBC (Bld) [#/Vol] 18.1 10*3/uL 4.4-11.0 [facility] Work Phone: Bilirubin Test strip Ql (U)o n 11-20-2021 Bilirubin Ql (U) Negative Negative [facility] Work Phone: Blood erythrocytes count (nu mber/volume)on 11-20-2021 RBC (Bld) [#/Vol] 4.31 10*6/uL 4.2-5.4 [facility] Work Phone: Blood hemoglobin measurement (mass/volume)on 11-20-2021 Hemoglobin (Bld) [Mass/Vol] 12.8 g/dL 12.0-15.0 [facility] Work Phone: Blood lymphocytes/100 leukoc yteson 11-20-2021 Lymphocytes/100 WBC (Bld) 9.3 % 19-41 [facility] Work Phone: Blood monocytes/100 leukocyt eson 11-20-2021 Monocytes/100 WBC (Bld) 7.1 % 0-10 [facility] Work Phone: Blood platelet mean volumeon 11-20-2021 Platelet mean volume (Bld) [Entitic vol] 11.0 fL 6.2-12.0 [facility] Work Phone: Determination of erythrocyte mean corpuscular volume (MCV)on 11-20-2021 MCV (RBC) [Entitic vol] 89.1 fL 81-99 [facility] Work Phone: Erythrocyte sedimentation ra chris 11-20-2021 ESR (Bld) [Velocity] 61 mm[facility]h 0-[facility] Work Phone: Hematocrit Auto (Bld) [Volum e fraction]on 11-20-2021 Hematocrit (Bld) [Volume fraction] 38.4 % 37-47 [facility] Work Phone: INR in Blood by Coagulation assayon 11-20-2021 INR Coag (Bld) [Relative time] 0.9 {INR} [facility] Work Phone: [phone] Ketones Test strip Ql (U)on 11-20-2021 Ketones Ql (U) 5 mg/dl Negative [facility] Work Phone: Laboratory - Chemistry and C hemistry - challengeon 11-20-2021 ALP [Catalytic activity/Vol] 100 U/L 45-117 [facility] Work Phone: ALT [Catalytic activity/Vol] 51 U/L 13-56 [facility] Work Phone: CO2 [Moles/Vol] 20.0 mmol/L 21.0-32.0 [facility] Work Phone: Globulin (S) [Mass/Vol] 4.3 g/dL 2.2-4.2 [facility] Work Phone: Urea nitrogen/Creatinine [Mass ratio] 10.3 mg/mg 10-20 [facility] Work Phone: Laboratory - Coagulationon 0 11-20-2021 aPTT Coag (Bld) [Time] 29.0 s 24.1-36.2 [facility] Work Phone: PT Coag (PPP) [Time] 12.3 s 11.7-14.9 [facility] Work Phone: Laboratory - Hematology and Cell countson 11-20-2021 Erythrocyte distribution width (RBC) [Entitic vol] 41.7 fL 35.1-43.9 [facility] Work Phone: Erythrocyte distribution width (RBC) [Ratio] 12.7 % 11.6-14.6 [facility] Work Phone: Immature granulocytes/100 WBC (Bld) 0.800 % 0.0-0.9 [facility] Work Phone: Comment on above: IG% - Immature Granu locytes (promyelocytes, myelocytes and metamyelocytes) > 1% indicates that a LEFT SHIFT is Present. MCH (RBC) [Entitic mass] 29.7 pg 27.0-32.0 [facility] Work Phone: Nucleated RBC/100 WBC (Bld) [Ratio] 0 % 0-5 [facility] Work Phone: MCHC Auto (RBC) [Mass/Vol]on 11-20-2021 MCHC (RBC) [Mass/Vol] 33.3 g/dL 32-36 [facility] Work Phone: Mucus LM Ql (Urine sed)on Mucus Ql (Urine sed) 0 SEEN /hpf [facility] Work Phone: Nitrite Test strip Ql (U)on 11-20-2021 Nitrite Ql (U) Negative Negative [facility] Work Phone: No Panel Informationon 11-20 Estimated Creatinine Clearance Calc 52.74 ml/min [facility] Work Phone: Estimated GFR (MDRD) Amer 73 mL/min >60 [facility] Work Phone: Comment on above: GFR Calc Estimated GFR (MDRD) Non-Af Amer 60 mL/min >60 [facility] Work Phone: Comment on above: Non- GFR Calc Troponin I High Sensitivity < 3 pg/mL 3.0-54.0 [facility] Work Phone: Comment on above: Please Note: [employer] [place] t Units and Gender Specific Reference Ranges. For more information see Policy Stat Procedure [place] Sensitivity Troponin (TNIH) and attachments. Methicillin-Resist S.aureus DNA PCR Negative Negative [facility] Work Phone: Platelets bldon 11-20-2021 Platelets (Bld) [#/Vol] 319 10*3/uL 150-450 [facility] Work Phone: Protein Test strip Ql (U)on 11-20-2021 Protein Ql (U) 30 mg/dl Negative [facility] Work Phone: Serum or plasma C reactive p rotein measurement (mass/volume)on 11-20-2021 CRP [Mass/Vol] 18.70 mg/L 0.0-3.0 [facility] Work Phone: Comment on above: C-Reactive Protein ( CRP) provides useful information for thediagnosis, therapy and monitoring of inflammatory processesand associated diseases. For the evaluation of Relative Riskfor Cardiovascular Disease, a High Sensitivity CRP (HSCRP)should be ordered. Serum or plasma albumin thi urement (mass/volume)on 11-20-2021 Albumin [Mass/Vol] 3.7 g/dL 3.2-5.0 [facility] Work Phone: Serum or plasma albumin/glob ulin mass ratioon 11-20-2021 Albumin/Globulin [Mass ratio] 0.9 {ratio} 0.9-2.4 [facility] Work Phone: Serum or plasma calcium thi urement (mass/volume)on 11-20-2021 Calcium [Mass/Vol] 9.7 mg/dL 8.5-10.1 [facility] Work Phone: Serum or plasma creatinine m easurement (mass/volume)on 11-20-2021 Creatinine [Mass/Vol] 1.07 mg/dL 0.55-1.02 [facility] Work Phone: Comment on above: The validity of the calculated GFR & GFRAA in patients over 70 years has not been determined. Clinical correlation is essential. Serum or plasma urea nitroge n measurement (mass/volume)on 11-20-2021 Urea nitrogen [Mass/Vol] 11 mg/dL 7-18 [facility] Work Phone: Squamous epithelial cells de tection in urine sediment by light microscopyon 11-20-2021 Epithelial cells.squamous LM Ql (Urine sed) 0-5 SEEN /hpf 5-10 [facility] Work Phone: Staphylococcus aureus DNA de tection by probe and target amplification methodon 11-20-2021 S. aureus DNA MALIK+probe Ql (Unsp spec) Negative Negative [facility] Work Phone: Thin prep Papanicolaou smear with manual screeningon 11-20-2021 Thin prep Papanicolaou smear with manual screening 30 U/L 15-37 [facility] Work Phone: Thin prep Papanicolaou smear with manual screening 11 5-15 [facility] Work Phone: Urine blood detectionon 06-2 RBC Ql (U) 10 /ul Negative [facility] Work Phone: RBC Ql (U) 0-5 SEEN /hpf 0-5 [facility] Work Phone: Urine clarityon 11-20-2021 Clarity (U) Sl Cloudy Clear [facility] Work Phone: Urine color determinationon 11-20-2021 Color (U) Yellow Yellow [facility] Work Phone: Urine glucose detectionon Glucose Ql (U) Normal mg/dl Normal [facility] Work Phone: Urine leukocyte esterase det ection by dipstickon 11-20-2021 Leukocyte esterase Test strip Ql (U) 100 /ul Negative [facility] Work Phone: Urine pHon 11-20-2021 pH (U) 7.0 [pH] 5.0 - 8.0 [facility] Work Phone: Urine sediment bacteria coun t by microscopy (number/high power field)on 11-20-2021 Bacteria LM.HPF (Urine sed) [#/Area] 1 /[HPF] None Seen [facility] Work Phone: Urine specific gravity measu rementon 11-20-2021 Specific gravity (U) [Rel density] 1.005 1.002-1.03 0 [facility] Work Phone: Urobilinogen Auto test strip Ql (U)on 11-20-2021 Urobilinogen Ql (U) Normal mg/dl Normal [facility] Work Phone: Absolute lymphocyte counton 11-15-2021 Lymphocytes Auto (Unsp spec) [#/Vol] 2.72 10*3/uL 0.83-4.51 [facility] Work Phone: Basophil percentageon 2021 Basophil percentage >100 SEEN /hpf 0-5 [facility] Work Phone: [phone] Basophils/100 WBC (Bld) 0.5 % 0-1 [facility] Work Phone: [phone] Bilirubin [Mass/Vol] 0.30 mg/dL 0.20-1.00 [facility] Work Phone: Comment on above: For patients on eltr ombopag therapy, use of Dimension [place] TBIL is not recommended. Chloride [Moles/Vol] 106 mmol/L 98-107 [facility] Work Phone: Eosinophils/100 WBC (Bld) 1.9 % 0-5 [facility] Work Phone: Glucose [Mass/Vol] 238 mg/dL 74-106 [facility] Work Phone: Comment on above: Glucose result great er than or equal to 200 mg/dLsuggests DIABETES MELLITUS per A.D.A. criteria. Lactate [Moles/Vol] 1.4 mmol/L 0.4-2.0 [facility]: [phone] Neutrophils (Bld) [#/Vol] 5.4 10*3/uL 2.0-7.7 [facility] Work Phone: [phone] Neutrophils/100 WBC (Bld) 57.7 % 47-70 [facility] Work Phone: [phone] Potassium [Moles/Vol] 3.7 mmol/L 3.5-5.1 [facility]: [phone] Protein [Mass/Vol] 7.4 g/dL 6.4-8.2 [facility] Work Phone: [phone] Sodium [Moles/Vol] 137 mmol/L 136-145 [facility] Work Phone: [phone] WBC (Bld) [#/Vol] 9.4 10*3/uL 4.4-11.0 [facility]: Bilirubin Test strip Ql (U)o n 11-15-2021 Bilirubin Ql (U) Negative Negative [facility] Work Phone: Blood erythrocytes count (nu mber/volume)on 11-15-2021 RBC (Bld) [#/Vol] 4.00 10*6/uL 4.2-5.4 [facility] Work [facility]: Blood hemoglobin measurement (mass/volume)on 11-15-2021 Hemoglobin (Bld) [Mass/Vol] 11.8 g/dL 12.0-15.0 [facility] Work Phone: Blood lymphocytes/100 leukoc yteson 11-15-2021 Lymphocytes/100 WBC (Bld) 29.1 % 19-41 [facility] Work Phone: Blood monocytes/100 leukocyt eson 11-15-2021 Monocytes/100 WBC (Bld) 10.4 % 0-10 [facility] Work Phone: Blood platelet mean volumeon 11-15-2021 Platelet mean volume (Bld) [Entitic vol] 10.6 fL 6.2-12.0 [facility] Work Phone: Determination of erythrocyte mean corpuscular volume (MCV)on 11-15-2021 MCV (RBC) [Entitic vol] 89.3 fL 81-99 [facility] Work Phone: Erythrocyte sedimentation ra chris 11-15-2021 ESR (Bld) [Velocity] 33 mm/h 0-[facility]: Hematocrit Auto (Bld) [Volum e fraction]on 11-15-2021 Hematocrit (Bld) [Volume fraction] 35.7 % 37-47 [facility] Work Phone: Hyaline casts LM.LPF (Urine sed) [#/Area]on 11-15-2021 Hyaline casts (Urine sed) [#/Area] 0 /[LPF] 0-5 [facility] Work Phone: Ketones Test strip Ql (U)on 11-15-2021 Ketones Ql (U) Negative Negative [facility] Work Phone: Laboratory - Chemistry and C hemistry - challengeon 11-15-2021 HCG ( test) Ql (U) Negative [facility] Work Phone: Comment on above: Very dilute urine sp ecimens, as indicated by a low specificgravity, may not contain event marketing representative levels of hCG. If is still suspected, a first morning urinespecimen should be collected 48 hours later and tested. ALP [Catalytic activity/Vol] 87 U/L 45-117 [facility] Work Phone: ALT [Catalytic activity/Vol] 44 U/L 13-56 [facility] Work Phone: CO2 [Moles/Vol] 26.0 mmol/L 21.0-32.0 [facility] Work Phone: [phone] Globulin (S) [Mass/Vol] 4.0 g/dL 2.2-4.2 [facility] Work Phone: Urea nitrogen/Creatinine [Mass ratio] 12.7 mg/mg 10-20 [facility] Work Phone: Laboratory - Hematology and Cell countson 11-15-2021 Erythrocyte distribution width (RBC) [Entitic vol] 42.5 fL 35.1-43.9 [facility] Work Phone: Erythrocyte distribution width (RBC) [Ratio] 13.0 % 11.6-14.6 [facility] Work Phone: Immature granulocytes/100 WBC (Bld) 0.400 % 0.0-0.9 [facility] Work Phone: Comment on above: IG% - Immature Granu locytes (promyelocytes, myelocytes and metamyelocytes) > 1% indicates that a LEFT SHIFT is Present. MCH (RBC) [Entitic mass] 29.5 pg 27.0-32.0 [facility] Work Phone: Nucleated RBC/100 WBC (Bld) [Ratio] 0 % 0-5 [facility] Work Phone: MCHC Auto (RBC) [Mass/Vol]on 11-15-2021 MCHC (RBC) [Mass/Vol] 33.1 g/dL 32-36 [facility] Work Phone: Mucus LM Ql (Urine sed)on Mucus Ql (Urine sed) 0 SEEN /hpf [facility] Work Phone: Nitrite Test strip Ql (U)on 11-15-2021 Nitrite Ql (U) Positive Negative [facility] Work Phone: No Panel Informationon 11-15 Estimated Creatinine Clearance Calc 55.32 ml/min [facility] Work Phone: Estimated GFR (MDRD) Amer 77 mL/min >60 [facility] Work Phone: Comment on above: GFR Calc Estimated GFR (MDRD) Non-Af Amer 64 mL/min >60 [facility] Work Phone: Comment on above: Non- GFR Calc Platelets bldon 11-15-2021 Platelets (Bld) [#/Vol] 246 10*3/uL 150-450 [facility] Work Phone: Protein Test strip Ql (U)on 11-15-2021 Protein Ql (U) 100 mg/dl Negative [facility] Work Phone: Serum or plasma C reactive p rotein measurement (mass/volume)on 11-15-2021 CRP [Mass/Vol] 8.79 mg/L 0.0-3.0 [facility] Work Phone: Comment on above: C-Reactive Protein ( CRP) provides useful information for thediagnosis, therapy and monitoring of inflammatory processesand associated diseases. For the evaluation of Relative Riskfor Cardiovascular Disease, a High Sensitivity CRP (HSCRP)should be ordered. Serum or plasma albumin thi urement (mass/volume)on 11-15-2021 Albumin [Mass/Vol] 3.4 g/dL 3.2-5.0 [facility] Work Phone: Serum or plasma albumin/glob ulin mass ratioon 11-15-2021 Albumin/Globulin [Mass ratio] 0.8 {ratio} 0.9-2.4 [facility] Work Phone: Serum or plasma calcium thi urement (mass/volume)on 11-15-2021 Calcium [Mass/Vol] 9.1 mg/dL 8.5-10.1 [facility] Work Phone: Serum or plasma creatinine m easurement (mass/volume)on 11-15-2021 Creatinine [Mass/Vol] 1.02 mg/dL 0.55-1.02 [facility] Work Phone: Comment on above: The validity of the calculated GFR & GFRAA in patients over 70 years has not been determined. Clinical correlation is essential. Serum or plasma urea nitroge n measurement (mass/volume)on 11-15-2021 Urea nitrogen [Mass/Vol] 13 mg/dL 7-18 [facility] Work Phone: Squamous epithelial cells de tection in urine sediment by light microscopyon 11-15-2021 Epithelial cells.squamous LM Ql (Urine sed) 0-5 SEEN /hpf 5-10 [facility] Work Phone: Thin prep Papanicolaou smear with manual screeningon 11-15-2021 Thin prep Papanicolaou smear with manual screening 24 U/L 15-37 [facility] Work Phone: Thin prep Papanicolaou smear with manual screening 5 5-15 [facility] Work Phone: Urine blood detectionon - RBC Ql (U) 150 /ul Negative [facility] Work Phone: RBC Ql (U) 10-25 SEEN /hpf 0-5 [facility] Work Phone: Urine clarityon 11-15-2021 Clarity (U) Cloudy Clear [facility] Work Phone: Urine color determinationon 11-15-2021 Color (U) Yellow Yellow [facility] Work Phone: Urine glucose detectionon Glucose Ql (U) 250 mg/dl Normal [facility] Work Phone: Urine leukocyte esterase det ection by dipstickon 11-15-2021 Leukocyte esterase Test strip Ql (U) 500 /ul Negative [facility] Work Phone: Urine pHon 11-15-2021 pH (U) 6.0 [pH] 5.0 - 8.0 [facility] Work Phone: Urine sediment bacteria coun t by microscopy (number/high power field)on 11-15-2021 Bacteria LM.HPF (Urine sed) [#/Area] 4 /[HPF] None Seen [facility] Work Phone: Urine specific gravity measu rementon 11-15-2021 Specific gravity (U) [Rel density] 1.015 1.002-1.03 0 [facility] Work Phone: Urobilinogen Auto test strip Ql (U)on 11-15-2021 Urobilinogen Ql (U) Normal mg/dl Normal [facility] Work Phone: Absolute lymphocyte counton 11-05-2021 Lymphocytes Auto (Unsp spec) [#/Vol] 2.79 10*3/uL 0.83-4.51 [facility] Work Phone: Basophil percentageon 2021 Basophil percentage 5-10 SEEN /hpf 0-5 [facility] Work Phone: Basophils/100 WBC (Bld) 0.6 % 0-1 [facility] Work Phone: Chloride [Moles/Vol] 109 mmol/L 98-107 [facility] Work Phone: Eosinophils/100 WBC (Bld) 6.8 % 0-5 [facility] Work Phone: Glucose [Mass/Vol] 172 mg/dL 74-106 [facility] Work Phone: Comment on above: Fasting Glucose resu lt greater than or equal to 126 mg/dL suggests DIABETES MELLITUS per A.D.A. criteria. Neutrophils (Bld) [#/Vol] 5.4 10*3/uL 2.0-7.7 [facility] Work Phone: Neutrophils/100 WBC (Bld) 53.1 % 47-70 [facility] Work Phone: Potassium [Moles/Vol] 3.6 mmol/L 3.5-5.1 [facility] Work Phone: Sodium [Moles/Vol] 140 mmol/L 136-145 [facility] Work Phone: WBC (Bld) [#/Vol] 10.2 10*3/uL 4.4-11.0 [facility] Work Phone: Bilirubin Test strip Ql (U)o n 11-05-2021 Bilirubin Ql (U) Negative Negative [facility] Work Phone: Blood erythrocytes count (nu mber/volume)on 11-05-2021 RBC (Bld) [#/Vol] 3.99 10*6/uL 4.2-5.4 [facility] Work Phone: Blood hemoglobin measurement (mass/volume)on 11-05-2021 Hemoglobin (Bld) [Mass/Vol] 12.0 g/dL 12.0-15.0 [facility] Work Phone: Blood lymphocytes/100 leukoc yteson 11-05-2021 Lymphocytes/100 WBC (Bld) 27.3 % 19-41 [facility] Work Phone: Blood monocytes/100 leukocyt eson 11-05-2021 Monocytes/100 WBC (Bld) 11.8 % 0-10 [facility] Work Phone: Blood platelet mean volumeon 11-05-2021 Platelet mean volume (Bld) [Entitic vol] 11.4 fL 6.2-12.0 [facility] Work Phone: Determination of erythrocyte mean corpuscular volume (MCV)on 11-05-2021 MCV (RBC) [Entitic vol] 89.7 fL 81-99 [facility] Work Phone: Hematocrit Auto (Bld) [Volum e fraction]on 11-05-2021 Hematocrit (Bld) [Volume fraction] 35.8 % 37-47 [facility] Work Phone: Ketones Test strip Ql (U)on 11-05-2021 Ketones Ql (U) Negative Negative [facility] Work Phone: Laboratory - Chemistry and C hemistry - challengeon 11-05-2021 HCG ( test) Ql (U) Negative [facility] Work Phone: Comment on above: Very dilute urine sp ecimens, as indicated by a low specificgravity, may not contain event marketing representative levels of hCG. If is still suspected, a first morning urinespecimen should be collected 48 hours later and tested. CO2 [Moles/Vol] 26.0 mmol/L 21.0-32.0 [facility] Work Phone: Urea nitrogen/Creatinine [Mass ratio] 8.3 mg/mg 10-20 [facility] Work Phone: Laboratory - Hematology and Cell countson 11-05-2021 Erythrocyte distribution width (RBC) [Entitic vol] 43.0 fL 35.1-43.9 [facility] Work Phone: Erythrocyte distribution width (RBC) [Ratio] 13.1 % 11.6-14.6 [facility] Work Phone: Immature granulocytes/100 WBC (Bld) 0.400 % 0.0-0.9 [facility] Work Phone: Comment on above: IG% - Immature Granu locytes (promyelocytes, myelocytes and metamyelocytes) > 1% indicates that a LEFT SHIFT is Present. MCH (RBC) [Entitic mass] 30.1 pg 27.0-32.0 [facility] Work Phone: Nucleated RBC/100 WBC (Bld) [Ratio] 0 % 0-5 [facility] Work Phone: MCHC Auto (RBC) [Mass/Vol]on 11-05-2021 MCHC (RBC) [Mass/Vol] 33.5 g/dL 32-36 [facility] Work Phone: Mucus LM Ql (Urine sed)on Mucus Ql (Urine sed) 0 SEEN /hpf [facility] Work Phone: Nitrite Test strip Ql (U)on 11-05-2021 Nitrite Ql (U) Negative Negative [facility] Work Phone: No Panel Informationon 11-05 Estimated Creatinine Clearance Calc 58.76 ml/min [facility] Work Phone: Estimated GFR (MDRD) Amer 82 mL/min >60 [facility] Work Phone: Comment on above: GFR Calc Estimated GFR (MDRD) Non-Af Amer 68 mL/min >60 [facility] Work Phone: Comment on above: Non- GFR Calc Platelets bldon 11-05-2021 Platelets (Bld) [#/Vol] 212 10*3/uL 150-450 [facility] Work Phone: Protein Test strip Ql (U)on 11-05-2021 Protein Ql (U) Negative Negative [facility] Work Phone: Serum or plasma calcium thi urement (mass/volume)on 11-05-2021 Calcium [Mass/Vol] 9.3 mg/dL 8.5-10.1 [facility] Work Phone: Serum or plasma creatinine m easurement (mass/volume)on 11-05-2021 Creatinine [Mass/Vol] 0.97 mg/dL 0.55-1.02 [facility] Work Phone: Comment on above: The validity of the calculated GFR & GFRAA in patients over 70 years has not been determined. Clinical correlation is essential. Serum or plasma urea nitroge n measurement (mass/volume)on 11-05-2021 Urea nitrogen [Mass/Vol] 8 mg/dL 7-18 [facility] Work Phone: Squamous epithelial cells de tection in urine sediment by light microscopyon 11-05-2021 Epithelial cells.squamous LM Ql (Urine sed) 0 SEEN /hpf 5-10 [facility] Work Phone: Thin prep Papanicolaou smear with manual screeningon 11-05-2021 Thin prep Papanicolaou smear with manual screening 5 - [facility] Work Phone: Urine blood detectionon 10-27 RBC Ql (U) 25 /ul Negative [facility] Work Phone: RBC Ql (U) 0 SEEN /hpf 0-5 [facility] Work Phone: Urine clarityon 11-05-2021 Clarity (U) Sl. Cloudy Clear [facility] Work Phone: Urine color determinationon 11-05-2021 Color (U) Straw Yellow [facility] Work Phone: Urine glucose detectionon Glucose Ql (U) Normal mg/dl Normal [facility] Work Phone: Urine leukocyte esterase det ection by dipstickon 11-05-2021 Leukocyte esterase Test strip Ql (U) 500 /ul Negative [facility] Work Phone: Urine pHon 11-05-2021 pH (U) 6.5 [pH] 5.0 - 8.0 [facility] Work Phone: Urine sediment bacteria coun t by microscopy (number/high power field)on 11-05-2021 Bacteria LM.HPF (Urine sed) [#/Area] 2 /[HPF] None Seen [facility] Work Phone: Urine specific gravity measu rementon 11-05-2021 Specific gravity (U) [Rel density] 1.010 1.002-1.03 0 [facility] Work Phone: [phone] Urobilinogen Auto test strip Ql (U)on 11-05-2021 Urobilinogen Ql (U) Normal mg/dl Normal [facility] Work Phone: [phone] Absolute lymphocyte counton 10-26-2021 Lymphocytes Auto (Unsp spec) [#/Vol] 3.57 10*3/uL 0.83-4.51 [facility] Work Phone: [phone] Basophil percentageon 2021 Basophils/100 WBC (Bld) 0.6 % 0-1 [facility] Work Phone: [phone] Chloride [Moles/Vol] 103 mmol/L 98-107 [facility] Work Phone: [phone] Eosinophils/100 WBC (Bld) 3.1 % 0-5 [facility] Work Phone: [phone] Glucose [Mass/Vol] 69 mg/dL 74-106 [facility] Work Phone: Neutrophils (Bld) [#/Vol] 4.0 10*3/uL 2.0-7.7 [facility] Work Phone: [phone] Neutrophils/100 WBC (Bld) 43.7 % 47-70 [facility] Work Phone: [phone] Potassium [Moles/Vol] 3.4 mmol/L 3.5-5.1 [facility] Work Phone: Sodium [Moles/Vol] 138 mmol/L 136-145 [facility] Work Phone: WBC (Bld) [#/Vol] 9.0 10*3/uL 4.4-11.0 [facility] Work Phone: [phone] Blood erythrocytes count (nu mber/volume)on 10-26-2021 RBC (Bld) [#/Vol] 3.88 10*6/uL 4.2-5.4 [facility]: Blood hemoglobin measurement (mass/volume)on 10-26-2021 Hemoglobin (Bld) [Mass/Vol] 11.5 g/dL 12.0-15.0 [facility] Work Phone: Blood lymphocytes/100 leukoc yteson 10-26-2021 Lymphocytes/100 WBC (Bld) 39.5 % 19-41 [facility] Work Phone: Blood monocytes/100 leukocyt eson 10-26-2021 Monocytes/100 WBC (Bld) 12.8 % 0-10 [facility] Work Phone: Blood platelet mean volumeon 10-26-2021 Platelet mean volume (Bld) [Entitic vol] 11.2 fL 6.2-12.0 [facility] Work Phone: Determination of erythrocyte mean corpuscular volume (MCV)on 10-26-2021 MCV (RBC) [Entitic vol] 92.5 fL 81-99 [facility] Work Phone: Hematocrit Auto (Bld) [Volum e fraction]on 10-26-2021 Hematocrit (Bld) [Volume fraction] 35.9 % 37-47 [facility] Work Phone: Laboratory - Chemistry and C hemistry - challengeon 10-26-2021 CO2 [Moles/Vol] 27.0 mmol/L 21.0-32.0 [facility] Work Phone: Urea nitrogen/Creatinine [Mass ratio] 16.0 mg/mg 10-20 [facility] Work Phone: Laboratory - Hematology and Cell countson 10-26-2021 Erythrocyte distribution width (RBC) [Entitic vol] 44.8 fL 35.1-43.9 [facility] Work Phone: Erythrocyte distribution width (RBC) [Ratio] 13.2 % 11.6-14.6 [facility] Phone: Immature granulocytes/100 WBC (Bld) 0.300 % 0.0-0.9 [facility] Work Phone: Comment on above: IG% - Immature Granu locytes (promyelocytes, myelocytes and metamyelocytes) > 1% indicates that a LEFT SHIFT is Present. MCH (RBC) [Entitic mass] 29.6 pg 27.0-32.0 [facility] Work Phone: Nucleated RBC/100 WBC (Bld) [Ratio] 0 % 0-5 [facility] Work Phone: MCHC Auto (RBC) [Mass/Vol]on 10-26-2021 MCHC (RBC) [Mass/Vol] 32.0 g/dL 32-36 [facility] Work Phone: No Panel Informationon 10-26 Estimated GFR (MDRD) Amer 61 mL/min >60 [facility] Work Phone: Comment on above: GFR Calc Estimated GFR (MDRD) Non-Af Amer 51 mL/min >60 [facility] Work Phone: Comment on above: Non- GFR Calc Platelets bldon 10-26-2021 Platelets (Bld) [#/Vol] 212 10*3/uL 150-450 [facility] Work Phone: Serum or plasma calcium thi urement (mass/volume)on 10-26-2021 Calcium [Mass/Vol] 8.9 mg/dL 8.5-10.1 [facility] Work Phone: Serum or plasma creatinine m easurement (mass/volume)on 10-26-2021 Creatinine [Mass/Vol] 1.25 mg/dL 0.55-1.02 [facility] Work Phone: Comment on above: The validity of the calculated GFR & GFRAA in patients over 70 years has not been determined. Clinical correlation is essential. Serum or plasma urea nitroge n measurement (mass/volume)on 10-26-2021 Urea nitrogen [Mass/Vol] 20 mg/dL 7-18 [facility] Work Phone: [phone] Thin prep Papanicolaou smear with manual screeningon 10-26-2021 Thin prep Papanicolaou smear with manual screening 8 5-15 [facility] Work Phone: [phone] Absolute lymphocyte counton 10-18-2021 Lymphocytes Auto (Unsp spec) [#/Vol] 2.84 10*3/uL 0.83-4.51 [facility] Work Phone: Basophil percentageon 2021 Basophils/100 WBC (Bld) 0.8 % 0-1 [facility] Work Phone: Chloride [Moles/Vol] 108 mmol/L 98-107 [facility] Work [phone] Eosinophils/100 WBC (Bld) 2.0 % 0-5 [facility] Work Phone: [phone] Glucose [Mass/Vol] 87 mg/dL 74-106 [facility] Work Phone: Neutrophils (Bld) [#/Vol] 4.8 10*3/uL 2.0-7.7 [facility] Work Phone: Neutrophils/100 WBC (Bld) 53.9 % 47-70 [facility] Work [phone] Potassium [Moles/Vol] 3.7 mmol/L 3.5-5.1 [facility] Work Phone: Sodium [Moles/Vol] 139 mmol/L 136-145 [facility] Work Phone: WBC (Bld) [#/Vol] 9.0 10*3/uL 4.4-11.0 [facility] Work Phone: Blood erythrocytes count (nu mber/volume)on 10-18-2021 RBC (Bld) [#/Vol] 3.91 10*6/uL 4.2-5.4 [facility] Work Phone: Blood hemoglobin measurement (mass/volume)on 10-18-2021 Hemoglobin (Bld) [Mass/Vol] 11.6 g/dL 12.0-15.0 [facility] Work Phone: Blood lymphocytes/100 leukoc yteson 10-18-2021 Lymphocytes/100 WBC (Bld) 31.7 % 19-41 [facility] Work Phone: Blood monocytes/100 leukocyt eson 10-18-2021 Monocytes/100 WBC (Bld) 11.2 % 0-10 [facility] Work Phone: Blood platelet mean volumeon 10-18-2021 Platelet mean volume (Bld) [Entitic vol] 11.3 fL 6.2-12.0 [facility] Work Phone: Determination of erythrocyte mean corpuscular volume (MCV)on 10-18-2021 MCV (RBC) [Entitic vol] 91.3 fL 81-99 [facility] Work Phone: Hematocrit Auto (Bld) [Volum e fraction]on 10-18-2021 Hematocrit (Bld) [Volume fraction] 35.7 % 37-47 [facility] Work Phone: Laboratory - Chemistry and C hemistry - challengeon 10-18-2021 CO2 [Moles/Vol] 26.0 mmol/L 21.0-32.0 [facility] Work Phone: Urea nitrogen/Creatinine [Mass ratio] 18.8 mg/mg 10-20 [facility] Work Phone: Laboratory - Hematology and Cell countson 10-18-2021 Erythrocyte distribution width (RBC) [Entitic vol] 44.2 fL 35.1-43.9 [facility] Work Phone: Erythrocyte distribution width (RBC) [Ratio] 13.3 % 11.6-14.6 [facility] Work Phone: Immature granulocytes/100 WBC (Bld) 0.400 % 0.0-0.9 [facility] Work Phone: Comment on above: IG% - Immature Granu locytes (promyelocytes, myelocytes and metamyelocytes) > 1% indicates that a LEFT SHIFT is Present. MCH (RBC) [Entitic mass] 29.7 pg 27.0-32.0 [facility] Work Phone: Nucleated RBC/100 WBC (Bld) [Ratio] 0 % 0-5 [facility] Work Phone: MCHC Auto (RBC) [Mass/Vol]on 10-18-2021 MCHC (RBC) [Mass/Vol] 32.5 g/dL 32-36 [facility] Work Phone: No Panel Informationon 10-18 Estimated GFR (MDRD) Amer 83 mL/min >60 [facility] Work Phone: Comment on above: GFR Calc Estimated GFR (MDRD) Non-Af Amer 69 mL/min >60 [facility] Work Phone: Comment on above: Non- GFR Calc Platelets bldon 10-18-2021 Platelets (Bld) [#/Vol] 278 10*3/uL 150-450 [facility] Work Phone: Serum or plasma calcium thi urement (mass/volume)on 10-18-2021 Calcium [Mass/Vol] 9.4 mg/dL 8.5-10.1 [facility] Work Phone: Serum or plasma creatinine m easurement (mass/volume)on 10-18-2021 Creatinine [Mass/Vol] 0.96 mg/dL 0.55-1.02 [facility] Work Phone: Comment on above: The validity of the calculated GFR & GFRAA in patients over 70 years has not been determined. Clinical correlation is essential. Serum or plasma urea nitroge n measurement (mass/volume)on 10-18-2021 Urea nitrogen [Mass/Vol] 18 mg/dL 7-18 [facility] Work Phone: Thin prep Papanicolaou smear with manual screeningon 10-18-2021 Thin prep Papanicolaou smear with manual screening 5 5-15 [facility] Work Phone: [phone] Absolute lymphocyte counton 10-11-2021 Lymphocytes Auto (Unsp spec) [#/Vol] 3.70 10*3/uL 0.83-4.51 [facility] Work Phone: Basophil percentageon 2021 Basophils/100 WBC (Bld) 0.7 % 0-1 [facility] Work Phone: Chloride [Moles/Vol] 105 mmol/L 98-107 [facility] Work Phone: [phone] Eosinophils/100 WBC (Bld) 3.1 % 0-5 [facility] Work Phone: [phone] Glucose [Mass/Vol] 97 mg/dL 74-106 [facility] Work Phone: [phone] Neutrophils (Bld) [#/Vol] 7.6 10*3/uL 2.0-7.7 [facility] Work Phone: [phone] Neutrophils/100 WBC (Bld) 56.1 % 47-70 [facility] Work Phone: [phone] Potassium [Moles/Vol] 3.7 mmol/L 3.5-5.1 [facility] Work Phone: [phone] Sodium [Moles/Vol] 139 mmol/L 136-145 [facility] Work Phone: WBC (Bld) [#/Vol] 13.6 10*3/uL 4.4-11.0 [facility] Work Phone: Blood erythrocytes count (nu mber/volume)on 10-11-2021 RBC (Bld) [#/Vol] 4.09 10*6/uL 4.2-5.4 [facility] Work Phone: [phone] Blood hemoglobin measurement (mass/volume)on 10-11-2021 Hemoglobin (Bld) [Mass/Vol] 12.1 g/dL 12.0-15.0 [facility] Work Phone: Blood lymphocytes/100 leukoc yteson 10-11-2021 Lymphocytes/100 WBC (Bld) 27.3 % 19-41 [facility] Work Phone: Blood monocytes/100 leukocyt eson 10-11-2021 Monocytes/100 WBC (Bld) 11.1 % 0-10 [facility] Work Phone: Blood platelet mean volumeon 10-11-2021 Platelet mean volume (Bld) [Entitic vol] 11.2 fL 6.2-12.0 [facility] Work Phone: Determination of erythrocyte mean corpuscular volume (MCV)on 10-11-2021 MCV (RBC) [Entitic vol] 92.4 fL 81-99 [facility] Work Phone: Hematocrit Auto (Bld) [Volum e fraction]on 10-11-2021 Hematocrit (Bld) [Volume fraction] 37.8 % 37-47 [facility] Work Phone: Laboratory - Chemistry and C hemistry - challengeon 10-11-2021 CO2 [Moles/Vol] 25.0 mmol/L 21.0-32.0 [facility] Work Phone: Urea nitrogen/Creatinine [Mass ratio] 16.0 mg/mg 10-20 [facility] Work Phone: Laboratory - Hematology and Cell countson 10-11-2021 Erythrocyte distribution width (RBC) [Entitic vol] 45.3 fL 35.1-43.9 [facility] Work Phone: Erythrocyte distribution width (RBC) [Ratio] 13.3 % 11.6-14.6 [facility] Work Phone: Immature granulocytes/100 WBC (Bld) 1.700 % 0.0-0.9 [facility] Work Phone: Comment on above: IG% - Immature Granu locytes (promyelocytes, myelocytes and metamyelocytes) > 1% indicates that a LEFT SHIFT is Present. MCH (RBC) [Entitic mass] 29.6 pg 27.0-32.0 [facility] Work Phone: Nucleated RBC/100 WBC (Bld) [Ratio] 0 % 0-5 [facility] Work Phone: MCHC Auto (RBC) [Mass/Vol]on 10-11-2021 MCHC (RBC) [Mass/Vol] 32.0 g/dL 32-36 [facility] Work Phone: No Panel Informationon 10-11 Estimated GFR (MDRD) Amer 101 mL/min >60 [facility] Work Phone: Comment on above: GFR Calc Estimated GFR (MDRD) Non-Af Amer 83 mL/min >60 [facility] Work Phone: Comment on above: Non- GFR Calc Platelets bldon 10-11-2021 Platelets (Bld) [#/Vol] 265 10*3/uL 150-450 [facility] Work Phone: Serum or plasma calcium thi urement (mass/volume)on 10-11-2021 Calcium [Mass/Vol] 9.4 mg/dL 8.5-10.1 [facility] Work Phone: Serum or plasma creatinine m easurement (mass/volume)on 10-11-2021 Creatinine [Mass/Vol] 0.81 mg/dL 0.55-1.02 [facility] Work Phone: Comment on above: The validity of the calculated GFR & GFRAA in patients over 70 years has not been determined. Clinical correlation is essential. Serum or plasma urea nitroge n measurement (mass/volume)on 10-11-2021 Urea nitrogen [Mass/Vol] 13 mg/dL 7-18 [facility] Work Phone: Thin prep Papanicolaou smear with manual screeningon 10-11-2021 Thin prep Papanicolaou smear with manual screening 9 5-15 [facility] Work Phone: Whole blood hemoglobin A1c/t otal hemoglobin ratio (mass fraction)on 10-11-2021 HbA1c (Bld) [Mass fraction] 9.2 % 3.8-5.6 [facility] Work Phone: Comment on above: Normal < 5.7 % Predi abetic 5.7 - 6.4 % Diabetic >or= 6.5 % Please note range changes. Absolute lymphocyte counton 09-17-2021 Lymphocytes Auto (Unsp spec) [#/Vol] 2.15 10*3/uL 0.83-4.51 [facility] Work Phone: Basophil percentageon 2021 Basophil percentage 10-25 SEEN /hpf 0-5 [facility] Work Phone: Basophils/100 WBC (Bld) 0.7 % 0-1 [facility] Work Phone: Chloride [Moles/Vol] 109 mmol/L 98-107 [facility] Work Phone: Eosinophils/100 WBC (Bld) 2.7 % 0-5 [facility] Work Phone: Glucose [Mass/Vol] 273 mg/dL 74-106 [facility] Work Phone: Comment on above: Glucose result great er than or equal to 200 mg/dLsuggests DIABETES MELLITUS per A.D.A. criteria. Neutrophils (Bld) [#/Vol] 6.4 10*3/uL 2.0-7.7 [facility] Work Phone: Neutrophils/100 WBC (Bld) 64.6 % 47-70 [facility] Work Phone: Potassium [Moles/Vol] 4.1 mmol/L 3.5-5.1 [facility] Work Phone: Sodium [Moles/Vol] 137 mmol/L 136-145 [facility] Work Phone: [phone] WBC (Bld) [#/Vol] 9.9 10*3/uL 4.4-11.0 [facility] Work Phone: Bilirubin Test strip Ql (U)o n 09-17-2021 Bilirubin Ql (U) Negative Negative [facility] Work Phone: Blood erythrocytes count (nu mber/volume)on 09-17-2021 RBC (Bld) [#/Vol] 4.64 10*6/uL 4.2-5.4 [facility] Work Phone: Blood hemoglobin measurement (mass/volume)on 09-17-2021 Hemoglobin (Bld) [Mass/Vol] 13.8 g/dL 12.0-15.0 [facility] Work Phone: Blood lymphocytes/100 leukoc yteson 09-17-2021 Lymphocytes/100 WBC (Bld) 21.7 % 19-41 [facility] Work Phone: Blood monocytes/100 leukocyt eson 09-17-2021 Monocytes/100 WBC (Bld) 9.4 % 0-10 [facility] Work Phone: Blood platelet mean volumeon 09-17-2021 Platelet mean volume (Bld) [Entitic vol] 10.6 fL 6.2-12.0 [facility] Work Phone: Culture, urineon 09-17-2021 Bacteria identified Cx Nom (U) Stenotrophomonas maltophilia [facility] Work Phone: Bacteria identified Cx Nom (U) Atopobium vaginae [facility] Work Phone: Bacteria identified Cx Nom (U) Streptococcus agalactiae (B) [facility] Work Phone: Determination of erythrocyte mean corpuscular volume (MCV)on 09-17-2021 MCV (RBC) [Entitic vol] 88.8 fL 81-99 [facility] Work Phone: Hematocrit Auto (Bld) [Volum e fraction]on 09-17-2021 Hematocrit (Bld) [Volume fraction] 41.2 % 37-47 [facility] Work Phone: Ketones Test strip Ql (U)on 09-17-2021 Ketones Ql (U) 50 mg/dl Negative [facility] Work Phone: Laboratory - Chemistry and C hemistry - challengeon 09-17-2021 CO2 [Moles/Vol] 23.0 mmol/L 21.0-32.0 [facility] Work Phone: Urea nitrogen/Creatinine [Mass ratio] 14.4 mg/mg 10-20 [facility] Work Phone: Laboratory - Hematology and Cell countson 09-17-2021 Erythrocyte distribution width (RBC) [Entitic vol] 43.7 fL 35.1-43.9 [facility] Work Phone: Erythrocyte distribution width (RBC) [Ratio] 13.4 % 11.6-14.6 [facility] Work Phone: Immature granulocytes/100 WBC (Bld) 0.900 % 0.0-0.9 [facility] Work Phone: Comment on above: IG% - Immature Granu locytes (promyelocytes, myelocytes and metamyelocytes) > 1% indicates that a LEFT SHIFT is Present. MCH (RBC) [Entitic mass] 29.7 pg 27.0-32.0 [facility] Work Phone: Nucleated RBC/100 WBC (Bld) [Ratio] 0 % 0-5 [facility] Work Phone: MCHC Auto (RBC) [Mass/Vol]on 09-17-2021 MCHC (RBC) [Mass/Vol] 33.5 g/dL 32-36 [facility] Work Phone: Mucus LM Ql (Urine sed)on Mucus Ql (Urine sed) 0 SEEN /hpf [facility] Work Phone: Nitrite Test strip Ql (U)on 09-17-2021 Nitrite Ql (U) Positive Negative [facility] Work Phone: No Panel Informationon 09-17 Estimated Creatinine Clearance Calc 60.28 ml/min [facility] Work Phone: Estimated GFR (MDRD) Amer 89 mL/min >60 [facility] Work Phone: Comment on above: GFR Calc Estimated GFR (MDRD) Non-Af Amer 74 mL/min >60 [facility] Work Phone: Comment on above: Non- GFR Calc Platelets bldon 09-17-2021 Platelets (Bld) [#/Vol] 177 10*3/uL 150-450 [facility] Work Phone: Protein Test strip Ql (U)on 09-17-2021 Protein Ql (U) 30 mg/dl Negative [facility] Work Phone: Serum or plasma calcium thi urement (mass/volume)on 09-17-2021 Calcium [Mass/Vol] 9.0 mg/dL 8.5-10.1 [facility] Work Phone: Serum or plasma creatinine m easurement (mass/volume)on 09-17-2021 Creatinine [Mass/Vol] 0.90 mg/dL 0.55-1.02 [facility] Work Phone: Comment on above: The validity of the calculated GFR & GFRAA in patients over 70 years has not been determined. Clinical correlation is essential. Serum or plasma urea nitroge n measurement (mass/volume)on 09-17-2021 Urea nitrogen [Mass/Vol] 13 mg/dL 7-18 [facility] Work Phone: Squamous epithelial cells de tection in urine sediment by light microscopyon 09-17-2021 Epithelial cells.squamous LM Ql (Urine sed) 0-5 SEEN /hpf 5-10 [facility] Work Phone: Thin prep Papanicolaou smear with manual screeningon 09-17-2021 Thin prep Papanicolaou smear with manual screening 5 5-15 [facility] Work Phone: Urine blood detectionon 08-28 RBC Ql (U) 25 /ul Negative [facility] Work Phone: RBC Ql (U) 0 SEEN /hpf 0-5 [facility] Work Phone: Urine clarityon 09-17-2021 Clarity (U) Sl Cldy Clear [facility] Work Phone: Comment on above: Previous reported re sult: Clear Edited by: NIMCO on 09/17/21:1645 AMENDED REPORT 09/17/21 [id number] CLARITY previously reported as: Clear Urine color determinationon 09-17-2021 Color (U) Yellow Yellow [facility] Work Phone: Urine glucose detectionon Glucose Ql (U) 1000 mg/dl Normal [facility] Work Phone: Urine leukocyte esterase det ection by dipstickon 09-17-2021 Leukocyte esterase Test strip Ql (U) 500 /ul Negative [facility] Work Phone: Urine pHon 09-17-2021 pH (U) 6.5 [pH] 5.0 - 8.0 [facility] Work Phone: Urine sediment bacteria coun t by microscopy (number/high power field)on 09-17-2021 Bacteria LM.HPF (Urine sed) [#/Area] 2 /[HPF] None Seen [facility] Work Phone: Urine specific gravity measu rementon 09-17-2021 Specific gravity (U) [Rel density] 1.015 1.002-1.03 0 [facility] Work Phone: Urobilinogen Auto test strip Ql (U)on 09-17-2021 Urobilinogen Ql (U) Normal mg/dl Normal [facility] Work Phone: MRI BRAIN WO/W IVCONon 09-09 [facility] MRI LUMBAR SPINE WO IVCONon 09-09-2021 [facility] MARY BY IFA WITH REFLEXon Nuclear Ab IF (S) [Titer] Negative Negative [facility] RHEUMATOID FACTOR BLon 08-27 Rheumatoid factor Qn [IU]/mL <16 IU/mL [facility] TSH BLDon 08-27-2021 TSH Qn 1.370 m[IU]/L 0.270 - 4.200 mIU/L [facility] VITAMIN B12 BLOODon 08-28-19 Cobalamin (Vitamin B12) [Mass/Vol] 404 pg/mL 232-1,245 pg/mL [facility] Absolute lymphocyte counton 08-20-2021 Lymphocytes Auto (Unsp spec) [#/Vol] 3.30 10*3/uL 0.83-4.51 [facility] Work Phone: Basophil percentageon 2021 Basophil percentage >100 SEEN /hpf 0-5 [facility] Work Phone: Basophils/100 WBC (Bld) 0.8 % 0-1 [facility] Work Phone: [phone] Chloride [Moles/Vol] 105 mmol/L 98-107 [facility] Work Phone: Eosinophils/100 WBC (Bld) 1.8 % 0-5 [facility] Work Phone: Glucose [Mass/Vol] 333 mg/dL 74-106 [facility] Work Phone: Comment on above: Glucose result great er than or equal to 200 mg/dLsuggests DIABETES MELLITUS per A.D.A. criteria. Neutrophils (Bld) [#/Vol] 6.2 10*3/uL 2.0-7.7 [facility] Work Phone: Neutrophils/100 WBC (Bld) 57.0 % 47-70 [facility] Work Phone: Potassium [Moles/Vol] 3.6 mmol/L 3.5-5.1 [facility] Work Phone: Sodium [Moles/Vol] 136 mmol/L 136-145 [facility] Work Phone: [phone] WBC (Bld) [#/Vol] 10.8 10*3/uL 4.4-11.0 [facility] Work Phone: Bilirubin Test strip Ql (U)o n 08-20-2021 Bilirubin Ql (U) Negative Negative [facility] Work Phone: Blood erythrocytes count (nu mber/volume)on 08-20-2021 RBC (Bld) [#/Vol] 4.59 10*6/uL 4.2-5.4 [facility] Work Phone: Blood hemoglobin measurement (mass/volume)on 08-20-2021 Hemoglobin (Bld) [Mass/Vol] 13.9 g/dL 12.0-15.0 [facility] Work Phone: Blood lymphocytes/100 leukoc yteson 08-20-2021 Lymphocytes/100 WBC (Bld) 30.4 % 19-41 [facility] Work Phone: Blood monocytes/100 leukocyt eson 08-20-2021 Monocytes/100 WBC (Bld) 9.4 % 0-10 [facility] Work Phone: Blood platelet mean volumeon 08-20-2021 Platelet mean volume (Bld) [Entitic vol] 11.0 fL 6.2-12.0 [facility] Work Phone: Culture, urineon 08-20-2021 Bacteria identified Cx Nom (U) Serratia rubidaea [facility] Work Phone: Determination of erythrocyte mean corpuscular volume (MCV)on 08-20-2021 MCV (RBC) [Entitic vol] 89.5 fL 81-99 [facility] Work Phone: Hematocrit Auto (Bld) [Volum e fraction]on 08-20-2021 Hematocrit (Bld) [Volume fraction] 41.1 % 37-47 [facility] Work Phone: Ketones Test strip Ql (U)on 08-20-2021 Ketones Ql (U) Negative Negative [facility] Work Phone: Laboratory - Chemistry and C hemistry - challengeon 08-20-2021 CO2 [Moles/Vol] 24.0 mmol/L 21.0-32.0 [facility] Work Phone: Urea nitrogen/Creatinine [Mass ratio] 13.2 mg/mg 10-20 [facility] Work Phone: Laboratory - Hematology and Cell countson 08-20-2021 Erythrocyte distribution width (RBC) [Entitic vol] 43.9 fL 35.1-43.9 [facility] Work Phone: Erythrocyte distribution width (RBC) [Ratio] 13.4 % 11.6-14.6 [facility] Work Phone: Immature granulocytes/100 WBC (Bld) 0.600 % 0.0-0.9 [facility] Work Phone: Comment on above: IG% - Immature Granu locytes (promyelocytes, myelocytes and metamyelocytes) > 1% indicates that a LEFT SHIFT is Present. MCH (RBC) [Entitic mass] 30.3 pg 27.0-32.0 [facility] Work Phone: Nucleated RBC/100 WBC (Bld) [Ratio] 0 % 0-5 [facility] Work Phone: MCHC Auto (RBC) [Mass/Vol]on 08-20-2021 MCHC (RBC) [Mass/Vol] 33.8 g/dL 32-36 [facility] Work Phone: Mucus LM Ql (Urine sed)on Mucus Ql (Urine sed) 0 SEEN /hpf [facility] Work Phone: Nitrite Test strip Ql (U)on 08-20-2021 Nitrite Ql (U) Positive Negative [facility] Work Phone: No Panel Informationon 08-20 Estimated GFR (MDRD) Amer 74 mL/min >60 [facility] Work Phone: Comment on above: GFR Calc Estimated GFR (MDRD) Non-Af Amer 61 mL/min >60 [facility] Work Phone: Comment on above: Non- GFR Calc Platelets bldon 08-20-2021 Platelets (Bld) [#/Vol] 214 10*3/uL 150-450 [facility] Work Phone: Protein Test strip Ql (U)on 08-20-2021 Protein Ql (U) 100 mg/dl Negative [facility] Work Phone: Serum or plasma calcium thi urement (mass/volume)on 08-20-2021 Calcium [Mass/Vol] 8.6 mg/dL 8.5-10.1 [facility] Work Phone: Serum or plasma creatinine m easurement (mass/volume)on 08-20-2021 Creatinine [Mass/Vol] 1.06 mg/dL 0.55-1.02 [facility] Work Phone: Comment on above: The validity of the calculated GFR & GFRAA in patients over 70 years has not been determined. Clinical correlation is essential. Serum or plasma urea nitroge n measurement (mass/volume)on 08-20-2021 Urea nitrogen [Mass/Vol] 14 mg/dL 7-18 [facility] Work Phone: Squamous epithelial cells de tection in urine sediment by light microscopyon 08-20-2021 Epithelial cells.squamous LM Ql (Urine sed) 0-5 SEEN /hpf 5-10 [facility] Work Phone: Thin prep Papanicolaou smear with manual screeningon 08-20-2021 Thin prep Papanicolaou smear with manual screening 7 5-15 [facility] Work Phone: Urine blood detectionon 07-28 RBC Ql (U) 25 /ul Negative [facility] Work Phone: RBC Ql (U) 0-5 SEEN /hpf 0-5 [facility] Work Phone: Urine clarityon 08-20-2021 Clarity (U) Sl. Cloudy Clear [facility] Work Phone: Urine color determinationon 08-20-2021 Color (U) Yellow Yellow [facility] Work Phone: Urine glucose detectionon Glucose Ql (U) 1000 mg/dl Normal [facility] Work Phone: Urine leukocyte esterase det ection by dipstickon 08-20-2021 Leukocyte esterase Test strip Ql (U) 500 /ul Negative [facility] Work Phone: Urine pHon 08-20-2021 pH (U) 6.0 [pH] 5.0 - 8.0 [facility] Work Phone: Urine sediment bacteria coun t by microscopy (number/high power field)on 08-20-2021 Bacteria LM.HPF (Urine sed) [#/Area] 4 /[HPF] None Seen [facility] Work Phone: Urine specific gravity measu rementon 08-20-2021 Specific gravity (U) [Rel density] 1.015 1.002-1.03 0 [facility] Work Phone: Urobilinogen Auto test strip Ql (U)on 08-20-2021 Urobilinogen Ql (U) Normal mg/dl Normal [facility] Work Phone: Absolute lymphocyte counton 06-30-2021 Lymphocytes Auto (Unsp spec) [#/Vol] 2.93 10*3/uL 0.83-4.51 [facility] Work Phone: Basophil percentageon 2021 Basophils/100 WBC (Bld) 0.6 % 0-1 [facility] Work Phone: Chloride [Moles/Vol] 104 mmol/L 98-107 [facility] Work Phone: Eosinophils/100 WBC (Bld) 3.5 % 0-5 [facility] Work Phone: Glucose [Mass/Vol] 302 mg/dL 74-106 [facility] Work Phone: Comment on above: Glucose result great er than or equal to 200 mg/dLsuggests DIABETES MELLITUS per A.D.A. criteria. Neutrophils (Bld) [#/Vol] 5.6 10*3/uL 2.0-7.7 [facility] Work Phone: Neutrophils/100 WBC (Bld) 54.8 % 47-70 [facility] Work Phone: Potassium [Moles/Vol] 3.7 mmol/L 3.5-5.1 [facility]: Sodium [Moles/Vol] 136 mmol/L 136-145 [facility] Work Phone: WBC (Bld) [#/Vol] 10.2 10*3/uL 4.4-11.0 [facility]: Blood erythrocytes count (nu mber/volume)on 06-30-2021 RBC (Bld) [#/Vol] 4.49 10*6/uL 4.2-5.4 [facility] Work [facility]: Blood hemoglobin measurement (mass/volume)on 06-30-2021 Hemoglobin (Bld) [Mass/Vol] 13.0 g/dL 12.0-15.0 [facility] Work Phone: Blood lymphocytes/100 leukoc yteson 06-30-2021 Lymphocytes/100 WBC (Bld) 28.8 % 19-41 [facility] Work Phone: Blood monocytes/100 leukocyt eson 06-30-2021 Monocytes/100 WBC (Bld) 10.2 % 0-10 [facility] Work Phone: Blood platelet mean volumeon 06-30-2021 Platelet mean volume (Bld) [Entitic vol] 10.6 fL 6.2-12.0 [facility] Work Phone: Determination of erythrocyte mean corpuscular volume (MCV)on 06-30-2021 MCV (RBC) [Entitic vol] 87.8 fL 81-99 [facility] Work Phone: Hematocrit Auto (Bld) [Volum e fraction]on 06-30-2021 Hematocrit (Bld) [Volume fraction] 39.4 % 37-47 [facility] Work Phone: Laboratory - Chemistry and C hemistry - challengeon 06-30-2021 CO2 [Moles/Vol] 23.0 mmol/L 21.0-32.0 [facility] Work Phone: Urea nitrogen/Creatinine [Mass ratio] 9.7 mg/mg 10-20 [facility] Work Phone: Laboratory - Hematology and Cell countson 06-30-2021 Erythrocyte distribution width (RBC) [Entitic vol] 43.4 fL 35.1-43.9 [facility] Work Phone: Erythrocyte distribution width (RBC) [Ratio] 13.5 % 11.6-14.6 [facility] Work Phone: Immature granulocytes/100 WBC (Bld) 2.100 % 0.0-0.9 [facility] Work Phone: Comment on above: IG% - Immature Granu locytes (promyelocytes, myelocytes and metamyelocytes) > 1% indicates that a LEFT SHIFT is Present. MCH (RBC) [Entitic mass] 29.0 pg 27.0-32.0 [facility] Work Phone: Nucleated RBC/100 WBC (Bld) [Ratio] 0 % 0-5 [facility] Work Phone: MCHC Auto (RBC) [Mass/Vol]on 06-30-2021 MCHC (RBC) [Mass/Vol] 33.0 g/dL 32-36 [facility] Work Phone: No Panel Informationon 06-30 Estimated Creatinine Clearance Calc 61.95 ml/min [facility] Work Phone: Estimated GFR (MDRD) Amer 87 mL/min >60 [facility] Work Phone: Comment on above: GFR Calc Estimated GFR (MDRD) Non-Af Amer 72 mL/min >60 [facility] Work Phone: Comment on above: Non- GFR Calc Platelets bldon 06-30-2021 Platelets (Bld) [#/Vol] 228 10*3/uL 150-450 [facility] Work Phone: Serum or plasma calcium thi urement (mass/volume)on 06-30-2021 Calcium [Mass/Vol] 8.8 mg/dL 8.5-10.1 [facility] Work Phone: Serum or plasma creatinine m easurement (mass/volume)on 06-30-2021 Creatinine [Mass/Vol] 0.92 mg/dL 0.55-1.02 [facility] Work Phone: Comment on above: The validity of the calculated GFR & GFRAA in patients over 70 years has not been determined. Clinical correlation is essential. Serum or plasma urea nitroge n measurement (mass/volume)on 06-30-2021 Urea nitrogen [Mass/Vol] 9 mg/dL 7-18 [facility] Work Phone: Thin prep Papanicolaou smear with manual screeningon 06-30-2021 Thin prep Papanicolaou smear with manual screening 9 5-15 [facility] Work Phone: Amorphous sediment detection in urine sediment by light microscopyon 06-28-2021 Amorphous sediment LM Ql (Urine sed) 1+ [facility] Work Phone: Basophil percentageon 2021 Basophil percentage 10-25 SEEN /hpf [facility] Work Phone: Bilirubin Test strip Ql (U)o n 06-28-2021 Bilirubin Ql (U) Negative Negative [facility] Work Phone: Ketones Test strip Ql (U)on 06-28-2021 Ketones Ql (U) 5 mg/dl Negative [facility] Work Phone: Laboratory - Microbiology an d Antimicrobial susceptibilityon 06-28-2021 Bacteria identified Cx Nom (Bld) No growth in 5 days. [facility] Work Phone: Mucus LM Ql (Urine sed)on Mucus Ql (Urine sed) 0 SEEN /hpf [facility] Work Phone: Nitrite Test strip Ql (U)on 06-28-2021 Nitrite Ql (U) Positive Negative [facility] Work Phone: Protein Test strip Ql (U)on 06-28-2021 Protein Ql (U) 30 mg/dl Negative [facility] Work Phone: Squamous epithelial cells de tection in urine sediment by light microscopyon 06-28-2021 Epithelial cells.squamous LM Ql (Urine sed) 0-5 SEEN /hpf [facility] Work Phone: Urine blood detectionon 05-31 RBC Ql (U) 25 /ul Negative [facility] Work Phone: RBC Ql (U) 0-5 SEEN /hpf [facility] Work Phone: Urine clarityon 06-28-2021 Clarity (U) Cloudy Clear [facility] Work Phone: Urine color determinationon 06-28-2021 Color (U) Yellow Yellow [facility] Work Phone: Urine glucose detectionon Glucose Ql (U) 1000 mg/dl Normal [facility] Work Phone: Urine leukocyte esterase det ection by dipstickon 06-28-2021 Leukocyte esterase Test strip Ql (U) 100 /ul Negative [facility] Work Phone: Urine pHon 06-28-2021 pH (U) 6.5 [pH] [facility] Work Phone: Urine sediment bacteria coun t by microscopy (number/high power field)on 06-28-2021 Bacteria LM.HPF (Urine sed) [#/Area] 4 /[HPF] None Seen [facility] Work Phone: Urine specific gravity measu rementon 06-28-2021 Specific gravity (U) [Rel density] 1.015 [facility] Work Phone: Urobilinogen Auto test strip Ql (U)on 06-28-2021 Urobilinogen Ql (U) Normal mg/dl Normal [facility] Work Phone: Absolute lymphocyte counton 06-27-2021 Lymphocytes Auto (Unsp spec) [#/Vol] 2.85 10*3/uL 0.83-4.51 [facility] Work Phone: Basophil percentageon 2021 Basophils/100 WBC (Bld) 0.6 % 0-1 [facility] Work Phone: Bilirubin [Mass/Vol] 0.30 mg/dL 0.20-1.00 [facility] Work Phone: Comment on above: For patients on eltr ombopag therapy, use of Dimension [place] TBIL is not recommended. Chloride [Moles/Vol] 103 mmol/L 98-107 [facility] Work Phone: Eosinophils/100 WBC (Bld) 1.9 % 0-5 [facility] Work Phone: Glucose [Mass/Vol] 294 mg/dL 74-106 [facility] Work Phone: Comment on above: Glucose result great er than or equal to 200 mg/dLsuggests DIABETES MELLITUS per A.D.A. criteria. Lactate [Moles/Vol] 1.5 mmol/L 0.4-2.0 [facility] Work [facility]: Neutrophils (Bld) [#/Vol] 11.2 10*3/uL 2.0-7.7 [facility] Work Phone: Neutrophils/100 WBC (Bld) 70.3 % 47-70 [facility] Work Phone: Potassium [Moles/Vol] 4.0 mmol/L 3.5-5.1 [facility] Work Phone: Comment on above: Moderate Hemolysis, Result may be falsely increased. Protein [Mass/Vol] 8.0 g/dL 6.4-8.2 [facility] Work Phone: Sodium [Moles/Vol] 135 mmol/L 136-145 [facility] Work Phone: WBC (Bld) [#/Vol] 15.9 10*3/uL 4.4-11.0 [facility] Work Phone: Blood erythrocytes count (nu mber/volume)on 06-27-2021 RBC (Bld) [#/Vol] 4.66 10*6/uL 4.2-5.4 [facility] Work Phone: Blood hemoglobin measurement (mass/volume)on 06-27-2021 Hemoglobin (Bld) [Mass/Vol] 13.6 g/dL 12.0-15.0 [facility] Work Phone: Blood lymphocytes/100 leukoc yteson 06-27-2021 Lymphocytes/100 WBC (Bld) 17.9 % 19-41 [facility] Work Phone: Blood monocytes/100 leukocyt eson 06-27-2021 Monocytes/100 WBC (Bld) 7.5 % 0-10 [facility] Work Phone: Blood platelet mean volumeon 06-27-2021 Platelet mean volume (Bld) [Entitic vol] 11.2 fL 6.2-12.0 [facility] Work Phone: Culture, urineon 06-27-2021 Bacteria identified Cx Nom (U) Mixed Gram Pos & Gram Neg Org [facility] Work Phone: Determination of erythrocyte mean corpuscular volume (MCV)on 06-27-2021 MCV (RBC) [Entitic vol] 88.8 fL 81-99 [facility] Work Phone: Hematocrit Auto (Bld) [Volum e fraction]on 06-27-2021 Hematocrit (Bld) [Volume fraction] 41.4 % 37-47 [facility] Work Phone: [phone] Laboratory - Chemistry and C hemistry - challengeon 06-27-2021 ALP [Catalytic activity/Vol] 88 U/L 45-117 [facility] Work Phone: [phone] ALT [Catalytic activity/Vol] 56 U/L 13-56 [facility] Work Phone: [phone] CO2 [Moles/Vol] 25.0 mmol/L 21.0-32.0 [facility] Work Phone: [phone] Globulin (S) [Mass/Vol] 4.4 g/dL 2.2-4.2 [facility] Work Phone: [phone] Urea nitrogen/Creatinine [Mass ratio] 11.0 mg/mg 10-20 [facility] Work Phone: [phone] Laboratory - Hematology and Cell countson 06-27-2021 Erythrocyte distribution width (RBC) [Entitic vol] 44.1 fL 35.1-43.9 [facility] Work Phone: [phone] Erythrocyte distribution width (RBC) [Ratio] 13.6 % 11.6-14.6 [facility] Work Phone: [phone] Immature granulocytes/100 WBC (Bld) 1.800 % 0.0-0.9 [facility] Work Phone: [phone] Comment on above: IG% - Immature Granu locytes (promyelocytes, myelocytes and metamyelocytes) > 1% indicates that a LEFT SHIFT is Present. MCH (RBC) [Entitic mass] 29.2 pg 27.0-32.0 [facility] Work Phone: [phone] Nucleated RBC/100 WBC (Bld) [Ratio] 0 % 0-5 [facility] Work Phone: [phone] MCHC Auto (RBC) [Mass/Vol]on 06-27-2021 MCHC (RBC) [Mass/Vol] 32.9 g/dL 32-36 [facility]: No Panel Informationon 06-27 Estimated Creatinine Clearance Calc 56.99 ml/min [facility] Work Phone: Estimated GFR (MDRD) Amer 79 mL/min >60 [facility] Work Phone: Comment on above: GFR Calc Estimated GFR (MDRD) Non-Af Amer 65 mL/min >60 [facility] Work Phone: Comment on above: Non- GFR Calc Platelets bldon 06-27-2021 Platelets (Bld) [#/Vol] 215 10*3/uL 150-450 [facility] Work Phone: Serum or plasma albumin thi urement (mass/volume)on 06-27-2021 Albumin [Mass/Vol] 3.6 g/dL 3.2-5.0 [facility] Work Phone: Serum or plasma albumin/glob ulin mass ratioon 06-27-2021 Albumin/Globulin [Mass ratio] 0.8 {ratio} 0.9-2.4 [facility] Work Phone: Serum or plasma calcium thi urement (mass/volume)on 06-27-2021 Calcium [Mass/Vol] 8.9 mg/dL 8.5-10.1 [facility] Work Phone: Serum or plasma creatinine m easurement (mass/volume)on 06-27-2021 Creatinine [Mass/Vol] 1.00 mg/dL 0.55-1.02 [facility] Work Phone: Comment on above: The validity of the calculated GFR & GFRAA in patients over 70 years has not been determined. Clinical correlation is essential. Serum or plasma urea nitroge n measurement (mass/volume)on 06-27-2021 Urea nitrogen [Mass/Vol] 11 mg/dL 7-18 [facility] Work Phone: Thin prep Papanicolaou smear with manual screeningon 06-27-2021 Thin prep Papanicolaou smear with manual screening 45 U/L 15-37 [facility] Work Phone: Comment on above: Moderate Hemolysis, Result may be falsely increased. Thin prep Papanicolaou smear with manual screening 7 5-15 [facility] Work Phone: Absolute lymphocyte counton 06-03-2021 Lymphocytes Auto (Unsp spec) [#/Vol] 1.29 10*3/uL 0.83-4.51 [facility] Work Phone: Basophil percentageon 2021 Basophils/100 WBC (Bld) 0.7 % 0-1 [facility] Work Phone: Chloride [Moles/Vol] 100 mmol/L 98-107 [facility] Work Phone: Eosinophils/100 WBC (Bld) 1.6 % 0-5 [facility] Work Phone: Glucose [Mass/Vol] 291 mg/dL 74-106 [facility] Work Phone: Comment on above: Glucose result great er than or equal to 200 mg/dLsuggests DIABETES MELLITUS per A.D.A. criteria.Please note revised GLUCOSE reference range effective 2017. Lactate [Moles/Vol] 1.6 mmol/L 0.4-2.0 [facility] Work Phone: Neutrophils (Bld) [#/Vol] 7.1 10*3/uL 2.0-7.7 [facility] Work Phone: Neutrophils/100 WBC (Bld) 75.2 % 47-70 [facility] Work Phone: Potassium [Moles/Vol] 3.7 mmol/L 3.5-5.1 [facility] Work Phone: Sodium [Moles/Vol] 134 mmol/L 136-145 [facility] Work Phone: WBC (Bld) [#/Vol] 9.4 10*3/uL 4.4-11.0 [facility] Work Phone: Blood erythrocytes count (nu mber/volume)on 06-03-2021 RBC (Bld) [#/Vol] 4.99 10*6/uL 4.2-5.4 [facility] Work Phone: Blood hemoglobin measurement (mass/volume)on 06-03-2021 Hemoglobin (Bld) [Mass/Vol] 14.6 g/dL 12.0-15.0 [facility] Work Phone: Blood lymphocytes/100 leukoc yteson 06-03-2021 Lymphocytes/100 WBC (Bld) 13.8 % 19-41 [facility] Work Phone: Blood manual differential co mment interpretation (narrative result)on 06-03-2021 Manual differential comment Allen (Bld) [Interp] SCANNED [facility] Work Phone: Comment on above: AUTO DIFF OK Blood monocytes/100 leukocyt eson 06-03-2021 Monocytes/100 WBC (Bld) 7.2 % 0-10 [facility] Work Phone: Blood platelet mean volumeon 06-03-2021 Platelet mean volume (Bld) [Entitic vol] 10.9 fL 6.2-12.0 [facility] Work Phone: Determination of erythrocyte mean corpuscular volume (MCV)on 06-03-2021 MCV (RBC) [Entitic vol] 88.0 fL 81-99 [facility] Work Phone: Hematocrit Auto (Bld) [Volum e fraction]on 06-03-2021 Hematocrit (Bld) [Volume fraction] 43.9 % 37-47 [facility] Work Phone: Laboratory - Chemistry and C hemistry - challengeon 06-03-2021 CO2 [Moles/Vol] 24.0 mmol/L 21.0-32.0 [facility] Work Phone: Urea nitrogen/Creatinine [Mass ratio] 15.5 mg/mg 10-20 [facility] Work Phone: Laboratory - Hematology and Cell countson 06-03-2021 Erythrocyte distribution width (RBC) [Entitic vol] 41.7 fL 35.1-43.9 [facility] Work Phone: Erythrocyte distribution width (RBC) [Ratio] 12.9 % 11.6-14.6 [facility] Work Phone: Immature granulocytes/100 WBC (Bld) 1.500 % 0.0-0.9 [facility] Work Phone: Comment on above: IG% - Immature Granu locytes (promyelocytes, myelocytes and metamyelocytes) > 1% indicates that a LEFT SHIFT is Present. MCH (RBC) [Entitic mass] 29.3 pg 27.0-32.0 [facility] Work Phone: Nucleated RBC/100 WBC (Bld) [Ratio] 0 % 0-5 [facility] Work Phone: MCHC Auto (RBC) [Mass/Vol]on 06-03-2021 MCHC (RBC) [Mass/Vol] 33.3 g/dL 32-36 [facility] Work Phone: No Panel Informationon 06-03 Estimated Creatinine Clearance Calc 49.13 ml/min [facility] Work Phone: Estimated GFR (MDRD) Amer 67 mL/min >60 [facility] Work Phone: Comment on above: GFR Calc Estimated GFR (MDRD) Non-Af Amer 55 mL/min >60 [facility] Work Phone: Comment on above: Non- GFR Calc Platelets bldon 06-03-2021 Platelets (Bld) [#/Vol] 198 10*3/uL 150-450 [facility] Work Phone: Serum or plasma calcium thi urement (mass/volume)on 06-03-2021 Calcium [Mass/Vol] 9.9 mg/dL 8.5-10.1 [facility] Work Phone: Serum or plasma creatinine m easurement (mass/volume)on 06-03-2021 Creatinine [Mass/Vol] 1.16 mg/dL 0.55-1.02 [facility] Work Phone: Comment on above: The validity of the calculated GFR & GFRAA in patients over 70 years has not been determined. Clinical correlation is essential. Serum or plasma urea nitroge n measurement (mass/volume)on 06-03-2021 Urea nitrogen [Mass/Vol] 18 mg/dL 7-18 [facility] Work Phone: Thin prep Papanicolaou smear with manual screeningon 06-03-2021 Thin prep Papanicolaou smear with manual screening 10 5-15 [facility] Work Phone: LABORATORYOrdered By: Cinthia Blunt on 04-28-2021 Appearance (U) Cloudy *ABN* (04/28/21 9:22 PM) Invalid Interpretation Code Clear AO Auto Urine SS Bacteria LM.HPF (Urine sed) [#/Area] 1 /[HPF] Invalid Interpretation Code AO Auto Urine SS Basophil, Absolute 0.00 103/mcL Invalid Interpretation Code 0.00 - 0.19 10^3/mcL AO Auto Heme SS Basophils/100 WBC (Bld) 0.2 % Invalid Interpretation Code 0.0 - 2.5 % AO Auto Heme SS Bilirubin Ql (U) Negative (04/28/21 9:22 PM) Invalid Interpretation Code Negative AO Auto Urine SS Calcium [Mass/Vol] 9.2 mg/dL Invalid Interpretation Code 8.4 - 10.2 mg/dL AO ADM SS Chloride [Moles/Vol] 100 mmol/L Invalid Interpretation Code 98 - 107 mmol/L AO ADM SS CO2 [Moles/Vol] 24 mmol/L Invalid Interpretation Code 22 - 29 mmol/L AO ADM SS Color (U) Yellow (04/28/21 9:22 PM) Invalid Interpretation Code AO Auto Urine SS Creatinine [Mass/Vol] 0.93 mg/dL Invalid Interpretation Code 0.55 - 1.02 mg/dL AO ADM SS Electrolyte Balance 13.0 mEq/L Invalid Interpretation Code AO ADM SS Eosinophil, Absolute 0.20 103/mcL Invalid Interpretation Code 0.00 - 0.40 10^3/mcL AO Auto Heme SS Eosinophils/100 WBC (Bld) 1.7 % Invalid Interpretation Code 0.0 - 7.0 % AO Auto Heme SS Erythrocyte distribution width (RBC) [Ratio] 13.8 % Invalid Interpretation Code 11.5 - 14.5 % AO Auto Heme SS Glucose [Mass/Vol] 324 mg/dL Invalid Interpretation Code 70 - 105 mg/dL AO ADM SS Glucose Test strip (U) [Mass/Vol] >=1000 mg/dL Invalid Interpretation Code Negativemg /dL AO Auto Urine SS Hematocrit (Bld) [Volume fraction] 42.5 % Invalid Interpretation Code 37.0 - 47.0 % AO Auto Heme SS Hemoglobin (Bld) [Mass/Vol] 14.1 G/dL Invalid Interpretation Code 12.0 - 16.0 G/dL AO Auto Heme SS Hemoglobin Auto test strip (U) [Mass/Vol] Moderate *ABN* (04/28/21 9:22 PM) Invalid Interpretation Code Negative AO Auto Urine SS Ketones Ql (U) Negative Invalid Interpretation Code Negativemg /dL AO Auto Urine SS Lymphocyte, Absolute 2.80 103/mcL Invalid Interpretation Code 0.77 - 3.85 10^3/mcL AO Auto Heme SS Lymphocytes/100 WBC (Bld) 20.7 % Invalid Interpretation Code 10.0 - 50.0 % AO Auto Heme SS MCH (RBC) [Entitic mass] 29.4 pg Invalid Interpretation Code 27.0 - 31.2 pg AO Auto Heme SS MCHC (RBC) [Mass/Vol] 33.2 G/dL Invalid Interpretation Code 33.0 - 37.0 G/dL AO Auto Heme SS MCV (RBC) [Entitic vol] 88.8 fL Invalid Interpretation Code 80.0 - 94.0 fL AO Auto Heme SS Monocyte, Absolute 1.10 103/mcL Invalid Interpretation Code 0.15 - 1.00 10^3/mcL AO Auto Heme SS Monocytes/100 WBC (Bld) 8.3 % Invalid Interpretation Code 1.7 - 13.0 % AO Auto Heme SS Neutrophil, Absolute 9.40 103/mcL Invalid Interpretation Code 2.85 - 6.16 10^3/mcL AO Auto Heme SS Neutrophils/100 WBC (Bld) 69.1 % Invalid Interpretation Code 37.0 - 80.0 % AO Auto Heme SS Platelet mean volume (Bld) [Entitic vol] 9.7 fL Invalid Interpretation Code 7.4 - 10.4 fL AO Auto Heme SS Platelets (Bld) [#/Vol] 228 103/mcL Invalid Interpretation Code 130 - 400 10^3/mcL AO Auto Heme SS Potassium [Moles/Vol] 3.8 mmol/L Invalid Interpretation Code 3.5 - 5.1 mmol/L AO ADM SS RBC (Bld) [#/Vol] 4.79 106/mcL Invalid Interpretation Code 4.20 - 5.40 10^6/mcL AO Auto Heme SS RBC.non-dysmorphic LM Ql (Urine sed) 5-10 /HPF Invalid Interpretation Code AO Auto Urine SS Sodium [Moles/Vol] 137 mmol/L Invalid Interpretation Code 136 - 145 mmol/L AO ADM SS UA Leuk Est Negative (04/28/21 9:22 PM) Invalid Interpretation Code Negative AO Auto Urine SS UA Nitrite Negative (04/28/21 9:22 PM) Invalid Interpretation Code Negative AO Auto Urine SS UA pH 6.5 (04/28/21 9:22 PM) Invalid Interpretation Code 5.0 - 8.0 AO Auto Urine SS UA Protein 100 mg/dL Invalid Interpretation Code Negativemg /dL AO Auto Urine SS UA RBC 5-10 /HPF Invalid Interpretation Code None Seen/HPF AO Auto Urine SS UA Spec Grav 1.020 (04/28/21 9:22 PM) Invalid Interpretation Code 1.015-1.02 5 AO Auto Urine SS UA Specimen Type Catheter (04/28/21 9:22 PM) Invalid Interpretation Code AO Auto Urine SS UA Squam Epithelial 0-5 /HPF Invalid Interpretation Code None Seen/HPF AO Auto Urine SS UA Urobilinogen 0.2 E.U./dL Invalid Interpretation Code 0.2-1.0E.U ./dL AO Auto Urine SS Urea nitrogen [Mass/Vol] 10 mg/dL Invalid Interpretation Code 7 - 18 mg/dL AO ADM SS Urea nitrogen/Creatinine [Mass ratio] 11 ratio Invalid Interpretation Code 7 - 27 ratio AO ADM SS WBC (Bld) [#/Vol] 13.60 103/mcL Invalid Interpretation Code 4.60 - 10.80 10^3/mcL AO Auto Heme SS WBC LM.HPF (Urine sed) [#/Area] None Seen /HPF Invalid Interpretation Code None Seen/HPF AO Auto Urine SS LABORATORYOrdered By: SYSTEM SYSTEM on 04-28-2021 GFR 81 ml/min/1.73sqm Invalid Interpretation Code AO Chemistry S GFR Non- 67 ml/min/1.73sqm Invalid Interpretation Code AO Chemistry S ED NOTEon 12-26-2017 ED NOTE HNO ID: [id number] Author: Kati ValdezRn) VERNON Be Service: Emergency Medicine Author Type: Registered Nurse Type: ED Notes Filed: 12/26/2017 12:27 PM Note Text: Pt given icepack . Aware up for d/c . Aware waiting on paperwork Normal [facility] ED NOTE HNO ID: [id number] Author: Kati Hinojosa) [place]ERNON Be Service: Emergency Medicine Author Type: Registered Nurse Type: ED Notes Filed: 12/26/2017 11:34 AM Note Text: Visitor at bedside. Normal [facility] ED PROV NOTEon 12-26-2017 Protein mass conc HNO ID: [id number]: NIKKO Greerervice: Emergency MedicineAuthor Type: PhysicianType: ED Provider NotesFiled: 12/26/2017 12:17 PMNote Text:The patient was 2 weeks status post hernia surgery. She reports that shefell. She states that she ran out of her pain medication. She has had 5consistent emergency department for abdominal pain, similar complaints andrecently had a CAT scan which showed no new pathology. On exam, thepatient appears to be comfortable. There is no ecchymosis to theabdominal wall, and her surgical incision is intact and clean. She hasminimal tenderness to palpation. I do not feel that narcotics areindicated at this time. She has been advised to use ice pack and Tylenolfor her discomfort. She'll be discharged in stable condition.Annamaria Chaudhary MD12/26/17 1217 Normal [facility] Protein mass conc HNO ID: [id number]: NIKKO Greerervice: Emergency MedicineAuthor Type: PhysicianType: ED Provider NotesFiled: 12/27/2017 3:55 PMNote Text:ED Provider NotePatient Name: Debby BailonMRN: [id number] DATE: 12/26/17HistoryPatient presents with:Abdominal Pain: pt had hernia surgery on the 12/11, pt fell due to anklerolling, states fell on stomach. denies any bleeding from site. dressingsintact. AANDOx3, MAEx4.The patient is a 37 year old female with a signficant past medical historyof a parastomal hernia repair on 12/11/[address] Bella, who presents to the for evaluation of abdominal pain after a mechanical fall at 9 AM. Thepatient states her left ankle gave out twice, and she landed directly ontoher stomach. Patient describes the pain as sharp and most pronouncedaround the surgical incision sites. Patient states she ran out of herPercocet for pain control. She endorses associated nausea without emesis. The patient has been evaluated multiple times since her surgery with twoCT scans, and she is currently on a course of amoxicillin. The patient'ssymptoms are made worse with palpation. The umbilical surgical site hasminimal drainage. The patient has not tried anything for her symptoms.The patient denies fever, chills, chest pain, dyspnea, trauma to the head,loss of consciousness, blood thinner usage, neck pain, back pain,diarrhea, constipation, melena, hematochezia, UTI symptoms, hematuria, oradditional complaints.PAST MEDICAL HISTORYDiagnosis Date- Abnormal sensation of left upper and lower extremity 08/07/2013- Anxiety- Arthritis started age 19- Cervical radiculopathy 05/02/2013- Chronic pain 02/12/2015- Depressive disorder, not elsewhere classified 11/28/2011 [facility]- DJD (degenerative joint disease), thoracic- Dysthymic disorder Depression (non-psychotic), sees [facility] Insomnia- Lipomeningocele, sacral level 09/12/2013- Lumbago 02/12/2015- Migraine- Miscarriage- Morbid obesity (HCC) 02/12/2015- Muscle weakness of left lower extremity 08/07/2013- Neck pain 05/02/2013- Neurogenic bladder 02/12/2015- Neurogenic bladder- Neurogenic bowel 01/06/2016- Neuropathy ([facility]) 02/12/2015 post back surgery with secondary infection. Seeing Dr. Gregg- Numbness and tingling of left arm and leg 08/07/2013- Panic attacks- Recurrent UTI 11/28/2011- Spina bifida (HCC) 01/06/2016- Type 2 diabetes mellitus without complication ([facility]) 02/12/2015- Urinary tract infection, site not specified Recurrent UTI's- Ventral hernia without obstruction or gangrene- Weakness of left upper extremity 08/07/2013PAST SURGICAL HISTORYProcedure Laterality Date- 2D ECHO (EXEP) 06/28/2017 EF=65%. nl- DANDC, DIAG AND/OR THERAPEUTIC Dilation AND curettage- PAST SURGICAL HISTORY OF cholecystectomy- PAST SURGICAL HISTORY OF 09/2012 back surgery x2- PAST SURGICAL HISTORY OF Left AND 02/2014 foot x2- PAST SURGICAL HISTORY OF 07/2015 Bowles stoma- STRESS TEST 07/18/2017 normalFAMILY HISTORYProblem Relation Age of Onset- Arthritis Mother- Diabetes Mother- Heart Mother- Hypertension Mother- Lipids Mother- Stroke Mother- Thyroid Mother- Cancer Father Skin- Cancer Maternal Grandmother LIVER CANCER- Cancer Maternal Uncle Great Uncle- Cancer Maternal Uncle Great UncleSocial HistorySocial History Main Topics- Smoking status: Never Smoker- Smokeless tobacco: Never Used- Alcohol use Yes Comment: SOCIALLY- Drug use: No- Sexual activity: Not Currently Partners: Male control/ protection: NoneALLERGIESAllergen Reactions- Mushroom Anaphylaxis- Peanuts Anaphylaxis- Mri Contrast [Gadol* GI UpsetReview of SystemsConstitutional: Negative for activity change, appetite change, chills andfever.Eyes: Negative for photophobia and visual disturbance.Respiratory: Negative for cough and shortness of breath.Cardiovascular: Negative for chest pain, palpitations and leg swelling.Gastrointestina l: Positive for abdominal pain and nausea. Negative forabdominal distention, constipation, diarrhea and vomiting.Genitourinary: Negative for dysuria, flank pain, frequency and hematuria.Musculoskeleta l: Negative for arthralgias, back pain, joint swelling,myalgias, neck pain and neck stiffness.Skin: Negative for rash and wound.Allergic/Immunolog ic: Negative for immunocompromised state.Neurological: Negative for dizziness, weakness, light-headedness, numbnessand headaches.Psychiatric/Be havioral: Negative for suicidal ideas.Physical ExamBP 127/83 Pulse 69 Temp (Src) 97.2 (Oral) Resp 18 Ht 5' 2 (1.58m) Wt 235 lb (106.6kg) SpO2 97% BMI 42.97 kg/(m2).Physical ExamConstitutional: She is oriented to person, place, and time. She appearswell-developed and well-nourished. No distress.HENT:Head: Normocephalic and atraumatic.Right Ear: External ear normal.Left Ear: External ear normal.Mouth/Throat: Oropharynx is clear and moist.Eyes: Conjunctivae and EOM are normal.Neck: Normal range of motion. Neck supple.Cardiovascular: Normal rate, regular rhythm and normal heart sounds. Examreveals no gallop and no friction rub.No murmur heard.Pulmonary/Chest: Effort normal and breath sounds normal. No respiratorydistress. She has no wheezes. She has no rales.Abdominal: Soft. Bowel sounds are normal. She exhibits no distension.There is tenderness. There is no guarding.Musculoskeletal : Normal range of motion. She exhibits no edema, tendernessor deformity.Neurological: She is alert and oriented to person, place, and time. Nocranial nerve deficit or sensory deficit. Coordination normal.Skin: Skin is warm and dry. No rash noted. No erythema. No pallor.Nursing note and vitals reviewed.Diagnostic TestingED Labs Ordered and Reviewed - No data to displayProceduresED Course / Clinical ImpressionClinical Impressions as of Dec 26 1233Contusion of abdominal wall, initial encounterMDM / Disposition / Plan The patient is a 37 year old female with a signficant past medicalhistory of a parastomal hernia repair on 12/11/[address] Bella, whopresents to the ED for evaluation of abdominal pain after a mechanicalfall at 9 AM. The patient was evaluated by myself and the attendingphysician. The patient is hemodynamically stable. The patient appears edwige in no acute distress. Physical exam demonstrates diffuse mild abdominalpain without peritoneal signs. Surgical sites are intact. I do notbelieve the patient requires laboratory studies or imaging at this time,especially because she has had recent CT scans of the abdomen. Thepatient was informed about these findings. The patient was given an icepack, Toradol, and Tylenol prior to discharge. The patient was given aprescription for Tylenol. Follow-up instructions and return precautionswere discussed. All questions were answered. The patient was agreeablewith this plan. The patient was discharged in stable condition.SIGNATURE: Perla Carter (Siena) Shona, HJMqwgpuiu68/01/18 1526Attending NoteI evaluated the patient and personally participated in the peters components. I agree with the resident's findings and plan as documented and havediscussed the case and management of the patient's care with the resident.Signature: HANG Greerate: 12/27/2017Time: 3:55 PMCarocolette Chaudhary MD12/27/17 1555 [facility] ANES Halie 12-12-2017 ANES POST HNO ID: [id number]: Javier Charleservice: AnesthesiologyAuthor Type: PhysicianType: Anesthesia PostOpFiled: 12/12/2017 12:02 AMNote Text:POST ANESTHESIA EVALUATION NOTESERVICE DATE: 12/12/2017SERVICE TIME: 12:02 AMDOB: 1980Vitals: 12/11/1818Temp: 36 ?C (96.8 ?F) 37 ?C (98.6 ?F) 12/12/1819BP: 124/64 117/71 120/63 114/63 12/12/1819Pulse: (!) 55 64 66 77 12/12/1819Resp: 14 20 23 18 12/12/1819SpO2: 97% 98% 97% 100%Validated Vital Signs: YesPOST ANES STATUS: No apparent anesthetic complications. The patient isappropriately hydrated with stable respiratory and cardiovascular status.Patient has safe and adequate airway control. The patient has appropriatepain relief and no significant post operative nausea or vomiting. Thepatient has achieved baseline mental status.Further assessment by Anesthesia Service: NoneOther Remarks:SIGNATURE: Javier Pruett MD PATIENT NAME: Debby BailonDATE: December 12, 2017 : 12:02 AM PAGER/CONTACT #: [phone] [facility] CNDSon 12-12-2017 CNDS HNO ID: [id number]: Naty (Clotilde) TreerskiService: General SurgeryAuthor Type: Nurse PractitionerType: Discharge SummariesFiled: 12/12/2017 3:19 PMNote Text:DISCHARGE SUMMARYPATIENT NAME: Debby BailonMRN: [id number] Information Admission Information ADMIT DATE: 12/11/2017DISCHARGE DATE: 12/12/2017[facility] Doctor: Daniel Novak Care Provider: Kar Sinha Medical Team Members: Treatment Team:Attending Provider: Daniel Leonard CONDITION AT DISCHARGE: StableREASON I WAS IN THE HOSPITAL: Hernia RepairSUMMARY OF WHAT HAPPENED WHILE I WAS IN THE HOSPITAL: On 12/11/17 underwent surgery for repair of parastomal hernia withoutcomplications. She was monitored overnight and has met the postoperativemilestones including toleration of diet without increased abdominal pain,nausea or vomiting. Her pain has been controled with oral medications andis stable for discharge home.OTHER PROBLEMS/DIAGNOSIS:Activ e Problems: S/P hernia repairResolved Problems: * No resolved hospital problems. *OPERATIONS PERFORMED WHILE IN THE HOSPITAL:laparoscopic repair of parastomal herniaIMPORTANT TEST/PROCEDURES:No procedures performedTEST RESULTS NOT AVAILABLE AT THIS TIME:No pending results Discharge Disposition Discharge Disposition: Home With Self CareActivity When You Leave the Hospital Lifting is restricted to: 10-15 pounds May bathe and shower Avoid tubs/pools. Pat area dry and avoid rubbing May use stairs No driving for: While taking narcotic medications or until the ability to make quickmovements without pain No prolonged bedrest, longer than 8 hours in a 24 hour period No walking restrictionsDiet Instructions Regular Carb controlledFor Pain When You Leave the Hospital No alcohol or driving while on pain medication Use the dispensed medication (see prescription) You should use an ryex-uwk-lvkqsvs stool softener (Docusate sodium)and/or a fiber supplement (Metamucil, Fiber Con) every day while takingprescribed pain medicationWound/Surgical Site Care It is normal to have swelling, mild bruising, blood on the steri-strips,numbness and firmness around the incision Some bleeding from the wound/surgical site can be expected. If excessive,see a doctor at once Steri strips can get wet. Let them fall off or remove in: At follow up appointment Wash your hands frequently, especially before touching your incision,after using restroom and before eatingCall Your Doctor If There is an unusual odor from the wound area There is severe pain at the operative site You have lightheadedness, fainting, or confusion You have pain and swelling in your legs, especially if it is only on oneside and not the other You have persistent nausea/vomiting over 24 hours You have persistent or heavy bleeding You have redness, swelling, pus or drainage from the wound You have swollen glands or cold and clammy skin Your temperature is greater than 101FFollow Up Appointments Follow-Up Appointment When: In 2 weeks Patient/Parents to call for appointment?: Yes Daniel [phone] [address] [address] PCP Requested ReferralAdditional Provider to Provider Information:No notes on fileFOLLOW-UP APPOINTMENTS ALREADY SCHEDULED WITH A [facility] PROVIDER:Future AppointmentsDate Time Provider Department [id number]/28/2018 5:40 PM Will NUNEZ [facility]OOSTERDISCHARGE MEDICATION: Current Discharge Medication ListSTART taking these medicationsoxyCODONE-komal taminophen (PERCOCET) 1 tabletTake 1 tablet by mouth every 6 hours as needed.Earliest Fill Date: 12/12/17Qty: 28 tablet Refills: 0Associated Diagnoses:S/P hernia repairCONTINUE these medications which have NOT CHANGEDglimepiride (AMARYL) 4 mgTake 4 mg by mouth daily with breakfast.Qty: 30 tablet Refills: 5atorvastatin (LIPITOR) 10 mgTake 10 mg by mouth once daily.Qty: 30 tablet Refills: 5polyethylene glycol 3350 (MIRALAX, GLYCOLAX) 17 gTake 17 g by mouth once daily.propranolol (INDERAL) 10 mgTake 10 mg by mouth twice daily.Qty: 60 tablet Refills: 5Associated Diagnoses:Migraine without aura and without status migrainosus,not intractable; Paroxysmal SVT (supraventricular tachycardia) (HCC)DULoxetine (CYMBALTA) 30 mgTake 30 mg by mouth once daily.Qty: 30 capsule Refills: 5metFORMIN ER (GLUCOPHAGE XR) 1,000 mgTake 1,000 mg by mouth twice daily.Qty: 120 tablet Refills: 5Associated Diagnoses:Type 2 diabetes mellitus without complication,without long-term current use of insulin ([facility])lisinopril 2.5 mgTake 2.5 mg by mouth once daily.Qty: 30 tablet Refills: 11Associated Diagnoses:Type 2 diabetes mellitus with albuminuria ([facility])oxybutynin ER (DITROPAN XL) 10 mgTake 10 mg by mouth once daily.Qty: 20 tablet Refills: 0gabapentin (NEURONTIN) 300 mgTake 300 mg by mouth three times daily.zolpidem (AMBIEN) 1 tabletTake 1 tablet by mouth as needed.Blood-Glucose Meter (ACCU-CHEK HOPE) miscDispense 1 meter kit. Dx: Other DM Code E13.29Qty: 1 Each Refills: 0Lancets (ACCU-CHEK FASTCLIX) lancetsTest blood sugar 2 times/day. Dx: Other DM Code E13.29 Insulin Use: NoQty: 100 Each Refills: 11blood sugar diagnostic (ACCU-CHEK SMARTVIEW TEST STRIP) test stripTest blood sugar(s) 2 times daily. Dx: Other DM Code E13.29 Insulin: NoQty: 50 Strip Refills: 11!! COMPOUNDED PRESCRIPTIONStoma catheter tube.DX: Qo5.4 and K59.2Qty: 1 Device Refills: 0!! 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); Toe amputation status, left ([facility]);Diabetic ulcer of toe of left foot associated with type 2 diabetesmellitus, with fat layer exposed ([facility])hydrOXYzine pamoate (VISTARIL) 25 mgTake 25 mg by mouth three times daily as needed. Per Counseling CenterRefills: 0!! - Potential duplicate medications found. Please discuss with provider.TIME OF CARE: Discharge Management: I personally spent greater than 30minutes involved in the discharge management of this patient.SIGNATURE: Naty Araiza APRN.BURIAL AGENT PAGER/CONTACT #: [phone]: December 12, 2017TIME: 3:18 PM Normal [facility] Glucose Meteron 12-12-2017 Glucose mass conc 186 mg/dL High 70-99 [facility] Comment on above: Result Comment: VERNON GUALLPA Performed By: #### G LMET ####[address] [address] NURSING PROGon 12-12-2017 Protein mass conc HNO ID: [id number] Author: Margarita (Rn) VERNON Blunt Service: Nursing Author Type: Registered Nurse Type: Nursing Progress Note Filed: 12/12/2017 2:28 PM Note Text: 1425 Transferred on bed to [address] [place] [address] Protein mass conc HNO ID: [id number] Author: Margarita (Rn) VERNON Blunt Service: Nursing Author Type: Registered Nurse Type: Nursing Progress Note Filed: 12/12/2017 2:20 PM Note Text: 1330 Report called to Elena Medina for [address] [place] [address] Room not ready Normal [facility] Protein mass conc HNO ID: [id number] Author: Kimberley (Rn) VERNON Maurice Service: Nursing Author Type: Registered Nurse Type: Nursing Progress Note Filed: 12/12/2017 6:36 AM Note Text: Dr Briceno by to see pt, informed of unable to obtain blood specimen this morning. Normal [facility] Protein mass conc HNO ID: [id number] Author: Kimberley ValdezRn) VERNON Maurice Service: Nursing Author Type: Registered Nurse Type: Nursing Progress Note Filed: 12/12/2017 6:16 AM Note Text: Unsuccessful blood draw attempts by 2 RN's twice each. Pt tolerated well. Normal [facility] PROGRESSon 12-12-2017 Protein mass conc HNO ID: [id number]: Pérez (Siena) KarlypService: General SurgeryAuthor Type: ResidentType: Progress NotesFiled: 12/12/2017 9:23 AMNote Text: Attestation signed by Daniel Bella at 12/12/2017 10:14 AMAttending NoteI personally saw and examined the patient. I reviewed the resident's note. Juan Luisee with the resident's assessment and plan with the following revisionsand/or additions: dc home today if pain controlledSignature: Daniel Bella, MDDate: 12/12/2017Time: 10:14 AM General Surgery Progress NoteSERVICE DATE: 12/12/2017SUBJECTIVE:TA Johnston. POD#1 s/p lap hernia repair. Only tried clear liquids and ambulatedfrom one bed to another. Dilaudid for pain; has not tried PO meds. DeniesN/V, CP, SOB.Tolerating diet DIET CARBOHYDRATE CONTROLLEDOBJECTIVE:Zohra ls:Temp (24hrs), Av.4 ?C (97.6 ?F), Min:36 ?C (96.8 ?F), Max:37 ?C (98.6?F)BP 117/50 Pulse 80 Temp 36.3 ?C (97.3 ?F) (Temporal Artery) Resp18 Ht 157.5 cm (5' 2) Wt 107.5 kg (237 lb) LMP 11/20/2017 SpO2 99% BMI 43.35 kg/m?O2 Therapy: Nasal CannulaIANDO:Date 12/11/17699 - 12/12/17 0612/12/17699 - 12/13/17 0659Shift 2562-0587 5139-1813 1107-4796 24 Hour Total 5751-0539 7632-17937254-2999 24 Hour TotalINTAKE IV 1200 1200 OR Crystalloid intake (mL) 1200 1200 Shift Total 1200 1200OUTPUT Urine 400 400 OR Urine Output 400 400 Blood 25 25 Estimated Blood loss 25 25 Shift Total 425 425Weight (kg) 107.5 107.5 107.5 107.5 107.5 107.5 107.5 107.5MEDICATIONSCurrent Facility-Administered Medications:atorvastatin 10 mg tab(s) (LIPITOR) 10 mg ORAL DAILYDULoxetine 30 mg cap(s) (CYMBALTA) 30 mg ORAL DAILYlisinopril 2.5 mg tab(s) 2.5 mg ORAL DAILYpolyethylene glycol 3350 17 g packet (MIRALAX, GLYCOLAX) 17 g ORAL DAILYpropranolol 10 mg tab(s)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 PM SignedPatient calling to check status of request. Patient said she tests twice dailyfor her meter.Will Brannon MD 12/05/2017 3:52 PM SignedPlease [facility]please call the [facility] and discuss with them that the patient calledrequesting a letter for a duty manager pet. patient sees them for her Anxiety andpanic attacks and if they feel this is a necessity the letter will need to comefrom the treating provider.The following approved medication requests have been transmitted electronically.Signed Prescriptions Disp Refills Blood-Glucose Meter (ACCU-CHEK HOPE) misc 1 Each 0 Sig: Dispense 1 meter kit. Dx: Other DM Code E13.29 Authorizing Provider: WILL BRANNON Lancets (ACCU-CHEK FASTCLIX) lancets 100 Each 11 Sig: Test blood sugar 2 times/day. Dx: Other DM Code E13.29 Insulin Use:No Authorizing Provider: WILL BRANNON blood sugar diagnostic (ACCU-CHEK SMARTVIEW TEST STRIP) test strip 50 Strip 11 Sig: Test blood sugar(s) 2 times daily. Dx: Other DM Code E13.29 Insulin:No Authorizing Provider: WILL BRANNON COMPOUNDED PRESCRIPTION 1 Device 0 Sig: Stoma catheter tube.DX: Qo5.4 and K59.2 Authorizing Provider: WILL BRANNON MDElizabeth Merillat Ma 12/05/2017 4:02 PM [facility] Voicemail at counseling centerPatient advised pcp does not give letters for this and needs to come fromcounselor who manages anziety/panic attacks. Patient is aware that message lefton Dr. Coates voicemail requesting if staff can contact patient if letter is fitmedical necessityChasidy Centeno Quattrocchi [employer] 12/05/2017 5:02 PM [facility] [place] [facility] calling said do not carry stoma catheter and not sure wherepatient will be able to get it from. Phoned patient and let her know pharmacydoes not carry stoma catheter and she said she will call [employer] [place]. Normal [facility] Progress Noteon 11-07-2017 Pvc Loader Authentication Interface Message Text Debby Uvaldo is here for consultation at the request of Will Brannon MDfor: Urologic Problem (Clinic Lpn Discuss Bowles Stoma surgery)History of Presenting Problem:Patient referred by Dr. Bella for problems with her Bowles Stoma. [facility] She developed anumbilical hernia and Dr. Bella would like to fix it and have the stoma relocated.She reports that her bowles stoma has not been working since July or August (wasused to used 1500 cc). Water started leaking out.No urologic history with our practiceHas had multiple febrile utis. Performs CIC through via urethra. Patientreports prior visits with Dr. Sears at [facility]. She would like to continue seeingher. Also has urinary incontinence between caths but only caths 3 times a day.Past Medical History:Past Medical History:Diagnosis Date Anxiety Arthritis Depression Diabetes mellitus type 2 in obese Neurogenic bladder Spina bifida Umbilical herniaPast Surgical History:Procedure Laterality Date LAPAROTOMY N/A 08/14/2015 LAPAROTOMY, BOWEL antegrade continence enema (Bowles) st[facility] ORAllergies:AllergiesAll ergen Reactions Mushroom Extract Complex Swelling Peanut Allergy Hives and Shortness Of BreathMedications:Outpat ient Encounter Prescriptions as of 11/07/2017Medication Sig Dispense Refill zolpidem (AMBIEN) 10 MG tablet Take by mouth at bedtime as needed for Sleep Glimepiride 4 MG TABS Take by mouth atorvastatin (LIPITOR) 10 MG tablet Take 10 mg by mouth daily polyethylene glycol (MIRALAX;GLYCOLAX) powder Take 1 Capful by mouth daily METFORMIN HCL PO Take by mouth GABAPENTIN POTake 300 mg by mouth 3 times daily FLUoxetine HCl (PROZAC PO) Take by mouth oxyCODONE, immediate release, (ROXICODONE) 5 MG IR tablet Take 1 Tab (5 mg) bymouth every 4 hours as needed for Pain Earliest Fill Date: 08/19/15 30 Tab 0 TRAZODONE HCL POTake 100 mg by mouth nightly at bedtimeNo facility-administered encounter medications on file as of 11/07/2017.Family Medical History:History reviewed. No pertinent family history.Social History:Social HistorySocial History Marital status: Spouse name: N/A Number of children: N/A Years of education: N/AOccupational History Not on file.Social History Main Topics Smoking status: Passive Smoke Exposure - Never Smoker Smokeless tobacco: Never Used Alcohol use Not on file Drug use: Unknown Sexual activity: Not on fileOther Topics Concern Not on fileSocial History Narrative No narrative on fileAdditional History Is the patient on a special diet? No Age at toilet training? n/a Per parents, immunizations are up to date. Yes Patient lives with? FatherReview of Systems:Pertinent items are noted in HPI.Physical Examination:Physical ExamVitals: 11/07/17 1455Weight: (!) 107.6 kgGeneral: Well appearing, alertEyes: Pupils equal, conjunctivae normalENT: Ears normal, no nasal dischargeNeck: Neck supple, trachea normalResp: Normal effort, no chest wall deformityAbdomen: Non-tender, no massesMusculoskeletal: No deformity, no edemaNeurologic: Normal sensation, normal strengthSkin: Warm and dry to palpation, no rashGU: bowles stoma visible at umbilicus. Some stool leaking from the umbilicus.Small hernia.Laboratory Testing:No results found for this visit on 11/07/17.Imaging:None todayAssessment & Plan:Debby was seen today for urologic problem.Diagnoses and all orders for this visit:Neurogenic bowelNeurogenic bladderAcute cystitis without hematuriaGeneralized abdominal painDiscussed details with patient. Explained that I could relocated the stoma tothe right side of the abdomen to allow proper healing of the umbilical hernia.We discussed potential risks, including bowel obstruction, loss of the stomafrom devascularization, new hernia at new stoma sight, difficulty, cathing, etc.We discussed risks, benefits, and alternatives of the surgical procedurerecommended today (Bowles Stoma revision), including, but not limited to,bleeding, infection, injury to nearby organs, recurrence, need for furthersurgery, problems with anesthesia, and loss of life. The patient verbalizedunderstanding and wishes to proceed with the above stated procedure. She alsounderstand the risks and benefits of observation or doing nothing. Willcoordinate [facility]. Bella at [facility].Recommended follow up with Dr. Farhat Sears, an adult urologist at [facility] forongoing urologic issues. In the mean time, recommended increasing CIC to every2 to 3 hours.Would not relocate the stoma since her abdominal wall is thick. Explained thestoma limb may not reach through her abdominal wall. Will discuss further withDr. Inman recommended GI consultation regarding abdominal pain and bowel regimen.Yoandy Kelly 2017 [facility] ([facility]) DEBBY MONTEZ ([id number]) 1980 FDate Time Provider Department10/17/17 3:00 PM DANIEL BELLA AGGENS1 During your visit today, we recorded the following information about you: Pulse Blood pressure Weight Height 73/minute 130/82 110 kg 1.575 Yeni Bella MD 10/17/2017 4:47 PM SignedPatient referred by:Fawn Herrera MD[address] [facility] [id number]: This is a new patient consult from Dr. Herrera. 36-year-old female with ahistory of spina bifida and neurogenic bladder. [facility]. She has developed pain at the umbilicus.She has some nausea but no vomiting. She was diagnosed with a bowelobstruction. She has no diarrhea currently. Her pain is in the periumbilicalregion. Other than her Maze procedure she has not had any abdominal surgeries.She has pain when she eats. She is found to have an umbilical hernia..PAST MEDICAL HISTORYDiagnosis Date- Abnormal sensation of left upper and lower extremity 08/07/2013- Anxiety- Arthritis started age 19- Cervical radiculopathy 05/02/2013- Chronic pain 02/12/2015- Depressive disorder, not elsewhere classified 11/28/2011 [facility]- DJD (degenerative joint disease), thoracic- Dysthymic disorder Depression (non-psychotic), [facility] LEAD [facility] Insomnia- Lipomeningocele, sacral level 09/12/2013- Lumbago 02/12/2015- Migraine- Miscarriage- Morbid obesity (HCC) 02/12/2015- Muscle weakness of left lower extremity 08/07/2013- Neck pain 05/02/2013- Neurogenic bladder 02/12/2015- Neurogenic bladder- Neurogenic bowel 01/06/2016- Neuropathy ([facility]) 02/12/2015 post back surgery with secondary infection. Seeing Dr. Gregg- Numbness and tingling of left arm and leg 08/07/2013- Panic attacks- Recurrent UTI 11/28/2011- Spina bifida (HCC) 01/06/2016- Type 2 diabetes mellitus without complication ([facility]) 02/12/2015- Urinary tract infection, site not specified Recurrent UTI's- Weakness of left upper extremity 08/07/2013PAST SURGICAL HISTORYProcedure Laterality Date- 2D ECHO (EXEP) 06/28/2017 EF=65%. nl- DANDC, DIAG AND/OR THERAPEUTIC Dilation AND curettage- PAST SURGICAL HISTORY OF cholecystectomy- PAST SURGICAL HISTORY OF 09/2012 back surgery x2- PAST SURGICAL HISTORY OF Left AND 02/2014 foot x2- PAST SURGICAL HISTORY OF 07/2015 Bowles stoma- STRESS TEST 07/18/2017 normalFAMILY HISTORYProblem Relation Age of Onset- Arthritis Mother- Diabetes Mother- Heart Mother- Hypertension Mother- Lipids Mother- Stroke Mother- Thyroid Mother- Cancer Father Skin- Cancer Maternal Grandmother LIVER CANCER- Cancer Maternal Uncle Great Uncle- Cancer Maternal Uncle Great UncleSocial History Marital status: Spouse name: MEHDI Years of education: 12 Number of children: 0Occupational 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 Insulin: NoDULoxetine (CYMBALTA) 30 mg capsule Take 1 capsule by mouth once daily.metFORMIN ER (GLUCOPHAGE XR) 500 mg 24 hr tablet Take 2 tablets by mouth twicedaily.lisinopril 2.5 mg tablet Take 1 tablet by mouth once daily.oxybutynin ER (DITROPAN XL) 10 mg 24 hr tablet Take 1 tablet by mouth oncedaily.blood sugar diagnostic (FREESTYLE LITE STRIPS) test strip Test blood sugar(s)1-2 times daily. Dx: 250.0. Insulin: NohydrOXYzine pamoate (VISTARIL) 25 mg capsule Take 1 capsule by mouth threetimes daily as needed. Per Counseling CenterBlood-Glucose Meter (FREESTYLE LITE METER) monitoring kit Freestyle LITE MeterKit -gabapentin (NEURONTIN) 300 mg capsule Take 1 capsule by mouth three timesdaily.zolpidem (AMBIEN) 5 mg tablet Take 1 tablet by mouth at bedtime as needed forSedation for up to 60 days. Per Counseling CenterCOMPOUNDED PRESCRIPTION Promogran, use as directed, ulcer of left 1stmetatarsal, measurement: [id number], Dx: E11.621, L97.522 (Patient not taking:Reported on 10/05/2017)No current facility-administered medications for this visit.ALLERGIESAllergen Reactions- Mri Contrast [Gadol* GI Upset- Mushroom Anaphylaxis- Peanuts AnaphylaxisREVIEW OF SYSTEMS:GENERAL: No weight loss, malaise or feversGI: Negative for nausea , vomiting, diarrhea, constipation and signs ofjaundice Positive for abdominal pain PeriumbilicalPHYSICAL EXAM:BP 130/82 Pulse 73 Ht 5' 2 (1.58m) Wt 242 lb 9.6 oz (110.0kg) SpO2 97% BMI 44.36 kg/(m2).GENERAL APPEARANCE: Well appearing, alert, in no acute distress, well-hydrated,well nourished., Overweight.ABDOMEN: Abdomen is soft. There is tenderness at the periumbilical region.There is no rebound or guarding.NEURO: Alert, oriented x3, no asterixis, speech clear and articulate and MAEHEART: regular rate and rhythm, without murmurLUNGS: clear to auscultation, without rales or wheeze, good air exchangeDATA:Diagnostic tests reviewed for today's visit:Most recent imagingA total of 30 minutes was spent in direct patient contact. Greater than 50% ofthe direct patient contact time was spent in counseling or coordination of care.ASSESSMENT / PLAN:1. Incisional hernia with obstruction but no gangreneI reviewed her imaging. This shows evidence of a hernia at her mace exit site.This is containing a loop of small bowel which is likely causing a partialsmall bowel obstruction. Optimal treatment would be surgical correction ofthis. This will likely need to entail relocation of her mace stoma. I will puta consult in the pediatric urology for combined effort.- CONSULT TO KATHARINE UROLOGYNYennifer Cottrell Provider: FAWN HERRERA [[id number]]Allergies As of Date: 10/17/2017 Noted Allergy ReactionMRI CONTRAST (GADOLINIUM-CONTAINI*12/2016 8 - GI UpsetMUSHROOM 06/10/2016 10 - AnaphylaxisPEANUTS 06/10/2016 10 - AnaphylaxisDate Reviewed: 10/17/2017Reviewed by: Daniel Bella - Fully AssessedReason for Visit: New Patient [172]Primary Visit Diagnosis:Incisional hernia with obstruction but no gangrene [K43.0]Order(s):CONSULT TO [facility] [[id number]] Order #: [id number]: 1Prescriptions as of 10/17/2017 Sig: POLYETHYLENE GLYCOL 3350 17 G* Take 17 g by mouth once daily. CIPROFLOXACIN 250 MG TABLET Take 500 mg by mouth twice da* PROPRANOLOL 10 MG TABLET Take 1 tablet by mouth twice * LANCETS 28 GAUGE Test blood sugar(s) 1-2 times* DULOXETINE 30 MG CAPSULE,SHERRY* Take 1 capsule by mouth once * METFORMIN ER 500 MG TABLET,EX* Take 2 tablets by mouth twice* LISINOPRIL 2.5 MG TABLET Take 1 tablet by mouth once d* OXYBUTYNIN CHLORIDE ER 10 MG * Take 1 tablet by mouth once d* BLOOD SUGAR DIAGNOSTIC STRIPS Test blood sugar(s) 1-2 times* HYDROXYZINE PAMOATE 25 MG CAP* Take 1 capsule by mouth three* BLOOD-GLUCOSE METER KIT Freestyle LITE Meter Kit - GABAPENTIN 300 MG CAPSULE Take 1 capsule by mouth three* ZOLPIDEM 5 MG TABLET Take 1 tablet by mouth at bed* COMPOUNDED PRESCRIPTION Promogran, use as directed, u* Patient not taking: Reported on 10/05/2017Problem List As Of Date 10/17/2017 Noted Resolved [...] and lower extr*INVALID FOR*01/06/2016 Priority: D Lipomeningocele ([facility]) [Q05.9] INVALID FOR* Priority: B Lumbago [M54.5] INVALID FOR* Priority: M Neuropathy ([facility]) [G62.9] INVALID FOR* Priority: A More... Morbid obesity ([facility]) [E66.01] INVALID FOR* Priority: B Chronic pain [G89.29] INVALID FOR* Priority: M Neurogenic bladder [N31.9] INVALID FOR* Priority: B Hydronephrosis, right [N13.30] INVALID FOR* Priority: C History of kidney stones [Z87.442] INVALID FOR* Priority: C Spina bifida ([facility]) [Q05.9] INVALID FOR* Priority: B Neurogenic bowel [K59.2] INVALID FOR* Priority: B Primary insomnia [F51.01] INVALID FOR* Priority: A Type 2 diabetes mellitus with proteinuria ([facility])*INVALID FOR* Priority: A Pyelonephritis [N12] INVALID FOR* Diabetic eye exam ([facility]) [Z01.00, E11.9] INVALID FOR* Priority: A More... Migraine without aura and without status migrai*INVALID FOR* Priority: A Type 2 diabetes mellitus with albuminuria ([facility])*INVALID FOR* Priority: A Well adult exam [Z00.00] INVALID FOR* Priority: E More... Ulcer of left foot ([facility]) [L97.529] INVALID FOR* Priority: M Paroxysmal SVT (supraventricular tachycardia) (*INVALID FOR* Priority: A More... Status:Closed by DANIEL BELLA MD on 10/17/17 Normal [facility] PROGRESSon 10-17-2017 Protein mass conc HNO ID: [id number]: Daniel Pedroza: (none)Author Type: PhysicianType: Progress NotesFiled: 10/17/2017 4:47 PMNote Text:Patient referred by:Fawn Herrera MD[address] [place] [address]ATO: This is a new patient consult from Dr. Herrera. 36-year-old female witha history of spina bifida and neurogenic bladder. [facility]. She has developed pain atthe umbilicus. She has some nausea but no vomiting. She was diagnosed witha bowel obstruction. She has no diarrhea currently. Her pain is in theperiumbilical region. Other than her Maze procedure she has not had anyabdominal surgeries. She has pain when she eats. She is found to have anumbilical hernia..PAST MEDICAL HISTORYDiagnosis Date- Abnormal sensation of left upper and lower extremity 08/07/2013- Anxiety- Arthritis started age 19- Cervical radiculopathy 05/02/2013- Chronic pain 02/12/2015- Depressive disorder, not elsewhere classified 11/28/2011 [facility]- DJD (degenerative joint disease), thoracic- Dysthymic disorder Depression (non-psychotic), sees [facility].- Insomnia- Lipomeningocele, sacral level 09/12/2013- Lumbago 02/12/2015- Migraine- Miscarriage- Morbid obesity (HCC) 02/12/2015- Muscle weakness of left lower extremity 08/07/2013- Neck pain 05/02/2013- Neurogenic bladder 02/12/2015- Neurogenic bladder- Neurogenic bowel 01/06/2016- Neuropathy (HCC) 02/12/2015 post back surgery with secondary infection. Seeing Dr. Gregg- Numbness and tingling of left arm and leg 08/07/2013- Panic attacks- Recurrent UTI 11/28/2011- Spina bifida (HCC) 01/06/2016- Type 2 diabetes mellitus without complication ([facility]) 02/12/2015- Urinary tract infection, site not specified Recurrent UTI's- Weakness of left upper extremity 08/07/2013PAST SURGICAL HISTORYProcedure Laterality Date- 2D ECHO (EXEP) 06/28/2017 EF=65%. nl- DANDC, DIAG AND/OR THERAPEUTIC Dilation AND curettage- PAST SURGICAL HISTORY OF cholecystectomy- PAST SURGICAL HISTORY OF 09/2012 back surgery x2- PAST SURGICAL HISTORY OF Left AND 02/2014 foot x2- PAST SURGICAL HISTORY OF 07/2015 Bowles stoma- STRESS TEST 07/18/2017 normalFAMILY HISTORYProblem Relation Age of Onset- Arthritis Mother- Diabetes Mother- Heart Mother- Hypertension Mother- Lipids Mother- Stroke Mother- Thyroid Mother- Cancer Father Skin- Cancer Maternal Grandmother LIVER CANCER- Cancer Maternal Uncle Great Uncle- Cancer Maternal Uncle Great UncleSocial History Marital status: Spouse name: MEHDI Years of education: 12 Number of children: 0Occupational HistoryOccupation Employer 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 Dx: 250.0. Insulin: NoDULoxetine (CYMBALTA) 30 mg capsule Take 1 capsule by mouth once daily.metFORMIN ER (GLUCOPHAGE XR) 500 mg 24 hr tablet Take 2 tablets by mouthtwice daily.lisinopril 2.5 mg tablet Take 1 tablet by mouth once daily.oxybutynin ER (DITROPAN XL) 10 mg 24 hr tablet Take 1 tablet by mouth oncedaily.blood sugar diagnostic (FREESTYLE LITE STRIPS) test strip Test bloodsugar(s) 1-2 times daily. Dx: 250.0. Insulin: NohydrOXYzine pamoate (VISTARIL) 25 mg capsule Take 1 capsule by mouth threetimes daily as needed. [facility] (FREESTYLE LITE METER) monitoring kit Freestyle LITEMeter Kit -gabapentin (NEURONTIN) 300 mg capsule Take 1 capsule by mouth three timesdaily.zolpidem (AMBIEN) 5 mg tablet Take 1 tablet by mouth at bedtime as neededfor Sedation for up to 60 days. [facility] CenterCOMPOUNDED PRESCRIPTION Promogran, use as directed, ulcer of left 1stmetatarsal, measurement: [id number], Dx: E11.621, L97.522 (Patient nottaking: Reported on 10/05/2017)No current facility-administered medications for this visit.ALLERGIESAllergen Reactions- Mri Contrast [Gadol* GI Upset- Mushroom Anaphylaxis- Peanuts AnaphylaxisREVIEW OF SYSTEMS:GENERAL: No weight loss, malaise or feversGI: Negative for nausea , vomiting, diarrhea, constipation and signs ofjaundice Positive for abdominal pain PeriumbilicalPHYSICAL EXAM:BP 130/82 Pulse 73 Ht 5' 2 (1.58m) Wt 242 lb 9.6 oz (110.0kg) SpO2 97% BMI 44.36 kg/(m2).GENERAL APPEARANCE: Well appearing, alert, in no acute distress,well-hydrated, well nourished., Overweight.ABDOMEN: Abdomen is soft. There is tenderness at the periumbilical region.There is no rebound or guarding.NEURO: Alert, oriented x3, no asterixis, speech clear and articulate andMAEHEART: regular rate and rhythm, without murmurLUNGS: clear to auscultation, without rales or wheeze, good air exchangeDATA:Diagnostic tests reviewed for today's visit:Most recent imagingA total of 30 minutes was spent in direct patient contact. Greater than50% of the direct patient contact time was spent in counseling orcoordination of care.ASSESSMENT / PLAN:1. Incisional hernia with obstruction but no gangreneI reviewed her imaging. This shows evidence of a hernia at her mace exitsite. This is containing a loop of small bowel which is likely causing apartial small bowel obstruction. Optimal treatment would be surgicalcorrection of this. This will likely need to entail relocation of her macestoma. I will put a consult in the pediatric urology for combined effort.- CONSULT TO KATHARINE UROLOGAmanda Bella MD Normal [facility] Basic Metabolic Panelon 07-0 Glucose mass conc 183 mg/dL High 70-105 [facility] Comment on above: Order Comment: CBN Performed By: #### B MP ####[place] [id number] BUN/Creatinine Ratio 8 mg/mg Normal 7- [facility] Comment on above: Order Comment: CBN Performed By: #### B MP ####[address] [address] CO2 23 mmol/L Normal 22-29 [facility] Comment on above: Order Comment: CBN Performed By: #### B MP ####[address] [address] Creatinine 1.2 mg/dL Normal 0.6-1.2 [facility] Comment on above: Order Comment: CBN Performed By: #### B MP ####[address] [address] Electrolyte Balance 13.0 mEq/L Normal [facility] Comment on above: Order Comment: CBN Performed By: #### B MP ####[address] [address] Calcium 9.8 mg/dL Normal 8.4-10.2 [facility] Comment on above: Order Comment: CBN Performed By: #### B MP ####[address] [address] Urea nitrogen 10 mg/dL Normal 7-18 [facility] Comment on above: Order Comment: CBN Performed By: #### B MP ####[address] [address] Chloride 105 mmol/L Normal 98-107 [facility] Comment on above: Order Comment: CBN Performed By: #### B MP ####[address] [address] Potassium molar conc 3.7 mmol/L Normal 3.5-5.1 [facility] Comment on above: Order Comment: CBN Performed By: #### B MP ####[address] [address] Sodium 141 mmol/L Normal 136-146 [facility] Comment on above: Order Comment: CBN Performed By: #### B MP ####[address] [address] CBC (AO)on 11-27-2016 Basophils Auto #/vol (Bld) 0.20 10 3/mcL High 0.00-0.19 [facility] Comment on above: Order Comment: CBN Performed By: #### C BCO ####[address] [address] Basophils/100 WBC Auto (Bld) 1.2 % Normal 0.0-2.5 [facility] Comment on above: Order Comment: CBN Performed By: #### C BCO ####[address] [address] Eosinophils 0.30 10 3/mcL Normal 0.00-0.40 [facility] Comment on above: Order Comment: CBN Performed By: #### C BCO ####[address] [address] Eosinophils/100 leukocytes 2.4 % Normal 0.0-7.0 [facility] Comment on above: Order Comment: CBN Performed By: #### C BCO ####[address] [address] Erythrocyte distribution width Auto Ratio (RBC) 14.2 % Normal 11.5-14.5 [facility] Comment on above: Order Comment: CBN Performed By: #### C BCO ####[address] [address] Erythrocytes (RBC) 4.44 10 6/mcL Normal 4.20-5.40 [facility] Comment on above: Order Comment: CBN Performed By: #### C BCO ####[place] [id number] Hematocrit (HCT) 38.1 % Normal 37.0-47.0 [facility] Comment on above: Order Comment: CBN Performed By: #### C BCO ####[place] [id number] Hemoglobin mass conc (Bld) 12.7 G/dL Normal 12.0-16.0 [facility] Comment on above: Order Comment: CBN Performed By: #### C BCO ####[place] [id number] Lymphocytes 4.10 10 3/mcL High 0.77-3.85 [facility] Comment on above: Order Comment: CBN Performed By: #### C BCO ####[place] [id number] Lymphocytes/100 leukocytes 29.9 % Normal 10.0-50.0 [facility] Comment on above: Order Comment: CBN Performed By: #### C BCO ####[place] [id number] MCH 28.5 pg Normal 27.0-31.2 [facility] Comment on above: Order Comment: CBN Performed By: #### C BCO ####[place] [id number] MCHC mass conc (RBC) 33.3 G/dL Normal 33.0-37.0 [facility] Comment on above: Order Comment: CBN Performed By: #### C BCO ####[address] [address] MCV 85.8 fL Normal 80.0-94.0 [facility] Comment on above: Order Comment: CBN Performed By: #### C BCO ####[address] [address] Monocytes 1.30 10 3/mcL High 0.15-1.00 [facility] Comment on above: Order Comment: CBN Performed By: #### C BCO ####[address] [address] Monocytes/100 leukocytes 9.3 % Normal 1.7-13.0 [facility] Comment on above: Order Comment: CBN Performed By: #### C BCO ####[address] [address] Neutrophils 7.90 10 3/mcL High 2.85-6.16 [facility] Comment on above: Order Comment: CBN Performed By: #### C BCO ####[address] [address] Neutrophils/100 WBC Auto (Bld) 57.2 % Normal 37.0-80.0 [facility] Comment on above: Order Comment: CBN Performed By: #### C BCO ####[address] [address] Platelet mean volume (PMV) 9.7 fL Normal 7.4-10.4 [facility] Comment on above: Order Comment: CBN Performed By: #### C BCO ####[address] [address] Platelets 224 10 3/mcL Normal 130-400 [facility] Comment on above: Order Comment: CBN Performed By: #### C BCO ####[address] [address] WBC (Leukocytes) 13.90 10 3/mcL High 4.60-10.80 [facility] Comment on above: Order Comment: CBN Performed By: #### C BCO ####[address] [address] [address] ABDOMEN/PELVIS W/O CONTRA STon 11-27-2016 CT ABDOMEN/PELVIS W/O CONTRAST ORIGINALClinical history: Right flank pain COMPARISON: None. Axial scans were obtained through the abdomen and pelvis. Intravenous and enteric contrast were not given for this examination. Scans were reviewed in axial, coronal, and sagittal planes of reconstruction. This exam was performed according to our departmental dose optimization program, and includes the following measures where applicable: automated exposure control, adjustment of the mAs and/or kVp according to patient size and/or exam, and an iterative reconstruction algorithm.. No acute abnormality is present at the lung bases. The liver appears normal. The gallbladder is not seen and has presumably been removed. There is no biliary ductal dilatation. The pancreas, spleen, adrenal glands, abdominal aorta, and inferior vena cava show no sign of acute abnormality within the limits of this noncontrast enhanced scan. The kidneys are normal in size. There is no hydronephrosis or nephrolithiasis. No ureteral stone or obstruction is present. A single air bubble is located in the collecting system in the upper half of the right kidney. There is mild perinephric stranding suggesting inflammation. There is no sign of intestinal obstruction or inflammation. No abdominal mass or abnormal fluid collection is present. Periumbilical ostomy is noted without evidence of complication. There is no pelvic mass or abnormal fluid collection. A Cook catheter is in place in the urinary bladder. There are no stones in the urinary bladder. 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 IMPRESSION: Minimal air in the collecting system in the upper half the right kidney. This is highly suspicious for infection. Mild perinephric stranding of the right kidney is a sign of inflammation as well. There is no hydronephrosis or nephrolithiasis. Periumbilical ostomy without signs of complication. Interpreted By: Oc Mae MDPreliminary Report By: Oc Mae MDElectronically Signed By: Oc Mae MD Dictated Date: 11/27/2016 2:13:41 AM Prelim Date: 11/27/2016 2:13:41 AM Sign Date: 11/27/2016 2:20:29 AM Normal [facility] Glomerular Filtration Rate E stimateon 11-27-2016 eGFR (non-black) mL/min/{1.73_m2} Normal [facility] Comment on above: Order Comment: CBN Result Comment: Popu latcandelaria mean GFR = 107 mL/min/1.73 sq.m. for ages 30-39 years. Chronic Kidney Disease: Less than 60 mL/min/1.73 square metersEnd Stage Renal Disease: Less than 15 mL/min/1.73 square meters Performed By: #### G FR ####[place] [address] eGFR (non-black) 51 mL/min/1.73m 2 Normal A [facility] Comment on above: Order Comment: CBN Performed By: #### G FR ####[address] [address] [place] [facility] Note on 11-27-2016 [place] [facility] Note Normal [facility] Patient Summary Documentson 11-27-2016 Patient Summary Documents Normal [facility] test (u)on 017 test (u) Negative Normal [facility] Comment on above: Order Comment: CBN Result Comment: HCG not detected. Performed By: #### P REGU ####[address] [address] Urinalysis (AO)on 11-27-2016 Ca Oxalate Crystals TRACE Normal [facility] Comment on above: Order Comment: CBN Performed By: #### U AO ####[place] [address] Erythrocytes (RBC) 5-10 Abnormal NONE SEEN [facility] Comment on above: Order Comment: CBN Performed By: #### U AO ####[address] [address] Squamous Epi 0-5 Abnormal NONE SEEN [facility] Comment on above: Order Comment: CBN Performed By: #### U AO ####[address] [address] Urine, bacteria in sediment TRACE Abnormal NEGATIVE [facility] Comment on above: Order Comment: CBN Performed By: #### U AO ####[address] [address] WBC (Leukocytes) 5-10 Abnormal NONE SEEN [facility] Comment on above: Order Comment: CBN Performed By: #### U AO ####[address] [address] Bilirubin (total) Negative Normal NEGATIVE [facility] Comment on above: Order Comment: CBN Performed By: #### U AO ####[address] [address] Glucose mass conc 100 mg/dL Abnormal NEGATIVE [facility] Comment on above: Order Comment: CBN Performed By: #### U AO ####[address] [address] Hemoglobin mass conc (Bld) SMALL Abnormal NEG - TRACE [facility] Comment on above: Order Comment: CBN Performed By: #### U AO ####[address] [address] pH of blood 6.0 [pH] Normal 5.0 - 8.0 [facility] Comment on above: Order Comment: CBN Performed By: #### U AO ####[address] [address] Protein 30 mg/dL Abnormal NEG - TRACE [facility] Comment on above: Order Comment: CBN Performed By: #### U AO ####[place] [address] [address] Urine, appearance CLEAR Normal CLEAR [facility] Comment on above: Order Comment: CBN Performed By: #### U AO ####[place] [address] Urine, color YELLOW Normal [facility] Comment on above: Order Comment: CBN Performed By: #### U AO ####[place] [address] Urine, ketones presence Negative Normal NEGATIVE A [facility] Comment on above: Order Comment: CBN Performed By: #### U AO ####[place] [address] Urine, nitrite presence Negative Normal NEGATIVE A [facility] Comment on above: Order Comment: CBN Performed By: #### U AO ####[place] [address] Urine, specific gravity >=1.030 Abnormal 1.01 5-1.02 5 [facility] Comment on above: Order Comment: CBN Performed By: #### U AO ####[place] [address] Urine, urobilinogen 0.2 {Donato'U}/dL Normal NORMAL [facility] Comment on above: Order Comment: CBN Performed By: #### U AO ####[place] [address] WBC (Leukocytes) TRACE Abnormal NEGATIVE [facility] Comment on above: Order Comment: CBN Performed By: #### U AO ####[place] [address] Specimen type (u) VOID Normal [facility] Comment on above: Order Comment: CBN Performed By: #### U AO ####[place] [address] Bacteria identified Cx Nom ( Wound) Wound Culture Streptococcus agalac tiae (B) [facility] Work Phone: Culture, urine Bacteria identified Cx Nom (U) Serratia rubidaea [facility] Work Phone: Bacteria identified Cx Nom (U) Stenotrophomonas maltophilia [facility] Work Phone: Bacteria identified Cx Nom (U) Atopobium vaginae [facility] Work Phone: Bacteria identified Cx Nom (U) Streptococcus agalactiae (B) [facility] Work Phone: Bacteria identified Cx Nom (U) Staphylococcus epidermidis [facility] Work Phone: Bacteria identified Cx Nom (U) Pseudomonas putida [facility] Work Phone: Bacteria identified Cx Nom (U) Staphylococcus aureus [facility] Work Phone: Bacteria identified Cx Nom (U) Staphylococcus haemolyticus [facility] Work Phone: Gram stain for investigation of transfusion reaction Microscopic observation Gram stain Nom (Unsp spec) [facility] Work Phone: Laboratory - Microbiology an d Antimicrobial susceptibility Bacteria identified Cx Nom (Bld) No growth in 5 days. [facility] Work Phone: Vital Signs Date Time Vital Sign Value Performing Clinician Facility 08-16-2024 18:38-0400 Body temperature 97.8 [degF] Dr. Will Brannon MD Work Phone: [facility] 08-16-2024 18:38-0400 Diastolic blood pressure 85 mm[Hg] Dr. Will Brannon MD Work Phone: [facility] 08-16-2024 18:38-0400 Heart rate 82 /min Dr. Will Brannon MD Work Phone: [facility] 08-16-2024 18:38-0400 Respiratory rate 16 /min Dr. Will Brannon MD Work Phone: 2(696)121-158258 [place] [address] 08-16-2024 18:38-0400 SaO2% (BldA) [Mass fraction] 100 % Dr. Will Brannon MD Work Phone: 1(358)093-394358 [place] [address] 08-16-2024 18:38-0400 Systolic blood pressure 125 mm[Hg] Dr. Will Brannon MD Work Phone: 1(455)849-194458 [place] [address] 08-16-2024 14:31-0400 Body temperature 97.9 [degF] Dr. Will Brannon MD Work Phone: 8(808)530-754558 [place] [address] 08-16-2024 14:31-0400 Diastolic blood pressure 76 mm[Hg] Dr. Will Brannon MD Work Phone: 9(858)740-165958 [place] [address] 08-16-2024 14:31-0400 Heart rate 89 /min Dr. Will Brannon MD Work Phone: 8(981)397-259458 [place] [address] 08-16-2024 14:31-0400 Respiratory rate 16 /min Dr. Will Brannon MD Work Phone: 3(358)872-602758 [place] [address] 08-16-2024 14:31-0400 SaO2% (BldA) [Mass fraction] 98 % Dr. Will Brannon MD Work Phone: 6(389)177-102658 [place] [address] 08-16-2024 14:31-0400 Systolic blood pressure 114 mm[Hg] Dr. Will Brannon MD Work Phone: 4(455)531-510758 [place] [address] 08-16-2024 08:44-0400 Inhaled oxygen flow rate 2 L/min Dr. Will Brannon MD Work Phone: 1(565)583-934358 [place] [address] 08-16-2024 07:55-0400 Body height 154.[address] Will Brannon MD Work Phone: 8(201)850-769758 [place] [address] 08-16-2024 07:55-0400 Body mass index (BMI) [Ratio] 44.6 kg/m2 Dr. Will Brannon MD Work Phone: 0(914)695-338458 [place] [address] 08-16-2024 07:55-0400 Body weight 107.[address] Will Brannon MD Work Phone: 7(406)471-800129 [place] [address] 08-11-2024 23:30-0400 Diastolic blood pressure 77 mm[Hg] Dr. Will Brannon MD Work Phone: 1(199)127-372558 [place] [address] 08-11-2024 23:30-0400 Heart rate 101 /min Dr. Will Brannon MD Work Phone: 3(508)106-993758 [place] [address] 08-11-2024 23:30-0400 Inhaled oxygen flow rate 2 L/min Dr. Will Brannon MD Work Phone: 4(083)079-933358 [place] [address] 08-11-2024 23:30-0400 Respiratory rate 27 /min Dr. Will Brannon MD Work Phone: 9(084)296-329858 [place] [address] 08-11-2024 23:30-0400 SaO2% (BldA) [Mass fraction] 100 % Dr. Will Brannon MD Work Phone: 9(734)607-515458 [place] [address] 08-11-2024 23:30-0400 Systolic blood pressure 116 mm[Hg] Dr. Will Brannon MD Work Phone: 4(615)197-315158 [place] [address] 08-11-2024 23:09-0400 Body temperature 100.1 [degF] Dr. Will Brannon MD Work Phone: 1(059)327-139758 [place] [address] 08-11-2024 21:29-0400 Body mass index (BMI) [Ratio] 41.6 kg/m2 Dr. Will Brannon MD Work Phone: 0(591)827-200358 [place] [address] 08-11-2024 21:29-0400 Body weight [address] Will Brannon MD Work Phone: 1(322)850-425658 [place] [address] 08-11-2024 21:26-0400 Body height 154.[address] Will Brannon MD Work Phone: 5(333)322-103958 [place] [address] 07-31-2024 19:21-0500 Body temperature 99.3 [degF] Dr. Will Brannon MD Work Phone: 7(055)681-457658 [place] [address] 07-31-2024 19:21-0500 Diastolic blood pressure 80 mm[Hg] Dr. Will Brannon MD Work Phone: 6(093)333-361758 [place] [address] 07-31-2024 19:21-0500 Heart rate 86 /min Dr. Will Brannon MD Work Phone: 4(742)457-572558 [place] [address] 07-31-2024 19:21-0500 Respiratory rate 22 /min Dr. Will Brannon MD Work Phone: 8(544)477-238158 [place] [address] 07-31-2024 19:21-0500 SaO2% (BldA) [Mass fraction] 96 % Dr. Will Brannon MD Work Phone: 0(265)376-218458 [place] [address] 07-31-2024 19:21-0500 Systolic blood pressure 103 mm[Hg] Dr. Will Brannon MD Work Phone: 6(548)040-445158 [place] [address] 07-31-2024 18:05-0500 Body mass index (BMI) [Ratio] 42.9 kg/m2 Dr. Will Brannon MD Work Phone: 3(421)057-169058 [place] [address] 07-31-2024 18:05-0500 Body weight [address] Will Brannon MD Work Phone: 4(334)672-287358 [place] [address] 07-11-2024 22:57-0500 Body temperature 98.5 [degF] Dr. Will Brannon MD Work Phone: 0(564)226-937758 [place] [address] 07-11-2024 22:57-0500 Diastolic blood pressure 79 mm[Hg] Dr. Will Brannon MD Work Phone: 7(691)864-043958 [place] [address] 07-11-2024 22:57-0500 Heart rate 85 /min Dr. Will Brannon MD Work Phone: 7(787)877-553858 [place] [address] 07-11-2024 22:57-0500 Respiratory rate 16 /min Dr. Will Brannon MD Work Phone: 9(436)761-846958 [place] [address] 07-11-2024 22:57-0500 SaO2% (BldA) [Mass fraction] 96 % Dr. Will Brannon MD Work Phone: 4(942)022-919858 [place] [address] 07-11-2024 22:57-0500 Systolic blood pressure 129 mm[Hg] Dr. Will Brannon MD Work Phone: [facility] 07-11-2024 18:21-0500 Body mass index (BMI) [Ratio] 41.5 kg/m2 Dr. Will Brannon MD Work Phone: [facility] 07-11-2024 18:21-0500 Body weight 99.[address] Will Brannon MD Work Phone: [facility] 07-11-2024 16:05-0500 Body mass index (BMI) [Ratio] 40.59 kg/m2 Devin George APPLICATION SUPPORT DEVELOPER.BURIAL AGENT Work Phone: [facility] 07-11-2024 16:05-0500 Body weight 100.7 kg Devin George APPLICATION SUPPORT DEVELOPER.BURIAL AGENT Work Phone: [facility] 07-11-2024 16:05-0500 Diastolic blood pressure 85 mm[Hg] Devin George APPLICATION SUPPORT DEVELOPER.BURIAL AGENT Work Phone: [facility] 07-11-2024 16:05-0500 Heart rate 93 /min Devin George APPLICATION SUPPORT DEVELOPER.BURIAL AGENT Work Phone: [facility] 07-11-2024 16:05-0500 Systolic blood pressure 132 mm[Hg] Devin George APPLICATION SUPPORT DEVELOPER.BURIAL AGENT Work Phone: [facility] 07-09-2024 15:55-0500 Body mass index (BMI) [Ratio] 40.37 kg/m2 Araceli Sernaer PA-C Work Phone: [facility] 07-09-2024 15:55-0500 Body weight 100.15 kg Araceli Sernaer PA-C Work Phone: [facility] 07-09-2024 15:55-0500 Diastolic blood pressure 88 mm[Hg] Araceli Sernaer PA-C Work Phone: [facility] 07-09-2024 15:55-0500 Heart rate 69 /min Araceli Sernaer PA-C Work Phone: [facility] 07-09-2024 15:55-0500 SaO2% (BldA) [Mass fraction] 100 % Araceli Torres PA-C Work Phone: 4(630)537-200348 [place] [address] 07-09-2024 15:55-0500 Systolic blood pressure 122 mm[Hg] Araceli Torres PA-C Work Phone: 3(201)656-258665 [place] [address] 06-13-2024 01:45-0500 Body temperature 98.4 [degF] Dr. Will Brannon MD Work Phone: 8(726)901-916358 [place] [address] 06-13-2024 01:45-0500 Diastolic blood pressure 89 mm[Hg] Dr. Will Brannon MD Work Phone: 5(125)366-681658 [place] [address] 06-13-2024 01:45-0500 Heart rate 89 /min Dr. Will Brannon MD Work Phone: 4(778)428-564758 [place] [address] 06-13-2024 01:45-0500 Respiratory rate 18 /min Dr. Will Brannon MD Work Phone: 1(128)482-997058 [place] [address] 06-13-2024 01:45-0500 SaO2% (BldA) [Mass fraction] 99 % Dr. Will Brannon MD Work Phone: 3(297)603-132958 [place] [address] 06-13-2024 01:45-0500 Systolic blood pressure 142 mm[Hg] Dr. Will Brannon MD Work Phone: 6(535)312-138958 [place] [address] 06-12-2024 22:50-0500 Body mass index (BMI) [Ratio] 41.4 kg/m2 Dr. Will Brannon MD Work Phone: 7(801)856-050558 [place] [address] 06-12-2024 22:50-0500 Body weight 99.[address] Will Brannon MD Work Phone: 2(779)089-945058 [place] [address] 06-09-2024 04:23-0500 Body temperature 97.7 [degF] Dr. Will Brannon MD Work Phone: 4(038)367-190558 [place] [address] 06-09-2024 04:23-0500 Diastolic blood pressure 89 mm[Hg] Dr. Will Brannon MD Work Phone: [facility] 06-09-2024 04:23-0500 Heart rate 57 /min Dr. Will Brannon MD Work Phone: [facility] 06-09-2024 04:23-0500 Respiratory rate 18 /min Dr. Will Brannon MD Work Phone: [facility] 06-09-2024 04:23-0500 SaO2% (BldA) [Mass fraction] 98 % Dr. Will Brannon MD Work Phone: 2(675)950-880229 [place] [address] 06-09-2024 04:23-0500 Systolic blood pressure 126 mm[Hg] Dr. Will Brannon MD Work Phone: 5(994)519-099858 [place] [address] 06-09-2024 00:26-0500 Body mass index (BMI) [Ratio] 42.2 kg/m2 Dr. Will Brannon MD Work Phone: 0(217)085-702529 [place] [address] 06-09-2024 00:26-0500 Body weight 101.[address] Will Brannon MD Work Phone: 4(495)749-226829 [place] [address] 06-02-2024 01:46-0500 Diastolic Blood Pressure Non-Invasive 86 mm[Hg] SOLEDAD VARGAS MD [facility] 06-02-2024 01:46-0500 Heart rate 78 /min SOLEDAD VARGAS MD [facility] 06-02-2024 01:46-0500 Reason For Taking VItal Signs SOLEDAD VARGAS MD [facility] 06-02-2024 01:46-0500 Respiratory rate 18 /min SOLEDAD VARGAS MD [facility] 06-02-2024 01:46-0500 Systolic Blood Pressure Non-Invasive 124 mm[Hg] SOLEDAD VARGAS MD [facility] 06-02-2024 00:27-0500 Body temperature 98.78 [degF] SOLEDAD VARGAS MD [facility] 06-02-2024 00:27-0500 Diastolic Blood Pressure Non-Invasive 53 mm[Hg] SOLEDAD VARGAS MD [facility] 06-02-2024 00:27-0500 Heart rate 101 /min SOLEDAD VARGAS MD [facility] 06-02-2024 00:27-0500 Respiratory rate 20 /min SOLEDAD VARGAS MD [facility] 06-02-2024 00:27-0500 Systolic Blood Pressure Non-Invasive 128 mm[Hg] SOLEDAD VARGAS MD [facility] 04-10-2024 15:52-0500 Body mass index (BMI) [Ratio] 39.86 kg/m2 Will Brannon MD Work Phone: [facility] 04-10-2024 15:52-0500 Body weight 98.88 kg Will Brannon MD Work Phone: [facility] 04-10-2024 15:52-0500 Diastolic blood pressure 74 mm[Hg] Will Brannon MD Work Phone: [facility] 04-10-2024 15:52-0500 Heart rate 88 /min Will Brannon MD Work Phone: [facility] 04-10-2024 15:52-0500 Respiratory rate 18 /min Will Brannon MD Work Phone: [facility] 04-10-2024 15:52-0500 Systolic blood pressure 114 mm[Hg] Will Brannon MD Work Phone: [facility] 04-06-2024 23:45-0500 Body temperature 98.24 [degF] NIDAL CHOUJAA DO [facility] 04-06-2024 23:45-0500 Diastolic Blood Pressure Non-Invasive 63 mm[Hg] NIDAL CHOUJAA DO [facility] 04-06-2024 23:45-0500 Heart rate 90 /min NIDAL CHOUJAA DO [facility] 04-06-2024 23:45-0500 Respiratory rate 18 /min NIDAKHIL CHOUJAA DO [facility] 04-06-2024 23:45-0500 Systolic Blood Pressure Non-Invasive 130 mm[Hg] TYLER CHOUJAA DO [facility] 03-25-2024 09:36-0400 Diastolic blood pressure 61 mm[Hg] Xavier Josue MD Work Phone: [facility] 03-25-2024 09:36-0400 Systolic blood pressure 116 mm[Hg] Xavier Josue MD Work Phone: [facility] 03-25-2024 09:06-0400 Heart rate 92 /min Xavier Josue MD Work Phone: [facility] 03-25-2024 09:06-0400 SaO2% (BldA) [Mass fraction] 94 % Xavier Josue MD Work Phone: [facility] 03-25-2024 08:29-0400 Body mass index (BMI) [Ratio] 39.67 kg/m2 Xavier Josue MD Work Phone: [facility] 03-25-2024 08:29-0400 Body temperature 98.1 [degF] Xavier Josue MD Work Phone: [facility] 03-25-2024 08:29-0400 Body weight 98.4 kg Xavier Josue MD Work Phone: [facility] 03-25-2024 08:29-0400 Respiratory rate 16 /min Xavier Josue MD Work Phone: [facility] 03-21-2024 14:41-0400 Body mass index (BMI) [Ratio] 40.5 kg/m2 Jos Alexander MD Work Phone: [facility] 03-21-2024 14:41-0400 Body temperature 98.01 [degF] Jos Alexander MD Work Phone: [facility] 03-21-2024 14:41-0400 Body weight 100.47 kg Jos Alexander MD Work Phone: [facility] 03-21-2024 14:41-0400 Diastolic blood pressure 82 mm[Hg] Jos Alexander MD Work Phone: [facility] 03-21-2024 14:41-0400 Heart rate 77 /min Jos Alexander MD Work Phone: [facility] 03-21-2024 14:41-0400 SaO2% (BldA) [Mass fraction] 98 % Jos Alexander MD Work Phone: [facility] 03-21-2024 14:41-0400 Systolic blood pressure 127 mm[Hg] Jos Alexander MD Work Phone: [facility] 03-04-2024 14:58-0400 Body height 157.5 cm Xavier Josue MD Work Phone: [facility] 03-04-2024 14:58-0400 Body mass index (BMI) [Ratio] 39.68 kg/m2 Xavier Josue MD Work Phone: [facility] 03-04-2024 14:58-0400 Body temperature 97.11 [degF] Xavier Josue MD Work Phone: [facility] 03-04-2024 14:58-0400 Body weight 98.43 kg Xavier Josue MD Work Phone: [facility] 03-04-2024 14:58-0400 Diastolic blood pressure 88 mm[Hg] Xavier oJsue MD Work Phone: [facility] 03-04-2024 14:58-0400 Heart rate 127 /min Xavier Josue MD Work Phone: [facility] Comment on above: Rechecked pulse- 98 03-04-2024 14:58-0400 SaO2% (BldA) [Mass fraction] 96 % Xavier Josue MD Work Phone: [facility] 03-04-2024 14:58-0400 Systolic blood pressure 118 mm[Hg] Xavier Josue MD Work Phone: [facility] 02-26-2024 00:15-0400 Heart rate 91 /min MARTIN CHAHAL MD [facility] 02-25-2024 23:23-0400 Blood Pressure Cuff Size MARTIN CHAHAL MD [facility] 02-25-2024 23:23-0400 Blood Pressure Location MARTIN CHAHAL MD [facility] 02-25-2024 23:23-0400 Blood Pressure Method MARTIN CHAHAL MD [facility] 02-25-2024 23:23-0400 Body height 155 cm MARTIN CHAHAL MD [facility] 02-25-2024 23:23-0400 Body temperature 100.04 [degF] MARTIN CHAHAL MD [facility] 02-25-2024 23:23-0400 Body weight 99 kg MARTIN CHAHAL MD [facility] 02-25-2024 23:23-0400 Diastolic Blood Pressure Non-Invasive 79 mm[Hg] MARTIN CHAHAL MD [facility] 02-25-2024 23:23-0400 Heart rate 99 /min MARTIN CHAHAL MD [facility] 02-25-2024 23:23-0400 Respiratory rate 20 /min MARTIN CHAHAL MD [facility] 02-25-2024 23:23-0400 Systolic Blood Pressure Non-Invasive 139 mm[Hg] MARTIN CHAHAL MD [facility] 02-02-2024 23:41-0400 Body height 155 cm LUDWIG MAYER DO [facility] 02-02-2024 23:41-0400 Body temperature 99.14 [degF] LUDWIG MAYER DO [facility] 02-02-2024 23:41-0400 Body weight 98.8 kg LUDWIG MAYER DO [facility] 02-02-2024 23:41-0400 Diastolic Blood Pressure Non-Invasive 91 mm[Hg] LUDWIG GRACET [facility] 02-02-2024 23:41-0400 Heart rate 83 /min LUDWIG MAYER DO [facility] 02-02-2024 23:41-0400 Respiratory rate 18 /min LUDWIG MAYER DO [facility] 02-02-2024 23:41-0400 Systolic Blood Pressure Non-Invasive 134 mm[Hg] LUDWIG MAYER DO [facility] 01-03-2024 16:08-0400 Body mass index (BMI) [Ratio] 39.74 kg/m2 Araceli Torres PA-C Work Phone: [facility] 01-03-2024 16:08-0400 Body weight 96.71 kg Araceli Torres PA-C Work Phone: [facility] 01-03-2024 16:08-0400 Diastolic blood pressure 78 mm[Hg] Araceli Torres PA-C Work Phone: [facility] 01-03-2024 16:08-0400 Heart rate 90 /min Araceli Torres PA-C Work Phone: [facility] 01-03-2024 16:08-0400 Respiratory rate 16 /min Araceli Torres PA-C Work Phone: [facility] 01-03-2024 16:08-0400 SaO2% (BldA) [Mass fraction] 98 % Araceli Torres PA-C Work Phone: [facility] 01-03-2024 16:08-0400 Systolic blood pressure 110 mm[Hg] Araceli Torres PA-C Work Phone: [facility] 12-06-2023 10:22-0400 Body height 154.9 cm Nilda Cioce APPLICATION SUPPORT DEVELOPER.BURIAL AGENT Work Phone: [facility] 12-06-2023 10:22-0400 Body mass index (BMI) [Ratio] 40.36 kg/m2 Nilda Cioce APPLICATION SUPPORT DEVELOPER.BURIAL AGENT Work Phone: [facility] 12-06-2023 10:22-0400 Body weight 96.89 kg Nilda Cioce APPLICATION SUPPORT DEVELOPER.BURIAL AGENT Work Phone: [facility] 12-06-2023 10:22-0400 Diastolic blood pressure 64 mm[Hg] Nilda Cioce APPLICATION SUPPORT DEVELOPER.BURIAL AGENT Work Phone: [facility] 12-06-2023 10:22-0400 Heart rate 80 /min Nilda Cioce APPLICATION SUPPORT DEVELOPER.BURIAL AGENT Work Phone: [facility] 12-06-2023 10:22-0400 Respiratory rate 20 /min Nilda Cioce APPLICATION SUPPORT DEVELOPER.BURIAL AGENT Work Phone: [facility] 12-06-2023 10:22-0400 SaO2% (BldA) [Mass fraction] 98 % Nilda Cioce APPLICATION SUPPORT DEVELOPER.BURIAL AGENT Work Phone: [facility] 12-06-2023 10:22-0400 Systolic blood pressure 112 mm[Hg] Nilda Underwood APPLICATION SUPPORT DEVELOPER.BURIAL AGENT Work Phone: [facility] 12-05-2023 16:49-0400 Body height 154.9 cm Cory Box PA-C Work Phone: [facility] 12-05-2023 16:49-0400 Body mass index (BMI) [Ratio] 40.25 kg/m2 Cory Box PA-C Work Phone: [facility] 12-05-2023 16:49-0400 Body temperature 97.7 [degF] Cory Box PA-C Work Phone: [facility] 12-05-2023 16:49-0400 Body weight 96.62 kg Cory Box PA-C Work Phone: [facility] 12-05-2023 16:49-0400 Diastolic blood pressure 82 mm[Hg] Cory Box PA-C Work Phone: [facility] 12-05-2023 16:49-0400 Heart rate 108 /min Cory Box PA-C Work Phone: [facility] 12-05-2023 16:49-0400 Respiratory rate 16 /min Cory Box PA-C Work Phone: [facility] 12-05-2023 16:49-0400 SaO2% (BldA) [Mass fraction] 99 % Cory Box PA-C Work Phone: [facility] 12-05-2023 16:49-0400 Systolic blood pressure 120 mm[Hg] Cory Box PA-C Work Phone: [facility] 12-04-2023 16:00-0400 Body mass index (BMI) [Ratio] 40.25 kg/m2 Devin George APPLICATION SUPPORT DEVELOPER.BURIAL AGENT Work Phone: [facility] 12-04-2023 16:00-0400 Body weight 96.62 kg Devin George APPLICATION SUPPORT DEVELOPER.BURIAL AGENT Work Phone: [facility] 12-04-2023 16:00-0400 Diastolic blood pressure 79 mm[Hg] Devin Knoble APPLICATION SUPPORT DEVELOPER.BURIAL AGENT Work Phone: [facility] 12-04-2023 16:00-0400 Heart rate 89 /min Devin Litzyoble APPLICATION SUPPORT DEVELOPER.BURIAL AGENT Work Phone: [facility] 12-04-2023 16:00-0400 Respiratory rate 16 /min Devin Knoble APPLICATION SUPPORT DEVELOPER.BURIAL AGENT Work Phone: [facility] 12-04-2023 16:00-0400 Systolic blood pressure 119 mm[Hg] Devin Knoble APPLICATION SUPPORT DEVELOPER.BURIAL AGENT Work Phone: [facility] 11-22-2023 10:41-0400 Body temperature 98.06 [degF] KRISTOFER LARKIN MD [facility] 11-22-2023 10:41-0400 Diastolic Blood Pressure Non-Invasive 65 mm[Hg] KRISTOFER LARKIN MD [facility] 11-22-2023 10:41-0400 Heart rate 87 /min KRISTOFER LARKIN MD [facility] 11-22-2023 10:41-0400 Respiratory rate 16 /min KRISTOFER LARKIN MD [facility] 11-22-2023 10:41-0400 Systolic Blood Pressure Non-Invasive 98 mm[Hg] KRISTOFER LARKIN MD [facility] 11-22-2023 06:50-0400 Body temperature 98.06 [degF] KRISTOFER LARKIN MD [facility] 11-22-2023 06:50-0400 Diastolic Blood Pressure Non-Invasive 67 mm[Hg] KRISTOFER LARKIN MD [facility] 11-22-2023 06:50-0400 Heart rate 70 /min KRISTOFER LARKIN MD [facility] 11-22-2023 06:50-0400 Respiratory rate 16 /min KRISTOFER LARKIN MD [address] [place] [address] 11-22-2023 06:50-0400 Systolic Blood Pressure Non-Invasive 98 mm[Hg] KRISTOFER LARKIN MD [address] [place] [address] 11-22-2023 01:39-0400 Diastolic Blood Pressure Non-Invasive 67 mm[Hg] KRISTOFER LARKIN MD [address] [place] [address] 11-22-2023 01:39-0400 Heart rate 84 /min KRISTOFER LARKIN MD [address] [place] [address] 11-22-2023 01:39-0400 Systolic Blood Pressure Non-Invasive 103 mm[Hg] KRISTOFER LARKIN MD [address] [place] [address] 11-21-2023 22:50-0400 Body temperature 98.42 [degF] KRISTOFER LARKIN MD [address] [place] [address] 11-21-2023 22:50-0400 Heart rate 74 /min KRISTOFER LARKIN MD [address] [place] [address] 11-21-2023 22:50-0400 Reason For Taking VItal Signs KRISTOFER LARKIN MD [address] [place] [address] 11-21-2023 22:50-0400 Respiratory rate 18 /min KRISTOFER LARKIN MD [address] [place] [address] 11-21-2023 19:55-0400 Heart rate 89 /min KRISTOFER LARKIN MD [address] [place] [address] 11-21-2023 15:24-0400 Heart rate 84 /min KRISTOFER LARKIN MD [address] [place] [address] 11-21-2023 15:24-0400 Reason For Taking VItal Signs KRISTOFER LARKIN MD [address] [place] [address] 11-21-2023 00:28-0400 Reason For Taking VItal Signs KRISTOFER LARKIN MD [address] [place] [address] 11-20-2023 17:36-0400 Blood Pressure Cuff Size KRISTOFER LARKIN MD [address] [place] [address] 11-20-2023 17:36-0400 Blood Pressure Location KRISTOFER LARKIN MD [facility] 11-20-2023 17:36-0400 Blood Pressure Method KRISTOFER LARKIN MD [facility] 11-20-2023 17:36-0400 Mean blood pressure 78 mm[Hg] KRISTOFER LARKIN MD [address] [place] [address] 11-20-2023 15:37-0400 Blood Pressure Cuff Size KRISTOFER LARKIN MD [address] [place] [address] 11-20-2023 15:37-0400 Blood Pressure Location KRISTOFER LARKIN MD [address] [place] [address] 11-20-2023 15:37-0400 Blood Pressure Method KRISTOFER LARKIN MD [address] [place] [address] 11-19-2023 23:06-0400 Mean blood pressure 73 mm[Hg] KRISTOFER LARKIN MD [address] [place] [address] 11-19-2023 19:54-0400 Heart rate 84 /min KRISTOFER LARKIN MD [address] [place] [address] 11-19-2023 19:54-0400 Mean blood pressure 76 mm[Hg] KRISTOFER LARKIN MD [address] [place] [address] 11-19-2023 03:20-0400 Blood Pressure Cuff Size KRISTOFER LARKIN MD [address] [place] [address] 11-19-2023 03:20-0400 Blood Pressure Location KRISTOFER LARKIN MD [facility] 11-19-2023 03:20-0400 Blood Pressure Method KRISTOFER LARKIN MD [address] [place] [address] 11-18-2023 09:54-0400 Body height 155 cm KRISTOFER LARKIN MD [address] [place] [address] 11-18-2023 09:54-0400 Body weight 108.4 kg KRISTOFER LARKIN MD [address] [place] [address] 11-18-2023 09:54-0400 Body weight 45.12 kg/m2 KRISTOFER LARKIN MD [facility] 11-18-2023 08:43-0400 Diastolic Blood Pressure Non-Invasive 61 mm[Hg] CAS DURESKA DO [facility] 11-18-2023 08:43-0400 Heart rate 79 /min CAS DURESKA DO [facility] 11-18-2023 08:43-0400 Respiratory rate 18 /min CAS DURESKA DO [facility] 11-18-2023 08:43-0400 Systolic Blood Pressure Non-Invasive 97 mm[Hg] CAS DURESKA DO [facility] 11-18-2023 07:05-0400 Blood Pressure Cuff Size CAS DURESKA DO [facility] 11-18-2023 07:05-0400 Blood Pressure Location CAS DURESKA DO [facility] 11-18-2023 07:05-0400 Blood Pressure Method CAS DURESKA DO [facility] 11-18-2023 07:05-0400 Diastolic Blood Pressure Non-Invasive 63 mm[Hg] CAS DURESKA DO [facility] 11-18-2023 07:05-0400 Heart rate 76 /min CAS DURESKA DO [facility] 11-18-2023 07:05-0400 Respiratory rate 18 /min CAS DURESKA DO [facility] 11-18-2023 07:05-0400 Systolic Blood Pressure Non-Invasive 102 mm[Hg] CAS DURESKA DO [facility] 11-18-2023 06:01-0400 Blood Pressure Cuff Size CAS VASQUESESKA DO [facility] 11-18-2023 06:01-0400 Blood Pressure Location CAS VASQUESESKA DO [facility] 11-18-2023 06:01-0400 Blood Pressure Method CAS VASQUESESKA DO [facility] 11-18-2023 06:01-0400 Diastolic Blood Pressure Non-Invasive 59 mm[Hg] CAS LAYOESKA DO [facility] 11-18-2023 06:01-0400 Heart rate 76 /min CAS LAYOESKA DO [facility] 11-18-2023 06:01-0400 Respiratory rate 18 /min CAS VASQUESESKA DO [facility] 11-18-2023 06:01-0400 Systolic Blood Pressure Non-Invasive 100 mm[Hg] CAS VASQUESESKA DO [facility] 11-18-2023 05:39-0400 Body temperature 98.96 [degF] CAS DURESKA DO [facility] 11-18-2023 03:10-0400 Body temperature 99.14 [degF] CAS DURESKA DO [facility] 11-17-2023 23:23-0400 Body temperature 101.12 [degF] CAS DURESKA DO [facility] 11-17-2023 22:46-0400 Body height 155 cm CAS VASQUESESKA DO [facility] 11-17-2023 22:46-0400 Body temperature 101.66 [degF] CAS PAYNE DO [facility] 11-17-2023 22:46-0400 Body weight 101.6 kg CAS PAYNE DO [facility] 11-17-2023 22:46-0400 Reason For Taking VItal Signs CAS PAYNE DO [facility] 11-02-2023 15:34-0400 Body temperature 98.6 [degF] DR WALLACE BRUNSON MD [facility] 11-02-2023 15:34-0400 Diastolic Blood Pressure Non-Invasive 74 mm[Hg] DR WALLACE BRUNSON MD [facility] 11-02-2023 15:34-0400 Heart rate 74 /min DR WALLACE BRUNSON MD [facility] 11-02-2023 15:34-0400 Reason For Taking VItal Signs DR WALLACE BRUNSON MD [facility] 11-02-2023 15:34-0400 Respiratory rate 18 /min DR WALLACE BRUNSON MD [facility] 11-02-2023 15:34-0400 Systolic Blood Pressure Non-Invasive 121 mm[Hg] DR WALLACE BRUNSON MD [facility] 11-02-2023 11:26-0400 Body temperature 98.24 [degF] DR WALLACE BRUNSON MD [facility] 11-02-2023 11:26-0400 Diastolic Blood Pressure Non-Invasive 65 mm[Hg] DR WALLACE BRUNSON MD [facility] 11-02-2023 11:26-0400 Heart rate 66 /min DR WALLACE BRUNSON MD [facility] 11-02-2023 11:26-0400 Reason For Taking VItal Signs DR WALLACE BRUNSON MD [facility] 11-02-2023 11:26-0400 Systolic Blood Pressure Non-Invasive 98 mm[Hg] DR WALLACE BRUNSON MD [facility] 11-02-2023 08:50-0400 Body temperature 99.5 [degF] DR WALLACE BRUNSON MD [facility] 11-02-2023 08:50-0400 Diastolic Blood Pressure Non-Invasive 76 mm[Hg] DR WALLACE BRUNSON MD [facility] 11-02-2023 08:50-0400 Heart rate 75 /min DR WALLACE BRUNSON MD [facility] 11-02-2023 08:50-0400 Reason For Taking VItal Signs DR WALLACE BRUNSON MD [facility] 11-02-2023 08:50-0400 Respiratory rate 20 /min DR WALLACE BRUNSON MD [facility] 11-02-2023 08:50-0400 Systolic Blood Pressure Non-Invasive 114 mm[Hg] DR WALLACE BRUNSON MD [facility] 11-01-2023 15:27-0400 Heart rate 80 /min DR WALLACE BRUNSON MD [facility] 11-01-2023 06:27-0400 Heart rate 72 /min DR WALLACE BRUNSON MD [facility] 10-31-2023 15:40-0400 Heart rate 75 /min DR WALLACE BRUNSON MD [facility] 10-31-2023 02:50-0400 Body height [address] WALLACE BRUNSON MD [facility] 10-31-2023 02:50-0400 Body weight 97.[address] WALLACE BRUNSON MD [facility] 10-31-2023 02:50-0400 Body weight 40.58 kg/m2 DR WALLACE BRUNSON MD [facility] 10-30-2023 23:03-0400 Body weight 97.[address] WALLACE BRUNSON MD [facility] 10-11-2023 09:09-0400 Body height 154.9 cm Pacc 1 Work Phone: [facility] 10-11-2023 09:09-0400 Body mass index (BMI) [Ratio] 40.62 kg/m2 Pacc 1 Work Phone: [facility] 10-11-2023 09:09-0400 Body temperature 97.7 [degF] Pacc 1 Work Phone: [facility] 10-11-2023 09:09-0400 Body weight 97.52 kg Pacc 1 Work Phone: [facility] 10-11-2023 09:09-0400 Diastolic blood pressure 82 mm[Hg] Pacc 1 Work Phone: [facility] 10-11-2023 09:09-0400 Heart rate 99 /min Pacc 1 Work Phone: [facility] 10-11-2023 09:09-0400 SaO2% (BldA) [Mass fraction] 97 % Pacc 1 Work Phone: [facility] 10-11-2023 09:09-0400 Systolic blood pressure 118 mm[Hg] Pacc 1 Work Phone: [address]13-2024 15:49-0400 Body mass index (BMI) [Ratio] 39.87 kg/m2 Devin George APRN.BURIAL AGENT Work Phone: [facility] 10-09-2023 15:49-0400 Body weight 98.88 kg Devin George APPLICATION SUPPORT DEVELOPER.BURIAL AGENT Work Phone: [facility] 10-09-2023 15:49-0400 Diastolic blood pressure 71 mm[Hg] Devin George APPLICATION SUPPORT DEVELOPER.BURIAL AGENT Work Phone: [facility] 10-09-2023 15:49-0400 Heart rate 84 /min Devin George APPLICATION SUPPORT DEVELOPER.BURIAL AGENT Work Phone: [facility] 10-09-2023 15:49-0400 Respiratory rate 14 /min Devin George APPLICATION SUPPORT DEVELOPER.BURIAL AGENT Work Phone: [facility] 10-09-2023 15:49-0400 Systolic blood pressure 112 mm[Hg] Devin George APPLICATION SUPPORT DEVELOPER.BURIAL AGENT Work Phone: [facility] 10-07-2023 15:45-0400 Body temperature 98.6 [degF] [facility] 10-07-2023 15:45-0400 Diastolic blood pressure 74 mm[Hg] [facility] 10-07-2023 15:45-0400 Heart rate 112 /min [facility] 10-07-2023 15:45-0400 Respiratory rate 18 /min [facility] 10-07-2023 15:45-0400 SaO2% (BldA) [Mass fraction] 97 % [facility] 10-07-2023 15:45-0400 Systolic blood pressure 124 mm[Hg] [facility] 10-07-2023 13:16-0400 Body height 154.94 cm [facility] 10-07-2023 13:16-0400 Body mass index (BMI) [Ratio] 41.3 kg/m2 [facility] 10-07-2023 13:16-0400 Body weight 99.13 kg [facility] 09-28-2023 17:08-0400 Body mass index (BMI) [Ratio] 39.32 kg/m2 Devin George APRN.BURIAL AGENT Work Phone: [facility] 09-28-2023 17:08-0400 Body weight 97.52 kg Devin George APRN.BURIAL AGENT Work Phone: [facility] 09-28-2023 17:08-0400 Diastolic blood pressure 78 mm[Hg] Devin George APRN.BURIAL AGENT Work Phone: [facility] 09-28-2023 17:08-0400 Heart rate 85 /min Devin George APPLICATION SUPPORT DEVELOPER.BURIAL AGENT Work Phone: [facility] 09-28-2023 17:08-0400 Respiratory rate 14 /min Devin George APRN.BURIAL AGENT Work Phone: [facility] 09-28-2023 17:08-0400 Systolic blood pressure 110 mm[Hg] Devin George APRN.BURIAL AGENT Work Phone: [facility] 09-25-2023 00:07-0400 Diastolic Blood Pressure Non-Invasive 74 mm[Hg] NIDAL CHOUJAA DO [facility] 09-25-2023 00:07-0400 Heart rate 76 /min NIDAL CHOUJAA DO [facility] 09-25-2023 00:07-0400 Respiratory rate 18 /min NIDAL CHOUJAA DO [facility] 09-25-2023 00:07-0400 Systolic Blood Pressure Non-Invasive 124 mm[Hg] NIDAL CHOUJAA DO [facility] 09-24-2023 22:19-0400 Body temperature 98.24 [degF] NIDAL CHOUJAA DO [facility] 09-24-2023 22:19-0400 Diastolic Blood Pressure Non-Invasive 86 mm[Hg] NIDAL CHOUJAA DO [facility] 09-24-2023 22:19-0400 Heart rate 73 /min NIDAL CHOUJAA DO [facility] 09-24-2023 22:19-0400 Respiratory rate 18 /min NIDAL CHOUJAA DO [facility] 09-24-2023 22:19-0400 Systolic Blood Pressure Non-Invasive 133 mm[Hg] NIDAL CHOUJAA DO [facility] 09-21-2023 13:26-0400 Body mass index (BMI) [Ratio] 39.35 kg/m2 Daiana Sweeney MD Work Phone: [facility] 09-21-2023 13:26-0400 Body temperature 98.29 [degF] Daiana Sweeney MD Work Phone: [facility] 09-21-2023 13:26-0400 Body weight 97.6 kg Daiana Sweeney MD Work Phone: [facility] Comment on above: with shoes 09-21-2023 13:26-0400 Diastolic blood pressure 87 mm[Hg] Daiana Sweeney MD Work Phone: [facility] 09-21-2023 13:26-0400 Heart rate 68 /min Daiana Sweeney MD Work Phone: [facility] 09-21-2023 13:26-0400 Respiratory rate 18 /min Daiana Sweeney MD Work Phone: [facility] 09-21-2023 13:26-0400 SaO2% (BldA) [Mass fraction] 98 % Daiana Sweeney MD Work Phone: [facility] 09-21-2023 13:26-0400 Systolic blood pressure 134 mm[Hg] Daiana Sweeney MD Work Phone: [facility] 08-16-2023 16:07-0400 Body weight 99.97 kg Araceli Torres PA-C Work Phone: [facility] 08-16-2023 16:07-0400 Diastolic blood pressure 76 mm[Hg] Araceli Sernaer PA-C Work Phone: [facility] 08-16-2023 16:07-0400 Heart rate 78 /min Araceli Seraner PA-C Work Phone: [facility] 08-16-2023 16:07-0400 Respiratory rate 16 /min Araceli Sernaer PA-C Work Phone: [facility] 08-16-2023 16:07-0400 SaO2% (BldA) [Mass fraction] 99 % Araceli Torres PA-C Work Phone: [facility] 08-16-2023 16:07-0400 Systolic blood pressure 106 mm[Hg] Araclei Sernaer PA-C Work Phone: [facility] 08-13-2023 22:11-0400 Body temperature 98.2 [degF] [facility] 08-13-2023 22:11-0400 Diastolic blood pressure 82 mm[Hg] [facility] 08-13-2023 22:11-0400 Heart rate 77 /min [facility] 08-13-2023 22:11-0400 Respiratory rate 16 /min [facility] 08-13-2023 22:11-0400 SaO2% (BldA) [Mass fraction] 99 % [facility] 08-13-2023 22:11-0400 Systolic blood pressure 120 mm[Hg] [facility] 08-13-2023 20:09-0400 Body height 154.94 cm [facility] 08-13-2023 20:09-0400 Body mass index (BMI) [Ratio] 41.2 kg/m2 [facility] 08-13-2023 20:09-0400 Body weight 98.96 kg [facility] 07-20-2023 01:38-0500 Diastolic blood pressure 86 mm[Hg] MARTIN CHAHAL MD [facility] 07-20-2023 01:38-0500 Heart rate 84 /min MARTIN CHAHAL MD [facility] 07-20-2023 01:38-0500 Respiratory rate 18 /min MARTIN CHAHAL MD [facility] 07-20-2023 01:38-0500 Systolic blood pressure 137 mm[Hg] MARTIN CHAHAL MD [facility] 07-19-2023 23:48-0500 Body temperature 98.78 [degF] MARTIN CHAHAL MD [facility] 07-19-2023 23:48-0500 Body weight 97.7 kg MARTIN CHAHAL MD [facility] 07-19-2023 23:48-0500 Diastolic Blood Pressure Non-Invasive 83 mm[Hg] MARTIN CHAHAL MD [facility] 07-19-2023 23:48-0500 Heart rate 91 /min MARTIN CHAHAL MD [facility] 07-19-2023 23:48-0500 Respiratory rate 20 /min MARTIN CHAHAL MD [facility] 07-19-2023 23:48-0500 Systolic Blood Pressure Non-Invasive 143 mm[Hg] MARTIN CHAHAL MD [facility] 07-18-2023 13:19-0500 Body height 157.5 cm Stephan Nicholson MD Work Phone: [facility] 07-18-2023 13:19-0500 Body weight 98.88 kg Stephan Nicholson MD Work Phone: [facility] 07-18-2023 13:19-0500 Diastolic blood pressure 63 mm[Hg] Stephan Nicholson MD Work Phone: [facility] 07-18-2023 13:19-0500 Heart rate 72 /min Stephan Nicholson MD Work Phone: [facility] 07-18-2023 13:19-0500 SaO2% (BldA) [Mass fraction] 98 % Stephan Nicholson MD Work Phone: [facility] 07-18-2023 13:19-0500 Systolic blood pressure 101 mm[Hg] Stephan Nicholson MD Work Phone: [facility] 07-15-2023 14:33-0500 Diastolic Blood Pressure Non-Invasive 76 mm[Hg] BRADY DOMINGUEZ MD [facility] 07-15-2023 14:33-0500 Heart rate 76 /min BRADY DOMINGUEZ MD [facility] 07-15-2023 14:33-0500 Respiratory rate 18 /min BRADY DOMINGUEZ MD [facility] 07-15-2023 14:33-0500 Systolic Blood Pressure Non-Invasive 110 mm[Hg] BRADY DOMINGUEZ MD [facility] 07-15-2023 13:05-0500 Body height 155 cm BRADY DOMINGUEZ MD [facility] 07-15-2023 13:05-0500 Body temperature 97.7 [degF] BRADY DOMINGUEZ MD [facility] 07-15-2023 13:05-0500 Body weight 100 kg BRADY DOMINGUEZ MD [facility] 07-15-2023 13:05-0500 Diastolic Blood Pressure Non-Invasive 68 mm[Hg] BRADY DOMINGUEZ MD [facility] 07-15-2023 13:05-0500 Heart rate 86 /min BRADY DOMINGUEZ MD [facility] 07-15-2023 13:05-0500 Respiratory rate 20 /min BRADY DOMINGUEZ MD [facility] 07-15-2023 13:05-0500 Systolic Blood Pressure Non-Invasive 118 mm[Hg] BRADY DOMINGUEZ MD [facility] 06-07-2023 20:17-0500 Blood Pressure Cuff Size JHONY REICHFIELD DO [facility] 06-07-2023 20:17-0500 Blood Pressure Location JHONY REICHFIELD DO [facility] 06-07-2023 20:17-0500 Blood Pressure Method JHONY REICHFIELD DO [facility] 06-07-2023 20:17-0500 Diastolic Blood Pressure Non-Invasive 80 mm[Hg] JHONY REICHFIELD DO [facility] 06-07-2023 20:17-0500 Heart rate 64 /min JHONY REICHFIELD DO [facility] 06-07-2023 20:17-0500 Respiratory rate 16 /min JHONY REICHFIELD DO [facility] 06-07-2023 20:17-0500 Systolic Blood Pressure Non-Invasive 117 mm[Hg] JHONY REICHFIELD DO [facility] 06-07-2023 18:24-0500 Blood Pressure Location JHONY REICHFIELD DO [facility] 06-07-2023 18:24-0500 Body temperature 98.78 [degF] JHONY REICHFIELD DO [facility] 06-07-2023 18:24-0500 Diastolic Blood Pressure Non-Invasive 97 mm[Hg] JHONY REICHFIELD DO [facility] 06-07-2023 18:24-0500 Heart rate 88 /min JHONY REICHFIELD DO [facility] 06-07-2023 18:24-0500 Respiratory rate 20 /min JHONY REICHFIELD DO [facility] 06-07-2023 18:24-0500 Systolic Blood Pressure Non-Invasive 145 mm[Hg] JHONY REICHFIELD DO [facility] 05-02-2023 14:56-0500 Body weight 97.98 kg Joni Monk MD Work Phone: [facility] 05-02-2023 14:56-0500 Diastolic blood pressure 80 mm[Hg] Joni Monk MD Work Phone: [facility] 05-02-2023 14:56-0500 Systolic blood pressure 128 mm[Hg] Joni Monk MD Work Phone: [facility] 05-02-2023 08:50-0500 Body weight 97.98 kg Araceli Sernaer PA-C Work Phone: [facility] 05-02-2023 08:50-0500 Diastolic blood pressure 82 mm[Hg] Araceli Queener PA-C Work Phone: [facility] 05-02-2023 08:50-0500 Heart rate 75 /min Araceli Queener PA-C Work Phone: [facility] 05-02-2023 08:50-0500 Respiratory rate 18 /min Araceli Queener PA-C Work Phone: [facility] 05-02-2023 08:50-0500 SaO2% (BldA) [Mass fraction] 100 % Araceli Torres PA-C Work Phone: [facility] 05-02-2023 08:50-0500 Systolic blood pressure 122 mm[Hg] Araceli Torres PA-C Work Phone: [facility] 04-24-2023 13:23-0500 Body height 157.5 cm Xavier Josue MD Work Phone: [facility] 04-24-2023 13:23-0500 Body weight 98.88 kg Xavier Josue MD Work Phone: [facility] 04-24-2023 13:23-0500 Diastolic blood pressure 82 mm[Hg] Xavier Josue MD Work Phone: [facility] 04-24-2023 13:23-0500 Systolic blood pressure 124 mm[Hg] Xavier Josue MD Work Phone: [facility] 04-21-2023 02:29-0500 Heart rate 75 /min [facility] 04-21-2023 02:29-0500 Respiratory rate 18 /min [facility] 04-21-2023 02:29-0500 SaO2% (BldA) [Mass fraction] 97 % [facility] 04-20-2023 22:50-0500 Body height 154.94 cm [facility] 04-20-2023 22:50-0500 Body mass index (BMI) [Ratio] 41.6 kg/m2 [facility] 04-20-2023 22:50-0500 Body temperature 98.3 [degF] [facility] 04-20-2023 22:50-0500 Body weight 99.93 kg [facility] 04-20-2023 22:50-0500 Diastolic blood pressure 88 mm[Hg] [facility] 04-20-2023 22:50-0500 Systolic blood pressure 136 mm[Hg] [facility] 04-10-2023 16:17-0500 Body height 157.5 cm Xavier Josue MD Work Phone: [facility] 04-10-2023 16:17-0500 Body temperature 97.11 [degF] Xavier Josue MD Work Phone: [facility] 04-10-2023 16:17-0500 Body weight 98.97 kg Xavier Josue MD Work Phone: [facility] 04-10-2023 16:17-0500 Diastolic blood pressure 80 mm[Hg] Xavier Josue MD Work Phone: [facility] 04-10-2023 16:17-0500 Heart rate 112 /min Xavier Josue MD Work Phone: [facility] 04-10-2023 16:17-0500 SaO2% (BldA) [Mass fraction] 99 % Xavier Josue MD Work Phone: [facility] 04-10-2023 16:17-0500 Systolic blood pressure 128 mm[Hg] Xavier Josue MD Work Phone: [facility] 02-25-2023 19:02-0400 Body temperature 98.42 [degF] 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 APPLICATION SUPPORT DEVELOPER-BURIAL AGENT [facility] 02-25-2023 19:02-0400 Diastolic Blood Pressure Non-Invasive 74 1 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 APRN-BURIAL AGENT [facility] 02-25-2023 19:02-0400 Heart rate 74 /min 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 APRN-BURIAL AGENT [facility] 02-25-2023 19:02-0400 Reason For Taking VItal Signs 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 APRN-BURIAL AGENT [facility] 02-25-2023 19:02-0400 Respiratory rate 16 /min 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 APRN-BURIAL AGENT [facility] 02-25-2023 19:02-0400 Systolic Blood Pressure Non-Invasive 111 1 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 APPLICATION SUPPORT DEVELOPER-BURIAL AGENT [facility] 02-25-2023 16:30-0400 Body temperature 97.88 [degF] KYARA GEOFF APPLICATION SUPPORT DEVELOPER-BURIAL AGENT [facility] 02-25-2023 16:30-0400 Diastolic Blood Pressure Non-Invasive 61 1 KYARALORRAINE RAYOITH APPLICATION SUPPORT DEVELOPER-BURIAL AGENT [facility] 02-25-2023 16:30-0400 Heart rate 65 /min KYARA RAYOITH APPLICATION SUPPORT DEVELOPER-BURIAL AGENT [facility] 02-25-2023 16:30-0400 Respiratory rate 20 /min KYARA FOITH APPLICATION SUPPORT DEVELOPER-BURIAL AGENT [facility] 02-25-2023 16:30-0400 Systolic Blood Pressure Non-Invasive 101 1 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 APPLICATION SUPPORT DEVELOPER-BURIAL AGENT [facility] 02-25-2023 12:14-0400 Body temperature 97.88 [degF] KYARALORRAINE RAYOITH APPLICATION SUPPORT DEVELOPER-BURIAL AGENT [facility] 02-25-2023 12:14-0400 Diastolic Blood Pressure Non-Invasive 63 1 KYARA GIRMAITH APPLICATION SUPPORT DEVELOPER-BURIAL AGENT [facility] 02-25-2023 12:14-0400 Heart rate 65 /min KYARA RAYOITH APPLICATION SUPPORT DEVELOPER-BURIAL AGENT [facility] 02-25-2023 12:14-0400 Respiratory rate 20 /min KYARA GIRMAITH APPLICATION SUPPORT DEVELOPER-BURIAL AGENT [facility] 02-25-2023 12:14-0400 Systolic Blood Pressure Non-Invasive 101 1 KYARALORRAINE RAYOITH APPLICATION SUPPORT DEVELOPER-BURIAL AGENT [facility] 02-25-2023 08:06-0400 Heart rate 66 /min KYARA FOITH APPLICATION SUPPORT DEVELOPER-BURIAL AGENT [facility] 02-25-2023 03:39-0400 Heart rate 59 /min KYARA FOITH APPLICATION SUPPORT DEVELOPER-BURIAL AGENT [facility] 02-25-2023 03:39-0400 Reason For Taking VItal Signs KYARA RAYOITH APPLICATION SUPPORT DEVELOPER-BURIAL AGENT [facility] 02-24-2023 23:22-0400 Heart rate 66 /min KYARA GIRMAITH APPLICATION SUPPORT DEVELOPER-BURIAL AGENT [facility] 02-24-2023 23:22-0400 Reason For Taking VItal Signs KYARA RAYOITH APPLICATION SUPPORT DEVELOPER-BURIAL AGENT [facility] 02-24-2023 07:10-0400 Heart rate 59 /min KYARA GIRMAITH APPLICATION SUPPORT DEVELOPER-BURIAL AGENT [facility] 02-24-2023 02:49-0400 Heart rate 65 /min KYARA GIRMAITH APPLICATION SUPPORT DEVELOPER-BURIAL AGENT [facility] 02-23-2023 22:55-0400 Heart rate 61 /min KYARA FOITH APPLICATION SUPPORT DEVELOPER-BURIAL AGENT [facility] 02-22-2023 02:11-0400 Body height 155 cm KYARA RAYOITH APPLICATION SUPPORT DEVELOPER-BURIAL AGENT [facility] 02-22-2023 [id number] Body weight 97.9 kg KYARA FOITH APPLICATION SUPPORT DEVELOPER-BURIAL AGENT [facility] 02-22-2023 02:11-0400 Body weight 40.75 kg/m2 KYARA FOITH APPLICATION SUPPORT DEVELOPER-BURIAL AGENT [facility] 02-22-2023 01:22-0400 Body height 155 cm KYARA FOITH APPLICATION SUPPORT DEVELOPER-BURIAL AGENT [facility] 02-22-2023 01:22-0400 Body weight 94.5 kg KYARA GEOFF APPLICATION SUPPORT DEVELOPER-BURIAL AGENT [facility] 02-22-2023 01:22-0400 Body weight 39.33 kg/m2 KYARA GEOFF APPLICATION SUPPORT DEVELOPER-BURIAL AGENT [facility] 02-21-2023 17:28-0400 Blood Pressure Location 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 APPLICATION SUPPORT DEVELOPER-BURIAL AGENT [facility] 02-21-2023 17:28-0400 Blood Pressure Method 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 APPLICATION SUPPORT DEVELOPER-BURIAL AGENT [facility] 02-02-2023 22:55-0400 Diastolic blood pressure 76 mm[Hg] [facility] 02-02-2023 22:55-0400 Heart rate 88 /min [facility] 02-02-2023 22:55-0400 Respiratory rate 16 /min [facility] 02-02-2023 22:55-0400 SaO2% (BldA) [Mass fraction] 97 % [facility] 02-02-2023 22:55-0400 Systolic blood pressure 131 mm[Hg] [facility] 02-02-2023 22:10-0400 Body temperature 99.4 [degF] [facility] 02-02-2023 17:56-0400 Body height 154.94 cm [facility] 01-29-2023 00:53-0400 SaO2% (BldA) [Mass fraction] 97 % [facility] 01-29-2023 00:49-0400 Body mass index (BMI) [Ratio] 42 kg/m2 [facility] 01-29-2023 00:49-0400 Body temperature 97.1 [degF] [facility] 01-29-2023 00:49-0400 Body weight 101 kg [facility] 01-29-2023 00:49-0400 Diastolic blood pressure 82 mm[Hg] [facility] 01-29-2023 00:49-0400 Heart rate 83 /min [facility] 01-29-2023 00:49-0400 Respiratory rate 17 /min [facility] 01-29-2023 00:49-0400 Systolic blood pressure 152 mm[Hg] [facility] 01-04-2023 15:39-0400 Body temperature 97.8 [degF] [facility] 01-04-2023 15:39-0400 Diastolic blood pressure 69 mm[Hg] [facility] 01-04-2023 15:39-0400 Heart rate 77 /min [facility] 01-04-2023 15:39-0400 Respiratory rate 16 /min [facility] 01-04-2023 15:39-0400 SaO2% (BldA) [Mass fraction] 99 % [facility] 01-04-2023 15:39-0400 Systolic blood pressure 126 mm[Hg] [facility] 01-04-2023 14:47-0400 Body height 154.94 cm [facility] 01-04-2023 14:47-0400 Body mass index (BMI) [Ratio] 39.2 kg/m2 [facility] 01-04-2023 14:47-0400 Body weight 94.34 kg [facility] 12-12-2022 21:31-0400 Diastolic blood pressure 60 mm[Hg] Dr. Will Brannon Work Phone: [facility] 12-12-2022 21:31-0400 Heart rate 78 /min Dr. Will Brannon Work Phone: [facility] 12-12-2022 21:31-0400 Respiratory rate 18 /min Dr. Will Brannon Work Phone: [facility] 12-12-2022 21:31-0400 SaO2% (BldA) [Mass fraction] 96 % Dr. Will Brannon Work Phone: [facility] 12-12-2022 21:31-0400 Systolic blood pressure 121 mm[Hg] Dr. Will Brannon Work Phone: [facility] 12-12-2022 18:47-0400 Body mass index (BMI) [Ratio] 39.6 kg/m2 Dr. Will Brannon Work Phone: [facility] 12-12-2022 18:47-0400 Body weight 95.[address] Will Brannon Work Phone: [facility] 12-12-2022 18:46-0400 Body height 154.[address] Will Brannon Work Phone: [facility] 12-12-2022 18:46-0400 Body temperature 97.1 [degF] Dr. Will Brannon Work Phone: [facility] 12-10-2022 02:54-0400 Body temperature 98.24 [degF] CAS RAZOJUANPABLO DO [facility] 12-10-2022 02:54-0400 Diastolic Blood Pressure Non-Invasive 92 1 CAS DUNGJUANPABLO DO [facility] 12-10-2022 02:54-0400 Respiratory rate 16 /min CAS RAZOJUANPABLO DO [facility] 12-10-2022 02:54-0400 Systolic Blood Pressure Non-Invasive 128 1 CAS RAZOJUANPABLO DO [facility] 12-10-2022 00:04-0400 Body height 155 cm CAS RAZOJUANPABLO DO [facility] 12-10-2022 00:04-0400 Body temperature 98.42 [degF] CAS RAZOKA DO [facility] 12-10-2022 00:04-0400 Body weight 95.5 kg CAS RAZOJUANPABLO DO [facility] 12-10-2022 00:04-0400 Diastolic Blood Pressure Non-Invasive 86 1 CAS PAYNE DO [facility] 12-10-2022 00:04-0400 Heart rate 98 /min CAS PAYNE DO [facility] 12-10-2022 00:04-0400 Respiratory rate 18 /min CAS PAYNE DO [facility] 12-10-2022 00:04-0400 Systolic Blood Pressure Non-Invasive 126 1 CAS RAZOKA DO [facility] 12-02-2022 15:18-0400 Body temperature 97.3 [degF] Cory Box PA-C Work Phone: [facility] 12-02-2022 15:18-0400 Body weight 96.98 kg Cory Box PA-C Work Phone: [facility] 12-02-2022 15:18-0400 Diastolic blood pressure 68 mm[Hg] Cory Box PA-C Work Phone: [facility] 12-02-2022 15:18-0400 Heart rate 94 /min Cory Box PA-C Work Phone: [facility] 12-02-2022 15:18-0400 SaO2% (BldA) [Mass fraction] 96 % Cory Box PA-C Work Phone: [facility] 12-02-2022 15:18-0400 Systolic blood pressure 120 mm[Hg] Cory Box PA-C Work Phone: [facility] 11-22-2022 02:41-0400 Body temperature 98.96 [degF] BRADY DOMINGUEZ MD [facility] 11-22-2022 02:41-0400 Diastolic Blood Pressure Non-Invasive 78 1 BRADY DOMINGUEZ MD [facility] 11-22-2022 02:41-0400 Heart rate 89 /min BRADY DOMINGUEZ MD [facility] 11-22-2022 02:41-0400 Respiratory rate 20 /min BRADY DOMINGUEZ MD [facility] 11-22-2022 02:41-0400 Systolic Blood Pressure Non-Invasive 134 1 BRADY DOMINGUEZ MD [facility] 11-21-2022 23:55-0400 Blood Pressure Cuff Size BRADY DOMINGUEZ MD [facility] 11-21-2022 23:55-0400 Blood Pressure Location BRADY DOMINGUEZ MD [facility] 11-21-2022 23:55-0400 Blood Pressure Method BRADY DOMINGUEZ MD [facility] 11-21-2022 23:55-0400 Body height 155 cm BRADY DOMINGUEZ MD [facility] 11-21-2022 23:55-0400 Body temperature 98.96 [degF] BRADY DOMINGUEZ MD [facility] 11-21-2022 23:55-0400 Body weight 94.1 kg BRADY DOMINGUEZ MD [facility] 11-21-2022 23:55-0400 Diastolic Blood Pressure Non-Invasive 87 1 BRADY DOMINGUEZ MD [facility] 11-21-2022 23:55-0400 Heart rate 90 /min BRADY DOMINGUEZ MD [facility] 11-21-2022 23:55-0400 Respiratory rate 20 /min BRADY DOMINGUEZ MD [facility] 11-21-2022 23:55-0400 Systolic Blood Pressure Non-Invasive 138 1 BRADY DOMINGUEZ MD [facility] 11-18-2022 15:07-0400 Body height 154.9 cm Araseli Renae APRN.BURIAL AGENT Work Phone: [facility] 11-18-2022 15:07-0400 Body weight 94.35 kg Araseli Renae APRN.BURIAL AGENT Work Phone: [facility] 10-15-2022 15:33-0400 Diastolic blood pressure 77 mm[Hg] Dr. Will Brannon Work Phone: [facility] 10-15-2022 15:33-0400 Heart rate 68 /min Dr. Will Brannon Work Phone: [facility] 10-15-2022 15:33-0400 Respiratory rate 15 /min Dr. Will Brannon Work Phone: [facility] 10-15-2022 15:33-0400 SaO2% (BldA) [Mass fraction] 98 % Dr. Will Brannon Work Phone: [facility] 10-15-2022 15:33-0400 Systolic blood pressure 138 mm[Hg] Dr. Will Brannon Work Phone: [facility] 10-15-2022 13:43-0400 Body mass index (BMI) [Ratio] 39.2 kg/m2 Dr. Will Brannon Work Phone: [facility] 10-15-2022 13:43-0400 Body weight 94.[address] Will Brannon Work Phone: [facility] 10-15-2022 12:57-0400 Body temperature 97.4 [degF] Dr. Will Brannon Work Phone: [facility] 10-06-2022 23:39-0400 Diastolic blood pressure 75 mm[Hg] Dr. Will Brannon Work Phone: 4(840)959-159329 [place] [address] 10-06-2022 23:39-0400 Heart rate 62 /min Dr. Will Brannon Work Phone: 1(090)043-161158 [place] [address] 10-06-2022 23:39-0400 Respiratory rate 15 /min Dr. Will Brannon Work Phone: 5(905)206-677558 [place] [address] 10-06-2022 23:39-0400 SaO2% (BldA) [Mass fraction] 97 % Dr. Will Brannon Work Phone: 1(810)084-551458 [place] [address] 10-06-2022 23:39-0400 Systolic blood pressure 134 mm[Hg] Dr. Will Brannon Work Phone: 4(570)476-750258 [place] [address] 10-06-2022 22:36-0400 Body height 154.[address] Will Brannon Work Phone: 7(481)061-577358 [place] [address] 10-06-2022 22:36-0400 Body temperature 98 [degF] Dr. Will Brannon Work Phone: 7(955)220-432758 [place] [address] 09-01-2022 14:52-0400 Body mass index (BMI) [Ratio] 39.1 kg/m2 Dr. Will Brannon Work Phone: 6(457)061-836158 [place] [address] 09-01-2022 14:52-0400 Body temperature 97.8 [degF] Dr. Will Brannon Work Phone: 4(578)631-071958 [place] [address] 09-01-2022 14:52-0400 Body weight 93.[address] Will Brannon Work Phone: 8(457)456-426958 [place] [address] 09-01-2022 14:52-0400 Diastolic blood pressure 81 mm[Hg] Dr. Will Brannon Work Phone: 2(555)233-758358 [place] [address] 09-01-2022 14:52-0400 Heart rate 99 /min Dr. Will Brannon Work Phone: 0(708)917-032358 [place] [address] 09-01-2022 14:52-0400 Respiratory rate 20 /min Dr. Will Brannon Work Phone: 2(036)427-857258 [place] [address] 09-01-2022 14:52-0400 SaO2% (BldA) [Mass fraction] 97 % Dr. Will Brannon Work Phone: 4(525)834-267329 [place] [address] 09-01-2022 14:52-0400 Systolic blood pressure 117 mm[Hg] Dr. Will Brannon Work Phone: 1(699)489-977858 [place] [address] 08-16-2022 14:57-0400 Diastolic blood pressure 71 mm[Hg] Dr. Will Brannon Work Phone: 5(217)272-871358 [place] [address] 08-16-2022 14:57-0400 Heart rate 62 /min Dr. Will Brannon Work Phone: 2(706)803-466958 [place] [address] 08-16-2022 14:57-0400 Respiratory rate 15 /min Dr. Will Brannon Work Phone: 8(398)953-578058 [place] [address] 08-16-2022 14:57-0400 SaO2% (BldA) [Mass fraction] 98 % Dr. Will Brannon Work Phone: 4(626)982-710829 [place] [address] 08-16-2022 14:57-0400 Systolic blood pressure 138 mm[Hg] Dr. Will Brannon Work Phone: 4(758)287-947529 [place] [address] 08-16-2022 14:44-0400 Body temperature 98.4 [degF] Dr. Will Brannon Work Phone: 6(107)419-046229 [place] [address] 08-16-2022 11:48-0400 Body mass index (BMI) [Ratio] 39.2 kg/m2 Dr. Will Brannon Work Phone: 6(177)367-727629 [place] [address] 08-16-2022 11:48-0400 Body weight 94.[address] Will Brannon Work Phone: 7(820)353-690329 [place] [address] 08-16-2022 11:40-0400 Body height 154.[address] Will Brannon Work Phone: 0(708)781-688729 [place] [address] 07-20-2022 10:25-0500 Body height 154.9 cm Farhat Sears MD Work Phone: [facility] 07-20-2022 10:25-0500 Body weight 89.81 kg Farhat Sears MD Work Phone: [facility] 07-20-2022 10:25-0500 Diastolic blood pressure 72 mm[Hg] Farhat Sears MD Work Phone: [facility] 07-20-2022 10:25-0500 Heart rate 70 /min Farhat Sears MD Work Phone: [facility] 07-20-2022 10:25-0500 Systolic blood pressure 103 mm[Hg] Farhat Sears MD Work Phone: [facility] 07-18-2022 14:22-0500 Body temperature 98.5 [degF] Dr. Will Brannon Work Phone: [facility] 07-18-2022 14:22-0500 Diastolic blood pressure 69 mm[Hg] Dr. Will Brannon Work Phone: 9(292)025-120429 [place] [address] 07-18-2022 14:22-0500 Heart rate 65 /min Dr. Will Brannon Work Phone: 1(724)726-347129 [place] [address] 07-18-2022 14:22-0500 Respiratory rate 16 /min Dr. Will Brannon Work Phone: [facility] 07-18-2022 14:22-0500 SaO2% (BldA) [Mass fraction] 99 % Dr. Will Brannon Work Phone: [facility] 07-18-2022 14:22-0500 Systolic blood pressure 112 mm[Hg] Dr. Will Brannon Work Phone: 5(798)431-168129 [place] [address] 07-18-2022 06:00-0500 Body weight 93.[address] Will Brannon Work Phone: [facility] 07-15-2022 12:45-0500 Body height 154.[address] Will Brannon Work Phone: [facility] 07-15-2022 12:45-0500 Body mass index (BMI) [Ratio] 38.2 kg/m2 Dr. Will Brannon Work Phone: [facility] 07-13-2022 04:00-0500 Body temperature 98 [degF] [facility] 07-13-2022 04:00-0500 Diastolic blood pressure 69 mm[Hg] [facility] 07-13-2022 04:00-0500 Heart rate 78 /min [facility] 07-13-2022 04:00-0500 Respiratory rate 18 /min [facility] 07-13-2022 04:00-0500 SaO2% (BldA) [Mass fraction] 95 % [facility] 07-13-2022 04:00-0500 Systolic blood pressure 106 mm[Hg] [facility] 07-12-2022 22:53-0500 Body height 154.94 cm [facility] 07-12-2022 22:53-0500 Body mass index (BMI) [Ratio] 37.4 kg/m2 [facility] 07-12-2022 22:53-0500 Body weight 89.81 kg [facility] 07-04-2022 00:24-0500 Diastolic Blood Pressure Non-Invasive 66 1 DAMIR BLUNT DO [facility] 07-04-2022 00:24-0500 Heart rate 75 /min DAMIR BLUNT DO [facility] 07-04-2022 00:24-0500 Reason For Taking VItal Signs DAMIR BLUNT DO [facility] 07-04-2022 00:24-0500 Respiratory rate 16 /min DAMIR BLUNT DO [facility] 07-04-2022 00:24-0500 Systolic Blood Pressure Non-Invasive 106 1 DAMIR BLUNT DO [facility] 07-03-2022 22:45-0500 Body temperature 99.68 [degF] DAMIR BLUNT DO [facility] 07-03-2022 22:45-0500 Diastolic Blood Pressure Non-Invasive 74 1 DAMIR BLUNT DO [facility] 07-03-2022 22:45-0500 Heart rate 89 /min DAMIR BLUNT DO [facility] 07-03-2022 22:45-0500 Respiratory rate 18 /min DAMIR BLUNT DO [facility] 07-03-2022 22:45-0500 Systolic Blood Pressure Non-Invasive 108 1 DAMIR BLUNT DO [facility] 06-05-2022 10:32-0500 Heart rate 69 /min NADER CARDOZO APPLICATION SUPPORT DEVELOPER-BURIAL AGENT [facility] 06-05-2022 07:35-0500 Body temperature 97.7 [degF] NADER JULIANE APPLICATION SUPPORT DEVELOPER-BURIAL AGENT [facility] 06-05-2022 07:35-0500 Diastolic Blood Pressure Non-Invasive 75 1 NADER EARLELY APPLICATION SUPPORT DEVELOPER-BURIAL AGENT [facility] 06-05-2022 07:35-0500 Heart rate 64 /min NADER EARLELY APPLICATION SUPPORT DEVELOPER-BURIAL AGENT [facility] 06-05-2022 07:35-0500 Reason For Taking VItal Signs NADER JULIANE APPLICATION SUPPORT DEVELOPER-BURIAL AGENT [facility] 06-05-2022 07:35-0500 Respiratory rate 18 /min NADER EARLELY APPLICATION SUPPORT DEVELOPER-BURIAL AGENT [facility] 06-05-2022 07:35-0500 Systolic Blood Pressure Non-Invasive 111 1 NADER EARLELY APPLICATION SUPPORT DEVELOPER-BURIAL AGENT [facility] 06-05-2022 05:34-0500 Body temperature 97.88 [degF] NADER JULIANE APPLICATION SUPPORT DEVELOPER-BURIAL AGENT [facility] 06-05-2022 05:34-0500 Diastolic Blood Pressure Non-Invasive 80 1 NADER CARDOZO APPLICATION SUPPORT DEVELOPER-BURIAL AGENT [facility] 06-05-2022 05:34-0500 Heart rate 73 /min NADER CARDOZO APPLICATION SUPPORT DEVELOPER-BURIAL AGENT [facility] 06-05-2022 05:34-0500 Respiratory rate 18 /min NADER CARDOZO APPLICATION SUPPORT DEVELOPER-BURIAL AGENT [facility] 06-05-2022 05:34-0500 Systolic Blood Pressure Non-Invasive 126 1 NADER CARDOZO APPLICATION SUPPORT DEVELOPER-BURIAL AGENT [facility] 06-05-2022 01:26-0500 Body temperature 98.42 [degF] NADER CARDOZO APPLICATION SUPPORT DEVELOPER-BURIAL AGENT [facility] 06-05-2022 01:26-0500 Diastolic Blood Pressure Non-Invasive 79 1 NADER CARDOZO APPLICATION SUPPORT DEVELOPER-BURIAL AGENT [facility] 06-05-2022 01:26-0500 Heart rate 82 /min NADER CARDOZO APPLICATION SUPPORT DEVELOPER-BURIAL AGENT [facility] 06-05-2022 01:26-0500 Respiratory rate 20 /min NADER CARDOZO APPLICATION SUPPORT DEVELOPER-BURIAL AGENT [facility] 06-05-2022 01:26-0500 Systolic Blood Pressure Non-Invasive 117 1 NADER EARLELY APPLICATION SUPPORT DEVELOPER-BURIAL AGENT [facility] 06-05-2022 01:25-0500 Body height 155 cm NADER CARDOZO APPLICATION SUPPORT DEVELOPER-BURIAL AGENT [facility] 06-05-2022 01:25-0500 Body weight 92.2 kg NADER CARDOZO APPLICATION SUPPORT DEVELOPER-BURIAL AGENT [facility] 06-05-2022 01:25-0500 Body weight 38.38 kg/m2 NADER CARDOZO APPLICATION SUPPORT DEVELOPER-BURIAL AGENT [facility] 06-05-2022 00:39-0500 Heart rate 85 /min NADER CARDOZO APPLICATION SUPPORT DEVELOPER-BURIAL AGENT [facility] 06-04-2022 22:16-0500 Blood Pressure Location NADER CARDOZO APPLICATION SUPPORT DEVELOPER-BURIAL AGENT [facility] 06-04-2022 22:16-0500 Blood Pressure Method NADER CARDOZO APPLICATION SUPPORT DEVELOPER-BURIAL AGENT [facility] 05-15-2022 21:57-0500 Body temperature 97 [degF] [facility] 05-15-2022 21:57-0500 Diastolic blood pressure 99 mm[Hg] [facility] 05-15-2022 21:57-0500 Heart rate 85 /min [facility] 05-15-2022 21:57-0500 Respiratory rate 17 /min [facility] 05-15-2022 21:57-0500 Systolic blood pressure 129 mm[Hg] [facility] 05-15-2022 20:56-0500 SaO2% (BldA) [Mass fraction] 98 % [facility] 05-15-2022 20:53-0500 Body mass index (BMI) [Ratio] 38.5 kg/m2 [facility] 05-15-2022 20:53-0500 Body weight 92.53 kg [facility] 04-27-2022 15:01-0500 Body temperature 97.7 [degF] JERAD GONZALEZ APPLICATION SUPPORT DEVELOPER-BURIAL AGENT [facility] 04-27-2022 15:01-0500 Diastolic Blood Pressure Non-Invasive 80 1 JERAD GONZALEZ APPLICATION SUPPORT DEVELOPER-BURIAL AGENT [facility] 04-27-2022 15:01-0500 Heart rate 67 /min JERAD GONZALEZ APPLICATION SUPPORT DEVELOPER-BURIAL AGENT [facility] 04-27-2022 15:01-0500 Reason For Taking VItal Signs JERAD GONZALEZ APPLICATION SUPPORT DEVELOPER-BURIAL AGENT [facility] 04-27-2022 15:01-0500 Respiratory rate 16 /min JERAD GONZALEZ APPLICATION SUPPORT DEVELOPER-BURIAL AGENT [facility] 04-27-2022 15:01-0500 Systolic Blood Pressure Non-Invasive 115 1 JERAD GONZALEZ APPLICATION SUPPORT DEVELOPER-BURIAL AGENT [facility] 04-27-2022 11:52-0500 Body temperature 97.52 [degF] JERADANASTASIA GONZALEZ APPLICATION SUPPORT DEVELOPER-BURIAL AGENT [facility] 04-27-2022 11:52-0500 Diastolic Blood Pressure Non-Invasive 72 1 JERAD GONZALEZ APPLICATION SUPPORT DEVELOPER-BURIAL AGENT [facility] 04-27-2022 11:52-0500 Heart rate 62 /min JERAD GONZALEZ APPLICATION SUPPORT DEVELOPER-BURIAL AGENT [facility] 04-27-2022 11:52-0500 Reason For Taking VItal Signs JERAD GONZALEZ APPLICATION SUPPORT DEVELOPER-BURIAL AGENT [facility] 04-27-2022 11:52-0500 Respiratory rate 18 /min JERAD GONZALEZ APPLICATION SUPPORT DEVELOPER-BURIAL AGENT [facility] 04-27-2022 11:52-0500 Systolic Blood Pressure Non-Invasive 105 1 JERAD OROURKEN APPLICATION SUPPORT DEVELOPER-BURIAL AGENT [facility] 04-27-2022 07:37-0500 Body temperature 97.88 [degF] JERAD GONZALEZ APPLICATION SUPPORT DEVELOPER-BURIAL AGENT [facility] 04-27-2022 07:37-0500 Diastolic Blood Pressure Non-Invasive 78 1 JERAD GONZALEZ APPLICATION SUPPORT DEVELOPER-BURIAL AGENT [facility] 04-27-2022 07:37-0500 Heart rate 56 /min JERAD GONZALEZ APPLICATION SUPPORT DEVELOPER-BURIAL AGENT [facility] 04-27-2022 07:37-0500 Reason For Taking VItal Signs JERAD GONZALEZ APPLICATION SUPPORT DEVELOPER-BURIAL AGENT [facility] 04-27-2022 07:37-0500 Respiratory rate 18 /min JERAD GONZALEZ APPLICATION SUPPORT DEVELOPER-BURIAL AGENT [facility] 04-27-2022 07:37-0500 Systolic Blood Pressure Non-Invasive 114 1 JERAD GONZALEZ APPLICATION SUPPORT DEVELOPER-BURIAL AGENT [facility] 04-26-2022 14:39-0500 Heart rate 62 /min JERAD GONZALEZ APPLICATION SUPPORT DEVELOPER-BURIAL AGENT [facility] 04-26-2022 10:27-0500 Heart rate 63 /min JERAD OROURKEN APPLICATION SUPPORT DEVELOPER-BURIAL AGENT [facility] 04-26-2022 06:59-0500 Heart rate 67 /min JERAD GONZALEZ APPLICATION SUPPORT DEVELOPER-BURIAL AGENT [facility] 04-24-2022 05:33-0500 Body height 154.94 cm JERAD GONZALEZ APPLICATION SUPPORT DEVELOPER-BURIAL AGENT [facility] 04-24-2022 05:33-0500 Body weight 92.4 kg JERAD OROURKEN APPLICATION SUPPORT DEVELOPER-BURIAL AGENT [facility] 04-24-2022 05:33-0500 Body weight 38.49 kg/m2 JERAD OROURKEN APPLICATION SUPPORT DEVELOPER-BURIAL AGENT [facility] 04-24-2022 03:47-0500 Blood Pressure Location JERAD GONZALEZ APPLICATION SUPPORT DEVELOPER-BURIAL AGENT [facility] 04-24-2022 03:47-0500 Blood Pressure Method JERADANASTASIA OROURKEN APPLICATION SUPPORT DEVELOPER-BURIAL AGENT [facility] 04-24-2022 03:47-0500 Body height 154.94 cm JERAD OROURKEN APPLICATION SUPPORT DEVELOPER-BURIAL AGENT [facility] 04-24-2022 03:47-0500 Body weight 92.4 kg JERAD OROURKEN APPLICATION SUPPORT DEVELOPER-BURIAL AGENT [facility] 04-24-2022 03:21-0500 Heart rate 79 /min JERAD OROURKEN APPLICATION SUPPORT DEVELOPER-BURIAL AGENT [facility] 04-24-2022 02:52-0500 Heart rate 83 /min JERAD OROURKEN APPLICATION SUPPORT DEVELOPER-BURIAL AGENT [facility] 04-24-2022 01:26-0500 Heart rate 84 /min JERAD OROURKEN APPLICATION SUPPORT DEVELOPER-BURIAL AGENT [facility] 04-24-2022 00:07-0500 Blood Pressure Location JERAD GONZALEZ APPLICATION SUPPORT DEVELOPER-BURIAL AGENT [facility] 04-24-2022 00:07-0500 Blood Pressure Method JERADANASTASIA OROURKEN APPLICATION SUPPORT DEVELOPER-BURIAL AGENT [facility] 04-24-2022 00:07-0500 Body height 155 cm JERAD GONZALEZ APPLICATION SUPPORT DEVELOPER-BURIAL AGENT [facility] 04-24-2022 00:07-0500 Body weight 90.9 kg JERAD GONZALEZ APPLICATION SUPPORT DEVELOPER-BURIAL AGENT [facility] 04-11-2022 02:44-0500 Diastolic blood pressure 67 mm[Hg] [facility] 04-11-2022 02:44-0500 Heart rate 74 /min [facility] 04-11-2022 02:44-0500 Respiratory rate 16 /min [facility] 04-11-2022 02:44-0500 SaO2% (BldA) [Mass fraction] 98 % [facility] 04-11-2022 02:44-0500 Systolic blood pressure 102 mm[Hg] [facility] 04-10-2022 23:56-0500 Body mass index (BMI) [Ratio] 38.7 kg/m2 [facility] 04-10-2022 23:56-0500 Body temperature 98.3 [degF] [facility] 04-10-2022 23:56-0500 Body weight 92.9 kg [facility] 03-22-2022 17:18-0400 Body height [address] ELIZABETH PERALTA MD [facility] 03-22-2022 17:18-0400 Body temperature 98.78 [degF] DR ELIZABETH PERALTA MD [facility] 03-22-2022 17:18-0400 Body weight [address] ELIZABETH PERALTA MD [facility] 03-22-2022 17:18-0400 Diastolic blood pressure 90 mm[Hg] DR ELIZABETH PERALTA MD [facility] 03-22-2022 17:18-0400 Heart rate 84 /min DR ELIZABETH PERALTA MD [facility] 03-22-2022 17:18-0400 Respiratory rate 16 /min DR ELIZABETH PERALTA MD [facility] 03-22-2022 17:18-0400 Systolic blood pressure 146 mm[Hg] DR ELIZABETH PERALTA MD [facility] 03-22-2022 03:29-0400 Diastolic blood pressure 74 mm[Hg] [facility] 03-22-2022 03:29-0400 Heart rate 78 /min [facility] 03-22-2022 03:29-0400 Respiratory rate 17 /min [facility] 03-22-2022 03:29-0400 SaO2% (BldA) [Mass fraction] 98 % [facility] 03-22-2022 03:29-0400 Systolic blood pressure 134 mm[Hg] [facility] 03-22-2022 00:10-0400 Body mass index (BMI) [Ratio] 36.3 kg/m2 [facility] 03-22-2022 00:10-0400 Body temperature 97.3 [degF] [facility] 03-22-2022 00:10-0400 Body weight 90.3 kg [facility] 02-28-2022 14:47-0400 Body temperature 99.39 [degF] Tulio Pompa MD Work Phone: [facility] 02-28-2022 14:47-0400 Body weight 92.26 kg Tulio Pompa MD Work Phone: [facility] 02-28-2022 14:47-0400 Diastolic blood pressure 80 mm[Hg] Tulio Pompa MD Work Phone: [facility] 02-28-2022 14:47-0400 Heart rate 102 /min Tulio Pompa MD Work Phone: [facility] 02-28-2022 14:47-0400 Respiratory rate 21 /min Tulio Pompa MD Work Phone: [facility] 02-28-2022 14:47-0400 SaO2% (BldA) [Mass fraction] 98 % Tulio Pompa MD Work Phone: [facility] 02-28-2022 14:47-0400 Systolic blood pressure 138 mm[Hg] Tulio Pompa MD Work Phone: [facility] 02-22-2022 14:50-0400 Body height 154.9 cm Xavier Josue MD Work Phone: [facility] 02-22-2022 14:50-0400 Body temperature 97.5 [degF] Xavier Josue MD Work Phone: [facility] 02-22-2022 14:50-0400 Body weight 93.89 kg Xavier Josue MD Work Phone: [facility] 02-22-2022 14:50-0400 Diastolic blood pressure 70 mm[Hg] Xavier Josue MD Work Phone: [facility] 02-22-2022 14:50-0400 Heart rate 108 /min Xavier Josue MD Work Phone: [facility] 02-22-2022 14:50-0400 SaO2% (BldA) [Mass fraction] 98 % Xavier Josue MD Work Phone: [facility] 02-22-2022 14:50-0400 Systolic blood pressure 108 mm[Hg] Xavier Josue MD Work Phone: [facility] 02-16-2022 15:01-0400 Body height 154.9 cm Fawn Herrera MD Work Phone: [facility] 02-16-2022 15:01-0400 Body temperature 96.91 [degF] aFwn Herrera MD Work Phone: [facility] 02-16-2022 15:01-0400 Body weight 94.17 kg Fawn Herrera MD Work Phone: [facility] 02-16-2022 15:01-0400 Diastolic blood pressure 72 mm[Hg] Fawn Herrera MD Work Phone: [facility] 02-16-2022 15:01-0400 Heart rate 101 /min Fawn Herrera MD Work Phone: [facility] 02-16-2022 15:01-0400 SaO2% (BldA) [Mass fraction] 98 % Fawn Herrera MD Work Phone: [facility] 02-16-2022 15:01-0400 Systolic blood pressure 102 mm[Hg] Fawn Herrera MD Work Phone: [facility] 02-15-2022 17:22-0400 Body height 155 cm CAS DURESKA DO [facility] 02-15-2022 17:22-0400 Body temperature 96.98 [degF] CAS DURESKA DO [facility] 02-15-2022 17:22-0400 Body weight 92.5 kg CAS DURESKA DO [facility] 02-15-2022 17:22-0400 Diastolic blood pressure 71 mm[Hg] CAS DURESKA DO [facility] 02-15-2022 17:22-0400 Heart rate 97 /min CAS DURESKA DO [facility] 02-15-2022 17:22-0400 Respiratory rate 20 /min CAS DURESKA DO [facility] 02-15-2022 17:22-0400 Systolic blood pressure 103 mm[Hg] CAS DURESKA DO [facility] 02-09-2022 12:23-0400 Body temperature 97.5 [degF] Netta SAWANT-C Work Phone: [facility] 02-09-2022 12:23-0400 Body weight 92.08 kg Netta SAWANT-C Work Phone: [facility] 02-09-2022 12:23-0400 Diastolic blood pressure 72 mm[Hg] Netta Higgins PA-C Work Phone: [facility] 02-09-2022 12:23-0400 Heart rate 72 /min Netta SAWANT-C Work Phone: [facility] 02-09-2022 12:23-0400 Respiratory rate 18 /min Netta Higgins PA-C Work Phone: [facility] 02-09-2022 12:23-0400 Systolic blood pressure 102 mm[Hg] Netta Higgins PA-C Work Phone: [facility] 12-09-2021 09:36-0400 Body height 154.9 cm Too Parker MD Work Phone: [facility] 12-09-2021 09:36-0400 Body temperature 97.5 [degF] Too Parker MD Work Phone: [facility] 12-09-2021 09:36-0400 Body weight 91.63 kg Too Parker MD Work Phone: [facility] 12-09-2021 09:36-0400 Diastolic blood pressure 65 mm[Hg] Too Parker MD Work Phone: [facility] 12-09-2021 09:36-0400 Heart rate 79 /min Too Parker MD Work Phone: [facility] 12-09-2021 09:36-0400 Respiratory rate 18 /min Too Parker MD Work Phone: [facility] 12-09-2021 09:36-0400 SaO2% (BldA) [Mass fraction] 98 % Too Parker MD Work Phone: [facility] 12-09-2021 09:36-0400 Systolic blood pressure 97 mm[Hg] Too Parker MD Work Phone: [facility] 12-03-2021 15:22-0400 Body height 154.9 cm Cory SAWANT-C Work Phone: [facility] 12-03-2021 15:22-0400 Body temperature 97.3 [degF] Cory Box PA-C Work Phone: [facility] 12-03-2021 15:22-0400 Body weight 91.17 kg Cory Box PA-C Work Phone: [facility] 12-03-2021 15:22-0400 Diastolic blood pressure 80 mm[Hg] Cory Box PA-C Work Phone: [facility] 12-03-2021 15:22-0400 Heart rate 98 /min Cory Box PA-C Work Phone: [facility] 12-03-2021 15:22-0400 Respiratory rate 14 /min Cory Box PA-C Work Phone: [facility] 12-03-2021 15:22-0400 SaO2% (BldA) [Mass fraction] 100 % Cory Box PA-C Work Phone: [facility] 12-03-2021 15:22-0400 Systolic blood pressure 108 mm[Hg] Cory Box PA-C Work Phone: [facility] 11-26-2021 15:04-0400 Diastolic blood pressure 80 mm[Hg] Dr. Will Brannon Work Phone: [facility] Work Phone: 11-26-2021 15:04-0400 Heart rate 89 /min Dr. Will Brannon Work Phone: [facility] Work Phone: 11-26-2021 15:04-0400 Respiratory rate 16 /min Dr. Will Brannon Work Phone: [facility] Work Phone: 11-26-2021 15:04-0400 SaO2% (BldA) [Mass fraction] 99 % Dr. Will Brannon Work Phone: [facility] Work Phone: 11-26-2021 15:04-0400 Systolic blood pressure 126 mm[Hg] Dr. Will Brannon Work Phone: [facility] Work Phone: 11-26-2021 12:44-0400 Body height 154.[address] Will Brannon Work Phone: [facility] Work Phone: 11-26-2021 12:44-0400 Body mass index (BMI) [Ratio] 37.5 kg/m2 Dr. Will Brannon Work Phone: [facility] Work Phone: 11-26-2021 12:44-0400 Body temperature 97.4 [degF] Dr. Will Brannon Work Phone: [facility] Work Phone: 11-26-2021 12:44-0400 Body weight [address] Will Brannon Work Phone: [facility] Work Phone: 11-22-2021 13:54-0400 Body temperature 98.2 [degF] Dr. Will Brannon Work Phone: [facility] Work Phone: 11-22-2021 13:54-0400 Diastolic blood pressure 74 mm[Hg] Dr. Will Brannon Work Phone: [facility] Work Phone: 11-22-2021 13:54-0400 Heart rate 65 /min Dr. Will Brannon Work Phone: [facility] Work Phone: 11-22-2021 13:54-0400 Respiratory rate 16 /min Dr. iWll Brannon Work Phone: [facility] Work Phone: 11-22-2021 13:54-0400 SaO2% (BldA) [Mass fraction] 96 % Dr. Will Brannon Work Phone: [facility] Work Phone: 11-22-2021 13:54-0400 Systolic blood pressure 109 mm[Hg] Dr. Will Brannon Work Phone: [facility] Work Phone: 11-21-2021 12:14-0400 Body weight 92.[address] Will Brannon Work Phone: [facility] Work Phone: 11-21-2021 02:09-0400 Body mass index (BMI) [Ratio] 38.5 kg/m2 Dr. Will Brannon Work Phone: [facility] Work Phone: 11-21-2021 01:49-0400 Body temperature 99 [degF] Dr. Will Brannon Work Phone: [facility] Work Phone: 11-21-2021 01:49-0400 Diastolic blood pressure 66 mm[Hg] Dr. Will Brannon Work Phone: [facility] Work Phone: 11-21-2021 01:49-0400 Heart rate 85 /min Dr. Will Brannon Work Phone: [facility] Work Phone: 11-21-2021 01:49-0400 Respiratory rate 20 /min Dr. Will Brannon Work Phone: [facility] Work Phone: 11-21-2021 01:49-0400 SaO2% (BldA) [Mass fraction] 96 % Dr. Will Brannon Work Phone: [facility] Work Phone: 11-21-2021 01:49-0400 Systolic blood pressure 111 mm[Hg] Dr. Will Brannon Work Phone: [facility] Work Phone: 11-20-2021 22:46-0400 Body height 154.[address] Will Brannon Work Phone: [facility] Work Phone: 11-20-2021 22:46-0400 Body mass index (BMI) [Ratio] 39.2 kg/m2 Dr. Will Brannon Work Phone: [facility] Work Phone: 11-20-2021 22:46-0400 Body weight 94.[address] Will Brannon Work Phone: [facility] Work Phone: 11-14-2021 23:08-0400 Body height 154.94 cm [facility] Work Phone: 11-14-2021 23:08-0400 Body mass index (BMI) [Ratio] 39.2 kg/m2 [facility] Work Phone: 11-14-2021 23:08-0400 Body temperature 95.1 [degF] [facility] Work Phone: 11-14-2021 23:08-0400 Body weight 94.34 kg [facility] Work Phone: 11-14-2021 23:08-0400 Diastolic blood pressure 80 mm[Hg] [facility] Work Phone: 11-14-2021 23:08-0400 Heart rate 91 /min [facility] Work Phone: 11-14-2021 23:08-0400 Respiratory rate 16 /min [facility] Work Phone: 11-14-2021 23:08-0400 SaO2% (BldA) [Mass fraction] 99 % [facility] Work Phone: 11-14-2021 23:08-0400 Systolic blood pressure 123 mm[Hg] [facility] Work Phone: 11-05-2021 03:26-0400 Diastolic blood pressure 73 mm[Hg] [facility] Work Phone: 11-05-2021 03:26-0400 Heart rate 81 /min [facility] Work Phone: 11-05-2021 03:26-0400 Respiratory rate 16 /min [facility] Work Phone: 11-05-2021 03:26-0400 SaO2% (BldA) [Mass fraction] 100 % [facility] Work Phone: 11-05-2021 03:26-0400 Systolic blood pressure 112 mm[Hg] [facility] Work Phone: 11-04-2021 23:46-0400 Body height 154.94 cm [facility] Work Phone: 11-04-2021 23:46-0400 Body mass index (BMI) [Ratio] 39.2 kg/m2 [facility] Work Phone: 11-04-2021 23:46-0400 Body temperature 98.6 [degF] [facility] Work Phone: 11-04-2021 23:46-0400 Body weight 94.34 kg [facility] Work Phone: 10-27-2021 13:54-0400 Body height 154.9 cm Sandra Maribel DO Work Phone: [facility] 10-27-2021 13:54-0400 Body weight 94.35 kg Sandra Maribel DO Work Phone: [facility] 09-22-2021 08:38-0400 Body height 154.9 cm Pacc 2 Work Phone: [facility] 09-22-2021 08:38-0400 Body temperature 97.7 [degF] Pacc 2 Work Phone: [facility] 09-22-2021 08:38-0400 Body weight 98.97 kg Pacc 2 Work Phone: [facility] 09-22-2021 08:38-0400 Diastolic blood pressure 76 mm[Hg] Pacc 2 Work Phone: [facility] 09-22-2021 08:38-0400 Heart rate 73 /min Pacc 2 Work Phone: [facility] 09-22-2021 08:38-0400 SaO2% (BldA) [Mass fraction] 97 % Pacc 2 Work Phone: [facility] 09-22-2021 08:38-0400 Systolic blood pressure 142 mm[Hg] Pacc 2 Work Phone: [facility] 09-17-2021 17:07-0400 Heart rate 88 /min [facility] Work Phone: 09-17-2021 17:07-0400 Respiratory rate 17 /min [facility] Work Phone: 09-17-2021 17:07-0400 SaO2% (BldA) [Mass fraction] 99 % [facility] Work Phone: 09-17-2021 14:28-0400 Body height 152.4 cm [facility] Work Phone: 09-17-2021 14:28-0400 Body mass index (BMI) [Ratio] 42.8 kg/m2 [facility] Work Phone: 09-17-2021 14:28-0400 Body temperature 97.7 [degF] [facility] Work Phone: 09-17-2021 14:28-0400 Body weight 99.5 kg [facility] Work Phone: 09-17-2021 14:28-0400 Diastolic blood pressure 96 mm[Hg] [facility] Work Phone: 09-17-2021 14:28-0400 Systolic blood pressure 133 mm[Hg] [facility] Work Phone: 08-26-2021 15:32-0400 Body temperature 97.2 [degF] Jaimee Carbajal APPLICATION SUPPORT DEVELOPER.[employer]ENT Work Phone: [facility] 08-26-2021 15:32-0400 Body weight 99.79 kg Jaimee Carbajal APPLICATION SUPPORT DEVELOPER.[employer] AGENT Work Phone: [facility] 08-26-2021 15:32-0400 Diastolic blood pressure 82 mm[Hg] Jaimee Dahlhausen APPLICATION SUPPORT DEVELOPER.[facility] Work Phone: [facility] 08-26-2021 15:32-0400 Heart rate 76 /min Jaimee Dahlhausen APPLICATION SUPPORT DEVELOPER.[facility] Work Phone: [facility] 08-26-2021 15:32-0400 Respiratory rate 18 /min Jaimee Dahlhausen APPLICATION SUPPORT DEVELOPER.[employer] AGENT Work Phone: [facility] 08-26-2021 15:32-0400 SaO2% (BldA) [Mass fraction] 96 % Jaimee Dahlhausen APPLICATION SUPPORT DEVELOPER.[employer] AGENT Work Phone: [facility] 08-26-2021 15:32-0400 Systolic blood pressure 98 mm[Hg] Jaimee Dahlhausen APPLICATION SUPPORT DEVELOPER.[facility] Work Phone: [facility] 08-20-2021 06:14-0400 Diastolic blood pressure 79 mm[Hg] [facility] Work Phone: 08-20-2021 06:14-0400 Heart rate 85 /min [facility] Work Phone: 08-20-2021 06:14-0400 Respiratory rate 18 /min [facility] Work Phone: 08-20-2021 06:14-0400 SaO2% (BldA) [Mass fraction] 100 % [facility] Work Phone: 08-20-2021 06:14-0400 Systolic blood pressure 122 mm[Hg] [facility] Work Phone: 08-20-2021 03:58-0400 Body mass index (BMI) [Ratio] 41.5 kg/m2 [facility] Work Phone: 08-20-2021 03:58-0400 Body temperature 98.6 [degF] [facility] Work Phone: 08-20-2021 03:58-0400 Body weight 99.79 kg [facility] Work Phone: 07-07-2021 21:53-0500 Body mass index (BMI) [Ratio] 42.5 kg/m2 [facility] Work Phone: 07-07-2021 21:53-0500 Body weight 102.05 kg [facility] Work Phone: 07-07-2021 21:25-0500 Body temperature 97.1 [degF] [facility] Work Phone: 07-07-2021 21:25-0500 Diastolic blood pressure 97 mm[Hg] [facility] Work Phone: 07-07-2021 21:25-0500 Heart rate 83 /min [facility] Work Phone: 07-07-2021 21:25-0500 Respiratory rate 16 /min [facility] Work Phone: 07-07-2021 21:25-0500 SaO2% (BldA) [Mass fraction] 97 % [facility] Work Phone: 07-07-2021 21:25-0500 Systolic blood pressure 129 mm[Hg] [facility] Work Phone: 06-30-2021 21:28-0500 Body mass index (BMI) [Ratio] 42.5 kg/m2 [facility] Work Phone: 06-30-2021 21:28-0500 Body temperature 97.8 [degF] [facility] Work Phone: 06-30-2021 21:28-0500 Body weight 102.05 kg [facility] Work Phone: 06-30-2021 21:28-0500 Diastolic blood pressure 108 mm[Hg] [facility] Work Phone: 06-30-2021 21:28-0500 Heart rate 103 /min [facility] Work Phone: 06-30-2021 21:28-0500 Respiratory rate 16 /min [facility] Work Phone: 06-30-2021 21:28-0500 SaO2% (BldA) [Mass fraction] 100 % [facility] Work Phone: 06-30-2021 21:28-0500 Systolic blood pressure 152 mm[Hg] [facility] Work Phone: 06-28-2021 12:59-0500 Heart rate 89 /min [facility] Work Phone: 06-28-2021 12:59-0500 Respiratory rate 15 /min [facility] Work Phone: 06-28-2021 12:59-0500 SaO2% (BldA) [Mass fraction] 99 % [facility] Work Phone: 06-28-2021 11:34-0500 Body mass index (BMI) [Ratio] 42.7 kg/m2 [facility] Work Phone: 06-28-2021 11:34-0500 Body temperature 97.8 [degF] [facility] Work Phone: 06-28-2021 11:34-0500 Body weight 102.5 kg [facility] Work Phone: 06-28-2021 11:34-0500 Diastolic blood pressure 95 mm[Hg] [facility] Work Phone: 06-28-2021 11:34-0500 Systolic blood pressure 136 mm[Hg] [facility] Work Phone: 06-28-2021 00:29-0500 Heart rate 88 /min [facility] Work Phone: 06-28-2021 00:29-0500 Respiratory rate 18 /min [facility] Work Phone: 06-28-2021 00:29-0500 SaO2% (BldA) [Mass fraction] 98 % [facility] Work Phone: 06-27-2021 22:21-0500 Body mass index (BMI) [Ratio] 43 kg/m2 [facility] Work Phone: 06-27-2021 22:21-0500 Body temperature 98.8 [degF] [facility] Work Phone: 06-27-2021 22:21-0500 Body weight 103.4 kg [facility] Work Phone: 06-27-2021 22:21-0500 Diastolic blood pressure 92 mm[Hg] [facility] Work Phone: 06-27-2021 22:21-0500 Systolic blood pressure 156 mm[Hg] [facility] Work Phone: 06-04-2021 00:19-0500 Respiratory rate 18 /min [facility] Work Phone: 06-03-2021 23:15-0500 Body temperature 98.4 [degF] [facility] Work Phone: 06-03-2021 23:15-0500 Diastolic blood pressure 84 mm[Hg] [facility] Work Phone: 06-03-2021 23:15-0500 Heart rate 92 /min [facility] Work Phone: 06-03-2021 23:15-0500 SaO2% (BldA) [Mass fraction] 99 % [facility] Work Phone: 06-03-2021 23:15-0500 Systolic blood pressure 135 mm[Hg] [facility] Work Phone: 06-03-2021 21:47-0500 Body mass index (BMI) [Ratio] 42.5 kg/m2 [facility] Work Phone: 06-03-2021 21:47-0500 Body weight 102.05 kg [facility] Work Phone: 12-01-2021 23:35-0500 Diastolic blood pressure 70 mm[Hg] DR DANIELA VARGAS MD [facility] 04-28-2021 23:35-0500 Heart rate 86 /min DR DANIELA VARGAS MD [facility] 04-28-2021 23:35-0500 Respiratory rate 18 /min DR DANIELA VARGAS MD [facility] 04-28-2021 23:35-0500 Systolic blood pressure 120 mm[Hg] DR DANIELA VARGAS MD [facility] 04-28-2021 20:48-0500 Body height 157.[address] DANIELA VARGAS MD [facility] 04-28-2021 20:48-0500 Body temperature 98.96 [degF] DR DANIELA VARGAS MD [facility] 04-28-2021 20:48-0500 Body weight 102.[address] DANIELA VARGAS MD [facility] 04-28-2021 20:48-0500 Diastolic blood pressure 77 mm[Hg] DR DANIELA VARGAS MD [facility] 04-28-2021 20:48-0500 Heart rate 90 /min DR DANIELA VARGAS MD [facility] 04-28-2021 20:48-0500 Respiratory rate 20 /min DR DANIELA VARGAS MD [facility] 04-28-2021 20:48-0500 Systolic blood pressure 123 mm[Hg] DR DANIELA VARGAS MD [facility] Encounters Encounter Date Encounter Type Care Provider Facility Start: 11-19-2024 End: 11-19-2024 ambulatory Nasrin Moreno ABDELRAHMAN [facility] Start: 11-19-2024 End: 11-19-2024 Patient encounter procedure Nasrin Moreno ABDELRAHMAN [facility] Comment on above: Population Health Na vigation Outreach ([facility]/Workbench/ACO ) Start: 2024 End: 2024 Telephone encounter Cory Box PA-C Work Phone: Urology Comment on above: Appointment Start: 10-14-2024 End: 10-14-2024 ambulatory Nasrin Moreno MA [facility] Start: 10-14-2024 End: 10-14-2024 Patient encounter procedure Nasrin Moreno MA [facility] Comment on above: Population Health Na vigation Outreach ([facility]/Work[facility]/ACO ) Start: 10-08-2024 End: 10-08-2024 Nursing evaluation of patient and report Nurse Urol [facility] Work Phone: Urology Comment on above: Neurogenic bladder ( Primary Dx) Start: 10-08-2024 End: 10-08-2024 ambulatory [facility] Facility:[facility] Start: 10-04-2024 End: 10-07-2024 Orders Only Cory Box PA-C Work Phone: Urology Comment on above: Neurogenic bladder ( Primary Dx) Start: 09-09-2024 ambulatory [facility] Facility :[facility] Start: [facility] Start: 09-03-2024 [facility] Facility :[facility] Start: 09-03-2024 [facility] Start: 09-02-2024 ambulatory Will Brannon Facility :[facility] Start: 09-02-2024 Dr. Emilee Richard MD [facility] Start: 08-29-2024 End: 08-29-2024 ambulatory WILL BRANNON Facility:[facility] Start: 08-26-2024 ambulatory Will Brannon Facility :[facility] Start: 08-26-2024 Dr. Emilee Richard MD [facility] Start: 08-19-2024 ambulatory Will Brannon Facility :[facility] Start: 08-19-2024 Dr. Emilee Rihcard MD [facility] Start: 08-16-2024 End: 08-16-2024 Chart abstracting Will Brannon MD Work Phone: [facility] Comment on above: Outside Ortho Proced ure Start: 08-16-2024 Dr. Quynh washington DO [facility] Work Phone: Start: 08-15-2024 Dr. Quynh washington [facility] Work Phone: Start: 08-14-2024 End: 08-14-2024 Chart abstracting Will Brannon MD Work Phone: [facility] Comment on above: Outside Infectious D isease Start: 08-14-2024 Dr. Quynh washington DO [facility] Work Phone: Start: 08-13-2024 [facility] Work Phone: Start: 08-12-2024 Dr. Quynh [facility] Work Phone: Start: 08-12-2024 End: 08-12-2024 Chart abstracting Will Brannon MD Work Phone: [facility] Comment on above: ER Discharge Summary Start: 08-11-2024 ambulatory Will Brannon Facility :[facility] Start: 08-11-2024 End: 08-16-2024 Evaluation and management of inpatient Dr. Will Brannon MD Work Phone: [facility] Work Phone: Start: 08-11-2024 End: 08-16-2024 Dr. Ramana Rose DO -Progressive Care Unit Work Phone: Start: 08-01-2024 End: 08-01-2024 Chart abstracting Will Brannon MD Work Phone: [facility] Comment on above: ER Discharge Summary Start: 07-31-2024 End: 07-31-2024 Dr. Will Brannon MD Work Phone: -Emergency Department Work Phone: Start: 07-31-2024 End: 07-31-2024 Emergency department patient visit [facility] Facility:[facility] Start: 07-16-2024 End: 07-16-2024 ambulatory [facility] Facility:[facility] Start: 07-16-2024 End: 07-16-2024 Nursing evaluation of patient and report Nurse Urol [facility] Work Phone: Urology Comment on above: Neurogenic bladder ( Primary Dx) Start: 07-11-2024 End: 07-11-2024 Dr. [facility] Work [facility] Start: 07-11-2024 End: 07-11-2024 Emergency department patient visit Dre Deal Facility:[facility] Start: 07-11-2024 End: 07-11-2024 Patient encounter procedure Devin George APRN.[employer]IAL AGENT Work Phone: [facility] Comment on above: Migraine without aur a and without status migrainosus, not intractable (Primary Dx) Start: 07-11-2024 End: 07-11-2024 ambulatory WILL BRANNON Facility:[facility] Start: 07-09-2024 End: 07-09-2024 Patient encounter procedure Araceli Torres PA-C Work Phone: Neurology Comment on above: Intractable chronic migraine with aura and without status migrainosus (Primary Dx); Neuropathy; Paresthesias; Spina bifida, unspecified hydrocephalus presence, unspecified spinal region (HCC); Cervical vertebral fusion Start: 07-09-2024 End: 07-09-2024 ambulatory WILL BRANNON Facility:[facility] Start: 06-26-2024 End: 06-28-2024 E-mail encounter from caregiver Denae Monk ABDELRAHMAN [facility] Start: 06-26-2024 End: 06-28-2024 Patient encounter procedure Denae Monk ABDELRAHMAN [facility] Comment on above: Appointment reschedu le Start: 06-13-2024 End: 06-13-2024 Chart abstracting Will Brannon MD Work Phone: [facility] Comment on above: ER Discharge Summary Start: 06-12-2024 End: 06-13-2024 Dr. Rigo Espinal DO -Emergency Departme nt Work Phone: Start: 06-12-2024 End: 06-13-2024 Emergency department patient visit Rigo Espinal Facility:[facility] Start: 06-11-2024 End: 06-11-2024 ambulatory WILL BRANNON Facility:[facility] Start: 06-11-2024 End: 06-11-2024 Nursing evaluation of patient and report Nurse Urol [facility] Work Phone: Urology Comment on above: Suprapubic catheter (HCC) (Primary Dx); Neurogenic bladder Start: 06-10-2024 End: 06-10-2024 Chart abstracting Denae Monk MA [facility] Comment on above: ER F/U ([facility] - ER ) Start: 06-09-2024 End: 06-09-2024 Dr. Arnold Caban DO -Emergency Departmen t Work Phone: Start: 06-09-2024 End: 06-09-2024 Emergency department patient visit Arnold Caban Facility:[facility] Start: 06-02-2024 End: 06-02-2024 Emergency department patient visit SOLEDAD VARGAS MD [facility] Start: 05-21-2024 End: 05-21-2024 Dr. Will Brannon MD -Nuclear Medicine, [facility] Work Phone: Start: 05-21-2024 End: 05-21-2024 ambulatory Will Brannon Facility:[facility] Start: 05-07-2024 End: 05-07-2024 ambulatory WILL BRANNON Facility:[facility] Start: 05-07-2024 End: 05-07-2024 Nursing evaluation of patient and report Nurse Urol [facility] Work Phone: Urology Comment on above: Neurogenic bladder ( Primary Dx) Start: 05-03-2024 End: 05-03-2024 ambulatory WILL BRANNON Facility:[facility] Start: 05-03-2024 End: 05-03-2024 Patient encounter procedure Sabra Nevarez OD Work Phone: Ophthalmology Comment on above: Type 2 diabetes isela itus without retinopathy (HCC) (Primary Dx); Myopia, bilateral; Regular astigmatism of both eyes; Dry eye syndrome of left eye Start: 05-02-2024 End: 05-03-2024 Telephone encounter Cory Box PA-C Work Phone: Urology Comment on above: Results Start: 04-29-2024 End: 04-29-2024 ambulatory WILL BRANNON Facility:[facility] Start: 04-29-2024 End: 04-30-2024 Telephone encounter Will Brannno MD Work Phone: [facility] Comment on above: Results Start: 04-25-2024 End: 04-26-2024 Telephone encounter Will Brannon MD Work Phone: [facility] Comment on above: Results Start: 04-24-2024 Dr. Will ca MD -Speech Therapy Work Phone: Start: 04-24-2024 End: 04-24-2024 ambulatory Will Brannon Facility:[facility] Start: 04-24-2024 End: 04-24-2024 ambulatory WILL BRANNON Facility:[facility] Start: 04-24-2024 End: 04-24-2024 Subsequent hospital visit by physician [facility] Comment on above: Encounter for screen ing mammogram for breast cancer [Z12.31] Start: 04-18-2024 End: 04-18-2024 ambulatory WILL BRANNON Facility:[facility] Start: 04-18-2024 End: 04-18-2024 Subsequent hospital visit by physician [facility] Work Phone: Radiology Comment on above: Thyroid cyst [E04.1] Start: 04-15-2024 End: 04-15-2024 ambulatory Jos Alexander MD Work Phone: Hematology/Oncology Comment on above: Splenic infarct (Martha penelope Dx) Start: 04-15-2024 End: 04-15-2024 Telemedicine consultation with patient Jos Alexander MD Work Phone: Hematology/Oncology Start: 04-10-2024 End: 04-10-2024 ambulatory WILL BRANNON Facility:[facility] Start: 04-10-2024 End: 04-10-2024 Ophthalmic examination and evaluation Will Brannon MD Work Phone: [facility] Start: 04-10-2024 End: 04-10-2024 Patient encounter procedure Will Brannon MD Work Phone: [facility] [place] Comment on above: Type 2 diabetes isela itus with proteinuria (HCC) (HCC) (Primary Dx); 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); Diabetes mellitus with peripheral vascular disease (HCC); Diabetic eye exam (HCC); Essential hypertension; Mixed hyperlipidemia; Paroxysmal SVT (supraventricular tachycardia) (HCC); Primary insomnia; Neuropathy; Bilateral leg edema; Anxiety and depression; Dysthymic disorder; Major depressive disorder, recurrent, mild (HCC); Panic attacks; Migraine without aura and without status migrainosus, not intractable; Thyroid cyst; Hypomagnesemia; Lipomeningocele (HCC); Obesity, Class II, BMI 35-39.9; Spina bifida, unspecified hydrocephalus presence, unspecified spinal region (HCC); Encounter for screening mammogram for breast cancer; Esophageal dysphagia; Nausea Start: 04-06-2024 End: 04-07-2024 Emergency department patient visit TYLER BARRETT DO [facility] Start: 04-04-2024 End: 04-04-2024 ambulatory [facility] Facility:[facility] Start: 04-02-2024 End: 04-02-2024 [facility] Facility:[facility] Start: 04-02-2024 End: 04-02-2024 Nursing evaluation of patient and report Nurse Urol [facility] Work Phone: Urology Comment on above: Neurogenic bladder ( Primary Dx) Start: 04-02-2024 End: 04-02-2024 Admission to same day surgery center Mellisa Paul APRN.BURIAL AGENT Work Phone: General Surgery Comment on above: H. Pylori Start: 04-02-2024 End: 04-02-2024 E-mail encounter from caregiver Mellisa Paul BURIAL AGENT Work Phone: General Surgery Start: 04-01-2024 End: 04-01-2024 ambulatory [facility] Facility:[facility] Start: 04-01-2024 End: 04-01-2024 Patient encounter procedure Mellisa Humberto WATKINSBURIAL AGENT Work Phone: General Surgery Comment on above: Oropharyngeal dyspha maría (Primary Dx) Start: 03-25-2024 End: 03-25-2024 [facility] Facility:[facility] Start: 03-25-2024 End: 03-25-2024 Subsequent hospital visit by physician Xavier Josue MD Work Phone: Ambulatory Surgery Comment on above: Oropharyngeal dyspha maría [R13.12] Start: 03-21-2024 End: 03-21-2024 Visit (SP) Office Jos Alexander MD Work Phone: Hematology/Oncology Comment on above: Splenic infarct (Martha penelope Dx); Left upper quadrant pain; Encounter for screening for cardiovascular disorders Start: 03-18-2024 End: 03-18-2024 [facility] Facility:[facility] Start: 03-18-2024 End: 03-18-2024 Subsequent hospital visit by physician [facility] Work Phone: Radiology Comment on above: Splenic infarct [D73 .5] Start: 03-08-2024 End: 03-08-2024 E-mail encounter from caregiver Nurse cyndy [facility] Work Phone: General Surgery Start: 03-08-2024 End: 03-08-2024 Follow-up encounter Nurse Allie [facility] Work Phone: General Surgery Comment on above: EGD (upper scope) fo llow-up Start: 03-04-2024 End: 03-04-2024 ambulatory WILL BRANNON Facility:[facility] Start: 03-04-2024 End: 03-04-2024 Patient encounter procedure Xavier Josue MD Work Phone: General Surgery Comment on above: Oropharyngeal dyspha maría (Primary Dx) Start: 03-04-2024 End: 03-06-2024 Chart abstracting Denae Monk MA [facility] Comment on above: ED Follow-up Start: 03-03-2024 End: 03-03-2024 Emergency department patient visit Harry Billings Facility:[facility] Start: 03-01-2024 End: 03-06-2024 Telephone encounter Will Brannon MD Work Phone: [facility] Comment on above: Results Start: 02-27-2024 End: 02-27-2024 Nursing evaluation of patient and report Nurse Urol [facility] Work Phone: Urology Comment on above: Neurogenic bladder ( Primary Dx) Start: 02-27-2024 End: 02-27-2024 ambulatory WILL BRANNON Facility:[facility] Start: 02-25-2024 End: 02-26-2024 Emergency department patient visit MARTIN CHAHAL MD [facility] Start: 02-10-2024 End: 02-10-2024 Emergency department patient visit Alexander Hooks Facility:[facility] Start: 02-02-2024 End: 02-03-2024 Emergency department patient visit LUDWIG MAYER DO [facility] Start: 01-31-2024 End: 02-01-2024 Ref[facility] Comment on above: Refill Request Start: 01-30-2024 End: 01-30-2024 Nursing evaluation of patient and report [facility] Work Phone: Urology Comment on above: Neurogenic bladder ( Primary Dx) Start: 01-30-2024 End: 01-30-2024 ambulatory WILL BRANNON Facility:[facility] Start: 01-16-2024 End: 01-16-2024 ambulatory WILL BRANNON Facility:[facility] Start: 01-16-2024 End: 01-16-2024 Nursing evaluation of patient and report Ramana Bourgeois RN Work Phone: Endocrinology Comment on above: Type 2 diabetes isela itus with proteinuria (HCC) (HCC); 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); Diabetes mellitus with peripheral vascular disease (HCC) Start: 01-03-2024 End: 01-03-2024 Patient encounter procedure Araceli Torres PA-C Work Phone: Neurology Comment on above: Spina bifida, unspec ified hydrocephalus presence, unspecified spinal region (HCC) (Primary Dx); Intractable chronic migraine with aura and without status migrainosus; Neuropathy; Paresthesias; Cervical vertebral fusion Start: 01-03-2024 End: 01-03-2024 ambulatory WILL BRANNON Facility:[facility] Start: 01-02-2024 End: 01-02-2024 Nursing evaluation of patient and report Nurse Urol [facility] Work Phone: Urology Comment on above: Neurogenic bladder ( Primary Dx) Start: 01-02-2024 End: 01-02-2024 ambulatory WILL BRANNON Facility:[facility] Start: 01-02-2024 Chart abstracting Will ca MD Work Phone: [facility] [place] Comment on above: Outside Cardiac Even t Monitor Start: 12-21-2023 Telephone encounter Nilda basilio APPLICATION SUPPORT DEVELOPER.BURIAL AGENT Work Phone: Endocrinology Comment on above: Orders (OV notes ) Start: 12-20-2023 End: 12-20-2023 ambulatory WILL BRANNON Facility:[facility] Start: 12-08-2023 Telephone encounter Daiana Sweeney MD Work Phone: [facility] Comment on above: Schedule Surgery; Pa tient Update Start: 12-06-2023 Telephone encounter Nilda basilio APPLICATION SUPPORT DEVELOPER.BURIAL AGENT Work Phone: Orthopaedics Comment on above: Dexcom not covered b y insurance New Patient Orders Start: 12-06-2023 End: 12-06-2023 ambulatory WILL BRANNON Facility:[facility] Start: 12-06-2023 End: 12-06-2023 Patient encounter procedure Nilda Underwood APPLICATION SUPPORT DEVELOPER.BURIAL AGENT Work Phone: Endocrinology Comment on above: Diabetes mellitus tr eated with insulin (HCC) (Primary Dx); Diabetes mellitus type 2 with ketoacidosis, uncontrolled (HCC) Start: 12-05-2023 End: 12-05-2023 Patient encounter procedure Cory Box PA-C Work Phone: Urology Comment on above: Neurogenic bladder ( Primary Dx); Suprapubic catheter (HCC) Start: 12-05-2023 End: 12-05-2023 ambulatory [facility] Facility:[facility] Start: 12-04-2023 End: 12-04-2023 Patient encounter procedure Devin George APPLICATION SUPPORT DEVELOPER.BURIAL AGENT Work Phone: [facility] [place] Comment on above: Splenic infarct (Martha penelope Dx); Urinary tract infection with hematuria, site unspecified; Acute pyelonephritis; C. difficile colitis; Colostomy in place (HCC); Suprapubic catheter (HCC) Start: 12-04-2023 End: 12-04-2023 ambulatory WILL BRANNON Facility:[facility] Start: 12-04-2023 Telephone encounter Will Brannon MD Work Phone: [facility] Start: 11-18-2023 End: 11-22-2023 Evaluation and management of inpatient KRISTOFER LARKIN MD [facility] Start: 11-17-2023 End: 11-18-2023 Emergency department patient visit CAS PAYNE [facility] Start: 11-09-2023 Chart abstracting Will ca MD Work Phone: [facility] Comment on above: Received Outside Med ical Records (ER Report/) Start: 11-07-2023 End: 11-07-2023 Emergency department patient visit Agustin Aguilar Facility:[facility] Start: 11-07-2023 Chart abstracting Will ca MD Work Phone: [facility] Comment on above: Ext / micro labs Outside [id number] Ordered Start: 10-31-2023 E-mail encounter fro m caregiver Olivia Green PA-C Work Phone: Radiology Start: 10-31-2023 Follow-up encounter Olivia swann PA-C Work Phone: Radiology Comment on above: actioanble findings follow up Start: 10-31-2023 Telephone encounter Daiana Sweeney MD Work Phone: [facility] Comment on above: Appointment; Patient Update Start: 10-30-2023 End: 11-02-2023 Emergency department patient visit WILL BRANNON MD Facility:B Start: 10-30-2023 End: 11-02-[address] WALLACE BRUNSON MD [facility] Start: 10-13-2023 End: 10-13-2023 Nursing evaluation of patient and report Michele Cardozo RN [facility] Comment on above: Tethered cord (HCC) (Primary Dx) Start: 10-12-2023 Telephone encounter Sandrita Johnson MD Work Phone: Endocrinology Comment on above: Appointment Start: 10-11-2023 Telephone encounter Zainab atkinson APRN.CNP Work Phone: Pre Anesthesia Start: 10-11-2023 End: 10-11-2023 [facility] Work [facility] Start: 10-11-2023 End: 10-11-[address] [facility] Work Phone: Pre Anesthesia Comment on above: Pre-op evaluation (P rimary Dx); Spina bifida, unspecified hydrocephalus presence, unspecified spinal region (HCC); Mixed hyperlipidemia; Essential hypertension; Diabetes mellitus with peripheral vascular disease (HCC); Neurogenic bowel; Fatty liver; Neurogenic bladder; Anxiety and depression; Bilateral leg edema; Colostomy in place (HCC); Paroxysmal SVT (supraventricular tachycardia) (HCC); Tethered cord (HCC); Pre-op testing Start: 10-11-2023 End: 10-11-[address] [facility] Work Phone: [facility] Start: 10-11-2023 End: 10-11-[address] 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); Diabetes mellitus with peripheral vascular disease (HCC); Mixed hyperlipidemia Start: 10-07-2023 End: 10-07-2023 [facility]: Start: 10-05-2023 Telephone encounter Devin wan APRN.CNP Work Phone: [facility] Comment on above: Results Start: 10-03-2023 End: 10-03-2023 Nursing evaluation of patient and report Nurse Urol [facility] Work Phone: Urology Comment on above: Neurogenic bladder ( Primary Dx) Start: 10-03-2023 E-mail encounter fro m caregiver Olivia Green PA-C Work Phone: Radiology Start: 10-03-2023 Follow-up encounter Olivia swann PA-C Work Phone: Radiology Comment on above: actioanble findings follow up Start: 09-28-2023 End: 09-28-2023 Patient encounter procedure Devin George APRN.BURIAL AGENT Work Phone: [facility] Comment on above: Medicare annual well ness visit, subsequent (Primary Dx); 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); 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); Diabetes mellitus with peripheral vascular disease (HCC); Mixed hyperlipidemia; Low TSH level; Bilateral leg edema; Medication management; Paroxysmal SVT (supraventricular tachycardia) (HCC); Hyperthyroidism; Seasonal allergic rhinitis, unspecified trigger; Colostomy in place (HCC); Encounter for care or replacement of suprapubic tube (HCC); Primary insomnia; Major depressive disorder, recurrent, mild (HCC); Moderate recurrent major depression (HCC) Start: 09-26-2023 ambulatory Daiana Sweeney MD Work Phone: [facility] Start: 09-26-2023 Patient encounter status Daiana Sweeney MD Work Phone: [facility] Start: 09-24-2023 End: 09-25-2023 Emergency department patient visit TYLER BARRETT [facility] Start: 09-22-2023 Telephone encounter Daiana Sweeney MD Work Phone: [facility] Comment on above: Schedule Surgery Start: 09-21-2023 End: 09-21-2023 Patient encounter procedure Daiana Sweeney MD Work Phone: [facility] Comment on above: Lipomeningocele (HCC ) Start: 09-05-2023 End: 09-05-2023 Nursing evaluation of patient and report Nurse Urol [facility] Work Phone: Urology Comment on above: Neurogenic bladder ( Primary Dx) Start: 08-18-2023 End: 08-18-2023 Subsequent hospital visit by physician Mri Radio [facility] (I-Stat/1.5t) Work Phone: Radiology Comment on above: Spinal stenosis of c ervical region [M48.02] Start: 08-16-2023 End: 08-16-2023 Patient encounter procedure Araceli Torres PA-C Work Phone: Neurology Comment on above: Cervical vertebral f usion (Primary Dx); Positional headache; Intractable chronic migraine with aura and without status migrainosus; Paresthesias; Spina bifida, unspecified hydrocephalus presence, unspecified spinal region (HCC); Spinal stenosis of lumbar region without neurogenic claudication Start: 08-14-2023 Chart abstracting Will ca MD Work Phone: [facility] Start: 08-13-2023 End: 08-13-2023 Emergency department patient visit [facility] Work Phone: Start: 07-26-2023 Chart abstracting Will ca MD Work Phone: [facility] Comment on above: Outside Imaging Start: 07-25-2023 End: 07-25-2023 ambulatory [facility] Work Phone: Start: 07-25-2023 End: 07-25-2023 Patient encounter procedure [facility], [facility] Work Phone: Start: 07-19-2023 End: 07-20-2023 Emergency department patient visit MARTIN CHAHAL MD [facility] Start: 07-18-2023 End: 07-18-2023 Patient encounter procedure Stephan Nicholson MD Work Phone: [facility] [place] Comment on above: Lipomeningocele (HCC ) (Primary Dx); Spinal stenosis of cervical region; Radiculopathy of lumbar region; Chronic bilateral low back pain without sciatica Start: 07-15-2023 End: 07-15-2023 Emergency department patient visit BRADY DOMINGUEZ MD [facility] Start: 07-04-2023 End: 07-04-2023 Nursing evaluation of patient and report Nurse Urol [facility] Work Phone: Urology Comment on above: Neurogenic bladder ( Primary Dx) Start: 06-07-2023 End: 06-07-2023 Emergency department patient visit JHONY VAZQUEZ DO [facility] Start: 05-10-2023 End: 05-11-2023 ambulatory ARACELI TORRES Facility:[facility] Start: 05-08-2023 Telephone encounter Araceli castro PA-C Work Phone: Neurology Start: 05-07-2023 Telephone encounter Will Brannon MD Work Phone: [facility] Comment on above: Results Start: 05-02-2023 End: 05-02-2023 Nursing evaluation of patient and report Nurse Urol [facility] Work Phone: Urology Comment on above: Neurogenic bladder ( Primary Dx) Start: 05-02-2023 Telephone encounter Araceli castro PA-C Work Phone: Neurology Comment on above: Patient Update Start: 05-02-2023 End: 05-02-2023 Patient encounter procedure Araceli Torres PA-C Work Phone: Neurology Comment on above: Intractable chronic migraine with aura and without status migrainosus (Primary Dx); Positional headache; Obstructive sleep apnea; Neuropathy; Paresthesias; Abnormal reflex Encounter for screen ing for malignant neoplasm of cervix (Primary Dx); Abnormal uterine bleeding (AUB); Class 2 obesity with body mass index (BMI) of 35.0 to 35.9 in adult, unspecified obesity type, unspecified whether serious comorbidity present; 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) Start: 04-24-2023 End: 04-24-2023 Patient encounter procedure Xavier Josue MD Work Phone: General Surgery Comment on above: Thyroid nodule (Prim venu Dx) Start: 04-20-2023 End: 04-21-2023 Emergency department patient visit [facility] Work Phone: Start: 04-13-2023 End: 04-13-2023 ambulatory [facility] Work Phone: Start: 04-13-2023 End: 04-13-2023 Patient encounter procedure [facility]Laboratory, Specimen Work Phone: Start: 04-13-2023 End: 04-13-2023 Patient encounter procedure Xavier Josue MD Work Phone: General Surgery Comment on above: Thyroid nodule (Prim venu Dx) Start: 04-13-2023 Telephone encounter Will Brannon MD Work Phone: [facility] Comment on above: Results Start: 04-10-2023 End: 04-10-2023 Patient encounter procedure Xavier Josue MD Work Phone: General Surgery Comment on above: Thyroid nodule (Prim venu Dx) Start: 04-06-2023 Documentation procedure Mammog patria Coordinator [facility] Start: 04-06-2023 Letter encounter Mammography Coordinator [facility] Department Start: 04-04-2023 End: 04-04-2023 Nursing evaluation of patient and report Nurse Urol [facility] Work Phone: Urology Comment on above: Neurogenic bladder ( Primary Dx) Start: 03-07-2023 End: 03-07-2023 Nursing evaluation of patient and report Nurse Urol [facility] Work Phone: Urology Comment on above: Neurogenic bladder ( Primary Dx) Start: 02-27-2023 Telephone encounter Will Brannon MD Work Phone: [facility] [place] Comment on above: Results Start: 02-21-2023 End: 02-25-2023 Evaluation and management of inpatient 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 APPLICATION SUPPORT DEVELOPER-[facility] Start: 02-15-2023 ambulatory Will morales MD Work Phone: [facility] Start: 02-02-2023 End: 02-02-2023 Emergency department patient visit [facility] Work Phone: Start: 01-29-2023 End: 01-29-2023 Emergency department patient visit [facility] Work Phone: Start: 01-16-2023 ambulatory Farhat Sears MD Work Phone: Urology Start: 01-16-2023 End: 01-16-2023 Patient encounter procedure Farhat Sears MD Work Phone: Urology Comment on above: Recurrent UTI (Prima ry Dx); Uncontrolled type 2 diabetes mellitus with hyperglycemia (HCC); Neurogenic bladder; Suprapubic catheter (HCC); Morbid obesity with BMI of 40.0-44.9, adult (HCC) Start: 01-04-2023 End: 01-04-2023 ambulatory [facility] Work Phone: Start: 01-04-2023 End: 01-04-2023 Patient encounter procedure [facility] Work Phone: Start: 12-28-2022 End: 12-28-[address] Will Brannon Work Phone: [facility] Work Phone: Start: 12-28-2022 End: 12-28-[address] Will Brannon Work Phone: [facility] Work Phone: Start: 12-18-2022 Evaluation and manag ement of inpatient ANDREW JOHANSEN Facility:[id number] Start: 12-18-2022 End: 12-18-2022 Emergency department patient visit ELIZABETH DO [facility] Start: 12-14-2022 Chart abstracting Will ca MD Work Phone: [facility] Comment on above: outside imaging; ER report Start: 12-12-2022 End: 12-12-2022 Emergency department patient visit Dr. Will Brannon Work Phone: [facility] Work Phone: Start: 12-10-2022 End: 12-10-2022 Emergency department patient visit CAS PAYNE DO [facility] Start: 12-02-2022 End: 12-02-2022 Patient encounter procedure Cory Box PA-C Work Phone: Urology Comment on above: Neurogenic bladder ( Primary Dx) Start: 11-21-2022 End: 11-22-2022 Emergency department patient visit BRADY DOMINGUEZ MD [facility] Start: 11-18-2022 End: 11-18-2022 Nursing evaluation of patient and report [facility] Work Phone: Colorectal Surgery Comment on above: Attention to colosto my (HCC) (Primary Dx) Start: 11-18-2022 End: 11-18-2022 Patient encounter procedure Araseli Renae APRN.BURIAL AGENT Work Phone: Colorectal Surgery Comment on above: Attention to colosto my (HCC) (Primary Dx) Start: 11-15-2022 Telephone encounter Sandra carlos DO Work Phone: Colorectal Surgery Comment on above: Analytical Research Program Manager - O ther Start: 11-14-2022 ambulatory Sandra López DO Work Phone: Colorectal Surgery Comment on above: Having an issue Start: 11-01-2022 End: 11-01-2022 Nursing evaluation of patient and report Nurse Urol [facility] Work Phone: Urology Comment on above: Neurogenic bladder ( Primary Dx) Start: 11-01-2022 Telephone encounter Cory choi PA-C Work Phone: Urology Comment on above: Orders Start: 10-15-2022 End: 10-15-2022 Emergency department patient visit Dr. [facility] Start: 10-07-2022 Chart abstracting Will ca MD Work Phone: [facility] [place] Comment on above: ER Discharge Summary (US, X-ray) Start: 10-06-2022 End: 10-06-2022 Emergency department patient visit Dr. Will Br[facility] Start: 10-04-2022 End: 10-04-2022 Nursing evaluation of patient and report Nurse Urol [facility] Work Phone: Urology Comment on above: Neurogenic bladder ( Primary Dx); Suprapubic catheter (HCC); Diabetes mellitus type 2 with ketoacidosis, uncontrolled (HCC) Start: 09-06-2022 End: 09-06-2022 Nursing evaluation of patient and report Nurse Urol [facility] Work Phone: Urology Comment on above: Neurogenic bladder ( Primary Dx) Start: 09-02-2022 Chart abstracting Will ca MD Work Phone: [facility] Start: 09-01-2022 End: 09-01-[address] Will Brannon Work Phone: [facility] Start: 08-30-2022 Telephone encounter Will Brannon MD Work Phone: [facility] [place] Comment on above: Results Start: 08-25-2022 Telephone encounter eDnae Monk MA [facility] [place] Comment on above: Appointment Start: 08-24-2022 Patient encounter procedure Will Brannon MD Work Phone: [facility] Work Phone: Start: 08-17-2022 Chart abstracting Will ca MD Work Phone: [facility] Comment on above: ER F/U ([facility] ER ) Start: 08-16-2022 End: 08-16-2022 Emergency department patient visit Dr. Will Brannon Work Phone: [facility] Start: 08-02-2022 End: 08-02-2022 Nursing evaluation of patient and report Nurse Urol [facility] Work Phone: Urology Comment on above: Neurogenic bladder ( Primary Dx) Start: 07-20-2022 ambulatory Farhat Sears MD Work Phone: Urology Start: 07-20-2022 End: 07-20-2022 Patient encounter procedure Farhat Sears MD Work Phone: Urology Comment on above: Suprapubic catheter (HCC) (Primary Dx); Bladder stone Start: 07-20-2022 End: 07-20-2022 Patient encounter procedure Farhat Sears MD Work Phone: Urology Comment on above: Neurogenic bladder ( Primary Dx); Suprapubic catheter (HCC) Start: 07-18-2022 Chart abstracting Will ca MD Work Phone: [facility] Comment on above: XRay Report Start: 07-18-2022 Non-patient / Non-visit Dr. Puma Brannon Work Phone: [facility] Start: 07-17-2022 Non-patient / Non-visit Dr. Puma Brannon Work Phone: [facility] Start: 07-16-2022 Non-patient / Non-visit Dr. Puma Brannon Work Phone: [facility] Start: 07-15-2022 Non-patient / Non-visit Dr. Puma Brannon Work Phone: [facility] Start: 07-15-2022 End: 07-15-2022 Non-patient / Non-visit Dr. Will Brannon Work Phone: [facility] Start: 07-14-2022 Non-patient / Non-visit Dr. Puma Brannon Work Phone: [facility] Start: 07-13-2022 Non-patient / Non-visit Dr. Puma Brannon Work Phone: [facility] Start: 07-13-2022 End: 07-18-2022 Evaluation and management of inpatient [facility] 3 Start: 07-05-2022 End: 07-05-2022 Nursing evaluation of patient and report Nurse Urol [facility] Work Phone: Urology Comment on above: Neurogenic bladder ( Primary Dx) Start: 07-03-2022 End: 07-04-2022 Emergency department patient visit DAMIR BLUNT DO [facility] Start: 06-13-2022 ambulatory Kimberley SAWANT Work Phone: Urology Start: 06-07-2022 End: 06-07-2022 Nursing evaluation of patient and report Nurse Urol [facility] Work Phone: Urology Comment on above: Neurogenic bladder ( Primary Dx) Start: 06-04-2022 End: 06-05-2022 Observation NADER CARDOZO APPLICATION SUPPORT DEVELOPER-BURIAL AGENT [facility] Start: 05-15-2022 End: 05-16-2022 Emergency department patient visit [facility] Start: 05-10-2022 End: 05-10-2022 Nursing evaluation of patient and report Nurse Urol [facility] Work Phone: Urology Comment on above: Neurogenic bladder ( Primary Dx) Start: 04-23-2022 End: 04-27-2022 Observation JERAD GONZALEZ APPLICATION SUPPORT DEVELOPER-BURIAL AGENT [facility] Start: 04-10-2022 End: 04-11-2022 Emergency department patient visit [facility] Start: 03-22-2022 End: 03-22-2022 Emergency department patient visit DR ELIZABETH PERALTA MD [facility] Start: 03-22-2022 End: 03-22-2022 Emergency department patient visit [facility] Start: 03-15-2022 End: 03-15-2022 Nursing evaluation of patient and report Nurse Urol [facility] Work Phone: Urology Comment on above: Neurogenic dysfuncti on of the urinary bladder (Primary Dx) Start: 02-28-2022 End: 02-28-2022 Patient encounter procedure Tulio Pompa MD Work Phone: [facility] Comment on above: Gastroenteritis (Martah penelope Dx) Start: 02-22-2022 End: 02-22-2022 Patient encounter procedure Xavier Josue MD Work Phone: General Surgery Comment on above: Thyroid nodule (Prim venu Dx); Pharyngeal dysphagia; Globus sensation; Tenderness of neck Start: 02-16-2022 End: 02-16-2022 Patient encounter procedure Fawn Herrera MD Work Phone: General Surgery Comment on above: Globus sensation (Pr imary Dx); Thyroid nodule; Pharyngeal dysphagia Start: 02-15-2022 End: 02-15-2022 Emergency department patient visit CAS PAYNE DO [facility] Start: 02-15-2022 Telephone encounter Netta lopez PA-C Work Phone: Family Medicine [place] Comment on above: Results Start: 02-14-2022 End: 02-14-2022 Subsequent hospital visit by physician 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); Essential hypertension; Mixed hyperlipidemia; Thyroid cyst; Dysthymic disorder; Anxiety and depression; Morbid obesity with BMI of 40.0-44.9, adult (HCC); Paroxysmal SVT (supraventricular tachycardia) (HCC); Spina bifida, unspecified hydrocephalus presence, unspecified spinal region (HCC); Neuropathy Start: 02-08-2022 End: 02-08-2022 Nursing evaluation of patient and report Nurse Urol [facility] Work Phone: Urology Comment on above: Neurogenic dysfuncti on of the urinary bladder (Primary Dx) Start: 01-12-2022 End: 01-12-2022 Subsequent hospital visit by physician Screen Mammo [facility] Comment on above: Encounter for screen ing mammogram for breast cancer [Z12.31] Start: 01-12-2022 Documentation procedure [facility] Start: 01-12-2022 Letter encounter Mammography Coordinator [facility] Department Start: 12-31-2021 End: 12-31-2021 Nursing evaluation of patient and report Nurse Urol [facility] Work Phone: Urology Comment on above: Neurogenic dysfuncti on of the urinary bladder (Primary Dx) Start: 12-15-2021 ambulatory Will morales MD Work Phone: Internal Medicine [facility] [place] Start: 12-09-2021 End: 12-09-2021 Patient encounter procedure Too Parker MD Work Phone: Allergy Comment on above: Adverse effect of ce phalosporins and other beta-lactam antibiotics, initial encounter (Primary Dx); Anaphylaxis, initial encounter Start: 12-03-2021 End: 12-03-2021 Patient encounter procedure Cory Box PA-C Work Phone: Urology Comment on above: Suprapubic catheter (HCC) (Primary Dx) Start: 11-26-2021 Telephone encounter Sandra carlos DO Work Phone: Colorectal Surgery Comment on above: Analytical Research Program Manager - O ther Start: 11-26-2021 End: 11-26-2021 Emergency department patient [facility]. [facility] Start: 11-22-2021 Chart abstracting Will ca MD Work Phone: [facility] Comment on above: D/C Summary Events Start: 11-22-2021 Non-patient / Non-visit Dr. Puma Brannon Work Phone: [facility] Start: 11-21-2021 Non-patient / Non-visit Dr. Puma Brannon Work Phone: [facility] Start: 11-21-2021 End: 11-22-2021 Evaluation and management of inpatient Dr. Will Br[facility] Start: 11-14-2021 End: 11-15-2021 [facility] Start: 11-08-2021 Telephone encounter Cory choi PA-C Work Phone: Urology Comment on above: Appointment Start: 11-04-2021 End: 11-05-2021 [facility] Start: 10-27-2021 End: 10-27-2021 Patient encounter procedure Sandra López DO Work Phone: Colorectal Surgery Comment on above: Anaphylaxis, initial encounter (Primary Dx) Start: 10-27-2021 End: 10-27-2021 Nursing evaluation of patient and report Stoma Therapy Work Phone: Colorectal Surgery Comment on above: Attention to colosto my (HCC) (Primary Dx) Start: 10-26-2021 End: 10-26-2021 Departed Referred [facility] 100/200 Start: 10-26-2021 Registered Referred [facility] 100/200 Start: 10-18-2021 End: 10-18-2021 Departed Referred [facility] 100/200 Start: 10-11-2021 End: 10-11-2021 Departed Referred [facility] 100/200 Start: 09-22-2021 End: 09-22-2021 ambulatory Pacc Main 2 Work Phone: Pre Anesthesia Comment on above: Preoperative examina tion (Primary Dx); Colonic dysmotility; Constipation due to outlet dysfunction; Morbid obesity with BMI of 40.0-44.9, adult ([facility]); Migraine without aura and without status migrainosus, not intractable; History of Manley's palsy; Spina bifida, unspecified hydrocephalus presence, unspecified spinal region ([facility]); Essential hypertension; Mixed hyperlipidemia; Paroxysmal SVT (supraventricular tachycardia) ([facility]); Neurogenic bladder; Type 2 diabetes mellitus with hyperglycemia, with long-term current use of insulin ([facility]) Start: 09-22-2021 Telephone encounter Cinthia smith PA-C Work Phone: Pre Anesthesia Comment on above: PreOp Call (A1C) Patient Request Start: 09-22-2021 End: 09-22-2021 Nursing evaluation of patient and report Stoma Therapy Work Phone: Colorectal Surgery Comment on above: Attention to artific ial opening of urinary tract (HCC) (Primary Dx) Start: 09-22-2021 End: 09-22-2021 Admission to establishment [facility]acc Main 2 Work Phone: [facility] Start: 09-22-2021 End: 09-22-2021 Preprocedural examination done Pacc Main 2 Work Phone: Pre Anesthesia Start: 09-17-2021 End: 09-17-2021 Emergency department patient visit [facility] Start: 09-17-2021 End: 09-17-2021 Patient encounter procedure [facility]Neurology Start: 09-09-2021 End: 09-09-2021 Subsequent hospital visit by physician Mri Radio [facility] (I-Stat/1.5t) Work Phone: Radiology Comment on above: 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 Work Phone: Urology Comment on above: Neurogenic dysfuncti on of the urinary bladder (Primary Dx) Start: 08-27-2021 Telephone encounter Jaimee Manning APRN.BURIAL AGENT Work Phone: Neurology Comment on above: EM[facility] order to [facility] Start: 08-26-2021 End: 08-26-2021 Patient encounter procedure Jaimee Carbajal APRN.BURIAL AGENT Work Phone: Neurology Comment on above: Neuropathy (Primary Dx); Spina bifida, unspecified hydrocephalus presence, unspecified spinal region (HCC); Spinal stenosis of lumbar region without neurogenic claudication; Thyroid cyst; Manley's palsy; Facial weakness Start: 08-25-2021 Telephone encounter Angeline Gilmoree R N Colorectal Surgery Comment on above: Analytical Research Program Manager - O ther; Orders; Patient Question; Appointment; Returning Patient's Call Start: 08-24-2021 Telephone encounter Angeline Roberts R Sami Colorectal Surgery Comment on above: Analytical Research Program Manager - O ther; Orders; Patient Question Start: 08-20-2021 End: 08-20-2021 Subsequent hospital visit by physician Xr [facility] Mob Work Phone: Radiology Comment on above: Neurogenic bowel [K5 9.2] Start: 08-20-2021 End: 08-20-2021 Emergency department patient visit [facility] Start: 07-28-2021 Ophthalmic examinati on and evaluation Xr Mob Work Phone: [facility] Work Phone: Start: 07-28-2021 Patient encounter procedure Xr Mob Work Phone: [facility] Work Phone: Start: 07-07-2021 End: 07-07-2021 [facility] Start: 06-30-2021 End: 06-30-2021 [facility] Start: 06-28-2021 End: 06-28-2021 Emergency department patient visit [facility] Start: 06-27-2021 End: 06-28-2021 Emergency department patient visit [facility] Start: 06-03-2021 End: 06-04-2021 Emergency department patient visit [facility] Start: 04-28-2021 End: 04-28-2021 Emergency department patient visit DR DANIELA VARGAS MD [facility] Start: 01-02-2018 End: 01-02-2018 Patient encounter NOAMAN S ALI Facility:[facility] Start: 12-26-2017 End: 12-26-2017 Emergency department patient visit Will Brannon Facility:[facility] Start: 12-11-2017 End: 12-12-2017 Evaluation and management of inpatient NOAMAN S ALI Facility:[facility] Start: 12-11-2017 End: 12-12-2017 Patient encounter NOHUMA ALI [facility] Start: 12-01-2017 End: 12-01-2017 Patient encounter NOAMAN S ALI Facility:[facility] Start: 11-07-2017 End: 11-07-2017 [facility] Start: 10-17-2017 End: 10-17-2017 Patient encounter NOAMAN S ALI Facility:[facility] Start: 11-27-2016 End: 11-27-2016 Emergency department patient visit REID DAI Facility:[facility] Procedures Date Procedure Procedure Detail Performing Clinician Start: 09-09-2024 Urine microscopy: red cells Dr. Will Brannon MD Work Phone: Start: 09-09-2024 Urnls dip stick/tablet reagent auto microscopy Dr. Will Brannon MD Work Phone: Start: 09-09-[address] Will Brannon MD Work Phone: Start: 09-02-2024 Blood count smear mcrscp w/mnl difrntl wbc count Dr. Will Brannon MD Work Phone: Start: 09-02-2024 Mean corpuscular hemoglobin concentration determination Dr. Will Brannon MD Work Phone: Start: 09-02-2024 Nucleated red blood cell count procedure Dr. Will Brannon MD Work Phone: Start: 09-02-2024 Platelet mean volume determination Dr. Florencia Brannon MD Work Phone: Start: 08-26-2024 Blood count smear mcrscp w/mnl difrntl wbc count Dr. Will Brannon MD Work Phone: Start: 08-26-2024 Mean corpuscular hemoglobin concentration determination Dr. Will Brannon MD Work Phone: Start: 08-26-2024 Nucleated red blood cell count procedure Dr. Will Brannon MD Work Phone: Start: 08-26-2024 Platelet mean volume determination Dr. Florencia Brannon MD Work Phone: Start: 08-19-2024 Blood count smear mcrscp w/mnl difrntl wbc count Dr. Will Brannon MD Work Phone: Start: 08-19-2024 Flow cytometry cell surf marker techl only 1st Dr. Will Brannon MD Work Phone: Start: 08-19-2024 Mean corpuscular hemoglobin concentration determination Dr. Will Brannon MD Work Phone: Start: 08-19-2024 Platelet mean volume determination Dr. Florencia Brannon MD Work Phone: Start: 08-19-2024 Vitamin D, 25-hydroxy measurement Dr. Puma Brannon MD Work Phone: Start: 08-16-2024 Incision and drainage of abscess Dr. Nigel Brannon MD Work Phone: Start: 08-15-2024 Blood count smear mcrscp w/mnl difrntl wbc count Dr. Will Brannon MD Work Phone: Start: 08-15-[address] Gogo Brannon MD Work Phone: Start: 08-15-2024 Flow cytometry cell surf marker techl only 1st Dr. Will Brannon MD Work Phone: Start: 08-15-2024 Lymphocyte percent differential count Dr. Will Brannon MD Work Phone: Start: 08-15-2024 Mean corpuscular hemoglobin concentration determination Dr. Will Brannon MD Work Phone: Start: 08-15-2024 Myelocyte percent differential count Dr. Will Brannon MD Work Phone: Start: 08-15-2024 Platelet mean volume determination Dr. Florencia Brannon MD Work Phone: Start: 08-13-2024 Serum inorganic phosphate measurement Dr. Will Brannon MD Work Phone: Start: 08-12-[address] Will Brannon MD Work Phone: Start: 08-12-2024 End: 08-12-[address] Will Brannon MD Work Phone: Start: 08-12-[address] Will Brannon MD Work Phone: Start: 08-12-2024 End: 08-12-2024 Microbial culture, routine Dr. Will espino MD Work Phone: Start: 08-12-2024 Incision and drainage of abscess Dr. Nigel Brannon MD Work Phone: Start: 08-12-[address] Will dunham MD Work Phone: Start: 08-12-2024 Nucleated red blood cell count procedure Dr. Will Brannon MD Work Phone: Start: 08-12-2024 Total cholesterol:HDL ratio measurement Dr. Will Brannon MD Work Phone: Start: 08-12-2024 Urine microscopy: red cells Dr. Will Brannon MD Work Phone: Start: 08-12-2024 Urnls dip stick/tablet reagent auto microscopy Dr. Will Brannon MD Work Phone: Start: 08-12-2024 MRI of lower limb with contrast Dr. Kevin Brannon MD Work Phone: Start: 08-12-2024 CT of lower limb with contrast Dr. Gogo Brannon MD Work Phone: Start: 08-11-[address] Will Brannon MD Work Phone: Start: 08-11-[address] Will Brannon MD Work Phone: Start: 07-31-2024 X-ray of foot, three or more views Dr. Florencia Brannon MD Work Phone: Start: 07-31-2024 End: 07-31-[address] Will Brannon MD Work Phone: Start: 07-31-2024 Mean corpuscular hemoglobin concentration determination Dr. Will Brannon MD Work Phone: Start: 07-31-2024 Nucleated red blood cell count procedure Dr. Will Brannon MD Work Phone: Start: 07-31-2024 Platelet mean volume determination Dr. Florencia Brannon MD Work Phone: Start: 07-11-2024 CT of head without contrast Dr. Will Brannon MD Work Phone: Start: 07-11-2024 Plain chest X-ray Dr. Will Brannon MD Work Phone: Start: 07-11-[address] Will Brannon MD Work Phone: Start: 07-11-2024 Blood count smear mcrscp w/mnl difrntl wbc count Dr. Will Brannon MD Work Phone: Start: 07-11-2024 BUN/Creatinine ratio Dr. Will Brannon MD Work Phone: Start: 07-11-2024 Calculation of international normalized ratio Dr. Will Brannon MD Work Phone: Start: 07-11-[address] Gogo Brannon MD Work Phone: Start: 07-11-2024 Mean corpuscular hemoglobin concentration determination Dr. Will Brannon MD Work Phone: Start: 07-11-2024 Measurement of renal function Dr. Viktoriya Brannon MD Work Phone: Start: 07-11-2024 Nucleated red blood cell count procedure Dr. Will Brannon MD Work Phone: Start: 07-11-2024 Platelet mean volume determination Dr. Florencia Brannon MD Work Phone: Start: 06-12-2024 End: 06-12-[address] Will Brannon MD Work Phone: Start: 06-12-2024 CT of abdomen and pelvis without contrast Dr. Will Brannon MD Work Phone: Start: 06-12-2024 Albumin/Globulin ratio Dr. Will dunham MD Work Phone: Start: 06-12-[address] Will Brannon MD Work Phone: Start: 06-12-2024 BUN/Creatinine ratio Dr. Will Brannon MD Work Phone: Start: 06-12-[address] Gogo Brannon MD Work Phone: Start: 06-12-2024 Mean corpuscular hemoglobin concentration determination Dr. Will Brannon MD Work Phone: Start: 06-12-2024 Measurement of renal function Dr. Viktoriya Brannon MD Work Phone: Start: 06-12-2024 Nucleated red blood cell count procedure Dr. Will Brannon MD Work Phone: Start: 06-12-2024 Platelet mean volume determination Dr. Florencia Brannon MD Work Phone: Start: 06-12-[address] Florencia Brannon MD Work Phone: Start: 06-12-2024 Urine microscopy: red cells Dr. Will Brannon MD Work Phone: Start: 06-12-2024 Urnls dip stick/tablet reagent auto microscopy Dr. Will Brannon MD Work Phone: Start: 06-09-[address] Will Brannon MD Work Phone: Start: 06-09-2024 Computed tomography of abdomen and pelvis with intravenous contrast Dr. Will Brannon MD Work Phone: Start: 05-21-2024 Radionuclide gastric emptying study Dr. Will Brannon MD Work Phone: Start: 03-25-2024 Esophagogastroduodenoscopy transoral diagnostic Xavier Josue MD Work Phone: Start: 10-07-2023 CT of abdomen and pelvis without contrast Start: 08-18-2023 Mri spinal canal cervical w/o contrast matrl Stephan Nicholson MD Work Phone: Start: 08-13-2023 Urine culture Start: 07-25-2023 X-ray of lumbosacral spine Start: 04-20-2023 Urine culture Start: 04-13-2023 US THYROID BIOPSY RIGHT (POC) SURG USE ONLY Xavier Josue MD Work Phone: Start: 02-02-2023 Urine culture Start: 01-29-2023 X-ray of both feet Start: 01-29-2023 Radiography of ankle Start: 01-29-2023 Radiologic examination of knee Start: 12-18-2022 Urinalysis ELIZABETH PEDROZA Comment on above: Result Comment: URINALYSIS Performed By: #### 2 [id number] #### Ruben [facility],[address] [id number] Start: 12-12-2022 CT of abdomen and pelvis without contrast Dr. Will Brannon Work Phone: Start: 12-12-[address] Will Brannon Work Phone: Start: 10-15-2022 End: 10-15-2022 Plain x-ray of elbow Dr. Will Brannon Work Phone: Start: 10-15-2022 Plain X-ray of shoulder Dr. Will morales Work Phone: Start: 10-15-2022 CT cervical spine without contrast Dr. Florencia Brannon Work Phone: Start: 10-15-2022 CT of chest and abdomen Dr. Will morales Work Phone: Start: 10-15-2022 CT of head without contrast Dr. Will Brannon Work Phone: Start: 10-06-2022 Plain X-ray of tibia and fibula Dr. Kevin Brannon Work Phone: Start: 10-06-2022 X-ray of both feet Dr. Will Brannon Work Phone: Start: 08-16-[address] Will Brannon Work Phone: Start: 08-16-2022 Bacteria identified in Blood by Culture Dr. Will Brannon Work Phone: Start: 08-16-2022 Investigation of transfusion reaction Dr. Will Brannon Work Phone: Start: 08-16-2022 Microbial culture, routine Dr. Will espino Work Phone: Start: 08-16-[address] Will Brannon Work Phone: Start: 08-16-2022 X-ray of both feet Dr. Will Brannon Work Phone: Start: 07-15-[address] Will Brannon Work Phone: Start: 07-15-[address] Will Brannon Work Phone: Start: 07-15-[address] Will Brannon Work Phone: Start: 07-13-2022 MRI of lower limb with contrast Dr. Kevin Brannon Work Phone: Start: 07-13-2022 X-ray of both feet Start: 05-15-2022 Plain chest X-ray Start: 04-11-2022 X-ray of both feet Start: 02-14-2022 soft tissue head & neck real time imge docbayron Higgins PA-C Work Phone: Start: 01-13-2022 Hemoglobin A1c/Hemoglobin.total in Blood [facility] Provider Start: 01-12-2022 End: 01-12-2022 Screening mammography bi 2-view breast inc cad Bulk Order Provider Start: 11-26-2021 Computed tomography of abdomen and pelvis with intravenous contrast Dr. Will Brannon Work Phone: Start: 11-21-2021 MRI of lower extremity Dr. Will dunham Work Phone: Start: 11-20-2021 Plain chest X-ray Dr. Will Brannon Work Phone: Start: 11-20-2021 X-ray of both feet Dr. Will Brannon Work Phone: Start: 11-15-2021 X-ray of both feet Start: 11-05-2021 CT of abdomen and pelvis without contrast Start: 09-30-2021 H/O: colostomy S/P colostomy Jaimee Carbajal APRN.BURIAL AGENT Work Phone: Start: 09-17-2021 Urine culture Start: 09-09-2021 End: 09-09-2021 Mri brain brain stem w/o w/contrast material Jaimee Carbajal APRN.BURIAL AGENT Work Phone: Start: 08-20-2021 X-ray exam of abdomen Sandra López DO Work Phone: Start: 08-20-2021 Urine culture Start: 08-20-2021 CT of abdomen and pelvis without contrast Start: 06-30-2021 Plain X-ray of tibia and fibula Start: 06-28-2021 Bacteria identified in Blood by Culture Start: 06-28-2021 Urine culture Start: 10-28-2019 H/O: surgery S/P thyroid biopsy Acid fast bacilli culture Dr Shiva Brannon Work Phone: Acid fast bacilli culture Dr Shiva Brannon Work Phone: Anaerobic microbial culture Dr. Will Brannon Work Phone: Anaerobic microbial culture Dr. Will Brannon Work Phone: Anaerobic microbial culture Dr. Will Brannon Work Phone: Back structure, excl uding neck (body structure) DR DANIELA VARGAS MD Bacteria identified in Blood by Culture Dr. Will Brannon Work Phone: Bacteria identified in Blood by Culture Bacteria identified in Blood by Culture Bacteria identified in Blood by Culture Dr. Will Brannon Work Phone: Bacteria identified in Blood by Culture Dr. Will Brannon Work Phone: Cholecystectomy NADER CARDOZO APPLICATION SUPPORT DEVELOPER-BURIAL AGENT Colostomy JERAD GONZALEZ APPLICATION SUPPORT DEVELOPER-BURIAL AGENT Cytopathology proced ure, preparation of smear, genital source Dr. Will Brannon Work Phone: Cytopathology proced ure, preparation of smear, genital source Dr. Will Brannon Work Phone: Fungus stain method Dr. Kevin Brannon Work Phone: Investigation of tra nsfusion reaction Dr. Will Brannon Work Phone: Investigation of tra nsfusion reaction Investigation of tra nsfusion reaction Dr. Will Brannon Work Phone: Investigation of tra nsfusion reaction Dr. Will Brannon Work Phone: Microbial culture, routine D bhavesh Brannon Work Phone: Microbial culture, routine Microbial culture, routine D bhavesh Brannon Work Phone: Microbial culture, routine D bhavesh Brannon Work Phone: Microbial culture, routine D bhavesh Brannon Work Phone: Mycology culture Dr. 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 Will ca Work Phone: Viral antigen assay Dr. Kevin Brannon Work Phone: Plan of Treatment Date Care Activity Detail Author Start: 2046 PNEUMOCOCCAL (3 - PPSV23 if available, else PCV20) PNEUMOCOCCAL (3 - PPSV23 if available, else PCV20) [facility] Start: 2046 PNEUMOCOCCAL (3 - PPSV23 or PCV20) PNEUMOCOCCAL (3 - PPSV23 or PCV20) [facility] Start: 2046 [facility]neum[facility] Start: 11-13-2031 Pneumococcal vaccination Pneumococcal Vaccine (3 of 3 - PCV20 or PCV21) [facility] Start: 03-23-2031 Urine microalbumin profile [facility] Start: 05-02-2028 Screening for malignant neoplasm of cervix [facility] Start: 08-29-2025 Hepatitis B surface antibody level LDL Cholesterol [facility] Start: 07-11-2025 Annual PCP Team Chronic Disease Visit Annual PCP Team Chronic Disease Visit [facility] Start: 05-16-2025 End: 05-16-2025 Patient encounter procedure 05/16/2025 2:30 PM EST Office Visit [facility] Ophthalmology [address] [place] [address] Sabra Nevarez, OD [address] [place] [address] 1 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 eye Ophthalmology Comment on above: 1 yr Diabetic eye Start: 05-03-2025 Glaucoma screening Dilated Retinal Exam [facility] Start: 04-29-2025 Hepatitis B surface antibody level LDL Cholesterol [facility] Start: 04-24-2025 Screening for malignant neoplasm of breast Mammogram Screening [facility] Start: 04-10-2025 Annual PCP Team Chronic Disease Visit Annual PCP Team Chronic Disease Visit [facility] Start: 04-10-2025 BP Controlled (<130/80) BP Controlled (<130/80) [facility] Start: 02-04-2025 End: 02-04-2025 Patient encounter procedure 02/04/2025 4:00 PM EDT Office Visit OB/Gynecology [address] [place] [address] Joni Monk MD [address] [place] [address] Annual check up OB/Gynecology Comment on above: Annual check up Start: 01-27-2025 Influenza vaccination Influenza Vaccine (Season Ended) [facility] Start: 01-08-2025 End: 01-08-2025 Patient encounter procedure 01/08/2025 4:30 PM EDT Office Visit Neurology [address] [place], [place] [id number] Araceli Torres PA-C [address] [place] [address] 6 month follow up Neurology Comment on above: 6 month follow up Start: 01-02-2025 BP Controlled (<130/80) BP Controlled (<130/80) [facility] Start: 12-05-2024 BP Controlled (<130/80) BP Controlled (<130/80) [facility] Start: 12-03-2024 End: 12-03-2024 Patient encounter procedure 12/03/2024 3:30 PM EDT Office Visit Urology [address] [place] [address] Cory Box PA-C [address] [place] [address] Yearly: Neurogenic Bladder with SPT Urology Comment on above: Yearly: Neurogenic Bladder with SPT Start: 12-03-2024 Annual PCP Team Chronic Disease Visit Annual PCP Team Chronic Disease Visit [facility] Start: 12-03-2024 BP Controlled (<130/80) BP Controlled (<130/80) [facility] in Start: 11-28-2024 Hemoglobin A1c measurement HbA1C [facility] Start: 11-19-2024 End: 11-19-2024 Nursing evaluation of patient and report 11/19/2024 3:40 PM EDT Nurse Visit Urology [address] [place] [address] Wstr, Nurse Urol [facility]ly [facility] [address] [place] [address] ATTEMPT/ SPT tube change. Order PENDED. [facility] Urology Comment on above: 1 ST ATTEMPT/ SPT tube change. Order PEN DED. [facility] Start: 11-05-2024 End: 11-05-2024 Nursing evaluation of patient and report 11/05/2024 3:40 PM EDT Nurse Visit Urology [address] [place] [address] Wstr, Nurse Urol Formerly [facility] [address] [place] [address] SPT tube change. Order PENDED. [facility] Urology Comment on above: SPT tube change. Order PENDED. [facility] Start: 10-16-2024 End: 10-16-2024 Patient encounter procedure Family Medicine Norma Comment on above: Medicare wellness Start: 10-08-2024 End: 10-08-2024 Nursing evaluation of patient and report 10/08/2024 3:40 PM EDT Nurse Visit Urology [address] [place] [address] Wstr, Nurse Urol [facility] [address] [place] [address] SPT tube change. Order PENDED. [facility] Urology Comment on above: SPT tube change. Order PENDED. [facility] Start: 10-08-2024 Annual PCP Team Chronic Disease Visit Annual PCP Team Chronic Disease Visit [facility] Start: 10-08-2024 BP Controlled (<130/80) BP Controlled (<130/80) [facility] in Start: 10-01-2024 Hepatitis B surface antibody level LDL Cholesterol [facility] Start: 09-27-2024 Annual PCP Team Chronic Disease Visit Annual PCP Team Chronic Disease Visit [facility] Start: 09-27-2024 BP Controlled (<130/80) BP Controlled (<130/80) [facility] Start: 09-27-2024 Medicare Annual Wellness Visit Medicare Annual Wellness Visit [facility] Start: 08-28-2024 End: 08-28-2024 ambulatory 08/28/2024 4:15 PM EDT Results Only [facility] [address] [place] [address] [facility] Start: 08-16-2024 Patient discharge [facility] Start: 08-15-2024 BP Controlled (<130/80) BP Controlled (<130/80) [facility] Start: 08-13-2024 End: 08-13-2024 Nursing evaluation of patient and report 08/13/2024 3:40 PM EDT Nurse Visit Urology [address] [place] [address] Wstr, Nurse Urol [facility] [address] [place] [address] SPT tube change Urology Comment on above: SPT tube change Start: 08-13-2024 Consultation for treatment [facility] Start: 08-13-2024 Wound care [facility] Start: 08-13-2024 [facility] Start: 08-12-2024 [facility] Start: 08-12-2024 Microbial culture, routine [facility] Start: 08-12-2024 Consultation [facility] Start: 08-12-2024 Patient education [facility] Start: 08-12-2024 Referral to can tester [facility] Start: 08-12-2024 Following clinical pathway protocol [facility] Start: 08-12-2024 Assessment of risk of venous thromboembolism [facility] Start: 08-12-2024 Care regimes management [facility] Start: 08-12-2024 Catheterization of vein [facility] Start: 08-12-2024 Inhalation therapy procedure [facility] Start: 08-12-2024 Insertion of catheter into peripheral vein [facility] Start: 08-12-2024 Measuring intake and output [facility] Start: 08-12-2024 End: 08-12-2024 Notification of physician [facility] Start: 08-12-2024 End: 08-12-2024 Patient referral to dietitian [facility] Start: 08-12-2024 Providing care according to standard [facility] Start: 08-12-2024 Provision of activity privileges [facility] Start: 08-12-2024 Referral to service [facility] Start: 08-12-2024 Vital signs measurements [facility] Start: 08-12-2024 End: 08-12-2024 [facility] Start: 08-12-2024 Source specific culture [facility] Start: 08-11-2024 CT of lower limb with contrast [facility] Start: 08-11-2024 Urinalysis complete panel - Urine [facility] Start: 08-11-2024 Verification routine [facility] Start: 08-11-2024 Admission procedure [facility] Start: 08-11-2024 Hospital admission, emergency, from emergency room, medical nature [facility] Start: 08-11-2024 End: 08-11-2024 [facility] Start: 08-11-2024 Blood culture [facility] Start: 07-31-2024 [facility] Start: 07-28-2024 Hemoglobin A1c measurement HbA1C [facility] Start: 07-18-2024 BP Controlled (<130/80) BP Controlled (<130/80) [facility] Start: 07-16-2024 End: 07-16-2024 Nursing evaluation of patient and report 07/16/2024 3:40 PM EST Nurse Visit Urology [address] [place] [address] Wstr, Nurse Urol [facility] [address] [place] [address] SPT tube change Urology Comment on above: SPT tube change Start: 07-11-2024 [facility] Start: 07-11-2024 [facility] Start: 07-11-2024 End: 07-11-2024 Patient encounter procedure 07/11/2024 4:20 PM EST Office Visit Family Medicine [facility] [address] [facility] [place] [address] Devin George APRN.[facility] [address] [place], [place] [id number] Nosebleed on left side the last week very worried Family [facility] Comment on above: Nosebleed on left side the last week kamla y worried Start: 07-09-2024 End: 07-09-2024 Patient encounter procedure Neurology Comment on above: follow up Migraines, follow up Start: 06-21-2024 BP Controlled (<130/80) BP Controlled (<130/80) [facility] Start: 06-13-2024 [facility] Start: 06-11-2024 End: 06-11-2024 Nursing evaluation of patient and report 06/11/2024 3:40 PM EST Nurse Visit Urology [address] [place] [address] Wstr, Nurse Urol [facility] [address] [place] [address] SPT tube change Urology Comment on above: SPT tube change Start: 06-09-2024 [facility] Start: 05-28-2024 Glaucoma screening Dilated Retinal Exam [facility] Comment on above: Postponed from 10/26/2023 (Currently Mireya eduled) Start: 05-07-2024 End: 05-07-2024 Nursing evaluation of patient and report 05/07/2024 3:40 PM EST Nurse Visit Urology [address] [place] [address] Wstr, Nurse Urol [facility] [address] [place] [address] SPT tube change Urology Comment on above: SPT tube change Start: 05-03-2024 End: 05-03-2024 Patient encounter procedure 05/03/2024 2:30 PM EST Office Visit [facility] Op[facility]mology [address] [place] [address] Sabra Nevarez, OD [address] [place] [address] [address] exam for dr brannon Ophthalmology Comment on above: Diabetic eye exam for dr brannon Start: 05-02-2024 Screening for malignant neoplasm of cervix Cervical Cancer Screening [facility] Start: 04-29-2024 End: 04-29-2024 ambulatory 04/29/2024 4:15 PM EST Results Only [facility] [address] [place] [address] Norma [facility] Start: 04-28-2024 End: 07-28-2024 Comprehensive metabolic 2000 panel - Serum or Plasma COMPREHENSIVE METABOLIC PANEL Lab Routine Diabetes mellitus treated with insulin (HCC) Expected: 04/28/2024, Expires: 07/28/2024 [facility] Work Phone: Comment on above: Expected: 04/28/2024, Expires: Start: 04-28-2024 End: 07-28-2024 Hemoglobin A1c in Blood HEMOGLOBIN A1C Lab Routine Diabetes mellitus treated with insulin (HCC) Expected: 04/28/2024, Expires: 07/28/2024 [facility] Comment on above: Expected: 04/28/2024, Expires: Start: 04-28-2024 End: 07-28-2024 LIPID PANEL, NONFASTING LIPID PANEL, NONFASTING Lab Routine Diabetes mellitus treated with insulin (HCC) Expected: 04/28/2024, Expires: 07/28/2024 [facility] Comment on above: Expected: 04/28/2024, Expires: Start: 04-28-2024 End: 07-28-2024 Microalbumin/Creatinine [Mass Ratio] in Urine ALBUMIN/CREATININE RATIO, URINE Lab Routine Diabetes mellitus treated with insulin (HCC) Expected: 04/28/2024, Expires: 07/28/2024 [facility] Comment on above: Expected: 04/28/2024, Expires: Start: 04-24-2024 End: 04-24-2024 Patient encounter procedure 04/24/2024 3:40 PM EST Appointment Mammogram [address] [place] [address] Encounter for screening mammogram for breast cancer [Z12.31] Mammogram Comment on above: Encounter for screening mammogram for br east cancer [Z12.31] Start: 04-18-2024 End: 04-18-2024 Patient encounter procedure 04/18/2024 4:00 PM EST Appointment Radiology [address] [place] [address] Thyroid cyst [E04.1] Radiology Comment on above: Thyroid cyst [E04.1] Start: 04-15-2024 End: 04-15-2024 Follow-up encounter 04/15/2024 11:50 AM EST [facility] Hematology/Oncology [address] [place] [address] [place] [address] [place] [address] lab follow up Hematology/Oncology Comment on above: lab follow up Start: 04-12-2024 Hepatitis B surface antibody level LDL Cholesterol [facility] Start: 04-10-2024 End: 04-10-2024 Patient encounter procedure 04/10/2024 3:40 PM EST Office Visit Family Medicine Norma [address] [place] [address] Will Brannon MD [address] [place] [address] 6 month follow up Family Medicine Norma Comment on above: 6 month follow up Start: 04-10-2024 End: 07-10-2024 Magnesium [Mass/volume] in Serum or Plasma MAGNESIUM Lab Routine Hypomagnesemia Expected: 04/10/2024, Expires: 07/10/2024 [facility] Comment on above: Expected: 04/10/2024, Expires: Start: 04-10-2024 End: 07-10-2024 Thyrotropin [Units/volume] in Serum or Plasma THYROID STIMULATING HORMONE Lab Routine Thyroid cyst Expected: 04/10/2024, Expires: 07/10/2024 [facility] Comment on above: Expected: 04/10/2024, Expires: Start: 04-05-2024 Mammography Mammogram Screening [facility] Start: 04-05-2024 Screening for malignant neoplasm of breast Mammogram Screening [facility] Start: 04-04-2024 End: 04-04-2024 ambulatory 04/04/2024 10:00 AM EST Results Only [facility] [address] [place] [address] 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] [facility] Comment on above: 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] Start: 04-02-2024 End: 04-02-2024 Nursing evaluation of patient and report 04/02/2024 3:40 PM EST Nurse Visit Urology [address] [place] [address] Wstr, Nurse Urol [facility] [address] [place] [address] SPT tube change Urology Comment on above: SPT tube change Start: 04-01-2024 End: 04-01-2024 Patient encounter procedure 04/01/2024 3:00 PM EST Office Visit General Surgery [address] [place] [address] Mellisa Paul, SUSAN.BURIAL AGENT [address] [place] [id number] 03-25 EGD follow up General Surgery Comment on above: 03-25 EGD follow up Start: 03-29-2024 Annual PCP Team Chronic Disease Visit Annual PCP Team Chronic Disease Visit [facility] Start: 03-25-2024 End: 03-25-2024 Patient encounter procedure 03/25/2024 11:30 AM EDT Appointment Ambulatory Surgery [address] [place], [place] [address] Xavier Josue MD [address] [place] [address] Ambulatory Surgery Start: 03-21-2024 End: 03-21-2024 ambulatory 03/21/2024 2:40 PM EDT Visit (SP) Office Hematology/Oncology [address] [place] [id number] [place] [address] [place] [address] 3 MO OV/US? Hematology/Oncology Comment on above: 3 MO OV/US? 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] Start: 03-06-2024 End: 03-06-2024 Patient encounter procedure 03/06/2024 9:15 AM EDT Office Visit Endocrinology [address] [place] [id number] Nilda Underwood APRN.BURIAL AGENT [address] [place] [address] 3 MTH F/U Endocrinology Comment on above: 3 MTH F/U Start: 03-05-2024 End: 06-04-2024 Bacteria identified in Urine by Culture URINE CULTURE Microbiology Routine Acute cystitis without hematuria Expected: 03/05/2024, Expires: 06/04/2024 [facility] Work Phone: Comment on above: Expected: 03/05/2024, Expires: Start: 03-04-2024 End: 03-04-2024 Patient encounter procedure 03/04/2024 2:45 PM EDT Office Visit General Surgery [address] [place], [place] [id number] Xavier Josue MD [address] [place] [address] Having trouble swallowing food and medicine not sure if my thyroid cyst has grown again mychart request General Surgery Comment on above: Having trouble swallowing food and medic ine not sure if my thyroid cyst has grown again mychart request Start: 02-27-2024 End: 02-27-2024 Nursing evaluation of patient and report 02/27/2024 3:40 PM EDT Nurse Visit Urology [address] [place] [address] Wstr, Nurse Urol [facility] [address] [place] [address] SPT tube change Urology Comment on above: SPT tube change Start: 02-19-2024 End: 02-19-2024 Patient encounter procedure 02/19/2024 2:45 PM EDT Office Visit [facility] Ophthalmology [address] [place], [place] [id number] Sabra Nevarez, OD [address] [place] [address] Diabetic eye exam Ophthalmology Comment on above: Diabetic eye exam Start: 01-30-2024 End: 01-30-2024 Nursing evaluation of patient and report 01/30/2024 3:40 PM EDT Nurse Visit Urology [address] [place] [address] Wstr, Nurse Urol [facility] [address] [place] [address] SPT tube change Urology Comment on above: SPT tube change Start: 01-28-2024 Influenza vaccination [facility] Start: 01-16-2024 End: 01-16-2024 Nursing evaluation of patient and report 01/16/2024 4:00 PM EDT Nurse Visit Endocrinology [address] [place] [address] Ramana Bourgeois, RN [address] [id number] What foods are best for me Endocrinology Comment on above: What foods are best for me Start: 01-03-2024 End: 01-03-2024 Patient encounter procedure 01/03/2024 4:15 PM EDT Office Visit Neurology [address] [place] [address] Araceli Torres PA-C [address] [place] [address] 3 month follow up Neurology Comment on above: 3 month follow up Start: 01-02-2024 End: 01-02-2024 Nursing evaluation of patient and report 01/02/2024 3:40 PM EDT Nurse Visit Urology [address] [place] [address] Wstr, Nurse Urol [facility] [address] [place] [address] SPT tube change Urology Comment on above: SPT tube change Start: 01-02-2024 Hemoglobin A1c measurement HbA1C [facility] Start: 12-20-2023 End: 12-20-2023 ambulatory 12/20/2023 10:00 AM EDT Visit (SP) Office Hematology/Oncology [address] [place] [address] [place] [address] [place] [address] LEAD INSPECTOR/SPLENIC INFARCT/REF DEVIN GEORGE* - FIRST AVAILABLE Hematology/Oncology Comment on above: LEAD INSPECTOR/SPLENIC INFARCT/REF DEVIN GEORGE* - FIRST AVAILABLE Start: 12-06-2023 End: 12-06-2023 Patient encounter procedure 12/06/2023 10:15 AM EDT Office Visit [facility]ocrin[facility] [address] [facility] [place], [place] [address] Nilda Underwood APRN.BURIAL AGENT [address] [place] [address] RESCHEDULED FROM 10/30 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, 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]; 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, 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]; Diabetes mellitus with peripheral vascular disease (HCC) [E11.51] Endocrinology Comment on above: RESCHEDULED FROM 10/30 Type 2 diabetes demetri litus with proteinuria (HCC) (HCC) [E11.29, R80.9]; 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, 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]; Diabetes mellitus with peripheral vascular disease (HCC) [E11.51] Start: 12-05-2023 End: 12-05-2023 Patient encounter procedure 12/05/2023 4:00 PM EDT Office Visit Urology [address] [place], [place] [address] Cory Box PA-C [address] [place], [place] [id number] Yearly visit/SPT tube change / TIME MARY VILLALPANDO Urology Comment on above: Yearly visit/SPT tube change / TIME OK Nadia VILLALPANDO Start: 12-03-2023 BP CONTROLLED (<130/80) BP CONTROLLED (<130/80) [facility] Start: 11-08-2023 End: 11-08-2023 Nursing evaluation of patient and report 11/08/2023 2:00 PM EDT Nurse Visit Endocrinology [address] [address] Ramana Bourgeois, RN [address] [address] 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, 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]; 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, 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]; Diabetes mellitus with peripheral vascular disease (HCC) [E11.51] Endocrinology Comment on above: Type 2 diabetes mellitus with proteinuri a (HCC) (HCC) [E11.29, R80.9]; 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, 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]; Diabetes mellitus with peripheral vascular disease (HCC) [E11.51] Start: 11-01-2023 End: 11-01-2023 Nursing evaluation of patient and report 11/01/2023 11:00 AM EDT Nurse Visit [facility] [address] [place] [address] Michele Cardozo, VERNON In person 2wk post op [facility] Comment on above: In person 2wk post op Start: 10-31-2023 End: 10-31-2023 Nursing evaluation of patient and report 10/31/2023 3:40 PM EDT Nurse Visit Urology [address] [place] [id number] Wstr, Nurse Urol [facility] [address] [place], [place] [id number] SPT change Urology Comment on above: SPT change Start: 10-31-2023 End: 10-31-2023 Patient encounter procedure 10/31/2023 1:00 PM EDT Office Visit Endocrinology [address] [place] [address] Sandrita Johnson MD [address] [place] [address] 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, 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]; 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, 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]; Diabetes mellitus with peripheral vascular disease (HCC) [E11.51] Endocrinology Comment on above: Type 2 diabetes mellitus with proteinuri a (HCC) (HCC) [E11.29, R80.9]; 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, 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]; Diabetes mellitus with peripheral vascular disease (HCC) [E11.51] Start: 10-26-2023 Glaucoma screening Dilated Retinal Exam [facility] Start: 10-26-2023 Hepatitis C antibody, confirmatory test Dilated Retinal Exam [facility] Start: 10-20-2023 End: 10-20-2023 Admission to same day surgery center 10/20/2023 7:30 AM EDT - 10/20/2023 12:30 PM EDT Surgery Admitting [address] [place] [address] [place] [address] [place] [address] LUMBAR LAMINECTOMY REVISION L3-L5 W/ RELEASE OF TETHERED SPINAL CORD Admitting Comment on above: LUMBAR LAMINECTOMY REVISION L3-L5 W/ REL EASE OF TETHERED SPINAL CORD Start: 10-20-2023 End: 10-20-2023 Laminectomy release tethered spinal cord lumbar LUMBAR LAMINECTOMY W/ RELEASE OF TETHERED SPINAL CORD Tethered cord (HCC) 10/20/2023 7:30 AM EDT [facility] Start: 10-20-2023 Subsequent hospital visit by physician 10/20/2023 7:30 AM EDT Hospital Encounter Admitting [address] [place] [address] [place] [address] [place] [address] 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] Admitting Comment on above: 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] Start: 10-13-2023 End: 10-13-2023 Nursing evaluation of patient and report 10/13/2023 11:00 AM EDT Nurse Visit [facility] [address] [place] [address] Michele Cardozo, RN Phone Education [facility] Comment on above: Phone Education Start: 10-11-2023 End: 01-10-2024 CONFIRM BLOOD TYPE [facility] Comment on above: Expected: 10/11/2023, Expires: Start: 10-11-2023 End: 01-10-2024 TYPE AND SCREEN,30 DAY [facility] Work Phone: Comment on above: Expected: 10/11/2023, Expires: Start: 10-11-2023 End: 10-11-2023 ambulatory 10/11/2023 10:30 AM EDT Results Only [facility] [address] [place] [address] preop [facility] Comment on above: preop Start: 10-11-2023 End: 10-11-2023 Anesthesia consultation 10/11/2023 9:20 AM EDT PAT Pre Anesthesia [address] [place] [address] 1, Pacc [facility] [address] [place] [address] PRE OP Pre Anesthesia Comment on above: PRE OP Start: 10-10-2023 End: 01-09-2024 STAPHYLOCOCCUS AUREUS & MRSA SCREEN, PCR, NASAL STAPHYLOCOCCUS AUREUS & MRSA SCREEN, PCR, NASAL Lab Routine Pre-op testing Expected: 10/10/2023 (Approximate), Expires: 01/09/2024 [facility] Work Phone: Comment on above: Expected: 10/10/2023 (Approximate), Expi res: 01/09/2024 Start: 10-09-2023 End: 10-09-2023 Patient encounter procedure 10/09/2023 4:00 PM EDT Office Visit [facility] [address] [facility] [place] [address] Devin George APRN.BURIAL AGENT [address] [place], [place] [address] follow up- discuss labs [facility] Comment on above: follow up- discuss labs Start: 10-07-2023 [facility] Start: 10-03-2023 End: 10-03-2023 Nursing evaluation of patient and report 10/03/2023 3:40 PM EDT Nurse Visit Urology [address] [place] [address] Wstr, Nurse Urol [facility] [address] [place], [place] [address] SPT change Urology Comment on above: SPT change Start: 10-02-2023 End: 10-02-2023 Patient encounter procedure 10/02/2023 2:00 PM EDT Office [place] [id number] pr eop [employer] [facility] Comment on above: pr eop Start: 09-28-2023 End: 09-28-2023 Patient encounter procedure 09/28/2023 5:20 PM EDT Office Visit [facility] [address] [facility] [place] [address] Devin George APRN.BURIAL AGENT [address] [place] [id number] Medicare wellness [facility] Comment on above: Medicare wellness Start: 09-28-2023 End: 12-28-2023 CBC W Auto Differential panel - Blood COMPLETE BLOOD COUNT AND DIFFERENTIAL Lab Routine Medication management Expected: 09/28/2023, Expires: 12/28/2023 [facility] Comment on above: Expected: 09/28/2023, Expires: Start: 09-28-2023 End: 12-28-2023 Comprehensive metabolic 2000 panel - Serum or Plasma COMPREHENSIVE METABOLIC PANEL Lab Routine 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) Diabetes mellitus with peripheral vascular disease (HCC) Bilateral leg edema Expected: 09/28/2023, Expires: 12/28/2023 [facility] Comment on above: Expected: 09/28/2023, Expires: Start: 09-28-2023 End: 12-28-2023 Hemoglobin A1c in Blood HEMOGLOBIN A1C Lab Routine 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) Diabetes mellitus with peripheral vascular disease (HCC) Expected: 09/28/2023, Expires: 12/28/2023 [facility] Work Phone: Comment on above: Expected: 09/28/2023, Expires: 4 Start: 09-28-2023 End: 12-28-2023 LIPID PANEL, NONFASTING LIPID PANEL, NONFASTING Lab Routine Mixed hyperlipidemia Expected: 09/28/2023, Expires: 12/28/2023 [facility] Comment on above: Expected: 09/28/2023, Expires: Start: 09-28-2023 End: 12-28-2023 Thyrotropin [Units/volume] in Serum or Plasma THYROID STIMULATING HORMONE Lab Routine Low TSH level Hyperthyroidism Expected: 09/28/2023, Expires: 12/28/2023 [facility] Comment on above: Expected: 09/28/2023, Expires: Start: 08-30-2023 Hepatitis B surface antibody level LDL CHOLESTEROL [facility] Start: 08-25-2023 ANNUAL PCP TEAM CHRONIC DISEASE VISIT ANNUAL PCP TEAM CHRONIC DISEASE VISIT [facility] Start: 08-25-2023 BP CONTROLLED (<130/80) BP CONTROLLED (<130/80) [facility] Start: 08-13-2023 [facility] Start: 08-13-2023 [facility] Start: 08-13-2023 Bacteria identified in Urine by Culture [facility] Start: 07-20-2023 BP CONTROLLED (<130/80) BP CONTROLLED (<130/80) [facility] Start: 07-13-2023 Hemoglobin A1c measurement HbA1C [facility] Start: 07-13-2023 Hemoglobin A1c/Hemoglobin.total in Blood HbA1C [facility] Start: 05-12-2023 End: 08-11-2023 Thyrotropin [Units/volume] in Serum or Plasma TSH BLD Lab Routine Low TSH level Hyperthyroidism Expected: 05/12/2023, Expires: 08/11/2023 [facility] Work Phone: Comment on above: Expected: 05/12/2023, Expires: 4 Start: 05-12-2023 End: 08-11-2023 Thyroxine (T4) free [Mass/volume] in Serum or Plasma T4 FREE/FREE THYROX Lab Routine Low TSH level Hyperthyroidism Expected: 05/12/2023, Expires: 08/11/2023 [facility] Work Phone: Comment on above: Expected: 05/12/2023, Expires: 4 Start: 05-12-2023 End: 08-11-2023 Triiodothyronine (T3) Free [Mass/volume] in Serum or Plasma T3 FREE BLD Lab Routine Low TSH level Hyperthyroidism Expected: 05/12/2023, Expires: 08/11/2023 [facility] Work Phone: Comment on above: Expected: 05/12/2023, Expires: 4 Start: 05-02-2023 End: 08-01-2023 CBC panel - Blood by Automated count CBC Lab Routine Abnormal uterine bleeding (AUB) Expected: 05/02/2023, Expires: 08/01/2023 [facility] Work Phone: Comment on above: Expected: 05/02/2023, Expires: 4 Start: 04-21-2023 End: 04-21-2023 [facility] Start: 04-18-2023 Hemoglobin A1c/Hemoglobin.total in Blood HBA1C [facility] Start: 02-22-2023 BP CONTROLLED (<130/80) BP CONTROLLED (<130/80) [facility] in Start: 02-16-2023 BP CONTROLLED (<130/80) BP CONTROLLED (<130/80) [facility] Start: 02-09-2023 ANNUAL PCP TEAM CHRONIC DISEASE VISIT ANNUAL PCP TEAM CHRONIC DISEASE VISIT [facility] Start: 02-09-2023 BP CONTROLLED (<130/80) BP CONTROLLED (<130/80) [facility] in Start: 02-09-2023 Hepatitis B surface antibody level LDL CHOLESTEROL [facility] Start: 02-02-2023 [facility] Start: 02-02-2023 Bacteria identified in Urine by Culture Urine Culture [facility] Start: 01-27-2023 Influenza vaccination [facility] Start: 01-16-2023 End: 03-18-2023 Bacteria identified in Urine by Culture URINE CULTURE Microbiology Routine Recurrent UTI Expected: 01/16/2023, Expires: 03/18/2023 [facility] Work Phone: Comment on above: Expected: 01/16/2023, Expires: Start: 01-12-2023 Mammography [facility] Start: 12-12-2022 [facility] Start: 12-12-2022 Bacteria identified in Urine by Culture Urine Culture [facility] Start: 12-09-2022 BP CONTROLLED (<130/80) BP CONTROLLED (<130/80) [facility] Start: 11-28-2022 Hemoglobin A1c/Hemoglobin.total in Blood HBA1C [facility] Start: 08-16-2022 [facility] Start: 08-16-2022 Blood culture [facility] Start: 08-16-2022 End: 08-16-2022 [facility] Start: 07-29-2022 Hepatitis B surface antibody level LDL CHOLESTEROL [facility] Start: 07-28-2022 ANNUAL PCP TEAM CHRONIC DISEASE VISIT ANNUAL PCP TEAM CHRONIC DISEASE VISIT [facility] Start: 07-28-2022 BP CONTROLLED (<130/80) BP CONTROLLED (<130/80) [facility] Start: 07-28-2022 COVID-19 VACCINE (#1) COVID-19 VACCINE (#1) [facility] Comment on above: Postponed from 1986 (Declined at t his time) Postponed from 05/14 (Declined at this time) Start: 07-28-2022 COVID-19 VACCINE (1) COVID-19 VACCINE (1) [facility] Comment on above: Postponed from 1986 (Declined at t his time) Start: 07-28-2022 HPV TESTING HPV TESTING [facility] Start: 07-28-2022 PAP TESTING PAP TESTING [facility] Start: 07-18-2022 Patient discharge [facility] Start: 07-16-2022 Inhalation therapy procedure [facility] Start: 07-15-2022 Referral to service [facility] Start: 07-15-2022 [facility] Start: 07-14-2022 [facility] Start: 07-13-2022 Care planning and problem solving actions [facility] Start: 07-13-2022 Consultation [facility] Start: 07-13-2022 Patient referral to dietitian [facility] Start: 07-13-2022 [facility] Start: 07-13-2022 Application of intermittent pneumatic compression device [facility] Start: 07-13-2022 Following clinical pathway protocol [facility] Start: 07-13-2022 Assessment of risk of venous thromboembolism [facility] Start: 07-13-2022 Care regimes management [facility] Start: 07-13-2022 Consultation for treatment [facility] Start: 07-13-2022 Elevation of affected extremity [facility] Start: 07-13-2022 Insertion of catheter into peripheral vein [facility] Start: 07-13-2022 Measuring intake and output [facility] Start: 07-13-2022 Notification of physician [facility] Start: 07-13-2022 Providing care according to standard [facility] Start: 07-13-2022 Provision of activity privileges [facility] Start: 07-13-2022 Referral to can tester [facility] Start: 07-13-2022 [facility] Start: 07-13-2022 Verification routine [facility] Start: 07-13-2022 Admission procedure [facility] Start: 07-12-2022 End: 07-13-2022 Blood culture [facility] Start: 07-07-2022 Hepatitis C antibody, confirmatory test DILATED RETINAL EXAM [facility] Start: 04-15-2022 Hemoglobin A1c/Hemoglobin.total in Blood HBA1C [facility] Start: 04-11-2022 Following clinical pathway protocol [facility] Start: 02-28-2022 End: 03-14-2022 SARS-CoV-2 (COVID-19) RNA [Presence] in Respiratory specimen by MALIK with probe detection [facility] Work Phone: Comment on above: Expected: 02/28/2022, Expires: 2 Start: 02-22-2022 End: 04-24-2022 T4/FTI/T4U T4/FTI/T4U Lab Routine Thyroid nodule Pharyngeal dysphagia Globus sensation Tenderness of neck Expected: 02/22/2022, Expires: 04/24/2022 [facility] Work Phone: Comment on above: Expected: 02/22/2022, Expires: 2 Start: 02-22-2022 End: 04-24-2022 Thyrotropin [Units/volume] in Serum or Plasma TSH BLD Lab Routine Thyroid nodule Pharyngeal dysphagia Globus sensation Tenderness of neck Expected: 02/22/2022, Expires: 04/24/2022 [facility] Work Phone: Comment on above: Expected: 02/22/2022, Expires: 2 Start: 02-22-2022 End: 04-24-2022 TSH RECEPTOR AB TSH RECEPTOR AB Lab Routine Thyroid nodule Pharyngeal dysphagia Globus sensation Tenderness of neck Expected: 02/22/2022, Expires: 04/24/2022 [facility] Work Phone: Comment on above: Expected: 02/22/2022, Expires: 2 Start: 02-09-2022 End: 04-11-2022 Basic metabolic 2000 panel - Serum or Plasma [facility] Work Phone: Comment on above: Expected: 02/09/2022, Expires: 2 Start: 02-09-2022 End: 04-11-2022 LIPID PANEL, NONFASTING [facility] Work Phone: Comment on above: Expected: 02/09/2022, Expires: 2 Start: 02-09-2022 End: 04-11-2022 Urinalysis complete panel - Urine [facility] Work Phone: Comment on above: Expected: 02/09/2022, Expires: 2 Start: 01-27-2022 Influenza vaccination INFLUENZA (#1) [facility] Start: 12-09-2021 End: 02-08-2022 ALGN JANICE IGE [facility] Work Phone: Comment on above: Expected: 12/09/2021, Expires: 2 Start: 11-22-2021 Patient discharge [facility] Work Phone: Start: 11-21-2021 Following clinical pathway protocol [facility] Work Phone: Start: 11-21-2021 Referral to occupational therapist [facility] Work Phone: Start: 11-21-2021 Referral to service [facility] Work Phone: Start: 11-21-2021 Assessment of risk of venous thromboembolism [facility] Work Phone: Start: 11-21-2021 Care regimes management [facility] Work Phone: Start: 11-21-2021 Consultation for treatment [facility] Work Phone: Start: 11-21-2021 Elevation of affected extremity [facility] Work Phone: Start: 11-21-2021 Insertion of catheter into peripheral vein [facility] Work Phone: Start: 11-21-2021 Providing care according to standard [facility] Work Phone: Start: 11-21-2021 Provision of activity privileges [facility] Work Phone: Start: 11-21-2021 Wound care [facility] Work Phone: Start: 11-21-2021 [facility] Work Phone: Start: 11-21-2021 Verification routine [facility] Work Phone: Start: 11-21-2021 Admission procedure [facility] Work Phone: Start: 11-21-2021 Patient referral to dietitian [facility] Work Phone: Start: 11-20-2021 End: 11-20-2021 [facility] Work Phone: Start: 11-20-2021 End: 11-20-2021 Blood culture [facility] Work Phone: Start: 2021 Mammography MAMMOGRAM [facility] Start: 11-05-2021 Bacteria identified in Urine by Culture Urine Culture [facility] Work Phone: Start: 10-29-2021 Hemoglobin A1c/Hemoglobin.total in Blood [facility] Start: 08-26-2021 End: 10-26-2021 Pyridoxine [Mass/volume] in Serum or Plasma [facility] Work Phone: Comment on above: Expected: 08/26/2021, Expires: Start: 08-20-2021 Emergency department visit low/moder severity EMERGENCY DEPT VISIT [facility] Work Phone: Start: 2000 HEPATITIS B (1 of 3 - Risk 3-dose series) HEPATITIS B (1 of 3 - Risk 3-dose series) [facility] Start: 05-14-1982 COVID-19 VACCINE (#1) COVID-19 VACCINE (#1) [facility] Start: 1981 HEPATITIS B (1 of 3 - 3-dose series) HEPATITIS B (1 of 3 - 3-dose series) [facility] Acid fast bacilli culture [facility] ALLERGEN SKIN TEST-LATEX ALLERGE N SKIN TEST-LATEX Procedures Routine Anaphylaxis, initial encounter Ordered: 12/09/2021 [facility] Work Phone: Comment on above: Ordered: 12/09/2021 Anaerobic Culture Anaerobic Culture [facility] Anaerobic microbial culture Anaerobic Culture [facility] Bacteria identified in Blood by Culture Blood Culture [facility] Bacteria identified in Unspecified specimen by Anaerobe culture [facility] Bacteria identified in Urine by Culture Urine Culture [facility] Blood culture [facility] Work Phone: ECG COMPLETE ECG COMPLETE ECG Routine Paroxysmal SVT (supraventricular tachycardia) (HCC) Ordered: 09/28/2023 [facility] Comment on above: Ordered: 09/28/2023 End: 03-04-2025 EGD DIAGNOSTIC EGD DIAGNOSTIC Endoscopy Routine Oropharyngeal dysphagia 1 Occurrences starting 03/04/2024 until 03/04/2025 [facility] Work Phone: Comment on above: 1 Occurrences starting 03/04/2024 until 03/04/2025 End: 08-26-2022 EMG(NEURO/NI) EMG(NEURO/NI) EMG Routine Neuropathy Spinal stenosis of lumbar region without neurogenic claudication 1 Occurrences starting 08/26/2021 until 08/26/2022 [facility] Work Phone: Comment on above: 1 Occurrences starting 08/26/2021 until 08/26/2022 End: 03-16-2024 ANGIE SCREENING ANGIE SCREENING Radiology Routine Encounter for screening mammogram for breast cancer 1 Occurrences starting 02/15/2023 until 03/16/2024 [facility] Work Phone: Comment on above: 1 Occurrences starting 02/15/2023 until 03/16/2024 End: 05-10-2025 MG Breast Screening ANGIE SCREENING Radiology Routine Encounter for screening mammogram for breast cancer 1 Occurrences starting 04/10/2024 until 05/10/2025 [facility] Comment on above: 1 Occurrences starting 04/10/2024 until 05/10/2025 MG Breast Screening ANGIE SCREENIN G Radiology Routine Encounter for screening mammogram for breast cancer 04/24/2024 3:34 PM EST [facility] Work Phone: Microbial culture, routine Wound Culture [facility] Microscopic observat ion [Identifier] in Unspecified specimen by Gram stain Gram Stain [facility] Microscopic observat ion [Identifier] in Unspecified specimen by Gram stain [facility] End: 08-16-2024 MR Cervical spine WO contrast MRI CERVICAL SPINE WO IVCON Radiology Routine Spinal stenosis of cervical region 1 Occurrences starting 07/18/2023 until 08/16/2024 [facility] Work Phone: Comment on above: 1 Occurrences starting 07/18/2023 until 08/16/2024 End: 08-16-2024 MR Lumbar spine WO contrast MRI LUMBAR SPINE WO IVCON Radiology Routine Chronic bilateral low back pain without sciatica 1 Occurrences starting 07/18/2023 until 08/16/2024 [facility] Work Phone: Comment on above: 1 Occurrences starting 07/18/2023 until 08/16/2024 End: 08-16-2024 MR Thoracic spine WO contrast MRI THORACIC SPINE WO IVCON Radiology Routine Radiculopathy of lumbar region 1 Occurrences starting 07/18/2023 until 08/16/2024 [facility] Work Phone: Comment on above: 1 Occurrences starting 07/18/2023 until 08/16/2024 End: 09-25-2022 Mri brain brain stem w/o w/contrast material MRI BRAIN WO/W IVCON Radiology Routine Manley's palsy Facial weakness 1 Occurrences starting 08/26/2021 until 09/25/2022 [facility] Work Phone: Comment on above: 1 Occurrences starting 08/26/2021 until 09/25/2022 End: 05-31-2024 Mri brain brain stem w/o w/contrast material MRI BRAIN WO/W IVCON Radiology Routine Positional headache 1 Occurrences starting 05/02/2023 until 05/31/2024 [facility] Work Phone: Comment on above: 1 Occurrences starting 05/02/2023 until 05/31/2024 End: 05-31-2024 Mri spinal canal cervical w/o contrast matrl MRI CERVICAL SPINE WO IVCON Radiology Routine Abnormal reflex 1 Occurrences starting 05/02/2023 until 05/31/2024 [facility] Work Phone: Comment on above: 1 Occurrences starting 05/02/2023 until 05/31/2024 End: 09-25-2022 Mri spinal canal lumbar w/o contrast material MRI LUMBAR SPINE WO IVCON Radiology Routine Spinal stenosis of lumbar region without neurogenic claudication 1 Occurrences starting 08/26/2021 until 09/25/2022 [facility] Work Phone: Comment on above: 1 Occurrences starting 08/26/2021 until 09/25/2022 Mycobacterium sp identified in Unspecified specimen by Organism specific culture [facility] PAP TEST PAP TEST Lab Rou tomasa Encounter for screening for malignant neoplasm of cervix Ordered: 05/02/2023 [facility] Work Phone: Comment on above: Ordered: 05/02/2023 Patient Education [facility] Work Phone: Patient referral [facility] Work Phone: Percutaneous tests w/allergenic extracts ALLRGY SKN TST (EXTRACTS) IMMEDI Procedures Routine Anaphylaxis, initial encounter Ordered: 12/09/2021 [facility] Work Phone: Comment on above: Ordered: 12/09/2021 End: 05-01-2024 Polysomnogram POLYSOMNOGRAM (PSG) Procedures Routine Obstructive sleep apnea 1 Occurrences starting 05/02/2023 until 05/01/2024 [facility] Work Phone: Comment on above: 1 Occurrences starting 05/02/2023 until 05/01/2024 End: 01-14-2023 Screening mammography bi 2-view breast inc cad ANGIE SCREENING Radiology Routine Encounter for screening mammogram for breast cancer 1 Occurrences starting 12/15/2021 until 01/14/2023 [facility] Work Phone: Comment on above: 1 Occurrences starting 12/15/2021 until 01/14/2023 End: 08-31-2022 SUPRAPUBIC TUBE CHANGE SUPRAPUBIC TUBE CHANGE Procedures Routine Neurogenic dysfunction of the urinary bladder Once per month for 12 Occurrences starting 08/31/2021 until 08/31/2022 [facility] Work Phone: Comment on above: Once per month for 12 Occurrences starti ng 08/31/2021 until 08/31/2022 End: 09-07-2023 SUPRAPUBIC TUBE CHANGE SUPRAPUBIC TUBE CHANGE Procedures Routine Neurogenic bladder 99 Occurrences starting 09/06/2022 until 09/07/2023 [facility] Work Phone: Comment on above: 99 Occurrences starting 09/06/2022 until 09/07/2023 End: 09-04-2024 SUPRAPUBIC TUBE CHANGE SUPRAPUBIC TUBE CHANGE Procedures Routine Neurogenic bladder 99 Occurrences starting 09/05/2023 until 09/04/2024 [facility] Work Phone: Comment on above: 99 Occurrences starting 09/05/2023 until 09/04/2024 End: 10-04-2025 SUPRAPUBIC TUBE CHANGE SUPRAPUBIC TUBE CHANGE Procedures Routine Neurogenic bladder 99 Occurrences starting 10/07/2024 until 10/04/2025 [facility] Work Phone: Comment on above: 99 Occurrences starting 10/07/2024 until 10/04/2025 SURGICAL PATHOLOGY [facility] Work Phone: Comment on above: Release Upon Ordering for 1 Occurrences starting 03/25/2024, 1 completed URINALYSIS, REFLEX MICROSCOPIC URINALYSIS, REFLEX MICROSCOPIC Lab Routine Screening for genitourinary condition Ordered: 06/13/2022 [facility] Work Phone: Comment on above: Ordered: 06/13/2022 URINALYSIS, REFLEX MICROSCOPIC URINALYSIS, REFLEX MICROSCOPIC Lab Routine Screening for genitourinary condition Ordered: 07/20/2022 [facility] Work Phone: Comment on above: Ordered: 07/20/2022 URINALYSIS, REFLEX MICROSCOPIC URINALYSIS, REFLEX MICROSCOPIC Lab Routine Screening for genitourinary condition Ordered: 01/16/2023 [facility] Work Phone: Comment on above: Ordered: 01/16/2023 End: 05-31-2024 Us pelvic nonobstetric image dcmtn limited/f/u US FEMALE PELVIS TRANSABD LTD Radiology Routine Abnormal uterine bleeding (AUB) 1 Occurrences starting 05/02/2023 until 05/31/2024 [facility] Work Phone: Comment on above: 1 Occurrences starting 05/02/2023 until 05/31/2024 End: 03-11-2023 Us soft tissue head & neck real time imge docm US THYROID/PARATHYROID Radiology Routine Thyroid cyst 1 Occurrences starting 02/09/2022 until 03/11/2023 [facility] Work Phone: Comment on above: 1 Occurrences starting 02/09/2022 until 03/11/2023 US Spleen US ABD SPLEEN Ra diology Routine Splenic infarct 03/18/2024 1:20 PM EDT [facility] Work Phone: End: 05-10-2025 US Thyroid gland US THYROID/PARATHYROID Radiology Routine Thyroid cyst 1 Occurrences starting 04/10/2024 until 05/10/2025 [facility] Work Phone: Comment on above: 1 Occurrences starting 04/10/2024 until 05/10/2025 US Thyroid gland US THYROID/PARA THYROID Radiology Routine Thyroid cyst 04/18/2024 4:16 PM EST [facility] Work Phone: End: 05-31-2024 Us transvaginal US FEMALE PELVIS TRANSVAG Radiology Routine Abnormal uterine bleeding (AUB) 1 Occurrences starting 05/02/2023 until 05/31/2024 [facility] Work Phone: Comment on above: 1 Occurrences starting 05/02/2023 until 05/31/2024 Wound Culture Wound Culture [facility] Wound microscopy, cu lture and sensitivities [facility] X-ray exam of abdomen XR COLONIC TRANSIT IMAGE 3 Radiology Routine Neurogenic bowel 08/20/2021 4:04 PM EDT [facility] Work Phone: [facility] Immunizations Immunization Date Immunization Notes Care Provider Fa kristina 03-02-2022 influenza, injectabl e, quadrivalent, preservative free [facility] 03-02-2022 influenza, seasonal, injectable Dr. Will Brannon Work Phone: [facility] 03-02-2022 influenza virus vacc ine, unspecified formulation Will Brannon MD Work Phone: [facility] 03-23-2021 tetanus toxoid, redu modesto diphtheria toxoid, and acellular pertussis vaccine, adsorbed [employer] Work Phone: [facility] 03-08-2021 influenza, injectabl e, quadrivalent, preservative free Dr. Will Brannon MD Work Phone: [facility] 03-08-2021 influenza, seasonal, injectable [employer] Work Phone: [facility] Work Phone: 03-12-2020 influenza, seasonal, injectable [employer] Work Phone: [facility] 02-27-2020 Influenza virus vaccine [facility] 02-27-2020 influenza, seasonal, injectable, preservative free Too Parker MD Work Phone: [facility] 02-26-2019 Influenza virus vaccine [facility] 02-26-2019 influenza, seasonal, injectable, preservative free Too Parker MD Work Phone: [facility] 04-24-2018 influenza virus vacc ine, unspecified formulation [employer] Work Phone: [facility] Work Phone: 04-24-2018 influenza, injectabl e, quadrivalent, preservative free Dr. Will Brannon MD Work Phone: [facility] 02-20-2018 influenza, injectabl e, quadrivalent, preservative free [facility] 02-20-2018 influenza, seasonal, injectable [facility] 03-07-2017 influenza, injectabl e, quadrivalent, preservative free Dr. Will Brannon MD Work Phone: [facility] 03-07-2017 influenza, seasonal, injectable [facility] Work Phone: [facility] 06-17-2016 pneumococcal polysaccharide vaccine, 23 valent [facility] Work Phone: [facility] 03-25-2016 influenza, injectabl e, quadrivalent, preservative free Dr. Will Brannon MD Work Phone: [facility] 03-25-2016 influenza, seasonal, injectable [facility] [employer] Work Phone: [facility] 06-01-2015 pneumococcal conjuga te vaccine, 13 valent [facility] [employer] Work Phone: [facility] Work Phone: 01-27-2015 influenza, injectabl e, quadrivalent, preservative free [facility] 01-27-2015 influenza, seasonal, injectable [facility] 03-27-2014 Influenza virus vaccine [facility] 03-27-2014 influenza, seasonal, injectable, preservative free Too Parker MD Work Phone: [facility] 09-08-2009 tetanus toxoid, redu modesto diphtheria toxoid, and acellular pertussis vaccine, adsorbed [employer] Work Phone: [facility] Work Phone: Payers Date Payer Category Payer Self-pay [id number] 2021 Medicaid [id number] 2021 Medicare [id number] 2021 [facility] [id number] 2017 Medicaid MEDICAID [facility] MEDICAID [id number] 2017-Present [phone] [address] [place] [address] Medicaid [id number] 2016 Medicaid [id number] 2016 Medicare MEDICARE MEDICAR E A AND B [id number] 2016-Present [phone] [address] [address] [place] [address] Medicare [id number] 2016 Medicare [id number] [id number] [id number] 2016 Medicare [id number] 1981 Unknown [id number] 2.840.1.841882.3.579.2.651 1981 Unknown [id number] 2.840.1.222944.3.579.2. 1981 Unknown [id number] 2.840.1.638457.3.579.2 1981 Unknown [id number] .840.1.729594.3.579.2.62 1981 Unknown [id number] 2840.1.915268.3.579.262 1981 Unknown [id number] 2840.1.458735.3.579.2.62 1981 Unknown [id number] 2.840.1.938682.3.579.2.62 1981 Unknown [id number] 2.16840.1.574884.3.579.262 1981 Unknown [id number] 2840.1.226686.3.579.2.62 1981 Unknown [id number] 2.16.840.1.114216.3.579.2.627 1981 Unknown [id number] 2.16.840.1.705884.3.579.2.627 1981 Unknown [id number] 2.16.840.1.963726.3.579.2.627 1981 Unknown [id number] 2.16.840.1.876898.3.579.2.627 Medicare [id number] Unknown [id number] 2.16.840.1.349173.3.579.2.462 Unknown [id number] 2..840.1.507533.3.579.2.462 Unknown [id number] 2..840.1.988490.3.579.2.462 Unknown [id number] 2.840.1.430506.3.579.2.462 Unknown [id number] 2.840.1.900127.3.579.2.462 Unknown [id number] 2.840.1.310567.3.579.2.462 Unknown [id number] 2.840.1.109855.3.579.2.462 Unknown [id number] 2.840.1.423784.3.579.2.462 Unknown [id number] 2.840.1.709442.3.579.2.462 Unknown [id number] 2.16840.1.709617.3.579.2.462 Unknown [id number] 2.840.1.946458.3.579.2.462 Unknown [id number] 2.16.840.1.180020.3.579.2.462 Unknown [id number] 2.16.840.1.351029.3.579.2.462 Unknown [id number] 2.16.840.1.087858.3.579.2.462 Unknown [id number] 2.16.840.1.601712.3.579.2.462 Unknown [id number] 2.16.840.1.702269.3.579.2.462 Unknown [id number] 2.16.840.1.417015.3.579.2.462 Unknown [id number] 2.16.840.1.124069.3.579.2.462 Unknown [id number] 2.16.840.1.631007.3.579.2.462 Unknown [id number] 2.16.840.1.679494.3.579.2.462 Unknown [id number] 2.16.840.1.091365.3.579.2.462 Social History Date Type Detail Facility Start: 01-06-2011 End: 02-09-2022 Never smoked tobacco (finding) [facility] Sex Assigned At [facility] Start: 08-11-2021 End: 08-26-2021 Alcohol intake Current drinker of alcohol (finding) [facility] Start: 11-30-2017 History SDOH Alcohol Comment SOCIALLY [facility] Start: 1980 Sex Assigned At Not on file [facility] Start: 08-10-2021 End: 03-15-2022 Exposure to SARS-CoV-2 (event) Not sure [facility] Start: 08-27-2021 End: 09-06-2021 Exposure to SARS-CoV-2 (event) Unable to assess [facility] Work Phone: Start: 09-17-2021 End: 10-07-2023 Tobacco smoking status NHIS Unknown if ever smoked [facility] Start: 02-12-2020 None [facility] Start: 09-23-2020 Homeless [facility] Start: 10-14-2020 Non-smoker [facility] Start: 1980 Sex Assigned At Female W [facility] Start: 09-22-2021 End: 07-09-2024 Alcohol intake Ex-drinker (finding) [facility] Start: 09-22-2021 History SDOH Alcohol Comment social [facility] Start: 01-06-2011 End: 02-09-2022 Tobacco use and exposure Smokeless tobacco non-user [facility] Work Phone: Start: 02-03-2022 History SDOH Alcohol Frequency 98 [facility] Start: 02-03-2022 History SDOH Alcohol Std Drinks 0 [facility] Start: 02-03-2022 History SDOH Alcohol Binge 1 [facility] Start: 02-03-2022 History SDOH Social Connections Phone 2 [facility] Start: 02-03-2022 History SDOH Social Connections Living 3 [facility] Start: 02-03-2022 History SDOH Stress 5 [facility] Start: 02-02-2022 End: 10-04-2022 History of Social function [facility] Start: 02-02-2022 End: 10-04-2022 Social connection and isolation panel [facility] Do you belong to any clubs or organizations such as hoahaoism groups, [employer], [employer] or athletic groups, or school groups? No [facility] Are you now , , , , never or living with a partner? [facility] How often to you hav e a drink containing alcohol? Patient refused [facility] How often do you hav e 6 or more drinks on 1 occasion? Never [facility] How hard is it for y ou to pay for the very basics like food, housing, medical care, and heating Somewhat hard [facility] Do you feel stress - tense, restless, nervous, or anxious, or unable to sleep at night because your mind is troubled all the time - these days [OSQ] Very much [facility] (I/We) worried soha er (my/our) food would run out before (I/we) got money to buy more. Sometimes true [facility] Do you belong to any clubs or organizations such as hoahaoism groups, [employer], [employer] or athletic groups, or school groups? Yes [facility] How often to you hav e a drink containing alcohol? Monthly or less [facility] How many standard dr inks containing alcohol do you have on a typical day? 1 or 2 [facility] (I/We) worried wheth er (my/our) food would run out before (I/we) got money to buy more. Never true [facility] Do you feel stress - tense, restless, nervous, or anxious, or unable to sleep at night because your mind is troubled all the time - these days [OSQ] Only a little [facility] Start: 11-27-2016 End: 08-16-2024 Sex Female (finding) [facility] NEGATED: Highlighted row [facility] NEGATED: Highlighted row [facility] Medical Equipment Procedure Code Equipment Code Equipment Origin al Text Equipment Identifier Dates Mesh Bd Ventrali ght St 6in [place] [employer] Low Profile - [id number] Start: 12-11-2017 [id number], [id number] Start: 12-05-2017 End: 02-09-2022 Comment on above: Test blood sugar(s) 2 times daily. Dx: Other DM Code E13.29 Insulin: No One needle with each lantus shot once a day. Dx: E13.29 on insulin Use once daily with Victoza Test blood sugar 2 t imes/day. Dx: Other DM Code E13.29 Insulin Use: No Pen Needle, Diab etic (Bd Ultra-Fine Hope Pen Needle) 32 gauge x 5/32 needle Start: 03-05-2021 Pen Needle, Diab etic (Bd Ultra-Fine Hope Pen Needle) 32 gauge x 5/32 needle Start: 03-05-2021 Pen Needle, Diab etic (Bd Ultra-Fine Hope Pen Needle) 32 gauge x 5/32 needle Start: 03-05-2021 Pen Needle, Diab etic (Bd Ultra-Fine Hope Pen Needle) 32 gauge x 5/32 needle Start: 03-05-2021 Pen Needle, Diab etic (Bd Ultra-Fine Hope Pen Needle) 32 gauge x 5/32 needle Start: 03-05-2021 Pen Needle, Diab etic (Bd Ultra-Fine Hope Pen Needle) 32 gauge x 5/32 needle Start: 03-05-2021 Pen Needle, Diab etic (Bd Ultra-Fine Hope Pen Needle) 32 gauge x 5/32 needle Start: 03-05-2021 Pen Needle, Diab etic (Bd Ultra-Fine Hope Pen Needle) 32 gauge x 5/32 needle Start: 03-05-2021 Pen Needle, Diab etic (Bd Ultra-Fine Hope Pen Needle) 32 gauge x 5/32 needle Start: 03-05-2021 Pen Needle, Diab etic (Bd Ultra-Fine Hope Pen Needle) 32 gauge x 5/32 needle Start: 03-05-2021 Pen Needle, Diab etic (Bd Ultra-Fine Hope Pen Needle) 32 gauge x 5/32 needle Start: 03-05-2021 Pen Needle, Diab etic (Bd Ultra-Fine Hope Pen Needle) 32 gauge x 5/32 needle Start: 09-01-2022 Pen Needle, Diab etic (Bd Ultra-Fine Hope Pen Needle) 32 gauge x 5/32 needle Start: 03-05-2021 Pen Needle, Diab etic (Bd Ultra-Fine Hope Pen Needle) 32 gauge x 5/32 needle Start: 09-01-2022 Pen Needle, Diab etic (Bd Ultra-Fine Hope Pen Needle) 32 gauge x 5/32 needle Start: 03-05-2021 Pen Needle, Diab etic (Bd Ultra-Fine Hope Pen Needle) 32 gauge x 5/32 needle Start: 09-01-2022 Pen Needle, Diab etic (Bd Ultra-Fine Hope Pen Needle) 32 gauge x 5/32 needle Start: 03-05-2021 Pen Needle, Diab etic (Bd Ultra-Fine Hope Pen Needle) 32 gauge x 5/32 needle Start: 09-01-2022 Pen Needle, Diab etic (Bd Ultra-Fine Hope Pen Needle) 32 gauge x 5/32 needle Start: 03-05-2021 Pen Needle, Diab etic (Bd Ultra-Fine Hope Pen Needle) 32 gauge x 5/32 needle Start: 09-01-2022 Pen Needle, Diab etic (Bd Ultra-Fine Hope Pen Needle) 32 gauge x 5/32 needle Start: 03-05-2021 Pen Needle, Diab etic (Bd Ultra-Fine Hope Pen Needle) 32 gauge x 5/32 needle Start: 09-01-2022 Pen Needle, Diab etic (Bd Ultra-Fine Hope Pen Needle) 32 gauge x 5/32 needle Start: 03-05-2021 Pen Needle, Diab etic (Bd Ultra-Fine Hope Pen Needle) 32 gauge x 5/32 needle Start: 09-01-2022 Pen Needle, Diab etic (Bd Ultra-Fine Hope Pen Needle) 32 gauge x 5/32 needle Start: 03-05-2021 Pen Needle, Diab etic (Bd Ultra-Fine Hope Pen Needle) 32 gauge x 5/32 needle Start: 09-01-2022 Pen Needle, Diab etic (Bd Ultra-Fine Hope Pen Needle) 32 gauge x 5/32 needle Start: 03-05-2021 Pen Needle, Diab etic (Bd Ultra-Fine Hope Pen Needle) 32 gauge x 5/32 needle Start: 09-01-2022 Pen Needle, Diab etic (Bd Ultra-Fine Hope Pen Needle) 32 gauge x 5/32 needle Start: 03-05-2021 Pen Needle, Diab etic (Bd Ultra-Fine Hope Pen Needle) 32 gauge x 5/32 needle Start: 09-01-2022 Goals Date Patient Goal Desired Activity /State Personal health goal Functional Status Date Assessment Result Facility 08-16-2024 Functional status Unable to Assess;Post O p [facility] Work Phone: 08-15-2024 Functional status Ambulates [facility] Work Phone: 06-02-2024 Functional Status Independent [facility] 06-02-2024 Functional Status Standard Safet y ID band on, Allergy Band on, Call device within reach, Bed in low position, Wheels locked, Upper/Half-Length side-rails up, Phone within reach, personal items within reach, Bedside Cart Locked, Visitor at bedside [facility] 04-07-2024 Functional Status Activity Sabrinaemanuel ruiz Independent [facility] 04-06-2024 Functional Status Standard Safet y ID band on, Allergy Band on, Call device within reach, Bed in low position, Wheels locked, Upper/Half-Length side-rails up, Phone within reach, personal items within reach, Bedside Cart Locked, Visitor at bedside [facility] 02-26-2024 Functional Status Independent [facility] 02-02-2024 Functional Status Resting [facility] 11-22-2023 Functional Status Lunch [address] 11-22-2023 Functional Status Room check performed [facility] 11-22-2023 Functional Status [facility] 11-22-2023 Functional Status Sequential Com pression Device bilateral knee high applied/on [facility] 11-22-2023 Functional Status [facility] 11-22-2023 Functional Status [facility] 11-21-2023 Functional Status [facility] 11-21-2023 Functional Status Sar[facility] 11-21-2023 Functional Status [facility] 11-21-2023 Functional Status [facility] 11-20-2023 Functional Status Hospital bed [facility] 11-20-2023 Functional Status [facility] 11-20-2023 Functional Status [facility] 11-20-2023 Functional Status Multilevel home [facility] 11-18-2023 Functional Status [facility] 11-18-2023 Functional Status [facility] 11-18-2023 Functional Status Sensory Deficits None A [facility] 11-17-2023 Functional Status Awake, Resting [facility] 11-02-2023 Functional Status Activity Statu s ADL Awake, Watching TV [facility] 11-02-2023 Functional Status Sarwat Lynn [facility] 11-02-2023 Functional Status Sarwat Lynn [facility] 11-02-2023 Functional Status Room check performed [facility] 11-02-2023 Functional Status Demonstrates C orrect Call Light Use Yes [facility] 11-02-2023 Functional Status Sarwat Lynn [facility] 11-01-2023 Functional Status Repositions self [facility] 11-01-2023 Functional Status 7am-7pm Sarwat Lynn [facility] 11-01-2023 Functional Status Sarwat Lynn [facility] 11-01-2023 Functional Status Sarwat Lynn [facility] 11-01-2023 Functional Status Sarwat Lynn [facility] 11-01-2023 Functional Status Sarwat Lynn [facility] 10-31-2023 Functional Status Sarwat Lynn [facility] 10-31-2023 Functional Status Sarwat Lynn [facility] 10-31-2023 Functional Status Sarwat Lynn [facility] 10-31-2023 Functional Status 1st floor bedr oom, 1st floor bathroom [facility] 10-31-2023 Functional Status Sarwat Lynn [facility] 10-31-2023 Functional Status Sensory Deficits None A [facility] 09-25-2023 Functional Status Activity Sabrina tance Independent [facility] 09-24-2023 Functional Status Standard Safet y ID band on, Allergy Band on, Call device within reach, Bed in low position, Wheels locked, Upper/Half-Length side-rails up, Phone within reach, personal items within reach, Visitor at bedside, Safety level maintained [facility] 07-20-2023 Functional Status Independent Sarwat Lynn [facility] 07-19-2023 Functional Status Independent Sarwat Lynn [facility] 07-15-2023 Functional Status Independent Sarwat Lynn [facility] 07-15-2023 Functional Status Identified as high risk, Fall ID band on [facility] 06-07-2023 Functional Status Independent Sarwat Lynn [facility] 02-25-2023 Functional Status Room check performed [facility] 02-25-2023 Functional Status Sarwat Lynn [facility] 02-25-2023 Functional Status Sarwat Lynn [facility] 02-25-2023 Functional Status Refused Sarwat Lynn [facility] 02-25-2023 Functional Status Repositions self [facility] 02-25-2023 [facility] Functional Status Sarwat Lynn [facility] 02-24-2023 Functional Status Sarwat Lynn [facility] 02-24-2023 Functional Status Sarwat Lynn [facility] 02-24-2023 Functional Status Sarwat Lynn [facility] 02-24-2023 Functional Status Sarwat blanca [facility] 02-24-2023 Functional Status Sarwat blanca [facility] 02-23-2023 Functional Status Sarwat blanca [facility] 02-23-2023 Functional Status Sarwat blanca [facility] 02-23-2023 Functional Status Patient refused [facility] 02-23-2023 Functional Status Sarwat blanca [facility] 02-22-2023 Functional Status Sarwat blanca [facility] 02-22-2023 Functional Status Independent Sarwat Lynn [facility] 02-22-2023 Functional Status Ambulation Amb ulation in Room, Up with assistance [facility] 02-22-2023 Functional Status Multilevel elisa e, 1st floor bedroom [facility] 02-22-2023 Functional Status Sensory Deficits None A [facility] 02-21-2023 Functional Status Independent Sarwat [facility] 12-26-2022 Are you deaf, or do you have serious difficulty hearing No 12/26/2022 2:43 PM Blaire Benton RN [facility] 12-26-2022 Are you blind, or do you have serious difficulty seeing, even when wearing glasses No 12/26/2022 2:43 PM Blaire Benton, VERNON No [facility] 12-26-2022 Do you have serious difficulty walking or climbing stairs No 12/26/2022 2:43 PM Blaire Benton RN No [facility] 12-26-2022 Do you have difficul ty dressing or bathing No 12/26/2022 2:43 PM Blaire Benton, VERNON No [facility] 12-26-2022 Because of a physica l, mental, or emotional condition, do you have difficulty doing errands alone such as visiting a physician's office or shopping No 12/26/2022 2:43 PM Blaire Benton RN No [facility] 12-10-2022 Functional Status Assistive Device None A [facility] 12-10-2022 Functional Status Standard Safet y ID band on, Allergy Band on, Call device within reach, Bed in low position, Wheels locked, Upper/Half-Length side-rails up, Safety level maintained [facility] 11-22-2022 Functional Status Assistive Device None A [facility] 07-18-2022 Functional status Activity Abili ty With Assist of 1 [facility] Work Phone: 07-18-2022 Functional status Patient Activity Ambula velvet [facility] Work Phone: 07-04-2022 Functional Status Independent [facility] 07-03-2022 Functional Status Standard Safet y ID band on, Allergy Band on, Call device within reach, Bed in low position, Wheels locked, Upper/Half-Length side-rails up, Phone within reach, personal items within reach, Bedside Cart Locked, Visitor at bedside [facility] 06-05-2022 Functional Status Standard Safet y Safety level maintained [facility] 06-05-2022 Functional Status bilateral knee high [facility] 06-05-2022 Functional Status Room check performed [facility] 06-05-2022 Functional Status [facility] 06-05-2022 Functional Status [facility] 06-05-2022 Functional Status Steady without support [facility] 04-27-2022 Functional Status Room check performed [facility] 04-27-2022 Functional Status 90 [facility] 04-27-2022 Functional Status [facility] 04-26-2022 Functional Status Demonstrates C orrect Call Light Use Yes [facility] 04-25-2022 Functional Status Home managemen t, Housework, Laundry, Meal preparation, Personal ADL [facility] 04-25-2022 Functional Status [facility] 04-24-2022 Functional Status Dinner Percent 0 [facility] 04-24-2022 Functional Status Sarwat [facility] 04-24-2022 Functional Status Setup Sarwat [facility] 04-24-2022 Functional Status Sensory Deficits None A [facility] 04-24-2022 Functional Status Assistive Tara ce Wheelchair [facility] 03-22-2022 Functional Status Independent Sarwat [facility] 02-15-2022 Functional Status Independent Sarwat [facility] 11-22-2021 Functional status Ambulates [facility] Work Phone: Mental Status Date Assessment Result Facility 08-16-2024 Cognitive function Voice/Name [facility] Work Phone: 08-15-2024 Cognitive function Cooperative [facility] Work Phone: 07-11-2024 Cognitive function Voice/Name [facility] Work Phone: 06-02-2024 Mental Status Orientation Oriented x 4 [facility] 06-02-2024 Mental Status [facility] 04-07-2024 Mental Status Orientation Oriented x 4 [facility] 04-06-2024 Mental Status [facility] 02-25-2024 Mental Status Oriented x 4 [facility] 02-02-2024 Mental Status Orientation Oriented x 4 [facility] 11-22-2023 Mental Status Orientation Oriented x 4 [facility] 11-21-2023 Mental Status [facility] 11-21-2023 Mental Status [facility] 11-19-2023 Mental Status Orientation Asse ssment Oriented x 4 [facility] 11-19-2023 Mental Status [facility] 11-19-2023 Mental Status [facility] 11-17-2023 Mental Status Orientation Oriented x 4 [facility] 11-02-2023 Mental Status Orientation Oriented x 4 [facility] 11-02-2023 [facility]-02-[facility]23 [facility] 11-01-2023 Mental Status [facility] 09-25-2023 Mental Status Orientation Oriented x 4 [facility] 09-24-2023 [facility] 07-20-2023 Mental Status Orientation Oriented x 4 [facility] 07-19-2023 Mental Status [facility] 07-15-2023 Mental Status Orientation Oriented x 4 [facility] 07-15-2023 Mental Status [facility] 06-07-2023 Mental Status Orientation Oriented x 4 [facility] 06-07-2023 Mental Status [facility] 02-25-2023 Mental Status Orientation Orie nted x 4, Follows simple commands [facility] 02-24-2023 Mental Status [facility] 02-24-2023 Mental Status [facility] 02-23-2023 Mental Status [facility] 02-23-2023 Mental Status [facility] 02-02-2023 Cognitive function Level Of Cons ciousness Awake;Alert;Appropriate;Fol lows Commands [facility] Work Phone: 01-04-2023 Cognitive function Awake;Alert;A ppropriate;Fol lows Commands [facility] Work Phone: 12-26-2022 Because of a physica l, mental, or emotional condition, do you have serious difficulty concentrating, remembering, or making decisions No 12/26/2022 2:43 PM Blaire Benton, VERNON No [facility] 12-10-2022 Mental Status Orientation Oriented x 4 [facility] 12-10-2022 Mental Status [facility] 11-22-2022 Mental Status Orientation Oriented x 4 [facility] 07-18-2022 Cognitive function Voice/Name [facility] Work Phone: 07-13-2022 Cognitive function Level Of Cons ciousness Awake;Alert;Appropriate;Fol lows Commands [facility] Work Phone: 07-04-2022 Mental Status Orientation Oriented x 4 [facility] 07-03-2022 Mental Status [facility] 06-05-2022 Mental Status Oriented x 4 [facility] 06-05-2022 Mental Status [facility] 06-04-2022 Mental Status [facility] 04-27-2022 Mental Status Oriented x 4 [facility] 04-27-2022 Mental Status [facility] 04-26-2022 Mental Status [facility] 03-22-2022 Mental Status Orientation Oriented x 4 [facility] 03-22-2022 Cognitive function Level Of Cons ciousness Awake;Alert;Appropriate;Fol lows Commands [facility] Work Phone: 02-15-2022 Mental Status Orientation Oriented x 4 [facility] 11-21-2021 Cognitive function Appropriate;Cooperativ e [facility] Work Phone: 11-20-2021 Cognitive function Level Of Cons ciousness Awake;Follows Commands [facility] Work Phone: 11-15-2021 Cognitive function Level Of Cons ciousness Awake;Alert;Appropriate;Fol lows Commands [facility] Work Phone: Clinical Notes 10-18-2016 to 11-19-2024 Nasrin Moreno MA - 11/19/2024 8:23 AM EDTTelephone Encounter - Naty Haddad LPN - 2024 8:03 AM EDTTelephone Encounter - Naty Haddad LPN - 2024 8:03 AM EDT Note Date & Type Note Facility 11-19-2024 History of Presen t illness Narrative POPULATION HEALTH NAVIGATION OUTREACH Action/FYI Contacted patient to schedule HCC care gaps and health maintenance. 1st attempt: Left message with my direct number 2nd attempt: My Chart message sent Topic Due (Y or N) Comments Annual Wellness Exam Yes PCP Follow up No Colorectal Cancer Screening No A1C No HTN/Controlling BP No HCC Yes Updated appointment notes No Reason for Outreach Care Gap/HCC or Scheduling Wellness Visits Care Gaps due: Medicare Annual Wellness Visit Patient Contacted: Unable or unnecessary to reach patient: Left message MyChart message sent HCC related Navigation Signature: Nasrin Moreno MA November 19, 2024 8:23 AM documented in this encounter [facility] 2024 Telephone encount er Note Called patient. No answer- left message to check her MyChart. Naty Haddad LPN [facility] 2024 Miscellaneous Notes Formattin g of this note might be different from the original. Called patient. No answer- left message to check her MyChart. Naty Haddad LPN documented in this encounter [facility] 10-14-2024 History of Presen t illness Narrative POPULATION HEALTH NAVIGATION OUTREACH Action/FYI Contacted patient to schedule HCC care gaps and health maintenance. 1st attempt: Left message with my direct number 2nd attempt: My Chart message sent Topic Due (Y or N) Comments Annual Wellness Exam Yes PCP Follow up No Colorectal Cancer Screening No A1C No HTN/Controlling BP Yes HCC Yes Updated appointment notes No Reason for Outreach Care Gap/HCC or Scheduling Wellness Visits Care Gaps due: Medicare Annual Wellness Visit Controlling Blood Pressure Patient Contacted: Unable or unnecessary to reach patient: Left message MyChart message sent HCC related Navigation Signature: Nasrin Moreno MA October 14, 2024 8:50 AM documented in this encounter [facility] 10-08-2024 History of Presen t illness Narrative CC Supra pubic catheter in Place HPI: Debby Bailon is a 43 year old female. The patient is here now for a supra pubic catheter change with diagnosis neurogenic bladder. Procedure: Performed a catheter change. The indwelling supra pubic cook size 16 Fr (off white/tellow colored) was removed with no resistance- catheter tip intact Inserted 16 Fr catheter using aseptic technique. Irrigated with 60 mL 0.9% sodium chloride. Approximately 60 mLslight yellow return noted throughout. Bulb inflated with 10 mLs prefilled syringes- sterile water. T-Sponge applied to SPT base per patient preference attached to drainage bag. The patient tolerated the procedure well. Patient does not like tubing secured. Assessment/Plan: Successful catheter change. Return for catheter changes as planned. Naty Haddad LPN documented in this encounter [facility] 08-16-2024 Discharge summary Note Date/Time August 16, 2024 2:57pm [facility] Medical Records Department [address] [place] [address] Transfer to [facility] MR#: [id number] Acct: [id number] Name: DEBBY BAILON Rep #:[id number] : 1980 43 From: Quynh Boyer DO PCP: Dr. Will Brannon MD Status:ADM IN Certification of patient admission REQUIRED AT TIME OF ADMISSION. I CERTIFY THAT POST-HOSPITAL ECF SERVICES ARE REQUIRED TO BE GIVEN ON AN IN-PATIENT BASIS BECAUSE OF THE ABOVE NAMED PATIENT'S NEED FOR LONGTERM CARE ON A CONTINUING BASIS FOR THE CONDITION(S) FOR WHICH HE/SHE WAS RECEIVING IN-PATIENT HOSPITAL SERVICES PRIOR TO HIS/HER TRANSFER TO THE [facility]. 08/16/24 9797<Electronically signed by Quynh Boyer DO> Diet Diet Order/Speech Therapy: 08/16/24 12:27 Diet: Carbohydrate Controlled Dietary Modifications:: Consistent Carbohydrate Type of Dietary Supplement:: Ty Diet Comments: Patient does not receive oral diet while on insulin infusion Routine Orders/Code Status Code Status: Full Code DC O2, CPAP, BIPAP needs Home O2 Discharge instructions: No Wound(s) LEFT LOWER LEG: Wound Type: Surgical Incision Left Heel: Wound Type: neuropathic wound s/p I&D Dressing Change: betadine gauze Therapies Weight Bearing: Non weight bearing (left foot) Physical Therapy: Eval and Treat Occupational Therapy: Eval and Treat Problem/Diagnosis (1) Non-pressure chronic ulcer of other part of left foot with necrosis of muscle: Status: Chronic Code(s): L97.523 - Non-pressure chronic ulcer of other part of left foot with necrosis ofmuscle (2) Type 2 diabetes mellitus with foot ulcer: Status: Acute Code(s): E11.621 - Type 2 diabetes mellitus with foot ulcer; L97.509 - Non-pressure chronic ulcer of other part of unspecified foot with unspecified severity (3) Cutaneous abscess of left foot: Status: Acute Code(s): L02.612 - Cutaneous abscess of left foot Plan 1. Sepsis secondary to left lower extremity cellulitis/left heel abscess-patient will remain on her current antibiotic coverage per infectious diseases-Flagyl, Zyvox #2 left heel abscess-patient is being seen by podiatry and may require further surgery on the left foot 08/16/2024 #3 type 2 aadwjjzl-elodvaypzbdk-xecsvhp's blood sugars will be monitored, sliding scale insulin will be administered #4 class III obesity-complicates care, management, recovery, and prognosis #5 Central hypertension-patient will remain on her current medications for bloodpressure, blood pressure medications will be adjusted as needed Total clinical time spent by myself addressing the patient's medical issues, reviewing all of her data, and collaborating with the patient's care team: 35 minutes Allergies/Procedures Done in Hospital Allergies Cephalosporins Allergy (Severe, Verified 08/12/24 00:44) Anaphylaxis piperacillin (From Zosyn) Allergy (Intermediate, Verified 08/12/24 00:44) Hives Hives and itching ceftriaxone (From Rocephin) Allergy (Verified 08/12/24 00:44) Anaphylaxis mushroom Allergy (Verified 08/12/24 00:44) Anaphylaxis peanut Allergy (Verified 08/12/24 00:44) Anaphylaxis tazobactam (From Zosyn) Allergy (Verified 08/12/24 00:44) NEEDS FOLLOW-UP fentanyl Adverse Reaction (Verified 08/12/24 00:44) Low blood pressure decreased breathing was on a vent gabapentin Adverse Reaction (Verified 08/12/24 00:44) Other 'psychotic rage' Gadolinium-MRI Contrast Medium Adverse Reaction (Verified 08/12/24 00:44) Vomiting Latex, Natural Rubber Adverse Reaction (Verified 08/12/24 00:44) Rash vancomycin Adverse Reaction (Verified 08/12/24 00:44) Rash [employer] Procedures: - (Complex incision and drainage left foot-08/12/2024) Type of Care/Length of Stay Estimated LOS: Convalescent Care Less Than 30 days Type of Care Needed: Skilled Rehab Potential: Good Prognosis: Good Additional Orders/Day of Discharge H&P will serve as current which was dated: 08/11/24 Day of Discharge: 08/16/24 Dietary and Speech Recommendations Dietitian Recommendations/Changes: Continue Consistent CHO/ Cardiac to help manage pt medical conditions Discharge Plan Admission Admit Date/Time: 08/11/24 22:51 Primary Reason for Your Visit: Abscess left heel Attending Provider: Quynh Boyer Primary Care Provider: Will Brannon Consulting Providers: Ramana Rose; Bev Ngo; Garcia Gonzalez Discharge Orders/Prescriptions Prescriptions: New cholecalciferol (vitamin D3) 125 mcg (5,000 unit) Capsule 125 mcg PO DAILY Qty: 0 0RF enoxaparin 40 mg/0.4 mL Syringe 40 mg subcut BID Qty: 0 0RF insulin lispro [Humalog KwikPen Insulin] 100 unit/mL Insulin Pen 12 unit subcut TIDCM Qty: 0 0RF insulin lispro [Humalog KwikPen Insulin] 100 unit/mL Insulin Pen See Protocol subcut TIDCM Qty: 0 0RF Protocol: 3. Sliding Scale Insulin Med Dosing Condition: 150-189 mg/dl = 1 unit Condition: 190-229 mg/dl = 2 units Condition: 230-269 mg/dl = 3 units Condition: 270-309 mg/dl = 4 units Condition: 310-349 mg/dl = 5 units Condition: 350-399 mg/dl = 6 units Condition: 400-449 mg/dl = 7 units Condition: Greater than 449 call physician Protocol Text: Suggested for: - Patients on Total Daily Insulin Dose of 37-55 units - Obese, infected, or steroid patients MEDIUM DOSING ALGORITHIM insulin glargine-yfgn 100 unit/mL (3 mL) Insulin Pen 30 unit subcut QHS Qty: 1 0RF metronidazole 500 mg Tablet 500 mg PO TID Qty: 22 0RF Rx Instructions: Give 22 doses starting the evening of 08/16/2024 linezolid 600 mg Tablet 600 mg PO BID Qty: 0 0RF Rx Instructions: Give 15 doses starting the evening of 08/16/2024 oxycodone 5 mg Tablet 5 mg PO Q4H PRN PRN (Reason: Pain Score 1-10) 3 Days Qty: 10 0RF pregabalin 75 mg Capsule 75 mg PO BID Qty: 6 0RF Continued atorvastatin 80 mg tablet 80 mg PO DAILY Patient Comments: Take 1 tablet by mouth once daily. (DME) pen needle, diabetic [BD Ultra-Fine Hope Pen Needle] 32 gauge x 5/32 needle See Rx Instructions .ROUTE .MEDSUPPLY Qty: 400 6RF Rx Instructions: 4x/day (DME) pen needle, diabetic [BD Ultra-Fine Hope Pen Needle] 32 gauge x 5/32 needle See Rx Instructions .ROUTE .MEDSUPPLY Qty: 350 1RF Rx Instructions: 4 times daily furosemide 20 MG tablet 20 mg PO 2200 Rx Instructions: 20 mg in the evening furosemide 40 MG tablet 40 mg PO BREAKFAST oxybutynin chloride 15 mg tablet extended release 24hr 15 mg PO DAILY acetaminophen 500 MG tablet 1,000 mg PO TID PRN PRN (Reason: Pain Or Fever) trazodone 100 mg tablet 100 mg PO QHS Patient Comments: Take 1 tablet by mouth daily at bedtime. lisinopril 5 mg tablet 2.5 mg PO DAILY Qty: 90 3RF Rx Instructions: Hold for SBP less than 130 mmHg ondansetron 4 mg tablet,disintegrating 4 mg PO Q8H PRN PRN (Reason: Nausea) Qty: 20 0RF promethazine 25 mg tablet 25 mg PO TID PRN (Reason: nausea and vomiting) Qty: 20 0RF divalproex 500 mg tablet,delayed release (DR/EC) 500 mg PO QHS omeprazole 20 mg capsule,delayed release(DR/EC) 20 mg PO DAILY propranolol 20 mg tablet 20 mg PO BID loratadine [Allergy Relief (loratadine)] 10 mg tablet 10 mg PO DAILY Discontinued insulin glargine [Lantus Solostar U-100 Insulin] 100 unit/mL (3 mL) insulin pen 40 unit SC QHS pregabalin 75 mg capsule 75 mg PO BID Fiasp FlexTouch U-100 Insulin 100 unit/mL (3 mL) insulin pen See Rx Instructions subcut TID Rx Instructions: Inject 20 units with meals (three times daily) PLUS SS#2 (2 units for every 50 over 150 PRE MEAL blood sugar) TDD90 units daily Referrals / Follow Up: Will Brannon MD [Primary Care Provider] - Garcia Gonzalez DPM [Med Staff - Active Staff] - In 1 Week (Call office for appointment) Disposition Disposition (needs filled in before D/C Order can be placed): [facility] (2) Type 2 diabetes mellitus with foot ulcer Qualifiers: 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 Ramana Rose DO; Dr. Will Brannon MD; Dr. Bev Ngo MD ~ [facility] Work Phone: 1(108) 825-558103-21-2025 History of Present illness Narrative* Josesito Verdin LPN - 08/16/2024 2:22 PM EDT Scan on 08/16/2024 11:48 AM by Provider, CAMDEN Navarro: [facility] Consult note Author Luis Miguel Boateng [facility] Note Date/Time August 16, 2024 11: 26am [facility] Medical Records Department [address] [place] [address] [place] [address] Anesthesia Postop Eval I 08/16/24 1125 MR#: [id number] Acct: [id number] Name: DEBBY BAILON Rep #:[id number] : 1980 43 From: Luis Miguel Boateng CRNA PCP: Dr. Will Brannon MD Status:ADM IN Y Race: C Location: [place] [address] Anesthesia: Postop Eval I Current Vital Signs Temperature: 97.6 F Pulse Rate: 86 Blood Pressure: 131/71 Respiratory Rate: 20 Pulse Ox: 93 Oxygen Delivery Method: Room Air Assessment Airway patent: Yes Spontaneous unlabored respirations: Yes Mental status: Awake and Calm nausea: No Vomiting: No Anesthesia Complication: No Fluid Hydration Crystalloid volume administer (ml): 700 Total IV fluid infused: 700 Progress Note Anesthesia document: Postop Eval 1 completed: Yes 08/16/24 1126 <Electronically signed by Luis Miguel dunham CRNA> Date _ Luis Miguel Boateng CRNA Cosigner Signature: Date CC: ~ Signed [facility] Work Phone: 1(289) 615-735303-21-2025 Progress note Author Garcia Gonzalez [facility] Note Date/Time August 16, 2024 11: 23am [facility] Medical Records Department [address] [place] [address] Progress Note - Surgery 08/16/24 0650 MR#: [id number] Acct: [id number] Name: DEBBY BAILON Rep #:[id number] : 1980 43 From: Garcia GREEN PCP: Dr. Will Brannon MD Status:ADM IN Location: [place] [address] Subjective Subjective Patient was seen at bedside today following surgery of this morning. Patient was resting comfortably with no pain to left lower extremity. She denies any overnight events or constitutional symptoms at this time. No pain to left lowerextremity. Dressing was on clean dry and intact. No other pedal complaints at this time. Objective Data Objective Data Vital Signs: Vital Signs Temp Pulse Resp BP Pulse Ox O2 Del Method O2 Flow Rate 98 F 70 16 98/64 96 Room Air 2 08/16/24 04:12 08/16/24 04:12 08/16/24 04:12 08/16/24 04:12 08/16/24 04:12 08/16/24 04:12 08/12/24 17:05 Oxygen Flow Rate (L/min) 2 Oxygen Delivery Method Room Air Weight: 107.2 kg Body Mass Index (BMI) 44.6 Intake & Output: Intake and Output for Last 24 Hours 08/14/24 08/15/24 08/16/24 23:59 23:59 23:59 Intake Total 2201 / 2201 1299.25 / 1299.25 188.75 / 188.75 Output Total 3750 / 3750 2150 / 2150 600 / 600 Balance -1549 / -1549 -850.75 / -850.75 -411.25 / -411.25 Lab / Micro Data 08/15/24 05:12 08/15/24 05:12 Labs: Laboratory Results - last 24 hr 08/15/24 05:12: Absolute Neuts (auto) 5.2, Absolute Lymphs (auto) 3.76, Total Counted 100, Neutrophils % (Manual) 50, Lymphocytes % (Manual) 36, Monocytes % (Manual) 9, Eosinophils % (Manual) 1, Metamyelocytes % 2 H, Myelocytes % 2 H, Diff Path Review May foll, Atypical Lymphocytes 2+ 08/15/24 11:30: POC Glucose 152 H 08/15/24 16:11: POC Glucose 96 08/15/24 21:41: POC Glucose 133 H 08/16/24 02:09: POC Glucose 160 H Micro: Microbiology 08/12/24 Unknown Tissue - Left Foot Gram Stain - Final 08/12/24 Unknown Tissue - Left Foot Wound Culture - Preliminary Staphylococcus aureus Streptococcus group A GPC Poss Enterococcus sp Gram positive sue 08/12/24 Unknown Tissue - Left Foot Anaerobic Culture - Final No anaerobic bacteria isolated. 08/12/24 Unknown Tissue - Left Foot Gram Stain - Final 08/12/24 Unknown Tissue - Left Foot Wound Culture - Preliminary Staphylococcus aureus Gram Positive Cocci 08/12/24 Unknown Tissue - Left Foot Anaerobic Culture - Final No anaerobic bacteria isolated. 08/11/24 22:19 Blood Culture (Wb) - Left Forearm Blood Culture - Preliminary No growth in 48 hours. 08/11/24 21:39 Blood Culture (Wb) - Anticubital Left Blood Culture - Preliminary No growth in 48 hours. 08/12/24 01:35 Nasal Secretion MRSA (PCR) - Final Physical Exam Narrative Neurovascular status is unchanged. Nonpitting edema appreciated to the distal and proximal aspect of the left lower extremity dressing. No pain to palpation over the open wound to the left heel. No pain with calf pressure. Const oriented x3 and no apparent distress Assessment & Plan Assessment/Plan (1) Non-pressure chronic ulcer of other part of left foot with necrosis of muscle: PLAN: Patient was examined and evaluated. All findings were discussed with the patient. All questions were answered to the patient satisfaction. Patient was seen at bedside today for surgical discussion with all risk and benefits discussed with the patient in great detail. Educated the patient on the surgical and postoperative plan which she was understanding of. The patientwill be going to a SNF for continued rehab as well as to help lower her A1c. I educated the patient that I cannot move forward with the tendon transfer surgerythat her left lower extremity needs if her A1c is above 9% which she will work to get that down as an outpatient. Plan for surgery today will be delayed primary closure of the full-thickness wound to the left heel. Patient understands risk and benefits. Culture: Prelavage: Staph aureus, gram-positive cocci Culture: Post lavage:Staph aureus, strep group A, GPC Enterococcus, gram- positive sue WBC: 23.4 -> 18.2 -> 10.5 Glu: 160 Medicine: On board, medical management Infectious disease: On board, IV antibiotics linezolid, cefepime, Flagyl Once the patient has completed her delayed primary closure to the left heel the patient can be cleared for discharge from podiatry perspective once cleared by medicine and infectious disease team. The patient will follow-up in private office for review of surgical site and dressing change in 1 week to 10 days. There will be no need for dressing changes until the first postoperative visit. The dressing can be left clean dry and intact. Dressing change orders will be given once the patient follows up in clinic. Please reach out to Dr. Gonzalez for any question or concerns. Thank you for letting me be involved in the patient care (2) Type 2 diabetes mellitus with foot ulcer: QUALIFIERS: Diabetes mellitus long-term insulin use: with long-term use Qualified Code(s): E11.621 - Type 2 diabetes mellitus with foot ulcer;L97.509 - Non- pressure chronic ulcer of other part of unspecified foot with unspecified severity; Z79.4 - custodial (current) use of insulin (3) Cutaneous abscess of left foot: 08/16/24 1123 <Electronically signed by Garcia Gonzalez DPBayron> Cosigner Signature (if applicable): CC: ~ Signed [facility] Work Phone: 1(246) 571-961103-21-2025 Progress note Author Quynh [facility]w [facility] Note Date/Time August 16, 2024 6:3 7pm [facility] Medical Records Department [address] [place] [address] Progress Note - Hospitalist 08/16/24 1021 MR#: [id number] Acct: [id number] Name: DEBBY BAILON Rep #:[id number] : 1980 43 From: Quynh Boyer DO PCP: Dr. Will Brannon MD Status:ADM IN Location: [place] [address] Hospitalist Note I talked to infectious diseases today, they stated that the patient could go to the half-way today after her surgery, she would need to continue Zyvox 600 mg twice daily for 1 week and Flagyl 500 mg 3 times daily for 1 week. 08/16/24 1021 <Electronically signed by Quynh Boyer DO> Cosigner Signature (if applicable): CC: ~ Signed [facility] Work Phone: [phone] Procedure [facility] 08-16-2024 Consult note Author Isaías Huitron [facility] Note Date/Time August 16, 2024 8:4 4am [facility] Medical Records Department [address] [place] [address] Pre-Anesthesia Evaluation 08/16/24 0842 MR#: [id number] Acct: [id number] Name: DEBBY BAILON Rep #:[id number] : 1980 43 From: Isaías domingo MD PCP: Dr. Will Brannon MD Status:ADM IN Y Race: C Location: MS3 [id number] -[id number] ASA Classification* ASA Classification ASA Classification: 3 Assessment & Plan Anesthesia* Anesthesia Assessment Anesthesia Assessment: Discussed sedation and/or anesthesia options, risks, benefits, and alternatives with patient/parents/legal guardian/POA. Questions invited. The patient/parents/legal guardian/POA seems to understand and agrees to proceedwith anesthesia plan. Reviewed the physical assessment, medical history, allergy history and patient home medications list prior to surgery/procedure/anesthetic and documented any changes. Performed airway and anesthesia risk assessments. Anesthesia Type Anesthesia Type: General History Source History Obtained from:: Patient and Chart Anesthesia Focused Assessment* Temperature: 97.7 F Pulse Rate: 68 Blood Pressure: 126/66 Respiratory Rate: 17 Pulse Ox: 97 Oxygen Delivery Method: Room Air Oxygen Flow Rate (L/min): 2 Airway Assessment Mouth opens: 2 cm Mallampati Score: III Teeth Condition: Chipped/Broken (poor dentition) and Missing Neck Range of motion (ROM): Limited ROM Focused Labs Anesthesia Preop lab: CBC WBC 10.5 K/mm3 (4.4-11.0) 08/15/24 05:12 08/15/24 RBC 3.64 M/mm3 (4.2-5.4) L 08/15/24 05:12 08/15/24 Hgb 10.9 g/dL (12.0-15.0) L 08/15/24 05:12 5 Hct 33.5 % (37-47) L 08/15/24 05:12 08/15/24 Plt Count 224 K/mm3 (150-450) 08/15/24 05:12 08/15/24 CHEMISTRY Potassium 3.8 mmol/L (3.3-5.1) 08/15/24 05:12 08/15/24 Sodium 138 mmol/L (133-145) 08/15/24 05:12 08/15/24 Magnesium 1.7 mg/dL (1.5-2.2) 08/11/24 21:39 08/11/24 Phosphorus 2.7 mg/dL (2.7-4.5) 08/13/24 06:43 08/13/24 BUN 17 mg/dL (4-19) 08/15/24 05:12 08/15/24 Creatinine 0.65 mg/dL (0.70-1.20) L 08/15/24 05:12 Glucose 135 mg/dL (70-99) H 08/15/24 05:12 08/15/24 POC Glucose 125 mg/dL (74-106) H 08/16/24 06:40 08/16/24 TSH 1.550 uIU/mL (0.300-4.200) 08/11/24 21:39 07/27 11/20 COAG PT 12.3 SECONDS (11.7-14.9) 07/11/24 17:40 HCG, Quant < 1 mIU/mL (<9 non-preg) 10/24/12 11:05 3 Urine Test Negative Negative 08/12/24 15:12 08/12/24 Pre-Assessment Diagnosis/Proposed Procedure Planned Operative Procedure(s): Irrigation and debridement washout of the left heel abscess. 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 When Was Last Pacemaker Check QUESTION #4 FULL TEXT: You/Your Family Experience fever (hyperthermia) with Anesthesia Last Oral Intake Last Oral intake: Last Oral Intake NPO since 00:00 08/16/24 07:55 Meds taken in AM with sips of No 08/16/24 07:55 water? 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 Has anyone observed you stop Yes 08/11/24 23:02 breathing during sleep? STOP Results Positive 08/12/24 16:52 QUESTION #5 FULL TEXT : Do you snore loudly (louder than talking or can be heard through closed doors)? 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 Specify any problems Hx of Preganancy in last 3 No 08/11/24 23:02 Months Nurse Filling Out Transfusion JSNOW 08/11/24 23:02 & Questions: Date: 08/12/24 08/11/24 23:02 Time: 00:40 08/11/24 23:02 Patient unable to answer at this time (ie. 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 INHALATION Q2H PRN PRN SOB &/OR WHEEZING Ascorbic Acid 1,000 mg 08/12/24 08:00 08/16/24 07:29 Ascorbic Acid 500 Mg Tablet PO Not Given BIDCM MIREYA Atorvastatin Calcium 80 mg 08/12/24 22:00 08/15/24 21:50 Atorvastatin Calcium 80 Mg Tablet PO 80 mg 2200 MIREYA Administration Cholecalciferol 125 mcg 08/12/24 10:00 08/16/24 07:34 Cholecalciferol (Vit D3) 125 Mcg Capsule (5,000 Units) PO Not Given DAILY MIREYA Divalproex Sodium 500 mg 08/12/24 22:00 08/15/24 21:49 Divalproex Sodium 250 Mg Tablet PO 500 mg QHS MIREYA Administration Enoxaparin Sodium 40 mg 08/12/24 00:11 08/16/24 07:30 Enoxaparin 40 Mg/0.4 Ml Syringe SC Not Given BID MIREYA Glucagon 1 mg 08/12/24 00:11 Glucagon 1 Mg/Ml Syringe IM X1 PRN HYPOGLYCEMIA Protocol Sodium Chloride 100 mls @ 15 mls/hr 08/12/24 00:12 08/16/24 08:11 IV 0 mls/hr .Q6H40M PRN Infusion Saline Flush Sodium Chloride 100 mls @ 15 mls/hr 08/12/24 00:12 IV .Q6H40M PRN Additional IVPB Infusion Cefepime HCl 2 gm/ Sodium 100 mls @ 200 mls/hr 08/12/24 09:35 08/16/24 05:47 Chloride IV Infused Q8 [facility] Infusion Insulin Glargine 30 unit 08/12/24 00:11 08/15/24 21:47 Insulin Glargine-Yfgn 100 Unit/Ml Pen SC 15 unit QHS [facility] Administration Insulin Human Lispro 12 unit 08/12/24 08:00 08/16/24 07:27 Insulin Lispro 100 Unit/Ml Insuln.Pen SC Not Given TIDCM [facility] Insulin Human Lispro 0 unit 08/12/24 08:00 08/16/24 07:28 Insulin Lispro 100 Unit/Ml Insuln.Pen SC Not Given TIDCM [facility] Protocol Linezolid 600 mg 08/15/24 10:00 08/16/24 07:34 Linezolid 600 Mg Tablet PO Not Given BID [facility] Loratadine 10 mg 08/12/24 10:00 08/16/24 07:30 Loratadine 10 Mg Tablet PO Not Given DAILY [facility] Magnesium Hydroxide 30 ml 08/12/24 00:11 Magnesium Hydroxide 30 Ml Udc PO DAILY PRN PRN Constipation Melatonin 3 mg 08/12/24 00:11 Melatonin 3 Mg Tablet PO QHS PRN PRN INSOMNIA Metronidazole 500 mg 08/12/24 09:45 08/16/24 04:14 Metronidazole 500 Mg Tablet PO 500 mg TID [facility] Administration Morphine Sulfate 2 mg 08/12/24 00:11 08/13/24 09:19 Morphine 2 Mg/Ml Syringe IV 2 mg Q4H PRN PRN Administration Pain Score 6-10 Ondansetron HCl 4 mg 08/12/24 00:11 08/12/24 09:03 Ondansetron 4 Mg/2 Ml Vial IV 4 mg Q4H PRN PRN Administration NAUSEA/VOMITING Oxycodone HCl 5 mg 08/13/24 13:44 08/14/24 22:10 Oxycodone 5 Mg Tablet PO 5 mg Q4H PRN PRN Administration Pain Score 1-10 Pantoprazole Sodium 20 mg 08/12/24 10:00 08/16/24 07:31 Pantoprazole Sodium 20 Mg Tablet PO Not Given DAILY [facility] Pregabalin 75 mg 08/12/24 10:00 08/16/24 07:41 Pregabalin 75 Mg Capsule PO Not Given BID [facility] Sodium Chloride 10 - 40 ml 08/12/24 00:12 08/15/24 21:42 0.9% Saline Lock 10 Ml Syringe IV 10 ml UD PRN Administration SALINE FLUSH Tolterodine Tartrate 4 mg 08/12/24 10:00 08/16/24 07:30 Tolterodine Tartrate 4 Mg Cap.Sa PO Not Given DAILY MIREYA Trazodone HCl 100 mg 08/12/24 22:00 08/15/24 21:50 Trazodone 100 Mg Tablet PO 100 mg QHS MIREYA Administration Zinc Sulfate 50 mg 08/12/24 00:11 08/16/24 07:34 Zinc Sulfate 50 Mg Zinc (220 Mg) Oral Capsule PO Not Given DAILY MIREYA PFSH Medical History Type 2 diabetes mellitus with foot ulcer Suprapubic catheter Noncompliance with diabetes treatment Diabetes mellitus with diabetic polyneuropathy Depression Open wound of left foot Microalbuminuria CKD (chronic kidney disease) 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 Diabetic polyneuropathy Non-smoker Weakness Hyperglycemia Sepsis Urinary tract infection Diabetic foot infection Urinary tract infection Thyroid cyst Hematochezia Chronic nausea Insomnia PSVT (paroxysmal supraventricular tachycardia) Panic attacks Hyperlipidemia Lipomeningocele History of kidney stones Essential hypertension Dysthymic disorder DJD (degenerative joint disease) of thoracic spine Arthritis Anxiety and depression Uninodular goiter Non-compliance UTI (urinary tract infection) Cellulitis of left lower extremity Infection of bladder catheter Ulcer of left heel and midfoot with fat layer exposed Lower extremity edema Delayed wound healing Type 2 diabetes mellitus with diabetic polyneuropathy Diabetic ulcer of left heel with fat layer exposed Normochromic normocytic anemia Constipation Neurogenic bowel Neurogenic bladder Hydronephrosis of right kidney UTI (urinary tract infection) Diabetes mellitus, type II Morbid obesity with BMI of 40.0-44.9, adult Spina bifida aperta of lumbar spine History of migraine Chronic back pain Home Medications ?Medication ?Instructions ?Recorded ?Last Taken ?Type furosemide 20 mg tablet 20 mg PO 2200 fluid 08/28/18 08/10/24 History furosemide 40 mg tablet 40 mg PO BREAKFAST fluid 01/1408/10/24 History oxybutynin chloride 15 mg 15 mg PO DAILY bladder 11/1108/10/24 History tablet,extended release 24 hr acetaminophen 500 mg tablet 1,000 mg PO TID PRN PRN Pa in Or 02/12/20 08/11/24 History Fever trazodone 100 mg tablet 100 mg PO QHS sleep 01/19/21 08/10/24 History atorvastatin 80 mg tablet 80 mg PO DAILY cholesterol 0 01/29/21 08/10/24 History pen needle, diabetic 32 gauge x #400 ea 03/05/21 Unkno wn Rx 532 (BD Ultra-Fine Hope Pen Needle) lisinopril 5 mg tablet 2.5 mg (1/2 x 5 mg) PO DAILY #90 01/21/22 08/10/24 Rx tabs pen needle, diabetic 32 gauge x #350 ea 09/01/22 Unkno wn Rx (BD Ultra-Fine Hope Pen Needle) loratadine 10 mg tablet (Allergy 10 mg PO DAILY Antigi stamine 11/07/23 08/10/24 History Relief (loratadine)) propranolol 20 mg tablet 20 mg PO BID Beta Pan 08/10/24 History insulin aspart See Rx Instructions subcut T ID 02/10/24 08/10/24 History (niacinamide)(U-100) 100 unit/mL(3 Glucose control mL) subcutaneous pen (Fiasp FlexTouch U-100 Insulin) pregabalin 75 mg capsule 75 mg PO BID Diabetic nerve pain 02/10/24 08/10/24 History ondansetron 4 mg disintegrating 4 mg PO Q8H PRN PRN Na usea #20 tabs 06/09/24 08/11/24 Rx tablet promethazine 25 mg tablet 25 mg PO TID PRN nausea and 07/31/24 08/01/24 Rx vomiting #20 tabs divalproex 500 mg tablet,delayed 500 mg PO QHS Migrain e Headaches 08/11/24 08/10/24 History release insulin glargine 100 unit/mL (3 40 unit subcut QHS dm 08/11/24 08/10/24 History mL) subcutaneous pen (Lantus Solostar U-100 Insulin) omeprazole 20 mg capsule,delayed 20 mg PO DAILY PPI 08/10/24 History release Allergy/AdvReac Type Severity Reaction Status Date / Time Cephalosporins Allergy Severe Anaphylaxis Verified 08/12/24 00:44 piperacillin (From Zosyn) Allergy Intermediate Hives Verified 08/12/24 00:44 ceftriaxone (From Rocephin) Allergy Anaphylaxis Verified 08/12/24 00:44 mushroom Allergy Anaphylaxis Verified 08/12/24 00:44 peanut Allergy Anaphylaxis Verified 08/12/24 00:44 tazobactam (From Zosyn) Allergy NEEDS Verified 08/12/24 00:44 FOLLOW-UP fentanyl AdvReac Low blood Verified 08/12/24 00:44 pressure gabapentin AdvReac Other Verified 08/12/24 00:44 Gadolinium-MRI Contrast AdvReac Vomiting Verified 08/12/24 00:44 Medium Latex, Natural Rubber AdvReac Rash Verified 08/12/24 00:44 vancomycin AdvReac Rash Verified 08/12/24 00:44 Family History Mother CVA (cerebral vascular accident) Thyroid disorder Diabetes Hypertension Heart disease Hyperlipidemia Myocardial infarction, Onset Age: 54 mother had diabetes Father Cancer skin Grandmother Cancer liver Other Arthritis Skin cancer Surgical History S/P colostomy S/P thyroid biopsy (~11/06/19) history insertion suprapubic catheter Status post gastric surgery Hx of foot surgery Hx of ventral hernia repair History of spinal surgery History of cholecystectomy History of dilation and curettage Social History household members: significant other Smoking Status: Never smoker alcohol intake: current substance use type: does not use Review of Systems (Anesthesia) ROS Narrative System reviewed and no additional complaints, except as documented. 08/16/24 0844 <Electronically signed by Isaías cantu MD> Date _ Isaías Vargasigner Signature: Date CC: ~ Signed [facility] Work Phone: [phone]) 799-333003-20-2025 Progress note Author Garcia Gonzalez [facility] Note Date/Time August 15, 2024 3:4 2pm [facility] Medical Records Department [address] [place] [address] Progress Note - Surgery 08/13/24 0743 MR#: [id number] Acct: [id number] Name: DEBBY BAILON Rep #:[id number] : 1980 43 From: Garcia Smith PM PCP: Dr. Will Brannon MD Status:ADM IN Location: MS3 NA956-7 Subjective Subjective Ms. Bailon 43-year-old female status post complex send drainage to left heel doing well with surgery. She rates some discomfort to the left heel especially with dressing changes. Denies any constitutional symptoms no acute events overnight. Objective Data Objective Data Vital Signs: Vital Signs Temp Pulse Resp BP Pulse Ox O2 Del Method O2 Flow Rate 97.8 F 65 16 111/70 94 Room Air 2 08/13/24 05:36 08/13/24 05:36 08/13/24 05:36 08/13/24 05:36 08/13/24 05:36 08/13/24 05:36 08/12/24 17:05 Oxygen Flow Rate (L/min) 2 Oxygen Delivery Method Room Air Weight: 101.4 kg Body Mass Index (BMI) 42.2 Intake & Output: Intake and Output for Last 24 Hours 08/11/24 08/12/24 08/13/24 23:59 23:59 23:59 Intake Total 1050 / 1050 3750 / 3750 100 / 100 Output Total 2450 / 3950 1999 / 1999 Balance 1050 / 1050 1300 / -200 -1900 / -1900 Lab / Micro Data 08/12/24 05:51 08/12/24 05:51 Labs: Laboratory Results - last 24 hr 08/12/24 05:51: Plt Count 08/12/24 12:17: POC Glucose 185 H 08/12/24 15:12: Urine Test Negative 08/12/24 17:20: ESR 32 H, Hemoglobin A1c 11.8, C-React Prot Ext Range 252.00 H 08/12/24 17:46: POC Glucose 215 H 08/12/24 22:10: POC Glucose 322 H 08/12/24 : S.aureus Protein A PCR POSITIVE H, MRSA (PCR) Negative Micro: Microbiology 08/12/24 01:35 Nasal Secretion MRSA (PCR) - Final Radiography Diagnostic Testing: Radiology Impression Lower Extremity MRI 08/12/24 00:55 IMPRESSION: The previously noted plantar and posterior ulcer over the left heel is again seen, with interval decreased appearance size of the subcutaneous fluid collection. No extension to the subjacent bone is seen. No acute osseous signal changes are seen. No area of abnormal osseous postcontrast enhancement. Normal appearance of the Achilles tendon is seen. No tendon pathology is noted. No joint effusion is evident. No evidence of osteomyelitis. Reading Location: [address] Physical Exam Narrative Vascular: DP and PT pulses are palpable to left lower extremity. Nonpitting edema appreciated left lower extremity. Improved erythema and proximal streaking to left lower extremity. Skin temperature is warm to warm from proximal ankle to distal digits to left lower extremity. Neurological: Light touch intact. Patient does not respond to painful stimuli. Dermatological: Evidence of a surgical incision to the left heel with granular tissue. No drainage. No malodor. Musculoskeletal: No pain to palpation to the full-thickness wound to the left heel. No pain with calf pressure. Const alert, oriented x3 and no apparent distress Assessment & Plan Assessment/Plan (1) Cutaneous abscess of left foot: PLAN: Patient was examined and evaluated. All findings were discussed with the patient. All questions were answered to the patient's satisfaction. MRI (08/12/2024): Show evidence of plantar and posterior ulcer over the left heelwith subcutaneous fluid collection. No evidence of bone destruction or osteomyelitis. Patient is status post complex incision and drainage to left heel. DOS: 08/12/2024. Patient is doing well and rates to some pain with dressing changes but overall has a good prognosis during this hospital visit. Further evaluationof the patient's left lower extremity shows evidence of elongated Achilles tendon secondary to past surgery from outside provider. Patient has a calcanealgait and will require outpatient elective flexor looses longus tendon transfer once A1c gets below 9.0%. Following this should be placed in bilateral solid AFOs. Wound care on board for dressing changes to left lower extremity. Medicine: On board, medical management, IV antibiotics cefepime and Flagyl Infectious disease: Consult pending WBC: 25.7 -> 23.4 Glu: 282 HbA1c: 11.8 ESR: 32 CRP: 252.0 Podiatry will continue to follow the patient while in house. I will plan for delayed primary closure to the left heel versus Monday. Will continue to follow patient while in house. Please reach out to Dr. Gonzalez with any questions or concerns. Thank you for the consultation! 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 of muscle: (4) Type 2 diabetes mellitus with foot ulcer: QUALIFIERS: Diabetes mellitus long-term insulin use: with long-term use Qualified Code(s): E11.621 - Type 2 diabetes mellitus with foot ulcer;L97.509 - Non- pressure chronic ulcer of other part of unspecified foot with unspecified severity; Z79.4 - custodial (current) use of insulin 08/15/24 1542 <Electronically signed by Garcia Gonzalez DPBayron> Cosigner Signature (if applicable): CC: ~ Signed [facility] Work Phone: 1(764) 394-371303-20-2025 Progress note Author Quynh [facility]w [facility] Note Date/Time August 15, 2024 8:2 0[facility] Medical Records Department [address] [place] [id number] Progress Note - Hospitalist 08/15/24 0815 MR#: [id number] Acct: [id number] Name: DEBBY BAILON Rep #:[id number] : 1980 43 From: Quynh Boyer DO PCP: Dr. Will Brannon MD Status:ADM IN Location: [place] [address]-1 Reason for Visit Reason for Visit: Diagnoses Sepsis, unspecified organism (08/11/24) Elevated white blood cell count, unspecified (08/11/24) Type 2 diabetes mellitus with diabetic polyneuropathy (08/11/24) Type 2 diabetes mellitus with foot ulcer (08/11/24) Morbid (severe) obesity due to excess calories (08/11/24) Cutaneous abscess of left foot (08/11/24) Cellulitis of left lower limb (08/11/24) Non-pressure chronic ulcer of other part of unspecified foot with unspecified severity (08/11/24) Non-pressure chronic ulcer of other part of left foot with necrosis of muscle (08/11/24) Fever, unspecified (08/11/24) Resistance to unspecified antibiotic (08/11/24) Body mass index [BMI] 40.0-44.9, adult (08/11/24) custodial (current) use of insulin (08/11/24) Patient's noncompliance with other medical treatment and regimen due to unspecified reason (08/11/24) Subjective Subjective Patient was seen and examined today, he voices no complaints to this examiner. CBC today showed a normal white blood cell count, chemistry profile was unremarkable. Objective Data Objective Data Vital Signs: Vital Signs Temp Pulse Resp BP Pulse Ox O2 Del Method O2 Flow Rate 97.9 F 65 16 110/71 100 Room Air 2 08/15/24 05:39 08/15/24 05:39 08/15/24 05:39 08/15/24 05:39 08/15/24 05:39 08/15/24 05:39 08/12/24 17:05 Oxygen Flow Rate (L/min) 2 Oxygen Delivery Method Room Air Weight: 107.1 kg Body Mass Index (BMI) 44.6 Intake & Output: Intake and Output for Last 24 Hours 08/13/24 08/14/24 08/15/24 23:59 23:59 23:59 Intake Total 1900 / 1900 2201 / 2201 400 / 400 Output Total 3900 / 4600 3750 / 3750 450 / 450 Balance -2000 / -2700 -1549 / -1549 -50 / -50 Lab / Micro Data 08/15/24 05:12 08/15/24 05:12 Labs: Laboratory Results - last 24 hr 08/14/24 08:25: POC Glucose 324 H 08/14/24 12:57: POC Glucose 227 H 08/14/24 16:25: POC Glucose 238 H 08/14/24 22:30: POC Glucose 217 H 08/15/24 05:12: WBC 10.5, RBC 3.64 L, Hgb 10.9 L, Hct 33.5 L, MCV 92.0, MCH 29.9, MCHC 32.5, RDW Std Deviation 45.7 H, RDW Coeff of Claude 13.6, Plt Count 224, MPV 10.7, Neut % (Auto) Not Reportable, Absolute Neuts (auto) 5.2, Absolute Lymphs (auto) 3.76, Total Counted 100, Neutrophils % (Manual) 50, Lymphocytes % (Manual) 36, Monocytes % (Manual) 9, Eosinophils % (Manual) 1, Metamyelocytes % 2 H, Myelocytes % 2 H, Diff Path Review May foll, Atypical Lymphocytes 2+, Sodium 138, Potassium 3.8, Chloride 107, Carbon Dioxide 19.9 L, Anion Gap 11, BUN 17, Creatinine 0.65 L, Estim Creat Clear Calc 127.30, Est GFR (MDRD) Non-Af 113, BUN/Creatinine Ratio 26.6 H, Glucose 135 H, Calcium 8.4 Micro: Microbiology 08/12/24 Unknown Tissue - Left Foot Gram Stain - Final 08/12/24 Unknown Tissue - Left Foot Wound Culture - Preliminary Staphylococcus aureus Gram Positive Cocci 08/12/24 Unknown Tissue - Left Foot Gram Stain - Final 08/12/24 Unknown Tissue - Left Foot Wound Culture - Preliminary Staphylococcus aureus Streptococcus group A Gram positive organism 08/11/24 22:19 Blood Culture (Wb) - Left Forearm Blood Culture - Preliminary No growth in 48 hours. 08/11/24 21:39 Blood Culture (Wb) - Anticubital Left Blood Culture - Preliminary No growth in 48 hours. 08/12/24 01:35 Nasal Secretion MRSA (PCR) - Final Physical Exam Narrative alert, oriented x3 and no apparent distress Constitutional Narrative: Patient appears older than her stated age, she has class III obesity General Appearance: cooperative, well kempt and well developed Orientation / Consciousness: awake, oriented to person, oriented to place and oriented to time HEENT normocephalic, head/scalp atraumatic and moist oral mucous membranes Eyes PERRL, EOMs intact bilaterally and conjunctivae normal Neck supple, no JVD, thyroid normal and no carotid bruits General: trachea midline Resp normal respiratory effort and clear to auscultation bilaterally Auscultation: Negative for rales, rhonchi or wheezes Cardio regular rate, regular rhythm, S1 normal heart sound, S2 normal heart sound, no murmurs, no rub and no gallops GI normal to inspection, nondistended, normoactive bowel sounds, soft to palpation, non-tender and non-distended Skin Skin Narrative: Patient's left lower leg was wrapped with surgical dressing, this was not removed for examination of the area Neuro oriented x3, CN's II-XII intact bilaterally, no focal motor deficits and no sensory deficits noted Sensorium / Orientation: awake and alert Speech: speech normal Psych affect normal Assessment & Plan Assessment/Plan (1) Type 2 diabetes mellitus with foot ulcer: QUALIFIERS: Diabetes mellitus long-term insulin use: with energy technician use Qualified Code(s): E11.621 - Type 2 diabetes mellitus with foot ulcer; L97.509 - Non- pressure chronic ulcer of other part of unspecified foot with unspecified severity; Z79.4 - custodial (current) use of insulin PLAN: Plan 1. Sepsis secondary to left lower extremity cellulitis/left heel abscess-patient will remain on her current antibiotic coverage per infectious diseases-Flagyl, Zyvox, and cefepime #2 left heel abscess-patient is being seen by podiatry and may require further surgery on the left foot 08/16/2024 #3 type 2 svefevfy-wlwjvvegfpvi-zsfvscc's blood sugars will be monitored, sliding scale insulin will be administered #4 class III obesity-complicates care, management, recovery, and prognosis #5 Central hypertension-patient will remain on her current medications for blood pressure, blood pressure medications will be adjusted as needed Total clinical time spent by myself addressing the patient's medical issues, reviewing all of her data, and collaborating with the patient's care team: 35 minutes Charges/Coding Visit Charges Inpatient E&M: 03378 Subs Hosp L2 08/15/24 0820 <Electronically signed by Quynh Boyer DO> Cosigner Signature (if applicable): CC: ~ Signed [facility] Work Phone: [phone]) 603-868603-19-2025 Progress note Author Bev Ngo [facility] Note Date/Time August 14, 2024 4:2 8pm [facility] Medical Records Department [address] [place] [address] Progress Note - Infect Disease 08/14/24 1626 MR#: [id number] Acct: [id number] Name: DEBBY BAILON Rep #:[id number] : 1980 43 From: Bev newton MD PCP: Dr. Will Brannon MD Status:ADM IN Location: [place] [address] Physical Exam Narrative Feeling better, no fever, no n/v/d. Const alert and no apparent distress General Appearance: cooperative Resp normal air movement and clear to auscultation bilaterally Cardio regular rate and regular rhythm GI soft to palpation, non-tender and non-distended Skin Skin Narrative: foot wrapped ID ID: Route of nutrition/ use of supplements: [] Nutritional Intake: [] IV Site: [] Cook Catheter: [] Assessment & Plan Assessment/Plan (1) Abscess of left heel: PLAN: Now s/p OR 08/12/[address] Gonzalez for I&D of abscess. On vanc/cefepime/flagyl, feeling better, will continue. Wound cx staph aureus, strep, gram pos. OR planned for 08/16/24. Will follow, d/w Dr. Gonzalez (2) Diabetes mellitus with diabetic polyneuropathy: QUALIFIERS: Diabetes mellitus type: type 2 Diabetes mellitus long-term insulin use: with energy technician use Qualified Code(s): E11.42 - Type 2 diabetes mellitus with diabetic polyneuropathy; Z79.4 - custodial (current) use of insulin 08/14/24 1627 <Electronically signed by Bev Ngo MD> Cosigner Signature (if applicable): CC: ~ Signed ADDENDUM by Dr. Bev Ngo MD on 08/14/24 at 1628 Addendum correction, linezolid, not vanc 08/14/241627<Electronically signed by Bev Ngo MD> Cosigner Signature (if applicable): cc: ~* Signed [facility] Work Phone: 1(508) 959-998603-19-2025 Progress note Author Quynh Boyer [facility] Note Date/Time August 14, 2024 1:0 0pm [facility] Medical Records Department [address] [place] [address] Progress Note - Hospitalist 08/14/24 1259 MR#: [id number] Acct: [id number] Name: DEBBY BAILON Rep #:[id number] : 1980 43 From: Quynh Boyer DO PCP: Dr. Will Brannon MD Status:ADM IN Location: [facility] [id number] Reason for Visit Reason for Visit: Diagnoses Sepsis, unspecified organism (08/11/24) Elevated white blood cell count, unspecified (08/11/24) Type 2 diabetes mellitus with diabetic polyneuropathy (08/11/24) Type 2 diabetes mellitus with foot ulcer (08/11/24) Morbid (severe) obesity due to excess calories (08/11/24) Cutaneous abscess of left foot (08/11/24) Cellulitis of left lower limb (08/11/24) Non-pressure chronic ulcer of other part of unspecified foot with unspecified severity (08/11/24) Non-pressure chronic ulcer of other part of left foot with necrosis of muscle (08/11/24) Fever, unspecified (08/11/24) Resistance to unspecified antibiotic (08/11/24) Body mass index [BMI] 40.0-44.9, adult (08/11/24) 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 Objective Data Objective Data Vital Signs: Vital Signs Temp Pulse Resp BP Pulse Ox O2 Del Method O2 Flow Rate 97.6 F L 76 14 100/53 L 95 Room Air 2 08/14/24 08:21 08/14/24 08:21 08/14/24 08:21 08/14/24 08:21 08/14/24 08:21 08/14/24 10:00 08/12/24 17:05 Oxygen Flow Rate (L/min) 2 Oxygen Delivery Method Room Air Weight: 101.9 kg Body Mass Index (BMI) 42.4 Intake & Output: Intake and Output for Last 24 Hours 08/12/24 08/13/24 08/14/24 23:59 23:59 23:59 Intake Total 3750 / 3750 1900 / 1900 400 / 400 Output Total 2450 / 3950 3900 / 4600 1200 / 1200 Balance 1300 / -200 -2000 / -2700 -800 / -800 Lab / Micro Data 08/13/24 06:43 08/13/24 06:43 Labs: Laboratory Results - last 24 hr 08/13/24 16:41: POC Glucose 307 H 08/13/24 22:23: POC Glucose 270 H 08/14/24 08:25: POC Glucose 324 H Micro: Microbiology 08/11/24 22:19 Blood Culture (Wb) - Left Forearm Blood Culture - Preliminary No growth in 48 hours. 08/11/24 21:39 Blood Culture (Wb) - Anticubital Left Blood Culture - Preliminary No growth in 48 hours. 08/12/24 Unknown Tissue - Left Foot Gram Stain - Final 08/12/24 Unknown Tissue - Left Foot Wound Culture - Preliminary Staphylococcus aureus Streptococcus group A Gram positive organism 08/12/24 Unknown Tissue - Left Foot Anaerobic Culture - Preliminary 08/12/24 Unknown Tissue - Left Foot Gram Stain - Final 08/12/24 Unknown Tissue - Left Foot Wound Culture - Preliminary Staphylococcus aureus Gram Positive Cocci 08/12/24 Unknown Tissue - Left Foot Anaerobic Culture - Preliminary 08/12/24 01:35 Nasal Secretion MRSA (PCR) - Final Physical Exam Narrative alert, oriented x3 and no apparent distress Constitutional Narrative: Patient appears older than her stated age, she has class III obesity General Appearance: cooperative, well kempt and well developed Orientation / Consciousness: awake, oriented to person, oriented to place and oriented to time HEENT normocephalic, head/scalp atraumatic and moist oral mucous membranes Eyes PERRL, EOMs intact bilaterally and conjunctivae normal Neck supple, no JVD, thyroid normal and no carotid bruits General: trachea midline Resp normal respiratory effort and clear to auscultation bilaterally Auscultation: Negative for rales, rhonchi or wheezes Cardio regular rate, regular rhythm, S1 normal heart sound, S2 normal heart sound, no murmurs, no rub and no gallops GI normal to inspection, nondistended, normoactive bowel sounds, soft to palpation, non-tender and non-distended Skin Skin Narrative: Patient's left lower leg was wrapped with surgical dressing, this was not removed for examination of the area Neuro oriented x3, CN's II-XII intact bilaterally, no focal motor deficits and no sensory deficits noted Sensorium / Orientation: awake and alert Speech: speech normal Psych affect normal Assessment & Plan Assessment/Plan (1) Type 2 diabetes mellitus with foot ulcer: QUALIFIERS: Diabetes mellitus energy technician insulin use: with energy technician use Qualified Code(s): E11.621 - Type 2 diabetes mellitus with foot ulcer; L97.509 - Non- pressure chronic ulcer of other part of unspecified foot with unspecified severity; Z79.4 - custodial (current) use of insulin PLAN: Plan 1. Sepsis secondary to left lower extremity cellulitis/left heel abscess-patient will remain on her current antibiotic coverage per infectious diseases-Flagyl and cefepime #2 left heel abscess-patient is being seen by podiatry and may require further surgery on the left foot this week #3 type 2 uxqiokjl-gbbafhxtzrij-mwrrpzf's blood sugars will be monitored, sliding scale insulin will be administered #4 class III obesity-complicates care, management, recovery, and prognosis #5 Central hypertension-patient will remain on her current medications for blood pressure, blood pressure medications will be adjusted as needed Total clinical time spent by myself addressing the patient's medical issues, reviewing all of her data, and collaborating with the patient's care team: 35 minutes Charges/Coding Visit Charges Inpatient E&M: 03603 Subs Hosp L2 08/14/24 1300 <Electronically signed by Quynh Boyer DO> Cosigner Signature (if applicable): CC: ~ Signed [facility] Work Phone: 1(365) 824-662503-19-2025 History of Present illness Narrative* Josesito Verdin LPN - 08/14/2024 7:13 AM EDT Scan on 08/13/2024 10:26 AM by Provider, Melanie, [place]: Consultation - [facility] Progress note Author Quynh Boyer [facility] Note Date/Time August 13, 2024 6:1 7pm [facility] Medical Records Department [address] [place] [address] Progress Note - Hospitalist 08/13/24 1810 MR#: [id number] Acct: [id number] Name: DEBBY BAILON Rep #:[id number] : 1980 43 From: Quynh Boyer DO PCP: Dr. Will Brannon MD Status:ADM IN Location: [place] [address] Reason for Visit Reason for Visit: Diagnoses Sepsis, unspecified organism (08/11/24) Elevated white blood cell count, unspecified (08/11/24) Type 2 diabetes mellitus with diabetic polyneuropathy (08/11/24) Type 2 diabetes mellitus with foot ulcer (08/11/24) Morbid (severe) obesity due to excess calories (08/11/24) Cutaneous abscess of left foot (08/11/24) Cellulitis of left lower limb (08/11/24) Non-pressure chronic ulcer of other part of unspecified foot with unspecified severity (08/11/24) Non-pressure chronic ulcer of other part of left foot with necrosis of muscle (08/11/24) Fever, unspecified (08/11/24) Resistance to unspecified antibiotic (08/11/24) Body mass index [BMI] 40.0-44.9, adult (08/11/24) custodial (current) use of insulin (08/11/24) Patient's noncompliance with other medical treatment and regimen due to unspecified reason (08/11/24) Subjective Subjective Patient was seen and examined today, white count is improved from yesterday. Patient's CHEM panel was unremarkable except for a glucose of 287. Patient voices no complaints of any left foot pain at the time of my examination. Objective Data Objective Data Vital Signs: Vital Signs Temp Pulse Resp BP Pulse Ox O2 Del Method O2 Flow Rate 97.9 F 73 16 97/60 95 Room Air 2 08/13/24 09:00 08/13/24 09:00 08/13/24 09:00 08/13/24 09:00 08/13/24 09:07 08/13/24 09:07 08/12/24 17:05 Oxygen Flow Rate (L/min) 2 Oxygen Delivery Method Room Air Weight: 101.4 kg Body Mass Index (BMI) 42.2 Intake & Output: Intake and Output for Last 24 Hours 08/11/24 08/12/24 08/13/24 23:59 23:59 23:59 Intake Total 1050 / 1050 3750 / 3750 500 / 500 Output Total 2450 / 3950 3700 / 3700 Balance 1050 / 1050 1300 / -200 -3200 / -3200 Lab / Micro Data 08/13/24 06:43 08/13/24 06:43 Labs: Laboratory Results - last 24 hr 08/12/24 17:20: ESR 32 H, Hemoglobin A1c 11.8, C-React Prot Ext Range 252.00 H 08/12/24 17:46: POC Glucose 215 H 08/12/24 22:10: POC Glucose 322 H 08/12/24 : S.aureus Protein A PCR POSITIVE H, MRSA (PCR) Negative 08/13/24 06:43: WBC 18.2 H, RBC 3.44 L, Hgb 10.5 L, Hct 31.3 L, MCV 91.0, MCH 30.5, MCHC 33.5, RDW Std Deviation 43.6, RDW Coeff of Claude 13.2, Plt Count 164, MPV 10.7, Sodium 135, Potassium 4.8, Chloride 104, Carbon Dioxide 18.0 L, Anion Gap 13, BUN 14, Creatinine 0.79, Estim Creat Clear Calc 101.40, Est GFR (MDRD) Non-Af 96, BUN/Creatinine Ratio 17.1, Glucose 287 H, Calcium 8.5, Phosphorus 2.7 08/13/24 08:21: POC Glucose 258 H 08/13/24 11:30: POC Glucose 323 H 08/13/24 16:41: POC Glucose 307 H Micro: Microbiology 08/12/24 Unknown Tissue - Left Foot Gram Stain - Final 08/12/24 Unknown Tissue - Left Foot Gram Stain - Final 08/12/24 01:35 Nasal Secretion MRSA (PCR) - Final Physical Exam Narrative alert, oriented x3 and no apparent distress Constitutional Narrative: Patient appears older than her stated age, she has class III obesity General Appearance: cooperative, well kempt and well developed Orientation / Consciousness: awake, oriented to person, oriented to place and oriented to time HEENT normocephalic, head/scalp atraumatic and moist oral mucous membranes Eyes PERRL, EOMs intact bilaterally and conjunctivae normal Neck supple, no JVD, thyroid normal and no carotid bruits General: trachea midline Resp normal respiratory effort and clear to auscultation bilaterally Auscultation: Negative for rales, rhonchi or wheezes Cardio regular rate, regular rhythm, S1 normal heart sound, S2 normal heart sound, no murmurs, no rub and no gallops GI normal to inspection, nondistended, normoactive bowel sounds, soft to palpation, non-tender and non-distended Skin Skin Narrative: Patient's left lower leg was wrapped with surgical dressing, this was not removed for examination of the area Neuro oriented x3, CN's II-XII intact bilaterally, no focal motor deficits and no sensory deficits noted Sensorium / Orientation: awake and alert Speech: speech normal Psych affect normal Assessment & Plan Assessment/Plan (1) Type 2 diabetes mellitus with foot ulcer: QUALIFIERS: Diabetes mellitus long-term insulin use: with energy technician use Qualified Code(s): E11.621 - Type 2 diabetes mellitus with foot ulcer; L97.509 - Non- pressure chronic ulcer of other part of unspecified foot with unspecified severity; Z79.4 - 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 Sepsis secondary to left lower extremity cellulitis/left heel abscess-patient will remain on her current antibiotic coverage per infectious diseases-Flagyl and cefepime #2 left heel abscess-patient is being seen by podiatry and may require further surgery on the left foot #3 type 2 cwubkzev-aalijxtjhgga-zwnmxzq's blood sugars will be monitored, sliding scale insulin will be administered #4 class III obesity-complicates care, management, recovery, and prognosis #5 Central hypertension-patient will remain on her current medications for blood pressure, blood pressure medications will be adjusted as needed Total clinical time spent by myself addressing the patient's medical issues, reviewing all of her data, and collaborating with the patient's care team: 35 minutes Charges/Coding Visit Charges Inpatient E&M: 18768 Subs Hosp L2 08/13/24 1817 <Electronically signed by Quynh Boyer DO> Cosigner Signature (if applicable): CC: ~ Signed [facility] Work Phone: 1(198) 751-124803-18-2025 Consult note Author Bev Ngo [facility] Note Date/Time August 13, 2024 10: 17am [facility] Medical Records Department [address] [place] [address] Consultation - Infectious Dx 08/13/24 1012 MR#: [id number] Acct: [id number] Name: DEBBY BAILON Rep #:[id number] : 1980 43 From: Bev newton MD PCP: Dr. Will Brannon MD Status:ADM IN Location: [facility] TIP133- 1 Assessment & Plan Assessment/Plan (1) Abscess of left heel: PLAN: admitted on linezolid and clinda. Now s/p OR 08/12/[address] Gonzalez for I&D of abscess. On vanc/cefepime/flagyl, feeling better, will continue. Wound cx pending. Will follow, thank you, d/w primary team (2) Diabetes mellitus with diabetic polyneuropathy: QUALIFIERS: Diabetes mellitus type: type 2 Diabetes mellitus alf insulin use: with energy technician use Qualified Code(s): E11.42 - Type 2 diabetes mellitus with diabetic polyneuropathy; Z79.4 - custodial (current) use of insulin HPI Consult Data Date of Consult: 08/13/24 HPI Narrative Reason for Consultation: abscess HPI Narrative: DEBBY BAILON, is a 43 F with h/o DM neuropathy, suprapubic catheter, ostomy,spina bifida, presented with 2 weeks worsening L heel pain, redness, swelling. Seen in ED 07/31, given 10 days bactrim which helped somewhat. When abx stopped, developed fever, chills, nausea, not feeling well. Pain was moderate/severe. Came back to ED 08/11, admitted on linezolid and clinda. Now s/p OR 08/12/24 [address]Dr. Gonzalez for I&D of abscess. On vanc/cefepime/flagyl, feeling better. Full ROS performed and neg except as noted above. 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 Diabetic polyneuropathy Non-smoker Weakness Hyperglycemia Sepsis Urinary tract infection Diabetic foot infection Urinary tract infection Thyroid cyst Hematochezia Chronic nausea Insomnia PSVT (paroxysmal supraventricular tachycardia) Panic attacks Hyperlipidemia Lipomeningocele History of kidney stones Essential hypertension Dysthymic disorder DJD (degenerative joint disease) of thoracic spine Arthritis Anxiety and depression Uninodular goiter Non-compliance UTI (urinary tract infection) Cellulitis of left lower extremity Infection of bladder catheter Ulcer of left heel and midfoot with fat layer exposed Lower extremity edema Delayed wound healing Type 2 diabetes mellitus with diabetic polyneuropathy Diabetic ulcer of left heel with fat layer exposed Normochromic normocytic anemia Constipation Neurogenic bowel Neurogenic bladder Hydronephrosis of right kidney UTI (urinary tract infection) Diabetes mellitus, type II Morbid obesity with BMI of 40.0-44.9, adult Spina bifida aperta of lumbar spine History of migraine Chronic back pain Home Medications ?Medication ?Instructions ?Recorded ?Last Taken ?Type furosemide 20 mg tablet 20 mg PO 2200 fluid 08/28/18 08/10/24 History furosemide 40 mg tablet 40 mg PO BREAKFAST fluid 01/1408/10/24 History oxybutynin chloride 15 mg 15 mg PO DAILY bladder 11/1108/10/24 History tablet,extended release 24 hr acetaminophen 500 mg tablet 1,000 mg PO TID PRN PRN Pa in Or 02/12/20 08/11/24 History Fever trazodone 100 mg tablet 100 mg PO QHS sleep 01/19/21 08/10/24 History atorvastatin 80 mg tablet 80 mg PO DAILY cholesterol 0 01/29/21 08/10/24 History pen needle, diabetic 32 gauge x #400 ea 03/05/21 Unkno wn Rx (BD Ultra-Fine Hope Pen Needle) lisinopril 5 mg tablet 2.5 mg (1/2 x 5 mg) PO DAILY #90 01/21/22 08/10/24 Rx tabs pen needle, diabetic 32 gauge x #350 ea 09/01/22 Unkno wn Rx (BD Ultra-Fine Hope Pen Needle) loratadine 10 mg tablet (Allergy 10 mg PO DAILY Antigi stamine 11/07/23 08/10/24 History Relief (loratadine)) propranolol 20 mg tablet 20 mg PO BID Beta Pan 08/10/24 History insulin aspart See Rx Instructions subcut T ID 02/10/24 08/10/24 History (niacinamide)(U-100) 100 unit/mL(3 Glucose control mL) subcutaneous pen (Fiasp FlexTouch U-100 Insulin) pregabalin 75 mg capsule 75 mg PO BID Diabetic nerve pain 02/10/24 08/10/24 History ondansetron 4 mg disintegrating 4 mg PO Q8H PRN PRN Na usea #20 tabs 06/09/24 08/11/24 Rx tablet promethazine 25 mg tablet 25 mg PO TID PRN nausea and 07/31/24 08/01/24 Rx vomiting #20 tabs divalproex 500 mg tablet,delayed 500 mg PO QHS Migrain e Headaches 08/11/24 08/10/24 History release insulin glargine 100 unit/mL (3 40 unit subcut QHS dm 08/11/24 08/10/24 History mL) subcutaneous pen (Lantus Solostar U-100 Insulin) omeprazole 20 mg capsule,delayed 20 mg PO DAILY PPI 08/10/24 History release Allergy/AdvReac Type Severity Reaction Status Date / Time Cephalosporins Allergy Severe Anaphylaxis Verified 08/12/24 00:44 piperacillin (From Zosyn) Allergy Intermediate Hives Verified 08/12/24 00:44 ceftriaxone (From Rocephin) Allergy Anaphylaxis Verified 08/12/24 00:44 mushroom Allergy Anaphylaxis Verified 08/12/24 00:44 peanut Allergy Anaphylaxis Verified 08/12/24 00:44 tazobactam (From Zosyn) Allergy NEEDS Verified 08/12/24 00:44 FOLLOW-UP fentanyl AdvReac Low blood Verified 08/12/24 00:44 pressure gabapentin AdvReac Other Verified 08/12/24 00:44 Gadolinium-MRI Contrast AdvReac Vomiting Verified 08/12/24 00:44 Medium Latex, Natural Rubber AdvReac Rash Verified 08/12/24 00:44 vancomycin AdvReac Rash Verified 08/12/24 00:44 Family History Mother CVA (cerebral vascular accident) Thyroid disorder Diabetes Hypertension Heart disease Hyperlipidemia Myocardial infarction, Onset Age: 54 mother had diabetes Father Cancer skin Grandmother Cancer liver Other Arthritis Skin cancer Surgical History S/P colostomy S/P thyroid biopsy (~11/06/19) history insertion suprapubic catheter Status post gastric surgery Hx of foot surgery Hx of ventral hernia repair History of spinal surgery History of cholecystectomy History of dilation and curettage Social History household members: significant other Smoking Status: Never smoker alcohol intake: current substance use type: does not use Physical Exam Const alert, oriented x3 and no apparent distress General Appearance: cooperative HEENT normocephalic and head/scalp atraumatic Eyes PERRL and EOMs intact bilaterally Neck supple and No nodes Resp normal air movement and clear to auscultation bilaterally Cardio regular rate and regular rhythm GI soft to palpation, non-tender and non-distended Extremity General Extremity: edema Skin Skin Narrative: LLE wrapped Neuro CN's II-XII intact bilaterally Lab / Micro Data Attestation: I reviewed the patient's lab results. 08/13/24 06:43 08/12/24 05:51 Labs: Laboratory Results - last 24 hr 08/12/24 05:51: Plt Count 08/12/24 12:17: POC Glucose 185 H 08/12/24 15:12: Urine Test Negative 08/12/24 17:20: ESR 32 H, Hemoglobin A1c 11.8, C-React Prot Ext Range 252.00 H 08/12/24 17:46: POC Glucose 215 H 08/12/24 22:10: POC Glucose 322 H 08/12/24 : S.aureus Protein A PCR POSITIVE H, MRSA (PCR) Negative 08/13/24 06:43: WBC 18.2 H, RBC 3.44 L, Hgb 10.5 L, Hct 31.3 L, MCV 91.0, MCH 30.5, MCHC 33.5, RDW Std Deviation 43.6, RDW Coeff of Claude 13.2, Plt Count 164, MPV 10.7, Phosphorus 2.7 08/13/24 08:21: POC Glucose 258 H Micro: Microbiology 08/12/24 Unknown Tissue - Left Foot Wound Culture - Preliminary 08/12/24 Unknown Tissue - Left Foot Wound Culture - Preliminary Imaging Radiology Impression Lower Extremity MRI 08/12/24 00:55 IMPRESSION: The previously noted plantar and posterior ulcer over the left heel is again seen, with interval decreased appearance size of the subcutaneous fluid collection. No extension to the subjacent bone is seen. No acute osseous signal changes are seen. No area of abnormal osseous postcontrast enhancement. Normal appearance of the Achilles tendon is seen. No tendon pathology is noted. No joint effusion is evident. No evidence of osteomyelitis. Reading Location: [id number] 08/13/24 1017 <Electronically signed by Bev Ngo MD> Cosigner Signature (if applicable): CC: Dr. Will Brannon MD~ Signed [facility] Work Phone: 1(456) 257-724203-17-2025 Consult note Author Dez Moran [facility] Note Date/Time August 12, 2024 6:0 3pm [facility] Medical Records Department [address] [place] [address] Anesthesia Postop Eval II 08/12/24 1802 MR#: [id number] Acct: [id number] Name: DEBBY BAILON Rep #:[id number] : 1980 43 From: Dez Moran MD PCP: Dr. Will Brannon MD Status:ADM IN Y Race: C Location: [place] [address] Anesthesia Postop Eval I Sum Postop Eval Completion status Anesthesia document: Postop Eval 1 completed: Yes Anesthesia Postop Eval I Summary Anesthesia Postop Eval I Summary: Anesthesia Postop Eval I: Assessment Summary Airway patent Yes 08/12/24 16:55 PALM AND BACK FORGER.TNES Spontaneous unlabored Yes 08/12/24 16:55 PALM AND BACK FORGER.TNES respirations Mental status nausea No 08/12/24 16:55 PALM AND BACK FORGER.TNES Vomiting No 08/12/24 16:55 PALM AND BACK FORGER.TNES Anesthesia Postop Eval I: Fluid Summary Crystalloid volume administer 400 08/12/24 16:55 PALM AND BACK FORGER.TNES (ml) Colloids volume administered ( ml) Blood Product volume administered (ml) Total IV fluid infused 400 08/12/24 16:55 PALM AND BACK FORGER.TNES Anesthesia Postop Eval I: Summary Notes Anesthesia Complication No 08/12/24 16:55 PALM AND BACK FORGER.TNES Anesthesia Complication Comment: Post-operative progress note Anesthesia: Postop Eval II Evaluation Mental status: Awake and Calm Pain Level: 1 nausea: No Vomiting: No Complications Anesthesia Complication: No 08/12/24 1803 <Electronically signed by Dez langford MD> Date _ Dez Moran MD Cosigner Signature: Date CC: ~ Signed [facility] Work Phone: 1(154) 687-375703-17-2025 Consult note Author Garcia Gonzalez [facility] Note Date/Time August 12, 2024 5:2 4pm [facility] Medical Records Department [address] [place] [address] Consultation 08/12/24 1658 MR#: [id number] Acct: [id number] Name: DEBBY BAILON Rep #:[id number] : 1980 43 From: Garcia Smith PM PCP: Dr. Will Brannon MD Status:ADM IN Location: [place] [address] Assessment & Plan Assessment/Plan (1) Cutaneous abscess of left foot: PLAN: Patient was examined and evaluated. All findings were discussed with the patient. All questions were answered to the patient's satisfaction. MRI (08/12/2024): Show evidence of plantar and posterior ulcer over the left heelwith subcutaneous fluid collection. No evidence of bone destruction or osteomyelitis. After physical examination the patient shows evidence of deep tissue abscess to the left heel secondary to fissure. Due to the patient's noncompliance with herdiabetic blood sugar control I recommended taking the patient to the operating room to evacuate the deep tissue abscess with pulse lavage. All risk and benefits were discussed with the patient in great detail. Patient was agreeableto move forward with a left foot surgery. Plan for surgery Monday, for incision and drainage and washout. Patient is n.p.o. Medicine: On board, medical management, IV antibiotics cefepime and Flagyl WBC: 25.7 -> 23.4 Glu: 282 HbA1c: pending ESR: pending CRP: pending Podiatry will continue to follow the patient while in house. Will plan for delayed primary closure of the left heel full-thickness wound later on in the week when the patient is more stable. Recommend infectious disease consult Please reach out to Dr. Gonzalez with any questions or concerns. Thank you for the consultation! 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 She was placed on Bactrim twice daily for 10 days. Patient states she did do better but presented back to the emergency room on 08/11/2024 with worsening redness and swelling to the left lower extremity. Patient's HbA1c is 11%. She admits to being uncontrolled withher diabetes with a blood sugar as high as 300 mg/dL. When presenting to the emergency room she was complaining of pain to the left heel as well as nausea and vomiting. She admits to having past history of fissures and wounds to the left foot with multiple incisions and amputations. Patient does deny trauma. Denies constitutional symptoms. Other pedal complaints at this time. Podiatry consulted for left lower extremity cellulitis and abscess as well as for surgical intervention. [facility] Medical History (Updated 08/12/24 @ 17:[address] 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 Diabetic polyneuropathy Non-smoker Weakness Hyperglycemia Sepsis Urinary tract infection Diabetic foot infection Urinary tract infection Thyroid cyst Hematochezia Chronic nausea Insomnia PSVT (paroxysmal supraventricular tachycardia) Panic attacks Hyperlipidemia Lipomeningocele History of kidney stones Essential hypertension Dysthymic disorder DJD (degenerative joint disease) of thoracic spine Arthritis Anxiety and depression Uninodular goiter Non-compliance UTI (urinary tract infection) Cellulitis of left lower extremity Infection of bladder catheter Ulcer of left heel and midfoot with fat layer exposed Lower extremity edema Delayed wound healing Type 2 diabetes mellitus with diabetic polyneuropathy Diabetic ulcer of left heel with fat layer exposed Normochromic normocytic anemia Constipation Neurogenic bowel Neurogenic bladder Hydronephrosis of right kidney UTI (urinary tract infection) Diabetes mellitus, type II Morbid obesity with BMI of 40.0-44.9, adult Spina bifida aperta of lumbar spine History of migraine Chronic back pain Home Medications ?Medication ?Instructions ?Recorded ?Last Taken ?Type furosemide 20 mg tablet 20 mg PO 2200 fluid 08/28/18 08/10/24 History furosemide 40 mg tablet 40 mg PO BREAKFAST fluid 01/1408/10/24 History oxybutynin chloride 15 mg 15 mg PO DAILY bladder 11/1108/10/24 History tablet,extended release 24 hr acetaminophen 500 mg tablet 1,000 mg PO TID PRN PRN Pa in Or 02/12/20 08/11/24 History Fever trazodone 100 mg tablet 100 mg PO QHS sleep 01/19/21 08/10/24 History atorvastatin 80 mg tablet 80 mg PO DAILY cholesterol 0 01/29/21 08/10/24 History pen needle, diabetic 32 gauge x #400 ea 03/05/21 Unkno wn Rx (BD Ultra-Fine Hope Pen Needle) lisinopril 5 mg tablet 2.5 mg (1/2 x 5 mg) PO DAILY #90 01/21/22 08/10/24 Rx tabs pen needle, diabetic 32 gauge x #350 ea 09/01/22 Unkno wn Rx (BD Ultra-Fine Hope Pen Needle) loratadine 10 mg tablet (Allergy 10 mg PO DAILY Antigi stamine 11/07/23 08/10/24 History Relief (loratadine)) propranolol 20 mg tablet 20 mg PO BID Beta Pan 08/10/24 History insulin aspart See Rx Instructions subcut T ID 02/10/24 08/10/24 History (niacinamide)(U-100) 100 unit/mL(3 Glucose control mL) subcutaneous pen (Fiasp FlexTouch U-100 Insulin) pregabalin 75 mg capsule 75 mg PO BID Diabetic nerve pain 02/10/24 08/10/24 History ondansetron 4 mg disintegrating 4 mg PO Q8H PRN PRN Na usea #20 tabs 06/09/24 08/11/24 Rx tablet promethazine 25 mg tablet 25 mg PO TID PRN nausea and 07/31/24 08/01/24 Rx vomiting #20 tabs divalproex 500 mg tablet,delayed 500 mg PO QHS Migrain e Headaches 08/11/24 08/10/24 History release insulin glargine 100 unit/mL (3 40 unit subcut QHS dm 08/11/24 08/10/24 History mL) subcutaneous pen (Lantus Solostar U-100 Insulin) omeprazole 20 mg capsule,delayed 20 mg PO DAILY PPI 08/10/24 History release Allergy/AdvReac Type Severity Reaction Status Date / Time Cephalosporins Allergy Severe Anaphylaxis Verified 08/12/24 00:44 piperacillin (From Zosyn) Allergy Intermediate Hives Verified 08/12/24 00:44 ceftriaxone (From Rocephin) Allergy Anaphylaxis Verified 08/12/24 00:44 mushroom Allergy Anaphylaxis Verified 08/12/24 00:44 peanut Allergy Anaphylaxis Verified 08/12/24 00:44 tazobactam (From Zosyn) Allergy NEEDS Verified 08/12/24 00:44 FOLLOW-UP fentanyl AdvReac Low blood Verified 08/12/24 00:44 pressure gabapentin AdvReac Other Verified 08/12/24 00:44 Gadolinium-MRI Contrast AdvReac Vomiting Verified 08/12/24 00:44 Medium Latex, Natural Rubber AdvReac Rash Verified 08/12/24 00:44 vancomycin AdvReac Rash Verified 08/12/24 00:44 Family History Mother CVA (cerebral vascular accident) Thyroid disorder Diabetes Hypertension Heart disease Hyperlipidemia Myocardial infarction, Onset Age: 54 mother had diabetes Father Cancer skin Grandmother Cancer liver Other Arthritis Skin cancer Surgical History S/P colostomy S/P thyroid biopsy (~11/06/19) history insertion suprapubic catheter Status post gastric surgery Hx of foot surgery Hx of ventral hernia repair History of spinal surgery History of cholecystectomy History of dilation and curettage Social History household members: significant other Smoking Status: Never smoker alcohol intake: current substance use type: does not use Physical Exam Narrative Vascular: DP and PT pulses are palpable to left lower extremity. Nonpitting edema appreciated left lower extremity. Evidence of erythema with proximal streaking from the full-thickness wound to the left heel to the mid calf of the left lower extremity. Skin temperature gradient is warm to warm from proximal ankle to distal digits left extremity. Neurological: Light touch intact. Patient does not respond to painful stimuli. Dermatological: Full-thickness wound to the left heel down to subcutaneous tissue fascia and muscle. Evidence of malodor. Negative probe to bone. Evidence of purulent drainage. Musculoskeletal: History of amputation to the distal aspect of the left hallux and fifth ray of the left foot. No pain on palpation to the full-thickness wound left heel. No pain with calf pressure. Const alert, oriented x3 and no apparent distress Lab / Micro Data 08/12/24 05:51 08/12/24 05:51 Labs: Laboratory Results - last 24 hr 08/11/24 21:39: WBC 25.7 H, RBC 4.31, Hgb 13.1, Hct 38.6, MCV 89.6, MCH 30.4, MCHC 33.9, RDW Std Deviation 42.4, RDW Coeff of Claude 12.8, Plt Count 237, MPV 10.0, Immature Gran % (Auto) 1.200 H, Neut % (Auto) 87.4 H, Lymph % (Auto) 7.8 L, [place] % (Auto) 3.3, Eos % (Auto) 0.0, Baso % (Auto) 0.3, Absolute Neuts (auto) 22.5 H, Absolute Lymphs (auto) 2.00, Nucleated RBC % 0, Differential Comment SEECOMMENT, Platelet Estimate ADEQUATE, RBC Morphology N CHROM, Anisocytosis RARE, Macrocytosis RARE, Sodium 127 L, Potassium 4.5, Chloride 91 L, Carbon Dioxide 18.7 L, Anion Gap 17 H, BUN 12, Creatinine 1.19, Estim Creat Clear Calc 66.77, Est GFR (MDRD) Non-Af 59 L, BUN/Creatinine Ratio 9.7 L, Glucose 294 H, UtflovcgzbC0b 11.9, Lactic Acid 1.6, Calcium 9.7, Magnesium 1.7, TSH 1.550, Valproic Acid < 3 L 08/12/24 01:25: Sodium 128 L, Potassium 3.9, Chloride 97 L, Carbon Dioxide 17.6 L, Anion Gap 13, BUN 10, Creatinine 0.92, Estim Creat Clear Calc 85.97, Est GFR (MDRD) Non-Af 79, BUN/Creatinine Ratio 11.3, Glucose 257 H, Calcium 8.2 08/12/24 05:45: Urine Color Yellow, Urine Clarity Sl. Cloudy, Urine pH 6.0, Ur Specific Isabella 1.015, Urine Protein 30 H, Urine Glucose (UA) 1000 H, Urine Ketones 50 H, Urine Occult Blood 50 H, Urine Nitrite Negative, Urine Bilirubin Negative, Urine Urobilinogen Normal, Ur Leukocyte Esterase 500 H, Urine RBC 0 SEEN, Urine WBC 10-25 SEEN, Ur Squamous Epith Cells 0 SEEN, Urine Bacteria 2+, Urine Mucus 0 SEEN 08/12/24 05:51: WBC 23.4 H, RBC 4.00 L, Hgb 12.2, Hct 37.1, MCV 92.8, MCH 30.5, MCHC 32.9, RDW Std Deviation 44.7 H, RDW Coeff of Claude 13.2, Plt Count , MPV 10.7, Immature Gran % (Auto) 1.500 H, Neut % (Auto) 79.0 H, Lymph % (Auto) 13.9 L, [place] % (Auto) 5.3, Eos % (Auto) 0.0, Baso % (Auto) 0.3, Absolute Neuts (auto)18.5 H, Absolute Lymphs (auto) 3.25, Nucleated RBC % 0, Platelet Estimate ADEQUATE, Sodium 131 L, Potassium 4.4, Chloride 100, Carbon Dioxide 18.4 L, Anion Gap 13, BUN 9, Creatinine 0.89, Estim Creat Clear Calc 88.86, Est GFR (MDRD) Non-Af 83, BUN/Creatinine Ratio 10.5, Glucose 282 H, Calcium 8.4, Phosphorus 3.0, Total Bilirubin 0.45, AST 51 H, ALT 71 H, Alkaline Phosphatase 95, Total Protein 7.4, Albumin 3.5, Globulin 3.8, Albumin/Globulin Ratio 0.9, Triglycerides 163, Cholesterol 137, LDL Cholesterol, Calc 67, VLDL Cholesterol 33, HDL Cholesterol 38 L, Cholesterol/HDL Ratio 3.63, b-Hydroxybutyric mmol/L 1.1 08/12/24 12:17: POC Glucose 185 H 08/12/24 15:12: Urine Test Negative Micro: Microbiology 08/12/24 01:35 Nasal Secretion MRSA (PCR) - Final Imaging Radiology Impression Lower Extremity CT 08/12/24 00:00 IMPRESSION: No acute bony abnormality or gross bony destructive process of the left tibia/fibula. There are areas of skin thickening and induration of the underlying subcutaneousfat, suggesting cellulitis, greatest in the left heel region. At the posterior margin of the left heel, there appears to be 11 mm skin defect/wound with possible underlying 3.5 x 1.4 cm fluid collection/abscess. Suggest correlation with clinical exam findings. Reading Location: [facility] Lower Extremity MRI 08/12/24 00:55 IMPRESSION: The previously noted plantar and posterior ulcer over the left heel is again seen, with interval decreased appearance size of the subcutaneous fluid collection. No extension to the subjacent bone is seen. No acute osseous signal changes are seen. No area of abnormal osseous postcontrast enhancement. Normal appearance of the Achilles tendon is seen. No tendon pathology is noted. No joint effusion is evident. No evidence of osteomyelitis. Reading Location: [id number] 08/12/24 8014 <Electronically signed by Garcia Gonzalez DPM> Cosigner Signature (if applicable): CC: Dr. Will Brannon MD~ Signed [facility] Work Phone: [phone] 241-593403-17-2025 Progress note Author Quynh Boyer [facility] Note Date/Time August 12, 2024 5:1 9pm [facility] Medical Records Department [address] [place] [address] Progress Note - Hospitalist 08/12/24 5050 MR#: [id number] Acct: [id number] Name: DEBBY BAILON Rep #:[id number] : 1980 43 From: Quynh Boyer DO PCP: Dr. 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 I talked briefly with podiatry about the patient's care today. Patient appears to have a fluid collection in the left heel that is approximately 3-1/2 x 1.4 cm. Objective Data Objective Data Vital Signs: Vital Signs Temp Pulse Resp BP Pulse Ox O2 Del Method O2 Flow Rate 97.6 F L 78 16 117/85 H 99 Room Air 2 08/12/24 16:55 08/12/24 17:10 08/12/24 17:10 08/12/24 17:10 08/12/24 17:10 08/12/24 17:10 08/12/24 17:05 Oxygen Flow Rate (L/min) 2 Oxygen Delivery Method Room Air Weight: 99.2 kg Body Mass Index (BMI) 41.3 Intake & Output: Intake and Output for Last 24 Hours 08/10/24 08/11/24 08/12/24 23:59 23:59 23:59 Intake Total 1050 / 1050 3350 / 3350 Output Total 2450 / 2450 Balance 1050 / 1050 900 / 900 Lab / Micro Data 08/12/24 05:51 08/12/24 05:51 Labs: Laboratory Results - last 24 hr 08/11/24 21:39: WBC 25.7 H, RBC 4.31, Hgb 13.1, Hct 38.6, MCV 89.6, MCH 30.4, MCHC 33.9, RDW Std Deviation 42.4, RDW Coeff of Claude 12.8, Plt Count 237, MPV 10.0, Immature Gran % (Auto) 1.200 H, Neut % (Auto) 87.4 H, Lymph % (Auto) 7.8 L, [place] % (Auto) 3.3, Eos % (Auto) 0.0, Baso % (Auto) 0.3, Absolute Neuts (auto) 22.5 H, Absolute Lymphs (auto) 2.00, Nucleated RBC % 0, Differential Comment SEE COMMENT, Platelet Estimate ADEQUATE, RBC Morphology N CHROM, Anisocytosis RARE, Macrocytosis RARE, Sodium 127 L, Potassium 4.5, Chloride 91 L, Carbon Dioxide 18.7 L, Anion Gap 17 H, BUN 12, Creatinine 1.19, Estim Creat Clear Calc 66.77, Est GFR (MDRD) Non-Af 59 L, BUN/Creatinine Ratio 9.7 L, Glucose 294 H, Hemoglobin A1c 11.9, Lactic Acid 1.6, Calcium 9.7, Magnesium 1.7, TSH 1.550, Valproic Acid < 3 L 08/12/24 01:25: Sodium 128 L, Potassium 3.9, Chloride 97 L, Carbon Dioxide 17.6 L, Anion Gap 13, BUN 10, Creatinine 0.92, Estim Creat Clear Calc 85.97, Est GFR (MDRD) Non-Af 79, BUN/Creatinine Ratio 11.3, Glucose 257 H, Calcium 8.2 08/12/24 05:45: Urine Color Yellow, Urine Clarity Sl. Cloudy, Urine pH 6.0, Ur Specific Isabella 1.015, Urine Protein 30 H, Urine Glucose (UA) 1000 H, Urine Ketones 50 H, Urine Occult Blood 50 H, Urine Nitrite Negative, Urine Bilirubin Negative, Urine Urobilinogen Normal, Ur Leukocyte Esterase 500 H, Urine RBC 0 SEEN, Urine WBC 10-25 SEEN, Ur Squamous Epith Cells 0 SEEN, Urine Bacteria 2+, Urine Mucus 0 SEEN 08/12/24 05:51: WBC 23.4 H, RBC 4.00 L, Hgb 12.2, Hct 37.1, MCV 92.8, MCH 30.5, MCHC 32.9, RDW Std Deviation 44.7 H, RDW Coeff of Claude 13.2, Plt Count , MPV 10.7, Immature Gran % (Auto) 1.500 H, Neut % (Auto) 79.0 H, Lymph % (Auto) 13.9 L, [place] % (Auto) 5.3, Eos % (Auto) 0.0, Baso % (Auto) 0.3, Absolute Neuts (auto) 18.5 H, Absolute Lymphs (auto) 3.25, Nucleated RBC % 0, Platelet Estimate ADEQUATE, Sodium 131 L, Potassium 4.4, Chloride 100, Carbon Dioxide 18.4 L, Anion Gap 13, BUN 9, Creatinine 0.89, Estim Creat Clear Calc 88.86, Est GFR (MDRD) Non-Af 83, BUN/Creatinine Ratio 10.5, Glucose 282 H, Calcium 8.4, Phosphorus 3.0, Total Bilirubin 0.45, AST 51 H, ALT 71 H, Alkaline Phosphatase 95, Total Protein 7.4, Albumin 3.5, Globulin 3.8, Albumin/Globulin Ratio 0.9, Triglycerides 163, Cholesterol 137, LDL Cholesterol, Calc 67, VLDL Cholesterol 33, HDL Cholesterol 38 L, Cholesterol/HDL Ratio 3.63, b-Hydroxybutyric mmol/L 1.1 08/12/24 12:17: POC Glucose 185 H 08/12/24 15:12: Urine Test Negative Micro: Microbiology 08/12/24 01:35 Nasal Secretion MRSA (PCR) - Final Radiography Diagnostic Testing: Radiology Impression Lower Extremity CT 08/12/24 00:00 IMPRESSION: No acute bony abnormality or gross bony destructive process of the left tibia/fibula. There are areas of skin thickening and induration of the underlying subcutaneous fat, suggesting cellulitis, greatest in the left heel region. At the posterior margin of the left heel, there appears to be 11 mm skin defect/wound with possible underlying 3.5 x 1.4 cm fluid collection/abscess. Suggest correlation with clinical exam findings. Reading Location: [facility] Lower Extremity MRI 08/12/24 00:55 IMPRESSION: The previously noted plantar and posterior ulcer over the left heel is again seen, with interval decreased appearance size of the subcutaneous fluid collection. No extension to the subjacent bone is seen. No acute osseous signal changes are seen. No area of abnormal osseous postcontrast enhancement. Normal appearance of the Achilles tendon is seen. No tendon pathology is noted. No joint effusion is evident. No evidence of osteomyelitis. Reading Location: [address] Physical Exam Const alert, oriented x3 and no apparent distress Constitutional Narrative: Patient appears older than her stated age, she has class III obesity General Appearance: cooperative, well kempt and well developed Orientation / Consciousness: awake, oriented to person, oriented to place and oriented to time HEENT normocephalic, head/scalp atraumatic and moist oral mucous membranes Eyes PERRL, EOMs intact bilaterally and conjunctivae normal Neck supple, no JVD, thyroid normal and no carotid bruits General: trachea midline Resp normal respiratory effort and clear to auscultation bilaterally Auscultation: Negative for rales, rhonchi or wheezes Cardio regular rate, regular rhythm, S1 normal heart sound, S2 normal heart sound, no murmurs, no rub and no gallops GI normal to inspection, nondistended, normoactive bowel sounds, soft to palpation, non-tender and non-distended Skin Skin Narrative: Patient's left lower leg was wrapped with surgical dressing, this was not removed for examination of the area Neuro oriented x3, CN's II-XII intact bilaterally, no focal motor deficits and no sensory deficits noted Sensorium / Orientation: awake and alert Speech: speech normal Psych affect normal Assessment & Plan Assessment/Plan (1) Type 2 diabetes mellitus with foot ulcer: QUALIFIERS: 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 Left lower extremity cellulitis-patient will remain on her current antibiotic coverage per infectious diseases-Flagyl and cefepime #2 left heel abscess-patient will be seen by podiatry, this may need drained, she will remain on her current antibiotic coverage #3 type 2 [id number]'s blood sugars will be monitored, sliding scale insulin will be administered #4 class III obesity-complicates care, management, recovery, and prognosis #5 Central hypertension-patient will remain on her current medications for blood pressure, blood pressure medications will be adjusted as needed Total clinical time spent by myself addressing the patient's medical issues, reviewing all of her data, and collaborating with the patient's care team: 35 minutes Charges/Coding Visit Charges Inpatient E&M: 03635 Subs Hosp L2 08/12/24 1719 <Electronically signed by Quynh Boyer DO> Cosigner Signature (if applicable): CC: ~ Signed [facility] Work Phone: [phone]) 433-229103-17-2025 Consult note Author Lefty Barnes [facility] Note Date/Time August 12, 2024 4:5 6pm [facility] Medical Records Department [address] [place] [address] Anesthesia Postop Eval I 08/12/241654 MR#: [id number] Acct: [id number] Name: DEBBY BAILON Rep #:[id number] : 1980 43 From: Lefty ENNIS PCP: Dr. Will Brannon MD Status:ADM IN Y Race: C Location: [place] [address] Anesthesia: Postop Eval I Current Vital Signs Temperature: 97.6 F Pulse Rate: 86 Blood Pressure: 113/95 Respiratory Rate: 14 Pulse Ox: 92 Assessment Airway patent: Yes Spontaneous unlabored respirations: Yes nausea: No Vomiting: No Anesthesia Complication: No Fluid Hydration Crystalloid volume administer (ml): 400 Total IV fluid infused: 400 Progress Note Anesthesia document: Postop Eval 1 completed: Yes 08/12/241655 <Electronically signed by Lefty Barnes CRNA> Date _ Lefty Barnes CRNA Cosigner Signature: Date CC: ~ Signed [facility] Work Phone: [phone] 325-541403-17-2025 Procedure [facility] 08-12-2024 Consult note Author Dez Moran [facility] Note Date/Time August 12, 2024 3:2 2pm [facility] Medical Records Department [address] [place] [address] Pre-Anesthesia Evaluation 08/12/24 1512 MR#: [id number] Acct: [id number] Name: DEBBY BAILON Rep #:[id number] : 1980 43 From: Dez Moran MD PCP: Dr. Will Brannon MD Status:ADM IN Y Race: C Location: [place] [address] ASA Classification* ASA Classification ASA Classification: 3 Assessment & Plan Anesthesia* Anesthesia Assessment Anesthesia Assessment: Discussed sedation and/or anesthesia options, risks, benefits, and alternatives with patient/parents/legal guardian/POA. Questions invited. The patient/parents/legal guardian/POA seems to understand and agrees to proceedwith anesthesia plan. Reviewed the physical assessment, medical history, allergy history and patient home medications list prior to surgery/procedure/anesthetic and documented any changes. Performed airway and anesthesia risk assessments. Anesthesia Type Anesthesia Type: General History Source History Obtained from:: Chart Anesthesia Focused Assessment* Temperature: 98.6 F Pulse Rate: 89 Blood Pressure: 119/65 Respiratory Rate: 16 Pulse Ox: 98 Oxygen Delivery Method: Room Air Oxygen Flow Rate (L/min): 2 Airway Assessment Mouth opens: >3 cm Mallampati Score: III Teeth Condition: Chipped/Broken (Multiple chipped teeth) and Missing (Multiple missing teeth.) Neck Range of motion (ROM): Full ROM Focused Labs Anesthesia Preop lab: CBC WBC 23.4 K/mm3 (4.4-11.0) H 08/12/24 05:51 5 RBC 4.00 M/mm3 (4.2-5.4) L 08/12/24 05:51 08/12/24 Hgb 12.2 g/dL (12.0-15.0) 08/12/24 05:51 08/12/24 Hct 37.1 % (37-47) 08/12/24 05:51 08/12/24 Plt Count K/mm3 (150-450) 08/12/24 05:51 08/12/24 CHEMISTRY Potassium 4.4 mmol/L (3.3-5.1) 08/12/24 05:51 08/12/24 Sodium 131 mmol/L (133-145) L 08/12/24 05:51 08/12/24 Magnesium 1.7 mg/dL (1.5-2.2) 08/11/24 21:39 08/11/24 Phosphorus 3.0 mg/dL (2.7-4.5) 08/12/24 05:51 08/12/24 BUN 9 mg/dL (4-19) 08/12/24 05:51 08/12/24 Creatinine 0.89 mg/dL (0.70-1.20) 08/12/24 05:51 08/12/24 Glucose 282 mg/dL (70-99) H 08/12/24 05:51 08/12/24 POC Glucose 185 mg/dL (74-106) H 08/12/24 12:17 08/12/24 TSH 1.550 uIU/mL (0.300-4.200) 08/11/24 21:39 07/27 11/20 COAG PT 12.3 SECONDS (11.7-14.9) 07/11/24 17:40 HCG, Quant < 1 mIU/mL (<9 non-preg) 10/24/12 11:05 3 Urine Test Negative Negative 07/15/22 06:00 07/15/22 Pre-Assessment Diagnosis/Proposed Procedure Planned Operative Procedure(s): Irrigation and debridement washout of the left heel abscess. 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 When Was Last Pacemaker Check QUESTION #4 FULL TEXT: You/Your Family Experience fever (hyperthermia) with Anesthesia Last Oral Intake Last Oral intake: Last Oral Intake NPO since 00:00 08/12/24 14:58 Meds taken in AM with sips of Yes 08/12/24 14:58 water? 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 Has anyone observed you stop Yes 08/11/24 23:02 breathing during sleep? STOP Results Positive 08/11/24 23:02 QUESTION #5 FULL TEXT : Do you snore loudly (louder than talking or can be heard through closed doors)? 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 Specify any problems Hx of Preganancy in last 3 No 08/11/24 23:02 Months Nurse Filling Out Transfusion JSNOW 08/11/24 23:02 & Questions: Date: 08/12/24 08/11/24 23:02 Time: 00:40 08/11/24 23:02 Patient unable to answer at this time (ie. 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 INHALATION Q2H PRN PRN SOB &/OR WHEEZING Ascorbic Acid 1,000 mg 08/12/24 08:00 08/12/24 10:32 Ascorbic Acid 500 Mg Tablet PO Not Given [facility] Atorvastatin Calcium 80 mg 08/12/24 22:00 Atorvastatin Calcium 80 Mg Tablet PO 2200 MIREYA Cholecalciferol 125 mcg 08/12/24 10:00 08/12/24 11:58 Cholecalciferol (Vit D3) 125 Mcg Capsule (5,000 Units) PO Not Given DAILY MIREYA Divalproex Sodium 500 mg 08/12/24 22:00 Divalproex Sodium 250 Mg Tablet PO QHS MIREYA Enoxaparin Sodium 40 mg 08/12/24 00:11 08/12/24 10:33 Enoxaparin 40 Mg/0.4 Ml Syringe SC Not Given BID MIREYA Glucagon 1 mg 08/12/24 00:11 Glucagon 1 Mg/Ml Syringe IM X1 PRN HYPOGLYCEMIA Protocol Linezolid 600 mg in 300 mls @ 200 mls/hr 08/12/24 00:11 08/12/24 13:30 Zyvox 600mg IV Infused Q12 MIREYA Infusion Sodium Chloride 100 mls @ 15 mls/hr 08/12/24 00:12 IV .Q6H40M PRN Saline Flush Sodium Chloride 100 mls @ 15 mls/hr 08/12/24 00:12 IV .Q6H40M PRN Additional IVPB Infusion Cefepime HCl 2 gm/ Sodium 100 mls @ 200 mls/hr 08/12/24 09:35 08/12/24 14:09 Chloride IV 200 mls/hr Q8 MIREYA Administration Insulin Glargine 30 unit 08/12/24 00:11 08/12/24 01:08 Insulin Glargine-Yfgn 100 Unit/Ml Pen SC 30 unit QHS MIREYA Administration Insulin Human Lispro 12 unit 08/12/24 08:00 08/12/24 12:22 Insulin Lispro 100 Unit/Ml Insuln.Pen SC Not Given [facility] Insulin Human Lispro 0 unit 08/12/24 08:00 08/12/24 12:22 Insulin Lispro 100 Unit/Ml Insuln.Pen SC 2 u TIDCM [facility] Administration Protocol Loratadine 10 mg 08/12/24 10:00 08/12/24 11:59 Loratadine 10 Mg Tablet PO Not Given DAILY [facility] Magnesium Hydroxide 30 ml 08/12/24 00:11 Magnesium Hydroxide 30 Ml Udc PO DAILY PRN PRN Constipation Melatonin 3 mg 08/12/24 00:11 Melatonin 3 Mg Tablet PO QHS PRN PRN INSOMNIA Metronidazole 500 mg 08/12/24 09:45 08/12/24 14:12 Metronidazole 500 Mg Tablet PO Not Given TID [facility] Morphine Sulfate 2 mg 08/12/24 00:11 08/12/24 14:08 Morphine 2 Mg/Ml Syringe IV 2 mg Q4H PRN PRN Administration Pain Score 6-10 Ondansetron HCl 4 mg 08/12/24 00:11 08/12/24 09:03 Ondansetron 4 Mg/2 Ml Vial IV 4 mg Q4H PRN PRN Administration NAUSEA/VOMITING Pantoprazole Sodium 20 mg 08/12/24 10:00 08/12/24 11:58 Pantoprazole Sodium 20 Mg Tablet PO Not Given DAILY [facility] Pregabalin 75 mg 08/12/24 10:00 08/12/24 12:00 Pregabalin 75 Mg Capsule PO Not Given BID [facility] Sodium Chloride 10 - 40 ml 08/12/24 00:12 0.9% Saline Lock 10 Ml Syringe IV UD PRN SALINE FLUSH Tolterodine Tartrate 4 mg 08/12/24 10:00 08/12/24 11:58 Tolterodine Tartrate 4 Mg Cap.Sa PO Not Given DAILY [facility] Trazodone HCl 100 mg 08/12/24 22:00 Trazodone 100 Mg Tablet PO QHS [facility] Zinc Sulfate 50 mg 08/12/24 00:11 08/12/24 11:58 Zinc Sulfate 50 Mg Zinc (220 Mg) Oral Capsule PO Not Given DAILY [facility] PFSH Medical History Suprapubic catheter Noncompliance with diabetes treatment Diabetes mellitus with diabetic polyneuropathy Depression Type 2 diabetes mellitus with foot ulcer Open wound of left foot Microalbuminuria CKD (chronic kidney disease) 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 Diabetic polyneuropathy Non-smoker Weakness Hyperglycemia Sepsis Urinary tract infection Diabetic foot infection Urinary tract infection Thyroid cyst Hematochezia Chronic nausea Insomnia PSVT (paroxysmal supraventricular tachycardia) Panic attacks Hyperlipidemia Lipomeningocele History of kidney stones Essential hypertension Dysthymic disorder DJD (degenerative joint disease) of thoracic spine Arthritis Anxiety and depression Uninodular goiter Non-compliance UTI (urinary tract infection) Cellulitis of left lower extremity Infection of bladder catheter Ulcer of left heel and midfoot with fat layer exposed Lower extremity edema Delayed wound healing Type 2 diabetes mellitus with diabetic polyneuropathy Diabetic ulcer of left heel with fat layer exposed Normochromic normocytic anemia Constipation Neurogenic bowel Neurogenic bladder Hydronephrosis of right kidney UTI (urinary tract infection) Diabetes mellitus, type II Morbid obesity with BMI of 40.0-44.9, adult Spina bifida aperta of lumbar spine History of migraine Chronic back pain Home Medications ?Medication ?Instructions ?Recorded ?Last Taken ?Type furosemide 20 mg tablet 20 mg PO 2200 fluid 08/28/18 08/10/24 History furosemide 40 mg tablet 40 mg PO BREAKFAST fluid 01/1408/10/24 History oxybutynin chloride 15 mg 15 mg PO DAILY bladder 11/1108/10/24 History tablet,extended release 24 hr acetaminophen 500 mg tablet 1,000 mg PO TID PRN PRN Pa in Or 02/12/20 08/11/24 History Fever trazodone 100 mg tablet 100 mg PO QHS sleep 01/19/21 08/10/24 History atorvastatin 80 mg tablet 80 mg PO DAILY cholesterol 0 01/29/21 08/10/24 History pen needle, diabetic 32 gauge x #400 ea 03/05/21 Unkno wn Rx (BD Ultra-Fine Hope Pen Needle) lisinopril 5 mg tablet 2.5 mg (1/2 x 5 mg) PO DAILY #90 01/21/22 08/10/24 Rx tabs pen needle, diabetic 32 gauge x #350 ea 09/01/22 Unkno wn Rx (BD Ultra-Fine Hope Pen Needle) loratadine 10 mg tablet (Allergy 10 mg PO DAILY Antigi stamine 11/07/23 08/10/24 History Relief (loratadine)) propranolol 20 mg tablet 20 mg PO BID Beta Pan 08/10/24 History insulin aspart See Rx Instructions subcut T ID 02/10/24 08/10/24 History (niacinamide)(U-100) 100 unit/mL(3 Glucose control mL) subcutaneous pen (Fiasp FlexTouch U-100 Insulin) pregabalin 75 mg capsule 75 mg PO BID Diabetic nerve pain 02/10/24 08/10/24 History ondansetron 4 mg disintegrating 4 mg PO Q8H PRN PRN Na usea #20 tabs 06/09/24 08/11/24 Rx tablet promethazine 25 mg tablet 25 mg PO TID PRN nausea and 07/31/24 08/01/24 Rx vomiting #20 tabs divalproex 500 mg tablet,delayed 500 mg PO QHS Migrain e Headaches 08/11/24 08/10/24 History release insulin glargine 100 unit/mL (3 40 unit subcut QHS dm 08/11/24 08/10/24 History mL) subcutaneous pen (Lantus Solostar U-100 Insulin) omeprazole 20 mg capsule,delayed 20 mg PO DAILY PPI 08/10/24 History release Allergy/AdvReac Type Severity Reaction Status Date / Time Cephalosporins Allergy Severe Anaphylaxis Verified 08/12/24 00:44 piperacillin (From Zosyn) Allergy Intermediate Hives Verified 08/12/24 00:44 ceftriaxone (From Rocephin) Allergy Anaphylaxis Verified 08/12/24 00:44 mushroom Allergy Anaphylaxis Verified 08/12/24 00:44 peanut Allergy Anaphylaxis Verified 08/12/24 00:44 tazobactam (From Zosyn) Allergy NEEDS Verified 08/12/24 00:44 FOLLOW-UP fentanyl AdvReac Low blood Verified 08/12/24 00:44 pressure gabapentin AdvReac Other Verified 08/12/24 00:44 Gadolinium-MRI Contrast AdvReac Vomiting Verified 08/12/24 00:44 Medium Latex, Natural Rubber AdvReac Rash Verified 08/12/24 00:44 vancomycin AdvReac Rash Verified 08/12/24 00:44 Family History Mother CVA (cerebral vascular accident) Thyroid disorder Diabetes Hypertension Heart disease Hyperlipidemia Myocardial infarction, Onset Age: 54 mother had diabetes Father Cancer skin Grandmother Cancer liver Other Arthritis Skin cancer Surgical History S/P colostomy S/P thyroid biopsy (~11/06/19) history insertion suprapubic catheter Status post gastric surgery Hx of foot surgery Hx of ventral hernia repair History of spinal surgery History of cholecystectomy History of dilation and curettage Social History household members: significant other Smoking Status: Never smoker alcohol intake: current substance use type: does not use Review of Systems (Anesthesia) ROS Narrative System reviewed and no additional complaints, except as documented. 08/12/24 1522 <Electronically signed by Dez langford MD> Date _ Dez Moran MD Cosigner Signature: Date CC: ~ Signed [facility] Work Phone: [phone] History and physical note Author Ramana Cervantes [facility] Note Date/Time August 12, 2024 6:4 6am [facility] Medical Records Department [address] [place] [address] H&P Exam - Hospitalist 08/11/24 2243 MR#: [id number] Acct: [id number] Name: DEBBY BAILON Rep #:[id number] : 1980 43 From: Ramana Beltran DO PCP: Dr. Will Brannon MD Status:ADM IN Location: [place] [id number] HPI - General General Date of Admission: 08/11/24 Date of Service: 08/11/24 Chief Complaint: Left Leg Cellulitis and Fever. HPI Narrative DEBBY BAILON, is a 43 F with a past medical history of essential hypertension; on lisinopril, propranolol and furosemide, hyperlipidemia; on atorvastatin, morbid obesity; with BMI of 41.7 this admission, DM-2; uncontrolled with Hyperglycemia complicated by history of noncompliance with diabetic treatment on insulin glargine 40 units SQ at bedtime plus insulin aspart 3 times daily, diabetic polyneuropathy; on pregabalin twice daily, history of DFU of the Left foot; with history of amputation of the first digit, history of sepsis, history of PSVT, history of uninodular goiter; s/p thyroid biopsy (2019), CKD; stage II, chronic normochromic normocytic anemia, history ofUTI, history of renal calculi, overactive bladder; on oxybutynin, history of hydronephrosis of the Right kidney, history of neurogenic bladder; with subsequent suprapubic catheter, history of Manley's palsy, history of gastric surgery, history of ventral hernia repair, history of colostomy, history of cholecystectomy, history of D&C, depression with anxiety and panic attack; on trazodone, history of migraine headaches, history of lipomeningocele, GERD; on omeprazole, OA; with DJD and spina bifida of the lumbar spine of the thoracic spine; s/p spinal surgery x2 with chronic back pain and recent evaluation in theER here 11 days ago here on July 31, 2024 for complaints of Cellulitis extendingfrom the mid-calf down to the Left foot; with x-rays of the Left foot unremarkable for obvious bony abnormality or evidence of osteomyelitis with a corresponding leukocytosis of 18.5 K present on admission, for which she was treated with oral Bactrim twice daily x 10 days who presents to [facility] ER complaining of worsening Left lower extremity cellulitis and fever. Mrs. Bailon reports her symptoms initially improved on oral Bactrim but then few days ago the redness and swelling began. She also admits to decreased energy and malaise with chills and fever as high as 104 ?F so she decided to come back for further evaluation and treatment. She does admit to taking Tylenol prior to arrival which minimally helped with her moderate pain but did help with her fever. She also admits to nausea and vomiting with persistent hyperglycemia between ~200-300 mg/dL in spite of taking her insulin as prescribed. She admits her symptoms are similar to her previous bouts of cellulitis. She denies associated visual changes, runny nose, sore throat, ear pain, chest pain, cough, shortness of breath, abdominal pain, dysuria, hematuria, arthralgias, headache, chest pain or shortness of breath. In the ER she was noted to be febrile with initial temperature of 101.3 ?F with tachycardia of 107 bpm in addition to severe leukocytosis of 25.7K with Left shift-shift of 1.2% present on admission consistent with suspected Sepsis due tooutpatient antibiotic treatment failure with oral Bactrim with corresponding clinical evidence of Cellulitis extending from the Left knee to the mid-foot with CT evidence of skin thickening and induration of the underlying subcutaneous fat, suggesting cellulitis, greatest in the Left heel region and atthe posterior margin of the Left heel, there appears to be an ~11 mm skin defect/wound with possible underlying ~3.5 x ~1.4 cm Fluid Collection/Abscess. Suggest correlation with clinical exam findings in the setting of DM-2; uncontrolled with Hyperglycemia and she was then admitted to the PCU for treatment under the sepsis protocol for a stay that is expected to extend beyond2 midnights. [facility] Medical History (Updated 08/12/24 @ 00:[address] 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 Diabetic polyneuropathy Non-smoker Weakness Hyperglycemia Sepsis Urinary tract infection Diabetic foot infection Urinary tract infection Thyroid cyst Hematochezia Chronic nausea Insomnia PSVT (paroxysmal supraventricular tachycardia) Panic attacks Hyperlipidemia Lipomeningocele History of kidney stones Essential hypertension Dysthymic disorder DJD (degenerative joint disease) of thoracic spine Arthritis Anxiety and depression Uninodular goiter Non-compliance UTI (urinary tract infection) Cellulitis of left lower extremity Infection of bladder catheter Ulcer of left heel and midfoot with fat layer exposed Lower extremity edema Delayed wound healing Type 2 diabetes mellitus with diabetic polyneuropathy Diabetic ulcer of left heel with fat layer exposed Normochromic normocytic anemia Constipation Neurogenic bowel Neurogenic bladder Hydronephrosis of right kidney UTI (urinary tract infection) Diabetes mellitus, type II Morbid obesity with BMI of 40.0-44.9, adult Spina bifida aperta of lumbar spine History of migraine Chronic back pain Home Medications ?Medication ?Instructions ?Recorded ?Last Taken ?Type furosemide 20 mg tablet 20 mg PO 2200 fluid 08/28/18 08/10/24 History furosemide 40 mg tablet 40 mg PO BREAKFAST fluid 01/1408/10/24 History oxybutynin chloride 15 mg 15 mg PO DAILY bladder 11/1108/10/24 History tablet,extended release 24 hr acetaminophen 500 mg tablet 1,000 mg PO TID PRN PRN Pa in Or 02/12/20 08/11/24 History Fever trazodone 100 mg tablet 100 mg PO QHS sleep 01/19/21 08/10/24 History atorvastatin 80 mg tablet 80 mg PO DAILY cholesterol 0 01/29/21 08/10/24 History pen needle, diabetic 32 gauge x #400 ea 03/05/21 Unkno wn Rx (BD Ultra-Fine Hope Pen Needle) lisinopril 5 mg tablet 2.5 mg (1/2 x 5 mg) PO DAILY #90 01/21/22 08/10/24 Rx tabs pen needle, diabetic 32 gauge x #350 ea 09/01/22 Unkno wn Rx (BD Ultra-Fine Hope Pen Needle) loratadine 10 mg tablet (Allergy 10 mg PO DAILY Antigi stamine 11/07/23 08/10/24 History Relief (loratadine)) propranolol 20 mg tablet 20 mg PO BID Beta Pan 08/10/24 History insulin aspart See Rx Instructions subcut T ID 02/10/24 08/10/24 History (niacinamide)(U-100) 100 unit/mL(3 Glucose control mL) subcutaneous pen (Fiasp FlexTouch U-100 Insulin) pregabalin 75 mg capsule 75 mg PO BID Diabetic nerve pain 02/10/24 08/10/24 History ondansetron 4 mg disintegrating 4 mg PO Q8H PRN PRN Na usea #20 tabs 06/09/24 08/11/24 Rx tablet promethazine 25 mg tablet 25 mg PO TID PRN nausea and 07/31/24 08/01/24 Rx vomiting #20 tabs divalproex 500 mg tablet,delayed 500 mg PO QHS Migrain e Headaches 08/11/24 08/10/24 History release insulin glargine 100 unit/mL (3 40 unit subcut QHS dm 08/11/24 08/10/24 History mL) subcutaneous pen (Lantus Solostar U-100 Insulin) omeprazole 20 mg capsule,delayed 20 mg PO DAILY PPI 08/10/24 History release Allergy/AdvReac Type Severity Reaction Status Date / Time Cephalosporins Allergy Severe Anaphylaxis Verified 08/12/24 00:44 piperacillin (From Zosyn) Allergy Intermediate Hives Verified 08/12/24 00:44 ceftriaxone (From Rocephin) Allergy Anaphylaxis Verified 08/12/24 00:44 mushroom Allergy Anaphylaxis Verified 08/12/24 00:44 peanut Allergy Anaphylaxis Verified 08/12/24 00:44 tazobactam (From Zosyn) Allergy NEEDS Verified 08/12/24 00:44 FOLLOW-UP fentanyl AdvReac Low blood Verified 08/12/24 00:44 pressure gabapentin AdvReac Other Verified 08/12/24 00:44 Gadolinium-MRI Contrast AdvReac Vomiting Verified 08/12/24 00:44 Medium Latex, Natural Rubber AdvReac Rash Verified 08/12/24 00:44 vancomycin AdvReac Rash Verified 08/12/24 00:44 Family History Mother CVA (cerebral vascular accident) Thyroid disorder Diabetes Hypertension Heart disease Hyperlipidemia Myocardial infarction, Onset Age: 54 mother had diabetes Father Cancer skin Grandmother Cancer liver Other Arthritis Skin cancer Surgical History S/P colostomy S/P thyroid biopsy (~11/06/19) history insertion suprapubic catheter Status post gastric surgery Hx of foot surgery Hx of ventral hernia repair History of spinal surgery History of cholecystectomy History of dilation and curettage Social History household members: significant other Smoking Status: Never smoker alcohol intake: current substance use type: does not use ROS ROS Narrative Review of Systems: Constitutional: Patient admits to fever and chills with malaise as per HPI. Eyes: Patient denies changes in vision or discharge from eyes. ENT: Patient denies runny nose, sore throat or ear pain. Resp: Patient denies shortness of breath or cough. CV: Patient denies chest pain, palpitations or heart racing. GI: Patient admits to nausea and vomiting with bilious emesis but she denies diarrhea or constipation. : Patient denies dysuria or hematuria. MSK: Patient admits to generalized weakness with moderate persistent pain in herLeft lower extremity as per HPI. Skin: Patient admits to circumferential redness of her Left lower extremity fromthe knee down to the foot. Psych: Patient denies symptoms of uncontrolled depression or anxiety. Neuro: Patient denies headache, paresthesias or focal neurologic deficits. Allergy: Patient denies lip swelling, tongue swelling or urticaria. Hematology: Patient denies easy bleeding or easy bruisability. Endocrinology: Patient admits to persistent hyperglycemia in the ~200-300 mg/dL range as per HPI. 14 point ROS otherwise negative except for positives noted above in HPI. Vital Signs Vital Signs Vital Signs: 08/11/24 21:26 08/11/24 21:29 08/11/24 21:36 Temperature 101.3 F H 101.3 F H Temperature Source Oral Oral Pulse Rate 107 H 107 H 101 H Respiratory Rate 20 H 20 H 14 Blood Pressure 115/71 115/71 131/80 H Blood Pressure Mean 85 85 97 Pulse Ox 100 100 98 Oxygen Delivery Method Room Air Room Air Room Air 08/11/24 22:29 Temperature 100.1 F H Temperature Source Oral Pulse Rate 97 Respiratory Rate 25 H Blood Pressure 138/82 H Blood Pressure Mean 100 Pulse Ox 92 Oxygen Delivery Method Room Air Weight Weight: 220 lb 7.396 oz Body Mass Index (BMI) 41.6 Physical Exam Const alert, oriented x3 and no apparent distress Constitutional Narrative: Morbidly obese with ill appearance. General Appearance: cooperative HEENT normocephalic, head/scalp atraumatic, hearing grossly normal bilaterally and moist oral mucous membranes Eyes PERRL, EOMs intact bilaterally and conjunctivae normal Neck no lymphadenopathy, supple and no JVD Resp normal respiratory effort, no retractions, no use of accessory muscles and clearto auscultation bilaterally Cardio regular rate and regular rhythm Cardio Narrative: Tachycardia in the ~108 bpm range noted. GI normal to inspection, nondistended, normoactive bowel sounds, soft to palpation,non-tender and non-distended GI Narrative: Morbidly obese. Extremity Extremity Narrative: Patient has circumferential severe erythema of the Left lower extremity from theknee to the ankle with tenderness to touch. Patient was noted to have an ~11mm wound in Left heel. Skin Skin Narrative: Patient has circumferential severe erythema of the Left lower extremity from theknee to the ankle with tenderness to touch. Patient was noted to have an ~11mm wound in Left heel. Neuro oriented x3, CN's II-XII intact bilaterally, moves all extremities and no focal motor deficits Sensorium / Orientation: awake, alert, oriented to person, oriented to place andoriented to time Speech: speech normal Psych affect normal Results Medical Records Data Attestation: I reviewed the patient's medical records Lab / Micro Data Attestation: I reviewed the patient's lab results. 08/11/24 21:39 08/12/24 01:25 Labs: Laboratory Results - last 24 hr 08/11/24 21:39: WBC 25.7 H, RBC 4.31, Hgb 13.1, Hct 38.6, MCV 89.6, MCH 30.4, MCHC 33.9, RDW Std Deviation 42.4, RDW Coeff of Claude 12.8, Plt Count 237, MPV 10.0, Immature Gran % (Auto) 1.200 H, Neut % (Auto) 87.4 H, Lymph % (Auto) 7.8 L, [place] % (Auto) 3.3, Eos % (Auto) 0.0, Baso % (Auto) 0.3, Absolute Neuts (auto) 22.5 H, Absolute Lymphs (auto) 2.00, Nucleated RBC % 0, Differential Comment SEECOMMENT, Platelet Estimate ADEQUATE, RBC Morphology N CHROM, Anisocytosis RARE, Macrocytosis RARE, Sodium 127 L, Potassium 4.5, Chloride 91 L, Carbon Dioxide 18.7 L, Anion Gap 17 H, BUN 12, Creatinine 1.19, Estim Creat Clear Calc 66.77, Est GFR (MDRD) Non-Af 59 L, BUN/Creatinine Ratio 9.7 L, Glucose 294 H, Calcium 9.7 Imaging [facility] Imaging Services [address], [place] [id number] Extremity Lower WITH Contrast MR#: [id number] Acct: [id number] Name: DEBBY BAILON Rep #: [id number] : 1980 F 43 From: Falguni Castillo DO PCP: Dr. Will Brannon MD Status: ADM IN Study: Extremity Lower WITH Contrast Date of Exam: 08/12/24 Exam# [id number] Ordering Dr: Ramana Rose DO PROCEDURE: CT of the left tibia/fibula. REASON FOR EXAM: SUSPECTED OSTEOMYELITIS. Increased redness, pain, fever. Noncompliant diabetic. TECHNIQUE: After the intravenous administration of 95 cc Isovue-300, contiguous axial CT images were obtained through the left tibia/fibula. Sagittal and coronal reformats were created. One or more dose reduction techniques were used (e.g., Automated exposure control, adjustment of the mA and/or kV according to patient size, use of iterative reconstruction technique). RADIATION DOSE SUMMARY: DLP: 802.78 mGycm COMPARISON: Left foot radiographs 07/31/2024. FINDINGS: The left tibia and fibula are intact. No acute fracture or gross bony destructive process of the left tibia/fibula. Included portions of the left foot and ankle, as well as the left knee, are intact. There is some skin thickening of the left tibia/fibula region, as well as induration of the underlying subcutaneous fat. No discrete drainable fluid collection is demonstrated. On the posterior left heel region, images 184-186, possible 11 mm wound, with possible underlying 3.5 x 1.4 cm fluid collection on image 9 of the sagittal reformats. There is significant atrophy of the left calf musculature. CT/Extremity Lower WITH Contrast IMPRESSION: No acute bony abnormality or gross bony destructive process of the left tibia/fibula. There are areas of skin thickening and induration of the underlying subcutaneousfat, suggesting cellulitis, greatest in the left heel region. At the posterior margin of the left heel, there appears to be 11 mm skin defect/wound with possible underlying 3.5 x 1.4 cm fluid collection/abscess. Suggest correlation with clinical exam findings. Reading Location: [place] CC: Dr. Ramana Rose DO; Dr. Will Brannon MD ~ Social Media Intern: Signed Assessment & Plan Assessment/Plan (1) Sepsis: QUALIFIERS: Sepsis acute organ dysfunction status: unspecified Sepsis type: sepsis due to unspecified organism Qualified Code(s): A41.9 - Sepsis, unspecified organism (2) Abscess of left heel: (3) Cellulitis of left leg: (4) Cellulitis of foot, left: (5) Fever: QUALIFIERS: Fever type: unspecified Qualified Code(s): R50.9 - Fever, unspecified (6) Leukocytosis: QUALIFIERS: Leukocytosis type: unspecified Qualified Code(s): D72.829 - Elevated white blood cell count, unspecified (7) Diabetes mellitus with diabetic polyneuropathy: QUALIFIERS: Diabetes mellitus long-term insulin use: with energy technician use Diabetes mellitus type: type 2 Qualified Code(s): E11.42 - Type 2 diabetes mellitus with diabetic polyneuropathy; 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 Left Lower Extremity Cellulitis extending from the knee to the mid-foot with CT evidence of skin thickening and induration of the underlying subcutaneous fat, suggesting Cellulitis, greatest in the Left heel region and atthe posterior margin of the Left heel, there appears to be an ~11 mm skin defect/wound with possible underlying ~3.5 x ~1.4 cm Fluid Collection/Abscess with Fever of 101.3 ?F, Tachycardia of 107 bpm and Severe Leukocytosis of 25.7K with Left shift-shift of 1.2% present on admission consistent with suspected Sepsis due to outpatient antibiotic treatment failure with oral Bactrim due to suspected MRSA in the setting of a listed allergy to vancomycin (rash) and cephalosporins (anaphylaxis) - Admit to PCU for treatment under the sepsis protocol. Start IV linezolid 600 mg IV twice daily to cover MRSA. Continue IV clindamycin begun in the ER to cover for a wider range of pathogens in case of polymicrobial infection. Give acetaminophen as needed for [id number] (level 1-5/10) pain or fever. Give morphine IV as needed for severe (level 6-10/10) pain. Give ondansetron IV as needed nausea and vomiting. Finally, we will consult can tester on-call see this patient on rounds in the a.m. for further recommendations regarding irrigation and debridement with help appreciated in advance. 2. DM-2; uncontrolled with Hyperglycemia with persistent hyperglycemia between ~200-300 mg/dL in spite of taking her insulin as prescribed with hemoglobin A1c of 11.9% present on admission complicating #1 - ADA diet. FSBS q. AC/HS plus SSI. Continue insulin glargine 30 units sq every evening. Finally, we will consult clinical dietitian to see this patient on rounds in a.m. for further recommendations regarding enhance diabetic teaching with help appreciated in advance. 3. Recent evaluation in the ER here 11 days ago here on July 31, 2024 for complaints of Cellulitis extending from the mid-calf down to the Left foot; withx-rays of the Left foot unremarkable for obvious bony abnormality or evidence ofosteomyelitis with a corresponding leukocytosis of 18.5 K present on admission, for which she was treated with oral Bactrim twice daily x 10 days compounding #1& #2 - Noted. 4. Morbid Obesity; with BMI of 41.7 this admission adding to the burden of disease outlined from #1 - #3 - Weight loss was recommended. Check TSH. This complicates her case may hamper recovery. 5. Diabetic Polyneuropathy; with history of DFU of Left foot and amputation of the great toe - Noted. Maintain pregabalin as previous. 6. Essential hypertension; on lisinopril, propranolol and furosemide - Hold scheduled antihypertensives until infection outlined in #1 is neutralized. 7. Hyperlipidemia; on atorvastatin - Resume statin and check lipid profile. 8. History of sepsis - Noted. 9. History of PSVT - Noted with no evidence of recurrence at this time. 10. History of uninodular goiter; s/p thyroid biopsy (2019) - Noted. Check TSH. 11. CKD; stage II-IIIa - Stable. Patient will be aggressively volume resuscitated with CMP ordered daily to follow trend. 12. Chronic normochromic normocytic anemia - Stable with normal hemoglobin of 13.1 g/dL and MCV of 89.6 fL present on admission. 13. History of UTI - Noted with UA pending at this time. 14. History of renal calculi - Noted. 15. Overactive bladder; on oxybutynin - Continue current treatment. 16. History of hydronephrosis of the Right kidney - Noted. 17. History of neurogenic bladder; with subsequent suprapubic catheter - Noted. 18. History of Manley's palsy - Noted. 19. History of gastric surgery - Noted. 20. History of ventral hernia repair - Stable. 21. History of colostomy - Noted. 22. History of cholecystectomy - Noted. 23. History of D&C - Noted with the sake of completeness. 24. Depression with anxiety and panic attack; on trazodone - Maintain trazodoneas before. 25. History of migraine headaches - Stable with no complaints of headache at this time. 26. History of lipomeningocele - Noted. 27. GERD; on omeprazole - Resume PPI. 28. OA; with DJD and spina bifida of the lumbar spine of the thoracic spine; s/p spinal surgery x2 with chronic back pain - We we will follow pain regimen outlined above in #1. 29. DVT prophylaxis - Lovenox 40 mg SQ twice daily. Total time: Approximately (but not less than) 75 minutes. Update: I was contacted by [facility] and informed that 1/2 cultures of already returned preliminary positive for gram-positive rods in anaerobic bottle. Her UA also came back positive for evidence of Acute Cystitis; without hematuria with initial lactate of 1.6 mmol/L dropping to 1.4 mmol/L on second check. Sepsis Attestation Sepsis Alert: Yes Sepsis Attestation: Agree w/Sepsis Date exam was performed: 08/12/24 Time exam was performed: 23:45 Possible Source of Sepsis: Skin/soft tissue Supportive Findings: Febrile with initial temperature of 101.3 ?F with tachycardia of 107 bpm in addition to severe leukocytosis of 25.7K with Left shift-shift of 1.2% present on admission consistent with suspected Sepsis due to outpatient antibiotic treatment failure with oral Bactrim due to suspected MRSA with blood cultures returning preliminary +1/2 positive for gram positive rods in anaerobic bottle. Fluid Resuscitation Fluid resuscitation indicated?: Yes Fluid Resuscitation ordered: 30 ml/kg fluid bolus ordered Amount of fluid ordered: 3 Sepsis Note Date exam was performed: 08/12/24 Time exam was performed: 03:45 Sepsis Attestation: Sepsis re-evaluation was performed Response to fluids: Fluid responsive hypotension Charges/Coding Visit Charges Inpatient E&M: 00773 Init Hosp L3 08/12/24 0646 <Electronically signed by Ramana Rose DO> Cosigner Signature (if applicable): CC: Dr. Ramana Rose DO; Dr. Will Brannon MD~ Signed [facility] Work Phone: 1(237) 868-192603-17-2025 History of Present illness Narrative* Josesito Verdin LPN - 08/12/2024 7:49 AM EDT Scan on 08/11/2024 11:21 PM by Provider, CAMDEN Navarro: Consultation - [facility] Discharge summary Author Kevin Barcenas [facility] Note Date/Time August 11, 2024 11: 11pm [facility] Medical Records Department [address] [place] [address] Emergency Department Summary 08/11/24 MR#: [id number] Acct: [id number] Name: DEBBY BAILON Rep #:[id number] : 1980 43 From: Kevin Barcenas MD PCP: Dr. Will Brannon MD Status:ADM IN Location: [place] [address] HPI History of Present Illness Chief Complaint: Cellulitis Detail of Chief Complaint: Left lower extremity cellulitis. Informant: patient and spouse/S.O. Onset/Context/Timing Onset: Today Current Severity: Moderate Maximum Severity: Moderate Narrative Narrative: 43-year-old female history of diabetes, chronic kidney disease, colostomy. Patient was diagnosed and treated on July 31 for left lower extremity cellulitis. She was on Bactrim twice a day for 10 days. Said it was much better. He was getting better looked really good she did today she was feeling not well. And noticed that her left leg below the knee down to her foot was redand swollen again. She developed a fever as high as 1044. Took Tylenol prior to arrival. Has had nausea vomiting. Said her blood sugars have been 2-300. Prior similar symptoms: Yes Recent Illness/Hospitalization: No PFSH [facility] Medical History Suprapubic catheter Noncompliance with diabetes treatment Diabetes mellitus with diabetic polyneuropathy Depression Type 2 diabetes mellitus with foot ulcer Open wound of left foot Microalbuminuria CKD (chronic kidney disease) 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 Diabetic polyneuropathy Non-smoker Weakness Hyperglycemia Sepsis Urinary tract infection Diabetic foot infection Urinary tract infection Thyroid cyst Hematochezia Chronic nausea Insomnia PSVT (paroxysmal supraventricular tachycardia) Panic attacks Hyperlipidemia Lipomeningocele History of kidney stones Essential hypertension Dysthymic disorder DJD (degenerative joint disease) of thoracic spine Arthritis Anxiety and depression Uninodular goiter Non-compliance UTI (urinary tract infection) Cellulitis of left lower extremity Infection of bladder catheter Ulcer of left heel and midfoot with fat layer exposed Lower extremity edema Delayed wound healing Type 2 diabetes mellitus with diabetic polyneuropathy Diabetic ulcer of left heel with fat layer exposed Normochromic normocytic anemia Constipation Neurogenic bowel Neurogenic bladder Hydronephrosis of right kidney UTI (urinary tract infection) Diabetes mellitus, type II Morbid obesity with BMI of 40.0-44.9, adult Spina bifida aperta of lumbar spine History of migraine Chronic back pain Home Medications ?Medication ?Instructions ?Recorded ?Last Taken ?Type furosemide 20 mg tablet 20 mg PO 2200 fluid 08/28/18 10/06/23 History furosemide 40 mg tablet 40 mg PO BREAKFAST fluid 01/1410/06/23 History oxybutynin chloride 15 mg 15 mg PO DAILY bladder 11/1110/06/23 History tablet,extended release 24 hr acetaminophen 500 mg tablet 1,000 mg PO TID PRN PRN Pa in Or 02/12/20 09/24/20 19:24 History Fever trazodone 100 mg tablet 100 mg PO QHS sleep 01/19/21 10/06/23 History atorvastatin 80 mg tablet 80 mg PO DAILY cholesterol 0 01/29/21 10/06/23 History pen needle, diabetic 32 gauge x #400 ea 03/05/21 Unkno wn Rx 5/32 (BD Ultra-Fine Hope Pen Needle) lisinopril 5 mg tablet 2.5 mg (1/2 x 5 mg) PO DAILY #90 01/21/22 10/06/23 Rx tabs pen needle, diabetic 32 gauge x #350 ea 09/01/22 Unkno wn Rx 532 (BD Ultra-Fine Hope Pen Needle) loratadine 10 mg tablet (Allergy 10 mg PO DAILY Unknown History Relief (loratadine)) propranolol 20 mg tablet 20 mg PO BID 11/07/23 Unknow n History insulin aspart See Rx Instructions subcut T ID 02/10/24 Unknown History (niacinamide)(U-100) 100 unit/mL(3 mL) subcutaneous pen (Fiasp FlexTouch U-100 Insulin) pregabalin 75 mg capsule 75 mg PO BID 02/10/24 Unknow n History ondansetron 4 mg disintegrating 4 mg PO Q8H PRN PRN Na usea #20 tabs 06/09/24 Unknown Rx tablet promethazine 25 mg tablet 25 mg PO TID PRN nausea and 07/31/24 Unknown Rx vomiting #20 tabs divalproex 500 mg tablet,delayed 500 mg PO QHS 5 Unknown History release insulin glargine 100 unit/mL (3 40 unit subcut QHS dm 08/11/24 Unknown History mL) subcutaneous pen (Lantus Solostar U-100 Insulin) omeprazole 20 mg capsule,delayed 20 mg PO DAILY Unknown History release Allergy/AdvReac Type Severity Reaction Status Date / Time Cephalosporins Allergy Severe Anaphylaxis Verified 08/11/24 21:26 piperacillin (From Zosyn) Allergy Intermediate Hives Verified 08/11/24 21:26 ceftriaxone (From Rocephin) Allergy Anaphylaxis Verified 08/11/24 21:26 mushroom Allergy Anaphylaxis Verified 08/11/24 21:26 peanut Allergy Anaphylaxis Verified 08/11/24 21:26 tazobactam (From Zosyn) Allergy NEEDS Verified 08/11/24 21:26 FOLLOW-UP fentanyl AdvReac Low blood Verified 08/11/24 21:26 pressure gabapentin AdvReac Other Verified 08/11/24 21:26 Gadolinium-MRI Contrast AdvReac Vomiting Verified 08/11/24 21:26 Medium Latex, Natural Rubber AdvReac Rash Verified 08/11/24 21:26 vancomycin AdvReac Rash Verified 08/11/24 21:26 Family History Mother CVA (cerebral vascular accident) Thyroid disorder Diabetes Hypertension Heart disease Hyperlipidemia Myocardial infarction, Onset Age: 54 mother had diabetes Father Cancer skin Grandmother Cancer liver Other Arthritis Skin cancer Surgical History S/P colostomy S/P thyroid biopsy (~11/06/19) history insertion suprapubic catheter Status post gastric surgery Hx of foot surgery Hx of ventral hernia repair History of spinal surgery History of cholecystectomy History of dilation and curettage Social History household members: significant other Smoking Status: Never smoker alcohol intake: current substance use type: does not use ROS ROS ED ROS Narrative Fever. Nausea vomiting. Left leg cellulitis. Constitutional Constitutional ED: Reports chills and fever(s) Eyes Eyes: Denies blurry vision ENT ENT ED: Denies ear pain Cardiovascular Cardiovascular: Denies chest pain Respiratory/Chest Respiratory/Chest: Denies cough or dyspnea Gastrointestinal Gastrointestinal: Denies abdominal pain Genitourinary Genitourinary ED: Denies dysuria or hematuria Musculoskeletal Musculoskeletal: Denies arthralgias or back pain Integumentary Reports rash; Denies abscess or Abrasions Neurologic Neurologic: Denies headache(s) Psychiatric Psychiatric: Denies anxiety or depression Endocrine Endocrinology: Denies cold intolerance Hematologic/Lymphatic Hematologic/Lymphatic: Reports none Allergic/Immunologic Allergic/Immunologic ED: Denies mouth swelling, tongue swelling or urticaria EXAM Physical Exam Narrative Exam Narrative: 43-year-old female vital signs stable but she is febrile at 101.3 tachycardic 107. She does not look septic or toxic currently. Sitting upright in bed. H EENT exam pupils round reactive light. Dry mucous membranes. Neck nontender nolymphadenopathy. No meningismus. Lungs clear to auscultation bilaterally. Heart tachycardic rate about 105 no murmur. Chest wall nontender. No rash. Abdomen soft nondistended normal bowel sounds without peritoneal signs. Colostomy. Moving all 4 extremities. Left lower leg below the knee to the ankle she has circumferential cellulitis tender to palpation. No slough. Left foot is normal dorsi and plantarflexion. Normal strength. 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 Lower extremity nontender. Normal range of motion. No cellulitis. Neurologically she is awakeand alert. Answering questions following commands. No focal motor deficits. Const Vital Signs: 08/11/24 21:26 08/11/24 21:29 08/11/24 21:36 Temperature 101.3 F H 101.3 F H Temperature Source Oral Oral Pulse Rate 107 H 107 H 101 H Respiratory Rate 20 H 20 H 14 Blood Pressure 115/71 115/71 131/80 H Blood Pressure Mean 85 85 97 Pulse Ox 100 100 98 Oxygen Delivery Method Room Air Room Air Room Air 08/11/24 22:29 Temperature 100.1 F H Temperature Source Oral Pulse Rate 97 Respiratory Rate 25 H Blood Pressure 138/82 H Blood Pressure Mean 100 Pulse Ox 92 Oxygen Delivery Method Room Air Positive well nourished and well developed; Negative for cachectic, contracturesor unkempt General Appearance ED: well developed and NAD; Negative for unkempt, cachectic, contractures, cyanotic, diaphoretic or pallor Nutritional Appearance: Negative for cachectic HEENT Reports moist mucous membranes Negative for trauma or tenderness Eyes PERRL and EOMs intact bilaterally General Eye ED: Negative for pale conjunctiva or scleral icterus Neck no lymphadenopathy, supple and no JVD General: Negative for tenderness Lymph Lymphatic: Negative for other Chest Wall inspection of chest normal and palpation of chest normal Resp normal respiratory effort and clear to auscultation bilaterally Effort and Inspection: Negative for retractions Auscultation: Negative for rales, rhonchi, wheezes or diminished lung sounds Cardio regular rhythm, S1 normal heart sound, S2 normal heart sound and no murmurs; Negative for regular rate Rate: tachycardic GI normal to inspection, nondistended, normoactive bowel sounds, non-tender, non-distended and no masses Auscultation: normoactive bowel sounds Palpation: soft; Negative for tender, guarding or rebound tenderness present Back/Spine no CVA tenderness General Back: Negative for CVA tenderness Cervical Spine: Negative for cervical spine tenderness Thoracic Spine / Upper Back: Negative for thoracic spinal tenderness or paraspinal muscle tenderness Lumbar Spine / Lower Back: Negative for lumbar spinal tenderness Extremity Negative for normal to inspection Extremity Narrative: Left lower extremity cellulitis from below the knee to the ankle. Circumferential. Tender to the touch. No sloughing of skin. No bruising. No crepitance. Clinically appears to be cellulitis. General Extremety ED: Yes edema and tenderness General Extremity: edema Neuro oriented x3 and CN's II-XII intact bilaterally Sensorium / Orientation: alert; Negative for orientation impaired, lethargic or stuporous Motor Exam: strength 5/5 throughout Psych mental status grossly normal Appearance: Negative for unkempt Skin No no rashes or lesions noted Skin Narrative: Left lower extremity cellulitis. General Skin Exam: Negative for jaundice or pallor Rashes: rashes noted MDM MDM MDM Narrative Medical decision making narrative: 43-year-old female history of diabetes was treated outpatient for cellulitis with Bactrim she was doing great and it was much better and today all of a sudden got much worse. She is now febrile with nausea and vomiting and has cellulitis of her left lower extremity. She has multiple drug allergies she will be started on IV clindamycin. Screening labs and blood cultures to be obtained. Due to the extensiveness of the cellulitis I think she will need to be admitted. Plus having recently gone through outpatient therapy. Treated with morphine for pain and Zofran for nausea. Repeat exam at 10:40 PM patient doing well. Tachycardia is improving with the IV fluids. She will be given Tylenol for the fever. The cellulitic rash has not gotten any worse. The antibiotic clindamycin is running. The hospitalist is on page for admission. History & Record Review Discussion w/independent historian: Patient and Family Additional record(s) reviewed:: Prior inpatient record, Prior outpatient record,Prior ED visit, Prior labs and No prior records Lab Data Lab results narrative: CBC shows white count of 25,700. H&H 13 and 38. Platelets 237. 87% neutrophils. Chemistries show a sodium of 127. Gap of 17. BUN and creatinine 12 and 1.1. Glucose 294. Labs: Laboratory Results - last 24 hr 08/11/24 21:39 WBC 25.7 H RBC 4.31 Hgb 13.1 Hct 38.6 MCV 89.6 MCH 30.4 MCHC 33.9 RDW Std Deviation 42.4 RDW Coeff of Claude 12.8 Plt Count 237 MPV 10.0 Immature Gran % (Auto) 1.200 H Neut % (Auto) 87.4 H Lymph % (Auto) 7.8 L [place] % (Auto) 3.3 Eos % (Auto) 0.0 Baso % (Auto) 0.3 Absolute Neuts (auto) 22.5 H Absolute Lymphs (auto) 2.00 Nucleated RBC % 0 Differential Comment SEE COMMENT Platelet Estimate ADEQUATE RBC Morphology N CHROM Anisocytosis RARE Macrocytosis RARE Sodium 127 L Potassium 4.5 Chloride 91 L Carbon Dioxide 18.7 L Anion Gap 17 H BUN 12 Creatinine 1.19 Estim Creat Clear Calc 66.77 Est GFR (MDRD) Non-Af 59 L BUN/Creatinine Ratio 9.7 L Glucose 294 H Calcium 9.7 Discharge Plan Dx/Rx/DC Orders Clinical Impression: Cellulitis of left leg, History of diabetes mellitus, History of chronic kidneydisease, Leukocytosis Disposition Disposition: [facility] What to do if you have Problems For any increased pain, shortness of breath, bleeding, nausea or vomiting, chestpain, or any unexpected problems, contact your Primary Care Provider. Call [facility] ([phone]) or report to the closest Emergency Room. Call 911 if necessary. 08/11/24 2311 <Electronically signed by Kevin Barcenas MD> Cosigner Signature (if applicable): CC: Dr. Will Brannon MD ~ Signed [facility] Work Phone: 1(401) 359-803903-17-2025 Evaluation note* Diagnosis Onset Date Resolution Status Admit Date Abscess of left heel acute [facility] 2024 10:51pm Cellulitis of foot, left acute August 11, 2024 10:51pm Cellulitis of left leg acute [facility] 2024 10:51pm Cutaneous abscess of left foot acute August 11, 2024 10:51pm Diabetes mellitus with diabe tic polyneuropathy acute August 11, 2024 10:51pm Fever acute August 11 10:51pm Leukocytosis acute August 11, 2024 10:51pm Morbid obesity with BMI of 40.0-44.9, adult acute August 11 10:51pm Noncompliance with diabetes treatment acute August 11, 2024 10:51pm Sepsis acute August 11 10:51pm Therapy failure due to antibiotic resistance acute July 10:51pm Type 2 diabetes mellitus wit h foot ulcer acute August 11, 2024 10:51pm Non-pressure chronic ulcer o f other part of left foot with necrosis of muscle chronic August 11 025 10:51pm [facility] Work Phone: 1(511) 491-543803-17-2025 Evaluation note* Diagnosis Onset Date Resolution Status Admit Date Abscess of left heel inactive [facility] 2024 10:51pm Cellulitis of foot, left inactive August 11, 2024 10:51pm Cellulitis of left leg inactive [facility] 2024 10:51pm Cutaneous abscess of left foot inact yordan August 11, 2024 10:51pm Diabetes mellitus with diabe tic polyneuropathy inactive August 11, 2024 10:51pm Fever inactive August 11 10:51pm Leukocytosis inactive August 11, 2024 10:51pm Morbid obesity with BMI of 40.0-44.9, adult inactive August 11 10:51pm Non-pressure chronic ulcer o f other part of left foot with necrosis of muscle inactive August 11 025 10:51pm Noncompliance with diabetes treatment inactive August 11, 2024 10:51pm Sepsis inactive August 11 10:51pm Therapy failure due to antibiotic resistance inactive July 10:51pm Type 2 diabetes mellitus wit h foot ulcer inactive August 11, 2024 10:51pm [facility] Work Phone: 1(756) 480-222803-17-2025 Radiology Diagnostic study [facility]03-16-2025 Discharge summary Author Kevin Barcenas [facility] Note Date/Time August 11, 2024 11: 11pm [facility] Medical Records Department [address] [place] [address] Emergency Department Summary 08/11/24 MR#: [id number] Acct: [id number] Name: DEBBY BAILON Rep #:[id number] : 1980 43 From: Kevin Barcenas MD PCP: Dr. Will Brannon MD Status:ADM IN Location: MS3 [id number] HPI History of Present Illness Chief Complaint: Cellulitis Detail of Chief Complaint: Left lower extremity cellulitis. Informant: patient and spouse/S.O. Onset/Context/Timing Onset: Today Current Severity: Moderate Maximum Severity: Moderate Narrative Narrative: 43-year-old female history of diabetes, chronic kidney disease, colostomy. Patient was diagnosed and treated on July 31 for left lower extremity cellulitis. She was on Bactrim twice a day for 10 days. Said it was much better. He was getting better looked really good she did today she was feeling not well. And noticed that her left leg below the knee down to her foot was redand swollen again. She developed a fever as high as 1044. Took Tylenol prior to arrival. Has had nausea vomiting. Said her blood sugars have been 2-300. 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 Diabetic polyneuropathy Non-smoker Weakness Hyperglycemia Sepsis Urinary tract infection Diabetic foot infection Urinary tract infection Thyroid cyst Hematochezia Chronic nausea Insomnia PSVT (paroxysmal supraventricular tachycardia) Panic attacks Hyperlipidemia Lipomeningocele History of kidney stones Essential hypertension Dysthymic disorder DJD (degenerative joint disease) of thoracic spine Arthritis Anxiety and depression Uninodular goiter Non-compliance UTI (urinary tract infection) Cellulitis of left lower extremity Infection of bladder catheter Ulcer of left heel and midfoot with fat layer exposed Lower extremity edema Delayed wound healing Type 2 diabetes mellitus with diabetic polyneuropathy Diabetic ulcer of left heel with fat layer exposed Normochromic normocytic anemia Constipation Neurogenic bowel Neurogenic bladder Hydronephrosis of right kidney UTI (urinary tract infection) Diabetes mellitus, type II Morbid obesity with BMI of 40.0-44.9, adult Spina bifida aperta of lumbar spine History of migraine Chronic back pain Home Medications ?Medication ?Instructions ?Recorded ?Last Taken ?Type furosemide 20 mg tablet 20 mg PO 2200 fluid 08/28/18 10/06/23 History furosemide 40 mg tablet 40 mg PO BREAKFAST fluid 01/1410/06/23 History oxybutynin chloride 15 mg 15 mg PO DAILY bladder 11/1110/06/23 History tablet,extended release 24 hr acetaminophen 500 mg tablet 1,000 mg PO TID PRN PRN Pa in Or 02/12/20 09/24/20 19:24 History Fever trazodone 100 mg tablet 100 mg PO QHS sleep 01/19/21 10/06/23 History atorvastatin 80 mg tablet 80 mg PO DAILY cholesterol 0 01/29/21 10/06/23 History pen needle, diabetic 32 gauge x #400 ea 03/05/21 Unkno wn Rx 532 (BD Ultra-Fine Hope Pen Needle) lisinopril 5 mg tablet 2.5 mg (1/2 x 5 mg) PO DAILY #90 01/21/22 10/06/23 Rx tabs pen needle, diabetic 32 gauge x #350 ea 09/01/22 Unkno wn Rx 5/32 (BD Ultra-Fine Hope Pen Needle) loratadine 10 mg tablet (Allergy 10 mg PO DAILY Unknown History Relief (loratadine)) propranolol 20 mg tablet 20 mg PO BID 11/07/23 Unknow n History insulin aspart See Rx Instructions subcut T ID 02/10/24 Unknown History (niacinamide)(U-100) 100 unit/mL(3 mL) subcutaneous pen (Fiasp FlexTouch U-100 Insulin) pregabalin 75 mg capsule 75 mg PO BID 02/10/24 Unknow n History ondansetron 4 mg disintegrating 4 mg PO Q8H PRN PRN Na usea #20 tabs 06/09/24 Unknown Rx tablet promethazine 25 mg tablet 25 mg PO TID PRN nausea and 07/31/24 Unknown Rx vomiting #20 tabs divalproex 500 mg tablet,delayed 500 mg PO QHS 5 Unknown History release insulin glargine 100 unit/mL (3 40 unit subcut QHS dm 08/11/24 Unknown History mL) subcutaneous pen (Lantus Solostar U-100 Insulin) omeprazole 20 mg capsule,delayed 20 mg PO DAILY Unknown History release Allergy/AdvReac Type Severity Reaction Status Date / Time Cephalosporins Allergy Severe Anaphylaxis Verified 08/11/24 21:26 piperacillin (From Zosyn) Allergy Intermediate Hives Verified 08/11/24 21:26 ceftriaxone (From Rocephin) Allergy Anaphylaxis Verified 08/11/24 21:26 mushroom Allergy Anaphylaxis Verified 08/11/24 21:26 peanut Allergy Anaphylaxis Verified 08/11/24 21:26 tazobactam (From Zosyn) Allergy NEEDS Verified 08/11/24 21:26 FOLLOW-UP fentanyl AdvReac Low blood Verified 08/11/24 21:26 pressure gabapentin AdvReac Other Verified 08/11/24 21:26 Gadolinium-MRI Contrast AdvReac Vomiting Verified 08/11/24 21:26 Medium Latex, Natural Rubber AdvReac Rash Verified 08/11/24 21:26 vancomycin AdvReac Rash Verified 08/11/24 21:26 Family History Mother CVA (cerebral vascular accident) Thyroid disorder Diabetes Hypertension Heart disease Hyperlipidemia Myocardial infarction, Onset Age: 54 mother had diabetes Father Cancer skin Grandmother Cancer liver Other Arthritis Skin cancer Surgical History S/P colostomy S/P thyroid biopsy (~11/06/19) history insertion suprapubic catheter Status post gastric surgery Hx of foot surgery Hx of ventral hernia repair History of spinal surgery History of cholecystectomy History of dilation and curettage Social History household members: significant other Smoking Status: Never smoker alcohol intake: current substance use type: does not use ROS ROS ED ROS Narrative Fever. Nausea vomiting. Left leg cellulitis. Constitutional Constitutional ED: Reports chills and fever(s) Eyes Eyes: Denies blurry vision ENT ENT ED: Denies ear pain Cardiovascular Cardiovascular: Denies chest pain Respiratory/Chest Respiratory/Chest: Denies cough or dyspnea Gastrointestinal Gastrointestinal: Denies abdominal pain Genitourinary Genitourinary ED: Denies dysuria or hematuria Musculoskeletal Musculoskeletal: Denies arthralgias or back pain Integumentary Reports rash; Denies abscess or Abrasions Neurologic Neurologic: Denies headache(s) Psychiatric Psychiatric: Denies anxiety or depression Endocrine Endocrinology: Denies cold intolerance Hematologic/Lymphatic Hematologic/Lymphatic: Reports none Allergic/Immunologic Allergic/Immunologic ED: Denies mouth swelling, tongue swelling or urticaria EXAM Physical Exam Narrative Exam Narrative: 43-year-old female vital signs stable but she is febrile at 101.3 tachycardic 107. She does not look septic or toxic currently. Sitting upright in bed. H EENT exam pupils round reactive light. Dry mucous membranes. Neck nontender nolymphadenopathy. No meningismus. Lungs clear to auscultation bilaterally. Heart tachycardic rate about 105 no murmur. Chest wall nontender. No rash. Abdomen soft nondistended normal bowel sounds without peritoneal signs. Colostomy. Moving all 4 extremities. Left lower leg below the knee to the ankle she has circumferential cellulitis tender to palpation. No slough. Left foot is normal dorsi and plantarflexion. Normal strength. 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 Lower extremity nontender. Normal range of motion. No cellulitis. Neurologically she is awakeand alert. Answering questions following commands. No focal motor deficits. Const Vital Signs: 08/11/24 21:26 08/11/24 21:29 08/11/24 21:36 Temperature 101.3 F H 101.3 F H Temperature Source Oral Oral Pulse Rate 107 H 107 H 101 H Respiratory Rate 20 H 20 H 14 Blood Pressure 115/71 115/71 131/80 H Blood Pressure Mean 85 85 97 Pulse Ox 100 100 98 Oxygen Delivery Method Room Air Room Air Room Air 08/11/24 22:29 Temperature 100.1 F H Temperature Source Oral Pulse Rate 97 Respiratory Rate 25 H Blood Pressure 138/82 H Blood Pressure Mean 100 Pulse Ox 92 Oxygen Delivery Method Room Air Positive well nourished and well developed; Negative for cachectic, contracturesor unkempt General Appearance ED: well developed and NAD; Negative for unkempt, cachectic, contractures, cyanotic, diaphoretic or pallor Nutritional Appearance: Negative for cachectic HEENT Reports moist mucous membranes Negative for trauma or tenderness Eyes PERRL and EOMs intact bilaterally General Eye ED: Negative for pale conjunctiva or scleral icterus Neck no lymphadenopathy, supple and no JVD General: Negative for tenderness Lymph Lymphatic: Negative for other Chest Wall inspection of chest normal and palpation of chest normal Resp normal respiratory effort and clear to auscultation bilaterally Effort and Inspection: Negative for retractions Auscultation: Negative for rales, rhonchi, wheezes or diminished lung sounds Cardio regular rhythm, S1 normal heart sound, S2 normal heart sound and no murmurs; Negative for regular rate Rate: tachycardic GI normal to inspection, nondistended, normoactive bowel sounds, non-tender, non-distended and no masses Auscultation: normoactive bowel sounds Palpation: soft; Negative for tender, guarding or rebound tenderness present Back/Spine no CVA tenderness General Back: Negative for CVA tenderness Cervical Spine: Negative for cervical spine tenderness Thoracic Spine / Upper Back: Negative for thoracic spinal tenderness or paraspinal muscle tenderness Lumbar Spine / Lower Back: Negative for lumbar spinal tenderness Extremity Negative for normal to inspection Extremity Narrative: Left lower extremity cellulitis from below the knee to the ankle. Circumferential. Tender to the touch. No sloughing of skin. No bruising. No crepitance. Clinically appears to be cellulitis. General Extremety ED: Yes edema and tenderness General Extremity: edema Neuro oriented x3 and CN's II-XII intact bilaterally Sensorium / Orientation: alert; Negative for orientation impaired, lethargic or stuporous Motor Exam: strength 5/5 throughout Psych mental status grossly normal Appearance: Negative for unkempt Skin No no rashes or lesions noted Skin Narrative: Left lower extremity cellulitis. General Skin Exam: Negative for jaundice or pallor Rashes: rashes noted MDM MDM MDM Narrative Medical decision making narrative: 43-year-old female history of diabetes was treated outpatient for cellulitis with Bactrim she was doing great and it was much better and today all of a sudden got much worse. She is now febrile with nausea and vomiting and has cellulitis of her left lower extremity. She has multiple drug allergies she will be started on IV clindamycin. Screening labs and blood cultures to be obtained. Due to the extensiveness of the cellulitis I think she will need to be admitted. Plus having recently gone through outpatient therapy. Treated with morphine for pain and Zofran for nausea. Repeat exam at 10:40 PM patient doing well. Tachycardia is improving with the IV fluids. She will be given Tylenol for the fever. The cellulitic rash has not gotten any worse. The antibiotic clindamycin is running. The hospitalist is on page for admission. History & Record Review Discussion w/independent historian: Patient and Family Additional record(s) reviewed:: Prior inpatient record, Prior outpatient record,Prior ED visit, Prior labs and No prior records Lab Data Lab results narrative: CBC shows white count of 25,700. H&H 13 and 38. Platelets 237. 87% neutrophils. Chemistries show a sodium of 127. Gap of 17. BUN and creatinine 12 and 1.1. Glucose 294. Labs: Laboratory Results - last 24 hr 08/11/24 21:39 WBC 25.7 H RBC 4.31 Hgb 13.1 Hct 38.6 MCV 89.6 MCH 30.4 MCHC 33.9 RDW Std Deviation 42.4 RDW Coeff of Claude 12.8 Plt Count 237 MPV 10.0 Immature Gran % (Auto) 1.200 H Neut % (Auto) 87.4 H Lymph % (Auto) 7.8 L [place] % (Auto) 3.3 Eos % (Auto) 0.0 Baso % (Auto) 0.3 Absolute Neuts (auto) 22.5 H Absolute Lymphs (auto) 2.00 Nucleated RBC % 0 Differential Comment SEE COMMENT Platelet Estimate ADEQUATE RBC Morphology N CHROM Anisocytosis RARE Macrocytosis RARE Sodium 127 L Potassium 4.5 Chloride 91 L Carbon Dioxide 18.7 L Anion Gap 17 H BUN 12 Creatinine 1.19 Estim Creat Clear Calc 66.77 Est GFR (MDRD) Non-Af 59 L BUN/Creatinine Ratio 9.7 L Glucose 294 H Calcium 9.7 Discharge Plan Dx/Rx/DC Orders Clinical Impression: Cellulitis of left leg, History of diabetes mellitus, History of chronic kidneydisease, Leukocytosis Disposition Disposition: Acute Care Hospital [facility] What to do if you have Problems For any increased pain, shortness of breath, bleeding, nausea or vomiting, chestpain, or any unexpected problems, contact your Primary Care Provider. Call [facility] ([phone]) or report to the closest Emergency Room. Call 911 if necessary. 08/11/24 2311 <Electronically signed by Kevin Barcenas MD> Cosigner Signature (if applicable): CC: Dr. Will Brannon MD ~ Signed [facility] Work Phone: 1(754) 536-151603-06-2025 History of Present illness Narrative* Josesito Verdin LPN - 08/01/2024 7:38 AM EST Scan on 07/31/2024 10:21 PM by Provider, CAMDEN Navarro: Consultation - Emergency Medicine documented in this encounterOur [facility] History of Present illness Narrative* Naty Haddad LPN - 07/16/2024 3:28 PM EST CC Supra pubic catheter in Place HPI: Debby Bailon is a 43 year old female. The patient is here now for a supra pubic catheter change with diagnosis neurogenic bladder. Procedure: Performed a catheter change. The indwelling supra pubic cook size 16 Fr was removed with very little resistance- catheter tip intact Inserted 16 Fr catheter using aseptic technique. Irrigated with 60 mL 0.9% sodium chloride. Approximately 60 mLs pink return noted throughout. Bulb inflated with 10 mLs prefilled syringes- sterile water. T-Sponge applied to SPT base per patient preference attached to drainage bag. The patient tolerated the procedure well. Patient does not like tubing secured. Assessment/Plan: Successful catheter change. Return for catheter changes as planned. Naty Haddad LPN documented in this encounterOur [facility]02-13-[facility] History of Present illness Narrative* Devin George APRN.BURIAL AGENT - 07/11/2024 4:07 PM EST Chief Complaint Patient presents with: nose bleeds Headache HPI Debby Bailon is a 43 year old female who presents here today for Above Complaints.. Patient presents for continued left sided headache and nose bleeds. Saw neurology on 07/09 and was started on Depakote bridge. Was instructed to proceed to ER if migraine worsened. Patient reports today migraine has worsened and nose bleeds continue. Past medical history, appointments, medications, allergies reviewed. Previous Medical History PAST MEDICAL HISTORY Diagnosis Date Amputation of left great toe (HCC) 06/25/2020 Arthritis started age 19 Bilateral leg edema 07/16/2018 Cervical radiculopathy 05/02/2013 Chronic pain 02/12/[address] (HCC) 09/30/2021 Constipation due to outlet dysfunction 10/07/2021 Cyst of ovary 11/28/2011 Diabetes mellitus with peripheral vascular disease (HCC) 03/29/2023 Diabetic eye exam ([facility]) 06/17/2016 Last done: 01/25/2017 Diabetic eye exam (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 Elevated LFTs 03/11/2020 Essential hypertension 02/21/2019 Fatty liver 03/11/2020 US 10/2019 History of amputation of left great toe (HCC) 06/25/[address] 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 Will monitor. Lipomeningocele, sacral level 09/12/2013 Lumbago 02/12/2015 Major depressive disorder, recurrent, mild (HCC) 03/29/2023 Medicare annual wellness visit, subsequent 02/28/2018 last done: 02/28/2018 Migraine without aura and without status migrainosus, not intractable 10/18/2016 Miscarriage Mixed hyperlipidemia 02/28/2018 Moderate recurrent major depression (HCC) 09/28/2023 Muscle weakness of left lower extremity 08/07/2013 Neck pain 05/02/2013 Neurogenic bladder 02/12/2015 Neurogenic bowel 01/06/2016 Neuropathy 02/12/2015 post back surgery with secondary infection. Seeing Dr. Gregg Non-compliance 09/02/2022 Even stated in endocrine note from 09/01/2022 Numbness and tingling of left arm and leg 08/07/2013 Obesity, Class II, BMI 35-39.9 02/12/2015 Panic attacks Paroxysmal SVT (supraventricular tachycardia) ([facility]) 07/03/2017 Per 48 Hr event monitor 06/30/2017 Primary insomnia 02/17/2016 S/P hernia repair 12/11/2017 Spina bifida (HCC) 01/06/2016 Spinal stenosis of cervical region 06/26/2023 Thyroid cyst 01/01/2018 Complex right sided cysts. US 12/2017, biopsy per Dr. Josue 01/23/2018 benign. Repeat US in a year. 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 nl AMPUTATION TOE,MT-P JT Left 02/11/2020 left big toe CATH, SUPRAPUBIC/CYSTOSCOPIC 11/07/2018 COLOSTOMY 10/01/2021 CYSTOSCOPY,REMV CALCULUS,COMPLIC 11/10/2020 DILATION & CURETTAGE DX&/THER NONOBSTETRIC Dilation & curettage EGD W/O BRSH SPEC VARICIES INJ 03/25/2024 dr josue HERNIA REPAIR W/MESH 2018 LEXISCAN STRESS TEST 07/20/2018 negative NUCLEAR STRESS LEXISCAN (CARD) 10/24/2018 negative PAST SURGICAL HISTORY OF 2010 cholecystectomy PAST SURGICAL HISTORY OF 09/2012 back surgery x2 PAST SURGICAL HISTORY OF Left & 02/2014 foot x2 PAST SURGICAL HISTORY OF 07/2015 ABD procedure; Bowles stoma PAST SURGICAL HISTORY OF 09/30/2021 Laparoscopic end colostomy PAST SURGICAL HISTORY OF Left 01/2021 bone removed left foot REPAIR UMBILICAL HERNIA 12/11/2017 STRESS ECHO 12/09/2019 Negative STRESS TEST 07/18/2017 normal STRESS TEST 03/15/2018 negative THYROID FINE NEEDLE ASPIRATION Right 04/13/2023 right mid thyroid Family History FAMILY HISTORY Problem Relation Age of Onset Arthritis Mother Diabetes Mother Heart Mother Hypertension Mother Lipids Mother Stroke Mother Thyroid Mother Thyroid Father Cancer Father Skin No Known Problems Brother Cancer Maternal Grandmother LIVER CANCER Cancer Maternal Uncle Great Uncle Cancer Maternal Uncle Great Uncle Anesthesia Problems No Family History Patient Allergies ALLERGIES Allergen Reactions Ceftriaxone Anaphylaxis Had skin testing on 12/09 at allergy office which was positive. Also had prior anaphylactic reactionon 09/30/2021. Patient should avoid ceftriaxone and all other cephalosporins. She has tolerated amoxicillin outpatient in the past. Cephalosporins Anaphylaxis Patient had anaphylaxis pre-op on 09/30 when this was given with other induction agents. Patient hadskin testing on 12/09/21 which was positive to ceftriaxone (see separate note from same day). Pleaseavoid all cephalosporins. Mushroom Anaphylaxis Peanut Anaphylaxis Peanuts Anaphylaxis Latex Rash Gabapentin Mental Status Change Patient reports having cognitive/memory issues after taking Mri Contrast [Gadol* GI Upset Current Medications Current Outpatient Medications on File Prior to Visit Medication Sig divalproex DR (DEPAKOTE) 500 mg EC tablet take 2 at bed for 5 days then 1 at bed for 5 days and stop. pregabalin (LYRICA) 75 mg capsule Take 1 capsule by mouth two times a day for 180 days. atorvastatin (LIPITOR) 80 mg tablet Take 1 tablet by mouth once daily. furosemide (LASIX) 20 mg tablet Take 1 tablet by mouth once daily. Take in evening furosemide (LASIX) 40 mg tablet Take 1 tablet by mouth once daily. Take in morning traZODone (DESYREL) 100 mg tablet Take 1 tablet by mouth daily at bedtime. omeprazole (PRILOSEC) 20 mg capsule Take 1 capsule by mouth once daily. Urinary Bag (URINARY LEG BAG) kit Use as directed with suprapublic catheter. Urinary Bag (UROSTOMY NIGHT BAG) misc Urinary Night Bag. Use as directed with suprapublic catheter. insulin aspart, niacinamide, (FIASP FLEXTOUCH U-100 INSULIN) 100 unit/mL (3 mL) pen Inject 20 unitswith meals (three times daily) PLUS SS#2 (2 units for every 50 over 150 PRE MEAL blood sugar) TDD~90 units daily insulin glargine (LANTUS SOLOSTAR U-100 INSULIN) 100 unit/mL (3 mL) Inject 40 units once daily Blood-Glucose Sensor (FREESTYLE ROSA 3 SENSOR) tara CHANGE SENSOR EVERY 14 DAYS, USE FOR CONTINUOUS GLUCOSE MONITORING. MULTIPLE INSULIN INJECTIONS. Blood-Glucose Meter,Continuous (FREESTYLE ROSA 3 READER) [facility] DISPENSE ONE READER KIT. USE FOR CONTINUOUS GLUCOSE MONITORING. MULTIPLE INSULIN INJECTIONS. E11.9 Drainage Bag misc 1 Each every 2 weeks. loratadine (CLARITIN) 10 mg tablet Take 1 tablet by mouth once daily. propranolol (INDERAL) 20 mg tablet Take 1 tablet by mouth two times a day. oxybutynin ER (DITROPAN XL) 15 mg 24 hr Extended Rel Tab Take 1 tablet by mouth once daily. DULoxetine (CYMBALTA) 30 mg capsule Take 30 mg by mouth once daily. busPIRone (BUSPAR) 15 mg tablet Take 15 mg by mouth once daily. acetaminophen (TYLENOL) 500 mg tablet Take 650 mg by mouth every 6 hours as needed. lisinopril (ZESTRIL, PRINIVIL) 5 mg tablet Take 1 tablet by mouth once daily. Per Dr. Ermias Salomon sodium chloride irrig solution (NACL 0.9% IRRIGATION BOTTLE) To use for catheter irrigation daily or as needed. Insulin [place], Disposable, (COMFORT EZ PEN NEEDLES) 29 gauge x 1/2 One needle with each lantus shot once a day. Dx: E13.29 on insulin PSEUDOEPHEDRINE HCL ORAL Take 30 mg by mouth as needed. ondansetron orally disintegrating (ZOFRAN ODT) 8 mg disintegrating tablet Take 8 mg by mouth every 8 hours as needed for nausea/vomiting. fluticasone (FLONASE) 50 mcg/actuation nasal spray Use 2 Sprays in each nostril once daily. Rinse mouth after use. Insulin [place], Disposable, 32 gauge x 5/16 ndle Use once daily with Victoza COMPOUNDED PRESCRIPTION Stoma catheter tube. DX: Qo5.4 and K59.2 No current facility-administered medications on file prior to visit. Social History Social History Tobacco Use Smoking status: Never Smokeless tobacco: Never Vaping Use Vaping status: Never Used Substance Use Topics Alcohol use: Not Currently Comment: social Drug use: Never Review of Symptoms REVIEW OF SYSTEMS SEE HPI EXAM: BP 132/85 Pulse 93 Wt 100.7 kg (222 lb) LMP 03/11/2024 (Exact Date) BMI 40.59 kg/m General Appearance: Alert, in no acute distress, well-hydrated, well nourished.. Neurologic: Positive findings: disoriented, abnormality of coordination patient swaying while walking and not using her left arm. Health Maintenance List BP Controlled (<130/80) due on 07/28/2022 Influenza Vaccine(1) due on 01/28/2024 Cervical Cancer Screening due on 05/02/2024 HbA1C due on 07/28/2024 Annual PCP Team Chronic Disease Visit due on 04/10/2025 Mammogram Screening due on 04/24/2025 LDL Cholesterol due on 04/29/2025 Dilated Retinal Exam due on 05/03/2025 DTaP,Tdap,Td Vaccine(3 - Td or Tdap) due on 03/23/2031 Pneumococcal Vaccine(3 of 3 - PCV20 or PCV21) due on 11/13/2031 Hepatitis C Screening Completed HIV Screening Completed Hepatitis B Vaccine Discontinued Urine Albumin:Creatinine Ratio Discontinued Diabetic Foot Exam Discontinued Covid-19 Vaccine Discontinued ASSESSMENT/PLAN: 1. Migraine without aura and without status migrainosus, not intractable - ICD9: 346.10, ICD10: G43.009 Depakote not improving symptoms and symptoms are reportedly worsening. Instructed patient to go to ER as directed by neuro on 07/09 for worsening symptoms and follow up with neurology. Devin George APRN.BURIAL AGENT documented in this encounterOur [facility]02-11-2025 Instructions* Patient Instructions* Araceli Torres PA-C - 07/09/2024 4:26 PM EST Depakote (valproate) 500 ER- take 2 at bed for 5 days then 1 at bed for 5 days and stop. Continue with lyrica 75mg twice daily Follow up in 6 months documented in this encounterOur [facility]02-11-[facility] History of Present illness Narrative* Araceli Torres PA-C - 07/09/2024 3:51 PM EST Images from the original note were not included. [facility] Follow up CC: Headache Follow up Last Visit: 01/03/24 ASSESSMENT/PLAN: 1. Spina bifida, unspecified hydrocephalus presence, unspecified spinal region (HCC) - ICD9: 741.90, ICD10: Q05.9 (primary diagnosis) Following with neurosurgery for surgery in February. 2. Intractable chronic migraine with aura and without status migrainosus - ICD9: 346.01, ICD10: G43.E19 Notes significant improvement in her headaches since last appointment, getting maybe 1 mild migraine a month that is well aborted with Tylenol. Continue with Lyrica 75 mg twice daily, did not increase it as discussed previously and doing well with this. Will continue this therapy and regimen, refill sent for 6 months. Patient was diagnosed with splenic infarct, of note we will avoid any triptans in the future for abortive relief. No new symptoms do not want additional workup at this time. 3. Neuropathy - ICD9: 355.9, ICD10: G62.9 4. Paresthesias - ICD9: 782.0, ICD10: R20.2 Well-controlled with Lyrica 75 mg twice daily. Refills for 6 months were sent. 5. Cervical vertebral fusion - ICD9: 724.9, ICD10: M43.22 Following with neurosurgery, see above. Patient agreeable to treatment plan of care at this time, questions were answered. Is patient is doing well we will follow-up in 6 months or sooner should any symptoms change or worsen. Plan: All options for treatment discussed. Preventative: Lyrica 75 mg BD Abortive: Tylenol Today: Pt is here for headache/migraine follow up. Last seen on 01/03/24 for headache, noting improvement in headaches. Following with neurosurg and having surgery. On lyrica 75mg bid and OTC. Since last visit headaches have overall improved but has had an intractable headache since last Monday. Unsure why it started but she is having a lot of nosebleeds and then does have a continuous left-sided headache ever since. Tried Tylenol but no improvement. 2 days ago she started having some numbness and weakness in the left side has been dropping things. No falls. Also notes that maybe herleft leg is swelling more than usual. Has been having a lot of issues with infections and keeping her glucose well-managed. Was following with neurosurgery but notes deferring surgery until she is able to lower her glucose levels. Current Headache treatment Preventative: lyrica 75mg bid Abortive: tylenol Medications effective? sometimes # of doses of abortive medications per month: Few Total headache days per month: less than 1 Total headache attacks per month: less than 1 Headache free days: Yes Duration of attacks: few hours Severity of headaches? mild Location: sometimes frontal or sides. Aura: Dots/Spots and Shimmers Accompanying symptoms: photophobia, phonophobia, nausea, vertigo, lightheaded, numbness arms, blurred vision, confusion, neck pain. Quality:throbbing and pressure. Worse with activity: sometimes Pain today: 01/05 Prodrome:none. Tobacco Use: No. Alcohol Use: No Caffeine:No Prior Therapies TPM propranolol Cymbalta Lisinopril Lasix MG Gabapentin- lost track of time Buspar Lyrica Tylenol The patient's prior records were reviewed including and lab testing, imaging, and procedures done since their last visit with me. Review of symptoms including constitutional, eyes, ENT, neck, respiratory, cardiovascular, GI, , musculoskeletal, hematologic, oncologic, endocrine, and psychiatric categories is unchanged. No new details in the family history or social history were offered by the patient. PAST MEDICAL HISTORY Diagnosis Date Amputation of left great toe (HCC) 06/25/2020 Arthritis started age 19 Bilateral leg edema 07/16/2018 Cervical radiculopathy 05/02/2013 Chronic pain 02/12/[address] ([facility]) 09/30/2021 Constipation due to outlet dysfunction 10/07/2021 Cyst of ovary 11/28/2011 Diabetes mellitus with peripheral vascular disease ([facility]) 03/29/2023 Diabetic eye exam ([facility]) 06/17/2016 Last done: 01/25/2017 Diabetic eye exam (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 Elevated LFTs 03/11/2020 Essential hypertension 02/21/2019 Fatty liver 03/11/2020 US 10/2019 History of amputation of left great toe (HCC) 06/25/[address] 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 Will monitor. Lipomeningocele, sacral level 09/12/2013 Lumbago 02/12/2015 Major depressive disorder, recurrent, mild (HCC) 03/29/2023 Medicare annual wellness visit, subsequent 02/28/2018 last done: 02/28/2018 Migraine without aura and without status migrainosus, not intractable 10/18/2016 Miscarriage Mixed hyperlipidemia 02/28/2018 Moderate recurrent major depression (HCC) 09/28/2023 Muscle weakness of left lower extremity 08/07/2013 Neck pain 05/02/2013 Neurogenic bladder 02/12/2015 Neurogenic bowel 01/06/2016 Neuropathy 02/12/2015 post back surgery with secondary infection. Seeing Dr. Gregg Non-compliance 09/02/2022 Even stated in endocrine note from 09/01/2022 Numbness and tingling of left arm and leg 08/07/2013 Obesity, Class II, BMI 35-39.9 02/12/2015 Panic attacks Paroxysmal SVT (supraventricular tachycardia) (HCC) 07/03/2017 Per 48 Hr event monitor 06/30/2017 Primary insomnia 02/17/2016 S/P hernia repair 12/11/2017 Spina bifida (HCC) 01/06/2016 Spinal stenosis of cervical region 06/26/2023 Thyroid cyst 01/01/2018 Complex right sided cysts. US 12/2017, biopsy per Dr. Josue 01/23/2018 benign. Repeat US in a year. 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 nl AMPUTATION TOE,MT-P JT Left 02/11/2020 left big toe CATH, SUPRAPUBIC/CYSTOSCOPIC 11/07/2018 COLOSTOMY 10/01/2021 CYSTOSCOPY,REMV CALCULUS,COMPLIC 11/10/2020 DILATION & CURETTAGE DX&/THER NONOBSTETRIC Dilation & curettage EGD W/O BRSH SPEC VARICIES INJ 03/25/2024 dr josue HERNIA REPAIR W/MESH 2019 LEXISCAN STRESS TEST 07/20/2018 negative NUCLEAR STRESS LEXISCAN (CARD) 10/24/2018 negative PAST SURGICAL HISTORY OF 2010 cholecystectomy PAST SURGICAL HISTORY OF 09/2012 back surgery x2 PAST SURGICAL HISTORY OF Left & 02/2014 foot x2 PAST SURGICAL HISTORY OF 07/2015 ABD procedure; Bowles stoma PAST SURGICAL HISTORY OF 09/30/2021 Laparoscopic end colostomy PAST SURGICAL HISTORY OF Left 01/2021 bone removed left foot REPAIR UMBILICAL HERNIA 12/11/2017 STRESS ECHO 12/09/2019 Negative STRESS TEST 07/18/2017 normal STRESS TEST 03/15/2018 negative THYROID FINE NEEDLE ASPIRATION Right 04/13/2023 right mid thyroid ALLERGIES Allergen Reactions Ceftriaxone Anaphylaxis Had skin testing on 12/09 at allergy office which was positive. Also had prior anaphylactic reactionon 09/30/2021. Patient should avoid ceftriaxone and all other cephalosporins. She has tolerated amoxicillin outpatient in the past. Cephalosporins Anaphylaxis Patient had anaphylaxis pre-op on 09/30 when this was given with other induction agents. Patient hadskin testing on 12/09/21 which was positive to ceftriaxone (see separate note from same day). Pleaseavoid all cephalosporins. Mushroom Anaphylaxis Peanut Anaphylaxis Peanuts Anaphylaxis Latex Rash Gabapentin Mental Status Change Patient reports having cognitive/memory issues after taking Mri Contrast [Gadol* GI Upset Current Medications: atorvastatin (LIPITOR) 80 mg tablet Take 1 tablet by mouth once daily. furosemide (LASIX) 20 mg tablet Take 1 tablet by mouth once daily. Take in evening furosemide (LASIX) 40 mg tablet Take 1 tablet by mouth once daily. Take in morning traZODone (DESYREL) 100 mg tablet Take 1 tablet by mouth daily at bedtime. omeprazole (PRILOSEC) 20 mg capsule Take 1 capsule by mouth once daily. pregabalin (LYRICA) 75 mg capsule Take 1 capsule by mouth two times a day for 180 days. Urinary Bag (URINARY LEG BAG) kit Use as directed with suprapublic catheter. Urinary Bag (UROSTOMY NIGHT BAG) [facility] Urinary Night Bag. Use as directed with suprapublic catheter. insulin aspart, niacinamide, (FIASP FLEXTOUCH U-100 INSULIN) 100 unit/mL (3 mL) pen Inject 20 unitswith meals (three times daily) PLUS SS#2 (2 units for every 50 over 150 PRE MEAL blood sugar) TDD~90 units daily insulin glargine (LANTUS SOLOSTAR U-100 INSULIN) 100 unit/mL (3 mL) Inject 40 units once daily Blood-Glucose Sensor (FREESTYLE ROSA 3 SENSOR) tara CHANGE SENSOR EVERY 14 DAYS, USE FOR CONTINUOUS GLUCOSE MONITORING. MULTIPLE INSULIN INJECTIONS. Blood-Glucose Meter,Continuous (FREESTYLE ROSA 3 READER) [facility] DISPENSE ONE READER KIT. USE FOR CONTINUOUS GLUCOSE MONITORING. MULTIPLE INSULIN INJECTIONS. E11.9 Drainage Bag [facility] 1 Each every 2 weeks. loratadine (CLARITIN) 10 mg tablet Take 1 tablet by mouth once daily. propranolol (INDERAL) 20 mg tablet Take 1 tablet by mouth two times a day. oxybutynin ER (DITROPAN XL) 15 mg 24 hr Extended Rel Tab Take 1 tablet by mouth once daily. DULoxetine (CYMBALTA) 30 mg capsule Take 30 mg by mouth once daily. busPIRone (BUSPAR) 15 mg tablet Take 15 mg by mouth once daily. acetaminophen (TYLENOL) 500 mg tablet Take 650 mg by mouth every 6 hours as needed. lisinopril (ZESTRIL, PRINIVIL) 5 mg tablet Take 1 tablet by mouth once daily. Per Dr. Ermias Salomon sodium chloride irrig solution (NACL 0.9% IRRIGATION BOTTLE) To use for catheter irrigation daily or as needed. Insulin [place], Disposable, (COMFORT EZ PEN NEEDLES) 29 gauge x 1/2 One needle with each lantus shot once a day. Dx: E13.29 on insulin PSEUDOEPHEDRINE HCL ORAL Take 30 mg by mouth as needed. ondansetron orally disintegrating (ZOFRAN ODT) 8 mg disintegrating tablet Take 8 mg by mouth every 8 hours as needed for nausea/vomiting. fluticasone (FLONASE) 50 mcg/actuation nasal spray Use 2 Sprays in each nostril once daily. Rinse mouth after use. Insulin [place], Disposable, 32 gauge x 5/16 ndle Use once daily with Victoza COMPOUNDED PRESCRIPTION Stoma catheter tube. DX: Qo5.4 and K59.2 ELIQUIS 5 mg tab(s) Take 1 tablet by mouth two times a day. (Patient taking differently: Take 5 mg by mouth two times a day. ON HOLD) Studies to Review: No New Health Issues: Yes, chronic UTI, poor glycemic control New Social History: No New Family History: No REVIEW OF SYSTEMS: GENERAL:No weight loss, malaise or fevers. HEENT:no changes to hearing or vision NECK:negative for neck pain, swelling. RESPIRATORY: Negative for cough, wheezing or shortness of breath. CARDIOVASCULAR: Negative for chest pain, leg swelling or palpitations. GASTROINTESTINAL: Negative for abdominal discomfort, blood in stools or black stools or change in bowel habits GENITOURINARY: No history of dysuria, frequency or incontinence MUSKULOSKELETAL: Negative for joint pain or swelling, back pain or muscle pain. SKIN:Negative for lesions, rash, and itching. HEMATOLOGIC/LYMPHATIC/IMMUNOLOGIC:Negative for prolonged bleeding, bruising easily or swollen nodes. ENDOCRINE: Negative for cold or heat intolerance, polyuria, polydipsia NEUROLOGIC:See HPI PHYSICAL EXAMINATION: BP 122/88 (BP Site: Left Arm, BP Position: Sitting) Pulse 69 Wt 100.2 kg (220 lb 12.8 oz) LMP1 (Exact Date) SpO2 100% BMI 40.37 kg/m General: well appearing, in no acute distress, alert, HEENT: Normocephalic/atraumatic., Skin: Color, texture, turgor normal. No rashes or lesions, Lungs: breathing comfortably, Neurological Examination: Cognition: The patient is alert and oriented times three Lucid and organized in conversation Able to tell detailed medical hx Speech is Normal in fluency volume and clarity Content and Syntax: Normal Comprehension: Normal, able to follow several step commands Cranial Nerves: Pupils are equal and reactive to light. Pupils normal in size Extraocular movements are grossly intact Good saccades and pursuits No nystagmus Hearing intact Good upgaze Visual hartley are full to confrontation. Facial, motor and sensory exam is symmetric Equal v1,V2, V3 Tongue is in midline. No tongue fasciculation. Palate is upgoing bilaterally SCM and trapezius are full. Shoulder shrug intact Normal tone. However patient with very poor effort on the left upper and lower extremity. Originally had moderate strength in the left hand with a squeeze but then later was unable to squeeze at all.Able to lift arms against gravity with distraction. Unable to lift leg at the hip, knee or ankle. However, later able to rise on toes and heels. Normal coordination. DTRs are intact and symmetric bilaterally. Normal gait. Impression: ASSESSMENT/PLAN: 1. Intractable chronic migraine with aura and without status migrainosus - ICD9: 346.01, ICD10: G43.E19 (primary diagnosis) Notes intractable headache since Monday causing some subjective weakness and numbness on the leftside of the body. Notes before this she was headache free, unsure what caused this most recent headache. Headache is still consistent with migraine, but reporting some new weakness. However, on exam patient with very poor effort with strength testing and contradicting findings on exam. Reflexes areintact, do not feel she is having a stroke or other neurologic emergency. Discussed that should herweakness worsen or she has any falls, tripping or other neurologic symptoms to go to the emergency department. No vision changes, slurred speech, facial weakness or droop, gait was normal. Discussed breaking her headache, typically try Medrol Dosepak but due to poor glycemic control discussed Depakote bridge and patient is amenable. Denies any chance of at this time. Will try 10 days ofDepakote to break her headache cycle. Will also send in refills for Lyrica 75 mg twice daily as this is a good preventative for her. No new symptoms that would warrant additional workup at this time. 2. Neuropathy - ICD9: 355.9, ICD10: G62.9 3. Paresthesias - ICD9: 782.0, ICD10: R20.2 No change 4. Spina bifida, unspecified hydrocephalus presence, unspecified spinal region (HCC) - ICD9: 741.90, ICD10: Q05.9 5. Cervical vertebral fusion - ICD9: 724.9, ICD10: M43.22 Following with neurosurgery, deferring surgery until better glycemic control. Araceli Torres PA-C Plan: All options for treatment discussed. Preventative: Lyrica 75 mg twice daily Abortive: tylenol Follow-up: 6 months I spent a total of 30 minutes on the date of the service which included preparing to see the patient, [id number] patient care, completing clinical documentation, obtaining and/or reviewing separately obtained history, performing a medically appropriate examination, counseling and educating the pat ient/family/caregiver, and ordering medications, tests, or procedures. PDMP website checked and validated. All prescriptions have been APPROPRIATELY filled. No suspiciousactivity was identified. 07/09/2024 by CAMDEN Pederson PA-C General Neurology [address] [place] [address]. [phone] Appointment: [phone] 07/08/2024 PROMIS Global Health Physical Health Summary Physical health: Poor Everyday physical activity, ability: A little Fatigue: Very severe Pain level: 6 General health: Poor Social activities/roles, ability: Fair Physical Health T-Score 26.7 (Poor) Physical Health Percentile 1 PROMIS Global Health Mental Health Summary Quality of life: Poor Mental health (mood,thinking): Fair Social satisfaction: Fair Emotional problems (anxious,depressed): Sometimes Mental Health T-Score 33.8 (Fair) Mental Health Percentile 5 PHQ-9 Score: 12(Moderate Depression) PHQ-9 Self-Harm: Not at all KIERSTEN-7 Score: 8(Mild Anxiety) NEURO-QOL Cognitive Function T-Score 58(Within Normal Limits) PROMIS Physical Function T-Score 29(Severe Dysfunction) PROMIS Physical Function Percentile 2 PROMIS Pain Interference T-Score 67(Moderate) PROMIS Pain Interference Percentile 4 Percentiles provide an indication of how a patient's score ranks in relation to the [place] general population. > 31st percentile is within normal limits or better *< 31st percentile is at least SD worse than population, which may be clinically relevant < 16th percentile is at least 1 SD worse than population and warrants attention [facility] Telephone encounter Note * Telephone Encounter - Denae Monk MA - 06/28/2024 8:53 AM EST Patient rescheduled. Notified via my chart. Denae Monk MA [facility]01[facility] Miscellaneous Notes* Telephone Encounter - Denae Monk MA - 06/28/2024 8:53 AM EST Patient rescheduled. Notified via my chart. Denae Monk MA documented in [facility] History of Present illness Narrative* Josesito Verdin LPN - 06/13/2024 7:38 AM EST Scan on 06/13/2024 7:21 AM by ProviderMelanie PA-C: Consultation - Emergency Medicine documented [facility] History of Present illness Narrative* Jessie Alanis MA - 06/11/2024 4:25 PM EST In the supine position, I attempted to remove the old 18Fr suprapubic tube after deflating the ballloon of just shy of 30ml of saline. Catheter was anchored and would not come out. I went to get the PA for assistance. He was able to reinflate the ballloon slightly and deflate to get catheter out with noted discomfort and mild bleeding. The area was then prepped with betadine, and a new 16 Fr Cook was inserted through the stoma site into the bladder. The balloon was inflated with 10 cc's of sterile saline per recommendation of Cory Box PA-C. His thinking is that possibly the balloon was getting stretched to far and that is what was causing it to double up and get caught at the stoma site. The catheter irrigated well. There were a few very tiny clots but otherwise clear drainage. The pt left in no distress and will follow up as planned and call in the interim with any concerns. Jessie Alanis MA documented in this [facility] History of Present illness Narrative* Denae Monk MA - 06/10/2024 1:44 PM EST Scan on 06/09/2024 6:50 AM by ProviderMelanie PA-C: Consultation - Emergency Medicine Denae Monk MA documented in this [facility]01-10-2025 Note. MICRO - Microbiology PROCEDURE: Blood Culture (bacterial) [*1] SOURCE: Blood BODY SITE: COLLECTED DATE/TIME: 06/02/2024 01:46 EST RECEIVED DATE/TIME: 06/02/2024 13:33 EST START DATE/TIME: 06/02/2024 13:33 EST FREE TEXT SOURCE: FINAL REPORTS Final Report [] Verified Date/Time/Personnel: 06/07/2024 13:59 EST Blood Culture: No Growth at 5 days. PRELIMINARY REPORTS Preliminary Report [] Verified Date/Time/Personnel: 06/02/2024 14:59 EST Culture has been received in lab and is no growth to date. Routine cultures are held for 5 days. Performing Locations *1: This test was performed at: [address], [address] [place], [place] [id number] Note. MICRO - Microbiology PROCEDURE: Blood Culture (bacterial) [*1] SOURCE: Blood BODY SITE: COLLECTED DATE/TIME: 06/02/2024 01:46 EST RECEIVED DATE/TIME: 06/02/2024 13:33 EST START DATE/TIME: 06/02/2024 13:33 EST FREE TEXT SOURCE: FINAL REPORTS Final Report [] Verified Date/Time/Personnel: 06/07/2024 13:59 EST Blood Culture: No Growth at 5 days. PRELIMINARY REPORTS Preliminary Report [] Verified Date/Time/Personnel: 06/02/2024 14:59 EST Culture has been received in lab and is no growth to date. Routine cultures are held for 5 days. Performing Locations *1: This test was performed at: [address], [address] [place], [place] [id number] Note. MICRO - Microbiology PROCEDURE: Urine Culture [O1 *1] SOURCE: Urine, Cook Catheter BODY SITE: COLLECTED DATE/TIME: 06/02/2024 00:53 EST RECEIVED DATE/TIME: 06/02/2024 13:52 EST START DATE/TIME: 06/02/2024 13:52 EST FREE TEXT SOURCE: FINAL REPORTS Final Report [] Verified Date/Time/Personnel: 06/04/2024 07:23 EST >100,000 cfu/ml Multiple bacterial morphotypes present. Probable Contamination. Suggest recollection if clinically indicated. PRELIMINARY REPORTS Preliminary Report [] Verified Date/Time/Personnel: 06/03/2024 09:13 EST Culture results pending. Order Comments O1: Urine Culture Added by Discern Performing Locations *1: This test was performed at: [facility], [address] [place] [address], [id number] , [facility]01-05-2025 Evaluation + Plan note Diagnostic Tests Pending * Urine Culture 06/02/[address] [facility] 01-05-2025 Hospital Discharge instructions Patient Education 06/02/2024 02:17:03 Bladder Infection, Female (Adult) Bladder Infection, Female (Adult) Urine is normally doesn't have any bacteria in it. But bacteria can get into the urinary tract fromthe skin around the rectum. Or they can travel in the blood from elsewhere in the body. Once they are in your urinary tract, they can cause infection in the urethra (urethritis), the bladder (cystitis), or the kidneys (pyelonephritis). The most common place for an infection is in the bladder. This is called a bladder infection. This is one of the most common infections in women. Most bladder infections are easily treated. They are not serious unless the infection spreads to the kidney. The phrases bladder infection, UTI, and cystitis are often used to describe the same thing. But they are not always the same. Cystitis is an inflammation of the bladder. The most common cause of cystitis is an infection. Symptoms The infection causes inflammation in the urethra and bladder. This causes many of the symptoms. Themost common symptoms of a bladder infection are: Pain or burning when urinating Having to urinate more often than usual Urgent need to urinate Only a small amount of urine comes out Blood in urine Abdominal discomfort. This is usually in the lower abdomen above the pubic bone. Cloudy urine Strong- or bad-smelling urine Unable to urinate (urinary retention) Unable to hold urine in (urinary incontinence) Fever Loss of appetite Confusion (in older adults) Causes Bladder infections are not contagious. You can't get one from someone else, from a toilet seat, or from sharing a bath. The most common cause of bladder infections is bacteria from the bowels. The bacteria get onto the skin around the opening of the urethra. From there, they can get into the urine and travel up to thebladder, causing inflammation and infection. This usually happens because of: Wiping improperly after urinating. Always wipe from front to back. Bowel incontinence Procedures such as having a catheter inserted Older age Not emptying your bladder. This can allow bacteria a chance to grow in your urine. Dehydration Constipation Sex Use of a diaphragm for control Treatment Bladder infections are diagnosed by a urine test. They are treated with antibiotics and usually clear up quickly without complications. Treatment helps prevent a more serious kidney infection. Medicines Medicines can help in the treatment of a bladder infection: Take antibiotics until they are used up, even if you feel better. It is important to finish them tomake sure the infection has cleared. You can use acetaminophen or ibuprofen for pain, fever, or discomfort, unless another medicine was prescribed. If you have chronic liver or kidney disease, talk with your healthcare provider before using these medicines. Also talk with your provider if you've ever had a stomach ulcer or gastrointestinal bleeding, or are taking blood-thinner medicines. If you are given phenazopydridine to reduce burning with urination, it will cause your urine to become a bright orange color. This can stain clothing. Care and prevention These self-care steps can help prevent future infections: Drink plenty of fluids to prevent dehydration and flush out your bladder. Do this unless you must restrict fluids for other health reasons, or your doctor told you not to. Proper cleaning after going to the bathroom is important. Wipe from front to back after using the toilet to prevent the spread of bacteria. Urinate more often. Don't try to hold urine in for a long time. Wear loose-fitting clothes and cotton underwear. Avoid tight-fitting pants. Improve your diet and prevent constipation. Eat more fresh fruit and vegetables, and fiber, and less junk and fatty foods. Avoid sex until your symptoms are gone. Avoid caffeine, alcohol, and spicy foods. These can irritate your bladder. Urinate right after intercourse to flush out your bladder. If you use control pills and have frequent bladder infections, discuss it with your doctor. Follow-up care Call your healthcare provider if all symptoms are not gone after 3 days of treatment. This is especially important if you have repeat infections. If a culture was done, you will be told if your treatment needs to be changed. If directed, you cancall to find out the results. If X-rays were done, you will be told if the results will affect your treatment. Call 911 Call 911 if any of the following occur: Trouble breathing Hard to wake up or confusion Fainting or loss of consciousness Rapid heart rate When to seek medical advice Call your healthcare provider right away if any of these occur: Fever of 100.4 F (38.0 C) or higher, or as directed by your healthcare provider Symptoms are not better by the third day of treatment Back or belly (abdominal) pain that gets worse Repeated vomiting, or unable to keep medicine down Weakness or dizziness Vaginal discharge Pain, redness, or swelling in the outer vaginal area (labia) [id number] [employer]. [address] [place] [address], [place] [address]. All rights reserved. This information is not intended as a substitute for professional medical care. Always follow yourhealthcare professional's instructions. 06/02/2024 02:16:50 Diabetes with High Blood Sugar Diabetes with High Blood Sugar You have been treated for high blood sugar (hyperglycemia). This may be because of an infection or other illness. Or it may be from eating too many sweets or starches. Or it may be from not taking enough insulin or other diabetes medicine. Home care Check your blood sugar level at least 2 times a day. Write it down the results. Do this before breakfast and before dinner. If you take insulin, also write down your routine insulin dose. Note any other doses you needed based on your sliding scale or as advised by your healthcare provider. Do this for the next 3 to 5 days. High blood sugar may cause symptoms that you can learn to spot. These include: Peeing often Thirst Headache Breath that smells fruity Nausea or vomiting Belly pain If you have symptoms of high blood sugar, use a blood or urine test to find out what your blood sugar level is. If it is above your usual range, use the sliding scale regular insulin dose from your healthcare provider. Call your provider for advice if you were not given a range for your insulin dose. If your blood sugar is over 240 mg/dL, check your urine for ketones. Follow-up care Follow up with your healthcare provider, or as advised. You may need to meet with your provider in the next week. You will likely look at your blood sugar records together. You may need to change your dose of insulin or other diabetes medicine. When to seek medical advice Call your healthcare provider right away if these occur: Symptoms of high blood sugar that don't get better with the treatment your provider advised. This is especially true if you also have ketones in your urine. Blood sugar over 300 mg/dl. If you can t reach your healthcare provider, go to a hospital emergencyroom or urgent care center. Call 911 Call 911 if you have any of the following: Confusion Dizziness, lightheadedness, or loss of consciousness Shortness of breath Chest pain Weakness of an arm, leg, or one side of the face Sudden trouble with speech or vision [phone] [employer]. [address] [place] [address], [place] [address]. All rights reserved. This information is not intended as a substitute for professional medical care. Always follow yourhealthcare professional's instructions. Follow Up Care 06/02/2024 00:17:34 With:WILL BRANNON MD Address: [address] [place] [address]- When:2-[address] [facility] 01-05-2025 Note Discharge Instructions Thank you for allowing [facility] to assist you with your healthcare needs. The following is importantdischarge information regarding your hospital visit. Diagnosis from Today's Visit Sprain of low back What to Do Next Instructions from Your Care Team No qualifying data available. Post Acute Orders No qualifying data available. You Need to Schedule the Following Appointments Follow Up with WILL BRANNON MD When:Within 2-4 days Where:[address] [place] [address] [place] [id number]- Allergies Mushrooms(Severe) Throat swelling Peanuts(Severe) Throat swelling Rocephin(Severe) Hives cephalosporins(Severe) Anaphylaxis, Hives gabapentin (Moderate) psychotic breakdown Latex (Mild) Hives contrast media (gadolinium-based) penicillin Unknown vancomycin Medications Please ask your primary doctor or pharmacist before taking any other medication not listed, including over the counter drugs, herbal medications, vitamins and or supplements as they may interact withyour home medications. What How Much When Why Instructions Last Dose New acetaminophen-oxyCODONE (Percocet 5 mg-325 mg oral tablet) 1 tab(s) by mouth Every 6 hours as needed for Pain Sprain of low back Duration: 3 Days Printed Prescription New nitrofurantoin (Macrobid 100 mg oral capsule) 1 cap by mouth Two (2) times a day Duration: 14 Days Take with food Printed Prescription Unchanged apixaban (Eliquis 5 mg oral tablet) 1 tab(s) by mouth Two (2) times a day Unchanged atorvastatin (atorvastatin 80 mg oral tablet) 1 tab(s) by mouth Every day Unchanged DME (DME MISCellaneous) See instructions Sterile water, 40 syringes, 40 needles, alchohol swabs. Unchanged DULoxetine (Cymbalta 30 mg oral delayed release capsule) 1 cap by mouth Once a day Unchanged furosemide (Lasix 20 mg oral tablet) 2 tab(s) by mouth Once a day (in the morning) Unchanged furosemide (Lasix 20 mg oral tablet) 1 tab(s) by mouth Once a day (in the evening) Unchanged insulin aspart (Novolog) (Fiasp FlexTouch 100 units/ mL injectable solution) See instructions Sliding scale TIDAC Unchanged insulin glargine (Lantus 100 units/ mL10 ml vial solution) 33 unit(s) Subcutaneous Daily at bedtime Unchanged lisinopril (lisinopril 2.5 mg oral tablet) 1 tab(s) by mouth Once a day Unchanged oxybutynin (oxybutynin 15 mg/ 24 hr oral tablet, extended release) 1 tab(s) by mouth Once a day (in the evening) Unchanged pregabalin (pregabalin 75 mg oral capsule) 1 cap by mouth Two (2) times a day Unchanged propranolol (propranolol 20 mg oral tablet) 0.5 tab(s) by mouth Two (2) times a day Unchanged traZODone (traZODone 100 mg oral tablet) 1 tab(s) by mouth Daily at bedtime Please take this list to your next doctor s visit. Bring all medications you take, including over the counter medications, herbals and other supplements with you to your doctor s visit. Patients and families are reminded to discard old lists and to update any records with all medication providers or retail pharmacies. Education Materials Bladder Infection, Female (Adult) Urine is normally doesn't have any bacteria in it. But bacteria can get into the urinary tract fromthe skin around the rectum. Or they can travel in the blood from elsewhere in the body. Once they are in your urinary tract, they can cause infection in the urethra (urethritis), the bladder (cystitis), or the kidneys (pyelonephritis). The most common place for an infection is in the bladder. This is called a bladder infection. This is one of the most common infections in women. Most bladder infections are easily treated. They are not serious unless the infection spreads to the kidney. The phrases bladder infection, UTI, and cystitis are often used to describe the same thing. But they are not always the same. Cystitis is an inflammation of the bladder. The most common cause of cystitis is an infection. Symptoms The infection causes inflammation in the urethra and bladder. This causes many of the symptoms. Themost common symptoms of a bladder infection are: Pain or burning when urinating Having to urinate more often than usual Urgent need to urinate Only a small amount of urine comes out Blood in urine Abdominal discomfort. This is usually in the lower abdomen above the pubic bone. Cloudy urine Strong- or bad-smelling urine Unable to urinate (urinary retention) Unable to hold urine in (urinary incontinence) Fever Loss of appetite Confusion (in older adults) Causes Bladder infections are not contagious. You can't get one from someone else, from a toilet seat, or from sharing a bath. The most common cause of bladder infections is bacteria from the bowels. The bacteria get onto the skin around the opening of the urethra. From there, they can get into the urine and travel up to thebladder, causing inflammation and infection. This usually happens because of: Wiping improperly after urinating. Always wipe from front to back. Bowel incontinence Procedures such as having a catheter inserted Older age Not emptying your bladder. This can allow bacteria a chance to grow in your urine. Dehydration Constipation Sex Use of a diaphragm for control Treatment Bladder infections are diagnosed by a urine test. They are treated with antibiotics and usually clear up quickly without complications. Treatment helps prevent a more serious kidney infection. Medicines Medicines can help in the treatment of a bladder infection: Take antibiotics until they are used up, even if you feel better. It is important to finish them tomake sure the infection has cleared. You can use acetaminophen or ibuprofen for pain, fever, or discomfort, unless another medicine was prescribed. If you have chronic liver or kidney disease, talk with your healthcare provider before using these medicines. Also talk with your provider if you've ever had a stomach ulcer or gastrointestinal bleeding, or are taking blood-thinner medicines. If you are given phenazopydridine to reduce burning with urination, it will cause your urine to become a bright orange color. This can stain clothing. Care and prevention These self-care steps can help prevent future infections: Drink plenty of fluids to prevent dehydration and flush out your bladder. Do this unless you must restrict fluids for other health reasons, or your doctor told you not to. Proper cleaning after going to the bathroom is important. Wipe from front to back after using the toilet to prevent the spread of bacteria. Urinate more often. Don't try to hold urine in for a long time. Wear loose-fitting clothes and cotton underwear. Avoid tight-fitting pants. Improve your diet and prevent constipation. Eat more fresh fruit and vegetables, and fiber, and less junk and fatty foods. Avoid sex until your symptoms are gone. Avoid caffeine, alcohol, and spicy foods. These can irritate your bladder. Urinate right after intercourse to flush out your bladder. If you use control pills and have frequent bladder infections, discuss it with your doctor. Follow-up care Call your healthcare provider if all symptoms are not gone after 3 days of treatment. This is especially important if you have repeat infections. If a culture was done, you will be told if your treatment needs to be changed. If directed, you cancall to find out the results. If X-rays were done, you will be told if the results will affect your treatment. Call 911 Call 911 if any of the following occur: Trouble breathing Hard to wake up or confusion Fainting or loss of consciousness Rapid heart rate When to seek medical advice Call your healthcare provider right away if any of these occur: Fever of 100.4 F (38.0 C) or higher, or as directed by your healthcare provider Symptoms are not better by the third day of treatment Back or belly (abdominal) pain that gets worse Repeated vomiting, or unable to keep medicine down Weakness or dizziness Vaginal discharge Pain, redness, or swelling in the outer vaginal area (labia) 3314-[address]30 [employer]. [address] [place] [address], [place] [address]. All rights reserved. This information is not intended as a substitute for professional medical care. Always follow yourhealthcare professional's instructions. Diabetes with High Blood Sugar You have been treated for high blood sugar (hyperglycemia). This may be because of an infection or other illness. Or it may be from eating too many sweets or starches. Or it may be from not taking enough insulin or other diabetes medicine. Home care Check your blood sugar level at least 2 times a day. Write it down the results. Do this before breakfast and before dinner. If you take insulin, also write down your routine insulin dose. Note any other doses you needed based on your sliding scale or as advised by your healthcare provider. Do this for the next 3 to 5 days. High blood sugar may cause symptoms that you can learn to spot. These include: Peeing often Thirst Headache Breath that smells fruity Nausea or vomiting Belly pain If you have symptoms of high blood sugar, use a blood or urine test to find out what your blood sugar level is. If it is above your usual range, use the sliding scale regular insulin dose from your healthcare provider. Call your provider for advice if you were not given a range for your insulin dose. If your blood sugar is over 240 mg/dL, check your urine for ketones. Follow-up care Follow up with your healthcare provider, or as advised. You may need to meet with your provider in the next week. You will likely look at your blood sugar records together. You may need to change your dose of insulin or other diabetes medicine. When to seek medical advice Call your healthcare provider right away if these occur: Symptoms of high blood sugar that don't get better with the treatment your provider advised. This is especially true if you also have ketones in your urine. Blood sugar over 300 mg/dl. If you can t reach your healthcare provider, go to a hospital emergencyroom or urgent care center. Call 911 Call 911 if you have any of the following: Confusion Dizziness, lightheadedness, or loss of consciousness Shortness of breath Chest pain Weakness of an arm, leg, or one side of the face Sudden trouble with speech or vision [id number] [employer]. [address] [place] [address]. All rights reserved. This information is not intended as a substitute for professional medical care. Always follow yourhealthcare professional's instructions. Additional Information VACCINATE! IT SAVES LIVES! Members of the community who have not yet received the COVID-19 vaccine and would like to receive it can visit one of [facility] vaccine clinics. There are many vaccine clinic locations within the [facility]. For locations and available times, please visit [email or web address].[email or web address]/. It is important to note that some COVID mobile vaccine clinics are held outdoors and may be canceled in rainy or stormy conditions. To learn more about pediatric vaccinations (ages 5-11), we invite you to visit the [facility] webpage. [email or web address] learn more about the COVID-19 vaccine, we invite you to visit the CDC website for a list of frequently asked questions. https://www.cdc.gov/coronavirus/2019-ncov/vaccines/faq.html [facility] Patient Portal Access Instructions: Stay connected with your healthcare team and access your personal medical information anytime with the [email or web address] Patient Portal. If you would like a full copy of your medical records please contact the [facility] Medical Records Department Monday through Monday between 8a.m. and 4:30p.m. Please follow the directions below to access the portal: 1.Access the email account you provided upon registration to the hospital.2.Look for an invitation email from [facility].3.Open the email and access the invitation link: Accept Invitation to [email or web address].Fill in the required hartley to create your account. Sign into www.[employer] with your username and password that you created in the above steps to stay up to date. You can then view a summary of results, a summary of your visits, and the ability to download your summaries to your computer or send the information securely to a physician. Remember that your healthcare information is confidential, so carefully consider who you will allow to register on the [email or web address] Patient Portal for access to your information. You can also access the [email or web address] Patient Portal on the [employer] robert. Simply click on Health Records under [employer] and then click on the [facility] logo. HOW TO SAFELY DISPOSE OF PRESCRIPTION MEDICATIONS Please use one of the following methods to safely dispose of your unused medications. 1.Use a drug disposal kit: the drug disposal pouch allows you to safely discard your old and unuseddrugs. Ask your nurse to give you one when you are discharged.2.Visit a local take-back location: Many local pharmacies and police departments have programs that collect old and unwanted prescriptiondrugs. Call your local pharmacy or go to http://[employer]/6X5Lq0o to find one close to you.3.Make use of household items: Use cat litter or old coffee grounds to dispose medications if other options arenot available. Mix your drugs with these household products, seal them in an airtight container andthrow it into the garbage. Call [facility]: [phone] to be sure your drugs can be disposed of in this way. Some medicines may require a different approach.4.Never flush your medications down the toilet. IF YOU HAVE BEEN PRESCRIBED AN OPIOIDS FOR PAIN If you have been prescribed an opioid (such as hydrocodone, oxycodone or morphine), it is critical to understand the possible side effects and risks of opioid pain medications. Even when taken as directed, opioids can have several side effects including: Tolerance, meaning you might need to take more of a medication for the same pain relief. Nausea, vomiting and/or constipation. Sleepiness, dizziness, dry mouth, confusion, depression or itching. Physical dependence, meaning you have withdrawal symptoms when a medication is stopped ? this can develop within a few days. KNOW YOUR RESPONSIBILITIES It is important to know exactly how much and how often to take the opioid pain medications you are prescribed. Never take opioids in higher amounts or more often than prescribed. Do not combine opioids with alcohol or other drugs that cause drowsiness, such as benzodiazepines, also known as benzos,including diazepam and alprazolam, muscle relaxants or sleep aids. Never sell or share prescriptionopioids. This is illegal. Store opioids in a secure place and out of reach of others (including children, family, friends and visitors). The last page(s) of this document has been signed and retained as a CHART COPY Signatures Patient Education Materials Bladder Infection, Female (Adult) Diabetes with High Blood Sugar Medication Leaflets My discharge plan and instructions have been reviewed and explained to me and IUVALDO ANGELA Lunderstand my current condition and have read and understand these discharge instructions. I have received a written copy of the plan/instructions. If I have questions, I am aware that I should contact my doctor. 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01-05-2025 Note* Exam Date Time Procedure Performing Provider Status 06/02/24 1:[address] Abd/Pelvis w/ IV Contrast Only DONAVON HUSAIN MD; Auth (Verified) [id number] ORIGINAL EXAMINATION: CT OF THE ABDOMEN AND PELVIS WITH CONTRAST 06/02/2024 1:52 am TECHNIQUE: CT of the abdomen and pelvis was performed with the administration of intravenous contrast. Multiplanar reformatted images are provided for review. Automated exposure control, iterative reconstruction, and/or weight based adjustment of the mA/kV was utilized to reduce the radiation dose to as low as reasonably achievable. COMPARISON: None. HISTORY: ORDERING SYSTEM PROVIDED HISTORY: Reason for Exam: pain FINDINGS: Lower Chest: Lungs are clear bilaterally. Organs: The liver, post cholecystectomy biliary tree, pancreas, spleen, adrenal glands, and kidneys show no sign of acute abnormality. Nonobstructing stone in the lower pole the right kidney measuring 5 mm is unchanged. Ureters are normal in caliber without evidence of an obstructing stone. GI/Bowel: The stomach and duodenum are unremarkable. No evidence of obstruction of the small bowel or colon. 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 There is a stable peristomal hernia that contains multiple loops of colon. Stable umbilical hernia noted, which contains a segment of the appendix which demonstrates no active inflammatory change. Pelvis: Suprapubic catheter redemonstrated. Urinary bladder wall thickening with balloon catheter is noted. There is mild haziness noted adjacent to the urinary bladder. No suspicious adnexal lesions are identified. Peritoneum/Retroperitoneum: There is no retroperitoneal lymph node enlargement. Abdominal aorta and inferior vena cava are normal in size. Bones/Soft Tissues: No acute osseous abnormality. IMPRESSION: 1. Mild wall thickening of the urinary bladder with adjacent haziness is nonspecific and could be seen in the setting of an infectious or inflammatory cystitis, this should be correlated with urinalysis. Suprapubic catheter appears to be in appropriate position. No additional acute intra-abdominal findings. Numerous chronic findings as detailed above. Interpreted by: Donavon Figueroa MD Preliminary Report By: Donavon Figueroa MD Electronically signed By Donavon Figueroa MD Dictated Date: 06/02/2024 1:56:41 AM Prelim Date: 06/02/2024 2:08:26 AM Sign Date: 06/02/2024 2:08:26 AM Ordering Provider: [facility]12-10-2024 History of Present illness Narrative * Naty Haddad LPN - 05/07/2024 3:31 PM EST CC Supra pubic catheter in Place HPI: Debby Bailon is a 43 year old female. The patient is here now for a supra pubic catheter change with diagnosis neurogenic bladder. Procedure: Performed a catheter change. The indwelling supra pubic cook size 18 Fr was removed with some resistance- catheter tip intact with and lot of sediment on catheter. Inserted 18 Fr catheter using aseptic technique. Irrigated with 60 mL 0.9% sodium chloride. Approximately 60 mLs pink return noted throughout. Bulb inflated with 30 mLs prefilled syringes- sterile water. T-Sponge applied to SPT base per patient preference attached to drainage bag. The patient tolerated the procedure well. Patient does not like tubing secured. Assessment/Plan: Successful catheter change. Return for catheter changes as planned. Naty Haddad LPN [facility] History of Present illness Narrative* Sabra Nevarez, OD - 05/03/2024 4:31 PM EST 1. Type 2 diabetes mellitus without retinopathy (HCC) Risk of diabetic changes and vision loss can be minimized by tight control of blood sugar, blood pressure, and cholesterol levels. 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 Encouraged patient to call the office immediately with any changes to vision or visual concerns. Advised to not wait until the next scheduled exam. 2. Myopia, bilateral 3. Regular astigmatism of both eyes Finalized spec rx 4. Dry eye syndrome of left eye Use artificial tears as needed Follow-up in 1 year for diabetic eye exam or sooner as needed Sabra Nevarez, OD May 03, 2024 4:32 PM documented in this encounterOur [facility]12-[facility]24 Telephone encounter Note * Telephone Encounter - Elayne Awan RN - 05/03/2024 2:07 PM EST Pt notified of results. [facility]12-06-[facility]24 Miscellaneous Notes* Telephone Encounter - Elayne Awan RN - 05/03/2024 2:07 PM EST Pt notified of results. * Telephone Encounter - Josesito Verdin LPN - 05/03/2024 8:46 AM EST Left message for pt to contact office. Josesito Verdin LPN * Telephone Encounter - Will Brannon MD - 05/02/2024 7:45 PM EST Let patient know her magnesium and thyroid labs were ok. documented in this encounterOur [facility]12-[facility]24 Telephone encounter Note * Telephone Encounter - Josesito Verdin LPN - 05/03/2024 8:46 AM EST Left message for pt to contact office. Josesito Verdin LPN [facility]12-05-2024 Telephone encounter Note* Telephone Encounter - Will Brannon MD - 05/02/2024 7:45 PM EST Let patient know her magnesium and thyroid labs were ok. [facility]12-05-[facility] Telephone encounter Note* Telephone Encounter - Naty Haddad LPN - 05/02/2024 9:27 AM EST Patient called. Verified name and date of . Patient informed of results- verbalizes understanding. Naty Haddad LPN [facility]12-05-[facility]24 Miscellaneous Notes* Telephone Encounter - Naty Haddad LPN - 05/02/2024 9:27 AM EST Patient called. Verified name and date of . Patient informed of results- verbalizes understanding. Naty Haddad LPN * Telephone Encounter - Naty Haddad LPN - 05/02/2024 8:23 AM EST Called patient. No answer- left message. Please give results per provider. Naty Haddad LPN * Telephone Encounter - Naty Haddad LPN - 05/02/2024 8:22 AM EST ----- Message from Cory Box PA-C sent at 05/01/2024 10:11 PM EST ----- No infection in the urine JENIFFER Gaona MT, PA-C documented in this encounterOur [facility]12-[facility]24 Telephone encounter Note * Telephone Encounter - Naty Haddad LPN - 05/02/2024 8:23 AM EST Called patient. No answer- left message. Please give results per provider. Naty Haddad LPN [facility]12-05-2024 Telephone encounter Note* Telephone Encounter - Naty Haddad LPN - 05/02/2024 8:22 AM EST ----- Message from Cory Box PA-C sent at 05/01/2024 10:11 PM EST ----- No infection in the urine JENIFFER Gaona MT, PA-C [facility]12-03-2024 Telephone encounter Note* Telephone Encounter - Araseli Ramos RN - 04/30/2024 12:25 PM EST Patient notified of results. Patient verbalizes understanding. Araseli Ramos RN [facility]12-03-2024 Miscellaneous Notes* Telephone Encounter - Araseli Ramos RN - 04/30/2024 12:25 PM EST Patient notified of results. Patient verbalizes understanding. Araseli Ramos RN * Telephone Encounter - Denae Monk MA - 04/30/2024 8:53 AM EST Left message for patient to contact office. Denae Monk MA * Telephone Encounter - Will Brannon MD - 04/29/2024 5:25 PM EST Let patient know mammo was ok. documented in this encounterOur [facility]12-[facility]24 Telephone encounter Note * Telephone Encounter - Denae Monk MA - 04/30/2024 8:53 AM EST Left message for patient to contact office. Denae Monk MA [facility]12-02-2024 Telephone encounter Note* Telephone Encounter - Will Brannon MD - 04/29/2024 5:25 PM EST Let patient know mammo was ok. [facility] Telephone encounter Note* Telephone Encounter - Bayron Arriaga RN - 04/26/2024 9:23 AM EST Pt returned call and given provider's message below with verbalized understanding. Patient agreeable. [facility]11-29-[facility]24 Miscellaneous Notes* Telephone Encounter - Bayron Arriaga RN - 04/26/2024 9:23 AM EST Pt returned call and given provider's message below with verbalized understanding. Patient agreeable. * Telephone Encounter - Denae Monk MA - 04/26/2024 8:47 AM EST Left message for patient to contact office. Denae Monk MA * Telephone Encounter - Will Brannon MD - 04/25/2024 1:20 PM EST Let patient know thyroid nodules are stable. Will repeat in a year. documented in this encounterOur [facility]11-29-2024 Telephone encounter Note * Telephone Encounter - Denae Monk MA - 04/26/2024 8:47 AM EST Left message for patient to contact office. Denae Monk MA [facility]11-28-2024 Telephone encounter Note* Telephone Encounter - Will Brannon MD - 04/25/2024 1:20 PM EST Let patient know thyroid nodules are stable. Will repeat in a year. [facility]11-27-[facility] History of Present illness Narrative* Jaimee Trujillo RT(R) - 04/24/2024 3:40 PM EST Radiology Service Progress Note PATIENT NAME: Debby Bailon DATE OF SERVICE: April 24, 2024 TIME: 3:37 PM PATIENT IDENTITY VERIFICATION COMPLETED USING TWO (2) IDENTIFIERS: Name and Date of confirmedby patient verbally. FALL SCREENING: Has the patient had 2 falls in the last year or 1 fall with injury or currently using an Ambulatory Assistive Device (Walker, Cane, Wheelchair, Crutches, etc.)? No PATIENT GENDER DATA: Female. status: : No status: NO. PATIENT RELEVANT IMPLANT DATA REVIEWED: Not Applicable PATIENT PRESENTS WITH AN IMPLANTABLE OR ATTACHED LOGISTIC MANAGER: No RADIOLOGY DEPARTMENT: Mammography PERIPHERAL IV DATA: Not applicable SIGNED BY: RT Shell(Qing) April 24, 2024 3:37 PM documented in this encounterOur [facility]-21-[facility] History of Present illness Narrative* Megan Armijo RDMS - 04/18/2024 4:00 PM EST Radiology Service Progress Note PATIENT NAME: Debby Bailon DATE OF SERVICE: April 18, 2024 TIME: 4:16 PM PATIENT IDENTITY VERIFICATION COMPLETED USING TWO (2) IDENTIFIERS: Name and Date of confirmedby patient verbally. FALL SCREENING: Has the patient had 2 falls in the last year or 1 fall with injury or currently using an Ambulatory Assistive Device (Walker, Cane, Wheelchair, Crutches, etc.)? No PATIENT GENDER DATA: Female. status: : No status: NO. PATIENT RELEVANT IMPLANT DATA REVIEWED: Not Applicable PATIENT PRESENTS WITH AN IMPLANTABLE OR ATTACHED LOGISTIC MANAGER: No RADIOLOGY DEPARTMENT: Ultrasound PERIPHERAL IV DATA: Not applicable SIGNED BY: Megan Armijo RDMS RVT April 18, 2024 4:16 PM documented in this encounterOur [facility] Of [facility]11-18-2024 History of Present illness Narrative* Jos Alexander MD - 04/15/2024 1:22 PM EST (Elements copied from my note dated March 21, 2024, have been reviewed and updated where appropriate, and all reflect current assessment and medical decision making from today's encounter, 2023) HISTORY OF PRESENT ILLNESS: Debby Bailon is a 43 year old female end of September 2023 started withUTI, wound up getting admitted to [facility] October 2023, was pretty sick from description. CT abd done, showed splenic infarcts. Saw hematology at that time, placed on ac October 2023, discharged on eliquis. She is now feeling much better. Was having left sided abd pain, did not start to feel better till she got home Mother had stroke in her 30's but was attributed to stress, she dies ultimately of DM. Limited coag work up was negative for myeloproliferative process, PNH. Had 1 miscarriage. Was tld she can't have kids because of her other health issues, Family history negative for clotting issues, although father is adopted. Was sent home from hospital with 4 months of eliquis Phone follow up, stopped eliquis late February 2024. 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 CLINICAL IMPRESSION: Splenic infarct, follow up US normal RECOMMENDATION/PLAN: 1. No further anticoagulation at this time. 2. She'll call with any concerns or changes in the future. Written and verbal health teaching given to patient, patient verbalizes understanding and agrees with treatment plan. PAST MEDICAL HISTORY Diagnosis Date Amputation of left great toe ([facility]) 06/25/2020 Arthritis started age 19 Bilateral leg edema 07/16/2018 Cervical radiculopathy 05/02/2013 Chronic pain 02/12/[address] ([facility]) 09/30/2021 Constipation due to outlet dysfunction 10/07/2021 Cyst of ovary 11/28/2011 Diabetes mellitus with peripheral vascular disease ([facility]) 03/29/2023 Diabetic eye exam ([facility]) 06/17/2016 Last done: 01/25/2017 Diabetic eye exam (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 Elevated LFTs 03/11/2020 Essential hypertension 02/21/2019 Fatty liver 03/11/2020 US 10/2019 History of amputation of left great toe (HCC) 06/25/[address] 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 Will monitor. Lipomeningocele, sacral level 09/12/2013 Lumbago 02/12/2015 Major depressive disorder, recurrent, mild ([facility]) 03/29/2023 Medicare annual wellness visit, subsequent 02/28/2018 last done: 02/28/2018 Migraine without aura and without status migrainosus, not intractable 10/18/2016 Miscarriage Mixed hyperlipidemia 02/28/2018 Moderate recurrent major depression (HCC) 09/28/2023 Muscle weakness of left lower extremity 08/07/2013 Neck pain 05/02/2013 Neurogenic bladder 02/12/2015 Neurogenic bowel 01/06/2016 Neuropathy 02/12/2015 post back surgery with secondary infection. Seeing Dr. Gregg Non-compliance 09/02/2022 Even stated in endocrine note from 09/01/2022 Numbness and tingling of left arm and leg 08/07/2013 Obesity, Class II, BMI 35-39.9 02/12/2015 Panic attacks Paroxysmal SVT (supraventricular tachycardia) (HCC) 07/03/2017 Per 48 Hr event monitor 06/30/2017 Primary insomnia 02/17/2016 S/P hernia repair 12/11/2017 Spina bifida (HCC) 01/06/2016 Spinal stenosis of cervical region 06/26/2023 Thyroid cyst 01/01/2018 Complex right sided cysts. US 12/2017, biopsy per Dr. Josue 01/23/2018 benign. Repeat US in a year. 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 nl AMPUTATION TOE,MT-P JT Left 02/11/2020 left big toe CATH, SUPRAPUBIC/CYSTOSCOPIC 11/07/2018 COLOSTOMY 10/01/2021 CYSTOSCOPY,REMV CALCULUS,COMPLIC 11/10/2020 DILATION & CURETTAGE DX&/THER NONOBSTETRIC Dilation & curettage EGD W/O BRSH SPEC VARICIES INJ 03/25/2024 dr josue HERNIA REPAIR W/MESH 2019 LEXISCAN STRESS TEST 07/20/2018 negative NUCLEAR STRESS LEXISCAN (CARD) 10/24/2018 negative PAST SURGICAL HISTORY OF 2010 cholecystectomy PAST SURGICAL HISTORY OF 09/2012 back surgery x2 PAST SURGICAL HISTORY OF Left & 02/2014 foot x2 PAST SURGICAL HISTORY OF 07/2015 ABD procedure; Bowles stoma PAST SURGICAL HISTORY OF 09/30/2021 Laparoscopic end colostomy PAST SURGICAL HISTORY OF Left 01/2021 bone removed left foot REPAIR UMBILICAL HERNIA 12/11/2017 STRESS ECHO 12/09/2019 Negative STRESS TEST 07/18/2017 normal STRESS TEST 03/15/2018 negative THYROID FINE NEEDLE ASPIRATION Right 04/13/2023 right mid thyroid FAMILY HISTORY Problem Relation Age of Onset Arthritis Mother Diabetes Mother Heart Mother Hypertension Mother Lipids Mother Stroke Mother Thyroid Mother Thyroid Father Cancer Father Skin No Known Problems Brother Cancer Maternal Grandmother LIVER CANCER Cancer Maternal Uncle Great Uncle Cancer Maternal Uncle Great Uncle Anesthesia Problems No Family History Social History Tobacco Use Smoking status: Never Smokeless tobacco: Never Vaping Use Vaping status: Never Used Substance Use Topics Alcohol use: Not Currently Comment: social Drug use: Never ALLERGIES: ALLERGIES Allergen Reactions Ceftriaxone Anaphylaxis Had skin testing on 12/09 at allergy office which was positive. Also had prior anaphylactic reactionon 09/30/2021. Patient should avoid ceftriaxone and all other cephalosporins. She has tolerated amoxicillin outpatient in the past. Cephalosporins Anaphylaxis Patient had anaphylaxis pre-op on 09/30 when this was given with other induction agents. Patient hadskin testing on 12/09/21 which was positive to ceftriaxone (see separate note from same day). Pleaseavoid all cephalosporins. Mushroom Anaphylaxis Peanut Anaphylaxis Peanuts Anaphylaxis Latex Rash Gabapentin Mental Status Change Patient reports having cognitive/memory issues after taking Mri Contrast [Gadol* GI Upset CURRENT OUTPATIENT MEDICATIONS: atorvastatin (LIPITOR) 80 mg tablet Take 1 tablet by mouth once daily. furosemide (LASIX) 20 mg tablet Take 1 tablet by mouth once daily. Take in evening furosemide (LASIX) 40 mg tablet Take 1 tablet by mouth once daily. Take in morning traZODone (DESYREL) 100 mg tablet Take 1 tablet by mouth daily at bedtime. omeprazole (PRILOSEC) 20 mg capsule Take 1 capsule by mouth once daily. ELIQUIS 5 mg tab(s) Take 1 tablet by mouth two times a day. (Patient taking differently: Take 5 mg by mouth two times a day. ON HOLD) pregabalin (LYRICA) 75 mg capsule Take 1 capsule by mouth two times a day for 180 days. Urinary Bag (URINARY LEG BAG) kit Use as directed with suprapublic catheter. Urinary Bag (UROSTOMY NIGHT BAG) misc Urinary Night Bag. Use as directed with suprapublic catheter. insulin aspart, niacinamide, (FIASP FLEXTOUCH U-100 INSULIN) 100 unit/mL (3 mL) pen Inject 20 unitswith meals (three times daily) PLUS SS#2 (2 units for every 50 over 150 PRE MEAL blood sugar) TDD~90 units daily insulin glargine (LANTUS SOLOSTAR U-100 INSULIN) 100 unit/mL (3 mL) Inject 40 units once daily Blood-Glucose Sensor (FREESTYLE ROSA 3 SENSOR) tara CHANGE SENSOR EVERY 14 DAYS, USE FOR CONTINUOUS GLUCOSE MONITORING. MULTIPLE INSULIN INJECTIONS. Blood-Glucose Meter,Continuous (FREESTYLE ROSA 3 READER) [facility] DIS[facility] ONE READER KIT. USE FOR CONTINUOUS GLUCOSE MONITORING. MULTIPLE INSULIN INJECTIONS. E11.9 Drainage Bag misc 1 Each every 2 weeks. loratadine (CLARITIN) 10 mg tablet Take 1 tablet by mouth once daily. propranolol (INDERAL) 20 mg tablet Take 1 tablet by mouth two times a day. oxybutynin ER (DITROPAN XL) 15 mg 24 hr Extended Rel Tab Take 1 tablet by mouth once daily. DULoxetine (CYMBALTA) 30 mg capsule Take 30 mg by mouth once daily. busPIRone (BUSPAR) 15 mg tablet Take 15 mg by mouth once daily. acetaminophen (TYLENOL) 500 mg tablet Take 650 mg by mouth every 6 hours as needed. lisinopril (ZESTRIL, PRINIVIL) 5 mg tablet Take 1 tablet by mouth once daily. Per Dr. Ermias Salomon sodium chloride irrig solution (NACL 0.9% IRRIGATION BOTTLE) To use for catheter irrigation daily or as needed. Insulin [place], Disposable, (COMFORT EZ PEN NEEDLES) 29 gauge x 1/2 One needle with each lantus shot once a day. Dx: E13.29 on insulin PSEUDOEPHEDRINE HCL ORAL Take 30 mg by mouth as needed. ondansetron orally disintegrating (ZOFRAN ODT) 8 mg disintegrating tablet Take 8 mg by mouth every 8 hours as needed for nausea/vomiting. fluticasone (FLONASE) 50 mcg/actuation nasal spray Use 2 Sprays in each nostril once daily. Rinse mouth after use. Insulin [place], Disposable, 32 gauge x 5/16 ndle Use once daily with Victoza COMPOUNDED PRESCRIPTION Stoma catheter tube. DX: Qo5.4 and K59.2 REVIEW OF SYSTEMS: GENERAL: No fever, night sweats, weight loss or malaise. All other reviewed and negative other than HPI. PHYSICAL EXAMINATION: VITAL SIGNS: LMP 03/11/2024 GENERAL APPEARANCE: Well appearing, in no acute distress, alert and oriented x3, well-hydrated, well nourished. I spent a total of 20 minutes on the date of the service which included preparing to see the patient, [id number] patient care, completing clinical documentation, obtaining and/or reviewing separately obtained history, counseling and educating the patient/family/caregiver, independently interpretin g results (not separately reported), and communicating results to the patient/family/caregiver. Electronically Signed: Jos Alexander MD April 15, 2024 documented in this encounterOur [facility]11-13-2024 History of Present illness Narrative* Will Brannon MD - 04/10/2024 3:48 PM EST Chief Complaint Patient presents with: F/U 6 months HPI Debby Bailon is a 43 year old female who presents here today for 6 month follow up . Patient history complex hx of uncontrolled DM, hyperlipidemia, HTN, abdifatah leg edema, Dysthmia, panic attacks, spina bifida, thyroid cyst, periferal neuropathy, migraines, obesity, neurogenic bowel and bladder, indwelling suprapubic cath, leg edema, chronic pain HLD, DM2 c/b amputation of L great toe, chronic constipation s/p colostomy 09/2021, neurogenic bladder d/t spina bifida managed with monthlySPT exchanges since 08/2018 (18Fr - last done 01/06/23) c/b bladder stones s/p cystolithalopaxy with Dr. Sears 11/10/2020. Patient has never been good at being compliant with her care. She was released from seeing Dr. Roland due to this and is now seeing Nilda Underwood for her diabeties. Her back surgery is on hold until her A1c is better. Patient still with the counseling center and says her depression has been doing much better. Her anxiety has been slightly worse with the the health issues she has been dealing with. Patient has been noting difficulty swallowing and had a scope that showed acid reflux so she was concerned about the thyroid cyst may be larger. She discussed this with the LEAD INSPECTOR in general surgery at her office visit on 04/01/2024 which is documented in the note but no US order was placed. There is times that she will choke/cough with swallowing things. The inderal continues to control her migraines very well. Past medical history, appointments, medications, allergies reviewed. Previous Medical History PAST MEDICAL HISTORY Diagnosis Date Amputation of left great toe ([facility]) 06/25/2020 Arthritis started age 19 Bilateral leg edema 07/16/2018 Cervical radiculopathy 05/02/2013 Chronic pain 02/12/[address] ([facility]) 09/30/2021 Constipation due to outlet dysfunction 10/07/2021 Cyst of ovary 11/28/2011 Diabetes mellitus with peripheral vascular disease ([facility]) 03/29/2023 Diabetic eye exam ([facility]) 06/17/2016 Last done: 01/25/2017 Diabetic eye exam (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 Will monitor. Lipomeningocele, sacral level 09/12/2013 Lumbago 02/12/2015 Major depressive disorder, recurrent, mild ([facility]) 03/29/2023 Medicare annual wellness visit, subsequent 02/28/2018 last done: 02/28/2018 Migraine without aura and without status migrainosus, not intractable 10/18/2016 Miscarriage Mixed hyperlipidemia 02/28/2018 Muscle weakness of left lower extremity 08/07/2013 Neck pain 05/02/2013 Neurogenic bladder 02/12/2015 Neurogenic bowel 01/06/2016 Neuropathy 02/12/2015 post back surgery with secondary infection. Seeing Dr. Gregg Non-compliance 09/02/2022 Even stated in endocrine note from 09/01/2022 Numbness and tingling of left arm and leg 08/07/2013 Obesity, Class II, BMI 35-39.9 02/12/2015 Panic attacks Paroxysmal SVT (supraventricular tachycardia) (HCC) 07/03/2017 Per 48 Hr event monitor 06/30/2017 Primary insomnia 02/17/2016 S/P hernia repair 12/11/2017 Spina bifida (HCC) 01/06/2016 Thyroid cyst 01/01/2018 Complex right sided cysts. US 12/2017, biopsy per Dr. Josue 01/23/2018 benign. Repeat US in a year. 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 nl AMPUTATION TOE,MT-P JT Left 02/11/2020 left big toe CATH, SUPRAPUBIC/CYSTOSCOPIC 11/07/2018 COLOSTOMY 10/01/2021 CYSTOSCOPY,REMV CALCULUS,COMPLIC 11/10/2020 DILATION & CURETTAGE DX&/THER NONOBSTETRIC Dilation & curettage EGD W/O BRSH SPEC VARICIES INJ 03/25/2024 dr josue HERNIA REPAIR W/MESH 2019 LEXISCAN STRESS TEST 07/20/2018 negative NUCLEAR STRESS LEXISCAN (CARD) 10/24/2018 negative PAST SURGICAL HISTORY OF 2010 cholecystectomy PAST SURGICAL HISTORY OF 09/2012 back surgery x2 PAST SURGICAL HISTORY OF Left & 02/2014 foot x2 PAST SURGICAL HISTORY OF 07/2015 ABD procedure; Bowles stoma PAST SURGICAL HISTORY OF 09/30/2021 Laparoscopic end colostomy PAST SURGICAL HISTORY OF Left 01/2021 bone removed left foot REPAIR UMBILICAL HERNIA 12/11/2017 STRESS ECHO 12/09/2019 Negative STRESS TEST 07/18/2017 normal STRESS TEST 03/15/2018 negative THYROID FINE NEEDLE ASPIRATION Right 04/13/2023 right mid thyroid Family History FAMILY HISTORY Problem Relation Age of Onset Arthritis Mother Diabetes Mother Heart Mother Hypertension Mother Lipids Mother Stroke Mother Thyroid Mother Thyroid Father Cancer Father Skin No Known Problems Brother Cancer Maternal Grandmother LIVER CANCER Cancer Maternal Uncle Great Uncle Cancer Maternal Uncle Great Uncle Anesthesia Problems No Family History Patient Allergies ALLERGIES Allergen Reactions Ceftriaxone Anaphylaxis Had skin testing on 12/09 at allergy office which was positive. Also had prior anaphylactic reactionon 09/30/2021. Patient should avoid ceftriaxone and all other cephalosporins. She has tolerated amoxicillin outpatient in the past. Cephalosporins Anaphylaxis Patient had anaphylaxis pre-op on 09/30 when this was given with other induction agents. Patient hadskin testing on 12/09/21 which was positive to ceftriaxone (see separate note from same day). Pleaseavoid all cephalosporins. Mushroom Anaphylaxis Peanut Anaphylaxis Peanuts Anaphylaxis Latex Rash Gabapentin Mental Status Change Patient reports having cognitive/memory issues after taking Mri Contrast [Gadol* GI Upset Current Medications Current Outpatient Medications on File Prior to Visit Medication Sig omeprazole (PRILOSEC) 20 mg capsule Take 1 capsule by mouth once daily. ELIQUIS 5 mg tab(s) Take 1 tablet by mouth two times a day. (Patient taking differently: Take 5 mg by mouth two times a day. ON HOLD) pregabalin (LYRICA) 75 mg capsule Take 1 capsule by mouth two times a day for 180 days. Urinary Bag (URINARY LEG BAG) kit Use as directed with suprapublic catheter. Urinary Bag (UROSTOMY NIGHT BAG) misc Urinary Night Bag. Use as directed with suprapublic catheter. insulin aspart, niacinamide, (FIASP FLEXTOUCH U-100 INSULIN) 100 unit/mL (3 mL) pen Inject 20 unitswith meals (three times daily) PLUS SS#2 (2 units for every 50 over 150 PRE MEAL blood sugar) TDD~90 units daily insulin glargine (LANTUS SOLOSTAR U-100 INSULIN) 100 unit/mL (3 mL) Inject 40 units once daily Blood-Glucose Sensor (FREESTYLE ROSA 3 SENSOR) tara CHANGE SENSOR EVERY 14 DAYS, USE FOR CONTINUOUS GLUCOSE MONITORING. MULTIPLE INSULIN INJECTIONS. Blood-Glucose Meter,Continuous (FREESTYLE ROSA 3 READER) [facility] DISPENSE ONE READER KIT. USE FOR CONTINUOUS GLUCOSE MONITORING. MULTIPLE INSULIN INJECTIONS. E11.9 Drainage Bag misc 1 Each every 2 weeks. furosemide (LASIX) 20 mg tablet Take 1 tablet by mouth once daily. Take in evening loratadine (CLARITIN) 10 mg tablet Take 1 tablet by mouth once daily. traZODone (DESYREL) 100 mg tablet Take 1 tablet by mouth daily at bedtime. propranolol (INDERAL) 20 mg tablet Take 1 tablet by mouth two times a day. oxybutynin ER (DITROPAN XL) 15 mg 24 hr Extended Rel Tab Take 1 tablet by mouth once daily. furosemide (LASIX) 40 mg tablet Take 1 tablet by mouth once daily. Take in morning atorvastatin (LIPITOR) 80 mg tablet Take 1 tablet by mouth once daily. DULoxetine (CYMBALTA) 30 mg capsule Take 30 mg by mouth once daily. busPIRone (BUSPAR) 15 mg tablet Take 15 mg by mouth once daily. acetaminophen (TYLENOL) 500 mg tablet Take 650 mg by mouth every 6 hours as needed. lisinopril (ZESTRIL, PRINIVIL) 5 mg tablet Take 1 tablet by mouth once daily. Per Dr. Ermias Salomon sodium chloride irrig solution (NACL 0.9% IRRIGATION BOTTLE) To use for catheter irrigation daily or as needed. Insulin [place], Disposable, (COMFORT EZ PEN NEEDLES) 29 gauge x 1/2 One needle with each lantus shot once a day. Dx: E13.29 on insulin ondansetron orally disintegrating (ZOFRAN ODT) 8 mg disintegrating tablet Take 8 mg by mouth every 8 hours as needed for nausea/vomiting. fluticasone (FLONASE) 50 mcg/actuation nasal spray Use 2 Sprays in each nostril once daily. Rinse mouth after use. Insulin [place], Disposable, 32 gauge x 5/16 ndle Use once daily with Victoza COMPOUNDED PRESCRIPTION Stoma catheter tube. DX: Qo5.4 and K59.2 PSEUDOEPHEDRINE HCL ORAL Take 30 mg by mouth as needed. No current facility-administered medications on file prior to visit. Social History Social History Tobacco Use Smoking status: Never Smokeless tobacco: Never Vaping Use Vaping status: Never Used Substance Use Topics Alcohol use: Not Currently Comment: social Drug use: Never Review of Symptoms REVIEW OF SYSTEMS GENERAL: No weight loss, malaise or fevers RESPIRATORY: Negative for cough, hemoptysis, wheezing, COPD, dyspnea or shortness of breath CARDIOVASCULAR: Negative for chest pain (just some recently that was anxiety related), increased.leg swelling, hypertension, CHF. Se was also having palpitations but once her scope was completed thisstopped as well. GI: getting some nausea at times and seems to be more often. PSYCH: See HPI NEURO: No history of syncope, paralysis, seizures or tremors. See HPI EXAM: BP 114/74 Pulse 88 Resp 18 Wt 98.9 kg (218 lb) LMP 03/11/2024 (Exact Date) BMI 39.86 kg/m Last 6 Encounter Wt Readings: Date: Wt: 04/10/2024 98.9 kg (218 lb) 03/25/2024 98.4 kg (216 lb 14.9 oz) 03/21/2024 100.5 kg (221 lb 8 oz) 03/04/2024 98.4 kg (217 lb) 01/03/2024 96.7 kg (213 lb 3.2 oz) 12/20/2023 98 kg (216 lb) General Appearance: Well appearing, alert, in no acute distress, well-hydrated, well nourished. andObese. Neck: Supple, no adenopathy; thyroid symmetric, normal size, no bruits. Lungs: Lungs clear to auscultation. No wheezing, rhonchi, rales.. Heart: RRR without murmur, gallop, or rubs. No ectopy. Abdomen: Normal abdominal exam, Abdomen soft, non-tender. Bowel sounds normal. No masses, organomegaly. Extremities: No deformities, edema, skin discoloration, Good capillary refill. . Peripheral Pulses: Normal. Neurologic: Gait normal. . Sensation to light touch in the upper extremities and face was normal. Crainal nerves 2-12 intact.. Eyes: pupils equally round and reactive to light/extra ocular muscles intact. Health Maintenance List BP Controlled (<130/80) due on 07/28/2022 Dilated Retinal Exam due on 10/26/2023 HbA1C due on 01/02/2024 Influenza Vaccine(1) due on 01/28/2024 Mammogram Screening due on 04/05/2024 Cervical Cancer Screening due on 05/02/2024 LDL Cholesterol due on 10/01/2024 Annual PCP Team Chronic Disease Visit due on 04/10/2025 DTaP,Tdap,Td Vaccine(3 - Td or Tdap) due on 03/23/2031 Pneumococcal Vaccine(3 of 3 - PPSV23 or PCV20) due on 2046 Hepatitis C Screening Completed HIV Screening Completed HPV Vaccine Aged Out Hepatitis B Vaccine Discontinued Urine Albumin:Creatinine Ratio Discontinued Diabetic Foot Exam Discontinued Covid-19 Vaccine Discontinued Data reviewed A/P ASSESSMENT/PLAN: 1. 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) - ICD9: 250.40, 791.0, ICD10: E11.29, R80.9 (primary diagnosis) - Uncontrolled - Counseled on healthy diet and regular exercise - Discussed need for and benefit of weight loss. BMI 39.86 kg/(m^2) - patient being managed per Endo 2. 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) - ICD9: 250.40, 791.0, ICD10: E11.29, R80.9 - as per #1 3. Diabetes mellitus with peripheral vascular disease (HCC) - ICD9: 250.70, 443.81, ICD10: E11.51 - as per #1 4. Diabetic eye exam ([facility]) - ICD9: V72.0, 250.00, ICD10: Z01.00, E11.9 - has eye exam set up for next month 5. Essential hypertension - ICD9: 401.9, ICD10: I10 - Controlled - Continue current medications - Recommend home blood pressure monitoring, to bring results to next visit - Encouraged sodium restriction, DASH or Mediterranean diet - Recommend regular aerobic exercise - Discussed need for and benefit of weight loss. BMI 39.86 kg/(m^2) 6. Mixed hyperlipidemia - ICD9: 272.2, ICD10: E78.2 - has labs pending per Endo in early Apr. - Continue current medications - Counseled on healthy diet and regular exercise - Discussed need for and benefit of weight loss. BMI 39.86 kg/(m^2) 7. Paroxysmal SVT (supraventricular tachycardia) ([facility]) - ICD9: 427.0, ICD10: I47.10 - stable at this time. Seems to be more anxiety related. 8. Primary insomnia - ICD9: 307.42, ICD10: F51.01 - controlled with Trazodone. 9. Neuropathy - ICD9: 355.9, ICD10: G62.9 - on Lyrica per Neuro 10. Bilateral leg edema - ICD9: 782.3, ICD10: R60.0 - stable cont lasix. 11. Anxiety and depression - ICD9: 300.00, 311, ICD10: F41.9, F32.A - on meds and managed per psych 12. Dysthymic disorder - ICD9: 300.4, ICD10: F34.1 - as per #11 13. Major depressive disorder, recurrent, mild (HCC) - ICD9: 296.31, ICD10: F33.0 - as per #11 14. Panic attacks - ICD9: 300.01, ICD10: F41.0 - as per #11 15. Migraine without aura and without status migrainosus, not intractable - ICD9: 346.10, ICD10: G43.009 - stable on the propranolol. 16. Thyroid cyst - ICD9: 246.2, ICD10: E04.1 Check - US THYROID/PARATHYROID - THYROID STIMULATING HORMONE 17. Hypomagnesemia - ICD9: 275.2, ICD10: E83.42 - check Mg 18. Lipomeningocele (HCC) - ICD9: 741.90, ICD10: Q05.9 - follows with neuro 19. Obesity, Class II, BMI 35-39.9 - ICD9: 278.00, ICD10: E66.812 - patient to work on weight loss. 20. Spina bifida, unspecified hydrocephalus presence, unspecified spinal region (HCC) - ICD9: 741.90, ICD10: Q05.9 - as per #18 21. Encounter for screening mammogram for breast cancer - ICD9: V76.12, ICD10: Z12.31 Check - ANGIE SCREENING 22. Esophageal dysphagia - ICD9: 787.29, ICD10: R13.19 - will check a swallowing study with PH[facility]ICAL [facility]Y at [facility]. 23. Nausea - ICD9: 787.02, ICD10: R11.0 - will check a gastric emptying study. Requested Prescriptions Signed Prescriptions Disp Refills atorvastatin (LIPITOR) 80 mg tablet 90 tablet 1 Sig: Take 1 tablet by mouth once daily. furosemide (LASIX) 20 mg tablet 90 tablet 1 Sig: Take 1 tablet by mouth once daily. Take in evening furosemide (LASIX) 40 mg tablet 90 tablet 1 Sig: Take 1 tablet by mouth once daily. Take in morning traZODone (DESYREL) 100 mg tablet 90 tablet 1 Sig: Take 1 tablet by mouth daily at bedtime. F/u 6 months extensive I spent a total of 40 minutes on the date of the service which included preparing to see the patient, mixa-fp-xqpa patient care, completing clinical documentation, performing a medically appropriate examination, counseling and educating the patient/family/caregiver and ordering medications, tests, or procedures. Will Brannon MD [facility]. MICRO - Microbiology PROCEDURE: Urine Culture [O1 *1] SOURCE: Urine, Cook Catheter BODY SITE: COLLECTED DATE/TIME: 04/07/2024 00:07 EST RECEIVED DATE/TIME: 04/07/2024 13:33 EST START DATE/TIME: 04/07/2024 13:33 EST FREE TEXT SOURCE: FINAL REPORTS Final Report [] Verified Date/Time/Personnel: 04/08/2024 10:18 EST >100,000 cfu/ml Multiple bacterial morphotypes present. Probable Contamination. Suggest recollection if clinically indicated. Order Comments O1: Urine Culture Added by Discern Performing Locations *1: This test was performed at: [facility], [address] [place] [address], [facility]- , [facility]11-10-2024 Evaluation + Plan note Diagnostic Tests Pending * Urine Culture 04/07/[address] [facility] 11-10-2024 Hospital Discharge instructions Patient Education 04/06/2024 23:59:05 Abdominal Pain Abdominal Pain Abdominal pain is pain in the stomach or belly area. Everyone has this pain from time to time. In many cases it goes away on its own. But abdominal pain can sometimes be due to a serious problem, such as appendicitis. So it s important to know when to get help. Causes of abdominal pain There are many possible causes of abdominal pain. Common causes in adults include: Constipation, diarrhea, or gas Stomach acid flowing back up into the esophagus (acid reflux or heartburn) Severe acid reflux, called GERD (gastroesophageal reflux disease) A sore in the lining of the stomach or small intestine (peptic ulcer) Inflammation of the gallbladder, liver, or pancreas Gallstones or kidney stones Appendicitis Intestinal blockage An internal organ pushing through a muscle or other tissue (hernia) Urinary tract infections In women, menstrual cramps, fibroids, ovarian cysts, pelvic inflammatory disease, or endometriosis Inflammation or infection of the intestines, including Crohn's disease and ulcerative colitis Irritable bowel syndrome Diagnosing the cause of abdominal pain Your healthcare provider will give you a physical exam help find the cause of your pain. If needed,you will have tests. Belly pain has many possible causes. So it can be hard to find the reason for your pain. Giving details about your pain can help. Tell your provider where and when you feel the pain, and what makes it better or worse. Also let your provider know if you have other symptoms such as: Fever Tiredness Upset stomach (nausea) Vomiting Changes in bathroom habits Blood in the stool or black, tarry stool Weight loss that you can't explain (involuntary weight loss?) Also report any family history of stomach or intestinal problems, or cancers. Tell your provider about all your alcohol use and drug use. Tell your provider about all medicines you use, including herbs, vitamins, and supplements. Treating abdominal pain Some causes of pain need emergency medical treatment right away. These include appendicitis or a bowel blockage. Other problems can be treated with rest, fluids, or medicines. Your healthcare provider can give you specific instructions for treatment or self-care based on what is causing your pain. If you have vomiting or diarrhea, sip water or other clear fluids. When you are ready to eat solid foods again, start with small amounts of xobc-la-plyevp, low- fat foods. These include apple sauce, toast, or crackers. When to get medical care Call 911 or go to the hospital right away if you: Can t pass stool and are vomiting Are vomiting blood or have bloody diarrhea or black, tarry diarrhea Have chest, neck, or shoulder pain Feel like you might pass out Have pain in your shoulder blades with nausea Have sudden, severe belly pain Have new, severe pain unlike any you have felt before Have a belly that is rigid, hard, and hurts to touch Call your healthcare provider if you have: Pain for more than 5 days Bloating for more than 2 days Diarrhea for more than 5 days A fever of 100.4 F (38 C) or higher, or as directed by your healthcare provider Pain that gets worse Weight loss for no reason Continued lack of appetite Blood in your stool How to prevent abdominal pain Here are some tips to help prevent abdominal pain: Eat smaller amounts of food at each meal. Don't eat greasy, fried, or other high-fat foods. Don't eat foods that give you gas. Exercise regularly. Drink plenty of fluids. To help prevent GERD symptoms: Quit smoking. Reduce alcohol and foods that increase stomach acid. Don't use aspirin or mewb-veo-ulxqpwt pain and fever medicines, if possible. This includes nonsteroidal anti-inflammatory drugs (NSAIDs). Lose excess weight. Finish eating at least 2 hours before you go to bed or lie down. Raise the head of your bed. 8595-8927 [employer]. [address] [place] [address]. All rights reserved. This information is not intended as a substitute for professional medical care. Always follow yourhealthcare professional's instructions. Follow Up Care 04/06/2024 23:37:12 With:WILL BRANNON MD Address: [address] [place] [address]- When:2-[address] [facility] 11-10-2024 Note Discharge Instructions Thank you for allowing [facility] to assist you with your healthcare needs. The following is importantdischarge information regarding your hospital visit. Diagnosis from Today's Visit Abdominal pain Nausea What to Do Next Instructions from Your Care Team Discharge Return to Work, School, or Sports (Return to Work, School, or Sports) - Ordered -- 04/08/24, May return to: work, 04/07/24 1:33:00 EST Post Acute Orders No qualifying data available. You Need to Schedule the Following Appointments Follow Up with WILL BRANNON MD When:Within 2-4 days Where:[address] [place] [address]- Allergies Mushrooms(Severe) Throat swelling Peanuts(Severe) Throat swelling Rocephin(Severe) Hives cephalosporins(Severe) Anaphylaxis, Hives gabapentin (Moderate) psychotic breakdown Latex (Mild) Hives contrast media (gadolinium-based) penicillin Unknown vancomycin Medications Please ask your primary doctor or pharmacist before taking any other medication not listed, including over the counter drugs, herbal medications, vitamins and or supplements as they may interact withyour home medications. What How Much When Instructions Last Dose New sulfamethoxazole-trimethoprim (Bactrim DS 800 mg-160 mg oral tablet) 1 tab(s) by mouth Every 12 hours Duration: 10 Days Printed Prescription Please take this list to your next doctor s visit. Bring all medications you take, including over the counter medications, herbals and other supplements with you to your doctor s visit. Patients and families are reminded to discard old lists and to update any records with all medication providers or retail pharmacies. Education Materials Abdominal Pain Abdominal pain is pain in the stomach or belly area. Everyone has this pain from time to time. In many cases it goes away on its own. But abdominal pain can sometimes be due to a serious problem, such as appendicitis. So it s important to know when to get help. Causes of abdominal pain There are many possible causes of abdominal pain. Common causes in adults include: Constipation, diarrhea, or gas Stomach acid flowing back up into the esophagus (acid reflux or heartburn) Severe acid reflux, called GERD (gastroesophageal reflux disease) A sore in the lining of the stomach or small intestine (peptic ulcer) Inflammation of the gallbladder, liver, or pancreas Gallstones or kidney stones Appendicitis Intestinal blockage An internal organ pushing through a muscle or other tissue (hernia) Urinary tract infections In women, menstrual cramps, fibroids, ovarian cysts, pelvic inflammatory disease, or endometriosis Inflammation or infection of the intestines, including Crohn's disease and ulcerative colitis Irritable bowel syndrome Diagnosing the cause of abdominal pain Your healthcare provider will give you a physical exam help find the cause of your pain. If needed,you will have tests. Belly pain has many possible causes. So it can be hard to find the reason for your pain. Giving details about your pain can help. Tell your provider where and when you feel the pain, and what makes it better or worse. Also let your provider know if you have other symptoms such as: Fever Tiredness Upset stomach (nausea) Vomiting Changes in bathroom habits Blood in the stool or black, tarry stool Weight loss that you can't explain (involuntary weight loss?) Also report any family history of stomach or intestinal problems, or cancers. Tell your provider about all your alcohol use and drug use. Tell your provider about all medicines you use, including herbs, vitamins, and supplements. Treating abdominal pain Some causes of pain need emergency medical treatment right away. These include appendicitis or a bowel blockage. Other problems can be treated with rest, fluids, or medicines. Your healthcare provider can give you specific instructions for treatment or self-care based on what is causing your pain. If you have vomiting or diarrhea, sip water or other clear fluids. When you are ready to eat solid foods again, start with small amounts of amte-cs-acncbo, low- fat foods. These include apple sauce, toast, or crackers. When to get medical care Call 911 or go to the hospital right away if you: Can t pass stool and are vomiting Are vomiting blood or have bloody diarrhea or black, tarry diarrhea Have chest, neck, or shoulder pain Feel like you might pass out Have pain in your shoulder blades with nausea Have sudden, severe belly pain Have new, severe pain unlike any you have felt before Have a belly that is rigid, hard, and hurts to touch Call your healthcare provider if you have: Pain for more than 5 days Bloating for more than 2 days Diarrhea for more than 5 days A fever of 100.4 F (38 C) or higher, or as directed by your healthcare provider Pain that gets worse Weight loss for no reason Continued lack of appetite Blood in your stool How to prevent abdominal pain Here are some tips to help prevent abdominal pain: Eat smaller amounts of food at each meal. Don't eat greasy, fried, or other high-fat foods. Don't eat foods that give you gas. Exercise regularly. Drink plenty of fluids. To help prevent GERD symptoms: Quit smoking. Reduce alcohol and foods that increase stomach acid. Don't use aspirin or ugvy-tpx-qinhwpj pain and fever medicines, if possible. This includes nonsteroidal anti-inflammatory drugs (NSAIDs). Lose excess weight. Finish eating at least 2 hours before you go to bed or lie down. Raise the head of your bed. 2454-3727 [employer]. [address] [place] [address]. All rights reserved. This information is not intended as a substitute for professional medical care. Always follow yourhealthcare professional's instructions. Additional Information VACCINATE! IT SAVES LIVES! Members of the community who have not yet received the COVID-19 vaccine and would like to receive it can visit one of [facility] vaccine clinics. There are many vaccine clinic locations within the [facility]. For locations and available times, please visit www.[email or web address].[email or web address]/. It is important to note that some COVID mobile vaccine clinics are held outdoors and may be canceled in rainy or stormy conditions. To learn more about pediatric vaccinations (ages 5-11), we invite you to visit the [facility] webpage. [email or web address]/[email or web address] [email or web address].htmlTo learn more about the COVID-19 vaccine, we invite you to visit the CDC website for a list of frequently asked questions. https://www.cdc.gov/coronavirus/2019-ncov/vaccines/faq.html [email or web address] Patient Portal Access Instructions: Stay connected with your healthcare team and access your personal medical information anytime with the [email or web address] Patient Portal. If you would like a full copy of your medical records please contact the [facility] Medical Records Department Monday through Monday between 8a.m. and 4:30p.m. Please follow the directions below to access the portal: 1.Access the email account you provided upon registration to the [facility].2.Look for an invitation email from [facility].3.Open the email and access the invitation link: Accept Invitation to [email or web address].Fill in the required hartley to create your account. Sign into www.[employer] with your username and password that you created in the above steps to stay up to date. You can then view a summary of results, a summary of your visits, and the ability to download your summaries to your computer or send the information securely to a physician. Remember that your healthcare information is confidential, so carefully consider who you will allow to register on the [email or web address] Patient Portal for access to your information. You can also access the [email or web address] Patient Portal on the [employer]. Simply click on Health Records under [employer] and then click on the [employer] logo. HOW TO SAFELY DISPOSE OF PRESCRIPTION MEDICATIONS Please use one of the following methods to safely dispose of your unused medications. 1.Use a drug disposal kit: the drug disposal pouch allows you to safely discard your old and unuseddrugs. Ask your nurse to give you one when you are discharged.2.Visit a local take-back location: Many local pharmacies and police departments have programs that collect old and unwanted prescriptiondrugs. Call your local pharmacy or go to http://[employer]/2R8Js7o to find one close to you.3.Make use of household items: Use cat litter or old coffee grounds to dispose medications if other options arenot available. Mix your drugs with these household products, seal them in an airtight container andthrow it into the garbage. Call [facility]: [phone] to be sure your drugs can be disposed of in this way. Some medicines may require a different approach.4.Never flush your medications down the toilet. IF YOU HAVE BEEN PRESCRIBED AN OPIOIDS FOR PAIN If you have been prescribed an opioid (such as hydrocodone, oxycodone or morphine), it is critical to understand the possible side effects and risks of opioid pain medications. Even when taken as directed, opioids can have several side effects including: Tolerance, meaning you might need to take more of a medication for the same pain relief. Nausea, vomiting and/or constipation. Sleepiness, dizziness, dry mouth, confusion, depression or itching. Physical dependence, meaning you have withdrawal symptoms when a medication is stopped ? this can develop within a few days. KNOW YOUR RESPONSIBILITIES It is important to know exactly how much and how often to take the opioid pain medications you are prescribed. Never take opioids in higher amounts or more often than prescribed. Do not combine opioids with alcohol or other drugs that cause drowsiness, such as benzodiazepines, also known as benzos,including diazepam and alprazolam, muscle relaxants or sleep aids. Never sell or share prescriptionopioids. This is illegal. Store opioids in a secure place and out of reach of others (including children, family, friends and visitors). The last page(s) of this document has been signed and retained as a CHART COPY Signatures Patient Education Materials Abdominal Pain Medication Leaflets My discharge plan and instructions have been reviewed and explained to me and IUVALDO ANGELA Lunderstand my current condition and have read and understand these discharge instructions. I have received a written copy of the plan/instructions. If I have questions, I am aware that I should contact my doctor. 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11-10-2024 Note ORIGINAL EXAMINATION: CT OF THE ABDOMEN AND PELVIS WITH CONTRAST 04/07/2024 12:54 am TECHNIQUE: CT of the abdomen and pelvis was performed with the administration of intravenous contrast. Multiplanar reformatted images are provided for review. Automated exposure control, iterative reconstruction, and/or weight based adjustment of the mA/kV was utilized to reduce the radiation dose to as low as reasonably achievable. COMPARISON: CT abdomen and pelvis on 02/03/2024 HISTORY: ORDERING SYSTEM PROVIDED HISTORY: Reason for Exam: Right flank pain Nausea, vomiting, chills. FINDINGS: Lower Chest: No acute findings. Organs: The liver, post cholecystectomy biliary tree, pancreas, spleen, adrenal glands, and kidneys show no sign of acute abnormality. Nonobstructing stone in the lower pole the right kidney measuring 5 mm is unchanged. There is no ureteral stone or obstruction. GI/Bowel: The stomach and duodenum are unremarkable. There is no obstruction or inflammation of the small intestine. 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 There is a peristomal hernia with diameter of 13 cm that contains multiple loops of colon. The neck of this hernia is large and there is no obstruction or inflammation. The hernia is unchanged compared with prior exam. There is an umbilical hernia with diameter of 2.3 cm. The appendix protrudes into the umbilical hernia without inflammation. This is also unchanged. There is no free intraperitoneal air or abnormal fluid collection in the abdomen. Pelvis: Suprapubic catheter in the urinary bladder is in place. There is unchanged bladder wall thickening around the catheter balloon. Uterus and adnexal structures are unremarkable. There is no abnormal fluid collection in the pelvis. Peritoneum/Retroperitoneum: There is no retroperitoneal lymph node enlargement. Abdominal aorta and inferior vena cava are normal in size. Bones/Soft Tissues: No acute osseous abnormality. IMPRESSION: 1. No acute intra-abdominal or pelvic abnormality. 2. 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 There is no obstruction or inflammation. 3. Umbilical hernia containing the appendix. There is no inflammation. 4. Suprapubic catheter in urinary bladder with unchanged bladder wall thickening. 5. Nonobstructing right kidney stone. Interpreted by: Oc Mae MD Preliminary Report By: Oc Mae MD Electronically signed By Oc Mae MD Dictated Date: 04/07/2024 12:56:01 AM Prelim Date: 04/07/2024 1:03:32 AM Sign Date: 04/07/2024 1:03:32 AM Ordering Provider: [facility]11-05-2024 History of Present illness Narrative* Naty Haddad LPN - 04/02/2024 3:43 PM EST CC Supra pubic catheter in Place HPI: Debby Bailon is a 43 year old female. The patient is here now for a supra pubic catheter change with diagnosis neurogenic bladder. Procedure: Performed a catheter change. The indwelling supra pubic cook size 18 Fr was removed with catheter tip intact without difficulties. Inserted 18 Fr catheter using aseptic technique. Irrigated with 60 mL 0.9% sodium chloride. Approximately 60 mLs pink return noted throughout. Bulb inflated with 30 mLs prefilled syringes- sterile water. T-Sponge applied to SPT base per patient preference attached todrainage bag. The patient tolerated the procedure well. Patient does not like tubing secured. Assessment/Plan: Successful catheter change. Return for catheter changes as planned. Naty Haddad LPN [facility] History of Present illness Narrative* Mellisa Paul APRN.BURIAL AGENT - 04/01/2024 3:00 PM EST FOLLOW UP VISIT - ENDOSCOPY Debby Bailon 1980 [id number] REFERRING PHYSICIAN: Xavier Josue III [address] [address] Debby Bailon is a patient I am following for heartburn & dysphagia. Dr. Josue performedupper endoscopy on 03/25/24. The patient was found to have Impression: - Z-line regular, 35 cm from the incisors. Biopsied. - A medium amount of food (residue) in the stomach. Biopsied. - Normal examined duodenum. Biopsied. Pathology demonstrated: FINAL DIAGNOSIS A. Duodenum, biopsy: -Duodenal mucosa with preserved villous architecture. -No increase in intraepithelial lymphocytes. B. Antrum, biopsy: -Mild chronic inactive gastritis and reactive change in antral mucosa. -Negative for intestinal metaplasia or dysplasia. -H. pylori immunostain with reported as an addendum.- not resulted yet 03/29 C. Distal esophagus, biopsy: -Squamous epithelium with reactive changes. No intraepithelial eosinophils. D. Mid esophagus, biopsy: -Squamous epithelium with no diagnostic abnormality. No intraepithelial eosinophils. The patient notes continued difficulty swallowing. She notes she has issue with foods and pills andmust drink a lot of water to get them down. She notes she has a known right sided thyroid nodule that Dr. Josue has been following. She is due for her years thyroid US. She feels like the nodule isgetting larger. Debby notes she was hospitalized in the summer & was dx with H. Pylori. She states she was only treated with antibiotics. VITALS: There were no vitals taken for this visit. General: patient is alert, cooperative, pleasant and in no acute distress On examination, the abdomen is benign. Assessment ASSESSMENT/PLAN: 1. Oropharyngeal dysphagia - ICD9: 787.22, ICD10: R13.12 - Start Prilosec 20mg daily x 3 mos - We discussed esophageal manometry as the next step & she would like to complete thyroid US first as she believes this is the reason for the difficulty swallowing. The operative findings and pathology report were reviewed with the patient, and the patient has hadthe opportunity to ask questions and have questions answered. If the patient notes any problems or changes in bowel function, the patient should contact me immediately. Otherwise I recommend follow up endoscopy as needed. HM updated and recall letter generated. Discussed treatment plan and patient voices understanding. Patient's questions answered appropriately. Medications and potential side effects were discussed and patient voices understanding. Return to the office as scheduled or as needed for worsening/no improvement. Mellisa Paul APRN.BURIAL AGENT documented in this encounterOur [facility] Nurse Note* May Coreas RN - 03/25/2024 9:46 AM EDT pt arrived to phase 2 awake/ resting on left side. SR up x 2, call light in reach. May Coreas RN [facility] Nurse Note* May Coreas RN - 03/25/2024 9:46 AM EDT pt arrived to phase 2 awake/ resting on left side. SR up x 2, call light in reach. May Coreas RN documented in this encounterOur [facility]10-28-2024 Note* Discharge Instr - Nursing - May Coreas RN - 03/25/2024 9:43 AM EDT The patient received a copy of EGD discharge instructions that contain information for how to contact the physician who performed the procedure and when to seek medical care. [facility] Miscellaneous Notes* Discharge Instr - Nursing - May Coreas RN - 03/25/2024 9:43 AM EDT The patient received a copy of EGD discharge instructions that contain information for how to contact the physician who performed the procedure and when to seek medical care. documented in this encounterOur [facility]10-28-2024 History and physical note * Xavier Josue MD - 03/25/2024 8:30 AM EDT HISTORY AND PHYSICAL Debby Bailon 1980 REFERRING PHYSICIAN: Will Brannon MD CHIEF COMPLAINT: Consult HPI: The patient is a 43 year old female referred for endoscopy. Debby notes no history of colon complaints. The patient notes the following upper complaints: Debby denies abdominal pain.. Debby notes heartburn. Debby notes dysphagia. Debby denies a history of ulcers/ peptic ulcer disease. Patient was recently in the emergency department. Workup was negative for cardiac. Debby has not undergone prior endoscopy. The patient is being seen by me today at the request of Dr. Will Brannon MD for my opinion andadvice regarding Oropharyngeal dysphagia (primary encounter diagnosis). PAST MEDICAL HISTORY PAST MEDICAL HISTORY Diagnosis Date Amputation of left great toe ([facility]) 06/25/2020 Arthritis started age 19 Bilateral leg edema 07/16/2018 Cervical radiculopathy 05/02/2013 Chronic pain 02/12/[address] ([facility]) 09/30/2021 Constipation due to outlet dysfunction 10/07/2021 Cyst of ovary 11/28/2011 Diabetes mellitus with peripheral vascular disease ([facility]) 03/29/2023 Diabetic eye exam ([facility]) 06/17/2016 Last done: 01/25/2017 Diabetic eye exam (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 Will monitor. Lipomeningocele, sacral level 09/12/2013 Lumbago 02/12/2015 Major depressive disorder, recurrent, mild ([facility]) 03/29/2023 Medicare annual wellness visit, subsequent 02/28/2018 last done: 02/28/2018 Migraine without aura and without status migrainosus, not intractable 10/18/2016 Miscarriage Mixed hyperlipidemia 02/28/2018 Muscle weakness of left lower extremity 08/07/2013 Neck pain 05/02/2013 Neurogenic bladder 02/12/2015 Neurogenic bowel 01/06/2016 Neuropathy 02/12/2015 post back surgery with secondary infection. Seeing Dr. Gregg Non-compliance 09/02/2022 Even stated in endocrine note from 09/01/2022 Numbness and tingling of left arm and leg 08/07/2013 Obesity, Class II, BMI 35-39.9 02/12/2015 Panic attacks Paroxysmal SVT (supraventricular tachycardia) (HCC) 07/03/2017 Per 48 Hr event monitor 06/30/2017 Primary insomnia 02/17/2016 S/P hernia repair 12/11/2017 Spina bifida (HCC) 01/06/2016 Thyroid cyst 01/01/2018 Complex right sided cysts. US 12/2017, biopsy per Dr. Josue 01/23/2018 benign. Repeat US in a year. 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 nl AMPUTATION TOE,MT-P JT Left 02/11/2020 left big toe CATH, SUPRAPUBIC/CYSTOSCOPIC 11/07/2018 COLOSTOMY 10/01/2021 CYSTOSCOPY,REMV CALCULUS,COMPLIC 11/10/2020 DILATION & CURETTAGE DX&/THER NONOBSTETRIC Dilation & curettage HERNIA REPAIR W/MESH 2019 LEXISCAN STRESS TEST 07/20/2018 negative NUCLEAR STRESS LEXISCAN (CARD) 10/24/2018 negative PAST SURGICAL HISTORY OF 2010 cholecystectomy PAST SURGICAL HISTORY OF 09/2012 back surgery x2 PAST SURGICAL HISTORY OF Left & 02/2014 foot x2 PAST SURGICAL HISTORY OF 07/2015 ABD procedure; Bowles stoma PAST SURGICAL HISTORY OF 09/30/2021 Laparoscopic end colostomy PAST SURGICAL HISTORY OF Left 01/2021 bone removed left foot REPAIR UMBILICAL HERNIA 12/11/2017 STRESS ECHO 12/09/2019 Negative STRESS TEST 07/18/2017 normal STRESS TEST 03/15/2018 negative THYROID FINE NEEDLE ASPIRATION Right 04/13/2023 right mid thyroid CURRENT MEDICATIONS Current Outpatient Medications Medication Sig ELIQUIS 5 mg tab(s) Take 1 tablet by mouth two times a day. pregabalin (LYRICA) 75 mg capsule Take 1 capsule by mouth two times a day for 180 days. Urinary Bag (URINARY LEG BAG) kit Use as directed with suprapublic catheter. Urinary Bag (UROSTOMY NIGHT BAG) misc Urinary Night Bag. Use as directed with suprapublic catheter. insulin aspart, niacinamide, (FIASP FLEXTOUCH U-100 INSULIN) 100 unit/mL (3 mL) pen Inject 20 unitswith meals (three times daily) PLUS SS#2 (2 units for every 50 over 150 PRE MEAL blood sugar) TDD~90 units daily insulin glargine (LANTUS SOLOSTAR U-100 INSULIN) 100 unit/mL (3 mL) Inject 40 units once daily Blood-Glucose Sensor (FREESTYLE ROSA 3 SENSOR) tara CHANGE SENSOR EVERY 14 DAYS, USE FOR CONTINUOUS GLUCOSE MONITORING. MULTIPLE INSULIN INJECTIONS. Blood-Glucose Meter,Continuous (FREESTYLE ROSA 3 READER) [facility] DIS[facility] ONE READER KIT. USE FOR CONTINUOUS GLUCOSE MONITORING. MULTIPLE INSULIN INJECTIONS. E11.9 Drainage Bag misc 1 Each every 2 weeks. furosemide (LASIX) 20 mg tablet Take 1 tablet by mouth once daily. Take in evening loratadine (CLARITIN) 10 mg tablet Take 1 tablet by mouth once daily. traZODone (DESYREL) 100 mg tablet Take 1 tablet by mouth daily at bedtime. propranolol (INDERAL) 20 mg tablet Take 1 tablet by mouth two times a day. oxybutynin ER (DITROPAN XL) 15 mg 24 hr Extended Rel Tab Take 1 tablet by mouth once daily. furosemide (LASIX) 40 mg tablet Take 1 tablet by mouth once daily. Take in morning atorvastatin (LIPITOR) 80 mg tablet Take 1 tablet by mouth once daily. DULoxetine (CYMBALTA) 30 mg capsule Take 30 mg by mouth once daily. busPIRone (BUSPAR) 15 mg tablet Take 15 mg by mouth once daily. acetaminophen (TYLENOL) 500 mg tablet Take 650 mg by mouth every 6 hours as needed. lisinopril (ZESTRIL, PRINIVIL) 5 mg tablet Take 1 tablet by mouth once daily. Per Dr. Ermias Salomon sodium chloride irrig solution (NACL 0.9% IRRIGATION BOTTLE) To use for catheter irrigation daily or as needed. Insulin [place], Disposable, (COMFORT EZ PEN NEEDLES) 29 gauge x 1/2 One needle with each lantus shot once a day. Dx: E13.29 on insulin PSEUDOEPHEDRINE HCL ORAL Take 30 mg by mouth as needed. ondansetron orally disintegrating (ZOFRAN ODT) 8 mg disintegrating tablet Take 8 mg by mouth every 8 hours as needed for nausea/vomiting. fluticasone (FLONASE) 50 mcg/actuation nasal spray Use 2 Sprays in each nostril once daily. Rinse mouth after use. Insulin [place], Disposable, 32 gauge x 5/16 ndle Use once daily with Victoza COMPOUNDED PRESCRIPTION Stoma catheter tube. DX: Qo5.4 and K59.2 No current facility-administered medications for this visit. ALLERGIES: Ceftriaxone, Cephalosporins, Mushroom, Peanut, Peanuts, Latex, Gabapentin, and Mri Contrast [Gadolinium-Containing Contrast Media] PERSONAL HISTORY: SOCIAL HISTORY Social History Tobacco Use Smoking status: Never Smokeless tobacco: Never Vaping Use Vaping status: Never Used Substance Use Topics Alcohol use: Not Currently Comment: social Drug use: Never FAMILY HISTORY: FAMILY HISTORY FAMILY HISTORY Problem Relation Age of Onset Arthritis Mother Diabetes Mother Heart Mother Hypertension Mother Lipids Mother Stroke Mother Thyroid Mother Thyroid Father Cancer Father Skin No Known Problems Brother Cancer Maternal Grandmother LIVER CANCER Cancer Maternal Uncle Great Uncle Cancer Maternal Uncle Great Uncle Anesthesia Problems No Family History REVIEW OF SYMPTOMS: The review of systems data was entered by the nurse and reviewed by me There are no exam notes on file for this visit. PHYSICAL EXAMINATION: General: The patient is 43 year old female, well nourished, well hydrated in no acute distress. Thepatient is oriented to time, place, and person. VITALS: Blood pressure 118/88, pulse (!) 127, temperature 36.2 C (97.1 F), temperature source Temporal, height 157.5 cm (5' 2.01), weight 98.4 kg (217 lb), last menstrual period 11/17/2023, SpO2 96%. Body mass index is 39.68 kg/m . HEENT: Normal cephalic, ataumatic, pupils are equally round, sclera are anicteric, mucous membranesare moist, oropharynx is clear. Neck has no masses, asymmetry or lymphadenopathy. Thyroid is unremarkable. Respiratory: Clear to auscultation and percussion. Normal respiratory excursion and pattern. Cardiac: Examination is regular rate and rhythm. Abdominal exam: Soft, nontender, with no palpable masses. No hepatosplenomegaly. No palpable hernias. Rectal exam: exam deferred Extremities: no clubbing, cyanosis or edema. No adenopathy. Other: LABORATORY VALUES: As Noted RADIOLOGIC STUDIES: As Noted Assessment IMPRESSION: Oropharyngeal dysphagia (primary encounter diagnosis) PLAN: I plan to perform upper endoscopy. We discussed the risks and benefits of the planned endoscopy. I have informed the patient that complications can occur including failure to complete the endoscopy and perforation. The patient had the opportunity to ask questions concerning the planned endoscopy. My staff has also explained the procedure to the patient in understandable terms and has given the patient printed material concerning the procedure. The patient freely consents to surgery. Diagnoses: (R13.12) Oropharyngeal dysphagia (primary encounter diagnosis) My findings have been communicated to Dr. Will Brannon MD via shared medical record. This notewill be forwarded to Dr. Will Brannon MD. Return to Clinic: The patient is instructed to follow-up with me 1 week post operatively. Xavier Josue III, MD UPDATED HISTORY AND PHYSICAL EXAMINATION SERVICE DATE: 03/25/2024 SERVICE TIME: 8:42 AM SENSITIVE EXAMINATION CONSENT: The sensitive examination was discussed with the Patient or Patient's Authorized Electric Truck Driver. Asapplicable, any other physician, advance practice provider, medical student, or other health professional student that will be observing or involved in the sensitive examination for educational or training purposes was discussed with the Patient or Authorized Electric Truck Driver. The Patient or Authorized Electric Truck Driver has agreed to proceed with the sensitive examination. (Sensitive examination includes inspection and/or palpation of the breasts, pelvis, prostate and anorectal regions) PHYSICAL EXAM MUST BE COMPLETED ON ADMISSION The History and Physical (completed in the past 30 days) has been reviewed and the patient has beenexamined. The contents accurately reflect the patient's condition with the following additions or revisions since the H&P was completed. Examination indicates no changes. This H&P can be found in the attached. SIGNATURE: Xavier Josue III, MD PATIENT NAME: Debby Bailon DATE: March 25, 2024 TIME: 8:42 AM [facility] History and physical note* Xavier Josue MD - 03/25/2024 8:30 AM EDT HISTORY AND PHYSICAL Debby Bailon 1980 REFERRING PHYSICIAN: Will Brannon MD CHIEF COMPLAINT: Consult HPI: The patient is a 43 year old female referred for endoscopy. Debby notes no history of colon complaints. The patient notes the following upper complaints: Debby denies abdominal pain.. Debby notes heartburn. Debby notes dysphagia. Debby denies a history of ulcers/ peptic ulcer disease. Patient was recently in the emergency department. Workup was negative for cardiac. Debby has not undergone prior endoscopy. The patient is being seen by me today at the request of Dr. Will Brannon MD for my opinion andadvice regarding Oropharyngeal dysphagia (primary encounter diagnosis). PAST MEDICAL HISTORY PAST MEDICAL HISTORY Diagnosis Date Amputation of left great toe (HCC) 06/25/2020 Arthritis started age 19 Bilateral leg edema 07/16/2018 Cervical radiculopathy 05/02/2013 Chronic pain 02/12/[address] ([facility]) 09/30/2021 Constipation due to outlet dysfunction 10/07/2021 Cyst of ovary 11/28/2011 Diabetes mellitus with peripheral vascular disease (HCC) 03/29/2023 Diabetic eye exam ([facility]) 06/17/2016 Last done: 01/25/2017 Diabetic eye exam (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 Will monitor. Lipomeningocele, sacral level 09/12/2013 Lumbago 02/12/2015 Major depressive disorder, recurrent, mild (HCC) 03/29/2023 Medicare annual wellness visit, subsequent 02/28/2018 last done: 02/28/2018 Migraine without aura and without status migrainosus, not intractable 10/18/2016 Miscarriage Mixed hyperlipidemia 02/28/2018 Muscle weakness of left lower extremity 08/07/2013 Neck pain 05/02/2013 Neurogenic bladder 02/12/2015 Neurogenic bowel 01/06/2016 Neuropathy 02/12/2015 post back surgery with secondary infection. Seeing Dr. Gregg Non-compliance 09/02/2022 Even stated in endocrine note from 09/01/2022 Numbness and tingling of left arm and leg 08/07/2013 Obesity, Class II, BMI 35-39.9 02/12/2015 Panic attacks Paroxysmal SVT (supraventricular tachycardia) (HCC) 07/03/2017 Per 48 Hr event monitor 06/30/2017 Primary insomnia 02/17/2016 S/P hernia repair 12/11/2017 Spina bifida (HCC) 01/06/2016 Thyroid cyst 01/01/2018 Complex right sided cysts. US 12/2017, biopsy per Dr. Josue 01/23/2018 benign. Repeat US in a year. 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 nl AMPUTATION TOE,MT-P JT Left 02/11/2020 left big toe CATH, SUPRAPUBIC/CYSTOSCOPIC 11/07/2018 COLOSTOMY 10/01/2021 CYSTOSCOPY,REMV CALCULUS,COMPLIC 11/10/2020 DILATION & CURETTAGE DX&/THER NONOBSTETRIC Dilation & curettage HERNIA REPAIR W/MESH 2019 LEXISCAN STRESS TEST 07/20/2018 negative NUCLEAR STRESS LEXISCAN (CARD) 10/24/2018 negative PAST SURGICAL HISTORY OF 2010 cholecystectomy PAST SURGICAL HISTORY OF 09/2012 back surgery x2 PAST SURGICAL HISTORY OF Left & 02/2014 foot x2 PAST SURGICAL HISTORY OF 07/2015 ABD procedure; Bowles stoma PAST SURGICAL HISTORY OF 09/30/2021 Laparoscopic end colostomy PAST SURGICAL HISTORY OF Left 01/2021 bone removed left foot REPAIR UMBILICAL HERNIA 12/11/2017 STRESS ECHO 12/09/2019 Negative STRESS TEST 07/18/2017 normal STRESS TEST 03/15/2018 negative THYROID FINE NEEDLE ASPIRATION Right 04/13/2023 right mid thyroid CURRENT MEDICATIONS Current Outpatient Medications Medication Sig ELIQUIS 5 mg tab(s) Take 1 tablet by mouth two times a day. pregabalin (LYRICA) 75 mg capsule Take 1 capsule by mouth two times a day for 180 days. Urinary Bag (URINARY LEG BAG) kit Use as directed with suprapublic catheter. Urinary Bag (UROSTOMY NIGHT BAG) misc Urinary Night Bag. Use as directed with suprapublic catheter. insulin aspart, niacinamide, (FIASP FLEXTOUCH U-100 INSULIN) 100 unit/mL (3 mL) pen Inject 20 unitswith meals (three times daily) PLUS SS#2 (2 units for every 50 over 150 PRE MEAL blood sugar) TDD~90 units daily insulin glargine (LANTUS SOLOSTAR U-100 INSULIN) 100 unit/mL (3 mL) Inject 40 units once daily Blood-Glucose Sensor (FREESTYLE ROSA 3 SENSOR) tara CHANGE SENSOR EVERY 14 DAYS, USE FOR CONTINUOUS GLUCOSE MONITORING. MULTIPLE INSULIN INJECTIONS. Blood-Glucose Meter,Continuous (FREESTYLE ROSA 3 READER) misc DISPENSE ONE READER KIT. USE FOR CONTINUOUS GLUCOSE MONITORING. MULTIPLE INSULIN INJECTIONS. E11.9 Drainage Bag misc 1 Each every 2 weeks. furosemide (LASIX) 20 mg tablet Take 1 tablet by mouth once daily. Take in evening loratadine (CLARITIN) 10 mg tablet Take 1 tablet by mouth once daily. traZODone (DESYREL) 100 mg tablet Take 1 tablet by mouth daily at bedtime. propranolol (INDERAL) 20 mg tablet Take 1 tablet by mouth two times a day. oxybutynin ER (DITROPAN XL) 15 mg 24 hr Extended Rel Tab Take 1 tablet by mouth once daily. furosemide (LASIX) 40 mg tablet Take 1 tablet by mouth once daily. Take in morning atorvastatin (LIPITOR) 80 mg tablet Take 1 tablet by mouth once daily. DULoxetine (CYMBALTA) 30 mg capsule Take 30 mg by mouth once daily. busPIRone (BUSPAR) 15 mg tablet Take 15 mg by mouth once daily. acetaminophen (TYLENOL) 500 mg tablet Take 650 mg by mouth every 6 hours as needed. lisinopril (ZESTRIL, PRINIVIL) 5 mg tablet Take 1 tablet by mouth once daily. Per Dr. Ermias Salomon sodium chloride irrig solution (NACL 0.9% IRRIGATION BOTTLE) To use for catheter irrigation daily or as needed. Insulin [place], Disposable, (COMFORT EZ PEN NEEDLES) 29 gauge x 1/2 One needle with each lantus shot once a day. Dx: E13.29 on insulin PSEUDOEPHEDRINE HCL ORAL Take 30 mg by mouth as needed. ondansetron orally disintegrating (ZOFRAN ODT) 8 mg disintegrating tablet Take 8 mg by mouth every 8 hours as needed for nausea/vomiting. fluticasone (FLONASE) 50 mcg/actuation nasal spray Use 2 Sprays in each nostril once daily. Rinse mouth after use. Insulin [place], Disposable, 32 gauge x 5/16 ndle Use once daily with Victoza COMPOUNDED PRESCRIPTION Stoma catheter tube. DX: Qo5.4 and K59.2 No current facility-administered medications for this visit. ALLERGIES: Ceftriaxone, Cephalosporins, Mushroom, Peanut, Peanuts, Latex, Gabapentin, and Mri Contrast [Gadolinium-Containing Contrast Media] PERSONAL HISTORY: SOCIAL HISTORY Social History Tobacco Use Smoking status: Never Smokeless tobacco: Never Vaping Use Vaping status: Never Used Substance Use Topics Alcohol use: Not Currently Comment: social Drug use: Never FAMILY HISTORY: FAMILY HISTORY FAMILY HISTORY Problem Relation Age of Onset Arthritis Mother Diabetes Mother Heart Mother Hypertension Mother Lipids Mother Stroke Mother Thyroid Mother Thyroid Father Cancer Father Skin No Known Problems Brother Cancer Maternal Grandmother LIVER CANCER Cancer Maternal Uncle Great Uncle Cancer Maternal Uncle Great Uncle Anesthesia Problems No Family History REVIEW OF SYMPTOMS: The review of systems data was entered by the nurse and reviewed by me There are no exam notes on file for this visit. PHYSICAL EXAMINATION: General: The patient is 43 year old female, well nourished, well hydrated in no acute distress. Thepatient is oriented to time, place, and person. VITALS: Blood pressure 118/88, pulse (!) 127, temperature 36.2 C (97.1 F), temperature source Temporal, height 157.5 cm (5' 2.01), weight 98.4 kg (217 lb), last menstrual period 11/17/2023, SpO2 96%. Body mass index is 39.68 kg/m . HEENT: Normal cephalic, ataumatic, pupils are equally round, sclera are anicteric, mucous membranesare moist, oropharynx is clear. Neck has no masses, asymmetry or lymphadenopathy. Thyroid is unremarkable. Respiratory: Clear to auscultation and percussion. Normal respiratory excursion and pattern. Cardiac: Examination is regular rate and rhythm. Abdominal exam: Soft, nontender, with no palpable masses. No hepatosplenomegaly. No palpable hernias. Rectal exam: exam deferred Extremities: no clubbing, cyanosis or edema. No adenopathy. Other: LABORATORY VALUES: As Noted RADIOLOGIC STUDIES: As Noted Assessment IMPRESSION: Oropharyngeal dysphagia (primary encounter diagnosis) PLAN: I plan to perform upper endoscopy. We discussed the risks and benefits of the planned endoscopy. I have informed the patient that complications can occur including failure to complete the endoscopy and perforation. The patient had the opportunity to ask questions concerning the planned endoscopy. My staff has also explained the procedure to the patient in understandable terms and has given the patient printed material concerning the procedure. The patient freely consents to surgery. Diagnoses: (R13.12) Oropharyngeal dysphagia (primary encounter diagnosis) My findings have been communicated to Dr. Will Brannon MD via shared medical record. This notewill be forwarded to Dr. Will Brannon MD. Return to Clinic: The patient is instructed to follow-up with me 1 week post operatively. Xavier Josue III, MD UPDATED HISTORY AND PHYSICAL EXAMINATION SERVICE DATE: 03/25/2024 SERVICE TIME: 8:42 AM SENSITIVE EXAMINATION CONSENT: The sensitive examination was discussed with the Patient or Patient's Authorized Electric Truck Driver. Asapplicable, any other physician, advance practice provider, medical student, or other health professional student that will be observing or involved in the sensitive examination for educational or training purposes was discussed with the Patient or Authorized Electric Truck Driver. The Patient or Authorized Electric Truck Driver has agreed to proceed with the sensitive examination. (Sensitive examination includes inspection and/or palpation of the breasts, pelvis, prostate and anorectal regions) PHYSICAL EXAM MUST BE COMPLETED ON ADMISSION The History and Physical (completed in the past 30 days) has been reviewed and the patient has beenexamined. The contents accurately reflect the patient's condition with the following additions or revisions since the H&P was completed. Examination indicates no changes. This H&P can be found in the attached. SIGNATURE: Xavier Josue III, MD PATIENT NAME: Debby Bailon DATE: March 25, 2024 TIME: 8:42 AM documented in this encounterOur [facility] History of Present illness Narrative* Jos Alexander MD - 03/21/2024 2:54 PM EDT (Elements copied from my note dated December 20, 2023, have been reviewed and updated where appropriate, and all reflect current assessment and medical decision making from today's encounter, February) HISTORY OF PRESENT ILLNESS: Debby Bailon is a 43 year old female end of September 2023 started withUTI, wound up getting admitted to [facility] October 2023, was pretty sick from description. CT abd done, showed splenic infarcts. Saw hematology at that time, placed on ac October 2023, discharged on eliquis. She is now feeling much better. Was having left sided abd pain, did not start to feel better till she got home Mother had stroke in her 30's but was attributed to stress, she dies ultimately of DM. Limited coag work up was negative for myeloproliferative process, PNH. Had 1 miscarriage. Was tld she can't have kids because of her other health issues, Family history negative for clotting issues, although father is adopted. Was sent home from hospital with 4 months of eliquis CLINICAL IMPRESSION: Splenic infarct, follow up US normal RECOMMENDATION/PLAN: 1. Stop anticoagulation. 2. Hypercoag panel in 2 weeks or so, follow up after that to review Written and verbal health teaching given to patient, patient verbalizes understanding and agrees with treatment plan. PAST MEDICAL HISTORY Diagnosis Date Amputation of left great toe (HCC) 06/25/2020 Arthritis started age 19 Bilateral leg edema 07/16/2018 Cervical radiculopathy 05/02/2013 Chronic pain 02/12/[address] (HCC) 09/30/2021 Constipation due to outlet dysfunction 10/07/2021 Cyst of ovary 11/28/2011 Diabetes mellitus with peripheral vascular disease (HCC) 03/29/2023 Diabetic eye exam ([facility]) 06/17/2016 Last done: 01/25/2017 Diabetic eye exam (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 Will monitor. Lipomeningocele, sacral level 09/12/2013 Lumbago 02/12/2015 Major depressive disorder, recurrent, mild ([facility]) 03/29/2023 Medicare annual wellness visit, subsequent 02/28/2018 last done: 02/28/2018 Migraine without aura and without status migrainosus, not intractable 10/18/2016 Miscarriage Mixed hyperlipidemia 02/28/2018 Muscle weakness of left lower extremity 08/07/2013 Neck pain 05/02/2013 Neurogenic bladder 02/12/2015 Neurogenic bowel 01/06/2016 Neuropathy 02/12/2015 post back surgery with secondary infection. Seeing Dr. Gregg Non-compliance 09/02/2022 Even stated in endocrine note from 09/01/2022 Numbness and tingling of left arm and leg 08/07/2013 Obesity, Class II, BMI 35-39.9 02/12/2015 Panic attacks Paroxysmal SVT (supraventricular tachycardia) ([facility]) 07/03/2017 Per 48 Hr event monitor 06/30/2017 Primary insomnia 02/17/2016 S/P hernia repair 12/11/2017 Spina bifida (HCC) 01/06/2016 Thyroid cyst 01/01/2018 Complex right sided cysts. US 12/2017, biopsy per Dr. Josue 01/23/2018 benign. Repeat US in a year. 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 nl AMPUTATION TOE,MT-P JT Left 02/11/2020 left big toe CATH, SUPRAPUBIC/CYSTOSCOPIC 11/07/2018 COLOSTOMY 10/01/2021 CYSTOSCOPY,REMV CALCULUS,COMPLIC 11/10/2020 DILATION & CURETTAGE DX&/THER NONOBSTETRIC Dilation & curettage HERNIA REPAIR W/MESH 2018 LEXISCAN STRESS TEST 07/20/2018 negative NUCLEAR STRESS LEXISCAN (CARD) 10/24/2018 negative PAST SURGICAL HISTORY OF 2010 cholecystectomy PAST SURGICAL HISTORY OF 09/2012 back surgery x2 PAST SURGICAL HISTORY OF Left & 02/2014 foot x2 PAST SURGICAL HISTORY OF 07/2015 ABD procedure; Bowles stoma PAST SURGICAL HISTORY OF 09/30/2021 Laparoscopic end colostomy PAST SURGICAL HISTORY OF Left 01/2021 bone removed left foot REPAIR UMBILICAL HERNIA 12/11/2017 STRESS ECHO 12/09/2019 Negative STRESS TEST 07/18/2017 normal STRESS TEST 03/15/2018 negative THYROID FINE NEEDLE ASPIRATION Right 04/13/2023 right mid thyroid FAMILY HISTORY Problem Relation Age of Onset Arthritis Mother Diabetes Mother Heart Mother Hypertension Mother Lipids Mother Stroke Mother Thyroid Mother Thyroid Father Cancer Father Skin No Known Problems Brother Cancer Maternal Grandmother LIVER CANCER Cancer Maternal Uncle Great Uncle Cancer Maternal Uncle Great Uncle Anesthesia Problems No Family History Social History Tobacco Use Smoking status: Never Smokeless tobacco: Never Vaping Use Vaping status: Never Used Substance Use Topics Alcohol use: Not Currently Comment: social Drug use: Never ALLERGIES: ALLERGIES Allergen Reactions Ceftriaxone Anaphylaxis Had skin testing on 12/09 at allergy office which was positive. Also had prior anaphylactic reactionon 09/30/2021. Patient should avoid ceftriaxone and all other cephalosporins. She has tolerated amoxicillin outpatient in the past. Cephalosporins Anaphylaxis Patient had anaphylaxis pre-op on 09/30 when this was given with other induction agents. Patient hadskin testing on 12/09/21 which was positive to ceftriaxone (see separate note from same day). Pleaseavoid all cephalosporins. Mushroom Anaphylaxis Peanut Anaphylaxis Peanuts Anaphylaxis Latex Rash Gabapentin Mental Status Change Patient reports having cognitive/memory issues after taking Mri Contrast [Gadol* GI Upset CURRENT OUTPATIENT MEDICATIONS: ELIQUIS 5 mg tab(s) Take 1 tablet by mouth two times a day. pregabalin (LYRICA) 75 mg capsule Take 1 capsule by mouth two times a day for 180 days. insulin aspart, niacinamide, (FIASP FLEXTOUCH U-100 INSULIN) 100 unit/mL (3 mL) pen Inject 20 unitswith meals (three times daily) PLUS SS#2 (2 units for every 50 over 150 PRE MEAL blood sugar) TDD~90 units daily insulin glargine (LANTUS SOLOSTAR U-100 INSULIN) 100 unit/mL (3 mL) Inject 40 units once daily furosemide (LASIX) 20 mg tablet Take 1 tablet by mouth once daily. Take in evening loratadine (CLARITIN) 10 mg tablet Take 1 tablet by mouth once daily. traZODone (DESYREL) 100 mg tablet Take 1 tablet by mouth daily at bedtime. propranolol (INDERAL) 20 mg tablet Take 1 tablet by mouth two times a day. oxybutynin ER (DITROPAN XL) 15 mg 24 hr Extended Rel Tab Take 1 tablet by mouth once daily. furosemide (LASIX) 40 mg tablet Take 1 tablet by mouth once daily. Take in morning atorvastatin (LIPITOR) 80 mg tablet Take 1 tablet by mouth once daily. DULoxetine (CYMBALTA) 30 mg capsule Take 30 mg by mouth once daily. busPIRone (BUSPAR) 15 mg tablet Take 15 mg by mouth once daily. acetaminophen (TYLENOL) 500 mg tablet Take 650 mg by mouth every 6 hours as needed. lisinopril (ZESTRIL, PRINIVIL) 5 mg tablet Take 1 tablet by mouth once daily. Per Dr. Ermias Salomon PSEUDOEPHEDRINE HCL ORAL Take 30 mg by mouth as needed. ondansetron orally disintegrating (ZOFRAN ODT) 8 mg disintegrating tablet Take 8 mg by mouth every 8 hours as needed for nausea/vomiting. fluticasone (FLONASE) 50 mcg/actuation nasal spray Use 2 Sprays in each nostril once daily. Rinse mouth after use. Urinary Bag (URINARY LEG BAG) kit Use as directed with suprapublic catheter. Urinary Bag (UROSTOMY NIGHT BAG) mis Urinary Night Bag. Use as directed with suprapublic catheter. Blood-Glucose Sensor (FREESTYLE ROSA 3 SENSOR) tara CHANGE SENSOR EVERY 14 DAYS, USE FOR CONTINUOUS GLUCOSE MONITORING. MULTIPLE INSULIN INJECTIONS. Blood-Glucose Meter,Continuous (FREESTYLE ROSA 3 READER) [facility] DISPENSE ONE READER KIT. USE FOR CONTINUOUS GLUCOSE MONITORING. MULTIPLE INSULIN INJECTIONS. E11.9 Drainage Bag [facility] 1 Each every 2 weeks. sodium chloride irrig solution (NACL 0.9% IRRIGATION BOTTLE) To use for catheter irrigation daily or as needed. Insulin [place], Disposable, (COMFORT EZ PEN NEEDLES) 29 gauge x 1/2 One needle with each lantus shot once a day. Dx: E13.29 on insulin Insulin [place], Disposable, 32 gauge x 5/16 ndle Use once daily with Victoza COMPOUNDED PRESCRIPTION Stoma catheter tube. DX: Qo5.4 and K59.2 REVIEW OF SYSTEMS: GENERAL: No fever, night sweats, weight loss or malaise. All other reviewed and negative other than HPI. PHYSICAL EXAMINATION: VITAL SIGNS: BP 127/82 Pulse 77 Temp (Src) 98 (Temporal) Wt 221 lb 8 oz (100.5kg) SpO2 98% LMP 11/17/2023 GENERAL APPEARANCE: Well appearing, in no acute distress, alert and oriented x3, well-hydrated, well nourished. I spent a total of 30 minutes on the date of the service which included preparing to see the patient, [id number] patient care, completing clinical documentation, obtaining and/or reviewing separately obtained history, counseling and educating the patient/family/caregiver, independently interpretin g results (not separately reported), and communicating results to the patient/family/caregiver. Electronically Signed: Jos Alexander MD March 21, 2024 documented in this encounterOur [facility]10-[facility] History of Present illness Narrative* Mikala Williamson, [facility] - 03/18/2024 1:00 PM EDT Radiology Service Progress Note PATIENT NAME: Debby Bailon DATE OF SERVICE: March 18, 2024 TIME: 2:10 PM PATIENT IDENTITY VERIFICATION COMPLETED USING TWO (2) IDENTIFIERS: Name and Date of confirmedby patient verbally. FALL SCREENING: Has the patient had 2 falls in the last year or 1 fall with injury or currently using an Ambulatory Assistive Device (Walker, Cane, Wheelchair, Crutches, etc.)? No PATIENT GENDER DATA: Female. status: : No status: NO. PATIENT RELEVANT IMPLANT DATA REVIEWED: Not Applicable PATIENT PRESENTS WITH AN IMPLANTABLE OR ATTACHED LOGISTIC MANAGER: No RADIOLOGY DEPARTMENT: Ultrasound PERIPHERAL IV DATA: Not applicable SIGNED BY: Mikala Williamson RDMS March 18, 2024 2:10 PM documented in this encounterOur [facility] Of Mercy [facility]10-09-2024 History of Present illness Narrative* Will Brannon MD - 03/06/2024 5:06 PM EDT Noted. * Heather Ball RN - 03/06/2024 4:50 PM EDT Patient returns call and message reviewed. Patient reports that she isn't having any symptoms (chest pain or anxiety) since her appointment with Dr. Josue. She believes that the symptoms were related to the appointment and what she was seeing him for. Patient declines scheduling a follow-up with PCP at this time. Heather Ball RN * Juju Vu MA - 03/05/2024 9:30 AM EDT Message left for pt to call back. Juju Vu MA * Will Brannon MD - 03/04/2024 3:47 PM EDT I should see her for the chest pain symptoms. She needs to f/u with the counseling center for her anxiety. * Denae Monk MA - 03/04/2024 3:28 PM EDT Scan on 03/03/2024 11:45 PM by Provider, CAMDEN Navarro: Consultation - Emergency Medicine Do you need patient to follow up? Denae Monk MA documented in this encounterOur [facility]10-08-2024 Telephone encounter Note * Telephone Encounter - Naty Haddad LPN - 03/05/2024 9:28 AM EDT Called patient. No answer- left message to call clinic for message and MyChart message sent. Naty Haddad LPN [facility]10-08-2024 Miscellaneous Notes* Telephone Encounter - Naty Haddad LPN - 03/05/2024 9:28 AM EDT Called patient. No answer- left message to call clinic for message and MyChart message sent. Naty Haddad LPN * Telephone Encounter - Cory Box PA-C - 03/04/2024 6:02 PM EDT It appears to be skin contamination, I recommend new urine culture with urine collected fromSPT I placed new order for urine culture JENIFFER Gaona, CAMDEN CHESTER * Telephone Encounter - Naty Haddad LPN - 03/01/2024 1:22 PM EDT Received visit notes from [facility] from end of January with lab results. Scanned to Smart[employer] system via [employer]. Please review and advise. Naty Haddad LPN documented in this encounterOur Lady Of Mercy Hospital10-07-2024 Telephone encounter Note * Telephone Encounter - Cory Box PA-C - 03/04/2024 6:02 PM EDT It appears to be skin contamination, I recommend new urine culture with urine collected fromSPT I placed new order for urine culture JENIFFER Gaona, CAMDEN CHESTER [facility] History of Present illness Narrative* Xavier Josue MD - 03/04/2024 3:14 PM EDT HISTORY AND PHYSICAL Debby Bailon 1980 REFERRING PHYSICIAN: Will Brannon MD CHIEF COMPLAINT: Consult HPI: The patient is a 43 year old female referred for endoscopy. Debby notes no history of colon complaints. The patient notes the following upper complaints: Debby denies abdominal pain.. Debby notes heartburn. Debby notes dysphagia. Debby denies a history of ulcers/ peptic ulcer disease. Patient was recently in the emergency department. Workup was negative for cardiac. Debby has not undergone prior endoscopy. The patient is being seen by me today at the request of Dr. Will Brannon MD for my opinion andadvice regarding Oropharyngeal dysphagia (primary encounter diagnosis). PAST MEDICAL HISTORY Diagnosis Date Amputation of left great toe ([facility]) 06/25/2020 Arthritis started age 19 Bilateral leg edema 07/16/2018 Cervical radiculopathy 05/02/2013 Chronic pain 02/12/[address] ([facility]) 09/30/2021 Constipation due to outlet dysfunction 10/07/2021 Cyst of ovary 11/28/2011 Diabetes mellitus with peripheral vascular disease ([facility]) 03/29/2023 Diabetic eye exam ([facility]) 06/17/2016 Last done: 01/25/2017 Diabetic eye exam (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 Will monitor. Lipomeningocele, sacral level 09/12/2013 Lumbago 02/12/2015 Major depressive disorder, recurrent, mild (HCC) 03/29/2023 Medicare annual wellness visit, subsequent 02/28/2018 last done: 02/28/2018 Migraine without aura and without status migrainosus, not intractable 10/18/2016 Miscarriage Mixed hyperlipidemia 02/28/2018 Muscle weakness of left lower extremity 08/07/2013 Neck pain 05/02/2013 Neurogenic bladder 02/12/2015 Neurogenic bowel 01/06/2016 Neuropathy 02/12/2015 post back surgery with secondary infection. Seeing Dr. Gregg Non-compliance 09/02/2022 Even stated in endocrine note from 09/01/2022 Numbness and tingling of left arm and leg 08/07/2013 Obesity, Class II, BMI 35-39.9 02/12/2015 Panic attacks Paroxysmal SVT (supraventricular tachycardia) (HCC) 07/03/2017 Per 48 Hr event monitor 06/30/2017 Primary insomnia 02/17/2016 S/P hernia repair 12/11/2017 Spina bifida (HCC) 01/06/2016 Thyroid cyst 01/01/2018 Complex right sided cysts. US 12/2017, biopsy per Dr. Josue 01/23/2018 benign. Repeat US in a year. 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 nl AMPUTATION TOE,MT-P JT Left 02/11/2020 left big toe CATH, SUPRAPUBIC/CYSTOSCOPIC 11/07/2018 COLOSTOMY 10/01/2021 CYSTOSCOPY,REMV CALCULUS,COMPLIC 11/10/2020 DILATION & CURETTAGE DX&/THER NONOBSTETRIC Dilation & curettage HERNIA REPAIR W/MESH 2018 LEXISCAN STRESS TEST 07/20/2018 negative NUCLEAR STRESS LEXISCAN (CARD) 10/24/2018 negative PAST SURGICAL HISTORY OF 2010 cholecystectomy PAST SURGICAL HISTORY OF 09/2012 back surgery x2 PAST SURGICAL HISTORY OF Left & 02/2014 foot x2 PAST SURGICAL HISTORY OF 07/2015 ABD procedure; Bowles stoma PAST SURGICAL HISTORY OF 09/30/2021 Laparoscopic end colostomy PAST SURGICAL HISTORY OF Left 01/2021 bone removed left foot REPAIR UMBILICAL HERNIA 12/11/2017 STRESS ECHO 12/09/2019 Negative STRESS TEST 07/18/2017 normal STRESS TEST 03/15/2018 negative THYROID FINE NEEDLE ASPIRATION Right 04/13/2023 right mid thyroid Current Outpatient Medications Medication Sig ELIQUIS 5 mg tab(s) Take 1 tablet by mouth two times a day. pregabalin (LYRICA) 75 mg capsule Take 1 capsule by mouth two times a day for 180 days. Urinary Bag (URINARY LEG BAG) kit Use as directed with suprapublic catheter. Urinary Bag (UROSTOMY NIGHT BAG) misc Urinary Night Bag. Use as directed with suprapublic catheter. insulin aspart, niacinamide, (FIASP FLEXTOUCH U-100 INSULIN) 100 unit/mL (3 mL) pen Inject 20 unitswith meals (three times daily) PLUS SS#2 (2 units for every 50 over 150 PRE MEAL blood sugar) TDD~90 units daily insulin glargine (LANTUS SOLOSTAR U-100 INSULIN) 100 unit/mL (3 mL) Inject 40 units once daily Blood-Glucose Sensor (FREESTYLE ROSA 3 SENSOR) tara CHANGE SENSOR EVERY 14 DAYS, USE FOR CONTINUOUS GLUCOSE MONITORING. MULTIPLE INSULIN INJECTIONS. Blood-Glucose Meter,Continuous (FREESTYLE ROSA 3 READER) misc DISPENSE ONE READER KIT. USE FOR CONTINUOUS GLUCOSE MONITORING. MULTIPLE INSULIN INJECTIONS. E11.9 Drainage Bag misc 1 Each every 2 weeks. furosemide (LASIX) 20 mg tablet Take 1 tablet by mouth once daily. Take in evening loratadine (CLARITIN) 10 mg tablet Take 1 tablet by mouth once daily. traZODone (DESYREL) 100 mg tablet Take 1 tablet by mouth daily at bedtime. propranolol (INDERAL) 20 mg tablet Take 1 tablet by mouth two times a day. oxybutynin ER (DITROPAN XL) 15 mg 24 hr Extended Rel Tab Take 1 tablet by mouth once daily. furosemide (LASIX) 40 mg tablet Take 1 tablet by mouth once daily. Take in morning atorvastatin (LIPITOR) 80 mg tablet Take 1 tablet by mouth once daily. DULoxetine (CYMBALTA) 30 mg capsule Take 30 mg by mouth once daily. busPIRone (BUSPAR) 15 mg tablet Take 15 mg by mouth once daily. acetaminophen (TYLENOL) 500 mg tablet Take 650 mg by mouth every 6 hours as needed. lisinopril (ZESTRIL, PRINIVIL) 5 mg tablet Take 1 tablet by mouth once daily. Per Dr. Ermias Salomon sodium chloride irrig solution (NACL 0.9% IRRIGATION BOTTLE) To use for catheter irrigation daily or as needed. Insulin [place], Disposable, (COMFORT EZ PEN NEEDLES) 29 gauge x 1/2 One needle with each lantus shot once a day. Dx: E13.29 on insulin PSEUDOEPHEDRINE HCL ORAL Take 30 mg by mouth as needed. ondansetron orally disintegrating (ZOFRAN ODT) 8 mg disintegrating tablet Take 8 mg by mouth every 8 hours as needed for nausea/vomiting. fluticasone (FLONASE) 50 mcg/actuation nasal spray Use 2 Sprays in each nostril once daily. Rinse mouth after use. Insulin [place], Disposable, 32 gauge x 5/16 ndle Use once daily with Victoza COMPOUNDED PRESCRIPTION Stoma catheter tube. DX: Qo5.4 and K59.2 No current facility-administered medications for this visit. ALLERGIES: Ceftriaxone, Cephalosporins, Mushroom, Peanut, Peanuts, Latex, Gabapentin, and Mri Contrast [Gadolinium-Containing Contrast Media] PERSONAL HISTORY: Social History Tobacco Use Smoking status: Never Smokeless tobacco: Never Vaping Use Vaping status: Never Used Substance Use Topics Alcohol use: Not Currently Comment: social Drug use: Never FAMILY HISTORY: FAMILY HISTORY Problem Relation Age of Onset Arthritis Mother Diabetes Mother Heart Mother Hypertension Mother Lipids Mother Stroke Mother Thyroid Mother Thyroid Father Cancer Father Skin No Known Problems Brother Cancer Maternal Grandmother LIVER CANCER Cancer Maternal Uncle Great Uncle Cancer Maternal Uncle Great Uncle Anesthesia Problems No Family History REVIEW OF SYMPTOMS: The review of systems data was entered by the nurse and reviewed by me There are no exam notes on file for this visit. PHYSICAL EXAMINATION: General: The patient is 43 year old female, well nourished, well hydrated in no acute distress. Thepatient is oriented to time, place, and person. VITALS: Blood pressure 118/88, pulse (!) 127, temperature 36.2 C (97.1 F), temperature source Temporal, height 157.5 cm (5' 2.01), weight 98.4 kg (217 lb), last menstrual period 11/17/2023, SpO2 96%. Body mass index is 39.68 kg/m . HEENT: Normal cephalic, ataumatic, pupils are equally round, sclera are anicteric, mucous membranesare moist, oropharynx is clear. Neck has no masses, asymmetry or lymphadenopathy. Thyroid is unremarkable. Respiratory: Clear to auscultation and percussion. Normal respiratory excursion and pattern. Cardiac: Examination is regular rate and rhythm. Abdominal exam: Soft, nontender, with no palpable masses. No hepatosplenomegaly. No palpable hernias. Rectal exam: exam deferred Extremities: no clubbing, cyanosis or edema. No adenopathy. Other: LABORATORY VALUES: As Noted RADIOLOGIC STUDIES: As Noted Assessment IMPRESSION: Oropharyngeal dysphagia (primary encounter diagnosis) PLAN: I plan to perform upper endoscopy. We discussed the risks and benefits of the planned endoscopy. I have informed the patient that complications can occur including failure to complete the endoscopy and perforation. The patient had the opportunity to ask questions concerning the planned endoscopy. My staff has also explained the procedure to the patient in understandable terms and has given the patient printed material concerning the procedure. The patient freely consents to surgery. Diagnoses: (R13.12) Oropharyngeal dysphagia (primary encounter diagnosis) My findings have been communicated to Dr. Will Brannon MD via shared medical record. This notewill be forwarded to Dr. Will Brannon MD. Return to Clinic: The patient is instructed to follow-up with me 1 week post operatively. Xavier Josue III, MD * Keiry Grant RN - 03/04/2024 2:49 PM EDT REVIEW OF SYSTEMS: General: The patient notes fatigue, denies weight loss, denies weight gain, denies feeling hot, andnotes feelings of cold. Eyes: The patient denies glaucoma, denies eye injury/surgery, wears glasses or contacts. Ear/Nose/Throat: The patient notes allergies, denies hayfever, denies ear infections, and denies bloody noses. Cardiovascular: The patient notes chest pain, denies heart disease, notes high blood pressure,denies cardiac stent, denies prior heart attack, notes irregular heart beat, denies high cholesterol, notes poor circulation, denies heart failure, other cardiac issues, denies claudication, notes cold feet, denies peripheral arterial stent. Respiratory: The patient denies tuberculosis, denies pneumonia, denies frequent cough, denies pulmonary embolism, denies shortness of breath, and denies coughing up blood. Gastrointestinal: The patient notes difficulty swallowing, denies acid reflux, denies ulcers, denies vomiting, denies jaundice/hepatitis, denies gallbladder problems, denies black or tarry stools, denies hemorrhoids, denies bleeding from rectum, denies diverticulitis, notes constipation, notes diarrhea, denies loss of stool control, and denies hernias. Kidney/Bladder: The patient notes kidney stones, notes urine infections, and notes bloody urine. Skin: The patient denies a history of skin cancer, denies bleeding/changing moles, and notes a history of skin rash. Neurologic: The patient denies a history of epilepsy/convulsions, notes headaches, denies head/spinal injuries, and denies stroke/TIA. Psychiatric: The patient denies psychiatric medications, notes depression, and denies voices, denies substance abuse. Endocrine: The patient denies thyroid disorders, notes diabetes, and denies hormonal problems. Hematologic: The patient denies a history of bruising, notes bleeding, and denies anemia, denies blood clots. Infections: The patient denies a history of measles and mumps, denies rheumatic fever, and denies sexually transmitted diseases. Musculoskeletal: The patient notes back pain/injury, notes back problems, denies sciatica, notes knee/foot trouble, notes arthritis, or denies gout. When was patient's last Mammogram screening? 06/14/2023 Last Colonoscopy: Negative Keiry Grant, RN [facility] encounter Note * Telephone Encounter - Naty Haddad LPN - 03/01/2024 1:22 PM EDT Received visit notes from [facility] from end of January with lab results. Scanned to Smart[employer] system via [employer]. Please review and advise. Naty Haddad LPN [facility]10-04-[facility]24 Telephone encounter Note* Telephone Encounter - Josesito Verdin LPN - 03/01/2024 12:18 PM EDT Results and message faxed to Urology at [place] location [phone]. Josesito Verdin LPN [facility]10-04-2024 Miscellaneous Notes* Telephone Encounter - Josesito Verdin LPN - 03/01/2024 12:18 PM EDT Results and message faxed to Urology at [place] location [phone]. Josesito Verdin LPN * Telephone Encounter - Netta Higgins PA-C - 03/01/2024 11:55 AM EDT Needs to be forwarded to patient's urologist. Thanks. Netta Higgins PA-C * Telephone Encounter - Josesito Verdin LPN - 03/01/2024 11:10 AM EDT Received fax from [facility] with pt's urine culture results. They advise that pt was not treated with antibiotic d/t pt's complicated UTI's. They are deferring treatment to pcp. Susceptibility results have been included. Results on pcp's desk for review. Josesito Verdin LPN [facility] Telephone encounter Note * Telephone Encounter - Netta Higgins PA-C - 03/01/2024 11:55 AM EDT Needs to be forwarded to patient's urologist. Thanks. Netta Higgins PA-C [facility] Telephone encounter Note* Telephone Encounter - Josesito Verdin LPN - 03/01/2024 11:10 AM EDT Received fax from [facility] with pt's urine culture results. They advise that pt was not treated with antibiotic d/t pt's complicated UTI's. They are deferring treatment to pcp. Susceptibility results have been included. Results on pcp's desk for review. Josesito Verdin LPN [facility] Note. MICRO - Microbiology PROCEDURE: Urine Culture [O1 *1] SOURCE: Urine, Cook Catheter BODY SITE: COLLECTED DATE/TIME: 02/25/2024 23:42 EDT RECEIVED DATE/TIME: 02/26/2024 14:28 EDT START DATE/TIME: 02/26/2024 14:28 EDT FREE TEXT SOURCE: FINAL REPORTS Final Report [] Verified Date/Time/Personnel: 02/29/2024 07:43 EDT >100,000 cfu/ml Providencia rettgeri >100,000 cfu/ml Staphylococcus epidermidis PRELIMINARY REPORTS Preliminary Report [] Verified Date/Time/Personnel: 02/28/2024 12:01 EDT >100,000 cfu/ml Providencia rettgeri KURT to follow >100,000 cfu/ml Staphylococcus epidermidis KURT to follow Preliminary Report [] Verified Date/Time/Personnel: 02/27/2024 11:04 EDT Culture results pending. SUSCEPTIBILITY RESULTS Providencia rettgeri Antibiotic KURT Dilut KURT Inter Ampicillin 16 Resistant Ampicillin/ 16/8 Intermediate Sulbactam Aztreonam <=4 Susceptible Cefazolin >16 Resistant Ceftazidime/ <=4 Susceptible Avibactam Ceftolozane/ <=2 Susceptible Tazobactam Ceftriaxone <=1 Susceptible Cefuroxime <=4 Susceptible Ciprofloxacin >2 Resistant Ertapenem <=0.5 Susceptible Gentamicin <=2 Susceptible ID Panel Not Not Applicable Applicable Imipenem 2 Intermediate Levofloxacin >4 Resistant Meropenem <=1 Susceptible Minocycline 8 Intermediate Nitrofurantoin >64 Resistant Piperacillin/ <=8 Susceptible Tazobactam Trimethoprim/ <=0.5/9.5 Susceptible Sulfa Staphylococcus epidermidis Antibiotic KURT Dilut KURT Inter Ampicillin/ <=8/4 Resistant Sulbactam Azithromycin >4 Resistant Cefepime 8 Resistant Ceftriaxone 8 Resistant Ciprofloxacin >2 Resistant ID Panel Not Not Applicable Applicable MICRO - Microbiology SUSCEPTIBILITY RESULTS Staphylococcus epidermidis Antibiotic KURT Dilut KURT Inter Imipenem <=4 Resistant Levofloxacin >4 Resistant Nitrofurantoin <=32 Susceptible Oxacillin >2 Resistant Penicillin >2 Resistant Trimethoprim/ >2/38 Resistant Sulfa Vancomycin 1 Susceptible Order Comments O1: Urine Culture Added by Discern Performing Locations *1: This test was performed at: [facility], [address] [place] [address], [facility] , [facility]10-01-2024 History of Present illness Narrative* Naty Haddad LPN - 02/27/2024 3:44 PM EDT CC Supra pubic catheter in Place HPI: Debby Bailon is a 43 year old female. The patient is here now for a supra pubic catheter change with diagnosis neurogenic bladder. Procedure: Performed a catheter change. The indwelling supra pubic cook size 18 Fr was removed with catheter tip intact without difficulties. Inserted 18 Fr catheter using aseptic technique. Irrigated with 60 mL0.9% sodium chloride. Approximately 60 mLs pink return noted throughout. Bulb inflated with 30 mLsprefilled syringes- sterile water. T-Sponge applied to SPT base per patient preference attached to drainage bag. The patient tolerated the procedure well. Patient does not like tubing secured. Assessment/Plan: Successful catheter change. Return for catheter changes as planned. Naty Haddad LPN [facility] Hospital Discharge instructions Patient Education 02/26/2024 00:09:46 Abdominal Pain Abdominal Pain Abdominal pain is pain in the stomach or belly area. Everyone has this pain from time to time. In many cases it goes away on its own. But abdominal pain can sometimes be due to a serious problem, such as appendicitis. So it s important to know when to get help. Causes of abdominal pain There are many possible causes of abdominal pain. Common causes in adults include: Constipation, diarrhea, or gas Stomach acid flowing back up into the esophagus (acid reflux or heartburn) Severe acid reflux, called GERD (gastroesophageal reflux disease) A sore in the lining of the stomach or small intestine (peptic ulcer) Inflammation of the gallbladder, liver, or pancreas Gallstones or kidney stones Appendicitis Intestinal blockage An internal organ pushing through a muscle or other tissue (hernia) Urinary tract infections In women, menstrual cramps, fibroids, ovarian cysts, pelvic inflammatory disease, or endometriosis Inflammation or infection of the intestines, including Crohn's disease and ulcerative colitis Irritable bowel syndrome Diagnosing the cause of abdominal pain Your healthcare provider will give you a physical exam help find the cause of your pain. If needed,you will have tests. Belly pain has many possible causes. So it can be hard to find the reason for your pain. Giving details about your pain can help. Tell your provider where and when you feel the pain, and what makes it better or worse. Also let your provider know if you have other symptoms such as: Fever Tiredness Upset stomach (nausea) Vomiting Changes in bathroom habits Blood in the stool or black, tarry stool Weight loss that you can't explain (involuntary weight loss?) Also report any family history of stomach or intestinal problems, or cancers. Tell your provider about all your alcohol use and drug use. Tell your provider about all medicines you use, including herbs, vitamins, and supplements. Treating abdominal pain Some causes of pain need emergency medical treatment right away. These include appendicitis or a bowel blockage. Other problems can be treated with rest, fluids, or medicines. Your healthcare provider can give you specific instructions for treatment or self-care based on what is causing your pain. If you have vomiting or diarrhea, sip water or other clear fluids. When you are ready to eat solid foods again, start with small amounts of kwgo-wu-uktvng, low- fat foods. These include apple sauce, toast, or crackers. When to get medical care Call 911 or go to the hospital right away if you: Can t pass stool and are vomiting Are vomiting blood or have bloody diarrhea or black, tarry diarrhea Have chest, neck, or shoulder pain Feel like you might pass out Have pain in your shoulder blades with nausea Have sudden, severe belly pain Have new, severe pain unlike any you have felt before Have a belly that is rigid, hard, and hurts to touch Call your healthcare provider if you have: Pain for more than 5 days Bloating for more than 2 days Diarrhea for more than 5 days A fever of 100.4 F (38 C) or higher, or as directed by your healthcare provider Pain that gets worse Weight loss for no reason Continued lack of appetite Blood in your stool How to prevent abdominal pain Here are some tips to help prevent abdominal pain: Eat smaller amounts of food at each meal. Don't eat greasy, fried, or other high-fat foods. Don't eat foods that give you gas. Exercise regularly. Drink plenty of fluids. To help prevent GERD symptoms: Quit smoking. Reduce alcohol and foods that increase stomach acid. Don't use aspirin or mief-lbk-fqvtubl pain and fever medicines, if possible. This includes nonsteroidal anti-inflammatory drugs (NSAIDs). Lose excess weight. Finish eating at least 2 hours before you go to bed or lie down. Raise the head of your bed. [id number] [employer]. [address] [place] [address], [place] [address]. All rights reserved. This information is not intended as a substitute for professional medical care. Always follow yourcity hospitalcare professional's instructions. Follow Up Care 02/25/2024 23:18:48 With:your urologist Address: When:2-4 days [facility] 09-30-2024 Note Discharge Instructions Thank you for allowing [facility] to assist you with your healthcare needs. The following is importantdischarge information regarding your hospital visit. Diagnosis from Today's Visit Abdominal pain What to Do Next Instructions from Your Care Team No qualifying data available. Post Acute Orders No qualifying data available. You Need to Schedule the Following Appointments Follow Up with your urologist When:Within 2-4 days Allergies Mushrooms(Severe) Throat swelling Peanuts(Severe) Throat swelling Rocephin(Severe) Hives cephalosporins(Severe) Anaphylaxis, Hives gabapentin (Moderate) psychotic breakdown Latex (Mild) Hives contrast media (gadolinium-based) penicillin Unknown vancomycin Medications Please ask your primary doctor or pharmacist before taking any other medication not listed, including over the counter drugs, herbal medications, vitamins and or supplements as they may interact withyour home medications. What How Much When Why Instructions Last Dose New acetaminophen-oxyCODONE (Percocet 5 mg-325 mg oral tablet) 1 tab(s) by mouth Every 6 hours as needed for for pain Abdominal pain Duration: 3 Days Printed Prescription Unchanged apixaban (Eliquis 5 mg oral tablet) 1 tab(s) by mouth Two (2) times a day Unchanged atorvastatin (atorvastatin 80 mg oral tablet) 1 tab(s) by mouth Every day Unchanged DME (DME MISCellaneous) See instructions Sterile water, 40 syringes, 40 needles, alchohol swabs. Unchanged DULoxetine (Cymbalta 30 mg oral delayed release capsule) 1 cap by mouth Once a day Unchanged furosemide (Lasix 20 mg oral tablet) 2 tab(s) by mouth Once a day (in the morning) Unchanged furosemide (Lasix 20 mg oral tablet) 1 tab(s) by mouth Once a day (in the evening) Unchanged insulin aspart (Novolog) (Fiasp FlexTouch 100 units/ mL injectable solution) See instructions Sliding scale TIDAC Unchanged insulin glargine (Lantus 100 units/ mL10 ml vial solution) 33 unit(s) Subcutaneous Daily at bedtime Unchanged lisinopril (lisinopril 2.5 mg oral tablet) 1 tab(s) by mouth Once a day Unchanged oxybutynin (oxybutynin 15 mg/ 24 hr oral tablet, extended release) 1 tab(s) by mouth Once a day (in the evening) Unchanged pregabalin (pregabalin 75 mg oral capsule) 1 cap by mouth Two (2) times a day Unchanged propranolol (propranolol 20 mg oral tablet) 0.5 tab(s) by mouth Two (2) times a day Unchanged traZODone (traZODone 100 mg oral tablet) 1 tab(s) by mouth Daily at bedtime Please take this list to your next doctor s visit. Bring all medications you take, including over the counter medications, herbals and other supplements with you to your doctor s visit. Patients and families are reminded to discard old lists and to update any records with all medication providers or retail pharmacies. Education Materials Abdominal Pain Abdominal pain is pain in the stomach or belly area. Everyone has this pain from time to time. In many cases it goes away on its own. But abdominal pain can sometimes be due to a serious problem, such as appendicitis. So it s important to know when to get help. Causes of abdominal pain There are many possible causes of abdominal pain. Common causes in adults include: Constipation, diarrhea, or gas Stomach acid flowing back up into the esophagus (acid reflux or heartburn) Severe acid reflux, called GERD (gastroesophageal reflux disease) A sore in the lining of the stomach or small intestine (peptic ulcer) Inflammation of the gallbladder, liver, or pancreas Gallstones or kidney stones Appendicitis Intestinal blockage An internal organ pushing through a muscle or other tissue (hernia) Urinary tract infections In women, menstrual cramps, fibroids, ovarian cysts, pelvic inflammatory disease, or endometriosis Inflammation or infection of the intestines, including Crohn's disease and ulcerative colitis Irritable bowel syndrome Diagnosing the cause of abdominal pain Your healthcare provider will give you a physical exam help find the cause of your pain. If needed,you will have tests. Belly pain has many possible causes. So it can be hard to find the reason for your pain. Giving details about your pain can help. Tell your provider where and when you feel the pain, and what makes it better or worse. Also let your provider know if you have other symptoms such as: Fever Tiredness Upset stomach (nausea) Vomiting Changes in bathroom habits Blood in the stool or black, tarry stool Weight loss that you can't explain (involuntary weight loss?) Also report any family history of stomach or intestinal problems, or cancers. Tell your provider about all your alcohol use and drug use. Tell your provider about all medicines you use, including herbs, vitamins, and supplements. Treating abdominal pain Some causes of pain need emergency medical treatment right away. These include appendicitis or a bowel blockage. Other problems can be treated with rest, fluids, or medicines. Your healthcare provider can give you specific instructions for treatment or self-care based on what is causing your pain. If you have vomiting or diarrhea, sip water or other clear fluids. When you are ready to eat solid foods again, start with small amounts of zrwp-ao-ldsfxu, low- fat foods. These include apple sauce, toast, or crackers. When to get medical care Call 911 or go to the hospital right away if you: Can t pass stool and are vomiting Are vomiting blood or have bloody diarrhea or black, tarry diarrhea Have chest, neck, or shoulder pain Feel like you might pass out Have pain in your shoulder blades with nausea Have sudden, severe belly pain Have new, severe pain unlike any you have felt before Have a belly that is rigid, hard, and hurts to touch Call your healthcare provider if you have: Pain for more than 5 days Bloating for more than 2 days Diarrhea for more than 5 days A fever of 100.4 F (38 C) or higher, or as directed by your healthcare provider Pain that gets worse Weight loss for no reason Continued lack of appetite Blood in your stool How to prevent abdominal pain Here are some tips to help prevent abdominal pain: Eat smaller amounts of food at each meal. Don't eat greasy, fried, or other high-fat foods. Don't eat foods that give you gas. Exercise regularly. Drink plenty of fluids. To help prevent GERD symptoms: Quit smoking. Reduce alcohol and foods that increase stomach acid. Don't use aspirin or rlqn-sxg-nzvqumn pain and fever medicines, if possible. This includes nonsteroidal anti-inflammatory drugs (NSAIDs). Lose excess weight. Finish eating at least 2 hours before you go to bed or lie down. Raise the head of your bed. [id number] [employer]. [address] [place] [address], [place] [address]. All rights reserved. This information is not intended as a substitute for professional medical care. Always follow yourhealthcare professional's instructions. Additional Information VACCINATE! IT SAVES LIVES! Members of the community who have not yet received the COVID-19 vaccine and would like to receive it can visit one of [facility] vaccine clinics. There are many vaccine clinic locations within the [facility]. For locations and available times, please visit [email or web address] It is important to note that some COVID mobile vaccine clinics are held outdoors and may be canceled in rainy or stormy conditions. To learn more about pediatric vaccinations (ages 5-11), we invite you to visit the [facility] webpage. [email or web address] learn more about the COVID-19 vaccine, we invite you to visit the CDC website for a list of frequently asked questions. https://www.cdc.gov/coronavirus/2019-ncov/vaccines/faq.html [email or web address] Patient Portal Access Instructions: Stay connected with your healthcare team and access your personal medical information anytime with the [email or web address] Patient Portal. If you would like a full copy of your medical records please contact the [facility] Medical Records Department Monday through Monday between 8a.m. and 4:30p.m. Please follow the directions below to access the portal: 1.Access the email account you provided upon registration to the hospital.2.Look for an invitation email from [facility].3.Open the email and access the invitation link: Accept Invitation to [email or web address].Fill in the required hartley to create your account. Sign into www.[employer] with your username and password that you created in the above steps to stay up to date. You can then view a summary of results, a summary of your visits, and the ability to download your summaries to your computer or send the information securely to a physician. Remember that your healthcare information is confidential, so carefully consider who you will allow to register on the [email or web address] Patient Portal for access to your information. You can also access the [email or web address] Patient Portal on the [employer]. Simply click on Health Records under HealthData and then click on the [employer] logo. HOW TO SAFELY DISPOSE OF PRESCRIPTION MEDICATIONS Please use one of the following methods to safely dispose of your unused medications. 1.Use a drug disposal kit: the drug disposal pouch allows you to safely discard your old and unuseddrugs. Ask your nurse to give you one when you are discharged.2.Visit a local take-back location: Many local pharmacies and police departments have programs that collect old and unwanted prescriptiondrugs. Call your local pharmacy or go to http://[employer]/5O8Mf5e to find one close to you.3.Make use of household items: Use cat litter or old coffee grounds to dispose medications if other options arenot available. Mix your drugs with these household products, seal them in an airtight container andthrow it into the garbage. Call [facility]: [phone] to be sure your drugs can be disposed of in this way. Some medicines may require a different approach.4.Never flush your medications down the toilet. IF YOU HAVE BEEN PRESCRIBED AN OPIOIDS FOR PAIN If you have been prescribed an opioid (such as hydrocodone, oxycodone or morphine), it is critical to understand the possible side effects and risks of opioid pain medications. Even when taken as directed, opioids can have several side effects including: Tolerance, meaning you might need to take more of a medication for the same pain relief. Nausea, vomiting and/or constipation. Sleepiness, dizziness, dry mouth, confusion, depression or itching. Physical dependence, meaning you have withdrawal symptoms when a medication is stopped ? this can develop within a few days. KNOW YOUR RESPONSIBILITIES It is important to know exactly how much and how often to take the opioid pain medications you are prescribed. Never take opioids in higher amounts or more often than prescribed. Do not combine opioids with alcohol or other drugs that cause drowsiness, such as benzodiazepines, also known as benzos,including diazepam and alprazolam, muscle relaxants or sleep aids. Never sell or share prescriptionopioids. This is illegal. Store opioids in a secure place and out of reach of others (including children, family, friends and visitors). The last page(s) of this document has been signed and retained as a CHART COPY Signatures Patient Education Materials Abdominal Pain Medication Leaflets My discharge plan and instructions have been reviewed and explained to me and I,DEBBY BAILONd my current condition and have read and understand these discharge instructions. I have received a written copy of the plan/instructions. If I have questions, I am aware that I should contact my doctor. 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09-29-2024 Evaluation + Plan note Diagnostic Tests Pending * Urine Culture 02/25/[address] [facility] 09-09-2024 Note. MICRO - Microbiology PROCEDURE: Urine Culture [O1 *1] SOURCE: Urine BODY SITE: COLLECTED DATE/TIME: 02/02/2024 23:58 EDT RECEIVED DATE/TIME: 02/03/2024 16:30 EDT START DATE/TIME: 02/03/2024 16:30 EDT FREE TEXT SOURCE: FINAL REPORTS Final Report [] Verified Date/Time/Personnel: 02/05/2024 07:41 EDT >100,000 cfu/ml Multiple bacterial morphotypes present. Probable Contamination. Suggest recollection if clinically indicated. PRELIMINARY REPORTS Preliminary Report [] Verified Date/Time/Personnel: 02/04/2024 09:22 EDT Culture results pending. Order Comments O1: Urine Culture Added by Discern Performing Locations *1: This test was performed at: [facility], [address] [place] [address], [id number] , [facility]09-07-2024 Hospital Discharge instructions Patient Education 02/03/2024 01:14:23 Urinary Tract Infections in Women Urinary Tract Infections in Women Urinary tract infections (UTIs) are most often caused by bacteria. These bacteria enter the urinarytract. The bacteria may come from outside the body. Or they may travel from the skin outside the rectum or vagina into the urethra. Female anatomy makes it easy for bacteria from the bowel to enter awoman s urinary tract, which is the most common source of UTI. This means women develop UTIs more often than men. Pain in or around the urinary tract is a common UTI symptom. But the only way to knowfor sure if you have a UTI for the healthcare provider to test your urine. The two tests that may be done are the urinalysis and urine culture. Types of UTIs Cystitis. A bladder infection (cystitis) is the most common UTI in women. You may have urgent or frequent urination. You may also have pain, burning when you urinate, and bloody urine. Urethritis. This is an inflamed urethra, which is the tube that carries urine from the bladder to outside the body. You may have lower stomach or back pain. You may also have urgent or frequent urination. Pyelonephritis. This is a kidney infection. If not treated, it can be serious and damage your kidneys. In severe cases, you may need to stay in the hospital. You may have a fever and lower back pain. Medicines to treat a UTI Most UTIs are treated with antibiotics. These kill the bacteria. The length of time you need to take them depends on the type of infection. It may be as short as 3 days. If you have repeated UTIs, you may need a low-dose antibiotic for several months. Take antibiotics exactly as directed. Don t stop taking them until all of the medicine is gone. If you stop taking the antibiotic too soon, the infection may not go away. You may also develop a resistance to the antibiotic. This can make it much harder to treat. Lifestyle changes to treat and prevent UTIs The lifestyle changes below will help get rid of your UTI. They may also help prevent future UTIs. Drink plenty of fluids. This includes water, juice, or other caffeine-free drinks. Fluids help flush bacteria out of your body. Empty your bladder. Always empty your bladder when you feel the urge to urinate. And always urinatebefore going to sleep. Urine that stays in your bladder can lead to infection. Try to urinate before and after sex as well. Practice good personal hygiene. Wipe yourself from front to back after using the toilet. This helpskeep bacteria from getting into the urethra. Use condoms during sex. These help prevent UTIs caused by sexually transmitted bacteria. Also don'tuse spermicides during sex. These can increase the risk for UTIs. Choose other forms of control instead. For women who tend to get UTIs after sex, a low-dose of a preventive antibiotic may be used. Be sure to discuss this option with your healthcare provider. Follow up with your healthcare provider as directed. He or she may test to make sure the infection has cleared. If needed, more treatment may be started. [id number] [employer]. [address] [place] [address], [place] [address]. All rights reserved. This information is not intended as a substitute for professional medical care. Always follow yourhealthcare professional's instructions. Follow Up Care 02/02/2024 23:35:02 With:WILL BRANNON MD Address: [address] [place] [address]- When:2-[address] [facility] 09-07-2024 Note Discharge Instructions Thank you for allowing [facility] to assist you with your healthcare needs. The following is importantdischarge information regarding your hospital visit. Diagnosis from Today's Visit Abdominal pain What to Do Next Instructions from Your Care Team No qualifying data available. Post Acute Orders No qualifying data available. You Need to Schedule the Following Appointments Follow Up with WILL BRANNON MD When:Within 2-4 days Where:[facility] [place] [address]- Allergies Mushrooms(Severe) Throat swelling Peanuts(Severe) Throat swelling Rocephin(Severe) Hives cephalosporins(Severe) Anaphylaxis, Hives gabapentin (Moderate) psychotic breakdown Latex (Mild) Hives contrast media (gadolinium-based) penicillin Unknown vancomycin Medications Please ask your primary doctor or pharmacist before taking any other medication not listed, including over the counter drugs, herbal medications, vitamins and or supplements as they may interact withyour home medications. What How Much When Why Instructions Last Dose New acetaminophen-hydrocodone ([place] 325- 5 mg oral tablet) 1 tab(s) by mouth Every 6 hours as needed for as needed for pain Abdominal pain Duration: 3 Days Printed Prescription New ciprofloxacin (Cipro 500 mg oral tablet) 1 tab(s) by mouth Every 12 hours Duration: 10 Days Printed Prescription New ondansetron (ondansetron 4 mg oral tablet, disintegrating) 1 tab(s) by mouth Every 6 hours Duration: 4 Days Printed Prescription Unchanged apixaban (Eliquis 5 mg oral tablet) 1 tab(s) by mouth Two (2) times a day Unchanged atorvastatin (atorvastatin 80 mg oral tablet) 1 tab(s) by mouth Every day Unchanged DME (DME MISCellaneous) See instructions Sterile water, 40 syringes, 40 needles, alchohol swabs. Unchanged DULoxetine (Cymbalta 30 mg oral delayed release capsule) 1 cap by mouth Once a day Unchanged furosemide (Lasix 20 mg oral tablet) 2 tab(s) by mouth Once a day (in the morning) Unchanged furosemide (Lasix 20 mg oral tablet) 1 tab(s) by mouth Once a day (in the evening) Unchanged insulin aspart (Novolog) (Fiasp FlexTouch 100 units/ mL injectable solution) See instructions Sliding scale TIDAC Unchanged insulin glargine (Lantus 100 units/ mL10 ml vial solution) 33 unit(s) Subcutaneous Daily at bedtime Unchanged lisinopril (lisinopril 2.5 mg oral tablet) 1 tab(s) by mouth Once a day Unchanged oxybutynin (oxybutynin 15 mg/ 24 hr oral tablet, extended release) 1 tab(s) by mouth Once a day (in the evening) Unchanged pregabalin (pregabalin 75 mg oral capsule) 1 cap by mouth Two (2) times a day Unchanged propranolol (propranolol 20 mg oral tablet) 0.5 tab(s) by mouth Two (2) times a day Unchanged traZODone (traZODone 100 mg oral tablet) 1 tab(s) by mouth Daily at bedtime Please take this list to your next doctor s visit. Bring all medications you take, including over the counter medications, herbals and other supplements with you to your doctor s visit. Patients and families are reminded to discard old lists and to update any records with all medication providers or retail pharmacies. Education Materials Urinary Tract Infections in Women Urinary tract infections (UTIs) are most often caused by bacteria. These bacteria enter the urinarytract. The bacteria may come from outside the body. Or they may travel from the skin outside the rectum or vagina into the urethra. Female anatomy makes it easy for bacteria from the bowel to enter awoman s urinary tract, which is the most common source of UTI. This means women develop UTIs more often than men. Pain in or around the urinary tract is a common UTI symptom. But the only way to knowfor sure if you have a UTI for the healthcare provider to test your urine. The two tests that may be done are the urinalysis and urine culture. Types of UTIs Cystitis. A bladder infection (cystitis) is the most common UTI in women. You may have urgent or frequent urination. You may also have pain, burning when you urinate, and bloody urine. Urethritis. This is an inflamed urethra, which is the tube that carries urine from the bladder to outside the body. You may have lower stomach or back pain. You may also have urgent or frequent urination. Pyelonephritis. This is a kidney infection. If not treated, it can be serious and damage your kidneys. In severe cases, you may need to stay in the hospital. You may have a fever and lower back pain. Medicines to treat a UTI Most UTIs are treated with antibiotics. These kill the bacteria. The length of time you need to take them depends on the type of infection. It may be as short as 3 days. If you have repeated UTIs, you may need a low-dose antibiotic for several months. Take antibiotics exactly as directed. Don t stop taking them until all of the medicine is gone. If you stop taking the antibiotic too soon, the infection may not go away. You may also develop a resistance to the antibiotic. This can make it much harder to treat. Lifestyle changes to treat and prevent UTIs The lifestyle changes below will help get rid of your UTI. They may also help prevent future UTIs. Drink plenty of fluids. This includes water, juice, or other caffeine-free drinks. Fluids help flush bacteria out of your body. Empty your bladder. Always empty your bladder when you feel the urge to urinate. And always urinatebefore going to sleep. Urine that stays in your bladder can lead to infection. Try to urinate before and after sex as well. Practice good personal hygiene. Wipe yourself from front to back after using the toilet. This helpskeep bacteria from getting into the urethra. Use condoms during sex. These help prevent UTIs caused by sexually transmitted bacteria. Also don'tuse spermicides during sex. These can increase the risk for UTIs. Choose other forms of control instead. For women who tend to get UTIs after sex, a low-dose of a preventive antibiotic may be used. Be sure to discuss this option with your healthcare provider. Follow up with your healthcare provider as directed. He or she may test to make sure the infection has cleared. If needed, more treatment may be started. [phone] [employer]. [address] [place] [address]. All rights reserved. This information is not intended as a substitute for professional medical care. Always follow yourhealthcare professional's instructions. Additional Information VACCINATE! IT SAVES LIVES! Members of the community who have not yet received the COVID-19 vaccine and would like to receive it can visit one of [facility] vaccine clinics. There are many vaccine clinic locations within the [facility]. For locations and available times, please visit www.[email or web address].[place].gov/. It is important to note that some COVID mobile vaccine clinics are held outdoors and may be canceled in rainy or stormy conditions. To learn more about pediatric vaccinations (ages 5-11), we invite you to visit the [facility] webpage. [email or web address] learn more about the COVID-19 vaccine, we invite you to visit the CDC website for a list of frequently asked questions. https://www.cdc.gov/coronavirus/2019-ncov/vaccines/faq.html [facility] Access Instructions: Stay connected with your healthcare team and access your personal medical information anytime with the [facility] Patient [facility]. If you would like a full copy of your medical records please contact the [facility] Medical Records Department Monday through Monday between 8a.m. and 4:30p.m. Please follow the directions below to access the portal: 1.Access the email account you provided upon registration to the [facility].2.Look for an invitation email from [facility].3.Open the email and access the invitation link: Accept Invitation to [employer]4.Fill in the required hartley to create your account. Sign into www.[employer] with your username and password that you created in the above steps to stay up to date. You can then view a summary of results, a summary of your visits, and the ability to download your summaries to your computer or send the information securely to a physician. Remember that your healthcare information is confidential, so carefully consider who you will allow to register on the [employer] Patient Portal for access to your information. You can also access the [employer] Patient Portal on the [employer]. Simply click on Health Records under [employer] and then click on the [employer] logo. HOW TO SAFELY DISPOSE OF PRESCRIPTION MEDICATIONS Please use one of the following methods to safely dispose of your unused medications. 1.Use a drug disposal kit: the drug disposal pouch allows you to safely discard your old and unuseddrugs. Ask your nurse to give you one when you are discharged.2.Visit a local take-back location: Many local pharmacies and police departments have programs that collect old and unwanted prescriptiondrugs. Call your local pharmacy or go to http://[employer]/3N3Kn3i to find one close to you.3.Make use of household items: Use cat litter or old coffee grounds to dispose medications if other options arenot available. Mix your drugs with these household products, seal them in an airtight container andthrow it into the garbage. Call [facility]: [phone] to be sure your drugs can be disposed of in this way. Some medicines may require a different approach.4.Never flush your medications down the toilet. IF YOU HAVE BEEN PRESCRIBED AN OPIOIDS FOR PAIN If you have been prescribed an opioid (such as hydrocodone, oxycodone or morphine), it is critical to understand the possible side effects and risks of opioid pain medications. Even when taken as directed, opioids can have several side effects including: Tolerance, meaning you might need to take more of a medication for the same pain relief. Nausea, vomiting and/or constipation. Sleepiness, dizziness, dry mouth, confusion, depression or itching. Physical dependence, meaning you have withdrawal symptoms when a medication is stopped ? this can develop within a few days. KNOW YOUR RESPONSIBILITIES It is important to know exactly how much and how often to take the opioid pain medications you are prescribed. Never take opioids in higher amounts or more often than prescribed. Do not combine opioids with alcohol or other drugs that cause drowsiness, such as benzodiazepines, also known as benzos,including diazepam and alprazolam, muscle relaxants or sleep aids. Never sell or share prescriptionopioids. This is illegal. Store opioids in a secure place and out of reach of others (including children, family, friends and visitors). The last page(s) of this document has been signed and retained as a CHART COPY Signatures Patient Education Materials Urinary Tract Infections in Women Medication Leaflets My discharge plan and instructions have been reviewed and explained to me and I,DEBBY BAILON my current condition and have read and understand these discharge instructions. I have received a written copy of the plan/instructions. If I have questions, I am aware that I should contact my doctor. 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09-07-2024 Note ORIGINAL EXAMINATION: CT OF THE ABDOMEN AND PELVIS WITH CONTRAST 02/03/2024 12:47 am TECHNIQUE: CT of the abdomen and pelvis was performed with the administration of intravenous contrast. Multiplanar reformatted images are provided for review. Automated exposure control, iterative reconstruction, and/or weight based adjustment of the mA/kV was utilized to reduce the radiation dose to as low as reasonably achievable. COMPARISON: CT abdomen pelvis November 17, 2023 HISTORY: ORDERING SYSTEM PROVIDED HISTORY: Reason for Exam: lower abdominal pain, hx of kidney infections abdominal pain FINDINGS: Lower Chest: No focal consolidation. 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 Right renal scarring. Small right renal cyst which does not require interval follow-up. Nonobstructing 0 4 cm nephrolithiasis in the right inferior pole. No hydronephrosis or hydroureter. Asymmetric mild enhancement to the right ureter and renal pelvis and calices. 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 Small to moderate fat containing umbilical hernia containing the appendix, the tip of which is very superficial and appears to be only covered by a thin layer of skin. Pete pouch. Pelvis: Supraumbilical catheter. Small amount air within the urinary bladder. Circumferential bladder wall thickening. Chronic solid lobular structure in the left adnexa; correlate with nonemergent outpatient pelvic ultrasound. Peritoneum/Retroperitoneum: Nonaneurysmal abdominal aorta. No enlarged lymph nodes. Bones/Soft Tissues: Postsurgical changes of the lumbar spine. IMPRESSION: Circumferential bladder wall thickening, nonspecific although could reflect cystitis. Asymmetric mild right upper urinary tract wall enhancement, nonspecific although could reflect ascending urinary tract infection. Correlate with urinalysis. Additional findings as above. Interpreted by: Stephan Marshall Preliminary Report By: Stephan Marshall Electronically signed By Stephan Marshall Dictated Date: 02/03/2024 12:49:48 AM Prelim Date: 02/03/2024 1:00:11 AM Sign Date: 02/03/2024 1:00:11 AM Ordering Provider: LUDWIG [facility]09-06-2024 Evaluation + Plan note Diagnostic Tests Pending * Urine Culture 02/02/[address] [facility] 09-04-2024 Telephone encounter Note* Telephone Encounter - Chanda Ray RN - 01/31/2024 5:29 PM EDT The patient has been identified by name and date of : Yes Caregiver verified no other encounters exist for this prescription request: Yes Caregiver confirmed with patient/requestor that no other refills are due, in the near future, with this provider at this time: Yes The last office visit in the department: 12/04/2023 Does the patient have a future office visit with this provider/department: Yes 04/10/2024 Requested Prescriptions Pending Prescriptions Disp Refills ELIQUIS 5 mg tab(s) Sig: Take 1 tablet by mouth every 12 hours. Patient requests message be sent to Devin George NP who she saw for hospital F/U. Chanda Ray RN January 31, 2024 5:31 PM [facility]09-04-2024 Miscellaneous Notes* Telephone Encounter - Chanda Ray RN - 01/31/2024 5:29 PM EDT The patient has been identified by name and date of : Yes Caregiver verified no other encounters exist for this prescription request: Yes Caregiver confirmed with patient/requestor that no other refills are due, in the near future, with this provider at this time: Yes The last office visit in the department: 12/04/2023 Does the patient have a future office visit with this provider/department: Yes 04/10/2024 Requested Prescriptions Pending Prescriptions Disp Refills ELIQUIS 5 mg tab(s) Sig: Take 1 tablet by mouth every 12 hours. Patient requests message be sent to Devin George NP who she saw for hospital F/U. Chanda Ray RN January 31, 2024 5:31 PM documented in [facility] encounterOur [facility] History of Present illness Narrative* Naty Haddad LPN - 01/30/2024 3:40 PM EDT CC Supra pubic catheter in Place HPI: Debby Bailon is a 43 year old female. The patient is here now for a supra pubic catheter change with diagnosis neurogenic bladder. Procedure: Performed a catheter change. The indwelling supra pubic cook size 18 Fr was removed with catheter tip intact without difficulties. Catheter removed with sediment around catheter with resistance. I did get provider, Cory Box PA-C, to assist. Cory did remove the supra pubic catheter and explained to patient that the catheter bulbs will turn when they deflate at times. Inserted 18 Fr catheter using aseptic technique. Irrigated with 60 mL0.9% sodium chloride. Approximately 60 mLs pink return noted throughout. Bulb inflated with 30 mLs prefilled syringes- sterile water. T-Sponge appliedto SPT base per patient preference attached to drainage bag. The patient tolerated the procedure well. Patient does not like tubing secured. Assessment/Plan: Successful catheter change. Return for catheter changes as planned. Naty Haddad LPN documented in this encounterOur [facility] History of Present illness Narrative* Taya Lane MA - 01/16/2024 4:06 PM EDT Images from the original note were not included. * Ramana Bourgeois RN - 01/16/2024 3:54 PM EDT DIABETES CARE AND EDUCATION VISIT Location: [place] Type of visit: In person individual PATIENT'S MAIN CONCERN TODAY: Support person present for education today: none Cognitive ability: Alert and oriented Motivation to learn: Interested Learning barriers identified by educator: none Method of instruction: written, verbal, and demonstration DIABETES FINDINGS: Monitoring: Using Libre3 Meal Planning: reviewed basic meal planning, pt reports she carb counts and is making better choices like leaving off sauces like ketchup and other high sugar sources. Using sugar free options when available and is aware that some foods are high in carb despite label of sugar free. Medications: Reports she is taking her insulin as prescribed. Family members give her injections asshe is needle phobic and can't currently bear injecting herself HANDOUTS: Healthy You: Survival Skills and Healthy You: Planning Healthy Meals LEARNING RESPONSE: Healthy eating: Demonstrated understanding/competency today or at previous visit - verbalizes proper choices, avoiding high carb foods and using protein rich foods POSSIBLE FUTURE TOPICS: 1. DIABETES CARE AND EDUCATION PLAN: Education completed and annual diabetes education follow-up visit recommended Time Spent (Minutes): 30 This visit note will be communicated to the healthcare provider via access to shared medical record. SIGNATURE: aRmana Bourgeois RN PATIENT NAME: Debby Bailon DATE: January 16, 2024 TIME: 3:54 PM documented in this encounterOur [facility]08-07-2024 Instructions* Patient Instructions* Araceli Torres PA-C - 01/03/2024 4:36 PM EDT Continue lyrica 75mg twice daily Take tylenol as needed for headaches Follow up in 6 months documented in this encounterOur [facility]08-07-2024 History of Present illness Narrative* Araceli Torres PA-C - 01/03/2024 4:00 PM EDT Images from the original note were not included. [facility] Follow up CC: Headache Follow up Last Visit: 08/16/23 ASSESSMENT/PLAN: 1. Cervical vertebral fusion - ICD9: 724.9, ICD10: M43.22 (primary diagnosis) Patient following with neurosurgery, scheduled to see a specialist next month for her cervical stenosis and other spinal stenosis. Notes increased falls and weakness, no significant injuries. Encouraged close follow-up with neurosurgery, going to the emergency department for any red flag signs symptoms. Encouraged her to have imaging completed on Monday. 2. Positional headache - ICD9: 784.0, ICD10: R51.0 3. Intractable chronic migraine with aura and without status migrainosus - ICD9: 346.01, ICD10: G43.E19 Patient does note significant benefit with Lyrica for headaches. Went from 12 headache days a monthto 5 with decreased severity and length of headaches. Initially had some increased fatigue with theLyrica, but is tolerating this well now. Is taking Tylenol as needed for headaches, but notes that many of them she does not need to take an abortive. No new symptoms with her headaches, notes that the agitation is also resolved when she does get a headache discussed possibly increasing Lyrica further to try and continue benefit with her headaches as well as neck pain. Patient is agreeable, will increase Lyrica to 75 mg in the morning and 150 mg at night. Did discuss increased risk for side effe cts and patient is amenable. Patient agreeable to treatment plan of care at this time, questions were answered. Patient to follow-up in 3 months or sooner should any symptoms change or worsen. 4. Paresthesias - ICD9: 782.0, ICD10: R20.2 5. Spina bifida, unspecified hydrocephalus presence, unspecified spinal region (HCC) - ICD9: 741.90, ICD10: Q05.9 6. Spinal stenosis of lumbar region without neurogenic claudication - ICD9: 724.02, ICD10: M48.061 Following with neurosurgery Plan: All options for treatment discussed. Preventative: Lyrica 75mg 3 times daily Abortive: tylenol Follow-up: 3 months Today: Patient is here for headache/migraine follow up. Last seen on 08/16/23 for headache, having 5 a month on Lyrica, propranolol and cymbalta. Increased lyrica to 75 in the morning and 150mg at night. Following with neurosurgery for spinal stenosis. Since last visit headaches have improved. Notes that she rarely has headaches anymore, she maybe has 1 headache a month consistent with migraines. But notes the overall severity of the headaches is also diminished. No new symptoms in terms of neurologic concern. Does note that she is following withneurosurgery and is scheduled to have cervical surgery in February should her A1c continue to come down. 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 Has had 2 falls in the last 2 months, no significant injuries with this. Primarily mechanical, 1 was when she looked too far backwards andfell back. Also notes her sleep has improved since last appointment, still has episodes of insomnia but this is more variable. Neck surgery in February but has to get A1c down. CUETO almost gone. Hospitalized all thorugh October for kidney infection. Splenic infarct Current Headache treatment Preventative: Lyrica, propranolol and cymbalta Abortive: tylenol Medications effective? yes # of doses of abortive medications per month: 1 Total headache days per month: 1 per month Total headache attacks per month: 1 per month Headache free days: No Duration of attacks: few hours Severity of headaches? mild Location: sometimes frontal or sides. Aura: Dots/Spots and Shimmers Accompanying symptoms: photophobia, phonophobia, nausea, vertigo, lightheaded, numbness arms, blurred vision, confusion, neck pain. Quality:throbbing and pressure. Worse with activity: sometimes Pain today: 0/10 Prodrome:none. Tobacco Use: No. Alcohol Use: No Caffeine:No Prior Therapies TPM propranolol Cymbalta Lisinopril Lasix MG Gabapentin- lost track of time Buspar Lyrica Tylenol The patient's prior records were reviewed including and lab testing, imaging, and procedures done since their last visit with me. Review of symptoms including constitutional, eyes, ENT, neck, respiratory, cardiovascular, GI, , musculoskeletal, hematologic, oncologic, endocrine, and psychiatric categories is unchanged. No new details in the family history or social history were offered by the patient. PAST MEDICAL HISTORY 06/25/2020: Amputation of left great toe (HCC) No date: Arthritis Comment: started age 19 07/16/2018: Bilateral leg edema 05/02/2013: Cervical radiculopathy 02/12/2015: Chronic pain 09/30/2021: Colostomy in place ([facility]) 10/07/2021: Constipation due to outlet dysfunction 11/28/2011: Cyst of ovary 03/29/2023: Diabetes mellitus with peripheral vascular disease ([facility]) 06/17/2016: Diabetic eye exam ([facility]) Comment: Last done: 01/25/2017 06/17/2016: Diabetic eye exam ([facility]) Comment: Last done: 03/08/2019 No date: DJD (degenerative joint disease), thoracic 12/05/2017: DM (diabetes mellitus), secondary, uncontrolled, w/renal complications No date: Dysthymic disorder Comment: Depression (non-psychotic), sees [facility]PECT[facility] at [facility]. 03/11/2020: Elevated LFTs 02/21/2019: Essential hypertension 03/11/2020: Fatty liver Comment: US 10/201909/22/2021: History of Manley's palsy 01/04/2016: History of kidney stones 11/28/2011: History of recurrent UTIs 01/04/2016: Hydronephrosis, right 10/07/2021: Hypomagnesemia 04/08/2021: Hyponatremia Comment: Ranges 133-137. Will monitor. 09/12/2013: Lipomeningocele, sacral level 02/12/2015: Lumbago 03/29/2023: Major depressive disorder, recurrent, mild (HCC) 02/28/2018: Medicare annual wellness visit, subsequent Comment: last done: 02/28/2018 10/18/2016: Migraine without aura and without status migrainosus, not intractable No date: Miscarriage 02/28/2018: Mixed hyperlipidemia 08/07/2013: Muscle weakness of left lower extremity 05/02/2013: Neck pain 02/12/2015: Neurogenic bladder 01/06/2016: Neurogenic bowel 02/12/2015: Neuropathy Comment: post back surgery with secondary infection. Seeing Dr. Gregg 09/02/2022: Non-compliance Comment: Even stated in endocrine note from 09/01/2022 08/07/2013: Numbness and tingling of left arm and leg 02/12/2015: Obesity, Class II, BMI 35-39.9 No date: Panic attacks 07/03/2017: Paroxysmal SVT (supraventricular tachycardia) (HCC) Comment: Per 48 Hr event monitor 06/30/2017 02/17/2016: Primary insomnia 12/11/2017: S/P hernia repair 01/06/2016: Spina bifida (HCC) 01/01/2018: Thyroid cyst Comment: Complex right sided cysts. US 12/2017, biopsy per Dr. Josue 01/23/2018 benign. Repeat US in a year. 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 nl 02/11/2020: AMPUTATION TOE,MT-P JT; Left Comment: left big toe 11/07/2018: CATH, SUPRAPUBIC/CYSTOSCOPIC 10/01/2021: COLOSTOMY 11/10/2020: CYSTOSCOPY,REMV CALCULUS,COMPLIC No date: DILATION & CURETTAGE DX&/THER NONOBSTETRIC Comment: Dilation & curettage 2019: HERNIA REPAIR W/MESH 07/20/2018: LEXISCAN STRESS TEST Comment: negative 10/24/2018: NUCLEAR STRESS LEXISCAN (CARD) Comment: negative 2010: PAST SURGICAL HISTORY OF Comment: cholecystectomy 09/2012: PAST SURGICAL HISTORY OF Comment: back surgery x2 & 02/2014: PAST SURGICAL HISTORY OF; Left Comment: foot x2 07/2015: PAST SURGICAL HISTORY OF Comment: ABD procedure; Bowles stoma 09/30/2021: PAST SURGICAL HISTORY OF Comment: Laparoscopic end colostomy 01/2021: PAST SURGICAL HISTORY OF; Left Comment: bone removed left foot 12/11/2017: REPAIR UMBILICAL HERNIA 12/09/2019: STRESS ECHO Comment: Negative 07/18/2017: STRESS TEST Comment: normal 03/15/2018: STRESS TEST Comment: negative 04/13/2023: THYROID FINE NEEDLE ASPIRATION; Right Comment: right mid thyroid ALLERGIES Allergen Reactions Ceftriaxone Anaphylaxis Had skin testing on 12/09 at allergy office which was positive. Also had prior anaphylactic reactionon 09/30/2021. Patient should avoid ceftriaxone and all other cephalosporins. She has tolerated amoxicillin outpatient in the past. Cephalosporins Anaphylaxis Patient had anaphylaxis pre-op on 09/30 when this was given with other induction agents. Patient hadskin testing on 12/09/21 which was positive to ceftriaxone (see separate note from same day). Pleaseavoid all cephalosporins. Mushroom Anaphylaxis Peanut Anaphylaxis Peanuts Anaphylaxis Latex Rash Gabapentin Mental Status Change Patient reports having cognitive/memory issues after taking Mri Contrast [Gadol* GI Upset Current Medications: Urinary Bag (URINARY LEG BAG) kit Use as directed with suprapublic catheter. Urinary Bag (UROSTOMY NIGHT BAG) misc Urinary Night Bag. Use as directed with suprapublic catheter. insulin aspart, niacinamide, (FIASP FLEXTOUCH U-100 INSULIN) 100 unit/mL (3 mL) pen Inject 20 unitswith meals (three times daily) PLUS SS#2 (2 units for every 50 over 150 PRE MEAL blood sugar) TDD~90 units daily insulin glargine (LANTUS SOLOSTAR U-100 INSULIN) 100 unit/mL (3 mL) Inject 40 units once daily Blood-Glucose Sensor (FREESTYLE ROSA 3 SENSOR) tara CHANGE SENSOR EVERY 14 DAYS, USE FOR CONTINUOUS GLUCOSE MONITORING. MULTIPLE INSULIN INJECTIONS. Blood-Glucose Meter,Continuous (FREESTYLE ROSA 3 READER) misc DISPENSE ONE READER KIT. USE FOR CONTINUOUS GLUCOSE MONITORING. MULTIPLE INSULIN INJECTIONS. E11.9 Drainage Bag misc 1 Each every 2 weeks. ELIQUIS 5 mg tab(s) Take 1 tablet by mouth every 12 hours. furosemide (LASIX) 20 mg tablet Take 1 tablet by mouth once daily. Take in evening loratadine (CLARITIN) 10 mg tablet Take 1 tablet by mouth once daily. traZODone (DESYREL) 100 mg tablet Take 1 tablet by mouth daily at bedtime. propranolol (INDERAL) 20 mg tablet Take 1 tablet by mouth two times a day. oxybutynin ER (DITROPAN XL) 15 mg 24 hr Extended Rel Tab Take 1 tablet by mouth once daily. furosemide (LASIX) 40 mg tablet Take 1 tablet by mouth once daily. Take in morning atorvastatin (LIPITOR) 80 mg tablet Take 1 tablet by mouth once daily. DULoxetine (CYMBALTA) 30 mg capsule Take 30 mg by mouth once daily. busPIRone (BUSPAR) 15 mg tablet Take 15 mg by mouth once daily. acetaminophen (TYLENOL) 500 mg tablet Take 650 mg by mouth every 6 hours as needed. lisinopril (ZESTRIL, PRINIVIL) 5 mg tablet Take 1 tablet by mouth once daily. Per Dr. Ermias Salomon sodium chloride irrig solution (NACL 0.9% IRRIGATION BOTTLE) To use for catheter irrigation daily or as needed. Insulin [place], Disposable, (COMFORT EZ PEN NEEDLES) 29 gauge x 1/2 One needle with each lantus shot once a day. Dx: E13.29 on insulin PSEUDOEPHEDRINE HCL ORAL Take 30 mg by mouth as needed. ondansetron orally disintegrating (ZOFRAN ODT) 8 mg disintegrating tablet Take 8 mg by mouth every 8 hours as needed for nausea/vomiting. fluticasone (FLONASE) 50 mcg/actuation nasal spray Use 2 Sprays in each nostril once daily. Rinse mouth after use. Insulin [place], Disposable, 32 gauge x 5/16 ndle Use once daily with Victoza COMPOUNDED PRESCRIPTION Stoma catheter tube. DX: Qo5.4 and K59.2 pregabalin (LYRICA) 75 mg capsule Take 1 capsule by mouth two times a day for 180 days. 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 Stable large nodule in the right lobe of the thyroid gland. Cervical Anatomic Variant: None. Assume 7 cervical vertebrae with counting from the craniocervical junction. Anatomic Thoracic/Lumbar Variant: None. Crest lies at the level of the midportion of the L5 vertebral body and assume there are 5 lumbar-type vertebrae. New Health Issues: No New Social History: No New Family History: No REVIEW OF SYSTEMS: Sleep: Insomnia, GENERAL:No weight loss, malaise or fevers. HEENT:no changes to hearing or vision NECK:negative for neck pain, swelling. RESPIRATORY: Negative for cough, wheezing or shortness of breath. CARDIOVASCULAR: Negative for chest pain, leg swelling or palpitations. GASTROINTESTINAL: Negative for abdominal discomfort, blood in stools or black stools or change in bowel habits GENITOURINARY: No history of dysuria, frequency or incontinence MUSKULOSKELETAL: Negative for joint pain or swelling, back pain or muscle pain. SKIN:Negative for lesions, rash, and itching. HEMATOLOGIC/LYMPHATIC/IMMUNOLOGIC:Negative for prolonged bleeding, bruising easily or swollen nodes. ENDOCRINE: Negative for cold or heat intolerance, polyuria, polydipsia NEUROLOGIC:See HPI PHYSICAL EXAMINATION: BP 110/78 (BP Site: Left Arm, BP Position: Sitting) Pulse 90 Resp 16 Wt 96.7 kg (213 lb 3.2 oz) LMP 11/17/2023 (Exact Date) SpO2 98% BMI 39.74 kg/m General: well appearing, in no acute distress, alert, HEENT: Normocephalic/atraumatic., Skin: Color, texture, turgor normal. No rashes or lesions, Lungs: breathing comfortably, Neurological Examination: Cognition: The patient is alert and oriented times three Lucid and organized in conversation Able to tell detailed medical hx Speech is Normal in fluency volume and clarity Content and Syntax: Normal Comprehension: Normal, able to follow several step commands Cranial Nerves: Pupils normal in size Extraocular movements are grossly intact Good saccades and pursuits No nystagmus Hearing intact Good upgaze Visual hartley are full to confrontation. Facial, motor exam is symmetric Equal v1,V2, V3 Tongue is in midline. No tongue fasciculation. Palate is upgoing bilaterally SCM and trapezius are full. Shoulder shrug intact Normal tone and strength. Normal coordination. Normal gait. Impression: ASSESSMENT/PLAN: 1. Spina bifida, unspecified hydrocephalus presence, unspecified spinal region (HCC) - ICD9: 741.90, ICD10: Q05.9 (primary diagnosis) Following with neurosurgery for surgery in February. 2. Intractable chronic migraine with aura and without status migrainosus - ICD9: 346.01, ICD10: G43.E19 Notes significant improvement in her headaches since last appointment, getting maybe 1 mild migraine a month that is well aborted with Tylenol. Continue with Lyrica 75 mg twice daily, did not increase it as discussed previously and doing well with this. Will continue this therapy and regimen, refill sent for 6 months. Patient was diagnosed with splenic infarct, of note we will avoid any triptans in the future for abortive relief. No new symptoms do not want additional workup at this time. 3. Neuropathy - ICD9: 355.9, ICD10: G62.9 4. Paresthesias - ICD9: 782.0, ICD10: R20.2 Well-controlled with Lyrica 75 mg twice daily. Refills for 6 months were sent. 5. Cervical vertebral fusion - ICD9: 724.9, ICD10: M43.22 Following with neurosurgery, see above. Patient agreeable to treatment plan of care at this time, questions were answered. Is patient is doing well we will follow-up in 6 months or sooner should any symptoms change or worsen. Plan: All options for treatment discussed. Preventative: Lyrica 75 mg BD Abortive: Tylenol Follow-up: 6 months I spent a total of 30 minutes on the date of the service which included preparing to see the patient, [id number] patient care, completing clinical documentation, obtaining and/or reviewing separately obtained history, performing a medically appropriate examination, counseling and educating the pat ient/family/caregiver, and ordering medications, tests, or procedures. PDMP website checked and validated. All prescriptions have been APPROPRIATELY filled. No suspiciousactivity was identified. 01/03/2024 by CAMDEN Pederson PA-C General Neurology [address] [place] [address]. [id number] Appointment: [phone] 12/28/2023 PROMIS Global Health Physical Health Summary Physical health: Poor Everyday physical activity, ability: A little Fatigue: Mild Pain level: 8 General health: Poor Social activities/roles, ability: Fair Physical Health T-Score 32.4 (Poor) Physical Health Percentile 4 PROMIS Global Health Mental Health Summary Quality of life: Fair Mental health (mood,thinking): Fair Social satisfaction: Fair Emotional problems (anxious,depressed): Rarely Mental Health T-Score 38.8 (Fair) Mental Health Percentile 13 PHQ-9 Score: 9(Mild Depression) PHQ-9 Self-Harm: Not at all NEURO-QOL Cognitive Function T-Score 46(Within Normal Limits) Neuro-Qol Cognitive Function Percentile 34 PROMIS Physical Function T-Score 35(Moderate Dysfunction) PROMIS Physical Function Percentile 7 PROMIS Pain Interference T-Score 67(Moderate) PROMIS Pain Interference Percentile 4 Percentiles provide an indication of how a patient's score ranks in relation to the [place] general population. > 31st percentile is within normal limits or better *< 31st percentile is at least SD worse than population, which may be clinically relevant < 16th percentile is at least 1 SD worse than population and warrants attention documented in this encounterOur Lady Of [facility]cy [facility]08-06-[facility]24 History of Present illness Narrative* Naty Haddad LPN - 01/02/2024 3:30 PM EDT CC Supra pubic catheter in Place HPI: Debby Bailon is a 43 year old female. The patient is here now for a supra pubic catheter change with diagnosis neurogenic bladder. Procedure: Performed a catheter change. The indwelling supra pubic cook size 18 Fr was removed with catheter tip intact with some resistance. Repositioned. Catheter removed with sediment around catheter. Inserted 18 Fr catheter using aseptic technique. Irrigated with 60 mL0.9% sodium chloride. Approximately 60 mLs light urine with some pink noted throughout. Bulb inflated with 30 mLs prefilled syringes- sterile water. T-Sponge applied to SPT base per patient preference attached to drainage bag. The patient tolerated the procedure well. Patient does not like tubing secured. Assessment/Plan: Successful catheter change. Return for catheter changes as planned. Naty Haddad LPN documented in this encounterOur Lady Of Mercy Hospital08-06-2024 History of Present illness Narrative* Josesito Verdin LPN - 01/02/2024 1:31 PM EDT Scan on 01/02/2024 12:58 PM by Provider, ExternalCAMDEN: Cardiac Procedure documented in this encounterOur Lady Of Mercy Hospital07-25-2024 Telephone encounter Note * Telephone Encounter - Taya Lane MA - 12/21/2023 8:36 AM EDT Request for office visit notes returned. Confirmation received. Taya Lane MA [facility]07-25-[facility]24 Miscellaneous Notes* Telephone Encounter - Taya Lane MA - 12/21/2023 8:36 AM EDT Request for office visit notes returned. Confirmation received. Taya Lane MA documented in this encounterOur Lady Of Mercy Hospital07-16-2024 Telephone encounter Note * Telephone Encounter - Araseli Sanchez - 12/12/2023 4:43 PM EDT Spoke with patient and scheduled for 12/19 @ 10:00 AM. Araseli Sanchez [facility]07-16-[facility]24 Miscellaneous Notes* Telephone Encounter - Araseli Sanchez - 12/12/2023 4:43 PM EDT Spoke with patient and scheduled for 12/19 @ 10:00 AM. Araseli Sanchez * Telephone Encounter - Rose Pierre LPN - 12/12/2023 4:06 PM EDT Please schedule appt. With OLIVIA Alvarez LPN * Telephone Encounter - Amarilis Mead - 12/12/2023 3:23 PM EDT HemOnc and Urology Consult notes received. CT results included in HemOnc consult note. Uploaded to patient's chart. * Telephone Encounter - Amarilis Mead - 12/11/2023 10:32 AM EDT Spoke to medical records at [facility] and was told to fax request. Sent to [phone]. Will follow up and notify when records have been scanned into chart * Telephone Encounter - Rose Pierre LPN - 12/11/2023 10:12 AM EDT Amarilis, yes, you need to follow up on this Rose Pierre LPN * Telephone Encounter - Amarilis Mead - 12/11/2023 9:09 AM EDT Has someone called [facility] for the hematology and urology note? Do I need to follow up on this? * Telephone Encounter - Araceli Lei LPN - 12/06/2023 9:35 AM EDT Only a discharge summary is scanned in. 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 Araceli Lei LPN * Telephone Encounter - Devin George APRN.CLOTILDE - 12/05/2023 9:35 AM EDT Hospital discharge paperwork from [facility] sent to be scanned into patient chart. * Telephone Encounter - Araceli Lei LPN - 12/04/2023 4:38 PM EDT Will need records to accompany referral and diagnosis, prior to being scheduled. Araceli Lei LPN * Telephone Encounter - Dax Mc - 12/04/2023 4:22 PM EDTSummary: patient scheduling Patient needs active request scheduled for CONSULT TO HEMATOLOGY/ONCOLOGY 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] Please advise and contact patient at phone number that is on file. documented in this encounterOur Lady Of Mercy Hospital07-16-2024 Telephone encounter Note * Telephone Encounter - Rose Pierre LPN - 12/12/2023 4:06 PM EDT Please schedule appt. With OLIVIA Alvarez LPN [facility] Telephone encounter Note* Telephone Encounter - Amarilis Mead - 12/12/2023 3:23 PM EDT HemOnc and Urology Consult notes received. CT results included in HemOnc consult note. Uploaded to patient's chart. [facility]07-[facility] Telephone encounter Note* Telephone Encounter - Brittney Zafar RN - 12/11/2023 1:28 PM EDT Patient returned phone call and was informed of message below. She verbalized understanding. [facility]07-[facility] Miscellaneous Notes* Telephone Encounter - Brittney Zafar RN - 12/11/2023 1:28 PM EDT Patient returned phone call and was informed of message below. She verbalized understanding. * Telephone Encounter - Naty Haddad LPN - 12/11/2023 10:11 AM EDT Called patient. No answer- left message for patient to call clinic. Cory sent order. Naty Haddad LPN * Telephone Encounter - Cory Box PA-C - 12/11/2023 10:09 AM EDT New Rx signed JENIFFER Gaona, CAMDEN [place]STER * Telephone Encounter - Ericka Guthrie LPN - 12/06/2023 3:37 PM EDT Call from [place] at [facility]. They are asking for two separate scripts, Escripts OK. They aresuggesting we order a quantity of 4 per month and they will dispense whatever the maximum amount allowed is per month from insurance (typically 2 or 3) and patient could purchase additional OOP if she likes. Orders pended for escript. Ericka Guthrie LPN * Telephone Encounter - Naty Haddad LPN - 12/06/2023 3:06 PM EDT Called [place] At [facility]. No answer- left message. What specifically do they need order to state since order that Cory provided yesterday was not sufficient? How many bags of each covered per month? Naty Haddad LPN * Telephone Encounter - Nasrin Medina MA - 12/06/2023 10:15 AM EDT Received a call from [place] at [facility]. She received an Rx for generic drainage bag. The patient is wanting leg bags and night bags. The Rx needs to be specific. Please send new order. documented in this encounterOur Lady Of Mercy Hospital07-15-2024 Telephone encounter Note * Telephone Encounter - Amarilis Mead - 12/11/2023 10:32 AM EDT Spoke to medical records at [facility] and was told to fax request. Sent to [phone]. Will follow up and notify when records have been scanned into chart [facility]07-[facility] Telephone encounter Note* Telephone Encounter - Rose Pierre LPN - 12/11/2023 10:12 AM EDT Amarilis, yes, you need to follow up on this Rose Pierre LPN [facility]07-15-[facility] Telephone encounter Note* Telephone Encounter - Naty Haddad LPN - 12/11/2023 10:11 AM EDT Called patient. No answer- left message for patient to call clinic. Cory sent order. Naty Haddad LPN [facility]07-15-[facility] Telephone encounter Note* Telephone Encounter - Cory Box PA-C - 12/11/2023 10:09 AM EDT New Rx signed JENIFFER Gaona, CAMDEN CHESTER [facility]07-[facility] Telephone encounter Note* Telephone Encounter - Amarilis Mead - 12/11/2023 9:09 AM EDT Has someone called [facility] for the hematology and urology note? Do I need to follow up on this? [facility]07-12-[facility] Telephone encounter Note* Telephone Encounter - Michele Cardozo RN - 12/08/2023 12:55 PM EDT Called and spoke with patient via phone. Pt states that she was in the hospital due to multiple infections- bladder and kidney infections and blood clots in her spleen. She was discharged 2 weeks ago on Eliqius 5mg to be continued for 6 months. She is going to be scheduled with the new civil engineering teacher at [facility]. She has seen endocrinology at [facility]. They changed her insulin regimen: 20u at meals and 40u at HS. Pt states that her daily BS have been 130-170. Hgb A1C down to 10.5. She has a follow up appointment with Endocrinology set for February. Pt will call us once she has an appointment with Hematology set- we will need to know at what pointEliquis can be stopped for surgery. Message sent to Dr. Sweeney for review and guidance of BS and A1C goals for surgery. [facility]07-[facility] Miscellaneous Notes* Telephone Encounter - Michele Cardozo RN - 12/08/2023 12:55 PM EDT Called and spoke with patient via phone. Pt states that she was in the hospital due to multiple infections- bladder and kidney infections and blood clots in her spleen. She was discharged 2 weeks ago on Eliqius 5mg to be continued for 6 months. She is going to be scheduled with the new civil engineering teacher at [facility]. She has seen endocrinology at [facility]. They changed her insulin regimen: 20u at meals and 40u at HS. Pt states that her daily BS have been 130-170. Hgb A1C down to 10.5. She has a follow up appointment with Endocrinology set for February. Pt will call us once she has an appointment with Hematology set- we will need to know at what pointEliquis can be stopped for surgery. Message sent to Dr. Sweeney for review and guidance of BS and A1C goals for surgery. * Telephone Encounter - Kathy Herrera - 12/08/2023 12:31 PM EDT General Call Caller : Pt Contact Reason for Call : Pt was seen on 12/05 by endocrinology at [facility]. Pt would like to discuss the details of the appt and also, possibly schedule surgery w Dr. Sweeney. Patient requesting return call ? Yes documented in this encounterOur Lady Of [facility]07-12-2024 Telephone encounter Note * Telephone Encounter - Kathy Herrera - 12/08/2023 12:31 PM EDT General Call Caller : Pt Contact Reason for Call : Pt was seen on 12/05 by endocrinology at [facility]. Pt would like to discuss the details of the appt and also, possibly schedule surgery w Dr. Sweeney. Patient requesting return call ? Yes [facility]07-12-[facility] Telephone encounter Note* Telephone Encounter - Michele Cardozo RN - 12/08/2023 12:16 PM EDT Called patient via phone to follow up. No answer- left a message on patient's VM stating that we had not heard from her about rescheduling her appointment and wanted to follow up with her. Requested patient return our call. Pt had missed her endocrinology appointment which was needed for surgical clearance. [facility]07-[facility] Miscellaneous Notes* Telephone Encounter - Michele Cardozo RN - 12/08/2023 12:16 PM EDT Called patient via phone to follow up. No answer- left a message on patient's VM stating that we had not heard from her about rescheduling her appointment and wanted to follow up with her. Requested patient return our call. Pt had missed her endocrinology appointment which was needed for surgical clearance. * Telephone Encounter - Demarcus Sterling - 10/31/2023 8:19 AM EDT General Call Caller : pt Contact Reason for Call : Pt would like to discuss surgery. Pt missed appt after being admitted to hospitalthe night before. Patient requesting return call ? Yes documented in this encounter[facility] Telephone encounter Note * Telephone Encounter - Ericka Guthrie LPN - 12/06/2023 3:37 PM EDT Call from [facility]. They are asking for two separate scripts, Escripts OK. They aresuggesting we order a quantity of 4 per month and they will dispense whatever the maximum amount allowed is per month from insurance (typically 2 or 3) and patient could purchase additional OOP if she likes. Orders pended for escript. Ericka Guthrie LPN [facility]07-10-[facility]24 Telephone encounter Note* Telephone Encounter - Naty Haddad LPN - 12/06/2023 3:06 PM EDT Called [place] [facility]. No answer- left message. What specifically do they need order to state since order that Cory provided yesterday was not sufficient? How many bags of each covered per month? Naty Haddad LPN [facility]07-10-[facility]24 Telephone encounter Note* Telephone Encounter - Estelita Billingsley - 12/06/2023 2:39 PM EDT Original phone note is dated 12/03 -Dr. Brannon as provider. [facility] Work Phone: [phone]) 766-806407-10-2024 Miscellaneous Notes* Telephone Encounter - Estelita Billingsley - 12/06/2023 2:39 PM EDT Original phone note is dated 12/03 -Dr. Brannon as provider. * Telephone Encounter - Araceli Lei LPN - 12/06/2023 2:32 PM EDT Please see original phone note regarding referral and need for records. Araceli Lei LPN * Telephone Encounter - Estelita Billingsley - 12/06/2023 2:23 PM EDT Please see leticia referral and advise. Was informed by Diana that diagnosis should be scheduled as thrombosis. Okay to schedule with patient. documented in this encounterOur [facility]07-10-2024 Telephone encounter Note * Telephone Encounter - Araceli Lei LPN - 12/06/2023 2:32 PM EDT Please see original phone note regarding referral and need for records. Araceli Lei LPN [facility]07-10-[facility] Telephone encounter Note* Telephone Encounter - Estelita Billingsley - 12/06/2023 2:23 PM EDT Please see leticia referral and advise. Was informed by T[place]leen that diagnosis should be scheduled as thrombosis. Okay to schedule with patient. [facility] Telephone encounter Note* Telephone Encounter - Nilda Underwood APRN.CNP - 12/06/2023 2:02 PM EDT Patient's request for medication is as follows Requested Prescriptions Signed Prescriptions Disp Refills Blood-Glucose Sensor (FREESTYLE ROSA 3 SENSOR) tara 6 Each 3 Sig: CHANGE SENSOR EVERY 14 DAYS, USE FOR CONTINUOUS GLUCOSE MONITORING. MULTIPLE INSULIN INJECTIONS. Authorizing Provider: NILDA UNDERWOOD Blood-Glucose Meter,Continuous (FREESTYLE ROSA 3 READER) misc 1 Each 0 Sig: DISPENSE ONE READER KIT. USE FOR CONTINUOUS GLUCOSE MONITORING. MULTIPLE INSULIN INJECTIONS. E11.9 Authorizing Provider: NILDA UNDERWOOD Order entered - please phone pharmacy and notify patient. Nilda Underwood APRN.CNP [facility]07-[facility] Miscellaneous Notes* Telephone Encounter - Nilda Underwood APRN.CNP - 12/06/2023 2:02 PM EDT Patient's request for medication is as follows Requested Prescriptions Signed Prescriptions Disp Refills Blood-Glucose Sensor (FREESTYLE ROSA 3 SENSOR) tara 6 Each 3 Sig: CHANGE SENSOR EVERY 14 DAYS, USE FOR CONTINUOUS GLUCOSE MONITORING. MULTIPLE INSULIN INJECTIONS. Authorizing Provider: NILDA UNDERWOOD Blood-Glucose Meter,Continuous (FREESTYLE ROSA 3 READER) misc 1 Each 0 Sig: DISPENSE ONE READER KIT. USE FOR CONTINUOUS GLUCOSE MONITORING. MULTIPLE INSULIN INJECTIONS. E11.9 Authorizing Provider: NILDA UNDERWOOD Order entered - please phone pharmacy and notify patient. Nilda Underwood APRN.CNP * Telephone Encounter - Fawn Gutiérrez MA - 12/06/2023 1:31 PM EDT Patient calling and states she received a call from [facility] Medicare does not cover the Dexcom but will cover the Freestyle sensors. Patient needs new Rx sent to [facility]. Patient would like a call when sent. documented in this encounterOur [facility]07-10-2024 Telephone encounter Note * Telephone Encounter - Fawn Gutiérrez MA - 12/06/2023 1:31 PM EDT Patient calling and states she received a call from [facility] Medicare does not cover the Dexcom but will cover the Freestyle sensors. Patient needs new Rx sent to [facility]. Patient would like a call when sent. [facility]07-10[facility] Instructions* Patient Instructions* Nilda Underwood APRN.CNP - 12/06/2023 10:40 AM EDT LANTUS Inject 40 units once daily FIASP meal insulin Inject 20 units with breakfast PLUS SS#2 Inject 20 units with lunch PLUS SS#2 Inject 20 units with dinner PLUS SS#2 Sliding Scale Insulin Dosing PRE MEAL BLOOD SUGAR Sliding Scale 2 (2 units for every 50 mg/dL > 150 mg/dL) SUPPLEMENTAL INSULIN If Blood Glucose (mg/dL) is < 150 Give 0 units 151-200 Give 2 units 201-250 Give 4 units 251-300 Give 6 units 301-350 Give 8 units 351-400 Give 10 units >400 Give 12 units, call physician if blood glucose does not improve. documented in this encounterOur [facility]07-10-2024 Telephone encounter Note * Telephone Encounter - Nasrin Medina MA - 12/06/2023 10:15 AM EDT Received a call from [place] at [facility]. She received an Rx for generic drainage bag. The patient is wanting leg bags and night bags. The Rx needs to be specific. Please send new order. [facility] History of Present illness Narrative* Nilda Underwood APRN.CLOTILDE - 12/06/2023 10:15 AM EDT OFFICE VISIT PROGRESS NOTE CC Debby Bailon is a pleasant 43 year old who presents today with her for blood sugar review, insulin dose adjust. HPI PATIENT OF JEANNETTE WARNER Diagnosed with diabetes mellitus type II, ~ 2013 Last endocrine OV 11/02/2020 with ENDO Kirsten PABON HPI 12/06/2023 Not seen in ENDO for 2 years Here today for DM2 follow up appointment Sts aunt/mom were type 2, mom passed from poorly controlled DM2 Sts was dismissed from an outside ENDO due to non compliance per that provider Patient sts, but I am doing everything I am supposed to, I don't know why it is still elevated Hx of multiple abdominal surgery, has colostomy Is slated for ileostomy in the Fall Also, needs spinal surgery and was told must have A1C reduction prior to surgery Has been in/out of the hospital for various issues in the past month 2 weeks [facility] checked A1C 10.5% Endorses meal plan as below, but admits when her depression kicks in will eat whatever Then feels bad about her failure. Sts I have been really following my plan for the past month Is going to scheduled with ENDO DIRECTOR PROCESS ENGINEERING here in [place] in December Sts follows DM diet and portions meals Breakfast: if eats, will have a breakfast sandwich - buys frozen heats in microwave Lunch: lean cuisine meal Dinner: portioned, smaller meals - meatloaf, mac and cheese and corn OR chicken OR pork chops OR hamburger helper Occ will eat out but not regularly - malagasy - taco Snacks: sugar free items Drink: water only CURRENT DM MEDS FIASP 18-18 plus SS#2 (pt using 15 plus SS # 2 - sts dr cavazos office changed her prandial) LANTUS 33 units SMBG Type of Monitor: Other Frequency of Monitoring: not often times a day BG Values: Breakfast: 150-200 average 170 Lunch: 200 Dinner: 200-250 Bed-time: 200-250 Values over past week: Highest ; Lowest Hypoglycemia: no Diet: No specific diet regimen Exercise: mansoores DM REVIEW OF SYSTEMS Last Eye Exam : 12/2022 - wants to reschedule with different OPTH Last Podiatry Exam: declined and discontinued Cardiorespiratory: negative, denies chest pain, pressure Claudication: no Dyslipidemia: Yes, controlled on medication High Blood Pressure: Yes, controlled on medication CURRENT LABS HEMOGLOBIN A1C Component Ref Range & Units 2 mo ago (10/02/23) 7 mo ago (04/12/23) 10 mo ago (01/16/23) 1 yr ago (08/29/22) 1 yr ago (01/13/22) 2 yr ago (07/29/21) 2 yr ago (03/05/21) Hemoglobin A1C 4.3 - 5.6 % 11.8 High 11.1 High CM 11.2 High CM 10.2 High CM 8.2 R Recent Labs 06/18/18 0940 08/14/18 1136 02/21/19 1113 06/12/19 1127 10/09/19 1135 08/26/21 1641 09/22/21 0938 12/21/22 0518 12/22/22 0616 01/16/23 1228 04/12/23 1411 05/03/23 1558 10/02/23 1623 ALT -- -- 30 29 < > -- < > 26 -- 26 -- -- 69* AST -- -- 33 26 < > -- < > 18 -- 19 -- -- 38* UCRR 59.2 -- 89.8 116.7 -- -- -- -- -- -- -- -- -- UALBR 45.6* -- 483.2* 340.0 -- -- -- -- -- -- -- -- -- UALBCR 77* -- 538* 291* -- -- -- -- -- -- -- -- -- TSH -- -- -- -- < > 1.370 < > -- -- -- 0.269* 0.856 0.483 TPROT -- -- 7.2 7.4 < > -- < > 6.2 -- 7.7 -- -- 7.6 ALB -- -- 3.6* 4.1 < > -- < > 2.9* -- 4.3 -- -- 4.4 CA -- < > 9.2 9.0 < > -- < > 9.0 < > 9.9 9.9 -- 10.4* TBILI -- -- <0.2* 0.2 < > -- < > 0.2 -- <0.2* -- -- 0.2 ALKPHOS -- -- 83 85 < > -- < > 71 -- 93 -- -- 111 GLUC -- < > 228* 234* < > -- < > 130* < > 265* 285* -- 343* BUN -- < > 9 15 < > -- < > 15 < > 17 13 -- 16 CREAT -- < > 0.67 0.71 < > -- < > 0.93 < > 0.75 0.70 -- 0.82 NA -- < > 136 134* < > -- < > 143 < > 137 135* -- 136 K -- < > 4.3 4.2 < > -- < > 4.3 < > 4.1 4.5 -- 4.0 CHLOR -- < > 102 102 < > -- < > 109* < > 101 100 -- 96* CO2 -- < > 17* 22 < > -- < > 24 < > 23 22 -- 25 ANION -- < > 17 10 < > -- < > 10 < > 13 13 -- 15 EGFROTH -- < > >60 >60 < > -- < > 79 < > 103 112 -- 92 HBA1C -- -- 8.1* 9.9* < > -- < > -- -- 11.2* 11.1* -- 11.8* B12 -- -- -- -- -- 404 -- -- -- -- -- -- -- < > = values in this interval not displayed. Recent Labs 06/02/17 1126 10/10/17 1436 02/13/18 0942 06/18/18 0935 08/26/21 1641 01/13/22 0000 02/09/22 1308 08/29/22 1632 01/16/23 1228 04/12/23 1411 10/02/23 1623 TG 71 173* 127 < > -- -- 107 140 -- 226* 462* CHOL 145 170 150 < > -- -- 151 169 -- 188 241* HDL 41* 36* 35* < > -- -- 38* 39* -- 37* 53 VLDL 14 35* 25 < > -- -- 21 28 -- 45* -- LDL 90 99 90 < > -- -- 92 102* -- 106* -- FASTTIME 12 17 12 -- -- -- -- -- -- -- -- TCHDL 3.54 4.72 4.29 < > -- -- 3.97 4.33 -- 5.08 4.55 LDLHDL 2.20 2.75* 2.57* < > -- -- 2.42 2.62* -- 2.86* -- NONHDL 104 134* 115 < > -- -- 113 130* -- 151* 188* HBA1C 8.1* 8.9* 8.3* < > -- < > -- 10.2* 11.2* 11.1* 11.8* HBA0 186 209 192 < > -- -- -- 246 275 272 292 B12 -- -- -- -- 404 -- -- -- -- -- -- < > = values in this interval not displayed. PAST MEDICAL HISTORY Diagnosis Date Amputation of left great toe (HCC) 06/25/2020 Arthritis started age 19 Bilateral leg edema 07/16/2018 Cervical radiculopathy 05/02/2013 Chronic pain 02/12/[address] (HCC) 09/30/2021 Constipation due to outlet dysfunction 10/07/2021 Cyst of ovary 11/28/2011 Diabetes mellitus with peripheral vascular disease (HCC) 03/29/2023 Diabetic eye exam ([facility]) 06/17/2016 Last done: 01/25/2017 Diabetic eye exam (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 Will monitor. Lipomeningocele, sacral level 09/12/2013 Lumbago 02/12/2015 Major depressive disorder, recurrent, mild ([facility]) 03/29/2023 Medicare annual wellness visit, subsequent 02/28/2018 last done: 02/28/2018 Migraine without aura and without status migrainosus, not intractable 10/18/2016 Miscarriage Mixed hyperlipidemia 02/28/2018 Muscle weakness of left lower extremity 08/07/2013 Neck pain 05/02/2013 Neurogenic bladder 02/12/2015 Neurogenic bowel 01/06/2016 Neuropathy 02/12/2015 post back surgery with secondary infection. Seeing Dr. Gregg Non-compliance 09/02/2022 Even stated in endocrine note from 09/01/2022 Numbness and tingling of left arm and leg 08/07/2013 Obesity, Class II, BMI 35-39.9 02/12/2015 Panic attacks Paroxysmal SVT (supraventricular tachycardia) ([facility]) 07/03/2017 Per 48 Hr event monitor 06/30/2017 Primary insomnia 02/17/2016 S/P hernia repair 12/11/2017 Spina bifida (HCC) 01/06/2016 Thyroid cyst 01/01/2018 Complex right sided cysts. US 12/2017, biopsy per Dr. Josue 01/23/2018 benign. Repeat US in a year. 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 nl AMPUTATION TOE,MT-P JT Left 02/11/2020 left big toe CATH, SUPRAPUBIC/CYSTOSCOPIC 11/07/2018 COLOSTOMY 10/01/2021 CYSTOSCOPY,REMV CALCULUS,COMPLIC 11/10/2020 DILATION & CURETTAGE DX&/THER NONOBSTETRIC Dilation & curettage HERNIA REPAIR W/MESH 2019 LEXISCAN STRESS TEST 07/20/2018 negative NUCLEAR STRESS LEXISCAN (CARD) 10/24/2018 negative PAST SURGICAL HISTORY OF 2010 cholecystectomy PAST SURGICAL HISTORY OF 09/2012 back surgery x2 PAST SURGICAL HISTORY OF Left & 02/2014 foot x2 PAST SURGICAL HISTORY OF 07/2015 ABD procedure; Bowles stoma PAST SURGICAL HISTORY OF 09/30/2021 Laparoscopic end colostomy PAST SURGICAL HISTORY OF Left 01/2021 bone removed left foot REPAIR UMBILICAL HERNIA 12/11/2017 STRESS ECHO 12/09/2019 Negative STRESS TEST 07/18/2017 normal STRESS TEST 03/15/2018 negative THYROID FINE NEEDLE ASPIRATION Right 04/13/2023 right mid thyroid FAMILY HISTORY Problem Relation Age of Onset Cancer Father Skin Arthritis Mother Diabetes Mother Heart Mother Hypertension Mother Lipids Mother Stroke Mother Thyroid Mother Cancer Maternal Grandmother LIVER CANCER Cancer Maternal Uncle Great Uncle Cancer Maternal Uncle Great Uncle Anesthesia Problems No Family History Social History Tobacco Use Smoking status: Never Smokeless tobacco: Never Vaping Use Vaping Use: Never used Substance Use Topics Alcohol use: Not Currently Comment: social Drug use: Never Current Outpatient Medications Medication Sig furosemide (LASIX) 20 mg tablet Take 1 tablet by mouth once daily. Take in evening loratadine (CLARITIN) 10 mg tablet Take 1 tablet by mouth once daily. traZODone (DESYREL) 100 mg tablet Take 1 tablet by mouth daily at bedtime. propranolol (INDERAL) 20 mg tablet Take 1 tablet by mouth two times a day. oxybutynin ER (DITROPAN XL) 15 mg 24 hr Extended Rel Tab Take 1 tablet by mouth once daily. furosemide (LASIX) 40 mg tablet Take 1 tablet by mouth once daily. Take in morning atorvastatin (LIPITOR) 80 mg tablet Take 1 tablet by mouth once daily. pregabalin (LYRICA) 75 mg capsule Take 1 capsule by mouth two times a day for 90 days. sulfamethoxazole-trimethoprim (BACTRIM DS) 800-160 mg per tablet Take 1 tablet by mouth every 12 hours. (Patient not taking: Reported on 10/11/2023) DULoxetine (CYMBALTA) 30 mg capsule Take 30 mg by mouth once daily. busPIRone (BUSPAR) 15 mg tablet Take 15 mg by mouth. acetaminophen (TYLENOL) 500 mg tablet Take 650 mg by mouth. insulin glargine (LANTUS SOLOSTAR U-100 INSULIN) 100 unit/mL (3 mL) Inject 33 Units subcutaneously daily at bedtime. E11.65 insulin aspart, niacinamide, (FIASP FLEXTOUCH U-100 INSULIN) 100 unit/mL (3 mL) pen Inject 18 Unitssubcutaneously three times daily before meals. (Includes SS # 2 QAC -> Per Dr. Ermias Salomon) MAX TDD = 55 UNITS / DAY. E11.65 lisinopril (ZESTRIL, PRINIVIL) 5 mg tablet Take 1 tablet by mouth once daily. Per Dr. Ermias Salomon sodium chloride irrig solution (NACL 0.9% IRRIGATION BOTTLE) To use for catheter irrigation daily or as needed. Insulin [place], Disposable, (COMFORT EZ PEN NEEDLES) 29 gauge x 1/2 One needle with each lantus shot once a day. Dx: E13.29 on insulin PSEUDOEPHEDRINE HCL ORAL Take 30 mg by mouth as needed. ondansetron orally disintegrating (ZOFRAN ODT) 8 mg disintegrating tablet 8 mg as needed. fluticasone (FLONASE) 50 mcg/actuation nasal spray Use 2 Sprays in each nostril once daily. Rinse mouth after use. Insulin [place], Disposable, 32 gauge x 5/16 ndle Use once daily with Victoza COMPOUNDED PRESCRIPTION Stoma catheter tube. DX: Qo5.4 and K59.2 No current facility-administered medications for this visit. ALLERGIES Allergen Reactions Ceftriaxone Anaphylaxis Had skin testing on 12/09 at allergy office which was positive. Also had prior anaphylactic reactionon 09/30/2021. Patient should avoid ceftriaxone and all other cephalosporins. She has tolerated amoxicillin outpatient in the past. Cephalosporins Anaphylaxis Patient had anaphylaxis pre-op on 09/30 when this was given with other induction agents. Patient hadskin testing on 12/09/21 which was positive to ceftriaxone (see separate note from same day). Pleaseavoid all cephalosporins. Mushroom Anaphylaxis Peanut Anaphylaxis Peanuts Anaphylaxis Latex Rash Gabapentin Mental Status Change Patient reports having cognitive/memory issues after taking Mri Contrast [Gadol* GI Upset REVIEW OF SYSTEMS - POSITIVES IN BOLD GENERAL:No weight loss, malaise or fevers HEENT:Negative for frequent or significant headaches, No changes in hearing or vision, no nose bleeds or other nasal problems NECK:Negative for lumps, goiter, pain and significant neck swelling RESPIRATORY: Negative for cough, hemoptysis, wheezing, COPD, dyspnea or shortness of breath CARDIOVASCULAR: Negative for chest pain, leg swelling, hypertension, CHF or palpitations PHYSICAL EXAMINATION: BP 112/64 (BP Site: Right Arm, BP Position: Sitting, BP Cuff Size: Regular Adult) Pulse 80 Resp20 Ht 154.9 cm (5' 1) Wt 96.9 kg (213 lb 9.6 oz) LMP 11/17/2023 (Exact Date) SpO2 98% BMI 40.36 kg/m GENERAL: alert and appropriate, in no distress and well-hydrated, well nourished SKIN: no rash noted HEAD: normocephalic, no abnormality or lesion noted EYES: PERRL NECK: full ROM, no cervical LNs noted ACANTHOSIS: none noted EXTREMITIES: normal NEUROLOGIC: no obvious deficit ASSESSMENT/PLAN (E11.9, Z79.4) Diabetes mellitus treated with insulin (HCC) (primary encounter diagnosis) Comment: RECOMMEND DEXCOM CGM for BG monitoring. LANTUS Inject 40 units once daily FIASP meal insulin Inject 20 units with breakfast PLUS SS#2 Inject 20 units with lunch PLUS SS#2 Inject 20 units with dinner PLUS SS#2 Sliding Scale Insulin Dosing PRE MEAL BLOOD SUGAR Sliding Scale 2 (2 units for every 50 mg/dL > 150 mg/dL) SUPPLEMENTAL INSULIN If Blood Glucose (mg/dL) is < 150 Give 0 units 151-200 Give 2 units 201-250 Give 4 units 251-300 Give 6 units 301-350 Give 8 units 351-400 Give 10 units >400 Give 12 units, call physician if blood glucose does not improve. F/U PRN or 3-6 months Recommended diet: Low carbohydrate and Low saturated fat, low simple sugar, high fiber diet Exercise minimally 150 minutes per week, increase as tolerated. Adequate hydration - 1/2 body wgt in oz of water daily, unless fluid restriction applies. I instructed the patient to monitor blood sugars 4 times per day If blood sugars are persistently high or low, to call our office. Patient to continue to follow up with her PCP and with other consultants regarding her other medical problems. Plan: COMPREHENSIVE METABOLIC PANEL, LIPID PANEL, NONFASTING, ALBUMIN/CREATININE RATIO, URINE, HEMOGLOBIN A1C Nilda Underwood CNP documented in this encounterOur [facility] Telephone encounter Note * Telephone Encounter - Araceli Lei LPN - 12/06/2023 9:35 AM EDT Only a discharge summary is scanned in. 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 Araceli Lei LPN [facility]07-09[facility] History of Present illness Narrative* Cory Box PA-C - 12/05/2023 6:28 PM EDT Images from the original note were not included. [facility], [facility] EST PATIENT CLINIC NOTE SERVICE DATE: December 05, 2023 NAME: Debby Bailon CHIEF COMPLAINT: Neurogenic Bladder with Urine Retention and SPT exchange HISTORY OF PRESENT ILLNESS: Debby Bailon is a 43 year old female an established patient following up for Neurogenic Bladder with Urine Retention and SPT exchange The patient reports doing well with SPT, needs Rx for Collection Bags given in written script Patient stated that last visit with Dr. Sears she agreed that if she can get her HgBA1C lowered She would be able to covert the SPT to a Urostomy LUTS: SPT in place LABS: Creatinine Date Value Ref Range Status 10/02/2023 0.82 0.58 - 0.96 mg/dL Final 04/12/2023 0.70 0.58 - 0.96 mg/dL Final 01/16/2023 0.75 0.58 - 0.96 mg/dL Final MEDICATIONS: ELIQUIS 5 mg tab(s) Take 1 tablet by mouth every 12 hours. vancomycin (VANCOCIN) 250 mg capsule Take 250 mg by mouth four times daily. furosemide (LASIX) 20 mg tablet Take 1 tablet by mouth once daily. Take in evening loratadine (CLARITIN) 10 mg tablet Take 1 tablet by mouth once daily. traZODone (DESYREL) 100 mg tablet Take 1 tablet by mouth daily at bedtime. propranolol (INDERAL) 20 mg tablet Take 1 tablet by mouth two times a day. oxybutynin ER (DITROPAN XL) 15 mg 24 hr Extended Rel Tab Take 1 tablet by mouth once daily. furosemide (LASIX) 40 mg tablet Take 1 tablet by mouth once daily. Take in morning atorvastatin (LIPITOR) 80 mg tablet Take 1 tablet by mouth once daily. pregabalin (LYRICA) 75 mg capsule Take 1 capsule by mouth two times a day for 90 days. DULoxetine (CYMBALTA) 30 mg capsule Take 30 mg by mouth once daily. busPIRone (BUSPAR) 15 mg tablet Take 15 mg by mouth once daily. acetaminophen (TYLENOL) 500 mg tablet Take 650 mg by mouth every 6 hours as needed. insulin glargine (LANTUS SOLOSTAR U-100 INSULIN) 100 unit/mL (3 mL) Inject 33 Units subcutaneously daily at bedtime. E11.65 insulin aspart, niacinamide, (FIASP FLEXTOUCH U-100 INSULIN) 100 unit/mL (3 mL) pen Inject 18 Unitssubcutaneously three times daily before meals. (Includes SS # 2 QAC -> Per Dr. Ermias Salomon) MAX TDD = 55 UNITS / DAY. E11.65 lisinopril (ZESTRIL, PRINIVIL) 5 mg tablet Take 1 tablet by mouth once daily. Per Dr. Ermias Salomon sodium chloride irrig solution (NACL 0.9% IRRIGATION BOTTLE) To use for catheter irrigation daily or as needed. Insulin [place], Disposable, (COMFORT EZ PEN NEEDLES) 29 gauge x 1/2 One needle with each lantus shot once a day. Dx: E13.29 on insulin PSEUDOEPHEDRINE HCL ORAL Take 30 mg by mouth as needed. ondansetron orally disintegrating (ZOFRAN ODT) 8 mg disintegrating tablet 8 mg as needed. fluticasone (FLONASE) 50 mcg/actuation nasal spray Use 2 Sprays in each nostril once daily. Rinse mouth after use. Insulin [place], Disposable, 32 gauge x 5/16 ndle Use once daily with Victoza Drainage Bag misc 1 Each every 2 weeks. COMPOUNDED PRESCRIPTION Stoma catheter tube. DX: Qo5.4 and K59.2 (Patient not taking: Reported on 12/05/2023) PAST MEDICAL HISTORY: PAST MEDICAL HISTORY Diagnosis Date Amputation of left great toe ([facility]) 06/25/2020 Arthritis started age 19 Bilateral leg edema 07/16/2018 Cervical radiculopathy 05/02/2013 Chronic pain 02/12/[address] ([facility]) 09/30/2021 Constipation due to outlet dysfunction 10/07/2021 Cyst of ovary 11/28/2011 Diabetes mellitus with peripheral vascular disease ([facility]) 03/29/2023 Diabetic eye exam ([facility]) 06/17/2016 Last done: 01/25/2017 Diabetic eye exam (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 Will monitor. Lipomeningocele, sacral level 09/12/2013 Lumbago 02/12/2015 Major depressive disorder, recurrent, mild ([facility]) 03/29/2023 Medicare annual wellness visit, subsequent 02/28/2018 last done: 02/28/2018 Migraine without aura and without status migrainosus, not intractable 10/18/2016 Miscarriage Mixed hyperlipidemia 02/28/2018 Muscle weakness of left lower extremity 08/07/2013 Neck pain 05/02/2013 Neurogenic bladder 02/12/2015 Neurogenic bowel 01/06/2016 Neuropathy 02/12/2015 post back surgery with secondary infection. Seeing Dr. Gregg Non-compliance 09/02/2022 Even stated in endocrine note from 09/01/2022 Numbness and tingling of left arm and leg 08/07/2013 Obesity, Class II, BMI 35-39.9 02/12/2015 Panic attacks Paroxysmal SVT (supraventricular tachycardia) ([facility]) 07/03/2017 Per 48 Hr event monitor 06/30/2017 Primary insomnia 02/17/2016 S/P hernia repair 12/11/2017 Spina bifida (HCC) 01/06/2016 Thyroid cyst 01/01/2018 Complex right sided cysts. US 12/2017, biopsy per Dr. Josue 01/23/2018 benign. Repeat US in a year. 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) 10/18/2016 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) ([facility]) 02/19/2016 Ventral hernia without obstruction or gangrene Weakness of both upper extremities 08/07/2013 Chronic REVIEW OF SYSTEMS: GENERAL: No fever, chills, weight loss, or fatigue. PHYSICAL EXAMINATION: Blood pressure 120/82, pulse 108, temperature 36.5 C (97.7 F), temperature source Temporal, resp. rate 16, height 154.9 cm (5' 1), weight 96.6 kg (213 lb), last menstrual period 11/17/2023, SpO2 99%. GENERAL: WNL nutrition, no deformities, healthy appearing SPT in place after exchange today PROBLEM LIST REVIEW: Yes ASSESSMENT/PLAN: 1. Neurogenic bladder - ICD9: 596.54, ICD10: N31.9 (primary diagnosis) 2. Suprapubic catheter (HCC) - ICD9: V44.59, ICD10: Z93.59 > DRAINAGE BAG > Chronic Conditions: Stable,Well Controlled and monitored with SPT and follow- up visits > Testing Recommendations: Ordered today; > Continue SPT Exchanges monthly > 1 month follow-up for SPT exchange JENIFFER Gaona, CAMDEN CHESTER * Cory Box PA-C - 12/05/2023 4:51 PM EDT CC Supra pubic catheter in Place HPI: Debby Bailon is a 43 year old female. The patient is here now for a supra pubic catheter change with diagnosis neurogenic bladder. Patient reports she was seen at [facility] and [facility] in October and neither had 18 FR catheter. They did use 20 FR. Procedure: Performed a catheter change. The indwelling supra pubic cook size 20 Fr was removed with catheter tip intact without difficulty. Inserted 18 Fr catheter using aseptic technique. Irrigated with 60 mL0.9% sodium chloride. Approximately 60 mLs light pale yellow urine with some sediment throughoutnoted. Bulb inflated with 30 mLs prefilled syringes- sterile water. T-Sponge applied to SPT base per patient preference attached to drainage bag. The patient tolerated the procedure well. Patient does notlike tubing secured. Patient request order for leg bags to [facility]- provider notified. Assessment/Plan: Successful catheter change. Return for catheter changes as planned. Appointment scheduled with CAMDEN Hillman LPN [facility] Tele[facility] encounter Note * Telephone Encounter - Devin George APRN.CNP - 12/05/2023 9:35 AM EDT Hospital discharge paperwork from [facility] sent to be scanned into patient chart. [facility]07-[facility] Telephone encounter Note* Telephone Encounter - Araceli Lei LPN - 12/04/2023 4:38 PM EDT Will need records to accompany referral and diagnosis, prior to being scheduled. 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 [facility]07-08[facility] History of Present illness Narrative* Devin George APRN.BURIAL AGENT - 12/04/2023 3:58 PM EDT Chief Complaint Patient presents with: Hospital F/U [facility] Debby Bailon is a 43 year old female who presents here today for Above Complaints.. Patient presents for hospital follow up. Patient was in [place] for UTI, Pyelonephritis, C Diff andSplenic infarct from 11/18-11/22. Patient was discharged on eliquis and vancomycin from [facility] as well as receiving antibiotics for the UTI/Pyelo while hospitalized. Past medical history, appointments, medications, allergies reviewed. Previous Medical History PAST MEDICAL HISTORY Diagnosis Date Amputation of left great toe (HCC) 06/25/2020 Arthritis started age 19 Bilateral leg edema 07/16/2018 Cervical radiculopathy 05/02/2013 Chronic pain 02/12/[address] ([facility]) 09/30/2021 Constipation due to outlet dysfunction 10/07/2021 Cyst of ovary 11/28/2011 Diabetes mellitus with peripheral vascular disease ([facility]) 03/29/2023 Diabetic eye exam ([facility]) 06/17/2016 Last done: 01/25/2017 Diabetic eye exam (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 Will monitor. Lipomeningocele, sacral level 09/12/2013 Lumbago 02/12/2015 Major depressive disorder, recurrent, mild (HCC) 03/29/2023 Medicare annual wellness visit, subsequent 02/28/2018 last done: 02/28/2018 Migraine without aura and without status migrainosus, not intractable 10/18/2016 Miscarriage Mixed hyperlipidemia 02/28/2018 Muscle weakness of left lower extremity 08/07/2013 Neck pain 05/02/2013 Neurogenic bladder 02/12/2015 Neurogenic bowel 01/06/2016 Neuropathy 02/12/2015 post back surgery with secondary infection. Seeing Dr. Gregg Non-compliance 09/02/2022 Even stated in endocrine note from 09/01/2022 Numbness and tingling of left arm and leg 08/07/2013 Obesity, Class II, BMI 35-39.9 02/12/2015 Panic attacks Paroxysmal SVT (supraventricular tachycardia) (HCC) 07/03/2017 Per 48 Hr event monitor 06/30/2017 Primary insomnia 02/17/2016 S/P hernia repair 12/11/2017 Spina bifida (HCC) 01/06/2016 Thyroid cyst 01/01/2018 Complex right sided cysts. US 12/2017, biopsy per Dr. Josue 01/23/2018 benign. Repeat US in a year. 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 nl AMPUTATION TOE,MT-P JT Left 02/11/2020 left big toe CATH, SUPRAPUBIC/CYSTOSCOPIC 11/07/2018 COLOSTOMY 10/01/2021 CYSTOSCOPY,REMV CALCULUS,COMPLIC 11/10/2020 DILATION & CURETTAGE DX&/THER NONOBSTETRIC Dilation & curettage HERNIA REPAIR W/MESH 2019 LEXISCAN STRESS TEST 07/20/2018 negative NUCLEAR STRESS LEXISCAN (CARD) 10/24/2018 negative PAST SURGICAL HISTORY OF 2010 cholecystectomy PAST SURGICAL HISTORY OF 09/2012 back surgery x2 PAST SURGICAL HISTORY OF Left & 02/2014 foot x2 PAST SURGICAL HISTORY OF 07/2015 ABD procedure; Bowles stoma PAST SURGICAL HISTORY OF 09/30/2021 Laparoscopic end colostomy PAST SURGICAL HISTORY OF Left 01/2021 bone removed left foot REPAIR UMBILICAL HERNIA 12/11/2017 STRESS ECHO 12/09/2019 Negative STRESS TEST 07/18/2017 normal STRESS TEST 03/15/2018 negative THYROID FINE NEEDLE ASPIRATION Right 04/13/2023 right mid thyroid Family History FAMILY HISTORY Problem Relation Age of Onset Cancer Father Skin Arthritis Mother Diabetes Mother Heart Mother Hypertension Mother Lipids Mother Stroke Mother Thyroid Mother Cancer Maternal Grandmother LIVER CANCER Cancer Maternal Uncle Great Uncle Cancer Maternal Uncle Great Uncle Anesthesia Problems No Family History Patient Allergies ALLERGIES Allergen Reactions Ceftriaxone Anaphylaxis Had skin testing on 12/09 at allergy office which was positive. Also had prior anaphylactic reactionon 09/30/2021. Patient should avoid ceftriaxone and all other cephalosporins. She has tolerated amoxicillin outpatient in the past. Cephalosporins Anaphylaxis Patient had anaphylaxis pre-op on 09/30 when this was given with other induction agents. Patient hadskin testing on 12/09/21 which was positive to ceftriaxone (see separate note from same day). Pleaseavoid all cephalosporins. Mushroom Anaphylaxis Peanut Anaphylaxis Peanuts Anaphylaxis Latex Rash Gabapentin Mental Status Change Patient reports having cognitive/memory issues after taking Mri Contrast [Gadol* GI Upset Current Medications Current Outpatient Medications on File Prior to Visit Medication Sig furosemide (LASIX) 20 mg tablet Take 1 tablet by mouth once daily. Take in evening loratadine (CLARITIN) 10 mg tablet Take 1 tablet by mouth once daily. traZODone (DESYREL) 100 mg tablet Take 1 tablet by mouth daily at bedtime. propranolol (INDERAL) 20 mg tablet Take 1 tablet by mouth two times a day. oxybutynin ER (DITROPAN XL) 15 mg 24 hr Extended Rel Tab Take 1 tablet by mouth once daily. furosemide (LASIX) 40 mg tablet Take 1 tablet by mouth once daily. Take in morning atorvastatin (LIPITOR) 80 mg tablet Take 1 tablet by mouth once daily. pregabalin (LYRICA) 75 mg capsule Take 1 capsule by mouth two times a day for 90 days. DULoxetine (CYMBALTA) 30 mg capsule Take 30 mg by mouth once daily. busPIRone (BUSPAR) 15 mg tablet Take 15 mg by mouth. acetaminophen (TYLENOL) 500 mg tablet Take 650 mg by mouth. insulin glargine (LANTUS SOLOSTAR U-100 INSULIN) 100 unit/mL (3 mL) Inject 33 Units subcutaneously daily at bedtime. E11.65 insulin aspart, niacinamide, (FIASP FLEXTOUCH U-100 INSULIN) 100 unit/mL (3 mL) pen Inject 18 Unitssubcutaneously three times daily before meals. (Includes SS # 2 QAC -> Per Dr. Ermias Salomon) MAX TDD = 55 UNITS / DAY. E11.65 lisinopril (ZESTRIL, PRINIVIL) 5 mg tablet Take 1 tablet by mouth once daily. Per Dr. Ermias Salomon sodium chloride irrig solution (NACL 0.9% IRRIGATION BOTTLE) To use for catheter irrigation daily or as needed. Insulin [place], Disposable, (COMFORT EZ PEN NEEDLES) 29 gauge x 1/2 One needle with each lantus shot once a day. Dx: E13.29 on insulin PSEUDOEPHEDRINE HCL ORAL Take 30 mg by mouth as needed. ondansetron orally disintegrating (ZOFRAN ODT) 8 mg disintegrating tablet 8 mg as needed. fluticasone (FLONASE) 50 mcg/actuation nasal spray Use 2 Sprays in each nostril once daily. Rinse mouth after use. Insulin [place], Disposable, 32 gauge x 5/16 ndle Use once daily with Victoza COMPOUNDED PRESCRIPTION Stoma catheter tube. DX: Qo5.4 and K59.2 No current facility-administered medications on file prior to visit. Social History Social History Tobacco Use Smoking status: Never Smokeless tobacco: Never Vaping Use Vaping Use: Never used Substance Use Topics Alcohol use: Not Currently Comment: social Drug use: Never Review of Symptoms REVIEW OF SYSTEMS SEE HPI EXAM: BP 119/79 Pulse 89 Resp 16 Wt 96.6 kg (213 lb) LMP 09/07/2023 (Approximate) BMI 40.25 kg/m General Appearance: Well appearing, alert, in no acute distress, well-hydrated, well nourished.. Lungs: Lungs clear to auscultation. No wheezing, rhonchi, rales.. Heart: RRR without murmur, gallop, or rubs. No ectopy. Abdomen: Negative findings: no masses palpable, no organomegaly, bowel sounds normal, and soft, Positive findings: tenderness mild LUQ and LLQ. Peripheral Pulses: Normal. Health Maintenance List BP Controlled (<130/80) due on 07/28/2022 Dilated Retinal Exam due on 10/26/2023 Mammogram Screening due on 04/05/2024 Cervical Cancer Screening due on 05/02/2024 HbA1C due on 01/02/2024 Influenza Vaccine(1) due on 01/28/2024 LDL Cholesterol due on 10/01/2024 Annual PCP Team Chronic Disease Visit due on 10/08/2024 DTaP,Tdap,Td Vaccine(3 - Td or Tdap) due on 03/23/2031 Pneumococcal Vaccine(3 of 3 - PPSV23 or PCV20) due on 2046 Hepatitis C Screening Completed HIV Screening Completed HPV Vaccine Aged Out Hepatitis B Vaccine Discontinued Urine Albumin:Creatinine Ratio Discontinued Diabetic Foot Exam Discontinued Covid-19 Vaccine Discontinued ASSESSMENT/PLAN: 1. 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 Urinary tract infection with hematuria, site unspecified - ICD9: 599.0, 599.70, ICD10: N39.0, R31.9 acute -resolved 3. Acute pyelonephritis - ICD9: 590.10, ICD10: N10 -Resolved 4. C. difficile colitis - ICD9: 008.45, ICD10: A04.72 -Stool consistency returning to normal -complete oral vancomycin 5. Colostomy in place (HCC) - ICD9: V44.3, ICD10: Z93.3 -Stool consistency returning to normal 6. Suprapubic catheter (HCC) - ICD9: V44.59, ICD10: Z93.59 -Follows with urology, appt 12/04 Devin George APRN.BURIAL AGENT documented in [facility] Hospital Discharge instructions Patient Education 11/22/2023 14:43:39 Clostridioides Difficile Infection, [id number] Clostridioides Difficile Infection Clostridioides difficile, or C. diff, infection is caused by germs (bacteria). It causes irritationand swelling of the colon (colitis). This infection can spread from person to person (is contagious). You may also get C. diff from foodor water, or from touching surfaces that have the germs on them. What are the causes? Certain germs live in the colon and help to digest food. This infection starts when the balance of helpful germs in the colon changes, and the C. diff germs grow out of control. This is caused by taking antibiotics. What increases the risk? Your risk is higher if you: Take certain antibiotics that kill many types of germs. Take antibiotics for a long time. Stay for a long time in a health care setting, such as: ?A hospital. ?A long-term care facility. Are older than age 65. Your risk is somewhat higher if you: Have had C. diff infection before or had contact with C. diff germs. Have a weak body defense system (immune system). Take a medicine for a long time that reduces stomach acid. This includes proton pump inhibitors. Have serious health problems, such as: ?Colon cancer. ?Inflammatory bowel disease (IBD). Have had a procedure or surgery on your gastrointestinal (GI) tract. Some people develop C. diff even though they are not clearly at risk. What are the signs or symptoms? Watery poop (diarrhea). Fever. Tiredness (fatigue). Loss of appetite. Nausea. Swelling, pain, cramping, or tenderness in your belly (abdomen). How is this treated? Stopping the antibiotics that you were taking when the C. diff infection began. Do this only as told by your doctor. Taking certain antibiotics to stop C. diff from growing. Taking donor poop (stool) from a healthy person and placing it into the colon. This may be done if the infection keeps coming back. Having surgery to remove the infected part of the colon. This is rare. Follow these instructions at home: Medicines Take [id number] and prescription medicines only as told by your doctor. Take your antibiotic medicine as told by your doctor. Do not stop taking the antibiotic even if youstart to feel better. Do not treat watery poop with medicines unless your doctor tells you to. Eating and drinking Follow instructions from your doctor about eating or drinking. Eat bland foods in small amounts as you are able. These foods include: ?Bananas. ?Applesauce. ?Rice. ?Low-fat (lean) meats. ?[place]. ?Crackers. Follow your doctor's instructions on how to get enough fluids into your body. You may need to: ?Drink clear fluids. This includes water, fruit juice you have added water to, or low-calorie sports drinks. ?Suck on ice chips. ?Take an ORS (oral rehydration solution). Avoid milk, caffeine, and alcohol. Drink enough fluid to keep your pee (urine) pale yellow. Activity Rest as told by your doctor. Return to your normal activities as told by your doctor. Ask your doctor what activities are safe for you. General instructions Wash your hands often with soap and water. Do this for at least 20 seconds. Bathe using soap and water daily. Be sure your home is clean before you leave the hospital or clinic to go home. Continue daily cleaning for at least a week after going home. Keep all follow-up visits as told by your doctor. This is important. How is this prevented? Hand hygiene Wash your hands well before you cook and after you use the bathroom. Use soap and water for at least 20 seconds. Make sure that people who live with you also wash their hands often. If you are being treated at a hospital or clinic, make sure that: ?All doctors and nurses wash their hands with soap and water before touching you. ?All visitors wash their hands with soap and water before touching you. Contact precautions If you get watery poop while you are in the hospital or a long-term care facility, let your doctor know right away. When you visit someone in the hospital or a long-term care facility, follow the rules for wearing [place], gloves, or other protective equipment. If possible, avoid contact with people who have watery poop. If you are sick and live with other people, use a separate bathroom, if you can. Clean environment Clean surfaces that are touched often every day. Use a product that has chlorine bleach in it. The bleach should be 10% solution. Be sure to: ?Read the instructions to find out if the product you are using will work on what you are cleaning. ?Clean toilets, bathtubs, sinks, door knobs, and work surfaces. If you are in the hospital, make sure that the staff cleans the surfaces in your room each day. Tell someone right away if body fluids have splashed or spilled. Washing clothes and linens Use laundry soap that has chlorine bleach in it to wash clothes and linens. Be sure to: ?Use powder soap instead of liquid. ?Run your washing machine on the hot setting with nothing but soap in it. Do this once a month. Contact a doctor if: Your symptoms do not get better or they get worse. Your symptoms go away and then come back. You have a fever. You have new symptoms. Get help right away if: You have more pain or tenderness in your belly. Your poop is mostly bloody. Your poop looks dark black and tarry. You cannot eat or drink without vomiting. You have signs of not having enough fluids in your body. These include: ?Dark pee, very little pee, or no pee. ?Cracked lips or dry mouth. ?No tears when you cry. ?Sunken eyes. ?Feeling sleepy. ?Feeling weak or dizzy. Summary C. diff infection may happen after taking antibiotic medicines. Symptoms include watery poop, fever, tiredness, loss of appetite, nausea, and belly problems. Treatment starts with stopping the antibiotics you were using when the infection began. Certain antibiotics are then used to stop C. diff from growing. This infection is sometimes treated by placing donor poop into the colon or doing surgery. Washing hands and cleaning every day can help keep C. diff from spreading. This information is not intended to replace advice given to you by your health care provider. Make sure you discuss any questions you have with your health care provider. Document Released: 03/12/2010 Document Revised: 10/09/2019 Document Reviewed: 10/09/2019 [employer] Patient Education 2020 H.BLOOM. Follow Up Care 11/18/2023 02:07:59 With:WILL BRANNON MD Address: [address] [place] [address]- When:1-2 days Comments:Please call the office to schedule a follow-up appointment. With:KRISTINE MOON MD Address: [address] [facility] [place] [address]- [phone] When: Unknown Comments:Follow-up in 1 to 2 weeks [facility] 06-26-2024 Note Discharge Instructions Thank you for allowing [facility] to assist you with your healthcare needs. The following is importantdischarge information regarding your hospital visit. Your Care Team WILL BRANNON MD What to do next Follow Up Appointments Follow Up with WILL BRANNON MD When:Within 1-2 days Where:[address] [facility] [place] [place] [address]- Additional Information: Please call the office to schedule a follow-up appointment. Follow Up with KRISTINE MOON MD Where:[address] [facility] Hemat[facility] [place] [address]- [phone] Additional Information: Follow-up in 1 to 2 weeks The Following Activity and Diet Have Been Ordered for You Discharge Activity - Ordered -- Resume your pre-hospitalization activity, 11/22/23 10:53:00 EDT Discharge Diet - Ordered -- Type of Diet: Regular, 11/22/23 10:53:00 EDT The Following Equipment Has Been Ordered for You No qualifying data available. The Following Treatments Have Been Ordered for You Discharge Labs No qualifying data available. Discharge Radiology No qualifying data available. Other Therapies Discharge Event Monitor Instructions - Ordered -- 11/18/23 15:19:49 EDT, You have been ordered mobile outpatient telemetry. You should receive a device in the mail with further instructions. If you have not received a device within 7 days after discharge, please call [facility] at [phone]. Discharge Event Monitor Instructions - Ordered -- 11/22/23 14:40:45 EDT, You have been ordered mobile outpatient telemetry. You should receive a device in the mail with further instructions. If you have not received a device within 7 days after discharge, please call [facility] at [phone]. Post Acute Orders No qualifying data available. Someone Will Contact You Regarding These Home Health Referrals No home referrals have been ordered for you. No one will call you. Allergies Mushrooms(Severe) Throat swelling Peanuts(Severe) Throat swelling Rocephin(Severe) Hives cephalosporins(Severe) Anaphylaxis, Hives gabapentin (Moderate) psychotic breakdown Latex (Mild) Hives contrast media (gadolinium-based) penicillin Unknown vancomycin Medications Please ask your primary doctor or pharmacist before taking any other medication not listed, including over the counter drugs, herbal medications, vitamins and or supplements as they may interact withyour home medications. What How Much When Instructions Last Dose New apixaban (Eliquis 5 mg oral tablet) 1 tab(s) by mouth Two (2) times a day Pickup at [facility] New sulfamethoxazole-trimethoprim (Bactrim DS 800 mg-160 mg oral tablet) 1 tab(s) by mouth Two (2) times a day Duration: 2 Days Pickup at [facility] [address] New vancomycin (vancomycin 25 mg/ mL ORAL solution) 5 Milliliter by mouth Four (4) times a day Duration: 14 Days Pickup at [facility] [address] Unchanged atorvastatin (atorvastatin 80 mg oral tablet) 1 tab(s) by mouth Every day Unchanged DME (DME MISCellaneous) See instructions Sterile water, 40 syringes, 40 needles, alchohol swabs. Unchanged DULoxetine (Cymbalta 30 mg oral delayed release capsule) 1 cap by mouth Once a day Unchanged furosemide (Lasix 20 mg oral tablet) 2 tab(s) by mouth Once a day (in the morning) Unchanged furosemide (Lasix 20 mg oral tablet) 1 tab(s) by mouth Once a day (in the evening) Unchanged insulin aspart (Novolog) (Fiasp FlexTouch 100 units/ mL injectable solution) See instructions Sliding scale TIDAC Unchanged insulin glargine (Lantus 100 units/ mL10 ml vial solution) 33 unit(s) Subcutaneous Daily at bedtime Unchanged lisinopril (lisinopril 2.5 mg oral tablet) 1 tab(s) by mouth Once a day Unchanged oxybutynin (oxybutynin 15 mg/ 24 hr oral tablet, extended release) 1 tab(s) by mouth Once a day (in the evening) Unchanged pregabalin (pregabalin 75 mg oral capsule) 1 cap by mouth Two (2) times a day Unchanged propranolol (propranolol 20 mg oral tablet) 0.5 tab(s) by mouth Two (2) times a day Unchanged traZODone (traZODone 100 mg oral tablet) 1 tab(s) by mouth Daily at bedtime Pharmacy Information [facility]: [address] [place], [place] [phone] Please take this list to your next doctor s visit. Bring all medications you take, including over the counter medications, herbals and other supplements with you to your doctor s visit. Patients and families are reminded to discard old lists and to update any records with all medication providers or retail pharmacies. Education Materials Clostridioides Difficile Infection Clostridioides difficile, or C. diff, infection is caused by germs (bacteria). It causes irritationand swelling of the colon (colitis). This infection can spread from person to person (is contagious). You may also get C. diff from foodor water, or from touching surfaces that have the germs on them. What are the causes? Certain germs live in the colon and help to digest food. This infection starts when the balance of helpful germs in the colon changes, and the C. diff germs grow out of control. This is caused by taking antibiotics. What increases the risk? Your risk is higher if you: Take certain antibiotics that kill many types of germs. Take antibiotics for a long time. Stay for a long time in a health care setting, such as: ? A hospital. ? A long-term care facility. Are older than age 65. Your risk is somewhat higher if you: Have had C. diff infection before or had contact with C. diff germs. Have a weak body defense system (immune system). Take a medicine for a long time that reduces stomach acid. This includes proton pump inhibitors. Have serious health problems, such as: ? Colon cancer. ? Inflammatory bowel disease (IBD). Have had a procedure or surgery on your gastrointestinal (GI) tract. Some people develop C. diff even though they are not clearly at risk. What are the signs or symptoms? Watery poop (diarrhea). Fever. Tiredness (fatigue). Loss of appetite. Nausea. Swelling, pain, cramping, or tenderness in your belly (abdomen). How is this treated? Stopping the antibiotics that you were taking when the C. diff infection began. Do this only as told by your doctor. Taking certain antibiotics to stop C. diff from growing. Taking donor poop (stool) from a healthy person and placing it into the colon. This may be done if the infection keeps coming back. Having surgery to remove the infected part of the colon. This is rare. Follow these instructions at home: Medicines Take jtpk-ujq-yxdydtf and prescription medicines only as told by your doctor. Take your antibiotic medicine as told by your doctor. Do not stop taking the antibiotic even if youstart to feel better. Do not treat watery poop with medicines unless your doctor tells you to. Eating and drinking Follow instructions from your doctor about eating or drinking. Eat bland foods in small amounts as you are able. These foods include: ? Bananas. ? Applesauce. ? Rice. ? Low-fat (lean) meats. ? [place]. ? Crackers. Follow your doctor's instructions on how to get enough fluids into your body. You may need to: ? Drink clear fluids. This includes water, fruit juice you have added water to, or low-calorie sportsdrinks. ? Suck on ice chips. ? Take an ORS (oral rehydration solution). Avoid milk, caffeine, and alcohol. Drink enough fluid to keep your pee (urine) pale yellow. Activity Rest as told by your doctor. Return to your normal activities as told by your doctor. Ask your doctor what activities are safe for you. General instructions Wash your hands often with soap and water. Do this for at least 20 seconds. Bathe using soap and water daily. Be sure your home is clean before you leave the hospital or clinic to go home. Continue daily cleaning for at least a week after going home. Keep all follow-up visits as told by your doctor. This is important. How is this prevented? Hand hygiene Wash your hands well before you cook and after you use the bathroom. Use soap and water for at least 20 seconds. Make sure that people who live with you also wash their hands often. If you are being treated at a hospital or clinic, make sure that: ? All doctors and nurses wash their hands with soap and water before touching you. ? All visitors wash their hands with soap and water before touching you. Contact precautions If you get watery poop while you are in the hospital or a long-term care facility, let your doctor know right away. When you visit someone in the hospital or a long-term care facility, follow the rules for wearing agown, gloves, or other protective equipment. If possible, avoid contact with people who have watery poop. If you are sick and live with other people, use a separate bathroom, if you can. Clean environment Clean surfaces that are touched often every day. Use a product that has chlorine bleach in it. The bleach should be 10% solution. Be sure to: ? Read the instructions to find out if the product you are using will work on what you are cleaning. ? Clean toilets, bathtubs, sinks, door knobs, and work surfaces. If you are in the hospital, make sure that the staff cleans the surfaces in your room each day. Tell someone right away if body fluids have splashed or spilled. Washing clothes and linens Use laundry soap that has chlorine bleach in it to wash clothes and linens. Be sure to: ? Use powder soap instead of liquid. ? Run your washing machine on the hot setting with nothing but soap in it. Do this once a month. Contact a doctor if: Your symptoms do not get better or they get worse. Your symptoms go away and then come back. You have a fever. You have new symptoms. Get help right away if: You have more pain or tenderness in your belly. Your poop is mostly bloody. Your poop looks dark black and tarry. You cannot eat or drink without vomiting. You have signs of not having enough fluids in your body. These include: ? Dark pee, very little pee, or no pee. ? Cracked lips or dry mouth. ? No tears when you cry. ? Sunken eyes. ? Feeling sleepy. ? Feeling weak or dizzy. Summary C. diff infection may happen after taking antibiotic medicines. Symptoms include watery poop, fever, tiredness, loss of appetite, nausea, and belly problems. Treatment starts with stopping the antibiotics you were using when the infection began. Certain antibiotics are then used to stop C. diff from growing. This infection is sometimes treated by placing donor poop into the colon or doing surgery. Washing hands and cleaning every day can help keep C. diff from spreading. This information is not intended to replace advice given to you by your health care provider. Make sure you discuss any questions you have with your health care provider. Document Released: 03/12/2010 Document Revised: 10/09/2019 Document Reviewed: 10/09/2019 [employer] Patient Education 2020 [employer] Additional Information VACCINATE! IT SAVES LIVES! Members of the community who have not yet received the COVID-19 vaccine and would like to receive it can visit one of [facility] vaccine clinics. There are many vaccine clinic locations within the [facility]. For locations and available times, please visit [email or web address] It is important to note that some COVID mobile vaccine clinics are held outdoors and may be canceled in rainy or stormy conditions. To learn more about pediatric vaccinations (ages 5-11), we invite you to visit the [facility] webpage. [email or web address] learn more about the COVID-19 vaccine, we invite you to visit the CDC website for a list of frequently asked questions.https://www.cdc.gov/coronavirus/2019-ncov/vaccines/faq.html [employer] Patient Portal Access Instructions: Stay connected with your healthcare team and access your personal medical information anytime with the [employer] Patient Portal. Please follow the directions below to create your [employer] account: 1.Access the email account you provided upon registration to the hospital/physician office.2.Look for an invitation email from [facility].3.Open the email and access the invitation link: AcceptInvitation to [facility].4.Fill in the required hartley to create your account. To access your account, visit The [employer]One[employer]. Click the blue button labeled Access Patient Portal and then log in with the username and password that you created in the steps above. You will be able to view your test results, lab results, a summary of your visits, upcoming appointments and more. There is also a convenient messaging option where you can send secure messages to your p rovider. In addition, you will have the ability to download any documents or summaries to your computer and/or send the information securely to a physician. Remember that your healthcare information is confidential, so carefully consider who you will allowto register on the [employer] Patient Portal for access to your information. You can also access the [facility] Patient Portal on the [employer].iowhere robert. Simply click on Patient Portal and then log into your account. If you would like to receive a full copy of your medical records, please contact the [facility] Medical Records Department by calling [phone], Monday through Monday between 8 a.m. and 4:30 p.m. HOW TO SAFELY DISPOSE OF PRESCRIPTION MEDICATIONS Please use one of the following methods to safely dispose of your unused medications. 1.Use a drug disposal kit: the drug disposal pouch allows you to safely discard your old and unuseddrugs. Ask your nurse to give you one when you are discharged.2.Visit a local take-back location: Many local pharmacies and police departments have programs that collect old and unwanted prescriptiondrugs. Call your local pharmacy or go to http://i[employer] [email or web address]/8F1Kh4y to find one close to you.3.Make use of household items: Use cat litter or old coffee grounds to dispose medications if other options arenot available. Mix your drugs with these household products, seal them in an airtight container andthrow it into the garbage. Call [facility]: [phone] to be sure your drugs can be disposed of in this way. Some medicines may require a different approach.4.Never flush your medications down the toilet. IF YOU HAVE BEEN PRESCRIBED AN OPIOID FOR PAIN If you have been prescribed an opioid (such as hydrocodone, oxycodone or morphine), it is critical to understand the possible side effects and risks of opioid pain medications. Even when taken as directed, opioids can have several side effects including: Tolerance, meaning you might need to take more of a medication for the same pain relief. Nausea, vomiting and/or constipation. Sleepiness, dizziness, dry mouth, confusion, depression or itching. Physical dependence, meaning you have withdrawal symptoms when a medication is stopped, can develop within a few days. KNOW YOUR RESPONSIBILITIES It is important to know exactly how much and how often to take the opioid pain medications you are prescribed. Never take opioids in higher amounts or more often than prescribed. Do not combine opioids with alcohol or other drugs that cause drowsiness, such as benzodiazepines, also known as benzos, including diazepam and alprazolam, muscle relaxants or sleep aids. Never sell or share prescription opioids. This is illegal. Store opioids in a secure place and out of reach of others (including children, family, friends and visitors). The last page of this document has been signed and retained as a CHART COPY. Signatures Patient Education Materials Clostridioides Difficile Infection, Bfsr-by-Cdrd Medication Leaflets My discharge plan and instructions have been reviewed and explained to me and I,DEBBY BAILONd my current condition and have read and understand these discharge instructions. I have received a written copy of the plan/instructions. If I have questions, I am aware that I should contact my doctor. 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 The following is importantdischarge information regarding your hospital visit. Your Care Team WILL BRANNON MD What to do next Follow Up Appointments Follow Up with WILL BRANNON MD When:Within 1-2 days Where:[address] [place] [address]- Additional Information: Please call the office to schedule a follow-up appointment. Follow Up with KRISTINE MOON MD Where:[address] [facility] [place] [phone] Additional Information: Follow-up in 1 to 2 weeks The Following Activity and Diet Have Been Ordered for You Discharge Activity - Ordered -- Resume your pre-hospitalization activity, 11/22/23 10:53:00 EDT Discharge Diet - Ordered -- Type of Diet: Regular, 11/22/23 10:53:00 EDT The Following Equipment Has Been Ordered for You No qualifying data available. The Following Treatments Have Been Ordered for You Discharge Labs No qualifying data available. Discharge Radiology No qualifying data available. Other Therapies Discharge Event Monitor Instructions - Ordered -- 11/18/23 15:19:49 EDT, You have been ordered mobile outpatient telemetry. You should receive a device in the mail with further instructions. If you have not received a device within 7 days after discharge, please call [facility] at [phone]. Discharge Event Monitor Instructions - Ordered -- 11/22/23 14:40:45 EDT, You have been ordered mobile outpatient telemetry. You should receive a device in the mail with further instructions. If you have not received a device within 7 days after discharge, please call [facility] at [phone]. Post Acute Orders No qualifying data available. Someone Will Contact You Regarding These Home Health Referrals No home referrals have been ordered for you. No one will call you. Allergies Mushrooms(Severe) Throat swelling Peanuts(Severe) Throat swelling Rocephin(Severe) Hives cephalosporins(Severe) Anaphylaxis, Hives gabapentin (Moderate) psychotic breakdown Latex (Mild) Hives contrast media (gadolinium-based) penicillin Unknown vancomycin Medications Please ask your primary doctor or pharmacist before taking any other medication not listed, including over the counter drugs, herbal medications, vitamins and or supplements as they may interact withyour home medications. What How Much When Instructions Last Dose New apixaban (Eliquis 5 mg oral tablet) 1 tab(s) by mouth Two (2) times a day Pickup at [facility] New sulfamethoxazole-trimethoprim (Bactrim DS 800 mg-160 mg oral tablet) 1 tab(s) by mouth Two (2) times a day Duration: 2 Days Pickup at [facility] New vancomycin (vancomycin 25 mg/ mL ORAL solution) 5 Milliliter by mouth Four (4) times a day Duration: 14 Days Pickup at [facility] Unchanged atorvastatin (atorvastatin 80 mg oral tablet) 1 tab(s) by mouth Every day Unchanged DME (DME MISCellaneous) See instructions Sterile water, 40 syringes, 40 needles, alchohol swabs. Unchanged DULoxetine (Cymbalta 30 mg oral delayed release capsule) 1 cap by mouth Once a day Unchanged furosemide (Lasix 20 mg oral tablet) 2 tab(s) by mouth Once a day (in the morning) Unchanged furosemide (Lasix 20 mg oral tablet) 1 tab(s) by mouth Once a day (in the evening) Unchanged insulin aspart (Novolog) (Fiasp FlexTouch 100 units/ mL injectable solution) See instructions Sliding scale TIDAC Unchanged insulin glargine (Lantus 100 units/ mL10 ml vial solution) 33 unit(s) Subcutaneous Daily at bedtime Unchanged lisinopril (lisinopril 2.5 mg oral tablet) 1 tab(s) by mouth Once a day Unchanged oxybutynin (oxybutynin 15 mg/ 24 hr oral tablet, extended release) 1 tab(s) by mouth Once a day (in the evening) Unchanged pregabalin (pregabalin 75 mg oral capsule) 1 cap by mouth Two (2) times a day Unchanged propranolol (propranolol 20 mg oral tablet) 0.5 tab(s) by mouth Two (2) times a day Unchanged traZODone (traZODone 100 mg oral tablet) 1 tab(s) by mouth Daily at bedtime Pharmacy Information [facility]: [address] [place], [place] [phone] Please take this list to your next doctor s visit. Bring all medications you take, including over the counter medications, herbals and other supplements with you to your doctor s visit. Patients and families are reminded to discard old lists and to update any records with all medication providers or retail pharmacies. Education Materials Clostridioides Difficile Infection Clostridioides difficile, or C. diff, infection is caused by germs (bacteria). It causes irritationand swelling of the colon (colitis). This infection can spread from person to person (is contagious). You may also get C. diff from foodor water, or from touching surfaces that have the germs on them. What are the causes? Certain germs live in the colon and help to digest food. This infection starts when the balance of helpful germs in the colon changes, and the C. diff germs grow out of control. This is caused by taking antibiotics. What increases the risk? Your risk is higher if you: Take certain antibiotics that kill many types of germs. Take antibiotics for a long time. Stay for a long time in a health care setting, such as: ? A hospital. ? A long-term care facility. Are older than age 65. Your risk is somewhat higher if you: Have had C. diff infection before or had contact with C. diff germs. Have a weak body defense system (immune system). Take a medicine for a long time that reduces stomach acid. This includes proton pump inhibitors. Have serious health problems, such as: ? Colon cancer. ? Inflammatory bowel disease (IBD). Have had a procedure or surgery on your gastrointestinal (GI) tract. Some people develop C. diff even though they are not clearly at risk. What are the signs or symptoms? Watery poop (diarrhea). Fever. Tiredness (fatigue). Loss of appetite. Nausea. Swelling, pain, cramping, or tenderness in your belly (abdomen). How is this treated? Stopping the antibiotics that you were taking when the C. diff infection began. Do this only as told by your doctor. Taking certain antibiotics to stop C. diff from growing. Taking donor poop (stool) from a healthy person and placing it into the colon. This may be done if the infection keeps coming back. Having surgery to remove the infected part of the colon. This is rare. Follow these instructions at home: Medicines Take gcdd-tir-byhgzxr and prescription medicines only as told by your doctor. Take your antibiotic medicine as told by your doctor. Do not stop taking the antibiotic even if youstart to feel better. Do not treat watery poop with medicines unless your doctor tells you to. Eating and drinking Follow instructions from your doctor about eating or drinking. Eat bland foods in small amounts as you are able. These foods include: ? Bananas. ? Applesauce. ? Rice. ? Low-fat (lean) meats. ? [place]. ? Crackers. Follow your doctor's instructions on how to get enough fluids into your body. You may need to: ? Drink clear fluids. This includes water, fruit juice you have added water to, or low-calorie sportsdrinks. ? Suck on ice chips. ? Take an ORS (oral rehydration solution). Avoid milk, caffeine, and alcohol. Drink enough fluid to keep your pee (urine) pale yellow. Activity Rest as told by your doctor. Return to your normal activities as told by your doctor. Ask your doctor what activities are safe for you. General instructions Wash your hands often with soap and water. Do this for at least 20 seconds. Bathe using soap and water daily. Be sure your home is clean before you leave the hospital or clinic to go home. Continue daily cleaning for at least a week after going home. Keep all follow-up visits as told by your doctor. This is important. How is this prevented? Hand hygiene Wash your hands well before you cook and after you use the bathroom. Use soap and water for at least 20 seconds. Make sure that people who live with you also wash their hands often. If you are being treated at a hospital or clinic, make sure that: ? All doctors and nurses wash their hands with soap and water before touching you. ? All visitors wash their hands with soap and water before touching you. Contact precautions If you get watery poop while you are in the hospital or a long-term care facility, let your doctor know right away. When you visit someone in the hospital or a long-term care facility, follow the rules for wearing [place], gloves, or other protective equipment. If possible, avoid contact with people who have watery poop. If you are sick and live with other people, use a separate bathroom, if you can. Clean environment Clean surfaces that are touched often every day. Use a product that has chlorine bleach in it. The bleach should be 10% solution. Be sure to: ? Read the instructions to find out if the product you are using will work on what you are cleaning. ? Clean toilets, bathtubs, sinks, door knobs, and work surfaces. If you are in the hospital, make sure that the staff cleans the surfaces in your room each day. Tell someone right away if body fluids have splashed or spilled. Washing clothes and linens Use laundry soap that has chlorine bleach in it to wash clothes and linens. Be sure to: ? Use powder soap instead of liquid. ? Run your washing machine on the hot setting with nothing but soap in it. Do this once a month. Contact a doctor if: Your symptoms do not get better or they get worse. Your symptoms go away and then come back. You have a fever. You have new symptoms. Get help right away if: You have more pain or tenderness in your belly. Your poop is mostly bloody. Your poop looks dark black and tarry. You cannot eat or drink without vomiting. You have signs of not having enough fluids in your body. These include: ? Dark pee, very little pee, or no pee. ? Cracked lips or dry mouth. ? No tears when you cry. ? Sunken eyes. ? Feeling sleepy. ? Feeling weak or dizzy. Summary C. diff infection may happen after taking antibiotic medicines. Symptoms include watery poop, fever, tiredness, loss of appetite, nausea, and belly problems. Treatment starts with stopping the antibiotics you were using when the infection began. Certain antibiotics are then used to stop C. diff from growing. This infection is sometimes treated by placing donor poop into the colon or doing surgery. Washing hands and cleaning every day can help keep C. diff from spreading. This information is not intended to replace advice given to you by your health care provider. Make sure you discuss any questions you have with your health care provider. Document Released: 03/12/2010 Document Revised: 10/09/2019 Document Reviewed: 10/09/2019 [employer] Patient Education 2020 [employer] Additional Information VACCINATE! IT SAVES LIVES! Members of the community who have not yet received the COVID-19 vaccine and would like to receive it can visit one of [facility] vaccine clinics. There are many vaccine clinic locations within the [facility]. For locations and available times, please visit [email or web address] It is important to note that some COVID mobile vaccine clinics are held outdoors and may be canceled in rainy or stormy conditions. To learn more about pediatric vaccinations (ages 5-11), we invite you to visit the [facility] webpage. [email or web address] learn more about the COVID-19 vaccine, we invite you to visit the CDC website for a list of frequently asked questions.https://www.cdc.gov/coronavirus/2019-ncov/vaccines/faq.html [employer] Patient Portal Access Instructions: Stay connected with your healthcare team and access your personal medical information anytime with the [employer] Patient Portal. Please follow the directions below to create your [employer] account: 1.Access the email account you provided upon registration to the hospital/physician office.2.Look for an invitation email from [facility].3.Open the email and access the invitation link: AcceptInvitation to [employer].4.Fill in the required hartley to create your account. To access your account, visit [employer]. Click the blue button labeled Access Patient Portal and then log in with the username and password that you created in the steps above. You will be able to view your test results, lab results, a summary of your visits, upcoming appointments and more. There is also a convenient messaging option where you can send secure messages to your p rovider. In addition, you will have the ability to download any documents or summaries to your computer and/or send the information securely to a physician. Remember that your healthcare information is confidential, so carefully consider who you will allowto register on the [facility] Patient Portal for access to your information. You can also access the [facility] Patient Portal on the [facility]bert. Simply click on Patient Portal and then log into your account. If you would like to receive a full copy of your medical records, please contact the [facility] Medical Records Department by calling [phone], Monday through Monday between 8 a.m. and 4:30 p.m. HOW TO SAFELY DISPOSE OF PRESCRIPTION MEDICATIONS Please use one of the following methods to safely dispose of your unused medications. 1.Use a drug disposal kit: the drug disposal pouch allows you to safely discard your old and unuseddrugs. Ask your nurse to give you one when you are discharged.2.Visit a local take-back location: Many local pharmacies and police departments have programs that collect old and unwanted prescriptiondrugs. Call your local pharmacy or go to http://[email or web address]/1A0Cp4o to find one close to you.3.Make use of household items: Use cat litter or old coffee grounds to dispose medications if other options arenot available. Mix your drugs with these household products, seal them in an airtight container andthrow it into the garbage. Call [facility]: [phone] to be sure your drugs can be disposed of in this way. Some medicines may require a different approach.4.Never flush your medications down the toilet. IF YOU HAVE BEEN PRESCRIBED AN OPIOID FOR PAIN If you have been prescribed an opioid (such as hydrocodone, oxycodone or morphine), it is critical to understand the possible side effects and risks of opioid pain medications. Even when taken as directed, opioids can have several side effects including: Tolerance, meaning you might need to take more of a medication for the same pain relief. Nausea, vomiting and/or constipation. Sleepiness, dizziness, dry mouth, confusion, depression or itching. Physical dependence, meaning you have withdrawal symptoms when a medication is stopped, can develop within a few days. KNOW YOUR RESPONSIBILITIES It is important to know exactly how much and how often to take the opioid pain medications you are prescribed. Never take opioids in higher amounts or more often than prescribed. Do not combine opioids with alcohol or other drugs that cause drowsiness, such as benzodiazepines, also known as benzos, including diazepam and alprazolam, muscle relaxants or sleep aids. Never sell or share prescription opioids. This is illegal. Store opioids in a secure place and out of reach of others (including children, family, friends and visitors). The last page of this document has been signed and retained as a CHART COPY. Signatures Patient Education Materials Clostridioides Difficile Infection, [id number] Medication Leaflets My discharge plan and instructions have been reviewed and explained to me and I,DEBBY BAILONd my current condition and have read and understand these discharge instructions. I have received a written copy of the plan/instructions. If I have questions, I am aware that I should contact my doctor. 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 Sepsis present on admission due to complicated UTI and pyelonephritis. 2. Left-sided pyelonephritis. 3. Neurogenic bladder with a chronic suprapubic catheter. 4. Splenic infarct, on Eliquis. 5. Diarrhea resolved 6. Diabetes mellitus type 2. 7. Neurogenic bowel status post colostomy. 8. Paroxysmal SVT on propranolol. 9. Chronic edema of the lower extremities 10. Complicated UTI secondary to device/suprapubic catheter Sepsis, unspecified organism (A41.9 - ICD-10-CM) Body mass index [BMI] 45.0-49.9, adult (Z68.42 - ICD-10-CM) Urinary tract infection, site not specified (N39.0 - ICD-10-CM) Cervical spina bifida without hydrocephalus (Q05.5 - ICD-10-CM) Hyperlipidemia, unspecified (E78.5 - ICD-10-CM) Essential (primary) hypertension (I10 - ICD-10-CM) Type 2 diabetes mellitus with diabetic neuropathy, unspecified (E11.40 - ICD-10-CM) Depression, unspecified (F32.A - ICD-10-CM) Anxiety disorder, unspecified (F41.9 - ICD-10-CM) Polyneuropathy, unspecified (G62.9 - ICD-10-CM) Obesity, unspecified (E66.9 - ICD-10-CM) 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 - ICD-10-CM) Additional Orders: Other status: BMP,11/22/23 5:00:00 EDT, Next AM Draw (one day only), Blood, Once, Stop date 11/22/23 5:00:00 EDT(Complete) Ordered: Bactrim DS 800 mg-160 mg oral tablet,Dose = 1 tab(s), Oral, BID, X 2 day(s), # 4 tab(s), 0Refill(s), Pharmacy: [facility], 155, cm, 11/18/23 9:54:00 EDT, Height, 108.4, kg, 11/18/23 9:54:00 EDT, Dosing Weight Other status: CBC,11/22/23 5:00:00 EDT, Next AM Draw (one day only), Blood, Once, Stop date 11/22/23 5:00:00 EDT(Complete) Ordered: Discharge,11/22/23 10:53:00 EDT, Discharged to: Home Ordered: Discharge Activity,Resume your pre-hospitalization activity, 11/22/23 10:53:00 EDT Ordered: Discharge Diet,Type of Diet: Regular, 11/22/23 10:53:00 EDT Ordered: Eliquis 5 mg oral tablet,Dose : 5 mg = 1 tab(s), Oral, BID, # 60 tab(s), 0 Refill(s), Pharmacy: [facility], 155, cm, 11/18/23 9:54:00 EDT, Height, 108.4, kg, 11/18/23 9:54:00EDT, Dosing Weight Ordered: vancomycin 25 mg/mL ORAL solution,Dose : 125 mg = 5 mL, Oral, QID, X 14 day(s), # 280 mL, 0 Refill(s), 12/06/23 10:52:00 EDT, Pharmacy: [facility], 155, cm, 11/18/23 9:54:00 EDT, Height, 108.4, kg, 11/18/23 9:54:00 EDT, Dosing Weight Hospital Course 83-year-old female with multiple medical problems listed above, presented to the hospital with sepsis secondary to UTI, and splenic infarct patient was seen by urology team, suprapubic catheter was exchanged on 11/19/2023, patient was started on broad-spectrum antibiotics due to the history of resistant UTI in the past. Hematology oncology was consulted for splenic infarct, patient was started onheparin drip, transition to oral Eliquis. Echocardiogram was done and it was unremarkable Urology recommended outpatient follow-up, hematology oncology recommended outpatient follow-up as well, ID team gave recommendations regarding the urine infection treatment with Bactrim DS, and also since the patient tested positive for C. difficile antigen oral vancomycin was prescribed for 14 days During the hospital stay patient was showing improvements regarding her condition, she was examinedand evaluated by me today she was awake alert and oriented x 3, denying any chest pain abdominal pain nausea or vomiting, no headache lightheadedness or dizziness, patient was tolerating diet fairly well patient will be discharged Home today, all her questions were answered, all concerns were addressed Allergies Mushrooms(Severe) Throat swelling Peanuts(Severe) Throat swelling Rocephin(Severe) Hives cephalosporins(Severe) Anaphylaxis, Hives gabapentin (Moderate) psychotic breakdown Latex (Mild) Hives contrast media (gadolinium-based) penicillin Unknown vancomycin Procedures Suprapubic catheter exchange 11/19/2023 Consults Consult to Physician - Ordered -- 11/18/23 11:41:00 EDT, JOHAN GERMAN MD, Routine, Patient with left-sided pyelonephritis, complicated UTI Consult to Physician - Ordered -- 11/18/23 11:41:00 EDT, ARACELI KIDD DO, Routine, Patient with suprapubic catheter with purulent drainage, left-sided pyelonephritis, please evaluate for suprapubic catheter exchange Consult to Physician - Ordered -- 11/18/23 11:42:00 EDT, KRISTINE MOON MD, Routine, Patient with splenic infarcts. Imaging Results and Diagnostics Please see Cerner Objective Vitals and Measurements T: 36.7 C (Oral) TMIN: 36.7 C (Oral) TMAX: 36.9 C (Oral) HR: 87 (Monitored) RR: 16 BP: 98/65 SpO2: 96% WT: 106.7 kg Weight Current Weight Dosing Weight: 108.4 kg (11/18/23) Current Weight: 106.7 kg (11/22/23) Current Weight: 109.8 kg (11/22/23) Head: atraumatic normocephalic Neck: supple no JVD Lungs: clear to auscultation bilaterally, no wheezes no accessory muscle use. Heart: S1-S2 regular rate and rhythm, no murmurs Abdomen: soft nontender nondistended, bowel sounds are present all 4 quadrants ostomy is in place, suprapubic catheter is in place as well Lower extremities: no cyanosis, no chronic skin changes, pulse palpable +1 bilaterally, no edema Skin: showed no rash Neurological: patient is awake alert and oriented 3, no focal neurological deficit. Pending Labs and Studies None Code Status Code Status - Ordered -- 11/18/23 10:43:00 EDT, Full Code, Constant Order Admission Date 11/18/2023 Discharge Date 11/22/2023 Medications New Prescription apixaban (Eliquis 5 mg oral tablet)1 tab(s) by mouth two (2) times a day. Refills: 0. sulfamethoxazole-trimethoprim (Bactrim DS 800 mg-160 mg oral tablet)1 tab(s) by mouth two (2) timesa day for 2 Days. Refills: 0. vancomycin (vancomycin 25 mg/mL ORAL solution)5 Milliliter by mouth four (4) times a day for 14 Days. Refills: 0. Unchanged atorvastatin (atorvastatin 80 mg oral tablet)1 tab(s) by mouth every day. DME (DME MISCellaneous)Sterile water, 40 syringes, 40 needles, alchohol swabs.. Refills: 0. DULoxetine (Cymbalta 30 mg oral delayed release capsule)1 cap by mouth once a day. furosemide (Lasix 20 mg oral tablet)2 tab(s) by mouth once a day (in the morning). furosemide (Lasix 20 mg oral tablet)1 tab(s) by mouth once a day (in the evening). insulin aspart (Novolog) (Fiasp FlexTouch 100 units/mL injectable solution)Sliding scale TIDAC. insulin glargine (Lantus 100 units/mL10 ml vial solution)33 unit(s) Subcutaneous daily at bedtime. lisinopril (lisinopril 2.5 mg oral tablet)1 tab(s) by mouth once a day. oxybutynin (oxybutynin 15 mg/24 hr oral tablet, extended release)1 tab(s) by mouth once a day (in the evening). pregabalin (pregabalin 75 mg oral capsule)1 cap by mouth two (2) times a day. propranolol (propranolol 20 mg oral tablet)0.5 tab(s) by mouth two (2) times a day. traZODone (traZODone 100 mg oral tablet)1 tab(s) by mouth daily at bedtime. Follow Up Follow Up with WILL BRANNON MD When:Within 1-2 days Where:[address] [place] [address]- Additional Information: Please call the office to schedule a follow-up appointment. Follow Up with KRISTINE MOON MD Where:[address] [facility] [place] [address]- [phone] Additional Information: Follow-up in 1 to 2 weeks Follow Up Appointments No qualifying data available. Follow Up Labs/Studies Discharge Labs No Follow-up Labs Discharge Studies No Follow-up Studies Discharge Diet Discharge Diet - Ordered -- Type of Diet: Regular, 11/22/23 10:53:00 EDT Discharge Activity Discharge Activity - Ordered -- Resume your pre-hospitalization activity, 11/22/23 10:53:00 EDT Condition on Discharge Stable Readmission Risk/Palliative Score LACE Score: 14 (11/20/23 10:36:00) Palliative Total Score: 1 (11/20/23 10:36:00) Discharge Disposition Home Time Spent 25 minutes Digitally Signed by CARLEY SYKES MD on 11/22/2023 01:50 PM Digitally Signed by CARLEY SYKES MD on 11/22/2023 04:20 PM [id number] Infectious disease Progress note Microdata reviewed, stool for C. difficile are positive We added oral vancomycin Will stop Levaquin and transition to 3 more days of oral Bactrim Plan on 14 days of oral vancomycin and follow with me as needed Please call for questions or concerns Digitally Signed by JORGE LAGOS BA, MD on 11/22/2023 12:17 PM [facility] [id number] Hematology Progress note Subjective Improving abdominal pain Patient was able to. 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 Respiratory: No breathing difficulty Weight Current Weight Dosing Weight: 108.4 kg (11/18/23) Current Weight: 108.6 kg (11/21/23) Current Weight: 112.4 kg (11/19/23) Medications Medications (18) Active Scheduled: (12) apixaban 5 mg tablet 5 mg 1 tab(s), Oral, BID atorvastatin 80 mg tablet 80 mg 1 tab(s), Oral, Daily duloxetine [address] capsule 30 mg 1 cap(s), Oral, qDay furosemide 20 mg tablet 20 mg 1 tab(s), Oral, qPM furosemide 40 mg tablet 40 mg 1 tab(s), Oral, qAM insulin glargine 33 unit(s) 0.33 mL, Subcutaneous (INT), qHS insulin lispro 100 units/mL Soln (3 mL) Give 0-15 units/dose, Subcutaneous, TIDAC levofloxacin 750 mg tablet 750 mg 1 tab(s), Oral, q24h oxybutynin 5 mg ER tablet 15 mg 3 tab(s), Oral, qPM pregabalin 75 mg capsule 75 mg 1 cap(s), Oral, BID propranolol 10 mg tablet 10 mg 1 tab(s), Oral, BID traZODONE 100 mg Tablet 100 mg 1 tab(s), Oral, qHS Continuous: (0) PRN: (6) acetaminophen 325 mg Tablet 650 mg 2 tab(s), Oral, q4h acetaminophen 325 mg Tablet 650 mg 2 tab(s), Oral, q4h acetaminophen-OXYcodone 325 mg-5 mg Tablet 1 tab(s), Oral, q4h dextrose 50% Solution Disp syringe 50 mL 12.5 gram(s) 25 mL, IV Push, AsDirected morphine 4 mg/mL 1mL INJ 3 mg 0.75 mL, IV Push, q4h ondansetron 2 mg/ 1 mL 2 mL INJ 4 mg 2 mL, IV Push, q4h Lab Results 11/20 04:18 WBC: 9.7 Hgb: 11.5 L Hct: 34.1 Platelet: 165 Glucose Level: 103 Sodium Level: 140 Potassium Level: 3.9 BUN: 7.0 L Creatinine Lvl (s): 0.72 EKG No qualifying data available. Assessment/Plan Patient has spina bifida She has colostomy due to disease complications Also required suprapubic bladder catheter related to the disease She is being treated for urinary tract infection and pyelonephritis. Patient had pain in the upper abdomen 11/18/2023: CT of abdomen and pelvis were done Splenic infarcts were seen Patient was started on heparin followed by apixaban Pain was about 20 to 30% improved Denied any bleeding problems There is no family history of clotting problems. D-dimer 3711 Patient reported improvement in the upper abdominal pain No bleeding She tolerated apixaban 5 mg every 12 hours Digitally Signed by LOI LINDSAY MD on 11/21/2023 10:16 PM [facility] [id number] Infectious disease Progress note Date of Service 11/21/2023 Objective Vitals and Measurements T: 37.1 C (Oral) TMIN: 36.8 C (Oral) TMAX: 37.5 C (Oral) HR: 70 (Monitored) RR: 18 BP: 102/69 SpO2:93% WT: 108.6 kg Physical Exam Chart reviewed, patient examined. Patient is alert and oriented x3, rather flat in affect but FSC, resting in bed watching TV. No c/o VD, reports ostomy output has been minimal to none since Monday but continues to report she is having gas to her ostomy bag. Reports intermittent nausea with improvement as she is tolerating more PO intake. Reports intermittent SOB that increases with increased pain, reports occasional cough, reports mild chills overnight but denies sweats. Reports ongoing left sided flank/abdominal pain, unchanged. No other new complaints this AM. Respirations easy and nonlabored, 93% on RA. Tmax of 37.5 orally noted in the last 24 hours. Labs: CDIFF PCR pending collection Stool GI PCR pending collection FOCUSED ASSESSMENT: CVS: Regular S1S2 LUNGS: Clear diminished bilaterally, intermittent SOB-increased with pain, occasional cough, on RA ABDOMEN: Rounded, soft, generalized tenderness (> left side)-mild improvement, + bowel sounds, passing gas, ostomy in place, mild improvement in appetite/PO intake, decreased stool output SKIN: No rashes noted, Suprapubic Cook site RAFI-mildly pink/moist, diffuse ecchymosis, left heel DTI/purple coloring RAFI, umbilicus dry skin/pink in coloring RAFI INCISIONS/DRESSINGS: None EXTREMITIES: +2-3 BLE/pedal edema-improving per patient, history spina bifida, BLE numbness/tingling-chronic, left great toe partial amputation LINES/TUBES/DRAINS: RAC & LFA IV dressings dry & intact, no drainage or erythema at sites. Ostomy with no output noted to bag-patient does report having gas even with decreased output. Suprapubic Cook with small yellow output noted to tubing/bag. CURRENT ANTIBIOTICS: Meropenem 1g IV Q8h 11/16 - present CULTURE RESULTS/KURT: 11/16 Blood Cultures / no growth to date -P 11/16 Urine Culture -F >100,000 cfu/ml Multiple bacterial morphotypes present Probable Contamination 11/18 Urine Culture -F No growth at 48 hours Weight Current Weight Dosing Weight: 108.4 kg (11/18/23) Current Weight: 108.6 kg (11/21/23) Current Weight: 112.4 kg (11/19/23) Medications Medications (18) Active Scheduled: (12) apixaban 5 mg tablet 5 mg 1 tab(s), Oral, BID atorvastatin 80 mg tablet 80 mg 1 tab(s), Oral, Daily duloxetine [address] capsule 30 mg 1 cap(s), Oral, qDay furosemide 20 mg tablet 20 mg 1 tab(s), Oral, qPM furosemide 40 mg tablet 40 mg 1 tab(s), Oral, qAM insulin glargine 33 unit(s) 0.33 mL, Subcutaneous (INT), qHS insulin lispro 100 units/mL Soln (3 mL) Give 0-15 units/dose, Subcutaneous, TIDAC meropenem 1,000 mg, IV Piggyback, q8h oxybutynin 5 mg ER tablet 15 mg 3 tab(s), Oral, qPM pregabalin 75 mg capsule 75 mg 1 cap(s), Oral, BID propranolol 10 mg tablet 10 mg 1 tab(s), Oral, BID traZODONE 100 mg Tablet 100 mg 1 tab(s), Oral, qHS Continuous: (0) PRN: (6) acetaminophen 325 mg Tablet 650 mg 2 tab(s), Oral, q4h acetaminophen 325 mg Tablet 650 mg 2 tab(s), Oral, q4h acetaminophen-OXYcodone 325 mg-5 mg Tablet 1 tab(s), Oral, q4h dextrose 50% Solution Disp syringe 50 mL 12.5 gram(s) 25 mL, IV Push, AsDirected morphine 4 mg/mL 1mL INJ 3 mg 0.75 mL, IV Push, q4h ondansetron 2 mg/ 1 mL 2 mL INJ 4 mg 2 mL, IV Push, q4h Lab Results 11/20 04:18 WBC: 9.7 Hgb: 11.5 L Hct: 34.1 Platelet: 165 Glucose Level: 103 Sodium Level: 140 Potassium Level: 3.9 BUN: 7.0 L Creatinine Lvl (s): 0.72 11/19 04:45 WBC: 10.1 Hgb: 12.0 Hct: 35.9 Platelet: 160 Glucose Level: 133 H Sodium Level: 138 Potassium Level: 3.9 BUN: 6.0 L Creatinine Lvl (s): 0.76 Imaging Results and Diagnostics 11/19 TTE Summary: 1. Left ventricle: The cavity size is normal. Wall thickness is normal. Systolic function is normal. The estimated ejection fraction is 55-60%. Wall motion is normal; there are no regional wall motion abnormalities. Normal diastolic function. 2. Ventricular septum: Septal motion is paradoxical. 3. Right ventricle: The RV systolic pressure by Doppler is 27 mm Hg. 4. Right atrium: The estimated right atrial pressure is 3 mm Hg. 5. Atrial septum: A patent foramen ovale cannot be excluded. Recommendations: 11 mm mobile echodensity in RA (posteriorly) in A4C view. Differential include indwelling catheter, mass vs. thrombus. Corelate clinically. Consider further imaging (GABRIEL) if clinically warranted. 11/19 Venous Doppler BLE Summary: 1. Negative for deep vein thrombosis involving the right lower extremity. 2. Negative for deep vein thrombosis involving the left lower extremity. 3. Negative for superficial vein thrombosis involving the left lower extremity Problem List Complicated UTI Neurogenic bladder- has chronic SPT Spina bifida Left flank pain Splenic infarcts Digitally Signed by Alexia Jackson RN on 11/21/2023 09:56 AM [facility] [id number] Note Date of Service 11/21/23 Reason for Consultation Admission From: Home Ostomy & skin assessment Skin Team Findings Vitals and Measurements T: 37.1 C (Oral) TMIN: 36.8 C (Oral) TMAX: 37.5 C (Oral) HR: 70 (Monitored) RR: 18 BP: 102/69 SpO2: 93% WT: 108.6 kg Pressure Area Details ------Pressure Area------ No pressure injuries noted. ------Incision/Wound------ Heel Left Plantar - Incision, Wound Dressing/Activity: Open to air Heel Left Plantar - Incision, Wound Surrounding Tissue: Callus, Dry Heel Left Plantar - Incision, Wound Topical Agent: Ointment Heel Left Plantar - Non-Pressure Ulcer Type: Undiagnosed ulcer Heel Left Plantar - Skin Abnormality Color: Purple Heel Left Plantar - Skin Abnormality Pattern: Palpable Heel Left Plantar - Skin Abnormality Type: Non-pressure ulcer Heel Left Plantar - Wound Exudate Amount: None Heel Left Plantar - Wound Status: No complications ------Incision/Wound Measurements------ Heel Left Plantar - Incision, Wound Depth: 0.1 cm Heel Left Plantar - Incision, Wound Length: 1 cm Heel Left Plantar - Incision, Wound Width: 0.5 cm No complications with established ostomy. Assessments and Recommendations ------Assessments------ Current Skin/Wound Interventions: Hospital bed ------Recommendations------ Recommended Skin/Wound Interventions: Turn and reposition every 2 hours, Other: skin prep heels Additional Skin Team Comments: Sees DPM will follow up after discharge Established Colostomy, no issues caring for has own supplies. Education Individuals Taught: Patient Learning Readiness: Willing to learn Barriers to Learning: None evident Teaching Method: Explanation Problem List/Past Medical History Ongoing Diabetes Neurogenic bladder disorder Recurrent UTI (urinary tract infection) Spina bifida Type 2 diabetes mellitus Urinary tract infection Digitally Signed by VERNON Zhao on 11/21/2023 02:28 PM [facility] [id number] Note Subjective: Patient seen for sepsis, left-sided pyelonephritis patient was examined and evaluated today, patient denies chest pain, no shortness of breath, no cough, no fever or chills, no abdominal pain, no nausea or vomiting, no headache, tolerating po well, bowel movement is normal, feels weak tired and fatigue Vitals Signs(Last 24 hrs)__Last Charted Minimum Maximum Temp37.1(NOV 20 06:56)36.8(NOV 19 15:10)H 37.5(NOV 19 19:32) Heart Rate70(NOV 20 06:56)70(NOV 20 06:56)70(NOV 20 06:56) EYM726(NOV 20 06:56)L 76(NOV 19 15:10)116(NOV 19 22:26) DBP69(NOV 20 06:56)L 55(NOV 19 15:10)70(NOV 19 17:36) Physical examination: HEENT, is atraumatic normocephalic, pupils are equal, no pallor Neck supple no JVD Lungs clear to auscultation bilaterally, no wheezes, no rhonchi, no accessory muscle use Heart S1-S2 regular Abdomen soft nontender nondistended bowel sounds are present all 4 quadrants, colostomy is in place, suprapubic catheter was in place as well Lower extremities show chronic nonpitting edema, no cyanosis, pulses palpable +2 bilaterally Skin showed no rash Neurological examination patient is awake alert and oriented 3, cranial nerves are grossly intact, no focal neurological defect could be appreciated Assessment and plan: 1. Sepsis present on admission due to complicated UTI and pyelonephritis. 2. Left-sided pyelonephritis. 3. Neurogenic bladder with a chronic suprapubic catheter. 4. Splenic infarct, on Eliquis. 5. Diarrhea resolved 6. Diabetes mellitus type 2. 7. Neurogenic bowel status post colostomy. 8. Paroxysmal SVT on propranolol. 9. Chronic edema of the lower extremities Plan: 1. Continue with IV antibiotics and follow further recommendations from infectious disease team. 2. Continue with Eliquis. 3. Continue to monitor patient clinically as well as her labs 4. Venous Doppler of the lower extremities came back negative, these results were discussed with the patient, echocardiogram also was done and showed normal EF. Patient understood her plan of care all questions were answered, all concerns were addressed, she declined my offer to call her family stating that she will update the family by herself. Labs: Basic Metabolic Profile Glucose Level: 103 mg/dL (11/21/23 04:18:00) Sodium Level: 140 mEq/L (11/21/23 04:18:00) Potassium Level: 3.9 mEq/L (11/21/23 04:18:00) Chloride: 107 mEq/L (11/21/23 04:18:00) CO2: 25 mEq/L (11/21/23 04:18:00) BUN/Creatinine Ratio: 9.7 ratio Low (11/21/23 04:18:00) Complete Blood Count WBC: 9.7 10^3/mcL (11/21/23 04:18:00) RBC: 3.8 10^6/mcL Low (11/21/23 04:18:00) Hgb: 11.5 G/dL Low (11/21/23 04:18:00) Hct: 34.1 % (11/21/23 04:18:00) MCV: 89.9 fL (11/21/23 04:18:00) MCH: 30.3 pg (11/21/23 04:18:00) MCHC: 33.8 G/dL (11/21/23 04:18:00) RDW: 15.7 % High (11/21/23 04:18:00) Platelet: 165 10^3/mcL (11/21/23 04:18:00) MPV: 8.1 fL (11/21/23 04:18:00) Medications (18) Active Scheduled: (12) apixaban 5 mg tablet 5 mg 1 tab(s), Oral, BID atorvastatin 80 mg tablet 80 mg 1 tab(s), Oral, Daily duloxetine [address] capsule 30 mg 1 cap(s), Oral, qDay furosemide 20 mg tablet 20 mg 1 tab(s), Oral, qPM furosemide 40 mg tablet 40 mg 1 tab(s), Oral, qAM insulin glargine 33 unit(s) 0.33 mL, Subcutaneous (INT), qHS insulin lispro 100 units/mL Soln (3 mL) Give 0-15 units/dose, Subcutaneous, TIDAC meropenem 1,000 mg, IV Piggyback, q8h oxybutynin 5 mg ER tablet 15 mg 3 tab(s), Oral, qPM pregabalin 75 mg capsule 75 mg 1 cap(s), Oral, BID propranolol 10 mg tablet 10 mg 1 tab(s), Oral, BID traZODONE 100 mg Tablet 100 mg 1 tab(s), Oral, qHS Continuous: (0) PRN: (6) acetaminophen 325 mg Tablet 650 mg 2 tab(s), Oral, q4h acetaminophen 325 mg Tablet 650 mg 2 tab(s), Oral, q4h acetaminophen-OXYcodone 325 mg-5 mg Tablet 1 tab(s), Oral, q4h dextrose 50% Solution Disp syringe 50 mL 12.5 gram(s) 25 mL, IV Push, AsDirected morphine 4 mg/mL 1mL INJ 3 mg 0.75 mL, IV Push, q4h ondansetron 2 mg/ 1 mL 2 mL INJ 4 mg 2 mL, IV Push, q4h Signature: Carley Sykes MD Digitally Signed by CARLEY SYKES MD on 11/21/2023 04:09 PM [id number] Infectious disease Progress note Date of Service 11/21/2023 Objective Vitals and Measurements T: 37.1 C (Oral) TMIN: 36.8 C (Oral) TMAX: 37.5 C (Oral) HR: 70 (Monitored) RR: 18 BP: 102/69 SpO2:93% WT: 108.6 kg Physical Exam Chart reviewed, patient examined. Patient is alert and oriented x3, rather flat in affect but FSC, resting in bed watching TV. No c/o VD, reports ostomy output has been minimal to none since Monday but continues to report she is having gas to her ostomy bag. Reports intermittent nausea with improvement as she is tolerating more PO intake. Reports intermittent SOB that increases with increased pain, reports occasional cough, reports mild chills overnight but denies sweats. Reports ongoing left sided flank/abdominal pain, unchanged. No other new complaints this AM. Respirations easy and nonlabored, 93% on RA. Tmax of 37.5 orally noted in the last 24 hours. 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 Ostomy with no output noted to bag-patient does report having gas even with decreased output. Suprapubic Cook with small yellow output noted to tubing/bag. CURRENT ANTIBIOTICS: Meropenem 1g IV Q8h 11/16 - present CULTURE RESULTS/KURT: 11/16 Blood Cultures / no growth to date -P 11/16 Urine Culture -F >100,000 cfu/ml Multiple bacterial morphotypes present Probable Contamination 11/18 Urine Culture -F No growth at 48 hours Weight Current Weight Dosing Weight: 108.4 kg (11/18/23) Current Weight: 108.6 kg (11/21/23) Current Weight: 112.4 kg (11/19/23) Medications Medications (18) Active Scheduled: (12) apixaban 5 mg tablet 5 mg 1 tab(s), Oral, BID atorvastatin 80 mg tablet 80 mg 1 tab(s), Oral, Daily duloxetine [address] capsule 30 mg 1 cap(s), Oral, qDay furosemide 20 mg tablet 20 mg 1 tab(s), Oral, qPM furosemide 40 mg tablet 40 mg 1 tab(s), Oral, qAM insulin glargine 33 unit(s) 0.33 mL, Subcutaneous (INT), qHS insulin lispro 100 units/mL Soln (3 mL) Give 0-15 units/dose, Subcutaneous, TIDAC meropenem 1,000 mg, IV Piggyback, q8h oxybutynin 5 mg ER tablet 15 mg 3 tab(s), Oral, qPM pregabalin 75 mg capsule 75 mg 1 cap(s), Oral, BID propranolol 10 mg tablet 10 mg 1 tab(s), Oral, BID traZODONE 100 mg Tablet 100 mg 1 tab(s), Oral, qHS Continuous: (0) PRN: (6) acetaminophen 325 mg Tablet 650 mg 2 tab(s), Oral, q4h acetaminophen 325 mg Tablet 650 mg 2 tab(s), Oral, q4h acetaminophen-OXYcodone 325 mg-5 mg Tablet 1 tab(s), Oral, q4h dextrose 50% Solution Disp syringe 50 mL 12.5 gram(s) 25 mL, IV Push, AsDirected morphine 4 mg/mL 1mL INJ 3 mg 0.75 mL, IV Push, q4h ondansetron 2 mg/ 1 mL 2 mL INJ 4 mg 2 mL, IV Push, q4h Lab Results 11/20 04:18 WBC: 9.7 Hgb: 11.5 L Hct: 34.1 Platelet: 165 Glucose Level: 103 Sodium Level: 140 Potassium Level: 3.9 BUN: 7.0 L Creatinine Lvl (s): 0.72 11/19 04:45 WBC: 10.1 Hgb: 12.0 Hct: 35.9 Platelet: 160 Glucose Level: 133 H Sodium Level: 138 Potassium Level: 3.9 BUN: 6.0 L Creatinine Lvl (s): 0.76 Imaging Results and Diagnostics 11/19 TTE Summary: 1. Left ventricle: The cavity size is normal. Wall thickness is normal. Systolic function is normal. The estimated ejection fraction is 55-60%. Wall motion is normal; there are no regional wall motion abnormalities. Normal diastolic function. 2. Ventricular septum: Septal motion is paradoxical. 3. Right ventricle: The RV systolic pressure by Doppler is 27 mm Hg. 4. Right atrium: The estimated right atrial pressure is 3 mm Hg. 5. Atrial septum: A patent foramen ovale cannot be excluded. Recommendations: 11 mm mobile echodensity in RA (posteriorly) in A4C view. Differential include indwelling catheter, mass vs. thrombus. Corelate clinically. Consider further imaging (GABRIEL) if clinically warranted. 11/19 Venous Doppler BLE Summary: 1. Negative for deep vein thrombosis involving the right lower extremity. 2. Negative for deep vein thrombosis involving the left lower extremity. 3. Negative for superficial vein thrombosis involving the left lower extremity Problem List Complicated UTI Neurogenic bladder- has chronic SPT Spina bifida Left flank pain Splenic infarcts Digitally Signed by Alexia Jackson RN on 11/21/2023 09:56 AM [facility] [id number] Hematology Progress note Date of Service 11/20/2023 Chief Complaint Splenic Infarcts Subjective 43-year-old female with past medical history significant for spina bifida, HLD, HTN, type 2 diabetes mellitus neurogenic bladder s/p suprapubic catheter, neurogenic bowel s/p colostomy, anxiety/depression, paroxysmal SVT, BLE edema, cervical radiculopathy, neuropathy, obesity, chronic pain, insomnia, migraine, recurrent UTIs with Pseudomonas, fatty liver, cervical spinal stenosis, recent admission for at [facility] from 10/29/2013 11/02/2023 for UTI presented as a transfer from [facility] because of sepsis, UTI, splenic infarcts. On exam, she is resting comfortable, she reports she is feeling better and her flank pain is better. She denies CP and SOB. She is a nonsmoker. She denies a personal or family history of clotting disorders. Objective Vitals and Measurements T: 36.9 C (Oral) TMIN: 36.8 C (Oral) TMAX: 37.1 C (Oral) HR: 89 RR: 18 BP: 101/69 SpO2: 92% Intake and Output 7AM Yesterday to 7AM Today Intake and Output (Last 24 hours) Intake Administration Information 291.36 Oral Intake 1020.00 Output Urinary Catheter Output: 1650.00 Ostomy Stool Volume: 0.00 Emesis Count 0.00 Total Summary Total Intake 1311.36 Total Output 1650.00 Fluid Balance -338.64 Physical Exam General Appearance: Patient appears healthy, well-developed, not in any acute distress. Cardiac: Normal rate and rhythm, S1-S2 heard, no murmurs heard. Lungs: Clear on auscultation bilaterally, no wheezes or rales. Abdomen: Mild tenderness left flank area and positive CVA tenderness. Purulent drainage in suprapubic catheter, colostomy in place Extremities: No pedal edema. Neurological: Alert ,oriented, chronic leg weakness from spina bifida Skin: Warm and dry, no rash noted Weight Current Weight Dosing Weight: 108.4 kg (11/18/23) Current Weight: 112.4 kg (11/19/23) Medications Medications (19) Active Scheduled: (11) atorvastatin 80 mg tablet 80 mg 1 tab(s), Oral, Daily duloxetine [address] capsule 30 mg 1 cap(s), Oral, qDay furosemide 20 mg tablet 20 mg 1 tab(s), Oral, qPM furosemide 40 mg tablet 40 mg 1 tab(s), Oral, qAM insulin glargine 33 unit(s) 0.33 mL, Subcutaneous (INT), qHS insulin lispro 100 units/mL Soln (3 mL) Give 0-15 units/dose, Subcutaneous, TIDAC meropenem 1,000 mg, IV Piggyback, q8h oxybutynin 5 mg ER tablet 15 mg 3 tab(s), Oral, qPM pregabalin 75 mg capsule 75 mg 1 cap(s), Oral, BID propranolol 10 mg tablet 10 mg 1 tab(s), Oral, BID traZODONE 100 mg Tablet 100 mg 1 tab(s), Oral, qHS Continuous: (1) heparin 25,000 unit(s) [9.2 unit(s)/kg/hr] + Dextrose 5% Premix Diluent 250 mL 250 mL, Intravenous,9.97 mL/hr PRN: (7) acetaminophen 325 mg Tablet 650 mg 2 tab(s), Oral, q4h acetaminophen 325 mg Tablet 650 mg 2 tab(s), Oral, q4h acetaminophen-OXYcodone 325 mg-5 mg Tablet 1 tab(s), Oral, q4h dextrose 50% Solution Disp syringe 50 mL 12.5 gram(s) 25 mL, IV Push, AsDirected heparin 5,000 units/mL (1 mL) vial 4,000 unit(s) 0.8 mL, IV Push, q6h morphine 4 mg/mL 1mL INJ 3 mg 0.75 mL, IV Push, q4h ondansetron 2 mg/ 1 mL 2 mL INJ 4 mg 2 mL, IV Push, q4h Lab Results 11/19 04:45 WBC: 10.1 Hgb: 12.0 Hct: 35.9 Platelet: 160 Glucose Level: 133 H Sodium Level: 138 Potassium Level: 3.9 BUN: 6.0 L Creatinine Lvl (s): 0.76 11/18 02:55 WBC: 9.6 Hgb: 11.0 L Hct: 32.4 L Platelet: 147 L Glucose Level: 123 H Sodium Level: 137 Potassium Level: 4.1 BUN: 6.0 L Creatinine Lvl (s): 0.72 Imaging Results and Diagnostics (11/18/2023 00:[address] Abd/Pelvis w/ IV Contrast Only) IMPRESSION: Enlarging spleen with multiple suspected infarcts. Other chronic and incidental findings as described. EKG No qualifying data available. Assessment/Plan We will have the patient follow-up in the office after this lab work has resulted. CALR Mutation Analysis, 11/19/23 5:00:00 EDT, Next AM Draw (one day only), Blood, Once, Nurse Collect, Stop date 11/19/23 5:00:00 EDT Factor II, DNA Analysis(Prothrombin Gene Variant), 11/19/23 5:00:00 EDT, Next AM Draw (one day only), Blood, Once, Nurse Collect, Stop date 11/19/23 5:00:00 EDT Factor V Leiden Mutation, 11/19/23 5:00:00 EDT, Next AM Draw (one day only), Blood, Once, Nurse Collect, Stop date 11/19/23 5:00:00 EDT JAK2 [id number] Mutation Detection, Blood, 11/19/23 5:00:00 EDT, Next AM Draw (one day only), Blood, Once, Stop date 11/19/23 5:00:00 EDT MPL Mutation Analysis, 11/19/23 5:00:00 EDT, Next AM Draw (one day only), Blood, Once, Nurse Collect, Stop date 11/19/23 5:00:00 EDT NGS JAK2 Exons 12-15, 11/19/23 5:00:00 EDT, Next AM Draw (one day only), Blood, Once, Stop date 11/19/23 5:00:00 EDT PNH Panel by FCM, 11/19/23 5:00:00 EDT, Next AM Draw (one day only), Blood, Once, Stop date 11/19/23 5:00:00 EDT Recommend the patient take oral anticoagulation for 6 months. Will order venous Doppler's for bilateral lower extremities. Complete assessment, plan, and recommendations were discussed and decided on by Dr. Lindsay. All decisions were made by the provider. Digitally Signed by VERNON Gutiérrez on 11/20/2023 11:31 AM [facility] [id number] Note* Exam Date Time Procedure Performing Provider Status 11/20/23 4:53 PM Echocardiogram, Adult - CV Auth (Verified) [facility] 06-24-2024 Note Date of Service 11/20/2023 Chief Complaint Patient seen and examined today for sepsis, complicated UTI, splenic infarcts Subjective Patient seen today, still complains of pain in left flank region 43-year-old female with past medical history significant for spina bifida, HLD, HTN, type 2 diabetes mellitus neurogenic bladder s/p suprapubic catheter, neurogenic bowel s/p colostomy, anxiety/depression, paroxysmal SVT, BLE edema, cervical radiculopathy, neuropathy, obesity, chronic pain, insomnia, migraine, recurrent UTIs with Pseudomonas, fatty liver, cervical spinal stenosis, recent admission for at [place] from 10/29/2013 11/02/2023 for UTI presented as a transfer from [facility] because of sepsis, UTI, splenic infarcts. Patient stated that she has been having fever for 2 weeks, she was not feeling well since discharge[facility], she went to [facility] on 11/07/23 and she was given Bactrim for 7 days. She has been having foul-smelling urine and purulent drainage and suprapubic catheter for 2 days. She has been having left flank pain for 2 days. She follows up with urologist at [facility]. And suprapubic catheter will be exchanged by urologist at [facility] every 4 weeks, last exchange was on 10/31/2023 In ED patient had temperature of 38.7, was tachycardic, WBC elevated to 11.5. Urinalysis concerning for infection Sodium [address] abdomen done which showed enlarging spleen with multiple suspected infarcts. Spleen size 15.2 cm and it was 12.8 cm previously. Patient was [facility]. Urology was consulted, suprapubic catheter was exchanged by urology on 11/19/2023. ID on board, continue meropenem Patient was found to have splenic infarcts, hematology was consulted, hypercoagulable workup Ordered, can be followed up as outpatient. [employer] recommended anticoagulation, initially was on heparin drip, transitioned to Eliquis. Echocardiogram pending. Blood cultures no growth No evidence of A-fib on telemetry monitoring. Patient needs 30-day event monitor on discharge Objective Vitals and Measurements T: 36.8 C (Oral) TMIN: 36.8 C (Oral) TMAX: 37.1 C (Oral) HR: 71 RR: 18 BP: 95/63 SpO2: 91% Intake and Output 7AM Yesterday to 7AM Today Intake and Output (Last 24 hours) Intake Administration Information 194.24 Oral Intake 600.00 Output Urinary Catheter Output: 2100.00 Ostomy Stool Volume: 0.00 Emesis Count 0.00 Total Summary Total Intake 794.24 Total Output 2100.00 Fluid Balance -1305.76 Physical Exam General Appearance: Patient appears healthy, well-developed, not in any acute distress. Cardiac: Normal rate and rhythm, S1-S2 heard, no murmurs heard. Lungs: Clear on auscultation bilaterally, no wheezes or rales. Abdomen: Mild tenderness left flank area , colostomy and suprapubic catheter in place Extremities: Mild bilateral lower leg edema Neurological: Alert ,oriented, chronic bilateral leg weakness from spina bifida Rash, no rashes note Weight Current Weight Dosing Weight: 108.4 kg (11/18/23) Current Weight: 112.4 kg (11/19/23) Medications Medications (18) Active Scheduled: (12) apixaban 5 mg tablet 5 mg 1 tab(s), Oral, BID atorvastatin 80 mg tablet 80 mg 1 tab(s), Oral, Daily duloxetine [address] capsule 30 mg 1 cap(s), Oral, qDay furosemide 20 mg tablet 20 mg 1 tab(s), Oral, qPM furosemide 40 mg tablet 40 mg 1 tab(s), Oral, qAM insulin glargine 33 unit(s) 0.33 mL, Subcutaneous (INT), qHS insulin lispro 100 units/mL Soln (3 mL) Give 0-15 units/dose, Subcutaneous, TIDAC meropenem 1,000 mg, IV Piggyback, q8h oxybutynin 5 mg ER tablet 15 mg 3 tab(s), Oral, qPM pregabalin 75 mg capsule 75 mg 1 cap(s), Oral, BID propranolol 10 mg tablet 10 mg 1 tab(s), Oral, BID traZODONE 100 mg Tablet 100 mg 1 tab(s), Oral, qHS Continuous: (0) PRN: (6) acetaminophen 325 mg Tablet 650 mg 2 tab(s), Oral, q4h acetaminophen 325 mg Tablet 650 mg 2 tab(s), Oral, q4h acetaminophen-OXYcodone 325 mg-5 mg Tablet 1 tab(s), Oral, q4h dextrose 50% Solution Disp syringe 50 mL 12.5 gram(s) 25 mL, IV Push, AsDirected morphine 4 mg/mL 1mL INJ 3 mg 0.75 mL, IV Push, q4h ondansetron 2 mg/ 1 mL 2 mL INJ 4 mg 2 mL, IV Push, q4h Lab Results 11/19 04:45 WBC: 10.1 Hgb: 12.0 Hct: 35.9 Platelet: 160 Glucose Level: 133 H Sodium Level: 138 Potassium Level: 3.9 BUN: 6.0 L Creatinine Lvl (s): 0.76 EKG No qualifying data available. Assessment/Plan Orders: apixaban(Eliquis), 5 mg= 1 tab(s), Oral, BID furosemide(Lasix), 40 mg= 1 tab(s), Oral, qAM furosemide(Lasix), 20 mg= 1 tab(s), Oral, qPM Basic Metabolic Panel(BMP), 11/21/23 5:00:00 EDT, Next AM Draw (one day only), Blood, Once, Stop date 11/21/23 5:00:00 EDT Complete Blood Count(CBC), 11/21/23 5:00:00 EDT, Next AM Draw (one day only), Blood, Once, Stop date 11/21/23 5:00:00 EDT Echocardiogram Adult(Cardiac Echo Adult), 11/20/23 13:30:00 EDT, Routine, splenic infarcts, palpitations, Physician to Read: [facility], Echo Contrast: Use if indicated and not contraindicated, MTT with Monitor, None, No, Full code, 108.213879 kg, ME4S, 11/20/23 13:30:00 EDT Event Monitor - Mobile Outpatient Telemetry (7-30 days), 11/20/23 9:03:00 EDT, Physician to Read: ELENA MENA MD, 30, Other, specify in instructions, Splenic infarcts, palpitations, Mail to patient, Mobile Outpatient Telemetry, ME4S, Authorize flip to Event Monitor if insurance denies MOT, Tatum B... ROUTINE EMERGENCY TREATMENT - Full Code, 11/19/23 23:44:00 EDT, Constant order Transfer/Change in Level of Care, 11/20/23 12:39:00 EDT, Level of Care: Regular floor, Medication Review: Provider to Review Medications Urine Culture, 11/19/23 17:13:00 EDT, URGENT (collect within 2 hrs), Urine, Stop date 11/19/23 17:13:00 EDT, Nurse collect Time Spent #1 sepsis: Due to complicated UTI Blood cultures no growth so far 2. Left-sided pyonephritis, complicated UTI: Patient presented with purulent drainage in suprapubiccatheter. - Continue meropenem 1 g every 8 hours -ID on board -Initial urine culture showed mixed organisms -Repeat cultures pending - 3. Neurogenic bladder with suprapubic catheter: Suprapubic catheter exchanged on 11/19/2023 by urology -Further exchanges outpatient by her urologist at [facility] 4. Splenic infarcts : Differential diagnosis include hypercoagulable state/A-fib versus septic emboli -Monitor on telemetry Discontinue heparin drip and start on Eliquis -check echo -Patient needs 30-day event monitor at discharge to rule out any A-fib -Hematology was consulted, recommended anticoagulation at discharge and outpatient follow-up. 5. Patient complained of diarrhea on admission, stool for C. difficile ordered but did not have anybowel movement for 2 days and diarrhea resolved. 6. Insulin-dependent type 2 diabetes mellitus: Continue basal insulin, insulin sliding scale, [id number] 7. Neurogenic bowel status post colostomy 8. Paroxysmal SVT on propranolol 9. History of leg edema on Lasix at home. Resume Lasix today. Venous duplex ultrasound negative forDVT in bilateral lower extremity. DVT px patient on Eliquis Digitally Signed by ALTAGRACIA HARE MD on 11/20/2023 04:15 PM [facility] [id number] Infectious disease Progress note Date of Service 11/20/2023 Objective Vitals and Measurements T: 37.0 C (Oral) TMIN: 36.8 C (Oral) TMAX: 37.1 C (Oral) HR: 86 RR: 18 BP: 100/66 SpO2: 94% Physical Exam Chart reviewed, patient examined. Patient is alert and oriented x3, rather flat in affect but FSC, resting in bed watching TV. No c/o VD, reports ostomy output has been minimal since Monday but reports she is having gas to her ostomy bag. Reports ongoing nausea with mild improvement, reports decreased PO intake due to lack of appetite. Reports intermittent SOB but with improvement, reports occasio nal cough, reports resolved chills and sweats since admission. Reports ongoing left sided flank/abdominal pain, unchanged. No other new complaints this AM, patient does report feeling improvement since admission. Respirations easy and nonlabored, 94% on RA. Patient has remained afebrile for the last 24 hours. 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 Ostomy with no output noted to bag-patient does report having gas even with decreased output. Suprapubic Cook with small yellow output noted to tubing/bag. CURRENT ANTIBIOTICS: Meropenem 1g IV Q8h 11/16 - present CULTURE RESULTS/KURT: 11/16 Blood Cultures 06/30 no growth to date -P 11/16 Urine Culture -F >100,000 cfu/ml Multiple bacterial morphotypes present Probable Contamination 11/18 Urine Culture -P No growth to date Weight Current Weight Dosing Weight: 108.4 kg (11/18/23) Current Weight: 112.4 kg (11/19/23) Medications Medications (18) Active Scheduled: (12) apixaban 5 mg tablet 5 mg 1 tab(s), Oral, BID atorvastatin 80 mg tablet 80 mg 1 tab(s), Oral, Daily duloxetine [address] capsule 30 mg 1 cap(s), Oral, qDay furosemide 20 mg tablet 20 mg 1 tab(s), Oral, qPM furosemide 40 mg tablet 40 mg 1 tab(s), Oral, qAM insulin glargine 33 unit(s) 0.33 mL, Subcutaneous (INT), qHS insulin lispro 100 units/mL Soln (3 mL) Give 0-15 units/dose, Subcutaneous, TIDAC meropenem 1,000 mg, IV Piggyback, q8h oxybutynin 5 mg ER tablet 15 mg 3 tab(s), Oral, qPM pregabalin 75 mg capsule 75 mg 1 cap(s), Oral, BID propranolol 10 mg tablet 10 mg 1 tab(s), Oral, BID traZODONE 100 mg Tablet 100 mg 1 tab(s), Oral, qHS Continuous: (0) PRN: (6) acetaminophen 325 mg Tablet 650 mg 2 tab(s), Oral, q4h acetaminophen 325 mg Tablet 650 mg 2 tab(s), Oral, q4h acetaminophen-OXYcodone 325 mg-5 mg Tablet 1 tab(s), Oral, q4h dextrose 50% Solution Disp syringe 50 mL 12.5 gram(s) 25 mL, IV Push, AsDirected morphine 4 mg/mL 1mL INJ 3 mg 0.75 mL, IV Push, q4h ondansetron 2 mg/ 1 mL 2 mL INJ 4 mg 2 mL, IV Push, q4h Lab Results 11/19 04:45 WBC: 10.1 Hgb: 12.0 Hct: 35.9 Platelet: 160 Glucose Level: 133 H Sodium Level: 138 Potassium Level: 3.9 BUN: 6.0 L Creatinine Lvl (s): 0.76 11/18 02:55 WBC: 9.6 Hgb: 11.0 L Hct: 32.4 L Platelet: 147 L Glucose Level: 123 H Sodium Level: 137 Potassium Level: 4.1 BUN: 6.0 L Creatinine Lvl (s): 0.72 Imaging Results and Diagnostics 11/20/2023 TTE Pending completion and results Problem List #1 complicated urinary tract infection in context of chronic suprapubic catheter. Patient had suprapubic catheter changed by urology #2 splenic infarcts #3 left-sided back and flank pain likely secondary to 1 and 2 #4 spina bifid with neurogenic bladder status post suprapubic catheter Digitally Signed by Alexia Jackson RN on 11/20/2023 01:10 PM [facility] [id number] Infectious disease Progress note Date of Service 11/20/2023 Objective Vitals and Measurements T: 37.0 C (Oral) TMIN: 36.8 C (Oral) TMAX: 37.1 C (Oral) HR: 86 RR: 18 BP: 100/66 SpO2: 94% Physical Exam Chart reviewed, patient examined. Patient is alert and oriented x3, rather flat in affect but FSC, resting in bed watching TV. No c/o VD, reports ostomy output has been minimal since Monday but reports she is having gas to her ostomy bag. Reports ongoing nausea with mild improvement, reports decreased PO intake due to lack of appetite. Reports intermittent SOB but with improvement, reports occasio nal cough, reports resolved chills and sweats since admission. Reports ongoing left sided flank/abdominal pain, unchanged. No other new complaints this AM, patient does report feeling improvement since admission. Respirations easy and nonlabored, 94% on RA. Patient has remained afebrile for the last 24 hours. 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 Ostomy with no output noted to bag-patient does report having gas even with decreased output. Suprapubic Cook with small yellow output noted to tubing/bag. CURRENT ANTIBIOTICS: Meropenem 1g IV Q8h 11/16 - present CULTURE RESULTS/KURT: 11/16 Blood Cultures 06/30 no growth to date -P 11/16 Urine Culture -F >100,000 cfu/ml Multiple bacterial morphotypes present Probable Contamination 11/18 Urine Culture -P No growth to date Weight Current Weight Dosing Weight: 108.4 kg (11/18/23) Current Weight: 112.4 kg (11/19/23) Medications Medications (18) Active Scheduled: (12) apixaban 5 mg tablet 5 mg 1 tab(s), Oral, BID atorvastatin 80 mg tablet 80 mg 1 tab(s), Oral, Daily duloxetine [address] capsule 30 mg 1 cap(s), Oral, qDay furosemide 20 mg tablet 20 mg 1 tab(s), Oral, qPM furosemide 40 mg tablet 40 mg 1 tab(s), Oral, qAM insulin glargine 33 unit(s) 0.33 mL, Subcutaneous (INT), qHS insulin lispro 100 units/mL Soln (3 mL) Give 0-15 units/dose, Subcutaneous, TIDAC meropenem 1,000 mg, IV Piggyback, q8h oxybutynin 5 mg ER tablet 15 mg 3 tab(s), Oral, qPM pregabalin 75 mg capsule 75 mg 1 cap(s), Oral, BID propranolol 10 mg tablet 10 mg 1 tab(s), Oral, BID traZODONE 100 mg Tablet 100 mg 1 tab(s), Oral, qHS Continuous: (0) PRN: (6) acetaminophen 325 mg Tablet 650 mg 2 tab(s), Oral, q4h acetaminophen 325 mg Tablet 650 mg 2 tab(s), Oral, q4h acetaminophen-OXYcodone 325 mg-5 mg Tablet 1 tab(s), Oral, q4h dextrose 50% Solution Disp syringe 50 mL 12.5 gram(s) 25 mL, IV Push, AsDirected morphine 4 mg/mL 1mL INJ 3 mg 0.75 mL, IV Push, q4h ondansetron 2 mg/ 1 mL 2 mL INJ 4 mg 2 mL, IV Push, q4h Lab Results 11/19 04:45 WBC: 10.1 Hgb: 12.0 Hct: 35.9 Platelet: 160 Glucose Level: 133 H Sodium Level: 138 Potassium Level: 3.9 BUN: 6.0 L Creatinine Lvl (s): 0.76 11/18 02:55 WBC: 9.6 Hgb: 11.0 L Hct: 32.4 L Platelet: 147 L Glucose Level: 123 H Sodium Level: 137 Potassium Level: 4.1 BUN: 6.0 L Creatinine Lvl (s): 0.72 Imaging Results and Diagnostics 11/20/2023 TTE Pending completion and results Problem List #1 complicated urinary tract infection in context of chronic suprapubic catheter. Patient had suprapubic catheter changed by urology #2 splenic infarcts #3 left-sided back and flank pain likely secondary to 1 and 2 #4 spina bifid with neurogenic bladder status post suprapubic catheter Digitally Signed by Alexia Jackson RN on 11/20/2023 01:10 PM [id number] Note* Exam Date Time Procedure Performing Provider Status 11/20/23 12:45 PM VL Venous US/Doppler Both Legs(for DVT) Auth (Verified) [facility] 06-24-2024 Hematology Progress note Date of Service 11/20/2023 Chief Complaint Splenic Infarcts Subjective 43-year-old female with past medical history significant for spina bifida, HLD, HTN, type 2 diabetes mellitus neurogenic bladder s/p suprapubic catheter, neurogenic bowel s/p colostomy, anxiety/depression, paroxysmal SVT, BLE edema, cervical radiculopathy, neuropathy, obesity, chronic pain, insomnia, migraine, recurrent UTIs with Pseudomonas, fatty liver, cervical spinal stenosis, recent admission for at [facility] from 10/29/2013 11/02/2023 for UTI presented as a transfer from [facility] because of sepsis, UTI, splenic infarcts. On exam, she is resting comfortable, she reports she is feeling better and her flank pain is better. She denies CP and SOB. She is a nonsmoker. She denies a personal or family history of clotting disorders. Objective Vitals and Measurements T: 36.9 C (Oral) TMIN: 36.8 C (Oral) TMAX: 37.1 C (Oral) HR: 89 RR: 18 BP: 101/69 SpO2: 92% Intake and Output 7AM Yesterday to 7AM Today Intake and Output (Last 24 hours) Intake Administration Information 291.36 Oral Intake 1020.00 Output Urinary Catheter Output: 1650.00 Ostomy Stool Volume: 0.00 Emesis Count 0.00 Total Summary Total Intake 1311.36 Total Output 1650.00 Fluid Balance -338.64 Physical Exam General Appearance: Patient appears healthy, well-developed, not in any acute distress. Cardiac: Normal rate and rhythm, S1-S2 heard, no murmurs heard. Lungs: Clear on auscultation bilaterally, no wheezes or rales. Abdomen: Mild tenderness left flank area and positive CVA tenderness. Purulent drainage in suprapubic catheter, colostomy in place Extremities: No pedal edema. Neurological: Alert ,oriented, chronic leg weakness from spina bifida Skin: Warm and dry, no rash noted Weight Current Weight Dosing Weight: 108.4 kg (11/18/23) Current Weight: 112.4 kg (11/19/23) Medications Medications (19) Active Scheduled: (11) atorvastatin 80 mg tablet 80 mg 1 tab(s), Oral, Daily duloxetine [address] capsule 30 mg 1 cap(s), Oral, qDay furosemide 20 mg tablet 20 mg 1 tab(s), Oral, qPM furosemide 40 mg tablet 40 mg 1 tab(s), Oral, qAM insulin glargine 33 unit(s) 0.33 mL, Subcutaneous (INT), qHS insulin lispro 100 units/mL Soln (3 mL) Give 0-15 units/dose, Subcutaneous, TIDAC meropenem 1,000 mg, IV Piggyback, q8h oxybutynin 5 mg ER tablet 15 mg 3 tab(s), Oral, qPM pregabalin 75 mg capsule 75 mg 1 cap(s), Oral, BID propranolol 10 mg tablet 10 mg 1 tab(s), Oral, BID traZODONE 100 mg Tablet 100 mg 1 tab(s), Oral, qHS Continuous: (1) heparin 25,000 unit(s) [9.2 unit(s)/kg/hr] + Dextrose 5% Premix Diluent 250 mL 250 mL, Intravenous,9.97 mL/hr PRN: (7) acetaminophen 325 mg Tablet 650 mg 2 tab(s), Oral, q4h acetaminophen 325 mg Tablet 650 mg 2 tab(s), Oral, q4h acetaminophen-OXYcodone 325 mg-5 mg Tablet 1 tab(s), Oral, q4h dextrose 50% Solution Disp syringe 50 mL 12.5 gram(s) 25 mL, IV Push, AsDirected heparin 5,000 units/mL (1 mL) vial 4,000 unit(s) 0.8 mL, IV Push, q6h morphine 4 mg/mL 1mL INJ 3 mg 0.75 mL, IV Push, q4h ondansetron 2 mg/ 1 mL 2 mL INJ 4 mg 2 mL, IV Push, q4h Lab Results 11/19 04:45 WBC: 10.1 Hgb: 12.0 Hct: 35.9 Platelet: 160 Glucose Level: 133 H Sodium Level: 138 Potassium Level: 3.9 BUN: 6.0 L Creatinine Lvl (s): 0.76 11/18 02:55 WBC: 9.6 Hgb: 11.0 L Hct: 32.4 L Platelet: 147 L Glucose Level: 123 H Sodium Level: 137 Potassium Level: 4.1 BUN: 6.0 L Creatinine Lvl (s): 0.72 Imaging Results and Diagnostics (11/18/2023 00:[address] Abd/Pelvis w/ IV Contrast Only) IMPRESSION: Enlarging spleen with multiple suspected infarcts. Other chronic and incidental findings as described. EKG No qualifying data available. Assessment/Plan We will have the patient follow-up in the office after this lab work has resulted. CALR Mutation Analysis, 11/19/23 5:00:00 EDT, Next AM Draw (one day only), Blood, Once, Nurse Collect, Stop date 11/19/23 5:00:00 EDT Factor II, DNA Analysis(Prothrombin Gene Variant), 11/19/23 5:00:00 EDT, Next AM Draw (one day only), Blood, Once, Nurse Collect, Stop date 11/19/23 5:00:00 EDT Factor V Leiden Mutation, 11/19/23 5:00:00 EDT, Next AM Draw (one day only), Blood, Once, Nurse Collect, Stop date 11/19/23 5:00:00 EDT JAK2 [id number] Mutation Detection, Blood, 11/19/23 5:00:00 EDT, Next AM Draw (one day only), Blood, Once, Stop date 11/19/23 5:00:00 EDT MPL Mutation Analysis, 11/19/23 5:00:00 EDT, Next AM Draw (one day only), Blood, Once, Nurse Collect, Stop date 11/19/23 5:00:00 EDT NGS JAK2 Exons 12-15, 11/19/23 5:00:00 EDT, Next AM Draw (one day only), Blood, Once, Stop date 11/19/23 5:00:00 EDT [facility] Panel by [facility], 11/19/23 5:00:00 EDT, Next AM Draw (one day only), Blood, Once, Stop date 11/19/23 5:00:00 EDT Recommend the patient take oral anticoagulation for 6 months. Will order venous Doppler's for bilateral lower extremities. Complete assessment, plan, and recommendations were discussed and decided on by Dr. Lindsay. All decisions were made by the provider. Digitally Signed by VERNON Gutiérrez on 11/20/2023 11:31 AM [id number] Note Date of Service 11/19/2023 Chief Complaint Patient seen and examined today for sepsis, complicated UTI, splenic infarcts Subjective pt seen today, still has left-sided abdominal pain, no bowel movements for 2 days. Objective Vitals and Measurements T: 36.8 C (Oral) TMIN: 36.7 C (Oral) TMAX: 37.0 C (Oral) HR: 78 RR: 18 BP: 92/62 SpO2: 93% WT: 112.4 kg Intake and Output 7AM Yesterday to 7AM Today Intake and Output (Last 24 hours) Intake Oral Intake 1200.00 Administration Information 97.12 Output Urinary Catheter Output: 1300.00 Ostomy Stool Volume: 0.00 Stool Count 0.00 Total Summary Total Intake 1297.12 Total Output 1300.00 Fluid Balance -2.88 Physical Exam General Appearance: Patient appears healthy, well-developed, not in any acute distress. Cardiac: Normal rate and rhythm, S1-S2 heard, no murmurs heard. Lungs: Clear on auscultation bilaterally, no wheezes or rales. Abdomen: Mild tenderness left flank area , colostomy and suprapubic catheter in place Extremities: No pedal edema. Neurological: Alert ,oriented, chronic bilateral leg weakness from spina bifida Rash, no rashes note Weight Current Weight Dosing Weight: 108.4 kg (11/18/23) Current Weight: 112.4 kg (11/19/23) Medications Medications (17) Active Scheduled: (9) atorvastatin 80 mg tablet 80 mg 1 tab(s), Oral, Daily duloxetine [address] capsule 30 mg 1 cap(s), Oral, qDay insulin glargine 33 unit(s) 0.33 mL, Subcutaneous (INT), qHS insulin lispro 100 units/mL Soln (3 mL) Give 0-15 units/dose, Subcutaneous, TIDAC meropenem 1,000 mg, IV Piggyback, q8h oxybutynin 5 mg ER tablet 15 mg 3 tab(s), Oral, qPM pregabalin 75 mg capsule 75 mg 1 cap(s), Oral, BID propranolol 10 mg tablet 10 mg 1 tab(s), Oral, BID traZODONE 100 mg Tablet 100 mg 1 tab(s), Oral, qHS Continuous: (1) heparin 25,000 unit(s) [9.2 unit(s)/kg/hr] + Dextrose 5% Premix Diluent 250 mL 250 mL, Intravenous,9.97 mL/hr PRN: (7) acetaminophen 325 mg Tablet 650 mg 2 tab(s), Oral, q4h acetaminophen 325 mg Tablet 650 mg 2 tab(s), Oral, q4h acetaminophen-OXYcodone 325 mg-5 mg Tablet 1 tab(s), Oral, q4h dextrose 50% Solution Disp syringe 50 mL 12.5 gram(s) 25 mL, IV Push, AsDirected heparin 5,000 units/mL (1 mL) vial 4,000 unit(s) 0.8 mL, IV Push, q6h morphine 4 mg/mL 1mL INJ 3 mg 0.75 mL, IV Push, q4h ondansetron 2 mg/ 1 mL 2 mL INJ 4 mg 2 mL, IV Push, q4h Lab Results 11/18 02:55 WBC: 9.6 Hgb: 11.0 L Hct: 32.4 L Platelet: 147 L Glucose Level: 123 H Sodium Level: 137 Potassium Level: 4.1 BUN: 6.0 L Creatinine Lvl (s): 0.72 11/17 12:07 WBC: 9.5 Hgb: 11.3 L Hct: 32.7 L Platelet: 155 Protime: 11.0 PT International Ratio: 1.0 Glucose Level: 168 H Sodium Level: 139 Potassium Level: 3.8 BUN: 7.0 L Creatinine Lvl (s): 0.72 EKG No qualifying data available. Assessment/Plan Orders: Basic Metabolic Panel(BMP), 11/20/23 5:00:00 EDT, Next AM Draw (one day only), Blood, Once, Stop date 11/20/23 5:00:00 EDT Complete Blood Count(CBC), 11/20/23 5:00:00 EDT, Next AM Draw (one day only), Blood, Once, Stop date 11/20/23 5:00:00 EDT Time Spent #1 sepsis: Due to complicated UTI Blood cultures no growth so far 2. Left-sided pyonephritis, complicated UTI: Patient with purulent drainage in suprapubic catheter. - Continue meropenem 1 g every 8 hours -ID on board -Initial urine culture showed mixed organisms -Repeat cultures ordered today 3. Neurogenic bladder with suprapubic catheter: Suprapubic catheter exchanged on 11/19/2023 by urology -Further exchanges outpatient by her urologist at [facility] 4. Splenic infarcts : Differential diagnosis include hypercoagulable state/A-fib versus septic emboli -Monitor on telemetry -Continue heparin drip -check echo -Patient needs 30-day event monitor at discharge to rule out any A-fib -Hematology was consulted, recommended anticoagulation at discharge and outpatient follow-up. 5. Patient complained of diarrhea on admission, stool for C. difficile ordered but did not have anybowel movement for 2 days and diarrhea resolved. 6. Insulin-dependent type 2 diabetes mellitus: Continue basal insulin, insulin sliding scale, [id number] 7. Neurogenic bowel status post colostomy 8. Paroxysmal SVT on propranolol 9. DVT px patient on heparin drip Digitally Signed by ALTAGRACIA HARE MD on 11/19/2023 05:12 PM Digitally Signed by ALTAGRACIA HARE MD on 11/19/2023 05:14 PM [facility] [id number] Urology Consult note Date of Service 11/19/23 Reason for Consultation Suprapubic tube change History of Present Illness 43-year-old female with past medical history significant for spina bifida, HLD, HTN, type 2 diabetes mellitus neurogenic bladder s/p suprapubic catheter, neurogenic bowel s/p colostomy, anxiety/depression, paroxysmal SVT, BLE edema, cervical radiculopathy, neuropathy, obesity, chronic pain, insomnia, migraine, recurrent UTIs with Pseudomonas, fatty liver, cervical spinal stenosis, recent admission for at [place] from 10/29/2013 11/02/2023 for UTI presented as a transfer from [facility] because of sepsis, UTI, splenic infarcts. Report from [place] ED physician was taken by my colleague overnight Patient stated that she has been having fever for 2 weeks, she was not feeling well since dischargefrom [facility], she went to [facility] ED on 11/07/23 and she was given Bactrim for 7 days. She has been having foul-smelling urine and purulent drainage and suprapubic catheter for 2 days. She has been having left flank pain for 2 days. She denies any cough, chest pain, abdominal pain. She has been having loose stools for the past 2 weeks. She sometimes has palpitations, hence takes propranolol as outpatient She follows up with urologist at [facility]. And suprapubic catheter will be exchanged by urologist at [facility] every 4 weeks, last exchange was on 10/31/2023 and due for exchange in 12/05/2023. In ED patient had temperature of 38.7, was tachycardic, WBC elevated to 11.5. Urinalysis concerning for infection Sodium [address] abdomen done which showed enlarging spleen with multiple suspected infarcts. Spleen size 15.2 cm and it was 12.8 cm previously. [facility] was [facility]. [1] Urology has been consulted regarding suprapubic tube change although her SPT was just changed 10/31/2023. The patient denies any pain with suprapubic tube currently. She denies gross hematuria. Review of Systems GENERAL: No fevers, no chills, no weight loss. INTEGUMENTARY: No rashes. HEENT: No headaches, no visual disturbances, no hearing loss. CARDIOVASCULAR: No chest pain, no palpitations. RESPIRATORY: No shortness of breath, no cough. GI: No nausea, no diarrhea. : see HPI for pertinent positives and negatives. MUSCULOSKELETAL: No pain, no weakness. NEUROLOGIC: No focal deficits. PSYCHIATRIC: no depression, no anxiety. HEMATOLOGY: No abnormal bruising, no easy bleeding. Physical Exam Vitals and Measurements T: 36.7 C (Oral) TMIN: 36.7 C (Oral) TMAX: 37 C (Oral) HR: 84 RR: 20 BP: 111/67 SpO2: 96% HT: 155 cm WT: 112.4 kg BMI: 45.12 Weight Current Weight Dosing Weight: 108.4 kg (11/18/23) Current Weight: 112.4 kg (11/19/23) GENERAL: 43 year old female that is resting in bed. Appears to be in no acute distress. Family at bedside. SKIN: warm and dry. No rashes noted. HEENT: mucous membranes moist. LUNGS: no use of accessory muscles. ABDOMEN: Soft, non distended, non tender GENITOURINARY: 20 FR suprapubic tube present. Draining clear yellow. Secured with cath secure. MUSCULOSKELETAL: Moves all extremities x 2. VASCULAR: . No edema. NEUROLOGICAL: A&O x3. No focal deficits. SPT change: The existing 20 Algerian suprapubic tube was removed without difficulty. The area was prepped with Betadine and the fresh 20 Algerian suprapubic tube was placed with 10 cc filling the balloon and lightlypink urine draining into the tubing. The patient tolerated the procedure well. Lab Results 11/18 02:55 WBC: 9.6 Hgb: 11.0 L Hct: 32.4 L Platelet: 147 L Glucose Level: 123 H Sodium Level: 137 Potassium Level: 4.1 BUN: 6.0 L Creatinine Lvl (s): 0.72 11/17 12:07 WBC: 9.5 Hgb: 11.3 L Hct: 32.7 L Platelet: 155 Protime: 11.0 PT International Ratio: 1.0 Glucose Level: 168 H Sodium Level: 139 Potassium Level: 3.8 BUN: 7.0 L Creatinine Lvl (s): 0.72 Assessment/Plan Neurogenic bladder Suprapubic tube was changed at bedside today. The patient should resume with regular suprapubic tube changes With her regular urologist. Problem List/Past Medical History Ongoing Diabetes Neurogenic bladder disorder Recurrent UTI (urinary tract infection) Spina bifida Type 2 diabetes mellitus Urinary tract infection Procedure/Surgical History Suprapubic catheter procedure Colostomy Cholecystectomy Partial amputation of toe of left foot Umbilical hernia Back Medications Inpatient atorvastatin, 80 mg= 1 tab(s), Oral, Daily Cymbalta, 30 mg= 1 cap(s), Oral, qDay Dextrose 50% IV Push, 12.5 gram(s)= 25 mL, IV Push, AsDirected, PRN Heparin for IV 25,000 unit(s) [9.2 unit(s)/kg/hr] + Dextrose 5% Premix Diluent 250 mL Heparin HBW CARDIAC Bolus 5000 units/mL, 4000 unit(s)= 0.8 mL, 60 unit(s)/kg, IV Push, q6h, PRN HumaLOG 100 units/mL subcutaneous solution, Give 0-15 units/dose, Subcutaneous, TIDAC Lantus, 33 unit(s)= 0.33 mL, Subcutaneous (INT), qHS meropenem morphine, 3 mg= 0.75 mL, IV Push, q4h, PRN oxybutynin 15 mg/24 hr oral tablet, extended release, 15 mg= 3 tab(s), Oral, qPM Percocet 325/5, 1 tab(s), Oral, q4h, PRN pregabalin 75 mg oral capsule, 75 mg= 1 cap(s), Oral, BID propranolol, 10 mg= 1 tab(s), Oral, BID traZODone, 100 mg= 1 tab(s), Oral, qHS Tylenol, 650 mg= 2 tab(s), Oral, q4h, PRN Tylenol, 650 mg= 2 tab(s), Oral, q4h, PRN Zofran, 4 mg= 2 mL, IV Push, q4h, PRN Home atorvastatin 80 mg oral tablet, 80 mg= 1 tab(s), Oral, Daily Cymbalta 30 mg oral delayed release capsule, 30 mg= 1 cap(s), Oral, qDay DME MISCellaneous, See Instructions Fiasp FlexTouch 100 units/mL injectable solution, See Instructions Lantus 100 units/mL10 ml vial solution, 33 unit(s), Subcutaneous, qHS Lasix 20 mg oral tablet, 40 mg= 2 tab(s), Oral, qAM Lasix 20 mg oral tablet, 20 mg= 1 tab(s), Oral, qPM lisinopril 2.5 mg oral tablet, 2.5 mg= 1 tab(s), Oral, qDay oxybutynin 15 mg/24 hr oral tablet, extended release, 15 mg= 1 tab(s), Oral, qPM pregabalin 75 mg oral capsule, 75 mg= 1 cap(s), Oral, BID propranolol 20 mg oral tablet, 10 mg= 0.5 tab(s), Oral, BID traZODone 100 mg oral tablet, 100 mg= 1 tab(s), Oral, qHS Allergies Mushrooms(Severe) Throat swelling Peanuts(Severe) Throat swelling Rocephin(Severe) Hives cephalosporins(Severe) Anaphylaxis, Hives gabapentin (Moderate) psychotic breakdown Latex (Mild) Hives contrast media (gadolinium-based) penicillin Unknown vancomycin Social History Smoking Status - 02/26/2018 Never smoker Alcohol - Low Risk, 02/26/2018 Frequency: 1-2 times per year., 02/26/2018 Home/Environment Domestic Concerns: None. Living situation: Home/Independent. Safe place to go: Yes. Lives In: 1st floor bathroom. Current Home Treatments Blood Glucose monitoring., 04/24/2022 Nutrition/Health Type of diet: Diabetic. Appetite Good. Eating Difficulties None., 04/24/2022 Sexual Sexually active: Yes. Self described orientation: Straight or heterosexual., 04/24/2022 Substance Abuse - Denies Substance Abuse, 02/11/2017 Use: Never., 04/24/2022 Tobacco Nicotine Use: Never (less than 100 in lifetime)., 04/24/2022 Family History Cancer: Mother.Negative: Father, Sister, Brother, Daughter, Son and Grandparent. Diabetes: Mother. Stroke: Grandparent.Negative: Mother. Health Status Family Member(s) Immunizations No qualifying data available. [1] History and Physical; ALTAGRACIA HARE MD 11/18/2023 10:38 EDT Digitally Signed by ARACELI KIDD DO on 11/19/2023 09:18 AM [id number] Nurse Progress note Student's documentation was reviewed and all medications were verified prior to administration. Digitally Signed by Luna Gutiérrez RN on 11/18/2023 06:36 PM [facility] [id number] Infectious disease Consult note Date of Service 11/18/2023 Reason for Consultation Complicated UTI Referring Physician Dr. Hare History of Present Illness Patient is a 43-year-old female with past medical history of spina bifid, hypertension hyperlipidemia type 2 diabetes mellitus neurogenic bladder status post suprapubic catheter, status post colostomy, anxiety/depression, paroxysmal SVT, history of recurrent urinary tract infections, cervical spinal stenosis, recently admitted to [place] earlier this month for suspected UTI, subsequently discharged but presented back to [place] emergency room on 11/17/2023 and subsequently transferred here. She has been transferred here for suspected urinary tract infection. She has been having fevers for 2-week associated with left flank pain patient reports that her symptoms are going on for 2 weeks. She denies nausea vomiting but sometimes has loose output in her colostomy bag. No insect bite tick bites or animal bites. Her main complaint is pain in her left flank which exacerbates with moving. ID consulted given concern for UTI. Patient febrile upon presentation. B blood and urine cultures are pending at this time. Apparently patient is also noted to have splenic infarcts hence hematology service is consulted. Review of Systems 12 point review of systems is reviewed and is negative except for noted above. Physical Exam Vitals and Measurements T: 37 C (Oral) HR: 81 RR: 18 BP: 109/66 SpO2: 98% HT: 155 cm WT: 108.4 kg BMI: 45.12 Weight Dosing Weight: 108.4 kg (11/18/23) General Appearance: Patient is laying in the bed not in any apparent distress HEENT: Atraumatic normocephalic, EOMI Neck: Neck supple oral mucosa moist Cardiac: first and second heart sounds audible Lungs: Clear to auscultation bilaterally Abdomen: Soft nontender nondistended bowel sounds positive Musculoskeletal: Extremities: No lower extremity edema Neurological: Grossly non focal Skin: No rash Lab Results 11/17 12:07 WBC: 9.5 Hgb: 11.3 L Hct: 32.7 L Platelet: 155 Protime: 11.0 PT International Ratio: 1.0 Glucose Level: 168 H Sodium Level: 139 Potassium Level: 3.8 BUN: 7.0 L Creatinine Lvl (s): 0.72 Imaging Results and Diagnostics CT abdomen and pelvis report showing enlarging his pain with multiple suspected infarcts CT also shows systemic enhancement of the kidneys no right lower pole nonobstructive nephrolithiasis extrarenal right pelvis air locules intraluminally within suprapubic catheter which decompresses the urinary b ladder. Left uterine fibroid. Assessment/Plan Patient is a 43-year-old female with history of spina bifid hypertension hyperlipidemia type 2 diabetes mellitus neurogenic bladder with suprapubic catheter, and multiple other comorbid conditions presents here with fever and left-sided flank pain for 2 weeks. #1 complicated urinary tract infection. Patient with suprapubic catheter. Urine culture is pending.Continue patient on meropenem apparently patient is allergic to penicillin and cephalosporins patient reports reaction being anaphylaxis. Continue meropenem. Await urine culture results #2 splenic infarcts await blood culture results recommend transthoracic echocardiogram #3 left-sided back and flank pain likely secondary to 1 and 2 #4 spina bifid with neurogenic bladder status post suprapubic catheter ID to follow Problem List/Past Medical History Ongoing Diabetes Neurogenic bladder disorder Recurrent UTI (urinary tract infection) Spina bifida Type 2 diabetes mellitus Urinary tract infection Procedure/Surgical History Suprapubic catheter procedure Colostomy Cholecystectomy Partial amputation of toe of left foot Umbilical hernia Back Medications Inpatient atorvastatin, 80 mg= 1 tab(s), Oral, Daily Cymbalta, 30 mg= 1 cap(s), Oral, qDay Dextrose 50% IV Push, 12.5 gram(s)= 25 mL, IV Push, AsDirected, PRN Heparin for IV 25,000 unit(s) [9.2 unit(s)/kg/hr] + Dextrose 5% Premix Diluent 250 mL Heparin HBW CARDIAC Bolus 5000 units/mL, 4000 unit(s)= 0.8 mL, 60 unit(s)/kg, IV Push, q6h, PRN HumaLOG 100 units/mL subcutaneous solution, Give 0-15 units/dose, Subcutaneous, TIDAC Lantus, 33 unit(s)= 0.33 mL, Subcutaneous (INT), qHS meropenem NS 1,000 mL, 1000 mL, Intravenous oxybutynin 15 mg/24 hr oral tablet, extended release, 15 mg= 3 tab(s), Oral, qPM Percocet 325/5, 1 tab(s), Oral, q4h, PRN pregabalin 75 mg oral capsule, 75 mg= 1 cap(s), Oral, BID propranolol, 10 mg= 1 tab(s), Oral, BID traZODone, 100 mg= 1 tab(s), Oral, qHS Tylenol, 650 mg= 2 tab(s), Oral, q4h, PRN Tylenol, 650 mg= 2 tab(s), Oral, q4h, PRN Zofran, 4 mg= 2 mL, IV Push, q4h, PRN Home atorvastatin 80 mg oral tablet, 80 mg= 1 tab(s), Oral, Daily Cymbalta 30 mg oral delayed release capsule, 30 mg= 1 cap(s), Oral, qDay DME MISCellaneous, See Instructions Fiasp FlexTouch 100 units/mL injectable solution, See Instructions Lantus 100 units/mL10 ml vial solution, 33 unit(s), Subcutaneous, qHS Lasix 20 mg oral tablet, 40 mg= 2 tab(s), Oral, qAM Lasix 20 mg oral tablet, 20 mg= 1 tab(s), Oral, qPM lisinopril 2.5 mg oral tablet, 2.5 mg= 1 tab(s), Oral, qDay oxybutynin 15 mg/24 hr oral tablet, extended release, 15 mg= 1 tab(s), Oral, qPM pregabalin 75 mg oral capsule, 75 mg= 1 cap(s), Oral, BID propranolol 20 mg oral tablet, 10 mg= 0.5 tab(s), Oral, BID traZODone 100 mg oral tablet, 100 mg= 1 tab(s), Oral, qHS Allergies Mushrooms(Severe) Throat swelling Peanuts(Severe) Throat swelling Rocephin(Severe) Hives cephalosporins(Severe) Anaphylaxis, Hives gabapentin (Moderate) psychotic breakdown Latex (Mild) Hives contrast media (gadolinium-based) penicillin Unknown vancomycin Social History Smoking Status - 02/26/2018 Never smoker Alcohol - Low Risk, 02/26/2018 Frequency: 1-2 times per year., 02/26/2018 Home/Environment Domestic Concerns: None. Living situation: Home/Independent. Safe place to go: Yes. Lives In: 1st floor bathroom. Current Home Treatments Blood Glucose monitoring., 04/24/2022 Nutrition/Health Type of diet: Diabetic. Appetite Good. Eating Difficulties None., 04/24/2022 Sexual Sexually active: Yes. Self described orientation: Straight or heterosexual., 04/24/2022 Substance Abuse - Denies Substance Abuse, 02/11/2017 Use: Never., 04/24/2022 Tobacco Nicotine Use: Never (less than 100 in lifetime)., 04/24/2022 Family History Cancer: Mother.Negative: Father, Sister, Brother, Daughter, Son and Grandparent. Diabetes: Mother. Stroke: Grandparent.Negative: Mother. Health Status Family Member(s) Immunizations No qualifying data available. Digitally Signed by JOHAN GERMAN MD on 11/18/2023 02:54 PM [id number] Evaluation + Plan noteExtracted from: Title:History and Physical Author:RIGOBERTO HARE MD Date:11/18/23 #1 sepsis: Due to complicated UTI Blood cultures obtained in ED pending- 2. Left-sided pyonephritis, complicated UTI: Patient with purulent drainage in suprapubic catheter. Last exchange was on 10/31/2023. -Continue meropenem 1 g every 8 hours -Consult ID because of multiple antibiotic allergies , repeat admission, and failed outpatient antibiotic treatment 3. Neurogenic bladder with suprapubic catheter: -Consult urology for consideration of suprapubic catheter exchange 4. Splenic infarcts : Differential diagnosis include hypercoagulable state/A-fib -Monitor on telemetry -Continue heparin drip -Consult hematology for further evaluation and recommendation 5. Diarrhea: Check stool for C. difficile and stool GI panel 6. Insulin-dependent type 2 diabetes mellitus: Continue basal insulin, insulin sliding scale, check HbA1c 7. Neurogenic bowel status post colostomy 8. Paroxysmal SVT on propranolol 9. DVT px patient on heparin drip CODE STATUS discussed and she is full code Diagnostic Tests Pending * [facility] [place] Specimens[place]/19/23 * [facility] by [facility] 11/19/23 [facility] 06-22-2024 Hematology Consult note Date of Service 18Nov2023 Reason for Consultation splenic infarcts Referring Physician Jessica History of Present Illness 43F with poorly-controlled DM2 and neurogenic bladder with suprapubic catheter and history of recurrent complicated UTI, spina bifida, obesity, NAFLD, paroxysmal SVT. She was admitted on 18Nov2023 after presenting to ER with L flank pain, found to have sepsis with pyelonephritis. CT AP showed splenomegaly with splenic infarcts (new compared to prior study on ). Hematology consulted regarding splenic infarcts. Today, she states she s still having L flank pain. Denies any fevers currently, CP/SOB/palpitations. Spends a lot of time sedentary in bed due to spina bifida but tries to move around as best she can(pending spinal procedure for correction). Denies history of blood clots or any such issues in the family. Notes history of SVT which she states comes about during times of stress. Denies tobacco use, OCP, HRT. Had pap smear earlier in 2023 with ASCUS but has not had follow up for that. Had mammogram at that time too with no evidence of malignancy. Had endoscopy at time of colostomy procedure, done due to fecal impaction from spina bifida. Review of Systems 12-point ROS obtained, except for the aforementioned point is otherwise unremarkable Physical Exam Vitals and Measurements T: 37 C (Oral) HR: 81 RR: 18 BP: 109/66 SpO2: 98% HT: 155 cm WT: 108.4 kg BMI: 45.12 Weight Dosing Weight: 108.4 kg (11/18/23) VS: reviewed Pain:5/10 PS:1-2 Gen: AAOx3, NAD, pleasant and cooperative Lab Results 11/17 12:07 WBC: 9.5 Hgb: 11.3 L Hct: 32.7 L Platelet: 155 Imaging Results and Diagnostics Studies: CBC reviewed, with mild leukocytosis. Hgb, RBC, platelet normal. test 3 Pedro Pablo negative. Chem panel with mild transaminase elevation, normal bilirubin. CT AP with IV contrast: FINDINGS: LOWER THORAX: Imaged lungs are clear. No visible pericardial or pleural effusion. GI TRACT: The stomach is grossly normal. A left upper quadrant colostomy and bowel containing parastomal hernia are redemonstrated. No dilated segments of bowel. The rectal stump is unremarkable. SOLID ORGANS: The liver, pancreas, and adrenal glands are unremarkable. There are several linear and wedge-shaped hypodensities in the spleen which appears enlarged compared to the prior study, 15.2 cm compared to 12.8 cm previously. There is symmetric enhancement of the kidneys. Right lower pole nonobstructive nephrolithiasis. Extrarenal right pelvis. Similar scarring of the right kidney. Right renal cyst. No hydronephrosis. Suprapubic catheter decompresses the urinary bladder which chest small, presumably procedural related, air locules intraluminally. Stable left uterine fibroid. LYMPH/VASCULAR/MESENTERY: No abdominopelvic lymphadenopathy, free fluid, or free air. The portal and splenic veins are patent. There is no significant atherosclerotic disease of the aorta or celiac axis. SOFT TISSUES/BONES: Ventral abdominal wall hernia repair is noted. Moderate size fat containing umbilical hernia. No acute osseous abnormality. IMPRESSION: Enlarging spleen with multiple suspected infarcts. Other chronic and incidental findings as described. Assessment/Plan Orders: CALR Mutation Analysis, 11/19/23 5:00:00 EDT, Next AM Draw (one day only), Blood, Once, Nurse Collect, Stop date 11/19/23 5:00:00 EDT Factor II, DNA Analysis(Prothrombin Gene Variant), 11/19/23 5:00:00 EDT, Next AM Draw (one day only), Blood, Once, Nurse Collect, Stop date 11/19/23 5:00:00 EDT Factor V Leiden Mutation, 11/19/23 5:00:00 EDT, Next AM Draw (one day only), Blood, Once, Nurse Collect, Stop date 11/19/23 5:00:00 EDT JAK2 [id number] Mutation Detection, Blood, 11/19/23 5:00:00 EDT, Next AM Draw (one day only), Blood, Once, Stop date 11/19/23 5:00:00 EDT MPL Mutation Analysis, 11/19/23 5:00:00 EDT, Next AM Draw (one day only), Blood, Once, Nurse Collect, Stop date 11/19/23 5:00:00 EDT NGS JAK2 Exons 12-15, 11/19/23 5:00:00 EDT, Next AM Draw (one day only), Blood, Once, Stop date 11/19/23 5:00:00 EDT [facility] Panel by [facility], 11/19/23 5:00:00 EDT, Next AM Draw (one day only), Blood, Once, Stop date 11/19/23 5:00:00 EDT #Splenic infarcts, acute process. Unknown etiology, but likely related to state of chronic inflammation from obesity, DM2, recurrent UTI. Can not rule out these infarcts being infectious in etiology,especially given current presentation of sepsis. Note history of SVT, so dysrhythmia also of concern as possible source of emboli. No known history of HbSS or prior VTE or clotting event, so less like ly underlying hypercoagulable condition. No other intraabdominal/pelvic adenopathy or masses. -Consider septic thromboembolic (such as echocardiogram and other imaging as appropriate) and dysrhythmia workup/management given current presentation. Defer such to primary team. -Low suspicion for inherited arterial hypercoagulable state, but will send off some initial geneticstudies to evaluate for such and MPNs. Would not recommend full hypercoagulable testing at this time given acute clotting and being on current anticoagulation. Can consider such as outpatient if no other identifiable cause for anticoagulation found. -Reasonable to continue anticoagulation for now, with transition to DOAC at primary team s discretion. Duration typically depends on the cause. For example, if felt that this is infectious related, treatment of infection is priority and could consider definitive period of anticoagulation treatment.If no other apparent cause, may need to consider long-term anticoagulation. Defer to outpatient setting for such discussions. -Pain control and management of sepsis deferred to primary team. Consider surgery consult if continuing to have symptoms from infarcts/splenomegaly. -Followup with PCP and [employer]ER regarding ASCUS Hematology will sign off. Patient can follow up with hematology as outpatient after discharge for further management. Problem List/Past Medical History Ongoing Diabetes Neurogenic bladder disorder Recurrent UTI (urinary tract infection) Spina bifida Type 2 diabetes mellitus Urinary tract infection Procedure/Surgical History Suprapubic catheter procedure Colostomy Cholecystectomy Partial amputation of toe of left foot Umbilical hernia Back Medications Inpatient atorvastatin, 80 mg= 1 tab(s), Oral, Daily Cymbalta, 30 mg= 1 cap(s), Oral, qDay Dextrose 50% IV Push, 12.5 gram(s)= 25 mL, IV Push, AsDirected, PRN Heparin for IV 25,000 unit(s) [9.2 unit(s)/kg/hr] + Dextrose 5% Premix Diluent 250 mL Heparin HBW CARDIAC Bolus 5000 units/mL, 4000 unit(s)= 0.8 mL, 60 unit(s)/kg, IV Push, q6h, PRN HumaLOG 100 units/mL subcutaneous solution, Give 0-15 units/dose, Subcutaneous, TIDAC Lantus, 33 unit(s)= 0.33 mL, Subcutaneous (INT), qHS meropenem NS 1,000 mL, 1000 mL, Intravenous oxybutynin 15 mg/24 hr oral tablet, extended release, 15 mg= 3 tab(s), Oral, qPM Percocet 325/5, 1 tab(s), Oral, q4h, PRN pregabalin 75 mg oral capsule, 75 mg= 1 cap(s), Oral, BID propranolol, 10 mg= 1 tab(s), Oral, BID traZODone, 100 mg= 1 tab(s), Oral, qHS Tylenol, 650 mg= 2 tab(s), Oral, q4h, PRN Tylenol, 650 mg= 2 tab(s), Oral, q4h, PRN Zofran, 4 mg= 2 mL, IV Push, q4h, PRN Home atorvastatin 80 mg oral tablet, 80 mg= 1 tab(s), Oral, Daily Cymbalta 30 mg oral delayed release capsule, 30 mg= 1 cap(s), Oral, qDay DME MISCellaneous, See Instructions Fiasp FlexTouch 100 units/mL injectable solution, See Instructions Lantus 100 units/mL10 ml vial solution, 33 unit(s), Subcutaneous, qHS Lasix 20 mg oral tablet, 40 mg= 2 tab(s), Oral, qAM Lasix 20 mg oral tablet, 20 mg= 1 tab(s), Oral, qPM lisinopril 2.5 mg oral tablet, 2.5 mg= 1 tab(s), Oral, qDay oxybutynin 15 mg/24 hr oral tablet, extended release, 15 mg= 1 tab(s), Oral, qPM pregabalin 75 mg oral capsule, 75 mg= 1 cap(s), Oral, BID propranolol 20 mg oral tablet, 10 mg= 0.5 tab(s), Oral, BID traZODone 100 mg oral tablet, 100 mg= 1 tab(s), Oral, qHS Allergies Mushrooms(Severe) Throat swelling Peanuts(Severe) Throat swelling Rocephin(Severe) Hives cephalosporins(Severe) Anaphylaxis, Hives gabapentin (Moderate) psychotic breakdown Latex (Mild) Hives contrast media (gadolinium-based) penicillin Unknown vancomycin Social History Smoking Status - 02/26/2018 Never smoker Alcohol - Low Risk, 02/26/2018 Frequency: 1-2 times per year., 02/26/2018 Home/Environment Domestic Concerns: None. Living situation: Home/Independent. Safe place to go: Yes. Lives In: 1st floor bathroom. Current Home Treatments Blood Glucose monitoring., 04/24/2022 Nutrition/Health Type of diet: Diabetic. Appetite Good. Eating Difficulties None., 04/24/2022 Sexual Sexually active: Yes. Self described orientation: Straight or heterosexual., 04/24/2022 Substance Abuse - Denies Substance Abuse, 02/11/2017 Use: Never., 04/24/2022 Tobacco Nicotine Use: Never (less than 100 in lifetime)., 04/24/2022 Family History Cancer: Mother.Negative: Father, Sister, Brother, Daughter, Son and Grandparent. Diabetes: Mother. Stroke: Grandparent.Negative: Mother. Health Status Family Member(s) Immunizations No qualifying data available. Digitally Signed by COREEN JASMINE MD on 11/18/2023 12:58 PM [facility] [id number] History and physical note Date of Service 11/18/2023 Chief Complaint Left flank pain, foul-smelling urine, fever History of Present Illness 43-year-old female with past medical history significant for spina bifida, HLD, HTN, type 2 diabetes mellitus neurogenic bladder s/p suprapubic catheter, neurogenic bowel s/p colostomy, anxiety/depression, paroxysmal SVT, BLE edema, cervical radiculopathy, neuropathy, obesity, chronic pain, insomnia, migraine, recurrent UTIs with Pseudomonas, fatty liver, cervical spinal stenosis, recent admission for at [place] from 10/29/2013 11/02/2023 for UTI presented as a transfer from [facility] because of sepsis, UTI, splenic infarcts. Report from [place] ED physician was taken by my colleague overnight Patient stated that she has been having fever for 2 weeks, she was not feeling well since [facility], she went to [facility] on 11/07/23 and she was given Bactrim for 7 days. She has been having foul-smelling urine and purulent drainage and suprapubic catheter for 2 days. She has been having left flank pain for 2 days. She denies any cough, chest pain, abdominal pain. She has been having loose stools for the past 2 weeks. She sometimes has palpitations, hence takes propranolol as outpatient She follows up with urologist at [facility]. And suprapubic catheter will be exchanged by urologist at [facility] every 4 weeks, last exchange was on 10/31/2023 and due for exchange in 12/05/2023. In ED patient had temperature of 38.7, was tachycardic, WBC elevated to 11.5. Urinalysis concerning for infection Sodium [address] abdomen done which showed enlarging spleen with multiple suspected infarcts. Spleen size 15.2 cm and it was 12.8 cm previously. Patient was [facility] for [facility] management. Review of Systems As mentioned in HPI and all other systems reviewed and negative Physical Exam Vitals and Measurements T: 37 C (Oral) HR: 81 RR: 18 BP: 109/66 SpO2: 98% HT: 155 cm WT: 108.4 kg BMI: 45.12 Weight Dosing Weight: 108.4 kg (11/18/23) General Appearance: Patient appears healthy, well-developed, not in any acute distress. Cardiac: Normal rate and rhythm, S1-S2 heard, no murmurs heard. Lungs: Clear on auscultation bilaterally, no wheezes or rales. Abdomen: Mild tenderness left flank area and positive CVA tenderness. Purulent drainage in suprapubic catheter, colostomy in place Extremities: No pedal edema. Neurological: Alert ,oriented, chronic leg weakness from spina bifida Rash, no rashes noted Lab Results No 36 Hour Lab Data CBC, CMP ordered Labs at [place] reviewed Assessment/Plan #1 sepsis: Due to complicated UTI Blood cultures obtained in ED pending- 2. Left-sided pyonephritis, complicated UTI: Patient with purulent drainage in suprapubic catheter.Last exchange was on 10/31/2023. -Continue meropenem 1 g every 8 hours -Consult ID because of multiple antibiotic allergies , repeat admission, and failed outpatient antibiotic treatment 3. Neurogenic bladder with suprapubic catheter: -Consult urology for consideration of suprapubic catheter exchange 4. Splenic infarcts : Differential diagnosis include hypercoagulable state/A-fib -Monitor on telemetry -Continue heparin drip -Consult hematology for further evaluation and recommendation 5. Diarrhea: Check stool for C. difficile and stool GI panel 6. Insulin-dependent type 2 diabetes mellitus: Continue basal insulin, insulin sliding scale, [id number] 7. Neurogenic bowel status post colostomy 8. Paroxysmal SVT on propranolol 9. DVT px patient on heparin drip CODE STATUS discussed and she is full code Problem List/Past Medical History Ongoing Diabetes Neurogenic bladder disorder Recurrent UTI (urinary tract infection) Spina bifida Type 2 diabetes mellitus Urinary tract infection Procedure/Surgical History Suprapubic catheter procedure Colostomy Cholecystectomy Partial amputation of toe of left foot Umbilical hernia Back Medications Home Medications (12) Active atorvastatin 80 mg oral tablet 80 mg = 1 tab(s), Oral, Daily Cymbalta 30 mg oral delayed release capsule 30 mg = 1 cap(s), Oral, qDay DME MISCellaneous See Instructions Fiasp FlexTouch 100 units/mL injectable solution See Instructions Lantus 100 units/mL10 ml vial solution 33 unit(s), Subcutaneous, qHS Lasix 20 mg oral tablet 40 mg = 2 tab(s), Oral, qAM Lasix 20 mg oral tablet 20 mg = 1 tab(s), Oral, qPM lisinopril 2.5 mg oral tablet 2.5 mg = 1 tab(s), Oral, qDay oxybutynin 15 mg/24 hr oral tablet, extended release 15 mg = 1 tab(s), Oral, qPM pregabalin 75 mg oral capsule 75 mg = 1 cap(s), Oral, BID propranolol 20 mg oral tablet 10 mg = 0.5 tab(s), Oral, BID traZODone 100 mg oral tablet 100 mg = 1 tab(s), Oral, qHS Allergies Mushrooms(Severe) Throat swelling Peanuts(Severe) Throat swelling Rocephin(Severe) Hives cephalosporins(Severe) Anaphylaxis, Hives gabapentin (Moderate) psychotic breakdown Latex (Mild) Hives contrast media (gadolinium-based) penicillin Unknown vancomycin Social History Smoking Status - 02/26/2018 Never smoker Alcohol - Low Risk, 02/26/2018 Frequency: 1-2 times per year., 02/26/2018 Home/Environment Domestic Concerns: None. Living situation: Home/Independent. Safe place to go: Yes. Lives In: 1st floor bathroom. Current Home Treatments Blood Glucose monitoring., 04/24/2022 Nutrition/Health Type of diet: Diabetic. Appetite Good. Eating Difficulties None., 04/24/2022 Sexual Sexually active: Yes. Self described orientation: Straight or heterosexual., 04/24/2022 Substance Abuse - Denies Substance Abuse, 02/11/2017 Use: Never., 04/24/2022 Tobacco Nicotine Use: Never (less than 100 in lifetime)., 04/24/2022 Family History Cancer: Mother.Negative: Father, Sister, Brother, Daughter, Son and Grandparent. Diabetes: Mother. Stroke: Grandparent.Negative: Mother. Health Status Family Member(s) Immunizations No qualifying data available. Code Status No qualifying data available. Digitally Signed by ALTAGRACIA HARE MD on 11/18/2023 11:41 AM [facility] [id number] Note ORIGINAL EXAMINATION: CT OF THE ABDOMEN AND PELVIS WITH CONTRAST TECHNIQUE: CT of the abdomen and pelvis was performed with the administration of intravenous contrast. Multiplanar reformatted images are provided for review. Automated exposure control, iterative reconstruction, and/or weight based adjustment of the mA/kV was utilized to reduce the radiation dose to as low as reasonably achievable. COMPARISON: CT abdomen/pelvis 10/30/2023, 09/24/2023 HISTORY: ORDERING SYSTEM PROVIDED HISTORY: Reason for Exam: C/o left sided flank pain, fever. pain FINDINGS: LOWER THORAX: Imaged lungs are clear. No visible pericardial or pleural effusion. GI TRACT: The stomach is grossly normal. A left upper quadrant colostomy and bowel containing parastomal hernia are redemonstrated. No dilated segments of bowel. The rectal stump is unremarkable. SOLID ORGANS: The liver, pancreas, and adrenal glands are unremarkable. There are several linear and wedge-shaped hypodensities in the spleen which appears enlarged compared to the prior study, 15.2 cm compared to 12.8 cm previously. There is symmetric enhancement of the kidneys. Right lower pole nonobstructive nephrolithiasis. Extrarenal right pelvis. Similar scarring of the right kidney. Right renal cyst. No hydronephrosis. Suprapubic catheter decompresses the urinary bladder which chest small, presumably procedural related, air locules intraluminally. Stable left uterine fibroid. LYMPH/VASCULAR/MESENTERY: No abdominopelvic lymphadenopathy, free fluid, or free air. The portal and splenic veins are patent. There is no significant atherosclerotic disease of the aorta or celiac axis. SOFT TISSUES/BONES: Ventral abdominal wall hernia repair is noted. Moderate size fat containing umbilical hernia. No acute osseous abnormality. IMPRESSION: Enlarging spleen with multiple suspected infarcts. Other chronic and incidental findings as described. I have personally reviewed the images of this examination and agree with the resident's findings and interpretation. Interpreted by: Donavon Figueroa MD Preliminary Report By: Pérez Gonzalez Electronically signed By Donavon Figueroa MD Dictated Date: 11/18/2023 12:16:23 AM Prelim Date: 11/18/2023 12:33:31 AM Sign Date: 11/18/2023 1:18:41 AM Ordering Provider: [facility]06-21-2024 Note ORIGINAL EXAMINATION: ONE XRAY VIEW OF THE CHEST 11/17/2023 11:56 pm COMPARISON: AP chest radiograph 02/21/2023. HISTORY: ORDERING SYSTEM PROVIDED HISTORY: Reason for Exam: pain/fever FINDINGS: Low lung volumes. The lungs are without acute focal process. There is no effusion or pneumothorax. The cardiomediastinal silhouette is without acute process. The osseous structures are without acute process. IMPRESSION: No acute process. Interpreted by: Lencho Vidal Preliminary Report By: Lencho Vidal Electronically signed By Lencho Vidal Dictated Date: 11/18/2023 12:00:51 AM Prelim Date: 11/18/2023 12:01:19 AM Sign Date: 11/18/2023 12:01:19 AM [facility]ing [facility] Evaluation + Plan note Diagnostic Tests Pending * Urine Culture 11/17/[address] [facility] 06-13-2024 History of Present illness Narrative* Alicia Hu LPN - 11/09/2023 9:56 AM EDT Scan on 11/07/2023 10:58 PM by Melanie Simeon PA-C: Consultation - Emergency Medicine [facility] Hu LPN [facility] History of Present illness Narrative* Nubia Mccullough LPN - 11/07/2023 5:57 PM EDT Scan on 11/04/2023 11:30 PM by ProviderMelanie PA-C: Microbiology [facility] History of Present illness Narrative* Alicia Hu LPN - 11/07/2023 1:59 PM EDT Scan on 11/04/2023 11:30 PM by ProviderMelanie PA-C: Microbiology Alicia Hu LPN [facility] Hospital Discharge instructions Patient Education 11/02/2023 13:08:34 Blood Glucose Monitoring, Adult Blood Glucose Monitoring, Adult Monitoring your blood sugar (glucose) is an important part of managing your diabetes (diabetes mellitus). Blood glucose monitoring involves checking your blood glucose as often as directed and keeping a record (log) of your results over time. Checking your blood glucose regularly and keeping a blood glucose log can: Help you and your health care provider adjust your diabetes management plan as needed, including your medicines or insulin. Help you understand how food, exercise, illnesses, and medicines affect your blood glucose. Let you know what your blood glucose is at any time. You can quickly find out if you have low bloodglucose (hypoglycemia) or high blood glucose (hyperglycemia). Your health care provider will set individualized treatment goals for you. Your goals will be basedon your age, other medical conditions you have, and how you respond to diabetes treatment. Generally, the goal of treatment is to maintain the following blood glucose levels: Before meals (preprandial): 80 130 mg/dL (4.4 7.2 mmol/L). After meals (postprandial): below 180 mg/dL (10 mmol/L). A1c level: less than 7%. Supplies needed: Blood glucose meter. Test strips for your meter. Each meter has its own strips. You must use the strips that came with your meter. A needle to prick your finger (lancet). Do not use a lancet more than one time. A device that holds the lancet (lancing device). A journal or log book to write down your results. How to check your blood glucose 1.Wash your hands with soap and water. 2.Prick the side of your finger (not the tip) with the lancet. Use a different finger each time. 3.Gently rub the finger until a small drop of blood appears. 4.Follow instructions that come with your meter for inserting the test strip, applying blood to thestrip, and using your blood glucose meter. 5.Write down your result and any notes. Some meters allow you to use areas of your body other than your finger (alternative sites) to test your blood. The most common alternative sites are: Forearm. Thigh. Palm of the hand. If you think you may have hypoglycemia, or if you have a history of not knowing when your blood glucose is getting low (hypoglycemia unawareness), do not use alternative sites. Use your finger instead. Alternative sites may not be as accurate as the fingers, because blood flow is slower in these areas. This means that the result you get may be delayed, and it may be different from the result thatyou would get from your finger. Follow these instructions at home: Blood glucose log Every time you check your blood glucose, write down your result. Also write down any notes about things that may be affecting your blood glucose, such as your diet and exercise for the day. This information can help you and your health care provider: ?Look for patterns in your blood glucose over time. ?Adjust your diabetes management plan as needed. Check if your meter allows you to download your records to a computer. Most glucose meters store a record of glucose readings in the meter. If you have type 1 diabetes: Check your blood glucose 2 or more times a day. Also check your blood glucose: ?Before every insulin injection. ?Before and after exercise. ?Before meals. ?2 hours after a meal. ?Occasionally between 2:00 a.m. and 3:00 a.m., as directed. ?Before potentially dangerous tasks, like driving or using heavy machinery. ?At bedtime. You may need to check your blood glucose more often, up to 6 10 times a day, if you: ?Use an insulin pump. ?Need multiple daily injections (MDI). ?Have diabetes that is not well-controlled. ?Are ill. ?Have a history of severe hypoglycemia. ?Have hypoglycemia unawareness. If you have type 2 diabetes: If you take insulin or other diabetes medicines, check your blood glucose 2 or more times a day. If you are on intensive insulin therapy, check your blood glucose 4 or more times a day. Occasionally, you may also need to check between 2:00 a.m. and 3:00 a.m., as directed. Also check your blood glucose: ?Before and after exercise. ?Before potentially dangerous tasks, like driving or using heavy machinery. You may need to check your blood glucose more often if: ?Your medicine is being adjusted. ?Your diabetes is not well-controlled. ?You are ill. General tips Always keep your supplies with you. If you have questions or need help, all blood glucose meters have a 24-hour hotline phone number that you can call. You may also contact your health care provider. After you use a few boxes of test strips, adjust (calibrate) your blood glucose meter by following instructions that came with your meter. Contact a health care provider if: Your blood glucose is at or above 240 mg/dL (13.3 mmol/L) for 2 days in a row. You have been sick or have had a fever for 2 days or longer, and you are not getting better. You have any of the following problems for more than 6 hours: ?You cannot eat or drink. ?You have nausea or vomiting. ?You have diarrhea. Get help right away if: Your blood glucose is lower than 54 mg/dL (3 mmol/L). You become confused or you have trouble thinking clearly. You have difficulty breathing. You have moderate or large ketone levels in your urine. Summary Monitoring your blood sugar (glucose) is an important part of managing your diabetes (diabetes mellitus). Blood glucose monitoring involves checking your blood glucose as often as directed and keeping a record (log) of your results over time. Your health care provider will set individualized treatment goals for you. Your goals will be basedon your age, other medical conditions you have, and how you respond to diabetes treatment. Every time you check your blood glucose, write down your result. Also write down any notes about things that may be affecting your blood glucose, such as your diet and exercise for the day. This information is not intended to replace advice given to you by your health care provider. Make sure you discuss any questions you have with your health care provider. Document Released: 05/17/2004 Document Revised: 03/08/2019 Document Reviewed: 10/24/2016 [employer] Patient Education 2020 H.BLOOM. 11/02/2023 13:08:33 Blood Glucose Monitoring, Adult Blood Glucose Monitoring, Adult Monitoring your blood sugar (glucose) is an important part of managing your diabetes (diabetes mellitus). Blood glucose monitoring involves checking your blood glucose as often as directed and keeping a record (log) of your results over time. Checking your blood glucose regularly and keeping a blood glucose log can: Help you and your health care provider adjust your diabetes management plan as needed, including your medicines or insulin. Help you understand how food, exercise, illnesses, and medicines affect your blood glucose. Let you know what your blood glucose is at any time. You can quickly find out if you have low bloodglucose (hypoglycemia) or high blood glucose (hyperglycemia). Your health care provider will set individualized treatment goals for you. Your goals will be basedon your age, other medical conditions you have, and how you respond to diabetes treatment. Generally, the goal of treatment is to maintain the following blood glucose levels: Before meals (preprandial): 80 130 mg/dL (4.4 7.2 mmol/L). After meals (postprandial): below 180 mg/dL (10 mmol/L). A1c level: less than 7%. Supplies needed: Blood glucose meter. Test strips for your meter. Each meter has its own strips. You must use the strips that came with your meter. A needle to prick your finger (lancet). Do not use a lancet more than one time. A device that holds the lancet (lancing device). A journal or log book to write down your results. How to check your blood glucose 1.Wash your hands with soap and water. 2.Prick the side of your finger (not the tip) with the lancet. Use a different finger each time. 3.Gently rub the finger until a small drop of blood appears. 4.Follow instructions that come with your meter for inserting the test strip, applying blood to thestrip, and using your blood glucose meter. 5.Write down your result and any notes. Some meters allow you to use areas of your body other than your finger (alternative sites) to test your blood. The most common alternative sites are: Forearm. Thigh. Palm of the hand. If you think you may have hypoglycemia, or if you have a history of not knowing when your blood glucose is getting low (hypoglycemia unawareness), do not use alternative sites. Use your finger instead. Alternative sites may not be as accurate as the fingers, because blood flow is slower in these areas. This means that the result you get may be delayed, and it may be different from the result thatyou would get from your finger. Follow these instructions at home: Blood glucose log Every time you check your blood glucose, write down your result. Also write down any notes about things that may be affecting your blood glucose, such as your diet and exercise for the day. This information can help you and your health care provider: ?Look for patterns in your blood glucose over time. ?Adjust your diabetes management plan as needed. Check if your meter allows you to download your records to a computer. Most glucose meters store a record of glucose readings in the meter. If you have type 1 diabetes: Check your blood glucose 2 or more times a day. Also check your blood glucose: ?Before every insulin injection. ?Before and after exercise. ?Before meals. ?2 hours after a meal. ?Occasionally between 2:00 a.m. and 3:00 a.m., as directed. ?Before potentially dangerous tasks, like driving or using heavy machinery. ?At bedtime. You may need to check your blood glucose more often, up to 6 10 times a day, if you: ?Use an insulin pump. ?Need multiple daily injections (MDI). ?Have diabetes that is not well-controlled. ?Are ill. ?Have a history of severe hypoglycemia. ?Have hypoglycemia unawareness. If you have type 2 diabetes: If you take insulin or other diabetes medicines, check your blood glucose 2 or more times a day. If you are on intensive insulin therapy, check your blood glucose 4 or more times a day. Occasionally, you may also need to check between 2:00 a.m. and 3:00 a.m., as directed. Also check your blood glucose: ?Before and after exercise. ?Before potentially dangerous tasks, like driving or using heavy machinery. You may need to check your blood glucose more often if: ?Your medicine is being adjusted. ?Your diabetes is not well-controlled. ?You are ill. General tips Always keep your supplies with you. If you have questions or need help, all blood glucose meters have a 24-hour hotline phone number that you can call. You may also contact your health care provider. After you use a few boxes of test strips, adjust (calibrate) your blood glucose meter by following instructions that came with your meter. Contact a health care provider if: Your blood glucose is at or above 240 mg/dL (13.3 mmol/L) for 2 days in a row. You have been sick or have had a fever for 2 days or longer, and you are not getting better. You have any of the following problems for more than 6 hours: ?You cannot eat or drink. ?You have nausea or vomiting. ?You have diarrhea. Get help right away if: Your blood glucose is lower than 54 mg/dL (3 mmol/L). You become confused or you have trouble thinking clearly. You have difficulty breathing. You have moderate or large ketone levels in your urine. Summary Monitoring your blood sugar (glucose) is an important part of managing your diabetes (diabetes mellitus). Blood glucose monitoring involves checking your blood glucose as often as directed and keeping a record (log) of your results over time. Your health care provider will set individualized treatment goals for you. Your goals will be basedon your age, other medical conditions you have, and how you respond to diabetes treatment. Every time you check your blood glucose, write down your result. Also write down any notes about things that may be affecting your blood glucose, such as your diet and exercise for the day. This information is not intended to replace advice given to you by your health care provider. Make sure you discuss any questions you have with your health care provider. Document Released: 05/17/2004 Document Revised: 03/08/2019 Document Reviewed: 10/24/2016 [employer] Patient Education 2020 H.BLOOM. 11/02/2023 13:08:29 Diabetes Mellitus and Nutrition, Adult Diabetes Mellitus and Nutrition, Adult When you have diabetes (diabetes mellitus), it is very important to have healthy eating habits because your blood sugar (glucose) levels are greatly affected by what you eat and drink. Eating healthyfoods in the appropriate amounts, at about the same times every day, can help you: Control your blood glucose. Lower your risk of heart disease. Improve your blood pressure. Reach or maintain a healthy weight. Every person with diabetes is different, and each person has different needs for a meal plan. Your health care provider may recommend that you work with a diet and satellite specialist (dietitian) tomake a meal plan that is best for you. Your meal plan may vary depending on factors such as: The calories you need. The medicines you take. Your weight. Your blood glucose, blood pressure, and cholesterol levels. Your activity level. Other health conditions you have, such as heart or kidney disease. How do carbohydrates affect me? Carbohydrates, also called carbs, affect your blood glucose level more than any other type of food.Eating carbs naturally raises the amount of glucose in your blood. Carb counting is a method for keeping track of how many carbs you eat. Counting carbs is important to keep your blood glucose at a healthy level, especially if you use insulin or take certain oral diabetes medicines. It is important to know how many carbs you can safely have in each meal. This is different for every person. Your dietitian can help you calculate how many carbs you should have at each meal and for each snack. Foods that contain carbs include: Bread, cereal, rice, pasta, and crackers. Potatoes and corn. Peas, beans, and lentils. Milk and yogurt. Fruit and juice. Desserts, such as cakes, cookies, ice cream, and candy. How does alcohol affect me? Alcohol can cause a sudden decrease in blood glucose (hypoglycemia), especially if you use insulin or take certain oral diabetes medicines. Hypoglycemia can be a life-threatening condition. Symptoms of hypoglycemia (sleepiness, dizziness, and confusion) are similar to symptoms of having too much alcohol. If your health care provider says that alcohol is safe for you, follow these guidelines: Limit alcohol intake to no more than 1 drink per day for non women and 2 drinks per day formen. One drink equals 12 oz of beer, 5 oz of wine, or 1 oz of hard liquor. Do not drink on an empty stomach. Keep yourself hydrated with water, diet soda, or unsweetened iced tea. Keep in mind that regular soda, juice, and other mixers may contain a lot of sugar and must be counted as carbs. What are tips for following this plan? Reading food labels Start by checking the serving size on the Nutrition Facts label of packaged foods and drinks. Theamount of calories, carbs, fats, and other nutrients listed on the label is based on one serving ofthe item. Many items contain more than one serving per package. Check the total grams (g) of carbs in one serving. You can calculate the number of servings of carbs in one serving by dividing the total carbs by 15. For example, if a food has 30 g of total carbs, it would be equal to 2 servings of carbs. Check the number of grams (g) of saturated and trans fats in one serving. Choose foods that have low or no amount of these fats. Check the number of milligrams (mg) of salt (sodium) in one serving. Most people should limit totalsodium intake to less than 2,300 mg per day. Always check the nutrition information of foods labeled as low-fat or nonfat. These foods may be higher in added sugar or refined carbs and should be avoided. Talk to your dietitian to identify your daily goals for nutrients listed on the label. Shopping Avoid buying canned, premade, or processed foods. These foods tend to be high in fat, sodium, and added sugar. Shop around the outside edge of the grocery store. This includes fresh fruits and vegetables, bulk grains, fresh meats, and fresh dairy. Cooking Use low-heat cooking methods, such as baking, instead of high-heat cooking methods like deep frying. Cook using healthy oils, such as olive, canola, or sunflower oil. Avoid cooking with butter, cream, or high-fat meats. Meal planning Eat meals and snacks regularly, preferably at the same times every day. Avoid going long periods oftime without eating. Eat foods high in fiber, such as fresh fruits, vegetables, beans, and whole grains. Talk to your dietitian about how many servings of carbs you can eat at each meal. Eat 4 6 ounces (oz) of lean protein each day, such as lean meat, chicken, fish, eggs, or tofu. One oz of lean protein is equal to: ?1 oz of meat, chicken, or fish. ?1 egg. ? cup of tofu. Eat some foods each day that contain healthy fats, such as avocado, nuts, seeds, and fish. Lifestyle Check your blood glucose regularly. Exercise regularly as told by your health care provider. This may include: ?150 minutes of moderate-intensity or vigorous-intensity exercise each week. This could be brisk walking, biking, or water aerobics. ?Stretching and doing strength exercises, such as yoga or weightlifting, at least 2 times a week. Take medicines as told by your health care provider. Do not use any products that contain nicotine or tobacco, such as cigarettes and e-cigarettes. If you need help quitting, ask your health care provider. Work with a counselor or baker pie to identify strategies to manage stress and any emotional and social challenges. Questions to ask a health care provider Do I need to meet with a baker pie? Do I need to meet with a dietitian? What number can I call if I have questions? When are the best times to check my blood glucose? Where to find more information: [place] [employer] Association: diabetes.org Academy of Nutrition and Dietetics: www.eatright.org National [place] of Diabetes and Digestive and Kidney Diseases (NIH): www.niddk.nih.gov Summary A healthy meal plan will help you control your blood glucose and maintain a healthy lifestyle. Working with a diet and satellite specialist (dietitian) can help you make a meal plan that is bestfor you. Keep in mind that carbohydrates (carbs) and alcohol have immediate effects on your blood glucose levels. It is important to count carbs and to use alcohol carefully. This information is not intended to replace advice given to you by your health care provider. Make sure you discuss any questions you have with your health care provider. Document Released: 02/09/2006 Document Revised: 04/27/2018 Document Reviewed: 06/19/2017 [employer] Patient Education 2020 H.BLOOM. Follow Up Care 10/30/2023 22:57:51 With:WILL BRANNON MD Address: [address] [place] [address]- When:3-5 days Comments:Please call to schedule your post-hospital follow-up appointment. [facility] 06-06-2024 Note Discharge Instructions Thank you for allowing [facility] to assist you with your healthcare needs. The following is importantdischarge information regarding your hospital visit. Your Care Team [facility] Team Your Diagnosis Abdominal pain Bacteriuria Neurogenic bladder disorder Type 2 diabetes mellitus Urinary tract infection What to do next Instructions From Your Doctor You are admitted due to concern for UTI. Urine culture shows no growth. You did have a very mild kidney injury. Your Lasix was held and you were given IV fluids. You may resume Lasix 40 mg tomorrow. Please do not take the additional dose of Lasix 20 mg. You should also use your compression stockings routinely. Follow Up Appointments Follow Up with WILL BRANNON MD When:Within 3-5 days [facility] [facility] [place] [address] Additional Information: Please call to schedule your post-hospital follow-up appointment. The Following Activity and Diet Have Been Ordered for You Discharge Activity - Ordered -- Resume your pre-hospitalization activity, 11/02/23 12:57:00 EDT Discharge Diet - Ordered -- No changes were made to your diet during your hospital stay. Please resume your pre hospitalization diet on discharge., 11/02/23 12:57:00 EDT The Following Treatments Have Been Ordered for You Discharge Labs No qualifying data available. Discharge Radiology No qualifying data available. Other Therapies No qualifying data available. Post Acute Orders No qualifying data available. Someone Will Contact You Regarding These Home Health Referrals No home referrals have been ordered for you. No one will call you. Allergies Mushrooms(Severe) Throat swelling Peanuts(Severe) Throat swelling Rocephin(Severe) Hives cephalosporins(Severe) Anaphylaxis, Hives gabapentin (Moderate) psychotic breakdown Contrast dye (Mild) Vomiting Latex (Mild) Hives penicillin Unknown Medications Please ask your primary doctor or pharmacist before taking any other medication not listed, including over the counter drugs, herbal medications, vitamins and or supplements as they may interact withyour home medications. What How Much When Instructions Last Dose Changed furosemide (Lasix 20 mg oral tablet) 2 tab(s) by mouth Once a day (in the morning) Unchanged atorvastatin (atorvastatin 80 mg oral tablet) 1 tab(s) by mouth Every day 10/31 Unchanged DME (DME MISCellaneous) See instructions Sterile water, 40 syringes, 40 needles, alchohol swabs. Unchanged DULoxetine (Cymbalta 30 mg oral delayed release capsule) 1 cap by mouth Once a day Unchanged insulin aspart (Novolog) (Fiasp FlexTouch 100 units/ mL injectable solution) See instructions Sliding scale TIDAC 11/01 12p Unchanged insulin glargine (Lantus 100 units/ mL10 ml vial solution) 33 unit(s) Subcutaneous Daily at bedtime Unchanged lisinopril (lisinopril 2.5 mg oral tablet) 1 tab(s) by mouth Once a day 11/01 Unchanged oxybutynin (oxybutynin 15 mg/ 24 hr oral tablet, extended release) 1 tab(s) by mouth Once a day (in the evening) Unchanged pregabalin (pregabalin 75 mg oral capsule) 1 cap by mouth Two (2) times a day 11/01 Unchanged propranolol (propranolol 20 mg oral tablet) 0.5 tab(s) by mouth Two (2) times a day 11/01 Unchanged traZODone (traZODone 100 mg oral tablet) 1 tab(s) by mouth Daily at bedtime What How Much When Comments Stop Taking topiramate (topiramate 25 mg oral tablet) 1 tab(s) by mouth Daily at bedtime Please take this list to your next doctor s visit. Bring all medications you take, including over the counter medications, herbals and other supplements with you to your doctor s visit. Patients and families are reminded to discard old lists and to update any records with all medication providers or retail pharmacies. Education Materials Blood Glucose Monitoring, Adult Monitoring your blood sugar (glucose) is an important part of managing your diabetes (diabetes mellitus). Blood glucose monitoring involves checking your blood glucose as often as directed and keeping a record (log) of your results over time. Checking your blood glucose regularly and keeping a blood glucose log can: Help you and your health care provider adjust your diabetes management plan as needed, including your medicines or insulin. Help you understand how food, exercise, illnesses, and medicines affect your blood glucose. Let you know what your blood glucose is at any time. You can quickly find out if you have low bloodglucose (hypoglycemia) or high blood glucose (hyperglycemia). Your health care provider will set individualized treatment goals for you. Your goals will be basedon your age, other medical conditions you have, and how you respond to diabetes treatment. Generally, the goal of treatment is to maintain the following blood glucose levels: Before meals (preprandial): 80 130 mg/dL (4.4 7.2 mmol/L). After meals (postprandial): below 180 mg/dL (10 mmol/L). A1c level: less than 7%. Supplies needed: Blood glucose meter. Test strips for your meter. Each meter has its own strips. You must use the strips that came with your meter. A needle to prick your finger (lancet). Do not use a lancet more than one time. A device that holds the lancet (lancing device). A journal or log book to write down your results. How to check your blood glucose 1. Wash your hands with soap and water. 2. Prick the side of your finger (not the tip) with the lancet. Use a different finger each time. 3. Gently rub the finger until a small drop of blood appears. 4. Follow instructions that come with your meter for inserting the test strip, applying blood to the strip, and using your blood glucose meter. 5. Write down your result and any notes. Some meters allow you to use areas of your body other than your finger (alternative sites) to test your blood. The most common alternative sites are: Forearm. Thigh. Palm of the hand. If you think you may have hypoglycemia, or if you have a history of not knowing when your blood glucose is getting low (hypoglycemia unawareness), do not use alternative sites. Use your finger instead. Alternative sites may not be as accurate as the fingers, because blood flow is slower in these areas. This means that the result you get may be delayed, and it may be different from the result thatyou would get from your finger. Follow these instructions at home: Blood glucose log Every time you check your blood glucose, write down your result. Also write down any notes about things that may be affecting your blood glucose, such as your diet and exercise for the day. This information can help you and your health care provider: ? Look for patterns in your blood glucose over time. ? Adjust your diabetes management plan as needed. Check if your meter allows you to download your records to a computer. Most glucose meters store a record of glucose readings in the meter. If you have type 1 diabetes: Check your blood glucose 2 or more times a day. Also check your blood glucose: ? Before every insulin injection. ? Before and after exercise. ? Before meals. ? 2 hours after a meal. ? Occasionally between 2:00 a.m. and 3:00 a.m., as directed. ? Before potentially dangerous tasks, like driving or using heavy machinery. ? At bedtime. You may need to check your blood glucose more often, up to 6 10 times a day, if you: ? Use an insulin pump. ? Need multiple daily injections (MDI). ? Have diabetes that is not well-controlled. ? Are ill. ? Have a history of severe hypoglycemia. ? Have hypoglycemia unawareness. If you have type 2 diabetes: If you take insulin or other diabetes medicines, check your blood glucose 2 or more times a day. If you are on intensive insulin therapy, check your blood glucose 4 or more times a day. Occasionally, you may also need to check between 2:00 a.m. and 3:00 a.m., as directed. Also check your blood glucose: ? Before and after exercise. ? Before potentially dangerous tasks, like driving or using heavy machinery. You may need to check your blood glucose more often if: ? Your medicine is being adjusted. ? Your diabetes is not well-controlled. ? You are ill. General tips Always keep your supplies with you. If you have questions or need help, all blood glucose meters have a 24-hour hotline phone number that you can call. You may also contact your health care provider. After you use a few boxes of test strips, adjust (calibrate) your blood glucose meter by following instructions that came with your meter. Contact a health care provider if: Your blood glucose is at or above 240 mg/dL (13.3 mmol/L) for 2 days in a row. You have been sick or have had a fever for 2 days or longer, and you are not getting better. You have any of the following problems for more than 6 hours: ? You cannot eat or drink. ? You have nausea or vomiting. ? You have diarrhea. Get help right away if: Your blood glucose is lower than 54 mg/dL (3 mmol/L). You become confused or you have trouble thinking clearly. You have difficulty breathing. You have moderate or large ketone levels in your urine. Summary Monitoring your blood sugar (glucose) is an important part of managing your diabetes (diabetes mellitus). Blood glucose monitoring involves checking your blood glucose as often as directed and keeping a record (log) of your results over time. Your health care provider will set individualized treatment goals for you. Your goals will be basedon your age, other medical conditions you have, and how you respond to diabetes treatment. Every time you check your blood glucose, write down your result. Also write down any notes about things that may be affecting your blood glucose, such as your diet and exercise for the day. This information is not intended to replace advice given to you by your health care provider. Make sure you discuss any questions you have with your health care provider. Document Released: 05/17/2004 Document Revised: 03/08/2019 Document Reviewed: 10/24/2016 AMEE Patient Education 2020 H.[employer]OOM. Blood Glucose Monitoring, Adult Monitoring your blood sugar (glucose) is an important part of managing your diabetes (diabetes mellitus). Blood glucose monitoring involves checking your blood glucose as often as directed and keeping a record (log) of your results over time. Checking your blood glucose regularly and keeping a blood glucose log can: Help you and your health care provider adjust your diabetes management plan as needed, including your medicines or insulin. Help you understand how food, exercise, illnesses, and medicines affect your blood glucose. Let you know what your blood glucose is at any time. You can quickly find out if you have low bloodglucose (hypoglycemia) or high blood glucose (hyperglycemia). Your health care provider will set individualized treatment goals for you. Your goals will be basedon your age, other medical conditions you have, and how you respond to diabetes treatment. Generally, the goal of treatment is to maintain the following blood glucose levels: Before meals (preprandial): 80 130 mg/dL (4.4 7.2 mmol/L). After meals (postprandial): below 180 mg/dL (10 mmol/L). A1c level: less than 7%. Supplies needed: Blood glucose meter. Test strips for your meter. Each meter has its own strips. You must use the strips that came with your meter. A needle to prick your finger (lancet). Do not use a lancet more than one time. A device that holds the lancet (lancing device). A journal or log book to write down your results. How to check your blood glucose 1. Wash your hands with soap and water. 2. Prick the side of your finger (not the tip) with the lancet. Use a different finger each time. 3. Gently rub the finger until a small drop of blood appears. 4. Follow instructions that come with your meter for inserting the test strip, applying blood to the strip, and using your blood glucose meter. 5. Write down your result and any notes. Some meters allow you to use areas of your body other than your finger (alternative sites) to test your blood. The most common alternative sites are: Forearm. Thigh. Palm of the hand. If you think you may have hypoglycemia, or if you have a history of not knowing when your blood glucose is getting low (hypoglycemia unawareness), do not use alternative sites. Use your finger instead. Alternative sites may not be as accurate as the fingers, because blood flow is slower in these areas. This means that the result you get may be delayed, and it may be different from the result thatyou would get from your finger. Follow these instructions at home: Blood glucose log Every time you check your blood glucose, write down your result. Also write down any notes about things that may be affecting your blood glucose, such as your diet and exercise for the day. This information can help you and your health care provider: ? Look for patterns in your blood glucose over time. ? Adjust your diabetes management plan as needed. Check if your meter allows you to download your records to a computer. Most glucose meters store a record of glucose readings in the meter. If you have type 1 diabetes: Check your blood glucose 2 or more times a day. Also check your blood glucose: ? Before every insulin injection. ? Before and after exercise. ? Before meals. ? 2 hours after a meal. ? Occasionally between 2:00 a.m. and 3:00 a.m., as directed. ? Before potentially dangerous tasks, like driving or using heavy machinery. ? At bedtime. You may need to check your blood glucose more often, up to 6 10 times a day, if you: ? Use an insulin pump. ? Need multiple daily injections (MDI). ? Have diabetes that is not well-controlled. ? Are ill. ? Have a history of severe hypoglycemia. ? Have hypoglycemia unawareness. If you have type 2 diabetes: If you take insulin or other diabetes medicines, check your blood glucose 2 or more times a day. If you are on intensive insulin therapy, check your blood glucose 4 or more times a day. Occasionally, you may also need to check between 2:00 a.m. and 3:00 a.m., as directed. Also check your blood glucose: ? Before and after exercise. ? Before potentially dangerous tasks, like driving or using heavy machinery. You may need to check your blood glucose more often if: ? Your medicine is being adjusted. ? Your diabetes is not well-controlled. ? You are ill. General tips Always keep your supplies with you. If you have questions or need help, all blood glucose meters have a 24-hour hotline phone number that you can call. You may also contact your health care provider. After you use a few boxes of test strips, adjust (calibrate) your blood glucose meter by following instructions that came with your meter. Contact a health care provider if: Your blood glucose is at or above 240 mg/dL (13.3 mmol/L) for 2 days in a row. You have been sick or have had a fever for 2 days or longer, and you are not getting better. You have any of the following problems for more than 6 hours: ? You cannot eat or drink. ? You have nausea or vomiting. ? You have diarrhea. Get help right away if: Your blood glucose is lower than 54 mg/dL (3 mmol/L). You become confused or you have trouble thinking clearly. You have difficulty breathing. You have moderate or large ketone levels in your urine. Summary Monitoring your blood sugar (glucose) is an important part of managing your diabetes (diabetes mellitus). Blood glucose monitoring involves checking your blood glucose as often as directed and keeping a record (log) of your results over time. Your health care provider will set individualized treatment goals for you. Your goals will be basedon your age, other medical conditions you have, and how you respond to diabetes treatment. Every time you check your blood glucose, write down your result. Also write down any notes about things that may be affecting your blood glucose, such as your diet and exercise for the day. This information is not intended to replace advice given to you by your health care provider. Make sure you discuss any questions you have with your health care provider. Document Released: 05/17/2004 Document Revised: 03/08/2019 Document Reviewed: 10/24/2016 AMEE Patient Education 2020 [employer] Diabetes Mellitus and Nutrition, Adult When you have diabetes (diabetes mellitus), it is very important to have healthy eating habits because your blood sugar (glucose) levels are greatly affected by what you eat and drink. Eating healthyfoods in the appropriate amounts, at about the same times every day, can help you: Control your blood glucose. Lower your risk of heart disease. Improve your blood pressure. Reach or maintain a healthy weight. Every person with diabetes is different, and each person has different needs for a meal plan. Your health care provider may recommend that you work with a diet and satellite specialist (dietitian) tomake a meal plan that is best for you. Your meal plan may vary depending on factors such as: The calories you need. The medicines you take. Your weight. Your blood glucose, blood pressure, and cholesterol levels. Your activity level. Other health conditions you have, such as heart or kidney disease. How do carbohydrates affect me? Carbohydrates, also called carbs, affect your blood glucose level more than any other type of food.Eating carbs naturally raises the amount of glucose in your blood. Carb counting is a method for keeping track of how many carbs you eat. Counting carbs is important to keep your blood glucose at a healthy level, especially if you use insulin or take certain oral diabetes medicines. It is important to know how many carbs you can safely have in each meal. This is different for every person. Your dietitian can help you calculate how many carbs you should have at each meal and for each snack. Foods that contain carbs include: Bread, cereal, rice, pasta, and crackers. Potatoes and corn. Peas, beans, and lentils. Milk and yogurt. Fruit and juice. Desserts, such as cakes, cookies, ice cream, and candy. How does alcohol affect me? Alcohol can cause a sudden decrease in blood glucose (hypoglycemia), especially if you use insulin or take certain oral diabetes medicines. Hypoglycemia can be a life-threatening condition. Symptoms of hypoglycemia (sleepiness, dizziness, and confusion) are similar to symptoms of having too much alcohol. If your health care provider says that alcohol is safe for you, follow these guidelines: Limit alcohol intake to no more than 1 drink per day for non women and 2 drinks per day formen. One drink equals 12 oz of beer, 5 oz of wine, or 1 oz of hard liquor. Do not drink on an empty stomach. Keep yourself hydrated with water, diet soda, or unsweetened iced tea. Keep in mind that regular soda, juice, and other mixers may contain a lot of sugar and must be counted as carbs. What are tips for following this plan? Reading food labels Start by checking the serving size on the Nutrition Facts label of packaged foods and drinks. Theamount of calories, carbs, fats, and other nutrients listed on the label is based on one serving ofthe item. Many items contain more than one serving per package. Check the total grams (g) of carbs in one serving. You can calculate the number of servings of carbs in one serving by dividing the total carbs by 15. For example, if a food has 30 g of total carbs, it would be equal to 2 servings of carbs. Check the number of grams (g) of saturated and trans fats in one serving. Choose foods that have low or no amount of these fats. Check the number of milligrams (mg) of salt (sodium) in one serving. Most people should limit totalsodium intake to less than 2,300 mg per day. Always check the nutrition information of foods labeled as low-fat or nonfat. These foods may be higher in added sugar or refined carbs and should be avoided. Talk to your dietitian to identify your daily goals for nutrients listed on the label. Shopping Avoid buying canned, premade, or processed foods. These foods tend to be high in fat, sodium, and added sugar. Shop around the outside edge of the grocery store. This includes fresh fruits and vegetables, bulk grains, fresh meats, and fresh dairy. Cooking Use low-heat cooking methods, such as baking, instead of high-heat cooking methods like deep frying. Cook using healthy oils, such as olive, canola, or sunflower oil. Avoid cooking with butter, cream, or high-fat meats. Meal planning Eat meals and snacks regularly, preferably at the same times every day. Avoid going long periods oftime without eating. Eat foods high in fiber, such as fresh fruits, vegetables, beans, and whole grains. Talk to your dietitian about how many servings of carbs you can eat at each meal. Eat 4 6 ounces (oz) of lean protein each day, such as lean meat, chicken, fish, eggs, or tofu. One oz of lean protein is equal to: ? 1 oz of meat, chicken, or fish. ? 1 egg. ? cup of tofu. Eat some foods each day that contain healthy fats, such as avocado, nuts, seeds, and fish. Lifestyle Check your blood glucose regularly. Exercise regularly as told by your health care provider. This may include: ? 150 minutes of moderate-intensity or vigorous-intensity exercise each week. This could be brisk walking, biking, or water aerobics. ? Stretching and doing strength exercises, such as yoga or weightlifting, at least 2 times a week. Take medicines as told by your health care provider. Do not use any products that contain nicotine or tobacco, such as cigarettes and e-cigarettes. If you need help quitting, ask your health care provider. Work with a counselor or baker pie to identify strategies to manage stress and any emotional and social challenges. Questions to ask a health care provider Do I need to meet with a baker pie? Do I need to meet with a dietitian? What number can I call if I have questions? When are the best times to check my blood glucose? Where to find more information: [place] Diabetes Association: diabetes.org Academy of Nutrition and Dietetics: www.eatright.org National [place] of Diabetes and Digestive and Kidney Diseases (NIH): www.niddk.nih.gov Summary A healthy meal plan will help you control your blood glucose and maintain a healthy lifestyle. Working with a diet and satellite specialist (dietitian) can help you make a meal plan that is bestfor you. Keep in mind that carbohydrates (carbs) and alcohol have immediate effects on your blood glucose levels. It is important to count carbs and to use alcohol carefully. This information is not intended to replace advice given to you by your health care provider. Make sure you discuss any questions you have with your health care provider. Document Released: 02/09/2006 Document Revised: 04/27/2018 Document Reviewed: 06/19/2017 Elsevier Patient Education 2020 [employer] Inc. Additional Information VACCINATE! IT SAVES LIVES! Members of the community who have not yet received the COVID-19 vaccine and would like to receive it can visit one of [facility] vaccine clinics. There are many vaccine clinic locations within the [facility]. For locations and available times, please visit https://gettheshot.coronavirus.[place].gov/. It is important to note that some COVID mobile vaccine clinics are held outdoors and may be canceled in rainy or stormy conditions. To learn more about pediatric vaccinations (ages 5-11), we invite you to visit the [employer] webpage. [email or web address] learn more about the COVID-19 vaccine, we invite you to visit the CDC website for a list of frequently asked questions.https://www.cdc.gov/coronavirus/2019-ncov/vaccines/faq.html [employer] Patient Portal Access Instructions: Stay connected with your healthcare team and access your personal medical information anytime with the [employer] Patient Portal. Please follow the directions below to create your [employer] account: 1.Access the email account you provided upon registration to the hospital/physician office.2.Look for an invitation email from [facility].3.Open the email and access the invitation link: AcceptInvitation to [email or web address].Fill in the required hartley to create your account. To access your account, visit [facility] [employer]. Click the blue button labeled Access Patient Portal and then log in with the username and password that you created in the steps above. You will be able to view your test results, lab results, a summary of your visits, upcoming appointments and more. There is also a convenient messaging option where you can send secure messages to your p rovider. In addition, you will have the ability to download any documents or summaries to your computer and/or send the information securely to a physician. Remember that your healthcare information is confidential, so carefully consider who you will allowto register on the [facility] Patient Portal for access to your information. You can also access [facility] on the [facility]. Simply click on Patient Portal and then log into your account. If you would like to receive a full copy of your medical records, please contact the [facility] Medical Records Department by calling [phone], Monday through Monday between 8 a.m. and 4:30 p.m. HOW TO SAFELY DISPOSE OF PRESCRIPTION MEDICATIONS Please use one of the following methods to safely dispose of your unused medications. 1.Use a drug disposal kit: the drug disposal pouch allows you to safely discard your old and unuseddrugs. Ask your nurse to give you one when you are discharged.2.Visit a local take-back location: Many local pharmacies and police departments have programs that collect old and unwanted prescriptiondrugs. Call your local pharmacy or go to http://Bundle/9Q4Zy5r to find one close to you.3.Make use of household items: Use cat litter or old coffee grounds to dispose medications if other options arenot available. Mix your drugs with these household products, seal them in an airtight container andthrow it into the garbage. Call [facility]: [phone] to be sure your drugs can be disposed of in this way. Some medicines may require a different approach.4.Never flush your medications down the toilet. IF YOU HAVE BEEN PRESCRIBED AN OPIOID FOR PAIN If you have been prescribed an opioid (such as hydrocodone, oxycodone or morphine), it is critical to understand the possible side effects and risks of opioid pain medications. Even when taken as directed, opioids can have several side effects including: Tolerance, meaning you might need to take more of a medication for the same pain relief. Nausea, vomiting and/or constipation. Sleepiness, dizziness, dry mouth, confusion, depression or itching. Physical dependence, meaning you have withdrawal symptoms when a medication is stopped, can develop within a few days. KNOW YOUR RESPONSIBILITIES It is important to know exactly how much and how often to take the opioid pain medications you are prescribed. Never take opioids in higher amounts or more often than prescribed. Do not combine opioids with alcohol or other drugs that cause drowsiness, such as benzodiazepines, also known as benzos, including diazepam and alprazolam, muscle relaxants or sleep aids. Never sell or share prescription opioids. This is illegal. Store opioids in a secure place and out of reach of others (including children, family, friends and visitors). The last page of this document has been signed and retained as a CHART COPY. Signatures Patient Education Materials Blood Glucose Monitoring, Adult Blood Glucose Monitoring, Adult Diabetes Mellitus and Nutrition, Adult Medication Leaflets My discharge plan and instructions have been reviewed and explained to me and I,DEBBY BAILONd my current condition and have read and understand these discharge instructions. I have received a written copy of the plan/instructions. If I have questions, I am aware that I should contact my doctor. 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06-05-2024 Note Date of Service 11/01/2023 Chief Complaint lower abdominal pain Subjective Patient seen and evaluated this morning while resting in bed. She states that she is feeling betterthis morning. She continues to endorse lower abdominal pain but, admits that she has pain in that area all the time, but it is definitely worse with UTIs. She states she still has some mild nausea but was able to eat her breakfast without any vomiting. Patient advised that her urine culture is still pending. Patient was admitted at [facility] back in January and her urine culture was growing pseudomonas. She was discharged home on Aztreonam IM. Patient asked if that went well for her going home on IM injections and she stated that it did. She would be willing to do IM injections at home again if he r urine culture grows Pseudomonas. We should have the urine culture back by tomorrow. Patient reports that her does cath care at home for her and states that he does it routinely. Her urologist wants to do some type of procedure on her to eliminate the suprapubic catheter but wants her A1c lower before she can have that done. We checked an A1c this am and it was 11.2. Patient denies any fever, chills, cough, shortness of breath, chest pain, or dysuria. All questions answered. Objective Vitals and Measurements T: 36.8 C (Oral) TMIN: 36.8 C (Oral) TMAX: 37.6 C (Oral) HR: 72 (Monitored) RR: 16 BP: 96/60 SpO2: 93% Intake and Output 7AM Yesterday to 7AM Today Intake and Output (Last 24 hours) Intake Oral Intake 1310.00 Output Urinary Catheter Output: 2325.00 Total Summary Total Intake 1310.00 Total Output 2325.00 Fluid Balance -1015.00 Physical Exam General: No acute distress. Patient is alert, chronically ill-appearing. Skin: No rash. Skin is warm, dry and intact. HEENT: Head is normocephalic, atraumatic. Pupils are equal, round and reactive. Neck: Supple. No lymphadenopathy, thyromegaly. Lungs: Bilaterally clear but diminished without crepitation or wheeze. Unlabored. Heart: Heart is regular rhythm, S1, S2. No murmurs, gallops or rubs. Abdomen: Abdomen is soft, tender to palpation. Bowels sounds present in all quadrants. Suprapubic catheter noted to midline. Colostomy bag in LLQ. Extremities: No clubbing, cyanosis, or edema. Peripheral pulses palpable. No calf tenderness. Neurological: Patient is awake and alert to person, place and time. Following simple commands, moving all extremities. Weight Current Weight Dosing Weight: 97.5 kg (10/31/23) Current Weight: 99.6 kg (10/31/23) Dosing Weight: 97.5 kg (10/30/23) Medications Medications (20) Active Scheduled: (14) atorvastatin 40 mg tablet 80 mg 2 tab(s), Oral, Daily duloxetine [address] capsule 30 mg 1 cap(s), Oral, qDay enoxaparin 40 mg/ 0.4mL syringe 40 mg 0.4 mL, Subcutaneous, qDay furosemide 20 mg tablet 20 mg 1 tab(s), Oral, qPM furosemide 40 mg tablet 40 mg 1 tab(s), Oral, qAM insulin glargine 100 units/ml solution 33 unit(s) 0.33 mL, Subcutaneous, qHS insulin lispro 100 units/mL Soln (3 mL) Give 0-10 units/dose, Subcutaneous, TIDAC lisinopril 5 mg tablet 2.5 mg 0.5 tab(s), Oral, qDay meropenem 1,000 mg, IV Piggyback, q8hr oxybutynin 5 mg ER tablet 15 mg 3 tab(s), Oral, qPM pregabalin 25 mg capsule 75 mg 3 cap(s), Oral, BID propranolol 20 mg tablet 10 mg 0.5 tab(s), Oral, BID topiramate 25 mg Tablet 25 mg 1 tab(s), Oral, qHS traZODONE 50 mg Tablet 100 mg 2 tab(s), Oral, qHS Continuous: (0) PRN: (6) acetaminophen 325 mg Tablet 650 mg 2 tab(s), Oral, q4h acetaminophen-OXYcodone 325 mg-5 mg Tablet 1 tab(s), Oral, q6h albuterol - ipratropium 2.5 mg-0.5 mg/3 mL Inhal Michelle UD 3 mL, Inhalation, q4hRT guaifenesin 100 mg/5 mL Liquid SUGAR-FREE 120 mL 200 mg 10 mL, Oral, q4h ondansetron 2 mg/ 1 mL 2 mL INJ 4 mg 2 mL, IV Push, q4h polyethylene glycol 3350 - UD packet 17 gram(s) 15 mL, Oral, qDay Lab Results 10/31 05:42 WBC: 6.5 Hgb: 12.7 Hct: 37.2 Platelet: 131 Glucose Level: 148 H Sodium Level: 139 Potassium Level: 4.3 BUN: 9 Creatinine Lvl (s): 0.86 10/30 05:46 WBC: 5.9 Hgb: 12.4 Hct: 36.8 L Platelet: 144 Neutrophil %: 43.7 Glucose Level: 202 H Sodium Level: 138 Potassium Level: 4.2 BUN: 12 Creatinine Lvl (s): 0.88 10/29 23:34 WBC: 6.6 Hgb: 13.5 Hct: 39.4 Platelet: 160 Neutrophil %: 47.7 Glucose Level: 282 H Sodium Level: 137 Potassium Level: 3.9 BUN: 14 Creatinine Lvl (s): 1.08 H Imaging Results and Diagnostics CT Abdomen/Pelvis w/o Contrast Result Date: October 30, 2023 Verified By: XAVIER BRIONES MD CLINICAL STATEMENT: IMPRESSION: 1. No acute intra-abdominal or pelvic process. 2. Stable chronic findings as above. EKG No qualifying data available. Assessment/Plan 1. Urinary tract infection Acute on chronic, accompanied by nausea, lower abdominal pain and flank pain, improved this morning. CT of the a/p negative for anything acute. Urinalysis appears infected but then also looks the same as the multiple previous UAs. Patient was positive for pseudomonas twice in 2022 and had one urineculture that showed greater than 100,000 multiple bacterial morphotypes this year. Will continue meropenem 1000 grams IV q8 hours pending urine culture results. Patient did discharge on IM aztreonam back in January 2023 so that will be an option vs PICC line placement. Patient prefers IM injections for homegoing. Patient has seen Dr. Ngo, ID, at [facility] in the past. Suprapubic catheter changed yesterday as she was due to have it changed anyway. No leukocytosis. 2. Type 2 diabetes mellitus Chronic, uncontrolled. UA demonstrated glucose greater than 1000. HgbA1c 11.2%. Continue ADA diet. Blood glucose checks before meals and at bedtime. Cover with corrective sliding scale insulin. Bloodglucose goal of 180 or less and avoid hypoglycemia. 3. Neurogenic bladder disorder Chronic. Changed out suprapubic catheter yesterday. Educate patient on good cath care to prevent infection. She states that her takes care of it at home. Patient reports that urology wants todo some type of surgery on her but wants her A1c to be lower before they do. DVT prophylaxis with Lovenox sc. Code status: Full Code. Labs, diagnostic test and progress notes reviewed as noted in HPI. Plan of care discussed with patient. All questions answered. Patient verbalizes understanding and is agreeable with plan of care. This case was discussed with collaborating physician, Dr. Jc Retana. Anticipated Date of Discharge next 24-48 hours Time Spent 35 minutes spent reviewing past diagnostic tests, reviewing lab results, vital sign trends, medicalhistory, reviewing medications and ordering home medications, examining patient, discussed plan of care with care team, collaborating with physician, and documenting in chart. Digitally Signed by ARIANNA RICO on 11/01/2023 09:30 AM [facility] [id number] Evaluation + Plan noteExtracted from: Title:History and Physical Author:ARIANNA RICO Date:10/31/23 1. Urinary tract infection Acute on chronic, accompanied by nausea, lower abdominal pain and flank pain. CT of the a/p negative for anything acute. Urinalysis appears infected but then also looks the same as the multiple previous UAs. Patient was positive for pseudomonas twice in 2022 and had one urine culture that showed greater than 100,000 multiple bacterial morphotypes this year. Will continue meropenem 1000 grams IV q8 hours pending urine culture results. Patient did discharge on IM aztreonam back in January 2023 so that will be an option vs PICC line placement. Patient has seen Dr. Ngo, ID, at [facility] in the past. Will change out suprapubic catheter today as she was due to have it changed today anyway and it is emitting a foul odor. 2. Type 2 diabetes mellitus Chronic, uncontrolled. UA demonstrated glucose greater than 1000. Will check HgbA1c. Continue ADA diet. Blood glucose checks before meals and at bedtime. Cover with corrective sliding scale insulin. Blood glucose goal of 180 or less and avoid hypoglycemia. 3. Neurogenic bladder disorder Chronic. Change out suprapubic catheter today. Educate patient on good cath care to prevent infection. DVT prophylaxis with Lovenox sc. Code status: Full Code. Labs, diagnostic test and progress notes reviewed as noted in HPI. Plan of care discussed with patient. All questions answered. Patient verbalizes understanding and is agreeable with plan of care. This case was discussed with collaborating physician, Dr. Jc Retana. 75 minutes spent reviewing past diagnostic tests, reviewing lab results, vital sign trends, medical history, reviewing medications and ordering home medications, examining patient, discussed plan of care with care team, reviewed notes from multiple previous ED visits and admissions, collaborating with physician, and documenting in chart. I have reviewed the [place] Automated Rx Reporting System report for this patient for refill pattern and other prescriber involvement as part of the appropriate surveillance for the provision of acute and chronic controlled medication. The report was requested and reviewed on the date of this entry and was considered in the prescribing process. Diagnostic Tests Pending * Urine Culture 11/02/[address] [facility] 06-04-2024 Note Date of Service 10/31/2023 Chief Complaint c/o abdominal and flank pain. Pt states she feels like she has a uti from her suprapubic catheter. Pt states she gets frequent utis History of Present Illness Patient is a 42-year-old female, who follows with Dr. Will Brannon with a past medical history significant for type 2 diabetes, spina bifida, neurogenic bladder disorder with suprapubic catheter, and recurrent UTIs often growing pseudomonas, presented to [facility] emergency department with the chief complaint of abdominal pain and flank pain. Patient has had frequent presentations to the ED and this appears to be the fifth presentation so far this year for flank and abdominal pain. She does have a history of pseudomonas UTI twice last year. One culture done so far this year was growing greater than 100,000 multiple bacterial morphotypes. She is likely colonized with bacteria due to her longstanding suprapubic catheter and poor care of it. Patient appears to be very unkempt with a strong body odor this morning. She had stated in previous admissions that she only showersa few times a week. She states that she was due to have her suprapubic catheter changed by her doctor's office today. Patient has seen Dr. Ngo, ID, at [facility] for her recurrent UTIs. She had a low-grade fever on arrival to the ED but none since. She denies any chills, cough, shortness of breath, chest pain, or diarrhea. She reported that her abdominal pain went from 7 to 9 with palpation of her lower abdomen. She also reports some mild nausea. In the emergency department, CT of the abdomen/pelvis revealed no acute intra- abdominal or pelvic process; stable chronic findings. CBC was unremarkable. BMP significant for glucose 282 and creatinine 1.08. Urinalysis significant for greater than 1000 glucose, trace blood, 100 protein, small leukocyte esterace, urine RBC 0-5, urine WBC 15-25 and 1+ blood. Urine culture sent and pending. Patient was administered 1 liter of NS, 4 mg Zofran IV x 2, 4 mg morphine IV x 2 and 500 mg Meropenem IV in the ED. The case was discussed with the ED physician who recommended admission due to past infectionswith resistant bacteria and systemic symptoms. Patient was transferred to medical surgical unit for observation. We will continue meropenem 1000 mg IV q8 hours. We will continue NS @ 125cc/hr x 2 bags. Discussed with patient going home with a PICC line but it appears that in 01/2023 she went home onIM aztreonam. We will change out the suprapubic catheter today as patient was due to have it changed today and it is giving off a foul odor. Follow urine culture. Repeat CBC and BMP in the am. Patient seen and evaluated this morning while resting in bed. She states that she is still having severe lower abdominal pain, worse after her abdomen was palpated, and would like something stronger for pain. Will cautiously start 1 tab Percocet PO q6 hours PRN for severe pain. Again, patient appears to be very unkempt with greasy-appearing hair and a foul odor. Physical exam unremarkable except for abdominal pain with palpation, no guarding noted. Discussed plan of care with patient and she was agreeable with this. All questions answered. Review of Systems Review of Systems: Reviewed in detail, including general health, HEENT, cardiovascular, respiratory, gastrointestinal, genitourinary, endocrine, musculoskeletal, neurologic, vascular, skin, and psychiatric. All are negative except for those listed in the History of Present Illness. Physical Exam Vitals and Measurements T: 36.9 C (Oral) TMIN: 36.9 C (Oral) TMAX: 37.4 C (Oral) HR: 68 (Monitored) RR: 16 BP: 123/72 SpO2:94% HT: 155 cm WT: 99.6 kg BMI: 40.58 Weight Current Weight Dosing Weight: 97.5 kg (10/31/23) Current Weight: 99.6 kg (10/31/23) Dosing Weight: 97.5 kg (10/30/23) General: No acute distress. Patient is alert, chronically ill-appearing, unkempt. Skin: No rash. Skin is warm, dry and intact. HEENT: Head is normocephalic, atraumatic. Pupils are equal, round and reactive. Neck: Supple. No lymphadenopathy, thyromegaly. Lungs: Bilaterally clear but diminished without crepitation or wheeze. Unlabored. Heart: Heart is regular rhythm, S1, S2. No murmurs, gallops or rubs. Abdomen: Abdomen is soft, tender to palpation across lower quadrants, no guarding noted. Bowels sounds present in all quadrants. Extremities: No clubbing, cyanosis; mild generalized BLE. Peripheral pulses palpable. No calf tenderness. Neurological: Patient is awake and alert to person, place and time. Following simple commands, moving all extremities. Lab Results 10/30 05:46 WBC: 5.9 Hgb: 12.4 Hct: 36.8 L Platelet: 144 Neutrophil %: 43.7 Glucose Level: 202 H Sodium Level: 138 Potassium Level: 4.2 BUN: 12 Creatinine Lvl (s): 0.88 10/29 23:34 WBC: 6.6 Hgb: 13.5 Hct: 39.4 Platelet: 160 Neutrophil %: 47.7 Glucose Level: 282 H Sodium Level: 137 Potassium Level: 3.9 BUN: 14 Creatinine Lvl (s): 1.08 H Imaging Results and Diagnostics CT Abdomen/Pelvis w/o Contrast Result Date: October 30, 2023 Verified By: XAVIER BRIONES MD CLINICAL STATEMENT: IMPRESSION: 1. No acute intra-abdominal or pelvic process. 2. Stable chronic findings as above. Assessment/Plan 1. Urinary tract infection Acute on chronic, accompanied by nausea, lower abdominal pain and flank pain. CT of the a/p negative for anything acute. Urinalysis appears infected but then also looks the same as the multiple previous UAs. Patient was positive for pseudomonas twice in 2022 and had one urine culture that showed greater than 100,000 multiple bacterial morphotypes this year. Will continue meropenem 1000 grams IV q8 hours pending urine culture results. Patient did discharge on IM aztreonam back in January 2023 so that will be an option vs PICC line placement. Patient has seen AMINA Hamilton, at [facility] in the past. Will change out suprapubic catheter today as she was due to have it changed today anyway and it is emitting a foul odor. 2. Type 2 diabetes mellitus Chronic, uncontrolled. UA demonstrated glucose greater than 1000. Will check HgbA1c. Continue ADA diet. Blood glucose checks before meals and at bedtime. Cover with corrective sliding scale insulin. Blood glucose goal of 180 or less and avoid hypoglycemia. 3. Neurogenic bladder disorder Chronic. Change out suprapubic catheter today. Educate patient on good cath care to prevent infection. DVT prophylaxis with Lovenox sc. Code status: Full Code. Labs, diagnostic test and progress notes reviewed as noted in HPI. Plan of care discussed with patient. All questions answered. Patient verbalizes understanding and is agreeable with plan of care. This case was discussed with collaborating physician, Dr. Jc Retana. 75 minutes spent reviewing past diagnostic tests, reviewing lab results, vital sign trends, medicalhistory, reviewing medications and ordering home medications, examining patient, discussed plan of care with care team, reviewed notes from multiple previous ED visits and admissions, collaborating with physician, and documenting in chart. I have reviewed the [place] Automated Rx Reporting System report for this patient for refill pattern and other prescriber involvement as part of the appropriate surveillance for the provision of acute and chronic controlled medication. The report was requested and reviewed on the date of this entry and was considered in the prescribing process. Problem List/Past Medical History Ongoing Diabetes Neurogenic bladder disorder Recurrent UTI (urinary tract infection) Spina bifida Type 2 diabetes mellitus Urinary tract infection Procedure/Surgical History Suprapubic catheter procedure Colostomy Cholecystectomy Umbilical hernia Back Medications Home Medications (13) Active atorvastatin 80 mg oral tablet 80 mg = 1 tab(s), Oral, Daily Cymbalta 30 mg oral delayed release capsule 30 mg = 1 cap(s), Oral, qDay DME MISCellaneous See Instructions Fiasp FlexTouch 100 units/mL injectable solution See Instructions Lantus 100 units/mL10 ml vial solution 33 unit(s), Subcutaneous, qHS Lasix 20 mg oral tablet 40 mg = 2 tab(s), Oral, qAM Lasix 20 mg oral tablet 20 mg = 1 tab(s), Oral, qPM lisinopril 2.5 mg oral tablet 2.5 mg = 1 tab(s), Oral, qDay oxybutynin 15 mg/24 hr oral tablet, extended release 15 mg = 1 tab(s), Oral, qPM pregabalin 75 mg oral capsule 75 mg = 1 cap(s), Oral, BID propranolol 20 mg oral tablet 10 mg = 0.5 tab(s), Oral, BID topiramate 25 mg oral tablet 25 mg = 1 tab(s), Oral, qHS traZODone 100 mg oral tablet 100 mg = 1 tab(s), Oral, qHS Allergies Mushrooms(Severe) Throat swelling Peanuts(Severe) Throat swelling Rocephin(Severe) Hives cephalosporins(Severe) Anaphylaxis, Hives gabapentin (Moderate) psychotic breakdown Contrast dye (Mild) Vomiting Latex (Mild) Hives penicillin Unknown Social History Smoking Status - 02/26/2018 Never smoker Alcohol - Low Risk, 02/26/2018 Frequency: 1-2 times per year., 02/26/2018 Home/Environment Domestic Concerns: None. Living situation: Home/Independent. Safe place to go: Yes. Lives In: 1st floor bathroom. Current Home Treatments Blood Glucose monitoring., 04/24/2022 Nutrition/Health Type of diet: Diabetic. Appetite Good. Eating Difficulties None., 04/24/2022 Sexual Sexually active: Yes. Self described orientation: Straight or heterosexual., 04/24/2022 Substance Abuse - Denies Substance Abuse, 02/11/2017 Use: Never., 04/24/2022 Tobacco Nicotine Use: Never (less than 100 in lifetime)., 04/24/2022 Family History Cancer: Mother.Negative: Father, Sister, Brother, Daughter, Son and Grandparent. Diabetes: Mother. Stroke: Grandparent.Negative: Mother. Health Status Family Member(s) Immunizations No qualifying data available. Code Status Code Status - Ordered -- 10/31/23 1:34:00 EDT, Full Code, Constant Order Digitally Signed by ARIANNA RICO on 10/31/2023 11:[address] [facility]06-04-2024 Telephone encounter Note* Telephone Encounter - Demarcus Sterling - 10/31/2023 8:19 AM EDT General Call Caller : pt Contact Reason for Call : Pt would like to discuss surgery. Pt missed appt after being admitted to hospitalthe night before. Patient requesting return call ? Yes [facility]06-04-2024 Note ORIGINAL EXAMINATION: CT OF THE ABDOMEN AND PELVIS WITHOUT CONTRAST 10/31/2023 12:22 am TECHNIQUE: CT of the abdomen and pelvis was performed without the administration of intravenous contrast. Multiplanar reformatted images are provided for review. Automated exposure control, iterative reconstruction, and/or weight based adjustment of the mA/kV was utilized to reduce the radiation dose to as low as reasonably achievable. COMPARISON: 09/24/2023 HISTORY: ORDERING SYSTEM PROVIDED HISTORY: Reason for Exam: abdominal pain FINDINGS: Lower Chest: Normal heart size. No focal consolidation or pleural effusion. Organs: The liver and biliary tract appears normal. The spleen appears normal. The pancreas appears normal. The adrenal glands appear normal. Nonobstructive right nephrolithiasis. Stable right renal cyst and scarring. No hydronephrosis. GI/Bowel: There is a redemonstrated ostomy in the left anterior abdominal wall with wide neck parastomal hernia containing loops of large and small bowel with no evidence of obstruction. Stable changes of bowel resection. The appendix is not seen however there are no pericecal inflammatory changes. Pelvis: There is a stable suprapubic catheter. Peritoneum/Retroperitoneum: There is no intraperitoneal free air or ascites. The aorta and its major branches appear normal. No lymphadenopathy is identified. Bones/Soft Tissues: Degenerative changes are noted in the spine. Postsurgical changes are again noted at the lumbosacral junction. Stable postsurgical changes of hernia repair in the ventral abdominal wall. IMPRESSION: 1. No acute intra-abdominal or pelvic process. 2. Stable chronic findings as above. Interpreted by: Xavier Briones Preliminary Report By: Xavier Briones Electronically signed By Xavier Briones Dictated Date: 10/31/2023 12:23:35 AM Prelim Date: 10/31/2023 12:29:29 AM Sign Date: 10/31/2023 12:29:29 AM Ordering Provider: [facility]05-17-2024 History of Present illness Narrative* Michele Cardozo RN - 10/13/2023 11:11 AM EDT Called and spoke with patient via phone. Pt states that she was unable to get an appointment with her mud analysis well logging operator prior to surgery. Her appointment is 10/30 and while she was offered sooner appointment, she did not have transportation. This RN stated that pt needed to have BS under 200 for surgery and pt replied that it could be under 220 if she took her insulin the night before. This RN stated that they may require a trend of lower blood sugars or a lower A1c. This RN stated that she would reach out to [facility] and find out the specific requirements. Pt verbalized understanding. [facility] Telephone encounter Note * Telephone Encounter - Rosalina Doherty RN - 10/12/2023 3:[address]Toni Monson in [place] re appt. ([facility])- to see if pt. can be seen pre op. Left detailed message on nurse line. [facility]05-16-2024 Miscellaneous Notes* Telephone Encounter - Rosalina Doherty RN - 10/12/2023 3:[address]Toni Monson in [place] re appt. ([facility])- to see if pt. can be seen pre op. Left detailed message on nurse line. * Telephone Encounter - Will Brannon MD - 10/12/2023 2:[address] Adi oMnson is not an mud analysis well logging operator with [facility] she is a provider here in [place]. You need tocall her office and speak with one of her nusres. * Telephone Encounter - Will Brannon MD - 10/11/2023 1:59 PM EDT Patient sees Dr. Adi Monson (Endocrinology) in [place] for the management of her diabetes. I would advise reaching out to her office and reviewing your concerns with one of her nursing staff. * Telephone Encounter - Zainab Zendejas APRN.CNP - 10/11/2023 1:18 PM EDT Discussed with Dr. Slater anesthesiologist, advised to try to control BS prior to surgery. Concerned with risk of DKA intra-op, post op infection d/t high BS. Advised to try to move endocrine appt earlier if possible. If not, can PCP add any other medications prior to surgery to hopefully improve BS pre op? Goal is to be below 200 if possible prior to surgery. Please let us know, thank you. Zainab Zendejas APRN.CNP * Telephone Encounter - Zainab Zendejas APRN.CNP - 10/11/2023 10:02 AM EDT Saud I saw this mutual patient in [facility] on 10/11/2023. Debby Alvarenga Uvaldo is scheduled for LUMBAR LAMINECTOMY REVISION L3-L5 W/ RELEASE OF TETHERED SPINAL CORD with on 10/20/2023. I wanted to reach out regarding the pts hx of DM, has elevated A1C of 11.8% currently. Reports her fasting BS are low 200s, but does not check regularly. Per anesthesia guidelines, the blood sugar should be below 200 for surgery. She has a f/u with endocrine, but not until after her surgery. Thank you, Zainab RILEY, APPLICATION SUPPORT DEVELOPER-BURIAL AGENT [facility] documented in this encounterOur [facility]05-[facility] Telephone encounter Note * Telephone Encounter - AngeMarina castellanossavannah Alvarenga - 10/12/2023 2:[address] Johnson and Nilda Underwood CNP do not have any sooner openings in the [place] office prior to Pt's surgery date of 10/20/2023. I apologize for the inconvenience. Tracy Mccormick RN [place] [facility] Work Phone: [phone] Miscellaneous Notes* Telephone Encounter - Ange, Lurdes Alvarenga - 10/12/2023 2:[address] Johnson and Nilda Underwood CNP do not have any sooner openings in the [place] office prior to Pt's surgery date of 10/20/2023. I apologize for the inconvenience. Tracy Mccormick RN [place] [facility] * Telephone Encounter - Brittney Zafar RN - 10/12/2023 1:24 PM EDT Lurdes from [facility] contacts office to ask if patient can be seen sooner than her appointment on 10/30.She is scheduled for surgery on 10/19 and PAC wants her seen prior to surgery if possible. [facility] * Telephone Encounter - Will Brannon MD - 10/12/2023 2:03 PM EDT VOLODYMYR Monson is not an mud analysis well logging operator with [facility] she is a provider here in [place]. You need tocall her office and speak with one of her nusres. [facility] Telephone encounter Note* Telephone Encounter - Brittney Zafar RN - 10/12/2023 1:24 PM EDT Lurdes from [facility] contacts office to ask if patient can be seen sooner than her appointment on 10/30.She is scheduled for surgery on 10/19 and PAC wants her seen prior to surgery if possible. [facility] Telephone encounter Note* Telephone Encounter - Will Brannon MD - 10/11/2023 1:59 PM EDT Patient sees Dr. Adi Monson (Endocrinology) in [place] for the management of her diabetes. I would advise reaching out to her office and reviewing your concerns with one of her nursing staff. [facility] Telephone encounter Note* Telephone Encounter - Zainab Zendejas APRN.CNP - 10/11/2023 1:18 PM EDT Discussed with Dr. Slater anesthesiologist, advised to try to control BS prior to surgery. Concerned with risk of DKA intra-op, post op infection d/t high BS. Advised to try to move endocrine appt earlier if possible. If not, can PCP add any other medications prior to surgery to hopefully improve BS pre op? Goal is to be below 200 if possible prior to surgery. Please let us know, thank you. Zainab Zendejas APRN.BURIAL AGENT [facility] Telephone encounter Note* Telephone Encounter - Zainab Zendejas APRN.CNP - 10/11/2023 10:02 AM EDT Saud, I saw this mutual patient in [facility] on 10/11/2023. Debby Bailon is scheduled for LUMBAR LAMINECTOMY REVISION L3-L5 W/ RELEASE OF TETHERED SPINAL CORD with on 10/20/2023. I wanted to reach out regarding the pts hx of DM, has elevated A1C of 11.8% currently. Reports her fasting BS are low 200s, but does not check regularly. Per anesthesia guidelines, the blood sugar should be below 200 for surgery. She has a f/u with endocrine, but not until after her surgery. Thank you, Zainab RILEY, APPLICATION SUPPORT DEVELOPER-BURIAL AGENT [facility] Instructions* Patient Instructions* Zainab Zendejas APRN.CNP - 10/11/2023 9:19 AM EDT PATIENT PREOPERATIVE INSTRUCTIONS No ref. provider found has scheduled you for your procedure at this surgery center: [facility] Scheduling Office: [phone] --[address] [place] [address]. Please read below carefully for your personalized instructions. Arrival Time for Surgery: - To obtain your arrival time for surgery, call your physician's office the day before your surgery. - If your surgery is scheduled for Monday, call the Monday before. Your surgeon s personnel scheduler will tell you what time to call the office. - If you have not reached the departmental personnel scheduler by 5 P.M., call [phone] after 5 P.M. the day before your surgery. Dietary Restrictions: - No solid food after midnight. - You may have 12 ounces of clear liquids (water, clear juices such as apple juice or gatorade, carbonated beverages, clear tea, black coffee, jello) until 2 hours before scheduled arrival at facility. - Do not drink any alcohol after midnight the night before your surgery. Medications: Unless instructed differently below, stay on all of your medications until your surgery. If you start any new medications after today's visit, please contact your surgeon. Pre-Surgery Med Instructions Medication Instructions furosemide (LASIX) 20 mg tablet Do not take the day of surgery loratadine (CLARITIN) 10 mg tablet Do not take the day of surgery traZODone (DESYREL) 100 mg tablet Do not take the day of surgery propranolol (INDERAL) 20 mg tablet Take the day of surgery with a small sip of water oxybutynin ER (DITROPAN XL) 15 mg 24 hr Extended Rel Tab Do not take the day of surgery furosemide (LASIX) 40 mg tablet Do not take the day of surgery atorvastatin (LIPITOR) 80 mg tablet Take the day of surgery with a small sip of water pregabalin (LYRICA) 75 mg capsule Take the day of surgery with a small sip of water DULoxetine (CYMBALTA) 30 mg capsule Take the day of surgery with a small sip of water busPIRone (BUSPAR) 15 mg tablet Take the day of surgery with a small sip of water acetaminophen (TYLENOL) 500 mg tablet Take the day of surgery with a small sip of water insulin glargine (LANTUS SOLOSTAR U-100 INSULIN) 100 unit/mL (3 mL) If you take your insulin at night, take 75% of the normal dose. 25 units If you take insulin in the morning, check your morning blood sugar. If it is 200 or greater, take half the prescribed dose. If your am blood sugar is less than 200, do not take any insulin insulin aspart, niacinamide, (FIASP FLEXTOUCH U-100 INSULIN) 100 unit/mL (3 mL) pen Do not take theday of surgery lisinopril (ZESTRIL, PRINIVIL) 5 mg tablet Do not take for 24 hours prior to surgery PSEUDOEPHEDRINE HCL ORAL Do not take the day of surgery ondansetron orally disintegrating (ZOFRAN ODT) 8 mg disintegrating tablet If needed If you start any new medications after today's visit, please contact the surgeon's office. Blood Thinning Medications: - Stop NSAIDS (Ibuprofen, Advil, Aleve, Motrin, Celebrex, Mobic, etc.) 7 days before surgery, as directed by your surgeon. - Stop Aspirin 7 days before surgery, as directed by your surgeon. - Stop Vitamin E, ALL multi-vitamins, herbals and dietary supplements 14 days before surgery. - You may take Tylenol (Acetaminophen) or any of your pain medications that do not contain aspirin or NSAIDS as needed. Important Reminders: - If you use CPAP/BIPAP, bring the machine with you to the surgery center. - If you are prescribed inhalers for breathing, continue using them. -Please be sure to brush your teeth and you can use mouth wash or rinse your mouth if dry. - Candy, mints, and tobacco products are NOT permitted the morning of surgery. - Hearing aids, dentures and glasses may be worn the morning of surgery. - NO jewelry, body piercings, makeup, hairpins or contacts are to be worn the day of surgery. If you develop symptoms such as a fever, cold, or flu, or have other changes to your health within TWO DAYS of scheduled surgery or the morning of surgery, please contact the surgery center above. Personal Belongings: -Please have photo ID and insurance cards. -If you do not have a copy of advance directives on file with us, please bring a copy with you on the day of surgery. - Leave ALL valuables and money at home or with family members. Please be aware that emergency situations arise, which may delay or change your surgical time. If this happens, we will notify you as soon as possible and regret any inconvenience. If you already have an Advance Directive, please fax a copy to [phone] or email to for it to be added to your chart. If you do not have an Advance Directive, you can find the appropriate form and more information at [email or web address]. We recommend that youcomplete the Advance Directive form found on the website and bring it with you the day of your surgery. It can be witnessed and scanned into your chart that day. Zainab Zendejas APRN.CLOTILDE documented in this encounterOur [facility] History and physical note * Zainab Zendejas APRN.CNP - 10/11/2023 9:05 AM EDT Images from the original note were not included. HISTORY AND PHYSICAL EXAMINATION SERVICE DATE: 10/11/2023 SERVICE TIME: 10:06 AM PRIMARY CARE PHYSICIAN: Will Brannon MD Assessment Patient has the following medical conditions which may affect frederick-operative course: Spina bifida (HCC) Assessment: dx at 32, prior spinal procedures. is caregiver. Mixed hyperlipidemia Assessment: Complaint on statin therapy. Encouraged lifestyle modifications. Body mass index is 40.62 kg/m . Essential hypertension Assessment: Stable, complaint on rx. Follows with PCP. Last 3 Encounter BP Readings: Date: BP: 10/11/2023 118/82 10/09/2023 112/71 09/28/2023 110/78 Diabetes mellitus with peripheral vascular disease (HCC) Assessment: Reports compliance to medication. Reports BS checks, reports in the low 200s. Followingwith endo, to be seen by new endo in the future. Encouraged lifestyle modifications. Hemoglobin A1C Date Value 10/02/2023 11.8 % 04/12/2023 11.1 % 01/13/2022 8.2 03/05/2021 12 10/30/2020 10.9 % 03/09/2020 9.6 % Hemoglobin A1C (POCT) (%) Date Value 06/25/2020 11.6 Neurogenic bowel Assessment: has colostomy present. Fatty liver Assessment: Follows pcp CMP: Glucose 343 10/02/2023 BUN 16 10/02/2023 Creatinine 0.82 10/02/2023 Sodium 136 10/02/2023 Potassium 4.0 10/02/2023 Chloride 96 10/02/2023 CO2 25 10/02/2023 Protein, Total 7.6 10/02/2023 Albumin 4.4 10/02/2023 Calcium 10.4 10/02/2023 Alkaline Phosphatase 111 10/02/2023 Bilirubin, Total 0.2 10/02/2023 AST 38 10/02/2023 ALT 69 10/02/2023 Neurogenic bladder Assessment: has SPT catheter present. Anxiety and depression Assessment: complaint on mood stablizers, follows psychiatry. Bilateral leg edema Assessment: on lasix, chronic LE b/l. Pt reports at baseline today Colostomy in place (HCC) Assessment: reports feeling very well since placed. Reports daily changes. No blood in stool. Paroxysmal SVT (supraventricular tachycardia) (HCC) Assessment: noted in hx, last EKG NSR. Matthews Activity Status Index: METS: Do yardwork, such as raking leaves, weeding, or pushing a power mower (4.50 METs) DASI Score: 4.5 (Baseline ) Patient denies any chest pain or undue shortness of breath with the above physical activity. Clinical Frailty Scale: 3. Well, with treated comorbid disease STOP-Bang Score: Snores loudly Has or is being treated for high blood pressure BMI greater than 35 kg/m^2 Denies feeling tired, fatigued, or sleepy during the daytime Has not been observed to stop breathing or choking/gasping during sleep Patient 50 years old or younger Does not have a large neck Non-male patient STOP-Bang Score: 3 (Tested negative ) [id number] Score: Hypertension history: Yes Diabetes history: Yes [id number] Score: ANESTHESIA FINDINGS: Intubation History: No history of difficult intubation. No abnormal airway history Significant Anesthesia Considerations: potential difficult IV/vein access Airway History: No history of difficult airway No abnormal airway history I - PHYSICAL EVALUATION AIRWAY Patient intubated: No. Tracheostomy tube not present Mallampati: I. TM distance: >3 FB. Neck ROM: full ROM without neurological symptoms. Mouth opening: adequate. Short neck: no. Thick neck: no Microretrognathia/Micronagthia/Recessed Chin: No DENTAL Dental findings: missing tooth/teeth, broken tooth and chipped. II - ANESTHESIA PLAN Anesthetic plan additional comments: *[facility] - anesthesia choice. Beta Pan Monitoring Plan Post Procedure Analgesic Plan Prepared for Surgery: optimally prepared for surgery, pending [see comment]. Lab ordered prior to procedure per [facility] protocol Uncontrolled DM, sent TE to surgeon. EKG reviewed ADDENDUM: October 11, 2023 1:[address] Slater anesthesiologist, advised to try to control BS prior to surgery. Concerned with risk of DKA intra-op, post op infection d/t high BS. Advised to try to move endocrine appt earlier if possible or have PCP add rx to help get glucose under 200. See TE. CONSULTS: Patient does not require consults for optimization at this time Planned Anesthetic: anesthesia choice The Following Tests/Procedures Have Been Initiated: Orders Placed This Encounter Complete Blood Count and Differential Standing Status: Future Standing Expiration Date: 01/10/2024 Type and Screen, 30 day Standing Status: Future Standing Expiration Date: 01/10/2024 Confirm Blood Type Standing Status: Future Standing Expiration Date: 01/10/2024 Order Specific Question: Did Blood Bank direct you to place this order: Answer: No - Presurgical Workflow REASON FOR VISIT: Debby Bailon is a 42 year old female who is scheduled for Procedure(s): LUMBAR LAMINECTOMY REVISION L3-L5 W/ RELEASE OF TETHERED SPINAL CORD (N/A) at the request of Dr. Sweeney, Daiana Soto MD for consultation. My final recommendation will be communicated back to therequesting physician by way of shared medical record or letter. 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) Paroxysmal Svt (Supraventricular Tachycardia) (Hcc) Thyroid Cyst Migraine Without Aura and Without Status Migrainosus, Not Intractable Medicare Annual Wellness Visit, Subsequent Mixed Hyperlipidemia History of Recurrent [place] History of Kidney Stones Bilateral Leg Edema Djd (Degenerative Joint Disease), Thoracic Encounter for Care Or Replacement of Suprapubic Tube (Hcc) Essential Hypertension History of 2019 Novel Coronavirus Disease (Covid-19) Fatty Liver Elevated Lfts Amputation of Left Great Toe (Hcc) Hyponatremia 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) Hypomagnesemia Constipation Due to Outlet Dysfunction Non-Compliance Recurrent Uti Renal Stone Major Depressive Disorder, Recurrent, Mild (Hcc) Diabetes Mellitus With Peripheral Vascular Disease (Hcc) Cervical Vertebral Fusion Spinal Stenosis of Cervical Region Moderate Recurrent Major Depression (Hcc) COVID-19 Immunization Status Discontinued - Covid-19 Vaccine Discontinued 08/24/2022 Frequency changed to Never by Will Brannon MD (Patient Preference) 07/28/2021 Postponed until 07/28/2022 by Will Brannon MD (Declined at this time) CHIEF COMPLAINT: pre op HPI: Patient is a 42 year old female presenting with a hx of spina bifeda. Noted to have tethered cord. Reports pain today of 7/10, described as throbbing. C/o numbness in her lower legs. Has chronicassociated bowel and bladder disease, has SPT. Has tried conservative methods with little relief. Patient denies other specific radiating, alleviating, or aggravating factors. REVIEW OF SYSTEMS: General: No weight loss, malaise or fevers. Neurological: +spina bifeda Positive for: peripheral neuropathy. Negative for: dementia, headaches, impaired sensorium, seizures, TIA and strokes. Respiratory: Negative for: asthma, COPD, current cough, dyspnea, home oxygen, orthopnea, tobacco use, URI < 2weeks and obstructive sleep apnea. Cardiovascular: Denies dizziness or syncope. Positive for: arrhythmia, hyperlipidemia and hypertension Negative for: abdominal aortic aneurysm, AICD/PPM, angina, anticoagulation therapy, atrial fibrillation, CAD, chest pain, CHF, congenital heart defect, DVT/PE, recent AL, murmur/valvular heart disease, PTCA, PVD, open heart surgery and valve surgery. GI: +colostomy Positive for: abdominal pain and liver disease Negative for: GERD, GI bleed <30 days, hepatitis, nausea and vomiting. : Denies kidney disease. +SPT Positive for: urinary tract infection (none current but hx). Negative for: on dialysis, dysuria, frequent urination, hematuria and renal failure. 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 Endocrine: Positive for: diabetes mellitus. Negative for: hyperthyroidism and hypothyroidism. Hematology: No history of bleeding or clotting disorder. Patient is not taking anti-coagulation or platelet medications. No history of hematological symptoms or problems. Oncology: No history of CA metastasis, chemo within 30 days, or radiotherapy within 90 days. No history of oncological symptoms or problems. Psych: Positive for: anxiety and depression. Negative for: bipolar disorder. Musculoskeletal: See HPI. Skin: Negative for lesions, rash and itching. PAST MEDICAL HISTORY Diagnosis Date Amputation of left great toe ([facility]) 06/25/2020 Arthritis started age 19 Bilateral leg edema 07/16/2018 Cervical radiculopathy 05/02/2013 Chronic pain 02/12/[address] ([facility]) 09/30/2021 Constipation due to outlet dysfunction 10/07/2021 Cyst of ovary 11/28/2011 Diabetes mellitus with peripheral vascular disease ([facility]) 03/29/2023 Diabetic eye exam ([facility]) 06/17/2016 Last done: 01/25/2017 Diabetic eye exam (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 Will monitor. Lipomeningocele, sacral level 09/12/2013 Lumbago 02/12/2015 Major depressive disorder, recurrent, mild (HCC) 03/29/2023 Medicare annual wellness visit, subsequent 02/28/2018 last done: 02/28/2018 Migraine without aura and without status migrainosus, not intractable 10/18/2016 Miscarriage Mixed hyperlipidemia 02/28/2018 Muscle weakness of left lower extremity 08/07/2013 Neck pain 05/02/2013 Neurogenic bladder 02/12/2015 Neurogenic bowel 01/06/2016 Neuropathy 02/12/2015 post back surgery with secondary infection. Seeing Dr. Gregg Non-compliance 09/02/2022 Even stated in endocrine note from 09/01/2022 Numbness and tingling of left arm and leg 08/07/2013 Obesity, Class II, BMI 35-39.9 02/12/2015 Panic attacks Paroxysmal SVT (supraventricular tachycardia) (HCC) 07/03/2017 Per 48 Hr event monitor 06/30/2017 Primary insomnia 02/17/2016 S/P hernia repair 12/11/2017 Spina bifida (HCC) 01/06/2016 Thyroid cyst 01/01/2018 Complex right sided cysts. US 12/2017, biopsy per Dr. Josue 01/23/2018 benign. Repeat US in a year. 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 nl AMPUTATION TOE,MT-P JT Left 02/11/2020 left big toe CATH, SUPRAPUBIC/CYSTOSCOPIC 11/07/2018 COLOSTOMY 10/01/2021 CYSTOSCOPY,REMV CALCULUS,COMPLIC 11/10/2020 DILATION & CURETTAGE DX&/THER NONOBSTETRIC Dilation & curettage HERNIA REPAIR W/MESH 2019 LEXISCAN STRESS TEST 07/20/2018 negative NUCLEAR STRESS LEXISCAN (CARD) 10/24/2018 negative PAST SURGICAL HISTORY OF 2010 cholecystectomy PAST SURGICAL HISTORY OF 09/2012 back surgery x2 PAST SURGICAL HISTORY OF Left & 02/2014 foot x2 PAST SURGICAL HISTORY OF 07/2015 ABD procedure; Bowles stoma PAST SURGICAL HISTORY OF 09/30/2021 Laparoscopic end colostomy PAST SURGICAL HISTORY OF Left 01/2021 bone removed left foot REPAIR UMBILICAL HERNIA 12/11/2017 STRESS ECHO 12/09/2019 Negative STRESS TEST 07/18/2017 normal STRESS TEST 03/15/2018 negative THYROID FINE NEEDLE ASPIRATION Right 04/13/2023 right mid thyroid FAMILY HISTORY Problem Relation Age of Onset Cancer Father Skin Arthritis Mother Diabetes Mother Heart Mother Hypertension Mother Lipids Mother Stroke Mother Thyroid Mother Cancer Maternal Grandmother LIVER CANCER Cancer Maternal Uncle Great Uncle Cancer Maternal Uncle Great Uncle Anesthesia Problems No Family History Social History Tobacco Use Smoking status: Never Smokeless tobacco: Never Vaping Use Vaping Use: Never used Substance Use Topics Alcohol use: Not Currently Comment: social Drug use: Never Prior to Admission medications as of 10/11/23 0922 Medication Sig Last Dose Taking furosemide (LASIX) 20 mg tablet Take 1 tablet by mouth once daily. Take in evening Taking Yes loratadine (CLARITIN) 10 mg tablet Take 1 tablet by mouth once daily. Taking Yes traZODone (DESYREL) 100 mg tablet Take 1 tablet by mouth daily at bedtime. Taking Yes propranolol (INDERAL) 20 mg tablet Take 1 tablet by mouth two times a day. Taking Yes oxybutynin ER (DITROPAN XL) 15 mg 24 hr Extended Rel Tab Take 1 tablet by mouth once daily. Taking Yes furosemide (LASIX) 40 mg tablet Take 1 tablet by mouth once daily. Take in morning Taking Yes atorvastatin (LIPITOR) 80 mg tablet Take 1 tablet by mouth once daily. Taking Yes pregabalin (LYRICA) 75 mg capsule Take 1 capsule by mouth two times a day for 90 days. Taking Yes DULoxetine (CYMBALTA) 30 mg capsule Take 30 mg by mouth once daily. Taking Yes busPIRone (BUSPAR) 15 mg tablet Take 15 mg by mouth. Taking Yes acetaminophen (TYLENOL) 500 mg tablet Take 650 mg by mouth. Taking Yes insulin glargine (LANTUS SOLOSTAR U-100 INSULIN) 100 unit/mL (3 mL) Inject 33 Units subcutaneously daily at bedtime. E11.65 Taking Yes insulin aspart, niacinamide, (FIASP FLEXTOUCH U-100 INSULIN) 100 unit/mL (3 mL) pen Inject 18 Unitssubcutaneously three times daily before meals. (Includes SS # 2 QAC -> Per Dr. Ermias Salomon) MAX TDD = 55 UNITS / DAY. E11.65 Taking Yes lisinopril (ZESTRIL, PRINIVIL) 5 mg tablet Take 1 tablet by mouth once daily. Per Dr. Ermias Salomon Taking Yes sodium chloride irrig solution (NACL 0.9% IRRIGATION BOTTLE) To use for catheter irrigation daily or as needed. Taking Yes Insulin [place], Disposable, (COMFORT EZ PEN NEEDLES) 29 gauge x 1/2 One needle with each lantus shot once a day. Dx: E13.29 on insulin Taking Yes PSEUDOEPHEDRINE HCL ORAL Take 30 mg by mouth as needed. Taking Yes ondansetron orally disintegrating (ZOFRAN ODT) 8 mg disintegrating tablet 8 mg as needed. Taking Yes fluticasone (FLONASE) 50 mcg/actuation nasal spray Use 2 Sprays in each nostril once daily. Rinse mouth after use. Taking Yes Insulin [place], Disposable, 32 gauge x 5/16 ndle Use once daily with Victoza Taking Yes COMPOUNDED PRESCRIPTION Stoma catheter tube. DX: Qo5.4 and K59.2 Taking Yes sulfamethoxazole-trimethoprim (BACTRIM DS) 800-160 mg per tablet Take 1 tablet by mouth every 12 hours. Patient not taking: Reported on 10/11/2023 Not Taking No medication comments found. ALLERGIES Allergen Reactions Ceftriaxone Anaphylaxis Had skin testing on 12/09 at allergy office which was positive. Also had prior anaphylactic reactionon 09/30/2021. Patient should avoid ceftriaxone and all other cephalosporins. She has tolerated amoxicillin outpatient in the past. Cephalosporins Anaphylaxis Patient had anaphylaxis pre-op on 09/30 when this was given with other induction agents. Patient hadskin testing on 12/09/21 which was positive to ceftriaxone (see separate note from same day). Pleaseavoid all cephalosporins. Mushroom Anaphylaxis Peanut Anaphylaxis Peanuts Anaphylaxis Latex Rash Gabapentin Mental Status Change Patient reports having cognitive/memory issues after taking Mri Contrast [Gadol* GI Upset Objective PHYSICAL EXAM: General: alert and oriented, healthy appearance and morbidly obese. Pertinent negatives noted - notdistressed. Skin: normal color, no rash or lesions. HEENT: EOM intact, pupils equal round and pupils reactive to light. Pertinent negatives noted - no carotid bruit. Cardiovascular: regular rate and rhythm, normal S1 and S2, no rub, murmurs, or gallop. Respiratory: normal breath sounds, no wheezes or crackles. No chest wall deformity or tenderness. Abdomen: bowel sounds present, soft, stoma present and tender. Extremities: Positive for edema (b/l le chronic). Pertinent negatives noted - no cellulitis, no clubbing, no deformity, no joint swelling, no joint tenderness, no abnormal pulses, no ulcer and no vascular insufficiency. Neurological: normal cognition and motor skills. Gait normal. No weakness or sensory deficit. PAIN ASSESSMENT: VITALS: BP 118/82 Pulse 99 Temp 97.7 Ht 5' 1 (1.55m) Wt 215 lb (97.5kg) SpO2 97% LMP 09/07/2023 BMI 40.64 kg/(m^2). Diagnostic tests reviewed for today's visit: Lab Value Units Date High Low HB 14.7 g/dL 10/02/2023 15.5 11.5 HCT 44.4 % 10/02/2023 46.0 36.0 WBC 15.26 k/uL 10/02/2023 11.00 3.70 PLT 302 k/uL 10/02/2023 400 150 NA 136 mmol/L 10/02/2023 144 136 K 4.0 mmol/L 10/02/2023 5.1 3.7 GLUC 343 mg/dL 10/02/2023 99 74 BUN 16 mg/dL 10/02/2023 21 7 CREAT 0.82 mg/dL 10/02/2023 0.96 0.58 PTSEC No results within date range. INR No results within date range. APTT No results within date range. ALT 69 U/L 10/02/2023 38 7 AST 38 U/L 10/02/2023 35 13 TBILI 0.2 mg/dL 10/02/2023 1.3 0.2 TSH 0.483 mIU/L 10/02/2023 4.200 0.270 Lab Value Units Date High Low HCGQT No results within date range. UHCG No results within date range. HCG, BODY* No results within date range. Lab Value Units Date High Low ABORHD No results within date range. ABSCREEN No results within date range. Hemoglobin A1C Date Value 10/02/2023 11.8 % 04/12/2023 11.1 % 01/16/2023 11.2 % 08/29/2022 10.2 % 01/13/2022 8.2 07/29/2021 10.5 % 03/05/2021 12 10/30/2020 10.9 % 03/09/2020 9.6 % 10/09/2019 10.7 % 06/12/2019 9.9 % 02/21/2019 8.1 % Hemoglobin A1C (POCT) (%) Date Value 06/25/2020 11.6 Recent Results (from the past 8760 hour(s)) ECG COMPLETE Collection Time: 09/28/23 5:47 PM Result Value Ventricular Rate 76 Atrial Rate 76 P-R Interval 138 QRS Duration 76 QT Interval 410 QTC Calculation (Bazett) 461 Calculated P Hydes 24 Calculated R Hydes 28 Calculated T Hydes 17 Impression NORMAL SINUS RHYTHM NORMAL ECG Confirmed by MD BARCLAY GREGORY () on 09/29/2023 9:24:59 AM Recent Results (from the past 87120 hour(s)) ECHO Collection Time: 09/30/21 2:51 PM Impression CONCLUSIONS: - Technically difficult exam due to mechanical ventilation, suboptimal positioning and body habitus. - Exam indication: Shortness of Breath - The left ventricle is normal in size. Left ventricular systolic function is normal. EF = 63 5% (2D biplane) Normal left ventricular diastolic function. - The right ventricle is normal in size. Right ventricular systolic function is normal. - The patient has not had a prior CC echocardiographic exam for comparison. * * * Final * * * Instructions Given to Patient: Instructions located in the after visit summary. Patient given verbal and written preop instructions and voices comprehension and compliance. SIGNATURE: Zainab Zendejas APRN.CNP PATIENT NAME: Debby Bailon DATE: October 11, 2023 TIME: 9:05 AM PAGER/CONTACT #: [facility]05-15-2024 History and physical note* Zainab Zendejas APRN.BURIAL AGENT - 10/11/2023 9:05 AM EDT Images from the original note were not included. HISTORY AND PHYSICAL EXAMINATION SERVICE DATE: 10/11/2023 SERVICE TIME: 10:06 AM PRIMARY CARE PHYSICIAN: Will Brannon MD Assessment Patient has the following medical conditions which may affect [place]-operative course: Spina bifida (HCC) Assessment: dx at 32, prior spinal procedures. is caregiver. Mixed hyperlipidemia Assessment: Complaint on statin therapy. Encouraged lifestyle modifications. Body mass index is 40.62 kg/m . Essential hypertension Assessment: Stable, complaint on rx. Follows with PCP. Last 3 Encounter BP Readings: Date: BP: 10/11/2023 118/82 10/09/2023 112/71 09/28/2023 110/78 Diabetes mellitus with peripheral vascular disease (HCC) Assessment: Reports compliance to medication. Reports BS checks, reports in the low 200s. Followingwith endo, to be seen by new endo in the future. Encouraged lifestyle modifications. Hemoglobin A1C Date Value 10/02/2023 11.8 % 04/12/2023 11.1 % 01/13/2022 8.2 03/05/2021 12 10/30/2020 10.9 % 03/09/2020 9.6 % Hemoglobin A1C (POCT) (%) Date Value 06/25/2020 11.6 Neurogenic bowel Assessment: has colostomy present. Fatty liver Assessment: Follows pcp CMP: Glucose 343 10/02/2023 BUN 16 10/02/2023 Creatinine 0.82 10/02/2023 Sodium 136 10/02/2023 Potassium 4.0 10/02/2023 Chloride 96 10/02/2023 CO2 25 10/02/2023 Protein, Total 7.6 10/02/2023 Albumin 4.4 10/02/2023 Calcium 10.4 10/02/2023 Alkaline Phosphatase 111 10/02/2023 Bilirubin, Total 0.2 10/02/2023 AST 38 10/02/2023 ALT 69 10/02/2023 Neurogenic bladder Assessment: has SPT catheter present. Anxiety and depression Assessment: complaint on mood stablizers, follows psychiatry. Bilateral leg edema Assessment: on lasix, chronic LE b/l. Pt reports at baseline today Colostomy in place (HCC) Assessment: reports feeling very well since placed. Reports daily changes. No blood in stool. Paroxysmal SVT (supraventricular tachycardia) (HCC) Assessment: noted in hx, last EKG NSR. Matthews Activity Status Index: METS: Do yardwork, such as raking leaves, weeding, or pushing a power mower (4.50 METs) DASI Score: 4.5 (Baseline ) Patient denies any chest pain or undue shortness of breath with the above physical activity. Clinical Frailty Scale: 3. Well, with treated comorbid disease STOP-Bang Score: Snores loudly Has or is being treated for high blood pressure BMI greater than 35 kg/m^2 Denies feeling tired, fatigued, or sleepy during the daytime Has not been observed to stop breathing or choking/gasping during sleep Patient 50 years old or younger Does not have a large neck Non-male patient STOP-Bang Score: 3 (Tested negative ) [id number] Score: Hypertension history: Yes Diabetes history: Yes [id number] Score: ANESTHESIA FINDINGS: Intubation History: No history of difficult intubation. No abnormal airway history Significant Anesthesia Considerations: potential difficult IV/vein access Airway History: No history of difficult airway No abnormal airway history I - PHYSICAL EVALUATION AIRWAY Patient intubated: No. Tracheostomy tube not present Mallampati: I. TM distance: >3 FB. Neck ROM: full ROM without neurological symptoms. Mouth opening: adequate. Short neck: no. Thick neck: no Microretrognathia/Micronagthia/Recessed Chin: No DENTAL Dental findings: missing tooth/teeth, broken tooth and chipped. II - ANESTHESIA PLAN Anesthetic plan additional comments: *PACC/TCI - anesthesia choice. Beta Pan Monitoring Plan Post Procedure Analgesic Plan Prepared for Surgery: optimally prepared for surgery, pending [see comment]. Lab ordered prior to procedure per PACC protocol Uncontrolled DM, sent TE to surgeon. EKG reviewed ADDENDUM: October 11, 2023 1:[address] Slater anesthesiologist, advised to try to control BS prior to surgery. Concerned with risk of DKA intra-op, post op infection d/t high BS. Advised to try to move endocrine appt earlier if possible or have PCP add rx to help get glucose under 200. See TE. CONSULTS: Patient does not require consults for optimization at this time Planned Anesthetic: anesthesia choice The Following Tests/Procedures Have Been Initiated: Orders Placed This Encounter Complete Blood Count and Differential Standing Status: Future Standing Expiration Date: 01/10/2024 Type and Screen, 30 day Standing Status: Future Standing Expiration Date: 01/10/2024 Confirm Blood Type Standing Status: Future Standing Expiration Date: 01/10/2024 Order Specific Question: Did Blood Bank direct you to place this order: Answer: No - Presurgical Workflow REASON FOR VISIT: Debby Bailon is a 42 year old female who is scheduled for Procedure(s): LUMBAR LAMINECTOMY REVISION L3-L5 W/ RELEASE OF TETHERED SPINAL CORD (N/A) at the request of Dr. Sweeney, Daiana Soto MD for consultation. My final recommendation will be communicated back to therequesting physician by way of shared medical record or letter. 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) Paroxysmal Svt (Supraventricular Tachycardia) (Hcc) Thyroid Cyst Migraine Without Aura and Without Status Migrainosus, Not Intractable Medicare Annual Wellness Visit, Subsequent Mixed Hyperlipidemia History of Recurrent [place] History of Kidney Stones Bilateral Leg Edema Djd (Degenerative Joint Disease), Thoracic Encounter for Care Or Replacement of Suprapubic Tube (Hcc) Essential Hypertension History of 2019 Novel Coronavirus Disease (Covid-19) Fatty Liver Elevated Lfts Amputation of Left Great Toe (Hcc) Hyponatremia 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) Hypomagnesemia Constipation Due to Outlet Dysfunction Non-Compliance Recurrent Uti Renal Stone Major Depressive Disorder, Recurrent, Mild (Hcc) Diabetes Mellitus With Peripheral Vascular Disease (Hcc) Cervical Vertebral Fusion Spinal Stenosis of Cervical Region Moderate Recurrent Major Depression (Hcc) COVID-19 Immunization Status Discontinued - Covid-19 Vaccine Discontinued 08/24/2022 Frequency changed to Never by Will Brannon MD (Patient Preference) 07/28/2021 Postponed until 07/28/2022 by Will Brannon MD (Declined at this time) CHIEF COMPLAINT: pre op HPI: Patient is a 42 year old female presenting with a hx of spina bifeda. Noted to have tethered cord. Reports pain today of 7/10, described as throbbing. C/o numbness in her lower legs. Has chronicassociated bowel and bladder disease, has SPT. Has tried conservative methods with little relief. Patient denies other specific radiating, alleviating, or aggravating factors. REVIEW OF SYSTEMS: General: No weight loss, malaise or fevers. Neurological: +spina bifeda Positive for: peripheral neuropathy. Negative for: dementia, headaches, impaired sensorium, seizures, TIA and strokes. Respiratory: Negative for: asthma, COPD, current cough, dyspnea, home oxygen, orthopnea, tobacco use, URI < 2weeks and obstructive sleep apnea. Cardiovascular: Denies dizziness or syncope. Positive for: arrhythmia, hyperlipidemia and hypertension Negative for: abdominal aortic aneurysm, AICD/PPM, angina, anticoagulation therapy, atrial fibrillation, CAD, chest pain, CHF, congenital heart defect, DVT/PE, recent AL, murmur/valvular heart disease, PTCA, PVD, open heart surgery and valve surgery. GI: +colostomy Positive for: abdominal pain and liver disease Negative for: GERD, GI bleed <30 days, hepatitis, nausea and vomiting. : Denies kidney disease. +SPT Positive for: urinary tract infection (none current but hx). Negative for: on dialysis, dysuria, frequent urination, hematuria and renal failure. 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 Endocrine: Positive for: diabetes mellitus. Negative for: hyperthyroidism and hypothyroidism. Hematology: No history of bleeding or clotting disorder. Patient is not taking anti-coagulation or platelet medications. No history of hematological symptoms or problems. Oncology: No history of CA metastasis, chemo within 30 days, or radiotherapy within 90 days. No history of oncological symptoms or problems. Psych: Positive for: anxiety and depression. Negative for: bipolar disorder. Musculoskeletal: See HPI. Skin: Negative for lesions, rash and itching. PAST MEDICAL HISTORY Diagnosis Date Amputation of left great toe (HCC) 06/25/2020 Arthritis started age 19 Bilateral leg edema 07/16/2018 Cervical radiculopathy 05/02/2013 Chronic pain 02/12/[address] (HCC) 09/30/2021 Constipation due to outlet dysfunction 10/07/2021 Cyst of ovary 11/28/2011 Diabetes mellitus with peripheral vascular disease (HCC) 03/29/2023 Diabetic eye exam ([facility]) 06/17/2016 Last done: 01/25/2017 Diabetic eye exam (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 Will monitor. Lipomeningocele, sacral level 09/12/2013 Lumbago 02/12/2015 Major depressive disorder, recurrent, mild ([facility]) 03/29/2023 Medicare annual wellness visit, subsequent 02/28/2018 last done: 02/28/2018 Migraine without aura and without status migrainosus, not intractable 10/18/2016 Miscarriage Mixed hyperlipidemia 02/28/2018 Muscle weakness of left lower extremity 08/07/2013 Neck pain 05/02/2013 Neurogenic bladder 02/12/2015 Neurogenic bowel 01/06/2016 Neuropathy 02/12/2015 post back surgery with secondary infection. Seeing Dr. Gregg Non-compliance 09/02/2022 Even stated in endocrine note from 09/01/2022 Numbness and tingling of left arm and leg 08/07/2013 Obesity, Class II, BMI 35-39.9 02/12/2015 Panic attacks Paroxysmal SVT (supraventricular tachycardia) ([facility]) 07/03/2017 Per 48 Hr event monitor 06/30/2017 Primary insomnia 02/17/2016 S/P hernia repair 12/11/2017 Spina bifida (HCC) 01/06/2016 Thyroid cyst 01/01/2018 Complex right sided cysts. US 12/2017, biopsy per Dr. Josue 01/23/2018 benign. Repeat US in a year. 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 nl AMPUTATION TOE,MT-P JT Left 02/11/2020 left big toe CATH, SUPRAPUBIC/CYSTOSCOPIC 11/07/2018 COLOSTOMY 10/01/2021 CYSTOSCOPY,REMV CALCULUS,COMPLIC 11/10/2020 DILATION & CURETTAGE DX&/THER NONOBSTETRIC Dilation & curettage HERNIA REPAIR W/MESH 2018 LEXISCAN STRESS TEST 07/20/2018 negative NUCLEAR STRESS LEXISCAN (CARD) 10/24/2018 negative PAST SURGICAL HISTORY OF 2010 cholecystectomy PAST SURGICAL HISTORY OF 09/2012 back surgery x2 PAST SURGICAL HISTORY OF Left & 02/2014 foot x2 PAST SURGICAL HISTORY OF 07/2015 ABD procedure; Bowles stoma PAST SURGICAL HISTORY OF 09/30/2021 Laparoscopic end colostomy PAST SURGICAL HISTORY OF Left 01/2021 bone removed left foot REPAIR UMBILICAL HERNIA 12/11/2017 STRESS ECHO 12/09/2019 Negative STRESS TEST 07/18/2017 normal STRESS TEST 03/15/2018 negative THYROID FINE NEEDLE ASPIRATION Right 04/13/2023 right mid thyroid FAMILY HISTORY Problem Relation Age of Onset Cancer Father Skin Arthritis Mother Diabetes Mother Heart Mother Hypertension Mother Lipids Mother Stroke Mother Thyroid Mother Cancer Maternal Grandmother LIVER CANCER Cancer Maternal Uncle Great Uncle Cancer Maternal Uncle Great Uncle Anesthesia Problems No Family History Social History Tobacco Use Smoking status: Never Smokeless tobacco: Never Vaping Use Vaping Use: Never used Substance Use Topics Alcohol use: Not Currently Comment: social Drug use: Never Prior to Admission medications as of 10/11/23 0922 Medication Sig Last Dose Taking furosemide (LASIX) 20 mg tablet Take 1 tablet by mouth once daily. Take in evening Taking Yes loratadine (CLARITIN) 10 mg tablet Take 1 tablet by mouth once daily. Taking Yes traZODone (DESYREL) 100 mg tablet Take 1 tablet by mouth daily at bedtime. Taking Yes propranolol (INDERAL) 20 mg tablet Take 1 tablet by mouth two times a day. Taking Yes oxybutynin ER (DITROPAN XL) 15 mg 24 hr Extended Rel Tab Take 1 tablet by mouth once daily. Taking Yes furosemide (LASIX) 40 mg tablet Take 1 tablet by mouth once daily. Take in morning Taking Yes atorvastatin (LIPITOR) 80 mg tablet Take 1 tablet by mouth once daily. Taking Yes pregabalin (LYRICA) 75 mg capsule Take 1 capsule by mouth two times a day for 90 days. Taking Yes DULoxetine (CYMBALTA) 30 mg capsule Take 30 mg by mouth once daily. Taking Yes busPIRone (BUSPAR) 15 mg tablet Take 15 mg by mouth. Taking Yes acetaminophen (TYLENOL) 500 mg tablet Take 650 mg by mouth. Taking Yes insulin glargine (LANTUS SOLOSTAR U-100 INSULIN) 100 unit/mL (3 mL) Inject 33 Units subcutaneously daily at bedtime. E11.65 Taking Yes insulin aspart, niacinamide, (FIASP FLEXTOUCH U-100 INSULIN) 100 unit/mL (3 mL) pen Inject 18 Unitssubcutaneously three times daily before meals. (Includes SS # 2 QAC -> Per Dr. Ermias Salomon) MAX TDD = 55 UNITS / DAY. E11.65 Taking Yes lisinopril (ZESTRIL, PRINIVIL) 5 mg tablet Take 1 tablet by mouth once daily. Per Dr. Ermias Salomon Taking Yes sodium chloride irrig solution (NACL 0.9% IRRIGATION BOTTLE) To use for catheter irrigation daily or as needed. Taking Yes Insulin [place], Disposable, (COMFORT EZ PEN NEEDLES) 29 gauge x 1/2 One needle with each lantus shot once a day. Dx: E13.29 on insulin Taking Yes PSEUDOEPHEDRINE HCL ORAL Take 30 mg by mouth as needed. Taking Yes ondansetron orally disintegrating (ZOFRAN ODT) 8 mg disintegrating tablet 8 mg as needed. Taking Yes fluticasone (FLONASE) 50 mcg/actuation nasal spray Use 2 Sprays in each nostril once daily. Rinse mouth after use. Taking Yes Insulin [place], Disposable, 32 gauge x 5/16 ndle Use once daily with Victoza Taking Yes COMPOUNDED PRESCRIPTION Stoma catheter tube. DX: Qo5.4 and K59.2 Taking Yes sulfamethoxazole-trimethoprim (BACTRIM DS) 800-160 mg per tablet Take 1 tablet by mouth every 12 hours. Patient not taking: Reported on 10/11/2023 Not Taking No medication comments found. ALLERGIES Allergen Reactions Ceftriaxone Anaphylaxis Had skin testing on 12/09 at allergy office which was positive. Also had prior anaphylactic reactionon 09/30/2021. Patient should avoid ceftriaxone and all other cephalosporins. She has tolerated amoxicillin outpatient in the past. Cephalosporins Anaphylaxis Patient had anaphylaxis pre-op on 09/30 when this was given with other induction agents. Patient hadskin testing on 12/09/21 which was positive to ceftriaxone (see separate note from same day). Pleaseavoid all cephalosporins. Mushroom Anaphylaxis Peanut Anaphylaxis Peanuts Anaphylaxis Latex Rash Gabapentin Mental Status Change Patient reports having cognitive/memory issues after taking Mri Contrast [Gadol* GI Upset Objective PHYSICAL EXAM: General: alert and oriented, healthy appearance and morbidly obese. Pertinent negatives noted - notdistressed. Skin: normal color, no rash or lesions. HEENT: EOM intact, pupils equal round and pupils reactive to light. Pertinent negatives noted - no carotid bruit. Cardiovascular: regular rate and rhythm, normal S1 and S2, no rub, murmurs, or gallop. Respiratory: normal breath sounds, no wheezes or crackles. No chest wall deformity or tenderness. Abdomen: bowel sounds present, soft, stoma present and tender. Extremities: Positive for edema (b/l le chronic). Pertinent negatives noted - no cellulitis, no clubbing, no deformity, no joint swelling, no joint tenderness, no abnormal pulses, no ulcer and no vascular insufficiency. Neurological: normal cognition and motor skills. Gait normal. No weakness or sensory deficit. PAIN ASSESSMENT: VITALS: BP 118/82 Pulse 99 Temp 97.7 Ht 5' 1 (1.55m) Wt 215 lb (97.5kg) SpO2 97% LMP 09/07/2023 BMI 40.64 kg/(m^2). Diagnostic tests reviewed for today's visit: Lab Value Units Date High Low HB 14.7 g/dL 10/02/2023 15.5 11.5 HCT 44.4 % 10/02/2023 46.0 36.0 WBC 15.26 k/uL 10/02/2023 11.00 3.70 PLT 302 k/uL 10/02/2023 400 150 NA 136 mmol/L 10/02/2023 144 136 K 4.0 mmol/L 10/02/2023 5.1 3.7 GLUC 343 mg/dL 10/02/2023 99 74 BUN 16 mg/dL 10/02/2023 21 7 CREAT 0.82 mg/dL 10/02/2023 0.96 0.58 PTSEC No results within date range. INR No results within date range. APTT No results within date range. ALT 69 U/L 10/02/2023 38 7 AST 38 U/L 10/02/2023 35 13 TBILI 0.2 mg/dL 10/02/2023 1.3 0.2 TSH 0.483 mIU/L 10/02/2023 4.200 0.270 Lab Value Units Date High Low HCGQT No results within date range. UHCG No results within date range. HCG, BODY* No results within date range. Lab Value Units Date High Low ABORHD No results within date range. ABSCREEN No results within date range. Hemoglobin A1C Date Value 10/02/2023 11.8 % 04/12/2023 11.1 % 01/16/2023 11.2 % 08/29/2022 10.2 % 01/13/2022 8.2 07/29/2021 10.5 % 03/05/2021 12 10/30/2020 10.9 % 03/09/2020 9.6 % 10/09/2019 10.7 % 06/12/2019 9.9 % 02/21/2019 8.1 % Hemoglobin A1C (POCT) (%) Date Value 06/25/2020 11.6 Recent Results (from the past 8760 hour(s)) ECG COMPLETE Collection Time: 09/28/23 5:47 PM Result Value Ventricular Rate 76 Atrial Rate 76 P-R Interval 138 QRS Duration 76 QT Interval 410 QTC Calculation (Bazett) 461 Calculated P Hydes 24 Calculated R Hydes 28 Calculated T Hydes 17 Impression NORMAL SINUS RHYTHM NORMAL ECG Confirmed by MD DENY, ELENA () on 09/29/2023 9:24:59 AM Recent Results (from the past 43697 hour(s)) ECHO Collection Time: 09/30/21 2:51 PM Impression CONCLUSIONS: - Technically difficult exam due to mechanical ventilation, suboptimal positioning and body habitus. - Exam indication: Shortness of Breath - The left ventricle is normal in size. Left ventricular systolic function is normal. EF = 63 5% (2D biplane) Normal left ventricular diastolic function. - The right ventricle is normal in size. Right ventricular systolic function is normal. - The patient has not had a prior CC echocardiographic exam for comparison. * * * Final * * * Instructions Given to Patient: Instructions located in the after visit summary. Patient given verbal and written preop instructions and voices comprehension and compliance. SIGNATURE: Zainba Zendejas APRN.CNP PATIENT NAME: Debby Bailon DATE: October 11, 2023 TIME: 9:05 AM PAGER/CONTACT #: [facility] History of Present illness Narrative* Devin George APRN.CNP - 10/09/2023 3:58 PM EDT Chief Complaint Patient presents with: Follow Up: Discuss labs HPI Debby Bailon is a 42 year old female who presents here today for Above Complaints.. Patient presents for follow up for labs.Patient reports she was in the ER on Monday for kidney pain. Patient was concerned for infection however her urine and blood showed no infection. Patient reports she was not taking her medication as directed prior to last visit and lab draw. Patient reports she saw Dr. Monson about a year ago and was told don't come back until you are readyto get serious about your diabetes. Past medical history, appointments, medications, allergies reviewed. Previous Medical History PAST MEDICAL HISTORY Diagnosis Date Amputation of left great toe ([facility]) 06/25/2020 Arthritis started age 19 Bilateral leg edema 07/16/2018 Cervical radiculopathy 05/02/2013 Chronic pain 02/12/[address] ([facility]) 09/30/2021 Constipation due to outlet dysfunction 10/07/2021 Cyst of ovary 11/28/2011 Diabetes mellitus with peripheral vascular disease ([facility]) 03/29/2023 Diabetic eye exam ([facility]) 06/17/2016 Last done: 01/25/2017 Diabetic eye exam (HCC) 06/17/2016 Last done: 03/08/2019 DJD (degenerative joint disease), thoracic DM (diabetes mellitus), secondary, uncontrolled, w/renal complications 12/05/2017 Dysthymic disorder Depression (non-psychotic), sees [facility]PECT[facility] at [facility]. 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 Will monitor. Lipomeningocele, sacral level 09/12/2013 Lumbago 02/12/2015 Major depressive disorder, recurrent, mild (HCC) 03/29/2023 Medicare annual wellness visit, subsequent 02/28/2018 last done: 02/28/2018 Migraine without aura and without status migrainosus, not intractable 10/18/2016 Miscarriage Mixed hyperlipidemia 02/28/2018 Muscle weakness of left lower extremity 08/07/2013 Neck pain 05/02/2013 Neurogenic bladder 02/12/2015 Neurogenic bowel 01/06/2016 Neuropathy 02/12/2015 post back surgery with secondary infection. Seeing Dr. Gregg Non-compliance 09/02/2022 Even stated in endocrine note from 09/01/2022 Numbness and tingling of left arm and leg 08/07/2013 Obesity, Class II, BMI 35-39.9 02/12/2015 Panic attacks Paroxysmal SVT (supraventricular tachycardia) ([facility]) 07/03/2017 Per 48 Hr event monitor 06/30/2017 Primary insomnia 02/17/2016 S/P hernia repair 12/11/2017 Spina bifida (HCC) 01/06/2016 Thyroid cyst 01/01/2018 Complex right sided cysts. US 12/2017, biopsy per Dr. Josue 01/23/2018 benign. Repeat US in a year. 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 nl AMPUTATION TOE,MT-P JT Left 02/11/2020 left big toe CATH, SUPRAPUBIC/CYSTOSCOPIC 11/07/2018 COLOSTOMY 10/01/2021 CYSTOSCOPY,REMV CALCULUS,COMPLIC 11/10/2020 DILATION & CURETTAGE DX&/THER NONOBSTETRIC Dilation & curettage HERNIA REPAIR W/MESH 2019 LEXISCAN STRESS TEST 07/20/2018 negative NUCLEAR STRESS LEXISCAN (CARD) 10/24/2018 negative PAST SURGICAL HISTORY OF 2010 cholecystectomy PAST SURGICAL HISTORY OF 09/2012 back surgery x2 PAST SURGICAL HISTORY OF Left & 02/2014 foot x2 PAST SURGICAL HISTORY OF 07/2015 Bowles stoma PAST SURGICAL HISTORY OF 09/30/2021 Laparoscopic end colostomy PAST SURGICAL HISTORY OF Left 01/2021 bone removed left foot REPAIR UMBILICAL HERNIA 12/11/2017 STRESS ECHO 12/09/2019 Negative STRESS TEST 07/18/2017 normal STRESS TEST 03/15/2018 negative THYROID FINE NEEDLE ASPIRATION Right 04/13/2023 right mid thyroid Family History FAMILY HISTORY Problem Relation Age of Onset Cancer Father Skin Arthritis Mother Diabetes Mother Heart Mother Hypertension Mother Lipids Mother Stroke Mother Thyroid Mother Cancer Maternal Grandmother LIVER CANCER Cancer Maternal Uncle Great Uncle Cancer Maternal Uncle Great Uncle Anesthesia Problems No Family History Patient Allergies ALLERGIES Allergen Reactions Ceftriaxone Anaphylaxis Had skin testing on 12/09 at allergy office which was positive. Also had prior anaphylactic reactionon 09/30/2021. Patient should avoid ceftriaxone and all other cephalosporins. She has tolerated amoxicillin outpatient in the past. Cephalosporins Anaphylaxis Patient had anaphylaxis pre-op on 09/30 when this was given with other induction agents. Patient hadskin testing on 12/09/21 which was positive to ceftriaxone (see separate note from same day). Pleaseavoid all cephalosporins. Mushroom Anaphylaxis Peanut Anaphylaxis Peanuts Anaphylaxis Latex Rash Gabapentin Mental Status Change Patient reports having cognitive/memory issues after taking Mri Contrast [Gadol* GI Upset Current Medications Current Outpatient Medications on File Prior to Visit Medication Sig furosemide (LASIX) 20 mg tablet Take 1 tablet by mouth once daily. Take in evening loratadine (CLARITIN) 10 mg tablet Take 1 tablet by mouth once daily. traZODone (DESYREL) 100 mg tablet Take 1 tablet by mouth daily at bedtime. propranolol (INDERAL) 20 mg tablet Take 1 tablet by mouth two times a day. oxybutynin ER (DITROPAN XL) 15 mg 24 hr Extended Rel Tab Take 1 tablet by mouth once daily. furosemide (LASIX) 40 mg tablet Take 1 tablet by mouth once daily. Take in morning atorvastatin (LIPITOR) 80 mg tablet Take 1 tablet by mouth once daily. pregabalin (LYRICA) 75 mg capsule Take 1 capsule by mouth two times a day for 90 days. sulfamethoxazole-trimethoprim (BACTRIM DS) 800-160 mg per tablet Take 1 tablet by mouth every 12 hours. DULoxetine (CYMBALTA) 30 mg capsule Take 30 mg by mouth once daily. busPIRone (BUSPAR) 15 mg tablet Take 15 mg by mouth. acetaminophen (TYLENOL) 500 mg tablet Take 650 mg by mouth. magnesium hydroxide (MOM) 400 mg/5 mL suspension Take 30 mL by mouth every 6 hours. (Patient takingdifferently: Take 30 mL by mouth every 6 hours. Takes every six hours as needed) insulin glargine (LANTUS SOLOSTAR U-100 INSULIN) 100 unit/mL (3 mL) Inject 33 Units subcutaneously daily at bedtime. E11.65 insulin aspart, niacinamide, (FIASP FLEXTOUCH U-100 INSULIN) 100 unit/mL (3 mL) pen Inject 18 Unitssubcutaneously three times daily before meals. (Includes SS # 2 QAC -> Per Dr. Ermias Salomon) MAX TDD = 55 UNITS / DAY. E11.65 lisinopril (ZESTRIL, PRINIVIL) 5 mg tablet Take 1 tablet by mouth once daily. Per Dr. Ermias Salomno sodium chloride irrig solution (NACL 0.9% IRRIGATION BOTTLE) To use for catheter irrigation daily or as needed. Insulin [place], Disposable, (COMFORT EZ PEN NEEDLES) 29 gauge x 1/2 One needle with each lantus shot once a day. Dx: E13.29 on insulin PSEUDOEPHEDRINE HCL ORAL Take 30 mg by mouth as needed. ondansetron orally disintegrating (ZOFRAN ODT) 8 mg disintegrating tablet 8 mg as needed. fluticasone (FLONASE) 50 mcg/actuation nasal spray Use 2 Sprays in each nostril once daily. Rinse mouth after use. Insulin [place], Disposable, 32 gauge x 5/16 ndle Use once daily with Victoza COMPOUNDED PRESCRIPTION Stoma catheter tube. DX: Qo5.4 and K59.2 No current facility-administered medications on file prior to visit. Social History Social History Tobacco Use Smoking status: Never Smokeless tobacco: Never Vaping Use Vaping Use: Never used Substance Use Topics Alcohol use: Not Currently Comment: social Drug use: Never Review of Symptoms REVIEW OF SYSTEMS SEE HPI EXAM: BP 112/71 Pulse 84 Resp 14 Wt 98.9 kg (218 lb) LMP 09/07/2023 (Approximate) BMI 39.87 kg/m General Appearance: Well appearing, alert, in no acute distress, well-hydrated, well nourished.. Health Maintenance List Dilated Retinal Exam due on 10/26/2023 HbA1C due on 01/02/2024 Influenza Vaccine(Season Ended) due on 01/28/2024 Mammogram Screening due on 04/05/2024 Annual PCP Team Chronic Disease Visit due on 09/27/2024 BP Controlled (<130/80) due on 09/27/2024 LDL Cholesterol due on 10/01/2024 Pap Testing due on 05/02/2028 HPV Testing due on 05/02/2028 DTaP,Tdap,Td Vaccine(3 - Td or Tdap) due on 03/23/2031 Pneumococcal Vaccine(3 of 3 - PPSV23 or PCV20) due on 2046 Hepatitis C Screening Completed HIV Screening Completed HPV Vaccine Aged Out Hepatitis B Vaccine Discontinued Urine Albumin:Creatinine Ratio Discontinued Diabetic Foot Exam Discontinued Covid-19 Vaccine Discontinued ASSESSMENT/PLAN: 1. 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) - ICD9: 250.40, 791.0, ICD10: E11.29, R80.9 (primary diagnosis) - Uncontrolled - Continue current medications - Referral to Nutrition Diabetes education Endocrinology for further diabetes management - Counseled on healthy diet and regular exercise - Discussed need for and benefit of weight loss. BMI 39.87 kg/(m^2) - Discussed diabetic education issues of diabetes complications and monitoring required - CONSULT TO ENDOCRINOLOGY - CONSULT TO DIABETES EDUCATION DSME/MNT 2. 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 Diabetes mellitus with peripheral vascular disease (HCC) - ICD9: 250.70, 443.81, ICD10: E11.51 - Uncontrolled - Continue current medications - CONSULT TO ENDOCRINOLOGY - CONSULT TO DIABETES EDUCATION DSME/MNT 4. Mixed hyperlipidemia - ICD9: 272.2, ICD10: E78.2 - Uncontrolled - Continue current medications - Referral to nutrition - Counseled on healthy diet and regular exercise - Discussed need for and benefit of weight loss. BMI 39.87 kg/(m^2) Devin George APRN.BURIAL AGENT documented in this encounter[facility] Discharge summary Author Kevin Barcenas [facility] October 07, 2023 3:24pm Note Date/Time October 07, 2023 1:38p [facility] Medical Records Department [address] [place] [address] Emergency Department Summary 10/07/23 MR#: [id number] Acct: [id number] Name: DEBBY BAILON Rep #:[id number] : 1980 42 From: Kevin Barcenas MD PCP: Dr. Will Brannon MD Status:REG ER Location: ED HPI HPI - Female History of Present Illness Chief Complaint: Complaint Detail of Chief Complaint: Left flank pain began an hour ago. Informant: patient Bleeding Issue: Negative for Vaginal bleeding Vaginal Discharge Onset: Today Associated Symptoms Associated Symptoms: Negative for Dysuria, Frequency, Urgency or Hematuria Narrative Narrative: 42-year-old female past medical history including spina bifida with prior back surgery, diabetes and history of kidney stones. Complaining of left flank pain that began an hour ago. Nausea without vomiting or diarrhea. No fever. She linda chronic indwelling suprapubic catheter. States her urine is typically cloudy. Denies any fever. She has had UTIs in the past. She is on no recent antibiotics. She has had kidney stones in the past but is never needed surgery form. Prior similar symptoms: Yes Recent Illness/Hospitalization: No PFSH PFSH Medical History Anxiety and depression Arthritis Manley's palsy Cellulitis of left lower extremity Chronic back pain Chronic nausea CKD (chronic kidney disease) Colostomy in place Constipation Delayed wound healing Depression Diabetes mellitus with diabetic polyneuropathy Diabetes mellitus, type II Diabetic foot infection Diabetic polyneuropathy Diabetic ulcer of left heel with fat layer exposed DJD (degenerative joint disease) of thoracic spine Dysthymic disorder Essential hypertension Hematochezia History of kidney stones History of migraine Hydronephrosis of right kidney Hyperglycemia Hyperlipidemia Infection of bladder catheter Insomnia Lipomeningocele Lower extremity edema Microalbuminuria Morbid obesity with BMI of 40.0-44.9, adult Neurogenic bladder Neurogenic bowel Non-compliance Non-smoker Noncompliance with diabetes treatment Normochromic normocytic anemia Open wound of left foot Panic attacks PSVT (paroxysmal supraventricular tachycardia) Sepsis Sepsis Spina bifida aperta of lumbar spine Thyroid cyst Type 2 diabetes mellitus with diabetic polyneuropathy Type 2 diabetes mellitus with foot ulcer Ulcer of left heel and midfoot with fat layer exposed Uninodular goiter Urinary tract infection Urinary tract infection UTI (urinary tract infection) UTI (urinary tract infection) Weakness Home Medications furosemide 20 mg tablet 20 mg PO 2200 fluid 08/28/18 [History Last Taken 10/06/23] furosemide 40 mg tablet 40 mg PO BREAKFAST fluid 04/05/19 [History Last Taken 10/06/23] oxybutynin chloride 15 mg tablet,extended release 24 hr 15 mg PO DAILY bladder 11/12/19 [History Last Taken 10/06/23] acetaminophen 500 mg tablet 1,000 mg PO TID PRN PRN Pain Or Fever 02/12/20 [History Last Taken 09/24/20 19:24] trazodone 100 mg tablet 100 mg PO QHS sleep 01/19/21 [History Last Taken 10/06/23] atorvastatin 80 mg tablet 80 mg PO DAILY cholesterol 01/29/21 [History Last Taken 10/06/23] pen needle, diabetic 32 gauge x 5/32 (BD Ultra-Fine Hope Pen Needle) #400 ea 03/05/21 [Rx Last Taken Unknown] phenazopyridine 200 mg tablet (Pyridium) 200 mg PO BID PRN PRN Pain 11/20/21 [History Last Taken 10/06/23] glimepiride 2 mg tablet 2 mg PO BID #180 tabs 01/21/22 [Rx Last Taken 10/06/23] lisinopril 5 mg tablet 2.5 mg (1/2 x 5 mg) PO DAILY #90 tabs 01/21/22 [Rx Last Taken 10/06/23] propranolol 10 mg tablet 5 mg (1/2 x 10 mg) PO BID heart #30 tabs 01/21/22 [Rx Last Taken 10/06/23] ondansetron 4 mg disintegrating tablet 4 mg PO Q6H PRN nausea and vomiting #7 tabs 03/22/22 [Rx Last Taken 10/06/23] insulin glargine 100 unit/mL (3 mL) subcutaneous pen (Lantus Solostar U-100 Insulin) 33 unit (0.33 mL) subcut QHS dm #30 mL 09/01/22 [Rx Last Taken 10/06/23] pen needle, diabetic 32 gauge x 5/32 (BD Ultra-Fine Hope Pen Needle) #350 ea 09/01/22 [Rx Last Taken Unknown] insulin lispro 100 unit/mL subcutaneous pen (Humalog KwikPen (U-100) Insulin) 15unit (0.15 mL) subcut TID #21 mL 09/02/22 [Rx Last Taken 10/06/23] duloxetine 30 mg capsule,delayed release 30 mg PO DAILY 01/04/23 [History Last Taken 10/06/23] pregabalin 75 mg capsule 75 mg PO BID 08/13/23 [History Last Taken 10/06/23] Allergy/AdvReac Type Severity Reaction Status Date / Time ceftriaxone [From Rocephin] Allergy Hives Verified 10/07/23 13:18 mushroom Allergy Anaphylaxis Verified 10/07/23 13:18 peanut Allergy Anaphylaxis Verified 10/07/23 13:18 piperacillin [From Zosyn] Allergy NEEDS Verified 10/07/23 13:18 FOLLOW-UP tazobactam [From Zosyn] Allergy NEEDS Verified 10/07/23 13:18 FOLLOW-UP fentanyl AdvReac Low blood Verified 10/07/23 13:18 pressure gabapentin AdvReac Other Verified 10/07/23 13:18 Gadolinium-MRI Contrast AdvReac Vomiting Verified 10/07/23 13:18 Medium Latex, Natural Rubber AdvReac Rash Verified 10/07/23 13:18 vancomycin AdvReac Rash Verified 10/07/23 13:18 Family History Mother CVA (cerebral vascular accident) Thyroid disorder Diabetes Hypertension Heart disease Hyperlipidemia Myocardial infarction, Onset Age: 54 mother had diabetes Father Cancer skin Grandmother Cancer liver Other Arthritis Skin cancer Surgical History history insertion suprapubic catheter History of cholecystectomy History of dilation and curettage History of spinal surgery Hx of foot surgery Hx of ventral hernia repair S/P colostomy S/P thyroid biopsy (~11/06/19) Status post gastric surgery Social History household members: significant other Smoking Status: Never smoker alcohol intake: current substance use type: does not use ROS ROS ED ROS Narrative Nausea. No vomiting. No fever. Review of Systems ROS Unobtainable: Denies due to encephalopathy Constitutional Constitutional ED: Denies chills or fever(s) Eyes Eyes: Denies blurry vision Cardiovascular Cardiovascular: Denies chest pain Respiratory/Chest Respiratory/Chest: Denies cough or dyspnea Gastrointestinal Gastrointestinal: Reports nausea; Denies abdominal pain, constipation, diarrhea,melena or vomiting Genitourinary Genitourinary ED: Reports other Details: Suprapubic Cook catheter. ; Denies dysuria or hematuria Musculoskeletal Musculoskeletal: Denies arthralgias Integumentary Denies abscess Neurologic Neurologic: Denies headache(s) Psychiatric Psychiatric: Denies anxiety Endocrine Endocrinology: Denies heat intolerance Hematologic/Lymphatic Hematologic/Lymphatic: Denies easy bleeding Allergic/Immunologic Allergic/Immunologic ED: Denies mouth swelling EXAM Physical Exam Narrative Exam Narrative: Well-appearing 42-year-old female. Sitting upright in bed. Vital signs are stable afebrile. H EENT exam unremarkable. Mytrex membranes. Neck nontender. Lungs clear equal symmetrical bilaterally. Heart regular rhythm rate about 75 no murmur. Chest wall ribs nontender. Abdomen soft nondistended normal bowel sounds without peritoneal signs. She has a left-sided colostomy tube. Suprapubic Cook catheter. She moves all 4 extremities. She has normal integration analyst strength in her hands. She has significant weakness in both lower extremities from her history of spina bifida. That is not new or changed. She is awake andalert. Answering questions following commands. Const Vital Signs: 10/07/23 13:16 Temperature 97.2 F L Temperature Source Temporal Pulse Rate 75 Respiratory Rate 16 Blood Pressure 159/103 H Blood Pressure Mean 121 Pulse Ox 99 Oxygen Delivery Method Room Air Positive well nourished and well developed; Negative for cachectic, contracturesor unkempt General Appearance ED: well developed and NAD; Negative for unkempt, cachectic, contractures or pallor Nutritional Appearance: Negative for cachectic HEENT Reports moist mucous membranes Negative for trauma or tenderness Eyes PERRL and EOMs intact bilaterally General Eye ED: Negative for pale conjunctiva or scleral icterus Neck no lymphadenopathy, supple and no JVD General: Negative for other Thyroid: Negative for tender Lymph Lymphatic: Negative for other Chest Wall inspection of chest normal and palpation of chest normal Chest: Negative for other Resp normal respiratory effort and clear to auscultation bilaterally Effort and Inspection: Negative for pain with movement Auscultation: Negative for rales, rhonchi, wheezes or diminished lung sounds Cardio regular rate, regular rhythm, S1 normal heart sound, no murmurs and no JVD Rate: Negative for bradycardia or tachycardic Rhythm: Negative for abnormal rhythm GI normal to inspection, nondistended, normoactive bowel sounds, soft to palpation,non-tender, non-distended and no masses Auscultation: normoactive bowel sounds Palpation: Negative for tender, guarding, rigid, hepatomegaly, splenomegaly or mass Back/Spine no CVA tenderness Back/Spine Narrative: . Lumbar tenderness bilaterally. No redness or warmth or signs of trauma. General Back: Negative for CVA tenderness Cervical Spine: Negative for cervical spine tenderness Thoracic Spine / Upper Back: Negative for thoracic spinal tenderness Lumbar Spine / Lower Back: Negative for lumbar spinal tenderness Extremity Negative for normal to inspection or full ROM Extremity Narrative: Bilateral lower extremity weakness. Chronic. General Extremety ED: Negative for edema or tenderness General Extremity: Negative for edema Neuro oriented x3 and CN's II-XII intact bilaterally Sensorium / Orientation: alert, oriented to person, oriented to place and oriented to time; Negative for confused, lethargic or stuporous Motor Exam: strength abnormal Psych mental status grossly normal Appearance: Negative for unkempt Attitude: No agitated Speech: No other Mood & Affect: Negative for depressed, anxious or tearful Skin no rashes or lesions noted and no wounds General Skin Exam: Negative for jaundice or pallor Rashes: No rashes noted Trauma: Negative for other MDM MDM MDM Narrative Medical decision making narrative: 42-year-old female with prior spina bifida, diabetes and chronic indwelling Cook catheter and colostomy. Complaining of left flank pain with history of kidney stones. CAT scan labs being obtained. Treated with Zofran for nausea. Morphine for pain. Repeat exam patient is doing well at 3:20 PM. Will be discharged home. Flank pain uncertain etiology. Pain well-controlled at this time. She is comfortablebeing discharged. History & Record Review Discussion w/independent historian: Patient Additional record(s) reviewed:: Prior inpatient record, Prior outpatient record,Prior ED visit and Prior labs Lab Data Attestation: I reviewed the patient's lab results. Lab results narrative: CBC shows white count 9.3. H&H 13.9 and 41. Platelets 225. Chemistry shows sodium 134 gap 6. Normal BUN of 18 creatinine of 0.8. Glucose 267. Serum test negative. UA shows 5-10 red cells. 5-10 white cells. Butis contaminated with 10-25 epithelial cells and 4+ bacteria. That will not be treated. CT flank showed no acute abnormalities per the radiologist. Labs: Laboratory Results - last 24 hr 10/07/23 10/07/23 13:38 13:50 WBC 11.3 H RBC 4.66 Hgb 13.9 Hct 41.7 MCV 89.5 MCH 29.8 MCHC 33.3 RDW Std Deviation 43.9 RDW Coeff of Claude 13.5 Plt Count 225 MPV 10.4 Immature Gran % (Auto) 1.300 H Neut % (Auto) 62.2 Lymph % (Auto) 26.2 [place] % (Auto) 8.4 Eos % (Auto) 1.2 Baso % (Auto) 0.7 Absolute Neuts (auto) 7.0 Absolute Lymphs (auto) 2.95 Nucleated RBC % 0 Sodium 134 L Potassium 4.0 Chloride 105 Carbon Dioxide 23.0 Anion Gap 6 BUN 18 Creatinine 0.83 Estim Creat Clear Calc 96.23 Est GFR (MDRD) Af Amer 97 Est GFR (MDRD) Non-Af 80 BUN/Creatinine Ratio 21.7 H Glucose 267 H Calcium 9.1 Serum , Qual NEGATIVE Urine Color Yellow Urine Clarity Cloudy Urine pH 6.5 Ur Specific Isabella 1.020 Urine Protein 100 H Urine Glucose (UA) 1000 H Urine Ketones Negative Urine Occult Blood 50 H Urine Nitrite Negative Urine Bilirubin Negative Urine Urobilinogen Normal Ur Leukocyte Esterase 500 H Urine RBC 5-10 SEEN Urine WBC 50-100 SEEN Ur Squamous Epith Cells 10-25 SEEN Urine Bacteria 4+ Urine Mucus 0 SEEN Radiography Diagnostic Testing: Clinical Impression(s) from Imaging Studies Abdomen/Pelvis CT 10/07/23 13:32 IMPRESSION: No suspicious solid organ abnormality, nonobstructing right nephrolithiasis Stable left lower quadrant ostomy with multiple bowel loops but no CT evidence of acute inflammation or obstruction Suprapubic catheter noted within the bladder, no complications Electronically Signed: Jarod Jaimes MD at 14:44 EDT Reading Location ID and State: [facility] / [place] , Service support , Discharge Plan Triage Chief Complaint: Complaint ED Provider: Kevin Barcenas Dx/Rx/DC Orders Clinical Impression: Acute flank pain, History of spina bifida, History of renal stone, History of diabetes mellitus Instructions: ED Flank Pain, Uncertain Cause Prescriptions: No Action atorvastatin 80 mg tablet 80 mg PO DAILY Patient Comments: Take 1 tablet by mouth once daily. (DME) pen needle, diabetic [BD Ultra-Fine Hope Pen Needle] 32 gauge x 5/32 needle See Rx Instructions .ROUTE .MEDSUPPLY Qty: 400 6RF Rx Instructions: 4x/day insulin glargine [Lantus Solostar U-100 Insulin] 100 unit/mL (3 mL) insulin pen 33 unit SC QHS Qty: 30 1RF (DME) pen needle, diabetic [BD Ultra-Fine Hope Pen Needle] 32 gauge x 5/32 needle See Rx Instructions .ROUTE .MEDSUPPLY Qty: 350 1RF Rx Instructions: 4 times daily furosemide 20 MG tablet 20 mg PO 2200 Hold Instructions: Resume on 11/24/21. Rx Instructions: 20 mg in the evening furosemide 40 MG tablet 40 mg PO BREAKFAST Hold Instructions: Resume on 11/24/21. oxybutynin chloride 15 mg tablet extended release 24hr 15 mg PO DAILY acetaminophen 500 MG tablet 1,000 mg PO TID PRN PRN (Reason: Pain Or Fever) trazodone 100 mg tablet 100 mg PO QHS Patient Comments: Take 1 tablet by mouth daily at bedtime. phenazopyridine [Pyridium] 200 MG tablet 200 mg PO BID PRN PRN (Reason: Pain) glimepiride 2 mg tablet 2 mg PO BID Qty: 180 3RF Rx Instructions: Hold if glucose less than 130 mg/dl propranolol 10 MG tablet 5 mg PO BID Qty: 30 0RF Rx Instructions: Hold for heart less than 60 or systolic blood pressure less than 100 mmHg. lisinopril 5 mg tablet 2.5 mg PO DAILY Qty: 90 3RF Rx Instructions: Hold for SBP less than 130 mmHg ondansetron 4 mg tablet,disintegrating 4 mg PO Q6H PRN (Reason: nausea and vomiting) Qty: 7 0RF duloxetine 30 mg capsule,delayed release(DR/EC) 30 mg PO DAILY Patient Comments: TAKE 1 CAPSULE BY MOUTH DAILY pregabalin 75 mg capsule 75 mg PO BID insulin lispro [Humalog KwikPen Insulin] 100 unit/mL insulin pen 15 unit subcut TID MDD 60 Qty: 21 5RF Rx Instructions: 180-220 +4 221-260 +6 261-300 8 >300 +10 Primary Care Provider: Will Brannon Referrals: Will Brannon MD [Primary Care Provider] - 3-5 Days if not improving Activity Restrictions/Additional Instructions: Your CAT scan labs look good. No specific cause for your pain. Motrin and Tylenol for pain. Follow-up if not improving. Disposition Disposition: Home, Self Care What to do if you have Problems For any increased pain, shortness of breath, bleeding, nausea or vomiting, chestpain, or any unexpected problems, contact your Primary Care Provider. Call [facility] ([phone]) or report to the closest Emergency Room. Call 911 if necessary. 10/07/23 1524 <Electronically signed by Kevin Barcenas MD> Cosigner Signature (if applicable): CC: Dr. Will Brannon MD ~ Signed [facility] Work Phone: [phone]) 592-509605-09-2024 Telephone encounter Note* Telephone Encounter - Jeaneth Morales MA - 10/05/2023 2:58 PM EDT Pt notified- follow up appointment scheduled. Patient states she had been seeing Dr. Monson for endocrinology, she has not seen her since last year. Jeaneth Morales MA [facility]05-09-2024 Miscellaneous Notes* Telephone Encounter - Jeaneth Morales MA - 10/05/2023 2:58 PM EDT Pt notified- follow up appointment scheduled. Patient states she had been seeing Dr. Monson for endocrinology, she has not seen her since last year. Jeaneth Morales MA * Telephone Encounter - Devin George APRN.CNP - 10/05/2023 2:33 PM EDT Please have patient schedule appointment to discuss labs and find out who she sees for endocrinology as her Hgba1c has increased. documented in [facility] encounter[facility] Telephone encounter Note * Telephone Encounter - Devin George APRN.CNP - 10/05/2023 2:33 PM EDT Please have patient schedule appointment to discuss labs and find out who she sees for endocrinology as her Hgba1c has increased. [facility]05-07-[facility] History of Present illness Narrative* Jessie Alanis MA - 10/03/2023 3:56 PM EDT In the supine position, the old 18 Fr suprapubic tube was removed with no difficulty. The area was prepped, and a new 18 Fr Cook was inserted through the stoma site into the bladder. The balloon wasinflated with 10 cc's of sterile saline. The catheter irrigated easily with 60ml sterile saline with good return. The pt tolerated the procedure well without complications. Follow up as discussed with SAVANA Hillman. Jessie Alanis MA documented in this encounter[facility] History of Present illness Narrative* Devin George APRN.BURIAL AGENT - 09/28/2023 5:11 PM EDT Images from the original note were not included. Debby Bailon is a 42 year old female here for a Medicare wellness visit. Medicare Health Risk Assessment General Health Poor Exercise: Minutes/Day 90 min Exercise: Days/Week 3 days Alcohol: Daily Use Monthly or less Alcohol: Drinks/Day 1 or 2 Alcohol: 6 or more drinks Never Feel off balance Yes Concerns: Teeth/Dentures No Concerns: Sexual function No Troubled by feelings Anxious; Stressed; Lonely Frequency: Eating healthy diet Several days ADLs requiring help Grocery shopping; Cooking; Housework; Bathing; Grooming; Dressing; Sitting or standing; Walking; Driving Safety precautions in home/vehicle Yes Smoke, vape, chews tobacco No Difficulty hearing No Difficulty seeing No Current Providers Specialists: I have reviewed specialist-related care of the patient in the medical record. Current care team: Patient Care Team: Will Brannon MD as PCP - General (Family Medicine) [facility] center Medical/Family history review Reviewed and updated problem list, medical/surgical/family/social history, medications, and allergies. Opioid use review Opioid Medications (last 90 days) No data to display Depression screening Depression Screening PHQ-2 Score PHQ-9 Score 07/14/2023 2 10 Depression screening tool completed and reviewed. Based on score and interview, patient is already diagnosed with depression. Screening tool discussed with patient, and I recommended continuing current plan of care. Functional Observation Was the patient's Timed Up & Go test unsteady or ? 12 seconds? No Advance Care Planning Patient did not wish or was not able to name a surrogate decision maker or provide an advance care plan Measurements BP 110/78 Pulse 85 Resp 14 Wt 215 lb (97.5kg) LMP 09/07/2023 Vision Screening: Follows with optometry/ophthalmology Assessment/Plan Medicare annual wellness visit, subsequent (Z00.00) - Counseled on healthy diet and regular exercise - Fall avoidance information provided - Personalized prevention plan provided - Discussed need for and benefit of weight loss. BMI 39.32 kg/(m^2) Chief Complaint Patient presents with: Medicare Wellness Exam HPI Debby Bailon is a 42 year old female who presents here today for Above Complaints.. Patient presents for medicare wellness exam. Patient reports increased swelling in her bilat lower extremities. Patient currently taking lasix 40mg in am and 20mg at night. Patient reports this has been worsening over the last couple of weeks. Swelling improves with elevation of legs. Denies SOB, CP. Reports palpitations, has history and takes propranolol. Past medical history, appointments, medications, allergies reviewed. Previous Medical History PAST MEDICAL HISTORY Diagnosis Date Amputation of left great toe ([facility]) 06/25/2020 Arthritis started age 19 Bilateral leg edema 07/16/2018 Cervical radiculopathy 05/02/2013 Chronic pain 02/12/[address] ([facility]) 09/30/2021 Constipation due to outlet dysfunction 10/07/2021 Cyst of ovary 11/28/2011 Diabetes mellitus with peripheral vascular disease ([facility]) 03/29/2023 Diabetic eye exam ([facility]) 06/17/2016 Last done: 01/25/2017 Diabetic eye exam (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 Will monitor. Lipomeningocele, sacral level 09/12/2013 Lumbago 02/12/2015 Major depressive disorder, recurrent, mild ([facility]) 03/29/2023 Medicare annual wellness visit, subsequent 02/28/2018 last done: 02/28/2018 Migraine without aura and without status migrainosus, not intractable 10/18/2016 Miscarriage Mixed hyperlipidemia 02/28/2018 Muscle weakness of left lower extremity 08/07/2013 Neck pain 05/02/2013 Neurogenic bladder 02/12/2015 Neurogenic bowel 01/06/2016 Neuropathy 02/12/2015 post back surgery with secondary infection. Seeing Dr. Gregg Non-compliance 09/02/2022 Even stated in endocrine note from 09/01/2022 Numbness and tingling of left arm and leg 08/07/2013 Obesity, Class II, BMI 35-39.9 02/12/2015 Panic attacks Paroxysmal SVT (supraventricular tachycardia) (HCC) 07/03/2017 Per 48 Hr event monitor 06/30/2017 Primary insomnia 02/17/2016 S/P hernia repair 12/11/2017 Spina bifida (HCC) 01/06/2016 Thyroid cyst 01/01/2018 Complex right sided cysts. US 12/2017, biopsy per Dr. Josue 01/23/2018 benign. Repeat US in a year. 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 nl AMPUTATION TOE,MT-P JT Left 02/11/2020 left big toe CATH, SUPRAPUBIC/CYSTOSCOPIC 11/07/2018 COLOSTOMY 10/01/2021 CYSTOSCOPY,REMV CALCULUS,COMPLIC 11/10/2020 DILATION & CURETTAGE DX&/THER NONOBSTETRIC Dilation & curettage HERNIA REPAIR W/MESH 2018 LEXISCAN STRESS TEST 07/20/2018 negative NUCLEAR STRESS LEXISCAN (CARD) 10/24/2018 negative PAST SURGICAL HISTORY OF 2010 cholecystectomy PAST SURGICAL HISTORY OF 09/2012 back surgery x2 PAST SURGICAL HISTORY OF Left & 02/2014 foot x2 PAST SURGICAL HISTORY OF 07/2015 Bowles stoma PAST SURGICAL HISTORY OF 09/30/2021 Laparoscopic end colostomy PAST SURGICAL HISTORY OF Left 01/2021 bone removed left foot REPAIR UMBILICAL HERNIA 12/11/2017 STRESS ECHO 12/09/2019 Negative STRESS TEST 07/18/2017 normal STRESS TEST 03/15/2018 negative THYROID FINE NEEDLE ASPIRATION Right 04/13/2023 right mid thyroid Family History FAMILY HISTORY Problem Relation Age of Onset Cancer Father Skin Arthritis Mother Diabetes Mother Heart Mother Hypertension Mother Lipids Mother Stroke Mother Thyroid Mother Cancer Maternal Grandmother LIVER CANCER Cancer Maternal Uncle Great Uncle Cancer Maternal Uncle Great Uncle Anesthesia Problems No Family History Patient Allergies ALLERGIES Allergen Reactions Ceftriaxone Anaphylaxis Had skin testing on 12/09 at allergy office which was positive. Also had prior anaphylactic reactionon 09/30/2021. Patient should avoid ceftriaxone and all other cephalosporins. She has tolerated amoxicillin outpatient in the past. Cephalosporins Anaphylaxis Patient had anaphylaxis pre-op on 09/30 when this was given with other induction agents. Patient hadskin testing on 12/09/21 which was positive to ceftriaxone (see separate note from same day). Pleaseavoid all cephalosporins. Mushroom Anaphylaxis Peanut Anaphylaxis Peanuts Anaphylaxis Latex Rash Gabapentin Mental Status Change Patient reports having cognitive/memory issues after taking Mri Contrast [Gadol* GI Upset Current Medications Current Outpatient Medications on File Prior to Visit Medication Sig pregabalin (LYRICA) 75 mg capsule Take 1 capsule by mouth two times a day for 90 days. sulfamethoxazole-trimethoprim (BACTRIM DS) 800-160 mg per tablet Take 1 tablet by mouth every 12 hours. atorvastatin (LIPITOR) 80 mg tablet Take 1 tablet by mouth once daily. furosemide (LASIX) 40 mg tablet Take 1 tablet by mouth once daily. Take in morning oxybutynin ER (DITROPAN XL) 15 mg 24 hr Extended Rel Tab Take 1 tablet by mouth once daily. propranolol (INDERAL) 20 mg tablet Take 1 tablet by mouth two times a day. traZODone (DESYREL) 100 mg tablet Take 1 tablet by mouth daily at bedtime. furosemide (LASIX) 20 mg tablet Take 1 tablet by mouth once daily. Take in evening DULoxetine (CYMBALTA) 30 mg capsule Take 30 mg by mouth once daily. loratadine (CLARITIN) 10 mg tablet Take 1 tablet by mouth once daily. busPIRone (BUSPAR) 15 mg tablet Take 15 mg by mouth. acetaminophen (TYLENOL) 500 mg tablet Take 650 mg by mouth. magnesium hydroxide (MOM) 400 mg/5 mL suspension Take 30 mL by mouth every 6 hours. (Patient takingdifferently: Take 30 mL by mouth every 6 hours. Takes every six hours as needed) insulin glargine (LANTUS SOLOSTAR U-100 INSULIN) 100 unit/mL (3 mL) Inject 33 Units subcutaneously daily at bedtime. E11.65 insulin aspart, niacinamide, (FIASP FLEXTOUCH U-100 INSULIN) 100 unit/mL (3 mL) pen Inject 18 Unitssubcutaneously three times daily before meals. (Includes SS # 2 QAC -> Per Dr. Ermias Salomon) MAX TDD = 55 UNITS / DAY. E11.65 lisinopril (ZESTRIL, PRINIVIL) 5 mg tablet Take 1 tablet by mouth once daily. Per Dr. Ermias Salomon sodium chloride irrig solution (NACL 0.9% IRRIGATION BOTTLE) To use for catheter irrigation daily or as needed. Insulin [place], Disposable, (COMFORT EZ PEN NEEDLES) 29 gauge x 1/2 One needle with each lantus shot once a day. Dx: E13.29 on insulin PSEUDOEPHEDRINE HCL ORAL Take 30 mg by mouth as needed. ondansetron orally disintegrating (ZOFRAN ODT) 8 mg disintegrating tablet 8 mg as needed. fluticasone (FLONASE) 50 mcg/actuation nasal spray Use 2 Sprays in each nostril once daily. Rinse mouth after use. Insulin [place], Disposable, 32 gauge x 5/16 ndle Use once daily with Victoza COMPOUNDED PRESCRIPTION Stoma catheter tube. DX: Qo5.4 and K59.2 No current facility-administered medications on file prior to visit. Social History Social History Tobacco Use Smoking status: Never Smokeless tobacco: Never Vaping Use Vaping Use: Never used Substance Use Topics Alcohol use: Not Currently Comment: social Drug use: Never Review of Symptoms REVIEW OF SYSTEMS SEE HPI EXAM: BP 110/78 Pulse 85 Resp 14 Wt 97.5 kg (215 lb) LMP 09/07/2023 (Approximate) BMI 39.32 kg/m General Appearance: Well appearing, alert, in no acute distress, well-hydrated, well nourished.. Skin: Skin color, texture, turgor normal, no suspicious rashes or lesions. Lungs: Lungs clear to auscultation. No wheezing, rhonchi, rales.. Heart: RRR without murmur, gallop, or rubs. No ectopy. Extremities: Edema: nonpitting edema to bilateral lower extremities. Peripheral Pulses: Normal. Health Maintenance List BP Controlled (<130/80) due on 07/28/2022 HbA1C due on 07/13/2023 Dilated Retinal Exam due on 10/26/2023 Influenza Vaccine(Season Ended) due on 01/28/2024 Annual PCP Team Chronic Disease Visit due on 03/29/2024 Mammogram Screening due on 04/05/2024 LDL Cholesterol due on 04/12/2024 Pap Testing due on 05/02/2028 HPV Testing due on 05/02/2028 DTaP,Tdap,Td Vaccine(3 - Td or Tdap) due on 03/23/2031 Pneumococcal Vaccine(3 of 3 - PPSV23 or PCV20) due on 2046 Hepatitis C Screening Completed HIV Screening Completed HPV Vaccine Aged Out Hepatitis B Vaccine Discontinued Urine Albumin:Creatinine Ratio Discontinued Diabetic Foot Exam Discontinued Covid-19 Vaccine Discontinued ASSESSMENT/PLAN: 1. Medicare annual wellness visit, subsequent - ICD9: V70.0, ICD10: Z00.00 (primary diagnosis) - Counseled on healthy diet and regular exercise - Discussed need and benefit for weight loss. BMI 39.32 kg/(m^2) - Discussed safe sex practices and avoidance of STIs 2. 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 BMI 39.32 kg/(m^2) - HEMOGLOBIN A1C - COMPREHENSIVE METABOLIC PANEL 3. 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 BMI 39.32 kg/(m^2) - HEMOGLOBIN A1C - COMPREHENSIVE METABOLIC PANEL 4. Diabetes mellitus with peripheral vascular disease (HCC) - ICD9: 250.70, 443.81, ICD10: E11.51 - Control undetermined, due for labs - Continue current medications - Counseled on healthy diet and regular exercise - Discussed need for and benefit of weight loss. BMI 39.32 kg/(m^2) - HEMOGLOBIN A1C - COMPREHENSIVE METABOLIC PANEL 5. Mixed hyperlipidemia - ICD9: 272.2, ICD10: E78.2 - Control undetermined, due for labs - Counseled on healthy diet and regular exercise - Discussed need for and benefit of weight loss. BMI 39.32 kg/(m^2) - LIPID PANEL, NONFASTING - ATORVASTATIN 80 MG TABLET 6. Low TSH level - ICD9: 794.5, ICD10: R79.89 - THYROID STIMULATING HORMONE 7. Bilateral leg edema - ICD9: 782.3, ICD10: R60.0 - COMPREHENSIVE METABOLIC PANEL - FUROSEMIDE 20 MG TABLET - FUROSEMIDE 40 MG TABLET 8. Medication management - ICD9: V58.69, ICD10: Z79.899 - COMPLETE BLOOD COUNT AND DIFFERENTIAL 9. Paroxysmal SVT (supraventricular tachycardia) (HCC) - ICD9: 427.0, ICD10: I47.10 - ECG COMPLETE-NSR - PROPRANOLOL 20 MG TABLET 10. Hyperthyroidism - ICD9: 242.90, ICD10: E05.90 - THYROID STIMULATING HORMONE 11. Seasonal allergic rhinitis, unspecified trigger - ICD9: 477.9, ICD10: J30.2 - LORATADINE 10 MG TABLET 12. Colostomy in place (HCC) - ICD9: V44.3, ICD10: Z93.3 13. Encounter for care or replacement of suprapubic tube (HCC) - ICD9: V55.5, ICD10: Z43.5 - OXYBUTYNIN CHLORIDE ER 15 MG TABLET,EXTENDED RELEASE 24 HR 14. Primary insomnia - ICD9: 307.42, ICD10: F51.01 - TRAZODONE 100 MG TABLET Devin George APRN.BURIAL AGENT documented in this encounterOur [facility] Instructions* Patient Instructions* Devin George APRN.BURIAL AGENT - 09/28/2023 5:11 PM EDT Screening schedule The following prevention plan is recommended: BP Controlled (<130/80) due on 07/28/2022 HbA1C due on 07/13/2023 Dilated Retinal Exam due on 10/26/2023 WHAT YOU CAN DO TO PREVENT FALLS Many falls can be prevented. By making some changes, you can lower your chances of falling. Four things YOU can do to prevent falls for you* and your caregiver 1. Begin a regular exercise program Exercise is one of the most important ways to lower your chances of falling. It makes you stronger and helps you feel better. Exercises that improve balance and coordination (like Nitesh Chi) are the most helpful. Lack of exercise leads to weakness and increases your chances of falling. Ask your doctor or health care provider about the best type of exercise program for you. 2. Have your health care provider review your medicines Have your doctor or pharmacist review all the medicines you take, even [id number] medicines. As you get older, the way medicines work in your body can change. Some medicines, or combinations of medicines, can make you sleepy or dizzy andcan cause you to fall. 3. Have your vision checked Have your eyes checked by an eye doctor at least once a year. You may be wearing the wrong glasses or have a condition like glaucoma or cataracts that limits your vision. Poor vision can increase your chances of falling. 4. Make your home safer About half of all falls happen at home. To make your home safer: Remove things you can trip over (like papers, books, clothes, and shoes) from stairs and places where you walk. Remove small throw rugs or use double-sided tape to keep the rugs from slipping. Keep items you use often in cabinets you can reach easily without using a step stool. Have grab bars put in next to your toilet and in the tub or shower. Use non-slip mats in the bathtub and on shower floors. Improve the lighting in your home. As you get older, you need brighter lights to see well. Hang light-weight curtains or shades to reduce glare. Have handrails and lights put in on all staircases. Wear shoes both inside and outside the house. Avoid going barefoot or wearing slippers. For more information, contact: Centers for Disease Control and Prevention www.cdc.gov/injury * This information may not apply if you have certain medical conditions. documented in this encounterOur [facility] Hospital Discharge instructions Patient Education 09/24/2023 23:57:28 Abdominal Pain, Unknown Cause, (Female) Unknown Causes of Abdominal Pain (Female) The exact cause of your belly (abdominal) pain is not clear. This does not mean that this is something to worry about. Everyone likes to know the exact cause of the problem. But sometimes with belly pain, there is no clear-cut cause, and this could be a good thing. The good news is that your symptoms can be treated, and you will feel better. Your condition does not seem serious now. But sometimes the signs of a serious problem may take more time to appear. For this reason, it is important for you to watch for any new symptoms, problems, or worsening of your condition. Over the next few days, the abdominal pain may come and go. Or it may be constant. Other common symptoms can include nausea and vomiting. Sometimes it can be difficult to tell if you feel nauseous. You may just feel bad and not connect that feeling to nausea. Constipation, diarrhea, and a fever maygo along with the pain. The pain may continue even if treated correctly over the following days. Depending on how things go, sometimes the cause can become clear and may need more or different treatment. Additional evaluations, medicines, or tests may also be needed. Home care Your healthcare provider may prescribe medicine for pain, symptoms, or an infection. Follow the healthcare provider's instructions for taking these medicines. General care Rest as much as you can until your next exam. No strenuous activities. Try to find positions that ease discomfort. A small pillow placed on the abdomen may help relieve pain. Something warm on your abdomen (such as a heating pad) may help, but be careful not to burn yourself. Diet Don t force yourself to eat, especially if having cramps, vomiting, or diarrhea. Water is important so you don't get dehydrated. Soup may also be good. Sports drinks may also help,especially if they are not too acidic. Don't drink sugary drinks as this can make things worse. Take liquids in small amounts. Don t guzzle them. Caffeine sometimes makes the pain and cramping worse. Don t take dairy products if you have vomiting or diarrhea. Don't eat large amounts at a time. Wait a few minutes between bites. Eat a diet low in fiber (called a low-residue diet). Foods allowed include refined breads, white rice, fruit and vegetable juices without pulp, tender meats. These foods will pass more easily throughthe intestine. Don t have whole-grain foods, whole fruits and vegetables, meats, seeds and nuts, fried or fatty foods, dairy, alcohol and spicy foods until your symptoms go away. Follow-up care Follow up with your healthcare provider, or as advised, if your pain does not begin to improve in the next 24 hours. Call 911 Call 911 if any of these occur: Trouble breathing Confusion Fainting or loss of consciousness Rapid heart rate Seizure When to seek medical advice Call your healthcare provider right away if any of these occur: Pain gets worse or moves to the right lower abdomen New or worsening vomiting or diarrhea Swelling of the abdomen Unable to pass stool for more than 3 days Fever of 100.4 F (38 C) or higher, or as directed by your healthcare provider. Blood in vomit or bowel movements (dark red or black color) Yellow color of eyes and skin (jaundice) Weakness, dizziness Chest, arm, back, neck, or jaw pain Unexpected vaginal bleeding or missed period Can't keep down liquids or water and you are getting dehydrated [id number] [employer] [place] [address]. All rights reserved. This information is not intended as a substitute for professional medical care. Always follow yourhealthcare professional's instructions. Follow Up Care 09/24/2023 22:10:47 With:WILL BRANNON MD Address: [address] [place] [address]- When:2-[address] [facility] 04-29-2024 Note Discharge Instructions Thank you for allowing [facility] to assist you with your healthcare needs. The following is importantdischarge information regarding your hospital visit. Diagnosis from Today's Visit Abdominal pain Catheter check Pain in back What to Do Next Instructions from Your Care Team Discharge Return to Work, School, or Sports (Return to Work, School, or Sports) - Ordered -- 09/26/23, May return to: work, 09/24/23 23:57:00 EDT Post Acute Orders No qualifying data available. You Need to Schedule the Following Appointments Follow Up with WILL BRANNON MD When Within 2-4 days Where: [facility] [place] [address]- Allergies Mushrooms (Throat swelling) Peanuts (Throat swelling) Rocephin (Hives) cephalosporins (Anaphylaxis, Hives) gabapentin (psychotic breakdown) Contrast dye (Vomiting) Latex (Hives) penicillin (Unknown) Medications Please ask your primary doctor or pharmacist before taking any other medication not listed, including over the counter drugs, herbal medications, vitamins and or supplements as they may interact withyour home medications. Please take this list to your next doctor s visit. Bring all medications you take, including over the counter medications, herbals and other supplements with you to your doctor s visit. Patients and families are reminded to discard old lists and to update any records with all medication providers or retail pharmacies. Education Materials Unknown Causes of Abdominal Pain (Female) The exact cause of your belly (abdominal) pain is not clear. This does not mean that this is something to worry about. Everyone likes to know the exact cause of the problem. But sometimes with belly pain, there is no clear-cut cause, and this could be a good thing. The good news is that your symptoms can be treated, and you will feel better. Your condition does not seem serious now. But sometimes the signs of a serious problem may take more time to appear. For this reason, it is important for you to watch for any new symptoms, problems, or worsening of your condition. Over the next few days, the abdominal pain may come and go. Or it may be constant. Other common symptoms can include nausea and vomiting. Sometimes it can be difficult to tell if you feel nauseous. You may just feel bad and not connect that feeling to nausea. Constipation, diarrhea, and a fever maygo along with the pain. The pain may continue even if treated correctly over the following days. Depending on how things go, sometimes the cause can become clear and may need more or different treatment. Additional evaluations, medicines, or tests may also be needed. Home care Your healthcare provider may prescribe medicine for pain, symptoms, or an infection. Follow the healthcare provider's instructions for taking these medicines. General care Rest as much as you can until your next exam. No strenuous activities. Try to find positions that ease discomfort. A small pillow placed on the abdomen may help relieve pain. Something warm on your abdomen (such as a heating pad) may help, but be careful not to burn yourself. Diet Don t force yourself to eat, especially if having cramps, vomiting, or diarrhea. Water is important so you don't get dehydrated. Soup may also be good. Sports drinks may also help,especially if they are not too acidic. Don't drink sugary drinks as this can make things worse. Take liquids in small amounts. Don t guzzle them. Caffeine sometimes makes the pain and cramping worse. Don t take dairy products if you have vomiting or diarrhea. Don't eat large amounts at a time. Wait a few minutes between bites. Eat a diet low in fiber (called a low-residue diet). Foods allowed include refined breads, white rice, fruit and vegetable juices without pulp, tender meats. These foods will pass more easily throughthe intestine. Don t have whole-grain foods, whole fruits and vegetables, meats, seeds and nuts, fried or fatty foods, dairy, alcohol and spicy foods until your symptoms go away. Follow-up care Follow up with your healthcare provider, or as advised, if your pain does not begin to improve in the next 24 hours. Call 911 Call 911 if any of these occur: Trouble breathing Confusion Fainting or loss of consciousness Rapid heart rate Seizure When to seek medical advice Call your healthcare provider right away if any of these occur: Pain gets worse or moves to the right lower abdomen New or worsening vomiting or diarrhea Swelling of the abdomen Unable to pass stool for more than 3 days Fever of 100.4 F (38 C) or higher, or as directed by your healthcare provider. Blood in vomit or bowel movements (dark red or black color) Yellow color of eyes and skin (jaundice) Weakness, dizziness Chest, arm, back, neck, or jaw pain Unexpected vaginal bleeding or missed period Can't keep down liquids or water and you are getting dehydrated [id number] [employer]. [address] [place] [address]. All rights reserved. This information is not intended as a substitute for professional medical care. Always follow yourhealthcare professional's instructions. Additional Information VACCINATE! IT SAVES LIVES! Members of the community who have not yet received the COVID-19 vaccine and would like to receive it can visit one of [facility] vaccine clinics. There are many vaccine clinic locations within the [facility]. For locations and available times, please visit [email or web address]/. It is important to note that some COVID mobile vaccine clinics are held outdoors and may be canceled in rainy or stormy conditions. To learn more about pediatric vaccinations (ages 5-11), we invite you to visit the [facility] webpage. [email or web address]/[email or web address] [email or web address] learn more about the COVID-19 vaccine, we invite you to visit the CDC website for a list of frequently asked questions. https://www.cdc.gov/coronavirus/2019-ncov/vaccines/faq.html [email or web address] Patient Portal Access Instructions: Stay connected with your healthcare team and access your personal medical information anytime with the [email or web address] Patient Portal. If you would like a full copy of your medical records please contact the [facility] Medical Records Department Monday through Monday between 8a.m. and 4:30p.m. Please follow the directions below to access the portal: 1.Access the email account you provided upon registration to the [facility].2.Look for an invitation email from [facility].3.Open the email and access the invitation link: Accept Invitation to [facility].Fill in the required hartley to create your account. Sign into www.[employer] with your username and password that you created in the above steps to stay up to date. You can then view a summary of results, a summary of your visits, and the ability to download your summaries to your computer or send the information securely to a physician. Remember that your healthcare information is confidential, so carefully consider who you will allow to register on the [email or web address] Patient Portal for access to your information. You can also access the [email or web address] Patient Portal on the [employer]. Simply click on Health Records under [employer] and then click on the [employer] logo. HOW TO SAFELY DISPOSE OF PRESCRIPTION MEDICATIONS Please use one of the following methods to safely dispose of your unused medications. 1.Use a drug disposal kit: the drug disposal pouch allows you to safely discard your old and unuseddrugs. Ask your nurse to give you one when you are discharged.2.Visit a local take-back location: Many local pharmacies and police departments have programs that collect old and unwanted prescriptiondrugs. Call your local pharmacy or go to http://bit.krishna/0Y9Pf6l to find one close to you.3.Make use of household items: Use cat litter or old coffee grounds to dispose medications if other options arenot available. Mix your drugs with these household products, seal them in an airtight container andthrow it into the garbage. Call [facility]: [phone] to be sure your drugs can be disposed of in this way. Some medicines may require a different approach.4.Never flush your medications down the toilet. IF YOU HAVE BEEN PRESCRIBED AN OPIOIDS FOR PAIN If you have been prescribed an opioid (such as hydrocodone, oxycodone or morphine), it is critical to understand the possible side effects and risks of opioid pain medications. Even when taken as directed, opioids can have several side effects including: Tolerance, meaning you might need to take more of a medication for the same pain relief. Nausea, vomiting and/or constipation. Sleepiness, dizziness, dry mouth, confusion, depression or itching. Physical dependence, meaning you have withdrawal symptoms when a medication is stopped ? this can develop within a few days. KNOW YOUR RESPONSIBILITIES It is important to know exactly how much and how often to take the opioid pain medications you are prescribed. Never take opioids in higher amounts or more often than prescribed. Do not combine opioids with alcohol or other drugs that cause drowsiness, such as benzodiazepines, also known as benzos,including diazepam and alprazolam, muscle relaxants or sleep aids. Never sell or share prescriptionopioids. This is illegal. Store opioids in a secure place and out of reach of others (including children, family, friends and visitors). The last page(s) of this document has been signed and retained as a CHART COPY Signatures Patient Education Materials Abdominal Pain, Unknown Cause, (Female) Medication Leaflets My discharge plan and instructions have been reviewed and explained to me and IUVALDO ANGELA Lunderstand my current condition and have read and understand these discharge instructions. I have received a written copy of the plan/instructions. If I have questions, I am aware that I should contact my doctor. 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 Multiplanar reformatted images are provided for review. Automated exposure control, iterative reconstruction, and/or weight based adjustment of the mA/kV was utilized to reduce the radiation dose to as low as reasonably achievable. COMPARISON: CT abdomen pelvis 07/20/2023 HISTORY: ORDERING SYSTEM PROVIDED HISTORY: Reason for Exam: right flank pain with some left flank as well x 2 days. hx of UTI and kidney infection recently abdominal pain FINDINGS: Lower Chest: The lung bases are clear. Small right Bochdalek hernia. Organs: Hepatic steatosis. The spleen, adrenal glands, pancreas and left kidney are within normal limits. 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 There is a nonobstructive right inferior pole stone measuring 6 mm. Right external renal pelvis is noted. No hydronephrosis. No ureteral stone. GI/Bowel: There is an ostomy in the left mid abdomen with peristomal hernia sac measuring up to 12.2 cm. There is a loop of colon and small bowel that protrudes into the hernia sac without obstruction or inflammation. Rectal stump is noted. Colonic diverticulosis without diverticulitis. A 1.3 cm lipoma is noted within distal transverse colon. No free air. Pelvis: Collapsed urinary bladder with suprapubic catheter in place. Intraluminal air likely secondary to instrumentation. Lobulated soft tissue density adjacent to the left uterine wall likely representing a fibroid measuring approximately 4.4 cm, stable since 11/22/2022. No free fluid in the pelvis. Peritoneum/Retroperitoneum: The aorta is nonaneurysmal. No lymphadenopathy identified within the constraints of a noncontrast exam. Bones/Soft Tissues: Anterior abdominal wall mesh is noted. Fat containing umbilical hernia. Lumbosacral spina bifida noted at L3-S1. There is a transitional lumbosacral vertebral body. Compression fracture versus butterfly vertebra of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 hours. (Patient takingdifferently: Take 30 mL by mouth every 6 hours. Takes every six hours as needed) insulin glargine (LANTUS SOLOSTAR U-100 INSULIN) 100 unit/mL (3 mL) Inject 33 Units subcutaneously daily at bedtime. E11.65 insulin aspart, niacinamide, (FIASP FLEXTOUCH U-100 INSULIN) 100 unit/mL (3 mL) pen Inject 18 Unitssubcutaneously three times daily before meals. (Includes SS # 2 QAC -> Per Dr. Ermias Salomon) MAX TDD = 55 UNITS / DAY. E11.65 lisinopril (ZESTRIL, PRINIVIL) 5 mg tablet Take 1 tablet by mouth once daily. Per Dr. Ermias Salomon sodium chloride irrig solution (NACL 0.9% IRRIGATION BOTTLE) To use for catheter irrigation daily or as needed. Insulin [place], Disposable, (COMFORT EZ PEN NEEDLES) 29 gauge x 1/2 One needle with each lantus shot once a day. Dx: E13.29 on insulin PSEUDOEPHEDRINE HCL ORAL Take 30 mg by mouth as needed. ondansetron orally disintegrating (ZOFRAN ODT) 8 mg disintegrating tablet 8 mg as needed. fluticasone (FLONASE) 50 mcg/actuation nasal spray Use 2 Sprays in each nostril once daily. Rinse mouth after use. Insulin [place], Disposable, 32 gauge x 5/16 ndle Use once daily with Victoza COMPOUNDED PRESCRIPTION Stoma catheter tube. DX: Qo5.4 and K59.2 Patient Entered Questionnaires Spine Questions 06/19/2023 07/14/2023 Pain Location: Upper back/torso Upper back/torso Pain Duration: 3-6 months - Pain over last 6 months: Every day or nearly every day in the past 6 months - Symptoms from neck/cervical spine: Yes Yes Employment Status: Disabled due to back pain, permanently or temporarily - Off work 1 month or more due to back/neck pain: Does not apply - Applied for/receive disability/WC due to low back/neck pain Does not apply - Involved in law suit/legal claim: No - Neck Questionnaires 06/19/2023 Benzel Modified ÁLVARO Score 11 (A lower score indicates increased pain and issues.) PROMIS Score Percentiles Physical Health 04/08/2023 06/19/2023 07/14/2023 Physical Function Percentile 7 4 4 Sleep Percentile - 2 1 Fatigue Percentile - 1 5 Pain Interference Percentile 2 1 1 PROMIS SOCIAL ROLE SCORE 06/19/2023 07/14/2023 Social Role Satisfaction Percentile 1 1 PROMIS Global Health Scale 01/15/2023 04/08/2023 06/19/2023 Physical Health Percentile 4 4 0 Mental Health Percentile 13 13 3 Percentiles provide an indication of how the patient's score ranks in relation to the general population. Higher percentile rankings indicate better function/quality of life. 50th percentile is the average of the general population and indicates half of respondents had a worse score. Depression Screening: PHQ-9 06/19/2023 06/21/2023 07/14/2023 Score 10 11 10 PHQ-9 Self-harm Question 06/19/2023 06/21/2023 07/14/2023 Thoughts that you would be better off , or of hurting yourself in some way 0 0 0 PHQ-9 Self-Harm (Item 9) response options: 0 Not at all 1 Several days 2 More than half the days 3 Nearly every day PHQ-9 Levels: 0-4 No to mild depression 5-9 Mild depression 10-14 Moderate depression 15-19 Moderately severe depression 20-27 Severe depression OBJECTIVE: PHYSICAL EXAM: BP 101/63 Pulse 72 Ht 5' 2 (1.58m) Wt 218 lb (98.9kg) SpO2 98% LMP 03/27/2023 BMI 39.86 kg/(m^2). GENERAL APPEARANCE: Well nourished, well developed, and no apparent distress. NEURO PSYCH: Patient oriented to person, place, and time. Mood pleasant. Benign affect. MUSCULOSKELETAL VISUAL INSPECTION CERVICAL: WNL THORACIC: WNL LUMBAR: WNL MOTOR: 5/5 in all muscle groups. SENSORY: Normal sensory exam GAIT: Normal. 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 She feels that she has been getting worse over time. Patient can walk but exhibits very little movement upon command Her physical exam is very effort dependent. no long tract findings and negative hoffmans We reviewed relevant imaging with her today in-office. Per my read there are no pathologic findings. I have ordered MRI of lumbar, thoracic, and cervical spine. The first two for assessment of lipomengocele and the cervical for assessment of complaint of hand numbness and intermittent weakness. I do not believe that surgical intervention will be necessary. She is awaiting ketamine infusion. I would like her to be seen by Dr. Sweeney, since I no long operate and he has more expertise in this arena. I have placed an order for this. Follow up: PRN The majority of the visit was spent counseling and/or coordinating care for the patient. Total faceto face time plus preparation was 45 minutes. By signing my name below, I, Denise Jaren, attest that this documentation has been prepared under the direction and in the presence of Dr. Nicholson. Electronically signed, Denise Eastman 07/18/23 I agree with the Chief Complaint, ROS, and Past Histories independently gathered by the clinical client support manager and the remaining scribed note accurately describes my personal service to the patient. Clay Nicholson CC: [facility] Discharge instructions Patient Education 07/15/2023 14:52:22 Pyelonephritis, Female (Adult) Kidney Infection (Adult Female) An infection in one or both kidneys is called pyelonephritis. It usually happens when bacteria (or rarely, viruses, fungi, or other disease-causing organisms) get into the kidney. The bacteria (or other disease-causing organisms) can enter the kidneys from the bladder or blood traveling from other parts of the body. A kidney infection can become serious. It can cause severe illness, scarring ofthe kidneys, or kidney failure if not treated properly. Common causes for this problem include: Not keeping the genital area clean and dry, which promotes the growth of bacteria Wiping back to front which drags bacteria from the rectum toward the urinary opening (urethra) Wearing tight pants or underwear (this lets moisture build up in the genital area, which helps bacteria grow) Holding urine in for long periods of time Dehydration Kidney infections can cause symptoms similar to a bladder infection. Symptoms include: Pain (or burning) when urinating Having to urinate more often than usual Blood in the urine (pink or red) Abdominal pain or discomfort, usually in the lower abdomen Pain in the side or back Pain above the pubic bone Fever or chills Vomiting Loss of appetite Treatment is oral antibiotics, or in more severe cases, intramuscular or IV antibiotics. These are started right away and may be changed once urine culture results determine the infecting organisms. Treatment helps prevent a more serious kidney infection. Medicines Medicines can help in the treatment of a bladder infection: Take antibiotics until they are used up, even if you feel better. It is important to finish them tomake sure the infection is gone. Unless another medicine was prescribed, you can use cgsy-oeh-[id number] medicines for pain, fever, or discomfort. If you have chronic liver of kidney disease, talk with your healthcare provider before using these medicines. Also talk with your provider if you've ever had a stomach ulcer or gastrointestinal (GI) bleeding, or are taking blood thinners. Home care The following are general care guidelines: Stay home from work or school. Rest in bed until your fever breaks and you are feeling better, or as advised by your healthcare provider. Drink lots of fluid unless you must restrict fluids for other medical reasons. This will force the medicine into your urinary system and flush the bacteria out of your body. Ask your healthcare provider how much you should drink. Don't have sex until you have finished all of your medicine and your symptoms are gone. Don't have caffeine, alcohol, or spicy foods. These foods may irritate the kidneys and bladder. Don't take bubble baths. Sensitivity to the chemicals in bubble baths can irritate the urethra. Make sure you wipe from front to back after using the toilet. Wear loose cloths and cotton underwear. Prevention These self-care steps can help prevent future infections: Drink plenty of fluids to prevent dehydration and flush out the bladder. Do this unless you must restrict fluids for other health reasons, or your healthcare provider told you not to. Proper cleaning after going to the bathroom in important. Make sure you wipe from front to back after using the toilet. Urinate more often. Don't try to hold urine in for a long time. Don't wear tight-fitting pants and underwear. Improve your diet to prevent constipation. Eat more fruits, vegetables, and fiber. Eat less junk and fatty foods. Constipation can make a urinary tract infection more likely. Talk with your healthcare provider if you have trouble with bowel movements. Urinate right after intercourse to flush out the bladder. Follow-up care Follow up with your healthcare provider, or as advised. Additional testing may be needed to make sure the infection has cleared. Close follow-up and further testing is very important to find the cause and to prevent future infections. If a urine culture was done, you will be contacted if your treatment needs to be changed. If directed, you may call to find out the results. If you had an X-ray, CT scan, or other diagnostic test, you will be notified of any new findings that may affect your care. Call 911 Call 911 if any of the following occur: Trouble breathing Fainting or loss of consciousness Rapid or very slow heart rate Weakness, dizziness, or fainting Difficulty arousing or confusion When to seek medical advice Call your healthcare provider right away if any of these occur: Fever 100.4 F (38 C) or higher, or as directed by your healthcare provider Not feeling better within 1 to 2 days after starting antibiotics Any symptom that continues after 3 days of treatment Increasing pain in the stomach, back, side, or groin area Repeated vomiting Not able to take prescribed medicine due to nausea or another reason Bloody, dark-colored, or foul smelling urine Trouble urinating or decreased urine output No urine for 8 hours, no tears when crying, sunken eyes, or dry mouth [id number] [employer]. [address] [place] [address]. All rights reserved. This information is not intended as a substitute for professional medical care. Always follow yourhealthcare professional's instructions. Follow Up Care 07/15/2023 12:54:50 With:WILL BRANNON MD Address: [address] [facility] [place] [address]- When:2-[address] [facility] 02-17-2024 Note Discharge Instructions Thank you for allowing [facility] to assist you with your healthcare needs. The following is importantdischarge information regarding your hospital visit. Diagnosis from Today's Visit Flank pain Pyelonephritis What to Do Next Instructions from Your Care Team No qualifying data available. Post Acute Orders No qualifying data available. You Need to Schedule the Following Appointments Follow Up with WILL BRANNON MD When Within 2-4 days [facility] [address] [facility] [place] [id number]- Allergies Mushrooms (Throat swelling) Peanuts (Throat swelling) Rocephin (Hives) cephalosporins (Anaphylaxis, Hives) gabapentin (psychotic breakdown) Contrast dye (Vomiting) Latex (Hives) penicillin (Unknown) Medications Please ask your primary doctor or pharmacist before taking any other medication not listed, including over the counter drugs, herbal medications, vitamins and or supplements as they may interact withyour home medications. What How Much When Why Instructions Last Dose New acetaminophen-oxyCODONE (Percocet 5 mg-325 mg oral tablet) 1 tab(s) by mouth Every 6 hours as needed for for pain Pyelonephritis Duration: 2 Days Pickup at [facility] New sulfamethoxazole-trimethoprim (Bactrim DS 800 mg-160 mg oral tablet) 1 tab(s) by mouth Two (2) times a day Duration: 10 Days Pickup at [facility] Unchanged atorvastatin (atorvastatin 80 mg oral tablet) 1 tab(s) by mouth Every day Unchanged aztreonam (Azactam 1 g injection) 1 gram(s) Intramuscular Every 8 hours Unchanged DME (DME MISCellaneous) See instructions Sterile water, 40 syringes, 40 needles, alchohol swabs. Unchanged DULoxetine (Cymbalta 30 mg oral delayed release capsule) 1 cap by mouth Once a day Unchanged furosemide (Lasix 20 mg oral tablet) 2 tab(s) by mouth Once a day (in the morning) Unchanged furosemide (Lasix 20 mg oral tablet) 1 tab(s) by mouth Once a day (in the evening) Unchanged insulin aspart (Novolog) (Fiasp FlexTouch 100 units/ mL injectable solution) See instructions Sliding scale TIDAC Unchanged insulin glargine (Lantus 100 units/ mL10 ml vial solution) 33 unit(s) Subcutaneous Daily at bedtime Unchanged insulin glargine (Lantus) 33 unit(s) Subcutaneous Daily at bedtime Unchanged lisinopril (lisinopril 2.5 mg oral tablet) 1 tab(s) by mouth Once a day Unchanged oxybutynin (oxybutynin 15 mg/ 24 hr oral tablet, extended release) 1 tab(s) by mouth Once a day (in the evening) Unchanged pregabalin (pregabalin 75 mg oral capsule) 1 cap by mouth Two (2) times a day Unchanged propranolol (propranolol 20 mg oral tablet) 0.5 tab(s) by mouth Two (2) times a day Unchanged topiramate (topiramate 25 mg oral tablet) 1 tab(s) by mouth Daily at bedtime Unchanged traZODone (traZODone 100 mg oral tablet) 1 tab(s) by mouth Daily at bedtime Pharmacy Information [facility]: [address] [place], [place] [phone] Please take this list to your next doctor s visit. Bring all medications you take, including over the counter medications, herbals and other supplements with you to your doctor s visit. Patients and families are reminded to discard old lists and to update any records with all medication providers or retail pharmacies. Education Materials Kidney Infection (Adult Female) An infection in one or both kidneys is called pyelonephritis. It usually happens when bacteria (or rarely, viruses, fungi, or other disease-causing organisms) get into the kidney. The bacteria (or other disease-causing organisms) can enter the kidneys from the bladder or blood traveling from other parts of the body. A kidney infection can become serious. It can cause severe illness, scarring ofthe kidneys, or kidney failure if not treated properly. Common causes for this problem include: Not keeping the genital area clean and dry, which promotes the growth of bacteria Wiping back to front which drags bacteria from the rectum toward the urinary opening (urethra) Wearing tight pants or underwear (this lets moisture build up in the genital area, which helps bacteria grow) Holding urine in for long periods of time Dehydration Kidney infections can cause symptoms similar to a bladder infection. Symptoms include: Pain (or burning) when urinating Having to urinate more often than usual Blood in the urine (pink or red) Abdominal pain or discomfort, usually in the lower abdomen Pain in the side or back Pain above the pubic bone Fever or chills Vomiting Loss of appetite Treatment is oral antibiotics, or in more severe cases, intramuscular or IV antibiotics. These are started right away and may be changed once urine culture results determine the infecting organisms. Treatment helps prevent a more serious kidney infection. Medicines Medicines can help in the treatment of a bladder infection: Take antibiotics until they are used up, even if you feel better. It is important to finish them tomake sure the infection is gone. Unless another medicine was prescribed, you can use [id number] medicines for pain, fever, or discomfort. If you have chronic liver of kidney disease, talk with your healthcare provider before using these medicines. Also talk with your provider if you've ever had a stomach ulcer or gastrointestinal (GI) bleeding, or are taking blood thinners. Home care The following are general care guidelines: Stay home from work or school. Rest in bed until your fever breaks and you are feeling better, or as advised by your healthcare provider. Drink lots of fluid unless you must restrict fluids for other medical reasons. This will force the medicine into your urinary system and flush the bacteria out of your body. Ask your healthcare provider how much you should drink. Don't have sex until you have finished all of your medicine and your symptoms are gone. Don't have caffeine, alcohol, or spicy foods. These foods may irritate the kidneys and bladder. Don't take bubble baths. Sensitivity to the chemicals in bubble baths can irritate the urethra. Make sure you wipe from front to back after using the toilet. Wear loose cloths and cotton underwear. Prevention These self-care steps can help prevent future infections: Drink plenty of fluids to prevent dehydration and flush out the bladder. Do this unless you must restrict fluids for other health reasons, or your healthcare provider told you not to. Proper cleaning after going to the bathroom in important. Make sure you wipe from front to back after using the toilet. Urinate more often. Don't try to hold urine in for a long time. Don't wear tight-fitting pants and underwear. Improve your diet to prevent constipation. Eat more fruits, vegetables, and fiber. Eat less junk and fatty foods. Constipation can make a urinary tract infection more likely. Talk with your healthcare provider if you have trouble with bowel movements. Urinate right after intercourse to flush out the bladder. Follow-up care Follow up with your healthcare provider, or as advised. Additional testing may be needed to make sure the infection has cleared. Close follow-up and further testing is very important to find the cause and to prevent future infections. If a urine culture was done, you will be contacted if your treatment needs to be changed. If directed, you may call to find out the results. If you had an X-ray, CT scan, or other diagnostic test, you will be notified of any new findings that may affect your care. Call 911 Call 911 if any of the following occur: Trouble breathing Fainting or loss of consciousness Rapid or very slow heart rate Weakness, dizziness, or fainting Difficulty arousing or confusion When to seek medical advice Call your healthcare provider right away if any of these occur: Fever 100.4 F (38 C) or higher, or as directed by your healthcare provider Not feeling better within 1 to 2 days after starting antibiotics Any symptom that continues after 3 days of treatment Increasing pain in the stomach, back, side, or groin area Repeated vomiting Not able to take prescribed medicine due to nausea or another reason Bloody, dark-colored, or foul smelling urine Trouble urinating or decreased urine output No urine for 8 hours, no tears when crying, sunken eyes, or dry mouth [id number] [employer]. [address] [place] [address], [place] [address]. All rights reserved. This information is not intended as a substitute for professional medical care. Always follow yourhealthcare professional's instructions. Additional Information VACCINATE! IT SAVES LIVES! Members of the community who have not yet received the COVID-19 vaccine and would like to receive it can visit one of [facility] vaccine clinics. There are many vaccine clinic locations within the [facility]. For locations and available times, please visit www.[email or web address].[email or web address]/. It is important to note that some COVID mobile vaccine clinics are held outdoors and may be canceled in rainy or stormy conditions. To learn more about pediatric vaccinations (ages 5-11), we invite you to visit the [facility] webpage. [email or web address]/[email or web address] learn more about the COVID-19 vaccine, we invite you to visit the CDC website for a list of frequently asked questions. https://www.cdc.gov/coronavirus/2019-ncov/vaccines/faq.html [employer] Patient Portal Access Instructions: Stay connected with your healthcare team and access your personal medical information anytime with the [email or web address] Patient Portal. If you would like a full copy of your medical records please contact the [facility] Medical Records Department Monday through Monday between 8a.m. and 4:30p.m. Please follow the directions below to access the portal: 1.Access the email account you provided upon registration to the hospital.2.Look for an invitation email from [facility].3.Open the email and access the invitation link: Accept Invitation to [facility].Fill in the required hartley to create your account. Sign into www.[employer] with your username and password that you created in the above steps to stay up to date. You can then view a summary of results, a summary of your visits, and the ability to download your summaries to your computer or send the information securely to a physician. Remember that your healthcare information is confidential, so carefully consider who you will allow to register on the [email or web address] Patient Portal for access to your information. You can also access the [email or web address] Patient Portal on the [employer] robert. Simply click on Health Records under [employer] and then click on the [employer] logo. HOW TO SAFELY DISPOSE OF PRESCRIPTION MEDICATIONS Please use one of the following methods to safely dispose of your unused medications. 1.Use a drug disposal kit: the drug disposal pouch allows you to safely discard your old and unuseddrugs. Ask your nurse to give you one when you are discharged.2.Visit a local take-back location: Many local pharmacies and police departments have programs that collect old and unwanted prescriptiondrugs. Call your local pharmacy or go to http://[employer]/1S1Oc9j to find one close to you.3.Make use of household items: Use cat litter or old coffee grounds to dispose medications if other options arenot available. Mix your drugs with these household products, seal them in an airtight container andthrow it into the garbage. Call [facility]: [phone] to be sure your drugs can be disposed of in this way. Some medicines may require a different approach.4.Never flush your medications down the toilet. IF YOU HAVE BEEN PRESCRIBED AN OPIOIDS FOR PAIN If you have been prescribed an opioid (such as hydrocodone, oxycodone or morphine), it is critical to understand the possible side effects and risks of opioid pain medications. Even when taken as directed, opioids can have several side effects including: Tolerance, meaning you might need to take more of a medication for the same pain relief. Nausea, vomiting and/or constipation. Sleepiness, dizziness, dry mouth, confusion, depression or itching. Physical dependence, meaning you have withdrawal symptoms when a medication is stopped ? this can develop within a few days. KNOW YOUR RESPONSIBILITIES It is important to know exactly how much and how often to take the opioid pain medications you are prescribed. Never take opioids in higher amounts or more often than prescribed. Do not combine opioids with alcohol or other drugs that cause drowsiness, such as benzodiazepines, also known as benzos,including diazepam and alprazolam, muscle relaxants or sleep aids. Never sell or share prescriptionopioids. This is illegal. Store opioids in a secure place and out of reach of others (including children, family, friends and visitors). The last page(s) of this document has been signed and retained as a CHART COPY Signatures Patient Education Materials Pyelonephritis, Female (Adult) Medication Leaflets My discharge plan and instructions have been reviewed and explained to me and IUVALDO ANGELA Lunderstand my current condition and have read and understand these discharge instructions. I have received a written copy of the plan/instructions. If I have questions, I am aware that I should contact my doctor. 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02-17[facility]2024 Evaluation + Plan note Diagnostic Tests Pending * Urine Culture 07/15/[address] [facility] 02-06-2024 History of Present illness Narrative* Naty Haddad LPN - 07/04/2023 3:35 PM EST CC Supra pubic catheter in Place HPI: Debby Bailon is a 42 year old female. The patient is here now for a supra pubic catheter change with diagnosis neurogenic bladder. Procedure: Performed a catheter change. The indwelling supra pubic cook size 18 Fr was removed with catheter tip intact without difficulty. Inserted 18 Fr catheter using aseptic technique. Approximately 10 mL light yellow urine noted. Irrigated with 60 mL Sterile Water. Approximately 60 mLs light pale yellowurine with some sediment throughoutnoted. Bulb inflated with 10 mLs prefilled syringe- sterile water. T-Sponge applied to SPT base per patient preference attached to drainage bag. The patient tolerated the procedure well. Patient does not like tubing secured. Assessment/Plan: Successful catheter change. Return for catheter changes as planned. [facility]add[facility] Discharge instructions Patient Education 06/07/2023 20:47:01 Bladder Infection, Female (Adult) Bladder Infection, Female (Adult) Urine is normally doesn't have any bacteria in it. But bacteria can get into the urinary tract fromthe skin around the rectum. Or they can travel in the blood from elsewhere in the body. Once they are in your urinary tract, they can cause infection in the urethra (urethritis), the bladder (cystitis), or the kidneys (pyelonephritis). The most common place for an infection is in the bladder. This is called a bladder infection. This is one of the most common infections in women. Most bladder infections are easily treated. They are not serious unless the infection spreads to the kidney. The phrases bladder infection, UTI, and cystitis are often used to describe the same thing. But they are not always the same. Cystitis is an inflammation of the bladder. The most common cause of cystitis is an infection. Symptoms The infection causes inflammation in the urethra and bladder. This causes many of the symptoms. Themost common symptoms of a bladder infection are: Pain or burning when urinating Having to urinate more often than usual Urgent need to urinate Only a small amount of urine comes out Blood in urine Abdominal discomfort. This is usually in the lower abdomen above the pubic bone. Cloudy urine Strong- or bad-smelling urine Unable to urinate (urinary retention) Unable to hold urine in (urinary incontinence) Fever Loss of appetite Confusion (in older adults) Causes Bladder infections are not contagious. You can't get one from someone else, from a toilet seat, or from sharing a bath. The most common cause of bladder infections is bacteria from the bowels. The bacteria get onto the skin around the opening of the urethra. From there, they can get into the urine and travel up to thebladder, causing inflammation and infection. This usually happens because of: Wiping improperly after urinating. Always wipe from front to back. Bowel incontinence Procedures such as having a catheter inserted Older age Not emptying your bladder. This can allow bacteria a chance to grow in your urine. Dehydration Constipation Sex Use of a diaphragm for control Treatment Bladder infections are diagnosed by a urine test. They are treated with antibiotics and usually clear up quickly without complications. Treatment helps prevent a more serious kidney infection. Medicines Medicines can help in the treatment of a bladder infection: Take antibiotics until they are used up, even if you feel better. It is important to finish them tomake sure the infection has cleared. You can use acetaminophen or ibuprofen for pain, fever, or discomfort, unless another medicine was prescribed. If you have chronic liver or kidney disease, talk with your healthcare provider before using these medicines. Also talk with your provider if you've ever had a stomach ulcer or gastrointestinal bleeding, or are taking blood-thinner medicines. If you are given phenazopydridine to reduce burning with urination, it will cause your urine to become a bright orange color. This can stain clothing. Care and prevention These self-care steps can help prevent future infections: Drink plenty of fluids to prevent dehydration and flush out your bladder. Do this unless you must restrict fluids for other health reasons, or your doctor told you not to. Proper cleaning after going to the bathroom is important. Wipe from front to back after using the toilet to prevent the spread of bacteria. Urinate more often. Don't try to hold urine in for a long time. Wear loose-fitting clothes and cotton underwear. Avoid tight-fitting pants. Improve your diet and prevent constipation. Eat more fresh fruit and vegetables, and fiber, and less junk and fatty foods. Avoid sex until your symptoms are gone. Avoid caffeine, alcohol, and spicy foods. These can irritate your bladder. Urinate right after intercourse to flush out your bladder. If you use control pills and have frequent bladder infections, discuss it with your doctor. Follow-up care Call your healthcare provider if all symptoms are not gone after 3 days of treatment. This is especially important if you have repeat infections. If a culture was done, you will be told if your treatment needs to be changed. If directed, you cancall to find out the results. If X-rays were done, you will be told if the results will affect your treatment. Call 911 Call 911 if any of the following occur: Trouble breathing Hard to wake up or confusion Fainting or loss of consciousness Rapid heart rate When to seek medical advice Call your healthcare provider right away if any of these occur: Fever of 100.4 F (38.0 C) or higher, or as directed by your healthcare provider Symptoms are not better by the third day of treatment Back or belly (abdominal) pain that gets worse Repeated vomiting, or unable to keep medicine down Weakness or dizziness Vaginal discharge Pain, redness, or swelling in the outer vaginal area (labia) 2560-11[address] [employer]. [address] [place] [address], [place] [address]. All rights reserved. This information is not intended as a substitute for professional medical care. Always follow yourhealthcare professional's instructions. 06/07/2023 20:46:57 R.Allen RICE RICE stands for rest, ice, compression, and elevation. Doing these things helps limit pain and swelling after an injury. RICE also helps injuries heal faster. Use RICE for sprains, strains, and severe bruises or bumps. Follow the tips on this handout and begin RICE as soon as possible after an injury. Rest Pain is your body s way of telling you to rest an injured area. Whether you have hurt an elbow, hand, foot, or knee, limiting its use will prevent further injury and help you heal. Ice Applying ice right after an injury helps prevent swelling and reduce pain. Don t place ice directlyon your skin. Wrap a cold pack or bag of ice in a thin cloth. Place it over the injured area. Ice for 10 minutes every 3 hours. Don t ice for more than 20 minutes at a time. Compression Putting pressure (compression) on an injury helps prevent swelling and provides support. Wrap the injured area firmly with an elastic bandage. If your hand or foot tingles, becomes discolored, or feels cold to the touch, the bandage may be too tight. Rewrap it more loosely. If your bandage becomes too loose, rewrap it. Do not wear an elastic bandage overnight. Elevation Keeping an injury elevated helps reduce swelling, pain, and throbbing. Elevation is most effective when the injury is kept elevated higher than the heart. Call your healthcare provider if you notice any of the following: Fingers or toes feel numb, are cold to the touch, or change color. Skin looks shiny or tight. Pain, swelling, or bruising worsens and is not improved with elevation. [id number] [employer] [place] [address]. All rights reserved. This information is not intended as a substitute for professional medical care. Always follow yourhealthcare professional's instructions. 06/07/2023 20:46:54 Fall, Uncertain Cause Fall with Uncertain Cause You have had a fall today. But the cause of your fall is not certain. Falls can happen due to slipping, tripping or losing your balance. A fall can also happen from a fainting spell or seizure. While a fall can happen for a simple reason (tripping over something), falls in elderly people are often caused by a combination of things: Age-related decline in function with worsening balance, stability, vision, and muscle strength Chronic illness, such as heart arrhythmias, heart valve disease, vascular disease, COPD, diabetes, strokes, or arthritis Shoes that do not give much support and make you prone to slip or slide Anemia or low blood pressure Effects or side effects of medicines Dehydration or recent use of alcohol Environmental hazards, such as uneven or slippery ground, unfamiliar place, obstacles, uneven surfaces, or slippery ground Situational factors (related to the activity being done, such as rushing to the bathroom) Because the cause of your fall today is not certain, it is possible that a fainting spell or seizure was the cause. This means that it could happen again, without warning. If you fall again, without a cause, then you should return to this facility promptly to have further tests. Otherwise, follow up with your healthcare provider as explained below. It is normal to feel sore and tight in your muscles and back the next day, and not just the musclesyou initially injured. Remember, all the parts of your body are connected, so while initially one area hurts, the next day another may hurt. Also, when you injure yourself, it causes inflammation, which then causes the muscles to tighten up and hurt more. After the initial worsening, it should gradually improve over the next few days. However, more severe pain should be reported. Even without a definite head injury, you can still get a concussion. Concussions and even bleeding can still happen, especially if you have had a recent injury or take blood thinner medicine. It is not unusual to have a mild headache and feel tired and even nauseous or dizzy. Home care Rest today and resume your normal activities as soon as you are feeling back to normal. It is best to remain with someone who can check on you for the next 24 hours to watch for another episode of falling. If you were injured during the fall, follow the advice from your healthcare provider regarding careof your injury. If you become lightheaded or dizzy, lie down right away or sit and lean forward with your head down. As a precaution, don't drive a car or operate dangerous equipment, don't take a bath alone (use a shower instead), and don't swim alone until you see your healthcare provider. A condition causing fainting or seizures must be ruled out before resuming these activities. You may use acetaminophen or ibuprofen to control pain, unless another pain medicine was prescribed. If you have chronic liver or kidney disease or ever had a stomach ulcer or gastrointestinal bleeding, talk with your healthcare provider before using these medicines. Keep your appointments for any further testing that may have been scheduled for you. Follow-up care Follow up with your healthcare provider, or as advised. If X-rays or CT scan were done, you will benotified if there is a change in the reading, especially if it affects treatment. Call 911 Call 911 if any of these happen: Trouble breathing Confused or difficulty arousing Fainting or loss of consciousness Rapid or very slow heart rate Seizure Difficulty with speech or vision, weakness of an arm or leg Difficulty walking or talking, loss of balance, numbness or weakness in one side of your body, facial droop When to seek medical advice Call your healthcare provider right away if any of these happen: Another unexplained fall Dizziness Severe headache Nausea and vomiting Blood in vomit, stools (black or red color) [phone] [employer]. [address] [place] [address]. All rights reserved. This information is not intended as a substitute for professional medical care. Always follow yourhealthcare professional's instructions. Follow Up Care 06/07/2023 18:13:01 With:DO CELINE MCNAMARA DO Address: [address] [place] [address] [address] [place] [address] When:5 to 7 days With:Go to emergency room if symptoms worsen Address:Unknown When:2-4 days With:WILL BRANNON MD Address: [address] [place] [id number]- When:2-[address] [facility] 01-10-2024 Note Discharge Instructions Thank you for allowing [facility] to assist you with your healthcare needs. The following is importantdischarge information regarding your hospital visit. Diagnosis from Today's Visit Arm pain-swelling Fall Head pain Left arm pain UTI - Urinary tract infection What to Do Next Instructions from Your Care Team Take Bactrim as prescribed for UTI. Take Tylenol and or Motrin as needed for pain. Imaging here negative for any fracture or dislocation. Follow-up with your primary care provider if continued pain consider repeat imaging in 7 to 10 days. Follow-up with Dr. Mcnamara of orthopedic surgery if continuedpain. Return emergency department if experience worsening symptoms or any other care concern. No qualifying data available. Post Acute Orders No qualifying data available. You Need to Schedule the Following Appointments Follow Up with DO CELINE MCNAMARA DO When Within 5 to 7 days Where: [address] [facility] [address] [place] [address] Follow Up with Go to emergency room if symptoms worsen When Within 2-4 days Follow Up with WILL BRANNON MD When Within 2-4 days Where: [address] [place] [address]- Allergies Mushrooms (Throat swelling) Peanuts (Throat swelling) Rocephin (Hives) cephalosporins (Anaphylaxis, Hives) gabapentin (psychotic breakdown) Contrast dye (Vomiting) Latex (Hives) penicillin (Unknown) Medications Please ask your primary doctor or pharmacist before taking any other medication not listed, including over the counter drugs, herbal medications, vitamins and or supplements as they may interact withyour home medications. What How Much When Instructions Last Dose New sulfamethoxazole-trimethoprim (Bactrim DS 800 mg-160 mg oral tablet) 1 tab(s) by mouth Two (2) times a day Duration: 14 Days Printed Prescription Unchanged aztreonam (Azactam 1 g injection) 1 gram(s) Intramuscular Every 8 hours Unchanged DME (DME MISCellaneous) See instructions Sterile water, 40 syringes, 40 needles, alchohol swabs. Unchanged DULoxetine (Cymbalta 30 mg oral delayed release capsule) 1 cap by mouth Once a day Unchanged furosemide (Lasix 20 mg oral tablet) 2 tab(s) by mouth Once a day (in the morning) Unchanged furosemide (Lasix 20 mg oral tablet) 1 tab(s) by mouth Once a day (in the evening) Unchanged insulin aspart (Novolog) (Fiasp FlexTouch 100 units/ mL injectable solution) See instructions Sliding scale TIDAC Unchanged insulin glargine (Lantus 100 units/ mL10 ml vial solution) 33 unit(s) Subcutaneous Daily at bedtime Unchanged insulin glargine (Lantus) 33 unit(s) Subcutaneous Daily at bedtime Unchanged lisinopril (lisinopril 2.5 mg oral tablet) 1 tab(s) by mouth Once a day Unchanged oxybutynin (oxybutynin 15 mg/ 24 hr oral tablet, extended release) 1 tab(s) by mouth Once a day (in the evening) Unchanged propranolol (propranolol 20 mg oral tablet) 0.5 tab(s) by mouth Two (2) times a day Please take this list to your next doctor s visit. Bring all medications you take, including over the counter medications, herbals and other supplements with you to your doctor s visit. Patients and families are reminded to discard old lists and to update any records with all medication providers or retail pharmacies. Medication Leaflets sulfamethoxazole and trimethoprim (oral/injection) (SUL fa meth OX a zole and trye METH oh prim) Bactrim, Bactrim DS, Sulfatrim Pediatric What is the most important information I should know about sulfamethoxazole and trimethoprim? Use only as directed. Tell your doctor if you use other medicines or have other medical conditions or allergies. What is sulfamethoxazole and trimethoprim? Sulfamethoxazole and trimethoprim is a combination antibiotic used to treat ear infections, urinarytract infections, bronchitis, traveler's diarrhea, shigellosis, and Pneumocystis jiroveci pneumonia. Sulfamethoxazole and trimethoprim may also be used for purposes not listed in this medication guide. What should I discuss with my healthcare provider before using sulfamethoxazole and trimethoprim? You should not use this medicine if you are allergic to sulfamethoxazole or trimethoprim, or if youhave: severe liver disease; kidney disease that is not being treated or monitored; anemia (low red blood cells) caused by folic acid deficiency; a history of low blood platelets after taking trimethoprim or any sulfa drug; or if you take dofetilide. May cause defects. Do not use if you are . Tell your doctor if you become . Do not breastfeed. This medicine should not be given to a child younger than 2 months old. Tell your doctor if you have ever had: kidney or liver disease; a folate (folic acid) deficiency; asthma or severe allergies; HIV or AIDS; a thyroid disorder; malnourishment; alcoholism; an electrolyte imbalance (such as low blood sodium or high potassium); porphyria, or ierylrr-1-qwwdquxcn dehydrogenase (G6PD) deficiency; or if you use a blood thinner (such as warfarin) and you have routine 'INR' or prothrombin time tests. How should I use sulfamethoxazole and trimethoprim? Follow all directions on your prescription label and read all medication guides or instruction sheets. Use the medicine exactly as directed. Sulfamethoxazole and trimethoprim oral is taken by mouth. Shake the oral suspension (liquid). Measure a dose with the supplied measuring device (not a kitchen spoon). Sulfamethoxazole and trimethoprim injection is given in a vein. Be sure you understand how to properly mix this medicine with a liquid (diluent) and how to store the mixture. Ask your doctor or pharmacist if you don't understand how to use an injection. Prepare an injection only when you are ready to give it. Call your pharmacist if the medicine lookscloudy, has changed colors, or has particles in it. Mixed medicine must be used within 2 to 6 hours depending on the amount of diluent in the mixture. Follow your doctor's instructions. Do not refrigerate mixed medicine. Do not reuse a needle or syringe. Place them in a puncture-proof 'sharps' container and dispose of it following state or local laws. Keep out of the reach of children and pets. Drink plenty of fluids to prevent kidney stones. Antibiotic medicines can cause diarrhea. Tell your doctor if you have diarrhea that is watery or bloody. Keep using this medicine even if your symptoms quickly improve. Skipping doses could make your infection resistant to medication. Sulfamethoxazole and trimethoprim will not treat a viral infection (flu or a common cold). You may need blood and urine tests, and this medicine may be stopped based on the results. Store at room temperature away from moisture, heat, and light. Do not refrigerate. What happens if I miss a dose? Use the medicine as soon as you can, but skip the missed dose if it is almost time for your next dose. Do not use two doses at one time. What happens if I overdose? Seek emergency medical attention or call the Poison Help line at . Overdose symptoms may include loss of appetite, vomiting, fever, blood in your urine, yellowing of your skin or eyes, confusion, or loss of consciousness. What should I avoid while using sulfamethoxazole and trimethoprim? If you use the injection form of this medicine, do not eat or drink anything that contains propylene glycol (an ingredient in many processed foods, soft drinks, and medicines). Dangerous effects could occur. Sulfamethoxazole and trimethoprim could make you sunburn more easily. Avoid sunlight or tanning beds. Wear protective clothing and use sunscreen (SPF 30 or higher) when you are outdoors. What are the possible side effects of sulfamethoxazole and trimethoprim? Get emergency medical help if you have signs of an allergic reaction (hives, cough, chest pain, shortness of breath, swelling in your face or throat) or a severe skin reaction (fever, sore throat, burning eyes, skin pain, red or purple skin rash with blistering and peeling). Seek medical treatment if you have a serious drug reaction that can affect many parts of your body.Symptoms may include: skin rash, fever, swollen glands, joint pain, muscle aches, severe weakness, pale skin, unusual bruising, or yellowing of your skin or eyes. Call your doctor at once if you have: severe stomach pain, diarrhea that is watery or bloody (even if it occurs months after your last dose); any skin rash, no matter how mild; yellowing of your skin or eyes; a seizure; new or unusual joint pain; increased or decreased urination; swelling, bruising, or irritation around the IV needle; increased thirst, dry mouth, fruity breath odor; new or worsening cough, fever, trouble breathing; high blood potassium--nausea, weakness, tingly feeling, chest pain, irregular heartbeats, loss of movement; low blood sodium--headache, confusion, problems with thinking or memory, weakness, feeling unsteady; or low blood cell counts--fever, chills, mouth sores, skin sores, easy bruising, unusual bleeding, pale skin, cold hands and feet, feeling light-headed or short of breath. Common side effects may include: nausea, vomiting, loss of appetite; or skin rash. This is not a complete list of side effects and others may occur. Call your doctor for medical advice about side effects. You may report side effects to FDA at 6-213-PBN-3501. What other drugs will affect sulfamethoxazole and trimethoprim? You may need more frequent check-ups or medical tests if you also use medicine to treat depression,diabetes, seizures, or HIV. Tell your doctor about all your current medicines. Many drugs can affect sulfamethoxazole and trimethoprim, especially: amantadine, digoxin, cyclosporine, indomethacin, leucovorin, methotrexate, procainamide, pyrimethamine; an 'KOMAL inhibitor' heart or blood presure medication (benazepril, enalapril, lisinopril, quinapril,ramipril, and others); or a diuretic or 'water pill'. This list is not complete and many other drugs may affect sulfamethoxazole and trimethoprim. This includes prescription and ebra-tje-cbbmidz medicines, vitamins, and herbal products. Not all possibledrug interactions are listed here. Where can I get more information? Your pharmacist can provide more information about sulfamethoxazole and trimethoprim. Remember, keep this and all other medicines out of the reach of children, never share your medicines with others, and use this medication only for the indication prescribed. Every effort has been made to ensure that the information provided by [employer]. ('[employer]') is accurate, up-to-date, and complete, but no guarantee is made to that effect. Drug information contained herein may be time sensitive. [employer] information has been compiled for use by healthcare practitioners and consumers in the [place] and therefore [employer] does not warrant that uses outside of the [place] are appropriate, unless specifically indicated otherwise. [employer] drug information does not endorse drugs, diagnose patients or recommend therapy. [facility] drug information isan informational resource designed to assist licensed healthcare practitioners in caring for their p atients and/or to serve consumers viewing this service as a supplement to, and not a substitute for, the expertise, skill, knowledge and judgment of healthcare practitioners. The absence of a warningfor a given drug or drug combination in no way should be construed to indicate that the drug or drug combination is safe, effective or appropriate for any given patient. [employer] does not assume any responsibility for any aspect of healthcare administered with the aid of information [employer] provides. The information contained herein is not intended to cover all possible uses, directions, precautions, warnings, drug interactions, allergic reactions, or adverse effects. If you have questions about the drugs you are taking, check with your doctor, nurse or pharmacist. Copyright 1978-0289 [employer]. Version: 13.. Revision Date: 12/29/2022. Education Materials Bladder Infection, Female (Adult) Urine is normally doesn't have any bacteria in it. But bacteria can get into the urinary tract fromthe skin around the rectum. Or they can travel in the blood from elsewhere in the body. Once they are in your urinary tract, they can cause infection in the urethra (urethritis), the bladder (cystitis), or the kidneys (pyelonephritis). The most common place for an infection is in the bladder. This is called a bladder infection. This is one of the most common infections in women. Most bladder infections are easily treated. They are not serious unless the infection spreads to the kidney. The phrases bladder infection, UTI, and cystitis are often used to describe the same thing. But they are not always the same. Cystitis is an inflammation of the bladder. The most common cause of cystitis is an infection. Symptoms The infection causes inflammation in the urethra and bladder. This causes many of the symptoms. Themost common symptoms of a bladder infection are: Pain or burning when urinating Having to urinate more often than usual Urgent need to urinate Only a small amount of urine comes out Blood in urine Abdominal discomfort. This is usually in the lower abdomen above the pubic bone. Cloudy urine Strong- or bad-smelling urine Unable to urinate (urinary retention) Unable to hold urine in (urinary incontinence) Fever Loss of appetite Confusion (in older adults) Causes Bladder infections are not contagious. You can't get one from someone else, from a toilet seat, or from sharing a bath. The most common cause of bladder infections is bacteria from the bowels. The bacteria get onto the skin around the opening of the urethra. From there, they can get into the urine and travel up to thebladder, causing inflammation and infection. This usually happens because of: Wiping improperly after urinating. Always wipe from front to back. Bowel incontinence Procedures such as having a catheter inserted Older age Not emptying your bladder. This can allow bacteria a chance to grow in your urine. Dehydration Constipation Sex Use of a diaphragm for control Treatment Bladder infections are diagnosed by a urine test. They are treated with antibiotics and usually clear up quickly without complications. Treatment helps prevent a more serious kidney infection. Medicines Medicines can help in the treatment of a bladder infection: Take antibiotics until they are used up, even if you feel better. It is important to finish them tomake sure the infection has cleared. You can use acetaminophen or ibuprofen for pain, fever, or discomfort, unless another medicine was prescribed. If you have chronic liver or kidney disease, talk with your healthcare provider before using these medicines. Also talk with your provider if you've ever had a stomach ulcer or gastrointestinal bleeding, or are taking blood-thinner medicines. If you are given phenazopydridine to reduce burning with urination, it will cause your urine to become a bright orange color. This can stain clothing. Care and prevention These self-care steps can help prevent future infections: Drink plenty of fluids to prevent dehydration and flush out your bladder. Do this unless you must restrict fluids for other health reasons, or your doctor told you not to. Proper cleaning after going to the bathroom is important. Wipe from front to back after using the toilet to prevent the spread of bacteria. Urinate more often. Don't try to hold urine in for a long time. Wear loose-fitting clothes and cotton underwear. Avoid tight-fitting pants. Improve your diet and prevent constipation. Eat more fresh fruit and vegetables, and fiber, and less junk and fatty foods. Avoid sex until your symptoms are gone. Avoid caffeine, alcohol, and spicy foods. These can irritate your bladder. Urinate right after intercourse to flush out your bladder. If you use control pills and have frequent bladder infections, discuss it with your doctor. Follow-up care Call your healthcare provider if all symptoms are not gone after 3 days of treatment. This is especially important if you have repeat infections. If a culture was done, you will be told if your treatment needs to be changed. If directed, you cancall to find out the results. If X-rays were done, you will be told if the results will affect your treatment. Call 911 Call 911 if any of the following occur: Trouble breathing Hard to wake up or confusion Fainting or loss of consciousness Rapid heart rate When to seek medical advice Call your healthcare provider right away if any of these occur: Fever of 100.4 F (38.0 C) or higher, or as directed by your healthcare provider Symptoms are not better by the third day of treatment Back or belly (abdominal) pain that gets worse Repeated vomiting, or unable to keep medicine down Weakness or dizziness Vaginal discharge Pain, redness, or swelling in the outer vaginal area (labia) 0774-5120 [employer]. [address] [place] [address]. All rights reserved. This information is not intended as a substitute for professional medical care. Always follow yourhealthcare professional's instructions. RICE RICE stands for rest, ice, compression, and elevation. Doing these things helps limit pain and swelling after an injury. RICE also helps injuries heal faster. Use RICE for sprains, strains, and severe bruises or bumps. Follow the tips on this handout and begin RICE as soon as possible after an injury. Rest Pain is your body s way of telling you to rest an injured area. Whether you have hurt an elbow, hand, foot, or knee, limiting its use will prevent further injury and help you heal. Ice Applying ice right after an injury helps prevent swelling and reduce pain. Don t place ice directlyon your skin. Wrap a cold pack or bag of ice in a thin cloth. Place it over the injured area. Ice for 10 minutes every 3 hours. Don t ice for more than 20 minutes at a time. Compression Putting pressure (compression) on an injury helps prevent swelling and provides support. Wrap the injured area firmly with an elastic bandage. If your hand or foot tingles, becomes discolored, or feels cold to the touch, the bandage may be too tight. Rewrap it more loosely. If your bandage becomes too loose, rewrap it. Do not wear an elastic bandage overnight. Elevation Keeping an injury elevated helps reduce swelling, pain, and throbbing. Elevation is most effective when the injury is kept elevated higher than the heart. Call your healthcare provider if you notice any of the following: Fingers or toes feel numb, are cold to the touch, or change color. Skin looks shiny or tight. Pain, swelling, or bruising worsens and is not improved with elevation. [id number] [employer] [address] [place] [address]. All rights reserved. This information is not intended as a substitute for professional medical care. Always follow yourhealthcare professional's instructions. Fall with Uncertain Cause You have had a fall today. But the cause of your fall is not certain. Falls can happen due to slipping, tripping or losing your balance. A fall can also happen from a fainting spell or seizure. While a fall can happen for a simple reason (tripping over something), falls in elderly people are often caused by a combination of things: Age-related decline in function with worsening balance, stability, vision, and muscle strength Chronic illness, such as heart arrhythmias, heart valve disease, vascular disease, COPD, diabetes, strokes, or arthritis Shoes that do not give much support and make you prone to slip or slide Anemia or low blood pressure Effects or side effects of medicines Dehydration or recent use of alcohol Environmental hazards, such as uneven or slippery ground, unfamiliar place, obstacles, uneven surfaces, or slippery ground Situational factors (related to the activity being done, such as rushing to the bathroom) Because the cause of your fall today is not certain, it is possible that a fainting spell or seizure was the cause. This means that it could happen again, without warning. If you fall again, without a cause, then you should return to this facility promptly to have further tests. Otherwise, follow up with your healthcare provider as explained below. It is normal to feel sore and tight in your muscles and back the next day, and not just the musclesyou initially injured. Remember, all the parts of your body are connected, so while initially one area hurts, the next day another may hurt. Also, when you injure yourself, it causes inflammation, which then causes the muscles to tighten up and hurt more. After the initial worsening, it should gradually improve over the next few days. However, more severe pain should be reported. Even without a definite head injury, you can still get a concussion. Concussions and even bleeding can still happen, especially if you have had a recent injury or take blood thinner medicine. It is not unusual to have a mild headache and feel tired and even nauseous or dizzy. Home care Rest today and resume your normal activities as soon as you are feeling back to normal. It is best to remain with someone who can check on you for the next 24 hours to watch for another episode of falling. If you were injured during the fall, follow the advice from your healthcare provider regarding careof your injury. If you become lightheaded or dizzy, lie down right away or sit and lean forward with your head down. As a precaution, don't drive a car or operate dangerous equipment, don't take a bath alone (use a shower instead), and don't swim alone until you see your healthcare provider. A condition causing fainting or seizures must be ruled out before resuming these activities. You may use acetaminophen or ibuprofen to control pain, unless another pain medicine was prescribed. If you have chronic liver or kidney disease or ever had a stomach ulcer or gastrointestinal bleeding, talk with your healthcare provider before using these medicines. Keep your appointments for any further testing that may have been scheduled for you. Follow-up care Follow up with your healthcare provider, or as advised. If X-rays or CT scan were done, you will benotified if there is a change in the reading, especially if it affects treatment. Call 911 Call 911 if any of these happen: Trouble breathing Confused or difficulty arousing Fainting or loss of consciousness Rapid or very slow heart rate Seizure Difficulty with speech or vision, weakness of an arm or leg Difficulty walking or talking, loss of balance, numbness or weakness in one side of your body, facial droop When to seek medical advice Call your healthcare provider right away if any of these happen: Another unexplained fall Dizziness Severe headache Nausea and vomiting Blood in vomit, stools (black or red color) [id number] [employer]. [address] [place] [address]. All rights reserved. This information is not intended as a substitute for professional medical care. Always follow yourhealthcare professional's instructions. Additional Information VACCINATE! IT SAVES LIVES! Members of the community who have not yet received the COVID-19 vaccine and would like to receive it can visit one of [facility] vaccine clinics. There are many vaccine clinic locations within the [facility]. For locations and available times, please visit [email or web address] It is important to note that some COVID mobile vaccine clinics are held outdoors and may be canceled in rainy or stormy conditions. To learn more about pediatric vaccinations (ages 5-11), we invite you to visit the [facility] webpage. [email or web address] learn more about the COVID-19 vaccine, we invite you to visit the CDC website for a list of frequently asked questions. https://www.cdc.gov/coronavirus/2019-ncov/vaccines/faq.html [facility] Patient Portal Access Instructions: Stay connected with your healthcare team and access your personal medical information anytime with the [facility] Patient Portal. If you would like a full copy of your medical records please contact the [facility] Medical Records Department Monday through Monday between 8a.m. and 4:30p.m. Please follow the directions below to access the portal: 1.Access the email account you provided upon registration to the [facility].2.Look for an invitation email from [facility].3.Open the email and access the invitation link: Accept Invitation to [facility]4.Fill in the required hartley to create your account. Sign into [email or web address] with your username and password that you created in the above steps to stay up to date. You can then view a summary of results, a summary of your visits, and the ability to download your summaries to your computer or send the information securely to a physician. Remember that your healthcare information is confidential, so carefully consider who you will allow to register on the [facility] Patient Portal for access to your information. You can also access the [facility] Patient Portal on the [employer]. Simply click on Health Records under [employer] and then click on the [employer] logo. HOW TO SAFELY DISPOSE OF PRESCRIPTION MEDICATIONS Please use one of the following methods to safely dispose of your unused medications. 1.Use a drug disposal kit: the drug disposal pouch allows you to safely discard your old and unuseddrugs. Ask your nurse to give you one when you are discharged.2.Visit a local take-back location: Many local pharmacies and police departments have programs that collect old and unwanted prescriptiondrugs. Call your local pharmacy or go to http://bit.[employer]/4E5Vg2c to find one close to you.3.Make use of household items: Use cat litter or old coffee grounds to dispose medications if other options arenot available. Mix your drugs with these household products, seal them in an airtight container andthrow it into the garbage. Call [facility]: [phone] to be sure your drugs can be disposed of in this way. Some medicines may require a different approach.4.Never flush your medications down the toilet. IF YOU HAVE BEEN PRESCRIBED AN OPIOIDS FOR PAIN If you have been prescribed an opioid (such as hydrocodone, oxycodone or morphine), it is critical to understand the possible side effects and risks of opioid pain medications. Even when taken as directed, opioids can have several side effects including: Tolerance, meaning you might need to take more of a medication for the same pain relief. Nausea, vomiting and/or constipation. Sleepiness, dizziness, dry mouth, confusion, depression or itching. Physical dependence, meaning you have withdrawal symptoms when a medication is stopped ? this can develop within a few days. KNOW YOUR RESPONSIBILITIES It is important to know exactly how much and how often to take the opioid pain medications you are prescribed. Never take opioids in higher amounts or more often than prescribed. Do not combine opioids with alcohol or other drugs that cause drowsiness, such as benzodiazepines, also known as benzos,including diazepam and alprazolam, muscle relaxants or sleep aids. Never sell or share prescriptionopioids. This is illegal. Store opioids in a secure place and out of reach of others (including children, family, friends and visitors). The last page(s) of this document has been signed and retained as a CHART COPY Signatures Patient Education Materials Bladder Infection, Female (Adult) R.I.C.E. Fall, Uncertain Cause Medication Leaflets sulfamethoxazole and trimethoprim (oral/injection) My discharge plan and instructions have been reviewed and explained to me and IUVALDO ANGELA Lunderstand my current condition and have read and understand these discharge instructions. I have received a written copy of the plan/instructions. If I have questions, I am aware that I should contact my doctor. 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 06/07/2023 8:15 pm COMPARISON: None. HISTORY: ORDERING SYSTEM PROVIDED HISTORY: Reason for Exam: pain FINDINGS: There is no evidence of acute fracture. There is normal alignment. No acute joint abnormality. No focal osseous lesion. No focal soft tissue abnormality. IMPRESSION: No acute osseous abnormality. Interpreted by: Xavier Briones Preliminary Report By: Xavier Briones Electronically signed By Xavier Briones Dictated Date: 06/07/2023 8:23:09 PM Prelim Date: 06/07/2023 8:23:54 PM Sign Date: 06/07/2023 8:23:54 PM Ordering Provider: [facility]01-10-2024 Note ORIGINAL EXAMINATION: THREE XRAY VIEWS OF THE LEFT ELBOW 06/07/2023 8:13 pm COMPARISON: None. HISTORY: ORDERING SYSTEM PROVIDED HISTORY: Reason for Exam: pain FINDINGS: There is no elbow effusion. There is no acute fracture or dislocation. Alignment is normal. IMPRESSION: No acute abnormality. Interpreted by: Xavier Briones Preliminary Report By: Xavier Briones Electronically signed By Xavier Briones Dictated Date: 06/07/2023 8:22:19 PM Prelim Date: 06/07/2023 8:22:39 PM Sign Date: 06/07/2023 8:22:39 PM Ordering Provider: [facility]01-10-2024 NoteSinus rhythm Electronic Signature: JHONY VAZQUEZ DO 06/07/2023 20:19:19[facility] 01-10-2024 Note ORIGINAL EXAMINATION: TWO XRAY VIEWS OF THE LEFT SHOULDER 06/07/2023 8:14 pm COMPARISON: None. HISTORY: ORDERING SYSTEM PROVIDED HISTORY: Reason for Exam: pain FINDINGS: Glenohumeral joint is normally aligned. No evidence of acute fracture or dislocation. No abnormal periarticular calcifications. The AC joint is unremarkable in appearance. Visualized lung is unremarkable. IMPRESSION: No acute abnormality. Interpreted by: Xavier Briones Preliminary Report By: Xavier Briones Electronically signed By Xavier Briones Dictated Date: 06/07/2023 8:22:48 PM Prelim Date: 06/07/2023 8:23:01 PM Sign Date: 06/07/2023 8:23:01 PM Ordering Provider: [facility]01-10-2024 Note ORIGINAL EXAMINATION: CT OF THE CERVICAL SPINE WITHOUT CONTRAST 06/07/2023 7:36 pm TECHNIQUE: CT of the cervical spine was performed without the administration of intravenous contrast. Multiplanar reformatted images are provided for review. Automated exposure control, iterative reconstruction, and/or weight based adjustment of the mA/kV was utilized to reduce the radiation dose to as low as reasonably achievable. COMPARISON: None. HISTORY: ORDERING SYSTEM PROVIDED HISTORY: Reason for Exam: INJURY FINDINGS: BONES/ALIGNMENT: There is no acute fracture or traumatic malalignment. 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 DEGENERATIVE CHANGES: No significant degenerative changes. SOFT TISSUES: There is no prevertebral soft tissue swelling. There is a 2.7 cm hypoattenuating right thyroid nodule. IMPRESSION: 1. No acute abnormality of the cervical spine. 2. 2.7 cm right thyroid nodule for which outpatient thyroid ultrasound is recommended for further evaluation. Interpreted by: Xavier Briones Preliminary Report By: Xavier Briones Electronically signed By Xavier Briones Dictated Date: 06/07/2023 7:44:02 PM Prelim Date: 06/07/2023 7:48:07 PM Sign Date: 06/07/2023 7:48:07 PM Ordering Provider: [place] [id number] Note ORIGINAL EXAMINATION: CT HEAD WITHOUT IV CONTRAST TECHNIQUE: Axial CT images from skull base to vertex without IV contrast. This exam was performed according to our departmental dose optimization program, and includes the following measures where applicable: automated exposure control, adjustment of the mAs and/or kVp according to patient size and/or exam, and an iterative reconstruction algorithm. COMPARISON: None. HISTORY: ORDERING SYSTEM PROVIDED HISTORY: Reason for Exam: Injury. Fall onto left side from standing. Hit left side of head. Patient states she got dizzy and this caused her to fall. FINDINGS: Parenchyma: No acute intracranial hemorrhage, midline shift, mass effect, or acute ischemic infarct is demonstrated. The araiza-white matter junctions are preserved. No extra-axial fluid collections are seen. Ventricles: No evidence of hydrocephalus or ventricular effacement. Orbits: No acute abnormality. Calvarium: No acute abnormality. Sinuses: The paranasal sinuses and mastoid air cells are essentially clear. IMPRESSION: No acute intracranial abnormality. I have personally reviewed the images of this examination and agree with the resident's findings and interpretation. Interpreted by: Xavier Briones Preliminary Report By: Tammy Sabillon Electronically signed By Xavier Briones Dictated Date: 06/07/2023 7:35:08 PM Prelim Date: 06/07/2023 7:39:50 PM Sign Date: 06/07/2023 7:43:41 PM [facility]ing [facility] Evaluation + Plan note Diagnostic Tests Pending * Urine Culture 06/07/[address] [facility] 12-11-2023 Miscellaneous Notes* Telephone Encounter - Megan Funes LPN - 05/08/2023 3:46 PM EST See TE dated 05/08/23. Megan Funes LPN * Telephone Encounter - Coleen Connell LPN - 05/08/2023 11:50 AM EST Phone call placed brief message left with [facility] Dr. Stefano Wilhelm's office to get updated fax number. (See prior encounters) Coleen Connell LPN * Telephone Encounter - Fifi Kay LPN - 05/08/2023 11:23 AM EST Patient returned call and went over notes below with understanding. Patient said Dr is located [facility] , Dr Stefano Wilhelm. * Telephone Encounter - Megan Funes LPN - 05/05/2023 9:42 AM EST TC to pt with no answer, left VM to return call. Pt had a lumbar spine MRI 08/2021. Please see if this will work for her neurosurgeon. Please also confirm where her surgeon is located. Megan Funes LPN * Telephone Encounter - Cinthia Corona RN - 05/02/2023 2:43 PM EST Pt called in and reports she talked with her neurosurgeon Dr Wilhelm. She states he won't see her unless she has an MRI done of her back done first. Please call and advise. documented in this encounterOur [facility]12-[facility]23 Miscellaneous Notes* Telephone Encounter - Coleen Connell LPN - 05/08/2023 3:18 PM EST Faxed chart result scans, last OV to [phone] with notation to update after review if they are able to schedule patient or need to wait for scan 05/2023. Coleen Connell LPN * Telephone Encounter - Araseli Ramos RN - 05/08/2023 1:58 PM EST Leandra Perez from Dr. Stefano Wilhelm's office calls and states that patient would be considered a new patient to them. Dr. Wilhelm's office would want to see MRI Results first before scheduling. Dr. Kelloggsoffice would also like notes regarding if patient has tried physical therapy and pain management for this issue. Advised Leandra Perez that patient has MRIs scheduled for 05/30/2023 and that information will be faxed over then. Fax number for Dr. Wilhelm's office is [phone]. Araseli Ramos RN documented in this encounterOur [facility]12-11-2023 Miscellaneous Notes* Telephone Encounter - Fifi Kay LPN - 05/08/2023 11:25 AM EST Patient returned call and went over results, notes from Dr Brannon with understanding. * Telephone Encounter - Ashley Mann Ma - 05/08/2023 10:43 AM EST Called and left message on patients voicemail to return call to the office and ask to speak with a triage nurse. Ashley Mann Ma * Telephone Encounter - Will Brannon MD - 05/07/2023 12:33 PM EST Let patient know her thyroid labs were ok. documented in this encounterOur [facility]12-05-2023 History of Present illness Narrative* Naty Haddad LPN - 05/02/2023 3:46 PM EST CC Supra pubic catheter in Place HPI: Debby Bailon is a 42 year old female. The patient is here now for a supra pubic catheter change with diagnosis neurogenic bladder. Procedure: Performed a catheter change. The indwelling supra pubic cook size 18 Fr was removed with catheter tip intact without difficulty. Inserted 18 Fr catheter using aseptic technique. Very small amount oflight yellow urine noted- approximately 10 mL. Irrigated with 60 mL Sterile Water. Approximately 60mLs light pale yellow urine with some sediment throughoutnoted. Bulb inflated with 10 mLs prefilledsyringe- sterile water. T-Sponge applied to SPT base per patient preference attached to drainage bag. The patient tolerated the procedure well. Patient does not like tubing secured. Assessment/Plan: Successful catheter change. Return for catheter changes as planned. Naty Haddad LPN documented in this encounterOur [facility]12-05-2023 History of Present illness Narrative* Joni Monk MD - 05/02/2023 2:46 PM EST Debby Bailon is a 42 year old female who presents for problem visit constant menstrual bleeding for 2 month(s). Stopped bleeding 2 weeks ago. HPI: Heavy menstrual bleeding, nearly constant for 2 months. Wears pads - 2- 3/day. Doesn't check very often because she has a suprapubic catheter and colostomy bag. Patient has a history of spina bifida and recurrent UTIs. Endorses cramping - can't tell if it's due to her bladder, bowels, or uterus. Feels like bladder is getting ripped out. States this is how she feels when she has a bladder infection. Notes chills, denies fever. Denies night sweats. TEACHING PHYSICIAN NOTE OF PERSONAL INVOLVEMENT IN CARE: I have personally seen and examined the patient and performed the medical decision-making components. I have reviewed the medical student documentation and verified the findings in the note as written. Any additions or changes are noted in bold/italics. Signature: Joni Mnok Date: 05/02/2023 Time: 4:16 PM OB History T0 L0 SAB1 IAB0 Ectopic0 Multiple0 Live Births0 Education Teacher History LMP: 03/27/2023 (Approximate), Having periods Age at Menarche: Age at First : Age at Menopause: Education Teacher History Comments: Sexual Activity: Yes; Male Contraception: None PAST MEDICAL HISTORY Diagnosis Date Amputation of left great toe (HCC) 06/25/2020 Arthritis started age 19 Bilateral leg edema 07/16/2018 Cervical radiculopathy 05/02/2013 Chronic pain 02/12/[address] ([facility]) 09/30/2021 Constipation due to outlet dysfunction 10/07/2021 Cyst of ovary 11/28/2011 Diabetes mellitus with peripheral vascular disease ([facility]) 03/29/2023 Diabetic eye exam ([facility]) 06/17/2016 Last done: 01/25/2017 Diabetic eye exam (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 Will monitor. Lipomeningocele, sacral level 09/12/2013 Lumbago 02/12/2015 Major depressive disorder, recurrent, mild (HCC) 03/29/2023 Medicare annual wellness visit, subsequent 02/28/2018 last done: 02/28/2018 Migraine without aura and without status migrainosus, not intractable 10/18/2016 Miscarriage Mixed hyperlipidemia 02/28/2018 Muscle weakness of left lower extremity 08/07/2013 Neck pain 05/02/2013 Neurogenic bladder 02/12/2015 Neurogenic bowel 01/06/2016 Neuropathy 02/12/2015 post back surgery with secondary infection. Seeing Dr. Gregg Non-compliance 09/02/2022 Even stated in endocrine note from 09/01/2022 Numbness and tingling of left arm and leg 08/07/2013 Obesity, Class II, BMI 35-39.9 02/12/2015 Panic attacks Paroxysmal SVT (supraventricular tachycardia) 07/03/2017 Per 48 Hr event monitor 06/30/2017 Primary insomnia 02/17/2016 S/P hernia repair 12/11/2017 Spina bifida (HCC) 01/06/2016 Thyroid cyst 01/01/2018 Complex right sided cysts. US 12/2017, biopsy per Dr. Josue 01/23/2018 benign. Repeat US in a year. 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) 10/18/2016 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) 02/19/2016 Ventral hernia without obstruction or gangrene Weakness of both upper extremities 08/07/2013 Chronic PAST SURGICAL HISTORY Procedure Laterality Date 2D ECHO (EXEP) 06/28/2017 EF=65%. nl AMPUTATION TOE,MT-P JT Left 02/11/2020 left big toe CATH, SUPRAPUBIC/CYSTOSCOPIC 11/07/2018 COLOSTOMY 10/01/2021 CYSTOSCOPY,REMV CALCULUS,COMPLIC 11/10/2020 DILATION & CURETTAGE DX&/THER NONOBSTETRIC Dilation & curettage HERNIA REPAIR W/MESH 2019 LEXISCAN STRESS TEST 07/20/2018 negative NUCLEAR STRESS LEXISCAN (CARD) 10/24/2018 negative PAST SURGICAL HISTORY OF 2010 cholecystectomy PAST SURGICAL HISTORY OF 09/2012 back surgery x2 PAST SURGICAL HISTORY OF Left & 02/2014 foot x2 PAST SURGICAL HISTORY OF 07/2015 Bowles stoma PAST SURGICAL HISTORY OF 09/30/2021 Laparoscopic end colostomy PAST SURGICAL HISTORY OF Left 01/2021 bone removed left foot REPAIR UMBILICAL HERNIA 12/11/2017 STRESS ECHO 12/09/2019 Negative STRESS TEST 07/18/2017 normal STRESS TEST 03/15/2018 negative THYROID FINE NEEDLE ASPIRATION Right 04/13/2023 right mid thyroid FAMILY HISTORY Problem Relation Age of Onset Cancer Father Skin Arthritis Mother Diabetes Mother Heart Mother Hypertension Mother Lipids Mother Stroke Mother Thyroid Mother Cancer Maternal Grandmother LIVER CANCER Cancer Maternal Uncle Great Uncle Cancer Maternal Uncle Great Uncle Anesthesia Problems No Family History Social History Tobacco Use Smoking status: Never Smokeless tobacco: Never Vaping Use Vaping Use: Never used Substance Use Topics Alcohol use: Not Currently Comment: social Drug use: Never Current Outpatient Medications Medication Sig iv contrast (will be provided with radiology test) MRI Brain Inject, intravenously, once for 1 dose.No IV access, insert saline lock prior to beginning of sedation, infusion, injection of imaging exam.Discontinue saline lock post exam. If Pt. has a central line or IVAD, may access for administration according to line specific nursing protocol.Once exam is complete flush line and de-access according to line specific nursing protocol in the MR contrast administration guidelines link pregabalin (LYRICA) 75 mg capsule Take 1 capsule by mouth two times a day for 90 days. sulfamethoxazole-trimethoprim (BACTRIM DS) 800-160 mg per tablet Take 1 tablet by mouth every 12 hours. atorvastatin (LIPITOR) 80 mg tablet Take 1 tablet by mouth once daily. furosemide (LASIX) 40 mg tablet Take 1 tablet by mouth once daily. Take in morning oxybutynin ER (DITROPAN XL) 15 mg 24 hr Extended Rel Tab Take 1 tablet by mouth once daily. propranolol (INDERAL) 20 mg tablet Take 1 tablet by mouth two times a day. traZODone (DESYREL) 100 mg tablet Take 1 tablet by mouth daily at bedtime. topiramate (TOPAMAX) 25 mg tablet Take 1 tablet by mouth daily at bedtime. (Patient not taking: Reported on 05/02/2023) furosemide (LASIX) 20 mg tablet Take 1 tablet by mouth once daily. Take in evening DULoxetine (CYMBALTA) 30 mg capsule Take 30 mg by mouth once daily. loratadine (CLARITIN) 10 mg tablet Take 1 tablet by mouth once daily. busPIRone (BUSPAR) 15 mg tablet Take 15 mg by mouth. acetaminophen (TYLENOL) 500 mg tablet Take 650 mg by mouth. magnesium hydroxide (MOM) 400 mg/5 mL suspension Take 30 mL by mouth every 6 hours. (Patient takingdifferently: Take 30 mL by mouth every 6 hours. Takes every six hours as needed) insulin glargine (LANTUS SOLOSTAR U-100 INSULIN) 100 unit/mL (3 mL) Inject 33 Units subcutaneously daily at bedtime. E11.65 insulin aspart, niacinamide, (FIASP FLEXTOUCH U-100 INSULIN) 100 unit/mL (3 mL) pen Inject 18 Unitssubcutaneously three times daily before meals. (Includes SS # 2 QAC -> Per Dr. Ermias Salomon) MAX TDD = 55 UNITS / DAY. E11.65 lisinopril (ZESTRIL, PRINIVIL) 5 mg tablet Take 1 tablet by mouth once daily. Per Dr. Ermias Salomon sodium chloride irrig solution (NACL 0.9% IRRIGATION BOTTLE) To use for catheter irrigation daily or as needed. Insulin [place], Disposable, (COMFORT EZ PEN NEEDLES) 29 gauge x 1/2 One needle with each lantus shot once a day. Dx: E13.29 on insulin PSEUDOEPHEDRINE HCL ORAL Take 30 mg by mouth as needed. ondansetron orally disintegrating (ZOFRAN ODT) 8 mg disintegrating tablet 8 mg as needed. fluticasone (FLONASE) 50 mcg/actuation nasal spray Use 2 Sprays in each nostril once daily. Rinse mouth after use. Insulin [place], Disposable, 32 gauge x 5/16 ndle Use once daily with Victoza COMPOUNDED PRESCRIPTION Stoma catheter tube. DX: Qo5.4 and K59.2 No current facility-administered medications for this visit. Allergies As of Date: 05/02/2023 Allergen Noted Reaction CEFTRIAXONE 09/30/2021 Anaphylaxis CEPHALOSPORINS 12/09/2021 Anaphylaxis MUSHROOM 06/10/2016 Anaphylaxis PEANUT 12/23/2020 Anaphylaxis PEANUTS 06/10/2016 Anaphylaxis LATEX 02/21/2019 Rash GABAPENTIN 09/30/2021 Mental Status Change MRI CONTRAST [GADOLINIUM-CONTAINI*01/03/2017 GI Upset Fully Assessed 05/02/2023 Allergies and current medication updated:Yes EXAM: BP 128/80 Wt 216 lb (98.0kg) LMP 03/27/2023 GENERAL: pleasant, female in no apparent distress PELVIC: external genitalia normal, normal Bartholin's glands, urethra, [place]'s glands, no vulvar lesions, no cervical lesions, good vaginal support, physiologic discharge present, normal appearing perineal body and perianal region BIMANUAL: deferred ASSESSMENT AND PLAN: 42yo female with AUB Pap Check pelvic US Check CBC (thyroid labs ordered by pcp) Consult to [facility] as patient strongly desires hysterectomy & declines other options. Patient is aware she would need to have surgery at a tertiary care center. Patient has urology appt today Medical Decision Making: Problems: Moderate: New problem with uncertain prognosis Data: Unique test(s) ordered: 3+ Risk: Low: Low risk from testing/treatment Medical Decision Making Level: 4 - Moderate Joni Monk MD documented in this encounterOur [facility]12-05-2023 Instructions* Patient Instructions* Araceli Torres PA-C - 05/02/2023 8:56 AM EST Preventative: Stop TPM. Start lyrica 75mg once a day for a week or so and then increase to twice a day if tolerated Abortive: Tylenol (no more than 10 doses in a month) Follow up with neurosurgery Follow up with your eye doctor in the next 1-2 weeks, go to the ER with any vision loss Sleep study to look for sleep apnea MRI brain with and without contrast, mri cervical spine Follow up in three months Headache Preventive Treatment: Please keep in mind that it takes 4-6 weeks for the medication to start working well and 2-3 monthsat the appropriate dose before deciding if it will be useful or not. If it is not helping at all bythis time, then we will discuss other medications to try. Supplements may take 3-6 months until yousee full effect. Natural supplements: Magnesium Oxide 500 mg at bed Coenzyme Q10 300 mg in AM Vitamin B2- 200 mg twice a day Feverfew 50 mg twice a day Vitamins and herbs that show potential Magnesium: Magnesium (250 mg twice a day or 500 mg at bed) has a relaxant effect on smooth muscles such as blood vessels. Individuals suffering from frequent or daily headache usually have low magnesium levels which can be increase with daily supplementation of 400-750 mg. Three trials found 40-90%average headache reduction when used as a preventative. Magnesium also demonstrated the benefit in menstrually related migraine. Magnesium is part of the messenger system in the serotonin cascade andit is a good muscle relaxant. It is also useful for constipation which can be a side effect of other medications used to treat migraine. Good sources include nuts, whole grains, and tomatoes. Magnesium comes in many different forms: Magnesium glycinate is a good choice for those with a sensitive stomach who have gastrointestinal side effects such as diarrhea with other forms of magnesium. It is anecdotally also helpful with anxiety and sleep. Magnesium threonate also has low risk of gastrointestinal side effects and anecdotally helpful with cognitive function and brain fog symptoms. Magnesium malate has low gastrointestinal side effects and is reportedly more energizing and anecdotally often helpful in fibromyalgia and chronic fatigue syndrome. Magnesium citrate is one of the most studied, popular, and well-absorbed forms of magnesium. It can also be mixed easily with liquids if you can't take pills. However, it comes w ith a higher risk of diarrhea and gastrointestinal side effects, although this could be helpful forthose with constipation. Magnesium oxide is also well studied, cheap, and often used for heartburn and indigestion. However, it is not well absorbed and can have some laxative side effects as well, so can also be helpful for constipation. Riboflavin (vitamin B 2) 200 mg twice a day. This vitamin assists nerve cells in the production of ATP a principal energy storing molecule. It is necessary for many chemical reactions in the body. There have been at least 3 clinical trials of riboflavin using 400 mg per day all of which suggested that migraine frequency can be decreased. All 3 trials showed significant improvement in over half ofmigraine sufferers. The supplement is found in bread, cereal, milk, meat, and poultry. Most Americans get more riboflavin than the recommended daily allowance, however riboflavin deficiency is not necessary for the supplements to help prevent headache. Feverfew: Feverfew is a common garden herb [place] to [place] and popular in [facility] as a treatment for disorders typically controlled by aspirin. The mechanism of action is unknown but is believed to be related to a chemical called parthenolide which helps the body use serotonin more effectively. Serotonin helps prevent migraine and assists with resolution when it occurs. Parthenolide also inhibits the release of histamine which is linked to pain and inflammation. Consistency of active ingredients in different products can be a problem. Some formulations don't have the active ingredient (parthenolide) that prevents migraine. A parthenolide content of 0.2% is generally recommended. Typical dosage is one capsule 3 times a day. Coenzyme Q10: This is present in almost all cells in the body and is critical component for the conversion of energy. Recent studies have shown that a nutritional supplement of CoQ10 can reduce the frequency of migraine attacks by improving the energy production of cells as with riboflavin. Doses of 150 mg twice a day have been shown to be effective. Melatonin: Increasing evidence shows correlation between melatonin secretion and headache conditions. Melatonin supplementation has decreased headache intensity and duration. It is widely used as a sleep aid. Sleep is natures way of dealing with migraine. A dose of 3 mg is recommended to start for headaches including cluster headache. Higher doses up to 15 mg has been reviewed for use in Cluster headache and have been used. The rationale behind using melatonin for cluster is that many theories regarding the cause of Cluster headache center around the disruption of the normal circadian rhythm in the brain. This helps restore the normal circadian rhythm. Karis: Karis has a small amount of antihistamine and anti-inflammatory action which may help headache. It is primarily used for nausea and may aid in the absorption of other medications. HEADACHE DIET: Foods and beverages which may trigger migraine Note that only 20% of headache patients are food sensitive. You will know if you are food sensitiveif you get a headache consistently 20 minutes to 2 hours after eating a certain food. Only cut out a food if it causes headaches, otherwise you might remove foods you enjoy! What matters most for diet is to eat a well balanced healthy diet full of vegetables and low fat protein, and to not miss meals. Chocolate, other sweets ALL cheeses except cottage and cream cheese Dairy products, yogurt, sour cream, ice cream Liver Meat extracts (Bovril, Marmite, meat tenderizers) Meats or fish which have undergone aging, fermenting, pickling or smoking. These include: Hotdogs,salami,Lox,sausage, mortadellas,smoked salmon, pepperoni, Pickled spring Pods of broad ayala (Wolof beans, Spanish pea pods, Chinese (shantell) beans, persaud and navy beans Ripe avocado, ripe banana Yeast extracts or active yeast preparations such as Juarez's or Uvaldo's (commercial bakes goodsare permitted) Tomato based foods, pizza (lasagna, etc.) MSG (monosodium glutamate) is disguised as many things; look for these common aliases: Monopotassium glutamate Autolysed yeast Hydrolysed protein Sodium caseinate flavorings all natural preservatives Nutrasweet Avoid all other foods that convincingly provoke headaches. Headache Prevention Strategies: 1. Maintain a headache diary; learn to identify and avoid triggers. Common triggers include: Emotional triggers: Emotional/Upset family or friends Emotional/Upset occupation Business reversal/success Anticipation anxiety Crisis-serious Post-crisis periodNew job/position Physical triggers: Vacation Day Weekend Strenuous Exercise High Altitude Location New Move Day Physical Illness Oversleep/Not enough sleep Weather changes Light: Photophobia or light sesnitivity treatment involves a balance between desensitization and reduction in overly strong input. Use dark polarized glasses outside, but not inside. Avoid bright or fluorescent light, but do not dim environment to the point that going into a normally lit room hurts. Consider FL- 41 tint lenses, which reduce the most irritating wavelengths without blocking too muchlight. These can be obtained at [employer] or [employer] Foods: see list above. 2. Limit use of acute treatments (bdzw-vqi-xwdewvu medications, triptans, etc.) to no more than 2 days per week or 10 days per month to prevent medication overuse headache (rebound headache). 3. Follow a regular schedule (including weekends and holidays): Don't skip meals. Eat a balanced diet. 8 hours of sleep nightly. Minimize stress. Exercise 30 minutes per day. Being overweight is associated with a 5 times increased risk of chronic migraine. Keep well hydrated and drink 6-8 glasses of water per day. 4. Initiate non-pharmacologic measures at the earliest onset of your headache. Rest and quiet environment. Relax and reduce stress. Nlonqxp2Nuvbg is a free robert that can instruct you on some simple relaxtionand breathing techniques. Http://[employer] is a free website that provides teaching videos on relaxation. Also, there are many apps that can be downloaded for mindful relaxation. An robert called YOGA NIDRA will help walk you through mindfulness. Cold compresses. 5. Don't wait!! Take the maximum allowable dosage of prescribed medication at the first sign of migraine. 6. Compliance: Take prescribed medication regularly as directed and at the first sign of a migraine. 7. Communicate: Call your physician when problems arise, especially if your headaches change, increase in frequency/severity, or become associated with neurological symptoms (weakness, numbness, slurred speech, etc.). 8. Headache/pain management therapies: Consider various complementary methods, including medication, behavioral therapy, psychological counselling, biofeedback, massage therapy, acupuncture, dry needling, and other modalities. Such measures may reduce the need for medications. Counseling for pain ma nagement, where patients learn to function and ignore/minimize their pain, seems to work very well. 9. Recommend changing family's attention and focus away from patient's headaches. Instead, emphasize daily activities. If first question of day is 'How are your headaches/Do you have a headache today?', then patient will constantly think about headaches, thus making them worse. Goal is to re-directattention away from headaches, toward daily activities and other distractions. 10. Helpful Websites: www.AmericanHeadacheSociety.org www.migrainetrust.org www.headaches.org www.migraine.org.uk www.achenet.org 11. HEADACHE EXPECTATIONS: There are many types of headaches, and only a rare few in which complete relief can be expected. Ingeneral, there is no cure for headache, especially migraine based headaches. There is nothing available that completely prevents headaches from occurring, breaking through, or having periodic flare-ups and fluctuations. Regardless of what you are using on a daily basis for prevention, episodic headaches should still be expected, and periods where frequency may escalate and fluctuate are unavoidable. There is no quick fix for most headaches. Furthermore, the longer you have had high frequency headaches (such as chronic daily headache), the longer it will likely take to expect any improvement. In fact, some people will never improve, regardless of how many medications or other treatments we try.Our treatment strategy is to evaluate for possible causes of your headache, although testing is usually always normal, even in cases of daily continuous headaches for years. Most types of headache such as migraine are electrical brain disorders (similar to how epilepsy is an electrical brain disorders). Therefore, there is no testing that will reveal this dysfunctional electrical circuitry suchon MRI, or other testing. We try to find a medication that may help lessen the frequency and/or severity of your headaches. The goal is not to completely stop them from happening, although if that happens, great! Different people respond to different medications, and some people just don't respond to anything, so it's usually a matter of trying different options. We can not predict if or when exac tly you will respond to a treatment that we provide. Preventive headache medications take 4-6 weeks to start working, and 2-3 months to see full effect,assuming you reach an effective dose. Therefore, calling or messaging frequently because you have aheadache flare prior to the 3 month quynh is unlikely to change anything, and unfortunately there isnothing available that will expedite this, so please try to avoid this. Our recommendation will gene rally be to give it adequate time first. If you are unable to wait it out for medications to work, we can also try IV infusions for some temporary relief. O In general, the best that preventive medications or other treatments (including Botox) are able to offer in migraine management (variable in other headache types) is a 50% improvement in frequency and/or severity of headache. That is our goal, and any additional benefit is considered a bonus. Some people do significantly better than this, others do not get close to this. Therefore, if your headaches are not improving by at least 3 months on your preventive strategy, contact us and we can discuss further adjustments. Keep in mind that complete headache cure is not a realistic expectation. Our Team: The nursing staff, and medical assistants are a major part of YOUR TREATMENT TEAM and will be handling your phone calls, Xfluential Messages and inquiries, if any. Unless explicitly told otherwise at the time of your office visit, your study results and ensuing treatment plans will be released via Xfluential and discussed during your follow-up appointment. GrantAdlerhart: Please ask the schedulers to give you an activation code. The main way of communication isby MyChart rather than phone lines, so if you have not signed up, please do so. Scardst is also theway that you can review your labs and testing. We are not able to contact everyone to tell them results are normal. If you do not hear back from us regarding testing you have had, it should be considered normal or within normal range. If you have any questions about the results, you are free to message us. Scardst is meant for simple questions regarding medications, possible side effects, or other simplestraight forward questions in limited sentences, rather than multiple paragraphs of discussion. Scardst is not meant for, or efficient for these complex questions, extensive questions, extensive medication adjustments, complex new symptoms or concerns. These issues beyond simple questions require afollow up visit with myself, one of our physician assistants, nurse practitioners, or a Virtual Visit via computer or smart phone, as detailed further down. Refills: Please pay attention to when your refills will need to be renewed. Due to the volume of phone callsdaily, this could potentially take a few days, although we certainly try to honor your refill requests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 then we may repeat a fine-needle aspiration. documented in this encounterOur [facility]11-24-2023 Discharge summary Author Kevin Barcenas [facility] April 21, 2023 2:07am Note Date/Time April 20, 2023 11:21pm [facility] Medical Records Department [address] [place] [address] Emergency Department Summary 04/20/23 MR#: [id number] Acct: [id number] Name: DEBBY BAILON Rep #:[id number] : 1980 42 From: Kevin Barcenas MD PCP: Dr. Will Brannon MD Status:[facility] Location: ED HPI HPI - Female History of Present Illness Chief Complaint: Flank Pain Informant: patient Pain Current Severity: Moderate Maximum Severity: Moderate Associated Symptoms Associated Symptoms: Negative for Dysuria Narrative Narrative: 42-year-old female history of diabetes, chronic back pain,, kidney stones with asuprapubic catheter due to neurogenic bladder. Patient states that she has had bilateral flank pain initially started on the right than the left and both sinceTuesday. Associated nausea and vomiting. No fever. Similar episodes before when she had urinary tract infections. Prior similar symptoms: Yes Recent Illness/Hospitalization: No PFSH PFSH Medical History Anxiety and depression Arthritis Manley's palsy Cellulitis of left lower extremity Chronic back pain Chronic nausea CKD (chronic kidney disease) Colostomy in place Constipation Delayed wound healing Depression Diabetes mellitus with diabetic polyneuropathy Diabetes mellitus, type II Diabetic foot infection Diabetic polyneuropathy Diabetic ulcer of left heel with fat layer exposed DJD (degenerative joint disease) of thoracic spine Dysthymic disorder Essential hypertension Hematochezia History of kidney stones History of migraine Hydronephrosis of right kidney Hyperglycemia Hyperlipidemia Infection of bladder catheter Insomnia Lipomeningocele Lower extremity edema Microalbuminuria Morbid obesity with BMI of 40.0-44.9, adult Neurogenic bladder Neurogenic bowel Non-compliance Non-smoker Noncompliance with diabetes treatment Normochromic normocytic anemia Open wound of left foot Panic attacks PSVT (paroxysmal supraventricular tachycardia) Sepsis Sepsis Spina bifida aperta of lumbar spine Thyroid cyst Type 2 diabetes mellitus with diabetic polyneuropathy Type 2 diabetes mellitus with foot ulcer Ulcer of left heel and midfoot with fat layer exposed Uninodular goiter Urinary tract infection Urinary tract infection UTI (urinary tract infection) UTI (urinary tract infection) Weakness Home Medications furosemide 20 mg tablet 20 mg PO 2200 fluid 08/28/18 [History Last Taken 01/18/22] furosemide 40 mg tablet 40 mg PO BREAKFAST fluid 04/05/19 [History Last Taken 01/19/22] oxybutynin chloride 15 mg tablet,extended release 24 hr 15 mg PO DAILY bladder 11/12/19 [History Last Taken 01/19/22] acetaminophen 500 mg tablet 1,000 mg PO TID PRN PRN Pain Or Fever 02/12/20 [History Last Taken 09/24/20 19:24] trazodone 100 mg tablet 100 mg PO QHS sleep 01/19/21 [History Last Taken Unknown] atorvastatin 80 mg tablet 80 mg PO DAILY cholesterol 01/29/21 [History Last Taken 01/19/22] pen needle, diabetic 32 gauge x 32 (BD Ultra-Fine Hope Pen Needle) #400 ea 03/05/21 [Rx Last Taken Unknown] phenazopyridine 200 mg tablet (Pyridium) 200 mg PO BID PRN PRN Pain 11/20/21 [History Last Taken Unknown] glimepiride 2 mg tablet 2 mg PO BID #180 tabs 01/21/22 [Rx Last Taken 01/19/22] lisinopril 5 mg tablet 2.5 mg (1/2 x 5 mg) PO DAILY #90 tabs 01/21/22 [Rx Last Taken 01/19/22] propranolol 10 mg tablet 5 mg (1/2 x 10 mg) PO BID heart #30 tabs 01/21/22 [Rx Last Taken 01/19/22] ondansetron 4 mg disintegrating tablet 4 mg PO Q6H PRN nausea and vomiting #7 tabs 03/22/22 [Rx Last Taken Unknown] insulin glargine 100 unit/mL (3 mL) subcutaneous pen (Lantus Solostar U-100 Insulin) 33 unit (0.33 mL) subcut QHS dm #30 mL 09/01/22 [Rx Last Taken Unknown] pen needle, diabetic 32 gauge x /32 (BD Ultra-Fine Hope Pen Needle) #350 ea 09/01/22 [Rx Last Taken Unknown] insulin lispro 100 unit/mL subcutaneous pen (Humalog KwikPen (U-100) Insulin) 15unit (0.15 mL) subcut TID #21 mL 09/02/22 [Rx Last Taken Unknown] duloxetine 30 mg capsule,delayed release 30 mg PO DAILY 01/04/23 [History Last Taken Unknown] doxycycline monohydrate 100 mg capsule 100 mg PO BID #14 CAPSULES 02/02/23 [Rx Last Taken Unknown] nitrofurantoin monohydrate/macrocrystals 100 mg capsule 100 mg PO Q12 #14 CAPSULES 02/02/23 [Rx Last Taken Unknown] phenazopyridine 200 mg tablet (Pyridium) 200 mg PO BID PRN PRN Pain 5 days #10 tabs 04/21/23 [Rx Last Taken Unknown] sulfamethoxazole 800 mg-trimethoprim 160 mg tablet (Bactrim DS) 1 tab PO BID 10 days #20 tabs 04/21/23 [Rx Last Taken Unknown] Allergy/AdvReac Type Severity Reaction Status Date / Time ceftriaxone [From Rocephin] Allergy Hives Verified 04/20/23 22:52 mushroom Allergy Anaphylaxis Verified 04/20/23 22:52 peanut Allergy Anaphylaxis Verified 04/20/23 22:52 piperacillin [From Zosyn] Allergy NEEDS Verified 04/20/23 22:52 FOLLOW-UP tazobactam [From Zosyn] Allergy NEEDS Verified 04/20/23 22:52 FOLLOW-UP fentanyl AdvReac Low blood Verified 04/20/23 22:52 pressure gabapentin AdvReac Other Verified 04/20/23 22:52 Gadolinium-MRI Contrast AdvReac Vomiting Verified 04/20/23 22:52 Medium Latex, Natural Rubber AdvReac Rash Verified 04/20/23 22:52 vancomycin AdvReac Rash Verified 04/20/23 22:52 Family History Mother CVA (cerebral vascular accident) Thyroid disorder Diabetes Hypertension Heart disease Hyperlipidemia Myocardial infarction, Onset Age: 54 mother had diabetes Father Cancer skin Grandmother Cancer liver Other Arthritis Skin cancer Surgical History history insertion suprapubic catheter History of cholecystectomy History of dilation and curettage History of spinal surgery Hx of foot surgery Hx of ventral hernia repair S/P colostomy S/P thyroid biopsy (~11/06/19) Status post gastric surgery Social History household members: significant other Smoking Status: Never smoker alcohol intake: current substance use type: does not use ROS ROS ED ROS Narrative Nausea and vomiting. Bilateral flank pain. Review of Systems ROS Unobtainable: Denies due to encephalopathy Constitutional Constitutional ED: Reports chills; Denies fever(s) Eyes Eyes: Denies blurry vision ENT ENT ED: Denies ear pain Cardiovascular Cardiovascular: Denies chest pain Respiratory/Chest Respiratory/Chest: Denies cough or dyspnea Gastrointestinal Gastrointestinal: Reports abdominal pain, nausea and vomiting Genitourinary Genitourinary ED: Denies dysuria Musculoskeletal Musculoskeletal: Denies arthralgias Integumentary Denies abscess Neurologic Neurologic: Denies headache(s) Psychiatric Psychiatric: Denies anxiety Endocrine Endocrinology: Denies heat intolerance Hematologic/Lymphatic Hematologic/Lymphatic: Denies easy bleeding Allergic/Immunologic Allergic/Immunologic ED: Denies mouth swelling EXAM Physical Exam Narrative Exam Narrative: 42-year-old female vital signs are stable afebrile. Flank pain. H EENT exam unremarkable. Lungs are clear equal and symmetrical. Heart regular rhythm rateabout 87 no murmur. Chest wall nontender. Abdomen soft nondistended normal bowel sounds no peritoneal signs. No hernia or mass. Back nontender. Moving all 4 extremities. Nontender. Normal range of motion. She is awake and alert. Const Vital Signs: 11/23/23 22:50 04/21/23 01:23 Temperature 98.3 F Temperature Source Temporal Pulse Rate 87 Respiratory Rate 18 16 Blood Pressure 136/88 H Blood Pressure Mean 104 Pulse Ox 100 Oxygen Delivery Method Room Air Positive well nourished and well developed; Negative for cachectic, contracturesor unkempt General Appearance ED: well developed and NAD; Negative for unkempt, cachectic, contractures or pallor Nutritional Appearance: Negative for cachectic HEENT Reports moist mucous membranes Negative for trauma or tenderness Eyes PERRL and EOMs intact bilaterally General Eye ED: Negative for pale conjunctiva or scleral icterus Neck no lymphadenopathy, supple and no JVD General: Negative for other Thyroid: Negative for tender Lymph Lymphatic: Negative for other Chest Wall inspection of chest normal and palpation of chest normal Chest: Negative for other Resp normal respiratory effort and clear to auscultation bilaterally Effort and Inspection: Negative for pain with movement Auscultation: Negative for rales, rhonchi or wheezes Cardio regular rate, regular rhythm, S1 normal heart sound, no murmurs and no JVD Rate: Negative for bradycardia or tachycardic GI normal to inspection, nondistended, normoactive bowel sounds, soft to palpation,non-tender, non-distended and no masses Auscultation: normoactive bowel sounds Palpation: Negative for tender, guarding or rigid Back/Spine no CVA tenderness General Back: Negative for CVA tenderness Cervical Spine: Negative for cervical spine tenderness Thoracic Spine / Upper Back: Negative for thoracic spinal tenderness Lumbar Spine / Lower Back: Negative for lumbar spinal tenderness Sacrum: Negative for other Extremity normal to inspection and full ROM General Extremety ED: Negative for edema or tenderness General Extremity: Negative for edema Neuro oriented x3 and CN's II-XII intact bilaterally Sensorium / Orientation: alert, oriented to person, oriented to place and oriented to time Motor Exam: strength 5/5 throughout Psych mental status grossly normal Appearance: Negative for unkempt Attitude: No agitated Speech: No other Mood & Affect: Negative for depressed, anxious or tearful Skin no rashes or lesions noted and no wounds General Skin Exam: Negative for jaundice or pallor Rashes: No rashes noted Trauma: Negative for other MDM MDM MDM Narrative Medical decision making narrative: 42-year-old female with flank pain. History of UTIs. She be treated with IV Zofran for nausea, Toradol for pain and screening labs along with urinalysis will be obtained. She has a chronic indwelling suprapubic catheter is high we will get the urine. Repeat exam patient is doing well at 2 AM. We discussed her test results. She will be treated for a urinary tract infection. Urine culture sent. I checked her last few cultures. They have been sensitive to Bactrim. She has no issue with that medication. She will be started on Bactrim given first dose here twice daily for 10 days. Patient is comfortable being discharged home. History & Record Review Discussion w/independent historian: Patient and Family Additional record(s) reviewed:: Prior inpatient record, Prior outpatient record,Prior ED visit and Prior labs Lab Data Attestation: I reviewed the patient's lab results. Lab results narrative: CBC shows a white count 12.4. H&H of 13 and 40. Platelets 281. Electrolytes show sodium 134. Gap of 5. Normal BUN and creatinine of 11 and 1. Glucose is elevated at 422 which is common for this patient to have poorly controlled blood sugars. Urinalysis shows positive nitrites 10-25 white cells and 2+ bacteria. A culturewill be sent. This to be treated as a UTI. Labs: Laboratory Results - last 24 hr 04/20/23 23:35 WBC 12.4 H RBC 4.50 Hgb 13.1 Hct 40.1 MCV 89.1 MCH 29.1 MCHC 32.7 RDW Std Deviation 43.6 RDW Coeff of Claude 13.4 Plt Count 281 MPV 10.7 Immature Gran % (Auto) 1.000 H Neut % (Auto) 61.2 Lymph % (Auto) 26.1 [place] % (Auto) 9.3 Eos % (Auto) 1.5 Baso % (Auto) 0.9 Absolute Neuts (auto) 7.6 Absolute Lymphs (auto) 3.22 Nucleated RBC % 0 Sodium 134 L Potassium 3.8 Chloride 104 Carbon Dioxide 25.0 Anion Gap 5 BUN 11 Creatinine 1.00 Estim Creat Clear Calc 55.87 Est GFR (MDRD) Af Amer 78 Est GFR (MDRD) Non-Af 65 BUN/Creatinine Ratio 11.0 Glucose 422 H Calcium 8.8 Urine Color Yellow Urine Clarity Sl. Cloudy Urine pH 7.0 Ur Specific Isabella 1.010 Urine Protein 30 H Urine Glucose (UA) 1000 H Urine Ketones Negative Urine Occult Blood 10 H Urine Nitrite Positive H Urine Bilirubin Negative Urine Urobilinogen Normal Ur Leukocyte Esterase 500 H Urine RBC 0 SEEN Urine WBC 10-25 SEEN Ur Squamous Epith Cells 0 SEEN Amorphous Sediment 2+ Urine Bacteria 2+ Urine Mucus 0 SEEN Discharge Plan Triage Chief Complaint: Flank Pain ED Provider: Kevin Barcenas Dx/Rx/DC Orders Clinical Impression: Urinary tract infection, History of suprapubic catheter, History of kidney stones, History of diabetes mellitus Instructions: ED Cystitis Female Adult Prescriptions: New sulfamethoxazole-trimethoprim [Bactrim DS] 800-160 mg tablet 1 tab PO BID 10 Days Qty: 20 0RF phenazopyridine [Pyridium] 200 mg tablet 200 mg PO BID PRN PRN (Reason: Pain) 5 Days Qty: 10 0RF No Action atorvastatin 80 mg tablet 80 mg PO DAILY Patient Comments: Take 1 tablet by mouth once daily. (DME) pen needle, diabetic [BD Ultra-Fine Hope Pen Needle] 32 gauge x 5/32 needle See Rx Instructions .ROUTE .MEDSUPPLY Qty: 400 6RF Rx Instructions: 4x/day insulin glargine [Lantus Solostar U-100 Insulin] 100 unit/mL (3 mL) insulin pen 33 unit SC QHS Qty: 30 1RF (DME) pen needle, diabetic [BD Ultra-Fine Hope Pen Needle] 32 gauge x 5/32 needle See Rx Instructions .ROUTE .MEDSUPPLY Qty: 350 1RF Rx Instructions: 4 times daily furosemide 20 MG tablet 20 mg PO 2200 Hold Instructions: Resume on 11/24/21. Rx Instructions: 20 mg in the evening furosemide 40 MG tablet 40 mg PO BREAKFAST Hold Instructions: Resume on 11/24/21. oxybutynin chloride 15 mg tablet extended release 24hr 15 mg PO DAILY acetaminophen 500 MG tablet 1,000 mg PO TID PRN PRN (Reason: Pain Or Fever) trazodone 100 mg tablet 100 mg PO QHS Patient Comments: Take 1 tablet by mouth daily at bedtime. phenazopyridine [Pyridium] 200 MG tablet 200 mg PO BID PRN PRN (Reason: Pain) glimepiride 2 mg tablet 2 mg PO BID Qty: 180 3RF Rx Instructions: Hold if glucose less than 130 mg/dl propranolol 10 MG tablet 5 mg PO BID Qty: 30 0RF Rx Instructions: Hold for heart less than 60 or systolic blood pressure less than 100 mmHg. lisinopril 5 mg tablet 2.5 mg PO DAILY Qty: 90 3RF Rx Instructions: Hold for SBP less than 130 mmHg ondansetron 4 mg tablet,disintegrating 4 mg PO Q6H PRN (Reason: nausea and vomiting) Qty: 7 0RF duloxetine 30 mg capsule,delayed release(DR/EC) 30 mg PO DAILY Patient Comments: TAKE 1 CAPSULE BY MOUTH DAILY doxycycline monohydrate 100 mg capsule 100 mg PO BID Qty: 14 0RF nitrofurantoin monohyd/m-cryst [nitrofurantoin monohyd/m-cryst] 100 mg capsule 100 mg PO Q12 Qty: 14 0RF insulin lispro [Humalog KwikPen Insulin] 100 unit/mL insulin pen 15 unit subcut TID MDD 60 Qty: 21 5RF Rx Instructions: 180-220 +4 221-260 +6 261-300 8 >300 +10 Primary Care Provider: Will Brannon Referrals: Will Brannon MD [Primary Care Provider] - 3-5 Days if not improving Activity Restrictions/Additional Instructions: Plenty of fluids and rest. Cranberry juice. Motrin and Tylenol for pain. The antibiotic Bactrim 1 pill twice a day. A urine culture was sent. Those results should be back in 48 hours. If those results do not match the antibiotic we have started you on we will notify you and change antibiotic if needed. Pyridium for bladder spasm. Disposition Disposition: Home, Self Care What to do if you have Problems For any increased pain, shortness of breath, bleeding, nausea or vomiting, chestpain, or any unexpected problems, contact your Primary Care Provider. Call [facility] ([phone]) or report to the closest Emergency Room. Call 911 if necessary. 04/21/23 0207 <Electronically signed by Kevin Barcenas MD> Cosigner Signature (if applicable): CC: Dr. Will Brannon MD ~ Signed [facility] Work Phone: [phone] 419-198111-16-2023 Instructions* Patient Instructions* Trena Lackey RN - 04/13/2023 2:41 PM EST The following instructions are important for you related to your office visit today with the [facility] General Surgeons. Instructions After THYROID FINE NEEDLE ASPIRATION Please do not take aspirin or other blood thinners for the next few days. If you have bleeding fromthe needle site, hold pressure with a clean gauze. If the bleeding continues, contact our office immediately. I recommend taking Advil or Tylenol for the discomfort. An ice pack may improve your discomfort to the area. Contact our office immediately if you have any questions or concerns @ [phone]. If you note any additional difficulties, questions, or concerns, you should contact our office immediately @ [phone] and ask to be transferred to the General Surgery department. documented in this encounterOur [facility]11-16-[facility]23 History of Present illness Narrative* Xavier Josue MD - 04/13/2023 2:36 PM EST Preoperative diagnosis: Right thyroid nodule Postoperative diagnosis: The same Procedure: Ultrasound-guided fine-needle aspiration of dominant right thyroid nodule Surgeon: Joselo Procedure: Ultrasound of the right thyroid gland revealed a dominant nodule in question. I prepped the skin with alcohol. I injected 1% lidocaine plain. Under ultrasound guidance I took 3 passes witha 22-gauge needle. Affirm testing was performed. These were all plated on glass slides. Sterile dressings were applied. The patient tolerated the procedure well. * Trena Lackey RN - 04/13/2023 2:30 PM EST UNIVERSAL PROTOCOL / SAFETY CHECKLIST Procedure to be Performed: Ultrasound Guided Fine Needle Aspiration Thyroid right Sign In: A Moment of CARE was completed. Personnel directly involved with the procedure wore the appropriate PPE (Personal Protective Equipment). No special equipment needed. Patient/Surrogate Stated/Verified: PATIENT VERIFIED(optional for EMERGENT procedures): Patient name, Date of , Relevant allergies, and The intended procedure Time Out Communication: Intended patient and procedure match the source documents. Consent documented and matches the intended procedure. Relevant labs, photos, and/or imaging studies have been reviewed. Correct side/site marked and visible. Medications required for procedure verified. No fire risk assessment and interventions applicable. No implant(s) inserted. Sign Out: SIGN OUT (optional for EMERGENT procedures): All specimen containers correctly labeled. No instruments, equipment or retained foreign bodies applicable. Post-procedure follow-up management communicated and Plan of Care Visit completed when applicable. Trena Lackey RN documented in this encounterOur [facility] Of [facility]11-16-2023 History of Present illness Narrative* Xavier Josue MD - 04/13/2023 2:27 PM EST HISTORY AND PHYSICAL Debby Colette Uvaldo 1980 REFERRING PHYSICIAN: No ref. provider found CHIEF COMPLAINT: Consult (Abnormal thyroid US.) HPI: The patient is a 42 year old female with a complaint of a right thyroid nodule. This thyroid nodule was found on Ultrasound by [facility]. The patient denies pain, denies difficulty swallowing, deniesrapid enlargement of the neck, deniesdysphagia, denies a change in the voice, denies hot or cold intolerence. The patient has not a prior history of neck radiation treatment. NODULE 1: Location: Right mid Size: 3.3 x 2.7 x 2.5 cm, previously 3.2 x 2.5 x 2.3 cm. Characteristics: Composition: Mixed cystic and solid, 1 point Echogenicity: Echogenicity cannot be determined, 1 point Shape: [id number]-rnro-[id number], 0 points Margin: Lobulated or irregular, 2 points Echogenic foci (add points for all that apply): None, 0 points Internal vascularity: present Interval growth: No significant growth given differences in technique TI-RADS Category: TR4 ACR Recommendation: TI-RADS 4 nodule. FNA is recommended. The patient is being seen by me today at the request of Dr. Will Brannon MD for my opinion and advice regarding Thyroid nodule (primary encounter diagnosis). PAST MEDICAL HISTORY Diagnosis Date Amputation of left great toe (HCC) 06/25/2020 Arthritis started age 19 Bilateral leg edema 07/16/2018 Cervical radiculopathy 05/02/2013 Chronic pain 02/12/[address] (HCC) 09/30/2021 Constipation due to outlet dysfunction 10/07/2021 Cyst of ovary 11/28/2011 Diabetes mellitus with peripheral vascular disease ([facility]) 03/29/2023 Diabetic eye exam ([facility]) 06/17/2016 Last done: 01/25/2017 Diabetic eye exam (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 Will monitor. Lipomeningocele, sacral level 09/12/2013 Lumbago 02/12/2015 Major depressive disorder, recurrent, mild ([facility]) 03/29/2023 Medicare annual wellness visit, subsequent 02/28/2018 last done: 02/28/2018 Migraine without aura and without status migrainosus, not intractable 10/18/2016 Miscarriage Mixed hyperlipidemia 02/28/2018 Muscle weakness of left lower extremity 08/07/2013 Neck pain 05/02/2013 Neurogenic bladder 02/12/2015 Neurogenic bowel 01/06/2016 Neuropathy 02/12/2015 post back surgery with secondary infection. Seeing Dr. Gregg Non-compliance 09/02/2022 Even stated in endocrine note from 09/01/2022 Numbness and tingling of left arm and leg 08/07/2013 Obesity, Class II, BMI 35-39.9 02/12/2015 Panic attacks Paroxysmal SVT (supraventricular tachycardia) 07/03/2017 Per 48 Hr event monitor 06/30/2017 Primary insomnia 02/17/2016 S/P hernia repair 12/11/2017 Spina bifida (HCC) 01/06/2016 Thyroid cyst 01/01/2018 Complex right sided cysts. US 12/2017, biopsy per Dr. Josue 01/23/2018 benign. Repeat US in a year. Type 2 diabetes mellitus with albuminuria ([facility]) 10/18/2016 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) 02/19/2016 Ventral hernia without obstruction or gangrene Weakness of both upper extremities 08/07/2013 Chronic PAST SURGICAL HISTORY Procedure Laterality Date 2D ECHO (EXEP) 06/28/2017 EF=65%. nl AMPUTATION TOE,MT-P JT Left 02/11/2020 left big toe CATH, SUPRAPUBIC/CYSTOSCOPIC 11/07/2018 COLOSTOMY 10/01/2021 CYSTOSCOPY,REMV CALCULUS,COMPLIC 11/10/2020 DILATION & CURETTAGE DX&/THER NONOBSTETRIC Dilation & curettage HERNIA REPAIR W/MESH 2018 LEXISCAN STRESS TEST 07/20/2018 negative NUCLEAR STRESS LEXISCAN (CARD) 10/24/2018 negative PAST SURGICAL HISTORY OF 2010 cholecystectomy PAST SURGICAL HISTORY OF 09/2012 back surgery x2 PAST SURGICAL HISTORY OF Left & 02/2014 foot x2 PAST SURGICAL HISTORY OF 07/2015 Bowles stoma PAST SURGICAL HISTORY OF 09/30/2021 Laparoscopic end colostomy REPAIR UMBILICAL HERNIA 12/11/2017 STRESS ECHO 12/09/2019 Negative STRESS TEST 07/18/2017 normal STRESS TEST 03/15/2018 negative Current Outpatient Medications Medication Sig Dispense Refill atorvastatin (LIPITOR) 80 mg tablet Take 1 tablet by mouth once daily. 90 tablet 1 furosemide (LASIX) 40 mg tablet Take 1 tablet by mouth once daily. Take in morning 90 tablet 1 oxybutynin ER (DITROPAN XL) 15 mg 24 hr Extended Rel Tab Take 1 tablet by mouth once daily. 90 tablet 1 propranolol (INDERAL) 20 mg tablet Take 1 tablet by mouth two times a day. 180 tablet 1 traZODone (DESYREL) 100 mg tablet Take 1 tablet by mouth daily at bedtime. 90 tablet 1 topiramate (TOPAMAX) 25 mg tablet Take 1 tablet by mouth daily at bedtime. 90 tablet 1 furosemide (LASIX) 20 mg tablet Take 1 tablet by mouth once daily. Take in evening 90 tablet 1 DULoxetine (CYMBALTA) 30 mg capsule Take 30 mg by mouth once daily. loratadine (CLARITIN) 10 mg tablet Take 1 tablet by mouth once daily. 30 tablet 11 busPIRone (BUSPAR) 15 mg tablet Take 15 mg by mouth. acetaminophen (TYLENOL) 500 mg tablet Take 650 mg by mouth. magnesium hydroxide (MOM) 400 mg/5 mL suspension Take 30 mL by mouth every 6 hours. (Patient takingdifferently: Take 30 mL by mouth every 6 hours. Takes every six hours as needed) insulin glargine (LANTUS SOLOSTAR U-100 INSULIN) 100 unit/mL (3 mL) Inject 33 Units subcutaneously daily at bedtime. E11.65 0 insulin aspart, niacinamide, (FIASP FLEXTOUCH U-100 INSULIN) 100 unit/mL (3 mL) pen Inject 18 Unitssubcutaneously three times daily before meals. (Includes SS # 2 QAC -> Per Dr. Ermias Salomon) MAX TDD = 55 UNITS / DAY. E11.65 60 mL 2 lisinopril (ZESTRIL, PRINIVIL) 5 mg tablet Take 1 tablet by mouth once daily. Per Dr. Ermias Salomon sodium chloride irrig solution (NACL 0.9% IRRIGATION BOTTLE) To use for catheter irrigation daily or as needed. 1000 mL 11 Insulin [place], Disposable, (COMFORT EZ PEN NEEDLES) 29 gauge x 1/2 One needle with each lantus shot once a day. Dx: E13.29 on insulin 100 Each 3 PSEUDOEPHEDRINE HCL ORAL Take 30 mg by mouth as needed. ondansetron orally disintegrating (ZOFRAN ODT) 8 mg disintegrating tablet 8 mg as needed. fluticasone (FLONASE) 50 mcg/actuation nasal spray Use 2 Sprays in each nostril once daily. Rinse mouth after use. 1 Bottle 3 Insulin [place], Disposable, 32 gauge x 5/16 ndle Use once daily with Victoza 100 Each 5 COMPOUNDED PRESCRIPTION Stoma catheter tube. DX: Qo5.4 and K59.2 1 Device 0 No current facility-administered medications for this visit. ALLERGIES: Ceftriaxone, Cephalosporins, Mushroom, Peanut, Peanuts, Latex, Gabapentin, and Mri Contrast [Gadolinium-Containing Contrast Media] PERSONAL HISTORY: Social History Tobacco Use Smoking status: Never Smokeless tobacco: Never Vaping Use Vaping Use: Never used Substance Use Topics Alcohol use: Not Currently Comment: social Drug use: Never FAMILY HISTORY: FAMILY HISTORY Problem Relation Age of Onset Cancer Father Skin Arthritis Mother Diabetes Mother Heart Mother Hypertension Mother Lipids Mother Stroke Mother Thyroid Mother Cancer Maternal Grandmother LIVER CANCER Cancer Maternal Uncle Great Uncle Cancer Maternal Uncle Great Uncle Anesthesia Problems No Family History REVIEW OF SYMPTOMS: The review of systems data was entered by the nurse and reviewed by me There are no exam notes on file for this visit. PHYSICAL EXAMINATION: General: The patient is 42 year old female, well nourished, well hydrated in no acute distress. Thepatient is oriented to time, place, and person. VITALS: Blood pressure 128/80, pulse 112, temperature 36.2 C (97.1 F), height 157.5 cm (5' 2), weight 99 kg (218 lb 3.2 oz), last menstrual period 03/27/2023, SpO2 99 %. Body mass index is 39.91 kg/m . HEENT: Normal cephalic, ataumatic, pupils are equally round, sclera are anicteric, mucous membranesare moist, oropharynx is clear. Neck has no masses, asymmetry or lymphadenopathy. Thyroid exam no hard palpable nodules. Respiratory: Clear to auscultation and percussion. Normal respiratory excursion and pattern. Cardiac: Examination is regular rate and rhythm. Abdominal exam: Soft, nontender, with no palpable masses. No hepatosplenomegaly. No palpable hernias. Rectal exam: exam deferred Extremities: no clubbing, cyanosis or edema. No adenopathy. Other: LABORATORY VALUES: As Noted RADIOLOGIC STUDIES: As Noted Assessment IMPRESSION: NODULE - right THYROID PLAN: I plan to perform an FNAC of the right Thyroid. Diagnoses: (E04.1) Thyroid nodule (primary encounter diagnosis) My findings have been communicated to Dr. Will Brannon MD via shared medical record. This note will be forwarded to Dr. Will Brannon MD. Return to Clinic: The patient is instructed to follow-up with me 1 week post operatively. Xavier Josue III, MD documented in this encounterOur [facility]11-16-2023 Miscellaneous Notes* Telephone Encounter - Will Brannon MD - 04/13/2023 11:26 AM EST No change in rechecking labs in a month. * Telephone Encounter - Katalina Ruffin RN - 04/13/2023 10:33 AM EST Patient returned call and given provider's message below and patient verbalized understanding. Pt wanted Dr. Brannon to also know that she will be seeing Dr. Josue today for thyroid cyst biopsyand to let her know if this changes Dr. Brannon's plan to recheck her thyroid labs in 1 month. If this does not change anything, no call back is needed. Gerardo Ruffin RN * Telephone Encounter - Josesiot Verdin LPN - 04/13/2023 9:37 AM EST Left message for pt to contact office. Josesito Verdin LPN * Telephone Encounter - Will Brannon MD - 04/13/2023 8:37 AM EST Let patient know her Mg level was ok and her electrolyte panel was ok except for high blood sugar. Her A1c is still high at 11.1% Her lipid panel showed her Trigs are elevated at 226 (goal<150 and was 140), HDL low at 37 (goal>50) and LDL elevated at 106 (goal<100). Find out from her if she just restarted the atorvastatin with the recent script. Her Thyroid lab is just slightly below normal. Want to repeat some thyroid labs in a month. Orders placed. documented in this encounterOur [facility]11-09-2023 Miscellaneous Notes* Letter - Coordinator, Mammography - 04/06/2023 9:06 AM EST April 06, 2023 PID: [id number] Debby Bailon [address] [place] [address] Dear Ms. Bailon, Your recent breast imaging exam on 04/05/2023 showed a possible finding that requires additional imaging studies for a complete evaluation. Most such findings are probably benign (not cancer). Your mammogram demonstrates that you have dense breast tissue, which could hide abnormalities. Dense breast tissue, in and of itself, is a relatively common condition. Therefore, this information is not provided to cause undue concern; rather, it is to raise your awareness and promote discussion with your health care provider regarding the presence of dense breast tissue in addition to other riskfactors. If you have a healthcare provider who ordered/prescribed your screening mammogram: Please call [phone] or [phone]: [phone] to schedule an appointment for your additional imaging (if youhave not already done so). If you DO NOT have a healthcare provider (ie you did not have an order/prescription for your screening mammogram): Please call to schedule an appointment for your additional imaging (if you have not already done so). You must have an order/prescription from your physician when calling to schedule your appointment. If your order/prescription is not electronic, you must bring the hard copy with you on the day of your exam to avoid delays. Your imaging studies and reports are [facility] at [facility] as part of your permanent medical record, and are available for your continuing care. Thank you for allowing us to help in meeting your health care needs. Sincerely, Dr. Santillan Interpreting Radiologist [facility] (Additional imaging) documented in this encounterOur Lady Of Mercy [facility]11-07-2023 History of Present illness Narrative* Naty Haddad LPN - 04/04/2023 4:26 PM EST CC Supra pubic catheter in Place HPI: Debby Bailon is a 42 year old female. The patient is here now for a supra pubic catheter change with diagnosis neurogenic bladder. Procedure: Performed a catheter change. The indwelling supra pubic cook size 18 Fr was removed with catheter tip intact without difficulty. Inserted 18 Fr catheter using aseptic technique. Very small amount oflight yellow urine noted. Irrigated with 60 mL 0.9% sodium chloride. Approximately 60 mLs light pale yellow urine noted. Bulb inflated with 10 mLs prefilled syringe- sterile water. T-Sponge applied to SPT base per patient preference attached to drainage bag. The patient tolerated the procedure well. Patient does not like tubing secured. Assessment/Plan: Successful catheter change. Return for catheter changes as planned. Naty Haddad LPN documented in this encounterOur Lady Of Mercy Hospital10-10-2023 History of Present illness Narrative* Naty Haddad LPN - 03/07/2023 4:05 PM EDT CC Supra pubic catheter in Place HPI: Debby Bailon is a 42 year old female. The patient is here now for a supra pubic catheter change with diagnosis neurogenic bladder. Procedure: Performed a catheter change. The indwelling supra pubic cook size 18 Fr was removed with catheter tip intact without difficulty. Inserted 18 Fr catheter using aseptic technique. Small amount of light yellow urine with lsmall amount of sediment throughout. Irrigated with 60 mL sterile water. Approximately 60 mLs light pale yellow urine noted. Bulb inflated with 10 mLs prefilled syringe- sterile water. T-Sponge applied to SPT base per patient preference attached to drainage bag. The patient tolerated the procedure well. Patient does not like tubing secured. Assessment/Plan: Successful catheter change. Return for catheter changes as planned. Naty Haddad LPN documented in this encounterOur Lady Of Mercy Hospital10-03-2023 Miscellaneous Notes* Telephone Encounter - Bayron Arriaga RN - 02/28/2023 11:54 AM EDT Pt returned call and given provider's message below with verbalized understanding. * Telephone Encounter - Amarilys Hayes OCCA - 02/28/2023 9:27 AM EDT Second attempt to reach patient by phone with no answer. Left additional VM to return call to office. MC message also sent asking patient to contact office. Amarilys Strait, OCCA * Telephone Encounter - Jessie Connell LPN - 02/27/2023 6:57 PM EDT Left a message for pt to call the office and ask to speak to a nurse. Jessie Connell LPN * Telephone Encounter - Will Brannon MD - 02/27/2023 6:17 PM EDT Let patient know thyroid cyst is stable. documented in this encounterOur Lady Of Mercy Hospital09-30-2023 Hospital Discharge instructions Patient Education 02/25/2023 20:24:12 Urinary Tract Infection, Adult, Vkce-ls-Fkuy Urinary Tract Infection, Adult A urinary tract infection (UTI) is an infection of any part of the urinary tract. The urinary tractincludes: The kidneys. The ureters. The bladder. The urethra. These organs make, store, and get rid of pee (urine) in the body. What are the causes? This is caused by germs (bacteria) in your genital area. These germs grow and cause swelling (inflammation) of your urinary tract. What increases the risk? You are more likely to develop this condition if: You have a small, thin tube (catheter) to drain pee. You cannot control when you pee or poop (incontinence). You are female, and: ?You use these methods to prevent : ?A medicine that kills sperm (spermicide). ?A device that blocks sperm (diaphragm). ?You have low levels of a female hormone (estrogen). ?You are . You have genes that add to your risk. You are sexually active. You take antibiotic medicines. You have trouble peeing because of: ?A prostate that is bigger than normal, if you are male. ?A blockage in the part of your body that drains pee from the bladder (urethra). ?A kidney stone. ?A nerve condition that affects your bladder (neurogenic bladder). ?Not getting enough to drink. ?Not peeing often enough. You have other conditions, such as: ?Diabetes. ?A weak disease-fighting system (immune system). ?Sickle cell disease. ?Gout. ?Injury of the spine. What are the signs or symptoms? Symptoms of this condition include: Needing to pee right away (urgently). Peeing often. Peeing small amounts often. Pain or burning when peeing. Blood in the pee. Pee that smells bad or not like normal. Trouble peeing. Pee that is cloudy. Fluid coming from the vagina, if you are female. Pain in the belly or lower back. Other symptoms include: Throwing up (vomiting). No urge to eat. Feeling mixed up (confused). Being tired and grouchy (irritable). A fever. Watery poop (diarrhea). How is this treated? This condition may be treated with: Antibiotic medicine. Other medicines. Drinking enough water. Follow these instructions at home: Medicines Take [id number]-dasgbpr and prescription medicines only as told by your doctor. If you were prescribed an antibiotic medicine, take it as told by your doctor. Do not stop taking it even if you start to feel better. General instructions Make sure you: ?Pee until your bladder is empty. ?Do not hold pee for a long time. ?Empty your bladder after sex. ?Wipe from front to back after pooping if you are a female. Use each tissue one time when you wipe. Drink enough fluid to keep your pee pale yellow. Keep all follow-up visits as told by your doctor. This is important. Contact a doctor if: You do not get better after 1 2 days. Your symptoms go away and then come back. Get help right away if: You have very bad back pain. You have very bad pain in your lower belly. You have a fever. You are sick to your stomach (nauseous). You are throwing up. Summary A urinary tract infection (UTI) is an infection of any part of the urinary tract. This condition is caused by germs in your genital area. There are many risk factors for a UTI. These include having a small, thin tube to drain pee and notbeing able to control when you pee or poop. Treatment includes antibiotic medicines for germs. Drink enough fluid to keep your pee pale yellow. This information is not intended to replace advice given to you by your health care provider. Make sure you discuss any questions you have with your health care provider. Document Released: 10/31/2008 Document Revised: 05/02/2019 Document Reviewed: 11/22/2018 [employer] Patient Education 2020 H.BLOOM. Follow Up Care 02/21/2023 17:18:29 With:BEV NGO MD Address: [address] [facility] [address] [phone] When:2-4 days Comments:Please call to schedule an appt with this Infectious Disease Physician. With:WILL BRANNON MD Address: [address], [place] [phone]- When:3-5 days Comments:Please call your PC after d/c and schedule a Follow up appt. [facility] 09-30-2023 Note Discharge Instructions Thank you for allowing [facility] to assist you with your healthcare needs. The following is importantdischarge information regarding your hospital visit. Your Care Team WILL BRANNON MD Your Diagnosis Lower leg pain-swelling Neurogenic bladder disorder Recurrent UTI (urinary tract infection), Urinary tract infection Spina bifida Type 2 diabetes mellitus What to do next Follow Up Appointments Follow Up with BEV NGO MD When Within 2-4 days Why: Please call to schedule an appt with this Infectious Disease Physician. Where: [address] [facility] [address] [phone] Follow Up with WILL BRANNON MD When Within 3-5 days Why: Please call your PC after d/c and schedule a Follow up appt. Where: [address], [place] [phone]- The Following Activity and Diet Have Been Ordered for You Discharge Activity - Ordered -- Resume your pre-hospitalization activity, 02/25/23 14:32:00 EDT Discharge Diet - Ordered -- No changes were made to your diet during your hospital stay. Please resume your pre hospitalization diet on discharge., 02/25/23 14:32:00 EDT The Following Equipment Has Been Ordered for You No qualifying data available. The Following Treatments Have Been Ordered for You Discharge Labs No qualifying data available. Discharge Radiology No qualifying data available. Other Therapies No qualifying data available. Post Acute Orders No qualifying data available. Someone Will Contact You Regarding These Home Health Referrals No home referrals have been ordered for you. No one will call you. Allergies Mushrooms (Throat swelling) Peanuts (Throat swelling) Rocephin (Hives) cephalosporins (Anaphylaxis, Hives) gabapentin (psychotic breakdown) Contrast dye (Vomiting) Latex (Hives) penicillin (Unknown) Medications Please ask your primary doctor or pharmacist before taking any other medication not listed, including over the counter drugs, herbal medications, vitamins and or supplements as they may interact withyour home medications. What How Much When Instructions Last Dose New aztreonam (Azactam 1 g injection) 1 gram(s) Intramuscular Every 8 hours New DME (DME MISCellaneous) See instructions Sterile water, 40 syringes, 40 needles, alchohol swabs. Printed Prescription Changed DULoxetine (Cymbalta 30 mg oral delayed release capsule) 1 cap by mouth Once a day Changed insulin glargine (Lantus 100 units/ mL10 ml vial solution) 33 unit(s) Subcutaneous Daily at bedtime Changed insulin glargine (Lantus) 33 unit(s) Subcutaneous Daily at bedtime Unchanged furosemide (Lasix 20 mg oral tablet) 2 tab(s) by mouth Once a day (in the morning) Unchanged furosemide (Lasix 20 mg oral tablet) 1 tab(s) by mouth Once a day (in the evening) Unchanged insulin aspart (Novolog) (Fiasp FlexTouch 100 units/ mL injectable solution) See instructions Sliding scale TIDAC Unchanged lisinopril (lisinopril 2.5 mg oral tablet) 1 tab(s) by mouth Once a day Unchanged oxybutynin (oxybutynin 15 mg/ 24 hr oral tablet, extended release) 1 tab(s) by mouth Once a day (in the evening) Unchanged propranolol (propranolol 20 mg oral tablet) 0.5 tab(s) by mouth Two (2) times a day Please take this list to your next doctor s visit. Bring all medications you take, including over the counter medications, herbals and other supplements with you to your doctor s visit. Patients and families are reminded to discard old lists and to update any records with all medication providers or retail pharmacies. Medication Leaflets aztreonam (injection) (HIPOLITO hopper) Azactam What is the most important information I should know about aztreonam? Follow all directions on your medicine label and package. Tell each of your healthcare providers about all your medical conditions, allergies, and all medicines you use. What is aztreonam? Aztreonam is an antibiotic that fights bacteria. Aztreonam is used to treat severe infections of the blood, urinary tract, lungs, skin, stomach, or female reproductive organs. Aztreonam may also be used for purposes not listed in this medication guide. What should I discuss with my healthcare provider before using aztreonam? You should not use aztreonam if you are allergic to it. Tell your doctor if you have ever had: kidney disease; liver disease; or any type of allergy. Especially tell your doctor if you are allergic to any other drugs, including: similar antibiotics such as ertapenem, imipenem, or meropenem; a cephalosporin antibiotic such as cefdinir, cefprozil, cephalexin , Ceftin, Cefzil, Omnicef, Keflex, and others; or a penicillin antibiotic such as amoxicillin, ampicillin, ticarcillin, Amoxil, Augmentin, Moxatag, and others. It is not known whether this medicine will harm an unborn baby. Tell your doctor if you are . It may not be safe to breast-feed while using this medicine. Ask your doctor about any risk. Aztreonam is not approved for use by anyone younger than 9 months old. How should I use aztreonam? Follow all directions on your prescription label and read all medication guides or instruction sheets. Use the medicine exactly as directed. Aztreonam is injected into a muscle, or as an infusion into a vein. A healthcare provider may teachyou how to properly use the medication by yourself. This medicine may need to be given for several weeks, depending on how severe your infection is. Read and carefully follow any Instructions for Use provided with your medicine. Do not use aztreonam if you don't understand all instructions for proper use. Ask your doctor or pharmacist if you havequestions. Prepare your injection only when you are ready to give it. Do not use if the medicine has changed colors, or has particles in it. Call your pharmacist for new medicine. Aztreonam must be mixed with a liquid (diluent) before using it. When using injections by yourself,be sure you understand how to properly mix and store the medicine. Use only the diluent that your doctor or pharmacist tells you to use. Store unmixed aztreonam at room temperature away from moisture and heat. You may store mixed medicine for up to 48 hours at room temperature, or up to 7 days in a refrigerator. Aztreonam is sometimes mixed with other antibiotics in the same solution. You may need to store this type of mixture differently. Follow all storage directions carefully. Aztreonam that is supplied as a frozen solution in a plastic container should be stored in a freezer. If possible, keep the freezer set at 4 degrees below 0 Fahrenheit or colder. Thaw the medicine either in a refrigerator or at room temperature. Do not heat the medicine. Aztreonam should be used within 2 weeks if thawed in a refrigerator, or used within 48 hours if thawed at room temperature. Aztreonam is usually given as long as needed until your infection has cleared, or until you have been symptom-free for at least 48 hours. Use this medicine for the full prescribed length of time, even if your symptoms quickly improve. Skipping doses can increase your risk of infection that is resistant to medication. Aztreonam will nottreat a viral infection such as the flu or a common cold. What happens if I miss a dose? Use the medicine as soon as you can, but skip the missed dose if it is almost time for your next dose. Do not use two doses at one time. What happens if I overdose? Seek emergency medical attention or call the Poison Help line at . What should I avoid while using aztreonam? Antibiotic medicines can cause diarrhea, which may be a sign of a new infection. If you have diarrhea that is watery or bloody, call your doctor before using anti-diarrhea medicine. What are the possible side effects of aztreonam? Get emergency medical help if you have signs of an allergic reaction (hives, difficult breathing, swelling in your face or throat) or a severe skin reaction (fever, sore throat, burning eyes, skin pain, red or purple skin rash with blistering and peeling). Call your doctor at once if you have: severe stomach pain, diarrhea that is watery or bloody; wheezing, chest pain; easy bruising or bleeding; a seizure; or liver problems--loss of appetite, stomach pain (upper right side), dark urine, vince-colored stools,jaundice (yellowing of the skin or eyes). Common side effects may include: nausea, vomiting, diarrhea; rash; vaginal itching or discharge; or pain, bruising, swelling, or irritation where the medicine was injected. This is not a complete list of side effects and others may occur. Call your doctor for medical advice about side effects. You may report side effects to FDA at 2-930-WPU-6169. What other drugs will affect aztreonam? Other drugs may affect aztreonam, including prescription and pdnw-jip-yossjme medicines, vitamins, and herbal products. Tell your doctor about all your current medicines and any medicine you start orstop using. Where can I get more information? Your doctor or pharmacist can provide more information about aztreonam. Remember, keep this and all other medicines out of the reach of children, never share your medicines with others, and use this medication only for the indication prescribed. Every effort has been made to ensure that the information provided by [employer]. ('[employer]') is accurate, up-to-date, and complete, but no guarantee is made to that effect. Drug information contained herein may be time sensitive. [employer] information has been compiled for use by healthcare practitioners and consumers in the [place] and therefore [employer] does not warrant that uses outside of the [place] are appropriate, unless specifically indicated otherwise. [facility] drug information does not endorse drugs, diagnose patients or recommend therapy. [employer] drug information isan informational resource designed to assist licensed healthcare practitioners in caring for their p atients and/or to serve consumers viewing this service as a supplement to, and not a substitute for, the expertise, skill, knowledge and judgment of healthcare practitioners. The absence of a warningfor a given drug or drug combination in no way should be construed to indicate that the drug or drug combination is safe, effective or appropriate for any given patient. [employer] does not assume any responsibility for any aspect of healthcare administered with the aid of information [employer] provides. The information contained herein is not intended to cover all possible uses, directions, precautions, warnings, drug interactions, allergic reactions, or adverse effects. If you have questions about the drugs you are taking, check with your doctor, nurse or pharmacist. Copyright 5226-1452 [employer]. Version: 8.01. Revision Date: 01/03/2023. Education Materials Urinary Tract Infection, Adult A urinary tract infection (UTI) is an infection of any part of the urinary tract. The urinary tractincludes: The kidneys. The ureters. The bladder. The urethra. These organs make, store, and get rid of pee (urine) in the body. What are the causes? This is caused by germs (bacteria) in your genital area. These germs grow and cause swelling (inflammation) of your urinary tract. What increases the risk? You are more likely to develop this condition if: You have a small, thin tube (catheter) to drain pee. You cannot control when you pee or poop (incontinence). You are female, and: ? You use these methods to prevent : ? A medicine that kills sperm (spermicide). ? A device that blocks sperm (diaphragm). ? You have low levels of a female hormone (estrogen). ? You are . You have genes that add to your risk. You are sexually active. You take antibiotic medicines. You have trouble peeing because of: ? A prostate that is bigger than normal, if you are male. ? A blockage in the part of your body that drains pee from the bladder (urethra). ? A kidney stone. ? A nerve condition that affects your bladder (neurogenic bladder). ? Not getting enough to drink. ? Not peeing often enough. You have other conditions, such as: ? Diabetes. ? A weak disease-fighting system (immune system). ? Sickle cell disease. ? Gout. ? Injury of the spine. What are the signs or symptoms? Symptoms of this condition include: Needing to pee right away (urgently). Peeing often. Peeing small amounts often. Pain or burning when peeing. Blood in the pee. Pee that smells bad or not like normal. Trouble peeing. Pee that is cloudy. Fluid coming from the vagina, if you are female. Pain in the belly or lower back. Other symptoms include: Throwing up (vomiting). No urge to eat. Feeling mixed up (confused). Being tired and grouchy (irritable). A fever. Watery poop (diarrhea). How is this treated? This condition may be treated with: Antibiotic medicine. Other medicines. Drinking enough water. Follow these instructions at home: Medicines Take ljyg-frn-vrjhpwo and prescription medicines only as told by your doctor. If you were prescribed an antibiotic medicine, take it as told by your doctor. Do not stop taking it even if you start to feel better. General instructions Make sure you: ? Pee until your bladder is empty. ? Do not hold pee for a long time. ? Empty your bladder after sex. ? Wipe from front to back after pooping if you are a female. Use each tissue one time when you wipe. Drink enough fluid to keep your pee pale yellow. Keep all follow-up visits as told by your doctor. This is important. Contact a doctor if: You do not get better after 1 2 days. Your symptoms go away and then come back. Get help right away if: You have very bad back pain. You have very bad pain in your lower belly. You have a fever. You are sick to your stomach (nauseous). You are throwing up. Summary A urinary tract infection (UTI) is an infection of any part of the urinary tract. This condition is caused by germs in your genital area. There are many risk factors for a UTI. These include having a small, thin tube to drain pee and notbeing able to control when you pee or poop. Treatment includes antibiotic medicines for germs. Drink enough fluid to keep your pee pale yellow. This information is not intended to replace advice given to you by your health care provider. Make sure you discuss any questions you have with your health care provider. Document Released: 10/31/2008 Document Revised: 05/02/2019 Document Reviewed: 11/22/2018 [employer] Patient Education 2020 [employer] Additional Information VACCINATE! IT SAVES LIVES! Members of the community who have not yet received the COVID-19 vaccine and would like to receive it can visit one of [facility] vaccine clinics. There are many vaccine clinic locations within the [facility]. For locations and available times, please visit [email or web address]/. It is important to note that some COVID mobile vaccine clinics are held outdoors and may be canceled in rainy or stormy conditions. To learn more about pediatric vaccinations (ages 5-11), we invite you to visit the [facility] webpage. [email or web address]/pages/[email or web address]-Wuufbnhcyou-Lwevrxbqnt-Htybz-Vdz stions.htmlTo learn more about the COVID-19 vaccine, we invite you to visit the CDC website for a list of frequently asked questions.https://www.cdc.gov/coronavirus/2019-ncov/vaccines/faq.html [employer] Patient Portal Access Instructions: Stay connected with your healthcare team and access your personal medical information anytime with the [employer] Patient Portal. Please follow the directions below to create your [employer] account: 1.Access the email account you provided upon registration to the hospital/physician office.2.Look for an invitation email from [facility].3.Open the email and access the invitation link: AcceptInvitation to [employer].4.Fill in the required hartley to create your account. To access your account, visit The [employer]One[employer]. Click the blue button labeled Access Patient Portal and then log in with the username and password that you created in the steps above. You will be able to view your test results, lab results, a summary of your visits, upcoming appointments and more. There is also a convenient messaging option where you can send secure messages to your p [employer]. In addition, you will have the ability to download any documents or summaries to your computer and/or send the information securely to a physician. Remember that your healthcare information is confidential, so carefully consider who you will allowto register on the [email or web address] Patient Portal for access to your information. You can also access the [employer] Patient Portal on the [employer]iowhere robert. Simply click on Patient Portal and then log into your account. If you would like to receive a full copy of your medical records, please contact the [facility] Medical Records Department by calling [phone], Monday through Monday between 8 a.m. and 4:30 p.m. HOW TO SAFELY DISPOSE OF PRESCRIPTION MEDICATIONS Please use one of the following methods to safely dispose of your unused medications. 1.Use a drug disposal kit: the drug disposal pouch allows you to safely discard your old and unuseddrugs. Ask your nurse to give you one when you are discharged.2.Visit a local take-back location: Many local pharmacies and police departments have programs that collect old and unwanted prescriptiondrugs. Call your local pharmacy or go to http://[employer]/5U6Gc9g to find one close to you.3.Make use of household items: Use cat litter or old coffee grounds to dispose medications if other options arenot available. Mix your drugs with these household products, seal them in an airtight container andthrow it into the garbage. Call [facility]: [phone] to be sure your drugs can be disposed of in this way. Some medicines may require a different approach.4.Never flush your medications down the toilet. IF YOU HAVE BEEN PRESCRIBED AN OPIOID FOR PAIN If you have been prescribed an opioid (such as hydrocodone, oxycodone or morphine), it is critical to understand the possible side effects and risks of opioid pain medications. Even when taken as directed, opioids can have several side effects including: Tolerance, meaning you might need to take more of a medication for the same pain relief. Nausea, vomiting and/or constipation. Sleepiness, dizziness, dry mouth, confusion, depression or itching. Physical dependence, meaning you have withdrawal symptoms when a medication is stopped, can develop within a few days. KNOW YOUR RESPONSIBILITIES It is important to know exactly how much and how often to take the opioid pain medications you are prescribed. Never take opioids in higher amounts or more often than prescribed. Do not combine opioids with alcohol or other drugs that cause drowsiness, such as benzodiazepines, also known as benzos, including diazepam and alprazolam, muscle relaxants or sleep aids. Never sell or share prescription opioids. This is illegal. Store opioids in a secure place and out of reach of others (including children, family, friends and visitors). The last page of this document has been signed and retained as a CHART COPY. Signatures Patient Education Materials Urinary Tract Infection, Adult, [facility] Medication Leaflets [facility] My discharge plan and instructions have been reviewed and explained to me and UVALDO To ANGELA Lunderstand my current condition and have read and understand these discharge instructions. I have received a written copy of the plan/instructions. If I have questions, I am aware that I should contact my doctor. 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09-30-2023 Nurse Progress note Pt and Mehdi educated on IM injection. instructed and successfully injected IM medication into pt's right thigh. Digitally Signed by Marbin Cooper RN on 02/25/2023 03:[address] [facility]09-29-2023 Note Date of Service 02/24/2023 Chief Complaint UTI Subjective 41-year-old female with past medical history significant for neurogenic bladder, type 2 diabetes mellitus, spina bifida, migraines, insomnia, depression, hyperlipidemia frequent UTIs, neurogenic bowel with colostomy bag. Patient [facility] to [facility] emergency department on 02/21/2023 with left lower leg pain and suprapubic tenderness. Recently completed course of antibiotics within the past month for UTI. Patient reported fever and chills. In the emergency department, chest x-ray revealed stable right midlung nodule. Otherwise, no acute radiographic findings. CTA of the chest revealed no evidence of pulmonary embolus. Multiple hypodense nodules within the right thyroid gland measuring up to 1.8cm. Further evaluation with nonemergent outpatient thyroid ultrasound may be beneficial. CT of the abdomen/pelvis revealed decompressed bladder with suprapubic catheter in place. Question mild bladder wall thic kening. Correlation with urinalysis is recommended to rule out an infectious process. Diverticulosis with no evidence of diverticulitis. White blood cell count 11.1. CBC otherwise unremarkable. BMP significant for glucose 214 and sodium 135. Lipase, troponin and BNP within normal limits. Urine and blood cultures obtained and pending. Urinalysis significant for small amount of blood, 100 protein, large leukocyte esterace, urine RBC 10-15 and urine WBC loaded. Patient was administered 1 liter of NS, 4 mg Zofran IV, 4 mg morphine IV, 500 mg meropenem IV and 100 mg doxycyline IV in the ED. The case was discussed with the ED physician who recommended admission due to complicated history of neurogenic bladder and suprapubic catheter with frequent urinary tract infections. Patient had a concern for cellulitis of left lower extremity. Patient is afebrile and hemodynamically stable. White blood cell trending down. Patient reports continued suprapubic tenderness. No fevers or chills. Denies any chest pain or dyspnea. Objective Vitals and Measurements T: 36.6 C (Oral) TMIN: 36.4 C (Oral) TMAX: 36.9 C (Oral) HR: 63(Apical) RR: 20 BP: 88/63 SpO2: 93% WT: 100.5 kg Intake and Output 7AM Yesterday to 7AM Today Intake and Output (Last 24 hours) Intake Oral Intake 2060.00 Output Urinary Catheter Output: 2625.00 Ostomy Stool Volume: 1.00 Total Summary Total Intake 2060.00 Total Output 2626.00 Fluid Balance -566.00 Physical Exam GEN: Appears chronically ill CHEST: Normal S1 and S2. Rhythm is regular. Clear to auscultation, without rales, rhonchi, wheezing. ABD: Positive bowel sounds x 4 quads. Soft, nondistended, nontender. CVA tenderness. Colostomy present. Suprapubic catheter present. EXT: No significant deformity or joint abnormality. Chronic edema BLE. Peripheral pulses intact. NEURO: Sensation grossly intact SKIN: Skin color normal PSYCH: The mental examination revealed the patient was alert and oriented x 4 Weight Current Weight Dosing Weight: 97.9 kg (02/22/23) Current Weight: 100.5 kg (02/24/23) Dosing Weight: 94.5 kg (02/22/23) Current Weight: 99.5 kg (02/23/23) Dosing Weight: 94.5 kg (02/22/23) Medications Medications (22) Active Scheduled: (11) duloxetine [address] capsule 30 mg 1 cap(s), Oral, qDay furosemide 20 mg tablet 20 mg 1 tab(s), Oral, qPM furosemide 40 mg tablet 40 mg 1 tab(s), Oral, qAM insulin glargine 100 units/ml solution 33 unit(s) 0.33 mL, Subcutaneous, qHS insulin lispro 100 units/mL Soln (3 mL) Give 0-15 units/dose, Subcutaneous, TIDAC insulin lispro 100 units/mL Soln (3 mL) 15 unit(s) 0.15 mL, Subcutaneous, TIDAC magnesium sulfate PMX 2 gram(s) 50 mL, IV Piggyback, Once meropenem 1,000 mg, IV Piggyback, q8h oxybutynin 5 mg ER tablet 15 mg 3 tab(s), Oral, qDay pantoprazole 20 mg EC tablet 40 mg 2 tab(s), Oral, BIDAC propranolol 20 mg tablet 10 mg 0.5 tab(s), Oral, BID Continuous: (0) PRN: (11) acetaminophen 325 mg Tablet 650 mg 2 tab(s), Oral, q4h acetaminophen 325 mg Tablet 650 mg 2 tab(s), Oral, q4h acetaminophen-OXYcodone 325 mg-5 mg Tablet 1 tab(s), Oral, q4h Al hydrox/Mg hydrox/simethicone 200-200-20 mg/5 mL Susp UD 15 mL, Oral, q4h albuterol - ipratropium 2.5 mg-0.5 mg/3 mL Inhal Michelle UD 3 mL, Inhalation, q4hRT calcium carbonate 500 mg Chewable 500 mg 1 tab(s), Chewed, TID cyclobenzaprine 10 mg Tablet 5 mg 0.5 tab(s), Oral, TID docusate sodium 100 mg Capsule 100 mg 1 cap(s), Oral, BID melatonin 3 mg tablet 6 mg 2 tab(s), Oral, qHS morphine 2 mg/mL 1 mL syringe 2 mg 1 mL, IV Push, q4h ondansetron 2 mg/ 1 mL 2 mL INJ 4 mg 2 mL, IV Push, q4h Lab Results 02/24 05:18 WBC: 12.2 H Hgb: 12.0 Hct: 36.1 L Platelet: 249 Neutrophil %: 48.2 Glucose Level: 114 H Sodium Level: 142 Potassium Level: 3.9 BUN: 19 H Creatinine Lvl (s): 1.09 H 02/23 07:45 WBC: 16.4 H Hgb: 11.7 L Hct: 35.4 L Platelet: 222 Neutrophil %: 70.3 Glucose Level: 202 H Sodium Level: 139 Potassium Level: 4.0 BUN: 23 H Creatinine Lvl (s): 1.10 H Assessment/Plan 1. Recurrent UTI (urinary tract infection) 2. Neurogenic bladder disorder 3. Type 2 diabetes mellitus Recurrent UTI- Pt has followed with ID in the past. Last culture in November 2022 grew pseudomonas. Pt has history of frequent UTI's. Continue Merrem 1G q8h until culture results are available. Urine culture growing Pseudomonas aeruginosa. She has been afebrile and hemodynamically stable. Urine remainscloudy with sediment. She still has suprapubic tenderness. Neurogenic bladder chronic catheter. She is awaiting urostomy placement but needs to get her A1c better controlled. Type 2 diabetes mellitus- Glucose goal 180 or less and avoid hypoglycemia. Corrective sliding scaleinsulin. ADA diet. Hypomagnesemia magnesium sulfate 2 g IV x1. DVT prophylaxis:SCD's Code Status:Full Code Plan of care discussed with patient. All questions answered. Patient verbalizes understanding is agreeable to plan of care. This dictation was performed using voice recognition software and may include grammatical and/or spelling errors. Time Spent 36 minutes was spent in [id number] time and coordination of care for this patient, including but not limited to personally gathering history, examining the patient, reviewing labs and images and records, counseling patient and/or family about diagnosis and potential workup if applicable, as detailed above as well as discussing the case with patient's interdisciplinary team where applicable. Digitally Signed by JERAD GONZALEZ on 02/24/2023 02:[address] [facility]09-28-2023 Note Date of Service 02/23/2023 Chief Complaint Concern for cellulitis and UTI Subjective 41-year-old female with past medical history significant for neurogenic bladder, type 2 diabetes mellitus, spina bifida, migraines, insomnia, depression, hyperlipidemia frequent UTIs, neurogenic bowel with colostomy bag. Patient presented to [facility] emergency department on 02/21/2023 with left lower leg pain and suprapubic tenderness. Recently completed course of antibiotics within the past month for UTI. Patient reported fever and chills. In the emergency department, chest x-ray revealed stable right midlung nodule. Otherwise, no acute radiographic findings. CTA of the chest revealed no evidence of pulmonary embolus. Multiple hypodense nodules within the right thyroid gland measuring up to 1.8cm. Further evaluation with nonemergent outpatient thyroid ultrasound may be beneficial. CT of the abdomen/pelvis revealed decompressed bladder with suprapubic catheter in place. Question mild bladder wall thic kening. Correlation with urinalysis is recommended to rule out an infectious process. Diverticulosis with no evidence of diverticulitis. White blood cell count 11.1. CBC otherwise unremarkable. BMP significant for glucose 214 and sodium 135. Lipase, troponin and BNP within normal limits. Urine and blood cultures obtained and pending. Urinalysis significant for small amount of blood, 100 protein, large leukocyte esterace, urine RBC 10-15 and urine WBC loaded. Patient was administered 1 liter of NS, 4 mg Zofran IV, 4 mg morphine IV, 500 mg meropenem IV and 100 mg doxycyline IV in the ED. The case was discussed with the ED physician who recommended admission due to complicated history of neurogenic bladder and suprapubic catheter with frequent urinary tract infections. Patient had a concern for cellulitis of left lower extremity. Patient is afebrile and hemodynamically stable. White blood cell count elevated compared to yesterday. Patient reports continued suprapubic tenderness. No fevers or chills. Denies any chest pain or dyspnea. Objective Vitals and Measurements T: 36.7 C (Oral) TMIN: 36.6 C (Oral) TMAX: 36.7 C (Oral) HR: 70(Monitored) RR: 16 BP: 125/73 SpO2: 94% WT: 99.5 kg Intake and Output 7AM Yesterday to 7AM Today Intake and Output (Last 24 hours) Intake Oral Intake 1560.00 Output Urinary Catheter Output: 2350.00 Total Summary Total Intake 1560.00 Total Output 2350.00 Fluid Balance -790.00 GEN: Appears chronically ill CHEST: Normal S1 and S2. Rhythm is regular. Clear to auscultation, without rales, rhonchi, wheezing. ABD: Positive bowel sounds x 4 quads. Soft, nondistended, nontender. CVA tenderness. Colostomy present. Suprapubic catheter present. EXT: No significant deformity or joint abnormality. No edema. Peripheral pulses intact. NEURO: Sensation grossly intact SKIN: Skin color normal PSYCH: The mental examination revealed the patient was alert and oriented x 4 Physical Exam Weight Current Weight Dosing Weight: 97.9 kg (02/22/23) Current Weight: 99.5 kg (02/23/23) Dosing Weight: 94.5 kg (02/22/23) Dosing Weight: 94.5 kg (02/22/23) Medications Medications (21) Active Scheduled: (10) duloxetine [address] capsule 30 mg 1 cap(s), Oral, qDay furosemide 20 mg tablet 20 mg 1 tab(s), Oral, qPM furosemide 40 mg tablet 40 mg 1 tab(s), Oral, qAM insulin glargine 100 units/ml solution 33 unit(s) 0.33 mL, Subcutaneous, qHS insulin lispro 100 units/mL Soln (3 mL) Give 0-15 units/dose, Subcutaneous, TIDAC insulin lispro 100 units/mL Soln (3 mL) 15 unit(s) 0.15 mL, Subcutaneous, TIDAC meropenem 1,000 mg, IV Piggyback, q8h oxybutynin 5 mg ER tablet 15 mg 3 tab(s), Oral, qDay pantoprazole 20 mg EC tablet 40 mg 2 tab(s), Oral, BIDAC propranolol 20 mg tablet 10 mg 0.5 tab(s), Oral, BID Continuous: (0) PRN: (11) acetaminophen 325 mg Tablet 650 mg 2 tab(s), Oral, q4h acetaminophen 325 mg Tablet 650 mg 2 tab(s), Oral, q4h acetaminophen-OXYcodone 325 mg-5 mg Tablet 1 tab(s), Oral, q4h Al hydrox/Mg hydrox/simethicone 200-200-20 mg/5 mL Susp UD 15 mL, Oral, q4h albuterol - ipratropium 2.5 mg-0.5 mg/3 mL Inhal Michelle UD 3 mL, Inhalation, q4hRT calcium carbonate 500 mg Chewable 500 mg 1 tab(s), Chewed, TID cyclobenzaprine 10 mg Tablet 5 mg 0.5 tab(s), Oral, TID docusate sodium 100 mg Capsule 100 mg 1 cap(s), Oral, BID melatonin 3 mg tablet 6 mg 2 tab(s), Oral, qHS morphine 2 mg/mL 1 mL syringe 2 mg 1 mL, IV Push, q4h ondansetron 2 mg/ 1 mL 2 mL INJ 4 mg 2 mL, IV Push, q4h Lab Results 02/23 07:45 WBC: 16.4 H Hgb: 11.7 L Hct: 35.4 L Platelet: 222 Neutrophil %: 70.3 Glucose Level: 202 H Sodium Level: 139 Potassium Level: 4.0 BUN: 23 H Creatinine Lvl (s): 1.10 H 02/22 05:23 WBC: 12.4 H Hgb: 12.5 Hct: 37.9 Platelet: 216 Neutrophil %: 89.8 H Glucose Level: 508 C Sodium Level: 132 L Potassium Level: 4.7 BUN: 18 Creatinine Lvl (s): 1.17 H Imaging Results and Diagnostics CT Angiography Chest w/ Contrast Result Date: February 21, 2023 Verified By: OC MAE MD CLINICAL STATEMENT: IMPRESSION: No evidence of pulmonary embolus. Multiple hypodense nodules within the right thyroid gland measuring up to 1.8cm. Further evaluation with nonemergent outpatient thyroid ultrasound may bebeneficial. I have personally reviewed the images of this examination, and agree with theresident's findings and interpretation. CT Abd/Pelvis w/ IV Contrast Only Result Date: February 21, 2023 Verified By: OC MAE MD CLINICAL STATEMENT: IMPRESSION: Decompressed bladder with suprapubic catheter in place. Question mildbladder wall thickening. Correlation with urinalysis is recommended to ruleout an infectious process. Diverticulosis with no evidence of diverticulitis. Stable peristomal and ventral wall hernias. Additional chronic and incidental findings as above. I have personally reviewed the images of this examination, and agreewith theresident's findings and interpretation. XR Chest 1 View Result Date: February 21, 2023 Verified By: XAVIER BRIONES MD CLINICAL STATEMENT: IMPRESSION: Stable right midlung nodule. Otherwise, no acute radiographic findings. I have personally reviewed the images of this examination and agree with theresident's findings and interpretation. Assessment/Plan 1. Recurrent UTI (urinary tract infection) 2. Neurogenic bladder disorder 3. Type 2 diabetes mellitus Recurrent UTI- Pt has followed with ID in the past. Last culture in November 2022 grew pseudomonas. Pt has history of frequent UTI's. Continue Merrem 1G q8h until culture results are available. White blood cell count 16,000. Patient states that she received steroids in the emergency department however it does not look as though this was documented. It was ordered initially. She did have a sharp rise in glucose levels and white blood cell count went from 12,000-16,000. She has been afebrile . Urine is cloudy with sediment. And hemodynamically stable Neurogenic bladder chronic catheter. She is awaiting urostomy placement but needs to get her A1c better controlled. Type 2 diabetes mellitus- Glucose goal 180 or less and avoid hypoglycemia. Corrective sliding scaleinsulin. ADA diet. DVT prophylaxis:SCD's Code Status:Full Code Plan of care discussed with patient. All questions answered. Patient verbalizes understanding is agreeable to plan of care. This dictation was performed using voice recognition software and may include grammatical and/or spelling errors. Time Spent 37 minutes Digitally Signed by JERAD GONZALEZ on 02/23/2023 05:[address] [facility]09-27-2023 Evaluation + Plan noteExtracted from: Title:History and Physical Author:ARIANNA RICO Date:02/22/23 1. Urinary tract infection Acute, new onset *Patient with neurogenic bladder and suprapubic catheter - with frequent UTIs. *Past urine cultures grow 2 species of pseudomonas susceptible to meropenem. *Urine culture from ED pending. *Continue meropenem 1000 mg PO q8 hours. 2. Lower leg pain-swelling Acute, questionable *Skin on anterior surface of lower extremity slightly pink but patient states ouch to light touch. She states typically has neuropathy but when she has cellulitis she has severe pain. *Patient just treated with doxycycline from 02/03-02/10. Question whether this is just residual from that episode. *Will discontinue doxycycline at this time. Monitor for erythema, increased warmth. 3. Type 2 diabetes mellitus Chronic, uncontrolled *Patient states last HgbA1c was 11. *Check HgbA1c in am. *Blood sugar checks before meals and at bedtime. *Cover with high dose sliding scale insulin. *Continue humalog 15 units TIDAC and lantus. *Continue diabetic diet. 4. Neurogenic bladder disorder Chronic *Maintain suprapubic catheter. 5. Spina bifida Chronic *Continue current home medications. DVT prophylaxis with SCDs. Code status: Full Code. Labs, diagnostic test and progress notes reviewed as noted in HPI. Plan of care discussed with patient. All questions answered. Patient verbalizes understanding and is agreeable with plan of care. This case was discussed with collaborating physician, Dr. Soledad Cosby. 75 minutes spent reviewing past diagnostic tests, reviewing lab results, vital sign trends, medical history, reviewing medications and ordering home medications, examining patient, reviewing past progress notes, labs, discussing plan of care with nursing, therapy and clinical social work aide, collaborating with physician, and documenting in chart. [facility] 09-27-2023 Note Date of Service 02/22/2023 Chief Complaint Patient complains of left-sided lower leg pain and swelling. Lower leg is red and warm to the touch. History of Present Illness Patient is a 42-year-old female, who follows with Dr. Will Brannon with a past medical history significant for type 2 diabetes, neurogenic bladder, spina bifida, and frequent urinary tract infections, presented to [facility] emergency department with the chief complaint of left-sided lower leg pain and flank pain. Patient states that she has a neurogenic bladder and gets urinary tract infections very quickly. Patient states she was on Bactrim and Macrobid about 3 weeks ago for a urinary tract infection and infection in her leg. These both improved with antibiotics but she developed new symptoms yesterday of left leg pain, abdominal pain, chest pain and dyspnea. She states that she has dyspnea and chest tightness when she has infections. Patient states she had an achy type pain in her waist and left flank that started yesterday morning. These symptoms were accompanied by chills so she decided to seek evaluation in the ED. Patient currently denies any fever, chills, cough, shortness of breath, chest pain, nausea or dysuria. Patient adds that she is trying to get [id number] down to 7 so she can have her bladder removed an ileal conduit placed. Her last A1c was 11. In the emergency department, chest x-ray revealed stable right midlung nodule. Otherwise, no acute radiographic findings. CTA of the chest revealed no evidence of pulmonary embolus. Multiple hypodense nodules within the right thyroid gland measuring up to 1.8cm. Further evaluation with nonemergent outpatient thyroid ultrasound may be beneficial. CT of the abdomen/pelvis revealed decompressed bladder with suprapubic catheter in place. Question mild bladder wall thickening. Correlation with urinalysis is recommended to rule out an infectious process. Diverticulosis with no evidence of diverticulitis. White blood cell count 11.1. CBC otherwise unremarkable. BMP significant for glucose 214 and s odium 135. Lipase, troponin and BNP within normal limits. Urine and blood cultures obtained and pending. Urinalysis significant for small amount of blood, 100 protein, large leukocyte esterace, urineRBC 10-15 and urine WBC loaded. Patient was administered 1 liter of NS, 4 mg Zofran IV, 4 mg morphine IV, 500 mg meropenem IV and 100 mg doxycyline IV in the ED. The case was discussed with the ED physician who recommended admission due to complicated history of neurogenic bladder and suprapubic catheter with frequent urinary tract infections as well as cellulitis of left lower extremity. She wastransferred to medical surgical unit for observation. We will continue meropenem 500 mg IV q6 hourspending results of urine culture. We will continue doxycycline 100 mg IV BID for cellulitis of the left lower extremity. Continue PO pain medication and antiemetics. Repeat CBC and BMP in the am. Patient seen and evaluated this morning while resting in bed. She denies any new problems or concerns. She continues to endorse pain across her waist and radiating into her left flank. Her left lowerextremity was examined and appeared to barely have a mild pink hue to the anterior surface. It may have been slightly more warm to touch than right lower extremity. Patient stated ouch with just a light touch to the LLE. We will continue antibiotics as ordered while waiting for urine and blood cultures to come back. All questions answered. Review of Systems Review of Systems: Reviewed in detail, including general health, HEENT, cardiovascular, respiratory, gastrointestinal, genitourinary, endocrine, musculoskeletal, neurologic, vascular, skin, and psychiatric. All are negative except for those listed in the History of Present Illness. Physical Exam Vitals and Measurements T: 36.6 C (Oral) TMIN: 36.6 C (Oral) TMAX: 37.3 C (Oral) HR: 85(Apical) RR: 20 BP: 104/58 SpO2: 93%HT: 155 cm WT: 97.9 kg BMI: 40.75 Weight Dosing Weight: 97.9 kg (02/22/23) Dosing Weight: 94.5 kg (02/22/23) Dosing Weight: 94.5 kg (02/22/23) General: No acute distress. Patient is alert and appropriate. Skin: No rash. Skin is warm, dry and intact. HEENT: Head is normocephalic, atraumatic. Pupils are equal, round and reactive. Neck: Supple. No lymphadenopathy, thyromegaly. Lungs: Bilaterally clear but diminished without crepitation or wheeze. Unlabored. Heart: Heart is regular rhythm, S1, S2. No murmurs, gallops or rubs. Abdomen: Abdomen is soft, tender to palpation in all quadrants. Bowels sounds present in all quadrants. Colostomy noted to left lower quadrant. Extremities: No clubbing, cyanosis, or edema. Peripheral pulses palpable. No calf tenderness. Anterior surface of left lower extremity mildly pink and only slightly warmer to touch than right lowerextremity. Painful to palpation. Neurological: Patient is awake and alert to person, place and time. Following simple commands, moving all extremities. Lab Results 02/22 05:23 WBC: 12.4 H Hgb: 12.5 Hct: 37.9 Platelet: 216 Neutrophil %: 89.8 H Glucose Level: 508 C Sodium Level: 132 L Potassium Level: 4.7 BUN: 18 Creatinine Lvl (s): 1.17 H 02/21 19:30 WBC: 11.1 H Hgb: 13.5 Hct: 40.8 Platelet: 219 Neutrophil %: 70.1 Glucose Level: 214 H Sodium Level: 135 L Potassium Level: 4.1 BUN: 13 Creatinine Lvl (s): 0.97 Imaging Results and Diagnostics CT Angiography Chest w/ Contrast Result Date: February 21, 2023 Verified By: CARMELITA FITZGERALD, OC Alvarenga CLINICAL STATEMENT: IMPRESSION: No evidence of pulmonary embolus. Multiple hypodense nodules within the right thyroid gland measuring up to 1.8cm. Further evaluation with nonemergent outpatient thyroid ultrasound may bebeneficial. I have personally reviewed the images of this examination, and agree with the resident's findings and interpretation. CT Abd/Pelvis w/ IV Contrast Only Result Date: February 21, 2023 Verified By: CARMELITA FITZGERALD, OC Alvarenga CLINICAL STATEMENT: IMPRESSION: Decompressed bladder with suprapubic catheter in place. Question mild bladder wall thickening. Correlation with urinalysis is recommended to rule out an infectious process. Diverticulosiswith no evidence of diverticulitis. Stable peristomal and ventral wall hernias. Additional chronic and incidental findings as above. I have personally reviewed the images of this examination, and agree with the resident's findings and interpretation. XR Chest 1 View Result Date: February 21, 2023 Verified By: XAVIER BRIONES MD CLINICAL STATEMENT: IMPRESSION: Stable right midlung nodule. Otherwise, no acute radiographic findings. I have personally reviewed the images of this examination and agree with the resident's findings and interpretation. Assessment/Plan 1. Urinary tract infection Acute, new onset *Patient with neurogenic bladder and suprapubic catheter - with frequent UTIs. *Past urine cultures grow 2 species of pseudomonas susceptible to meropenem. *Urine culture from ED pending. *Continue meropenem 1000 mg PO q8 hours. 2. Lower leg pain-swelling Acute, questionable *Skin on anterior surface of lower extremity slightly pink but patient states ouch to light touch. She states typically has neuropathy but when she has cellulitis she has severe pain. *Patient just treated with doxycycline from 02/03-02/10. Question whether this is just residual from that episode. *Will discontinue doxycycline at this time. Monitor for erythema, increased warmth. 3. Type 2 diabetes mellitus Chronic, uncontrolled *Patient states last HgbA1c was 11. *Check HgbA1c in am. *Blood sugar checks before meals and at bedtime. *Cover with high dose sliding scale insulin. *Continue humalog 15 units TIDAC and lantus. *Continue diabetic diet. 4. Neurogenic bladder disorder Chronic *Maintain suprapubic catheter. 5. Spina bifida Chronic *Continue current home medications. DVT prophylaxis with SCDs. Code status: Full Code. Labs, diagnostic test and progress notes reviewed as noted in HPI. Plan of care discussed with patient. All questions answered. Patient verbalizes understanding and is agreeable with plan of care. This case was discussed with collaborating physician, Dr. Soledad Cosby. 75 minutes spent reviewing past diagnostic tests, reviewing lab results, vital sign trends, medicalhistory, reviewing medications and ordering home medications, examining patient, reviewing past progress notes, labs, discussing plan of care with nursing, therapy and clinical social work aide, collaborating with physician, and documenting in chart. Problem List/Past Medical History Ongoing Diabetes Neurogenic bladder disorder Spina bifida Type 2 diabetes mellitus Urinary tract infection Historical No qualifying data Procedure/Surgical History Suprapubic catheter procedure Colostomy Cholecystectomy Umbilical hernia Back Medications Home Medications (8) Active Cymbalta 30 mg oral delayed release capsule 30 mg = 1 cap(s), Oral, qDay Fiasp FlexTouch 100 units/mL injectable solution See Instructions Lantus 33 unit(s), Subcutaneous, qHS Lasix 20 mg oral tablet 40 mg = 2 tab(s), Oral, qAM Lasix 20 mg oral tablet 20 mg = 1 tab(s), Oral, qPM lisinopril 2.5 mg oral tablet 2.5 mg = 1 tab(s), Oral, qDay oxybutynin 15 mg/24 hr oral tablet, extended release 15 mg = 1 tab(s), Oral, qPM propranolol 20 mg oral tablet 10 mg = 0.5 tab(s), Oral, BID Allergies Mushrooms (Throat swelling) Peanuts (Throat swelling) Rocephin (Hives) cephalosporins (Anaphylaxis, Hives) gabapentin (psychotic breakdown) Contrast dye (Vomiting) Latex (Hives) penicillin (Unknown) Social History Smoking Status - 02/26/2018 Never smoker Alcohol - Low Risk, 02/26/2018 Frequency: 1-2 times per year., 02/26/2018 Home/Environment Domestic Concerns: None. Living situation: Home/Independent. Safe place to go: Yes. Lives In: 1st floor bathroom. Current Home Treatments Blood Glucose monitoring., 04/24/2022 Nutrition/Health Type of diet: Diabetic. Appetite Good. Eating Difficulties None., 04/24/2022 Sexual Sexually active: Yes. Self described orientation: Straight or heterosexual., 04/24/2022 Substance Abuse - Denies Substance Abuse, 02/11/2017 Use: Never., 04/24/2022 Tobacco Nicotine Use: Never (less than 100 in lifetime)., 04/24/2022 Family History Cancer: Mother.Negative: Father, Sister, Brother, Daughter, Son and Grandparent. Diabetes: Mother. Stroke: Grandparent.Negative: Mother. Immunizations No qualifying data available. Code Status Code Status - Ordered -- 02/22/23 0:24:00 EDT, Full Code, Constant Order Digitally Signed by ARIANNA RICO on 02/22/2023 04:[address] [facility]09-26-2023 Note ORIGINAL EXAMINATION: CTA OF THE CHEST02/21/2023 11:13 pm HISTORY: ORDERING SYSTEM PROVIDED HISTORY: Reason for Exam: chest pain; suspect PE COMPARISON: CT abdomen pelvis 12/10/2022 TECHNIQUE: A single series was obtained during the early arterial/pulmonary arterial phase of contrast enhancement. Multiplanar and 3D reconstructed images were generated, reviewed and manipulated on a separate workstation. This exam was performed according to our departmental dose-optimization program which includes automated exposure control, adjustment of the mA and/or kVp according to patient size and/or use of iterative reconstruction technique where applicable. FINDINGS: There is a compression deformity of the T8 vertebral body, which can also be seen on prior. No acute osseous abnormalities. Scattered degenerative changes of the spine. Vascular: The aorta is normal caliber without evidence of aneurysm or stenosis. There is a conventional branching pattern of the great vessels without evidence of aneurysm or stenosis. The pulmonary arteries demonstrate no evidence of pulmonary embolus. There is no definite distention of the proximal pulmonary vasculature to suggest pulmonary hypertension. Visceral: Multiple hypodense nodules within the right thyroid gland measuring up to 1.8 cm. The trachea and mainstem bronchi are patent. Tiny calcified granuloma in the posterior right lower lobe. There is a 0.5 cm pleural based nodule in the posterior left lower lobe, which does not meet criteria for follow-up imaging at this time. No focal consolidation, pulmonary nodules, or suspicious masses are identified. No evidence of pleural effusion. No suspicious mediastinal, hilar, or axillary lymphadenopathy. The heart is normal in size. No evidence of pericardial effusion. Same day CT abdomen pelvis is also performed and reported separately. IMPRESSION: No evidence of pulmonary embolus. Multiple hypodense nodules within the right thyroid gland measuring up to 1.8 cm. Further evaluation with nonemergent outpatient thyroid ultrasound may be beneficial. I have personally reviewed the images of this examination, and agree with the resident's findings and interpretation. Interpreted by: Oc Mae MD Preliminary Report By: Barbara Rodríguez Electronically signed By Oc Mae MD Dictated Date: 02/21/2023 11:45:55 PM Prelim Date: 02/21/2023 11:57:16 PM Sign Date: 02/22/2023 12:56:56 AM Ordering Provider: [facility]09-26-2023 Note ORIGINAL EXAMINATION: CT OF THE ABDOMEN AND PELVIS WITH CONTRAST02/21/2023 11:10 pm TECHNIQUE: CT of the abdomen and pelvis was performed with the administration of intravenous contrast. Multiplanar reformatted images are provided for review. Automated exposure control, iterative reconstruction, and/or weight based adjustment of the mA/kV was utilized to reduce the radiation dose to as low as reasonably achievable. COMPARISON: CT abdomen pelvis 12/10/2022 HISTORY: ORDERING SYSTEM PROVIDED HISTORY: Reason for Exam: Right lower leg pain and redness, spina bifida, ostomy, history of bowel removal FINDINGS: No acute osseous abnormalities. Degenerative changes of the spine and lumbosacral spina bifida. The visualized lung bases are predominantly clear. The liver is unremarkable. The superior portion of the liver is not completely visualized on this image. Small calcified granuloma within the spleen. The pancreas and bilateral adrenal glands are unremarkable. The kidneys enhance symmetrically. 0.5 cm calculus is visualized in the right lower pole. Scattered areas of cortical scarring visualized in the right kidney, similar to prior. Subcentimeter hypodense lesion in the right kidney likely represents renal cysts. No evidence hydronephrosis or obstructive uropathy. The bladder is decompressed with a suprapubic catheter in place. Small amount of air within the bladder may relate to instrumentation. Question mild bladder wall thickening. No new adnexal masses. Pelvic phleboliths. Rectal stump with anastomotic suture is visualized. An ostomy is identified in the left abdomen with stable appearing peristomal hernia sac containing loops of colon. Diverticulosis with no evidence of diverticulitis. The stomach and small bowel is unremarkable. There is a small fat containing ventral wall hernia containing an air-filled tubular structure, likely the appendix with no surrounding inflammatory changes. The aorta is normal in course and caliber. No pathologically enlarged lymph nodes are identified. No free intraperitoneal air or fluid. IMPRESSION: Decompressed bladder with suprapubic catheter in place. Question mild bladder wall thickening. Correlation with urinalysis is recommended to rule out an infectious process. Diverticulosis with no evidence of diverticulitis. Stable peristomal and ventral wall hernias. Additional chronic and incidental findings as above. I have personally reviewed the images of this examination, and agree with the resident's findings and interpretation. Interpreted by: Oc Mae MD Preliminary Report By: Barbara Rodríguez Electronically signed By Oc Mae MD Dictated Date: 02/21/2023 11:25:16 PM Prelim Date: 02/21/2023 11:36:24 PM Sign Date: 02/22/2023 12:42:32 AM Ordering Provider: [facility]09-26-2023 Note ORIGINAL EXAMINATION: ONE XRAY VIEW OF THE CHEST02/21/2023 8:11 pm COMPARISON: Chest radiograph 02/15/2022 HISTORY: ORDERING SYSTEM PROVIDED HISTORY: Reason for Exam: chest pain FINDINGS: The cardiomediastinal silhouette is stable. There is a 1.5 cm nodular density in the right mid lung, which appears stable compared to prior and may represent a calcified nodule. No focal consolidation or pulmonary edema. Hazy density in the left lung base is favored to represent artifact from overlying soft tissue. No pneumothorax or large volume pleural effusion. No acute osseous abnormalities. IMPRESSION: Stable right midlung nodule. Otherwise, no acute radiographic findings. I have personally reviewed the images of this examination and agree with the resident's findings and interpretation. Interpreted by: Xavier Briones Preliminary Report By: Barbara Rodríguez Electronically signed By Xavier Briones Dictated Date: 02/21/2023 9:13:30 PM Prelim Date: 02/21/2023 9:15:48 PM Sign Date: 02/21/2023 9:34:18 PM Ordering Provider: [facility]09-26[facility]23 NoteSinus rhythm Left atrial enlargement Inferior infarct, age indeterminate [id number] BORDERLINE ECG Electronic Signature: LUDWIG MAYER DO 02/21/2023 19:53:05[facility] 09-07-2023 Discharge summary Author Dre Deal [facility] February 02, 2023 10:51pm Note Date/Time February 02, 2023 10:41pm [facility] Medical Records Department [address] [place] [address] Emergency Department Summary 02/02/23 MR#: [id number] Acct: [id number] Name: DEBBY BAILON Rep #:[id number] : 1980 42 From: Dre Deal MD PCP: Dr. Will Brannon MD Status:REG ER Location: ED HPI History of Present Illness Chief Complaint: Dizziness Detail of Chief Complaint: Lightheadedness, nausea vomiting and flank pain Informant: patient Onset/Context/Timing Onset: Days Context: Sudden Onset Timing: Continuous and Waxes and wanes Quality: HPI narrative Location: Generalized and flank, right side Current Severity: Mild Maximum Severity: Moderate Worsened by: Nothing specific Relieved by: Nothing Associated Symptoms Associated Symptoms: Nausea Narrative Narrative: Patient is a 42-year-old woman with history of spina bifida. She has a suprapubic catheter in place. She does have history of diabetes with noncompliance, diabetic polyneuropathy, cellulitis, recurrent urinary tract infection and pyelonephritis. Patient denies fever or chills. She complains of generalized weakness and malaise. She does report nausea without vomiting or diarrhea. Patient denies headache, visual, ocular auditory symptoms. Patient has cardiac or respiratory symptoms. Patient denies paresthesia or anesthesia. Patient does have a rash that is painful distal medial left thigh. Prior similar symptoms: Yes Recent Illness/Hospitalization: Yes PFSH PFSH Medical History Anxiety and depression Arthritis Manley's palsy Cellulitis of left lower extremity Chronic back pain Chronic nausea CKD (chronic kidney disease) Colostomy in place Constipation Delayed wound healing Depression Diabetes mellitus with diabetic polyneuropathy Diabetes mellitus, type II Diabetic foot infection Diabetic polyneuropathy Diabetic ulcer of left heel with fat layer exposed DJD (degenerative joint disease) of thoracic spine Dysthymic disorder Essential hypertension Hematochezia History of kidney stones History of migraine Hydronephrosis of right kidney Hyperglycemia Hyperlipidemia Infection of bladder catheter Insomnia Lipomeningocele Lower extremity edema Microalbuminuria Morbid obesity with BMI of 40.0-44.9, adult Neurogenic bladder Neurogenic bowel Non-compliance Non-smoker Noncompliance with diabetes treatment Normochromic normocytic anemia Open wound of left foot Panic attacks PSVT (paroxysmal supraventricular tachycardia) Sepsis Sepsis Spina bifida aperta of lumbar spine Thyroid cyst Type 2 diabetes mellitus with diabetic polyneuropathy Type 2 diabetes mellitus with foot ulcer Ulcer of left heel and midfoot with fat layer exposed Uninodular goiter Urinary tract infection Urinary tract infection UTI (urinary tract infection) UTI (urinary tract infection) Weakness Home Medications furosemide 20 mg tablet 20 mg PO 2200 fluid 08/28/18 [History Last Taken 01/18/22] furosemide 40 mg tablet 40 mg PO BREAKFAST fluid 04/05/19 [History Last Taken 01/19/22] oxybutynin chloride 15 mg tablet,extended release 24 hr 15 mg PO DAILY bladder 11/12/19 [History Last Taken 01/19/22] acetaminophen 500 mg tablet 1,000 mg PO TID PRN PRN Pain Or Fever 02/12/20 [History Last Taken 09/24/20 19:24] trazodone 100 mg tablet 100 mg PO QHS sleep 01/19/21 [History Last Taken Unknown] atorvastatin 80 mg tablet 80 mg PO DAILY cholesterol 01/29/21 [History Last Taken 01/19/22] pen needle, diabetic 32 gauge x 5/32 (BD Ultra-Fine Hope Pen Needle) #400 ea 03/05/21 [Rx Last Taken Unknown] phenazopyridine 200 mg tablet (Pyridium) 200 mg PO BID PRN PRN Pain 11/20/21 [History Last Taken Unknown] glimepiride 2 mg tablet 2 mg PO BID #180 tabs 01/21/22 [Rx Last Taken 01/19/22] lisinopril 5 mg tablet 2.5 mg (1/2 x 5 mg) PO DAILY #90 tabs 01/21/22 [Rx Last Taken 01/19/22] propranolol 10 mg tablet 5 mg (1/2 x 10 mg) PO BID heart #30 tabs 01/21/22 [Rx Last Taken 01/19/22] ondansetron 4 mg disintegrating tablet 4 mg PO Q6H PRN nausea and vomiting #7 tabs 03/22/22 [Rx Last Taken Unknown] insulin glargine 100 unit/mL (3 mL) subcutaneous pen (Lantus Solostar U-100 Insulin) 33 unit (0.33 mL) subcut QHS dm #30 mL 09/01/22 [Rx Last Taken Unknown] pen needle, diabetic 32 gauge x 5/32 (BD Ultra-Fine Hope Pen Needle) #350 ea 09/01/22 [Rx Last Taken Unknown] insulin lispro 100 unit/mL subcutaneous pen (Humalog KwikPen (U-100) Insulin) 15unit (0.15 mL) subcut TID #21 mL 09/02/22 [Rx Last Taken Unknown] duloxetine 30 mg capsule,delayed release 30 mg PO DAILY 01/04/23 [History Last Taken Unknown] doxycycline monohydrate 100 mg capsule 100 mg PO BID #14 CAPSULES 02/02/23 [Rx Last Taken Unknown] nitrofurantoin monohydrate/macrocrystals 100 mg capsule 100 mg PO Q12 #14 CAPSULES 02/02/23 [Rx Last Taken Unknown] Allergy/AdvReac Type Severity Reaction Status Date / Time ceftriaxone [From Rocephin] Allergy Hives Verified 02/02/23 17:56 mushroom Allergy Anaphylaxis Verified 02/02/23 17:56 peanut Allergy Anaphylaxis Verified 02/02/23 17:56 piperacillin [From Zosyn] Allergy NEEDS Verified 02/02/23 17:56 FOLLOW-UP tazobactam [From Zosyn] Allergy NEEDS Verified 02/02/23 17:56 FOLLOW-UP fentanyl AdvReac Low blood Verified 02/02/23 17:56 pressure gabapentin AdvReac Other Verified 02/02/23 17:56 Gadolinium-MRI Contrast AdvReac Vomiting Verified 02/02/23 17:56 Medium Latex, Natural Rubber AdvReac Rash Verified 02/02/23 17:56 vancomycin AdvReac Rash Verified 02/02/23 17:56 Family History Mother CVA (cerebral vascular accident) Thyroid disorder Diabetes Hypertension Heart disease Hyperlipidemia Myocardial infarction, Onset Age: 54 mother had diabetes Father Cancer skin Grandmother Cancer liver Other Arthritis Skin cancer Surgical History history insertion suprapubic catheter History of cholecystectomy History of dilation and curettage History of spinal surgery Hx of foot surgery Hx of ventral hernia repair S/P colostomy S/P thyroid biopsy (~11/06/19) Status post gastric surgery Social History household members: significant other Smoking Status: Never smoker alcohol intake: current substance use type: does not use ROS ROS ED Constitutional Constitutional ED: Reports chills, fever(s) and subjective; Denies sweats or weight loss Eyes Eyes: Denies blurry vision, change in vision or diplopia ENT ENT ED: Denies ear pain, rhinorrhea or sore throat Cardiovascular Cardiovascular: Denies chest pain or palpitations Respiratory/Chest Respiratory/Chest: Denies cough, dyspnea or dyspnea on exertion Gastrointestinal Gastrointestinal: Denies abdominal pain, constipation, diarrhea, melena or nausea Genitourinary Genitourinary ED: Reports other Details: Patient has a suprapubic catheter in place. Musculoskeletal Musculoskeletal: Reports arthralgias and back pain; Denies myalgias or neck pain Integumentary Reports rash Neurologic Neurologic: Reports weakness; Denies headache(s) or paresthesias Endocrine Endocrinology: Reports cold intolerance and heat intolerance Hematologic/Lymphatic Hematologic/Lymphatic: Reports systems reviewed and no addt'l complaints, exceptas documented EXAM Physical Exam Const Vital Signs: 02/02/23 17:56 02/02/23 19:32 02/02/23 22:10 Temperature 97.9 F 99.4 F H Temperature Source Temporal Oral Pulse Rate 113 H 88 Respiratory Rate 18 16 Respiratory Effort Normal Non-Labored Respiratory Pattern Normal Blood Pressure 109/80 125/80 H Blood Pressure Mean 89 95 Pulse Ox 98 98 Oxygen Delivery Method Room Air Room Air Positive well nourished, well developed, obese and unkempt Constitutional Narrative: Patient does not appear well. General Appearance ED: unkempt and well developed; Negative for cyanotic, diaphoretic, NAD or pallor Nutritional Appearance: obese HEENT Reports dry mucous membranes HEENT Narrative: Head is normocephalic and atraumatic. Ears are normal. TMs are normal. Posterior pharynx unremarkable. Uvula is midline. Mouth ED: Yes dry mucous membranes Mouth: dry mucous membranes Eyes PERRL and EOMs intact bilaterally General Eye ED: Negative for pale conjunctiva or scleral icterus Neck no lymphadenopathy, supple and no JVD Chest Wall inspection of chest normal and palpation of chest normal Resp normal respiratory effort and clear to auscultation bilaterally Cardio regular rhythm, S1 normal heart sound, S2 normal heart sound and no murmurs Rate: tachycardic GI normal to inspection, nondistended, normoactive bowel sounds, non-distended and no masses; Negative for non-tender or hepatosplenomegaly Palpation: tender other (Around the suprapubic catheter site) Back/Spine Back/Spine Narrative: Surgical scar noted lower back due to spinal bifida General Back: CVA tenderness right Thoracic Spine / Upper Back: Negative for thoracic spinal tenderness Lumbar Spine / Lower Back: Negative for lumbar spinal tenderness Extremity Negative for normal to inspection Extremity Narrative: There is a rash that is 3 x 7 cm distal medial left thigh. The rash is erythematous warm. There is no lymphangitis. There are shoddy left inguinal lymphadenopathy noted. There is no fluctuance. General Extremety ED: Negative for tenderness Neuro oriented x3 and CN's II-XII intact bilaterally Sensorium / Orientation: alert Psych mental status grossly normal Appearance: unkempt Skin No no rashes or lesions noted, no wounds and skin turgor normal General Skin Exam: elasticity normal; Negative for jaundice or pallor MDM MDM MDM Narrative Medical decision making narrative: Differential diagnosis includes complicated cystitis, pyelonephritis, there is evidence of cellulitis. Sepsis work-up was undertaken. Will obtain CBC to assess white count differential. CBC to assess renal function and determine if patient's antibiotic doses need to be adjusted. Was obtained. Suprapubic catheter was changed by me. 18 Algerian silicone Cook was placed without difficulty. Lab Data Attestation: I reviewed the patient's lab results. Lab results narrative: White count is elevated with slight shift. There is no bandemia. Patient's hadelevated blood counts in the past. H&H is normal. Indices are normal. Basic metabolic panel is remarkable glucose of 202 with a normal CO2 and anion gap. Patient does have history of problems with blood sugar due to noncompliance. UAis positive for protein, occult blood and leukoesterase. Negative for nitrites. Microscopic reveals 10-25 red blood cells and 50-100 WBCs with no bacteria. This is a good specimen. Culture was sent. Patient has been afebrile during her ER course. Labs: Laboratory Results - last 24 hr 02/02/23 02/02/23 19:25 21:50 WBC 17.2 H RBC 4.60 Hgb 13.3 Hct 40.8 MCV 88.7 MCH 28.9 MCHC 32.6 RDW Std Deviation 43.2 RDW Coeff of Claude 13.4 Plt Count 201 MPV 10.4 Immature Gran % (Auto) 0.600 Neut % (Auto) 81.9 H Lymph % (Auto) 10.0 L [place] % (Auto) 6.9 Eos % (Auto) 0.3 Baso % (Auto) 0.3 Absolute Neuts (auto) 14.1 H Absolute Lymphs (auto) 1.73 Nucleated RBC % 0 Sodium 132 L Potassium 4.0 Chloride 103 Carbon Dioxide 23.0 Anion Gap 6 BUN 14 Creatinine 1.01 Est GFR (MDRD) Af Amer 78 Est GFR (MDRD) Non-Af 64 BUN/Creatinine Ratio 13.9 Glucose 202 H Lactic Acid 1.2 Calcium 9.3 Urine Color Yellow Urine Clarity Cloudy Urine pH 6.0 Ur Specific Isabella 1.015 Urine Protein 100 H Urine Glucose (UA) Normal Urine Ketones Negative Urine Occult Blood 250 H Urine Nitrite Negative Urine Bilirubin Negative Urine Urobilinogen Normal Ur Leukocyte Esterase 500 H Urine RBC 10-25 SEEN Urine WBC 50-100 SEEN Ur Squamous Epith Cells 0-5 SEEN Urine Bacteria 0 SEEN Urine Mucus 0 SEEN Treatment and Re-Evaluation :: Was reevaluated. She has no vomiting. Patient was informed of results. Based on prior urine cultures and allergies and the fact that she has a cellulitis of her thigh she was placed on doxycycline which will cover strep and staph as wellas MRSA, which has grown on prior cultures. She is also had E. coli that is grown that was sensitive to nitrofurantoin. She received first dose of nitrofurantoin and doxycycline in the emergency department. She was discharged home with prescription for both. Procedures Other Procedures Procedure(s): Replacement of suprapubic catheter by physician Discharge Plan Triage Chief Complaint: Dizziness ED Provider: Dre Deal Dx/Rx/DC Orders Clinical Impression: Acute right flank pain, Cellulitis of left thigh, Type 1 diabetes mellitus withhyperglycemia, Pyuria, Leukocytosis, Spina bifida Instructions: ED Cellulitis Prescriptions: New doxycycline monohydrate 100 mg capsule 100 mg PO BID Qty: 14 0RF nitrofurantoin monohyd/m-cryst [nitrofurantoin monohyd/m-cryst] 100 mg capsule 100 mg PO Q12 Qty: 14 0RF No Action atorvastatin 80 mg tablet 80 mg PO DAILY Patient Comments: Take 1 tablet by mouth once daily. (DME) pen needle, diabetic [BD Ultra-Fine Hope Pen Needle] 32 gauge x 5/32 needle See Rx Instructions .ROUTE .MEDSUPPLY Qty: 400 6RF Rx Instructions: 4x/day insulin glargine [Lantus Solostar U-100 Insulin] 100 unit/mL (3 mL) insulin pen 33 unit SC QHS Qty: 30 1RF (DME) pen needle, diabetic [BD Ultra-Fine Hp[place] Pen Needle] 32 gauge x 5/32 needle See Rx Instructions .ROUTE .MEDSUPPLY Qty: 350 1RF Rx Instructions: 4 times daily furosemide 20 MG tablet 20 mg PO 2200 Hold Instructions: Resume on 11/24/21. Rx Instructions: 20 mg in the evening furosemide 40 MG tablet 40 mg PO BREAKFAST Hold Instructions: Resume on 11/24/21. oxybutynin chloride 15 mg tablet extended release 24hr 15 mg PO DAILY acetaminophen 500 MG tablet 1,000 mg PO TID PRN PRN (Reason: Pain Or Fever) trazodone 100 mg tablet 100 mg PO QHS Patient Comments: Take 1 tablet by mouth daily at bedtime. phenazopyridine [Pyridium] 200 MG tablet 200 mg PO BID PRN PRN (Reason: Pain) glimepiride 2 mg tablet 2 mg PO BID Qty: 180 3RF Rx Instructions: Hold if glucose less than 130 mg/dl propranolol 10 MG tablet 5 mg PO BID Qty: 30 0RF Rx Instructions: Hold for heart less than 60 or systolic blood pressure less than 100 mmHg. lisinopril 5 mg tablet 2.5 mg PO DAILY Qty: 90 3RF Rx Instructions: Hold for SBP less than 130 mmHg ondansetron 4 mg tablet,disintegrating 4 mg PO Q6H PRN (Reason: nausea and vomiting) Qty: 7 0RF duloxetine 30 mg capsule,delayed release(DR/EC) 30 mg PO DAILY Patient Comments: TAKE 1 CAPSULE BY MOUTH DAILY insulin lispro [Humalog KwikPen Insulin] 100 unit/mL insulin pen 15 unit subcut TID MDD 60 Qty: 21 5RF Rx Instructions: 180-220 +4 221-260 +6 261-300 8 >300 +10 Primary Care Provider: Will Brannon Referrals: Will Brannon MD [Primary Care Provider] - 3-5 Days Disposition Disposition: Home, Self Care What to do if you have Problems For any increased pain, shortness of breath, bleeding, nausea or vomiting, chestpain, or any unexpected problems, contact your Primary Care Provider. Call [facility] ([phone]) or report to the closest Emergency Room. Call 911 if necessary. 02/02/23 2251 <Electronically signed by Dre Deal MD> Cosigner Signature (if applicable): CC: Dr. Will Brannon MD ~ Signed [facility] Work Phone: [phone]) 156-145608-21-2023 History of Present illness Narrative* Farhat Sears MD - 01/16/2023 11:04 AM EDT HPI: Ms. Bailon is a 42 year old female with a history of HTN, HLD, DM2 c/b amputation of L great toe, chronic constipation s/p colostomy 09/2021, neurogenic bladder d/t spina bifida managed with monthly SPT exchanges since 08/2018 (18Fr - last done 01/06/23) c/b bladder stones s/p cystolithalopaxywith Dr. Seras 11/10/2020. Patient last seen by Dr. Sears on 06/2022. Cystoscopy at that time showed no evidence of stones, or lesions except mucosa edema from SPT. Previously recommended Cx/IC however, patient needed to heal from foot wound which has resolved. and have her BS under better control. History of constipation reports no issues with stools. Takes milk of magnesia intermittently not frequently. Last CONNIE 07/07/22 - normal left kidney, stable scattered renal cortical scarring in the right kidneywhich has been ongoing >1 decade. Recently had a CT abd/pelvis performed on 12/12/22 at OSH with evidence of mild left sided hydronephrosis with no obstructing stones. Last Scr 12/18/22 - 1.00, BG 206 Reports recent hospitalization at [facility] for chills, nausea, right flank pain and found to have UTI (urine culture 12/20/22 - >100K morganella morganii) and right non-obstructing stones which she was admitted for 8 days and then sent home on IV antibiotics for 6 days (finished 2 weeks ago). Reports she continues to have that right sided flank pain and bladder pain similar to prior UTIs that started about 4 days ago. SPT draining well - appears cloudy with debris. Patient showed fl glucose monitor log for december - sugars appear to all be >230-300s. PAST MEDICAL HISTORY Diagnosis Date Amputation of left great toe ([facility]) 06/25/2020 Anxiety Arthritis started age 19 Bilateral leg edema 07/16/2018 Cervical radiculopathy 05/02/2013 Chronic pain 02/12/[address] ([facility]) 09/30/2021 Constipation due to outlet dysfunction 10/07/2021 Cyst of ovary 11/28/2011 Diabetic eye exam ([facility]) 06/17/2016 Last done: 01/25/2017 Diabetic eye exam (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 Will monitor. Lipomeningocele, sacral level 09/12/2013 Lumbago 02/12/2015 Medicare annual wellness visit, subsequent 02/28/2018 last done: 02/28/2018 Migraine without aura and without status migrainosus, not intractable 10/18/2016 Miscarriage Mixed hyperlipidemia 02/28/2018 Muscle weakness of left lower extremity 08/07/2013 Neck pain 05/02/2013 Neurogenic bladder 02/12/2015 Neurogenic bowel 01/06/2016 Neuropathy 02/12/2015 post back surgery with secondary infection. Seeing Dr. Gregg Non-compliance 09/02/2022 Even stated in endocrine note from 09/01/2022 Numbness and tingling of left arm and leg 08/07/2013 Obesity, Class II, BMI 35-39.9 02/12/2015 Panic attacks Paroxysmal SVT (supraventricular tachycardia) ([facility]) 07/03/2017 Per 48 Hr event monitor 06/30/2017 Primary insomnia 02/17/2016 S/P hernia repair 12/11/2017 Spina bifida (HCC) 01/06/2016 Suprapubic catheter (HCC) Thyroid cyst 01/01/2018 Complex right sided cysts. US 12/2017, biopsy per Dr. Josue 01/23/2018 benign. Repeat US in a year. 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 nl AMPUTATION TOE,MT-P JT Left 02/11/2020 left big toe CATH, SUPRAPUBIC/CYSTOSCOPIC 11/07/2018 COLOSTOMY 10/01/2021 CYSTOSCOPY,REMV CALCULUS,COMPLIC 11/10/2020 DILATION & CURETTAGE DX&/THER NONOBSTETRIC Dilation & curettage HERNIA REPAIR W/MESH 2019 LEXISCAN STRESS TEST 07/20/2018 negative NUCLEAR STRESS LEXISCAN (CARD) 10/24/2018 negative PAST SURGICAL HISTORY OF 2010 cholecystectomy PAST SURGICAL HISTORY OF 09/2012 back surgery x2 PAST SURGICAL HISTORY OF Left 02/2014 foot x2 PAST SURGICAL HISTORY OF 07/2015 Bowles stoma PAST SURGICAL HISTORY OF 09/30/2021 Laparoscopic end colostomy REPAIR UMBILICAL HERNIA 12/11/2017 STRESS ECHO 12/09/2019 Negative STRESS TEST 07/18/2017 normal STRESS TEST 03/15/2018 negative Social History Tobacco Use Smoking status: Never Smokeless tobacco: Never Vaping Use Vaping Use: Never used Substance Use Topics Alcohol use: Not Currently Comment: social Drug use: Never Current Outpatient Medications on File Prior to Visit Medication Sig ertapenem (INVANZ) 1 g in NaCl 0.9% 100 mL Inject 100 mL intravenously every 24 hours for 10 days. Drainage Bag misc 1 Each every 2 weeks. DULoxetine (CYMBALTA) 30 mg capsule Take 30 mg by mouth once daily. loratadine (CLARITIN) 10 mg tablet Take 1 tablet by mouth once daily. atorvastatin (LIPITOR) 80 mg tablet Take 1 tablet by mouth once daily. furosemide (LASIX) 40 mg tablet Take 1 tablet by mouth once daily. Take in morning oxybutynin ER (DITROPAN XL) 15 mg 24 hr Extended Rel Tab Take 1 tablet by mouth once daily. propranolol (INDERAL) 20 mg tablet Take 1 tablet by mouth twice daily. traZODone (DESYREL) 100 mg tablet Take 1 tablet by mouth daily at bedtime. busPIRone (BUSPAR) 15 mg tablet Take 15 mg by mouth. acetaminophen (TYLENOL) 500 mg tablet Take 650 mg by mouth. magnesium hydroxide (MOM) 400 mg/5 mL suspension Take 30 mL by mouth every 6 hours. (Patient takingdifferently: Take 30 mL by mouth every 6 hours. Takes every six hours as needed) insulin glargine (LANTUS SOLOSTAR U-100 INSULIN) 100 unit/mL (3 mL) Inject 33 Units subcutaneously daily at bedtime. E11.65 insulin aspart, niacinamide, (FIASP FLEXTOUCH U-100 INSULIN) 100 unit/mL (3 mL) pen Inject 18 Unitssubcutaneously three times daily before meals. (Includes SS # 2 QAC -> Per Umm, Dr. Monson) MAX TDD = 55 UNITS / DAY. E11.65 glimepiride (AMARYL) 2 mg tablet Take 1 tablet by mouth twice daily with meals. Per Umm: Dr. Monson lisinopril (ZESTRIL, PRINIVIL) 5 mg tablet Take 1 tablet by mouth once daily. Per Dr. Ermias Salomon sodium chloride irrig solution (NACL 0.9% IRRIGATION BOTTLE) To use for catheter irrigation daily or as needed. Insulin [place], Disposable, (COMFORT EZ PEN NEEDLES) 29 gauge x 1/2 One needle with each lantus shot once a day. Dx: E13.29 on insulin PSEUDOEPHEDRINE HCL ORAL Take 30 mg by mouth as needed. ondansetron orally disintegrating (ZOFRAN ODT) 8 mg disintegrating tablet 8 mg as needed. fluticasone (FLONASE) 50 mcg/actuation nasal spray Use 2 Sprays in each nostril once daily. Rinse mouth after use. Insulin [place], Disposable, 32 gauge x 5/16 ndle Use once daily with Victoza COMPOUNDED PRESCRIPTION Stoma catheter tube. DX: Qo5.4 and K59.2 No current facility-administered medications on file prior to visit. ROS: Constitutional: negative Gastrointestinal: negative PHYSICAL EXAM: LMP 10/20/2022 (Approximate) GENERAL: Wnl nutrition, no deformities, healthy appearing ABDOMEN: Soft, nontender, nondistended, no masses. GENITOURINARY: MALE EXAM: Not indicated DATA/OR LABS TO BE REVIEWED: Creatinine (mg/dL) Date Value 12/26/2022 0.87 12/25/2022 0.86 12/24/2022 0.92 12/23/2022 0.87 12/22/2022 0.94 03/23/2021 0.60 10/30/2020 0.71 06/25/2020 0.69 03/09/2020 0.80 10/30/2019 0.82 A/P: 41 year old female with history of HTN, HLD, DM2 c/b amputation of L great toe, chronic constipation, neurogenic bladder d/t spina bifida managed with monthly SPT exchanges since 08/2018 (last done 07/05/22) presenting with complaints of difficulty with SPT exchanges due to resistance and crystallization of catheter tubing and increasing sediment in the urine. Symptoms similar to prior episode of bladder stones presenting for further evaluation of possible bladder stones. Recent CONNIE with no hydro.Patient continues to have uncontrolled diabetes with BG >230-300s Plan - Patient is not a surgical candidate until HbA1c is <7. - Repeat HbA1c today (last 10.2 on 08/2022) - Urine culture Nelli Lew MD Attending Note I evaluated the patient and personally participated in the peters components. I agree with the resident's findings and plan as documented and have discussed the case and management of the patient's carewith the resident. Patient with poorly controlled DM and Margarita in the setting of indwelling SPT. We have discussed c/ic, but this is ill-advised until her BG is better controlled. We don't have a recent A1C, but I suspect it's still poorly controlled looking at her device (>250 X several). Her UTI situation is unlikely to change in the setting of cotninued severe glucosuria. - repeat A1C today - return to endo. Will proceed w scheduling when A1C is <7 Farhat Sears MD Signature: Farhat Sears MD Date: 01/16/2023 Time: 12:38 PM documented in [facility] NoteHNO ID: [id number] Author: Donya Estrella MD Service: Hospital Medicine Author Type: Physician Type: Progress Notes Filed: 12/23/2022 3:19 AM Note Text: 42 years old with spinbifda Recurrent UTI On suprabupic cath UC showed morganella, Ertapenem started on 12/20 ID on baord, pending recs for Abx Urology on board, won't change The cook INPATIENT PROGRESS NOTE PRIMARY SERVICE: Internal Medicine Subjective CHIEF COMPLAINT: Pain INTERVAL HPI: She was seen and examined She states that she still has abd pain/flank pain. + nausea/vomiting +SOB - migraine - chest xray: Poor inspiratory effort with prominence of the lung markings. - KUB: No acute abnormalities Current Facility-Administered Medications Medication Dose Route Frequency acetaminophen 650 mg tab(s) (TYLENOL) 650 mg ORAL q 4 H PRN busPIRone (BUSPAR) tab(s) 15 mg 15 mg ORAL DAILY atorvastatin 80 mg tab(s) (LIPITOR) 80 mg ORAL DAILY insulin glargine 33 Units pen (long acting) 33 Units SUBCUTANEOUS AT BEDTIME fluticasone 50 mcg/actuation 2 [place] (FLONASE) 2 [place] EACH NOSTRIL DAILY traZODone 100 mg tab(s) (DESYREL) 100 mg ORAL AT BEDTIME DULoxetine 30 mg cap(s) (CYMBALTA) 30 mg ORAL DAILY enoxaparin 40 mg injection (LOVENOX) 40 mg SUBCUTANEOUS q 24 HR NaCl 0.9% iv flush bag 20 mL INTRAVENOUS PRN dextrose 40 % 15 g 15 g ORAL PRN Or glucagon 1 mg injection 1 mg INTRAMUSCULAR PRN Or dextrose 10% iv bolus 12.5 g INTRAVENOUS PRN HYDROmorphone (PF) 0.2 mg injection (DILAUDID) 0.2 mg INTRAVENOUS q 4 H PRN insulin lispro injection (rapid acting) (HumaLOG) SUBCUTANEOUS w MEALS NaCl 0.9% iv infusion 75 mL/hr INTRAVENOUS CONTINUOUS ondansetron (PF) 4 mg injection (ZOFRAN) 4 mg INTRAVENOUS q 8 H PRN ertapenem 1 g in NaCl 0.9% 100 mL Vial-Bag (INVanz) 1 g INTRAVENOUS q 24 H HYDROcodone 5 mg - acetaminophen 325 mg tablet (NORCO) 1 tablet ORAL q 6 H PRN Objective PHYSICAL EXAM: General: Patient is alert and oriented x3 and is in no acute respiratory distress HEENT: Normal cephalic, atraumatic, PERRLA, TM's normal, Nose clear, Mouth normal Lungs: Clear to auscultation, no wheezing, rales, or rhonchi. Cardiac: Regular rhythm and rate, S1-S2 within normal limits, no murmurs, gallops were appreciated, no rubs. Abdomen: Soft, +TTP diffusely. + colostomy bag. Extremities: + neuropathy. Musculoskeletal: normal MS exam, moves all extremities, DTR's normal BP 140/83 Pulse 59 Temp (Src) 98.3 (Oral) Resp 18 Ht 5' 2 (1.58m) Wt 230 lb 4.8 oz (104.5kg) SpO2 96% LMP 10/20/2022 BMI 42.11 kg/(m2). O2 Therapy: Room Air DATA: Diagnostic tests reviewed for today's visit: Most recent labs and imaging results. Assessment/Plan 42 year old female with history of Spina bifida discovered at age 32 complicated with neurogenic bladder s/p suprapubic cath 3 years ago and neuropathic bowel s/p colostomy 2021, DM complicated with neuropathy, Hx of recurrent UTI since age of 19, Depression/Anxiety, Thyroid disorder and HLD who presents with 1 day history of lower back and lower abdominal pain associated with change in urine to purulent with nasea but no fever, chills. She had recent UTI in October. She got change her cath monthly with last change was 12/02 this month. She went to [facility] but due to insurance issue she got transferred to [facility]. Her labs were remarkable for wbc of 14.9 with neutrophils 61%, UA showed wbc of 500 with negative nitrite +4 Bacteria. Patient is mostly having Complicated UTI on top of suprapubic cath. She is being managed with levofloxacin, UC came with many organism mainly morganella, will switch levo to Ertapenem, consult ID. Principal Problem: Complicated UTI (urinary tract infection) - CT scan of the abdomen and pelvis on 12/12/2021 at [facility] that show 2 small nonobstructive right lower pole stones and some very slight dilation of the urinary system to the level of the bladder with no stones on the left but no stones - Hx of recurrent UTI - UA suggestive for UTI - UC multiple organism mainly morganella , resistant to many abx but sens to erta -suprapubic CATH - UROLOGY on CONSULT S/p Levofloxacin 12/18- 12/20 On Ertapenm IV 1 GM Q24, ID- on consult.- plan on 10 more days of ertapenem On IV fluids propranolol was on hold given borderline BP Obesity, Class III, BMI >= 40 (POA: Unknown) #Spina bifida discovered at age 32 complicated with neurogenic bladder s/p suprapubic cath 3 years ago and neuropathic bowel s/p colostomy 2021 #DM complicated with neuropathy, Insuline with sliding scale - diet changed to diabetic #Depression/Anxiety Continue home Duloxetine 30 mg daily, Buspirone 15 mg daily, , Trazadone stop propranol giving borderline BP #HLD Atorvastatin 80 mg daily #DVT PPX: Continue Enoxaparin 40 mg daily Medication and Non-Pharmacologic VTE Prophylaxis/Anticoagulants Anticoagulant AND Antiplatelet Medications ( (more content not included)...[facility]07-26-2023 NoteHNO ID: [id number] Author: Donya Estrella MD Service: Hospital Medicine Author Type: Physician Type: Progress Notes Filed: 12/22/2022 1:08 AM Note Text: 42 years old with spinbifda Recurrent UTI On suprabupic cath UC showed morganella, Ertapenem started on 12/20 ID on baord, pending recs for Abx Urology on board, won't change The cook INPATIENT PROGRESS NOTE PRIMARY SERVICE: Internal Medicine Subjective CHIEF COMPLAINT: Pain INTERVAL HPI: She was seen and examined She states that she still has abd pain/flank pain. + nausea Current Facility-Administered Medications Medication Dose Route Frequency acetaminophen 650 mg tab(s) (TYLENOL) 650 mg ORAL q 4 H PRN busPIRone (BUSPAR) tab(s) 15 mg 15 mg ORAL DAILY atorvastatin 80 mg tab(s) (LIPITOR) 80 mg ORAL DAILY insulin glargine 33 Units pen (long acting) 33 Units SUBCUTANEOUS AT BEDTIME fluticasone 50 mcg/actuation 2 [place] (FLONASE) 2 [place] EACH NOSTRIL DAILY traZODone 100 mg tab(s) (DESYREL) 100 mg ORAL AT BEDTIME DULoxetine 30 mg cap(s) (CYMBALTA) 30 mg ORAL DAILY enoxaparin 40 mg injection (LOVENOX) 40 mg SUBCUTANEOUS q 24 HR NaCl 0.9% iv flush bag 20 mL INTRAVENOUS PRN dextrose 40 % 15 g 15 g ORAL PRN Or glucagon 1 mg injection 1 mg INTRAMUSCULAR PRN Or dextrose 10% iv bolus 12.5 g INTRAVENOUS PRN HYDROmorphone (PF) 0.2 mg injection (DILAUDID) 0.2 mg INTRAVENOUS q 4 H PRN insulin lispro injection (rapid acting) (HumaLOG) SUBCUTANEOUS w MEALS NaCl 0.9% iv infusion 75 mL/hr INTRAVENOUS CONTINUOUS ondansetron (PF) 4 mg injection (ZOFRAN) 4 mg INTRAVENOUS q 8 H PRN ertapenem 1 g in NaCl 0.9% 100 mL Vial-Bag (INVanz) 1 g INTRAVENOUS q 24 H Objective PHYSICAL EXAM: General: Patient is alert and oriented x3 and is in no acute respiratory distress HEENT: Normal cephalic, atraumatic, PERRLA, TM's normal, Nose clear, Mouth normal Lungs: Clear to auscultation, no wheezing, rales, or rhonchi. Cardiac: Regular rhythm and rate, S1-S2 within normal limits, no murmurs, gallops were appreciated, no rubs. Abdomen: Soft, +TTP diffusely. + colostomy bag. Extremities: + neuropathy. Musculoskeletal: normal MS exam, moves all extremities, DTR's normal BP 140/87 Pulse 64 Temp (Src) 98.8 (Oral) Resp 18 Ht 5' 2 (1.58m) Wt 230 lb 4.8 oz (104.5kg) SpO2 97% LMP 10/20/2022 BMI 42.11 kg/(m2). O2 Therapy: Room Air DATA: Diagnostic tests reviewed for today's visit: Most recent labs and imaging results. Assessment/Plan 42 year old female with history of Spina bifida discovered at age 32 complicated with neurogenic bladder s/p suprapubic cath 3 years ago and neuropathic bowel s/p colostomy 2021, DM complicated with neuropathy, Hx of recurrent UTI since age of 19, Depression/Anxiety, Thyroid disorder and HLD who presents with 1 day history of lower back and lower abdominal pain associated with change in urine to purulent with nasea but no fever, chills. She had recent UTI in October. She got change her cath monthly with last change was 12/02 this month. She went to [facility] but due to insurance issue she got transferred to [facility]. Her labs were remarkable for wbc of 14.9 with neutrophils 61%, UA showed wbc of 500 with negative nitrite +4 Bacteria. Patient is mostly having Complicated UTI on top of suprapubic cath. She is being managed with levofloxacin, UC came with many organism mainly morganella, will switch levo to Ertapenem, consult ID. Principal Problem: Complicated UTI (urinary tract infection) - CT scan of the abdomen and pelvis on 12/12/2021 at [facility] that show 2 small nonobstructive right lower pole stones and some very slight dilation of the urinary system to the level of the bladder with no stones on the left but no stones - Hx of recurrent UTI - UA suggestive for UTI - UC multiple organism mainly morganella , resistant to many abx but sens to erta -suprapubic CATH - UROLOGY on CONSULT S/p Levofloxacin 12/18- 12/20 On Ertapenm IV 1 GM Q24, ID- on consult. On IV fluids propranolol was on hold given borderline BP Obesity, Class III, BMI >= 40 (POA: Unknown) #Spina bifida discovered at age 32 complicated with neurogenic bladder s/p suprapubic cath 3 years ago and neuropathic bowel s/p colostomy 2021 #DM complicated with neuropathy, Insuline with sliding scale - diet changed to diabetic #Depression/Anxiety Continue home Duloxetine 30 mg daily, Buspirone 15 mg daily, , Trazadone stop propranol giving borderline BP #HLD Atorvastatin 80 mg daily #DVT PPX: Continue Enoxaparin 40 mg daily Medication and Non-Pharmacologic VTE Prophylaxis/Anticoagulants Anticoagulant AND Antiplatelet Medications (From admission, onward) Start Dose Route Frequency Last Action Ordered Stop 12/18/22 1330 enoxaparin 40 mg injection (LOVENOX) (Medical Risk Categories) 40 mg SUBCUTANEOUS EVERY 24 HOURS Ordered 12/18/22 1322 -- VTE Prophylaxis: VTE prophylaxis approp (more content not included)...[facility]07-25-2023 NoteHNO ID: [id number] Author: Miguel Angel Villar MD Service: ? 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 INPATIENT PROGRESS NOTE PRIMARY SERVICE: Internal Medicine Subjective CHIEF COMPLAINT: Pain INTERVAL HPI: She was seen and examined She is setting in the bed, comfrotable with no pain Not in distress Feeling better than yesterday Arnoldo stableP Current Facility-Administered Medications Medication Dose Route Frequency acetaminophen 650 mg tab(s) (TYLENOL) 650 mg ORAL q 4 H PRN busPIRone (BUSPAR) tab(s) 15 mg 15 mg ORAL DAILY atorvastatin 80 mg tab(s) (LIPITOR) 80 mg ORAL DAILY insulin glargine 33 Units pen (long acting) 33 Units SUBCUTANEOUS AT BEDTIME fluticasone 50 mcg/actuation 2 [place] (FLONASE) 2 [place] EACH NOSTRIL DAILY traZODone 100 mg tab(s) (DESYREL) 100 mg ORAL AT BEDTIME DULoxetine 30 mg cap(s) (CYMBALTA) 30 mg ORAL DAILY enoxaparin 40 mg injection (LOVENOX) 40 mg SUBCUTANEOUS q 24 HR NaCl 0.9% iv flush bag 20 mL INTRAVENOUS PRN dextrose 40 % 15 g 15 g ORAL PRN Or glucagon 1 mg injection 1 mg INTRAMUSCULAR PRN Or dextrose 10% iv bolus 12.5 g INTRAVENOUS PRN HYDROmorphone (PF) 0.2 mg injection (DILAUDID) 0.2 mg INTRAVENOUS q 4 H PRN insulin lispro injection (rapid acting) (HumaLOG) SUBCUTANEOUS w MEALS NaCl 0.9% iv infusion 75 mL/hr INTRAVENOUS CONTINUOUS ondansetron (PF) 4 mg injection (ZOFRAN) 4 mg INTRAVENOUS q 8 H PRN ertapenem 1 g in NaCl 0.9% 100 mL Vial-Bag (INVanz) 1 g INTRAVENOUS q 24 H Objective PHYSICAL EXAM: General: Patient is alert and oriented x3 and is in no acute respiratory distress HEENT: Normal cephalic, atraumatic, PERRLA, TM's normal, Nose clear, Mouth normal Neck: Negative hepatojugular reflux or jugular venous distention, negative carotid bruit. Lungs: Clear to auscultation, no wheezing, rales, or rhonchi. Cardiac: Regular rhythm and rate, S1-S2 within normal limits, no murmurs, gallops were appreciated, no rubs. Abdomen: Soft, nontender, nondistended, no HSM detected, bowel sounds are active. Extremities: [No edema, cyanosis, or clubbing. Skin: No rashes or breakdown. Musculoskeletal: normal MS exam, moves all extremities, DTR's normal Lymphatic: Negative cervical, supra-clavicular, groin lymphadenopathy. Neurologic: Cranial nerves from II-XII intact grossly, no focal deficits. Psychiatry: Normal affect. BP 99/57 Pulse 64 Temp (Src) 98.1 (Oral) Resp 17 Ht 5' 2 (1.58m) Wt 221 lb 4.8 oz (100.4kg) SpO2 97% LMP 10/20/2022 BMI 40.47 kg/(m2). O2 Therapy: Room Air DATA: Diagnostic tests reviewed for today's visit: Most recent labs and imaging results. Assessment/Plan 42 year old female with history of Spina bifida discovered at age 32 complicated with neurogenic bladder s/p suprapubic cath 3 years ago and neuropathic bowel s/p colostomy 2021, DM complicated with neuropathy, Hx of recurrent UTI since age of 19, Depression/Anxiety, Thyroid disorder and HLD who presents with 1 day history of lower back and lower abdominal pain associated with change in urine to purulent with nasea but no fever, chills. She had recent UTI in October. She got change her cath monthly with last change was 12/02 this month. She went to [facility] but due to insurance issue she got transferred to [facility]. Her labs were remarkable for wbc of 14.9 with neutrophils 61%, UA showed wbc of 500 with negative nitrite +4 Bacteria. Patient is mostly having Complicated UTI on top of suprapubic cath. She is being managed with levofloxacin, UC came with many organism mainly morganella, will switch levo to Ertapenem, consult ID. Principal Problem: Complicated UTI (urinary tract infection) (POA: Yes) Assessment AND Plan: Hx of recurrent UTI UA suggestive for UTI UC multiple organism mainly morganella , resistant to many abx but sens to erta Has supraBUC CATH, PENDING UROLOGY CONSULT Will DC Levofloxacin 12/18- 12/20 Will start Ertapenm IV 1 GM Q24,consult ID Will start IV fluid today and hold propranolol giving borderline BP Active Problems: Obesity, Class III, BMI >= 40 (POA: Unknown) Assessment AND Plan: stable #Spina bifida discovered at age 32 complicated with neurogenic bladder s/p suprapubic cath 3 years ago and neuropathic bowel s/p colostomy 2021 Stable now #DM complicated with neuropathy, Insuline with sliding scale #Depression/Anxiety Continue home Duloxetine 30 mg daily, Buspirone 15 mg daily, , Trazadone stop propranol giving borderline BP #HLD Atorvastatin 80 mg daily #DVT PPX: Continue Enoxaprine 40 mg daily Resolved Problems: * No resolved hospital problems. * Medication and Non-Pharmacologic VTE Prophylaxis/Anticoagulants Anticoagulant AND Antip (more content not included)...[facility] 12-19-2022 NoteHNO ID: [id number] Author: Miguel Angel Villar MD Service: ? Author Type: Physician Type: Progress Notes Filed: 12/19/2022 9:37 AM Note Text: INPATIENT PROGRESS NOTE SERVICE DATE: 12/19/2022 PRIMARY SERVICE: Internal Medicine Subjective CHIEF COMPLAINT: Pain INTERVAL HPI: She was seen and examined She is setting in the bed, comfrotable with minimal pain Not in distress Feeling better than yesterday Urine looks more clear Vitals showed BP of 99/38, will give IV fluid, hold propranol giving borderline BP Current Facility-Administered Medications Medication Dose Route Frequency acetaminophen 650 mg tab(s) (TYLENOL) 650 mg ORAL q 4 H PRN busPIRone (BUSPAR) tab(s) 15 mg 15 mg ORAL DAILY atorvastatin 80 mg tab(s) (LIPITOR) 80 mg ORAL DAILY propranolol 20 mg tab(s) (INDERAL) 20 mg ORAL BID insulin glargine 33 Units pen (long acting) 33 Units SUBCUTANEOUS AT BEDTIME fluticasone 50 mcg/actuation 2 [place] (FLONASE) 2 [place] EACH NOSTRIL DAILY traZODone 100 mg tab(s) (DESYREL) 100 mg ORAL AT BEDTIME DULoxetine 30 mg cap(s) (CYMBALTA) 30 mg ORAL DAILY enoxaparin 40 mg injection (LOVENOX) 40 mg SUBCUTANEOUS q 24 HR NaCl 0.9% iv flush bag 20 mL INTRAVENOUS PRN dextrose 40 % 15 g 15 g ORAL PRN Or glucagon 1 mg injection 1 mg INTRAMUSCULAR PRN Or dextrose 10% iv bolus 12.5 g INTRAVENOUS PRN levoFLOXacin iv piggyback 500 mg in D5W 100 mL (LEVAQUIN) 500 mg INTRAVENOUS DAILY HYDROmorphone (PF) 0.2 mg injection (DILAUDID) 0.2 mg INTRAVENOUS q 4 H PRN insulin lispro injection (rapid acting) (HumaLOG) SUBCUTANEOUS w MEALS NaCl 0.9% iv infusion 75 mL/hr INTRAVENOUS CONTINUOUS Objective PHYSICAL EXAM: General: Patient is alert and oriented x3 and is in no acute respiratory distress HEENT: Normal cephalic, atraumatic, PERRLA, TM's normal, Nose clear, Mouth normal Neck: Negative hepatojugular reflux or jugular venous distention, negative carotid bruit. Lungs: Clear to auscultation, no wheezing, rales, or rhonchi. Cardiac: Regular rhythm and rate, S1-S2 within normal limits, no murmurs, gallops were appreciated, no rubs. Abdomen: Soft, nontender, nondistended, no HSM detected, bowel sounds are active. Extremities: [No edema, cyanosis, or clubbing. Skin: No rashes or breakdown. Musculoskeletal: normal MS exam, moves all extremities, DTR's normal Lymphatic: Negative cervical, supra-clavicular, groin lymphadenopathy. Neurologic: Cranial nerves from II-XII intact grossly, no focal deficits. Psychiatry: Normal affect. BP 99/38 Pulse 62 Temp (Src) 97.7 (Oral) Resp 14 Ht 5' 2 (1.58m) Wt 219 lb (99.3kg) SpO2 96% LMP 10/20/2022 BMI 40.05 kg/(m2). O2 Therapy: Room Air DATA: Diagnostic tests reviewed for today's visit: Most recent labs and imaging results. Assessment/Plan 42 year old female with history of Spina bifida discovered at age 32 complicated with neurogenic bladder s/p suprapubic cath 3 years ago and neuropathic bowel s/p colostomy 2021, DM complicated with neuropathy, Hx of recurrent UTI since age of 19, Depression/Anxiety, Thyroid disorder and HLD who presents with 1 day history of lower back and lower abdominal pain associated with change in urine to purulent with nasea but no fever, chills. She had recent UTI in October. She got change her cath monthly with last change was 12/02 this month. She went to [facility] but due to insurance issue she got transferred to [facility]. Her labs were remarkable for wbc of 14.9 with neutrophils 61%, UA showed wbc of 500 with negative nitrite +4 Bacteria. Patient is mostly having Complicated UTI on top of suprapubic cath. She is being managed with levofloxacin, pending UC/BC/urology consult Principal Problem: Complicated UTI (urinary tract infection) (POA: Yes) Assessment AND Plan: Hx of recurrent UTI UA suggestive for UTI Pending UC Has supraBUC CATH, PENDING UROLOGY CONSULT Will continue Levofloxacin 12/18- Will start IV fluid today and hold propranolol giving borderline BP Active Problems: Obesity, Class III, BMI >= 40 (POA: Unknown) Assessment AND Plan: stable #Spina bifida discovered at age 32 complicated with neurogenic bladder s/p suprapubic cath 3 years ago and neuropathic bowel s/p colostomy 2021 Stable now #DM complicated with neuropathy, Insuline with sliding scale #Depression/Anxiety Continue home Duloxetine 30 mg daily, Buspirone 15 mg daily, , Trazadone will stop propranol giving borderline BP #HLD Atorvastatin 80 mg daily #DVT PPX: Continue Enoxaprine 40 mg daily Resolved Problems: * No resolved hospital problems. * Medication and Non-Pharmacologic VTE Prophylaxis/Anticoagulants Anticoagulant AND Antiplatelet Medications (From admission, onward) Start Dose Route Frequency Last Action Ordered Stop 12/18/22 1330 enoxaparin 40 mg injection (LOVENOX) (Medical Risk Categories) 40 mg SUBCUTANEOUS EVERY 24 HOURS Ordered 12/18/22 1322 -- VTE Prophylaxis: V (more content not included)...[facility]07-19-2023 History of Present illness Narrative* Nubia Mccullough LPN - 12/14/2022 8:33 AM EDT Scan on 12/12/2022 7:41 PM by Provider, Melanie, [place]: [facility] Discharge summary Author Dre Deal [facility] December 12, 2022 9:20pm Note Date/Time December 12, 2022 9:18 pm [facility] Medical Records Department [address] [place] [address] Emergency Department Summary 12/12/22 MR#: [id number] Acct: [id number] Name: DEBBY BAILON Rep #:[id number] : 1980 42 From: Dre Deal MD PCP: Dr. Will Brannon MD Status:REG ER Location: ED HPI History of Present Illness Chief Complaint: Flank Pain Informant: patient and spouse/S.O. Onset/Context/Timing Onset: Today Context: Sudden Onset Timing: Intermittent (Initially intermittent now constant) Quality: Left flank pain Location: Left flank Current Severity: Severe Maximum Severity: Severe Worsened by: Uncertain Relieved by: Nothing Associated Symptoms Associated Symptoms: Nausea Narrative Narrative: Patient is a 42-year-old woman who presents with left flank pain that radiates anterior. Initially was intermittent. Now it is constant. Severe. There is acomponent with movement. There is also complaint of nausea. She has a suprapubic catheter. She has not been in the emergency department for flank pain for some time. She denies fever, chills night sweats. She denies any other complaints. There is no history of trauma. She states she contacted her urologist at the [facility]. There was no response and reason she presented to the emergency department. Prior similar symptoms: Yes Recent Illness/Hospitalization: No PFSH PFSH Medical History Anxiety and depression Arthritis Manley's palsy Cellulitis of left lower extremity Chronic back pain Chronic nausea CKD (chronic kidney disease) Colostomy in place Constipation Delayed wound healing Depression Diabetes mellitus with diabetic polyneuropathy Diabetes mellitus, type II Diabetic foot infection Diabetic polyneuropathy Diabetic ulcer of left heel with fat layer exposed DJD (degenerative joint disease) of thoracic spine Dysthymic disorder Essential hypertension Hematochezia History of kidney stones History of migraine Hydronephrosis of right kidney Hyperglycemia Hyperlipidemia Infection of bladder catheter Insomnia Lipomeningocele Lower extremity edema Microalbuminuria Morbid obesity with BMI of 40.0-44.9, adult Neurogenic bladder Neurogenic bowel Non-compliance Non-smoker Noncompliance with diabetes treatment Normochromic normocytic anemia Open wound of left foot Panic attacks PSVT (paroxysmal supraventricular tachycardia) Sepsis Sepsis Spina bifida aperta of lumbar spine Thyroid cyst Type 2 diabetes mellitus with diabetic polyneuropathy Type 2 diabetes mellitus with foot ulcer Ulcer of left heel and midfoot with fat layer exposed Uninodular goiter Urinary tract infection Urinary tract infection UTI (urinary tract infection) UTI (urinary tract infection) Weakness Home Medications furosemide 20 mg tablet 20 mg PO 2200 fluid 08/28/18 [History Last Taken 01/18/22] furosemide 40 mg tablet 40 mg PO BREAKFAST fluid 04/05/19 [History Last Taken 01/19/22] oxybutynin chloride 15 mg tablet,extended release 24 hr 15 mg PO DAILY bladder 11/12/19 [History Last Taken 01/19/22] acetaminophen 500 mg tablet 1,000 mg PO TID PRN PRN Pain Or Fever 02/12/20 [History Last Taken 09/24/20 19:24] trazodone 100 mg tablet 100 mg PO QHS sleep 01/19/21 [History Last Taken Unknown] atorvastatin 80 mg tablet 80 mg PO DAILY cholesterol 01/29/21 [History Last Taken 01/19/22] pen needle, diabetic 32 gauge x 5/32 (BD Ultra-Fine Hope Pen Needle) #400 ea 03/05/21 [Rx Last Taken Unknown] phenazopyridine 200 mg tablet (Pyridium) 200 mg PO BID PRN PRN Pain 11/20/21 [History Last Taken Unknown] glimepiride 2 mg tablet 2 mg PO BID #180 tabs 01/21/22 [Rx Last Taken 01/19/22] lisinopril 5 mg tablet 2.5 mg (1/2 x 5 mg) PO DAILY #90 tabs 01/21/22 [Rx Last Taken 01/19/22] propranolol 10 mg tablet 5 mg (1/2 x 10 mg) PO BID heart #30 tabs 01/21/22 [Rx Last Taken 01/19/22] ondansetron 4 mg disintegrating tablet 4 mg PO Q6H PRN nausea and vomiting #7 tabs 03/22/22 [Rx Last Taken Unknown] enoxaparin 40 mg/0.4 mL subcutaneous syringe 40 mg (0.4 mL) subcut DAILY #12 mL 07/18/22 [Rx Last Taken Unknown] linezolid 600 mg tablet 600 mg PO Q12H #14 tabs 07/18/22 [Rx Last Taken Unknown] ciprofloxacin HCl 500 mg tablet (Cipro) 500 mg PO BID #20 tabs 08/16/22 [Rx Last Taken Unknown] sulfamethoxazole 800 mg-trimethoprim 160 mg tablet (Bactrim DS) 1 tab PO BID 7 days #14 tabs 08/19/22 [Rx Last Taken Unknown] insulin glargine 100 unit/mL (3 mL) subcutaneous pen (Lantus Solostar U-100 Insulin) 33 unit (0.33 mL) subcut QHS dm #30 mL 09/01/22 [Rx Last Taken Unknown] pen needle, diabetic 32 gauge x 5/32 (BD Ultra-Fine Hope Pen Needle) #350 ea 09/01/22 [Rx Last Taken Unknown] insulin lispro 100 unit/mL subcutaneous pen (Humalog KwikPen (U-100) Insulin) 15unit (0.15 mL) subcut TID #21 mL 09/02/22 [Rx Last Taken Unknown] oxycodone 5 mg tablet 5 mg PO Q6H PRN pain 3 days #10 tabs 10/06/22 [Rx Last Taken Unknown] ciprofloxacin HCl 500 mg tablet 500 mg PO BID #14 TABLETS 12/12/22 [Rx Last Taken Unknown] Allergy/AdvReac Type Severity Reaction Status Date / Time ceftriaxone [From Rocephin] Allergy Hives Verified 12/12/22 18:48 mushroom Allergy Anaphylaxis Verified 12/12/22 18:48 peanut Allergy Anaphylaxis Verified 12/12/22 18:48 piperacillin [From Zosyn] Allergy NEEDS Verified 12/12/22 18:48 FOLLOW-UP tazobactam [From Zosyn] Allergy NEEDS Verified 12/12/22 18:48 FOLLOW-UP fentanyl AdvReac Low blood Verified 12/12/22 18:48 pressure gabapentin AdvReac Other Verified 12/12/22 18:48 Gadolinium-MRI Contrast AdvReac Vomiting Verified 12/12/22 18:48 Medium Latex, Natural Rubber AdvReac Rash Verified 12/12/22 18:48 vancomycin AdvReac Rash Verified 12/12/22 18:48 Family History Mother CVA (cerebral vascular accident) Thyroid disorder Diabetes Hypertension Heart disease Hyperlipidemia Myocardial infarction, Onset Age: 54 mother had diabetes Father Cancer skin Grandmother Cancer liver Other Arthritis Skin cancer Surgical History history insertion suprapubic catheter History of cholecystectomy History of dilation and curettage History of spinal surgery Hx of foot surgery Hx of ventral hernia repair S/P colostomy S/P thyroid biopsy (~11/06/19) Status post gastric surgery Social History household members: significant other Smoking Status: Never smoker alcohol intake: current substance use type: does not use ROS ROS ED Constitutional Constitutional ED: Denies chills, fever(s), subjective, sweats or weight loss ENT ENT ED: Denies ear pain or rhinorrhea Cardiovascular Cardiovascular: Denies chest pain, palpitations or racing heartbeat Respiratory/Chest Respiratory/Chest: Denies cough or dyspnea Gastrointestinal Gastrointestinal: Reports abdominal pain and nausea; Denies constipation, diarrhea, melena or vomiting Genitourinary Genitourinary ED: Reports hematuria; Denies dysuria or urinary frequency Musculoskeletal Musculoskeletal: Reports back pain; Denies arthralgias, myalgias or neck pain Integumentary Denies rash Neurologic Neurologic: Denies headache(s), paresthesias or weakness Hematologic/Lymphatic Hematologic/Lymphatic: Reports systems reviewed and no addt'l complaints, exceptas documented EXAM Physical Exam Const Vital Signs: 12/12/22 18:46 Temperature 97.1 F L Temperature Source Temporal Pulse Rate 95 Respiratory Rate 22 H Blood Pressure 180/158 H Blood Pressure Mean 165 Pulse Ox 94 Oxygen Delivery Method Room Air Positive well nourished, well developed, obese and unkempt Constitutional Narrative: Patient appears uncomfortable. Patient has pain out of proportion to tactile stimulus. General Appearance ED: unkempt and well developed; Negative for cyanotic, diaphoretic or pallor Nutritional Appearance: obese HEENT Reports moist mucous membranes HEENT Narrative: Atraumatic normocephalic. Ears normal. Nares patent. Posterior pharynx is normal. Eyes PERRL and EOMs intact bilaterally General Eye ED: Negative for pale conjunctiva or scleral icterus Neck no lymphadenopathy, supple and no JVD Chest Wall inspection of chest normal and palpation of chest normal Resp normal respiratory effort and clear to auscultation bilaterally Cardio regular rate, regular rhythm, S1 normal heart sound, S2 normal heart sound and no murmurs GI normal to inspection, nondistended, normoactive bowel sounds, non-tender, non-distended and no masses; Negative for hepatosplenomegaly Back/Spine no CVA tenderness Back/Spine Narrative: Pain out of proportion to tactile stimulus left flank area. There is no rash noted to suggest herpes varicella-zoster. Thoracic Spine / Upper Back: Negative for thoracic spinal tenderness Lumbar Spine / Lower Back: Negative for lumbar spinal tenderness Extremity normal to inspection General Extremety ED: Negative for edema or tenderness General Extremity: Negative for edema Neuro oriented x3, CN's II-XII intact bilaterally and no sensory deficits noted Sensorium / Orientation: alert Psych Appearance: unkempt Mood & Affect: anxious Skin no rashes or lesions noted, no wounds and skin turgor normal General Skin Exam: Negative for jaundice or pallor MDM MDM MDM Narrative Medical decision making narrative: Patient presents with abrupt onset of left flank pain. She does have history ofkidney stones and ureteral stones. CT of the abdomen was obtained. Appropriateblood work was obtained to assess white count differential, renal function because she reports kidney disease she was treated initially with morphine and Zofran for her pain and nausea. She did not receive Toradol Lab Data Attestation: I reviewed the patient's lab results. Lab results narrative: White count is Elave aided with a normal differential. Basic metabolic panel isremarked for sodium of 131 otherwise normal. UA reveals nitrites leukoesterase glucose protein and blood. There is also 10-25 RBCs and 50-100 RBCs. There wassediment noted which was noted in the Cook tubing. There is also 2+ bacteria. Patient reports that her Cook was changed 1 to 2 weeks ago. We will send culture and place on antibiotics. She reports allergy to cephalosporin with hives. We will treat with ciprofloxacin. Labs: Laboratory Results - last 24 hr 12/12/22 19:11 WBC 15.0 H RBC 4.79 Hgb 13.9 Hct 42.6 MCV 88.9 MCH 29.0 MCHC 32.6 RDW Std Deviation 46.5 H RDW Coeff of Claude 14.4 Plt Count 189 MPV 11.6 Immature Gran % (Auto) 0.600 Neut % (Auto) 67.3 Lymph % (Auto) 21.6 [place] % (Auto) 8.2 Eos % (Auto) 1.6 Baso % (Auto) 0.7 Absolute Neuts (auto) 10.1 H Absolute Lymphs (auto) 3.24 Nucleated RBC % 0 Sodium 131 L Potassium TNP Chloride 103 Carbon Dioxide 21.0 Anion Gap 7 BUN 9 Creatinine 0.97 Estim Creat Clear Calc 57.59 Est GFR (MDRD) Af Amer 81 Est GFR (MDRD) Non-Af 67 BUN/Creatinine Ratio 9.3 L Glucose 282 H Calcium 10.1 Serum , Qual NEGATIVE Urine Color Yellow Urine Clarity Sl. Cloudy Urine pH 7.0 Ur Specific Isabella 1.010 Urine Protein 100 H Urine Glucose (UA) 1000 H Urine Ketones Negative Urine Occult Blood 250 H Urine Nitrite Positive H Urine Bilirubin Negative Urine Urobilinogen Normal Ur Leukocyte Esterase 500 H Urine RBC 10-25 SEEN Urine WBC 50-100 SEEN Ur Squamous Epith Cells 0-5 SEEN Amorphous Sediment 1+ PHOS Urine Bacteria 2+ Urine Mucus 0 SEEN Radiography Diagnostic Testing: Clinical Impression(s) from Imaging Studies Abdomen/Pelvis CT 12/12/22 19:05 IMPRESSION: 1. Mild left-sided hydroureter with no obstructing stone is identified. There is a nonobstructing stone in the right kidney which is stable. 2. Stable left-sided colostomy and suprapubic catheter in place. Electronically Signed: Dylan Reynoso MD at 19:36 EDT , CAT scan was reviewed by me and the interpretation by radiologist was read. Discharge Plan Triage Chief Complaint: Flank Pain ED Provider: Dre Deal Dx/Rx/DC Orders Clinical Impression: Acute left flank pain, Urinary tract infection, Leukocytosis Instructions: UTIs Understanding, ED Flank Pain, Uncertain Cause Prescriptions: New ciprofloxacin HCl [ciprofloxacin HCl] 500 mg tablet 500 mg PO BID Qty: 14 0RF No Action atorvastatin 80 mg tablet 80 mg PO DAILY Patient Comments: Take 1 tablet by mouth once daily. (DME) pen needle, diabetic [BD Ultra-Fine Hope Pen Needle] 32 gauge x 5/32 needle See Rx Instructions .ROUTE .MEDSUPPLY Qty: 400 6RF Rx Instructions: 4x/day insulin glargine [Lantus Solostar U-100 Insulin] 100 unit/mL (3 mL) insulin pen 33 unit SC QHS Qty: 30 1RF (DME) pen needle, diabetic [BD Ultra-Fine Hope Pen Needle] 32 gauge x 5/32 needle See Rx Instructions .ROUTE .MEDSUPPLY Qty: 350 1RF Rx Instructions: 4 times daily furosemide 20 MG tablet 20 mg PO 2200 Hold Instructions: Resume on 11/24/21. Rx Instructions: 20 mg in the evening furosemide 40 MG tablet 40 mg PO BREAKFAST Hold Instructions: Resume on 11/24/21. oxybutynin chloride 15 mg tablet extended release 24hr 15 mg PO DAILY acetaminophen 500 MG tablet 1,000 mg PO TID PRN PRN (Reason: Pain Or Fever) trazodone 100 mg tablet 100 mg PO QHS Patient Comments: Take 1 tablet by mouth daily at bedtime. phenazopyridine [Pyridium] 200 MG tablet 200 mg PO BID PRN PRN (Reason: Pain) glimepiride 2 mg tablet 2 mg PO BID Qty: 180 3RF Rx Instructions: Hold if glucose less than 130 mg/dl propranolol 10 MG tablet 5 mg PO BID Qty: 30 0RF Rx Instructions: Hold for heart less than 60 or systolic blood pressure less than 100 mmHg. lisinopril 5 mg tablet 2.5 mg PO DAILY Qty: 90 3RF Rx Instructions: Hold for SBP less than 130 mmHg ondansetron 4 mg tablet,disintegrating 4 mg PO Q6H PRN (Reason: nausea and vomiting) Qty: 7 0RF enoxaparin 40 mg/0.4 mL syringe 40 mg subcut DAILY Qty: 12 0RF linezolid 600 mg tablet 600 mg PO Q12H Qty: 14 0RF ciprofloxacin HCl [Cipro] 500 mg tablet 500 mg PO BID Qty: 20 0RF sulfamethoxazole-trimethoprim [Bactrim DS] 800-160 mg tablet 1 tab PO BID 7 Days Qty: 14 0RF oxycodone 5 mg tablet 5 mg PO Q6H PRN (Reason: pain) 3 Days Qty: 10 0RF insulin lispro [Humalog KwikPen Insulin] 100 unit/mL insulin pen 15 unit subcut TID MDD 60 Qty: 21 5RF Rx Instructions: 180-220 +4 221-260 +6 261-300 8 >300 +10 Primary Care Provider: Will Brannon Referrals: Will Brannon MD [Primary Care Provider] - 3-5 Days if not improving Disposition Disposition: Home, Self Care What to do if you have Problems For any increased pain, shortness of breath, bleeding, nausea or vomiting, chestpain, or any unexpected problems, contact your Primary Care Provider. Call [facility] ([phone]) or report to the closest Emergency Room. Call 911 if necessary. 12/12/222119 <Electronically signed by Dre Deal MD> Cosigner Signature (if applicable): CC: Dr. Will Brannon MD ~ Signed [facility] Work Phone: [phone]) 877-431107-15-2023 Evaluation + Plan note Diagnostic Tests Pending * Urine Culture 12/10/[address] [facility] 07-15-2023 Hospital Discharge instructions Patient Education 12/10/2022 02:32:57 Bladder Infection, Female (Adult) Bladder Infection, Female (Adult) Urine is normally doesn't have any bacteria in it. But bacteria can get into the urinary tract fromthe skin around the rectum. Or they can travel in the blood from elsewhere in the body. Once they are in your urinary tract, they can cause infection in the urethra (urethritis), the bladder (cystitis), or the kidneys (pyelonephritis). The most common place for an infection is in the bladder. This is called a bladder infection. This is one of the most common infections in women. Most bladder infections are easily treated. They are not serious unless the infection spreads to the kidney. The phrases bladder infection, UTI, and cystitis are often used to describe the same thing. But they are not always the same. Cystitis is an inflammation of the bladder. The most common cause of cystitis is an infection. Symptoms The infection causes inflammation in the urethra and bladder. This causes many of the symptoms. Themost common symptoms of a bladder infection are: Pain or burning when urinating Having to urinate more often than usual Urgent need to urinate Only a small amount of urine comes out Blood in urine Abdominal discomfort. This is usually in the lower abdomen above the pubic bone. Cloudy urine Strong- or bad-smelling urine Unable to urinate (urinary retention) Unable to hold urine in (urinary incontinence) Fever Loss of appetite Confusion (in older adults) Causes Bladder infections are not contagious. You can't get one from someone else, from a toilet seat, or from sharing a bath. The most common cause of bladder infections is bacteria from the bowels. The bacteria get onto the skin around the opening of the urethra. From there, they can get into the urine and travel up to thebladder, causing inflammation and infection. This usually happens because of: Wiping improperly after urinating. Always wipe from front to back. Bowel incontinence Procedures such as having a catheter inserted Older age Not emptying your bladder. This can allow bacteria a chance to grow in your urine. Dehydration Constipation Sex Use of a diaphragm for control Treatment Bladder infections are diagnosed by a urine test. They are treated with antibiotics and usually clear up quickly without complications. Treatment helps prevent a more serious kidney infection. Medicines Medicines can help in the treatment of a bladder infection: Take antibiotics until they are used up, even if you feel better. It is important to finish them tomake sure the infection has cleared. You can use acetaminophen or ibuprofen for pain, fever, or discomfort, unless another medicine was prescribed. If you have chronic liver or kidney disease, talk with your healthcare provider before using these medicines. Also talk with your provider if you've ever had a stomach ulcer or gastrointestinal bleeding, or are taking blood-thinner medicines. If you are given phenazopydridine to reduce burning with urination, it will cause your urine to become a bright orange color. This can stain clothing. Care and prevention These self-care steps can help prevent future infections: Drink plenty of fluids to prevent dehydration and flush out your bladder. Do this unless you must restrict fluids for other health reasons, or your doctor told you not to. Proper cleaning after going to the bathroom is important. Wipe from front to back after using the toilet to prevent the spread of bacteria. Urinate more often. Don't try to hold urine in for a long time. Wear loose-fitting clothes and cotton underwear. Avoid tight-fitting pants. Improve your diet and prevent constipation. Eat more fresh fruit and vegetables, and fiber, and less junk and fatty foods. Avoid sex until your symptoms are gone. Avoid caffeine, alcohol, and spicy foods. These can irritate your bladder. Urinate right after intercourse to flush out your bladder. If you use control pills and have frequent bladder infections, discuss it with your doctor. Follow-up care Call your healthcare provider if all symptoms are not gone after 3 days of treatment. This is especially important if you have repeat infections. If a culture was done, you will be told if your treatment needs to be changed. If directed, you cancall to find out the results. If X-rays were done, you will be told if the results will affect your treatment. Call 911 Call 911 if any of the following occur: Trouble breathing Hard to wake up or confusion Fainting or loss of consciousness Rapid heart rate When to seek medical advice Call your healthcare provider right away if any of these occur: Fever of 100.4 F (38.0 C) or higher, or as directed by your healthcare provider Symptoms are not better by the third day of treatment Back or belly (abdominal) pain that gets worse Repeated vomiting, or unable to keep medicine down Weakness or dizziness Vaginal discharge Pain, redness, or swelling in the outer vaginal area (labia) 5180-9209 [employer]. [address] [place] [address]. All rights reserved. This information is not intended as a substitute for professional medical care. Always follow yourhealthcare professional's instructions. Follow Up Care 12/10/2022 00:01:58 With:WILL BRANNON MD Address: [address] [place] [address]- When:2-[address] [facility] 07-15-2023 Note ORIGINAL EXAMINATION: CT OF THE ABDOMEN AND PELVIS WITH CONTRAST 12/10/2022 1:33 am TECHNIQUE: CT of the abdomen and pelvis was performed with the administration of intravenous contrast. Multiplanar reformatted images are provided for review. Automated exposure control, iterative reconstruction, and/or weight based adjustment of the mA/kV was utilized to reduce the radiation dose to as low as reasonably achievable. COMPARISON: 11/22/2022. HISTORY: ORDERING SYSTEM PROVIDED HISTORY: Reason for Exam: pain Patient states right-sided throbbing pain around kidney in left lower throbbing pain. FINDINGS: Degenerative changes of the spine as well as multilevel laminectomy defects, consistent with reported history of spina bifida. The included thoracic structures are unremarkable. Normal liver. Collapsed or surgically absent gallbladder. Normal spleen, pancreas, and adrenal glands. Symmetric nephrograms without evidence of hydronephrosis. Stable scattered renal cortical scarring in the right kidney. Nonobstructive right nephrolithiasis with stone in the lower pole measuring up to 5 mm. No evidence of stone disease on the left. The ureters are normal in course and caliber. Nonaneurysmal abdominal aorta. No abdominal lymphadenopathy, free fluid, or free air. Rectal stump noted with anastomotic suture material. Ostomy in the left mid abdomen with similar appearing peristomal hernia sac containing a loop of colon without pneumatosis or free fluid collection. Diverticulosis without diverticulitis. The small bowel is unremarkable. Postsurgical changes of the ventral abdominal wall. There is a small fat containing ventral abdominal wall hernia within air-filled tubular structure, likely the appendix, without surrounding infiltrative changes to suggest acute appendicitis. Collapsed urinary bladder with suprapubic Cook catheter in place. The urinary bladder wall however appears mildly thickened. Associated intraluminal air due to instrumentation. Otherwise pelvic organs are unremarkable. IMPRESSION: Nonobstructive right nephrolithiasis. No evidence of stone disease on the left. Collapsed urinary bladder with suprapubic Cook catheter in place. Question mild urinary bladder wall thickening, for which correlation with urinalysis is advised. Stable parastomal and ventral abdominal wall hernias. Postsurgical changes as detailed above. I have personally reviewed the images of this examination and agree with the resident's findings and interpretation. Interpreted by: Donavon Figueroa MD Preliminary Report By: Josue Millan Electronically signed By Donavon Figueroa MD Dictated Date: 12/10/2022 1:34:50 AM Prelim Date: 12/10/2022 1:46:07 AM Sign Date: 12/10/2022 3:46:59 AM Ordering Provider: CAS PAYNE [facility]07-15-2023 Note Discharge Instructions Thank you for allowing [facility] to assist you with your healthcare needs. The following is importantdischarge information regarding your hospital visit. Diagnosis from Today's Visit Flank pain What to Do Next Instructions from Your Care Team No qualifying data available. Post Acute Orders No qualifying data available. You Need to Schedule the Following Appointments Follow Up with WILL BRANNON MD When Within 2-4 days [facility] [address] [facility] [place] [address] Allergies Mushrooms (Throat swelling) Peanuts (Throat swelling) Rocephin (Hives) cephalosporins (Anaphylaxis, Hives) gabapentin (psychotic breakdown) Contrast dye (Vomiting) Latex (Hives) penicillin (Unknown) Medications Please ask your primary doctor or pharmacist before taking any other medication not listed, including over the counter drugs, herbal medications, vitamins and or supplements as they may interact withyour home medications. What How Much When Instructions Last Dose New sulfamethoxazole-trimethoprim (Bactrim DS 800 mg-160 mg oral tablet) 1 tab(s) by mouth Two (2) times a day Duration: 10 Days Printed Prescription Unchanged furosemide (Lasix 20 mg oral tablet) 2 tab(s) by mouth Once a day (in the morning) Unchanged furosemide (Lasix 20 mg oral tablet) 1 tab(s) by mouth Once a day (in the evening) Unchanged insulin aspart (Novolog) (Fiasp FlexTouch 100 units/ mL injectable solution) 15 unit(s) Subcutaneous Three (3) times a day before meals Unchanged insulin aspart (Novolog) (Fiasp FlexTouch 100 units/ mL injectable solution) See instructions Sliding scale TIDAC Unchanged insulin glargine (Lantus) 30 unit(s) Subcutaneous Daily at bedtime Unchanged lisinopril (lisinopril 2.5 mg oral tablet) 1 tab(s) by mouth Once a day Unchanged oxybutynin (oxybutynin 15 mg/ 24 hr oral tablet, extended release) 1 tab(s) by mouth Once a day (in the evening) Unchanged propranolol (propranolol 20 mg oral tablet) 0.5 tab(s) by mouth Two (2) times a day Please take this list to your next doctor s visit. Bring all medications you take, including over the counter medications, herbals and other supplements with you to your doctor s visit. Patients and families are reminded to discard old lists and to update any records with all medication providers or retail pharmacies. Medication Leaflets sulfamethoxazole and trimethoprim (oral/injection) (SUL fa meth OX a zole and trye METH oh prim) Bactrim, Bactrim DS, SMZ-TMP DS, Sulfatrim Pediatric What is the most important information I should know about sulfamethoxazole and trimethoprim? Use only as directed. Tell your doctor if you use other medicines or have other medical conditions or allergies. What is sulfamethoxazole and trimethoprim? Sulfamethoxazole and trimethoprim is a combination antibiotic used to treat ear infections, urinarytract infections, bronchitis, traveler's diarrhea, shigellosis, and Pneumocystis jiroveci pneumonia. Sulfamethoxazole and trimethoprim may also be used for purposes not listed in this medication guide. What should I discuss with my healthcare provider before using sulfamethoxazole and trimethoprim? You should not use this medicine if you are allergic to sulfamethoxazole or trimethoprim, or if youhave: severe liver disease; kidney disease that is not being treated or monitored; anemia (low red blood cells) caused by folic acid deficiency; a history of low blood platelets after taking trimethoprim or any sulfa drug; or if you take dofetilide. May cause defects. Do not use if you are . Tell your doctor if you become . Do not breastfeed. This medicine should not be given to a child younger than 2 months old. Tell your doctor if you have ever had: kidney or liver disease; a folate (folic acid) deficiency; asthma or severe allergies; HIV or AIDS; a thyroid disorder; malnourishment; alcoholism; an electrolyte imbalance (such as low blood sodium or high potassium); porphyria, or mtbodoo-1-blindxatk dehydrogenase (G6PD) deficiency; or if you use a blood thinner (such as warfarin) and you have routine 'INR' or prothrombin time tests. How should I use sulfamethoxazole and trimethoprim? Follow all directions on your prescription label and read all medication guides or instruction sheets. Use the medicine exactly as directed. Sulfamethoxazole and trimethoprim oral is taken by mouth. Shake the oral suspension (liquid). Measure a dose with the supplied measuring device (not a kitchen spoon). Sulfamethoxazole and trimethoprim injection is given in a vein. Be sure you understand how to properly mix this medicine with a liquid (diluent) and how to store the mixture. Ask your doctor or pharmacist if you don't understand how to use an injection. Prepare an injection only when you are ready to give it. Call your pharmacist if the medicine lookscloudy, has changed colors, or has particles in it. Mixed medicine must be used within 2 to 6 hours depending on the amount of diluent in the mixture. Follow your doctor's instructions. Do not refrigerate mixed medicine. Do not reuse a needle or syringe. Place them in a puncture-proof 'sharps' container and dispose of it following state or local laws. Keep out of the reach of children and pets. Drink plenty of fluids to prevent kidney stones. Antibiotic medicines can cause diarrhea. Tell your doctor if you have diarrhea that is watery or bloody. Keep using this medicine even if your symptoms quickly improve. Skipping doses could make your infection resistant to medication. Sulfamethoxazole and trimethoprim will not treat a viral infection (flu or a common cold). You may need blood and urine tests, and this medicine may be stopped based on the results. Store at room temperature away from moisture, heat, and light. Do not refrigerate. What happens if I miss a dose? Use the medicine as soon as you can, but skip the missed dose if it is almost time for your next dose. Do not use two doses at one time. What happens if I overdose? Seek emergency medical attention or call the Poison Help line at . Overdose symptoms may include loss of appetite, vomiting, fever, blood in your urine, yellowing of your skin or eyes, confusion, or loss of consciousness. What should I avoid while using sulfamethoxazole and trimethoprim? If you use the injection form of this medicine, do not eat or drink anything that contains propylene glycol (an ingredient in many processed foods, soft drinks, and medicines). Dangerous effects could occur. Sulfamethoxazole and trimethoprim could make you sunburn more easily. Avoid sunlight or tanning beds. Wear protective clothing and use sunscreen (SPF 30 or higher) when you are outdoors. What are the possible side effects of sulfamethoxazole and trimethoprim? Get emergency medical help if you have signs of an allergic reaction (hives, cough, chest pain, shortness of breath, swelling in your face or throat) or a severe skin reaction (fever, sore throat, burning eyes, skin pain, red or purple skin rash with blistering and peeling). Seek medical treatment if you have a serious drug reaction that can affect many parts of your body. Symptoms may include: skin rash, fever, swollen glands, joint pain, muscle aches, severe weakness,pale skin, unusual bruising, or yellowing of your skin or eyes. Call your doctor at once if you have: severe stomach pain, diarrhea that is watery or bloody (even if it occurs months after your last dose); any skin rash, no matter how mild; yellowing of your skin or eyes; a seizure; new or unusual joint pain; increased or decreased urination; swelling, bruising, or irritation around the IV needle; increased thirst, dry mouth, fruity breath odor; new or worsening cough, fever, trouble breathing; high blood potassium--nausea, weakness, tingly feeling, chest pain, irregular heartbeats, loss of movement; low blood sodium--headache, confusion, problems with thinking or memory, weakness, feeling unsteady; or low blood cell counts--fever, chills, mouth sores, skin sores, easy bruising, unusual bleeding, pale skin, cold hands and feet, feeling light-headed or short of breath. Common side effects may include: nausea, vomiting, loss of appetite; or skin rash. This is not a complete list of side effects and others may occur. Call your doctor for medical advice about side effects. You may report side effects to FDA at 2-225-EBS-4286. What other drugs will affect sulfamethoxazole and trimethoprim? You may need more frequent check-ups or medical tests if you also use medicine to treat depression,diabetes, seizures, or HIV. Tell your doctor about all your current medicines. Many drugs can affect sulfamethoxazole and trimethoprim, especially: amantadine, digoxin, cyclosporine, indomethacin, leucovorin, methotrexate, procainamide, pyrimethamine; an 'KOMAL inhibitor' heart or blood presure medication (benazepril, enalapril, lisinopril, quinapril,ramipril, and others); or a diuretic or 'water pill'. This list is not complete and many other drugs may affect sulfamethoxazole and trimethoprim. This includes prescription and lsbe-yox-dwhphun medicines, vitamins, and herbal products. Not all possibledrug interactions are listed here. Where can I get more information? Your pharmacist can provide more information about sulfamethoxazole and trimethoprim. Remember, keep this and all other medicines out of the reach of children, never share your medicines with others, and use this medication only for the indication prescribed. Every effort has been made to ensure that the information provided by [employer]. ('[employer]') is accurate, up-to-date, and complete, but no guarantee is made to that effect. Drug information contained herein may be time sensitive. [employer] information has been compiled for use by healthcare practitioners and consumers in the [place] and therefore [employer] does not warrant that uses outside of the [place] are appropriate, unless specifically indicated otherwise. [employer] drug information does not endorse drugs, diagnose patients or recommend therapy. [employer] drug information isan informational resource designed to assist licensed healthcare practitioners in caring for their p atients and/or to serve consumers viewing this service as a supplement to, and not a substitute for, the expertise, skill, knowledge and judgment of healthcare practitioners. The absence of a warningfor a given drug or drug combination in no way should be construed to indicate that the drug or drug combination is safe, effective or appropriate for any given patient. [employer] does not assume any responsibility for any aspect of healthcare administered with the aid of information [employer] provides. The information contained herein is not intended to cover all possible uses, directions, precautions, warnings, drug interactions, allergic reactions, or adverse effects. If you have questions about the drugs you are taking, check with your doctor, nurse or pharmacist. Copyright 3219-1776 [employer]. Version: .. Revision Date: 01/25/2021. Education Materials Bladder Infection, Female (Adult) Urine is normally doesn't have any bacteria in it. But bacteria can get into the urinary tract fromthe skin around the rectum. Or they can travel in the blood from elsewhere in the body. Once they are in your urinary tract, they can cause infection in the urethra (urethritis), the bladder (cystitis), or the kidneys (pyelonephritis). The most common place for an infection is in the bladder. This is called a bladder infection. This is one of the most common infections in women. Most bladder infections are easily treated. They are not serious unless the infection spreads to the kidney. The phrases bladder infection, UTI, and cystitis are often used to describe the same thing. But they are not always the same. Cystitis is an inflammation of the bladder. The most common cause of cystitis is an infection. Symptoms The infection causes inflammation in the urethra and bladder. This causes many of the symptoms. Themost common symptoms of a bladder infection are: Pain or burning when urinating Having to urinate more often than usual Urgent need to urinate Only a small amount of urine comes out Blood in urine Abdominal discomfort. This is usually in the lower abdomen above the pubic bone. Cloudy urine Strong- or bad-smelling urine Unable to urinate (urinary retention) Unable to hold urine in (urinary incontinence) Fever Loss of appetite Confusion (in older adults) Causes Bladder infections are not contagious. You can't get one from someone else, from a toilet seat, or from sharing a bath. The most common cause of bladder infections is bacteria from the bowels. The bacteria get onto the skin around the opening of the urethra. From there, they can get into the urine and travel up to thebladder, causing inflammation and infection. This usually happens because of: Wiping improperly after urinating. Always wipe from front to back. Bowel incontinence Procedures such as having a catheter inserted Older age Not emptying your bladder. This can allow bacteria a chance to grow in your urine. Dehydration Constipation Sex Use of a diaphragm for control Treatment Bladder infections are diagnosed by a urine test. They are treated with antibiotics and usually clear up quickly without complications. Treatment helps prevent a more serious kidney infection. Medicines Medicines can help in the treatment of a bladder infection: Take antibiotics until they are used up, even if you feel better. It is important to finish them tomake sure the infection has cleared. You can use acetaminophen or ibuprofen for pain, fever, or discomfort, unless another medicine was prescribed. If you have chronic liver or kidney disease, talk with your healthcare provider before using these medicines. Also talk with your provider if you've ever had a stomach ulcer or gastrointestinal bleeding, or are taking blood-thinner medicines. If you are given phenazopydridine to reduce burning with urination, it will cause your urine to become a bright orange color. This can stain clothing. Care and prevention These self-care steps can help prevent future infections: Drink plenty of fluids to prevent dehydration and flush out your bladder. Do this unless you must restrict fluids for other health reasons, or your doctor told you not to. Proper cleaning after going to the bathroom is important. Wipe from front to back after using the toilet to prevent the spread of bacteria. Urinate more often. Don't try to hold urine in for a long time. Wear loose-fitting clothes and cotton underwear. Avoid tight-fitting pants. Improve your diet and prevent constipation. Eat more fresh fruit and vegetables, and fiber, and less junk and fatty foods. Avoid sex until your symptoms are gone. Avoid caffeine, alcohol, and spicy foods. These can irritate your bladder. Urinate right after intercourse to flush out your bladder. If you use control pills and have frequent bladder infections, discuss it with your doctor. Follow-up care Call your healthcare provider if all symptoms are not gone after 3 days of treatment. This is especially important if you have repeat infections. If a culture was done, you will be told if your treatment needs to be changed. If directed, you cancall to find out the results. If X-rays were done, you will be told if the results will affect your treatment. Call 911 Call 911 if any of the following occur: Trouble breathing Hard to wake up or confusion Fainting or loss of consciousness Rapid heart rate When to seek medical advice Call your healthcare provider right away if any of these occur: Fever of 100.4 F (38.0 C) or higher, or as directed by your healthcare provider Symptoms are not better by the third day of treatment Back or belly (abdominal) pain that gets worse Repeated vomiting, or unable to keep medicine down Weakness or dizziness Vaginal discharge Pain, redness, or swelling in the outer vaginal area (labia) 7005-9212 [employer]. [address] [place] [address]. All rights reserved. This information is not intended as a substitute for professional medical care. Always follow yourhealthcare professional's instructions. Additional Information VACCINATE! IT SAVES LIVES! Members of the community who have not yet received the COVID-19 vaccine and would like to receive it can visit one of [facility] vaccine clinics. There are many vaccine clinic locations within the [facility]. For locations and available times, please visit [email or web address]/. It is important to note that some COVID mobile vaccine clinics are held outdoors and may be canceled in rainy or stormy conditions. To learn more about pediatric vaccinations (ages 5-11), we invite you to visit the [facility] webpage. [email or web address]/[email or web address] [email or web address] learn more about the COVID-19 vaccine, we invite you to visit the CDC website for a list of frequently asked questions. https://www.cdc.gov/coronavirus/2019-ncov/vaccines/faq.html [facility] Patient Portal Access Instructions: Stay connected with your healthcare team and access your personal medical information anytime with the [email or web address] Patient Portal. If you would like a full copy of your medical records please contact the [facility] Medical Records Department Monday through Monday between 8a.m. and 4:30p.m. Please follow the directions below to access the portal: 1.Access the email account you provided upon registration to the [facility].2.Look for an invitation email from [facility].3.Open the email and access the invitation link: Accept Invitation to [facility].Fill in the required hartley to create your account. Sign into www.[employer] with your username and password that you created in the above steps to stay up to date. You can then view a summary of results, a summary of your visits, and the ability to download your summaries to your computer or send the information securely to a physician. Remember that your healthcare information is confidential, so carefully consider who you will allow to register on the [email or web address] Patient Portal for access to your information. You can also access the [email or web address] Patient Portal on the [employer] roebrt. Simply click on Health Records under [employer] and then click on the [employer] logo. HOW TO SAFELY DISPOSE OF PRESCRIPTION MEDICATIONS Please use one of the following methods to safely dispose of your unused medications. 1.Use a drug disposal kit: the drug disposal pouch allows you to safely discard your old and unuseddrugs. Ask your nurse to give you one when you are discharged.2.Visit a local take-back location: Many local pharmacies and police departments have programs that collect old and unwanted prescriptiondrugs. Call your local pharmacy or go to http://bit.[employer]/6H9Qc9n to find one close to you.3.Make use of household items: Use cat litter or old coffee grounds to dispose medications if other options arenot available. Mix your drugs with these household products, seal them in an airtight container andthrow it into the garbage. Call [facility]: [phone] to be sure your drugs can be disposed of in this way. Some medicines may require a different approach.4.Never flush your medications down the toilet. IF YOU HAVE BEEN PRESCRIBED AN OPIOIDS FOR PAIN If you have been prescribed an opioid (such as hydrocodone, oxycodone or morphine), it is critical to understand the possible side effects and risks of opioid pain medications. Even when taken as directed, opioids can have several side effects including: Tolerance, meaning you might need to take more of a medication for the same pain relief. Nausea, vomiting and/or constipation. Sleepiness, dizziness, dry mouth, confusion, depression or itching. Physical dependence, meaning you have withdrawal symptoms when a medication is stopped ? this can develop within a few days. KNOW YOUR RESPONSIBILITIES It is important to know exactly how much and how often to take the opioid pain medications you are prescribed. Never take opioids in higher amounts or more often than prescribed. Do not combine opioids with alcohol or other drugs that cause drowsiness, such as benzodiazepines, also known as benzos,including diazepam and alprazolam, muscle relaxants or sleep aids. Never sell or share prescriptionopioids. This is illegal. Store opioids in a secure place and out of reach of others (including children, family, friends and visitors). The last page(s) of this document has been signed and retained as a CHART COPY Signatures Patient Education Materials Bladder Infection, Female (Adult) Medication Leaflets sulfamethoxazole and trimethoprim (oral/injection) My discharge plan and instructions have been reviewed and explained to me and IUVALDO ANGELA Lunderstand my current condition and have read and understand these discharge instructions. I have received a written copy of the plan/instructions. If I have questions, I am aware that I should contact my doctor. 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 Multiplanar reformatted images are provided for review. Automated exposure control, iterative reconstruction, and/or weight based adjustment of the mA/kV was utilized to reduce the radiation dose to as low as reasonably achievable. COMPARISON: 11/22/2022. HISTORY: ORDERING SYSTEM PROVIDED HISTORY: Reason for Exam: pain Patient states right-sided throbbing pain around kidney in left lower throbbing pain. FINDINGS: Degenerative changes of the spine as well as multilevel laminectomy defects, consistent with reported history of spina bifida. The included thoracic structures are unremarkable. Normal liver. Collapsed or surgically absent gallbladder. Normal spleen, pancreas, and adrenal glands. Symmetric nephrograms without evidence of hydronephrosis. Stable scattered renal cortical scarring in the right kidney. Nonobstructive right nephrolithiasis with stone in the lower pole measuring up to 5 mm. No evidence of stone disease on the left. The ureters are normal in course and caliber. Nonaneurysmal abdominal aorta. No abdominal lymphadenopathy, free fluid, or free air. Rectal stump noted with anastomotic suture material. Ostomy in the left mid abdomen with similar appearing peristomal hernia sac containing a loop of colon without pneumatosis or free fluid collection. Diverticulosis without diverticulitis. The small bowel is unremarkable. Postsurgical changes of the ventral abdominal wall. There is a small fat containing ventral abdominal wall hernia within air-filled tubular structure, likely the appendix, without surrounding infiltrative changes to suggest acute appendicitis. Collapsed urinary bladder with suprapubic Cook catheter in place. The urinary bladder wall however appears mildly thickened. Associated intraluminal air due to instrumentation. Otherwise pelvic organs are unremarkable. IMPRESSION: Nonobstructive right nephrolithiasis. No evidence of stone disease on the left. Collapsed urinary bladder with suprapubic Cook catheter in place. Question mild urinary bladder wall thickening, for which correlation with urinalysis is advised. Stable parastomal and ventral abdominal wall hernias. Postsurgical changes as detailed above. I have personally reviewed the images of this examination and agree with the resident's findings and interpretation. Interpreted by: Donavon Figueroa MD Preliminary Report By: Josue Millan Electronically signed By Donavon Figueroa MD Dictated Date: 12/10/2022 1:34:50 AM Prelim Date: 12/10/2022 1:46:07 AM Sign Date: 12/10/2022 3:46:59 AM Ordering Provider: [place] 26629-07-2023 History of Present illness Narrative* Cory Box PA-C - 12/02/2022 3:43 PM EDT HPI: Debby Bailon 42 yo female with neurogenic bladder here for monthly SPT irrigation and exchange He is overall doing very well, has had some cause for alarm with Pyelonephritis But with antibiotics she does well PAST MEDICAL HISTORY Diagnosis Date Amputation of left great toe (HCC) 06/25/2020 Anxiety Arthritis started age 19 Bilateral leg edema 07/16/2018 Cervical radiculopathy 05/02/2013 Chronic pain 02/12/[address] ([facility]) 09/30/2021 Constipation due to outlet dysfunction 10/07/2021 Cyst of ovary 11/28/2011 Diabetic eye exam ([facility]) 06/17/2016 Last done: 01/25/2017 Diabetic eye exam (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 Will monitor. Lipomeningocele, sacral level 09/12/2013 Lumbago 02/12/2015 Medicare annual wellness visit, subsequent 02/28/2018 last done: 02/28/2018 Migraine without aura and without status migrainosus, not intractable 10/18/2016 Miscarriage Mixed hyperlipidemia 02/28/2018 Muscle weakness of left lower extremity 08/07/2013 Neck pain 05/02/2013 Neurogenic bladder 02/12/2015 Neurogenic bowel 01/06/2016 Neuropathy 02/12/2015 post back surgery with secondary infection. Seeing Dr. Gregg Non-compliance 09/02/2022 Even stated in endocrine note from 09/01/2022 Numbness and tingling of left arm and leg 08/07/2013 Obesity, Class II, BMI 35-39.9 02/12/2015 Panic attacks Paroxysmal SVT (supraventricular tachycardia) (HCC) 07/03/2017 Per 48 Hr event monitor 06/30/2017 Primary insomnia 02/17/2016 S/P hernia repair 12/11/2017 Spina bifida (HCC) 01/06/2016 Suprapubic catheter (HCC) Thyroid cyst 01/01/2018 Complex right sided cysts. US 12/2017, biopsy per Dr. Josue 01/23/2018 benign. Repeat US in a year. 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 nl AMPUTATION TOE,MT-P JT Left 02/11/2020 left big toe CATH, SUPRAPUBIC/CYSTOSCOPIC 11/07/2018 COLOSTOMY 10/01/2021 CYSTOSCOPY,REMV CALCULUS,COMPLIC 11/10/2020 DILATION & CURETTAGE DX&/THER NONOBSTETRIC Dilation & curettage HERNIA REPAIR W/MESH 2019 LEXISCAN STRESS TEST 07/20/2018 negative NUCLEAR STRESS LEXISCAN (CARD) 10/24/2018 negative PAST SURGICAL HISTORY OF 2011 cholecystectomy PAST SURGICAL HISTORY OF 09/2012 back surgery x2 PAST SURGICAL HISTORY OF Left & 02/2014 foot x2 PAST SURGICAL HISTORY OF 07/2015 Bowles stoma PAST SURGICAL HISTORY OF 09/30/2021 Laparoscopic end colostomy REPAIR UMBILICAL HERNIA 12/11/2017 STRESS ECHO 12/09/2019 Negative STRESS TEST 07/18/2017 normal STRESS TEST 03/15/2018 negative Social History Tobacco Use Smoking status: Never Smokeless tobacco: Never Vaping Use Vaping Use: Never used Substance Use Topics Alcohol use: Not Currently Comment: social Drug use: Never Current Outpatient Medications on File Prior to Visit Medication Sig busPIRone (BUSPAR) 15 mg tablet Take 15 mg by mouth. insulin lispro (HUMALOG KWIKPEN) 100 unit/mL Inject subcutaneously. phenazopyridine (PYRIDIUM, GERIDIUM) 200 mg tablet TWICE DAILY NEEDED acetaminophen (TYLENOL) 500 mg tablet Take 650 mg by mouth. magnesium hydroxide (MOM) 400 mg/5 mL suspension Take 30 mL by mouth every 6 hours. (Patient takingdifferently: Take 30 mL by mouth every 6 hours. Takes every six hours as needed) insulin glargine (LANTUS SOLOSTAR U-100 INSULIN) 100 unit/mL (3 mL) Inject 33 Units subcutaneously daily at bedtime. E11.65 insulin aspart, niacinamide, (FIASP FLEXTOUCH U-100 INSULIN) 100 unit/mL (3 mL) pen Inject 18 Unitssubcutaneously three times daily before meals. (Includes SS # 2 QAC -> Per Umm, Dr. Monson) MAX TDD = 55 UNITS / DAY. E11.65 glimepiride (AMARYL) 2 mg tablet Take 1 tablet by mouth twice daily with meals. Per Umm: Dr. Monson lisinopril (ZESTRIL, PRINIVIL) 5 mg tablet Take 1 tablet by mouth once daily. Per Dr. Ermias Salomon loratadine (CLARITIN) 10 mg tablet Take 1 tablet by mouth once daily. atorvastatin (LIPITOR) 80 mg tablet Take 1 tablet by mouth once daily. furosemide (LASIX) 40 mg tablet Take 1 tablet by mouth once daily. Take in morning oxybutynin ER (DITROPAN XL) 15 mg 24 hr Extended Rel Tab Take 1 tablet by mouth once daily. propranolol (INDERAL) 20 mg tablet Take 1 tablet by mouth twice daily. traZODone (DESYREL) 100 mg tablet Take 1 tablet by mouth daily at bedtime. furosemide (LASIX) 20 mg tablet Take 20 mg by mouth daily at bedtime. sodium chloride irrig solution (NACL 0.9% IRRIGATION BOTTLE) To use for catheter irrigation daily or as needed. Insulin [place], Disposable, (COMFORT EZ PEN NEEDLES) 29 gauge x 1/2 One needle with each lantus shot once a day. Dx: E13.29 on insulin PSEUDOEPHEDRINE HCL ORAL Take 30 mg by mouth as needed. ondansetron orally disintegrating (ZOFRAN ODT) 8 mg disintegrating tablet 8 mg as needed. fluticasone (FLONASE) 50 mcg/actuation nasal spray Use 2 Sprays in each nostril once daily. Rinse mouth after use. Insulin [place], Disposable, 32 gauge x 5/16 ndle Use once daily with Victoza Lancets (ACCU-CHEK FASTCLIX) lancets Test blood sugar 2 times/day. Dx: Other DM Code E13.29 InsulinUse: No (Patient taking differently: Test blood sugar 2 times/day. Dx: Other DM Code E13.29 InsulinUse: No) COMPOUNDED PRESCRIPTION Stoma catheter tube. DX: Qo5.4 and K59.2 No current facility-administered medications on file prior to visit. ROS: Constitutional: negative Gastrointestinal: negative PHYSICAL EXAM: BP 120/68 Pulse 94 Temp 36.3 C (97.3 F) Wt 97 kg (213 lb 12.8 oz) LMP 10/20/2022 (Approximate) SpO2 96% BMI 40.40 kg/m GENERAL: Wnl nutrition, no deformities, healthy appearing in wheelchair ABDOMEN: Soft, nontender, nondistended, no masses. 18Fr SPT in place draining well with clear yellow urine. Colostomy in place with productive output GENITOURINARY: FEMALE EXAM: Not indicated No results found for: PSA Creatinine (mg/dL) Date Value 08/29/2022 0.89 02/09/2022 0.74 10/07/2021 0.66 10/06/2021 0.68 10/05/2021 0.58 03/23/2021 0.60 10/30/2020 0.71 06/25/2020 0.69 03/09/2020 0.80 10/30/2019 0.82 No results found for: TESTOST A/P: 42 year old female with history of HTN, HLD, DM2 c/b amputation of L great toe, chronic constipation, neurogenic bladder d/t spina bifida managed with monthly SPT exchanges since 08/2018 (last done 11/2022) She has had Bladder Stone formation and treatment ,no further stone presently Assessment/Plan: > Cook catheter removal > Successful cook catheter insertion with SPT stoma > Monthly SPT exchange with Nurse Cory Box, [facility], [place], [place] * Naty Haddad LPN - 12/02/2022 3:27 PM EDT CC Supra pubic catheter in Place HPI: Debby Bailon is a 42 year old female. The patient is here now for a supra pubic catheter change with diagnosis neurogenic bladder. Procedure: Performed a catheter change. States she just returned from vacation in [place] at 0130. No fluid in bulb of catheter when removing bandaging around supra pubic site. The indwelling supra pubic cook size 18 Fr was removed with catheter tip intact without difficulty. Inserted 18 Fr catheter using aseptic technique. No urine return. Irrigated with 60 mL 0.9% sodium chloride. Approximately 60 mLs light yellow urine with some sediment throughout noted. Bulb inflated with 10 mLs prefilled syringe- sterile water. T-Sponge applied to SPT base per patient preference attached to drainage bag. Thepatient tolerated the procedure well. Patient does not like tubing secured. Assessment/Plan: Successful catheter change. Return for catheter changes as planned. Scheduled for annual visit with provider. Naty Haddad LPN [facility] Plan note Diagnostic Tests Pending * Urine Culture 11/22/[address] [facility] 06-27-2023 Hospital Discharge instructions Patient Education 11/22/2022 02:26:35 Pyelonephritis, Female (Adult) Kidney Infection (Adult Female) An infection in one or both kidneys is called pyelonephritis. It usually happens when bacteria (or rarely, viruses, fungi, or other disease-causing organisms) get into the kidney. The bacteria (or other disease-causing organisms) can enter the kidneys from the bladder or blood traveling from other parts of the body. A kidney infection can become serious. It can cause severe illness, scarring ofthe kidneys, or kidney failure if not treated properly. Common causes for this problem include: Not keeping the genital area clean and dry, which promotes the growth of bacteria Wiping back to front which drags bacteria from the rectum toward the urinary opening (urethra) Wearing tight pants or underwear (this lets moisture build up in the genital area, which helps bacteria grow) Holding urine in for long periods of time Dehydration Kidney infections can cause symptoms similar to a bladder infection. Symptoms include: Pain (or burning) when urinating Having to urinate more often than usual Blood in the urine (pink or red) Abdominal pain or discomfort, usually in the lower abdomen Pain in the side or back Pain above the pubic bone Fever or chills Vomiting Loss of appetite Treatment is oral antibiotics, or in more severe cases, intramuscular or IV antibiotics. These are started right away and may be changed once urine culture results determine the infecting organisms. Treatment helps prevent a more serious kidney infection. Medicines Medicines can help in the treatment of a bladder infection: Take antibiotics until they are used up, even if you feel better. It is important to finish them tomake sure the infection is gone. Unless another medicine was prescribed, you can use wggf-yid-vqqhfic medicines for pain, fever, or discomfort. If you have chronic liver of kidney disease, talk with your healthcare provider before using these medicines. Also talk with your provider if you've ever had a stomach ulcer or gastrointestinal (GI) bleeding, or are taking blood thinners. Home care The following are general care guidelines: Stay home from work or school. Rest in bed until your fever breaks and you are feeling better, or as advised by your healthcare provider. Drink lots of fluid unless you must restrict fluids for other medical reasons. This will force the medicine into your urinary system and flush the bacteria out of your body. Ask your healthcare provider how much you should drink. Don't have sex until you have finished all of your medicine and your symptoms are gone. Don't have caffeine, alcohol, or spicy foods. These foods may irritate the kidneys and bladder. Don't take bubble baths. Sensitivity to the chemicals in bubble baths can irritate the urethra. Make sure you wipe from front to back after using the toilet. Wear loose cloths and cotton underwear. Prevention These self-care steps can help prevent future infections: Drink plenty of fluids to prevent dehydration and flush out the bladder. Do this unless you must restrict fluids for other health reasons, or your healthcare provider told you not to. Proper cleaning after going to the bathroom in important. Make sure you wipe from front to back after using the toilet. Urinate more often. Don't try to hold urine in for a long time. Don't wear tight-fitting pants and underwear. Improve your diet to prevent constipation. Eat more fruits, vegetables, and fiber. Eat less junk and fatty foods. Constipation can make a urinary tract infection more likely. Talk with your healthcare provider if you have trouble with bowel movements. Urinate right after intercourse to flush out the bladder. Follow-up care Follow up with your healthcare provider, or as advised. Additional testing may be needed to make sure the infection has cleared. Close follow-up and further testing is very important to find the cause and to prevent future infections. If a urine culture was done, you will be contacted if your treatment needs to be changed. If directed, you may call to find out the results. If you had an X-ray, CT scan, or other diagnostic test, you will be notified of any new findings that may affect your care. Call 911 Call 911 if any of the following occur: Trouble breathing Fainting or loss of consciousness Rapid or very slow heart rate Weakness, dizziness, or fainting Difficulty arousing or confusion When to seek medical advice Call your healthcare provider right away if any of these occur: Fever 100.4 F (38 C) or higher, or as directed by your healthcare provider Not feeling better within 1 to 2 days after starting antibiotics Any symptom that continues after 3 days of treatment Increasing pain in the stomach, back, side, or groin area Repeated vomiting Not able to take prescribed medicine due to nausea or another reason Bloody, dark-colored, or foul smelling urine Trouble urinating or decreased urine output No urine for 8 hours, no tears when crying, sunken eyes, or dry mouth [id number] [employer]. [address] [place] [address], [place] [address]. All rights reserved. This information is not intended as a substitute for professional medical care. Always follow yourhealthcare professional's instructions. Follow Up Care 11/21/2022 23:47:06 With:WILL BRANNON MD Address: [address] [place] [id number]- When:2-4 days [facility] Sarwat Rodriguez 06-27-2023 Note Discharge Instructions Thank you for allowing [facility] to assist you with your healthcare needs. The following is importantdischarge information regarding your hospital visit. Diagnosis from Today's Visit UTI - Urinary tract infection Pyelonephritis Flank pain What to Do Next Instructions from Your Care Team No qualifying data available. Post Acute Orders No qualifying data available. You Need to Schedule the Following Appointments Follow Up with WILL BRANNON MD When Within 2-4 days Where: [address] [place] [address]- Allergies Mushrooms (Throat swelling) Peanuts (Throat swelling) Rocephin (Hives) cephalosporins (Anaphylaxis, Hives) gabapentin (psychotic breakdown) Contrast dye (Vomiting) Latex (Hives) penicillin (Unknown) Medications Please ask your primary doctor or pharmacist before taking any other medication not listed, including over the counter drugs, herbal medications, vitamins and or supplements as they may interact withyour home medications. What How Much When Why Instructions Last Dose New acetaminophen-oxyCODONE (Percocet 5 mg-325 mg oral tablet) 1 tab(s) by mouth Every 6 hours as needed for for pain UTI - Urinary tract infection Duration: 3 Days Printed Prescription New ondansetron (Zofran 4 mg oral tablet) 1 tab(s) by mouth Every 8 hours UTI - Urinary tract infection Duration: 5 Days Printed Prescription New sulfamethoxazole-trimethoprim (Bactrim DS 800 mg-160 mg oral tablet) 1 tab(s) by mouth Two (2) times a day UTI - Urinary tract infection Duration: 14 Days Printed Prescription Unchanged furosemide (Lasix 20 mg oral tablet) 2 tab(s) by mouth Once a day (in the morning) Unchanged furosemide (Lasix 20 mg oral tablet) 1 tab(s) by mouth Once a day (in the evening) Unchanged insulin aspart (Novolog) (Fiasp FlexTouch 100 units/ mL injectable solution) 15 unit(s) Subcutaneous Three (3) times a day before meals Unchanged insulin aspart (Novolog) (Fiasp FlexTouch 100 units/ mL injectable solution) See instructions Sliding scale TIDAC Unchanged insulin glargine (Lantus) 30 unit(s) Subcutaneous Daily at bedtime Unchanged lisinopril (lisinopril 2.5 mg oral tablet) 1 tab(s) by mouth Once a day Unchanged oxybutynin (oxybutynin 15 mg/ 24 hr oral tablet, extended release) 1 tab(s) by mouth Once a day (in the evening) Unchanged propranolol (propranolol 20 mg oral tablet) 0.5 tab(s) by mouth Two (2) times a day Please take this list to your next doctor s visit. Bring all medications you take, including over the counter medications, herbals and other supplements with you to your doctor s visit. Patients and families are reminded to discard old lists and to update any records with all medication providers or retail pharmacies. Medication Leaflets ondansetron (oral) (on LAUREEN hein) Carlos Gonzalez Zuplenz What is the most important information I should know about ondansetron? You should not use ondansetron if you are also using apomorphine (Apokyn). What is ondansetron? Ondansetron blocks the actions of chemicals in the body that can trigger nausea and vomiting. Ondansetron is used to prevent nausea and vomiting that may be caused by surgery, cancer chemotherapy, or radiation treatment. Ondansetron may be used for purposes not listed in this medication guide. What should I discuss with my health care provider before taking ondansetron? You should not use ondansetron if: you are also using apomorphine (Apokyn); or you are allergic to ondansetron or similar medicines (dolasetron, granisetron, palonosetron). To make sure ondansetron is safe for you, tell your doctor if you have: liver disease; an electrolyte imbalance (such as low levels of potassium or magnesium in your blood); congestive heart failure, slow heartbeats; a personal or family history of long QT syndrome; or a blockage in your digestive tract (stomach or intestines). Ondansetron is not expected to harm an unborn baby. Tell your doctor if you are . It is not known whether ondansetron passes into breast milk or if it could harm a nursing baby. Tell your doctor if you are breast-feeding a baby. Ondansetron is not approved for use by anyone younger than 4 years old. Ondansetron orally disintegrating tablets may contain phenylalanine. Tell your doctor if you have phenylketonuria (PKU). How should I take ondansetron? Follow all directions on your prescription label. Do not take this medicine in larger or smaller amounts or for longer than recommended. Ondansetron can be taken with or without food. The first dose of ondansetron is usually taken before the start of your surgery, chemotherapy, or radiation treatment. Follow your doctor's dosing instructions very carefully. Take the ondansetron regular tablet with a full glass of water. To take the orally disintegrating tablet (Zofran ODT): Keep the tablet in its blister pack until you are ready to take it. Open the package and peel back the foil. Do not push a tablet through the foil or you may damage the tablet. Use dry hands to remove the tablet and place it in your mouth. Do not swallow the tablet whole. Allow it to dissolve in your mouth without chewing. Swallow several times as the tablet dissolves. To use ondansetron oral soluble film (strip) (Zuplenz): Keep the strip in the foil pouch until you are ready to use the medicine. Using dry hands, remove the strip and place it on your tongue. It will begin to dissolve right away. Do not swallow the strip whole. Allow it to dissolve in your mouth without chewing. Swallow several times after the strip dissolves. If desired, you may drink liquid to help swallow the dissolved strip. Wash your hands after using Zuplenz. Measure liquid medicine with the dosing syringe provided, or with a special dose-measuring spoon ormedicine cup. If you do not have a dose-measuring device, ask your pharmacist for one. Store at room temperature away from moisture, heat, and light. Store liquid medicine in an upright position. What happens if I miss a dose? Take the missed dose as soon as you remember. Skip the missed dose if it is almost time for your next scheduled dose. Do not take extra medicine to make up the missed dose. What happens if I overdose? Seek emergency medical attention or call the Poison Help line at . Overdose symptoms may include sudden loss of vision, severe constipation, feeling light-headed, or fainting. What should I avoid while taking ondansetron? Ondansetron may impair your thinking or reactions. Be careful if you drive or do anything that requires you to be alert. What are the possible side effects of ondansetron? Get emergency medical help if you have signs of an allergic reaction: rash, hives; fever, chills, difficult breathing; swelling of your face, lips, tongue, or throat. Call your doctor at once if you have: severe constipation, stomach pain, or bloating; headache with chest pain and severe dizziness, fainting, fast or pounding heartbeats; fast or pounding heartbeats; jaundice (yellowing of the skin or eyes); blurred vision or temporary vision loss (lasting from only a few minutes to several hours); high levels of serotonin in the body--agitation, hallucinations, fever, fast heart rate, overactivereflexes, nausea, vomiting, diarrhea, loss of coordination, fainting. Common side effects may include: diarrhea or constipation; headache; drowsiness; or tired feeling. This is not a complete list of side effects and others may occur. Call your doctor for medical advice about side effects. You may report side effects to FDA at 5-252-PTO-2926. What other drugs will affect ondansetron? Ondansetron can cause a serious heart problem, especially if you use certain medicines at the same time, including antibiotics, antidepressants, heart rhythm medicine, antipsychotic medicines, and medicines to treat cancer, malaria, HIV or AIDS. Tell your doctor about all medicines you use, and those you start or stop using during your treatment with ondansetron. Taking ondansetron while you are using certain other medicines can cause high levels of serotonin to build up in your body, a condition called 'serotonin syndrome,' which can be fatal. Tell your doctor if you also use: medicine to treat depression; medicine to treat a psychiatric disorder; a narcotic (opioid) medication; or medicine to prevent nausea and vomiting. This list is not complete and many other drugs can interact with ondansetron. This includes prescription and ynch-wcg-rebayhn medicines, vitamins, and herbal products. Give a list of all your medicines to any healthcare provider who treats you. Where can I get more information? Your pharmacist can provide more information about ondansetron. Remember, keep this and all other medicines out of the reach of children, never share your medicines with others, and use this medication only for the indication prescribed. Every effort has been made to ensure that the information provided by [employer]. [employer]') is accurate, up-to-date, and complete, but no guarantee is made to that effect. Drug information contained herein may be time sensitive. [employer] information has been compiled for use by healthcare practitioners and consumers in the [place] and therefore [employer] does not warrant that uses outside of the [place] are appropriate, unless specifically indicated otherwise. [employer] drug information does not endorse drugs, diagnose patients or recommend therapy. [employer] drug information isan informational resource designed to assist licensed healthcare practitioners in caring for their p atients and/or to serve consumers viewing this service as a supplement to, and not a substitute for, the expertise, skill, knowledge and judgment of healthcare practitioners. The absence of a warningfor a given drug or drug combination in no way should be construed to indicate that the drug or drug combination is safe, effective or appropriate for any given patient. [employer] does not assume any responsibility for any aspect of healthcare administered with the aid of information [employer] provides. The information contained herein is not intended to cover all possible uses, directions, precautions, warnings, drug interactions, allergic reactions, or adverse effects. If you have questions about the drugs you are taking, check with your doctor, nurse or pharmacist. Copyright 7023-3476 [employer]. Version: 13.01. Revision Date: 03/18/2016. acetaminophen and oxycodone (a SEET a MIN oh fen and OX i KOE done) Endocet 10/325, Endocet 2.5/325, Endocet 5/325, Endocet 7.5/325, Nalocet, Percocet, Primlev What is the most important information I should know about acetaminophen and oxycodone? MISUSE OF OPIOID MEDICINE CAN CAUSE ADDICTION, OVERDOSE, OR . Keep the medication in a place where others cannot get to it. Taking opioid medicine during may cause life-threatening withdrawal symptoms in the . Fatal side effects can occur if you use opioid medicine with alcohol, or with other drugs that cause drowsiness or slow your breathing. Stop taking this medicine and call your doctor right away if you have skin redness or a rash that spreads and causes blistering and peeling. What is acetaminophen and oxycodone? Acetaminophen and oxycodone is a combination medicine used to relieve moderate to severe pain. Acetaminophen and oxycodone contains an opioide medicine and may be habit-forming. Acetaminophen and oxycodone may also be used for purposes not listed in this medication guide. What should I discuss with my healthcare provider before taking acetaminophen and oxycodone? You should not use this medicine if you are allergic to acetaminophen or oxycodone, or if you have: severe asthma or breathing problems; or a blockage in your stomach or intestines. Tell your doctor if you have ever had: breathing problems, sleep apnea; liver disease; a drug or alcohol addiction; kidney disease; a head injury or seizures; urination problems; or problems with your thyroid, pancreas, or gallbladder. If you use opioid medicine while you are , your baby could become dependent on the drug. This can cause life-threatening withdrawal symptoms in the baby after it is born. Babies born dependent on opioids may need medical treatment for several weeks. Ask a doctor before using opioid medicine if you are . Tell your doctor if you notice severe drowsiness or slow breathing in the nursing baby. How should I take acetaminophen and oxycodone? Follow all directions on your prescription label. Never take this medicine in larger amounts, or for longer than prescribed. An overdose can damage your liver or cause . Tell your doctor if you feel an increased urge to use more of this medicine. Never share opioid medicine with another person, especially someone with a history of drug abuse oraddiction. MISUSE CAN CAUSE ADDICTION, OVERDOSE, OR . Keep the medicine in a place where others cannot get to it. Selling or giving away opioid medicine is against the law. Measure liquid medicine carefully. Use the dosing syringe provided, or use a medicine dose-measuring device (not a kitchen spoon). If you need surgery or medical tests, tell the doctor ahead of time that you are using this medicine. You should not stop using this medicine suddenly. Follow your doctor's instructions about tapering your dose. Store at room temperature away from moisture and heat. Keep track of your medicine. You should be aware if anyone is using it improperly or without a prescription. Do not keep leftover opioid medication. Just one dose can cause in someone using this medicine accidentally or improperly. Ask your pharmacist where to locate a drug take-back disposal program.If there is no take-back program, flush the unused medicine down the toilet. What happens if I miss a dose? Since this medicine is used for pain, you are not likely to miss a dose. Skip any missed dose if itis almost time for your next dose. Do not use two doses at one time. What happens if I overdose? Seek emergency medical attention or call the Poison Help line at . An overdose of this medicine can be fatal, especially in a child or other person using the medicine without a prescription. Overdose symptoms may include nausea, vomiting, sweating, severe drowsiness, pinpoint pupils, slow breathing, or no breathing. Your doctor may recommend you get naloxone (a medicine to reverse an opioid overdose) and keep it with you at all times. A person caring for you can give the naloxone if you stop breathing or don't wake up. Your caregiver must still get emergency medical help and may need to perform CPR (cardiopulmonary resuscitation) on you while waiting for help to arrive. Anyone can buy naloxone from a pharmacy or local health department. Make sure any person caring foryou knows where you keep naloxone and how to use it. What should I avoid while taking acetaminophen and oxycodone? Avoid driving or operating machinery until you know how this medicine will affect you. Dizziness ordrowsiness can cause falls, accidents, or severe injuries. Do not drink alcohol. Dangerous side effects or could occur. Ask a doctor or pharmacist before using any other medicine that may contain acetaminophen (sometimes abbreviated as APAP). Taking certain medications together can lead to a fatal overdose. What are the possible side effects of acetaminophen and oxycodone? Get emergency medical help if you have signs of an allergic reaction: hives; difficulty breathing; swelling of your face, lips, tongue, or throat. Opioid medicine can slow or stop your breathing, and may occur. A person caring for you should give naloxone and/or seek emergency medical attention if you have slow breathing with long pauses,blue colored lips, or if you are hard to wake up. In rare cases, acetaminophen may cause a severe skin reaction that can be fatal. This could occur even if you have taken acetaminophen in the past and had no reaction. Stop taking this medicine and call your doctor right away if you have skin redness or a rash that spreads and causes blistering andpeeling. Call your doctor at once if you have: noisy breathing, sighing, shallow breathing, breathing that stops; a light-headed feeling, like you might pass out; weakness, tiredness, fever, unusual bruising or bleeding; confusion, unusual thoughts or behavior; problems with urination; liver problems--nausea, upper stomach pain, tiredness, loss of appetite, dark urine, vince-colored stools, jaundice (yellowing of the skin or eyes); low cortisol levels-- nausea, vomiting, loss of appetite, dizziness, worsening tiredness or weakness; or high levels of serotonin in the body--agitation, hallucinations, fever, sweating, shivering, fast heart rate, muscle stiffness, twitching, loss of coordination, nausea, vomiting, diarrhea. Serious breathing problems may be more likely in older adults and in those who are debilitated or have wasting syndrome or chronic breathing disorders. Common side effects include: dizziness, drowsiness, feeling tired; feelings of extreme happiness or sadness; nausea, vomiting, stomach pain; constipation; or headache. This is not a complete list of side effects and others may occur. Call your doctor for medical advice about side effects. You may report side effects to FDA at 9-495-KBQ-9866. What other drugs will affect acetaminophen and oxycodone? You may have breathing problems or withdrawal symptoms if you start or stop taking certain other medicines. Tell your doctor if you also use an antibiotic, antifungal medication, heart or blood pressure medication, seizure medication, or medicine to treat HIV or hepatitis C. Opioid medication can interact with many other drugs and cause dangerous side effects or . Be sure your doctor knows if you also use: cold or allergy medicines, bronchodilator asthma/COPD medication, or a diuretic ('water pill'); medicines for motion sickness, irritable bowel syndrome, or overactive bladder; other opioids--opioid pain medicine or prescription cough medicine; a sedative like Valium--diazepam, alprazolam, lorazepam, Xanax, Klonopin, Versed, and others; drugs that make you sleepy or slow your breathing--a sleeping pill, muscle relaxer, medicine to treat mood disorders or mental illness; drugs that affect serotonin levels in your body--a stimulant, or medicine for depression, Parkinson's disease, migraine headaches, serious infections, or nausea and vomiting. This list is not complete. Other drugs may affect acetaminophen and oxycodone, including prescription and efwn-uax-mvxrkgb medicines, vitamins, and herbal products. Not all possible interactions are listed here. Where can I get more information? Your doctor or pharmacist can provide more information about acetaminophen and oxycodone. Remember, keep this and all other medicines out of the reach of children, never share your medicines with others, and use this medication only for the indication prescribed. Every effort has been made to ensure that the information provided by [employer]. ('[employer]') is accurate, up-to-date, and complete, but no guarantee is made to that effect. Drug information contained herein may be time sensitive. [employer] information has been compiled for use by healthcare practitioners and consumers in the [place] and therefore [employer] does not warrant that uses outside of the [place] are appropriate, unless specifically indicated otherwise. [facility] drug information does not endorse drugs, diagnose patients or recommend therapy. [facility] drug information isan informational resource designed to assist licensed healthcare practitioners in caring for their p atients and/or to serve consumers viewing this service as a supplement to, and not a substitute for, the expertise, skill, knowledge and judgment of healthcare practitioners. The absence of a warningfor a given drug or drug combination in no way should be construed to indicate that the drug or drug combination is safe, effective or appropriate for any given patient. [employer] does not assume any responsibility for any aspect of healthcare administered with the aid of information [employer] provides. The information contained herein is not intended to cover all possible uses, directions, precautions, warnings, drug interactions, allergic reactions, or adverse effects. If you have questions about the drugs you are taking, check with your doctor, nurse or pharmacist. Copyright 9205-6231 [employer]. Version: .. Revision Date: 07/03/2020. sulfamethoxazole and trimethoprim (oral/injection) (SUL fa meth OX a zole and trye METH oh prim) Bactrim, Bactrim DS, SMZ-TMP DS, Sulfatrim Pediatric What is the most important information I should know about sulfamethoxazole and trimethoprim? Use only as directed. Tell your doctor if you use other medicines or have other medical conditions or allergies. What is sulfamethoxazole and trimethoprim? Sulfamethoxazole and trimethoprim is a combination antibiotic used to treat ear infections, urinarytract infections, bronchitis, traveler's diarrhea, shigellosis, and Pneumocystis jiroveci pneumonia. Sulfamethoxazole and trimethoprim may also be used for purposes not listed in this medication guide. What should I discuss with my healthcare provider before using sulfamethoxazole and trimethoprim? You should not use this medicine if you are allergic to sulfamethoxazole or trimethoprim, or if youhave: severe liver disease; kidney disease that is not being treated or monitored; anemia (low red blood cells) caused by folic acid deficiency; a history of low blood platelets after taking trimethoprim or any sulfa drug; or if you take dofetilide. May cause defects. Do not use if you are . Tell your doctor if you become . Do not breastfeed. This medicine should not be given to a child younger than 2 months old. Tell your doctor if you have ever had: kidney or liver disease; a folate (folic acid) deficiency; asthma or severe allergies; HIV or AIDS; a thyroid disorder; malnourishment; alcoholism; an electrolyte imbalance (such as low blood sodium or high potassium); porphyria, or ttwftvy-5-wgzxglctx dehydrogenase (G6PD) deficiency; or if you use a blood thinner (such as warfarin) and you have routine 'INR' or prothrombin time tests. How should I use sulfamethoxazole and trimethoprim? Follow all directions on your prescription label and read all medication guides or instruction sheets. Use the medicine exactly as directed. Sulfamethoxazole and trimethoprim oral is taken by mouth. Shake the oral suspension (liquid). Measure a dose with the supplied measuring device (not a kitchen spoon). Sulfamethoxazole and trimethoprim injection is given in a vein. Be sure you understand how to properly mix this medicine with a liquid (diluent) and how to store the mixture. Ask your doctor or pharmacist if you don't understand how to use an injection. Prepare an injection only when you are ready to give it. Call your pharmacist if the medicine lookscloudy, has changed colors, or has particles in it. Mixed medicine must be used within 2 to 6 hours depending on the amount of diluent in the mixture. Follow your doctor's instructions. Do not refrigerate mixed medicine. Do not reuse a needle or syringe. Place them in a puncture-proof 'sharps' container and dispose of it following state or local laws. Keep out of the reach of children and pets. Drink plenty of fluids to prevent kidney stones. Antibiotic medicines can cause diarrhea. Tell your doctor if you have diarrhea that is watery or bloody. Keep using this medicine even if your symptoms quickly improve. Skipping doses could make your infection resistant to medication. Sulfamethoxazole and trimethoprim will not treat a viral infection (flu or a common cold). You may need blood and urine tests, and this medicine may be stopped based on the results. Store at room temperature away from moisture, heat, and light. Do not refrigerate. What happens if I miss a dose? Use the medicine as soon as you can, but skip the missed dose if it is almost time for your next dose. Do not use two doses at one time. What happens if I overdose? Seek emergency medical attention or call the Poison Help line at . Overdose symptoms may include loss of appetite, vomiting, fever, blood in your urine, yellowing of your skin or eyes, confusion, or loss of consciousness. What should I avoid while using sulfamethoxazole and trimethoprim? If you use the injection form of this medicine, do not eat or drink anything that contains propylene glycol (an ingredient in many processed foods, soft drinks, and medicines). Dangerous effects could occur. Sulfamethoxazole and trimethoprim could make you sunburn more easily. Avoid sunlight or tanning beds. Wear protective clothing and use sunscreen (SPF 30 or higher) when you are outdoors. What are the possible side effects of sulfamethoxazole and trimethoprim? Get emergency medical help if you have signs of an allergic reaction (hives, cough, chest pain, shortness of breath, swelling in your face or throat) or a severe skin reaction (fever, sore throat, burning eyes, skin pain, red or purple skin rash with blistering and peeling). Seek medical treatment if you have a serious drug reaction that can affect many parts of your body.Symptoms may include: skin rash, fever, swollen glands, joint pain, muscle aches, severe weakness, pale skin, unusual bruising, or yellowing of your skin or eyes. Call your doctor at once if you have: severe stomach pain, diarrhea that is watery or bloody (even if it occurs months after your last dose); any skin rash, no matter how mild; yellowing of your skin or eyes; a seizure; new or unusual joint pain; increased or decreased urination; swelling, bruising, or irritation around the IV needle; increased thirst, dry mouth, fruity breath odor; new or worsening cough, fever, trouble breathing; high blood potassium--nausea, weakness, tingly feeling, chest pain, irregular heartbeats, loss of movement; low blood sodium--headache, confusion, problems with thinking or memory, weakness, feeling unsteady; or low blood cell counts--fever, chills, mouth sores, skin sores, easy bruising, unusual bleeding, pale skin, cold hands and feet, feeling light-headed or short of breath. Common side effects may include: nausea, vomiting, loss of appetite; or skin rash. This is not a complete list of side effects and others may occur. Call your doctor for medical advice about side effects. You may report side effects to FDA at 2-996-XPF-9515. What other drugs will affect sulfamethoxazole and trimethoprim? You may need more frequent check-ups or medical tests if you also use medicine to treat depression,diabetes, seizures, or HIV. Tell your doctor about all your current medicines. Many drugs can affect sulfamethoxazole and trimethoprim, especially: amantadine, digoxin, cyclosporine, indomethacin, leucovorin, methotrexate, procainamide, pyrimethamine; an 'KOMAL inhibitor' heart or blood presure medication (benazepril, enalapril, lisinopril, quinapril,ramipril, and others); or a diuretic or 'water pill'. This list is not complete and many other drugs may affect sulfamethoxazole and trimethoprim. This includes prescription and wiyr-pfz-jhbejbb medicines, vitamins, and herbal products. Not all possibledrug interactions are listed here. Where can I get more information? Your pharmacist can provide more information about sulfamethoxazole and trimethoprim. Remember, keep this and all other medicines out of the reach of children, never share your medicines with others, and use this medication only for the indication prescribed. Every effort has been made to ensure that the information provided by [employer]. [employer]') is accurate, up-to-date, and complete, but no guarantee is made to that effect. Drug information contained herein may be time sensitive. [employer] information has been compiled for use by healthcare practitioners and consumers in the [place] and therefore [employer] does not warrant that uses outside of the [place] are appropriate, unless specifically indicated otherwise. [facility] drug information does not endorse drugs, diagnose patients or recommend therapy. [facility] drug information isan informational resource designed to assist licensed healthcare practitioners in caring for their p atients and/or to serve consumers viewing this service as a supplement to, and not a substitute for, the expertise, skill, knowledge and judgment of healthcare practitioners. The absence of a warningfor a given drug or drug combination in no way should be construed to indicate that the drug or drug combination is safe, effective or appropriate for any given patient. [employer] does not assume any responsibility for any aspect of healthcare administered with the aid of information [employer] provides. The information contained herein is not intended to cover all possible uses, directions, precautions, warnings, drug interactions, allergic reactions, or adverse effects. If you have questions about the drugs you are taking, check with your doctor, nurse or pharmacist. Copyright 5065-5456 [employer]. Version: .. Revision Date: 01/25/2021. Education Materials Kidney Infection (Adult Female) An infection in one or both kidneys is called pyelonephritis. It usually happens when bacteria (or rarely, viruses, fungi, or other disease-causing organisms) get into the kidney. The bacteria (or other disease-causing organisms) can enter the kidneys from the bladder or blood traveling from other parts of the body. A kidney infection can become serious. It can cause severe illness, scarring ofthe kidneys, or kidney failure if not treated properly. Common causes for this problem include: Not keeping the genital area clean and dry, which promotes the growth of bacteria Wiping back to front which drags bacteria from the rectum toward the urinary opening (urethra) Wearing tight pants or underwear (this lets moisture build up in the genital area, which helps bacteria grow) Holding urine in for long periods of time Dehydration Kidney infections can cause symptoms similar to a bladder infection. Symptoms include: Pain (or burning) when urinating Having to urinate more often than usual Blood in the urine (pink or red) Abdominal pain or discomfort, usually in the lower abdomen Pain in the side or back Pain above the pubic bone Fever or chills Vomiting Loss of appetite Treatment is oral antibiotics, or in more severe cases, intramuscular or IV antibiotics. These are started right away and may be changed once urine culture results determine the infecting organisms. Treatment helps prevent a more serious kidney infection. Medicines Medicines can help in the treatment of a bladder infection: Take antibiotics until they are used up, even if you feel better. It is important to finish them tomake sure the infection is gone. Unless another medicine was prescribed, you can use jtgh-qmd-hfbwddx medicines for pain, fever, or discomfort. If you have chronic liver of kidney disease, talk with your healthcare provider before using these medicines. Also talk with your provider if you've ever had a stomach ulcer or gastrointestinal (GI) bleeding, or are taking blood thinners. Home care The following are general care guidelines: Stay home from work or school. Rest in bed until your fever breaks and you are feeling better, or as advised by your healthcare provider. Drink lots of fluid unless you must restrict fluids for other medical reasons. This will force the medicine into your urinary system and flush the bacteria out of your body. Ask your healthcare provider how much you should drink. Don't have sex until you have finished all of your medicine and your symptoms are gone. Don't have caffeine, alcohol, or spicy foods. These foods may irritate the kidneys and bladder. Don't take bubble baths. Sensitivity to the chemicals in bubble baths can irritate the urethra. Make sure you wipe from front to back after using the toilet. Wear loose cloths and cotton underwear. Prevention These self-care steps can help prevent future infections: Drink plenty of fluids to prevent dehydration and flush out the bladder. Do this unless you must restrict fluids for other health reasons, or your healthcare provider told you not to. Proper cleaning after going to the bathroom in important. Make sure you wipe from front to back after using the toilet. Urinate more often. Don't try to hold urine in for a long time. Don't wear tight-fitting pants and underwear. Improve your diet to prevent constipation. Eat more fruits, vegetables, and fiber. Eat less junk and fatty foods. Constipation can make a urinary tract infection more likely. Talk with your healthcare provider if you have trouble with bowel movements. Urinate right after intercourse to flush out the bladder. Follow-up care Follow up with your healthcare provider, or as advised. Additional testing may be needed to make sure the infection has cleared. Close follow-up and further testing is very important to find the cause and to prevent future infections. If a urine culture was done, you will be contacted if your treatment needs to be changed. If directed, you may call to find out the results. If you had an X-ray, CT scan, or other diagnostic test, you will be notified of any new findings that may affect your care. Call 911 Call 911 if any of the following occur: Trouble breathing Fainting or loss of consciousness Rapid or very slow heart rate Weakness, dizziness, or fainting Difficulty arousing or confusion When to seek medical advice Call your healthcare provider right away if any of these occur: Fever 100.4 F (38 C) or higher, or as directed by your healthcare provider Not feeling better within 1 to 2 days after starting antibiotics Any symptom that continues after 3 days of treatment Increasing pain in the stomach, back, side, or groin area Repeated vomiting Not able to take prescribed medicine due to nausea or another reason Bloody, dark-colored, or foul smelling urine Trouble urinating or decreased urine output No urine for 8 hours, no tears when crying, sunken eyes, or dry mouth [id number] [employer]. [address] [place] [address]. All rights reserved. This information is not intended as a substitute for professional medical care. Always follow yourhealthcare professional's instructions. Additional Information VACCINATE! IT SAVES LIVES! Members of the community who have not yet received the COVID-19 vaccine and would like to receive it can visit one of [facility] vaccine clinics. There are many vaccine clinic locations within the [facility]. For locations and available times, please visit [email or web address] It is important to note that some COVID mobile vaccine clinics are held outdoors and may be canceled in rainy or stormy conditions. To learn more about pediatric vaccinations (ages 5-11), we invite you to visit the [facility] webpage. [email or web address] learn more about the COVID-19 vaccine, we invite you to visit the CDC website for a list of frequently asked questions. https://www.cdc.gov/coronavirus/2019-ncov/vaccines/faq.html [facility] Patient Portal Access Instructions: Stay connected with your healthcare team and access your personal medical information anytime with the [facility] Patient Portal. If you would like a full copy of your medical records please contact the [facility] Medical Records Department Monday through Monday between 8a.m. and 4:30p.m. Please follow the directions below to access the portal: 1.Access the email account you provided upon registration to the [facility].2.Look for an invitation email from [facility].3.Open the email and access the invitation link: Accept Invitation to [facility]4.Fill in the required hartley to create your account. Sign into [email or web address] with your username and password that you created in the above steps to stay up to date. You can then view a summary of results, a summary of your visits, and the ability to download your summaries to your computer or send the information securely to a physician. Remember that your healthcare information is confidential, so carefully consider who you will allow to register on the [facility] Patient Portal for access to your information. You can also access the [facility] Patient Portal on the [employer]. Simply click on Health Records under [employer] and then click on the [employer] logo. HOW TO SAFELY DISPOSE OF PRESCRIPTION MEDICATIONS Please use one of the following methods to safely dispose of your unused medications. 1.Use a drug disposal kit: the drug disposal pouch allows you to safely discard your old and unuseddrugs. Ask your nurse to give you one when you are discharged.2.Visit a local take-back location: Many local pharmacies and police departments have programs that collect old and unwanted prescriptiondrugs. Call your local pharmacy or go to http://bit.[employer]/3S1Tk9f to find one close to you.3.Make use of household items: Use cat litter or old coffee grounds to dispose medications if other options arenot available. Mix your drugs with these household products, seal them in an airtight container andthrow it into the garbage. Call [facility]: [phone] to be sure your drugs can be disposed of in this way. Some medicines may require a different approach.4.Never flush your medications down the toilet. IF YOU HAVE BEEN PRESCRIBED AN OPIOIDS FOR PAIN If you have been prescribed an opioid (such as hydrocodone, oxycodone or morphine), it is critical to understand the possible side effects and risks of opioid pain medications. Even when taken as directed, opioids can have several side effects including: Tolerance, meaning you might need to take more of a medication for the same pain relief. Nausea, vomiting and/or constipation. Sleepiness, dizziness, dry mouth, confusion, depression or itching. Physical dependence, meaning you have withdrawal symptoms when a medication is stopped ? this can develop within a few days. KNOW YOUR RESPONSIBILITIES It is important to know exactly how much and how often to take the opioid pain medications you are prescribed. Never take opioids in higher amounts or more often than prescribed. Do not combine opioids with alcohol or other drugs that cause drowsiness, such as benzodiazepines, also known as benzos,including diazepam and alprazolam, muscle relaxants or sleep aids. Never sell or share prescriptionopioids. This is illegal. Store opioids in a secure place and out of reach of others (including children, family, friends and visitors). The last page(s) of this document has been signed and retained as a CHART COPY Signatures Patient Education Materials Pyelonephritis, Female (Adult) Medication Leaflets ondansetron (oral), acetaminophen and oxycodone, sulfamethoxazole and trimethoprim (oral/injection) My discharge plan and instructions have been reviewed and explained to me and IUVALDO ANGELA Lunderstand my current condition and have read and understand these discharge instructions. I have received a written copy of the plan/instructions. If I have questions, I am aware that I should contact my doctor. 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06-27-2023 Note ORIGINAL EXAMINATION: CT OF THE ABDOMEN AND PELVIS WITHOUT CONTRAST 11/22/2022 1:50 am TECHNIQUE: CT of the abdomen and pelvis was performed without the administration of intravenous contrast. Multiplanar reformatted images are provided for review. Automated exposure control, iterative reconstruction, and/or weight based adjustment of the mA/kV was utilized to reduce the radiation dose to as low as reasonably achievable. COMPARISON: CT abdomen and pelvis on 02/15/2022 HISTORY: ORDERING SYSTEM PROVIDED HISTORY: Reason for Exam: abdominal pain FINDINGS: Lower Chest: No acute findings. Organs: The liver, post cholecystectomy biliary tree, pancreas, spleen, and the adrenal glands show no sign of abnormality. There is a 4 mm nonobstructing right intrarenal stone. There is no hydronephrosis or ureteral stone. GI/Bowel: The stomach and duodenum are unremarkable. There is an ostomy in the left mid abdomen with peristomal hernia sac that measures up to 10 cm in diameter (previously 6 cm). There is loop of colon that protrudes into the hernia sac without obstruction or inflammation. There is diverticulosis of the colon without signs of diverticulitis. No free intraperitoneal air or abnormal fluid collection is present in the abdomen. Pelvis: The urinary bladder has a suprapubic catheter in place. Urinary bladder is collapsed with moderate bladder wall thickening that appears unchanged. Air in the urinary bladder is likely associated with the catheter. Uterus and adnexal structures are unremarkable. There is no abnormal fluid collection in the pelvis. Peritoneum/Retroperitoneum: Abdominal aorta is nonaneurysmal. There is no retroperitoneal lymph node enlargement. Bones/Soft Tissues: Lumbar spine spina bifida is noted. No acute osseous abnormality is detected. There is a small umbilical hernia without signs of complication. IMPRESSION: Moderate peristomal hernia is slightly increased in size since 02/15/2022 but without signs of intestinal obstruction or inflammation. Right nephrolithiasis. No ureteral stone. Urinary bladder wall thickening with suprapubic catheter in place. This is unchanged and likely due to collapse of the bladder. Recommend correlation with urinalysis. No sign of acute abdominal process. Interpreted by: Oc Mae MD Preliminary Report By: Oc Mae MD Electronically signed By Oc Mae MD Dictated Date: 11/22/2022 1:59:06 AM Prelim Date: 11/22/2022 2:06:56 AM Sign Date: 11/22/2022 2:06:56 AM Ordering Provider: BRADY DOMINGUEZ [facility]06-27-2023 Note ORIGINAL EXAMINATION: CT OF THE ABDOMEN AND PELVIS WITHOUT CONTRAST 11/22/2022 1:50 am TECHNIQUE: CT of the abdomen and pelvis was performed without the administration of intravenous contrast. Multiplanar reformatted images are provided for review. Automated exposure control, iterative reconstruction, and/or weight based adjustment of the mA/kV was utilized to reduce the radiation dose to as low as reasonably achievable. COMPARISON: CT abdomen and pelvis on 02/15/2022 HISTORY: ORDERING SYSTEM PROVIDED HISTORY: Reason for Exam: abdominal pain FINDINGS: Lower Chest: No acute findings. Organs: The liver, post cholecystectomy biliary tree, pancreas, spleen, and the adrenal glands show no sign of abnormality. There is a 4 mm nonobstructing right intrarenal stone. There is no hydronephrosis or ureteral stone. GI/Bowel: The stomach and duodenum are unremarkable. There is an ostomy in the left mid abdomen with peristomal hernia sac that measures up to 10 cm in diameter (previously 6 cm). There is loop of colon that protrudes into the hernia sac without obstruction or inflammation. There is diverticulosis of the colon without signs of diverticulitis. No free intraperitoneal air or abnormal fluid collection is present in the abdomen. Pelvis: The urinary bladder has a suprapubic catheter in place. Urinary bladder is collapsed with moderate bladder wall thickening that appears unchanged. Air in the urinary bladder is likely associated with the catheter. Uterus and adnexal structures are unremarkable. There is no abnormal fluid collection in the pelvis. Peritoneum/Retroperitoneum: Abdominal aorta is nonaneurysmal. There is no retroperitoneal lymph node enlargement. Bones/Soft Tissues: Lumbar spine spina bifida is noted. No acute osseous abnormality is detected. There is a small umbilical hernia without signs of complication. IMPRESSION: Moderate peristomal hernia is slightly increased in size since 02/15/2022 but without signs of intestinal obstruction or inflammation. Right nephrolithiasis. No ureteral stone. Urinary bladder wall thickening with suprapubic catheter in place. This is unchanged and likely due to collapse of the bladder. Recommend correlation with urinalysis. No sign of acute abdominal process. Interpreted by: Oc Mae MD Preliminary Report By: Oc Mae MD Electronically signed By Oc Mae MD Dictated Date: 11/22/2022 1:59:06 AM Prelim Date: 11/22/2022 2:06:56 AM Sign Date: 11/22/2022 2:06:56 AM Ordering Provider: [facility]06-23-2023 History of Present illness Narrative* Patrick Ghosh RN - 11/18/2022 4:53 PM EDT Images from the original note were not included. ET/WOCN Nursing Consult Topic: ET/WOCN Consultation Note ET Outcome: Pt came to see CLOTILDE Marx in the clinic today. Pt and her c/o her stoma is swelling. When assessed stoma, there were skin irritation and stoma trauma noted. (see picture at the junction from 7-10 o'clock area laceration. ) Adjusted pouching system as below. ET's Next Scheduled Visit: as needed. Stoma Type: End descending colostomy Diameter:1 5/8 x 2 Location: LUQ Protrusion: Budded Mucosal condition and color: Red and moist and edematous Mucocutaneous junction laceration noted from 7-10 o'clock. Otherwise intact Peristomal Skin: Erythema Location of Skin Impairment: circumferentially around stoma. Peristomal contour: Rounded Supportive Tissue: Semisoft Character of output: Thick brown stool Emptying frequency per day: 0-1 times per day Current pouching system: Amplify.LA New Image 2 3/4 convex flange, closed end pouch. No accessories. Current wearing time: 3-4 days for flange, pouch daily Recommendations: Skin Care: Antifungal powder as needed. stomahesive powder to erythema and stoma injury site, No Sting Liquid Skin Barrier Pouching System: changed to flat flange. [place] New Image 2 3/4 flat flange cut opening 1/8 larger than stom, strip paste (or moldable ring), drainable pouch (or closed end pouch) Wear Time: flange 3-4 days Other: Provided Hy tape (waterproof tape) for beach vacation. Midline Abdominal Incision: Healed scar Comment: instructed to get 2% miconazole powder for fungal rashes before vacation. Time Increment: 1 hour CISCO MyersN RN CWOCN [facility] nursing pager [phone] (M-F 7a-4p, Sat, Sun, Holiday 7a-3p) * Patrick Ghosh RN - 11/18/2022 4:17 [place] [address] Patient: Debby Bailon Patient Address: [address] [place] [address] Preferred Gender: female Date of : 1980 Type of Stoma: End Descending Colostomy Diagnosis: Constipation K59.0 OSTOMY SUPPLY ORDER FORM Pouch: [place]: 2 3/4 closed end pouch #93749 30 day use - 60 pouches Wafer: Ton: New Image CeraPlus 2 3/4 Flat, with tape # 43513 30 day use - 10 flanges ( 2 boxes) Adhesive Removers: [place] [employer] [place] #7737 30 day use - 1 can Paste: Coloplast Brava Strip Paste # 73538 30 day use - 1 Box Powder: ConvaTec Stomahesive # 32053 30 day use - 1 Bottle Skin Sealant: 3M No Sting, 30/Box # 7854 30 day use - 1 Box Antifungal powder: Coloplast Microguard powder #3997 30 day use - 1 Bottle as needed. Refills: 11 Attending Physician: Dr. López: Office [phone] For immediate authorization, please contact the physician s office. [facility] Nurse: TOMMY Luna, CWOCN Note: You can buy 2% Miconazole powder from over the counter. SIGNATURE: Patrick Ghosh RN PATIENT NAME: Debby Bailon DATE: November 18, 2022 TIME: 4:17 PM CONTACT #: [phone] documented in this encounterOur Lady Of Mercy [facility]06-23-2023 Instructions* Patient Instructions* Araseli Renae APRN.BURIAL AGENT - 11/18/2022 3:52 PM EDT Follow pouching instructions from stoma team Take 2 senna and MOM of daily for 3 weeks until follow up Follow up in 3 weeks for stoma check Call with any questions or concerns. documented in this encounterOur Lady Of Mercy Hospital06-23-2023 History of Present illness Narrative* Araseli Renae APRN.CNP - 11/18/2022 3:00 PM EDT COLORECTAL SURGERY Follow-up November 18, 2022 Chief complaint: Stoma issues HPI: Patient states that that her ostomy has been fluctuating from constipation to diarrhea. She will sometimes have small glen and other times will have loose stool. She appears to be taking MOM only when constipated and then stopping when she is having loose stool. As far as stoma irritation she ishaving pain around stoma site she thinks she may be needing a new pouching system today. Physical Exam: Ht 154.9 cm (5' 1) Wt 94.3 kg (208 lb) LMP 10/20/2022 (Approximate) BMI 39.30 kg/m General - awake, alert, no acute distress Abdominal - soft non-tender, stoma present in LLQ and is beefy red, there is on medial aspect a cutfrom the bag. See ET nursing note for suggestions on new pouching system. Anorectal: deferred Circuit Rider present: Yes Assessment Medical Decision Making: Assessment & Diagnosis: Debby Bailon is a 42 year old female with PMHx of constipation s/p colostomy creation is heretoday for evaluation of stoma pain and infrequent output. Patient for constipation will do MOM daily with 2 senna despite any loose stool in bag. Patient will follow ET nurse note for pouching suggestions and follow up in 3 weeks after they return from vacation. Patient and agreeable to plan. Araseli Renae APRN.CNP Risk of morbidity, mortality and/or complications of treatment plan: low documented in this encounterOur Lady Of Mercy Hospital06-20-2023 Miscellaneous Notes* Telephone Encounter - Regina Colvin RN - 11/15/2022 1:49 PM EDT SPECIALTY CARE COORDINATION FOLLOW-UP NOTE Spoke to Debby. States that she has a colostomy. Her stool is alternating back and forth between hard stool and diarrhea. She admits that her weight is fluctuating between 196-210lbs. She has a history of hernia. Se states that the stoma is swollen and prolapse. She denies pushing the stoma back in. She says that she iseating, drinking and has been taking MOM per Dr. López recommendation. She has agreed to send pictures of the stoma to show size, bleeding of the stoma, and pain at the stoma site. Discussed cutting the appropriate size for the pouching system. She says that he has to talk to her to bring her to the Clinic to be evaluated by LEAD INSPECTOR and stoma therapy for correct pouching system and sizing. Asked that she call the office back at [phone] to make those appointments in the next day or so. She states she understands and thanked me for the phone call. Signature Regina Colvin RN November 15, 2022 documented in this encounterOur Lady Of Mercy Hospital06-06-2023 Miscellaneous Notes* Telephone Encounter - Naty Haddad LPN - 11/01/2022 4:45 PM EDT Faxed order for leg bags to [facility]. Naty Haddad LPN documented in this encounterOur Lady Of Mercy Hospital06-06-2023 History of Present illness Narrative* Naty Haddad LPN - 11/01/2022 3:44 PM EDT CC Supra pubic catheter in Place HPI: Debby Bailon is a 41 year old female. The patient is here now for a supra pubic catheter change with diagnosis neurogenic bladder. Procedure: Performed a catheter change. Removed fluid from balloon in the cook. The indwelling supra pubic cook size 18 Fr was removed with catheter tip intact without difficulty. Inserted 18 Fr catheter using aseptic technique. Approximately 5 mL cloudy urine return. Irrigated with 60 mL 0.9% sodium chloride. Approximately 60 mLs light yellow urine with some sediment throughout noted. Bulb inflated with 10 mLs prefilled syringe- sterile water. T-Sponge applied to SPT base per patient preference attached to drainage bag. The patient tolerated the procedure well. Patient does not like tubing secured. Patient requested order for leg bag due to being more active. Would like sent to [facility]. Cory notified. Assessment/Plan: Successful catheter change. Return for catheter changes as planned. Scheduled for annual visit with provider and to have cathter changed in November. Naty Haddad LPN documented in this encounterOur Lady Of Mercy Hospital05-12-2023 History of Present illness Narrative* Josesito Verdin LPN - 10/07/2022 8:49 AM EDT Scan on 10/07/2022 1:49 AM by External Provider, [place]: Consultation - Emergency Medicine documented in this encounterOur Lady Of Mercy Hospital05-09-2023 History of Present illness Narrative* Naty Haddad LPN - 10/04/2022 3:44 PM EDT CC Supra pubic catheter in Place HPI: Debby Bailon is a 41 year old female. The patient is here now for a supra pubic catheter change with diagnosis neurogenic bladder. Procedure: Performed a catheter change. Removed fluid from balloon in the cook. The indwelling supra pubic cook size 18 Fr was removed with catheter tip intact without difficulty. Inserted 18 Fr catheter using aseptic technique. No return. Irrigated with 50 mL sterile water due to patient desire to not have 60 mL instilled. Approximately 60 mLs light yellow urine with some sediment throughout noted. Patient reports that she has been drinking a lot of water. Bulb inflated with 10 mLs prefilled syringe- sterile water. T-Sponge applied to SPT base per patient preference attached to drainage bag. The patient tolerated the procedure well. Patient does not like tubing secured. Assessment/Plan: Successful catheter change. Return for catheter changes as planned. Naty Haddad LPN documented in this encounterOur Lady Of Mercy Hospital04-11-2023 History of Present illness Narrative* Naty Haddad LPN - 09/06/2022 3:38 PM EDT CC Supra pubic catheter in Place HPI: Debby Bailon is a 41 year old female. The patient is here now for a supra pubic catheter change with diagnosis neurogenic bladder. Procedure: Performed a catheter change. Removed fluid from balloon in the cook. The indwelling supra pubic cook size 18 Fr was removed with catheter tip intact without difficulty. Inserted 18 Fr catheter using aseptic technique. No return. Irrigated with 60 mL sterile water without difficulties. Approximately 60 mLs light yellow urine with some sediment throughout noted. Bulb inflated with 10 mLs prefilled syringe- sterile water. T-Sponge applied to SPT base per patient preference attached to drainage bag. The patient tolerated theprocedure well. Patient does not like tubing secured. Assessment/Plan: Successful catheter change. Return for catheter changes as planned. Naty Haddad LPN documented in this encounterOur Lady Of Mercy Hospital04-07-2023 History of Present illness Narrative* Josesito Verdin LPN - 09/02/2022 9:51 AM EDT Scan on 09/01/2022 4:13 PM by External Provider: Consultation - Endocrinology documented in this encounterOur Lady Of Mercy Hospital04-05-2023 Miscellaneous Notes* Telephone Encounter - Jeannie Ashley - 08/31/2022 1:40 PM EDT Called PT LVM to call back and schedule US and yearly diabetic eye exam. Jeannie BHAGAT * Telephone Encounter - Keiry Clifton - 08/27/2022 1:58 PM EDT Rang busy. * Telephone Encounter - Denae Monk MA - 08/25/2022 12:02 PM EDT Please schedule patient for Ultrasound of Thyroid. Dr. Rae for yearly diabetic eye exam. Denae Monk MA documented in this encounterOur Lady Of Mercy Hospital04-05-2023 Miscellaneous Notes* Telephone Encounter - Jerad Dowell MA - 08/31/2022 9:00 AM EDT Patient notified and verbalized understanding. Pt scheduled to see Dr. Monson tomorrow, 09/01/22 Jerad Dowell MA * Telephone Encounter - Will Brannon MD - 08/30/2022 9:51 PM EDT Let patient know her recent labs were ok except her blood sugars are poorly controlled with an A1c of 10.2. needs to get in contact with DR. 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 documented in this encounterOur Lady Of Mercy Hospital03-22-2023 History of Present illness Narrative* Denae Monk MA - 08/17/2022 11:45 AM EDT Scan on 08/16/2022 6:12 PM by External Provider: Consultation - Emergency Medicine Scan on 08/16/2022 6:01 PM by External Provider: X-ray Denae Monk MA documented in this encounterOur Lady Of Mercy Hospital03-07-2023 History of Present illness Narrative* Naty Haddad LPN - 08/02/2022 3:43 PM EST CC Supra pubic catheter in Place HPI: Debby Bailon is a 41 year old female. The patient is here now for a supra pubic catheter change with diagnosis neurogenic bladder. Patient reports she just had SPT catheter changed by Dr. Sears two weeks ago but was told to keep appointment today as well. Patient states plan is to get urostomy once she gets it scheduled with Dr. Sears. Procedure: Performed a catheter change. Removed fluid from balloon in the cook. The indwelling supra pubic cook size 18 Fr was removed with catheter tip intact without difficulty. Inserted 18 Fr catheter using aseptic technique. No return. Irrigated with 60 mL sterile water without difficulties. Approximately 60 mLs yellow urine with some sediment throughout noted. Bulb inflated with 10 mLs prefilled syringe- sterile water. T- Sponge applied to SPT base per patient preference attached to drainage bag. The patient tolerated the procedure well. Assessment/Plan: Successful catheter change. Return for catheter changes as planned. Naty Haddad LPN documented in this encounterOur Lady Of Mercy Hospital02-22-2023 Procedure note* Farhat Sears MD - 07/20/2022 4:05 PM EST PHYSICIAN'S NOTE: Procedure: Cystoscopy Epic notes reviewed: yes Interval history:feels like she has bladder stones Diagnosis: Bladder stone Informed consent obtained yes. Discussed RBAPC. TECHNIQUE: The procedure was fully explained to the patient, risks were reviewed. The patient was placed in the supine position. The genitalia were prepped with betadine, and the urethra was anesthetized with viscous 2% lidocaine. The flexible cystoscope was introduced into the SPT site and advanced under direct vision with findings as outlined below. At the conclusion of the procedure, the cystoscope was withdrawn. FINDINGS Urethra: did not assess Bladder: bladder is small, no lesions except mucosa edema from SPT, no stones. COMPLICATIONS: None RECOMMENDATIONS: The only alt to what shes doing now would be C/IC. Disc again with her. She would need to get her BS under a little better control and heal her foot. She will dw her and LMK.All Q answered Placed a new 18F latex-free SPT and inflated balloon w 8 cc POST PROCEDURE Condition: satisfactory Medications:on abx Farhat Sears MD documented in this encounterOur Lady Of Mercy Hospital02-22-2023 History of Present illness Narrative* TIGIST Haywood - 07/20/2022 2:39 PM EST UNIVERSAL PROTOCOL / SAFETY CHECKLIST Procedure to be Performed: cysto Sign In: A Moment of CARE was completed. Personnel directly involved with the procedure wore the appropriate PPE (Personal Protective Equipment). Patient/Surrogate Stated/Verified: PATIENT VERIFIED(optional for EMERGENT procedures): Patient name, Date of , Relevant allergies, and The intended procedure Time Out Communication: Intended patient and procedure match the source documents. Consent documented and matches the intended procedure. Sign Out: SIGN OUT (optional for EMERGENT procedures): No specimen collected. TIGIST Haywood documented in this encounterOur [facility] Nurse Note* TIGIST Haywood - 07/20/2022 1:14 PM EST Actual procedure/procedure scheduled: Yes Performing provider/scheduled provider: Yes Patient was roomed in: Q9- 05 Patient arrived in the room at: [address] Sears at 1323 re: if we were going through SPT or urethra Came up to Q9 at 1338 and answered questions from CT Patient ready for procedure: [address] Sears came out of UROD room, this CT notified her that her pt was ready. She statedthat she needed to go back downstairs to see another pt who was waiting. The procedure started at ( Time Only): 1427 The procedure ended at: 1431 Was the procedure delayed: Yes: Patient in Wheelchair and Provider late The patient left the procedure room at: 1438 TIGIST Haywood PRE PROCEDURE ASSESSMENT- Cysto Procedure Indication: Cystoscopy Latex Allergy: Yes Allergies reviewed and updated. Yes Heart valve replacement: No Joint replacement: No Back Office UA otained: no, pt with SPT PROCEDURE PREP-Cysto Patient ID with two(2)identifiers verified by: TIGIST Haywood Pre-Procedure Antibiotics: Bactrim, doxycycline, and flagl Taken prior to appt at 1230 Patient Prep: Betadine Scrub to perineum and placement of Sterile Drape. COMPLETED to SPT site Anesthetic Given:None TIGIST Haywood UNIVERSAL PROTOCOL / SAFETY CHECKLIST Procedure to be performed: Cystoscopy Sign in Communication: Completed Time Out: Team Confirms the Correct Patient, Correct Procedure, Correct Site and Site Marking, Correct Position (if applicable). Sign Out Discussion: Completed TIGIST Haywood POST PROCEDURE NURSE ASSESSMENT Present along with physician during procedure exam. TIGIST Haywood Instruction sheet given and reviewed and patient verbalizes understanding: yes Post Procedure Antibiotic: none Current pain intensity is 0 on a 0-10 pain scale. TIGIST Haywood AMBULATORY PATIENT EDUCATION THE FOLLOWING WAS EVALUATED Motivation To Learn: Interested Family/Significant Other Support: Unable to assess - Family not present Cognitive Ability: Alert/Oriented Method of Instruction: Individual instruction Written instruction - handouts The Following Influencing Factors Were Barriers To This Education Session: None The Following Physical Limitations Were Barriers To This Education Session: None Instruction Provided To: Patient Marine Erector Present: no Discipline: Nursing Learning Topic: SURVIVAL SKILLS: Symptom Management Patient Evaluation: Verbalizes understanding: Yes Supplemental Material Given: Written Material Instructed By TIGIST Haywood In Department Urology . 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 Patient last seen by SAVANA Kendrick on 06/13 at that time patient reported that on prior SPT exchange she had crystallization of the catheter tubing. Patient reports that previously this crystallization was associated with bladder stones and patient was referred for further evaluation. Historyof constipation s/p colostomy 09/2021 - no issues with stools. Takes milk of magnesia intermittentlynot frequently. Patient last seen by Dr. Sears on 11/10/2020 in which patient underwent cystolithalopaxy. Interval history- Reports issues with irrigations with SPT being clogged intermittently. No crystalization was noted on exchange in June, however there was difficulty in placement due to resistance. Reports significant sediment - white milky discharge in urine - similar to when prior bladder s tones were diagnosed. Denies dysuria, frequency, urgency. Recently hospitalized for active osteomyelitis s/p debridement on 07/15/12. Was on IV abx from 07/12-07/18 and Sent home on PO antibiotics (3 different ones). Last CONNIE - with borderline right cortical thinning. Scr stable at 0.5-0.7. PAST MEDICAL HISTORY Diagnosis Date Anxiety Arthritis started age 19 Bilateral leg edema 07/16/2018 Cervical radiculopathy 05/02/2013 Chronic pain 02/12/2015 Cyst of ovary 11/28/2011 Diabetic eye exam (HCC) 06/17/2016 Last done: 01/25/2017 Diabetic eye exam (HCC) 06/17/2016 Last done: 03/08/2019 DJD (degenerative joint disease), thoracic DM (diabetes mellitus), secondary, uncontrolled, w/renal complications 12/05/2017 Dysthymic disorder Depression (non-psychotic), sees [facility] at [facility]. Elevated LFTs 03/11/2020 Essential hypertension 02/21/2019 Fatty liver 03/11/2020 US 10/2019 History of kidney stones 01/04/2016 History of recurrent UTIs 11/28/2011 Hydronephrosis, right 01/04/2016 Lipomeningocele, sacral level 09/12/2013 Lumbago 02/12/2015 Medicare annual wellness visit, subsequent 02/28/2018 last done: 02/28/2018 Migraine without aura and without status migrainosus, not intractable 10/18/2016 Miscarriage Mixed hyperlipidemia 02/28/2018 Morbid obesity (HCC) 02/12/2015 Muscle weakness of left lower extremity 08/07/2013 Neck pain 05/02/2013 Neurogenic bladder 02/12/2015 Neurogenic bowel 01/06/2016 Neuropathy 02/12/2015 post back surgery with secondary infection. Seeing Dr. Gregg Numbness and tingling of left arm and leg 08/07/2013 Obesity, Class III, BMI >= 40 08/23/2018 Panic attacks Paroxysmal SVT (supraventricular tachycardia) (HCC) 07/03/2017 Per 48 Hr event monitor 06/30/2017 Primary insomnia 02/17/2016 S/P hernia repair 12/11/2017 Spina bifida (HCC) 01/06/2016 Suprapubic catheter (HCC) Thyroid cyst 01/01/2018 Complex right sided cysts. US 12/2017, biopsy per Dr. Josue 01/23/2018 benign. Repeat US in a year. 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) 10/18/2016 Type 2 diabetes mellitus with hyperglycemia, with long-term current use of insulin (HCC) 07/26/2021 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) 02/19/2016 Ulcer of left foot (HCC) 02/21/2017 Ventral hernia without obstruction or gangrene Weakness of both upper extremities 08/07/2013 Chronic PAST SURGICAL HISTORY Procedure Laterality Date 2D ECHO (EXEP) 06/28/2017 EF=65%. nl AMPUTATION TOE,MT-P JT Left 02/11/2020 left big toe CATH, SUPRAPUBIC/CYSTOSCOPIC 11/07/2018 CYSTOSCOPY,REMV CALCULUS,COMPLIC 11/10/2020 DILATION & CURETTAGE DX&/THER NONOBSTETRIC Dilation & curettage HERNIA REPAIR W/MESH 2019 LEXISCAN STRESS TEST 07/20/2018 negative NUCLEAR STRESS LEXISCAN (CARD) 10/24/2018 negative PAST SURGICAL HISTORY OF 2010 cholecystectomy PAST SURGICAL HISTORY OF 09/2012 back surgery x2 PAST SURGICAL HISTORY OF Left & 02/2014 foot x2 PAST SURGICAL HISTORY OF 07/2015 Bowles stoma PAST SURGICAL HISTORY OF 09/30/2021 Laparoscopic end colostomy REPAIR UMBILICAL HERNIA 12/11/2017 STRESS ECHO 12/09/2019 Negative STRESS TEST 07/18/2017 normal STRESS TEST 03/15/2018 negative Social History Tobacco Use Smoking status: Never Smokeless tobacco: Never Vaping Use Vaping Use: Never used Substance Use Topics Alcohol use: Not Currently Comment: social Drug use: Never Current Outpatient Medications on File Prior to Visit Medication Sig busPIRone (BUSPAR) 15 mg tablet Take 15 mg by mouth. insulin lispro (HUMALOG KWIKPEN) 100 unit/mL Inject subcutaneously. phenazopyridine (PYRIDIUM, GERIDIUM) 200 mg tablet TWICE DAILY NEEDED acetaminophen (TYLENOL) 500 mg tablet Take 650 mg by mouth. magnesium hydroxide (MOM) 400 mg/5 mL suspension Take 30 mL by mouth every 6 hours. (Patient takingdifferently: Take 30 mL by mouth every 6 hours. Takes every six hours as needed) insulin glargine (LANTUS SOLOSTAR U-100 INSULIN) 100 unit/mL (3 mL) Inject 33 Units subcutaneously daily at bedtime. E11.65 insulin aspart, niacinamide, (FIASP FLEXTOUCH U-100 INSULIN) 100 unit/mL (3 mL) pen Inject 18 Unitssubcutaneously three times daily before meals. (Includes SS # 2 QAC -> Per Endo, Dr. Monson) MAX TDD = 55 UNITS / DAY. E11.65 glimepiride (AMARYL) 2 mg tablet Take 1 tablet by mouth twice daily with meals. Per Umm: Dr. Monson lisinopril (ZESTRIL, PRINIVIL) 5 mg tablet Take 1 tablet by mouth once daily. Per Dr. Ermias Salomon loratadine (CLARITIN) 10 mg tablet Take 1 tablet by mouth once daily. atorvastatin (LIPITOR) 80 mg tablet Take 1 tablet by mouth once daily. furosemide (LASIX) 40 mg tablet Take 1 tablet by mouth once daily. Take in morning oxybutynin ER (DITROPAN XL) 15 mg 24 hr Extended Rel Tab Take 1 tablet by mouth once daily. propranolol (INDERAL) 20 mg tablet Take 1 tablet by mouth twice daily. traZODone (DESYREL) 100 mg tablet Take 1 tablet by mouth daily at bedtime. furosemide (LASIX) 20 mg tablet Take 20 mg by mouth daily at bedtime. sodium chloride irrig solution (NACL 0.9% IRRIGATION BOTTLE) To use for catheter irrigation daily or as needed. Insulin [place], Disposable, (COMFORT EZ PEN NEEDLES) 29 gauge x 1/2 One needle with each lantus shot once a day. Dx: E13.29 on insulin PSEUDOEPHEDRINE HCL ORAL Take 30 mg by mouth as needed. ondansetron orally disintegrating (ZOFRAN ODT) 8 mg disintegrating tablet 8 mg as needed. fluticasone (FLONASE) 50 mcg/actuation nasal spray Use 2 Sprays in each nostril once daily. Rinse mouth after use. Insulin [place], Disposable, 32 gauge x 5/16 ndle Use once daily with Victoza Lancets (ACCU-CHEK FASTCLIX) lancets Test blood sugar 2 times/day. Dx: Other DM Code E13.29 InsulinUse: No (Patient taking differently: Test blood sugar 2 times/day. Dx: Other DM Code E13.29 InsulinUse: No) COMPOUNDED PRESCRIPTION Stoma catheter tube. DX: Qo5.4 and K59.2 No current facility-administered medications on file prior to visit. ROS: Constitutional: negative Gastrointestinal: negative PHYSICAL EXAM: BP 103/72 (BP Site: Left Arm, BP Position: Sitting, BP Cuff Size: Regular Adult) Pulse 70 Ht 154.9 cm (5' 1) Wt 89.8 kg (198 lb) LMP 11/24/2021 (Exact Date) BMI 37.41 kg/m GENERAL: Wnl nutrition, no deformities, healthy appearing in wheelchair ABDOMEN: Soft, nontender, nondistended, no masses. 18Fr SPT in place draining well with clear yellow urine. 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 Symptoms similar to prior episode of bladder stones presenting for further evaluation of possible bladder stones. Recent CONNIE with no visualization of the bladder. - Add on for cystoscopy in HOPs today at 1:30PM Nelli Lew MD Attending Note I evaluated the patient and personally participated in the peters components. I agree with the resident's findings and plan as documented and have discussed the case and management of the patient's carewith the resident. Urine is clear and yet she still feels like she has a bladder stone. Upper tract imaging in line with prior- atrophy of hte R kidney has been ongoing >1 decade We discussed supravesic diversion, but she would need to get her A1c under 7 for that. Added for cysto today. Signature: Farhat Sears MD Date: 07/20/2022 Time: 1:03 PM documented in this encounterOur [facility] History of Present illness Narrative* Denae Monk MA - 07/18/2022 4:19 PM EST Scan on 07/15/2022 3:35 PM by External Provider: Miscellaneous Procedures Scan on 07/15/2022 7:01 PM by External Provider: X-ray Please review Denae Monk MA documented in this encounterOur [facility]-20-[address] Encarnacion [facility] July 18, 2022 1:57pm Note Date/Time July 18, 2022 1:57pm [facility] Medical Records Department [address] [place] [id number] Discharge Summary 07/18/22 1356 MR#: [id number] Acct: [id number] Name: DEBBY BAILON Rep #:[id number] : 1980 41 From: Rigo Encarnacion DO PCP: Dr. Will Brannon MD Status:ADM IN Location: [place] [address] Providers Date of Admission: 07/13/22 Primary Care Physician: Dr. Will Brannon MD Consultations 07/13/22 04:39 Consult: Onc/Wound/conservation technician Routine Comment: Reason for Consult:: diabetic foot wound, left foot cellulitis Consult: Podiatry Routine Consulting Provider: Will Guo Reason for Consult: left foot cellulitis EMERGENT Consult: No MD Notified: Yes Date Notified: 07/13/22 Time Notified: 08:39 Method of Notification: via phone 07/13/22 16:10 Consult: Infectious Disease Routine Consulting Provider: Bev Ngo Reason for Consult: Osteomyelitis of the left foot EMERGENT Consult: No MD Notified: Yes Date Notified: 07/13/22 Time Notified: 16:10 Method of Notification: Verbal Reason For Visit: REFRACTORY CELLULITIS Diagnosis Discharge Diagnosis (1) Foot osteomyelitis, left: Status: Acute Code(s): M86.9 - Osteomyelitis, unspecified Plan: Osteomyelitis of the left tibial sesamoid tibial sesamoidectomy 07/15 wounds have been polymicrobial: S. smulans, group B strep, enterococcus faecalis, enterobacter cloacae on daptomycin and cefepime since 07/14 ID following: Recommending 1 more week of oral linezolid, Bactrim and metronidazole. Follow-up with podiatry Per podiatry: Nonweightbearing the left lower extremity. Will require VTE prophylaxis upon discharge. Dressing will be clean dressing dry and intact and will follow- up in 1 week. (2) Cellulitis of left lower limb: Status: Acute Code(s): L03.116 - Cellulitis of left lower limb Plan: treatment as above Plan Chronic conditions: * type 2 diabetes-blood sugars will be monitored, sliding scale insulin will be given as needed * chronic kidney disease stage III secondary to type 2 diabetes-patient's renal functions will be monitored as needed * paroxysmal supraventricular tachycardia-patient takes rate limiting medication at home, this will be continued * spina bifida-patient has a suprapubic catheter and colostomy, complicates care, medical course, recovery, and prognosis. VTE prophylaxis: SCDs Medications at Discharge Home Medications furosemide 20 mg tablet 20 mg PO 2200 fluid 08/28/18 furosemide 40 mg tablet 40 mg PO BREAKFAST fluid 04/05/19 oxybutynin chloride 15 mg tablet,extended release 24 hr 15 mg PO DAILY bladder 11/12/19 acetaminophen 500 mg tablet 1,000 mg PO TID PRN PRN Pain Or Fever 02/12/20 trazodone 100 mg tablet 100 mg PO QHS sleep 01/19/21 atorvastatin 80 mg tablet 80 mg PO DAILY cholesterol 01/29/21 insulin aspart (niacinamide)(U-100) 100 unit/mL(3 mL) subcutaneous pen 0 - 100 ml subcut PRN PRN Hyperglycemia 01/29/21 pen needle, diabetic 32 gauge x 5/32 (BD Ultra-Fine Hope Pen Needle) #400 ea 03/05/21 phenazopyridine 200 mg tablet (Pyridium) 200 mg PO BID PRN PRN Pain 11/20/21 glimepiride 2 mg tablet 2 mg PO BID #180 tabs 01/21/22 lisinopril 5 mg tablet 2.5 mg PO DAILY #90 tabs 01/21/22 propranolol 10 mg tablet 5 mg PO BID heart #30 tabs 01/21/22 ondansetron 4 mg disintegrating tablet 4 mg PO Q6H PRN nausea and vomiting #7 tabs 03/22/22 insulin glargine 100 unit/mL (3 mL) subcutaneous pen (Lantus Solostar U-100 Insulin) 33 unit subcut QHS dm 07/13/22 enoxaparin 40 mg/0.4 mL subcutaneous syringe 40 mg (0.4 mL) subcut DAILY #12 mL 07/18/22 linezolid 600 mg tablet 600 mg PO Q12H #14 tabs 07/18/22 metronidazole 500 mg tablet 500 mg PO TID #20 tabs 07/18/22 oxycodone 5 mg tablet 5 mg PO Q4H PRN PRN Pain Score 4-10 3 days #12 tabs 07/18/22 sulfamethoxazole 800 mg-trimethoprim 160 mg tablet (Bactrim DS) 1 tab PO BID 7 days #14 tabs 07/18/22 Hospital Course Operations - (tibial sesamoidectomy) Summary of Care Provided Minutes Spent on Discharge: 35 Weight / BMI Weight Weight: 93.7 kg Body Mass Index (BMI) 38.2 ABG / Lab / Microbiology Data Result Diagrams: 07/13/22 06:02 07/16/22 04:20 Microbiology: Microbiology 07/14/22 15:15 Bone - Left Foot Gram Stain - Final 07/14/22 15:15 Bone - Left Foot Wound Culture - Final Staphylococcus simulans 07/14/22 15:15 Bone - Left Foot Anaerobic Culture - Preliminary 07/15/22 15:23 Tissue - Left Foot Gram Stain - Final 07/15/22 15:23 Tissue - Left Foot Wound Culture - Preliminary Enterococcus faecalis Enterobacter cloacae complex Staphylococcus species 07/13/22 00:40 Blood Culture (Wb) - Right Forearm Blood Culture - Final No growth in 5 days. 07/13/22 09:00 Wound - Heel, Left Gram Stain - Final 07/13/22 09:00 Wound - Heel, Left Wound Culture - Final Gram positive sue Streptococcus agalactiae (B) Staphylococcus simulans 07/13/22 00:15 Blood Culture (Wb) - Anticubital Right Blood Culture - Final Streptococcus agalactiae (B) D/C Instructions Discharge Diet: No restrictions Weight Bearing Status: No weight bearing Keep extremity elevated above heart level: Left Leg Call your doctor if your incision/area has: Sudden Increased Bleeding, IncreasedPain/ Swelling, Increased Redness, Foul Smelling Discharge and Swelling at the incision site Call your doctor if you observe: Fever of 101 or Higher Cleanse incision/area with: Keep Dressing Clean & Dry Meaningful Use Info Meaningful Use Diagnoses (Choose all that apply): None applicable Discharge Plan Admission Admit Date/Time: 07/13/22 03:38 Primary Reason for Your Visit: left leg osteomyelitis and cellulitis Attending Provider: Rigo Encarnacion Primary Care Provider: Will Brannon Consulting Providers: Brittani Panda ; Bev Ngo ; Will Guo ; Quynh Boyer Instructions Additional Instructions / Restrictions: follow up in 1 week Discharge Orders/Prescriptions Prescriptions: New enoxaparin 40 mg/0.4 mL syringe 40 mg subcut DAILY Qty: 12 0RF metronidazole 500 mg tablet 500 mg PO TID Qty: 20 0RF linezolid 600 mg tablet 600 mg PO Q12H Qty: 14 0RF sulfamethoxazole-trimethoprim [Bactrim DS] 800-160 mg tablet 1 tab PO BID 7 Days Qty: 14 0RF oxycodone 5 mg Tablet 5 mg PO Q4H PRN PRN (Reason: Pain Score 4-10) 3 Days Qty: 12 0RF Continued insulin aspart (niacinamide) 100 unit/mL (3 mL) insulin pen 0 - 100 ml subcut PRN PRN (Reason: Hyperglycemia) Label Comments: Inject 8-18 Units subcutaneously three times daily before meals. (Includes SS# 2 QAC -> Pt. aware of details.) MAX TDD = 55 UNITS / DAY. E1 Rx Instructions: 15 PLUS SLIDING SCALE. atorvastatin 80 mg tablet 80 mg PO DAILY Label Comments: Take 1 tablet by mouth once daily. (DME) pen needle, diabetic [BD Ultra-Fine Hope Pen Needle] 32 gauge x 5/32 needle See Rx Instructions .ROUTE .MEDSUPPLY Qty: 400 6RF Rx Instructions: 4x/day furosemide 20 MG tablet 20 mg PO 2200 Hold Instructions: Resume on 11/24/21. Rx Instructions: 20 mg in the evening furosemide 40 MG tablet 40 mg PO BREAKFAST Hold Instructions: Resume on 11/24/21. oxybutynin chloride 15 mg tablet extended release 24hr 15 mg PO DAILY acetaminophen 500 MG tablet 1,000 mg PO TID PRN PRN (Reason: Pain Or Fever) trazodone 100 mg tablet 100 mg PO QHS Label Comments: Take 1 tablet by mouth daily at bedtime. phenazopyridine [Pyridium] 200 MG tablet 200 mg PO BID PRN PRN (Reason: Pain) glimepiride 2 mg tablet 2 mg PO BID Qty: 180 3RF Rx Instructions: Hold if glucose less than 130 mg/dl propranolol 10 MG tablet 5 mg PO BID Qty: 30 0RF Rx Instructions: Hold for heart less than 60 or systolic blood pressure less than 100 mmHg. lisinopril 5 mg tablet 2.5 mg PO DAILY Qty: 90 3RF Rx Instructions: Hold for SBP less than 130 mmHg ondansetron 4 mg tablet,disintegrating 4 mg PO Q6H PRN (Reason: nausea and vomiting) Qty: 7 0RF insulin glargine [Lantus Solostar U-100 Insulin] 100 unit/mL (3 mL) insulin pen 33 unit SC QHS Rx Instructions: Hold if glucose less than 130 mg/dl Discontinued ciprofloxacin HCl 750 mg tablet 750 mg PO BID 10 Days Qty: 20 0RF clindamycin HCl 300 mg capsule 300 mg PO 4X/DAY 10 Days Qty: 40 0RF Referrals / Follow Up: Xavier Wing DPM [Med Staff - Active Staff] - Within 1 Week Will Brannon MD [Primary Care Provider] - Within 2 Weeks Disposition Disposition (needs filled in before D/C Order can be placed): Home, Self Care Charges/Coding Visit Charges Inpatient E&M: 31993 Disch Hosp >30min 07/18/22 1357 <Electronically signed by Rigo Encarnacion DO> Cosigner Signature (if applicable): CC: Dr. Rigo Encarnacion DO; Dr. Will Brannon MD~ Signed [facility] Work Phone: [phone] 292-964402-20-[address] Encarnacion [facility] July 18, 2022 1:56pm Note Date/Time July 18, 2022 1:51pm [facility] Medical Records Department [address] [place] [address] Instructions for Home/Discharge Instructions 07/18/22 1349 MR#: [id number] Acct: [id number] Name: DEBBY BAILON Rep #:[id number] : 1980 41 From: Rigo Encarnacion DO PCP: Dr. Will Brannon MD Status:ADM IN Discharge Instructions Diet Discharge Diet: No restrictions Activity Discharge Activity: Return to Normal Activity Weight Bearing Status: No weight bearing Keep extremity elevated above heart level: Left Leg Dressing / Incision Call your doctor if your incision/area has: Sudden Increased Bleeding, IncreasedPain/ Swelling, Increased Redness, Foul Smelling Discharge and Swelling at the incision site Call your doctor if you observe: Fever of 101 or Higher Change Dressing in: 1 day Cleanse incision/area with: Keep Dressing Clean & Dry Follow Up Care Test Results: Test results from this visit will be discussed in further detail at your follow- up appointment, if applicable. Discharge Plan Admission Admit Date/Time: 07/13/22 03:38 Primary Reason for Your Visit: left leg osteomyelitis and cellulitis Attending Provider: Rigo Encarnacion Primary Care Provider: Will Brannon Consulting Providers: Brittani Panda ; Bev Ngo ; Will Guo ; Quynh Boyer Instructions Additional Instructions / Restrictions: follow up in 1 week Discharge Orders/Prescriptions Prescriptions: New enoxaparin 40 mg/0.4 mL syringe 40 mg subcut DAILY Qty: 12 0RF metronidazole 500 mg tablet 500 mg PO TID Qty: 20 0RF linezolid 600 mg tablet 600 mg PO Q12H Qty: 14 0RF sulfamethoxazole-trimethoprim [Bactrim DS] 800-160 mg tablet 1 tab PO BID 7 Days Qty: 14 0RF oxycodone 5 mg Tablet 5 mg PO Q4H PRN PRN (Reason: Pain Score 4-10) 3 Days Qty: 12 0RF Continued insulin aspart (niacinamide) 100 unit/mL (3 mL) insulin pen 0 - 100 ml subcut PRN PRN (Reason: Hyperglycemia) Label Comments: Inject 8-18 Units subcutaneously three times daily before meals. (Includes SS# 2 QAC -> Pt. aware of details.) MAX TDD = 55 UNITS / DAY. E1 Rx Instructions: 15 PLUS SLIDING SCALE. atorvastatin 80 mg tablet 80 mg PO DAILY Label Comments: Take 1 tablet by mouth once daily. (DME) pen needle, diabetic [BD Ultra-Fine Hope Pen Needle] 32 gauge x 5/32 needle See Rx Instructions .ROUTE .MEDSUPPLY Qty: 400 6RF Rx Instructions: 4x/day furosemide 20 MG tablet 20 mg PO 2200 Hold Instructions: Resume on 11/24/21. Rx Instructions: 20 mg in the evening furosemide 40 MG tablet 40 mg PO BREAKFAST Hold Instructions: Resume on 11/24/21. oxybutynin chloride 15 mg tablet extended release 24hr 15 mg PO DAILY acetaminophen 500 MG tablet 1,000 mg PO TID PRN PRN (Reason: Pain Or Fever) trazodone 100 mg tablet 100 mg PO QHS Label Comments: Take 1 tablet by mouth daily at bedtime. phenazopyridine [Pyridium] 200 MG tablet 200 mg PO BID PRN PRN (Reason: Pain) glimepiride 2 mg tablet 2 mg PO BID Qty: 180 3RF Rx Instructions: Hold if glucose less than 130 mg/dl propranolol 10 MG tablet 5 mg PO BID Qty: 30 0RF Rx Instructions: Hold for heart less than 60 or systolic blood pressure less than 100 mmHg. lisinopril 5 mg tablet 2.5 mg PO DAILY Qty: 90 3RF Rx Instructions: Hold for SBP less than 130 mmHg ondansetron 4 mg tablet,disintegrating 4 mg PO Q6H PRN (Reason: nausea and vomiting) Qty: 7 0RF insulin glargine [Lantus Solostar U-100 Insulin] 100 unit/mL (3 mL) insulin pen 33 unit SC QHS Rx Instructions: Hold if glucose less than 130 mg/dl Discontinued ciprofloxacin HCl 750 mg tablet 750 mg PO BID 10 Days Qty: 20 0RF clindamycin HCl 300 mg capsule 300 mg PO 4X/DAY 10 Days Qty: 40 0RF Referrals / Follow Up: Skillman,Xavier, DPM [Med Staff - Active Staff] - Within 1 Week Will Brannon MD [Primary Care Provider] - Within 2 Weeks Disposition Disposition (needs filled in before D/C Order can be placed): Home, Self Care 07/18/22 7986<Electronically signed by Rigo Encarnacion DO>Rigo Encarnacion DO CC: ERIC Guo; Dr. Will Brannon MD; Dr. Quynh Boyer DO; Dr. Brittani Panda MD; Dr. Bev Ngo MD ~ Signed [facility] Work Phone: [phone]) 339-875502-20-[address] Encarnacion [facility] July 18, 2022 1:49pm Note Date/Time July 18, 2022 8:46am [facility] Medical Records Department [address] [place] [address] Progress Note - Hospitalist 07/18/22 0840 MR#: [id number] Acct: [id number] Name: DEBBY BAILON Rep #:[id number] : 1980 41 From: Rigo Encarnacion DO PCP: Dr. Will Brannon MD Status:ADM IN [id number] Reason for Visit Reason for Visit: Diagnoses Type 2 diabetes mellitus with diabetic polyneuropathy (07/13/22) Type 2 diabetes mellitus with foot ulcer (07/13/22) Type 2 diabetes mellitus with hyperglycemia (07/13/22) Cellulitis of left lower limb (07/13/22) Non-pressure chronic ulcer of left heel and midfoot with fat layer exposed (07/13/22) Non-pressure chronic ulcer of other part of unspecified foot with unspecified severity (07/13/22) Non-pressure chronic ulcer of other part of left foot with fat layer exposed (07/13/22) Osteomyelitis, unspecified (07/13/22) Chronic kidney disease, unspecified (07/13/22) 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 Denies any current complaints. States that she has chronic paresthesias and neuropathy in her lower extremities but only feels it when painis very severe. Objective Data Objective Data Vital Signs: Vital Signs Temp Pulse Resp BP Pulse Ox O2 Del Method 36.4 C L 55 L 16 112/77 100 Room Air 07/18/22 07:53 07/18/22 07:53 07/18/22 07:53 07/18/22 07:53 07/18/22 07:53 07/18/22 07:54 Oxygen Delivery Method Room Air Weight: 93.7 kg Body Mass Index (BMI) 38.2 Intake & Output: Intake and Output for Last 24 Hours 07/16/22 07/17/22 07/18/22 23:59 23:59 23:59 Intake Total 2183.00 / 2683.00 2403.25 / 2403.25 300 / 300 Output Total 1150 / 1550 1550 / 1850 300 / 300 Balance 1033.00 / 1133.00 853.25 / 553.25 0 / 0 Lab / Micro Data Result Diagrams: 07/13/22 06:02 07/16/22 04:20 Micro: Microbiology 07/15/22 15:23 Tissue - Left Foot Gram Stain - Final 07/15/22 15:23 Tissue - Left Foot Wound Culture - Preliminary Enterococcus faecalis Enterobacter cloacae complex 07/14/22 15:15 Bone - Left Foot Gram Stain - Final 07/14/22 15:15 Bone - Left Foot Wound Culture - Preliminary Staphylococcus simulans 07/13/22 09:00 Wound - Heel, Left Gram Stain - Final 07/13/22 09:00 Wound - Heel, Left Wound Culture - Final Gram positive sue Streptococcus agalactiae (B) Staphylococcus simulans 07/13/22 00:40 Blood Culture (Wb) - Right Forearm Blood Culture - Preliminary No growth in 48 hours. 07/13/22 00:15 Blood Culture (Wb) - Anticubital Right Blood Culture - Final Streptococcus agalactiae (B) Physical Exam Const alert and no apparent distress HEENT head/scalp atraumatic Resp normal respiratory effort, no retractions, no use of accessory muscles and clearto auscultation bilaterally Cardio regular rate, regular rhythm, S1 normal heart sound and S2 normal heart sound GI normal to inspection, nondistended, normoactive bowel sounds, soft to palpation,non-tender and non-distended Extremity normal to inspection Neuro oriented x3 and CN's II-XII intact bilaterally Assessment & Plan Assessment/Plan (1) Foot osteomyelitis, left: PLAN: Osteomyelitis of the left tibial sesamoid tibial sesamoidectomy 07/15 wounds have been polymicrobial: S. smulans, group B strep, enterococcus faecalis, enterobacter cloacae on daptomycin and cefepime since 07/14 ID following: Recommending 1 more week of oral linezolid, Bactrim and metronidazole. Follow-up with podiatry Per podiatry: Nonweightbearing the left lower extremity. Will require VTE prophylaxis upon discharge. Dressing will be clean dressing dry and intact and will follow- up in 1 week. (2) Cellulitis of left lower limb: PLAN: treatment as above PLAN: Plan Chronic conditions: * type 2 diabetes-blood sugars will be monitored, sliding scale insulin will be given as needed * chronic kidney disease stage III secondary to type 2 diabetes-patient's renal functions will be monitored as needed * paroxysmal supraventricular tachycardia-patient takes rate limiting medication at home, this will be continued * spina bifida-patient has a suprapubic catheter and colostomy, complicates care, medical course, recovery, and prognosis. VTE prophylaxis: SCDs 07/18/22 1349 <Electronically signed by Rigo Encarnacion DO> Cosigner Signature (if applicable): CC: ~ Signed [facility] Work Phone: 1(329) 986-461502-20-[address] Ngo [facility] July 18, 2022 1:17pm Note Date/Time July 18, 2022 1:17pm [facility] Medical Records Department [address] [place] [address] Progress Note - Infect Disease 07/18/22 1315 MR#: [id number] Acct: [id number] Name: DEBBY BAILON Rep #:[id number] : 1980 41 From: Bev newton MD PCP: Dr. Will Brannon MD Status:ADM IN Location: [place] [id number] Physical Exam Narrative Feeling ok, no fever, no pain in foot, no n/v/d. Const alert and no apparent distress Resp normal air movement and clear to auscultation bilaterally Cardio regular rate and regular rhythm GI soft to palpation, non-tender and non-distended Skin Skin Narrative: foot wrapped ID ID: Route of nutrition/ use of supplements: [] Nutritional Intake: [] IV Site: [] Cook Catheter: [] Assessment & Plan Assessment/Plan (1) Diabetes mellitus with diabetic polyneuropathy: (2) Foot osteomyelitis, left: PLAN: Wound cx with enterococcus, enterobcater, CoNS, GBS, GPR. 07/15 had surgical I&D. Has tolerated cefepime and augmentin in the past. On dapto/cefepime/flagyl for now. Sesamoid bone removed, abscess drained, no other bone involvement seen. Ok for home with one more week po linezolid, bactrim, and flagyl with close podiatry followup. Will follow 07/18/22 1317 <Electronically signed by Bev Ngo MD> Cosigner Signature (if applicable): CC: ~ Signed [facility] Work Phone: 1(725) 592-556202-20-[address] Wing [facility] July 18, 2022 7:35am Note Date/Time July 18, 2022 7:35am [facility] Medical Records Department [address] [place] [address] Progress Note 07/18/22 0734 MR#: [id number] Acct: [id number] Name: DEBBY BAILON Rep #:[id number] : 1980 41 From: Xavier Wing DPM PCP: Dr. Will Brannon MD Status:ADM IN Location: [place] [address] Subjective Subjective PAtient 3 days post op. Denies constitutionals or pain today. No other complaints. Objective Data Objective Data Vital Signs: Vital Signs Temp Pulse Resp BP Pulse Ox O2 Del Method 97.3 F L 54 L 18 125/74 H 99 Room Air 07/18/22 04:58 07/18/22 04:58 07/18/22 04:58 07/18/22 04:58 07/18/22 04:58 07/18/22 04:58 Oxygen Delivery Method Room Air Weight: 93.7 kg Body Mass Index (BMI) 38.2 Intake & Output: Intake and Output for Last 24 Hours 07/16/22 07/17/22 07/18/22 23:59 23:59 23:59 Intake Total 2183.00 / 2683.00 2403.25 / 2403.25 200 / 200 Output Total 1150 / 1550 1550 / 1850 300 / 300 Balance 1033.00 / 1133.00 853.25 / 553.25 -100 / -100 Lab / Micro Data Result Diagrams: 07/13/22 06:02 07/16/22 04:20 Micro: Microbiology 07/15/22 15:23 Tissue - Left Foot Gram Stain - Final 07/15/22 15:23 Tissue - Left Foot Wound Culture - Preliminary Enterococcus faecalis Enterobacter cloacae complex 07/14/22 15:15 Bone - Left Foot Gram Stain - Final 07/14/22 15:15 Bone - Left Foot Wound Culture - Preliminary Staphylococcus simulans 07/13/22 09:00 Wound - Heel, Left Gram Stain - Final 07/13/22 09:00 Wound - Heel, Left Wound Culture - Final Gram positive sue Streptococcus agalactiae (B) Staphylococcus simulans 07/13/22 00:40 Blood Culture (Wb) - Right Forearm Blood Culture - Preliminary No growth in 48 hours. 07/13/22 00:15 Blood Culture (Wb) - Anticubital Right Blood Culture - Final Streptococcus agalactiae (B) Physical Exam Narrative dressing left clean, dry and intact to left foot. no evidence of DVT. Const alert, oriented x3 and no apparent distress Constitutional Narrative: Left foot ulcer sub 1st met head s/p debridement with healthy viable tissues down to subcutaneous tissue, left heel ulceration s/p debridement with healthy and viable tissues, down to subcutaneous tissue. Cellulitis left foot significantly improved. There is no pain to the left foot at this time, there ischronic peripheral neuropathy and diffuse weakness which is chronic. Vascular status intact bilateral foot. No open lesions right foot. Assessment & Plan Assessment/Plan (1) Non-pressure chronic ulcer of other part of left foot with fat layer exposed: PLAN: Exam performed patient 3 days post op Tibial sesamoid and tissue cultures growing staphyloccus species, awaiting finalID recs. I feel confident that infected tissue was removed with surgical debridement maintain NWB status left side, will need DVT prophylaxis on discharge. Patient has wheel chair and walker at home. upon d/c patient will keep dressing clean, dry and intact and will follow up in 1 week. (2) Foot osteomyelitis, left: (3) Type 2 diabetes mellitus with foot ulcer: 07/18/22 0735 <Electronically signed by Xavier Wing DPM> Xavier Wing DPM Cosigner Signature (if applicable): CC: ~ Signed [facility] Work Phone: 1(364) 418-295802-19-[address] Boyer [facility] July 17, 2022 6:00pm Note Date/Time July 17, 2022 6:00pm [facility] Medical Records Department [address] [place] [address] Progress Note - Hospitalist 07/17/22 1750 MR#: [id number] Acct: [id number] Name: DEBBY BAILON Rep #:[id number] : 1980 41 From: Quynh Boyer DO PCP: Dr. Will Brannon MD Status:ADM IN Location: [place] [id number] Reason for Visit Reason for Visit: Diagnoses Type 2 diabetes mellitus with diabetic polyneuropathy (07/13/22) Type 2 diabetes mellitus with foot ulcer (07/13/22) Type 2 diabetes mellitus with hyperglycemia (07/13/22) Cellulitis of left lower limb (07/13/22) Non-pressure chronic ulcer of left heel and midfoot with fat layer exposed (07/13/22) Non-pressure chronic ulcer of other part of unspecified foot with unspecified severity (07/13/22) Non-pressure chronic ulcer of other part of left foot with fat layer exposed (07/13/22) Osteomyelitis, unspecified (07/13/22) Chronic kidney disease, unspecified (07/13/22) 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 Infectious diseases will see the patient tomorrow to decide whether she needs to go home on IV versus oral antibiotics. Objective Data Objective Data Vital Signs: Vital Signs Temp Pulse Resp BP Pulse Ox O2 Del Method 97.9 F 65 16 115/66 100 Room Air 07/17/22 14:52 07/17/22 14:52 07/17/22 14:52 07/17/22 14:52 07/17/22 14:52 07/17/22 14:52 Oxygen Delivery Method Room Air Weight: 93.077 kg Body Mass Index (BMI) 38.2 Intake & Output: Intake and Output for Last 24 Hours 07/15/22 07/16/22 07/17/22 23:59 23:59 23:59 Intake Total 2551 / 2551 2183.00 / 2683.00 2303.25 / 2303.25 Output Total 2850 / 2850 1150 / 1550 1550 / 1550 Balance -299 / -299 1033.00 / 1133.00 753.25 / 753.25 Lab / Micro Data Result Diagrams: 07/13/22 06:02 07/16/22 04:20 Micro: Microbiology 07/15/22 15:23 Tissue - Left Foot Gram Stain - Final 07/15/22 15:23 Tissue - Left Foot Wound Culture - Preliminary Staphylococcus species 07/15/22 15:23 Tissue - Left Foot Anaerobic Culture - Preliminary 07/13/22 09:00 Wound - Heel, Left Gram Stain - Final 07/13/22 09:00 Wound - Heel, Left Wound Culture - Final Gram positive sue Streptococcus agalactiae (B) Staphylococcus simulans 07/14/22 15:15 Bone - Left Foot Gram Stain - Final 07/14/22 15:15 Bone - Left Foot Wound Culture - Preliminary Staphylococcus species 07/13/22 00:40 Blood Culture (Wb) - Right Forearm Blood Culture - Preliminary No growth in 48 hours. 07/13/22 00:15 Blood Culture (Wb) - Anticubital Right Blood Culture - Final Streptococcus agalactiae (B) Physical Exam Narrative alert, oriented x3 and no apparent distress General Appearance: cooperative, well kempt and well developed Orientation / Consciousness: awake, oriented to person, oriented to place and oriented to time HEENT normocephalic, head/scalp atraumatic and moist oral mucous membranes Eyes PERRL, EOMs intact bilaterally and conjunctivae normal Neck supple, no JVD and thyroid normal General: trachea midline Resp normal respiratory effort, no retractions, no use of accessory muscles and clearto auscultation bilaterally Auscultation: Negative for rales, rhonchi or wheezes Cardio regular rate, regular rhythm, no murmurs, no rub and no gallops GI normal to inspection, nondistended, normoactive bowel sounds, soft to palpation,non-tender and non-distended GI Narrative: There is a colostomy present as well as a suprapubic catheter Extremity Extremity Narrative: Patient's left foot was not examined today, it is wrapped with surgical dressing Neuro oriented x3, CN's II-XII intact bilaterally and no sensory deficits noted Sensorium / Orientation: awake, alert, oriented to person, oriented to place andoriented to time Speech: speech normal Psych affect normal Assessment & Plan Assessment/Plan (1) Foot osteomyelitis, left: PLAN: Plan 1. Osteomyelitis of the left foot-postop day #2 removal of sesamoid bone left foot, continue present antibiotics per infectious diseases, it is unknown whether the patient will have to be discharged home on IV versus oral antibiotics, I had talked with podiatry yesterday and they felt that the patient's sesamoid bone did not appear to be grossly infected at the time it wasremoved. #2 cellulitis of the left foot-again antibiotic coverage per infectious diseases, patient IV versus oral antibiotics will be decided by infectious diseases #3 type 2 diabetes-blood sugars will be monitored, sliding scale insulin will begiven as needed #4 chronic kidney disease stage III secondary to type 2 diabetes-patient's renalfunctions will be monitored as needed #5 paroxysmal supraventricular tachycardia-patient takes rate limiting medication at home, this will be continued #6 spina bifida-patient has a suprapubic catheter and colostomy, complicates care, medical course, recovery, and prognosis. Total clinical time spent by myself addressing the patient's medical issues, reviewing all the patient's data, and collaborating with patient's care team: 35minutes Charges/Coding Visit Charges Inpatient E&M: 55496 Subs Hosp L2 07/17/22 1800 <Electronically signed by Quynh Boyer DO> Cosigner Signature (if applicable): CC: ~ Signed [facility] Work Phone: 1(758) 328-630402-19-[address] Wing [facility] July 17, 2022 7:28am Note Date/Time July 17, 2022 7:28am [facility] Medical Records Department [address] [place] [address] Progress Note 07/17/22 0726 MR#: [id number] Acct: [id number] Name: DEBBY BAILON Rep #:[id number] : 1980 41 From: Xavier Wing DPM PCP: Dr. Will Brannon MD Status:ADM IN Location: [place] PX606-1 Subjective Subjective Patient seen resting comfortably bedside, mild pain - controlled. Denies constitutional symptoms. Denies chest pain, calf pain, shortness of breath. Noother complaints. Objective Data Objective Data Vital Signs: Vital Signs Temp Pulse Resp BP Pulse Ox O2 Del Method 98.1 F 66 16 109/73 100 Room Air 07/17/22 02:15 07/17/22 02:15 07/17/22 02:15 07/17/22 02:15 07/17/22 02:15 07/17/22 02:15 Oxygen Delivery Method Room Air Weight: 93.077 kg Body Mass Index (BMI) 38.2 Intake & Output: Intake and Output for Last 24 Hours 07/15/22 07/16/22 07/17/22 23:59 23:59 23:59 Intake Total 2551 / 2551 2183.00 / 2683.00 1207 / 1207 Output Total 2850 / 2850 1150 / 1550 850 / 850 Balance -299 / -299 1033.00 / 1133.00 357 / 357 Lab / Micro Data Result Diagrams: 07/13/22 06:02 07/16/22 04:20 Micro: Microbiology 07/13/22 09:00 Wound - Heel, Left Gram Stain - Final 07/13/22 09:00 Wound - Heel, Left Wound Culture - Preliminary Gram positive sue Streptococcus agalactiae (B) Staphylococcus simulans 07/14/22 15:15 Bone - Left Foot Gram Stain - Final 07/14/22 15:15 Bone - Left Foot Wound Culture - Preliminary No growth-Final to follow 07/15/22 15:23 Tissue - Left Foot Gram Stain - Final 07/13/22 00:40 Blood Culture (Wb) - Right Forearm Blood Culture - Preliminary No growth in 48 hours. 07/13/22 00:15 Blood Culture (Wb) - Anticubital Right Blood Culture - Final Streptococcus agalactiae (B) Physical Exam Narrative dressing left clean, dry and intact to left foot. no evidence of DVT. 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 Patient has wheel chair and walker at home. upon d/c patient will keep dressing clean, dry and intact and will follow up in 1 week. (2) Foot osteomyelitis, left: (3) Type 2 diabetes mellitus with foot ulcer: 07/17/22 0728 <Electronically signed by Xavier Wing DPM> Xavier Wing DPM Cosigner Signature (if applicable): CC: ~ Signed [facility] Work Phone: 1(265) 574-653902-18-[address] Boyer [facility] July 16, 2022 2:49pm Note Date/Time July 16, 2022 2:49pm [facility] Medical Records Department [address] [place] [address] Progress Note - Hospitalist 07/16/22 1444 MR#: [id number] Acct: [id number] Name: DEBBY BAILON Rep #:[id number] : 1980 41 From: Quynh Boyer DO PCP: Dr. Will Brannon MD Status:ADM IN [facility] Reason for Visit Reason for Visit: Diagnoses Type 2 diabetes mellitus with diabetic polyneuropathy (07/13/22) Type 2 diabetes mellitus with foot ulcer (07/13/22) Type 2 diabetes mellitus with hyperglycemia (07/13/22) Cellulitis of left lower limb (07/13/22) Non-pressure chronic ulcer of left heel and midfoot with fat layer exposed (07/13/22) Non-pressure chronic ulcer of other part of unspecified foot with unspecified severity (07/13/22) Non-pressure chronic ulcer of other part of left foot with fat layer exposed (07/13/22) Osteomyelitis, unspecified (07/13/22) Chronic kidney disease, unspecified (07/13/22) 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 Patient grew out a methicillin resistant staph from her wound, she is currently on antibiotics per infectious diseases. Objective Data Objective Data Vital Signs: Vital Signs Temp Pulse Resp BP Pulse Ox O2 Del Method 97.9 F 68 16 101/62 100 Room Air 07/16/22 11:02 07/16/22 11:02 07/16/22 11:02 07/16/22 11:02 07/16/22 11:02 07/16/22 11:02 Oxygen Delivery Method Room Air Weight: 93.2 kg Body Mass Index (BMI) 38.2 Intake & Output: Intake and Output for Last 24 Hours 07/14/22 07/15/22 07/16/22 23:59 23:59 23:59 Intake Total 801 / 1001 2551 / 2551 1369.75 / 1369.75 Output Total 1200 / 1500 2850 / 2850 800 / 800 Balance -399 / -499 -299 / -299 569.75 / 569.75 Lab / Micro Data Result Diagrams: 07/13/22 06:02 07/16/22 04:20 Labs: Laboratory Results - last 24 hr 07/13/22 09:00: S.aureus Protein A PCR POSITIVE H, MRSA (PCR) POSITIVE H 07/15/22 16:09: POC Glucose 156 H 07/16/22 04:20: Sodium 139, Potassium 3.6, Chloride 108 H, Carbon Dioxide 26.0, Anion Gap 5, BUN 10, Creatinine 0.79, Estim Creat Clear Calc 71.43, Est GFR (MDRD) Af Amer 104, Est GFR (MDRD) Non-Af 86, BUN/Creatinine Ratio 12.7, Crrkcqq926, Calcium 8.9, Total Bilirubin 0.30, AST 28, ALT 35, Alkaline Phosphatase 70,Total Creatine Kinase 25 L, Total Protein 7.1, Albumin 2.8 L, Globulin 4.3 H, Albumin/Globulin Ratio 0.7 L Micro: Microbiology 07/14/22 15:15 Bone - Left Foot Gram Stain - Final 07/14/22 15:15 Bone - Left Foot Wound Culture - Preliminary No growth-Final to follow 07/15/22 15:23 Tissue - Left Foot Gram Stain - Final 07/13/22 09:00 Wound - Heel, Left Gram Stain - Final 07/13/22 09:00 Wound - Heel, Left Wound Culture - Preliminary Gram positive sue Streptococcus agalactiae (B) Staphylococcus simulans 07/13/22 00:40 Blood Culture (Wb) - Right Forearm Blood Culture - Preliminary No growth in 48 hours. 07/13/22 00:15 Blood Culture (Wb) - Anticubital Right Blood Culture - Final Streptococcus agalactiae (B) Radiography Diagnostic Testing: Radiology Impression Foot X-Ray 07/15/22 14:25 IMPRESSION: undefined Physical Exam Narrative alert, oriented x3 and no apparent distress General Appearance: cooperative, well kempt and well developed Orientation / Consciousness: awake, oriented to person, oriented to place and oriented to time HEENT normocephalic, head/scalp atraumatic and moist oral mucous membranes Eyes PERRL, EOMs intact bilaterally and conjunctivae normal Neck supple, no JVD and thyroid normal General: trachea midline Resp normal respiratory effort, no retractions, no use of accessory muscles and clearto auscultation bilaterally Auscultation: Negative for rales, rhonchi or wheezes Cardio regular rate, regular rhythm, no murmurs, no rub and no gallops GI normal to inspection, nondistended, normoactive bowel sounds, soft to palpation,non-tender and non-distended GI Narrative: There is a colostomy present as well as a suprapubic catheter Extremity Extremity Narrative: Patient's left foot was not examined today, it is wrapped with surgical dressing Neuro oriented x3, CN's II-XII intact bilaterally and no sensory deficits noted Sensorium / Orientation: awake, alert, oriented to person, oriented to place andoriented to time Speech: speech normal Psych affect normal Assessment & Plan Assessment/Plan (1) Foot osteomyelitis, left: PLAN: Plan 1. Osteomyelitis of the left foot-postop day #1 removal of sesamoid bone left foot, continue present antibiotics per infectious diseases #2 cellulitis of the left foot-again antibiotic coverage per infectious diseases #3 type 2 diabetes-blood sugars will be monitored, sliding scale insulin will begiven as needed #4 chronic kidney disease stage III secondary to type 2 diabetes-patient's renalfunctions will be monitored as needed, patient's creatinine today was 0.79 #5 paroxysmal supraventricular tachycardia-patient takes rate limiting medication at home, this will be continued #6 spina bifida-patient has a suprapubic catheter and colostomy, complicates care, medical course, recovery, and prognosis. Total clinical time spent by myself addressing the patient's medical issues, reviewing all the patient's data, and collaborating with patient's care team: 36minutes Charges/Coding Visit Charges Inpatient E&M: 83942 Subs Hosp L2 07/16/22 1449 <Electronically signed by Quynh Boyer DO> Cosigner Signature (if applicable): CC: ~ Signed [facility] Work Phone: [phone]) [phone] Wing [facility] July 16, 2022 10:47am Note Date/Time July 16, 2022 10:47am [facility] Medical Records Department [address] [facility] [place] [address] Progress Note 07/16/22 1043 MR#: [id number] Acct: [id number] Name: DEBBY BAILON Rep #:[id number] : 1980 41 From: Xavier Wing DPM PCP: Dr. Will Brannon MD Status:ADM IN Location: [facility] [place] [id number] Subjective Subjective Patient seen resting comfortably bedside, mild pain - controlled. Denies constitutional symptoms. Denies chest pain, calf pain, shortness of breath. Noother complaints. Objective Data Objective Data Vital Signs: Vital Signs Temp Pulse Resp BP Pulse Ox O2 Del Method 97.9 F 61 16 114/70 100 Room Air 07/16/22 08:44 07/16/22 08:44 07/16/22 08:44 07/16/22 08:44 07/16/22 08:44 07/16/22 08:44 Oxygen Delivery Method Room Air Weight: 93.2 kg Body Mass Index (BMI) 38.2 Intake & Output: Intake and Output for Last 24 Hours 07/14/22 07/15/22 07/16/22 23:59 23:59 23:59 Intake Total 801 / 1001 2551 / 2551 701 / 701 Output Total 1200 / 1500 2850 / 2850 500 / 500 Balance -399 / -499 -299 / -299 201 / 201 Lab / Micro Data Result Diagrams: 07/13/22 06:02 07/16/22 04:20 Labs: Laboratory Results - last 24 hr 07/13/22 09:00: S.aureus Protein A PCR POSITIVE H, MRSA (PCR) POSITIVE H 07/15/22 13:50: POC Glucose 126 H 07/15/22 16:09: POC Glucose 156 H 07/16/22 04:20: Sodium 139, Potassium 3.6, Chloride 108 H, Carbon Dioxide 26.0, Anion Gap 5, BUN 10, Creatinine 0.79, Estim Creat Clear Calc 71.43, Est GFR (MDRD) Af Amer 104, Est GFR (MDRD) Non-Af 86, BUN/Creatinine Ratio 12.7, [id number], Calcium 8.9, Total Bilirubin 0.30, AST 28, ALT 35, Alkaline Phosphatase 70,Total Creatine Kinase 25 L, Total Protein 7.1, Albumin 2.8 L, Globulin 4.3 H, Albumin/Globulin Ratio 0.7 L Micro: Microbiology 07/14/22 15:15 Bone - Left Foot Wound Culture - Preliminary No growth-Final to follow 07/13/22 09:00 Wound - Heel, Left Gram Stain - Final 07/13/22 09:00 Wound - Heel, Left Wound Culture - Preliminary Gram positive sue Streptococcus agalactiae (B) Staphylococcus simulans 07/13/22 00:40 Blood Culture (Wb) - Right Forearm Blood Culture - Preliminary No growth in 48 hours. 07/13/22 00:15 Blood Culture (Wb) - Anticubital Right Blood Culture - Final Streptococcus agalactiae (B) Radiography Diagnostic Testing: Radiology Impression Foot X-Ray 07/15/22 14:25 IMPRESSION: undefined Physical Exam Narrative neurovascular status intact Incision to plantar left foot well approximated with intact sutures, resolving edema/erythema. Stable granular base to plantar left heel wound. No acute signs of infection. no evidence of DVT. Assessment & Plan Assessment/Plan (1) Non-pressure chronic ulcer of other part of left foot with fat layer exposed: PLAN: Exam patient 1 day post op awaiting final cultures and sensitivity, patient can likely d/c on PO abx as I feel infected tissue was adequately removed with surgery betadine paint, adaptic, DSD, komal wrap dressing applied maintain NWB status left side, will need DVT prophylaxis on discharge. Patient has wheel chair and walker at home. will follow up with patient tomorrow. (2) Foot osteomyelitis, left: (3) Type 2 diabetes mellitus with foot ulcer: 07/16/22 1047 <Electronically signed by Xavier Wing DPM> Xavier Wing DPM Cosigner Signature (if applicable): CC: ~ Signed [facility] Work Phone: 1(158) 455-113002-17-[address] Boyer [facility] July 15, 2022 7:37pm Note Date/Time July 15, 2022 7:30pm [facility] Medical Records Department [facility] [place] [address] Progress Note - Hospitalist 07/15/221928 MR#: [id number] Acct: [id number] Name: DEBBY BAILON Rep #:[id number] : 1980 41 From: Quynh Boyer DO PCP: Dr. Will Brannon MD Status:ADM IN Location: [place] [address] Reason for Visit Reason for Visit: Diagnoses Type 2 diabetes mellitus with diabetic polyneuropathy (07/13/22) Type 2 diabetes mellitus with foot ulcer (07/13/22) Type 2 diabetes mellitus with hyperglycemia (07/13/22) Cellulitis of left lower limb (07/13/22) Non-pressure chronic ulcer of left heel and midfoot with fat layer exposed (07/13/22) Non-pressure chronic ulcer of other part of unspecified foot with unspecified severity (07/13/22) Non-pressure chronic ulcer of other part of left foot with fat layer exposed (07/13/22) Osteomyelitis, unspecified (07/13/22) Chronic kidney disease, unspecified (07/13/22) 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 Objective Data Objective Data Vital Signs: Vital Signs Temp Pulse Resp BP Pulse Ox O2 Del Method 97.9 F 64 16 119/75 99 Room Air 07/15/22 17:15 07/15/22 17:15 07/15/22 17:15 07/15/22 17:15 07/15/22 17:15 07/15/22 17:47 Oxygen Delivery Method Room Air Weight: 91.7 kg Body Mass Index (BMI) 38.2 Intake & Output: Intake and Output for Last 24 Hours 07/13/22 07/14/22 07/15/22 23:59 23:59 23:59 Intake Total 2360.01 / 2600.01 801 / 1001 2111 / 2111 Output Total 1400 / 1800 1200 / 1500 2150 / 2150 Balance 960.01 / 800.01 -399 / -499 -39 / -39 Lab / Micro Data Result Diagrams: 07/13/22 06:02 07/13/22 06:02 Labs: Laboratory Results - last 24 hr 07/13/22 06:02: TSH 0.33 L 07/13/22 09:00: S.aureus Protein A PCR POSITIVE H, MRSA (PCR) POSITIVE H 07/15/22 06:00: Urine Test Negative 07/15/22 13:50: POC Glucose 126 H 07/15/22 16:09: POC Glucose 156 H Micro: Microbiology 07/13/22 09:00 Wound - Heel, Left Gram Stain - Final 07/13/22 09:00 Wound - Heel, Left Wound Culture - Preliminary Gram positive sue Streptococcus agalactiae (B) Staphylococcus species 07/13/22 00:40 Blood Culture (Wb) - Right Forearm Blood Culture - Preliminary No growth in 48 hours. 07/13/22 00:15 Blood Culture (Wb) - Anticubital Right Blood Culture - Final Streptococcus agalactiae (B) Radiography Diagnostic Testing: Radiology Impression Foot X-Ray 07/15/22 14:25 IMPRESSION: undefined Physical Exam Narrative alert, oriented x3 and no apparent distress General Appearance: cooperative, well kempt and well developed Orientation / Consciousness: awake, oriented to person, oriented to place and oriented to time HEENT normocephalic, head/scalp atraumatic and moist oral mucous membranes Eyes PERRL, EOMs intact bilaterally and conjunctivae normal Neck supple, no JVD and thyroid normal General: trachea midline Resp normal respiratory effort, no retractions, no use of accessory muscles and clearto auscultation bilaterally Auscultation: Negative for rales, rhonchi or wheezes Cardio regular rate, regular rhythm, no murmurs, no rub and no gallops GI normal to inspection, nondistended, normoactive bowel sounds, soft to palpation,non-tender and non-distended GI Narrative: There is a colostomy present as well as a suprapubic catheter Extremity Extremity Narrative: Patient's left foot was not examined today, it is wrapped with surgical dressing Neuro oriented x3, CN's II-XII intact bilaterally and no sensory deficits noted Sensorium / Orientation: awake, alert, oriented to person, oriented to place andoriented to time Speech: speech normal Psych affect normal Assessment & Plan Assessment/Plan (1) Foot osteomyelitis, left: PLAN: Plan 1. Osteomyelitis of the left foot-patient was to undergo surgery today by podiatry #2 cellulitis of the left foot-again antibiotic coverage per infectious diseases #3 type 2 diabetes-blood sugars will be monitored, sliding scale insulin will begiven as needed #4 chronic kidney disease stage III secondary to type 2 diabetes-patient's renalfunctions will be monitored #5 paroxysmal supraventricular tachycardia-patient takes rate limiting medication at home, this will be continued #6 spina bifida-patient has a suprapubic catheter and colostomy, complicates care, medical course, recovery, and prognosis. Total clinical time spent by myself addressing the patient's medical issues, reviewing all the patient's data, and collaborating with patient's care team: 35minutes Charges/Coding Visit Charges Inpatient E&M: 92070 Subs Hosp L2 07/15/221936 <Electronically signed by Quynh Boyer DO> Cosigner Signature (if applicable): CC: ~ Signed [facility] Work Phone: 1(586) 305-578602-17-[address] Boyer [facility] July 15, 2022 7:29pm Note Date/Time July 14, 2022 6:38pm [facility] Medical Records Department [address] [place] [address] Progress Note - Hospitalist 07/14/22 1837 MR#: [id number] Acct: [id number] Name: DEBBY BAILON Rep #:[id number] : 1980 41 From: Quynh Boyer DO PCP: Dr. 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 Patient has decided that she would like to have surgery concerning her foot infection and osteomyelitis, will be up to podiatry to plan when the surgery will take place (possibly tomorrow). ID saw the patient today and is managing antibiotic administration. Objective Data Objective Data Vital Signs: Vital Signs Temp Pulse Resp BP Pulse Ox O2 Del Method 98.2 F 66 18 97/59 L 99 Room Air 07/14/22 14:30 07/14/22 14:30 07/14/22 14:30 07/14/22 14:30 07/14/22 14:47 07/14/22 14:47 Oxygen Delivery Method Room Air Weight: 92.986 kg Body Mass Index (BMI) 37.8 Intake & Output: Intake and Output for Last 24 Hours 07/12/22 07/13/22 07/14/22 23:59 23:59 23:59 Intake Total 2360.01 / 2600.01 601 / 601 Output Total 1400 / 1800 1200 / 1200 Balance 960.01 / 800.01 -599 / -599 Lab / Micro Data Result Diagrams: 07/13/22 06:02 07/13/22 06:02 Labs: Laboratory Results - last 24 hr 07/13/22 09:00: S.aureus Protein A PCR POSITIVE H, MRSA (PCR) POSITIVE H 07/13/22 21:03: POC Glucose 216 H 07/14/22 05:35: POC Glucose 141 H Micro: Microbiology 07/13/22 09:00 Wound - Heel, Left Gram Stain - Final 07/13/22 09:00 Wound - Heel, Left Wound Culture - Preliminary Gram positive sue 07/13/22 00:15 Blood Culture (Wb) - Anticubital Right Blood Culture - Preliminary Streptococcus group B Physical Exam Const alert, oriented x3 and no apparent distress General Appearance: cooperative, well kempt and well developed Orientation / Consciousness: awake, oriented to person, oriented to place and oriented to time HEENT normocephalic, head/scalp atraumatic and moist oral mucous membranes Eyes PERRL, EOMs intact bilaterally and conjunctivae normal Neck supple, no JVD and thyroid normal General: trachea midline Resp normal respiratory effort, no retractions, no use of accessory muscles and clearto auscultation bilaterally Auscultation: Negative for rales, rhonchi or wheezes Cardio regular rate, regular rhythm, no murmurs, no rub and no gallops GI normal to inspection, nondistended, normoactive bowel sounds, soft to palpation,non-tender and non-distended GI Narrative: There is a colostomy present as well as a suprapubic catheter Extremity Extremity Narrative: Patient's left foot was not examined today, it is wrapped with surgical dressing Neuro oriented x3, CN's II-XII intact bilaterally and no sensory deficits noted Sensorium / Orientation: awake, alert, oriented to person, oriented to place andoriented to time Speech: speech normal Psych affect normal Assessment & Plan Assessment/Plan (1) Foot osteomyelitis, left: PLAN: Plan 1. Osteomyelitis of the left foot-again patient has agreed to have foot surgery, this will probably be carried out tomorrow, continue present antibioticcoverage per infectious diseases #2 cellulitis of the left foot-again antibiotic coverage per infectious diseases #3 type 2 diabetes-blood sugars will be monitored, sliding scale insulin will begiven as needed #4 chronic kidney disease stage III secondary to type 2 diabetes-patient's renalfunctions will be monitored #5 paroxysmal supraventricular tachycardia-patient takes rate limiting medication at home, this will be continued #6 spina bifida-patient has a suprapubic catheter and colostomy, complicates care, medical course, recovery, and prognosis. Total clinical time spent by myself addressing the patient's medical issues, reviewing all the patient's data, and collaborating with patient's care team: 35minutes Charges/Coding Visit Charges Inpatient E&M: 88618 Subs Hosp L2 07/15/221928 <Electronically signed by Quynh Boyer DO> Cosigner Signature (if applicable): CC: ~ Signed [facility] Work Phone: 1(558) 850-904402-17-2023 Procedure [facility] 07-14-[address] Ngo [facility] July 14, 2022 10:27am Note Date/Time July 14, 2022 10:27am [facility] Medical Records Department [address] [place] [address] Consultation - Infectious Dx 07/14/22 1023 MR#: [id number] Acct: [id number] Name: DEBBY BAILON Rep #:[id number] : 1980 41 From: Bev newton MD PCP: Dr. Will Brannon MD Status:ADM [id number] Assessment & Plan Assessment/Plan (1) Diabetes mellitus with diabetic polyneuropathy: (2) Foot osteomyelitis, left: PLAN: Wound cx pending. May need surgical I&D. Has tolerated cefepime and augmentin in the past. Will cover with dapto/cefepime/flagyl for now. Will follow, thank you HPI Consult Data Date of Consult: 07/14/22 HPI Narrative Reason for Consultation: osteo HPI Narrative: DEBBY BAILON, is a 41 F with DM neuropathy, prior h/o foot osteo, presented with one week of worsening of chronic L foot ulcer. Reports new pain, redness, swelling, and purulent drainage. Had associated fever, chills, and nausea. Came to ED, admitted on levaquin/flagyl. MRI showed osteo, bedside I&D done by podiatry. Full ROS performed and neg except as noted above. [facility] Medical History Anxiety and depression Arthritis Manley's palsy Cellulitis of left lower extremity Chronic back pain Chronic nausea Colostomy in place Constipation Delayed wound healing Depression Diabetes mellitus, type II Diabetic foot infection Diabetic polyneuropathy Diabetic ulcer of left heel with fat layer exposed DJD (degenerative joint disease) of thoracic spine Dysthymic disorder Essential hypertension Hematochezia History of kidney stones History of migraine Hydronephrosis of right kidney Hyperglycemia Hyperlipidemia Infection of bladder catheter Insomnia Lipomeningocele Lower extremity edema Morbid obesity with BMI of 40.0-44.9, adult Neurogenic bladder Neurogenic bowel Non-compliance Non-smoker Normochromic normocytic anemia Open wound of left foot Panic attacks PSVT (paroxysmal supraventricular tachycardia) Sepsis Sepsis Spina bifida aperta of lumbar spine Thyroid cyst Type 2 diabetes mellitus with diabetic polyneuropathy Type 2 diabetes mellitus with foot ulcer Ulcer of left heel and midfoot with fat layer exposed Uninodular goiter Urinary tract infection Urinary tract infection UTI (urinary tract infection) UTI (urinary tract infection) Weakness Home Medications furosemide 20 mg tablet 20 mg PO 2200 fluid 08/28/18 [History Last Taken 01/18/22] furosemide 40 mg tablet 40 mg PO BREAKFAST fluid 04/05/19 [History Last Taken 01/19/22] oxybutynin chloride 15 mg tablet,extended release 24 hr 15 mg PO DAILY bladder 11/12/19 [History Last Taken 01/19/22] acetaminophen 500 mg tablet 1,000 mg PO TID PRN PRN Pain Or Fever 02/12/20 [History Last Taken 09/24/20 19:24] trazodone 100 mg tablet 100 mg PO QHS sleep 01/19/21 [History Last Taken Unknown] atorvastatin 80 mg tablet 80 mg PO DAILY cholesterol 01/29/21 [History Last Taken 01/19/22] insulin aspart (niacinamide)(U-100) 100 unit/mL(3 mL) subcutaneous pen 0 - 100 ml subcut PRN PRN Hyperglycemia 01/29/21 [History Last Taken Unknown] pen needle, diabetic 32 gauge x 5/32 (BD Ultra-Fine Hope Pen Needle) #400 ea 03/05/21 [Rx Last Taken Unknown] phenazopyridine 200 mg tablet (Pyridium) 200 mg PO BID PRN PRN Pain 11/20/21 [History Last Taken Unknown] glimepiride 2 mg tablet 2 mg PO BID #180 tabs 01/21/22 [Rx Last Taken 01/19/22] lisinopril 5 mg tablet 2.5 mg PO DAILY #90 tabs 01/21/22 [Rx Last Taken 01/19/22] propranolol 10 mg tablet 5 mg PO BID heart #30 tabs 01/21/22 [Rx Last Taken 01/19/22] ondansetron 4 mg disintegrating tablet 4 mg PO Q6H PRN nausea and vomiting #7 tabs 03/22/22 [Rx Last Taken Unknown] ciprofloxacin HCl 750 mg tablet 750 mg PO BID 10 days #20 tabs 04/11/22 [Rx Last Taken Unknown] clindamycin HCl 300 mg capsule 300 mg PO 4X/DAY 10 days #40 caps 04/11/22 [Rx Last Taken Unknown] insulin glargine 100 unit/mL (3 mL) subcutaneous pen (Lantus Solostar U-100 Insulin) 33 unit subcut QHS dm 07/13/22 [History Last Taken Unknown] Allergy/AdvReac Type Severity Reaction Status Date / Time ceftriaxone [From Rocephin] Allergy Hives Verified 07/12/22 22:59 mushroom Allergy Anaphylaxis Verified 07/12/22 22:59 peanut Allergy Anaphylaxis Verified 07/12/22 22:59 fentanyl AdvReac Low blood Verified 07/12/22 22:59 pressure gabapentin AdvReac Other Verified 07/12/22 22:59 Gadolinium-MRI Contrast AdvReac Vomiting Verified 07/12/22 22:59 Medium Latex, Natural Rubber AdvReac Rash Verified 07/12/22 22:59 vancomycin AdvReac Rash Verified 07/12/22 22:59 zosyn Allergy NEEDS Uncoded 07/13/22 03:46 FOLLOW-UP Family History Mother CVA (cerebral vascular accident) Thyroid disorder Diabetes Hypertension Heart disease Hyperlipidemia Myocardial infarction, Onset Age: 54 mother had diabetes Father Cancer skin Grandmother Cancer liver Other Arthritis Skin cancer Surgical History history insertion suprapubic catheter History of cholecystectomy History of dilation and curettage History of spinal surgery Hx of foot surgery Hx of ventral hernia repair S/P colostomy S/P thyroid biopsy (~11/06/19) Status post gastric surgery Social History household members: significant other Smoking Status: Never smoker alcohol intake: current substance use type: does not use Physical Exam Const alert, oriented x3 and no apparent distress General Appearance: cooperative and well developed HEENT normocephalic and head/scalp atraumatic Eyes PERRL and EOMs intact bilaterally Neck supple and No nodes Resp normal air movement and clear to auscultation bilaterally Cardio regular rate and regular rhythm GI soft to palpation, non-tender and non-distended Extremity General Extremity: edema Skin Skin Narrative: Reviewed photos, L foot swelling, redness, ulceration Neuro CN's II-XII intact bilaterally Lab / Micro Data Attestation: I reviewed the patient's lab results. Result Diagrams: 07/13/22 06:02 07/13/22 06:02 Labs: Laboratory Results - last 24 hr 07/13/22 11:11: POC Glucose 160 H 07/13/22 15:29: POC Glucose 139 H 07/13/22 21:03: POC Glucose 216 H 07/14/22 05:35: POC Glucose 141 H Micro: Microbiology 07/13/22 00:15 Blood Culture (Wb) - Anticubital Right Blood Culture - Preliminary Streptococcus group B Radiology Impression Lower Extremity MRI 07/13/22 04:39 IMPRESSION: Osteomyelitis of the medial sesamoid of the great toe 1. A moderate-sized soft tissue ulcer is present on the plantar aspect of the foot beneath the head of the first metatarsal bone and the sesamoids resulting in mild cortical erosion and reactive sclerosis of the medial sesamoid, in addition to mild contrast enhancement and marrow edema on the inner side of the medial sesamoid which is best seen on image 31/40 series 12, consistent with active osteomyelitis. Cellulitis is present in the ulcerated soft tissues beneath the sesamoids first metatarsal head but no soft tissue abscess is present. The ulcer measures 1.36 cm in diameter. Electronically Signed: Rich Rucker MD at 12:02 EST Reading Location ID and State: [address] [place] [address] , Service support , ADDENDUM: 07/13/22 1318 IMPRESSION: Osteomyelitis of the medial sesamoid of the great toe 1. A moderate-sized soft tissue ulcer is present on the plantar aspect of the foot beneath the head of the first metatarsal bone and the sesamoids resulting in mild cortical erosion and reactive sclerosis of the medial sesamoid, in addition to mild contrast enhancement and marrow edema on the inner side of the medial sesamoid which is best seen on image 31/40 series 12, consistent with active osteomyelitis. Cellulitis is present in the ulcerated soft tissues beneath the sesamoids first metatarsal head but no soft tissue abscess is present. The ulcer measures 1.36 cm in diameter. N.B. : Coreen Bolanos RN, confirmed on 07/13/2022 13:11:10 (ET) that the healthcare facility has received the radiology report. Electronically Signed: Rich Rucker MD at 12:02 EST , 07/14/22 1027 <Electronically signed by Bev Ngo MD> Cosigner Signature (if applicable): CC: DPBayron Guo; Dr. Will Brannon MD; Dr. Brittani Panda MD; Dr.Robert Abi MD~ Signed [facility] Work Phone: 1(648) 378-684902-16-[address] Guo [facility] July 14, 2022 7:24am Note Date/Time July 14, 2022 6:58am [facility] Medical Records Department [address] [place] [id number] Progress Note 07/14/2258 MR#: [id number] Acct: [id number] Name: DEBBY BAILON Rep #:[id number] : 1980 41 From: Will Guo DPM PCP: Dr. Will Brannon MD Status:ADM IN Location: [place] [address] Subjective Subjective Patient was seen this morning for follow up on left foot. She is resting comfortably in bed. She has no new complaints. No fevers. Objective Data Objective Data Vital Signs: Vital Signs Temp Pulse Resp BP Pulse Ox O2 Del Method 98.2 F 70 15 106/70 99 Room Air 07/14/22 05:00 07/14/22 05:00 07/14/22 05:00 07/14/22 05:00 07/14/22 05:00 07/14/22 05:00 Oxygen Delivery Method Room Air Weight: 90.9 kg Body Mass Index (BMI) 37.8 Intake & Output: Intake and Output for Last 24 Hours 07/12/22 07/13/22 07/14/22 23:59 23:59 23:59 Intake Total 2360.01 / 2600.01 340 / 340 Output Total 1400 / 1800 400 / 400 Balance 960.01 / 800.01 -60 / -60 Lab / Micro Data Result Diagrams: 07/13/22 06:02 07/13/22 06:02 Labs: Laboratory Results - last 24 hr 07/13/22 06:02: Hemoglobin A1c 10.5 H 07/13/22 06:15: POC Glucose 228 H 07/13/22 11:11: POC Glucose 160 H 07/13/22 15:29: POC Glucose 139 H 07/13/22 21:03: POC Glucose 216 H 07/14/22 05:35: POC Glucose 141 H Micro: Microbiology 07/13/22 00:15 Blood Culture (Wb) - Anticubital Right Blood Culture - Preliminary Radiography Diagnostic Testing: Radiology Impression Lower Extremity MRI 07/13/22 04:39 IMPRESSION: Osteomyelitis of the medial sesamoid of the great toe 1. A moderate-sized soft tissue ulcer is present on the plantar aspect of the foot beneath the head of the first metatarsal bone and the sesamoids resulting in mild cortical erosion and reactive sclerosis of the medial sesamoid, in addition to mild contrast enhancement and marrow edema on the inner side of the medial sesamoid which is best seen on image 31/40 series 12, consistent with active osteomyelitis. Cellulitis is present in the ulcerated soft tissues beneath the sesamoids first metatarsal head but no soft tissue abscess is present. The ulcer measures 1.36 cm in diameter. Electronically Signed: Rich Rucker MD at 12:02 EST Reading Location ID and State: [address] [place] [address] , Service support , ADDENDUM: 07/13/22 1318 IMPRESSION: Osteomyelitis of the medial sesamoid of the great toe 1. A moderate-sized soft tissue ulcer is present on the plantar aspect of the foot beneath the head of the first metatarsal bone and the sesamoids resulting in mild cortical erosion and reactive sclerosis of the medial sesamoid, in addition to mild contrast enhancement and marrow edema on the inner side of the medial sesamoid which is best seen on image 31/40 series 12, consistent with active osteomyelitis. Cellulitis is present in the ulcerated soft tissues beneath the sesamoids first metatarsal head but no soft tissue abscess is present. The ulcer measures 1.36 cm in diameter. N.B. : Coreen Bolanos RN, confirmed on 07/13/2022 13:11:10 (ET) that the healthcare facility has received the radiology report. Electronically Signed: Rich Rucker MD at 12:02 EST Reading Location ID and State: [facility] / [place] , Service support , Physical Exam Const alert, oriented x3 and no apparent distress Constitutional Narrative: Left foot ulcer sub 1st met head s/p debridement with healthy viable tissues down to subcutaneous tissue, left heel ulceration s/p debridement with healthy and viable tissues, down to subcutaneous tissue. Cellulitis left foot significantly improved. There is no pain to the left foot at this time, there ischronic peripheral neuropathy and diffuse weakness which is chronic. Vascular status intact bilateral foot. No open lesions right foot. Assessment & Plan Assessment/Plan (1) Cellulitis of left lower limb: (2) Diabetes mellitus with diabetic polyneuropathy: (3) Type 2 diabetes mellitus with foot ulcer: (4) Non-pressure chronic ulcer of left heel and midfoot with fat layer exposed: PLAN: Plan Evaluation performed. Reviewed conditions and treatment options. Reviewed diagnostic data. MRI obtained and noted to have findings c/w osteomyelitis to the medial sesamoid. This was discussed with patient. Discussed IV antibiotic, wound care, and also surgical options. Discussed each and she relates she would like to discuss with her . Cultures have been obtained. Patient is on IV antibiotics. ID has been consulted. No weightbearing left foot. Podiatry will continue to follow, thank you for consultation. 07/14/22723 <Electronically signed by Will Guo DPM> Will Guo DPM Cosigner Signature (if applicable): CC: ~ Signed [facility] Work Phone: 1(129) 152-600502-15-[address] Boyer [facility] July 13, 2022 4:19pm Note Date/Time July 13, 2022 4:14pm [facility] Medical Records Department [address] [place] [address] Progress Note - Hospitalist 07/13/22 1610 MR#: [id number] Acct: [id number] Name: DEBBY BAILON Rep #:[id number] : 1980 41 From: Quynh Boyer DO PCP: Dr. Will Brannon MD Status:ADM IN Location: [place] [address] Hospitalist Note Patient was seen and examined briefly today, I talked with podiatry about her care also. Patient's left foot ulcerations were debrided at the bedside today by podiatry, MRI however came back as showing changes consistent with active osteomyelitis beneath the head of the first metatarsal bone and the sesamoids. I have elected to have infectious diseases see the patient, patient will remain on her present antibiotic coverage (Levaquin and Flagyl). I talked briefly withinfectious diseases about her care. 07/13/22 1619 <Electronically signed by Quynh Boyer DO> Cosigner Signature (if applicable): CC: ~ Signed [facility] Work Phone: [phone] 178-799802-15-[address] Guo [facility] July 13, 2022 12:08pm Note Date/Time July 13, 2022 12:08pm [facility] Medical Records Department [address] [place] [address] Consultation 07/13/22 1201 MR#: [id number] Acct: [id number] Name: DEBBY BAILON Rep #:[id number] : 1980 41 From: Will Guo Bayron PCP: Dr. Will Brannon MD Status:ADM IN Location: [place] [address] Assessment & Plan Assessment/Plan (1) Cellulitis of left lower limb: (2) Diabetes mellitus with diabetic polyneuropathy: (3) Type 2 diabetes mellitus with foot ulcer: (4) Non-pressure chronic ulcer of left heel and midfoot with fat layer exposed: PLAN: Plan Evaluation performed. Reviewed conditions and treatment options. Reviewed diagnostic data. MRI results pending at this time. Cultures have been obtained and pending. Patient is on IV antibiotics. After consent obtained and left foot ulcerations were debrided using a 15 blade in sharp excisional fashion removing nonviable tissue - was debrided down to healthy viable tissue, no anesthesia was needed due to patient's neuropathy and hemostasis achieved with gauze and pressure. Post debridement the ulcer left heal measured 3cm x 1.5cm and left sub 1st met head 1.5cm x 1.0cm - both down to subcutaneous tissue layer which is depth of the debridement. Betadine gauze, kerlix and komal dressing applied - change daily. No weightbearing left foot. Podiatry will continue to follow, thank you for consultation. HPI Consult Data Date of Consult: 07/13/22 HPI Narrative Reason for Consultation: Left foot infection HPI Narrative: DEBBY BAILON, is a 41 F who presents with wounds on left foot and cellulitis. She relates sites were doing good but recently worsened. She has redness to the foot. She was admitted for further management, she just got back from MRI. She has no other complaints and is resting comfortably in bed. No f/c/n/v. [facility] Medical History (Updated 07/13/22 @ 12:[address] Will Guo, DP) Anxiety and depression Arthritis Manley's palsy Cellulitis of left lower extremity Chronic back pain Chronic nausea Colostomy in place Constipation Delayed wound healing Depression Diabetes mellitus, type II Diabetic foot infection Diabetic polyneuropathy Diabetic ulcer of left heel with fat layer exposed DJD (degenerative joint disease) of thoracic spine Dysthymic disorder Essential hypertension Hematochezia History of kidney stones History of migraine Hydronephrosis of right kidney Hyperglycemia Hyperlipidemia Infection of bladder catheter Insomnia Lipomeningocele Lower extremity edema Morbid obesity with BMI of 40.0-44.9, adult Neurogenic bladder Neurogenic bowel Non-compliance Non-smoker Normochromic normocytic anemia Open wound of left foot Panic attacks PSVT (paroxysmal supraventricular tachycardia) Sepsis Sepsis Spina bifida aperta of lumbar spine Thyroid cyst Type 2 diabetes mellitus with diabetic polyneuropathy Type 2 diabetes mellitus with foot ulcer Ulcer of left heel and midfoot with fat layer exposed Uninodular goiter Urinary tract infection Urinary tract infection UTI (urinary tract infection) UTI (urinary tract infection) Weakness Home Medications furosemide 20 mg tablet 20 mg PO 2200 fluid 08/28/18 [History Last Taken 01/18/22] furosemide 40 mg tablet 40 mg PO BREAKFAST fluid 04/05/19 [History Last Taken 01/19/22] oxybutynin chloride 15 mg tablet,extended release 24 hr 15 mg PO DAILY bladder 11/12/19 [History Last Taken 01/19/22] acetaminophen 500 mg tablet 1,000 mg PO TID PRN PRN Pain Or Fever 02/12/20 [History Last Taken 09/24/20 19:24] trazodone 100 mg tablet 100 mg PO QHS sleep 01/19/21 [History Last Taken Unknown] atorvastatin 80 mg tablet 80 mg PO DAILY cholesterol 01/29/21 [History Last Taken 01/19/22] insulin aspart (niacinamide)(U-100) 100 unit/mL(3 mL) subcutaneous pen 0 - 100 ml subcut PRN PRN Hyperglycemia 01/29/21 [History Last Taken Unknown] pen needle, diabetic 32 gauge x 5/32 (BD Ultra-Fine Hope Pen Needle) #400 ea 03/05/21 [Rx Last Taken Unknown] phenazopyridine 200 mg tablet (Pyridium) 200 mg PO BID PRN PRN Pain 11/20/21 [History Last Taken Unknown] glimepiride 2 mg tablet 2 mg PO BID #180 tabs 01/21/22 [Rx Last Taken 01/19/22] lisinopril 5 mg tablet 2.5 mg PO DAILY #90 tabs 01/21/22 [Rx Last Taken 01/19/22] propranolol 10 mg tablet 5 mg PO BID heart #30 tabs 01/21/22 [Rx Last Taken 01/19/22] ondansetron 4 mg disintegrating tablet 4 mg PO Q6H PRN nausea and vomiting #7 tabs 03/22/22 [Rx Last Taken Unknown] ciprofloxacin HCl 750 mg tablet 750 mg PO BID 10 days #20 tabs 04/11/22 [Rx Last Taken Unknown] clindamycin HCl 300 mg capsule 300 mg PO 4X/DAY 10 days #40 caps 04/11/22 [Rx Last Taken Unknown] insulin glargine 100 unit/mL (3 mL) subcutaneous pen (Lantus Solostar U-100 Insulin) 33 unit subcut QHS dm 07/13/22 [History Last Taken Unknown] Allergy/AdvReac Type Severity Reaction Status Date / Time ceftriaxone [From Rocephin] Allergy Hives Verified 07/12/22 22:59 mushroom Allergy Anaphylaxis Verified 07/12/22 22:59 peanut Allergy Anaphylaxis Verified 07/12/22 22:59 fentanyl AdvReac Low blood Verified 07/12/22 22:59 pressure gabapentin AdvReac Other Verified 07/12/22 22:59 Gadolinium-MRI Contrast AdvReac Vomiting Verified 07/12/22 22:59 Medium Latex, Natural Rubber AdvReac Rash Verified 07/12/22 22:59 vancomycin AdvReac Rash Verified 07/12/22 22:59 zosyn Allergy NEEDS Uncoded 07/13/22 03:46 FOLLOW-UP Family History Mother CVA (cerebral vascular accident) Thyroid disorder Diabetes Hypertension Heart disease Hyperlipidemia Myocardial infarction, Onset Age: 54 mother had diabetes Father Cancer skin Grandmother Cancer liver Other Arthritis Skin cancer Surgical History history insertion suprapubic catheter History of cholecystectomy History of dilation and curettage History of spinal surgery Hx of foot surgery Hx of ventral hernia repair S/P colostomy S/P thyroid biopsy (~11/06/19) Status post gastric surgery Social History household members: significant other Smoking Status: Never smoker alcohol intake: current substance use type: does not use Physical Exam Const alert, oriented x3 and no apparent distress Constitutional Narrative: Left foot ulcer sub 1st met head with purulence and overlying nonviable tissue, down to subcutaneous tissue, left heel ulceration with nonviable tissue as well and down to subcutaneous tissue. There is some cellulitis to the left foot. There is no pain to the left foot at this time, there is chronic peripheral neuropathy and diffuse weakness which is chronic. Vascular status intact bilateral foot. No open lesions right foot. Lab / Micro Data Result Diagrams: 07/13/22 06:02 07/13/22 06:02 Labs: Laboratory Results - last 24 hr 07/13/22 00:15: WBC 15.2 H, RBC 4.55, Hgb 12.7, Hct 38.8, MCV 85.3, MCH 27.9, MCHC 32.7, RDW Std Deviation 42.2, RDW Coeff of Claude 13.7, Plt Count 255, MPV 10.3, Immature Gran % (Auto) 0.800, Neut % (Auto) 85.3 H, Lymph % (Auto) 6.6 L, [place] % (Auto) 6.9, Eos % (Auto) 0.1, Baso % (Auto) 0.3, Absolute Neuts (auto) 13.0 H, Absolute Lymphs (auto) 1.00, Nucleated RBC % 0, ESR 57 H 07/13/22 00:15: Sodium 132 L, Potassium 4.3, Chloride 101, Carbon Dioxide 23.0, Anion Gap 8, BUN 12, Creatinine 1.08 H, Estim Creat Clear Calc 52.25, Est GFR (MDRD) Af Amer 72, Est GFR (MDRD) Non-Af 60, BUN/Creatinine Ratio 11.1, Glucose 235 H, Calcium 9.3, C-React Prot Ext Range 53.70 H 07/13/22 00:15: Lactic Acid 1.6 07/13/22 06:02: WBC 11.8 H, RBC 3.93 L, Hgb 11.0 L, Hct 34.0 L, MCV 86.5, MCH 28.0, MCHC 32.4, RDW Std Deviation 43.7, RDW Coeff of Claude 13.7, Plt Count 212, MPV 10.2, Immature Gran % (Auto) 1.200 H, Neut % (Auto) 77.8 H, Lymph % (Auto) 12.7 L, [place] % (Auto) 7.7, Eos % (Auto) 0.2, Baso % (Auto) 0.4, Absolute Neuts (auto) 9.2 H, Absolute Lymphs (auto) 1.49, Nucleated RBC % 0, ESR 69 H 07/13/22 06:02: Sodium 136, Potassium 4.0, Chloride 105, Carbon Dioxide 24.0, Anion Gap 7, BUN 12, Creatinine 0.95, Estim Creat Clear Calc 59.40, Est GFR (MDRD) Af Amer 84, Est GFR (MDRD) Non-Af 69, BUN/Creatinine Ratio 12.6, Glucose 236 H, Calcium 8.5, Total Bilirubin 0.50, AST 39 H, ALT 45, Alkaline [id number], C-React Prot Ext Range 60.40 H, Total Protein 7.4, Albumin 2.8 L, Globulin 4.6 H, Albumin/Globulin Ratio 0.6 L 07/13/22 06:02: Hemoglobin A1c 10.5 H 07/13/22 06:15: POC Glucose 228 H 07/13/22 11:11: POC Glucose 160 H Radiology Impression Foot X-Ray 07/13/22 00:00 IMPRESSION: 1. Persistent soft tissue wound left heel with no radiographic evidence of adjacent osteomyelitis. 2. Chronic absence great toe distal phalanx and distal fifth metatarsal. 3. Mild calcaneal spurring. Electronically Signed: Quynh Mccrary MD at 1:34 EST , 07/13/22 1208 <Electronically signed by Will Guo DPM> Cosigner Signature (if applicable): CC: ERIC Gomez; Dr. Will Brannon MD; Dr. Brittani Panda MD~ Signed [facility] Work Phone: [phone]) 474-395502-15-2023 Discharge summary [facility] 7:25am Note Date/Time July 13, 2022 1:00am [facility] Medical Records Department [address] [place] [address] Emergency Department Summary 07/13/22 MR#: [id number] Acct: [id number] Name: DEBBY BAILON Rep #:[id number] : 1980 41 From: Alexander Hooks DO PCP: Dr. Will Brannon MD Status:ADM IN Location: [address] HPI History of Present Illness Chief Complaint: Fever Narrative Narrative: Patient is a 41-year-old female with past medical history of insulin-dependent diabetes chronic kidney disease with chronic indwelling Cook catheter and previous osteomyelitis of her left great toe requiring amputation. Patient states roughly 1 week ago she injured her left foot and went to an outside hospital as she thought she had a broken bone. She states x-rays that time did not show anything acute but she was having some pain and drainage from her chronic wound so they placed her on antibiotics. Patient is unsure what antibiotic she was given but states has been taking it for 5 to 7 days and despite this she developed a fever up to 102 at home yesterday. She states that there is no abdominal pain nausea vomiting cough or congestion and therefore thefever she is concerned for repeat foot infection and comes in for evaluation. [facility] Medical History (Updated 07/13/22 @ 04:59 by Gloria Beck) Anxiety and depression Arthritis Manley's palsy Cellulitis of left lower extremity Chronic back pain Chronic nausea Colostomy in place Constipation Delayed wound healing Depression Diabetes mellitus, type II Diabetic foot infection Diabetic polyneuropathy Diabetic ulcer of left heel with fat layer exposed DJD (degenerative joint disease) of thoracic spine Dysthymic disorder Essential hypertension Hematochezia History of kidney stones History of migraine Hydronephrosis of right kidney Hyperglycemia Hyperlipidemia Infection of bladder catheter Insomnia Lipomeningocele Lower extremity edema Morbid obesity with BMI of 40.0-44.9, adult Neurogenic bladder Neurogenic bowel Non-compliance Non-smoker Normochromic normocytic anemia Open wound of left foot Panic attacks PSVT (paroxysmal supraventricular tachycardia) Sepsis Sepsis Spina bifida aperta of lumbar spine Thyroid cyst Type 2 diabetes mellitus with diabetic polyneuropathy Type 2 diabetes mellitus with foot ulcer Ulcer of left heel and midfoot with fat layer exposed Uninodular goiter Urinary tract infection Urinary tract infection UTI (urinary tract infection) UTI (urinary tract infection) Weakness Home Medications furosemide 20 mg tablet 20 mg PO 2200 fluid 08/28/18 [History Last Taken 01/18/22] furosemide 40 mg tablet 40 mg PO BREAKFAST fluid 04/05/19 [History Last Taken 01/19/22] oxybutynin chloride 15 mg tablet,extended release 24 hr 15 mg PO DAILY bladder 11/12/19 [History Last Taken 01/19/22] acetaminophen 500 mg tablet 1,000 mg PO TID PRN PRN Pain Or Fever 02/12/20 [History Last Taken 09/24/20 19:24] trazodone 100 mg tablet 100 mg PO QHS sleep 01/19/21 [History Last Taken Unknown] atorvastatin 80 mg tablet 80 mg PO DAILY cholesterol 01/29/21 [History Last Taken 01/19/22] insulin aspart (niacinamide)(U-100) 100 unit/mL(3 mL) subcutaneous pen 0 - 100 ml subcut PRN PRN Hyperglycemia 01/29/21 [History Last Taken Unknown] pen needle, diabetic 32 gauge x 5/32 (BD Ultra-Fine Hope Pen Needle) #400 ea 03/05/21 [Rx Last Taken Unknown] phenazopyridine 200 mg tablet (Pyridium) 200 mg PO BID PRN PRN Pain 11/20/21 [History Last Taken Unknown] glimepiride 2 mg tablet 2 mg PO BID #180 tabs 01/21/22 [Rx Last Taken 01/19/22] lisinopril 5 mg tablet 2.5 mg PO DAILY #90 tabs 01/21/22 [Rx Last Taken 01/19/22] propranolol 10 mg tablet 5 mg PO BID heart #30 tabs 01/21/22 [Rx Last Taken 01/19/22] ondansetron 4 mg disintegrating tablet 4 mg PO Q6H PRN nausea and vomiting #7 tabs 03/22/22 [Rx Last Taken Unknown] ciprofloxacin HCl 750 mg tablet 750 mg PO BID 10 days #20 tabs 04/11/22 [Rx Last Taken Unknown] clindamycin HCl 300 mg capsule 300 mg PO 4X/DAY 10 days #40 caps 04/11/22 [Rx Last Taken Unknown] insulin glargine 100 unit/mL (3 mL) subcutaneous pen (Lantus Solostar U-100 Insulin) 33 unit subcut QHS dm 07/13/22 [History Last Taken Unknown] Allergy/AdvReac Type Severity Reaction Status Date / Time ceftriaxone [From Rocephin] Allergy Hives Verified 07/12/22 22:59 mushroom Allergy Anaphylaxis Verified 07/12/22 22:59 peanut Allergy Anaphylaxis Verified 07/12/22 22:59 fentanyl AdvReac Low blood Verified 07/12/22 22:59 pressure gabapentin AdvReac Other Verified 07/12/22 22:59 Gadolinium-MRI Contrast AdvReac Vomiting Verified 07/12/22 22:59 Medium Latex, Natural Rubber AdvReac Rash Verified 07/12/22 22:59 vancomycin AdvReac Rash Verified 07/12/22 22:59 zosyn Allergy NEEDS Uncoded 07/13/22 03:46 FOLLOW-UP Family History Mother CVA (cerebral vascular accident) Thyroid disorder Diabetes Hypertension Heart disease Hyperlipidemia Myocardial infarction, Onset Age: 54 mother had diabetes Father Cancer skin Grandmother Cancer liver Other Arthritis Skin cancer Surgical History history insertion suprapubic catheter History of cholecystectomy History of dilation and curettage History of spinal surgery Hx of foot surgery Hx of ventral hernia repair S/P colostomy S/P thyroid biopsy (~11/06/19) Status post gastric surgery Social History household members: significant other Smoking Status: Never smoker alcohol intake: current substance use type: does not use ROS ROS ED Constitutional Constitutional ED: Reports chills and fever(s) ENT ENT ED: Denies sore throat Cardiovascular Cardiovascular: Denies chest pain Respiratory/Chest Respiratory/Chest: Denies cough or dyspnea Gastrointestinal Gastrointestinal: Denies abdominal pain, diarrhea, nausea or vomiting Genitourinary Genitourinary ED: Denies dysuria Musculoskeletal Musculoskeletal: Reports other Details: Positive left foot pain Integumentary Reports other Details: Positive left foot swelling and redness ; Denies rash Neurologic Neurologic: Denies headache(s) Hematologic/Lymphatic Hematologic/Lymphatic: Denies easy bleeding or easy bruising EXAM Physical Exam Const Vital Signs: 07/12/22 22:53 07/13/22 00:24 07/13/22 00:46 Temperature 101.2 F H 100.5 F H Temperature Source Oral Temporal Pulse Rate 122 H 101 H Respiratory Rate 15 16 Respiratory Pattern Normal Blood Pressure 109/71 108/74 Blood Pressure Mean 83 85 Pulse Ox 98 93 Oxygen Delivery Method Room Air Room Air 07/13/22 01:00 07/13/22 02:00 07/13/22 02:04 Temperature 98.1 F 98.4 F 98.4 F Temperature Source Temporal Temporal Temporal Pulse Rate 103 H 101 H 101 H Respiratory Rate 18 14 14 Respiratory Pattern Blood Pressure 122/81 H 104/75 104/75 Blood Pressure Mean 94 84 84 Pulse Ox 96 93 98 Oxygen Delivery Method Room Air Room Air Room Air Positive well nourished, well developed and obese General Appearance ED: well developed Nutritional Appearance: obese HEENT Reports moist mucous membranes Eyes PERRL and EOMs intact bilaterally Neck supple Neck Narrative: No nuchal rigidity or meningeal signs Resp normal respiratory effort and clear to auscultation bilaterally Cardio regular rhythm Rate: tachycardic and other Other Details: Tachycardic rate with regular rhythm GI normal to inspection, nondistended, normoactive bowel sounds, non-tender, non-distended and no masses GI Narrative: No voluntary guarding or rigidity no pulsatile mass Auscultation: normoactive bowel sounds Palpation: soft Narrative: Chronic indwelling Cook catheter draining clear yellow urine Extremity Extremity Narrative: Left lower extremity is neurovascular intact. Patient has chronic changes with amputation of her great toe from previous osteomyelitis. She has chronic ulcerative wounds to the plantar aspect of the left foot in the calcaneal regionas well. Wounds have good granulation tissue without surrounding erythema or purulent discharge. The medial aspect of the foot however is edematous and erythematous and warm to touch. The redness extends back to just below the medial malleolus. There is no streaking past this. No crepitance noted Neuro oriented x3 and CN's II-XII intact bilaterally Sensorium / Orientation: alert Psych mental status grossly normal Skin Skin Narrative: Soft tissue changes to the left lower leg as documented above MDM MDM MDM Narrative Medical decision making narrative: Patient presented to the ER febrile and as she had no other symptoms to explain the fever such as cough congestion nausea or vomiting and exam now showed redness and swelling to the left foot there is concern for development of osteomyelitis. Secondary to his basic blood work was obtained along with blood cultures and patient was started on clindamycin and ciprofloxacin as she has an allergy to vancomycin and penicillin. The x-ray revealed no obvious signs of osteomyelitis but patient does have elevation to her CRP ESR and white blood cell count concerning for systemic infection. The case was discussed with podiatry on-call. They agree at this time as patient's been on outpatient antibiotics now has a true documented fever along with physical exam findings concerning for infection that she needs to be brought into the hospital for IV antibiotics and further evaluation under MRI. They recommend because of her complex medical history should be admitted to the medical service. Secondary [facility] medicine was contacted and they do agree to accept the patient at this time. The plan of care was discussed with the patient and she is agreeable to it Lab Data Attestation: I reviewed the patient's lab results. Labs: Laboratory Results - last 24 hr 07/13/22 07/13/22 07/13/22 00:15 00:15 00:15 WBC 15.2 H RBC 4.55 Hgb 12.7 Hct 38.8 MCV 85.3 MCH 27.9 MCHC 32.7 RDW Std Deviation 42.2 RDW Coeff of Claude 13.7 Plt Count 255 MPV 10.3 Immature Gran % (Auto) 0.800 Neut % (Auto) 85.3 H Lymph % (Auto) 6.6 L [place] % (Auto) 6.9 Eos % (Auto) 0.1 Baso % (Auto) 0.3 Absolute Neuts (auto) 13.0 H Absolute Lymphs (auto) 1.00 Nucleated RBC % 0 ESR 57 H Sodium 132 L Potassium 4.3 Chloride 101 Carbon Dioxide 23.0 Anion Gap 8 BUN 12 Creatinine 1.08 H Estim Creat Clear Calc 52.25 Est GFR (MDRD) Af Amer 72 Est GFR (MDRD) Non-Af 60 BUN/Creatinine Ratio 11.1 Glucose 235 H Lactic Acid 1.6 Calcium 9.3 C-React Prot Ext Range 53.70 H Radiography Diagnostic Testing: Clinical Impression(s) from Imaging Studies Foot X-Ray 07/13/22 00:00 IMPRESSION: 1. Persistent soft tissue wound left heel with no radiographic evidence of adjacent osteomyelitis. 2. Chronic absence great toe distal phalanx and distal fifth metatarsal. 3. Mild calcaneal spurring. Electronically Signed: Quynh Mccrary MD at 1:34 EST , X-ray of the left foot reveals chronic findings without acute fracture dislocation or signs of osteomyelitis Discharge Plan Dx/Rx/DC Orders Clinical Impression: Cellulitis, Failure of outpatient treatment, Diabetes mellitus, type II, Pyrexia Disposition Disposition: Acute Care Hospital [facility] What to do if you have Problems For any increased pain, shortness of breath, bleeding, nausea or vomiting, chestpain, or any unexpected problems, contact your Primary Care Provider. Call [facility] ([phone]) or report to the closest Emergency Room. Call 911 if necessary. 07/13/22724 <Electronically signed by Alexander Hooks DO> Cosigner Signature (if applicable): CC: Dr. Will Brannon MD ~ Signed [facility] Work Phone: 1(279) 701-573502-15-2023 History and physical note Author Dr. Panda [facility] July 13, 2022 4:20am Note Date/Time July 13, 2022 3:52am [facility] Medical Records Department [address] [place] [address] H&P Exam - Hospitalist 07/13/22 0347 MR#: [id number] Acct: [id number] Name: DEBBY BAILON Rep #:[id number] : 1980 41 From: Brittani Panda MD PCP: Dr. Will Brannon MD Status:ADM IN Location: [facility] [place] [id number] HPI - General General Date of Admission: 07/13/22 Date of Service: 07/13/22 Chief Complaint: Fever HPI Narrative DEBBY BAILON, is a 41-year-old female with a history of spina bifida with colostomy since September and suprapubic cath for 4 years, type 2 diabetes mellitus, CKD stage III unclear subtype, chronic left foot wounds who presented to [facility] 07/13/[facility] for fevers and right foot cellulitis since Monday. She reports chronic wounds on her left foot at the heel and bottom of first MTPsince November which has been managed by her can tester and had been improving however 1 week ago she fell and went to [place] [facility]. Foot x-ray unremarkable but they suspected she is developing an infection and was placed on antibiotics ?Clindamycin. She then noticed on Monday that she was developing fevers and over the past day has had nausea and vomiting with poor p.o. intake and when shewas febrile she feels slightly short of breath with tight chest. Does have somepain in the foot but reports overall poor feeling, denied other complaints at this time. In the ED she was noted to have a white blood cell count of 15 with an ESR of 57 and a CRP of 53. Foot x-ray unrevealing. Podiatry contacted and recommended admission with antibiotics and MRI in the a.m. She received clindamycin and Cipro as well as morphine 4 mg, 1 g of Tylenol, 1 L normal saline. Upon evaluation patient reports that she was feeling better than she had on presentation. Does still have some pain in that foot and some patchy erythema appreciated. Still has some nausea, did not voice any other complaintsat this time. Did discuss her allergy to gadolinium and she reports that she feels nauseous when she gets contrast however if she sits up for 5 minutes aftergetting the contrast she does not have this problem and has not had this problemat other facilities. Does endorse that she turns red when she takes vancomycin and gets itchy, was told report that she had an anaphylactic reaction to Zosyn, discussed this with her and she reported that she did think she had an anaphylactic reaction when she was given it prior to her colostomy surgery however it did not appear to be on her allergy list upon further review, will likely need to be revisited and clarified. [facility] Medical History Anxiety and depression Arthritis Manley's palsy Cellulitis of left lower extremity Chronic back pain Chronic nausea Colostomy in place Constipation Delayed wound healing Diabetes mellitus, type II Diabetic foot infection Diabetic polyneuropathy Diabetic ulcer of left heel with fat layer exposed DJD (degenerative joint disease) of thoracic spine Dysthymic disorder Essential hypertension Hematochezia History of kidney stones History of migraine Hydronephrosis of right kidney Hyperglycemia Hyperlipidemia Infection of bladder catheter Insomnia Lipomeningocele Lower extremity edema Morbid obesity with BMI of 40.0-44.9, adult Neurogenic bladder Neurogenic bowel Non-compliance Non-smoker Normochromic normocytic anemia Open wound of left foot Panic attacks PSVT (paroxysmal supraventricular tachycardia) Sepsis Sepsis Spina bifida aperta of lumbar spine Thyroid cyst Type 2 diabetes mellitus with diabetic polyneuropathy Type 2 diabetes mellitus with foot ulcer Ulcer of left heel and midfoot with fat layer exposed Uninodular goiter Urinary tract infection Urinary tract infection UTI (urinary tract infection) UTI (urinary tract infection) Weakness Home Medications furosemide 20 mg tablet 20 mg PO 2200 fluid 08/28/18 [History Last Taken 01/18/22] furosemide 40 mg tablet 40 mg PO BREAKFAST fluid 04/05/19 [History Last Taken 01/19/22] oxybutynin chloride 15 mg tablet,extended release 24 hr 15 mg PO DAILY bladder 11/12/19 [History Last Taken 01/19/22] acetaminophen 500 mg tablet 1,000 mg PO TID PRN PRN Pain Or Fever 02/12/20 [History Last Taken 09/24/20 19:24] trazodone 100 mg tablet 100 mg PO QHS sleep 01/19/21 [History Last Taken Unknown] atorvastatin 80 mg tablet 80 mg PO DAILY cholesterol 01/29/21 [History Last Taken 01/19/22] insulin aspart (niacinamide)(U-100) 100 unit/mL(3 mL) subcutaneous pen 0 - 100 ml subcut PRN PRN Hyperglycemia 01/29/21 [History Last Taken Unknown] pen needle, diabetic 32 gauge x 5/32 (BD Ultra-Fine Hope Pen Needle) #400 ea 03/05/21 [Rx Last Taken Unknown] phenazopyridine 200 mg tablet (Pyridium) 200 mg PO BID PRN PRN Pain 11/20/21 [History Last Taken Unknown] glimepiride 2 mg tablet 2 mg PO BID #180 tabs 01/21/22 [Rx Last Taken 01/19/22] lisinopril 5 mg tablet 2.5 mg PO DAILY #90 tabs 01/21/22 [Rx Last Taken 01/19/22] propranolol 10 mg tablet 5 mg PO BID heart #30 tabs 01/21/22 [Rx Last Taken 01/19/22] ondansetron 4 mg disintegrating tablet 4 mg PO Q6H PRN nausea and vomiting #7 tabs 03/22/22 [Rx Last Taken Unknown] ciprofloxacin HCl 750 mg tablet 750 mg PO BID 10 days #20 tabs 04/11/22 [Rx Last Taken Unknown] clindamycin HCl 300 mg capsule 300 mg PO 4X/DAY 10 days #40 caps 04/11/22 [Rx Last Taken Unknown] insulin glargine 100 unit/mL (3 mL) subcutaneous pen (Lantus Solostar U-100 Insulin) 33 unit subcut QHS dm 07/13/22 [History Last Taken Unknown] Allergy/AdvReac Type Severity Reaction Status Date / Time ceftriaxone [From Roceputn] Allergy Hives Verified 07/12/22 22:59 mushroom Allergy Anaphylaxis Verified 07/12/22 22:59 peanut Allergy Anaphylaxis Verified 07/12/22 22:59 fentanyl AdvReac Low blood Verified 07/12/22 22:59 pressure gabapentin AdvReac Other Verified 07/12/22 22:59 Gadolinium-MRI Contrast AdvReac Vomiting Verified 07/12/22 22:59 Medium Latex, Natural Rubber AdvReac Rash Verified 07/12/22 22:59 vancomycin AdvReac Rash Verified 07/12/22 22:59 zosyn Allergy NEEDS Uncoded 07/13/22 03:46 FOLLOW-UP Family History Mother CVA (cerebral vascular accident) Thyroid disorder Diabetes Hypertension Heart disease Hyperlipidemia Myocardial infarction, Onset Age: 54 mother had diabetes Father Cancer skin Grandmother Cancer liver Other Arthritis Skin cancer Surgical History history insertion suprapubic catheter History of cholecystectomy History of dilation and curettage History of spinal surgery Hx of foot surgery Hx of ventral hernia repair S/P colostomy S/P thyroid biopsy (~11/06/19) Status post gastric surgery Social History household members: significant other Smoking Status: Never smoker alcohol intake: current substance use type: does not use ROS ROS Narrative General: Has had intermittent fevers HENT: Denies headache, denies stuffy nose, denies sore throat EYES: Denies changes in vision Resp: Denies cough, denies shortness of breath, did feel slightly short of breath when her fever was present at home this is resolved Cardiac: Denies chest pain GI: Denies abdominal pain, positive nausea with some vomiting and poor p.o. : Denies changes in urination, chronic Cook Extremity: Left lower extremity erythema and wounds on bottom of foot MSK: Denies weakness Neuro: Denies any numbness, denies tingling Heme: Denies any bleeding or bruising Skin: Has erythema on left lower foot Psychiatric: No complaints voiced Vital Signs Vital Signs Vital Signs: 07/12/22 22:53 07/13/22 00:24 07/13/22 00:46 Temperature 101.2 F H 100.5 F H Temperature Source Oral Temporal Pulse Rate 122 H 101 H Respiratory Rate 15 16 Respiratory Pattern Normal Blood Pressure 109/71 108/74 Blood Pressure Mean 83 85 Pulse Ox 98 93 Oxygen Delivery Method Room Air Room Air 07/13/22 01:00 07/13/22 02:00 07/13/22 02:04 Temperature 98.1 F 98.4 F 98.4 F Temperature Source Temporal Temporal Temporal Pulse Rate 103 H 101 H 101 H Respiratory Rate 18 14 14 Respiratory Pattern Blood Pressure 122/81 H 104/75 104/75 Blood Pressure Mean 94 84 84 Pulse Ox 96 93 98 Oxygen Delivery Method Room Air Room Air Room Air Weight Weight: 89.811 kg Body Mass Index (BMI) 37.4 Physical Exam Narrative General: Alert, oriented, no apparent distress HEENT: Atraumatic, normocephalic Eyes: Anicteric, normal conjunctiva, extraocular movements grossly intact Neck: Supple Respiratory: Clear to auscultation bilaterally, normal respiratory effort Cardiovascular: Regular rate and rhythm GI: Soft, nontender, nondistended Extremities: No edema Musculoskeletal: Moving all extremities, some tenderness when pushing on medial side of left ankle with some pain on movement though no limit in range of motion Neuro: No overt focal neurological deficits Skin: Has 2in by 0.74in wound on heel without active drainage and lesion on underside of L MTP joint without drainage, patchy erythema over medial aspect ofL foot with patch near medial malleolus as well Psych: Cooperative Results Lab / Micro Data Result Diagrams: 07/13/22 00:15 07/13/22 00:15 Labs: Laboratory Results - last 24 hr 07/13/22 00:15: WBC 15.2 H, RBC 4.55, Hgb 12.7, Hct 38.8, MCV 85.3, MCH 27.9, MCHC 32.7, RDW Std Deviation 42.2, RDW Coeff of Claude 13.7, Plt Count 255, MPV 10.3, Immature Gran % (Auto) 0.800, Neut % (Auto) 85.3 H, Lymph % (Auto) 6.6 L, [place] % (Auto) 6.9, Eos % (Auto) 0.1, Baso % (Auto) 0.3, Absolute Neuts (auto) 13.0 H, Absolute Lymphs (auto) 1.00, Nucleated RBC % 0, ESR 57 H 07/13/22 00:15: Sodium 132 L, Potassium 4.3, Chloride 101, Carbon Dioxide 23.0, Anion Gap 8, BUN 12, Creatinine 1.08 H, Estim Creat Clear Calc 52.25, Est GFR (MDRD) Af Amer 72, Est GFR (MDRD) Non-Af 60, BUN/Creatinine Ratio 11.1, Glucose 235 H, Calcium 9.3, C-React Prot Ext Range 53.70 H 07/13/22 00:15: Lactic Acid 1.6 Radiology Impression Foot X-Ray 07/13/22 00:00 IMPRESSION: 1. Persistent soft tissue wound left heel with no radiographic evidence of adjacent osteomyelitis. 2. Chronic absence great toe distal phalanx and distal fifth metatarsal. 3. Mild calcaneal spurring. 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 in the event she is evaluated by podiatry and intervention available Pain control We will consult wound care Blood cultures Home Lasix been held due to her nausea, vomiting, poor p.o. and infection requiring hydration, monitor closely #Type 2 diabetes mellitus uncontrolled Continue Lantus Glucose checks and sliding scale insulin Holding home glimepiride #CKD stage III Avoid nephrotoxic agents Appears to be close to baseline Received 1 L, will give IV fluids Holding lisinopril with BP, restart when able #Paroxysmal supraventricular tachycardia Presently vitally stable, takes propranolol at home We will continue this with holding parameters #History of spina bifida with resultant chronic suprapubic catheter and colostomy Supportive care Oxybutynin #DVT ppx: SCDs Brittani Panda MD Time spent in the patient's overall evaluation,decision-making process, review of diagnostic data, adjustment of management, discussion with other providers, nursing nursing and ancillary staff involved in patient's care documentation, 60Minutes Charges/Coding Visit Charges Inpatient E&M: 99034 Init Hosp L2 07/13/22 0420 <Electronically signed by Brittani Panda MD> Cosigner Signature (if applicable): CC: Dr. Will Brannon MD; Dr. Brittani Panda MD~ Signed [facility] Work Phone: [phone]) 980-247702-07-2023 History of Present illness Narrative* Naty Haddad LPN - 07/05/2022 3:36 PM EST CC Supra pubic catheter in Place HPI: Debby Bailon is a 41 year old female. The patient is here now for a supra pubic catheter change with diagnosis neurogenic bladder. Procedure: Performed a catheter change. Removed fluid from balloon in the cook. The indwelling supra pubic cook size 18 Fr was removed with catheter tip intact without difficulty. Inserted 18 Fr catheter using aseptic technique. No return. Irrigated with 60 mL sterile water without difficulties. Approximately 60 mLs yellow urine with some sediment throughout noted. Bulb inflated with 10 mLs prefilled syringe- sterile water. T- Sponge applied to SPT base per patient preference attached to drainage bag. The patient tolerated the procedure well. Assessment/Plan: Successful catheter change. Return for catheter changes as planned. [facility]addad LPN [facility] Discharge instructions Patient Education 07/04/2022 00:06:23 Treating Pressure Injuries of the Foot Treating Pressure Injuries of the Foot With your healthcare provider s care, hot spots, small cracks, or sores can be treated before they get infected. If infection is already present, your provider will probably prescribe medicine. You may also need surgery if the infection has spread. Checking your feet What to look for: Use a mirror to look at the bottom of your feet each day. By doing so, you can catch small skin changes before they turn into pressure injuries. Call your healthcare provider if you notice hot spots, red streaks, swelling, or any cracks or sores. Never try to treat corns or calluses yourself. Check the soles and insides of your shoes before putting them on. Remove any objects, such as glen. Improving your overall health Do your best to control health problems that may affect your feet, such as diabetes and kidney disease. Eat right and exercise. If you are given medicines, take them as directed. If you smoke, stop. Smoking reduces blood flow and slows healing. Limiting alcohol intake may also be helpful. Cleaning the pressure injuries To help with healing, your healthcare provider may clear away the thickened skin around the pressure injury. He or she may put medicated ointment or cream on the injury to prevent infection. Sometimes a special dressing is used to help keep the wound dry. Reducing force To take pressure off hot spots and ulcers, your healthcare provider may prescribe orthoses. These custom-made shoe inserts absorb or move pressure from problem areas. You may need special shoes or temporary casts. Using antibiotics To control or prevent infection, your healthcare provider may prescribe antibiotics. Take them all,and take them as directed. If you stop using an antibiotic too soon, the infection may come back. If surgery is needed You may need surgery if infection enters deep tissues or bone. In such cases, your healthcare provider cleans away the infection while removing as little tissue or bone as possible. You may also be given intravenous (IV) antibiotics to fight the infection. 9975-[address] [employer] [place] [address]. All rights reserved. This information is not intended as a substitute for professional medical care. Always follow yourhealthcare professional's instructions. Follow Up Care 07/03/2022 22:36:37 With:your can tester Address:Unknown When:2-4 days With:WILL BRANNON Address: [address] [place] [address]- Business (1) When:2-[address] [facility] 02-06-2023 Note Discharge Instructions Thank you for allowing [facility] to assist you with your healthcare needs. The following is importantdischarge information regarding your hospital visit. Diagnosis from Today's Visit Fall Left leg pain What to Do Next Instructions from Your Care Team No qualifying data available. Post Acute Orders No qualifying data available. You Need to Schedule the Following Appointments Follow Up with your can tester When Within 2-4 days Follow Up with WILL BRANNON When Within 2-4 days Where: [address] [place] [address]- Business (1) Allergies Mushrooms (Throat swelling) Peanuts (Throat swelling) Rocephin (Hives) cephalosporins (Anaphylaxis, Hives) gabapentin (psychotic breakdown) Contrast dye (Vomiting) Latex (Hives) penicillin (Unknown) Medications Please ask your primary doctor or pharmacist before taking any other medication not listed, including over the counter drugs, herbal medications, vitamins and or supplements as they may interact withyour home medications. What How Much When Instructions Last Dose New doxycycline (doxycycline monohydrate 100 mg oral capsule) 1 cap by mouth Two (2) times a day Duration: 10 Days Printed Prescription Please take this list to your next doctor s visit. Bring all medications you take, including over the counter medications, herbals and other supplements with you to your doctor s visit. Patients and families are reminded to discard old lists and to update any records with all medication providers or retail pharmacies. Education Materials Treating Pressure Injuries of the Foot With your healthcare provider s care, hot spots, small cracks, or sores can be treated before they get infected. If infection is already present, your provider will probably prescribe medicine. You may also need surgery if the infection has spread. Checking your feet What to look for: Use a mirror to look at the bottom of your feet each day. By doing so, you can catch small skin changes before they turn into pressure injuries. Call your healthcare provider if you notice hot spots, red streaks, swelling, or any cracks or sores. Never try to treat corns or calluses yourself. Check the soles and insides of your shoes before putting them on. Remove any objects, such as glen. Improving your overall health Do your best to control health problems that may affect your feet, such as diabetes and kidney disease. Eat right and exercise. If you are given medicines, take them as directed. If you smoke, stop. Smoking reduces blood flow and slows healing. Limiting alcohol intake may also be helpful. Cleaning the pressure injuries To help with healing, your healthcare provider may clear away the thickened skin around the pressure injury. He or she may put medicated ointment or cream on the injury to prevent infection. Sometimes a special dressing is used to help keep the wound dry. Reducing force To take pressure off hot spots and ulcers, your healthcare provider may prescribe orthoses. These custom-made shoe inserts absorb or move pressure from problem areas. You may need special shoes or temporary casts. Using antibiotics To control or prevent infection, your healthcare provider may prescribe antibiotics. Take them all,and take them as directed. If you stop using an antibiotic too soon, the infection may come back. If surgery is needed You may need surgery if infection enters deep tissues or bone. In such cases, your healthcare provider cleans away the infection while removing as little tissue or bone as possible. You may also be given intravenous (IV) antibiotics to fight the infection. 2611-[address] [employer]. [address] [place] [address]. All rights reserved. This information is not intended as a substitute for professional medical care. Always follow yourhealthcare professional's instructions. Additional Information VACCINATE! IT SAVES LIVES! Members of the community who have not yet received the COVID-19 vaccine and would like to receive it can visit one of [facility] vaccine clinics. There are many vaccine clinic locations within the [facility]. For locations and available times, please visit [email or web address]. It is important to note that some COVID mobile vaccine clinics are held outdoors and may be canceled in rainy orstormy conditions. To learn more about pediatric vaccinations (ages 5-11), we invite you to visit the [facility] webpage. [email or web address] learn more about the COVID-19 vaccine, we invite you to visit the [facility] website for a list of frequently asked questions. [email or web address] [facility] Patient Portal Access Instructions: Stay connected with your healthcare team and access your personal medical information anytime with the [facility] Patient Portal. If you would like a full copy of your medical records please contact the [facility] Medical Records Department Monday through Monday between 8a.m. and 4:30p.m. Please follow the directions below to access the portal: 1.Access the email account you provided upon registration to the [facility].2.Look for an invitation email from [facility].3.Open the email and access the invitation link: Accept Invitation to [facility].Fill in the required hartley to create your account. Sign into [email or web address] with your username and password that you created in the above steps to stay up to date. You can then view a summary of results, a summary of your visits, and the ability to download your summaries to your computer or send the information securely to a physician. Remember that your healthcare information is confidential, so carefully consider who you will allow to register on the [facility] Patient Portal for access to your information. You can also access the [email or web address] Patient Portal on the [employer]. Simply click on Health Records under [employer] and then click on the [facility] logo. HOW TO SAFELY DISPOSE OF PRESCRIPTION MEDICATIONS Please use one of the following methods to safely dispose of your unused medications. 1.Use a drug disposal kit: the drug disposal pouch allows you to safely discard your old and unuseddrugs. Ask your nurse to give you one when you are discharged.2.Visit a local take-back location: Many local pharmacies and police departments have programs that collect old and unwanted prescriptiondrugs. Call your local pharmacy or go to http://bit.[employer]/1Z2Au9t to find one close to you.3.Make use of household items: Use cat litter or old coffee grounds to dispose medications if other options arenot available. Mix your drugs with these household products, seal them in an airtight container andthrow it into the garbage. Call [facility]: [phone] to be sure your drugs can be disposed of in this way. Some medicines may require a different approach.4.Never flush your medications down the toilet. IF YOU HAVE BEEN PRESCRIBED AN OPIOIDS FOR PAIN If you have been prescribed an opioid (such as hydrocodone, oxycodone or morphine), it is critical to understand the possible side effects and risks of opioid pain medications. Even when taken as directed, opioids can have several side effects including: Tolerance, meaning you might need to take more of a medication for the same pain relief. Nausea, vomiting and/or constipation. Sleepiness, dizziness, dry mouth, confusion, depression or itching. Physical dependence, meaning you have withdrawal symptoms when a medication is stopped ? this can develop within a few days. KNOW YOUR RESPONSIBILITIES It is important to know exactly how much and how often to take the opioid pain medications you are prescribed. Never take opioids in higher amounts or more often than prescribed. Do not combine opioids with alcohol or other drugs that cause drowsiness, such as benzodiazepines, also known as benzos,including diazepam and alprazolam, muscle relaxants or sleep aids. Never sell or share prescriptionopioids. This is illegal. Store opioids in a secure place and out of reach of others (including children, family, friends and visitors). The last page(s) of this document has been signed and retained as a CHART COPY Signatures Patient Education Materials Treating Pressure Injuries of the Foot Medication Leaflets My discharge plan and instructions have been reviewed and explained to me and IUVALDO ANGELA Lunderstand my current condition and have read and understand these discharge instructions. I have received a written copy of the plan/instructions. If I have questions, I am aware that I should contact my doctor. 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02-05-2023 Note ORIGINAL EXAMINATION: TWO XRAY VIEWS OF THE LEFT TIBIA/FIBULA 07/03/2022 11:39 pm COMPARISON: Left ankle/foot radiograph same day. HISTORY: ORDERING SYSTEM PROVIDED HISTORY: Reason for Exam: Recent fall with left leg pain. FINDINGS: No acute fracture or dislocation. Proximal and distal articulations are intact. Diffuse lower leg soft tissue swelling again noted. IMPRESSION: No acute fracture dislocation. Diffuse lower leg soft tissue swelling. I have personally reviewed the images of this examination and agree with the resident's findings and interpretation. Interpreted by: Wallace Barrera MD Preliminary Report By: Lencho Newell Electronically signed By Wallace Barrera MD Dictated Date: 07/03/2022 11:51:27 PM Prelim Date: 07/03/2022 11:52:42 PM Sign Date: 07/03/2022 11:59:54 PM Ordering Provider: [facility] [place] Note ORIGINAL EXAMINATION: 6 XRAY VIEWS OF THE LEFT FOOT AND ANKLE 07/03/2022 11:38 pm COMPARISON: Left foot radiographs on 12/28/2021. HISTORY: ORDERING SYSTEM PROVIDED HISTORY: Reason for Exam: Fall 3 days ago. Pain entire left leg. Open sore of left heel. FINDINGS: No acute fracture or dislocation. Talar dome and ankle mortise are intact. 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 Amputation the head of the 1st proximal phalanx. Mild posterior calcaneal enthesopathy. No tibiotalar effusion. Soft tissue ulceration near the plantar aspect of the calcaneus measures up to 2.9 cm in AP dimension. Otherwise, no appreciable soft tissue gas. Diffuse lower leg soft tissue swelling. IMPRESSION: No acute fracture or dislocation. Large soft tissue ulceration near the plantar aspect of the calcaneus. No radiographic evidence of soft tissue gas or osteomyelitis. Diffuse lower leg/ankle soft tissue swelling. I have personally reviewed the images of this examination and agree with the resident's findings and interpretation. Interpreted by: Wallace Barrera MD Preliminary Report By: Lencho Newell Electronically signed By Wallace Barrera MD Dictated Date: 07/03/2022 11:45:07 PM Prelim Date: 07/03/2022 11:51:19 PM Sign Date: 07/03/2022 11:59:29 PM Ordering Provider: [place] [address]-05-2023 Note ORIGINAL EXAMINATION: TWO XRAY VIEWS OF THE LEFT TIBIA/FIBULA 07/03/2022 11:39 pm COMPARISON: Left ankle/foot radiograph same day. HISTORY: ORDERING SYSTEM PROVIDED HISTORY: Reason for Exam: Recent fall with left leg pain. FINDINGS: No acute fracture or dislocation. Proximal and distal articulations are intact. Diffuse lower leg soft tissue swelling again noted. IMPRESSION: No acute fracture dislocation. Diffuse lower leg soft tissue swelling. I have personally reviewed the images of this examination and agree with the resident's findings and interpretation. Interpreted by: Wallace Barrera MD Preliminary Report By: Lencho Newell Electronically signed By Wallace Barrera MD Dictated Date: 07/03/2022 11:51:27 PM Prelim Date: 07/03/2022 11:52:42 PM Sign Date: 07/03/2022 11:59:54 PM Ordering Provider: [facility] [place]02-05-2023 Note ORIGINAL EXAMINATION: 6 XRAY VIEWS OF THE LEFT FOOT AND ANKLE 07/03/2022 11:38 pm COMPARISON: Left foot radiographs on 12/28/2021. HISTORY: ORDERING SYSTEM PROVIDED HISTORY: Reason for Exam: Fall 3 days ago. Pain entire left leg. Open sore of left heel. FINDINGS: No acute fracture or dislocation. Talar dome and ankle mortise are intact. 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 Amputation the head of the 1st proximal phalanx. Mild posterior calcaneal enthesopathy. No tibiotalar effusion. Soft tissue ulceration near the plantar aspect of the calcaneus measures up to 2.9 cm in AP dimension. Otherwise, no appreciable soft tissue gas. Diffuse lower leg soft tissue swelling. IMPRESSION: No acute fracture or dislocation. Large soft tissue ulceration near the plantar aspect of the calcaneus. No radiographic evidence of soft tissue gas or osteomyelitis. Diffuse lower leg/ankle soft tissue swelling. I have personally reviewed the images of this examination and agree with the resident's findings and interpretation. Interpreted by: Wallace Barrera MD Preliminary Report By: Lencho Newell Electronically signed By Wallace Barrera MD Dictated Date: 07/03/2022 11:45:07 PM Prelim Date: 07/03/2022 11:51:19 PM Sign Date: 07/03/2022 11:59:29 PM Ordering Provider: [facility]01-10-2023 History of Present illness Narrative* Naty Haddad EVELIN - 06/07/2022 4:13 PM EST CC Supra pubic catheter in Place HPI: Debby Bailon is a 41 year old female. The patient is here now for a supra pubic catheter change with diagnosis neurogenic bladder. Procedure: Performed a catheter change. Removed fluid from balloon in the cook. The indwelling supra pubic cook size 18 Fr was removed with catheter tip intact without difficulty. Inserted 18 Fr catheter using aseptic technique. No return. Irrigated with 60 mL sterile water without difficulties. Approximately 60 mLs yellow urine with some sediment throughout noted. Bulb inflated with 10 mLs prefilled syringe- sterile water. T- Sponge applied to SPT base per patient preference. Patient states she plans to call Dr. Hancock tomorrow due to feeling as if she is having bladder stones returning. The patient tolerated the procedure well. Assessment/Plan: Successful catheter change. Return for catheter changes as planned. aNty Haddad LPN [facility] + Plan note Extracted from: Title:History and Physical Author:JERAD GONZALEZ APRN-BURIAL AGENT Date:06/05/22 1. Frequent UTI 2. Type 2 diabetes mellitus 3. Spina bifida 4. Neurogenic bladder disorder Frequent UTI's- patient has had chronic UTIs. Has history of resistance and unusual bacteria. Patient has allergies to cephalosporins and penicillin. She received a dose of meropenem last night in the emergency department and a dose of meropenem today. Patient reported fevers however since admission temperatures have been between 36.5 to 36.8 C. She has been normotensive. No tachycardia, no tachypnea. Adequate oxygen saturations on room air. Reports abdominal pain but her abdominal exam is benign. White blood cell count is 10,300. Absolute monocyte is 1.2. Remainder of differential is within normal limits. Patient has a suprapubic catheter and urine was positive for nitrates and small amount of leukocyte Estrace with 3+ bacteria. Last culture collected and resulted from [facility] on 05/15/2023 showed mixed fred. Patient was given a prescription for Bactrim but she never filled this. I called her pharmacy to verify and there is no evidence of this on an external fill history. Given patient's history of resistance and frequent treatment, I will suspend antibiotic coverage at this time. I am recommending that patient follow-up with infectious disease outpatient. Greater than 50% of today's visit was spent educating patient on infection prevention as well has glucose control for her diabetes to help in reducing incidence of infection. Type 2 diabetes mellitus- Glucose goal 180 or less and avoid hypoglycemia. Add corrective sliding scale insulin. ADA diet. Neurogenic bladder chronic indwelling suprapubic catheter. History of spina bifida, migraines, insomnia, neurogenic bowel, hyperlipidemia, depression. Mild renal insufficiency- LR@100ml/hr DVT prophylaxis: SCDs Labs, diagnostics, and progress notes reviewed as noted in HPI Code Status: Full code Plan of care discussed with patient. All questions answered. Patient verbalizes understanding is agreeable to plan of care. This dictation was performed using voice recognition software and may include grammatical and/or spelling errors. Diagnostic Tests Pending * Urine Culture 06/04/[address] [facility] 01-08-2023 Hospital Discharge instructions Patient Education 06/05/2022 10:50:47 Infection Prevention in the Home Infection Prevention in the Home If you have an infection, may have been exposed to an infection, or are taking care of someone who has an infection, it is important to know how to keep the infection from spreading. Follow your health care provider's instructions and use these guidelines to help stop the spread of infection. How infections are spread In order for an infection to spread, the following must be present: A germ. This may be a virus, bacteria, fungus, or parasite. A place for the germ to live. This may be: ?On or in a person, animal, plant, or food. ?In soil or water. ?On surfaces, such as a door handle. A person or animal who can develop a disease if the germ enters the body (host). The host does not have resistance to the germ. A way for the germ to enter the host. This may occur by: ?Direct contact with an infected person or animal. This can happen through shaking hands or hugging. Some germs can also travel through the air and spread to others. This can happen when an infected person coughs or sneezes on or near other people. ?Indirect contact. This occurs when the germ enters the host through contact with an infected object. Examples include: ?Eating or drinking food or water that has the germ (is contaminated). ?Touching a contaminated surface with your hands, and then touching your face, eyes, nose, or mouth. Supplies needed: Soap. Alcohol-based hand barber apprentice. Standard cleaning products. Disinfectants, such as bleach. Reusable cleaning cloths, sponges, or paper towels. Disposable or reusable utility gloves. How to prevent infection from spreading There are several things that you can do to help prevent infection from spreading. Take these general actions Everyone should take the following actions to prevent the spread of infection: Wash your hands often with soap and water for at least 20 seconds. If soap and water are not available, use alcohol-based hand barber apprentice. Avoid touching your face, mouth, nose, or eyes. Cough or sneeze into a tissue, sleeve, or elbow instead of into your hand or into the air. ?If you cough or sneeze into a tissue, throw it away immediately and wash your hands. Keep your bathroom clean Provide soap. Change towels and washcloths frequently. Change toothbrushes often and store them separately in a clean, dry place. Clean and disinfect all surfaces, including the toilet, floor, tub, shower, and sink. Do not share personal items, such as razors, toothbrushes, deodorant, patrick, brushes, towels, and washcloths. Maintain hygiene in the kitchen Wash your hands before and after preparing food and before you eat. Clean the inside of your refrigerator each week. Keep your refrigerator set at 40 F (4 C) or less, and set your freezer at 0 F ( 18 C) or less. Keep work surfaces clean. Disinfect them regularly. Wash your dishes in hot, soapy water. Air-dry your dishes or use a shoe shanker. Do not share dishes or eating utensils. Handle food safely Store food carefully. Refrigerate leftovers promptly in covered containers. Throw out stale or spoiled food. Thaw foods in the refrigerator or microwave, not at room temperature. Serve foods at the proper temperature. Do not eat raw meat. Make sure it is cooked to the appropriate temperature. Cook eggs until they are firm. Wash fruits and vegetables under running water. Use separate cutting boards, plates, and utensils for raw foods and cooked foods. Use a clean spoon each time you sample food while cooking. Do laundry the right way Wear gloves if laundry is visibly soiled. Do not shake soiled laundry. Doing that may send germs into the air. Wash laundry in hot water. If you cannot wash the laundry right away, place it in a plastic bag and wash it as soon as possible. Be careful around animals and pets Wash your hands before and after touching animals. If you have a pet, ensure that your pet stays clean. Do not let people with weak immune systems touch bird droppings, fish tank water, or a litter box. ?If you have a pet cage or litter box, be sure to clean it every day. If you are sick, stay away from animals and have someone else care for them if possible. How to clean and disinfect objects and surfaces Precautions Some disinfectants work for certain germs and not others. Read the custody assistant's instructions or read online resources to determine if the product you are using will work for the germ you are tryingto remove. If you choose to use bleach, use it safely. Never mix it with other cleaning products, especially those that contain ammonia. This mixture can create a dangerous gas that may be deadly. Keep proper movement of fresh air in your home (ventilation). Pour used mop water down the utility sink or toilet. Do not pour this water down the kitchen sink. Objects and surfaces If surfaces are visibly soiled, clean them first with soap and water before disinfecting. Disinfect surfaces that are frequently touched every day. This may include: ?Counters. ?Tables. ?Doorknobs. ?Sinks and faucets. ?Electronics, such as: ?Phones. ?Remote controls. ?Keyboards. ?Computers and tablets. Cleaning supplies Some cleaning supplies can breed germs. Take good care of them to prevent germs from spreading. To do this: Soak toilet brushes, mops, and sponges in bleach and water for 5 minutes after each use, or according to custody assistant's instructions. Wash reusable cleaning cloths and sanitize sponges after each use. Throw away disposable gloves after one use. Replace reusable utility gloves if they are cracked or torn or if they start to peel. Additional actions if you are sick If you live with other people: Avoid close contact with those around you. Stay at least 3 ft (1 m) away from others, if possible. Use a separate bathroom, if possible. If possible, sleep in a separate bedroom or in a separate bed to prevent infecting other household members. ?Change bedroom linens each week or whenever they are soiled. Have everyone in the household wash hands often with soap and water. If soap and water are not available, use alcohol-based hand barber apprentice. In general: Stay home except to get medical care. Call ahead before visiting your health care provider. Ask others to get groceries and household supplies and to refill prescriptions for you. Avoid public areas. Try not to take public transportation. If you can, wear a mask if you need to go out of the house, or if you are in close contact with someone who is not sick. Avoid visitors until you have completely recovered, or until you have no signs and symptoms of infection. Avoid preparing food or providing care for others. If you must prepare food or provide care for others, wear a mask and wash your hands before and after doing these things. Where to find more information Centers for Disease Control and Prevention: www.cdc.gov/nonpharmaceutical-interventions/index.html World Health Organization (WHO): www.who.int/infection-prevention/about/en/ Association for Professionals in Infection Control and Epidemiology: professionals.site.apic.org/xkpgmhbb-na-qczy/xjt-jykzckazov-suseqte/home/ Summary It is important to know how to keep the infection from spreading. Make sure everyone in your household washes their hands often with soap and water. Disinfect surfaces that are frequently touched every day. If you are sick, stay home except to get medical care. This information is not intended to replace advice given to you by your health care provider. Make sure you discuss any questions you have with your health care provider. Document Released: 02/21/2009 Document Revised: 09/10/2019 Document Reviewed: 08/09/2019 [employer] Patient Education 2020 H.BLOOM. Follow Up Care 06/04/2022 22:10:16 With:BEV NGO MD [address] [facility] [address] [phone] When:5 to 7 days Comments:Call to make an appt with this infectious disease doctor due to frequent UTI's, unusual bacteria inurine, antibiotic resistance, and multiple allergies to antibiotics. With:WILL BRANNON MD Address: [address] [place] [address]- When:2-[address] [facility] 01-08-2023 Nurse Discharge summary Patient discharged home. Discharge instructions provided. Patient was educated on irrigating her suprapubic catheter as she should continue to do so once a day until seeing urology Monday. Patient was instructed to call the infectious disease doctor provided to her in her discharge instructions for further evaluation of her urine. Patient understood discharge instructions. [facility]01-08-2023 Note Discharge Instructions Thank you for allowing [facility] to assist you with your healthcare needs. The following is importantdischarge information regarding your hospital visit. Your Care Team [facility] Inpatient Medicine Your Diagnosis Frequent UTI Type 2 diabetes mellitus Spina bifida Neurogenic bladder disorder Fever Flank pain What to do next Instructions From Your Doctor You came to the emergency department with concerns for urinary tract infection. You have no signs of infection. A urine culture was collected. If this should come back positive we will call you with the results and a plan. You did receive 2 doses of meropenem while you were here. Please plan on following up with your PCP within the next 2 to 4 days. Due to your history of frequent UTIs, antibiotic resistance, unusual bacteria, it would be beneficial to have recommendations from an infectious disease physician. The name and phone number of an infectious disease physician is on your discharge paperwork. Please call first thing Monday morning to secure an appointment. Please discuss the possibility of bladder/catheter irrigation with your urologist at the next appointment. You had a great deal of thick, crusted sediment in your tubing that the nurse was able to clear with irrigation of the tube. Follow Up Appointments Follow Up with BEV NGO MD When Within 5 to 7 days Why: Call to make an appt with this infectious disease doctor due to frequent UTI's, unusual bacteria in urine, antibiotic resistance, and multiple allergies to antibiotics. Where: [address] [facility] [place] [phone] Follow Up with WILL BRANNON MD When Within 2-4 days Where: [address] [place] [address]- The Following Activity and Diet Have Been Ordered for You Discharge Activity - Ordered -- Resume your pre-hospitalization activity, 06/05/22 9:57:00 EST Discharge Diet - Ordered -- No changes were made to your diet during your hospital stay. Please resume your pre hospitalization diet on discharge., 06/05/22 9:57:00 EST Allergies Mushrooms (Throat swelling) Peanuts (Throat swelling) Rocephin (Hives) cephalosporins (Anaphylaxis, Hives) gabapentin (psychotic breakdown) Contrast dye (Vomiting) Latex (Hives) penicillin (Unknown) Medications Please ask your primary doctor or pharmacist before taking any other medication not listed, including over the counter drugs, herbal medications, vitamins and or supplements as they may interact withyour home medications. What How Much When Instructions Last Dose Unchanged furosemide (Lasix 20 mg oral tablet) 2 tab(s) by mouth Once a day (in the morning) n/a Unchanged furosemide (Lasix 20 mg oral tablet) 1 tab(s) by mouth Once a day (in the evening) n/a Unchanged insulin aspart (Novolog) (Fiasp FlexTouch 100 units/ mL injectable solution) 15 unit(s) Subcutaneous Three (3) times a day before meals n/a Unchanged insulin aspart (Novolog) (Fiasp FlexTouch 100 units/ mL injectable solution) See instructions Sliding scale TIDAC 1 unit 8:30 AM Unchanged insulin glargine (Lantus) 30 unit(s) Subcutaneous Daily at bedtime n/a Unchanged lisinopril (lisinopril 2.5 mg oral tablet) 1 tab(s) by mouth Once a day n/a Unchanged oxybutynin (oxybutynin 15 mg/ 24 hr oral tablet, extended release) 1 tab(s) by mouth Once a day (in the evening) 9 AM Unchanged propranolol (propranolol 20 mg oral tablet) 0.5 tab(s) by mouth Two (2) times a day 10:30 AM What How Much When Comments Stop Taking phenazopyridine (phenazopyridine 200 mg oral tablet) 1 tab(s) by mouth Three (3) times a day after meals as needed for as needed for urinary discomfort Please take this list to your next doctor s visit. Bring all medications you take, including over the counter medications, herbals and other supplements with you to your doctor s visit. Patients and families are reminded to discard old lists and to update any records with all medication providers or retail pharmacies. Education Materials Infection Prevention in the Home If you have an infection, may have been exposed to an infection, or are taking care of someone who has an infection, it is important to know how to keep the infection from spreading. Follow your health care provider's instructions and use these guidelines to help stop the spread of infection. How infections are spread In order for an infection to spread, the following must be present: A germ. This may be a virus, bacteria, fungus, or parasite. A place for the germ to live. This may be: ? On or in a person, animal, plant, or food. ? In soil or water. ? On surfaces, such as a door handle. A person or animal who can develop a disease if the germ enters the body (host). The host does not have resistance to the germ. A way for the germ to enter the host. This may occur by: ? Direct contact with an infected person or animal. This can happen through shaking hands or hugging.Some germs can also travel through the air and spread to others. This can happen when an infected person coughs or sneezes on or near other people. ? Indirect contact. This occurs when the germ enters the host through contact with an infected object. Examples include: ? Eating or drinking food or water that has the germ (is contaminated). ? Touching a contaminated surface with your hands, and then touching your face, eyes, nose, or mouth. Supplies needed: Soap. Alcohol-based hand barber apprentice. Standard cleaning products. Disinfectants, such as bleach. Reusable cleaning cloths, sponges, or paper towels. Disposable or reusable utility gloves. How to prevent infection from spreading There are several things that you can do to help prevent infection from spreading. Take these general actions Everyone should take the following actions to prevent the spread of infection: Wash your hands often with soap and water for at least 20 seconds. If soap and water are not available, use alcohol-based hand barber apprentice. Avoid touching your face, mouth, nose, or eyes. Cough or sneeze into a tissue, sleeve, or elbow instead of into your hand or into the air. ? If you cough or sneeze into a tissue, throw it away immediately and wash your hands. Keep your bathroom clean Provide soap. Change towels and washcloths frequently. Change toothbrushes often and store them separately in a clean, dry place. Clean and disinfect all surfaces, including the toilet, floor, tub, shower, and sink. Do not share personal items, such as razors, toothbrushes, deodorant, patrick, brushes, towels, and washcloths. Maintain hygiene in the kitchen Wash your hands before and after preparing food and before you eat. Clean the inside of your refrigerator each week. Keep your refrigerator set at 40 F (4 C) or less, and set your freezer at 0 F ( 18 C) or less. Keep work surfaces clean. Disinfect them regularly. Wash your dishes in hot, soapy water. Air-dry your dishes or use a shoe shanker. Do not share dishes or eating utensils. Handle food safely Store food carefully. Refrigerate leftovers promptly in covered containers. Throw out stale or spoiled food. Thaw foods in the refrigerator or microwave, not at room temperature. Serve foods at the proper temperature. Do not eat raw meat. Make sure it is cooked to the appropriate temperature. Cook eggs until they are firm. Wash fruits and vegetables under running water. Use separate cutting boards, plates, and utensils for raw foods and cooked foods. Use a clean spoon each time you sample food while cooking. Do laundry the right way Wear gloves if laundry is visibly soiled. Do not shake soiled laundry. Doing that may send germs into the air. Wash laundry in hot water. If you cannot wash the laundry right away, place it in a plastic bag and wash it as soon as possible. Be careful around animals and pets Wash your hands before and after touching animals. If you have a pet, ensure that your pet stays clean. Do not let people with weak immune systems touch bird droppings, fish tank water, or a litter box. ? If you have a pet cage or litter box, be sure to clean it every day. If you are sick, stay away from animals and have someone else care for them if possible. How to clean and disinfect objects and surfaces Precautions Some disinfectants work for certain germs and not others. Read the custody assistant's instructions or read online resources to determine if the product you are using will work for the germ you are tryingto remove. If you choose to use bleach, use it safely. Never mix it with other cleaning products, especially those that contain ammonia. This mixture can create a dangerous gas that may be deadly. Keep proper movement of fresh air in your home (ventilation). Pour used mop water down the utility sink or toilet. Do not pour this water down the kitchen sink. Objects and surfaces If surfaces are visibly soiled, clean them first with soap and water before disinfecting. Disinfect surfaces that are frequently touched every day. This may include: ? Counters. ? Tables. ? Doorknobs. ? Sinks and faucets. ? Electronics, such as: ? Phones. ? Remote controls. ? Keyboards. ? Computers and tablets. Cleaning supplies Some cleaning supplies can breed germs. Take good care of them to prevent germs from spreading. To do this: Soak toilet brushes, mops, and sponges in bleach and water for 5 minutes after each use, or according to custody assistant's instructions. Wash reusable cleaning cloths and sanitize sponges after each use. Throw away disposable gloves after one use. Replace reusable utility gloves if they are cracked or torn or if they start to peel. Additional actions if you are sick If you live with other people: Avoid close contact with those around you. Stay at least 3 ft (1 m) away from others, if possible. Use a separate bathroom, if possible. If possible, sleep in a separate bedroom or in a separate bed to prevent infecting other household members. ? Change bedroom linens each week or whenever they are soiled. Have everyone in the household wash hands often with soap and water. If soap and water are not available, use alcohol-based hand barber apprentice. In general: Stay home except to get medical care. Call ahead before visiting your health care provider. Ask others to get groceries and household supplies and to refill prescriptions for you. Avoid public areas. Try not to take public transportation. If you can, wear a mask if you need to go out of the house, or if you are in close contact with someone who is not sick. Avoid visitors until you have completely recovered, or until you have no signs and symptoms of infection. Avoid preparing food or providing care for others. If you must prepare food or provide care for others, wear a mask and wash your hands before and after doing these things. Where to find more information Centers for Disease Control and Prevention: www.cdc.gov/nonpharmaceutical-interventions/index.html World Health Organization (WHO): www.who.int/infection-prevention/about/en/ Association for Professionals in Infection Control and Epidemiology: professionals.site.apic.org/wgntprwx-nl-vqzm/sqp-xrbcpizqgg-mcyamwf/home/ Summary It is important to know how to keep the infection from spreading. Make sure everyone in your household washes their hands often with soap and water. Disinfect surfaces that are frequently touched every day. If you are sick, stay home except to get medical care. This information is not intended to replace advice given to you by your health care provider. Make sure you discuss any questions you have with your health care provider. Document Released: 02/21/2009 Document Revised: 09/10/2019 Document Reviewed: 08/09/2019 [employer] Patient Education 2020 [employer] Additional Information VACCINATE! IT SAVES LIVES! Members of the community who have not yet received the COVID-19 vaccine and would like to receive it can visit one of [facility] vaccine clinics. There are many vaccine clinic locations within the [facility]. For locations and available times, please visit https://[email or web address].gov/. It is important to note that some COVID mobile vaccine clinics are held outdoors and may be canceled in rainy or stormy conditions. To learn more about pediatric vaccinations (ages 5-11), we invite you to visit the [facility] webpage. https://www.[facility].org/pages/2457-Ckeun-Gevacupmtuc-Xsghljcqzp-Usqnp-Qxq stions.htmlTo learn more about the COVID-19 vaccine, we invite you to visit the [facility] website for a list of frequently asked questions. [email or web address]-csr-Wizjlolf/xydgb-Tmomzpr-Kanxfgmeba _Asked-Questions.pdf [facility] Patient Portal Access Instructions: Stay connected with your healthcare team and access your personal medical information anytime with the [facility] Patient Portal.If you would like a full copy of your medical records, please contact the [facility] Medical Records Department, Monday through Monday between 8a.m. and 4:30p.m. Please follow the directions below to access the portal: 1.Access the email account you provided upon registration to the [facility].2.Look for an invitation email from [facility].3.Open the email and access the invitation link: Accept Invitation to [facility]4.Fill in the required hartley to create your account. Sign into [email or web address] with your username and password that you created in the above steps to stay up to date. You can then view a summary of results, a summary of your visits, and the ability to download your summaries to your computer or send the information securely to a physician. Remember that your healthcare information is confidential, so carefully consider who you will allow to register on the [facility] Patient Portal for access to your information. You can also access the [facility] Patient Portal on the [employer] robert. Simply click on Health Records under [employer] and then click on the [facility] logo. HOW TO SAFELY DISPOSE OF PRESCRIPTION MEDICATIONS Please use one of the following methods to safely dispose of your unused medications. 1.Use a drug disposal kit: the drug disposal pouch allows you to safely discard your old and unuseddrugs. Ask your nurse to give you one when you are discharged.2.Visit a local take-back location: Many local pharmacies and police departments have programs that collect old and unwanted prescriptiondrugs. Call your local pharmacy or go to http://bit.ly/7V0Yk4q to find one close to you.3.Make use of household items: Use cat litter or old coffee grounds to dispose medications if other options arenot available. Mix your drugs with these household products, seal them in an airtight container andthrow it into the garbage. Call [facility]: [phone] to be sure your drugs can be disposed of in this way. Some medicines may require a different approach.4.Never flush your medications down the toilet. IF YOU HAVE BEEN PRESCRIBED AN OPIOID FOR PAIN If you have been prescribed an opioid (such as hydrocodone, oxycodone or morphine), it is critical to understand the possible side effects and risks of opioid pain medications. Even when taken as directed, opioids can have several side effects including: Tolerance, meaning you might need to take more of a medication for the same pain relief. Nausea, vomiting and/or constipation. Sleepiness, dizziness, dry mouth, confusion, depression or itching. Physical dependence, meaning you have withdrawal symptoms when a medication is stopped, can develop within a few days. KNOW YOUR RESPONSIBILITIES It is important to know exactly how much and how often to take the opioid pain medications you are prescribed. Never take opioids in higher amounts or more often than prescribed. Do not combine opioids with alcohol or other drugs that cause drowsiness, such as benzodiazepines, also known as benzos, including diazepam and alprazolam, muscle relaxants or sleep aids. Never sell or share prescription opioids. This is illegal. Store opioids in a secure place and out of reach of others (including children, family, friends and visitors). The last page of this document has been signed and retained as a CHART COPY. Signatures Patient Education Materials Infection Prevention in the Home Medication Leaflets My discharge plan and instructions have been reviewed and explained to me and IUVALDO ANGELA Lunderstand my current condition and have read and understand these discharge instructions. I have received a written copy of the plan/instructions. If I have questions, I am aware that I should contact my doctor. 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 Now reports kidney and bladder pain, odor to urine, fever, weakness. History of Present Illness 41-year-old female with past medical history significant for neurogenic bladder, type 2 diabetes mellitus, spina bifida, migraines, insomnia, depression, hyperlipidemia frequent UTIs, neurogenic bowel with colostomy bag. Patient presented to [facility] emergency department on 06/04/2022 with reports of bladder painfoul urine odor. In the emergency department patient has been afebrile and hemodynamically stable with adequate oxygen saturations on room air. No leukocytosis. Urinalysis positive for nitrates and small amount of leukocyte Estrace with 3+ bacteria. Glucose elevated to 321 BUN and creatinine 13 and1.04 with a GFR of 59. Patient was treated with meropenem and given a dose of [place] and Toradol. This morning patient is afebrile and hemodynamically stable with adequate oxygen saturations on room air. No leukocytosis. Differential is unremarkable. Patient states that she had her catheter changed on 05/10/2022 at her urologist office. She then presented to [facility] emergency department on 05/15/2022 with concerns for UTI. She was discharged with a prescription for Bactrim. Culture showed mixe d fred. Patient [facility] however there is no record of this being filled there or any other pharmacy. Patient denies any fever or chills today. No headaches or dizziness. No chest pain or palpitations.Admits generalized abdominal pain. Nonspecific. Has a colostomy and this is draining. Suprapubic catheter is draining. Review of Systems See HPI for specific ROS. All other systems reviewed and negative. Physical Exam Vitals and Measurements T: 36.5 C (Oral) TMIN: 36.5 C (Oral) TMAX: 36.9 C (Oral) HR: 64 RR: 18 BP: 111/75 SpO2: 97% HT: 155cm WT: 92.2 kg BMI: 38.38 Weight Current Weight Dosing Weight: 92.2 kg (06/05/22) Current Weight: 92.2 kg (06/05/22) GEN: Appears chronically ill EYES: No conjunctival erythema, drainage. EOMI EARS: Hearing grossly intact. NOSE: No nasal discharge. THROAT: Oral cavity and pharynx pink and moist. CHEST: Normal S1 and S2. Rhythm is regular. Clear to auscultation, without rales, rhonchi, wheezing. ABD: Positive bowel sounds x 4 quads. Soft, nondistended, nontender. No guarding or rebound tenderness. No suprapubic or CVA tenderness. Colostomy present. Suprapubic catheter present and draining cloudy urine. EXT: No significant deformity or joint abnormality. No edema. Peripheral pulses intact. NEURO: Sensation grossly intact SKIN: Skin color normal PSYCH: The mental examination revealed the patient was alert and oriented x 4 Lab Results 06/05 06:35 WBC: 10.3 Hgb: 10.8 L Hct: 32.6 L Platelet: 252 Neutrophil %: 53.5 Glucose Level: 208 H Sodium Level: 138 Potassium Level: 3.9 BUN: 17 Creatinine Lvl (s): 1.07 H 06/04 23:27 WBC: 10.6 Hgb: 12.3 Hct: 37.3 Platelet: 297 Neutrophil %: 63.4 Glucose Level: 321 H Sodium Level: 137 Potassium Level: 4.1 BUN: 13 Creatinine Lvl (s): 1.04 H Assessment/Plan 1. Frequent UTI 2. Type 2 diabetes mellitus 3. Spina bifida 4. Neurogenic bladder disorder Frequent UTI's- patient has had chronic UTIs. Has history of resistance and unusual bacteria. Patient has allergies to cephalosporins and penicillin. She received a dose of meropenem last night in the emergency department and a dose of meropenem today. Patient reported fevers however since admission temperatures have been between 36.5 to 36.8 C. She has been normotensive. No tachycardia, no tachypnea. Adequate oxygen saturations on room air. Reports abdominal pain but her abdominal exam is benign. White blood cell count is 10,300. Absolute monocyte is 1.2. Remainder of differential is within normal limits. Patient has a suprapubic catheter and urine was positive for nitrates and small amount of leukocyte Estrace with 3+ bacteria. [facility]col[facility]23 showed mixed fred. Patient was given a prescription for Bactrim but she never filled this. I called her pharmacy to verify and there is no evidence of this on an external fill history. Given patient's history of resistance and frequent treatment, I will suspend antibiotic coverage at this time. I am recommending that patient follow-up with infectious disease outpatient. Greater than 50% of today's visit was spent educating patient on in fection prevention as well has glucose control for her diabetes to help in reducing incidence of infection. Type 2 diabetes mellitus- Glucose goal 180 or less and avoid hypoglycemia. Add corrective sliding scale insulin. ADA diet. Neurogenic bladder chronic indwelling suprapubic catheter. History of spina bifida, migraines, insomnia, neurogenic bowel, hyperlipidemia, depression. Mild renal insufficiency- LR@100ml/hr DVT prophylaxis: SCDs Labs, diagnostics, and progress notes reviewed as noted in HPI Code Status: Full code Plan of care discussed with patient. All questions answered. Patient verbalizes understanding is agreeable to plan of care. This dictation was performed using voice recognition software and may include grammatical and/or spelling errors. Problem List/Past Medical History Ongoing Diabetes Neurogenic bladder disorder Spina bifida Type 2 diabetes mellitus Historical No qualifying data Procedure/Surgical History Suprapubic catheter procedure Colostomy Cholecystectomy Umbilical hernia Back Medications Home Medications (9) Active Fiasp FlexTouch 100 units/mL injectable solution 15 unit(s), Subcutaneous, TIDAC Fiasp FlexTouch 100 units/mL injectable solution See Instructions Lantus 30 unit(s), Subcutaneous, qHS Lasix 20 mg oral tablet 40 mg = 2 tab(s), Oral, qAM Lasix 20 mg oral tablet 20 mg = 1 tab(s), Oral, qPM lisinopril 2.5 mg oral tablet 2.5 mg = 1 tab(s), Oral, qDay oxybutynin 15 mg/24 hr oral tablet, extended release 15 mg = 1 tab(s), Oral, qPM phenazopyridine 200 mg oral tablet 200 mg = 1 tab(s), PRN, Oral, TIDPC propranolol 20 mg oral tablet 10 mg = 0.5 tab(s), Oral, BID Allergies Mushrooms (Throat swelling) Peanuts (Throat swelling) Rocephin (Hives) cephalosporins (Anaphylaxis, Hives) gabapentin (psychotic breakdown) Contrast dye (Vomiting) Latex (Hives) penicillin (Unknown) Social History Smoking Status - 02/26/2018 Never smoker Alcohol - Low Risk, 02/26/2018 Frequency: 1-2 times per year., 02/26/2018 Home/Environment Domestic Concerns: None. Living situation: Home/Independent. Safe place to go: Yes. Lives In: 1st floor bathroom. Current Home Treatments Blood Glucose monitoring., 04/24/2022 Nutrition/Health Type of diet: Diabetic. Appetite Good. Eating Difficulties None., 04/24/2022 Sexual Sexually active: Yes. Self described orientation: Straight or heterosexual., 04/24/2022 Substance Abuse - Denies Substance Abuse, 02/11/2017 Use: Never., 04/24/2022 Tobacco Nicotine Use: Never (less than 100 in lifetime)., 04/24/2022 Family History Cancer: Mother.Negative: Father, Sister, Brother, Daughter, Son and Grandparent. Diabetes: Mother. Stroke: Grandparent.Negative: Mother. Immunizations No qualifying data available. Code Status Code Status - Ordered -- 06/05/22 0:19:00 EST, Full Code, Constant Order Digitally Signed by JERAD GONZALEZ on 06/05/2022 10:[address] [facility]12-13-2022 History of Present illness Narrative * Naty Haddad LPN - 05/10/2022 3:55 PM EST CC Supra pubic catheter in Place HPI: Debby Bailon is a 41 year old female. The patient is here now for a supra pubic catheter change with diagnosis neurogenic bladder. Procedure: Performed a catheter change. Removed fluid from balloon in the cook. The indwelling supra pubic cook size 18 Fr was removed with catheter tip intact without difficulty. Inserted 18 Fr catheter using aseptic technique. Irrigated with 60 mL sterile water without difficulties. Approximately 60 mLs clear yellow urine return noted. Bulb inflated with 10 mLs prefilled syringe- sterile water. T-Sponge applied to SPT base per patient preference. The patient tolerated the procedure well. Assessment/Plan: Successful catheter change. Return for catheter changes as planned. [facility]addad LPN [facility] Discharge instructions Patient Education 04/27/2022 15:05:19 Pyelonephritis, Adult, Xczn-xv-Ghzz Pyelonephritis, Adult Pyelonephritis is an infection that occurs in the kidney. The kidneys are organs that help clean the blood by moving waste out of the blood and into the pee (urine). This infection can happen quickly, or it can last for a long time. In most cases, it clears up with treatment and does not cause other problems. What are the causes? This condition may be caused by: Germs (bacteria) going from the bladder up to the kidney. This may happen after having a bladder infection. Germs going from the blood to the kidney. What increases the risk? This condition is more likely to develop in: women. Older people. People who have any of these conditions: ?Diabetes. ?Inflammation of the prostate gland (prostatitis), in males. ?Kidney stones or bladder stones. ?Other problems with the kidney or the parts of your body that carry pee from the kidneys to the bladder (ureters). ?Cancer. People who have a small, thin tube (catheter) placed in the bladder. People who are sexually active. Women who use a medicine that kills sperm (spermicide) to prevent . People who have had a prior urinary tract infection (UTI). What are the signs or symptoms? Symptoms of this condition include: Peeing often. A strong urge to pee right away. Burning or stinging when peeing. Belly pain. Back pain. Pain in the side (flank area). Fever or chills. Blood in the pee, or dark pee. Feeling sick to your stomach (nauseous) or throwing up (vomiting). How is this treated? This condition may be treated by: Taking antibiotic medicines by mouth (orally). Drinking enough fluids. If the infection is bad, you may need to stay in the hospital. You may be given antibiotics and fluids that are put directly into a vein through an IV tube. In some cases, other treatments may be needed. Follow these instructions at home: Medicines Take your antibiotic medicine as told by your doctor. Do not stop taking the antibiotic even if youstart to feel better. Take lvif-dsq-hvktyas and prescription medicines only as told by your doctor. General instructions Drink enough fluid to keep your pee pale yellow. Avoid caffeine, tea, and carbonated drinks. Pee (urinate) often. Avoid holding in pee for long periods of time. Pee before and after sex. After pooping (having a bowel movement), women should wipe from front to back. Use each tissue onlyonce. Keep all follow-up visits as told by your doctor. This is important. Contact a doctor if: You do not feel better after 2 days. Your symptoms get worse. You have a fever. Get help right away if: You cannot take your medicine or drink fluids as told. You have chills and shaking. You throw up. You have very bad pain in your side or back. You feel very weak or you pass out (faint). Summary Pyelonephritis is an infection that occurs in the kidney. In most cases, this infection clears up with treatment and does not cause other problems. Take your antibiotic medicine as told by your doctor. Do not stop taking the antibiotic even if youstart to feel better. Drink enough fluid to keep your pee pale yellow. This information is not intended to replace advice given to you by your health care provider. Make sure you discuss any questions you have with your health care provider. Document Released: 06/22/2005 Document Revised: 03/19/2019 Document Reviewed: 03/19/2019 [employer] Patient Education 2020 H.BLOOM. Follow Up Care 04/23/2022 23:58:47 With:WILL BRANNON MD Address: [address] [place] [address]- When:3-7 days Comments:Please call your doctor to schedule your post-hospital follow-up appointment. [facility] 11-30-2022 Note Discharge Instructions Thank you for allowing [facility] to assist you with your healthcare needs. The following is importantdischarge information regarding your hospital visit. Your Care Team [facility] Your Diagnosis Pyelonephritis, acute Type 2 diabetes mellitus Neurogenic bladder disorder Fever What to do next Instructions From Your Doctor You were admitted for pyelonephritis. You received IV antibiotics. You are being discharged with a prescription for Bactrim DS to be taken twice daily for 10 days. Please take every dose. Follow Up Appointments Follow Up with WILL BRANNON MD When Within 3-7 days Why: Please call your doctor to schedule your post-hospital follow-up appointment. Where: [address] [place] [address]- The Following Activity and Diet Have Been Ordered for You Discharge Activity - Ordered -- Resume your pre-hospitalization activity, 04/27/22 14:05:00 EST Discharge Diet - Ordered -- No changes were made to your diet during your hospital stay. Please resume your pre hospitalization diet on discharge., 04/27/22 14:05:00 EST Allergies Mushrooms (Throat swelling) Peanuts (Throat swelling) Rocephin (Hives) cephalosporins (Anaphylaxis, Hives) gabapentin (psychotic breakdown) Contrast dye (Vomiting) Latex (Hives) penicillin (Unknown) Medications Please ask your primary doctor or pharmacist before taking any other medication not listed, including over the counter drugs, herbal medications, vitamins and or supplements as they may interact withyour home medications. What How Much When Instructions Last Dose New sulfamethoxazole-trimethoprim (Bactrim DS 800 mg-160 mg oral tablet) 369.6 Milligram by mouth Every 12 hours Duration: 10 Days Dosage expressed as trimethoprim Pickup at [employer] [address] NOT GIVEN-YOU RECEIVED IV ANTIOBIOTICS/ PLEASE TAKE FIRST DOSE THIS EVENING Changed furosemide (Lasix 20 mg oral tablet) 2 tab(s) by mouth Once a day (in the morning) NOT GIVEN Changed insulin aspart (Novolog) (Fiasp FlexTouch 100 units/ mL injectable solution) 15 unit(s) Subcutaneous Three (3) times a day before meals NOT GIVEN Changed insulin aspart (Novolog) (Fiasp FlexTouch 100 units/ mL injectable solution) See instructions Sliding scale TIDAC 04/25/22 @444PM Changed phenazopyridine (phenazopyridine 200 mg oral tablet) 1 tab(s) by mouth Three (3) times a day after meals as needed for as needed for urinary discomfort NOT GIVEN Changed propranolol (propranolol 20 mg oral tablet) 0.5 tab(s) by mouth Two (2) times a day NOT GIVEN Unchanged insulin glargine (Lantus) 30 unit(s) Subcutaneous Daily at bedtime NOT GIVEN Unchanged lisinopril (lisinopril 2.5 mg oral tablet) 1 tab(s) by mouth Once a day NOT GIVEN Unchanged oxybutynin (oxybutynin 15 mg/ 24 hr oral tablet, extended release) 1 tab(s) by mouth Once a day (in the evening) NOT GIVEN Pharmacy Information [employer] [facility] [employer] [facility]: [address] [place], [place] [id number] [phone] Please take this list to your next doctor s visit. Bring all medications you take, including over the counter medications, herbals and other supplements with you to your doctor s visit. Patients and families are reminded to discard old lists and to update any records with all medication providers or retail pharmacies. Education Materials Pyelonephritis, Adult Pyelonephritis is an infection that occurs in the kidney. The kidneys are organs that help clean the blood by moving waste out of the blood and into the pee (urine). This infection can happen quickly, or it can last for a long time. In most cases, it clears up with treatment and does not cause other problems. What are the causes? This condition may be caused by: Germs (bacteria) going from the bladder up to the kidney. This may happen after having a bladder infection. Germs going from the blood to the kidney. What increases the risk? This condition is more likely to develop in: women. Older people. People who have any of these conditions: ? Diabetes. ? Inflammation of the prostate gland (prostatitis), in males. ? Kidney stones or bladder stones. ? Other problems with the kidney or the parts of your body that carry pee from the kidneys to the bladder (ureters). ? Cancer. People who have a small, thin tube (catheter) placed in the bladder. People who are sexually active. Women who use a medicine that kills sperm (spermicide) to prevent . People who have had a prior urinary tract infection (UTI). What are the signs or symptoms? Symptoms of this condition include: Peeing often. A strong urge to pee right away. Burning or stinging when peeing. Belly pain. Back pain. Pain in the side (flank area). Fever or chills. Blood in the pee, or dark pee. Feeling sick to your stomach (nauseous) or throwing up (vomiting). How is this treated? This condition may be treated by: Taking antibiotic medicines by mouth (orally). Drinking enough fluids. If the infection is bad, you may need to stay in the hospital. You may be given antibiotics and fluids that are put directly into a vein through an IV tube. In some cases, other treatments may be needed. Follow these instructions at home: Medicines Take your antibiotic medicine as told by your doctor. Do not stop taking the antibiotic even if youstart to feel better. Take nwxk-vun-eljlyal and prescription medicines only as told by your doctor. General instructions Drink enough fluid to keep your pee pale yellow. Avoid caffeine, tea, and carbonated drinks. Pee (urinate) often. Avoid holding in pee for long periods of time. Pee before and after sex. After pooping (having a bowel movement), women should wipe from front to back. Use each tissue onlyonce. Keep all follow-up visits as told by your doctor. This is important. Contact a doctor if: You do not feel better after 2 days. Your symptoms get worse. You have a fever. Get help right away if: You cannot take your medicine or drink fluids as told. You have chills and shaking. You throw up. You have very bad pain in your side or back. You feel very weak or you pass out (faint). Summary Pyelonephritis is an infection that occurs in the kidney. In most cases, this infection clears up with treatment and does not cause other problems. Take your antibiotic medicine as told by your doctor. Do not stop taking the antibiotic even if youstart to feel better. Drink enough fluid to keep your pee pale yellow. This information is not intended to replace advice given to you by your health care provider. Make sure you discuss any questions you have with your health care provider. Document Released: 06/22/2005 Document Revised: 03/19/2019 Document Reviewed: 03/19/2019 [employer] Patient Education 2020 [employer] Additional Information VACCINATE! IT SAVES LIVES! Members of the community who have not yet received the COVID-19 vaccine and would like to receive it can visit one of [facility] vaccine clinics. There are many vaccine clinic locations within the [facility]. For locations and available times, please visit [email or web address] It is important to note that some COVID mobile vaccine clinics are held outdoors and may be canceled in rainy or stormy conditions. To learn more about pediatric vaccinations (ages 5-11), we invite you to visit the [facility] webpage. [email or web address] learn more about the COVID-19 vaccine, we invite you to visit the [facility] website for a list of frequently asked questions. [email or web address] [facility] Patient Portal Access Instructions: Stay connected with your healthcare team and access your personal medical information anytime with the [email or web address] Patient Portal.If you would like a full copy of your medical records, please contact the [facility] Medical Records Department, Monday through Monday between 8a.m. and 4:30p.m. Please follow the directions below to access the portal: 1.Access the email account you provided upon registration to the [facility].2.Look for an invitation email from [facility].3.Open the email and access the invitation link: Accept Invitation to [facility].Fill in the required hartley to create your account. Sign into www.[employer] with your username and password that you created in the above steps to stay up to date. You can then view a summary of results, a summary of your visits, and the ability to download your summaries to your computer or send the information securely to a physician. Remember that your healthcare information is confidential, so carefully consider who you will allow to register on the [email or web address] Patient Portal for access to your information. You can also access the [email or web address] Patient Portal on the [employer] robert. Simply click on Health Records under HealthData and then click on the [employer] logo. HOW TO SAFELY DISPOSE OF PRESCRIPTION MEDICATIONS Please use one of the following methods to safely dispose of your unused medications. 1.Use a drug disposal kit: the drug disposal pouch allows you to safely discard your old and unuseddrugs. Ask your nurse to give you one when you are discharged.2.Visit a local take-back location: Many local pharmacies and police departments have programs that collect old and unwanted prescriptiondrugs. Call your local pharmacy or go to http://i[email or web address]/2I9Fh5t to find one close to you.3.Make use of household items: Use cat litter or old coffee grounds to dispose medications if other options arenot available. Mix your drugs with these household products, seal them in an airtight container andthrow it into the garbage. Call [facility]: [phone] to be sure your drugs can be disposed of in this way. Some medicines may require a different approach.4.Never flush your medications down the toilet. IF YOU HAVE BEEN PRESCRIBED AN OPIOID FOR PAIN If you have been prescribed an opioid (such as hydrocodone, oxycodone or morphine), it is critical to understand the possible side effects and risks of opioid pain medications. Even when taken as directed, opioids can have several side effects including: Tolerance, meaning you might need to take more of a medication for the same pain relief. Nausea, vomiting and/or constipation. Sleepiness, dizziness, dry mouth, confusion, depression or itching. Physical dependence, meaning you have withdrawal symptoms when a medication is stopped, can develop within a few days. KNOW YOUR RESPONSIBILITIES It is important to know exactly how much and how often to take the opioid pain medications you are prescribed. Never take opioids in higher amounts or more often than prescribed. Do not combine opioids with alcohol or other drugs that cause drowsiness, such as benzodiazepines, also known as benzos, including diazepam and alprazolam, muscle relaxants or sleep aids. Never sell or share prescription opioids. This is illegal. Store opioids in a secure place and out of reach of others (including children, family, friends and visitors). The last page of this document has been signed and retained as a CHART COPY. Signatures Patient Education Materials Kathie, Adult, Jvya-xd-Bpwi Medication Leaflets My discharge plan and instructions have been reviewed and explained to me and UVALDO To ANGELA Lunderstand my current condition and have read and understand these discharge instructions. I have received a written copy of the plan/instructions. If I have questions, I am aware that I should contact my doctor. 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 She has hemodynamically stable with adequate oxygen saturations on room air. Patient continues to have back pain. Culture results are still pending for urine. Blood cultures show NGTD. On exam today patient denies any fever or chills. Admits headache, weakness. No chest pain or palpitations. Nausea has resolved. Colostomy is draining adequately. Suprapubic catheter is draining. Admits continued flank pain. Objective Vitals and Measurements T: 36.6 C (Oral) TMIN: 36.6 C (Oral) TMAX: 36.8 C (Oral) HR: 63(Apical) RR: 18 BP: 110/71 SpO2: 95%WT: 92.9 kg Intake and Output 7AM Yesterday to 7AM Today Intake and Output (Last 24 hours) Intake Administration Information 1600.00 Output Urinary Catheter Output: 1550.00 Total Summary Total Intake 1600.00 Total Output 1550.00 Fluid Balance 50.00 Physical Exam GEN: Appears chronically ill CHEST: Normal S1 and S2. Rhythm is regular. Clear to auscultation, without rales, rhonchi, wheezing. ABD: Positive bowel sounds x 4 quads. Soft, nondistended, nontender. CVA tenderness. Colostomy present. Suprapubic catheter present. EXT: No significant deformity or joint abnormality. No edema. Peripheral pulses intact. NEURO: Sensation grossly intact SKIN: Skin color normal PSYCH: The mental examination revealed the patient was alert and oriented x 4 Weight Current Weight Dosing Weight: 92.4 kg (04/24/22) Current Weight: 92.9 kg (04/26/22) Dosing Weight: 92.4 kg (04/24/22) Current Weight: 93.2 kg (04/25/22) Medications Medications (13) Active Scheduled: (2) insulin lispro 100 units/mL Soln (3 mL) Give 0-5 units/dose, Subcutaneous, TIDAC meropenem 1,000 mg, IV Piggyback, q8h Continuous: (1) NS (0.9% nacl) 1,000 mL 1,000 mL, Intravenous, 100 mL/hr PRN: (10) acetaminophen 325 mg Tablet 650 mg 2 tab(s), Oral, q6h acetaminophen 325 mg Tablet 650 mg 2 tab(s), Oral, q4h acetaminophen 650 mg Suppository 650 mg 1 supp, Rectal, q4h acetaminophen-HYDROcodone 325-5 mg tablet 2 tab(s), Oral, q4h albuterol - ipratropium 2.5 mg-0.5 mg/3 mL Inhal Michelle UD 3 mL, Inhalation, q2hRT dextrose 50% Solution Disp syringe 50 mL 12.5 gram(s) 25 mL, IV Push, AsDirected hydromorphone 1 mg/mL (1mL) INJ 0.5 mg 0.5 mL, IV Push, q3h melatonin 3 mg tablet 3 mg 1 tab(s), Oral, qHS ondansetron 2 mg/ 1 mL 2 mL INJ 4 mg 2 mL, IV Push, q4h polyethylene glycol 3350 - UD packet 17 gram(s) 15 mL, Oral, BID Lab Results 04/26 05:46 WBC: 8.4 Hgb: 11.3 L Hct: 33.5 L Platelet: 192 Neutrophil %: 44.2 Glucose Level: 130 H Sodium Level: 140 Potassium Level: 3.8 BUN: 9 Creatinine Lvl (s): 0.86 04/25 05:22 WBC: 6.1 Hgb: 10.9 L Hct: 32.8 L Platelet: 183 Neutrophil %: 53.4 Glucose Level: 136 H Sodium Level: 140 Potassium Level: 3.8 BUN: 10 Creatinine Lvl (s): 0.89 Assessment/Plan 1. Pyelonephritis, acute 2. Type 2 diabetes mellitus 3. Neurogenic bladder disorder Orders: Urine Culture Pyelonephritis patient has had chronic UTIs. Has history of resistance and unusual bacteria. Patient has allergies to cephalosporins and penicillin. Continue meropenem and IV fluids. Blood cultures show NGTD. Urine culture positive for Providencia stuartii, Morganella morganii, Alcaligenes faecalis. Group B strep. Type 2 diabetes mellitus- Glucose goal 180 or less and avoid hypoglycemia. Hold oral agents. Continue corrective sliding scale insulin. ADA diet. Neurogenic bladder chronic indwelling Cook catheter. History of spina bifida, migraines, insomnia, neurogenic bowel, hyperlipidemia, depression. DVT prophylaxis: SCDs Labs, diagnostics, and progress notes reviewed as noted in HPI Code Status: Full code Plan of care discussed with patient. All questions answered. Patient verbalizes understanding is agreeable to plan of care. This dictation was performed using voice recognition software and may include grammatical and/or spelling errors. Digitally Signed by JERAD GONZALEZ on 04/26/2022 12:[address] [facility]11-28-2022 Note Date of Service 04/25/2022 Subjective Patient did have fevers last night. Blood pressure has improved today compared to yesterday. Maintains adequate oxygenation on room air. She does continue to have CVA tenderness. No leukocytosis. White blood cell count 6000. H&H stable. Blood sugar 136. BMP otherwise unremarkable. On exam today patient denies any fever or chills. Admits headache, weakness. No chest pain or palpitations. She nausea but no vomiting. Colostomy is draining adequately. Suprapubic catheter is draining. Admits flank pain. Objective Vitals and Measurements T: 36.8 C (Oral) TMIN: 36.5 C (Oral) TMAX: 39 C (Oral) HR: 67(Monitored) RR: 18 BP: 113/75 SpO2: 99% WT: 93.2 kg Intake and Output 7AM Yesterday to 7AM Today Intake and Output (Last 24 hours) Intake Administration Information 1600.00 Oral Intake 100.00 Output Urine Voided 550.00 Urinary Catheter Output: 1450.00 Emesis Count 1.00 Total Summary Total Intake 1700.00 Total Output 2000.00 Fluid Balance -300.00 Physical Exam GEN: Appears chronically ill CHEST: Normal S1 and S2. Rhythm is regular. Clear to auscultation, without rales, rhonchi, wheezing. ABD: Positive bowel sounds x 4 quads. Soft, nondistended, nontender. CVA tenderness. Colostomy present. Suprapubic catheter present. EXT: No significant deformity or joint abnormality. No edema. Peripheral pulses intact. NEURO: Sensation grossly intact SKIN: Skin color normal PSYCH: The mental examination revealed the patient was alert and oriented x 4 Weight Current Weight Dosing Weight: 92.4 kg (04/24/22) Current Weight: 93.2 kg (04/25/22) Dosing Weight: 92.4 kg (04/24/22) Medications Medications (13) Active Scheduled: (2) insulin lispro 100 units/mL Soln (3 mL) Give 0-5 units/dose, Subcutaneous, TIDAC meropenem 1,000 mg, IV Piggyback, q8h Continuous: (1) NS (0.9% nacl) 1,000 mL 1,000 mL, Intravenous, 100 mL/hr PRN: (10) acetaminophen 325 mg Tablet 650 mg 2 tab(s), Oral, q6h acetaminophen 325 mg Tablet 650 mg 2 tab(s), Oral, q4h acetaminophen 650 mg Suppository 650 mg 1 supp, Rectal, q4h acetaminophen-HYDROcodone 325-5 mg tablet 2 tab(s), Oral, q4h albuterol - ipratropium 2.5 mg-0.5 mg/3 mL Inhal Michelle UD 3 mL, Inhalation, q2hRT dextrose 50% Solution Disp syringe 50 mL 12.5 gram(s) 25 mL, IV Push, AsDirected hydromorphone 1 mg/mL (1mL) INJ 0.5 mg 0.5 mL, IV Push, q3h melatonin 3 mg tablet 3 mg 1 tab(s), Oral, qHS ondansetron 2 mg/ 1 mL 2 mL INJ 4 mg 2 mL, IV Push, q4h polyethylene glycol 3350 - UD packet 17 gram(s) 15 mL, Oral, BID Lab Results 04/25 05:22 WBC: 6.1 Hgb: 10.9 L Hct: 32.8 L Platelet: 183 Neutrophil %: 53.4 Glucose Level: 136 H Sodium Level: 140 Potassium Level: 3.8 BUN: 10 Creatinine Lvl (s): 0.89 04/24 06:11 WBC: 7.5 Hgb: 10.9 L Hct: 32.7 L Platelet: 198 Neutrophil %: 67.2 Glucose Level: 135 H Sodium Level: 135 L Potassium Level: 3.4 L BUN: 10 Creatinine Lvl (s): 0.85 Assessment/Plan 1. Pyelonephritis, acute 2. Type 2 diabetes mellitus 3. Neurogenic bladder disorder Pyelonephritis patient has had chronic UTIs. Has history of resistance and unusual bacteria. Patient has allergies to cephalosporins and penicillin. Spoke with microbiology department who states thatthere are 3 different types of gram- negative rods growing. Will await official report. Given patient's history of resistance and allergies, will continue her on meropenem until a sensitivity report is available. Continue IV fluids. Patient last had a fever at 2300 last night of 38.1. Urine remains very cloudy. Type 2 diabetes mellitus- Glucose goal 180 or less and avoid hypoglycemia. Hold oral agents. Add corrective sliding scale insulin. ADA diet. Neurogenic bladder chronic indwelling Cook catheter. History of spina bifida, migraines, insomnia, neurogenic bowel, hyperlipidemia, depression. DVT prophylaxis: SCDs Labs, diagnostics, and progress notes reviewed as noted in HPI Code Status: Full code Plan of care discussed with patient. All questions answered. Patient verbalizes understanding is agreeable to plan of care. This dictation was performed using voice recognition software and may include grammatical and/or spelling errors. Digitally Signed by JERAD GONZALEZ on 04/25/2022 03:[address] [facility]11-27-2022 Note Date of Service 04/24/2022 Chief Complaint Pt c/o vomiting, 102 degree temp, odor in foot and urine bag, weakness, vomiting. History of Present Illness 41-year-old female with past medical history significant for neurogenic bladder, type 2 diabetes mellitus, spina bifida, migraines, insomnia, depression, hyperlipidemia frequent UTIs, neurogenic bowel with colostomy bag. Patient [facility] to [facility] emergency department 04/24/2022 with a 3- day history of fever, weakness, vomiting and a foul odor from foot wound. Patient has a history of becoming septic. She was concerned about this. In the emergency department patient was febrile at 37.9, hemodynamically stable with adequate oxygen saturations on room air. No leukocytosis. Urinalysis positive for nitrates and moderate amount of leukocyte esterase. 4+ bacteria renal function stable. Patient was initiated on meropenem in the emergency department for pyelonephritis. Patient has multiple allergies. Patient's last urine culture from 02/15/2022 was positive for Providencia rettgeri. Decision was made to admit patient for observation. On exam today patient denies any fever or chills. Admits headache, weakness. No chest pain or palpitations. She nausea but no vomiting. Colostomy is draining adequately. Suprapubic catheter is draining. Admits flank pain. Review of Systems See HPI for specific ROS. All other systems reviewed and negative. Physical Exam Vitals and Measurements T: 38.8 C (Oral) TMIN: 36.6 C (Oral) TMAX: 38.8 C (Oral) HR: 83(Monitored) RR: 18 BP: 94/55 SpO2: 96% HT: 154.94 cm WT: 92.4 kg BMI: 38.49 Weight Dosing Weight: 92.4 kg (04/24/22) Dosing Weight: 92.4 kg (04/24/22) GEN: Appears chronically ill EYES: No conjunctival erythema, drainage. EOMI EARS: Hearing grossly intact. NOSE: No nasal discharge. THROAT: Oral cavity and pharynx pink and moist. CHEST: Normal S1 and S2. Rhythm is regular. Clear to auscultation, without rales, rhonchi, wheezing. ABD: Positive bowel sounds x 4 quads. Soft, nondistended, nontender. CVA tenderness. Colostomy present. Suprapubic catheter present. EXT: No significant deformity or joint abnormality. No edema. Peripheral pulses intact. NEURO: Sensation grossly intact SKIN: Skin color normal PSYCH: The mental examination revealed the patient was alert and oriented x 4 Lab Results 04/24 06:11 WBC: 7.5 Hgb: 10.9 L Hct: 32.7 L Platelet: 198 Neutrophil %: 67.2 Glucose Level: 135 H Sodium Level: 135 L Potassium Level: 3.4 L BUN: 10 Creatinine Lvl (s): 0.85 04/24 00:31 WBC: 10.8 Hgb: 12.3 Hct: 36.3 L Platelet: 228 Neutrophil %: 79.3 Glucose Level: 166 H Sodium Level: 135 L Potassium Level: 4.0 BUN: 9 Creatinine Lvl (s): 0.85 Assessment/Plan 1. Pyelonephritis, acute 2. Type 2 diabetes mellitus 3. Neurogenic bladder disorder Orders: acetaminophen-hydrocodone, Start: 04/24/22 13:28:00 EST, Dose = 2 tab(s), Tab, Oral, q4h, PRN, Pain, scale 4-6, 0 HYDROmorphone, Start: 04/24/22 11:58:00 EST, Dose = 0.5 mg, = 0.5 mL, IV Push, q3h, PRN, Pain, scale 7-10, 0, 04/24/22 11:58:00 EST Pyelonephritis patient has had chronic UTIs. Has history of resistance and unusual bacteria. Patient has allergies to cephalosporins and penicillin. Start meropenem 1 g every 8 hours. Afebrile and noleukocytosis. Patient does have CVA tenderness. Normal saline at 100 mL/h. Type 2 diabetes mellitus- Glucose goal 180 or less and avoid hypoglycemia. Hold oral agents. Add corrective sliding scale insulin. ADA diet. Neurogenic bladder chronic indwelling Cook catheter. History of spina bifida, migraines, insomnia, neurogenic bowel, hyperlipidemia, depression. DVT prophylaxis: SCDs Labs, diagnostics, and progress notes reviewed as noted in HPI Code Status: Full code Plan of care discussed with patient. All questions answered. Patient verbalizes understanding is agreeable to plan of care. This dictation was performed using voice recognition software and may include grammatical and/or spelling errors. Problem List/Past Medical History Ongoing Diabetes Neurogenic bladder disorder Spina bifida Type 2 diabetes mellitus Historical No qualifying data Procedure/Surgical History Suprapubic catheter procedure Colostomy Umbilical hernia Back Medications Home Medications (8) Active busPIRone 15 mg oral tablet 15 mg = 1 tab(s), Oral, TID dicyclomine 20 mg oral tablet 20 mg = 1 tab(s), PRN, Oral, QID Fiasp FlexTouch 100 units/mL injectable solution See Instructions Lantus 30 unit(s), Subcutaneous, qHS lisinopril 2.5 mg oral tablet 2.5 mg = 1 tab(s), Oral, qDay phenazopyridine 200 mg oral tablet propranolol 10 mg oral tablet 10 mg = 1 tab(s), Oral, BID Zofran ODT 4 mg oral tablet, disintegrating 4 mg = 1 tab(s), Oral, TID Allergies Mushrooms Peanuts Rocephin cephalosporins gabapentin Contrast dye Latex penicillin Social History Smoking Status - 02/26/2018 Never smoker Alcohol - Low Risk, 02/26/2018 Frequency: 1-2 times per year., 02/26/2018 Home/Environment Domestic Concerns: None. Living situation: Home/Independent. Safe place to go: Yes. Lives In: 1st floor bathroom. Current Home Treatments Blood Glucose monitoring., 04/24/2022 Nutrition/Health Type of diet: Diabetic. Appetite Good. Eating Difficulties None., 04/24/2022 Sexual Sexually active: Yes. Self described orientation: Straight or heterosexual., 04/24/2022 Substance Abuse - Denies Substance Abuse, 02/11/2017 Use: Never., 04/24/2022 Tobacco Nicotine Use: Never (less than 100 in lifetime)., 04/24/2022 Family History Cancer: Mother. Diabetes: Mother. Immunizations No qualifying data available. Code Status Code Status - Ordered -- 04/24/22 3:24:00 EST, Full Code, Constant Order Digitally Signed by JERAD GONZALEZ on 04/24/2022 04:[address] [facility]11-27-2022 Evaluation + Plan noteExtracted from: Title:History and Physical Author:JERAD GONZALEZ Date:04/24/22 1. Pyelonephritis, acute 2. Type 2 diabetes mellitus 3. Neurogenic bladder disorder Orders: acetaminophen-hydrocodone, Start: 04/24/22 13:28:00 EST, Dose = 2 tab(s), Tab, Oral, q4h, PRN, Pain, scale 4-6, 0 HYDROmorphone, Start: 04/24/22 11:58:00 EST, Dose = 0.5 mg, = 0.5 mL, IV Push, q3h, PRN, Pain, scale 7-10, 0, 04/24/22 11:58:00 EST Pyelonephritis patient has had chronic UTIs. Has history of resistance and unusual bacteria. Patient has allergies to cephalosporins and penicillin. Start meropenem 1 g every 8 hours. Afebrile and no leukocytosis. Patient does have CVA tenderness. Normal saline at 100 mL/h. Type 2 diabetes mellitus- Glucose goal 180 or less and avoid hypoglycemia. Hold oral agents. Add corrective sliding scale insulin. ADA diet. Neurogenic bladder chronic indwelling Cook catheter. History of spina bifida, migraines, insomnia, neurogenic bowel, hyperlipidemia, depression. DVT prophylaxis: SCDs Labs, diagnostics, and progress notes reviewed as noted in HPI Code Status: Full code Plan of care discussed with patient. All questions answered. Patient verbalizes understanding is agreeable to plan of care. This dictation was performed using voice recognition software and may include grammatical and/or spelling errors. [facility] Jennifer 10-25-2022 Hospital Discharge instructions Patient Education 03/22/2022 19:27:40 Cervical Adenitis, Antiobiotic Treatment Local Lymph Node Infection, Antibiotic Treatment You have a bacterial infection of a lymph node. The lymph nodes are part of your immune system. They are found under the jaw and along the side of the neck, in the armpits and groin, and some other parts of the body. An infection or inflammation in nearby tissues causes the lymph nodes to swell andbecome tender. When a bacterial infection occurs in the lymph node, it becomes very painful. The nearby skin gets red and warm. You may also have a fever. Antibiotics and hot compresses are used to treat this infection. The pain and redness will get better over the next 7 to 10 days. Swelling may take several months to completely go away. Sometimes an abscess (with pus) forms inside the lymph node. If this happens, antibiotics may not be enough to cure the infection. Your health care provider may suggest draining it with a needle or that minor surgery is needed to better drain the pus. You may need blood tests or a study of the pus inside the abscess to guide your treatment. Home care Follow these guidelines when caring for yourself at home: Take all of the antibiotic medicine exactly as prescribed until it is gone. Be careful not to miss any doses, especially during the first few days. Make a hot compress by running hot water over a face cloth. Apply it to the sore area until the cloth cools off. Repeat this for 20 minutes. Use the hot compress 3 times a day for the first 3 days, or until the pain and redness begin to get better. The heat will increase the blood flow to the area and speed the healing process. Be sure that the compress is not so hot that it will burn your skin. You may use acetaminophen or ibuprofen to control pain and fever, unless another medicine was prescribed for this. Don t use ibuprofen in children under 6 months of age. If you have chronic liver or kidney disease, talk with your healthcare provider before using these medicines. Also talk with yourprovider if you ve had a stomach ulcer or gastrointestinal bleeding. Don t give aspirin to anyone under 18 years of age who is ill with a fever. It may cause severe liver damage. Follow-up care Follow up with your healthcare provider, or as advised, after you finish the antibiotics. When to seek medical advice Call your healthcare provider right away if any of these occur: Redness, swelling or pain in the lymph node gets worse The lymph node gets bigger, becomes soft in the middle, or doesn t seem to be getting better after you ve taken the antibiotics for 2 days (48 hours) Pus or fluid drains from the lymph node You have trouble breathing or swallowing Also call your provider right away if you have a fever, or your child s provider if your child has a fever (see Fever and children, below) Fever and children Always use a digital thermometer to check your child s temperature. Never use a mercury thermometer. For infants and toddlers, be sure to use a rectal thermometer correctly. A rectal thermometer may accidentally poke a hole in (perforate) the rectum. It may also pass on germs from the stool. Always follow the product maker s directions for proper use. If you don t feel comfortable taking a rectal t emperature, use another method. When you talk to your child s healthcare provider, tell him or her which method you used to take your child s temperature. Here are guidelines for fever temperature. Ear temperatures aren t accurate before 6 months of age.Don t take an oral temperature until your child is at least 4 years old. Infant under 3 months old: Ask your child s healthcare provider how you should take the temperature. Rectal or forehead (temporal artery) temperature of 100.4 F (38 C) or higher, or as directed by theprovider Armpit temperature of 99 F (37.2 C) or higher, or as directed by the provider Child age 3 to 36 months: Rectal, forehead (temporal artery), or ear temperature of 102 F (38.9 C) or higher, or as directed by the provider Armpit temperature of 101 F (38.3 C) or higher, or as directed by the provider Child of any age: Repeated temperature of 104 F (40 C) or higher, or as directed by the provider Fever that lasts more than 24 hours in a child under 2 years old. Or a fever that lasts for 3 days in a child 2 years or older. [id number] [employer]. [address] [place] [address], [place] [address]. All rights reserved. This information is not intended as a substitute for professional medical care. Always follow yourhealthcare professional's instructions. Follow Up Care 03/22/2022 17:10:04 With:WILL BRANNON MD Address: [address], [place] [id number]- When:2-[address] [facility] 10-25-2022 Note Discharge Instructions Thank you for allowing [facility] to assist you with your healthcare needs. The following is importantdischarge information regarding your hospital visit. Diagnosis from Today's Visit Facial pain Facial swelling What to Do Next Instructions from Your Care Team Take antibiotics as prescribed. Follow close with your doctor, return if worsening pain fever swelling difficulty swallowing or other concerning symptoms. No qualifying data available. Post Acute Orders No qualifying data available. You Need to Schedule the Following Appointments Follow Up with WILL BRANNON MD When Within 2-4 days Where: [address], [place] [address]- Allergies Contrast dye Latex Mushrooms Peanuts Rocephin penicillin Medications Please ask your primary doctor or pharmacist before taking any other medication not listed, including over the counter drugs, herbal medications, vitamins and or supplements as they may interact withyour home medications. What How Much When Instructions Last Dose New clindamycin (clindamycin 150 mg oral capsule) 3 cap by mouth Every 8 hours Duration: 10 Days Printed Prescription Unchanged busPIRone (busPIRone 15 mg oral tablet) 1 tab(s) by mouth Three (3) times a day Unchanged dicyclomine (dicyclomine 20 mg oral tablet) 1 tab(s) by mouth Four (4) times a day as needed for abdominal discomfort Duration: 7 Days Unchanged DULoxetine (Cymbalta 20 mg oral delayed release capsule) 1 cap by mouth Once a day Unchanged gabapentin (gabapentin 300 mg oral capsule) 1 cap by mouth Three (3) times a day Unchanged liraglutide (Victoza 18 mg/ 3 mL subcutaneous Pen) Unchanged lisinopril (lisinopril 2.5 mg oral tablet) 1 tab(s) by mouth Once a day Unchanged metFORMIN (metFORMIN 500 mg oral tablet) 1 tab(s) by mouth Two (2) times a day Unchanged naproxen (naproxen 500 mg oral tablet) Take 1 tablet by mouth every 12 hours as needed (pain/ inflammation, take with food.). Unchanged ondansetron (Zofran ODT 4 mg oral tablet, disintegrating) 1 tab(s) by mouth Three (3) times a day Duration: 3 Days Unchanged phenazopyridine (phenazopyridine 200 mg oral tablet) TAKE 1 TABLET EVERY 8 HOURS NEEDED FOR BLADDER spasms Unchanged propranolol (propranolol 10 mg oral tablet) 1 tab(s) by mouth Two (2) times a day Unchanged sulfamethoxazole-trimethoprim (sulfamethoxazole-trimethoprim 800 mg- 160 mg oral tablet) TAKE 1 TABLET BY MOUTH TWICE DAILY UNTIL GONE. Please take this list to your next doctor s visit. Bring all medications you take, including over the counter medications, herbals and other supplements with you to your doctor s visit. Patients and families are reminded to discard old lists and to update any records with all medication providers or retail pharmacies. Medication Leaflets clindamycin (oral/injection) (doris Mixon sin) Cleocin HCl, Cleocin Pediatric, Cleocin Phosphate What is the most important information I should know about clindamycin? Clindamycin can cause diarrhea, which may be severe or lead to serious, life- threatening intestinalproblems. If you have diarrhea that is watery or bloody, stop using clindamycin and call your doctor. What is clindamycin? Clindamycin is an antibiotic that is used to treat serious infections caused by bacteria. Clindamycin may also be used for purposes not listed in this medication guide. What should I discuss with my healthcare provider before using clindamycin? You should not use this medicine if you are allergic to clindamycin or lincomycin. Tell your doctor if you have ever had: colitis, Crohn's disease, or other intestinal disorder; eczema, or allergic skin reaction; asthma or a severe allergic reaction to aspirin; liver disease; or an allergy to yellow food dye. It is not known whether this medicine will harm an unborn baby. Tell your doctor if you are or plan to become . Clindamycin can pass into breast milk and may cause side effects in the nursing baby. If you are while taking this medicine, call your doctor if your baby has diaper rash, redness or white patches in the mouth or throat, stomach discomfort, or diarrhea that is watery or bloody. Clindamycin injection may contain an ingredient that can cause serious side effects or in very young or premature babies. Do not give this medicine to a child without medical advice. How should I use clindamycin? Follow all directions on your prescription label and read all medication guides or instruction sheets. Use the medicine exactly as directed. Clindamycin oral is taken by mouth. Clindamycin injection is injected into a muscle, or as an infusion into a vein. A healthcare provider will give your first dose and may teach you how to properly use the medication by yourself. Take the capsule with a full glass of water to keep it from irritating your throat. Measure liquid medicine carefully. Use the dosing syringe provided, or use a medicine dose-measuring device (not a kitchen spoon). You may need frequent medical tests during treatment. If you need surgery, tell your surgeon you currently use clindamycin. Use this medicine for the full prescribed length of time, even if your symptoms quickly improve. Skipping doses can increase your risk of infection that is resistant to medication. Clindamycin will not treat a viral infection such as the flu or a common cold. Store at room temperature away from moisture and heat. Protect the injectable medicine from high heat. Do not store the oral liquid in the refrigerator. Throw away any unused oral liquid after 2 weeks. Use a needle and syringe only once and then place them in a puncture-proof 'sharps' container. Follow state or local laws about how to dispose of this container. Keep it out of the reach of children and pets. What happens if I miss a dose? Use the medicine as soon as you can, but skip the missed dose if it is almost time for your next dose. Do not use two doses at one time. What happens if I overdose? Seek emergency medical attention or call the Poison Help line at . What should I avoid while using clindamycin? Antibiotic medicines can cause diarrhea, which may be a sign of a new infection. If you have diarrhea that is watery or bloody, call your doctor. Do not use anti-diarrhea medicine unless your doctor tells you to. What are the possible side effects of clindamycin? Get emergency medical help if you have signs of an allergic reaction (hives, difficult breathing, swelling in your face or throat) or a severe skin reaction (fever, sore throat, burning in your eyes,skin pain, red or purple skin rash that spreads and causes blistering and peeling). Seek medical treatment if you have a serious drug reaction that can affect many parts of your body.Symptoms may include: skin rash, fever, swollen glands, flu- like symptoms, muscle aches, severe weakness, unusual bruising, or yellowing of your skin or eyes. Call your doctor at once if you have: any change in bowel habits; severe stomach pain, diarrhea that is watery or bloody; little or no urination; or a metallic taste in your mouth (after clindamycin injection). Common side effects may include: nausea, vomiting, stomach pain; mild skin rash; or vaginal itching or discharge; This is not a complete list of side effects and others may occur. Call your doctor for medical advice about side effects. You may report side effects to FDA at 3-932-FSM-5951. What other drugs will affect clindamycin? Sometimes it is not safe to use certain medications at the same time. Some drugs can affect your blood levels of other drugs you take, which may increase side effects or make the medications less effective. Other drugs may affect clindamycin, including prescription and xyrn-jdi-fcjgcps medicines, vitamins, and herbal products. Tell your doctor about all your current medicines and any medicine you start or stop using. Where can I get more information? Your pharmacist can provide more information about clindamycin. Remember, keep this and all other medicines out of the reach of children, never share your medicines with others, and use this medication only for the indication prescribed. Every effort has been made to ensure that the information provided by [employer]. [employer]') is accurate, up-to-date, and complete, but no guarantee is made to that effect. Drug information contained herein may be time sensitive. [employer] information has been compiled for use by healthcare practitioners and consumers in the [place] and therefore [employer] does not warrant that uses outside of the [place] are appropriate, unless specifically indicated otherwise. [employer]'s drug information does not endorse drugs, diagnose patients or recommend therapy. [facility] drug information isan informational resource designed to assist licensed healthcare practitioners in caring for their p atients and/or to serve consumers viewing this service as a supplement to, and not a substitute for, the expertise, skill, knowledge and judgment of healthcare practitioners. The absence of a warningfor a given drug or drug combination in no way should be construed to indicate that the drug or drug combination is safe, effective or appropriate for any given patient. [facility] does not assume any responsibility for any aspect of healthcare administered with the aid of information [facility] provides. The information contained herein is not intended to cover all possible uses, directions, precautions, warnings, drug interactions, allergic reactions, or adverse effects. If you have questions about the drugs you are taking, check with your doctor, nurse or pharmacist. Copyright 2199-2654 [facility]. Version: 12.. Revision Date: 11/20/2018. Education Materials Local Lymph Node Infection, Antibiotic Treatment You have a bacterial infection of a lymph node. The lymph nodes are part of your immune system. They are found under the jaw and along the side of the neck, in the armpits and groin, and some other parts of the body. An infection or inflammation in nearby tissues causes the lymph nodes to swell andbecome tender. When a bacterial infection occurs in the lymph node, it becomes very painful. The nearby skin gets red and warm. You may also have a fever. Antibiotics and hot compresses are used to treat this infection. The pain and redness will get better over the next 7 to 10 days. Swelling may take several months to completely go away. Sometimes an abscess (with pus) forms inside the lymph node. If this happens, antibiotics may not be enough to cure the infection. Your health care provider may suggest draining it with a needle or that minor surgery is needed to better drain the pus. You may need blood tests or a study of the pus inside the abscess to guide your treatment. Home care Follow these guidelines when caring for yourself at home: Take all of the antibiotic medicine exactly as prescribed until it is gone. Be careful not to miss any doses, especially during the first few days. Make a hot compress by running hot water over a face cloth. Apply it to the sore area until the cloth cools off. Repeat this for 20 minutes. Use the hot compress 3 times a day for the first 3 days, or until the pain and redness begin to get better. The heat will increase the blood flow to the area and speed the healing process. Be sure that the compress is not so hot that it will burn your skin. You may use acetaminophen or ibuprofen to control pain and fever, unless another medicine was prescribed for this. Don t use ibuprofen in children under 6 months of age. If you have chronic liver or kidney disease, talk with your healthcare provider before using these medicines. Also talk with yourprovider if you ve had a stomach ulcer or gastrointestinal bleeding. Don t give aspirin to anyone under 18 years of age who is ill with a fever. It may cause severe liver damage. Follow-up care Follow up with your healthcare provider, or as advised, after you finish the antibiotics. When to seek medical advice Call your healthcare provider right away if any of these occur: Redness, swelling or pain in the lymph node gets worse The lymph node gets bigger, becomes soft in the middle, or doesn t seem to be getting better after you ve taken the antibiotics for 2 days (48 hours) Pus or fluid drains from the lymph node You have trouble breathing or swallowing Also call your provider right away if you have a fever, or your child s provider if your child has a fever (see Fever and children, below) Fever and children Always use a digital thermometer to check your child s temperature. Never use a mercury thermometer. For infants and toddlers, be sure to use a rectal thermometer correctly. A rectal thermometer may accidentally poke a hole in (perforate) the rectum. It may also pass on germs from the stool. Always follow the product maker s directions for proper use. If you don t feel comfortable taking a rectal t emperature, use another method. When you talk to your child s healthcare provider, tell him or her which method you used to take your child s temperature. Here are guidelines for fever temperature. Ear temperatures aren t accurate before 6 months of age.Don t take an oral temperature until your child is at least 4 years old. Infant under 3 months old: Ask your child s healthcare provider how you should take the temperature. Rectal or forehead (temporal artery) temperature of 100.4 F (38 C) or higher, or as directed by theprovider Armpit temperature of 99 F (37.2 C) or higher, or as directed by the provider Child age 3 to 36 months: Rectal, forehead (temporal artery), or ear temperature of 102 F (38.9 C) or higher, or as directed by the provider Armpit temperature of 101 F (38.3 C) or higher, or as directed by the provider Child of any age: Repeated temperature of 104 F (40 C) or higher, or as directed by the provider Fever that lasts more than 24 hours in a child under 2 years old. Or a fever that lasts for 3 days in a child 2 years or older. 6546-4988 [employer]. [address] [place] [address]. All rights reserved. This information is not intended as a substitute for professional medical care. Always follow yourhealthcare professional's instructions. Additional Information VACCINATE! IT SAVES LIVES! Members of the community who have not yet received the COVID-19 vaccine and would like to receive it can visit one of [facility] vaccine clinics. There are many vaccine clinic locations within the [facility]. For locations and available times, please visit [email or web address]. It is important to note that some COVID mobile vaccine clinics are held outdoors and may be canceled in rainy orstormy conditions. To learn more about pediatric vaccinations (ages 5-11), we invite you to visit the [facility] webpage. [email or web address] learn more about the COVID-19 vaccine, we invite you to visit the [facility] website for a list of frequently asked questions. [email or web address] [facility] Patient Portal Access Instructions: Stay connected with your healthcare team and access your personal medical information anytime with the [facility] Patient Portal. If you would like a full copy of your medical records please contact the [facility] Medical Records Department Monday through Monday between 8a.m. and 4:30p.m. Please follow the directions below to access the portal: 1.Access the email account you provided upon registration to the [facility].2.Look for an invitation email from [facility].3.Open the email and access the invitation link: Accept Invitation to [employer]4.Fill in the required hartley to create your account. Sign into www.[employer] with your username and password that you created in the above steps to stay up to date. You can then view a summary of results, a summary of your visits, and the ability to download your summaries to your computer or send the information securely to a physician. Remember that your healthcare information is confidential, so carefully consider who you will allow to register on the [employer] Patient Portal for access to your information. You can also access the [employer] Patient Portal on the [employer]. Simply click on Health Records under [employer] and then click on the [employer] logo. HOW TO SAFELY DISPOSE OF PRESCRIPTION MEDICATIONS Please use one of the following methods to safely dispose of your unused medications. 1.Use a drug disposal kit: the drug disposal pouch allows you to safely discard your old and unuseddrugs. Ask your nurse to give you one when you are discharged.2.Visit a local take-back location: Many local pharmacies and police departments have programs that collect old and unwanted prescriptiondrugs. Call your local pharmacy or go to http://[email or web address] to find one close to you.3.Make use of household items: Use cat litter or old coffee grounds to dispose medications if other options arenot available. Mix your drugs with these household products, seal them in an airtight container andthrow it into the garbage. Call [facility]: [phone] to be sure your drugs can be disposed of in this way. Some medicines may require a different approach.4.Never flush your medications down the toilet. IF YOU HAVE BEEN PRESCRIBED AN OPIOIDS FOR PAIN If you have been prescribed an opioid (such as hydrocodone, oxycodone or morphine), it is critical to understand the possible side effects and risks of opioid pain medications. Even when taken as directed, opioids can have several side effects including: Tolerance, meaning you might need to take more of a medication for the same pain relief. Nausea, vomiting and/or constipation. Sleepiness, dizziness, dry mouth, confusion, depression or itching. Physical dependence, meaning you have withdrawal symptoms when a medication is stopped ? this can develop within a few days. KNOW YOUR RESPONSIBILITIES It is important to know exactly how much and how often to take the opioid pain medications you are prescribed. Never take opioids in higher amounts or more often than prescribed. Do not combine opioids with alcohol or other drugs that cause drowsiness, such as benzodiazepines, also known as benzos,including diazepam and alprazolam, muscle relaxants or sleep aids. Never sell or share prescriptionopioids. This is illegal. Store opioids in a secure place and out of reach of others (including children, family, friends and visitors). The last page(s) of this document has been signed and retained as a CHART COPY Signatures Patient Education Materials Cervical Adenitis, Antiobiotic Treatment Medication Leaflets clindamycin (oral/injection) My discharge plan and instructions have been reviewed and explained to me and I,DEBBY BAILONd my current condition and have read and understand these discharge instructions. I have received a written copy of the plan/instructions. If I have questions, I am aware that I should contact my doctor. 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10-18-2022 History of Present illness Narrative * Naty Haddad PAVING AND SURFACING LABOURER - 03/15/2022 3:43 PM EDT CC Supra pubic catheter in Place HPI: Debby Bailon is a 41 year old female. The patient is here now for a supra pubic catheter change. Procedure: Performed a catheter change. Removed fluid from balloon in the cook. The supra pubic cook size 18 Fr silicone was removed withcatheter tip intact without difficulty. Inserted 18 Fr catheter using aseptic technique. No urine return. Irrigated supra pubic catheter with 60 mL 0.9% sodium chloride without difficulties. Approximately 60 mLs pale yellow urine return noted. Catheter secured with T-Sponge and tape per patients preference with drain bag. Patient requested extra leg bag to take with her and provided. The patient tolerated the procedure well. Assessment/Plan: Successful catheter change. Return for catheter changes as planned. Cory Box, [place], [place], PA-C as needed. Naty Haddad LPN documented in this encounter[facility] History of Present illness Narrative* Tulio Pompa MD - 02/28/2022 2:56 PM EDT Patient presents with: Diarrhea: Upset stomach, cold and hot chills, nausea x 1 day HPI: Feeling sick since yesterday. Her and sister got sick also after eating [employer]. Watchedchildren of someone who was sick last week. There has been concern that her symptoms are from COVID-19. Positive symptoms: Chills, Nausea, Diarrhea, abdominal cramps, Fatigue, Negative symptoms: Vomiting, blood in stool, OTC: Tylenol PAST MEDICAL HISTORY Diagnosis Date Anxiety Arthritis started age 19 Bilateral leg edema 07/16/2018 Cervical radiculopathy 05/02/2013 Chronic pain 02/12/2015 Cyst of ovary 11/28/2011 Diabetic eye exam (HCC) 06/17/2016 Last done: 01/25/2017 Diabetic eye exam (HCC) 06/17/2016 Last done: 03/08/2019 DJD (degenerative joint disease), thoracic DM (diabetes mellitus), secondary, uncontrolled, w/renal complications 12/05/2017 Dysthymic disorder Depression (non-psychotic), sees [facility]. Elevated LFTs 03/11/2020 Essential hypertension 02/21/2019 Fatty liver 03/11/2020 US 10/2019 History of kidney stones 01/04/2016 History of recurrent UTIs 11/28/2011 Hydronephrosis, right 01/04/2016 Lipomeningocele, sacral level 09/12/2013 Lumbago 02/12/2015 Medicare annual wellness visit, subsequent 02/28/2018 last done: 02/28/2018 Migraine without aura and without status migrainosus, not intractable 10/18/2016 Miscarriage Mixed hyperlipidemia 02/28/2018 Morbid obesity (HCC) 02/12/2015 Muscle weakness of left lower extremity 08/07/2013 Neck pain 05/02/2013 Neurogenic bladder 02/12/2015 Neurogenic bowel 01/06/2016 Neuropathy 02/12/2015 post back surgery with secondary infection. Seeing Dr. Gregg Numbness and tingling of left arm and leg 08/07/2013 Obesity, Class III, BMI >= 40 08/23/2018 Panic attacks Paroxysmal SVT (supraventricular tachycardia) ([facility]) 07/03/2017 Per 48 Hr event monitor 06/30/2017 Primary insomnia 02/17/2016 S/P hernia repair 12/11/2017 Spina bifida (HCC) 01/06/2016 Suprapubic catheter ([facility]) Thyroid cyst 01/01/2018 Complex right sided cysts. US 12/2017, biopsy per Dr. Josue 01/23/2018 benign. Repeat US in a year. Type 2 diabetes mellitus with albuminuria ([facility]) 10/18/2016 Type 2 diabetes mellitus with hyperglycemia, with long-term current use of insulin ([facility]) 07/26/2021 Type 2 diabetes mellitus with proteinuria ([facility]) 02/19/2016 Ulcer of left foot ([facility]) 02/21/2017 Ventral hernia without obstruction or gangrene Weakness of both upper extremities 08/07/2013 Chronic PAST SURGICAL HISTORY Procedure Laterality Date 2D ECHO (EXEP) 06/28/2017 EF=65%. nl AMPUTATION TOE,MT-P JT Left 02/11/2020 left big toe CATH, SUPRAPUBIC/CYSTOSCOPIC 11/07/2018 CYSTOSCOPY,REMV CALCULUS,COMPLIC 11/10/2020 DILATION & CURETTAGE DX&/THER NONOBSTETRIC Dilation & curettage HERNIA REPAIR W/MESH 2019 LEXISCAN STRESS TEST 07/20/2018 negative NUCLEAR STRESS LEXISCAN (CARD) 10/24/2018 negative PAST SURGICAL HISTORY OF 2010 cholecystectomy PAST SURGICAL HISTORY OF 09/2012 back surgery x2 PAST SURGICAL HISTORY OF Left 02/2014 foot x2 PAST SURGICAL HISTORY OF 07/2015 Bowles stoma PAST SURGICAL HISTORY OF 09/30/2021 Laparoscopic end colostomy REPAIR UMBILICAL HERNIA 12/11/2017 STRESS ECHO 12/09/2019 Negative STRESS TEST 07/18/2017 normal STRESS TEST 03/15/2018 negative MEDICATIONS: Current Outpatient Medications Medication Sig doxycycline hyclate (VIBRAMYCIN) 100 mg capsule TWICE A DAY busPIRone (BUSPAR) 15 mg tablet Take 15 mg by mouth. insulin lispro (HUMALOG KWIKPEN) 100 unit/mL Inject subcutaneously. phenazopyridine (PYRIDIUM, GERIDIUM) 200 mg tablet TWICE DAILY NEEDED acetaminophen (TYLENOL) 500 mg tablet Take 650 mg by mouth. magnesium hydroxide (MOM) 400 mg/5 mL suspension Take 30 mL by mouth every 6 hours. (Patient takingdifferently: Take 30 mL by mouth every 6 hours. Takes every six hours as needed) insulin glargine (LANTUS SOLOSTAR U-100 INSULIN) 100 unit/mL (3 mL) Inject 33 Units subcutaneously daily at bedtime. E11.65 insulin aspart, niacinamide, (FIASP FLEXTOUCH U-100 INSULIN) 100 unit/mL (3 mL) pen Inject 18 Unitssubcutaneously three times daily before meals. (Includes SS # 2 QAC -> Per Umm, Dr. Monson) MAX TDD = 55 UNITS / DAY. E11.65 glimepiride (AMARYL) 2 mg tablet Take 1 tablet by mouth twice daily with meals. Per Umm: Dr. Monson lisinopril (ZESTRIL, PRINIVIL) 5 mg tablet Take 1 tablet by mouth once daily. Per Dr. Ermias Salomon loratadine (CLARITIN) 10 mg tablet Take 1 tablet by mouth once daily. atorvastatin (LIPITOR) 80 mg tablet Take 1 tablet by mouth once daily. furosemide (LASIX) 40 mg tablet Take 1 tablet by mouth once daily. Take in morning oxybutynin ER (DITROPAN XL) 15 mg 24 hr Extended Rel Tab Take 1 tablet by mouth once daily. propranolol (INDERAL) 20 mg tablet Take 1 tablet by mouth twice daily. traZODone (DESYREL) 100 mg tablet Take 1 tablet by mouth daily at bedtime. furosemide (LASIX) 20 mg tablet Take 20 mg by mouth daily at bedtime. sodium chloride irrig solution (NACL 0.9% IRRIGATION BOTTLE) To use for catheter irrigation daily or as needed. Insulin [place], Disposable, (COMFORT EZ PEN NEEDLES) 29 gauge x 1/2 One needle with each lantus shot once a day. Dx: E13.29 on insulin PSEUDOEPHEDRINE HCL ORAL Take 30 mg by mouth as needed. ondansetron orally disintegrating (ZOFRAN ODT) 8 mg disintegrating tablet 8 mg as needed. fluticasone (FLONASE) 50 mcg/actuation nasal spray Use 2 Sprays in each nostril once daily. Rinse mouth after use. Insulin [place], Disposable, 32 gauge x 5/16 ndle Use once daily with Victoza COMPOUNDED PRESCRIPTION Stoma catheter tube. DX: Qo5.4 and K59.2 Lancets (ACCU-CHEK FASTCLIX) lancets Test blood sugar 2 times/day. Dx: Other DM Code E13.29 InsulinUse: No (Patient taking differently: Test blood sugar 2 times/day. Dx: Other DM Code E13.29 InsulinUse: No) No current facility-administered medications for this visit. ALLERGIES: ALLERGIES Allergen Reactions Ceftriaxone Anaphylaxis Had skin testing on 12/09 at allergy office which was positive. Also had prior anaphylactic reactionon 09/30/2021. Patient should avoid ceftriaxone and all other cephalosporins. She has tolerated amoxicillin outpatient in the past. Mushroom Anaphylaxis Peanuts Anaphylaxis Latex Rash Cephalosporins Anaphylaxis Patient had anaphylaxis pre-op on 09/30 when this was given with other induction agents. Patient hadskin testing on 12/09/21 which was positive to ceftriaxone (see separate note from same day). Pleaseavoid all cephalosporins. Gabapentin Mental Status Change Patient reports having cognitive/memory issues after taking Peanut Anaphylaxis Mri Contrast [Gadol* GI Upset VITALS: BP 138/80 Pulse 102 Temp 37.4 C (99.4 F) Resp 21 Wt 92.3 kg (203 lb 6.4 oz) LMP 11/24/2021 (Exact Date) SpO2 98% BMI 38.43 kg/m PHYSICAL EXAM: GEN: mildly ill appearing HEENT: PERRL, EOMI, conjunctiva clear Neck: supple, no thyromegaly, no lymphadenopathy HEART: regular rate and rhythm, no murmurs LUNGS: clear to auscultation, no wheezes or crackles, no increased WOB ABD: ostomy bag mid abdomen, suprapubic catheter. Tender RLQ and suprapubic ASSESSMENT/PLAN: 1. Gastroenteritis - ICD9: 558.9, ICD10: K52.9 Contagious gastroenteritis vs food poisoning. Hydration with electrolyte containing fluids encouraged. Resume normal solid intake as tolerated. Follow up in the ER with signs of dehydration, increasing abdominal pain, high fever, or blood in vomit or stool. - 2019 CORONAVIRUS Tulio Pompa MD documented in this encounter[facility] History of Present illness Narrative* Xavier Josue MD - 02/28/2022 7:38 AM EDT HISTORY AND PHYSICAL Debby Alvarenga Uvaldo 1980 REFERRING PHYSICIAN: Cameron CHIEF COMPLAINT: Follow Up (thyroid) HPI: HPI: The patient is a 41 year old female with thyroid problems. She notes increasing dysphagia of the throat area, wants to have thyroid surgery. She states that she has to hold her head in a certain position to be able to swallow - liquids and/or solids, even water. She points to the anterior part of her throat as to foods being stuck. She notes globus symptoms. She has no known thyroid cancer in her family. She has been followed by Dr. Josue for FNA thyroid lesions in the past and wants to have surgery by Dr. Josue. US 02/14/2022 RESULT: Right Lobe: 5.1 x 2.1 x 2.3 cm; homogeneous echogenicity, expected vascular flow. Left Lobe: 4.3 x 1.2 x 1.5 cm; homogeneous echogenicity, expected vascular flow. Isthmus: 0.2 cm The most suspicious thyroid nodule(s) (up to four) as below: NODULE 1: Location: Right mid Size: 3.2 x 2.5 x 2.3 cm, previously 3.0 x 2.5 x 2.2 cm. Characteristics: Composition: Mixed cystic and solid, 1 point Echogenicity: Echogenicity cannot be determined, 1 point Shape: [id number], 0 points Margin: Smooth, 0 points Echogenic foci (add points for all that apply): Macrocalcifications, 1 point Internal vascularity: present Interval growth: No significant growth given differences in technique TI-RADS Category: TR3 ACR Recommendation: TI-RADS 3 nodule. FNA is recommended for nodules measuring greater than 2.5cm. The patient is being seen by me today at the request of Dr. Barnes for my opinion and advice regarding Thyroid nodule (primary encounter diagnosis) Pharyngeal dysphagia Globus sensation Tenderness of neck. PAST MEDICAL HISTORY Diagnosis Date Anxiety Arthritis started age 19 Bilateral leg edema 07/16/2018 Cervical radiculopathy 05/02/2013 Chronic pain 02/12/2015 Cyst of ovary 11/28/2011 Diabetic eye exam (HCC) 06/17/2016 Last done: 01/25/2017 Diabetic eye exam (HCC) 06/17/2016 Last done: 03/08/2019 DJD (degenerative joint disease), thoracic DM (diabetes mellitus), secondary, uncontrolled, w/renal complications 12/05/2017 Dysthymic disorder Depression (non-psychotic), sees [facility] at [facility]. Elevated LFTs 03/11/2020 Essential hypertension 02/21/2019 Fatty liver 03/11/2020 US 10/2019 History of kidney stones 01/04/2016 History of recurrent UTIs 11/28/2011 Hydronephrosis, right 01/04/2016 Lipomeningocele, sacral level 09/12/2013 Lumbago 02/12/2015 Medicare annual wellness visit, subsequent 02/28/2018 last done: 02/28/2018 Migraine without aura and without status migrainosus, not intractable 10/18/2016 Miscarriage Mixed hyperlipidemia 02/28/2018 Morbid obesity (HCC) 02/12/2015 Muscle weakness of left lower extremity 08/07/2013 Neck pain 05/02/2013 Neurogenic bladder 02/12/2015 Neurogenic bowel 01/06/2016 Neuropathy 02/12/2015 post back surgery with secondary infection. Seeing Dr. Gregg Numbness and tingling of left arm and leg 08/07/2013 Obesity, Class III, BMI >= 40 08/23/2018 Panic attacks Paroxysmal SVT (supraventricular tachycardia) ([facility]) 07/03/2017 Per 48 Hr event monitor 06/30/2017 Primary insomnia 02/17/2016 S/P hernia repair 12/11/2017 Spina bifida (HCC) 01/06/2016 Suprapubic catheter ([facility]) Thyroid cyst 01/01/2018 Complex right sided cysts. US 12/2017, biopsy per Dr. Josue 01/23/2018 benign. Repeat US in a year. 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) 10/18/2016 Type 2 diabetes mellitus with hyperglycemia, with long-term current use of insulin (HCC) 07/26/2021 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) 02/19/2016 Ulcer of left foot (HCC) 02/21/2017 Ventral hernia without obstruction or gangrene Weakness of both upper extremities 08/07/2013 Chronic PAST SURGICAL HISTORY Procedure Laterality Date 2D ECHO (EXEP) 06/28/2017 EF=65%. nl AMPUTATION TOE,MT-P JT Left 02/11/2020 left big toe CATH, SUPRAPUBIC/CYSTOSCOPIC 11/07/2018 CYSTOSCOPY,REMV CALCULUS,COMPLIC 11/10/2020 DILATION & CURETTAGE DX&/THER NONOBSTETRIC Dilation & curettage HERNIA REPAIR W/MESH 2018 LEXISCAN STRESS TEST 07/20/2018 negative NUCLEAR STRESS LEXISCAN (CARD) 10/24/2018 negative PAST SURGICAL HISTORY OF 2010 cholecystectomy PAST SURGICAL HISTORY OF 09/2012 back surgery x2 PAST SURGICAL HISTORY OF Left & 02/2014 foot x2 PAST SURGICAL HISTORY OF 07/2015 Bowles stoma PAST SURGICAL HISTORY OF 09/30/2021 Laparoscopic end colostomy REPAIR UMBILICAL HERNIA 12/11/2017 STRESS ECHO 12/09/2019 Negative STRESS TEST 07/18/2017 normal STRESS TEST 03/15/2018 negative Current Outpatient Medications Medication Sig Dispense Refill doxycycline hyclate (VIBRAMYCIN) 100 mg capsule TWICE A DAY busPIRone (BUSPAR) 15 mg tablet Take 15 mg by mouth. insulin lispro (HUMALOG KWIKPEN) 100 unit/mL Inject subcutaneously. phenazopyridine (PYRIDIUM, GERIDIUM) 200 mg tablet TWICE DAILY NEEDED acetaminophen (TYLENOL) 500 mg tablet Take 650 mg by mouth. magnesium hydroxide (MOM) 400 mg/5 mL suspension Take 30 mL by mouth every 6 hours. (Patient takingdifferently: Take 30 mL by mouth every 6 hours. Takes every six hours as needed) insulin glargine (LANTUS SOLOSTAR U-100 INSULIN) 100 unit/mL (3 mL) Inject 33 Units subcutaneously daily at bedtime. E11.65 0 insulin aspart, niacinamide, (FIASP FLEXTOUCH U-100 INSULIN) 100 unit/mL (3 mL) pen Inject 18 Unitssubcutaneously three times daily before meals. (Includes SS # 2 QAC -> Per Endo, Dr. Monson) MAX TDD = 55 UNITS / DAY. E11.65 60 mL 2 glimepiride (AMARYL) 2 mg tablet Take 1 tablet by mouth twice daily with meals. Per Endo: Dr. Monson lisinopril (ZESTRIL, PRINIVIL) 5 mg tablet Take 1 tablet by mouth once daily. Per Dr. Ermias Salomon loratadine (CLARITIN) 10 mg tablet Take 1 tablet by mouth once daily. 30 tablet 11 atorvastatin (LIPITOR) 80 mg tablet Take 1 tablet by mouth once daily. 90 tablet 1 furosemide (LASIX) 40 mg tablet Take 1 tablet by mouth once daily. Take in morning 90 tablet 1 oxybutynin ER (DITROPAN XL) 15 mg 24 hr Extended Rel Tab Take 1 tablet by mouth once daily. 90 tablet 1 propranolol (INDERAL) 20 mg tablet Take 1 tablet by mouth twice daily. 180 tablet 1 traZODone (DESYREL) 100 mg tablet Take 1 tablet by mouth daily at bedtime. 90 tablet 1 furosemide (LASIX) 20 mg tablet Take 20 mg by mouth daily at bedtime. sodium chloride irrig solution (NACL 0.9% IRRIGATION BOTTLE) To use for catheter irrigation daily or as needed. 1000 mL 11 Insulin [place], Disposable, (COMFORT EZ PEN NEEDLES) 29 gauge x 1/2 One needle with each lantus shot once a day. Dx: E13.29 on insulin 100 Each 3 PSEUDOEPHEDRINE HCL ORAL Take 30 mg by mouth as needed. ondansetron orally disintegrating (ZOFRAN ODT) 8 mg disintegrating tablet 8 mg as needed. fluticasone (FLONASE) 50 mcg/actuation nasal spray Use 2 Sprays in each nostril once daily. Rinse mouth after use. 1 Bottle 3 Insulin [place], Disposable, 32 gauge x 5/16 ndle Use once daily with Victoza 100 Each 5 Lancets (ACCU-CHEK FASTCLIX) lancets Test blood sugar 2 times/day. Dx: Other DM Code E13.29 InsulinUse: No (Patient taking differently: Test blood sugar 2 times/day. Dx: Other DM Code E13.29 InsulinUse: No) 100 Each 11 COMPOUNDED PRESCRIPTION Stoma catheter tube. DX: Qo5.4 and K59.2 1 Device 0 No current facility-administered medications for this visit. ALLERGIES: Ceftriaxone, Mushroom, Peanuts, Latex, Cephalosporins, Gabapentin, Peanut, and Mri Contrast [Gadolinium-Containing Contrast Media] PERSONAL HISTORY: Social History Tobacco Use Smoking status: Never Smokeless tobacco: Never Vaping Use Vaping Use: Never used Substance Use Topics Alcohol use: Not Currently Comment: social Drug use: Never FAMILY HISTORY: FAMILY HISTORY Problem Relation Age of Onset Cancer Father Skin Arthritis Mother Diabetes Mother Heart Mother Hypertension Mother Lipids Mother Stroke Mother Thyroid Mother Cancer Maternal Grandmother LIVER CANCER Cancer Maternal Uncle Great Uncle Cancer Maternal Uncle Great Uncle Anesthesia Problems No Family History REVIEW OF SYSTEMS: General: The patient NOTES fatigue, NOTES weight loss, denies weight gain, denies feeling hot, and denies feelings of cold. Eyes: The patient denies glaucoma, denies eye injury/surgery, wears glasses or contacts. Ear/Nose/Throat: The patient NOTES allergies, denies hayfever, denies ear infections, and denies bloody noses. Cardiovascular: The patient denies chest pain, denies heart disease, NOTES high blood pressure,denies cardiac stent, denies prior heart attack, NOTES irregular heart beat, denies high cholesterol, denies poor circulation, denies heart failure, other cardiac issues, NOTES claudication, denies cold feet, denies peripheral arterial stent. Respiratory: The patient denies tuberculosis, denies pneumonia, denies frequent cough, denies pulmonary embolism, denies shortness of breath, and denies coughing up blood. Gastrointestinal: The patient NOTES difficulty swallowing, denies acid reflux, denies ulcers, denies vomiting, denies jaundice/hepatitis, denies gallbladder problems, denies black or tarry stools, denies hemorrhoids, denies bleeding from rectum, denies diverticulitis, NOTES constipation, denies diarrhea, denies loss of stool control, and NOTES hernias. Kidney/Bladder: The patient denies kidney stones, denies urine infections, and denies bloody urine. Skin: The patient denies a history of skin cancer, denies bleeding/changing moles, and denies a history of skin rash. Neurologic: The patient denies a history of epilepsy/convulsions, NOTES headaches, NOTES head/spinal injuries, and denies stroke/TIA. Psychiatric: The patient denies psychiatric medications, NOTES depression, and denies voices, denies substance abuse. Endocrine: The patient denies thyroid disorders, denies diabetes, and denies hormonal problems. Hematologic: The [...] gout. When was patient's last Mammogram screening? 2021 Last Colonoscopy: NONE PHYSICAL EXAMINATION: General: The patient is 41 year old female, well nourished, well hydrated in no acute distress. Thepatient is oriented to time, place, and person. VITALS: Blood pressure 108/70, pulse 108, temperature 36.4 C (97.5 F), height 154.9 cm (5' 1), weight 93.9 kg (207 lb), last menstrual period 11/24/2021, SpO2 98 %. Body mass index is 39.11 kg/m . HEENT: Normal cephalic, ataumatic, pupils are equally round, sclera are anicteric, mucous membranesare moist, oropharynx is clear. Neck has no masses, asymmetry or lymphadenopathy. Thyroid exam fullness is palpated on the right side. Some slight tenderness is noted as well.. Respiratory: Clear to auscultation and percussion. Normal respiratory excursion and pattern. Cardiac: Examination is regular rate and rhythm. Abdominal exam: Soft, nontender, with no palpable masses. No hepatosplenomegaly. No palpable hernias. Rectal exam: exam deferred Extremities: no clubbing, cyanosis or edema. No adenopathy. Other: LABORATORY VALUES: As Noted RADIOLOGIC STUDIES: As Noted Assessment IMPRESSION: NODULE - right THYROID PLAN: I plan to perform an FNAC of the right Thyroid. Diagnoses: (E04.1) Thyroid nodule (primary encounter diagnosis) (R13.13) Pharyngeal dysphagia (R09.89) Globus sensation (M54.2) Tenderness of neck My findings have been communicated to Dr. Will Brannon MD via shared medical record. This note will be forwarded to Dr. Will Brannon MD. Return to Clinic: The patient is instructed to follow-up with me 1 week post operatively. Xavier Josue III, MD documented in this encounter[facility]09-[facility] History of Present illness Narrative* Fawn Herrera MD - 02/16/2022 5:49 PM EDT HISTORY AND PHYSICAL Debby Bailon 1980 REFERRING PHYSICIAN: Will Brannon MD CHIEF COMPLAINT: Consult (Thyroid nodule) HPI: The patient is a 41 year old female with thyroid problems. She notes increasing dysphagia of the throat area, wants to have thyroid surgery. She states that she has to hold her head in a certain position to be able to swallow - liquids and/or solids, even water. She points to the anterior part of her throat as to foods being stuck. She notes globus symptoms. She has no known thyroid cancer in her family. She has been followed by Dr. Josue for FNA thyroid lesions in the past and wants to have surgery by Dr. Josue. US 02/14/2022 RESULT: Right Lobe: 5.1 x 2.1 x 2.3 cm; homogeneous echogenicity, expected vascular flow. Left Lobe: 4.3 x 1.2 x 1.5 cm; homogeneous echogenicity, expected vascular flow. Isthmus: 0.2 cm The most suspicious thyroid nodule(s) (up to four) as below: NODULE 1: Location: Right mid Size: 3.2 x 2.5 x 2.3 cm, previously 3.0 x 2.5 x 2.2 cm. Characteristics: Composition: Mixed cystic and solid, 1 point Echogenicity: Echogenicity cannot be determined, 1 point Shape: [id number], 0 points Margin: Smooth, 0 points Echogenic foci (add points for all that apply): Macrocalcifications, 1 point Internal vascularity: present Interval growth: No significant growth given differences in technique TI-RADS Category: TR3 ACR Recommendation: TI-RADS 3 nodule. FNA is recommended for nodules measuring greater than 2.5cm. PAST MEDICAL HISTORY Diagnosis Date Anxiety Arthritis started age 19 Bilateral leg edema 07/16/2018 Cervical radiculopathy 05/02/2013 Chronic pain 02/12/2015 Cyst of ovary 11/28/2011 Diabetic eye exam (HCC) 06/17/2016 Last done: 01/25/2017 Diabetic eye exam (HCC) 06/17/2016 Last done: 03/08/2019 DJD (degenerative joint disease), thoracic DM (diabetes mellitus), secondary, uncontrolled, w/renal complications 12/05/2017 Dysthymic disorder Depression (non-psychotic), sees [facility]. Elevated LFTs 03/11/2020 Essential hypertension 02/21/2019 Fatty liver 03/11/2020 US 10/2019 History of kidney stones 01/04/2016 History of recurrent UTIs 11/28/2011 Hydronephrosis, right 01/04/2016 Lipomeningocele, sacral level 09/12/2013 Lumbago 02/12/2015 Medicare annual wellness visit, subsequent 02/28/2018 last done: 02/28/2018 Migraine without aura and without status migrainosus, not intractable 10/18/2016 Miscarriage Mixed hyperlipidemia 02/28/2018 Morbid obesity (HCC) 02/12/2015 Muscle weakness of left lower extremity 08/07/2013 Neck pain 05/02/2013 Neurogenic bladder 02/12/2015 Neurogenic bowel 01/06/2016 Neuropathy 02/12/2015 post back surgery with secondary infection. Seeing Dr. Gregg Numbness and tingling of left arm and leg 08/07/2013 Obesity, Class III, BMI >= 40 08/23/2018 Panic attacks Paroxysmal SVT (supraventricular tachycardia) (HCC) 07/03/2017 Per 48 Hr event monitor 06/30/2017 Primary insomnia 02/17/2016 S/P hernia repair 12/11/2017 Spina bifida (HCC) 01/06/2016 Suprapubic catheter (HCC) Thyroid cyst 01/01/2018 Complex right sided cysts. US 12/2017, biopsy per Dr. Josue 01/23/2018 benign. Repeat US in a year. 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) 10/18/2016 Type 2 diabetes mellitus with hyperglycemia, with long-term current use of insulin (HCC) 07/26/2021 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) 02/19/2016 Ulcer of left foot (HCC) 02/21/2017 Ventral hernia without obstruction or gangrene Weakness of both upper extremities 08/07/2013 Chronic PAST SURGICAL HISTORY Procedure Laterality Date 2D ECHO (EXEP) 06/28/2017 EF=65%. nl AMPUTATION TOE,MT-P JT Left 02/11/2020 left big toe CATH, SUPRAPUBIC/CYSTOSCOPIC 11/07/2018 CYSTOSCOPY,REMV CALCULUS,COMPLIC 11/10/2020 DILATION & CURETTAGE DX&/THER NONOBSTETRIC Dilation & curettage HERNIA REPAIR W/MESH 2018 LEXISCAN STRESS TEST 07/20/2018 negative NUCLEAR STRESS LEXISCAN (CARD) 10/24/2018 negative PAST SURGICAL HISTORY OF 2011 cholecystectomy PAST SURGICAL HISTORY OF 09/2012 back surgery x2 PAST SURGICAL HISTORY OF Left & 02/2014 foot x2 PAST SURGICAL HISTORY OF 07/2015 Bowles stoma PAST SURGICAL HISTORY OF 09/30/2021 Laparoscopic end colostomy REPAIR UMBILICAL HERNIA 12/11/2017 STRESS ECHO 12/09/2019 Negative STRESS TEST 07/18/2017 normal STRESS TEST 03/15/2018 negative Current Outpatient Medications Medication Sig doxycycline hyclate (VIBRAMYCIN) 100 mg capsule TWICE A DAY clindamycin (CLEOCIN) 300 mg capsule Take 1 capsule by mouth four times daily for 10 days. busPIRone (BUSPAR) 15 mg tablet Take 15 mg by mouth. insulin lispro (HUMALOG KWIKPEN) 100 unit/mL Inject subcutaneously. phenazopyridine (PYRIDIUM, GERIDIUM) 200 mg tablet TWICE DAILY NEEDED acetaminophen (TYLENOL) 500 mg tablet Take 650 mg by mouth. magnesium hydroxide (MOM) 400 mg/5 mL suspension Take 30 mL by mouth every 6 hours. (Patient takingdifferently: Take 30 mL by mouth every 6 hours. Takes every six hours as needed) insulin glargine (LANTUS SOLOSTAR U-100 INSULIN) 100 unit/mL (3 mL) Inject 33 Units subcutaneously daily at bedtime. E11.65 insulin aspart, niacinamide, (FIASP FLEXTOUCH U-100 INSULIN) 100 unit/mL (3 mL) pen Inject 18 Unitssubcutaneously three times daily before meals. (Includes SS # 2 QAC -> Per Umm, Dr. Monson) MAX TDD = 55 UNITS / DAY. E11.65 glimepiride (AMARYL) 2 mg tablet Take 1 tablet by mouth twice daily with meals. Per Umm: Dr. Monson lisinopril (ZESTRIL, PRINIVIL) 5 mg tablet Take 1 tablet by mouth once daily. Per Dr. Ermias Salomon loratadine (CLARITIN) 10 mg tablet Take 1 tablet by mouth once daily. atorvastatin (LIPITOR) 80 mg tablet Take 1 tablet by mouth once daily. furosemide (LASIX) 40 mg tablet Take 1 tablet by mouth once daily. Take in morning oxybutynin ER (DITROPAN XL) 15 mg 24 hr Extended Rel Tab Take 1 tablet by mouth once daily. propranolol (INDERAL) 20 mg tablet Take 1 tablet by mouth twice daily. traZODone (DESYREL) 100 mg tablet Take 1 tablet by mouth daily at bedtime. furosemide (LASIX) 20 mg tablet Take 20 mg by mouth daily at bedtime. sodium chloride irrig solution (NACL 0.9% IRRIGATION BOTTLE) To use for catheter irrigation daily or as needed. Insulin [place], Disposable, (COMFORT EZ PEN NEEDLES) 29 gauge x 1/2 One needle with each lantus shot once a day. Dx: E13.29 on insulin PSEUDOEPHEDRINE HCL ORAL Take 30 mg by mouth as needed. ondansetron orally disintegrating (ZOFRAN ODT) 8 mg disintegrating tablet 8 mg as needed. fluticasone (FLONASE) 50 mcg/actuation nasal spray Use 2 Sprays in each nostril once daily. Rinse mouth after use. Insulin [place], Disposable, 32 gauge x 5/16 ndle Use once daily with Victoza Lancets (ACCU-CHEK FASTCLIX) lancets Test blood sugar 2 times/day. Dx: Other DM Code E13.29 InsulinUse: No (Patient taking differently: Test blood sugar 2 times/day. Dx: Other DM Code E13.29 InsulinUse: No) COMPOUNDED PRESCRIPTION Stoma catheter tube. DX: Qo5.4 and K59.2 ALLERGIES: Ceftriaxone, Mushroom, Peanuts, Latex, Cephalosporins, Gabapentin, Peanut, and Mri Contrast [Gadolinium-Containing Contrast Media] PERSONAL HISTORY: Social History Tobacco Use Smoking status: Never Smokeless tobacco: Never Vaping Use Vaping Use: Never used Substance Use Topics Alcohol use: Not Currently Comment: social Drug use: Never FAMILY HISTORY Problem Relation Age of Onset Cancer Father Skin Arthritis Mother Diabetes Mother Heart Mother Hypertension Mother Lipids Mother Stroke Mother Thyroid Mother Cancer Maternal Grandmother LIVER CANCER Cancer Maternal Uncle Great Uncle Cancer Maternal Uncle Great Uncle Anesthesia Problems No Family History The review of systems data was entered by the nurse and reviewed by fl Nursing Notes: Lavonne Patel RN 02/16/2022 3:07 PM Signed REVIEW OF SYSTEMS: General: The patient NOTES fatigue, NOTES weight loss, denies weight gain, denies feeling hot, and denies feelings of cold. Eyes: The patient denies glaucoma, denies eye injury/surgery, wears glasses or contacts. Ear/Nose/Throat: The patient NOTES allergies, denies hayfever, denies ear infections, and denies bloody noses. Cardiovascular: The patient denies chest pain, denies heart disease, NOTES high blood pressure,denies cardiac stent, denies prior heart attack, NOTES irregular heart beat, denies high cholesterol, denies poor circulation, denies heart failure, other cardiac issues, NOTES claudication, denies cold feet, denies peripheral arterial stent. Respiratory: The patient denies tuberculosis, denies pneumonia, denies frequent cough, denies pulmonary embolism, denies shortness of breath, and denies coughing up blood. Gastrointestinal: The patient NOTES difficulty swallowing, denies acid reflux, denies ulcers, denies vomiting, denies jaundice/hepatitis, denies gallbladder problems, denies black or tarry stools, denies hemorrhoids, denies bleeding from rectum, denies diverticulitis, NOTES constipation, denies diarrhea, denies loss of stool control, and NOTES hernias. Kidney/Bladder: The patient denies kidney stones, denies urine infections, and denies bloody urine. Skin: The patient denies a history of skin cancer, denies bleeding/changing moles, and denies a history of skin rash. Neurologic: The patient denies a history of epilepsy/convulsions, NOTES headaches, NOTES head/spinal injuries, and denies stroke/TIA. Psychiatric: The patient denies psychiatric medications, NOTES depression, and denies voices, denies substance abuse. Endocrine: The patient denies thyroid disorders, denies diabetes, and denies hormonal problems. Hematologic: The [...] gout. When was patient's last Mammogram screening? 2021 Last Colonoscopy: NONE Lavonne Patel RN PHYSICAL EXAMINATION: General: The patient is 41 year old female, well nourished, well hydrated in no acute distress. Thepatient is oriented to time, place, and person. VITALS: Blood pressure 102/72, pulse 101, temperature 36.1 C (96.9 F), height 154.9 cm (5' 1), weight 94.2 kg (207 lb 9.6 oz), last menstrual period 11/24/2021, SpO2 98 %. Body mass index is 39.23 kg/m . Head - Normocephalic. EOM intact with sclera clear and no icterus noted. Wearing glasses Neck - supple with no jugular venous distention noted. Trachea is midline. Lungs - clear to auscultation. Normal breath sounds. No rales/rhonchi/wheezing noted. No labored breathing noted, such as retractions. No cough heard. Lymph - no cervical adenopathy detected, no supraclavicular adenopathy detected, no axillary adenopathy detected Heart - normal S1 and S2 auscultated. No rubs/clicks/murmurs noted. Regular rate. Abdomen - soft and benign. Colostomy functioning. Extremities - no calf tenderness noted. No pitting edema noted. Skin - normal skin integrity. Neurological - gait normal, no focal deficits noted. Psych - calm and appropriate RADIOLOGIC STUDIES: As Noted Assessment IMPRESSION: thyroid problems PLAN: I have discussed the above with the patient. I will refer patient to Dr. Josue for consideration of thyroid surgery. Given that she wishes to undergo thyroid surgery, will forgo FNA of thyroid nodule at this point intime. The patient acknowledges above. I have answered all questions to the patient s satisfaction and the patient has no further questions. . Diagnoses: (R09.89) Globus sensation (primary encounter diagnosis) (E04.1) Thyroid nodule (R13.13) Pharyngeal dysphagia Return to Clinic: The patient will be scheduled to be evaluated by Dr. Josue. I have confirmed and edited as necessary, the PFSH and ROS obtained by others. Consultation requested by Dr. Will Brannon for an opinion regarding patient's thyroid issues. My final recommendations will be communicated back to the requesting physician by way of shared Medicalrecord or letter to requesting physician via US mail. Medical Decision Making: Problems: Moderate: 1+ chronic illnesses with change Medical Decision Making Level: 2 - Straightforward Fawn Herrera MD documented [facility]* Lavonne Patel RN - 02/16/2022 3:03 PM EDT REVIEW OF SYSTEMS: General: The patient NOTES fatigue, NOTES weight loss, denies weight gain, denies feeling hot, and denies feelings of cold. Eyes: The patient denies glaucoma, denies eye injury/surgery, wears glasses or contacts. Ear/Nose/Throat: The patient NOTES allergies, denies hayfever, denies ear infections, and denies bloody noses. Cardiovascular: The patient denies chest pain, denies heart disease, NOTES high blood pressure,denies cardiac stent, denies prior heart attack, NOTES irregular heart beat, denies high cholesterol, denies poor circulation, denies heart failure, other cardiac issues, NOTES claudication, denies cold feet, denies peripheral arterial stent. Respiratory: The patient denies tuberculosis, denies pneumonia, denies frequent cough, denies pulmonary embolism, denies shortness of breath, and denies coughing up blood. Gastrointestinal: The patient NOTES difficulty swallowing, denies acid reflux, denies ulcers, denies vomiting, denies jaundice/hepatitis, denies gallbladder problems, denies black or tarry stools, denies hemorrhoids, denies bleeding from rectum, denies diverticulitis, NOTES constipation, denies diarrhea, denies loss of stool control, and NOTES hernias. Kidney/Bladder: The patient denies kidney stones, denies urine infections, and denies bloody urine. Skin: The patient denies a history of skin cancer, denies bleeding/changing moles, and denies a history of skin rash. Neurologic: The patient denies a history of epilepsy/convulsions, NOTES headaches, NOTES head/spinal injuries, and denies stroke/TIA. Psychiatric: The patient denies psychiatric medications, NOTES depression, and denies voices, denies substance abuse. Endocrine: The patient denies thyroid disorders, denies diabetes, and denies hormonal problems. Hematologic: The [...] gout. When was patient's last Mammogram screening? 2021 Last Colonoscopy: NONE Lavonne Patel RN documented [facility] Hospital Discharge instructions Patient Education 02/15/2022 21:58:51 Bladder Infection, Female (Adult) Bladder Infection, Female (Adult) Urine is normally doesn't have any bacteria in it. But bacteria can get into the urinary tract fromthe skin around the rectum. Or they can travel in the blood from elsewhere in the body. Once they are in your urinary tract, they can cause infection in the urethra (urethritis), the bladder (cystitis), or the kidneys (pyelonephritis). The most common place for an infection is in the bladder. This is called a bladder infection. This is one of the most common infections in women. Most bladder infections are easily treated. They are not serious unless the infection spreads to the kidney. The phrases bladder infection, UTI, and cystitis are often used to describe the same thing. But they are not always the same. Cystitis is an inflammation of the bladder. The most common cause of cystitis is an infection. Symptoms The infection causes inflammation in the urethra and bladder. This causes many of the symptoms. Themost common symptoms of a bladder infection are: Pain or burning when urinating Having to urinate more often than usual Urgent need to urinate Only a small amount of urine comes out Blood in urine Abdominal discomfort. This is usually in the lower abdomen above the pubic bone. Cloudy urine Strong- or bad-smelling urine Unable to urinate (urinary retention) Unable to hold urine in (urinary incontinence) Fever Loss of appetite Confusion (in older adults) Causes Bladder infections are not contagious. You can't get one from someone else, from a toilet seat, or from sharing a bath. The most common cause of bladder infections is bacteria from the bowels. The bacteria get onto the skin around the opening of the urethra. From there, they can get into the urine and travel up to thebladder, causing inflammation and infection. This usually happens because of: Wiping improperly after urinating. Always wipe from front to back. Bowel incontinence Procedures such as having a catheter inserted Older age Not emptying your bladder. This can allow bacteria a chance to grow in your urine. Dehydration Constipation Sex Use of a diaphragm for control Treatment Bladder infections are diagnosed by a urine test. They are treated with antibiotics and usually clear up quickly without complications. Treatment helps prevent a more serious kidney infection. Medicines Medicines can help in the treatment of a bladder infection: Take antibiotics until they are used up, even if you feel better. It is important to finish them tomake sure the infection has cleared. You can use acetaminophen or ibuprofen for pain, fever, or discomfort, unless another medicine was prescribed. If you have chronic liver or kidney disease, talk with your healthcare provider before using these medicines. Also talk with your provider if you've ever had a stomach ulcer or gastrointestinal bleeding, or are taking blood-thinner medicines. If you are given phenazopydridine to reduce burning with urination, it will cause your urine to become a bright orange color. This can stain clothing. Care and prevention These self-care steps can help prevent future infections: Drink plenty of fluids to prevent dehydration and flush out your bladder. Do this unless you must restrict fluids for other health reasons, or your doctor told you not to. Proper cleaning after going to the bathroom is important. Wipe from front to back after using the toilet to prevent the spread of bacteria. Urinate more often. Don't try to hold urine in for a long time. Wear loose-fitting clothes and cotton underwear. Avoid tight-fitting pants. Improve your diet and prevent constipation. Eat more fresh fruit and vegetables, and fiber, and less junk and fatty foods. Avoid sex until your symptoms are gone. Avoid caffeine, alcohol, and spicy foods. These can irritate your bladder. Urinate right after intercourse to flush out your bladder. If you use control pills and have frequent bladder infections, discuss it with your doctor. Follow-up care Call your healthcare provider if all symptoms are not gone after 3 days of treatment. This is especially important if you have repeat infections. If a culture was done, you will be told if your treatment needs to be changed. If directed, you cancall to find out the results. If X-rays were done, you will be told if the results will affect your treatment. Call 911 Call 911 if any of the following occur: Trouble breathing Hard to wake up or confusion Fainting or loss of consciousness Rapid heart rate When to seek medical advice Call your healthcare provider right away if any of these occur: Fever of 100.4 F (38.0 C) or higher, or as directed by your healthcare provider Symptoms are not better by the third day of treatment Back or belly (abdominal) pain that gets worse Repeated vomiting, or unable to keep medicine down Weakness or dizziness Vaginal discharge Pain, redness, or swelling in the outer vaginal area (labia) 4516-[address] [employer] [place] [address], [place] [address]. All rights reserved. This information is not intended as a substitute for professional medical care. Always follow yourhealthcare professional's instructions. Follow Up Care 02/15/2022 17:21:40 With:WILL BRANNON MD Address: [address] [place] [id number]- When:2-[address] [facility] 09-20-2022 Note Discharge Instructions Thank you for allowing [facility] to assist you with your healthcare needs. The following is importantdischarge information regarding your hospital visit. Diagnosis from Today's Visit Flank pain What to Do Next Instructions from Your Care Team No qualifying data available. Post Acute Orders No qualifying data available. You Need to Schedule the Following Appointments Follow Up with WILL BRANNON MD When Within 2-4 days Where: [address] [place] [address] [id number]- Allergies Contrast dye Latex Mushrooms Peanuts Rocephin penicillin Medications Please ask your primary doctor or pharmacist before taking any other medication not listed, including over the counter drugs, herbal medications, vitamins and or supplements as they may interact withyour home medications. What How Much When Instructions Last Dose Unchanged busPIRone (busPIRone 15 mg oral tablet) 1 tab(s) by mouth Three (3) times a day Unchanged dicyclomine (dicyclomine 20 mg oral tablet) 1 tab(s) by mouth Four (4) times a day as needed for abdominal discomfort Duration: 7 Days Unchanged DULoxetine (Cymbalta 20 mg oral delayed release capsule) 1 cap by mouth Once a day Unchanged gabapentin (gabapentin 300 mg oral capsule) 1 cap by mouth Three (3) times a day Unchanged liraglutide (Victoza 18 mg/ 3 mL subcutaneous Pen) Unchanged lisinopril (lisinopril 2.5 mg oral tablet) 1 tab(s) by mouth Once a day Unchanged metFORMIN (metFORMIN 500 mg oral tablet) 1 tab(s) by mouth Two (2) times a day Unchanged naproxen (naproxen 500 mg oral tablet) Take 1 tablet by mouth every 12 hours as needed (pain/ inflammation, take with food.). Unchanged ondansetron (Zofran ODT 4 mg oral tablet, disintegrating) 1 tab(s) by mouth Three (3) times a day Duration: 3 Days Unchanged phenazopyridine (phenazopyridine 200 mg oral tablet) TAKE 1 TABLET EVERY 8 HOURS NEEDED FOR BLADDER spasms Unchanged propranolol (propranolol 10 mg oral tablet) 1 tab(s) by mouth Two (2) times a day Unchanged sulfamethoxazole-trimethoprim (sulfamethoxazole-trimethoprim 800 mg- 160 mg oral tablet) TAKE 1 TABLET BY MOUTH TWICE DAILY UNTIL GONE. Please take this list to your next doctor s visit. Bring all medications you take, including over the counter medications, herbals and other supplements with you to your doctor s visit. Patients and families are reminded to discard old lists and to update any records with all medication providers or retail pharmacies. Education Materials Bladder Infection, Female (Adult) Urine is normally doesn't have any bacteria in it. But bacteria can get into the urinary tract fromthe skin around the rectum. Or they can travel in the blood from elsewhere in the body. Once they are in your urinary tract, they can cause infection in the urethra (urethritis), the bladder (cystitis), or the kidneys (pyelonephritis). The most common place for an infection is in the bladder. This is called a bladder infection. This is one of the most common infections in women. Most bladder infections are easily treated. They are not serious unless the infection spreads to the kidney. The phrases bladder infection, UTI, and cystitis are often used to describe the same thing. But they are not always the same. Cystitis is an inflammation of the bladder. The most common cause of cystitis is an infection. Symptoms The infection causes inflammation in the urethra and bladder. This causes many of the symptoms. Themost common symptoms of a bladder infection are: Pain or burning when urinating Having to urinate more often than usual Urgent need to urinate Only a small amount of urine comes out Blood in urine Abdominal discomfort. This is usually in the lower abdomen above the pubic bone. Cloudy urine Strong- or bad-smelling urine Unable to urinate (urinary retention) Unable to hold urine in (urinary incontinence) Fever Loss of appetite Confusion (in older adults) Causes Bladder infections are not contagious. You can't get one from someone else, from a toilet seat, or from sharing a bath. The most common cause of bladder infections is bacteria from the bowels. The bacteria get onto the skin around the opening of the urethra. From there, they can get into the urine and travel up to thebladder, causing inflammation and infection. This usually happens because of: Wiping improperly after urinating. Always wipe from front to back. Bowel incontinence Procedures such as having a catheter inserted Older age Not emptying your bladder. This can allow bacteria a chance to grow in your urine. Dehydration Constipation Sex Use of a diaphragm for control Treatment Bladder infections are diagnosed by a urine test. They are treated with antibiotics and usually clear up quickly without complications. Treatment helps prevent a more serious kidney infection. Medicines Medicines can help in the treatment of a bladder infection: Take antibiotics until they are used up, even if you feel better. It is important to finish them tomake sure the infection has cleared. You can use acetaminophen or ibuprofen for pain, fever, or discomfort, unless another medicine was prescribed. If you have chronic liver or kidney disease, talk with your healthcare provider before using these medicines. Also talk with your provider if you've ever had a stomach ulcer or gastrointestinal bleeding, or are taking blood-thinner medicines. If you are given phenazopydridine to reduce burning with urination, it will cause your urine to become a bright orange color. This can stain clothing. Care and prevention These self-care steps can help prevent future infections: Drink plenty of fluids to prevent dehydration and flush out your bladder. Do this unless you must restrict fluids for other health reasons, or your doctor told you not to. Proper cleaning after going to the bathroom is important. Wipe from front to back after using the toilet to prevent the spread of bacteria. Urinate more often. Don't try to hold urine in for a long time. Wear loose-fitting clothes and cotton underwear. Avoid tight-fitting pants. Improve your diet and prevent constipation. Eat more fresh fruit and vegetables, and fiber, and less junk and fatty foods. Avoid sex until your symptoms are gone. Avoid caffeine, alcohol, and spicy foods. These can irritate your bladder. Urinate right after intercourse to flush out your bladder. If you use control pills and have frequent bladder infections, discuss it with your doctor. Follow-up care Call your healthcare provider if all symptoms are not gone after 3 days of treatment. This is especially important if you have repeat infections. If a culture was done, you will be told if your treatment needs to be changed. If directed, you cancall to find out the results. If X-rays were done, you will be told if the results will affect your treatment. Call 911 Call 911 if any of the following occur: Trouble breathing Hard to wake up or confusion Fainting or loss of consciousness Rapid heart rate When to seek medical advice Call your healthcare provider right away if any of these occur: Fever of 100.4 F (38.0 C) or higher, or as directed by your healthcare provider Symptoms are not better by the third day of treatment Back or belly (abdominal) pain that gets worse Repeated vomiting, or unable to keep medicine down Weakness or dizziness Vaginal discharge Pain, redness, or swelling in the outer vaginal area (labia) [id number] [employer]. [address] [place] [address]. All rights reserved. This information is not intended as a substitute for professional medical care. Always follow yourhealthcare professional's instructions. Additional Information VACCINATE! IT SAVES LIVES! Members of the community who have not yet received the COVID-19 vaccine and would like to receive it can visit one of [facility] vaccine clinics. There are many vaccine clinic locations within the [facility]. For locations and available times, please visit [email or web address]. It is important to note that some COVID mobile vaccine clinics are held outdoors and may be canceled in rainy orstormy conditions. To learn more about pediatric vaccinations (ages 5-11), we invite you to visit the [facility] webpage. [email or web address] learn more about the COVID-19 vaccine, we invite you to visit the [facility] website for a list of frequently asked questions. [email or web address] [facility] Access Instructions: Stay connected with your healthcare team and access your personal medical information anytime with the [email or web address] Patient Portal. If you would like a full copy of your medical records please contact the [facility] Medical Records Department Monday through Monday between 8a.m. and 4:30p.m. Please follow the directions below to access the portal: 1.Access the email account you provided upon registration to the [facility].2.Look for an invitation email from [facility].3.Open the email and access the invitation link: Accept Invitation to [facility].Fill in the required hartley to create your account. Sign into www.[employer] with your username and password that you created in the above steps to stay up to date. You can then view a summary of results, a summary of your visits, and the ability to download your summaries to your computer or send the information securely to a physician. Remember that your healthcare information is confidential, so carefully consider who you will allow to register on the [email or web address] Patient Portal for access to your information. You can also access the [facility] Patient Portal on the [employer] robert. Simply click on Health Records under [employer] and then click on the [employer] logo. HOW TO SAFELY DISPOSE OF PRESCRIPTION MEDICATIONS Please use one of the following methods to safely dispose of your unused medications. 1.Use a drug disposal kit: the drug disposal pouch allows you to safely discard your old and unuseddrugs. Ask your nurse to give you one when you are discharged.2.Visit a local take-back location: Many local pharmacies and police departments have programs that collect old and unwanted prescriptiondrugs. Call your local pharmacy or go to http://[employer]/0M2Ul5n to find one close to you.3.Make use of household items: Use cat litter or old coffee grounds to dispose medications if other options arenot available. Mix your drugs with these household products, seal them in an airtight container andthrow it into the garbage. Call [facility]: [phone] to be sure your drugs can be disposed of in this way. Some medicines may require a different approach.4.Never flush your medications down the toilet. IF YOU HAVE BEEN PRESCRIBED AN OPIOIDS FOR PAIN If you have been prescribed an opioid (such as hydrocodone, oxycodone or morphine), it is critical to understand the possible side effects and risks of opioid pain medications. Even when taken as directed, opioids can have several side effects including: Tolerance, meaning you might need to take more of a medication for the same pain relief. Nausea, vomiting and/or constipation. Sleepiness, dizziness, dry mouth, confusion, depression or itching. Physical dependence, meaning you have withdrawal symptoms when a medication is stopped ? this can develop within a few days. KNOW YOUR RESPONSIBILITIES It is important to know exactly how much and how often to take the opioid pain medications you are prescribed. Never take opioids in higher amounts or more often than prescribed. Do not combine opioids with alcohol or other drugs that cause drowsiness, such as benzodiazepines, also known as benzos,including diazepam and alprazolam, muscle relaxants or sleep aids. Never sell or share prescriptionopioids. This is illegal. Store opioids in a secure place and out of reach of others (including children, family, friends and visitors). The last page(s) of this document has been signed and retained as a CHART COPY Signatures Patient Education Materials Bladder Infection, Female (Adult) Medication Leaflets My discharge plan and instructions have been reviewed and explained to me and IUVALDO ANGELA Lunderstand my current condition and have read and understand these discharge instructions. I have received a written copy of the plan/instructions. If I have questions, I am aware that I should contact my doctor. 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 Multiplanar reformatted images are provided for review. Automated exposure control, iterative reconstruction, and/or weight based adjustment of the mA/kV was utilized to reduce the radiation dose to as low as reasonably achievable. COMPARISON: 12/27/2018. 11/27/2016. HISTORY: ORDERING SYSTEM PROVIDED HISTORY: Reason for Exam: Pain. Neurogenic bowel and bladder. History of spina bifida. Renal disease. FINDINGS: Unremarkable liver. The pancreas, spleen, and bilateral adrenal glands are unremarkable. There is lobulated appearance of the bilateral kidneys, left greater than right. The right kidney is somewhat atrophic. There is a probable right renal cyst. Nonobstructive intrarenal calculus is seen at the right lower pole. The urinary bladder wall is thickened, with tiny intraluminal air foci and a suprapubic catheter present. The upper GI tract is unremarkable. The visualized aorta is nonaneurysmal. There is a hernia repair. There is no evidence of bowel obstruction. There is a colostomy of the left hemiabdomen. There is mild diverticulosis. There is an umbilical hernia which contains an air-filled appendix without adjacent inflammatory changes. Of note, there appears to be a tiny foci of subcutaneous air at this umbilical hernia. Addition, there is evidence of prior hernia repair of the anterior abdominal wall. No pathologically enlarged retroperitoneal, mesenteric, or pelvic lymph nodes are identified. There is no free intraperitoneal air or fluid. The uterus is within normal limits. There are postsurgical changes in the pelvis. No acute osseous lesions identified. There is absence of the L3-S1 dorsal elements with adjacent soft tissue scarring, similar to prior examination. Chronic T8 vertebral body deformity is again noted. Provided images of the lower thorax are noncontributory. IMPRESSION: Urinary bladder wall thickening, with tiny air foci and suprapubic catheter present. Correlate with urinalysis. Tiny focus of superficial subcutaneous air is seen at the umbilical hernia. Correlate with physical examination or any relevant history. Of note, the appendix appears to be within this hernia. Diverticulosis without CT evidence of diverticulitis. Additional findings as above. I have reviewed this report and agree with the resident findings and interpretation. Interpreted by: Lacho Holloway MD Preliminary Report By: Elizabeth Abraham Electronically signed By Lacho Holloway MD Dictated Date: 02/15/2022 8:00:30 PM Prelim Date: 02/15/2022 8:17:23 PM Sign Date: 02/15/2022 9:23:10 PM Ordering Provider: ELIZABETH GARAY [facility]09-20-2022 Note ORIGINAL EXAMINATION: CT OF THE ABDOMEN AND PELVIS WITH CONTRAST02/15/2022 7:47 pm TECHNIQUE: CT of the abdomen and pelvis was performed with the administration of intravenous contrast. Multiplanar reformatted images are provided for review. Automated exposure control, iterative reconstruction, and/or weight based adjustment of the mA/kV was utilized to reduce the radiation dose to as low as reasonably achievable. COMPARISON: 12/27/2018. 11/27/2016. HISTORY: ORDERING SYSTEM PROVIDED HISTORY: Reason for Exam: Pain. Neurogenic bowel and bladder. History of spina bifida. Renal disease. FINDINGS: Unremarkable liver. The pancreas, spleen, and bilateral adrenal glands are unremarkable. There is lobulated appearance of the bilateral kidneys, left greater than right. The right kidney is somewhat atrophic. There is a probable right renal cyst. Nonobstructive intrarenal calculus is seen at the right lower pole. The urinary bladder wall is thickened, with tiny intraluminal air foci and a suprapubic catheter present. The upper GI tract is unremarkable. The visualized aorta is nonaneurysmal. There is a hernia repair. There is no evidence of bowel obstruction. There is a colostomy of the left hemiabdomen. There is mild diverticulosis. There is an umbilical hernia which contains an air-filled appendix without adjacent inflammatory changes. Of note, there appears to be a tiny foci of subcutaneous air at this umbilical hernia. Addition, there is evidence of prior hernia repair of the anterior abdominal wall. No pathologically enlarged retroperitoneal, mesenteric, or pelvic lymph nodes are identified. There is no free intraperitoneal air or fluid. The uterus is within normal limits. There are postsurgical changes in the pelvis. No acute osseous lesions identified. There is absence of the L3-S1 dorsal elements with adjacent soft tissue scarring, similar to prior examination. Chronic T8 vertebral body deformity is again noted. Provided images of the lower thorax are noncontributory. IMPRESSION: Urinary bladder wall thickening, with tiny air foci and suprapubic catheter present. Correlate with urinalysis. Tiny focus of superficial subcutaneous air is seen at the umbilical hernia. Correlate with physical examination or any relevant history. Of note, the appendix appears to be within this hernia. Diverticulosis without CT evidence of diverticulitis. Additional findings as above. I have reviewed this report and agree with the resident findings and interpretation. Interpreted by: Lacho Holloway MD Preliminary Report By: Elizabeth Abraham Electronically signed By Lacho Holloway MD Dictated Date: 02/15/2022 8:00:30 PM Prelim Date: 02/15/2022 8:17:23 PM Sign Date: 02/15/2022 9:23:10 PM Ordering Provider: [address]20-2022 Note ORIGINAL HISTORY: Back pain COMPARISON: No FINDINGS: There is an apparent calcified nodule in the peripheral right lung. Cardiac silhouette is within normal size limits. The pulmonary vasculature is unremarkable in appearance. IMPRESSION: Right nodule, likely calcified. Otherwise clear lungs. PA and lateral films or CT should be considered. Interpreted by: Lacho Holloway MD Preliminary Report By: Lacho Holloway MD Electronically signed By Lacho Holloway MD Dictated Date: 02/15/2022 6:45:20 PM Prelim Date: 02/15/2022 6:47:00 PM Sign Date: 02/15/2022 6:47:00 PM Ordering Provider: [address]20-2022 Note ORIGINAL HISTORY: Back pain COMPARISON: No FINDINGS: There is an apparent calcified nodule in the peripheral right lung. Cardiac silhouette is within normal size limits. The pulmonary vasculature is unremarkable in appearance. IMPRESSION: Right nodule, likely calcified. Otherwise clear lungs. PA and lateral films or CT should be considered. Interpreted by: Lacho Holloway MD Preliminary Report By: Lacho Holloway MD Electronically signed By Lacho Holloway MD Dictated Date: 02/15/2022 6:45:20 PM Prelim Date: 02/15/2022 6:47:00 PM Sign Date: 02/15/2022 6:47:00 PM Ordering Provider: ELIZABETH [facility]09-20-2022 Evaluation + Plan note Diagnostic Tests Pending * Urine Culture 02/15/[address] [facility] 09-20-2022 Miscellaneous Notes* Telephone Encounter - Denae Monk MA - 02/15/2022 10:09 AM EDT Patient notified and voiced understanding. Please schedule patient for general surgery consult. Denae Monk MA * Telephone Encounter - Netta Higgins PA-C - 02/15/2022 8:57 AM EDT Let patient know that US still shows that large nodule and overall it appears stable. However giventhe size, I do want her to see surgery about it. Netta Higgins PA-C [facility] History of Present illness Narrative* RT Toshia(R) - 02/14/2022 4:00 PM EDT Radiology Service Progress Note PATIENT NAME: Debby Bailon DATE OF SERVICE: February 14, 2022 TIME: 4:13 PM PATIENT IDENTITY VERIFICATION COMPLETED USING TWO (2) IDENTIFIERS: Name and Date of confirmedby patient verbally. FALL SCREENING: Has the patient had 2 falls in the last year or 1 fall with injury or currently using an Ambulatory Assistive Device (Walker, Cane, Wheelchair, Crutches, etc.)? No PATIENT GENDER DATA: Female. status: : No status: NO. PATIENT RELEVANT IMPLANT DATA REVIEWED: Not Applicable RADIOLOGY DEPARTMENT: Ultrasound PERIPHERAL IV DATA: Not applicable SIGNED BY: RT Toshia(R) February 14, 2022 4:13 PM documented in this encounter[facility] Miscellaneous Notes* Telephone Encounter - Josesito Verdin LPN - 02/10/2022 12:12 PM EDT Pt notified of same. Josesito Verdin LPN * Telephone Encounter - Netta Higgins PA-C - 02/10/2022 12:02 PM EDT Let patient know that labs and urine appear stable. Thanks. Netta Higgins PA-C documented in [facility] encounter[facility] History of Present illness Narrative* Netta Higgins PA-C - 02/09/2022 12:33 PM EDT Chief Complaint Patient presents with: Recheck HPI Debby Bailon is a 41 year old female who presents here today for Chronic Medical Conditions.. Patient with complex hx of uncontrolled DM, hyperlipidemia, HTN, abdifatah leg edema, Dysthmia, panic attacks, spina bifida, thyroid cyst, periferal neuropathy, migraines, obesity, neurogenic bowel and bladder, indwelling suprapubic cath, leg edema, chronic pain She has had recent visit with endocrinology. Her a1c was 8.2%. Patient has had tooth pain for the past 2 days. States she chipped a tooth and is now noticing pain. Recently in hospital for increased pain at site of foot ulcer. Does have her follow ups scheduled. She states she hasn't seen Dr. Martinez for a while but hasn't had as much pain. Past medical history, appointments, medications, allergies reviewed. Previous Medical History PAST MEDICAL HISTORY Diagnosis Date Anxiety Arthritis started age 19 Bilateral leg edema 07/16/2018 Cervical radiculopathy 05/02/2013 Chronic pain 02/12/2015 Cyst of ovary 11/28/2011 Diabetic eye exam (HCC) 06/17/2016 Last done: 01/25/2017 Diabetic eye exam (HCC) 06/17/2016 Last done: 03/08/2019 DJD (degenerative joint disease), thoracic DM (diabetes mellitus), secondary, uncontrolled, w/renal complications 12/05/2017 Dysthymic disorder Depression (non-psychotic), sees [facility]. Elevated LFTs 03/11/2020 Essential hypertension 02/21/2019 Fatty liver 03/11/2020 US 10/2019 History of kidney stones 01/04/2016 History of recurrent UTIs 11/28/2011 Hydronephrosis, right 01/04/2016 Lipomeningocele, sacral level 09/12/2013 Lumbago 02/12/2015 Medicare annual wellness visit, subsequent 02/28/2018 last done: 02/28/2018 Migraine without aura and without status migrainosus, not intractable 10/18/2016 Miscarriage Mixed hyperlipidemia 02/28/2018 Morbid obesity (HCC) 02/12/2015 Muscle weakness of left lower extremity 08/07/2013 Neck pain 05/02/2013 Neurogenic bladder 02/12/2015 Neurogenic bowel 01/06/2016 Neuropathy 02/12/2015 post back surgery with secondary infection. Seeing Dr. Gregg Numbness and tingling of left arm and leg 08/07/2013 Obesity, Class III, BMI >= 40 08/23/2018 Panic attacks Paroxysmal SVT (supraventricular tachycardia) (HCC) 07/03/2017 Per 48 Hr event monitor 06/30/2017 Primary insomnia 02/17/2016 S/P hernia repair 12/11/2017 Spina bifida (HCC) 01/06/2016 Suprapubic catheter (HCC) Thyroid cyst 01/01/2018 Complex right sided cysts. US 12/2017, biopsy per Dr. Josue 01/23/2018 benign. Repeat US in a year. 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 nl AMPUTATION TOE,MT-P JT Left 02/11/2020 left big toe CATH, SUPRAPUBIC/CYSTOSCOPIC 11/07/2018 CYSTOSCOPY,REMV CALCULUS,COMPLIC 11/10/2020 DILATION & CURETTAGE DX&/THER NONOBSTETRIC Dilation & curettage HERNIA REPAIR W/MESH 2018 LEXISCAN STRESS TEST 07/20/2018 negative NUCLEAR STRESS LEXISCAN (CARD) 10/24/2018 negative PAST SURGICAL HISTORY OF 2011 cholecystectomy PAST SURGICAL HISTORY OF 09/2012 back surgery x2 PAST SURGICAL HISTORY OF Left & 02/2014 foot x2 PAST SURGICAL HISTORY OF 07/2015 Bowles stoma PAST SURGICAL HISTORY OF 09/30/2021 Laparoscopic end colostomy REPAIR UMBILICAL HERNIA 12/11/2017 STRESS ECHO 12/09/2019 Negative STRESS TEST 07/18/2017 normal STRESS TEST 03/15/2018 negative Family History FAMILY HISTORY Problem Relation Age of Onset Cancer Father Skin Arthritis Mother Diabetes Mother Heart Mother Hypertension Mother Lipids Mother Stroke Mother Thyroid Mother Cancer Maternal Grandmother LIVER CANCER Cancer Maternal Uncle Great Uncle Cancer Maternal Uncle Great Uncle Anesthesia Problems No Family History Patient Allergies ALLERGIES Allergen Reactions Ceftriaxone Anaphylaxis Had skin testing on 12/09 at allergy office which was positive. Also had prior anaphylactic reactionon 09/30/2021. Patient should avoid ceftriaxone and all other cephalosporins. She has tolerated amoxicillin outpatient in the past. Mushroom Anaphylaxis Peanuts Anaphylaxis Latex Rash Cephalosporins Anaphylaxis Patient had anaphylaxis pre-op on 09/30 when this was given with other induction agents. Patient hadskin testing on 12/09/21 which was positive to ceftriaxone (see separate note from same day). Pleaseavoid all cephalosporins. Gabapentin Mental Status Change Patient reports having cognitive/memory issues after taking Peanut Anaphylaxis Mri Contrast [Gadol* GI Upset Current Medications Current Outpatient Medications on File Prior to Visit Medication Sig busPIRone (BUSPAR) 15 mg tablet Take 15 mg by mouth. insulin lispro (HUMALOG KWIKPEN) 100 unit/mL Inject subcutaneously. phenazopyridine (PYRIDIUM, GERIDIUM) 200 mg tablet TWICE DAILY NEEDED acetaminophen (TYLENOL) 500 mg tablet Take 650 mg by mouth. magnesium hydroxide (MOM) 400 mg/5 mL suspension Take 30 mL by mouth every 6 hours. (Patient takingdifferently: Take 30 mL by mouth every 6 hours. Takes every six hours as needed) insulin glargine (LANTUS SOLOSTAR U-100 INSULIN) 100 unit/mL (3 mL) Inject 33 Units subcutaneously daily at bedtime. E11.65 insulin aspart, niacinamide, (FIASP FLEXTOUCH U-100 INSULIN) 100 unit/mL (3 mL) pen Inject 18 Unitssubcutaneously three times daily before meals. (Includes SS # 2 QAC -> Per Endo, Dr. Monson) MAX TDD = 55 UNITS / DAY. E11.65 glimepiride (AMARYL) 2 mg tablet Take 1 tablet by mouth twice daily with meals. Per Endo: Dr. Monson lisinopril (ZESTRIL, PRINIVIL) 5 mg tablet Take 1 tablet by mouth once daily. Per Endo, Dr. Monson loratadine (CLARITIN) 10 mg tablet Take 1 tablet by mouth once daily. atorvastatin (LIPITOR) 80 mg tablet Take 1 tablet by mouth once daily. furosemide (LASIX) 40 mg tablet Take 1 tablet by mouth once daily. Take in morning oxybutynin ER (DITROPAN XL) 15 mg 24 hr Extended Rel Tab Take 1 tablet by mouth once daily. propranolol (INDERAL) 20 mg tablet Take 1 tablet by mouth twice daily. traZODone (DESYREL) 100 mg tablet Take 1 tablet by mouth daily at bedtime. furosemide (LASIX) 20 mg tablet Take 20 mg by mouth daily at bedtime. sodium chloride irrig solution (NACL 0.9% IRRIGATION BOTTLE) To use for catheter irrigation daily or as needed. Insulin [place], Disposable, (COMFORT EZ PEN NEEDLES) 29 gauge x 1/2 One needle with each lantus shot once a day. Dx: E13.29 on insulin PSEUDOEPHEDRINE HCL ORAL Take 30 mg by mouth as needed. ondansetron orally disintegrating (ZOFRAN ODT) 8 mg disintegrating tablet 8 mg as needed. fluticasone (FLONASE) 50 mcg/actuation nasal spray Use 2 Sprays in each nostril once daily. Rinse mouth after use. Insulin [place], Disposable, 32 gauge x 5/16 ndle Use once daily with Victoza COMPOUNDED PRESCRIPTION Stoma catheter tube. DX: Qo5.4 and K59.2 DULoxetine (CYMBALTA) 20 mg capsule Take 20 mg by mouth. (Patient not taking: Reported on 02/09/2022) amoxicillin-clavulanic acid (AUGMENTIN) 875-125 mg per tablet Take 1 tablet by mouth twice daily. (Patient not taking: Reported on 02/09/2022) psyllium husk (METAMUCIL ORAL) Take by mouth as needed. (Patient not taking: Reported on 02/09/2022) acetaminophen (TYLENOL) 325 mg tablet 325 mg as needed. (Patient not taking: Reported on 02/09/2022) Blood-Glucose Meter (ACCU-CHEK HOPE) [facility] Dispense 1 meter kit. Dx: Other DM Code E13.29 (Patient not taking: Reported on 02/09/2022) Lancets (ACCU-CHEK FASTCLIX) lancets Test blood sugar 2 times/day. Dx: Other DM Code E13.29 InsulinUse: No (Patient taking differently: Test blood sugar 2 times/day. Dx: Other DM Code E13.29 InsulinUse: No) blood sugar diagnostic (ACCU-CHEK SMARTVIEW TEST STRIP) test strip Test blood sugar(s) 2 times daily. Dx: Other DM Code E13.29 Insulin: No (Patient not taking: Reported on 02/09/2022) No current facility-administered medications on file prior to visit. Social History Social History Tobacco Use Smoking status: Never Smokeless tobacco: Never Vaping Use Vaping Use: Never used Substance Use Topics Alcohol use: Not Currently Comment: social Drug use: Never Review of Symptoms REVIEW OF SYSTEMS GENERAL: No weight loss, malaise or fevers HEENT: SEE HPI NECK: Negative for lumps, goiter, pain and significant neck swelling RESPIRATORY: Negative for cough, hemoptysis, wheezing, COPD, dyspnea or shortness of breath CARDIOVASCULAR: Negative for chest pain, leg swelling, hypertension, CHF or palpitations NEURO: No history of worsening headaches, syncope, paralysis, seizures or tremors EXAM: BP 102/72 (BP Site: Left Arm, BP Position: Sitting, BP Cuff Size: Large Adult) Pulse 72 Temp 36.4 C (97.5 F) Resp 18 Wt 92.1 kg (203 lb) LMP 11/24/2021 (Exact Date) BMI 38.36 kg/m General Appearance: Well appearing, alert, in no acute distress, well-hydrated, well nourished.. Oropharynx: poor dentition. Chipped tooth with erythematous gum line. tender Neck: Supple, no adenopathy; thyroid symmetric, normal size, no bruits. Lungs: Lungs clear to auscultation. No wheezing, rhonchi, rales.. Heart: RRR without murmur, gallop, or rubs. No ectopy. Extremities: No deformities, edema, skin discoloration, clubbing or cyanosis. Good capillary refill. . Peripheral Pulses: Normal. Health Maintenance List HEPATITIS B(1 of 3 - 3-dose series) Never done HBA1C due on 10/29/2021 INFLUENZA(1) due on 01/27/2022 PAP TESTING due on 07/28/2022 HPV TESTING due on 07/28/2022 COVID-19 VACCINE(1) due on 07/28/2022 DILATED RETINAL EXAM due on 07/07/2022 ANNUAL PCP TEAM CHRONIC DISEASE VISIT due on 07/28/2022 LDL CHOLESTEROL due on 07/29/2022 BP CONTROLLED (<130/80) due on 12/09/2022 MAMMOGRAM due on 01/12/2023 DTAP,TDAP,TD(3 - Td or Tdap) due on 03/23/2031 PNEUMOCOCCAL(3 - PPSV23 or PCV20) due on 2046 HEPATITIS C SCREENING Completed HIV SCREENING Completed URINE ALBUMIN:CREATININE RATIO Discontinued DIABETIC FOOT EXAM Discontinued Data reviewed ASSESSMENT/PLAN: 1. 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) - ICD9: 250.40, 791.0, ICD10: E11.29, R80.9 (primary diagnosis) Continue with endo - LIPID PANEL, NONFASTING - BASIC METABOLIC PNL - URINALYSIS, WITH MICROSCOPIC 2. 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) - ICD9: 250.40, 791.0, ICD10: E11.29, R80.9 Continue wit endo - LIPID PANEL, NONFASTING - BASIC METABOLIC PNL - URINALYSIS, WITH MICROSCOPIC 3. Essential hypertension - ICD9: 401.9, ICD10: I10 - good control - Recommended regular aerobic exercise. - Recommend home blood pressure monitoring, to bring results in on next visit - Goal of BP <130/80 - BASIC METABOLIC PNL - URINALYSIS, WITH MICROSCOPIC 4. Mixed hyperlipidemia - ICD9: 272.2, ICD10: E78.2 - to be determined upon return of lab results - Encouraged following a low carbohydrate, healthy oil intake diet. - Continue current therapy. - LIPID PANEL, NONFASTING - BASIC METABOLIC PNL 5. Thyroid cyst - ICD9: 246.2, ICD10: E04.1 - US THYROID/PARATHYROID 6. Dysthymic disorder - ICD9: 300.4, ICD10: F34.1 stable 7. Anxiety and depression - ICD9: 300.00, 311, ICD10: F41.9, F32.A stable 8. Morbid obesity with BMI of 40.0-44.9, adult (HCC) - ICD9: 278.01, V85.41, ICD10: E66.01, Z68.41 Stable - Behavioral intervention 9. Paroxysmal SVT (supraventricular tachycardia) (HCC) - ICD9: 427.0, ICD10: I47.1 10. Spina bifida, unspecified hydrocephalus presence, unspecified spinal region (HCC) - ICD9: 741.90, ICD10: Q05.9 11. Neuropathy - ICD9: 355.9, ICD10: G62.9 Follow up routine in 6 months. Netta Higgins PA-C documented in this encounterOur [facility]09-13-[facility]22 History of Present illness Narrative* Naty Haddad LPN - 02/08/2022 1:28 PM EDT CC Supra pubic catheter in Place HPI: Debby Bailon is a 41 year old female. The patient is here now for a supra pubic catheter change. Procedure: Performed a catheter change. Removed fluid from balloon in the cook. The supra pubic cook size 18 Fr silicone was removed withcatheter tip intact without difficulty. Inserted 18 Fr catheter using aseptic technique. No urine return. Bulb infalted with 10 mLs prefilled syringe. Irrigated supra pubic catheter with 60 mL 0.9% sodium chloride without difficulties. Approximately 60 mLs pale yellow urine return noted. Catheter secured with T-Sponge and tape per patients preference with drain bag. Patient requested extra leg bag to take with her and provided. The patient tolerated the procedure well. Assessment/Plan: Successful catheter change. Return for catheter changes as planned. Cory Box, HIRALS, HENRIK, [place] as needed. Naty Haddad LPN documented in this encounterOur Lady Of Mercy Hospital08-17-2022 Miscellaneous Notes* Letter - Mammography Coordinator - 01/12/2022 5:42 PM EDT January 12, 2022 PID: [id number] Debby Bailon [address] [address] Dear Ms. Bailon, We are pleased to inform you that the results of your recent breast imaging exam on 01/12/2022 are normal. Your mammogram demonstrates that you have dense breast tissue, which could hide abnormalities. Dense breast tissue, in and of itself, is a relatively common condition. Therefore, this information is not provided to cause undue concern; rather, it is to raise your awareness and promote discussion with your health care provider regarding the presence of dense breast tissue in addition to other riskfactors. Early detection of cancer is very important. We also understand recommendations regarding breast cancer screening are controversial. Please discuss with your primary care provider which strategy is best for you and whether a mammogram is right for you. Your imaging studies and report will be kept on [facility] as part of your permanent medical record and are available for your continuing care. Thank you for allowing us to help in meeting your health care needs. Sincerely, Dr. Martinez Interpreting Radiologist [facility] (Normal over 40) documented in this encounterOur Lady Of Mercy Hospital08-17-2022 History of Present illness Narrative* Mariaelena Coffman - 01/12/2022 4:00 PM EDT Radiology Service Progress Note PATIENT NAME: Debby Bailon DATE OF SERVICE: January 12, 2022 TIME: 4:12 PM PATIENT IDENTITY VERIFICATION COMPLETED USING TWO (2) IDENTIFIERS: Name and Date of confirmedby patient verbally. FALL SCREENING: Has the patient had 2 falls in the last year or 1 fall with injury or currently using an Ambulatory Assistive Device (Walker, Cane, Wheelchair, Crutches, etc.)? No PATIENT GENDER DATA: Female. status: : No status: NO. PATIENT RELEVANT IMPLANT DATA REVIEWED: Not Applicable RADIOLOGY DEPARTMENT: Mammography PERIPHERAL IV DATA: Not applicable SIGNED BY: Mariaelena Coffman January 12, 2022 4:12 PM documented in this encounterOur Lady Of Mercy [facility]08-05-2022 History of Present illness Narrative* Naty Haddad LPN - 12/31/2021 3:38 PM EDT CC Supra pubic catheter in Place HPI: Debby Bailon is a 41 year old female. The patient is here now for a supra pubic catheter change. Procedure: Performed a catheter change. Removed fluid from balloon in the cook. The supra pubic cook size 18 Fr silicone was removed withcatheter tip intact without difficulty. Inserted 18 Fr catheter using aseptic technique. No urine return. Irrigated supra pubic catheter with 60 mL 0.9% sodium chloride without difficulties. Approximately 60 mLs light pale yellow urine return noted. Bulb infalted with 10 mLs prefilled syringe. Catheter secured with T-Sponge and tape per patients preference with drain bag. The patient tolerated the procedure well. Assessment/Plan: Successful catheter change. Return for catheter changes as planned. Cory Box, JENIFFER, [place], PA-C as needed. Naty Haddad LPN documented in this encounterOur Lady Of Mercy [facility]07-14-2022 History of Present illness Narrative* Coreen Huerta RN - 12/09/2021 10:34 AM EDT Misc/PERCUTANEOUS & ID SKIN TESTING Wheal and Flare Diameter (mm) Patient has been identified by name and date of : Yes . Skin test applied by : Coreen Huerta RN Interpreted By: Jodee Burroughs M.D. Medications obtained from [facility]. * Clinical significant reactions are regarded as a wheal diameter greater than or equal to 3 mm with a flare diameter greater or equal to 6mm. Time applied: 1026 Time read: 1041 Negative control: 50% GLYCERIN/50% cocas ALLERGENS: EPICUTANEOUS 1. Negative control: 50% Glycerin/50% cocas P: W = 0 mm F = 0 mm 2. Ceftriaxone 100mg/mL [id number] Exp:12/10/21 P: W = 0 mm F = 0 mm 3. Fentanyl 50mcg/mL Lot:[id number] Exp:12/10/2021 P: W = 0 mm F = 0 mm 4. Liodcaine 10mg/mL: Lot:[id number] Exp:12/10/2021 P: W = 0 mm F = 0 mm 5. Midazolam 5mg/mL: [id number] Exp:12/10/2021 P: W = 0 mm F = 0 mm 6. Propofol 10mg/mL: Lot:[id number] Exp:12/10/2021 P: W = 0 mm F = 0 mm 7. Rocuronium 10mg/mL: [id number] Exp:12/10/2021 P: W = 0 mm F = 0 mm 8. HISTAMINE: Positive control Histamine base 6mg/ml P: W = 5 mm F = 30 mm Time applied: 1050 Time read: 1105 ALLERGENS: INTRADERMAL 1. Negative control: 50% Glycerin/50% cocas ID: W = 0 mm F = 0 mm 2. Ceftriaxone 1mg/mL ID: W = 5 mm F = 25 mm 3. Fentanyl 5mcg/mL ID: W = 0 mm F = 0 mm 4. Lidocaine 1mg/mL ID: W = 0 mm F = 0 mm 5. Midazolam 0.5mg/mL ID: W = 0 mm F = 0 mm 6. Propofol 1mg/mL ID: W = 0 mm F = 0 mm 7. Rocuronium 0.05mg/mL ID: W = 0 mm F = 0 mm 8. HISTAMINE: Positive control Histamine base 0.1mg/ml ID: W = 10 mm F = 30 mm Unable to perform 2nd round of intradermals due to positive intradermal ceftriaxone 1mg/mL Time applied: 1026 Time read: 1041 ALLERGENS 1. Low Ammoniatex Latex P: W = 0 mm F = 0 mm 2. Solid Latex - glove P: W = 0 mm F = 0 mm Controlled substances wasted with [employer] properly. Yellow controlled substance waste [facility]st[facility]. Hydrocortisone 2.5 % cream applied to positive skin test reactions per doctor's order. Patient instructed regarding inhalant allergen avoidance measures; written information given. Patient seen by Dr. Burroughs prior to leaving. Coreen Huerta RN * Too Parker MD - 12/09/2021 9:30 AM EDT This is a hospital follow up visit regarding a consult from the hospital for anaphylactic reaction to pre-operative medications. Final recommendations will be communicated back to the requesting provider via shared medical record. Per the original Allergy/immunology consultation Ms. Bailon is a 40 year old female with history of pelvic floor dysfunction who presented to hospital on 09/30/2021 for surgical intervention and admitted for suspected anaphylactic reaction. Patient intubated and unable to provide history. Attempted to reach out to patient but unable to reach by phone. History provided by physician to physician handoff and EMR records. Allergy team consulted due to suspected anaphylactic reaction for patient. Per EMR records from anesthesia and colorectal surgery, patient was intubated by anesthesia and after the ceftriaxone was given the patient became tachycardic, hypotensive and hypoxic and the team suspected that the patient was having anaphylaxis. Patient had bilateral breath sounds, and epinephrine was started as a drip, and Benadryl and hydrocortisone was given. The operation was never started and postponed. Per the records, there was no mention of a rash. The patient was handed off to the MICU there was no mention of a rash. Anesthesia start time was at 11:12 AM and stop time was 12:56 noon. Patient had received mi dazolam at 11:24am, fentanyl, propofol, and lidocaine at 11:25am, rocuronium at 11:26am, with MAP dropping to 55 at 11:29 am and recovery to MAP 94 at 11:31 am, then ceftriaxone given at 11:33 AM with MAP drop to 65 at 11:34am. Patient subsequently received epinephrine, benadryl, and hydrocortisonefor treatment and transferred to ICU. Tryptase was ordered and drawn at 2:08 PM. Patient has no known previous allergies to penicillin or cephalosporins. She presents today to the office for skin prick testing to the pre-operative medications given. Patient states she has taken amoxicillin in the past without any adverse or allergic reaction. She states she has had Rocephin IV in the past and has caused some urticaria, but has never caused overt anaphylaxis. She has had multiple surgeries in the past requiring intubation and denies any previous anaphylaxis during these events. She admits to seasonal allergic rhinitis, and believes she has allergies to cats. During these episodes she will take With cats, she has rhinitis and watering of her eyes with itching. She also endorses reaction to peanuts and mushrooms that causes throat closing up. She also states that MRI contrast makes her sick, but denies any allergic reaction to this. Collateral Allergic History: Allergic rhinitis: Endorses seasonal allergic rhinitis. Asthma: Denied Eczema: Denied Sinusitis: Denied Nasal polyps: Denied Urticaria: Denied Angioedema: Denied Food Allergy: Denied Drug allergies: Denied Latex allergy: Admits to latex allergy. Cook catheter suprapubic. Hives around the area. Stinging insect allergy: Denied Current Outpatient Medications on File Prior to Visit Medication Sig amoxicillin-clavulanic acid (AUGMENTIN) 875-125 mg per tablet Take 1 tablet by mouth twice daily. magnesium hydroxide (MOM) 400 mg/5 mL suspension Take 30 mL by mouth every 6 hours. (Patient takingdifferently: Take 30 mL by mouth every 6 hours. Takes every six hours as needed ) insulin glargine (LANTUS SOLOSTAR U-100 INSULIN) 100 unit/mL (3 mL) Inject 33 Units subcutaneously daily at bedtime. E11.65 insulin aspart, niacinamide, (FIASP FLEXTOUCH U-100 INSULIN) 100 unit/mL (3 mL) pen Inject 18 Unitssubcutaneously three times daily before meals. (Includes SS # 2 QAC -> Per Umm, Dr. Monson) MAX TDD = 55 UNITS / DAY. E11.65 glimepiride (AMARYL) 2 mg tablet Take 1 tablet by mouth twice daily with meals. Per Umm: Dr. Monson lisinopril (ZESTRIL, PRINIVIL) 5 mg tablet Take 1 tablet by mouth once daily. Per Dr. Ermias Salomon loratadine (CLARITIN) 10 mg tablet Take 1 tablet by mouth once daily. atorvastatin (LIPITOR) 80 mg tablet Take 1 tablet by mouth once daily. furosemide (LASIX) 40 mg tablet Take 1 tablet by mouth once daily. Take in morning oxybutynin ER (DITROPAN XL) 15 mg 24 hr Extended Rel Tab Take 1 tablet by mouth once daily. propranolol (INDERAL) 20 mg tablet Take 1 tablet by mouth twice daily. traZODone (DESYREL) 100 mg tablet Take 1 tablet by mouth daily at bedtime. furosemide (LASIX) 20 mg tablet Take 20 mg by mouth daily at bedtime. sodium chloride irrig solution (NACL 0.9% IRRIGATION BOTTLE) To use for catheter irrigation daily or as needed. Insulin [place], Disposable, (COMFORT EZ PEN NEEDLES) 29 gauge x 1/2 One needle with each lantus shot once a day. Dx: E13.29 on insulin psyllium husk (METAMUCIL ORAL) Take by mouth as needed. (Patient not taking: Reported on 12/03/2021 ) PSEUDOEPHEDRINE HCL ORAL Take 30 mg by mouth as needed. ondansetron orally disintegrating (ZOFRAN ODT) 8 mg disintegrating tablet 8 mg as needed. acetaminophen (TYLENOL) 325 mg tablet 325 mg as needed. fluticasone (FLONASE) 50 mcg/actuation nasal spray Use 2 Sprays in each nostril once daily. Rinse mouth after use. Insulin [place], Disposable, 32 gauge x 5/16 ndle Use once daily with Victoza (Patient not taking:Reported on 12/03/2021 ) Blood-Glucose Meter (ACCU-CHEK HOPE) [facility] Dispense 1 meter kit. Dx: Other DM Code E13.29 (Patient not taking: Reported on 12/03/2021 ) Lancets (ACCU-CHEK FASTCLIX) lancets Test blood sugar 2 times/day. Dx: Other DM Code E13.29 InsulinUse: No (Patient not taking: Reported on 12/03/2021 ) blood sugar diagnostic (ACCU-CHEK SMARTVIEW TEST STRIP) test strip Test blood sugar(s) 2 times daily. Dx: Other DM Code E13.29 Insulin: No (Patient not taking: Reported on 12/03/2021 ) COMPOUNDED PRESCRIPTION Stoma catheter tube. DX: Qo5.4 and K59.2 No current facility-administered medications on file prior to visit. ALLERGIES Allergen Reactions Ceftriaxone Anaphylaxis Suspected intraop anaphylaxis. See allergy note on 09/30/2021 Mushroom Anaphylaxis Peanuts Anaphylaxis Latex Rash Fentanyl Other: See Comments Suspected intraop anaphylaxis. See allergy note on 09/30/2021 Gabapentin Mental Status Change Patient reports having cognitive/memory issues after taking Lidocaine Other: See Comments Suspected intraop anaphylaxis. See allergy note on 09/30/2021 Midazolam Other: See Comments Suspected intraop anaphylaxis. See allergy note on 09/30/2021 Propofol Other: See Comments Suspected intraop anaphylaxis. See allergy note on 09/30/2021 Rocuronium Other: See Comments Suspected intraop anaphylaxis. See allergy note on 09/30/2021 Mri Contrast [Gadol* GI Upset PAST MEDICAL HISTORY Diagnosis Date Anxiety Arthritis started age 19 Bilateral leg edema 07/16/2018 Cervical radiculopathy 05/02/2013 Chronic pain 02/12/2015 Cyst of ovary 11/28/2011 Diabetic eye exam (HCC) 06/17/2016 Last done: 01/25/2017 Diabetic eye exam (HCC) 06/17/2016 Last done: 03/08/2019 DJD (degenerative joint disease), thoracic DM (diabetes mellitus), secondary, uncontrolled, w/renal complications 12/05/2017 Dysthymic disorder Depression (non-psychotic), sees LE[facility] INSPECT[facility] at [facility]. Elevated LFTs 03/11/2020 Essential hypertension 02/21/2019 Fatty liver 03/11/2020 US 10/2019 History of kidney stones 01/04/2016 History of recurrent UTIs 11/28/2011 Hydronephrosis, right 01/04/2016 Lipomeningocele, sacral level 09/12/2013 Lumbago 02/12/2015 Medicare annual wellness visit, subsequent 02/28/2018 last done: 02/28/2018 Migraine without aura and without status migrainosus, not intractable 10/18/2016 Miscarriage Mixed hyperlipidemia 02/28/2018 Morbid obesity (HCC) 02/12/2015 Muscle weakness of left lower extremity 08/07/2013 Neck pain 05/02/2013 Neurogenic bladder 02/12/2015 Neurogenic bowel 01/06/2016 Neuropathy 02/12/2015 post back surgery with secondary infection. Seeing Dr. Gregg Numbness and tingling of left arm and leg 08/07/2013 Obesity, Class III, BMI >= 40 08/23/2018 Panic attacks Paroxysmal SVT (supraventricular tachycardia) (HCC) 07/03/2017 Per 48 Hr event monitor 06/30/2017 Primary insomnia 02/17/2016 S/P hernia repair 12/11/2017 Spina bifida (HCC) 01/06/2016 Suprapubic catheter (HCC) Thyroid cyst 01/01/2018 Complex right sided cysts. US 12/2017, biopsy per Dr. Josue 01/23/2018 benign. Repeat US in a year. 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) 10/18/2016 Type 2 diabetes mellitus with hyperglycemia, with long-term current use of insulin (HCC) 07/26/2021 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) 02/19/2016 Ulcer of left foot (HCC) 02/21/2017 Ventral hernia without obstruction or gangrene Weakness of both upper extremities 08/07/2013 Chronic PAST SURGICAL HISTORY Procedure Laterality Date 2D ECHO (EXEP) 06/28/2017 EF=65%. nl AMPUTATION TOE,MT-P JT Left 02/11/2020 left big toe CATH, SUPRAPUBIC/CYSTOSCOPIC 11/07/2018 CYSTOSCOPY,REMV CALCULUS,COMPLIC 11/10/2020 DILATION & CURETTAGE DX&/THER NONOBSTETRIC Dilation & curettage HERNIA REPAIR W/MESH 2018 LEXISCAN STRESS TEST 07/20/2018 negative NUCLEAR STRESS LEXISCAN (CARD) 10/24/2018 negative PAST SURGICAL HISTORY OF 2010 cholecystectomy PAST SURGICAL HISTORY OF 09/2012 back surgery x2 PAST SURGICAL HISTORY OF Left & 02/2014 foot x2 PAST SURGICAL HISTORY OF 07/2015 Bowles stoma PAST SURGICAL HISTORY OF 09/30/2021 Laparoscopic end colostomy REPAIR UMBILICAL HERNIA 12/11/2017 STRESS ECHO 12/09/2019 Negative STRESS TEST 07/18/2017 normal STRESS TEST 03/15/2018 negative FAMILY HISTORY Problem Relation Age of Onset Cancer Father Skin Arthritis Mother Diabetes Mother Heart Mother Hypertension Mother Lipids Mother Stroke Mother Thyroid Mother Cancer Maternal Grandmother LIVER CANCER Cancer Maternal Uncle Great Uncle Cancer Maternal Uncle Great Uncle Anesthesia Problems No Family History Review of Systems: Gen: No fevers, chills, night sweats. HEENT: No eye itching, watering. No congestion or rhinorrhea. No snoring. No recent sinus infections. Neck: No lymphadenopathy. Resp: No cough, wheezing, dyspnea. CV: No chest pain. GI: No reflux, vomiting. Musc/Skel: No joint or muscle pain. Neuro: No headaches. Skin: No lesions, rashes, hives, or eczema. Physical Exam: LMP 11/24/2021 (Exact Date) GEN - Wheelchair-bound female in NAD. HEENT - no conjunctival injection, swelling or discharge. Normal nasal mucosa, with no inflammationor discharge. MMM. Oropharynx non-erythematous with no tonsillar enlargement or exudates. NECK - supple, no cervical LAD RESP - No increased work of breathing. Good air entry, clear to auscultation bilaterally, no wheezeor crackles. CV- RRR, no murmurs ABD- Suprapubic catheter present. SKIN- Warm and well perfused, no rashes Diagnostic Testing: ALLERGENS: EPICUTANEOUS 1. Negative control: 50% Glycerin/50% cocas P: W = 0 mm F = 0 mm 2. Ceftriaxone 100mg/mL [id number] Exp:12/10/21 P: W = 0 mm F = 0 mm 3. Fentanyl 50mcg/mL Lot:[id number] Exp:12/10/2021 P: W = 0 mm F = 0 mm 4. Liodcaine 10mg/mL: [id number] Exp:12/10/2021 P: W = 0 mm F = 0 mm 5. Midazolam 5mg/mL: [id number] Exp:12/10/2021 P: W = 0 mm F = 0 mm 6. Propofol 10mg/mL: [id number] Exp:12/10/2021 P: W = 0 mm F = 0 mm 7. Rocuronium 10mg/mL: [id number] Exp:12/10/2021 P: W = 0 mm F = 0 mm 8. HISTAMINE: Positive control Histamine base 6mg/ml P: W = 5 mm F = 30 mm ALLERGENS: INTRADERMAL 1. Negative control: 50% Glycerin/50% cocas ID: W = 0 mm F = 0 mm 2. Ceftriaxone 1mg/mL ID: W = 5 mm F = 25 mm 3. Fentanyl 5mcg/mL ID: W = 0 mm F = 0 mm 4. Lidocaine 1mg/mL ID: W = 0 mm F = 0 mm 5. Midazolam 0.5mg/mL ID: W = 0 mm F = 0 mm 6. Propofol 1mg/mL ID: W = 0 mm F = 0 mm 7. Rocuronium 0.05mg/mL ID: W = 0 mm F = 0 mm 8. HISTAMINE: Positive control Histamine base 0.1mg/ml ID: W = 10 mm F = 30 mm Unable to perform 2nd round of intradermals due to positive intradermal ceftriaxone 1mg/mL ALLERGENS 1. Low Ammoniatex Latex P: W = 0 mm F = 0 mm 2. Solid Latex - glove P: W = 0 mm F = 0 mm Assessment/Plan: Debby Bailon is a 41 year old female with history of pelvic floor dysfunction who presented to hospital on 09/30/2021 and was noted to have anaphylactic reaction during pre-op administration of medications. 1. Anaphylaxis secondary to beta-lactam (ceftriaxone) 2. Adverse effect of cephalosporins and other beta-lactam antibiotics, initial encounter 3. Anaphylactic reaction to peanuts 4. Anaphylactic reaction to mushroom All of the medications administered at the time of pre-op were tested both via skin prick and intradermal during today's visit. Please see above results under diagnostic section for details about theskin testing results. She reacted only to ceftriaxone and none of the other agents, suggesting thatthis was the culprit leading to anaphylaxis. She additionally tested negative for latex. -We recommend avoiding ceftriaxone and all cephalosporins going forward. We have added cephalosporins to her drug allergy list in the chart to reflect this with details about the skin testing. -We have removed all other agents given during pre-op from her drug allergy list with reference to the skin testing performed on this day. -If there is concern regarding recurrent anaphylaxis from lidocaine, versed, propofol, rocuronium, or fentanyl going forward for any procedure or otherwise, we recommend giving 10% test dose followedand then after 30 minutes administering the remaining amount of the dose. -Will send antigen specific IgE for latex to help further rule out this allergy. Continue to avoid latex products in the meantime. -Continue to avoid peanut and mushroom. Thank you for allowing us to participate in the care of this patient. Please call with questions. Too Parker MD Allergy and Clinical Immunology Fellow Discussed with: Dr. Burroughs documented in this encounterOur [facility] Of [facility]07-08-2022 History of Present illness Narrative* Cory Box PA-C - 12/03/2021 3:25 PM EDT CC Supra pubic catheter in Place HPI: Debby Bailon is a 41 year old female. The patient is here now for a supra pubic catheter change. Procedure: Performed a catheter change. Removed fluid from balloon in the cook. The supra pubic cook size 18 Fr silicone was removed withcatheter tip intact without difficulty. Inserted 18 Fr catheter using aseptic technique. No urine return. Bulb infalted with 10 mLs prefilled syringe. Irrigated supra pubic catheter with 60 mL 0.9% sodium chloride without difficulties. Approximately 50 mLs pale yellow urine return noted. Catheter secured with T-Sponge and tape per patients preference with drain bag. The patient tolerated the procedure well. Assessment/Plan: Successful catheter change. Return for catheter changes as planned. oCry Box, H[place]ALS, [place], PA-C as needed. Naty Haddad LPN documented in this encounterOur Lady Of Mercy Hospital07-01-2022 Miscellaneous Notes* Telephone Encounter - Regina Colvin RN - 11/26/2021 10:08 AM EDT SPECIALTY CARE COORDINATION FOLLOW-UP NOTE Spoke to Debby. In a Scardst message from Debby she states: I have been having issues since MondayNovember 19 i had some small hard glen come out Monday then nothing until MondayNovember 23 when a little bit of runny stool came out i have had stool comeout my belly button i have been taking the milk of magnisa and miralx but nothing is working i had some milk of magnisa come out of my belly button on Monday i have not been able to eat or sleep i did finally try to eat this evening and i just felt sick to my stomach and in a lot of uncomfortable pain what do i think i should do Discussed with her nausea, not eating, and the drainage from her belly button that the Miralax and MOM should be stopped. She was encouraged her to go to any ER today particularly [facility] if possible but she was not sure if she could find a ride. I explained that whatever she decided that she needs to be seen today. She agreed and said she would go to the ER today. Signature Regina Colvin RN November 26, 2021 documented in this encounterOur Lady Of Mercy Hospital06-27-2022 History of Present illness Narrative* Nubia Mccullough LPN - 11/22/2021 3:18 PM EDT See DC summary for appt on Monday11/26/21. Scan on 11/22/2021 11:33 AM by External Provider: Discharge Summary Maria Luisa Mccullough LPN documented in this encounterOur Lady Of Mercy Hospital06-15-2022 Miscellaneous Notes* Telephone Encounter - Naty Haddad LPN - 11/10/2021 11:11 AM EDT Patient returned call. Verified name and date of . Discussed with patient having appointment with urologist. Per patient she would like appointment scheduled around same time as the one she has on December 03, 2021. Patient aware I will check schedule and let her know if appointment available around same time with provider and can do catheter change at same time. Naty Haddad LPN * Telephone Encounter - Naty Haddad LPN - 11/10/2021 9:25 AM EDT Called patient, no answer. Left message. MyChart message left for patient. Naty Haddad LPN * Telephone Encounter - Naty Haddad LPN - 11/08/2021 1:08 PM EDT Called patient, no answer. Left message. Message for patient when returns call: needs yearly appointment with urology physician since it hasbeen over a year. Naty Haddad LPN documented in this encounterOur [facility] History of Present illness Narrative* Kati Antoine RN - 10/27/2021 3:59 PM EDT ET/WOCN Nursing Consult Topic: ET/WOCN Consultation Note Outcome: Patient and spouse in A30 for post-op visit. Patient states she is getting discharged fromrehab tomorrow and her spouse will be caring for the pouch. Spouse states he has seen it done many times and feels confident in being able to care for the stoma. Pouching system refit for convexity this visit, demonstrated how to use new system. Also discussed closed pouches which patient is interested in. Order form updated and faxed to [employer], patient to call rep Kar[employer] tomorrow to set up account. Pouch change x4 provided. Next Scheduled Visit: as needed Assessment Stoma Type: End descending colostomy Diameter: 1 1/2 x 1 3/4 Location: LUQ Protrusion: Budded Mucosal condition and color: Red and moist Mucocutaneous junction Separation: narrow separation from 6-12 o'clock, filled with moist yellow slough Peristomal Skin: Other: narrow rim of erythema to separation. Small wound to outer area at 8 o'clock, about 1cm deep from prior lap site - wound bed red and moist. Peristomal contour: Shallowly concave adjacent to stoma, slightly rounded to outer area Supportive Tissue: Soft Character of output: mushy brown stool Emptying frequency per day: 1-2x Pouching System Pouching system removed: Coloplast SenSura Flat Cut-to-Fit Drainable Pouch Wearing time: 3-7 days Pouching system evaluation: mild undermining, aperture too large. Convexity needed to stabilize peristomal skin Recommendations: Skin Care: Apply ConvaTec Stomahesive powder to any areas of skin breakdown PRN until healed. Dust off excess. Pouching system Applied: HNI 2 3/4 ceraplus convex with tape, drainable pouch, lateral edge trimmed to avoid wound. Aquacell to wound and covered with allevyn dressing Expected wearing time: 3-5 days Time Increment: 1 hour Kati Antoine RN, BSN, CWOCN [place] MSN, APPLICATION SUPPORT DEVELOPER, WCCT * Kati Antoine RN - 10/27/2021 3:49 [place] [address] Patient: Debby Bailon Patient Address: [address] [place] [address] Preferred Gender: female Date of : 1980 Type of Stoma: End Descending Colostomy Diagnosis: Colonic Dysmotility K59.9 OSTOMY SUPPLY ORDER FORM Pouch: [place]: #[id number] [place] New Image Closed Opaque Pouch 30/box 30 day use - 2 Boxes Wafer: Ton: New Image FlexWear 2 3/4 Convex with tape # [id number] 30 day use - 2 Boxes Adhesive Removers: Coloplast Brava [place] # [id number] 30 day use - 2 cans Odor Eliminator Drops: Ton Adapt Lubricating Deodorant # [id number] 30 day use - 1 Bottle Powder: ConvaTec Stomahesive # 34572 30 day use - 1 Bottle Refills: 11 Attending Physician: Dr. López For immediate authorization, please contact the physician s office. [facility] Nurse: TOMMY Augustin, CWOCN Note: na SIGNATURE: Kati Antoine RN PATIENT NAME: Debby Bailon DATE: October 27, 2021 TIME: 3:49 PM CONTACT #: [phone] EMAIL: documented in this encounterOur [facility]06-01-[facility]22 History of Present illness Narrative* Sandra López DO - 10/27/2021 1:53 PM EDT COLORECTAL SURGERY Post-Op Visit October 27, 2021 Debby Bailon returns for a post-operative visit after undergoing end colostomy, on 09/30/2021. Her post-operative period was uncomplicated. She is tolerating diet with an improving appetite, stable weight, and energy level is improving . She has no specific complaints, except drainage from midline lap site. Current pain medications: Oxycodone PRN Current bowel related medications: Milk of mag daily, colace daily Bowel movement frequency: 1/day Current Outpatient Medications Medication Sig Dispense Refill magnesium hydroxide (MOM) 400 mg/5 mL suspension Take 30 mL by mouth every 6 hours. insulin glargine (LANTUS SOLOSTAR U-100 INSULIN) 100 unit/mL (3 mL) Inject 33 Units subcutaneously daily at bedtime. E11.65 0 insulin aspart, niacinamide, (FIASP FLEXTOUCH U-100 INSULIN) 100 unit/mL (3 mL) pen Inject 18 Unitssubcutaneously three times daily before meals. (Includes SS # 2 QAC -> Per Endo, Dr. Monson) MAX TDD = 55 UNITS / DAY. E11.65 60 mL 2 glimepiride (AMARYL) 2 mg tablet Take 1 tablet by mouth twice daily with meals. Per Endo: Dr. Monson lisinopril (ZESTRIL, PRINIVIL) 5 mg tablet Take 1 tablet by mouth once daily. Per Endo, Dr. Monson loratadine (CLARITIN) 10 mg tablet Take 1 tablet by mouth once daily. 30 tablet 11 atorvastatin (LIPITOR) 80 mg tablet Take 1 tablet by mouth once daily. 90 tablet 1 furosemide (LASIX) 40 mg tablet Take 1 tablet by mouth once daily. Take in morning 90 tablet 1 oxybutynin ER (DITROPAN XL) 15 mg 24 hr Extended Rel Tab Take 1 tablet by mouth once daily. 90 tablet 1 propranolol (INDERAL) 20 mg tablet Take 1 tablet by mouth twice daily. 180 tablet 1 traZODone (DESYREL) 100 mg tablet Take 1 tablet by mouth daily at bedtime. 90 tablet 1 furosemide (LASIX) 20 mg tablet Take 20 mg by mouth daily at bedtime. sodium chloride irrig solution (NACL 0.9% IRRIGATION BOTTLE) To use for catheter irrigation daily or as needed. 1000 mL 11 Insulin [place], Disposable, (COMFORT EZ PEN NEEDLES) 29 gauge x 1/2 One needle with each lantus shot once a day. Dx: E13.29 on insulin 100 Each 3 psyllium husk (METAMUCIL ORAL) Take by mouth as needed. PSEUDOEPHEDRINE HCL ORAL Take 30 mg by mouth as needed. ondansetron orally disintegrating (ZOFRAN ODT) 8 mg disintegrating tablet 8 mg as needed. acetaminophen (TYLENOL) 325 mg tablet 325 mg as needed. fluticasone (FLONASE) 50 mcg/actuation nasal spray Use 2 Sprays in each nostril once daily. Rinse mouth after use. 1 Bottle 3 Insulin [place], Disposable, 32 gauge x 5/16 ndle Use once daily with Victoza 100 Each 5 Blood-Glucose Meter (ACCU-CHEK HOPE) [facility] Dispense 1 meter kit. Dx: Other DM Code E13.29 1 Each 0 Lancets (ACCU-CHEK FASTCLIX) lancets Test blood sugar 2 times/day. Dx: Other DM Code E13.29 InsulinUse: No 100 Each 11 blood sugar diagnostic (ACCU-CHEK SMARTVIEW TEST STRIP) test strip Test blood sugar(s) 2 times daily. Dx: Other DM Code E13.29 Insulin: No 50 Strip 11 COMPOUNDED PRESCRIPTION Stoma catheter tube. DX: Qo5.4 and K59.2 1 Device 0 No current facility-administered medications for this visit. ALLERGIES Allergen Reactions Ceftriaxone Anaphylaxis Suspected intraop anaphylaxis. See allergy note on 09/30/2021 Mushroom Anaphylaxis Peanuts Anaphylaxis Latex Rash Fentanyl Other: See Comments Suspected intraop anaphylaxis. See allergy note on 09/30/2021 Gabapentin Mental Status Change Patient reports having cognitive/memory issues after taking Lidocaine Other: See Comments Suspected intraop anaphylaxis. See allergy note on 09/30/2021 Midazolam Other: See Comments Suspected intraop anaphylaxis. See allergy note on 09/30/2021 Propofol Other: See Comments Suspected intraop anaphylaxis. See allergy note on 09/30/2021 Rocuronium Other: See Comments Suspected intraop anaphylaxis. See allergy note on 09/30/2021 Mri Contrast [Gadol* GI Upset Ht 154.9 cm (5' 1) Wt 94.3 kg (208 lb) LMP 10/25/2021 BMI 39.30 kg/m Abdominal examination: soft, non-distended, and non-tender without masses or hernias. Lap incisons healing well, except for midline supra umbilical is open, no drainage, received antibiotics from [facility]on post op. No induration , does not look infected Circuit Rider present: Yes Assessment Assessment: Debby Bailon is a 40 year old female who is 4 weeks status post lap end colostomy for ODS . Plan Plan: Continue stoma care, miralax or MOM as needed. Follow up as needed SANDRA LÓPEZ DO documented in this encounterOur [facility]05-06-2022 Miscellaneous Notes* Telephone Encounter - Ban Hanson LPN - 10/01/2021 10:33 AM EDT Patient scheduled for surgery. Ban Hanson LPN * Telephone Encounter - Katalina Ruffin RN - 09/22/2021 11:15 AM EDT Patient calling and statse she will be having colorectal surgery on September [address] Sandra López. (See Dr. López's note 09/22). Patient states she was told by Dr. López's office to contact Jaimee Carbajal to request medical clearance for surgery, since patient had recent MRI of spine as ordered by Jaimee. Patient requests Jaimee Carbajal to fax medical clearance to Dr. López's office if agreeable. (Fax number not provided at this time). Please call patient with update. Thank you. documented in this encounterOur [facility] Of [facility]04-27-2022 History of Present illness Narrative* Nasrin Florez RN - 09/22/2021 10:17 AM EDT Images from the original note were not included. ET/WOC Nursing Note Topic: STOMA MARKING ET Outcome: Patient seen today in A30 with Dr. López for marking for colostomy. Per Dr. López, patient has mesh in the abdomen, quynh for LUQ. With patient's permission, LUQ tattooed with Coco ink and 25G needle. Patient was accompanied by her . The stoma marking purpose and procedure was explained: yes. The patient verbalized understanding and agrees to the marking: yes. Rectus Muscle boarders are located: yes. Abdominal contour evaluation was performed in the lying position, sitting position and standing position. The stoma marking was made according to ET/WOC Nursing Procedure #401 in the LUQ. Patient is able to see site in the following positions: lying position, sitting position and standing position Time Increment: 1 hour Nasrin Florez MA, BSN, RN-BC, CWOCN WOC Nursing- Please place consult via EPIC. Thank you. (M-F: [phone], Weekends & Holidays : [phone]) documented in this encounterOur Lady Of Mer[facility] Hospital04-27-2022 Miscellaneous Notes* Telephone Encounter - Cinthia Zafar PA-C - 09/22/2021 9:24 AM EDT Good morning Dr. López, I saw this patient for PACC this morning for upcoming colostomy and diagnostic laparoscopy scheduled for 09/30/2021. Patient is on glimepiride and insulin for T2DM. Patient's A1C in 07/2021 was elevated at 10.5%. Please let me know if you have any concerns proceeding with surgery. Thank you, Cinthia Zafar PA-C [facility] documented in this encounterOur [facility] Of [facility]04-27-2022 History and physical note * Cinthia Zafar PA-C - 09/22/2021 8:50 AM EDT Images from the original note were not included. HISTORY AND PHYSICAL EXAMINATION SERVICE DATE: 09/22/2021 SERVICE TIME: 8:50 AM PRIMARY CARE PHYSICIAN: Will Brannon MD REASON FOR VISIT: Debby Bailon is a 40 year old female who is scheduled for COLOSTOMY ADULT, LAPAROSCOPY DIAGNOSTIC at the request of Dr. Sandra López for consultation. My final recommendation will be communicated back to the requesting physician by way of shared medical record or letter. The patient has the following: ACTIVE PROBLEM LIST Cyst of Ovary Anxiety Dysthymic Disorder Panic Attacks Neck Pain Cervical Radiculopathy Weakness of Both Upper Extremities Muscle Weakness of Lower Extremity Numbness and Tingling of Left Arm and Leg Lipomeningocele (Hcc) Lumbago Neuropathy Morbid Obesity With Bmi of 40.0-44.9, Adult (Hcc) Chronic Pain Neurogenic Bladder Hydronephrosis, Right Spina Bifida (Hcc) Neurogenic Bowel Primary Insomnia Type 2 Diabetes Mellitus With Proteinuria (Hcc) Diabetic Eye Exam ([facility]) Type 2 Diabetes Mellitus With Albuminuria (Hcc) Paroxysmal Svt (Supraventricular Tachycardia) (Hcc) Dm (Diabetes Mellitus), Secondary, Uncontrolled, W/Renal Complications Thyroid Cyst Migraine Without Aura and Without Status Migrainosus, Not Intractable Medicare Annual Wellness Visit, Subsequent Mixed Hyperlipidemia History of Recurrent [place] History of Kidney Stones Bilateral Leg Edema Djd (Degenerative Joint Disease), Thoracic Suprapubic Catheter (Hcc) Essential Hypertension Lesion of Uterus Abnormal Vaginal Bleeding History of 2018 Novel Coronavirus Disease (Covid-19) Fatty Liver Elevated Lfts Amputation of Left Great Toe (Hcc) Bladder Stone Hyponatremia Type 2 Diabetes Mellitus With Hyperglycemia, With Long-Term Current Use of Insulin (Hcc) History of Manley's Palsy Subjective CHIEF COMPLAINT: Pre-op visit, colonic dysmotility HPI: Debby Bailno is a 40 year old female presenting for pre-anesthesia consultation. Pt has history of spina bifida with neurogenic bowel. Patient reports no sensation in her pelvis. Patient reports h/o multiple admission for severe constipation. Above procedure recommended to manage symptoms. Procedure scheduled on 09/30/21 at . PAST MEDICAL HISTORY Diagnosis Date Anxiety Arthritis started age 19 Bilateral leg edema 07/16/2018 Cervical radiculopathy 05/02/2013 Chronic pain 02/12/2015 Cyst of ovary 11/28/2011 Diabetic eye exam (HCC) 06/17/2016 Last done: 01/25/2017 Diabetic eye exam (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 Elevated LFTs 03/11/2020 Essential hypertension 02/21/2019 Fatty liver 03/11/2020 US 10/2019 History of kidney stones 01/04/2016 History of recurrent UTIs 11/28/2011 Hydronephrosis, right 01/04/2016 Lipomeningocele, sacral level 09/12/2013 Lumbago 02/12/2015 Medicare annual wellness visit, subsequent 02/28/2018 last done: 02/28/2018 Migraine without aura and without status migrainosus, not intractable 10/18/2016 Miscarriage Mixed hyperlipidemia 02/28/2018 Morbid obesity (HCC) 02/12/2015 Muscle weakness of left lower extremity 08/07/2013 Neck pain 05/02/2013 Neurogenic bladder 02/12/2015 Neurogenic bowel 01/06/2016 Neuropathy 02/12/2015 post back surgery with secondary infection. Seeing Dr. Gregg Numbness and tingling of left arm and leg 08/07/2013 Obesity, Class III, BMI >= 40 08/23/2018 Panic attacks Paroxysmal SVT (supraventricular tachycardia) (HCC) 07/03/2017 Per 48 Hr event monitor 06/30/2017 Primary insomnia 02/17/2016 S/P hernia repair 12/11/2017 Spina bifida (HCC) 01/06/2016 Suprapubic catheter (HCC) Thyroid cyst 01/01/2018 Complex right sided cysts. US 12/2017, biopsy per Dr. Josue 01/23/2018 benign. Repeat US in a year. Type 2 diabetes mellitus with albuminuria ([facility]) 10/18/2016 Type 2 diabetes mellitus with hyperglycemia, with long-term current use of insulin ([facility]) 07/26/2021 Type 2 diabetes mellitus with proteinuria ([facility]) 02/19/2016 Ulcer of left foot ([facility]) 02/21/2017 Ventral hernia without obstruction or gangrene Weakness of both upper extremities 08/07/2013 Chronic PAST SURGICAL HISTORY Procedure Laterality Date 2D ECHO (EXEP) 06/28/2017 EF=65%. nl AMPUTATION TOE,MT-P JT Left 02/11/2020 left big toe CATH, SUPRAPUBIC/CYSTOSCOPIC 11/07/2018 CYSTOSCOPY,REMV CALCULUS,COMPLIC 11/10/2020 DILATION & CURETTAGE DX&/THER NONOBSTETRIC Dilation & curettage HERNIA REPAIR W/MESH 2018 LEXISCAN STRESS TEST 07/20/2018 negative NUCLEAR STRESS LEXISCAN (CARD) 10/24/2018 negative PAST SURGICAL HISTORY OF 2010 cholecystectomy PAST SURGICAL HISTORY OF 09/2012 back surgery x2 PAST SURGICAL HISTORY OF Left 02/2014 foot x2 PAST SURGICAL HISTORY OF 07/2015 Bowles stoma REPAIR UMBILICAL HERNIA 12/11/2017 STRESS ECHO 12/09/2019 Negative STRESS TEST 07/18/2017 normal STRESS TEST 03/15/2018 negative FAMILY HISTORY Problem Relation Age of Onset Cancer Father Skin Arthritis Mother Diabetes Mother Heart Mother Hypertension Mother Lipids Mother Stroke Mother Thyroid Mother Cancer Maternal Grandmother LIVER CANCER Cancer Maternal Uncle Great Uncle Cancer Maternal Uncle Great Uncle Anesthesia Problems No Family History SOCIAL HISTORY: Social History Tobacco Use Smoking status: Never Smoker Smokeless tobacco: Never Used Vaping Use Vaping Use: Never used Substance Use Topics Alcohol use: Not Currently Comment: social Drug use: No MEDICATIONS: Prior to Admission medications as of 09/22/21 0855 Medication Sig Last Dose Taking insulin glargine (LANTUS SOLOSTAR U-100 INSULIN) 100 unit/mL (3 mL) Inject 33 Units subcutaneously daily at bedtime. E11.65 Yes insulin aspart, niacinamide, (FIASP FLEXTOUCH U-100 INSULIN) 100 unit/mL (3 mL) pen Inject 18 Unitssubcutaneously three times daily before meals. (Includes SS # 2 QAC -> Per Endo, Dr. Monson) MAX TDD = 55 UNITS / DAY. E11.65 Yes glimepiride (AMARYL) 2 mg tablet Take 1 tablet by mouth twice daily with meals. Per Endo: Dr. Monson Yes lisinopril (ZESTRIL, PRINIVIL) 5 mg tablet Take 1 tablet by mouth once daily. Per Dr. Ermias Salomon Yes loratadine (CLARITIN) 10 mg tablet Take 1 tablet by mouth once daily. Yes atorvastatin (LIPITOR) 80 mg tablet Take 1 tablet by mouth once daily. Yes furosemide (LASIX) 40 mg tablet Take 1 tablet by mouth once daily. Take in morning Yes oxybutynin ER (DITROPAN XL) 15 mg 24 hr Extended Rel Tab Take 1 tablet by mouth once daily. Yes propranolol (INDERAL) 20 mg tablet Take 1 tablet by mouth twice daily. Yes traZODone (DESYREL) 100 mg tablet Take 1 tablet by mouth daily at bedtime. Yes furosemide (LASIX) 20 mg tablet Take 20 mg by mouth daily at bedtime. Yes sodium chloride irrig solution (NACL 0.9% IRRIGATION BOTTLE) To use for catheter irrigation daily or as needed. Yes Insulin [place], Disposable, (COMFORT EZ PEN NEEDLES) 29 gauge x 1/2 One needle with each lantus shot once a day. Dx: E13.29 on insulin Yes psyllium husk (METAMUCIL ORAL) Take by mouth as needed. Yes PSEUDOEPHEDRINE HCL ORAL Take 30 mg by mouth as needed. Yes ondansetron orally disintegrating (ZOFRAN ODT) 8 mg disintegrating tablet 8 mg as needed. Yes acetaminophen (TYLENOL) 325 mg tablet 325 mg as needed. Yes fluticasone (FLONASE) 50 mcg/actuation nasal spray Use 2 Sprays in each nostril once daily. Rinse mouth after use. Yes COMPOUNDED PRESCRIPTION Stoma catheter tube. DX: Qo5.4 and K59.2 Yes amoxicillin (POLYMOX, AMOXIL) 500 mg capsule TAKE 4 CAPSULES BY MOUTH ONE HOUR PRIOR TO DENTAL APPOINTMENT. Patient not taking: Reported on 08/02/2021 Insulin [place], Disposable, 32 gauge x 5/16 ndle Use once daily with Victoza Blood-Glucose Meter (ACCU-CHEK HOPE) [facility] Dispense 1 meter kit. Dx: Other DM Code E13.29 Lancets (ACCU-CHEK FASTCLIX) lancets Test blood sugar 2 times/day. Dx: Other DM Code E13.29 InsulinUse: No blood sugar diagnostic (ACCU-CHEK SMARTVIEW TEST STRIP) test strip Test blood sugar(s) 2 times daily. Dx: Other DM Code E13.29 Insulin: No No medication comments found. CURRENT ALLERGIES: ALLERGIES Allergen Reactions Mushroom Anaphylaxis Peanuts Anaphylaxis Latex Rash Mri Contrast [Gadol* GI Upset COVID VACCINATION STATUS: Not vaccinated, prior infection - 2019 REVIEW OF SYSTEMS: PAIN ASSESSMENT: Pain Pain Level: 8 Pain Location: Abdomen Description: Throbbing;Pressure Ulcer/Injury Duration Units: Years Frequency: Continuous Intervention/Comfort measure: Medication General: No weight loss, malaise or fevers. Neuro: +Migraines - on propranolol +Spina bifida - dx at age 33, s/p spine surgery x 2 in 2013. +Neuropathy +Manley's palsy - in 03/2015, L side of face, patient also reports recent episode of L facial weakness and slurred speech in 06/2021. Had MRI brain on 09/09/2021 with minimal chronic microvascular ischemic changes, follows with [facility] neuro, OV 08/26/21. Negative for TIA's Seizures Stroke-residual deficit Stroke-No residual deficit Respiratory: No history of current cough or dyspnea, or pneumonia in the past 6 weeks. No history of respiratory/pulmonary symptoms or problems. Cardiovascular: +HTN +HLD +Paroxysmal SVT, palpitations - on propranolol +LE edema - on Lasix, denies new or worsening sx. Negative for CHF, Valvular Heart Disease, DVT/PE GI: See HPI +Fatty liver Negative for ETOH > 2 drinks / day : +Neurogenic bladder - s/p suprapubic cath, patient reports that she had blood in urine this morning, states this is common after straining to try to have BM which she did last night. +H/o kidney stones Negative for CKD. Endocrine: +DM2 - on glimepiride and insulin. Does check BS at home (has Rosa), FBS this morning 179. A1C 10.5 in 07/2021. +Thyroid nodules - has had bx that have been normal. Denies PO steroids in the past 30 days. Hematology: No history of bleeding or clotting disorder. Pt is not taking anti- coagulation or platelet medications. No history of hematological symptoms or problems. Oncology: No history of CA metastasis, chemo within 30 days, or radiotherapy within 90 days. Has not lost 10% of body wt in 6 months. No history of oncological symptoms or problems. Psych: +Depression, anxiety Musculoskeletal: +Chronic pain Skin: Negative for lesions, rash and itching. Objective PHYSICAL EXAM: VITALS: BP 142/76 Pulse 73 Temp (Src) 97.7 (Temporal) Ht 5' 1 (1.55m) Wt 218 lb 3.2 oz (99.0kg) SpO2 97% LMP 09/21/2021 BMI 41.25 kg/(m^2). General: Alert and oriented, No acute distress, Morbidly obese Skin: Normal color, no rash, no lesions. HEENT: EOM, pupils equal, round and reactive., No carotid bruits Cardiovascular: Normal S1 & S2, no rubs, murmurs or gallops. Pulse regular. Lungs: Normal breath sounds, no wheezes or crackles. Extremities: No deformity, no edema or tenderness, no joint swelling or clubbing. Neurological: Normal cognition and motor skills. Gait not observed, in wheelchair. Pulses: Radial pulses; left 2+ / right 2+. Diagnostic tests reviewed for today's visit: Lab Value Units Date High Low HB 13.4 g/dL 07/29/2021 15.5 11.5 HCT 40.9 % 07/29/2021 46.0 36.0 WBC 11.99 k/uL 07/29/2021 11.00 3.70 PLT 235 k/uL 07/29/2021 400 150 NA 133 mmol/L 07/29/2021 144 136 NA 134 mmol/L 04/07/2021 144 136 K 4.0 mmol/L 07/29/2021 5.1 3.7 GLUC 311 mg/dL 07/29/2021 99 74 BUN 11 mg/dL 07/29/2021 21 7 CREAT 0.69 mg/dL 07/29/2021 0.96 0.58 PTSEC No results within date range. INR No results within date range. APTT No results within date range. ALT 34 U/L 07/29/2021 38 7 AST 32 U/L 07/29/2021 35 13 TBILI 0.2 mg/dL 07/29/2021 1.3 0.2 TSH 1.370 mIU/L 08/26/2021 4.200 0.270 Lab Value Units Date High Low HCGQT No results within date range. UHCG No results within date range. HCG, BODY* No results within date range. Lab Value Units Date High Low ABORHD No results within date range. ABSCREEN No results within date range. Hemoglobin A1C Date Value 07/29/2021 10.5 % 03/05/2021 12 10/30/2020 10.9 % 03/09/2020 9.6 % 10/09/2019 10.7 % 06/12/2019 9.9 % 02/21/2019 8.1 % Hemoglobin A1C (POCT) (%) Date Value 06/25/2020 11.6 Recent Results (from the past 8760 hour(s)) ECG COMPLETE Collection Time: 10/30/20 2:49 PM Result Value Ventricular Rate 69 Atrial Rate 69 P-R Interval 142 QRS Duration 80 QT Interval 432 QTC Calculation (Bazett) 462 Calculated P Hydes 18 Calculated R Hydes 51 Calculated T Hydes 28 Impression NORMAL SINUS RHYTHM NORMAL ECG Stress Echo 11/2019 (in C/E) Stress test 07/20/2018 CONCLUSIONS: 1. SPECT Perfusion Study: Normal. 2. [...] risk scan. Gated Stress FBP LVEF % 74 PENDING Assessment/Plan Morbid obesity with BMI of 40.0-44.9, adult ([facility]) Assessment: Body mass index is 41.23 kg/m . Migraine without aura and without status migrainosus, not intractable Assessment: Stable, on propranolol. History of Manley's palsy Assessment: In 03/2015, L side of face, patient also reports recent episode of L facial weakness and slurred speech in 06/2021 and was treated with prednisone. Had MRI brain on 09/09/2021 with minimal chronic microvascular ischemic changes, follows with [facility] neuro, OV 08/26/21. Spina bifida (HCC) Assessment: Dx at age 33, s/p spine surgery x 2 in 2013. Essential hypertension Assessment: Compliant on RX, BP today 142/76. Mixed hyperlipidemia Assessment: Compliant on RX. Paroxysmal SVT (supraventricular tachycardia) ([facility]) Assessment: Pt reports h/o palpitations, managed on propranolol. RRR on exam today, ECG pending. Neurogenic bladder Assessment: S/p suprapubic catheter. Type 2 diabetes mellitus with hyperglycemia, with long-term current use of insulin ([facility]) Assessment: Uncontrolled on glimepiride and insulin. Does check BS at home (has Rosa), FBS this morning 179. A1C 10.5 in 07/2021. TE sent to surgeon on 09/22/2021 as FYI regarding A1C of 10.5% in 07/2021. METS: Patient reports fatigue and numbness 2/2 spina bifida. Climb a flight of stairs or walk up a hill (5.50 METs) Patient denies any chest pain or undue shortness of breath with the above physical activity. ASA Class: 3 ANESTHESIA FINDINGS: Intubation History: No history of difficult intubation Significant Anesthesia Considerations: None Airway Exam: General: Morbid obesity Mallampati Score is CLASS II ULBT: Class II - Lower incisors can bite the upper lip below the sallie line Neck: Normal function, thick neck, Distance from hyoid to mentum during neck extension is at least 3 finger breaths Mouth: Normal tongue size and Mouth opening greater than 2 finger breaths Dentition: chipped teeth Airway History: No abnormal airway history Sleep Apnea Probability Snores loudly: No Tired, fatigued or sleepy in daytime: Yes Stops breathing or choking/gasping during sleep: No High blood pressure: Yes Sleep Apnea Probability Score 09/15/2021 Sleep Apnea Screen V2 21.5 (Sleep study not recommended) PLAN This patient is optimally prepared for surgery pending LABS, EKG and CONSULT WITH SURGEON. CONSULTS: The following consults have been initiated at this time: Surgeon for FYI regarding A1C of 10.5 in 07/2021.. - TE sent to surgeon on 09/22/2021. The Following Tests/Procedures Have Been Initiated: Orders placed by surgeon in Epic. Planned Anesthetic: General Instructions Given to Patient: Instructions located in the after visit summary. Patient given verbal and written preop instructions and voices comprehension and compliance. SIGNATURE: Cinthia Zafar PA-C PATIENT NAME: Debby Bailon DATE: September 21, 2021 TIME: 11:53 AM documented in this encounterOur Lady Of Mercy Hospital04-27-2022 Instructions* Patient Instructions* Cinthia Zafar PA-C - 09/22/2021 8:50 AM EDT PATIENT PREOPERATIVE INSTRUCTIONS Sandra López DO has scheduled you for your procedure at this surgery center: [facility] Scheduling Office: [phone] --[address] [place] [address]. Please read below carefully for your personalized instructions. Dietary Restrictions: Follow diet instructions from surgeon's office, which may include liquid diet the day before your procedure. - No solid food after midnight. - You may have 12 ounces of clear liquids (water, clear juices such as apple juice or gatorade, carbonated beverages, clear tea, black coffee, jello) until 2 hours before scheduled arrival at facility. Medications: Unless instructed differently below, stay on all of your medications until your surgery. Approved medications to take the morning of surgery with a sip of water: atorvastatin, propranolol - No diabetic medication the morning of surgery. - Take full dose of insulin the day before surgery. If you start any new medications after today's visit, please contact the surgeon's office. Blood Thinning Medications: - Stop NSAIDS (Ibuprofen, Advil, Aleve, Motrin, Celebrex, Mobic, etc.) 7 days before surgery, as directed by your surgeon. - Stop Aspirin 7 days before surgery, as directed by your surgeon. - Stop Vitamin E, ALL multi-vitamins, herbals and dietary supplements 7 days before surgery. - You may take Tylenol (Acetaminophen) or any of your pain medications that do not contain aspirin or NSAIDS as needed. Important Reminders: - Candy, mints, and tobacco products are NOT permitted the morning of surgery. - Hearing aids, dentures and glasses may be worn the morning of surgery. - NO jewelry, body piercings, makeup, hairpins or contacts are to be worn the day of surgery. If you develop symptoms such as a fever, cold, or flu, or have other changes to your health within TWO DAYS of scheduled surgery or the morning of surgery, please contact the surgery center above. Personal Belongings: -Please have photo ID and insurance cards. -If you do not have a copy of advance directives on file with us, please bring a copy with you on the day of surgery. - Leave ALL valuables and money at home or with family members. Arrival Time for Surgery: - To obtain your arrival time for surgery, call your physician's office the day before your surgery. - If your surgery is scheduled for Monday, call the Monday before. Your surgeon s personnel scheduler will tell you what time to call the office. - If you have not reached the departmental personnel scheduler by 5 P.M., call [phone] after 5 P.M. the day before your surgery. Please be aware that emergency situations arise, which may delay or change your surgical time. If this happens, we will notify you as soon as possible and regret any inconvenience. If you already have an Advance Directive, please fax a copy to [phone] or email to for it to be added to your chart. If you do not have an Advance Directive, you can find the appropriate form and more information at [email or web address]. We recommend that youcomplete the Advance Directive form found on the website and bring it with you the day of your surgery. It can be witnessed and scanned into your chart that day. documented in this encounterOur Lady Of Mercy Hospital04-14-2022 History of Present illness Narrative* RT Amira(R) - 09/09/2021 11:20 AM EDT Radiology Service Progress Note PATIENT NAME: Debby Bailon DATE OF SERVICE: September 09, 2021 TIME: 10:57 AM PATIENT IDENTITY VERIFICATION COMPLETED USING TWO (2) IDENTIFIERS: Name and Date of confirmedby patient verbally. FALL SCREENING: Has the patient had 2 falls in the last year or 1 fall with injury or currently using an Ambulatory Assistive Device (Walker, Cane, Wheelchair, Crutches, etc.)? No PATIENT GENDER DATA: Female. status: : No status: NO. PATIENT RELEVANT IMPLANT DATA REVIEWED: Yes RADIOLOGY DEPARTMENT: MR; Exam(s) Completed: Spine: Lumbar spine PERIPHERAL IV DATA: Not applicable SIGNED BY: RT Amira(Qing) September 09, 2021 10:57 AM documented in this encounterOur Lady Of Mercy Hospital04-14-2022 History of Present illness Narrative* DREW Collier) - 09/09/2021 10:40 AM EDT Radiology Service Progress Note DATE OF SERVICE: September 09, 2021 TIME: 12:01 PM PATIENT IDENTITY VERIFICATION COMPLETED USING TWO (2) STANDARD IDENTIFIERS: Name and Date of confirmed by patient verbally. FALL SCREENING: Has the patient had 2 falls in the last year or 1 fall with injury or currently using an Ambulatory Assistive Device (Walker, Cane, Wheelchair, Crutches, etc.)? No PATIENT GENDER DATA: Female. status: : No status: NO. PATIENT RELEVANT IMPLANT DATA REVIEWED: Yes ALLERGIES: Reviewed and unchanged CONTRAST ALLERGY: NO. EXAM: MRI - CONTRAST TYPE: GROUP II PERIPHERAL IV DATA: Ambulatory: A peripheral IV was started in the Right antecubital site with a Angio cath: 22 gauge. RADIOLOGY DEPARTMENT: MR; Exam(s) Completed: Head: IAC/CPA SIGNATURE: RT Amira(Qing) PATIENT NAME: Debby Bailon DATE: September 09, 2021 TIME: 12:01 PM documented in this encounterOur Lady Of Mercy Hospital04-08-2022 Miscellaneous Notes* Telephone Encounter - Angeline Roberts RN - 09/03/2021 2:22 PM EDT SPECIALTY CARE COORDINATION FOLLOW-UP NOTE Called patient discussed requirements to be completed prior to surgery. Pt understands she needs clearance from PCP and from Neuro. Mri on 09/09/ EMG 09/17 follow up within the week after- pt to call to schedule this. Pt states will call to set up covid test at local facility. Will schedule September 27 or - fax number given for them to fax results to [facility]. Pt agreed to September 22 for pre-ops October 04 for surgical date. Exploratory lap w/ end colostomy Will need (PACC, labs, ekg, consent, stoma, pt ed, covid) Pt readback directions and agrees to dates. To follow up with office or via mychart with any questions that arise. Signature Angeline Roberts RN September 03, 2021 * Telephone Encounter - Angeline Roberts RN - 09/03/2021 2:22 PM EDT ----- Message from Sandra López DO sent at 09/02/2021 3:53 PM EDT ----- She need to be scheduled for exloratory laparoscopy, end colostomy. She is having MRIs of the brainto rule out new stroke. She needs to get that done first. She needs a clearance from PCP that she is ok for surgery . Her MRI is scheduled for 09/09 , after that she needs to see neurology . So maybe sometime mid to late september?? Pencil the date in Thanks, documented in this encounterOur Lady Of Mercy Hospital04-05-2022 History of Present illness Narrative* Naty Haddad LPN - 08/31/2021 4:34 PM EDT CC Supra pubic catheter in Place HPI: Debby Bailon is a 40 year old female. The patient is here now for a supra pubic catheter change. Procedure: Performed a catheter change. Removed fluid from balloon in the cook. The supra pubic cook size 18 Fr silicone was removed withcatheter tip intact without difficulty. Inserted 18 Fr catheter using aseptic technique. Bulb infalted with 10 mLs prefilled syringe. Irrigated supra pubic catheter with 60 mL 0.9% sodium chloride without difficulties. Approximately 60 mLs yellow urine return noted. Catheter secured with T-Sponge and tape per patients preference. The patient tolerated the procedure well. Assessment/Plan: Successful catheter change. Return for catheter changes as planned. Naty Haddad LPN documented in this encounterOur Lady Of Mercy Hospital04-01-2022 Miscellaneous Notes* Telephone Encounter - Ban Hanson LPN - 08/27/2021 8:44 AM EDT Faxed EMG orders and pertinent information to [facility] Outpatient services per patient request. Ban Hanson LPN documented in this encounterOur Lady Of Mercy Hospital03-31-2022 History of Present illness Narrative* Jaimee Carbajal APRN.[facility] - 08/26/2021 3:30 PM EDT Images from the original note were not included. [facility] [place] New Patient visit New Patient Consultation August 25, 2021 HPI: Ms. Bailon presents today secondary to issues of numbness to L foot. She states that over 8years ago she started having foot numbness. Symptoms are continuing to worsen at this time. Found out 8 years ago she had spina bifida. States she used to follow with neurology throughout [facility] but hasnot been seen in some time. States that now that symptoms are worse she needs new neurologist. States she has no feeling left in her left foot. Some feeling in her right foot. Numbness is radiating up her legs. L side is to right below knee. R side loss of feeling is on lateral aspect of lowerleg. Had follow up with PCP who referred her to neurology. She had lumbar MRI in the past; dx with spinabifida. She was then referred to Dr. Wilhelm with neurosurgery and had one surgery to low back on 09/30/13. Had infection to low back and had to have second surgery a few weeks later. Followed up with Dr. Wilhelm one year later. No further surgery needed and did not follow up after this this. After her second surgery she started noting symptoms in legs. Had EMG many years ago through [facility]; imaging noted from 08/19/13. Last lumbar MRI was a few years agoaround 2016 possibly. 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 Hx of neurogenic bowel. States issues ever since I can remember. Sx became really bad this past year. Seeing surgeon at . She states neurogenic bladder occurred after second lumbar surgery. Hx of DM. Recent A1C was 10.5 and five months ago noted to be 12. Dx in 2013. Denies vitamin deficiency. Reports hx of multiple thyroid biopsies due to lumps. States she had amputation of one toe due to bone infection last year. Three surgeries on L foot prior since 2013. Also had fall last year and broke two bones in her left foot. Later during appointment states she had an episode where she had severe neck pain and a tension headache and lost vision in her L eye. States the L side of her face was drooping. Slurred speech. Had an eye appt that day and was to follow up with PCP for possible Manley's Palsy. She did go to the ED later that night and was given prednisone for Manley's Palsy dx. No imaging of brain. States symptoms resolved roughly three weeks ago. Still having frequent tension headaches on left side of her head behind her eye. States when they become severe the L side will hurt. Will have eye spasms at times as well. 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 Alcohol: Socially Tobacco: Denies Drug: Denies PAST MEDICAL HISTORY Diagnosis Date Anxiety Arthritis started age 19 Bilateral leg edema 07/16/2018 Cervical radiculopathy 05/02/2013 Chronic pain 02/12/2015 Cyst of ovary 11/28/2011 Diabetic eye exam (HCC) 06/17/2016 Last done: 01/25/2017 Diabetic eye exam (HCC) 06/17/2016 Last done: 03/08/2019 DJD (degenerative joint disease), thoracic DM (diabetes mellitus), secondary, uncontrolled, w/renal complications 12/05/2017 Dysthymic disorder Depression (non-psychotic), sees [facility] at [facility]. Elevated LFTs 03/11/2020 Essential hypertension 02/21/2019 Fatty liver 03/11/2020 US 10/2019 History of kidney stones 01/04/2016 History of recurrent UTIs 11/28/2011 Hydronephrosis, right 01/04/2016 Lipomeningocele, sacral level 09/12/2013 Lumbago 02/12/2015 Medicare annual wellness visit, subsequent 02/28/2018 last done: 02/28/2018 Migraine without aura and without status migrainosus, not intractable 10/18/2016 Miscarriage Mixed hyperlipidemia 02/28/2018 Morbid obesity (HCC) 02/12/2015 Muscle weakness of left lower extremity 08/07/2013 Neck pain 05/02/2013 Neurogenic bladder 02/12/2015 Neurogenic bowel 01/06/2016 Neuropathy 02/12/2015 post back surgery with secondary infection. Seeing Dr. Gregg Numbness and tingling of left arm and leg 08/07/2013 Obesity, Class III, BMI >= 40 08/23/2018 Panic attacks Paroxysmal SVT (supraventricular tachycardia) (HCC) 07/03/2017 Per 48 Hr event monitor 06/30/2017 Primary insomnia 02/17/2016 S/P hernia repair 12/11/2017 Spina bifida (HCC) 01/06/2016 Suprapubic catheter ([facility]) Thyroid cyst 01/01/2018 Complex right sided cysts. US 12/2017, biopsy per Dr. Josue 01/23/2018 benign. Repeat US in a year. 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) 10/18/2016 Type 2 diabetes mellitus with hyperglycemia, with long-term current use of insulin (HCC) 07/26/2021 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) 02/19/2016 Ulcer of left foot (HCC) 02/21/2017 Ventral hernia without obstruction or gangrene Weakness of both upper extremities 08/07/2013 Chronic PAST SURGICAL HISTORY Procedure Laterality Date 2D ECHO (EXEP) 06/28/2017 EF=65%. nl AMPUTATION TOE,MT-P JT Left 02/11/2020 left big toe CATH, SUPRAPUBIC/CYSTOSCOPIC 11/07/2018 CYSTOSCOPY,REMV CALCULUS,COMPLIC 11/10/2020 DILATION & CURETTAGE DX&/THER NONOBSTETRIC Dilation & curettage HERNIA REPAIR W/MESH 2018 LEXISCAN STRESS TEST 07/20/2018 negative NUCLEAR STRESS LEXISCAN (CARD) 10/24/2018 negative PAST SURGICAL HISTORY OF 2011 cholecystectomy PAST SURGICAL HISTORY OF 09/2012 back surgery x2 PAST SURGICAL HISTORY OF Left & 02/2014 foot x2 PAST SURGICAL HISTORY OF 07/2015 Bowles stoma REPAIR UMBILICAL HERNIA 12/11/2017 STRESS ECHO 12/09/2019 Negative STRESS TEST 07/18/2017 normal STRESS TEST 03/15/2018 negative Current Outpatient Medications on File Prior to Visit Medication Sig insulin glargine (LANTUS SOLOSTAR U-100 INSULIN) 100 unit/mL (3 mL) Inject 33 Units subcutaneously daily at bedtime. E11.65 amoxicillin (POLYMOX, AMOXIL) 500 mg capsule TAKE 4 CAPSULES BY MOUTH ONE HOUR PRIOR TO DENTAL APPOINTMENT. (Patient not taking: Reported on 08/02/2021) insulin aspart, niacinamide, (FIASP FLEXTOUCH U-100 INSULIN) 100 unit/mL (3 mL) pen Inject 18 Unitssubcutaneously three times daily before meals. (Includes SS # 2 QAC -> Per Umm, Dr. Monson) MAX TDD = 55 UNITS / DAY. E11.65 glimepiride (AMARYL) 2 mg tablet Take 1 tablet by mouth twice daily with meals. Per Endo: Dr. Monson lisinopril (ZESTRIL, PRINIVIL) 5 mg tablet Take 1 tablet by mouth once daily. Per Dr. Ermias Salomon loratadine (CLARITIN) 10 mg tablet Take 1 tablet by mouth once daily. atorvastatin (LIPITOR) 80 mg tablet Take 1 tablet by mouth once daily. furosemide (LASIX) 40 mg tablet Take 1 tablet by mouth once daily. Take in morning furosemide (LASIX) 20 mg tablet Take 1 tablet by mouth once daily. Take in evening oxybutynin ER (DITROPAN XL) 15 mg 24 hr Extended Rel Tab Take 1 tablet by mouth once daily. propranolol (INDERAL) 20 mg tablet Take 1 tablet by mouth twice daily. traZODone (DESYREL) 100 mg tablet Take 1 tablet by mouth daily at bedtime. furosemide (LASIX) 20 mg tablet Take 20 mg by mouth daily at bedtime. sodium chloride irrig solution (NACL 0.9% IRRIGATION BOTTLE) To use for catheter irrigation daily or as needed. Insulin [place], Disposable, (COMFORT EZ PEN NEEDLES) 29 gauge x 1/2 One needle with each lantus shot once a day. Dx: E13.29 on insulin psyllium husk (METAMUCIL ORAL) Take by mouth as needed. PSEUDOEPHEDRINE HCL ORAL Take 30 mg by mouth as needed. ondansetron orally disintegrating (ZOFRAN ODT) 8 mg disintegrating tablet 8 mg as needed. acetaminophen (TYLENOL) 325 mg tablet 325 mg as needed. fluticasone (FLONASE) 50 mcg/actuation nasal spray Use 2 Sprays in each nostril once daily. Rinse mouth after use. Insulin [place], Disposable, 32 gauge x 5/16 ndle Use once daily with Victoza Blood-Glucose Meter (ACCU-CHEK HOPE) [facility] Dispense 1 meter kit. Dx: Other DM Code E13.29 Lancets (ACCU-CHEK FASTCLIX) lancets Test blood sugar 2 times/day. Dx: Other DM Code E13.29 InsulinUse: No blood sugar diagnostic (ACCU-CHEK SMARTVIEW TEST STRIP) test strip Test blood sugar(s) 2 times daily. Dx: Other DM Code E13.29 Insulin: No COMPOUNDED PRESCRIPTION Stoma catheter tube. DX: Qo5.4 and K59.2 No current facility-administered medications on file prior to visit. Social History Tobacco Use Smoking status: Never Smoker Smokeless tobacco: Never Used Vaping Use Vaping Use: Never used Substance Use Topics Alcohol use: Yes Comment: SOCIALLY Drug use: No ALLERGIES Allergen Reactions Mushroom Anaphylaxis Peanuts Anaphylaxis Latex Rash Mri Contrast [Gadol* GI Upset Review of Systems: ENT: denies loss of hearing, vertigo Vision: denies + blurring vison, double vision/diplopia Dermatologic: denies rash Cardiopulmonary: denies chest pain, palpitations Respiratory: denies shortness of breath GI: denies recent nausea, vomiting : denies incontinence, + catheter Sleep: denies issues with sleeping Musculoskeletal: Denies + weakness, joint ache/pain Back/spine: denies low back, mid back, or + cervical pains Neuro: denies tremors, loss of feeling, dizziness, seizure, blackout, paresthesia, facial paresthesia, facial weakness, difficulty in speech, + slurring of words, dysarthria, dysphagia, memory loss, + headache Physical Exam: 08/26/21 1532 BP: 98/82 Pulse: 76 Resp: 18 Temp: 36.2 C (97.2 F) SpO2: 96% Weight: 99.8 kg (220 lb) Patient is alert and in no distress. Dress is appropriate. Mood is appropriate Breathing appears regular and unstressed Neurologic examination: Cognitively intact. No deficits. No formal MMSE performed. CN: Pupils equal and reactive to light, extraocular movements intact with no nystagmus, face is symmetric with no facial droop, facial sensation intact bilaterally to light touch. V1-3, hearing intact bilaterally, symmetric evaluation of the soft palate, tongue is midline with no deviation, shoulder shrug is symmetric. Motor exam shows 5/5 strength symmetric through the upper and lower extremities in all groups tested with exception of BLE weakness 3+/5 on left throughout and 4/5 on right throughout. Sensory intact to light touch in all extremities. Vibratory sensation is intact and symmetric all extremities. Pinprick sensation intact to BUE. Decreased to lateral aspect of BLE to level of knee. Decreased tomedial aspect of LLE to level of knee. Intact both anteriorly and posteriorly bilaterally. Deep tendon reflexes are symmetric at the biceps, brachioradialis, triceps, patella, and achilles bilaterally. Coordination: No dysmetria on finger to nose. No tremors noted. No drift seen. Gait unstable; presents in WC. Labs/studies: Component Latest Ref Rng & Units 07/29/2021 WBC 3.70 - 11.00 k/uL 11.99 (H) RBC 3.90 - 5.20 m/uL 4.56 Hemoglobin 11.5 - 15.5 g/dL 13.4 Hematocrit 36.0 - 46.0 % 40.9 MCV 80.0 - 100.0 fL 89.7 MCH 26.0 - 34.0 pg 29.4 MCHC 30.5 - 36.0 g/dL 32.8 RDW-CV 11.5 - 15.0 % 14.1 Platelet Count 150 - 400 k/uL 235 MPV 9.0 - 12.7 fL 12.1 Neut% % 63.8 Abs Neut (ANC) 1.45 - 7.50 k/uL 7.67 (H) Lymph% % 25.3 Abs Lymph 1.00 - 4.00 k/uL 3.03 [place]% % 7.6 Abs [place] <0.87 k/uL 0.91 (H) Eosin% % 1.8 Abs Eosin <0.46 k/uL 0.21 Baso% % 0.7 Abs Baso <0.11 k/uL 0.08 Immature Gran % % 0.8 IMMATURE GRANS (ABS) <0.10 k/uL 0.09 NRBC /100 WBC 0.0 Absolute nRBC <0.01 k/uL <0.01 DTYPE Auto Protein, Total 6.3 - 8.0 g/dL 7.3 Albumin 3.9 - 4.9 g/dL 4.1 Calcium 8.5 - 10.2 mg/dL 9.1 Bilirubin, Total 0.2 - 1.3 mg/dL 0.2 Alkaline Phosphatase 34 - 123 U/L 64 AST 13 - 35 U/L 32 ALT 7 - 38 U/L 34 Glucose 74 - 99 mg/dL 311 (H) BUN 7 - 21 mg/dL 11 Creatinine 0.58 - 0.96 mg/dL 0.69 Sodium 136 - 144 mmol/L 133 (L) Potassium 3.7 - 5.1 mmol/L 4.0 Chloride 97 - 105 mmol/L 102 CO2 22 - 30 mmol/L 21 (L) Anion Gap 9 - 18 mmol/L 10 eGFR >=60 mL/min/1.73m 113 Total Cholesterol, Nonfasting <200 mg/dL 170 Triglycerides, Nonfasting <150 mg/dL 236 (H) HDL Cholesterol, Nonfasting >39 mg/dL 31 (L) LDL Cholesterol, Nonfasting <100 mg/dL 92 Non HDL Cholesterol, Nonfasting <130 mg/dL 139 (H) VLDL Cholesterol, Nonfasting <30 mg/dL 47 (H) Total Chol/HDL Ratio, Nonfasting <5.10 mg/dL 5.48 (H) LDL/HDL Ratio, Nonfasting <2.54 mg/dL 2.97 (H) Hemoglobin A1C 4.3 - 5.6 % 10.5 (H) Estimated Average Glucose mg/dL 255 Assessment/Plan: Q05.9 Spina bifida, unspecified hydrocephalus presence, unspecified spinal region (HCC) G62.9 Neuropathy M48.061 Spinal stenosis of lumbar region without neurogenic claudication Comment: Patient presenting today for numbness to LLE. Notable history of spina bifida with surgical intervention in 2014 x2 (L3-S2 laminectomy). 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 Per pt report, last MRI of lumbar spine completed in 2015 and has not had follow up with neurosurgery since 2015. Last EMG/NCV completed in 2013. On exam, weakness noted to BLE. Sensation changes as noted above. Findings consistent with level of L4-L5. However, possible concern for peripheral polyneuropathy given bilateral symptoms throughout both feet as well as elevated A1C. Discussed completing EMG/NCV for further evaluation of peripheral neuropathy and/or lumbar radiculopathy. Will also obtain additional blood work as noted below to rule out other underlying cause of paresthesias such as thyroid disorder (given hx of thyroid cysts), autoimmune disorder, or vitamin deficiency. 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 She also notes loss of vision in L eye. She was seen in the EDand diagnosed with Manley's Palsy. Per pt report no imaging was completed and she was discharged homewith prescription for prednisone. Of note, history of L facial weakness in 2014 as well with past dx of Manley's Palsy. Today she reports facial weakness has improved, however, still having spasms to [place]. Given recurrent symptoms as well as loss of vision in L eye, will proceed with MRI of brain torule out CN lesion or stroke. She will follow up after testing is complete. Office Visit on 08/26/21 CONSULT TO NEUROLOGY Jaimee Carbajal APRN.[facility] I spent a total of 60 minutes on the date of the service which included preparing to see the patient, [id number] patient care, completing clinical documentation, obtaining and/or reviewing separately obtained history, performing a medically appropriate examination, counseling and educating the pat ient/family/caregiver and ordering medications, tests, or procedures. documented in this encounterOur [facility] Miscellaneous Notes* Telephone Encounter - Angeline Roberts RN - 08/25/2021 2:27 PM EDT SPECIALTY CARE COORDINATION FOLLOW-UP NOTE Sitzmarker study completed. Pt set up with a virtual visit at this time- agreeable to appointment date and time. Has not been contacted by coordinator- will follow up again Signature Angeline Roberts RN August 25, 2021 documented in this encounterOur Lady Of Mercy [facility]03-29-[facility]22 Miscellaneous Notes* Telephone Encounter - Angeline Roberts RN - 08/24/2021 4:21 PM EDT SPECIALTY CARE COORDINATION FOLLOW-UP NOTE Call placed to patient as requested. No answer. Message left. Just checking in to see that the sitzmarker study had been scheduled. Number left is she would liketo schedule with a [facility] facility. [phone] If getting done locally- Pt to call the local hospital or imaging centers herself to see if they can complete for her- she has the orders printed with her and the instructions Information provided on how to fax reports in and how to mail the CD images in. Checking in to see that the information systems coordinator from had contacted her to set up an appointment with Dr. Winchester or [place]- can also schedule through appointment line. Can mychart back or call back into the office with further questions. Number left. Signature Angeline Roberts RN August 24, 2021 documented in this encounterOur [facility] Of [facility]03-25-[facility]22 History of Present illness Narrative* Ragini Blunt, RT(R) - 08/20/2021 4:00 PM EDT Radiology Service Progress Note PATIENT NAME: Debby Bailon DATE OF SERVICE: August 20, 2021 TIME: 3:53 PM PATIENT IDENTITY VERIFICATION COMPLETED USING TWO (2) IDENTIFIERS: Name and Date of confirmedby patient verbally. FALL SCREENING: Has the patient had 2 falls in the last year or 1 fall with injury or currently using an Ambulatory Assistive Device (Walker, Cane, Wheelchair, Crutches, etc.)? No PATIENT GENDER DATA: Female. status: : No status: NO. PATIENT RELEVANT IMPLANT DATA REVIEWED: Not Applicable RADIOLOGY DEPARTMENT: General X-ray: Exam(s) Completed: Abdomen X-Ray: Abdomen (Colonic transit, Film #3) PERIPHERAL IV DATA: Not applicable Diabetic sensor on left shoulder/chest wall was covered with a lead apron for this exam and patientwas advised to monitor for accuracy. SIGNED BY: RT Antony(R) August 20, 2021 3:53 PM documented in this encounterOur Lady Of Mercy [facility]02-28-2022 History of Past illness Narrative* Problem Noted Date Resolved Date Type 2 diabetes mellitus wit h hyperglycemia, with long-term current use of insulin 07/26/2021 10/02/2021 Last Assessment & Plan: On glimepiride and 33 lantus, 18U aspart w/ meals and SSI prior to admission. [facility] 10.07/2021 Assessment: BS 300's, on steroids PLAN: start insulin infusion Migraine without aura and wi thout status migrainosus, not intractable 10/18/2016 02/28/2018 History of kidney stones 01/04/2016 019 Abnormal sensation of left upper and lower extre mity 08/07/2013 01/06/2016 Depressive disorder, not elsewhere classified 01/06/2016 Overview: [facility] Threatened , antepartum 06/30/2010 04/07/2011 Supervision of normal first 06/30/2010 04/07/2011 documented as of this encounter (statuses as of 10/27/2021) [facility] of Past illness Narrative* Problem Noted Date Resolved Date Type 2 diabetes mellitus wit h hyperglycemia, with long-term current use of insulin 07/26/2021 10/02/2021 Last Assessment & Plan: On glimepiride and 33 lantus, 18U aspart w/ meals and SSI prior to admission. AIC 10.5 07/2021 Assessment: BS 300's, on steroids PLAN: start insulin infusion Migraine without aura and wi thout status migrainosus, not intractable 10/18/2016 02/28/2018 History of kidney stones 01/04/2016 019 Abnormal sensation of left upper and lower extre mity 08/07/2013 01/06/2016 Depressive disorder, not elsewhere classified 01/06/2016 Overview: [facility] Threatened , antepartum 06/30/2010 04/07/2011 Supervision of normal first 06/30/2010 04/07/2011 documented as of this encounter (statuses as of 10/29/2021) [facility] of Past illness Narrative* Problem Noted Date Resolved Date Type 2 diabetes mellitus wit h hyperglycemia, with long-term current use of insulin 07/26/2021 10/02/2021 Last Assessment & Plan: On glimepiride and 33 lantus, 18U aspart w/ meals and SSI prior to admission. AIC 10.5 07/2021 Assessment: BS 300's, on steroids PLAN: start insulin infusion Migraine without aura and wi thout status migrainosus, not intractable 10/18/2016 02/28/2018 History of kidney stones 01/04/2016 019 Abnormal sensation of left upper and lower extre mity 08/07/2013 01/06/2016 Depressive disorder, not elsewhere classified 01/06/2016 Overview: [facility] Threatened , antepartum 06/30/2010 04/07/2011 Supervision of normal first 06/30/2010 04/07/2011 documented as of this encounter (statuses as of 11/10/2021) [facility] of Past illness Narrative* Problem Noted Date Resolved Date Type 2 diabetes mellitus wit h hyperglycemia, with long-term current use of insulin 07/26/2021 10/02/2021 Last Assessment & Plan: On glimepiride and 33 lantus, 18U aspart w/ meals and SSI prior to admission. AIC 10.5 07/2021 Assessment: BS 300's, on steroids PLAN: start insulin infusion Migraine without aura and wi thout status migrainosus, not intractable 10/18/2016 02/28/2018 History of kidney stones 01/04/2016 019 Abnormal sensation of left upper and lower extre mity 08/07/2013 01/06/2016 Depressive disorder, not elsewhere classified 01/06/2016 Overview: [facility] Threatened , antepartum 06/30/2010 04/07/2011 Supervision of normal first 06/30/2010 04/07/2011 documented as of this encounter (statuses as of 11/22/2021) [facility] of [facility] illness Narrative* Problem Noted Date Resolved Date Type 2 diabetes mellitus wit h hyperglycemia, with long-term current use of insulin 07/26/2021 10/02/2021 Last Assessment & Plan: On glimepiride and 33 lantus, 18U aspart w/ meals and SSI prior to admission. AIC 10.5 07/2021 Assessment: BS 300's, on steroids PLAN: start insulin infusion Migraine without aura and wi thout status migrainosus, not intractable 10/18/2016 02/28/2018 History of kidney stones 01/04/2016 019 Abnormal sensation of left upper and lower extre mity 08/07/2013 01/06/2016 Depressive disorder, not elsewhere classified 01/06/2016 Overview: [facility] Threatened , antepartum 06/30/2010 04/07/2011 Supervision of normal first 06/30/2010 04/07/2011 documented as of this encounter (statuses as of 11/26/2021) [facility] of [facility] illness Narrative* Problem Noted Date Resolved Date Type 2 diabetes mellitus wit h hyperglycemia, with long-term current use of insulin 07/26/2021 10/02/2021 Last Assessment & Plan: On glimepiride and 33 lantus, 18U aspart w/ meals and SSI prior to admission. AIC 10.5 07/2021 Assessment: BS 300's, on steroids PLAN: start insulin infusion Migraine without aura and wi thout status migrainosus, not intractable 10/18/2016 02/28/2018 History of kidney stones 01/04/2016 019 Abnormal sensation of left upper and lower extre mity 08/07/2013 01/06/2016 Depressive disorder, not elsewhere classified 01/06/2016 Overview: [facility] Threatened , antepartum 06/30/2010 04/07/2011 Supervision of normal first 06/30/2010 04/07/2011 documented as of this encounter (statuses as of 12/09/2021) [facility] of [facility] Narrative* Problem Noted Date Resolved Date Type 2 diabetes mellitus wit h hyperglycemia, with long-term current use of insulin 07/26/2021 10/02/2021 Last Assessment & Plan: On glimepiride and 33 lantus, 18U aspart w/ meals and SSI prior to admission. AIC 10.5 07/2021 Assessment: BS 300's, on steroids PLAN: start insulin infusion Migraine without aura and wi thout status migrainosus, not intractable 10/18/2016 02/28/2018 History of kidney stones 01/04/2016 019 Abnormal sensation of left upper and lower extre mity 08/07/2013 01/06/2016 Depressive disorder, not elsewhere classified 01/06/2016 Overview: [facility] Threatened , antepartum 06/30/2010 04/07/2011 Supervision of normal first 06/30/2010 04/07/2011 documented as of this encounter (statuses as of 12/20/2021) [facility] Narrative* Problem Noted Date Resolved Date Type 2 diabetes mellitus wit h hyperglycemia, with long-term current use of insulin 07/26/2021 10/02/2021 Last Assessment & Plan: On glimepiride and 33 lantus, 18U aspart w/ meals and SSI prior to admission. AIC 10.5 07/2021 Assessment: BS 300's, on steroids PLAN: start insulin infusion Migraine without aura and wi thout status migrainosus, not intractable 10/18/2016 02/28/2018 History of kidney stones 01/04/2016 019 Abnormal sensation of left upper and lower extre mity 08/07/2013 01/06/2016 Depressive disorder, not elsewhere classified 01/06/2016 Overview: [facility] Threatened , antepartum 06/30/2010 04/07/2011 Supervision of normal first 06/30/2010 04/07/2011 documented as of this encounter (statuses as of 12/28/2021) [facility] Narrative* Problem Noted Date Resolved Date Type 2 diabetes mellitus wit h hyperglycemia, with long-term current use of insulin 07/26/2021 10/02/2021 Last Assessment & Plan: On glimepiride and 33 lantus, 18U aspart w/ meals and SSI prior to admission. AIC 10.5 07/2021 Assessment: BS 300's, on steroids PLAN: start insulin infusion Migraine without aura and wi thout status migrainosus, not intractable 10/18/2016 02/28/2018 History of kidney stones 01/04/2016 019 Abnormal sensation of left upper and lower extre mity 08/07/2013 01/06/2016 Depressive disorder, not elsewhere classified 01/06/2016 Overview: [facility] Threatened , antepartum 06/30/2010 04/07/2011 Supervision of normal first 06/30/2010 04/07/2011 documented as of this encounter (statuses as of 12/31/2021) [facility] Narrative* Problem Noted Date Resolved Date Type 2 diabetes mellitus wit h hyperglycemia, with long-term current use of insulin 07/26/2021 10/02/2021 Last Assessment & Plan: On glimepiride and 33 lantus, 18U aspart w/ meals and SSI prior to admission. AIC 10.5 07/2021 Assessment: BS 300's, on steroids PLAN: start insulin infusion Migraine without aura and wi thout status migrainosus, not intractable 10/18/2016 02/28/2018 History of kidney stones 01/04/2016 019 Abnormal sensation of left upper and lower extre mity 08/07/2013 01/06/2016 Depressive disorder, not elsewhere classified 01/06/2016 Overview: [facility] Threatened , antepartum 06/30/2010 04/07/2011 Supervision of normal first 06/30/2010 04/07/2011 documented as of this encounter (statuses as of 01/13/2022) [facility] Narrative* Problem Noted Date Resolved Date Type 2 diabetes mellitus wit h hyperglycemia, with long-term current use of insulin 07/26/2021 10/02/2021 Last Assessment & Plan: On glimepiride and 33 lantus, 18U aspart w/ meals and SSI prior to admission. AIC 10.5 07/2021 Assessment: BS 300's, on steroids PLAN: start insulin infusion Migraine without aura and wi thout status migrainosus, not intractable 10/18/2016 02/28/2018 History of kidney stones 01/04/2016 019 Abnormal sensation of left upper and lower extre mity 08/07/2013 01/06/2016 Depressive disorder, not elsewhere classified 01/06/2016 Overview: [facility] Threatened , antepartum 06/30/2010 04/07/2011 Supervision of normal first 06/30/2010 04/07/2011 documented as of this encounter (statuses as of 01/14/2022) [facility] Narrative* Problem Noted Date Resolved Date Type 2 diabetes mellitus wit h hyperglycemia, with long-term current use of insulin 07/26/2021 10/02/2021 Last Assessment & Plan: On glimepiride and 33 lantus, 18U aspart w/ meals and SSI prior to admission. AIC 10.5 07/2021 Assessment: BS 300's, on steroids PLAN: start insulin infusion Migraine without aura and wi thout status migrainosus, not intractable 10/18/2016 02/28/2018 History of kidney stones 01/04/2016 019 Abnormal sensation of left upper and lower extre mity 08/07/2013 01/06/2016 Depressive disorder, not elsewhere classified 01/06/2016 Overview: [facility] Threatened , antepartum 06/30/2010 04/07/2011 Supervision of normal first 06/30/2010 04/07/2011 documented as of this encounter (statuses as of 02/08/2022) [facility] Narrative* Problem Noted Date Resolved Date Type 2 diabetes mellitus wit h hyperglycemia, with long-term current use of insulin 07/26/2021 10/02/2021 Last Assessment & Plan: On glimepiride and 33 lantus, 18U aspart w/ meals and SSI prior to admission. AIC 10.5 07/2021 Assessment: BS 300's, on steroids PLAN: start insulin infusion Migraine without aura and wi thout status migrainosus, not intractable 10/18/2016 02/28/2018 History of kidney stones 01/04/2016 019 Abnormal sensation of left upper and lower extre mity 08/07/2013 01/06/2016 Depressive disorder, not elsewhere classified 01/06/2016 Overview: [facility] Threatened , antepartum 06/30/2010 04/07/2011 Supervision of normal first 06/30/2010 04/07/2011 documented as of this encounter (statuses as of 02/09/2022) [facility] Narrative* Problem Noted Date Resolved Date Type 2 diabetes mellitus wit h hyperglycemia, with long-term current use of insulin 07/26/2021 10/02/2021 Last Assessment & Plan: On glimepiride and 33 lantus, 18U aspart w/ meals and SSI prior to admission. AIC 10.5 07/2021 Assessment: BS 300's, on steroids PLAN: start insulin infusion Migraine without aura and wi thout status migrainosus, not intractable 10/18/2016 02/28/2018 History of kidney stones 01/04/2016 019 Abnormal sensation of left upper and lower extre mity 08/07/2013 01/06/2016 Depressive disorder, not elsewhere classified 01/06/2016 Overview: [facility] Threatened , antepartum 06/30/2010 04/07/2011 Supervision of normal first 06/30/2010 04/07/2011 documented as of this encounter (statuses as of 02/10/2022) [facility] Narrative* Problem Noted Date Resolved Date Type 2 diabetes mellitus wit h hyperglycemia, with long-term current use of insulin 07/26/2021 10/02/2021 Last Assessment & Plan: On glimepiride and 33 lantus, 18U aspart w/ meals and SSI prior to admission. AIC 10.5 07/2021 Assessment: BS 300's, on steroids PLAN: start insulin infusion Migraine without aura and wi thout status migrainosus, not intractable 10/18/2016 02/28/2018 History of kidney stones 01/04/2016 019 Abnormal sensation of left upper and lower extre mity 08/07/2013 01/06/2016 Depressive disorder, not elsewhere classified 01/06/2016 Overview: [facility] Threatened , antepartum 06/30/2010 04/07/2011 Supervision of normal first 06/30/2010 04/07/2011 documented as of this encounter (statuses as of 02/15/2022) [facility] Narrative* Problem Noted Date Resolved Date Type 2 diabetes mellitus wit h hyperglycemia, with long-term current use of insulin 07/26/2021 10/02/2021 Last Assessment & Plan: On glimepiride and 33 lantus, 18U aspart w/ meals and SSI prior to admission. AIC 10.5 07/2021 Assessment: BS 300's, on steroids PLAN: start insulin infusion Migraine without aura and wi thout status migrainosus, not intractable 10/18/2016 02/28/2018 History of kidney stones 01/04/2016 019 Abnormal sensation of left upper and lower extre mity 08/07/2013 01/06/2016 Depressive disorder, not elsewhere classified 01/06/2016 Overview: [facility] Threatened , antepartum 06/30/2010 04/07/2011 Supervision of normal first 06/30/2010 04/07/2011 documented as of this encounter (statuses as of 02/19/2022) [facility] Narrative* Problem Noted Date Resolved Date Type 2 diabetes mellitus wit h hyperglycemia, with long-term current use of insulin 07/26/2021 10/02/2021 Last Assessment & Plan: On glimepiride and 33 lantus, 18U aspart w/ meals and SSI prior to admission. AIC 10.5 07/2021 Assessment: BS 300's, on steroids PLAN: start insulin infusion Migraine without aura and wi thout status migrainosus, not intractable 10/18/2016 02/28/2018 History of kidney stones 01/04/2016 019 Abnormal sensation of left upper and lower extre mity 08/07/2013 01/06/2016 Depressive disorder, not elsewhere classified 01/06/2016 Overview: [facility] Threatened , antepartum 06/30/2010 04/07/2011 Supervision of normal first 06/30/2010 04/07/2011 documented as of this encounter (statuses as of 02/24/2022) [facility] Narrative* Problem Noted Date Resolved Date Type 2 diabetes mellitus wit h hyperglycemia, with long-term current use of insulin 07/26/2021 10/02/2021 Last Assessment & Plan: On glimepiride and 33 lantus, 18U aspart w/ meals and SSI prior to admission. AIC 10.5 07/2021 Assessment: BS 300's, on steroids PLAN: start insulin infusion Migraine without aura and wi thout status migrainosus, not intractable 10/18/2016 02/28/2018 History of kidney stones 01/04/2016 019 Abnormal sensation of left upper and lower extre mity 08/07/2013 01/06/2016 Depressive disorder, not elsewhere classified 01/06/2016 Overview: [facility] Threatened , antepartum 06/30/2010 04/07/2011 Supervision of normal first 06/30/2010 04/07/2011 documented as of this encounter (statuses as of 02/28/2022) [facility] Narrative* Problem Noted Date Resolved Date Type 2 diabetes mellitus wit h hyperglycemia, with long-term current use of insulin 07/26/2021 10/02/2021 Last Assessment & Plan: On glimepiride and 33 lantus, 18U aspart w/ meals and SSI prior to admission. AIC 10.5 07/2021 Assessment: BS 300's, on steroids PLAN: start insulin infusion Migraine without aura and wi thout status migrainosus, not intractable 10/18/2016 02/28/2018 History of kidney stones 01/04/2016 019 Abnormal sensation of left upper and lower extre mity 08/07/2013 01/06/2016 Depressive disorder, not elsewhere classified 01/06/2016 Overview: [facility] Threatened , antepartum 06/30/2010 04/07/2011 Supervision of normal first 06/30/2010 04/07/2011 documented as of this encounter (statuses as of 02/28/2022) [facility] Narrative* Problem Noted Date Resolved Date Type 2 diabetes mellitus wit h hyperglycemia, with long-term current use of insulin 07/26/2021 10/02/2021 Last Assessment & Plan: On glimepiride and 33 lantus, 18U aspart w/ meals and SSI prior to admission. AIC 10.5 07/2021 Assessment: BS 300's, on steroids PLAN: start insulin infusion Migraine without aura and wi thout status migrainosus, not intractable 10/18/2016 02/28/2018 History of kidney stones 01/04/2016 019 Abnormal sensation of left upper and lower extre mity 08/07/2013 01/06/2016 Depressive disorder, not elsewhere classified 01/06/2016 Overview: [facility] Threatened , antepartum 06/30/2010 04/07/2011 Supervision of normal first 06/30/2010 04/07/2011 documented as of this encounter (statuses as of 03/15/2022) [facility] Narrative* Problem Noted Date Resolved Date Type 2 diabetes mellitus wit h hyperglycemia, with long-term current use of insulin 07/26/2021 10/02/2021 Last Assessment & Plan: On glimepiride and 33 lantus, 18U aspart w/ meals and SSI prior to admission. AIC 10.5 07/2021 Assessment: BS 300's, on steroids PLAN: start insulin infusion Migraine without aura and wi thout status migrainosus, not intractable 10/18/2016 02/28/2018 History of kidney stones 01/04/2016 019 Abnormal sensation of left upper and lower extre mity 08/07/2013 01/06/2016 Depressive disorder, not elsewhere classified 01/06/2016 Overview: [facility] Threatened , antepartum 06/30/2010 04/07/2011 Supervision of normal first 06/30/2010 04/07/2011 documented as of this encounter (statuses as of 05/10/2022) [facility] Narrative* Problem Noted Date Resolved Date Type 2 diabetes mellitus wit h hyperglycemia, with long-term current use of insulin 07/26/2021 10/02/2021 Last Assessment & Plan: On glimepiride and 33 lantus, 18U aspart w/ meals and SSI prior to admission. AIC 10.5 07/2021 Assessment: BS 300's, on steroids PLAN: start insulin infusion Migraine without aura and wi thout status migrainosus, not intractable 10/18/2016 02/28/2018 History of kidney stones 01/04/2016 019 Abnormal sensation of left upper and lower extre mity 08/07/2013 01/06/2016 Depressive disorder, not elsewhere classified 01/06/2016 Overview: [facility] Threatened , antepartum 06/30/2010 04/07/2011 Supervision of normal first 06/30/2010 04/07/2011 documented as of this encounter (statuses as of 06/08/2022) [facility] Narrative* Problem Noted Date Resolved Date Type 2 diabetes mellitus wit h hyperglycemia, with long-term current use of insulin 07/26/2021 10/02/2021 Last Assessment & Plan: On glimepiride and 33 lantus, 18U aspart w/ meals and SSI prior to admission. AIC 10.5 07/2021 Assessment: BS 300's, on steroids PLAN: start insulin infusion Migraine without aura and wi thout status migrainosus, not intractable 10/18/2016 02/28/2018 History of kidney stones 01/04/2016 019 Abnormal sensation of left upper and lower extre mity 08/07/2013 01/06/2016 Depressive disorder, not elsewhere classified 01/06/2016 Overview: [facility] Threatened , antepartum 06/30/2010 04/07/2011 Supervision of normal first 06/30/2010 04/07/2011 documented as of this encounter (statuses as of 06/16/2022) [facility] Narrative* Problem Noted Date Resolved Date Type 2 diabetes mellitus wit h hyperglycemia, with long-term current use of insulin 07/26/2021 10/02/2021 Last Assessment & Plan: On glimepiride and 33 lantus, 18U aspart w/ meals and SSI prior to admission. AIC 10.5 07/2021 Assessment: BS 300's, on steroids PLAN: start insulin infusion Migraine without aura and wi thout status migrainosus, not intractable 10/18/2016 02/28/2018 History of kidney stones 01/04/2016 019 Abnormal sensation of left upper and lower extre mity 08/07/2013 01/06/2016 Depressive disorder, not elsewhere classified 01/06/2016 Overview: [facility] Threatened , antepartum 06/30/2010 04/07/2011 Supervision of normal first 06/30/2010 04/07/2011 documented as of this encounter (statuses as of 07/06/2022) [facility] Narrative* Problem Noted Date Resolved Date Type 2 diabetes mellitus wit h hyperglycemia, with long-term current use of insulin 07/26/2021 10/02/2021 Last Assessment & Plan: On glimepiride and 33 lantus, 18U aspart w/ meals and SSI prior to admission. AIC 10.5 07/2021 Assessment: BS 300's, on steroids PLAN: start insulin infusion Migraine without aura and wi thout status migrainosus, not intractable 10/18/2016 02/28/2018 History of kidney stones 01/04/2016 019 Abnormal sensation of left upper and lower extre mity 08/07/2013 01/06/2016 Depressive disorder, not elsewhere classified 01/06/2016 Overview: [facility] Threatened , antepartum 06/30/2010 04/07/2011 Supervision of normal first 06/30/2010 04/07/2011 documented as of this encounter (statuses as of 07/19/2022) [facility]02-28-2022 History of Past illness Narrative* Problem Noted Date Resolved Date Type 2 diabetes mellitus wit h hyperglycemia, with long-term current use of insulin 07/26/2021 10/02/2021 Last Assessment & Plan: On glimepiride and 33 lantus, 18U aspart w/ meals and SSI prior to admission. [facility] 10.5 07/2021 Assessment: BS 300's, on steroids PLAN: start insulin infusion Migraine without aura and wi thout status migrainosus, not intractable 10/18/2016 02/28/2018 History of kidney stones 01/04/2016 019 Abnormal sensation of left upper and lower extre mity 08/07/2013 01/06/2016 Depressive disorder, not elsewhere classified 01/06/2016 Overview: [facility] Threatened , antepartum 06/30/2010 04/07/2011 Supervision of normal first 06/30/2010 04/07/2011 documented as of this encounter (statuses as of 07/20/2022) [facility]02-28-2022 History of Past illness Narrative* Problem Noted Date Resolved Date Type 2 diabetes mellitus wit h hyperglycemia, with long-term current use of insulin 07/26/2021 10/02/2021 Last Assessment & Plan: On glimepiride and 33 lantus, 18U aspart w/ meals and SSI prior to admission. [facility] 10.5 07/2021 Assessment: BS 300's, on steroids PLAN: start insulin infusion Migraine without aura and wi thout status migrainosus, not intractable 10/18/2016 02/28/2018 History of kidney stones 01/04/2016 019 Abnormal sensation of left upper and lower extre mity 08/07/2013 01/06/2016 Depressive disorder, not elsewhere classified 01/06/2016 Overview: [facility] Threatened , antepartum 06/30/2010 04/07/2011 Supervision of normal first 06/30/2010 04/07/2011 documented as of this encounter (statuses as of 07/21/2022) [facility]02-[facility]-2022 History of Past illness Narrative* Problem Noted Date Resolved Date Type 2 diabetes mellitus wit h hyperglycemia, with long-term current use of insulin 07/26/2021 10/02/2021 Last Assessment & Plan: On glimepiride and 33 lantus, 18U aspart w/ meals and SSI prior to admission. [facility] 10.5 07/2021 Assessment: BS 300's, on steroids PLAN: start insulin infusion Migraine without aura and wi thout status migrainosus, not intractable 10/18/2016 02/28/2018 History of kidney stones 01/04/2016 019 Abnormal sensation of left upper and lower extre mity 08/07/2013 01/06/2016 Depressive disorder, not elsewhere classified 01/06/2016 Overview: [facility] Threatened , antepartum 06/30/2010 04/07/2011 Supervision of normal first 06/30/2010 04/07/2011 documented as of this encounter (statuses as of 07/25/2022) [facility]2022 History of Past illness Narrative* Problem Noted Date Resolved Date Type 2 diabetes mellitus wit h hyperglycemia, with long-term current use of insulin 07/26/2021 10/02/2021 Last Assessment & Plan: On glimepiride and 33 lantus, 18U aspart w/ meals and SSI prior to admission. [facility] 10.5 07/2021 Assessment: BS 300's, on steroids PLAN: start insulin infusion Migraine without aura and wi thout status migrainosus, not intractable 10/18/2016 02/28/2018 History of kidney stones 01/04/2016 019 Abnormal sensation of left upper and lower extre mity 08/07/2013 01/06/2016 Depressive disorder, not elsewhere classified 01/06/2016 Overview: [facility] Threatened , antepartum 06/30/2010 04/07/2011 Supervision of normal first 06/30/2010 04/07/2011 documented as of this encounter (statuses as of 08/03/2022) [facility]-2022 History of Past illness Narrative* Problem Noted Date Resolved Date Type 2 diabetes mellitus wit h hyperglycemia, with long-term current use of insulin 07/26/2021 10/02/2021 Last Assessment & Plan: On glimepiride and 33 lantus, 18U aspart w/ meals and SSI prior to admission. [facility] 10.5 07/2021 Assessment: BS 300's, on steroids PLAN: start insulin infusion Migraine without aura and wi thout status migrainosus, not intractable 10/18/2016 02/28/2018 History of kidney stones 01/04/2016 019 Abnormal sensation of left upper and lower extre mity 08/07/2013 01/06/2016 Depressive disorder, not elsewhere classified 01/06/2016 Overview: [facility] Threatened , antepartum 06/30/2010 04/07/2011 Supervision of normal first 06/30/2010 04/07/2011 documented as of this encounter (statuses as of 08/17/2022) [facility]2022 History of Past illness Narrative* Problem Noted Date Resolved Date Type 2 diabetes mellitus wit h hyperglycemia, with long-term current use of insulin 07/26/2021 10/02/2021 Last Assessment & Plan: On glimepiride and 33 lantus, 18U aspart w/ meals and SSI prior to admission. [facility] 10.5 07/2021 Assessment: BS 300's, on steroids PLAN: start insulin infusion Migraine without aura and wi thout status migrainosus, not intractable 10/18/2016 02/28/2018 History of kidney stones 01/04/2016 019 Abnormal sensation of left upper and lower extre mity 08/07/2013 01/06/2016 Depressive disorder, not elsewhere classified 01/06/2016 Overview: [facility] Threatened , antepartum 06/30/2010 04/07/2011 Supervision of normal first 06/30/2010 04/07/2011 documented as of this encounter (statuses as of 08/31/2022) [facility]02[facility]-2022 History of Past illness Narrative* Problem Noted Date Resolved Date Type 2 diabetes mellitus wit h hyperglycemia, with long-term current use of insulin 07/26/2021 10/02/2021 Last Assessment & Plan: On glimepiride and 33 lantus, 18U aspart w/ meals and SSI prior to admission. [facility] 10.5 07/2021 Assessment: BS 300's, on steroids PLAN: start insulin infusion Migraine without aura and wi thout status migrainosus, not intractable 10/18/2016 02/28/2018 History of kidney stones 01/04/2016 019 Abnormal sensation of left upper and lower extre mity 08/07/2013 01/06/2016 Depressive disorder, not elsewhere classified 01/06/2016 Overview: [facility] Threatened , antepartum 06/30/2010 04/07/2011 Supervision of normal first 06/30/2010 04/07/2011 documented as of this encounter (statuses as of 09/03/2022) [facility]2022 History of Past illness Narrative* Problem Noted Date Resolved Date Type 2 diabetes mellitus wit h hyperglycemia, with long-term current use of insulin 07/26/2021 10/02/2021 Last Assessment & Plan: On glimepiride and 33 lantus, 18U aspart w/ meals and SSI prior to admission. [facility] 10.5 07/2021 Assessment: BS 300's, on steroids PLAN: start insulin infusion Migraine without aura and wi thout status migrainosus, not intractable 10/18/2016 02/28/2018 History of kidney stones 01/04/2016 019 Abnormal sensation of left upper and lower extre mity 08/07/2013 01/06/2016 Depressive disorder, not elsewhere classified 01/06/2016 Overview: [facility] Threatened , antepartum 06/30/2010 04/07/2011 Supervision of normal first 06/30/2010 04/07/2011 documented as of this encounter (statuses as of 09/07/2022) [facility]02-[facility]-2022 History of Past illness Narrative* Problem Noted Date Resolved Date Type 2 diabetes mellitus wit h hyperglycemia, with long-term current use of insulin 07/26/2021 10/02/2021 Last Assessment & Plan: On glimepiride and 33 lantus, 18U aspart w/ meals and SSI prior to admission. [facility] 10.5 07/2021 Assessment: BS 300's, on steroids PLAN: start insulin infusion Migraine without aura and wi thout status migrainosus, not intractable 10/18/2016 02/28/2018 History of kidney stones 01/04/2016 019 Abnormal sensation of left upper and lower extre mity 08/07/2013 01/06/2016 Depressive disorder, not elsewhere classified 01/06/2016 Overview: [facility] Threatened , antepartum 06/30/2010 04/07/2011 Supervision of normal first 06/30/2010 04/07/2011 documented as of this encounter (statuses as of 10/05/2022) [facility]2022 History of Past illness Narrative* Problem Noted Date Resolved Date Type 2 diabetes mellitus wit h hyperglycemia, with long-term current use of insulin 07/26/2021 10/02/2021 Last Assessment & Plan: On glimepiride and 33 lantus, 18U aspart w/ meals and SSI prior to admission. [facility] 10.5 07/2021 Assessment: BS 300's, on steroids PLAN: start insulin infusion Migraine without aura and wi thout status migrainosus, not intractable 10/18/2016 02/28/2018 History of kidney stones 01/04/2016 019 Abnormal sensation of left upper and lower extre mity 08/07/2013 01/06/2016 Depressive disorder, not elsewhere classified 01/06/2016 Overview: [facility] Threatened , antepartum 06/30/2010 04/07/2011 Supervision of normal first 06/30/2010 04/07/2011 documented as of this encounter (statuses as of 10/08/2022) [facility]2022 History of Past illness Narrative* Problem Noted Date Resolved Date Type 2 diabetes mellitus wit h hyperglycemia, with long-term current use of insulin 07/26/2021 10/02/2021 Last Assessment & Plan: On glimepiride and 33 lantus, 18U aspart w/ meals and SSI prior to admission. [facility] 10.5 07/2021 Assessment: BS 300's, on steroids PLAN: start insulin infusion Migraine without aura and wi thout status migrainosus, not intractable 10/18/2016 02/28/2018 History of kidney stones 01/04/2016 019 Abnormal sensation of left upper and lower extre mity 08/07/2013 01/06/2016 Depressive disorder, not elsewhere classified 01/06/2016 Overview: [facility] Threatened , antepartum 06/30/2010 04/07/2011 Supervision of normal first 06/30/2010 04/07/2011 documented as of this encounter (statuses as of 11/02/2022) [facility]2022 History of Past illness Narrative* Problem Noted Date Resolved Date Type 2 diabetes mellitus wit h hyperglycemia, with long-term current use of insulin 07/26/2021 10/02/2021 Last Assessment & Plan: On glimepiride and 33 lantus, 18U aspart w/ meals and SSI prior to admission. [facility] 10.5 07/2021 Assessment: BS 300's, on steroids PLAN: start insulin infusion Migraine without aura and wi thout status migrainosus, not intractable 10/18/2016 02/28/2018 History of kidney stones 01/04/2016 019 Abnormal sensation of left upper and lower extre mity 08/07/2013 01/06/2016 Depressive disorder, not elsewhere classified 01/06/2016 Overview: [facility] Threatened , antepartum 06/30/2010 04/07/2011 Supervision of normal first 06/30/2010 04/07/2011 documented as of this encounter (statuses as of 11/02/2022) [facility]02[facility]2022 History of Past illness Narrative* Problem Noted Date Resolved Date Type 2 diabetes mellitus wit h hyperglycemia, with long-term current use of insulin 07/26/2021 10/02/2021 Last Assessment & Plan: On glimepiride and 33 lantus, 18U aspart w/ meals and SSI prior to admission. [facility] 10.5 07/2021 Assessment: BS 300's, on steroids PLAN: start insulin infusion Migraine without aura and wi thout status migrainosus, not intractable 10/18/2016 02/28/2018 History of kidney stones 01/04/2016 019 Abnormal sensation of left upper and lower extre mity 08/07/2013 01/06/2016 Depressive disorder, not elsewhere classified 01/06/2016 Overview: [facility] Threatened , antepartum 06/30/2010 04/07/2011 Supervision of normal first 06/30/2010 04/07/2011 documented as of this encounter (statuses as of 11/15/2022) [facility]02[facility]2022 History of Past illness Narrative* Problem Noted Date Resolved Date Type 2 diabetes mellitus wit h hyperglycemia, with long-term current use of insulin 07/26/2021 10/02/2021 Last Assessment & Plan: On glimepiride and 33 lantus, 18U aspart w/ meals and SSI prior to admission. [facility] 10.5 07/2021 Assessment: BS 300's, on steroids PLAN: start insulin infusion Migraine without aura and wi thout status migrainosus, not intractable 10/18/2016 02/28/2018 History of kidney stones 01/04/2016 019 Abnormal sensation of left upper and lower extre mity 08/07/2013 01/06/2016 Depressive disorder, not elsewhere classified 01/06/2016 Overview: [facility] Threatened , antepartum 06/30/2010 04/07/2011 Supervision of normal first 06/30/2010 04/07/2011 documented as of this encounter (statuses as of 11/16/2022) [facility]2022 History of Past illness Narrative* Problem Noted Date Resolved Date Type 2 diabetes mellitus wit h hyperglycemia, with long-term current use of insulin 07/26/2021 10/02/2021 Last Assessment & Plan: On glimepiride and 33 lantus, 18U aspart w/ meals and SSI prior to admission. [facility] 10.5 07/2021 Assessment: BS 300's, on steroids PLAN: start insulin infusion Migraine without aura and wi thout status migrainosus, not intractable 10/18/2016 02/28/2018 History of kidney stones 01/04/2016 019 Abnormal sensation of left upper and lower extre mity 08/07/2013 01/06/2016 Depressive disorder, not elsewhere classified 01/06/2016 Overview: [facility] Threatened , antepartum 06/30/2010 04/07/2011 Supervision of normal first 06/30/2010 04/07/2011 documented as of this encounter (statuses as of 11/19/2022) [facility]2022 History of Past illness Narrative* Problem Noted Date Resolved Date Type 2 diabetes mellitus wit h hyperglycemia, with long-term current use of insulin 07/26/2021 10/02/2021 Last Assessment & Plan: On glimepiride and 33 lantus, 18U aspart w/ meals and SSI prior to admission. [facility] 10.5 07/2021 Assessment: BS 300's, on steroids PLAN: start insulin infusion Migraine without aura and wi thout status migrainosus, not intractable 10/18/2016 02/28/2018 History of kidney stones 01/04/2016 019 Abnormal sensation of left upper and lower extre mity 08/07/2013 01/06/2016 Depressive disorder, not elsewhere classified 01/06/2016 Overview: [facility] Threatened , antepartum 06/30/2010 04/07/2011 Supervision of normal first 06/30/2010 04/07/2011 documented as of this encounter (statuses as of 11/19/2022) [facility]2022 History of Past illness Narrative* Problem Noted Date Diagnosed Date Resolved Date Type 2 diabetes mellitus wit h hyperglycemia, with long-term current use of insulin 07/26/2021 Last Assessment & Plan: On glimepiride and 33 lantus, 18U aspart w/ meals and SSI prior to admission. [facility] 10.5 07/2021 Assessment: BS 300's, on steroids PLAN: start insulin infusion Migraine without aura and wi thout status migrainosus, not intractable 10/18/2016 02/28/2018 History of kidney stones 01/04/201610/2018 Abnormal sensation of left u pper and lower extremity 08/07/2013 01/06/2016 Depressive disorder, not elsewhere classified 11/28/1901/06/2016 Overview: [facility] Threatened , antepartum 06/30/2010 04/07/2011 Supervision of normal first 06/30/2010 04/07/2011 documented as of this encounter (statuses as of 12/14/2022) [facility]-2022 History of Past illness Narrative* Problem Noted Date Diagnosed Date Resolved Date Type 2 diabetes mellitus wit h hyperglycemia, with long-term current use of insulin 07/26/2021 Last Assessment & Plan: On glimepiride and 33 lantus, 18U aspart w/ meals and SSI prior to admission. [facility] 10.5 07/2021 Assessment: BS 300's, on steroids PLAN: start insulin infusion Migraine without aura and wi thout status migrainosus, not intractable 10/18/2016 02/28/2018 History of kidney stones 01/04/201610/2018 Abnormal sensation of left u pper and lower extremity 08/07/2013 01/06/2016 Depressive disorder, not elsewhere classified 11/28/1901/06/2016 Overview: [facility] Threatened , antepartum 06/30/2010 04/07/2011 Supervision of normal first 06/30/2010 04/07/2011 documented as of this encounter (statuses as of 12/29/2022) [facility]2022 History of Past illness Narrative* Problem Noted Date Diagnosed Date Resolved Date Type 2 diabetes mellitus wit h hyperglycemia, with long-term current use of insulin 07/26/2021 Last Assessment & Plan: On glimepiride and 33 lantus, 18U aspart w/ meals and SSI prior to admission. [facility] 10.5 07/2021 Assessment: BS 300's, on steroids PLAN: start insulin infusion Migraine without aura and wi thout status migrainosus, not intractable 10/18/2016 02/28/2018 History of kidney stones 01/04/201610/2018 Abnormal sensation of left u pper and lower extremity 08/07/2013 01/06/2016 Depressive disorder, not elsewhere classified 11/28/1901/06/2016 Overview: [facility] Threatened , antepartum 06/30/2010 04/07/2011 Supervision of normal first 06/30/2010 04/07/2011 documented as of this encounter (statuses as of 01/16/2023) [facility] History of Past illness Narrative* Problem Noted Date Diagnosed Date Resolved Date Type 2 diabetes mellitus wit h hyperglycemia, with long-term current use of insulin 07/26/2021 Last Assessment & Plan: On glimepiride and 33 lantus, 18U aspart w/ meals and SSI prior to admission. [facility] 10.5 07/2021 Assessment: BS 300's, on steroids PLAN: start insulin infusion Migraine without aura and wi thout status migrainosus, not intractable 10/18/2016 02/28/2018 History of kidney stones 01/04/201610/2018 Abnormal sensation of left u pper and lower extremity 08/07/2013 01/06/2016 Depressive disorder, not elsewhere classified 11/28/19 12 01/06/2016 Overview: [facility] Threatened , antepartum 06/30/2010 04/07/2011 Supervision of normal first 06/30/2010 04/07/2011 documented as of this encounter (statuses as of 01/19/2023) [facility] History of Past illness Narrative* Problem Noted Date Diagnosed Date Resolved Date Type 2 diabetes mellitus wit h hyperglycemia, with long-term current use of insulin 07/26/2021 Last Assessment & Plan: On glimepiride and 33 lantus, 18U aspart w/ meals and SSI prior to admission. [facility] 10.5 07/2021 Assessment: BS 300's, on steroids PLAN: start insulin infusion Migraine without aura and wi thout status migrainosus, not intractable 10/18/2016 02/28/2018 History of kidney stones 01/04/201610/2018 Abnormal sensation of left u pper and lower extremity 08/07/2013 01/06/2016 Depressive disorder, not elsewhere classified 11/28/1901/06/2016 Overview: [facility] Threatened , antepartum 06/30/2010 04/07/2011 Supervision of normal first 06/30/2010 04/07/2011 documented as of this encounter (statuses as of 02/20/2023) [facility] History of Past illness Narrative* Problem Noted Date Diagnosed Date Resolved Date Type 2 diabetes mellitus wit h hyperglycemia, with long-term current use of insulin 07/26/2021 Last Assessment & Plan: On glimepiride and 33 lantus, 18U aspart w/ meals and SSI prior to admission. [facility] 10.5 07/2021 Assessment: BS 300's, on steroids PLAN: start insulin infusion Migraine without aura and wi thout status migrainosus, not intractable 10/18/2016 02/28/2018 History of kidney stones 01/04/201610/2018 Abnormal sensation of left u pper and lower extremity 08/07/2013 01/06/2016 Depressive disorder, not elsewhere classified 11/28/1901/06/2016 Overview: [facility] Threatened , antepartum 06/30/2010 04/07/2011 Supervision of normal first 06/30/2010 04/07/2011 documented as of this encounter (statuses as of 03/01/2023) [facility] History of Past illness Narrative* Problem Noted Date Diagnosed Date Resolved Date Type 2 diabetes mellitus wit h hyperglycemia, with long-term current use of insulin 07/26/2021 Last Assessment & Plan: On glimepiride and 33 lantus, 18U aspart w/ meals and SSI prior to admission. [facility] 10.5 07/2021 Assessment: BS 300's, on steroids PLAN: start insulin infusion Migraine without aura and wi thout status migrainosus, not intractable 10/18/2016 02/28/2018 History of kidney stones 01/04/201610/2018 Abnormal sensation of left u pper and lower extremity 08/07/2013 01/06/2016 Depressive disorder, not elsewhere classified 11/28/1901/06/2016 Overview: [facility] Threatened , antepartum 06/30/2010 04/07/2011 Supervision of normal first 06/30/2010 04/07/2011 documented as of this encounter (statuses as of 03/08/2023) [facility] History of Past illness Narrative* Problem Noted Date Diagnosed Date Resolved Date Type 2 diabetes mellitus wit h hyperglycemia, with long-term current use of insulin 07/26/2021 Last Assessment & Plan: On glimepiride and 33 lantus, 18U aspart w/ meals and SSI prior to admission. [facility] 10.5 07/2021 Assessment: BS 300's, on steroids PLAN: start insulin infusion Migraine without aura and wi thout status migrainosus, not intractable 10/18/2016 02/28/2018 History of kidney stones 01/04/201610/2018 Abnormal sensation of left u pper and lower extremity 08/07/2013 01/06/2016 Depressive disorder, not elsewhere classified 11/28/1901/06/2016 Overview: [facility] Threatened , antepartum 06/30/2010 04/07/2011 Supervision of normal first 06/30/2010 04/07/2011 documented as of this encounter (statuses as of 04/05/2023) [facility] History of Past illness Narrative* Problem Noted Date Diagnosed Date Resolved Date Type 2 diabetes mellitus wit h hyperglycemia, with long-term current use of insulin 07/26/2021 Last Assessment & Plan: On glimepiride and 33 lantus, 18U aspart w/ meals and SSI prior to admission. [facility] 10.5 07/2021 Assessment: BS 300's, on steroids PLAN: start insulin infusion Migraine without aura and wi thout status migrainosus, not intractable 10/18/2016 02/28/2018 History of kidney stones 01/04/201610/2018 Abnormal sensation of left u pper and lower extremity 08/07/2013 01/06/2016 Depressive disorder, not elsewhere classified 11/28/1901/06/2016 Overview: [facility] Threatened , antepartum 06/30/2010 04/07/2011 Supervision of normal first 06/30/2010 04/07/2011 documented as of this encounter (statuses as of 04/08/2023) [facility] History of Past illness Narrative* Problem Noted Date Diagnosed Date Resolved Date Type 2 diabetes mellitus wit h hyperglycemia, with long-term current use of insulin 07/26/2021 Last Assessment & Plan: On glimepiride and 33 lantus, 18U aspart w/ meals and SSI prior to admission. [facility] 10.5 07/2021 Assessment: BS 300's, on steroids PLAN: start insulin infusion Migraine without aura and wi thout status migrainosus, not intractable 10/18/2016 02/28/2018 History of kidney stones 01/04/201610/2018 Abnormal sensation of left u pper and lower extremity 08/07/2013 01/06/2016 Depressive disorder, not elsewhere classified 11/28/1901/06/2016 Overview: [facility] Threatened , antepartum 06/30/2010 04/07/2011 Supervision of normal first 06/30/2010 04/07/2011 documented as of this encounter (statuses as of 04/13/2023) [facility] History of Past illness Narrative* Problem Noted Date Diagnosed Date Resolved Date Type 2 diabetes mellitus wit h hyperglycemia, with long-term current use of insulin 07/26/2021 Last Assessment & Plan: On glimepiride and 33 lantus, 18U aspart w/ meals and SSI prior to admission. [facility] 10.5 07/2021 Assessment: BS 300's, on steroids PLAN: start insulin infusion Migraine without aura and wi thout status migrainosus, not intractable 10/18/2016 02/28/2018 History of kidney stones 01/04/201610/2018 Abnormal sensation of left u pper and lower extremity 08/07/2013 01/06/2016 Depressive disorder, not elsewhere classified 11/28/1901/06/2016 Overview: [facility] Threatened , antepartum 06/30/2010 04/07/2011 Supervision of normal first 06/30/2010 04/07/2011 documented as of this encounter (statuses as of 04/13/2023) [facility] History of Past illness Narrative* Problem Noted Date Diagnosed Date Resolved Date Type 2 diabetes mellitus wit h hyperglycemia, with long-term current use of insulin 07/26/2021 Last Assessment & Plan: On glimepiride and 33 lantus, 18U aspart w/ meals and SSI prior to admission. [facility] 10.5 07/2021 Assessment: BS 300's, on steroids PLAN: start insulin infusion Migraine without aura and wi thout status migrainosus, not intractable 10/18/2016 02/28/2018 History of kidney stones 01/04/201610/2018 Abnormal sensation of left u pper and lower extremity 08/07/2013 01/06/2016 Depressive disorder, not elsewhere classified 11/28/1901/06/2016 Overview: [facility] Threatened , antepartum 06/30/2010 04/07/2011 Supervision of normal first 06/30/2010 04/07/2011 documented as of this encounter (statuses as of 04/25/2023) [facility]02-28-2022 History of Past illness Narrative* Problem Noted Date Diagnosed Date Resolved Date Type 2 diabetes mellitus wit h hyperglycemia, with long-term current use of insulin 07/26/2021 Last Assessment & Plan: On glimepiride and 33 lantus, 18U aspart w/ meals and SSI prior to admission. [facility] 10.5 07/2021 Assessment: BS 300's, on steroids PLAN: start insulin infusion Migraine without aura and wi thout status migrainosus, not intractable 10/18/2016 02/28/2018 History of kidney stones 01/04/201610/2018 Abnormal sensation of left u pper and lower extremity 08/07/2013 01/06/2016 Depressive disorder, not elsewhere classified 11/28/1901/06/2016 Overview: [facility] Threatened , antepartum 06/30/2010 04/07/2011 Supervision of normal first 06/30/2010 04/07/2011 documented as of this encounter (statuses as of 05/02/2023) [facility]02-[facility]2022 History of Past illness Narrative* Problem Noted Date Diagnosed Date Resolved Date Type 2 diabetes mellitus wit h hyperglycemia, with long-term current use of insulin 07/26/2021 Last Assessment & Plan: On glimepiride and 33 lantus, 18U aspart w/ meals and SSI prior to admission. [facility] 10.5 07/2021 Assessment: BS 300's, on steroids PLAN: start insulin infusion Migraine without aura and wi thout status migrainosus, not intractable 10/18/2016 02/28/2018 History of kidney stones 01/04/201610/2018 Abnormal sensation of left u pper and lower extremity 08/07/2013 01/06/2016 Depressive disorder, not elsewhere classified 11/28/1901/06/2016 Overview: [facility] Threatened , antepartum 06/30/2010 04/07/2011 Supervision of normal first 06/30/2010 04/07/2011 documented as of this encounter (statuses as of 05/03/2023) [facility] History of Past illness Narrative* Problem Noted Date Diagnosed Date Resolved Date Type 2 diabetes mellitus wit h hyperglycemia, with long-term current use of insulin 07/26/2021 Last Assessment & Plan: On glimepiride and 33 lantus, 18U aspart w/ meals and SSI prior to admission. [facility] 10.5 07/2021 Assessment: BS 300's, on steroids PLAN: start insulin infusion Migraine without aura and wi thout status migrainosus, not intractable 10/18/2016 02/28/2018 History of kidney stones 01/04/201610/2018 Abnormal sensation of left u pper and lower extremity 08/07/2013 01/06/2016 Depressive disorder, not elsewhere classified 11/28/1901/06/2016 Overview: [facility] Threatened , antepartum 06/30/2010 04/07/2011 Supervision of normal first 06/30/2010 04/07/2011 documented as of this encounter (statuses as of 05/03/2023) [facility] History of Past illness Narrative* Problem Noted Date Diagnosed Date Resolved Date Type 2 diabetes mellitus wit h hyperglycemia, with long-term current use of insulin 07/26/2021 Last Assessment & Plan: On glimepiride and 33 lantus, 18U aspart w/ meals and SSI prior to admission. [facility] 10.5 07/2021 Assessment: BS 300's, on steroids PLAN: start insulin infusion Migraine without aura and wi thout status migrainosus, not intractable 10/18/2016 02/28/2018 History of kidney stones 01/04/201610/2018 Abnormal sensation of left u pper and lower extremity 08/07/2013 01/06/2016 Depressive disorder, not elsewhere classified 11/28/1901/06/2016 Overview: [facility] Threatened , antepartum 06/30/2010 04/07/2011 Supervision of normal first 06/30/2010 04/07/2011 documented as of this encounter (statuses as of 05/08/2023) [facility] History of Past illness Narrative* Problem Noted Date Diagnosed Date Resolved Date Type 2 diabetes mellitus wit h hyperglycemia, with long-term current use of insulin 07/26/2021 Last Assessment & Plan: On glimepiride and 33 lantus, 18U aspart w/ meals and SSI prior to admission. [facility] 10.5 07/2021 Assessment: BS 300's, on steroids PLAN: start insulin infusion Migraine without aura and wi thout status migrainosus, not intractable 10/18/2016 02/28/2018 History of kidney stones 01/04/201610/2018 Abnormal sensation of left u pper and lower extremity 08/07/2013 01/06/2016 Depressive disorder, not elsewhere classified 11/28/1901/06/2016 Overview: [facility] Threatened , antepartum 06/30/2010 04/07/2011 Supervision of normal first 06/30/2010 04/07/2011 documented as of this encounter (statuses as of 05/09/2023) [facility] History of Past illness Narrative* Problem Noted Date Diagnosed Date Resolved Date Type 2 diabetes mellitus wit h hyperglycemia, with long-term current use of insulin 07/26/2021 Last Assessment & Plan: On glimepiride and 33 lantus, 18U aspart w/ meals and SSI prior to admission. [facility] 10.5 07/2021 Assessment: BS 300's, on steroids PLAN: start insulin infusion Migraine without aura and wi thout status migrainosus, not intractable 10/18/2016 02/28/2018 History of kidney stones 01/04/201610/2018 Abnormal sensation of left u pper and lower extremity 08/07/2013 01/06/2016 Depressive disorder, not elsewhere classified 11/28/1901/06/2016 Overview: [facility] Threatened , antepartum 06/30/2010 04/07/2011 Supervision of normal first 06/30/2010 04/07/2011 documented as of this encounter (statuses as of 07/05/2023) [facility] History of Past illness Narrative* Problem Noted Date Diagnosed Date Resolved Date Type 2 diabetes mellitus wit h hyperglycemia, with long-term current use of insulin 07/26/2021 Last Assessment & Plan: On glimepiride and 33 lantus, 18U aspart w/ meals and SSI prior to admission. [facility] 10.5 07/2021 Assessment: BS 300's, on steroids PLAN: start insulin infusion Migraine without aura and wi thout status migrainosus, not intractable 10/18/2016 02/28/2018 History of kidney stones 01/04/201610/2018 Abnormal sensation of left u pper and lower extremity 08/07/2013 01/06/2016 Depressive disorder, not elsewhere classified 11/28/1901/06/2016 Overview: [facility] Threatened , antepartum 06/30/2010 04/07/2011 Supervision of normal first 06/30/2010 04/07/2011 documented as of this encounter (statuses as of 07/18/2023) [facility] History of Past illness Narrative* Problem Noted Date Diagnosed Date Resolved Date Type 2 diabetes mellitus wit h hyperglycemia, with long-term current use of insulin 07/26/2021 Last Assessment & Plan: On glimepiride and 33 lantus, 18U aspart w/ meals and SSI prior to admission. [facility] 10.5 07/2021 Assessment: BS 300's, on steroids PLAN: start insulin infusion Migraine without aura and wi thout status migrainosus, not intractable 10/18/2016 02/28/2018 History of kidney stones 01/04/201610/2018 Abnormal sensation of left u pper and lower extremity 08/07/2013 01/06/2016 Depressive disorder, not elsewhere classified 11/28/1901/06/2016 Overview: [facility] Threatened , antepartum 06/30/2010 04/07/2011 Supervision of normal first 06/30/2010 04/07/2011 documented as of this encounter (statuses as of 07/26/2023) [facility] History of Past illness Narrative* Problem Noted Date Diagnosed Date Resolved Date Type 2 diabetes mellitus wit h hyperglycemia, with long-term current use of insulin 07/26/2021 Last Assessment & Plan: On glimepiride and 33 lantus, 18U aspart w/ meals and SSI prior to admission. [facility] 10.5 07/2021 Assessment: BS 300's, on steroids PLAN: start insulin infusion Migraine without aura and wi thout status migrainosus, not intractable 10/18/2016 02/28/2018 History of kidney stones 01/04/201610/2018 Abnormal sensation of left u pper and lower extremity 08/07/2013 01/06/2016 Depressive disorder, not elsewhere classified 11/28/1901/06/2016 Overview: [facility] Threatened , antepartum 06/30/2010 04/07/2011 Supervision of normal first 06/30/2010 04/07/2011 documented as of this encounter (statuses as of 08/14/2023) [facility] History of Past illness Narrative* Problem Noted Date Diagnosed Date Resolved Date Type 2 diabetes mellitus wit h hyperglycemia, with long-term current use of insulin 07/26/2021 Last Assessment & Plan: On glimepiride and 33 lantus, 18U aspart w/ meals and SSI prior to admission. [facility] 10.5 07/2021 Assessment: BS 300's, on steroids PLAN: start insulin infusion Migraine without aura and wi thout status migrainosus, not intractable 10/18/2016 02/28/2018 History of kidney stones 01/04/201610/2018 Abnormal sensation of left u pper and lower extremity 08/07/2013 01/06/2016 Depressive disorder, not elsewhere classified 11/28/1901/06/2016 Overview: [facility] Threatened , antepartum 06/30/2010 04/07/2011 Supervision of normal first 06/30/2010 04/07/2011 documented as of this encounter (statuses as of 08/17/2023) [facility] History of Past illness Narrative* Problem Noted Date Diagnosed Date Resolved Date Type 2 diabetes mellitus wit h hyperglycemia, with long-term current use of insulin 07/26/2021 Last Assessment & Plan: On glimepiride and 33 lantus, 18U aspart w/ meals and SSI prior to admission. [facility] 10.5 07/2021 Assessment: BS 300's, on steroids PLAN: start insulin infusion Migraine without aura and wi thout status migrainosus, not intractable 10/18/2016 02/28/2018 History of kidney stones 01/04/201610/2018 Abnormal sensation of left u pper and lower extremity 08/07/2013 01/06/2016 Depressive disorder, not elsewhere classified 11/28/1901/06/2016 Overview: [facility] Threatened , antepartum 06/30/2010 04/07/2011 Supervision of normal first 06/30/2010 04/07/2011 documented as of this encounter (statuses as of 08/19/2023) [facility]12-01-2021 Evaluation + Plan note Diagnostic Tests Pending * Urine Culture 04/28/[address] [facility] 05-23-2017 History of Past illness Narrative* Problem Noted Date Resolved Date Migraine without aura and wi thout status migrainosus, not intractable 10/18/2016 02/28/2018 History of kidney stones 01/04/2016 019 Abnormal sensation of left upper and lower extre mity 08/07/2013 01/06/2016 Depressive disorder, not elsewhere classified 01/06/2016 Overview: [facility] Threatened , antepartum 06/30/2010 04/07/2011 Supervision of normal first 06/30/2010 04/07/2011 documented as of this encounter (statuses as of 08/24/2021) [facility]2017 History of Past illness Narrative* Problem Noted Date Resolved Date Migraine without aura and wi thout status migrainosus, not intractable 10/18/2016 02/28/2018 History of kidney stones 01/04/2016 019 Abnormal sensation of left upper and lower extre mity 08/07/2013 01/06/2016 Depressive disorder, not elsewhere classified 01/06/2016 Overview: [facility] Threatened , antepartum 06/30/2010 04/07/2011 Supervision of normal first 06/30/2010 04/07/2011 documented as of this encounter (statuses as of 08/25/2021) [facility] History of Past illness Narrative* Problem Noted Date Resolved Date Migraine without aura and wi thout status migrainosus, not intractable 10/18/2016 02/28/2018 History of kidney stones 01/04/2016 019 Abnormal sensation of left upper and lower extre mity 08/07/2013 01/06/2016 Depressive disorder, not elsewhere classified 01/06/2016 Overview: [facility] Threatened , antepartum 06/30/2010 04/07/2011 Supervision of normal first 06/30/2010 04/07/2011 documented as of this encounter (statuses as of 08/27/2021) [facility] History of Past illness Narrative* Problem Noted Date Resolved Date Migraine without aura and wi thout status migrainosus, not intractable 10/18/2016 02/28/2018 History of kidney stones 01/04/2016 019 Abnormal sensation of left upper and lower extre mity 08/07/2013 01/06/2016 Depressive disorder, not elsewhere classified 01/06/2016 Overview: [facility] Threatened , antepartum 06/30/2010 04/07/2011 Supervision of normal first 06/30/2010 04/07/2011 documented as of this encounter (statuses as of 08/21/2021) [facility] History of Past illness Narrative* Problem Noted Date Resolved Date Migraine without aura and wi thout status migrainosus, not intractable 10/18/2016 02/28/2018 History of kidney stones 01/04/20162 019 Abnormal sensation of left upper and lower extre mity 08/07/2013 01/06/2016 Depressive disorder, not elsewhere classified 01/06/2016 Overview: [facility] Threatened , antepartum 06/30/2010 04/07/2011 Supervision of normal first 06/30/2010 04/07/2011 documented as of this encounter (statuses as of 08/30/2021) [facility] History of Past illness Narrative* Problem Noted Date Resolved Date Migraine without aura and wi thout status migrainosus, not intractable 10/18/2016 02/28/2018 History of kidney stones 01/04/2016 019 Abnormal sensation of left upper and lower extre mity 08/07/2013 01/06/2016 Depressive disorder, not elsewhere classified 01/06/2016 Overview: [facility] Threatened , antepartum 06/30/2010 04/07/2011 Supervision of normal first 06/30/2010 04/07/2011 documented as of this encounter (statuses as of 08/31/2021) [facility] History of Past illness Narrative* Problem Noted Date Resolved Date Migraine without aura and wi thout status migrainosus, not intractable 10/18/2016 02/28/2018 History of kidney stones 01/04/2016 019 Abnormal sensation of left upper and lower extre mity 08/07/2013 01/06/2016 Depressive disorder, not elsewhere classified 01/06/2016 Overview: [facility] Threatened , antepartum 06/30/2010 04/07/2011 Supervision of normal first 06/30/2010 04/07/2011 documented as of this encounter (statuses as of 09/03/2021) [facility] History of Past illness Narrative* Problem Noted Date Resolved Date Migraine without aura and wi thout status migrainosus, not intractable 10/18/2016 02/28/2018 History of kidney stones 01/04/2016 019 Abnormal sensation of left upper and lower extre mity 08/07/2013 01/06/2016 Depressive disorder, not elsewhere classified 01/06/2016 Overview: [facility] Threatened , antepartum 06/30/2010 04/07/2011 Supervision of normal first 06/30/2010 04/07/2011 documented as of this encounter (statuses as of 09/10/2021) [facility] History of Past illness Narrative* Problem Noted Date Resolved Date Migraine without aura and wi thout status migrainosus, not intractable 10/18/2016 02/28/2018 History of kidney stones 01/04/2016 019 Abnormal sensation of left upper and lower extre mity 08/07/2013 01/06/2016 Depressive disorder, not elsewhere classified 01/06/2016 Overview: [facility] Threatened , antepartum 06/30/2010 04/07/2011 Supervision of normal first 06/30/2010 04/07/2011 documented as of this encounter (statuses as of 09/10/2021) [facility] History of Past illness Narrative* Problem Noted Date Resolved Date Migraine without aura and wi thout status migrainosus, not intractable 10/18/2016 02/28/2018 History of kidney stones 01/04/2016 019 Abnormal sensation of left upper and lower extre mity 08/07/2013 01/06/2016 Depressive disorder, not elsewhere classified 01/06/2016 Overview: [facility] Threatened , antepartum 06/30/2010 04/07/2011 Supervision of normal first 06/30/2010 04/07/2011 documented as of this encounter (statuses as of 09/22/2021) [facility] History of Past illness Narrative* Problem Noted Date Resolved Date Migraine without aura and wi thout status migrainosus, not intractable 10/18/2016 02/28/2018 History of kidney stones 01/04/2016 019 Abnormal sensation of left upper and lower extre mity 08/07/2013 01/06/2016 Depressive disorder, not elsewhere classified 01/06/2016 Overview: [facility] Threatened , antepartum 06/30/2010 04/07/2011 Supervision of normal first 06/30/2010 04/07/2011 documented as of this encounter (statuses as of 09/22/2021) [facility] History of Past illness Narrative* Problem Noted Date Resolved Date Migraine without aura and wi thout status migrainosus, not intractable 10/18/2016 02/28/2018 History of kidney stones 01/04/201606 019 Abnormal sensation of left upper and lower extre mity 08/07/2013 01/06/2016 Depressive disorder, not elsewhere classified 01/06/2016 Overview: [facility] Threatened , antepartum 06/30/2010 04/07/2011 Supervision of normal first 06/30/2010 04/07/2011 documented as of this encounter (statuses as of 09/22/2021) [facility] History of Past illness Narrative* Problem Noted Date Resolved Date Migraine without aura and wi thout status migrainosus, not intractable 10/18/2016 02/28/2018 History of kidney stones 01/04/2016 019 Abnormal sensation of left upper and lower extre mity 08/07/2013 01/06/2016 Depressive disorder, not elsewhere classified 01/06/2016 Overview: [facility] Threatened , antepartum 06/30/2010 04/07/2011 Supervision of normal first 06/30/2010 04/07/2011 documented as of this encounter (statuses as of 09/23/2021) [facility] History of Past illness Narrative* Problem Noted Date Resolved Date Migraine without aura and wi thout status migrainosus, not intractable 10/18/2016 02/28/2018 History of kidney stones 01/04/2016 019 Abnormal sensation of left upper and lower extre mity 08/07/2013 01/06/2016 Depressive disorder, not elsewhere classified 01/06/2016 Overview: [facility] Threatened , antepartum 06/30/2010 04/07/2011 Supervision of normal first 06/30/2010 04/07/2011 documented as of this encounter (statuses as of 10/01/2021) [facility] August 16, 2022 1:31pm Note Date/Time August 16, 2022 1:3 1pm [facility] Medical Records Department [address] [place] [address] Consultation 08/16/22 1325 MR#: [id number] Acct: [id number] Name: DEBBY BAILON Rep #:[id number] : 1980 41 From: [facility] Wing DPBayron PCP: Dr. Will Brannon MD Status:REG ER Location: ED Assessment & Plan Assessment/Plan (1) Non-pressure chronic ulcer of other part of left foot with fat layer exposed: PLAN: Exam performed radiographs negative for osteomyelities or gas Leukocytosis noted, vitals stable Wound dry with mild cellulitis, recommend current daily dressing change regimen Recommend PO doxy/cipro Recommend repeat wound culture continue NWB Patient to follow up in clinic at 9:15 (2) Cellulitis of foot, left: HPI Consult Data Date of Consult: 08/16/22 HPI Narrative HPI Narrative: DEBBY BAILON, is a 41 F who presents with a chronic left heel wound and forefoot wound s/p debridement and sesamoidectomy on 07/15/22. Patient was d/c'don PO abx per ID recommendation. Patient presents to er today with new onset pain, redness and swelling. She denies any constititutional symptoms. She notes that she did trip on the site recently and has noticed issues since that time. [facility] Medical History Anxiety and depression Arthritis Manley's palsy Cellulitis of left lower extremity Chronic back pain Chronic nausea CKD (chronic kidney disease) Colostomy in place Constipation Delayed wound healing Depression Diabetes mellitus with diabetic polyneuropathy Diabetes mellitus, type II Diabetic foot infection Diabetic polyneuropathy Diabetic ulcer of left heel with fat layer exposed DJD (degenerative joint disease) of thoracic spine Dysthymic disorder Essential hypertension Hematochezia History of kidney stones History of migraine Hydronephrosis of right kidney Hyperglycemia Hyperlipidemia Infection of bladder catheter Insomnia Lipomeningocele Lower extremity edema Microalbuminuria Morbid obesity with BMI of 40.0-44.9, adult Neurogenic bladder Neurogenic bowel Non-compliance Non-smoker Normochromic normocytic anemia Open wound of left foot Panic attacks PSVT (paroxysmal supraventricular tachycardia) Sepsis Sepsis Spina bifida aperta of lumbar spine Thyroid cyst Type 2 diabetes mellitus with diabetic polyneuropathy Type 2 diabetes mellitus with foot ulcer Ulcer of left heel and midfoot with fat layer exposed Uninodular goiter Urinary tract infection Urinary tract infection UTI (urinary tract infection) UTI (urinary tract infection) Weakness Home Medications furosemide 20 mg tablet 20 mg PO 2200 fluid 08/28/18 [History Last Taken 01/18/22] furosemide 40 mg tablet 40 mg PO BREAKFAST fluid 04/05/19 [History Last Taken 01/19/22] oxybutynin chloride 15 mg tablet,extended release 24 hr 15 mg PO DAILY bladder 11/12/19 [History Last Taken 01/19/22] acetaminophen 500 mg tablet 1,000 mg PO TID PRN PRN Pain Or Fever 02/12/20 [History Last Taken 09/24/20 19:24] trazodone 100 mg tablet 100 mg PO QHS sleep 01/19/21 [History Last Taken Unknown] atorvastatin 80 mg tablet 80 mg PO DAILY cholesterol 01/29/21 [History Last Taken 01/19/22] insulin aspart (niacinamide)(U-100) 100 unit/mL(3 mL) subcutaneous pen 0 - 100 ml subcut PRN PRN Hyperglycemia 01/29/21 [History Last Taken Unknown] pen needle, diabetic 32 gauge x 5/32 (BD Ultra-Fine Hope Pen Needle) #400 ea 03/05/21 [Rx Last Taken Unknown] phenazopyridine 200 mg tablet (Pyridium) 200 mg PO BID PRN PRN Pain 11/20/21 [History Last Taken Unknown] glimepiride 2 mg tablet 2 mg PO BID #180 tabs 01/21/22 [Rx Last Taken 01/19/22] lisinopril 5 mg tablet 2.5 mg PO DAILY #90 tabs 01/21/22 [Rx Last Taken 01/19/22] propranolol 10 mg tablet 5 mg PO BID heart #30 tabs 01/21/22 [Rx Last Taken 01/19/22] ondansetron 4 mg disintegrating tablet 4 mg PO Q6H PRN nausea and vomiting #7 tabs 03/22/22 [Rx Last Taken Unknown] insulin glargine 100 unit/mL (3 mL) subcutaneous pen (Lantus Solostar U-100 Insulin) 33 unit subcut QHS dm 07/13/22 [History Last Taken Unknown] enoxaparin 40 mg/0.4 mL subcutaneous syringe 40 mg (0.4 mL) subcut DAILY #12 mL 07/18/22 [Rx Last Taken Unknown] linezolid 600 mg tablet 600 mg PO Q12H #14 tabs 07/18/22 [Rx Last Taken Unknown] metronidazole 500 mg tablet 500 mg PO TID #20 tabs 07/18/22 [Rx Last Taken Unknown] oxycodone 5 mg tablet 5 mg PO Q4H PRN PRN Pain Score 4-10 3 days #12 tabs 07/18/22 [Rx Last Taken Unknown] sulfamethoxazole 800 mg-trimethoprim 160 mg tablet (Bactrim DS) 1 tab PO BID 7 days #14 tabs 07/18/22 [Rx Last Taken Unknown] Allergy/AdvReac Type Severity Reaction Status Date / Time ceftriaxone [From Rocephin] Allergy Hives Verified 08/16/22 11:42 mushroom Allergy Anaphylaxis Verified 08/16/22 11:42 peanut Allergy Anaphylaxis Verified 08/16/22 11:42 piperacillin [From Zosyn] Allergy NEEDS Verified 08/16/22 11:42 FOLLOW-UP tazobactam [From Zosyn] Allergy NEEDS Verified 08/16/22 11:42 FOLLOW-UP fentanyl AdvReac Low blood Verified 08/16/22 11:42 pressure gabapentin AdvReac Other Verified 08/16/22 11:42 Gadolinium-MRI Contrast AdvReac Vomiting Verified 08/16/22 11:42 Medium Latex, Natural Rubber AdvReac Rash Verified 08/16/22 11:42 vancomycin AdvReac Rash Verified 08/16/22 11:42 Family History Mother CVA (cerebral vascular accident) Thyroid disorder Diabetes Hypertension Heart disease Hyperlipidemia Myocardial infarction, Onset Age: 54 mother had diabetes Father Cancer skin Grandmother Cancer liver Other Arthritis Skin cancer Surgical History history insertion suprapubic catheter History of cholecystectomy History of dilation and curettage History of spinal surgery Hx of foot surgery Hx of ventral hernia repair S/P colostomy S/P thyroid biopsy (~11/06/19) Status post gastric surgery Social History household members: significant other Smoking Status: Never smoker alcohol intake: current substance use type: does not use ROS Eyes Eyes: Denies double vision, foreign body or miosis ENT HEENT: Denies bleeding gums, ear discharge or hearing loss Cardiovascular Cardiovascular: Denies abdominal edema, chest pain or cyanosis Respiratory/Chest Respiratory/Chest: Denies change in mental status, difficulty clearing secretions or excessive phlegm production Gastrointestinal Gastrointestinal: Denies anorexia, coffee ground emesis or early satiety Physical Exam Narrative Intact pedal pulses loss of protective sensation bilateral feet focal ulceration to plantar heel and 1st met head, limited to subcutaneous breakdown. Periwound erythema, edema, warmth and pain. No fluctuance or crepitus. Patient has spina bifida Lab / Micro Data Result Diagrams: 08/16/22 12:40 08/16/22 12:40 Labs: Laboratory Results - last 24 hr 08/16/22 11:56: Urine Color Yellow, Urine Clarity Cloudy, Urine pH 6.0, Ur Specific Isabella 1.015, Urine Protein 100 H, Urine Glucose (UA) 1000 H, Urine Ketones Negative, Urine Occult Blood 50 H, Urine Nitrite Positive H, Urine Bilirubin Negative, Urine Urobilinogen Normal, Ur Leukocyte Esterase 500 H, Urine RBC 0-5 SEEN, Urine WBC 25-50 SEEN, Ur Squamous Epith Cells 0-5 SEEN, Urine Bacteria 4+, Urine Mucus 0 SEEN 08/16/22 12:40: WBC 15.6 H, RBC 4.02 L, Hgb 11.2 L, Hct 34.6 L, MCV 86.1, MCH 27.9, MCHC 32.4, RDW Std Deviation 46.2 H, RDW Coeff of Claude 14.7 H, Plt Count 235, MPV 10.5, Immature Gran % (Auto) 1.600 H, Neut % (Auto) 77.0 H, Lymph % (Auto) 14.1 L, [place] % (Auto) 6.5, Eos % (Auto) 0.4, Baso % (Auto) 0.4, Absolute Neuts (auto) 12.0 H, Absolute Lymphs (auto) 2.20, Nucleated RBC % 0 08/16/22 12:40: Sodium 134 L, Potassium 4.4, Chloride 103, Carbon Dioxide 23.0, Anion Gap 8, BUN 12, Creatinine 0.87, Estim Creat Clear Calc 64.86, Est GFR (MDRD) Af Amer 93, Est GFR (MDRD) Non-Af 77, BUN/Creatinine Ratio 13.9, Glucose 262 H, Calcium 8.9, Total Bilirubin 0.40, AST 17, ALT 23, Alkaline Phosphatase 91, Total Protein 7.6, Albumin 3.2, Globulin 4.4 H, Albumin/Globulin Ratio 0.7 L 08/16/22 12:40: Lactic Acid 1.0 Radiology Impression Foot X-Ray 08/16/22 11:53 IMPRESSION: Diffuse soft tissue swelling. Prior resection of the distal phalanx of the great toe as well as the distal portion of the fifth metatarsal. Calcaneal spur. Electronically Signed: Stephan Sood MD at 13:18 EDT Reading Location ID and State: [facility] / [place] , Service support , 08/16/22 1331 <Electronically signed by Xavier Wing DPM> Cosigner Signature (if applicable): CC: Dr. Will Barnnon MD~ Signed [facility] Work Phone: Evaluation note* Diagnosis Neurogenic bowel [facility] Diagnosis Neuropathy- Primary Mononeuritis of unspecified site Spina bifida, unspecified hydrocephalus presence, unspecified spinal region (HCC) Spinal stenosis of lumbar region without neurogenic claudication Spinal stenosis, lumbar region, without neurogenic claudication Thyroid cyst Cyst of thyroid Manley's palsy Facial weakness [facility] Diagnosis Neurogenic dysfunction of the urinary bladder- Primary Neurogenic bladder, NOS [facility] Diagnosis Manley's palsy Facial weakness Colonic dysmotility Unspecified functional disorder of intestine Constipation due to outlet dysfunction [facility] Diagnosis Spinal stenosis of lumbar region without neurogenic claudication Spinal stenosis, lumbar region, without neurogenic claudication Colonic dysmotility Unspecified functional disorder of intestine Constipation due to outlet dysfunction [facility] noteNo assessment information availableWGrand [facility] Work Phone: Evaluation note* Diagnosis Preoperative examination- Primary Preoperative examination, unspecified Colonic dysmotility Unspecified functional disorder of intestine Constipation due to outlet dysfunction Morbid obesity with BMI of 40.0-44.9, adult (HCC) Morbid obesity Migraine without aura and without status migrainosus, not intractable Migraine without aura, without mention of intractable migraine without mention of status migrainosus History of Manley's palsy Personal history of other disorders of nervous system and sense organs Spina bifida, unspecified hydrocephalus presence, unspecified spinal region ([facility]) Essential hypertension Unspecified essential hypertension Mixed hyperlipidemia Paroxysmal SVT (supraventricular tachycardia) ([facility]) Paroxysmal supraventricular tachycardia Neurogenic bladder Neurogenic bladder, NOS Type 2 diabetes mellitus with hyperglycemia, with long-term current use of insulin ([facility]) Colonic dysmotility Unspecified functional disorder of intestine Constipation due to outlet dysfunction [facility]* Diagnosis Attention to artificial opening of urinary tract (HCC)- Primary Attention to other artificial opening of urinary tract Colonic dysmotility Unspecified functional disorder of intestine Constipation due to outlet dysfunction [facility]* Diagnosis Attention to colostomy ([facility])- Primary Attention to colostomy [facility]* Diagnosis Anaphylaxis, initial encounter- Primary [facility]* Diagnosis Onset Date Resolution Status Cellulitis acute [facility] Work Phone: Evaluation note* Diagnosis Adverse effect of cephalosporins and other beta-lactam antibiotics, initial encounter- Primary Anaphylaxis, initial encounter [facility]* Diagnosis Encounter for screening mammogram for breast cancer [facility]* Diagnosis Suprapubic catheter (HCC)- Primary Other cystostomy status [facility] Diagnosis Neurogenic dysfunction of the urinary bladder- Primary Neurogenic bladder, NOS [facility]* Diagnosis Encounter for screening mammogram for breast cancer [facility] Diagnosis Neurogenic dysfunction of the urinary bladder- Primary Neurogenic bladder, NOS [facility]* Diagnosis 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) Neuropathy Mononeuritis of unspecified site [facility]* Diagnosis Thyroid cyst Cyst of thyroid [facility]* Diagnosis Globus sensation- Primary Gastrointestinal malfunction arising from mental factors Thyroid nodule Nontoxic uninodular goiter Pharyngeal dysphagia Dysphagia, pharyngeal phase [facility]* Diagnosis Thyroid cyst- Primary Cyst of thyroid Thyroid nodule Nontoxic uninodular goiter [facility] Diagnosis Thyroid nodule- Primary Nontoxic uninodular goiter Pharyngeal dysphagia Dysphagia, pharyngeal phase Globus sensation Gastrointestinal malfunction arising from mental factors Tenderness of neck [facility]* Diagnosis Gastroenteritis- Primary Other and unspecified noninfectious gastroenteritis and colitis [facility]* Diagnosis Neurogenic bladder- Primary Neurogenic bladder, NOS documented [facility]* Diagnosis Neurogenic bladder- Primary Neurogenic bladder, NOS [facility]* Diagnosis Screening for genitourinary condition Screening for other and unspecified genitourinary condition [facility]* Diagnosis Neurogenic bladder- Primary Neurogenic bladder, NOS [facility]* Diagnosis Onset Date Resolution Status Cellulitis acute Failure of outpatient treatment acute Pyrexia acute Diabetes mellitus, type II c [facility] Work Phone: Evaluation note* Diagnosis Onset Date Resolution Status Cellulitis acute Cellulitis of left lower limb acute Diabetes mellitus with diabetic polyneuropathy acute Failure of outpatient treatment acute Foot osteomyelitis, left acu te Pyrexia acute Type 2 diabetes mellitus with foot ulcer acute CKD (chronic kidney disease) chronic Diabetes mellitus, type II c [facility] [address] 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 Non-pressure chronic ulcer o f other part of left foot with fat layer exposed chronic [facility] Work Phone: Evaluation note* Diagnosis Neurogenic bladder- Primary Neurogenic bladder, NOS Suprapubic catheter (HCC) Other cystostomy status documented in this encounter [facility] note* Diagnosis Suprapubic catheter (HCC)- Primary Other cystostomy status Bladder stone Other calculus in bladder documented in this encounter [facility] note* Diagnosis Screening for genitourinary condition Screening for other and unspecified genitourinary condition documented in this encounter [facility] note* Diagnosis Neurogenic bladder- Primary Neurogenic bladder, NOS documented in this encounter [facility] note* Diagnosis Onset Date Resolution Status Cellulitis resolved Cellulitis of left lower limb resolved Failure of outpatient treatment resolved Foot osteomyelitis, left res olved Non-pressure chronic ulcer o f left heel and midfoot with fat layer exposed resolved Non-pressure chronic ulcer o f other part of left foot with fat layer exposed resolved Pyrexia resolved Type 2 diabetes mellitus with foot ulcer resolved [facility] Work Phone: Evaluation note* Diagnosis Non-compliance Personal history of noncompliance with medical treatment, presenting hazards to health documented in this encounter [facility] note* Diagnosis Neurogenic bladder- Primary Neurogenic bladder, NOS documented in this encounter [facility] note* Diagnosis Neurogenic bladder- Primary Neurogenic bladder, NOS Suprapubic catheter (HCC) Other cystostomy status Diabetes mellitus type 2 with ketoacidosis, uncontrolled ([facility]) Type II or unspecified type diabetes mellitus with ketoacidosis, uncontrolled documented in this encounter [facility] note* Diagnosis Onset Date Resolution Status Diabetes mellitus with diabetic polyneuropathy acute Cellulitis resolved Cellulitis of left lower limb resolved Failure of outpatient treatment resolved Foot osteomyelitis, left res olved Non-pressure chronic ulcer o f left heel and midfoot with fat layer exposed resolved Non-pressure chronic ulcer o f other part of left foot with fat layer exposed resolved Pyrexia resolved Type 2 diabetes mellitus with foot ulcer resolved Diabetes mellitus with diabetic polyneuropathy acute Noncompliance with diabetes treatment acute [facility] Work Phone: Evaluation note* Diagnosis Neurogenic bladder- Primary Neurogenic bladder, NOS documented in this encounter [facility] note* Diagnosis Attention to colostomy ([facility])- Primary Attention to colostomy [facility]* Diagnosis Attention to colostomy (HCC)- Primary Attention to colostomy [facility] Diagnosis Onset Date Resolution Status Diabetes mellitus with diabetic polyneuropathy acute Noncompliance with diabetes treatment acute [facility] Work Phone: Evaluation note* Diagnosis Neurogenic bladder- Primary Neurogenic bladder, NOS [facility]* Diagnosis Recurrent UTI- Primary Urinary tract infection, site not specified Uncontrolled type 2 diabetes mellitus with hyperglycemia (HCC) Neurogenic bladder Neurogenic bladder, NOS Suprapubic catheter (HCC) Other cystostomy status Morbid obesity with BMI of 40.0-44.9, adult (HCC) Morbid obesity [facility]* Diagnosis Screening for genitourinary condition Screening for other and unspecified genitourinary condition [facility]* Diagnosis Encounter for screening mammogram for breast cancer [facility]* Diagnosis Thyroid cyst Cyst of thyroid documented [facility]* Diagnosis Neurogenic bladder- Primary Neurogenic bladder, NOS [facility]* Diagnosis Neurogenic bladder- Primary Neurogenic bladder, NOS [facility]* Diagnosis Low TSH level- Primary Nonspecific abnormal results of thyroid function study Hyperthyroidism Thyrotoxicosis without mention of goiter or other cause, without mention of thyrotoxic crisis or storm [facility]* Diagnosis Thyroid nodule- Primary Nontoxic uninodular goiter [facility]* Diagnosis Thyroid nodule- Primary Nontoxic uninodular goiter [facility]* Diagnosis Intractable chronic migraine with aura and without status migrainosus- Primary Positional headache Headache Obstructive sleep apnea Obstructive sleep apnea (adult) (pediatric) Neuropathy Mononeuritis of unspecified site Paresthesias Disturbance of skin sensation Abnormal reflex [facility]* Diagnosis Neurogenic bladder- Primary Neurogenic bladder, NOS [facility]* Diagnosis Encounter for screening for malignant neoplasm of cervix- Primary Screening for malignant neoplasm of the cervix Abnormal uterine bleeding (AUB) Class 2 obesity with body mass index (BMI) of 35.0 to 35.9 in adult, unspecified obesity type, unspecified whether serious comorbidity present 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) [facility]* Diagnosis Neurogenic bladder- Primary Neurogenic bladder, NOS [facility]* Diagnosis Lipomeningocele (HCC)- Primary Spina bifida without mention of hydrocephalus, unspecified region Spinal stenosis of cervical region Spinal stenosis in cervical region Radiculopathy of lumbar region Thoracic or lumbosacral neuritis or radiculitis, unspecified Chronic bilateral low back pain without sciatica [facility]* Diagnosis Cervical vertebral fusion- Primary Other unspecified back disorder Positional headache Headache Intractable chronic migraine with aura and without status migrainosus Paresthesias Disturbance of skin sensation Spina bifida, unspecified hydrocephalus presence, unspecified spinal region (HCC) Spinal stenosis of lumbar region without neurogenic claudication Spinal stenosis, lumbar region, without neurogenic claudication [facility]* Diagnosis Spinal stenosis of cervical region Spinal stenosis in cervical region Radiculopathy of lumbar region Thoracic or lumbosacral neuritis or radiculitis, unspecified Chronic bilateral low back pain without sciatica [facility]* Diagnosis Lipomeningocele (HCC) Spina bifida without mention of hydrocephalus, unspecified region [facility]* Diagnosis 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 Pre-op testing Preoperative examination, unspecified 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 [facility]* Diagnosis Medicare annual wellness visit, subsequent- Primary Routine general medical examination at a health care facility 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) Diabetes mellitus with peripheral vascular disease (HCC) Type II or unspecified type diabetes mellitus with peripheral circulatory disorders, not stated as uncontrolled Mixed hyperlipidemia Low TSH level Nonspecific abnormal results of thyroid function study Bilateral leg edema Edema Medication management Encounter for long-term (current) use of other medications Paroxysmal SVT (supraventricular tachycardia) (HCC) Paroxysmal supraventricular tachycardia Hyperthyroidism Thyrotoxicosis without mention of goiter or other cause, without mention of thyrotoxic crisis or storm Seasonal allergic rhinitis, unspecified trigger Colostomy in place (HCC) Colostomy status Encounter for care or replacement of suprapubic tube (HCC) Attention to cystostomy Primary insomnia Persistent disorder of initiating or maintaining sleep Major depressive disorder, recurrent, mild (HCC) Major depressive disorder, recurrent episode, mild Moderate recurrent major depression (HCC) Major depressive disorder, recurrent episode, moderate 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 [facility]* Diagnosis Neurogenic bladder- Primary Neurogenic bladder, NOS 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 [facility]* Diagnosis Abnormal finding of diagnostic imaging- Primary Other nonspecific (abnormal) findings on radiological and other examinations of body structure 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 [facility]* Diagnosis Neurogenic bladder- Primary Neurogenic bladder, NOS 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 [facility]* Diagnosis 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)- Primary 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) Diabetes mellitus with peripheral vascular disease (HCC) Type II or unspecified type diabetes mellitus with peripheral circulatory disorders, not stated as uncontrolled Mixed hyperlipidemia 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 [facility]* Diagnosis Pre-op evaluation- Primary Preoperative examination, unspecified Spina bifida, unspecified hydrocephalus presence, unspecified spinal region (HCC) Mixed hyperlipidemia Essential hypertension Unspecified essential hypertension Diabetes mellitus with peripheral vascular disease (HCC) Type II or unspecified type diabetes mellitus with peripheral circulatory disorders, not stated as uncontrolled Neurogenic bowel Fatty liver Other chronic nonalcoholic liver disease Neurogenic bladder Neurogenic bladder, NOS Anxiety and depression Dysthymic disorder Bilateral leg edema Edema Colostomy in place (HCC) Colostomy status Paroxysmal SVT (supraventricular tachycardia) (HCC) Paroxysmal supraventricular tachycardia 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 Pre-op testing Preoperative examination, unspecified 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 * Assessment & Plan Note - Zainab Zendejas APRN.CNP - 10/11/2023 9:25 AM EDT Associated Problem(s): Colostomy in place (HCC) Assessment: reports feeling very well since placed. Reports daily changes. No blood in stool. * Assessment & Plan Note - Zainab Zendejas APRN.CNP - 10/11/2023 9:23 AM EDT Associated Problem(s): Bilateral leg edema Assessment: on lasix, chronic LE b/l. Pt reports at baseline today * Assessment & Plan Note - Zainab Zendejas APRN.CNP - 10/11/2023 9:18 AM EDT Associated Problem(s): Anxiety and depression Assessment: complaint on mood stablizers, follows psychiatry. * Assessment & Plan Note - Zainab Zendejas APRN.CNP - 10/11/2023 9:17 AM EDT Associated Problem(s): Neurogenic bladder Assessment: has SPT catheter present. * Assessment & Plan Note - Zainab Zendejas APRN.CNP - 10/11/2023 9:17 AM EDT Associated Problem(s): Fatty liver Assessment: Follows pcp CMP: Glucose 343 10/02/2023 BUN 16 10/02/2023 Creatinine 0.82 10/02/2023 Sodium 136 10/02/2023 Potassium 4.0 10/02/2023 Chloride 96 10/02/2023 CO2 25 10/02/2023 Protein, Total 7.6 10/02/2023 Albumin 4.4 10/02/2023 Calcium 10.4 10/02/2023 Alkaline Phosphatase 111 10/02/2023 Bilirubin, Total 0.2 10/02/2023 AST 38 10/02/2023 ALT 69 10/02/2023 * Assessment & Plan Note - Zainab Zendejas APRN.BURIAL AGENT - 10/11/2023 9:17 AM EDT Associated Problem(s): Neurogenic bowel Assessment: has colostomy present. * Assessment & Plan Note - Zainab Zendejas APRN.BURIAL AGENT - 10/11/2023 9:17 AM EDT Associated Problem(s): Diabetes mellitus with peripheral vascular disease (HCC) Assessment: Reports compliance to medication. Reports BS checks, reports in the low 200s. Followingwith endo, to be seen by new endo in the future. Encouraged lifestyle modifications. Hemoglobin A1C Date Value 10/02/2023 11.8 % 04/12/2023 11.1 % 01/13/2022 8.2 03/05/2021 12 10/30/2020 10.9 % 03/09/2020 9.6 % Hemoglobin A1C (POCT) (%) Date Value 06/25/2020 11.6 * Assessment & Plan Note - Zainab Zendejas APRN.BURIAL AGENT - 10/11/2023 9:16 AM EDT Associated Problem(s): Essential hypertension Assessment: Stable, complaint on rx. Follows with PCP. Last 3 Encounter BP Readings: Date: BP: 10/11/2023 118/82 10/09/2023 112/71 09/28/2023 110/78 * Assessment & Plan Note - Zainab Zendejas APRN.CNP - 10/11/2023 9:16 AM EDT Associated Problem(s): Mixed hyperlipidemia Assessment: Complaint on statin therapy. Encouraged lifestyle modifications. Body mass index is 40.62 kg/m . * Assessment & Plan Note - Zainab Zendejas APRN.CNP - 10/11/2023 9:16 AM EDT Associated Problem(s): Spina bifida (HCC) Assessment: dx at 32, prior spinal procedures. is caregiver. [facility] Diagnosis 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 [facility] Diagnosis Abnormal finding of diagnostic imaging- Primary Other nonspecific (abnormal) findings on radiological and other examinations of body structure [facility]* Diagnosis 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 of spleen Urinary tract infection with hematuria, site unspecified Acute pyelonephritis Acute pyelonephritis without lesion of renal medullary necrosis C. difficile colitis Intestinal infection due to clostridium difficile Colostomy in place (HCC) Colostomy status Suprapubic catheter (HCC) Other cystostomy status Diabetes mellitus treated with insulin ([facility])- [facility] Neurogenic bladder- Primary Neurogenic bladder, NOS Suprapubic catheter (HCC) Other cystostomy status Diabetes mellitus treated with insulin ([facility])- [facility] Diagnosis Diabetes mellitus treated with insulin (HCC)- Primary Diabetes mellitus type 2 with ketoacidosis, uncontrolled (HCC) Type II or unspecified type diabetes mellitus with ketoacidosis, uncontrolled [facility] Diagnosis Neurogenic bladder- Primary Neurogenic bladder, NOS Suprapubic catheter (HCC) Other cystostomy status [facility] Diagnosis Neurogenic bladder- Primary Neurogenic bladder, NOS [facility] Diagnosis Spina bifida, unspecified hydrocephalus presence, unspecified spinal region ([facility])- Primary Intractable chronic migraine with aura and without status migrainosus Neuropathy Mononeuritis of unspecified site Paresthesias Disturbance of skin sensation Cervical vertebral fusion Other unspecified back disorder [facility]* Diagnosis Preoperative testing- Primary Preoperative examination, unspecified Neurogenic bladder Neurogenic bladder, NOS Spina bifida, unspecified hydrocephalus presence, unspecified spinal region ([facility]) Morbid obesity (HCC) Morbid obesity Mixed hyperlipidemia Type 2 diabetes mellitus with proteinuria ([facility]) ([facility]) Paroxysmal SVT (supraventricular tachycardia) ([facility]) Paroxysmal supraventricular tachycardia Migraine without aura and without status migrainosus, not intractable Migraine without aura, without mention of intractable migraine without mention of status migrainosus Anxiety Anxiety state, unspecified Pre-operative examination- Primary Preoperative examination, unspecified Bladder stone Other calculus in bladder Migraine without aura and without status migrainosus, not intractable Migraine without aura, without mention of intractable migraine without mention of status migrainosus Numbness and tingling of left arm and leg Disturbance of skin sensation Spina bifida, unspecified hydrocephalus presence, unspecified spinal region ([facility]) Essential hypertension Unspecified essential hypertension Mixed hyperlipidemia Paroxysmal SVT (supraventricular tachycardia) ([facility]) Paroxysmal supraventricular tachycardia Fatty liver Other chronic nonalcoholic liver disease Neurogenic bowel DM (diabetes mellitus), secondary, uncontrolled, w/renal complications Secondary diabetes mellitus with renal manifestations, uncontrolled Neurogenic bladder Neurogenic bladder, NOS Amputation of left great toe ([facility]) Low back pain, unspecified back pain laterality, unspecified chronicity, unspecified whether sciatica present Dysthymic disorder History of recurrent UTIs Personal history of urinary (tract) infection Obesity, Class III, BMI 40-49.9 (morbid obesity) ([facility]) Morbid obesity Post-op pain Other acute postoperative pain Type 2 diabetes mellitus with hyperglycemia, with long-term current use of insulin ([facility]) Paroxysmal SVT (supraventricular tachycardia) ([facility]) Paroxysmal supraventricular tachycardia Neurogenic bowel Encounter for care or replacement of suprapubic tube ([facility]) Attention to cystostomy Type 2 diabetes mellitus with albuminuria ([facility]) ([facility]) Preoperative examination- Primary Preoperative examination, unspecified Colonic dysmotility Unspecified functional disorder of intestine Constipation due to outlet dysfunction Morbid obesity with BMI of 40.0-44.9, adult (HCC) Morbid obesity Migraine without aura and without status migrainosus, not intractable Migraine without aura, without mention of intractable migraine without mention of status migrainosus History of Manley's palsy Personal history of other disorders of nervous system and sense organs Spina bifida, unspecified hydrocephalus presence, unspecified spinal region (HCC) Essential hypertension Unspecified essential hypertension Mixed hyperlipidemia Paroxysmal SVT (supraventricular tachycardia) (HCC) Paroxysmal supraventricular tachycardia Neurogenic bladder Neurogenic bladder, NOS Type 2 diabetes mellitus with hyperglycemia, with long-term current use of insulin (HCC) Pre-op evaluation- Primary Preoperative examination, unspecified Spina bifida, unspecified hydrocephalus presence, unspecified spinal region (HCC) Mixed hyperlipidemia Essential hypertension Unspecified essential hypertension Diabetes mellitus with peripheral vascular disease (HCC) Type II or unspecified type diabetes mellitus with peripheral circulatory disorders, not stated as uncontrolled Neurogenic bowel Fatty liver Other chronic nonalcoholic liver disease Neurogenic bladder Neurogenic bladder, NOS Anxiety and depression Dysthymic disorder Bilateral leg edema Edema Colostomy in place (HCC) Colostomy status Paroxysmal SVT (supraventricular tachycardia) (HCC) Paroxysmal supraventricular tachycardia 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 Pre-op testing Preoperative examination, unspecified 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) Diabetes mellitus with peripheral vascular disease (HCC) Type II or unspecified type diabetes mellitus with peripheral circulatory disorders, not stated as uncontrolled documented in this encounter [facility]* Diagnosis Preoperative testing- Primary Preoperative examination, unspecified Neurogenic bladder Neurogenic bladder, NOS Spina bifida, unspecified hydrocephalus presence, unspecified spinal region ([facility]) Morbid obesity (HCC) Morbid obesity Mixed hyperlipidemia 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) Paroxysmal SVT (supraventricular tachycardia) (HCC) Paroxysmal supraventricular tachycardia Migraine without aura and without status migrainosus, not intractable Migraine without aura, without mention of intractable migraine without mention of status migrainosus Anxiety Anxiety state, unspecified Pre-operative examination- Primary Preoperative examination, unspecified Bladder stone Other calculus in bladder Migraine without aura and without status migrainosus, not intractable Migraine without aura, without mention of intractable migraine without mention of status migrainosus Numbness and tingling of left arm and leg Disturbance of skin sensation Spina bifida, unspecified hydrocephalus presence, unspecified spinal region (HCC) Essential hypertension Unspecified essential hypertension Mixed hyperlipidemia Paroxysmal SVT (supraventricular tachycardia) (HCC) Paroxysmal supraventricular tachycardia Fatty liver Other chronic nonalcoholic liver disease Neurogenic bowel DM (diabetes mellitus), secondary, uncontrolled, w/renal complications Secondary diabetes mellitus with renal manifestations, uncontrolled Neurogenic bladder Neurogenic bladder, NOS Amputation of left great toe ([facility]) Low back pain, unspecified back pain laterality, unspecified chronicity, unspecified whether sciatica present Dysthymic disorder History of recurrent UTIs Personal history of urinary (tract) infection Obesity, Class III, BMI 40-49.9 (morbid obesity) ([facility]) Morbid obesity Post-op pain Other acute postoperative pain Type 2 diabetes mellitus with hyperglycemia, with long-term current use of insulin ([facility]) Paroxysmal SVT (supraventricular tachycardia) ([facility]) Paroxysmal supraventricular tachycardia Neurogenic bowel Encounter for care or replacement of suprapubic tube ([facility]) Attention to cystostomy Type 2 diabetes mellitus with albuminuria ([facility]) ([facility]) Preoperative examination- Primary Preoperative examination, unspecified Colonic dysmotility Unspecified functional disorder of intestine Constipation due to outlet dysfunction Morbid obesity with BMI of 40.0-44.9, adult ([facility]) Morbid obesity Migraine without aura and without status migrainosus, not intractable Migraine without aura, without mention of intractable migraine without mention of status migrainosus History of Manley's palsy Personal history of other disorders of nervous system and sense organs Spina bifida, unspecified hydrocephalus presence, unspecified spinal region ([facility]) Essential hypertension Unspecified essential hypertension Mixed hyperlipidemia Paroxysmal SVT (supraventricular tachycardia) ([facility]) Paroxysmal supraventricular tachycardia Neurogenic bladder Neurogenic bladder, NOS Type 2 diabetes mellitus with hyperglycemia, with long-term current use of insulin ([facility]) Pre-op evaluation- Primary Preoperative examination, unspecified Spina bifida, unspecified hydrocephalus presence, unspecified spinal region ([facility]) Mixed hyperlipidemia Essential hypertension Unspecified essential hypertension Diabetes mellitus with peripheral vascular disease ([facility]) Type II or unspecified type diabetes mellitus with peripheral circulatory disorders, not stated as uncontrolled Neurogenic bowel Fatty liver Other chronic nonalcoholic liver disease Neurogenic bladder Neurogenic bladder, NOS Anxiety and depression Dysthymic disorder Bilateral leg edema Edema Colostomy in place ([facility]) Colostomy status Paroxysmal SVT (supraventricular tachycardia) ([facility]) Paroxysmal supraventricular tachycardia Tethered cord ([facility]) Other specified congenital anomaly of spinal cord Pre-op testing Preoperative examination, unspecified Neurogenic bladder- Primary Neurogenic bladder, NOS documented in this encounter [facility] note* Diagnosis Preoperative testing- Primary Preoperative examination, unspecified Neurogenic bladder Neurogenic bladder, NOS Spina bifida, unspecified hydrocephalus presence, unspecified spinal region (HCC) Morbid obesity (HCC) Morbid obesity Mixed hyperlipidemia 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) Paroxysmal SVT (supraventricular tachycardia) (HCC) Paroxysmal supraventricular tachycardia Migraine without aura and without status migrainosus, not intractable Migraine without aura, without mention of intractable migraine without mention of status migrainosus Anxiety Anxiety state, unspecified Pre-operative examination- Primary Preoperative examination, unspecified Bladder stone Other calculus in bladder Migraine without aura and without status migrainosus, not intractable Migraine without aura, without mention of intractable migraine without mention of status migrainosus Numbness and tingling of left arm and leg Disturbance of skin sensation Spina bifida, unspecified hydrocephalus presence, unspecified spinal region (HCC) Essential hypertension Unspecified essential hypertension Mixed hyperlipidemia Paroxysmal SVT (supraventricular tachycardia) (HCC) Paroxysmal supraventricular tachycardia Fatty liver Other chronic nonalcoholic liver disease Neurogenic bowel DM (diabetes mellitus), secondary, uncontrolled, w/renal complications Secondary diabetes mellitus with renal manifestations, uncontrolled Neurogenic bladder Neurogenic bladder, NOS Amputation of left great toe ([facility]) Low back pain, unspecified back pain laterality, unspecified chronicity, unspecified whether sciatica present Dysthymic disorder History of recurrent UTIs Personal history of urinary (tract) infection Obesity, Class III, BMI 40-49.9 (morbid obesity) ([facility]) Morbid obesity Post-op pain Other acute postoperative pain Type 2 diabetes mellitus with hyperglycemia, with long-term current use of insulin (HCC) Paroxysmal SVT (supraventricular tachycardia) (HCC) Paroxysmal supraventricular tachycardia Neurogenic bowel Encounter for care or replacement of suprapubic tube (HCC) Attention to cystostomy Type 2 diabetes mellitus with albuminuria ([facility]) ([facility]) Preoperative examination- Primary Preoperative examination, unspecified Colonic dysmotility Unspecified functional disorder of intestine Constipation due to outlet dysfunction Morbid obesity with BMI of 40.0-44.9, adult (HCC) Morbid obesity Migraine without aura and without status migrainosus, not intractable Migraine without aura, without mention of intractable migraine without mention of status migrainosus History of Manley's palsy Personal history of other disorders of nervous system and sense organs Spina bifida, unspecified hydrocephalus presence, unspecified spinal region (HCC) Essential hypertension Unspecified essential hypertension Mixed hyperlipidemia Paroxysmal SVT (supraventricular tachycardia) (HCC) Paroxysmal supraventricular tachycardia Neurogenic bladder Neurogenic bladder, NOS Type 2 diabetes mellitus with hyperglycemia, with long-term current use of insulin (HCC) Pre-op evaluation- Primary Preoperative examination, unspecified Spina bifida, unspecified hydrocephalus presence, unspecified spinal region (HCC) Mixed hyperlipidemia Essential hypertension Unspecified essential hypertension Diabetes mellitus with peripheral vascular disease (HCC) Type II or unspecified type diabetes mellitus with peripheral circulatory disorders, not stated as uncontrolled Neurogenic bowel Fatty liver Other chronic nonalcoholic liver disease Neurogenic bladder Neurogenic bladder, NOS Anxiety and depression Dysthymic disorder Bilateral leg edema Edema Colostomy in place (HCC) Colostomy status Paroxysmal SVT (supraventricular tachycardia) (HCC) Paroxysmal supraventricular tachycardia 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 Pre-op testing Preoperative examination, unspecified Neurogenic bladder- Primary Neurogenic bladder, NOS documented in this encounter [facility] note* Diagnosis Preoperative testing- Primary Preoperative examination, unspecified Neurogenic bladder Neurogenic bladder, NOS Spina bifida, unspecified hydrocephalus presence, unspecified spinal region (HCC) Morbid obesity (HCC) Morbid obesity Mixed hyperlipidemia 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) Paroxysmal SVT (supraventricular tachycardia) (HCC) Paroxysmal supraventricular tachycardia Migraine without aura and without status migrainosus, not intractable Migraine without aura, without mention of intractable migraine without mention of status migrainosus Anxiety Anxiety state, unspecified Pre-operative examination- Primary Preoperative examination, unspecified Bladder stone Other calculus in bladder Migraine without aura and without status migrainosus, not intractable Migraine without aura, without mention of intractable migraine without mention of status migrainosus Numbness and tingling of left arm and leg Disturbance of skin sensation Spina bifida, unspecified hydrocephalus presence, unspecified spinal region (HCC) Essential hypertension Unspecified essential hypertension Mixed hyperlipidemia Paroxysmal SVT (supraventricular tachycardia) (HCC) Paroxysmal supraventricular tachycardia Fatty liver Other chronic nonalcoholic liver disease Neurogenic bowel DM (diabetes mellitus), secondary, uncontrolled, w/renal complications Secondary diabetes mellitus with renal manifestations, uncontrolled Neurogenic bladder Neurogenic bladder, NOS Amputation of left great toe (HCC) Low back pain, unspecified back pain laterality, unspecified chronicity, unspecified whether sciatica present Dysthymic disorder History of recurrent UTIs Personal history of urinary (tract) infection Obesity, Class III, BMI 40-49.9 (morbid obesity) ([facility]) Morbid obesity Post-op pain Other acute postoperative pain Type 2 diabetes mellitus with hyperglycemia, with long-term current use of insulin ([facility]) Paroxysmal SVT (supraventricular tachycardia) (HCC) Paroxysmal supraventricular tachycardia Neurogenic bowel Encounter for care or replacement of suprapubic tube ([facility]) Attention to cystostomy Type 2 diabetes mellitus with albuminuria ([facility]) ([facility]) Preoperative examination- Primary Preoperative examination, unspecified Colonic dysmotility Unspecified functional disorder of intestine Constipation due to outlet dysfunction Morbid obesity with BMI of 40.0-44.9, adult ([facility]) Morbid obesity Migraine without aura and without status migrainosus, not intractable Migraine without aura, without mention of intractable migraine without mention of status migrainosus History of Manley's palsy Personal history of other disorders of nervous system and sense organs Spina bifida, unspecified hydrocephalus presence, unspecified spinal region ([facility]) Essential hypertension Unspecified essential hypertension Mixed hyperlipidemia Paroxysmal SVT (supraventricular tachycardia) ([facility]) Paroxysmal supraventricular tachycardia Neurogenic bladder Neurogenic bladder, NOS Type 2 diabetes mellitus with hyperglycemia, with long-term current use of insulin ([facility]) Pre-op evaluation- Primary Preoperative examination, unspecified Spina bifida, unspecified hydrocephalus presence, unspecified spinal region ([facility]) Mixed hyperlipidemia Essential hypertension Unspecified essential hypertension Diabetes mellitus with peripheral vascular disease ([facility]) Type II or unspecified type diabetes mellitus with peripheral circulatory disorders, not stated as uncontrolled Neurogenic bowel Fatty liver Other chronic nonalcoholic liver disease Neurogenic bladder Neurogenic bladder, NOS Anxiety and depression Dysthymic disorder Bilateral leg edema Edema Colostomy in place (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) ([facility]) Paroxysmal SVT (supraventricular tachycardia) ([facility]) Paroxysmal supraventricular tachycardia Migraine without aura and without status migrainosus, not intractable Migraine without aura, without mention of intractable migraine without mention of status migrainosus Anxiety Anxiety state, unspecified Pre-operative examination- Primary Preoperative examination, unspecified Bladder stone Other calculus in bladder Migraine without aura and without status migrainosus, not intractable Migraine without aura, without mention of intractable migraine without mention of status migrainosus Numbness and tingling of left arm and leg Disturbance of skin sensation Spina bifida, unspecified hydrocephalus presence, unspecified spinal region (HCC) Essential hypertension Unspecified essential hypertension Mixed hyperlipidemia Paroxysmal SVT (supraventricular tachycardia) (HCC) Paroxysmal supraventricular tachycardia Fatty liver Other chronic nonalcoholic liver disease Neurogenic bowel DM (diabetes mellitus), secondary, uncontrolled, w/renal complications Secondary diabetes mellitus with renal manifestations, uncontrolled Neurogenic bladder Neurogenic bladder, NOS Amputation of left great toe ([facility]) Low back pain, unspecified back pain laterality, unspecified chronicity, unspecified whether sciatica present Dysthymic disorder History of recurrent UTIs Personal history of urinary (tract) infection Obesity, Class III, BMI 40-49.9 (morbid obesity) ([facility]) Morbid obesity Post-op pain Other acute postoperative pain Type 2 diabetes mellitus with hyperglycemia, with long-term current use of insulin ([facility]) Paroxysmal SVT (supraventricular tachycardia) ([facility]) Paroxysmal supraventricular tachycardia Neurogenic bowel Encounter for care or replacement of suprapubic tube ([facility]) Attention to cystostomy Type 2 diabetes mellitus with albuminuria ([facility]) ([facility]) Preoperative examination- Primary Preoperative examination, unspecified Colonic dysmotility Unspecified functional disorder of intestine Constipation due to outlet dysfunction Morbid obesity with BMI of 40.0-44.9, adult ([facility]) Morbid obesity Migraine without aura and without status migrainosus, not intractable Migraine without aura, without mention of intractable migraine without mention of status migrainosus History of Manley's palsy Personal history of other disorders of nervous system and sense organs Spina bifida, unspecified hydrocephalus presence, unspecified spinal region (HCC) Essential hypertension Unspecified essential hypertension Mixed hyperlipidemia Paroxysmal SVT (supraventricular tachycardia) (HCC) Paroxysmal supraventricular tachycardia Neurogenic bladder Neurogenic bladder, NOS Type 2 diabetes mellitus with hyperglycemia, with long-term current use of insulin ([facility]) Pre-op evaluation- Primary Preoperative examination, unspecified Spina bifida, unspecified hydrocephalus presence, unspecified spinal region (HCC) Mixed hyperlipidemia Essential hypertension Unspecified essential hypertension Diabetes mellitus with peripheral vascular disease (HCC) Type II or unspecified type diabetes mellitus with peripheral circulatory disorders, not stated as uncontrolled Neurogenic bowel Fatty liver Other chronic nonalcoholic liver disease Neurogenic bladder Neurogenic bladder, NOS Anxiety and depression Dysthymic disorder Bilateral leg edema Edema Colostomy in place (HCC) Colostomy status Paroxysmal SVT (supraventricular tachycardia) (HCC) Paroxysmal supraventricular tachycardia 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) Paroxysmal supraventricular tachycardia Migraine without aura and without status migrainosus, not intractable Migraine without aura, without mention of intractable migraine without mention of status migrainosus Anxiety Anxiety state, unspecified Pre-operative examination- Primary Preoperative examination, unspecified Bladder stone Other calculus in bladder Migraine without aura and without status migrainosus, not intractable Migraine without aura, without mention of intractable migraine without mention of status migrainosus Numbness and tingling of left arm and leg Disturbance of skin sensation Spina bifida, unspecified hydrocephalus presence, unspecified spinal region (HCC) Essential hypertension Unspecified essential hypertension Mixed hyperlipidemia Paroxysmal SVT (supraventricular tachycardia) (HCC) Paroxysmal supraventricular tachycardia Fatty liver Other chronic nonalcoholic liver disease Neurogenic bowel DM (diabetes mellitus), secondary, uncontrolled, w/renal complications Secondary diabetes mellitus with renal manifestations, uncontrolled Neurogenic bladder Neurogenic bladder, NOS Amputation of left great toe ([facility]) Low back pain, unspecified back pain laterality, unspecified chronicity, unspecified whether sciatica present Dysthymic disorder History of recurrent UTIs Personal history of urinary (tract) infection Obesity, Class III, BMI 40-49.9 (morbid obesity) (HCC) Morbid obesity Post-op pain Other acute postoperative pain Type 2 diabetes mellitus with hyperglycemia, with long-term current use of insulin (HCC) Paroxysmal SVT (supraventricular tachycardia) (HCC) Paroxysmal supraventricular tachycardia Neurogenic bowel Encounter for care or replacement of suprapubic tube ([facility]) Attention to cystostomy Type 2 diabetes mellitus with albuminuria ([facility]) ([facility]) Preoperative examination- Primary Preoperative examination, unspecified Colonic dysmotility Unspecified functional disorder of intestine Constipation due to outlet dysfunction Morbid obesity with BMI of 40.0-44.9, adult (HCC) Morbid obesity Migraine without aura and without status migrainosus, not intractable Migraine without aura, without mention of intractable migraine without mention of status migrainosus History of Manley's palsy Personal history of other disorders of nervous system and sense organs Spina bifida, unspecified hydrocephalus presence, unspecified spinal region (HCC) Essential hypertension Unspecified essential hypertension Mixed hyperlipidemia Paroxysmal SVT (supraventricular tachycardia) (HCC) Paroxysmal supraventricular tachycardia Neurogenic bladder Neurogenic bladder, NOS Type 2 diabetes mellitus with hyperglycemia, with long-term current use of insulin (HCC) Pre-op evaluation- Primary Preoperative examination, unspecified Spina bifida, unspecified hydrocephalus presence, unspecified spinal region (HCC) Mixed hyperlipidemia Essential hypertension Unspecified essential hypertension Diabetes mellitus with peripheral vascular disease (HCC) Type II or unspecified type diabetes mellitus with peripheral circulatory disorders, not stated as uncontrolled Neurogenic bowel Fatty liver Other chronic nonalcoholic liver disease Neurogenic bladder Neurogenic bladder, NOS Anxiety and depression Dysthymic disorder Bilateral leg edema Edema Colostomy in place (HCC) Colostomy status Paroxysmal SVT (supraventricular tachycardia) (HCC) Paroxysmal supraventricular tachycardia 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 Pre-op testing Preoperative examination, unspecified Splenic infarct Other diseases of [facility] Preoperative testing- Primary Preoperative examination, unspecified Neurogenic bladder Neurogenic bladder, NOS Spina bifida, unspecified hydrocephalus presence, unspecified spinal region (HCC) Morbid obesity (HCC) Morbid obesity Mixed hyperlipidemia 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) Paroxysmal SVT (supraventricular tachycardia) (HCC) Paroxysmal supraventricular tachycardia Migraine without aura and without status migrainosus, not intractable Migraine without aura, without mention of intractable migraine without mention of status migrainosus Anxiety Anxiety state, unspecified Pre-operative examination- Primary Preoperative examination, unspecified Bladder stone Other calculus in bladder Migraine without aura and without status migrainosus, not intractable Migraine without aura, without mention of intractable migraine without mention of status migrainosus Numbness and tingling of left arm and leg Disturbance of skin sensation Spina bifida, unspecified hydrocephalus presence, unspecified spinal region (HCC) Essential hypertension Unspecified essential hypertension Mixed hyperlipidemia Paroxysmal SVT (supraventricular tachycardia) (HCC) Paroxysmal supraventricular tachycardia Fatty liver Other chronic nonalcoholic liver disease Neurogenic bowel DM (diabetes mellitus), secondary, uncontrolled, w/renal complications Secondary diabetes mellitus with renal manifestations, uncontrolled Neurogenic bladder Neurogenic bladder, NOS Amputation of left great toe ([facility]) Low back pain, unspecified back pain laterality, unspecified chronicity, unspecified whether sciatica present Dysthymic disorder History of recurrent UTIs Personal history of urinary (tract) infection Obesity, Class III, BMI 40-49.9 (morbid obesity) ([facility]) Morbid obesity Post-op pain Other acute postoperative pain Type 2 diabetes mellitus with hyperglycemia, with long-term current use of insulin ([facility]) Paroxysmal SVT (supraventricular tachycardia) ([facility]) Paroxysmal supraventricular tachycardia Neurogenic bowel Encounter for care or replacement of suprapubic tube ([facility]) Attention to cystostomy Type 2 diabetes mellitus with albuminuria ([facility]) ([facility]) Preoperative examination- Primary Preoperative examination, unspecified Colonic dysmotility Unspecified functional disorder of intestine Constipation due to outlet dysfunction Morbid obesity with BMI of 40.0-44.9, adult ([facility]) Morbid obesity Migraine without aura and without status migrainosus, not intractable Migraine without aura, without mention of intractable migraine without mention of status migrainosus History of Manley's palsy Personal history of other disorders of nervous system and sense organs Spina bifida, unspecified hydrocephalus presence, unspecified spinal region ([facility]) Essential hypertension Unspecified essential hypertension Mixed hyperlipidemia Paroxysmal SVT (supraventricular tachycardia) ([facility]) Paroxysmal supraventricular tachycardia Neurogenic bladder Neurogenic bladder, NOS Type 2 diabetes mellitus with hyperglycemia, with long-term current use of insulin ([facility]) Pre-op evaluation- Primary Preoperative examination, unspecified Spina bifida, unspecified hydrocephalus presence, unspecified spinal region ([facility]) Mixed hyperlipidemia Essential hypertension Unspecified essential hypertension Diabetes mellitus with peripheral vascular disease ([facility]) Type II or unspecified type diabetes mellitus with peripheral circulatory disorders, not stated as uncontrolled Neurogenic bowel Fatty liver Other chronic nonalcoholic liver disease Neurogenic bladder Neurogenic bladder, NOS Anxiety and depression Dysthymic disorder Bilateral leg edema Edema Colostomy in place ([facility]) Colostomy status Paroxysmal SVT (supraventricular tachycardia) ([facility]) Paroxysmal supraventricular tachycardia Tethered cord ([facility]) Other specified congenital anomaly of spinal cord Pre-op testing Preoperative examination, unspecified 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 of spleen Left upper quadrant pain Abdominal pain, left upper quadrant Encounter for screening for cardiovascular disorders Screening for other and unspecified cardiovascular conditions [facility] Diagnosis Preoperative testing- Primary Preoperative examination, unspecified Neurogenic bladder Neurogenic bladder, NOS Spina bifida, unspecified hydrocephalus presence, unspecified spinal region (HCC) Morbid obesity (HCC) Morbid obesity Mixed hyperlipidemia 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) Paroxysmal SVT (supraventricular tachycardia) (HCC) Paroxysmal supraventricular tachycardia Migraine without aura and without status migrainosus, not intractable Migraine without aura, without mention of intractable migraine without mention of status migrainosus Anxiety Anxiety state, unspecified Pre-operative examination- Primary Preoperative examination, unspecified Bladder stone Other calculus in bladder Migraine without aura and without status migrainosus, not intractable Migraine without aura, without mention of intractable migraine without mention of status migrainosus Numbness and tingling of left arm and leg Disturbance of skin sensation Spina bifida, unspecified hydrocephalus presence, unspecified spinal region (HCC) Essential hypertension Unspecified essential hypertension Mixed hyperlipidemia Paroxysmal SVT (supraventricular tachycardia) (HCC) Paroxysmal supraventricular tachycardia Fatty liver Other chronic nonalcoholic liver disease Neurogenic bowel DM (diabetes mellitus), secondary, uncontrolled, w/renal complications Secondary diabetes mellitus with renal manifestations, uncontrolled Neurogenic bladder Neurogenic bladder, NOS Amputation of left great toe ([facility]) Low back pain, unspecified back pain laterality, unspecified chronicity, unspecified whether sciatica present Dysthymic disorder History of recurrent UTIs Personal history of urinary (tract) infection Obesity, Class III, BMI 40-49.9 (morbid obesity) ([facility]) Morbid obesity Post-op pain Other acute postoperative pain Type 2 diabetes mellitus with hyperglycemia, with long-term current use of insulin (HCC) Paroxysmal SVT (supraventricular tachycardia) (HCC) Paroxysmal supraventricular tachycardia Neurogenic bowel Encounter for care or replacement of suprapubic tube ([facility]) Attention to cystostomy Type 2 diabetes mellitus with albuminuria ([facility]) ([facility]) Preoperative examination- Primary Preoperative examination, unspecified Colonic dysmotility Unspecified functional disorder of intestine Constipation due to outlet dysfunction Morbid obesity with BMI of 40.0-44.9, adult (HCC) Morbid obesity Migraine without aura and without status migrainosus, not intractable Migraine without aura, without mention of intractable migraine without mention of status migrainosus History of Manley's palsy Personal history of other disorders of nervous system and sense organs Spina bifida, unspecified hydrocephalus presence, unspecified spinal region (HCC) Essential hypertension Unspecified essential hypertension Mixed hyperlipidemia Paroxysmal SVT (supraventricular tachycardia) (HCC) Paroxysmal supraventricular tachycardia Neurogenic bladder Neurogenic bladder, NOS Type 2 diabetes mellitus with hyperglycemia, with long-term current use of insulin (HCC) Pre-op evaluation- Primary Preoperative examination, unspecified Spina bifida, unspecified hydrocephalus presence, unspecified spinal region (HCC) Mixed hyperlipidemia Essential hypertension Unspecified essential hypertension Diabetes mellitus with peripheral vascular disease (HCC) Type II or unspecified type diabetes mellitus with peripheral circulatory disorders, not stated as uncontrolled Neurogenic bowel Fatty liver Other chronic nonalcoholic liver disease Neurogenic bladder Neurogenic bladder, NOS Anxiety and depression Dysthymic disorder Bilateral leg edema Edema Colostomy in place (HCC) Colostomy status Paroxysmal SVT (supraventricular tachycardia) (HCC) Paroxysmal supraventricular tachycardia 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 Pre-op testing Preoperative examination, unspecified Obesity, Class II, BMI 35-39.9- Primary Obesity, unspecified Oropharyngeal dysphagia Dysphagia, oropharyngeal phase [facility]* Diagnosis Preoperative testing- Primary Preoperative examination, unspecified Neurogenic bladder Neurogenic bladder, NOS Spina bifida, unspecified hydrocephalus presence, unspecified spinal region (HCC) Morbid obesity (HCC) Morbid obesity Mixed hyperlipidemia 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) Paroxysmal SVT (supraventricular tachycardia) (HCC) Paroxysmal supraventricular tachycardia Migraine without aura and without status migrainosus, not intractable Migraine without aura, without mention of intractable migraine without mention of status migrainosus Anxiety Anxiety state, unspecified Pre-operative examination- Primary Preoperative examination, unspecified Bladder stone Other calculus in bladder Migraine without aura and without status migrainosus, not intractable Migraine without aura, without mention of intractable migraine without mention of status migrainosus Numbness and tingling of left arm and leg Disturbance of skin sensation Spina bifida, unspecified hydrocephalus presence, unspecified spinal region (HCC) Essential hypertension Unspecified essential hypertension Mixed hyperlipidemia Paroxysmal SVT (supraventricular tachycardia) (HCC) Paroxysmal supraventricular tachycardia Fatty liver Other chronic nonalcoholic liver disease Neurogenic bowel DM (diabetes mellitus), secondary, uncontrolled, w/renal complications Secondary diabetes mellitus with renal manifestations, uncontrolled Neurogenic bladder Neurogenic bladder, NOS Amputation of left great toe (HCC) Low back pain, unspecified back pain laterality, unspecified chronicity, unspecified whether sciatica present Dysthymic disorder History of recurrent UTIs Personal history of urinary (tract) infection Obesity, Class III, BMI 40-49.9 (morbid obesity) ([facility]) Morbid obesity Post-op pain Other acute postoperative pain Type 2 diabetes mellitus with hyperglycemia, with long-term current use of insulin ([facility]) Paroxysmal SVT (supraventricular tachycardia) ([facility]) Paroxysmal supraventricular tachycardia Neurogenic bowel Encounter for care or replacement of suprapubic tube ([facility]) Attention to cystostomy Type 2 diabetes mellitus with albuminuria ([facility]) ([facility]) Preoperative examination- Primary Preoperative examination, unspecified Colonic dysmotility Unspecified functional disorder of intestine Constipation due to outlet dysfunction Morbid obesity with BMI of 40.0-44.9, adult ([facility]) Morbid obesity Migraine without aura and without status migrainosus, not intractable Migraine without aura, without mention of intractable migraine without mention of status migrainosus History of Manley's palsy Personal history of other disorders of nervous system and sense organs Spina bifida, unspecified hydrocephalus presence, unspecified spinal region ([facility]) Essential hypertension Unspecified essential hypertension Mixed hyperlipidemia Paroxysmal SVT (supraventricular tachycardia) ([facility]) Paroxysmal supraventricular tachycardia Neurogenic bladder Neurogenic bladder, NOS Type 2 diabetes mellitus with hyperglycemia, with long-term current use of insulin ([facility]) Pre-op evaluation- Primary Preoperative examination, unspecified Spina bifida, unspecified hydrocephalus presence, unspecified spinal region ([facility]) Mixed hyperlipidemia Essential hypertension Unspecified essential hypertension Diabetes mellitus with peripheral vascular disease ([facility]) Type II or unspecified type diabetes mellitus with peripheral circulatory disorders, not stated as uncontrolled Neurogenic bowel Fatty liver Other chronic nonalcoholic liver disease Neurogenic bladder Neurogenic bladder, NOS Anxiety and depression Dysthymic disorder Bilateral leg edema Edema Colostomy in place ([facility]) Colostomy status Paroxysmal SVT (supraventricular tachycardia) (HCC) Paroxysmal supraventricular tachycardia Tethered cord ([facility]) Other specified congenital anomaly of spinal cord Pre-op testing Preoperative examination, unspecified Oropharyngeal dysphagia- Primary Dysphagia, oropharyngeal phase [facility] Diagnosis Preoperative testing- Primary Preoperative examination, unspecified Neurogenic bladder Neurogenic bladder, NOS Spina bifida, unspecified hydrocephalus presence, unspecified spinal region ([facility]) Morbid obesity (HCC) Morbid obesity Mixed hyperlipidemia Type 2 diabetes mellitus with proteinuria ([facility]) ([facility]) Paroxysmal SVT (supraventricular tachycardia) ([facility]) Paroxysmal supraventricular tachycardia Migraine without aura and without status migrainosus, not intractable Migraine without aura, without mention of intractable migraine without mention of status migrainosus Anxiety Anxiety state, unspecified Pre-operative examination- Primary Preoperative examination, unspecified Bladder stone Other calculus in bladder Migraine without aura and without status migrainosus, not intractable Migraine without aura, without mention of intractable migraine without mention of status migrainosus Numbness and tingling of left arm and leg Disturbance of skin sensation Spina bifida, unspecified hydrocephalus presence, unspecified spinal region (HCC) Essential hypertension Unspecified essential hypertension Mixed hyperlipidemia Paroxysmal SVT (supraventricular tachycardia) (HCC) Paroxysmal supraventricular tachycardia Fatty liver Other chronic nonalcoholic liver disease Neurogenic bowel DM (diabetes mellitus), secondary, uncontrolled, w/renal complications Secondary diabetes mellitus with renal manifestations, uncontrolled Neurogenic bladder Neurogenic bladder, NOS Amputation of left great toe ([facility]) Low back pain, unspecified back pain laterality, unspecified chronicity, unspecified whether sciatica present Dysthymic disorder History of recurrent UTIs Personal history of urinary (tract) infection Obesity, Class III, BMI 40-49.9 (morbid obesity) ([facility]) Morbid obesity Post-op pain Other acute postoperative pain Type 2 diabetes mellitus with hyperglycemia, with long-term current use of insulin ([facility]) Paroxysmal SVT (supraventricular tachycardia) ([facility]) Paroxysmal supraventricular tachycardia Neurogenic bowel Encounter for care or replacement of suprapubic tube ([facility]) Attention to cystostomy Type 2 diabetes mellitus with albuminuria ([facility]) ([facility]) Preoperative examination- Primary Preoperative examination, unspecified Colonic dysmotility Unspecified functional disorder of intestine Constipation due to outlet dysfunction Morbid obesity with BMI of 40.0-44.9, adult ([facility]) Morbid obesity Migraine without aura and without status migrainosus, not intractable Migraine without aura, without mention of intractable migraine without mention of status migrainosus History of Manley's palsy Personal history of other disorders of nervous system and sense organs Spina bifida, unspecified hydrocephalus presence, unspecified spinal region ([facility]) Essential hypertension Unspecified essential hypertension Mixed hyperlipidemia Paroxysmal SVT (supraventricular tachycardia) ([facility]) Paroxysmal supraventricular tachycardia Neurogenic bladder Neurogenic bladder, NOS Type 2 diabetes mellitus with hyperglycemia, with long-term current use of insulin ([facility]) Pre-op evaluation- Primary Preoperative examination, unspecified Spina bifida, unspecified hydrocephalus presence, unspecified spinal region ([facility]) Mixed hyperlipidemia Essential hypertension Unspecified essential hypertension Diabetes mellitus with peripheral vascular disease (HCC) Type II or unspecified type diabetes mellitus with peripheral circulatory disorders, not stated as uncontrolled Neurogenic bowel Fatty liver Other chronic nonalcoholic liver disease Neurogenic bladder Neurogenic bladder, NOS Anxiety and depression Dysthymic disorder Bilateral leg edema Edema Colostomy in place (HCC) Colostomy status Paroxysmal SVT (supraventricular tachycardia) (HCC) Paroxysmal supraventricular tachycardia 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 Pre-op testing Preoperative examination, unspecified Neurogenic bladder- Primary Neurogenic bladder, NOS documented in this encounter [facility]* Diagnosis Preoperative testing- Primary Preoperative examination, unspecified Neurogenic bladder Neurogenic bladder, NOS Spina bifida, unspecified hydrocephalus presence, unspecified spinal region (HCC) Morbid obesity (HCC) Morbid obesity Mixed hyperlipidemia 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) ([facility]) Paroxysmal SVT (supraventricular tachycardia) ([facility]) Paroxysmal supraventricular tachycardia Migraine without aura and without status migrainosus, not intractable Migraine without aura, without mention of intractable migraine without mention of status migrainosus Anxiety Anxiety state, unspecified Pre-operative examination- Primary Preoperative examination, unspecified Bladder stone Other calculus in bladder Migraine without aura and without status migrainosus, not intractable Migraine without aura, without mention of intractable migraine without mention of status migrainosus Numbness and tingling of left arm and leg Disturbance of skin sensation Spina bifida, unspecified hydrocephalus presence, unspecified spinal region (HCC) Essential hypertension Unspecified essential hypertension Mixed hyperlipidemia Paroxysmal SVT (supraventricular tachycardia) (HCC) Paroxysmal supraventricular tachycardia Fatty liver Other chronic nonalcoholic liver disease Neurogenic bowel DM (diabetes mellitus), secondary, uncontrolled, w/renal complications Secondary diabetes mellitus with renal manifestations, uncontrolled Neurogenic bladder Neurogenic bladder, NOS Amputation of left great toe ([facility]) Low back pain, unspecified back pain laterality, unspecified chronicity, unspecified whether sciatica present Dysthymic disorder History of recurrent UTIs Personal history of urinary (tract) infection Obesity, Class III, BMI 40-49.9 (morbid obesity) ([facility]) Morbid obesity Post-op pain Other acute postoperative pain Type 2 diabetes mellitus with hyperglycemia, with long-term current use of insulin (HCC) Paroxysmal SVT (supraventricular tachycardia) (HCC) Paroxysmal supraventricular tachycardia Neurogenic bowel Encounter for care or replacement of suprapubic tube ([facility]) Attention to cystostomy Preoperative examination- Primary Preoperative examination, unspecified Colonic dysmotility Unspecified functional disorder of intestine Constipation due to outlet dysfunction Morbid obesity with BMI of 40.0-44.9, adult ([facility]) Morbid obesity Migraine without aura and without status migrainosus, not intractable Migraine without aura, without mention of intractable migraine without mention of status migrainosus History of Manley's palsy Personal history of other disorders of nervous system and sense organs Spina bifida, unspecified hydrocephalus presence, unspecified spinal region ([facility]) Essential hypertension Unspecified essential hypertension Mixed hyperlipidemia Paroxysmal SVT (supraventricular tachycardia) ([facility]) Paroxysmal supraventricular tachycardia Neurogenic bladder Neurogenic bladder, NOS Type 2 diabetes mellitus with hyperglycemia, with long-term current use of insulin ([facility]) Pre-op evaluation- Primary Preoperative examination, unspecified Spina bifida, unspecified hydrocephalus presence, unspecified spinal region ([facility]) Mixed hyperlipidemia Essential hypertension Unspecified essential hypertension Diabetes mellitus with peripheral vascular disease ([facility]) Type II or unspecified type diabetes mellitus with peripheral circulatory disorders, not stated as uncontrolled Neurogenic bowel Fatty liver Other chronic nonalcoholic liver disease Neurogenic bladder Neurogenic bladder, NOS Anxiety and depression Dysthymic disorder Bilateral leg edema Edema Colostomy in place ([facility]) Colostomy status Paroxysmal SVT (supraventricular tachycardia) (HCC) Paroxysmal supraventricular tachycardia Tethered cord ([facility]) Other specified congenital anomaly of spinal cord Pre-op testing Preoperative examination, unspecified Type 2 diabetes mellitus with proteinuria ([facility]) ([facility])- Primary Type 2 diabetes mellitus with albuminuria ([facility]) ([facility]) Diabetes mellitus with peripheral vascular disease ([facility]) Type II or unspecified type diabetes mellitus with peripheral circulatory disorders, not stated as uncontrolled Diabetic eye exam ([facility]) Type II or unspecified type diabetes mellitus without mention of complication, not stated as uncontrolled Essential hypertension Unspecified essential hypertension Mixed hyperlipidemia Paroxysmal SVT (supraventricular tachycardia) (HCC) Paroxysmal supraventricular tachycardia Primary insomnia Persistent disorder of initiating or maintaining sleep Neuropathy Mononeuritis of unspecified site Bilateral leg edema Edema Anxiety and depression Dysthymic disorder Dysthymic disorder Major depressive disorder, recurrent, mild (HCC) Major depressive disorder, recurrent episode, mild Panic attacks Panic disorder without agoraphobia Migraine without aura and without status migrainosus, not intractable Migraine without aura, without mention of intractable migraine without mention of status migrainosus Thyroid cyst Cyst of thyroid Hypomagnesemia Disorders of magnesium metabolism Lipomeningocele (HCC) Spina bifida without mention of hydrocephalus, unspecified region Obesity, Class II, BMI 35-39.9 Obesity, unspecified Spina bifida, unspecified hydrocephalus presence, unspecified spinal region ([facility]) Encounter for screening mammogram for breast cancer Esophageal dysphagia Dysphagia, pharyngoesophageal phase Nausea Nausea alone documented in this encounter [facility] note* Diagnosis Preoperative testing- Primary Preoperative examination, unspecified Neurogenic bladder Neurogenic bladder, NOS Spina bifida, unspecified hydrocephalus presence, unspecified spinal region (HCC) Morbid obesity (HCC) Morbid obesity Mixed hyperlipidemia 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) Paroxysmal SVT (supraventricular tachycardia) ([facility]) Paroxysmal supraventricular tachycardia Migraine without aura and without status migrainosus, not intractable Migraine without aura, without mention of intractable migraine without mention of status migrainosus Anxiety Anxiety state, unspecified Pre-operative examination- Primary Preoperative examination, unspecified Bladder stone Other calculus in bladder Migraine without aura and without status migrainosus, not intractable Migraine without aura, without mention of intractable migraine without mention of status migrainosus Numbness and tingling of left arm and leg Disturbance of skin sensation Spina bifida, unspecified hydrocephalus presence, unspecified spinal region (HCC) Essential hypertension Unspecified essential hypertension Mixed hyperlipidemia Paroxysmal SVT (supraventricular tachycardia) (HCC) Paroxysmal supraventricular tachycardia Fatty liver Other chronic nonalcoholic liver disease Neurogenic bowel DM (diabetes mellitus), secondary, uncontrolled, w/renal complications Secondary diabetes mellitus with renal manifestations, uncontrolled Neurogenic bladder Neurogenic bladder, NOS Amputation of left great toe ([facility]) Low back pain, unspecified back pain laterality, unspecified chronicity, unspecified whether sciatica present Dysthymic disorder History of recurrent UTIs Personal history of urinary (tract) infection Obesity, Class III, BMI 40-49.9 (morbid obesity) ([facility]) Morbid obesity Post-op pain Other acute postoperative pain Type 2 diabetes mellitus with hyperglycemia, with long-term current use of insulin (HCC) Paroxysmal SVT (supraventricular tachycardia) ([facility]) Paroxysmal supraventricular tachycardia Neurogenic bowel Encounter for care or replacement of suprapubic tube ([facility]) Attention to cystostomy Preoperative examination- Primary Preoperative examination, unspecified Colonic dysmotility Unspecified functional disorder of intestine Constipation due to outlet dysfunction Morbid obesity with BMI of 40.0-44.9, adult ([facility]) Morbid obesity Migraine without aura and without status migrainosus, not intractable Migraine without aura, without mention of intractable migraine without mention of status migrainosus History of Manley's palsy Personal history of other disorders of nervous system and sense organs Spina bifida, unspecified hydrocephalus presence, unspecified spinal region (HCC) Essential hypertension Unspecified essential hypertension Mixed hyperlipidemia Paroxysmal SVT (supraventricular tachycardia) (HCC) Paroxysmal supraventricular tachycardia Neurogenic bladder Neurogenic bladder, NOS Type 2 diabetes mellitus with hyperglycemia, with long-term current use of insulin (HCC) Pre-op evaluation- Primary Preoperative examination, unspecified Spina bifida, unspecified hydrocephalus presence, unspecified spinal region (HCC) Mixed hyperlipidemia Essential hypertension Unspecified essential hypertension Diabetes mellitus with peripheral vascular disease (HCC) Type II or unspecified type diabetes mellitus with peripheral circulatory disorders, not stated as uncontrolled Neurogenic bowel Fatty liver Other chronic nonalcoholic liver disease Neurogenic bladder Neurogenic bladder, NOS Anxiety and depression Dysthymic disorder Bilateral leg edema Edema Colostomy in place (HCC) Colostomy status Paroxysmal SVT (supraventricular tachycardia) (HCC) Paroxysmal supraventricular tachycardia 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 Pre-op testing Preoperative examination, unspecified 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 [facility] Preoperative testing- Primary Preoperative examination, unspecified Neurogenic bladder Neurogenic bladder, NOS Spina bifida, unspecified hydrocephalus presence, unspecified spinal region (HCC) Morbid obesity (HCC) Morbid obesity Mixed hyperlipidemia 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) Paroxysmal SVT (supraventricular tachycardia) (HCC) Paroxysmal supraventricular tachycardia Migraine without aura and without status migrainosus, not intractable Migraine without aura, without mention of intractable migraine without mention of status migrainosus Anxiety Anxiety state, unspecified Pre-operative examination- Primary Preoperative examination, unspecified Bladder stone Other calculus in bladder Migraine without aura and without status migrainosus, not intractable Migraine without aura, without mention of intractable migraine without mention of status migrainosus Numbness and tingling of left arm and leg Disturbance of skin sensation Spina bifida, unspecified hydrocephalus presence, unspecified spinal region (HCC) Essential hypertension Unspecified essential hypertension Mixed hyperlipidemia Paroxysmal SVT (supraventricular tachycardia) (HCC) Paroxysmal supraventricular tachycardia Fatty liver Other chronic nonalcoholic liver disease Neurogenic bowel DM (diabetes mellitus), secondary, uncontrolled, w/renal complications Secondary diabetes mellitus with renal manifestations, uncontrolled Neurogenic bladder Neurogenic bladder, NOS Amputation of left great toe (HCC) Low back pain, unspecified back pain laterality, unspecified chronicity, unspecified whether sciatica present Dysthymic disorder History of recurrent UTIs Personal history of urinary (tract) infection Obesity, Class III, BMI 40-49.9 (morbid obesity) ([facility]) Morbid obesity Post-op pain Other acute postoperative pain Type 2 diabetes mellitus with hyperglycemia, with long-term current use of insulin ([facility]) Paroxysmal SVT (supraventricular tachycardia) ([facility]) Paroxysmal supraventricular tachycardia Neurogenic bowel Encounter for care or replacement of suprapubic tube ([facility]) Attention to cystostomy Preoperative examination- Primary Preoperative examination, unspecified Colonic dysmotility Unspecified functional disorder of intestine Constipation due to outlet dysfunction Morbid obesity with BMI of 40.0-44.9, adult ([facility]) Morbid obesity Migraine without aura and without status migrainosus, not intractable Migraine without aura, without mention of intractable migraine without mention of status migrainosus History of Manley's palsy Personal history of other disorders of nervous system and sense organs Spina bifida, unspecified hydrocephalus presence, unspecified spinal region ([facility]) Essential hypertension Unspecified essential hypertension Mixed hyperlipidemia Paroxysmal SVT (supraventricular tachycardia) (HCC) Paroxysmal supraventricular tachycardia Neurogenic bladder Neurogenic bladder, NOS Type 2 diabetes mellitus with hyperglycemia, with long-term current use of insulin ([facility]) Pre-op evaluation- Primary Preoperative examination, unspecified Spina bifida, unspecified hydrocephalus presence, unspecified spinal region ([facility]) Mixed hyperlipidemia Essential hypertension Unspecified essential hypertension Diabetes mellitus with peripheral vascular disease ([facility]) Type II or unspecified type diabetes mellitus with peripheral circulatory disorders, not stated as uncontrolled Neurogenic bowel Fatty liver Other chronic nonalcoholic liver disease Neurogenic bladder Neurogenic bladder, NOS Anxiety and depression Dysthymic disorder Bilateral leg edema Edema Colostomy in place (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) Paroxysmal SVT (supraventricular tachycardia) ([facility]) Paroxysmal supraventricular tachycardia Migraine without aura and without status migrainosus, not intractable Migraine without aura, without mention of intractable migraine without mention of status migrainosus Anxiety Anxiety state, unspecified Pre-operative examination- Primary Preoperative examination, unspecified Bladder stone Other calculus in bladder Migraine without aura and without status migrainosus, not intractable Migraine without aura, without mention of intractable migraine without mention of status migrainosus Numbness and tingling of left arm and leg Disturbance of skin sensation Spina bifida, unspecified hydrocephalus presence, unspecified spinal region (HCC) Essential hypertension Unspecified essential hypertension Mixed hyperlipidemia Paroxysmal SVT (supraventricular tachycardia) (HCC) Paroxysmal supraventricular tachycardia Fatty liver Other chronic nonalcoholic liver disease Neurogenic bowel DM (diabetes mellitus), secondary, uncontrolled, w/renal complications Secondary diabetes mellitus with renal manifestations, uncontrolled Neurogenic bladder Neurogenic bladder, NOS Amputation of left great toe ([facility]) Low back pain, unspecified back pain laterality, unspecified chronicity, unspecified whether sciatica present Dysthymic disorder History of recurrent UTIs Personal history of urinary (tract) infection Obesity, Class III, BMI 40-49.9 (morbid obesity) ([facility]) Morbid obesity Post-op pain Other acute postoperative pain Type 2 diabetes mellitus with hyperglycemia, with long-term current use of insulin ([facility]) Paroxysmal SVT (supraventricular tachycardia) ([facility]) Paroxysmal supraventricular tachycardia Neurogenic bowel Encounter for care or replacement of suprapubic tube ([facility]) Attention to cystostomy Preoperative examination- Primary Preoperative examination, unspecified Colonic dysmotility Unspecified functional disorder of intestine Constipation due to outlet dysfunction Morbid obesity with BMI of 40.0-44.9, adult ([facility]) Morbid obesity Migraine without aura and without status migrainosus, not intractable Migraine without aura, without mention of intractable migraine without mention of status migrainosus History of Manley's palsy Personal history of other disorders of nervous system and sense organs Spina bifida, unspecified hydrocephalus presence, unspecified spinal region (HCC) Essential hypertension Unspecified essential hypertension Mixed hyperlipidemia Paroxysmal SVT (supraventricular tachycardia) (HCC) Paroxysmal supraventricular tachycardia Neurogenic bladder Neurogenic bladder, NOS Type 2 diabetes mellitus with hyperglycemia, with long-term current use of insulin ([facility]) Pre-op evaluation- Primary Preoperative examination, unspecified Spina bifida, unspecified hydrocephalus presence, unspecified spinal region (HCC) Mixed hyperlipidemia Essential hypertension Unspecified essential hypertension Diabetes mellitus with peripheral vascular disease (HCC) Type II or unspecified type diabetes mellitus with peripheral circulatory disorders, not stated as uncontrolled Neurogenic bowel Fatty liver Other chronic nonalcoholic liver disease Neurogenic bladder Neurogenic bladder, NOS Anxiety and depression Dysthymic disorder Bilateral leg edema Edema Colostomy in place (HCC) Colostomy status Paroxysmal SVT (supraventricular tachycardia) (HCC) Paroxysmal supraventricular tachycardia 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 Pre-op testing Preoperative examination, unspecified Encounter for screening mammogram for breast cancer documented in this encounter [facility]* Diagnosis Preoperative testing- Primary Preoperative examination, unspecified Neurogenic bladder Neurogenic bladder, NOS Spina bifida, unspecified hydrocephalus presence, unspecified spinal region (HCC) Morbid obesity (HCC) Morbid obesity Mixed hyperlipidemia 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) Paroxysmal SVT (supraventricular tachycardia) (HCC) Paroxysmal supraventricular tachycardia Migraine without aura and without status migrainosus, not intractable Migraine without aura, without mention of intractable migraine without mention of status migrainosus Anxiety Anxiety state, unspecified Pre-operative examination- Primary Preoperative examination, unspecified Bladder stone Other calculus in bladder Migraine without aura and without status migrainosus, not intractable Migraine without aura, without mention of intractable migraine without mention of status migrainosus Numbness and tingling of left arm and leg Disturbance of skin sensation Spina bifida, unspecified hydrocephalus presence, unspecified spinal region (HCC) Essential hypertension Unspecified essential hypertension Mixed hyperlipidemia Paroxysmal SVT (supraventricular tachycardia) (HCC) Paroxysmal supraventricular tachycardia Fatty liver Other chronic nonalcoholic liver disease Neurogenic bowel DM (diabetes mellitus), secondary, uncontrolled, w/renal complications Secondary diabetes mellitus with renal manifestations, uncontrolled Neurogenic bladder Neurogenic bladder, NOS Amputation of left great toe (HCC) Low back pain, unspecified back pain laterality, unspecified chronicity, unspecified whether sciatica present Dysthymic disorder History of recurrent UTIs Personal history of urinary (tract) infection Obesity, Class III, BMI 40-49.9 (morbid obesity) (HCC) Morbid obesity Post-op pain Other acute postoperative pain Type 2 diabetes mellitus with hyperglycemia, with long-term current use of insulin (HCC) Paroxysmal SVT (supraventricular tachycardia) (HCC) Paroxysmal supraventricular tachycardia Neurogenic bowel Encounter for care or replacement of suprapubic tube (HCC) Attention to cystostomy Preoperative examination- Primary Preoperative examination, unspecified Colonic dysmotility Unspecified functional disorder of intestine Constipation due to outlet dysfunction Morbid obesity with BMI of 40.0-44.9, adult (HCC) Morbid obesity Migraine without aura and without status migrainosus, not intractable Migraine without aura, without mention of intractable migraine without mention of status migrainosus History of Manley's palsy Personal history of other disorders of nervous system and sense organs Spina bifida, unspecified hydrocephalus presence, unspecified spinal region (HCC) Essential hypertension Unspecified essential hypertension Mixed hyperlipidemia Paroxysmal SVT (supraventricular tachycardia) (HCC) Paroxysmal supraventricular tachycardia Neurogenic bladder Neurogenic bladder, NOS Type 2 diabetes mellitus with hyperglycemia, with long-term current use of insulin (HCC) Pre-op evaluation- Primary Preoperative examination, unspecified Spina bifida, unspecified hydrocephalus presence, unspecified spinal region (HCC) Mixed hyperlipidemia Essential hypertension Unspecified essential hypertension Diabetes mellitus with peripheral vascular disease (HCC) Type II or unspecified type diabetes mellitus with peripheral circulatory disorders, not stated as uncontrolled Neurogenic bowel Fatty liver Other chronic nonalcoholic liver disease Neurogenic bladder Neurogenic bladder, NOS Anxiety and depression Dysthymic disorder Bilateral leg edema Edema Colostomy in place (HCC) Colostomy status Paroxysmal SVT (supraventricular tachycardia) (HCC) Paroxysmal supraventricular tachycardia 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 Pre-op testing Preoperative examination, unspecified Thyroid cyst- Primary Cyst of [facility] Preoperative testing- Primary Preoperative examination, unspecified Neurogenic bladder Neurogenic bladder, NOS Spina bifida, unspecified hydrocephalus presence, unspecified spinal region (HCC) Morbid obesity (HCC) Morbid obesity Mixed hyperlipidemia 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) Paroxysmal SVT (supraventricular tachycardia) (HCC) Paroxysmal supraventricular tachycardia Migraine without aura and without status migrainosus, not intractable Migraine without aura, without mention of intractable migraine without mention of status migrainosus Anxiety Anxiety state, unspecified Pre-operative examination- Primary Preoperative examination, unspecified Bladder stone Other calculus in bladder Migraine without aura and without status migrainosus, not intractable Migraine without aura, without mention of intractable migraine without mention of status migrainosus Numbness and tingling of left arm and leg Disturbance of skin sensation Spina bifida, unspecified hydrocephalus presence, unspecified spinal region (HCC) Essential hypertension Unspecified essential hypertension Mixed hyperlipidemia Paroxysmal SVT (supraventricular tachycardia) (HCC) Paroxysmal supraventricular tachycardia Fatty liver Other chronic nonalcoholic liver disease Neurogenic bowel DM (diabetes mellitus), secondary, uncontrolled, w/renal complications Secondary diabetes mellitus with renal manifestations, uncontrolled Neurogenic bladder Neurogenic bladder, NOS Amputation of left great toe ([facility]) Low back pain, unspecified back pain laterality, unspecified chronicity, unspecified whether sciatica present Dysthymic disorder History of recurrent UTIs Personal history of urinary (tract) infection Obesity, Class III, BMI 40-49.9 (morbid obesity) ([facility]) Morbid obesity Post-op pain Other acute postoperative pain Type 2 diabetes mellitus with hyperglycemia, with long-term current use of insulin ([facility]) Paroxysmal SVT (supraventricular tachycardia) ([facility]) Paroxysmal supraventricular tachycardia Neurogenic bowel Encounter for care or replacement of suprapubic tube ([facility]) Attention to cystostomy Preoperative examination- Primary Preoperative examination, unspecified Colonic dysmotility Unspecified functional disorder of intestine Constipation due to outlet dysfunction Morbid obesity with BMI of 40.0-44.9, adult ([facility]) Morbid obesity Migraine without aura and without status migrainosus, not intractable Migraine without aura, without mention of intractable migraine without mention of status migrainosus History of Manley's palsy Personal history of other disorders of nervous system and sense organs Spina bifida, unspecified hydrocephalus presence, unspecified spinal region ([facility]) Essential hypertension Unspecified essential hypertension Mixed hyperlipidemia Paroxysmal SVT (supraventricular tachycardia) ([facility]) Paroxysmal supraventricular tachycardia Neurogenic bladder Neurogenic bladder, NOS Type 2 diabetes mellitus with hyperglycemia, with long-term current use of insulin ([facility]) Pre-op evaluation- Primary Preoperative examination, unspecified Spina bifida, unspecified hydrocephalus presence, unspecified spinal region ([facility]) Mixed hyperlipidemia Essential hypertension Unspecified essential hypertension Diabetes mellitus with peripheral vascular disease ([facility]) Type II or unspecified type diabetes mellitus with peripheral circulatory disorders, not stated as uncontrolled Neurogenic bowel Fatty liver Other chronic nonalcoholic liver disease Neurogenic bladder Neurogenic bladder, NOS Anxiety and depression Dysthymic disorder Bilateral leg edema Edema Colostomy in place ([facility]) Colostomy status Paroxysmal SVT (supraventricular tachycardia) ([facility]) Paroxysmal supraventricular tachycardia Tethered cord ([facility]) Other specified congenital anomaly of spinal cord Pre-op testing Preoperative examination, unspecified Type 2 diabetes mellitus without retinopathy (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) Paroxysmal SVT (supraventricular tachycardia) (HCC) Paroxysmal supraventricular tachycardia Migraine without aura and without status migrainosus, not intractable Migraine without aura, without mention of intractable migraine without mention of status migrainosus Anxiety Anxiety state, unspecified Pre-operative examination- Primary Preoperative examination, unspecified Bladder stone Other calculus in bladder Migraine without aura and without status migrainosus, not intractable Migraine without aura, without mention of intractable migraine without mention of status migrainosus Numbness and tingling of left arm and leg Disturbance of skin sensation Spina bifida, unspecified hydrocephalus presence, unspecified spinal region (HCC) Essential hypertension Unspecified essential hypertension Mixed hyperlipidemia Paroxysmal SVT (supraventricular tachycardia) (HCC) Paroxysmal supraventricular tachycardia Fatty liver Other chronic nonalcoholic liver disease Neurogenic bowel DM (diabetes mellitus), secondary, uncontrolled, w/renal complications Secondary diabetes mellitus with renal manifestations, uncontrolled Neurogenic bladder Neurogenic bladder, NOS Amputation of left great toe ([facility]) Low back pain, unspecified back pain laterality, unspecified chronicity, unspecified whether sciatica present Dysthymic disorder History of recurrent UTIs Personal history of urinary (tract) infection Obesity, Class III, BMI 40-49.9 (morbid obesity) (HCC) Morbid obesity Post-op pain Other acute postoperative pain Type 2 diabetes mellitus with hyperglycemia, with long-term current use of insulin (HCC) Paroxysmal SVT (supraventricular tachycardia) (HCC) Paroxysmal supraventricular tachycardia Neurogenic bowel Encounter for care or replacement of suprapubic tube ([facility]) Attention to cystostomy Preoperative examination- Primary Preoperative examination, unspecified Colonic dysmotility Unspecified functional disorder of intestine Constipation due to outlet dysfunction Morbid obesity with BMI of 40.0-44.9, adult (HCC) Morbid obesity Migraine without aura and without status migrainosus, not intractable Migraine without aura, without mention of intractable migraine without mention of status migrainosus History of Manley's palsy Personal history of other disorders of nervous system and sense organs Spina bifida, unspecified hydrocephalus presence, unspecified spinal region (HCC) Essential hypertension Unspecified essential hypertension Mixed hyperlipidemia Paroxysmal SVT (supraventricular tachycardia) (HCC) Paroxysmal supraventricular tachycardia Neurogenic bladder Neurogenic bladder, NOS Type 2 diabetes mellitus with hyperglycemia, with long-term current use of insulin (HCC) Pre-op evaluation- Primary Preoperative examination, unspecified Spina bifida, unspecified hydrocephalus presence, unspecified spinal region (HCC) Mixed hyperlipidemia Essential hypertension Unspecified essential hypertension Diabetes mellitus with peripheral vascular disease (HCC) Type II or unspecified type diabetes mellitus with peripheral circulatory disorders, not stated as uncontrolled Neurogenic bowel Fatty liver Other chronic nonalcoholic liver disease Neurogenic bladder Neurogenic bladder, NOS Anxiety and depression Dysthymic disorder Bilateral leg edema Edema Colostomy in place (HCC) Colostomy status Paroxysmal SVT (supraventricular tachycardia) (HCC) Paroxysmal supraventricular tachycardia 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 Pre-op testing Preoperative examination, unspecified Neurogenic bladder- Primary Neurogenic bladder, NOS documented in this encounter [facility] note* Diagnosis Preoperative testing- Primary Preoperative examination, unspecified Neurogenic bladder Neurogenic bladder, NOS Spina bifida, unspecified hydrocephalus presence, unspecified spinal region (HCC) Morbid obesity (HCC) Morbid obesity Mixed hyperlipidemia 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) Paroxysmal SVT (supraventricular tachycardia) (HCC) Paroxysmal supraventricular tachycardia Migraine without aura and without status migrainosus, not intractable Migraine without aura, without mention of intractable migraine without mention of status migrainosus Anxiety Anxiety state, unspecified Pre-operative examination- Primary Preoperative examination, unspecified Bladder stone Other calculus in bladder Migraine without aura and without status migrainosus, not intractable Migraine without aura, without mention of intractable migraine without mention of status migrainosus Numbness and tingling of left arm and leg Disturbance of skin sensation Spina bifida, unspecified hydrocephalus presence, unspecified spinal region (HCC) Essential hypertension Unspecified essential hypertension Mixed hyperlipidemia Paroxysmal SVT (supraventricular tachycardia) (HCC) Paroxysmal supraventricular tachycardia Fatty liver Other chronic nonalcoholic liver disease Neurogenic bowel DM (diabetes mellitus), secondary, uncontrolled, w/renal complications Secondary diabetes mellitus with renal manifestations, uncontrolled Neurogenic bladder Neurogenic bladder, NOS Amputation of left great toe (HCC) Low back pain, unspecified back pain laterality, unspecified chronicity, unspecified whether sciatica present Dysthymic disorder History of recurrent UTIs Personal history of urinary (tract) infection Obesity, Class III, BMI 40-49.9 (morbid obesity) ([facility]) Morbid obesity Post-op pain Other acute postoperative pain Type 2 diabetes mellitus with hyperglycemia, with long-term current use of insulin ([facility]) Paroxysmal SVT (supraventricular tachycardia) ([facility]) Paroxysmal supraventricular tachycardia Neurogenic bowel Encounter for care or replacement of suprapubic tube ([facility]) Attention to cystostomy Preoperative examination- Primary Preoperative examination, unspecified Colonic dysmotility Unspecified functional disorder of intestine Constipation due to outlet dysfunction Morbid obesity with BMI of 40.0-44.9, adult ([facility]) Morbid obesity Migraine without aura and without status migrainosus, not intractable Migraine without aura, without mention of intractable migraine without mention of status migrainosus History of Manley's palsy Personal history of other disorders of nervous system and sense organs Spina bifida, unspecified hydrocephalus presence, unspecified spinal region ([facility]) Essential hypertension Unspecified essential hypertension Mixed hyperlipidemia Paroxysmal SVT (supraventricular tachycardia) ([facility]) Paroxysmal supraventricular tachycardia Neurogenic bladder Neurogenic bladder, NOS Type 2 diabetes mellitus with hyperglycemia, with long-term current use of insulin ([facility]) Pre-op evaluation- Primary Preoperative examination, unspecified Spina bifida, unspecified hydrocephalus presence, unspecified spinal region ([facility]) Mixed hyperlipidemia Essential hypertension Unspecified essential hypertension Diabetes mellitus with peripheral vascular disease ([facility]) Type II or unspecified type diabetes mellitus with peripheral circulatory disorders, not stated as uncontrolled Neurogenic bowel Fatty liver Other chronic nonalcoholic liver disease Neurogenic bladder Neurogenic bladder, NOS Anxiety and depression Dysthymic disorder Bilateral leg edema Edema Colostomy in place ([facility]) Colostomy status Paroxysmal SVT (supraventricular tachycardia) ([facility]) Paroxysmal supraventricular tachycardia Tethered cord ([facility]) Other specified congenital anomaly of spinal cord Pre-op testing Preoperative examination, unspecified Suprapubic catheter ([facility])- Primary Other cystostomy status Neurogenic bladder Neurogenic bladder, NOS documented in this encounter [facility] note* Diagnosis Preoperative testing- Primary Preoperative examination, unspecified Neurogenic bladder Neurogenic bladder, NOS Spina bifida, unspecified hydrocephalus presence, unspecified spinal region ([facility]) Morbid obesity ([facility]) Morbid obesity Mixed hyperlipidemia Type 2 diabetes mellitus with proteinuria ([facility]) ([facility]) Paroxysmal SVT (supraventricular tachycardia) ([facility]) Paroxysmal supraventricular tachycardia Migraine without aura and without status migrainosus, not intractable Migraine without aura, without mention of intractable migraine without mention of status migrainosus Anxiety Anxiety state, unspecified Pre-operative examination- Primary Preoperative examination, unspecified Bladder stone Other calculus in bladder Migraine without aura and without status migrainosus, not intractable Migraine without aura, without mention of intractable migraine without mention of status migrainosus Numbness and tingling of left arm and leg Disturbance of skin sensation Spina bifida, unspecified hydrocephalus presence, unspecified spinal region (HCC) Essential hypertension Unspecified essential hypertension Mixed hyperlipidemia Paroxysmal SVT (supraventricular tachycardia) (HCC) Paroxysmal supraventricular tachycardia Fatty liver Other chronic nonalcoholic liver disease Neurogenic bowel DM (diabetes mellitus), secondary, uncontrolled, w/renal complications Secondary diabetes mellitus with renal manifestations, uncontrolled Neurogenic bladder Neurogenic bladder, NOS Amputation of left great toe ([facility]) Low back pain, unspecified back pain laterality, unspecified chronicity, unspecified whether sciatica present Dysthymic disorder History of recurrent UTIs Personal history of urinary (tract) infection Obesity, Class III, BMI 40-49.9 (morbid obesity) ([facility]) Morbid obesity Post-op pain Other acute postoperative pain Type 2 diabetes mellitus with hyperglycemia, with long-term current use of insulin ([facility]) Paroxysmal SVT (supraventricular tachycardia) ([facility]) Paroxysmal supraventricular tachycardia Neurogenic bowel Encounter for care or replacement of suprapubic tube ([facility]) Attention to cystostomy Preoperative examination- Primary Preoperative examination, unspecified Colonic dysmotility Unspecified functional disorder of intestine Constipation due to outlet dysfunction Morbid obesity with BMI of 40.0-44.9, adult ([facility]) Morbid obesity Migraine without aura and without status migrainosus, not intractable Migraine without aura, without mention of intractable migraine without mention of status migrainosus History of Manley's palsy Personal history of other disorders of nervous system and sense organs Spina bifida, unspecified hydrocephalus presence, unspecified spinal region (HCC) Essential hypertension Unspecified essential hypertension Mixed hyperlipidemia Paroxysmal SVT (supraventricular tachycardia) (HCC) Paroxysmal supraventricular tachycardia Neurogenic bladder Neurogenic bladder, NOS Type 2 diabetes mellitus with hyperglycemia, with long-term current use of insulin ([facility]) Pre-op evaluation- Primary Preoperative examination, unspecified Spina bifida, unspecified hydrocephalus presence, unspecified spinal region (HCC) Mixed hyperlipidemia Essential hypertension Unspecified essential hypertension Diabetes mellitus with peripheral vascular disease (HCC) Type II or unspecified type diabetes mellitus with peripheral circulatory disorders, not stated as uncontrolled Neurogenic bowel Fatty liver Other chronic nonalcoholic liver disease Neurogenic bladder Neurogenic bladder, NOS Anxiety and depression Dysthymic disorder Bilateral leg edema Edema Colostomy in place (HCC) Colostomy status Paroxysmal SVT (supraventricular tachycardia) (HCC) Paroxysmal supraventricular tachycardia 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 Pre-op testing Preoperative examination, unspecified Intractable chronic migraine with aura and without status migrainosus- Primary Neuropathy Mononeuritis of unspecified site Paresthesias Disturbance of skin sensation Spina bifida, unspecified hydrocephalus presence, unspecified spinal region (HCC) Cervical vertebral fusion Other unspecified back disorder documented in this encounter [facility] note* Diagnosis Preoperative testing- Primary Preoperative examination, unspecified Neurogenic bladder Neurogenic bladder, NOS Spina bifida, unspecified hydrocephalus presence, unspecified spinal region (HCC) Morbid obesity (HCC) Morbid obesity Mixed hyperlipidemia 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) ([facility]) Paroxysmal SVT (supraventricular tachycardia) ([facility]) Paroxysmal supraventricular tachycardia Migraine without aura and without status migrainosus, not intractable Migraine without aura, without mention of intractable migraine without mention of status migrainosus Anxiety Anxiety state, unspecified Pre-operative examination- Primary Preoperative examination, unspecified Bladder stone Other calculus in bladder Migraine without aura and without status migrainosus, not intractable Migraine without aura, without mention of intractable migraine without mention of status migrainosus Numbness and tingling of left arm and leg Disturbance of skin sensation Spina bifida, unspecified hydrocephalus presence, unspecified spinal region (HCC) Essential hypertension Unspecified essential hypertension Mixed hyperlipidemia Paroxysmal SVT (supraventricular tachycardia) (HCC) Paroxysmal supraventricular tachycardia Fatty liver Other chronic nonalcoholic liver disease Neurogenic bowel DM (diabetes mellitus), secondary, uncontrolled, w/renal complications Secondary diabetes mellitus with renal manifestations, uncontrolled Neurogenic bladder Neurogenic bladder, NOS Amputation of left great toe ([facility]) Low back pain, unspecified back pain laterality, unspecified chronicity, unspecified whether sciatica present Dysthymic disorder History of recurrent UTIs Personal history of urinary (tract) infection Obesity, Class III, BMI 40-49.9 (morbid obesity) ([facility]) Morbid obesity Post-op pain Other acute postoperative pain Type 2 diabetes mellitus with hyperglycemia, with long-term current use of insulin (HCC) Paroxysmal SVT (supraventricular tachycardia) (HCC) Paroxysmal supraventricular tachycardia Neurogenic bowel Encounter for care or replacement of suprapubic tube ([facility]) Attention to cystostomy Preoperative examination- Primary Preoperative examination, unspecified Colonic dysmotility Unspecified functional disorder of intestine Constipation due to outlet dysfunction Morbid obesity with BMI of 40.0-44.9, adult (HCC) Morbid obesity Migraine without aura and without status migrainosus, not intractable Migraine without aura, without mention of intractable migraine without mention of status migrainosus History of Manley's palsy Personal history of other disorders of nervous system and sense organs Spina bifida, unspecified hydrocephalus presence, unspecified spinal region (HCC) Essential hypertension Unspecified essential hypertension Mixed hyperlipidemia Paroxysmal SVT (supraventricular tachycardia) (HCC) Paroxysmal supraventricular tachycardia Neurogenic bladder Neurogenic bladder, NOS Type 2 diabetes mellitus with hyperglycemia, with long-term current use of insulin ([facility]) Pre-op evaluation- Primary Preoperative examination, unspecified Spina bifida, unspecified hydrocephalus presence, unspecified spinal region (HCC) Mixed hyperlipidemia Essential hypertension Unspecified essential hypertension Diabetes mellitus with peripheral vascular disease (HCC) Type II or unspecified type diabetes mellitus with peripheral circulatory disorders, not stated as uncontrolled Neurogenic bowel Fatty liver Other chronic nonalcoholic liver disease Neurogenic bladder Neurogenic bladder, NOS Anxiety and depression Dysthymic disorder Bilateral leg edema Edema Colostomy in place (HCC) Colostomy status Paroxysmal SVT (supraventricular tachycardia) (HCC) Paroxysmal supraventricular tachycardia 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 Pre-op testing Preoperative examination, unspecified Migraine without aura and without status migrainosus, not intractable- Primary Migraine without aura, without mention of intractable migraine without mention of status migrainosus [facility] Diagnosis Preoperative testing- Primary Preoperative examination, unspecified Neurogenic bladder Neurogenic bladder, NOS Spina bifida, unspecified hydrocephalus presence, unspecified spinal region (HCC) Morbid obesity (HCC) Morbid obesity Mixed hyperlipidemia 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) Paroxysmal SVT (supraventricular tachycardia) (HCC) Paroxysmal supraventricular tachycardia Migraine without aura and without status migrainosus, not intractable Migraine without aura, without mention of intractable migraine without mention of status migrainosus Anxiety Anxiety state, unspecified Pre-operative examination- Primary Preoperative examination, unspecified Bladder stone Other calculus in bladder Migraine without aura and without status migrainosus, not intractable Migraine without aura, without mention of intractable migraine without mention of status migrainosus Numbness and tingling of left arm and leg Disturbance of skin sensation Spina bifida, unspecified hydrocephalus presence, unspecified spinal region ([facility]) Essential hypertension Unspecified essential hypertension Mixed hyperlipidemia Paroxysmal SVT (supraventricular tachycardia) (HCC) Paroxysmal supraventricular tachycardia Fatty liver Other chronic nonalcoholic liver disease Neurogenic bowel DM (diabetes mellitus), secondary, uncontrolled, w/renal complications Secondary diabetes mellitus with renal manifestations, uncontrolled Neurogenic bladder Neurogenic bladder, NOS Amputation of left great toe ([facility]) Low back pain, unspecified back pain laterality, unspecified chronicity, unspecified whether sciatica present Dysthymic disorder History of recurrent UTIs Personal history of urinary (tract) infection Obesity, Class III, BMI 40-49.9 (morbid obesity) ([facility]) Morbid obesity Post-op pain Other acute postoperative pain Type 2 diabetes mellitus with hyperglycemia, with long-term current use of insulin ([facility]) Paroxysmal SVT (supraventricular tachycardia) ([facility]) Paroxysmal supraventricular tachycardia Neurogenic bowel Encounter for care or replacement of suprapubic tube ([facility]) Attention to cystostomy Preoperative examination- Primary Preoperative examination, unspecified Colonic dysmotility Unspecified functional disorder of intestine Constipation due to outlet dysfunction Morbid obesity with BMI of 40.0-44.9, adult ([facility]) Morbid obesity Migraine without aura and without status migrainosus, not intractable Migraine without aura, without mention of intractable migraine without mention of status migrainosus History of Manley's palsy Personal history of other disorders of nervous system and sense organs Spina bifida, unspecified hydrocephalus presence, unspecified spinal region ([facility]) Essential hypertension Unspecified essential hypertension Mixed hyperlipidemia Paroxysmal SVT (supraventricular tachycardia) ([facility]) Paroxysmal supraventricular tachycardia Neurogenic bladder Neurogenic bladder, NOS Type 2 diabetes mellitus with hyperglycemia, with long-term current use of insulin ([facility]) Pre-op evaluation- Primary Preoperative examination, unspecified Spina bifida, unspecified hydrocephalus presence, unspecified spinal region ([facility]) Mixed hyperlipidemia Essential hypertension Unspecified essential hypertension Diabetes mellitus with peripheral vascular disease ([facility]) Type II or unspecified type diabetes mellitus with peripheral circulatory disorders, not stated as uncontrolled Neurogenic bowel Fatty liver Other chronic nonalcoholic liver disease Neurogenic bladder Neurogenic bladder, NOS Anxiety and depression Dysthymic disorder Bilateral leg edema Edema Colostomy in place ([facility]) Colostomy status Paroxysmal SVT (supraventricular tachycardia) ([facility]) Paroxysmal supraventricular tachycardia Tethered cord ([facility]) Other specified congenital anomaly of spinal cord Pre-op testing Preoperative examination, unspecified Neurogenic bladder- Primary Neurogenic bladder, NOS [facility] Onset Date Resolution Status Admit Date Leukocytosis acute August 11, 2024 10:51pm [facility] Work Phone: Evaluation note* Diagnosis Preoperative testing- Primary Preoperative examination, unspecified Neurogenic bladder Neurogenic bladder, NOS Spina bifida, unspecified hydrocephalus presence, unspecified spinal region (HCC) Morbid obesity (HCC) Morbid obesity Mixed hyperlipidemia 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) Paroxysmal SVT (supraventricular tachycardia) (HCC) Paroxysmal supraventricular tachycardia Migraine without aura and without status migrainosus, not intractable Migraine without aura, without mention of intractable migraine without mention of status migrainosus Anxiety Anxiety state, unspecified Pre-operative examination- Primary Preoperative examination, unspecified Bladder stone Other calculus in bladder Migraine without aura and without status migrainosus, not intractable Migraine without aura, without mention of intractable migraine without mention of status migrainosus Numbness and tingling of left arm and leg Disturbance of skin sensation Spina bifida, unspecified hydrocephalus presence, unspecified spinal region (HCC) Essential hypertension Unspecified essential hypertension Mixed hyperlipidemia Paroxysmal SVT (supraventricular tachycardia) (HCC) Paroxysmal supraventricular tachycardia Fatty liver Other chronic nonalcoholic liver disease Neurogenic bowel DM (diabetes mellitus), secondary, uncontrolled, w/renal complications Secondary diabetes mellitus with renal manifestations, uncontrolled Neurogenic bladder Neurogenic bladder, NOS Amputation of left great toe Low back pain, unspecified back pain laterality, unspecified chronicity, unspecified whether sciatica present Dysthymic disorder History of recurrent UTIs Personal history of urinary (tract) infection Obesity, Class III, BMI 40-49.9 (morbid obesity) Morbid obesity Post-op pain Other acute postoperative pain Type 2 diabetes mellitus with hyperglycemia, with long-term current use of insulin (HCC) Paroxysmal SVT (supraventricular tachycardia) (HCC) Paroxysmal supraventricular tachycardia Neurogenic bowel Encounter for care or replacement of suprapubic tube (HCC) Attention to cystostomy Preoperative examination- Primary Preoperative examination, unspecified Colonic dysmotility Unspecified functional disorder of intestine Constipation due to outlet dysfunction Morbid obesity with BMI of 40.0-44.9, adult (HCC) Morbid obesity Migraine without aura and without status migrainosus, not intractable Migraine without aura, without mention of intractable migraine without mention of status migrainosus History of Manley's palsy Personal history of other disorders of nervous system and sense organs Spina bifida, unspecified hydrocephalus presence, unspecified spinal region (HCC) Essential hypertension Unspecified essential hypertension Mixed hyperlipidemia Paroxysmal SVT (supraventricular tachycardia) (HCC) Paroxysmal supraventricular tachycardia Neurogenic bladder Neurogenic bladder, NOS Type 2 diabetes mellitus with hyperglycemia, with long-term current use of insulin (HCC) Pre-op evaluation- Primary Preoperative examination, unspecified Spina bifida, unspecified hydrocephalus presence, unspecified spinal region (HCC) Mixed hyperlipidemia Essential hypertension Unspecified essential hypertension Diabetes mellitus with peripheral vascular disease (HCC) Type II or unspecified type diabetes mellitus with peripheral circulatory disorders, not stated as uncontrolled Neurogenic bowel Fatty liver Other chronic nonalcoholic liver disease Neurogenic bladder Neurogenic bladder, NOS Anxiety and depression Dysthymic disorder Bilateral leg edema Edema Colostomy in place (HCC) Colostomy status Paroxysmal SVT (supraventricular tachycardia) (HCC) Paroxysmal supraventricular tachycardia 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 Pre-op testing Preoperative examination, unspecified Neurogenic bladder- Primary Neurogenic bladder, NOS documented in this encounter [facility]* Diagnosis Preoperative testing- Primary Preoperative examination, unspecified Neurogenic bladder Neurogenic bladder, NOS Spina bifida, unspecified hydrocephalus presence, unspecified spinal region (HCC) Morbid obesity (HCC) Morbid obesity Mixed hyperlipidemia 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) Paroxysmal SVT (supraventricular tachycardia) (HCC) Paroxysmal supraventricular tachycardia Migraine without aura and without status migrainosus, not intractable Migraine without aura, without mention of intractable migraine without mention of status migrainosus Anxiety Anxiety state, unspecified Pre-operative examination- Primary Preoperative examination, unspecified Bladder stone Other calculus in bladder Migraine without aura and without status migrainosus, not intractable Migraine without aura, without mention of intractable migraine without mention of status migrainosus Numbness and tingling of left arm and leg Disturbance of skin sensation Spina bifida, unspecified hydrocephalus presence, unspecified spinal region (HCC) Essential hypertension Unspecified essential hypertension Mixed hyperlipidemia Paroxysmal SVT (supraventricular tachycardia) (HCC) Paroxysmal supraventricular tachycardia Fatty liver Other chronic nonalcoholic liver disease Neurogenic bowel DM (diabetes mellitus), secondary, uncontrolled, w/renal complications Secondary diabetes mellitus with renal manifestations, uncontrolled Neurogenic bladder Neurogenic bladder, NOS Amputation of left great toe Low back pain, unspecified back pain laterality, unspecified chronicity, unspecified whether sciatica present Dysthymic disorder History of recurrent UTIs Personal history of urinary (tract) infection Obesity, Class III, BMI 40-49.9 (morbid obesity) Morbid obesity Post-op pain Other acute postoperative pain Type 2 diabetes mellitus with hyperglycemia, with long-term current use of insulin (HCC) Paroxysmal SVT (supraventricular tachycardia) (HCC) Paroxysmal supraventricular tachycardia Neurogenic bowel Encounter for care or replacement of suprapubic tube (HCC) Attention to cystostomy Preoperative examination- Primary Preoperative examination, unspecified Colonic dysmotility Unspecified functional disorder of intestine Constipation due to outlet dysfunction Morbid obesity with BMI of 40.0-44.9, adult (HCC) Morbid obesity Migraine without aura and without status migrainosus, not intractable Migraine without aura, without mention of intractable migraine without mention of status migrainosus History of Manley's palsy Personal history of other disorders of nervous system and sense organs Spina bifida, unspecified hydrocephalus presence, unspecified spinal region (HCC) Essential hypertension Unspecified essential hypertension Mixed hyperlipidemia Paroxysmal SVT (supraventricular tachycardia) (HCC) Paroxysmal supraventricular tachycardia Neurogenic bladder Neurogenic bladder, NOS Type 2 diabetes mellitus with hyperglycemia, with long-term current use of insulin (HCC) Pre-op evaluation- Primary Preoperative examination, unspecified Spina bifida, unspecified hydrocephalus presence, unspecified spinal region (HCC) Mixed hyperlipidemia Essential hypertension Unspecified essential hypertension Diabetes mellitus with peripheral vascular disease (HCC) Type II or unspecified type diabetes mellitus with peripheral circulatory disorders, not stated as uncontrolled Neurogenic bowel Fatty liver Other chronic nonalcoholic liver disease Neurogenic bladder Neurogenic bladder, NOS Anxiety and depression Dysthymic disorder Bilateral leg edema Edema Colostomy in place (HCC) Colostomy status Paroxysmal SVT (supraventricular tachycardia) (HCC) Paroxysmal supraventricular tachycardia 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 Pre-op testing Preoperative examination, unspecified Neurogenic bladder- Primary Neurogenic bladder, NOS [facility] N[facility] No data available for this section [facility] Hospital Discharge instructions No data available for this section [facility] Additional Instructions Follow-up with Dr. Wing on at 9:15 AM in the office. Take all the antibiotics.[facility] Work Phone: Hospital Discharge instructions Additional Instructions Plenty of fluids and rest. Cranberry juice. Motrin and Tylenol for pain. The antibiotic Bactrim 1 pill twice a day. A urine culture was sent. Those results should be back in 48 hours. If those results do not match the antibiotic we have started you on we will notify you and change antibiotic if needed. Pyridium for bladder spasm.[facility] Work Phone: Hospital Discharge instructions Additional Instructions Your CAT scan labs look good. No specific cause for your pain. Motrin and Tylenol for pain. Follow-up if not improving.[facility] Work Phone: Progress note No data available for this section [facility] Reason for referral (narrative)* Diagnostic Procedure Only (Routine) - Closed Specialty Diagnoses / Procedures Referred By Ren aguilera Referred To Contact XR IMAGING Diagnoses Neurogenic bowel Procedures XR COLONIC TRANSIT IMAGE 3 X-RAY ABD SINGLE AP VIEW Sandra López DO [address] [place] [address] Xr Imaging Referral ID Status Reason Start Date Expiration Date V isits Requested Visits Authorized [id number] Closed Auto-Generate d Referral 08/11/2021 09/10/2022 1 1 [facility] for referral (narrative)* Outpatient Procedure (Routine) - Pending Review Specialty Diagnoses / Procedures Referred By Ren aguilera Referred To Contact [facility] Diagnoses Neurogenic dysfunction of the urinary bladder Procedures SUPRAPUBIC TUBE CHANGE ASPIRATION BLADDER INSERT SUPRAPUBIC CATHETER Cory Box PA-C [address] [place] [address] [facility] [address] [place] [address] Referral ID Status Reason Start Date Expiration Date Visits Requested Visits Authorized [id number] Pending Review Auto-Generat ed Referral 08/31/2021 08/31/2022 12 12 [facility] for referral (narrative)* Diagnostic Procedure Only (Routine) - Pending Review Specialty Diagnoses / Procedures Referred By Contac t Referred To Contact [facility] Diagnoses Encounter for screening mammogram for breast cancer Procedures ANGIE SCREENING SCREENING MAMMOGRAPHY BI 2-VIEW BREAST INC CAD Will Brannon MD [address] [place] [address] [facility] [address] [place] [address] Referral ID Status Reason Start Date Expiration Date Visits Requested Visits Authorized [id number] Pending Review Auto-Generat ed Referral 12/15/2021 01/14/2023 1 1 [facility] for referral (narrative)* Diagnostic Procedure Only (Routine) - Closed Specialty Diagnoses / Procedures Referred By Contac t Referred To Contact [facility] IM[facility] Diagnoses Encounter for screening mammogram for breast cancer Procedures ANGIE SCREENING SCREENING MAMMOGRAPHY BI 2-VIEW BREAST INC CAD Will Brannon MD [address] [place] [address] [facility] [address] [place] [address] Referral ID Status Reason Start Date Expiration Date V isits Requested Visits Authorized [id number] Closed Auto-Generate d Referral 12/15/2021 01/14/2023 1 1 [facility] for referral (narrative)* Diagnostic Procedure Only (Routine) - Authorized Specialty Diagnoses / Procedures Referred By Contac t Referred To Contact US IMAGING Diagnoses Thyroid cyst Procedures US THYROID/PARATHYROID US SOFT TISSUE HEAD & NECK REAL TIME IMGE Netta Lock PA-C [address] [place] [address] Us Imaging Referral ID Status Reason Start Date Expiration Date Visits Requested Visits Authorized [id number] Authorized Auto-Generat ed Referral 02/09/2022 03/11/2023 1 1 [facility] for referral (narrative)* Diagnostic Procedure Only (Routine) - Closed Specialty Diagnoses / Procedures Referred By Contac t Referred To Contact US IMAGING Diagnoses Thyroid cyst Procedures US THYROID/PARATHYROID US SOFT TISSUE HEAD & NECK REAL TIME IMGE DOCM Netta Higgins PA-C [address] [place] [address] Us Imaging Referral ID Status Reason Start Date Expiration Date V isits Requested Visits Authorized [id number] Closed Auto-Generate d Referral 02/09/2022 03/11/2023 1 1 [facility] for referral (narrative)* Outpatient Procedure (Routine) - Pending Review Specialty Diagnoses / Procedures Referred By Contac t Referred To Contact [facility] Diagnoses Neurogenic bladder Procedures SUPRAPUBIC TUBE CHANGE ASPIRATION BLADDER INSERT SUPRAPUBIC CATHETER Cory Box PA-C [address] [place] [address] [facility] [address] [place] [address] Referral ID Status Reason Start Date Expiration Date Visits Requested Visits Authorized [id number] Pending Review Auto-Generat ed Referral 09/06/2022 09/07/2023 99 1 [facility] for referral (narrative)* Diagnostic Procedure Only (Routine) - Pending Review Specialty Diagnoses / Procedures Referred By Contac t Referred To Contact [facility] Diagnoses Encounter for screening mammogram for breast cancer Procedures ANGIE SCREENING SCREENING MAMMOGRAPHY BI 2-VIEW BREAST INC CAD Will Brannon MD [address] [place] [address] Br Imaging [address] [place] [address] Referral ID Status Reason Start Date Expiration Date Visits Requested Visits Authorized [id number] Pending Review Auto-Generat ed Referral 02/15/2023 03/16/2024 1 1 [facility] for referral (narrative)* Outpatient Procedure (Routine) - Pending Review Specialty Diagnoses / Procedures [facility] To [facility] Diagnoses Paroxysmal SVT (supraventricular tachycardia) (HCC) Procedures ECG COMPLETE ECG ROUTINE ECG W/LEAST 12 LDS W/I&R Devin George APRN.CNP [address] [place] [address] [address] Referral ID Status Reason Start Date Expiration Date Visits Requested Visits Authorized [id number] Pending Review Auto-Generat ed Referral 09/28/2023 09/27/2024 1 1 [facility] for referral (narrative)* Outpatient Procedure (Routine) - Pending Review Specialty Diagnoses / Procedures [facility] Referred To Contact [facility] Diagnoses Neurogenic bladder Procedures SUPRAPUBIC TUBE CHANGE ASPIRATION BLADDER INSERT SUPRAPUBIC CATHETER Cory Box PA-C [address] [place] [address] [address] Referral ID Status Reason Start Date Expiration Date Visits Requested Visits Authorized [id number] Pending Review Auto-Generat ed Referral 09/05/2023 09/04/2024 99 1 [facility] for referral (narrative)* Outpatient Procedure (Routine) - Authorized Specialty Diagnoses / Procedures [facility] Referred To Contact [facility] Diagnoses Oropharyngeal dysphagia Procedures EGD DIAGNOSTIC ESOPHAGOGASTRODUODENOSC OPY TRANSORAL DIAGNOSTIC Xavier Josue MD [address] [place] [address] [address] [place] [address] Referral ID Status Reason Start Date Expiration Date Visits Requested Visits Authorized [id number] Authorized Auto-Generat ed Referral 03/04/2024 03/04/2025 1 1 [facility] for referral (narrative)* Outpatient Procedure (Routine) - Closed Specialty Diagnoses / Procedures [facility] To [facility] Diagnoses Oropharyngeal dysphagia Procedures EGD DIAGNOSTIC ESOPHAGOGASTRODUODENOSC OPY TRANSORAL DIAGNOSTIC Xavier Josue MD [address] [place] [address] [facility] [address] [place] [address] Referral ID Status Reason Start Date Expiration Date V isits Requested Visits Authorized [id number] Closed Auto-Generate d Referral 03/04/2024 03/04/2025 1 1 [facility] for referral (narrative)* Diagnostic Procedure Only (Routine) - Authorized Specialty Diagnoses / Procedures Referred By Ren t Referred To Contact [facility] Diagnoses Encounter for screening mammogram for breast cancer Procedures ANGIE SCREENING SCREENING MAMMOGRAPHY BI 2-[place] [address] [place] [address] [facility] [address] [place] [phone] Referral ID Status Reason Start Date Expiration Date Visits Requested Visits Authorized [id number] Authorized Auto-Generat ed Referral 05/10/2025 1 1 * Diagnostic Procedure Only (Routine) - Authorized Specialty Diagnoses / Procedures [facility] Referred To Contact [facility] Diagnoses Thyroid cyst Procedures US THYROID/PARATHYROID US SOFT TISSUE HEAD & NECK REAL TIME IMGE Will Maldonado MD [address] [place] [address] [place] [address] Referral ID Status Reason Start Date Expiration Date Visits Requested Visits Authorized [id number] Authorized Auto-Generat ed Referral 05/10/2025 1 1 [facility] for referral (narrative)No reason for referral information [facility] Work Phone: Reason for visit Narrative* Diagnostic Procedure Only (Routine) - Closed Specialty Diagnoses / Procedures Referred By Contac t Referred To Contact XR IMAGING Diagnoses Neurogenic bowel Procedures XR COLONIC TRANSIT IMAGE 3 X-RAY ABD SINGLE AP VIEW Sandra López DO [address] [place] [address] Xr Imaging Referral ID Status Reason Start Date Expiration Date V isits Requested Visits Authorized [id number] Closed Auto-Generate d Referral 08/11/2021 09/10/2022 1 1 [facility] for visit Narrative* Outpatient Procedure (Routine) - Closed Specialty Diagnoses / Procedures [facility] To [facility] Diagnoses Oropharyngeal dysphagia Procedures EGD DIAGNOSTIC ESOPHAGOGASTRODUODENOSC OPY TRANSORAL DIAGNOSTIC Xavier Josue MD [address] [facility] [place] [address] [facility] [address] [place] [address] Referral ID Status Reason Start Date Expiration Date V isits Requested Visits Authorized [id number] Closed Auto-Generate d Referral 03/04/2024 03/04/2025 1 1 [facility] for visit Narrative* Diagnostic Procedure Only (Routine) - Closed Specialty Diagnoses / Procedures [facility] Referred To Contact [facility] Diagnoses Encounter for screening mammogram for breast cancer Procedures ANGIE SCREENING SCREENING MAMMOGRAPHY BI 2-VIEW BREAST INC CAD Will Brannon MD [address] [place] [address] [facility] [address] [place] [address] Referral ID Status Reason Start Date Expiration Date V isits Requested Visits Authorized [id number] Closed Auto-Generate d Referral 04/10/2024 05/10/2025 1 1 [facility] note* Merlin, HIM Layla L: PERFORM Event Display: Patient Summary Documents Authored Date: [id number] [facility] summary note* CORRY Boyer: PERFORM Event Display: Patient Summary Documents Authored Date: [id number] [facility] summary note* CORRY Boyer: PERFORM Event Display: Patient Summary Documents Authored Date: [id number] [facility] Suczwqk note* Annamaria Valadez: PERFORM Event Display: Patient Summary Documents Authored Date: [id number] 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 Advance Directive(s) 10/13/2020 12:28 PM Advance Directive(s) 11/07/2018 6:15 AM Advance Directive(s) 12/11/2017 12:01 PM Advance Directive(s) 01/12/2016 11:48 AM Advance Directive(s) 01/05/2016 10:56 AM Documents on File Type Date Recorded 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 Advance Directive(s) 10/13/2020 12:28 PM Advance Directive(s) 11/07/2018 6:15 AM Advance Directive(s) 12/11/2017 12:01 PM Advance Directive(s) 01/12/2016 11:48 AM Advance Directive(s) 01/05/2016 10:56 AM Advance Directive Response Recorded Date/ Time Advance Directives No January 04, 10:06am Living Will No September 17, 2021 3:21pm Power of Cabin Cleaner No September 17 3:21pm Documents on File Type Date Recorded 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 Advance Directive(s) 09/10/2021 10:48 AM Advance Directive(s) 10/13/2020 12:28 PM Advance Directive(s) 11/07/2018 6:15 AM Advance Directive(s) 12/11/2017 12:01 PM Advance Directive(s) 01/12/2016 11:48 AM Advance Directive(s) 01/05/2016 10:56 AM Documents on File Type Date Recorded 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 Advance Directive(s) 09/10/2021 10:48 AM Advance Directive(s) 10/13/2020 12:28 PM Advance Directive(s) 11/07/2018 6:15 AM Advance Directive(s) 12/11/2017 12:01 PM Advance Directive(s) 01/12/2016 11:48 AM Advance Directive(s) 01/05/2016 10:56 AM Advance Directive Response Recorded Date/ Time Advance Directives No January 04, 018 10:06am Living Will No November 04, 2021 1 1:50pm Power of Cabin Cleaner No November 04, 2021 11:50pm Advance Directive Response Recorded Date/ Time Advance Directives No January 04, 2 018 10:06am Living Will No November 14, 2021 11:25pm Power of Cabin Cleaner No November 14 11:25pm Advance Directive Response Recorded Date/ Time Advance Directives No January 04, 2 018 10:06am Living Will No November 20, 2021 10:53pm Power of Cabin Cleaner No November 20 10:53pm Advance Directive Response Recorded Date/ Time Advance Directives No January 04, 2 018 10:06am Living Will No November 26, 2021 2 :03pm Power of Cabin Cleaner No November 26, 2021 2:03pm Advance Directive Response Recorded Date/ Time Advance Directives No January 10, 2022 12:40pm Living Will No July 13, 2 023 12:24am Power of Cabin Cleaner No July 13, 2022 12:24am Advance Directive Response Recorded Date/ Time Advance Directives No January 10, 2022 12:40pm Living Will No July 13, 2 023 4:51am Power of Cabin Cleaner No July 13, 2022 4:51am Advance Directive Response Recorded Date/ Time Advance Directives No January 10, 2022 1:40pm Living Will No August 16, 2022 11:48am Power of Cabin Cleaner No August 16 11:48am Advance Directive Response Recorded Date/ Time Advance Directives No January 10, 2022 1:40pm Living Will No October 06, 2022 1 1:11pm Power of Cabin Cleaner No October 06, 2022 11:11pm Advance Directive Response Recorded Date/ Time Advance Directives No January 10, 2022 1:40pm Living Will No December 12, 2022 6:52pm Power of Cabin Cleaner No December 12 6:52pm Advance Directive Response Recorded Date/ Time Advance Directives No January 10, 2022 1:40pm Living Will No February 02, 2 023 7:31pm Power of Cabin Cleaner No February 02, 2023 7:31pm Advance Directive Response Recorded Date/ Time Advance Directives No January 10, 2022 12:40pm Living Will No February 02, 2 023 6:31pm Power of Cabin Cleaner No February 02, 2023 6:31pm Advance Directive Response Recorded Date/ Time Advance Directives No January 10, 2022 12:40pm Living Will No April 20, 023 11:35pm Power of Cabin Cleaner No April 20, 2023 11:35pm Advance Directive Response Recorded Date/ Time Advance Directives No January 10, 2022 1:40pm Living Will No August 13, 2023 8:21pm Power of Cabin Cleaner No August 12 8:21pm Advance Directive Response Recorded Date/ Time Advance Directives No January 10, 2022 1:40pm Living Will No October 07, 2023 1 :16pm Power of Cabin Cleaner No October 07, 2023 1:16pm Advance Directive Response Recorded Date/ Time Living Will No June 09 1:31am Power of Cabin Cleaner No June 09, 2024 1:31am Living Will No July 31, 2024 7:02pm Power of Cabin Cleaner No July 31 7:02pm Living Will No August 11, 2024 9:42pm Power of Cabin Cleaner No August 11 9:42pm Living Will No June 12 11:49pm Power of Cabin Cleaner No June 12, 2024 11:49pm Living Will No July 11, 025 7:43pm Power of Cabin Cleaner No July 11, 2024 7:43pm Advance Directives No January 10, 2022 1:40pm Advance Directive Response Recorded Date/ Time Living Will No June 09 1:31am Do you have a Healthcare Power of Cabin Cleaner? No June 09, 2024 1:31am Living Will No July 31, 2024 7:02pm Do you have a Healthcare Power of Cabin Cleaner? No July 31, 2024 7:02pm Living Will No August 11, 2024 11:02pm Do you have a Healthcare Power of Cabin Cleaner? No August 11, 2024 11:02pm Living Will No June 12 11:49pm Do you have a Healthcare Power of Cabin Cleaner? No June 12, 2024 11:49pm Living Will No July 11, 025 7:43pm Do you have a Healthcare Power of Cabin Cleaner? No July 11, 2024 7:43pm Advance Directives No January 10, 2022 1:40pm Advance Directive Response Recorded Date/ Time Living Will No July 31, 2024 7:02pm Do you have a Healthcare Power of Cabin Cleaner? No July 31, 2024 7:02pm Living Will No August 11, 2024 11:02pm Do you have a Healthcare Power of Cabin Cleaner? No August 11, 2024 11:02pm Living Will No June 12 11:49pm Do you have a Healthcare Power of Cabin Cleaner? No June 12, 2024 11:49pm Living Will No July 11, 2 025 7:43pm Do you have a Healthcare Power of Cabin Cleaner? No July 11, 2024 7:43pm Advance Directives No January 10, 2022 1:40pm Reason for Referral Specialty Diagnoses / Procedures Referred By Ren aguilera 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 CONSULT TO HEMATOLOGY/ONCOLOGY OFFICE/OUTPATIENT [facility] 60 MINUTES Devin George, APPLICATION SUPPORT DEVELOPER.BURIAL AGENT [address] [place] [address] Referral ID Status Reason Start Date Expiration Date Visits Requested Visits Authorized [id number] Authorized PCP Requested Referral 12/04/2023 12/03/2024 1 1 Specialty Diagnoses / Procedures Referred By Ren aguilera Referred To Contact Diagnoses 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) Diabetes mellitus with peripheral vascular disease (HCC) Procedures CONSULT TO DIABETES EDUCATION DSME/MNT MEDICAL NUTRITION ASSMT&IVNTJ INDIV EACH 15 AL MEDICAL NUTRITION ASSMT&IVNTJ INDIV EACH 15 AL MEDICAL NUTRITION ASSMT&IVNTJ INDIV EACH 15 AL MEDICAL NUTRITION ASSMT&IVNTJ INDIV EACH 15 [place] Devin George APRN.[place] [id number] Referral ID Status Reason Start Date Expiration Date Visits Requested Visits Authorized [id number] Authorized PCP Requested Referral 10/09/2023 10/08/2024 1 1 Specialty Diagnoses / Procedures Referred By Contac t Referred To Contact Endocrinology Diagnoses 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) Diabetes mellitus with peripheral vascular disease (HCC) Procedures CONSULT TO ENDOCRINOLOGY OFFICE/OUTPATIENT [facility] 60 MINUTES Devin George APRN.BURIAL AGENT [address] [id number] Sandrita Johnson MD [address] [place] [id number] Referral ID Status Reason Start Date Expiration Date Visits Requested Visits Authorized [id number] Authorized PCP Requested Referral 10/09/2023 10/08/2024 1 1 Specialty Diagnoses / Procedures Referred By Contac t Referred To Contact Diagnoses Tethered cord (HCC) Pre-op testing Procedures REFER TO PACC - PRE ANESTHESIA CONSULTATION CLINIC OFFICE/OUTPATIENT [facility] 60 MINUTES Hilda Nick PA-C [address] [place] [address] Referral ID Status Reason Start Date Expiration Date Visits Requested Visits Authorized [id number] Authorized PCP Requested Referral 09/26/2023 09/25/2024 1 1 Specialty Diagnoses / Procedures Referred By Contac t Referred To Contact Neurosurgery Diagnoses Lipomeningocele (HCC) Procedures CONSULT TO NEUROSURGERY OFFICE/OUTPATIENT [facility] 60 MINUTES Stephan Nicholson MD [address] [place] [address] Daiana Sweeney MD [address] [place] [address] Referral ID Status Reason Start Date Expiration Date Visits Requested Visits Authorized [id number] Authorized PCP Requested Referral 07/18/2023 07/17/2024 1 1 Specialty Diagnoses / Procedures Referred By Contac t Referred To Contact MR IMAGING Diagnoses Chronic bilateral low back pain without sciatica Procedures MRI LUMBAR SPINE WO IVCON MRI SPINAL CANAL LUMBAR W/O CONTRAST MATERIAL Stephan Nicholson MD [address] [place] [address] Mr Imaging [place] [address] Referral ID Status Reason Start Date Expiration Date Visits Requested Visits Authorized [id number] Authorized Auto-Generat ed Referral 07/18/2023 08/16/2024 1 1 Specialty Diagnoses / Procedures Referred By Contac t Referred To Contact MR IMAGING Diagnoses Radiculopathy of lumbar region Procedures MRI THORACIC SPINE WO IVCON MRI SPINAL CANAL THORACIC W/O CONTRAST Stephan Braden MD [address] [place] [address] Mr Imaging [place] [address] Referral ID Status Reason Start Date Expiration Date Visits Requested Visits Authorized [id number] Authorized Auto-Generat ed Referral 07/18/2023 08/16/2024 1 1 Specialty Diagnoses / Procedures Referred By Contac t Referred To Contact MR IMAGING Diagnoses Spinal stenosis of cervical region Procedures MRI CERVICAL SPINE WO IVCON MRI SPINAL CANAL CERVICAL W/O CONTRAST Stephan Braden MD [address] [place] [address] Mr Imaging [place] [address] Referral ID Status Reason Start Date Expiration Date Visits Requested Visits Authorized [id number] Authorized Auto-Generat ed Referral 07/18/2023 08/16/2024 1 1 Specialty Diagnoses / Procedures Referred By Contac t Referred To Contact Diagnoses Abnormal uterine bleeding (AUB) Encounter for screening for malignant neoplasm of cervix Class 2 obesity with body mass index (BMI) of 35.0 to 35.9 in adult, unspecified obesity type, unspecified whether serious comorbidity present 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 [address] [place] [address] Referral ID Status Reason Start Date Expiration Date Visits Requested Visits Authorized [id number] Pending Review Auto-Generat ed Referral 05/02/2023 05/31/2024 1 1 Specialty Diagnoses / Procedures Referred By Contac t Referred To Contact US IMAGING Diagnoses Abnormal uterine bleeding (AUB) Procedures US FEMALE PELVIS TRANSVAG US TRANSVAGINAL Joni Monk MD [address] [place] [address] [place] [address] Referral ID Status Reason Start Date Expiration Date Visits Requested Visits Authorized [id number] Pending Review Auto-Generat ed Referral 05/02/2023 05/31/2024 1 1 Specialty Diagnoses / Procedures Referred By Contac t Referred To Contact MR IMAGING Diagnoses Abnormal reflex Procedures MRI CERVICAL SPINE WO IVCON MRI SPINAL CANAL CERVICAL W/O CONTRAST MATRL Araceli Torres PA-C [address] [place] [address] [place] [address] Referral ID Status Reason Start Date Expiration Date Visits Requested Visits Authorized [id number] Authorized Auto-Generat ed Referral 05/02/2023 05/31/2024 1 1 Specialty Diagnoses / Procedures Referred By Contac t Referred To Contact Diagnoses Intractable chronic migraine with aura and without status migrainosus Neuropathy Paresthesias Araceli Torres PA-C [address] [place] [address] Referral ID Status Reason Start Date Expiration Date V isits Requested Visits Authorized [id number] Pending Review 1 1 Specialty Diagnoses / Procedures Referred By Contac t Referred To Contact MR IMAGING Diagnoses Positional headache Procedures MRI BRAIN WO/W IVCON MRI BRAIN BRAIN STEM W/O W/CONTRAST MATERIAL Araceli Torres PA-C [address] [place] [address] Mr Imaging [facility] Referral ID Status Reason Start Date Expiration Date Visits Requested Visits Authorized [id number] Authorized Auto-Generat ed Referral 05/02/2023 05/31/2024 1 1 Specialty Diagnoses / Procedures Referred By Contac t Referred To Contact General Surgery Diagnoses Thyroid cyst Thyroid nodule Procedures CONSULT TO GENERAL SURGERY OFFICE/OUTPATIENT [facility] 60-74 MINUTES Netta Higgins PA-C [address] [place], [place] [id number] Referral ID Status Reason Start Date Expiration Date Visits Requested Visits Authorized [id number] Authorized PCP Requested Referral 02/15/2022 02/15/2023 1 1 Specialty Diagnoses / Procedures Referred By Contac t Referred To Contact Allergy Diagnoses Anaphylaxis, initial encounter Procedures CONSULT TO ALLERGY/IMMUNOLOGY OFFICE/OUTPATIENT [facility] 60-74 MINUTES Sandra López DO [address] [place] [address] Referral ID Status Reason Start Date Expiration Date Visits Requested Visits Authorized [id number] Authorized PCP Requested Referral 10/27/2021 10/27/2022 1 1 Specialty Diagnoses / Procedures Referred By Contac t Referred To Contact MR IMAGING Diagnoses Manley's palsy Facial weakness Procedures MRI BRAIN WO/W IVCON MRI BRAIN BRAIN STEM W/O W/CONTRAST MATERIAL Jaimee Carbajal, SSUAN.BURIAL AGENT [address] [place] [address] Mr Imaging Referral ID Status Reason Start Date Expiration Date Visits Requested Visits Authorized [id number] Authorized Auto-Generat ed Referral 08/26/2021 09/25/2022 1 1 Specialty Diagnoses / Procedures Referred By Contac t Referred To Contact [facility] Diagnoses Neuropathy Spinal stenosis of lumbar region without neurogenic claudication Procedures EMG(NEURO/NI) NERVE CONDUCTION STUDIES 9-10 STUDIES Jaimee Carbajal, SUSAN.BURIAL AGENT [address] [place] [address] [facility] [address] [place] [address] Referral ID Status Reason Start Date Expiration Date Visits Requested Visits Authorized [id number] Pending Review Auto-Generat ed Referral 08/26/2021 08/26/2022 1 1 Specialty Diagnoses / Procedures Referred By Contac t Referred To Contact MR IMAGING Diagnoses Spinal stenosis of lumbar region without neurogenic claudication Procedures MRI LUMBAR SPINE WO IVCON MRI SPINAL CANAL LUMBAR W/O CONTRAST MATERIAL Jaimee Carbajal, APPLICATION SUPPORT DEVELOPER.BURIAL AGENT [address] [place] [address] Mr Imaging Referral ID Status Reason Start Date Expiration Date Visits Requested Visits Authorized [id number] Authorized Auto-Generat ed Referral 08/26/2021 09/25/2022 1 1 Chief Complaint and Reason for Visit Chief Complaint gu bladder pain CELLULITIS CELLULITIS NEURO NEUROPATHY,SPINAL STENOSIS gu complaint Chief Complaint CELLULITIS NEURO NEUROPATHY,SPINAL STENOSIS gu complaint LAB WORK Chief Complaint NEUROPATHY,SPINAL ST ENOSIS gu complaint LONGTERM LABWORK LAB WORK FLANK PAIN Chief Complaint NEUROPATHY,SPINAL ST ENOSIS gu complaint LONGTERM LABWORK LAB WORK FLANK PAIN complain Chief Complaint NEUROPATHY,SPINAL ST ENOSIS gu complaint LONGTERM LABWORK LAB WORK FLANK PAIN complain LEFT FOOT CELLULITIS LEFT FOOT CELLULITIS Reason for Visit Cellulitis Chief Complaint NEUROPATHY,SPINAL ST ENOSIS gu complaint LONGTERM LABWORK LAB WORK FLANK PAIN complain LEFT FOOT CELLULITIS LEFT FOOT CELLULITIS LEFT FOOT CELLULITIS ABDOMINAL PAIN Reason for Visit Cellulitis Chief Complaint general illness bladder c/o, cellulitis REFRACTORY CELLULITIS Reason for Visit Cellulitis Failure of outpatient treatment Pyrexia Diabetes mellitus, type II Chief Complaint general illness bladder c/o, cellulitis REFRACTORY CELLULITIS REFRACTORY CELLULITIS REFRACTORY CELLULITIS REFRACTORY CELLULITIS REFRACTORY CELLULITIS REFRACTORY CELLULITIS REFRACTORY CELLULITIS Reason for Visit Cellulitis Cellulitis of left lower limb Diabetes mellitus with diabetic polyneuropathy Failure of outpatient treatment Foot osteomyelitis, left Pyrexia Type 2 diabetes mellitus with foot ulcer CKD (chronic kidney disease) Diabetes mellitus, type II 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 Chief Complaint REFRACTORY CELLULITIS REFRACTORY CELLULITIS REFRACTORY CELLULITIS PREOP REFRACTORY CELLULITIS REFRACTORY CELLULITIS REFRACTORY CELLULITIS REFRACTORY CELLULITIS HEEL WOUND, KIDNEY INFECTION Reason for Visit Cellulitis Cellulitis of left lower limb Failure of outpatient treatment Foot osteomyelitis, left 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 Pyrexia Type 2 diabetes mellitus with foot ulcer Chief Complaint REFRACTORY CELLULITI S REFRACTORY CELLULITIS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 Drug Abuse Patient Records regulations: The Federal rules restrict any use of the information to criminally investigate or prosecute any alcohol or drug abuse patient.[facility] HospitalIn the event this information is protected by the Federal Confidentiality of Alcohol and Drug Abuse Patient Records regulations: The Federal rules restrict any use of the information to criminally investigate or prosecute any alcohol or drug abuse patient.[facility] HospitalIn the event this information is protected by the Federal Confidentiality of Alcohol and Drug Abuse Patient Records regulations: The Federal rules restrict any use of the information to criminally investigate or prosecute any alcohol or drug abuse patient.[facility] HospitalIn the event this information is protected by the Federal Confidentiality of Alcohol and Drug Abuse Patient Records regulations: The Federal rules restrict any use of the information to criminally investigate or prosecute any alcohol or drug abuse patient.[facility] HospitalIn the event this information is protected by the Federal Confidentiality of Alcohol and Drug Abuse Patient Records regulations: The Federal rules restrict any use of the information to criminally investigate or prosecute any alcohol or drug abuse patient.[facility] HospitalIn the event this information is protected by the Federal Confidentiality of Alcohol and Drug Abuse Patient Records regulations: The Federal rules restrict any use of the information to criminally investigate or prosecute any alcohol or drug abuse patient.[facility] HospitalIn the event this information is protected by the Federal Confidentiality of Alcohol and Drug Abuse Patient Records regulations: The Federal rules restrict any use of the information to criminally investigate or prosecute any alcohol or drug abuse patient.[facility] HospitalIn the event this information is protected by the Federal Confidentiality of Alcohol and Drug Abuse Patient Records regulations: The Federal rules restrict any use of the information to criminally investigate or prosecute any alcohol or drug abuse patient.[facility] HospitalIn the event this information is protected by the Federal Confidentiality of Alcohol and Drug Abuse Patient Records regulations: The Federal rules restrict any use of the information to criminally investigate or prosecute any alcohol or drug abuse patient.[facility] HospitalIn the event this information is protected by the Federal Confidentiality of Alcohol and Drug Abuse Patient Records regulations: The Federal rules restrict any use of the information to criminally investigate or prosecute any alcohol or drug abuse patient.[facility] HospitalIn the event this information is protected by the Federal Confidentiality of Alcohol and Drug Abuse Patient Records regulations: The Federal rules restrict any use of the information to criminally investigate or prosecute any alcohol or drug abuse patient.[facility] HospitalIn the event this information is protected by the Federal Confidentiality of Alcohol and Drug Abuse Patient Records regulations: The Federal rules restrict any use of the information to criminally investigate or prosecute any alcohol or drug abuse patient.[facility] HospitalIn the event this information is protected by the Federal Confidentiality of Alcohol and Drug Abuse Patient Records regulations: The Federal rules restrict any use of the information to criminally investigate or prosecute any alcohol or drug abuse patient.[facility] HospitalIn the event this information is protected by the Federal Confidentiality of Alcohol and Drug Abuse Patient Records regulations: The Federal rules restrict any use of the information to criminally investigate or prosecute any alcohol or drug abuse patient.[facility] HospitalIn the event this information is protected by the Federal Confidentiality of Alcohol and Drug Abuse Patient Records regulations: The Federal rules restrict any use of the information to criminally investigate or prosecute any alcohol or drug abuse patient.[facility] HospitalIn the event this information is protected by the Federal Confidentiality of Alcohol and Drug Abuse Patient Records regulations: The Federal rules restrict any use of the information to criminally investigate or prosecute any alcohol or drug abuse patient.[facility] HospitalIn the event this information is protected by the Federal Confidentiality of Alcohol and Drug Abuse Patient Records regulations: The Federal rules restrict any use of the information to criminally investigate or prosecute any alcohol or drug abuse patient.[facility] HospitalIn the event this information is protected by the Federal Confidentiality of Alcohol and Drug Abuse Patient Records regulations: The Federal rules restrict any use of the information to criminally investigate or prosecute any alcohol or drug abuse patient.[facility] HospitalIn the event this information is protected by the Federal Confidentiality of Alcohol and Drug Abuse Patient Records regulations: The Federal rules restrict any use of the information to criminally investigate or prosecute any alcohol or drug abuse patient.[facility] HospitalIn the event this information is protected by the Federal Confidentiality of Alcohol and Drug Abuse Patient Records regulations: The Federal rules restrict any use of the information to criminally investigate or prosecute any alcohol or drug abuse patient.[facility] HospitalIn the event this information is protected by the Federal Confidentiality of Alcohol and Drug Abuse Patient Records regulations: The Federal rules restrict any use of the information to criminally investigate or prosecute any alcohol or drug abuse patient.[facility] HospitalIn the event this information is protected by the Federal Confidentiality of Alcohol and Drug Abuse Patient Records regulations: The Federal rules restrict any use of the information to criminally investigate or prosecute any alcohol or drug abuse patient.[facility] HospitalIn the event this information is protected by the Federal Confidentiality of Alcohol and Drug Abuse Patient Records regulations: The Federal rules restrict any use of the information to criminally investigate or prosecute any alcohol or drug abuse patient.[facility] HospitalIn the event this information is protected by the Federal Confidentiality of Alcohol and Drug Abuse Patient Records regulations: The Federal rules restrict any use of the information to criminally investigate or prosecute any alcohol or drug abuse patient.[facility] HospitalIn the event this information is protected by the Federal Confidentiality of Alcohol and Drug Abuse Patient Records regulations: The Federal rules restrict any use of the information to criminally investigate or prosecute any alcohol or drug abuse patient.[facility] HospitalIn the event this information is protected by the Federal Confidentiality of Alcohol and Drug Abuse Patient Records regulations: The Federal rules restrict any use of the information to criminally investigate or prosecute any alcohol or drug abuse patient.[facility] HospitalIn the event this information is protected by the Federal Confidentiality of Alcohol and Drug Abuse Patient Records regulations: The Federal rules restrict any use of the information to criminally investigate or prosecute any alcohol or drug abuse patient.[facility] HospitalIn the event this information is protected by the Federal Confidentiality of Alcohol and Drug Abuse Patient Records regulations: The Federal rules restrict any use of the information to criminally investigate or prosecute any alcohol or drug abuse patient.[facility] HospitalIn the event this information is protected by the Federal Confidentiality of Alcohol and Drug Abuse Patient Records regulations: The Federal rules restrict any use of the information to criminally investigate or prosecute any alcohol or drug abuse patient.[facility] HospitalIn the event this information is protected by the Federal Confidentiality of Alcohol and Drug Abuse Patient Records regulations: The Federal rules restrict any use of the information to criminally investigate or prosecute any alcohol or drug abuse patient.[facility] HospitalIn the event this information is protected by the Federal Confidentiality of Alcohol and Drug Abuse Patient Records regulations: The Federal rules restrict any use of the information to criminally investigate or prosecute any alcohol or drug abuse patient.[facility] HospitalIn the event this information is protected by the Federal Confidentiality of Alcohol and Drug Abuse Patient Records regulations: The Federal rules restrict any use of the information to criminally investigate or prosecute any alcohol or drug abuse patient.[facility] HospitalIn the event this information is protected by the Federal Confidentiality of Alcohol and Drug Abuse Patient Records regulations: The Federal rules restrict any use of the information to criminally investigate or prosecute any alcohol or drug abuse patient.[facility] HospitalIn the event this information is protected by the Federal Confidentiality of Alcohol and Drug Abuse Patient Records regulations: The Federal rules restrict any use of the information to criminally investigate or prosecute any alcohol or drug abuse patient.[facility] HospitalIn the event this information is protected by the Federal Confidentiality of Alcohol and Drug Abuse Patient Records regulations: The Federal rules restrict any use of the information to criminally investigate or prosecute any alcohol or drug abuse patient.[facility] HospitalIn the event this information is protected by the Federal Confidentiality of Alcohol and Drug Abuse Patient Records regulations: The Federal rules restrict any use of the information to criminally investigate or prosecute any alcohol or drug abuse patient.[facility] HospitalIn the event this information is protected by the Federal Confidentiality of Alcohol and Drug Abuse Patient Records regulations: The Federal rules restrict any use of the information to criminally investigate or prosecute any alcohol or drug abuse patient.[facility] HospitalIn the event this information is protected by the Federal Confidentiality of Alcohol and Drug Abuse Patient Records regulations: The Federal rules restrict any use of the information to criminally investigate or prosecute any alcohol or drug abuse patient.[facility] HospitalIn the event this information is protected by the Federal Confidentiality of Alcohol and Drug Abuse Patient Records regulations: The Federal rules restrict any use of the information to criminally investigate or prosecute any alcohol or drug abuse patient.[facility] HospitalIn the event this information is protected by the Federal Confidentiality of Alcohol and Drug Abuse Patient Records regulations: The Federal rules restrict any use of the information to criminally investigate or prosecute any alcohol or drug abuse patient.[facility] HospitalIn the event this information is protected by the Federal Confidentiality of Alcohol and Drug Abuse Patient Records regulations: The Federal rules restrict any use of the information to criminally investigate or prosecute any alcohol or drug abuse patient.[facility] HospitalIn the event this information is protected by the Federal Confidentiality of Alcohol and Drug Abuse Patient Records regulations: The Federal rules restrict any use of the information to criminally investigate or prosecute any alcohol or drug abuse patient.[facility] HospitalIn the event this information is protected by the Federal Confidentiality of Alcohol and Drug Abuse Patient Records regulations: The Federal rules restrict any use of the information to criminally investigate or prosecute any alcohol or drug abuse patient.[facility] HospitalIn the event this information is protected by the Federal Confidentiality of Alcohol and Drug Abuse Patient Records regulations: The Federal rules restrict any use of the information to criminally investigate or prosecute any alcohol or drug abuse patient.[facility] HospitalIn the event this information is protected by the Federal Confidentiality of Alcohol and Drug Abuse Patient Records regulations: The Federal rules restrict any use of the information to criminally investigate or prosecute any alcohol or drug abuse patient.[facility] HospitalIn the event this information is protected by the Federal Confidentiality of Alcohol and Drug Abuse Patient Records regulations: The Federal rules restrict any use of the information to criminally investigate or prosecute any alcohol or drug abuse patient.[facility] HospitalIn the event this information is protected by the Federal Confidentiality of Alcohol and Drug Abuse Patient Records regulations: The Federal rules restrict any use of the information to criminally investigate or prosecute any alcohol or drug abuse patient.[facility] HospitalIn the event this information is protected by the Federal Confidentiality of Alcohol and Drug Abuse Patient Records regulations: The Federal rules restrict any use of the information to criminally investigate or prosecute any alcohol or drug abuse patient.[facility] HospitalIn the event this information is protected by the Federal Confidentiality of Alcohol and Drug Abuse Patient Records regulations: The Federal rules restrict any use of the information to criminally investigate or prosecute any alcohol or drug abuse patient.[facility] HospitalIn the event this information is protected by the Federal Confidentiality of Alcohol and Drug Abuse Patient Records regulations: The Federal rules restrict any use of the information to criminally investigate or prosecute any alcohol or drug abuse patient.[facility] HospitalIn the event this information is protected by the Federal Confidentiality of Alcohol and Drug Abuse Patient Records regulations: The Federal rules restrict any use of the information to criminally investigate or prosecute any alcohol or drug abuse patient.[facility] HospitalIn the event this information is protected by the Federal Confidentiality of Alcohol and Drug Abuse Patient Records regulations: The Federal rules restrict any use of the information to criminally investigate or prosecute any alcohol or drug abuse patient.[facility] HospitalIn the event this information is protected by the Federal Confidentiality of Alcohol and Drug Abuse Patient Records regulations: The Federal rules restrict any use of the information to criminally investigate or prosecute any alcohol or drug abuse patient.[facility] HospitalIn the event this information is protected by the Federal Confidentiality of Alcohol and Drug Abuse Patient Records regulations: The Federal rules restrict any use of the information to criminally investigate or prosecute any alcohol or drug abuse patient.[facility] HospitalIn the event this information is protected by the Federal Confidentiality of Alcohol and Drug Abuse Patient Records regulations: The Federal rules restrict any use of the information to criminally investigate or prosecute any alcohol or drug abuse patient.[facility] HospitalIn the event this information is protected by the Federal Confidentiality of Alcohol and Drug Abuse Patient Records regulations: The Federal rules restrict any use of the information to criminally investigate or prosecute any alcohol or drug abuse patient.[facility] HospitalIn the event this information is protected by the Federal Confidentiality of Alcohol and Drug Abuse Patient Records regulations: The Federal rules restrict any use of the information to criminally investigate or prosecute any alcohol or drug abuse patient.[facility] HospitalIn the event this information is protected by the Federal Confidentiality of Alcohol and Drug Abuse Patient Records regulations: The Federal rules restrict any use of the information to criminally investigate or prosecute any alcohol or drug abuse patient.[facility] HospitalIn the event this information is protected by the Federal Confidentiality of Alcohol and Drug Abuse Patient Records regulations: The Federal rules restrict any use of the information to criminally investigate or prosecute any alcohol or drug abuse patient.[facility] HospitalIn the event this information is protected by the Federal Confidentiality of Alcohol and Drug Abuse Patient Records regulations: The Federal rules restrict any use of the information to criminally investigate or prosecute any alcohol or drug abuse patient.[facility] HospitalIn the event this information is protected by the Federal Confidentiality of Alcohol and Drug Abuse Patient Records regulations: The Federal rules restrict any use of the information to criminally investigate or prosecute any alcohol or drug abuse patient.[facility] HospitalIn the event this information is protected by the Federal Confidentiality of Alcohol and Drug Abuse Patient Records regulations: The Federal rules restrict any use of the information to criminally investigate or prosecute any alcohol or drug abuse patient.[facility] HospitalIn the event this information is protected by the Federal Confidentiality of Alcohol and Drug Abuse Patient Records regulations: The Federal rules restrict any use of the information to criminally investigate or prosecute any alcohol or drug abuse patient.[facility] HospitalIn the event this information is protected by the Federal Confidentiality of Alcohol and Drug Abuse Patient Records regulations: The Federal rules restrict any use of the information to criminally investigate or prosecute any alcohol or drug abuse patient.[facility] HospitalIn the event this information is protected by the Federal Confidentiality of Alcohol and Drug Abuse Patient Records regulations: The Federal rules restrict any use of the information to criminally investigate or prosecute any alcohol or drug abuse patient.[facility] HospitalIn the event this information is protected by the Federal Confidentiality of Alcohol and Drug Abuse Patient Records regulations: The Federal rules restrict any use of the information to criminally investigate or prosecute any alcohol or drug abuse patient.[facility] HospitalIn the event this information is protected by the Federal Confidentiality of Alcohol and Drug Abuse Patient Records regulations: The Federal rules restrict any use of the information to criminally investigate or prosecute any alcohol or drug abuse patient.[facility] HospitalIn the event this information is protected by the Federal Confidentiality of Alcohol and Drug Abuse Patient Records regulations: The Federal rules restrict any use of the information to criminally investigate or prosecute any alcohol or drug abuse patient.[facility] HospitalIn the event this information is protected by the Federal Confidentiality of Alcohol and Drug Abuse Patient Records regulations: The Federal rules restrict any use of the information to criminally investigate or prosecute any alcohol or drug abuse patient.[facility] HospitalIn the event this information is protected by the Federal Confidentiality of Alcohol and Drug Abuse Patient Records regulations: The Federal rules restrict any use of the information to criminally investigate or prosecute any alcohol or drug abuse patient.[facility] HospitalIn the event this information is protected by the Federal Confidentiality of Alcohol and Drug Abuse Patient Records regulations: The Federal rules restrict any use of the information to criminally investigate or prosecute any alcohol or drug abuse patient.[facility] HospitalIn the event this information is protected by the Federal Confidentiality of Alcohol and Drug Abuse Patient Records regulations: The Federal rules restrict any use of the information to criminally investigate or prosecute any alcohol or drug abuse patient.[facility] HospitalIn the event this information is protected by the Federal Confidentiality of Alcohol and Drug Abuse Patient Records regulations: The Federal rules restrict any use of the information to criminally investigate or prosecute any alcohol or drug abuse patient.[facility] HospitalIn the event this information is protected by the Federal Confidentiality of Alcohol and Drug Abuse Patient Records regulations: The Federal rules restrict any use of the information to criminally investigate or prosecute any alcohol or drug abuse patient.[facility] HospitalIn the event this information is protected by the Federal Confidentiality of Alcohol and Drug Abuse Patient Records regulations: The Federal rules restrict any use of the information to criminally investigate or prosecute any alcohol or drug abuse patient.[facility] HospitalIn the event this information is protected by the Federal Confidentiality of Alcohol and Drug Abuse Patient Records regulations: The Federal rules restrict any use of the information to criminally investigate or prosecute any alcohol or drug abuse patient.[facility] HospitalIn the event this information is protected by the Federal Confidentiality of Alcohol and Drug Abuse Patient Records regulations: The Federal rules restrict any use of the information to criminally investigate or prosecute any alcohol or drug abuse patient.[facility] HospitalIn the event this information is protected by the Federal Confidentiality of Alcohol and Drug Abuse Patient Records regulations: The Federal rules restrict any use of the information to criminally investigate or prosecute any alcohol or drug abuse patient.[facility] HospitalIn the event this information is protected by the Federal Confidentiality of Alcohol and Drug Abuse Patient Records regulations: The Federal rules restrict any use of the information to criminally investigate or prosecute any alcohol or drug abuse patient.[facility] HospitalIn the event this information is protected by the Federal Confidentiality of Alcohol and Drug Abuse Patient Records regulations: The Federal rules restrict any use of the information to criminally investigate or prosecute any alcohol or drug abuse patient.[facility] HospitalIn the event this information is protected by the Federal Confidentiality of Alcohol and Drug Abuse Patient Records regulations: The Federal rules restrict any use of the information to criminally investigate or prosecute any alcohol or drug abuse patient.[facility] HospitalIn the event this information is protected by the Federal Confidentiality of Alcohol and Drug Abuse Patient Records regulations: The Federal rules restrict any use of the information to criminally investigate or prosecute any alcohol or drug abuse patient.[facility] HospitalIn the event this information is protected by the Federal Confidentiality of Alcohol and Drug Abuse Patient Records regulations: The Federal rules restrict any use of the information to criminally investigate or prosecute any alcohol or drug abuse patient.[facility] HospitalIn the event this information is protected by the Federal Confidentiality of Alcohol and Drug Abuse Patient Records regulations: The Federal rules restrict any use of the information to criminally investigate or prosecute any alcohol or drug abuse patient.[facility] HospitalIn the event this information is protected by the Federal Confidentiality of Alcohol and Drug Abuse Patient Records regulations: The Federal rules restrict any use of the information to criminally investigate or prosecute any alcohol or drug abuse patient.[facility] HospitalIn the event this information is protected by the Federal Confidentiality of Alcohol and Drug Abuse Patient Records regulations: The Federal rules restrict any use of the information to criminally investigate or prosecute any alcohol or drug abuse patient.[facility] Reason for Visit (unrecogniz ed section and content) Reason Comments Established Patient Specialty Diagnoses / Procedures Referred By Contac t 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 CONSULT TO HEMATOLOGY/ONCOLOGY OFFICE/OUTPATIENT [facility] MDM 60 MINUTES Devin George APRN.BURIAL AGENT [address] [place] [address] Referral ID Status Reason Start Date Expiration Date V isits Requested Visits Authorized [id number] Closed PCP Requested Referral 12/04/2023 12/03/2024 1 1 Reason Comments Analytical Research Program Manager - Other Orders Patient Question Reason Comments Analytical Research Program Manager - Other Orders Patient Question Appointment Returning Patient's Call Reason Comments EMG order to [facility] Reason Comments New NI Medical Consult patient Specialty Diagnoses / Procedures Referred By Contac t Referred To Contact Neurology Diagnoses Spina bifida, unspecified hydrocephalus presence, unspecified spinal region (HCC) Neuropathy Procedures CONSULT TO NEUROLOGY NEW PATIENT VISIT LEVEL 5 Netta Higgins PA-C [address] [place] [address] Referral ID Status Reason Start Date Expiration Date V isits Requested Visits Authorized [id number] Closed PCP Requested Referral 11/23/2020 11/23/2021 1 1 Reason Comments Nurse Visit Reason Comments Analytical Research Program Manager - Other Orders Specialty Diagnoses / Procedures Referred By Contac t Referred To Contact MR IMAGING Diagnoses Manley's palsy Facial weakness Procedures MRI BRAIN WO/W IVCON MRI BRAIN BRAIN STEM W/O W/CONTRAST MATERIAL Jaieme Carbajal, APPLICATION SUPPORT DEVELOPER.BURIAL AGENT [address] [place] [id number] [facility] Referral ID Status Reason Start Date Expiration Date V isits Requested Visits Authorized [id number] Closed Auto-Generate d Referral 08/26/2021 09/25/2022 1 1 Specialty Diagnoses / Procedures Referred By Contac t Referred To Contact MR IMAGING Diagnoses Spinal stenosis of lumbar region without neurogenic claudication Procedures MRI LUMBAR SPINE WO IVCON MRI SPINAL CANAL LUMBAR W/O CONTRAST MATERIAL Jaimee Carbajal, APPLICATION SUPPORT DEVELOPER.BURIAL AGENT [address] [place] [address] Mr Imaging Referral ID Status Reason Start Date Expiration Date V isits Requested Visits Authorized [id number] Closed Auto-Generate d Referral 08/26/2021 09/25/2022 1 1 Reason Comments Anesthesia Consult Reason Comments PreOp Call A1C Reason Comments Patient Request Reason Comments Post Op Reason Comments Appointment Reason Comments D/C Summary Events Reason Comments Analytical Research Program Manager - Other Reason Comments New Specialty Diagnoses / Procedures Referred By Contac t Referred To Contact Allergy Diagnoses Anaphylaxis, initial encounter Procedures CONSULT TO ALLERGY/IMMUNOLOGY OFFICE/OUTPATIENT NEW HIGH MDM 60-74 MINUTES Sandra López DO [address] [place] [address] Referral ID Status Reason Start Date Expiration Date V isits Requested Visits Authorized [id number] Closed PCP Requested Referral 10/27/2021 10/27/2022 1 1 Reason Comments Follow Up Reason Comments Nurse Visit Reason Comments Radiology Mammogram Specialty Diagnoses / Procedures Referred By Contac t Referred To Contact BR IMAGING Diagnoses Encounter for screening mammogram for breast cancer Procedures ANGIE SCREENING SCREENING MAMMOGRAPHY BI 2-VIEW BREAST INC CAD Will Brannon MD [address] [place] [address] [facility] [address] [place] [address] Referral ID Status Reason Start Date Expiration Date V isits Requested Visits Authorized [id number] Closed Auto-Generate d Referral 12/15/2021 01/14/2023 1 1 Reason Comments Recheck Reason Comments Results Reason Comments Radiology US Specialty Diagnoses / Procedures Referred By Contac t Referred To Contact US IMAGING Diagnoses Thyroid cyst Procedures US THYROID/PARATHYROID US SOFT TISSUE HEAD & NECK REAL TIME IMGE Netta Lock PA-C [address] [place] [address] Us Imaging Referral ID Status Reason Start Date Expiration Date V isits Requested Visits Authorized [id number] Closed Auto-Generate d Referral 02/09/2022 03/11/2023 1 1 Reason Comments Consult Thyroid nodule Reason Comments Results Reason Comments Follow Up thyroid Reason Comments Diarrhea Upset stomach, cold and hot chills, nausea x 1 day Reason Comments Cook Catheter Change Nurse Visit Reason Comments Nurse Visit Tube Change-suprapubic Reason Comments XRay Report Reason Comments Cystoscopy-1 Reason Comments ER F/U [facility] ER Reason Comments Nurse Visit Cook Catheter Change Reason Comments ER Discharge Summary US, X-ray Reason Comments Orders Reason Comments Follow Up Constipation Reason Comments outside imaging ER report Reason Comments Follow Up Change suprapubic ca theter and yearly visit with urology. Reason Comments Nurse Visit SPT Reason Comments Consult Abnormal thyroid US. Reason Comments Procedure Ultrasound Guided Fi ne Needle Aspiration Thyroid right Reason Comments Follow Up Thyroid FNA Reason Comments New Patient Evaluation Specialty Diagnoses / Procedures Referred By Contac t Referred To Contact Diagnoses Metrorrhagia Procedures CONSULT TO CUSTOM SEAMSTRESS OFFICE/OUTPATIENT [facility] 60-74 MINUTES Will Brannon MD [address] [place] [address] Referral ID Status Reason Start Date Expiration Date V isits Requested Visits Authorized [id number] Closed PCP Requested Referral Auto-Generated Referral 03/29/2023 03/28/2024 1 1 Reason Comments Patient Update Reason Comments Follow Up Reason Comments Outside Imaging Specialty Diagnoses / Procedures Referred By Contac t Referred To Contact MR IMAGING Diagnoses Spinal stenosis of cervical region Procedures MRI CERVICAL SPINE WO IVCON MRI SPINAL CANAL CERVICAL W/O CONTRAST MATRL Stephan Nicholson MD [address] [place] [address] Mr Imaging [place] [address] Referral ID Status Reason Start Date Expiration Date V isits Requested Visits Authorized [id number] Closed Auto-Generate d Referral 07/18/2023 08/16/2024 1 1 Specialty Diagnoses / Procedures Referred By Contac t Referred To Contact Neurosurgery Diagnoses Lipomeningocele (HCC) Procedures CONSULT TO NEUROSURGERY OFFICE/OUTPATIENT [facility] 60 MINUTES Stephan Nicholson MD [address] [place] [address] Daiana Sweeney MD [facility] [place] [address] Referral ID Status Reason Start Date Expiration Date V isits Requested Visits Authorized [id number] Closed PCP Requested Referral 07/18/2023 07/17/2024 1 1 Reason Comments Medicare Wellness Exam Reason Comments Nurse Visit Supra Pubic catheter change Reason Comments SPT Reason Comments Follow Up Discuss labs Reason Comments Pre-Op Exam Specialty Diagnoses / Procedures Referred By Contac t Referred To Contact Diagnoses Tethered cord (HCC) Pre-op testing Procedures REFER TO PACC - PRE ANESTHESIA CONSULTATION CLINIC OFFICE/OUTPATIENT [facility] 60 MINUTES Hilda Nick PA-C [address] [place] [address] Referral ID Status Reason Start Date Expiration Date V isits Requested Visits Authorized [id number] Closed PCP Requested Referral 09/26/2023 09/25/2024 1 1 Reason Comments Ext / micro labs Reason Comments Outside [id number] Ordered Reason Comments Received Outside Medical Records ER Repo rt Reason Comments Hospital F/U Reason Comments Follow Up Cook Catheter Change Neurogenic Bladder Reason Comments Type 2 Diabetes Reason Comments Dexcom not covered by insurance Reason Comments New Patient Reason Comments Appointment Patient Update Reason Comments Schedule Surgery Patient Update Reason Comments Orders OV notes Reason Comments Outside Cardiac Event Monitor Reason Comments Follow Up Seeing Neurosurgery in February for surgery on spine, currently waiting for A1c to decrease, states she has had great improvement on the increased Lyrica, is taking 75 mg BID and is having less than 1 migraine a month Specialty Diagnoses / Procedures Referred By Contac t Referred To Contact Diagnoses 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) Diabetes mellitus with peripheral vascular disease (HCC) Procedures CONSULT TO DIABETES EDUCATION DSME/MNT MEDICAL NUTRITION ASSMT&IVNTJ INDIV EACH 15 AL MEDICAL NUTRITION ASSMT&IVNTJ INDIV EACH 15 AL MEDICAL NUTRITION ASSMT&IVNTJ INDIV EACH 15 [place] MEDICAL NUTRITION ASSMT&IVNTJ INDIV EACH 15 [place] Devin George, SUSAN.[employer]IAL AGENT [address] [place] [address] Referral ID Status Reason Start Date Expiration Date V isits Requested Visits Authorized [id number] Closed PCP Requested Referral 10/09/2023 10/08/2024 1 1 Reason Comments Nurse Visit SPT SPT change Reason Onset Date Comments Refill Request 01/31/2024 Reason Comments Schedule Surgery Reason Comments Consult Reason Comments ED Follow-up Reason Comments Radiology US Specialty Diagnoses / Procedures Referred By Contac t Referred To Contact US IMAGING Diagnoses Splenic infarct Procedures US ABD SPLEEN US ABDOMINAL REAL TIME W/[place] [address] [place] [address] [place] [address] Referral ID Status Reason Start Date Expiration Date V isits Requested Visits Authorized [id number] Closed Auto-Generate d Referral 03/18/2024 01/18/2025 1 1 Reason Comments Nurse Visit SPT Tube change Reason Comments F/U 6 months Specialty Diagnoses / Procedures Referred By Contac t Referred To Contact US IMAGING Diagnoses Thyroid cyst Procedures US THYROID/PARATHYROID US SOFT TISSUE HEAD & NECK REAL TIME IMGE Will Maldonado MD [address] [place] [address] [place] [address] Referral ID Status Reason Start Date Expiration Date V isits Requested Visits Authorized [id number] Closed Auto-Generate d Referral 04/10/2024 05/10/2025 1 1 Reason Comments Diabetic Eye Exam Type 2 IDDM Reason Comments ER F/U H - ER Reason Comments SPT Reason Comments ER Discharge Summary Reason Comments Established Patient MIGRAINE, CERVICAL V ERTEBRAL FUSION Reason Comments nose bleeds Headache Reason Comments Nurse Visit SPT tube change Reason Comments Outside Infectious Disease Reason Comments Outside Ortho Procedure Reason Onset Date Comments Population Health Navigation Outreach 10/14/2024 Vida/Workbench/ACO Reason Onset Date Comments Population Health Navigation Outreach 11/19/2024 Norma/Workbench/ACO Care Teams (unrecognized sec tion and content) Team Status: Active Member Role Status Dates Dr. Will Brannon MD Primary Care Provider Active Team Status: Inactive Member Role Status Dates Dr. Will Brannon MD Primary Care Provider Active Start: June 12, 2024 End: June 13, 2024 Dr. Rigo Espinal DO Attending Provider Active Start: June 12, 2024 End: June 13, 2024 Dr. Rigo Espinal DO Emergency Provider Active Start: June 12, 2024 End: June 13, 2024 Team Status: Inactive Member Role Status Dates Dr. Will Brannon MD Primary Care Provider Active Start: July 11, 2024 End: July 11, 2024 Dr. Dre Deal MD Attending Provider Active Sta rt: July 11, 2024 End: July 11, 2024 Dr. Dre Deal MD Emergency Provider Active Sta rt: July 11, 2024 End: July 11, 2024 Team Status: Inactive Member Role Status Dates Dr. Will Brannon MD Primary Care Provider Active Start: July 31, 2024 End: July 31, 2024 Dr. Ron Hernandez DO Attending Provider Active Start: July 31, 2024 End: July 31, 2024 Dr. Ron Hernandez DO Emergency Provider Active Start: July 31, 2024 End: July 31, 2024 Team Status: Inactive Member Role Status Dates Dr. Will Brannon MD Primary Care Provider Active Start: August 11, 2024 End: August 16, 2024 Dr. Kevin Barcenas MD Emergency Provider Active S tart: August 11, 2024 End: August 16, 2024 Dr. Ramana Rose DO Admit Provider Active Start: August 11, 2024 End: August 16, 2024 Dr. Ramana Rose DO Other Provider Active Start: August 11, 2024 End: August 16, 2024 Dr. Quynh Boyer DO Attending Provider Active Start: August 11, 2024 End: August 16, 2024 Dr. Bev Ngo MD Other Provider Active Start: August 11, 2024 End: August 16, 2024 Dr. Garcia Gonzalez DPM Other Provider Active St art: August 11, 2024 End: August 16, 2024 Team Status: Active Member Role Status Dates Dr. Will Brannon MD Primary Care Provider Active Start: August 12, 2024 Dr. Kevin Barcenas MD Emergency Provider Active S tart: August 12, 2024 Dr. Ramana Rose DO Admit Provider Active Start: August 12, 2024 Dr. Ramana Rose DO Other Provider Active Start: August 12, 2024 Dr. Quynh Boyer DO Attending Provider Active Start: August 12, 2024 Dr. Quynh Boyer DO Other Provider Active S tart: August 12, 2024 Dr. Garcia Gonzalez DPM Other Provider Active St art: August 12, 2024 Dr. Bev Ngo MD Other Provider Active Start: August 12, 2024 Team Status: Active Member Role Status Dates Dr. Will Brannon MD Primary Care Provider Active Start: August 13, 2024 Dr. Kevin Barcenas MD Emergency Provider Active S tart: August 13, 2024 Dr. Ramana Rose DO Admit Provider Active Start: August 13, 2024 Dr. Ramana Rose DO Other Provider Active Start: August 13, 2024 Dr. Quynh Boyer DO Attending Provider Active Start: August 13, 2024 Dr. Quynh Boyer , Other Provider Active S tart: August 13, 2024 Dr. Bev Ngo MD Other Provider Active Start: August 13, 2024 Dr. Garcia Gonzalez DPM Other Provider Active St art: August 13, 2024 Team Status: Active Member Role Status Dates Dr. Will Brannon MD Primary Care Provider Active Start: August 14, 2024 Dr. Kevin Barcenas MD Emergency Provider Active S tart: August 14, 2024 Dr. Ramana Rose DO Admit Provider Active Start: August 14, 2024 Dr. Ramana Rose DO Other Provider Active Start: August 14, 2024 Dr. Quynh Boyer DO Attending Provider Active Start: August 14, 2024 Dr. Quynh Boyer DO Other Provider Active S tart: August 14, 2024 Dr. Bev Ngo MD Other Provider Active Start: August 14, 2024 Dr. Garcia Gonzalez DPM Other Provider Active St art: August 14, 2024 Team Status: Active Member Role Status Dates Dr. Will Brannon MD Primary Care Provider Active Start: August 15, 2024 Dr. Kevin Barcenas MD Emergency Provider Active S tart: August 15, 2024 Dr. Ramana Rose DO Admit Provider Active Start: August 15, 2024 Dr. Ramana Rose DO Other Provider Active Start: August 15, 2024 Dr. Quynh Boyer DO Attending Provider Active Start: August 15, 2024 Dr. Quynh Boyer DO Other Provider Active S tart: August 15, 2024 Dr. Bev Ngo MD Other Provider Active Start: August 15, 2024 Dr. Garcia Gonzalez DPM Other Provider Active St art: August 15, 2024 Team Status: Active Member Role Status Dates Dr. Will Brannon MD Primary Care Provider Active Start: August 16, 2024 Dr. Kevin Barcenas MD Emergency Provider Active S tart: August 16, 2024 Dr. Ramana Rose , Admit Provider Active Start: August 16, 2024 Dr. Ramana Rose , Other Provider Active Start: August 16, 2024 Dr. Quynh Boyer DO Attending Provider Active Start: August 16, 2024 Dr. Quynh Boyer , Other Provider Active S tart: August 16, 2024 Dr. Bev Ngo MD Other Provider Active Start: August 16, 2024 Dr. Garcia Gonzalez DPM Other Provider Active St art: August 16, 2024 Team Status: Active Member Role Status Dates Dr. Will Brannon MD Primary Care Provider Active Start: August 19, 2024 Dr. Emilee RODRIGUEZ MD Attending Provider Active Start: August 19, 2024 Team Status: Active Member Role Status Dates Dr. Will Brannon MD Primary Care Provider Active Start: August 26, 2024 Dr. Emilee RODRIGUEZ MD Attending Provider Active Start: August 26, 2024 Dr. Emilee RODRIGUEZ MD Referring Provider Active Start: August 26, 2024 Team Status: Active Member Role Status Dates Dr. Will Brannon MD Primary Care Provider Active Start: September 02, 2024 Dr. Emilee RODRIGUEZ MD Attending Provider Active Start: September 02, 2024 Team Status: Active Member Role Status Dates Dr. Will Brannon MD Primary Care Provider Active Start: September 03, 2024 Dr. Emilee RODRIGUEZ MD Attending Provider Active Start: September 03, 2024 Dr. Emilee RODRIGUEZ MD Referring Provider Active Start: September 03, 2024 Team Status: Active Member Role Status Dates Dr. Will Brannon MD Primary Care Provider Active Start: September 09, 2024 Dr. Emilee RODRIGUEZ MD Attending Provider Active Start: September 09, 2024 Dr. Emilee RODRIGUEZ MD Referring Provider Active Start: September 09, 2024 Hospital Product Specialist Relationship Specialty Start Date End Date Will Brannon MD [address] [place] [address] PCP - General Family Practice 02/10/[address] [facility] [address] Boyer 02/22/[address] [facility] [address] Faria 02/22/19 Hospital Product Specialist Relationship Specialty Start Date End Date Will Brannon MD [address] [place] [address] PCP - General Family Practice 02/10/[address] [facility] [address] Boyer 02/22/[address] [facility] [address] Faria 02/22/19 Hospital Product Specialist Relationship Specialty Start Date End Date Will Brannon MD [address] [place] [address] PCP - General Family Practice 02/10/[address] [facility] [address] Boyer 02/22/[address] [facility] [address] Faria 02/22/19 Hospital Product Specialist Relationship Specialty Start Date End Date Will Brannon MD [address] [place] [address] PCP - General Family Practice 02/10/[address] [facility] [address] Boyer 02/22/[address] [facility] [address] Faria 02/22/19 Hospital Product Specialist Relationship Specialty Start Date End Date Will Brannon MD [address] [place] [address] PCP - General Family Practice 02/10/[address] [facility] [address] Boyer 02/22/[address] [facility] [address] Faria 02/22/19 Hospital Product Specialist Relationship Specialty Start Date End Date Will Brannon MD [address] [place] [address] PCP - General Family Practice 02/10/[address] [facility] [address] Boyer 02/22/[address] [facility] [address] Faria 02/22/19 Hospital Product Specialist Relationship Specialty Start Date End Date Will Brannon MD [address] [place] [address] PCP - General Family Practice 02/10/[address] [facility] [address] Boyer 02/22/[address] [facility] [address] Faria 02/22/19 Hospital Product Specialist Relationship Specialty Start Date End Date Will Brannon MD [address] [place] [address] PCP - General Family Practice 02/10/[address] [facility] [address] Boyer 02/22/[address] [facility] [address] Faria 02/22/19 Hospital Product Specialist Relationship Specialty Start Date End Date Will Brannon MD [address] [place] [address] PCP - General Family Practice 02/10/[address] [facility] [address] Boyer 02/22/[address] [facility] [address] Faria 02/22/19 Hospital Product Specialist Relationship Specialty Start Date End Date Will Brannon MD [address] [place] [address] PCP - General Family Practice 02/10/[address] [facility] [address] Boyer 02/22/[address] [facility] [address] Faria 02/22/19 Hospital Product Specialist Relationship Specialty Start Date End Date Will Brannon MD [address] [place] [address] PCP - General Family Practice 02/10/[address] [facility] [address] Boyer 02/22/[address] [facility] [address] Faria 02/22/19 Hospital Product Specialist Relationship Specialty Start Date End Date Will Brannon MD [address] [place] [address] PCP - General Family Practice 02/10/[address] [facility] [address] Boyer 02/22/[address] [facility] [address] Faria 02/22/19 Hospital Product Specialist Relationship Specialty Start Date End Date Will Brannon MD [address] [place] [address] PCP - General Family Practice 02/10/[address] [facility] [address] Boyer 02/22/[address] [facility] [address] Faria 02/22/19 Hospital Product Specialist Relationship Specialty Start Date End Date Will Brannon MD [address] [place] [address] PCP - General Family Practice 02/10/[address] [facility] [address] Boyer 02/22/[address] [facility] [address] Faria 02/22/19 Hospital Product Specialist Relationship Specialty Start Date End Date Will Brannon MD [address] [place] [address] PCP - General Family Practice 02/10/[address] [facility] [address] Boyer 02/22/[address] [facility] [address] Faria 02/22/19 Hospital Product Specialist Relationship Specialty Start Date End Date Will Brannon MD [address] [place] [address] PCP - General Family Practice 02/10/[address] [facility] [address] Boyer 02/22/[address] [facility] [address] Faria 02/22/19 Hospital Product Specialist Relationship Specialty Start Date End Date Will Brannon MD [address] [place] [address] PCP - General Family Practice 02/10/[address] [facility] [address] Boyer 02/22/[address] [facility] [address] Faria 02/22/19 Hospital Product Specialist Relationship Specialty Start Date End Date Will Brannon MD [address] [place] [address] PCP - General Family Practice 02/10/[address] [facility] [address] Boyer 02/22/[address] [facility] [address] Faria 02/22/19 Hospital Product Specialist Relationship Specialty Start Date End Date Will Brannon MD [address] [place] [address] PCP - General Family Practice 02/10/[address] [facility] [address] Boyer 02/22/[address] [facility] [address] Faria 02/22/19 Hospital Product Specialist Relationship Specialty Start Date End Date Will Brannon MD [address] [place] [address] PCP - General Family Practice 02/10/[address] [facility] [address] Boyer 02/22/[address] [facility] [address] Faria 02/22/19 Hospital Product Specialist Relationship Specialty Start Date End Date Will Brannon MD [address] [place] [address] PCP - General Family Practice 02/10/[address] [facility] [address] Boyer 02/22/[address] [facility] [address] Faria 02/22/19 Hospital Product Specialist Relationship Specialty Start Date End Date Will Brannon MD [address] [place] [address] PCP - General Family Practice 02/10/[address] [facility] [address] Boyer 02/22/[address] [facility] [address] Faria 02/22/19 Hospital Product Specialist Relationship Specialty Start Date End Date Will Brannon MD [address] [place] [address] PCP - General Family Medicine 02/10/[address] [facility] [address] Boyer 02/22/[address] [facility] [address] Faria 02/22/19 Hospital Product Specialist Relationship Specialty Start Date End Date Will Brannon MD [address] [place] [address] PCP - General Family Medicine 02/10/[address] [facility] [address] Boyer 02/22/[address] [facility] [address] Faria 02/22/19 Hospital Product Specialist Relationship Specialty Start Date End Date Will Brannon MD [address] [place] [address] PCP - General Family Medicine 02/10/[address] [facility] [address] Boyer 02/22/[address] [facility] [address] Faria 02/22/19 Hospital Product Specialist Relationship Specialty Start Date End Date Will Brannon MD [address] [place] [address] PCP - General Family Medicine 02/10/15 [facility] [place] [facility] Boyer 02/22/[address] [facility] [address] Faria 02/22/19 Hospital Product Specialist Relationship Specialty Start Date End Date Will Brannon MD [address] [facility] [place] [address] PCP - General Family Medicine 02/10/[address] [facility] [address] Boyer 02/22/[address] [facility] [address] Faria 02/22/19 Hospital Product Specialist Relationship Specialty Start Date End Date Will Brannon MD [address] [facility], [place] [id number] PCP - General Family Medicine 02/10/[address] [facility] [address] Boyer 02/22/[address] [facility] [address] Faria 02/22/19 Team Status: Active Member Role Status Dates Dr. Will Brannon MD Family Provider Active Dr. Will Brannon MD Primary Care Provider Active Team Status: Inactive Member Role Status Dates Dr. Will Brannon MD Primary Care Provider Active Dr. Kevin Barcenas MD Attending Provider, Emergency Pro vider Active Team Status: Inactive Member Role Status Dates Dr. Will Brannon MD Primary Care Provider Active Dr. Alexander Hooks DO Attending Provider, Emergency Pr ovider Active Team Status: Inactive Member Role Status Dates Dr. Will Brannon MD Primary Care Provider Active Dr. Kristen Ohara MD Attending Provider, Emergency Provider Active Team Status: Active Member Role Status Dates Dr. Will Brannon MD Primary Care Provider Active Dr. Alexander Hooks DO Emergency Provider Active Dr. Brittani Panda MD Admit Provider, Attending Provid er Active Team Status: Active Member Role Status Dates Dr. Will Brannon MD Primary Care Provider Active Dr. Alexander Hooks DO Emergency Provider Active Dr. Brittani Panda MD Admit Provider, At tending Provider, Other Provider Active Team Status: Active Member Role Status Dates Dr. Will Brannon MD Primary Care Provider Active Dr. Alexander Hooks , DO Emergency Provider Active Dr. Brittani Panda MD Admit Provider, Other Provider A ctive Dr. Quynh Boyer , DO Attending Provider, Other Pro vider Active Dr. Bev Ngo MD Other Provider Active Dr. Will Guo DPBayron Other Provider Active Team Status: Active Member Role Status Dates Dr. Will Brannon MD Primary Care Provider Active Dr. Alexander Hooks , DO Emergency Provider Active Dr. Brittani Panda MD Admit Provider, Other Provider A ctive Dr. Bev Ngo MD Other Provider Active Dr. Will Guo , DPM Other Provider Active Dr. Rigo Encarnacion , DO Attending Provider, Other Provid er Active Dr. Quynh Boyer , DO Other Provider Active Team Status: Inactive Member Role Status Dates Dr. Will Brannon MD Primary Care Provider Active Dr. Alexander Hooks , DO Emergency Provider Active Dr. Brittani Panda MD Admit Provider, Other Provider A ctive Dr. Bev Ngo MD Other Provider Active Dr. Will Guo , DPBayron Other Provider Active Dr. Rigo Encarnacion , DO Attending Provider Active Dr. Quynh Boyer , DO Other Provider Active Hospital Product Specialist Relationship Specialty Start Date End Date Will Brannon MD [address] [place] [address] PCP - General Family Medicine 02/10/[address] [facility] [address] Boyer 02/22/[address] [facility] [address] Faria 02/22/19 Hospital Product Specialist Relationship Specialty Start Date End Date Will Brannon MD [address] [place] [address] PCP - General Family Medicine 02/10/[address] [facility] [address] Boyer 02/22/[address] [facility] [address] Faria 02/22/19 Hospital Product Specialist Relationship Specialty Start Date End Date Will Brannon MD [address] [place] [address] PCP - General Family Medicine 02/10/[address] [facility] [address] Boyer 02/22/[address] [facility] [address] Faria 02/22/19 Hospital Product Specialist Relationship Specialty Start Date End Date Will Brannon MD [address] [place] [address] PCP - General Family Medicine 02/10/[address] [facility] [address] Boyer 02/22/[address] [facility] [address] Faria 02/22/19 Hospital Product Specialist Relationship Specialty Start Date End Date Will Brannon MD [address] [place] [address] PCP - General Family Medicine 02/10/[address] [facility] [address] Boyer 02/22/[address] [facility] [address] Faria 02/22/19 Team Status: Active Member Role Status Dates Dr. Will Brannon MD Primary Care Provider Active Dr. Rojas Oates MD Attending Provider Active Dr. Brittani Panda MD Referring Provider Active Team Status: Inactive Member Role Status Dates Dr. Will Brannon MD Primary Care Provider Active Keaton Stone MD Emergency Provider Active Hospital Product Specialist Relationship Specialty Start Date End Date Will Brannon MD [address] [place] [address] PCP - General Family Medicine 02/10/[address] [facility] [address] Boyer 02/22/[address] [facility] [address] Faria 02/22/19 Hospital Product Specialist Relationship Specialty Start Date End Date Will Brannon MD [address] [place] [address] PCP - General Family Medicine 02/10/[address] [facility] [address] Boyer 02/22/[address] [facility] [address] Faria 02/22/19 Hospital Product Specialist Relationship Specialty Start Date End Date Will Brannon MD [address] [facility], [place] [address] PCP - General Family Medicine 02/10/[address] [facility] [address] Boyer 02/22/[address] [facility] [address] Faria 02/22/19 Hospital Product Specialist Relationship Specialty Start Date End Date Will Brannon MD [address] [place] [address] PCP - General Family Medicine 02/10/[address] [facility] [address] Boyer 02/22/[address] [facility] [address] Faria 02/22/19 Hospital Product Specialist Relationship Specialty Start Date End Date Will Brannon MD [address] [place] [address] PCP - General Family Medicine 02/10/[address] [facility] [address] Boyer 02/22/[address] [facility] [address] Faria 02/22/19 Team Status: Inactive Member Role Status Dates Dr. Will Brannon MD Primary Care Provider, Referri ng Provider Active Dr. Adi Monson MD Attending Provider Active Team Status: Inactive Member Role Status Dates Dr. Will Brannon MD Primary Care Provider Active Keaton Stone MD Attending Provider, Emergency Provid er Active Team Status: Inactive Member Role Status Dates Dr. Will Brannon MD Primary Care Provider Active Dr. Taya Wong MD Emergency Provider Active Hospital Product Specialist Relationship Specialty Start Date End Date Will Brannon MD [address] [place], [place] [id number] PCP - General Family Medicine 02/10/[address] [facility] [address] Boyer 02/22/[address] [facility] [address] Faria 02/22/19 Hospital Product Specialist Relationship Specialty Start Date End Date Will Brannon MD [address] [facility], [place] [address] PCP - General Family Medicine 02/10/[address] [facility] [address] Boyer 02/22/[address] [facility] [address] Faria 02/22/19 Hospital Product Specialist Relationship Specialty Start Date End Date Will Brannon MD [address] [place] [address] PCP - General Family Medicine 02/10/[address] [facility] [address] Boyer 02/22/[address] [facility] [address] Faria 02/22/19 Hospital Product Specialist Relationship Specialty Start Date End Date Will Brannon MD [address] [place] [address] PCP - General Family Medicine 02/10/[address] [facility] [address] Boyer 02/22/[address] [facility] [address] Faria 02/22/19 Team Status: Inactive Member Role Status Dates Dr. Will Brannon MD Primary Care Provider Active Dr. Taya Wong MD Attending Provider, Emergency Provider Active Team Status: Inactive Member Role Status Dates Dr. Will Brannon MD Primary Care Provider Active Dr. Agustin Aguilar DO Attending Provider, Emergency Provider Active Team Status: Inactive Member Role Status Dates Dr. Will Brannon MD Primary Care Provider Active Dr. Dre Deal MD Emergency Provider Active Hospital Product Specialist Relationship Specialty Start Date End Date Will Brannon MD [address] [place] [address] PCP - General Family Medicine 02/10/[address] [facility] [address] Boyer 02/22/[address] [facility] [address] Faria 02/22/19 Team Status: Inactive Member Role Status Dates Dr. Will Brannon MD Primary Care Provider Active Dr. Dre Deal MD Attending Provider, Emergency Provi karely Active Team Status: Inactive Member Role Status Dates Dr. Will Brannon MD Primary Care Provider Active Dr. Bev Ngo MD Attending Provider, [facility] Provider Active [facility] Product Specialist Relationship Specialty Start Date End Date Will Brannon MD [address] [place], [place] [id number] PCP - General Family Medicine 02/10/[address] [facility] [address] Boyer 02/22/[address] [facility] [address] Faria 02/22/19 Hospital Product Specialist Relationship Specialty Start Date End Date Will Brannon MD [address] [place], [place] [address] PCP - General Family Medicine 02/10/15 Katie Vegas RN Primary Care Mobile Heavy Equipment Operator Internal Medicine 12/27/22 01/26/[address] [facility] [address] Boyer 02/22/[address] [facility] [address] Faria 02/22/19 Hospital Product Specialist Relationship Specialty Start Date End Date Will Brannon MD [address] [place], [place] [address] PCP - General Family Medicine 02/10/15 Katie Vegas RN Primary Care Mobile Heavy Equipment Operator Internal Medicine 12/27/22 01/26/[address] [facility] [address] Boyer 02/22/[address] [facility] [address] Faria 02/22/19 Team Status: Inactive Member Role Status Dates Dr. Will Brannon MD Primary Care Provider Active Dr. Rigo Espinal , DO Emergency Provider Active Hospital Product Specialist Relationship Specialty Start Date End Date Will Brannon MD [address] [place] [address] PCP - General Family Medicine 02/10/[address] [facility] [address] Boyer 02/22/[address] [facility] [address] Faria 02/22/19 Hospital Product Specialist Relationship Specialty Start Date End Date Will Brannon MD [address] [place] [address] PCP - General Family Medicine 02/10/[address] [facility] [address] Boyer 02/22/[address] [facility] [address] Faria 02/22/19 Hospital Product Specialist Relationship Specialty Start Date End Date Will Brannon MD [address] [place] [address] PCP - General Family Medicine 02/10/[address] [facility] [address] Boyer 02/22/[address] [facility] [address] Faria 02/22/19 Hospital Product Specialist Relationship Specialty Start Date End Date Wlil Brannon MD [address] [place] [address] PCP - General Family Medicine 02/10/[address] [facility] [address] Boyer 02/22/[address] [facility] [address] Faria 02/22/19 Hospital Product Specialist Relationship Specialty Start Date End Date Will Brannon MD [address] [place] [address] PCP - General Family Medicine 02/10/15 [facility] [place] [address] Boyer 02/22/[address] [facility] [address] Faria 02/22/19 Team Status: Inactive Member Role Status Dates Dr. Will Brannon MD Primary Care Provider Active Dr. Rigo Espinal DO Attending Provider, Emergency Nadia serrano Active Team Status: Inactive Member Role Status Dates Dr. Will Brannon MD Primary Care Provider Active Dr. Xavier Josue MD Attending Provider Active Team Status: Inactive Member Role Status Dates Dr. Will Brannon MD Primary Care Provider Active Dr. Kevin Barcenas MD Emergency Provider Active Hospital Product Specialist Relationship Specialty Start Date End Date Will Brannon MD [address] [place], [place] [address] PCP - General Family Medicine 02/10/[address] [facility] [address] Boyer 02/22/[address] [facility] [address] Faria 02/22/19 Hospital Product Specialist Relationship Specialty Start Date End Date Will Brannon MD [address] [place] [address] PCP - General Family Medicine 02/10/[address] [facility] [address] Boyer 02/22/[address] [facility] [address] Faria 02/22/19 Hospital Product Specialist Relationship Specialty Start Date End Date Will Brannon MD [address] [place] [address] PCP - General Family Medicine 02/10/[address] [facility] [address] Boyer 02/22/[address] [facility] [address] Faria 02/22/19 Hospital Product Specialist Relationship Specialty Start Date End Date Will Brannon MD [address] [place] [address] PCP - General Family Medicine 02/10/15 [facility] [place] [facility] Boyer 02/22/[address] [facility] [address] Faria 02/22/19 Hospital Product Specialist Relationship Specialty Start Date End Date Will Brannon MD [address] [place] [address] PCP - General Family Medicine 02/10/15 [facility] [place] [facility] Boyer 02/22/[address] [facility] [address] Faria 02/22/19 Hospital Product Specialist Relationship Specialty Start Date End Date Will Brannon MD [address] [place], [place] [id number] [phone] PCP - General Family Medicine 02/10/[address] [facility] [address] Boyer 02/22/[address] [facility] [address] Faria 02/22/19 Team Status: Inactive Member Role Status Dates Dr. Will Brannon MD Primary Care Provider Active LEAD INSPECTOR. Fifi Browne Attending Provider, Referring Provid er Active Team Status: Inactive Member Role Status Dates Dr. Will Brannon MD Primary Care Provider Active Dr. Xavier Sanderson DO Emergency Provider Active Hospital Product Specialist Relationship Specialty Start Date End Date Will Brannon MD [address] [place] [address] PCP - General Family Medicine 02/10/[address] [facility] [address] Boyer 02/22/[address] [facility] [address] Faria 02/22/19 Hospital Product Specialist Relationship Specialty Start Date End Date Will Brannon MD [address] [place], [place] [address] [phone] PCP - General Family Medicine 02/10/[address] [facility] [address] Boyer 02/22/[address] [facility] [address] Faria 02/22/19 Hospital Product Specialist Relationship Specialty Start Date End Date Will Brannon MD [address] [place] [address] PCP - General Family Medicine 02/10/[address] [facility] [address] Boyer 02/22/[address] [facility] [address] Faria 02/22/19 Hospital Product Specialist Relationship Specialty Start Date End Date Will Brannon MD [address] [place] [address] PCP - General Family Medicine 02/10/[address] [facility] [address] Boyer 02/22/[address] [facility] [address] Faria 02/22/19 Hospital Product Specialist Relationship Specialty Start Date End Date Will Brannon MD [address] [place] [address] PCP - General Family Medicine 02/10/[address] [facility] [address] Boyer 02/22/[address] [facility] [address] Faria 02/22/19 Hospital Product Specialist Relationship Specialty Start Date End Date Will Brannon MD [address] [place] [address] PCP - General Family Medicine 02/10/[address] [facility] [address] Boyer 02/22/[address] [facility] [address] Faria 02/22/19 Hospital Product Specialist Relationship Specialty Start Date End Date Will Brannon MD [address] [place] [address] PCP - General Family Medicine 02/10/[address] [facility] [address] Boyer 02/22/[address] [facility] [address] Faria 02/22/19 Team Status: Inactive Member Role Status Dates Dr. Will Brannon MD Primary Care Provider Active Dr. Xavier Sanderson DO Attending Provider, Trinh serrano Active Hospital Product Specialist Relationship Specialty Start Date End Date Will Brannon MD [address] [place] [address] PCP - General Family Medicine 02/10/[address] [facility] [address] Boyer 02/22/[address] [facility] [address] Faria 02/22/19 Hospital Product Specialist Relationship Specialty Start Date End Date Will Brannon MD [address] [place] [address] PCP - General Family Medicine 02/10/[address] [facility] [address] oByer 02/22/[address] [facility] [address] Faria 02/22/19 Hospital Product Specialist Relationship Specialty Start Date End Date Will Brannon MD [address] [place] [address] PCP - General Family Medicine 02/10/[address] [facility] [address] Boyer 02/22/[address] [facility] [address] Faria 02/22/19 Hospital Product Specialist Relationship Specialty Start Date End Date Will Brannon MD [address] [place], [place] [address] [phone] PCP - General Family Medicine 02/10/[address] [facility] [address] Boyer 02/22/[address] [facility] [address] Faria 02/22/19 Hospital Product Specialist Relationship Specialty Start Date End Date Will Brannon MD [address] [place] [address] PCP - General Family Medicine 02/10/15 [facility] [address] Boyer 02/22/[address] [facility] [address] Faria 02/22/19 Hospital Product Specialist Relationship Specialty Start Date End Date Will Brannon MD [address] [place] [address] PCP - General Family Medicine 02/10/[address] [facility] [address] Boyer 02/22/[address] [facility] [address] Faria 02/22/19 Hospital Product Specialist Relationship Specialty Start Date End Date Will Brannon MD [address] [place] [address] PCP - General Family Medicine 02/10/[address] [facility] [address] Boyer 02/22/[address] [facility] [address] Faria 02/22/19 Hospital Product Specialist Relationship Specialty Start Date End Date Will Brannon MD [address] [place] [address] PCP - General Family Medicine 02/10/[address] [facility] [address] Boyer 02/22/[address] [facility] [address] Faria 02/22/19 Hospital Product Specialist Relationship Specialty Start Date End Date Will Brannon MD [address] [place] [address] PCP - General Family Medicine 02/10/[address] [facility] [address] Boyer 02/22/[address] [facility] [address] Faria 02/22/19 Hospital Product Specialist Relationship Specialty Start Date End Date Will Brannon MD [address] [place] [address] PCP - General Family Medicine 02/10/[address] [facility] [address] Boyer 02/22/[address] [facility] [address] Faria 02/22/19 Hospital Product Specialist Relationship Specialty Start Date End Date Will Brannon MD [address] [place] [address] PCP - General Family Medicine 02/10/[address] [facility] [address] Boyer 02/22/[address] [facility] [address] Faria 02/22/19 Hospital Product Specialist Relationship Specialty Start Date End Date Will Brannon MD [address] [place] [address] PCP - General Family Medicine 02/10/[address] [facility] [address] Boyer 02/22/[address] [facility] [address] Faria 02/22/19 Hospital Product Specialist Relationship Specialty Start Date End Date Will Brannon MD [address] [place] [address] PCP - General Family Medicine 02/10/[address] [facility] [address] Boyer 02/22/[address] [facility] [address] Faria 02/22/19 Hospital Product Specialist Relationship Specialty Start Date End Date Will Brannon MD [address] [place] [address] PCP - General Family Medicine 02/10/[address] [facility] [address] Boyer 02/22/[address] [facility] [address] Faria 02/22/19 Hospital Product Specialist Relationship Specialty Start Date End Date Will Brannon MD [address] [place] [address] PCP - General Family Medicine 02/10/[address] [facility] [address] Boyer 02/22/[address] [facility] [address] Faria 02/22/19 Hospital Product Specialist Relationship Specialty Start Date End Date Will Brannon MD [address] [place] [address] PCP - General Family Medicine 02/10/[address] [facility] [address] Boyer 02/22/[address] [facility] [address] Faria 02/22/19 Hospital Product Specialist Relationship Specialty Start Date End Date Will Brannon MD [address] [place] [address] PCP - General Family Medicine 02/10/[address] [facility] [address] Boyer 02/22/[address] [facility] [address] Faria 02/22/19 Hospital Product Specialist Relationship Specialty Start Date End Date Will Brannon MD [address] [place] [address] PCP - General Family Medicine 02/10/[address] [facility] [address] Boyer 02/22/[address] [facility] [address] Faria 02/22/19 Hospital Product Specialist Relationship Specialty Start Date End Date Will Brannon MD [address] [place] [address] PCP - General Family Medicine 02/10/[address] [facility] [address] Boyer 02/22/[address] [facility] [address] Faria 02/22/19 Hospital Product Specialist Relationship Specialty Start Date End Date Will Barnnon MD [address] [place] [address] PCP - General Family Medicine 02/10/[address] [facility] [address] Boyer 02/22/[address] [facility] [address] Faria 02/22/19 Hospital Product Specialist Relationship Specialty Start Date End Date Will Brannon MD [address] [place] [address] PCP - General Family Medicine 02/10/[address] [facility] [address] Boyer 02/22/[address] [facility] [address] Faria 02/22/19 Hospital Product Specialist Relationship Specialty Start Date End Date Will Brannon MD [address] [place] [address] PCP - General Family Medicine 02/10/[address] [facility] [address] Boyer 02/22/[address] [facility] [address] Faria 02/22/19 Hospital Product Specialist Relationship Specialty Start Date End Date Will Brannon MD [address] [place] [address] PCP - General Family Medicine 02/10/[address] [facility] [address] Boyer 02/22/[address] [facility] [address] Faria 02/22/19 Hospital Product Specialist Relationship Specialty Start Date End Date Will Brannon MD [address] [place] [address] PCP - General Family Medicine 02/10/[address] [facility] [address] Boyer 02/22/[address] [facility] [address] Faria 02/22/19 Hospital Product Specialist Relationship Specialty Start Date End Date Will Brannon MD [address] [place] [address] PCP - General Family Medicine 02/10/[address] [facility] [address] Boyer 02/22/[address] [facility] [address] Faria 02/22/19 Hospital Product Specialist Relationship Specialty Start Date End Date Will Brannon MD [address] [place] [address] PCP - General Family Medicine 02/10/[address] [facility] [address] Boyer 02/22/[address] [facility] [address] Faria 02/22/19 Hospital Product Specialist Relationship Specialty Start Date End Date Will Brannon MD [address] [place] [address] PCP - General Family Medicine 02/10/[address] [facility] [address] Boyer 02/22/[address] [facility] [address] Faria 02/22/19 Hospital Product Specialist Relationship Specialty Start Date End Date Will Brannon MD [address] [place] [address] PCP - General Family Medicine 02/10/[address] [facility] [address] Boyer 02/22/[address] [facility] [address] Faria 02/22/19 Hospital Product Specialist Relationship Specialty Start Date End Date Will Brannon MD [address] [place] [address] PCP - General Family Medicine 02/10/[address] [facility] [address] Boyer 02/22/[address] [facility] [address] Faria 02/22/19 Hospital Product Specialist Relationship Specialty Start Date End Date Will Brannon MD [address] [place] [address] PCP - General Family Medicine 02/10/[address] [facility] [address] Boyer 02/22/[address] [facility] [address] Faria 02/22/19 Hospital Product Specialist Relationship Specialty Start Date End Date Will Brannon MD [address] [place] [address] PCP - General Family Medicine 02/10/[address] [facility] [address] Boyer 02/22/[address] [facility] [address] Faria 02/22/19 Hospital Product Specialist Relationship Specialty Start Date End Date Will Brannon MD [address] [place] [address] PCP - General Family Medicine 02/10/15 Devin George APRN.BURIAL AGENT [address] [place] [address] [employer] Family [facility] 05/04/24 Netta Higgins PA-C [address] [place] [address] [employer] [facility] 05/04/24 [facility] [place] [facility] Boyer 02/22/19 [facility] wound [place] Dr Faria 02/22/19 Hospital Product Specialist Relationship Specialty Start Date End Date Will Brannon MD [address] [place] [address] PCP - General Family Medicine 02/10/15 Devin George APRN.BURIAL AGENT [address] [place] [address] [facility] 05/04/24 Netta Higgins PA-C [address] [place] [address] [facility] 05/04/[address] [facility] [address] Boyer 02/22/19 [facility] wound [place] Dr Faria 02/22/19 Hospital Product Specialist Relationship Specialty Start Date End Date Will Brannon MD [address] [place] [address] PCP - General Family Medicine 02/10/15 Devin George APRN.BURIAL AGENT [address] [place] [address] [employer] [facility] 05/04/24 Netta Higgins PA-C [address] [place] [address] [employer] [facility] 05/04/[address] [facility] [address] Boyer 02/22/19 [facility] wound [place] Dr Faria 02/22/19 Hospital Product Specialist Relationship Specialty Start Date End Date Will Brannon MD [address] [place] [address] PCP - General Family Medicine 02/10/15 Devin George, SUSAN.BURIAL AGENT [address] [place] [address] [employer] Family [facility] 05/04/24 Netta Higgins PA-C [address] [place] [address] [employer] [facility] 05/04/[address] [facility] [address] Boyer 02/22/[address] [facility] [address] Faria 02/22/19 Hospital Product Specialist Relationship Specialty Start Date End Date Will Brannon MD [address] [place] [address] PCP - General Family Medicine 02/10/15 Devin George APRN.BURIAL AGENT [address] [place] [address] [employer] [facility] 05/04/24 Netta Higgins PA-C [address] [place] [address] [employer] [facility] 05/04/[address] [facility] [address] Boyer 02/22/[address] [facility] [address] Faria 02/22/19 Hospital Product Specialist Relationship Specialty Start Date End Date Will Brannon MD [address] [place] [address] PCP - General Family Medicine 02/10/15 Devin George APRN.BURIAL AGENT [address] [place] [address] [phone] [employer] Family [facility] 05/04/24 Netta Higgins PA-C [address] [place] [address] [employer] [facility] 05/04/[address] [facility] [address] Boyer 02/22/[address] [facility] [address] Faria 02/22/19 Hospital Product Specialist Relationship Specialty Start Date End Date Will Brannon MD [address] [place] [address] PCP - General Family Medicine 02/10/15 Devin George APRN.BURIAL AGENT [address] [place] [address] [employer] [facility] 05/04/24 Netta Higgins PA-C [address] [place] [address] [employer] [facility] 05/04/[address] [facility] [address] Boyer 02/22/[address] [facility] [address] Faria 02/22/19 Hospital Product Specialist Relationship Specialty Start Date End Date Will Brannon MD [address] [place], [place] [id number] PCP - General Family Medicine 02/10/15 Devin George APRN.BURIAL AGENT [address] [place], [place] [phone] [employer] [facility] 05/04/24 Netta Higgins PA-C [address] [place], [place] [phone] [facility] 05/[facility] [facility] [address] Boyer 02/22/19 [facility] center Dr Faria 02/22/19 Team Status: Active Member Role Status Dates Dr. Will Brannon MD Primary Care Provider Active Start: April 24, 2024 Dr. Will Brannon MD Attending Provider Active Start: April 24, 2024 Dr. Will Brannon MD Referring Provider Active Start: April 24, 2024 Team Status: Inactive Member Role Status Dates Dr. Will Brannon MD Primary Care Provider Active Start: May 21, 2024 End: May 21, 2024 Dr. Will Brannon MD Attending Provider Active Start: May 21, 2024 End: May 21, 2024 Dr. Will Brannon MD Referring Provider Active Start: May 21, 2024 End: May 21, 2024 Team Status: Inactive Member Role Status Dates Dr. Will Brannon MD Primary Care Provider Active Start: June 09, 2024 End: June 09, 2024 Dr. Arnold Caban DO Attending Provider Active Start : June 09, 2024 End: June 09, 2024 Dr. Arnold Caban DO Emergency Provider Active Start : June 09, 2024 End: June 09, 2024 Team Status: Inactive Member Role Status Dates Dr. Will Brannon MD Primary Care Provider Active Start: July 31, 2024 End: July 31, 2024 Dr. Ron Hernandez DO Emergency Provider Active Start: July 31, 2024 End: July 31, 2024 Team Status: Active Member Role Status Dates Dr. Will Brannon MD Primary Care Provider Active Start: August 11, 2024 Dr. Kevin Barcenas MD Emergency Provider Active S tart: August 11, 2024 Dr. Ramana Rose DO Admit Provider Active Start: August 11, 2024 Dr. Ramana Rose DO Attending Provider Active Start: August 11, 2024 Hospital Product Specialist Relationship Specialty Start Date End Date Will Brannon MD [address] [place] [address] PCP - General Family Medicine 09/02/24 Devin George, SUSAN.BURIAL AGENT [address] [place] [phone] [employer] Family [facility] 05/04/24 Netta Higgins PA-C [address] [place] [address] [phone] [employer] [facility] 05/04/24 [facility] [place] Dr Boyer 02/22/19 [facility] wound center Dr Faria 02/22/19 Hospital Product Specialist Relationship Specialty Start Date End Date Will Brannon MD [address] [place] [address] PCP - General Family Medicine 09/02/24 Devin George, APPLICATION SUPPORT DEVELOPER.BURIAL AGENT [facility] [place], [place] [address] [facility] 05/04/24 Netta Higgins PA-C [address] [place], [place] [address] [employer] [facility] 05/04/[address] [facility] [address] Boyer 02/22/19 [facility] wound [place] Dr Faria 02/22/19 Hospital Product Specialist Relationship Specialty Start Date End Date Will Brannon MD [address] [place] [address] PCP - General Family Medicine 09/02/24 Devin George APRN.BURIAL AGENT [address] [place] [address] [employer] Family [facility] 05/04/24 Netta Higgins PA-C [address] [place] [address] [employer] [facility] 05/04/[address] [facility] [address] Boyer 02/22/[address] [facility] [address] Faria 02/22/19 Hospital Product Specialist Relationship Specialty Start Date End Date Will Brannon MD [address] [place] [address] PCP - General Family Medicine 09/02/24 Devin George APRN.BURIAL AGENT [address] [place] [phone] [employer] [facility] 10/28/24 Netta Higgins PA-C [address] [place] [address] [employer] [facility] 10/28/[address] [facility] [address] Boyer 02/22/19 [facility] wound [place] Dr Faria 02/22/19 Hospital Product Specialist Relationship Specialty Start Date End Date Will Brannon MD [address] [place] [phone] PCP - General Family Medicine 09/02/24 Devin George APRN.CNP [address] [place] [phone] [employer] [facility] 10/28/24 Netta Higgins PA-C [address] [place] [phone] [employer]ic [facility] 10/28/24 [facility] [place] [facility] Boyer 02/22/19 [facility] center Dr Faria 02/22/19 Goals (unrecognized section and content) Goals may be documented in a n alternate section Care Team (unrecognized sect ion and content) Care Team Personnel Name: WILL BRANNON MD Member Role: Primary Care Physician Address: Address: [address] [place] [address]- Care Team Related Persons Name: MEHDI BAILON Care Team Personnel Name: WILL BRANNON MD Member Role: Primary Care Physician Address: Address: [address] [place] [address]- Name: CIERRA NAQVI MD Position: Resident Member Role: Resident Address: Address: [address] [place] [address]- Name: FALGUNI BRICE MD Position: ED Physician Member Role: ED Physician Address: Address: [address] [facility] [address]- Name: Blessing Brice RN Position: RN Member Role: RN Care Team Related Persons Name: MEHDI BAILON Care Team Personnel Name: WILL BRANNON MD Member Role: Primary Care Physician Address: Address: [address] [place] [address]- Name: BRADY DOMINGUEZ MD Position: ED Physician Member Role: ED Physician Address: Address: [facility] [address] [place] [address] [place] [address]- Care Team Related Persons Name: MEHDI BAILON Care Team Personnel Name: WILL BRANNON MD Member Role: Primary Care Physician Address: Address: [address] [place], [place] [id number] Name: DAMIR BLUNT DO Position: ED Physician Member Role: ED Physician Address: Address: [facility] [address] [place] [id number]- Care Team Related Persons Name: MEHDI BAILON Care Team Personnel Name: WILL BRANNON MD Member Role: Primary Care Physician Address: Address: [address] [place] [address]- [place] Name: DAMIR BLUNT DO Position: ED Physician Member Role: ED Physician Address: Address: [facility] [address] [place], [place] [id number] Care Team Related Persons Name: MEHDI BAILON FOR RECORDS PERTAINING TO PATIENTS WHO ARE OR HAVE BEEN ENROLLED IN A CHEMICAL DEPENDENCY/SUBSTANCEABUSE PROGRAM, SOME INFORMATION MAY BE OMITTED. This clinical summary was aggregated from multiple sources. Caution should be exercised in using it in the provision of clinical care. This summary normalizes information from multiple sources, and as a consequence, information in this document may materially change the coding, format and clinical context of patient data. In addition, data may be omitted in some cases. CLINICAL DECISIONS SHOULD BE BASED ON THE PRIMARY CLINICAL RECORDS. [facility] [employer] [facility]. provides no warranty or guarantee of the accuracy or completeness of information in this document.
[2024-11-19 22:55] LABS: Absolute Lymphocyte Count 4.81 X10^3/uL (0.83-4.51); Absolute Neutrophil Count 5.6 X10^3/uL (2.0-7.7); Basophil# 0.09 X10^3/uL; Basophil% 0.8 % (0-1); Eosinophil# 0.13 X10^3/uL; Eosinophils% 1.1 % (0-5); Hematocrit 41.1 % (37-47); Lymphocyte # 4.81 X10^3/ul (0.83-4.51); Lymphocyte % 40.2 % (19-41); Mean Corp Hgb Conc 34.1 g/dL (32-36); Mean Corpuscular Hgb 30.3 pg (27.0-32.0); Monocyte# 1.18 X10^3/uL; Monocyte% 9.9 % (0-10); NRBC Flagged by Analyzer 0 % (0-5); Neutrophil # 5.64 X10^3/uL (2.7-7.7); Neutrophil % 47.1 % (47-70); Platelet Count 184 K/mm3 (150-450); RBC Distribution Width CV 13.9 % (11.6-14.6); RBC Distribution Width SD 44.7 fl (35.1-43.9); Red Blood Count 4.62 M/mm3 (4.2-5.4)
[2024-11-19] MEDS: Ondansetron 4 MG/2 ML Vial IV (22:58)
[2024-11-19] MEDS: 0.9% Normal Saline (1000mL) 1,000 ML 1000 ML IV (22:58)
[2024-11-19] MEDS: Morphine 4 MG/ML Syringe IV (22:58)
[2024-11-19 22:59] VITALS: BP 120/84; PULSE 67; RESP 18; TEMP 36.9; O2SAT 100
[2024-11-19 23:02] LABS: Internal QC Validated? YES +Cl - CLEAR BKGD; Pregnancy, Serum, hCG Quali. NEGATIVE Negative
[2024-11-19 23:05] LABS: International Normalized Ratio 0.9; Prothrombin Time (Protime)PT. 12.6 SECONDS (11.7-14.9)
[2024-11-19 23:06] LABS: Partial Thromboplast Time 26.2 Seconds (24.1-36.2)
[2024-11-19 23:41] LABS: Anion Gap 13 (5-15); BUN 20 mg/dL (4-19); BUN/Creat Ratio 24.1 RATIO (10-20); Calcium,Total 8.8 mg/dL (7.6-11.0); Carbon Dioxide 17.3 mmol/L (21.0-32.0); Chloride 103 mmol/L (98-108); Creatinine, Serum 0.81 mg/dL (0.70-1.20); EST Glomerular Filtration Rate 92 (>60); Glucose 272 mg/dL (70-99); Potassium 4.7 mmol/L (3.3-5.1); Sodium Level 133 mmol/L (133-145)
[2024-11-19 23:42] LABS: Lactic Acid 1.8 mmol/L (0.0-2.0)
[2024-11-20] VITALS: BP 125/89; PULSE 89; RESP 16; TEMP 36.8; O2SAT 100
[2024-11-20 01:00] VITALS: BP 123/77; PULSE 62; RESP 16; TEMP 36.8; O2SAT 99
[2024-11-20 01:04] LABS: Mucous, Urine 0 SEEN /hpf (<or=2+)
[2024-11-20 01:06] LABS: Color, Urine Yellow (Yellow); Glucose, Dipstick 1000 mg/dl (Normal); Ketone-Dipstick Negative (Negative); Leukocyte Esterase-Dipstick 500 /ul (Negative); Nitrite-Dipstick Positive (Negative); Occult Blood-Urine 25 /ul (Negative); Protein-Dipstick 100 mg/dl (Negative); Specific Gravity, Urine 1.015 (1.002-1.030); Urine Bilirubin Dipstick Negative (Negative); Urine Clarity Sl. Cloudy (Clear); Urine Urobilinogen Normal (Normal); Urine pH 6.5 (5.0 - 8.0)
[2024-11-20 01:41] LABS: Bacteria 3+ /hpf (None Seen); Red Blood Cells-Urine 5-10 SEEN /hpf (0-5); Squamous Epithelial Cells - UA 0-5 SEEN /hpf (5-10); White Blood Cells 50-100 SEEN /hpf (0-5)
[2024-11-20 01:59] VITALS: BP 114/84; PULSE 60; RESP 16; TEMP 36.8; O2SAT 98
[2024-11-20] MEDS: levoFLOXacin IV 750 MG/150 ML BAG 100 MG IV (02:11)
[2024-11-20 03:50] VITALS: BP 116/74; PULSE 65; RESP 16; TEMP 36.8; O2SAT 98
== END 2024-11-20 04:03 | disposition home or self-care (01) ==
PROVIDERS: Emergency Provider Emergency Medicine; PCP Family Medicine; Visit Provider Emergency Medicine
DX: N39.0 Urinary tract infection, site not specified (principal); Q05.9 Spina bifida, unspecified; E11.22 Type 2 diabetes mellitus with diabetic chronic kidney disease; E11.42 Type 2 diabetes mellitus with diabetic polyneuropathy; N18.9 Chronic kidney disease, unspecified; Z83.3 Family history of diabetes mellitus; E78.5 Hyperlipidemia, unspecified; I12.9 Hypertensive chronic kidney disease with stage 1 through stage 4 chronic kidney disease, or unspecified chronic kidney disease; Z87.440 Personal history of urinary (tract) infections; Z98.84 Bariatric surgery status; Z90.49 Acquired absence of other specified parts of digestive tract
CPT/HCPCS: 80048; 81001; 83605; 84703; 85025; 85610; 85730; 87040; 87077; 87086; 87088; 87186; 96361; 96365; 96366; 96375; 99283; A4216; J2405

== ENCOUNTER 2025-03-08 18:49 | Emergency (ER) | payer MEDICARE, MEDICAID, SELFPAY ==
[2025-03-08 18:50] VITALS: BP 148/108; PULSE 87; RESP 16; TEMP 36.6; O2SAT 100
--- NOTE | 2025-03-08 19:21 | CT_ITS ---
PROCEDURE: ABDOMEN/PELVIS W IV CONT ONLY 03/08/2025 REASON FOR EXAM: BACK PAIN, HX OF UTI WITH STONES TECHNIQUE: Procedure Code: [id number] Modality: CT Procedure: ABDOMEN/PELVIS W IV CONT ONLY Coronal and Sagittal reconstruction series were provided. CONTRAST: Isovue-300 VOLUME: 75 mL One or more dose reduction techniques were used (e.g., Automated exposure control, adjustment of the mA and/or kV according to patient size, use of iterative reconstruction technique. COMPARISON: 09/2022 FINDINGS: The lung bases are clear. The liver and spleen are unremarkable. The pancreas is unremarkable. The left kidney has a normal appearance. There are areas of scarring involving the right kidney with a nonobstructing calculus in its lower pole. There is a suprapubic catheter in place. No bladder or ureteral calculi are seen. Prior bowel surgery. There is a colostomy on the left which also contains portions of herniated bowel. However, this does not result in a bowel obstruction. There is no pneumatosis or bowel dilatation. Cystic changes in the right adnexa are present measuring up to 4 cm x 3.[address]/Abdomen/Pelvis W IV Cont ONLY IMPRESSION: Colostomy on the left with additional herniation of bowel but no obstruction. Right renal scarring with nonobstructing stone. Cystic changes right adnexa which could represent a prominent cyst or follicle. Overall, no bowel obstruction or abscess Reading [facility]
--- NOTE | 2025-03-08 19:22 | EKG12_ITS ---
Test Reason : FLANK PAIN Blood Pressure : */* mmHG Vent. Rate : 81 BPM Atrial Rate : 81 BPM P-R Int : 148 ms QRS Dur : 78 ms QT Int : 400 ms P-R-T Axes : 20 28 9 degrees QTcB Int : 464 ms Normal sinus rhythm Normal ECG Confirmed by YARIEL FITZGERALD, ANUM ([id number]), editor trade journal WILBUR FARRAR ([id number]) on 03/11/2025 7:39:34 AM Referred By: SIRI Confirmed By: ANUM SALDIVAR MD
[2025-03-08 19:36] LABS: Mucous, Urine 0 SEEN /hpf (<or=2+); Squamous Epithelial Cells - UA 0 SEEN /hpf (5-10)
--- NOTE | 2025-03-08 19:37 | EX.ED.DYSGE1 ---
HPI History of Present Illness Chief Complaint: Flank Pain Narrative Narrative: Patient is a 44-year-old female with past medical history of spina bifida with a history of a suprapubic catheter as well as colostomy, type 2 diabetes, chronic kidney disease, hypertension who presented to the emergency department chief complaint of back pain and concern for a infection in her urine. States that she has not been on any antibiotics for about a month she states that her symptoms started a few days ago. She states that she does grow abnormal bacteria out in the past. She does not recall the exact name of these. She states that she had her suprapubic catheter changed about a month ago and is scheduled here in the near future to have this replaced here at [place]. She also is complaining of nausea [facility] Medical History Multiple drug resistant organism (MDRO) culture positive Non-pressure chronic ulcer of other part of left foot with necrosis of muscle Cutaneous abscess of left foot Fever Abscess of left heel Morbid obesity with BMI of 40.0-44.9, adult Therapy failure due to antibiotic resistance Leukocytosis Cellulitis of left leg Cellulitis of foot, left Type 2 diabetes mellitus with foot ulcer Suprapubic catheter Noncompliance with diabetes treatment Diabetes mellitus with diabetic polyneuropathy Depression Open wound of left foot Microalbuminuria CKD (chronic kidney disease) 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 Diabetic polyneuropathy Non-smoker Weakness Hyperglycemia Sepsis Urinary tract infection Diabetic foot infection Urinary tract infection Thyroid cyst Hematochezia Chronic nausea Insomnia PSVT (paroxysmal supraventricular tachycardia) Panic attacks Hyperlipidemia Lipomeningocele History of kidney stones Essential hypertension Dysthymic disorder DJD (degenerative joint disease) of thoracic spine Arthritis Anxiety and depression Uninodular goiter Non-compliance UTI (urinary tract infection) Cellulitis of left lower extremity Infection of bladder catheter Ulcer of left heel and midfoot with fat layer exposed Lower extremity edema Delayed wound healing Type 2 diabetes mellitus with diabetic polyneuropathy Diabetic ulcer of left heel with fat layer exposed Normochromic normocytic anemia Constipation Neurogenic bowel Neurogenic bladder Hydronephrosis of right kidney UTI (urinary tract infection) Diabetes mellitus, type II Morbid obesity with BMI of 40.0-44.9, adult Spina bifida aperta of lumbar spine History of migraine Chronic back pain Home Medications ?Medication ?Instructions ?Recorded ?Last Taken ?Type furosemide 20 mg tablet 20 mg PO 2200 fluid 08/28/18 08/10/24 History furosemide 40 mg tablet 40 mg PO BREAKFAST fluid 04/05/19 08/10/24 History oxybutynin chloride 15 mg 15 mg PO DAILY bladder 11/12/19 08/10/24 History tablet,extended release 24 hr acetaminophen 500 mg tablet 1,000 mg PO TID PRN PRN Pain Or 02/12/20 08/11/24 History Fever trazodone 100 mg tablet 100 mg PO QHS sleep 01/19/21 08/10/24 History atorvastatin 80 mg tablet 80 mg PO DAILY cholesterol 01/29/21 08/10/24 History pen needle, diabetic 32 gauge x #400 ea 03/05/21 Unknown Rx 5/32 (BD Ultra-Fine Hope Pen Needle) lisinopril 5 mg tablet 2.5 mg (1/2 x 5 mg) PO DAILY #90 01/21/22 08/10/24 Rx tabs pen needle, diabetic 32 gauge x #350 ea 09/01/22 Unknown Rx 5/32 (BD Ultra-Fine Hope Pen Needle) loratadine 10 mg tablet (Allergy 10 mg PO DAILY Antigistamine 11/07/23 08/10/24 History Relief (loratadine)) propranolol 20 mg tablet 20 mg PO BID Beta Pan 11/07/23 08/10/24 History ondansetron 4 mg disintegrating 4 mg PO Q8H PRN PRN Nausea #20 tabs 06/09/24 08/11/24 Rx tablet promethazine 25 mg tablet 25 mg PO TID PRN nausea and 07/31/24 08/01/24 Rx vomiting #20 tabs divalproex 500 mg tablet,delayed 500 mg PO QHS Migraine Headaches 08/11/24 08/10/24 History release omeprazole 20 mg capsule,delayed 20 mg PO DAILY PPI 08/11/24 08/10/24 History release cholecalciferol (vitamin D3) 125 125 mcg PO DAILY #0 caps 08/16/24 Unknown Rx mcg (5,000 unit) capsule enoxaparin 40 mg/0.4 mL 40 mg (0.4 mL) subcut BID #0 mL 08/16/24 Unknown Rx subcutaneous syringe insulin glargine-yfgn 100 unit/mL 30 unit (0.3 mL) subcut QHS #1 mL 08/16/24 Unknown Rx (3 mL) subcutaneous pen insulin lispro 100 unit/mL 12 unit (0.12 mL) subcut TIDCM #0 08/16/24 Unknown Rx subcutaneous pen (Humalog KwikPen mL (U-100) Insulin) insulin lispro 100 unit/mL See Protocol subcut TIDCM #0 mL 08/16/24 Unknown Rx subcutaneous pen (Humalog KwikPen (U-100) Insulin) linezolid 600 mg tablet 600 mg PO BID #0 tabs 08/16/24 Unknown Rx metronidazole 500 mg tablet 500 mg PO TID #22 tabs 08/16/24 Unknown Rx oxycodone 5 mg tablet 5 mg PO Q4H PRN PRN Pain Score 08/16/24 Unknown Rx 1-10 3 days #10 tabs pregabalin 75 mg capsule 75 mg PO BID #6 caps 08/16/24 Unknown Rx nitrofurantoin 100 mg PO Q12 #14 CAPSULES 11/20/24 Unknown Rx monohydrate/macrocrystals 100 mg capsule levofloxacin 500 mg tablet 500 mg PO DAILY 5 days #5 tabs 03/09/25 Unknown Rx Allergy/AdvReac Type Severity Reaction Status Date / Time Cephalosporins Allergy Severe Anaphylaxis Verified 03/08/25 18:51 piperacillin (From Zosyn) Allergy Intermediate Hives Verified 03/08/25 18:51 ceftriaxone (From Rocephin) Allergy Anaphylaxis Verified 03/08/25 18:51 mushroom Allergy Anaphylaxis Verified 03/08/25 18:51 peanut Allergy Anaphylaxis Verified 03/08/25 18:51 tazobactam (From Zosyn) Allergy NEEDS Verified 03/08/25 18:51 FOLLOW-UP fentanyl AdvReac Low blood Verified 03/08/25 18:51 pressure gabapentin AdvReac Other Verified 03/08/25 18:51 Gadolinium-MRI Contrast AdvReac Vomiting Verified 03/08/25 18:51 Medium Latex, Natural Rubber AdvReac Rash Verified 03/08/25 18:51 vancomycin AdvReac Rash Verified 03/08/25 18:51 Family History Mother CVA (cerebral vascular accident) Thyroid disorder Diabetes Hypertension Heart disease Hyperlipidemia Myocardial infarction, Onset Age: 54 mother had diabetes Father Cancer skin Grandmother Cancer liver Other Arthritis Skin cancer Surgical History S/P colostomy S/P thyroid biopsy (~11/06/19) history insertion suprapubic catheter Status post gastric surgery Hx of foot surgery Hx of ventral hernia repair History of spinal surgery History of cholecystectomy History of dilation and curettage Social History (Updated 03/08/25 @ 20:01 by Denise Busby) household members: significant other housing: house Smoking Status: Never smoker alcohol intake: current substance use type: does not use ROS ROS ED ROS Narrative Constitutional: Denies any fevers or chills Cardiovascular: Denies chest pain Respiratory: Denies shortness of breath Abdomen: Complains of nausea as noted above denies abdominal pain : Complains of concern for urinary tract infection as noted above Neurological: Denies any new neurological symptoms Musculoskeletal: Complains of back pain as noted above Skin: Denies any rashes or lesions EXAM Physical Exam Narrative Exam Narrative: General: Patient is lying in bed rest comfortably did not appear to be acute distress Head: Atraumatic, normocephalic Eyes: PERRL bilaterally, EOMI bilaterally, no conjunctival injection noted Neck: Soft, supple, trachea midline Cardiovascular: Regular rate and rhythm Respiratory: Clear to auscultation bilaterally Abdomen: Soft, nondistended, suprapubic catheter in place no surrounding erythema or purulent drainage noted coming from the site itself, colostomy in place Extremities: +5/5 strength noted to bilateral upper and lower extremities Neurological: Patient my commands knew that she was at [facility] year is 25 Skin: Warm, dry contact no rashes lesions noted Const Vital Signs: 03/08/25 18:50 03/08/25 20:00 03/08/25 20:00 Temperature 97.8 F 98 F Temperature Source Temporal Oral Pulse Rate 87 69 Respiratory Rate 16 16 Blood Pressure 148/108 H 109/69 Blood Pressure Mean 121 82 Pulse Ox 100 98 98 Oxygen Delivery Method Room Air Room Air Room Air 03/08/25 21:00 03/08/25 22:00 03/08/25 23:00 Temperature 98.1 F 98 F 98.1 F Temperature Source Oral Oral Oral Pulse Rate 70 71 68 Respiratory Rate 16 16 18 Blood Pressure 124/86 H 134/78 H 123/74 H Blood Pressure Mean 98 96 90 Pulse Ox 99 98 97 Oxygen Delivery Method Room Air Room Air 03/09/25 00:00 03/09/25 00:02 Temperature 98 F 98 F Temperature Source Oral Pulse Rate 62 62 Respiratory Rate 18 18 Blood Pressure 159/62 H 159/62 H Blood Pressure Mean 94 94 Pulse Ox 97 97 Oxygen Delivery Method MDM MDM MDM Narrative Medical decision making narrative: Patient is a 44-year-old female who presented to the emergency department the chief complaint of concern for UTI in the setting of suprapubic catheter as her tubing is extremely cloudy which it was completely clear a few days ago. On the differential diagnose includes but not limited to UTI, pyelonephritis, urolithiasis, pyelonephritis. Once workup is obtained reviewed she will be reevaluated. Patient was ordered 30 cc/kg bolus of IV fluids at 1925 which was 2500 mL as she has a BMI of greater than 30 therefore this was based on ideal body weight. Patient was given dose of meropenem based on previous cultures and sensitivities There was significant delay secondary to prolonged wait time of CT read Patient CBC was reviewed and showed a white blood count of 11,000, hemoglobin 14.4 platelet count was noted be 189. Patient INR normal at 0.9, PT 12.1. Patient sodium was 131, potassium normal 4.1 creatinine was normal at 0.92. Patient lactic acid was normal at 2 AST and ALT are 33 and 29 respectively. Patient urinalysis showed thousand glucose 250 occult blood 500 leukocyte esterase 0-5 white cells and 3+ bacteria. Patient's CT abdomen pelvis with IV contrast was reviewed which showed colostomy with additional herniation of bowel but no obstruction. Right renal scarring with no obstructing stone. Cystic changes of the right adnexa which could represent a prominent cyst or follicle overall no bowel obstruction or abscess. Patient's previous micro urine culture was reviewed and back in October of this year she had multiple organisms grow out however the colony forming units were noted to be low indicating not a positive culture result. Patient's patient's culture from 09/09/2024 was also reviewed which once again revealed a not positive culture with less than 100,000 colony-forming units as well. Discussed results with the patient and she would like to go home this point time. I did swap out her suprapubic catheter with a 16 [place]i nonlatex suprapubic catheter that she already had in. She tolerated this well and no complications. Patient was concerned prior to discharge that the suprapubic was not draining appropriately as there is no urine in the Morales bag I advised her that there is likely the case secondary to her not having any urine as there was a ton of urine in her old suprapubic and Morales bag however she was bladder scanned and there were 17 mL noted in the Morales bag. She is vies follow-up with her doctor in follow-up on urine culture here she will be given a prescription for Levaquin. She is agreeable this plan all question concerns answered she is discharged home in stable condition Lab Data Labs: Laboratory Results - last 24 hr 03/08/25 03/08/25 19:20 19:36 WBC 11.8 H RBC 4.58 Hgb 14.4 Hct 40.8 MCV 89.1 MCH 31.4 MCHC 35.3 RDW Std Deviation 43.2 RDW Coeff of Claude 13.2 Plt Count 189 MPV 10.4 Immature Gran % (Auto) 0.700 Neut % (Auto) 50.2 Lymph % (Auto) 37.6 [place] % (Auto) 10.1 H Eos % (Auto) 1.1 Baso % (Auto) 0.3 Absolute Neuts (auto) 5.9 Absolute Lymphs (auto) 4.42 Nucleated RBC % 0 PT 12.1 INR 0.9 APTT 24.3 Sodium 131 L Potassium 4.1 Chloride 96 L Carbon Dioxide 23.1 Anion Gap 12 BUN 16 Creatinine 0.92 Estim Creat Clear Calc 86.43 Est GFR (MDRD) Non-Af 79 BUN/Creatinine Ratio 17.1 Glucose 402 H Lactic Acid 2.0 Calcium 10.0 Total Bilirubin 0.38 AST 33 H ALT 29 Alkaline Phosphatase 77 Total Protein 7.8 Albumin 4.1 Globulin 3.7 Albumin/Globulin Ratio 1.1 Urine Color Straw Urine Clarity Sl. Cloudy Urine pH 8.0 Ur Specific [place] 1.015 Urine Protein 100 H Urine Glucose (UA) 1000 H Urine Ketones Negative Urine Occult Blood 250 H Urine Nitrite Negative Urine Bilirubin Negative Urine Urobilinogen Normal Ur Leukocyte Esterase 500 H Urine RBC 0-5 SEEN Urine WBC 0-5 SEEN Ur Squamous Epith Cells 0 SEEN Amorphous Sediment 1+ Urine Bacteria 3+ Urine Mucus 0 SEEN Radiography Diagnostic Testing: Clinical Impression(s) from Imaging Studies Abdomen/Pelvis CT 03/08/25 19:21 IMPRESSION: Colostomy on the left with additional herniation of bowel but no obstruction. Right renal scarring with nonobstructing stone. Cystic changes right adnexa which could represent a prominent cyst or follicle. Overall, no bowel obstruction or abscess Reading [facility] Discharge Plan Triage Chief Complaint: Flank Pain ED Provider: Andre Sue Dx/Rx/DC Orders Clinical Impression: Chronic suprapubic catheter, Spina bifida, Colostomy in place Prescriptions: New levofloxacin 500 mg tablet 500 mg PO DAILY 5 Days Qty: 5 0RF No Action atorvastatin 80 mg tablet 80 mg PO DAILY Patient Comments: Take 1 tablet by mouth once daily. (DME) pen needle, diabetic [BD Ultra-Fine Hope Pen Needle] 32 gauge x 5/32 needle See Rx Instructions .ROUTE .MEDSUPPLY Qty: 400 6RF Rx Instructions: 4x/day (DME) pen needle, diabetic [BD Ultra-Fine Hope Pen Needle] 32 gauge x 5/32 needle See Rx Instructions .ROUTE .MEDSUPPLY Qty: 350 1RF Rx Instructions: 4 times daily furosemide 20 MG tablet 20 mg PO 2200 Rx Instructions: 20 mg in the evening furosemide 40 MG tablet 40 mg PO BREAKFAST oxybutynin chloride 15 mg tablet extended release 24hr 15 mg PO DAILY acetaminophen 500 MG tablet 1,000 mg PO TID PRN PRN (Reason: Pain Or Fever) trazodone 100 mg tablet 100 mg PO QHS Patient Comments: Take 1 tablet by mouth daily at bedtime. lisinopril 5 mg tablet 2.5 mg PO DAILY Qty: 90 3RF Rx Instructions: Hold for SBP less than 130 mmHg ondansetron 4 mg tablet,disintegrating 4 mg PO Q8H PRN PRN (Reason: Nausea) Qty: 20 0RF promethazine 25 mg tablet 25 mg PO TID PRN (Reason: nausea and vomiting) Qty: 20 0RF divalproex 500 mg tablet,delayed release (DR/EC) 500 mg PO QHS omeprazole 20 mg capsule,delayed release(DR/EC) 20 mg PO DAILY cholecalciferol (vitamin D3) 125 mcg (5,000 unit) Capsule 125 mcg PO DAILY Qty: 0 0RF enoxaparin 40 mg/0.4 mL Syringe 40 mg subcut BID Qty: 0 0RF insulin lispro [Humalog KwikPen Insulin] 100 unit/mL Insulin Pen 12 unit subcut TIDCM Qty: 0 0RF insulin lispro [Humalog KwikPen Insulin] 100 unit/mL Insulin Pen See Protocol subcut TIDCM Qty: 0 0RF Protocol: 3. Sliding Scale Insulin Med Dosing Condition: 150-189 mg/dl = 1 unit Condition: 190-229 mg/dl = 2 units Condition: 230-269 mg/dl = 3 units Condition: 270-309 mg/dl = 4 units Condition: 310-349 mg/dl = 5 units Condition: 350-399 mg/dl = 6 units Condition: 400-449 mg/dl = 7 units Condition: Greater than 449 call physician Protocol Text: Suggested for: - Patients on Total Daily Insulin Dose of 37-55 units - Obese, infected, or steroid patients MEDIUM DOSING ALGORITHIM insulin glargine-yfgn 100 unit/mL (3 mL) Insulin Pen 30 unit subcut QHS Qty: 1 0RF metronidazole 500 mg Tablet 500 mg PO TID Qty: 22 0RF Rx Instructions: Give 22 doses starting the evening of 08/16/2024 linezolid 600 mg Tablet 600 mg PO BID Qty: 0 0RF Rx Instructions: Give 15 doses starting the evening of 08/16/2024 oxycodone 5 mg Tablet 5 mg PO Q4H PRN PRN (Reason: Pain Score 1-10) 3 Days Qty: 10 0RF pregabalin 75 mg Capsule 75 mg PO BID Qty: 6 0RF propranolol 20 mg tablet 20 mg PO BID loratadine [Allergy Relief (loratadine)] 10 mg tablet 10 mg PO DAILY nitrofurantoin monohyd/m-cryst 100 mg capsule 100 mg PO Q12 Qty: 14 0RF Primary Care Provider: Will Shukla Referrals: Will Shukla MD [Primary Care Provider, Family Practice] Activity Restrictions/Additional Instructions: Take antibiotics as prescribed. Follow-up your doctor in outpatient setting and follow-up on urine culture. Return with worsening symptoms or any other concerns. Print Language: [place] Islander Disposition Disposition: Home, Self Care
[2025-03-08 19:46] LABS: Color, Urine Straw (Yellow); Glucose, Dipstick 1000 mg/dl (Normal); Ketone-Dipstick Negative (Negative); Leukocyte Esterase-Dipstick 500 /ul (Negative); Nitrite-Dipstick Negative (Negative); Occult Blood-Urine 250 /ul (Negative); Protein-Dipstick 100 mg/dl (Negative); Specific Gravity, Urine 1.015 (1.002-1.030); Urine Bilirubin Dipstick Negative (Negative)
[2025-03-08 19:49] LABS: Hematocrit 40.8 % (37-47); Hemoglobin 14.4 g/dL (12.0-15.0); Immature Granulocytes Count 0.080 X10^3/uL (0.0-0.0); Mean Corp Hgb Conc 35.3 g/dL (32-36); Mean Corpuscular Volume 89.1 fL (81-99); Mean Platelet Vol. 10.4 fl (6.2-12.0); NRBC Flagged by Analyzer 0 % (0-5); Platelet Count 189 K/mm3 (150-450); RBC Distribution Width CV 13.2 % (11.6-14.6); RBC Distribution Width SD 43.2 fl (35.1-43.9); Red Blood Count 4.58 M/mm3 (4.2-5.4); White Blood Count 11.8 K/mm3 (4.4-11.0)
[2025-03-08] MEDS: 0.9% Normal Saline (1000mL) 1,000 ML 999 ML IV (19:53)
[2025-03-08] MEDS: Meropenem 2 GM in 0.9% Normal Saline (100mL Bag) 100 ML IV (19:54)
[2025-03-08 20:00] VITALS: BP 109/69; PULSE 69; RESP 16; TEMP 36.6; O2SAT 98; BMI 42.4
[2025-03-08 20:01] LABS: Prothrombin Time (Protime)PT. 12.1 SECONDS (11.7-14.9)
[2025-03-08 20:02] LABS: Red Blood Cells-Urine 0-5 SEEN /hpf (0-5)
[2025-03-08 20:02] LABS: Partial Thromboplast Time 24.3 Seconds (24.1-36.2)
[2025-03-08 20:14] LABS: AST(SGOT) 33 U/L (<=31); Alanine Aminotransfer ALT/SGPT 29 U/L (<=34); Albumin, Serum 4.1 g/dL (3.5-5.0); Alkaline Phosphatase 77 U/L (35-104); Anion Gap 12 (5-15); BUN 16 mg/dL (4-19); BUN/Creat Ratio 17.1 RATIO (10-20); Calcium,Total 10.0 mg/dL (7.6-11.0); Carbon Dioxide 23.1 mmol/L (21.0-32.0); Chloride 96 mmol/L (98-108); Estimated Creatinine Clearance 86.43 ml/min (50-250); Globulin 3.7 g/dL (2.2-4.2); Glucose 402 mg/dL (70-99); Potassium 4.1 mmol/L (3.3-5.1)
[2025-03-08 21:00] VITALS: BP 124/86; PULSE 70; RESP 16; TEMP 36.7; O2SAT 99
[2025-03-08] MEDS: Ketorolac 30 MG/ML Syringe IV (21:40)
[2025-03-08 22:00] VITALS: BP 134/78; PULSE 71; RESP 16; TEMP 36.6; O2SAT 98
[2025-03-08 23:00] VITALS: BP 123/74; PULSE 68; RESP 18; TEMP 36.7; O2SAT 97
[2025-03-08 23:43] LABS: Reflex Lactate? Y
[2025-03-09] VITALS: BP 159/62; PULSE 62; RESP 18; TEMP 36.6; O2SAT 97
[2025-03-09 00:02] VITALS: BP 159/62; PULSE 62; RESP 18; TEMP 36.6; O2SAT 97
== END 2025-03-09 00:30 | disposition home or self-care (01) ==
PROVIDERS: Emergency Provider Emergency Medicine; PCP Family Medicine; Visit Provider Emergency Medicine
DX: R10.A0 Flank pain, unspecified side (principal); Z93.3 Colostomy status; Q05.9 Spina bifida, unspecified; E11.22 Type 2 diabetes mellitus with diabetic chronic kidney disease; E11.42 Type 2 diabetes mellitus with diabetic polyneuropathy; I12.9 Hypertensive chronic kidney disease with stage 1 through stage 4 chronic kidney disease, or unspecified chronic kidney disease; M54.9 Dorsalgia, unspecified; E78.5 Hyperlipidemia, unspecified; N18.9 Chronic kidney disease, unspecified; Z98.84 Bariatric surgery status; Z90.49 Acquired absence of other specified parts of digestive tract
CPT/HCPCS: 74177; 80053; 81001; 83605; 85025; 85610; 85730; 87040; 87086; 87088; 87186; 93005; 96361; 96365; 96366; 96375; 99285; J2185; Q9967; A4216; J2405

== ENCOUNTER 2025-03-09 02:50 | Emergency (ER) | payer MEDICARE, MEDICAID, SELFPAY ==
[2025-03-09 02:51] VITALS: BP 130/76; PULSE 84; RESP 18; TEMP 36.6; O2SAT 98; BMI 42.8
--- NOTE | 2025-03-09 03:58 | RAD_ITS ---
PROCEDURE: ABDOMEN SINGLE VIEW (PORTABLE) 03/09/2025 REASON FOR EXAM: ABDOMINAL PAIN/CONFIRM SUPRAPUBIC CATHETER PLACE TECHNIQUE: Procedure Code: RADABD_P Modality: DX Procedure: ABDOMEN SINGLE VIEW (PORTABLE) COMPARISON: CT scan on 03/08/2025. FINDINGS: Suprapubic catheter is noted with its tip at the level of the urethra. It needs to be retrieved 4 cm. There is an unremarkable bowel gas pattern. There is no demonstrated free abdominal air. Normal visualized liver. Normal visualized spleen. Normal visualized kidneys. The soft tissue structures of the pelvis are unremarkable. Diffuse spondylosis. Surgical changes of the lower anterior abdominal wall. RAD/Abdomen Single View (Portable) IMPRESSION: Suprapubic catheter is noted with its tip at the level of the urethra. It needs to be retrieved 4 cm. Contrast was injected through the catheter outlining of the bladder and the ure thra without contrast leakage. Reading [facility]
--- NOTE | 2025-03-09 04:00 | EX.ED.DYSGE1 ---
HPI History of Present Illness Chief Complaint: Morales C/O Informant: patient Narrative Narrative: Patient is a 44-year-old female with past medical history of spina bifida and chronic indwelling suprapubic catheter. She was seen earlier this evening and at that time had laboratory studies and a urine sample and a CT scan of the abdomen and pelvis. Workup revealed no clinically significant findings. She had her suprapubic catheter replaced as it was not draining. Patient states that there was no inadvertent tugging or manipulation of the suprapubic catheter once she was discharged however she has been having increasing pain in the lower abdomen/pelvic region and she states there has been no drainage from her catheter. The patient states that the last time she had symptoms like this it was because the catheter was threaded too far and was no longer in the bladder. Therefore with concern for catheter dysfunction she presents for evaluation [facility] Medical History Multiple drug resistant organism (MDRO) culture positive Non-pressure chronic ulcer of other part of left foot with necrosis of muscle Cutaneous abscess of left foot Fever Abscess of left heel Morbid obesity with BMI of 40.0-44.9, adult Therapy failure due to antibiotic resistance Leukocytosis Cellulitis of left leg Cellulitis of foot, left Type 2 diabetes mellitus with foot ulcer Suprapubic catheter Noncompliance with diabetes treatment Diabetes mellitus with diabetic polyneuropathy Depression Open wound of left foot Microalbuminuria CKD (chronic kidney disease) 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 Diabetic polyneuropathy Non-smoker Weakness Hyperglycemia Sepsis Urinary tract infection Diabetic foot infection Urinary tract infection Thyroid cyst Hematochezia Chronic nausea Insomnia PSVT (paroxysmal supraventricular tachycardia) Panic attacks Hyperlipidemia Lipomeningocele History of kidney stones Essential hypertension Dysthymic disorder DJD (degenerative joint disease) of thoracic spine Arthritis Anxiety and depression Uninodular goiter Non-compliance UTI (urinary tract infection) Cellulitis of left lower extremity Infection of bladder catheter Ulcer of left heel and midfoot with fat layer exposed Lower extremity edema Delayed wound healing Type 2 diabetes mellitus with diabetic polyneuropathy Diabetic ulcer of left heel with fat layer exposed Normochromic normocytic anemia Constipation Neurogenic bowel Neurogenic bladder Hydronephrosis of right kidney UTI (urinary tract infection) Diabetes mellitus, type II Morbid obesity with BMI of 40.0-44.9, adult Spina bifida aperta of lumbar spine History of migraine Chronic back pain Home Medications ?Medication ?Instructions ?Recorded ?Last Taken ?Type furosemide 20 mg tablet 20 mg PO 2200 fluid 08/28/18 08/10/24 History furosemide 40 mg tablet 40 mg PO BREAKFAST fluid 04/05/19 08/10/24 History oxybutynin chloride 15 mg 15 mg PO DAILY bladder 11/12/19 08/10/24 History tablet,extended release 24 hr acetaminophen 500 mg tablet 1,000 mg PO TID PRN PRN Pain Or 02/12/20 08/11/24 History Fever trazodone 100 mg tablet 100 mg PO QHS sleep 01/19/21 08/10/24 History atorvastatin 80 mg tablet 80 mg PO DAILY cholesterol 01/29/21 08/10/24 History pen needle, diabetic 32 gauge x #400 ea 03/05/21 Unknown Rx 5/32 (BD Ultra-Fine Hope Pen Needle) lisinopril 5 mg tablet 2.5 mg (1/2 x 5 mg) PO DAILY #90 01/21/22 08/10/24 Rx tabs pen needle, diabetic 32 gauge x #350 ea 09/01/22 Unknown Rx 5/32 (BD Ultra-Fine Hope Pen Needle) loratadine 10 mg tablet (Allergy 10 mg PO DAILY Antigistamine 11/07/23 08/10/24 History Relief (loratadine)) propranolol 20 mg tablet 20 mg PO BID Beta Pan 11/07/23 08/10/24 History ondansetron 4 mg disintegrating 4 mg PO Q8H PRN PRN Nausea #20 tabs 06/09/24 08/11/24 Rx tablet promethazine 25 mg tablet 25 mg PO TID PRN nausea and 07/31/24 08/01/24 Rx vomiting #20 tabs divalproex 500 mg tablet,delayed 500 mg PO QHS Migraine Headaches 08/11/24 08/10/24 History release omeprazole 20 mg capsule,delayed 20 mg PO DAILY PPI 08/11/24 08/10/24 History release cholecalciferol (vitamin D3) 125 125 mcg PO DAILY #0 caps 08/16/24 Unknown Rx mcg (5,000 unit) capsule enoxaparin 40 mg/0.4 mL 40 mg (0.4 mL) subcut BID #0 mL 08/16/24 Unknown Rx subcutaneous syringe insulin glargine-yfgn 100 unit/mL 30 unit (0.3 mL) subcut QHS #1 mL 08/16/24 Unknown Rx (3 mL) subcutaneous pen insulin lispro 100 unit/mL 12 unit (0.12 mL) subcut TIDCM #0 08/16/24 Unknown Rx subcutaneous pen (Humalog KwikPen mL (U-100) Insulin) insulin lispro 100 unit/mL See Protocol subcut TIDCM #0 mL 08/16/24 Unknown Rx subcutaneous pen (Humalog KwikPen (U-100) Insulin) linezolid 600 mg tablet 600 mg PO BID #0 tabs 08/16/24 Unknown Rx metronidazole 500 mg tablet 500 mg PO TID #22 tabs 08/16/24 Unknown Rx oxycodone 5 mg tablet 5 mg PO Q4H PRN PRN Pain Score 08/16/24 Unknown Rx 1-10 3 days #10 tabs pregabalin 75 mg capsule 75 mg PO BID #6 caps 08/16/24 Unknown Rx nitrofurantoin 100 mg PO Q12 #14 CAPSULES 11/20/24 Unknown Rx monohydrate/macrocrystals 100 mg capsule levofloxacin 500 mg tablet 500 mg PO DAILY 5 days #5 tabs 03/09/25 Unknown Rx Allergy/AdvReac Type Severity Reaction Status Date / Time Cephalosporins Allergy Severe Anaphylaxis Verified 03/09/25 02:51 piperacillin (From Zosyn) Allergy Intermediate Hives Verified 03/09/25 02:51 ceftriaxone (From Rocephin) Allergy Anaphylaxis Verified 03/09/25 02:51 mushroom Allergy Anaphylaxis Verified 03/09/25 02:51 peanut Allergy Anaphylaxis Verified 03/09/25 02:51 tazobactam (From Zosyn) Allergy NEEDS Verified 03/09/25 02:51 FOLLOW-UP fentanyl AdvReac Low blood Verified 03/09/25 02:51 pressure gabapentin AdvReac Other Verified 03/09/25 02:51 Gadolinium-MRI Contrast AdvReac Vomiting Verified 03/09/25 02:51 Medium Latex, Natural Rubber AdvReac Rash Verified 03/09/25 02:51 vancomycin AdvReac Rash Verified 03/09/25 02:51 Family History Mother CVA (cerebral vascular accident) Thyroid disorder Diabetes Hypertension Heart disease Hyperlipidemia Myocardial infarction, Onset Age: 54 mother had diabetes Father Cancer skin Grandmother Cancer liver Other Arthritis Skin cancer Surgical History S/P colostomy S/P thyroid biopsy (~11/06/19) history insertion suprapubic catheter Status post gastric surgery Hx of foot surgery Hx of ventral hernia repair History of spinal surgery History of cholecystectomy History of dilation and curettage Social History (Updated 03/08/25 @ 20:01 by Denise Busby) household members: significant other housing: house Smoking Status: Never smoker alcohol intake: current substance use type: does not use ROS ROS ED Constitutional Constitutional ED: Denies chills or fever(s) ENT ENT ED: Denies sore throat Cardiovascular Cardiovascular: Denies chest pain Respiratory/Chest Respiratory/Chest: Denies cough or dyspnea Gastrointestinal Gastrointestinal: Reports abdominal pain; Denies nausea or vomiting Genitourinary Genitourinary ED: Reports hematuria Musculoskeletal Musculoskeletal: Denies back pain Integumentary Denies rash Neurologic Neurologic: Denies headache(s) EXAM Physical Exam Const Vital Signs: 03/09/25 02:51 03/09/25 04:16 Temperature 97.9 F 98.2 F Temperature Source Oral Pulse Rate 84 76 Respiratory Rate 18 18 Blood Pressure 130/76 H 144/77 H Blood Pressure Mean 94 99 Pulse Ox 98 99 Oxygen Delivery Method Room Air Positive well nourished, well developed and obese General Appearance ED: well developed; Negative for pallor Nutritional Appearance: obese HEENT HEENT Narrative: Normocephalic atraumatic Eyes PERRL and EOMs intact bilaterally General Eye ED: Negative for scleral icterus Neck supple Resp normal respiratory effort and clear to auscultation bilaterally Cardio regular rate and regular rhythm GI non-distended and no masses GI Narrative: Abdomen is soft and nondistended with normal active bowel sounds. There is a colostomy in place draining soft brown stool. Patient reports pain with palpation in the lower midline abdomen/suprapubic region but there is no organomegaly to suggest urinary bladder distention. There is a suprapubic catheter in place however there is no drainage into the catheter and at the insertion site there is no surrounding redness warmth or discharge to suggest infection but it does appear to be leakage of urine around the insertion site. Auscultation: normoactive bowel sounds Palpation: soft Extremity normal to inspection Neuro oriented x3 and CN's II-XII intact bilaterally Sensorium / Orientation: alert Psych mental status grossly normal Skin General Skin Exam: Negative for jaundice or pallor MDM MDM MDM Narrative Medical decision making narrative: Patient arrived to the ER with stable vitals. She reported increasing pain in the lower abdomen/pelvic region and no drainage from the suprapubic catheter. Her previous ER visit from a few hours ago was reviewed. She had stable H&H normal kidney function and CT scan documented the catheter to be in the proper position within the bladder. The patient however inform me that the CT scan was done with her prior catheter in place not the new/replaced one. As there is concern that there may be sediment blocking the catheter we did attempt to manually irrigate the catheter. Upon doing this the irrigation fluid came out through the vagina indicating that the catheter was most likely thread too far. Therefore a KUB of Gastrografin was performed and this showed no sign of extravasation going against bladder rupture but I did confirm that the tip of the suprapubic catheter was not in the bladder but in the urethra which would also explain the patient's lower abdominal/pelvic pain. Therefore the balloon was deflated and the catheter was retracted approximately 4 cm. At this time there was return of clear yellow urine through the catheter tubing and the patient reported improvement of her discomfort. We flushed the catheter once again and it flushed and kandace easily without any extravasation through the vagina indicating the catheter is in the proper position. Therefore with return of the suprapubic catheter to a normal position functioning within the bladder she is otherwise safe for discharge History & Record Review Discussion w/independent historian: Patient Additional record(s) reviewed:: Prior ED visit Radiography Diagnostic Testing: Clinical Impression(s) from Imaging Studies KUB X-Ray 03/09/25 03:58 IMPRESSION: Suprapubic catheter is noted with its tip at the level of the urethra. It needs to be retrieved 4 cm. Contrast was injected through the catheter outlining of the bladder and the urethra without contrast leakage. Reading [facility] [id number] KUB as interpreted by the emergency medicine physician reveals no extravasation going against bladder perforation/rupture but it does document the tip of the suprapubic catheter is within the urethra Discharge Plan Triage Chief Complaint: Morales C/O ED Provider: Alexander Hooks Dx/Rx/DC Orders Clinical Impression: Suprapubic catheter dysfunction, Diabetes mellitus type 2, insulin dependent, Spina bifida Instructions: Suprapubic Catheter Dc Prescriptions: No Action atorvastatin 80 mg tablet 80 mg PO DAILY Patient Comments: Take 1 tablet by mouth once daily. (DME) pen needle, diabetic [BD Ultra-Fine Hope Pen Needle] 32 gauge x 5/32 needle See Rx Instructions .ROUTE .MEDSUPPLY Qty: 400 6RF Rx Instructions: 4x/day (DME) pen needle, diabetic [BD Ultra-Fine Hope Pen Needle] 32 gauge x 5/32 needle See Rx Instructions .ROUTE .MEDSUPPLY Qty: 350 1RF Rx Instructions: 4 times daily furosemide 20 MG tablet 20 mg PO 2200 Rx Instructions: 20 mg in the evening furosemide 40 MG tablet 40 mg PO BREAKFAST oxybutynin chloride 15 mg tablet extended release 24hr 15 mg PO DAILY acetaminophen 500 MG tablet 1,000 mg PO TID PRN PRN (Reason: Pain Or Fever) trazodone 100 mg tablet 100 mg PO QHS Patient Comments: Take 1 tablet by mouth daily at bedtime. lisinopril 5 mg tablet 2.5 mg PO DAILY Qty: 90 3RF Rx Instructions: Hold for SBP less than 130 mmHg ondansetron 4 mg tablet,disintegrating 4 mg PO Q8H PRN PRN (Reason: Nausea) Qty: 20 0RF promethazine 25 mg tablet 25 mg PO TID PRN (Reason: nausea and vomiting) Qty: 20 0RF divalproex 500 mg tablet,delayed release (DR/EC) 500 mg PO QHS omeprazole 20 mg capsule,delayed release(DR/EC) 20 mg PO DAILY cholecalciferol (vitamin D3) 125 mcg (5,000 unit) Capsule 125 mcg PO DAILY Qty: 0 0RF enoxaparin 40 mg/0.4 mL Syringe 40 mg subcut BID Qty: 0 0RF insulin lispro [Humalog KwikPen Insulin] 100 unit/mL Insulin Pen 12 unit subcut TIDCM Qty: 0 0RF insulin lispro [Humalog KwikPen Insulin] 100 unit/mL Insulin Pen See Protocol subcut TIDCM Qty: 0 0RF Protocol: 3. Sliding Scale Insulin Med Dosing Condition: 150-189 mg/dl = 1 unit Condition: 190-229 mg/dl = 2 units Condition: 230-269 mg/dl = 3 units Condition: 270-309 mg/dl = 4 units Condition: 310-349 mg/dl = 5 units Condition: 350-399 mg/dl = 6 units Condition: 400-449 mg/dl = 7 units Condition: Greater than 449 call physician Protocol Text: Suggested for: - Patients on Total Daily Insulin Dose of 37-55 units - Obese, infected, or steroid patients MEDIUM DOSING ALGORITHIM insulin glargine-yfgn 100 unit/mL (3 mL) Insulin Pen 30 unit subcut QHS Qty: 1 0RF metronidazole 500 mg Tablet 500 mg PO TID Qty: 22 0RF Rx Instructions: Give 22 doses starting the evening of 08/16/2024 linezolid 600 mg Tablet 600 mg PO BID Qty: 0 0RF Rx Instructions: Give 15 doses starting the evening of 08/16/2024 oxycodone 5 mg Tablet 5 mg PO Q4H PRN PRN (Reason: Pain Score 1-10) 3 Days Qty: 10 0RF pregabalin 75 mg Capsule 75 mg PO BID Qty: 6 0RF levofloxacin 500 mg tablet 500 mg PO DAILY 5 Days Qty: 5 0RF propranolol 20 mg tablet 20 mg PO BID loratadine [Allergy Relief (loratadine)] 10 mg tablet 10 mg PO DAILY nitrofurantoin monohyd/m-cryst 100 mg capsule 100 mg PO Q12 Qty: 14 0RF Primary Care Provider: Will Shukla Referrals: Will Shukla MD [Primary Care Provider, Family Practice] Activity Restrictions/Additional Instructions: The x-ray of your abdomen showed that your suprapubic catheter had previously been thread too far and was in the urethra which was why it was causing pain and not draining the bladder. There are no findings of bladder perforation/rupture. At this time the catheter was retracted and is now sitting within the bladder indicating by the fact you have draining urine. Please follow-up with your urologist and/or family doctor for repeat evaluation and return to the ER should you have any further concerns Print Language: Indian Disposition Disposition: Home, Self Care Discharge Date/Time: 03/09/25 04:21
[2025-03-09 04:16] VITALS: BP 144/77; PULSE 76; RESP 18; TEMP 36.8; O2SAT 99
== END 2025-03-09 04:21 | disposition home or self-care (01) ==
PROVIDERS: Emergency Provider Emergency Medicine; PCP Family Medicine; Visit Provider Emergency Medicine
DX: T83.018A Breakdown (mechanical) of other urinary catheter, initial encounter (principal); Q05.9 Spina bifida, unspecified; E11.22 Type 2 diabetes mellitus with diabetic chronic kidney disease; Z79.4 Long term (current) use of insulin; E11.42 Type 2 diabetes mellitus with diabetic polyneuropathy; E78.5 Hyperlipidemia, unspecified; I12.9 Hypertensive chronic kidney disease with stage 1 through stage 4 chronic kidney disease, or unspecified chronic kidney disease; M54.9 Dorsalgia, unspecified; N18.9 Chronic kidney disease, unspecified; E66.9 Obesity, unspecified; R10.9 Unspecified abdominal pain; R31.9 Hematuria, unspecified; Z90.49 Acquired absence of other specified parts of digestive tract; Z98.84 Bariatric surgery status
CPT/HCPCS: 74018; 99283

== ENCOUNTER 2025-04-05 11:53 | Emergency (ER) | payer MEDICARE, MEDICAID, SELFPAY ==
[2025-04-05 11:54] VITALS: BP 156/125; PULSE 80; RESP 18; TEMP 36.6; O2SAT 99
[2025-04-05 12:36] VITALS: BP 124/75; PULSE 75
--- NOTE | 2025-04-05 12:55 | ED.VIS.LOWEX ---
HPI History of Present Illness Chief Complaint: Lower Extremity Injury Informant: patient and spouse/S.O. Narrative Narrative: 44-year-old female presenting to the emergency room with nausea and fatigue/lightheadedness as well as left leg swelling. Patient states that after getting back to the exam room she took off her sock and noticed that she has a wound near the anterior ankle joint on the left. She notes some redness. She states she is a diabetic and sees Dr. Gonzalez for diabetic foot care. She states that it is not uncommon for her leg to swell when she gets infections and wonders if this wound is infected. She states that prior to taking off her socks she did not know she had a wound there. [facility] Medical History Multiple drug resistant organism (MDRO) culture positive Non-pressure chronic ulcer of other part of left foot with necrosis of muscle Cutaneous abscess of left foot Fever Abscess of left heel Morbid obesity with BMI of 40.0-44.9, adult Therapy failure due to antibiotic resistance Leukocytosis Cellulitis of left leg Cellulitis of foot, left Type 2 diabetes mellitus with foot ulcer Suprapubic catheter Noncompliance with diabetes treatment Diabetes mellitus with diabetic polyneuropathy Depression Open wound of left foot Microalbuminuria CKD (chronic kidney disease) 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 Diabetic polyneuropathy Non-smoker Weakness Hyperglycemia Sepsis Urinary tract infection Diabetic foot infection Urinary tract infection Thyroid cyst Hematochezia Chronic nausea Insomnia PSVT (paroxysmal supraventricular tachycardia) Panic attacks Hyperlipidemia Lipomeningocele History of kidney stones Essential hypertension Dysthymic disorder DJD (degenerative joint disease) of thoracic spine Arthritis Anxiety and depression Uninodular goiter Non-compliance UTI (urinary tract infection) Cellulitis of left lower extremity Infection of bladder catheter Ulcer of left heel and midfoot with fat layer exposed Lower extremity edema Delayed wound healing Type 2 diabetes mellitus with diabetic polyneuropathy Diabetic ulcer of left heel with fat layer exposed Normochromic normocytic anemia Constipation Neurogenic bowel Neurogenic bladder Hydronephrosis of right kidney UTI (urinary tract infection) Diabetes mellitus, type II Morbid obesity with BMI of 40.0-44.9, adult Spina bifida aperta of lumbar spine History of migraine Chronic back pain Home Medications Medication Instructions Recorded Last Taken Type furosemide 20 mg tablet 20 mg PO 2200 fluid 08/28/18 08/10/24 History furosemide 40 mg tablet 40 mg PO BREAKFAST fluid 04/05/19 08/10/24 History oxybutynin chloride 15 mg 15 mg PO DAILY bladder 11/12/19 08/10/24 History tablet,extended release 24 hr acetaminophen 500 mg tablet 1,000 mg PO TID PRN PRN Pain Or 02/12/20 08/11/24 History Fever trazodone 100 mg tablet 100 mg PO QHS sleep 01/19/21 08/10/24 History atorvastatin 80 mg tablet 80 mg PO DAILY cholesterol 01/29/21 08/10/24 History pen needle, diabetic 32 gauge x #400 ea 03/05/21 Unknown Rx 5/32" (BD Ultra-Fine Hope Pen Needle) lisinopril 5 mg tablet 2.5 mg (1/2 x 5 mg) PO DAILY #90 01/21/22 08/10/24 Rx tabs pen needle, diabetic 32 gauge x #350 ea 09/01/22 Unknown Rx 5/32" (BD Ultra-Fine Hope Pen Needle) loratadine 10 mg tablet (Allergy 10 mg PO DAILY Antigistamine 11/07/23 08/10/24 History Relief (loratadine)) propranolol 20 mg tablet 20 mg PO BID Beta Pan 11/07/23 08/10/24 History ondansetron 4 mg disintegrating 4 mg PO Q8H PRN PRN Nausea #20 tabs 06/09/24 08/11/24 Rx tablet promethazine 25 mg tablet 25 mg PO TID PRN nausea and 07/31/24 08/01/24 Rx vomiting #20 tabs divalproex 500 mg tablet,delayed 500 mg PO QHS Migraine Headaches 08/11/24 08/10/24 History release omeprazole 20 mg capsule,delayed 20 mg PO DAILY PPI 08/11/24 08/10/24 History release cholecalciferol (vitamin D3) 125 125 mcg PO DAILY #0 caps 08/16/24 Unknown Rx mcg (5,000 unit) capsule enoxaparin 40 mg/0.4 mL 40 mg (0.4 mL) subcut BID #0 mL 08/16/24 Unknown Rx subcutaneous syringe insulin glargine-yfgn 100 unit/mL 30 unit (0.3 mL) subcut QHS #1 mL 08/16/24 Unknown Rx (3 mL) subcutaneous pen insulin lispro 100 unit/mL 12 unit (0.12 mL) subcut TIDCM #0 08/16/24 Unknown Rx subcutaneous pen (Humalog KwikPen mL (U-100) Insulin) insulin lispro 100 unit/mL See Protocol subcut TIDCM #0 mL 08/16/24 Unknown Rx subcutaneous pen (Humalog KwikPen (U-100) Insulin) linezolid 600 mg tablet 600 mg PO BID #0 tabs 08/16/24 Unknown Rx metronidazole 500 mg tablet 500 mg PO TID #22 tabs 08/16/24 Unknown Rx oxycodone 5 mg tablet 5 mg PO Q4H PRN PRN Pain Score 08/16/24 Unknown Rx 1-10 3 days #10 tabs pregabalin 75 mg capsule 75 mg PO BID #6 caps 08/16/24 Unknown Rx nitrofurantoin 100 mg PO Q12 #14 CAPSULES 11/20/24 Unknown Rx monohydrate/macrocrystals 100 mg capsule levofloxacin 500 mg tablet 500 mg PO DAILY 5 days #5 tabs 03/09/25 Unknown Rx ciprofloxacin HCl 500 mg tablet 500 mg PO BID #14 TABLETS 04/05/25 Unknown Rx sulfamethoxazole 800 1 tab PO BID #14 TABLETS 04/05/25 Unknown Rx mg-trimethoprim 160 mg tablet Allergy/AdvReac Type Severity Reaction Status Date / Time Cephalosporins Allergy Severe Anaphylaxis Verified 04/05/25 11:57 piperacillin (From Zosyn) Allergy Intermediate Hives Verified 04/05/25 11:57 ceftriaxone (From Rocephin) Allergy Anaphylaxis Verified 04/05/25 11:57 mushroom Allergy Anaphylaxis Verified 04/05/25 11:57 peanut Allergy Anaphylaxis Verified 04/05/25 11:57 tazobactam (From Zosyn) Allergy NEEDS Verified 04/05/25 11:57 FOLLOW-UP fentanyl AdvReac Low blood Verified 04/05/25 11:57 pressure gabapentin AdvReac Other Verified 04/05/25 11:57 Gadolinium-MRI Contrast AdvReac Vomiting Verified 04/05/25 11:57 Medium Latex, Natural Rubber AdvReac Rash Verified 04/05/25 11:57 vancomycin AdvReac Rash Verified 04/05/25 11:57 Family History Mother CVA (cerebral vascular accident) Thyroid disorder Diabetes Hypertension Heart disease Hyperlipidemia Myocardial infarction, Onset Age: 54 mother had diabetes Father Cancer skin Grandmother Cancer liver Other Arthritis Skin cancer Surgical History S/P colostomy S/P thyroid biopsy (~11/06/19) history insertion suprapubic catheter Status post gastric surgery Hx of foot surgery Hx of ventral hernia repair History of spinal surgery History of cholecystectomy History of dilation and curettage Social History household members: significant other housing: house Smoking Status: Never smoker alcohol intake: current substance use type: does not use ROS ROS ED ROS Narrative Lightheadedness Constitutional Constitutional ED: Denies chills or weight loss Eyes Eyes: Denies change in vision or diplopia ENT ENT ED: Denies ear pain, rhinorrhea or sore throat Cardiovascular Cardiovascular: Denies chest pain, orthopnea, palpitations or racing heartbeat Respiratory/Chest Respiratory/Chest: Denies cough, dyspnea or orthopnea Gastrointestinal Gastrointestinal: Reports nausea; Denies abdominal pain, diarrhea or vomiting Genitourinary Genitourinary ED: Denies dysuria, hematuria or urinary frequency Musculoskeletal Musculoskeletal: Reports other Details: Left leg swelling ; Denies arthralgias or myalgias Integumentary Reports other Details: Left foot wound ; Denies abscess or rash Neurologic Neurologic: Denies headache(s) or weakness Psychiatric Psychiatric: Denies anxiety, depression, suicidal ideation or suicidal thoughts Endocrine Endocrinology: Denies polydipsia, polyphagia or polyuria Allergic/Immunologic Allergic/Immunologic ED: Denies mouth swelling, tongue swelling or urticaria EXAM Physical Exam Const Vital Signs: 04/05/25 11:54 04/05/25 12:36 Temperature 98 F Temperature Source Temporal Pulse Rate 80 75 Respiratory Rate 18 Blood Pressure 156/125 H 124/75 H Blood Pressure Mean 135 91 Pulse Ox 99 Oxygen Delivery Method Room Air Positive well nourished, well developed and obese General Appearance ED: well developed and NAD Nutritional Appearance: obese HEENT Reports normocephalic, head/scalp atraumatic and moist mucous membranes Eyes PERRL and EOMs intact bilaterally Neck no lymphadenopathy, supple and no JVD Resp normal respiratory effort and clear to auscultation bilaterally Cardio regular rate, regular rhythm and no murmurs GI normal to inspection, nondistended, normoactive bowel sounds and non-tender Palpation: soft Back/Spine no CVA tenderness and normal ROM Extremity Extremity Narrative: The bottoms of both feet are almost black from walking around barefoot. Located on the anterior left ankle is a circular crusted wound of about 4 mm diameter with 5 cm x 2 cm of erythema. I do not appreciate lymphangitic streaking. I do not see significant edema or palpable cords. There are prior surgical incisions that are well-healed. General Extremety ED: Negative for edema General Extremity: Negative for edema Neuro oriented x3 and CN's II-XII intact bilaterally Sensorium / Orientation: alert Motor Exam: strength 5/5 throughout Psych mental status grossly normal Mood & Affect: Negative for depressed or tearful Skin no rashes or lesions noted and no wounds MDM MDM MDM Narrative Medical decision making narrative: Differential diagnosis includes but not limited to cellulitis venal thromboembolism diabetic foot infection sepsis Clinically this appears to be a localized wound with early cellulitis. She states that she has done well in the past with Bactrim and Cipro. I think is a reasonable place to start. Patient is not febrile or tachycardic. She clinically appears well. Of asked that she follow-up with her log cutter later this week for repeat examination History & Record Review Discussion w/independent historian: Patient and Family Additional record(s) reviewed:: Prior inpatient record, Prior outpatient record, Prior ED visit and Prior labs Discharge Plan Triage Chief Complaint: Lower Extremity Injury ED Provider: Nemesio Sanderson Dx/Rx/DC Orders Clinical Impression: Diabetic foot infection Instructions: ED Cellulitis Prescriptions: New ciprofloxacin HCl 500 mg tablet 500 mg PO BID Qty: 14 0RF sulfamethoxazole-trimethoprim 800-160 mg tablet 1 tab PO BID Qty: 14 0RF No Action atorvastatin 80 mg tablet 80 mg PO DAILY Patient Comments: Take 1 tablet by mouth once daily. (DME) pen needle, diabetic [BD Ultra-Fine Hope Pen Needle] 32 gauge x 5/32" needle See Rx Instructions .ROUTE .MEDSUPPLY Qty: 400 6RF Rx Instructions: 4x/day (DME) pen needle, diabetic [BD Ultra-Fine Hope Pen Needle] 32 gauge x 5/32" needle See Rx Instructions .ROUTE .MEDSUPPLY Qty: 350 1RF Rx Instructions: 4 times daily furosemide 20 MG tablet 20 mg PO 2200 Rx Instructions: 20 mg in the evening furosemide 40 MG tablet 40 mg PO BREAKFAST oxybutynin chloride 15 mg tablet extended release 24hr 15 mg PO DAILY acetaminophen 500 MG tablet 1,000 mg PO TID PRN PRN (Reason: Pain Or Fever) trazodone 100 mg tablet 100 mg PO QHS Patient Comments: Take 1 tablet by mouth daily at bedtime. lisinopril 5 mg tablet 2.5 mg PO DAILY Qty: 90 3RF Rx Instructions: Hold for SBP less than 130 mmHg ondansetron 4 mg tablet,disintegrating 4 mg PO Q8H PRN PRN (Reason: Nausea) Qty: 20 0RF promethazine 25 mg tablet 25 mg PO TID PRN (Reason: nausea and vomiting) Qty: 20 0RF divalproex 500 mg tablet,delayed release (DR/EC) 500 mg PO QHS omeprazole 20 mg capsule,delayed release(DR/EC) 20 mg PO DAILY cholecalciferol (vitamin D3) 125 mcg (5,000 unit) Capsule 125 mcg PO DAILY Qty: 0 0RF enoxaparin 40 mg/0.4 mL Syringe 40 mg subcut BID Qty: 0 0RF insulin lispro [Humalog KwikPen Insulin] 100 unit/mL Insulin Pen 12 unit subcut TIDCM Qty: 0 0RF insulin lispro [Humalog KwikPen Insulin] 100 unit/mL Insulin Pen See Protocol subcut TIDCM Qty: 0 0RF Protocol: 3. Sliding Scale Insulin Med Dosing Condition: 150-189 mg/dl = 1 unit Condition: 190-229 mg/dl = 2 units Condition: 230-269 mg/dl = 3 units Condition: 270-309 mg/dl = 4 units Condition: 310-349 mg/dl = 5 units Condition: 350-399 mg/dl = 6 units Condition: 400-449 mg/dl = 7 units Condition: Greater than 449 call physician Protocol Text: Suggested for: - Patients on Total Daily Insulin Dose of 37-55 units - Obese, infected, or steroid patients MEDIUM DOSING ALGORITHIM insulin glargine-yfgn 100 unit/mL (3 mL) Insulin Pen 30 unit subcut QHS Qty: 1 0RF metronidazole 500 mg Tablet 500 mg PO TID Qty: 22 0RF Rx Instructions: Give 22 doses starting the evening of 08/16/2024 linezolid 600 mg Tablet 600 mg PO BID Qty: 0 0RF Rx Instructions: Give 15 doses starting the evening of 08/16/2024 oxycodone 5 mg Tablet 5 mg PO Q4H PRN PRN (Reason: Pain Score 1-10) 3 Days Qty: 10 0RF pregabalin 75 mg Capsule 75 mg PO BID Qty: 6 0RF levofloxacin 500 mg tablet 500 mg PO DAILY 5 Days Qty: 5 0RF propranolol 20 mg tablet 20 mg PO BID loratadine [Allergy Relief (loratadine)] 10 mg tablet 10 mg PO DAILY nitrofurantoin monohyd/m-cryst 100 mg capsule 100 mg PO Q12 Qty: 14 0RF Primary Care Provider: Will Shukla Referrals: Will Shukla MD [Primary Care Provider, Family Practice] Garcia Gonzalez DPM [Med Staff - Active Staff, Podiatry] - 3-5 Days if not improving Print Language: Belarusian Disposition Disposition: Home, Self Care Discharge Date/Time: 04/05/25 12:39
== END 2025-04-05 12:39 | disposition home or self-care (01) ==
PROVIDERS: Emergency Provider Emergency Medicine; PCP Family Medicine; Visit Provider Emergency Medicine
DX: E11.628 Type 2 diabetes mellitus with other skin complications (principal); E11.22 Type 2 diabetes mellitus with diabetic chronic kidney disease; E11.42 Type 2 diabetes mellitus with diabetic polyneuropathy; E78.5 Hyperlipidemia, unspecified; I12.9 Hypertensive chronic kidney disease with stage 1 through stage 4 chronic kidney disease, or unspecified chronic kidney disease; N18.9 Chronic kidney disease, unspecified; E66.9 Obesity, unspecified; R11.0 Nausea; Z90.49 Acquired absence of other specified parts of digestive tract; Z98.84 Bariatric surgery status; S91.302A Unspecified open wound, left foot, initial encounter; X58.XXXA Exposure to other specified factors, initial encounter
CPT/HCPCS: 99282

== ENCOUNTER 2025-05-24 19:41 | Emergency (ER) | payer MEDICARE, MEDICAID, SELFPAY ==
[2025-05-24 19:41] VITALS: BP 134/83; PULSE 102; RESP 18; TEMP 37.2; O2SAT 100
--- NOTE | 2025-05-24 19:52 | EDS_ITS ---
HPI History of Present Illness Chief Complaint: Flank Pain [facility] Medical History (Updated 05/25/25 @ 00:[address] 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 Diabetic polyneuropathy Non-smoker Weakness Hyperglycemia Sepsis Urinary tract infection Diabetic foot infection Urinary tract infection Thyroid cyst Hematochezia Chronic nausea Insomnia PSVT (paroxysmal supraventricular tachycardia) Panic attacks Hyperlipidemia Lipomeningocele History of kidney stones Essential hypertension Dysthymic disorder DJD (degenerative joint disease) of thoracic spine Arthritis Anxiety and depression Uninodular goiter Non-compliance UTI (urinary tract infection) Cellulitis of left lower extremity Infection of bladder catheter Ulcer of left heel and midfoot with fat layer exposed Lower extremity edema Delayed wound healing Type 2 diabetes mellitus with diabetic polyneuropathy Diabetic ulcer of left heel with fat layer exposed Normochromic normocytic anemia Constipation Neurogenic bowel Neurogenic bladder Hydronephrosis of right kidney UTI (urinary tract infection) Diabetes mellitus, type II Morbid obesity with BMI of 40.0-44.9, adult Spina bifida aperta of lumbar spine History of migraine Chronic back pain Home Medications ?Medication ?Instructions ?Recorded ?Last Taken ?Type furosemide 20 mg tablet 20 mg PO 2200 fluid 08/28/18 08/10/24 History furosemide 40 mg tablet 40 mg PO BREAKFAST fluid 01/1408/10/24 History oxybutynin chloride 15 mg 15 mg PO DAILY bladder 11/1108/10/24 History tablet,extended release 24 hr acetaminophen 500 mg tablet 1,000 mg PO TID PRN PRN Pa in Or 02/12/20 08/11/24 History Fever trazodone 100 mg tablet 100 mg PO QHS sleep 01/19/21 08/10/24 History atorvastatin 80 mg tablet 80 mg PO DAILY cholesterol 0 01/29/21 08/10/24 History pen needle, diabetic 32 gauge x #400 ea 03/05/21 Unkno wn Rx (BD Ultra-Fine Hope Pen Needle) lisinopril 5 mg tablet 2.5 mg (1/2 x 5 mg) PO DAILY #90 01/21/22 08/10/24 Rx tabs pen needle, diabetic 32 gauge x #350 ea 09/01/22 Unkno wn Rx (BD Ultra-Fine Hope Pen Needle) loratadine 10 mg tablet (Allergy 10 mg PO DAILY Antigi stamine 11/07/23 08/10/24 History Relief (loratadine)) propranolol 20 mg tablet 20 mg PO BID Beta Pan 08/10/24 History ondansetron 4 mg disintegrating 4 mg PO Q8H PRN PRN Na usea #20 tabs 06/09/24 08/11/24 Rx tablet promethazine 25 mg tablet 25 mg PO TID PRN nausea and 07/31/24 08/01/24 Rx vomiting #20 tabs divalproex 500 mg tablet,delayed 500 mg PO QHS Migrain e Headaches 08/11/24 08/10/24 History release omeprazole 20 mg capsule,delayed 20 mg PO DAILY PPI 08/10/24 History release cholecalciferol (vitamin D3) 125 125 mcg PO DAILY #0 c aps 08/16/24 Unknown Rx mcg (5,000 unit) capsule enoxaparin 40 mg/0.4 mL 40 mg (0.4 mL) subcut BID #0 mL 08/16/24 Unknown Rx subcutaneous syringe insulin glargine-yfgn 100 unit/mL 30 unit (0.3 mL) sub cut QHS #1 mL 08/16/24 Unknown Rx (3 mL) subcutaneous pen insulin lispro 100 unit/mL 12 unit (0.12 mL) subcut TI DCM #0 08/16/24 Unknown Rx subcutaneous pen (Humalog KwikPen mL (U-100) Insulin) insulin lispro 100 unit/mL See Protocol subcut TIDCM # 0 mL 08/16/24 Unknown Rx subcutaneous pen (Humalog KwikPen (U-100) Insulin) linezolid 600 mg tablet 600 mg PO BID #0 tabs Unknown Rx metronidazole 500 mg tablet 500 mg PO TID #22 tabs Unknown Rx oxycodone 5 mg tablet 5 mg PO Q4H PRN PRN Pain Sco re 08/16/24 Unknown Rx 1-10 3 days #10 tabs pregabalin 75 mg capsule 75 mg PO BID #6 caps 5 Unknown Rx nitrofurantoin 100 mg PO Q12 #14 CAPSULES 0 11/20/24 Unknown Rx monohydrate/macrocrystals 100 mg capsule levofloxacin 500 mg tablet 500 mg PO DAILY 5 days #5 t abs 03/09/25 Unknown Rx ciprofloxacin HCl 500 mg tablet 500 mg PO BID #14 TABL ETS 04/05/25 Unknown Rx sulfamethoxazole 800 1 tab PO BID #14 TABLETS 01/20 Unknown Rx mg-trimethoprim 160 mg tablet ciprofloxacin HCl 500 mg tablet 500 mg PO BID 10 days #20 TABLETS 05/25/25 Unknown Rx ondansetron HCl 4 mg tablet 4 mg PO Q8H PRN nausea and 05/25/25 Unknown Rx vomiting 4 days #14 tabs oxycodone 5 mg tablet 5 mg PO Q6H PRN pain 3 days #12 05/25/25 Unknown Rx tabs Allergy/AdvReac Type Severity Reaction Status Date / Time Cephalosporins Allergy Severe Anaphylaxis Verified 05/24/25 19:44 piperacillin (From Zosyn) Allergy Intermediate Hives Verified 05/24/25 19:44 ceftriaxone (From Rocephin) Allergy Anaphylaxis Verified 05/24/25 19:44 mushroom Allergy Anaphylaxis Verified 05/24/25 19:44 peanut Allergy Anaphylaxis Verified 05/24/25 19:44 tazobactam (From Zosyn) Allergy NEEDS Verified 05/24/25 19:44 FOLLOW-UP fentanyl AdvReac Low blood Verified 05/24/25 19:44 pressure gabapentin AdvReac Other Verified 05/24/25 19:44 Gadolinium-MRI Contrast AdvReac Vomiting Verified 05/24/25 19:44 Medium Latex, Natural Rubber AdvReac Rash Verified 05/24/25 19:44 vancomycin AdvReac Rash Verified 05/24/25 19:44 Family History Mother CVA (cerebral vascular accident) Thyroid disorder Diabetes Hypertension Heart disease Hyperlipidemia Myocardial infarction, Onset Age: 54 mother had diabetes Father Cancer skin Grandmother Cancer liver Other Arthritis Skin cancer Surgical History S/P colostomy S/P thyroid biopsy (~11/06/19) history insertion suprapubic catheter Status post gastric surgery Hx of foot surgery Hx of ventral hernia repair History of spinal surgery History of cholecystectomy History of dilation and curettage Social History household members: significant other housing: house Smoking Status: Never smoker alcohol intake: current substance use type: does not use EXAM Physical Exam Const Vital Signs: 05/24/25 19:41 05/24/25 20:22 05/24/25 21:00 Temperature 99 F 99 F 98.3 F Temperature Source Temporal Temporal Temporal Pulse Rate 102 H 93 79 Respiratory Rate 18 13 15 Blood Pressure 134/83 H 134/83 H 110/69 Blood Pressure Mean 100 100 82 Pulse Ox 100 100 98 Oxygen Delivery Method Room Air Room Air 05/24/25 22:00 05/24/25 23:00 05/25/25 00:00 Temperature 98.3 F 98.6 F 98.6 F Temperature Source Oral Oral Oral Pulse Rate 78 80 72 Respiratory Rate 16 16 16 Blood Pressure 102/70 105/54 L 92/63 Blood Pressure Mean 80 71 72 Pulse Ox 100 99 100 Oxygen Delivery Method Room Air Room Air Room Air 05/25/25 00:33 Temperature 98.6 F Temperature Source Pulse Rate 71 Respiratory Rate 18 Blood Pressure 110/58 L Blood Pressure Mean 75 Pulse Ox 100 Oxygen Delivery Method MDM MDM MDM Narrative Medical decision making narrative: HISTORY OF PRESENT ILLNESS: Chief complaint: Left flank pain 44-year-old female with past medical history significant for type 2 diabetes, neurogenic bladder, CKD, hyperlipidemia, colostomy presents with left flank pain and nausea. She states this began yesterday. No falls or trauma noted. No she states her kidney stones in the left. Denies vomiting but notes nausea. Denies decreased ostomy output. Notes ongoing suprapubic catheter output. No hematuria noted. No fever. REVIEW OF SYSTEMS: Pertinent positives: Left flank pain, nausea Pertinent negatives: As per HPI PHYSICAL EXAM: Nursing triage notes reviewed, Vital signs reviewed Constitutional: please see mdm HENT: MMM Eyes: Pupils equal round and reactive to light, Extraocular muscles intact Neck: No stridor, no JVD, full neck ROM Lungs: Clear to auscultation, No wheezing or rales. No increased work of breathing, no conversational dyspnea, no accessory muscle use, no nasal flaring. No respiratory distress noted Heart: Regular rate and rhythm, No murmurs, No rubs and No gallops, 2+ distal pulses (radial, femoral, posterior tibial) in all extremities Abdomen: Soft, there is no tenderness, rigidity, rebound or guarding, no obvious peritoneal signs, no palpable pulsatile abdominal masses, no auscultated abdominal bruit : Positive left CVA tenderness Extremities: No edema Neuro: No new focal neurological deficits, cranial nerves II through XII intact, 5/5 strength in all present extremities. Intact sensation to light touch in all present extremities, 2+ reflexes bilateral patella tendons. Skin: No rash or lesions noted MEDICAL DECISION MAKING: Chief Complaint: please see [facility] External records reviewed: Reviewed CT scan abdomen pelvis from February 2025 which showed colostomy, right renal scarring, no bowel obstruction or abscess was noted Factors affecting care: As per [facility] Social determinants of health: none History obtained from others: Significant other Consults: none [facility] Narrative: Patient was initially hemodynamically stable, afebrile and nontoxic-appearing exam with left CVA tenderness. No pulsatile abdominal masses noted. I considered the following differential diagnosis: Nephrolithiasis, pyelonephritis, musculoskeletal etiology, AAA I obtained a broad lab and imaging workup to further elucidate etiology the patient's to further determine if the patient was suffering from a life- threatening etiology. I initially assisted patient with a normal saline bolus, 4 mg IV morphine, 4 mg IV Zofran and 15 mg of IV Toradol ALL IMAGES (IF OBTAINED) HAVE BEEN PERSONALLY REVIEWED AND INTERPRETED BY MYSELF. CT scan abdomen pelvis showed no evidence of nephrolithiasis or other acute intra-abdominal pathology Urinalysis consistent with UTI with CVA tenderness is most consistent with pyelonephritis CBC leukocytosis suggestive of systemic summation, no anemia or thrombocytopenia BMP without evidence of significant electrolyte abnormalities, no anion gap, no acute kidney injury. The synthesis of the patient's history, physical exam, labs images suggest likely pyelonephritis. She was given a dose of IV ciprofloxacin here. Ciprofloxacin is chosen based on prior urine culture results. She was given oral ciprofloxacin for home-going. Was also given Zofran and oxycodone for symptomatic control. Strict return precautions were discussed. PCP follow-up was discussed. The patient and/or family, caregivers express understanding. The patient and/or family, caregivers agrees with the plan. Shared decision making: I will have a discussion with the patient and or visitors regarding risk/benefits of further testing or admission. They will be made aware of of the risk/benefits inherent in this decision they will be given the opportunity to voice understanding. Total critical care time today provided was at least 0 minutes. This excludes separately billable procedures. Critical care time (if documented) is secondary to the patient having high probability of clinically significant/life threatening deterioration in the patient's condition which required my urgent intervention. Impression: 1. Acute flank pain 2. Acute pyelonephritis 3. Leukocytosis Dispo: Discharge home This note was generated with [employer] dictation software. It may contain incorrect words, spelling, and punctuation that were not noted in review of the chart prior to signing. Lab Data Labs: Laboratory Results - last 24 hr 05/24/25 05/24/25 19:58 20:33 WBC 18.9 H RBC 4.58 Hgb 13.8 Hct 40.5 MCV 88.4 MCH 30.1 MCHC 34.1 RDW Std Deviation 41.2 RDW Coeff of Claude 12.7 Plt Count 191 MPV 10.6 Immature Gran % (Auto) 0.500 Neut % (Auto) 57.3 Lymph % (Auto) 28.1 Hart % (Auto) 8.7 Eos % (Auto) 5.0 Baso % (Auto) 0.4 Absolute Neuts (auto) 10.8 H Absolute Lymphs (auto) 5.32 H Nucleated RBC % 0 Differential Comment SCANNED Sodium 135 Potassium 4.0 Chloride 101 Carbon Dioxide 20.8 Anion Gap 13 BUN 8 Creatinine 0.82 Est GFR (MDRD) Non-Af 91 BUN/Creatinine Ratio 10.3 Glucose 135 H Calcium 9.6 Urine Color Yellow Urine Clarity Cloudy Urine pH 7.0 Ur Specific [place] 1.010 Urine Protein 100 H Urine Glucose (UA) Normal Urine Ketones 15 H Urine Occult Blood 25 H Urine Nitrite Positive H Urine Bilirubin Negative Urine Urobilinogen 1 H Ur Leukocyte Esterase 500 H Urine RBC 5-10 SEEN Urine WBC >100 SEEN Ur Squamous Epith Cells 10-25 SEEN Amorphous Sediment 1+ Urine Bacteria 4+ Urine Mucus 2+ Radiography Diagnostic Testing: Clinical Impression(s) from Imaging Studies Abdomen/Pelvis CT 05/24/25 20:09 IMPRESSION: 1. No acute findings in the abdomen or pelvis. 2. Unchanged cm right renal calculus. 3. Left lower quadrant colostomy containing portions herniated bowel with no evidence of obstruction. 4. Stable chronic deformity of the T8 vertebral body. Reading Location: [facility] Discharge Plan Triage Chief Complaint: Flank Pain ED Provider: Ron Hernandez Dx/Rx/DC Orders Clinical Impression: Pyelonephritis Instructions: Kidney Infec Dc Prescriptions: New ciprofloxacin HCl 500 mg tablet 500 mg PO BID 10 Days Qty: 20 0RF ondansetron HCl 4 mg tablet 4 mg PO Q8H PRN (Reason: nausea and vomiting) 4 Days Qty: 14 0RF oxycodone 5 mg tablet 5 mg PO Q6H PRN (Reason: pain) 3 Days Qty: 12 0RF No Action atorvastatin 80 mg tablet 80 mg PO DAILY Patient Comments: Take 1 tablet by mouth once daily. (DME) pen needle, diabetic [BD Ultra-Fine Hope Pen Needle] 32 gauge x 5/32 needle See Rx Instructions .ROUTE .MEDSUPPLY Qty: 400 6RF Rx Instructions: 4x/day (DME) pen needle, diabetic [BD Ultra-Fine Hope Pen Needle] 32 gauge x 5/32 needle See Rx Instructions .ROUTE .MEDSUPPLY Qty: 350 1RF Rx Instructions: 4 times daily furosemide 20 MG tablet 20 mg PO 2200 Rx Instructions: 20 mg in the evening furosemide 40 MG tablet 40 mg PO BREAKFAST oxybutynin chloride 15 mg tablet extended release 24hr 15 mg PO DAILY acetaminophen 500 MG tablet 1,000 mg PO TID PRN PRN (Reason: Pain Or Fever) trazodone 100 mg tablet 100 mg PO QHS Patient Comments: Take 1 tablet by mouth daily at bedtime. lisinopril 5 mg tablet 2.5 mg PO DAILY Qty: 90 3RF Rx Instructions: Hold for SBP less than 130 mmHg ondansetron 4 mg tablet,disintegrating 4 mg PO Q8H PRN PRN (Reason: Nausea) Qty: 20 0RF promethazine 25 mg tablet 25 mg PO TID PRN (Reason: nausea and vomiting) Qty: 20 0RF divalproex 500 mg tablet,delayed release (DR/EC) 500 mg PO QHS omeprazole 20 mg capsule,delayed release(DR/EC) 20 mg PO DAILY cholecalciferol (vitamin D3) 125 mcg (5,000 unit) Capsule 125 mcg PO DAILY Qty: 0 0RF enoxaparin 40 mg/0.4 mL Syringe 40 mg subcut BID Qty: 0 0RF insulin lispro [Humalog KwikPen Insulin] 100 unit/mL Insulin Pen 12 unit subcut TIDCM Qty: 0 0RF insulin lispro [Humalog KwikPen Insulin] 100 unit/mL Insulin Pen See Protocol subcut TIDCM Qty: 0 0RF Protocol: 3. Sliding Scale Insulin Med Dosing Condition: 150-189 mg/dl = 1 unit Condition: 190-229 mg/dl = 2 units Condition: 230-269 mg/dl = 3 units Condition: 270-309 mg/dl = 4 units Condition: 310-349 mg/dl = 5 units Condition: 350-399 mg/dl = 6 units Condition: 400-449 mg/dl = 7 units Condition: Greater than 449 call physician Protocol Text: Suggested for: - Patients on Total Daily Insulin Dose of 37-55 units - Obese, infected, or steroid patients MEDIUM DOSING ALGORITHIM insulin glargine-yfgn 100 unit/mL (3 mL) Insulin Pen 30 unit subcut QHS Qty: 1 0RF metronidazole 500 mg Tablet 500 mg PO TID Qty: 22 0RF Rx Instructions: Give 22 doses starting the evening of 08/16/2024 linezolid 600 mg Tablet 600 mg PO BID Qty: 0 0RF Rx Instructions: Give 15 doses starting the evening of 08/16/2024 oxycodone 5 mg Tablet 5 mg PO Q4H PRN PRN (Reason: Pain Score 1-10) 3 Days Qty: 10 0RF pregabalin 75 mg Capsule 75 mg PO BID Qty: 6 0RF levofloxacin 500 mg tablet 500 mg PO DAILY 5 Days Qty: 5 0RF propranolol 20 mg tablet 20 mg PO BID loratadine [Allergy Relief (loratadine)] 10 mg tablet 10 mg PO DAILY nitrofurantoin monohyd/m-cryst 100 mg capsule 100 mg PO Q12 Qty: 14 0RF ciprofloxacin HCl 500 mg tablet 500 mg PO BID Qty: 14 0RF sulfamethoxazole-trimethoprim 800-160 mg tablet 1 tab PO BID Qty: 14 0RF Primary Care Provider: Will Shukla Referrals: Will Shukla MD [Primary Care Provider, [facility]] Activity Restrictions/Additional Instructions: Thank you for trusting us with your care today! Your labs and images were most consistent with a kidney infection. This is treated antibiotics. Please take antibiotics till course complete. Please take Zofran as needed for nausea vomiting control Please take Tylenol (2 pills, 650 mg), ibuprofen (2 pills, 400 mg) every 6 hours as needed for pain and fever control. Please take oxycodone for breakthrough pain please return to the emergency department if your symptoms change or worsen. Please follow with your primary care physician for further outpatient evaluation and management. Print Language: [place]guill[place] Disposition Disposition: Home, Self Care Discharge Date/Time: 05/25/25 00:44
--- NOTE | 2025-05-24 20:09 | CT_ITS ---
PROCEDURE: ABDOMEN/PELVIS WITHOUT CONT 05/24/2025 REASON FOR EXAM: LEFT FLANK PAIN TECHNIQUE: Procedure Code: [id number] Modality: CT Procedure: ABDOMEN/PELVIS WITHOUT CONT Noncontrast technique limits evaluation of the abdominal and pelvic viscera. Coronal and Sagittal reconstruction series were provided. One or more dose reduction techniques were used (e.g., Automated exposure control, adjustment of the mA and/or kV according to patient size, use of iterative reconstruction technique). COMPARISON: CT abdomen and pelvis 03/08/2025 FINDINGS: Lung bases: Unremarkable. Liver: Mildly enlarged measuring 18.7 cm craniocaudally. Gallbladder: Surgically absent. No biliary ductal dilatation. Spleen: Normal size. Pancreas: Normal size. No surrounding inflammation. Adrenals: No adrenal masses. Kidneys: Stable scarring of the right kidney. Nonobstructive right kidney lower pole calculus measures 7 mm. No left renal calculus. No hydronephrosis bilaterally. Bladder: Collapsed around a suprapubic catheter. Reproductive Organs: Normal uterine size and contour. Ovaries are unremarkable. Bowel: Redemonstrated bowel surgery. Unchanged left lower quadrant colostomy containing portions of herniated bowel. No evidence of bowel obstruction. No inflammatory changes. Appendix: The appendix is not identified. There is no inflammatory process identified in the right lower quadrant to suggest appendicitis. Lymph nodes: Unremarkable. Vasculature: The abdominal aorta and IVC contours are normal. Noncontrast technique limits evaluation. Peritoneum / Retroperitoneum: No free fluid or air. Bones: Stable chronic deformity of the T8 vertebral body. No acute fractures. CT/Abdomen/Pelvis without Cont IMPRESSION: 1. No acute findings in the abdomen or pelvis. 2. Unchanged cm right renal calculus. 3. Left lower quadrant colostomy containing portions herniated bowel with no ev idence of obstruction. 4. Stable chronic deformity of the T8 vertebral body. Reading [facility]
[2025-05-24] MEDS: 0.9% Normal Saline (1000mL) 1,000 ML 1000 ML IV (20:18)
[2025-05-24 20:19] LABS: Hematocrit 40.5 % (37-47); Hemoglobin 13.8 g/dL (12.0-15.0); Immature Granulocytes Count 0.100 X10^3/uL (0.0-0.0); Mean Corp Hgb Conc 34.1 g/dL (32-36); Mean Corpuscular Volume 88.4 fL (81-99); Mean Platelet Vol. 10.6 fl (6.2-12.0); NRBC Flagged by Analyzer 0 % (0-5); POSITIVE DIFFERENTIAL YES; POSITIVE MORPHOLOGY YES; Platelet Count 191 K/mm3 (150-450); RBC Distribution Width CV 12.7 % (11.6-14.6); RBC Distribution Width SD 41.2 fl (35.1-43.9); Red Blood Count 4.58 M/mm3 (4.2-5.4); White Blood Count 18.9 K/mm3 (4.4-11.0)
[2025-05-24 20:21] LABS: Differential Indicated SCAN CRITERIA MET
[2025-05-24 20:22] VITALS: BP 134/83; PULSE 93; RESP 13; TEMP 37.2; O2SAT 100
--- OUTSIDE RECORDS SUMMARY | 2025-05-24 20:27 | XMS RPT_ITS | CCD ---
Author Organization [facility] Care Team Providers Care Signalling And Communications Engineer Name Role Phone LETIRIGO WALLS Unavailable Unavailable WILL BRANNON A Unavailable Unavailable WILL BRANNON A Unavailable Unavailable ALREID HERNANDEZ R Unavailable Unavailable REFERRING, PHY WO ID Unavailable Unavailable REFERRING, PHY WO ID Unavailable Unavailable ALI, NOAMAN S Unavailable Unavailable Fawn Herrera Unavailable Unavailable Kevin Brannonrey A Unavailable Unavailable ALI, NOAMAN S Unavailable Unavailable Kevin Brannonrey A Unavailable Unavailable ALI, NOAMAN S Unavailable Unavailable ALI, NOAMAN S Unavailable Unavailable Vazquez, Will A Unavailable Unavailable ALI, NOAMAN S Unavailable Unavailable ALI, NOAMAN S Unavailable Unavailable IMCA Unavailable Unavailable Vazquez, Will A Unavailable Unavailable Vazquez, Will A Unavailable Unavailable ANNAMARIA CHAUDHARY Unavailable Unavailable ALI, NOAMAN Unavailable Unavailable FAWN HERRERA Unavailable Unavailable ALI, NOAMAN Unavailable Unavailable ALI, NOAMAN Unavailable Unavailable ALI, NOAMAN Unavailable Unavailable ALI, NOAMAN Unavailable Unavailable CHAUDHARYANNAMARIA SOLISITA Unavailable Unavaila ble ALI, NOAMAN Unavailable Unavailable WILL BRANNON MD Primary Care Physician Will Brannon MD Primary Care Provider Dr. Will Brannon Primary Care Provider Dr. Agustin Aguilar Emergency Provider Dr. Rigo Encarnacion Admit Provider Dr. Rigo Encarnacion Attending Provider Dr. Rigo Encarnacion Other Provider Dr. Too Hendricks Attending Provider Kotsonis, Dr. Too F Other Provider Vazquez FITZGERALD, Will Morrow Primary Care Provider VAZQUEZ FITZGERALD, WILL Morrow Primary Care Physician Vazquez FITZGERALD, Will Morrow Primary Care Provider Vazquez FITZGERALD, Will Morrow Primary Care Provider Dr. Will Brannon Primary [...] Referring Unavailable WILL BRANNON Primary Care Unavailable BAWWAB, AMEED Admitting Unavailable BAWWAB, AMEED Attending Unavailable RAMANA CORONA Consulting Unavailable OMOMRENA, ELIZABETH DO Attending Unavailable ELIZABETH PEDROZA DO Primary Care Unavailable ELIZABETH PEDROZA DO Admitting Unavailable Katie Vegas RN Unavailable Unavailable ARACELI TORRES Referring Unavailable WILL BRANNON Primary Care Unavailable Will Brannon MD Primary Care Provider [phone] Will Brannon MD Primary Care Provider VAZQUEZ FITZGERALD, WILL Morrow Primary Care Unavailable KRISTOFER LARKIN MD Admitting Unavailable ALTAGRACIA HARE MD Attending Unavailable LOI LINDSAY Consulting Unavailable JOHAN GERMAN MD Consulting Unavailable ARACELI KIDD DO Consulting Loree KRISTINE Lagos MD Consulting Unavaila COREEN Lundy MD Consulting Unavailable AKHIL RADER MD, DR JORGE DONNELLY Consulting Unavaila reina BRANNON MD, WILL Morrow Primary Care Unavailable BABS FITZGERALD, DR MONTES DE OCA Attending Unavailjennie DOMINGUEZ MD, BRADY Naylor Attending Unavailable VAZQUEZ FITZGERALD, WILL Morrow Primary Care Unavailable MARTIN CHAHAL MD Attending Unavail able WILL BRANNON MD Primary Care Unavailable WILL BRANNON MD Primary Care Unavailable GEOFF DAVIS-KYARA PABON Admitting Unavailab SOLEDAD Burgess DO Attending Unavailable WILL BRANNON MD Primary Care Unavailable DR WALLACE BRUNSON MD Admitting Unavailable JEREMIAH FITZGERALD, JC Attending Unavailable JC RETANA MD Referring Unavailable CAS PAYNE DO Attending Unavailable WILL BRANNON MD Primary Care Unavailable KRISTOFER LARKIN MD Consulting Unavailable TYLER BARRETT DO Attending Unavailable WILL BRANNON MD Primary Care Unavailable Ashley DAVIS.DIRECTOR LABOR STANDARDS, Devin Unavailable Ronaldo HANNAH, Netta Unavailable Dr. Will Brannon MD Primary Care Provider Vazquez FITZGERALD, Dr. Solis Attending Provider Dr. Will Brannon MD Referring Provider Mee CHRISTIANSON, Dr. Barrett Attending Provider Mee CHRISTIANSON, Dr. Barrett Emergency Provider Teddy CHRISTIANSON, Dr. Sierra Attending Provider Teddy CHRISTIANSON, Dr. Sierra Emergency Provider Say FITZGERALD, Dr. Erickson Attending Provider Say FITZGERALD, Dr. Erickson Emergency Provider Mary CHRISTIANSON, Dr. Velasquez Emergency Provider Narinder FITZGERALD, Dr. Brown Emergency Provider de Billy CHRISTIANSON, Dr. Fletcher Admit Provider Unavail able de Billy CHRISTIANSON, Dr. Fletcher Attending Provider Unav ailable Mary CHRISTIANSON, Dr. Velasquez Attending Provider Rose DO, Dr. Fletcher Other Provider Unavail able Rosalind CHRISTIANSON, Dr. Booker Attending Provider Abi FITZGERALD, Dr. Betts Other Provider Carlos REYES, Dr. Zelaya Other Provider Rsoalind CHRISTIANSON, Dr. Booker Other Provider Vazquez FITZGERALD, Will Morrow Primary Care Provider Dr. Will Brannon MD Primary Care Provider Dr. Emilee Richard MD Attending Provider Unavaila Dr. Emilee Alcantara MD Referring Provider Unavaila reina George SLIP MAKER.DIRECTOR LABOR STANDARDS, Devin Unavailable Ronaldo HANNAH, Netta Unavailable Dr. Will Brannon MD Primary Care Provider Dr. Rigo Espinal DO Emergency Provider Dr. Will Brannon MD Primary Care Physician Dr. Andre Sue DO Attending Physician Dr. Andre Sue DO Emergency Department Physic alli Dr. Alexander Hooks DO Attending Physician [phone] Dr. Alexander Hooks DO Emergency Department Physic alli Vazquez, Will Primary Care Unavailable Andre Sue Attending Unavailable Ramana Rose Admitting Unavailable Ramana Rose Consulting Unavailable Vazquez, Will Primary Care Unavailable Quynh Boyer Attending Unavailable Bev Ngo Consulting Unavailable Mc Gonzalez Consulting Unavailable Quynh Boyer Consulting Unavailable Vazquez, Will Primary Care Unavailable Gudla OLS, Emilee Attending Unavailable Gudla OLS, Emilee Referring Unavailable Vazquez, Will Primary Care Unavailable Alexander Hooks Attending Unavailable Arnold Caban Attending Unavailable Vazquez, Will Primary Care Unavailable Rigo Espinal Attending Unavailable Vazquez, Will Primary Care Unavailable Vazquez, Will Referring Unavailable Vazquez, Will Attending Unavailable Vazquez, Will Primary Care Unavailable Ramana Rose Attending Unavailable Vazquez, Will Referring Unavailable Vazquez, Will Attending Unavailable Vazquez, Will Primary Care Unavailable Xavier Sanderson Attending Unavailable Vazquez, Will Primary Care Unavailable Dre Deal Attending Unavailable Vazquez, Will Primary Care Unavailable Vazquez, Will Primary Care Unavailable Gudla OLS, Emilee Attending Unavailable Gudla OLS, Emilee Referring Unavailable Ron Hernandez Attending Unavailable Vazquez, Will Primary Care Unavailable Ramana Rose Admitting Unavailable Ramana Rose Consulting Unavailable Quynh Boyer Attending Unavailable Vazquez, Will Primary Care Unavailable Bev Ngo Consulting Unavailable Mc Gonzalez Consulting Unavailable Vazquez, Will Primary Care Unavailable Gudla OLS, Emilee Attending Unavailable Vazquez, Will Primary Care Unavailable Gudla OLS, Emilee Attending Unavailable Gudla OLS, Emilee Referring Unavailable Vazquez, Will Primary Care Unavailable Gudla OLS, Emilee Attending Unavailable Vazquez, Will Primary Care Unavailable Rigo Espinal Attending Unavailable SABRA NEVAREZ Attending Unavailable VAZQUEZ, WILL [...] Unavailable VAZQUEZ, WILL A Primary Care Unavailable KANDACE ALEXANDER Attending Unavailable VAZQUEZ, WILL A Primary Care Unavailable VAZQUEZ, WILL A Referring Unavailable VAZQUEZ, WILL A Primary Care Unavailable VAZQUEZ, WILL A Referring Unavailable VAZQUEZ, WILL A Primary Care Unavailable NILDA UNDERWOOD Attending Unavailable VAZQUEZ, WILL A Primary Care Unavailable VAZQUEZ, WILL A Primary Care Unavailable VAZQUEZ, WILL A Referring Unavailable VAZQUEZ, WILL A Primary Care Unavailable VAZQUEZ, WILL A Primary Care Unavailable CORY BOX Attending Unavailable VAZQUEZ, WILL A Primary Care Unavailable VAZQUEZ, WILL A Primary Care Unavailable VAZQUEZ FITZGERALD, WILL A Primary Care Unavailable SOLEDAD VARGAS MD Attending Unavailable CAROLYN FITZGERALD, DR SUSAN Cruz Attending Keshav BRANNON MD, WILL A Primary Care Unavailable LUDWIG MAYER DO Attending Unavailable VAZQUEZ FITZGERALD, WILL A Primary Care Unavailable VAZQUEZ FITZGERALD, WILL Morrow Primary Care Unavailable PIPO CHRISTIANSON, DR ELMIRA Don Attending Unavailable VAZQUEZ FITZGERALD, WILL A Primary Care Unavailable PIPO CHRISTIANSON, DR ELMIRA Don Attending Unavailable Allergies Allergy Classification Reported Allergen(s) Allergy Type Date of Onset Reaction(s) Facility Anti-Epileptic Agents (1 source) gabapentin; Translations: [gabapentin] Drug Allergy psychotic breakdown [facility] Comment on above: Psychotic breakdown. Cephalosporins (antibiotic) (2 sources) cefTRIAXone; Translations: [ceftriaxone] Drug Allergy Hives, Anaphylaxis [facility] Comment on above: Hives, itching, redn ess anaphylaxis Contrast Media (1 source) Contrast media; Translations: [contrast media (gadolinium-based) ] Substance Allergy [facility] Glycopeptides (antibiotic) (1 source) Vancomycin; Translations: [vancomycin] Drug Allergy [facility] Comment on above: red man syndrome Penicillins (antibiotic) (1 source) Penicillin; Translations: [penicillin] Drug Allergy Unknown [facility] Comment on above: Was given at same ti me as Cephalosporins. Unknown if also contributed to anaphylaxis. (1 source) peanut; Translations: [PEANUT ALLERGY] Propensity to adverse reactions to drug (disorder) 08-06-19 16 [facility] Repository (1 source) MUSHROOM EXTRACT COMPLEX; Translations: [MUSHROOM EXTRACT COMPLEX] Propensity to adverse reactions to drug (disorder) 08-13-19 16 [facility] Repository (20 sources) Mushroom (edible); Translations: [MUSHROOM] Propensity to adverse reactions (disorder) 06-10-19 17 Anaphylaxis [facility] Repository (20 sources) peanut; Translations: [PEANUTS] Propensity to adverse reactions (disorder) 06-10-19 17 Anaphylaxis [facility] Repository (20 sources) GADOLINIUM-CONTAIN ING CONTRAST MEDIA; Translations: [GADOLINIUM-CONTAI MELODIE CONTRAST MEDIA] Propensity to adverse reactions (disorder) 01-04-20 17 GI Upset [facility] Repository (3 sources) Contrast media; Translations: [iodinated radiocontrast agents] Drug allergy [facility] (20 sources) Latex; Translations: [LATEX] Allergy to substance 02-22-20 19 Rash [facility] (4 sources) Mushroom (edible); Translations: [MUSHROOMS] Food allergy [facility] (20 sources) cefTRIAXone; Translations: [ceftriaxone] Drug Allergy 09-18-19 Anaphylaxis [facility] Work Phone: Comment on above: Hives, itching, redn ess (20 sources) natural latex rubber; Translations: [Latex, Natural Rubber] Propensity to adverse reactions 09-18-19 [facility] (20 sources) peanut allergenic extract; Translations: [PEANUT] Drug Allergy 12-24-19 21 Anaphylaxis [facility] (20 sources) Gadolinium-MRI Contrast Medium; Translations: [Gadolinium-MRI Contrast Medium] Propensity to adverse reactions 09-18-19 Vomiting [facility] (20 sources) fentaNYL Drug Allergy 10-01-19 Other: See Comments [facility] Work Phone: Comment on above: decreased breathing was on a vent (20 sources) gabapentin; Translations: [gabapentin] Drug Allergy 10-01-19 Mental Status Change [facility] Comment on above: Psychotic breakdown. 'psychotic rage' (6 sources) Lidocaine Drug Allergy 10-01-19 Other: See Comments [facility] Work Phone: (6 sources) Midazolam Drug Allergy 10-01-19 Other: See Comments [facility] Work Phone: (6 sources) Propofol Drug Allergy 10-01-19 Other: See Comments [facility] Work Phone: (6 sources) Rocuronium Drug Allergy 10-01-19 Other: See Comments [facility] Work Phone: (20 sources) Cephalosporins (Antibiotic); Translations: [CEPHALOSPORINS] Drug Allergy 12-10-19 Anaphylaxis [facility] Work Phone: (2 sources) Penicillin; Translations: [penicillin] Drug Allergy [facility] (20 sources) Cephalosporins (Antibiotic); Translations: [cephalosporins] Drug allergy 12-10-19 Anaphylaxis [facility] Comment on above: anaphylaxis (20 sources) Penicillin; Translations: [penicillin] Drug Allergy Unknown [facility] Comment on above: Was given at same ti me as Cephalosporins. Unknown if also contributed to anaphylaxis. (14 sources) Latex 4 Allergy to substance Hives [facility] Comment on above: Hives (10 sources) Peanuts 5 Food allergy Throat swelling [facility] Comment on above: Throat swells. (10 sources) Mushrooms 7 Food allergy Throat swelling [facility] Comment on above: Throat swells. (10 sources) Contrast dye 8; Translations: [iodinated radiocontrast agents] Drug allergy Vomiting [facility] Comment on above: [facility] Con trast Dye causes N/V. [facility] constrast dye did not. (1 source) Piperacillin / tazobactam Drug Allergy 07-13-19 NEEDS FOLLOW-UP [facility] (20 sources) Vancomycin; Translations: [vancomycin] Drug Allergy 07-12-19 Rash [facility] Comment on above: red man syndrome (18 sources) Piperacillin Drug Allergy 07-18-19 NEEDS FOLLOW-UP, Hives [facility] Comment on above: Hives and itching (18 sources) tazobactam Drug Allergy 07-18-19 NEEDS FOLLOW-UP [facility] (1 source) CONTRAST MEDIA, IODINE RELATED Drug allergy (disorder) [facility] Repository (1 source) Latex 3 Allergy to substance [facility] Comment on above: Hives (1 source) Mushrooms 5 Food allergy Throat swelling [facility] Comment on above: Throat swells. (1 source) Contrast dye 6; Translations: [iodinated radiocontrast agents] Drug allergy Vomiting [facility] Comment on above: [facility] Con trast Dye causes N/V. [facility] constrast dye did not. (4 sources) Peanuts 8 Food allergy Throat swelling [facility] Comment on above: Throat swells. (9 sources) Contrast media; Translations: [contrast media (gadolinium-based) ] Drug allergy [facility] (5 sources) Latex 5 Allergy to substance [facility] Comment on above: Hives (6 sources) Peanuts 6 Food allergy Throat swelling [facility] Comment on above: Throat swells. (7 sources) Mushrooms 8 Food allergy Throat swelling [facility] Comment on above: Throat swells. (3 sources) Mushrooms 6 Food allergy Throat swelling [facility] Comment on above: Throat swells. (6 sources) Cephalosporins (Antibiotic) Allergy to substance 08-12-19 Anaphylaxis [facility] (1 source) Peanuts 7 Food allergy Throat swelling [facility] Comment on above: Throat swells. (1 source) cefTRIAXone Drug Allergy 04-05-20 [facility] Repository (1 source) Cephalosporins (Antibiotic) Drug allergy (disorder) 04-05-20 [facility] Repository (1 source) fentaNYL Drug Allergy 04-05-20 [facility] Repository (1 source) gabapentin Drug Allergy 04-05-20 [facility] Repository (1 source) peanut allergenic extract Drug Allergy 04-05-20 [facility] Repository (1 source) Piperacillin Drug Allergy 04-05-20 [facility] Repository (1 source) tazobactam Drug Allergy 04-05-20 [facility] Repository (1 source) Vancomycin Drug Allergy 04-05-20 [facility] Repository (1 source) Latex 7 Allergy to substance [facility] Comment on above: Hives Medications Current Medications Medication Drug Class(es) Dates Sig (Normalized) Sig (Original) acetaminophen 500 mg oral tablet (20 sources) Start: 02-12-2020 take 2 tablets by mouth three times daily as needed for pain Start: 02-12-2020 Start: 01-13-2019 acetaminophen (TYLENOL) 500 mg tablet Take 650 mg by mouth every 6 hours as needed. 01/13/2019 Active Start: 01-13-2019 End: 02-09-2022 acetaminophen (TYLENOL) 325 mg tablet 325 mg as needed. 0 01/13/2019 02/09/2022 Discontinued Comment on above: 325 mg as needed. Take 650 mg by mouth . acetaminophen 325 mg / HYDROcodone bitartrate 5 mg oral tablet (20 sources) Opioid Agonist Start: 01-30-2025 End: 02-02-2025 take 1 tablet by mouth every six hours as needed for pain [place] 325- 5 mg oral tablet Dose = 1 tab(s), Oral, q6h, PRN as needed for pain, X 3 day(s), # 12 tab(s), 0 Refill(s), Abdominal pain, 97.7 Start Date: 01/30/25 Stop Date: 02/02/25 Status: Ordered Medication Dispense Status: Completed Quantity: 12.0 Unit: tab(s) Total Allowed Fills: 1 Fills Dispensed: 0 Indications: Unspecified abdominal pain; Start: 06-09-2024 End: 08-11-2024 Hydrocodone-Acetaminophen 5- 325 mg tablet Discontinued 1 {tbl} PO EVERY 6 HOURS NEEDED as needed for Pain 12 3 0 June 09, 2024 August 11, 2024 10:23pm Complicated urinary tract infection Urinary tract infection, site not specified Start: 06-09-2024 End: 08-11-2024 Start: 02-03-2024 End: 02-06-2024 take 1 tablet by mouth every six hours as needed for pain [place] 325- 5 mg oral tablet Dose = 1 tab(s), Oral, q6h, PRN as needed for pain, X 3 day(s), # 12 tab(s), 0 Refill(s), Abdominal pain, 98.8 Start Date: 02/03/24 Stop Date: 02/06/24 Status: Ordered Start: 04-28-2021 End: 05-01-2021 take 1 tablet by mouth every eight hours as needed for pain [place] 325- 5 mg oral tablet Dose = 1 tab(s), Oral, q8h, PRN as needed for pain, X 3 day(s), # 9 tab(s), 0 Refill(s), Abdominal pain, 102.3 Start Date: 04/28/21 Stop Date: 05/01/21 Status: Ordered Start: 02-26-2019 End: 03-06-2019 Hydrocodone-Acetaminophen 1 TABLET tablet Discontinued 1 {tbl} PO EVERY 6 HOURS NEEDED as needed for Pain 10 3 0 February 26, 2019 February 28, 2019 12:00am March 06, 2019 12:08am Abdominal pain Unspecified abdominal pain Start: 02-26-2019 End: 03-06-2019 Start: 02-26-2019 End: 03-06-2019 take 1 tablet by mouth every six hours as needed Hydrocodone-Acetaminophen Discontinued 1 TABLET PO EVERY 6 HOURS NEEDED 10 3 February 26, 2019 March 06, 2019 12:08am Start: 11-24-2018 End: 11-27-2018 Hydrocodone-Acetaminophen 1 TABLET tablet Discontinued 1 {tbl} PO EVERY 6 HOURS NEEDED as needed for Pain 10 3 0 November 24, 2018 November 26, 2018 12:00am November 27, 2018 12:07am Postoperative wound infection Infection following a procedure, other surgical site, initial encounter Start: 11-24-2018 End: 11-27-2018 Start: 11-24-2018 End: 11-27-2018 take 1 tablet by mouth every six hours as needed Hydrocodone-Acetaminophen Discontinued 1 TABLET PO EVERY 6 HOURS NEEDED 02 28November 24, 2018 November 27, 2018 12:07am Start: 04-24-2018 End: 04-27-2018 Hydrocodone-Acetaminophen 1 TABLET tablet Discontinued 1 {tbl} PO EVERY 6 HOURS NEEDED as needed for Pain 10 3 April 24, 2018 1:00am April 26, 2018 1:00am April 27, 2018 1:17am Ingrown toenail of left foot Ingrowing nail Start: 04-24-2018 End: 04-27-2018 Start: 04-24-2018 End: 04-27-2018 take 1 tablet by mouth every six hours as needed Hydrocodone-Acetaminophen Discontinued 1 TABLET PO EVERY 6 HOURS NEEDED 10 April 24, 2018 1:00am April 27, 2018 1:17am Start: 03-03-2018 End: 03-06-2018 Hydrocodone-Acetaminophen 1 TABLET tablet Discontinued 1 {tbl} PO EVERY 6 HOURS NEEDED as needed for Pain 10 3 March 03, 2018 12:00am March 05, 2018 12:00am March 06, 2018 12:10am Spina bifida aperta of lumbar spine Contusion of lower back and pelvis, initial encounter Type 2 diabetes mellitus Lumbar spina bifida without hydrocephalus Contusion of lower back and pelvis, initial encounter Type 2 diabetes mellitus without complications Start: 03-03-2018 End: 03-06-2018 Start: 03-03-2018 End: 03-06-2018 take 1 tablet by mouth every six hours as needed Hydrocodone-Acetaminophen Discontinued 1 TABLET PO EVERY 6 HOURS NEEDED 02 28March 03, 2018 12:00am March 06, 2018 12:10am Start: 12-24-2017 End: 01-18-2018 Hydrocodone-Acetaminophen 1 TABLET tablet Discontinued 1 - 2 {tbl} PO EVERY 4 HOURS NEEDED as needed for Pain 3 December 24, 2017 12:00am January 18, 2018 2:24pm Abdominal tenderness, unspecified site Start: 12-24-2017 End: 01-18-2018 Start: 12-24-2017 End: 01-18-2018 take 1 tablet by mouth every four hours as needed Hydrocodone-Acetaminophen Discontinued 1 - 2 TABLET PO EVERY 4 HOURS NEEDED 3 December 24, 2017 12:00am January 18, 2018 2:24pm acetaminophen 325 mg / oxyCODONE hydrochloride 5 [...] day(s), # 8 tab(s), 0 Refill(s), Pharmacy: [id number], Pyelonephritis, 155, cm, 07/15/23 13:05:00 EST, [...] 20, 2021 4:20am Start: 06-30-2020 End: 07-05-2020 Oxycodone-Acetaminophen 1 TA BLET tablet Discontinued 1 {tbl} PO EVERY 6 HOURS NEEDED as needed for Pain Score 6-10 20 5 0 June 30, 2020 July 04, 2020 1:00am July 05, 2020 1:03am Fracture of left foot Unspecified fracture of left foot, initial encounter for closed fracture Start: 06-30-2020 End: 07-05-2020 Start: 06-30-2020 End: 07-05-2020 take 1 tablet by mouth every six hours as needed Oxycodone-Acetaminophen Discontinued 1 TABLET PO EVERY 6 HOURS NEEDED 20 5 June 30, 2020 July 05, 2020 1:03am Start: 01-26-2016 End: 01-29-2016 Oxycodone-Acetaminophen 1 TA BLET tablet Discontinued 1 - 2 {tbl} PO EVERY 6 HOURS NEEDED as needed for Pain January 26, 2016 12:00am January 29, 2016 1:06pm Start: 01-26-2016 End: 01-29-2016 Start: 01-26-2016 End: 01-29-2016 take 1 tablet by mouth every six hours as needed Oxycodone-Acetaminophen Discontinued 1 - 2 TABLET PO EVERY 6 HOURS NEEDED January 26, 2016 12:00am January 29, 2016 1:06pm Start: 11-15-2015 End: 11-18-2015 Oxycodone-Acetaminophen 1 TA BLET tablet Discontinued 1 - 2 {tbl} PO EVERY 4 HOURS NEEDED as needed for Pain November 15, 2015 12:00am November 18, 2015 1:50pm Start: 11-15-2015 End: 11-18-2015 Start: 11-15-2015 End: 11-18-2015 take 1 tablet by mouth every four hours as needed Oxycodone-Acetaminophen Discontinued 1 - 2 TABLET PO EVERY 4 HOURS NEEDED November 15, 2015 12:00am November 18, 2015 1:50pm Start: 01-06-2015 End: 01-20-2015 Oxycodone-Acetaminophen 1 TA BLET tablet Discontinued 1 - 2 {tbl} PO EVERY 4 HOURS NEEDED as needed for Pain January 06, 2015 12:00am January 20, 2015 9:53am Start: 01-06-2015 End: 01-20-2015 Start: 01-06-2015 End: 01-20-2015 take 1 tablet by mouth every four hours as needed Oxycodone-Acetaminophen Discontinued 1 - 2 TABLET PO EVERY 4 HOURS NEEDED January 06, 2015 12:00am January 20, 2015 9:53am Start: 01-17-2014 End: 04-04-2014 Oxycodone-Acetaminophen 1 TA BLET tablet Discontinued 2 {tbl} PO EVERY 8 HOURS NEEDED as needed for Pain 10 January 17, 2014 12:00am April 04, 2014 9:42am Start: 01-17-2014 End: 04-04-2014 Start: 01-17-2014 End: 04-04-2014 take 2 tablets by mouth every eight hours as needed Oxycodone-Acetaminophen Discontinued 2 TABLET PO EVERY 8 HOURS NEEDED January 17, 2014 12:00am April 04, 2014 9:42am Start: 09-15-2013 End: 10-15-2013 Oxycodone-Acetaminophen 1 TA BLET tablet Discontinued 1 - 2 {tbl} PO EVERY 4 HOURS NEEDED as needed for Pain September 15, 2013 12:00am October 15, 2013 12:45pm Start: 09-15-2013 End: 10-15-2013 Start: 09-15-2013 End: 10-15-2013 take 1 tablet by mouth every four hours as needed Oxycodone-Acetaminophen Discontinued 1 - 2 TABLET PO EVERY 4 HOURS NEEDED September 15, 2013 12:00am October 15, 2013 12:45pm apixaban 5 mg oral tablet (20 sources) Factor Xa Inhibitor Start: 11-22-2023 End: 07-09-2024 Eliquis 5 mg oral tablet Dose : 5 mg = 1 tab(s), Oral, BID, # 60 tab(s), 0 Refill(s), Pharmacy: [facility] [facility] #30, 155, cm, 11/18/23 9:54:00 EDT, Height, 108.4, kg, 11/18/23 9:54:00 EDT, Dosing Weight Start Date: 11/22/23 Status: Ordered Medication Dispense Status: Completed Quantity: 60.0 Unit: tab(s) Total Allowed Fills: 1 Fills Dispensed: 0 Start: 11-22-2023 End: 01-31-2024 take 1 tablet by mouth every twelve hours ELIQUIS 5 mg tab(s) Take 1 tablet by mouth every 12 hours. 11/22/2023 01/31/2024 Discontinued atorvastatin 80 mg oral tabl et (20 sources) HMG-CoA Reductase Inhibitor Start: 01-29-2021 Start: 11-23-2020 End: 01-24-2025 atorvastatin 80 mg oral tabl et Dose : 80 mg = 1 tab(s), Oral, Daily Start Date: 07/15/23 Status: Ordered Medication Dispense Status: Completed Total Allowed Fills: 1 Fills Dispensed: 0 Start: 11-01-2019 End: 2019 take 2 tablets by mouth at bedtime Atorvastatin 10 mg tablet Discontinued 20 mg PO AT BEDTIME November 01, 2019 8:59am 2019 11:01am cholesterol lowering Start: 11-01-2019 End: 2019 take 20 mg by mouth at bedtime Atorvastatin Discontinu ed 20 MG PO AT BEDTIME November 01, 2019 8:59am 2019 11:01am Start: 11-07-2017 End: 11-01-2019 take 1 tablet by mouth at bedtime Atorvastatin 10 MG tablet Discontinued 10 mg PO AT BEDTIME November 07, 2017 12:00am November 01, 2019 9:00am cholesterol lowering Start: 11-07-2017 End: 2019 Comment on above: Take 1 tablet by [...] by mouth. cholecalciferol 0.125 mg oral capsule (5 sources) Vitamin D Start: 08-16-2024 take 1 capsule by mouth once daily COMPOUNDED PRESCRIPTION (20 sources) Start: 12-05-2017 COMPOUNDED [...] tube. DX: Qo5.4 and K59.2 DME MISCellaneous (16 sources) Start: 02-25-2023 DME MISCellaneous See Instructions, Sterile water, 40 syringes, 40 needles, alchohol swabs., # 1 EA, 0 Refill(s), 97.9 Start Date: 02/25/23 Status: Ordered Medication Dispense Status: Completed Quantity: 1.0 Unit: EA Total Allowed Fills: 1 Fills Dispensed: 0 Start: 02-25-2023 DME MISCellane ous See Instructions, [...] Ordered Drainage Bag misc (20 sources) Start: 12-03-2024 Drainage Bag m isc Indications: Neurogenic bladder , Suprapubic catheter (HCC) 1 each every 2 weeks. 12 each 12/03/2024 Active Start: 12-05-2023 End: 12-03-2024 Drainage Bag misc Indication s: Neurogenic bladder 1 Each every 2 weeks. 12 Each 12/05/2023 12/03/2024 Discontinued (Availability) Start: 12-05-2023 Drainage Bag m isc Indications: Neurogenic bladder 1 Each every 2 weeks. 12 Each 4 12/05/2023 Active Start: 12-02-2022 Drainage Bag m isc Indications: Neurogenic bladder 1 Each every 2 weeks. 12 Each 2 12/02/2022 Active Comment on above: 1 Each every 2 weeks . DULoxetine 30 mg delayed release oral capsule (20 sources) Serotonin and Norepinephrine Reuptake Inhibitor Start: 10-14-2022 End: 08-11-2024 Cymbalta 30 mg oral delayed release capsule Dose : 30 mg = 1 cap(s), Oral, qDay, 0 Refill(s) Start Date: 02/22/23 Status: Ordered Medication Dispense Status: Completed Total Allowed Fills: 1 Fills Dispensed: 0 Start: 10-06-2015 End: 02-09-2022 Cymbalta 20 mg oral delayed release capsule Dose : 20 mg = 1 cap(s), Oral, qDay Start Date: 11/27/16 Status: Ordered Comment on above: Take 20 mg by mouth. Take 30 mg by mouth once daily. 0.4 ml enoxaparin sodium 100 mg/ml prefilled syringe (20 sources) Low Molecular Weight Heparin Start: 08-16-2024 Start: 08-16-2024 Start: 07-18-2022 End: 01-04-2023 Enoxaparin 40 mg/0.4 mL syri nge Discontinued 40 mg SC DAILY 12 July 18, 2022 1:00am January 04, 2023 2:52pm Start: 07-18-2022 End: 01-04-2023 furosemide 20 mg oral tablet (20 sources) Loop Diuretic Start: 04-05-2019 End: 01-24-2025 take 1 tablet by mouth at breakfast Start: 08-13-2018 End: 01-24-2025 Lasix 20 mg oral tablet Dose : 20 mg = 1 tab(s), Oral, qPM, 0 Refill(s) Start Date: 11/18/23 Status: Ordered Medication Dispense Status: Completed Total Allowed Fills: 1 Fills Dispensed: 0 Start: 08-13-2018 End: 08-28-2018 take 3 tablets by mouth twice daily Furosemide 20 MG tablet Discontinued 60 mg PO TWICE A DAY 30 August 13, 2018 12:00am August 28, 2018 6:17pm Start: 08-13-2018 End: 08-28-2018 take 60 mg [...] 270 cap(s) Start Date: 11/27/16 Status: Ordered Insulin Glargine-Yfgn (2 sources) Start: 08-16-2024 3 ml insulin lispro 100 unt/ml pen injector (20 sources) Insulin Analog Start: 08-16-2024 Start: 08-16-2024 Start: 08-16-2024 Start: 06-12-2024 End: 08-11-2024 Insulin Lispro 100 unit/mL i nsulin pen Discontinued 3 U SC DAILY June 12, 2024 1:00am August 11, 2024 10:25pm sliding scale Start: 06-12-2024 End: 08-11-2024 Start: 09-02-2022 Insulin Lispro (Humalog Kwikpen Insulin) 100 unit/mL insulin pen Active 15 UNIT SC THREE TIMES A DAY September 02, 2022 12:00am [phone] +4 221-260 +6 261-300 8 >300 +10 Start: 01-13-2019 insulin lispro (HUMALOG KWIKPEN) 100 unit/mL Inject subcutaneously. 0 01/13/2019 Active Comment on above: Inject subcutaneousl y. irrigation set (BARD IRRIGATION TRAY MISC) (7 sources) irrigation set ( BARD IRRIGATION TRAY MISC) once every month. Active iv contrast (will be provided with radiology [...] the MR contrast administration guidelines link levoFLOXacin 500 mg oral tablet (9 sources) Quinolone Antimicrobial Start: 03-09-2025 take 1 tablet by mouth once daily Start: 08-20-2021 take 750 mg by mouth once daily Levofloxacin Active 750 MG PO DAILY August 20, 2021 5:18am Start: 03-23-2021 End: 05-05-2021 take 750 mg by mouth once daily Levofloxacin Active 750 MG PO DAILY August 20, 2021 5:18am linezolid 600 mg oral tablet (20 sources) Oxazolidinone Antibacterial Start: 08-16-2024 Start: 07-18-2022 End: 01-04-2023 take 1 tablet by mouth every twelve hours Linezolid 600 mg tablet Discontinued 600 mg PO Q12H 14 0 July 18, 2022 1:00am January 04, 2023 2:53pm Start: 01-19-2015 End: 01-20-2015 take 600 mg by mouth every twelve hours Linezolid In Dextrose 5% 600 MG/300 ML Bag Discontinued 600 mg PO EVERY 12 HOURS 30 0 January 19, 2015 12:00am January 20, 2015 9:52am dont take w/Prozac Start: 01-19-2015 End: 01-20-2015 lisinopril 5 mg oral tablet (20 sources) Angiotensin Converting Enzyme Inhibitor Start: 01-21-2022 Start: 01-29-2021 End: 01-21-2022 take 1 tablet by mouth once daily Lisinopril 5 mg tablet Discontinued 5 mg PO DAILY 90 3 January 29, 2021 12:00am January 21, 2022 2:21pm Start: 01-29-2021 End: 01-21-2022 Start: 11-27-2016 End: 01-29-2021 lisinopril 2.5 mg oral table t Dose : 2.5 mg = 1 tab(s), Oral, qDay, # 30 tab(s) Start Date: 11/27/16 Status: Ordered Medication Dispense Status: Completed Quantity: 30.0 Unit: tab(s) Total Allowed Fills: 1 Fills Dispensed: 0 Comment on above: Take 1 tablet by kelin th once daily. Per Dr. Ermias Salomon loratadine 10 mg oral tablet (20 sources) Start: 08-24-2022 End: 01-24-2025 take 1 tablet by mouth once daily Start: 11-23-2020 take 1 tablet by kelin th once daily loratadine (CLARITIN) 10 mg tablet Indications: Seasonal allergic rhinitis, unspecified trigger Take 1 tablet by mouth once daily. 30 tablet 11 11/23/2020 Active Start: 2019 End: 11-13-2019 take 1 tablet by mouth once daily Loratadine 10 mg tablet Discontinued 10 mg PO DAILY 2019 12:00am November 13, 2019 3:03pm Start: 08-28-2018 End: 11-01-2019 take 1 tablet by mouth once daily Loratadine 10 MG tablet Discontinued 10 mg PO DAILY August 28, 2018 12:00am November 01, 2019 8:59am allergies Comment on above: Take 1 tablet by kelin th once daily. metroNIDAZOLE 500 mg oral tablet (20 sources) Nitroimidazole Antimicrobial Start: 08-16-2024 Start: 07-18-2022 End: 09-01-2022 take 1 tablet by mouth three times daily Metronidazole 500 mg tablet Discontinued 500 mg PO THREE TIMES A DAY July 18, 2022 1:00am September 01, 2022 3:01pm Start: 09-22-2021 metroNIDAZOLE (FLAGYL) 500 mg tablet [...] oral capsule (20 sources) Nitrofuran Antibacterial Start: 11-20-2024 take 1 capsule by mouth every twelve hours Start: 06-09-2024 End: 06-12-2024 take 1 capsule by mouth twice daily Nitrofurantoin Monohyd/M-Cryst 100 mg capsule Discontinued 1 NMA PO TWICE A DAY June 09, 2024 1:00am June 13, 2024 12:49am Start: 06-02-2024 End: 06-16-2024 Start: 02-02-2023 End: 08-13-2023 take 1 capsule by mouth every twelve hours Nitrofurantoin Monohyd/M-Cryst 100 mg capsule Discontinued 100 mg PO EVERY 12 HOURS 14 0 February 02, 2023 12:00am August 13, 2023 8:20pm Start: 11-15-2015 End: 11-18-2015 take 1 capsule by mouth every twelve hours Nitrofurantoin Monohyd/M-Cryst 100 MG capsule Discontinued 100 mg PO EVERY 12 HOURS 14 0 November 15, 2015 12:00am November 18, 2015 1:49pm omeprazole 20 mg delayed release oral capsule (20 sources) Proton Pump Inhibitor Start: 04-01-2024 End: 07-23-2025 take 1 capsule by mouth once daily ondansetron 4 mg disintegrating oral tablet (20 sources) Serotonin-3 Receptor Antagonist Start: 04-06-2025 End: 04-09-2025 ondansetron 4 mg oral tablet, disintegrating Dose : 4 mg = 1 tab(s), Oral, q6h, PRN Nausea/Vomiting, X 3 day(s), # 20 tab(s), 0 Refill(s), 04/09/25 6:26:00 PM EST Start Date: 04/06/25 Stop Date: 04/09/25 Status: Ordered Medication Dispense Status: Completed Quantity: 20.0 Unit: tab(s) Total Allowed Fills: 1 Fills Dispensed: 0 Start: 11-07-2023 End: 02-03-2025 take 1 tablet by mouth every eight hours as needed for nausea Start: 11-22-2022 End: 11-27-2022 Zofran 4 mg oral tablet Dose : 4 mg = 1 tab(s), Oral, q8h, X 5 day(s), # 15 tab(s), 0 Refill(s), 11/27/22 2:26:00 EDT, UTI - Urinary tract infection Start Date: 11/22/22 Stop Date: 11/27/22 Status: Ordered Start: 03-22-2022 End: 06-09-2024 take 1 tablet by mouth every six hours as needed for nausea and vomiting Ondansetron 4 mg tablet,disintegrating Discontinued 4 mg PO EVERY 6 HOURS as needed for nausea and vomiting 7 March 22, 2022 12:00am June 09, 2024 2:08am Start: 08-20-2021 take 4 mg by mouth e very six hours Ondansetron Active 4 MG PO EVERY 6 HOURS August 20, 2021 12:00am Start: 2019 End: 11-13-2019 take 1 tablet by mouth once as needed Ondansetron 8 mg tablet,disintegrating Discontinued 8 mg PO ONCE as needed 2019 12:00am November 13, 2019 3:03pm Start: 05-24-2019 End: 11-01-2019 take 1 tablet by mouth every eight hours as needed for nausea Ondansetron 4 MG tablet Discontinued 4 mg PO EVERY 8 HOURS NEEDED as needed for Nausea May 24, 2019 1:00am November 01, 2019 8:59am Start: 11-19-2016 End: 11-13-2019 take 1 tablet by mouth every eight hours as needed ondansetron orally disintegrating (ZOFRAN ODT) 8 mg disintegrating tablet Take 8 mg by mouth every 8 hours as needed for nausea/vomiting. 11/19/2016 Active Comment on above: 8 mg as needed. 24 hr oxybutynin chloride 15 mg extended release oral tablet (20 sources) Cholinergic Muscarinic Antagonist Start: take 1 tablet by mouth every hour, then take 1 tablet by mouth once daily in the evening oxybutynin 15 mg/24 hr oral tablet, extended release Dose : 15 mg = 1 tab(s), Oral, qPM Start Date: 04/25/22 Status: Ordered Medication Dispense Status: Completed Total Allowed Fills: 1 Fills Dispensed: 0 Start: 04-05-2019 End: 09-28-2023 take 1 tablet by mouth once daily Start: 04-05-2019 End: 2019 take 1 tablet [...] tablet (20 sources) Opioid Agonist Start: 08-16-2024 take 1 tablet by mouth every four hours as needed for pain Start: 10-06-2022 End: 01-04-2023 take 1 tablet by mouth every six hours as needed for pain Oxycodone 5 mg tablet Discontinued 5 mg PO EVERY 6 HOURS as needed for pain 10 3 0 October 06, 2022 January 04, 2023 2:54pm Contusion of left lower extremity Contusion of left lower leg, initial encounter Start: 07-18-2022 End: 09-01-2022 take 1 tablet by mouth every four hours as needed for pain Oxycodone 5 mg Tablet Discontinued 5 mg PO EVERY 4 HOURS NEEDED as needed for Pain Score 4-10 12 3 0 July 18, 2022 September 01, 2022 3:01pm Osteomyelitis of left foot Osteomyelitis, unspecified Start: 02-19-2020 End: 02-26-2020 take 1 tablet by mouth every four hours as needed for pain Oxycodone 5 MG tablet Discontinued 5 mg PO EVERY 4 HOURS NEEDED as needed for Pain Score 4-10/10 30 7 0 February 19, 2020 February 25, 2020 12:00am February 26, 2020 12:02am Diabetic foot infection Cellulitis Type 2 diabetes mellitus with other skin complications Local infection of the skin and subcutaneous tissue, unspecified Start: 01-15-2020 End: 01-18-2020 take 1 tablet by mouth every six hours as needed for pain Oxycodone 5 MG tablet Discontinued 5 mg PO EVERY 6 HOURS as needed for Pain Score 6-10/10 12 3 0 January 15, 2020 January 17, 2020 12:00am January 18, 2020 12:02am Cellulitis of left lower extremity Cellulitis of left lower limb Start: 09-04-2018 End: 09-11-2018 take 5-10 mg by mouth every four hours as needed for pain Oxycodone 5 MG tablet Discontinued 5 - 10 mg PO EVERY 4 HOURS NEEDED as needed for Mod-Severe Pain (4-10/10) 25 7 0 September 04, 2018 12:00am September 10, 2018 12:00am September 11, 2018 12:09am Pressure injury of skin of heel Pressure ulcer of unspecified heel, unspecified stage predniSONE 20 mg oral tablet (3 sources) Start: 07-07-2021 take 60 mg by mouth once daily Prednisone Active 60 MG PO DAILY 18 6 July 07, 2021 11:37pm pregabalin 75 mg oral capsule (20 sources) Start: 05-02-2023 End: 01-05-2025 pregabalin 75 mg oral capsule Dose : 75 mg = 1 cap(s), Oral, BID, 100 Start Date: 07/15/23 Status: Ordered Medication Dispense Status: Completed Total Allowed Fills: 1 Fills Dispensed: 0 Comment on above: Take 1 capsule by [facility] two times a day for 90 days. promethazine hydrochloride 25 mg oral tablet (20 sources) Phenothiazine Start: 07-31-2024 take 1 tablet by mouth three times daily as needed for nausea and vomiting Start: 07-09-2019 End: 2019 take 1 tablet by mouth every six hours as needed for nausea Promethazine 25 MG tablet Discontinued 25 mg PO EVERY 6 HOURS NEEDED as needed for Nausea 10 0 July 09, 2019 1:00am 2019 11:06am Start: 12-18-2017 End: 01-18-2018 take 1 tablet by mouth every six hours as needed for nausea Promethazine 25 MG tablet Discontinued 25 mg PO EVERY 6 HOURS NEEDED as needed for Nausea 10 0 December 18, 2017 12:00am January 18, 2018 2:24pm propranolol hydrochloride 20 mg oral tablet (20 sources) beta-Adrenergic Pan Start: 06-05-2022 End: 06-05-2022 propranolol Start: 06/05/22 9:00:00 EST, Dose = 10 mg, = 0.5 tab(s), Oral, 0, 06/05/22 1:39:00 EST Start Date: 06/05/22 Stop Date: 06/05/22 Status: Completed Start: 11-23-2020 End: 09-28-2023 take 1 tablet by mouth twice daily Start: 01-13-2020 End: 01-21-2022 take 1 tablet by mouth twice daily Propranolol 10 MG tablet Discontinued 10 mg PO TWICE A DAY January 13, 2020 12:00am January 21, 2022 2:21pm heart Start: 01-13-2020 End: 01-21-2022 Start: 11-01-2019 End: 2019 take 2 tablets by mouth twice daily Propranolol 10 mg tablet Discontinued 20 mg PO TWICE A DAY November 01, 2019 8:58am 2019 11:00am Start: 11-01-2019 End: 2019 take 20 mg by mouth twice daily Propranolol Discontinu ed 20 MG PO TWICE A DAY November 01, 2019 8:58am 2019 11:00am Start: 08-28-2018 End: 2019 take 1 tablet by mouth twice daily Propranolol 10 MG tablet Discontinued 10 mg PO TWICE A DAY August 28, 2018 12:00am November 01, 2019 9:00am Comment on above: Take 1 tablet by kelin th twice daily. Take 1 tablet by kelin th two times a day. sodium chloride 0.154 meq/ml irrigation solution (20 sources) Start: 07-31-19 End: 12-04-19 sodium chloride irrig solution (NACL 0.9% IRRIGATION BOTTLE) Indications: Neurogenic bladder , Suprapubic catheter (HCC) To use for catheter irrigation daily or as needed. 1000 mL 12/03/2024 Active Comment on above: To use for catheter irrigation daily or as needed. sulfamethoxazole 800 mg / trimethoprim 160 mg oral tablet (20 sources) Dihydrofolate Reductase Inhibitor Antibacterial, Sulfonamide Antimicrobial Start: 01-08-20 End: 01-18-20 take 1 tablet by mouth twice daily Bactrim DS 800 mg-160 mg oral tablet Dose = 1 tab(s), Oral, BID, Take with a probiotic, X 10 day(s), # 20 tab(s), 0 Refill(s), 99 Start Date: 01/07/25 Stop Date: 01/17/25 Status: Ordered Medication Dispense Status: Completed Quantity: 20.0 Unit: tab(s) Total Allowed Fills: 1 Fills Dispensed: 0 Start: 12-14-2024 End: 12-28-2024 take 1 tablet by mouth twice daily Bactrim DS 800 mg-160 mg oral tablet Dose = 1 tab(s), Oral, BID, Take with a probiotic, X 14 day(s), # 28 tab(s), 0 Refill(s), 99 Start Date: 12/14/24 Stop Date: 12/28/24 Status: Ordered Quantity: 28.0 Unit: tab(s) Repeat number: 1 Start: 07-31-2024 End: 08-11-2024 Sulfamethoxazole-Trimethopri m (Bactrim Ds) 800-160 mg tablet Discontinued 1 {tbl} PO TWICE A DAY 20 10 July 31, 2024 1:00am August 11, 2024 10:24pm Start: 07-31-2024 End: 08-11-2024 Start: 11-07-2023 End: 06-09-2024 Sulfamethoxazole-Trimethopri m (Bactrim Ds) 800-160 mg tablet Discontinued 1 {tbl} PO TWICE A DAY 14 7 February 10, 2024 12:00am June 09, 2024 2:09am Start: 04-21-2023 End: 08-13-2023 Sulfamethoxazole-Trimethopri m (Bactrim Ds) 800-160 mg tablet Discontinued 1 {tbl} PO TWICE A DAY 20 10 April 21, 2023 1:00am August 13, 2023 8:20pm Start: 04-21-2023 End: 06-09-2024 Start: 07-18-2022 End: 01-04-2023 Sulfamethoxazole-Trimethopri m (Bactrim Ds) 800-160 mg tablet Discontinued 1 {tbl} PO TWICE A DAY 14 7 August 19, 2022 12:00am January 04, 2023 2:54pm Start: 07-18-2022 End: 01-04-2023 Start: 04-27-2022 End: 05-07-2022 take 1 tablet by mouth every twelve hours Bactrim DS 800 mg-160 mg oral tablet 369.6 mg, Oral, q12h, Dosage expressed as trimethoprim, X 10 day(s), # 20 tab(s), 0 Refill(s), Pharmacy: [facility] #30, 154.94, cm, 04/24/22 5:33:00 EST, Height, [...] 06/04/19 Status: Ordered Start: 12-13-2013 End: 12-19-2013 Sulfamethoxazole-Trimethopri m 1 TABLET tablet Discontinued 2 {tbl} PO TWICE A DAY 38 0 December 13, 2013 12:00am December 19, 2013 10:54am Start: 12-13-2013 End: 12-19-2013 Start: 12-13-2013 End: 12-19-2013 take 2 tablets by mouth twice daily Sulfamethoxazole-Trimethoprim Discontinued 2 TABLET PO TWICE A DAY 38 December 13, 2013 12:00am December 19, 2013 10:54am Comment on above: Take 1 tablet by kelin th every 12 hours. topiramate 25 mg oral tablet (15 sources) [...] tablet (20 sources) Serotonin Reuptake Inhibitor Start: 11-23-2020 End: 04-10-2024 traZODone 100 mg oral tablet Dose : 100 mg = 1 tab(s), Oral, qHS Start Date: 07/15/23 Status: Ordered Medication Dispense Status: Completed Total Allowed Fills: 1 Fills Dispensed: 0 Start: 07-08-2019 End: 02-19-2020 take 1 tablet by mouth at bedtime Trazodone 50 MG tablet Discontinued 50 mg PO AT BEDTIME July 08, 2019 1:00am February 19, 2020 7:55am sleep Start: 07-08-2019 End: 02-19-2020 Start: 04-17-2013 End: 10-15-2013 take 1 tablet by mouth at bedtime Trazodone 100 MG tablet Discontinued 100 mg PO AT BEDTIME April 17, 2013 1:00am October 15, 2013 12:45pm Comment on above: Take 1 tablet by kelin th daily at bedtime. Urinary Bag (URINARY LEG BAG) kit (20 sources) Start: 12-03-2024 Urinary Bag (URINARY LEG BAG) kit Indications: Neurogenic bladder , Suprapubic catheter (HCC) Use as directed with suprapublic catheter. 4 kit 11 12/03/2024 Active Start: 09-20-2024 End: 12-03-2024 Urinary Bag (URINARY LEG BAG ) kit Indications: Neurogenic bladder , Suprapubic catheter (HCC) Use as directed with suprapublic catheter. 4 kit 11 09/20/2024 12/03/2024 Discontinued (Availability) Start: 09-20-2024 Urinary Bag (U RINARY LEG BAG) kit [...] 09-20-2024 Urinary Bag (U ROSTOMY NIGHT BAG) [facility] Indications: Neurogenic bladder , Suprapubic catheter (HCC) Urinary Night Bag. Use as directed with suprapublic catheter. 4 each 11 09/20/2024 Active Start: 12-11-2023 Urinary Bag (U ROSTOMY NIGHT BAG) [facility] Indications: Neurogenic bladder , Suprapubic catheter (HCC) Urinary Night Bag. Use as directed with suprapublic catheter. 4 Each 11 12/11/2023 Active divalproex sodium 500 mg delayed release oral tablet (20 sources) Mood Stabilizer, Anti-epileptic Agent Start: 08-11-2024 take 1 tablet by mouth at bedtime Start: 08-11-2024 Start: 07-09-2024 End: 01-24-[address] (DEPAKOTE) 500 mg EC tablet take 2 at bed for 5 days then 1 at bed for 5 days and stop. 15 tablet 07/09/2024 01/24/2025 Discontinued (Course of therapy completed) (15 sources) Start: 08-16-2024 Start: 09-01-2022 Start: 03-05-2021 Start: 04-17-2013 End: 06-17-2013 Completed/Discontinued Medications Medication Drug Class(es) Dates Sig (Normalized) Sig (Original) amoxicillin 500 mg oral capsule (14 sources) [...] sources) Penicillin-class Antibacterial Start: 11-22-2021 End: 02-09-2022 Amoxicillin-Pot Clavulanate 875-125 mg tablet Discontinued 1 {tbl} PO TWICE A DAY 14 0 November 22, 2021 12:00am January 13, 2022 11:37am Start: 06-28-2021 take 1 tablet by kelin th every twelve hours Amoxicillin-Pot Clavulanate Active 1 TABLET PO Q12H June 28, 2021 2:37am Start: 09-04-2018 End: 09-09-2018 take 1 tablet by mouth twice daily Amoxicillin-Pot Clavulanate 875 MG tablet Discontinued 875 mg PO TWICE A DAY 10 5 0 September 04, 2018 12:00am September 08, 2018 12:00am September 09, 2018 12:10am Start: 12-16-2017 End: 01-18-2018 take 1 tablet by mouth every twelve hours Amoxicillin-Pot Clavulanate 875 MG tablet Discontinued 875 mg PO Q12H 20 December 16, 2017 12:00am January 18, 2018 2:23pm Start: 12-16-2017 End: 01-18-2018 Comment on above: Take 1 tablet by kelin th twice daily. Anxiety Med (20 sources) Start: 04-17-2013 End: 06-17-2013 Anxiety Med Discontinued April 17, 2013 4:44pm June 17, 2013 9:57pm Start: 04-17-2013 End: 06-17-2013 Anxiety Med Discontinued Mar 12:00am June 17, 2013 8:57pm Start: 04-17-2013 End: 06-17-2013 Anxiety Med Discontinued Mar 1:00am June 17, 2013 9:57pm aztreonam 1000 mg injection (5 sources) Monobactam Antibacterial Start: 02-25-2023 Azactam 1 g injectio n Dose : 1 gram(s) =, Intramuscular, q8hr, 0 Refill(s), 97.9 Start Date: 02/25/23 Status: Ordered Benzocaine (1 source) Standardized Chemical Allergen Start: 03-25-2024 End: 03-25-2024 1 [place], TOPICAL, DIRECTED, Starting on Mon03/25/24 at 0900, [...] DM Code E13.29 Blood-Glucose Meter,Continuous (DEXCOM G7 ROTARY CUTTER OPERATOR) misc (2 sources) Start: End: Blood-Glucose Meter,Continuous (DEXCOM G7 ROTARY CUTTER OPERATOR) misc DISPENSE ONE ROTARY CUTTER OPERATOR KIT. USE FOR CONTINUOUS GLUCOSE MONITORING. MULTIPLE INSULIN INJECTIONS. E11.9 1 Each 0 12/06/2023 12/06/2023 Discontinued Blood-Glucose Sensor (DEXCOM G7 SENSOR) tara (2 sources) Start: End: 07-10-2 024 Blood-Glucose Sensor (DEXCOM G7 SENSOR) tara CHANGE [...] capsule (20 sources) Cephalosporin Antibacterial Start: End: take 2 capsules by mouth twice daily Cefadroxil 500 MG capsule Discontinued 1000 mg PO TWICE A DAY 40 10 0 April 07, 2019 1:00am April 16, 2019 1:00am April 17, 2019 1:07am Start: 04-07-2019 End: 04-17-2019 Start: 02-17-2015 End: 02-28-2015 take 1 capsule by mouth twice daily Cefadroxil 500 MG capsule Discontinued 500 mg PO TWICE A DAY 26 0 February 17, 2015 12:00am February 28, 2015 3:42pm Start: 02-17-2015 End: 02-28-2015 ciprofloxacin 500 mg oral tablet (20 sources) Quinolone Antimicrobial Start: 02-10-2024 End: 06-09-2024 take 1 tablet by mouth every twelve hours Ciprofloxacin Hcl 500 mg tablet Discontinued 500 mg PO Q12H February 10, 2024 12:00am June 09, 2024 2:07am Start: 02-03-2024 End: 08-11-2024 take 1 tablet by mouth twice daily Ciprofloxacin Hcl 500 mg tablet Discontinued 500 mg PO TWICE A DAY 14 0 June 09, 2024 1:00am August 11, 2024 10:22pm Start: 08-13-2023 End: 10-07-2023 take 1 tablet by mouth twice daily Ciprofloxacin Hcl (Cipro) 500 mg tablet Discontinued 500 mg PO TWICE A DAY 14 7 0 August 13, 2023 12:00am October 07, 2023 2:02pm Start: 07-20-2023 End: 07-27-2023 ciprofloxacin 500 mg oral ta blet Dose : 500 mg = 1 tab(s), Oral, q12h, X 7 day(s), # 14 tab(s), 0 Refill(s), 07/27/23 1:20:00 AM EST, 97.7 Start Date: 07/20/23 Stop Date: 07/27/23 Status: Ordered Start: 08-16-2022 End: 01-04-2023 take 1 tablet by mouth twice daily Ciprofloxacin Hcl 500 mg tablet Discontinued 500 mg PO TWICE A DAY 14 December 12, 2022 12:00am January 04, 2023 2:52pm Start: 04-11-2022 End: 07-18-2022 take 1 tablet by mouth twice daily Ciprofloxacin Hcl 750 mg tablet Discontinued 750 mg PO TWICE A DAY 20 April 11, 2022 1:00am July 18, 2022 1:10pm Start: 03-28-2016 End: 04-03-2016 take 1 tablet by mouth twice daily Ciprofloxacin Hcl 500 MG tablet Discontinued 500 mg PO TWICE A DAY 14 March 28, 2016 12:00am April 03, 2016 11:12am clindamycin 300 mg oral capsule (20 sources) Lincosamide Antibacterial Start: 04-11-2022 End: 07-18-2022 take 1 capsule by mouth four times daily Clindamycin Hcl 300 mg capsule Discontinued 300 mg PO 4 TIMES DAILY 40 10 April 11, 2022 1:00am July 18, 2022 1:10pm Start: 03-22-2022 End: 04-01-2022 clindamycin 150 mg [...] Active Start: 06-28-2021 take 1 capsule by [facility] every six hours Clindamycin Hcl (Cleocin Hcl) 300 MG capsule Active 300 MG PO EVERY 6 HOURS 40 June 28, 2021 2:12pm Start: 12-20-2017 End: 01-18-2018 take 1 capsule by mouth four times daily Clindamycin Hcl 300 MG capsule Discontinued 300 mg PO 4 TIMES DAILY 30 December 20, 2017 12:00am January 18, 2018 2:23pm Comment on above: Take 1 capsule by [facility] four times daily for 10 days. dicyclomine hydrochloride 20 mg oral tablet (3 sources) Anticholinergic Start: End: dicyclomine 20 mg oral tablet Dose : 20 mg = 1 tab(s), Oral, QID, PRN abdominal discomfort, # 28 tab(s), 0 Refill(s) Start Date: 12/28/18 Stop Date: 01/04/19 Status: Ordered diphenhydrAMINE (1 source) Histamine-1 Receptor Antagonist Start: End: 12.5-50 mg, INTRAVENOUS, DIRECTED, Starting on Mon03/25/24 at 0900, Until Mon03/25/24 at 1259, DOSING DIRECTED BY PHYSICIAN FOR PROCEDURAL SEDATION ONLY, Intraprocedure doxycycline monohydrate 100 mg oral capsule (20 sources) Tetracycline-class Drug Start: End: take 1 capsule by mouth twice daily Doxycycline Monohydrate 100 mg capsule Discontinued 100 mg PO TWICE A DAY 14 February 02, 2023 12:00am August 13, 2023 8:19pm Start: 08-16-2022 take 100 mg by mouth [...] of therapy completed) Start: 11-15-2021 End: 11-22-2021 take 1 tablet by mouth twice daily Doxycycline Monohydrate 100 mg tablet Discontinued 100 mg PO TWICE A DAY 20 10 0 November 15, 2021 12:00am November 22, 2021 11:10am Start: 10-02-2019 End: 2019 take 1 capsule by mouth twice daily Doxycycline Hyclate 100 MG capsule Discontinued 100 mg PO TWICE A DAY 20 0 October 02, 2019 12:00am 2019 11:06am Start: 09-04-2018 End: 09-09-2018 take 1 capsule by mouth twice daily Doxycycline Monohydrate 100 MG capsule Discontinued 100 mg PO TWICE A DAY 10 5 0 September 04, 2018 12:00am September 08, 2018 12:00am September 09, 2018 12:10am Comment on above: TWICE A DAY ertapenem 1000 mg injection (4 sources) Penem Antibacterial Start: 12-23-19 ertapenem (INVANZ) 1 g in NaCl 0.9% 100 mL Indications: Pyelonephritis Inject 100 mL intravenously every 24 hours for 10 days. 1000 mL 0 12/22/2022 Active Comment on above: Inject 100 mL intrav enously every 24 hours for 10 days. 1 ml fentaNYL 0.05 mg/ml injection (1 source) Opioid Agonist Start: 03-25-20 24 End: 03-25-20 25-100 mcg, INTRAVENOUS, DIRECTED, Starting on Mon03/25/24 at 0900, Until Mon03/25/24 at 1259, DOSING DIRECTED BY PHYSICIAN FOR PROCEDURAL SEDATION ONLY, Intraprocedure FLUoxetine 20 mg oral capsule (20 sources) Serotonin Reuptake Inhibitor Start: 07-20-19 14 End: 10-16-19 14 take 3 capsules by mouth once daily Fluoxetine 20 MG capsule Discontinued 60 mg PO DAILY July 20, 2013 1:00am October 15, 2013 12:44pm Start: 07-20-2013 End: 10-15-2013 Start: 04-17-2013 End: 06-17-2013 take 3 capsules by mouth once daily Fluoxetine 20 MG capsule Discontinued 60 mg PO DAILY April 17, 2013 1:00am June 17, 2013 9:57pm Start: 04-17-2013 End: 06-17-2013 fluticasone propionate 0.05 mg/actuat metered dose nasal spray (20 sources) Corticosteroid Start: 2019 End: 11-13-2019 take 50 ug nasal route once daily Fluticasone Propionate (Allergy Relief (Fluticasone)) 50 mcg/actuation spray,suspension Discontinued 2 NMA INTRANASAL DAILY 2019 12:00am November 13, 2019 3:04pm administer into each nostril Start: 2019 End: 11-13-2019 take 1 spray(s) nasal route once daily Fluticasone Propionate (Allergy Relief (Fluticasone)) 50 mcg/actuation spray,suspension Discontinued 2 SPRAY INTRANASAL DAILY 2019 12:00am November 13, 2019 3:04pm administer into each nostril Start: 02-21-2019 take 2 spray(s) by [facility] once daily fluticasone (FLONASE) 50 mcg/actuation nasal spray Indications: Seasonal allergic rhinitis, unspecified trigger Use 2 Sprays in each nostril once daily. Rinse mouth after use. 1 Bottle 3 02/21/2019 Active Comment on above: Use 2 Sprays in each nostril once daily. Rinse mouth after use. glimepiride 2 mg oral tablet (20 sources) Sulfonylurea Start: 1 End: 4 take 1 tablet by mouth twice daily Glimepiride 2 mg tablet Discontinued 2 mg PO TWICE A DAY 180 3 January 21, 2022 2:21pm February 10, 2024 1:21am Hold if glucose less than 130 mg/dl Start: 11-07-2017 End: 01-18-2018 take 1 tablet by mouth once daily Glimepiride 4 MG tablet Discontinued 4 mg PO DAILY November 07, 2017 12:00am January 18, 2018 2:23pm Comment on above: Take 1 tablet by [facility] twice daily with meals. Per Endo: Dr. Monson hydroCHLOROthiazide 12.5 mg oral capsule (20 sources) Thiazide Diuretic Start: 2013 End: 2013 take 1 capsule by mouth once daily Hydrochlorothiazide 12.5 MG capsule Discontinued 12.5 mg PO DAILY July 20, 2013 1:00am October 15, 2013 12:45pm 3 ml insulin aspart, human 100 unt/ml pen injector (20 sources) Insulin Analog Start: 2023 End: 2024 Start: 12-06-2023 End: 08-16-2024 Insulin Aspart (Niacinamide) (Fiasp Flextouch U-100 Insulin) 100 unit/mL (3 mL) insulin pen Discontinued 0 SC THREE TIMES A DAY February 10, 2024 12:00am August 16, 2024 2:49pm Glucose control Inject 20 units with meals (three times daily) PLUS SS#2 (2 units for every 50 over 150 PRE MEAL blood sugar) [id number] units daily Start: 09-01-2022 End: 09-02-2022 Insulin Aspart (Niacinamide) 100 unit/mL (3 mL) insulin pen Discontinued 15 U SC THREE TIMES A DAY as needed for Hyperglycemia 45 1 September 01, 2022 3:11pm September 02, 2022 8:35am 180-220 +4 221-260 +6 261-300 8 >300 +10 Start: 04-24-2022 Fiasp FlexTouc h 100 units/mL injectable solution See Instructions, Sliding scale TIDAC, 0 Refill(s) Start Date: 04/25/22 Status: Ordered Medication Dispense Status: Completed Total Allowed Fills: 1 Fills Dispensed: 0 Start: 01-29-2021 End: 12-06-2023 Insulin Aspart (Niacinamide) 100 unit/mL (3 mL) insulin pen Discontinued 0 - 100 mL SC NEEDED as needed for Hyperglycemia January 29, 2021 12:00am September 01, 2022 3:13pm 15 PLUS SLIDING SCALE. Comment on above: Inject 18 Units subc utaneously three times daily before meals. (Includes SS # 2 QAC -> Per Dr. Ermias Salomon) MAX TDD = 55 UNITS / DAY. E11.65 3 ml insulin glargine 100 unt/ml pen injector (20 sources) Insulin Analog Start: 08-11-2024 End: 08-16-2024 Insulin Glargine (Lantus Solostar U-100 Insulin) 100 unit/mL (3 mL) insulin pen Discontinued 40 U SC AT BEDTIME August 11, 2024 12:00am August 16, 2024 2:49pm dm Start: 12-06-2023 insulin glargi ne (LANTUS SOLOSTAR U-100 INSULIN) 100 unit/mL (3 mL) Indications: Diabetes mellitus type 2 with ketoacidosis, uncontrolled (HCC) Inject 40 units once daily 39 mL 3 12/06/2023 Active Start: 02-25-2023 inject 1 dose by sub cutaneous injection once daily at bedtime Lantus 100 units/mL10 ml vial solution Dose : 33 unit(s) =, Subcutaneous, qHS, 0 Refill(s) Start Date: 02/25/23 Status: Ordered Medication Dispense Status: Completed Total Allowed Fills: 1 Fills Dispensed: 0 Start: 07-13-2022 End: 08-11-2024 Insulin Glargine (Lantus Michelle ostar U-100 Insulin) 100 unit/mL (3 mL) insulin pen Discontinued 33 U SC AT BEDTIME 30 September 01, 2022 3:10pm August 11, 2024 10:25pm dm Start: 04-24-2022 inject 1 dose by sub [...] unit/mL (3 mL) insulin pen Discontinued 25 U SC AT BEDTIME 15 0 January 21, 2022 2:21pm July 13, 2022 1:57am dm Hold if glucose less than 130 mg/dl Start: 11-01-2019 End: 01-21-2022 Insulin Glargine (Lantus Michelle ostar U-100 Insulin) 100 unit/mL (3 mL) insulin pen Discontinued 30 U SC AT BEDTIME November 01, 2019 12:00am January 21, 2022 2:21pm dm Start: 11-01-2019 End: 08-16-2024 Start: 11-01-2019 Insulin Glargi ne (Lantus Solostar U-100 Insulin) 100 unit/mL (3 mL) insulin pen Active 33 UNIT SC AT BEDTIME November 01, 2019 12:00am Comment on above: Inject 33 Units subc utaneously daily at bedtime. E11.65 insulin lispro (HUMALOG KWIKPEN) 100 unit/mL (7 sources) Start: 01-13-2019 insulin lispro (HUMALOG KWIKPEN) 100 unit/mL Inject subcutaneously. 0 01/13/2019 Active Comment on above: Inject subcutaneousl y. 3 ml liraglutide 6 mg/ml pen injector (20 sources) GLP-1 Receptor Agonist Start: 12-27-2018 Victoza 18 mg/3 mL subcutaneous Pen 0 Refill(s) Start Date: 12/27/18 Status: Ordered Start: 07-03-2018 End: 01-13-2019 Liraglutide (Victoza 2-Kneneth) 0.6 MG/0.1 ML Pen.Injctr Discontinued 1.2 mg SQ DAILY July 03, 2018 1:00am January 13, 2019 7:43am diabetes 18mg/3ml diabetes Start: 07-03-2018 End: 11-01-2019 inject 1.8 mg by subcutaneous injection once daily Liraglutide 0.6 MG/0.1 pen injector Discontinued 1.8 mg SQ DAILY February 26, 2019 12:00am November 01, 2019 8:57am magnesium hydroxide 80 mg/ml oral suspension (20 [...] (20 sources) Biguanide Start: 2019 End: 11-13-2019 Metformin 500 mg tablet extended release 24 hr Discontinued 1000 mg PO TWICE A DAY 2019 12:00am November 13, 2019 3:03pm Start: 2019 End: 11-13-2019 Start: 02-18-2019 End: 11-01-2019 take 1 tablet by mouth twice daily Metformin 1000 MG tablet Discontinued 1000 mg PO TWICE A DAY February 18, 2019 12:00am November 01, 2019 8:59am Start: 11-27-2016 metFORMIN 500 mg oral tablet Dose : 500 mg = 1 tab(s), Oral, BID, # 180 tab(s) Start Date: 11/27/16 Status: Ordered Start: 06-19-2016 End: 01-13-2019 take 2 tablets by mouth twice daily Metformin 500 MG tablet Discontinued 1000 mg PO TWICE A DAY June 19, 2016 9:32pm January 13, 2019 7:43am DIABETES Start: 06-01-2016 End: 06-19-2016 take 2 tablets by mouth once daily Metformin 500 MG tablet Discontinued 1000 mg PO DAILY 0 0 June 01, 2016 12:45pm June 19, 2016 9:32pm Start: 06-01-2016 End: 06-19-2016 take 1000 mg by mouth once daily Metformin Discontinued 1000 MG PO DAILY 0 June 01, 2016 12:45pm June 19, 2016 9:32pm Start: 02-14-2015 End: 06-01-2016 take 1 tablet by mouth once daily Metformin 500 MG tablet Discontinued 500 mg PO DAILY February 14, 2015 12:00am June 01, 2016 12:45pm Start: 02-14-2015 End: 01-13-2019 5 ml midazolam 1 mg/ml injection (1 source) Benzodiazepine Start: 03-25-2024 End: 03-25-2024 1-5 mg, INTRAVENOUS, DIRECTED, Starting on Mon03/25/24 at 0900, Until Mon03/25/24 at 1259, DOSING DIRECTED BY PHYSICIAN FOR PROCEDURAL SEDATION ONLY, Intraprocedure naproxen 500 mg oral tablet (20 sources) Nonsteroidal Anti-inflammatory Drug Start: 01-05-2020 End: 01-13-2020 take 1 tablet by mouth twice daily as needed Naproxen 500 MG tablet Discontinued 500 mg PO TWICE DAILY NEEDED January 05, 2020 12:00am January 13, 2020 8:01pm Start: 06-04-2019 take 1 tablet by kelin th every twelve hours as needed for pain [...] on above: Take 2 tablets by mo ut at 9pm and take 2 tablets by mouth at 11pm the night before surgery. phenazopyridine hydrochloride 200 mg oral tablet (20 sources) Start: 2019 End: 11-13-2019 take 1 tablet by mouth three times daily as needed Phenazopyridine (Pyridium) 100 mg tablet Discontinued 100 mg PO THREE TIMES A DAY as needed 2019 12:00am November 13, 2019 3:03pm Start: 12-27-2018 End: 11-07-2023 take 1 tablet by mouth twice daily as needed for pain Phenazopyridine (Pyridium) 200 mg tablet Discontinued 200 mg PO TWICE DAILY NEEDED as needed for Pain 10 5 0 April 21, 2023 1:00am August 13, 2023 8:20pm Start: 12-27-2018 take 1 tablet by kelin every eight hours as needed for muscle spasms phenazopyridine 200 mg oral tablet TAKE 1 TABLET EVERY 8 HOURS NEEDED FOR BLADDER spasms Start Date: 12/27/18 Status: Ordered Comment on above: TWICE DAILY NEEDE D polyethylene glycol 3350 10183 mg powder for oral solution (20 sources) Osmotic Laxative Start: 04-12-20 End: 04-13-20 18 take 17 g by mouth once daily Polyethylene Glycol 3350 17 GM Packet Discontinued 17 g PO DAILY 1 0 April 12, 2018 1:00am April 13, 2018 7:48pm over the counter polyethylene glycol 3350 660662 mg / potassium chloride 2970 mg / sodium bicarbonate 6740 mg / sodium chloride 5860 mg / sodium sulfate 56753 mg powder for oral solution (20 sources) Osmotic Laxative Start: 04-13-20 End: 04-27-20 18 take 17 g by mouth once daily Peg 3350-Electrolytes 4,000 ML recon soln Discontinued 17 g PO DAILY 1 14 0 April 13, 2018 1:00am April 26, 2018 1:00am April 27, 2018 1:17am pseudoephedrine hydrochloride 30 mg oral capsule (20 sources) alpha-Adrenergic Agonist Start: 11-12-19 End: 11-13-19 take 1 capsule by mouth once as needed Pseudoephedrine Hcl (Nasal Decongestant (Pseudoeph)) 30 mg capsule (abuse-resistant) Discontinued 30 mg PO ONCE as needed 2019 12:00am November 13, 2019 3:04pm Start: 2019 End: 11-13-2019 Start: 01-21-2018 End: 11-01-2019 take 1 tablet by mouth every six hours as needed for congestion Pseudoephedrine Hcl 30 MG tablet Discontinued 30 mg PO EVERY 6 HOURS NEEDED as needed for Congestion January 21, 2018 12:00am November 01, 2019 8:58am Comment on above: Take 30 mg by mouth as needed. psyllium 400 mg oral capsule (20 sources) Start: 2019 End: 11-13-2019 Psyllium Husk (Fiber (Psyllium Husk)) 0.4 gram capsule Discontinued 0.4 g PO DAILY 2019 12:00am November 13, 2019 3:04pm Start: 04-05-2019 End: 11-01-2019 Psyllium Husk 660 GM powder Discontinued 15 mL PO NEEDED as needed for Constipation April 05, 2019 1:00am November 01, 2019 8:58am Start: 04-05-2019 End: 11-01-2019 Start: 04-05-2019 End: [...] above: Take by mouth as nee ded. vancomycin 250 mg oral capsule (7 sources) Glycopeptide Antibacterial Start: 4 End: 4 take 1 capsule by mouth four times daily vancomycin (VANCOCIN) 250 mg capsule Take 250 mg by mouth four times daily. 0 11/22/2023 12/06/2023 Start: 11-22-2023 End: 12-06-2023 take 1 dose by mouth four times daily vancomycin 25 mg/mL ORAL solution Dose : 125 mg = 5 mL, Oral, QID, X 14 day(s), # 280 mL, 0 Refill(s), 12/06/23 10:52:00 AM EDT, Pharmacy: [facility], 155, cm, 11/18/23 9:54:00 EDT, Height, [...] tartrate 10 mg oral tablet (20 sources) gamma-Aminobut yric Acid-ergic Agonist Start: 09-15-2017 End: 01-18-2018 take 1 tablet by mouth at bedtime as needed Zolpidem 10 MG tablet Discontinued 10 mg PO AT BEDTIME as needed for Insomnia September 15, 2017 12:00am January 18, 2018 2:24pm Start: 09-15-2017 End: 01-18-2018 Problems Active Problems Problem Classification Problem Date Documented Da te Episodic/Chronic Abdominal hernia (20 sources) Incisional hernia with obstruction, without gangrene; Translations: [Umbilical hernia] Onset: 8 09-17-2017 Episodic Abdominal pain (20 sources) Flank pain; Translations: [Abdominal pain] Onset: 7 Episodic Acute and unspecified renal failure (20 sources) Injury of kidney; Translations: [Acute kidney failure, unspecified] 09-26-2020 Episodic Comment on above: Present on admission Allergic reactions (20 sources) Contact dermatitis; Translations: [Unspecified contact dermatitis, unspecified cause] Onset: 2 09-30-2021 Episodic Anxiety disorders (20 sources) Anxiety; Translations: [Anxiety disorder, unspecified] Onset: 2 07-28-2021 Chronic Blindness and vision defects (2 sources) Bilateral myopia of eyes; Translations: [Myopia, bilateral] 05-03-2024 Episodic Calculus of urinary tract (20 sources) History of calculus of kidney; Translations: [Personal history of urinary calculi] Onset: 6 Resolved: 9 12-10-2018 Episodic Cardiac dysrhythmias (20 sources) Paroxysmal supraventricular tachycardia; Translations: [Supraventricular tachycardia] Onset: 8 07-03-2017 Chronic Chronic kidney disease (20 sources) Chronic kidney disease; Translations: [Chronic kidney [...] [Breakdown (mechanical) of cystostomy catheter, initial encounter] Onset: 5 07-08-2020 Episodic Diabetes mellitus with complications (20 [...] substances, initial encounter] Episodic E Codes: Fall (13 sources) Fall; Translations: [Unspecified fall, initial encounter] Onset: 4 01-29-2023 Episodic Esophageal disorders (5 sources) Gastro-esophageal reflux disease with esophagitis; Translations: [Gastroesophageal reflux disease with esophagitis without hemorrhage] Onset: 5 01-24-2025 Chronic Esophageal disorders (1 source) Esophageal disorders; Translations: [Gastroesophageal reflux disease with esophagitis without hemorrhage] Onset: 5 Essential hypertension (20 sources) Essential hypertension; Translations: [Essential (primary) hypertension] Onset: 9 06-24-2019 Chronic Gastrointestinal hemorrhage (20 sources) Hematochezia; Translations: [Melena] 04-12-2021 Episodic Genitourinary symptoms and ill-defined conditions (20 sources) Suprapubic urinary catheter in situ; Translations: [Other cystostomy status] Onset: 2 06-25-2020 Chronic Headache; including migraine (20 sources) [...] by 2019-nCoV; Translations: [Suspected COVID-19 virus infection] Onset: 5 01-23-2020 Episodic Infective arthritis and osteomyelitis (except that caused by tuberculosis or sexually transmitted disease) (20 sources) Osteomyelitis of forefoot; Translations: [Osteomyelitis, unspecified] 03-30-2020 Chronic Intestinal infection (1 source) Clostridium difficile colitis; Translations: [Enterocolitis due to Clostridium difficile, not specified as recurrent] 12-04-2023 Episodic Intracranial injury (20 sources) Concussion with no loss of consciousness; Translations: [Concussion without loss of consciousness, initial encounter] 03-08-2018 Episodic Miscellaneous mental health disorders (20 sources) Primary insomnia; Translations: [Primary insomnia] Onset: 6 02-17-2016 Chronic Mood disorders (20 sources) Dysthymia; Translations: [Dysthymic disorder] Onset: 2 Resolved: 4 05-24-2021 Chronic Mood disorders (1 source) Mood disorders; Translations: [Anxiety and depression] Onset: 3 Nausea and vomiting (11 sources) Nausea; Translations: [Nausea] Onset: 4 Episodic Nervous system congenital anomalies (20 sources) Spina bifida; Translations: [Lipomeningocele] Onset: 4 11-27-2016 Chronic Nervous system congenital anomalies (20 sources) H/O: musculoskeletal disease; Translations: [Personal history of other specified (corrected) congenital malformations of nervous system and sense organs] 03-08-2018 Episodic Noninfectious gastroenteritis (1 source) Gastroenteritis; Translations: [Noninfective gastroenteritis and colitis, unspecified] Episodic Nonspecific chest pain (20 sources) Chest pain; Translations: [Chest pain, unspecified] 08-15-2019 Episodic Open wounds of extremities (20 sources) Amputated big toe; Translations: [Complete traumatic amputation of left great toe, initial encounter] Onset: 1 06-25-2020 Chronic Open wounds of extremities (20 sources) Open wound, heel; Translations: [Unspecified open wound, unspecified foot, initial encounter] Onset: 5 03-02-2019 Episodic Other aftercare (20 sources) Wound finding; Translations: [Encounter for other specified aftercare] 02-27-2019 Episodic Other aftercare (2 sources) Patient encounter status; Translations: [Other long term care administrator (current) drug therapy] 09-28-2023 Episodic Other aftercare (6 sources) Long-term current use of anticoagulant; Translations: [nursing home (current) use of anticoagulants] 02-18-2024 Episodic Other aftercare (1 source) Other long term care administrator (current) drug therapy; Translations: [Medication management] Onset: 5 Episodic Other bone disease and musculoskeletal deformities (20 sources) History of amputation of left great toe; Translations: [Acquired absence of left great toe] Onset: 1 04-10-2024 Chronic Other bone disease and musculoskeletal deformities (1 source) Acquired absence of unspecified great toe; Translations: [History of amputation of great toe (HCC)] Onset: 5 Chronic Other circulatory disease (2 sources) Feeling [...] Chronic Other diseases of kidney and ureters (6 sources) Ureteritis; Translations: [Other specified disorders of kidney and ureter] 02-18-2024 Chronic Other diseases of kidney and ureters (20 sources) Acute renal insufficiency; Translations: [Disorder of [...] 2 Chronic Other gastrointestinal disorders (1 source) Neurogenic bowel, not elsewhere classified; Translations: [Neurogenic bowel] Onset: 2 Chronic Other gastrointestinal disorders (1 [...] elsewhere classified] Onset: 0 03-11-2020 Chronic Other liver diseases (1 source) Fatty (change of) liver, not elsewhere classified; Translations: [Fatty liver] Onset: 0 Chronic Other lower respiratory disease (20 sources) [...] nutritional; endocrine; and metabolic disorders (2 sources) Morbid (severe) obesity due to excess calories; Translations: [Morbid (severe) obesity due to excess calories] Onset: 5 Chronic Other nutritional; endocrine; and metabolic disorders (2 sources) Body mass index (BMI) 40.0-44.9, adult; Translations: [...] structures] 10-03-2023 Chronic Other upper respiratory disease (2 sources) Seasonal allergic rhinitis; Translations: [Other seasonal allergic rhinitis] 09-28-2023 Chronic Other upper respiratory disease (1 source) Other seasonal allergic rhinitis; Translations: [Seasonal allergic rhinitis, unspecified trigger] Onset: 5 Chronic Other upper respiratory disease (20 sources) [...] (adult) (pediatric); Translations: [Obstructive sleep apnea] Onset: 3 Chronic Residual codes; unclassified (20 sources) Noncompliance with treatment; Translations: [Patient's noncompliance with other medical treatment and regimen] Onset: 3 11-01-2019 Episodic Residual codes; unclassified (20 sources) Edema of lower extremity; Translations: [Localized edema] 11-01-2019 Episodic Residual codes; unclassified (20 sources) Pain; Translations: [Pain, unspecified] 09-24-2020 Episodic Residual codes; unclassified (20 sources) Other specified health status; Translations: [Failure of outpatient treatment] 09-24-2020 Episodic Residual codes; unclassified (20 sources) Past history of procedure; Translations: [Other specified postprocedural states] Onset: 0 09-23-2020 Episodic Residual codes; unclassified (8 sources) Urinary catheter in situ; Translations: [Presence of other specified devices] 08-13-2023 Episodic Spondylosis; intervertebral disc disorders; other back [...] unspecified reason] Onset: 5 Unclassified (1 source) Paroxysmal SVT (supraventricular tachycardia) (HCC); Translations: [Paroxysmal SVT (supraventricular tachycardia) (HCC)] Onset: 2 Unclassified (1 source) Intractable chronic migraine with aura and without status migrainosus; Translations: [Intractable chronic migraine with aura and without status migrainosus] Onset: 5 Viral infection (20 sources) Viral disease; Translations: [Viral infection, unspecified] 07-10-2019 Episodic Past or Other Problems Problem Classification Problem Date Documented Da te Episodic/Chronic Bacterial infection; unspecified site (9 sources) Therapy failure due to antibiotic resistance; Translations: [Resistance to unspecified antibiotic] Onset: 08-17-2024 08-12-2024 Episodic Complications of surgical procedures or medical care (20 sources) Pulmonary insufficiency following surgery; Translations: [Other postprocedural complications and disorders of respiratory system, not elsewhere classified] Onset: 09-30-2021 09-30-2021 Episodic Fever of unknown origin (20 sources) Fever; Translations: [Fever, unspecified] Onset: 12-18-2022 07-13-2022 Episodic Fluid and electrolyte disorders (20 sources) Hyponatremia; Translations: [Hypo-osmolality and hyponatremia] Onset: 04-08-2021 04-08-2021 Episodic Genitourinary symptoms and ill-defined conditions (20 sources) History of recurrent urinary tract infection; Translations: [Personal history of urinary (tract) infections] Onset: 11-28-2011 02-21-2019 Episodic Hemorrhage during ; abruptio placenta; placenta previa (20 sources) Threatened miscarriage; Translations: [Threatened ] Onset: 06-30-2010 Resolved: 04-07-2011 04-07-2011 Episodic Other aftercare (2 sources) 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; Translations: [nursing home (current) use of insulin] Onset: 08-17-2024 Episodic Other connective tissue disease (20 sources) [...] oropharyngeal phase] Onset: 03-25-2024 03-04-2024 Episodic Other infections; including parasitic (20 sources) [...] source) Paresthesia of skin; Translations: [Paresthesias] Onset: 07-09-2024 Episodic Other nutritional; endocrine; and metabolic disorders (20 sources) Obese class II; Translations: [Obesity, unspecified] Onset: 02-12-2015 Resolved: 01-24-2025 08-24-2022 Chronic Other and delivery including normal (20 sources) [...] Onset: 07-16-2018 07-16-2018 Episodic Residual codes; unclassified (1 source) Localized edema; Translations: [Bilateral leg edema] Onset: 07-16-2018 Episodic Septicemia (except in labor) (20 sources) Sepsis due to Gram negative bacteria ; Translations: [Gram-negative sepsis, unspecified] Onset: 08-17-2024 09-24-2020 Episodic Skin and subcutaneous tissue infections (20 sources) Cellulitis of lower limb; Translations: [Cellulitis of left lower limb] Onset: 08-14-2024 Episodic Spondylosis; intervertebral disc disorders; other back [...] Test Name Value Interpretation Reference Range Facility .Auto Diffon 04-06-2025 Basophil, Absolute 0.0 10 3/mcL Normal 0.0-0.3 [facility] Comment on above: Performed By: #### C RP, GFR, TROPHS, CMP, ADIFF, ANEU, MDW, MG, LAC, ESR, CBC ####[address] [address] Basophils/100 WBC (Bld) 0.4 % Normal 0.0-2.[address] [facility] Comment on above: Performed By: #### C RP, GFR, TROPHS, CMP, ADIFF, ANEU, MDW, MG, LAC, ESR, CBC ####[address] [place], [place] [address] Eosinophil, Absolute 0.1 10 3/mcL Normal 0.0-0.7 [facility] Comment on above: Performed By: #### C RP, GFR, TROPHS, CMP, ADIFF, ANEU, MDW, MG, LAC, ESR, CBC ####[place] [address] [place], [place] [address] Eosinophils/100 WBC (Bld) 1.2 % Normal 0.0-6.[address] [facility] Comment on above: Performed By: #### C RP, GFR, TROPHS, CMP, ADIFF, ANEU, MDW, MG, LAC, ESR, CBC ####[place] [address] [place], [place] [address] Lymphocyte, Absolute 3.8 10 3/mcL Normal 0.9-4.3 [facility] Comment on above: Performed By: #### C RP, GFR, TROPHS, CMP, ADIFF, ANEU, MDW, MG, LAC, ESR, CBC ####[place] [address] [place], [place] [address] Lymphocytes/100 WBC (Bld) 37.7 % Normal 20.0-40.[address] [facility] Comment on above: Performed By: #### C RP, GFR, TROPHS, CMP, ADIFF, ANEU, MDW, MG, LAC, ESR, CBC ####[place] [address] [place], [place] [address] Monocyte, Absolute 1.0 10 3/mcL Normal 0.1-1.4 [facility] Comment on above: Performed By: #### C RP, GFR, TROPHS, CMP, ADIFF, ANEU, MDW, MG, LAC, ESR, CBC ####[place] [address] [place], [place] [address] Monocytes/100 WBC (Bld) 10.0 % Normal 2.0-13.[address] [facility] Comment on above: Performed By: #### C RP, GFR, TROPHS, CMP, ADIFF, ANEU, MDW, MG, LAC, ESR, CBC ####[place] [address] [place], [place] [address] Neutrophils/100 WBC (Bld) 50.7 % Normal 50.0-75.[address] [facility] Comment on above: Performed By: #### C RP, GFR, TROPHS, CMP, ADIFF, ANEU, MDW, MG, LAC, ESR, CBC ####[place] [address] [place], [place] [address] .GFRon 04-06-2025 Estimated Glomerular Filtration Rate 90 ml/min/1.73sqm Normal [facility] Comment on above: Result Comment: Stages of Chronic Kidney Disease (CKD) Stage Description eGFR(ml/min/1.73 sq.m.) CKD 1 Normal kidney function or >=90 normal kindney function with possible kidney damage (ex. Proteinuria) CKD 2 Kidney damage with mild loss 60-89 of kidney function CKD 3a Mild to moderate loss of kidney 45-59 function CKD 3b Moderate to severe loss of 30-44 of kindey function CKD 4 Severe loss of kidney function 15-29 CKD 5 Kidney failure <15 Note: (go live 2024) the eGFR calculation was updated to the 2020 CKD-EPI creatinine equation without a race factor to calculate the eGFR results. Performed By: #### C RP, GFR, TROPHS, CMP, ADIFF, ANEU, MDW, MG, LAC, ESR, CBC ####[place] [address] [place], [place] [address] .MDWon 04-06-2025 Monocyte Distribution Width 18.81 Normal 0.00-20.[address] [facility] Comment on above: Result Comment: For ED adult patients suspected of sepsis, MDW<=20.0 does not rule out sepsis or risk of sepsis Performed By: #### C RP, GFR, TROPHS, CMP, ADIFF, ANEU, MDW, MG, LAC, ESR, CBC ####[place] [address] [place], [place] [address] .NEUABSon 04-06-2025 Neutrophil, Absolute 5.1 10 3/mcL Normal 2.3-8.1 [facility] Comment on above: Performed By: #### C RP, GFR, TROPHS, CMP, ADIFF, ANEU, MDW, MG, LAC, ESR, CBC ####[facility] [place], [place] [address] CBCon 04-06-2025 Erythrocyte distribution width (RBC) [Ratio] 13.9 % Normal 11.5-15.[address] [facility] Comment on above: Performed By: #### C RP, GFR, TROPHS, CMP, ADIFF, ANEU, MDW, MG, LAC, ESR, CBC ####[facility] [place], [place] [address] Hematocrit (Bld) [Volume fraction] 44.7 % Normal 34.0-46.[address] [facility] Comment on above: Performed By: #### C RP, GFR, TROPHS, CMP, ADIFF, ANEU, MDW, MG, LAC, ESR, CBC ####[place] [place], [place] [address] Hgb 15.2 G/dL Normal 12.0-16.[address] [facility] Comment on above: Performed By: #### C RP, GFR, TROPHS, CMP, ADIFF, ANEU, MDW, MG, LAC, ESR, CBC ####[address] [place], [place] [address] MCH (RBC) [Entitic mass] 31.0 pg Normal 27.0-33.[address] [facility] Comment on above: Performed By: #### C RP, GFR, TROPHS, CMP, ADIFF, ANEU, MDW, MG, LAC, ESR, CBC ####[address] [address] MCHC 34.0 G/dL Normal 32.0-36.[address] [facility] Comment on above: Performed By: #### C RP, GFR, TROPHS, CMP, ADIFF, ANEU, MDW, MG, LAC, ESR, CBC ####[address] [place], [place] [address] MCV (RBC) [Entitic vol] 91.4 fL Normal 80.0-99.[address] [facility] Comment on above: Performed By: #### C RP, GFR, TROPHS, CMP, ADIFF, ANEU, MDW, MG, LAC, ESR, CBC ####[facility] [place], [place] [address] Platelet 217 10 3/mcL Normal 150-[address] [facility] Comment on above: Performed By: #### C RP, GFR, TROPHS, CMP, ADIFF, ANEU, MDW, MG, LAC, ESR, CBC ####[place] [address] [place], [place] [address] Platelet mean volume (Bld) [Entitic vol] 8.6 fL Normal 6.6-10.[address] [facility] Comment on above: Performed By: #### C RP, GFR, TROPHS, CMP, ADIFF, ANEU, MDW, MG, LAC, ESR, CBC ####[facility] [place], [place] [address] RBC 4.89 10 6/mcL Normal 4.10-5.[address] [facility] Comment on above: Performed By: #### C RP, GFR, TROPHS, CMP, ADIFF, ANEU, MDW, MG, LAC, ESR, CBC ####[place] [place], [place] [address] WBC 10.1 10 3/mcL Normal 4.5-10.[address] [facility] Comment on above: Performed By: #### C RP, GFR, TROPHS, CMP, ADIFF, ANEU, MDW, MG, LAC, ESR, CBC ####[place] [address] [place], [place] [address] CMPon 04-06-2025 Albumin Level 3.9 G/dL Normal 3.5-5.[address] [facility] Comment on above: Performed By: #### C RP, GFR, TROPHS, CMP, ADIFF, ANEU, MDW, MG, LAC, ESR, CBC ####[facility] [place], [place] [address] Albumin/Globulin [Mass ratio] 0.8 {ratio} Low 1.1-2.[address] [facility] Comment on above: Performed By: #### C RP, GFR, TROPHS, CMP, ADIFF, ANEU, MDW, MG, LAC, ESR, CBC ####[place] [address] [place], [place] [address] ALP [Catalytic activity/Vol] 95 U/L Normal 40-[address] [facility] Comment on above: Performed By: #### C RP, GFR, TROPHS, CMP, ADIFF, ANEU, MDW, MG, LAC, ESR, CBC ####[place] [address] [place] [address] ALT [Catalytic activity/Vol] 25 U/L Normal 14-[address] [facility] Comment on above: Performed By: #### C RP, GFR, TROPHS, CMP, ADIFF, ANEU, MDW, MG, LAC, ESR, CBC ####[place] [place] [address] AST [Catalytic activity/Vol] 14 U/L Normal 10-[address] [facility] Comment on above: Performed By: #### C RP, GFR, TROPHS, CMP, ADIFF, ANEU, MDW, MG, LAC, ESR, CBC ####[place] [place] [address] Bili Total 0.3 mg/dL Normal 0.2-1.[address] [facility] Comment on above: Result Comment: Use of this assay is not recommended for patients undergoing treatment with eltrombopag due to the potential for falsely elevated results. Performed By: #### C RP, GFR, TROPHS, CMP, ADIFF, ANEU, MDW, MG, LAC, ESR, CBC ####[address] [place] [address] BUN/Creatinine Ratio 18 ratio Normal 7-27 [facility] Comment on above: Performed By: #### C RP, GFR, TROPHS, CMP, ADIFF, ANEU, MDW, MG, LAC, ESR, CBC ####[place] [address] [place] [address] Calcium [Mass/Vol] 10.0 mg/dL Normal 8.4-10.2 [facility] Comment on above: Performed By: #### C RP, GFR, TROPHS, CMP, ADIFF, ANEU, MDW, MG, LAC, ESR, CBC ####[place] [address] [place], [place] [address] Chloride [Moles/Vol] 100 mmol/L Normal 98-107 [facility] Comment on above: Performed By: #### C RP, GFR, TROPHS, CMP, ADIFF, ANEU, MDW, MG, LAC, ESR, CBC ####[address] [address] CO2 [Moles/Vol] 27 mmol/L Normal 22-[address] [facility] Comment on above: Performed By: #### C RP, GFR, TROPHS, CMP, ADIFF, ANEU, MDW, MG, LAC, ESR, CBC ####[address] [place], [place] [address] Creatinine [Mass/Vol] 0.83 mg/dL Normal 0.51-0.95 [facility] Comment on above: Performed By: #### C RP, GFR, TROPHS, CMP, ADIFF, ANEU, MDW, MG, LAC, ESR, CBC ####[address] [address] Electrolyte Balance 10.0 mEq/L Normal 4.0-15.0 [facility] Comment on above: Performed By: #### C RP, GFR, TROPHS, CMP, ADIFF, ANEU, MDW, MG, LAC, ESR, CBC ####[place] [address] [place], [place] [address] Globulin 4.7 G/dL High 2.7-4.[address] [facility] Comment on above: Performed By: #### C RP, GFR, TROPHS, CMP, ADIFF, ANEU, MDW, MG, LAC, ESR, CBC ####[address] [place], [place] [address] Glucose [Mass/Vol] 276 mg/dL High 70-105 [facility] Comment on above: Performed By: #### C RP, GFR, TROPHS, CMP, ADIFF, ANEU, MDW, MG, LAC, ESR, CBC ####[address] [address] Potassium [Moles/Vol] 3.7 mmol/L Normal 3.5-5.1 [facility] Comment on above: Performed By: #### C RP, GFR, TROPHS, CMP, ADIFF, ANEU, MDW, MG, LAC, ESR, CBC ####[address] [place], [place] [address] Sodium [Moles/Vol] 137 mmol/L Normal 136-145 [facility] Comment on above: Performed By: #### C RP, GFR, TROPHS, CMP, ADIFF, ANEU, MDW, MG, LAC, ESR, CBC ####[address] [address] Total Protein 8.6 G/dL High 6.4-8.[address] [facility] Comment on above: Performed By: #### C RP, GFR, TROPHS, CMP, ADIFF, ANEU, MDW, MG, LAC, ESR, CBC ####[place] [address] Urea nitrogen [Mass/Vol] 15 mg/dL Normal 7-[address] [facility] Comment on above: Performed By: #### C RP, GFR, TROPHS, CMP, ADIFF, ANEU, MDW, MG, LAC, ESR, CBC ####[address] [address] CRPon 04-06-2025 C-Reactive Protein 1.1 mg/dL High 0.0-0.3 [facility] Comment on above: Performed By: #### C RP, GFR, TROPHS, CMP, ADIFF, ANEU, MDW, MG, LAC, ESR, CBC ####[address] [place], [place] [address] ESRon 04-06-2025 Erythrocyte Sed Rate 20 mm/hr Normal 0-20 [facility] Comment on above: Performed By: #### C RP, GFR, TROPHS, CMP, ADIFF, ANEU, MDW, MG, LAC, ESR, CBC ####[address] [place], [place] [address] LABORATORYOrdered By: SYSTEM SYSTEM on 04-06-2025 Albumin BCP dye [Mass/Vol] 3.9 G/dL Normal 3.5 - 5.0 G/dL AO ADM SS Albumin/Globulin [Mass ratio] 0.8 {ratio} Low 1.1 - 2.5 ratio AO ADM SS ALP [Catalytic activity/Vol] 95 U/L Normal 40 - 135 U/L AO ADM SS ALT With P-5'-P [Catalytic activity/Vol] 25 U/L Normal 14 - 59 U/L AO ADM SS AST With P-5'-P [Catalytic activity/Vol] 14 U/L Normal 10 - 40 U/L AO ADM SS Basophils (Bld) [#/Vol] 0.0 103/mcL Normal 0.0 - 0.3 10^3/mcL AO Workflow SS Basophils/100 WBC (Bld) 0.4 % Normal 0.0 - 2.5 % AO Workflow SS Bilirubin [Mass/Vol] 0.3 mg/dL Normal 0.2 - 1 .0 mg/dL AO ADM SS Comment on above: Interpretive Data: U se of this assay is not recommended for patients undergoing treatment with eltrombopag due to the potential for falsely elevated results. Calcium [Mass/Vol] 10.0 mg/dL Normal 8.4 - 10. 2 mg/dL AO ADM SS Chloride [Moles/Vol] 100 mmol/L Normal 98 - 10 7 mmol/L AO ADM SS CO2 [Moles/Vol] 27 mmol/L Normal 22 - 29 mmol/L AO ADM SS Creatinine [Mass/Vol] 0.83 mg/dL Normal 0.51 - 0.95 mg/dL AO ADM SS CRP [Mass/Vol] 1.1 mg/dL High 0.0 - 0.3 mg/dL AO ADM SS Electrolyte Balance 10.0 mEq/L Normal 4.0 - 15 .0 mEq/L AO ADM SS Eosinophil, Absolute 0.1 103/mcL Normal 0.0 - 0 .7 10^3/mcL AO Workflow SS Eosinophils/100 WBC (Bld) 1.2 % Normal 0.0 - 6.0 % AO Workflow SS Erythrocyte distribution width (RBC) [Ratio] 13.9 % Normal 11.5 - 15.5 % AO Workflow SS Globulin 4.7 G/dL High 2.7 - 4.4 G/dL AO ADM SS GLOMERULAR FILTRATION RATE/1.73 SQ M.PREDICTED:ARVRAT:PT:S ER/PLAS/BLD:QN:CREATINI NE-BASED FORMULA (CKD-EPI 2020) 90 ml/min/1.73sqm Invalid Interpretation Code AO Chemistry S Comment on above: Interpretive Data: Stages of Chronic Kidney Disease (CKD) Stage Description eGFR(ml/min/1.73 sq.m.) CKD 1 Normal kidney function or >=90 normal kindney function with possible kidney damage (ex. Proteinuria) CKD 2 Kidney damage with mild loss 60-89 of kidney function CKD 3a Mild to moderate loss of kidney 45-59 function CKD 3b Moderate to severe loss of 30-44 of kindey function CKD 4 Severe loss of kidney function 15-29 CKD 5 Kidney failure <15 Note: (go live 2024) the eGFR calculation was updated to the 2020 CKD-EPI creatinine equation without a race factor to calculate the eGFR results. Glucose [Mass/Vol] 276 mg/dL High 70 - 105 mg/dL AO ADM SS Hematocrit (Bld) [Volume fraction] 44.7 % Normal 34.0 - 46.0 % AO Workflow SS Hemoglobin (Bld) [Mass/Vol] 15.2 G/dL Normal 12.0 - 16.0 G/dL AO Workflow SS Lactate [Moles/Vol] 1.6 mmol/L Normal 0.4 - 2. 0 mmol/L AO ADM SS Lymphocytes (Bld) [#/Vol] 3.8 103/mcL Normal 0.9 - 4.3 10^3/mcL AO Workflow SS Lymphocytes/100 WBC (Bld) 37.7 % Normal 20.0 - 40.0 % AO Workflow SS Magnesium [Mass/Vol] 1.7 mg/dL Low 1.8 - 2 .4 mg/dL AO ADM SS MCH (RBC) [Entitic mass] 31.0 pg Normal 27.0 - 33.0 pg AO Workflow SS MCHC 34.0 G/dL Normal 32.0 - 36.0 G/dL AO Workflow SS MCV (RBC) [Entitic vol] 91.4 fL Normal 80.0 - 99.0 fL AO Workflow SS Monocyte distribution width Auto (Bld) [Entitic vol] 18.81 1 Normal 0.00 - 20.00 AO Workflow SS Comment on above: Result Comment: For ED adult patients suspected of sepsis, MDW<=20.0 does not rule out sepsis or risk of sepsis Monocytes (Bld) [#/Vol] 1.0 103/mcL Normal 0.1 - 1.4 10^3/mcL AO Workflow SS Monocytes/100 WBC (Bld) 10.0 % Normal 2.0 - 13.0 % AO Workflow SS Neutrophils (Bld) [#/Vol] 5.1 103/mcL Normal 2.3 - 8.1 10^3/mcL AO Workflow SS Neutrophils/100 WBC (Bld) 50.7 % Normal 50.0 - 75.0 % AO Workflow SS Platelet mean volume (Bld) [Entitic vol] 8.6 fL Normal 6.6 - 10.5 fL AO Workflow SS Platelets (Bld) [#/Vol] 217 103/mcL Normal 150 - 450 10^3/mcL AO Workflow SS Potassium [Moles/Vol] 3.7 mmol/L Normal 3.5 - 5.1 mmol/L AO ADM SS Protein [Mass/Vol] 8.6 G/dL High 6.4 - 8.2 G/dL AO ADM SS RBC (Bld) [#/Vol] 4.89 106/mcL Normal 4.10 - 5.30 10^6/mcL AO Workflow SS Sodium [Moles/Vol] 137 mmol/L Normal 136 - 145 mmol/L AO ADM SS Troponin I.cardiac DL <= 0.01 ng/mL [Mass/Vol] ng/L Normal 0 - 51 ng/L AO ADM SS Comment on above: Interpretive Data: H igh Sensitive Troponin I Reference Ranges: Female: 0-51 ng/L Male: 0-76 ng/L Testing performed on [employer] using a homogeneous sandwich chemiluminescent immunoassay based on [employer] technology. Urea nitrogen [Mass/Vol] 15 mg/dL Normal 7 - 18 mg/dL AO ADM SS Urea nitrogen/Creatinine [Mass ratio] 18 ratio Normal 7 - 27 ratio AO ADM SS WBC (Bld) [#/Vol] 10.1 103/mcL Normal 4.5 - 10.8 10^3/mcL AO Workflow SS LABORATORYOrdered By: Rosario Cagle on 04-06-2025 ESR Photometric method (Bld) [Velocity] 20 mm/hr Normal 0 - 20 mm/hr AO Man Heme SS LACon 04-06-2025 Lactic Acid Lvl 1.6 mmol/L Normal 0.4-2.[address] [facility] Comment on above: Performed By: #### C RP, GFR, TROPHS, CMP, ADIFF, ANEU, MDW, MG, LAC, ESR, CBC ####[place] [address] [place], [place] [address] MGon 04-06-2025 Magnesium [Mass/Vol] 1.7 mg/dL Low 1.8-2.4 [facility] Comment on above: Performed By: #### C RP, GFR, TROPHS, CMP, ADIFF, ANEU, MDW, MG, LAC, ESR, CBC ####[address] [place], [place] [address] TROPHSon 04-06-2025 High Sensitivity Troponin I <4 Normal 0-[address] [facility] Comment on above: Result Comment: High Sensitive Troponin I Reference Ranges: Female: 0-51 ng/L Male: 0-76 ng/L Testing performed on [employer] using a homogeneous sandwich chemiluminescent immunoassay based on [employer] technology. Performed By: #### C RP, GFR, TROPHS, CMP, ADIFF, ANEU, MDW, MG, LAC, ESR, CBC ####[place] [address] [place], [place] [address] XR ANKLE MINIMUM 3 VIEWS LEF Ton 04-06-2025 XR ANKLE MINIMUM 3 VIEWS LEFT ORIGINAL EXAMINATION: THREE XRAY VIEWS OF THE LEFT ANKLE 04/06/2025 5:02 pm COMPARISON: 07/03/2022 HISTORY: ORDERING SYSTEM PROVIDED HISTORY: Reason for Exam: pain FINDINGS: No acute fracture or dislocation. 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 Diffuse soft tissue swelling of the lower extremity. No erosive changes of the ankle. No radiodense foreign body. IMPRESSION: No acute osseous findings by radiograph. I have personally reviewed the images of this examination and agree with the resident's findings and interpretation. Interpreted by: Stephan Davies Preliminary Report By: Julianne Levin Electronically signed By Stephan Davies Dictated Date: 04/06/2025 5:31:21 PM Prelim Date: 04/06/2025 5:36:46 PM Sign Date: 04/06/2025 5:42:34 PM Ordering Provider: SUSAN LEON RP Normal [facility] XR CHEST 1 VIEWon 04-06-2025 XR CHEST 1 VIEW ORIGINAL EXAMINATION: ONE XRAY VIEW OF THE CHEST 04/06/2025 5:02 pm COMPARISON: 11/17/2023 HISTORY: ORDERING SYSTEM PROVIDED HISTORY: Reason for Exam: dizziness FINDINGS: Cardiomediastinal silhouette is within normal limits. Diminished lung volumes with associated hypoventilatory changes. No focal consolidation, pleural effusion, or pneumothorax. No acute osseous findings. IMPRESSION: Low lung volumes. I have personally reviewed the images of this examination and agree with the resident's findings and interpretation. Interpreted by: Stephan Davies Preliminary Report By: Julianne Levin Electronically signed By Stephan Davies Dictated Date: 04/06/2025 5:29:16 PM Prelim Date: 04/06/2025 5:30:06 PM Sign Date: 04/06/2025 5:41:00 PM Ordering Provider: SUSAN LEON RP Normal [facility] Electrocardiogram reportOrde red By: Rojas Oates on 03-09-2025 EKG study [facility] [address] [place] [address] 12 Lead EKG 03/08/251941 MR#: [id number] Acct: [id number] Name: DEBBY BAILON Rep #:[id number] : 1980 44 From: Rojas Oates MD Attending Dr: Status: DEP E R Ordering Dr: Andre Sue DO Date: Location: ED Sex: F C Admitted: Test Reason : FLANK PAIN Blood Pressure : */* mmHG Vent. Rate : 81 BPM Atrial Rate : 81 BPM P-R Int : 148 ms QRS Dur : 78 ms QT Int : 400 ms P-R-T Axes : 20 28 9 degrees QTcB Int : 464 ms Normal sinus rhythm Normal ECG Confirmed by ROJAS OATES MD ([id number]), city editor WILBUR FARRAR ([id number]) on 03/11/2025 7:39:34 AM Referred By: SIRI Confirmed By: ROJAS OATES MD 03/11/25 0739 Date _ Rojas Oates MD CC: Dr. Will Brannon MD; Dr. Andre Sue, DO ~ Signed [facility] Other Absolute lymphocyte countOrd ered By: Andre Sue on 03-08-2025 Lymphocytes Auto (Unsp spec) [#/Vol] 4.42 10*3/uL 0.83-4.51 [facility] Absolute neutrophil countOrd ered By: Andre Sue on 03-08-2025 Neutrophils (Bld) [#/Vol] 5.9 10*3/uL 2.0-7.7 [facility] Activated partial thrombopla stin time (aPTT) in platelet poor plasma by coagulation aOrdered By: Andre Sue on 03-08-2025 aPTT Coag (PPP) [Time] 24.3 s 24.1-36.2 [facility] Amorphous sediment detection in urine sediment by light microscopyOrdered By: Andre Sue on 03-08-2025 Amorphous sediment LM Ql (Urine sed) 1+ [facility] Anion gap in Serum or Plasma Ordered By: Andre Sue on 03-08-2025 Anion gap [Moles/Vol] 12 mmol/L 5-15 [facility] Automated lymphocyte count a s percentage of total leukocytesOrdered By: Andre Sue on 03-08-2025 Lymphocytes/100 WBC Auto (Unsp spec) 37.6 % 19-41 [facility] BUN/creatinine ratioOrdered By: Andre Sue on 03-08-2025 Urea nitrogen/Creatinine [Mass ratio] 17.1 mg/mg 10-20 [facility] Basophil percentageOrdered B y: Andre Sue on 03-08-2025 Basophils/100 WBC (Bld) 0.3 % 0-1 [facility] Bilirubin Test strip Ql (U)O rdered By: Andre Sue on 03-08-2025 Bilirubin Ql (U) Negative Negative [facility] Bilirubin, totalOrdered By: Andre Sue on 03-08-2025 Bilirubin [Mass/Vol] 0.38 mg/dL 0.00-1.[address] [facility] Blood cultureOrdered By: Concepción Sue on 03-08-2025 Bacteria identified Cx Nom (Bld) No growth in 5 days. [facility] Bacteria identified Cx Nom (Bld) No growth in 5 days. [facility] Carbon dioxide, total [Moles /volume] in Central venous bloodOrdered By: Andre Sue on 03-08-2025 CO2 [Moles/Vol] 23.1 mmol/L 21.0-32.0 [facility] Chloride assayOrdered By: Mau Sue on 03-08-2025 Chloride [Moles/Vol] 96 mmol/L Low 98-108 [facility] Eosinophil percentageOrdered By: Andre Sue on 03-08-2025 Eosinophils/100 WBC (Bld) 1.1 % 0-5 [facility] Erythrocyte distribution wid th ratioOrdered By: Andre Sue on 03-08-2025 Erythrocyte distribution width (RBC) [Ratio] 13.2 % 11.6-14.6 [facility] Erythrocyte distribution wid th standard deviationOrdered By: Andre Sue on 03-08-2025 Erythrocyte distribution width (RBC) [Ratio] 43.2 fl 35.1-43.9 [facility] Glomerular filtration rate ( GFR) estimation/1.73 sq m using serum, plasma, or whole bOrdered By: Andre Sue on 03-08-2025 GFR/1.73 sq M.predicted among non-blacks MDRD (S/P/Bld) [Vol rate/Area] 79 mL/min/{1.73_m2} >60 [facility] Comment on above: mL/min/1.73m2 CKD-EP I Creatinine Equation (2020) Hematocrit Auto (Bld) [Volum e fraction]Ordered By: Andre Sue on 03-08-2025 Hematocrit (Bld) [Volume fraction] 40.8 % 37-47 [facility] Hemoglobin measurementOrdere d By: Andre Sue on 03-08-2025 Hemoglobin (Bld) [Mass/Vol] 14.4 g/dL 12.0-15.0 [facility] Immature granulocytes/100 WB C Auto (Bld)Ordered By: Andre Sue on 03-08-2025 Immature granulocytes/100 WBC (Bld) 0.700 % 0.0-0.9 [facility] Comment on above: IG% - Immature Granu locytes (promyelocytes, myelocytes and metamyelocytes) > 1% indicates that a LEFT SHIFT is Present. International normalized rat io (INR) calculationOrdered By: Andre Sue on 03-08-2025 INR Coag (Bld) [Relative time] 0.9 {INR} [facility] Ketones Test strip Ql (U)Ord ered By: Andre Sue on 03-08-2025 Ketones Ql (U) Negative Negative [facility] Laboratory - Chemistry and C hemistry - challengeOrdered By: Andre Sue on 03-08-2025 AST [Catalytic activity/Vol] 33 U/L High <32 [facility] Comment on above: Hemolysis present, R esults could be affected. Lactic acid measurementOrder ed By: Andre Sue on 03-08-2025 Lactate [Moles/Vol] 2.0 mmol/L 0.0-2.0 [facility] Comment on above: Critical Result(s) C alled at 2015: by: RICK TO [facility] Results read back by same. MCV (mean corpuscular volume ) determinationOrdered By: Andre Sue on 03-08-2025 MCV (RBC) [Entitic vol] 89.1 fL 81-99 [facility] Mean corpuscular hemoglobin (MCH) determinationOrdered By: Andre Sue on 03-08-2025 MCH (RBC) [Entitic mass] 31.4 pg 27.0-32.0 [facility] Mean corpuscular hemoglobin concentration (MCHC) determinationOrdered By: Andre Sue on 03-08-2025 MCHC (RBC) [Mass/Vol] 35.3 g/dL 32-36 [facility] Mean platelet volume determi nationOrdered By: Andre Sue on 03-08-2025 Platelet mean volume (Bld) [Entitic vol] 10.4 fL 6.2-12.0 [facility] Microscopic analysis of urin e for red blood cells (RBC)Ordered By: Andre Sue on 03-08-2025 Microscopic analysis of urine for red blood cells (RBC) 0-5 SEEN /hpf 0-5 [facility] Monocyte percentageOrdered B y: Andre Sue on 03-08-2025 Monocytes/100 WBC (Bld) 10.1 % High 0-10 [facility] Mucus LM Ql (Urine sed)Order ed By: Andre Sue on 03-08-2025 Mucus Ql (Urine sed) 0 SEEN /hpf [facility] Neutrophil percentageOrdered By: Andre Sue on 03-08-2025 Neutrophils/100 WBC (Bld) 50.2 % 47-70 [facility] Nitrite Test strip Ql (U)Ord ered By: Andre Sue on 03-08-2025 Nitrite Ql (U) Negative Negative [facility] Nucleated red blood cell per centageOrdered By: Andre Sue on 03-08-2025 Nucleated RBC/100 WBC (Bld) [Ratio] 0 % 0-5 [facility] Platelet countOrdered By: Mau Sue on 03-08-2025 Platelets (Bld) [#/Vol] 189 10*3/uL 150-450 [facility] Potassium measurement (mass/ volume)Ordered By: Andre Sue on 03-08-2025 Potassium (Unsp spec) [Mass/Vol] 4.1 mmol/L 3.3-5.1 [facility] Comment on above: Hemolysis present, R esults could be affected. Protein Test strip Ql (U)Ord ered By: Andre Sue on 03-08-2025 Protein Ql (U) 100 mg/dl High Negative [facility] Prothrombin timeOrdered By: Andre Sue on 03-08-2025 PT Coag (PPP) [Time] 12.1 s 11.7-14.9 [facility] RBC Auto (Bld) [#/Vol]Ordere d By: Andre Sue on 03-08-2025 RBC (Bld) [#/Vol] 4.58 10*6/uL 4.2-5.4 [facility] Serum creatinine measurement (mass/volume)Ordered By: Andre Sue on 03-08-2025 Creatinine [Mass/Vol] 0.92 mg/dL 0.70-1.20 [facility] Serum globulin measurementOr dered By: Andre Sue on 03-08-2025 Globulin (S) [Mass/Vol] 3.7 g/dL 2.2-4.2 [facility] Serum glucose measurement (m ass/volume)Ordered By: Andre Sue on 03-08-2025 Glucose [Mass/Vol] 402 mg/dL High 70-99 [facility] Serum or plasma alanine gagnon otransferase (ALT) measurementOrdered By: Andre Sue on 03-08-2025 ALT [Catalytic activity/Vol] 29 U/L <35 [facility] Serum or plasma albumin thi urement (mass/volume)Ordered By: Andre Sue on 03-08-2025 Albumin [Mass/Vol] 4.1 g/dL 3.5-5.0 [facility] Serum or plasma albumin/glob ulin mass ratioOrdered By: Andre Sue on 03-08-2025 Albumin/Globulin [Mass ratio] 1.1 {ratio} 0.9-2.4 [facility] Serum or plasma alkaline gisselle sphatase measurementOrdered By: Andre Sue on 03-08-2025 ALP [Catalytic activity/Vol] 77 U/L 35-104 [facility] Serum or plasma calcium thi urement (mass/volume)Ordered By: Andre Sue on 03-08-2025 Calcium [Mass/Vol] 10.0 mg/dL 7.6-11.0 [facility] Serum or plasma urea nitroge n measurement (mass/volume)Ordered By: Andre Sue on 03-08-2025 Urea nitrogen [Mass/Vol] 16 mg/dL 4-19 [facility] Sodium levelOrdered By: Lita Sue on 03-08-2025 Sodium [Moles/Vol] 131 mmol/L Low 133-145 [facility] Squamous epithelial cells de tection in urine sediment by light microscopyOrdered By: Andre Sue on 03-08-2025 Epithelial cells.squamous LM Ql (Urine sed) 0 SEEN /hpf 5-10 [facility] Total proteinOrdered By: Concepción Sue on 03-08-2025 Protein [Mass/Vol] 7.8 g/dL 5.9-8.4 [facility] Urine clarityOrdered By: Concepción Sue on 03-08-2025 Clarity (U) Sl. Cloudy Clear [facility] Urine color determinationOrd ered By: Andre Sue on 03-08-2025 Color (U) Straw Yellow [facility] Urine cultureOrdered By: Concepción Sue on 03-08-2025 Bacteria identified Cx Nom (U) Proteus penneri Abnormal [facility] Bacteria identified Cx Nom (U) Proteus penneri#2 Abnormal [facility] Bacteria identified Cx Nom (U) Staphylococcus aureus Abnormal [facility] Urine glucose detectionOrder ed By: Andre Sue on 03-08-2025 Glucose Ql (U) 1000 mg/dl High Normal [facility] Urine leukocyte esterase det ection by dipstickOrdered By: Andre Sue on 03-08-2025 Leukocyte esterase Test strip Ql (U) 500 /ul High Negative [facility] Urine pHOrdered By: Andre zamora on 03-08-2025 pH (U) 8.0 [pH] 5.0 - 8.0 [facility] Urine sediment bacteria coun t by microscopy (number/high power field)Ordered By: Andre Sue on 03-08-2025 Bacteria LM.HPF (Urine sed) [#/Area] 3 /[HPF] None Seen [facility] Urine specific gravity measu rementOrdered By: Andre Sue on 03-08-2025 Specific gravity (U) [Rel density] 1.015 1.002-1.03 0 [facility] Urine urobilinogen measureme ntOrdered By: Andre Sue on 03-08-2025 Urobilinogen Ql (U) Normal mg/dl Normal [facility] White blood cell (WBC) count Ordered By: Andre Sue on 03-08-2025 WBC (Bld) [#/Vol] 11.8 10*3/uL High 4.4-11.0 [facility] White blood cell countOrdere d By: Andre Sue on 03-08-2025 White blood cell count 0-5 SEEN /hpf 0-5 [facility] .GFRon 01-30-2025 Estimated Glomerular Filtration Rate 111 ml/min/1.73sqm Normal [facility] Comment on above: Result Comment: Stages of Chronic Kidney Disease (CKD) Stage Description eGFR(ml/min/1.73 sq.m.) CKD 1 Normal kidney function or >=90 normal kindney function with possible kidney damage (ex. Proteinuria) CKD 2 Kidney damage with mild loss 60-89 of kidney function CKD 3a Mild to moderate loss of kidney 45-59 function CKD 3b Moderate to severe loss of 30-44 of kindey function CKD 4 Severe loss of kidney function 15-29 CKD 5 Kidney failure <15 Note: (go live 2024) the eGFR calculation was updated to the 2020 CKD-EPI creatinine equation without a race factor to calculate the eGFR results. Performed By: #### G FR, CMP, CBC, REJI, KALEB PENA, LIP ####[place] [address] [place], [place] [address] CMPon 01-30-2025 Albumin Level 3.8 G/dL Normal 3.5-5.[address] [facility] Comment on above: Performed By: #### G FR, CMP, CBC, BECKY MENDOZA MDW, LIP ####[address] [place], [place] [address] Albumin/Globulin [Mass ratio] 0.9 {ratio} Low 1.1-2.[address] [facility] Comment on above: Performed By: #### G FR, CMP, CBC, BECKY MENDOZA MDW, LIP ####[place] [address] [place], [place] [address] ALP [Catalytic activity/Vol] 83 U/L Normal 40-[address] [facility] Comment on above: Performed By: #### G FR, CMP, CBC, ANEU, KALEB PENA, LIP ####[place] [address] [place], [place] [address] ALT [Catalytic activity/Vol] 38 U/L Normal 14-[address] [facility] Comment on above: Performed By: #### G FR, CMP, CBC, ANEU, KALEB PENA, LIP ####[address] [place], [place] [address] AST [Catalytic activity/Vol] 15 U/L Normal 10-[address] [facility] Comment on above: Performed By: #### G FR, CMP, CBC, REJI, KALEB PENA, LIP ####[place] [place], [place] [address] Bili Total 0.2 mg/dL Normal 0.2-1.[address] [facility] Comment on above: Result Comment: Use of this assay is not recommended for patients undergoing treatment with eltrombopag due to the potential for falsely elevated results. Performed By: #### G FR, CMP, CBC, BECKY MENDOZA MDW, LIP ####[facility] [place], [place] [address] BUN/Creatinine Ratio 22 ratio Normal 7-27 [facility] Comment on above: Performed By: #### G FR, CMP, CBC, BECKY MENDOZA MDW, LIP ####[place] [address] [place], [place] [address] Calcium [Mass/Vol] 9.6 mg/dL Normal 8.4-10.2 [facility] Comment on above: Performed By: #### G FR, CMP, CBC, BECKY MENDOZA MDW, LIP ####[place] [address] [place], [place] [address] Chloride [Moles/Vol] 99 mmol/L Normal 98-107 [facility] Comment on above: Performed By: #### G FR, CMP, CBC, BECKY MENDOAZ MDW, LIP ####[place] [address] [place], [place] [address] CO2 [Moles/Vol] 26 mmol/L Normal 22-[address] [facility] Comment on above: Performed By: #### G FR, CMP, CBC, ANEU, KALEB PENA, LIP ####[place] [address] [place], [place] [address] Creatinine [Mass/Vol] 0.68 mg/dL Normal 0.51-0.95 [facility] Comment on above: Performed By: #### G FR, CMP, CBC, ANEUBECKY MDW, LIP ####[place] [address] [place], [place] [address] Electrolyte Balance 7.0 mEq/L Normal 4.0-15.0 [facility] Comment on above: Performed By: #### G FR, CMP, CBC, ANEUBECKY MDW, LIP ####[place] [address] [place], [place] [address] Globulin 4.3 G/dL Normal 2.7-4.[address] [facility] Comment on above: Performed By: #### G FR, CMP, CBC, ANEUBECKY MDW, LIP ####[place] [address] [place], [place] [address] Glucose [Mass/Vol] 289 mg/dL High 70-105 [facility] Comment on above: Performed By: #### G FR, CMP, CBC, ANEU, KALEB PENA, LIP ####[place] [address] [place], [place] [address] Potassium [Moles/Vol] 4.0 mmol/L Normal 3.5-5.1 [facility] Comment on above: Performed By: #### G FR, CMP, CBC, BECKY MENDOZA MDW, LIP ####[place] [address] [place], [place] [address] Sodium [Moles/Vol] 132 mmol/L Low 136-145 [facility] Comment on above: Performed By: #### G FR, CMP, CBC, BECKY MENDOZA MDW, LIP ####[place] [place], [place] [address] Total Protein 8.1 G/dL Normal 6.4-8.[address] [facility] Comment on above: Performed By: #### G FR, CMP, CBC, ANEUBECKY MDW, LIP ####[place] [address] [place], [place] [address] Urea nitrogen [Mass/Vol] 15 mg/dL Normal 7-[address] [facility] Comment on above: Performed By: #### G FR, CMP, CBC, ANEU, KALEB PENA, LIP ####[place] [address] [place], [place] [address] LIPon 01-30-2025 Lipase Level 50 U/L Normal 16-[address] [facility] Comment on above: Performed By: #### G FR, CMP, CBC, ANEU, ADIFF, MDW, LIP ####[place] [address] [place], [place] [address] .Auto Diffon 01-29-2025 Basophil, Absolute 0.1 10 3/mcL Normal 0.0-0.3 [facility] Comment on above: Performed By: #### G FR, CMP, CBC, ANEU, ADIFF, MDW, LIP ####[place] [address] [place], [place] [address] Basophils/100 WBC (Bld) 0.5 % Normal 0.0-2.5 [facility] Comment on above: Performed By: #### G FR, CMP, CBC, ANEU, ADIFF, MDW, LIP ####[place] [address] [place], [place] [address] Eosinophil, Absolute 0.2 10 3/mcL Normal 0.0-0.7 [facility] Comment on above: Performed By: #### G FR, CMP, CBC, ANEU, ADIFF, MDW, LIP ####[place] [address] [place], [place] [address] Eosinophils/100 WBC (Bld) 1.6 % Normal 0.0-6.[address] [facility] Comment on above: Performed By: #### G FR, CMP, CBC, ANEU, ADIFF, MDW, LIP ####[place] [address] [place], [place] [address] Lymphocyte, Absolute 4.7 10 3/mcL High 0.9-4.3 [facility] Comment on above: Performed By: #### G FR, CMP, CBC, ANEU, ADIFF, MDW, LIP ####[place] [address] [place], [place] [address] Lymphocytes/100 WBC (Bld) 43.1 % High 20.0-40.[address] [facility] Comment on above: Performed By: #### G FR, CMP, CBC, ANEU, ADIFF, MDW, LIP ####[place] [address] [place], [place] [address] Monocyte, Absolute 1.1 10 3/mcL Normal 0.1-1.4 [facility] Comment on above: Performed By: #### G FR, CMP, CBC, ANEU, KALEB PENA, LIP ####[place] [address] [place], [place] [address] Monocytes/100 WBC (Bld) 10.1 % Normal 2.0-13.0 [facility] Comment on above: Performed By: #### G FR, CMP, CBC, ANEU, ADLAURO, W, LIP ####[place] [address] [place], [place] [address] Neutrophils/100 WBC (Bld) 44.7 % Low 50.0-75.[address] [facility] Comment on above: Performed By: #### G FR, CMP, CBC, ANEU, ADKALEB RESTREPO, LIP ####[place] [address] [place], [place] [address] .MDWon 01-29-2025 Monocyte Distribution Width 18.37 Normal 0.00-20.[address] [facility] Comment on above: Result Comment: For ED adult patients suspected of sepsis, MDW<=20.0 does not rule out sepsis or risk of sepsis Performed By: #### G FR, CMP, CBC, ANEU, KALEB PENA, LIP ####[address] [address] .NEUABSon 01-29-2025 Neutrophil, Absolute 4.8 10 3/mcL Normal 2.3-8.1 [facility] Comment on above: Performed By: #### G FR, CMP, CBC, ANEU, ADKALEB RESTREPO, LIP ####[place] [address] [place], [place] [address] CBCon 01-29-2025 Erythrocyte distribution width (RBC) [Ratio] 14.8 % Normal 11.5-15.[address] [facility] Comment on above: Performed By: #### G FR, CMP, CBC, ANEU, ADLAURO, MDW, LIP ####[place] [address] [place], [place] [address] Hematocrit (Bld) [Volume fraction] 44.8 % Normal 34.0-46.[address] [facility] Comment on above: Performed By: #### G FR, CMP, CBC, ANEU, ADIFF, MDW, LIP ####[place] [address] [place], [place] [address] Hgb 15.3 G/dL Normal 12.0-16.[address] [facility] Comment on above: Performed By: #### G FR, CMP, CBC, ANEU, ADIFF, MDW, LIP ####[place] [address] [place] [address] MCH (RBC) [Entitic mass] 30.8 pg Normal 27.0-33.[address] [facility] Comment on above: Performed By: #### G FR, CMP, CBC, ANEU, ADLAURO, MDW, LIP ####[place] [address] [place], [place] [address] MCHC 34.1 G/dL Normal 32.0-36.[address] [facility] Comment on above: Performed By: #### G FR, CMP, CBC, ANEU, ADIFF, MDW, LIP ####[place] [address] [place], [place] [address] MCV (RBC) [Entitic vol] 90.5 fL Normal 80.0-99.[address] [facility] Comment on above: Performed By: #### G FR, CMP, CBC, ANEU, ADIFF, MDW, LIP ####[facility] [place], [place] [address] Platelet 186 10 3/mcL Normal 150-[address] [facility] Comment on above: Performed By: #### G FR, CMP, CBC, ANEU, ADLAURO, MDW, LIP ####[place] [address] [place], [place] [address] Platelet mean volume (Bld) [Entitic vol] 8.4 fL Normal 6.6-10.[address] [facility] Comment on above: Performed By: #### G FR, CMP, CBC, ANEU, ADIFF, MDW, LIP ####[place] [address] [place], [place] [address] RBC 4.95 10 6/mcL Normal 4.10-5.[address] [facility] Comment on above: Performed By: #### G FR, CMP, CBC, BECKY MENDOZA MDW, LIP ####[place] [address] [place], [place] [address] WBC 10.8 10 3/mcL Normal 4.5-10.[address] [facility] Comment on above: Performed By: #### G FR, CMP, CBC, REJI, KALEB PENA, LIP ####[facility] [place], [place] [address] LABORATORYOrdered By: SYSTEM SYSTEM on 01-29-2025 Albumin BCP dye [Mass/Vol] 3.8 G/dL Normal 3.5 - 5.0 G/dL AO ADM SS Albumin/Globulin [Mass ratio] 0.9 {ratio} Low 1.1 - 2.5 ratio AO ADM SS ALP [Catalytic activity/Vol] 83 U/L Normal 40 - 135 U/L AO ADM SS ALT With P-5'-P [Catalytic activity/Vol] 38 U/L Normal 14 - 59 U/L AO ADM SS AST With P-5'-P [Catalytic activity/Vol] 15 U/L Normal 10 - 40 U/L AO ADM SS Basophils (Bld) [#/Vol] 0.1 103/mcL Normal 0.0 - 0.3 10^3/mcL AO Workflow SS Basophils/100 WBC (Bld) [...] 29 mmol/L AO ADM SS Creatinine [Mass/Vol] 0.68 mg/dL Normal 0.51 - 0.95 mg/dL AO ADM SS Electrolyte Balance 7.0 mEq/L Normal 4.0 - 15 .0 mEq/L AO ADM SS Eosinophil, Absolute 0.2 103/mcL Normal 0.0 - 0 .7 10^3/mcL AO Workflow SS Eosinophils/100 WBC (Bld) 1.6 % Normal 0.0 - 6.0 % AO Workflow SS Erythrocyte distribution width (RBC) [Ratio] 14.8 % Normal 11.5 - 15.5 % AO Workflow SS Estimated Glomerular Filtration Rate 111 ml/min/1.73sqm Invalid Interpretation Code AO Chemistry S Comment on above: Interpretive Data: Stages of Chronic Kidney Disease (CKD) Stage Description eGFR(ml/min/1.73 sq.m.) CKD 1 Normal kidney function or >=90 normal kindney function with possible kidney damage (ex. Proteinuria) CKD 2 Kidney damage with mild loss 60-89 of kidney function CKD 3a Mild to moderate loss of kidney 45-59 function CKD 3b Moderate to severe loss of 30-44 of kindey function CKD 4 Severe loss of kidney function 15-29 CKD 5 Kidney failure <15 Note: (go live 2024) the eGFR calculation was updated to the 2020 CKD-EPI creatinine equation without a race factor to calculate the eGFR results. Globulin 4.3 G/dL Normal 2.7 - 4.4 G/dL AO ADM SS Glucose [Mass/Vol] 289 mg/dL High 70 - 105 mg/dL AO ADM SS Hematocrit (Bld) [Volume fraction] 44.8 % Normal 34.0 - 46.0 % AO Workflow SS Hemoglobin (Bld) [Mass/Vol] 15.3 G/dL Normal 12.0 - 16.0 G/dL AO Workflow SS Lipase [Catalytic activity/Vol] 50 U/L Normal 16 - 77 U/L AO ADM SS Lymphocytes (Bld) [#/Vol] 4.7 103/mcL High 0.9 - 4.3 10^3/mcL AO Workflow SS Lymphocytes/100 WBC (Bld) 43.1 % High 20.0 - 40.0 % AO Workflow SS MCH (RBC) [Entitic mass] 30.8 pg Normal 27.0 - 33.0 pg AO Workflow SS MCHC 34.1 G/dL Normal 32.0 - 36.0 G/dL AO Workflow SS MCV (RBC) [Entitic vol] 90.5 fL Normal 80.0 - 99.0 fL AO Workflow SS Monocyte distribution width Auto (Bld) [Entitic vol] 18.37 1 Normal 0.00 - 20.00 AO Workflow SS Comment on above: Result Comment: For ED adult patients suspected of sepsis, MDW<=20.0 does not rule out sepsis or risk of sepsis Monocytes (Bld) [#/Vol] 1.1 103/mcL Normal 0.1 - 1.4 10^3/mcL AO Workflow SS Monocytes/100 WBC (Bld) 10.1 % Normal 2.0 - 13.0 % AO Workflow SS Neutrophils (Bld) [#/Vol] 4.8 103/mcL Normal 2.3 - 8.1 10^3/mcL AO Workflow SS Neutrophils/100 WBC (Bld) 44.7 % Low 50.0 - 75.0 % AO Workflow SS Platelet mean volume (Bld) [Entitic vol] 8.4 fL Normal 6.6 - 10.5 fL AO Workflow SS Platelets (Bld) [#/Vol] 186 103/mcL Normal 150 - 450 10^3/mcL AO Workflow SS Potassium [Moles/Vol] 4.0 mmol/L Normal 3.5 - 5.1 mmol/L AO ADM SS Protein [Mass/Vol] 8.1 G/dL Normal 6.4 - 8.2 G/dL AO ADM SS RBC (Bld) [#/Vol] 4.95 106/mcL Normal 4.10 - 5.30 10^6/mcL AO Workflow SS Sodium [Moles/Vol] 132 mmol/L Low 136 - 145 mmol/L AO ADM SS Urea nitrogen [Mass/Vol] 15 mg/dL Normal 7 - 18 mg/dL AO ADM SS Urea nitrogen/Creatinine [Mass ratio] 22 ratio Normal 7 - 27 ratio AO ADM SS WBC (Bld) [#/Vol] 10.8 103/mcL Normal 4.5 - 10.8 10^3/mcL AO Workflow SS LABORATORYOrdered By: Trish Murphy on 01-29-2025 Appearance (U) Cloudy *ABN* (01/29/25 11:13 PM) Invalid Interpretation Code Clear AO Auto Urine SS Bacteria LM.HPF (Urine sed) [#/Area] 2 /[HPF] Invalid Interpretation Code Negative AO Auto Urine SS Bilirubin Ql (U) Negative (01/29/25 11:13 PM) Normal Negative AO Auto Urine SS Color (U) Yellow (01/29/25 11:13 PM) Normal AO Auto Urine SS Glucose Test strip (U) [Mass/Vol] >=1000 mg/dL Invalid Interpretation Code Negative AO Auto Urine SS HCG ( test) Ql Negative (01/29/25 11:13 PM) Normal AO Manual Urine SS Hemoglobin Auto test strip (U) [Mass/Vol] Trace (01/29/25 11:13 PM) Normal Negative AO Auto Urine SS Ketones Ql (U) Trace mg/dL Invalid Interpretation Code Negative AO Auto Urine SS test (u) int Not detected Invalid Interpretation Code AO Manual Urine SS UA Leuk Est Trace (01/29/25 11:13 PM) Normal Negative AO Auto Urine SS UA Nitrite Negative (01/29/25 11:13 PM) Normal Negative AO Auto Urine SS UA pH 8.0 (01/29/25 11:13 PM) Normal 5.0 - 8.0 AO Auto Urine SS UA Protein 100 mg/dL Invalid Interpretation Code Negative AO Auto Urine SS UA RBC 0-2 /HPF Normal 0-2 AO Auto Urine SS UA Spec Grav 1.020 (01/29/25 11:13 PM) Normal 1.015-1.02 5 AO Auto Urine SS UA Specimen Type Clean Catch (01/29/25 11:13 PM) Normal AO Auto Urine SS UA Squam Epithelial Negative Normal 0-20 AO Au to Urine SS UA Trip Gisselle Crystals 3+ /HPF Normal AO A uto Urine SS UA Urobilinogen 0.2 E.U./dL Normal 0.2-1.0 AO Auto Urine SS WBC LM.HPF (Urine sed) [#/Area] 25-50 /HPF Invalid Interpretation Code 0-5 AO Auto Urine SS No Panel Informationon 01-29 Culture Urine Specimen received in lab. [facility] PREGUon 01-29-2025 HCG ( test) Ql (U) Negative Normal [facility] Comment on above: Performed By: #### P REGU, UAMIC, UA ####[place] [address] [place], [place] [address] test (u) int Not detected Invalid Interpretation Code [facility] Comment on above: Performed By: #### P REGU, UAMIC, UA ####[place] [address] [place], [place] [address] UAon 01-29-2025 Color (U) Yellow Normal [facility] Comment on above: Performed By: #### P REGU, UAMIC, UA ####[place] [address] [place] [address] Glucose (U) [Mass/Vol] mg/dL Abnormal Negative [facility] Comment on above: Performed By: #### P REGU, UAMIC, UA ####[place] [address] [place] [address] Ketones Ql (U) Trace Abnormal Negative [facility] Comment on above: Performed By: #### P REGU, UAMIC, UA ####[place] [address] [place] [address] UA Appear Cloudy Abnormal Clear [facility] Comment on above: Performed By: #### P REGU, UAMIC, UA ####[place] [address] [place] [address] UA Blood Trace Normal Negative [facility] Comment on above: Performed By: #### P REGU, UAMIC, UA ####[place] [address] [place] [address] UA Leuk Est Trace Normal Negative [facility] Comment on above: Performed By: #### P REGU, UAMIC, UA ####[place] [address] [place] [address] UA Nitrite Negative Normal Negative [facility] Comment on above: Performed By: #### P REGU, UAMIC, UA ####[place] [address] [place] [address] UA pH 8.0 Normal 5.0 - 8.[address] [facility] Comment on above: Performed By: #### P REGU, UAMIC, UA ####[place] [address] [place] [address] UA Protein 100 mg/dL Abnormal Negative [facility] Comment on above: Performed By: #### P REGU, UAMIC, UA ####[place] [address] [place] [address] UA Spec Grav 1.020 Normal 1.015-1.02 [address] [facility] Comment on above: Performed By: #### P REGU, UAMIC, UA ####[place] [address] [place], [place] [address] UA Specimen Type Clean Catch Normal [facility] Comment on above: Performed By: #### P REGU, UAMIC, UA ####[place] [address] [place], [place] [address] UA Urobilinogen 0.2 E.U./dL Normal 0.2-1.[address] [facility] Comment on above: Performed By: #### P REGU, UAMIC, UA ####[place] [address] Urobilinogen (U) [Mass/Vol] Negative Normal Negative [facility] Comment on above: Performed By: #### P REGU, UAMIC, UA ####[place] [address] [address] UAMICon 01-29-2025 UA Bacteria 2+ /hpf Abnormal Negative [facility] Comment on above: Performed By: #### P REGU, UAMIC, UA ####Sarwat [address] [address] UA RBC 0-2 Normal 0-[address] [facility] Comment on above: Performed By: #### P REGU, UAMIC, UA ####Sarwat [id number] [place], [place] [address] UA Squam Epithelial Negative Normal 0-20 [facility] Comment on above: Performed By: #### P REGU, UAMIC, UA ####Sarwat [address] [place], [place] [address] UA Trip Gisselle Crystals 3+ /hpf Normal [facility] Comment on above: Performed By: #### P REGU, UAMIC, UA ####Sarwat [address] [place] [address] UA WBC 25-50 Abnormal 0-[address] [facility] [facility] Comment on above: Performed By: #### P REGU, UAMIC, UA ####[address] [place], [place] [address] Cobalamin (Vitamin B12) [Mas s/Vol]on 01-25-2025 Interpretation and review of laboratory results Normal [facility] Comprehensive metabolic 2000 panelon 01-25-2025 Albumin [Mass/Vol] 4.3 g/dL 3.9 - 4.9 g/dL [facility] ALP [Catalytic activity/Vol] 67 U/L 34 - 123 U/L [facility] ALT [Catalytic activity/Vol] 35 U/L 7 - 38 U/L [facility] Anion gap [Moles/Vol] 14 mmol/L 8 - 15 mmol/L [facility] AST [Catalytic activity/Vol] 26 U/L 13 - 35 U/L [facility] Bilirubin [Mass/Vol] 0.3 mg/dL 0.2 - 1 .3 mg/dL [facility] Calcium [Mass/Vol] 9.4 mg/dL 8.5 - 10. 2 mg/dL [facility] Chloride [Moles/Vol] 101 mmol/L 98 - 10 7 mmol/L [facility] CO2 [Moles/Vol] 19 mmol/L Low 22 - 30 mmol/L [facility] Creatinine [Mass/Vol] 0.65 mg/dL 0.58 - 0.96 mg/dL [facility] GFR/1.73 sq M.predicted among non-blacks MDRD (S/P/Bld) [Vol rate/Area] 112 mL/min/{1.73_m2} - PINF [facility] Comment on above: Estimated Glomerular Filtration Rate (eGFR) is calculated using the 2020 CKD-EPI creatinine equation. This equation utilizes serum creatinine, sex, and age as parameters. The creatinine assay has traceable calibration to isotope dilution-mass spectrometry. Refer to KDIGO guidelines for clinical interpretation. In patients with unstable renal function, e.g. those with acute kidney injury, the eGFR may not accurately reflect actual GFR. Glucose [Mass/Vol] 309 mg/dL High 74 - 99 mg/dL [facility] Comment on above: The [place] Diabete s Association (ADA) provides guidance for cutoff values [...] Standards of Medical Care in Diabetes 2016, [place] Diabetes Association. Diabetes Care. 2016.39(Suppl 1). Potassium [Moles/Vol] 4.5 mmol/L 3.7 - 5.1 mmol/L [facility] Protein [Mass/Vol] 7.8 g/dL 6.3 - 8.0 g/dL [facility] Sodium [Moles/Vol] 134 mmol/L Low 136 - 144 mmol/L [facility] Urea nitrogen [Mass/Vol] 12 mg/dL 7 - 21 mg/dL [facility] LIPID PANEL, NONFASTINGon Cholesterol [Mass/Vol] 238 mg/dL High NINF - 200 mg/dL [facility] Comment on above: <200 mg/dL, Desirabl e 200-239 mg/dL, Borderline high >239 mg/dL, High HDL Cholesterol, Nonfasting 40 mg/dL 39 - PINF mg/dL [facility] Comment on above: 40-59 mg/dL, Accepta ble >59 mg/dL, High: Negative risk factor for coronary heart disease <40 mg/dL, Low: Positive risk factor for coronary heart disease LDL Cholesterol Calculated, Nonfasting 170 mg/dL High NINF - 100 mg/dL [facility] Comment on above: <100 mg/dL, Optimal 100-129 mg/dL, Near optimal/above optimal 130-159 mg/dL, Borderline high 160-189 mg/dL, High >189 mg/dL, Very high Secondary prevention optimal LDL Cholesterol levels are recommended to be <70 mg/dL LDL cholesterol is calculated using the Mancera-NIH equation. LDL/HDL Ratio, Nonfasting 4.25 mg/dL High NINF - 2.54 mg/dL [facility] Comment on above: Reference: 1. National Cholesterol Education Program ATP III Guideline At-A-Glance Quick Desk Reference: National Heart, Lung, and Blood [place]. National Institutes of Health. 2001: NIH Publication No. 01-3305. 2. An International Atherosclerosis Society position paper: global recommendations for the management of dyslipidemia: executive summary, Atherosclerosis. 2014: 232(2):410-413. Non HDL Cholesterol, Nonfasting 198 mg/dL High NINF - 130 mg/dL [facility] Comment on above: <130 mg/dL, Optimal 130-159 mg/dL, Near optimal/above optimal 160-189 mg/dL, Borderline high 190-219 mg/dL, High >219 mg/dL, Very high Secondary prevention optimal non HDL Cholesterol levels are recommended to be <100 mg/dL Total Chol/HDL Ratio, Nonfasting 5.95 mg/dL High NINF - 5.10 mg/dL [facility] Triglycerides, Nonfasting 151 mg/dL High NINF - 150 mg/dL [facility] Comment on above: <150 mg/dL, Normal 150-199 mg/dL, Borderline high 200-499 mg/dL, High >499 mg/dL, Very high VLDL Cholesterol, Nonfasting 29 mg/dL NINF - 30 mg/dL [facility] MAGNESIUMon 01-25-2025 Magnesium [Mass/Vol] 1.8 mg/dL 1.7 - 2 .3 mg/dL [facility] Magnesium [Mass/Vol]on 01-25 Interpretation and review of laboratory results Normal [facility] No Panel Informationon 01-25 Interpretation and review of laboratory results Abnormal [facility] THYROID STIMULATING HORMONEo n 01-25-2025 TSH Qn 1.910 m[IU]/L [facility] Comment on above: If the patient is pr egnant, TSH reference range varies by gestational period: First Trimester (weeks 9-12): 0.180-2.990 mIU/L Second Trimester: 0.110-3.980 mIU/L Third Trimester: 0.480-4.710 mIU/L Malcolm Alvarenga et al. A Practical Approach for the Verifications and Determination of Site- and Trimester-Specific Reference Intervals for Thyroid Function tests in . Thyroid, 2019:29:3:412-420. Chaim E, et al. 2017 Guidelines of the [place] Thyroid Association for the Diagnosis and Management of Thyroid Disease during and the . Thyroid, 2017:27:3:315-389. TSH Qnon 01-25-2025 Interpretation and review of laboratory results Normal [facility] VITAMIN B12on 01-25-2025 Cobalamin (Vitamin B12) [Mass/Vol] 602 pg/mL 232 - 1245 pg/mL [facility] CBC W Auto Differential pane l (Bld)on 01-24-2025 Basophils (Bld) [#/Vol] 0.09 10*3/uL [facility] Basophils/100 WBC (Bld) 1.0 % C [facility] Differential cell count method Nom (Bld) Auto [facility] Eosinophils (Bld) [#/Vol] 0.11 10*3/uL [facility] Eosinophils/100 WBC (Bld) 1.2 % [facility] Erythrocyte distribution width (RBC) [Ratio] 14.2 % 11.5 - 15.0 % [facility] Hematocrit (Bld) [Volume fraction] 44.0 % 36.0 - 46.0 % [facility] Hemoglobin (Bld) [Mass/Vol] 14.9 g/dL 11.5 - 15.5 g/dL [facility] Immature granulocytes (Bld) [#/Vol] 0.11 10*3/uL High [facility] Immature granulocytes/100 WBC (Bld) 1.2 % [facility] Interpretation and review of laboratory results Abnormal [facility] Lymphocytes (Bld) [#/Vol] 3.36 10*3/uL [facility] Lymphocytes/100 WBC (Bld) 35.6 % [facility] MCH (RBC) [Entitic mass] 30.7 pg 26.0 - 34.0 pg [facility] MCHC (RBC) [Mass/Vol] 33.9 g/dL 30.5 - 36.0 g/dL [facility] MCV (RBC) [Entitic vol] 90.5 fL 80.0 - 100.0 fL [facility] Monocytes (Bld) [#/Vol] 0.89 10*3/uL High [facility] Monocytes/100 WBC (Bld) 9.4 % C [facility] Neutrophils (Bld) [#/Vol] 4.88 10*3/uL [facility] Neutrophils/100 WBC (Bld) 51.6 % [facility] Nucleated RBC (Bld) [#/Vol] [facility] Nucleated RBC/100 WBC (Bld) [Ratio] 0.0 % /100 WBC [facility] Platelet mean volume (Bld) [Entitic vol] 11.3 fL 9.0 - 12.7 fL [facility] Platelets (Bld) [#/Vol] 193 10*3/uL [facility] RBC (Bld) [#/Vol] 4.86 10*6/uL 3.90 - 5.20 m/uL [facility] WBC (Bld) [#/Vol] 9.44 10*3/uL [facility] Urinalysis complete panel (U )on 01-24-2025 Bacteria uL uL High - 941 uL [facility] Bilirubin Ql (U) Negative Negative [facility] Clarity (Unsp spec) Turbid Abnormal Clear [facility] Color (U) Yellow Yellow [facility] Epithelial cells LM.HPF (Urine sed) [#/Area] Moderate /HPF [facility] Glucose Test strip (U) [Mass/Vol] 2+ Abnormal Negative [facility] Hemoglobin Ql (U) Negative Negative [facility] Hyaline casts (Urine sed) [#/Area] /[LPF] Abnormal 0 /LPF [facility] Interpretation and review of laboratory results Abnormal [facility] Ketones Ql (U) Negative Negative [facility] Leukocyte esterase Test strip Ql (U) 2+ Abnormal Negative [facility] Nitrite Ql (U) Negative Negative [facility] pH (U) High 5.0 - 8.0 [facility] Protein (U) [Mass/Vol] 4+ Abnormal Negative Cl [facility] RBC LM.HPF (Urine sed) [#/Area] 0-2 /HPF 0-2 /HPF [facility] Specific gravity (U) [Rel density] 1.041 High 1.005 - 1.030 [facility] Triple phosphate crystals LM.HPF (Urine sed) [#/Area] Many Abnormal None Seen /HPF [facility] Urobilinogen Ql (U) 1.0 EU/dL 0.2-1.0 EU/dL [facility] WBC LM.HPF (Urine sed) [#/Area] /[HPF] Abnormal 0-5 /HPF [facility] This test was alicia wick and its performance characteristics determined by [facility] [place] ([facility]). It has not been cleared or approved by the FDA. [facility] is regulated under CLIA as qualified to perform high-complexity testing. This test is used for clinical purposes. It should not be regarded as investigational or for research. [facility] .Auto Diffon 01-07-2025 Basophil, Absolute 0.1 10 3/mcL Normal 0.0-0.3 [facility] Comment on above: Performed By: #### G FR, CBC, MDW, BMP, ADIFF, ANEU ####[place] [address] [place], [place] [address] Basophils/100 WBC (Bld) 0.6 % Normal 0.0-2.[address] [facility] Comment on above: Performed By: #### G FR, CBC, MDW, BMP, ADIFF, ANEU ####[address] [place], [place] [address] Eosinophil, Absolute 0.1 10 3/mcL Normal 0.0-0.7 [facility] Comment on above: Performed By: #### G FR, CBC, MDW, BMP, ADIFF, ANEU ####[place] [address] [place], [place] [address] Eosinophils/100 WBC (Bld) 1.4 % Normal 0.0-6.[address] [facility] Comment on above: Performed By: #### G FR, CBC, MDW, BMP, ADIFF, ANEU ####[address] [place], [place] [address] Lymphocyte, Absolute 3.9 10 3/mcL Normal 0.9-4.3 [facility] Comment on above: Performed By: #### G FR, CBC, MDW, BMP, ADIFF, ANEU ####[place] [address] [place], [place] [address] Lymphocytes/100 WBC (Bld) 38.8 % Normal 20.0-40.[address] [facility] Comment on above: Performed By: #### G FR, CBC, MDW, BMP, ADIFF, ANEU ####[address] [place], [place] [address] Monocyte, Absolute 0.9 10 3/mcL Normal 0.1-1.4 [facility] Comment on above: Performed By: #### G FR, CBC, MDW, BMP, ADIFF, ANEU ####[address] [place], [place] [address] Monocytes/100 WBC (Bld) 9.0 % Normal 2.0-13.0 [facility] Comment on above: Performed By: #### G FR, CBC, MDW, BMP, ADIFF, ANEU ####[address] [place], [place] [address] Neutrophils/100 WBC (Bld) 50.2 % Normal 50.0-75.[address] [facility] Comment on above: Performed By: #### G FR, CBC, MDW, BMP, ADIFF, ANEU ####[address] [place], [place] [address] .GFRon 01-07-2025 Estimated Glomerular Filtration Rate 108 ml/min/1.73sqm Normal [facility] Comment on above: Result Comment: Stages of Chronic Kidney Disease (CKD) Stage Description eGFR(ml/min/1.73 sq.m.) CKD 1 Normal kidney function or >=90 normal kindney function with possible kidney damage (ex. Proteinuria) CKD 2 Kidney damage with mild loss 60-89 of kidney function CKD 3a Mild to moderate loss of kidney 45-59 function CKD 3b Moderate to severe loss of 30-44 of kindey function CKD 4 Severe loss of kidney function 15-29 CKD 5 Kidney failure <15 Note: (go live 2024) the eGFR calculation was updated to the 2020 CKD-EPI creatinine equation without a race factor to calculate the eGFR results. Performed By: #### G FR, CBC, MDW, BMP, ADIFF, ANEU ####[address] [place], [place] [address] .MDWon 01-07-2025 Monocyte Distribution Width 19.30 Normal 0.00-20.[address] [facility] Comment on above: Result Comment: For ED adult patients suspected of sepsis, MDW<=20.0 does not rule out sepsis or risk of sepsis Performed By: #### G FR, CBC, MDW, BMP, ADIFF, ANEU ####[address] [place], [place] [address] .NEUABSon 01-07-2025 Neutrophil, Absolute 5.0 10 3/mcL Normal 2.3-8.1 [facility] Comment on above: Performed By: #### G FR, CBC, MDW, BMP, ADIFF, ANEU ####[facility] [place], [place] [address] BMPon 01-07-2025 BUN/Creatinine Ratio 25 ratio Normal 7-27 [facility] Comment on above: Performed By: #### G FR, CBC, MDW, BMP, ADIFF, ANEU ####[facility] [place], [place] [address] Calcium [Mass/Vol] 9.7 mg/dL Normal 8.4-10.2 [facility] Comment on above: Performed By: #### G FR, CBC, MDW, BMP, ADIFF, ANEU ####[facility] [place], [place] [address] Chloride [Moles/Vol] 103 mmol/L Normal 98-107 [facility] Comment on above: Performed By: #### G FR, CBC, MDW, BMP, ADIFF, ANEU ####[facility] [place], [place] [address] CO2 [Moles/Vol] 27 mmol/L Normal 22-[address] [facility] Comment on above: Performed By: #### G FR, CBC, MDW, BMP, ADIFF, ANEU ####[facility] [place], [place] [address] Creatinine [Mass/Vol] 0.71 mg/dL Normal 0.51-0.95 [facility] Comment on above: Performed By: #### G FR, CBC, MDW, BMP, ADIFF, ANEU ####[facility] [place], [place] [address] Electrolyte Balance 7.0 mEq/L Normal 4.0-15.0 [facility] Comment on above: Performed By: #### G FR, CBC, MDW, BMP, ADIFF, ANEU ####[facility] [place], [place] [address] Glucose [Mass/Vol] 293 mg/dL High 70-105 [facility] Comment on above: Performed By: #### G FR, CBC, MDW, BMP, ADIFF, ANEU ####[address] [place], [place] [address] Potassium [Moles/Vol] 4.5 mmol/L Normal 3.5-5.1 [facility] Comment on above: Performed By: #### G FR, CBC, MDW, BMP, ADIFF, ANEU ####[address] [place], [place] [address] Sodium [Moles/Vol] 137 mmol/L Normal 136-145 [facility] Comment on above: Performed By: #### G FR, CBC, MDW, BMP, ADIFF, ANEU ####[address] [place], [place] [address] Urea nitrogen [Mass/Vol] 18 mg/dL Normal 7-[address] [facility] Comment on above: Performed By: #### G FR, CBC, MDW, BMP, ADIFF, ANEU ####[address] [place], [place] [address] CBCon 01-07-2025 Erythrocyte distribution width (RBC) [Ratio] 14.9 % Normal 11.5-15.[address] [facility] Comment on above: Performed By: #### G FR, CBC, MDW, BMP, ADIFF, ANEU ####[address] [place], [place] [address] Hematocrit (Bld) [Volume fraction] 43.1 % Normal 34.0-46.[address] [facility] Comment on above: Performed By: #### G FR, CBC, MDW, BMP, ADIFF, ANEU ####[address] [place], [place] [address] Hgb 14.5 G/dL Normal 12.0-16.[address] [facility] Comment on above: Performed By: #### G FR, CBC, MDW, BMP, ADIFF, ANEU ####[address] [place], [place] [address] MCH (RBC) [Entitic mass] 30.6 pg Normal 27.0-33.[address] [facility] Comment on above: Performed By: #### G FR, CBC, KALEB, BMP, ADIFF, ANEU ####[address] [place], [place] [address] MCHC 33.6 G/dL Normal 32.0-36.[address] [facility] Comment on above: Performed By: #### G FR, CBC, KALEB, BMP, ADIFF, ANEU ####[address] [place], [place] [address] MCV (RBC) [Entitic vol] 90.8 fL Normal 80.0-99.0 [facility] Comment on above: Performed By: #### G FR, CBC, KALEB, BMP, ADIFF, ANEU ####[address] [place], [place] [address] Platelet 162 10 3/mcL Normal 150-[address] [facility] Comment on above: Performed By: #### G FR, CBC, W, BMP, ADIFF, ANEU ####[address] [place], [place] [address] Platelet mean volume (Bld) [Entitic vol] 8.5 fL Normal 6.6-10.[address] [facility] Comment on above: Performed By: #### G FR, CBC, MDW, BMP, ADIFF, ANEU ####[address] [place], [place] [address] RBC 4.75 10 6/mcL Normal 4.10-5.[address] [facility] Comment on above: Performed By: #### G FR, CBC, W, BMP, ADIFF, ANEU ####[address] [place], [place] [address] WBC 10.0 10 3/mcL Normal 4.5-10.[address] [facility] Comment on above: Performed By: #### G FR, CBC, MDW, BMP, ADIFF, ANEU ####[address] [place], [place] [address] LABORATORYOrdered By: Quynh canales on 01-07-2025 Appearance (U) Cloudy *ABN* (01/07/25 8:07 PM) Invalid Interpretation Code Clear AO Auto Urine SS Bacteria LM.HPF (Urine sed) [#/Area] 4 /[HPF] Invalid Interpretation Code Negative AO Auto Urine SS Bilirubin Ql (U) Negative (01/07/25 8:07 PM) Normal Negative AO Auto Urine SS Color (U) Yellow (01/07/25 8:07 PM) Normal AO Auto Urine SS Crystals.amorphous LM.HPF (Urine sed) [#/Area] 2 /[HPF] Normal AO Auto Urine SS Glucose Test strip (U) [Mass/Vol] >=1000 mg/dL Invalid Interpretation Code Negative AO Auto Urine SS HCG ( test) Ql Negative (01/07/25 8:07 PM) Normal AO Manual Urine SS Hemoglobin Auto test strip (U) [Mass/Vol] Large *ABN* (01/07/25 8:07 PM) Invalid Interpretation Code Negative AO Auto Urine SS Ketones Ql (U) Trace mg/dL Invalid Interpretation Code Negative AO Auto Urine SS test (u) int Not detected Invalid Interpretation Code AO Manual Urine SS UA Leuk Est Small *ABN* (01/07/25 8:07 PM) Invalid Interpretation Code Negative AO Auto Urine SS UA Nitrite Positive *ABN* (01/07/25 8:07 PM) Invalid Interpretation Code Negative AO Auto Urine SS UA pH 7.0 (01/07/25 8:07 PM) Normal 5.0 - 8.0 AO Auto Urine SS UA Protein 100 mg/dL Invalid Interpretation Code Negative AO Auto Urine SS UA RBC LOADED /HPF Invalid Interpretation Code 0-2 AO Auto Urine SS UA Spec Grav 1.020 (01/07/25 8:07 PM) Normal 1.015-1.02 5 AO Auto Urine SS UA Specimen Type Cook Catheter (01/07/25 8:07 PM) Normal AO Auto Urine SS UA Squam Epithelial 3-5 /HPF Normal 0-20 AO Au to Urine SS UA Urobilinogen 0.2 E.U./dL Normal 0.2-1.0 AO Auto Urine SS WBC LM.HPF (Urine sed) [#/Area] LOADED /HPF Invalid Interpretation Code 0-5 AO Auto Urine SS LABORATORYOrdered By: SYSTEM SYSTEM on 01-07-2025 Basophils (Bld) [#/Vol] 0.1 103/mcL Normal 0.0 - 0.3 10^3/mcL AO Workflow SS Basophils/100 WBC (Bld) 0.6 % Normal 0.0 - 2.5 % AO Workflow SS Calcium [Mass/Vol] 9.7 mg/dL Normal 8.4 - 10. 2 mg/dL AO ADM SS Chloride [Moles/Vol] 103 mmol/L Normal 98 - 10 7 mmol/L AO ADM SS CO2 [Moles/Vol] 27 mmol/L Normal 22 - 29 mmol/L AO ADM SS Creatinine [Mass/Vol] 0.71 mg/dL Normal 0.51 - 0.95 mg/dL AO ADM SS Electrolyte Balance 7.0 mEq/L Normal 4.0 - 15 .0 mEq/L AO ADM SS Eosinophil, Absolute 0.1 103/mcL Normal 0.0 - 0 .7 10^3/mcL AO Workflow SS Eosinophils/100 WBC (Bld) 1.4 % Normal 0.0 - 6.0 % AO Workflow SS Erythrocyte distribution width (RBC) [Ratio] 14.9 % Normal 11.5 - 15.5 % AO Workflow SS Estimated Glomerular Filtration Rate 108 ml/min/1.73sqm Invalid Interpretation Code AO Chemistry S Comment on above: Interpretive Data: Stages of Chronic Kidney Disease (CKD) Stage Description eGFR(ml/min/1.73 sq.m.) CKD 1 Normal kidney function or >=90 normal kindney function with possible kidney damage (ex. Proteinuria) CKD 2 Kidney damage with mild loss 60-89 of kidney function CKD 3a Mild to moderate loss of kidney 45-59 function CKD 3b Moderate to severe loss of 30-44 of kindey function CKD 4 Severe loss of kidney function 15-29 CKD 5 Kidney failure <15 Note: (go live 2024) the eGFR calculation was updated to the 2020 CKD-EPI creatinine equation without a race factor to calculate the eGFR results. Glucose [Mass/Vol] 293 mg/dL High 70 - 105 mg/dL AO ADM SS Hematocrit (Bld) [Volume fraction] 43.1 % Normal 34.0 - 46.0 % AO Workflow SS Hemoglobin (Bld) [Mass/Vol] 14.5 G/dL Normal 12.0 - 16.0 G/dL AO Workflow SS Lymphocytes (Bld) [#/Vol] 3.9 103/mcL Normal 0.9 - 4.3 10^3/mcL AO Workflow SS Lymphocytes/100 WBC (Bld) 38.8 % Normal 20.0 - 40.0 % AO Workflow SS MCH (RBC) [Entitic mass] 30.6 pg Normal 27.0 - 33.0 pg AO Workflow SS MCHC 33.6 G/dL Normal 32.0 - 36.0 G/dL AO Workflow SS MCV (RBC) [Entitic vol] 90.8 fL Normal 80.0 - 99.0 fL AO Workflow SS Monocyte distribution width Auto (Bld) [Entitic vol] 19.30 1 Normal 0.00 - 20.00 AO Workflow SS Comment on above: Result Comment: For ED adult patients suspected of sepsis, MDW<=20.0 does not rule out sepsis or risk of sepsis Monocytes (Bld) [#/Vol] 0.9 103/mcL Normal 0.1 - 1.4 10^3/mcL AO Workflow SS Monocytes/100 WBC (Bld) 9.0 % Normal 2.0 - 13.0 % AO Workflow SS Neutrophils (Bld) [#/Vol] 5.0 103/mcL Normal 2.3 - 8.1 10^3/mcL AO Workflow SS Neutrophils/100 WBC (Bld) 50.2 % Normal 50.0 - 75.0 % AO Workflow SS Platelet mean volume (Bld) [Entitic vol] 8.5 fL Normal 6.6 - 10.5 fL AO Workflow SS Platelets (Bld) [#/Vol] 162 103/mcL Normal 150 - 450 10^3/mcL AO Workflow SS Potassium [Moles/Vol] 4.5 mmol/L Normal 3.5 - 5.1 mmol/L AO ADM SS RBC (Bld) [#/Vol] 4.75 106/mcL Normal 4.10 - 5.30 10^6/mcL AO Workflow SS Sodium [Moles/Vol] 137 mmol/L Normal 136 - 145 mmol/L AO ADM SS Urea nitrogen [Mass/Vol] 18 mg/dL Normal 7 - 18 mg/dL AO ADM SS Urea nitrogen/Creatinine [Mass ratio] 25 ratio Normal 7 - 27 ratio AO ADM SS WBC (Bld) [#/Vol] 10.0 103/mcL Normal 4.5 - 10.8 10^3/mcL AO Workflow SS PREGUon 01-07-2025 HCG ( test) Ql (U) Negative Normal [facility] Comment on above: Performed By: #### P REGU ####[address] [address] test (u) int Not detected Invalid Interpretation Code [facility] Comment on above: Performed By: #### P REGU ####[address] [address] UAon 01-07-2025 Color (U) Yellow Normal [facility] Comment on above: Performed By: #### A DIFF, CMP, LIP, MDW, GFR, CBC, ANEU #### [address] [address] Glucose (U) [Mass/Vol] mg/dL Abnormal Negative [facility] Comment on above: Performed By: #### A DIFF, CMP, LIP, MDW, GFR, CBC, ANEU #### [address] [address] Ketones Ql (U) Trace Abnormal Negative [facility] Comment on above: Performed By: #### A DIFF, CMP, LIP, MDW, GFR, CBC, ANEU #### [address] [address] UA Appear Cloudy Abnormal Clear [facility] Comment on above: Performed By: #### A DIFF, CMP, LIP, MDW, GFR, CBC, ANEU #### [address] [address] UA Blood Large Abnormal Negative [facility] Comment on above: Performed By: #### A DIFF, CMP, LIP, MDW, GFR, CBC, ANEU #### [address] [address] UA Leuk Est Small Abnormal Negative [facility] Comment on above: Performed By: #### A DIFF, CMP, LIP, MDW, GFR, CBC, ANEU #### [address] [address] UA Nitrite Positive Abnormal Negative [facility] Comment on above: Performed By: #### A DIFF, CMP, LIP, MDW, GFR, CBC, ANEU #### [address] [address] UA pH 7.0 Normal 5.0 - 8.[address] [facility] Comment on above: Performed By: #### A DIFF, CMP, LIP, MDW, GFR, CBC, ANEU #### [address] [address] UA Protein 100 mg/dL Abnormal Negative [facility] Comment on above: Performed By: #### A DIFF, CMP, LIP, MDW, GFR, CBC, ANEU #### [address] [address] UA Spec Grav 1.020 Normal 1.015-1.02 [address] [facility] Comment on above: Performed By: #### A DIFF, CMP, LIP, MDW, GFR, CBC, ANEU #### [address] [address] UA Specimen Type Cook Catheter Normal [facility] Comment on above: Performed By: #### A DIFF, CMP, LIP, MDW, GFR, CBC, ANEU #### [address] [address] UA Urobilinogen 0.2 E.U./dL Normal 0.2-1.[address] [facility] Comment on above: Performed By: #### A DIFF, CMP, LIP, MDW, GFR, CBC, ANEU #### [address] [address] Urobilinogen (U) [Mass/Vol] Negative Normal Negative [facility] Comment on above: Performed By: #### A DIFF, CMP, LIP, MDW, GFR, CBC, ANEU #### [address] [address] UAMICon 01-07-2025 UA Amorphus 2+ /hpf Normal [facility] Comment on above: Performed By: #### A DIFF, CMP, LIP, MDW, GFR, CBC, ANEU #### [address] [address] UA Bacteria 4+ /hpf Abnormal Negative [facility] Comment on above: Performed By: #### A DIFF, CMP, LIP, MDW, GFR, CBC, ANEU #### [place] [facility] [address] [place], [place] [address] UA RBC LOADED Abnormal 0-[address] [facility] Comment on above: Performed By: #### A DIFF, CMP, LIP, MDW, GFR, CBC, ANEU #### [facility] [address] [place], [place] [address] UA Squam Epithelial 3-5 Normal 0-20 [facility] Comment on above: Performed By: #### A DIFF, CMP, LIP, MDW, GFR, CBC, ANEU #### [facility] [address] [place], [place] [address] UA WBC LOADED Abnormal 0-[address] [facility] Comment on above: Performed By: #### A DIFF, CMP, LIP, MDW, GFR, CBC, ANEU #### [place] [address] [place], [place] [address] XR ABDOMEN APon 01-07-2025 XR ABDOMEN AP ORIGINAL EXAMINATION: ONE SUPINE XRAY VIEW(S) OF THE ABDOMEN 01/07/2025 8:38 pm COMPARISON: CT abdomen pelvis 12/14/2024 HISTORY: ORDERING SYSTEM PROVIDED HISTORY: Reason for Exam: Flank Pain FINDINGS: Nonspecific bowel gas pattern without evidence of obstruction. Stable bilateral calcifications correlating with probable fat infarcts on the prior CT. No acute osseous abnormality. IMPRESSION: Stable soft tissue calcifications with no definite renal stones. No evidence of bowel obstruction. Interpreted by: Xavier Briones Preliminary Report By: Xavier Briones Electronically signed By Xavier Briones Dictated Date: 01/07/2025 9:05:56 PM Prelim Date: 01/07/2025 9:12:23 PM Sign Date: 01/07/2025 9:12:23 PM Ordering Provider: ELMIRA Eli [facility] .Auto Diffon 12-14-2024 Basophil, Absolute 0.1 10 3/mcL Normal 0.0-0.3 [facility] Comment on above: Performed By: #### A DIFF, CMP, LIP, MDW, GFR, CBC, ANEU #### [address] [place], [place] [address] Basophils/100 WBC (Bld) 0.7 % Normal 0.0-2.[address] [facility] Comment on above: Performed By: #### A DIFF, CMP, LIP, MDW, GFR, CBC, ANEU #### [address] [address] Eosinophil, Absolute 0.1 10 3/mcL Normal 0.0-0.7 [facility] Comment on above: Performed By: #### A DIFF, CMP, LIP, MDW, GFR, CBC, ANEU #### [address] [address] Eosinophils/100 WBC (Bld) 1.1 % Normal 0.0-6.[address] [facility] Comment on above: Performed By: #### A DIFF, CMP, LIP, MDW, GFR, CBC, ANEU #### [address] [address] Lymphocyte, Absolute 4.2 10 3/mcL Normal 0.9-4.3 [facility] Comment on above: Performed By: #### A DIFF, CMP, LIP, MDW, GFR, CBC, ANEU #### [address] [address] Lymphocytes/100 WBC (Bld) 40.8 % High 20.0-40.[address] [facility] Comment on above: Performed By: #### A DIFF, CMP, LIP, MDW, GFR, CBC, ANEU #### [address] [address] Monocyte, Absolute 1.0 10 3/mcL Normal 0.1-1.4 [facility] Comment on above: Performed By: #### A DIFF, CMP, LIP, MDW, GFR, CBC, ANEU #### [address] [address] Monocytes/100 WBC (Bld) 9.2 % Normal 2.0-13.[address] [facility] Comment on above: Performed By: #### A DIFF, CMP, LIP, MDW, GFR, CBC, ANEU #### [address] [address] Neutrophils/100 WBC (Bld) 48.2 % Low 50.0-75.[address] [facility] Comment on above: Performed By: #### A DIFF, CMP, LIP, MDW, GFR, CBC, ANEU #### [address] [address] .GFRon 12-14-2024 Estimated Glomerular Filtration Rate 113 ml/min/1.73sqm Normal [facility] Comment on above: Result Comment: Stages of Chronic Kidney Disease (CKD) Stage Description eGFR(ml/min/1.73 sq.m.) CKD 1 Normal kidney function or >=90 normal kindney function with possible kidney damage (ex. Proteinuria) CKD 2 Kidney damage with mild loss 60-89 of kidney function CKD 3a Mild to moderate loss of kidney 45-59 function CKD 3b Moderate to severe loss of 30-44 of kindey function CKD 4 Severe loss of kidney function 15-29 CKD 5 Kidney failure <15 Note: (go live 2024) the eGFR calculation was updated to the 2020 CKD-EPI creatinine equation without a race factor to calculate the eGFR results. Performed By: #### A DIFF, CMP, LIP, MDW, GFR, CBC, ANEU ####[address] [address] .MDWon 12-14-2024 Monocyte Distribution Width 18.06 Normal 0.00-20.[address] [facility] Comment on above: Result Comment: For ED adult patients suspected of sepsis, MDW<=20.0 does not rule out sepsis or risk of sepsis Performed By: #### A DIFF, CMP, LIP, MDW, GFR, CBC, ANEU #### [address] [address] .NEUABSon 12-14-2024 Neutrophil, Absolute 5.0 10 3/mcL Normal 2.3-8.1 [facility] Comment on above: Performed By: #### A DIFF, CMP, LIP, MDW, GFR, CBC, ANEU #### [address] [address] CBCon 12-14-2024 Erythrocyte distribution width (RBC) [Ratio] 14.9 % Normal 11.5-15.[address] [facility] Comment on above: Performed By: #### A DIFF, CMP, LIP, MDW, GFR, CBC, ANEU #### [address] [address] Hematocrit (Bld) [Volume fraction] 44.4 % Normal 34.0-46.[address] [facility] Comment on above: Performed By: #### A DIFF, CMP, LIP, MDW, GFR, CBC, ANEU #### [address] [address] Hgb 15.1 G/dL Normal 12.0-16.[address] [facility] Comment on above: Performed By: #### A DIFF, CMP, LIP, MDW, GFR, CBC, ANEU #### [address] [address] MCH (RBC) [Entitic mass] 30.5 pg Normal 27.0-33.[address] [facility] Comment on above: Performed By: #### A DIFF, CMP, LIP, MDW, GFR, CBC, ANEU #### [address] [address] MCHC 34.0 G/dL Normal 32.0-36.[address] [facility] Comment on above: Performed By: #### A DIFF, CMP, LIP, MDW, GFR, CBC, ANEU #### [address] [address] MCV (RBC) [Entitic vol] 89.8 fL Normal 80.0-99.[address] [facility] Comment on above: Performed By: #### A DIFF, CMP, LIP, MDW, GFR, CBC, ANEU #### [address] [address] Platelet 194 10 3/mcL Normal 150-[address] [facility] Comment on above: Performed By: #### A DIFF, CMP, LIP, MDW, GFR, CBC, ANEU #### [address] [address] Platelet mean volume (Bld) [Entitic vol] 8.7 fL Normal 6.6-10.[address] [facility] Comment on above: Performed By: #### A DIFF, CMP, LIP, MDW, GFR, CBC, ANEU #### [address] [address] RBC 4.94 10 6/mcL Normal 4.10-5.[address] [facility] Comment on above: Performed By: #### A DIFF, CMP, LIP, MDW, GFR, CBC, ANEU #### [address] [address] WBC 10.4 10 3/mcL Normal 4.5-10.[address] [facility] Comment on above: Performed By: #### A DIFF, CMP, LIP, MDW, GFR, CBC, ANEU #### [address] [address] CMPon 12-14-2024 Albumin Level 3.7 G/dL Normal 3.5-5.[address] [facility] Comment on above: Performed By: #### A DIFF, CMP, LIP, MDW, GFR, CBC, ANEU ####[address] [address] Albumin/Globulin [Mass ratio] 0.8 {ratio} Low 1.1-2.[address] [facility] Comment on above: Performed By: #### A DIFF, CMP, LIP, MDW, GFR, CBC, ANEU ####[address] [address] ALP [Catalytic activity/Vol] 98 U/L Normal 40-[address] [facility] Comment on above: Performed By: #### A DIFF, CMP, LIP, MDW, GFR, CBC, ANEU ####[address] [address] ALT [Catalytic activity/Vol] 41 U/L Normal 14-[address] [facility] Comment on above: Performed By: #### A DIFF, CMP, LIP, MDW, GFR, CBC, ANEU ####[address] [address] AST [Catalytic activity/Vol] 28 U/L Normal 10-[address] [facility] Comment on above: Performed By: #### A DIFF, CMP, LIP, MDW, GFR, CBC, ANEU ####[place] [address] [place], [place] [address] Bili Total 0.2 mg/dL Normal 0.2-1.[address] [facility] Comment on above: Result Comment: Use of this assay is not recommended for patients undergoing treatment with eltrombopag due to the potential for falsely elevated results. Performed By: #### A DIFF, CMP, LIP, MDW, GFR, CBC, ANEU ####[facility] [place], [place] [address] BUN/Creatinine Ratio 19 ratio Normal 7-27 [facility] Comment on above: Performed By: #### A DIFF, CMP, LIP, MDW, GFR, CBC, ANEU ####[address] [place], [place] [address] Calcium [Mass/Vol] 9.0 mg/dL Normal 8.4-10.2 [facility] Comment on above: Performed By: #### A DIFF, CMP, LIP, MDW, GFR, CBC, ANEU ####[address] [address] Chloride [Moles/Vol] 101 mmol/L Normal 98-107 [facility] Comment on above: Performed By: #### A DIFF, CMP, LIP, MDW, GFR, CBC, ANEU ####[address] [address] CO2 [Moles/Vol] 22 mmol/L Normal 22-[address] [facility] Comment on above: Performed By: #### A DIFF, CMP, LIP, MDW, GFR, CBC, ANEU ####[address] [address] Creatinine [Mass/Vol] 0.62 mg/dL Normal 0.51-0.95 [facility] Comment on above: Performed By: #### A DIFF, CMP, LIP, MDW, GFR, CBC, ANEU ####[address] [address] Electrolyte Balance 13.0 mEq/L Normal 4.0-15.0 [facility] Comment on above: Performed By: #### A DIFF, CMP, LIP, MDW, GFR, CBC, ANEU ####[address] [place], [place] [address] Globulin 4.7 G/dL High 2.7-4.[address] [facility] Comment on above: Performed By: #### A DIFF, CMP, LIP, MDW, GFR, CBC, ANEU ####[facility] [place], [place] [address] Glucose [Mass/Vol] 322 mg/dL High 70-105 [facility] Comment on above: Performed By: #### A DIFF, CMP, LIP, MDW, GFR, CBC, ANEU ####[address] [place], [place] [address] Potassium [Moles/Vol] 3.9 mmol/L Normal 3.5-5.1 [facility] Comment on above: Performed By: #### A DIFF, CMP, LIP, MDW, GFR, CBC, ANEU ####[address] [place], [place] [address] Sodium [Moles/Vol] 136 mmol/L Normal 136-145 [facility] Comment on above: Performed By: #### A DIFF, CMP, LIP, MDW, GFR, CBC, ANEU ####[facility] [place], [place] [address] Total Protein 8.4 G/dL High 6.4-8.[address] [facility] Comment on above: Performed By: #### A DIFF, CMP, LIP, MDW, GFR, CBC, ANEU ####[place] [address] [place], [place] [address] Urea nitrogen [Mass/Vol] 12 mg/dL Normal 7-[address] [facility] Comment on above: Performed By: #### A DIFF, CMP, LIP, MDW, GFR, CBC, ANEU ####[facility] [place], [place] [address] CT ABD/PELVIS W/ IV CONTRAST ONLYon 12-14-2024 CT ABD/PELVIS W/ IV CONTRAST ONLY ORIGINAL EXAMINATION: CT OF THE ABDOMEN AND PELVIS WITH CONTRAST 12/14/2024 5:53 pm TECHNIQUE: CT of the abdomen and pelvis was performed with the administration of intravenous contrast. Multiplanar reformatted images are provided for review. Automated exposure control, iterative reconstruction, and/or weight based adjustment of the mA/kV was utilized to reduce the radiation dose to as low as reasonably achievable. COMPARISON: CT abdomen pelvis 06/02/2024 HISTORY: ORDERING SYSTEM PROVIDED HISTORY: Reason for Exam: pain FINDINGS: The heart is normal size. No pericardial thickening or effusion. No acute abnormality within the visualized lower lungs. Small fat containing right Bochdalek's hernia. The aorta is nonaneurysmal with no significant atherosclerosis. No adenopathy within the abdomen or pelvis. The liver, spleen, pancreas, and bilateral adrenal glands are unremarkable. Cholecystectomy. Multifocal cortical scarring with atrophy of the right kidney, similar to prior. No hydronephrosis. Stable right lower pole nephrolithiasis. Suprapubic Cook catheter within the bladder. There is stable bladder wall thickening. Uterus is unremarkable. No adnexal lesion. No pneumoperitoneum or free fluid. Stable left colostomy with large peristomal hernia containing multiple loops of colon small bowel. The os of the hernia measures up to 6.4 cm. There is no evidence of obstruction or inflammation. Colonic anastomosis within pelvis. Stable of umbilical hernia containing the appendix. Mesh sheath related to attempted hernia repair. No acute osseous abnormality. Prior laminectomy from L3 through S1. IMPRESSION: No acute abnormality within the abdomen or pelvis. Left colostomy with stable large peristomal hernia containing loops of normal appearing small bowel and colon. No evidence of obstruction or inflammation. Stable umbilical hernia containing the appendix. Nonobstructive right lower pole nephrolithiasis. Stable bladder wall thickening in the setting of a suprapubic catheter. I have personally reviewed the images of this examination and agree with the resident's findings and interpretation. Interpreted by: Xavier Briones Preliminary Report By: Andre Mccain Electronically signed By Xavier Briones Dictated Date: 12/14/2024 5:56:07 PM Prelim Date: 12/14/2024 6:08:52 PM Sign Date: 12/14/2024 6:17:05 PM Ordering Provider: ELMIRA Eli [facility] LABORATORYOrdered By: SYSTEM SYSTEM on 12-14-2024 Albumin BCP dye [Mass/Vol] 3.7 G/dL Normal 3.5 - 5.0 G/dL AO ADM SS Albumin/Globulin [Mass ratio] 0.8 {ratio} Low 1.1 - 2.5 ratio AO ADM SS ALP [Catalytic activity/Vol] 98 U/L Normal 40 - 135 U/L AO ADM SS ALT With P-5'-P [Catalytic activity/Vol] 41 U/L Normal 14 - 59 U/L AO ADM SS AST With P-5'-P [Catalytic activity/Vol] 28 U/L Normal 10 - 40 U/L AO ADM SS Basophils (Bld) [#/Vol] 0.1 103/mcL Normal 0.0 - 0.3 10^3/mcL AO Workflow SS Basophils/100 WBC (Bld) 0.7 % Normal 0.0 - 2.5 % AO Workflow SS Bilirubin [Mass/Vol] 0.2 mg/dL Normal 0.2 - 1 .0 mg/dL AO ADM SS Comment on above: Interpretive Data: U se of this assay is not recommended for patients undergoing treatment with eltrombopag due to the potential for falsely elevated results. Calcium [Mass/Vol] 9.0 mg/dL Normal 8.4 - 10. 2 mg/dL AO ADM SS Chloride [Moles/Vol] 101 mmol/L Normal 98 - 10 7 mmol/L AO ADM SS CO2 [Moles/Vol] 22 mmol/L Normal 22 - 29 mmol/L AO ADM SS Creatinine [Mass/Vol] 0.62 mg/dL Normal 0.51 - 0.95 mg/dL AO ADM SS Electrolyte Balance 13.0 mEq/L Normal 4.0 - 15 .0 mEq/L AO ADM SS Eosinophil, Absolute 0.1 103/mcL Normal 0.0 - 0 .7 10^3/mcL AO Workflow SS Eosinophils/100 WBC (Bld) 1.1 % Normal 0.0 - 6.0 % AO Workflow SS Erythrocyte distribution width (RBC) [Ratio] 14.9 % Normal 11.5 - 15.5 % AO Workflow SS Estimated Glomerular Filtration Rate 113 ml/min/1.73sqm Invalid Interpretation Code AO Chemistry S Comment on above: Interpretive Data: Stages of Chronic Kidney Disease (CKD) Stage Description eGFR(ml/min/1.73 sq.m.) CKD 1 Normal kidney function or >=90 normal kindney function with possible kidney damage (ex. Proteinuria) CKD 2 Kidney damage with mild loss 60-89 of kidney function CKD 3a Mild to moderate loss of kidney 45-59 function CKD 3b Moderate to severe loss of 30-44 of kindey function CKD 4 Severe loss of kidney function 15-29 CKD 5 Kidney failure <15 Note: (go live 2024) the eGFR calculation was updated to the 2020 CKD-EPI creatinine equation without a race factor to calculate the eGFR results. Globulin 4.7 G/dL High 2.7 - 4.4 G/dL AO ADM SS Glucose [Mass/Vol] 322 mg/dL High 70 - 105 mg/dL AO ADM SS Hematocrit (Bld) [Volume fraction] 44.4 % Normal 34.0 - 46.0 % AO Workflow SS Hemoglobin (Bld) [Mass/Vol] 15.1 G/dL Normal 12.0 - 16.0 G/dL AO Workflow SS Lipase [Catalytic activity/Vol] 42 U/L Normal 16 - 77 U/L AO ADM SS Lymphocytes (Bld) [#/Vol] 4.2 103/mcL Normal 0.9 - 4.3 10^3/mcL AO Workflow SS Lymphocytes/100 WBC (Bld) 40.8 % High 20.0 - 40.0 % AO Workflow SS MCH (RBC) [Entitic mass] 30.5 pg Normal 27.0 - 33.0 pg AO Workflow SS MCHC 34.0 G/dL Normal 32.0 - 36.0 G/dL AO Workflow SS MCV (RBC) [Entitic vol] 89.8 fL Normal 80.0 - 99.0 fL AO Workflow SS Monocyte distribution width Auto (Bld) [Entitic vol] 18.06 1 Normal 0.00 - 20.00 AO Workflow SS Comment on above: Result Comment: For ED adult patients suspected of sepsis, MDW<=20.0 does not rule out sepsis or risk of sepsis Monocytes (Bld) [#/Vol] 1.0 103/mcL Normal 0.1 - 1.4 10^3/mcL AO Workflow SS Monocytes/100 WBC (Bld) 9.2 % Normal 2.0 - 13.0 % AO Workflow SS Neutrophils (Bld) [#/Vol] 5.0 103/mcL Normal 2.3 - 8.1 10^3/mcL AO Workflow SS Neutrophils/100 WBC (Bld) 48.2 % Low 50.0 - 75.0 % AO Workflow SS Platelet mean volume (Bld) [Entitic vol] 8.7 fL Normal 6.6 - 10.5 fL AO Workflow SS Platelets (Bld) [#/Vol] 194 103/mcL Normal 150 - 450 10^3/mcL AO Workflow SS Potassium [Moles/Vol] 3.9 mmol/L Normal 3.5 - 5.1 mmol/L AO ADM SS Protein [Mass/Vol] 8.4 G/dL High 6.4 - 8.2 G/dL AO ADM SS RBC (Bld) [#/Vol] 4.94 106/mcL Normal 4.10 - 5.30 10^6/mcL AO Workflow SS Sodium [Moles/Vol] 136 mmol/L Normal 136 - 145 mmol/L AO ADM SS Urea nitrogen [Mass/Vol] 12 mg/dL Normal 7 - 18 mg/dL AO ADM SS Urea nitrogen/Creatinine [Mass ratio] 19 ratio Normal 7 - 27 ratio AO ADM SS WBC (Bld) [#/Vol] 10.4 103/mcL Normal 4.5 - 10.8 10^3/mcL AO Workflow SS LABORATORYOrdered By: Rosario Cagle on 12-14-2024 Appearance (U) Slightly Cloudy *ABN* (12/14/24 4:51 PM) Invalid Interpretation Code Clear AO Auto Urine SS Bacteria LM.HPF (Urine sed) [#/Area] 3 /[HPF] Invalid Interpretation Code Negative AO Auto Urine SS Bilirubin Ql (U) Negative (12/14/24 4:51 PM) Normal Negative AO Auto Urine SS Color (U) Yellow (12/14/24 4:51 PM) Normal AO Auto Urine SS Glucose Test strip (U) [Mass/Vol] 500 mg/dL Invalid Interpretation Code Negative AO Auto Urine SS HCG ( test) Ql Negative (12/14/24 4:51 PM) Normal AO Manual Urine SS Hemoglobin Auto test strip (U) [Mass/Vol] Trace (12/14/24 4:51 PM) Normal Negative AO Auto Urine SS Ketones Ql (U) Negative Normal Negative AO Auto Ur ine SS test (u) int Not detected Invalid Interpretation Code AO Manual Urine SS UA Leuk Est Small *ABN* (12/14/24 4:51 PM) Invalid Interpretation Code Negative AO Auto Urine SS UA Nitrite Positive *ABN* (12/14/24 4:51 PM) Invalid Interpretation Code Negative AO Auto Urine SS UA pH 6.0 (12/14/24 4:51 PM) Normal 5.0 - 8.0 AO Auto Urine SS UA Protein 100 mg/dL Invalid Interpretation Code Negative AO Auto Urine SS UA RBC 0-2 /HPF Normal 0-2 AO Auto Urine SS UA Spec Grav 1.015 (12/14/24 4:51 PM) Normal 1.015-1.02 5 AO Auto Urine SS UA Specimen Type Void (12/14/24 4:51 PM) Normal AO Auto Urine SS UA Squam Epithelial 5-10 /HPF Normal 0-20 AO Au to Urine SS UA Urobilinogen 0.2 E.U./dL Normal 0.2-1.0 AO Auto Urine SS WBC LM.HPF (Urine sed) [#/Area] LOADED /HPF Invalid Interpretation Code 0-5 AO Auto Urine SS LIPon 12-14-2024 Lipase Level 42 U/L Normal 16-[address] [facility] Comment on above: Performed By: #### A DIFF, CMP, LIP, MDW, GFR, CBC, ANEU #### [address] [address] PREGUon 12-14-2024 HCG ( test) Ql (U) Negative Normal [facility] Comment on above: Performed By: #### A DIFF, CMP, LIP, MDW, GFR, CBC, ANEU #### [address] [address] test (u) int Not detected Invalid Interpretation Code [facility] Comment on above: Performed By: #### A DIFF, CMP, LIP, MDW, GFR, CBC, ANEU #### [address] [address] UAon 12-14-2024 Color (U) Yellow Normal [facility] Comment on above: Performed By: #### A DIFF, CMP, LIP, MDW, GFR, CBC, ANEU #### [address] [address] Glucose (U) [Mass/Vol] 500 mg/dL Abnormal Negative [facility] Comment on above: Performed By: #### A DIFF, CMP, LIP, MDW, GFR, CBC, ANEU #### [address] [address] Ketones Ql (U) Negative Normal Negative [facility] Comment on above: Performed By: #### A DIFF, CMP, LIP, MDW, GFR, CBC, ANEU #### [place] [address] UA Appear Slightly Cloudy Abnormal Clear [facility] Comment on above: Performed By: #### A DIFF, CMP, LIP, MDW, GFR, CBC, ANEU #### [address] [address] UA Blood Trace Normal Negative [facility] Comment on above: Performed By: #### A DIFF, CMP, LIP, MDW, GFR, CBC, ANEU #### [address] [address] UA Leuk Est Small Abnormal Negative [facility] Comment on above: Performed By: #### A DIFF, CMP, LIP, MDW, GFR, CBC, ANEU #### [address] [address] UA Nitrite Positive Abnormal Negative [facility] Comment on above: Performed By: #### A DIFF, CMP, LIP, MDW, GFR, CBC, ANEU #### [address] [address] UA pH 6.0 Normal 5.0 - 8.[address] [facility] Comment on above: Performed By: #### A DIFF, CMP, LIP, MDW, GFR, CBC, ANEU #### [address] [address] UA Protein 100 mg/dL Abnormal Negative [facility] Comment on above: Performed By: #### A DIFF, CMP, LIP, MDW, GFR, CBC, ANEU #### [address] [address] UA Spec Grav 1.015 Normal 1.015-1.02 [address] [facility] Comment on above: Performed By: #### A DIFF, CMP, LIP, MDW, GFR, CBC, ANEU #### [place] [address] UA Specimen Type Void Normal [facility] Comment on above: Performed By: #### A DIFF, CMP, LIP, MDW, GFR, CBC, ANEU #### [place] [address] UA Urobilinogen 0.2 E.U./dL Normal 0.2-1.[address] [facility] Comment on above: Performed By: #### A DIFF, CMP, LIP, MDW, GFR, CBC, ANEU #### [place] [address] Urobilinogen (U) [Mass/Vol] Negative Normal Negative [facility] Comment on above: Performed By: #### A DIFF, CMP, LIP, MDW, GFR, CBC, ANEU #### [place] [address] UAMICon 12-14-2024 UA Bacteria 3+ /hpf Abnormal Negative [facility] Comment on above: Performed By: #### A DIFF, CMP, LIP, MDW, GFR, CBC, ANEU #### [place] [address] UA RBC 0-2 Normal 0-[address] [facility] Comment on above: Performed By: #### A DIFF, CMP, LIP, MDW, GFR, CBC, ANEU #### [place] [address] UA Squam Epithelial 5-10 Normal 0-20 [facility] Comment on above: Performed By: #### A DIFF, CMP, LIP, MDW, GFR, CBC, ANEU #### [place] [address] UA WBC LOADED Abnormal 0-[address] [facility] Comment on above: Performed By: #### A DIFF, CMP, LIP, MDW, GFR, CBC, ANEU #### [place] [id number] Bilirubin Test strip Ql (U)O rdered By: Rigo Espinal on 11-20-2024 Bilirubin Ql (U) Negative Negative [facility] Ketones Test strip Ql (U)Ord ered By: Rigo Espinal on 11-20-2024 Ketones Ql (U) Negative Negative [facility] Mucus LM Ql (Urine sed)Order ed By: Rigo Espinal on 11-20-2024 Mucus Ql (Urine sed) 0 SEEN /hpf [facility] Nitrite Test strip Ql (U)Ord ered By: Rigo Espinal on 11-20-2024 Nitrite Ql (U) Positive High Negative [facility] Protein Test strip Ql (U)Ord ered By: Rigo Espinal on 11-20-2024 Protein Ql (U) 100 mg/dl High Negative [facility] Squamous epithelial cells de tection in urine sediment by light microscopyOrdered By: Rigo Espinal on 11-20-2024 Epithelial cells.squamous LM Ql (Urine sed) 0-5 SEEN /hpf 5-10 [facility] Urine clarityOrdered By: Veronica Espinal on 11-20-2024 Clarity (U) Sl. Cloudy Clear [facility] Urine color determinationOrd ered By: Rigo Espinal on 11-20-2024 Color (U) Yellow Yellow [facility] Urine glucose detectionOrder ed By: Rigo Espinal on 11-20-2024 Glucose Ql (U) 1000 mg/dl High Normal [facility] Urine leukocyte esterase det ection by dipstickOrdered By: Rigo Espinal on 11-20-2024 Leukocyte esterase Test strip Ql (U) 500 /ul High Negative [facility] Urine pHOrdered By: Rigo savage on 11-20-2024 pH (U) 6.5 [pH] 5.0 - 8.0 [facility] Urine sediment bacteria coun t by microscopy (number/high power field)Ordered By: Rigo Espinal on 11-20-2024 Bacteria LM.HPF (Urine sed) [#/Area] 3 /[HPF] None Seen [facility] Urine specific gravity measu rementOrdered By: Rigo Espinal on 11-20-2024 Specific gravity (U) [Rel density] 1.015 1.002-1.03 0 [facility] Urine urobilinogen measureme ntOrdered By: Rigo Espinal on 11-20-2024 Urobilinogen Ql (U) Normal mg/dl Normal [facility] White blood cell countOrdere d By: Rigo Espinal on 11-20-2024 White blood cell count 50-100 SEEN /hpf 0-5 [facility] Absolute lymphocyte countOrd ered By: Rigo Espinal on 11-19-2024 Lymphocytes Auto (Unsp spec) [#/Vol] 4.81 10*3/uL High 0.83-4.51 [facility] Activated partial thrombopla stin time (aPTT) in platelet poor plasma by coagulation aOrdered By: Rigo Espinal on 11-19-2024 aPTT Coag (PPP) [Time] 26.2 s 24.1-36.2 [facility] Anion gap in Serum or Plasma Ordered By: Rigo Espinal on 11-19-2024 Anion gap [Moles/Vol] 13 mmol/L 5-15 [facility] Automated lymphocyte count a s percentage of total leukocytesOrdered By: Rigo Espinal on 11-19-2024 Lymphocytes/100 WBC Auto (Unsp spec) 40.2 % 19-41 [facility] BUN/creatinine ratioOrdered By: Rigo Espinal on 11-19-2024 Urea nitrogen/Creatinine [Mass ratio] 24.1 mg/mg High 10-20 [facility] Basophil percentageOrdered B y: Rigo Espinal on 11-19-2024 Basophils/100 WBC (Bld) 0.8 % 0-1 [facility] Carbon dioxide, total [Moles /volume] in Central venous bloodOrdered By: Rigo Espinal on 11-19-2024 CO2 [Moles/Vol] 17.3 mmol/L Low 21.0-32.0 [facility] Chloride assayOrdered By: Anjum Espinal on 11-19-2024 Chloride [Moles/Vol] 103 mmol/L 98-108 [facility] Eosinophil percentageOrdered By: Rigo Espinal on 11-19-2024 Eosinophils/100 WBC (Bld) 1.1 % 0-5 [facility] Erythrocyte distribution wid th ratioOrdered By: Rigo Espinal on 11-19-2024 Erythrocyte distribution width (RBC) [Ratio] 13.9 % 11.6-14.6 [facility] Erythrocyte distribution wid th standard deviationOrdered By: Rigo Espinal on 11-19-2024 Erythrocyte distribution width (RBC) [Ratio] 44.7 fl High 35.1-43.9 [facility] Glomerular filtration rate ( GFR) estimation/1.73 sq m using serum, plasma, or whole bOrdered By: Rigo Espinal on 11-19-2024 GFR/1.73 sq M.predicted among non-blacks MDRD (S/P/Bld) [Vol rate/Area] 92 mL/min/{1.73_m2} >60 [facility] Hematocrit Auto (Bld) [Volum e fraction]Ordered By: Rigo Espinal on 11-19-2024 Hematocrit (Bld) [Volume fraction] 41.1 % 37-47 [facility] Hemoglobin measurementOrdere d By: Rigo Espinal on 11-19-2024 Hemoglobin (Bld) [Mass/Vol] 14.0 g/dL 12.0-15.0 [facility] Immature granulocytes/100 WB C Auto (Bld)Ordered By: Rigo Espinal on 11-19-2024 Immature granulocytes/100 WBC (Bld) 0.900 % 0.0-0.9 [facility] MCV (mean corpuscular volume ) determinationOrdered By: Rigo Espinal on 11-19-2024 MCV (RBC) [Entitic vol] 89.0 fL 81-99 [facility] Mean corpuscular hemoglobin (MCH) determinationOrdered By: Rigo Espinal on 11-19-2024 MCH (RBC) [Entitic mass] 30.3 pg 27.0-32.0 [facility] Monocyte percentageOrdered B y: Rigo Espinal on 11-19-2024 Monocytes/100 WBC (Bld) 9.9 % 0-10 [facility] Neutrophil percentageOrdered By: Rigo Espinal on 11-19-2024 Neutrophils/100 WBC (Bld) 47.1 % 47-70 [facility] Platelet countOrdered By: Anjum Espinal on 11-19-2024 Platelets (Bld) [#/Vol] 184 10*3/uL 150-450 [facility] Potassium measurement (mass/ volume)Ordered By: Rigo Espinal on 11-19-2024 Potassium (Unsp spec) [Mass/Vol] 4.7 mmol/L 3.3-5.1 [facility] Prothrombin timeOrdered By: Rigo Espinal on 11-19-2024 PT Coag (PPP) [Time] 12.6 s 11.7-14.9 [facility] RBC Auto (Bld) [#/Vol]Ordere d By: Rigo Espinal on 11-19-2024 RBC (Bld) [#/Vol] 4.62 10*6/uL 4.2-5.4 [facility] Serum beta-hCG test, qualita tiveOrdered By: Rigo Espinal on 11-19-2024 Beta HCG ( test) Ql Negative [facility] Serum creatinine measurement (mass/volume)Ordered By: Rigo Espinal on 11-19-2024 Creatinine [Mass/Vol] 0.81 mg/dL 0.70-1.20 [facility] Serum glucose measurement (m ass/volume)Ordered By: Rigo Espinal on 11-19-2024 Glucose [Mass/Vol] 272 mg/dL High 70-99 [facility] Serum or plasma calcium thi urement (mass/volume)Ordered By: Rigo Espinal on 11-19-2024 Calcium [Mass/Vol] 8.8 mg/dL 7.6-11.0 [facility] Serum or plasma urea nitroge n measurement (mass/volume)Ordered By: Rigo Espinal on 11-19-2024 Urea nitrogen [Mass/Vol] 20 mg/dL High 4-19 [facility] Sodium levelOrdered By: Rigo Espinal on 11-19-2024 Sodium [Moles/Vol] 133 mmol/L 133-145 [facility] White blood cell (WBC) count Ordered By: Rigo Espinal on 11-19-2024 WBC (Bld) [#/Vol] 12.0 10*3/uL High 4.4-11.0 [facility] Bilirubin Test strip Ql (U)O rdered By: Emilee Richard on 09-09-2024 Bilirubin Ql (U) Negative Negative [facility] Ketones Test strip Ql (U)Ord ered By: Emilee Richadr on 09-09-2024 Ketones Ql (U) Negative Negative [facility] Mucus LM Ql (Urine sed)Order ed By: Emilee Richard on 09-09-2024 Mucus Ql (Urine sed) 0 SEEN /hpf [facility] Nitrite Test strip Ql (U)Ord ered By: Emilee Richard on 09-09-2024 Nitrite Ql (U) Negative Negative [facility] Protein Test strip Ql (U)Ord ered By: Emilee Richard on 09-09-2024 Protein Ql (U) 30 mg/dl High Negative [facility] Squamous epithelial cells de tection in urine sediment by light microscopyOrdered By: Emilee Richard on 09-09-2024 Epithelial cells.squamous LM Ql (Urine sed) 0-5 SEEN /hpf 5-10 [facility] Urine clarityOrdered By: Hipolito Richard on 09-09-2024 Clarity (U) Sl. Cloudy Clear [facility] Urine color determinationOrd ered By: Emilee Richard on 09-09-2024 Color (U) Yellow Yellow [facility] Urine cultureOrdered By: Hipolito Richard on 09-09-2024 Bacteria identified Cx Nom (U) Morganella morganii sp morgani Abnormal [facility] Bacteria identified Cx Nom (U) Myroides spp Abnormal [facility] Urine glucose detectionOrder ed By: Emilee Richard on 09-09-2024 Glucose Ql (U) 250 mg/dl High Normal [facility] Urine leukocyte esterase det ection by dipstickOrdered By: Emilee Richard on 09-09-2024 Leukocyte esterase Test strip Ql (U) 100 /ul High Negative [facility] Urine pHOrdered By: Emilee montague on 09-09-2024 pH (U) 7.0 [pH] 5.0 - 8.0 [facility] Urine sediment bacteria coun t by microscopy (number/high power field)Ordered By: Emilee Richard on 09-09-2024 Bacteria LM.HPF (Urine sed) [#/Area] 1 /[HPF] None Seen [facility] Urine specific gravity measu rementOrdered By: Emilee Richard on 09-09-2024 Specific gravity (U) [Rel density] 1.010 1.002-1.03 0 [facility] Urine urobilinogen measureme ntOrdered By: Emilee Richard on 09-09-2024 Urobilinogen Ql (U) Normal mg/dl Normal [facility] White blood cell countOrdere d By: Emilee Richard on 09-09-2024 White blood cell count 10-25 SEEN /hpf 0-5 [facility] TSH DL <= 0.005 mIU/L QnOrde red By: Emilee Richard on 09-03-2024 TSH Qn 2.130 uIU/mL 0.300-4.20 0 [facility] Vitamin B12 ser/plasOrdered By: Emilee Richard on 09-03-2024 Cobalamin (Vitamin B12) [Mass/Vol] 768 pg/mL 180-914 [facility] Absolute lymphocyte countOrd ered By: Emilee Richard on 09-02-2024 Lymphocytes Auto (Unsp spec) [#/Vol] 4.11 10*3/uL 0.83-4.51 [facility] Anion gap in Serum or Plasma Ordered By: Emilee Richard on 09-02-2024 Anion gap [Moles/Vol] 12 mmol/L 5-15 [facility] Automated lymphocyte count a s percentage of total leukocytesOrdered By: Emilee Richard on 09-02-2024 Lymphocytes/100 WBC Auto (Unsp spec) 52.2 % High 19-41 [facility] BUN/creatinine ratioOrdered By: Emilee Richard on 09-02-2024 Urea nitrogen/Creatinine [Mass ratio] 15.2 mg/mg 10-20 [facility] Basophil percentageOrdered B y: Emilee Richard on 09-02-2024 Basophils/100 WBC (Bld) 0.5 % 0-1 [facility] Carbon dioxide, total [Moles /volume] in Central venous bloodOrdered By: Emilee Richard on 09-02-2024 CO2 [Moles/Vol] 24.8 mmol/L 21.0-32.0 [facility] Chloride assayOrdered By: Paul Richard on 09-02-2024 Chloride [Moles/Vol] 101 mmol/L 98-108 [facility] Eosinophil percentageOrdered By: Emilee iRchard on 09-02-2024 Eosinophils/100 WBC (Bld) 1.8 % 0-5 [facility] Erythrocyte distribution wid th ratioOrdered By: Emilee Richard on 09-02-2024 Erythrocyte distribution width (RBC) [Ratio] 13.6 % 11.6-14.6 [facility] Erythrocyte distribution wid th standard deviationOrdered By: Emilee Richard on 09-02-2024 Erythrocyte distribution width (RBC) [Ratio] 45.1 fl High 35.1-43.9 [facility] Glomerular filtration rate ( GFR) estimation/1.73 sq m using serum, plasma, or whole bOrdered By: Emilee Richard on 09-02-2024 GFR/1.73 sq M.predicted among non-blacks MDRD (S/P/Bld) [Vol rate/Area] 83 mL/min/{1.73_m2} >60 [facility] Hematocrit Auto (Bld) [Volum e fraction]Ordered By: Emilee Richard on 09-02-2024 Hematocrit (Bld) [Volume fraction] 35.5 % Low 37-47 [facility] Hemoglobin measurementOrdere d By: Emilee Richard on 09-02-2024 Hemoglobin (Bld) [Mass/Vol] 11.8 g/dL Low 12.0-15.0 [facility] Immature granulocytes/100 WB C Auto (Bld)Ordered By: Emilee Richard on 09-02-2024 Immature granulocytes/100 WBC (Bld) 0.600 % 0.0-0.9 [facility] MCV (mean corpuscular volume ) determinationOrdered By: Emilee Richard on 09-02-2024 MCV (RBC) [Entitic vol] 91.7 fL 81-99 [facility] Magnesium measurement (mass/ volume)Ordered By: Emilee Rcihard on 09-02-2024 Magnesium (Unsp spec) [Mass/Vol] 1.7 mg/dL 1.5-2.2 [facility] Mean corpuscular hemoglobin (MCH) determinationOrdered By: Emilee Richard on 09-02-2024 MCH (RBC) [Entitic mass] 30.5 pg 27.0-32.0 [facility] Monocyte percentageOrdered B y: Emilee Richard on 09-02-2024 Monocytes/100 WBC (Bld) 13.2 % High 0-10 [facility] Neutrophil percentageOrdered By: Emilee Richard on 09-02-2024 Neutrophils/100 WBC (Bld) 31.7 % Low 47-70 [facility] Platelet countOrdered By: Paul Richard on 09-02-2024 Platelets (Bld) [#/Vol] 159 10*3/uL 150-450 [facility] Potassium measurement (mass/ volume)Ordered By: Emilee Richard on 09-02-2024 Potassium (Unsp spec) [Mass/Vol] 4.2 mmol/L 3.3-5.1 [facility] RBC Auto (Bld) [#/Vol]Ordere d By: Emilee Richard on 09-02-2024 RBC (Bld) [#/Vol] 3.87 10*6/uL Low 4.2-5.4 [facility] Serum creatinine measurement (mass/volume)Ordered By: Emilee Richard on 09-02-2024 Creatinine [Mass/Vol] 0.89 mg/dL 0.70-1.20 [facility] Serum glucose measurement (m ass/volume)Ordered By: Emilee Richard on 09-02-2024 Glucose [Mass/Vol] 329 mg/dL High 70-99 [facility] Serum or plasma C reactive p rotein measurement (mass/volume)Ordered By: Emilee Richard on 09-02-2024 CRP [Mass/Vol] mg/L 0.0-3.0 [facility] Serum or plasma calcium thi urement (mass/volume)Ordered By: Emilee Richard on 09-02-2024 Calcium [Mass/Vol] 8.8 mg/dL 7.6-11.0 [facility] Serum or plasma urea nitroge n measurement (mass/volume)Ordered By: Emilee Richard on 09-02-2024 Urea nitrogen [Mass/Vol] 14 mg/dL 4-19 [facility] Sodium levelOrdered By: Torrey Richard on 09-02-2024 Sodium [Moles/Vol] 137 mmol/L 133-145 [facility] White blood cell (WBC) count Ordered By: Emilee Richard on 09-02-2024 WBC (Bld) [#/Vol] 7.9 10*3/uL 4.4-11.0 [facility] Absolute lymphocyte countOrd ered By: Emilee Richard on 08-26-2024 Lymphocytes Auto (Unsp spec) [#/Vol] 3.68 10*3/uL 0.83-4.51 [facility] Anion gap in Serum or Plasma Ordered By: Emilee Richard on 08-26-2024 Anion gap [Moles/Vol] 12 mmol/L 5-15 [facility] Automated lymphocyte count a s percentage of total leukocytesOrdered By: Emilee Richard on 08-26-2024 Lymphocytes/100 WBC Auto (Unsp spec) 42.7 % High 19-41 [facility] BUN/creatinine ratioOrdered By: Emilee Richard on 08-26-2024 Urea nitrogen/Creatinine [Mass ratio] 16.6 mg/mg 10-20 [facility] Basophil percentageOrdered B y: Emilee Richard on 08-26-2024 Basophils/100 WBC (Bld) 0.5 % 0-1 [facility] Carbon dioxide, total [Moles /volume] in Central venous bloodOrdered By: Emilee Richard on 08-26-2024 CO2 [Moles/Vol] 22.9 mmol/L 21.0-32.0 [facility] Chloride assayOrdered By: Paul Richard on 08-26-2024 Chloride [Moles/Vol] 104 mmol/L 98-108 [facility] Eosinophil percentageOrdered By: Emilee Richard on 08-26-2024 Eosinophils/100 WBC (Bld) 0.9 % 0-5 [facility] Erythrocyte distribution wid th ratioOrdered By: Emilee Richard on 08-26-2024 Erythrocyte distribution width (RBC) [Ratio] 13.3 % 11.6-14.6 [facility] Erythrocyte distribution wid th standard deviationOrdered By: Emilee Richard on 08-26-2024 Erythrocyte distribution width (RBC) [Ratio] 44.3 fl High 35.1-43.9 [facility] Glomerular filtration rate ( GFR) estimation/1.73 sq m using serum, plasma, or whole bOrdered By: Emilee Richard on 08-26-2024 GFR/1.73 sq M.predicted among non-blacks MDRD (S/P/Bld) [Vol rate/Area] 91 mL/min/{1.73_m2} >60 [facility] Hematocrit Auto (Bld) [Volum e fraction]Ordered By: Emilee Richard on 08-26-2024 Hematocrit (Bld) [Volume fraction] 36.0 % Low 37-47 [facility] Hemoglobin measurementOrdere d By: Emilee Richard on 08-26-2024 Hemoglobin (Bld) [Mass/Vol] 12.0 g/dL 12.0-15.0 [facility] Immature granulocytes/100 WB C Auto (Bld)Ordered By: Emilee Richard on 08-26-2024 Immature granulocytes/100 WBC (Bld) 0.300 % 0.0-0.9 [facility] MCV (mean corpuscular volume ) determinationOrdered By: Emilee Richard on 08-26-2024 MCV (RBC) [Entitic vol] 91.4 fL 81-99 [facility] Magnesium measurement (mass/ volume)Ordered By: Emilee Richard on 08-26-2024 Magnesium (Unsp spec) [Mass/Vol] 1.9 mg/dL 1.5-2.2 [facility] Mean corpuscular hemoglobin (MCH) determinationOrdered By: Emilee Richard on 08-26-2024 MCH (RBC) [Entitic mass] 30.5 pg 27.0-32.0 [facility] Monocyte percentageOrdered B y: Emilee Richard on 08-26-2024 Monocytes/100 WBC (Bld) 13.6 % High 0-10 [facility] Neutrophil percentageOrdered By: Emilee Richard on 08-26-2024 Neutrophils/100 WBC (Bld) 42.0 % Low 47-70 [facility] Platelet countOrdered By: Paul Richard on 08-26-2024 Platelets (Bld) [#/Vol] 129 10*3/uL Low 150-450 [facility] Potassium measurement (mass/ volume)Ordered By: Emilee Richard on 08-26-2024 Potassium (Unsp spec) [Mass/Vol] 3.9 mmol/L 3.3-5.1 [facility] RBC Auto (Bld) [#/Vol]Ordere d By: Emilee Richard on 08-26-2024 RBC (Bld) [#/Vol] 3.94 10*6/uL Low 4.2-5.4 [facility] Serum creatinine measurement (mass/volume)Ordered By: Emilee Richard on 08-26-2024 Creatinine [Mass/Vol] 0.83 mg/dL 0.70-1.20 [facility] Serum glucose measurement (m ass/volume)Ordered By: Emilee Richard on 08-26-2024 Glucose [Mass/Vol] 251 mg/dL High 70-99 [facility] Serum or plasma C reactive p rotein measurement (mass/volume)Ordered By: Emilee Richard on 08-26-2024 CRP [Mass/Vol] mg/L 0.0-3.0 [facility] Serum or plasma calcium thi urement (mass/volume)Ordered By: Emilee Richard on 08-26-2024 Calcium [Mass/Vol] 9.0 mg/dL 7.6-11.0 [facility] Serum or plasma urea nitroge n measurement (mass/volume)Ordered By: Emilee Richard on 08-26-2024 Urea nitrogen [Mass/Vol] 14 mg/dL 4-19 [facility] Sodium levelOrdered By: Torrey Richard on 08-26-2024 Sodium [Moles/Vol] 139 mmol/L 133-145 [facility] White blood cell (WBC) count Ordered By: Emilee Richard on 08-26-2024 WBC (Bld) [#/Vol] 8.6 10*3/uL 4.4-11.0 [facility] Absolute lymphocyte countOrd ered By: Emilee Richard on 08-19-2024 Lymphocytes Auto (Unsp spec) [#/Vol] 5.90 10*3/uL High 0.83-4.51 [facility] Anion gap in Serum or Plasma Ordered By: Emilee Richard on 08-19-2024 Anion gap [Moles/Vol] 12 mmol/L 5-15 [facility] BUN/creatinine ratioOrdered By: Emilee Richard on 08-19-2024 Urea nitrogen/Creatinine [Mass ratio] 19.6 mg/mg 10-20 [facility] Blood lymphocytes/100 leukoc ytesOrdered By: Emilee Richard on 08-19-2024 Lymphocytes/100 WBC (Bld) 46 % High 19-41 [facility] Blood metamyelocytes/100 hunter kocytesOrdered By: Emilee Richard on 08-19-2024 Metamyelocytes/100 WBC (Bld) 3 % High 0-1 [facility] Blood monocytes/100 leukocyt esOrdered By: Emilee Richard on 08-19-2024 Monocytes/100 WBC (Bld) 5 % 0-10 [facility] Blood segmented neutrophils/ 100 leukocytesOrdered By: Emilee Richard on 08-19-2024 Segmented neutrophils/100 WBC (Bld) 46 % Low 47-70 [facility] Carbon dioxide, total [Moles /volume] in Central venous bloodOrdered By: Emilee Richard on 08-19-2024 CO2 [Moles/Vol] 24.7 mmol/L 21.0-32.0 [facility] Chloride assayOrdered By: Paul Richard on 08-19-2024 Chloride [Moles/Vol] 103 mmol/L 98-108 [facility] Erythrocyte distribution wid th ratioOrdered By: Emilee Richard on 08-19-2024 Erythrocyte distribution width (RBC) [Ratio] 13.6 % 11.6-14.6 [facility] Erythrocyte distribution wid th standard deviationOrdered By: Emilee Richard on 08-19-2024 Erythrocyte distribution width (RBC) [Ratio] 46.3 fl High 35.1-43.9 [facility] Erythrocyte morphology asses smentOrdered By: Emilee Richard on 08-19-2024 RBC morphology finding Nom (Bld) NORM C+C NORMAL NORM C&C [facility] Glomerular filtration rate ( GFR) estimation/1.73 sq m using serum, plasma, or whole bOrdered By: Emilee Richard on 08-19-2024 GFR/1.73 sq M.predicted among non-blacks MDRD (S/P/Bld) [Vol rate/Area] 89 mL/min/{1.73_m2} >60 [facility] Hematocrit Auto (Bld) [Volum e fraction]Ordered By: Emilee Richard on 08-19-2024 Hematocrit (Bld) [Volume fraction] 36.6 % Low 37-47 [facility] Hemoglobin measurementOrdere d By: Emilee Richard on 08-19-2024 Hemoglobin (Bld) [Mass/Vol] 12.1 g/dL 12.0-15.0 [facility] MCV (mean corpuscular volume ) determinationOrdered By: Emilee Richard on 08-19-2024 MCV (RBC) [Entitic vol] 92.2 fL 81-99 [facility] Magnesium measurement (mass/ volume)Ordered By: Emilee Richard on 08-19-2024 Magnesium (Unsp spec) [Mass/Vol] 1.8 mg/dL 1.5-2.2 [facility] Mean corpuscular hemoglobin (MCH) determinationOrdered By: Emilee Richard on 08-19-2024 MCH (RBC) [Entitic mass] 30.5 pg 27.0-32.0 [facility] Platelet countOrdered By: Paul Richard on 08-19-2024 Platelets (Bld) [#/Vol] 244 10*3/uL 150-450 [facility] Platelet estimateOrdered By: Emilee Richard on 08-19-2024 Platelets LM Ql (Bld) ADEQUATE ADEQ [facility] Potassium measurement (mass/ volume)Ordered By: Emilee Richard on 08-19-2024 Potassium (Unsp spec) [Mass/Vol] 3.5 mmol/L 3.3-5.1 [facility] RBC Auto (Bld) [#/Vol]Ordere d By: Emilee Richard on 08-19-2024 RBC (Bld) [#/Vol] 3.97 10*6/uL Low 4.2-5.4 [facility] Review by pathologistOrdered By: Emilee Richard on 08-19-2024 Pathologist review Allen (Unsp spec) [Interp] N/A [facility] Serum creatinine measurement (mass/volume)Ordered By: Emilee Richard on 08-19-2024 Creatinine [Mass/Vol] 0.84 mg/dL 0.70-1.20 [facility] Serum glucose measurement (m ass/volume)Ordered By: Emilee Richard on 08-19-2024 Glucose [Mass/Vol] 248 mg/dL High 70-99 [facility] Serum or plasma calcium thi urement (mass/volume)Ordered By: Emilee Richard on 08-19-2024 Calcium [Mass/Vol] 8.3 mg/dL 7.6-11.0 [facility] Serum or plasma urea nitroge n measurement (mass/volume)Ordered By: Emilee Richard on 08-19-2024 Urea nitrogen [Mass/Vol] 16 mg/dL 4-19 [facility] Sodium levelOrdered By: Torrey Richard on 08-19-2024 Sodium [Moles/Vol] 140 mmol/L 133-145 [facility] TSH DL <= 0.005 mIU/L QnOrde red By: Emilee Richard on 08-19-2024 TSH Qn 5.080 uIU/mL High 0.300-4.20 0 [facility] Total cell countOrdered By: Emilee Richard on 08-19-2024 Cells counted Molgen (Bld/Tiss) [#] 100 MANUAL DIFF [facility] Vitamin B12 ser/plasOrdered By: Emilee Richard on 08-19-2024 Cobalamin (Vitamin B12) [Mass/Vol] 1516 pg/mL High 180-914 [facility] White blood cell (WBC) count Ordered By: Emilee Richard on 08-19-2024 WBC (Bld) [#/Vol] 12.9 10*3/uL High 4.4-11.0 [facility] Glucose measurement at bedsi deOrdered By: Quynh Boyer on 08-16-2024 Glucose [Mass/Vol] 385 mg/dL High 74-106 [facility] Glucose measurement at bedside 385 mg/dL High 74-106 [facility] Absolute lymphocyte countOrd ered By: Quynh Boyer on 08-15-2024 Lymphocytes Auto (Unsp spec) [#/Vol] 3.76 10*3/uL 0.83-4.51 [facility] Absolute neutrophil countOrd ered By: Quynh Boyer on 08-15-2024 Absolute neutrophil count 5.2 X10^3/uL 2.0-7.7 [facility] Anion gap [Moles/Vol]Ordered By: Quynh Boyer on 08-15-2024 Anion gap in Serum or Plasma 11 5-15 [facility] Anion gap in Serum or Plasma Ordered By: Quynh Boyer on 08-15-2024 Anion gap [Moles/Vol] 11 mmol/L 5-15 [facility] Atypical lymphocyte percenta geOrdered By: Quynh Boyer on 08-15-2024 Atypical lymphocyte percentage 2+ % [facility] BUN/creatinine ratioOrdered By: Quynh Boyer on 08-15-2024 Urea nitrogen/Creatinine [Mass ratio] 26.6 mg/mg High 10-20 [facility] BUN/creatinine ratio 26.6 RATIO High 10-20 [facility] Blood eosinophils/100 leukoc ytesOrdered By: Quynh Boyer on 08-15-2024 Eosinophils/100 WBC (Bld) 1 % 0-5 [facility] Blood lymphocytes/100 leukoc ytesOrdered By: Quynh Boyer on 08-15-2024 Lymphocytes/100 WBC (Bld) 36 % 19-41 [facility] Blood metamyelocytes/100 hunter kocytesOrdered By: Quynh Boyer on 08-15-2024 Metamyelocytes/100 WBC (Bld) 2 % High 0-1 [facility] Blood metamyelocytes/100 leukocytes 2 % High 0-0 [facility] Blood monocytes/100 leukocyt esOrdered By: Quynh Boyer on 08-15-2024 Monocytes/100 WBC (Bld) 9 % 0-10 [facility] Blood segmented neutrophils/ 100 leukocytesOrdered By: Quynh Boyer on 08-15-2024 Segmented neutrophils/100 WBC (Bld) 50 % 47-70 [facility] Calcium [Mass/Vol]Ordered By : Quynh Boyer on 08-15-2024 Serum or plasma calcium measurement (mass/volume) 8.4 mg/dL 7.6-11.0 [facility] Carbon dioxide, total [Moles /volume] in Central venous bloodOrdered By: Quynh Boyer on 08-15-2024 CO2 [Moles/Vol] 19.9 mmol/L Low 21.0-32.0 [facility] Carbon dioxide, total [Moles/volume] in Central venous blood 19.9 mmol/L Low 21.0-32.0 [facility] Cells counted Molgen (Bld/Ti ss) [#]Ordered By: Quynh Boyer on 08-15-2024 Total cell count 100 MANUAL DIFF [facility] Chloride assayOrdered By: Clementine Boyer on 08-15-2024 Chloride [Moles/Vol] 107 mmol/L 98-108 [facility] Chloride assay 107 mmol/L 98-108 [facility] Creatinine [Mass/Vol]Ordered By: Quynh Boyer on 08-15-2024 Serum creatinine measurement (mass/volume) 0.65 mg/dL Low 0.70-1.20 [facility] Eosinophils/100 WBC (Bld)Ord ered By: Quynh Boyer on 08-15-2024 Blood eosinophils/100 leukocytes 1 % 0-5 [facility] Erythrocyte distribution wid th (RBC) [Entitic vol]Ordered By: Quynh Boyer on 08-15-2024 Erythrocyte distribution width standard deviation 45.7 fl High 35.1-43.9 [facility] Erythrocyte distribution wid th (RBC) [Ratio]Ordered By: Quynh Boyer on 08-15-2024 Erythrocyte distribution width ratio 13.6 % 11.6-14.6 [facility] Erythrocyte distribution wid th ratioOrdered By: Quynh Boyer on 08-15-2024 Erythrocyte distribution width (RBC) [Ratio] 13.6 % 11.6-14.6 [facility] Erythrocyte distribution wid th standard deviationOrdered By: Quynh Boyer on 08-15-2024 Erythrocyte distribution width (RBC) [Ratio] 45.7 fl High 35.1-43.9 [facility] Estimation of creatinine peg aranceOrdered By: Quynh Boyer on 08-15-2024 Estimation of creatinine clearance 127.30 ml/min 50-250 [facility] GFR/1.73 sq M.predicted maki g non-blacks MDRD (S/P/Bld) [Vol rate/Area]Ordered By: Quynh Boyer on 08-15-2024 Glomerular filtration rate (GFR) estimation/1.73 sq m using serum, plasma, or whole b 113 >60 [facility] Glomerular filtration rate ( GFR) estimation/1.73 sq m using serum, plasma, or whole bOrdered By: Quynh Boyer on 08-15-2024 GFR/1.73 sq M.predicted among non-blacks MDRD (S/P/Bld) [Vol rate/Area] 113 mL/min/{1.73_m2} >60 [facility] Glucose [Mass/Vol]Ordered By : Quynh Boyer on 08-15-2024 Serum glucose measurement (mass/volume) 135 mg/dL High 70-99 [facility] Hematocrit Auto (Bld) [Volum e fraction]Ordered By: Quynh Boyer on 08-15-2024 Hematocrit (Bld) [Volume fraction] 33.5 % Low 37-47 [facility] Automated blood hematocrit (percentage) 33.5 % Low 37-47 [facility] Hemoglobin measurementOrdere d By: Quynh Boyer on 08-15-2024 Hemoglobin (Bld) [Mass/Vol] 10.9 g/dL Low 12.0-15.0 [facility] Hemoglobin measurement 10.9 g/dL Low 12.0-15.0 [facility] Lymphocytes Auto (Unsp spec) [#/Vol]Ordered By: Quynh Boyer on 08-15-2024 Absolute lymphocyte count 3.76 X10^3/uL 0.83-4.51 [facility] Lymphocytes/100 WBC (Bld)Ord ered By: Quynh Boyer on 08-15-2024 Blood lymphocytes/100 leukocytes 36 % 19-41 [facility] MCV (RBC) [Entitic vol]Order ed By: Quynh Boyer on 08-15-2024 MCV (mean corpuscular volume) determination 92.0 fL 81-99 [facility] MCV (mean corpuscular volume ) determinationOrdered By: Quynh Boyer on 08-15-2024 MCV (RBC) [Entitic vol] 92.0 fL 81-99 [facility] Mean corpuscular hemoglobin (MCH) determinationOrdered By: Quynh Boyer on 08-15-2024 MCH (RBC) [Entitic mass] 29.9 pg 27.0-32.0 [facility] Mean corpuscular hemoglobin (MCH) determination 29.9 pg 27.0-32.0 [facility] Mean corpuscular hemoglobin concentration (MCHC) determinationOrdered By: Quynh Boyer on 08-15-2024 Mean corpuscular hemoglobin concentration (MCHC) determination 32.5 g/dL 32-36 [facility] Mean platelet volume determi nationOrdered By: Quynh Boyer on 08-15-2024 Mean platelet volume determination 10.7 fl 6.2-12.0 [facility] Monocytes/100 WBC (Bld)Order ed By: Quynh Boyer on 08-15-2024 Blood monocytes/100 leukocytes 9 % 0-10 [facility] Neutrophil percentageOrdered By: Quynh Boyer on 08-15-2024 Neutrophil percentage Not Reportable [facility] Pathologist review Allen (Unsp spec) [Interp]Ordered By: Quynh Boyer on 08-15-2024 Review by pathologist Olga ariza [facility] Platelet countOrdered By: Clementine Boyer on 08-15-2024 Platelets (Bld) [#/Vol] 224 10*3/uL 150-450 [facility] Platelet count 224 K/mm3 150-450 [facility] Potassium (Unsp spec) [Mass/ Vol]Ordered By: Quynh Boyer on 08-15-2024 Potassium measurement (mass/volume) 3.8 mmol/L 3.3-5.1 [facility] Potassium measurement (mass/ volume)Ordered By: Quynh Boyer on 08-15-2024 Potassium (Unsp spec) [Mass/Vol] 3.8 mmol/L 3.3-5.1 [facility] RBC Auto (Bld) [#/Vol]Ordere d By: Quynh Boyer on 08-15-2024 RBC (Bld) [#/Vol] 3.64 10*6/uL Low 4.2-5.4 [facility] Automated blood erythrocyte count 3.64 M/mm3 Low 4.2-5.4 [facility] Review by pathologistOrdered By: Quynh Boyer on 08-15-2024 Pathologist review Allen (Unsp spec) [Interp] Reviewed [facility] Segmented neutrophils/100 WB C (Bld)Ordered By: Quynh Boyer on 08-15-2024 Blood segmented neutrophils/100 leukocytes 50 % 47-70 [facility] Serum creatinine measurement (mass/volume)Ordered By: Quynh Boyer on 08-15-2024 Creatinine [Mass/Vol] 0.65 mg/dL Low 0.70-1.20 [facility] Serum glucose measurement (m ass/volume)Ordered By: Quynh Boyer on 08-15-2024 Glucose [Mass/Vol] 135 mg/dL High 70-99 [facility] Serum or plasma calcium thi urement (mass/volume)Ordered By: Quynh Boyer on 08-15-2024 Calcium [Mass/Vol] 8.4 mg/dL 7.6-11.0 [facility] Serum or plasma urea nitroge n measurement (mass/volume)Ordered By: Quynh Boyer on 08-15-2024 Urea nitrogen [Mass/Vol] 17 mg/dL 4-19 [facility] Sodium levelOrdered By: Quynh Boyer on 08-15-2024 Sodium [Moles/Vol] 138 mmol/L 133-145 [facility] Sodium level 138 mmol/L 133-145 [facility] Total cell countOrdered By: Quynh Boyer on 08-15-2024 Cells counted Molgen (Bld/Tiss) [#] 100 MANUAL DIFF [facility] Urea nitrogen [Mass/Vol]Orde red By: Quynh Boyer on 08-15-2024 Serum or plasma urea nitrogen measurement (mass/volume) 17 mg/dL 4-19 [facility] White blood cell (WBC) count Ordered By: Quynh Boyer on 08-15-2024 WBC (Bld) [#/Vol] 10.5 10*3/uL 4.4-11.0 [facility] White blood cell (WBC) count 10.5 K/mm3 4.4-11.0 [facility] Serum phosphorus measurement Ordered By: Ramana Cervantes on 08-13-2024 Serum phosphorus measurement 2.7 mg/dL 2.7-4.5 [facility] ALP [Catalytic activity/Vol] Ordered By: Ramana Cervantes on 08-12-2024 Serum or plasma alkaline phosphatase measurement 95 U/L 35-104 [facility] ALT [Catalytic activity/Vol] Ordered By: Ramana Cervantes on 08-12-2024 Serum or plasma alanine aminotransferase (ALT) measurement 71 U/L High <35 [facility] Albumin [Mass/Vol]Ordered By : Ramana Cervantes on 08-12-2024 Serum or plasma albumin measurement (mass/volume) 3.5 g/dL 3.5-5.0 [facility] Albumin/Globulin [Mass ratio ]Ordered By: Ramana Cervantes on 08-12-2024 Serum or plasma albumin/globulin mass ratio 0.9 RATIO 0.9-2.4 [facility] Anaerobic cultureOrdered By: Mc Gonzalez on 08-12-2024 Bacteria identified Anaer cx Nom (Unsp spec) No anaerobic bacteria isolated. [facility] Automated lymphocyte count a s percentage of total leukocytesOrdered By: Ramana Cervantes on 08-12-2024 Lymphocytes/100 WBC Auto (Unsp spec) 13.9 % Low 19-41 [facility] Bacteria LM.HPF (Urine sed) [#/Area]Ordered By: Ramana Cervantes on 08-12-2024 Urine sediment bacteria count by microscopy (number/high power field) 2+ /hpf None Seen [facility] Bacteria identified Anaer cx Nom (Unsp spec)Ordered By: Mc Gonzalez on 08-12-2024 Anaerobic culture No anaerobic bacteri a isolated. [facility] Basophil percentageOrdered B y: Ramana Cervantes on 08-12-2024 Basophils/100 WBC (Bld) 0.3 % 0-1 [facility] Basophil percentage 0.3 % 0-1 [facility] Bilirubin Test strip Ql (U)O rdered By: Ramana Cervantes on 08-12-2024 Bilirubin Ql (U) Negative Negative [facility] Bilirubin, totalOrdered By: Ramana Cervantes on 08-12-2024 Bilirubin [Mass/Vol] 0.45 mg/dL 0.00-1.30 [facility] Bilirubin, total 0.45 mg/dL 0.00-1.30 [facility] CRP [Mass/Vol]Ordered By: Temi Gonzalez on 08-12-2024 Serum or plasma C reactive protein measurement (mass/volume) 252.00 mg/L High 0.0-3.0 [facility] Calculated very low density lipoprotein (VLDL) cholesterol measurementOrdered By: Ramana Cervantes on 08-12-2024 Calculated very low density lipoprotein (VLDL) cholesterol measurement 33 mg/dL 5-40 [facility] Calculated very low density lipoprotein (VLDL) cholesterol measurement 33 mg/dL 5-40 [facility] Cholesterol [Mass/Vol]Ordere d By: Ramana Cervantes on 08-12-2024 Serum or plasma cholesterol measurement (mass/volume) 137 mg/dL <201 [facility] Cholesterol in HDL [Mass/Vol ]Ordered By: Ramana Cervantes on 08-12-2024 Serum or plasma cholesterol in HDL measurement (mass/volume) 38 mg/dL Low >40 [facility] Clarity (U)Ordered By: Ramana Cervantes on 08-12-2024 Urine clarity Sl. Cloudy Clear [facility] Color (U)Ordered By: Ramana lazcano on 08-12-2024 Urine color determination Yellow Yellow [facility] ESR (Bld) [Velocity]Ordered By: Mc Gonzalez on 08-12-2024 Erythrocyte sedimentation rate 32 mm/hr High 0-30 [facility] Eosinophil percentageOrdered By: Ramana Cervantes on 08-12-2024 Eosinophils/100 WBC (Bld) 0.0 % 0-5 [facility] Eosinophil percentage 0.0 % 0-5 [facility] Erythrocyte sedimentation ra teOrdered By: Mc Gonzalez on 08-12-2024 ESR (Bld) [Velocity] 32 mm/h High 0-30 [facility] Glucose Ql (U)Ordered By: Kennedy Cervantes on 08-12-2024 Urine glucose detection 1000 mg/dl High Normal [facility] Gram stainOrdered By: Polly Gonzalez on 08-12-2024 Microscopic observation Gram stain Nom (Unsp spec) [facility] HbA1c (Bld) [Mass fraction]O rdered By: Mc Gonzalez on 08-12-2024 Hemoglobin A1c percentage 11.8 % >5.7 [facility] Hemoglobin A1c percentageOrd ered By: Mc Gonzalez on 08-12-2024 HbA1c (Bld) [Mass fraction] 11.8 % >5.7 [facility] Immature granulocytes/100 WB C Auto (Bld)Ordered By: Ramana Cervantes on 08-12-2024 Immature granulocytes/100 WBC (Bld) 1.500 % High 0.0-0.9 [facility] Automated immature granulocyte percentage 1.500 % High 0.0-0.9 [facility] Ketones Test strip Ql (U)Ord ered By: Ramana Cervantes on 08-12-2024 Ketones Ql (U) 50 mg/dl High Negative [facility] Urine ketones detection by test strip 50 mg/dl High Negative [facility] LDL calc ser/plasOrdered By: Ramana Cervantes on 08-12-2024 Cholesterol in LDL [Mass/Vol] 67 mg/dL [facility] LDL calc ser/plas 67 mg/dL [facility] Leukocyte esterase Test stri p Ql (U)Ordered By: Ramana Cervantes on 08-12-2024 Urine leukocyte esterase detection by dipstick 500 /ul High Negative [facility] Lymphocytes/100 WBC Auto (Un sp spec)Ordered By: Ramana Cervantes on 08-12-2024 Automated lymphocyte count as percentage of total leukocytes 13.9 % Low 19-41 [facility] MRSA detection PCROrdered By : Bev Ngo on 08-12-2024 MRSA detection PCR Negative Negative [facility] Magnetic resonance imaging r eportOrdered By: Ramana Huitron on 08-12-2024 Study report [facility] Microscopic analysis of urin e for red blood cells (RBC)Ordered By: Ramana Cervantes on 08-12-2024 Microscopic analysis of urine for red blood cells (RBC) 0 SEEN /hpf [facility] Monocyte percentageOrdered B y: Ramana Cervantes on 08-12-2024 Monocytes/100 WBC (Bld) 5.3 % 0-10 [facility] Monocyte percentage 5.3 % 0-10 [facility] Mucus LM Ql (Urine sed)Order ed By: Ramana Cervantes on 08-12-2024 Mucus Ql (Urine sed) 0 SEEN /hpf [facility] Nasal methicillin resistant Staphylococcus aureus (MRSA) DNA detection by PCROrdered By: Ramana Cervantes on 08-12-2024 MRSA DNA MALIK+probe Ql (Nose) [facility] Nitrite Test strip Ql (U)Ord ered By: Ramana Cervantes on 08-12-2024 Nitrite Ql (U) Negative Negative [facility] No Panel InformationOrdered By: Ramana Cervantes on 08-12-2024 51 U/L High <32 [facility] 1.1 mmol/L 0.0-0.3 [facility] Nucleated red blood cell per centageOrdered By: Ramana Cervantes on 08-12-2024 Nucleated red blood cell percentage 0 % 0-5 [facility] Platelet estimateOrdered By: Ramana Cervantes on 08-12-2024 Platelets LM Ql (Bld) ADEQUATE ADEQ [facility] Platelets LM Ql (Bld)Ordered By: Ramana Cervantes on 08-12-2024 Platelet estimate ADEQUATE [facility] Protein Test strip Ql (U)Ord ered By: Ramana Cervantes on 08-12-2024 Protein Ql (U) 30 mg/dl High Negative [facility] Urine protein assay by test strip, semi-quantitative 30 mg/dl High Negative [facility] Routine wound cultureOrdered By: Mc Gonzalez on 08-12-2024 Microbial culture, routine Corynebacterium amycolatum/xer Abnormal [facility] Microbial culture, routine Staphylococcus auricularis Abnormal [facility] Microbial culture, routine Corynebacterium amycolatum Abnormal [facility] Routine wound culture Staphylococcus aureus Abnormal [facility] Routine wound culture Streptococcus group A Abnormal [facility] Routine wound culture Enterococcus faecalis Abnormal [facility] Routine wound culture Corynebacterium amycolatum Abnormal [facility] S. aureus DNA MALIK+probe Ql ( Unsp spec)Ordered By: Bev Ngo on 08-12-2024 Staphylococcus aureus DNA detection by probe and target amplification method Positive High Negative [facility] Screening total cholesterol/ high density lipoprotein (HDL) cholesterol ratioOrdered By: Ramana Cervantes on 08-12-2024 Screening total cholesterol/high density lipoprotein (HDL) cholesterol ratio 3.63 [facility] Serum globulin measurementOr dered By: Ramana Cervantes on 08-12-2024 Globulin (S) [Mass/Vol] 3.8 g/dL 2.2-4.2 [facility] Serum globulin measurement 3.8 g/dL 2.2-4.2 [facility] Serum or plasma C reactive p rotein measurement (mass/volume)Ordered By: Mc Gonzalez on 08-12-2024 CRP [Mass/Vol] 252.00 mg/L High 0.0-3.0 [facility] Serum or plasma alanine gagnon otransferase (ALT) measurementOrdered By: Ramana Cervantes on 08-12-2024 ALT [Catalytic activity/Vol] 71 U/L High <35 [facility] Serum or plasma albumin thi urement (mass/volume)Ordered By: Ramana Cervantes on 08-12-2024 Albumin [Mass/Vol] 3.5 g/dL 3.5-5.0 [facility] Serum or plasma albumin/glob ulin mass ratioOrdered By: Ramana Cervantes on 08-12-2024 Albumin/Globulin [Mass ratio] 0.9 {ratio} 0.9-2.4 [facility] Serum or plasma alkaline gisselle sphatase measurementOrdered By: Ramana Cervantes on 08-12-2024 ALP [Catalytic activity/Vol] 95 U/L 35-104 [facility] Serum or plasma cholesterol in HDL measurement (mass/volume)Ordered By: Ramana Cervantes on 08-12-2024 Cholesterol in HDL [Mass/Vol] 38 mg/dL Low >40 [facility] Serum or plasma cholesterol measurement (mass/volume)Ordered By: Ramana Cervantes on 08-12-2024 Cholesterol [Mass/Vol] 137 mg/dL <201 [facility] Specific gravity (U) [Rel de nsity]Ordered By: Ramana Cervantes on 08-12-2024 Urine specific gravity measurement 1.015 1.002-1.03 0 [facility] Squamous epithelial cells de tection in urine sediment by light microscopyOrdered By: Ramana Cervantes on 08-12-2024 Epithelial cells.squamous LM Ql (Urine sed) 0 SEEN /hpf 5-10 [facility] Staphylococcus aureus DNA de tection by probe and target amplification methodOrdered By: Bev Ngo on 08-12-2024 S. aureus DNA MALIK+probe Ql (Unsp spec) Positive High Negative [facility] Total proteinOrdered By: Ryan Cervantes on 08-12-2024 Protein [Mass/Vol] 7.4 g/dL 5.9-8.4 [facility] Total protein 7.4 g/dL 5.9-8.4 [facility] Triglycerides measurementOrd ered By: Ramana Cervantes on 08-12-2024 Triglycerides measurement 163 mg/dL <199 [facility] Urine blood detectionOrdered By: Ramana Cervantes on 08-12-2024 Urine blood detection 50 /ul High Negative [facility] Urine clarityOrdered By: Ryan Cervantes on 08-12-2024 Clarity (U) Sl. Cloudy Clear [facility] Urine color determinationOrd ered By: Ramana Cervantes on 08-12-2024 Color (U) Yellow Yellow [facility] Urine glucose detectionOrder ed By: Ramana Cervantes on 08-12-2024 Glucose Ql (U) 1000 mg/dl High Normal [facility] Urine leukocyte esterase det ection by dipstickOrdered By: Ramana Cervantes on 08-12-2024 Leukocyte esterase Test strip Ql (U) 500 /ul High Negative [facility] Urine pHOrdered By: Ramana wiggins on 08-12-2024 pH (U) 6.0 [pH] 5.0 - 8.0 [facility] Urine testOrdered By: Dez Moran on 08-12-2024 HCG ( test) Ql (U) Negative [facility] Urine test Negative [facility] Urine sediment bacteria coun t by microscopy (number/high power field)Ordered By: Ramana Cervantes on 08-12-2024 Bacteria LM.HPF (Urine sed) [#/Area] 2 /[HPF] None Seen [facility] Urine specific gravity measu rementOrdered By: Ramana Cervantes on 08-12-2024 Specific gravity (U) [Rel density] 1.015 1.002-1.03 0 [facility] Urine total bilirubin detect ion by test stripOrdered By: Ramana Cervantes on 08-12-2024 Urine total bilirubin detection by test strip Negative Negative [facility] Urine urobilinogen measureme ntOrdered By: Ramana Cervantes on 08-12-2024 Urobilinogen Ql (U) Normal mg/dl Normal [facility] Urobilinogen Ql (U)Ordered B y: Ramana Cervantes on 08-12-2024 Urine urobilinogen measurement Normal mg/dl Normal [facility] White blood cell countOrdere d By: Ramana Cervantes on 08-12-2024 White blood cell count 10-25 SEEN /hpf 0-5 [facility] White blood cell count 10-25 SEEN /hpf 0-5 [facility] pH (U)Ordered By: Ramana carpio on 08-12-2024 Urine pH 6.0 5.0 - 8.0 [facility] Absolute neutrophil countOrd ered By: Kevin Barcenas on 08-11-2024 Absolute neutrophil count 22.5 X10^3/uL High 2.0-7.7 [facility] Anion gap [Moles/Vol]Ordered By: Kevin Barcenas on 08-11-2024 Anion gap in Serum or Plasma 17 High 5-15 [facility] BUN/creatinine ratioOrdered By: Kevin Barcenas on 08-11-2024 BUN/creatinine ratio 9.7 RATIO Low 10-20 [facility] Basophil percentageOrdered B y: Kevin Barcenas on 08-11-2024 Basophil percentage 0.3 % 0-1 [facility] Blood cultureOrdered By: Nigel Barcenas on 08-11-2024 Bacteria identified Cx Nom (Bld) No growth in 5 days. [facility] Bacteria identified Cx Nom (Bld) No growth in 5 days. [facility] Blood manual differential co mment interpretation (narrative result)Ordered By: Kevin Barcenas on 08-11-2024 Manual differential comment Allen (Bld) [Interp] SEE COMMENT [facility] Calcium [Mass/Vol]Ordered By : Kevin Barcenas on 08-11-2024 Serum or plasma calcium measurement (mass/volume) 9.7 mg/dL 7.6-11.0 [facility] Carbon dioxide, total [Moles /volume] in Central venous bloodOrdered By: Kevin Barcenas on 08-11-2024 Carbon dioxide, total [Moles/volume] in Central venous blood 18.7 mmol/L Low 21.0-32.0 [facility] Chloride assayOrdered By: Puma Barcenas on 08-11-2024 Chloride assay 91 mmol/L Low 98-108 [facility] Creatinine [Mass/Vol]Ordered By: Kevin Barcenas on 08-11-2024 Serum creatinine measurement (mass/volume) 1.19 mg/dL 0.70-1.20 [facility] Eosinophil percentageOrdered By: Kevin Barcenas on 08-11-2024 Eosinophil percentage 0.0 % 0-5 [facility] Erythrocyte distribution wid th (RBC) [Entitic vol]Ordered By: Kevin Barcenas on 08-11-2024 Erythrocyte distribution width standard deviation 42.4 fl 35.1-43.9 [facility] Erythrocyte distribution wid th (RBC) [Ratio]Ordered By: Kevin Barcenas on 08-11-2024 Erythrocyte distribution width ratio 12.8 % 11.6-14.6 [facility] Erythrocyte morphology asses smentOrdered By: Kevin Barcenas on 08-11-2024 RBC morphology finding Nom (Bld) N CHROM NORMAL NORM C&C [facility] Estimation of creatinine peg aranceOrdered By: Kevin Barcenas on 08-11-2024 Estimation of creatinine clearance 66.77 ml/min 50-250 [facility] GFR/1.73 sq M.predicted maki g non-blacks MDRD (S/P/Bld) [Vol rate/Area]Ordered By: Kevin Barcenas on 08-11-2024 Glomerular filtration rate (GFR) estimation/1.73 sq m using serum, plasma, or whole b 59 Low >60 [facility] Glucose [Mass/Vol]Ordered By : Kevin Barcenas on 08-11-2024 Serum glucose measurement (mass/volume) 294 mg/dL High 70-99 [facility] HbA1c (Bld) [Mass fraction]O rdered By: Ramana Cervantes on 08-11-2024 Hemoglobin A1c percentage 11.9 % >5.7 [facility] Hematocrit Auto (Bld) [Volum e fraction]Ordered By: Kevin Barcenas on 08-11-2024 Automated blood hematocrit (percentage) 38.6 % 37-47 [facility] Hemoglobin measurementOrdere d By: Kevin Barcenas on 08-11-2024 Hemoglobin measurement 13.1 g/dL 12.0-15.0 [facility] Immature granulocytes/100 WB C Auto (Bld)Ordered By: Kevin Barcenas on 08-11-2024 Automated immature granulocyte percentage 1.200 % High 0.0-0.9 [facility] Lactic acid measurementOrder ed By: Ramana Cervantes on 08-11-2024 Lactic acid measurement 1.6 mmol/L 0.0-2.0 [facility] Lymphocytes Auto (Unsp spec) [#/Vol]Ordered By: Kevin Barcenas on 08-11-2024 Absolute lymphocyte count 2.00 X10^3/uL 0.83-4.51 [facility] Lymphocytes/100 WBC Auto (Un sp spec)Ordered By: Kevin Barcenas on 08-11-2024 Automated lymphocyte count as percentage of total leukocytes 7.8 % Low 19-41 [facility] MCV (RBC) [Entitic vol]Order ed By: Kevin Barcenas on 08-11-2024 MCV (mean corpuscular volume) determination 89.6 fL 81-99 [facility] Macrocytes detectionOrdered By: Kevin Barcenas on 08-11-2024 Macrocytes Ql (Bld) RARE [facility] Macrocytes detection RARE [facility] Magnesium (Unsp spec) [Mass/ Vol]Ordered By: Ramana Cervantes on 08-11-2024 Magnesium measurement (mass/volume) 1.7 mg/dL 1.5-2.2 [facility] Magnesium measurement (mass/ volume)Ordered By: Ramana Cervantes on 08-11-2024 Magnesium (Unsp spec) [Mass/Vol] 1.7 mg/dL 1.5-2.2 [facility] Manual differential comment Allen (Bld) [Interp]Ordered By: Kevin Barcenas on 08-11-2024 Blood manual differential comment interpretation (narrative result) SEE COMMENT [facility] Mean corpuscular hemoglobin (MCH) determinationOrdered By: Kevin Barcenas on 08-11-2024 Mean corpuscular hemoglobin (MCH) determination 30.4 pg 27.0-32.0 [facility] Mean corpuscular hemoglobin concentration (MCHC) determinationOrdered By: Kevin Barcenas on 08-11-2024 Mean corpuscular hemoglobin concentration (MCHC) determination 33.9 g/dL 32-36 [facility] Mean platelet volume determi nationOrdered By: Kevin Barcenas on 08-11-2024 Mean platelet volume determination 10.0 fl 6.2-12.0 [facility] Monocyte percentageOrdered B y: Kevin Barcenas on 08-11-2024 Monocyte percentage 3.3 % 0-10 [facility] Neutrophil percentageOrdered By: Kevin Barcenas on 08-11-2024 Neutrophil percentage 87.4 % High 47-70 [facility] Nucleated red blood cell per centageOrdered By: Kevin Barcenas on 08-11-2024 Nucleated red blood cell percentage 0 % 0-5 [facility] Platelet countOrdered By: Puma Barcenas on 08-11-2024 Platelet count 237 K/mm3 150-450 [facility] Platelets LM Ql (Bld)Ordered By: Kevin Barcenas on 08-11-2024 Platelet estimate ADEQUATE ADEQ [facility] Potassium (Unsp spec) [Mass/ Vol]Ordered By: Kevin Barcenas on 08-11-2024 Potassium measurement (mass/volume) 4.5 mmol/L 3.3-5.1 [facility] RBC Auto (Bld) [#/Vol]Ordere d By: Kevin Barcenas on 08-11-2024 Automated blood erythrocyte count 4.31 M/mm3 4.2-5.4 [facility] RBC morphology finding Nom ( Bld)Ordered By: Kevin Barcenas on 08-11-2024 Erythrocyte morphology assessment N CHROM NORMAL NORM C&C [facility] Serum or plasma valproate me asurement (mass/volume)Ordered By: Ramana Cervantes on 08-11-2024 Valproate [Mass/Vol] ug/mL Low 50-100 [facility] Sodium levelOrdered By: Kevin Barcenas on 08-11-2024 Sodium level 127 mmol/L Low 133-145 [facility] TSH DL <= 0.005 mIU/L QnOrde red By: Ramana Cervantes on 08-11-2024 TSH Qn 1.550 uIU/mL 0.300-4.20 0 [facility] Serum or plasma thyroid stimulating hormone (TSH) measurement by high sensitivity met 1.550 uIU/mL 0.300-4.20 0 [facility] Urea nitrogen [Mass/Vol]Orde red By: Kevin Barcenas on 08-11-2024 Serum or plasma urea nitrogen measurement (mass/volume) 12 mg/dL 4-19 [facility] Valproate [Mass/Vol]Ordered By: Ramana Cervantes on 08-11-2024 Serum or plasma valproate measurement (mass/volume) < 3 ug/mL Low 50-100 [facility] White blood cell (WBC) count Ordered By: Kevin Barcenas on 08-11-2024 White blood cell (WBC) count 25.7 K/mm3 High 4.4-11.0 [facility] Absolute lymphocyte countOrd ered By: Ron Hernandez on 07-31-2024 Lymphocytes Auto (Unsp spec) [#/Vol] 1.99 10*3/uL 0.83-4.51 [facility] Absolute neutrophil countOrd ered By: Ron Hernandez on 07-31-2024 Absolute neutrophil count 15.1 X10^3/uL High 2.0-7.7 [facility] Anion gap [Moles/Vol]Ordered By: Ron Hernandez on 07-31-2024 Anion gap in Serum or Plasma 14 5-15 [facility] Anion gap in Serum or Plasma Ordered By: Ron Hernandez on 07-31-2024 Anion gap [Moles/Vol] 14 mmol/L 5-15 [facility] Automated lymphocyte count a s percentage of total leukocytesOrdered By: Ron Hernandez on 07-31-2024 Lymphocytes/100 WBC Auto (Unsp spec) 10.8 % Low 19-41 [facility] BUN/creatinine ratioOrdered By: Ron Hernandez on 07-31-2024 Urea nitrogen/Creatinine [Mass ratio] 15.4 mg/mg 10-20 [facility] BUN/creatinine ratio 15.4 RATIO 10-20 [facility] Basophil percentageOrdered B y: Ron Hernandez on 07-31-2024 Basophils/100 WBC (Bld) 0.4 % 0-1 [facility] Basophil percentage 0.4 % 0-1 [facility] CRP [Mass/Vol]Ordered By: Terry Hernandez on 07-31-2024 Serum or plasma C reactive protein measurement (mass/volume) 21.90 mg/L High 0.0-3.0 [facility] Calcium [Mass/Vol]Ordered By : Ron Hernandez on 07-31-2024 Serum or plasma calcium measurement (mass/volume) 9.1 mg/dL 7.6-11.0 [facility] Carbon dioxide, total [Moles /volume] in Central venous bloodOrdered By: Ron Hernandez on 07-31-2024 CO2 [Moles/Vol] 19.5 mmol/L Low 21.0-32.0 [facility] Carbon dioxide, total [Moles/volume] in Central venous blood 19.5 mmol/L Low 21.0-32.0 [facility] Chloride assayOrdered By: Terry Hernandez on 07-31-2024 Chloride [Moles/Vol] 100 mmol/L 98-108 [facility] Chloride assay 100 mmol/L 98-108 [facility] Creatinine [Mass/Vol]Ordered By: Ron Hernandez on 07-31-2024 Serum creatinine measurement (mass/volume) 0.94 mg/dL 0.70-1.20 [facility] ESR (Bld) [Velocity]Ordered By: Ron Hernandez on 07-31-2024 Erythrocyte sedimentation rate 19 mm/hr 0-30 [facility] Eosinophil percentageOrdered By: Ron Hernandez on 07-31-2024 Eosinophils/100 WBC (Bld) 0.6 % 0-5 [facility] Eosinophil percentage 0.6 % 0-5 [facility] Erythrocyte distribution wid th (RBC) [Entitic vol]Ordered By: Ron Hernandez on 07-31-2024 Erythrocyte distribution width standard deviation 42.6 fl 35.1-43.9 [facility] Erythrocyte distribution wid th (RBC) [Ratio]Ordered By: Ron Hernandez on 07-31-2024 Erythrocyte distribution width ratio 13.0 % 11.6-14.6 [facility] Erythrocyte distribution wid th ratioOrdered By: Ron Hernandez on 07-31-2024 Erythrocyte distribution width (RBC) [Ratio] 13.0 % 11.6-14.6 [facility] Erythrocyte distribution wid th standard deviationOrdered By: Ron Hernandez on 07-31-2024 Erythrocyte distribution width (RBC) [Ratio] 42.6 fl 35.1-43.9 [facility] Erythrocyte sedimentation ra teOrdered By: Ron Hernandez on 07-31-2024 ESR (Bld) [Velocity] 19 mm/h 0-30 [facility] GFR/1.73 sq M.predicted maki g non-blacks MDRD (S/P/Bld) [Vol rate/Area]Ordered By: Ron Hernandez on 07-31-2024 Glomerular filtration rate (GFR) estimation/1.73 sq m using serum, plasma, or whole b 78 >60 [facility] Glomerular filtration rate ( GFR) estimation/1.73 sq m using serum, plasma, or whole bOrdered By: Ron Hernandez on 07-31-2024 GFR/1.73 sq M.predicted among non-blacks MDRD (S/P/Bld) [Vol rate/Area] 78 mL/min/{1.73_m2} >60 [facility] Glucose [Mass/Vol]Ordered By : Ron Hernandez on 07-31-2024 Serum glucose measurement (mass/volume) 311 mg/dL High 70-99 [facility] Hematocrit Auto (Bld) [Volum e fraction]Ordered By: Ron Hernandez on 07-31-2024 Hematocrit (Bld) [Volume fraction] 38.9 % 37-47 [facility] Automated blood hematocrit (percentage) 38.9 % 37-47 [facility] Hemoglobin measurementOrdere d By: Ron Hernandez on 07-31-2024 Hemoglobin (Bld) [Mass/Vol] 13.5 g/dL 12.0-15.0 [facility] Hemoglobin measurement 13.5 g/dL 12.0-15.0 [facility] Immature granulocytes/100 WB C Auto (Bld)Ordered By: Ron Hernandez on 07-31-2024 Immature granulocytes/100 WBC (Bld) 0.600 % 0.0-0.9 [facility] Automated immature granulocyte percentage 0.600 % 0.0-0.9 [facility] Lactic acid measurementOrder ed By: Ron Hernandez on 07-31-2024 Lactic acid measurement 1.4 mmol/L 0.0-2.0 [facility] Lymphocytes Auto (Unsp spec) [#/Vol]Ordered By: Ron Hernandez on 07-31-2024 Absolute lymphocyte count 1.99 X10^3/uL 0.83-4.51 [facility] Lymphocytes/100 WBC Auto (Un sp spec)Ordered By: Ron Hernandez on 07-31-2024 Automated lymphocyte count as percentage of total leukocytes 10.8 % Low 19-41 [facility] MCV (RBC) [Entitic vol]Order ed By: Ron Hernandez on 07-31-2024 MCV (mean corpuscular volume) determination 88.8 fL 81-99 [facility] MCV (mean corpuscular volume ) determinationOrdered By: Ron Hernandez on 07-31-2024 MCV (RBC) [Entitic vol] 88.8 fL 81-99 [facility] Mean corpuscular hemoglobin (MCH) determinationOrdered By: Ron Hernandez on 07-31-2024 MCH (RBC) [Entitic mass] 30.8 pg 27.0-32.0 [facility] Mean corpuscular hemoglobin (MCH) determination 30.8 pg 27.0-32.0 [facility] Mean corpuscular hemoglobin concentration (MCHC) determinationOrdered By: Ron Hernandez on 07-31-2024 Mean corpuscular hemoglobin concentration (MCHC) determination 34.7 g/dL 32-36 [facility] Mean platelet volume determi nationOrdered By: Ron Hernandez on 07-31-2024 Mean platelet volume determination 10.7 fl 6.2-12.0 [facility] Monocyte percentageOrdered B y: Ron Hernandez on 07-31-2024 Monocytes/100 WBC (Bld) 5.9 % 0-10 [facility] Monocyte percentage 5.9 % 0-10 [facility] Neutrophil percentageOrdered By: Ron Hernandez on 07-31-2024 Neutrophils/100 WBC (Bld) 81.7 % High 47-70 [facility] Neutrophil percentage 81.7 % High 47-70 [facility] Nucleated red blood cell per centageOrdered By: Ron Hernandez on 07-31-2024 Nucleated red blood cell percentage 0 % 0-5 [facility] Platelet countOrdered By: Terry Hernandez on 07-31-2024 Platelets (Bld) [#/Vol] 194 10*3/uL 150-450 [facility] Platelet count 194 K/mm3 150-450 [facility] Potassium (Unsp spec) [Mass/ Vol]Ordered By: Ron Hernandez on 07-31-2024 Potassium measurement (mass/volume) 4.4 mmol/L 3.3-5.1 [facility] Potassium measurement (mass/ volume)Ordered By: Ron Hernandez on 07-31-2024 Potassium (Unsp spec) [Mass/Vol] 4.4 mmol/L 3.3-5.1 [facility] RBC Auto (Bld) [#/Vol]Ordere d By: Ron Hernandez on 07-31-2024 RBC (Bld) [#/Vol] 4.38 10*6/uL 4.2-5.4 [facility] Automated blood erythrocyte count 4.38 M/mm3 4.2-5.4 [facility] Serum creatinine measurement (mass/volume)Ordered By: Ron Hernandez on 07-31-2024 Creatinine [Mass/Vol] 0.94 mg/dL 0.70-1.20 [facility] Serum glucose measurement (m ass/volume)Ordered By: Ron Hernandez on 07-31-2024 Glucose [Mass/Vol] 311 mg/dL High 70-99 [facility] Serum or plasma C reactive p rotein measurement (mass/volume)Ordered By: Ron Hernandez on 07-31-2024 CRP [Mass/Vol] 21.90 mg/L High 0.0-3.0 [facility] Serum or plasma calcium thi urement (mass/volume)Ordered By: Ron Hernandez on 07-31-2024 Calcium [Mass/Vol] 9.1 mg/dL 7.6-11.0 [facility] Serum or plasma urea nitroge n measurement (mass/volume)Ordered By: Ron Hernandez on 07-31-2024 Urea nitrogen [Mass/Vol] 15 mg/dL 4-19 [facility] Sodium levelOrdered By: Chio Hernandez on 07-31-2024 Sodium [Moles/Vol] 133 mmol/L 133-145 [facility] Sodium level 133 mmol/L 133-145 [facility] Urea nitrogen [Mass/Vol]Orde red By: Ron Hernandez on 07-31-2024 Serum or plasma urea nitrogen measurement (mass/volume) 15 mg/dL 4-19 [facility] White blood cell (WBC) count Ordered By: Ron Hernandez on 07-31-2024 WBC (Bld) [#/Vol] 18.5 10*3/uL High 4.4-11.0 [facility] White blood cell (WBC) count 18.5 K/mm3 High 4.4-11.0 [facility] Absolute lymphocyte countOrd ered By: ED PROVIDER on 07-11-2024 Lymphocytes Auto (Unsp spec) [#/Vol] 2.70 10*3/uL 0.83-4.51 [facility] Absolute neutrophil countOrd ered By: ED PROVIDER on 07-11-2024 Absolute neutrophil count 4.5 X10^3/uL 2.0-7.7 [facility] Activated partial thrombopla stin time (aPTT) in platelet poor plasma by coagulation aOrdered By: Dre Deal on 07-11-2024 aPTT Coag (PPP) [Time] 26.1 s 24.1-36.2 [facility] Automated lymphocyte count a s percentage of total leukocytesOrdered By: ED PROVIDER on 07-11-2024 Lymphocytes/100 WBC Auto (Unsp spec) 32.8 % 19-41 [facility] Basophil percentageOrdered B y: ED PROVIDER on 07-11-2024 Basophils/100 WBC (Bld) 0.7 % 0-1 [facility] Basophil percentage 0.7 % 0-1 [facility] Blood urea nitrogen (BUN)/cr eatinine ratioOrdered By: Dre Deal on 07-11-2024 Blood urea nitrogen (BUN)/creatinine ratio 15.1 RATIO 10-20 [facility] Calcium [Mass/Vol]Ordered By : Dre Deal on 07-11-2024 Serum or plasma calcium measurement (mass/volume) 8.5 mg/dL 8.5-10.1 [facility] Carbon dioxide measurementOr dered By: Dre Deal on 07-11-2024 CO2 [Moles/Vol] 21.0 mmol/L 21.0-32.0 [facility] Carbon dioxide measurement 21.0 mmol/L 21.0-32.0 [facility] Chloride measurementOrdered By: Dre Deal on 07-11-2024 Chloride [Moles/Vol] 106 mmol/L 98-107 [facility] Chloride measurement 106 mmol/L 98-107 [facility] Creatinine [Mass/Vol]Ordered By: Dre Deal on 07-11-2024 Serum or plasma creatinine measurement (mass/volume) 0.99 mg/dL 0.55-1.02 [facility] Eosinophil percentageOrdered By: ED PROVIDER on 07-11-2024 Eosinophils/100 WBC (Bld) 1.5 % 0-5 [facility] Eosinophil percentage 1.5 % 0-5 [facility] Erythrocyte distribution wid th (RBC) [Entitic vol]Ordered By: ED PROVIDER on 07-11-2024 Erythrocyte distribution width standard deviation 43.2 fl 35.1-43.9 [facility] Erythrocyte distribution wid th (RBC) [Ratio]Ordered By: ED PROVIDER on 07-11-2024 Erythrocyte distribution width ratio 13.1 % 11.6-14.6 [facility] Erythrocyte distribution wid th ratioOrdered By: ED PROVIDER on 07-11-2024 Erythrocyte distribution width (RBC) [Ratio] 13.1 % 11.6-14.6 [facility] Erythrocyte distribution wid th standard deviationOrdered By: ED PROVIDER on 07-11-2024 Erythrocyte distribution width (RBC) [Ratio] 43.2 fl 35.1-43.9 [facility] Estimated glomerular filtrat ion rate (GFR) AmericanOrdered By: Dre Deal on 07-11-2024 Estimated glomerular filtration rate (GFR) 79 mL/min >60 [facility] Estimation of creatinine peg aranceOrdered By: Dre Deal on 07-11-2024 Estimation of creatinine clearance 80.82 ml/min [facility] Glomerular filtration rate ( GFR) estimationOrdered By: Dre Deal on 07-11-2024 GFR/1.73 sq M.predicted among non-blacks MDRD (S/P/Bld) [Vol rate/Area] 65 mL/min/{1.73_m2} >60 [facility] Glomerular filtration rate (GFR) estimation 65 mL/min >60 [facility] Glucose measurementOrdered B y: Dre Deal on 07-11-2024 Glucose [Mass/Vol] 366 mg/dL High 74-106 [facility] Glucose measurement 366 mg/dL High 74-106 [facility] Glucose measurement at bedsi deOrdered By: Dre Deal on 07-11-2024 Glucose [Mass/Vol] 302 mg/dL High 74-106 [facility] Glucose measurement at bedside 302 mg/dL High 74-106 [facility] Hematocrit Auto (Bld) [Volum e fraction]Ordered By: ED PROVIDER on 07-11-2024 Hematocrit (Bld) [Volume fraction] 42.1 % 37-47 [facility] Automated blood hematocrit (percentage) 42.1 % 37-47 [facility] Hemoglobin measurementOrdere d By: ED PROVIDER on 07-11-2024 Hemoglobin (Bld) [Mass/Vol] 14.2 g/dL 12.0-15.0 [facility] Hemoglobin measurement 14.2 g/dL 12.0-15.0 [facility] Immature granulocytes/100 WB C Auto (Bld)Ordered By: ED PROVIDER on 07-11-2024 Immature granulocytes/100 WBC (Bld) 1.100 % High 0.0-0.9 [facility] Automated immature granulocyte percentage 1.100 % High 0.0-0.9 [facility] International normalized rat io (INR) calculationOrdered By: Dre Deal on 07-11-2024 International normalized ratio (INR) calculation 0.9 [facility] Lymphocytes Auto (Unsp spec) [#/Vol]Ordered By: ED PROVIDER on 07-11-2024 Absolute lymphocyte count 2.70 X10^3/uL 0.83-4.51 [facility] Lymphocytes/100 WBC Auto (Un sp spec)Ordered By: ED PROVIDER on 07-11-2024 Automated lymphocyte count as percentage of total leukocytes 32.8 % 19-41 [facility] MCV (RBC) [Entitic vol]Order ed By: ED PROVIDER on 07-11-2024 MCV (mean corpuscular volume) determination 89.4 fL 81-99 [facility] MCV (mean corpuscular volume ) determinationOrdered By: ED PROVIDER on 07-11-2024 MCV (RBC) [Entitic vol] 89.4 fL 81-99 [facility] Mean corpuscular hemoglobin (MCH) determinationOrdered By: ED PROVIDER on 07-11-2024 MCH (RBC) [Entitic mass] 30.1 pg 27.0-32.0 [facility] Mean corpuscular hemoglobin (MCH) determination 30.1 pg 27.0-32.0 [facility] Mean corpuscular hemoglobin concentration (MCHC) determinationOrdered By: ED PROVIDER on 07-11-2024 Mean corpuscular hemoglobin concentration (MCHC) determination 33.7 g/dL 32-36 [facility] Mean platelet volume determi nationOrdered By: ED PROVIDER on 07-11-2024 Mean platelet volume determination 10.5 fl 6.2-12.0 [facility] Monocyte percentageOrdered B y: ED PROVIDER on 07-11-2024 Monocytes/100 WBC (Bld) 9.2 % 0-10 [facility] Monocyte percentage 9.2 % 0-10 [facility] Neutrophil percentageOrdered By: ED PROVIDER on 07-11-2024 Neutrophils/100 WBC (Bld) 54.7 % 47-70 [facility] Neutrophil percentage 54.7 % 47-70 [facility] Nucleated red blood cell per centageOrdered By: ED PROVIDER on 07-11-2024 Nucleated red blood cell percentage 0 % 0-5 [facility] Platelet countOrdered By: ED PROVIDER on 07-11-2024 Platelets (Bld) [#/Vol] 205 10*3/uL 150-450 [facility] Platelet count 205 K/mm3 150-450 [facility] Potassium measurementOrdered By: Dre Deal on 07-11-2024 Potassium [Moles/Vol] 4.1 mmol/L 3.5-5.1 [facility] Potassium measurement 4.1 mmol/L 3.5-5.1 [facility] Prothrombin timeOrdered By: Dre Deal on 07-11-2024 PT Coag (PPP) [Time] 12.3 s 11.7-14.9 [facility] Prothrombin time 12.3 SECONDS 11.7-14.9 [facility] RBC Auto (Bld) [#/Vol]Ordere d By: ED PROVIDER on 07-11-2024 RBC (Bld) [#/Vol] 4.71 10*6/uL 4.2-5.4 [facility] Automated blood erythrocyte count 4.71 M/mm3 4.2-5.4 [facility] Serum anion gap measurementO rdered By: Dre Deal on 07-11-2024 Serum anion gap measurement 9 5-15 [facility] Serum or plasma calcium thi urement (mass/volume)Ordered By: Dre Deal on 07-11-2024 Calcium [Mass/Vol] 8.5 mg/dL 8.5-10.1 [facility] Serum or plasma creatinine m easurement (mass/volume)Ordered By: Dre Deal on 07-11-2024 Creatinine [Mass/Vol] 0.99 mg/dL 0.55-1.02 [facility] Serum or plasma urea nitroge n measurement (mass/volume)Ordered By: Dre Deal on 07-11-2024 Urea nitrogen [Mass/Vol] 15 mg/dL - [facility] Sodium levelOrdered By: Dregermán Deal on 07-11-2024 Sodium [Moles/Vol] 136 mmol/L 136-145 [facility] Sodium level 136 mmol/L 136-145 [facility] Urea nitrogen [Mass/Vol]Orde red By: Dre Deal on 07-11-2024 Serum or plasma urea nitrogen measurement (mass/volume) 15 mg/dL 7-18 [facility] White blood cell (WBC) count Ordered By: ED PROVIDER on 07-11-2024 WBC (Bld) [#/Vol] 8.2 10*3/uL 4.4-11.0 [facility] White blood cell (WBC) count 8.2 K/mm3 4.4-11.0 [facility] aPTT Coag (PPP) [Time]Ordere d By: Dre Deal on 07-11-2024 Activated partial thromboplastin time (aPTT) in platelet poor plasma by coagulation a 26.1 Seconds 24.1-36.2 [facility] ALP [Catalytic activity/Vol] Ordered By: Rigo Espinal on 06-12-2024 Serum or plasma alkaline phosphatase measurement 99 U/L 45-117 [facility] ALT [Catalytic activity/Vol] Ordered By: Rigo Espinal on 06-12-2024 Serum or plasma alanine aminotransferase (ALT) measurement 97 U/L High 13-56 [facility] Absolute lymphocyte countOrd ered By: Rigo Espinal on 06-12-2024 Lymphocytes Auto (Unsp spec) [#/Vol] 4.77 10*3/uL High 0.83-4.51 [facility] Absolute neutrophil countOrd ered By: Rigo Espinal on 06-12-2024 Absolute neutrophil count 3.9 X10^3/uL 2.0-7.7 [facility] Albumin [Mass/Vol]Ordered By : Rigo Espinal on 06-12-2024 Serum or plasma albumin measurement (mass/volume) 3.7 g/dL 3.2-5.0 [facility] Albumin to globulin ratioOrd ered By: Rigo Espinal on 06-12-2024 Albumin to globulin ratio 0.8 RATIO Low 0.9-2.4 [facility] Automated lymphocyte count a s percentage of total leukocytesOrdered By: Rigo Espinal on 06-12-2024 Lymphocytes/100 WBC Auto (Unsp spec) 48.5 % High 19-41 [facility] Bacteria LM.HPF (Urine sed) [#/Area]Ordered By: Rigo Espinal on 06-12-2024 Urine sediment bacteria count by microscopy (number/high power field) 1+ /hpf None Seen [facility] Basophil percentageOrdered B y: Rigo Espinal on 06-12-2024 Basophils/100 WBC (Bld) 0.8 % 0-1 [facility] Basophil percentage 0.8 % 0-1 [facility] Bilirubin Test strip Ql (U)O rdered By: Rigo Espinal on 06-12-2024 Bilirubin Ql (U) Negative Negative [facility] Bilirubin, totalOrdered By: Rigo Espinal on 06-12-2024 Bilirubin [Mass/Vol] 0.40 mg/dL 0.20-1.00 [facility] Bilirubin, total 0.40 mg/dL 0.20-1.00 [facility] Blood urea nitrogen (BUN)/cr eatinine ratioOrdered By: Rigo Espinal on 06-12-2024 Blood urea nitrogen (BUN)/creatinine ratio 14.3 RATIO 10-20 [facility] Calcium [Mass/Vol]Ordered By : iRgo Espinal on 06-12-2024 Serum or plasma calcium measurement (mass/volume) 9.3 mg/dL 8.5-10.1 [facility] Carbon dioxide measurementOr dered By: Rigo Espinal on 06-12-2024 CO2 [Moles/Vol] 26.0 mmol/L 21.0-32.0 [facility] Carbon dioxide measurement 26.0 mmol/L 21.0-32.0 [facility] Chloride measurementOrdered By: Rigo Espinal on 06-12-2024 Chloride [Moles/Vol] 102 mmol/L 98-107 [facility] Chloride measurement 102 mmol/L 98-107 [facility] Clarity (U)Ordered By: Rigo Espinal on 06-12-2024 Urine clarity Clear Clear [facility] Color (U)Ordered By: Rigo owusu on 06-12-2024 Urine color determination Yellow Yellow [facility] Creatinine [Mass/Vol]Ordered By: Rigo Espinal on 06-12-2024 Serum or plasma creatinine measurement (mass/volume) 1.19 mg/dL High 0.55-1.02 [facility] Eosinophil percentageOrdered By: Rigo Espinal on 06-12-2024 Eosinophils/100 WBC (Bld) 1.5 % 0-5 [facility] Eosinophil percentage 1.5 % 0-5 [facility] Erythrocyte distribution wid th (RBC) [Entitic vol]Ordered By: Rigo Espinal on 06-12-2024 Erythrocyte distribution width standard deviation 43.8 fl 35.1-43.9 [facility] Erythrocyte distribution wid th (RBC) [Ratio]Ordered By: Rigo Espinal on 06-12-2024 Erythrocyte distribution width ratio 13.4 % 11.6-14.6 [facility] Erythrocyte distribution wid th ratioOrdered By: Rigo Espinal on 06-12-2024 Erythrocyte distribution width (RBC) [Ratio] 13.4 % 11.6-14.6 [facility] Erythrocyte distribution wid th standard deviationOrdered By: Rigo Espinal on 06-12-2024 Erythrocyte distribution width (RBC) [Ratio] 43.8 fl 35.1-43.9 [facility] Estimated glomerular filtrat ion rate (GFR) AmericanOrdered By: Rigo Espinal on 06-12-2024 Estimated glomerular filtration rate (GFR) 64 mL/min >60 [facility] Estimation of creatinine peg aranceOrdered By: Rigo Espinal on 06-12-2024 Estimation of creatinine clearance 66.58 ml/min [facility] Glomerular filtration rate ( GFR) estimationOrdered By: Rigo Espinal on 06-12-2024 GFR/1.73 sq M.predicted among non-blacks MDRD (S/P/Bld) [Vol rate/Area] 53 mL/min/{1.73_m2} Low >60 [facility] Glomerular filtration rate (GFR) estimation 53 mL/min Low >60 [facility] Glucose Ql (U)Ordered By: Anjum Espinal on 06-12-2024 Urine glucose detection 1000 mg/dl High Normal [facility] Glucose measurementOrdered B y: Rigo Espinal on 06-12-2024 Glucose [Mass/Vol] 368 mg/dL High 74-106 [facility] Glucose measurement 368 mg/dL High 74-106 [facility] Hematocrit Auto (Bld) [Volum e fraction]Ordered By: Rigo Espinal on 06-12-2024 Hematocrit (Bld) [Volume fraction] 42.9 % 37-47 [facility] Automated blood hematocrit (percentage) 42.9 % 37-47 [facility] Hemoglobin measurementOrdere d By: Rigo Espinal on 06-12-2024 Hemoglobin (Bld) [Mass/Vol] 14.7 g/dL 12.0-15.0 [facility] Hemoglobin measurement 14.7 g/dL 12.0-15.0 [facility] Immature granulocytes/100 WB C Auto (Bld)Ordered By: Rigo Espinal on 06-12-2024 Immature granulocytes/100 WBC (Bld) 0.900 % 0.0-0.9 [facility] Automated immature granulocyte percentage 0.900 % 0.0-0.9 [facility] Ketones Test strip Ql (U)Ord ered By: Rigo Espinal on 06-12-2024 Ketones Ql (U) Negative Negative [facility] Lactic acid measurementOrder ed By: Rigo Espinal on 06-12-2024 Lactic acid measurement 2.0 mmol/L 0.4-2.0 [facility] Leukocyte esterase Test stri p Ql (U)Ordered By: Rigo Espinal on 06-12-2024 Urine leukocyte esterase detection by dipstick 100 /ul High Negative [facility] Lipase measurementOrdered By : Rigo Espinal on 06-12-2024 Lipase measurement 49 U/L 13-75 [facility] Lymphocytes Auto (Unsp spec) [#/Vol]Ordered By: Rigo Espinal on 06-12-2024 Absolute lymphocyte count 4.77 X10^3/uL High 0.83-4.51 [facility] Lymphocytes/100 WBC Auto (Un sp spec)Ordered By: Rigo Espinal on 06-12-2024 Automated lymphocyte count as percentage of total leukocytes 48.5 % High 19-41 [facility] MCV (RBC) [Entitic vol]Order ed By: Rigo Espinal on 06-12-2024 MCV (mean corpuscular volume) determination 89.4 fL 81-99 [facility] MCV (mean corpuscular volume ) determinationOrdered By: Rigo Espinal on 06-12-2024 MCV (RBC) [Entitic vol] 89.4 fL 81-99 [facility] Mean corpuscular hemoglobin (MCH) determinationOrdered By: Rigo Espinal on 06-12-2024 MCH (RBC) [Entitic mass] 30.6 pg 27.0-32.0 [facility] Mean corpuscular hemoglobin (MCH) determination 30.6 pg 27.0-32.0 [facility] Mean corpuscular hemoglobin concentration (MCHC) determinationOrdered By: Rigo Espinal on 06-12-2024 Mean corpuscular hemoglobin concentration (MCHC) determination 34.3 g/dL 32-36 [facility] Mean platelet volume determi nationOrdered By: Rigo Espinal on 06-12-2024 Mean platelet volume determination 11.2 fl 6.2-12.0 [facility] Microscopic analysis of urin e for red blood cells (RBC)Ordered By: Rigo Espinal on 06-12-2024 Microscopic analysis of urine for red blood cells (RBC) > 100 SEEN /hpf 0-5 [facility] Monocyte percentageOrdered B y: Rigo Espinal on 06-12-2024 Monocytes/100 WBC (Bld) 8.7 % 0-10 [facility] Monocyte percentage 8.7 % 0-10 [facility] Mucus LM Ql (Urine sed)Order ed By: Rigo Espinal on 06-12-2024 Mucus Ql (Urine sed) RARE /hpf [facility] Mucus detection in urine sediment by light microscopy RARE /hpf [facility] Neutrophil percentageOrdered By: Rigo Espinal on 06-12-2024 Neutrophils/100 WBC (Bld) 39.6 % Low 47-70 [facility] Neutrophil percentage 39.6 % Low 47-70 [facility] Nitrite Test strip Ql (U)Ord ered By: Rigo Espinal on 06-12-2024 Nitrite Ql (U) Negative Negative [facility] No Panel InformationOrdered By: Rigo Espinal on 06-12-2024 59 U/L High 15-37 [facility] Nucleated red blood cell per centageOrdered By: Rigo Espinal on 06-12-2024 Nucleated red blood cell percentage 0 % 0-5 [facility] Platelet countOrdered By: Anjum Espinal on 06-12-2024 Platelets (Bld) [#/Vol] 230 10*3/uL 150-450 [facility] Platelet count 230 K/mm3 150-450 [facility] Potassium measurementOrdered By: Rigo Espinal on 06-12-2024 Potassium [Moles/Vol] 4.5 mmol/L 3.5-5.1 [facility] Potassium measurement 4.5 mmol/L 3.5-5.1 [facility] Protein Test strip Ql (U)Ord ered By: Rigo Espinal on 06-12-2024 Protein Ql (U) 100 mg/dl High Negative [facility] Urine protein assay by test strip, semi-quantitative 100 mg/dl High Negative [facility] RBC Auto (Bld) [#/Vol]Ordere d By: Rigo Espinal on 06-12-2024 RBC (Bld) [#/Vol] 4.80 10*6/uL 4.2-5.4 [facility] Automated blood erythrocyte count 4.80 M/mm3 4.2-5.4 [facility] Serum anion gap measurementO rdered By: Rigo Espinal on 06-12-2024 Serum anion gap measurement 8 5-15 [facility] Serum globulin measurementOr dered By: Rigo Espinal on 06-12-2024 Globulin (S) [Mass/Vol] 4.6 g/dL High 2.2-4.2 [facility] Serum globulin measurement 4.6 g/dL High 2.2-4.2 [facility] Serum or plasma alanine gagnon otransferase (ALT) measurementOrdered By: Rigo Espinal on 06-12-2024 ALT [Catalytic activity/Vol] 97 U/L High 13-56 [facility] Serum or plasma albumin thi urement (mass/volume)Ordered By: Rigo Espinal on 06-12-2024 Albumin [Mass/Vol] 3.7 g/dL 3.2-5.0 [facility] Serum or plasma alkaline gisselle sphatase measurementOrdered By: Rigo Espinal on 06-12-2024 ALP [Catalytic activity/Vol] 99 U/L 45-117 [facility] Serum or plasma calcium thi urement (mass/volume)Ordered By: Rigo Espinal on 06-12-2024 Calcium [Mass/Vol] 9.3 mg/dL 8.5-10.1 [facility] Serum or plasma creatinine m easurement (mass/volume)Ordered By: Rigo Espinal on 06-12-2024 Creatinine [Mass/Vol] 1.19 mg/dL High 0.55-1.02 [facility] Serum or plasma urea nitroge n measurement (mass/volume)Ordered By: Rigo Espinal on 06-12-2024 Urea nitrogen [Mass/Vol] 17 mg/dL 7-18 [facility] Sodium levelOrdered By: Rigo Espinal on 06-12-2024 Sodium [Moles/Vol] 136 mmol/L 136-145 [facility] Sodium level 136 mmol/L 136-145 [facility] Specific gravity (U) [Rel de nsity]Ordered By: Rigo Espinal on 06-12-2024 Urine specific gravity measurement 1.020 1.002-1.03 0 [facility] Squamous epithelial cells de tection in urine sediment by light microscopyOrdered By: Rigo Espinal on 06-12-2024 Epithelial cells.squamous LM Ql (Urine sed) 10-25 SEEN /hpf 5-10 [facility] Total proteinOrdered By: Veronica Espinal on 06-12-2024 Protein [Mass/Vol] 8.3 g/dL High 6.4-8.2 [facility] Total protein 8.3 g/dL High 6.4-8.2 [facility] Urea nitrogen [Mass/Vol]Orde red By: Rigo Espinal on 06-12-2024 Serum or plasma urea nitrogen measurement (mass/volume) 17 mg/dL 7-18 [facility] Urine blood detectionOrdered By: Rigo Espinal on 06-12-2024 Urine blood detection 250 /ul High Negative [facility] Urine clarityOrdered By: Veronica Espinal on 06-12-2024 Clarity (U) Clear Clear [facility] Urine color determinationOrd ered By: Rigo Espinal on 06-12-2024 Color (U) Yellow Yellow [facility] Urine glucose detectionOrder ed By: Rigo Espinal on 06-12-2024 Glucose Ql (U) 1000 mg/dl High Normal [facility] Urine leukocyte esterase det ection by dipstickOrdered By: Rigo Espinal on 06-12-2024 Leukocyte esterase Test strip Ql (U) 100 /ul High Negative [facility] Urine pHOrdered By: Rigo savage on 06-12-2024 pH (U) 6.0 [pH] 5.0 - 8.0 [facility] Urine sediment bacteria coun t by microscopy (number/high power field)Ordered By: Rigo Espinal on 06-12-2024 Bacteria LM.HPF (Urine sed) [#/Area] 1 /[HPF] None Seen [facility] Urine specific gravity measu rementOrdered By: Rigo Espinal on 06-12-2024 Specific gravity (U) [Rel density] 1.020 1.002-1.03 0 [facility] Urine total bilirubin detect ion by test stripOrdered By: Rigo Espinal on 06-12-2024 Urine total bilirubin detection by test strip Negative Negative [facility] Urine urobilinogen measureme ntOrdered By: Rigo Espinal on 06-12-2024 Urobilinogen Ql (U) Normal mg/dl Normal [facility] Urobilinogen Ql (U)Ordered B y: Rigo Espinal on 06-12-2024 Urine urobilinogen measurement Normal mg/dl Normal [facility] White blood cell (WBC) count Ordered By: Rigo Espinal on 06-12-2024 WBC (Bld) [#/Vol] 9.8 10*3/uL 4.4-11.0 [facility] White blood cell (WBC) count 9.8 K/mm3 4.4-11.0 [facility] White blood cell countOrdere d By: Rigo Espinal on 06-12-2024 White blood cell count 10-25 SEEN /hpf 0-5 [facility] White blood cell count 10-25 SEEN /hpf 5-10 [facility] pH (U)Ordered By: Rigo pham on 06-12-2024 Urine pH 6.0 5.0 - 8.0 [facility] Absolute neutrophil countOrd ered By: Arnold Caban on 06-09-2024 Absolute neutrophil count 3.2 X10^3/uL 2.0-7.7 [facility] Acetone [Mass/Vol]Ordered By : Arnold Caban on 06-09-2024 Serum acetone measurement Negative NEG [facility] Amorphous sediment LM Ql (Ur ine sed)Ordered By: Arnold Caban on 06-09-2024 Amorphous sediment detection in urine sediment by light microscopy 1+ [facility] Bacteria LM.HPF (Urine sed) [#/Area]Ordered By: Arnold Caban on 06-09-2024 Urine sediment bacteria count by microscopy (number/high power field) 3+ /hpf None Seen [facility] Basophil percentageOrdered B y: Arnold Caban on 06-09-2024 Basophil percentage 0.7 % 0-1 [facility] Blood urea nitrogen (BUN)/cr eatinine ratioOrdered By: Arnold Caban on 06-09-2024 Blood urea nitrogen (BUN)/creatinine ratio 16.7 RATIO 10-20 [facility] Calcium [Mass/Vol]Ordered By : Arnold Caban on 06-09-2024 Serum or plasma calcium measurement (mass/volume) 9.0 mg/dL 8.5-10.1 [facility] Carbon dioxide measurementOr dered By: Arnold Caban on 06-09-2024 Carbon dioxide measurement 27.0 mmol/L 21.0-32.0 [facility] Chloride measurementOrdered By: Arnold Caban on 06-09-2024 Chloride measurement 102 mmol/L 98-107 [facility] Clarity (U)Ordered By: Arnold Caban on 06-09-2024 Urine clarity Cloudy Clear [facility] Color (U)Ordered By: Arnold Caban on 06-09-2024 Urine color determination Straw Yellow [facility] Creatinine [Mass/Vol]Ordered By: Arnold Caban on 06-09-2024 Serum or plasma creatinine measurement (mass/volume) 0.90 mg/dL 0.55-1.02 [facility] Eosinophil percentageOrdered By: Arnold Caban on 06-09-2024 Eosinophil percentage 1.5 % 0-5 [facility] Epithelial cells.squamous LM Ql (Urine sed)Ordered By: Arnold Caban on 06-09-2024 Squamous epithelial cells detection in urine sediment by light microscopy 5-10 SEEN /hpf 5-10 [facility] Erythrocyte distribution wid th (RBC) [Entitic vol]Ordered By: Arnold Caban on 06-09-2024 Erythrocyte distribution width standard deviation 43.3 fl 35.1-43.9 [facility] Erythrocyte distribution wid th (RBC) [Ratio]Ordered By: Arnold Caban 06-09-2024 Erythrocyte distribution width ratio 13.2 % 11.6-14.6 [facility] Estimated glomerular filtrat ion rate (GFR) AmericanOrdered By: Arnold Caban on 06-09-2024 Estimated glomerular filtration rate (GFR) 88 mL/min >60 [facility] Estimation of creatinine peg aranceOrdered By: Arnold Caban on 06-09-2024 Estimation of creatinine clearance 89.01 ml/min [facility] Glomerular filtration rate ( GFR) estimationOrdered By: Arnold Caban on 06-09-2024 Glomerular filtration rate (GFR) estimation 73 mL/min >60 [facility] Glucose Ql (U)Ordered By: Андрей Caban on 06-09-2024 Urine glucose detection 1000 mg/dl High Normal [facility] Glucose measurementOrdered B y: Arnold Caban on 06-09-2024 Glucose measurement 334 mg/dL High 74-106 [facility] Glucose measurement at bedsi deOrdered By: Arnold Caban on 06-09-2024 Glucose measurement at bedside 298 mg/dL High 74-106 [facility] Hematocrit Auto (Bld) [Volum e fraction]Ordered By: Arnold Caban on 06-09-2024 Automated blood hematocrit (percentage) 42.7 % 37-47 [facility] Hemoglobin measurementOrdere d By: Arnold Caban on 06-09-2024 Hemoglobin measurement 14.5 g/dL 12.0-15.0 [facility] Immature granulocytes/100 WB C Auto (Bld)Ordered By: Arnold Caban on 06-09-2024 Automated immature granulocyte percentage 0.600 % 0.0-0.9 [facility] Leukocyte esterase Test stri p Ql (U)Ordered By: Arnold Caban on 06-09-2024 Urine leukocyte esterase detection by dipstick 500 /ul High Negative [facility] Lymphocytes Auto (Unsp spec) [#/Vol]Ordered By: Arnold Caban on 06-09-2024 Absolute lymphocyte count 3.81 X10^3/uL 0.83-4.51 [facility] Lymphocytes/100 WBC Auto (Un sp spec)Ordered By: Arnold Caban on 06-09-2024 Automated lymphocyte count as percentage of total leukocytes 47.2 % High 19-41 [facility] MCV (RBC) [Entitic vol]Order ed By: Arnold Caban on 06-09-2024 MCV (mean corpuscular volume) determination 88.6 fL 81-99 [facility] Mean corpuscular hemoglobin (MCH) determinationOrdered By: Arnold Caban on 06-09-2024 Mean corpuscular hemoglobin (MCH) determination 30.1 pg 27.0-32.0 [facility] Mean corpuscular hemoglobin concentration (MCHC) determinationOrdered By: Arnold Caban on 06-09-2024 Mean corpuscular hemoglobin concentration (MCHC) determination 34.0 g/dL 32-36 [facility] [facility] Mean platelet volume determi nationOrdered By: Arnold Caban on 06-09-2024 Mean platelet volume determination 10.4 fl 6.2-12.0 [facility] Microscopic analysis of urin e for red blood cells (RBC)Ordered By: Arnold Caban on 06-09-2024 Microscopic analysis of urine for red blood cells (RBC) 0-5 SEEN /hpf 0-5 [facility] Monocyte percentageOrdered B y: Arnold Caban on 06-09-2024 Monocyte percentage 10.2 % High 0-10 [facility] Mucus LM Ql (Urine sed)Order ed By: Arnold Caban on 06-09-2024 Mucus detection in urine sediment by light microscopy RARE /hpf [facility] Neutrophil percentageOrdered By: Arnold Caban on 06-09-2024 Neutrophil percentage 39.8 % Low 47-70 [facility] Nitrite Test strip Ql (U)Ord ered By: Arnold Caban on 06-09-2024 Urine nitrite test by dipstick Positive High Negative [facility] Nucleated red blood cell per centageOrdered By: Arnold Caban on 06-09-2024 Nucleated red blood cell percentage 0 % 0-5 [facility] Platelet countOrdered By: Андрей Caban on 06-09-2024 Platelet count 187 K/mm3 150-450 [facility] Potassium measurementOrdered By: Arnold Caban on 06-09-2024 Potassium measurement 3.8 mmol/L 3.5-5.1 [facility] Protein Test strip Ql (U)Ord ered By: Arnold Caban on 06-09-2024 Urine protein assay by test strip, semi-quantitative 30 mg/dl High Negative [facility] RBC Auto (Bld) [#/Vol]Ordere d By: Arnold Caban on 06-09-2024 Automated blood erythrocyte count 4.82 M/mm3 4.2-5.4 [facility] Serum anion gap measurementO rdered By: Arnold Caban on 06-09-2024 Serum anion gap measurement 5 5-15 [facility] Sodium levelOrdered By: Arnold Caban on 06-09-2024 Sodium level 134 mmol/L Low 136-145 [facility] Specific gravity (U) [Rel de nsity]Ordered By: Arnold Caban on 06-09-2024 Urine specific gravity measurement 1.015 1.002-1.03 0 [facility] Urea nitrogen [Mass/Vol]Orde red By: Arnold Caban on 06-09-2024 Serum or plasma urea nitrogen measurement (mass/volume) 15 mg/dL 7-18 [facility] Urine blood detectionOrdered By: Arnold Caban on 06-09-2024 Urine blood detection 50 /ul High Negative [facility] Urine cultureOrdered By: Patric Caban on 06-09-2024 Urine culture Serratia marcescens Abnormal [facility] Urine total bilirubin detect ion by test stripOrdered By: Arnold Caban on 06-09-2024 Urine total bilirubin detection by test strip Negative Negative [facility] Urobilinogen Ql (U)Ordered B y: Arnold Caban on 06-09-2024 Urine urobilinogen measurement Normal mg/dl Normal [facility] White blood cell (WBC) count Ordered By: Arnold Caban on 06-09-2024 White blood cell (WBC) count 8.1 K/mm3 4.4-11.0 [facility] White blood cell countOrdere d By: Arnold Caban on 06-09-2024 White blood cell count >100 SEEN /hpf 0-5 [facility] pH (U)Ordered By: Arnold Caban on 06-09-2024 Urine pH 6.0 5.0 - 8.0 [facility] .Auto Diffon 06-02-2024 Basophil, Absolute 0.1 10 3/mcL Normal 0.0-0.2 [facility] Comment on above: Performed By: #### C JENNIFER STUART, KALEB, ADIFF, ANEU, GFR, CMP ####[place] [address] [place], [place] [address] Basophils/100 WBC (Bld) 0.8 % Normal 0.0-2.5 A [facility] Comment on above: Performed By: #### C JENNIFER STUART, KALEB, ADIFF, ANEU, GFR, CMP ####[facility] [place], [place] [address] Eosinophil, Absolute 0.2 10 3/mcL Normal 0.0-0.7 [facility] Comment on above: Performed By: #### C SADE, JENNIFER, KALEB, ADIFF, ANEU, GFR, CMP ####[address] [address] Eosinophils/100 WBC (Bld) 1.9 % Normal 0.0-7.[address] [facility] Comment on above: Performed By: #### C BC, JENNIFER, W, ADIFF, ANEU, GFR, CMP ####[place] [address] [place], [place] [address] Lymphocyte, Absolute 3.8 10 3/mcL Normal 0.9-4.3 [facility] Comment on above: Performed By: #### C BC, LIP, MDW, ADIFF, ANEU, GFR, CMP ####[address] [place], [place] [address] Lymphocytes/100 WBC (Bld) 42.4 % High 20.0-40.[address] [facility] Comment on above: Performed By: #### C BC, JENNIFER, W, ADIFF, ANEU, GFR, CMP ####[address] [address] Monocyte, Absolute 0.9 10 3/mcL Normal 0.1-1.4 [facility] Comment on above: Performed By: #### C BC, JENNIFER, W, ADIFF, ANEU, GFR, CMP ####[address] [address] Monocytes/100 WBC (Bld) 10.0 % Normal 2.0-13.[address] [facility] Comment on above: Performed By: #### C BC, JENNIFER, W, ADIFF, ANEU, GFR, CMP ####[place] [address] [address] Neutrophils/100 WBC (Bld) 44.9 % Low 50.0-75.[address] [facility] Comment on above: Performed By: #### C BC, JENNIFER, MDW, ADIFF, ANEU, GFR, CMP ####[address] [place], [place] [address] .GFRon 06-02-2024 GFR 55 ml/min/1.73sqm Normal [facility] Comment on above: Result Comment: GFR Population [...] mL/min/1.73 square meters Performed By: #### C SADE, JENNIFER, KALEB, ADIFF, ANEU, GFR, CMP ####[place] [address] [place], [place] [address] GFR Non- 45 ml/min/1.73sqm Normal [facility] Comment on above: Result Comment: GFR Population [...] mL/min/1.73 square meters Performed By: #### C SADE, JENNIFER, KALEB, ADIFF, ANEU, GFR, CMP ####[place] [address] [place], [place] [address] .MDWon 06-02-2024 Monocyte Distribution Width 20.75 High 0.00-20.[address] [facility] Comment on above: Result Comment: For adults in ED, MDW>20.0 may be associated with a higher risk of sepsis during the first 12hrs of hospital admission Performed By: #### C SADE, JENNIFER, KALEB, ADIFF, ANEU, GFR, CMP ####[place] [address] [place] [address] .NEUABSon 06-02-2024 Neutrophil, Absolute 4.0 10 3/mcL Normal 2.3-8.1 [facility] Comment on above: Performed By: #### C JENNIFER STUART MDW, ADLAURO, ANEU, GFR, CMP ####[place] [address] [place], [place] [address] .Urinalysis Microscopic (AO) on 06-02-2024 UA Bacteria 2+ /hpf Abnormal [facility] Comment on above: Performed By: #### U AMICAO, UA ####[place] [address] [place] [address] UA RBC 0-5 Abnormal None Seen [facility] Comment on above: Performed By: #### U AMICAO, UA ####[place] [address] [place] [address] UA Squam Epithelial 0-5 Abnormal None Seen [facility] Comment on above: Performed By: #### U AMICAO, UA ####[place] [address] [place] [address] UA WBC 10-15 Abnormal None Seen [facility] Comment on above: Performed By: #### U AMICAO, UA ####[place] [address] [place] [address] CBCon 06-02-2024 Erythrocyte distribution width (RBC) [Ratio] 14.7 % Normal 11.5-15.[address] [facility] Comment on above: Performed By: #### C JENNIFER STUART MDW, BECKY, ANEU, GFR, CMP ####[place] [address] [place] [address] Hematocrit (Bld) [Volume fraction] 45.4 % Normal 34.0-46.[address] [facility] Comment on above: Performed By: #### C JENNIFER STUART MDW, ADLAURO, ANEU, GFR, CMP ####[place] [address] [place] [address] Hgb 15.3 G/dL Normal 12.0-16.[address] [facility] Comment on above: Performed By: #### C SADE, JENNIFER, W, ADIFF, ANEU, GFR, CMP ####[place] [address] [place], [place] [address] MCH (RBC) [Entitic mass] 30.7 pg Normal 27.0-33.[address] [facility] Comment on above: Performed By: #### C BC, JENNIFER, W, ADIFF, ANEU, GFR, CMP ####[place] [address] [place], [place] [address] MCHC 33.6 G/dL Normal 32.0-36.[address] [facility] Comment on above: Performed By: #### C SADE, JENNIFER, W, ADIFF, ANEU, GFR, CMP ####[place] [address] [place], [place] [address] MCV (RBC) [Entitic vol] 91.3 fL Normal 80.0-99.[address] [facility] Comment on above: Performed By: #### C SADE, JENNIFER, W, ADIFF, ANEU, GFR, CMP ####[place] [address] [place], [place] [address] Platelet 215 10 3/mcL Normal 150-[address] [facility] Comment on above: Performed By: #### C SADE, JENNIFER, W, ADIFF, ANEU, GFR, CMP ####[place] [address] [place], [place] [address] Platelet mean volume (Bld) [Entitic vol] 8.6 fL Normal 6.6-10.[address] [facility] Comment on above: Performed By: #### C BC, JENNIFER, W, ADIFF, ANEU, GFR, CMP ####[place] [address] [place], [place] [address] RBC 4.98 10 6/mcL Normal 4.10-5.[address] [facility] Comment on above: Performed By: #### C BC, JENNIFER, MDW, ADIFF, ANEU, GFR, CMP ####[address] [place], [place] [address] WBC 8.9 10 3/mcL Normal 4.5-10.[address] [facility] Comment on above: Performed By: #### C SADE, JENNIFER, KALEB, ADIFF, ANEU, GFR, CMP ####[place] [address] [place] [id number] CMPon 06-02-2024 Albumin Level 3.8 G/dL Normal 3.5-5.[address] [facility] Comment on above: Performed By: #### C SADE, JENNIFER, KALEB, ADIFF, ANEU, GFR, CMP ####[place] [address] [place] [id number] Albumin/Globulin [Mass ratio] 0.9 {ratio} Low 1.1-2.[address] [facility] Comment on above: Performed By: #### C SADE, JENNIFER, KALEB, ADIFF, ANEU, GFR, CMP ####[place] [address] [place] [phone] ALP [Catalytic activity/Vol] 126 U/L Normal 40-[address] [facility] Comment on above: Performed By: #### C SADE, JENNIFER, KALEB, ADIFF, ANEU, GFR, CMP ####[place] [address] [place] [phone] ALT [Catalytic activity/Vol] 67 U/L High 14-[address] [facility] Comment on above: Performed By: #### C SADE, JENNIFER, KALEB, ADIFF, ANEU, GFR, CMP ####[place] [address] [place] [phone] AST [Catalytic activity/Vol] 32 U/L Normal 10-[address] [facility] Comment on above: Performed By: #### C SADE, JENNIFER, W, ADIFF, ANEU, GFR, CMP ####[place] [address] [place] [phone] Bili Total 0.2 mg/dL Normal 0.2-1.[address] [facility] Comment on above: Result Comment: Use of this assay is not recommended for patients undergoing treatment with eltrombopag due to the potential for falsely elevated results. Performed By: #### C BC, JENNIFER, KALEB, ADIFF, ANEU, GFR, CMP ####[place] [address] [place], [place] [address] BUN/Creatinine Ratio 15 ratio Normal 7-27 [facility] Comment on above: Performed By: #### C JENNIFER STUART MDW, ADIFF, ANEU, GFR, CMP ####[place] [address] [place], [place] [address] Calcium [Mass/Vol] 9.6 mg/dL Normal 8.4-10.2 [facility] Comment on above: Performed By: #### C JENNIFER STUART MDW, ADIFF, ANEU, GFR, CMP ####[place] [address] [place], [place] [address] Chloride [Moles/Vol] 98 mmol/L Normal 98-107 [facility] Comment on above: Performed By: #### C JENNIFER STUART MDW, ADIFF, ANEU, GFR, CMP ####[place] [address] [place], [place] [address] CO2 [Moles/Vol] 27 mmol/L Normal 22-[address] [facility] Comment on above: Performed By: #### C JENNIFER STUART MDW, ADIFF, ANEU, GFR, CMP ####[place] [address] [place], [place] [address] Creatinine [Mass/Vol] 1.29 mg/dL High 0.55-1.02 [facility] Comment on above: Result Comment: Test ing performed on Siemens Dimension EXL analyzer using a modified kinetic Landon technique. Performed By: #### C JENNIFER STUART MDW, ADIFF, ANEU, GFR, CMP ####[place] [address] [place], [place] [address] Electrolyte Balance 9.0 mEq/L Normal 4.0-15.0 [facility] Comment on above: Performed By: #### C JENNIFER STUART MDW, ADIFF, ANEU, GFR, CMP ####[place] [address] [place], [place] [address] Globulin 4.2 G/dL Normal [facility] Comment on above: Performed By: #### C SADE, KALEB RODRIGUEZ, ADIFF, ANEU, GFR, CMP ####[address] [address] Glucose [Mass/Vol] 511 mg/dL Critically abnormal 70-[address] [facility] Comment on above: Performed By: #### C BC, LIP, MDW, ADIFF, ANEU, GFR, CMP ####[address] [place], [place] [address] Potassium [Moles/Vol] 4.5 mmol/L Normal 3.5-5.1 [facility] Comment on above: Performed By: #### C BC, LIP, MDW, ADIFF, ANEU, GFR, CMP ####[address] [place], [place] [address] Sodium [Moles/Vol] 134 mmol/L Low 136-145 [facility] Comment on above: Performed By: #### C BC, LIP, MDW, ADIFF, ANEU, GFR, CMP ####[address] [place], [place] [address] Total Protein 8.0 G/dL Normal 6.4-8.[address] [facility] Comment on above: Performed By: #### C BC, LIP, MDW, ADIFF, ANEU, GFR, CMP ####[address] [place], [place] [address] Urea nitrogen [Mass/Vol] 19 mg/dL High 7-[address] [facility] Comment on above: Performed By: #### C BC, LIP, MDW, ADIFF, ANEU, GFR, CMP ####[address] [address] [address] ABD/PELVIS W/ IV CONTRAST ONLYon 06-02-2024 [...] 06/02/2024 2:08:26 AM Ordering Provider: SOLEDAD VARGAS Normal [facility] LABORATORYOrdered By: Tania Humphries on 06-02-2024 Glucose [Mass/Vol] 294 mg/dL High 70 - 110 mg/dL [facility] LABORATORYOrdered By: Leidy Waddell on 06-02-2024 [...] 06-02-2024 Lipase Level 58 U/L Normal 16-[address] [facility] Comment on above: Performed By: #### C BC, JENNIFER, KALEB, ADLAURO, ANEU, GFR, CMP ####[facility] [place], [place] [address] No Panel Informationon 06-02 Microscopic examination of blood, culture Culture has been received in lab and is no growth to date. Routine cultures are held for 5 days. [facility] PREGUon 06-02-2024 HCG ( test) Ql (U) Negative Normal [facility] Comment on above: Performed By: #### P REGU ####[place] [address] [place], [place] [address] test (u) int Not detected Invalid Interpretation Code [facility] Comment on above: Performed By: #### P REGU ####[place] [address] [place], [place] [address] UAon 06-02-2024 Color (U) Yellow Normal [facility] Comment on above: Performed By: #### U AMICAO, UA ####[address] [place] [phone] Glucose (U) [Mass/Vol] 500 mg/dL Abnormal Negative [facility] Comment on above: Performed By: #### U AMICAO, UA ####[place] [address] [place] [address] Ketones Ql (U) Negative Normal Negative [facility] Comment on above: Performed By: #### U AMICAO, UA ####[address] [place] [address] UA Appear Clear Normal Clear [facility] Comment on above: Performed By: #### U AMICAO, UA ####[address] [place], [place] [address] UA Blood Trace Abnormal Negative [facility] Comment on above: Performed By: #### U AMICAO, UA ####[place] [address] [place], [place] [address] UA Leuk Est Small Abnormal Negative [facility] Comment on above: Performed By: #### U AMICAO, UA ####[address] [place], [place] [address] UA Nitrite Positive Abnormal Negative [facility] Comment on above: Performed By: #### U AMICAO, UA ####[place] [address] [place] [id number] UA pH 6.0 Normal 5.0 - 8.[address] [facility] Comment on above: Performed By: #### U AMICAO, UA ####[place] [address] [place], [place] [address] UA Protein 30 mg/dL Normal Negative [facility] Comment on above: Performed By: #### U AMICAO, UA ####[place] [address] [place], [place] [address] UA Spec Grav 1.015 Normal 1.015-1.02 [address] [facility] Comment on above: Performed By: #### U AMICAO, UA ####[place] [address] [place], [place] [address] UA Specimen Type Cook Catheter Normal [facility] Comment on above: Performed By: #### U AMICAO, UA ####[place] [address] [place], [place] [address] UA Urobilinogen 0.2 E.U./dL Normal 0.2-1.[address] [facility] Comment on above: Performed By: #### U AMICAO, UA ####[place] [address] [place], [place] [address] Urobilinogen (U) [Mass/Vol] Negative Normal Negative [facility] Comment on above: Performed By: #### U AMICAO, UA ####[place] [address] [place], [place] [address] LABORATORYOrdered By: SYSTEM SYSTEM on 04-07-2024 Albumin [...] Code None Seen AO Auto Urine SS EGD Study observation Pepper irene 03-25-2024 [facility] Gastrointestinal Endoscopy Patient Name: Debby Bailon [...] Josue MD (Referring MD), Will Brannon (Referring ) Medicines: Fentanyl 100 micrograms IV, Midazolam 5 [...] be scheduled. Procedure Code(s): --- Professional --- 72065, Esophagogastroduodenosco py, flexible, transoral; with biopsy, single or multiple G0500, Moderate sedation services provided by the same physician or other qualified health clinical care coordinator performing a gastrointestinal endoscopic service that sedation supports, requiring the (more content not included)... [employer]ATION [facility] Radiology Study observation (narrative) [facility] LABORATORYOrdered By: Rebecca Farrell on 02-25-2024 Appearance [...] Urine SS LABORATORYOrdered By: SYSTEM SYSTEM on 02-03-2024 Albumin [...] Workflow SS LABORATORYOrdered By: Rebecca Farrell on 02-02-2024 Appearance [...] 11-28-2023 Misc. Send Out See Comments Normal [facility] ([place]) Comment on above: Order Comment: MPNP Result Comment: Comp lete reference lab report scanned to EMR. Performed By: #### M ISC ####[place] [address] PNHPNLon 11-27-2023 P[facility] Granulocyte Clone SEE COMMEN [facility]ly [facility] ([place]) Comment on above: Result Comment: Comp lete reference lab report scanned to EMR. Performed By: #### G FR, MORPH, CMP, PNHPNL, DIFF, A1C, CBC ####[place] [address] PNH Panel by FCM Interpretation SEE COMMENT [facility] ([place]) Comment on above: Result Comment: Comp lete reference lab report scanned to EMR. Performed By: #### G FR, MORPH, CMP, PNHPNL, DIFF, A1C, CBC ####[place] [address] PNH Panel by FCM Reviewed by SEE COMMENT [facility] ([place]) Comment on above: Result Comment: Comp lete reference lab report scanned to EMR. Performed By: #### G FR, MORPH, CMP, PNHPNL, DIFF, A1C, CBC ####[place] [address] CBLon 11-23-2023 CBL [facility] ([place]) .KPEQ2YSWig 11-22-2023 Factor V Leiden Factor V Leiden PCR [facility] ([place]) Comment on above: Result Comment: Violetta pathak Accession Number: [id number]:NEGATIVEInterpretation:The DNA sample is negative for the c.1601G>A variant (legacy ajmdQ777T) in the Factor V (F5) gene. This [...] patient's blood specimen is evaluatedfor the c.1601G>A (p.Vpt475Zpb;g.[id number]) variant of the F5 gene[RefSeq NM_[id number]; GRCh38/hg38] [...] was developed and its performance characteristics determinedby [facility] [place] ([facility]). It has not been cleared or approved bythe FDA. [facility] is regulated under CLIA as certified to perform high-complexity testing. This test is used for clinical purposes. It shouldnot be regarded as investigational or for research.Testing [place] [address]. CLIA Number: [id number]:1) Mary R, Jose G, Marcos P. The genetics of venous thromboembolism.A meta-analysis involving approximately 120,000 cases and 180,000controls. Thromb Haemost 2009;102(2):360-70.2) Inherited Thrombophilias in . ACOG PracticeBulletin.No.197.[place] [employer] Obstetricians and Gynecologists.Obstet Gynecol 2018;132:e18-34.3) [place]. Factor V Leiden Thrombophilia. GenetMed.2011;13(1):1-16.4) Pharmacogenomics summary [email or web address] reviewed by Alexa Spear MD, PhDPerformed By:MARIELA CEDEÑO [id number] Director: Seth Whalen III, M.D.CLIA#: [id number] Performed By: #### F [facility] ####[place] [address] .CCLPTGENon 11-22-2023 PT Gene Mut Prothrombin Gene Mutation Normal [facility] ([place]) Comment on above: Result Comment: Violetta pathak Accession Number: [id number]:NORMALInterpretation:The DNA sample is negative for the c.*97G>A variant (legacy pdpw77592Z>A) in the 3' untranslated region of the Factor II (F2) gene.This result is not associated with an increased risk of thromboembolicdisease. Thromboembolic disease is a multifactorial disorder and othercauses are not excluded by this result.Methodology:Isolated Genomic DNA from the patient's blood specimen is evaluatedfor the c*97G>A (g.42746097) variant of the F2 gene [RefSeqNM_[id number];GRCh38/hg38] by multiplex polymerase chain reaction(PCR) followed by melting curve analysis.Limitations:This assay is designed to detect the c.*97G>A (55526T>A) variant inthe F2 gene. Uncommon variants or single nucleotide polymorphisms mayaffect binding of probes and may rarely result in false negative,false positive or indeterminate results. This assay does not detectother disease-associated rare variants in F2 or other causes ofthromboembolic disease.Disclaimer:This test was developed and its performance characteristics determinedby [facility] [place] ([facility]). It has not been cleared or approved bythe FDA. [facility] is regulated under CLIA as certified to perform high-complexity testing. This test is used for clinical purposes. It shouldnot be regarded as investigational or for research.Testing and interpretation performed at [facility], [address] [place], [place] [address]. CLIA Number: [id number]:1) Inheritied Thrombophilias in . ACOG Practice Bulletin. No.197. [place] [employer]etricians [employer] Gynec[employer]. ObseteGynecol 2018;132:e18-34.2) Davey SR, Yasmin FR, Edmund PH, and Yu MUHAMMAD. A commongenetic variation in the 3'-untranslated region of the prothrombingene is associated with elevated plasma prothrombin levels and anincrease in venous thrombosis. Blood 88:3698-703, 1995.3) Enrique To, Justin Cruz, Fito C, Mian Moran. Uudqfnxrhzy81515F>T: 16 new cases, association with the 82715Y>G polymorphism,and literature review. J Thromb Haemost. 2009;9:1585-7.As reviewed by Alexa Spear MD, PhDPerformed By:[facility] [id number] Director: Seth GIMENEZIA#: [id number] Performed By: #### P TGEN ####[place] [address] .GFRon 11-22-2023 GFR >60 Normal On license of [facility] ([place]) Comment on above: Result Comment: GFR Population [...] #### D IFF, MORPH, BMP, GFR, CBC ####[place] [address] GFR Non- >60 Normal [facility] ([place]) Comment on above: Result Comment: GFR Population [...] #### D IFF, MORPH, BMP, GFR, CBC ####[place] [address] .Manual Diffon 11-22-2023 Bands 2.0 % Normal 0.0-5.0 [facility] ([place]) Comment on above: Performed By: #### D IFF, MORPH, BMP, GFR, CBC ####[place] [address] Basophil %, Manual 0.0 % Normal 0.0-2.5 [facility] ([place]) Comment on above: Performed By: #### D IFF, MORPH, BMP, GFR, CBC ####[place] [address] Basophil, Abs Manual 0.0 10 3/mcL Normal 0.0-0.3 [facility] ([place]) Comment on above: Performed By: #### D IFF, MORPH, BMP, GFR, CBC ####[place] [address] Eosinophil %, Manual 0.0 % Normal 0.0-6.0 On license of [facility] ([place]) Comment on above: Performed By: #### D IFF, MORPH, BMP, GFR, CBC ####[place] [address] Eosinophil, Abs Manual 0.0 10 3/mcL Normal 0.0-0.7 [facility] ([place]) Comment on above: Performed By: #### D IFF, MORPH, BMP, GFR, CBC ####[place] [address] Lymphocyte %, Manual 67.0 % High 20.0-40.0 On license of [facility] ([place]) Comment on above: Performed By: #### D IFF, MORPH, BMP, GFR, CBC ####[place] [address] Lymphocyte, Abs Manual 7.4 10 3/mcL High 0.9-4.3 [facility] ([place]) Comment on above: Performed By: #### D IFF, MORPH, BMP, GFR, CBC ####[address] [address] Monocyte %, Manual 7.0 % Normal 2.0-13.0 [facility] ([place]) Comment on above: Performed By: #### D IFF, MORPH, BMP, GFR, CBC ####[address] [address] Monocyte, Abs Manual 0.8 10 3/mcL Normal 0.1-1.4 [facility] ([place]) Comment on above: Performed By: #### D IFF, MORPH, BMP, GFR, CBC ####[place] [address] Neutrophil %, Manual 24.0 % Low 50.0-75.0 On license of [facility] ([place]) Comment on above: Performed By: #### D IFF, MORPH, BMP, GFR, CBC ####[address] [address] Neutrophil, Abs Manual 2.8 10 3/mcL Normal 2.3-8.1 [facility] ([place] Comment on above: Performed By: #### D IFF, MORPH, BMP, GFR, CBC ####[place] [address] Nucleated RBC 0.0 /100 WBC Normal [facility] ([place] Comment on above: Performed By: #### D IFF, MORPH, BMP, GFR, CBC ####[address] [address] .Morphon 11-22-2023 Anisocytosis Ql (Bld) 1+ Normal [facility] ([place]) Comment on above: Performed By: #### D IFF, MORPH, BMP, GFR, CBC ####[address] [address] Platelet Estimate Normal Normal [facility] ([place] Comment on above: Performed By: #### D IFF, MORPH, BMP, GFR, CBC ####[place] [address] Smudge Cells 1+ Normal [facility] ([place] Comment on above: Performed By: #### D IFF, MORPH, BMP, GFR, CBC ####[place] [address] BMPon 11-22-2023 BUN/Creatinine Ratio 11.6 ratio Normal 10.0-22.0 On license of [facility] ([place]) Comment on above: Performed By: #### D IFF, MORPH, BMP, GFR, CBC ####[place] [address] Calcium [Mass/Vol] 8.2 mg/dL Low 8.7-10.4 [facility] ([place] Comment on above: Performed By: #### D IFF, MORPH, BMP, GFR, CBC ####[place] [address] Chloride [Moles/Vol] 104 mmol/L Normal 98-110 On license of [facility] ([place] Comment on above: Performed By: #### D IFF, MORPH, BMP, GFR, CBC ####[place] [address] CO2 [Moles/Vol] 26 mmol/L Normal 22-32 [facility] ([place] Comment on above: Performed By: #### D IFF, MORPH, BMP, GFR, CBC ####[place] [address] Creatinine [Mass/Vol] 0.69 mg/dL Normal 0.50-1.20 [facility] ([place] Comment on above: Performed By: #### D IFF, MORPH, BMP, GFR, CBC ####[place] [address] Electrolyte Balance 10.0 mEq/L Normal 4.0-15.0 [facility] ([place] Comment on above: Performed By: #### D IFF, MORPH, BMP, GFR, CBC ####[place] [address] Glucose [Mass/Vol] 105 mg/dL Normal 70-110 [facility] ([place] Comment on above: Performed By: #### D IFF, MORPH, BMP, GFR, CBC ####[place] [address] Potassium [Moles/Vol] 3.7 mmol/L Normal 3.5-5.0 [facility] ([place] Comment on above: Performed By: #### D IFF, MORPH, BMP, GFR, CBC ####[place] [address] Sodium [Moles/Vol] 140 mmol/L Normal 136-145 [facility] ([place] Comment on above: Performed By: #### D IFF, MORPH, BMP, GFR, CBC ####[place] [address] Urea nitrogen [Mass/Vol] 8.0 mg/dL Normal 8.0-22.0 [facility] ([place] Comment on above: Performed By: #### D IFF, MORPH, BMP, GFR, CBC ####[place] [address] CBCon 11-22-2023 Erythrocyte distribution width (RBC) [Ratio] 15.9 % High 11.5-15.5 [facility] ([place] Comment on above: Performed By: #### D IFF, MORPH, BMP, GFR, CBC ####[place] [address] Hematocrit (Bld) [Volume fraction] 35.5 % Normal 34.0-46.0 [facility] ([place] Comment on above: Performed By: #### D IFF, MORPH, BMP, GFR, CBC ####[place] [address] Hgb 12.0 G/dL Normal 12.0-16.0 [facility] ([place] Comment on above: Performed By: #### D IFF, MORPH, BMP, GFR, CBC ####[place] [address] MCH (RBC) [Entitic mass] 30.6 pg Normal 27.0-33.0 [facility] ([place] Comment on above: Performed By: #### D IFF, MORPH, BMP, GFR, CBC ####[address] [address] MCHC 33.8 G/dL Normal 32.0-36.0 [facility] ([place] Comment on above: Performed By: #### D IFF, MORPH, BMP, GFR, CBC ####[address] [address] MCV (RBC) [Entitic vol] 90.7 fL Normal 80.0-99.0 A [facility] ([place]) Comment on above: Performed By: #### D IFF, MORPH, BMP, GFR, CBC ####[place] [address] Platelet 158 10 3/mcL Normal 150-450 [facility] ([place] Comment on above: Performed By: #### D IFF, MORPH, BMP, GFR, CBC ####[place] [address] Platelet mean volume (Bld) [Entitic vol] 8.7 fL Normal 6.6-10.5 [facility] ([place] Comment on above: Performed By: #### D IFF, MORPH, BMP, GFR, CBC ####[place] [address] RBC 3.92 10 6/mcL Low 4.10-5.30 [facility] ([place] Comment on above: Performed By: #### D IFF, MORPH, BMP, GFR, CBC ####[place] [address] WBC 11.0 10 3/mcL High 4.5-10.8 [facility] ([place] Comment on above: Performed By: #### D IFF, MORPH, BMP, GFR, CBC ####[address] [address] LABORATORYOrdered By: Leidy Rubalcava on 11-22-2023 Blood Glucose Testing Reason Routine (11/22/23 11:18 AM) [facility] Glucose [Mass/Vol] 173 mg/dL High 70 - 110 mg/dL [facility] Blood Glucose Testing Reason Routine (11/22/23 7:18 AM) [facility] Glucose [Mass/Vol] 105 mg/dL Normal 70 - 110 mg/dL [facility] LABORATORYOrdered By: SYSTEM SYSTEM on 11-22-2023 Anisocytosis Ql (Bld) 1+ *NA* (11/22/23 5:33 AM) Invalid Interpretation Code Workflow SS Band form neutrophils/100 WBC (Bld) 2.0 % Normal 0.0 - 5.0 % Workflow SS Basophils (Bld) [#/Vol] 0.0 103/mcL Normal 0.0 - 0.3 10^3/mcL Workflow SS Basophils/100 WBC (Bld) 0.0 % Normal 0.0 - 2.5 % Workflow SS Calcium [Mass/Vol] 8.2 mg/dL Low [...] (S/P/Bld) [Vol rate/Area] ml/min/1.73sqm Invalid Interpretation Code Chemistry S Comment on above: Interpretive Data: [...] (S/P/Bld) [Vol rate/Area] ml/min/1.73sqm Invalid Interpretation Code Chemistry S Comment on above: Interpretive Data: [...] 105 mg/dL Normal 70 - 110 mg/dL ADM SS Hematocrit (Bld) [Volume fraction] 35.5 % Normal 34.0 - 46.0 % AH Workflow SS Hemoglobin (Bld) [Mass/Vol] 12.0 G/dL Normal 12.0 - 16.0 G/dL Workflow SS Lymphocytes (Bld) [#/Vol] 7.4 103/mcL High 0.9 - 4.3 10^3/mcL Workflow SS Lymphocytes/100 WBC (Bld) 67.0 % High 20.0 - 40.0 % Workflow SS MCH (RBC) [Entitic mass] 30.6 pg Normal 27.0 - 33.0 pg AH Workflow SS MCHC 33.8 G/dL Normal 32.0 - 36.0 G/dL Workflow SS MCV (RBC) [Entitic vol] 90.7 fL Normal 80.0 - 99.0 fL Workflow SS Monocytes (Bld) [#/Vol] 0.8 103/mcL [...] SS .GFRon 11-21-2023 GFR Non- >60 Normal [facility] ([place]) Comment on above: Result Comment: GFR Population [...] B MP, DIFF, CBC, MORPH, DIMER, GFR ####[address] [address] GFR >60 Normal On license of [facility] ([place]) Comment on above: Result Comment: GFR Population [...] B MP, DIFF, CBC, MORPH, DIMER, GFR ####[place] [address] .Manual Diffon 11-21-2023 Atypical Lymphs 11.0 % High 0.0-5.0 [facility] ([place] Comment on above: Performed By: #### B MP, DIFF, CBC, MORPH, DIMER, GFR ####[place] [address] Bands 1.0 % Normal 0.0-5.0 [facility] ([place] Comment on above: Performed By: #### B MP, DIFF, CBC, MORPH, DIMER, GFR ####[place] [address] Basophil %, Manual 0.0 % Normal 0.0-2.5 [facility] ([place] Comment on above: Performed By: #### B MP, DIFF, CBC, MORPH, DIMER, GFR ####[place] [address] Basophil, Abs Manual 0.0 10 3/mcL Normal 0.0-0.3 [facility] ([place]) Comment on above: Performed By: #### B MP, DIFF, CBC, MORPH, DIMER, GFR ####[address] [address] Eosinophil %, Manual 1.0 % Normal 0.0-6.0 On license of [facility] ([place]) Comment on above: Performed By: #### B MP, DIFF, CBC, MORPH, DIMER, GFR ####[address] [address] Eosinophil, Abs Manual 0.1 10 3/mcL Normal 0.0-0.7 [facility] ([place] Comment on above: Performed By: #### B MP, DIFF, CBC, MORPH, DIMER, GFR ####[address] [address] Lymphocyte %, Manual 49.0 % High 20.0-40.0 On license of [facility] ([place] Comment on above: Performed By: #### B MP, DIFF, CBC, MORPH, DIMER, GFR ####[address] [address] Lymphocyte, Abs Manual 4.8 10 3/mcL High 0.9-4.3 [facility] ([place] Comment on above: Performed By: #### B MP, DIFF, CBC, MORPH, DIMER, GFR ####[address] [address] Monocyte %, Manual 16.0 % High 2.0-13.0 [facility] ([place] Comment on above: Performed By: #### B MP, DIFF, CBC, MORPH, DIMER, GFR ####[address] [address] Monocyte, Abs Manual 1.5 10 3/mcL High 0.1-1.4 [facility] ([place]) Comment on above: Performed By: #### B MP, DIFF, CBC, MORPH, DIMER, GFR ####[address] [address] Neutrophil %, Manual 22.0 % Low 50.0-75.0 On license of [facility] ([place] Comment on above: Performed By: #### B MP, DIFF, CBC, MORPH, DIMER, GFR ####[address] [address] Neutrophil, Abs Manual 2.2 10 3/mcL Low 2.3-8.1 [facility] ([place] Comment on above: Performed By: #### B MP, DIFF, CBC, MORPH, DIMER, GFR ####[place] [address] Nucleated RBC 0.0 /100 WBC Normal [facility] ([place] Comment on above: Performed By: #### B MP, DIFF, CBC, MORPH, DIMER, GFR ####[address] [address] .Morphon 11-21-2023 Anisocytosis Ql (Bld) 1+ Normal [facility] ([place] Comment on above: Performed By: #### B MP, DIFF, CBC, MORPH, DIMER, GFR ####[place] [address] Platelet Estimate Normal Normal [facility] ([place] Comment on above: Performed By: #### B MP, DIFF, CBC, MORPH, DIMER, GFR ####[place] [address] BMPon 11-21-2023 BUN/Creatinine Ratio 9.7 ratio Low 10.0-22.0 On license of [facility] ([place] Comment on above: Performed By: #### B MP, DIFF, CBC, MORPH, DIMER, GFR ####[place] [address] Calcium [Mass/Vol] 8.2 mg/dL Low 8.7-10.4 [facility] ([place] Comment on above: Performed By: #### B MP, DIFF, CBC, MORPH, DIMER, GFR ####[place] [address] Chloride [Moles/Vol] 107 mmol/L Normal 98-110 On license of [facility] ([place] Comment on above: Performed By: #### B MP, DIFF, CBC, MORPH, DIMER, GFR ####[place] [address] CO2 [Moles/Vol] 25 mmol/L Normal 22-32 [facility] ([place] Comment on above: Performed By: #### B MP, DIFF, CBC, MORPH, DIMER, GFR ####[place] [address] Creatinine [Mass/Vol] 0.72 mg/dL Normal 0.50-1.20 [facility] ([place] Comment on above: Performed By: #### B MP, DIFF, CBC, MORPH, DIMER, GFR ####[place] [address] Electrolyte Balance 8.0 mEq/L Normal 4.0-15.0 [facility] ([place] Comment on above: Performed By: #### B MP, DIFF, CBC, MORPH, DIMER, GFR ####[place] [address] Glucose [Mass/Vol] 103 mg/dL Normal 70-110 [facility] ([place] Comment on above: Performed By: #### B MP, DIFF, CBC, MORPH, DIMER, GFR ####[place] [address] Potassium [Moles/Vol] 3.9 mmol/L Normal 3.5-5.0 [facility] ([place] Comment on above: Performed By: #### B MP, DIFF, CBC, MORPH, DIMER, GFR ####[place] [address] Sodium [Moles/Vol] 140 mmol/L Normal 136-145 [facility] ([place] Comment on above: Performed By: #### B MP, DIFF, CBC, MORPH, DIMER, GFR ####[place] [address] Urea nitrogen [Mass/Vol] 7.0 mg/dL Low 8.0-22.0 [facility] ([place] Comment on above: Performed By: #### B MP, DIFF, CBC, MORPH, DIMER, GFR ####[place] [address] CBCon 11-21-2023 Erythrocyte distribution width (RBC) [Ratio] 15.7 % High 11.5-15.5 [facility] ([place] Comment on above: Performed By: #### B MP, DIFF, CBC, MORPH, DIMER, GFR ####[place] [address] Hematocrit (Bld) [Volume fraction] 34.1 % Normal 34.0-46.0 [facility] ([place] Comment on above: Performed By: #### B MP, DIFF, CBC, MORPH, DIMER, GFR ####[place] [address] Hgb 11.5 G/dL Low 12.0-16.0 [facility] ([place] Comment on above: Performed By: #### B MP, DIFF, CBC, MORPH, DIMER, GFR ####[place] [address] MCH (RBC) [Entitic mass] 30.3 pg Normal 27.0-33.0 [facility] ([place] Comment on above: Performed By: #### B MP, DIFF, CBC, MORPH, DIMER, GFR ####[place] [address] MCHC 33.8 G/dL Normal 32.0-36.0 [facility] ([place] Comment on above: Performed By: #### B MP, DIFF, CBC, MORPH, DIMER, GFR ####[place] [address] MCV (RBC) [Entitic vol] 89.9 fL Normal 80.0-99.0 A [facility] ([place] Comment on above: Performed By: #### B MP, DIFF, CBC, MORPH, DIMER, GFR ####[place] [address] Platelet 165 10 3/mcL Normal 150-450 [facility] ([place] Comment on above: Performed By: #### B MP, DIFF, CBC, MORPH, DIMER, GFR ####[place] [address] Platelet mean volume (Bld) [Entitic vol] 8.1 fL Normal 6.6-10.5 [facility] ([place] Comment on above: Performed By: #### B MP, DIFF, CBC, MORPH, DIMER, GFR ####[place] [address] RBC 3.80 10 6/mcL Low 4.10-5.30 [facility] ([place] Comment on above: Performed By: #### B MP, DIFF, CBC, MORPH, DIMER, GFR ####[place] [address] WBC 9.7 10 3/mcL Normal 4.5-10.8 [facility] ([place] Comment on above: Performed By: #### B MP, DIFF, CBC, MORPH, DIMER, GFR ####[place] [address] CDCONFon 11-21-2023 CDCONF Normal [facility] ([place]) CDIFPCRon 11-21-2023 Clostridium difficile PCR Positive Abnormal Negative [facility] ([place]) Comment on above: Result Comment: [place] [id number] Performed By: #### C DIFPCR ####[place] [address] Clostridium difficile PCR Int [facility] ([place]) Comment on above: Result Comment: tcdB gene [...] notified.See Below Performed By: #### C DIFPCR ####[place] [address] CURon 11-21-2023 CUR Normal [facility] ([place]) DIMERon 11-21-2023 D-Dimer 3711 ng/mL D-DU High 0-230 [facility] ([place]) Comment on above: Result Comment: Resu lts [...] B MP, DIFF, CBC, MORPH, DIMER, GFR ####[facility] [place] [address] LABORATORYOrdered By: Adelita Carey on 11-21-2023 Blood Glucose Testing Reason Routine (11/21/23 11:10 PM) [facility] Glucose [Mass/Vol] 130 mg/dL High 70 - 110 mg/dL [facility] LABORATORYOrdered By: Seth Marsh on 11-21-2023 Adenovirus [...] SS Comment on above: Result Comment: The shoe lining fitter of the Stool GI PCR panel has [...] (11/21/23 8:04 PM) Invalid Interpretation Code Negative AH Auto Viro/Sero SS Comment on above: Result Comment: [place] [id number] Clostridium difficile PCR Int tcdB gene DNA [...] control will be notified. Invalid Interpretation Code AH Auto Viro/Sero SS LABORATORYOrdered By: SYSTEM SYSTEM on 11-21-2023 Anisocytosis Ql (Bld) 1+ *NA* (11/21/23 4:18 AM) Invalid Interpretation Code Workflow SS Band form neutrophils/100 WBC (Bld) 1.0 % Normal 0.0 - 5.0 % Workflow SS Basophils (Bld) [#/Vol] 0.0 103/mcL Normal 0.0 - 0.3 10^3/mcL Workflow SS Basophils/100 WBC (Bld) 0.0 % Normal 0.0 - 2.5 % Workflow SS Calcium [Mass/Vol] 8.2 mg/dL Low [...] (S/P/Bld) [Vol rate/Area] ml/min/1.73sqm Invalid Interpretation Code Chemistry S Comment on above: Interpretive Data: [...] (S/P/Bld) [Vol rate/Area] ml/min/1.73sqm Invalid Interpretation Code Chemistry S Comment on above: Interpretive Data: [...] 103 mg/dL Normal 70 - 110 mg/dL ADM SS Hematocrit (Bld) [Volume fraction] 34.1 [...] RBC 0.0 /100 WBC Invalid Interpretation Code Workflow SS Platelet mean volume (Bld) [Entitic vol] 8.1 fL Normal 6.6 - 10.5 fL Workflow SS Platelets (Bld) [#/Vol] 165 103/mcL Normal 150 - 450 10^3/mcL Workflow SS Platelets LM Ql (Bld) Normal *NA* (11/21/23 4:18 AM) Invalid Interpretation Code Workflow SS Potassium [Moles/Vol] 3.9 mmol/L Normal 3.5 - 5.0 mEq/L ADM SS RBC (Bld) [#/Vol] 3.80 106/mcL Low 4.10 - 5.30 10^6/mcL Workflow SS Sodium [Moles/Vol] 140 mmol/L Normal 136 - 145 mEq/L ADM SS Urea nitrogen [Mass/Vol] 7.0 mg/dL Low 8.0 - 22.0 mg/dL ADM SS Urea nitrogen/Creatinine [Mass ratio] 9.7 ratio Low 10.0 - 22.0 ratio ADM SS Variant lymphocytes/100 WBC (Bld) 11.0 % High 0.0 - 5.0 % Workflow SS WBC (Bld) [#/Vol] 9.7 103/mcL Normal 4.5 - 10.8 10^3/mcL Workflow SS LABORATORYOrdered By: Alyssa Steen on 11-21-2023 D-Dimer 3711 ng/mL D-DU High 0 - 230 ng/mL D-DU [employer] Comment on above: Result Comment: Resu lts [...] production present) Infection Control has been notified. [facility] Comment on above: The C.DIFF QUIK CHEC [...] of additives that may affect test performance. STGIPCRon 11-21-2023 Adenovirus F 40/41 Not detected Normal Not Detected [facility] ([place]) Comment on above: Performed By: #### S TGIPCR ####[place] [address] Astrovirus Not detected Normal Not Detected [facility] ([place]) Comment on above: Performed By: #### S TGIPCR ####[address] [address] Campy (jejuni/coli/ups) Not detected Normal Not Detected [facility] ([place]) Comment on above: Performed By: #### S TGIPCR ####[address] [address] Cryptosporidium Not detected Normal Not Detected [facility] ([place] Comment on above: Performed By: #### S TGIPCR ####[address] [address] Cyclospora Not detected Normal Not Detected [facility] ([place]) Comment on above: Performed By: #### S TGIPCR ####[place] [id number] E. coli (ETEC) Not detected Normal Not Detected [facility] ([place] Comment on above: Performed By: #### S TGIPCR ####[place] [id number] E. coli O157 Not Applicable Normal Not Detected [facility] ([place] Comment on above: Performed By: #### S TGIPCR ####[place] [address] Entamoeba histolytica Not detected Normal Not Detected [facility] ([place]) Comment on above: Performed By: #### S TGIPCR ####[place] [address] Enteroaggregative E. coli (EAEC) Not detected Normal Not Detected [facility] ([place] Comment on above: Performed By: #### S TGIPCR ####[place] [address] Enteropathogenic E. coli (EPEC) Not detected Normal Not Detected [facility] ([place] Comment on above: Performed By: #### S TGIPCR ####[place] [address] Giardia lamblia Not detected Normal Not Detected [facility] ([place] Comment on above: Performed By: #### S TGIPCR ####[place] [address] Norovirus GI/GII see below Normal Not Detected [facility] ([place] Comment on above: Result Comment: The shoe lining fitter of the Stool GI PCR panel has identified an increase of potential false positive results for Norovirus.??A Norovirus positive result should correlate with the patient?s clinical history and presentation, along with travel history and disease severity. Performed By: #### S TGIPCR ####[place] [address] Plesiomonas shigelloides Not detected Normal Not Detected [facility] ([place] Comment on above: Performed By: #### S TGIPCR ####[place] [address] Rotavirus A Not detected Normal Not Detected [facility] ([place] Comment on above: Performed By: #### S TGIPCR ####[place] [address] Salmonella species, stool Not detected Normal Not Detected [facility] ([place] Comment on above: Performed By: #### S TGIPCR ####[address] [place] [address] Sapovirus I,II,IV,V Not detected Normal Not Detected [facility] ([place] Comment on above: Performed By: #### S TGIPCR ####[place] [address] Shig Tox E. coli (STEC) Not detected Normal Not Detected [facility] ([place] Comment on above: Performed By: #### S TGIPCR ####[place] [address] Shigella/Enteroinvasive E. coli (EIEC) Not detected Normal Not Detected [facility] ([place] Comment on above: Performed By: #### S TGIPCR ####[place] [address] Stool GI Comment See Comment Normal [facility] ([place] Comment on above: Result Comment: Viru s, [...] the primers. Performed By: #### S TGIPCR ####[place] [address] Vibrio cholerae Not detected Normal Not Detected [facility] ([place] Comment on above: Performed By: #### S TGIPCR ####[place] [address] Vibrio par/vul/chol Not detected Normal Not Detected [facility] ([place] Comment on above: Performed By: #### S TGIPCR ####[place] [address] Yersinia enterocolitica Not detected Normal Not Detected [facility] ([place] Comment on above: Performed By: #### S TGIPCR ####[place] [address] .GFRon 11-20-2023 GFR Non- >60 Normal [facility] ([place] Comment on above: Result Comment: GFR Population [...] #### M ORPH, CBC, BMP, GFR, DIFF ####[place] [address] GFR >60 Normal On license of [facility] ([place]) Comment on above: Result Comment: GFR Population [...] #### M ORPH, CBC, BMP, GFR, DIFF ####[place] [address] .Manual Diffon 11-20-2023 Basophil %, Manual 0.0 % Normal 0.0-2.5 [facility] ([place] Comment on above: Performed By: #### M ORPH, CBC, BMP, GFR, DIFF ####[place] [address] Basophil, Abs Manual 0.0 10 3/mcL Normal 0.0-0.3 [facility] ([place]) Comment on above: Performed By: #### M ORPH, CBC, BMP, GFR, DIFF ####[address] [address] Eosinophil %, Manual 0.0 % Normal 0.0-6.0 On license of [facility] ([place] Comment on above: Performed By: #### M ORPH, CBC, BMP, GFR, DIFF ####[address] [address] Eosinophil, Abs Manual 0.0 10 3/mcL Normal 0.0-0.7 [facility] ([place] Comment on above: Performed By: #### M ORPH, CBC, BMP, GFR, DIFF ####[address] [address] Lymphocyte %, Manual 65.0 % High 20.0-40.0 On license of [facility] ([place] Comment on above: Performed By: #### M ORPH, CBC, BMP, GFR, DIFF ####[address] [address] Lymphocyte, Abs Manual 6.6 10 3/mcL High 0.9-4.3 [facility] ([place] Comment on above: Performed By: #### M ORPH, CBC, BMP, GFR, DIFF ####[address] [address] Monocyte %, Manual 1.0 % Low 2.0-13.0 [facility] ([place] Comment on above: Performed By: #### M ORPH, CBC, BMP, GFR, DIFF ####[address] [address] Monocyte, Abs Manual 0.1 10 3/mcL Normal 0.1-1.4 [facility] ([place]) Comment on above: Performed By: #### M ORPH, CBC, BMP, GFR, DIFF ####[address] [address] Myelocyte 1.0 % Normal [facility] ([place] Comment on above: Performed By: #### M ORPH, CBC, BMP, GFR, DIFF ####[address] [address] Neutrophil %, Manual 33.0 % Low 50.0-75.0 On license of [facility] ([place] Comment on above: Performed By: #### M ORPH, CBC, BMP, GFR, DIFF ####[address] [address] Neutrophil, Abs Manual 3.3 10 3/mcL Normal 2.3-8.1 [facility] ([place] Comment on above: Performed By: #### M ORPH, CBC, BMP, GFR, DIFF ####[place] [address] Nucleated RBC 1.0 /100 WBC Normal [facility] ([place] Comment on above: Performed By: #### M ORPH, CBC, BMP, GFR, DIFF ####[place] [address] .Morphon 11-20-2023 Platelet Estimate Normal Normal [facility]) Comment on above: Performed By: #### M ORPH, CBC, BMP, GFR, DIFF ####[place] [address] RBC morphology finding Nom (Bld) Normal Normal [facility] ([place] Comment on above: Performed By: #### M ORPH, CBC, BMP, GFR, DIFF ####[place] [address] APTTon 11-20-2023 aPTT Coag (Bld) [Time] 33.7 s Normal 25.0-35.0 [facility] ([place]) Comment on above: Result Comment: For Heparin anticoagulation therapy, the recommendedtherapeutic range is: 54-77 seconds (APTT Correlationwith Anti-Xa therapeutic range of 0.3-0.7 units/ml).PLEASE REFERENCE THE PHARMACY PROTOCOL FOR DOSING. Performed By: #### M ORPH, CBC, BMP, GFR, DIFF ####[place] [address] Heparin dose (APTT) Heparin IV Normal [facility] ([place] Comment on above: Performed By: #### M ORPH, CBC, BMP, GFR, DIFF ####[place] [address] BMPon 11-20-2023 BUN/Creatinine Ratio 7.9 ratio Low 10.0-22.0 On license of [facility] ([place]) Comment on above: Performed By: #### M ORPH, CBC, BMP, GFR, DIFF ####[address] [address] Calcium [Mass/Vol] 7.8 mg/dL Low 8.7-10.4 [facility] ([place] Comment on above: Performed By: #### M ORPH, CBC, BMP, GFR, DIFF ####[address] [address] Chloride [Moles/Vol] 108 mmol/L Normal 98-110 On license of [facility] ([place] Comment on above: Performed By: #### M ORPH, CBC, BMP, GFR, DIFF ####[place] [address] CO2 [Moles/Vol] 25 mmol/L Normal 22-32 [facility] ([place] Comment on above: Performed By: #### M ORPH, CBC, BMP, GFR, DIFF ####[place] [address] Creatinine [Mass/Vol] 0.76 mg/dL Normal 0.50-1.20 [facility] ([place] Comment on above: Performed By: #### M ORPH, CBC, BMP, GFR, DIFF ####[address] [address] Electrolyte Balance 5.0 mEq/L Normal 4.0-15.0 [facility] ([place]) Comment on above: Performed By: #### M ORPH, CBC, BMP, GFR, DIFF ####[address] [address] Glucose [Mass/Vol] 133 mg/dL High 70-110 [facility] ([place]) Comment on above: Performed By: #### M ORPH, CBC, BMP, GFR, DIFF ####[address] [address] Potassium [Moles/Vol] 3.9 mmol/L Normal 3.5-5.0 [facility] ([place]) Comment on above: Performed By: #### M ORPH, CBC, BMP, GFR, DIFF ####[place] [address] Sodium [Moles/Vol] 138 mmol/L Normal 136-145 [facility] ([place]) Comment on above: Performed By: #### M ORPH, CBC, BMP, GFR, DIFF ####[place] [address] Urea nitrogen [Mass/Vol] 6.0 mg/dL Low 8.0-22.0 [facility] ([place]) Comment on above: Performed By: #### M ORPH, CBC, BMP, GFR, DIFF ####[place] [address] CBCon 11-20-2023 Erythrocyte distribution width (RBC) [Ratio] 16.1 % High 11.5-15.5 [facility] ([place]) Comment on above: Performed By: #### M ORPH, CBC, BMP, GFR, DIFF ####[place] [address] Hematocrit (Bld) [Volume fraction] 35.9 % Normal 34.0-46.0 [facility] ([place]) Comment on above: Performed By: #### M ORPH, CBC, BMP, GFR, DIFF ####[place] [address] Hgb 12.0 G/dL Normal 12.0-16.0 [facility] ([place]) Comment on above: Performed By: #### M ORPH, CBC, BMP, GFR, DIFF ####[place] [address] MCH (RBC) [Entitic mass] 30.5 pg Normal 27.0-33.0 [facility] ([place]) Comment on above: Performed By: #### M ORPH, CBC, BMP, GFR, DIFF ####[place] [address] MCHC 33.3 G/dL Normal 32.0-36.0 [facility] ([place]) Comment on above: Performed By: #### M ORPH, CBC, BMP, GFR, DIFF ####[address] [place] [address] MCV (RBC) [Entitic vol] 91.4 fL Normal 80.0-99.0 A [facility] ([place]) Comment on above: Performed By: #### M ORPH, CBC, BMP, GFR, DIFF ####[address] [address] Platelet 160 10 3/mcL Normal 150-450 [facility] ([place]) Comment on above: Performed By: #### M ORPH, CBC, BMP, GFR, DIFF ####[place] [address] Platelet mean volume (Bld) [Entitic vol] 7.9 fL Normal 6.6-10.5 [facility] ([place]) Comment on above: Performed By: #### M ORPH, CBC, BMP, GFR, DIFF ####[place] [address] RBC 3.93 10 6/mcL Low 4.10-5.30 [facility] ([place]) Comment on above: Performed By: #### M ORPH, CBC, BMP, GFR, DIFF ####[address] [address] WBC 10.1 10 3/mcL Normal 4.5-10.8 [facility] ([place]) Comment on above: Performed By: #### M ORPH, CBC, BMP, GFR, DIFF ####[place] [address] LABORATORYOrdered By: Amalia Yu on 11-20-2023 aPTT [...] 2.5 % AH Workflow SS Calcium [Mass/Vol] 7.8 mg/dL Low 8.7 - 10. 4 mg/dL ADM SS Chloride [Moles/Vol] 108 mmol/L Normal [...] 16.1 % High 11.5 - 15.5 % AH Workflow SS GFR/1.73 sq M.predicted among blacks MDRD (S/P/Bld) [Vol rate/Area] ml/min/1.73sqm Invalid Interpretation Code [employer] S Comment on above: Interpretive Data: [...] (S/P/Bld) [Vol rate/Area] ml/min/1.73sqm Invalid Interpretation Code [employer] S Comment on above: Interpretive Data: [...] 10.1 103/mcL Normal 4.5 - 10.8 10^3/mcL AH Workflow SS .GFRon 11-19-2023 GFR Non- >60 Normal [facility] ([place]) Comment on above: Result Comment: GFR Population [...] FR, MORPH, CMP, PNHPNL, DIFF, A1C, CBC ####[place] [address] GFR >60 Normal On license of [facility] ([place]) Comment on above: Result Comment: GFR Population [...] CMP, PNHPNL, DIFF, A1C, CBC ####[place] [address] [place] [address] .Manual Diffon 11-19-2023 Atypical Lymphs 7.0 % High 0.0-5.0 [facility] ([place]) Comment on above: Performed By: #### G FR, MORPH, CMP, PNHPNL, DIFF, A1C, CBC ####[place] [address] Bands 1.0 % Normal 0.0-5.0 [facility] ([place]) Comment on above: Performed By: #### G FR, MORPH, CMP, PNHPNL, DIFF, A1C, CBC ####[place] [address] Basophil %, Manual 0.0 % Normal 0.0-2.5 [facility] ([place]) Comment on above: Performed By: #### G FR, MORPH, CMP, PNHPNL, DIFF, A1C, CBC ####[place] [address] Basophil, Abs Manual 0.0 10 3/mcL Normal 0.0-0.3 [facility] ([place]) Comment on above: Performed By: #### G FR, MORPH, CMP, PNHPNL, DIFF, A1C, CBC ####[address] [address] Eosinophil %, Manual 0.0 % Normal 0.0-6.0 On license of [facility] ([place]) Comment on above: Performed By: #### G FR, MORPH, CMP, PNHPNL, DIFF, A1C, CBC ####[address] [address] Eosinophil, Abs Manual 0.0 10 3/mcL Normal 0.0-0.7 [facility] ([place]) Comment on above: Performed By: #### G FR, MORPH, CMP, PNHPNL, DIFF, A1C, CBC ####[place] [address] Lymphocyte %, Manual 62.0 % High 20.0-40.0 On license of [facility] ([place]) Comment on above: Performed By: #### G FR, MORPH, CMP, PNHPNL, DIFF, A1C, CBC ####[place] [address] Lymphocyte, Abs Manual 5.9 10 3/mcL High 0.9-4.3 [facility] ([place]) Comment on above: Performed By: #### G FR, MORPH, CMP, PNHPNL, DIFF, A1C, CBC ####[place] [address] Metamyelocyte 2.0 % Normal [facility] ([place]) Comment on above: Performed By: #### G FR, MORPH, CMP, PNHPNL, DIFF, A1C, CBC ####[place] [address] Monocyte %, Manual 9.0 % Normal 2.0-13.0 [facility] ([place]) Comment on above: Performed By: #### G FR, MORPH, CMP, PNHPNL, DIFF, A1C, CBC ####[place] [address] Monocyte, Abs Manual 0.9 10 3/mcL Normal 0.1-1.4 [facility] ([place]) Comment on above: Performed By: #### G FR, MORPH, CMP, PNHPNL, DIFF, A1C, CBC ####[place] [address] Myelocyte 2.0 % Normal [facility] ([place]) Comment on above: Performed By: #### G FR, MORPH, CMP, PNHPNL, DIFF, A1C, CBC ####[place] [address] Neutrophil %, Manual 17.0 % Low 50.0-75.0 On license of [facility] ([place]) Comment on above: Performed By: #### G FR, MORPH, CMP, PNHPNL, DIFF, A1C, CBC ####[place] [address] Neutrophil, Abs Manual 1.7 10 3/mcL Low 2.3-8.1 [facility] ([place]) Comment on above: Performed By: #### G FR, MORPH, CMP, PNHPNL, DIFF, A1C, CBC ####[place] [address] Nucleated RBC 0.0 /100 WBC Normal [facility] ([place]) Comment on above: Performed By: #### G FR, MORPH, CMP, PNHPNL, DIFF, A1C, CBC ####[place] [address] .Morphon 11-19-2023 Anisocytosis Ql (Bld) 1+ Normal [facility] ([place]) Comment on above: Performed By: #### G FR, MORPH, CMP, PNHPNL, DIFF, A1C, CBC ####[place] [address] Hypochrom 1+ Normal [facility] ([place]) Comment on above: Performed By: #### G FR, MORPH, CMP, PNHPNL, DIFF, A1C, CBC ####[place] [address] Ovalocytes 1+ Normal [facility] ([place]) Comment on above: Performed By: #### G FR, MORPH, CMP, PNHPNL, DIFF, A1C, CBC ####[place] [address] Platelet Estimate Slt Decreased Normal On license of [facility] ([place]) Comment on above: Performed By: #### G FR, MORPH, CMP, PNHPNL, DIFF, A1C, CBC ####[place] [address] Polychrom 1+ Normal [facility] ([place]) Comment on above: Performed By: #### G FR, MORPH, CMP, PNHPNL, DIFF, A1C, CBC ####[address] [address] A1Con 11-19-2023 HbA1c (Bld) [Mass fraction] 10.5 % High 4.0-6.0 [facility] ([place]) Comment on above: Performed By: #### G FR, MORPH, CMP, PNHPNL, DIFF, A1C, CBC ####[address] [address] APTTon 11-19-2023 aPTT Coag (Bld) [Time] 65.7 s High 25.0-35.0 [facility] ([place]) Comment on above: Result Comment: Spec imen hemolyzed. Results may be affected.For Heparin anticoagulation therapy, the recommendedtherapeutic range is: 54-77 seconds (APTT Correlationwith Anti-Xa therapeutic range of 0.3-0.7 units/ml).PLEASE REFERENCE THE PHARMACY PROTOCOL FOR DOSING. Heparin dose (APTT) Heparin IV Normal [facility] ([place]) aPTT Coag (Bld) [Time] 51.4 s High 25.0-35.0 [facility] ([place]) Comment on above: Result Comment: For Heparin anticoagulation therapy, the recommendedtherapeutic range is: 54-77 seconds (APTT Correlationwith Anti-Xa therapeutic range of 0.3-0.7 units/ml).PLEASE REFERENCE THE PHARMACY PROTOCOL FOR DOSING. Heparin dose (APTT) Heparin IV Normal [facility] ([place]) aPTT Coag (Bld) [Time] 46.2 s High 25.0-35.0 [facility] ([place]) Comment on above: Result Comment: For Heparin anticoagulation therapy, the recommendedtherapeutic range is: 54-77 seconds (APTT Correlationwith Anti-Xa therapeutic range of 0.3-0.7 units/ml).PLEASE REFERENCE THE PHARMACY PROTOCOL FOR DOSING. Heparin dose (APTT) Heparin IV Normal [facility] ([place]) CBCon 11-19-2023 Erythrocyte distribution width (RBC) [Ratio] 15.9 % High 11.5-15.5 [facility] ([place]) Comment on above: Performed By: #### G FR, MORPH, CMP, PNHPNL, DIFF, A1C, CBC ####[place] [address] Hematocrit (Bld) [Volume fraction] 32.4 % Low 34.0-46.0 [facility] ([place]) Comment on above: Performed By: #### G FR, MORPH, CMP, PNHPNL, DIFF, A1C, CBC ####[place] [address] Hgb 11.0 G/dL Low 12.0-16.0 [facility] ([place]) Comment on above: Performed By: #### G FR, MORPH, CMP, PNHPNL, DIFF, A1C, CBC ####[place] [address] MCH (RBC) [Entitic mass] 30.8 pg Normal 27.0-33.0 [facility] ([place]) Comment on above: Performed By: #### G FR, MORPH, CMP, PNHPNL, DIFF, A1C, CBC ####[place] [address] MCHC 33.9 G/dL Normal 32.0-36.0 [facility] ([place]) Comment on above: Performed By: #### G FR, MORPH, CMP, PNHPNL, DIFF, A1C, CBC ####[place] [address] MCV (RBC) [Entitic vol] 90.8 fL Normal 80.0-99.0 A [facility] ([place]) Comment on above: Performed By: #### G FR, MORPH, CMP, PNHPNL, DIFF, A1C, CBC ####[place] [address] Platelet 147 10 3/mcL Low 150-450 [facility] ([place]) Comment on above: Performed By: #### G FR, MORPH, CMP, PNHPNL, DIFF, A1C, CBC ####[place] [address] Platelet mean volume (Bld) [Entitic vol] 8.5 fL Normal 6.6-10.5 [facility] ([place]) Comment on above: Performed By: #### G FR, MORPH, CMP, PNHPNL, DIFF, A1C, CBC ####[address] [address] RBC 3.56 10 6/mcL Low 4.10-5.30 [facility] ([place]) Comment on above: Performed By: #### G FR, MORPH, CMP, PNHPNL, DIFF, A1C, CBC ####[address] [address] WBC 9.6 10 3/mcL Normal 4.5-10.8 [facility] ([place]) Comment on above: Performed By: #### G FR, MORPH, CMP, PNHPNL, DIFF, A1C, CBC ####[address] [address] CMPon 11-19-2023 Albumin Level 2.2 G/dL Low 3.2-4.8 [facility] ([place]) Comment on above: Performed By: #### G FR, MORPH, CMP, PNHPNL, DIFF, A1C, CBC ####[place] [address] Albumin/Globulin [Mass ratio] 0.7 {ratio} Low 0.9-1.6 [facility] ([place]) Comment on above: Performed By: #### G FR, MORPH, CMP, PNHPNL, DIFF, A1C, CBC ####[address] [address] ALP [Catalytic activity/Vol] 78 U/L Normal 38-126 [facility] ([place]) Comment on above: Performed By: #### G FR, MORPH, CMP, PNHPNL, DIFF, A1C, CBC ####[address] [address] ALT [Catalytic activity/Vol] 38 U/L Normal 10-49 [facility] ([place]) Comment on above: Performed By: #### G FR, MORPH, CMP, PNHPNL, DIFF, A1C, CBC ####[address] [address] AST [Catalytic activity/Vol] 45 U/L High 8-34 [facility] ([place]) Comment on above: Performed By: #### G FR, MORPH, CMP, PNHPNL, DIFF, A1C, CBC ####[address] [address] Bili Total 0.20 mg/dL Normal 0.20-1.20 [facility] ([place]) Comment on above: Result Comment: Use of this assay is not recommended for patients undergoing treatment with eltrombopag due to the potential for falsely elevated results. Performed By: #### G FR, MORPH, CMP, PNHPNL, DIFF, A1C, CBC ####[place] [address] BUN/Creatinine Ratio 8.3 ratio Low 10.0-22.0 On license of [facility] ([place]) Comment on above: Performed By: #### G FR, MORPH, CMP, PNHPNL, DIFF, A1C, CBC ####[address] [address] Calcium [Mass/Vol] 7.4 mg/dL Low 8.7-10.4 [facility] ([place]) Comment on above: Performed By: #### G FR, MORPH, CMP, PNHPNL, DIFF, A1C, CBC ####[address] [address] Chloride [Moles/Vol] 109 mmol/L Normal 98-110 On license of [facility] ([place]) Comment on above: Performed By: #### G FR, MORPH, CMP, PNHPNL, DIFF, A1C, CBC ####[address] [address] CO2 [Moles/Vol] 18 mmol/L Low 22-32 [facility] ([place]) Comment on above: Performed By: #### G FR, MORPH, CMP, PNHPNL, DIFF, A1C, CBC ####[address] [address] Creatinine [Mass/Vol] 0.72 mg/dL Normal 0.50-1.20 [facility] ([place]) Comment on above: Performed By: #### G FR, MORPH, CMP, PNHPNL, DIFF, A1C, CBC ####[address] [address] Electrolyte Balance 10.0 mEq/L Normal 4.0-15.0 [facility] ([place]) Comment on above: Performed By: #### G FR, MORPH, CMP, PNHPNL, DIFF, A1C, CBC ####[place] [address] [place] [address] Globulin 3.3 G/dL Normal 1.5-3.8 [facility] ([place]) Comment on above: Performed By: #### G FR, MORPH, CMP, PNHPNL, DIFF, A1C, CBC ####[address] [address] Glucose [Mass/Vol] 123 mg/dL High 70-110 [facility] ([place]) Comment on above: Performed By: #### G FR, MORPH, CMP, PNHPNL, DIFF, A1C, CBC ####[address] [address] Potassium [Moles/Vol] 4.1 mmol/L Normal 3.5-5.0 [facility] ([place]) Comment on above: Result Comment: Spec imen slightly hemolyzed. Performed By: #### G FR, MORPH, CMP, PNHPNL, DIFF, A1C, CBC ####[place] [address] Sodium [Moles/Vol] 137 mmol/L Normal 136-145 [facility] ([place]) Comment on above: Performed By: #### G FR, MORPH, CMP, PNHPNL, DIFF, A1C, CBC ####[place] [address] Total Protein 5.5 G/dL Low 5.7-8.2 [facility] ([place]) Comment on above: Result Comment: No te - New Reference Range in effect 19 Performed By: #### G FR, MORPH, CMP, PNHPNL, DIFF, A1C, CBC ####[address] [address] Urea nitrogen [Mass/Vol] 6.0 mg/dL Low 8.0-22.0 [facility] ([place]) Comment on above: Performed By: #### G FR, MORPH, CMP, PNHPNL, DIFF, A1C, CBC ####[facility] [place] [address] Rosa 11-19-2023 CUR Alcira [facility] ([place]) LABORATORYOrdered By: Loraine Reddy on 11-19-2023 aPTT [...] Coagulation S LABORATORYOrdered By: SYSTEM SYSTEM on 11-19-2023 Albumin BCP dye [Mass/Vol] 2.2 G/dL Low 3.2 - 4.8 G/dL AH ADM SS Albumin/Globulin [Mass ratio] 0.7 {ratio} Low 0.9 - 1.6 ratio AH ADM SS ALP [Catalytic activity/Vol] 78 U/L Normal 38 - 126 U/L AH ADM SS ALT No additional P-5'-P [Catalytic activity/Vol] 38 U/L Normal 10 - 49 U/L AH ADM SS Anisocytosis Ql (Bld) 1+ *NA* (11/19/23 2:55 AM) Invalid Interpretation Code AH Workflow SS AST [Catalytic activity/Vol] 45 U/L High 8 - 34 U/L AH ADM SS Band form neutrophils/100 WBC (Bld) 1.0 % Normal 0.0 - 5.0 % AH Workflow SS Bilirubin [Mass/Vol] 0.20 mg/dL Normal 0.20 - 1.20 mg/dL AH ADM SS Comment on above: Interpretive Data: U se of this assay is not recommended for patients undergoing treatment with eltrombopag due to the potential for falsely elevated results. Globulin 3.3 G/dL Normal 1.5 - 3.8 G/dL AH ADM SS HbA1c (Bld) [Mass fraction] 10.5 % High 4.0 - 6.0 % AH Auto Chem SS Hypochromia Ql (Bld) 1+ *NA* (11/19/23 2:55 AM) [...] 5.5 G/dL Low 5.7 - 8.2 G/dL ADM SS Comment on above: Interpretive Data: * *Note - New Reference Range in effect 19 Variant lymphocytes/100 WBC (Bld) 7.0 % High 0.0 - 5.0 % Workflow SS LABORATORYOrdered By: LOLIS_Acosta BAO CONTRIBUTOR_SYSTEM on 11-19-2023 Factor V Leiden Factor V Leiden PCR Invalid Interpretation Code Sendouts Comment on above: Result Comment: Violetta pathak Accession Number: [id number] Result: NEGATIVE Interpretation: The DNA sample is [...] blood specimen is evaluated for the c.1601G>A (p.Ysa313Hft;[id number]) variant of the F5 gene [RefSeq [id number]; [...] developed and its performance characteristics determined by [facility] [place] [facility] It has not been cleared or approved by the FDA. [facility] is regulated under CLIA as certified to perform high- complexity testing. This test is used for clinical purposes. It should not be regarded as investigational or for research. Testing [place] [address]. CLIA Number: [id number] References: 1) Mary R, Jose G, Marcos P. The genetics of venous thromboembolism. A meta-analysis involving approximately 120,000 cases and 180,000 controls. Thromb Haemost 2009;102(2):360-70. 2) Inherited Thrombophilias in . ACOG Practice Bulletin.No.197.[employer] [employer]. Obstet Gynecol 2018;132:e18-34. 3) [place] SILVEIRA. Factor V Leiden Thrombophilia. Echo Med.2011;13(1):1-16. 4) Pharmacogenomics summary [email or web address] As reviewed by Alexa Spear MD, PhD Performed By: [facility] [address] [place] [address]. [place] [address] Transportation Aid: Seth Whalen III, M.D. CLIA#: [id number] PT Gene Mut Prothrombin Gene Mutation Invalid Interpretation Code AH Sendouts SS Comment on above: Result Comment: Violetta pathak Accession Number: [id number] Result: NORMAL Interpretation: The DNA sample is negative for the c.*97G>A variant (legacy name 56781N>A) in the 3' untranslated region of the Factor II (F2) gene. This result is not associated with an increased risk of thromboembolic disease. Thromboembolic disease is a multifactorial disorder and other causes are not excluded by this result. Methodology: Isolated Genomic DNA from the patient's blood specimen is evaluated for the c*97G>A ([id number]) variant of the F2 gene [RefSeq [id number];GRCh38/hg38] by multiplex polymerase chain reaction (PCR) followed by melting curve analysis. Limitations: This assay is designed to detect the c.*97G>A (38256T>A) variant in the F2 gene. Uncommon variants or single nucleotide polymorphisms may affect binding of probes and may rarely result in false negative, false positive or indeterminate results. This assay does not detect other disease-associated rare variants in F2 or other causes of thromboembolic disease. Disclaimer: This test was developed and its performance characteristics determined by [facility] [place] ([facility] It has not been cleared or approved by the FDA. -[facility] is regulated under CLIA as certified to perform high- complexity testing. This test is used for clinical purposes. It should not be regarded as investigational or for research. Testing and interpretation performed at [facility], [address] [place] [address]. CLIA Number: [id number] References: 1) Inheritied Thrombophilias in . ACOG Practice Bulletin. No. 197. [employer]. Obsete Gynecol 2018;132:e18-34. 2) Mjt SR, Yasmin FR, Recarmen PH, and Yu MUHAMMAD. A common genetic variation in the 3'-untranslated region of the prothrombin gene is associated with elevated plasma prothrombin levels and an increase in venous thrombosis. Blood 88:3698-703, 1996. 3) Enrique I, Justin V, Fito C, Mian K. Prothrombin 69334F>T: 16 new cases, association with the 37321F>G polymorphism, and literature review. J Thromb Haemost. 2009;9:1585-7. As reviewed by Alexa Spear MD, PhD Performed By: [employer] [facility] [address] [place] [address] Transportation Aid: Seth RAYA#: [id number] No Panel Informationon 11-18 Culture Urine No growth at 48 hours. [facility] .GFRon 11-18-2023 GFR Non- >60 Normal [facility] ([place]) Comment on above: Result Comment: GFR Population [...] mL/min/1.73 square meters Performed By: #### G , CMP ####[place] [address] GFR >60 Normal On license of [facility] ([place]) Comment on above: Result Comment: GFR Population [...] square meters Performed By: #### G FR, CMP ####[place] [address] .Manual Diffon 06-22-2024 Bands 3.0 % Normal 0.0-5.0 [facility] ([place]) Comment on above: Performed By: #### C BC, DIFF, MORPH ####[place] [address] Basophil %, Manual 0.0 % Normal 0.0-2.5 [facility] ([place]) Comment on above: Performed By: #### C BC, DIFF, MORPH ####[place] [address] Basophil, Abs Manual 0.0 10 3/mcL Normal 0.0-0.3 [facility] ([place]) Comment on above: Performed By: #### C BC, DIFF, MORPH ####[place] [address] Eosinophil %, Manual 1.0 % Normal 0.0-6.0 On license of [facility] ([place]) Comment on above: Performed By: #### C BC, DIFF, MORPH ####[place] [address] Eosinophil, Abs Manual 0.1 10 3/mcL Normal 0.0-0.7 [facility] ([place]) Comment on above: Performed By: #### C BC, DIFF, MORPH ####[place] [address] Lymphocyte %, Manual 58.0 % High 20.0-40.0 On license of [facility] ([place]) Comment on above: Performed By: #### C BC, DIFF, MORPH ####[place] [address] Lymphocyte, Abs Manual 5.5 10 3/mcL High 0.9-4.3 [facility] ([place]) Comment on above: Performed By: #### C BC, DIFF, MORPH ####[place] [address] Monocyte %, Manual 9.0 % Normal 2.0-13.0 [facility] ([place]) Comment on above: Performed By: #### C BC, DIFF, MORPH ####[place] [address] Monocyte, Abs Manual 0.9 10 3/mcL Normal 0.1-1.4 [facility] ([place]) Comment on above: Performed By: #### C BC, DIFF, MORPH ####[place] [address] Neutrophil %, Manual 29.0 % Low 50.0-75.0 On license of [facility] ([place]) Comment on above: Performed By: #### C BC, DIFF, MORPH ####[place] [address] Neutrophil, Abs Manual 3.0 10 3/mcL Normal 2.3-8.1 [facility] ([place]) Comment on above: Performed By: #### C BC, DIFF, MORPH ####[place] [address] Nucleated RBC 0.0 /100 WBC Normal [facility] ([place]) Comment on above: Performed By: #### C BC, DIFF, MORPH ####[place] [address] .Morphon 11-18-2023 Anisocytosis Ql (Bld) 1+ Normal [facility] ([place]) Comment on above: Performed By: #### C BC, DIFF, MORPH ####[place] [address] Platelet Estimate Normal Normal [facility] ([place]) Comment on above: Performed By: #### C BC, DIFF, MORPH ####[place] [address] APTTon 11-18-2023 aPTT Coag (Bld) [Time] 51.7 s High 25.0-35.0 [facility] ([place]) Comment on above: Result Comment: For Heparin anticoagulation therapy, the recommendedtherapeutic range is: 54-77 seconds (APTT Correlationwith Anti-Xa therapeutic range of 0.3-0.7 units/ml).PLEASE REFERENCE THE PHARMACY PROTOCOL FOR DOSING. Heparin dose (APTT) Heparin IV Normal [facility] ([place]) aPTT Coag (Bld) [Time] 37.9 s High 25.0-35.0 [facility] ([place]) Comment on above: Result Comment: For Heparin anticoagulation therapy, the recommendedtherapeutic range is: 54-77 seconds (APTT Correlationwith Anti-Xa therapeutic range of 0.3-0.7 units/ml).PLEASE REFERENCE THE PHARMACY PROTOCOL FOR DOSING. Performed By: #### P RO ####[place] [address] Heparin dose (APTT) Heparin IV Normal [facility] ([place]) Comment on above: Performed By: #### P RO ####[place] [address] CBCon 11-18-2023 Erythrocyte distribution width (RBC) [Ratio] 15.5 % Normal 11.5-15.5 [facility] ([place]) Comment on above: Performed By: #### C BC, DIFF, MORPH ####[place] [address] Hematocrit (Bld) [Volume fraction] 32.7 % Low 34.0-46.0 [facility] ([place] Comment on above: Performed By: #### C BC, DIFF, MORPH ####[place] [address] Hgb 11.3 G/dL Low 12.0-16.0 [facility] ([place]) Comment on above: Performed By: #### C BC, DIFF, MORPH ####[place] [address] MCH (RBC) [Entitic mass] 31.0 pg Normal 27.0-33.0 [facility] ([place]) Comment on above: Performed By: #### C BC, DIFF, MORPH ####[place] [address] MCHC 34.5 G/dL Normal 32.0-36.0 [facility] ([place]) Comment on above: Performed By: #### C BC, DIFF, MORPH ####[place] [address] MCV (RBC) [Entitic vol] 89.9 fL Normal 80.0-99.0 A [facility] ([place] Comment on above: Performed By: #### C BC, DIFF, MORPH ####[address] [address] Platelet 155 10 3/mcL Normal 150-450 [facility] ([place]) Comment on above: Performed By: #### C BC, DIFF, MORPH ####[address] [address] Platelet mean volume (Bld) [Entitic vol] 8.4 fL Normal 6.6-10.5 [facility] ([place]) Comment on above: Performed By: #### C BC, DIFF, MORPH ####[address] [address] RBC 3.63 10 6/mcL Low 4.10-5.30 [facility] ([place] Comment on above: Performed By: #### C BC, DIFF, MORPH ####[address] [address] WBC 9.5 10 3/mcL Normal 4.5-10.8 [facility] ([place]) Comment on above: Performed By: #### [place]osta BC, DIFF, MORPH ####[place] [address] CMPon 11-18-2023 Albumin Level 2.4 G/dL Low 3.2-4.8 [facility] [facility] ([place] Comment on above: Performed By: #### G FR, CMP ####[address] [address] Albumin/Globulin [Mass ratio] 0.7 {ratio} Low 0.9-1.6 [facility] ([place]) Comment on above: Performed By: #### G FR, CMP ####[address] [address] ALP [Catalytic activity/Vol] 86 U/L Normal 38-126 [facility] ([place]) Comment on above: Performed By: #### G FR, CMP ####[address] [address] ALT [Catalytic activity/Vol] 45 U/L Normal 10-49 [facility] ([place]) Comment on above: Performed By: #### G FR, CMP ####[place] [address] AST [Catalytic activity/Vol] 45 U/L High 8-34 [facility] ([place]) Comment on above: Performed By: #### Mindy BEARDEN, CMP ####[place] [address] Bili Total 0.30 mg/dL Normal 0.20-1.20 [facility] ([place]) Comment on above: Result Comment: Use of this assay is not recommended for patients undergoing treatment with eltrombopag due to the potential for falsely elevated results. Performed By: #### iMndy BEARDEN, CMP ####[place] [address] BUN/Creatinine Ratio 9.7 ratio Low 10.0-22.0 On license of [facility] ([place]) Comment on above: Performed By: #### Mindy BEARDEN, CMP ####[place] [address] Calcium [Mass/Vol] 7.6 mg/dL Low 8.7-10.4 [facility] ([place]) Comment on above: Performed By: #### Mindy BEARDEN, CMP ####[place] [address] Chloride [Moles/Vol] 109 mmol/L Normal 98-110 On license of [facility] ([place]) Comment on above: Performed By: #### Mindy BEARDEN, CMP ####[place] [address] CO2 [Moles/Vol] 19 mmol/L Low 22-32 [facility] ([place]) Comment on above: Performed By: #### Mindy BEARDEN, CMP ####[place] [address] Creatinine [Mass/Vol] 0.72 mg/dL Normal 0.50-1.20 [facility] ([place]) Comment on above: Performed By: #### Mindy BEARDEN, CMP ####[place] [address] Electrolyte Balance 11.0 mEq/L Normal 4.0-15.0 [facility] ([place]) Comment on above: Performed By: #### Mindy BEARDEN, CMP ####[place] [address] Globulin 3.3 G/dL Normal 1.5-3.8 [facility] ([place]) Comment on above: Performed By: #### Mindy BEARDEN, CMP ####[address] [address] Glucose [Mass/Vol] 168 mg/dL High 70-110 [facility] ([place]) Comment on above: Performed By: #### Mindy BEARDEN, CMP ####[address] [address] Potassium [Moles/Vol] 3.8 mmol/L Normal 3.5-5.0 [facility] ([place]) Comment on above: Performed By: #### Mindy BEARDEN, CMP ####[address] [address] Sodium [Moles/Vol] 139 mmol/L Normal 136-145 [facility] ([place]) Comment on above: Performed By: #### Mindy BEARDEN, CMP ####[address] [address] Total Protein 5.7 G/dL Normal 5.7-8.2 [facility] ([place]) Comment on above: Result Comment: No te - New Reference Range in effect 19 Performed By: #### Mindy BEARDEN, CMP ####[address] [address] Urea nitrogen [Mass/Vol] 7.0 mg/dL Low 8.0-22.0 [facility] ([place]) Comment on above: Performed By: #### Mindy BEARDEN, CMP ####[address] [address] [address] ABD/PELVIS W/ IV CONTRAST ONLYon 11-18-2023 CT ABD/PELVIS W/ IV CONTRAST ONLY Normal [facility] ([place]) LABORATORYOrdered By: SYSTEM SYSTEM on 11-18-2023 Albumin BCP dye [Mass/Vol] 2.4 G/dL Low 3.2 - 4.8 G/dL AH ADM SS Albumin/Globulin [Mass ratio] 0.7 {ratio} Low 0.9 - 1.6 ratio AH ADM SS ALP [Catalytic activity/Vol] 86 U/L Normal 38 - 126 U/L ADM SS ALT No additional P-5'-P [Catalytic activity/Vol] 45 U/L Normal 10 - 49 U/L ADM SS AST [Catalytic activity/Vol] 45 U/L [...] G/dL Normal 5.7 - 8.2 G/dL ADM SS Comment on above: Interpretive Data: * *Note - New Reference Range in effect 19 LABORATORYOrdered By: Denise Robb on 11-18-2023 PT Coag (PPP) [Time] 11.0 s Normal 9.0 - 1 4.4 [facility] Comment on above: Interpretive Data: E ffective 12/11/07, Protime results may be affected by some antibiotics (i.e. Ciprofloxacin, Azithromycin, Bactrim) which may potentiate the action of oral anticoagulants, with further increases in Protime/INR. PT International Ratio 1.0 ratio Invalid Interpretation Code HemVTub Comment on above: Interpretive Data: Ale coreas [employer] (CHEST, 1991, 102:312S-25S) recommended therapeutic range for oral anticoagulant therapy is: LOW RISK: Prophylaxis of venous thrombosis INR: 2.0-3.0 Treatment of pulmonary embolism 2.0-3.0 Prevention of systemic embolism 2.0-3.0 HIGH RISK: Mechanical prosthetic valves 2.5-3.5 LACon 11-18-2023 Lactic Acid Lvl 1.0 mmol/L Normal 0.4-2.0 [facility] ([place]) Comment on above: Performed By: #### L ####[address] [place], [place] [address] PROon 11-18-2023 INR Coag (PPP) [Relative time] 1.0 {INR} Normal [facility] ([place]) Comment on above: Result Comment: [employer] (CHEST, 1992, 102:312S-25S)recommended therapeutic range for oral anticoagulant therapy is:LOW RISK: Prophylaxis of venous thrombosis INR: 2.0-3.0 Treatment of pulmonary embolism 2.0-3.0 Prevention of systemic embolism 2.0-3.0HIGH RISK: Mechanical prosthetic valves 2.5-3.5 Performed By: #### P RO ####[address] [address] PT Coag (PPP) [Time] 11.0 s Normal 9.0-14.4 On license of [facility] ([place]) Comment on above: Result Comment: Effe ctive 12/11/07, Protime results may be affected by some antibiotics (i.e. Ciprofloxacin, Azithromycin, Bactrim) which may potentiate the action of oral anticoagulants, with further increases in Protime/INR. Performed By: #### P RO ####[address] [address] XR CHEST 1 VIEWon 11-18-2023 XR CHEST 1 VIEW Normal [facility] ([place]) .GFRon 11-17-2023 GFR 70 ml/min/1.73sqm Normal [facility] ([place]) Comment on above: Result Comment: GFR Population [...] PRO, MDW, GFR, DIFF, MORPH, CMP ####[address] [place], [place] [address] GFR Non- 57 ml/min/1.73sqm Normal [facility] ([place]) Comment on above: Result Comment: GFR Population [...] MDW, GFR, DIFF, MORPH, CMP ####[address] [place] [id number] .MDWon 11-17-2023 Monocyte Distribution Width 27.57 High 0.00-20.00 [facility] ([place]) Comment on above: Result Comment: The predictive value of MDW for identifying sepsis in patients with hematological abnormalities has not been established Performed By: #### L AC, CBC, PRO, MDW, GFR, DIFF, MORPH, CMP ####[address] [place] [address] .Manual Diffon 11-17-2023 Basophil %, Manual 0.0 % Normal 0.0-2.5 [facility] ([place]) Comment on above: Performed By: #### L AC, CBC, PRO, MDW, GFR, DIFF, MORPH, CMP ####[address] [place] [id number] Basophil, Abs Manual 0.0 10 3/mcL Normal 0.0-0.2 [facility] ([place]) Comment on above: Performed By: #### L AC, CBC, PRO, MDW, GFR, DIFF, MORPH, CMP ####[address] [place], [place] [address] Eosinophil %, Manual 1.0 % Normal 0.0-7.0 On license of [facility] ([place]) Comment on above: Performed By: #### L AC, CBC, PRO, MDW, GFR, DIFF, MORPH, CMP ####[address] [place], [place] [address] Eosinophil, Abs Manual 0.1 10 3/mcL Normal 0.0-0.4 [facility] ([place]) Comment on above: Performed By: #### L AC, CBC, PRO, MDW, GFR, DIFF, MORPH, CMP ####[address] [place], [place] [address] Lymphocyte %, Manual 54.0 % High 10.0-50.0 On license of [facility] ([place]) Comment on above: Performed By: #### L AC, CBC, PRO, MDW, GFR, DIFF, MORPH, CMP ####[address] [place], [place] [address] Lymphocyte, Abs Manual 6.2 10 3/mcL High 0.8-3.9 [facility] ([place]) Comment on above: Performed By: #### L AC, CBC, PRO, MDW, GFR, DIFF, MORPH, CMP ####[address] [place], [place] [address] Monocyte %, Manual 9.0 % Normal 1.7-13.0 [facility] ([place]) Comment on above: Performed By: #### L AC, CBC, PRO, MDW, GFR, DIFF, MORPH, CMP ####[address] [place], [place] [address] Monocyte, Abs Manual 1.0 10 3/mcL Normal 0.2-1.0 [facility] ([place]) Comment on above: Performed By: #### L AC, CBC, PRO, MDW, GFR, DIFF, MORPH, CMP ####[address] [place], [place] [address] Neutrophil %, Manual 36.0 % Low 37.0-80.0 On license of [facility] ([place]) Comment on above: Performed By: #### L AC, CBC, PRO, MDW, GFR, DIFF, MORPH, CMP ####[address] [place], [place] [address] Neutrophil, Abs Manual 4.1 10 3/mcL Normal 2.9-6.2 [facility] ([place]) Comment on above: Performed By: #### L AC, CBC, PRO, MDW, GFR, DIFF, MORPH, CMP ####[address] [place] [address] Nucleated RBC 0.0 /100 WBC Normal [facility] ([place]) Comment on above: Performed By: #### L AC, CBC, PRO, MDW, GFR, DIFF, MORPH, CMP ####[address] [place] [address] .Morphon 11-17-2023 Platelet Estimate Normal Normal [facility]) Comment on above: Performed By: #### L AC, CBC, PRO, MDW, GFR, DIFF, MORPH, CMP ####[address] [place] [address] .Urinalysis Microscopic (AO) on 11-17-2023 UA Bacteria 3+ /hpf Abnormal [facility] ([place]) Comment on above: Performed By: #### U A, UAMICAO ####[address] [place] [address] UA RBC 5-10 Abnormal None Seen [facility] ([place]) Comment on above: Performed By: #### U A, UAMICAO ####[address] [place] [address] UA Squam Epithelial 10-15 Abnormal None Seen [facility] ([place]) Comment on above: Performed By: #### U A, UAMICAO ####[address] [place] [address] UA WBC LOADED Abnormal None Seen [facility] ([place]) Comment on above: Performed By: #### U A, UAMICAO ####[address] [place] [address] CBCon 11-17-2023 Erythrocyte distribution width (RBC) [Ratio] 15.4 % High 11.5-14.5 [facility] ([place]) Comment on above: Performed By: #### L AC, CBC, PRO, MDW, GFR, DIFF, MORPH, CMP ####[address] [place] [phone] Hematocrit (Bld) [Volume fraction] 36.7 % Low 37.0-47.0 [facility] ([place]) Comment on above: Performed By: #### L AC, CBC, PRO, MDW, GFR, DIFF, MORPH, CMP ####[address] [place], [place] [address] Hgb 12.3 G/dL Normal 12.0-16.0 [facility] ([place]) Comment on above: Performed By: #### L AC, CBC, PRO, MDW, GFR, DIFF, MORPH, CMP ####[address] [place], [place] [address] MCH (RBC) [Entitic mass] 30.2 pg Normal 27.0-31.2 [facility] ([place] Comment on above: Performed By: #### L AC, CBC, PRO, MDW, GFR, DIFF, MORPH, CMP ####[address] [place], [place] [address] MCHC 33.5 G/dL Normal 33.0-37.0 [facility] ([place] Comment on above: Performed By: #### L AC, CBC, PRO, MDW, GFR, DIFF, MORPH, CMP ####[address] [place], [place] [address] MCV (RBC) [Entitic vol] 90.4 fL Normal 80.0-94.0 A [facility] ([place]) Comment on above: Performed By: #### L AC, CBC, PRO, MDW, GFR, DIFF, MORPH, CMP ####[address] [place], [place] [address] Platelet 172 10 3/mcL Normal 130-400 [facility] ([place]) Comment on above: Performed By: #### L AC, CBC, PRO, MDW, GFR, DIFF, MORPH, CMP ####[address] [place], [place] [address] Platelet mean volume (Bld) [Entitic vol] 7.7 fL Normal 7.4-10.4 [facility] ([place]) Comment on above: Performed By: #### L AC, CBC, PRO, MDW, GFR, DIFF, MORPH, CMP ####[address] [place], [place] [address] RBC 4.06 10 6/mcL Low 4.20-5.40 [facility] ([place]) Comment on above: Performed By: #### L AC, CBC, PRO, MDW, GFR, DIFF, MORPH, CMP ####[address] [place], [place] [address] WBC 11.5 10 3/mcL High 4.6-10.8 [facility] ([place]) Comment on above: Performed By: #### L AC, CBC, PRO, MDW, GFR, DIFF, MORPH, CMP ####[address] [place], [place] [address] CMPon 11-17-2023 Albumin Level 2.8 G/dL Low 3.5-5.0 [facility] ([place]) Comment on above: Performed By: #### L AC, CBC, PRO, MDW, GFR, DIFF, MORPH, CMP ####[address] [place], [place] [address] Albumin/Globulin [Mass ratio] 0.7 {ratio} Low 1.1-2.5 [facility] ([place] Comment on above: Performed By: #### L AC, CBC, PRO, MDW, GFR, DIFF, MORPH, CMP ####[address] [place], [place] [address] ALP [Catalytic activity/Vol] 112 U/L Normal 40-135 [facility] ([place]) Comment on above: Performed By: #### L AC, CBC, PRO, MDW, GFR, DIFF, MORPH, CMP ####[address] [place], [place] [address] ALT [Catalytic activity/Vol] 63 U/L High 14-59 [facility] ([place]) Comment on above: Performed By: #### L AC, CBC, PRO, MDW, GFR, DIFF, MORPH, CMP ####[address] [place], [place] [address] AST [Catalytic activity/Vol] 62 U/L High 10-40 [facility] ([place]) Comment on above: Performed By: #### L AC, CBC, PRO, MDW, GFR, DIFF, MORPH, CMP ####[address] [place], [place] [address] Bili Total 0.4 mg/dL Normal 0.2-1.0 [facility] ([place]) Comment on above: Result Comment: Use of this assay is not recommended for patients undergoing treatment with eltrombopag due to the potential for falsely elevated results. Performed By: #### L AC, CBC, PRO, MDW, GFR, DIFF, MORPH, CMP ####[address] [place], [place] [address] BUN/Creatinine Ratio 10 ratio Normal 7-27 On license of [facility] ([place]) Comment on above: Performed By: #### L AC, CBC, PRO, MDW, GFR, DIFF, MORPH, CMP ####[address] [place], [place] [address] Calcium [Mass/Vol] 8.0 mg/dL Low 8.4-10.2 [facility] ([place] Comment on above: Performed By: #### L AC, CBC, PRO, MDW, GFR, DIFF, MORPH, CMP ####[address] [place], [place] [address] Chloride [Moles/Vol] 99 mmol/L Normal 98-107 On license of [facility] ([place]) Comment on above: Performed By: #### L AC, CBC, PRO, MDW, GFR, DIFF, MORPH, CMP ####[address] [place], [place] [address] CO2 [Moles/Vol] 24 mmol/L Normal 22-29 [facility] ([place]) Comment on above: Performed By: #### L AC, CBC, PRO, MDW, GFR, DIFF, MORPH, CMP ####[address] [place], [place] [address] Creatinine [Mass/Vol] 1.05 mg/dL High 0.55-1.02 [facility] ([place]) Comment on above: Performed By: #### L AC, CBC, PRO, MDW, GFR, DIFF, MORPH, CMP ####[address] [place], [place] [address] Electrolyte Balance 9.0 mEq/L Normal 4.0-15.0 [facility] ([place] Comment on above: Performed By: #### L AC, CBC, PRO, MDW, GFR, DIFF, MORPH, CMP ####[address] [place], [place] [address] Globulin 4.0 G/dL Normal [facility] ([place]) Comment on above: Performed By: #### L AC, CBC, PRO, MDW, GFR, DIFF, MORPH, CMP ####[address] [place], [place] [address] Glucose [Mass/Vol] 295 mg/dL High 70-105 [facility] ([place] Comment on above: Performed By: #### L AC, CBC, PRO, MDW, GFR, DIFF, MORPH, CMP ####[address] [place], [place] [address] Potassium [Moles/Vol] 4.0 mmol/L Normal 3.5-5.1 [facility] ([place] Comment on above: Performed By: #### L AC, CBC, PRO, MDW, GFR, DIFF, MORPH, CMP ####[address] [place], [place] [address] Sodium [Moles/Vol] 132 mmol/L Low 136-145 [facility] ([place] Comment on above: Performed By: #### L AC, CBC, PRO, MDW, GFR, DIFF, MORPH, CMP ####[address] [place], [place] [address] Total Protein 6.8 G/dL Normal 6.4-8.2 [facility] ([place] Comment on above: Performed By: #### L AC, CBC, PRO, MDW, GFR, DIFF, MORPH, CMP ####[address] [place], [place] [address] Urea nitrogen [Mass/Vol] 10 mg/dL Normal 7-18 [facility] ([place] Comment on above: Performed By: #### L AC, CBC, PRO, MDW, GFR, DIFF, MORPH, CMP ####[address] [place] [address] LABORATORYOrdered By: Rebecca Farrell on 11-17-2023 Appearance (U) Slightly Cloudy [...] [facility] SS Comment on above: Interpretive Data: Ale coreas [employer] (CHEST, 1992, 102:312S-25S) recommended therapeutic range for oral anticoagulant [...] Lactic Acid Lvl 1.8 mmol/L Normal 0.4-2.0 [facility] ([place] Comment on above: Performed By: #### L AC, CBC, PRO, MDW, GFR, DIFF, MORPH, CMP ####[place] [address] [place], [place] [address] No Panel Informationon 11-16 Microscopic examination of blood, culture Culture has been received in lab and is no growth to date. Routine cultures are held for 5 days. [facility] PROon 11-17-2023 PT Coag (PPP) [Time] 11.6 s Normal 9.0-14.4 On license of [facility] ([place]) Comment on above: Performed By: #### L AC, CBC, PRO, MDW, GFR, DIFF, MORPH, CMP ####[place] [address] [place], [place] [address] PT International Ratio 1.0 Normal [facility] ([place]) Comment on above: Result Comment: [employer] (CHEST, 1992, 102:312S-25S)recommended therapeutic range for oral anticoagulant therapy is:LOW RISK: Prophylaxis of venous thrombosis INR: 2.0-3.0 Treatment of pulmonary embolism 2.0-3.0 Prevention of systemic embolism 2.0-3.0HIGH RISK: Mechanical prosthetic valves 2.5-3.5 Performed By: #### L AC, CBC, PRO, MDW, GFR, DIFF, MORPH, CMP ####[place] [place], [place] [address] UAon 11-17-2023 Color (U) Yellow Normal [facility] ([place] Comment on above: Performed By: #### U A, UAMICAO ####[address] [place], [place] [address] Glucose (U) [Mass/Vol] 500 mg/dL Abnormal Negative [facility] ([place]) Comment on above: Performed By: #### U A, UAMICAO ####[address] [place], [place] [address] Ketones Ql (U) Trace Abnormal Negative [facility] ([place]) Comment on above: Performed By: #### U A, UAMICAO ####[address] [place], [place] [address] UA Appear Slightly Cloudy Abnormal Clear [facility] ([place] Comment on above: Performed By: #### U A, UAMICAO ####[address] [place], [place] [address] UA Blood Moderate Abnormal Negative [facility] ([place] Comment on above: Performed By: #### U A, UAMICAO ####[address] [place], [place] [address] UA Leuk Est Small Abnormal Negative [facility] ([place]) Comment on above: Performed By: #### U A, UAMICAO ####[address] [place], [place] [address] UA Nitrite Positive Abnormal Negative [facility] ([place] Comment on above: Performed By: #### U A, UAMICAO ####[address] [place], [place] [address] UA pH 7.0 Normal 5.0 - 8.0 [facility] ([place] Comment on above: Performed By: #### U A, UAMICAO ####[address] [place], [place] [address] UA Protein 100 mg/dL Abnormal Negative [facility] ([place] Comment on above: Performed By: #### U A, UAMICAO ####[address] [place], [place] [address] UA Spec Grav 1.025 Normal 1.015-1.02 5 [facility] ([place] Comment on above: Performed By: #### U A, UAMICAO ####[address] [place], [place] [address] UA Specimen Type Clean Catch Normal [facility] ([place]) Comment on above: Performed By: #### U A, UAMICAO ####[address] [place], [place] [address] UA Urobilinogen 0.2 E.U./dL Normal 0.2-1.0 [facility] ([place]) Comment on above: Performed By: #### U A, UAMICAO ####[address] [place], [place] [address] Urobilinogen (U) [Mass/Vol] Negative Normal Negative [facility] ([place]) Comment on above: Performed By: #### U A, UAMICAO ####[address] [place], [place] [address] CURon 11-04-2023 CUR Normal [facility] ([place]) CURon 11-03-2023 [facility] ([place]) .GFRon 11-02-2023 GFR Non- 46 ml/min/1.73sqm Normal [facility] ([place]) Comment on above: Result Comment: GFR Population [...] By: #### B MP, GFR, MG ####[address] [place], [place] [address] GFR 56 ml/min/1.73sqm Normal [facility] ([place] Comment on above: Result Comment: GFR Population [...] #### B MP, GFR, MG ####[address] [place] [address] .Urinalysis Microscopic (AO) on 11-02-2023 UA Bacteria Trace Abnormal [facility] ([place] Comment on above: Performed By: #### U A, UAMICAO ####[address] [place] [address] UA Hyal Cast 0-5 Abnormal [facility] ([place] Comment on above: Performed By: #### U A, UAMICAO ####[address] [place] [address] UA RBC 0-5 Abnormal None Seen [facility] ([place] Comment on above: Performed By: #### U A, UAMICAO ####[address] [place] [address] UA Squam Epithelial LOADED Abnormal None Seen [facility] ([place] Comment on above: Performed By: #### U A, UAMICAO ####[address] [place] [address] UA WBC 10-15 Abnormal None Seen [facility] ([place] Comment on above: Performed By: #### U A, UAMICAO ####[address] [place], [place] [address] BMPon 11-02-2023 BUN/Creatinine Ratio 12 ratio Normal 7-27 On license of [facility] ([place] Comment on above: Performed By: #### B MP, GFR, MG ####[address] [place], [place] [address] Calcium [Mass/Vol] 8.6 mg/dL Normal 8.4-10.2 [facility] ([place] Comment on above: Performed By: #### B MP, GFR, MG ####[address] [place], [place] [address] Chloride [Moles/Vol] 102 mmol/L Normal 98-107 On license of [facility] ([place]) Comment on above: Performed By: #### B MP, GFR, MG ####[address] [place], [place] [address] CO2 [Moles/Vol] 28 mmol/L Normal 22-29 [facility] ([place] Comment on above: Performed By: #### B MP, GFR, MG ####[address] [place], [place] [address] Creatinine [Mass/Vol] 1.28 mg/dL High 0.55-1.02 [facility] ([place] Comment on above: Performed By: #### B MP, GFR, MG ####[address] [place], [place] [address] Electrolyte Balance 8.0 mEq/L Normal 4.0-15.0 [facility] ([place] Comment on above: Performed By: #### B MP, GFR, MG ####[address] [place], [place] [address] Glucose [Mass/Vol] 193 mg/dL High 70-105 [facility] ([place] Comment on above: Performed By: #### B MP, GFR, MG ####[address] [place], [place] [address] Potassium [Moles/Vol] 4.0 mmol/L Normal 3.5-5.1 [facility] ([place] Comment on above: Performed By: #### B MP, GFR, MG ####[address] [place], [place] [address] Sodium [Moles/Vol] 138 mmol/L Normal 136-145 [facility] ([place] Comment on above: Performed By: #### B MP, GFR, MG ####[place] [address] [place], [place] [address] Urea nitrogen [Mass/Vol] 16 mg/dL Normal 7-18 [facility] ([place] Comment on above: Performed By: #### B MP, GFR, MG ####[address] [place], [place] [address] LABORATORYOrdered By: Daniella Perez on 11-02-2023 Glucose [Mass/Vol] 170 mg/dL High 70 - 110 mg/dL [facility] Blood Glucose Testing Reason Routine (11/02/23 8:50 AM) [facility] Glucose [Mass/Vol] 184 mg/dL High 70 - 110 mg/dL [facility] LABORATORYOrdered By: Dl Neff on 11-02-2023 [...] 11-02-2023 Magnesium [Mass/Vol] 1.8 mg/dL Normal 1.8-2.4 On license of [facility] ([place] Comment on above: Performed By: #### B MP, GFR, MG ####[address] [place], [place] [address] UAon 11-02-2023 Color (U) Dark yellow Normal [facility] ([place] Comment on above: Performed By: #### U A, UAMICTITA ####[address] [place], [place] [address] Glucose (U) [Mass/Vol] 250 mg/dL Abnormal Negative [facility] ([place] Comment on above: Performed By: #### U A, UAMICAO ####[address] [place], [place] [address] Ketones Ql (U) Trace Abnormal Negative [facility] ([place] Comment on above: Performed By: #### U A, UAMICAO ####[address] [place], [place] [address] UA Appear Cloudy Abnormal Clear [facility] ([place] Comment on above: Performed By: #### U A, UAMICAO ####[address] [place], [place] [address] UA Blood Negative Normal Negative [facility] ([place] Comment on above: Performed By: #### U A, UAMICAO ####[address] [place], [place] [address] UA Leuk Est Negative Normal Negative [facility] ([place] Comment on above: Performed By: #### U A, UAMICAO ####[address] [place], [place] [address] UA Nitrite Negative Normal Negative [facility] ([place] Comment on above: Performed By: #### U A, UAMICAO ####[address] [place], [place] [address] UA pH 6.0 Normal 5.0 - 8.0 [facility] ([place] Comment on above: Performed By: #### U A, UAMICAO ####[address] [place], [place] [address] UA Protein 30 mg/dL Normal Negative [facility] ([place] Comment on above: Performed By: #### U A, UAMICAO ####[address] [place], [place] [address] UA Spec Grav 1.025 Normal 1.015-1.02 5 [facility] ([place] Comment on above: Performed By: #### U A, UAMICAO ####[address] [place] [address] UA Specimen Type Cook Catheter Normal On license of [facility] ([place] Comment on above: Performed By: #### U A, UAMICAO ####[address] [place], [place] [address] UA Urobilinogen 0.2 E.U./dL Normal 0.2-1.0 [facility] ([place] Comment on above: Performed By: #### U A, UAMICAO ####[address] [place], [place] [address] Urobilinogen (U) [Mass/Vol] Negative Normal Negative [facility] ([place] Comment on above: Performed By: #### U A, UAMICAO ####Sarwat [address] [place], [place] [address] .GFRon 11-01-2023 GFR 88 ml/min/1.73sqm Normal [facility] ([place]) Comment on above: Result Comment: GFR Population [...] 1C, BMP, GFR, MORPH, DIFF, CBC ####Sarwat [address] [place], [place] [address] GFR Non- 73 ml/min/1.73sqm Normal [facility] ([place]) Comment on above: Result Comment: GFR Population [...] 1C, BMP, GFR, MORPH, DIFF, CBC ####Sarwat [address] [place], [place] [address] .Manual Diffon 11-01-2023 Atypical Lymphs 4.0 % Normal 0.0-5.0 [facility] ([place]) Comment on above: Performed By: #### A 1C, BMP, GFR, MORPH, DIFF, CBC ####Sarwat [address] [place], [place] [address] Basophil %, Manual 0.0 % Normal 0.0-2.5 [facility] ([place]) Comment on above: Performed By: #### A 1C, BMP, GFR, MORPH, DIFF, CBC ####Sarwat [address] [place], [place] [address] Basophil, Abs Manual 0.0 10 3/mcL Normal 0.0-0.2 [facility] ([place]) Comment on above: Performed By: #### A 1C, BMP, GFR, MORPH, DIFF, CBC ####Sarwat [address] [place], [place] [address] Eosinophil %, Manual 0.0 % Normal 0.0-7.0 On license of [facility] ([place]) Comment on above: Performed By: #### A 1C, BMP, GFR, MORPH, DIFF, CBC ####Sarwat [address] [place], [place] [address] Eosinophil, Abs Manual 0.0 10 3/mcL Normal 0.0-0.4 [facility] ([place]) Comment on above: Performed By: #### A 1C, BMP, GFR, MORPH, DIFF, CBC ####Sarwat [address] [place], [place] [address] Lymphocyte %, Manual 34.0 % Normal 10.0-50.0 On license of [facility] ([place]) Comment on above: Performed By: #### A 1C, BMP, GFR, MORPH, DIFF, CBC ####Sarwat [address] [place], [place] [address] Lymphocyte, Abs Manual 2.2 10 3/mcL Normal 0.8-3.9 [facility] ([place]) Comment on above: Performed By: #### A 1C, BMP, GFR, MORPH, DIFF, CBC ####Sarwat [address] [place], [place] [address] Monocyte %, Manual 7.0 % Normal 1.7-13.0 [facility] ([place]) Comment on above: Performed By: #### A 1C, BMP, GFR, MORPH, DIFF, CBC ####Sarwat [address] [address] Monocyte, Abs Manual 0.4 10 3/mcL Normal 0.2-1.0 [facility] ([place]) Comment on above: Performed By: #### A 1C, BMP, GFR, MORPH, DIFF, CBC ####Sarwat [address] [address] Neutrophil %, Manual 55.0 % Normal 37.0-80.0 [facility]) Comment on above: Performed By: #### A 1C, BMP, GFR, MORPH, DIFF, CBC ####Sarwat [address] [address] Nucleated RBC 0.0 /100 WBC Normal [facility] ([place]) Comment on above: Performed By: #### A 1C, BMP, GFR, MORPH, DIFF, CBC ####Sarwat [address] [address] Neutrophil, Abs Manual 3.5 10 3/mcL Normal 2.9-6.2 [facility] ([place]) Comment on above: Performed By: #### A 1C, BMP, GFR, MORPH, DIFF, CBC ####Sarwat [address] [address] .Morphon 11-01-2023 Platelet Estimate Normal Normal [facility]) Comment on above: Performed By: #### A 1C, BMP, GFR, MORPH, DIFF, CBC ####Sarwatbouchra [address] [place], [place] [address] RBC morphology finding Nom (Bld) Normal Normal [facility] ([place]) Comment on above: Performed By: #### A 1C, BMP, GFR, MORPH, DIFF, CBC ####Sarwat [address] [place], [place] [address] A1Con 11-01-2023 HbA1c (Bld) [Mass fraction] 11.2 % High 4.3-6.4 [facility] ([place]) Comment on above: Performed By: #### A 1C, BMP, GFR, MORPH, DIFF, CBC ####Sarwat [address] [place], [place] [address] BMPon 11-01-2023 BUN/Creatinine Ratio 10 ratio Normal 7-27 On license of [facility] ([place]) Comment on above: Performed By: #### A 1C, BMP, GFR, MORPH, DIFF, CBC ####Sarwat [address] [place], [place] [address] Calcium [Mass/Vol] 8.2 mg/dL Low 8.4-10.2 [facility] ([place]) Comment on above: Performed By: #### A 1C, BMP, GFR, MORPH, DIFF, CBC ####Sarwat [address] [place], [place] [address] Chloride [Moles/Vol] 104 mmol/L Normal 98-107 On license of [facility] ([place]) Comment on above: Performed By: #### A 1C, BMP, GFR, MORPH, DIFF, CBC ####Sarwat [address] [place], [place] [address] CO2 [Moles/Vol] 26 mmol/L Normal 22-29 [facility] ([place]) Comment on above: Performed By: #### A 1C, BMP, GFR, MORPH, DIFF, CBC ####Sarwat [address] [place], [place] [address] Creatinine [Mass/Vol] 0.86 mg/dL Normal 0.55-1.02 [facility] ([place]) Comment on above: Performed By: #### A 1C, BMP, GFR, MORPH, DIFF, CBC ####Sarwat [address] [place], [place] [address] Electrolyte Balance 9.0 mEq/L Normal 4.0-15.0 [facility] ([place]) Comment on above: Performed By: #### A 1C, BMP, GFR, MORPH, DIFF, CBC ####Sarwat [address] [place], [place] [address] Glucose [Mass/Vol] 148 mg/dL High 70-105 [facility] ([place]) Comment on above: Performed By: #### A 1C, BMP, GFR, MORPH, DIFF, CBC ####Sarwat [address] [place], [place] [address] Potassium [Moles/Vol] 4.3 mmol/L Normal 3.5-5.1 [facility] ([place]) Comment on above: Performed By: #### A 1C, BMP, GFR, MORPH, DIFF, CBC ####Sarwat [address] [place], [place] [address] Sodium [Moles/Vol] 139 mmol/L Normal 136-145 [facility] ([place]) Comment on above: Performed By: #### A 1C, BMP, GFR, MORPH, DIFF, CBC ####Sarwat [address] [place], [place] [address] Urea nitrogen [Mass/Vol] 9 mg/dL Normal 7-18 [facility] ([place]) Comment on above: Performed By: #### A 1C, BMP, GFR, MORPH, DIFF, CBC ####Sarwat [address] [place], [place] [address] CBCon 11-01-2023 Erythrocyte distribution width (RBC) [Ratio] 14.8 % High 11.5-14.5 [facility] ([place]) Comment on above: Performed By: #### A 1C, BMP, GFR, MORPH, DIFF, CBC ####Sarwat [address] [place], [place] [address] Hematocrit (Bld) [Volume fraction] 37.2 % Normal 37.0-47.0 [facility] ([place]) Comment on above: Performed By: #### A 1C, BMP, GFR, MORPH, DIFF, CBC ####Sarwat [address] [place], [place] [address] Hgb 12.7 G/dL Normal 12.0-16.0 [facility] ([place]) Comment on above: Performed By: #### A 1C, BMP, GFR, MORPH, DIFF, CBC ####Sarwat [address] [place], [place] [address] MCH (RBC) [Entitic mass] 30.7 pg Normal 27.0-31.2 [facility] ([place]) Comment on above: Performed By: #### A 1C, BMP, GFR, MORPH, DIFF, CBC ####Sarwat [address] [place], [place] [address] MCHC 34.0 G/dL Normal 33.0-37.0 [facility] ([place]) Comment on above: Performed By: #### A 1C, BMP, GFR, MORPH, DIFF, CBC ####Sarwat [address] [place], [place] [address] MCV (RBC) [Entitic vol] 90.2 fL Normal 80.0-94.0 A [facility] ([place]) Comment on above: Performed By: #### A 1C, BMP, GFR, MORPH, DIFF, CBC ####Sarwat [address] [place], [place] [address] Platelet 131 10 3/mcL Normal 130-400 [facility] ([place]) Comment on above: Performed By: #### A 1C, BMP, GFR, MORPH, DIFF, CBC ####Sarwat [address] [place], [place] [address] Platelet mean volume (Bld) [Entitic vol] 8.0 fL Normal 7.4-10.4 [facility] ([place]) Comment on above: Performed By: #### A 1C, BMP, GFR, MORPH, DIFF, CBC ####Sarwat [address] [place], [place] [address] RBC 4.12 10 6/mcL Low 4.20-5.40 [facility] ([place]) Comment on above: Performed By: #### A 1C, BMP, GFR, MORPH, DIFF, CBC ####Sarwat [address] [place], [place] [address] WBC 6.5 10 3/mcL Normal 4.6-10.8 [facility] ([place]) Comment on above: Performed By: #### A 1C, BMP, GFR, MORPH, DIFF, CBC ####Sarwat [address] [place], [place] [address] CURon 11-01-2023 CUR [facility] ([place]) LABORATORYOrdered By: Jordan Shine on 11-01-2023 Blood Glucose Testing Reason Routine (11/01/23 9:38 PM) [facility] Glucose [Mass/Vol] 254 mg/dL High 70 - 110 mg/dL [facility] LABORATORYOrdered By: Coreen Escobar on 11-01-2023 Blood Glucose Testing Reason Routine (11/01/23 4:10 PM) [facility] LABORATORYOrdered By: SYSTEM SYSTEM on 11-01-2023 [...] 11-01-2023 Magnesium [Mass/Vol] 1.7 mg/dL Low 1.8-2.4 On license of [facility] ([place]) Comment on above: Performed By: #### M Mindy ####[facility] [place], [place] [address] No Panel Informationon 10-31 Culture Urine No growth to date [facility] .Auto Diffon 10-31-2023 Basophil, Absolute 0.1 10 3/mcL Normal 0.0-0.2 On license of [facility] ([place]) Comment on above: Performed By: #### G FR, ANEU, MG, CMP, CBC, ADIFF ####Sarwat [address] [place], [place] [address] Basophils/100 WBC (Bld) 0.9 % Normal 0.0-2.5 A [facility] ([place]) Comment on above: Performed By: #### G FR, ANEU, MG, CMP, CBC, ADIFF ####Sarwat [address] [place], [place] [address] Eosinophil, Absolute 0.1 10 3/mcL Normal 0.0-0.4 [facility] ([place]) Comment on above: Performed By: #### G FR, ANEU, MG, CMP, CBC, ADIFF ####Sarwat [address] [place], [place] [address] Eosinophils/100 WBC (Bld) 1.1 % Normal 0.0-7.0 [facility] ([place]) Comment on above: Performed By: #### G FR, ANEU, MG, CMP, CBC, ADIFF ####Sarwatbouchra [address] [place], [place] [address] Lymphocyte, Absolute 2.3 10 3/mcL Normal 0.8-3.9 [facility] ([place]) Comment on above: Performed By: #### G FR, ANEU, MG, CMP, CBC, ADIFF ####Sarwat [address] [place], [place] [address] Lymphocytes/100 WBC (Bld) 39.9 % Normal 10.0-50.0 [facility] ([place]) Comment on above: Performed By: #### G FR, ANEU, MG, CMP, CBC, ADIFF ####Sarwatbouchra [address] [place], [place] [address] Monocyte, Absolute 0.8 10 3/mcL Normal 0.2-1.0 On license of [facility] ([place]) Comment on above: Performed By: #### G FR, ANEU, MG, CMP, CBC, ADIFF ####Sarwatbouchra [address] [place], [place] [address] Monocytes/100 WBC (Bld) 14.4 % High 1.7-13.0 A [facility] ([place]) Comment on above: Performed By: #### G FR, ANEU, MG, CMP, CBC, ADIFF ####Sarwat [address] [place], [place] [address] Neutrophils/100 WBC (Bld) 43.7 % Normal 37.0-80.0 [facility] ([place]) Comment on above: Performed By: #### G FR, ANEU, MG, CMP, CBC, ADIFF ####Sarwatb[address]ra [address] [place], [place] [address] .GFRon 10-31-2023 GFR 86 ml/min/1.73sqm Normal [facility] ([place]) Comment on above: Result Comment: GFR Population [...] FR, ANEU, MG, CMP, CBC, ADIFF ####Sarwat [address] [place], [place] [address] GFR Non- 71 ml/min/1.73sqm Normal [facility] ([place]) Comment on above: Result Comment: GFR Population [...] ANEU, MG, CMP, CBC, ADIFF ####Sarwat [address] [place], [place] [address] GFR 68 ml/min/1.73sqm Normal [facility] ([place]) Comment on above: Result Comment: GFR Population [...] ADIFF, CMP, GFR, CBC, LIP, ANEU ####Sarwat [address] [place], [place] [address] GFR Non- 56 ml/min/1.73sqm Normal [facility] ([place]) Comment on above: Result Comment: GFR Population [...] CMP, GFR, CBC, LIP, ANEU ####Sarwat [address] [place], [place] [address] .NEUABSon 10-31-2023 Neutrophil, Absolute 2.6 10 3/mcL Low 2.9-6.2 [facility] ([place]) Comment on above: Performed By: #### G FR, ANEU, MG, CMP, CBC, ADIFF ####Sarwat [address] [place] [address] .Urinalysis Microscopic (AO) on 10-31-2023 UA Bacteria 1+ /hpf Abnormal [facility] ([place]) Comment on above: Performed By: #### P REGU, UAMICAO, UA ####Sarwat [address] [place] [address] UA RBC 0-5 Abnormal None Seen [facility] ([place]) Comment on above: Performed By: #### P REGU, UAMICAO, UA ####Sarwat [address] [place] [address] UA Squam Epithelial 0-5 Abnormal None Seen [facility] ([place]) Comment on above: Performed By: #### P REGU, UAMICAO, UA ####Sarwat [address] [place] [address] UA WBC 15-25 Abnormal None Seen [facility] ([place]) Comment on above: Performed By: #### P REGU, UAMICAO, UA ####Sarwat [address] [place] [address] UA WBC Cast 0-5 Abnormal [facility] ([place]) Comment on above: Performed By: #### P REGU, UAMICAO, UA ####Sarwat [address] [place] [id number] CBCon 10-31-2023 Erythrocyte distribution width (RBC) [Ratio] 14.7 % High 11.5-14.5 [facility] ([place]) Comment on above: Performed By: #### G FR, ANEU, MG, CMP, CBC, ADIFF ####Sarwat [address] [place], [place] [address] Hematocrit (Bld) [Volume fraction] 36.8 % Low 37.0-47.0 [facility] ([place]) Comment on above: Performed By: #### G FR, ANEU, MG, CMP, CBC, ADIFF ####Sarwat [address] [place], [place] [address] Hgb 12.4 G/dL Normal 12.0-16.0 [facility] ([place]) Comment on above: Performed By: #### G FR, ANEU, MG, CMP, CBC, ADIFF ####Sarwat [address] [place], [place] [address] MCH (RBC) [Entitic mass] 30.4 pg Normal 27.0-31.2 [facility] ([place]) Comment on above: Performed By: #### G FR, ANEU, MG, CMP, CBC, ADIFF ####Sarwat [address] [place], [place] [address] MCHC 33.8 G/dL Normal 33.0-37.0 [facility] ([place]) Comment on above: Performed By: #### G FR, ANEU, MG, CMP, CBC, ADIFF ####Sarwat [address] [place], [place] [address] MCV (RBC) [Entitic vol] 90.0 fL Normal 80.0-94.0 A [facility] ([place] Comment on above: Performed By: #### G FR, ANEU, MG, CMP, CBC, ADIFF ####Sarwat [address] [place], [place] [address] Platelet 144 10 3/mcL Normal 130-400 [facility] ([place]) Comment on above: Performed By: #### G FR, ANEU, MG, CMP, CBC, ADIFF ####Sarwat [address] [place], [place] [address] Platelet mean volume (Bld) [Entitic vol] 8.2 fL Normal 7.4-10.4 [facility] ([place]) Comment on above: Performed By: #### G FR, ANEU, MG, CMP, CBC, ADIFF ####Sarwat [address] [place], [place] [address] RBC 4.09 10 6/mcL Low 4.20-5.40 [facility] ([place]) Comment on above: Performed By: #### G FR, ANEU, MG, CMP, CBC, ADIFF ####Sarwat [address] [place], [place] [address] WBC 5.9 10 3/mcL Normal 4.6-10.8 [facility] ([place]) Comment on above: Performed By: #### G FR, ANEU, MG, CMP, CBC, ADIFF ####Sarwat [address] [place], [place] [address] CMPon 10-31-2023 Albumin Level 3.2 G/dL Low 3.5-5.0 [facility] ([place]) Comment on above: Performed By: #### G FR, ANEU, MG, CMP, CBC, ADIFF ####Sarwat [address] [place], [place] [address] Albumin/Globulin [Mass ratio] 0.9 {ratio} Low 1.1-2.5 [facility] ([place]) Comment on above: Performed By: #### G FR, ANEU, MG, CMP, CBC, ADIFF ####Sarwat [address] [place], [place] [address] ALP [Catalytic activity/Vol] 75 U/L Normal 40-135 [facility] ([place]) Comment on above: Performed By: #### G FR, ANEU, MG, CMP, CBC, ADIFF ####Sarwat [address] [place], [place] [address] ALT [Catalytic activity/Vol] 80 U/L High 14-59 [facility] ([place]) Comment on above: Performed By: #### G FR, ANEU, MG, CMP, CBC, ADIFF ####Sarwat [address] [place], [place] [address] AST [Catalytic activity/Vol] 34 U/L Normal 10-40 [facility] ([place]) Comment on above: Performed By: #### G FR, ANEU, MG, CMP, CBC, ADIFF ####Sarwat [address] [place], [place] [address] Bili Total 0.3 mg/dL Normal 0.2-1.0 [facility] ([place]) Comment on above: Result Comment: Use of this assay is not recommended for patients undergoing treatment with eltrombopag due to the potential for falsely elevated results. Performed By: #### G FR, ANEU, MG, CMP, CBC, ADIFF ####Sarwat [address] [place], [place] [address] BUN/Creatinine Ratio 14 ratio Normal 7-27 On license of [facility] ([place]) Comment on above: Performed By: #### G FR, ANEU, MG, CMP, CBC, ADIFF ####Sarwat [address] [place], [place] [address] Calcium [Mass/Vol] 8.3 mg/dL Low 8.4-10.2 [facility] ([place]) Comment on above: Performed By: #### G FR, ANEU, MG, CMP, CBC, ADIFF ####Sarwat [address] [place], [place] [address] Chloride [Moles/Vol] 104 mmol/L Normal 98-107 On license of [facility] ([place]) Comment on above: Performed By: #### G FR, ANEU, MG, CMP, CBC, ADIFF ####Sarwat [address] [place], [place] [address] CO2 [Moles/Vol] 25 mmol/L Normal 22-29 [facility] ([place]) Comment on above: Performed By: #### G FR, ANEU, MG, CMP, CBC, ADIFF ####Sarwat [address] [place], [place] [address] Creatinine [Mass/Vol] 0.88 mg/dL Normal 0.55-1.02 [facility] ([place]) Comment on above: Performed By: #### G FR, ANEU, MG, CMP, CBC, ADIFF ####Sarwat [address] [place], [place] [address] Electrolyte Balance 9.0 mEq/L Normal 4.0-15.0 [facility] ([place]) Comment on above: Performed By: #### G FR, ANEU, MG, CMP, CBC, ADIFF ####Sarwat [address] [place], [place] [address] Globulin 3.7 G/dL Normal [facility] ([place]) Comment on above: Performed By: #### G FR, ANEU, MG, CMP, CBC, ADIFF ####Sarwat [address] [place], [place] [address] Glucose [Mass/Vol] 202 mg/dL High 70-105 [facility] ([place]) Comment on above: Performed By: #### G FR, ANEU, MG, CMP, CBC, ADIFF ####Sarwat [address] [place], [place] [address] Potassium [Moles/Vol] 4.2 mmol/L Normal 3.5-5.1 [facility] ([place]) Comment on above: Performed By: #### G FR, ANEU, MG, CMP, CBC, ADIFF ####Sarwat [address] [place], [place] [address] Sodium [Moles/Vol] 138 mmol/L Normal 136-145 [facility] ([place] Comment on above: Performed By: #### G FR, ANEU, MG, CMP, CBC, ADIFF ####Sarwat [address] [place], [place] [address] Total Protein 6.9 G/dL Normal 6.4-8.2 [facility] ([place]) Comment on above: Performed By: #### G FR, ANEU, MG, CMP, CBC, ADIFF ####Sarwat [address] [place], [place] [address] Urea nitrogen [Mass/Vol] 12 mg/dL Normal 7-18 [facility] ([place]) Comment on above: Performed By: #### G FR, ANEU, MG, CMP, CBC, ADIFF ####Sarwat [address] [place], [place] [address] Calcium [Mass/Vol] 8.8 mg/dL Normal 8.4-10.2 [facility] ([place] Comment on above: Performed By: #### M DW, ADIFF, CMP, GFR, CBC, LIP, ANEU ####Sarwat [address] [place], [place] [address] Albumin Level 3.5 G/dL Normal 3.5-5.0 [facility] ([place]) Comment on above: Performed By: #### M DW, ADIFF, CMP, GFR, CBC, LIP, ANEU ####Sarwat [address] [place], [place] [address] Albumin/Globulin [Mass ratio] 0.9 {ratio} Low 1.1-2.5 [facility] ([place]) Comment on above: Performed By: #### M DW, ADIFF, CMP, GFR, CBC, LIP, ANEU ####Sarwat [address] [place], [place] [address] ALP [Catalytic activity/Vol] 94 U/L Normal 40-135 [facility] ([place]) Comment on above: Performed By: #### M DW, ADIFF, CMP, GFR, CBC, LIP, ANEU ####Sarwat [address] [place], [place] [address] ALT [Catalytic activity/Vol] 90 U/L High 14-59 [facility] ([place]) Comment on above: Performed By: #### M DW, ADIFF, CMP, GFR, CBC, LIP, ANEU ####Sarwat [address] [place], [place] [address] AST [Catalytic activity/Vol] 42 U/L High 10-40 [facility] ([place]) Comment on above: Performed By: #### M DW, ADIFF, CMP, GFR, CBC, LIP, ANEU ####Sarwat [address] [place], [place] [address] Bili Total 0.3 mg/dL Normal 0.2-1.0 [facility] ([place]) Comment on above: Result Comment: Use of this assay is not recommended for patients undergoing treatment with eltrombopag due to the potential for falsely elevated results. Performed By: #### M DW, ADIFF, CMP, GFR, CBC, LIP, ANEU ####Sarwat [address] [place], [place] [address] BUN/Creatinine Ratio 13 ratio Normal 7-27 On license of [facility] ([place]) Comment on above: Performed By: #### M DW, ADIFF, CMP, GFR, CBC, LIP, ANEU ####Sarwat [address] [place], [place] [address] Chloride [Moles/Vol] 101 mmol/L Normal 98-107 On license of [facility] ([place]) Comment on above: Performed By: #### M DW, ADIFF, CMP, GFR, CBC, LIP, ANEU ####Sarwat [address] [place], [place] [address] CO2 [Moles/Vol] 26 mmol/L Normal 22-29 [facility] ([place]) Comment on above: Performed By: #### M DW, ADIFF, CMP, GFR, CBC, LIP, ANEU ####Sarwat [address] [place], [place] [address] Creatinine [Mass/Vol] 1.08 mg/dL High 0.55-1.02 [facility] ([place]) Comment on above: Performed By: #### M DW, ADIFF, CMP, GFR, CBC, LIP, ANEU ####Sarwat [address] [place], [place] [address] Electrolyte Balance 10.0 mEq/L Normal 4.0-15.0 [facility] ([place]) Comment on above: Performed By: #### M DW, ADIFF, CMP, GFR, CBC, LIP, ANEU ####Sarwat [address] [place], [place] [address] Globulin 3.9 G/dL Normal [facility] ([place]) Comment on above: Performed By: #### M DW, ADIFF, CMP, GFR, CBC, LIP, ANEU ####[place] [address] [place], [place] [address] Glucose [Mass/Vol] 282 mg/dL High 70-105 [facility] ([place] Comment on above: Performed By: #### M DW, ADIFF, CMP, GFR, CBC, LIP, ANEU ####Sarwat [address] [place], [place] [address] Potassium [Moles/Vol] 3.9 mmol/L Normal 3.5-5.1 [facility] ([place]) Comment on above: Performed By: #### M DW, ADIFF, CMP, GFR, CBC, LIP, ANEU ####[address] [place], [place] [address] Sodium [Moles/Vol] 137 mmol/L Normal 136-145 [facility] ([place] Comment on above: Performed By: #### M DW, ADIFF, CMP, GFR, CBC, LIP, ANEU ####[address] [place], [place] [address] Total Protein 7.4 G/dL Normal 6.4-8.2 [facility] ([place]) Comment on above: Performed By: #### M DW, ADIFF, CMP, GFR, CBC, LIP, ANEU ####[address] [place], [place] [address] Urea nitrogen [Mass/Vol] 14 mg/dL Normal 7-18 [facility] ([place] Comment on above: Performed By: #### M DW, ADIFF, CMP, GFR, CBC, LIP, ANEU ####Sarwat [address] [place], [place] [address] CT ABDOMEN/PELVIS W/O CONTRA STon 10-31-2023 CT ABDOMEN/PELVIS W/O CONTRAST Normal [facility] ([place]) LABORATORYOrdered By: Maday Antonio on 10-31-2023 Blood Glucose Interventions Administered agent to decrease blood sugar (10/31/23 11:49 AM) [facility] Blood Glucose Interventions Administered agent to decrease blood sugar (10/31/23 8:04 AM) [facility] LABORATORYOrdered By: SYSTEM SYSTEM on 10-31-2023 [...] 10-31-2023 Lipase Level 70 U/L Normal 16-77 [facility] ([place]) Comment on above: Performed By: #### M DW, ADIFF, CMP, GFR, CBC, LIP, ANEU ###[place] [address] [place], [place] [address] MGon 10-31-2023 Magnesium [Mass/Vol] 1.6 mg/dL Low 1.8-2.4 On license of [facility] ([place]) Comment on above: Performed By: #### G FR, ANEU, MG, CMP, CBC, ADIFF ####Sarwat [address] [place], [place] [address] UAon 10-31-2023 Color (U) Yellow Normal [facility] ([place]) Comment on above: Performed By: #### P REGU, UAMICAO, UA ####Sarwat [address] [place], [place] [address] Glucose (U) [Mass/Vol] mg/dL Abnormal Negative [facility] ([place]) Comment on above: Performed By: #### P REGU, UAMICAO, UA ####Sarwat [address] [place] [id number] Ketones Ql (U) Negative Normal Negative [facility] ([place] Comment on above: Performed By: #### P REGU, UAMICAO, UA ####Sarwat [address] [place] [address] UA Appear Slightly Cloudy Abnormal Clear [facility] ([place] Comment on above: Performed By: #### P REGU, UAMICAO, UA ####Sarwat [address] [place] [address] UA Blood Trace Abnormal Negative [facility] ([place] Comment on above: Performed By: #### P REGU, UAMICAO, UA ####Sarwat [address] [place] [address] UA Leuk Est Small Abnormal Negative [facility] ([place] Comment on above: Performed By: #### P REGU, UAMICAO, UA ####Sar[address] [place], [place] [address] UA Nitrite Negative Normal Negative [facility] ([place] Comment on above: Performed By: #### P REGU, UAMICAO, UA ####[place] [address] [place] [id number] UA pH 7.0 Normal 5.0 - 8.0 [facility] ([place] Comment on above: Performed By: #### P REGU, UAMICAO, UA ####Sarwat [address] [place] [id number] UA Protein 100 mg/dL Abnormal Negative [facility] ([place] Comment on above: Performed By: #### P REGU, UAMICAO, UA ####Sar[place] [address] [place] [address] UA Spec Grav 1.025 Normal 1.015-1.02 5 [facility] ([place] Comment on above: Performed By: #### P REGU, UAMICAO, UA ####[place] [address] [place], [place] [address] UA Specimen Type Clean Catch Normal [facility] ([place] Comment on above: Performed By: #### P REGU, UAMICAO, UA ####Sarwat [address] [place], [place] [address] UA Urobilinogen 0.2 E.U./dL Normal 0.2-1.0 [facility] ([place]) Comment on above: Performed By: #### P REGU, UAMICAO, UA ####Sarwat [address] [place], [place] [address] Urobilinogen (U) [Mass/Vol] Negative Normal Negative [facility] ([place]) Comment on above: Performed By: #### P REGU, UAMICAO, UA ####Sarwat [address] [place], [place] [address] .Auto Diffon 10-30-2023 Basophil, Absolute 0.0 10 3/mcL Normal 0.0-0.2 On license of [facility] ([place]) Comment on above: Performed By: #### M DW, ADIFF, CMP, GFR, CBC, LIP, ANEU ####Sarwat [address] [place], [place] [address] Basophils/100 WBC (Bld) 0.7 % Normal 0.0-2.5 A [facility] ([place]) Comment on above: Performed By: #### M DW, ADIFF, CMP, GFR, CBC, LIP, ANEU ####Sarwat [address] [place], [place] [address] Eosinophil, Absolute 0.1 10 3/mcL Normal 0.0-0.4 [facility] ([place]) Comment on above: Performed By: #### M DW, ADIFF, CMP, GFR, CBC, LIP, ANEU ####[address] [place], [place] [address] Eosinophils/100 WBC (Bld) 1.3 % Normal 0.0-7.0 [facility] ([place]) Comment on above: Performed By: #### M DW, ADIFF, CMP, GFR, CBC, LIP, ANEU ####[address]wat [address] [place], [place] [address] Lymphocyte, Absolute 2.6 10 3/mcL Normal 0.8-3.9 [facility] ([place]) Comment on above: Performed By: #### M DW, ADIFF, CMP, GFR, CBC, LIP, ANEU ####[address] [place], [place] [address] Lymphocytes/100 WBC (Bld) 39.1 % Normal 10.0-50.0 [facility] ([place]) Comment on above: Performed By: #### M DW, ADIFF, CMP, GFR, CBC, LIP, ANEU ####[address] [place], [place] [address] Monocyte, Absolute 0.7 10 3/mcL Normal 0.2-1.0 On license of [facility] ([place]) Comment on above: Performed By: #### M DW, ADIFF, CMP, GFR, CBC, LIP, ANEU ####[address] [place], [place] [address] Monocytes/100 WBC (Bld) 11.2 % Normal 1.7-13.0 [facility] ([place]) Comment on above: Performed By: #### M DW, ADIFF, CMP, GFR, CBC, LIP, ANEU ####[address] [place], [place] [address] Neutrophils/100 WBC (Bld) 47.7 % Normal 37.0-80.0 [facility] ([place]) Comment on above: Performed By: #### M DW, ADIFF, CMP, GFR, CBC, LIP, ANEU ####[address] [place], [place] [address] .MDWon 10-30-2023 Monocyte Distribution Width 22.58 High 0.00-20.00 [facility] ([place]) Comment on above: Result Comment: For adults in ED, MDW>20.0 may be associated with a higher risk of sepsis during the first 12hrs of hospital admission Performed By: #### M DW, ADIFF, CMP, GFR, CBC, LIP, ANEU ####[address] [place], [place] [address] .NEUABSon 10-30-2023 Neutrophil, Absolute 3.2 10 3/mcL Normal 2.9-6.2 [facility] ([place]) Comment on above: Performed By: #### M DW, ADIFF, CMP, GFR, CBC, LIP, ANEU ####[address] [place], [place] [address] CBCon 10-30-2023 Erythrocyte distribution width (RBC) [Ratio] 14.5 % Normal 11.5-14.5 [facility] ([place]) Comment on above: Performed By: #### M DW, ADIFF, CMP, GFR, CBC, LIP, ANEU ####[address] [place] [id number] Hematocrit (Bld) [Volume fraction] 39.4 % Normal 37.0-47.0 [facility] ([place]) Comment on above: Performed By: #### M DW, ADIFF, CMP, GFR, CBC, LIP, ANEU ####[address] [place] [id number] Hgb 13.5 G/dL Normal 12.0-16.0 [facility] ([place]) Comment on above: Performed By: #### M DW, ADIFF, CMP, GFR, CBC, LIP, ANEU ####[place] [address] [place] [id number] MCH (RBC) [Entitic mass] 30.9 pg Normal 27.0-31.2 [facility] ([place]) Comment on above: Performed By: #### M DW, ADIFF, CMP, GFR, CBC, LIP, ANEU ####[address] [place] [id number] MCHC 34.3 G/dL Normal 33.0-37.0 [facility] ([place]) Comment on above: Performed By: #### M DW, ADIFF, CMP, GFR, CBC, LIP, ANEU ####[address] [place] [id number] MCV (RBC) [Entitic vol] 90.0 fL Normal 80.0-94.0 A [facility] ([place]) Comment on above: Performed By: #### M DW, ADIFF, CMP, GFR, CBC, LIP, ANEU ####[address] [place], [place] [address] Platelet 160 10 3/mcL Normal 130-400 [facility] ([place]) Comment on above: Performed By: #### M DW, ADIFF, CMP, GFR, CBC, LIP, ANEU ####[address] [place], [place] [address] Platelet mean volume (Bld) [Entitic vol] 7.9 fL Normal 7.4-10.4 [facility] ([place]) Comment on above: Performed By: #### M DW, ADIFF, CMP, GFR, CBC, LIP, ANEU ####[address] [place], [place] [address] RBC 4.38 10 6/mcL Normal 4.20-5.40 [facility] ([place]) Comment on above: Performed By: #### M DW, ADIFF, CMP, GFR, CBC, LIP, ANEU ####[address] [place], [place] [address] WBC 6.6 10 3/mcL Normal 4.6-10.8 [facility] ([place]) Comment on above: Performed By: #### M DW, ADIFF, CMP, GFR, CBC, LIP, ANEU ####[address] [place], [place] [address] LABORATORYOrdered By: Trish Murphy on 10-30-2023 Appearance [...] Probable Contamination. Suggest recollection if clinically indicated. [facility] PREGUon 10-30-2023 HCG ( test) Ql (U) Negative Normal [facility] ([place]) Comment on above: Performed By: #### JOSI MIRELES UA ####[address] [place], [place] [address] test (u) int Not detected Invalid Interpretation Code [facility] ([place]) Comment on above: Performed By: #### JOSI MIRELES UA ####[place] [address] [place], [place] [address] CBC W Auto Differential pane l (Bld)on 10-11-2023 Basophils (Bld) [#/Vol] 0.10 10*3/uL [facility] Basophils/100 WBC (Bld) 0.7 % C [facility] Differential cell count method Nom (Bld) Auto [facility] Eosinophils (Bld) [#/Vol] 0.23 10*3/uL [facility] Eosinophils/100 WBC (Bld) 1.7 % [facility] Erythrocyte distribution width (RBC) [Ratio] 13.6 % 11.5 - 15.0 % [facility] Hematocrit (Bld) [Volume fraction] 43.9 % 36.0 - 46.0 % [facility] Hemoglobin (Bld) [Mass/Vol] 14.4 g/dL 11.5 - 15.5 g/dL [facility] Immature granulocytes (Bld) [#/Vol] 0.18 10*3/uL High [facility] Immature granulocytes/100 WBC (Bld) 1.3 % [facility] Interpretation and review of laboratory results Abnormal [facility] Lymphocytes (Bld) [#/Vol] 3.56 10*3/uL [facility] Lymphocytes/100 WBC (Bld) 26.5 % [facility] MCH (RBC) [Entitic mass] 30.1 pg 26.0 - 34.0 pg [facility] MCHC (RBC) [Mass/Vol] 32.8 g/dL 30.5 - 36.0 g/dL [facility] MCV (RBC) [Entitic vol] 91.8 fL 80.0 - 100.0 fL [facility] Monocytes (Bld) [#/Vol] 1.22 10*3/uL High [facility] Monocytes/100 WBC (Bld) 9.1 % C [facility] Neutrophils (Bld) [#/Vol] 8.16 10*3/uL High [facility] Neutrophils/100 WBC (Bld) 60.7 % [facility] Nucleated RBC (Bld) [#/Vol] [facility] Nucleated RBC/100 WBC (Bld) [Ratio] 0.0 % /100 WBC [facility] Platelet mean volume (Bld) [Entitic vol] 11.6 fL 9.0 - 12.7 fL [facility] Platelets (Bld) [#/Vol] 261 10*3/uL [facility] RBC (Bld) [#/Vol] 4.78 10*6/uL 3.90 - 5.20 m/uL [facility] WBC (Bld) [#/Vol] 13.45 10*3/uL High [facility] Absolute lymphocyte countOrd ered By: Kevin Barcenas on 10-07-2023 Lymphocytes Auto (Unsp spec) [#/Vol] 2.95 10*3/uL 0.83-4.51 [facility] Automated lymphocyte count a s percentage of total leukocytesOrdered By: Kevin Barcenas on 10-07-2023 Lymphocytes/100 WBC Auto (Unsp spec) 26.2 % 19-41 [facility] Basophil percentageOrdered B y: Kevin Barcenas on 10-07-2023 Basophil percentage 50-100 SEEN /hpf 0-5 [facility] Basophils/100 WBC (Bld) 0.7 % 0-1 [facility] Chloride [Moles/Vol] 105 mmol/L 98-107 [facility] Eosinophils/100 WBC (Bld) 1.2 % 0-5 [facility] Glucose [Mass/Vol] 267 mg/dL 74-106 [facility] Comment on above: Glucose result great er than or equal to 200 mg/dLsuggests DIABETES MELLITUS per A.D.A. criteria. Hemoglobin (Bld) [Mass/Vol] 13.9 g/dL 12.0-15.0 [facility] Monocytes/100 WBC (Bld) 8.4 % 0-10 [facility] Neutrophils (Bld) [#/Vol] 7.0 10*3/uL 2.0-7.7 [facility] Neutrophils/100 WBC (Bld) 62.2 % 47-70 [facility] Potassium [Moles/Vol] 4.0 mmol/L 3.5-5.1 [facility] Sodium [Moles/Vol] 134 mmol/L 136-145 [facility] WBC (Bld) [#/Vol] 11.3 10*3/uL 4.4-11.0 [facility] Bilirubin Test strip Ql (U)O rdered By: Kevin Barcenas on 10-07-2023 Bilirubin Ql (U) Negative Negative [facility] Determination of erythrocyte mean corpuscular volume (MCV)Ordered By: Kevin Barcenas on 10-07-2023 MCV (RBC) [Entitic vol] 89.5 fL 81-99 [facility] Erythrocyte distribution wid th ratioOrdered By: Kevin Barcenas on 10-07-2023 Erythrocyte distribution width (RBC) [Ratio] 13.5 % 11.6-14.6 [facility] Erythrocyte distribution wid th standard deviationOrdered By: Kevin Barcenas on 10-07-2023 Erythrocyte distribution width (RBC) [Entitic vol] 43.9 fL 35.1-43.9 [facility] Hematocrit Auto (Bld) [Volum e fraction]Ordered By: Kevin Barcenas on 10-07-2023 Hematocrit (Bld) [Volume fraction] 41.7 % 37-47 [facility] Immature granulocytes/100 WB C Auto (Bld)Ordered By: Kevin Barcenas on 10-07-2023 Immature granulocytes/100 WBC (Bld) 1.300 % 0.0-0.9 [facility] Comment on above: IG% - Immature Granu locytes (promyelocytes, myelocytes and metamyelocytes) > 1% indicates that a LEFT SHIFT is Present. Ketones Test strip Ql (U)Ord ered By: Kevin Barcenas on 10-07-2023 Ketones Ql (U) Negative Negative [facility] Laboratory - Chemistry and C hemistry - challengeOrdered By: Kevin Barcenas on 10-07-2023 CO2 [Moles/Vol] 23.0 mmol/L 21.0-32.0 [facility] Urea nitrogen/Creatinine [Mass ratio] 21.7 mg/mg 10-20 [facility] Laboratory - Hematology and Cell countsOrdered By: Kevin Barcenas on 10-07-2023 MCH (RBC) [Entitic mass] 29.8 pg 27.0-32.0 [facility] MCHC (RBC) [Mass/Vol] 33.3 g/dL 32-36 [facility] Nucleated RBC/100 WBC (Bld) [Ratio] 0 % 0-5 [facility] Platelet mean volume (Bld) [Entitic vol] 10.4 fL 6.2-12.0 [facility] Platelets (Bld) [#/Vol] 225 10*3/uL 150-450 [facility] Mucus LM Ql (Urine sed)Order ed By: Kevin Barcenas on 10-07-2023 Mucus Ql (Urine sed) 0 SEEN /hpf [facility] Nitrite Test strip Ql (U)Ord ered By: Kevin Barcenas on 10-07-2023 Nitrite Ql (U) Negative Negative [facility] No Panel InformationOrdered By: Kevin Barcenas on 10-07-2023 Urine RBC 5-10 SEEN /hpf 0-5 [facility] Estimated Creatinine Clearance Calc 96.23 ml/min [facility] Estimated GFR (MDRD) Amer 97 mL/min >60 [facility] Comment on above: GFR Calc Estimated GFR (MDRD) Non-Af Amer 80 mL/min >60 [facility] Comment on above: Non- GFR Calc Protein Test strip Ql (U)Ord ered By: Kevin Barcenas on 10-07-2023 Protein Ql (U) 100 mg/dl Negative [facility] RBC Auto (Bld) [#/Vol]Ordere d By: Kevin Barcenas on 10-07-2023 RBC (Bld) [#/Vol] 4.66 10*6/uL 4.2-5.4 [facility] Serum or plasma calcium thi urement (mass/volume)Ordered By: Kevin Barcenas on 10-07-2023 Calcium [Mass/Vol] 9.1 mg/dL 8.5-10.1 [facility] Serum or plasma choriogonado tropin detectionOrdered By: Kevin Barcenas on 10-07-2023 HCG ( test) Ql Negative [facility] Serum or plasma creatinine m easurement (mass/volume)Ordered By: Kevin Barcenas on 10-07-2023 Creatinine [Mass/Vol] 0.83 mg/dL 0.55-1.02 [facility] Comment on above: The validity of the calculated GFR & GFRAA in patients over 70 years has not been determined. Clinical correlation is essential. Serum or plasma urea nitroge n measurement (mass/volume)Ordered By: Kevin Barcenas on 10-07-2023 Urea nitrogen [Mass/Vol] 18 mg/dL 7-18 [facility] Squamous epithelial cells de tection in urine sediment by light microscopyOrdered By: Kevin Barcenas on 10-07-2023 Epithelial cells.squamous LM Ql (Urine sed) 10-25 SEEN /hpf 5-10 [facility] Thin prep Papanicolaou smear with manual screeningOrdered By: Kevin Barcenas on 10-07-2023 Thin prep Papanicolaou smear with manual screening 6 5-15 [facility] Urine blood detectionOrdered By: Kevin Barcenas on 10-07-2023 RBC Ql (U) 50 /ul Negative [facility] Urine clarityOrdered By: Nigel Barcenas on 10-07-2023 Clarity (U) Cloudy Clear [facility] Urine color determinationOrd ered By: Kevin Barcenas on 10-07-2023 Color (U) Yellow Yellow [facility] Urine glucose detectionOrder ed By: Kevin Barcenas on 10-07-2023 Glucose Ql (U) 1000 mg/dl Normal [facility] Urine leukocyte esterase det ection by dipstickOrdered By: Kevin Barcenas on 10-07-2023 Leukocyte esterase Test strip Ql (U) 500 /ul Negative [facility] Urine pHOrdered By: Kevin giron on 10-07-2023 pH (U) 6.5 [pH] 5.0 - 8.0 [facility] Urine sediment bacteria coun t by microscopy (number/high power field)Ordered By: Kevin Barcenas on 10-07-2023 Bacteria LM.HPF (Urine sed) [#/Area] 4 /[HPF] None Seen [facility] Urine specific gravity measu rementOrdered By: Kevin Barcenas on 10-07-2023 Specific gravity (U) [Rel density] 1.020 1.002-1.03 0 [facility] Urine urobilinogen measureme ntOrdered By: Kevin Barcenas on 10-07-2023 Urobilinogen Ql (U) Normal mg/dl Normal [facility] .Auto Diffon 09-24-2023 Basophil, Absolute 0.1 10 3/mcL Normal 0.0-0.2 On license of [facility] ([place]) Comment on above: Performed By: #### C MP, CBC, GFR, MDW, JENNIFER, BECKY, ANEU ####[address] [address] [place], [place] [address] Basophils/100 WBC (Bld) 1.0 % Normal 0.0-2.5 A [facility] ([place]) Comment on above: Performed By: #### C MP, CBC, GFR, MDW, LIP, BECKY, ANEU ####[address] [address] [place], [place] [address] Eosinophil, Absolute 0.2 10 3/mcL Normal 0.0-0.4 [facility] ([place]) Comment on above: Performed By: #### C MP, CBC, GFR, MDW, LIP, FRANCISCOIFF, ANEU ####[address] [place], [place] [address] Eosinophils/100 WBC (Bld) 1.3 % Normal 0.0-7.0 [facility] ([place]) Comment on above: Performed By: #### C MP, CBC, GFR, MDW, LIP, ADIFF, ANEU ####[place] [address] [place], [place] [address] Lymphocyte, Absolute 3.8 10 3/mcL Normal 0.8-3.9 [facility] ([place]) Comment on above: Performed By: #### C MP, CBC, GFR, MDW, LIP, ADIFF, ANEU ####[address] [place], [place] [address] Lymphocytes/100 WBC (Bld) 27.3 % Normal 10.0-50.0 [facility] ([place]) Comment on above: Performed By: #### C MP, CBC, GFR, MDW, LIP, ADIFF, ANEU ####[place] [address] [place], [place] [address] Monocyte, Absolute 1.5 10 3/mcL High 0.2-1.0 On license of [facility] ([place]) Comment on above: Performed By: #### C MP, CBC, GFR, MDW, LIP, ADIFF, ANEU ####[place] [address] [place], [place] [address] Monocytes/100 WBC (Bld) 10.7 % Normal 1.7-13.0 [facility] ([place]) Comment on above: Performed By: #### C MP, CBC, GFR, MDW, LIP, ADIFF, ANEU ####[place] [address] [place], [place] [address] Neutrophils/100 WBC (Bld) 59.7 % Normal 37.0-80.0 [facility] ([place] Comment on above: Performed By: #### C MP, CBC, GFR, MDW, LIP, ADIFF, ANEU ####[place] [address] [place], [place] [address] .GFRon 09-24-2023 GFR 74 ml/min/1.73sqm Normal [facility] ([place]) Comment on above: Result Comment: GFR Population [...] GFR, MDW, LIP, ADIFF, ANEU ####[address] [address] [place], [place] [address] GFR Non- 61 ml/min/1.73sqm Normal [facility] ([place]) Comment on above: Result Comment: GFR Population [...] CBC, GFR, MDW, LIP, ADIFF, ANEU ####[place] [address] [place], [place] [address] .MDWon 09-24-2023 Monocyte Distribution Width 19.73 Normal 0.00-20.00 [facility] ([place]) Comment on above: Result Comment: For ED adult patients suspected of sepsis, MDW<=20.0 does not rule out sepsis or risk of sepsis Performed By: #### C MP, CBC, GFR, MDW, LIP, ADIFF, ANEU ####[place] [address] [place], [place] [address] .NEUABSon 09-24-2023 Neutrophil, Absolute 8.2 10 3/mcL High 2.9-6.2 [facility] ([place]) Comment on above: Performed By: #### C MP, CBC, GFR, MDW, JENNIFER, BECKY, ANEU ####[address] [place], [place] [address] .Urinalysis Microscopic (AO) on 09-24-2023 UA Bacteria Trace Abnormal [facility] ([place]) Comment on above: Performed By: #### U A, UAMICAO, PREGU ####[address] [address] [place], [place] [address] UA RBC None Seen Normal None Seen [facility] ([place]) Comment on above: Performed By: #### U A, UAMICAO, PREGU ####[place] [address] [place] [address] UA Squam Epithelial 0-5 Abnormal None Seen [facility] ([place]) Comment on above: Performed By: #### U A, UAMICAO, PREGU ####[address] [place] [address] UA WBC 0-5 Abnormal None Seen [facility] ([place]) Comment on above: Performed By: #### U A, UAMICAO, PREGU ####[place] [address] [place], [place] [address] CBCon 09-24-2023 Erythrocyte distribution width (RBC) [Ratio] 14.6 % High 11.5-14.5 [facility] ([place]) Comment on above: Performed By: #### C MP, CBC, GFR, MDW, JENNIFER, BECKY, REJI ####[address] [place], [place] [address] Hematocrit (Bld) [Volume fraction] 40.0 % Normal 37.0-47.0 [facility] ([place]) Comment on above: Performed By: #### C MP, CBC, GFR, MDW, LIP, ADLAURO, ANEU ####[address] [place], [place] [address] Hgb 13.7 G/dL Normal 12.0-16.0 [facility] ([place]) Comment on above: Performed By: #### C MP, CBC, GFR, MDW, LIP, ADIFF, ANEU ####[place] [address] [place], [place] [address] MCH (RBC) [Entitic mass] 30.2 pg Normal 27.0-31.2 [facility] ([place]) Comment on above: Performed By: #### C MP, CBC, GFR, MDW, LIP, ADIFF, ANEU ####[address] [place], [place] [address] MCHC 34.1 G/dL Normal 33.0-37.0 [facility] ([place]) Comment on above: Performed By: #### C MP, CBC, GFR, MDW, LIP, ADIFF, ANEU ####[address] [place], [place] [address] MCV (RBC) [Entitic vol] 88.6 fL Normal 80.0-94.0 A [facility] ([place]) Comment on above: Performed By: #### C MP, CBC, GFR, MDW, LIP, ADIFF, ANEU ####[address] [place], [place] [address] Platelet 234 10 3/mcL Normal 130-400 [facility] ([place]) Comment on above: Performed By: #### C MP, CBC, GFR, MDW, LIP, ADIFF, ANEU ####[place] [address] [place], [place] [address] Platelet mean volume (Bld) [Entitic vol] 8.6 fL Normal 7.4-10.4 [facility] ([place]) Comment on above: Performed By: #### C MP, CBC, GFR, MDW, LIP, ADIFF, ANEU ####[address] [address] [place], [place] [address] RBC 4.52 10 6/mcL Normal 4.20-5.40 [facility] ([place]) Comment on above: Performed By: #### C MP, CBC, GFR, MDW, LIP, ADIFF, ANEU ####[address] [address] [place], [place] [address] WBC 13.8 10 3/mcL High 4.6-10.8 [facility] ([place]) Comment on above: Performed By: #### C MP, CBC, GFR, MDW, LIP, ADIFF, ANEU ####[place] [address] [place], [place] [address] CMPon 09-24-2023 Albumin Level 3.9 G/dL Normal 3.5-5.0 [facility] ([place]) Comment on above: Performed By: #### C MP, CBC, GFR, MDW, LIP, ADIFF, ANEU ####[address] [place], [place] [address] Albumin/Globulin [Mass ratio] 1.0 {ratio} Low 1.1-2.5 [facility] ([place]) Comment on above: Performed By: #### C MP, CBC, GFR, MDW, LIP, ADIFF, ANEU ####[address] [place], [place] [address] ALP [Catalytic activity/Vol] 111 U/L Normal 40-135 [facility] ([place]) Comment on above: Performed By: #### C MP, CBC, GFR, MDW, LIP, ADIFF, ANEU ####[place] [address] [place], [place] [address] ALT [Catalytic activity/Vol] 42 U/L Normal 14-59 [facility] ([place]) Comment on above: Performed By: #### C MP, CBC, GFR, MDW, LIP, ADIFF, ANEU ####[place] [address] [place], [place] [address] AST [Catalytic activity/Vol] 16 U/L Normal 10-40 [facility] ([place]) Comment on above: Performed By: #### C MP, CBC, GFR, MDW, LIP, ADIFF, ANEU ####[place] [address] [place], [place] [address] Bili Total 0.4 mg/dL Normal 0.2-1.0 [facility] ([place]) Comment on above: Result Comment: Use of this assay is not recommended for patients undergoing treatment with eltrombopag due to the potential for falsely elevated results. Performed By: #### C MP, CBC, GFR, MDW, LIP, ADIFF, ANEU ####[place] [address] [place], [place] [address] BUN/Creatinine Ratio 14 ratio Normal 7-27 On license of [facility] ([place]) Comment on above: Performed By: #### C MP, CBC, GFR, MDW, LIP, ADIFF, ANEU ####[place] [address] [place], [place] [address] Calcium [Mass/Vol] 8.6 mg/dL Normal 8.4-10.2 [facility] ([place]) Comment on above: Performed By: #### C MP, CBC, GFR, MDW, LIP, ADIFF, ANEU ####[place] [address] [place], [place] [address] Chloride [Moles/Vol] 98 mmol/L Normal 98-107 On license of [facility] ([place]) Comment on above: Performed By: #### C MP, CBC, GFR, MDW, LIP, ADIFF, ANEU ####[place] [place], [place] [address] CO2 [Moles/Vol] 28 mmol/L Normal 22-29 [facility] ([place]) Comment on above: Performed By: #### C MP, CBC, GFR, MDW, LIP, ADIFF, ANEU ####[address] [place], [place] [address] Creatinine [Mass/Vol] 1.00 mg/dL Normal 0.55-1.02 [facility] ([place]) Comment on above: Performed By: #### C MP, CBC, GFR, MDW, LIP, ADIFF, ANEU ####[place] [address] [place], [place] [address] Electrolyte Balance 11.0 mEq/L Normal 4.0-15.0 [facility] ([place] Comment on above: Performed By: #### C MP, CBC, GFR, MDW, LIP, ADIFF, ANEU ####[address] [place], [place] [address] Globulin 3.8 G/dL Normal [facility] ([place]) Comment on above: Performed By: #### C MP, CBC, GFR, MDW, LIP, ADIFF, ANEU ####[place] [address] [place], [place] [address] Glucose [Mass/Vol] 288 mg/dL High 70-105 [facility] ([place]) Comment on above: Performed By: #### C MP, CBC, GFR, MDW, LIP, ADIFF, ANEU ####[address] [place], [place] [address] Potassium [Moles/Vol] 3.9 mmol/L Normal 3.5-5.1 [facility] ([place]) Comment on above: Performed By: #### C MP, CBC, GFR, MDW, LIP, ADIFF, ANEU ####[address] [place], [place] [address] Sodium [Moles/Vol] 137 mmol/L Normal 136-145 [facility] ([place]) Comment on above: Performed By: #### C MP, CBC, GFR, MDW, LIP, ADIFF, ANEU ####[address] [place], [place] [address] Total Protein 7.7 G/dL Normal 6.4-8.2 [facility] ([place]) Comment on above: Performed By: #### C MP, CBC, GFR, MDW, LIP, ADIFF, ANEU ####[address] [place], [place] [address] Urea nitrogen [Mass/Vol] 14 mg/dL Normal 7-18 [facility]) Comment on above: Performed By: #### C MP, CBC, GFR, MDW, LIP, ADIFF, ANEU ####[place] [address] [place], [place] [address] CT ABDOMEN/PELVIS W/O CONTRA STon 09-24-2023 CT ABDOMEN/PELVIS W/O CONTRAST Normal [facility] ([place]) LABORATORYOrdered By: SYSTEM SYSTEM on 09-24-2023 Albumin [...] 09-24-2023 Lipase Level 54 U/L Normal 16-77 [facility] ([place]) Comment on above: Performed By: #### C MP, CBC, GFR, MDW, LIP, ADIFF, ANEU ####[address] [place], [place] [address] PREGUon 09-24-2023 HCG ( test) Ql (U) Negative Normal [facility] ([place]) Comment on above: Performed By: #### U A, UAMICAO, PREGU ####[address] [place], [place] [address] test (u) int Not detected Invalid Interpretation Code [facility] ([place] Comment on above: Performed By: #### U A, UAMICAO, PREGU ####[address] [place], [place] [address] UAon 09-24-2023 Color (U) Light yellow Normal [facility] ([place] Comment on above: Performed By: #### U A, UAMICAO, PREGU ####[address] [place], [place] [address] Glucose (U) [Mass/Vol] 500 mg/dL Abnormal Negative [facility] ([place]) Comment on above: Performed By: #### U A, UAMICAO, PREGU ####[address] [place] [address] Ketones Ql (U) Negative Normal Negative [facility] ([place]) Comment on above: Performed By: #### U A, UAMICAO, PREGU ####[address] [place], [place] [address] UA Appear Clear Normal Clear [facility] ([place] Comment on above: Performed By: #### U A, UAMICAO, PREGU ####[address] [place], [place] [address] UA Blood Negative Normal Negative [facility] ([place]) Comment on above: Performed By: #### U A, UAMICAO, PREGU ####Sarwat [address] [address] UA Leuk Est Small Abnormal Negative [facility] ([place]) Comment on above: Performed By: #### U A, UAMICAO, PREGU ####Sarwat [address] [place], [place] [address] UA Nitrite Negative Normal Negative [facility] ([place]) Comment on above: Performed By: #### U A, UAMICAO, PREGU ####Sarwat [address] [place], [place] [address] UA pH 7.0 Normal 5.0 - 8.0 [facility] ([place]) Comment on above: Performed By: #### U A, UAMICAO, PREGU ####Sarwat [address] [id number] UA Protein 30 mg/dL Normal Negative [facility] ([place] Comment on above: Performed By: #### U A, UAMICAO, PREGU ####Sarwat [address] [place], [place] [address] UA Spec Grav 1.010 Abnormal 1.015-1.02 5 [facility] ([place]) Comment on above: Performed By: #### U A, UAMICAO, PREGU ####Sarwat [address] [place], [place] [address] UA Specimen Type Cook Catheter Normal On license of [facility] ([place]) Comment on above: Performed By: #### U A, UAMICAO, PREGU ####Sarwat [address] [place], [place] [address] UA Urobilinogen 0.2 E.U./dL Normal 0.2-1.0 [facility] ([place]) Comment on above: Performed By: #### U A, UAMICAO, PREGU ####Sarwat [address] [address] Urobilinogen (U) [Mass/Vol] Negative Normal Negative [facility] ([place]) Comment on above: Performed By: #### U A, UAMICAO, PREGU ####Sarwat [address] [address] No Panel Informationon 08-17 Radiology Result ACTIONABLE Abnormal [facility] Absolute lymphocyte countOrd ered By: Arianna Pabon on 08-13-2023 Lymphocytes Auto (Unsp spec) [#/Vol] 3.40 10*3/uL 0.83-4.51 [facility] Automated lymphocyte count a s percentage of total leukocytesOrdered By: Arianna Pabon on 08-13-2023 Lymphocytes/100 WBC Auto (Unsp spec) 25.4 % 19-41 [facility] Basophil percentageOrdered B y: Arianna Pabon on 08-13-2023 Basophil percentage 10-25 SEEN /hpf 0-5 [facility] Basophils/100 WBC (Bld) 0.7 % 0-1 [facility] Chloride [Moles/Vol] 101 mmol/L 98-107 [facility] Eosinophils/100 WBC (Bld) 1.5 % 0-5 [facility] Glucose [Mass/Vol] 428 mg/dL 74-106 [facility] Comment on above: Glucose result great er than or equal to 200 mg/dLsuggests DIABETES MELLITUS per A.D.A. criteria. Hemoglobin (Bld) [Mass/Vol] 13.9 g/dL 12.0-15.0 [facility] Monocytes/100 WBC (Bld) 10.4 % 0-10 [facility] Neutrophils (Bld) [#/Vol] 8.2 10*3/uL 2.0-7.7 [facility] Neutrophils/100 WBC (Bld) 61.2 % 47-70 [facility] Potassium [Moles/Vol] 3.7 mmol/L 3.5-5.1 [facility] Sodium [Moles/Vol] 133 mmol/L 136-145 [facility] WBC (Bld) [#/Vol] 13.4 10*3/uL 4.4-11.0 [facility] Bilirubin Test strip Ql (U)O rdered By: Arianna Pabon on 08-13-2023 Bilirubin Ql (U) Negative Negative [facility] Culture, urineOrdered By: Torrie Pabon on 08-13-2023 Bacteria identified Cx Nom (U) Morganella morganii sp morgani [facility] Bacteria identified Cx Nom (U) Pseudomonas aeruginosa [facility] Determination of erythrocyte mean corpuscular volume (MCV)Ordered By: Arianna Pabon on 08-13-2023 MCV (RBC) [Entitic vol] 87.1 fL 81-99 [facility] Erythrocyte distribution wid th ratioOrdered By: Arianna Pabon on 08-13-2023 Erythrocyte distribution width (RBC) [Ratio] 13.2 % 11.6-14.6 [facility] Erythrocyte distribution wid th standard deviationOrdered By: Arianna Pabon on 08-13-2023 Erythrocyte distribution width (RBC) [Entitic vol] 41.7 fL 35.1-43.9 [facility] Hematocrit Auto (Bld) [Volum e fraction]Ordered By: Arianna Pabon on 08-13-2023 Hematocrit (Bld) [Volume fraction] 41.7 % 37-47 [facility] Immature granulocytes/100 WB C Auto (Bld)Ordered By: Arianna Pabon on 08-13-2023 Immature granulocytes/100 WBC (Bld) 0.800 % 0.0-0.9 [facility] Comment on above: IG% - Immature Granu locytes (promyelocytes, myelocytes and metamyelocytes) > 1% indicates that a LEFT SHIFT is Present. Ketones Test strip Ql (U)Ord ered By: Arianna Pabon on 08-13-2023 Ketones Ql (U) 5 mg/dl Negative [facility] Laboratory - Chemistry and C hemistry - challengeOrdered By: Arianna Pabon on 08-13-2023 CO2 [Moles/Vol] 25.0 mmol/L 21.0-32.0 [facility] Urea nitrogen/Creatinine [Mass ratio] 13.6 mg/mg 10-20 [facility] Laboratory - Hematology and Cell countsOrdered By: Arianna Pabon on 08-13-2023 MCH (RBC) [Entitic mass] 29.0 pg 27.0-32.0 [facility] MCHC (RBC) [Mass/Vol] 33.3 g/dL 32- [facility] Nucleated RBC/100 WBC (Bld) [Ratio] 0 % 0-5 [facility] Platelet mean volume (Bld) [Entitic vol] 11.5 fL 6.2-12.0 [facility] Platelets (Bld) [#/Vol] 229 10*3/uL 150-450 [facility] Mucus LM Ql (Urine sed)Order ed By: Arianna Pabon on 08-13-2023 Mucus Ql (Urine sed) 0 SEEN /hpf [facility] Nitrite Test strip Ql (U)Ord ered By: Arianna Pabon on 08-13-2023 Nitrite Ql (U) Positive Negative [facility] No Panel InformationOrdered By: Arianna Pabon on 08-13-2023 Estimated Creatinine Clearance Calc 67.62 ml/min [facility] Estimated GFR (MDRD) Amer 65 mL/min >60 [facility] Comment on above: GFR Calc Estimated GFR (MDRD) Non-Af Amer 54 mL/min >60 [facility] Comment on above: Non- GFR Calc Urine RBC 0-5 SEEN /hpf 0-5 [facility] Protein Test strip Ql (U)Ord ered By: Arianna Pabon on 08-13-2023 Protein Ql (U) 100 mg/dl Negative [facility] RBC Auto (Bld) [#/Vol]Ordere d By: Arianna Pabon on 08-13-2023 RBC (Bld) [#/Vol] 4.79 10*6/uL 4.2-5.4 [facility] Serum or plasma calcium thi urement (mass/volume)Ordered By: Arianna Pabon on 08-13-2023 Calcium [Mass/Vol] 9.4 mg/dL 8.5-10.1 [facility] Serum or plasma creatinine m easurement (mass/volume)Ordered By: Arianna Pabon on 08-13-2023 Creatinine [Mass/Vol] 1.18 mg/dL 0.55-1.02 [facility] Comment on above: The validity of the calculated GFR & GFRAA in patients over 70 years has not been determined. Clinical correlation is essential. Serum or plasma urea nitroge n measurement (mass/volume)Ordered By: Arianna Pabon on 08-13-2023 Urea nitrogen [Mass/Vol] 16 mg/dL 7-18 [facility] Squamous epithelial cells de tection in urine sediment by light microscopyOrdered By: Arianna Pabon on 08-13-2023 Epithelial cells.squamous LM Ql (Urine sed) 0-5 SEEN /hpf 5-10 [facility] Thin prep Papanicolaou smear with manual screeningOrdered By: Xavier Sanderson on 08-13-2023 Thin prep Papanicolaou smear with manual screening 330 mg/dL 74-106 [facility] Comment on above: MANAGEMENT OF PATIEN T CARE PER NURSING PROTOCOL Thin prep Papanicolaou smear with manual screeningOrdered By: Arianna Pabon on 08-13-2023 Thin prep Papanicolaou smear with manual screening 7 5-15 [facility] Urine blood detectionOrdered By: Arianna Pabon on 08-13-2023 RBC Ql (U) 25 /ul Negative [facility] Urine clarityOrdered By: Alison Pabon on 08-13-2023 Clarity (U) Sl. Cloudy Clear [facility] Urine color determinationOrd ered By: Arianna Pabon on 08-13-2023 Color (U) Yellow Yellow [facility] Urine glucose detectionOrder ed By: Arianna Pabon on 08-13-2023 Glucose Ql (U) 1000 mg/dl Normal [facility] Urine leukocyte esterase det ection by dipstickOrdered By: Arianna Pabon on 08-13-2023 Leukocyte esterase Test strip Ql (U) 500 /ul Negative [facility] Urine pHOrdered By: Arianna mccartney on 08-13-2023 pH (U) 7.0 [pH] 5.0 - 8.0 [facility] Urine sediment bacteria coun t by microscopy (number/high power field)Ordered By: Arianna Pabon on 08-13-2023 Bacteria LM.HPF (Urine sed) [#/Area] 3 /[HPF] None Seen [facility] Urine specific gravity measu rementOrdered By: Arianna Pabon on 08-13-2023 Specific gravity (U) [Rel density] 1.010 1.002-1.03 0 [facility] Urine urobilinogen measureme ntOrdered By: Arianna Pabon on 08-13-2023 Urobilinogen Ql (U) 1 mg/dl Normal [facility] .Auto Diffon 07-20-2023 Basophil, Absolute 0.1 10 3/mcL Normal 0.0-0.2 On license of [facility] ([place]) Comment on above: Performed By: #### A CHRIS, GFR, ADLUCY RESTREPO MDW, CBC ####Sarwat [address] [place], [place] [address] Basophils/100 WBC (Bld) 0.7 % Normal 0.0-2.5 A [facility] ([place]) Comment on above: Performed By: #### A CHRIS, GFR, ADLUCY RESTREPO MDW, CBC ####Sarwat [address], [place] [address] Eosinophil, Absolute 0.2 10 3/mcL Normal 0.0-0.4 [facility] ([place]) Comment on above: Performed By: #### A CHRIS, GFR, ADIFF, KALEB AYALA, CBC ####[address]wat [address] [place], [place] [address] Eosinophils/100 WBC (Bld) 1.5 % Normal 0.0-7.0 [facility] ([place]) Comment on above: Performed By: #### A CHRIS, GFR, ADIFF, BMP, W, CBC ####[address] [place], [place] [address] Lymphocyte, Absolute 2.7 10 3/mcL Normal 0.8-3.9 [facility] ([place]) Comment on above: Performed By: #### A CHRIS, GFR, ADIFF, BMP, W, CBC ####[address] [place], [place] [address] Lymphocytes/100 WBC (Bld) 24.2 % Normal 10.0-50.0 [facility] ([place]) Comment on above: Performed By: #### A CHRIS, GFR, ADIFF, BMP, W, CBC ####[address] [place], [place] [address] Monocyte, Absolute 1.2 10 3/mcL High 0.2-1.0 On license of [facility] ([place]) Comment on above: Performed By: #### A CHRIS, GFR, ADIFF, BMP, KALEB, CBC ####Sarwat [address], [place] [address] Monocytes/100 WBC (Bld) 10.7 % Normal 1.7-13.0 A [facility] ([place] Comment on above: Performed By: #### A CHRIS, GFR, ADIFF, BMP, KALEB, CBC ####[address] [place], [place] [address] Neutrophils/100 WBC (Bld) 62.9 % Normal 37.0-80.0 [facility] ([place]) Comment on above: Performed By: #### A CHRIS, GFR, ADIFF, LUCY, KALEB, CBC ####[address] [place], [place] [address] .GFRon 07-20-2023 GFR Non- 50 ml/min/1.73sqm Normal [facility] ([place]) Comment on above: Result Comment: GFR [...] CHRIS, GFR, ADIFF, BMP, KALEB, CBC ####[address] [place], [place] [address] GFR 60 ml/min/1.73sqm Normal [facility] ([place]) Comment on above: Result Comment: GFR Population [...] GFR, ADIFF, LUCY, KALEB, CBC ####Sar[address] [place], [place] [address] .MDWon 07-20-2023 Monocyte Distribution Width 18.28 Normal 0.00-20.00 [facility] ([place]) Comment on above: Result Comment: For ED adult patients suspected of sepsis, MDW<=20.0 does not rule out sepsis or risk of sepsis Performed By: #### A CHRIS, GFR, ADIFF, BMP, KALEB, CBC ####Sar[address] [place], [place] [address] .NEUABSon 07-20-2023 Neutrophil, Absolute 7.1 10 3/mcL High 2.9-6.2 [facility] ([place]) Comment on above: Performed By: #### A CHRIS, GFR, ADLAURO, KALEB AYALA, CBC ####[address] [place], [place] [address] .Urinalysis Microscopic (AO) on 07-20-2023 UA Amorphus 1+ /hpf Normal [facility] ([place]) Comment on above: Performed By: #### U AMICAO, UA ####Sarwat [address] [place] [address] UA Bacteria 1+ /hpf Abnormal [facility] ([place]) Comment on above: Performed By: #### U AMICAO, UA ####[address] [place], [place] [address] UA RBC None Seen Normal None Seen [facility] ([place]) Comment on above: Performed By: #### U AMICAO, UA ####[address] [place], [place] [address] UA Squam Epithelial 0-5 Abnormal None Seen [facility] ([place]) Comment on above: Performed By: #### U AMICAO, UA ####[address] [place], [place] [address] UA WBC 0-5 Abnormal None Seen [facility] ([place] Comment on above: Performed By: #### U AMICAO, UA ####[address] [place], [place] [address] BMPon 07-20-2023 BUN/Creatinine Ratio 13 ratio Normal 7-27 On license of [facility] ([place]) Comment on above: Performed By: #### A CHRIS, GFR, LUCY PENA MDW, CBC ####[address] [place], [place] [address] Calcium [Mass/Vol] 8.9 mg/dL Normal 8.4-10.2 [facility] ([place]) Comment on above: Performed By: #### A CHRIS, GFR, ADLUCY RESTREPO MDW, CBC ####[address] [place], [place] [address] Chloride [Moles/Vol] 97 mmol/L Low 98-107 On license of [facility] ([place]) Comment on above: Performed By: #### A CHRIS, GFR, ADLUCY RESTREPO MDW, CBC ####Sar[address] [place], [place] [address] CO2 [Moles/Vol] 23 mmol/L Normal 22-29 [facility] ([place]) Comment on above: Performed By: #### A CHRIS, GFR, ADLAURO, KALEB AYALA, CBC ####[address] [place], [place] [address] Creatinine [Mass/Vol] 1.20 mg/dL High 0.55-1.02 [facility] ([place]) Comment on above: Performed By: #### A CHRIS, GFR, ADLUCY RESTREPO MDW, CBC ####[address] [place], [place] [address] Electrolyte Balance 12.0 mEq/L Normal 4.0-15.0 [facility] ([place]) Comment on above: Performed By: #### A CHRIS, GFR, LUCY PEAN MDW, CBC ####[address] [place], [place] [address] Glucose [Mass/Vol] 339 mg/dL High 70-105 [facility] ([place]) Comment on above: Performed By: #### A CHRIS, GFR, ADLAURO, KALEB AYALA, CBC ####[address] [place], [place] [address] Potassium [Moles/Vol] 4.3 mmol/L Normal 3.5-5.1 [facility] ([place]) Comment on above: Performed By: #### A CHRIS, GFR, ADLUCY RESTREPO MDW, CBC ####[address] [place], [place] [address] Sodium [Moles/Vol] 132 mmol/L Low 136-145 [facility] ([place]) Comment on above: Performed By: #### A CHRIS, GFR, ADIFFLUCY MDW, CBC ####Sarwat [address] [place], [place] [address] Urea nitrogen [Mass/Vol] 16 mg/dL Normal 7-18 [facility] ([place]) Comment on above: Performed By: #### A LOGAN PEREZ ADIFF, BMP, MDW, CBC ####[address] [place], [place] [address] CBCon 07-20-2023 Erythrocyte distribution width (RBC) [Ratio] 14.2 % Normal 11.5-14.5 [facility] ([place]) Comment on above: Performed By: #### A LOGAN PEREZ ADIFF, BMP, MDW, CBC ####[address] [place] [id number] Hematocrit (Bld) [Volume fraction] 39.9 % Normal 37.0-47.0 [facility] ([place]) Comment on above: Performed By: #### A CHRIS GFRBECKY BMP, MDW, CBC ####Sarwat [address] [place], [place] [id number] Hgb 13.6 G/dL Normal 12.0-16.0 [facility] ([place]) Comment on above: Performed By: #### A CHRIS GFRBECKY BMP, MDW, CBC ####Sarwat [address] [place] [id number] MCH (RBC) [Entitic mass] 29.6 pg Normal 27.0-31.2 [facility] ([place]) Comment on above: Performed By: #### A CHRIS GFR, LUCY PENA MDW, CBC ####[address] [place] [id number] MCHC 34.1 G/dL Normal 33.0-37.0 [facility] ([place]) Comment on above: Performed By: #### A CHRIS GFR, ADLUCY RESTREPO MDW, CBC ####Sar[address] [place], [place] [address] MCV (RBC) [Entitic vol] 86.9 fL Normal 80.0-94.0 [facility] ([place]) Comment on above: Performed By: #### A CHRIS, GFR, ADLAURO, LUCY, KALEB, CBC ####Sarwat [address] [place], [place] [address] Platelet 204 10 3/mcL Normal 130-400 [facility] ([place]) Comment on above: Performed By: #### A CHRIS, GFR, ADLAURO, LUCY, KALEB, CBC ####Sarwat [address] [place], [place] [address] Platelet mean volume (Bld) [Entitic vol] 8.3 fL Normal 7.4-10.4 [facility] ([place]) Comment on above: Performed By: #### A CHRIS, GFR, ADLAURO, LUCY, KALEB, CBC ####Sarwat [address] [place], [place] [address] RBC 4.59 10 6/mcL Normal 4.20-5.40 [facility] ([place]) Comment on above: Performed By: #### A CHRIS, GFR, BECKY, LUCY, KALEB, CBC ####[address] [place], [place] [address] WBC 11.3 10 3/mcL High 4.6-10.8 [facility] ([place]) Comment on above: Performed By: #### A CHRIS, GFR, BECKY, LUCY, KALEB, CBC ####Sarwat [address] [place], [place] [address] CT ABDOMEN/PELVIS W/O CONTRA STon 07-20-2023 CT ABDOMEN/PELVIS W/O CONTRAST Normal [facility] ([place]) LABORATORYOrdered By: Rebecca Farrell on 07-20-2023 Appearance [...] - 10.8 10^3/mcL AO Workflow SS UAon 02-22-2024 Color (U) Yellow Normal [facility] ([place]) Comment on above: Performed By: #### U AMICAO, UA ####[address] [place], [place] [address] Glucose (U) [Mass/Vol] 500 mg/dL Abnormal Negative [facility] ([place]) Comment on above: Performed By: #### U AMICAO, UA ####[address], [place] [address] Ketones Ql (U) Negative Normal Negative [facility] ([place]) Comment on above: Performed By: #### U AMICAO, UA ####Sar[address] [place] [address] UA Appear Slightly Cloudy Abnormal Clear [facility] ([place]) Comment on above: Performed By: #### U AMICAO, UA ####[address] [place], [place] [address] UA Blood Trace Abnormal Negative [facility] ([place] Comment on above: Performed By: #### U AMICAO, UA ####[address], [place] [address] UA Leuk Est Small Abnormal Negative [facility] ([place]) Comment on above: Performed By: #### U AMICAO, UA ####[address], [place] [address] UA Nitrite Positive Abnormal Negative [facility] ([place] Comment on above: Performed By: #### U AMICAO, UA ####Sar[address] [place], [place] [address] UA pH 7.5 Normal 5.0 - 8.0 [facility] ([place]) Comment on above: Performed By: #### U AMICAO, UA ####[address], [place] [address] UA Protein 30 mg/dL Normal Negative [facility] ([place]) Comment on above: Performed By: #### U AMICAO, UA ####[address] [place], [place] [address] UA Spec Grav 1.020 Normal 1.015-1.02 5 [facility] ([place]) Comment on above: Performed By: #### U AMICAO, UA ####Sarwat [address] [place], [place] [address] UA Specimen Type Cook Catheter Normal On license of [facility] ([place]) Comment on above: Performed By: #### U AMICAO, UA ####[address] [place], [place] [address] UA Urobilinogen 0.2 E.U./dL Normal 0.2-1.0 [facility] ([place]) Comment on above: Performed By: #### U AMICAO UA ####[address] [place], [place] [address] Urobilinogen (U) [Mass/Vol] Negative Normal Negative [facility] ([place]) Comment on above: Performed By: #### U AMICAO UA ####[address] [place], [place] [address] CURon 07-17-2023 CUR Normal [facility] ([place]) .Auto Diffon 07-15-2023 Basophil, Absolute 0.1 10 3/mcL Normal 0.0-0.2 On license of [facility] ([place]) Comment on above: Performed By: #### A BECKY PEREZ MDW, GFR, CBC, BMP ####[address] [place], [place] [address] Basophils/100 WBC (Bld) 0.7 % Normal 0.0-2.5 A [facility] ([place]) Comment on above: Performed By: #### A BECKY PEREZ MDW, GFR, CBC, BMP ####[address] [place], [place] [address] Eosinophil, Absolute 0.2 10 3/mcL Normal 0.0-0.4 [facility] ([place]) Comment on above: Performed By: #### A BECKY PEREZ MDW, GFR, CBC, BMP ####[address] [place], [place] [address] Eosinophils/100 WBC (Bld) 1.6 % Normal 0.0-7.0 [facility] ([place]) Comment on above: Performed By: #### A BECKY PEREZ MDW, GFR, CBC, BMP ####[address] [place], [place] [address] Lymphocyte, Absolute 2.5 10 3/mcL Normal 0.8-3.9 [facility] ([place]) Comment on above: Performed By: #### A BECKY PEREZ MDW, GFR, CBC, BMP ####[address] [place], [place] [address] Lymphocytes/100 WBC (Bld) 22.3 % Normal 10.0-50.0 [facility] ([place]) Comment on above: Performed By: #### A BECKY PEREZ MDW, GFR, CBC, BMP ####[address] [place], [place] [address] Monocyte, Absolute 1.1 10 3/mcL High 0.2-1.0 On license of [facility] ([place]) Comment on above: Performed By: #### A BECKY PEREZ MDW, GFR, CBC, BMP ####[address] [place], [place] [address] Monocytes/100 WBC (Bld) 10.2 % Normal 1.7-13.0 [facility] ([place]) Comment on above: Performed By: #### A BECKY PEREZ MDW, GFR, CBC, BMP ####[address], [place] [address] Neutrophils/100 WBC (Bld) 65.2 % Normal 37.0-80.0 [facility] ([place]) Comment on above: Performed By: #### A BECKY PEREZ MDW, GFR, CBC, BMP ####[address] [place], [place] [address] .GFRon 07-15-2023 GFR 75 ml/min/1.73sqm Normal [facility] ([place]) Comment on above: Result Comment: GFR Population [...] PEREZ MDW, GFR, CBC, BMP ####[address], [place] [address] GFR Non- 62 ml/min/1.73sqm Normal [facility] ([place]) Comment on above: Result Comment: GFR Population [...] PEREZ MDW, GFR, CBC, BMP ####[address] [place], [place] [address] .MDWon 07-15-2023 Monocyte Distribution Width 18.25 Normal 0.00-20.00 [facility] ([place]) Comment on above: Result Comment: For ED adult patients suspected of sepsis, MDW<=20.0 does not rule out sepsis or risk of sepsis Performed By: #### A BECKY PEREZ MDW, GFR, CBC, BMP ####[address] [place], [place] [address] .NEUABSon 07-15-2023 Neutrophil, Absolute 7.3 10 3/mcL High 2.9-6.2 [facility] ([place]) Comment on above: Performed By: #### A BECKY PEREZ MDW, GFR, CBC, BMP ####[address] [place], [place] [address] .Urinalysis Microscopic (AO) on 07-15-2023 UA Amorphus 3+ /hpf Normal [facility] ([place]) Comment on above: Performed By: #### P REGU, UAMICAO, UA ####[address] [place], [place] [address] UA Bacteria 2+ /hpf Abnormal [facility] ([place] Comment on above: Performed By: #### P REGU, UAMICAO, UA ####[address] [place] [address] UA RBC 0-5 Abnormal None Seen [facility] ([place] Comment on above: Performed By: #### P REGU, UAMICAO, UA ####[address] [place] [address] UA Squam Epithelial 10-15 Abnormal None Seen [facility] ([place] Comment on above: Performed By: #### P REGU, UAMICAO, UA ####[address] [place], [place] [address] UA WBC 10-15 Abnormal None Seen [facility] ([place] Comment on above: Performed By: #### P REGU, UAMICAO, UA ####[address] [place], [place] [address] BMPon 07-15-2023 BUN/Creatinine Ratio 14 ratio Normal 7-27 On license of [facility] ([place]) Comment on above: Performed By: #### A BECKY PEREZ MDW, GFR, CBC, BMP ####[address] [place], [place] [address] Calcium [Mass/Vol] 9.5 mg/dL Normal 8.4-10.2 [facility] ([place] Comment on above: Performed By: #### A BECKY PEREZ MDW, GFR, CBC, BMP ####[address], [place] [address] Chloride [Moles/Vol] 101 mmol/L Normal 98-107 On license of [facility] ([place]) Comment on above: Performed By: #### A BECKY PEREZ MDW, GFR, CBC, BMP ####[address] [place], [place] [address] CO2 [Moles/Vol] 26 mmol/L Normal 22-29 [facility] ([place]) Comment on above: Performed By: #### A BECKY PEREZ MDW, GFR, CBC, BMP ####[address] [place], [place] [address] Creatinine [Mass/Vol] 0.99 mg/dL Normal 0.55-1.02 [facility] ([place]) Comment on above: Performed By: #### A BECKY PEREZ MDW, GFR, CBC, BMP ####[address] [place], [place] [address] Electrolyte Balance 8.0 mEq/L Normal 4.0-15.0 [facility] ([place] Comment on above: Performed By: #### A BECKY PEREZ MDW, GFR, CBC, BMP ####[address] [place], [place] [address] Glucose [Mass/Vol] 343 mg/dL High 70-105 [facility] ([place] Comment on above: Performed By: #### A BECKY PEREZ MDW, GFR, CBC, BMP ####[address] [place], [place] [address] Potassium [Moles/Vol] 4.1 mmol/L Normal 3.5-5.1 [facility] ([place]) Comment on above: Performed By: #### A BECKY PEREZ MDW, GFR, CBC, BMP ####[address] [place], [place] [address] Sodium [Moles/Vol] 135 mmol/L Low 136-145 [facility] ([place]) Comment on above: Performed By: #### A BECKY PEREZ MDW, GFR, CBC, BMP ####Sarwat [address], [place] [address] Urea nitrogen [Mass/Vol] 14 mg/dL Normal 7-18 [facility] ([place]) Comment on above: Performed By: #### A BECKY PEREZ MDW, GFR, CBC, BMP ####Sarwat [address], [place] [address] CBCon 07-15-2023 Erythrocyte distribution width (RBC) [Ratio] 14.2 % Normal 11.5-14.5 [facility] ([place]) Comment on above: Performed By: #### A BECKY PEREZ MDW, GFR, CBC, BMP ####Sarwat [address] [place] [id number] Hematocrit (Bld) [Volume fraction] 40.7 % Normal 37.0-47.0 [facility] ([place]) Comment on above: Performed By: #### A BECKY PEREZ MDW, GFR, CBC, BMP ####Sarwat [address] [place] [id number] Hgb 13.6 G/dL Normal 12.0-16.0 [facility] ([place]) Comment on above: Performed By: #### A BECKY PEREZ MDW, GFR, CBC, BMP ####Sarwat [address] [place] [id number] MCH (RBC) [Entitic mass] 29.4 pg Normal 27.0-31.2 [facility] ([place]) Comment on above: Performed By: #### A BECKY PEREZ MDW, GFR, CBC, BMP ####[address] [place] [id number] MCHC 33.5 G/dL Normal 33.0-37.0 [facility] ([place]) Comment on above: Performed By: #### A BECKY PEREZ MDW, GFR, CBC, BMP ####[address] [place] [id number] MCV (RBC) [Entitic vol] 87.7 fL Normal 80.0-94.0 A [facility] ([place]) Comment on above: Performed By: #### A BECKY PEREZ MDW, GFR, CBC, BMP ####[address], [place] [address] Platelet 192 10 3/mcL Normal 130-400 [facility] ([place]) Comment on above: Performed By: #### A BECKY PEREZ MDW, GFR, CBC, BMP ####[address] [place], [place] [address] Platelet mean volume (Bld) [Entitic vol] 8.5 fL Normal 7.4-10.4 [facility] ([place]) Comment on above: Performed By: #### A BECKY PEREZ MDW, GFR, CBC, BMP ####[address], [place] [address] RBC 4.64 10 6/mcL Normal 4.20-5.40 [facility] ([place]) Comment on above: Performed By: #### A BECKY PEREZ MDW, GFR, CBC, BMP ####[address], [place] [address] WBC 11.2 10 3/mcL High 4.6-10.8 [facility] ([place]) Comment on above: Performed By: #### A BECKY PEREZ MDW, GFR, CBC, BMP ####[address], [place] [address] LABORATORYOrdered By: Rosario Cagle on 07-15-2023 Appearance [...] HCG ( test) Ql (U) Negative Normal [facility] ([place]) Comment on above: Performed By: #### P REGU, UAMICAO, UA ####[address] [place] [id number] test (u) int Not detected Invalid Interpretation Code [facility] ([place]) Comment on above: Performed By: #### P REGU, UAMICAO, UA ####[address] [place] [id number] UAon 07-15-2023 Color (U) Yellow Normal [facility] ([place]) Comment on above: Performed By: #### P REGU, UAMICAO, UA ####[address] [place] [address] Glucose (U) [Mass/Vol] mg/dL Abnormal Negative [facility] ([place]) Comment on above: Performed By: #### P REGU, UAMICAO, UA ####[address] [place] [address] Ketones Ql (U) Negative Normal Negative [facility] ([place]) Comment on above: Performed By: #### P REGU, UAMICAO, UA ####[address] [place] [address] UA Appear Slightly Cloudy Abnormal Clear [facility] ([place]) Comment on above: Performed By: #### P REGU, UAMICAO, UA ####[address] [place] [id number] UA Blood Trace Abnormal Negative [facility] ([place]) Comment on above: Performed By: #### P REGU, UAMICAO, UA ####[address] [place] [address] UA Leuk Est Small Abnormal Negative [facility] ([place]) Comment on above: Performed By: #### P REGU, UAMICAO, UA ####[address] [place] [id number] UA Nitrite Negative Normal Negative [facility] ([place]) Comment on above: Performed By: #### P REGU, UAMICAO, UA ####Sarwat [address], [place] [address] UA pH 7.0 Normal 5.0 - 8.0 [facility] ([place]) Comment on above: Performed By: #### P REGU, UAMICAO, UA ####[address] [place], [place] [address] UA Protein Negative Normal Negative [facility] ([place]) Comment on above: Performed By: #### P REGU, UAMICAO, UA ####[address]wat [address], [place] [address] UA Spec Grav 1.020 Normal 1.015-1.02 5 [facility] ([place]) Comment on above: Performed By: #### P REGU, UAMICAO, UA ####[address], [place] [address] UA Specimen Type Catheter Normal [facility] ([place]) Comment on above: Performed By: #### P REGU, UAMICAO, UA ####[address], [place] [address] UA Urobilinogen 0.2 E.U./dL Normal 0.2-1.0 [facility] ([place]) Comment on above: Performed By: #### P REGU, UAMICAO, UA ####[address], [place] [address] Urobilinogen (U) [Mass/Vol] Negative Normal Negative [facility] ([place]) Comment on above: Performed By: #### P REGU, UAMICAO, UA ####[address], [place] [address] .Auto Diffon 06-07-2023 Basophil, Absolute 0.1 10 3/mcL Normal 0.0-0.2 On license of [facility] ([place]) Comment on above: Performed By: #### A DIFF, BMP, ANEU, CBC, GFR, MDW ####[address]wat [address], [place] [address] Basophils/100 WBC (Bld) 0.7 % Normal 0.0-2.5 A [facility] ([place]) Comment on above: Performed By: #### A DIFF, BMP, ANEU, CBC, GFR, MDW ####Sarwat [address] [place], [place] [address] Eosinophil, Absolute 0.2 10 3/mcL Normal 0.0-0.4 [facility] ([place]) Comment on above: Performed By: #### A DIFF, BMP, ANEU, CBC, GFR, MDW ####[address], [place] [address] Eosinophils/100 WBC (Bld) 1.9 % Normal 0.0-7.0 [facility] ([place]) Comment on above: Performed By: #### A DIFF, BMP, ANEU, CBC, GFR, MDW ####Sar[address], [place] [address] Lymphocyte, Absolute 2.5 10 3/mcL Normal 0.8-3.9 [facility] ([place]) Comment on above: Performed By: #### A DIFF, BMP, ANEU, CBC, GFR, MDW ####[address], [place] [address] Lymphocytes/100 WBC (Bld) 21.5 % Normal 10.0-50.0 [facility] ([place]) Comment on above: Performed By: #### A DIFF, BMP, ANEU, CBC, GFR, MDW ####[address], [place] [address] Monocyte, Absolute 0.9 10 3/mcL Normal 0.2-1.0 On license of [facility] ([place]) Comment on above: Performed By: #### A DIFF, BMP, ANEU, CBC, GFR, MDW ####[address], [place] [address] Monocytes/100 WBC (Bld) 7.9 % Normal 1.7-13.0 [facility] ([place]) Comment on above: Performed By: #### A DIFF, BMP, ANEU, CBC, GFR, MDW ####[address], [place] [address] Neutrophils/100 WBC (Bld) 68.0 % Normal 37.0-80.0 [facility] ([place]) Comment on above: Performed By: #### A DIFF, BMP, ANEU, CBC, GFR, W ####[address], [place] [address] .GFRon 06-07-2023 GFR Non- 67 ml/min/1.73sqm Normal [facility] ([place]) Comment on above: Result Comment: GFR Population [...] BMP, ANEU, CBC, GFR, MDW ####Sarwat [address], [place] [address] GFR 82 ml/min/1.73sqm Normal [facility] ([place]) Comment on above: Result Comment: GFR Population [...] BMP, ANEU, CBC, GFR, MDW ####[address]wat [address], [place] [address] .MDWon 06-07-2023 Monocyte Distribution Width 15.96 Normal 0.00-20.00 [facility] ([place]) Comment on above: Result Comment: For ED adult patients suspected of sepsis, MDW<=20.0 does not rule out sepsis or risk of sepsis Performed By: #### A DIFF, BMP, ANEU, CBC, GFR, MDW ####[address], [place] [address] .NEUABSon 06-07-2023 Neutrophil, Absolute 7.8 10 3/mcL High 2.9-6.2 [facility] ([place]) Comment on above: Performed By: #### A DIFF, BMP, ANEU, CBC, GFR, MDW ####[address], [place] [address] .Urinalysis Microscopic (AO) on 06-07-2023 UA Bacteria Trace Abnormal [facility] ([place]) Comment on above: Performed By: #### U AMICAO, UA ####[address], [place] [address] UA RBC 0-5 Abnormal None Seen [facility] ([place]) Comment on above: Performed By: #### U AMICAO, UA ####[address], [place] [address] UA Squam Epithelial 0-5 Abnormal None Seen [facility] ([place]) Comment on above: Performed By: #### U AMICAO, UA ####[address], [place] [address] UA WBC LOADED Abnormal None Seen [facility] ([place]) Comment on above: Performed By: #### U AMICAO, UA ####[address], [place] [address] BMPon 06-07-2023 BUN/Creatinine Ratio 16 ratio Normal 7-27 [facility]) Comment on above: Performed By: #### A DIFF, BMP, ANEU, CBC, GFR, MDW ####[address], [place] [address] Calcium [Mass/Vol] 9.6 mg/dL Normal 8.4-10.2 [facility] ([place]) Comment on above: Performed By: #### A DIFF, BMP, ANEU, CBC, GFR, W ####[address], [place] [address] Chloride [Moles/Vol] 97 mmol/L Low 98-107 On license of [facility] ([place]) Comment on above: Performed By: #### A DIFF, BMP, ANEU, CBC, GFR, W ####[address], [place] [address] CO2 [Moles/Vol] 24 mmol/L Normal 22-29 [facility] ([place]) Comment on above: Performed By: #### A DIFF, BMP, ANEU, CBC, GFR, W ####[address], [place] [address] Creatinine [Mass/Vol] 0.92 mg/dL Normal 0.55-1.02 [facility] ([place]) Comment on above: Performed By: #### A DIFF, BMP, ANEU, CBC, GFR, W ####[address], [place] [address] Electrolyte Balance 12.0 mEq/L Normal 4.0-15.0 [facility] ([place]) Comment on above: Performed By: #### A DIFF, BMP, ANEU, CBC, GFR, W ####[address], [place] [address] Glucose [Mass/Vol] 381 mg/dL High 70-105 [facility] ([place]) Comment on above: Performed By: #### A DIFF, BMP, ANEU, CBC, GFR, W ####[address], [place] [address] Potassium [Moles/Vol] 4.5 mmol/L Normal 3.5-5.1 [facility] ([place]) Comment on above: Performed By: #### A DIFF, BMP, ANEU, CBC, GFR, W ####[address], [place] [address] Sodium [Moles/Vol] 133 mmol/L Low 136-145 [facility] ([place]) Comment on above: Performed By: #### A DIFF, BMP, ANEU, CBC, GFR, KALEB ####[address], [place] [address] Urea nitrogen [Mass/Vol] 15 mg/dL Normal 7-18 [facility] ([place]) Comment on above: Performed By: #### A DIFF, BMP, ANEU, CBC, GFR, W ####[address], [place] [address] CBCon 06-07-2023 Erythrocyte distribution width (RBC) [Ratio] 14.1 % Normal 11.5-14.5 [facility] ([place]) Comment on above: Performed By: #### A DIFF, BMP, ANEU, CBC, GFR, KALEB ####[address], [place] [address] Hematocrit (Bld) [Volume fraction] 41.7 % Normal 37.0-47.0 [facility] ([place]) Comment on above: Performed By: #### A DIFF, BMP, ANEU, CBC, GFR, KALEB ####[address], [place] [address] Hgb 14.0 G/dL Normal 12.0-16.0 [facility] ([place]) Comment on above: Performed By: #### A DIFF, BMP, ANEU, CBC, GFR, KALEB ####[address], [place] [address] MCH (RBC) [Entitic mass] 29.4 pg Normal 27.0-31.2 [facility] ([place]) Comment on above: Performed By: #### A DIFF, BMP, ANEU, CBC, GFR, W ####[address], [place] [address] MCHC 33.5 G/dL Normal 33.0-37.0 [facility] ([place]) Comment on above: Performed By: #### A DIFF, BMP, ANEU, CBC, GFR, MDW ####[address], [place] [address] MCV (RBC) [Entitic vol] 87.7 fL Normal 80.0-94.0 A [facility] ([place]) Comment on above: Performed By: #### A DIFF, BMP, ANEU, CBC, GFR, KALEB ####[address], [place] [address] Platelet 278 10 3/mcL Normal 130-400 [facility] ([place]) Comment on above: Performed By: #### A DIFF, BMP, ANEU, CBC, GFR, KALEB ####[address], [place] [address] Platelet mean volume (Bld) [Entitic vol] 8.5 fL Normal 7.4-10.4 [facility] ([place]) Comment on above: Performed By: #### A DIFF, BMP, ANEU, CBC, GFR, KALEB ####[address], [place] [address] RBC 4.75 10 6/mcL Normal 4.20-5.40 [facility] ([place]) Comment on above: Performed By: #### A DIFF, BMP, ANEU, CBC, GFR, KALEB ####[address], [place] [address] WBC 11.5 10 3/mcL High 4.6-10.8 [facility] ([place]) Comment on above: Performed By: #### A DIFF, BMP, ANEU, CBC, GFR, KALEB ####[address], [place] [address] CT HEAD OR BRAIN W/O CONTRAS Ton 06-07-2023 CT HEAD OR BRAIN W/O CONTRAST Normal [facility] ([place]) CT SPINE CERVICAL W/O CONTRA STon 06-07-2023 CT SPINE CERVICAL W/O CONTRAST Normal [facility] ([place]) LABORATORYOrdered By: Daksha Cutler on 06-07-2023 Glucose [Mass/Vol] 261 mg/dL High 70 - 110 mg/dL [facility] Blood Glucose Testing Reason Routine (06/07/23 8:21 PM) [facility] Glucose [Mass/Vol] 303 mg/dL High 70 - 110 mg/dL [facility] LABORATORYOrdered By: Shanon Munson on 06-07-2023 [...] SS UAon 06-07-2023 Color (U) Yellow Normal [facility] ([place]) Comment on above: Performed By: #### U AMICAO, UA ####[address], [place] [address] Glucose (U) [Mass/Vol] 500 mg/dL Abnormal Negative [facility] ([place]) Comment on above: Performed By: #### U AMICAO, UA ####[address], [place] [address] Ketones Ql (U) Negative Normal Negative [facility] ([place]) Comment on above: Performed By: #### U AMICAO, UA ####[address], [place] [address] UA Appear Clear Normal Clear [facility] ([place]) Comment on above: Performed By: #### U AMICAO, UA ####[address], [place] [address] UA Blood Negative Normal Negative [facility] ([place]) Comment on above: Performed By: #### U AMICAO, UA ####[address], [place] [address] UA Leuk Est Small Abnormal Negative [facility] ([place]) Comment on above: Performed By: #### U AMICAO, UA ####[address], [place] [address] UA Nitrite Positive Abnormal Negative [facility] ([place]) Comment on above: Performed By: #### U AMICAO, UA ####[address], [place] [address] UA pH 6.5 Normal 5.0 - 8.0 [facility] ([place]) Comment on above: Performed By: #### U OMARI, UA ####[address], [place] [address] UA Protein Negative Normal Negative [facility] ([place]) Comment on above: Performed By: #### U AMICAGermán, UA ####[address], [place] [address] UA Spec Grav 1.020 Normal 1.015-1.02 5 [facility] ([place]) Comment on above: Performed By: #### U OMARI UA ####[address], [place] [address] UA Specimen Type Clean Catch Normal [facility] ([place]) Comment on above: Performed By: #### U OMARI UA ####[address], [place] [address] UA Urobilinogen 0.2 E.U./dL Normal 0.2-1.0 [facility] ([place]) Comment on above: Performed By: #### U AMICAGermán UA ####[address], [place] [address] Urobilinogen (U) [Mass/Vol] Negative Normal Negative [facility] ([place]) Comment on above: Performed By: #### U AMICAO, UA ####[address], [place] [address] XR ELBOW MINIMUM 3 VIEWS LEF Ton 06-07-2023 XR ELBOW MINIMUM 3 VIEWS LEFT Normal [facility] ([place]) XR HAND AND WRIST 6 VIEWS LE FTon 06-07-2023 XR HAND AND WRIST 6 VIEWS LEFT Normal [facility] ([place]) XR SHOULDER MINIMUM 2 VIEWS LEFTon 06-07-2023 XR SHOULDER MINIMUM 2 VIEWS LEFT Normal [facility] ([place]) Absolute lymphocyte countOrd ered By: Kevin Barcenas on 04-20-2023 Lymphocytes Auto (Unsp spec) [#/Vol] 3.22 10*3/uL 0.83-4.51 [facility] Amorphous sediment detection in urine sediment by light microscopyOrdered By: Kevin Barcenas on 04-20-2023 Amorphous sediment LM Ql (Urine sed) 2+ [facility] Basophil percentageOrdered B y: Kevin Barcenas on 04-20-2023 Basophil percentage 10-25 SEEN /hpf 0-5 [facility] Basophils/100 WBC (Bld) 0.9 % 0-1 [facility] Chloride [Moles/Vol] 104 mmol/L 98-107 [facility] Eosinophils/100 WBC (Bld) 1.5 % 0-5 [facility] Glucose [Mass/Vol] 422 mg/dL 74-106 [facility] Comment on above: Glucose result great er than or equal to 200 mg/dLsuggests DIABETES MELLITUS per A.D.A. criteria. Neutrophils (Bld) [#/Vol] 7.6 10*3/uL 2.0-7.7 [facility] Neutrophils/100 WBC (Bld) 61.2 % 47-70 [facility] Potassium [Moles/Vol] 3.8 mmol/L 3.5-5.1 [facility] Sodium [Moles/Vol] 134 mmol/L 136-145 [facility] WBC (Bld) [#/Vol] 12.4 10*3/uL 4.4-11.0 [facility] Bilirubin Test strip Ql (U)O rdered By: Kevin Barcenas on 04-20-2023 Bilirubin Ql (U) Negative Negative [facility] Blood erythrocytes count (nu mber/volume)Ordered By: Kevin Barcenas on 04-20-2023 RBC (Bld) [#/Vol] 4.50 10*6/uL 4.2-5.4 [facility] Blood hemoglobin measurement (mass/volume)Ordered By: Kevin Barcenas on 04-20-2023 Hemoglobin (Bld) [Mass/Vol] 13.1 g/dL 12.0-15.0 [facility] Blood lymphocytes/100 leukoc ytesOrdered By: Kevin Barcenas on 04-20-2023 Lymphocytes/100 WBC (Bld) 26.1 % 19-41 [facility] Blood monocytes/100 leukocyt esOrdered By: Kevin Barcenas on 04-20-2023 Monocytes/100 WBC (Bld) 9.3 % 0-10 [facility] Blood platelet mean volumeOr dered By: Kevin Barcenas on 04-20-2023 Platelet mean volume (Bld) [Entitic vol] 10.7 fL 6.2-12.0 [facility] Culture, urineOrdered By: Puma Barcenas on 04-20-2023 Bacteria identified Cx Nom (U) Morganella morganii sp morgani [facility] Bacteria identified Cx Nom (U) Morganella morganii sp morgani [facility] Determination of erythrocyte mean corpuscular volume (MCV)Ordered By: Kevin Barcenas on 04-20-2023 MCV (RBC) [Entitic vol] 89.1 fL 81-99 [facility] Hematocrit Auto (Bld) [Volum e fraction]Ordered By: Kevin Barcenas on 04-20-2023 Hematocrit (Bld) [Volume fraction] 40.1 % 37-47 [facility] Ketones Test strip Ql (U)Ord ered By: Kevin Barcenas on 04-20-2023 Ketones Ql (U) Negative Negative [facility] Laboratory - Chemistry and C hemistry - challengeOrdered By: Kevin Barcenas on 04-20-2023 CO2 [Moles/Vol] 25.0 mmol/L 21.0-32.0 [facility] Urea nitrogen/Creatinine [Mass ratio] 11.0 mg/mg 10-20 [facility] Laboratory - Hematology and Cell countsOrdered By: Kevin Barcenas on 04-20-2023 Erythrocyte distribution width (RBC) [Entitic vol] 43.6 fL 35.1-43.9 [facility] Erythrocyte distribution width (RBC) [Ratio] 13.4 % 11.6-14.6 [facility] Immature granulocytes/100 WBC (Bld) 1.000 % 0.0-0.9 [facility] Comment on above: IG% - Immature Granu locytes (promyelocytes, myelocytes and metamyelocytes) > 1% indicates that a LEFT SHIFT is Present. MCH (RBC) [Entitic mass] 29.1 pg 27.0-32.0 [facility] Nucleated RBC/100 WBC (Bld) [Ratio] 0 % 0-5 [facility] MCHC Auto (RBC) [Mass/Vol]Or dered By: Kevin Barcenas on 04-20-2023 MCHC (RBC) [Mass/Vol] 32.7 g/dL 32-36 [facility] Mucus LM Ql (Urine sed)Order ed By: Kevin Barcenas on 04-20-2023 Mucus Ql (Urine sed) 0 SEEN /hpf [facility] Nitrite Test strip Ql (U)Ord ered By: Kevin Barcenas on 04-20-2023 Nitrite Ql (U) Positive Negative [facility] No Panel InformationOrdered By: Kevin Barcenas on 04-20-2023 Estimated Creatinine Clearance Calc 55.87 ml/min [facility] Estimated GFR (MDRD) Amer 78 mL/min >60 [facility] Comment on above: GFR Calc Estimated GFR (MDRD) Non-Af Amer 65 mL/min >60 [facility] Comment on above: Non- GFR Calc Platelets bldOrdered By: Nigel Barcenas on 04-20-2023 Platelets (Bld) [#/Vol] 281 10*3/uL 150-450 [facility] Protein Test strip Ql (U)Ord ered By: Kevin Barcenas on 04-20-2023 Protein Ql (U) 30 mg/dl Negative [facility] Serum or plasma calcium thi urement (mass/volume)Ordered By: Kevin Barcenas on 04-20-2023 Calcium [Mass/Vol] 8.8 mg/dL 8.5-10.1 [facility] Serum or plasma creatinine m easurement (mass/volume)Ordered By: Kevin Barcenas on 04-20-2023 Creatinine [Mass/Vol] 1.00 mg/dL 0.55-1.02 [facility] Comment on above: The validity of the calculated GFR & GFRAA in patients over 70 years has not been determined. Clinical correlation is essential. Serum or plasma urea nitroge n measurement (mass/volume)Ordered By: Kevin Barcenas on 04-20-2023 Urea nitrogen [Mass/Vol] 11 mg/dL 7-18 [facility] Squamous epithelial cells de tection in urine sediment by light microscopyOrdered By: Kevin Barcenas on 04-20-2023 Epithelial cells.squamous LM Ql (Urine sed) 0 SEEN /hpf 5-10 [facility] Thin prep Papanicolaou smear with manual screeningOrdered By: Kevin Barcenas on 04-20-2023 Thin prep Papanicolaou smear with manual screening 5 5-15 [facility] Urine blood detectionOrdered By: Kevin Barcenas on 04-20-2023 RBC Ql (U) 10 /ul Negative [facility] RBC Ql (U) 0 SEEN /hpf 0-5 [facility] Urine clarityOrdered By: Nigel Barcenas on 04-20-2023 Clarity (U) Sl. Cloudy Clear [facility] Urine color determinationOrd ered By: Kevin Barcenas on 04-20-2023 Color (U) Yellow Yellow [facility] Urine glucose detectionOrder ed By: Kevin Barcenas on 04-20-2023 Glucose Ql (U) 1000 mg/dl Normal [facility] Urine leukocyte esterase det ection by dipstickOrdered By: Kevin Barcenas on 04-20-2023 Leukocyte esterase Test strip Ql (U) 500 /ul Negative [facility] Urine pHOrdered By: Kevin giron on 04-20-2023 pH (U) 7.0 [pH] 5.0 - 8.0 [facility] Urine sediment bacteria coun t by microscopy (number/high power field)Ordered By: Kevin Barcenas on 04-20-2023 Bacteria LM.HPF (Urine sed) [#/Area] 2 /[HPF] None Seen [facility] Urine specific gravity measu rementOrdered By: Kevin Barcenas on 04-20-2023 Specific gravity (U) [Rel density] 1.010 1.002-1.03 0 [facility] Urobilinogen Auto test strip Ql (U)Ordered By: Kevin Barcenas on 04-20-2023 Urobilinogen Ql (U) Normal mg/dl Normal [facility] US THYROID BIOPSY RIGHT (POC ) SURG USE ONLYon 04-13-2023 [facility] .Auto Diffon 02-25-2023 Basophil, Absolute 0.1 10 3/mcL Normal 0.0-0.2 On license of [facility] ([place]) Comment on above: Performed By: #### G FR, CMP, ANEU, ADIFF, CBC ####[address], [place] [address] Basophils/100 WBC (Bld) 0.7 % Normal 0.0-2.5 A [facility] ([place]) Comment on above: Performed By: #### G FR, CMP, ANEU, ADIFF, CBC ####[address], [place] [address] Eosinophil, Absolute 0.2 10 3/mcL Normal 0.0-0.4 [facility] ([place]) Comment on above: Performed By: #### G FR, CMP, ANEU, ADIFF, CBC ####[address], [place] [address] Eosinophils/100 WBC (Bld) 1.7 % Normal 0.0-7.0 [facility] ([place]) Comment on above: Performed By: #### G FR, CMP, ANEU, ADIFF, CBC ####[address], [place] [address] Lymphocyte, Absolute 4.0 10 3/mcL High 0.8-3.9 [facility] ([place]) Comment on above: Performed By: #### G FR, CMP, ANEU, ADIFF, CBC ####[address], [place] [address] Lymphocytes/100 WBC (Bld) 34.5 % Normal 10.0-50.0 [facility] ([place]) Comment on above: Performed By: #### G FR, CMP, ANEU, ADIFF, CBC ####[address] [place], [place] [address] Monocyte, Absolute 1.2 10 3/mcL High 0.2-1.0 On license of [facility] ([place]) Comment on above: Performed By: #### G FR, CMP, ANEU, ADIFF, CBC ####[address] [place], [place] [address] Monocytes/100 WBC (Bld) 10.8 % Normal 1.7-13.0 [facility] ([place]) Comment on above: Performed By: #### G FR, CMP, ANEU, ADIFF, CBC ####[address] [place], [place] [address] Neutrophils/100 WBC (Bld) 52.3 % Normal 37.0-80.0 [facility] ([place]) Comment on above: Performed By: #### G FR, CMP, ANEU, ADIFF, CBC ####[address] [place], [place] [address] .GFRon 02-25-2023 GFR 69 ml/min/1.73sqm Normal [facility] ([place]) Comment on above: Result Comment: GFR Population [...] G FR, CMP, ANEU, ADIFF, CBC ####[address] [place], [place] [address] GFR Non- 57 ml/min/1.73sqm Normal [facility] ([place]) Comment on above: Result Comment: GFR Population [...] FR, CMP, ANEU, ADIFF, CBC ####[address] [place], [place] [address] .NEUABSon 02-25-2023 Neutrophil, Absolute 6.0 10 3/mcL Normal 2.9-6.2 [facility] ([place]) Comment on above: Performed By: #### G FR, CMP, ANEU, ADIFF, CBC ####[address] [place], [place] [address] CBCon 02-25-2023 Erythrocyte distribution width (RBC) [Ratio] 14.7 % High 11.5-14.5 [facility] ([place]) Comment on above: Performed By: #### G FR, CMP, ANEU, ADIFF, CBC ####[address] [place], [place] [address] Hematocrit (Bld) [Volume fraction] 39.8 % Normal 37.0-47.0 [facility] ([place]) Comment on above: Performed By: #### G FR, CMP, ANEU, ADIFF, CBC ####[address] [place], [place] [address] Hgb 12.8 G/dL Normal 12.0-16.0 [facility] ([place]) Comment on above: Performed By: #### G FR, CMP, ANEU, ADIFF, CBC ####[address] [place], [place] [address] MCH (RBC) [Entitic mass] 29.2 pg Normal 27.0-31.2 [facility] ([place]) Comment on above: Performed By: #### G FR, CMP, ANEU, ADIFF, CBC ####[address] [place], [place] [address] MCHC 32.2 G/dL Low 33.0-37.0 [facility] ([place]) Comment on above: Performed By: #### G FR, CMP, ANEU, ADIFF, CBC ####[address] [place], [place] [address] MCV (RBC) [Entitic vol] 90.7 fL Normal 80.0-94.0 A [facility] ([place]) Comment on above: Performed By: #### G FR, CMP, ANEU, ADIFF, CBC ####[address] [place], [place] [address] Platelet 233 10 3/mcL Normal 130-400 [facility] ([place]) Comment on above: Performed By: #### G FR, CMP, ANEU, ADIFF, CBC ####[address] [place], [place] [address] Platelet mean volume (Bld) [Entitic vol] 8.7 fL Normal 7.4-10.4 [facility] ([place]) Comment on above: Performed By: #### G FR, CMP, ANEU, ADIFF, CBC ####[address] [place], [place] [address] RBC 4.38 10 6/mcL Normal 4.20-5.40 [facility] ([place] Comment on above: Performed By: #### G FR, CMP, ANEU, ADIFF, CBC ####[address] [place], [place] [address] WBC 11.5 10 3/mcL High 4.6-10.8 [facility] ([place]) Comment on above: Performed By: #### G FR, CMP, ANEU, ADIFF, CBC ####[address] [place], [place] [address] CMPon 02-25-2023 Albumin Level 3.1 G/dL Low 3.5-5.0 [facility] ([place]) Comment on above: Performed By: #### G FR, CMP, ANEU, ADIFF, CBC ####[address] [place], [place] [address] Albumin/Globulin [Mass ratio] 0.9 {ratio} Low 1.1-2.5 [facility] ([place]) Comment on above: Performed By: #### G FR, CMP, ANEU, ADIFF, CBC ####[address] [place], [place] [address] ALP [Catalytic activity/Vol] 82 U/L Normal 40-135 [facility] ([place]) Comment on above: Performed By: #### G FR, CMP, ANEU, ADIFF, CBC ####[address] [place], [place] [address] ALT [Catalytic activity/Vol] 30 U/L Normal 14-59 [facility] ([place]) Comment on above: Performed By: #### G FR, CMP, ANEU, ADIFF, CBC ####[address] [place], [place] [address] AST [Catalytic activity/Vol] 17 U/L Normal 10-40 [facility] ([place]) Comment on above: Performed By: #### G FR, CMP, ANEU, ADIFF, CBC ####[address] [place], [place] [address] Bili Total 0.2 mg/dL Normal 0.2-1.0 [facility] ([place]) Comment on above: Result Comment: Use of this assay is not recommended for patients undergoing treatment with eltrombopag due to the potential for falsely elevated results. Performed By: #### G FR, CMP, ANEU, ADIFF, CBC ####[address] [place], [place] [address] BUN/Creatinine Ratio 18 ratio Normal 7-27 On license of [facility] ([place]) Comment on above: Performed By: #### G FR, CMP, ANEU, ADIFF, CBC ####[address] [place], [place] [address] Calcium [Mass/Vol] 8.5 mg/dL Normal 8.4-10.2 [facility] ([place]) Comment on above: Performed By: #### G FR, CMP, ANEU, ADIFF, CBC ####[address] [place], [place] [address] Chloride [Moles/Vol] 102 mmol/L Normal 98-107 On license of [facility] ([place]) Comment on above: Performed By: #### G FR, CMP, ANEU, ADIFF, CBC ####[address] [place], [place] [address] CO2 [Moles/Vol] 27 mmol/L Normal 22-29 [facility] ([place]) Comment on above: Performed By: #### G FR, CMP, ANEU, ADIFF, CBC ####[address] [place], [place] [address] Creatinine [Mass/Vol] 1.06 mg/dL High 0.55-1.02 [facility] ([place]) Comment on above: Performed By: #### G FR, CMP, ANEU, ADIFF, CBC ####[address] [place], [place] [address] Electrolyte Balance 10.0 mEq/L Normal 4.0-15.0 [facility] ([place]) Comment on above: Performed By: #### G FR, CMP, ANEU, ADIFF, CBC ####[address] [place], [place] [address] Globulin 3.6 G/dL Normal [facility] ([place]) Comment on above: Performed By: #### G FR, CMP, ANEU, ADIFF, CBC ####[address] [place], [place] [address] Glucose [Mass/Vol] 238 mg/dL High 70-105 [facility] ([place]) Comment on above: Performed By: #### G FR, CMP, ANEU, ADIFF, CBC ####[address] [place], [place] [address] Potassium [Moles/Vol] 3.6 mmol/L Normal 3.5-5.1 [facility] ([place]) Comment on above: Performed By: #### G FR, CMP, ANEU, ADIFF, CBC ####[address] [place], [place] [address] Sodium [Moles/Vol] 139 mmol/L Normal 136-145 [facility] ([place]) Comment on above: Performed By: #### G FR, CMP, ANEU, ADIFF, CBC ####[address] [place], [place] [address] Total Protein 6.7 G/dL Normal 6.4-8.2 [facility] ([place]) Comment on above: Performed By: #### G FR, CMP, ANEU, ADIFF, CBC ####[address] [place], [place] [address] Urea nitrogen [Mass/Vol] 19 mg/dL High 7-18 [facility] ([place]) Comment on above: Performed By: #### G FR, CMP, ANEU, ADIFF, CBC ####[address] [place], [place] [address] CURon 02-25-2023 [facility] ([place]) LABORATORYOrdered By: Eileen Mendez on 02-25-2023 Glucose [Mass/Vol] 109 mg/dL Invalid Interpretation Code 70 - 110 mg/dL [facility] Glucose [Mass/Vol] 148 mg/dL Invalid Interpretation Code 70 - 110 mg/dL [facility] Glucose [Mass/Vol] 223 mg/dL Invalid Interpretation Code 70 - 110 mg/dL [facility] LABORATORYOrdered By: SYSTEM SYSTEM on 02-25-2023 [...] 02-25-2023 Magnesium [Mass/Vol] 2.0 mg/dL Normal 1.8-2.4 On license of [facility] ([place]) Comment on above: Performed By: #### M G ####[address] [place], [place] [address] .Auto Diffon 02-24-2023 Basophil, Absolute 0.1 10 3/mcL Normal 0.0-0.2 On license of [facility] ([place]) Comment on above: Performed By: #### A CHRIS, CMP, ADIFF, GFR, CBC ####[address] [place], [place] [address] Basophils/100 WBC (Bld) 0.5 % Normal 0.0-2.5 A [facility] ([place]) Comment on above: Performed By: #### A CHRIS, CMP, ADIFF, GFR, CBC ####[address] [place], [place] [address] Eosinophil, Absolute 0.2 10 3/mcL Normal 0.0-0.4 [facility] ([place]) Comment on above: Performed By: #### A CHRIS, CMP, ADIFF, GFR, CBC ####[address] [place], [place] [address] Eosinophils/100 WBC (Bld) 1.7 % Normal 0.0-7.0 [facility] ([place]) Comment on above: Performed By: #### A CHRIS, CMP, ADIFF, GFR, CBC ####[address] [place], [place] [address] Lymphocyte, Absolute 4.9 10 3/mcL High 0.8-3.9 [facility] ([place]) Comment on above: Performed By: #### A CHRIS, CMP, ADIFF, GFR, CBC ####[address] [place], [place] [address] Lymphocytes/100 WBC (Bld) 40.2 % Normal 10.0-50.0 [facility] ([place]) Comment on above: Performed By: #### A CHRIS, CMP, ADIFF, GFR, CBC ####[address] [place], [place] [address] Monocyte, Absolute 1.1 10 3/mcL High 0.2-1.0 On license of [facility] ([place]) Comment on above: Performed By: #### A CHRIS, CMP, ADIFF, GFR, CBC ####[address] [place], [place] [address] Monocytes/100 WBC (Bld) 9.4 % Normal 1.7-13.0 [facility] ([place]) Comment on above: Performed By: #### A CHRIS, CMP, ADIFF, GFR, CBC ####[address] [place], [place] [address] Neutrophils/100 WBC (Bld) 48.2 % Normal 37.0-80.0 [facility] ([place]) Comment on above: Performed By: #### A CHRIS, CMP, ADIFF, GFR, CBC ####[address] [place], [place] [address] .GFRon 02-24-2023 GFR 67 ml/min/1.73sqm Normal [facility] ([place]) Comment on above: Result Comment: GFR Population [...] A CHRIS, CMP, ADIFF, GFR, CBC ####[address] [place], [place] [address] GFR Non- 55 ml/min/1.73sqm Normal [facility] ([place]) Comment on above: Result Comment: GFR Population [...] CHRIS, CMP, ADIFF, GFR, CBC ####[address] [place], [place] [address] .NEUABSon 02-24-2023 Neutrophil, Absolute 5.9 10 3/mcL Normal 2.9-6.2 [facility] ([place]) Comment on above: Performed By: #### A CHRIS, CMP, ADIFF, GFR, CBC ####[address] [place], [place] [address] CBCon 02-24-2023 Erythrocyte distribution width (RBC) [Ratio] 14.6 % High 11.5-14.5 [facility] ([place]) Comment on above: Performed By: #### A CHRIS, CMP, ADIFF, GFR, CBC ####[address] [place], [place] [address] Hematocrit (Bld) [Volume fraction] 36.1 % Low 37.0-47.0 [facility] ([place]) Comment on above: Performed By: #### A CHRIS, CMP, ADIFF, GFR, CBC ####[address] [place], [place] [address] Hgb 12.0 G/dL Normal 12.0-16.0 [facility] ([place]) Comment on above: Performed By: #### A CHRIS, CMP, ADIFF, GFR, CBC ####[address] [place], [place] [address] MCH (RBC) [Entitic mass] 28.9 pg Normal 27.0-31.2 [facility] ([place]) Comment on above: Performed By: #### A CHRIS, CMP, ADIFF, GFR, CBC ####[address] [place], [place] [address] MCHC 33.3 G/dL Normal 33.0-37.0 [facility] ([place]) Comment on above: Performed By: #### A CHRIS, CMP, ADIFF, GFR, CBC ####[address] [place], [place] [address] MCV (RBC) [Entitic vol] 86.8 fL Normal 80.0-94.0 A [facility] ([place] Comment on above: Performed By: #### A CHRIS, CMP, ADIFF, GFR, CBC ####[address] [place], [place] [address] Platelet 249 10 3/mcL Normal 130-400 [facility] ([place]) Comment on above: Performed By: #### A CHRIS, CMP, ADIFF, GFR, CBC ####[address] [place], [place] [address] Platelet mean volume (Bld) [Entitic vol] 8.9 fL Normal 7.4-10.4 [facility] ([place]) Comment on above: Performed By: #### A CHRIS, CMP, ADIFF, GFR, CBC ####[address] [place], [place] [address] RBC 4.16 10 6/mcL Low 4.20-5.40 [facility] ([place]) Comment on above: Performed By: #### A CHRIS, CMP, ADIFF, GFR, CBC ####[address] [place], [place] [address] WBC 12.2 10 3/mcL High 4.6-10.8 [facility] ([place]) Comment on above: Performed By: #### A CHRIS, CMP, ADIFF, GFR, CBC ####[facility] [place], [place] [address] CMPon 02-24-2023 Albumin Level 3.0 G/dL Low 3.5-5.0 [facility] ([place]) Comment on above: Performed By: #### A CHRIS, CMP, ADIFF, GFR, CBC ####[address] [place], [place] [address] Albumin/Globulin [Mass ratio] 0.9 {ratio} Low 1.1-2.5 [facility] ([place]) Comment on above: Performed By: #### A CHRIS, CMP, ADIFF, GFR, CBC ####[address] [place], [place] [address] ALP [Catalytic activity/Vol] 70 U/L Normal 40-135 [facility] ([place]) Comment on above: Performed By: #### A CHRIS, CMP, ADIFF, GFR, CBC ####[address] [address] ALT [Catalytic activity/Vol] 34 U/L Normal 14-59 [facility] ([place]) Comment on above: Performed By: #### A CHRIS, CMP, ADIFF, GFR, CBC ####[address] [place], [place] [address] AST [Catalytic activity/Vol] 16 U/L Normal 10-40 [facility] ([place]) Comment on above: Performed By: #### A CHRIS, CMP, ADIFF, GFR, CBC ####[facility] [place], [place] [address] Bili Total 0.2 mg/dL Normal 0.2-1.0 [facility] ([place]) Comment on above: Result Comment: Use of this assay is not recommended for patients undergoing treatment with eltrombopag due to the potential for falsely elevated results. Performed By: #### A CHRIS, CMP, ADIFF, GFR, CBC ####[facility] [place], [place] [address] BUN/Creatinine Ratio 17 ratio Normal 7-27 On license of [facility] ([place]) Comment on above: Performed By: #### A CHRIS, CMP, ADIFF, GFR, CBC ####[address] [place], [place] [address] Calcium [Mass/Vol] 8.3 mg/dL Low 8.4-10.2 [facility] ([place]) Comment on above: Performed By: #### A CHRIS, CMP, ADIFF, GFR, CBC ####[address] [place], [place] [address] Chloride [Moles/Vol] 103 mmol/L Normal 98-107 On license of [facility] ([place]) Comment on above: Performed By: #### A CHRIS, CMP, ADIFF, GFR, CBC ####[address] [place], [place] [address] CO2 [Moles/Vol] 29 mmol/L Normal 22-29 [facility] ([place]) Comment on above: Performed By: #### A CHRIS, CMP, ADIFF, GFR, CBC ####[address] [place], [place] [address] Creatinine [Mass/Vol] 1.09 mg/dL High 0.55-1.02 [facility] ([place]) Comment on above: Performed By: #### A CHRIS, CMP, ADIFF, GFR, CBC ####[address] [place], [place] [address] Electrolyte Balance 10.0 mEq/L Normal 4.0-15.0 [facility] ([place]) Comment on above: Performed By: #### A CHRIS, CMP, ADIFF, GFR, CBC ####[address] [place], [place] [address] Globulin 3.5 G/dL Normal [facility] ([place]) Comment on above: Performed By: #### A CHRIS, CMP, ADIFF, GFR, CBC ####[address] [place], [place] [address] Glucose [Mass/Vol] 114 mg/dL High 70-105 [facility] ([place]) Comment on above: Performed By: #### A CHRIS, CMP, ADIFF, GFR, CBC ####[facility] [place], [place] [address] Potassium [Moles/Vol] 3.9 mmol/L Normal 3.5-5.1 [facility] ([place]) Comment on above: Performed By: #### A CHRIS, CMP, ADIFF, GFR, CBC ####[address] [place], [place] [address] Sodium [Moles/Vol] 142 mmol/L Normal 136-145 [facility] ([place] Comment on above: Performed By: #### A CHRIS, CMP, ADIFF, GFR, CBC ####[address] [place], [place] [address] Total Protein 6.5 G/dL Normal 6.4-8.2 [facility] ([place]) Comment on above: Performed By: #### A CHRIS, CMP, ADIFF, GFR, CBC ####[address] [place], [place] [address] Urea nitrogen [Mass/Vol] 19 mg/dL High 7-18 [facility] ([place]) Comment on above: Performed By: #### A CHRIS, CMP, ADIFF, GFR, CBC ####[place] [address] [place], [place] [address] LABORATORYOrdered By: Jordan Shine on 02-24-2023 Blood Glucose Testing Reason Routine (02/24/23 9:11 PM) [facility] LABORATORYOrdered By: SYSTEM SYSTEM on 02-24-2023 [...] 02-24-2023 Magnesium [Mass/Vol] 1.7 mg/dL Low 1.8-2.4 On license of [facility] ([place]) Comment on above: Performed By: #### M G ###[address] [place], [place] [address] .Auto Diffon 02-23-2023 Basophil, Absolute 0.2 10 3/mcL Normal 0.0-0.2 On license of [facility] ([place]) Comment on above: Performed By: #### C BC, ANEU, GFR, CMP, ADIFF ###[address] [place], [place] [address] Basophils/100 WBC (Bld) 1.4 % Normal 0.0-2.5 A [facility] ([place] Comment on above: Performed By: #### C BC, ANEU, GFR, CMP, ADIFF ####[address] [place], [place] [address] Eosinophil, Absolute 0.1 10 3/mcL Normal 0.0-0.4 [facility] ([place]) Comment on above: Performed By: #### C BC, ANEU, GFR, CMP, ADIFF ####[address] [place], [place] [address] Eosinophils/100 WBC (Bld) 0.7 % Normal 0.0-7.0 [facility] ([place]) Comment on above: Performed By: #### C BC, ANEU, GFR, CMP, ADIFF ####[address] [place], [place] [address] Lymphocyte, Absolute 3.2 10 3/mcL Normal 0.8-3.9 [facility] ([place]) Comment on above: Performed By: #### C BC, ANEU, GFR, CMP, ADIFF ####[address] [place], [place] [address] Lymphocytes/100 WBC (Bld) 19.5 % Normal 10.0-50.0 [facility] ([place]) Comment on above: Performed By: #### C BC, ANEU, GFR, CMP, ADIFF ####[address] [place], [place] [address] Monocyte, Absolute 1.3 10 3/mcL High 0.2-1.0 On license of [facility] ([place]) Comment on above: Performed By: #### C BC, ANEU, GFR, CMP, ADIFF ####[address] [place], [place] [address] Monocytes/100 WBC (Bld) 8.1 % Normal 1.7-13.0 [facility] ([place]) Comment on above: Performed By: #### C BC, ANEU, GFR, CMP, ADIFF ####[address] [place], [place] [address] Neutrophils/100 WBC (Bld) 70.3 % Normal 37.0-80.0 [facility] ([place]) Comment on above: Performed By: #### C BC, ANEU, GFR, CMP, ADIFF ####[address] [place], [place] [address] .GFRon 02-23-2023 GFR Non- 55 ml/min/1.73sqm Normal [facility] ([place]) Comment on above: Result Comment: GFR Population [...] BC, ANEU, GFR, CMP, ADIFF ####[address] [place], [place] [address] GFR 66 ml/min/1.73sqm Normal [facility] ([place]) Comment on above: Result Comment: GFR [...] C BC, ANEU, GFR, CMP, ADIFF ####[address] [place], [place] [address] .NEUABSon 02-23-2023 Neutrophil, Absolute 11.5 10 3/mcL High 2.9-6.2 A [facility] ([place] Comment on above: Performed By: #### C BC, ANEU, GFR, CMP, ADIFF ####[address] [place], [place] [address] CBCon 02-23-2023 Erythrocyte distribution width (RBC) [Ratio] 14.6 % High 11.5-14.5 [facility] ([place]) Comment on above: Performed By: #### C BC, ANEU, GFR, CMP, ADIFF ####[address] [place], [place] [address] Hematocrit (Bld) [Volume fraction] 35.4 % Low 37.0-47.0 [facility] ([place]) Comment on above: Performed By: #### C BC, ANEU, GFR, CMP, ADIFF ####[address] [place], [place] [address] Hgb 11.7 G/dL Low 12.0-16.0 [facility] ([place]) Comment on above: Performed By: #### C BC, ANEU, GFR, CMP, ADIFF ####[address] [place], [place] [address] MCH (RBC) [Entitic mass] 28.9 pg Normal 27.0-31.2 [facility] ([place]) Comment on above: Performed By: #### C BC, ANEU, GFR, CMP, ADIFF ####[address] [place], [place] [address] MCHC 33.2 G/dL Normal 33.0-37.0 [facility] ([place]) Comment on above: Performed By: #### C BC, ANEU, GFR, CMP, ADIFF ####[address] [place], [place] [address] MCV (RBC) [Entitic vol] 87.1 fL Normal 80.0-94.0 A [facility] ([place] Comment on above: Performed By: #### C BC, ANEU, GFR, CMP, ADIFF ####[address] [place], [place] [address] Platelet 222 10 3/mcL Normal 130-400 [facility] ([place]) Comment on above: Performed By: #### C BC, ANEU, GFR, CMP, ADIFF ####[address] [place], [place] [address] Platelet mean volume (Bld) [Entitic vol] 9.1 fL Normal 7.4-10.4 [facility] ([place]) Comment on above: Performed By: #### C BC, ANEU, GFR, CMP, ADIFF ####[address] [place], [place] [address] RBC 4.06 10 6/mcL Low 4.20-5.40 [facility] ([place]) Comment on above: Performed By: #### C BC, ANEU, GFR, CMP, ADIFF ####[address] [place], [place] [address] WBC 16.4 10 3/mcL High 4.6-10.8 [facility] ([place]) Comment on above: Performed By: #### C BC, ANEU, GFR, CMP, ADIFF ####[address] [place], [place] [address] CMPon 02-23-2023 Albumin Level 3.0 G/dL Low 3.5-5.0 [facility] ([place]) Comment on above: Performed By: #### C BC, ANEU, GFR, CMP, ADIFF ####[address] [place], [place] [address] Albumin/Globulin [Mass ratio] 0.8 {ratio} Low 1.1-2.5 [facility] ([place]) Comment on above: Performed By: #### C BC, ANEU, GFR, CMP, ADIFF ####[address] [place], [place] [address] ALP [Catalytic activity/Vol] 80 U/L Normal 40-135 [facility] ([place]) Comment on above: Performed By: #### C BC, ANEU, GFR, CMP, ADIFF ####[address] [place], [place] [address] ALT [Catalytic activity/Vol] 37 U/L Normal 14-59 [facility] ([place]) Comment on above: Performed By: #### C BC, ANEU, GFR, CMP, ADIFF ####[address] [place], [place] [address] AST [Catalytic activity/Vol] 15 U/L Normal 10-40 [facility] ([place]) Comment on above: Performed By: #### C BC, ANEU, GFR, CMP, ADIFF ####[address] [place], [place] [address] Bili Total 0.3 mg/dL Normal 0.2-1.0 [facility] ([place]) Comment on above: Result Comment: Use of this assay is not recommended for patients undergoing treatment with eltrombopag due to the potential for falsely elevated results. Performed By: #### C BC, ANEU, GFR, CMP, ADIFF ####[address] [place], [place] [address] BUN/Creatinine Ratio 21 ratio Normal 7-27 On license of [facility] ([place]) Comment on above: Performed By: #### C BC, ANEU, GFR, CMP, ADIFF ####[address] [place], [place] [address] Calcium [Mass/Vol] 8.0 mg/dL Low 8.4-10.2 [facility] ([place] Comment on above: Performed By: #### C BC, ANEU, GFR, CMP, ADIFF ####[address] [place], [place] [address] Chloride [Moles/Vol] 105 mmol/L Normal 98-107 On license of [facility] ([place]) Comment on above: Performed By: #### C BC, ANEU, GFR, CMP, ADIFF ####[place] [place], [place] [address] CO2 [Moles/Vol] 24 mmol/L Normal 22-29 [facility] ([place]) Comment on above: Performed By: #### C BC, ANEU, GFR, CMP, ADIFF ####[address] [place], [place] [address] Creatinine [Mass/Vol] 1.10 mg/dL High 0.55-1.02 [facility] ([place]) Comment on above: Performed By: #### C BC, ANEU, GFR, CMP, ADIFF ####[address] [place], [place] [address] Electrolyte Balance 10.0 mEq/L Normal 4.0-15.0 [facility] ([place]) Comment on above: Performed By: #### C BC, ANEU, GFR, CMP, ADIFF ####[address] [place], [place] [address] Globulin 3.7 G/dL Normal [facility] ([place]) Comment on above: Performed By: #### C BC, ANEU, GFR, CMP, ADIFF ####[address] [place], [place] [address] Glucose [Mass/Vol] 202 mg/dL High 70-105 [facility] ([place] Comment on above: Performed By: #### C BC, ANEU, GFR, CMP, ADIFF ####[address] [place], [place] [address] Potassium [Moles/Vol] 4.0 mmol/L Normal 3.5-5.1 [facility] ([place]) Comment on above: Performed By: #### C BC, ANEU, GFR, CMP, ADIFF ####[address] [place], [place] [address] Sodium [Moles/Vol] 139 mmol/L Normal 136-145 [facility] ([place] Comment on above: Performed By: #### C BC, ANEU, GFR, CMP, ADIFF ####[address] [place], [place] [address] Total Protein 6.7 G/dL Normal 6.4-8.2 [facility] ([place]) Comment on above: Performed By: #### C BC, ANEU, GFR, CMP, ADIFF ####[address] [place], [place] [address] Urea nitrogen [Mass/Vol] 23 mg/dL High 7-18 [facility] ([place] Comment on above: Performed By: #### C BC, ANEU, GFR, CMP, ADIFF ####[address] [place], [place] [address] LABORATORYOrdered By: Chantell De Jesus on 02-23-2023 Blood Glucose Testing Reason Routine (02/23/23 9:25 PM) [facility] LABORATORYOrdered By: Friendsurance SYSTEM on 02-23-2023 Albumin BCP dye [Mass/Vol] [...] 02-23-2023 Magnesium [Mass/Vol] 1.9 mg/dL Normal 1.8-2.4 On license of [facility] ([place]) Comment on above: Performed By: #### M G ####[address] [place], [place] [address] .Auto Diffon 02-22-2023 Basophil, Absolute 0.0 10 3/mcL Normal 0.0-0.2 On license of [facility] ([place]) Comment on above: Performed By: #### C MP, ADIFF, ANEU, GFR, CBC, MG ####[address], [place] [address] Basophils/100 WBC (Bld) 0.1 % Normal 0.0-2.5 A [facility] ([place]) Comment on above: Performed By: #### C MP, ADIFF, ANEU, GFR, CBC, MG ####[address] [place], [place] [address] Eosinophil, Absolute 0.0 10 3/mcL Normal 0.0-0.4 [facility] ([place]) Comment on above: Performed By: #### C MP, ADIFF, ANEU, GFR, CBC, MG ####[address] [place], [place] [address] Eosinophils/100 WBC (Bld) 0.1 % Normal 0.0-7.0 [facility] ([place]) Comment on above: Performed By: #### C MP, ADIFF, ANEU, GFR, CBC, MG ####[address] [place], [place] [address] Lymphocyte, Absolute 1.0 10 3/mcL Normal 0.8-3.9 [facility] ([place]) Comment on above: Performed By: #### C MP, ADIFF, ANEU, GFR, CBC, MG ####Sarwat [address] [place], [place] [address] Lymphocytes/100 WBC (Bld) 8.4 % Low 10.0-50.0 [facility] ([place]) Comment on above: Performed By: #### C MP, ADIFF, ANEU, GFR, CBC, MG ####Sarwat [address] [place], [place] [address] Monocyte, Absolute 0.2 10 3/mcL Normal 0.2-1.0 On license of [facility] ([place]) Comment on above: Performed By: #### C MP, ADIFF, ANEU, GFR, CBC, MG ####Sarwat [address], [place] [address] Monocytes/100 WBC (Bld) 1.6 % Low 1.7-13.0 A [facility] ([place]) Comment on above: Performed By: #### C MP, ADIFF, ANEU, GFR, CBC, MG ####Sarwat [address], [place] [address] Neutrophils/100 WBC (Bld) 89.8 % High 37.0-80.0 [facility] ([place]) Comment on above: Performed By: #### C MP, ADIFF, ANEU, GFR, CBC, MG ####Sarwat [address], [place] [address] .GFRon 02-22-2023 GFR 62 ml/min/1.73sqm Normal [facility] ([place]) Comment on above: Result Comment: GFR Population [...] MP, ADIFF, ANEU, GFR, CBC, MG ####[address]ra [address] [place], [place] [address] GFR Non- 51 ml/min/1.73sqm Normal [facility] ([place]) Comment on above: Result Comment: GFR Population [...] ADIFF, ANEU, GFR, CBC, MG ####Sarwat [address], [place] [address] .NEUABSon 02-22-2023 Neutrophil, Absolute 11.1 10 3/mcL High 2.9-6.2 A [facility] ([place]) Comment on above: Performed By: #### C MP, ADIFF, ANEU, GFR, CBC, MG ####Sarwat [address], [place] [address] CBCon 02-22-2023 Erythrocyte distribution width (RBC) [Ratio] 14.5 % Normal 11.5-14.5 [facility] ([place]) Comment on above: Performed By: #### C MP, ADIFF, ANEU, GFR, CBC, MG ####Sarwat [address], [place] [address] Hematocrit (Bld) [Volume fraction] 37.9 % Normal 37.0-47.0 [facility] ([place]) Comment on above: Performed By: #### C MP, ADIFF, ANEU, GFR, CBC, MG ####Sarwat [address], [place] [address] Hgb 12.5 G/dL Normal 12.0-16.0 [facility] ([place]) Comment on above: Performed By: #### C MP, ADIFF, ANEU, GFR, CBC, MG ####Sarwat [address], [place] [address] MCH (RBC) [Entitic mass] 29.2 pg Normal 27.0-31.2 [facility] ([place]) Comment on above: Performed By: #### C MP, ADIFF, ANEU, GFR, CBC, MG ####Sarwat [address], [place] [address] MCHC 33.1 G/dL Normal 33.0-37.0 [facility] ([place]) Comment on above: Performed By: #### C MP, ADIFF, ANEU, GFR, CBC, MG ####Sarwat [address], [place] [address] MCV (RBC) [Entitic vol] 88.2 fL Normal 80.0-94.0 A [facility] ([place]) Comment on above: Performed By: #### C MP, ADIFF, ANEU, GFR, CBC, MG ####Sarwat [address], [place] [address] Platelet 216 10 3/mcL Normal 130-400 [facility] ([place]) Comment on above: Performed By: #### C MP, ADIFF, ANEU, GFR, CBC, MG ####Sarwat [address], [place] [address] Platelet mean volume (Bld) [Entitic vol] 9.4 fL Normal 7.4-10.4 [facility] ([place]) Comment on above: Performed By: #### C MP, ADIFF, ANEU, GFR, CBC, MG ####Sarwat [address], [place] [address] RBC 4.29 10 6/mcL Normal 4.20-5.40 [facility] ([place]) Comment on above: Performed By: #### C MP, ADIFF, ANEU, GFR, CBC, MG ####Sarwat [address], [place] [address] WBC 12.4 10 3/mcL High 4.6-10.8 [facility] ([place]) Comment on above: Performed By: #### C MP, ADIFF, ANEU, GFR, CBC, MG ####Sarwat [address], [place] [address] CMPon 02-22-2023 Albumin Level 3.3 G/dL Low 3.5-5.0 [facility] ([place]) Comment on above: Performed By: #### C MP, ADIFF, ANEU, GFR, CBC, MG ####Sarwat [address], [place] [address] Albumin/Globulin [Mass ratio] 0.9 {ratio} Low 1.1-2.5 [facility] ([place]) Comment on above: Performed By: #### C MP, ADIFF, ANEU, GFR, CBC, MG ####Sarwat [address], [place] [address] ALP [Catalytic activity/Vol] 83 U/L Normal 40-135 [facility] ([place]) Comment on above: Performed By: #### C MP, ADIFF, ANEU, GFR, CBC, MG ####Sarwat [address], [place] [address] ALT [Catalytic activity/Vol] 40 U/L Normal 14-59 [facility] ([place]) Comment on above: Performed By: #### C MP, ADIFF, ANEU, GFR, CBC, MG ####Sarwat [address], [place] [address] AST [Catalytic activity/Vol] 25 U/L Normal 10-40 [facility] ([place]) Comment on above: Performed By: #### C MP, ADIFF, ANEU, GFR, CBC, MG ####Sarwat [address], [place] [address] Bili Total 0.4 mg/dL Normal 0.2-1.0 [facility] ([place]) Comment on above: Result Comment: Use of this assay is not recommended for patients undergoing treatment with eltrombopag due to the potential for falsely elevated results. Performed By: #### C MP, ADIFF, ANEU, GFR, CBC, MG ####Sarwat [address], [place] [address] BUN/Creatinine Ratio 15 ratio Normal 7-27 On license of [facility] ([place]) Comment on above: Performed By: #### C MP, ADIFF, ANEU, GFR, CBC, MG ####Sarwat [address], [place] [address] Calcium [Mass/Vol] 8.2 mg/dL Low 8.4-10.2 [facility] ([place]) Comment on above: Performed By: #### C MP, ADIFF, ANEU, GFR, CBC, MG ####Sarwat [address], [place] [address] Chloride [Moles/Vol] 99 mmol/L Normal 98-107 On license of [facility] ([place]) Comment on above: Performed By: #### C MP, ADIFF, ANEU, GFR, CBC, MG ####[address]wat[address], [place] [address] CO2 [Moles/Vol] 24 mmol/L Normal 22-29 [facility] ([place]) Comment on above: Performed By: #### C MP, ADIFF, ANEU, GFR, CBC, MG ####[address]wat[address], [place] [address] Creatinine [Mass/Vol] 1.17 mg/dL High 0.55-1.02 [facility] ([place]) Comment on above: Performed By: #### C MP, ADIFF, ANEU, GFR, CBC, MG ####Sarwat [address], [place] [address] Electrolyte Balance 9.0 mEq/L Normal 4.0-15.0 [facility] ([place]) Comment on above: Performed By: #### C MP, ADIFF, ANEU, GFR, CBC, MG ####Sarwat [address], [place] [address] Globulin 3.8 G/dL Normal [facility] ([place]) Comment on above: Performed By: #### C MP, ADIFF, ANEU, GFR, CBC, MG ####[address]wat[address], [place] [address] Glucose [Mass/Vol] 508 mg/dL Critically abnormal 70-105 [facility] ([place]) Comment on above: Performed By: #### C MP, ADIFF, ANEU, GFR, CBC, MG ####Sarwat [address], [place] [address] Potassium [Moles/Vol] 4.7 mmol/L Normal 3.5-5.1 [facility] ([place]) Comment on above: Performed By: #### C MP, ADIFF, ANEU, GFR, CBC, MG ####Sarwat [address], [place] [address] Sodium [Moles/Vol] 132 mmol/L Low 136-145 [facility] ([place]) Comment on above: Performed By: #### C MP, ADIFF, ANEU, GFR, CBC, MG ####Sarwat [address] [place], [place] [address] Total Protein 7.1 G/dL Normal 6.4-8.2 [facility] ([place]) Comment on above: Performed By: #### C MP, ADIFF, ANEU, GFR, CBC, MG ####Sarwat [address], [place] [address] Urea nitrogen [Mass/Vol] 18 mg/dL Normal 7-18 [facility]) Comment on above: Performed By: #### C MP, ADIFF, ANEU, GFR, CBC, MG ####Sarwat [address], [place] [address] CT ABD/PELVIS W/ IV CONTRAST ONLYon 02-22-2023 CT ABD/PELVIS W/ IV CONTRAST ONLY Normal [facility] ([place]) CT ANGIOGRAPHY CHEST W/CONTR Hernandez 02-22-2023 CT ANGIOGRAPHY CHEST W/CONTRAST Normal [facility]) MGon 02-22-2023 Magnesium [Mass/Vol] 1.9 mg/dL Normal 1.8-2.4 [facility]) Comment on above: Performed By: #### C MP, ADIFF, ANEU, GFR, CBC, MG ####Sarwat [address], [place] [address] TOBRAMYCIN:SUSC:PT:ISOLATE:O RDQN:MICon 02-22-2023 Tobramycin KURT [Susc] >100,000 cfu/ml Pseudomonas aeruginosa 50,000 - 100,000 cfu/ml [place] parapsilosis Contact Microbiology within 72 hours if further identification is indicated ([id number]). [place] counts from a single urine are equivocal in determining infection vs. colonization of yeast. Multiple cultures at least 24 hours apart may be helpful in differentiating colonization from infection. [facility] Tobramycin KURT [[facility]]on 01-28 Op[place] parapsilosis Opal parapsilosis [facility] Pseudomonas aeruginosa Pseudomonas aeruginosa [facility] .Auto Diffon 02-21-2023 Basophil, Absolute 0.1 10 3/mcL Normal 0.0-0.2 On license of [facility] ([place]) Comment on above: Performed By: #### A BECKY PEREZ MDW, DIMER, CBC ####[address], [place] [address] Basophils/100 WBC (Bld) 1.0 % Normal 0.0-2.5 A [facility] ([place]) Comment on above: Performed By: #### A BECKY PEREZ MDW, DIMER, CBC ####Sarwat [address], [place] [address] Eosinophil, Absolute 0.1 10 3/mcL Normal 0.0-0.4 [facility] ([place]) Comment on above: Performed By: #### A BECKY PEREZ MDW, DIMER, CBC ####Sarwat [address] [place], [place] [address] Eosinophils/100 WBC (Bld) 0.7 % Normal 0.0-7.0 [facility] ([place]) Comment on above: Performed By: #### A BECKY PEREZ MDW, DIMER, CBC ####Sarwat [address], [place] [address] Lymphocyte, Absolute 2.0 10 3/mcL Normal 0.8-3.9 [facility] ([place]) Comment on above: Performed By: #### A BECKY PEREZ MDW, DIMER, CBC ####Sarwat [address], [place] [address] Lymphocytes/100 WBC (Bld) 18.1 % Normal 10.0-50.0 [facility] ([place]) Comment on above: Performed By: #### A BECKY PEREZ MDW, DIMER, CBC ####Sar[address] [place], [place] [address] Monocyte, Absolute 1.1 10 3/mcL High 0.2-1.0 On license of [facility] ([place]) Comment on above: Performed By: #### A BECKY PEREZ MDW, DIMER, CBC ####Sar[address], [place] [address] Monocytes/100 WBC (Bld) 10.1 % Normal 1.7-13.0 A [facility] ([place]) Comment on above: Performed By: #### A BECKY PEREZ MDW, DIMER, CBC ####Sar[address] [place], [place] [address] Neutrophils/100 WBC (Bld) 70.1 % Normal 37.0-80.0 [facility] ([place]) Comment on above: Performed By: #### A BECKY PEREZ MDW, DIMER, CBC ####Sarwat [address] [place], [place] [address] .GFRon 02-21-2023 GFR 77 ml/min/1.73sqm Normal [facility] ([place]) Comment on above: Result Comment: GFR Population [...] ROPHS, LIP, CMP, GFR, PBNP ####Sarwat [address], [place] [address] GFR Non- 63 ml/min/1.73sqm Normal [facility] ([place]) Comment on above: Result Comment: GFR Population [...] ROPHS, LIP, CMP, GFR, PBNP ####Sarwat [address] [place] [address] .MDWon 02-21-2023 Monocyte Distribution Width 24.70 High 0.00-20.00 [facility] ([place]) Comment on above: Result Comment: For adults in ED, MDW>20.0 may be associated with a higher risk of sepsis during the first 12hrs of hospital admission Performed By: #### A BECKY PEREZ MDW, DIMER, CBC ####Sarwat [address], [place] [address] .NEUABSon 02-21-2023 Neutrophil, Absolute 7.8 10 3/mcL High 2.9-6.2 [facility] ([place]) Comment on above: Performed By: #### A BECKY PEREZ MDW, DIMER, CBC ####Sarwat [address], [place] [address] .Urinalysis Microscopic (AO) on 02-21-2023 UA Bacteria 1+ /hpf Abnormal [facility] ([place]) Comment on above: Performed By: #### U A, UAMICAO ####[address] [place] [address] UA RBC 10-15 Abnormal None Seen [facility] ([place]) Comment on above: Performed By: #### U A, UAMICAO ####Sarwat [address], [place] [address] UA Squam Epithelial 0-5 Abnormal None Seen [facility] ([place]) Comment on above: Performed By: #### U Odalys, UAMICAO ####Sarwat [address], [place] [address] UA WBC LOADED Abnormal None Seen [facility] ([place]) Comment on above: Performed By: #### U A, UAMICAO ####[address], [place] [address] UA Yeast 1+ /hpf Abnormal [facility] ([place]) Comment on above: Performed By: #### Alexander Morrow UAMICAO ####[address], [place] [address] CBCon 02-21-2023 Erythrocyte distribution width (RBC) [Ratio] 14.4 % Normal 11.5-14.5 [facility] ([place]) Comment on above: Performed By: #### A BECKY PEREZ MDW, DIMER, CBC ####Sar[address] [place], [place] [address] Hematocrit (Bld) [Volume fraction] 40.8 % Normal 37.0-47.0 [facility] ([place]) Comment on above: Performed By: #### A BECKY PEREZ MDW, DIMER, CBC ####Sarwat [address], [place] [address] Hgb 13.5 G/dL Normal 12.0-16.0 [facility] ([place]) Comment on above: Performed By: #### A BECKY PEREZ MDW, DIMER, CBC ####[address], [place] [address] MCH (RBC) [Entitic mass] 28.9 pg Normal 27.0-31.2 [facility] ([place]) Comment on above: Performed By: #### A BECKY PEREZ MDW, DIMER, CBC ####Sarwat [address], [place] [address] MCHC 33.0 G/dL Normal 33.0-37.0 [facility] ([place]) Comment on above: Performed By: #### A BECKY PEREZ MDW, DIMER, CBC ####Sar[address], [place] [address] MCV (RBC) [Entitic vol] 87.4 fL Normal 80.0-94.0 A [facility] ([place]) Comment on above: Performed By: #### A BECKY PEREZ MDW, DIMER, CBC ####Sar[address], [place] [address] Platelet 219 10 3/mcL Normal 130-400 [facility] ([place]) Comment on above: Performed By: #### A BECKY PEREZ MDW, DIMER, CBC ####Sar[address], [place] [address] Platelet mean volume (Bld) [Entitic vol] 8.6 fL Normal 7.4-10.4 [facility] ([place]) Comment on above: Performed By: #### A BECKY PEREZ MDW, DIMER, CBC ####[address], [place] [address] RBC 4.67 10 6/mcL Normal 4.20-5.40 [facility] ([place]) Comment on above: Performed By: #### A BECKY PEREZ MDW, DIMER, CBC ####[address], [place] [address] WBC 11.1 10 3/mcL High 4.6-10.8 [facility] ([place]) Comment on above: Performed By: #### A BECKY PEREZ MDW, DIMER, CBC ####[address], [place] [address] CMPon 02-21-2023 Albumin Level 3.8 G/dL Normal 3.5-5.0 [facility] ([place]) Comment on above: Performed By: #### T ROPHS, LIP, CMP, GFR, PBNP ####Sar[address], [place] [address] Albumin/Globulin [Mass ratio] 0.9 {ratio} Low 1.1-2.5 [facility] ([place]) Comment on above: Performed By: #### T ROPHS, LIP, CMP, GFR, PBNP ####Sar[address], [place] [address] ALP [Catalytic activity/Vol] 83 U/L Normal 40-135 [facility] ([place]) Comment on above: Performed By: #### T ROPHS, LIP, CMP, GFR, PBNP ####Sarwat [address], [place] [address] ALT [Catalytic activity/Vol] 38 U/L Normal 14-59 [facility] ([place]) Comment on above: Performed By: #### T ROPHS, LIP, CMP, GFR, PBNP ####Sarwat [address], [place] [address] AST [Catalytic activity/Vol] 25 U/L Normal 10-40 [facility] ([place]) Comment on above: Performed By: #### T ROPHS, LIP, CMP, GFR, PBNP ####Sar[address], [place] [address] Bili Total 0.4 mg/dL Normal 0.2-1.0 [facility] ([place]) Comment on above: Result Comment: Use of this assay is not recommended for patients undergoing treatment with eltrombopag due to the potential for falsely elevated results. Performed By: #### T ROPHS, LIP, CMP, GFR, PBNP ####Sar[address], [place] [address] BUN/Creatinine Ratio 13 ratio Normal 7-27 On license of [facility] ([place]) Comment on above: Performed By: #### T ROPHS, LIP, CMP, GFR, PBNP ####Sar[address], [place] [address] Calcium [Mass/Vol] 9.0 mg/dL Normal 8.4-10.2 [facility] ([place]) Comment on above: Performed By: #### T ROPHS, LIP, CMP, GFR, PBNP ####Sarwat [address] [place], [place] [address] Chloride [Moles/Vol] 99 mmol/L Normal 98-107 On license of [facility] ([place]) Comment on above: Performed By: #### T LASHELL, JENNIFER, CMP, GFR, PBNP ####[address], [place] [address] CO2 [Moles/Vol] 26 mmol/L Normal 22-29 [facility] ([place]) Comment on above: Performed By: #### T LASHELL, LIP, CMP, GFR, PBNP ####Sarwat [address], [place] [address] Creatinine [Mass/Vol] 0.97 mg/dL Normal 0.55-1.02 [facility] ([place]) Comment on above: Performed By: #### T LASHELL, LIP, CMP, GFR, PBNP ####Sar[address], [place] [address] Electrolyte Balance 10.0 mEq/L Normal 4.0-15.0 [facility] ([place]) Comment on above: Performed By: #### T LASHELL, LIP, CMP, GFR, PBNP ####[address], [place] [address] Globulin 4.1 G/dL Normal [facility] ([place]) Comment on above: Performed By: #### T LASHELL, JENNIFER, CMP, GFR, PBNP ####Sarwat [address], [place] [address] Glucose [Mass/Vol] 214 mg/dL High 70-105 [facility] ([place]) Comment on above: Performed By: #### T LASHELL, LIP, CMP, GFR, PBNP ####[address], [place] [address] Potassium [Moles/Vol] 4.1 mmol/L Normal 3.5-5.1 [facility] ([place]) Comment on above: Performed By: #### T LASHELL, LIP, CMP, GFR, PBNP ####Sar[address], [place] [address] Sodium [Moles/Vol] 135 mmol/L Low 136-145 [facility] ([place]) Comment on above: Performed By: #### T LASHELL, LIP, CMP, GFR, PBNP ####Sarwat [address], [place] [address] Total Protein 7.9 G/dL Normal 6.4-8.2 [facility] ([place]) Comment on above: Performed By: #### T ROPHS, LIP, CMP, GFR, PBNP ####Sarwat [address], [place] [address] Urea nitrogen [Mass/Vol] 13 mg/dL Normal 7-18 [facility] ([place]) Comment on above: Performed By: #### T ROPHS, LIP, CMP, GFR, PBNP ####Sarwat [address], [place] [address] DIMERon 02-21-2023 D-Dimer 766 ng/mL D-DU High 0-230 [facility] ([place]) Comment on above: Result Comment: Resu lts [...] A BECKY PEREZ MDW, DIMER, CBC ####Sarwat [address] [place], [place] [address] LABORATORYOrdered By: Sylvia Fletcher on 02-21-2023 Appearance [...] 02-21-2023 Lipase Level 39 U/L Normal 16-77 [facility] ([place]) Comment on above: Performed By: #### T ROPHS, LIP, CMP, GFR, PBNP ####Sar[address] [place], [place] [address] PBNPon 02-21-2023 Natriuretic peptide B (Bld) [Mass/Vol] 17 pg/mL Normal 0-125 [facility] ([place]) Comment on above: Result Comment: NT-p roBNP results of less than 300 pg/mL effectivelyrules out acute congestive heart failure with 99% negative predictive value. Performed By: #### T ROPHS, LIP, CMP, GFR, PBNP ####[address] [place], [place] [address] TROPHSon 02-21-2023 Troponin I High Sensitivity <4.0 Normal 0.0-51.4 [facility] ([place]) Comment on above: Performed By: #### T ROPHS, LIP, CMP, GFR, PBNP ####[address] [place], [place] [address] UAon 02-21-2023 Color (U) Yellow Normal [facility] ([place]) Comment on above: Performed By: #### U A, UAMICAO ####Sar[address] [place] [address] Glucose (U) [Mass/Vol] Negative Normal Negative [facility] ([place]) Comment on above: Performed By: #### U A, UAMICAO ####Sar[address] [place] [address] Ketones Ql (U) Negative Normal Negative [facility] ([place]) Comment on above: Performed By: #### U A, UAMICAO ####[address] [place] [address] UA Appear Slightly Cloudy Abnormal Clear [facility] ([place]) Comment on above: Performed By: #### U A, UAMICAO ####[address] [place], [place] [address] UA Blood Small Abnormal Negative [facility] ([place]) Comment on above: Performed By: #### U A, UAMICAO ####[address], [place] [address] UA Leuk Est Large Abnormal Negative [facility] ([place]) Comment on above: Performed By: #### U A, UAMICAO ####Sar[address] [place] [id number] UA Nitrite Negative Normal Negative [facility] ([place]) Comment on above: Performed By: #### U A, UAMICAO ####[address] [place] [address] UA pH 6.0 Normal 5.0 - 8.0 [facility] ([place]) Comment on above: Performed By: #### U A, UAMICAO ####[address] [place] [address] UA Protein 100 mg/dL Abnormal Negative [facility] ([place]) Comment on above: Performed By: #### U A, UAMICAO ####[address] [place] [address] UA Spec Grav 1.025 Normal 1.015-1.02 5 [facility] ([place]) Comment on above: Performed By: #### U A, UAMICAO ####[address] [place] [address] UA Specimen Type Clean Catch Normal [facility] ([place]) Comment on above: Performed By: #### U A, UAMICAO ####[address] [place] [address] UA Urobilinogen 0.2 E.U./dL Normal 0.2-1.0 [facility] ([place]) Comment on above: Performed By: #### U A, UAMICAO ####[address] [place] [address] Urobilinogen (U) [Mass/Vol] Negative Normal Negative [facility] ([place]) Comment on above: Performed By: #### U A, UAMICAO ####Sarwat [address] [place] [address] XR CHEST 1 VIEWon 02-21-2023 XR CHEST 1 VIEW Normal [facility] ([place]) Absolute lymphocyte countOrd ered By: Dre Deal on 02-02-2023 Lymphocytes Auto (Unsp spec) [#/Vol] 1.73 10*3/uL 0.83-4.51 [facility] Basophil percentageOrdered B y: Dre Deal on 02-02-2023 Basophil percentage 50-100 SEEN /hpf 0-5 [facility] Basophils/100 WBC (Bld) 0.3 % 0-1 [facility] Chloride [Moles/Vol] 103 mmol/L 98-107 [facility] Eosinophils/100 WBC (Bld) 0.3 % 0-5 [facility] Glucose [Mass/Vol] 202 mg/dL 74-106 [facility] Comment on above: Glucose result great er than or equal to 200 mg/dLsuggests DIABETES MELLITUS per A.D.A. criteria. Lactate [Moles/Vol] 1.2 mmol/L 0.4-2.0 [facility] Neutrophils (Bld) [#/Vol] 14.1 10*3/uL 2.0-7.7 [facility] Neutrophils/100 WBC (Bld) 81.9 % 47-70 [facility] Potassium [Moles/Vol] 4.0 mmol/L 3.5-5.1 [facility] Sodium [Moles/Vol] 132 mmol/L 136-145 [facility] WBC (Bld) [#/Vol] 17.2 10*3/uL 4.4-11.0 [facility] Bilirubin Test strip Ql (U)O rdered By: Dre Deal on 02-02-2023 Bilirubin Ql (U) Negative Negative [facility] Blood erythrocytes count (nu mber/volume)Ordered By: Dre Deal on 02-02-2023 RBC (Bld) [#/Vol] 4.60 10*6/uL 4.2-5.4 [facility] Blood hemoglobin measurement (mass/volume)Ordered By: Dre Deal on 02-02-2023 Hemoglobin (Bld) [Mass/Vol] 13.3 g/dL 12.0-15.0 [facility] Blood lymphocytes/100 leukoc ytesOrdered By: Dre Deal on 02-02-2023 Lymphocytes/100 WBC (Bld) 10.0 % 19-41 [facility] Blood monocytes/100 leukocyt esOrdered By: Dre Deal on 02-02-2023 Monocytes/100 WBC (Bld) 6.9 % 0-10 [facility] Blood platelet mean volumeOr dered By: Dre Deal on 02-02-2023 Platelet mean volume (Bld) [Entitic vol] 10.4 fL 6.2-12.0 [facility] Culture, urineOrdered By: Dominic Deal on 02-02-2023 Bacteria identified Cx Nom (U) Klebsiella pneumoniae sp pneum [facility] Determination of erythrocyte mean corpuscular volume (MCV)Ordered By: Dre Deal on 02-02-2023 MCV (RBC) [Entitic vol] 88.7 fL 81-99 [facility] Hematocrit Auto (Bld) [Volum e fraction]Ordered By: Dre Deal on 02-02-2023 Hematocrit (Bld) [Volume fraction] 40.8 % 37-47 [facility] Ketones Test strip Ql (U)Ord ered By: Dre Deal on 02-02-2023 Ketones Ql (U) Negative Negative [facility] Laboratory - Chemistry and C hemistry - challengeOrdered By: Dre Deal on 02-02-2023 CO2 [Moles/Vol] 23.0 mmol/L 21.0-32.0 [facility] Urea nitrogen/Creatinine [Mass ratio] 13.9 mg/mg 10-20 [facility] Laboratory - Hematology and Cell countsOrdered By: Dre Deal on 02-02-2023 Erythrocyte distribution width (RBC) [Entitic vol] 43.2 fL 35.1-43.9 [facility] Erythrocyte distribution width (RBC) [Ratio] 13.4 % 11.6-14.6 [facility] Immature granulocytes/100 WBC (Bld) 0.600 % 0.0-0.9 [facility] Comment on above: IG% - Immature Granu locytes (promyelocytes, myelocytes and metamyelocytes) > 1% indicates that a LEFT SHIFT is Present. MCH (RBC) [Entitic mass] 28.9 pg 27.0-32.0 [facility] Nucleated RBC/100 WBC (Bld) [Ratio] 0 % 0-5 [facility] MCHC Auto (RBC) [Mass/Vol]Or dered By: Dre Deal on 02-02-2023 MCHC (RBC) [Mass/Vol] 32.6 g/dL 32-36 [facility] Mucus LM Ql (Urine sed)Order ed By: Dre Deal on 02-02-2023 Mucus Ql (Urine sed) 0 SEEN /hpf [facility] Nitrite Test strip Ql (U)Ord ered By: Dregermán Deal on 02-02-2023 Nitrite Ql (U) Negative Negative [facility] No Panel InformationOrdered By: Dre Deal on 02-02-2023 Estimated GFR (MDRD) Amer 78 mL/min >60 [facility] Comment on above: GFR Calc Estimated GFR (MDRD) Non-Af Amer 64 mL/min >60 [facility] Comment on above: Non- GFR Calc Platelets bldOrdered By: Dre Deal on 02-02-2023 Platelets (Bld) [#/Vol] 201 10*3/uL 150-450 [facility] Protein Test strip Ql (U)Ord ered By: Dre Deal on 02-02-2023 Protein Ql (U) 100 mg/dl Negative [facility] Serum or plasma calcium thi urement (mass/volume)Ordered By: Dre Deal on 02-02-2023 Calcium [Mass/Vol] 9.3 mg/dL 8.5-10.1 [facility] Serum or plasma creatinine m easurement (mass/volume)Ordered By: Dre Deal on 02-02-2023 Creatinine [Mass/Vol] 1.01 mg/dL 0.55-1.02 [facility] Comment on above: The validity of the calculated GFR & GFRAA in patients over 70 years has not been determined. Clinical correlation is essential. Serum or plasma urea nitroge n measurement (mass/volume)Ordered By: Dre eDal on 02-02-2023 Urea nitrogen [Mass/Vol] 14 mg/dL 7-18 [facility] Squamous epithelial cells de tection in urine sediment by light microscopyOrdered By: Dre Deal on 02-02-2023 Epithelial cells.squamous LM Ql (Urine sed) 0-5 SEEN /hpf 5-10 [facility] Thin prep Papanicolaou smear with manual screeningOrdered By: Dre Deal on 02-02-2023 Thin prep Papanicolaou smear with manual screening 6 5-15 [facility] Urine blood detectionOrdered By: Dre Deal on 02-02-2023 RBC Ql (U) 250 /ul Negative [facility] RBC Ql (U) 10-25 SEEN /hpf 0-5 [facility] Urine clarityOrdered By: Dre Deal on 02-02-2023 Clarity (U) Cloudy Clear [facility] Urine color determinationOrd ered By: Dre Deal on 02-02-2023 Color (U) Yellow Yellow [facility] Urine glucose detectionOrder ed By: Dre Deal on 02-02-2023 Glucose Ql (U) Normal mg/dl Normal [facility] Urine leukocyte esterase det ection by dipstickOrdered By: Dre Deal on 02-02-2023 Leukocyte esterase Test strip Ql (U) 500 /ul Negative [facility] Urine pHOrdered By: Dre zimmerman on 02-02-2023 pH (U) 6.0 [pH] 5.0 - 8.0 [facility] Urine sediment bacteria coun t by microscopy (number/high power field)Ordered By: Dre Deal on 02-02-2023 Bacteria LM.HPF (Urine sed) [#/Area] 0 /[HPF] None Seen [facility] Urine specific gravity measu rementOrdered By: Dre Deal on 02-02-2023 Specific gravity (U) [Rel density] 1.015 1.002-1.03 0 [facility] Urobilinogen Auto test strip Ql (U)Ordered By: Dre Deal on 02-02-2023 Urobilinogen Ql (U) Normal mg/dl Normal [facility] HbA1c (Bld)on 01-16-2023 Average glucose Estimated from glycated hemoglobin (Bld) [Mass/Vol] 275 mg/dL [facility] HbA1c (Bld) [Mass fraction] 11.2 % High 4.3 - 5.6 % [facility] EMERGENCY REPORTon 3 EMERGENCY REPORT [facility] EMERGENCY ROOM REPORT NAME ACCOUNT SEX AGE ADMIT DISCHARGE PT MED. RECORD# NUMBER DATE DATE TYPE UVALDO, [id number] F 42 12/18/22 3 DEBBY [id number] ROOM: ER DATE OF : 1980 DICTATING PHYSICIAN: Andrew Johansen ADDENDUM EMERGENCY DEPARTMENT COURSE AND TREATMENT: I assumed care of this patient upon my arrival. We were awaiting disposition. We talked to [facility] but they do not have urology coverage through the weekend and were thus unable to take her. That being the case, checked elsewhere with [facility] as they are [facility] associated. DIAGNOSES: 1. History of fever with urinary tract infection and pyelonephritis. 2. Multiple other comorbidities. PLAN/DISPOSITION: Did talk to a Dr. Bonilla there and he did accept the patient. She has been stable in the ED in the meantime. Dictated By: Andrew Johansen MD 12/18/22 09:36 JOB #: [id number] Transcribed By: pablo 12/18/22 10:01 Electronically signed by: ZAINAB Johansen M.D. 12/29/22 07:25 Page 1 of 1 [facility]AILON Emergency Room Report Normal [facility] Basic metabolic 2000 panelon 12-23-2022 Anion gap [Moles/Vol] 9 mmol/L Normal 5-16 [facility] Comment on above: Order Comment: Speci men Type: BLOOD SPECIMEN Ordering Facility: [facility] Address: [address] [place] [address] Performed By: #### 2 4323-8 #### [facility] CLIA [id number] [address] [place] [address] [place] Calcium [Mass/Vol] 8.8 mg/dL Normal 8.5-10.5 [facility] Comment on above: Order Comment: Speci men Type: BLOOD SPECIMEN Ordering Facility: [facility] Address: [address] [place] [address] Performed By: #### 2 4323-8 #### [facility] CLIA [id number] [address] [place] [address] [place] Chloride [Moles/Vol] 108 mmol/L High 98-107 [facility] Comment on above: Order Comment: Speci men Type: BLOOD SPECIMEN Ordering Facility: [facility] Address: [address] [place] [address] Performed By: #### 2 4323-8 #### [facility] CLIA [id number] [address] [place] [address] [place] CO2 [Moles/Vol] 25 mmol/L Normal 21-32 [facility] Comment on above: Order Comment: Speci men Type: BLOOD SPECIMEN Ordering Facility: [facility] Address: [address] [place] [address] Performed By: #### 2 4323-8 #### [facility] CLIA [id number] [address] [place] [address] [place] Creatinine [Mass/Vol] 0.87 mg/dL Normal 0.51-0.95 [facility] Comment on above: Order Comment: David pham Type: BLOOD SPECIMEN Ordering Facility: [facility] Address: [address] [place] [address] Result Comment: Janel ents receiving either N-Acetylcysteine (NAC) or Metamizole prior to venipuncture, may have falsely depressed results. Performed By: #### 2 4323-8 #### [facility] CLIA [id number] [address] [place] [address] [place] ESTIMATED GLOMERULAR FILTRATION RATE 86 mL/min/1.73m??? Normal >=60 [facility] Comment on above: Order Comment: David pham Type: BLOOD SPECIMEN Ordering Facility: [facility] Address: [address] [place] [address] Result Comment: Eliza mated Glomerular Filtration Rate [...] GFR. Performed By: #### 2 4323-8 #### [facility] CLIA [id number] [address] [place] [address] [place] Glucose [Mass/Vol] 91 mg/dL Normal 70-100 [facility] Comment on above: Order Comment: David pham Type: BLOOD SPECIMEN Ordering Facility: [facility] Address: [address] [place] [address] Result Comment: The [place] Diabetes Association (ADA) provides guidance for cutoff [...] Standards of Medical Care in Diabetes 2016, [employer]. Diabetes Care. 2016.39(Suppl 1). Results may be falsely elevated after the administration of Sulfapyridine. Results may be falsely depressed after the administration of Sulfasalazine. Performed By: #### 2 4323-8 #### [facility] CLIA [id number] [address] [place] [address] [place] Potassium [Moles/Vol] 4.2 mmol/L Normal 3.5-5.1 [facility] Comment on above: Order Comment: Speci vero Type: BLOOD SPECIMEN Ordering Facility: [facility] Address: [address] [place] [address] Performed By: #### 2 4323-8 #### [facility] CLIA [id number] [address] [place] [address] [place] Sodium [Moles/Vol] 142 mmol/L Normal 136-145 [facility] Comment on above: Order Comment: David pham Type: BLOOD SPECIMEN Ordering Facility: [facility] Address: [address] [place] [address] Performed By: #### 2 4323-8 #### [facility] CLIA [id number] [address] [place] [address] [place] Urea nitrogen [Mass/Vol] 11 mg/dL Normal 7-26 [facility] Comment on above: Order Comment: Ariannai vero Type: BLOOD SPECIMEN Ordering Facility: [facility] Address: [address] [address] Performed By: #### 2 4323-8 #### [facility] CLIA [id number] [address] [place] [address] [place] CBC W Auto Differential pane l (Bld)on 12-23-2022 Basophils (Bld) [#/Vol] 0.06 10*3/uL Normal <0.11 [facility] Comment on above: Order Comment: Speci men Type: BLOOD SPECIMEN Ordering Facility: [facility] Address: [address] [place] [address] Performed By: #### 2 4323-8 #### [facility] CLIA [id number] [address] [place] [address] [place] Basophils/100 WBC (Bld) 0.5 % Normal [facility] Comment on above: Order Comment: Speci men Type: BLOOD SPECIMEN Ordering Facility: [facility] Address: [address] [place] [address] Performed By: #### 2 4323-8 #### [facility] CLIA [id number] [address] [place] [address] [place] Differential cell count method Nom (Bld) Auto Normal [facility] Comment on above: Order Comment: Speci men Type: BLOOD SPECIMEN Ordering Facility: [facility] Address: [address] [address] Performed By: #### 2 4323-8 #### [facility] CLIA [id number] [address] [place] [address] [place] Eosinophils (Bld) [#/Vol] 0.22 10*3/uL Normal <0.46 [facility] Comment on above: Order Comment: Speci men Type: BLOOD SPECIMEN Ordering Facility: [facility] Address: [address] [address] Performed By: #### 2 4323-8 #### [facility] CLIA [id number] [address] [place] [address] [place] Eosinophils/100 WBC (Bld) 2.0 % Normal [facility] Comment on above: Order Comment: Speci men Type: BLOOD SPECIMEN Ordering Facility: [facility] Address: [address] [address] Performed By: #### 2 4323-8 #### [facility] CLIA [id number] [address] [place] [address] [place] Erythrocyte distribution width (RBC) [Ratio] 14.0 % Normal 11.5-15.0 [facility] Comment on above: Order Comment: Speci men Type: BLOOD SPECIMEN Ordering Facility: [facility] Address: [address] [place] [address] Performed By: #### 2 4323-8 #### [facility] CLIA [id number] [address] [place] [address] [place] Hematocrit (Bld) [Volume fraction] 33.6 % Low 36.0-46.0 [facility] Comment on above: Order Comment: Speci men Type: BLOOD SPECIMEN Ordering Facility: [facility] Address: [address] [place] [address] Performed By: #### 2 4323-8 #### [facility] CLIA [id number] [address] [place] [address] [place] Hemoglobin (Bld) [Mass/Vol] 11.2 g/dL Low 11.5-15.5 [facility] Comment on above: Order Comment: Speci men Type: BLOOD SPECIMEN Ordering Facility: [facility] Address: [address] [place] [address] Performed By: #### 2 4323-8 #### [facility] CLIA [id number] [address] [place] [address] [place] Immature granulocytes (Bld) [#/Vol] 0.10 10*3/uL High <0.10 [facility] Comment on above: Order Comment: Speci men Type: BLOOD SPECIMEN Ordering Facility: [facility] Address: [address] [place] [address] Performed By: #### 2 4323-8 #### [facility] CLIA [id number] [address] [place] [address] [place] Immature granulocytes/100 WBC (Bld) 0.9 % Normal [facility] Comment on above: Order Comment: Speci men Type: BLOOD SPECIMEN Ordering Facility: [facility] Address: [address] [address] Performed By: #### 2 4323-8 #### [facility] CLIA [id number] [address] [place] [address] [place] Lymphocytes (Bld) [#/Vol] 2.96 10*3/uL Normal 1.00-4.00 [facility] Comment on above: Order Comment: Speci men Type: BLOOD SPECIMEN Ordering Facility: [facility] Address: [address] [address] Performed By: #### 2 4323-8 #### [facility] CLIA [id number] [address] [place] [address] OF [place] Lymphocytes/100 WBC (Bld) 27.0 % Normal [facility] Comment on above: Order Comment: Speci men Type: BLOOD SPECIMEN Ordering Facility: [facility] Address: [address] [address] Performed By: #### 2 4323-8 #### [facility] CLIA [id number] [address] [place] [address] [place] MCH (RBC) [Entitic mass] 29.0 pg Normal 26.0-34.0 [facility] Comment on above: Order Comment: Speci men Type: BLOOD SPECIMEN Ordering Facility: [facility] Address: [address] [address] Performed By: #### 2 4323-8 #### [facility] CLIA [id number] [address] [place] [address] [place] MCHC (RBC) [Mass/Vol] 33.3 g/dL Normal 30.5-36.0 [facility] Comment on above: Order Comment: Speci men Type: BLOOD SPECIMEN Ordering Facility: [facility] Address: [address] [address] Performed By: #### 2 4323-8 #### [facility] CLIA [id number] [address] [place] [address] [place] MCV (RBC) [Entitic vol] 87.0 fL Normal 80.0-100.0 [facility] Comment on above: Order Comment: Speci men Type: BLOOD SPECIMEN Ordering Facility: [facility] Address: [address] [address] Performed By: #### 2 4323-8 #### [facility] CLIA [id number] [address] [place] [address] [place] Monocytes (Bld) [#/Vol] 0.80 10*3/uL Normal <0.87 [facility] Comment on above: Order Comment: Speci men Type: BLOOD SPECIMEN Ordering Facility: [facility] Address: [address] [address] Performed By: #### 2 4323-8 #### [facility] CLIA [id number] [address] [place] [address] [place] Monocytes/100 WBC (Bld) 7.3 % Normal [facility] Comment on above: Order Comment: Speci men Type: BLOOD SPECIMEN Ordering Facility: [facility] Address: [address] Performed By: #### 2 4323-8 #### [facility] CLIA [id number] [address] [place] [address] [place] Neutrophils (Bld) [#/Vol] 6.84 10*3/uL Normal 1.45-7.50 [facility] Comment on above: Order Comment: Speci men Type: BLOOD SPECIMEN Ordering Facility: [facility] Address: [address] Performed By: #### 2 4323-8 #### [facility] CLIA [id number] [address] [place] [address] [place] Neutrophils/100 WBC (Bld) 62.3 % Normal [facility] Comment on above: Order Comment: Speci men Type: BLOOD SPECIMEN Ordering Facility: [facility] Address: [address] [address] Performed By: #### 2 4323-8 #### [facility] CLIA [id number] [address] [place] [address] [place] Nucleated RBC (Bld) [#/Vol] 10*3/uL Normal <0.01 [facility] Comment on above: Order Comment: Speci men Type: BLOOD SPECIMEN Ordering Facility: [facility] Address: [address] [place] [address] Performed By: #### 2 4323-8 #### [facility] CLIA [id number] [address] [place] [address] [place] Nucleated RBC/100 WBC (Bld) [Ratio] 0.0 /100 WBC Normal [facility] Comment on above: Order Comment: Speci men Type: BLOOD SPECIMEN Ordering Facility: [facility] Address: [address] [place] [address] Performed By: #### 2 4323-8 #### [facility] IA [id number] [address] [place] [address] [place] Platelet mean volume (Bld) [Entitic vol] 10.7 fL Normal 9.0-12.7 [facility] Comment on above: Order Comment: Speci men Type: BLOOD SPECIMEN Ordering Facility: [facility] Address: [address] [place] [address] Performed By: #### 2 4323-8 #### [facility] CLIA [id number] [address] [place] [address] [place] Platelets (Bld) [#/Vol] 293 10*3/uL Normal 150-400 [facility] Comment on above: Order Comment: Speci men Type: BLOOD SPECIMEN Ordering Facility: [facility] Address: [address] [place] [address] Performed By: #### 2 4323-8 #### [facility] CLIA [id number] [address] [place] [address] [place] RBC (Bld) [#/Vol] 3.86 10*6/uL Low 3.90-5.20 [facility] Comment on above: Order Comment: Speci men Type: BLOOD SPECIMEN Ordering Facility: [facility] Address: [place] [address] Performed By: #### 2 4323-8 #### [facility] CLIA [id number] [address] [place] [address] [facility] OF [place]E WBC (Bld) [#/Vol] 10.98 10*3/uL Normal 3.70-11.00 [facility] Comment on above: Order Comment: Speci men Type: BLOOD SPECIMEN Ordering Facility: [facility] Address: [place] [address] Performed By: #### 2 4323-8 #### [facility] CLIA [id number] [address] [place] [address] [facility] EMERGENCY REPORTon 3 EMERGENCY REPORT [facility] EMERGENCY ROOM REPORT NAME ACCOUNT SEX AGE ADMIT DISCHARGE PT MED. RECORD# NUMBER DATE DATE TYPE UVALDO [id number] F 42 12/18/22 12/18/22 3 DEBBY [id number] ROOM: ER DATE OF : 1980 DICTATING [...] and she states she normally goes to [facility]. DIAGNOSIS: UTI, bilateral pyelonephritis, abdominal discomfort and a history of fever. PLAN/DISPOSITION: We called [facility] and they were full. So her care is going to be endorsed to Dr. Johansen at the change of shift. We are awaiting a call back from the [facility] where her family doctor, Dr. Brannon, practices for an admission to that location. Dictated By: Elizabeth Pedroza DO 12/19/22 09:02 JOB #: [id number] Transcribed By: snehal 12/19/22 17:25 Electronically signed by: E-SIGN ELIZABETH PEDROZA DO 12/23/22 19:51 Page 2 of 2 [facility]AILON Emergency Room Report Normal [facility] Magnesium SerPl-mCncon 12-23 Magnesium [Mass/Vol] 1.7 mg/dL Normal 1.6-2.6 [facility] Comment on above: Order Comment: Speci men Type: BLOOD SPECIMEN Ordering Facility: [facility] Address: [address] Performed By: #### 2 4323-8 #### [facility] CLIA [id number] [address] [place], [place] [address] [place] Phosphate SerPl-mCncon 12-23 Phosphate [Mass/Vol] 4.6 mg/dL Normal 2.5-4.9 [facility] Comment on above: Order Comment: Speci men Type: BLOOD SPECIMEN Ordering Facility: [facility] Address: [address] [address] Result Comment: Elev ated m-protein (paraprotein) levels in the serum may be exhibited in patients with monoclonal gammopathies, causing falsely elevated inorganic phosphorus results. Performed By: #### 3 2693-4 #### [facility] CLIA [id number] [address] [place] [address] [place] Basic metabolic 2000 panelon 12-22-2022 Anion gap [Moles/Vol] 11 mmol/L Normal 5-16 [facility] Comment on above: Order Comment: Speci men Type: BLOOD SPECIMEN Ordering Facility: [facility] Address: [address] [place] [address] Performed By: #### 2 4323-8 #### [facility] CLIA [id number] [address] [place] [address] [place] Calcium [Mass/Vol] 8.7 mg/dL Normal 8.5-10.5 [facility] Comment on above: Order Comment: Speci men Type: BLOOD SPECIMEN Ordering Facility: [facility] Address: [address] [address] Performed By: #### 2 4323-8 #### [facility] CLIA [id number] [address] [place] [address] [place] Chloride [Moles/Vol] 110 mmol/L High 98-107 [facility] Comment on above: Order Comment: Speci men Type: BLOOD SPECIMEN Ordering Facility: [facility] Address: [address] [place], [place] [address] Performed By: #### 2 4323-8 #### [facility] CLIA [id number] [address] [place] [address] [place] CO2 [Moles/Vol] 21 mmol/L Normal 21-32 [facility] Comment on above: Order Comment: Speci men Type: BLOOD SPECIMEN Ordering Facility[facility] Address: [address] [address] Performed By: #### 2 4323-8 #### [facility] CLIA [id number] [address] [place] [address] [place] Creatinine [Mass/Vol] 0.94 mg/dL Normal 0.51-0.95 [facility] Comment on above: Order Comment: Speci men Type: BLOOD SPECIMEN Ordering Facility: [facility] Address: [address] [place] [address] Result Comment: Janel ents receiving either N-Acetylcysteine (NAC) or Metamizole prior to venipuncture, may have falsely depressed results. Performed By: #### 2 4323-8 #### [facility] CLIA [id number] [address] [place] [address] [place] ESTIMATED GLOMERULAR FILTRATION RATE 78 mL/min/1.73m??? Normal >=60 [facility] Comment on above: Order Comment: Speci men Type: BLOOD SPECIMEN Ordering Facility: [facility] Address: [address] [place] [address] Result Comment: Eliza mated Glomerular Filtration Rate [...] GFR. Performed By: #### 2 4323-8 #### [facility] CLIA [id number] [address] [place] [address] [place] Glucose [Mass/Vol] 100 mg/dL Normal 70-100 [facility] Comment on above: Order Comment: David pham Type: BLOOD SPECIMEN Ordering Facility: [facility] Address: [address] [place] [address] Result Comment: The [place] Diabetes Association (ADA) provides guidance for cutoff [...] Standards of Medical Care in Diabetes 2016, [place] [employer]. Diabetes Care. 2016.39(Suppl 1). Results may be falsely elevated after the administration of Sulfapyridine. Results may be falsely depressed after the administration of Sulfasalazine. Performed By: #### 2 4323-8 #### [facility] CLIA [id number] [address] [place] [address] [place] Potassium [Moles/Vol] 4.4 mmol/L Normal 3.5-5.1 [facility] Comment on above: Order Comment: David pham Type: BLOOD SPECIMEN Ordering Facility: [facility] Address: [address] [id number] Performed By: #### 2 4323-8 #### [facility] CLIA [id number] [address] [place] [address] [place] Sodium [Moles/Vol] 142 mmol/L Normal 136-145 [facility] Comment on above: Order Comment: David pham Type: BLOOD SPECIMEN Ordering Facility: [facility] Address: [address] [address] Performed By: #### 2 4323-8 #### [facility] CLIA [id number] [address] [place] [address] [place] Urea nitrogen [Mass/Vol] 12 mg/dL Normal 7-26 [facility] Comment on above: Order Comment: Speci men Type: BLOOD SPECIMEN [facility] Address: [address] [address] Performed By: #### 2 4323-8 #### [facility] CLIA [id number] STATES OF [facility] CBC W Auto Differential pane l (Bld)on 12-22-2022 Basophils (Bld) [#/Vol] 0.08 10*3/uL Normal <0.11 [facility] Comment on above: Order Comment: Speci men Type: BLOOD SPECIMENOrdering Facility: [facility] Address: [address] [address] Performed By: #### 5 7021-8 ####[facility]CLIA [id number] [address] STATES [place] Basophils/100 WBC (Bld) 0.8 % Normal [facility] Comment on above: Order Comment: Speci men Type: BLOOD SPECIMENOrdering Facility: [facility] Address: [address] [address] Performed By: #### 5 7021-8 ####[facility]ORY[facility]IA [id number] [address] Differential cell count method Nom (Bld) Auto Normal [facility] Comment on above: Order Comment: Speci men Type: BLOOD SPECIMENOrdering Facility: [facility] Address: [address] [address] Performed By: #### 5 7021-8 ####[facility]ORYCLIA [id number] [place] [address] [place] Eosinophils (Bld) [#/Vol] 0.29 10*3/uL Normal <0.46 [facility] Comment on above: Order Comment: Speci men Type: BLOOD SPECIMENOrdering Facility: [facility] Address: [address] [address] Performed By: #### 5 7021-8 ####[facility]ORYCLIA [id number] [place] [address] [place] Eosinophils/100 WBC (Bld) 2.7 % Normal [facility] Comment on above: Order Comment: Speci men Type: BLOOD SPECIMENOrdering Facility: [facility] Address: [address] [place] [address] Performed By: #### 5 7021-8 ####[facility]ORYCLIA [id number] [place] [address] [place] Erythrocyte distribution width (RBC) [Ratio] 13.9 % Normal 11.5-15.0 [facility] Comment on above: Order Comment: Speci men Type: BLOOD SPECIMENOrdering Facility: [facility] Address: [address] [place] [address] Performed By: #### 5 7021-8 ####[facility]ORYCLIA [id number] [address] [place] Hematocrit (Bld) [Volume fraction] 35.3 % Low 36.0-46.0 [facility] Comment on above: Order Comment: Speci men Type: BLOOD SPECIMENOrdering Facility: [facility] Address: [address] [place] [address] Performed By: #### 5 7021-8 ####[facility]ORYCLIA [id number] [place] [address] [place] Hemoglobin (Bld) [Mass/Vol] 11.7 g/dL Normal 11.5-15.5 [facility] Comment on above: Order Comment: Speci men Type: BLOOD SPECIMENOrdering Facility: [facility] Address: [address] [place] [address] Performed By: #### 5 7021-8 ####[facility]ORYCLIA [id number] [place] [address] [place] Immature granulocytes (Bld) [#/Vol] 0.15 10*3/uL High <0.10 [facility] Comment on above: Order Comment: Speci men Type: BLOOD SPECIMENOrdering Facility: [facility] Address: [address] [address] Performed By: #### 5 7021-8 ####[facility]ORYCLIA [id number] [address] [place] Immature granulocytes/100 WBC (Bld) 1.4 % Normal [facility] Comment on above: Order Comment: Speci men Type: BLOOD SPECIMENOrdering Facility: [facility] Address: [address] [address] Performed By: #### 5 7021-8 ####[facility]ORYCLIA [id number] [place] [address] [place] Lymphocytes (Bld) [#/Vol] 3.43 10*3/uL Normal 1.00-4.00 [facility] Comment on above: Order Comment: Speci men Type: BLOOD SPECIMENOrdering Facility: [facility] Address: [address] [address] Performed By: #### 5 7021-8 ####[facility]ORYCLIA [id number] [address] [place] Lymphocytes/100 WBC (Bld) 32.2 % Normal [facility] Comment on above: Order Comment: Speci men Type: BLOOD SPECIMENOrdering Facility: [facility] Address: [address] [address] Performed By: #### 5 7021-8 ####[facility]ORYCLIA [id number] [place] [address] [place] MCH (RBC) [Entitic mass] 29.3 pg Normal 26.0-34.0 [facility] Comment on above: Order Comment: Speci men Type: BLOOD SPECIMENOrdering Facility: [facility] Address: [address] [place] [address] Performed By: #### 5 7021-8 ####[facility]ORYCLIA [id number] [place] [address] [place] MCHC (RBC) [Mass/Vol] 33.1 g/dL Normal 30.5-36.0 [facility] Comment on above: Order Comment: Speci men Type: BLOOD SPECIMENOrdering Facility: [facility] Address: [address] [address] Performed By: #### 5 7021-8 ####[facility]ORYCLIA [id number] [place] [address] [place] MCV (RBC) [Entitic vol] 88.5 fL Normal 80.0-100.0 [facility] Comment on above: Order Comment: Speci men Type: BLOOD SPECIMENOrdering Facility: [facility] Address: [address] Performed By: #### 5 7021-8 ####[facility]ORYCLIA [id number] [place] [address] [place] Monocytes (Bld) [#/Vol] 0.83 10*3/uL Normal <0.87 [facility] Comment on above: Order Comment: Speci men Type: BLOOD SPECIMENOrdering Facility: [facility] Address: [address] Performed By: #### 5 7021-8 ####[facility]ORYCLIA [id number] [address] OF [place] Monocytes/100 WBC (Bld) 7.8 % Normal [facility] Comment on above: Order Comment: Speci men Type: BLOOD SPECIMENOrdering Facility: [facility] Address: [address] Performed By: #### 5 7021-8 ####[facility]ORYCLIA [id number] [place] [address] [place] Neutrophils (Bld) [#/Vol] 5.88 10*3/uL Normal 1.45-7.50 [facility] Comment on above: Order Comment: Speci men Type: BLOOD SPECIMENOrdering Facility: [facility] Address: [address] Performed By: #### 5 7021-8 ####[facility]ORYCLIA [id number] [place] [address] [place] Neutrophils/100 WBC (Bld) 55.1 % Normal [facility] Comment on above: Order Comment: Speci men Type: BLOOD SPECIMENOrdering Facility: [facility] Address: [address] [address] Performed By: #### 5 7021-8 ####[facility]ORYCLIA [id number] [place] [address] [place] Nucleated RBC (Bld) [#/Vol] 10*3/uL Normal <0.01 [facility] Comment on above: Order Comment: Speci men Type: BLOOD SPECIMENOrdering Facility: [facility] Address: [address] [place] [address] Performed By: #### 5 7021-8 ####[facility]ORYCLIA [id number] [address] [place] Nucleated RBC/100 WBC (Bld) [Ratio] 0.0 /100 WBC Normal [facility] Comment on above: Order Comment: Speci men Type: BLOOD SPECIMENOrdering Facility: [facility] Address: [address] [place] [address] Performed By: #### 5 7021-8 ####[facility]ORYCLIA [id number] [place] [address] [place] Platelet mean volume (Bld) [Entitic vol] 10.3 fL Normal 9.0-12.7 [facility] Comment on above: Order Comment: Speci men Type: BLOOD SPECIMENOrdering Facility: [facility] Address: [address] [place] [address] Performed By: #### 5 7021-8 ####[facility]ORYCLIA [id number] [place] [address] [place] Platelets (Bld) [#/Vol] 253 10*3/uL Normal 150-400 [facility] Comment on above: Order Comment: Speci men Type: BLOOD SPECIMENOrdering Facility: [facility] Address: [address] [id number] Performed By: #### 5 7021-8 ####[facility]ORYCLIA [id number] [address] [id number] [place] RBC (Bld) [#/Vol] 3.99 10*6/uL Normal 3.90-5.20 [facility] Comment on above: Order Comment: Speci men Type: BLOOD SPECIMENOrdering Facility: [facility] Address: [address] Performed By: #### 5 7021-8 ####[facility]ORYCLIA [id number] [address] WBC (Bld) [#/Vol] 10.66 10*3/uL Normal 3.70-11.00 [facility] Comment on above: Order Comment: Speci men Type: BLOOD SPECIMENOrdering Facility: [facility] Address: [address] [address] Performed By: #### 5 7021-8 ####[facility]ORYCLIA [id number] [address] [id number] [facility] OF [place] Magnesium SerPl-mCncon 12-22 Magnesium [Mass/Vol] 1.5 mg/dL Low 1.6-2.6 [facility] Comment on above: Order Comment: Speci men Type: BLOOD SPECIMEN [facility] Address: [address] [address] Performed By: #### 2 4323-8 #### [facility] CLIA [id number] [address] [place] [address] [place] NURSING PROGon 12-22-2022 NURSING PROG HNO ID: [id number] Author: Blaire Milan, VERNON Service: ? Author Type: Registered Nurse Type: Nursing Progress Note Filed: 12/22/2022 10:37 AM Note Text: Pt sates she is SOB, chest discomfort comes and goes feels like something is sitting on her chest , shakiness ,vitals checked, WNL, LIP notified. Dr. Estrella to evaluate PT. Care plan continuing. Normal [facility] Phosphate SerPl-mCncon 12-22 Phosphate [Mass/Vol] 4.8 mg/dL Normal 2.5-4.9 [facility] Comment on above: Order Comment: Speci men Type: BLOOD SPECIMEN [facility] Address: [address] [place] [address] [place] [address] Result Comment: Elev ated m-protein (paraprotein) levels in the serum may be exhibited in patients with monoclonal gammopathies, causing falsely elevated inorganic phosphorus results. Performed By: #### 2 4323-8 #### [facility] CLIA [id number] [address] [place], [place] [id number] [facility] XR ABDOMEN 1V SUPINEon 12-22 XR ABDOMEN [...] prior CT study. IMPRESSION: No acute abnormalities. Newspaper Illustrator: PSCB Transcribe Date/Time: Dec 22 2022 12:31P Dictated by : SOLEDAD BARROSO MD This examination was interpreted and the report reviewed and electronically signed by: SOLEDAD BARROSO MD on Dec 22 2022 12:34PM EST [id number] Normal [facility] XR CHEST 1V FRONTALon 2022 XR CHEST [...] effort with prominence of the lung markings. Newspaper Illustrator: JACI Transcribe Date/Time: Dec 22 2022 12:34P Dictated by : SOLEDAD BARROSO MD This examination was interpreted and the report reviewed and electronically signed by: SOLEDAD BARROSO MD on Dec 22 2022 12:35PM EST [id number] [facility] CASE MGT INIT ANNYESon 2022 [facility]: [id number] Author: Silvia Xiao RN Service: ? Author Type: Registered Nurse Type: Care Mgt Initial Assessment Filed: 12/21/2022 2:03 PM Note Text: CARE MANAGEMENT: ASSESSMENT AND DISCHARGE PLAN SERVICE DATE: December 21, 2022 SERVICE TIME: 1100 PCP: Will Brannon MD Primary Contact: Extended Emergency Contact Information Primary Emergency Contact: Mehdi Bailon Address: [address] [place] [address] [place] Mobile Relation: Spouse Secondary Emergency Contact: Bev Bailon(father in law) Mobile Relation: Relative Father: Eber Eisenberg Mobile Admission Status: Inpatient Insurance Provider: MEDICARE A AND B Discharge Planning requested by: Per Department Practice Potential Transition Plans Home Advance Directives Current Advance Directive: None Maintenance Superintendent Attempted to Assist with AD Completion: Yes [...] General wellness, Be able to go home [place] of Choice Explained: Are you interested in bedside delivery of your medications? No Discharge Planning Participant(s): Patient Patient/Family Comments: Caregiver Assessment: Caregiver is ready, willing and able to meet the patient's needs as recommended by the inter-professional team: Yes Name of Caregiver: Transport at Discharge: Needs Prior to Discharge: Needs Prior to Discharge: To Be Determined;Discharge Prescriptions Post-Acute Discharge Plan: Pt presented [facility] for fever, nausea, and vomiting. Transferred to [facility] for recurrent UTI. Pt lives at [...] 21, 2022 TIME: 11:14 AM CONTACT #: [phone] Normal [facility] CBC W Auto Differential pane l (Bld)on 12-21-2022 Basophils (Bld) [#/Vol] 0.05 10*3/uL Normal <0.11 [facility] Comment on above: Order Comment: Speci men Type: BLOOD SPECIMENOrdering Facility: [facility] Address: [address] [place] [address] [place], [address] [address] Performed By: #### 5 7021-8 ####[facility]ORYCLIA [id number] [place] [address] [place] Basophils/100 WBC (Bld) 0.5 % Normal [facility] Comment on above: Order Comment: Speci men Type: BLOOD SPECIMENOrdering Facility: [facility] Address: [address] [address] Performed By: #### 5 7021-8 ####[facility]ORYCLIA [id number] [address] OF [place] Differential cell count method Nom (Bld) Auto Normal [facility] Comment on above: Order Comment: Speci men Type: BLOOD SPECIMENOrdering Facility: [facility] Address: [address] [place] [address] Performed By: #### 5 7021-8 ####[facility]ORYCLIA [id number] [address] STATES OF [place] Eosinophils (Bld) [#/Vol] 0.29 10*3/uL Normal <0.46 [facility] Comment on above: Order Comment: Speci men Type: BLOOD SPECIMENOrdering Facility: [facility] Address: [address] [place] [address] Performed By: #### 5 7021-8 ####[facility]ORYCLIA [id number] [address] OF [place] Eosinophils/100 WBC (Bld) 3.1 % Normal [facility] Comment on above: Order Comment: Speci men Type: BLOOD SPECIMENOrdering Facility: [facility] Address: [address] [address] Performed By: #### 5 7021-8 ####[facility]ORYCLIA [id number] [address] OF [place] Erythrocyte distribution width (RBC) [Ratio] 14.3 % Normal 11.5-15.0 [facility] Comment on above: Order Comment: Speci men Type: BLOOD SPECIMENOrdering Facility: [facility] Address: [address] [address] Performed By: #### 5 7021-8 ####[facility]ORYCLIA [id number] [place] [address] [place] Hematocrit (Bld) [Volume fraction] 34.4 % Low 36.0-46.0 [facility] Comment on above: Order Comment: Speci men Type: BLOOD SPECIMENOrdering Facility: [facility] Address: [address] [address] Performed By: #### 5 7021-8 ####[facility]ORYCLIA [id number] [place] [address] [place] Hemoglobin (Bld) [Mass/Vol] 11.3 g/dL Low 11.5-15.5 [facility] Comment on above: Order Comment: Speci men Type: BLOOD SPECIMENOrdering Facility: [facility] Address: [address] [address] Performed By: #### 5 7021-8 ####[facility]ORYCLIA [id number] [place] [address] [place] Immature granulocytes (Bld) [#/Vol] 0.14 10*3/uL High <0.10 [facility] Comment on above: Order Comment: Speci men Type: BLOOD SPECIMENOrdering Facility: [facility] Address: [address] [address] Performed By: #### 5 7021-8 ####[facility]ORYCLIA [id number] [place] [address] [place] Immature granulocytes/100 WBC (Bld) 1.5 % Normal [facility] Comment on above: Order Comment: Speci men Type: BLOOD SPECIMENOrdering Facility: [facility] Address: [address] [place] [address] Performed By: #### 5 7021-8 ####[facility]ORYCLIA [id number] [place] [address] [facility] [place] Lymphocytes (Bld) [#/Vol] 3.32 10*3/uL Normal 1.00-4.00 [facility] Comment on above: Order Comment: Speci men Type: BLOOD SPECIMENOrdering Facility: [facility] Address: [address] [address] Performed By: #### 5 7021-8 ####[facility]ORYCLIA [id number] [address] Lymphocytes/100 WBC (Bld) 35.5 % Normal [facility] Comment on above: Order Comment: Speci men Type: BLOOD SPECIMENOrdering Facility: [facility] Address: [address] [address] Performed By: #### 5 7021-8 ####[facility]ORYCLIA [id number] [address] STATES [place] MCH (RBC) [Entitic mass] 29.4 pg Normal 26.0-34.0 [facility] Comment on above: Order Comment: Speci men Type: BLOOD SPECIMENOrdering Facility: [facility] Address: [address] [address] Performed By: #### 5 7021-8 ####[facility]ORYCLIA [id number] [address] STATES [place] MCHC (RBC) [Mass/Vol] 32.8 g/dL Normal 30.5-36.0 [facility] Comment on above: Order Comment: Speci men Type: BLOOD SPECIMENOrdering Facility: [facility] Address: [address] [address] Performed By: #### 5 7021-8 ####[facility]ORYCLIA [id number] [address] STATES [place] MCV (RBC) [Entitic vol] 89.4 fL Normal 80.0-100.0 [facility] Comment on above: Order Comment: Speci men Type: BLOOD SPECIMENOrdering Facility: [facility] Address: [address] [address] Performed By: #### 5 7021-8 ####[facility]ORYCLIA [id number] [place] [address] [place] Monocytes (Bld) [#/Vol] 0.72 10*3/uL Normal <0.87 [facility] Comment on above: Order Comment: Speci men Type: BLOOD SPECIMENOrdering Facility: [facility] Address: [address] [address] Performed By: #### 5 7021-8 ####[facility]ORYCLIA [id number] [place] [address] [place] Monocytes/100 WBC (Bld) 7.7 % Normal [facility] Comment on above: Order Comment: Speci men Type: BLOOD SPECIMENOrdering Facility: [facility] Address: [address] [place] [address] Performed By: #### 5 7021-8 ####[facility]ORYCLIA [id number] [place] [address] [place] Neutrophils (Bld) [#/Vol] 4.84 10*3/uL Normal 1.45-7.50 [facility] Comment on above: Order Comment: Speci men Type: BLOOD SPECIMENOrdering Facility: [facility] Address: [address] [place] [address] Performed By: #### 5 7021-8 ####[facility]ORYCLIA [id number] [place] [address] [place] Neutrophils/100 WBC (Bld) 51.7 % Normal [facility] Comment on above: Order Comment: Speci men Type: BLOOD SPECIMENOrdering Facility: [facility] Address: [address] [place] [address] Performed By: #### 5 7021-8 ####[facility]ORYCLIA [id number] [place] [address] [place] Nucleated RBC (Bld) [#/Vol] 10*3/uL Normal <0.01 [facility] Comment on above: Order Comment: Speci men Type: BLOOD SPECIMENOrdering Facility: [facility] Address: [address] Performed By: #### 5 7021-8 ####[facility]ORYCLIA [id number] [address] OF [place] Nucleated RBC/100 WBC (Bld) [Ratio] 0.0 /100 WBC Normal [facility] Comment on above: Order Comment: Speci men Type: BLOOD SPECIMENOrdering Facility: [facility] Address: [address] [address] Performed By: #### 5 7021-8 ####[facility]ATORYCLIA [id number] [place] [address] [place] Platelet mean volume (Bld) [Entitic vol] 10.8 fL Normal 9.0-12.7 [facility] Comment on above: Order Comment: Speci men Type: BLOOD SPECIMENOrdering Facility: [facility] Address: [address] Performed By: #### 5 7021-8 ####[facility]ATORYCLIA [id number] [place] [address] [place] Platelets (Bld) [#/Vol] 228 10*3/uL Normal 150-400 [facility] Comment on above: Order Comment: Speci men Type: BLOOD SPECIMENOrdering Facility: [facility] Address: [address] Performed By: #### 5 7021-8 ####[facility]ATORYCLIA [id number] [place] [address] [place] RBC (Bld) [#/Vol] 3.85 10*6/uL Low 3.90-5.20 [facility] Comment on above: Order Comment: Speci men Type: BLOOD SPECIMENOrdering Facility: [facility] Address: [address] Performed By: #### 5 7021-8 ####[facility]ATORYCLIA [id number] [address] OF [place] WBC (Bld) [#/Vol] 9.36 10*3/uL Normal 3.70-11.00 [facility] Comment on above: Order Comment: Speci men Type: BLOOD SPECIMENOrdering Facility: [facility] Address: [place] [address] Performed By: #### 5 7021-8 ####[facility]ATORYCLIA [id number] [place] [id number] [facility] CONSULT PROGon 12-21-2022 CONSULT PROG HNO ID: [id number] Author: Abdoul Sepulveda MD Service: Infectious Disease [...] SUBCUTANEOUS AT BEDTIME fluticasone 50 mcg/actuation 2 [place] (FLONASE) 2 [place] EACH NOSTRIL DAILY traZODone 100 mg tab(s) [...] 21, 2022 TIME: 2:18 PM Normal [facility] Comprehensive metabolic 2000 panelon 12-21-2022 Albumin [Mass/Vol] 2.9 g/dL Low 3.2-5.0 [facility] Comment on above: Order Comment: Speci men Type: BLOOD SPECIMENOrdering Facility: [facility] Address: [address] [place] [address] Performed By: #### 2 4323-8 ####[facility]ATORYCLIA [id number] [place] [address] [place] ALP [Catalytic activity/Vol] 71 U/L Normal 45-117 [facility] Comment on above: Order Comment: Speci men Type: BLOOD SPECIMENOrdering Facility: [facility] Address: [address] [address] Performed By: #### 2 4323-8 ####[facility]ATORYCLIA [id number] [address] STATES OF [place] ALT [Catalytic activity/Vol] 26 U/L Normal 13-61 [facility] Comment on above: Order Comment: Speci men Type: BLOOD SPECIMENOrdering Facility: [facility] Address: [address] [address] Result Comment: Resu lts may be falsely depressed after the administration of Sulfasalazine and/or Sulfapyridine. Performed By: #### 2 4323-8 ####[facility]ATORYCLIA [id number] [address] STATES OF [facility] Anion gap [Moles/Vol] 10 mmol/L Normal 5-16 [facility] Comment on above: Order Comment: Speci men Type: BLOOD SPECIMENOrdering Facility: [facility] Address: [address] [address] Performed By: #### 2 4323-8 ####[facility]ATORYCLIA [id number] [address] STATES OF [place] AST [Catalytic activity/Vol] 18 U/L Normal 8-34 [facility] Comment on above: Order Comment: Speci men Type: BLOOD SPECIMENOrdering Facility: [facility] Address: [address] [address] Result Comment: Resu lts may be falsely depressed after the administration of Sulfasalazine and/or Sulfapyridine. Performed By: #### 2 4323-8 ####[facility]ATORYCLIA [id number] [place] [address] [place] Bilirubin [Mass/Vol] 0.2 mg/dL Normal 0.2-1.0 [facility] Comment on above: Order Comment: Speci men Type: BLOOD SPECIMENOrdering Facility: [facility] Address: [address] [address] Performed By: #### 2 4323-8 ####[facility] [facility] LAB[facility]ATORYCLIA [id number] [place] [address] [place] Calcium [Mass/Vol] 9.0 mg/dL Normal 8.5-10.5 [facility] Comment on above: Order Comment: Speci men Type: BLOOD SPECIMENOrdering Facility: [facility] Address: [address] [address] Performed By: #### 2 4323-8 ####[facility] LABORATORYCLIA [id number] [place] [address] [place] Chloride [Moles/Vol] 109 mmol/L High 98-107 [facility] Comment on above: Order Comment: Speci men Type: BLOOD SPECIMENOrdering Facility: [facility] Address: [address] [place] [address] Performed By: #### 2 4323-8 ####[facility] LABORATORYCLIA [id number] [place] [address] [place] CO2 [Moles/Vol] 24 mmol/L Normal 21-32 [facility] Comment on above: Order Comment: Speci men Type: BLOOD SPECIMENOrdering Facility: [facility] Address: [address] [place] [address] Performed By: #### 2 4323-8 ####[facility] LABORATORYCLIA [id number] [place] [address] [place] Creatinine [Mass/Vol] 0.93 mg/dL Normal 0.51-0.95 [facility] Comment on above: Order Comment: Speci men Type: BLOOD SPECIMENOrdering Facility: [facility] Address: [address] [place] [address] Result Comment: Janel ents receiving either N-Acetylcysteine (NAC) or Metamizole prior to venipuncture, may have falsely depressed results. Performed By: #### 2 4323-8 ####[facility] LABORATORYCLIA [id number] [place] [address] [place] ESTIMATED GLOMERULAR FILTRATION RATE 79 mL/min/1.73m??? Normal >=60 [facility] Comment on above: Order Comment: David pham Type: BLOOD SPECIMENOrdering Facility: [facility] Address: [address] [id number] Result Comment: Eliza mated Glomerular Filtration Rate [...] actual GFR. Performed By: #### 2 4323-8 ####[facility] LABORATORYCLIA [id number] [place] [address] [place] Glucose [Mass/Vol] 130 mg/dL High 70-100 [facility] Comment on above: Order Comment: David pham Type: BLOOD SPECIMENOrdering Facility: [facility] Address: [address] [place] [address] Result Comment: The [place] Diabetes Association (ADA) provides guidance for cutoff [...] Standards of Medical Care in Diabetes 2016, [employer] Diabetes Association. Diabetes Care. 2016.39(Suppl 1). Results may be falsely elevated after the administration of Sulfapyridine. Results may be falsely depressed after the administration of Sulfasalazine. Performed By: #### 2 4323-8 ####[facility] LABORATORYCLIA [id number] [place] [address] [place] Potassium [Moles/Vol] 4.3 mmol/L Normal 3.5-5.1 [facility] Comment on above: Order Comment: David pham Type: BLOOD SPECIMENOrdering Facility: [facility] Address: [address] [address] Performed By: #### 2 4323-8 ####[facility] LABORATORYCLIA [id number] [place] [address] [place] Protein [Mass/Vol] 6.2 g/dL Normal 6.0-8.5 [facility] Comment on above: Order Comment: Speci men Type: BLOOD SPECIMENOrdering Facility: [facility] Address: [address] [address] Performed By: #### 2 4323-8 ####[facility] LABORATORYCLIA [id number] [place] [address] [place] Sodium [Moles/Vol] 143 mmol/L Normal 136-145 [facility] Comment on above: Order Comment: Speci men Type: BLOOD SPECIMENOrdering Facility: [facility] Address: [address] [address] Performed By: #### 2 4323-8 ####[facility] LABORATORYCLIA [id number] [address] [place] Urea nitrogen [Mass/Vol] 15 mg/dL Normal 7-26 [facility] Comment on above: Order Comment: Speci men Type: BLOOD SPECIMENOrdering Facility: [facility] Address: [address] [address] Performed By: #### 2 4323-8 ####[facility] LABORATORYCLIA [id number] [place] [address] [place] CBC W Auto Differential pane l (Bld)on 12-20-2022 Basophils (Bld) [#/Vol] 0.06 10*3/uL Normal <0.11 [facility] Comment on above: Order Comment: Speci men Type: BLOOD SPECIMENOrdering Facility: [facility] Address: [address] [address] Performed By: #### 5 7021-8 ####[facility] LABORATORYCLIA [id number] [place] [address] [place] Basophils/100 WBC (Bld) 0.6 % Normal [facility] Comment on above: Order Comment: Speci men Type: BLOOD SPECIMENOrdering Facility: [facility] Address: [address] [address] Performed By: #### 5 7021-8 ####[facility] LABORATORYCLIA [id number] [place] [address] [place] Differential cell count method Nom (Bld) Auto Normal [facility] Comment on above: Order Comment: Speci men Type: BLOOD SPECIMENOrdering Facility: [facility] Address: [address] [address] Performed By: #### 5 7021-8 ####[facility] LABORATORYCLIA [id number] [place] [address] [place] Eosinophils (Bld) [#/Vol] 0.32 10*3/uL Normal <0.46 [facility] Comment on above: Order Comment: Speci men Type: BLOOD SPECIMENOrdering Facility: [facility] Address: [address] [address] Performed By: #### 5 7021-8 ####[facility] LABORATORYCLIA [id number] [address] [place] Eosinophils/100 WBC (Bld) 3.1 % Normal [facility] Comment on above: Order Comment: Speci men Type: BLOOD SPECIMENOrdering Facility: [facility] Address: [address] [address] Performed By: #### 5 7021-8 ####[facility] LABORATORYCLIA [id number] [place] [address] [place] Erythrocyte distribution width (RBC) [Ratio] 14.5 % Normal 11.5-15.0 [facility] Comment on above: Order Comment: Speci men Type: BLOOD SPECIMENOrdering Facility: [facility] Address: [address] [address] Performed By: #### 5 7021-8 ####[facility] LABORATORYCLIA [id number] [place] [address] [place] Giant platelets LM Ql (Bld) Occasional Normal [facility] Comment on above: Order Comment: Speci men Type: BLOOD SPECIMENOrdering Facility: [facility] Address: [address] [address] Performed By: #### 5 7021-8 ####[facility] LABORATORYCLIA [id number] [place] [address] [place] Hematocrit (Bld) [Volume fraction] 32.8 % Low 36.0-46.0 [facility] Comment on above: Order Comment: Speci men Type: BLOOD SPECIMENOrdering Facility: [facility] Address: [address] [address] Performed By: #### 5 7021-8 ####[facility] LABORATORYCLIA [id number] [place] [address] [place] Hemoglobin (Bld) [Mass/Vol] 10.8 g/dL Low 11.5-15.5 [facility] Comment on above: Order Comment: Speci men Type: BLOOD SPECIMENOrdering Facility: [facility] Address: [address] [address] Performed By: #### 5 7021-8 ####[facility] LABORATORYCLIA [id number] [address] [place] Immature granulocytes (Bld) [#/Vol] 0.15 10*3/uL High <0.10 [facility] Comment on above: Order Comment: Speci men Type: BLOOD SPECIMENOrdering Facility: [facility] Address: [address] [address] Performed By: #### 5 7021-8 ####[facility] LABORATORYCLIA [id number] [place] [address] [place] Immature granulocytes/100 WBC (Bld) 1.4 % Normal [facility] Comment on above: Order Comment: Speci men Type: BLOOD SPECIMENOrdering Facility: [facility] Address: [address] [address] Performed By: #### 5 7021-8 ####[facility] LABORATORYCLIA [id number] [place] [address] [place] Lymphocytes (Bld) [#/Vol] 3.65 10*3/uL Normal 1.00-4.00 [facility] Comment on above: Order Comment: Speci men Type: BLOOD SPECIMENOrdering Facility: [facility] Address: [address] [place] [address] Performed By: #### 5 7021-8 ####[facility] LABORATORYCLIA [id number] [address] [place] Lymphocytes/100 WBC (Bld) 35.2 % Normal [facility] Comment on above: Order Comment: Speci men Type: BLOOD SPECIMENOrdering Facility: [facility] Address: [address] [place] [address] Performed By: #### 5 7021-8 ####[facility] LABORATORYCLIA [id number] [address] [place] MCH (RBC) [Entitic mass] 29.4 pg Normal 26.0-34.0 [facility] Comment on above: Order Comment: Speci men Type: BLOOD SPECIMENOrdering Facility: [facility] Address: [address] [place] [address] Performed By: #### 5 7021-8 ####[facility] LABORATORYCLIA [id number] [address] [place] MCHC (RBC) [Mass/Vol] 32.9 g/dL Normal 30.5-36.0 [facility] Comment on above: Order Comment: Speci men Type: BLOOD SPECIMENOrdering Facility: [facility] Address: [address] [place] [address] Performed By: #### 5 7021-8 ####[facility] LABORATORYCLIA [id number] [address] [place] MCV (RBC) [Entitic vol] 89.4 fL Normal 80.0-100.0 [facility] Comment on above: Order Comment: Speci men Type: BLOOD SPECIMENOrdering Facility: [facility] Address: [address] [address] Performed By: #### 5 7021-8 ####[facility] LABORATORYCLIA [id number] [place] [address] [place] Monocytes (Bld) [#/Vol] 0.86 10*3/uL Normal <0.87 [facility] Comment on above: Order Comment: Speci men Type: BLOOD SPECIMENOrdering Facility: [facility] Address: [address] [address] Performed By: #### 5 7021-8 ####[facility] LABORATORYCLIA [id number] [address] [place] Monocytes/100 WBC (Bld) 8.3 % Normal [facility] Comment on above: Order Comment: Speci men Type: BLOOD SPECIMENOrdering Facility: [facility] Address: [address] [address] Performed By: #### 5 7021-8 ####[facility] LABORATORYCLIA [id number] [place] [address] [place] Neutrophils (Bld) [#/Vol] 5.33 10*3/uL Normal 1.45-7.50 [facility] Comment on above: Order Comment: Speci men Type: BLOOD SPECIMENOrdering Facility: [facility] Address: [address] Performed By: #### 5 7021-8 ####[facility] LABORATORYCLIA [id number] [place] [address] [place] Neutrophils/100 WBC (Bld) 51.4 % Normal [facility] Comment on above: Order Comment: Speci men Type: BLOOD SPECIMENOrdering Facility: [facility] Address: [address] [address] Performed By: #### 5 7021-8 ####[facility] LABORATORYCLIA [id number] [place] [address] [place] Nucleated RBC (Bld) [#/Vol] 10*3/uL Normal <0.01 [facility] Comment on above: Order Comment: Speci men Type: BLOOD SPECIMENOrdering Facility: [facility] Address: [address] [address] Performed By: #### 5 7021-8 ####[facility] LABORATORYCLIA [id number] [place] [address] [place] Nucleated RBC/100 WBC (Bld) [Ratio] 0.0 /100 WBC Normal [facility] Comment on above: Order Comment: Speci men Type: BLOOD SPECIMENOrdering Facility: [facility] Address: [address] [address] Performed By: #### 5 7021-8 ####[facility] LABORATORYCLIA [id number] [place] [address] [place] Platelet mean volume (Bld) [Entitic vol] 11.9 fL Normal 9.0-12.7 [facility] Comment on above: Order Comment: Speci men Type: BLOOD SPECIMENOrdering Facility: [facility] Address: [address] [address] Performed By: #### 5 7021-8 ####[facility] LABORATORYCLIA [id number] [place] [address] [place] Platelets (Bld) [#/Vol] 169 10*3/uL Normal 150-400 [facility] Comment on above: Order Comment: Speci men Type: BLOOD SPECIMENOrdering Facility: [facility] Address: [address] [address] Performed By: #### 5 7021-8 ####[facility] LABORATORYCLIA [id number] [place] [address] [place] Platelets Estimate (Bld) [#/Vol] Adequate Normal [facility] Comment on above: Order Comment: Speci men Type: BLOOD SPECIMENOrdering Facility: [facility] Address: [address] [address] Performed By: #### 5 7021-8 ####[facility] LABORATORYCLIA [id number] [address] RBC (Bld) [#/Vol] 3.67 10*6/uL Low 3.90-5.20 [facility] Comment on above: Order Comment: Speci men Type: BLOOD SPECIMENOrdering Facility: [facility] Address: [address] [place] [address] Performed By: #### 5 7021-8 ####[facility] LABORATORYCLIA [id number] [address] [place] Reviewed: unremarkable Normal [facility] Comment on above: Order Comment: Speci men Type: BLOOD SPECIMENOrdering Facility: [facility] Address: [address] [place] [address] Performed By: #### 5 7021-8 ####[facility] LABORATORYCLIA [id number] [address] WBC (Bld) [#/Vol] 10.37 10*3/uL Normal 3.70-11.00 [facility] Comment on above: Order Comment: Speci men Type: BLOOD SPECIMENOrdering Facility: [facility] Address: [address] [place] [address] Performed By: #### 5 7021-8 ####[facility] LABORATORYCLIA [id number] [address] CONSULTon 12-20-2022 CONSULT HNO ID: [id number] Author: Bev Ngo MD Service: Infectious Disease Author Type: Physician Type: Consults Filed: 12/20/2022 1:07 PM Note Text: Infectious Disease Consultation Date of Service: 12/20/22 Reason for consult: esbl pyelo HPI: 42 year old female with history of spina bifids, suprapubic cath, recurrent uti. Had about one week progressive bilat flank pain, R worse than L with abd pain, chills, fatigue. Went to [place], then [place], given levaquin, then back to [place], transferred here. Now on ertapenem, feeling a little better. No fever. Full ROS performed and negative except as noted above. 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 Elevated LFTs 03/11/2020 Essential hypertension 02/21/2019 Fatty [...] 02/12/2015 Panic attacks Paroxysmal SVT (supraventricular tachycardia) ([facility]) 07/03/2017 Per 48 Hr event monitor 06/30/2017 [...] 11/26 (more content not included)... Normal [facility] Comprehensive metabolic 2000 panelon 12-20-2022 Albumin [Mass/Vol] 2.8 g/dL Low 3.2-5.0 [facility] Comment on above: Order Comment: Speci vero Type: BLOOD SPECIMENOrdering Facility: [facility] Address: [address] [address] Performed By: #### 2 4323-8 ####[facility] LABORATORYCLIA [id number] [place] [address] [place] ALP [Catalytic activity/Vol] 67 U/L Normal 45-117 [facility] Comment on above: Order Comment: David pham Type: BLOOD SPECIMENOrdering Facility: [facility] Address: [address] [place] [address] Performed By: #### 2 4323-8 ####[facility] LABORATORYCLIA [id number] [place] [address] [place] ALT [Catalytic activity/Vol] 28 U/L Normal 13-61 [facility] Comment on above: Order Comment: David pham Type: BLOOD SPECIMENOrdering Facility: [facility] Address: [address] [place] [address] Result Comment: Resu lts may be falsely depressed after the administration of Sulfasalazine and/or Sulfapyridine. Performed By: #### 2 4323-8 ####[facility] LABORATORYCLIA [id number] [place] [address] [place] Anion gap [Moles/Vol] 6 mmol/L Normal 5-16 [facility] Comment on above: Order Comment: David pham Type: BLOOD SPECIMENOrdering Facility: [facility] Address: [address] [place] [address] Performed By: #### 2 4323-8 ####[facility] LABORATORYCLIA [id number] [place] [address] [place] AST [Catalytic activity/Vol] Normal [facility] Comment on above: Order Comment: Speci men Type: BLOOD SPECIMENOrdering Facility: [facility] Address: [address] [place] [address] Result Comment: Unab le to assay due to interference from hemolysis. Suggest reorder as clinically indicated. Results may be falsely depressed after the administration of Sulfasalazine and/or Sulfapyridine. Performed By: #### 2 4323-8 ####[facility] LABORATORYCLIA [id number] [place] [address] [place] Bilirubin [Mass/Vol] 0.2 mg/dL Normal 0.2-1.0 [facility] Comment on above: Order Comment: Speci men Type: BLOOD SPECIMENOrdering Facility: [facility] Address: [address] [place] [address] Performed By: #### 2 4323-8 ####[facility] LABORATORYCLIA [id number] [place] [address] [place] Calcium [Mass/Vol] 8.6 mg/dL Normal 8.5-10.5 [facility] Comment on above: Order Comment: Speci men Type: BLOOD SPECIMENOrdering Facility: [facility] Address: [address] [place] [address] Performed By: #### 2 4323-8 ####[facility] LABORATORYCLIA [id number] [place] [address] [place] Chloride [Moles/Vol] 112 mmol/L High 98-107 [facility] Comment on above: Order Comment: Speci men Type: BLOOD SPECIMENOrdering Facility: [facility] Address: [address] [place] [address] Performed By: #### 2 4323-8 ####[facility] LABORATORYCLIA [id number] [place] [address] [place] CO2 [Moles/Vol] 24 mmol/L Normal 21-32 [facility] Comment on above: Order Comment: Speci men Type: BLOOD SPECIMENOrdering Facility: [facility] Address: [address] [address] Performed By: #### 2 4323-8 ####[facility] LABORATORYCLIA [id number] [place] [address] [place] Creatinine [Mass/Vol] 0.91 mg/dL Normal 0.51-0.95 [facility] Comment on above: Order Comment: Speci men Type: BLOOD SPECIMENOrdering Facility: [facility] Address: [address] [address] Result Comment: Janel ents receiving either N-Acetylcysteine (NAC) or Metamizole prior to venipuncture, may have falsely depressed results. Performed By: #### 2 4323-8 ####[facility] LABORATORYCLIA [id number] [address] STATES OF [facility] ESTIMATED GLOMERULAR FILTRATION RATE 81 mL/min/1.73m??? Normal >=60 [facility] Comment on above: Order Comment: Speci men Type: BLOOD SPECIMENOrdering Facility: [facility] Address: [address] [address] Result Comment: Eliza mated Glomerular Filtration Rate [...] actual GFR. Performed By: #### 2 4323-8 ####[facility] LABORATORYCLIA [id number] [place] [address] [place] Glucose [Mass/Vol] 123 mg/dL High 70-100 [facility] Comment on above: Order Comment: Ariannai vero Type: BLOOD SPECIMENOrdering Facility: [facility] Address: [address] [address] Result Comment: The [place] Diabetes Association (ADA) provides guidance for cutoff [...] Standards of Medical Care in Diabetes 2016, [place] Diabetes [employer]. Diabetes Care. 2016.39(Suppl 1). Results may be falsely elevated after the administration of Sulfapyridine. Results may be falsely depressed after the administration of Sulfasalazine. Performed By: #### 2 4323-8 ####[facility] LABORATORYCLIA [id number] [place] [address] [place] Potassium [Moles/Vol] Normal [facility] Comment on above: Order Comment: Speci men Type: BLOOD SPECIMENOrdering Facility: [facility] Address: [address] [address] Result Comment: Unab le to assay due to interference from hemolysis. Suggest reorder as clinically indicated. &XA&CALLED CRYSTAL TAVARES, NO K AND AST Performed By: #### 2 4323-8 ####[facility] LABORATORYCLIA [id number] [place] [address] [place] Protein [Mass/Vol] 6.1 g/dL Normal 6.0-8.5 [facility] Comment on above: Order Comment: David pham Type: BLOOD SPECIMENOrdering Facility: [facility] Address: [address] [address] Performed By: #### 2 4323-8 ####[facility] LABORATORYCLIA [id number] [place] [address] [place] Sodium [Moles/Vol] 142 mmol/L Normal 136-145 [facility] Comment on above: Order Comment: David pham Type: BLOOD SPECIMENOrdering Facility: [facility] Address: [address] [address] Performed By: #### 2 4323-8 ####[facility] LABORATORYCLIA [id number] [address] [id number] [place] Urea nitrogen [Mass/Vol] 20 mg/dL Normal - [facility] Comment on above: Order Comment: Speci men Type: BLOOD SPECIMENOrdering Facility: [facility] Address: [address] [place] [address] Performed By: #### 2 4323-8 ####[facility] LABORATORYCLIA [id number] [address] [id number] [place] URINE CULTURE [CCL]on 2022 [...] and its performance characteristics determined by the [facility] [place] ([facility]). It has not been cleared or approved by the FDA. -[facility] is regulated under CLIA as qualified to perform high-complexity testing. This test is used for clinical purposes. It should not be regarded as investigational or for research. SOURCE: URINE [facility] [address] [id number] Seth Whalen III, M.D. [id number] SEND TO IC YES Normal [facility] Comment on above: Performed By: #### 2 [address] #### [facility],[address] [place] [address] CBC W Auto Differential pane l (Bld)on 12-19-2022 Basophils (Bld) [#/Vol] 0.07 10*3/uL Normal <0.11 [facility] Comment on above: Order Comment: Speci men Type: BLOOD SPECIMEN [facility] Address: [address] [address] Performed By: #### 5 7021-8 #### [facility] CLIA [id number] [address] [place] [address] [place] Basophils/100 WBC (Bld) 0.6 % Normal [facility] Comment on above: Order Comment: Speci men Type: BLOOD SPECIMEN [facility] Address: [address] [address] Performed By: #### 5 7021-8 #### [facility] CLIA [id number] [address] [place] [address] [place] Differential cell count method Nom (Bld) Auto Normal [facility] Comment on above: Order Comment: Speci men Type: BLOOD SPECIMEN [facility] Address: [address] [address] Performed By: #### 5 7021-8 #### [facility] CLIA [id number] [address] [place] [address] [place] Eosinophils (Bld) [#/Vol] 0.34 10*3/uL Normal <0.46 [facility] Comment on above: Order Comment: Speci men Type: BLOOD SPECIMEN [facility] Address: [address] [address] Performed By: #### 5 7021-8 #### [facility] CLIA [id number] [address] [place] [address] [place] Eosinophils/100 WBC (Bld) 2.7 % Normal [facility] Comment on above: Order Comment: Speci men Type: BLOOD SPECIMEN Ordering Facility: [facility] Address: [address] [place] [address] Performed By: #### 5 7021-8 #### [facility] CLIA [id number] [address] [place] [address] [place] Erythrocyte distribution width (RBC) [Ratio] 14.6 % Normal 11.5-15.0 [facility] Comment on above: Order Comment: Speci men Type: BLOOD SPECIMEN Ordering Facility: [facility] Address: [address] [address] Performed By: #### 5 7021-8 #### [facility] CLIA [id number] [address] [place] [address] [place] Hematocrit (Bld) [Volume fraction] 35.9 % Low 36.0-46.0 [facility] Comment on above: Order Comment: Speci men Type: BLOOD SPECIMEN Ordering Facility: [facility] Address: [address] [address] Performed By: #### 5 7021-8 #### [facility] CLIA [id number] [address] [place] [address] [place] Hemoglobin (Bld) [Mass/Vol] 11.8 g/dL Normal 11.5-15.5 [facility] Comment on above: Order Comment: Speci men Type: BLOOD SPECIMEN Ordering Facility: [facility] Address: [address] [address] Performed By: #### 5 7021-8 #### [facility] CLIA [id number] [address] [place] [address] [place] Immature granulocytes (Bld) [#/Vol] 0.11 10*3/uL High <0.10 [facility] Comment on above: Order Comment: Speci men Type: BLOOD SPECIMEN Ordering Facility: [facility] Address: [address] [address] Performed By: #### 5 7021-8 #### [facility] CLIA [id number] [address] [place] [address] [place] Immature granulocytes/100 WBC (Bld) 0.9 % Normal [facility] Comment on above: Order Comment: Speci men Type: BLOOD SPECIMEN Ordering Facility: [facility] Address: [address] [address] Performed By: #### 5 7021-8 #### [facility] CLIA [id number] [address] [place] [address] [place] Lymphocytes (Bld) [#/Vol] 3.12 10*3/uL Normal 1.00-4.00 [facility] Comment on above: Order Comment: Speci men Type: BLOOD SPECIMEN Ordering Facility: [facility] Address: [address] [place] [address] Performed By: #### 5 7021-8 #### [facility] CLIA [id number] [address] [place] [address] [place] Lymphocytes/100 WBC (Bld) 24.6 % Normal [facility] Comment on above: Order Comment: Speci men Type: BLOOD SPECIMEN Ordering Facility: [facility] Address: [address] [place] [address] Performed By: #### 5 7021-8 #### [facility] IA [id number] [address] [place] [address] [place] MCH (RBC) [Entitic mass] 29.1 pg Normal 26.0-34.0 [facility] Comment on above: Order Comment: Speci men Type: BLOOD SPECIMEN Ordering Facility: [facility] Address: [address] [place] [address] Performed By: #### 5 7021-8 #### [facility] IA [id number] [address] [place] [address] [place] MCHC (RBC) [Mass/Vol] 32.9 g/dL Normal 30.5-36.0 [facility] Comment on above: Order Comment: Speci men Type: BLOOD SPECIMEN Ordering Facility: [facility] Address: [address] [place] [address] Performed By: #### 5 7021-8 #### [facility] IA [id number] [address] [place] [address] [place] MCV (RBC) [Entitic vol] 88.4 fL Normal 80.0-100.0 [facility] Comment on above: Order Comment: Speci men Type: BLOOD SPECIMEN Ordering Facility: [facility] Address: [address] [address] Performed By: #### 5 7021-8 #### [facility] CLIA [id number] [address] [place] [address] [place] Monocytes (Bld) [#/Vol] 1.01 10*3/uL High <0.87 [facility] Comment on above: Order Comment: Speci men Type: BLOOD SPECIMEN Ordering Facility: [facility] Address: [address] [address] Performed By: #### 5 7021-8 #### [facility] CLIA [id number] [address] [place] [address] [place] Monocytes/100 WBC (Bld) 8.0 % Normal [facility] Comment on above: Order Comment: Speci men Type: BLOOD SPECIMEN Ordering Facility: [facility] Address: [address] [address] Performed By: #### 5 7021-8 #### [facility] CLIA [id number] [address] [place] [address] [place] Neutrophils (Bld) [#/Vol] 8.04 10*3/uL High 1.45-7.50 [facility] Comment on above: Order Comment: Speci men Type: BLOOD SPECIMEN Ordering Facility: [facility] Address: [address] [address] Performed By: #### 5 7021-8 #### [facility] CLIA [id number] [address] [place] [address] [place] Neutrophils/100 WBC (Bld) 63.2 % Normal [facility] Comment on above: Order Comment: Speci men Type: BLOOD SPECIMEN Ordering Facility: [facility] Address: [address] [address] Performed By: #### 5 7021-8 #### [facility] CLIA [id number] [address] [place] [address] [place] Nucleated RBC (Bld) [#/Vol] 10*3/uL Normal <0.01 [facility] Comment on above: Order Comment: Speci men Type: BLOOD SPECIMEN Ordering Facility: [facility] Address: [address] Performed By: #### 5 7021-8 #### [facility] CLIA [id number] [address] [place] [address] [place] Nucleated RBC/100 WBC (Bld) [Ratio] 0.0 /100 WBC Normal [facility] Comment on above: Order Comment: Speci men Type: BLOOD SPECIMEN Ordering Facility: [facility] Address: [address] Performed By: #### 5 7021-8 #### [facility] CLIA [id number] [address] [place] [address] [place] Platelet mean volume (Bld) [Entitic vol] 10.6 fL Normal 9.0-12.7 [facility] Comment on above: Order Comment: Speci men Type: BLOOD SPECIMEN Ordering Facility: [facility] Address: [address] Performed By: #### 5 7021-8 #### [facility] CLIA [id number] [address] [place] [address] [place] Platelets (Bld) [#/Vol] 252 10*3/uL Normal 150-400 [facility] Comment on above: Order Comment: Speci men Type: BLOOD SPECIMEN Ordering Facility: [facility] Address: [address] Performed By: #### 5 7021-8 #### [facility] CLIA [id number] [address] [place] [address] [place] RBC (Bld) [#/Vol] 4.06 10*6/uL Normal 3.90-5.20 [facility] Comment on above: Order Comment: Speci men Type: BLOOD SPECIMEN Ordering Facility: [facility] Address: [address] Performed By: #### 5 7021-8 #### [facility] CLIA [id number] [address] [place] [address] [facility] WBC (Bld) [#/Vol] 12.69 10*3/uL High 3.70-11.00 [facility] Comment on above: Order Comment: Speci men Type: BLOOD SPECIMEN Ordering Facility: [facility] Address: [place] [address] Performed By: #### 5 7021-8 #### [facility] CLIA [id number] [address] [place] [address] [facility] CONSULTon 12-19-2022 CONSULT HNO ID: [id number] Author: Ramana Corona MD Service: Urology Author [...] the abdomen and pelvis on 12/12/2021 at [facility] that show 2 small nonobstructive right lower pole stones and some very slight dilation of the urinary system to the level of the bladder with no stones on the left but no stones. The patient eventually was at [facility] and was transferred to [facility] yesterday. She has cultures pending but no high spiking fevers overall the patient still has similar discomfort in the right flank greater than the left, No intervention is planned we will monitor the patient's progress. 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 Elevated LFTs 03/11/2020 Essential hypertension 02/21/2019 Fatty [...] 02/12/2015 Panic attacks Paroxysmal SVT (supraventricular tachycardia) ([facility]) 07/03/2017 Per 48 Hr event monitor 06/30/2017 Primary insomnia 02/17/2016 S/P hernia repair 12/11/2017 Spina bifida (HCC) 01/06/2016 Suprapubic catheter ([facility]) Thyroid cyst 01/01/2018 Complex right sided cysts. [...] DU (more content not included)... Normal [facility] Comprehensive metabolic 2000 panelon 12-19-2022 Albumin [Mass/Vol] 3.1 g/dL Low 3.2-5.0 [facility] Comment on above: Order Comment: Speci men Type: BLOOD SPECIMEN Ordering Facility: [facility] Address: [address] [place] [address] Performed By: #### 2 4323-8 #### [facility] CLIA [id number] [facility] [id number] [place] ALP [Catalytic activity/Vol] 79 U/L Normal 45-117 [facility] Comment on above: Order Comment: David pham Type: BLOOD SPECIMEN Ordering Facility: [facility] Address: [address] [place], [place] [address] Performed By: #### 2 4323-8 #### [facility] CLIA [id number] [address] [place] [address] [place] ALT [Catalytic activity/Vol] 36 U/L Normal 13-61 [facility] Comment on above: Order Comment: Speci men Type: BLOOD SPECIMEN Ordering Facility: [facility] Address: [address] [place] [address] Result Comment: Resu lts may be falsely depressed after the administration of Sulfasalazine and/or Sulfapyridine. Performed By: #### 2 4323-8 #### [facility] CLIA [id number] [address] [place] [address] [place] Anion gap [Moles/Vol] 8 mmol/L Normal 5-16 [facility] Comment on above: Order Comment: Speci men Type: BLOOD SPECIMEN Ordering [facility]: [facility] Address: [address] [place] [address] Performed By: #### 2 4323-8 #### [facility] CLIA [id number] [address] [place] [address] [place] AST [Catalytic activity/Vol] 27 U/L Normal 8-34 [facility] Comment on above: Order Comment: Speci men Type: BLOOD SPECIMEN Ordering Facility: [facility] Address: [address] [place] [address] Result Comment: Resu lts may be falsely depressed after the administration of Sulfasalazine and/or Sulfapyridine. Performed By: #### 2 4323-8 #### [facility] CLIA [id number] [address] [place] [address] [place] Bilirubin [Mass/Vol] 0.5 mg/dL Normal 0.2-1.0 [facility] Comment on above: Order Comment: Speci men Type: BLOOD SPECIMEN Order[facility]: [facility] Address: [address] [place] [address] Performed By: #### 2 4323-8 #### [facility] CLIA [id number] [address] [place] [address] [place] Calcium [Mass/Vol] 8.9 mg/dL Normal 8.5-10.5 [facility] Comment on above: Order Comment: Speci men Type: BLOOD SPECIMEN Ordering Facility: [facility] Address: [address] [address] Performed By: #### 2 4323-8 #### [facility] CLIA [id number] [address] [place] [address] [place] Chloride [Moles/Vol] 108 mmol/L High 98-107 [facility] Comment on above: Order Comment: Speci men Type: BLOOD SPECIMEN Order[facility] Address: [address] [address] Performed By: #### 2 4323-8 #### [facility] CLIA [id number] [address] [place] [address] [place] CO2 [Moles/Vol] 24 mmol/L Normal 21-32 [facility] Comment on above: Order Comment: Speci men Type: BLOOD SPECIMEN Order[facility] Address: [address] [place] [address] Performed By: #### 2 4323-8 #### [facility] CLIA [id number] [address] [place] [address] [place] Creatinine [Mass/Vol] 0.99 mg/dL High 0.51-0.95 [facility] Comment on above: Order Comment: Speci men Type: BLOOD SPECIMEN Order[facility] Facility: [facility] Address: [address] [place] [address] Result Comment: Janel ents receiving either N-Acetylcysteine (NAC) or Metamizole prior to venipuncture, may have falsely depressed results. Performed By: #### 2 4323-8 #### [facility] CLIA [id number] [address] [place] [address] [place] ESTIMATED GLOMERULAR FILTRATION RATE 74 mL/min/1.73m??? Normal >=60 [facility] Comment on above: Order Comment: Speci men Type: BLOOD SPECIMEN Order[facility] Address: [address] [place] [address] Result Comment: Eliza mated Glomerular Filtration Rate [...] GFR. Performed By: #### 2 4323-8 #### [facility] CLIA [id number] [address] [place] [address] [place] Glucose [Mass/Vol] 138 mg/dL High 70-100 [facility] Comment on above: Order Comment: David pham Type: BLOOD SPECIMEN Order[facility] Address: [address] [place], [place] [address] Result Comment: The [place] Diabetes Association (ADA) provides guidance for cutoff [...] Standards of Medical Care in Diabetes 2016, [place] [employer] Association. Diabetes Care. 2016.39(Suppl 1). Results may be falsely elevated after the administration of Sulfapyridine. Results may be falsely depressed after the administration of Sulfasalazine. Performed By: #### 2 4323-8 #### [facility] CLIA [id number] [address] [place] [address] [place] Potassium [Moles/Vol] 4.3 mmol/L Normal 3.5-5.1 [facility] Comment on above: Order Comment: David pham Type: BLOOD SPECIMEN Order[facility] Address: [address] [place] [address] Performed By: #### 2 4323-8 #### [facility] CLIA [id number] [address] [place] [address] [place] Protein [Mass/Vol] 6.6 g/dL Normal 6.0-8.5 [facility] Comment on above: Order Comment: Speci men Type: BLOOD SPECIMEN Ordering [facility]: [facility] Address: [address] [place] [address] Performed By: #### 2 4323-8 #### [facility] CLIA [id number] [address] [place] [address] [place] Sodium [Moles/Vol] 140 mmol/L Normal 136-145 [facility] Comment on above: Order Comment: Speci men Type: BLOOD SPECIMEN Order[facility] Address: [address] [place] [address] Performed By: #### 2 4323-8 #### [facility] CLIA [id number] [address] [place] [address] [place] Urea nitrogen [Mass/Vol] 20 mg/dL Normal 7-26 [facility] Comment on above: Order Comment: Speci men Type: BLOOD SPECIMEN Order[facility]: [facility] Address: [address] [place] [address] Performed By: #### 2 4323-8 #### [facility] CLIA [id number] [address] [place] [address] [place] Bacteria Ur Culton [...] or straight catheterization for???urine???collection . Normal [facility] Comment on above: Performed By: #### 6 30-4 #### [facility] CLIA [id number] [address] [place] [address] [place] CBC + DIFFon 12-18-2022 Baso # 0.20 x10EE3/UL High 0.00 - 0.10 [facility] Comment on above: Performed By: #### 2 22094 #### [facility],[address] [place] [address] Basophils/100 WBC (Bld) 1.3 % Normal 0.0 - 2.0 [facility] Comment on above: Performed By: #### 2 72332 #### [facility],[address] [place] [address] CBC + DIFF Normal [facility] Comment on above: Result Comment: CBC- COMPLETE BLOOD COUNT Performed By: #### 2 84402 #### [facility],[address] [place] [address] EO # 0.30 x10EE3/UL Normal 0.00 - 0.50 [facility] Comment on above: Performed By: #### 2 30370 #### [facility],[address] [place] [address] Eosinophils/100 WBC (Bld) 2.3 % Normal 0.0 - 7.0 [facility] Comment on above: Performed By: #### 2 84971 #### [facility],[address] [place] [address] Erythrocyte distribution width (RBC) [Ratio] 15.2 % Normal 12.0 - 15.6 [facility] Comment on above: Performed By: #### 2 98759 #### [facility],[address] [place] [address] Hematocrit (Bld) [Volume fraction] 39.3 % Normal 34.0 - 46.0 [facility] Comment on above: Performed By: #### 2 92967 #### [facility],[address] [place] [address] Hemoglobin (Bld) [Mass/Vol] 12.9 g/dL Normal 12.0 - 16.0 [facility] Comment on above: Performed By: #### 2 53846 #### [facility],[address] [place] [address] Lymph # 3.90 x10EE3/UL High 0.80 - 2.80 [facility] Comment on above: Performed By: #### 2 23010 #### [facility],[address] [place] [address] Lymphocytes/100 WBC (Bld) 26.0 % Normal 20.0 - 45.0 [facility] Comment on above: Performed By: #### 2 12139 #### [facility],[address] [place] [address] MANUAL DIFF N/A Normal [facility] Comment on above: Performed By: #### 2 19464 #### [facility],[address] [place] [address] MCH (RBC) [Entitic mass] 29 pg Normal 27 - 33 [facility] Comment on above: Performed By: #### 2 55519 #### [place] [address] MCHC 33 X10 3 Normal 32 - 36 [facility] Comment on above: Performed By: #### 2 05931 #### [facility],[address] [place] [address] MCV (RBC) [Entitic vol] 88 fL Normal 80 - 99 [facility] Comment on above: Performed By: #### 2 82251 #### [facility],[address] [place] [address] [place] # 1.40 x10EE3/UL High 0.20 - 1.00 [facility] Comment on above: Performed By: #### 2 36213 #### [facility],[address] [place] [address] MONOS % 9.3 % Normal 0.0 - 10.0 [facility] Comment on above: Performed By: #### 2 06609 #### [facility],[address] [place] [address] Morphology Allen (Bld) [Interp] N/A Normal [facility] Comment on above: Performed By: #### 2 00409 #### [facility],[address] [place] [address] Neut # 9.10 x10EE3/UL High 1.50 - 7.10 [facility] Comment on above: Performed By: #### 2 46337 #### [address] [place] [address] Neutrophils/100 WBC (Bld) 61.1 % Normal 46.0 - 76.0 [facility] Comment on above: Performed By: #### 2 90496 #### [facility],[address] [place] [address] PLATELET 294 x10EE3/UL Normal 150 - 450 [facility] Comment on above: Performed By: #### 2 33756 #### [facility],[address] [place] [address] Platelet mean volume (Bld) [Entitic vol] 9.4 fL Normal 6.6 - 10.5 [facility] Comment on above: Result Comment: AUTO MATED DIFFERENTIAL Performed By: #### 2 00278 #### [facility],[address] [place] [address] RBC 4.45 x 10EE6/UL Normal 4.10 - 5.30 [facility] Comment on above: Performed By: #### 2 73329 #### [address] [address] WBC 14.9 x 10EE3/UL High 4.5 - 10.8 [facility] Comment on above: Performed By: #### 2 75294 #### [facility],[address] [place], [place] [address] CBC W Auto Differential pane l (Bld)on 12-18-2022 Basophils (Bld) [#/Vol] 0.07 10*3/uL Normal <0.11 [facility] Comment on above: Order Comment: Speci men Type: BLOOD SPECIMEN Order[facility] Address: [address] [address] Performed By: #### 5 7021-8 #### [facility] CLIA [id number] [address] [place] [address] [place] Basophils/100 WBC (Bld) 0.6 % Normal [facility] Comment on above: Order Comment: Speci men Type: BLOOD SPECIMEN Ordering [facility] Address: [address] [place] [address] Performed By: #### 5 7021-8 #### [facility] CLIA [id number] [address] [place] [address] [place] Differential cell count method Nom (Bld) Auto Normal [facility] Comment on above: Order Comment: Speci men Type: BLOOD SPECIMEN Ordering [facility] Address: [address] [address] Performed By: #### 5 7021-8 #### [facility] CLIA [id number] [address] [place] [address] [place] Eosinophils (Bld) [#/Vol] 0.26 10*3/uL Normal <0.46 [facility] Comment on above: Order Comment: Speci men Type: BLOOD SPECIMEN Ordering [facility] Address: [address] [address] Performed By: #### 5 7021-8 #### [facility] CLIA [id number] [address] [place] [address] [place] Eosinophils/100 WBC (Bld) 2.1 % Normal [facility] Comment on above: Order Comment: Speci men Type: BLOOD SPECIMEN Ordering [facility] Address: [address] [place] [address] Performed By: #### 5 7021-8 #### [facility] CLIA [id number] [address] [place] [address] [place] Erythrocyte distribution width (RBC) [Ratio] 14.6 % Normal 11.5-15.0 [facility] Comment on above: Order Comment: Speci men Type: BLOOD SPECIMEN Ordering [facility] Address: [address] [place] [address] Performed By: #### 5 7021-8 #### [facility] CLIA [id number] [address] [place] [address] [facility] OF [place]E Hematocrit (Bld) [Volume fraction] 37.5 % Normal 36.0-46.0 [facility] Comment on above: Order Comment: Speci men Type: BLOOD SPECIMEN Ordering Facility: [facility] Address: [address] [place] [address] Performed By: #### 5 7021-8 #### [facility] CLIA [id number] [address] [place] [address] OF [place]E Hemoglobin (Bld) [Mass/Vol] 12.4 g/dL Normal 11.5-15.5 [facility] Comment on above: Order Comment: Speci men Type: BLOOD SPECIMEN Ordering Facility: [facility] Address: [address] [place] [address] Performed By: #### 5 7021-8 #### [facility] CLIA [id number] [address] [place] [address] [place] Immature granulocytes (Bld) [#/Vol] 0.12 10*3/uL High <0.10 [facility] Comment on above: Order Comment: Speci men Type: BLOOD SPECIMEN Ordering Facility: [facility] Address: [address] [place] [address] Performed By: #### 5 7021-8 #### [facility] CLIA [id number] [address] [place] [address] [place] Immature granulocytes/100 WBC (Bld) 1.0 % Normal [facility] Comment on above: Order Comment: Speci men Type: BLOOD SPECIMEN Ordering Facility: [facility] Address: [address] [address] Performed By: #### 5 7021-8 #### [facility] CLIA [id number] [address] [place] [address] [place] Lymphocytes (Bld) [#/Vol] 2.55 10*3/uL Normal 1.00-4.00 [facility] Comment on above: Order Comment: Speci men Type: BLOOD SPECIMEN Ordering Facility: [facility] Address: [address] [address] Performed By: #### 5 7021-8 #### [facility] CLIA [id number] [address] [place] [address] OF [place] Lymphocytes/100 WBC (Bld) 20.5 % Normal [facility] Comment on above: Order Comment: Speci men Type: BLOOD SPECIMEN Ordering Facility: [facility] Address: [address] [address] Performed By: #### 5 7021-8 #### [facility] CLIA [id number] [address] [place] [address] [place] MCH (RBC) [Entitic mass] 29.3 pg Normal 26.0-34.0 [facility] Comment on above: Order Comment: Speci men Type: BLOOD SPECIMEN Ordering Facility: [facility] Address: [address] [address] Performed By: #### 5 7021-8 #### [facility] CLIA [id number] [address] [place] [address] [place] MCHC (RBC) [Mass/Vol] 33.1 g/dL Normal 30.5-36.0 [facility] Comment on above: Order Comment: Speci men Type: BLOOD SPECIMEN Ordering Facility: [facility] Address: [address] [address] Performed By: #### 5 7021-8 #### [facility] CLIA [id number] [address] [place] [address] [place] MCV (RBC) [Entitic vol] 88.7 fL Normal 80.0-100.0 [facility] Comment on above: Order Comment: Speci men Type: BLOOD SPECIMEN Ordering Facility: [facility] Address: [address] [address] Performed By: #### 5 7021-8 #### [facility] CLIA [id number] [address] [place] [address] [place] Monocytes (Bld) [#/Vol] 0.77 10*3/uL Normal <0.87 [facility] Comment on above: Order Comment: Speci men Type: BLOOD SPECIMEN Ordering Facility: [facility] Address: [address] [address] Performed By: #### 5 7021-8 #### [facility] CLIA [id number] [address] [place] [address] OF [place] Monocytes/100 WBC (Bld) 6.2 % Normal [facility] Comment on above: Order Comment: Speci men Type: BLOOD SPECIMEN Ordering Facility: [facility] Address: [address] [address] Performed By: #### 5 7021-8 #### [facility] CLIA [id number] [address] [place] [address] [place] Neutrophils (Bld) [#/Vol] 8.65 10*3/uL High 1.45-7.50 [facility] Comment on above: Order Comment: Speci men Type: BLOOD SPECIMEN Ordering Facility: [facility] Address: [address] [address] Performed By: #### 5 7021-8 #### [facility] CLIA [id number] [address] [place] [address] [place] Neutrophils/100 WBC (Bld) 69.6 % Normal [facility] Comment on above: Order Comment: Speci men Type: BLOOD SPECIMEN Ordering Facility: [facility] Address: [address] [address] Performed By: #### 5 7021-8 #### [facility] CLIA [id number] [address] [place] [address] [place] Nucleated RBC (Bld) [#/Vol] 10*3/uL Normal <0.01 [facility] Comment on above: Order Comment: Speci men Type: BLOOD SPECIMEN Ordering Facility: [facility] Address: [address] [place] [address] Performed By: #### 5 7021-8 #### [facility] CLIA [id number] [address] [place] [address] [place] Nucleated RBC/100 WBC (Bld) [Ratio] 0.0 /100 WBC Normal [facility] Comment on above: Order Comment: Speci men Type: BLOOD SPECIMEN Ordering Facility: [facility] Address: [address] [place] [address] Performed By: #### 5 7021-8 #### [facility] CLIA [id number] [address] [place] [address] [place] Platelet mean volume (Bld) [Entitic vol] 10.7 fL Normal 9.0-12.7 [facility] Comment on above: Order Comment: Speci men Type: BLOOD SPECIMEN Ordering Facility: [facility] Address: [address] [place], [place] [address] Performed By: #### 5 7021-8 #### [facility] CLIA [id number] [address] [place] [address] [place] Platelets (Bld) [#/Vol] 263 10*3/uL Normal 150-400 [facility] Comment on above: Order Comment: Speci men Type: BLOOD SPECIMEN Ordering Facility: [facility] Address: [address] [place], [place] [address] Performed By: #### 5 7021-8 #### [facility] CLIA [id number] [address] [place] [address] [place] RBC (Bld) [#/Vol] 4.23 10*6/uL Normal 3.90-5.20 [facility] Comment on above: Order Comment: Speci men Type: BLOOD SPECIMEN Ordering Facility: [facility] Address: [address] [place] [address] Performed By: #### 5 7021-8 #### [facility] CLIA [id number] [address] OF [place] WBC (Bld) [#/Vol] 12.42 10*3/uL High 3.70-11.00 [facility] Comment on above: Order Comment: Speci men Type: BLOOD SPECIMEN Ordering Facility: [facility] Address: [address] [place] [address] Performed By: #### 5 7021-8 #### [facility] CLIA [id number] [address] [id number] [facility] CMP with eGFRon 12-18-2022 AGE 42 years Normal [facility] Comment on above: Performed By: #### 2 08110 #### [facility],[address] [place] [address]44 Albumin [Mass/Vol] 3.2 g/dL Low 3.4 - 5.0 [facility] Comment on above: Performed By: #### 2 74909 #### [facility],[address] [place] [address] 29347 Albumin/Globulin [Mass ratio] 0.7 {ratio} Low 0.9 - 1.6 [facility] Comment on above: Performed By: #### 2 06003 #### [facility],[address] [place] [address] 25370 ALK PHOS 104 U/L Normal 46 - 116 [facility] Comment on above: Performed By: #### 2 08273 #### [facility],[address] [place] [address] 39857 ALT [Catalytic activity/Vol] 28 U/L Normal 14 - 59 [facility] Comment on above: Performed By: #### 2 40241 #### [facility],[address] [place] [address] 71801 Anion gap [Moles/Vol] 19 mmol/L Normal 10 - 20 [facility] Comment on above: Performed By: #### 2 34620 #### [facility],[address] [place] [address] 95221 AST [Catalytic activity/Vol] 36 U/L Normal 13 - 39 [facility] Comment on above: Performed By: #### 2 63269 #### [facility],[address] [place] [address] 02469 B/C RATIO 13 ratio Normal 0 - 30 [facility] Comment on above: Performed By: #### 2 31112 #### [facility],[address] [place] [address] 04069 Bilirubin [Mass/Vol] 0.3 mg/dL Normal 0.2 - 1.0 [facility] Comment on above: Performed By: #### 2 26445 #### [facility],[address] [place] [address] 18671 Calcium [Mass/Vol] 8.7 mg/dL Normal 8.5 - 10.1 [facility] Comment on above: Performed By: #### 2 19132 #### [facility],[address] [place] [address] 38750 Chloride [Moles/Vol] 102 mmol/L Normal 98 - 107 [facility] Comment on above: Performed By: #### 2 14745 #### [facility],[address] [place] [address] 57744 CMP with eGFR Normal [facility] Comment on above: Result Comment: COMP REHENSIVE METABOLIC PANEL Performed By: #### 2 28060 #### [facility],[address] [place] [address] 40377 CO2 [Moles/Vol] 21.6 mmol/L Normal 21.0 - 32.0 [facility] Comment on above: Performed By: #### 2 26747 #### [facility],[address] [place] [address] 50468 Creatinine [Mass/Vol] 1.00 mg/dL Normal 0.55 - 1.02 [facility] Comment on above: Performed By: #### 2 55458 #### [facility],[address] [place] [address] 35043 GFR/1.73 sq M.predicted among non-blacks MDRD (S/P/Bld) [Vol rate/Area] mL/min/{1.73_m2} Normal 60 - 999 [facility] Comment on above: Performed By: #### 2 45673 #### [facility],[address] [place] [address] 78458 Result Comment: ACCO RDING TO THE NATIONAL KIDNEY DISEASE EDUCATION PROGRAM(NKDE), A NORMAL eGFR IS A VALUE GREATER THAN OR EQUAL TO 60 ML/MIN/1.73 SQ METERS. CHRONIC KIDNEY DISEASE: <60mL/MIN/1.73 SQ METERS KIDNEY FAILURE: <15mL/MIN/1.73 SQ METERS THIS TEST SHOULD ONLY BE USED FOR PATIENTS 18 YEARS OF AGE AND OLDER. Globulin (S) [Mass/Vol] 4.8 g/dL High 1.5 - 3.8 [facility] Comment on above: Performed By: #### 2 14606 #### [facility],[address] [place] [address] 80715 Glucose [Mass/Vol] 206 mg/dL High 74 - 106 [facility] Comment on above: Performed By: #### 2 41870 #### [facility],[address] [place] [address] 46432 Potassium [Moles/Vol] 4.4 mmol/L Normal 3.5 - 5.1 [facility] Comment on above: Performed By: #### 2 97012 #### [facility],[address] [place] [address] 98166 Protein [Mass/Vol] 8.0 g/dL Normal 6.4 - 8.2 [facility] Comment on above: Performed By: #### 2 16087 #### [facility],[address] [place] [address] 11980 Sodium [Moles/Vol] 138 mmol/L Normal 136 - 145 [facility] Comment on above: Performed By: #### 2 37674 #### [facility],[address] [place] [address] 20481 Urea nitrogen [Mass/Vol] 13 mg/dL Normal 7 - 18 [facility] Comment on above: Performed By: #### 2 95353 #### [facility],[address] [place] [address] ABDOMEN/PELVIS [facility] 12-18 CT ABDOMEN/PELVIS [address] [address] Patient: DEBBY BAILON Phone#: : 1980 Age: 42 Gender: F Pt. Type: ER Account: [id number] Location: [facility] Ordering: DR. ELIZABETH PEDROZA Exam Date: 12/18/2022/4:34 Family Phys: Charge Code: [id number] Physician: Aiken Order #: [id number] Dose#: 18.4 mGy PROCEDURE: CT ABDOMEN/PELVIS WITHOUT [...] 42 Gender: F Pt. Type: ER Account: [id number] Location: [facility] Ordering: DR. ELIZABETH PEDROZA Exam Date: 12/18/2022/4:34 Family Phys: Charge Code: [id number] Physician: Aiken Order #: [id number] Dose#: 18.4 mGy 1. Mild right renal atrophy. There is a nonobstructing right renal calculus. 2. There is no evidence of hydronephrosis or ureteral calculi. 3. Upper abdominal ostomy site is present. 4. Suprapubic catheter is present. Dictated by: Phoebe Stroud MD on 12/18/2022 at 4:45 Approved by: Phoebe Stroud MD on 12/18/2022 at 5:05 Normal [facility] CULTURE BLOOD [SARWAT]on Microscopic examination of blood, culture CULTURE BLOOD [SARWAT] _BLOOD CULTURE_ GO TO [employer] REPORTS AND ATTACHMENTS FOR SCANNED REPORT 12/26/22.1359.TLJ.COMPLE TE Normal [facility] Comment on above: Performed By: #### 2 08003 #### [facility],[address] [place] [address] Microscopic examination of blood, culture CULTURE BLOOD [SARWAT] _BLOOD CULTURE_ GO TO [employer] REPORTS AND ATTACHMENTS FOR SCANNED REPORT 12/26/22.1400.TLJ.COMPLE TE Normal [facility] Comment on above: Performed By: #### 2 28232 #### [facility],[address] [place], [place] [id number] Comprehensive metabolic 2000 panelon 12-18-2022 Albumin [Mass/Vol] 3.3 g/dL Normal 3.2-5.0 [facility] Comment on above: Order Comment: Speci men Type: BLOOD SPECIMEN [facility] Address: [address] [place] [address] Performed By: #### 2 4323-8 #### [facility] CLIA [id number] [address] [place] [address] [place] ALP [Catalytic activity/Vol] 90 U/L Normal 45-117 [facility] Comment on above: Order Comment: Speci men Type: BLOOD SPECIMEN Order[facility] Address: [address] [place] [address] Performed By: #### 2 4323-8 #### [facility] CLIA [id number] [address] [place] [address] [place] ALT [Catalytic activity/Vol] 36 U/L Normal 13-61 [facility] Comment on above: Order Comment: Speci men Type: BLOOD SPECIMEN Order[facility] Address: [address] [place] [address] Result Comment: Resu lts may be falsely depressed after the administration of Sulfasalazine and/or Sulfapyridine. Performed By: #### 2 4323-8 #### [facility] CLIA [id number] [address] [place] [address] [place] Anion gap [Moles/Vol] 6 mmol/L Normal 5-16 [facility] Comment on above: Order Comment: Speci men Type: BLOOD SPECIMEN Order[facility] Address: [address] [place] [address] Performed By: #### 2 4323-8 #### [facility] CLIA [id number] [address] [place] [address] [place] AST [Catalytic activity/Vol] 34 U/L Normal 8-34 [facility] Comment on above: Order Comment: Speci men Type: BLOOD SPECIMEN Ordering Facility: [facility] Address: [address] [place] [address] Result Comment: Resu lts may be falsely depressed after the administration of Sulfasalazine and/or Sulfapyridine. Performed By: #### 2 4323-8 #### [facility] CLIA [id number] [address] [place] [address] [place] Bilirubin [Mass/Vol] 0.3 mg/dL Normal 0.2-1.0 [facility] Comment on above: Order Comment: Speci men Type: BLOOD SPECIMEN [facility] Address: [address] [place] [address] Performed By: #### 2 4323-8 #### [facility] CLIA [id number] [address] [place] [address] [place] Calcium [Mass/Vol] 9.2 mg/dL Normal 8.5-10.5 [facility] Comment on above: Order Comment: Speci men Type: BLOOD SPECIMEN Order[facility] Address: [address] [place] [address] Performed By: #### 2 4323-8 #### [facility] CLIA [id number] [address] [place] [address] [place] Chloride [Moles/Vol] 109 mmol/L High 98-107 [facility] Comment on above: Order Comment: Speci men Type: BLOOD SPECIMEN Order[facility] Address: [address] [place] [address] Performed By: #### 2 4323-8 #### [facility] CLIA [id number] [address] [place] [address] [place] CO2 [Moles/Vol] 24 mmol/L Normal 21-32 [facility] Comment on above: Order Comment: Speci men Type: BLOOD SPECIMEN Ordering Facility[facility] Address: [facility] [address] [id number] Performed By: #### 2 4323-8 #### [facility] CLIA [id number] [address] [place] [address] [place] Creatinine [Mass/Vol] 1.01 mg/dL High 0.51-0.95 [facility] Comment on above: Order Comment: Speci men Type: BLOOD SPECIMEN Order[facility] Facility: [facility] Address: [address] [place] [address] Result Comment: Janel ents receiving either N-Acetylcysteine (NAC) or Metamizole prior to venipuncture, may have falsely depressed results. Performed By: #### 2 4323-8 #### [facility] CLIA [id number] [address] [place] [address] [place] ESTIMATED GLOMERULAR FILTRATION RATE 72 mL/min/1.73m??? Normal >=60 [facility] Comment on above: Order Comment: Ariannai men Type: BLOOD SPECIMEN Order[facility] Address: [address] [place] [address] Result Comment: Eliza mated Glomerular Filtration Rate [...] GFR. Performed By: #### 2 4323-8 #### [facility] CLIA [id number] [address] [place] [address] [place] Glucose [Mass/Vol] 185 mg/dL High 70-100 [facility] Comment on above: Order Comment: Ariannai men Type: BLOOD SPECIMEN Order[facility] Address: [address] [place] [address] Result Comment: The [place] Diabetes Association (ADA) provides guidance for cutoff [...] Standards of Medical Care in Diabetes 2016, [place] [employer]. Diabetes Care. 2016.39(Suppl 1). Results may be falsely elevated after the administration of Sulfapyridine. Results may be falsely depressed after the administration of Sulfasalazine. Performed By: #### 2 4323-8 #### [facility] CLIA [id number] [address] [place] [address] [place] Potassium [Moles/Vol] 4.1 mmol/L Normal 3.5-5.1 [facility] Comment on above: Order Comment: David pham Type: BLOOD SPECIMEN Order[facility] Facility[facility] Address: [address] [place] [address] Performed By: #### 2 4323-8 #### [facility] CLIA [id number] [address] [place] [address] [place] Protein [Mass/Vol] 7.0 g/dL Normal 6.0-8.5 [facility] Comment on above: Order Comment: David pham Type: BLOOD SPECIMEN Order[facility] Address: [address] [place] [address] Performed By: #### 2 4323-8 #### [facility] CLIA [id number] [address] [place] [address] [place] Sodium [Moles/Vol] 139 mmol/L Normal 136-145 [facility] Comment on above: Order Comment: David pham Type: BLOOD SPECIMEN Order[facility] Address: [address] [place] [address] Performed By: #### 2 4323-8 #### [facility] CLIA [id number] [address] [place] [address] [place] Urea nitrogen [Mass/Vol] 19 mg/dL Normal 7- [facility] Comment on above: Order Comment: Speci men Type: BLOOD SPECIMEN Order[facility] Facility[facility] Address: [place] [address] Performed By: #### 2 4323-8 #### [facility] CLIA [id number] [address] [place] [address] [place] HISTORY PHYSICALon HISTORY PHYSICAL HNO ID: [id number] Author: Kerry Lisa MD Service: ? Author Type: Physician Type: [...] was 12/02 this month. She went to [facility] but due to insurance issue she got transferred to [facility] from outside hospital in chart. FUNCTIONAL STATUS: Independent PAST MEDICAL HISTORY Diagnosis Date Amputation of left great toe ([facility]) 06/25/2020 Anxiety Arthritis started age 19 Bilateral leg edema 07/16/2018 Cervical radiculopathy 05/02/2013 Chronic pain 02/12/[address] ([facility]) 09/30/2021 Constipation due to outlet dysfunction 10/07/2021 Cyst of ovary 11/28/2011 Diabetic eye exam ([facility]) 06/17/2016 Last done: 01/25/2017 Diabetic eye exam ([facility]) 06/17/2016 Last done: 03/08/2019 DJD (degenerative joint disease), thoracic DM (diabetes mellitus), secondary, uncontrolled, 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 Elevated LFTs 03/11/2020 Essential hypertension 02/21/2019 Fatty [...] 1 (more content not included)... Normal [facility] LACTATEon 12-18-2022 Lactate [Moles/Vol] 1.1 mmol/L Normal 0.4 - 2.0 [facility] Comment on above: Performed By: #### 2 32412 #### [facility],[address] [place] [address] Lactate [Moles/Vol] 2.2 mmol/L High 0.4 - 2.0 [facility] Comment on above: Result Comment: LACT ATE 3 HR NOTIFIED TO: LACTATE 3 HR NOTIFIED BY: Performed By: #### 2 09110 #### [facility],[address] [place] [address] 06214 LIPASEon 12-18-2022 Lipase [Catalytic activity/Vol] 133.0 U/L Normal 73.0 - 393 [facility] Comment on above: Performed By: #### 2 88314 #### [facility],[address] [place] [address] 36963 Lactate (Bld) [Moles/Vol]on 12-18-2022 Lactate [Moles/Vol] 1.7 mmol/L Normal 0.4-2.0 [facility] Comment on above: Order Comment: Speci men Type: BLOOD SPECIMEN Order[facility] Address: [facility] [place] [address] Performed By: #### 3 2693-4 #### [facility] CLIA [id number] [address] STATES OF [facility] NT-proBNPon 12-18-2022 Natriuretic peptide B (Bld) [Mass/Vol] 41 pg/mL Normal 0 - 125 [facility] Comment on above: Performed By: #### 2 16595 #### [facility],[address] [place] [address] 98370 TROPONIN I, HIGH SENSITIVITY on 12-18-2022 HS TROPONIN 5.0 pg/mL Normal 0.0 - 51.4 [facility] Comment on above: Performed By: #### 2 83559 #### [facility],[address] [place] [address] 09792 URINALYSISon 12-18-2022 Amorphous 1+ Normal [facility] Comment on above: Performed By: #### 2 61764 #### [facility],[address] [place] [address] 58095 Bacteria 4+ Normal [facility] Comment on above: Performed By: #### 2 84761 #### [facility],[address] [place] [address] 05360 Bilirubin Ql (U) Negative Normal NORMAL: NEGATIVE [facility] Comment on above: Performed By: #### 2 88156 #### [facility],[address] [place] [address] 27140 Casts NONE Normal [facility] Comment on above: Result Comment: MANY CALCIUM OXYLATE Performed By: #### 2 30442 #### [facility],[address] [place] [address] 29487 Clarity (U) TURBID Abnormal NORMAL: CLEAR [facility] Comment on above: Performed By: #### 2 23179 #### [facility],[address] [place], [place] [id number] Color (U) YELLOW Normal NORMAL: YELLOW [facility] Comment on above: Performed By: #### 2 60474 #### [facility],[address] [place] [address] Crystals LM Nom (Urine sed) SEE BELOW Normal [facility] Comment on above: Performed By: #### 2 [id number] #### [facility],[address] [place] [address] 86182 Epi Cells MANY Normal [facility] Comment on above: Performed By: #### 2 [id number] #### [facility],[address] [place] [address] 47405 Glucose Ql (U) 1000 Abnormal NORMAL: NORMAL [facility] Comment on above: Performed By: #### 2 [id number] #### [facility],[address] [place] [address] 32564 Hemoglobin Ql (U) 50 Abnormal NORMAL: NEGATIVE [facility] Comment on above: Performed By: #### 2 [id number] #### [facility],[address] [place] [address] 79018 Ketone Negative Normal NORMAL: NEGATIVE [facility] Comment on above: Performed By: #### 2 [id number] #### [facility],[address] [place] [address] 57387 Leukocytes 500 Abnormal NORMAL: NEGATIVE [facility] Comment on above: Performed By: #### 2 [id number] #### [facility],[address] [place] [address] 01666 Mucous NONE Normal [facility] Comment on above: Performed By: #### 2 [id number] #### [facility],[address] [place], [place] [id number] Nitrite Ql (U) Negative Normal NORMAL: NEGATIVE [facility] Comment on above: Performed By: #### 2 [id number] #### [facility],[address] [place] [address] pH (U) 8.0 [pH] Normal NORMAL: 5.0-8.0 [facility] Comment on above: Performed By: #### 2 [id number] #### [facility],[address] [place] [address] Protein Ql (U) 100 Abnormal NORMAL: NEGATIVE [facility] Comment on above: Performed By: #### 2 [id number] #### [facility],[address] [place] [address] Rbc 15-20 Normal 0-3/hpf [facility] Comment on above: Performed By: #### 2 [id number] #### [facility],[address] [place] [address] Sp [place] 1.015 Normal NORMAL: 1.010-1.03 0 [facility] Comment on above: Performed By: #### 2 [id number] #### [facility],[address] [place] [address] Specimen Type Catheter Normal [facility] Comment on above: Performed By: #### 2 [id number] #### [facility],[address] [place] [address] Urinalysis dipstick W Reflex Microscopic panel (U) SEE BELOW Normal [facility] Comment on above: Result Comment: MICR OSCOPIC Performed By: #### 2 [id number] #### [facility],[address] [place] [address] Urobilinog NORMAL Normal NORMAL: NORMAL [facility] Comment on above: Performed By: #### 2 [id number] #### [facility],[address] [place] [address] 30793 WBC (U) [#/Vol] /uL Normal 0-5/hpf [facility] Comment on above: Performed By: #### 2 [id number] #### [facility],[address] [place] [address] 31425 Yeast NONE Normal [facility] Comment on above: Performed By: #### 2 [id number] #### [facility],[address] [place] [address] 40776 URINALYSIS, REFLEX MICROSCOP ICon 12-18-2022 Bacteria LM.HPF (Urine sed) [#/Area] Few Abnormal None Seen [facility] Comment on above: Order Comment: Speci men Type: URINE SPECIMEN Ordering Facility: [facility] Address: [address] [place] [address] Performed By: #### L [id number] #### [facility] CLIA [id number] [address] [place] [address] [place] Bilirubin Ql (U) Negative Normal Negative [facility] Comment on above: Order Comment: Speci men Type: URINE SPECIMEN Ordering Facility: [facility] Address: [address] [place] [address] Performed By: #### L [id number] #### [facility] CLIA [id number] [address] [place] [address] [place] Clarity (Unsp spec) Cloudy Abnormal Clear [facility] Comment on above: Order Comment: Speci men Type: URINE SPECIMEN Ordering Facility: [facility] Address: [address] [place] [address] Performed By: #### L [id number] #### [facility] CLIA [id number] [address] [place] [address] [place] Color (U) Yellow Normal Yellow [facility] Comment on above: Order Comment: Speci men Type: URINE SPECIMEN Ordering Facility: [facility] Address: [address] [place] [address] Performed By: #### L [id number] #### [facility] CLIA [id number] [address] [place] [address] [place] [facility] [place] Epithelial cells LM.HPF (Urine sed) [#/Area] Few Normal [facility] Comment on above: Order Comment: Speci men Type: URINE SPECIMEN Ordering Facility: [facility] Address: [address] [place] [address] Performed By: #### L [id number] #### [facility] CLIA [id number] [address] [place] [address] OF [place] Glucose Test strip (U) [Mass/Vol] 1+ Abnormal Negative [facility] Comment on above: Order Comment: Speci men Type: URINE SPECIMEN Ordering Facility: [facility] Address: [address] [place] [address] Performed By: #### L [id number] #### [facility] CLIA [id number] [address] [place] [address] [place] Hemoglobin Ql (U) 1+ Abnormal Negative [facility] Comment on above: Order Comment: Speci men Type: URINE SPECIMEN Ordering Facility: [facility] Address: [address] [place] [address] Performed By: #### L [id number] #### [facility] CLIA [id number] [address] [place] [address] [place] Ketones Ql (U) Negative Normal Negative [facility] Comment on above: Order Comment: Speci men Type: URINE SPECIMEN Ordering Facility: [facility] Address: [address] [place] [address] Performed By: #### L [id number] #### [facility] CLIA [id number] [address] [place] [address] [place] Leukocyte esterase Test strip Ql (U) 3+ Abnormal Negative [facility] Comment on above: Order Comment: Speci men Type: URINE SPECIMEN Ordering Facility: [facility] Address: [address] [address] Performed By: #### L [id number] #### [facility] CLIA [id number] [address] [place] [address] [place] Nitrite Ql (U) Positive Abnormal Negative [facility] Comment on above: Order Comment: Speci men Type: URINE SPECIMEN Ordering Facility: [facility] Address: [address] [place] [address] Performed By: #### L [id number] #### [facility] CLIA [id number] [address] [place] [address] [place] pH (U) 6.0 [pH] Normal 5.0-8.0 [facility] Comment on above: Order Comment: Speci men Type: URINE SPECIMEN Ordering Facility: [facility] Address: [address] [place] [address] Performed By: #### L [id number] #### [facility] CLIA [id number] [address] [place] [address] [place] Protein (U) [Mass/Vol] 1+ Abnormal Negative [facility] Comment on above: Order Comment: Speci men Type: URINE SPECIMEN Ordering Facility: [facility] Address: [address] [place] [address] Performed By: #### L [id number] #### [facility] CLIA [id number] [address] [place] [address] [place] RBC LM.HPF (Urine sed) [#/Area] 6-10 /HPF Abnormal 0-3 /HPF [facility] Comment on above: Order Comment: Speci men Type: URINE SPECIMEN Ordering Facility: [facility] Address: [address] [place] [address] Performed By: #### L [id number] #### [facility] CLIA [id number] [address] [place] [address] [place] Specific gravity (U) [Rel density] 1.014 Normal 1.005-1.03 0 [facility] Comment on above: Order Comment: Speci men Type: URINE SPECIMEN Ordering Facility: [facility] Address: [address] [place] [address] Performed By: #### L [id number] #### [facility] CLIA [id number] [address] [place] [address] [place] Urobilinogen Ql (U) Negative Normal Negative [facility] Comment on above: Order Comment: Speci men Type: URINE SPECIMEN Ordering Facility: [facility] Address: [address] [place] [address] Performed By: #### L [id number] #### [facility] CLIA [id number] [address] [place] [address] [place] WBC LM.HPF (Urine sed) [#/Area] /[HPF] Abnormal 0-5 /HPF [facility] Comment on above: Order Comment: Speci men Type: URINE SPECIMEN Ordering Facility: [facility] Address: [address] [place] [address] Performed By: #### L [id number] #### [facility] CLIA [id number] [address] [place] [address] [place] Absolute lymphocyte countOrd ered By: Dre Deal on 12-12-2022 Lymphocytes Auto (Unsp spec) [#/Vol] 3.24 10*3/uL 0.83-4.51 [facility] Amorphous sediment detection in urine sediment by light microscopyOrdered By: Dre Deal on 12-12-2022 Amorphous sediment LM Ql (Urine sed) 1+ PHOS [facility] Basophil percentageOrdered B y: Dre Deal on 12-12-2022 Basophil percentage 50-100 SEEN /hpf 0-5 [facility] Basophil percentage [facility] Comment on above: Test not performedSP ECIMEN WAS GROSSLY HEMOLYZED, REDRAW FOR K IF INDICATEDPrevious reported result: TNP mmol/LEdited by: MARY on 12/12/22:1957 Basophils/100 WBC (Bld) 0.7 % 0-1 [facility] Chloride [Moles/Vol] 103 mmol/L 98-107 [facility] Eosinophils/100 WBC (Bld) 1.6 % 0-5 [facility] Glucose [Mass/Vol] 282 mg/dL 74-106 [facility] Comment on above: Glucose result great er than or equal to 200 mg/dLsuggests DIABETES MELLITUS per A.D.A. criteria. Neutrophils (Bld) [#/Vol] 10.1 10*3/uL 2.0-7.7 [facility] Neutrophils/100 WBC (Bld) 67.3 % 47-70 [facility] Sodium [Moles/Vol] 131 mmol/L 136-145 [facility] WBC (Bld) [#/Vol] 15.0 10*3/uL 4.4-11.0 [facility] Beta hCG serum qualOrdered B y: Dre Deal on 12-12-2022 Beta HCG ( test) Ql Negative [facility] Bilirubin Test strip Ql (U)O rdered By: Dre Deal on 12-12-2022 Bilirubin Ql (U) Negative Negative [facility] Blood erythrocytes count (nu mber/volume)Ordered By: Dre Deal on 12-12-2022 RBC (Bld) [#/Vol] 4.79 10*6/uL 4.2-5.4 [facility] Blood hemoglobin measurement (mass/volume)Ordered By: Dre Deal on 12-12-2022 Hemoglobin (Bld) [Mass/Vol] 13.9 g/dL 12.0-15.0 [facility] Blood lymphocytes/100 leukoc ytesOrdered By: Dre Deal on 12-12-2022 Lymphocytes/100 WBC (Bld) 21.6 % 19-41 [facility] Blood monocytes/100 leukocyt esOrdered By: Dregermán Deal on 12-12-2022 Monocytes/100 WBC (Bld) 8.2 % 0-10 [facility] Blood platelet mean volumeOr dered By: Dre Deal on 12-12-2022 Platelet mean volume (Bld) [Entitic vol] 11.6 fL 6.2-12.0 [facility] Culture, urineOrdered By: Dominic Deal on 12-12-2022 Bacteria identified Cx Nom (U) Providencia rettgeri [facility] Determination of erythrocyte mean corpuscular volume (MCV)Ordered By: Dre Deal on 12-12-2022 MCV (RBC) [Entitic vol] 88.9 fL 81-99 [facility] Hematocrit Auto (Bld) [Volum e fraction]Ordered By: Dre Deal on 12-12-2022 Hematocrit (Bld) [Volume fraction] 42.6 % 37-47 [facility] Ketones Test strip Ql (U)Ord ered By: Dre Deal on 12-12-2022 Ketones Ql (U) Negative Negative [facility] Laboratory - Chemistry and C hemistry - challengeOrdered By: Dregermán Deal on 12-12-2022 CO2 [Moles/Vol] 21.0 mmol/L 21.0-32.0 [facility] Urea nitrogen/Creatinine [Mass ratio] 9.3 mg/mg 10-20 [facility] Laboratory - Hematology and Cell countsOrdered By: Dre Deal on 12-12-2022 Erythrocyte distribution width (RBC) [Entitic vol] 46.5 fL 35.1-43.9 [facility] Erythrocyte distribution width (RBC) [Ratio] 14.4 % 11.6-14.6 [facility] Immature granulocytes/100 WBC (Bld) 0.600 % 0.0-0.9 [facility] Comment on above: IG% - Immature Granu locytes (promyelocytes, myelocytes and metamyelocytes) > 1% indicates that a LEFT SHIFT is Present. MCH (RBC) [Entitic mass] 29.0 pg 27.0-32.0 [facility] Nucleated RBC/100 WBC (Bld) [Ratio] 0 % 0-5 [facility] MCHC Auto (RBC) [Mass/Vol]Or dered By: Dre Deal on 12-12-2022 MCHC (RBC) [Mass/Vol] 32.6 g/dL 32-36 [facility] Mucus LM Ql (Urine sed)Order ed By: Dre Deal on 12-12-2022 Mucus Ql (Urine sed) 0 SEEN /hpf [facility] Nitrite Test strip Ql (U)Ord ered By: Dre Deal on 12-12-2022 Nitrite Ql (U) Positive Negative [facility] No Panel InformationOrdered By: Dre Deal on 12-12-2022 Estimated Creatinine Clearance Calc 57.59 ml/min [facility] Estimated GFR (MDRD) Amer 81 mL/min >60 [facility] Comment on above: GFR Calc Estimated GFR (MDRD) Non-Af Amer 67 mL/min >60 [facility] Comment on above: Non- GFR Calc Platelets bldOrdered By: Dre Deal on 12-12-2022 Platelets (Bld) [#/Vol] 189 10*3/uL 150-450 [facility] Protein Test strip Ql (U)Ord ered By: Dre Deal on 12-12-2022 Protein Ql (U) 100 mg/dl Negative [facility] Serum or plasma calcium thi urement (mass/volume)Ordered By: Dre Deal on 12-12-2022 Calcium [Mass/Vol] 10.1 mg/dL 8.5-10.1 [facility] Serum or plasma creatinine m easurement (mass/volume)Ordered By: Dre Deal on 12-12-2022 Creatinine [Mass/Vol] 0.97 mg/dL 0.55-1.02 [facility] Comment on above: The validity of the calculated GFR & GFRAA in patients over 70 years has not been determined. Clinical correlation is essential. Serum or plasma urea nitroge n measurement (mass/volume)Ordered By: Dre Deal on 12-12-2022 Urea nitrogen [Mass/Vol] 9 mg/dL 7-18 [facility] Squamous epithelial cells de tection in urine sediment by light microscopyOrdered By: Dre Deal on 12-12-2022 Epithelial cells.squamous LM Ql (Urine sed) 0-5 SEEN /hpf 5-10 [facility] Thin prep Papanicolaou smear with manual screeningOrdered By: Dre Deal on 12-12-2022 Thin prep Papanicolaou smear with manual screening 7 5-15 [facility] Urine blood detectionOrdered By: Dre Deal on 12-12-2022 RBC Ql (U) 250 /ul Negative [facility] RBC Ql (U) 10-25 SEEN /hpf 0-5 [facility] Urine clarityOrdered By: Dre Deal on 12-12-2022 Clarity (U) Sl. Cloudy Clear [facility] Urine color determinationOrd ered By: Dre Deal on 12-12-2022 Color (U) Yellow Yellow [facility] Urine glucose detectionOrder ed By: Dre Deal on 12-12-2022 Glucose Ql (U) 1000 mg/dl Normal [facility] Urine leukocyte esterase det ection by dipstickOrdered By: Dre Deal on 12-12-2022 Leukocyte esterase Test strip Ql (U) 500 /ul Negative [facility] Urine pHOrdered By: Dre zimmerman on 12-12-2022 pH (U) 7.0 [pH] 5.0 - 8.0 [facility] Urine sediment bacteria coun t by microscopy (number/high power field)Ordered By: Dre Deal on 12-12-2022 Bacteria LM.HPF (Urine sed) [#/Area] 2 /[HPF] None Seen [facility] Urine specific gravity measu rementOrdered By: Dre Deal on 12-12-2022 Specific gravity (U) [Rel density] 1.010 1.002-1.03 0 [facility] Urobilinogen Auto test strip Ql (U)Ordered By: Dre Deal on 12-12-2022 Urobilinogen Ql (U) Normal mg/dl Normal [facility] LABORATORYOrdered By: SYSTEM SYSTEM on 12-10-2022 Albumin [...] Auto (Unsp spec) [#/Vol] 2.80 10*3/uL 0.83-4.51 [facility] Basophil percentageOrdered B y: Agustin Aguilar on 10-15-2022 Basophils/100 WBC (Bld) 0.7 % 0-1 [facility] Bilirubin [Mass/Vol] 0.20 mg/dL 0.20-1.00 [facility] Comment on above: For patients on eltr ombopag therapy, use of Dimension [place] TBIL is not recommended. Chloride [Moles/Vol] 104 mmol/L 98-107 [facility] Eosinophils/100 WBC (Bld) 1.1 % 0-5 [facility] Glucose [Mass/Vol] 293 mg/dL 74-106 [facility] Comment on above: Glucose result great er than or equal to 200 mg/dLsuggests DIABETES MELLITUS per A.D.A. criteria. Neutrophils (Bld) [#/Vol] 7.8 10*3/uL 2.0-7.7 [facility] Neutrophils/100 WBC (Bld) 65.7 % 47-70 [facility] Potassium [Moles/Vol] 4.4 mmol/L 3.5-5.1 [facility] Protein [Mass/Vol] 8.5 g/dL 6.4-8.2 [facility] Sodium [Moles/Vol] 135 mmol/L 136-145 [facility] WBC (Bld) [#/Vol] 11.9 10*3/uL 4.4-11.0 [facility] Blood erythrocytes count (nu mber/volume)Ordered By: Agustin Aguilar on 10-15-2022 RBC (Bld) [#/Vol] 4.55 10*6/uL 4.2-5.4 [facility] Blood hemoglobin measurement (mass/volume)Ordered By: Agustin Aguilar on 10-15-2022 Hemoglobin (Bld) [Mass/Vol] 13.1 g/dL 12.0-15.0 [facility] Blood lymphocytes/100 leukoc ytesOrdered By: Agustin Aguilar on 10-15-2022 Lymphocytes/100 WBC (Bld) 23.5 % 19-41 [facility] Blood monocytes/100 leukocyt esOrdered By: Agustin Aguilar on 10-15-2022 Monocytes/100 WBC (Bld) 7.8 % 0-10 [facility] Blood platelet mean volumeOr dered By: Agustin Aguilar on 10-15-2022 Platelet mean volume (Bld) [Entitic vol] 10.5 fL 6.2-12.0 [facility] Determination of erythrocyte mean corpuscular volume (MCV)Ordered By: Agustin Aguilar on 10-15-2022 MCV (RBC) [Entitic vol] 86.8 fL 81-99 [facility] Hematocrit Auto (Bld) [Volum e fraction]Ordered By: Agustin Aguilar on 10-15-2022 Hematocrit (Bld) [Volume fraction] 39.5 % 37-47 [facility] Laboratory - Chemistry and C hemistry - challengeOrdered By: Agustin Aguilar on 05-20-2023 ALP [Catalytic activity/Vol] 92 U/L 45-117 [facility] ALT [Catalytic activity/Vol] 29 U/L 13-56 [facility] CO2 [Moles/Vol] 26.0 mmol/L 21.0-32.0 [facility] Globulin (S) [Mass/Vol] 5.0 g/dL 2.2-4.2 [facility] Lipase [Catalytic activity/Vol] 41 U/L 13-75 [facility] Comment on above: Please note:LIPASE r evised reference range effective 22. New Lipase methodology. Expected to produce lower values than the previous assay method. NEW Reference Range: 13 - 75 U/L Urea nitrogen/Creatinine [Mass ratio] 14.5 mg/mg 10-20 [facility] Laboratory - Hematology and Cell countsOrdered By: Agutsin Aguilar on 10-15-2022 Erythrocyte distribution width (RBC) [Entitic vol] 45.0 fL 35.1-43.9 [facility] Erythrocyte distribution width (RBC) [Ratio] 14.1 % 11.6-14.6 [facility] Immature granulocytes/100 WBC (Bld) 1.200 % 0.0-0.9 [facility] Comment on above: IG% - Immature Granu locytes (promyelocytes, myelocytes and metamyelocytes) > 1% indicates that a LEFT SHIFT is Present. MCH (RBC) [Entitic mass] 28.8 pg 27.0-32.0 [facility] Nucleated RBC/100 WBC (Bld) [Ratio] 0 % 0-5 [facility] MCHC Auto (RBC) [Mass/Vol]Or dered By: Agustin Aguilar on 10-15-2022 MCHC (RBC) [Mass/Vol] 33.2 g/dL 32-36 [facility] No Panel InformationOrdered By: Agustin Aguilar on 10-15-2022 Estimated Creatinine Clearance Calc 58.18 ml/min [facility] Estimated GFR (MDRD) Amer 82 mL/min >60 [facility] Comment on above: GFR Calc Estimated GFR (MDRD) Non-Af Amer 68 mL/min >60 [facility] Comment on above: Non- GFR Calc Platelets bldOrdered By: Abram Aguilar on 10-15-2022 Platelets (Bld) [#/Vol] 271 10*3/uL 150-450 [facility] Serum or plasma albumin thi urement (mass/volume)Ordered By: Agustin Aguilar on 10-15-2022 Albumin [Mass/Vol] 3.5 g/dL 3.2-5.0 [facility] Serum or plasma albumin/glob ulin mass ratioOrdered By: Agustin Aguilar on 10-15-2022 Albumin/Globulin [Mass ratio] 0.7 {ratio} 0.9-2.4 [facility] Serum or plasma calcium thi urement (mass/volume)Ordered By: Agustin Aguilar on 10-15-2022 Calcium [Mass/Vol] 9.5 mg/dL 8.5-10.1 [facility] Serum or plasma creatinine m easurement (mass/volume)Ordered By: Agustin Aguilar on 10-15-2022 Creatinine [Mass/Vol] 0.97 mg/dL 0.55-1.02 [facility] Comment on above: The validity of the calculated GFR & GFRAA in patients over 70 years has not been determined. Clinical correlation is essential. Serum or plasma urea nitroge n measurement (mass/volume)Ordered By: Agustin Aguilar on 10-15-2022 Urea nitrogen [Mass/Vol] 14 mg/dL 7-18 [facility] Thin prep Papanicolaou smear with manual screeningOrdered By: Agustin Aguilar on 10-15-2022 Thin prep Papanicolaou smear with manual screening 18 U/L 15-37 [facility] Thin prep Papanicolaou smear with manual screening 5 5-15 [facility] Acid fast bacilli (AFB) cult ureOrdered By: Dr. Wing on 09-23-2022 Mycobacterium sp identified Org specific cx Nom (Unsp spec) [facility] Acid fast bacilli (AFB) cult ureOrdered By: Dr. Wing on 09-03-2022 Mycobacterium sp identified Org specific cx Nom (Unsp spec) [facility] Fungus cultureOrdered By: Dr Shiva Wing on 09-03-2022 Fungus identified Cx Nom (Unsp spec) [facility] Fungus stainOrdered By: Dr. Wing on 09-03-2022 Fungus identified Fungus stain Nom (Unsp spec) [facility] Thin prep Papanicolaou smear with manual screeningOrdered By: Dr. Wing on 09-03-2022 Thin prep Papanicolaou smear with manual screening [facility] Thin prep Papanicolaou smear with manual screeningOrdered By: Dr. Wing on 08-24-2022 Thin prep Papanicolaou smear with manual screening [facility] Laboratory - Microbiology an d Antimicrobial susceptibilityOrdered By: Dr. Stone on 08-21-2022 Bacteria identified Cx Nom (Bld) No growth in 5 days. [facility] Anaerobic cultureOrdered By: Dr. Stone on 08-19-2022 Bacteria identified Anaer cx Nom (Unsp spec) No anaerobic bacteria isolated. [facility] Bacteria identified Cx Nom ( Wound)Ordered By: Dr. Stone on 08-19-2022 Wound Culture Streptococcus group C [facility] Wound Culture Meth. resistant Stap h. aureus [facility] Wound Culture Staphylococcus simulans [facility] Culture, urineOrdered By: Dr Shiva Stone on 08-19-2022 Bacteria identified Cx Nom (U) Escherichia coli [facility] Bacteria identified Cx Nom (U) Pseudomonas aeruginosa [facility] Gram stain for investigation of transfusion reactionOrdered By: Dr. Stone on 08-17-2022 Microscopic observation Gram stain Nom (Unsp spec) [facility] Absolute lymphocyte countOrd ered By: Dr. Stone on 08-16-2022 Lymphocytes Auto (Unsp spec) [#/Vol] 2.20 10*3/uL 0.83-4.51 [facility] Anaerobic cultureOrdered By: Keaton Stone on 08-16-2022 Bacteria identified Anaer cx Nom (Unsp spec) No anaerobic bacteria isolated. [facility] Bacteria identified Cx Nom ( Wound)Ordered By: Keaton Stone on 08-16-2022 Wound Culture Streptococcus group C [facility] Wound Culture Meth. resistant Stap h. aureus [facility] Wound Culture Staphylococcus simulans [facility] Basophil percentageOrdered B y: Dr. Stone on 08-16-2022 Basophils/100 WBC (Bld) 0.4 % 0-1 [facility] Bilirubin [Mass/Vol] 0.40 mg/dL 0.20-1.00 [facility] Comment on above: For patients on eltr ombopag therapy, use of Dimension [place] TBIL is not recommended. Chloride [Moles/Vol] 103 mmol/L 98-107 [facility] Eosinophils/100 WBC (Bld) 0.4 % 0-5 [facility] Glucose [Mass/Vol] 262 mg/dL 74-106 [facility] Comment on above: Glucose result great er than or equal to 200 mg/dLsuggests DIABETES MELLITUS per A.D.A. criteria. Lactate [Moles/Vol] 1.0 mmol/L 0.4-2.0 [facility] Neutrophils (Bld) [#/Vol] 12.0 10*3/uL 2.0-7.7 [facility] Neutrophils/100 WBC (Bld) 77.0 % 47-70 [facility] Potassium [Moles/Vol] 4.4 mmol/L 3.5-5.1 [facility] Protein [Mass/Vol] 7.6 g/dL 6.4-8.2 [facility] Sodium [Moles/Vol] 134 mmol/L 136-145 [facility] WBC (Bld) [#/Vol] 15.6 10*3/uL 4.4-11.0 [facility] Basophil percentage 25-50 SEEN /hpf 0-5 [facility] Bilirubin Test strip Ql (U)O rdered By: Dr. Stone on 08-16-2022 Bilirubin Ql (U) Negative Negative [facility] Blood erythrocytes count (nu mber/volume)Ordered By: Dr. Stone on 08-16-2022 RBC (Bld) [#/Vol] 4.02 10*6/uL 4.2-5.4 [facility] Blood hemoglobin measurement (mass/volume)Ordered By: Dr. Stone on 08-16-2022 Hemoglobin (Bld) [Mass/Vol] 11.2 g/dL 12.0-15.0 [facility] Blood lymphocytes/100 leukoc ytesOrdered By: Dr. Stone on 08-16-2022 Lymphocytes/100 WBC (Bld) 14.1 % 19-41 [facility] Blood monocytes/100 leukocyt esOrdered By: Dr. Stone on 08-16-2022 Monocytes/100 WBC (Bld) 6.5 % 0-10 [facility] Blood platelet mean volumeOr dered By: Dr. Stone on 08-16-2022 Platelet mean volume (Bld) [Entitic vol] 10.5 fL 6.2-12.0 [facility] Culture, urineOrdered By: Akhil Stone on 08-16-2022 Bacteria identified Cx Nom (U) Escherichia coli [facility] Bacteria identified Cx Nom (U) Pseudomonas aeruginosa [facility] Determination of erythrocyte mean corpuscular volume (MCV)Ordered By: Dr. Stone on 08-16-2022 MCV (RBC) [Entitic vol] 86.1 fL 81-99 [facility] Gram stain for investigation of transfusion reactionOrdered By: Keaton Stone on 08-16-2022 Microscopic observation Gram stain Nom (Unsp spec) [facility] Hematocrit Auto (Bld) [Volum e fraction]Ordered By: Dr. Stone on 08-16-2022 Hematocrit (Bld) [Volume fraction] 34.6 % 37-47 [facility] INR in Blood by Coagulation assayOrdered By: Dr. Stone on 08-16-2022 INR Coag (Bld) [Relative time] 1.0 {INR} [facility] Ketones Test strip Ql (U)Ord ered By: Dr. Stone on 08-16-2022 Ketones Ql (U) Negative Negative [facility] Laboratory - Chemistry and C hemistry - challengeOrdered By: Dr. Stone on 08-16-2022 ALP [Catalytic activity/Vol] 91 U/L 45-117 [facility] ALT [Catalytic activity/Vol] 23 U/L 13-56 [facility] CO2 [Moles/Vol] 23.0 mmol/L 21.0-32.0 [facility] Globulin (S) [Mass/Vol] 4.4 g/dL 2.2-4.2 [facility] Urea nitrogen/Creatinine [Mass ratio] 13.9 mg/mg 10-20 [facility] Laboratory - CoagulationOrde red By: Dr. Stone on 08-16-2022 aPTT Coag (Bld) [Time] 28.1 s 24.1-36.2 [facility] PT Coag (PPP) [Time] 12.4 s 11.7-14.9 [facility] Laboratory - Hematology and Cell countsOrdered By: Dr. Stone on 08-16-2022 Erythrocyte distribution width (RBC) [Entitic vol] 46.2 fL 35.1-43.9 [facility] Erythrocyte distribution width (RBC) [Ratio] 14.7 % 11.6-14.6 [facility] Immature granulocytes/100 WBC (Bld) 1.600 % 0.0-0.9 [facility] Comment on above: IG% - Immature Granu locytes (promyelocytes, myelocytes and metamyelocytes) > 1% indicates that a LEFT SHIFT is Present. MCH (RBC) [Entitic mass] 27.9 pg 27.0-32.0 [facility] Nucleated RBC/100 WBC (Bld) [Ratio] 0 % 0-5 [facility] Laboratory - Microbiology an d Antimicrobial susceptibilityOrdered By: Keaton Stone on 08-16-2022 Bacteria identified Cx Nom (Bld) No growth in 5 days. [facility] MCHC Auto (RBC) [Mass/Vol]Or dered By: Dr. Stone on 08-16-2022 MCHC (RBC) [Mass/Vol] 32.4 g/dL 32-36 [facility] Mucus LM Ql (Urine sed)Order ed By: Dr. Stone on 08-16-2022 Mucus Ql (Urine sed) 0 SEEN /hpf [facility] Nitrite Test strip Ql (U)Ord ered By: Dr. Stone on 08-16-2022 Nitrite Ql (U) Positive Negative [facility] No Panel InformationOrdered By: Dr. Stone on 08-16-2022 Estimated Creatinine Clearance Calc 64.86 ml/min [facility] Estimated GFR (MDRD) Amer 93 mL/min >60 [facility] Comment on above: GFR Calc Estimated GFR (MDRD) Non-Af Amer 77 mL/min >60 [facility] Comment on above: Non- GFR Calc Platelets bldOrdered By: Dr. Stone on 08-16-2022 Platelets (Bld) [#/Vol] 235 10*3/uL 150-450 [facility] Protein Test strip Ql (U)Ord ered By: Dr. Stone on 08-16-2022 Protein Ql (U) 100 mg/dl Negative [facility] Serum or plasma albumin thi urement (mass/volume)Ordered By: Dr. Stone on 08-16-2022 Albumin [Mass/Vol] 3.2 g/dL 3.2-5.0 [facility] Serum or plasma albumin/glob ulin mass ratioOrdered By: Dr. Stone on 08-16-2022 Albumin/Globulin [Mass ratio] 0.7 {ratio} 0.9-2.4 [facility] Serum or plasma calcium thi urement (mass/volume)Ordered By: Dr. Stone on 08-16-2022 Calcium [Mass/Vol] 8.9 mg/dL 8.5-10.1 [facility] Serum or plasma creatinine m easurement (mass/volume)Ordered By: Dr. Stone on 08-16-2022 Creatinine [Mass/Vol] 0.87 mg/dL 0.55-1.02 [facility] Comment on above: The validity of the calculated GFR & GFRAA in patients over 70 years has not been determined. Clinical correlation is essential. Serum or plasma urea nitroge n measurement (mass/volume)Ordered By: Dr. Stone on 08-16-2022 Urea nitrogen [Mass/Vol] 12 mg/dL 7-18 [facility] Squamous epithelial cells de tection in urine sediment by light microscopyOrdered By: Dr. Stone on 08-16-2022 Epithelial cells.squamous LM Ql (Urine sed) 0-5 SEEN /hpf 5-10 [facility] Thin prep Papanicolaou smear with manual screeningOrdered By: Dr. Stone on 08-16-2022 Thin prep Papanicolaou smear with manual screening 17 U/L 15-37 [facility] Thin prep Papanicolaou smear with manual screening 8 5-15 [facility] Urine blood detectionOrdered By: Dr. Stone on 08-16-2022 RBC Ql (U) 50 /ul Negative [facility] RBC Ql (U) 0-5 SEEN /hpf 0-5 [facility] Urine clarityOrdered By: Dr. Stone on 08-16-2022 Clarity (U) Cloudy Clear [facility] Urine color determinationOrd ered By: Dr. Stone on 08-16-2022 Color (U) Yellow Yellow [facility] Urine glucose detectionOrder ed By: Dr. Stone on 08-16-2022 Glucose Ql (U) 1000 mg/dl Normal [facility] Urine leukocyte esterase det ection by dipstickOrdered By: Dr. Stone on 08-16-2022 Leukocyte esterase Test strip Ql (U) 500 /ul Negative [facility] Urine pHOrdered By: Dr. Abram sweet on 08-16-2022 pH (U) 6.0 [pH] 5.0 - 8.0 [facility] Urine sediment bacteria coun t by microscopy (number/high power field)Ordered By: Dr. Stone on 08-16-2022 Bacteria LM.HPF (Urine sed) [#/Area] 4 /[HPF] None Seen [facility] Urine specific gravity measu rementOrdered By: Dr. Stone on 08-16-2022 Specific gravity (U) [Rel density] 1.015 1.002-1.03 0 [facility] Urobilinogen Auto test strip Ql (U)Ordered By: Dr. Stone on 08-16-2022 Urobilinogen Ql (U) Normal mg/dl Normal [facility] Anaerobic cultureOrdered By: Dr. Wing on 07-20-2022 Bacteria identified Anaer cx Nom (Unsp spec) No anaerobic bacteria isolated. [facility] Bacteria identified Cx Nom ( Wound)Ordered By: Dr. Wing on 07-20-2022 Wound Culture Enterococcus faecalis [facility] Wound Culture Enterobacter cloacae complex [facility] Wound Culture Staphylococcus simulans [facility] Anaerobic cultureOrdered By: Dr. Wing on 07-19-2022 Bacteria identified Anaer cx Nom (Unsp spec) No anaerobic bacteria isolated. [facility] Bacteria identified Cx Nom ( Wound)Ordered By: Dr. Wing on 07-18-2022 Wound Culture Staphylococcus simulans [facility] Laboratory - Microbiology an d Antimicrobial susceptibilityOrdered By: Alexander Hooks on 07-18-2022 Bacteria identified Cx Nom (Bld) No growth in 5 days. [facility] Basophil percentageOrdered B y: Dr. Ngo on 07-16-2022 Bilirubin [Mass/Vol] 0.30 mg/dL 0.20-1.00 [facility] Comment on above: For patients on eltr ombopag therapy, use of Dimension [place] TBIL is not recommended. Chloride [Moles/Vol] 108 mmol/L 98-107 [facility] Glucose [Mass/Vol] 100 mg/dL 74-106 [facility] Comment on above: Fasting Glucose resu lt from 100 to 125 mg/dL suggests IMPAIRED HOMEOSTASIS per A.D.A. criteria. Potassium [Moles/Vol] 3.6 mmol/L 3.5-5.1 [facility] Protein [Mass/Vol] 7.1 g/dL 6.4-8.2 [facility] Sodium [Moles/Vol] 139 mmol/L 136-145 [facility] Gram stain for investigation of transfusion reactionOrdered By: Dr. Wing on 07-16-2022 Microscopic observation Gram stain Nom (Unsp spec) [facility] Microscopic observation Gram stain Nom (Unsp spec) [facility] Laboratory - Chemistry and C hemistry - challengeOrdered By: Dr. Ngo on 07-16-2022 ALP [Catalytic activity/Vol] 70 U/L 45-117 [facility] ALT [Catalytic activity/Vol] 35 U/L 13-56 [facility] CK [Catalytic activity/Vol] 25 U/L 26-192 [facility] CO2 [Moles/Vol] 26.0 mmol/L 21.0-32.0 [facility] Globulin (S) [Mass/Vol] 4.3 g/dL 2.2-4.2 [facility] Urea nitrogen/Creatinine [Mass ratio] 12.7 mg/mg 10-20 [facility] No Panel InformationOrdered By: Dr. Ngo on 07-16-2022 Estimated Creatinine Clearance Calc 71.43 ml/min [facility] Estimated GFR (MDRD) Amer 104 mL/min >60 [facility] Comment on above: GFR Calc Estimated GFR (MDRD) Non-Af Amer 86 mL/min >60 [facility] Comment on above: Non- GFR Calc Serum or plasma albumin thi urement (mass/volume)Ordered By: Dr. Ngo on 07-16-2022 Albumin [Mass/Vol] 2.8 g/dL 3.2-5.0 [facility] Serum or plasma albumin/glob ulin mass ratioOrdered By: Dr. Ngo on 07-16-2022 Albumin/Globulin [Mass ratio] 0.7 {ratio} 0.9-2.4 [facility] Serum or plasma calcium thi urement (mass/volume)Ordered By: Dr. Ngo on 07-16-2022 Calcium [Mass/Vol] 8.9 mg/dL 8.5-10.1 [facility] Serum or plasma creatinine m easurement (mass/volume)Ordered By: Dr. Ngo on 07-16-2022 Creatinine [Mass/Vol] 0.79 mg/dL 0.55-1.02 [facility] Comment on above: The validity of the calculated GFR & GFRAA in patients over 70 years has not been determined. Clinical correlation is essential. Serum or plasma urea nitroge n measurement (mass/volume)Ordered By: Dr. Ngo on 07-16-2022 Urea nitrogen [Mass/Vol] 10 mg/dL 7-18 [facility] Thin prep Papanicolaou smear with manual screeningOrdered By: Dr. Ngo on 07-16-2022 Thin prep Papanicolaou smear with manual screening 28 U/L 15-37 [facility] Thin prep Papanicolaou smear with manual screening 5 5-15 [facility] Glucose Glucometer (BldC) [M ass/Vol]Ordered By: Dr. Boyer on 07-15-2022 Glucose [Mass/Vol] 156 mg/dL 74-106 [facility] Comment on above: MANAGEMENT OF PATIEN T CARE PER NURSING PROTOCOL Laboratory - Chemistry and C hemistry - challengeOrdered By: Dr. Navarrete on 07-15-2022 HCG ( test) Ql (U) Negative [facility] Comment on above: Very dilute urine sp ecimens, as indicated by a low specificgravity, may not contain sales solutions representative levels of hCG. If is still suspected, a first morning urinespecimen should be collected 48 hours later and tested. Absolute lymphocyte countOrd ered By: Dr. Panda on 07-13-2022 Lymphocytes Auto (Unsp spec) [#/Vol] 1.49 10*3/uL 0.83-4.51 [facility] Absolute lymphocyte countOrd ered By: Alexander Hooks on 07-13-2022 Lymphocytes Auto (Unsp spec) [#/Vol] 1.00 10*3/uL 0.83-4.51 [facility] Basophil percentageOrdered B y: Dr. Panda on 07-13-2022 Basophils/100 WBC (Bld) 0.4 % 0-1 [facility] Eosinophils/100 WBC (Bld) 0.2 % 0-5 [facility] Neutrophils (Bld) [#/Vol] 9.2 10*3/uL 2.0-7.7 [facility] Neutrophils/100 WBC (Bld) 77.8 % 47-70 [facility] WBC (Bld) [#/Vol] 11.8 10*3/uL 4.4-11.0 [facility] Basophil percentageOrdered B y: Alexander Hooks on 07-13-2022 Basophils/100 WBC (Bld) 0.3 % 0-1 [facility] Chloride [Moles/Vol] 101 mmol/L 98-107 [facility] Eosinophils/100 WBC (Bld) 0.1 % 0-5 [facility] Glucose [Mass/Vol] 235 mg/dL 74-106 [facility] Comment on above: Glucose result great er than or equal to 200 mg/dLsuggests DIABETES MELLITUS per A.D.A. criteria. Lactate [Moles/Vol] 1.6 mmol/L 0.4-2.0 [facility] Neutrophils (Bld) [#/Vol] 13.0 10*3/uL 2.0-7.7 [facility] Neutrophils/100 WBC (Bld) 85.3 % 47-70 [facility] Potassium [Moles/Vol] 4.3 mmol/L 3.5-5.1 [facility] Sodium [Moles/Vol] 132 mmol/L 136-145 [facility] WBC (Bld) [#/Vol] 15.2 10*3/uL 4.4-11.0 [facility] Blood erythrocytes count (nu mber/volume)Ordered By: Dr. Panda on 07-13-2022 RBC (Bld) [#/Vol] 3.93 10*6/uL 4.2-5.4 [facility] Blood erythrocytes count (nu mber/volume)Ordered By: Alexander Hooks on 07-13-2022 RBC (Bld) [#/Vol] 4.55 10*6/uL 4.2-5.4 [facility] Blood hemoglobin measurement (mass/volume)Ordered By: Dr. Panda on 07-13-2022 Hemoglobin (Bld) [Mass/Vol] 11.0 g/dL 12.0-15.0 [facility] Blood hemoglobin measurement (mass/volume)Ordered By: Alexander Hooks on 07-13-2022 Hemoglobin (Bld) [Mass/Vol] 12.7 g/dL 12.0-15.0 [facility] Blood lymphocytes/100 leukoc ytesOrdered By: Dr. Panda on 07-13-2022 Lymphocytes/100 WBC (Bld) 12.7 % 19- [facility] Blood lymphocytes/100 leukoc ytesOrdered By: Alexander Hooks on 07-13-2022 Lymphocytes/100 WBC (Bld) 6.6 % 19-41 [facility] Blood monocytes/100 leukocyt esOrdered By: Dr. Panda on 07-13-2022 Monocytes/100 WBC (Bld) 7.7 % 0-10 [facility] Blood monocytes/100 leukocyt esOrdered By: Alexander Hooks on 07-13-2022 Monocytes/100 WBC (Bld) 6.9 % 0-10 [facility] Blood platelet mean volumeOr dered By: Dr. Panda on 07-13-2022 Platelet mean volume (Bld) [Entitic vol] 10.2 fL 6.2-12.0 [facility] Blood platelet mean volumeOr dered By: Alexander Hooks on 07-13-2022 Platelet mean volume (Bld) [Entitic vol] 10.3 fL 6.2-12.0 [facility] Determination of erythrocyte mean corpuscular volume (MCV)Ordered By: Dr. Panda on 07-13-2022 MCV (RBC) [Entitic vol] 86.5 fL 81-99 [facility] Determination of erythrocyte mean corpuscular volume (MCV)Ordered By: Alexander Hooks on 07-13-2022 MCV (RBC) [Entitic vol] 85.3 fL 81-99 [facility] Erythrocyte sedimentation ra teOrdered By: Dr. Panda on 07-13-2022 ESR (Bld) [Velocity] 69 mm/h 0-30 [facility] Erythrocyte sedimentation ra teOrdered By: Alexander Hooks on 07-13-2022 ESR (Bld) [Velocity] 57 mm/h 0-30 [facility] Hematocrit Auto (Bld) [Volum e fraction]Ordered By: Dr. Panda on 07-13-2022 Hematocrit (Bld) [Volume fraction] 34.0 % 37- [facility] Hematocrit Auto (Bld) [Volum e fraction]Ordered By: Alexander Hooks on 07-13-2022 Hematocrit (Bld) [Volume fraction] 38.8 % 37-47 [facility] Laboratory - Chemistry and C hemistry - challengeOrdered By: Alexander Hooks on 07-13-2022 CO2 [Moles/Vol] 23.0 mmol/L 21.0-32.0 [facility] Urea nitrogen/Creatinine [Mass ratio] 11.1 mg/mg 10-20 [facility] Laboratory - Hematology and Cell countsOrdered By: Dr. Panda on 07-13-2022 Erythrocyte distribution width (RBC) [Entitic vol] 43.7 fL 35.1-43.9 [facility] Erythrocyte distribution width (RBC) [Ratio] 13.7 % 11.6-14.6 [facility] Immature granulocytes/100 WBC (Bld) 1.200 % 0.0-0.9 [facility] Comment on above: IG% - Immature Granu locytes (promyelocytes, myelocytes and metamyelocytes) > 1% indicates that a LEFT SHIFT is Present. MCH (RBC) [Entitic mass] 28.0 pg 27.0-32.0 [facility] Nucleated RBC/100 WBC (Bld) [Ratio] 0 % 0-5 [facility] Laboratory - Hematology and Cell countsOrdered By: Alexander Hooks on 07-13-2022 Erythrocyte distribution width (RBC) [Entitic vol] 42.2 fL 35.1-43.9 [facility] Erythrocyte distribution width (RBC) [Ratio] 13.7 % 11.6-14.6 [facility] Immature granulocytes/100 WBC (Bld) 0.800 % 0.0-0.9 [facility] Comment on above: IG% - Immature Granu locytes (promyelocytes, myelocytes and metamyelocytes) > 1% indicates that a LEFT SHIFT is Present. MCH (RBC) [Entitic mass] 27.9 pg 27.0-32.0 [facility] Nucleated RBC/100 WBC (Bld) [Ratio] 0 % 0-5 [facility] MCHC Auto (RBC) [Mass/Vol]Or dered By: Dr. Panda on 07-13-2022 MCHC (RBC) [Mass/Vol] 32.4 g/dL 32-36 [facility] MCHC Auto (RBC) [Mass/Vol]Or dered By: Alexander Hooks on 07-13-2022 MCHC (RBC) [Mass/Vol] 32.7 g/dL 32-36 [facility] No Panel InformationOrdered By: Dr. Boyer on 07-13-2022 Methicillin-Resist S.aureus DNA PCR Positive Negative [facility] Comment on above: RESULTS CALLED TO DWAIN GRAMAJORN MS3 07/14/22 [id number] Molly Jose.REPORT READ BACK BY SAME. No Panel InformationOrdered By: Dr. Navarrete on 07-13-2022 Thyroid Stimulating Hormone (TSH) 0.33 uIU/mL 0.358-3.74 [facility] No Panel InformationOrdered By: Alexander Hooks on 07-13-2022 Estimated Creatinine Clearance Calc 52.25 ml/min [facility] Estimated GFR (MDRD) Amer 72 mL/min >60 [facility] Comment on above: GFR Calc Estimated GFR (MDRD) Non-Af Amer 60 mL/min >60 [facility] Comment on above: Non- GFR Calc Platelets bldOrdered By: Dr. Panda on 07-13-2022 Platelets (Bld) [#/Vol] 212 10*3/uL 150-450 [facility] Platelets bldOrdered By: Umesh Hooks on 07-13-2022 Platelets (Bld) [#/Vol] 255 10*3/uL 150-450 [facility] Serum or plasma C reactive p rotein measurement (mass/volume)Ordered By: Dr. Panda on 07-13-2022 CRP [Mass/Vol] 60.40 mg/L 0.0-3.0 [facility] Comment on above: C-Reactive Protein ( CRP) provides useful information for thediagnosis, therapy and monitoring of inflammatory processesand associated diseases. For the evaluation of Relative Riskfor Cardiovascular Disease, a High Sensitivity CRP (HSCRP)should be ordered. Serum or plasma C reactive p rotein measurement (mass/volume)Ordered By: Alexander Hooks on 07-13-2022 CRP [Mass/Vol] 53.70 mg/L 0.0-3.0 [facility] Comment on above: C-Reactive Protein ( CRP) provides useful information for thediagnosis, therapy and monitoring of inflammatory processesand associated diseases. For the evaluation of Relative Riskfor Cardiovascular Disease, a High Sensitivity CRP (HSCRP)should be ordered. Serum or plasma calcium thi urement (mass/volume)Ordered By: Alexander Hooks on 07-13-2022 Calcium [Mass/Vol] 9.3 mg/dL 8.5-10.1 [facility] Serum or plasma creatinine m easurement (mass/volume)Ordered By: Alexander Hooks on 07-13-2022 Creatinine [Mass/Vol] 1.08 mg/dL 0.55-1.02 [facility] Comment on above: The validity of the calculated GFR & GFRAA in patients over 70 years has not been determined. Clinical correlation is essential. Serum or plasma urea nitroge n measurement (mass/volume)Ordered By: Alexander Hooks on 07-13-2022 Urea nitrogen [Mass/Vol] 12 mg/dL 7-18 [facility] Staphylococcus aureus DNA de tection by probe and target amplification methodOrdered By: Dr. Boyer on 07-13-2022 S. aureus DNA MALIK+probe Ql (Unsp spec) Positive Negative [facility] Thin prep Papanicolaou smear with manual screeningOrdered By: Alexander Hooks on 07-13-2022 Thin prep Papanicolaou smear with manual screening 8 5-15 [facility] Whole blood hemoglobin A1c/t otal hemoglobin ratio (mass fraction)Ordered By: Dr. Panda on 07-13-2022 HbA1c (Bld) [Mass fraction] 10.5 % 3.8-5.6 [facility] Comment on above: Normal < 5.7 % Predi abetic 5.7 - 6.4 % Diabetic >or= 6.5 % Please note range changes. LABORATORYOrdered By: Tania Dale on 06-05-2022 Blood Glucose Testing Reason Routine (06/05/22 8:17 AM) [facility] Glucose [Mass/Vol] 176 mg/dL Invalid Interpretation Code 70 - 110 mg/dL [facility] LABORATORYOrdered By: Anahy Dowling on 06-05-2022 [...] Workflow SS LABORATORYOrdered By: SYSTEM SYSTEM on 06-05-2022 Calcium [Mass/Vol] 9.0 mg/dL [...] Reason Routine (06/05/22 1:57 AM) [facility] Glucose [Mass/Vol] 249 mg/dL Invalid Interpretation Code 70 - 110 mg/dL [facility] LABORATORYOrdered By: [employer] SYSTEM on 06-04-2022 Albumin BCP dye [Mass/Vol] [...] are held for 5 days. [facility] Laboratory - Microbiology an d Antimicrobial susceptibilityOrdered By: Dr. Ohara on 05-21-2022 Bacteria identified Cx Nom (Bld) No growth in 5 days. [facility] Culture, urineOrdered By: Dr Shiva Ohara on 05-17-2022 Bacteria identified Cx Nom (U) Mixed Gram Pos & Gram Neg Org [facility] Absolute lymphocyte countOrd ered By: Dr. Ohara on 05-15-2022 Lymphocytes Auto (Unsp spec) [#/Vol] 1.41 10*3/uL 0.83-4.51 [facility] Amorphous sediment detection in urine sediment by light microscopyOrdered By: Dr. Ohara on 05-15-2022 Amorphous sediment LM Ql (Urine sed) 3+ [facility] Basophil percentageOrdered B y: Dr. Ohara on 05-15-2022 Basophil percentage 5-10 SEEN /hpf 0-5 [facility] Basophils/100 WBC (Bld) 0.5 % 0-1 [facility] Chloride [Moles/Vol] 102 mmol/L 98-107 [facility] Eosinophils/100 WBC (Bld) 2.0 % 0-5 [facility] Glucose [Mass/Vol] 315 mg/dL 74-106 [facility] Comment on above: Glucose result great er than or equal to 200 mg/dLsuggests DIABETES MELLITUS per A.D.A. criteria. Lactate [Moles/Vol] 1.4 mmol/L 0.4-2.0 [facility] Neutrophils (Bld) [#/Vol] 7.3 10*3/uL 2.0-7.7 [facility] Neutrophils/100 WBC (Bld) 74.8 % 47-70 [facility] Potassium [Moles/Vol] 3.9 mmol/L 3.5-5.1 [facility] Sodium [Moles/Vol] 136 mmol/L 136-145 [facility] WBC (Bld) [#/Vol] 9.8 10*3/uL 4.4-11.0 [facility] Beta hCG serum qualOrdered B y: Dr. Ohara on 05-15-2022 Beta HCG ( test) Ql Negative [facility] Bilirubin Test strip Ql (U)O rdered By: Dr. Ohara on 05-15-2022 Bilirubin Ql (U) Negative Negative [facility] Blood erythrocytes count (nu mber/volume)Ordered By: Dr. Ohara on 05-15-2022 RBC (Bld) [#/Vol] 4.36 10*6/uL 4.2-5.4 [facility] Blood hemoglobin measurement (mass/volume)Ordered By: Dr. Ohara on 05-15-2022 Hemoglobin (Bld) [Mass/Vol] 12.7 g/dL 12.0-15.0 [facility] Blood lymphocytes/100 leukoc ytesOrdered By: Dr. Ohara on 05-15-2022 Lymphocytes/100 WBC (Bld) 14.4 % 19-41 [facility] Blood monocytes/100 leukocyt esOrdered By: Dr. Ohara on 05-15-2022 Monocytes/100 WBC (Bld) 7.3 % 0-10 [facility] Blood platelet mean volumeOr dered By: Dr. Ohara on 05-15-2022 Platelet mean volume (Bld) [Entitic vol] 10.3 fL 6.2-12.0 [facility] Determination of erythrocyte mean corpuscular volume (MCV)Ordered By: Dr. Ohara on 05-15-2022 MCV (RBC) [Entitic vol] 87.4 fL 81-99 [facility] Hematocrit Auto (Bld) [Volum e fraction]Ordered By: Dr. Ohara on 05-15-2022 Hematocrit (Bld) [Volume fraction] 38.1 % 37-47 [facility] Influenza virus A and B and SARS-CoV-2 (COVID-19) Ag panel - Upper respiratory specimOrdered By: Dr. Ohara on 05-15-2022 SARS-CoV-2 (COVID-19) RNA MALIK+probe Ql (Resp) [facility] Ketones Test strip Ql (U)Ord ered By: Dr. Ohara on 05-15-2022 Ketones Ql (U) Negative Negative [facility] Laboratory - Chemistry and C hemistry - challengeOrdered By: Dr. Ohara on 05-15-2022 CO2 [Moles/Vol] 28.0 mmol/L 21.0-32.0 [facility] Urea nitrogen/Creatinine [Mass ratio] 13.6 mg/mg 10-20 [facility] Laboratory - Hematology and Cell countsOrdered By: Dr. Ohara on 05-15-2022 Erythrocyte distribution width (RBC) [Entitic vol] 45.1 fL 35.1-43.9 [facility] Erythrocyte distribution width (RBC) [Ratio] 14.2 % 11.6-14.6 [facility] Immature granulocytes/100 WBC (Bld) 1.000 % 0.0-0.9 [facility] Comment on above: IG% - Immature Granu locytes (promyelocytes, myelocytes and metamyelocytes) > 1% indicates that a LEFT SHIFT is Present. MCH (RBC) [Entitic mass] 29.1 pg 27.0-32.0 [facility] Nucleated RBC/100 WBC (Bld) [Ratio] 0 % 0-5 [facility] MCHC Auto (RBC) [Mass/Vol]Or dered By: Dr. Ohara on 05-15-2022 MCHC (RBC) [Mass/Vol] 33.3 g/dL 32-36 [facility] Mucus LM Ql (Urine sed)Order ed By: Dr. Ohara on 05-15-2022 Mucus Ql (Urine sed) 0 SEEN /hpf [facility] Nitrite Test strip Ql (U)Ord ered By: Dr. Ohara on 05-15-2022 Nitrite Ql (U) Positive Negative [facility] No Panel InformationOrdered By: Dr. Ohara on 05-15-2022 Estimated Creatinine Clearance Calc 54.79 ml/min [facility] Estimated GFR (MDRD) Amer 76 mL/min >60 [facility] Comment on above: GFR Calc Estimated GFR (MDRD) Non-Af Amer 63 mL/min >60 [facility] Comment on above: Non- GFR Calc Platelets bldOrdered By: Dr. Ohara on 05-15-2022 Platelets (Bld) [#/Vol] 261 10*3/uL 150-450 [facility] Protein Test strip Ql (U)Ord ered By: Dr. Ohara on 05-15-2022 Protein Ql (U) 30 mg/dl Negative [facility] Serum or plasma calcium thi urement (mass/volume)Ordered By: Dr. Ohara on 05-15-2022 Calcium [Mass/Vol] 9.6 mg/dL 8.5-10.1 [facility] Serum or plasma creatinine m easurement (mass/volume)Ordered By: Dr. Ohara on 05-15-2022 Creatinine [Mass/Vol] 1.03 mg/dL 0.55-1.02 [facility] Comment on above: The validity of the calculated GFR & GFRAA in patients over 70 years has not been determined. Clinical correlation is essential. Serum or plasma urea nitroge n measurement (mass/volume)Ordered By: Dr. Ohara on 05-15-2022 Urea nitrogen [Mass/Vol] 14 mg/dL - [facility] Squamous epithelial cells de tection in urine sediment by light microscopyOrdered By: Dr. Ohara on 05-15-2022 Epithelial cells.squamous LM Ql (Urine sed) 0 SEEN /hpf 5-10 [facility] Thin prep Papanicolaou smear with manual screeningOrdered By: Dr. Ohara on 05-15-2022 Thin prep Papanicolaou smear with manual screening 6 5-15 [facility] Urine blood detectionOrdered By: Dr. Ohara on 05-15-2022 RBC Ql (U) 10 /ul Negative [facility] RBC Ql (U) 0 SEEN /hpf 0-5 [facility] Urine clarityOrdered By: Dr. Ohara on 05-15-2022 Clarity (U) Sl. Cloudy Clear [facility] Urine color determinationOrd ered By: Dr. Ohara on 05-15-2022 Color (U) Yellow Yellow [facility] Urine glucose detectionOrder ed By: Dr. Ohara on 05-15-2022 Glucose Ql (U) 1000 mg/dl Normal [facility] Urine leukocyte esterase det ection by dipstickOrdered By: Dr. Ohara on 05-15-2022 Leukocyte esterase Test strip Ql (U) 500 /ul Negative [facility] Urine pHOrdered By: Dr. Nicola boogie on 05-15-2022 pH (U) 7.0 [pH] 5.0 - 8.0 [facility] Urine sediment bacteria coun t by microscopy (number/high power field)Ordered By: Dr. Ohara on 05-15-2022 Bacteria LM.HPF (Urine sed) [#/Area] 0 /[HPF] None Seen [facility] Urine specific gravity measu rementOrdered By: Dr. Ohara on 05-15-2022 Specific gravity (U) [Rel density] 1.010 1.002-1.03 0 [facility] Urobilinogen Auto test strip Ql (U)Ordered By: Dr. Ohara on 05-15-2022 Urobilinogen Ql (U) Normal mg/dl Normal [facility] LABORATORYOrdered By: Corinne Casey on 04-27-2022 Blood Glucose Testing Reason Routine (04/27/22 11:29 AM) [facility] Glucose [Mass/Vol] 110 mg/dL Invalid Interpretation Code 70 - 110 mg/dL [facility] Blood Glucose Testing Reason Routine (04/27/22 7:53 AM) [facility] Glucose [Mass/Vol] 121 mg/dL Invalid Interpretation Code 70 - 110 mg/dL [facility] LABORATORYOrdered By: Rebecca Farrell on 04-27-2022 [...] Reason Routine (04/26/22 8:54 PM) [facility] Glucose [Mass/Vol] 126 mg/dL Invalid Interpretation Code 70 - 110 mg/dL [facility] LABORATORYOrdered By: Carmen Chow on 04-26-2022 [...] Culture Urine Culture results pending. [facility] GENTAMICIN:SUSC:PT:ISOLATE:O RDQN:MICon 04-24-2022 Gentamicin KURT [Susc] >100,000 cfu/ml Providencia stuartii >100,000 cfu/ml Morganella morganii KURT to follow >100,000 cfu/ml Alcaligenes faecalis 1,000 cfu/ml Group B Beta Hemolytic Strep (Strep agalactiae) Sensitivity testing is not recommended for one of the following reasons: 1. Established susceptibility patterns are available or 2. Interpretative criteria are not available. [facility] Gentamicin KURT [Susc]on 03-30 Alcaligenes faecalis Alcaligenes faecalis [facility] Morganella morganii Morganella morganii [facility] Providencia stuartii [facility] LABORATORYOrdered By: Carmen Chow on 04-24-2022 [...] are held for 5 days. [facility] Laboratory - Microbiology an d Antimicrobial susceptibilityOrdered By: Alexander Hooks on 04-16-2022 Bacteria identified Cx Nom (Bld) No growth in 5 days. [facility] Bacteria identified Cx Nom ( Wound)Ordered By: Alexander Hooks on 04-15-2022 Wound Culture Streptococcus group C [facility] Wound Culture Negative [facility] Wound Culture Morganella morganii sp morgani [facility] Culture, urineOrdered By: Divya Hooks on 04-13-2022 Bacteria identified Cx Nom (U) Culture exhibits no growth. [facility] Absolute lymphocyte countOrd ered By: Alexander Hooks on 04-11-2022 Lymphocytes Auto (Unsp spec) [#/Vol] 2.94 10*3/uL 0.83-4.51 [facility] Basophil percentageOrdered B y: Alexander Hooks on 04-11-2022 Basophils/100 WBC (Bld) 0.6 % 0-1 [facility] Chloride [Moles/Vol] 101 mmol/L 98-107 [facility] Eosinophils/100 WBC (Bld) 1.5 % 0-5 [facility] Glucose [Mass/Vol] 190 mg/dL 74-106 [facility] Comment on above: Fasting Glucose resu lt greater than or equal to 126 mg/dL suggests DIABETES MELLITUS per A.D.A. criteria. Lactate [Moles/Vol] 1.4 mmol/L 0.4-2.0 [facility] Neutrophils (Bld) [#/Vol] 8.0 10*3/uL 2.0-7.7 [facility] Neutrophils/100 WBC (Bld) 64.3 % 47-70 [facility] Potassium [Moles/Vol] 3.9 mmol/L 3.5-5.1 [facility] Sodium [Moles/Vol] 135 mmol/L 136-145 [facility] WBC (Bld) [#/Vol] 12.5 10*3/uL 4.4-11.0 [facility] Basophil percentage 50-100 SEEN /hpf 0-5 [facility] Bilirubin Test strip Ql (U)O rdered By: Alexander Hooks on 04-11-2022 Bilirubin Ql (U) Negative Negative [facility] Blood erythrocytes count (nu mber/volume)Ordered By: Alexander Hooks on 04-11-2022 RBC (Bld) [#/Vol] 4.48 10*6/uL 4.2-5.4 [facility] Blood hemoglobin measurement (mass/volume)Ordered By: Alexander Hooks on 04-11-2022 Hemoglobin (Bld) [Mass/Vol] 12.4 g/dL 12.0-15.0 [facility] Blood lymphocytes/100 leukoc ytesOrdered By: Alexander Hooks on 04-11-2022 Lymphocytes/100 WBC (Bld) 23.5 % 19-41 [facility] Blood monocytes/100 leukocyt esOrdered By: Alexander Hooks on 04-11-2022 Monocytes/100 WBC (Bld) 9.4 % 0-10 [facility] Blood platelet mean volumeOr dered By: Alexander Hooks on 04-11-2022 Platelet mean volume (Bld) [Entitic vol] 10.9 fL 6.2-12.0 [facility] Determination of erythrocyte mean corpuscular volume (MCV)Ordered By: Alexander Hooks on 04-11-2022 MCV (RBC) [Entitic vol] 86.2 fL 81-99 [facility] Erythrocyte sedimentation ra teOrdered By: Alexander Hooks on 04-11-2022 ESR (Bld) [Velocity] 122 mm/h 0-30 [facility] Gram stain for investigation of transfusion reactionOrdered By: Alexander Hooks on 04-11-2022 Microscopic observation Gram stain Nom (Unsp spec) [facility] Hematocrit Auto (Bld) [Volum e fraction]Ordered By: Alexander Hooks on 04-11-2022 Hematocrit (Bld) [Volume fraction] 38.6 % 37-47 [facility] Ketones Test strip Ql (U)Ord ered By: Alexander Hooks on 04-11-2022 Ketones Ql (U) 5 mg/dl Negative [facility] Laboratory - Chemistry and C hemistry - challengeOrdered By: Alexander Hooks on 04-11-2022 CO2 [Moles/Vol] 26.0 mmol/L 21.0-32.0 [facility] Urea nitrogen/Creatinine [Mass ratio] 13.4 mg/mg 10-20 [facility] HCG ( test) Ql (U) Negative [facility] Comment on above: Very dilute urine sp ecimens, as indicated by a low specificgravity, may not contain sales solutions representative levels of hCG. If is still suspected, a first morning urinespecimen should be collected 48 hours later and tested. Laboratory - Hematology and Cell countsOrdered By: Alexander Hooks on 04-11-2022 Erythrocyte distribution width (RBC) [Entitic vol] 44.8 fL 35.1-43.9 [facility] Erythrocyte distribution width (RBC) [Ratio] 14.3 % 11.6-14.6 [facility] Immature granulocytes/100 WBC (Bld) 0.700 % 0.0-0.9 [facility] Comment on above: IG% - Immature Granu locytes (promyelocytes, myelocytes and metamyelocytes) > 1% indicates that a LEFT SHIFT is Present. MCH (RBC) [Entitic mass] 27.7 pg 27.0-32.0 [facility] Nucleated RBC/100 WBC (Bld) [Ratio] 0 % 0-5 [facility] MCHC Auto (RBC) [Mass/Vol]Or dered By: Alexander Hooks on 04-11-2022 MCHC (RBC) [Mass/Vol] 32.1 g/dL 32-36 [facility] Mucus LM Ql (Urine sed)Order ed By: Alexander Hooks on 04-11-2022 Mucus Ql (Urine sed) 0 SEEN /hpf [facility] Nitrite Test strip Ql (U)Ord ered By: Alexander Hooks on 04-11-2022 Nitrite Ql (U) Positive Negative [facility] No Panel InformationOrdered By: Alexander Hooks on 04-11-2022 Estimated Creatinine Clearance Calc 62.70 ml/min [facility] Estimated GFR (MDRD) Amer 89 mL/min >60 [facility] Comment on above: GFR Calc Estimated GFR (MDRD) Non-Af Amer 74 mL/min >60 [facility] Comment on above: Non- GFR Calc Platelets bldOrdered By: Umesh Hooks on 04-11-2022 Platelets (Bld) [#/Vol] 328 10*3/uL 150-450 [facility] Protein Test strip Ql (U)Ord ered By: Alexander Hooks on 04-11-2022 Protein Ql (U) 100 mg/dl Negative [facility] Serum or plasma C reactive p rotein measurement (mass/volume)Ordered By: Alexander Hooks on 04-11-2022 CRP [Mass/Vol] 22.40 mg/L 0.0-3.0 [facility] Comment on above: C-Reactive Protein ( CRP) provides useful information for thediagnosis, therapy and monitoring of inflammatory processesand associated diseases. For the evaluation of Relative Riskfor Cardiovascular Disease, a High Sensitivity CRP (HSCRP)should be ordered. Serum or plasma calcium thi urement (mass/volume)Ordered By: Alexander Hooks on 04-11-2022 Calcium [Mass/Vol] 9.9 mg/dL 8.5-10.1 [facility] Serum or plasma creatinine m easurement (mass/volume)Ordered By: Alexander Hooks on 04-11-2022 Creatinine [Mass/Vol] 0.90 mg/dL 0.55-1.02 [facility] Comment on above: The validity of the calculated GFR & GFRAA in patients over 70 years has not been determined. Clinical correlation is essential. Serum or plasma urea nitroge n measurement (mass/volume)Ordered By: Alexander Hooks on 04-11-2022 Urea nitrogen [Mass/Vol] 12 mg/dL 7-18 [facility] Squamous epithelial cells de tection in urine sediment by light microscopyOrdered By: Alexander Hooks on 04-11-2022 Epithelial cells.squamous LM Ql (Urine sed) 0 SEEN /hpf 5-10 [facility] Thin prep Papanicolaou smear with manual screeningOrdered By: Alexander Hooks on 04-11-2022 Thin prep Papanicolaou smear with manual screening 8 5-15 [facility] Urine blood detectionOrdered By: Alexander Hooks on 04-11-2022 RBC Ql (U) 50 /ul Negative [facility] RBC Ql (U) 0-5 SEEN /hpf 0-5 [facility] Urine clarityOrdered By: Uemsh Hooks on 04-11-2022 Clarity (U) Cloudy Clear [facility] Urine color determinationOrd ered By: Alexander Hooks on 04-11-2022 Color (U) Yellow Yellow [facility] Urine glucose detectionOrder ed By: Alexander Hooks on 04-11-2022 Glucose Ql (U) Normal mg/dl Normal [facility] Urine leukocyte esterase det ection by dipstickOrdered By: Alexander Hooks on 04-11-2022 Leukocyte esterase Test strip Ql (U) 500 /ul Negative [facility] Urine pHOrdered By: Alexander christie on 04-11-2022 pH (U) 6.0 [pH] 5.0 - 8.0 [facility] Urine sediment bacteria coun t by microscopy (number/high power field)Ordered By: Alexander Hooks on 04-11-2022 Bacteria LM.HPF (Urine sed) [#/Area] 2 /[HPF] None Seen [facility] Urine specific gravity measu rementOrdered By: Alexander Hooks on 04-11-2022 Specific gravity (U) [Rel density] 1.020 1.002-1.03 0 [facility] Urobilinogen Auto test strip Ql (U)Ordered By: Alexander Hooks on 04-11-2022 Urobilinogen Ql (U) Normal mg/dl Normal [facility] Culture, urineOrdered By: Dr Shiva Barcenas on 03-25-2022 Bacteria identified Cx Nom (U) Providencia stuartii [facility] Absolute lymphocyte countOrd ered By: Dr. Barcenas on 03-22-2022 Lymphocytes Auto (Unsp spec) [#/Vol] 3.14 10*3/uL 0.83-4.51 [facility] Basophil percentageOrdered B y: Dr. Barcenas on 03-22-2022 Basophil percentage 25-50 SEEN /hpf 0-5 [facility] Basophils/100 WBC (Bld) 0.6 % 0-1 [facility] Eosinophils/100 WBC (Bld) 0.9 % 0-5 [facility] Neutrophils (Bld) [#/Vol] 9.5 10*3/uL 2.0-7.7 [facility] Neutrophils/100 WBC (Bld) 67.7 % 47-70 [facility] WBC (Bld) [#/Vol] 14.1 10*3/uL 4.4-11.0 [facility] Bilirubin Test strip Ql (U)O rdered By: Dr. Barcenas on 03-22-2022 Bilirubin Ql (U) Negative Negative [facility] Blood erythrocytes count (nu mber/volume)Ordered By: Dr. Barcenas on 03-22-2022 RBC (Bld) [#/Vol] 4.53 10*6/uL 4.2-5.4 [facility] Blood hemoglobin measurement (mass/volume)Ordered By: Dr. Barcenas on 03-22-2022 Hemoglobin (Bld) [Mass/Vol] 12.6 g/dL 12.0-15.0 [facility] Blood lymphocytes/100 leukoc ytesOrdered By: Dr. Barcenas on 03-22-2022 Lymphocytes/100 WBC (Bld) 22.3 % 19-41 [facility] Blood monocytes/100 leukocyt esOrdered By: Dr. Barcenas on 03-22-2022 Monocytes/100 WBC (Bld) 7.9 % 0-10 [facility] Blood platelet mean volumeOr dered By: Dr. Barcenas on 03-22-2022 Platelet mean volume (Bld) [Entitic vol] 10.6 fL 6.2-12.0 [facility] Determination of erythrocyte mean corpuscular volume (MCV)Ordered By: Dr. Barcenas on 03-22-2022 MCV (RBC) [Entitic vol] 87.4 fL 81-99 [facility] Glucose Glucometer (BldC) [M ass/Vol]Ordered By: Dr. Barcenas on 03-22-2022 Glucose [Mass/Vol] 125 mg/dL 74-106 [facility] Comment on above: MANAGEMENT OF PATIEN T CARE PER NURSING PROTOCOL Hematocrit Auto (Bld) [Volum e fraction]Ordered By: Dr. Barcenas on 03-22-2022 Hematocrit (Bld) [Volume fraction] 39.6 % 37-47 [facility] Ketones Test strip Ql (U)Ord ered By: Dr. Barcenas on 03-22-2022 Ketones Ql (U) 15 mg/dl Negative [facility] Laboratory - Hematology and Cell countsOrdered By: Dr. Barcenas on 03-22-2022 Erythrocyte distribution width (RBC) [Entitic vol] 45.1 fL 35.1-43.9 [facility] Erythrocyte distribution width (RBC) [Ratio] 14.0 % 11.6-14.6 [facility] Immature granulocytes/100 WBC (Bld) 0.600 % 0.0-0.9 [facility] Comment on above: IG% - Immature Granu locytes (promyelocytes, myelocytes and metamyelocytes) > 1% indicates that a LEFT SHIFT is Present. MCH (RBC) [Entitic mass] 27.8 pg 27.0-32.0 [facility] Nucleated RBC/100 WBC (Bld) [Ratio] 0 % 0-5 [facility] MCHC Auto (RBC) [Mass/Vol]Or dered By: Dr. Barcenas on 03-22-2022 MCHC (RBC) [Mass/Vol] 31.8 g/dL 32-36 [facility] Mucus LM Ql (Urine sed)Order ed By: Dr. Barcenas on 03-22-2022 Mucus Ql (Urine sed) 0 SEEN /hpf [facility] Nitrite Test strip Ql (U)Ord ered By: Dr. Barcenas on 03-22-2022 Nitrite Ql (U) Positive Negative [facility] Platelets bldOrdered By: Dr. Barcenas on 03-22-2022 Platelets (Bld) [#/Vol] 406 10*3/uL 150-450 [facility] Protein Test strip Ql (U)Ord ered By: Dr. Barcenas on 03-22-2022 Protein Ql (U) 30 mg/dl Negative [facility] Squamous epithelial cells de tection in urine sediment by light microscopyOrdered By: Dr. Barcenas on 03-22-2022 Epithelial cells.squamous LM Ql (Urine sed) 0-5 SEEN /hpf 5-10 [facility] Urine blood detectionOrdered By: Dr. Barcenas on 03-22-2022 RBC Ql (U) Negative Negative [facility] RBC Ql (U) 0 SEEN /hpf 0-5 [facility] Urine clarityOrdered By: Dr. Barcenas on 03-22-2022 Clarity (U) Sl. Cloudy Clear [facility] Urine color determinationOrd ered By: Dr. Barcenas on 03-22-2022 Color (U) Yellow Yellow [facility] Urine glucose detectionOrder ed By: Dr. Barcenas on 03-22-2022 Glucose Ql (U) Normal mg/dl Normal [facility] Urine leukocyte esterase det ection by dipstickOrdered By: Dr. Barcenas on 03-22-2022 Leukocyte esterase Test strip Ql (U) 500 /ul Negative [facility] Urine pHOrdered By: Dr. Andria sandhu on 03-22-2022 pH (U) 6.0 [pH] 5.0 - 8.0 [facility] Urine sediment bacteria coun t by microscopy (number/high power field)Ordered By: Dr. Barcenas on 03-22-2022 Bacteria LM.HPF (Urine sed) [#/Area] 1 /[HPF] None Seen [facility] Urine specific gravity measu rementOrdered By: Dr. Barcenas on 03-22-2022 Specific gravity (U) [Rel density] 1.010 1.002-1.03 0 [facility] Urobilinogen Auto test strip Ql (U)Ordered By: Dr. Barcenas on 03-22-2022 Urobilinogen Ql (U) Normal mg/dl Normal [facility] LABORATORYOrdered By: Dl Neff on 02-15-2022 Albumin BCP dye [Mass/Vol] [...] Interpretation Code AO Chemistry S US THYROID/PARATHYROIDon [facility] HBA1C (OUTSIDE)on 01-13-2022 HbA1c (Bld) [Mass fraction] 8.2 % [facility] ANGIE SCREENINGon 01-12-2022 [facility] Absolute lymphocyte counton 11-26-2021 Lymphocytes Auto (Unsp spec) [#/Vol] 1.99 10*3/uL 0.83-4.51 [facility] Work Phone: Basophil percentageon 2021 Basophils/100 WBC (Bld) 0.4 % 0-1 [facility] Work Phone: Bilirubin [Mass/Vol] 0.40 mg/dL 0.20-1.00 [facility] Work Phone: Comment on above: For patients on eltr ombopag therapy, use of Dimension [place] TBIL is not recommended. Chloride [Moles/Vol] 104 mmol/L 98-107 [facility] Work Phone: Eosinophils/100 WBC (Bld) 0.6 % 0-5 [facility] Work Phone: Glucose [Mass/Vol] 155 mg/dL 74-106 [facility] Work Phone: Comment on above: Fasting Glucose resu lt greater than or equal to 126 mg/dL suggests DIABETES MELLITUS per A.D.A. criteria. Neutrophils (Bld) [#/Vol] 10.3 10*3/uL 2.0-7.7 [facility] Work Phone: Neutrophils/100 WBC (Bld) 74.1 % 47-70 [facility] Work Phone: Potassium [Moles/Vol] 3.9 mmol/L 3.5-5.1 [facility] Work Phone: Protein [Mass/Vol] 8.2 g/dL 6.4-8.2 [facility] Work Phone: Sodium [Moles/Vol] 136 mmol/L 136-145 [facility] Work Phone: WBC (Bld) [#/Vol] 13.9 10*3/uL 4.4-11.0 [facility] Work [facility]: Blood erythrocytes count (nu mber/volume)on 11-26-2021 RBC (Bld) [#/Vol] 4.17 10*6/uL 4.2-5.4 [facility] Work Phone: Blood hemoglobin measurement (mass/volume)on 11-26-2021 Hemoglobin (Bld) [Mass/Vol] 12.3 g/dL 12.0-15.0 [facility] Work Phone: Blood lymphocytes/100 leukoc yteson 11-26-2021 Lymphocytes/100 WBC (Bld) 14.3 % 19-41 [facility] Work Phone: Blood monocytes/100 leukocyt eson 11-26-2021 Monocytes/100 WBC (Bld) 9.7 % 0-10 [facility] Work Phone: Blood platelet mean volumeon 11-26-2021 Platelet mean volume (Bld) [Entitic vol] 11.0 fL 6.2-12.0 [facility] Work Phone: Determination of erythrocyte mean corpuscular volume (MCV)on 11-26-2021 MCV (RBC) [Entitic vol] 89.0 fL 81-99 [facility] Work Phone: Hematocrit Auto (Bld) [Volum e fraction]on 11-26-2021 Hematocrit (Bld) [Volume fraction] 37.1 % 37-47 [facility] Work Phone: Laboratory - Chemistry and C hemistry - challengeon 11-26-2021 ALP [Catalytic activity/Vol] 86 U/L 45-117 [facility] Work Phone: ALT [Catalytic activity/Vol] 29 U/L 13-56 [facility] Work Phone: CO2 [Moles/Vol] 21.0 mmol/L 21.0-32.0 [facility] Work Phone: Globulin (S) [Mass/Vol] 4.8 g/dL 2.2-4.2 [facility] Work Phone: Lipase [Catalytic activity/Vol] 91 U/L 73-393 [facility] Work Phone: Urea nitrogen/Creatinine [Mass ratio] 9.9 mg/mg 10-20 [facility] Work Phone: Laboratory - Hematology and Cell countson 11-26-2021 Erythrocyte distribution width (RBC) [Entitic vol] 42.3 fL 35.1-43.9 [facility] Work Phone: Erythrocyte distribution width (RBC) [Ratio] 12.9 % 11.6-14.6 [facility] Work Phone: Immature granulocytes/100 WBC (Bld) 0.900 % 0.0-0.9 [facility] Work Phone: Comment on above: IG% - Immature Granu locytes (promyelocytes, myelocytes and metamyelocytes) > 1% indicates that a LEFT SHIFT is Present. MCH (RBC) [Entitic mass] 29.5 pg 27.0-32.0 [facility] Work Phone: Nucleated RBC/100 WBC (Bld) [Ratio] 0 % 0-5 [facility] Work Phone: MCHC Auto (RBC) [Mass/Vol]on 11-26-2021 MCHC (RBC) [Mass/Vol] 33.2 g/dL 32-36 [facility] Work [facility]: No Panel Informationon 11-26 Estimated Creatinine Clearance Calc 22.30 ml/min [facility] Work Phone: Estimated GFR (MDRD) Amer 27 mL/min >60 [facility] Work Phone: Comment on above: GFR Calc Estimated GFR (MDRD) Non-Af Amer 22 mL/min >60 [facility] Work Phone: Comment on above: Non- GFR Calc Platelets bldon 11-26-2021 Platelets (Bld) [#/Vol] 272 10*3/uL 150-450 [facility] Work Phone: Serum or plasma albumin thi urement (mass/volume)on 11-26-2021 Albumin [Mass/Vol] 3.4 g/dL 3.2-5.0 [facility] Work Phone: Serum or plasma albumin/glob ulin mass ratioon 11-26-2021 Albumin/Globulin [Mass ratio] 0.7 {ratio} 0.9-2.4 [facility] Work Phone: Serum or plasma calcium thi urement (mass/volume)on 11-26-2021 Calcium [Mass/Vol] 9.4 mg/dL 8.5-10.1 [facility] Work Phone: Serum or plasma creatinine m easurement (mass/volume)on 11-26-2021 Creatinine [Mass/Vol] 2.53 mg/dL 0.55-1.02 [facility] Work Phone: Comment on above: The validity of the calculated GFR & GFRAA in patients over 70 years has not been determined. Clinical correlation is essential. Serum or plasma urea nitroge n measurement (mass/volume)on 11-26-2021 Urea nitrogen [Mass/Vol] 25 mg/dL 7-18 [facility] Work Phone: Thin prep Papanicolaou smear with manual screeningon 11-26-2021 Thin prep Papanicolaou smear with manual screening 16 U/L 15-37 [facility] Work Phone: Thin prep Papanicolaou smear with manual screening 11 5-15 [facility] Work Phone: Absolute lymphocyte counton 11-22-2021 Lymphocytes Auto (Unsp spec) [#/Vol] 2.92 10*3/uL 0.83-4.51 [facility] Work Phone: Basophil percentageon 2021 Basophils/100 WBC (Bld) 0.7 % 0-1 [facility] Work Phone: Chloride [Moles/Vol] 110 mmol/L 98-107 [facility] Work Phone: [phone] Eosinophils/100 WBC (Bld) 2.6 % 0-5 [facility] Work Phone: Glucose [Mass/Vol] 75 mg/dL 74-106 [facility] Work Phone: Neutrophils (Bld) [#/Vol] 5.9 10*3/uL 2.0-7.7 [facility] Work Phone: Neutrophils/100 WBC (Bld) 55.8 % 47-70 [facility] Work Phone: Potassium [Moles/Vol] 3.7 mmol/L 3.5-5.1 [facility] Work Phone: Comment on above: Slight Hemolysis, Re sult may be falsely increased. Sodium [Moles/Vol] 141 mmol/L 136-145 [facility] Work Phone: WBC (Bld) [#/Vol] 10.5 10*3/uL 4.4-11.0 [facility] Work Phone: Blood erythrocytes count (nu mber/volume)on 11-22-2021 RBC (Bld) [#/Vol] 3.77 10*6/uL 4.2-5.4 [facility] Work Phone: Blood hemoglobin measurement (mass/volume)on 11-22-2021 Hemoglobin (Bld) [Mass/Vol] 11.1 g/dL 12.0-15.0 [facility] Work Phone: Blood lymphocytes/100 leukoc yteson 11-22-2021 Lymphocytes/100 WBC (Bld) 27.8 % 19-41 [facility] Work Phone: Blood monocytes/100 leukocyt eson 11-22-2021 Monocytes/100 WBC (Bld) 12.2 % 0-10 [facility] Work Phone: Blood platelet mean volumeon 11-22-2021 Platelet mean volume (Bld) [Entitic vol] 10.4 fL 6.2-12.0 [facility] Work Phone: Determination of erythrocyte mean corpuscular volume (MCV)on 11-22-2021 MCV (RBC) [Entitic vol] 90.2 fL 81-99 [facility] Work Phone: Hematocrit Auto (Bld) [Volum e fraction]on 11-22-2021 Hematocrit (Bld) [Volume fraction] 34.0 % 37-47 [facility] Work Phone: Laboratory - Chemistry and C hemistry - challengeon 11-22-2021 CO2 [Moles/Vol] 24.0 mmol/L 21.0-32.0 [facility] Work Phone: Urea nitrogen/Creatinine [Mass ratio] 10.0 mg/mg 10-20 [facility] Work Phone: Laboratory - Hematology and Cell countson 11-22-2021 Erythrocyte distribution width (RBC) [Entitic vol] 44.0 fL 35.1-43.9 [facility] Work Phone: Erythrocyte distribution width (RBC) [Ratio] 13.3 % 11.6-14.6 [facility] Work Phone: Immature granulocytes/100 WBC (Bld) 0.900 % 0.0-0.9 [facility] Work Phone: Comment on above: IG% - Immature Granu locytes (promyelocytes, myelocytes and metamyelocytes) > 1% indicates that a LEFT SHIFT is Present. MCH (RBC) [Entitic mass] 29.4 pg 27.0-32.0 [facility] Work Phone: Nucleated RBC/100 WBC (Bld) [Ratio] 0 % 0-5 [facility] Work Phone: MCHC Auto (RBC) [Mass/Vol]on 11-22-2021 MCHC (RBC) [Mass/Vol] 32.6 g/dL 32-36 [facility] Work Phone: No Panel Informationon 11-22 Estimated Creatinine Clearance Calc 47.03 ml/min [facility] Work Phone: Estimated GFR (MDRD) Amer 64 mL/min >60 [facility] Work Phone: Comment on above: GFR Calc Estimated GFR (MDRD) Non-Af Amer 53 mL/min >60 [facility] Work Phone: Comment on above: Non- GFR Calc Platelets bldon 11-22-2021 Platelets (Bld) [#/Vol] 254 10*3/uL 150-450 [facility] Work Phone: Serum or plasma calcium thi urement (mass/volume)on 11-22-2021 Calcium [Mass/Vol] 8.4 mg/dL 8.5-10.1 [facility] Work Phone: Serum or plasma creatinine m easurement (mass/volume)on 11-22-2021 Creatinine [Mass/Vol] 1.20 mg/dL 0.55-1.02 [facility] Work Phone: Comment on above: The validity of the calculated GFR & GFRAA in patients over 70 years has not been determined. Clinical correlation is essential. Serum or plasma urea nitroge n measurement (mass/volume)on 11-22-2021 Urea nitrogen [Mass/Vol] 12 mg/dL 7-18 [facility] Work Phone: Thin prep Papanicolaou smear with manual screeningon 11-22-2021 Thin prep Papanicolaou smear with manual screening 7 5-15 [facility] Work Phone: Glucose Glucometer (BldC) [M ass/Vol]on 11-21-2021 Glucose [Mass/Vol] 86 mg/dL 74-106 [facility] Work Phone: Comment on above: MANAGEMENT OF PATIEN T CARE PER NURSING PROTOCOL Absolute lymphocyte counton 11-20-2021 Lymphocytes Auto (Unsp spec) [#/Vol] 1.68 10*3/uL 0.83-4.51 [facility] Work Phone: Basophil percentageon 2021 Basophil percentage 5-10 SEEN /hpf 0-5 [facility] Work Phone: Basophils/100 WBC (Bld) 0.4 % 0-1 [facility] Work Phone: Bilirubin [Mass/Vol] 0.50 mg/dL 0.20-1.00 [facility] Work Phone: Comment on above: For patients on eltr ombopag therapy, use of Dimension [place] TBIL is not recommended. Chloride [Moles/Vol] 105 mmol/L 98-107 [facility] Work Phone: Eosinophils/100 WBC (Bld) 0.7 % 0-5 [facility] Work Phone: Glucose [Mass/Vol] 208 mg/dL 74-106 [facility] Work Phone: Comment on above: Glucose result great er than or equal to 200 mg/dLsuggests DIABETES MELLITUS per A.D.A. criteria. Lactate [Moles/Vol] 1.9 mmol/L 0.4-2.0 [facility] Work Phone: Neutrophils (Bld) [#/Vol] 14.8 10*3/uL 2.0-7.7 [facility] Work Phone: Neutrophils/100 WBC (Bld) 81.7 % 47-70 [facility] Work Phone: Potassium [Moles/Vol] 3.7 mmol/L 3.5-5.1 [facility] Work [place]: Protein [Mass/Vol] 8.0 g/dL 6.4-8.2 [facility] Work Phone: Sodium [Moles/Vol] 136 mmol/L 136-145 [facility] Work Phone: WBC (Bld) [#/Vol] 18.1 10*3/uL 4.4-11.0 [facility] Work Phone: Bilirubin Test strip Ql (U)o n 11-20-2021 Bilirubin Ql (U) Negative Negative [facility] Work Phone: Blood erythrocytes count (nu mber/volume)on 11-20-2021 RBC (Bld) [#/Vol] 4.31 10*6/uL 4.2-5.4 [facility] Work Phone: Blood hemoglobin measurement (mass/volume)on 11-20-2021 Hemoglobin (Bld) [Mass/Vol] 12.8 g/dL 12.0-15.0 [facility] Work Phone: Blood lymphocytes/100 leukoc yteson 11-20-2021 Lymphocytes/100 WBC (Bld) 9.3 % 19-41 [facility] Work Phone: Blood monocytes/100 leukocyt eson 11-20-2021 Monocytes/100 WBC (Bld) 7.1 % 0-10 [facility] Work Phone: Blood platelet mean volumeon 11-20-2021 Platelet mean volume (Bld) [Entitic vol] 11.0 fL 6.2-12.0 [facility] Work Phone: Determination of erythrocyte mean corpuscular volume (MCV)on 11-20-2021 MCV (RBC) [Entitic vol] 89.1 fL 81-99 [facility] Work Phone: [phone] Erythrocyte sedimentation ra chris 11-20-2021 ESR (Bld) [Velocity] 61 mm/h 0-30 [facility] Work Phone: Hematocrit Auto (Bld) [Volum e fraction]on 11-20-2021 Hematocrit (Bld) [Volume fraction] 38.4 % 37-47 [facility] Work Phone: INR in Blood by Coagulation assayon 11-20-2021 INR Coag (Bld) [Relative time] 0.9 {INR} [facility] Work Phone: Ketones Test strip Ql (U)on 11-20-2021 Ketones Ql (U) 5 mg/dl Negative [facility] Work Phone: Laboratory - Chemistry and C hemistry - challengeon 11-20-2021 ALP [Catalytic activity/Vol] 100 U/L 45-117 [facility] Work Phone: ALT [Catalytic activity/Vol] 51 U/L 13-56 [facility] Work Phone: CO2 [Moles/Vol] 20.0 mmol/L 21.0-32.0 [facility] Work Phone: Globulin (S) [Mass/Vol] 4.3 g/dL 2.2-4.2 [facility] Work Phone: Urea nitrogen/Creatinine [Mass ratio] 10.3 mg/mg 10-20 [facility] Work Phone: Laboratory - Coagulationon 0 11-20-2021 aPTT Coag (Bld) [Time] 29.0 s 24.1-36.2 [facility] Work Phone: PT Coag (PPP) [Time] 12.3 s 11.7-14.9 [facility] Work Phone: Laboratory - Hematology and Cell countson 11-20-2021 Erythrocyte distribution width (RBC) [Entitic vol] 41.7 fL 35.1-43.9 [facility] Work Phone: Erythrocyte distribution width (RBC) [Ratio] 12.7 % 11.6-14.6 [facility] Work Phone: Immature granulocytes/100 WBC (Bld) 0.800 % 0.0-0.9 [facility] Work Phone: Comment on above: IG% - Immature Granu locytes (promyelocytes, myelocytes and metamyelocytes) > 1% indicates that a LEFT SHIFT is Present. MCH (RBC) [Entitic mass] 29.7 pg 27.0-32.0 [facility] Work Phone: Nucleated RBC/100 WBC (Bld) [Ratio] 0 % 0-5 [facility] Work Phone: MCHC Auto (RBC) [Mass/Vol]on 11-20-2021 MCHC (RBC) [Mass/Vol] 33.3 g/dL 32-36 [facility] Work Phone: Mucus LM Ql (Urine sed)on Mucus Ql (Urine sed) 0 SEEN /hpf [facility] Work Phone: Nitrite Test strip Ql (U)on 11-20-2021 Nitrite Ql (U) Negative Negative [facility] Work Phone: No Panel Informationon 11-20 Estimated Creatinine Clearance Calc 52.74 ml/min [facility] Work Phone: Estimated GFR (MDRD) Amer 73 mL/min >60 [facility] Work Phone: Comment on above: GFR Calc Estimated GFR (MDRD) Non-Af Amer 60 mL/min >60 [facility] Work Phone: Comment on above: Non- GFR Calc Troponin I High Sensitivity < 3 pg/mL 3.0-54.0 [facility] Work Phone: Comment on above: Please Note: [place] t Units and Gender Specific Reference Ranges. For more information see Policy Stat Procedure [place] High Sensitivity Troponin (TNIH) and attachments. Methicillin-Resist S.aureus DNA PCR Negative Negative [facility] Work Phone: Platelets bldon 11-20-2021 Platelets (Bld) [#/Vol] 319 10*3/uL 150-450 [facility] Work Phone: Protein Test strip Ql (U)on 11-20-2021 Protein Ql (U) 30 mg/dl Negative [facility] Work Phone: Serum or plasma C reactive p rotein measurement (mass/volume)on 11-20-2021 CRP [Mass/Vol] 18.70 mg/L 0.0-3.0 [facility] Work Phone: Comment on above: C-Reactive Protein ( CRP) provides useful information for thediagnosis, therapy and monitoring of inflammatory processesand associated diseases. For the evaluation of Relative Riskfor Cardiovascular Disease, a High Sensitivity CRP (HSCRP)should be ordered. Serum or plasma albumin thi urement (mass/volume)on 11-20-2021 Albumin [Mass/Vol] 3.7 g/dL 3.2-5.0 [facility] Work Phone: Serum or plasma albumin/glob ulin mass ratioon 11-20-2021 Albumin/Globulin [Mass ratio] 0.9 {ratio} 0.9-2.4 [facility] Work Phone: Serum or plasma calcium thi urement (mass/volume)on 11-20-2021 Calcium [Mass/Vol] 9.7 mg/dL 8.5-10.1 [facility] Work Phone: Serum or plasma creatinine m easurement (mass/volume)on 11-20-2021 Creatinine [Mass/Vol] 1.07 mg/dL 0.55-1.02 [facility] Work Phone: Comment on above: The validity of the calculated GFR & GFRAA in patients over 70 years has not been determined. Clinical correlation is essential. Serum or plasma urea nitroge n measurement (mass/volume)on 11-20-2021 Urea nitrogen [Mass/Vol] 11 mg/dL 7-18 [facility] Work Phone: Squamous epithelial cells de tection in urine sediment by light microscopyon 11-20-2021 Epithelial cells.squamous LM Ql (Urine sed) 0-5 SEEN /hpf 5-10 [facility] Work Phone: Staphylococcus aureus DNA de tection by probe and target amplification methodon 11-20-2021 S. aureus DNA MALIK+probe Ql (Unsp spec) Negative Negative [facility] Work Phone: Thin prep Papanicolaou smear with manual screeningon 11-20-2021 Thin prep Papanicolaou smear with manual screening 30 U/L 15-37 [facility] Work Phone: Thin prep Papanicolaou smear with manual screening 11 5-15 [facility] Work Phone: Urine blood detectionon 10-28 RBC Ql (U) 10 /ul Negative [facility] Work Phone: RBC Ql (U) 0-5 SEEN /hpf 0-5 [facility] Work Phone: Urine clarityon 11-20-2021 Clarity (U) Sl Cloudy Clear [facility] Work Phone: Urine color determinationon 11-20-2021 Color (U) Yellow Yellow [facility] Work Phone: Urine glucose detectionon Glucose Ql (U) Normal mg/dl Normal [facility] Work Phone: Urine leukocyte esterase det ection by dipstickon 11-20-2021 Leukocyte esterase Test strip Ql (U) 100 /ul Negative [facility] Work Phone: Urine pHon 11-20-2021 pH (U) 7.0 [pH] 5.0 - 8.0 [facility] Work Phone: Urine sediment bacteria coun t by microscopy (number/high power field)on 11-20-2021 Bacteria LM.HPF (Urine sed) [#/Area] 1 /[HPF] None Seen [facility] Work Phone: Urine specific gravity measu rementon 11-20-2021 Specific gravity (U) [Rel density] 1.005 1.002-1.03 0 [facility] Work Phone: Urobilinogen Auto test strip Ql (U)on 11-20-2021 Urobilinogen Ql (U) Normal mg/dl Normal [facility] Work Phone: Absolute lymphocyte counton 11-15-2021 Lymphocytes Auto (Unsp spec) [#/Vol] 2.72 10*3/uL 0.83-4.51 [facility] Work Phone: Basophil percentageon 2021 Basophil percentage >100 SEEN /hpf 0-5 [facility] Work Phone: Basophils/100 WBC (Bld) 0.5 % 0-1 [facility] Work Phone: Bilirubin [Mass/Vol] 0.30 mg/dL 0.20-1.00 [facility] Work Phone: [phone] Comment on above: For patients on eltr ombopag therapy, use of Dimension [place] TBIL is not recommended. Chloride [Moles/Vol] 106 mmol/L 98-107 [facility] Work Phone: Eosinophils/100 WBC (Bld) 1.9 % 0-5 [facility] Work Phone: Glucose [Mass/Vol] 238 mg/dL 74-106 [facility] Work Phone: Comment on above: Glucose result great er than or equal to 200 mg/dLsuggests DIABETES MELLITUS per A.D.A. criteria. Lactate [Moles/Vol] 1.4 mmol/L 0.4-2.0 [facility] Work Phone: [phone] Neutrophils (Bld) [#/Vol] 5.4 10*3/uL 2.0-7.7 [facility] Work Phone: Neutrophils/100 WBC (Bld) 57.7 % 47-70 [facility] Work Phone: Potassium [Moles/Vol] 3.7 mmol/L 3.5-5.1 [place] Work Phone: Protein [Mass/Vol] 7.4 g/dL 6.4-8.2 [facility] Work Phone: Sodium [Moles/Vol] 137 mmol/L 136-145 [facility] Work Phone: WBC (Bld) [#/Vol] 9.4 10*3/uL 4.4-11.0 [facility] Work Phone: Bilirubin Test strip Ql (U)o n 11-15-2021 Bilirubin Ql (U) Negative Negative [facility] Work Phone: Blood erythrocytes count (nu mber/volume)on 11-15-2021 RBC (Bld) [#/Vol] 4.00 10*6/uL 4.2-5.4 [facility] Work [facility]: Blood hemoglobin measurement (mass/volume)on 11-15-2021 Hemoglobin (Bld) [Mass/Vol] 11.8 g/dL 12.0-15.0 [facility] Work Phone: Blood lymphocytes/100 leukoc yteson 11-15-2021 Lymphocytes/100 WBC (Bld) 29.1 % 19-41 [facility] Work Phone: Blood monocytes/100 leukocyt eson 11-15-2021 Monocytes/100 WBC (Bld) 10.4 % 0-10 [facility] Work Phone: Blood platelet mean volumeon 11-15-2021 Platelet mean volume (Bld) [Entitic vol] 10.6 fL 6.2-12.0 [facility] Work Phone: Determination of erythrocyte mean corpuscular volume (MCV)on 11-15-2021 MCV (RBC) [Entitic vol] 89.3 fL 81-99 [facility] Work Phone: Erythrocyte sedimentation ra chris 11-15-2021 ESR (Bld) [Velocity] 33 mm/h 0-30 [facility] Work Phone: Hematocrit Auto (Bld) [Volum e fraction]on 11-15-2021 Hematocrit (Bld) [Volume fraction] 35.7 % 37-47 [facility] Work Phone: Hyaline casts LM.LPF (Urine sed) [#/Area]on 11-15-2021 Hyaline casts (Urine sed) [#/Area] 0 /[LPF] 0-5 [facility] Work Phone: Ketones Test strip Ql (U)on 11-15-2021 Ketones Ql (U) Negative Negative [facility] Work Phone: Laboratory - Chemistry and C hemistry - challengeon 11-15-2021 HCG ( test) Ql (U) Negative [facility] Work Phone: Comment on above: Very dilute urine sp ecimens, as indicated by a low specificgravity, may not contain sales solutions representative levels of hCG. If is still suspected, a first morning urinespecimen should be collected 48 hours later and tested. ALP [Catalytic activity/Vol] 87 U/L 45-117 [facility] Work Phone: ALT [Catalytic activity/Vol] 44 U/L 13-56 [facility] Work Phone: CO2 [Moles/Vol] 26.0 mmol/L 21.0-32.0 [facility] Work Phone: Globulin (S) [Mass/Vol] 4.0 g/dL 2.2-4.2 [facility] Work Phone: Urea nitrogen/Creatinine [Mass ratio] 12.7 mg/mg 10-20 [facility] Work Phone: Laboratory - Hematology and Cell countson 11-15-2021 Erythrocyte distribution width (RBC) [Entitic vol] 42.5 fL 35.1-43.9 [facility] Work Phone: Erythrocyte distribution width (RBC) [Ratio] 13.0 % 11.6-14.6 [facility] Work Phone: Immature granulocytes/100 WBC (Bld) 0.400 % 0.0-0.9 [facility] Work Phone: Comment on above: IG% - Immature Granu locytes (promyelocytes, myelocytes and metamyelocytes) > 1% indicates that a LEFT SHIFT is Present. MCH (RBC) [Entitic mass] 29.5 pg 27.0-32.0 [facility] Work Phone: Nucleated RBC/100 WBC (Bld) [Ratio] 0 % 0-5 [facility] Work Phone: MCHC Auto (RBC) [Mass/Vol]on 11-15-2021 MCHC (RBC) [Mass/Vol] 33.1 g/dL 32-36 [facility] Work Phone: Mucus LM Ql (Urine sed)on Mucus Ql (Urine sed) 0 SEEN /hpf [facility] Work Phone: Nitrite Test strip Ql (U)on 11-15-2021 Nitrite Ql (U) Positive Negative [facility] Work Phone: No Panel Informationon 11-15 Estimated Creatinine Clearance Calc 55.32 ml/min [facility] Work Phone: Estimated GFR (MDRD) Amer 77 mL/min >60 [facility] Work Phone: Comment on above: GFR Calc Estimated GFR (MDRD) Non-Af Amer 64 mL/min >60 [facility] Work Phone: Comment on above: Non- GFR Calc Platelets bldon 11-15-2021 Platelets (Bld) [#/Vol] 246 10*3/uL 150-450 [facility] Work Phone: Protein Test strip Ql (U)on 11-15-2021 Protein Ql (U) 100 mg/dl Negative [facility] Work Phone: Serum or plasma C reactive p rotein measurement (mass/volume)on 11-15-2021 CRP [Mass/Vol] 8.79 mg/L 0.0-3.0 [facility] Work Phone: Comment on above: C-Reactive Protein ( CRP) provides useful information for thediagnosis, therapy and monitoring of inflammatory processesand associated diseases. For the evaluation of Relative Riskfor Cardiovascular Disease, a High Sensitivity CRP (HSCRP)should be ordered. Serum or plasma albumin thi urement (mass/volume)on 11-15-2021 Albumin [Mass/Vol] 3.4 g/dL 3.2-5.0 [facility] Work Phone: Serum or plasma albumin/glob ulin mass ratioon 11-15-2021 Albumin/Globulin [Mass ratio] 0.8 {ratio} 0.9-2.4 [facility] Work Phone: Serum or plasma calcium thi urement (mass/volume)on 11-15-2021 Calcium [Mass/Vol] 9.1 mg/dL 8.5-10.1 [facility] Work Phone: Serum or plasma creatinine m easurement (mass/volume)on 11-15-2021 Creatinine [Mass/Vol] 1.02 mg/dL 0.55-1.02 [facility] Work Phone: Comment on above: The validity of the calculated GFR & GFRAA in patients over 70 years has not been determined. Clinical correlation is essential. Serum or plasma urea nitroge n measurement (mass/volume)on 11-15-2021 Urea nitrogen [Mass/Vol] 13 mg/dL 7-18 [facility] Work Phone: Squamous epithelial cells de tection in urine sediment by light microscopyon 11-15-2021 Epithelial cells.squamous LM Ql (Urine sed) 0-5 SEEN /hpf 5-10 [facility] Work Phone: Thin prep Papanicolaou smear with manual screeningon 11-15-2021 Thin prep Papanicolaou smear with manual screening 24 U/L 15-37 [facility] Work Phone: Thin prep Papanicolaou smear with manual screening 5 5-15 [facility] Work Phone: Urine blood detectionon 06-2 0-2021 RBC Ql (U) 150 /ul Negative [facility] Work Phone: RBC Ql (U) 10-25 SEEN /hpf 0-5 [facility] Work Phone: Urine clarityon 11-15-2021 Clarity (U) Cloudy Clear [facility] Work Phone: Urine color determinationon 11-15-2021 Color (U) Yellow Yellow [facility] Work Phone: Urine glucose detectionon Glucose Ql (U) 250 mg/dl Normal [facility] Work Phone: Urine leukocyte esterase det ection by dipstickon 11-15-2021 Leukocyte esterase Test strip Ql (U) 500 /ul Negative [facility] Work Phone: Urine pHon 11-15-2021 pH (U) 6.0 [pH] 5.0 - 8.0 [facility] Work Phone: Urine sediment bacteria coun t by microscopy (number/high power field)on 11-15-2021 Bacteria LM.HPF (Urine sed) [#/Area] 4 /[HPF] None Seen [facility] Work Phone: Urine specific gravity measu rementon 11-15-2021 Specific gravity (U) [Rel density] 1.015 1.002-1.03 0 [facility] Work Phone: Urobilinogen Auto test strip Ql (U)on 11-15-2021 Urobilinogen Ql (U) Normal mg/dl Normal [facility] Work Phone: Absolute lymphocyte counton 11-05-2021 Lymphocytes Auto (Unsp spec) [#/Vol] 2.79 10*3/uL 0.83-4.51 [facility] Work Phone: Basophil percentageon 2021 Basophil percentage 5-10 SEEN /hpf 0-5 [facility] Work Phone: Basophils/100 WBC (Bld) 0.6 % 0-1 [facility] Work Phone: [phone] Chloride [Moles/Vol] 109 mmol/L 98-107 [facility] Work Phone: [phone] Eosinophils/100 WBC (Bld) 6.8 % 0-5 [facility] Work Phone: Glucose [Mass/Vol] 172 mg/dL 74-106 [facility] Work Phone: [phone] Comment on above: Fasting Glucose resu lt greater than or equal to 126 mg/dL suggests DIABETES MELLITUS per A.D.A. criteria. Neutrophils (Bld) [#/Vol] 5.4 10*3/uL 2.0-7.7 [facility] Work Phone: [phone] Neutrophils/100 WBC (Bld) 53.1 % 47-70 [facility] Work Phone: Potassium [Moles/Vol] 3.6 mmol/L 3.5-5.1 [facility] Work Phone: Sodium [Moles/Vol] 140 mmol/L 136-145 [facility] Work Phone: WBC (Bld) [#/Vol] 10.2 10*3/uL 4.4-11.0 [facility] Work Phone: Bilirubin Test strip Ql (U)o n 11-05-2021 Bilirubin Ql (U) Negative Negative [facility] Work Phone: Blood erythrocytes count (nu mber/volume)on 11-05-2021 RBC (Bld) [#/Vol] 3.99 10*6/uL 4.2-5.4 [facility] Work Phone: Blood hemoglobin measurement (mass/volume)on 11-05-2021 Hemoglobin (Bld) [Mass/Vol] 12.0 g/dL 12.0-15.0 [facility] Work Phone: Blood lymphocytes/100 leukoc yteson 11-05-2021 Lymphocytes/100 WBC (Bld) 27.3 % 19-41 [facility] Work Phone: Blood monocytes/100 leukocyt eson 11-05-2021 Monocytes/100 WBC (Bld) 11.8 % 0-10 [facility] Work Phone: Blood platelet mean volumeon 11-05-2021 Platelet mean volume (Bld) [Entitic vol] 11.4 fL 6.2-12.0 [facility] Work Phone: Determination of erythrocyte mean corpuscular volume (MCV)on 11-05-2021 MCV (RBC) [Entitic vol] 89.7 fL 81-99 [facility] Work Phone: Hematocrit Auto (Bld) [Volum e fraction]on 11-05-2021 Hematocrit (Bld) [Volume fraction] 35.8 % 37-47 [facility] Work Phone: Ketones Test strip Ql (U)on 11-05-2021 Ketones Ql (U) Negative Negative [facility] Work Phone: Laboratory - Chemistry and C hemistry - challengeon 11-05-2021 HCG ( test) Ql (U) Negative [facility] Work Phone: Comment on above: Very dilute urine sp ecimens, as indicated by a low specificgravity, may not contain sales solutions representative levels of hCG. If is still suspected, a first morning urinespecimen should be collected 48 hours later and tested. CO2 [Moles/Vol] 26.0 mmol/L 21.0-32.0 [facility] Work Phone: Urea nitrogen/Creatinine [Mass ratio] 8.3 mg/mg 10-20 [facility] Work Phone: Laboratory - Hematology and Cell countson 11-05-2021 Erythrocyte distribution width (RBC) [Entitic vol] 43.0 fL 35.1-43.9 [facility] Work Phone: Erythrocyte distribution width (RBC) [Ratio] 13.1 % 11.6-14.6 [facility] Work Phone: Immature granulocytes/100 WBC (Bld) 0.400 % 0.0-0.9 [facility] Work Phone: Comment on above: IG% - Immature Granu locytes (promyelocytes, myelocytes and metamyelocytes) > 1% indicates that a LEFT SHIFT is Present. MCH (RBC) [Entitic mass] 30.1 pg 27.0-32.0 [facility] Work Phone: Nucleated RBC/100 WBC (Bld) [Ratio] 0 % 0-5 [facility] Work Phone: MCHC Auto (RBC) [Mass/Vol]on 11-05-2021 MCHC (RBC) [Mass/Vol] 33.5 g/dL 32-36 [facility] Work Phone: Mucus LM Ql (Urine sed)on Mucus Ql (Urine sed) 0 SEEN /hpf [facility] Work Phone: Nitrite Test strip Ql (U)on 11-05-2021 Nitrite Ql (U) Negative Negative [facility] Work Phone: No Panel Informationon 11-05 Estimated Creatinine Clearance Calc 58.76 ml/min [facility] Work Phone: Estimated GFR (MDRD) Amer 82 mL/min >60 [facility] Work Phone: Comment on above: GFR Calc Estimated GFR (MDRD) Non-Af Amer 68 mL/min >60 [facility] Work Phone: Comment on above: Non- GFR Calc Platelets bldon 11-05-2021 Platelets (Bld) [#/Vol] 212 10*3/uL 150-450 [facility] Work Phone: Protein Test strip Ql (U)on 11-05-2021 Protein Ql (U) Negative Negative [facility] Work Phone: Serum or plasma calcium thi urement (mass/volume)on 11-05-2021 Calcium [Mass/Vol] 9.3 mg/dL 8.5-10.1 [facility] Work Phone: Serum or plasma creatinine m easurement (mass/volume)on 11-05-2021 Creatinine [Mass/Vol] 0.97 mg/dL 0.55-1.02 [facility] Work Phone: Comment on above: The validity of the calculated GFR & GFRAA in patients over 70 years has not been determined. Clinical correlation is essential. Serum or plasma urea nitroge n measurement (mass/volume)on 11-05-2021 Urea nitrogen [Mass/Vol] 8 mg/dL 7-18 [facility] Work Phone: Squamous epithelial cells de tection in urine sediment by light microscopyon 11-05-2021 Epithelial cells.squamous LM Ql (Urine sed) 0 SEEN /hpf 5-10 [facility] Work Phone: Thin prep Papanicolaou smear with manual screeningon 11-05-2021 Thin prep Papanicolaou smear with manual screening 5 5-15 [facility] Work Phone: Urine blood detectionon 10-27 RBC Ql (U) 25 /ul Negative [facility] Work Phone: RBC Ql (U) 0 SEEN /hpf 0-5 [facility] Work Phone: Urine clarityon 11-05-2021 Clarity (U) Sl. Cloudy Clear [facility] Work Phone: Urine color determinationon 11-05-2021 Color (U) Straw Yellow [facility] Work Phone: Urine glucose detectionon Glucose Ql (U) Normal mg/dl Normal [facility] Work Phone: Urine leukocyte esterase det ection by dipstickon 11-05-2021 Leukocyte esterase Test strip Ql (U) 500 /ul Negative [facility] Work Phone: Urine pHon 11-05-2021 pH (U) 6.5 [pH] 5.0 - 8.0 [facility] Work Phone: Urine sediment bacteria coun t by microscopy (number/high power field)on 11-05-2021 Bacteria LM.HPF (Urine sed) [#/Area] 2 /[HPF] None Seen [facility] Work Phone: Urine specific gravity measu rementon 11-05-2021 Specific gravity (U) [Rel density] 1.010 1.002-1.03 0 [facility] Work Phone: Urobilinogen Auto test strip Ql (U)on 11-05-2021 Urobilinogen Ql (U) Normal mg/dl Normal [facility] Work Phone: Absolute lymphocyte counton 10-26-2021 Lymphocytes Auto (Unsp spec) [#/Vol] 3.57 10*3/uL 0.83-4.51 [facility] Work Phone: Basophil percentageon 2021 Basophils/100 WBC (Bld) 0.6 % 0-1 [facility] Work Phone: [phone] Chloride [Moles/Vol] 103 mmol/L 98-107 [facility] Work Phone: Eosinophils/100 WBC (Bld) 3.1 % 0-5 [facility] Work Phone: [phone] Glucose [Mass/Vol] 69 mg/dL 74-106 [facility] Work Phone: Neutrophils (Bld) [#/Vol] 4.0 10*3/uL 2.0-7.7 [facility] Work Phone: [phone] Neutrophils/100 WBC (Bld) 43.7 % 47-70 [facility] Work Phone: Potassium [Moles/Vol] 3.4 mmol/L 3.5-5.1 [facility] Work Phone: Sodium [Moles/Vol] 138 mmol/L 136-145 [facility] Work Phone: WBC (Bld) [#/Vol] 9.0 10*3/uL 4.4-11.0 [facility] Work Phone: Blood erythrocytes count (nu mber/volume)on 10-26-2021 RBC (Bld) [#/Vol] 3.88 10*6/uL 4.2-5.4 [facility] Work Phone: Blood hemoglobin measurement (mass/volume)on 10-26-2021 Hemoglobin (Bld) [Mass/Vol] 11.5 g/dL 12.0-15.0 [facility] Work Phone: Blood lymphocytes/100 leukoc yteson 10-26-2021 Lymphocytes/100 WBC (Bld) 39.5 % 19-41 [facility] Work Phone: Blood monocytes/100 leukocyt eson 10-26-2021 Monocytes/100 WBC (Bld) 12.8 % 0-10 [facility] Work Phone: Blood platelet mean volumeon 10-26-2021 Platelet mean volume (Bld) [Entitic vol] 11.2 fL 6.2-12.0 [facility] Work Phone: Determination of erythrocyte mean corpuscular volume (MCV)on 10-26-2021 MCV (RBC) [Entitic vol] 92.5 fL 81-99 [facility] Work Phone: Hematocrit Auto (Bld) [Volum e fraction]on 10-26-2021 Hematocrit (Bld) [Volume fraction] 35.9 % 37-47 [facility] Work Phone: Laboratory - Chemistry and C hemistry - challengeon 10-26-2021 CO2 [Moles/Vol] 27.0 mmol/L 21.0-32.0 [facility] Work Phone: Urea nitrogen/Creatinine [Mass ratio] 16.0 mg/mg 10-20 [facility] Work Phone: Laboratory - Hematology and Cell countson 10-26-2021 Erythrocyte distribution width (RBC) [Entitic vol] 44.8 fL 35.1-43.9 [facility] Work Phone: Erythrocyte distribution width (RBC) [Ratio] 13.2 % 11.6-14.6 [facility] Work Phone: Immature granulocytes/100 WBC (Bld) 0.300 % 0.0-0.9 [facility] Work Phone: Comment on above: IG% - Immature Granu locytes (promyelocytes, myelocytes and metamyelocytes) > 1% indicates that a LEFT SHIFT is Present. MCH (RBC) [Entitic mass] 29.6 pg 27.0-32.0 [facility] Work Phone: Nucleated RBC/100 WBC (Bld) [Ratio] 0 % 0-5 [facility] Work Phone: MCHC Auto (RBC) [Mass/Vol]on 10-26-2021 MCHC (RBC) [Mass/Vol] 32.0 g/dL 32-36 [facility] Work Phone: No Panel Informationon 10-26 Estimated GFR (MDRD) Amer 61 mL/min >60 [facility] Work Phone: Comment on above: GFR Calc Estimated GFR (MDRD) Non-Af Amer 51 mL/min >60 [facility] Work Phone: Comment on above: Non- GFR Calc Platelets bldon 10-26-2021 Platelets (Bld) [#/Vol] 212 10*3/uL 150-450 [facility] Work Phone: Serum or plasma calcium thi urement (mass/volume)on 10-26-2021 Calcium [Mass/Vol] 8.9 mg/dL 8.5-10.1 [facility] Work Phone: Serum or plasma creatinine m easurement (mass/volume)on 10-26-2021 Creatinine [Mass/Vol] 1.25 mg/dL 0.55-1.02 [facility] Work Phone: Comment on above: The validity of the calculated GFR & GFRAA in patients over 70 years has not been determined. Clinical correlation is essential. Serum or plasma urea nitroge n measurement (mass/volume)on 10-26-2021 Urea nitrogen [Mass/Vol] 20 mg/dL 7-18 [facility] Work Phone: Thin prep Papanicolaou smear with manual screeningon 10-26-2021 Thin prep Papanicolaou smear with manual screening 8 5-15 [facility] Work Phone: Absolute lymphocyte counton 10-18-2021 Lymphocytes Auto (Unsp spec) [#/Vol] 2.84 10*3/uL 0.83-4.51 [facility] Work Phone: Basophil percentageon 2021 Basophils/100 WBC (Bld) 0.8 % 0-1 [facility] Work Phone: Chloride [Moles/Vol] 108 mmol/L 98-107 [facility] Work Phone: Eosinophils/100 WBC (Bld) 2.0 % 0-5 [facility] Work Phone: Glucose [Mass/Vol] 87 mg/dL 74-106 [facility] Work Phone: Neutrophils (Bld) [#/Vol] 4.8 10*3/uL 2.0-7.7 [facility] Work Phone: Neutrophils/100 WBC (Bld) 53.9 % 47-70 [facility] Work Phone: Potassium [Moles/Vol] 3.7 mmol/L 3.5-5.1 [facility] Work Phone: Sodium [Moles/Vol] 139 mmol/L 136-145 [facility] Work Phone: WBC (Bld) [#/Vol] 9.0 10*3/uL 4.4-11.0 [facility] Work Phone: Blood erythrocytes count (nu mber/volume)on 10-18-2021 RBC (Bld) [#/Vol] 3.91 10*6/uL 4.2-5.4 [facility] Work [facility]: Blood hemoglobin measurement (mass/volume)on 10-18-2021 Hemoglobin (Bld) [Mass/Vol] 11.6 g/dL 12.0-15.0 [facility] Work Phone: Blood lymphocytes/100 leukoc yteson 10-18-2021 Lymphocytes/100 WBC (Bld) 31.7 % 19-41 [facility] Work Phone: Blood monocytes/100 leukocyt eson 10-18-2021 Monocytes/100 WBC (Bld) 11.2 % 0-10 [facility] Work Phone: Blood platelet mean volumeon 10-18-2021 Platelet mean volume (Bld) [Entitic vol] 11.3 fL 6.2-12.0 [facility] Work Phone: Determination of erythrocyte mean corpuscular volume (MCV)on 10-18-2021 MCV (RBC) [Entitic vol] 91.3 fL 81-99 [facility] Work Phone: Hematocrit Auto (Bld) [Volum e fraction]on 10-18-2021 Hematocrit (Bld) [Volume fraction] 35.7 % 37-47 [facility] Work Phone: Laboratory - Chemistry and C hemistry - challengeon 10-18-2021 CO2 [Moles/Vol] 26.0 mmol/L 21.0-32.0 [facility] Work Phone: Urea nitrogen/Creatinine [Mass ratio] 18.8 mg/mg 10-20 [facility] Work Phone: Laboratory - Hematology and Cell countson 10-18-2021 Erythrocyte distribution width (RBC) [Entitic vol] 44.2 fL 35.1-43.9 [facility] Work Phone: Erythrocyte distribution width (RBC) [Ratio] 13.3 % 11.6-14.6 [facility] Work Phone: Immature granulocytes/100 WBC (Bld) 0.400 % 0.0-0.9 [facility] Work Phone: Comment on above: IG% - Immature Granu locytes (promyelocytes, myelocytes and metamyelocytes) > 1% indicates that a LEFT SHIFT is Present. MCH (RBC) [Entitic mass] 29.7 pg 27.0-32.0 [facility] Work Phone: Nucleated RBC/100 WBC (Bld) [Ratio] 0 % 0-5 [facility] Work Phone: MCHC Auto (RBC) [Mass/Vol]on 10-18-2021 MCHC (RBC) [Mass/Vol] 32.5 g/dL 32-36 [facility] Work Phone: No Panel Informationon 10-18 Estimated GFR (MDRD) Amer 83 mL/min >60 [facility] Work Phone: Comment on above: GFR Calc Estimated GFR (MDRD) Non-Af Amer 69 mL/min >60 [facility] Work Phone: Comment on above: Non- GFR Calc Platelets bldon 10-18-2021 Platelets (Bld) [#/Vol] 278 10*3/uL 150-450 [facility] Work Phone: Serum or plasma calcium thi urement (mass/volume)on 10-18-2021 Calcium [Mass/Vol] 9.4 mg/dL 8.5-10.1 [facility] Work Phone: Serum or plasma creatinine m easurement (mass/volume)on 10-18-2021 Creatinine [Mass/Vol] 0.96 mg/dL 0.55-1.02 [facility] Work Phone: Comment on above: The validity of the calculated GFR & GFRAA in patients over 70 years has not been determined. Clinical correlation is essential. Serum or plasma urea nitroge n measurement (mass/volume)on 10-18-2021 Urea nitrogen [Mass/Vol] 18 mg/dL 7-18 [facility] Work Phone: Thin prep Papanicolaou smear with manual screeningon 10-18-2021 Thin prep Papanicolaou smear with manual screening 5 5-15 [facility] Work Phone: Absolute lymphocyte counton 10-11-2021 Lymphocytes Auto (Unsp spec) [#/Vol] 3.70 10*3/uL 0.83-4.51 [facility] Work Phone: Basophil percentageon 2021 Basophils/100 WBC (Bld) 0.7 % 0-1 [facility] Work Phone: Chloride [Moles/Vol] 105 mmol/L 98-107 [facility] Work Phone: Eosinophils/100 WBC (Bld) 3.1 % 0-5 [facility] Work Phone: Glucose [Mass/Vol] 97 mg/dL 74-106 [facility] Work Phone: Neutrophils (Bld) [#/Vol] 7.6 10*3/uL 2.0-7.7 [facility] Work Phone: Neutrophils/100 WBC (Bld) 56.1 % 47-70 [facility] Work Phone: Potassium [Moles/Vol] 3.7 mmol/L 3.5-5.1 [facility] Work Phone: Sodium [Moles/Vol] 139 mmol/L 136-145 [facility] Work Phone: WBC (Bld) [#/Vol] 13.6 10*3/uL 4.4-11.0 [facility] Work Phone: Blood erythrocytes count (nu mber/volume)on 10-11-2021 RBC (Bld) [#/Vol] 4.09 10*6/uL 4.2-5.4 [facility] Work Phone: Blood hemoglobin measurement (mass/volume)on 10-11-2021 Hemoglobin (Bld) [Mass/Vol] 12.1 g/dL 12.0-15.0 [facility] Work Phone: Blood lymphocytes/100 leukoc yteson 10-11-2021 Lymphocytes/100 WBC (Bld) 27.3 % 19-41 [facility] Work Phone: Blood monocytes/100 leukocyt eson 10-11-2021 Monocytes/100 WBC (Bld) 11.1 % 0-10 [facility] Work Phone: Blood platelet mean volumeon 10-11-2021 Platelet mean volume (Bld) [Entitic vol] 11.2 fL 6.2-12.0 [facility] Work Phone: Determination of erythrocyte mean corpuscular volume (MCV)on 10-11-2021 MCV (RBC) [Entitic vol] 92.4 fL 81-99 [facility] Work Phone: Hematocrit Auto (Bld) [Volum e fraction]on 10-11-2021 Hematocrit (Bld) [Volume fraction] 37.8 % 37-47 [facility] Work Phone: Laboratory - Chemistry and C hemistry - challengeon 10-11-2021 CO2 [Moles/Vol] 25.0 mmol/L 21.0-32.0 [facility] Work Phone: Urea nitrogen/Creatinine [Mass ratio] 16.0 mg/mg 10-20 [facility] Work Phone: Laboratory - Hematology and Cell countson 10-11-2021 Erythrocyte distribution width (RBC) [Entitic vol] 45.3 fL 35.1-43.9 [facility] Work Phone: Erythrocyte distribution width (RBC) [Ratio] 13.3 % 11.6-14.6 [facility] Work Phone: Immature granulocytes/100 WBC (Bld) 1.700 % 0.0-0.9 [facility] Work Phone: Comment on above: IG% - Immature Granu locytes (promyelocytes, myelocytes and metamyelocytes) > 1% indicates that a LEFT SHIFT is Present. MCH (RBC) [Entitic mass] 29.6 pg 27.0-32.0 [facility] Work Phone: Nucleated RBC/100 WBC (Bld) [Ratio] 0 % 0-5 [facility] Work Phone: MCHC Auto (RBC) [Mass/Vol]on 10-11-2021 MCHC (RBC) [Mass/Vol] 32.0 g/dL 32-36 [facility] Work Phone: No Panel Informationon 10-11 Estimated GFR (MDRD) Amer 101 mL/min >60 [facility] Work Phone: Comment on above: GFR Calc Estimated GFR (MDRD) Non-Af Amer 83 mL/min >60 [facility] Work Phone: Comment on above: Non- GFR Calc Platelets bldon 10-11-2021 Platelets (Bld) [#/Vol] 265 10*3/uL 150-450 [facility] Work Phone: Serum or plasma calcium thi urement (mass/volume)on 10-11-2021 Calcium [Mass/Vol] 9.4 mg/dL 8.5-10.1 [facility] Work Phone: Serum or plasma creatinine m easurement (mass/volume)on 10-11-2021 Creatinine [Mass/Vol] 0.81 mg/dL 0.55-1.02 [facility] Work Phone: Comment on above: The validity of the calculated GFR & GFRAA in patients over 70 years has not been determined. Clinical correlation is essential. Serum or plasma urea nitroge n measurement (mass/volume)on 10-11-2021 Urea nitrogen [Mass/Vol] 13 mg/dL 7-18 [facility] Work Phone: Thin prep Papanicolaou smear with manual screeningon 10-11-2021 Thin prep Papanicolaou smear with manual screening 9 5-15 [facility] Work Phone: Whole blood hemoglobin A1c/t otal hemoglobin ratio (mass fraction)on 10-11-2021 HbA1c (Bld) [Mass fraction] 9.2 % 3.8-5.6 [facility] Work Phone: Comment on above: Normal < 5.7 % Predi abetic 5.7 - 6.4 % Diabetic >or= 6.5 % Please note range changes. Absolute lymphocyte counton 09-17-2021 Lymphocytes Auto (Unsp spec) [#/Vol] 2.15 10*3/uL 0.83-4.51 [facility] Work Phone: Basophil percentageon 2021 Basophil percentage 10-25 SEEN /hpf 0-5 [facility] Work Phone: Basophils/100 WBC (Bld) 0.7 % 0-1 [facility] Work Phone: Chloride [Moles/Vol] 109 mmol/L 98-107 [facility] Work Phone: Eosinophils/100 WBC (Bld) 2.7 % 0-5 [facility] Work Phone: Glucose [Mass/Vol] 273 mg/dL 74-106 [facility] Work Phone: Comment on above: Glucose result great er than or equal to 200 mg/dLsuggests DIABETES MELLITUS per A.D.A. criteria. Neutrophils (Bld) [#/Vol] 6.4 10*3/uL 2.0-7.7 [facility] Work Phone: Neutrophils/100 WBC (Bld) 64.6 % 47-70 [facility] Work Phone: Potassium [Moles/Vol] 4.1 mmol/L 3.5-5.1 [facility] Work Phone: Sodium [Moles/Vol] 137 mmol/L 136-145 [facility] Work Phone: WBC (Bld) [#/Vol] 9.9 10*3/uL 4.4-11.0 [facility] Work Phone: Bilirubin Test strip Ql (U)o n 09-17-2021 Bilirubin Ql (U) Negative Negative [facility] Work Phone: Blood erythrocytes count (nu mber/volume)on 09-17-2021 RBC (Bld) [#/Vol] 4.64 10*6/uL 4.2-5.4 [facility] Work [facility]: Blood hemoglobin measurement (mass/volume)on 09-17-2021 Hemoglobin (Bld) [Mass/Vol] 13.8 g/dL 12.0-15.0 [facility] Work Phone: Blood lymphocytes/100 leukoc yteson 09-17-2021 Lymphocytes/100 WBC (Bld) 21.7 % 19-41 [facility] Work Phone: Blood monocytes/100 leukocyt eson 09-17-2021 Monocytes/100 WBC (Bld) 9.4 % 0-10 [facility] Work Phone: Blood platelet mean volumeon 09-17-2021 Platelet mean volume (Bld) [Entitic vol] 10.6 fL 6.2-12.0 [facility] Work Phone: Culture, urineon 09-17-2021 Bacteria identified Cx Nom (U) Stenotrophomonas maltophilia [facility] Work Phone: Bacteria identified Cx Nom (U) Atopobium vaginae [facility] Work Phone: Bacteria identified Cx Nom (U) Streptococcus agalactiae (B) [facility] Work Phone: Determination of erythrocyte mean corpuscular volume (MCV)on 09-17-2021 MCV (RBC) [Entitic vol] 88.8 fL 81-99 [facility] Work Phone: Hematocrit Auto (Bld) [Volum e fraction]on 09-17-2021 Hematocrit (Bld) [Volume fraction] 41.2 % 37-47 [facility] Work Phone: Ketones Test strip Ql (U)on 09-17-2021 Ketones Ql (U) 50 mg/dl Negative [facility] Work Phone: Laboratory - Chemistry and C hemistry - challengeon 09-17-2021 CO2 [Moles/Vol] 23.0 mmol/L 21.0-32.0 [facility] Work Phone: Urea nitrogen/Creatinine [Mass ratio] 14.4 mg/mg 10-20 [facility] Work Phone: Laboratory - Hematology and Cell countson 09-17-2021 Erythrocyte distribution width (RBC) [Entitic vol] 43.7 fL 35.1-43.9 [facility] Work Phone: Erythrocyte distribution width (RBC) [Ratio] 13.4 % 11.6-14.6 [facility] Work Phone: Immature granulocytes/100 WBC (Bld) 0.900 % 0.0-0.9 [facility] Work Phone: Comment on above: IG% - Immature Granu locytes (promyelocytes, myelocytes and metamyelocytes) > 1% indicates that a LEFT SHIFT is Present. MCH (RBC) [Entitic mass] 29.7 pg 27.0-32.0 [facility] Work Phone: Nucleated RBC/100 WBC (Bld) [Ratio] 0 % 0-5 [facility] Work Phone: MCHC Auto (RBC) [Mass/Vol]on 09-17-2021 MCHC (RBC) [Mass/Vol] 33.5 g/dL 32-36 [facility] Work Phone: Mucus LM Ql (Urine sed)on Mucus Ql (Urine sed) 0 SEEN /hpf [facility] Work Phone: Nitrite Test strip Ql (U)on 09-17-2021 Nitrite Ql (U) Positive Negative [facility] Work Phone: No Panel Informationon 09-17 Estimated Creatinine Clearance Calc 60.28 ml/min [facility] Work Phone: Estimated GFR (MDRD) Amer 89 mL/min >60 [facility] Work Phone: Comment on above: GFR Calc Estimated GFR (MDRD) Non-Af Amer 74 mL/min >60 [facility] Work Phone: Comment on above: Non- GFR Calc Platelets bldon 09-17-2021 Platelets (Bld) [#/Vol] 177 10*3/uL 150-450 [facility] Work Phone: Protein Test strip Ql (U)on 09-17-2021 Protein Ql (U) 30 mg/dl Negative [facility] Work Phone: Serum or plasma calcium thi urement (mass/volume)on 09-17-2021 Calcium [Mass/Vol] 9.0 mg/dL 8.5-10.1 [facility] Work Phone: Serum or plasma creatinine m easurement (mass/volume)on 09-17-2021 Creatinine [Mass/Vol] 0.90 mg/dL 0.55-1.02 [facility] Work Phone: Comment on above: The validity of the calculated GFR & GFRAA in patients over 70 years has not been determined. Clinical correlation is essential. Serum or plasma urea nitroge n measurement (mass/volume)on 09-17-2021 Urea nitrogen [Mass/Vol] 13 mg/dL 7-18 [facility] Work Phone: Squamous epithelial cells de tection in urine sediment by light microscopyon 09-17-2021 Epithelial cells.squamous LM Ql (Urine sed) 0-5 SEEN /hpf 5-10 [facility] Work Phone: Thin prep Papanicolaou smear with manual screeningon 09-17-2021 Thin prep Papanicolaou smear with manual screening 5 5-15 [facility] Work Phone: Urine blood detectionon 08-28 RBC Ql (U) 25 /ul Negative [facility] Work Phone: RBC Ql (U) 0 SEEN /hpf 0-5 [facility] Work Phone: Urine clarityon 09-17-2021 Clarity (U) Sl Cldy Clear [facility] Work Phone: Comment on above: Previous reported re sult: Clear Edited by: NIMCO on 09/17/21:1645 AMENDED REPORT 09/17/21 [id number] CLARITY previously reported as: Clear Urine color determinationon 09-17-2021 Color (U) Yellow Yellow [facility] Work Phone: Urine glucose detectionon Glucose Ql (U) 1000 mg/dl Normal [facility] Work Phone: Urine leukocyte esterase det ection by dipstickon 09-17-2021 Leukocyte esterase Test strip Ql (U) 500 /ul Negative [facility] Work Phone: Urine pHon 09-17-2021 pH (U) 6.5 [pH] 5.0 - 8.0 [facility] Work Phone: Urine sediment bacteria coun t by microscopy (number/high power field)on 09-17-2021 Bacteria LM.HPF (Urine sed) [#/Area] 2 /[HPF] None Seen [facility] Work Phone: Urine specific gravity measu rementon 09-17-2021 Specific gravity (U) [Rel density] 1.015 1.002-1.03 0 [facility] Work Phone: Urobilinogen Auto test strip Ql (U)on 09-17-2021 Urobilinogen Ql (U) Normal mg/dl Normal [facility] Work Phone: MRI BRAIN WO/W IVCONon 09-09 [facility] MRI LUMBAR SPINE WO IVCONon 09-09-2021 [facility] MARY BY IFA WITH REFLEXon Nuclear Ab IF (S) [Titer] Negative Negative [facility] RHEUMATOID FACTOR BLon 08-27 Rheumatoid factor Qn [IU]/mL <16 IU/mL [facility] TSH BLDon 08-27-2021 TSH Qn 1.370 m[IU]/L 0.270 - 4.200 mIU/L [facility] VITAMIN B12 BLOODon 08-28-19 Cobalamin (Vitamin B12) [Mass/Vol] 404 pg/mL 232-1,245 pg/mL [facility] Absolute lymphocyte counton 08-20-2021 Lymphocytes Auto (Unsp spec) [#/Vol] 3.30 10*3/uL 0.83-4.51 [facility] Work Phone: Basophil percentageon 2021 Basophil percentage >100 SEEN /hpf 0-5 [facility] Work Phone: Basophils/100 WBC (Bld) 0.8 % 0-1 [facility] Work Phone: Chloride [Moles/Vol] 105 mmol/L 98-107 [facility] Work Phone: [phone] Eosinophils/100 WBC (Bld) 1.8 % 0-5 [facility] Work Phone: Glucose [Mass/Vol] 333 mg/dL 74-106 [facility] Work Phone: [phone] Comment on above: Glucose result great er than or equal to 200 mg/dLsuggests DIABETES MELLITUS per A.D.A. criteria. Neutrophils (Bld) [#/Vol] 6.2 10*3/uL 2.0-7.7 [facility] Work Phone: Neutrophils/100 WBC (Bld) 57.0 % 47-70 [facility] Work Phone: Potassium [Moles/Vol] 3.6 mmol/L 3.5-5.1 [facility] [place]: Sodium [Moles/Vol] 136 mmol/L 136-145 [facility] Work Phone: WBC (Bld) [#/Vol] 10.8 10*3/uL 4.4-11.0 [facility] Work Phone: Bilirubin Test strip Ql (U)o n 08-20-2021 Bilirubin Ql (U) Negative Negative [facility] Work Phone: Blood erythrocytes count (nu mber/volume)on 08-20-2021 RBC (Bld) [#/Vol] 4.59 10*6/uL 4.2-5.4 [facility] Work Phone: Blood hemoglobin measurement (mass/volume)on 08-20-2021 Hemoglobin (Bld) [Mass/Vol] 13.9 g/dL 12.0-15.0 [facility] Work Phone: Blood lymphocytes/100 leukoc yteson 08-20-2021 Lymphocytes/100 WBC (Bld) 30.4 % 19-41 [facility] Work Phone: Blood monocytes/100 leukocyt eson 08-20-2021 Monocytes/100 WBC (Bld) 9.4 % 0-10 [facility] Work Phone: Blood platelet mean volumeon 08-20-2021 Platelet mean volume (Bld) [Entitic vol] 11.0 fL 6.2-12.0 [facility] Work Phone: Culture, urineon 08-20-2021 Bacteria identified Cx Nom (U) Serratia rubidaea [facility] Work Phone: Determination of erythrocyte mean corpuscular volume (MCV)on 08-20-2021 MCV (RBC) [Entitic vol] 89.5 fL 81-99 [facility] Work Phone: Hematocrit Auto (Bld) [Volum e fraction]on 08-20-2021 Hematocrit (Bld) [Volume fraction] 41.1 % 37-47 [facility] Work Phone: Ketones Test strip Ql (U)on 08-20-2021 Ketones Ql (U) Negative Negative [facility] Work Phone: Laboratory - Chemistry and C hemistry - challengeon 08-20-2021 CO2 [Moles/Vol] 24.0 mmol/L 21.0-32.0 [facility] Work Phone: Urea nitrogen/Creatinine [Mass ratio] 13.2 mg/mg 10-20 [facility] Work Phone: Laboratory - Hematology and Cell countson 08-20-2021 Erythrocyte distribution width (RBC) [Entitic vol] 43.9 fL 35.1-43.9 [facility] Work Phone: Erythrocyte distribution width (RBC) [Ratio] 13.4 % 11.6-14.6 [facility] Work Phone: Immature granulocytes/100 WBC (Bld) 0.600 % 0.0-0.9 [facility] Work Phone: Comment on above: IG% - Immature Granu locytes (promyelocytes, myelocytes and metamyelocytes) > 1% indicates that a LEFT SHIFT is Present. MCH (RBC) [Entitic mass] 30.3 pg 27.0-32.0 [facility] Work Phone: Nucleated RBC/100 WBC (Bld) [Ratio] 0 % 0-5 [facility] Work Phone: MCHC Auto (RBC) [Mass/Vol]on 08-20-2021 MCHC (RBC) [Mass/Vol] 33.8 g/dL 32-36 [facility] Work Phone: Mucus LM Ql (Urine sed)on Mucus Ql (Urine sed) 0 SEEN /hpf [facility] Work Phone: Nitrite Test strip Ql (U)on 08-20-2021 Nitrite Ql (U) Positive Negative [facility] Work Phone: No Panel Informationon 08-20 Estimated GFR (MDRD) Amer 74 mL/min >60 [facility] Work Phone: Comment on above: GFR Calc Estimated GFR (MDRD) Non-Af Amer 61 mL/min >60 [facility] Work Phone: Comment on above: Non- GFR Calc Platelets bldon 08-20-2021 Platelets (Bld) [#/Vol] 214 10*3/uL 150-450 [facility] Work Phone: Protein Test strip Ql (U)on 08-20-2021 Protein Ql (U) 100 mg/dl Negative [facility] Work Phone: Serum or plasma calcium thi urement (mass/volume)on 08-20-2021 Calcium [Mass/Vol] 8.6 mg/dL 8.5-10.1 [facility] Work Phone: Serum or plasma creatinine m easurement (mass/volume)on 08-20-2021 Creatinine [Mass/Vol] 1.06 mg/dL 0.55-1.02 [facility] Work Phone: Comment on above: The validity of the calculated GFR & GFRAA in patients over 70 years has not been determined. Clinical correlation is essential. Serum or plasma urea nitroge n measurement (mass/volume)on 08-20-2021 Urea nitrogen [Mass/Vol] 14 mg/dL 7-18 [facility] Work Phone: Squamous epithelial cells de tection in urine sediment by light microscopyon 08-20-2021 Epithelial cells.squamous LM Ql (Urine sed) 0-5 SEEN /hpf 5-10 [facility] Work Phone: Thin prep Papanicolaou smear with manual screeningon 08-20-2021 Thin prep Papanicolaou smear with manual screening 7 5-15 [facility] Work Phone: Urine blood detectionon - RBC Ql (U) 25 /ul Negative [facility] Work Phone: RBC Ql (U) 0-5 SEEN /hpf 0-5 [facility] Work Phone: Urine clarityon 08-20-2021 Clarity (U) Sl. Cloudy Clear [facility] Work Phone: Urine color determinationon 08-20-2021 Color (U) Yellow Yellow [facility] Work Phone: Urine glucose detectionon Glucose Ql (U) 1000 mg/dl Normal [facility] Work Phone: Urine leukocyte esterase det ection by dipstickon 08-20-2021 Leukocyte esterase Test strip Ql (U) 500 /ul Negative [facility] Work Phone: Urine pHon 08-20-2021 pH (U) 6.0 [pH] 5.0 - 8.0 [facility] Work Phone: Urine sediment bacteria coun t by microscopy (number/high power field)on 08-20-2021 Bacteria LM.HPF (Urine sed) [#/Area] 4 /[HPF] None Seen [facility] Work Phone: Urine specific gravity measu rementon 08-20-2021 Specific gravity (U) [Rel density] 1.015 1.002-1.03 0 [facility] Work Phone: Urobilinogen Auto test strip Ql (U)on 08-20-2021 Urobilinogen Ql (U) Normal mg/dl Normal [facility] Work Phone: Absolute lymphocyte counton 06-30-2021 Lymphocytes Auto (Unsp spec) [#/Vol] 2.93 10*3/uL 0.83-4.51 [facility] Work Phone: Basophil percentageon 2021 Basophils/100 WBC (Bld) 0.6 % 0-1 [facility] Work Phone: Chloride [Moles/Vol] 104 mmol/L 98-107 [facility] Work Phone: [phone] Eosinophils/100 WBC (Bld) 3.5 % 0-5 [facility] Work Phone: Glucose [Mass/Vol] 302 mg/dL 74-106 [facility] Work Phone: Comment on above: Glucose result great er than or equal to 200 mg/dLsuggests DIABETES MELLITUS per A.D.A. criteria. Neutrophils (Bld) [#/Vol] 5.6 10*3/uL 2.0-7.7 [facility] Work Phone: Neutrophils/100 WBC (Bld) 54.8 % 47-70 [facility] Work Phone: Potassium [Moles/Vol] 3.7 mmol/L 3.5-5.1 [facility] Work Phone: [phone] Sodium [Moles/Vol] 136 mmol/L 136-145 [facility] Work Phone: WBC (Bld) [#/Vol] 10.2 10*3/uL 4.4-11.0 [facility] Work Phone: Blood erythrocytes count (nu mber/volume)on 06-30-2021 RBC (Bld) [#/Vol] 4.49 10*6/uL 4.2-5.4 [facility] Work Phone: [phone] Blood hemoglobin measurement (mass/volume)on 06-30-2021 Hemoglobin (Bld) [Mass/Vol] 13.0 g/dL 12.0-15.0 [facility] Work Phone: [phone] Blood lymphocytes/100 leukoc yteson 06-30-2021 Lymphocytes/100 WBC (Bld) 28.8 % 19-41 [facility] Work Phone: Blood monocytes/100 leukocyt eson 06-30-2021 Monocytes/100 WBC (Bld) 10.2 % 0-10 [facility] Work Phone: Blood platelet mean volumeon 06-30-2021 Platelet mean volume (Bld) [Entitic vol] 10.6 fL 6.2-12.0 [facility] Work Phone: Determination of erythrocyte mean corpuscular volume (MCV)on 06-30-2021 MCV (RBC) [Entitic vol] 87.8 fL 81-99 [facility] Work Phone: Hematocrit Auto (Bld) [Volum e fraction]on 06-30-2021 Hematocrit (Bld) [Volume fraction] 39.4 % 37-47 [facility] Work Phone: Laboratory - Chemistry and C hemistry - challengeon 06-30-2021 CO2 [Moles/Vol] 23.0 mmol/L 21.0-32.0 [facility] Work Phone: Urea nitrogen/Creatinine [Mass ratio] 9.7 mg/mg 10-20 [facility] Work Phone: Laboratory - Hematology and Cell countson 06-30-2021 Erythrocyte distribution width (RBC) [Entitic vol] 43.4 fL 35.1-43.9 [facility] Work Phone: Erythrocyte distribution width (RBC) [Ratio] 13.5 % 11.6-14.6 [facility] Work Phone: Immature granulocytes/100 WBC (Bld) 2.100 % 0.0-0.9 [facility] Work Phone: Comment on above: IG% - Immature Granu locytes (promyelocytes, myelocytes and metamyelocytes) > 1% indicates that a LEFT SHIFT is Present. MCH (RBC) [Entitic mass] 29.0 pg 27.0-32.0 [facility] Work Phone: Nucleated RBC/100 WBC (Bld) [Ratio] 0 % 0-5 [facility] Work Phone: MCHC Auto (RBC) [Mass/Vol]on 06-30-2021 MCHC (RBC) [Mass/Vol] 33.0 g/dL 32-36 [facility] Work Phone: No Panel Informationon 06-30 Estimated Creatinine Clearance Calc 61.95 ml/min [facility] Work Phone: Estimated GFR (MDRD) Amer 87 mL/min >60 [facility] Work Phone: Comment on above: GFR Calc Estimated GFR (MDRD) Non-Af Amer 72 mL/min >60 [facility] Work Phone: Comment on above: Non- GFR Calc Platelets bldon 06-30-2021 Platelets (Bld) [#/Vol] 228 10*3/uL 150-450 [facility] Work Phone: Serum or plasma calcium thi urement (mass/volume)on 06-30-2021 Calcium [Mass/Vol] 8.8 mg/dL 8.5-10.1 [facility] Work Phone: Serum or plasma creatinine m easurement (mass/volume)on 06-30-2021 Creatinine [Mass/Vol] 0.92 mg/dL 0.55-1.02 [facility] Work Phone: Comment on above: The validity of the calculated GFR & GFRAA in patients over 70 years has not been determined. Clinical correlation is essential. Serum or plasma urea nitroge n measurement (mass/volume)on 06-30-2021 Urea nitrogen [Mass/Vol] 9 mg/dL 7-18 [facility] Work Phone: Thin prep Papanicolaou smear with manual screeningon 06-30-2021 Thin prep Papanicolaou smear with manual screening 9 5-15 [facility] Work Phone: Amorphous sediment detection in urine sediment by light microscopyon 06-28-2021 Amorphous sediment LM Ql (Urine sed) 1+ [facility] Work Phone: Basophil percentageon 2021 Basophil percentage 10-25 SEEN /hpf [facility] Work Phone: Bilirubin Test strip Ql (U)o n 06-28-2021 Bilirubin Ql (U) Negative Negative [facility] Work Phone: Ketones Test strip Ql (U)on 06-28-2021 Ketones Ql (U) 5 mg/dl Negative [facility] Work Phone: Laboratory - Microbiology an d Antimicrobial susceptibilityon 06-28-2021 Bacteria identified Cx Nom (Bld) No growth in 5 days. [facility] Work Phone: Mucus LM Ql (Urine sed)on Mucus Ql (Urine sed) 0 SEEN /hpf [facility] Work Phone: Nitrite Test strip Ql (U)on 06-28-2021 Nitrite Ql (U) Positive Negative [facility] Work Phone: Protein Test strip Ql (U)on 06-28-2021 Protein Ql (U) 30 mg/dl Negative [facility] Work Phone: Squamous epithelial cells de tection in urine sediment by light microscopyon 06-28-2021 Epithelial cells.squamous LM Ql (Urine sed) 0-5 SEEN /hpf [facility] Work Phone: Urine blood detectionon 05-31 RBC Ql (U) 25 /ul Negative [facility] Work Phone: RBC Ql (U) 0-5 SEEN /hpf [facility] Work Phone: Urine clarityon 06-28-2021 Clarity (U) Cloudy Clear [facility] Work Phone: Urine color determinationon 06-28-2021 Color (U) Yellow Yellow [facility] Work Phone: Urine glucose detectionon Glucose Ql (U) 1000 mg/dl Normal [facility] Work Phone: Urine leukocyte esterase det ection by dipstickon 06-28-2021 Leukocyte esterase Test strip Ql (U) 100 /ul Negative [facility] Work Phone: Urine pHon 06-28-2021 pH (U) 6.5 [pH] [facility] Work Phone: Urine sediment bacteria coun t by microscopy (number/high power field)on 06-28-2021 Bacteria LM.HPF (Urine sed) [#/Area] 4 /[HPF] None Seen [facility] Work Phone: Urine specific gravity measu rementon 06-28-2021 Specific gravity (U) [Rel density] 1.015 [facility] Work Phone: Urobilinogen Auto test strip Ql (U)on 06-28-2021 Urobilinogen Ql (U) Normal mg/dl Normal [facility] Work Phone: Absolute lymphocyte counton 06-27-2021 Lymphocytes Auto (Unsp spec) [#/Vol] 2.85 10*3/uL 0.83-4.51 [facility] Work Phone: Basophil percentageon 2021 Basophils/100 WBC (Bld) 0.6 % 0-1 [facility] Work Phone: Bilirubin [Mass/Vol] 0.30 mg/dL 0.20-1.00 [facility] Work Phone: Comment on above: For patients on eltr ombopag therapy, use of Dimension [place] TBIL is not recommended. Chloride [Moles/Vol] 103 mmol/L 98-107 [facility] Work Phone: Eosinophils/100 WBC (Bld) 1.9 % 0-5 [facility] Work Phone: Glucose [Mass/Vol] 294 mg/dL 74-106 [facility] Work Phone: Comment on above: Glucose result great er than or equal to 200 mg/dLsuggests DIABETES MELLITUS per A.D.A. criteria. Lactate [Moles/Vol] 1.5 mmol/L 0.4-2.0 [facility] Work Phone: [phone] Neutrophils (Bld) [#/Vol] 11.2 10*3/uL 2.0-7.7 [facility] Work Phone: [phone] Neutrophils/100 WBC (Bld) 70.3 % 47-70 [facility] Work Phone: [phone] Potassium [Moles/Vol] 4.0 mmol/L 3.5-5.1 [facility] Work Phone: [phone] Comment on above: Moderate Hemolysis, Result may be falsely increased. Protein [Mass/Vol] 8.0 g/dL 6.4-8.2 [facility] Work Phone: [phone] Sodium [Moles/Vol] 135 mmol/L 136-145 [facility] Work Phone: [phone] WBC (Bld) [#/Vol] 15.9 10*3/uL 4.4-11.0 [facility] Work Phone: Blood erythrocytes count (nu mber/volume)on 06-27-2021 RBC (Bld) [#/Vol] 4.66 10*6/uL 4.2-5.4 [facility] Work Phone: [phone] Blood hemoglobin measurement (mass/volume)on 06-27-2021 Hemoglobin (Bld) [Mass/Vol] 13.6 g/dL 12.0-15.0 [facility] Work Phone: Blood lymphocytes/100 leukoc yteson 06-27-2021 Lymphocytes/100 WBC (Bld) 17.9 % 19-41 [facility] Work Phone: Blood monocytes/100 leukocyt eson 06-27-2021 Monocytes/100 WBC (Bld) 7.5 % 0-10 [facility] Work Phone: [phone] Blood platelet mean volumeon 01-30-2022 Platelet mean volume (Bld) [Entitic vol] 11.2 fL 6.2-12.0 [facility] Work Phone: Culture, urineon 06-27-2021 Bacteria identified Cx Nom (U) Mixed Gram Pos & Gram Neg Org [facility] Work Phone: Determination of erythrocyte mean corpuscular volume (MCV)on 06-27-2021 MCV (RBC) [Entitic vol] 88.8 fL 81-99 [facility] Work Phone: Hematocrit Auto (Bld) [Volum e fraction]on 06-27-2021 Hematocrit (Bld) [Volume fraction] 41.4 % 37-47 [facility] Work Phone: Laboratory - Chemistry and C hemistry - challengeon 06-27-2021 ALP [Catalytic activity/Vol] 88 U/L 45-117 [facility] Work Phone: ALT [Catalytic activity/Vol] 56 U/L 13-56 [facility] Work Phone: CO2 [Moles/Vol] 25.0 mmol/L 21.0-32.0 [facility] Work Phone: Globulin (S) [Mass/Vol] 4.4 g/dL 2.2-4.2 [facility] Work Phone: Urea nitrogen/Creatinine [Mass ratio] 11.0 mg/mg 10-20 [facility] Work Phone: Laboratory - Hematology and Cell countson 06-27-2021 Erythrocyte distribution width (RBC) [Entitic vol] 44.1 fL 35.1-43.9 [facility] Work Phone: Erythrocyte distribution width (RBC) [Ratio] 13.6 % 11.6-14.6 [facility] Work Phone: Immature granulocytes/100 WBC (Bld) 1.800 % 0.0-0.9 [facility] Work Phone: Comment on above: IG% - Immature Granu locytes (promyelocytes, myelocytes and metamyelocytes) > 1% indicates that a LEFT SHIFT is Present. MCH (RBC) [Entitic mass] 29.2 pg 27.0-32.0 [facility] Work Phone: Nucleated RBC/100 WBC (Bld) [Ratio] 0 % 0-5 [facility] Work Phone: MCHC Auto (RBC) [Mass/Vol]on 06-27-2021 MCHC (RBC) [Mass/Vol] 32.9 g/dL 32-36 [facility] Work Phone: No Panel Informationon 06-27 Estimated Creatinine Clearance Calc 56.99 ml/min [facility] Work Phone: Estimated GFR (MDRD) Amer 79 mL/min >60 [facility] Work Phone: Comment on above: GFR Calc Estimated GFR (MDRD) Non-Af Amer 65 mL/min >60 [facility] Work Phone: Comment on above: Non- GFR Calc Platelets bldon 06-27-2021 Platelets (Bld) [#/Vol] 215 10*3/uL 150-450 [facility] Work Phone: Serum or plasma albumin thi urement (mass/volume)on 06-27-2021 Albumin [Mass/Vol] 3.6 g/dL 3.2-5.0 [facility] Work Phone: Serum or plasma albumin/glob ulin mass ratioon 06-27-2021 Albumin/Globulin [Mass ratio] 0.8 {ratio} 0.9-2.4 [facility] Work Phone: Serum or plasma calcium thi urement (mass/volume)on 06-27-2021 Calcium [Mass/Vol] 8.9 mg/dL 8.5-10.1 [facility] Work Phone: Serum or plasma creatinine m easurement (mass/volume)on 06-27-2021 Creatinine [Mass/Vol] 1.00 mg/dL 0.55-1.02 [facility] Work Phone: Comment on above: The validity of the calculated GFR & GFRAA in patients over 70 years has not been determined. Clinical correlation is essential. Serum or plasma urea nitroge n measurement (mass/volume)on 06-27-2021 Urea nitrogen [Mass/Vol] 11 mg/dL 7-18 [facility] Work Phone: Thin prep Papanicolaou smear with manual screeningon 06-27-2021 Thin prep Papanicolaou smear with manual screening 45 U/L 15-37 [facility] Work Phone: Comment on above: Moderate Hemolysis, Result may be falsely increased. Thin prep Papanicolaou smear with manual screening 7 5-15 [facility] Work Phone: Absolute lymphocyte counton 06-03-2021 Lymphocytes Auto (Unsp spec) [#/Vol] 1.29 10*3/uL 0.83-4.51 [facility] Work Phone: Basophil percentageon 2021 Basophils/100 WBC (Bld) 0.7 % 0-1 [facility] Work Phone: Chloride [Moles/Vol] 100 mmol/L 98-107 [facility] Work Phone: Eosinophils/100 WBC (Bld) 1.6 % 0-5 [facility] Work Phone: Glucose [Mass/Vol] 291 mg/dL 74-106 [facility] Work Phone: Comment on above: Glucose result great er than or equal to 200 mg/dLsuggests DIABETES MELLITUS per A.D.A. criteria.Please note revised GLUCOSE reference range effective 2017. Lactate [Moles/Vol] 1.6 mmol/L 0.4-2.0 [facility]: Neutrophils (Bld) [#/Vol] 7.1 10*3/uL 2.0-7.7 [facility] Work Phone: Neutrophils/100 WBC (Bld) 75.2 % 47-70 [facility] Work Phone: Potassium [Moles/Vol] 3.7 mmol/L 3.5-5.1 [facility] Work Phone: Sodium [Moles/Vol] 134 mmol/L 136-145 [facility] Work Phone: WBC (Bld) [#/Vol] 9.4 10*3/uL 4.4-11.0 [facility] Work Phone: Blood erythrocytes count (nu mber/volume)on 06-03-2021 RBC (Bld) [#/Vol] 4.99 10*6/uL 4.2-5.4 [facility] Work Phone: Blood hemoglobin measurement (mass/volume)on 06-03-2021 Hemoglobin (Bld) [Mass/Vol] 14.6 g/dL 12.0-15.0 [facility] Work Phone: Blood lymphocytes/100 leukoc yteson 06-03-2021 Lymphocytes/100 WBC (Bld) 13.8 % 19-41 [facility] Work Phone: Blood manual differential co mment interpretation (narrative result)on 06-03-2021 Manual differential comment Allen (Bld) [Interp] SCANNED [facility] Work Phone: Comment on above: AUTO DIFF OK Blood monocytes/100 leukocyt eson 06-03-2021 Monocytes/100 WBC (Bld) 7.2 % 0-10 [facility] Work Phone: Blood platelet mean volumeon 06-03-2021 Platelet mean volume (Bld) [Entitic vol] 10.9 fL 6.2-12.0 [facility] Work Phone: Determination of erythrocyte mean corpuscular volume (MCV)on 06-03-2021 MCV (RBC) [Entitic vol] 88.0 fL 81-99 [facility] Work Phone: Hematocrit Auto (Bld) [Volum e fraction]on 06-03-2021 Hematocrit (Bld) [Volume fraction] 43.9 % 37-47 [facility] Work Phone: Laboratory - Chemistry and C hemistry - challengeon 06-03-2021 CO2 [Moles/Vol] 24.0 mmol/L 21.0-32.0 [facility] Work Phone: Urea nitrogen/Creatinine [Mass ratio] 15.5 mg/mg 10-20 [facility] Work Phone: Laboratory - Hematology and Cell countson 06-03-2021 Erythrocyte distribution width (RBC) [Entitic vol] 41.7 fL 35.1-43.9 [facility] Work Phone: Erythrocyte distribution width (RBC) [Ratio] 12.9 % 11.6-14.6 [facility] Work Phone: Immature granulocytes/100 WBC (Bld) 1.500 % 0.0-0.9 [facility] Work Phone: Comment on above: IG% - Immature Granu locytes (promyelocytes, myelocytes and metamyelocytes) > 1% indicates that a LEFT SHIFT is Present. MCH (RBC) [Entitic mass] 29.3 pg 27.0-32.0 [facility] Work Phone: Nucleated RBC/100 WBC (Bld) [Ratio] 0 % 0-5 [facility] Work Phone: MCHC Auto (RBC) [Mass/Vol]on 06-03-2021 MCHC (RBC) [Mass/Vol] 33.3 g/dL 32-36 [facility] Work Phone: No Panel Informationon 06-03 Estimated Creatinine Clearance Calc 49.13 ml/min [facility] Work Phone: Estimated GFR (MDRD) Amer 67 mL/min >60 [facility] Work Phone: Comment on above: GFR Calc Estimated GFR (MDRD) Non-Af Amer 55 mL/min >60 [facility] Work Phone: Comment on above: Non- GFR Calc Platelets bldon 06-03-2021 Platelets (Bld) [#/Vol] 198 10*3/uL 150-450 [facility] Work Phone: Serum or plasma calcium thi urement (mass/volume)on 06-03-2021 Calcium [Mass/Vol] 9.9 mg/dL 8.5-10.1 [facility] Work Phone: Serum or plasma creatinine m easurement (mass/volume)on 06-03-2021 Creatinine [Mass/Vol] 1.16 mg/dL 0.55-1.02 [facility] Work Phone: Comment on above: The validity of the calculated GFR & GFRAA in patients over 70 years has not been determined. Clinical correlation is essential. Serum or plasma urea nitroge n measurement (mass/volume)on 06-03-2021 Urea nitrogen [Mass/Vol] 18 mg/dL 7-18 [facility] Work Phone: Thin prep Papanicolaou smear with manual screeningon 06-03-2021 Thin prep Papanicolaou smear with manual screening 10 5-15 [facility] Work Phone: LABORATORYOrdered By: Wilbur Blunt on 04-28-2021 Appearance (U) Cloudy *ABN* [...] ED NOTEon 12-26-2017 ED NOTE HNO ID: [id number] Author: Kati (Rn) VERNON Be Service: Emergency Medicine Author Type: Registered Nurse Type: ED Notes Filed: 12/26/2017 12:27 PM Note Text: Pt given icepack . Aware up for d/c . Aware waiting on paperwork Normal [facility] ED NOTE HNO ID: [id number] Author: Kati Hinojosa) VERNON Be Service: Emergency Medicine Author Type: Registered Nurse Type: ED Notes Filed: 12/26/2017 11:34 AM Note Text: Visitor at bedside. Normal [facility] ED PROV NOTEon 12-26-2017 Protein mass conc HNO ID: [id number]: NIKKO Greerervice: Emergency MedicineAuthor Type: PhysicianType: ED [...] condition.Annamaria Chaudhary MD12/26/17 1217 Normal [facility] Protein mass conc HNO ID: [id number]: NIKKO Greerervice: Emergency MedicineAuthor Type: PhysicianType: ED Provider NotesFiled: 12/27/2017 3:55 PMNote Text:ED Provider NotePatient Name: Debby BailonMRN: [id number] DATE: 12/26/17HistoryPatient presents with:Abdominal Pain: pt had [...] disease), thoracic- Dysthymic disorder Depression (non-psychotic), sees 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 Insomnia- Lipomeningocele, sacral level 09/12/2013- Lumbago 02/12/2015- Migraine- Miscarriage- Morbid obesity (HCC) 02/12/2015- Muscle weakness of left lower extremity 08/07/2013- Neck pain 05/02/2013- Neurogenic bladder 02/12/2015- Neurogenic bladder- Neurogenic bowel 01/06/2016- Neuropathy ([facility]) 02/12/2015 post back surgery with secondary infection. Seeing Dr. Gregg- Numbness and tingling of left arm and leg 08/07/2013- Panic attacks- Recurrent UTI 11/28/2011- Spina bifida ([facility]) 01/06/2016- Type 2 diabetes mellitus without complication ([facility]) 02/12/2015- Urinary tract infection, site not specified [...] was discharged in stable condition.SIGNATURE: Perla Carter Res, WLEuffaobb87/01/18 1526Attending NoteI evaluated the patient and personally participated in the peters components. I agree with the resident's findings and plan as documented and havediscussed the case and management of the patient's care with the resident.Signature: Annamaria Chaudhary, MDDate: 12/27/2017Time: 3:55 PMCarol Nayely Chaudhary MD12/27/17 1555 [facility] ANES Halie 12-12-2017 ANES POST HNO ID: [id number]: Javier Charleservice: AnesthesiologyAuthor Type: PhysicianType: Anesthesia PostOpFiled: 12/12/2017 12:02 AMNote Text:POST ANESTHESIA EVALUATION NOTESERVICE DATE: 12/12/2017SERVICE TIME: 12:02 AMDOB: 1980Vitals: 12/11/1818Temp: 36 ?C (96.8 ?F) 37 ?C (98.6 ?F) 12/12/1819BP: 124/64 117/71 120/63 114/63 12/12/1819Pulse: (!) 55 64 66 77 12/12/1819Resp: 14 20 23 18 07/16/631741 07/16/556595 07/16/077148 07/16/625422RgN2: 97% 98% 97% 100%Validated Vital Signs: YesPOST [...] 2017 : 12:02 AM PAGER/CONTACT #: [phone] [facility] HNO ID: [id number]: Naty Campos) Lucye: General SurgeryAutholamar Type: Nurse PractitionerType: Discharge SummariesFiled: 12/12/2017 3:19 PMNote Text:DISCHARGE SUMMARYPATIENT NAME: Debby BailonMRN: [id number] Information Admission Information ADMIT DATE: 12/11/2017DISCHARGE DATE: 12/12/2017[facility] Doctor: [...] medication (see prescription) You should use an yakq-lvj-ohwpivr stool softener (Docusate sodium)and/or a fiber supplement [...] Patient/Parents to call for appointment?: Yes Daniel [phone] [address] PCP Requested ReferralAdditional Provider to Provider Information:No notes on fileFOLLOW-UP APPOINTMENTS ALREADY SCHEDULED WITH A [facility] PROVIDER:Future AppointmentsDate Time Provider Department Czxjcu1102/28/2018 5:40 PM Will NUNEZ [facility]: Current Discharge Medication ListSTART taking [...] status migrainosus,not intractable; Paroxysmal SVT (supraventricular tachycardia) ([facility])DULoxetine (CYMBALTA) 30 mgTake 30 mg by mouth once daily.Qty: 30 capsule Refills: 5metFORMIN ER (GLUCOPHAGE XR) 1,000 mgTake 1,000 mg by mouth twice daily.Qty: 120 tablet Refills: 5Associated Diagnoses:Type 2 diabetes mellitus without complication,without long-term current use of insulin ([facility])lisinopril 2.5 mgTake 2.5 mg by mouth once daily.Qty: 30 tablet Refills: 11Associated Diagnoses:Type 2 diabetes mellitus with albuminuria ([facility])oxybutynin ER (DITROPAN XL) 10 mgTake 10 mg [...] as directed, ulcer of left 1st metatarsal, measurement:[id number], Dx: E11.621, L97.522Qty: 1 Package Refills: 3Associated Diagnoses:Other diabetic neurological complication associatedwith type 2 diabetes mellitus (HCC); Toe amputation status, left (HCC);Diabetic ulcer of toe of left foot associated with type 2 diabetesmellitus, with fat layer exposed (HCC)hydrOXYzine pamoate (VISTARIL) 25 mgTake 25 mg by mouth three times daily as needed. Per Counseling CenterRefills: 0!! - Potential duplicate medications found. Please discuss with provider.TIME OF CARE: Discharge Management: I personally spent greater than 30minutes involved in the discharge management of this patient.SIGNATURE: Naty Araiza APRN.DIRECTOR LABOR STANDARDS PAGER/CONTACT #: [phone]: December 12, 2017TIME: 3:18 PM Normal [facility] Glucose Meteron 12-12-2017 Glucose mass conc 186 mg/dL High 70-99 [facility] Comment on above: Result Comment: RN N OTIFIED Performed By: #### G LMET ####[place] [address] NURSING PROGon 12-12-2017 Protein mass conc HNO ID: [id number] Author: Margarita ValdezRn) VERNON Blunt Service: Nursing Author Type: Registered Nurse Type: Nursing Progress Note Filed: 12/12/2017 2:28 PM Note Text: 1425 Transferred on bed to [address] [place] [address] Protein mass conc HNO ID: [id number] Author: Margarita ValdezRn) VERNON Blunt Service: Nursing Author Type: Registered Nurse Type: Nursing Progress Note Filed: 12/12/2017 2:20 PM Note Text: 1330 Report called to Elena Medina for [address] [place] [address] Room not ready [facility] Protein mass conc HNO ID: [id number] Author: Kimberley ValdezRn) Josafat RN Service: Nursing Author Type: Registered Nurse Type: Nursing Progress Note Filed: 12/12/2017 6:36 AM Note Text: Dr Briceno by to see pt, informed of unable to obtain blood specimen this morning. Normal [facility] Protein mass conc HNO ID: [id number] Author: Kimberley ValdezRn) Josafat RN Service: Nursing Author Type: Registered Nurse Type: Nursing Progress Note Filed: 12/12/2017 6:16 AM Note Text: Unsuccessful blood draw attempts by 2 RN's twice each. Pt tolerated well. Normal [facility] PROGRESSon 12-12-2017 Protein mass conc HNO ID: [id number]: Pérez (Siena) CrispService: General SurgeryAuthor Type: ResidentType: Progress NotesFiled: 12/12/2017 9:23 AMNote Text: Attestation signed by Daniel Bella at 12/12/2017 10:14 AMAttending NoteI personally saw and examined the patient. I reviewed the resident's note. Juan Luisee with the resident's assessment and plan with the following revisionsand/or additions: dc home today if pain controlledSignature: Daniel Bella, MDDate: 12/12/2017Time: 10:14 AM General Surgery Progress NoteSERVICE DATE: 12/12/2017SUBJECTIVE:TA Moreno POD#1 s/p lap hernia repair. Only tried [...] 43.35 kg/m?O2 Therapy: Nasal CannulaIANDO:Date 12/11/17699 - 12/12/1765812/12/17699 - 12/13/17 0659Shift 6034-8539 2333-5127 6778-3452 24 Hour Total 8287-2449 [id number] 24 Hour TotalINTAKE IV 1200 1200 OR [...] with PO meds- ambulate/IS- possible d/c this afternoonElective General Surgery Service Pager:For questions or concerns Mon-Fri 6a-5p please page [phone].After 5pm and on Weekends and Holidays, please page [phone] if in ICU or [phone] on RNF.SIGNATURE: Pérez Briceno MD PATIENT NAME: Debby BailonDATE: December 12, 2017 : 6:13 AM Pager: above Normal [facility] ANES PREOPon 12-11-2017 ANES PREOP HNO ID: [id number]: Celine DeweyioService: AnesthesiologyAuthor Type: PhysicianType: Anesthesia PreOpFiled: [...] results:Hematocrit 39.6 08/04/2017Potassium 4.2 10/10/2017ANES DOS/PREOP NOTE:Vitals: 294142XP: 128/69Pulse: 63Resp: 16Temp: 36 ?C (96.8 ?F)TempSrc: Temporal ArterySpO2: 100%Weight: 107.5 kg (237 lb)Height: 157.5 cm (5' 2)ACTIVE PROBLEM LISTCyst of OvaryAnxietyRecurrent UtiDysthymic DisorderPanic AttacksNeck PainCervical RadiculopathyWeakness of Both Upper ExtremitiesMuscle Weakness of Lower ExtremityNumbness and Tingling of Left Arm and LegLipomeningocele (Hcc)LumbagoNeuropathy ([facility])Morbid Obesity ([facility])Chronic PainNeurogenic BladderHydronephrosis, RightHistory of Kidney StonesSpina Bifida ([facility])Neurogenic BowelPrimary InsomniaType 2 Diabetes Mellitus With Proteinuria ([facility])PyelonephritisDiabe tic Eye Exam ([facility])Migraine Without Aura and Without Status Migrainosus, Not IntractableType 2 Diabetes Mellitus With Albuminuria ([facility])Well Adult ExamUlcer of Left Foot ([facility])Paroxysmal Svt (Supraventricular Tachycardia) ([facility])Dm (Diabetes Mellitus), Secondary, Uncontrolled, W/Renal Complications([facility])PAST MEDICAL HISTORYDiagnosis Date- Abnormal sensation of left upper and lower extremity 08/07/2013- Anxiety- Arthritis started age 19- Cervical radiculopathy 05/02/2013- Chronic pain 02/12/2015- Depressive disorder, not elsewhere classified 11/28/2011 [facility]- DJD (degenerative joint disease), thoracic- Dysthymic disorder Depression (non-psychotic), sees SURVEYOR'S 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- Insomnia- Lipomeningocele, sacral level 09/12/2013- Lumbago [...] as directed, ulcer of left 1stmetatarsal, measurement: [id number], Dx: E11.621, L97.522 (Patient nottaking: Reported on 10/05/2017)hydrOXYzine pamoate (VISTARIL) 25 mg capsule Take 1 capsule by mouth threetimes daily as needed. Per [facility] CenterCurrent Facility-Administered Medications:lidocaine 10 mg/mL (1 %) 1-2 mg injection (XYLOCAINE) 0.1-0.2 mLINTRADERMAL PRN Noaman Alilactated ringers infusion 5-30 mL/hr INTRAVENOUS CONTINUOUS Noaman AliceFAZolin 3 g in D5W 100 mL (ANCEF) 3 g INTRAVENOUS Pre-Op Once Noaman AliAllergies:ALLERGIESAl lergen Reactions- Mushroom Anaphylaxis- Peanuts Anaphylaxis- Mri [...] obtained within 48 hours ofSurgery/Procedure.SIGN ATURE: Celine Alfred MD PATIENT NAME: Debby BailonDATE: December 11, 2017 : 1:13 PM CSN: [id number] [facility] BRIEF OP NOTon 12-11-2017 BRIEF OP NOT HNO ID: [id number]: Pérez Kaurervice: General SurgeryAuthor Type: ResidentType: Brief Op NoteFiled: 12/11/2017 6:54 PMNote Text:BRIEF OPERATIVE / PROCEDURE NOTELOG ID: [id number]/PROCEDURE DATE: 12/11/2017INCISION/PROCED URE START TIME: 5:23 PMINCISION CLOSE/PROCEDURE END TIME: 6:51 PMSURGEON(S)/PROCEDURALI ST(S) AND SUPPLY CHAIN INTERN(S):Surgeon(s) and Role: * Daniel Bella - Primary [...] 2017 : 6:53 PM PAGER/CONTACT #: [phone] [facility] NURSING PROGon 12-11-2017 Protein mass conc HNO ID: [id number] Author: Hilda ValdezRn) VERNON Gonazlez Service: Nursing Author Type: Registered Nurse Type: Nursing Progress Note Filed: 12/11/2017 5:39 PM Note Text: Family updated [facility] OPERATIVE NOon 12-11-2017 OPERATIVE NO HNO ID: [id number]: Pérez Kaurervice: General SurgeryAuthor Type: ResidentType: Operative ReportFiled: 12/12/2017 12:06 PMNote Text: Attestation signed by Daniel Bella at 12/12/2017 3:32 PMI was present for the critical portions of the procedure and was immediatelyavailable to provide assistance. I agree with the residents operativedictation.Sung Bella MDJukrishna 2017 3:32 PM OPERATIVE/PROC EDURE REPORTLOG ID: [id number]/PROCEDURE DATE: 12/11/2017INCISION/PROCED URE START TIME: 5:23 PMINCISION CLOSE/PROCEDURE END TIME: 6:51 PMSURGEON(S)/PROCEDURALI ST(S) AND SUPPLY CHAIN INTERN(S):Surgeon(s) and Role: * Daniel Bella - Primary [...] 11:39 AM PAGER/CONTACT #: Normal [facility] Urine HCG, Qual.on 8 HCG.beta subunit ( test) Ql (U) Negative Normal Negative [facility] Comment on above: Performed By: #### H CGUR ####[address] [address] Specific [place], Ur 1.013 Normal 1.005-1 .03 0 [facility] Comment on above: Performed By: #### H CGUR ####[address] [address] HISTORY PHYSICALon 8 HISTORY PHYSICAL HNO ID: [id number]: Stacey (Hot Metal Charger) BelopotoskyService: (none)Author Type: Nurse PractitionerType: HANDPFiled: 12/01/2017 11:21 AMNote Text: HISTORY AND PHYSICAL EXAMINATIONSERVICE DATE: 12/01/2017SERVICE TIME: 1120[facility]: RADHA Sinha FOR VISIT:Debby [...] Mellitus With Proteinuria (Hcc)PyelonephritisDiabe tic Eye Exam ([facility])Migraine Without Aura and Without Status Migrainosus, Not IntractableType 2 Diabetes Mellitus With Albuminuria ([facility])Well Adult ExamUlcer of Left Foot ([facility])Paroxysmal Svt (Supraventricular Tachycardia) ([facility])SubjectiveCHIEF COMPLAINT: Ventral hernia without obstruction or gangreneHPI: Ms. Bailon is a 37 year old female present in presurgical testing.She states she found the hernia in september 2017. [facility] and cat scan and found it. States the [place]. [place] [facility] because the type of thestoma she has. [...] disease), thoracic- Dysthymic disorder Depression (non-psychotic), sees SURVEYOR'S 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- Insomnia- Lipomeningocele, sacral level 09/12/2013- Lumbago 02/12/2015- Migraine- Miscarriage- Morbid obesity (HCC) 02/12/2015- Muscle weakness of left lower extremity 08/07/2013- Neck pain 05/02/2013- Neurogenic bladder 02/12/2015- Neurogenic bladder- Neurogenic bowel 01/06/2016- Neuropathy ([facility]) 02/12/2015 post back surgery with secondary infection. Seeing Dr. 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 denies [...] compliance.SIGNATURE: Stacey Rao APRN.CNP PATIENT NAME: Debby BailonDATE: December 01, 2017 : 11:03 AM PAGER/CONTACT #: [facility] HOSPon 11-09-2017 HOSP Patient:Nguyen Bailon LMRN: [...] insomnia [F51.01]Type 2 diabetes mellitus with proteinuria ([facility]) [E11.29, R80.9]Pyelonephritis [N12]Diabetic eye exam ([facility]) [Z01.00, E11.9]Migraine without aura and without status migrainosus, not intractable [G43.009]Type 2 diabetes mellitus with albuminuria ([facility]) [E11.29, R80.9]Well adult exam [Z00.00]Ulcer of left foot ([facility]) [L97.529]Paroxysmal SVT (supraventricular tachycardia) ([facility]) [I47.1]DM (diabetes mellitus), secondary, uncontrolled, w/renal complications ([facility])[E13.29, E13.65]Allergies:Mushroo mPeanutsMri Contrast [Gadolinium-Containing Contrast Media]Date Verified: 12/11/17Lab ValuesNo results within the last 30 days for the following basenames: K,HCTProgress Notes ([facility]):Yin Uribe LPN 12/05/2017 10:06 AM SignedPt [...] [facility] to ask for letter for dental chair assembler pet asadvised by pcp. She was told that her pcp has to do that. Now pt is confused.Yin Uribe TOOjohn paul Kay EVELIN 12/05/2017 3:12 PM SignedPatient calling to check status of request. Patient said she tests twice dailyfor her meter.Will Brannon MD 12/05/2017 3:52 PM [facility]igned[facility] the [facility] and discuss with them that the patient calledrequesting a letter for a dental chair assembler pet. patient sees them for her Anxiety [...] Ma 12/05/2017 4:02 PM SignedFaxed rx to drugmartLe detailed message on Dr. Coates Voicemail at counseling centerPatient advised pcp does not give letters for this and [facility]/panic attacks. Patient is aware that message lefton Dr. Coates voicemail requesting if staff can contact patient if letter is fitmedical necessityChasidy Kay CURATOR [employer] 12/05/2017 5:02 PM [facility] calling said do not carry stoma catheter and not sure wherepatient will be able to get it from. Phoned patient and let her know pharmacydoes not carry stoma catheter and she said she will [facility] [place]. Normal [facility] Progress Noteon 11-07-2017 Molder Pipe Covering Authentication Interface Message Text Debby Bailon is here for consultation at the request of Will Brannon MDfor: Urologic Problem (Dining Room Supervisor Discuss Bowles Stoma surgery)History of Presenting Problem:Patient referred by Dr. Bella for problems with her Bowles Stoma. Had Malonestoma made by Dr. Diaz in 2015 here at [facility]. She developed anumbilical hernia and Dr. Bella would like to fix it and have the stoma relocated.She reports that her bowles stoma has not been working since July or August (wasused to used 1500 cc). Water started leaking out.No urologic history with our practiceHas had multiple febrile utis. Performs CIC through via urethra. Patientreports prior visits with Dr. Sears at [facility]. She would like to continue seeingher. Also has urinary incontinence between caths but only caths 3 times a day.Past Medical History:Past Medical History:Diagnosis Date Anxiety Arthritis Depression Diabetes mellitus type 2 in obese Neurogenic bladder Spina bifida Umbilical herniaPast Surgical History:Procedure Laterality Date LAPAROTOMY N/A 08/14/2015 LAPAROTOMY, BOWEL antegrade continence enema (Bowles) stoma performed by MD Emili at [facility] ORAllergies:AllergiesAll ergen Reactions Mushroom Extract Complex Swelling [...] doing nothing. [facility]coordinate [facility]. [facility].Recommended follow up with Dr. Farhat Sears, an adult urologist at [facility] forongoing urologic issues. In the mean time, recommended increasing CIC to every2 to 3 hours.Would not relocate the stoma since her abdominal wall is thick. Explained thestoma limb may not reach through her abdominal wall. Will discuss further withDr. Inman recommended GI consultation regarding abdominal pain and bowel regimen.Yoandy Kelly 2017 [facility] Office Visit (AGGENS1) DEBBY MONTEZ ([id number]) 1980 [facility] Time Provider Department10/17/17 3:00 PM DANIEL BELLA AGGENS1 During your visit today, we recorded the following information about you: Pulse Blood pressure Weight Height 73/minute 130/82 110 kg 1.575 Yeni Bella MD 10/17/2017 4:47 PM SignedPatient referred by:Fawn Herrera MD[address] [place] [address]CDC: This is a new patient consult from Dr. Herrera. 36-year-old female with ahistory of spina bifida and neurogenic bladder. [facility]. She has developed [...] disease), thoracic- Dysthymic disorder Depression (non-psychotic), sees SURVEYOR'S 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- Insomnia- Lipomeningocele, sacral level 09/12/2013- Lumbago 02/12/2015- Migraine- Miscarriage- Morbid obesity (HCC) 02/12/2015- Muscle weakness of left lower extremity 08/07/2013- Neck pain 05/02/2013- Neurogenic bladder 02/12/2015- Neurogenic bladder- Neurogenic bowel 01/06/2016- Neuropathy ([facility]) 02/12/2015 post back surgery with secondary infection. Seeing Dr. Grgeg- Numbness and tingling of left arm and leg 08/07/2013- Panic attacks- Recurrent UTI 11/28/2011- Spina bifida (HCC) 01/06/2016- Type 2 diabetes mellitus without complication ([facility]) 02/12/2015- Urinary tract infection, site not specified [...] Number of children: 0Occupational HistoryOccupation Employer CommentSTA[employer] [facility], 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Social History [...] mouth twice daily.lancets (FREESTYLE LANCETS) 28 gauge misc Test blood sugar(s) 1-2 times daily.Dx: 250.0. [...] as directed, ulcer of left 1stmetatarsal, measurement: [id number], Dx: E11.621, L97.522 (Patient not taking:Reported on [...] TO [facility]INE UROLOGYNYennifer Cottrell Provider: FAWN HERRERA [[id number]]Allergies As of Date: 10/17/2017 Noted Allergy ReactionMRI CONTRAST (GADOLINIUM-CONTAINI*12/2016 8 - GI UpsetMUSHROOM 06/10/2016 10 - AnaphylaxisPEANUTS 06/10/2016 10 - AnaphylaxisDate Reviewed: 10/17/2017Reviewed by: Daniel Bella - Fully AssessedReason for Visit: New Patient [172]Primary Visit Diagnosis:Incisional hernia with obstruction but no gangrene [K43.0]Order(s):CONSULT TO [facility] [[id number]] Order #: [id number]: 1Prescriptions as of 10/17/2017 Sig: POLYETHYLENE GLYCOL [...] A Type 2 diabetes mellitus with albuminuria ([facility])*INVALID FOR* Priority: A Well adult exam [Z00.00] INVALID FOR* Priority: E More... Ulcer of left foot ([facility]) [L97.529] INVALID FOR* Priority: M Paroxysmal SVT (supraventricular tachycardia) (*INVALID FOR* Priority: A More... Status:Closed by DANIEL BELLA MD on 10/17/17 Normal [facility] PROGRESSon 10-17-2017 Protein mass conc HNO ID: [id number]: Daniel Pedroza: (none)Author Type: PhysicianType: Progress NotesFiled: 10/17/2017 4:47 PMNote Text:Patient referred by:Fawn Herrera MD[address] [facility] [facility] [address]MIF: This is a new patient consult from Dr. Herrera. 36-year-old female witha history of spina bifida and neurogenic bladder. She underwent a mazeprocedure at [facility] for constipation. She has developed pain atthe [...] disease), thoracic- Dysthymic disorder Depression (non-psychotic), sees SUR[facility]YOR'S 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- Insomnia- Lipomeningocele, sacral level 09/12/2013- Lumbago [...] 01/06/2016- Type 2 diabetes mellitus without complication ([facility]) 02/12/2015- Urinary tract infection, site not specified [...] Number of children: 0Occupational HistoryOccupation Employer CommentSTA[employer] [facility], 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Social History [...] mouth twice daily.lancets (FREESTYLE LANCETS) 28 gauge misc Test blood [...] as directed, ulcer of left 1stmetatarsal, measurement: [id number], Dx: E11.621, L97.522 (Patient nottaking: Reported on [...] urology for combined effort.- CONSULT TO KATHARINE Bella MD Normal [facility] Basic Metabolic Panelon 07-0 Glucose mass conc 183 mg/dL High 70-105 [facility] Comment on above: Order Comment: CBN Performed By: #### B MP ####[place] [id number] BUN/Creatinine Ratio 8 mg/mg Normal 7-27 On license of [facility] Comment on above: Order Comment: CBN Performed By: #### B MP ####[place] [id number] CO2 23 mmol/L Normal 22-29 [facility] Comment on above: Order Comment: CBN Performed By: #### B MP ####[place] [id number] Creatinine 1.2 mg/dL Normal 0.6-1.2 [facility] Comment on above: Order Comment: CBN Performed By: #### B MP ####[place] [id number] Electrolyte Balance 13.0 mEq/L Normal [facility] Comment on above: Order Comment: CBN Performed By: #### B MP ####[address] [address] Calcium 9.8 mg/dL Normal 8.4-10.2 [facility] Comment on above: Order Comment: CBN Performed By: #### B MP ####[address] [address] Urea nitrogen 10 mg/dL Normal 7-18 [facility] Comment on above: Order Comment: CBN Performed By: #### B MP ####[address] [address] Chloride 105 mmol/L Normal 98-107 [facility] Comment on above: Order Comment: CBN Performed By: #### B MP ####[address] [address] Potassium molar conc 3.7 mmol/L Normal 3.5-5.1 On license of [facility] Comment on above: Order Comment: CBN Performed By: #### B MP ####[address] [address] Sodium 141 mmol/L Normal 136-146 [facility] Comment on above: Order Comment: CBN Performed By: #### B MP ####[address] [address] CBC (AO)on 11-27-2016 Basophils Auto #/vol (Bld) 0.20 10 3/mcL High 0.00-0.19 [facility] Comment on above: Order Comment: CBN Performed By: #### C BCO ####[address] [address] Basophils/100 WBC Auto (Bld) 1.2 % Normal 0.0-2.5 [facility] Comment on above: Order Comment: CBN Performed By: #### C BCO ####[address] [address] Eosinophils 0.30 10 3/mcL Normal 0.00-0.40 [facility] Comment on above: Order Comment: CBN Performed By: #### C BCO ####[address] [address] Eosinophils/100 leukocytes 2.4 % Normal 0.0-7.0 [facility] Comment on above: Order Comment: CBN Performed By: #### C BCO ####[place] [id number] Erythrocyte distribution width Auto Ratio (RBC) 14.2 % Normal 11.5-14.5 [facility] Comment on above: Order Comment: CBN Performed By: #### C BCO ####[place] [id number] Erythrocytes (RBC) 4.44 10 6/mcL Normal 4.20-5.40 [facility] Comment on above: Order Comment: CBN Performed By: #### C BCO ####[address] [address] Hematocrit (HCT) 38.1 % Normal 37.0-47.0 [facility] Comment on above: Order Comment: CBN Performed By: #### C BCO ####[address] [address] Hemoglobin mass conc (Bld) 12.7 G/dL Normal 12.0-16.0 [facility] Comment on above: Order Comment: CBN Performed By: #### C BCO ####[address] [address] Lymphocytes 4.10 10 3/mcL High 0.77-3.85 [facility] Comment on above: Order Comment: CBN Performed By: #### C BCO ####[place] [address] Lymphocytes/100 leukocytes 29.9 % Normal 10.0-50.0 [facility] Comment on above: Order Comment: CBN Performed By: #### C BCO ####[address] [address] MCH 28.5 pg Normal 27.0-31.2 [facility] Comment on above: Order Comment: CBN Performed By: #### C BCO ####[address] [address] MCHC mass conc (RBC) 33.3 G/dL Normal 33.0-37.0 On license of [facility] Comment on above: Order Comment: CBN Performed By: #### C BCO ####[address] [address] MCV 85.8 fL Normal 80.0-94.0 [facility] Comment on above: Order Comment: CBN Performed By: #### C BCO ####[address] [address] Monocytes 1.30 10 3/mcL High 0.15-1.00 [facility] Comment on above: Order Comment: CBN Performed By: #### C BCO ####[address] [address] Monocytes/100 leukocytes 9.3 % Normal 1.7-13.0 [facility] Comment on above: Order Comment: CBN Performed By: #### C BCO ####[address] [address] Neutrophils 7.90 10 3/mcL High 2.85-6.16 [facility] Comment on above: Order Comment: CBN Performed By: #### C BCO ####[address] [address] Neutrophils/100 WBC Auto (Bld) 57.2 % Normal 37.0-80.0 [facility] Comment on above: Order Comment: CBN Performed By: #### C BCO ####[address] [address] Platelet mean volume (PMV) 9.7 fL Normal 7.4-10.4 [facility] Comment on above: Order Comment: CBN Performed By: #### C BCO ####[address] [address] Platelets 224 10 3/mcL Normal 130-400 [facility] Comment on above: Order Comment: CBN Performed By: #### C BCO ####[place] [id number] WBC (Leukocytes) 13.90 10 3/mcL High 4.60-10.80 On license of [facility] Comment on above: Order Comment: CBN Performed By: #### C BCO ####[address] [address] [address] ABDOMEN/PELVIS W/O CONTRA STon 11-27-2016 CT [...] without signs of complication. Interpreted By: Oc Maereliminary Report By: Oc Mae MDElectronically Signed By: Oc Mae MD Dictated Date: 11/27/2016 2:13:41 AM Prelim Date: 11/27/2016 2:13:41 AM Sign Date: 11/27/2016 2:20:29 AM Normal [facility] Glomerular Filtration Rate E stimateon 11-27-2016 eGFR (non-black) mL/min/{1.73_m2} Normal [facility] Comment on above: Order Comment: CBN Result Comment: Fawadalexander gurpreet mean GFR = 107 mL/min/1.73 sq.m. for ages 30-39 years. Chronic Kidney Disease: Less than 60 mL/min/1.73 square metersEnd Stage Renal Disease: Less than 15 mL/min/1.73 square meters Performed By: #### G FR ####[address] [address] eGFR (non-black) 51 mL/min/1.73m 2 Normal A [facility] Comment on above: Order Comment: CBN Performed By: #### G FR ####[address] [address] [place] [facility] Note on 11-27-2016 [facility] Note Normal [facility] Patient Summary Documentson 11-27-2016 Patient Summary Documents Normal [facility] test (u)on 017 test (u) Negative Normal [facility] Comment on above: Order Comment: CBN Result Comment: HCG not detected. Performed By: #### P REGU ####[place] [id number] Urinalysis (AO)on 11-27-2016 Ca Oxalate Crystals TRACE Normal [facility] Comment on above: Order Comment: CBN Performed By: #### U AO ####[place] [id number] Erythrocytes (RBC) 5-10 Abnormal NONE SEEN [facility] Comment on above: Order Comment: CBN Performed By: #### U AO ####[place] [address] Squamous Epi 0-5 Abnormal NONE SEEN [facility] Comment on above: Order Comment: CBN Performed By: #### U AO ####[place] [id number] Urine, bacteria in sediment TRACE Abnormal NEGATIVE [facility] Comment on above: Order Comment: CBN Performed By: #### U AO ####[place] [id number] WBC (Leukocytes) 5-10 Abnormal NONE SEEN [facility] Comment on above: Order Comment: CBN Performed By: #### U AO ####[place] [id number] Bilirubin (total) Negative Normal NEGATIVE [facility] Comment on above: Order Comment: CBN Performed By: #### U AO ####[place] [id number] Glucose mass conc 100 mg/dL Abnormal NEGATIVE [facility] Comment on above: Order Comment: CBN Performed By: #### U AO ####[place] [id number] Hemoglobin mass conc (Bld) SMALL Abnormal NEG - TRACE [facility] Comment on above: Order Comment: CBN Performed By: #### U AO ####[address] [address] pH of blood 6.0 [pH] Normal 5.0 - 8.0 [facility] [facility] Comment on above: Order Comment: CBN Performed By: #### U AO ####[place] [address] Protein 30 mg/dL Abnormal NEG - TRACE [facility] Comment on above: Order Comment: CBN Performed By: #### U AO ####[place] [id number] Urine, appearance CLEAR Normal CLEAR [facility] Comment on above: Order Comment: CBN Performed By: #### U AO ####[place] [address] Urine, color YELLOW Normal [facility] Comment on above: Order Comment: CBN Performed By: #### U AO ####[place] [address] Urine, ketones presence Negative Normal NEGATIVE A [facility] Comment on above: Order Comment: CBN Performed By: #### U AO ####[place] [address] Urine, nitrite presence Negative Normal NEGATIVE A [facility] Comment on above: Order Comment: CBN Performed By: #### U AO ####[place] [address] Urine, specific gravity >=1.030 Abnormal 1.01 5-1.02 5 [facility] Comment on above: Order Comment: CBN Performed By: #### U AO ####[place] [address] Urine, urobilinogen 0.2 {Donato'U}/dL Normal NORMAL [facility] Comment on above: Order Comment: CBN Performed By: #### U AO ####[place] [address] [address] WBC (Leukocytes) TRACE Abnormal NEGATIVE [facility] Comment on above: Order Comment: CBN Performed By: #### U AO ####[place] [address] [address] Specimen type (u) VOID Normal [facility] Comment on above: Order Comment: CBN Performed By: #### U AO ####[place] [address] [address] Bacteria identified Cx Nom ( Wound) Wound Culture Streptococcus agalac tiae (B) [facility] Work Phone: Culture, urine Bacteria identified Cx Nom (U) Serratia rubidaea [facility] Work Phone: Bacteria identified Cx Nom (U) Stenotrophomonas maltophilia [facility] Work Phone: Bacteria identified Cx Nom (U) Atopobium vaginae [facility] Work Phone: Bacteria identified Cx Nom (U) Streptococcus agalactiae (B) [facility] Work Phone: Bacteria identified Cx Nom (U) Staphylococcus epidermidis [facility] Work Phone: Bacteria identified Cx Nom (U) Pseudomonas putida [facility] Work Phone: Bacteria identified Cx Nom (U) Staphylococcus aureus [facility] Work Phone: Bacteria identified Cx Nom (U) Staphylococcus haemolyticus [facility] Work Phone: Gram stain for investigation of transfusion reaction Microscopic observation Gram stain Nom (Unsp spec) [facility] Work Phone: Laboratory - Microbiology an d Antimicrobial susceptibility Bacteria identified Cx Nom (Bld) No growth in 5 days. [facility] Work Phone: Vital Signs Date Time Vital Sign Value Performing Clinician Facility 04-06-2025 18:26-0500 Diastolic Blood Pressure Non-Invasive 83 mm[Hg] DR SUSAN LEON MD [facility] 04-06-2025 18:26-0500 Heart rate 71 /min DR SUSAN LEON MD [facility] 04-06-2025 18:26-0500 Respiratory rate 16 /min DR SUSAN LEON MD [facility] 04-06-2025 18:26-0500 Systolic Blood Pressure Non-Invasive 121 mm[Hg] DR SUSAN LEON MD [facility] 04-06-2025 17:09-0500 Diastolic Blood Pressure Non-Invasive 70 mm[Hg] DR SUSAN LEON MD [facility] 04-06-2025 17:09-0500 Heart rate 66 /min DR SUSAN LEON MD [facility] 04-06-2025 17:09-0500 Respiratory rate 16 /min DR SUSAN LEON MD [facility] 04-06-2025 17:09-0500 Systolic Blood Pressure Non-Invasive 127 mm[Hg] DR SUSAN LEON MD [facility] 04-06-2025 15:41-0500 Body temperature 97.88 [degF] DR SUSAN LEON MD [facility] 04-06-2025 15:41-0500 Diastolic Blood Pressure Non-Invasive 79 mm[Hg] DR SUSAN LEON MD [facility] 04-06-2025 15:41-0500 Heart rate 76 /min DR SUSAN LEON MD [facility] 04-06-2025 15:41-0500 Respiratory rate 16 /min DR SUSAN LEON MD [facility] 04-06-2025 15:41-0500 Systolic Blood Pressure Non-Invasive 130 mm[Hg] DR SUSAN LEON MD [facility] 03-09-2025 04:16-0400 Body temperature 98.2 [degF] Dr. Will Brannon MD Work Phone: 3(950)182-400837 [place] [address] 03-09-2025 04:16-0400 Diastolic blood pressure 77 mm[Hg] Dr. Will Brannon MD Work Phone: 9(794)089-590042 [place] [address] 03-09-2025 04:16-0400 Heart rate 76 /min Dr. Will Brannon MD Work Phone: 6(383)507-634342 [place] [address] 03-09-2025 04:16-0400 Respiratory rate 18 /min Dr. Will Brannon MD Work Phone: 8(029)992-274342 [place] [address] 03-09-2025 04:16-0400 SaO2% (BldA) [Mass fraction] 99 % Dr. Will Brannon MD Work Phone: 1(204)340-831342 [place] [address] 03-09-2025 04:16-0400 Systolic blood pressure 144 mm[Hg] Dr. Will Brannon MD Work Phone: 3(041)407-151542 [place] [address] 03-09-2025 02:51-0400 Body height 154.[address] Will Brannon MD Work Phone: 1(461)847-160042 [place] [address] 03-09-2025 02:51-0400 Body mass index (BMI) [Ratio] 42.8 kg/m2 Dr. Will Brannon MD Work Phone: 0(892)096-512742 [place] [address] 03-09-2025 02:51-0400 Body weight 102.[address] Will Brannon MD Work Phone: 2(059)421-022842 [place] [address] 03-09-2025 00:02-0400 Body temperature 98 [degF] Dr. Will Brannon MD Work Phone: [facility] 03-09-2025 00:02-0400 Diastolic blood pressure 62 mm[Hg] Dr. Will Brannon MD Work Phone: [facility] 03-09-2025 00:02-0400 Heart rate 62 /min Dr. Will Brannon MD Work Phone: 2(449)564-691042 [place] [address] 03-09-2025 00:02-0400 Respiratory rate 18 /min Dr. iWll Brannon MD Work Phone: [facility] 03-09-2025 00:02-0400 SaO2% (BldA) [Mass fraction] 97 % Dr. Will Brannon MD Work Phone: 5(798)159-596042 [place] [address] 03-09-2025 00:02-0400 Systolic blood pressure 159 mm[Hg] Dr. Will Brannon MD Work Phone: 4(218)359-758342 [place] [address] 03-08-2025 20:00-0400 Body mass index (BMI) [Ratio] 42.4 kg/m2 Dr. Will Brannon MD Work Phone: 8(423)725-236042 [place] [address] 03-08-2025 20:00-0400 Body weight 101.[address] Will Brannon MD Work Phone: [facility] 01-24-2025 10:37-0400 Body height 155.6 cm Will Brannon MD Work Phone: [facility] 01-24-2025 10:37-0400 Body mass index (BMI) [Ratio] 40.48 kg/m2 Will Brannon MD Work Phone: [facility] 01-24-2025 10:37-0400 Body weight 97.98 kg Will Brannon MD Work Phone: [facility] 01-24-2025 10:37-0400 Diastolic blood pressure 80 mm[Hg] Will Brannon MD Work Phone: [facility] 01-24-2025 10:37-0400 Heart rate 78 /min Will Brannon MD Work Phone: [facility] 01-24-2025 10:37-0400 Respiratory rate 16 /min Will Brannon MD Work Phone: [facility] 01-24-2025 10:37-0400 Systolic blood pressure 112 mm[Hg] Will Brannon MD Work Phone: [facility] 12-03-2024 15:31-0400 Body height 154.9 cm Cory Box PA-C Work Phone: [facility] 12-03-2024 15:31-0400 Body mass index (BMI) [Ratio] 41.19 kg/m2 Cory Box PA-C Work Phone: [facility] 12-03-2024 15:31-0400 Body temperature 97.7 [degF] Cory Box PA-C Work Phone: [facility] 12-03-2024 15:31-0400 Body weight 98.88 kg Cory Box PA-C Work Phone: [facility] 12-03-2024 15:31-0400 Diastolic blood pressure 84 mm[Hg] Cory Box PA-C Work Phone: [facility] 12-03-2024 15:31-0400 Heart rate 98 /min Cory Box PA-C Work Phone: [facility] 12-03-2024 15:31-0400 Respiratory rate 14 /min Cory Box PA-C Work Phone: [facility] 12-03-2024 15:31-0400 SaO2% (BldA) [Mass fraction] 98 % Cory Box PA-C Work Phone: [facility] 12-03-2024 15:31-0400 Systolic blood pressure 122 mm[Hg] Cory Box PA-C Work Phone: [facility] 11-20-2024 03:50-0400 Body temperature 98.2 [degF] Dr. Will Brannon MD Work Phone: [facility] 11-20-2024 03:50-0400 Diastolic blood pressure 74 mm[Hg] Dr. Will Brannon MD Work Phone: 5(071)833-647542 [place] [address] 11-20-2024 03:50-0400 Heart rate 65 /min Dr. Will Brannon MD Work Phone: 5(059)653-925942 [place] [address] 11-20-2024 03:50-0400 Respiratory rate 16 /min Dr. Will Brannon MD Work Phone: 8(340)191-582142 [place] [address] 11-20-2024 03:50-0400 SaO2% (BldA) [Mass fraction] 98 % Dr. Will Brannon MD Work Phone: 2(861)841-299342 [place] [address] 11-20-2024 03:50-0400 Systolic blood pressure 116 mm[Hg] Dr. Will Brannon MD Work Phone: 3(440)212-286542 [place] [address] 11-19-2024 22:06-0400 Body mass index (BMI) [Ratio] 41.3 kg/m2 Dr. Will Brannon MD Work Phone: 4(777)157-993942 [place] [address] 11-19-2024 22:06-0400 Body weight 99.[address] Will Brannon MD Work Phone: 5(920)947-734642 [place] [address] 11-19-2024 20:58-0400 Body height 154.[address] Will Brannon MD Work Phone: 4(336)099-909742 [place] [address] 08-16-2024 18:38-0400 Body temperature 97.8 [degF] Dr. Will Brannon MD Work Phone: 7(108)869-492542 [place] [address] 08-16-2024 18:38-0400 Diastolic blood pressure 85 mm[Hg] Dr. Will Brannon MD Work Phone: 0(672)304-724542 [place] [address] 08-16-2024 18:38-0400 Heart rate 82 /min Dr. Will Brannon MD Work Phone: 5(060)708-298642 [place] [address] 08-16-2024 18:38-0400 Respiratory rate 16 /min Dr. Will Brannon MD Work Phone: 1(152)623-830442 [place] [address] 08-16-2024 18:38-0400 SaO2% (BldA) [Mass fraction] 100 % Dr. Will Brannon MD Work Phone: 0(853)654-476042 [place] [address] 08-16-2024 18:38-0400 Systolic blood pressure 125 mm[Hg] Dr. Will Brannon MD Work Phone: 4(936)664-627942 [place] [address] 08-16-2024 14:31-0400 Body temperature 97.9 [degF] Dr. Will Brannon MD Work Phone: 3(850)051-061242 [place] [address] 08-16-2024 14:31-0400 Diastolic blood pressure 76 mm[Hg] Dr. Will Brannon MD Work Phone: 5(021)142-684742 [place] [address] 08-16-2024 14:31-0400 Heart rate 89 /min Dr. Will Brannon MD Work Phone: 2(132)913-542942 [place] [address] 08-16-2024 14:31-0400 Respiratory rate 16 /min Dr. Will Brannon MD Work Phone: 5(561)867-132442 [place] [address] 08-16-2024 14:31-0400 SaO2% (BldA) [Mass fraction] 98 % Dr. Will Brannon MD Work Phone: 5(111)407-927842 [place] [address] 08-16-2024 14:31-0400 Systolic blood pressure 114 mm[Hg] Dr. Will Brannon MD Work Phone: 9(977)502-043642 [place] [address] 08-16-2024 08:44-0400 Inhaled oxygen flow rate 2 L/min Dr. Will Brannon MD Work Phone: 7(349)540-194942 [place] [address] 08-16-2024 07:55-0400 Body height 154.[address] Will Brannon MD Work Phone: 6(504)960-343242 [place] [address] 08-16-2024 07:55-0400 Body mass index (BMI) [Ratio] 44.6 kg/m2 Dr. Will Brnanon MD Work Phone: 5(512)174-431142 [place] [address] 08-16-2024 07:55-0400 Body weight 107.[address] Will Branonn MD Work Phone: 9(962)722-723042 [place] [address] 08-11-2024 23:30-0400 Diastolic blood pressure 77 mm[Hg] Dr. Will Brannon MD Work Phone: 3(060)828-038542 [place] [address] 08-11-2024 23:30-0400 Heart rate 101 /min Dr. Will Brannon MD Work Phone: 3(085)274-107542 [place] [address] 08-11-2024 23:30-0400 Inhaled oxygen flow rate 2 L/min Dr. Will Brannon MD Work Phone: 2(531)719-819942 [place] [address] 08-11-2024 23:30-0400 Respiratory rate 27 /min Dr. Will Brannon MD Work Phone: 5(657)880-426442 [place] [address] 08-11-2024 23:30-0400 SaO2% (BldA) [Mass fraction] 100 % Dr. Will Brannon MD Work Phone: 7(231)486-418742 [place] [address] 08-11-2024 23:30-0400 Systolic blood pressure 116 mm[Hg] Dr. Will Brannon MD Work Phone: 4(513)041-334142 [place] [address] 08-11-2024 23:09-0400 Body temperature 100.1 [degF] Dr. Will Brannon MD Work Phone: 5(615)834-228942 [place] [address] 08-11-2024 21:29-0400 Body mass index (BMI) [Ratio] 41.6 kg/m2 Dr. Will Brannon MD Work Phone: 5(024)540-434842 [place] [address] 08-11-2024 21:29-0400 Body weight [address] Will Brannon MD Work Phone: 0(484)157-927042 [place] [address] 08-11-2024 21:26-0400 Body height 154.[address] Will Brannon MD Work Phone: 8(931)664-922142 [place] [address] 07-31-2024 19:21-0500 Body temperature 99.3 [degF] Dr. Will Brannon MD Work Phone: 7(037)113-640342 [place] [address] 07-31-2024 19:21-0500 Diastolic blood pressure 80 mm[Hg] Dr. Will Brannon MD Work Phone: 3(192)333-842342 [place] [address] 07-31-2024 19:21-0500 Heart rate 86 /min Dr. Will Brannon MD Work Phone: 6(812)294-803542 [place] [address] 07-31-2024 19:21-0500 Respiratory rate 22 /min Dr. Will Brannon MD Work Phone: 7(977)629-759542 [place] [address] 07-31-2024 19:21-0500 SaO2% (BldA) [Mass fraction] 96 % Dr. Will Brannon MD Work Phone: 6(745)217-780842 [place] [address] 07-31-2024 19:21-0500 Systolic blood pressure 103 mm[Hg] Dr. Will Brannon MD Work Phone: 1(802)220-523042 [place] [address] 07-31-2024 18:05-0500 Body mass index (BMI) [Ratio] 42.9 kg/m2 Dr. Will Brannon MD Work Phone: 3(720)593-081742 [place] [address] 07-31-2024 18:05-0500 Body weight [address] Will Brannon MD Work Phone: 5(287)264-255142 [place] [address] 07-11-2024 22:57-0500 Body temperature 98.5 [degF] Dr. Will Brannon MD Work Phone: 1(166)521-560542 [place] [address] 07-11-2024 22:57-0500 Diastolic blood pressure 79 mm[Hg] Dr. Will Brannon MD Work Phone: 2(241)411-547742 [place] [address] 07-11-2024 22:57-0500 Heart rate 85 /min Dr. Will Brannon MD Work Phone: 4(550)503-074442 [place] [address] 07-11-2024 22:57-0500 Respiratory rate 16 /min Dr. Will Brannon MD Work Phone: 3(323)557-692342 [place] [address] 07-11-2024 22:57-0500 SaO2% (BldA) [Mass fraction] 96 % Dr. Will Brannon MD Work Phone: 4(204)212-591742 [place] [address] 07-11-2024 22:57-0500 Systolic blood pressure 129 mm[Hg] Dr. Will Brannon MD Work Phone: [facility] 07-11-2024 18:21-0500 Body mass index (BMI) [Ratio] 41.5 kg/m2 Dr. Will Brannon MD Work Phone: [facility] 07-11-2024 18:21-0500 Body weight 99.[address] Will Brannon MD Work Phone: [facility] 07-11-2024 16:05-0500 Body mass index (BMI) [Ratio] 40.59 kg/m2 Devin George [employer] Work Phone: [facility] 07-11-2024 16:05-0500 Body weight 100.7 kg Devin George [employer] Work Phone: [facility] 07-11-2024 16:05-0500 Diastolic blood pressure 85 mm[Hg] Devin George APRN.[employer] Work Phone: [facility] 07-11-2024 16:05-0500 Heart rate 93 /min Devin George [employer] Work Phone: [facility] 07-11-2024 16:05-0500 Systolic blood pressure 132 mm[Hg] Devin George [employer] Work Phone: [facility] 07-09-2024 15:55-0500 Body mass index (BMI) [Ratio] 40.37 kg/m2 Araceli Laraer PA-C Work Phone: [facility] 07-09-2024 15:55-0500 Body weight 100.15 kg Araceli Laraer PA-C Work Phone: [facility] 07-09-2024 15:55-0500 Diastolic blood pressure 88 mm[Hg] Araceli Laraer PA-C Work Phone: [facility] 07-09-2024 15:55-0500 Heart rate 69 /min Araceli Laraer PA-C Work Phone: [facility] 07-09-2024 15:55-0500 SaO2% (BldA) [Mass fraction] 100 % Araceli Torres PA-C Work Phone: 2(723)956-842264 [place] [address] 07-09-2024 15:55-0500 Systolic blood pressure 122 mm[Hg] Araceli Torres PA-C Work Phone: 5(870)968-521464 [place] [address] 06-13-2024 01:45-0500 Body temperature 98.4 [degF] Dr. Will Brannon MD Work Phone: 0(228)257-707242 [place] [address] 06-13-2024 01:45-0500 Diastolic blood pressure 89 mm[Hg] Dr. Will Brannon MD Work Phone: 3(121)046-679042 [place] [address] 06-13-2024 01:45-0500 Heart rate 89 /min Dr. Will Brannon MD Work Phone: 7(470)325-926242 [place] [address] 06-13-2024 01:45-0500 Respiratory rate 18 /min Dr. Will Brannon MD Work Phone: 1(779)165-397342 [place] [address] 06-13-2024 01:45-0500 SaO2% (BldA) [Mass fraction] 99 % Dr. Will Brannon MD Work Phone: 4(650)444-223942 [place] [address] 06-13-2024 01:45-0500 Systolic blood pressure 142 mm[Hg] Dr. Will Brannon MD Work Phone: 7(035)866-714642 [place] [address] 06-12-2024 22:50-0500 Body mass index (BMI) [Ratio] 41.4 kg/m2 Dr. Will Brannon MD Work Phone: 0(458)900-402737 [place] [address] 06-12-2024 22:50-0500 Body weight 99.[address] Will Brannon MD Work Phone: 2(703)796-705542 [place] [address] 06-09-2024 04:23-0500 Body temperature 97.7 [degF] Dr. Will Brannon MD Work Phone: 7(282)012-141242 [place] [address] 06-09-2024 04:23-0500 Diastolic blood pressure 89 mm[Hg] Dr. Will Brannon MD Work Phone: 6(503)332-385442 [place] [address] 06-09-2024 04:23-0500 Heart rate 57 /min Dr. Will Brannon MD Work Phone: [facility] 06-09-2024 04:23-0500 Respiratory rate 18 /min Dr. Will Brannon MD Work Phone: [facility] 06-09-2024 04:23-0500 SaO2% (BldA) [Mass fraction] 98 % Dr. Will Brannon MD Work Phone: [facility] 06-09-2024 04:23-0500 Systolic blood pressure 126 mm[Hg] Dr. Will Brannon MD Work Phone: 9(073)464-010737 [place] [address] 06-09-2024 00:26-0500 Body mass index (BMI) [Ratio] 42.2 kg/m2 Dr. Will Brannon MD Work Phone: [facility] 06-09-2024 00:26-0500 Body weight 101.[address] Will Brannon MD Work Phone: [facility] 06-02-2024 01:46-0500 Diastolic Blood Pressure Non-Invasive 86 mm[Hg] SOLEDAD VARGAS MD [facility] 06-02-2024 01:46-0500 Heart rate 78 /min SOLEDAD VARGAS MD [facility] 06-02-2024 01:46-0500 Reason For Taking VItal Signs SOLEDAD VARGAS MD [facility] 06-02-2024 01:46-0500 Respiratory rate 18 /min SOLEDAD VARGAS MD [facility] 06-02-2024 01:46-0500 Systolic Blood Pressure Non-Invasive 124 mm[Hg] SOLEDAD VARGAS MD [facility] 06-02-2024 00:27-0500 Body temperature 98.78 [degF] SOLEDAD VARGAS MD [facility] 06-02-2024 00:27-0500 Diastolic Blood Pressure Non-Invasive 53 mm[Hg] SOLEDAD VARGAS MD [facility] 06-02-2024 00:27-0500 Heart rate 101 /min SOLEDAD VARGAS MD [facility] 06-02-2024 00:27-0500 Respiratory rate 20 /min SOLEDAD VARGAS MD [facility] 06-02-2024 00:27-0500 Systolic Blood Pressure Non-Invasive 128 mm[Hg] SOLEDAD VARGAS MD [facility] 04-10-2024 15:52-0500 Body mass index (BMI) [Ratio] 39.86 kg/m2 Will Brannon MD Work Phone: [facility] 04-10-2024 15:52-0500 Body weight 98.88 kg Will Brannon MD Work Phone: [facility] 04-10-2024 15:52-0500 Diastolic blood pressure 74 mm[Hg] Will Brannon MD Work Phone: [facility] 04-10-2024 15:52-0500 Heart rate 88 /min Will Brannon MD Work Phone: [facility] 04-10-2024 15:52-0500 Respiratory rate 18 /min Will Brannon MD Work Phone: [facility] 04-10-2024 15:52-0500 Systolic blood pressure 114 mm[Hg] Will Brannon MD Work Phone: [facility] 04-06-2024 23:45-0500 Body temperature 98.24 [degF] NIDAL CHOUJAA DO [facility] 04-06-2024 23:45-0500 Diastolic Blood Pressure Non-Invasive 63 mm[Hg] NIDAL CHOUJAA DO [facility] 04-06-2024 23:45-0500 Heart rate 90 /min NIDAL CHOUJAA DO [facility] 04-06-2024 23:45-0500 Respiratory rate 18 /min NIDAL CHOUJAA DO [facility] 04-06-2024 23:45-0500 Systolic Blood Pressure Non-Invasive 130 mm[Hg] NIDAL CHOUJAA DO [facility] 03-25-2024 09:36-0400 Diastolic blood pressure 61 mm[Hg] Xavier Josue MD Work Phone: [facility] 03-25-2024 09:36-0400 Systolic blood pressure 116 mm[Hg] Xavier Josue MD Work Phone: [facility] 03-25-2024 09:06-0400 Heart rate 92 /min Xavier Josue MD Work Phone: [facility] 03-25-2024 09:06-0400 SaO2% (BldA) [Mass fraction] 94 % Xavier Josue MD Work Phone: [facility] 03-25-2024 08:29-0400 Body mass index (BMI) [Ratio] 39.67 kg/m2 Xavier Josue MD Work Phone: [facility] 03-25-2024 08:29-0400 Body temperature 98.1 [degF] Xavier Josue MD Work Phone: [facility] 03-25-2024 08:29-0400 Body weight 98.4 kg Xavier Josue MD Work Phone: [facility] 03-25-2024 08:29-0400 Respiratory rate 16 /min Xavier Josue MD Work Phone: [facility] 03-21-2024 14:41-0400 Body mass index (BMI) [Ratio] 40.5 kg/m2 Kandace Alexander MD Work Phone: [facility] 03-21-2024 14:41-0400 Body temperature 98.01 [degF] Kandace Alexander MD Work Phone: [facility] 03-21-2024 14:41-0400 Body weight 100.47 kg Kandace Alexander MD Work Phone: [facility] 03-21-2024 14:41-0400 Diastolic blood pressure 82 mm[Hg] Kandace Alexander MD Work Phone: [facility] 03-21-2024 14:41-0400 Heart rate 77 /min Kandace Alexander MD Work Phone: [facility] 03-21-2024 14:41-0400 SaO2% (BldA) [Mass fraction] 98 % Kandace Alexander MD Work Phone: [facility] 03-21-2024 14:41-0400 Systolic blood pressure 127 mm[Hg] Kandace Alexander MD Work Phone: [facility] 03-04-2024 14:58-0400 Body height 157.5 cm Xavier Josue MD Work Phone: [facility] 03-04-2024 14:58-0400 Body mass index (BMI) [Ratio] 39.68 kg/m2 Xavier Josue MD Work Phone: [facility] 03-04-2024 14:58-0400 Body temperature 97.11 [degF] Xavier Josue MD Work Phone: [facility] 03-04-2024 14:58-0400 Body weight 98.43 kg Xavier Josue MD Work Phone: [facility] 03-04-2024 14:58-0400 Diastolic blood pressure 88 mm[Hg] Xavier Josue MD Work Phone: [facility] 03-04-2024 14:58-0400 Heart rate 127 /min Xavier Josue MD Work Phone: [facility] Comment on above: Rechecked pulse- 98 03-04-2024 14:58-0400 SaO2% (BldA) [Mass fraction] 96 % Xavier Josue MD Work Phone: [facility] 03-04-2024 14:58-0400 Systolic blood pressure 118 mm[Hg] Xavier Josue MD Work Phone: [facility] 02-26-2024 00:15-0400 Heart rate 91 /min MARTIN CHAHAL MD [facility] 02-25-2024 23:23-0400 Blood Pressure Cuff Size MARTIN CHAHAL MD [facility] 02-25-2024 23:23-0400 Blood Pressure Location MARTIN CHAHAL MD [facility] 02-25-2024 23:23-0400 Blood Pressure Method MARTIN CHAHAL MD [facility] 02-25-2024 23:23-0400 Body height 155 cm MARTIN CHAHAL MD [facility] 02-25-2024 23:23-0400 Body temperature 100.04 [degF] MARTIN CHAHAL MD [facility] 02-25-2024 23:23-0400 Body weight 99 kg MARTIN CHAHAL MD [facility] 02-25-2024 23:23-0400 Diastolic Blood Pressure Non-Invasive 79 mm[Hg] MARTIN CHAHAL MD [facility] 02-25-2024 23:23-0400 Heart rate 99 /min MARTIN CHAHAL MD [facility] 09-29-2024 23:23-0400 Respiratory rate 20 /min MARTIN CHAHAL MD [facility] 02-25-2024 23:23-0400 Systolic Blood Pressure Non-Invasive 139 mm[Hg] MARTIN CHAHAL MD [facility] 02-02-2024 23:41-0400 Body height 155 cm LUDWIG GRACET DO [facility] 02-02-2024 23:41-0400 Body temperature 99.14 [degF] LUDWIG GRACET DO [facility] 02-02-2024 23:41-0400 Body weight 98.8 kg LUDWIG GRACET DO [facility] 02-02-2024 23:41-0400 Diastolic Blood Pressure Non-Invasive 91 mm[Hg] LUDWIG GRACET DO [facility] 02-02-2024 23:41-0400 Heart rate 83 /min LUDWIG GRACET DO [facility] 02-02-2024 23:41-0400 Respiratory rate 18 /min LUDWIG GRACET DO [facility] 02-02-2024 23:41-0400 Systolic Blood Pressure Non-Invasive 134 mm[Hg] LUDWIG GRACET DO [facility] 01-03-2024 16:08-0400 Body mass index (BMI) [Ratio] 39.74 kg/m2 Araceli SAWANT-C Work Phone: [facility] 01-03-2024 16:08-0400 Body weight 96.71 kg Araceli SAWANT-Acosta Work Phone: [facility] 01-03-2024 16:08-0400 Diastolic blood pressure 78 mm[Hg] Araceli Queener PA-C Work Phone: [facility] 01-03-2024 16:08-0400 Heart rate 90 /min Araceli Torres PA-C Work Phone: [facility] 01-03-2024 16:08-0400 Respiratory rate 16 /min Araceli Torres PA-C Work Phone: [facility] 01-03-2024 16:08-0400 SaO2% (BldA) [Mass fraction] 98 % Araceli Torres PA-C Work Phone: [facility] 01-03-2024 16:08-0400 Systolic blood pressure 110 mm[Hg] Araceli Torres PA-C Work Phone: [facility] 12-06-2023 10:22-0400 Body height 154.9 cm Nilda Cioce [employer] MAKER.[employer] Work Phone: [facility] 12-06-2023 10:22-0400 Body mass index (BMI) [Ratio] 40.36 kg/m2 Nilda Cioce [employer] MAKER.[employer]OR [employer] Work Phone: [facility] 12-06-2023 10:22-0400 Body weight 96.89 kg Nilda Cioce SL[employer] MAKER.[employer] Work Phone: [facility] 12-06-2023 10:22-0400 Diastolic blood pressure 64 mm[Hg] Nilda Cioce SL[employer] MAKER.DIRECTOR [employer] Work Phone: [facility] 12-06-2023 10:22-0400 Heart rate 80 /min Nilda Cioce SL[employer] MAKER.DIRECT[employer] Work Phone: [facility] 12-06-2023 10:22-0400 Respiratory rate 20 /min Nilda Cioce SL[employer] MAKER.DIRECT[employer] Work Phone: [facility] 12-06-2023 10:22-0400 SaO2% (BldA) [Mass fraction] 98 % Nilda Cioce [employer] MAKER.DIRECTOR [employer] Work Phone: [facility] 12-06-2023 10:22-0400 Systolic blood pressure 112 mm[Hg] Nilda Underwood [employer] MAKER.DIRECTOR [employer] Work Phone: [facility] 12-05-2023 16:49-0400 Body height 154.9 cm Cory Box PA-C Work Phone: [facility] 12-05-2023 16:49-0400 Body mass index (BMI) [Ratio] 40.25 kg/m2 Cory Box PA-C Work Phone: [facility] 12-05-2023 16:49-0400 Body temperature 97.7 [degF] Cory Box PA-C Work Phone: [facility] 12-05-2023 16:49-0400 Body weight 96.62 kg Cory Box PA-C Work Phone: [facility] 12-05-2023 16:49-0400 Diastolic blood pressure 82 mm[Hg] Cory Box PA-C Work Phone: [facility] 12-05-2023 16:49-0400 Heart rate 108 /min Cory Box PA-C Work Phone: [facility] 12-05-2023 16:49-0400 Respiratory rate 16 /min Cory Box PA-C Work Phone: [facility] 12-05-2023 16:49-0400 SaO2% (BldA) [Mass fraction] 99 % Cory Box PA-C Work Phone: [facility] 12-05-2023 16:49-0400 Systolic blood pressure 120 mm[Hg] Cory Box PA-C Work Phone: [facility] 12-04-2023 16:00-0400 Body mass index (BMI) [Ratio] 40.25 kg/m2 Devin George [employer] MAKER.[employer] Work Phone: [facility] 12-04-2023 16:00-0400 Body weight 96.62 kg Devin George [employer] MAKER.[employer] Work Phone: [facility] 12-04-2023 16:00-0400 Diastolic blood pressure 79 mm[Hg] Devin Litzyoble SL[employer] MAKER.DIRECTOR [employer] Work Phone: [facility] 12-04-2023 16:00-0400 Heart rate 89 /min Devin Litzyoble SLIP MAKER.DIRECTOR [employer] Work Phone: [facility] 12-04-2023 16:00-0400 Respiratory rate 16 /min Devin Litzyoble SLIP MAKER.DIRECTOR [employer] Work Phone: [facility] 12-04-2023 16:00-0400 Systolic blood pressure 119 mm[Hg] Devin Knoble SLIP MAKER.DIRECTOR [employer] Work Phone: [facility] 11-22-2023 10:41-0400 Body temperature 98.06 [degF] KRISTOFER LARKIN MD [facility] 11-22-2023 10:41-0400 Diastolic Blood Pressure Non-Invasive 65 mm[Hg] KRISTOFER LARKIN MD [facility] 11-22-2023 10:41-0400 Heart rate 87 /min KRISTOFER LARKIN MD [facility] 11-22-2023 10:41-0400 Respiratory rate 16 /min KRISTOFER LARKIN MD [facility] 11-22-2023 10:41-0400 Systolic Blood Pressure Non-Invasive 98 mm[Hg] KRISTOFER LARKIN MD [facility] 11-22-2023 06:50-0400 Body temperature 98.06 [degF] KRISTOFER LARKIN MD [facility] 11-22-2023 06:50-0400 Diastolic Blood Pressure Non-Invasive 67 mm[Hg] KRISTOFER LARKIN MD [facility] 11-22-2023 06:50-0400 Heart rate 70 /min KRISTOFER LARKIN MD [facility] 11-22-2023 06:50-0400 Respiratory rate 16 /min KRISTOFER LARKIN MD [address] [place] [address] 11-22-2023 06:50-0400 Systolic Blood Pressure Non-Invasive 98 mm[Hg] KRISTOFER LARKIN MD [address] [place] [id number] 11-22-2023 01:39-0400 Diastolic Blood Pressure Non-Invasive 67 mm[Hg] KRISTOFER LARKIN MD [address] [place] [address] 11-22-2023 01:39-0400 Heart rate 84 /min KRISTOFER LARKIN MD [address] [place] [address] 11-22-2023 01:39-0400 Systolic Blood Pressure Non-Invasive 103 mm[Hg] KRISTOFER LARKIN MD [address] [place] [address] 11-21-2023 22:50-0400 Body temperature 98.42 [degF] KRISTOFER LARKIN MD [address] [place] [address] 11-21-2023 22:50-0400 Heart rate 74 /min KRISTOFER LARKIN MD [address] [place] [address] 11-21-2023 22:50-0400 Reason For Taking VItal Signs KRISTOFER LARKIN MD [address] [place] [address] 11-21-2023 22:50-0400 Respiratory rate 18 /min KRISTOFER LARKIN MD [address] [place] [address] 11-21-2023 19:55-0400 Heart rate 89 /min KRISTOFER LARKIN MD [address] [place] [address] 11-21-2023 15:24-0400 Heart rate 84 /min KRISTOFER LARKIN MD [address] [place] [address] 11-21-2023 15:24-0400 Reason For Taking VItal Signs KRISTOFER LARKIN MD [address] [place] [address] 11-21-2023 00:28-0400 Reason For Taking VItal Signs KRISTOFER LARKIN MD [address] [place] [address] 11-20-2023 17:36-0400 Blood Pressure Cuff Size KRISTOFER LARKIN MD [address] [place] [address] 11-20-2023 17:36-0400 Blood Pressure Location KRISTOFER LARKIN MD [address] [place] [address] 11-20-2023 17:36-0400 Blood Pressure Method KRISTOFER LARKIN MD [facility] 11-20-2023 17:36-0400 Mean blood pressure 78 mm[Hg] KRISTOFER LARKIN MD [address] [place] [address] 11-20-2023 15:37-0400 Blood Pressure Cuff Size KRISTOFER LARKIN MD [address] [place] [address] 11-20-2023 15:37-0400 Blood Pressure Location KRISTOFER LARKIN MD [address] [place] [address] 11-20-2023 15:37-0400 Blood Pressure Method KRISTOFER LARKIN MD [address] [place] [address] 11-19-2023 23:06-0400 Mean blood pressure 73 mm[Hg] KRISTOFER LARKIN MD [address] [place] [address] 11-19-2023 19:54-0400 Heart rate 84 /min KRISTOFER LARKIN MD [address] [place] [address] 11-19-2023 19:54-0400 Mean blood pressure 76 mm[Hg] KRISTOFER LARKIN MD [address] [place] [address] 11-19-2023 03:20-0400 Blood Pressure Cuff Size KRISTOFER LARKIN MD [address] [place] [address] 11-19-2023 03:20-0400 Blood Pressure Location KRISTOFER LARKIN MD [address] [place] [address] 11-19-2023 03:20-0400 Blood Pressure Method KRISTOFER LARKIN MD [address] [place] [address] 11-18-2023 09:54-0400 Body height 155 cm KRISTOFER LARKIN MD [address] [place] [address] 11-18-2023 09:54-0400 Body weight 108.4 kg KRISTOFER LARKIN MD [address] [place] [address] 11-18-2023 09:54-0400 Body weight 45.12 kg/m2 KRISTOFER LARKIN MD [facility] 11-18-2023 08:43-0400 Diastolic Blood Pressure Non-Invasive 61 mm[Hg] CAS DURESKA DO [facility] 11-18-2023 08:43-0400 Heart rate 79 /min CAS DURESKA DO [facility] 11-18-2023 08:43-0400 Respiratory rate 18 /min CAS DURESKA DO [facility] 11-18-2023 08:43-0400 Systolic Blood Pressure Non-Invasive 97 mm[Hg] CAS DURESKA DO [facility] 11-18-2023 07:05-0400 Blood Pressure Cuff Size CAS DURESKA DO [facility] 11-18-2023 07:05-0400 Blood Pressure Location CAS DURESKA DO [facility] 11-18-2023 07:05-0400 Blood Pressure Method CAS DURESKA DO [facility] 11-18-2023 07:05-0400 Diastolic Blood Pressure Non-Invasive 63 mm[Hg] CAS DURESKA DO [facility] 11-18-2023 07:05-0400 Heart rate 76 /min CAS DURESKA DO [facility] 11-18-2023 07:05-0400 Respiratory rate 18 /min CAS DURESKA DO [facility] 11-18-2023 07:05-0400 Systolic Blood Pressure Non-Invasive 102 mm[Hg] CAS DURESKA DO [facility] 11-18-2023 06:01-0400 Blood Pressure Cuff Size CAS RAZOKA DO [facility] 11-18-2023 06:01-0400 Blood Pressure Location CAS PAYNE DO [facility] 11-18-2023 06:01-0400 Blood Pressure Method CAS VASQUESESKA DO [facility] 11-18-2023 06:01-0400 Diastolic Blood Pressure Non-Invasive 59 mm[Hg] CAS VASQUESESKA DO [facility] 11-18-2023 06:01-0400 Heart rate 76 /min CAS LAYOESKA DO [facility] 11-18-2023 06:01-0400 Respiratory rate 18 /min CAS RAZOKA DO [facility] 11-18-2023 06:01-0400 Systolic Blood Pressure Non-Invasive 100 mm[Hg] CAS VASQUESESKA DO [facility] 11-18-2023 05:39-0400 Body temperature 98.96 [degF] CAS DURESKA DO [facility] 11-18-2023 03:10-0400 Body temperature 99.14 [degF] CAS DURESKA DO [facility] 11-17-2023 23:23-0400 Body temperature 101.12 [degF] CAS DURESKA DO [facility] 11-17-2023 22:46-0400 Body height 155 cm CAS VASQUESESKA DO [facility] 11-17-2023 22:46-0400 Body temperature 101.66 [degF] CAS PAYNE DO [facility] 11-17-2023 22:46-0400 Body weight 101.6 kg CAS PAYNE DO [facility] 11-17-2023 22:46-0400 Reason For Taking VItal Signs CAS PAYNE DO [facility] 11-02-2023 15:34-0400 Body temperature 98.6 [degF] DR WALLACE BRUNSON MD [facility] 11-02-2023 15:34-0400 Diastolic Blood Pressure Non-Invasive 74 mm[Hg] DR WALLACE BRUNSON MD [facility] 11-02-2023 15:34-0400 Heart rate 74 /min DR WALLACE BRUNSON MD [facility] 11-02-2023 15:34-0400 Reason For Taking VItal Signs DR WALLACE BRUNSON MD [facility] 11-02-2023 15:34-0400 Respiratory rate 18 /min DR WALLACE BRUNSON MD [facility] 11-02-2023 15:34-0400 Systolic Blood Pressure Non-Invasive 121 mm[Hg] DR WALLACE BRUNSON MD [facility] 11-02-2023 11:26-0400 Body temperature 98.24 [degF] DR WALLACE BRUNSON MD [facility] 11-02-2023 11:26-0400 Diastolic Blood Pressure Non-Invasive 65 mm[Hg] DR WALLACE BRUNSON MD [facility] 11-02-2023 11:26-0400 Heart rate 66 /min DR WALLACE BRUNSON MD [facility] 11-02-2023 11:26-0400 Reason For Taking VItal Signs DR WALLACE BRUNSON MD [facility] 11-02-2023 11:26-0400 Systolic Blood Pressure Non-Invasive 98 mm[Hg] DR WALLACE BRUNSON MD [facility] 11-02-2023 08:50-0400 Body temperature 99.5 [degF] DR WALLACE BRUNSON MD [facility] 11-02-2023 08:50-0400 Diastolic Blood Pressure Non-Invasive 76 mm[Hg] DR WALLACE BRUNSON MD [facility] 11-02-2023 08:50-0400 Heart rate 75 /min DR WALLACE BRUNSON MD [facility] 11-02-2023 08:50-0400 Reason For Taking VItal Signs DR WALLACE BRUNSON MD [facility] 11-02-2023 08:50-0400 Respiratory rate 20 /min DR WALLACE BRUNSON MD [facility] 11-02-2023 08:50-0400 Systolic Blood Pressure Non-Invasive 114 mm[Hg] DR WALLACE BRUNSON MD [facility] 11-01-2023 15:27-0400 Heart rate 80 /min DR WALLACE BRUNSON MD [facility] 11-01-2023 06:27-0400 Heart rate 72 /min DR WALLACE BRUNSON MD [facility] 10-31-2023 15:40-0400 Heart rate 75 /min DR WALLACE BRUNSON MD [facility] 10-31-2023 02:50-0400 Body height [address] WALLACE BRUNSON MD [facility] 10-31-2023 02:50-0400 Body weight 97.[address] WALLACE BRUNSON MD [facility] 10-31-2023 02:50-0400 Body weight 40.58 kg/m2 DR WALLACE BRUNSON MD [facility] 10-30-2023 23:03-0400 Body weight 97.[address] WALLACE BRUNSON MD [facility] 10-11-2023 09:09-0400 Body height 154.9 cm Pacc 1 Work Phone: [facility] 10-11-2023 09:09-0400 Body mass index (BMI) [Ratio] 40.62 kg/m2 Pacc 1 Work Phone: [facility] 10-11-2023 09:09-0400 Body temperature 97.7 [degF] Pacc 1 Work Phone: [facility] 10-11-2023 09:09-0400 Body weight 97.52 kg Pacc 1 Work Phone: [facility] 10-11-2023 09:09-0400 Diastolic blood pressure 82 mm[Hg] Pacc 1 Work Phone: [facility] 10-11-2023 09:09-0400 Heart rate 99 /min Pacc 1 Work Phone: [facility] 10-11-2023 09:09-0400 SaO2% (BldA) [Mass fraction] 97 % Pacc 1 Work Phone: [facility] 10-11-2023 09:09-0400 Systolic blood pressure 118 mm[Hg] Pacc 1 Work Phone: [facility] 10-09-2023 15:49-0400 Body mass index (BMI) [Ratio] 39.87 kg/m2 Devin George APRN.DIRECTOR [employer] Work Phone: [facility] 10-09-2023 15:49-0400 Body weight 98.88 kg Devin George APRN.DIRECTOR [employer] Work Phone: [facility] 10-09-2023 15:49-0400 Diastolic blood pressure 71 mm[Hg] Devin George APRN.DIRECTOR [employer] Work Phone: [facility] 10-09-2023 15:49-0400 Heart rate 84 /min Devin George APRN.DIRECTOR [employer] Work Phone: [facility] 10-09-2023 15:49-0400 Respiratory rate 14 /min Devin George APRN.DIRECTOR [employer] Work Phone: [facility] 10-09-2023 15:49-0400 Systolic blood pressure 112 mm[Hg] Devin George APRN.DIRECTOR [employer] Work Phone: [facility] 10-07-2023 15:45-0400 Body temperature 98.6 [degF] [facility] 10-07-2023 15:45-0400 Diastolic blood pressure 74 mm[Hg] [facility] 10-07-2023 15:45-0400 Heart rate 112 /min [facility] 10-07-2023 15:45-0400 Respiratory rate 18 /min [facility] 10-07-2023 15:45-0400 SaO2% (BldA) [Mass fraction] 97 % [facility] 10-07-2023 15:45-0400 Systolic blood pressure 124 mm[Hg] [facility] 10-07-2023 13:16-0400 Body height 154.94 cm [facility] 10-07-2023 13:16-0400 Body mass index (BMI) [Ratio] 41.3 kg/m2 [facility] 10-07-2023 13:16-0400 Body weight 99.13 kg [facility] 09-28-2023 17:08-0400 Body mass index (BMI) [Ratio] 39.32 kg/m2 Devin George SLIP MAKER.[employer] Work Phone: [facility] 09-28-2023 17:08-0400 Body weight 97.52 kg Devin George SLIP MAKER.DIRECT[employer] Work Phone: [facility] 09-28-2023 17:08-0400 Diastolic blood pressure 78 mm[Hg] Devin George SLIP MAKER.DIRECTOR [employer] Work Phone: [facility] 09-28-2023 17:08-0400 Heart rate 85 /min Devin George SLIP MAKER.DIRECT[employer] Work Phone: [facility] 09-28-2023 17:08-0400 Respiratory rate 14 /min Devin George SLIP MAKER.DIRECTOR [employer] Work Phone: [facility] 09-28-2023 17:08-0400 Systolic blood pressure 110 mm[Hg] Devin George SLIP MAKER.DIRECTOR [employer] Work Phone: [facility] 09-25-2023 00:07-0400 Diastolic Blood Pressure Non-Invasive 74 mm[Hg] NIDAL CHOUJAA DO [facility] 09-25-2023 00:07-0400 Heart rate 76 /min NIDAL CHOUJAA DO [facility] 09-25-2023 00:07-0400 Respiratory rate 18 /min NIDAL CHOUJAA DO [facility] 09-25-2023 00:07-0400 Systolic Blood Pressure Non-Invasive 124 mm[Hg] NIDAL CHOUJAA DO [facility] 09-24-2023 22:19-0400 Body temperature 98.24 [degF] NIDAL CHOUJAA DO [facility] 09-24-2023 22:19-0400 Diastolic Blood Pressure Non-Invasive 86 mm[Hg] NIDAL CHOUJAA DO [facility] 09-24-2023 22:19-0400 Heart rate 73 /min NIDAL CHOUJAA DO [facility] 09-24-2023 22:19-0400 Respiratory rate 18 /min NIDAL CHOUJAA DO [facility] 09-24-2023 22:19-0400 Systolic Blood Pressure Non-Invasive 133 mm[Hg] NIDAL CHOUJAA DO [facility] 09-21-2023 13:26-0400 Body mass index (BMI) [Ratio] 39.35 kg/m2 Daiana Sweeney MD Work Phone: [facility] 09-21-2023 13:26-0400 Body temperature 98.29 [degF] Daiana Sweeney MD Work Phone: [facility] 09-21-2023 13:26-0400 Body weight 97.6 kg Daiana Sweeney MD Work Phone: [facility] Comment on above: with shoes 09-21-2023 13:26-0400 Diastolic blood pressure 87 mm[Hg] Daiana Sweeney MD Work Phone: [facility] 09-21-2023 13:26-0400 Heart rate 68 /min Daiana Sweeney MD Work Phone: [facility] 09-21-2023 13:26-0400 Respiratory rate 18 /min Daiana Sweeney MD Work Phone: [facility] 09-21-2023 13:26-0400 SaO2% (BldA) [Mass fraction] 98 % Daiana Sweeney MD Work Phone: [facility] 09-21-2023 13:26-0400 Systolic blood pressure 134 mm[Hg] Daiana Sweeney MD Work Phone: [facility] 08-16-2023 16:07-0400 Body weight 99.97 kg Araceli SAWANT-C Work Phone: [facility] 08-16-2023 16:07-0400 Diastolic blood pressure 76 mm[Hg] Araceli Torres PA-C Work Phone: [facility] 08-16-2023 16:07-0400 Heart rate 78 /min Araceli Torres PA-C Work Phone: [facility] 08-16-2023 16:07-0400 Respiratory rate 16 /min Araceli Laraer PA-C Work Phone: [facility] 08-16-2023 16:07-0400 SaO2% (BldA) [Mass fraction] 99 % Araceli Torres PA-C Work Phone: [facility] 08-16-2023 16:07-0400 Systolic blood pressure 106 mm[Hg] Araceli Laraer PA-C Work Phone: [facility] 08-13-2023 22:11-0400 Body temperature 98.2 [degF] [facility] 08-13-2023 22:11-0400 Diastolic blood pressure 82 mm[Hg] [facility] 08-13-2023 22:11-0400 Heart rate 77 /min [facility] 08-13-2023 22:11-0400 Respiratory rate 16 /min [facility] 08-13-2023 22:11-0400 SaO2% (BldA) [Mass fraction] 99 % [facility] 08-13-2023 22:11-0400 Systolic blood pressure 120 mm[Hg] [facility] 08-13-2023 20:09-0400 Body height 154.94 cm [facility] 08-13-2023 20:09-0400 Body mass index (BMI) [Ratio] 41.2 kg/m2 [facility] 08-13-2023 20:09-0400 Body weight 98.96 kg [facility] 07-20-2023 01:38-0500 Diastolic blood pressure 86 mm[Hg] MARTIN CHAHAL MD [facility] 07-20-2023 01:38-0500 Heart rate 84 /min MARTIN CHAHAL MD [facility] 07-20-2023 01:38-0500 Respiratory rate 18 /min MATRIN CHAHAL MD [facility] 07-20-2023 01:38-0500 Systolic blood pressure 137 mm[Hg] MARTIN CHAHAL MD [facility] 07-19-2023 23:48-0500 Body temperature 98.78 [degF] MARTIN CHAHAL MD [facility] 07-19-2023 23:48-0500 Body weight 97.7 kg MARTIN CHAHAL MD [facility] 07-19-2023 23:48-0500 Diastolic Blood Pressure Non-Invasive 83 mm[Hg] MARTIN CHAHAL MD [facility] 07-19-2023 23:48-0500 Heart rate 91 /min MARTIN CHAHAL MD [facility] 07-19-2023 23:48-0500 Respiratory rate 20 /min MARTIN CHAHAL MD [facility] 07-19-2023 23:48-0500 Systolic Blood Pressure Non-Invasive 143 mm[Hg] MARTIN CHAHAL MD [facility] 07-18-2023 13:19-0500 Body height 157.5 cm Stephan Nicholson MD Work Phone: [facility] 07-18-2023 13:19-0500 Body weight 98.88 kg Stephan Nicholson MD Work Phone: [facility] 07-18-2023 13:19-0500 Diastolic blood pressure 63 mm[Hg] Stephan Nicholson MD Work Phone: [facility] 07-18-2023 13:19-0500 Heart rate 72 /min Stephan Nicholson MD Work Phone: [facility] 07-18-2023 13:19-0500 SaO2% (BldA) [Mass fraction] 98 % Stephan Nicholson MD Work Phone: [facility] 07-18-2023 13:19-0500 Systolic blood pressure 101 mm[Hg] Stephan Nicholson MD Work Phone: [facility] 07-15-2023 14:33-0500 Diastolic Blood Pressure Non-Invasive 76 mm[Hg] BRADY DOMINGUEZ MD [facility] 07-15-2023 14:33-0500 Heart rate 76 /min BRADY DOMINGUEZ MD [facility] 07-15-2023 14:33-0500 Respiratory rate 18 /min BRADY DOMINGUEZ MD [facility] 07-15-2023 14:33-0500 Systolic Blood Pressure Non-Invasive 110 mm[Hg] BRADY DOMINGUEZ MD [facility] 07-15-2023 13:05-0500 Body height 155 cm BRADY DOMINGUEZ MD [facility] 07-15-2023 13:05-0500 Body temperature 97.7 [degF] BRADY DOMINGUEZ MD [facility] 07-15-2023 13:05-0500 Body weight 100 kg BRADY DOMINGUEZ MD [facility] 07-15-2023 13:05-0500 Diastolic Blood Pressure Non-Invasive 68 mm[Hg] BRADY DOMINGUEZ MD [facility] 07-15-2023 13:05-0500 Heart rate 86 /min BRADY DOMINGUEZ MD [facility] 07-15-2023 13:05-0500 Respiratory rate 20 /min BRADY DOMINGUEZ MD [facility] 07-15-2023 13:05-0500 Systolic Blood Pressure Non-Invasive 118 mm[Hg] BRADY DOMINGUEZ MD [facility] 06-07-2023 20:17-0500 Blood Pressure Cuff Size JHONY REICHFIELD DO [facility] 06-07-2023 20:17-0500 Blood Pressure Location JHONY REICHFIELD DO [facility] 06-07-2023 20:17-0500 Blood Pressure Method JHONY REICHFIELD DO [facility] 06-07-2023 20:17-0500 Diastolic Blood Pressure Non-Invasive 80 mm[Hg] JHONY REICHFIELD DO [facility] 06-07-2023 20:17-0500 Heart rate 64 /min JHONY REICHFIELD DO [facility] 06-07-2023 20:17-0500 Respiratory rate 16 /min JHONY REICHFIELD DO [facility] 06-07-2023 20:17-0500 Systolic Blood Pressure Non-Invasive 117 mm[Hg] JHONY REICHFIELD DO [facility] 06-07-2023 18:24-0500 Blood Pressure Location JHONY REICHFIELD DO [facility] 06-07-2023 18:24-0500 Body temperature 98.78 [degF] JHONY REICHFIELD DO [facility] 06-07-2023 18:24-0500 Diastolic Blood Pressure Non-Invasive 97 mm[Hg] JHONY REICHFIELD DO [facility] 06-07-2023 18:24-0500 Heart rate 88 /min JHONY REICHFIELD DO [facility] 06-07-2023 18:24-0500 Respiratory rate 20 /min JHONY REICHFIELD DO [facility] 06-07-2023 18:24-0500 Systolic Blood Pressure Non-Invasive 145 mm[Hg] JHONY REICHFIELD DO [facility] 05-02-2023 14:56-0500 Body weight 97.98 kg Joni Barraza MD Work Phone: [facility] 05-02-2023 14:56-0500 Diastolic blood pressure 80 mm[Hg] Joni Barraza MD Work Phone: [facility] 05-02-2023 14:56-0500 Systolic blood pressure 128 mm[Hg] Joni Barraza MD Work Phone: [facility] 05-02-2023 08:50-0500 Body weight 97.98 kg Araceli Queener PA-C Work Phone: [facility] 05-02-2023 08:50-0500 Diastolic blood pressure 82 mm[Hg] Araceli Queener PA-C Work Phone: [facility] 05-02-2023 08:50-0500 Heart rate 75 /min Araceli Queener PA-C Work Phone: [facility] 05-02-2023 08:50-0500 Respiratory rate 18 /min Araceli Queener PA-C Work Phone: [facility] 05-02-2023 08:50-0500 SaO2% (BldA) [Mass fraction] 100 % Araceli Torres PA-C Work Phone: [facility] 05-02-2023 08:50-0500 Systolic blood pressure 122 mm[Hg] Araceli Torres PA-C Work Phone: [facility] 04-24-2023 13:23-0500 Body height 157.5 cm Xavier Josue MD Work Phone: [facility] 04-24-2023 13:23-0500 Body weight 98.88 kg Xavier Josue MD Work Phone: [facility] 04-24-2023 13:23-0500 Diastolic blood pressure 82 mm[Hg] Xavier Josue MD Work Phone: [facility] 04-24-2023 13:23-0500 Systolic blood pressure 124 mm[Hg] Xavier Josue MD Work Phone: [facility] 04-21-2023 02:29-0500 Heart rate 75 /min [facility] 04-21-2023 02:29-0500 Respiratory rate 18 /min [facility] 04-21-2023 02:29-0500 SaO2% (BldA) [Mass fraction] 97 % [facility] 04-20-2023 22:50-0500 Body height 154.94 cm [facility] 04-20-2023 22:50-0500 Body mass index (BMI) [Ratio] 41.6 kg/m2 [facility] 04-20-2023 22:50-0500 Body temperature 98.3 [degF] [facility] 04-20-2023 22:50-0500 Body weight 99.93 kg [facility] 04-20-2023 22:50-0500 Diastolic blood pressure 88 mm[Hg] [facility] 04-20-2023 22:50-0500 Systolic blood pressure 136 mm[Hg] [facility] 04-10-2023 16:17-0500 Body height 157.5 cm Xavier Josue MD Work Phone: [facility] 04-10-2023 16:17-0500 Body temperature 97.11 [degF] Xavier Josue MD Work Phone: [facility] 04-10-2023 16:17-0500 Body weight 98.97 kg Xavier Josue MD Work Phone: [facility] 04-10-2023 16:17-0500 Diastolic blood pressure 80 mm[Hg] Xavier Josue MD Work Phone: [facility] 04-10-2023 16:17-0500 Heart rate 112 /min Xavier Josue MD Work Phone: [facility] 04-10-2023 16:17-0500 SaO2% (BldA) [Mass fraction] 99 % Xavier Josue MD Work Phone: [facility] 04-10-2023 16:17-0500 Systolic blood pressure 128 mm[Hg] Xavier Josue MD Work Phone: [facility] 02-25-2023 19:02-0400 Body temperature 98.42 [degF] 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 [facility] 02-25-2023 19:02-0400 Diastolic Blood Pressure Non-Invasive 74 1 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 [facility] 02-25-2023 19:02-0400 Heart rate 74 /min 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 [facility] 02-25-2023 19:02-0400 Reason For Taking VItal Signs 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[employer] [facility] 02-25-2023 19:02-0400 Respiratory rate 16 /min 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[employer] [facility] 02-25-2023 19:02-0400 Systolic Blood Pressure Non-Invasive 111 1 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 [facility] 02-25-2023 16:30-0400 Body temperature 97.88 [degF] KYARA GIRMAITH 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 [facility] 02-25-2023 16:30-0400 Diastolic Blood Pressure Non-Invasive 61 1 KYARALORRAINE RAYOITH 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 [facility] 02-25-2023 16:30-0400 Heart rate 65 /min KYARA RAYOITH 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 [facility] 02-25-2023 16:30-0400 Respiratory rate 20 /min KYARA FOITH 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 [facility] 02-25-2023 16:30-0400 Systolic Blood Pressure Non-Invasive 101 1 KYARALORRAINE RAYOITH 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 [facility] 02-25-2023 12:14-0400 Body temperature 97.88 [degF] KYARA GIRMAITH 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 [facility] 02-25-2023 12:14-0400 Diastolic Blood Pressure Non-Invasive 63 1 KYARA FOITH 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 [facility] 02-25-2023 12:14-0400 Heart rate 65 /min KYARA RAYOITH 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 [facility] 02-25-2023 12:14-0400 Respiratory rate 20 /min KYARA RAYOITH 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 [facility] 02-25-2023 12:14-0400 Systolic Blood Pressure Non-Invasive 101 1 KYARA FOITH 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 [facility] 02-25-2023 08:06-0400 Heart rate 66 /min KYARA FOITH 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 [facility] 02-25-2023 03:39-0400 Heart rate 59 /min KYARA GIRMAITH 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 [facility] 02-25-2023 03:39-0400 Reason For Taking VItal Signs KYARA RAYOITH 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[employer] [facility] 02-24-2023 23:22-0400 Heart rate 66 /min KYARA FOITH 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 [facility] 02-24-2023 23:22-0400 Reason For Taking VItal Signs KYARA RAYOITH 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[employer] [facility] 02-24-2023 07:10-0400 Heart rate 59 /min KYARA FOITH 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 [facility] 02-24-2023 02:49-0400 Heart rate 65 /min KYARA FOITH 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 [facility] 02-23-2023 22:55-0400 Heart rate 61 /min KYARA FOITH 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 [facility] 02-22-2023 02:11-0400 Body height 155 cm KYARA RAYOITH 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 [facility] 02-22-2023 02:11-0400 Body weight 97.9 kg KYARA FOITH 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 [facility] 02-22-2023 02:11-0400 Body weight 40.75 kg/m2 KYARA FOITH 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 [facility] 02-22-2023 01:22-0400 Body height 155 cm KYARA FOITH 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 [facility] 02-22-2023 01:22-0400 Body weight 94.5 kg 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 [facility] 02-22-2023 01:22-0400 Body weight 39.33 kg/m2 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[employer] [facility] 02-21-2023 17:28-0400 Blood Pressure Location 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 [facility] 02-21-2023 17:28-0400 Blood Pressure Method 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 [facility] 02-02-2023 22:55-0400 Diastolic blood pressure 76 mm[Hg] [facility] 02-02-2023 22:55-0400 Heart rate 88 /min [facility] 02-02-2023 22:55-0400 Respiratory rate 16 /min [facility] 02-02-2023 22:55-0400 SaO2% (BldA) [Mass fraction] 97 % [facility] 02-02-2023 22:55-0400 Systolic blood pressure 131 mm[Hg] [facility] 02-02-2023 22:10-0400 Body temperature 99.4 [degF] [facility] 02-02-2023 17:56-0400 Body height 154.94 cm [facility] 01-29-2023 00:53-0400 SaO2% (BldA) [Mass fraction] 97 % [facility] 01-29-2023 00:49-0400 Body mass index (BMI) [Ratio] 42 kg/m2 [facility] 01-29-2023 00:49-0400 Body temperature 97.1 [degF] [facility] 01-29-2023 00:49-0400 Body weight 101 kg [facility] 01-29-2023 00:49-0400 Diastolic blood pressure 82 mm[Hg] [facility] 01-29-2023 00:49-0400 Heart rate 83 /min [facility] 01-29-2023 00:49-0400 Respiratory rate 17 /min [facility] 01-29-2023 00:49-0400 Systolic blood pressure 152 mm[Hg] [facility] 01-04-2023 15:39-0400 Body temperature 97.8 [degF] [facility] 01-04-2023 15:39-0400 Diastolic blood pressure 69 mm[Hg] [facility] 01-04-2023 15:39-0400 Heart rate 77 /min [facility] 01-04-2023 15:39-0400 Respiratory rate 16 /min [facility] 01-04-2023 15:39-0400 SaO2% (BldA) [Mass fraction] 99 % [facility] 01-04-2023 15:39-0400 Systolic blood pressure 126 mm[Hg] [facility] 01-04-2023 14:47-0400 Body height 154.94 cm [facility] 01-04-2023 14:47-0400 Body mass index (BMI) [Ratio] 39.2 kg/m2 [facility] 01-04-2023 14:47-0400 Body weight 94.34 kg [facility] 12-12-2022 21:31-0400 Diastolic blood pressure 60 mm[Hg] Dr. Will Brannon Work Phone: [facility] 12-12-2022 21:31-0400 Heart rate 78 /min Dr. Will Brannon Work Phone: [facility] 12-12-2022 21:31-0400 Respiratory rate 18 /min Dr. Will Brannon Work Phone: [facility] 12-12-2022 21:31-0400 SaO2% (BldA) [Mass fraction] 96 % Dr. Will Brannon Work Phone: [facility] 12-12-2022 21:31-0400 Systolic blood pressure 121 mm[Hg] Dr. Will Brannon Work Phone: [facility] 12-12-2022 18:47-0400 Body mass index (BMI) [Ratio] 39.6 kg/m2 Dr. Will Brannon Work Phone: [facility] 12-12-2022 18:47-0400 Body weight 95.[address] Will Brannon Work Phone: [facility] 12-12-2022 18:46-0400 Body height 154.[address] Will Brannon Work Phone: [facility] 12-12-2022 18:46-0400 Body temperature 97.1 [degF] Dr. Will Brannon Work Phone: [facility] 12-10-2022 02:54-0400 Body temperature 98.24 [degF] CAS PAYNE DO [facility] 12-10-2022 02:54-0400 Diastolic Blood Pressure Non-Invasive 92 1 CAS RAZOKA DO [facility] 12-10-2022 02:54-0400 Respiratory rate 16 /min CAS RAZOKA DO [facility] 12-10-2022 02:54-0400 Systolic Blood Pressure Non-Invasive 128 1 CAS RAZOKA DO [facility] 12-10-2022 00:04-0400 Body height 155 cm CAS RAZOKA DO [facility] 12-10-2022 00:04-0400 Body temperature 98.42 [degF] CAS LAYOESKA DO [facility] 12-10-2022 00:04-0400 Body weight 95.5 kg CAS PAYNE DO [facility] 12-10-2022 00:04-0400 Diastolic Blood Pressure Non-Invasive 86 1 CAS PAYNE DO [facility] 12-10-2022 00:04-0400 Heart rate 98 /min CAS PAYNE DO [facility] 12-10-2022 00:04-0400 Respiratory rate 18 /min CAS PAYNE DO [facility] 12-10-2022 00:04-0400 Systolic Blood Pressure Non-Invasive 126 1 CAS PAYNE DO [facility] 12-02-2022 15:18-0400 Body temperature 97.3 [degF] Cory Box PA-C Work Phone: [facility] 12-02-2022 15:18-0400 Body weight 96.98 kg Cory Box PA-C Work Phone: [facility] 12-02-2022 15:18-0400 Diastolic blood pressure 68 mm[Hg] Cory Box PA-C Work Phone: [facility] 12-02-2022 15:18-0400 Heart rate 94 /min Cory Box PA-C Work Phone: [facility] 12-02-2022 15:18-0400 SaO2% (BldA) [Mass fraction] 96 % Cory Box PA-C Work Phone: [facility] 12-02-2022 15:18-0400 Systolic blood pressure 120 mm[Hg] Cory Box PA-C Work Phone: [facility] 11-22-2022 02:41-0400 Body temperature 98.96 [degF] BRADY DOMINUGEZ MD [facility] 11-22-2022 02:41-0400 Diastolic Blood Pressure Non-Invasive 78 1 BRADY DOMINGUEZ MD [facility] 06-27-2023 02:41-0400 Heart rate 89 /min BRADY DOMINGUEZ MD [facility] 11-22-2022 02:41-0400 Respiratory rate 20 /min BRADY DOMINGUEZ MD [facility] 11-22-2022 02:41-0400 Systolic Blood Pressure Non-Invasive 134 1 BRADY DOMINGUEZ MD [facility] 11-21-2022 23:55-0400 Blood Pressure Cuff Size BRADY DOMINGUEZ MD [facility] 11-21-2022 23:55-0400 Blood Pressure Location BRADY DOMINGUEZ MD [facility] 11-21-2022 23:55-0400 Blood Pressure Method BRADY DOMINGUEZ MD [facility] 11-21-2022 23:55-0400 Body height 155 cm BRADY DOMINGUEZ MD [facility] 11-21-2022 23:55-0400 Body temperature 98.96 [degF] BRADY DOMINGUEZ MD [facility] 11-21-2022 23:55-0400 Body weight 94.1 kg BRADY DOMINGUEZ MD [facility] 11-21-2022 23:55-0400 Diastolic Blood Pressure Non-Invasive 87 1 BRADY DOMINGUEZ MD [facility] 11-21-2022 23:55-0400 Heart rate 90 /min BRADY DOMINGUEZ MD [facility] 11-21-2022 23:55-0400 Respiratory rate 20 /min BRADY DOMINGUEZ MD [facility] 11-21-2022 23:55-0400 Systolic Blood Pressure Non-Invasive 138 1 BRADY DOMINGUEZ MD [facility] 11-18-2022 15:07-0400 Body height 154.9 cm Araseli Renae APRN.[employer]OR [employer] Work Phone: [facility] 11-18-2022 15:07-0400 Body weight 94.35 kg Araseli Renae APRN.DIRECTOR [employer] Work Phone: [facility] 10-15-2022 15:33-0400 Diastolic blood pressure 77 mm[Hg] Dr. Will Brannon Work Phone: [facility] 10-15-2022 15:33-0400 Heart rate 68 /min Dr. Will Brannon Work Phone: [facility] 10-15-2022 15:33-0400 Respiratory rate 15 /min Dr. Will Brannon Work Phone: [facility] 10-15-2022 15:33-0400 SaO2% (BldA) [Mass fraction] 98 % Dr. Will Brannon Work Phone: [facility] 10-15-2022 15:33-0400 Systolic blood pressure 138 mm[Hg] Dr. Will Brannon Work Phone: [facility] 10-15-2022 13:43-0400 Body mass index (BMI) [Ratio] 39.2 kg/m2 Dr. Will Brannon Work Phone: [facility] 10-15-2022 13:43-0400 Body weight 94.[address] Will Brannon Work Phone: [facility] 10-15-2022 12:57-0400 Body temperature 97.4 [degF] Dr. Will Brannon Work Phone: [facility] 10-06-2022 23:39-0400 Diastolic blood pressure 75 mm[Hg] Dr. Will Brannon Work Phone: 0(541)454-272490 [place] [address] 10-06-2022 23:39-0400 Heart rate 62 /min Dr. Will Brannon Work Phone: 4(212)216-900642 [place] [address] 10-06-2022 23:39-0400 Respiratory rate 15 /min Dr. Will Brannon Work Phone: 9(653)648-025242 [place] [address] 10-06-2022 23:39-0400 SaO2% (BldA) [Mass fraction] 97 % Dr. Will Brannon Work Phone: 1(149)686-063542 [place] [address] 10-06-2022 23:39-0400 Systolic blood pressure 134 mm[Hg] Dr. Will Brannon Work Phone: 4(191)264-404442 [place] [address] 10-06-2022 22:36-0400 Body height 154.[address] Will Brannon Work Phone: 7(174)648-037742 [place] [address] 10-06-2022 22:36-0400 Body temperature 98 [degF] Dr. Will Brannon Work Phone: 3(945)660-881742 [place] [address] 09-01-2022 14:52-0400 Body mass index (BMI) [Ratio] 39.1 kg/m2 Dr. Will Brannon Work Phone: 5(574)065-140542 [place] [address] 09-01-2022 14:52-0400 Body temperature 97.8 [degF] Dr. Will Brannon Work Phone: 0(596)576-300342 [place] [address] 09-01-2022 14:52-0400 Body weight 93.[address] Will Brannon Work Phone: 6(419)796-999342 [place] [address] 09-01-2022 14:52-0400 Diastolic blood pressure 81 mm[Hg] Dr. Will Brannon Work Phone: 6(152)779-777942 [place] [address] 09-01-2022 14:52-0400 Heart rate 99 /min Dr. Will Brannon Work Phone: 9(105)719-584342 [place] [address] 09-01-2022 14:52-0400 Respiratory rate 20 /min Dr. Will Brannon Work Phone: 2(110)416-239042 [place] [address] 09-01-2022 14:52-0400 SaO2% (BldA) [Mass fraction] 97 % Dr. Will Brannon Work Phone: 0(581)834-045737 [place] [address] 09-01-2022 14:52-0400 Systolic blood pressure 117 mm[Hg] Dr. Will Brannon Work Phone: 7(163)697-141242 [place] [address] 08-16-2022 14:57-0400 Diastolic blood pressure 71 mm[Hg] Dr. Will Brannon Work Phone: 2(865)837-760337 [place] [address] 08-16-2022 14:57-0400 Heart rate 62 /min Dr. Will Brannon Work Phone: 2(705)932-401442 [place] [address] 08-16-2022 14:57-0400 Respiratory rate 15 /min Dr. Will Brannon Work Phone: 3(399)431-057842 [place] [address] 08-16-2022 14:57-0400 SaO2% (BldA) [Mass fraction] 98 % Dr. Will Brannon Work Phone: 8(447)071-537437 [place] [address] 08-16-2022 14:57-0400 Systolic blood pressure 138 mm[Hg] Dr. Will Brannon Work Phone: 4(387)182-443142 [place] [address] 08-16-2022 14:44-0400 Body temperature 98.4 [degF] Dr. Will Brannon Work Phone: 5(876)223-478603 [address] 08-16-2022 11:48-0400 Body mass index (BMI) [Ratio] 39.2 kg/m2 Dr. Will Brannon Work Phone: 9(633)545-740937 [place] [address] 08-16-2022 11:48-0400 Body weight 94.[address] Will Brannon Work Phone: 0(984)451-167937 [place] [address] 08-16-2022 11:40-0400 Body height 154.[address] Will Brannon Work Phone: [facility] 07-20-2022 10:25-0500 Body height 154.9 cm Farhat Sears MD Work Phone: [facility] 07-20-2022 10:25-0500 Body weight 89.81 kg Farhat Sears MD Work Phone: [facility] 07-20-2022 10:25-0500 Diastolic blood pressure 72 mm[Hg] Farhat Sears MD Work Phone: [facility] 07-20-2022 10:25-0500 Heart rate 70 /min Farhat Sears MD Work Phone: [facility] 07-20-2022 10:25-0500 Systolic blood pressure 103 mm[Hg] Farhat Sears MD Work Phone: [facility] 07-18-2022 14:22-0500 Body temperature 98.5 [degF] Dr. Will Brannon Work Phone: [facility] 07-18-2022 14:22-0500 Diastolic blood pressure 69 mm[Hg] Dr. Will Brannon Work Phone: [facility] 07-18-2022 14:22-0500 Heart rate 65 /min Dr. Will Brannon Work Phone: [facility] 07-18-2022 14:22-0500 Respiratory rate 16 /min Dr. Will Brannon Work Phone: [facility] 07-18-2022 14:22-0500 SaO2% (BldA) [Mass fraction] 99 % Dr. Will Brannon Work Phone: [facility] 07-18-2022 14:22-0500 Systolic blood pressure 112 mm[Hg] Dr. Will Brannon Work Phone: [facility] 07-18-2022 06:00-0500 Body weight 93.[address] Will Brannon Work Phone: [facility] 07-15-2022 12:45-0500 Body height 154.[address] Will Brannon Work Phone: [facility] 07-15-2022 12:45-0500 Body mass index (BMI) [Ratio] 38.2 kg/m2 Dr. Will Brannon Work Phone: [facility] 07-13-2022 04:00-0500 Body temperature 98 [degF] [facility] 07-13-2022 04:00-0500 Diastolic blood pressure 69 mm[Hg] [facility] 07-13-2022 04:00-0500 Heart rate 78 /min [facility] 07-13-2022 04:00-0500 Respiratory rate 18 /min [facility] 07-13-2022 04:00-0500 SaO2% (BldA) [Mass fraction] 95 % [facility] 07-13-2022 04:00-0500 Systolic blood pressure 106 mm[Hg] [facility] 07-12-2022 22:53-0500 Body height 154.94 cm [facility] 07-12-2022 22:53-0500 Body mass index (BMI) [Ratio] 37.4 kg/m2 [facility] 07-12-2022 22:53-0500 Body weight 89.81 kg [facility] 07-04-2022 00:24-0500 Diastolic Blood Pressure Non-Invasive 66 1 DAMIR BLUNT DO [facility] 07-04-2022 00:24-0500 Heart rate 75 /min DAMIR BLUNT DO [facility] 07-04-2022 00:24-0500 Reason For Taking VItal Signs DAMIR BLUNT DO [facility] 07-04-2022 00:24-0500 Respiratory rate 16 /min DAMIR BLUNT DO [facility] 07-04-2022 00:24-0500 Systolic Blood Pressure Non-Invasive 106 1 DAMIR BLUNT DO [facility] 07-03-2022 22:45-0500 Body temperature 99.68 [degF] DAMIR BLUNT DO [facility] 07-03-2022 22:45-0500 Diastolic Blood Pressure Non-Invasive 74 1 DAMIR BLUNT DO [facility] 07-03-2022 22:45-0500 Heart rate 89 /min DAMIR BLUNT DO [facility] 07-03-2022 22:45-0500 Respiratory rate 18 /min DAMIR BLUNT DO [facility] 07-03-2022 22:45-0500 Systolic Blood Pressure Non-Invasive 108 1 DAMIR BLUNT DO [facility] 06-05-2022 10:32-0500 Heart rate 69 /min NADER EARLELY 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 [facility] 06-05-2022 07:35-0500 Body temperature 97.7 [degF] NADER JULIANE 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 [facility] 06-05-2022 07:35-0500 Diastolic Blood Pressure Non-Invasive 75 1 NADER EARLELY 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 [facility] 06-05-2022 07:35-0500 Heart rate 64 /min NADER JULIANE 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 [facility] 06-05-2022 07:35-0500 Reason For Taking VItal Signs NADER EARLELY 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 [facility] 06-05-2022 07:35-0500 Respiratory rate 18 /min NADER JULIANE 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 [facility] 06-05-2022 07:35-0500 Systolic Blood Pressure Non-Invasive 111 1 NADER JULIANE 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 [facility] 06-05-2022 05:34-0500 Body temperature 97.88 [degF] NADER JULIANE 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 [facility] 06-05-2022 05:34-0500 Diastolic Blood Pressure Non-Invasive 80 1 NADER CARDOZO 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 [facility] 06-05-2022 05:34-0500 Heart rate 73 /min NADER CARDOZO 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 [facility] 06-05-2022 05:34-0500 Respiratory rate 18 /min NADER CARDOZO 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 [facility] 06-05-2022 05:34-0500 Systolic Blood Pressure Non-Invasive 126 1 NADER EARLELY 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 [facility] 06-05-2022 01:26-0500 Body temperature 98.42 [degF] NADER CARDOZO 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 [facility] 06-05-2022 01:26-0500 Diastolic Blood Pressure Non-Invasive 79 1 NADER EARLELY 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 [facility] 06-05-2022 01:26-0500 Heart rate 82 /min NADER CARDOZO 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 [facility] 06-05-2022 01:26-0500 Respiratory rate 20 /min NADER EARLELY 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 [facility] 06-05-2022 01:26-0500 Systolic Blood Pressure Non-Invasive 117 1 NADER EARLELY 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 [facility] 06-05-2022 01:25-0500 Body height 155 cm NADER CARDOZO 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 [facility] 06-05-2022 01:25-0500 Body weight 92.2 kg NADER EARLELY 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 [facility] 06-05-2022 01:25-0500 Body weight 38.38 kg/m2 NADER CARDOZO 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 [facility] 06-05-2022 00:39-0500 Heart rate 85 /min NADER CARDOZO 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 [facility] 06-04-2022 22:16-0500 Blood Pressure Location NADER CARDOZO 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 [facility] 06-04-2022 22:16-0500 Blood Pressure Method NADER CARDOZO 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 [facility] 05-15-2022 21:57-0500 Body temperature 97 [degF] [facility] 05-15-2022 21:57-0500 Diastolic blood pressure 99 mm[Hg] [facility] 05-15-2022 21:57-0500 Heart rate 85 /min [facility] 05-15-2022 21:57-0500 Respiratory rate 17 /min [facility] 05-15-2022 21:57-0500 Systolic blood pressure 129 mm[Hg] [facility] 05-15-2022 20:56-0500 SaO2% (BldA) [Mass fraction] 98 % [facility] 05-15-2022 20:53-0500 Body mass index (BMI) [Ratio] 38.5 kg/m2 [facility] 05-15-2022 20:53-0500 Body weight 92.53 kg [facility] 04-27-2022 15:01-0500 Body temperature 97.7 [degF] JERAD GONZALEZ 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[employer] [facility] 04-27-2022 15:01-0500 Diastolic Blood Pressure Non-Invasive 80 1 JERAD NORBERTONIKO 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[employer] [facility] 04-27-2022 15:01-0500 Heart rate 67 /min JERAD GONZALEZ 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[employer] [facility] 04-27-2022 15:01-0500 Reason For Taking VItal Signs JERAD GONZALEZ 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[employer] [facility] 04-27-2022 15:01-0500 Respiratory rate 16 /min JERAD GONZALEZ 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[employer] [facility] 04-27-2022 15:01-0500 Systolic Blood Pressure Non-Invasive 115 1 JERAD OROURKEN 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[employer] [facility] 04-27-2022 11:52-0500 Body temperature 97.52 [degF] JERADANASTASIA OROURKEN 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[employer] [facility] 04-27-2022 11:52-0500 Diastolic Blood Pressure Non-Invasive 72 1 JERAD GONZALEZ 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[employer] [facility] 04-27-2022 11:52-0500 Heart rate 62 /min JERAD GONZALEZ 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[employer] [facility] 04-27-2022 11:52-0500 Reason For Taking VItal Signs JERAD GONZALEZ 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[employer] [facility] 04-27-2022 11:52-0500 Respiratory rate 18 /min JERAD GONZALEZ 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[employer] [facility] 04-27-2022 11:52-0500 Systolic Blood Pressure Non-Invasive 105 1 JERAD OROURKEN 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[employer] [facility] 04-27-2022 07:37-0500 Body temperature 97.88 [degF] JERAD OROURKEN 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[employer] [facility] 04-27-2022 07:37-0500 Diastolic Blood Pressure Non-Invasive 78 1 JERAD GONZALEZ 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[employer] [facility] 04-27-2022 07:37-0500 Heart rate 56 /min JERAD GONZALEZ 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[employer] [facility] 04-27-2022 07:37-0500 Reason For Taking VItal Signs JERAD GONZALEZ 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[employer] [facility] 04-27-2022 07:37-0500 Respiratory rate 18 /min JERAD GONZALEZ 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[employer] [facility] 04-27-2022 07:37-0500 Systolic Blood Pressure Non-Invasive 114 1 JERAD OROURKEN 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[employer] [facility] 04-26-2022 14:39-0500 Heart rate 62 /min JERAD OROURKEN 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[employer] [facility] 04-26-2022 10:27-0500 Heart rate 63 /min JERAD GONZALEZ 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[employer] [facility] 04-26-2022 06:59-0500 Heart rate 67 /min JERAD GONZALEZ 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[employer] [facility] 04-24-2022 05:33-0500 Body height 154.94 cm JERAD GONZALEZ 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[employer] [facility] 04-24-2022 05:33-0500 Body weight 92.4 kg JERAD GONZALEZ 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[employer] [facility] 04-24-2022 05:33-0500 Body weight 38.49 kg/m2 JERAD OROURKEN 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[employer] [facility] 04-24-2022 03:47-0500 Blood Pressure Location JERADANASTASIA THORNTONNEN 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[employer] [facility] 04-24-2022 03:47-0500 Blood Pressure Method JERAD NORBERTONEN 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[employer] [facility] 04-24-2022 03:47-0500 Body height 154.94 cm JERADANASTASIA THORNTONNEN 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[employer] [facility] 04-24-2022 03:47-0500 Body weight 92.4 kg JERADANASTASIA THORNTONNEN 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[employer] [facility] 04-24-2022 03:21-0500 Heart rate 79 /min JERAD NORBERTONEN 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[employer] [facility] 04-24-2022 02:52-0500 Heart rate 83 /min JERADANASTASIA THORNTONNEN 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[employer] [facility] 04-24-2022 01:26-0500 Heart rate 84 /min JERADANASTASIA THORNTONNEN 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[employer] [facility] 04-24-2022 00:07-0500 Blood Pressure Location JERADANASTASIA OROURKEN 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[employer] [facility] 04-24-2022 00:07-0500 Blood Pressure Method JERADANASTASIA THORNTONNEN 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[employer] [facility] 04-24-2022 00:07-0500 Body height 155 cm JERADANASTASIA THORNTONNEN 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[employer] [facility] 04-24-2022 00:07-0500 Body weight 90.9 kg JERADANASTASIA OROURKEN 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[employer] [facility] 04-11-2022 02:44-0500 Diastolic blood pressure 67 mm[Hg] [facility] 04-11-2022 02:44-0500 Heart rate 74 /min [facility] 04-11-2022 02:44-0500 Respiratory rate 16 /min [facility] 04-11-2022 02:44-0500 SaO2% (BldA) [Mass fraction] 98 % [facility] 04-11-2022 02:44-0500 Systolic blood pressure 102 mm[Hg] [facility] 04-10-2022 23:56-0500 Body mass index (BMI) [Ratio] 38.7 kg/m2 [facility] 04-10-2022 23:56-0500 Body temperature 98.3 [degF] [facility] 04-10-2022 23:56-0500 Body weight 92.9 kg [facility] 03-22-2022 17:18-0400 Body height [address] ELIZABETH PERALTA MD [facility] 03-22-2022 17:18-0400 Body temperature 98.78 [degF] DR ELIZABETH PERALTA MD [facility] 03-22-2022 17:18-0400 Body weight [address] ELIZABETH PERALTA MD [facility] 03-22-2022 17:18-0400 Diastolic blood pressure 90 mm[Hg] DR ELIZABETH PERALTA MD [facility] 03-22-2022 17:18-0400 Heart rate 84 /min DR ELIZABETH PERALTA MD [facility] 03-22-2022 17:18-0400 Respiratory rate 16 /min DR ELIZABETH PERALTA MD [facility] 03-22-2022 17:18-0400 Systolic blood pressure 146 mm[Hg] DR ELIZABETH PERALTA MD [facility] 03-22-2022 03:29-0400 Diastolic blood pressure 74 mm[Hg] [facility] 03-22-2022 03:29-0400 Heart rate 78 /min [facility] 03-22-2022 03:29-0400 Respiratory rate 17 /min [facility] 03-22-2022 03:29-0400 SaO2% (BldA) [Mass fraction] 98 % [facility] 03-22-2022 03:29-0400 Systolic blood pressure 134 mm[Hg] [facility] 03-22-2022 00:10-0400 Body mass index (BMI) [Ratio] 36.3 kg/m2 [facility] 03-22-2022 00:10-0400 Body temperature 97.3 [degF] [facility] 03-22-2022 00:10-0400 Body weight 90.3 kg [facility] 02-28-2022 14:47-0400 Body temperature 99.39 [degF] Tulio Pompa MD Work Phone: [facility] 02-28-2022 14:47-0400 Body weight 92.26 kg Tulio Pompa MD Work Phone: [facility] 02-28-2022 14:47-0400 Diastolic blood pressure 80 mm[Hg] Tulio Pompa MD Work Phone: [facility] 02-28-2022 14:47-0400 Heart rate 102 /min Tulio Pompa MD Work Phone: [facility] 02-28-2022 14:47-0400 Respiratory rate 21 /min Tulio Pompa MD Work Phone: [facility] 02-28-2022 14:47-0400 SaO2% (BldA) [Mass fraction] 98 % Tulio Pompa MD Work Phone: [facility] 02-28-2022 14:47-0400 Systolic blood pressure 138 mm[Hg] Tulio Pompa MD Work Phone: [facility] 02-22-2022 14:50-0400 Body height 154.9 cm Xavier Josue MD Work Phone: [facility] 02-22-2022 14:50-0400 Body temperature 97.5 [degF] Xavier Josue MD Work Phone: [facility] 02-22-2022 14:50-0400 Body weight 93.89 kg Xavier Josue MD Work Phone: [facility] 02-22-2022 14:50-0400 Diastolic blood pressure 70 mm[Hg] Xavier Josue MD Work Phone: [facility] 02-22-2022 14:50-0400 Heart rate 108 /min Xavier Josue MD Work Phone: [facility] 02-22-2022 14:50-0400 SaO2% (BldA) [Mass fraction] 98 % Xavier Josue MD Work Phone: [facility] 02-22-2022 14:50-0400 Systolic blood pressure 108 mm[Hg] Xavier Josue MD Work Phone: [facility] 02-16-2022 15:01-0400 Body height 154.9 cm Fawn Herrera MD Work Phone: [facility] 02-16-2022 15:01-0400 Body temperature 96.91 [degF] Fawn Herrera MD Work Phone: [facility] 02-16-2022 15:01-0400 Body weight 94.17 kg Fawn Herrera MD Work Phone: [facility] 02-16-2022 15:01-0400 Diastolic blood pressure 72 mm[Hg] Fawn Herrera MD Work Phone: [facility] 02-16-2022 15:01-0400 Heart rate 101 /min Fawn Herrera MD Work Phone: [facility] 02-16-2022 15:01-0400 SaO2% (BldA) [Mass fraction] 98 % Fawn Herrera MD Work Phone: [facility] 02-16-2022 15:01-0400 Systolic blood pressure 102 mm[Hg] Fawn Herrera MD Work Phone: [facility] 02-15-2022 17:22-0400 Body height 155 cm CAS DURESKA DO [facility] 02-15-2022 17:22-0400 Body temperature 96.98 [degF] CAS DURESKA DO [facility] 02-15-2022 17:22-0400 Body weight 92.5 kg CAS DURESKA DO [facility] 02-15-2022 17:22-0400 Diastolic blood pressure 71 mm[Hg] CAS DURESKA DO [facility] 02-15-2022 17:22-0400 Heart rate 97 /min CAS LAYOESKA DO [facility] 02-15-2022 17:22-0400 Respiratory rate 20 /min CAS DURESKA DO [facility] 02-15-2022 17:22-0400 Systolic blood pressure 103 mm[Hg] CAS DURESKA DO [facility] 02-09-2022 12:23-0400 Body temperature 97.5 [degF] Netta SAWANT-C Work Phone: [facility] 02-09-2022 12:23-0400 Body weight 92.08 kg Netta SAWANT-C Work Phone: [facility] 02-09-2022 12:23-0400 Diastolic blood pressure 72 mm[Hg] Netta SAWANT-C Work Phone: [facility] 02-09-2022 12:23-0400 Heart rate 72 /min Netta SAWANT-C Work Phone: [facility] 02-09-2022 12:23-0400 Respiratory rate 18 /min Netta SAWANT-C Work Phone: [facility] 02-09-2022 12:23-0400 Systolic blood pressure 102 mm[Hg] Netta SAWANT-C Work Phone: [facility] 12-09-2021 09:36-0400 Body height 154.9 cm Too Parker MD Work Phone: [facility] 12-09-2021 09:36-0400 Body temperature 97.5 [degF] Too Parker MD Work Phone: [facility] 12-09-2021 09:36-0400 Body weight 91.63 kg Too Parker MD Work Phone: [facility] 12-09-2021 09:36-0400 Diastolic blood pressure 65 mm[Hg] Too Parker MD Work Phone: [facility] 12-09-2021 09:36-0400 Heart rate 79 /min Too Parker MD Work Phone: [facility] 12-09-2021 09:36-0400 Respiratory rate 18 /min Too Parker MD Work Phone: [facility] 12-09-2021 09:36-0400 SaO2% (BldA) [Mass fraction] 98 % Too Parker MD Work Phone: [facility] 12-09-2021 09:36-0400 Systolic blood pressure 97 mm[Hg] Too Parker MD Work Phone: [facility] 12-03-2021 15:22-0400 Body height 154.9 cm Cory Box PA-C Work Phone: [facility] 12-03-2021 15:22-0400 Body temperature 97.3 [degF] Cory Box PA-C Work Phone: [facility] 12-03-2021 15:22-0400 Body weight 91.17 kg Cory Box PA-C Work Phone: [facility] 12-03-2021 15:22-0400 Diastolic blood pressure 80 mm[Hg] Cory Box PA-C Work Phone: [facility] 12-03-2021 15:22-0400 Heart rate 98 /min Cory Box PA-C Work Phone: [facility] 12-03-2021 15:22-0400 Respiratory rate 14 /min Cory Box PA-C Work Phone: [facility] 12-03-2021 15:22-0400 SaO2% (BldA) [Mass fraction] 100 % Cory Box PA-C Work Phone: [facility] 12-03-2021 15:22-0400 Systolic blood pressure 108 mm[Hg] Cory Box PA-C Work Phone: [facility] 11-26-2021 15:04-0400 Diastolic blood pressure 80 mm[Hg] Dr. Will Brannon Work Phone: [facility] Work Phone: 11-26-2021 15:04-0400 Heart rate 89 /min Dr. Will Brannon Work Phone: [facility] Work Phone: 11-26-2021 15:04-0400 Respiratory rate 16 /min Dr. Will Brannon Work Phone: [facility] Work Phone: 11-26-2021 15:04-0400 SaO2% (BldA) [Mass fraction] 99 % Dr. Will Brannon Work Phone: [facility] Work Phone: 11-26-2021 15:04-0400 Systolic blood pressure 126 mm[Hg] Dr. Will Brannon Work Phone: [facility] Work Phone: 11-26-2021 12:44-0400 Body height 154.[address] Will Brannon Work Phone: [facility] Work Phone: 11-26-2021 12:44-0400 Body mass index (BMI) [Ratio] 37.5 kg/m2 Dr. Will Brannon Work Phone: [facility] Work Phone: 11-26-2021 12:44-0400 Body temperature 97.4 [degF] Dr. Will Brannon Work Phone: [facility] Work Phone: 11-26-2021 12:44-0400 Body weight [address] Will Brannon Work Phone: [facility] Work Phone: 11-22-2021 13:54-0400 Body temperature 98.2 [degF] Dr. Will Brannon Work Phone: [facility] Work Phone: 11-22-2021 13:54-0400 Diastolic blood pressure 74 mm[Hg] Dr. Will Brannon Work Phone: [facility] Work Phone: 11-22-2021 13:54-0400 Heart rate 65 /min Dr. Will Brannon Work Phone: [facility] Work Phone: 11-22-2021 13:54-0400 Respiratory rate 16 /min Dr. Will Brannon Work Phone: [facility] Work Phone: 11-22-2021 13:54-0400 SaO2% (BldA) [Mass fraction] 96 % Dr. Will Brannon Work Phone: [facility] Work Phone: 11-22-2021 13:54-0400 Systolic blood pressure 109 mm[Hg] Dr. Will Brannon Work Phone: [facility] Work Phone: 11-21-2021 12:14-0400 Body weight 92.[address] Will Brannon Work Phone: [facility] Work Phone: 11-21-2021 02:09-0400 Body mass index (BMI) [Ratio] 38.5 kg/m2 Dr. Will Brannon Work Phone: [facility] Work Phone: 11-21-2021 01:49-0400 Body temperature 99 [degF] Dr. Will Brannon Work Phone: [facility] Work Phone: 11-21-2021 01:49-0400 Diastolic blood pressure 66 mm[Hg] Dr. Will Brannon Work Phone: [facility] Work Phone: 11-21-2021 01:49-0400 Heart rate 85 /min Dr. Will Brannon Work Phone: [facility] Work Phone: 11-21-2021 01:49-0400 Respiratory rate 20 /min Dr. Will Brannon Work Phone: [facility] Work Phone: 11-21-2021 01:49-0400 SaO2% (BldA) [Mass fraction] 96 % Dr. Will Brannon Work Phone: [facility] Work Phone: 11-21-2021 01:49-0400 Systolic blood pressure 111 mm[Hg] Dr. Will Brannon Work Phone: [facility] Work Phone: 11-20-2021 22:46-0400 Body height 154.[address] Will Brannon Work Phone: [facility] Work Phone: 11-20-2021 22:46-0400 Body mass index (BMI) [Ratio] 39.2 kg/m2 Dr. Will Brannon Work Phone: [facility] Work Phone: 11-20-2021 22:46-0400 Body weight 94.[address] Will Brannon Work Phone: [facility] Work Phone: 11-14-2021 23:08-0400 Body height 154.94 cm [facility] Work Phone: 11-14-2021 23:08-0400 Body mass index (BMI) [Ratio] 39.2 kg/m2 [facility] Work Phone: 11-14-2021 23:08-0400 Body temperature 95.1 [degF] [facility] Work Phone: 11-14-2021 23:08-0400 Body weight 94.34 kg [facility] Work Phone: 11-14-2021 23:08-0400 Diastolic blood pressure 80 mm[Hg] [facility] Work Phone: 11-14-2021 23:08-0400 Heart rate 91 /min [facility] Work Phone: 11-14-2021 23:08-0400 Respiratory rate 16 /min [facility] Work Phone: 11-14-2021 23:08-0400 SaO2% (BldA) [Mass fraction] 99 % [facility] Work Phone: 11-14-2021 23:08-0400 Systolic blood pressure 123 mm[Hg] [facility] Work Phone: 11-05-2021 03:26-0400 Diastolic blood pressure 73 mm[Hg] [facility] Work Phone: 11-05-2021 03:26-0400 Heart rate 81 /min [facility] Work Phone: 11-05-2021 03:26-0400 Respiratory rate 16 /min [facility] Work Phone: 11-05-2021 03:26-0400 SaO2% (BldA) [Mass fraction] 100 % [facility] Work Phone: 11-05-2021 03:26-0400 Systolic blood pressure 112 mm[Hg] [facility] Work Phone: 11-04-2021 23:46-0400 Body height 154.94 cm [facility] Work Phone: 11-04-2021 23:46-0400 Body mass index (BMI) [Ratio] 39.2 kg/m2 [facility] Work Phone: 11-04-2021 23:46-0400 Body temperature 98.6 [degF] [facility] Work Phone: 11-04-2021 23:46-0400 Body weight 94.34 kg [facility] Work Phone: 10-27-2021 13:54-0400 Body height 154.9 cm Sandra Maribel DO Work Phone: [facility] 10-27-2021 13:54-0400 Body weight 94.35 kg Sandra Maribel DO Work Phone: [facility] 09-22-2021 08:38-0400 Body height 154.9 cm Pacc 2 Work Phone: [facility] 09-22-2021 08:38-0400 Body temperature 97.7 [degF] Pacc 2 Work Phone: [facility] 09-22-2021 08:38-0400 Body weight 98.97 kg Pacc 2 Work Phone: [facility] 09-22-2021 08:38-0400 Diastolic blood pressure 76 mm[Hg] Pacc 2 Work Phone: [facility] 09-22-2021 08:38-0400 Heart rate 73 /min Pacc 2 Work Phone: [facility] 09-22-2021 08:38-0400 SaO2% (BldA) [Mass fraction] 97 % Pac 2 Work Phone: [facility] 09-22-2021 08:38-0400 Systolic blood pressure 142 mm[Hg] Pac 2 Work Phone: [facility] 09-17-2021 17:07-0400 Heart rate 88 /min [facility] Work Phone: 09-17-2021 17:07-0400 Respiratory rate 17 /min [facility] Work Phone: 09-17-2021 17:07-0400 SaO2% (BldA) [Mass fraction] 99 % [facility] Work Phone: 09-17-2021 14:28-0400 Body height 152.4 cm [facility] Work Phone: 09-17-2021 14:28-0400 Body mass index (BMI) [Ratio] 42.8 kg/m2 [facility] Work Phone: 09-17-2021 14:28-0400 Body temperature 97.7 [degF] [facility] Work Phone: 09-17-2021 14:28-0400 Body weight 99.5 kg [facility] Work Phone: 09-17-2021 14:28-0400 Diastolic blood pressure 96 mm[Hg] [facility] Work Phone: 09-17-2021 14:28-0400 Systolic blood pressure 133 mm[Hg] [facility] Work Phone: 08-26-2021 15:32-0400 Body temperature 97.2 [degF] Jaimee Carbajal [employer] Work Phone: [facility] 08-26-2021 15:32-0400 Body weight 99.79 kg Jaimee Carbajal SL[employer] MAKER.DIRECT[employer] Work Phone: [facility] 08-26-2021 15:32-0400 Diastolic blood pressure 82 mm[Hg] Jaimee Dahlhausen SL[employer] MAKER.DIRECT[employer] Work Phone: [facility] 08-26-2021 15:32-0400 Heart rate 76 /min Jaimee Dahlhausen SLIP MAKER.[facility] Work Phone: [facility] 08-26-2021 15:32-0400 Respiratory rate 18 /min Jaimee Dahlhausen SLIP MAKER.DIRECT[employer] Work Phone: [facility] 08-26-2021 15:32-0400 SaO2% (BldA) [Mass fraction] 96 % Jaimee Dahlhausen SL[employer] MAKER.[employer] Work Phone: [facility] 08-26-2021 15:32-0400 Systolic blood pressure 98 mm[Hg] Jaimee Dahlhausen SLIP MAKER.[facility] Work Phone: [facility] 08-20-2021 06:14-0400 Diastolic blood pressure 79 mm[Hg] [facility] Work Phone: 08-20-2021 06:14-0400 Heart rate 85 /min [facility] Work Phone: 08-20-2021 06:14-0400 Respiratory rate 18 /min [facility] Work Phone: 08-20-2021 06:14-0400 SaO2% (BldA) [Mass fraction] 100 % [facility] Work Phone: 08-20-2021 06:14-0400 Systolic blood pressure 122 mm[Hg] [facility] Work Phone: 08-20-2021 03:58-0400 Body mass index (BMI) [Ratio] 41.5 kg/m2 [facility] Work Phone: 08-20-2021 03:58-0400 Body temperature 98.6 [degF] [facility] Work Phone: 08-20-2021 03:58-0400 Body weight 99.79 kg [facility] Work Phone: 07-07-2021 21:53-0500 Body mass index (BMI) [Ratio] 42.5 kg/m2 [facility] Work Phone: 07-07-2021 21:53-0500 Body weight 102.05 kg [facility] Work Phone: 07-07-2021 21:25-0500 Body temperature 97.1 [degF] [facility] Work Phone: 07-07-2021 21:25-0500 Diastolic blood pressure 97 mm[Hg] [facility] Work Phone: 07-07-2021 21:25-0500 Heart rate 83 /min [facility] Work Phone: 07-07-2021 21:25-0500 Respiratory rate 16 /min [facility] Work Phone: 07-07-2021 21:25-0500 SaO2% (BldA) [Mass fraction] 97 % [facility] Work Phone: 07-07-2021 21:25-0500 Systolic blood pressure 129 mm[Hg] [facility] Work Phone: 06-30-2021 21:28-0500 Body mass index (BMI) [Ratio] 42.5 kg/m2 [facility] Work Phone: 06-30-2021 21:28-0500 Body temperature 97.8 [degF] [facility] Work Phone: 06-30-2021 21:28-0500 Body weight 102.05 kg [facility] Work Phone: 06-30-2021 21:28-0500 Diastolic blood pressure 108 mm[Hg] [facility] Work Phone: 06-30-2021 21:28-0500 Heart rate 103 /min [facility] Work Phone: 06-30-2021 21:28-0500 Respiratory rate 16 /min [facility] Work Phone: 06-30-2021 21:28-0500 SaO2% (BldA) [Mass fraction] 100 % [facility] Work Phone: 06-30-2021 21:28-0500 Systolic blood pressure 152 mm[Hg] [facility] Work Phone: 06-28-2021 12:59-0500 Heart rate 89 /min [facility] Work Phone: 06-28-2021 12:59-0500 Respiratory rate 15 /min [facility] Work Phone: 06-28-2021 12:59-0500 SaO2% (BldA) [Mass fraction] 99 % [facility] Work Phone: 06-28-2021 11:34-0500 Body mass index (BMI) [Ratio] 42.7 kg/m2 [facility] Work Phone: 06-28-2021 11:34-0500 Body temperature 97.8 [degF] [facility] Work Phone: 06-28-2021 11:34-0500 Body weight 102.5 kg [facility] Work Phone: 06-28-2021 11:34-0500 Diastolic blood pressure 95 mm[Hg] [facility] Work Phone: 06-28-2021 11:34-0500 Systolic blood pressure 136 mm[Hg] [facility] Work Phone: 06-28-2021 00:29-0500 Heart rate 88 /min [facility] Work Phone: 06-28-2021 00:29-0500 Respiratory rate 18 /min [facility] Work Phone: 06-28-2021 00:29-0500 SaO2% (BldA) [Mass fraction] 98 % [facility] Work Phone: 06-27-2021 22:21-0500 Body mass index (BMI) [Ratio] 43 kg/m2 [facility] Work Phone: 06-27-2021 22:21-0500 Body temperature 98.8 [degF] [facility] Work Phone: 06-27-2021 22:21-0500 Body weight 103.4 kg [facility] Work Phone: 06-27-2021 22:21-0500 Diastolic blood pressure 92 mm[Hg] [facility] Work Phone: 06-27-2021 22:21-0500 Systolic blood pressure 156 mm[Hg] [facility] Work Phone: 06-04-2021 00:19-0500 Respiratory rate 18 /min [facility] Work Phone: 06-03-2021 23:15-0500 Body temperature 98.4 [degF] [facility] Work Phone: 06-03-2021 23:15-0500 Diastolic blood pressure 84 mm[Hg] [facility] Work Phone: 06-03-2021 23:15-0500 Heart rate 92 /min [facility] Work Phone: 06-03-2021 23:15-0500 SaO2% (BldA) [Mass fraction] 99 % [facility] Work Phone: 06-03-2021 23:15-0500 Systolic blood pressure 135 mm[Hg] [facility] Work Phone: 06-03-2021 21:47-0500 Body mass index (BMI) [Ratio] 42.5 kg/m2 [facility] Work Phone: 06-03-2021 21:47-0500 Body weight 102.05 kg [facility] Work Phone: 04-28-2021 23:35-0500 Diastolic blood pressure 70 mm[Hg] DR DANIELA VARGAS MD [facility] 04-28-2021 23:35-0500 Heart rate 86 /min DR DAINELA VARGAS MD [facility] 04-28-2021 23:35-0500 Respiratory rate 18 /min DR DANIELA VARGAS MD [facility] 04-28-2021 23:35-0500 Systolic blood pressure 120 mm[Hg] DR DANIELA VARGAS MD [facility] 04-28-2021 20:48-0500 Body height 157.[address] DANIELA VARGAS MD [facility] 04-28-2021 20:48-0500 Body temperature 98.96 [degF] DR DANIELA VARGAS MD [facility] 04-28-2021 20:48-0500 Body weight 102.[address] DANIELA VARGAS MD [facility] 04-28-2021 20:48-0500 Diastolic blood pressure 77 mm[Hg] DR DANIELA VARGAS MD [facility] 04-28-2021 20:48-0500 Heart rate 90 /min DR DANIELA VARGAS MD [facility] 04-28-2021 20:48-0500 Respiratory rate 20 /min DR DANIELA VARGAS MD [facility] 04-28-2021 20:48-0500 Systolic blood pressure 123 mm[Hg] DR DANIELA VARGAS MD [facility] Encounters Encounter Date Encounter Type Care Provider Facility Start: 04-08-2025 End: 04-08-2025 ambulatory WILL BRANNON Facility:[facility] Start: 04-06-2025 End: 04-06-2025 Emergency department patient visit DR SUSAN LEON MD [facility] Start: 04-05-2025 End: 04-05-2025 Emergency department patient visit Xavier Sanderson Facility:[facility] Start: 03-26-2025 End: 03-26-2025 ambulatory NILDA UNDERWOOD Facility:[facility] Start: 03-21-2025 End: 03-21-2025 ambulatory WILL BRANNON Facility:[facility] Start: 03-09-2025 End: 03-09-2025 Emergency department patient visit Alexander Hooks DO -Emergency Department Work Phone: Start: 03-08-2025 End: 03-09-2025 Emergency department patient visit Dr. Andre Sue DO -Emergency Department Work Phone: Start: 02-11-2025 End: 02-11-2025 Nursing evaluation of patient and report Nurse [facility] Work Phone: Urology Comment on above: Neurogenic bladder ( Primary Dx) Start: 02-11-2025 End: 02-11-2025 ambulatory WILL BRANNON Facility:[facility] Start: 02-04-2025 End: 02-07-2025 ambulatory Will Brannon MD Work Phone: Internal Medicine [facility] Start: 01-29-2025 End: 01-30-2025 Emergency department patient visit LUDWIG MAYER DO [facility] Start: 01-28-2025 End: 01-31-2025 ambulatory Will Brannon MD Work Phone: Internal Medicine [place] [id number] Start: 01-24-2025 End: 01-24-2025 ambulatory WILL BRANNON Facility:[facility] Start: 01-24-2025 End: 01-24-2025 Ophthalmic examination and evaluation Will Brannon MD Work Phone: [facility] Start: 01-24-2025 End: 01-24-2025 Patient encounter procedure Will Brannon MD Work Phone: Family Medicine [place] Comment on above: Medicare annual well ness visit, subsequent (Primary Dx); Diabetes mellitus with peripheral vascular disease (HCC); 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); 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); Diabetic eye exam (HCC); Essential hypertension; Mixed hyperlipidemia; Migraine without aura and without status migrainosus, not intractable; Bilateral leg edema; Neuropathy; Paroxysmal SVT (supraventricular tachycardia) (HCC); Thyroid cyst; Gastroesophageal reflux disease with esophagitis without hemorrhage; Anxiety and depression; Dysthymic disorder; Major depressive disorder, recurrent, mild; Panic attacks; Primary insomnia; Hypomagnesemia; Hyponatremia; Fatty liver; Lipomeningocele (HCC); Morbid obesity with BMI of 40.0-44.9, adult (HCC); Spina bifida, unspecified hydrocephalus presence, unspecified spinal region (HCC); Neurogenic bladder; Neurogenic bowel; Colostomy in place (HCC); Encounter for care or replacement of suprapubic tube (HCC); Seasonal allergic rhinitis, unspecified trigger; Need for vaccination; Medication management; History of amputation of great toe (HCC) Start: 01-24-2025 End: 01-24-2025 ambulatory WILL BRANNON Facility:[facility] Start: 01-07-2025 End: 01-07-2025 Emergency department patient visit DR ELMIRA FOSS DO [facility] Start: 12-31-2024 End: 12-31-2024 ambulatory WILL BRANNON Facility:[facility] Start: 12-19-2024 End: 01-20-2025 ambulatory Nasrin Moreno MA [facility] Start: 12-19-2024 End: 01-20-2025 Patient encounter procedure Nasrin Moreno MA [facility] Comment on above: Population Health Na vigation Outreach ([place]/Workbench/ACO ) Start: 12-14-2024 End: 12-14-2024 Emergency department patient visit DR ELMIRA FOSS DO [facility] Start: 12-06-2024 End: 12-06-2024 Telephone encounter Cory Box [facility] Work Phone: Urology Comment on above: Orders Start: 12-03-2024 End: 12-03-2024 Patient encounter procedure Cory Box [place] Work Phone: Urology Comment on above: Neurogenic bladder; Suprapubic catheter (HCC); Type 2 diabetes mellitus without complication, unspecified whether half-way insulin use (HCC) Start: 12-03-2024 End: 12-03-2024 ambulatory CORY BOX Facility:[facility] Start: 11-20-2024 End: 11-20-2024 Chart abstracting Will Brannon MD Work Phone: [facility] Comment on above: Received Outside Med [facility] Records ([facility] ED visit, without admission) Start: 11-19-2024 End: 11-20-2024 Dr. Will Brannon MD Work Phone: -Emergency Department Work Phone: Start: 11-19-2024 End: 11-20-2024 Emergency department patient visit Dr. Will Brannon MD Work Phone: [facility] Work Phone: Start: 11-19-2024 End: 11-19-2024 ambulatory Nasrin Moreno MA [facility] Start: 11-19-2024 End: 11-19-2024 Patient encounter procedure Nasrin Moreno MA [facility] Comment on above: Population Health Na vigation Outreach ([place]/Workbench/ACO ) Start: 2024 End: 2024 Telephone encounter Cory Box PA-C Work Phone: Urology Comment on above: Appointment Start: 10-14-2024 End: 10-14-2024 ambulatory Nasrin Moreno MA [facility] Start: 10-14-2024 End: 10-14-2024 Patient encounter procedure Nasrin Moreno MA [facility] Comment on above: Population Health Na vigation Outreach ([place]/Workbench/ACO ) Start: 10-08-2024 End: 10-08-2024 Nursing evaluation of patient and report Nurse [facility] Work Phone: Urology Comment on above: Neurogenic bladder ( Primary Dx) Start: 10-08-2024 End: 10-08-2024 ambulatory WILL BRANNON Facility:[facility] Start: 10-04-2024 End: 10-07-2024 Orders Only Cory Box PA-C Work Phone: Urology Comment on above: Neurogenic bladder ( Primary Dx) Start: 09-09-2024 ambulatory Will Brannon Facility :[facility] Start: [facility] Start: 09-03-2024 ambulatory Will Brannon Facility :[facility] Start: [facility]-03[facility] Start: 09-02-2024 ambulatory Will Brannon Facility :[facility] Start: 09-02-2024 [facility] Start: 08-29-2024 End: 08-29-2024 ambulatory NILDA AYALAOCE Facility:[facility] Start: 08-26-2024 ambulatory Will Vazquez Facility :[facility] Start: 08-26-2024 [facility] Start: 08-19-2024 ambulatory Will Brannon Facility :[facility] Start: 08-19-2024 [facility] Start: 08-16-2024 End: 08-16-2024 Chart abstracting Will Brannon MD Work Phone: [facility] Comment on above: Outside Ortho Proced ure Start: 08-16-2024 Dr. Quynh washington [facility] Work Phone: Start: 08-15-2024 Dr. Quynh washington [facility] Work Phone: Start: 08-14-2024 End: 08-14-2024 Chart abstracting Will Brannon MD Work Phone: [facility] Comment on above: Outside Infectious D isease Start: 08-14-2024 Dr. Quynh washington [facility] Work Phone: Start: 08-13-2024 Dr. Quynh washington [facility] Work Phone: Start: 08-12-2024 Dr. Quynh washington [facility] Work Phone: Start: 08-12-2024 End: 08-12-2024 Chart abstracting Will Brannon MD Work Phone: [facility] Comment on above: ER Discharge Summary Start: 08-11-2024 ambulatory Ramana Mejia ty:[facility] Start: 08-11-2024 End: 08-16-2024 Evaluation and management of inpatient Dr. Will Brannon MD Work Phone: [facility] Work Phone: Start: 08-11-2024 End: 08-16-2024 Dr. Ramana Rose DO [facility] Work Phone: Start: 08-01-2024 End: 08-01-2024 Chart abstracting Will Brannon MD Work Phone: [facility] Comment on above: ER Discharge Summary Start: 07-31-2024 End: 07-31-2024 Dr. Will Brannon MD Work Phone: -Emergency Department Work Phone: Start: 07-31-2024 End: 07-31-2024 Emergency department patient visit Ron Hernandez Facility:[facility] Start: 07-16-2024 End: 07-16-2024 ambulatory WILL BRANNON Facility:[facility] Start: 07-16-2024 End: 07-16-2024 Nursing evaluation of patient and report Nurse [facility] Work Phone: Urology Comment on above: Neurogenic bladder ( Primary Dx) Start: 07-11-2024 End: 07-11-2024 Dr. Dre Deal MD -Emergency Departmen t Work Phone: Start: 07-11-2024 End: 07-11-2024 Emergency department patient visit Dre Deal Facility:[facility] Start: 07-11-2024 End: 07-11-2024 Patient encounter procedure Devin George APRN.DIRECTOR [employer] Work Phone: [facility] [place] Comment on above: Migraine without aur a and without status migrainosus, not intractable (Primary Dx) Start: 07-11-2024 End: 07-11-2024 ambulatory DEVIN GEORGE Facility:[facility] Start: 07-09-2024 End: 07-09-2024 Patient encounter procedure Araceli Torres PA-C Work Phone: Neurology Comment on above: Intractable chronic migraine with aura and without status migrainosus (Primary Dx); Neuropathy; Paresthesias; Spina bifida, unspecified hydrocephalus presence, unspecified spinal region (HCC); Cervical vertebral fusion Start: 07-09-2024 End: 07-09-2024 ambulatory ARACELI TORRES Facility:[facility] Start: 06-26-2024 End: 06-28-2024 E-mail encounter from caregiver Denae Barraza MA [facility] [place] Start: 06-26-2024 End: 06-28-2024 Patient encounter procedure Denae Barraza MA [facility] [place] Comment on above: Appointment reschedu le Start: 06-13-2024 End: 06-13-2024 Chart abstracting Will Brannon MD Work Phone: [facility] [place] Comment on above: ER Discharge Summary Start: 06-12-2024 End: 06-13-2024 Dr. Rigo Espinal DO -Emergency Departme nt Work Phone: Start: 06-12-2024 End: 06-13-2024 Emergency department patient visit Rigo Espinal Facility:[facility] Start: 06-11-2024 End: 06-11-2024 ambulatory WILL BRANNON Facility:[facility] Start: 06-11-2024 End: 06-11-2024 Nursing evaluation of patient and report Nurse [facility] Work Phone: Urology Comment on above: Suprapubic catheter (HCC) (Primary Dx); Neurogenic bladder Start: 06-10-2024 End: 06-10-2024 Chart abstracting Denae Barraza MA [facility] Comment on above: ER F/U ([facility] - ER ) Start: 06-09-2024 End: 06-09-2024 Dr. Arnold Caban DO -Emergency Departmen t Work Phone: Start: 06-09-2024 End: 06-09-2024 Emergency department patient visit Arnold Caban Facility:[facility] Start: 06-02-2024 End: 06-02-2024 Emergency department patient visit SOLEDAD VARGAS MD [facility] Start: 05-21-2024 End: 05-21-2024 Dr. Will Brannon MD -Nuclear Medicine, [facility] Work Phone: Start: 05-21-2024 End: 05-21-2024 ambulatory Will Brannon Facility:[facility] Start: 05-07-2024 End: 05-07-2024 ambulatory WILL BRANNON Facility:[facility] Start: 05-07-2024 End: 05-07-2024 Nursing evaluation of patient and report Nurse [facility] Work Phone: Urology Comment on above: Neurogenic bladder ( Primary Dx) Start: 05-03-2024 End: 05-03-2024 ambulatory SABRA NEVAREZ Facility:[facility] Start: 05-03-2024 End: 05-03-2024 Patient encounter procedure Sabra Nevarez OD Work Phone: Ophthalmology Comment on above: Type 2 diabetes isela itus without retinopathy (HCC) (Primary Dx); Myopia, bilateral; Regular astigmatism of both eyes; Dry eye syndrome of left eye Start: 05-02-2024 End: 05-03-2024 Telephone encounter Cory Box PA-C Work Phone: Urology Comment on above: Results Start: 04-29-2024 End: 04-29-2024 ambulatory NILDA Shane CIOCE Facility:[facility] Start: 04-29-2024 End: 04-30-2024 Telephone encounter Will Brannon MD Work Phone: [facility] Comment on above: Results Start: 04-25-2024 End: 04-26-2024 Telephone encounter Will Brannon MD Work Phone: [facility] Comment on above: Results Start: 04-24-2024 Dr. Will ca MD -Speech Therapy Work Phone: Start: 04-24-2024 End: 04-24-2024 ambulatory Will Brannon Facility:[facility] Start: 04-24-2024 End: 04-24-2024 ambulatory WILL BRANNON Facility:[facility] Start: 04-24-2024 End: 04-24-2024 Subsequent hospital visit by physician [facility] Comment on above: Encounter for screen ing mammogram for breast cancer [Z12.31] Start: 04-18-2024 End: 04-18-2024 ambulatory WILL BRANNON Facility:[facility] Start: 04-18-2024 End: 04-18-2024 Subsequent hospital visit by physician [facility] Work Phone: Radiology Comment on above: Thyroid cyst [E04.1] Start: 04-15-2024 End: 04-15-2024 ambulatory Kandace Alexander MD Work Phone: Hematology/Oncology Comment on above: Splenic infarct (Martha penelope Dx) Start: 04-15-2024 End: 04-15-2024 Telemedicine consultation with patient Kandace Alexander MD Work Phone: Hematology/Oncology Start: 04-10-2024 End: 04-10-2024 ambulatory WILL BRANNON Facility:[facility] Start: 04-10-2024 End: 04-10-2024 Ophthalmic examination and evaluation Will Brannon MD Work Phone: [facility] Start: 04-10-2024 End: 04-10-2024 Patient encounter procedure Will Brannon MD Work Phone: [facility] Comment on above: Type 2 diabetes isela [...] 04-06-2024 End: 04-07-2024 Emergency department patient visit ALVAROAKHIL KIMOdalys [facility] Start: 04-02-2024 End: 04-02-2024 Nursing evaluation of patient and report Nurse [facility] Work Phone: Urology Comment on above: Neurogenic bladder ( Primary Dx) Start: 04-02-2024 End: 04-02-2024 Admission to same day surgery center Mellisa Paul APRN.CNP Work Phone: General Surgery Comment on above: H. Pylori Start: 04-02-2024 End: 04-02-2024 E-mail encounter from caregiver Mellisa Paul APRN.CNP Work Phone: General Surgery Start: 04-01-2024 End: 04-01-2024 Patient encounter procedure Mellisa Paul APRN.DIRECTOR [employer] Work Phone: General Surgery Comment on above: Oropharyngeal dyspha maría (Primary Dx) Start: 03-25-2024 End: 03-25-2024 Subsequent hospital visit by physician Xavier Josue MD Work Phone: Ambulatory Surgery Comment on above: Oropharyngeal dyspha maría [R13.12] Start: 03-21-2024 End: 03-21-2024 Visit (SP) Office Kandace Alexander MD Work Phone: Hematology/Oncology Comment on above: Splenic infarct (Martha penelope Dx); Left upper quadrant pain; Encounter for screening for cardiovascular disorders Start: 03-18-2024 End: 03-18-2024 Subsequent hospital visit by physician [facility] Work Phone: Radiology Comment on above: 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 Work Phone: General Surgery Start: 03-08-2024 End: 03-08-2024 Follow-up encounter Nurse Allie [facility] Work Phone: General Surgery Comment on above: EGD (upper scope) fo llow-up Start: 03-04-2024 End: 03-04-2024 Patient encounter procedure Xavier Josue MD Work Phone: General Surgery Comment on above: Oropharyngeal dyspha maría (Primary Dx) Start: 03-04-2024 End: 03-06-2024 Chart abstracting Denae Barraza MA [facility] [place] Comment on above: ED Follow-up Start: 03-01-2024 End: 03-06-2024 Telephone encounter Will Brannon MD Work Phone: [facility] [place] Comment on above: Results Start: 02-27-2024 End: 02-27-2024 Nursing evaluation of patient and report Nurse [facility] Work Phone: Urology Comment on above: Neurogenic bladder ( Primary Dx) Start: 02-25-2024 End: 02-26-2024 Emergency department patient visit MARTIN CHAHAL MD [facility] Start: 02-02-2024 End: 02-03-2024 Emergency department patient visit LUDWIG MAYER DO [facility] Start: 01-31-2024 End: 02-01-2024 Refill Will Brannon MD Work Phone: [facility] [place] Comment on above: Refill Request Start: 01-30-2024 End: 01-30-2024 Nursing evaluation of patient and report Nurse [facility] Work Phone: Urology Comment on above: Neurogenic bladder ( Primary Dx) Start: 01-16-2024 End: 01-16-2024 Nursing evaluation of [...] migrainosus; Neuropathy; Paresthesias; Cervical vertebral fusion Start: 01-02-2024 End: 01-02-2024 Nursing evaluation of patient and report Nurse Urol [facility] Work Phone: Urology Comment on above: Neurogenic bladder ( Primary Dx) Start: 01-02-2024 Chart abstracting Will ca MD Work Phone: [facility] [place] Comment on above: Outside Cardiac Even t Monitor Start: 12-21-2023 Telephone encounter Nilda basilio SLIP MAKER.DIRECTOR [employer]AND[employer] Work Phone: Endocrinology Comment on above: Orders (OV notes ) Start: 12-08-2023 Telephone encounter Daiana Sweeney MD Work Phone: [facility] Comment on above: Schedule Surgery; Pa tient Update Start: 12-06-2023 Telephone encounter Nilda basilio SLIP MAKER.DIRECTOR [employer]AND[employer] Work Phone: Orthopaedics Comment on above: Dexcom not covered b y insurance New Patient Orders Start: 12-06-2023 End: 12-06-2023 Patient encounter procedure Nilda Underwood SLIP MAKER.DIRECTOR [employer] Work Phone: Endocrinology Comment on above: Diabetes mellitus tr eated with insulin (HCC) (Primary Dx); Diabetes mellitus type 2 with ketoacidosis, uncontrolled (HCC) Start: 12-05-2023 End: 12-05-2023 Patient encounter procedure Cory Box PA-C Work Phone: Urology Comment on above: Neurogenic bladder ( Primary Dx); Suprapubic catheter (HCC) Start: 12-04-2023 End: 12-04-2023 Patient encounter procedure Devin George SLIP MAKER.DIRECTOR [employer]ANDARDS Work Phone: [facility] Comment on above: Splenic infarct (Martha penelope Dx); Urinary tract infection with hematuria, site unspecified; Acute pyelonephritis; C. difficile colitis; Colostomy in place (HCC); Suprapubic catheter (HCC) Start: 12-04-2023 Telephone encounter Will Brannon MD Work Phone: [facility] Start: 11-18-2023 End: 11-22-2023 Evaluation and management of inpatient KRISTOFER LARKIN MD [facility] Start: 11-17-2023 End: 11-18-2023 Emergency department patient visit CAS PAYNE DO [facility] Start: 11-09-2023 Chart abstracting Will ca MD Work Phone: [facility] [place] Comment on above: Received Outside Med ical Records (ER Report/) Start: 11-07-2023 Chart abstracting Will ca MD Work Phone: [facility] [place] Comment on above: Ext / micro labs Outside [id number] Ordered Start: 10-31-2023 E-mail encounter fro m caregiver Olivia Green PA-C Work Phone: Radiology Start: 10-31-2023 Follow-up encounter Olivia swann PA-C Work Phone: Radiology Comment on above: actioanble findings follow up Start: 10-31-2023 Telephone encounter Daiana Sweeney MD Work Phone: [facility] Comment on above: Appointment; Patient Update Start: 10-30-2023 End: 11-02-2023 Emergency department patient visit WILL BRANNON MD Facility:B Start: 10-30-2023 End: 11-02-[address] WALLACE BRUNSON MD [facility] Start: 10-13-2023 End: 10-13-2023 Nursing evaluation of patient and report Michele Cardozo RN [facility] Comment on above: Tethered cord (HCC) (Primary Dx) Start: 10-12-2023 Telephone encounter Sandrita Johnson MD Work Phone: Endocrinology Comment on above: Appointment Start: 10-11-2023 Telephone encounter Zainab Coreas tman SLIP MAKER.DIRECTOR [employer]OR [employer]ANDARDS Work Phone: Pre Anesthesia Start: 10-11-2023 End: 10-11-2023 Admission to establishment [facility] [place] 1 Work Phone: Pre Anesthesia Start: 10-11-2023 End: 10-11-2023 Anesthesia consultation [facility] [place] [facility] Work Phone: Pre Anesthesia Comment on [...] Start: 10-11-2023 End: 10-11-2023 Patient encounter status [facility] 1 Work Phone: [facility] Start: 10-11-2023 End: 10-11-2023 Preprocedural examination done [facility] Work Phone: [facility] Work Phone: Start: 10-09-2023 End: 10-09-2023 Patient encounter procedure Devin George APRN.CNP Work Phone: [facility] Comment on above: Type 2 diabetes isela itus with proteinuria (HCC) (HCC) (Primary Dx); 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); Diabetes mellitus with peripheral vascular disease (HCC); Mixed hyperlipidemia Start: 10-07-2023 End: 10-07-2023 Emergency department patient visit [facility] Work Phone: Start: 10-05-2023 Telephone encounter Devin wan APRN.DIRECTOR LABOR STANDARDS Work Phone: [facility] Comment on above: Results Start: 10-03-2023 End: 10-03-2023 Nursing evaluation of patient and report Nurse [facility] Work Phone: Urology Comment on above: Neurogenic bladder ( Primary Dx) Start: 10-03-2023 E-mail encounter fro m caregiver Olivia Green PA-C Work Phone: Radiology Start: 10-03-2023 Follow-up encounter Olivia swann PA-C Work Phone: Radiology Comment on above: actioanble findings follow up Start: 09-28-2023 End: 09-28-2023 Patient encounter procedure Devin George APRN.CNP Work Phone: [facility] Comment on above: Medicare annual [facility] visit, subsequent (Primary Dx); Type 2 diabetes [...] 09-26-2023 ambulatory Daiana Sweeney MD Work Phone: [facility] Start: 09-26-2023 Patient encounter status Daiana Sweeney MD Work Phone: [facility] Start: 09-24-2023 End: 09-25-2023 Emergency department patient visit TYLER BARRETT DO [facility] Start: 09-22-2023 Telephone encounter Daiana Sweeney MD Work Phone: [facility] Comment on above: Schedule Surgery Start: 09-21-2023 End: 09-21-2023 Patient encounter procedure Daiana Sweeney MD Work Phone: [facility] Comment on above: Lipomeningocele (HCC ) Start: 09-05-2023 End: 09-05-2023 Nursing evaluation of patient and report [facility] Work Phone: Urology Comment on above: Neurogenic bladder ( Primary Dx) Start: 08-18-2023 End: 08-18-2023 Subsequent hospital visit by physician M[facility] (I-Stat/1.5t) Work Phone: Radiology Comment on above: [...] Chart abstracting Will ca MD Work Phone: [facility] Start: 08-13-2023 End: 08-13-2023 Emergency department patient visit [facility] Work Phone: Start: 07-26-2023 Chart abstracting Will ca MD Work Phone: [facility] Comment on above: Outside Imaging Start: 07-25-2023 End: 07-25-2023 ambulatory [facility] Work Phone: Start: 07-25-2023 End: 07-25-2023 Patient encounter procedure [facility]Rad[facility], [facility] Work Phone: Start: 07-19-2023 End: 07-20-2023 Emergency department patient visit MARTIN CHAHAL MD [facility] Start: 07-18-2023 End: 07-18-2023 Patient encounter procedure Stephan Nicholson MD Work Phone: [facility] [place] Comment on above: Lipomeningocele (HCC ) (Primary Dx); Spinal stenosis of cervical region; Radiculopathy of lumbar region; Chronic bilateral low back pain without sciatica Start: 07-15-2023 End: 07-15-2023 Emergency department patient visit BRADY DOMINGUEZ MD [facility] Start: 07-04-2023 End: 07-04-2023 Nursing evaluation of patient and report Nurse [facility]rol [facility] Work Phone: Urology Comment on above: Neurogenic bladder ( Primary Dx) Start: 06-07-2023 End: 06-07-2023 Emergency department patient visit JHONY VAZQUEZ DO [facility] Start: 05-10-2023 End: 05-11-2023 ambulatory ARACELI LARAANJUM Facility:[facility] Start: 05-08-2023 Telephone encounter Araceli castro PA-C Work Phone: Neurology Start: 05-07-2023 Telephone encounter Will Brannon MD Work Phone: [facility] Comment on above: Results Start: 05-02-2023 End: 05-02-2023 Nursing evaluation of patient and report Nurse [facility]rol [facility] Work Phone: Urology Comment on above: Neurogenic bladder ( Primary Dx) Start: 05-02-2023 Telephone encounter Araceli castro PA-C Work Phone: Neurology Comment on above: Patient Update Start: 05-02-2023 End: 05-02-2023 Patient encounter procedure Araceli Laraanjum SAWANT-Acosta Work Phone: Neurology Comment on above: Intractable [...] 04-20-2023 End: 04-21-2023 Emergency department patient visit [facility] Work Phone: Start: 04-13-2023 End: 04-13-2023 ambulatory [facility] Work Phone: Start: 04-13-2023 End: 04-13-2023 Patient encounter procedure [facility]Laboratory, Specimen Work Phone: Start: 04-13-2023 End: 04-13-2023 Patient encounter procedure Xavier Josue MD Work Phone: General Surgery Comment on above: Thyroid nodule (Prim venu Dx) Start: 04-13-2023 Telephone encounter Will Brannon MD Work Phone: [facility] Comment on above: Results Start: 04-10-2023 End: 04-10-2023 Patient encounter procedure Xavier Josue MD Work Phone: General Surgery Comment on above: Thyroid nodule (Prim venu Dx) Start: 04-06-2023 Documentation procedure [facility]og patria [facility] Start: 04-06-2023 Letter encounter Mammography Coordinator [facility] Department Start: 04-04-2023 End: 04-04-2023 Nursing evaluation of patient and report Nurse Urol [facility] Work Phone: Urology Comment on above: Neurogenic bladder ( Primary Dx) Start: 03-07-2023 End: 03-07-2023 Nursing evaluation of patient and report Nurse Urol [facility] Work Phone: Urology Comment on above: Neurogenic bladder ( Primary Dx) Start: 02-27-2023 Telephone encounter Will Brannon MD Work Phone: [facility] Comment on above: Results Start: 02-21-2023 End: 02-25-2023 Evaluation and management of 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 Start: 02-15-2023 ambulatory Will morales MD Work Phone: Internal Medicine [facility] Start: 02-02-2023 End: 02-02-2023 Emergency department patient visit [facility] Work Phone: Start: 01-29-2023 End: 01-29-2023 Emergency department patient visit [facility] Work Phone: Start: 01-16-2023 ambulatory Farhat Sears MD Work Phone: Urology Start: 01-16-2023 End: 01-16-2023 Patient encounter procedure Farhat Sears MD Work Phone: Urology Comment on above: Recurrent UTI (Prima ry Dx); Uncontrolled type 2 diabetes mellitus with hyperglycemia (HCC); Neurogenic bladder; Suprapubic catheter (HCC); Morbid obesity with BMI of 40.0-44.9, adult (HCC) Start: 01-04-2023 End: 01-04-2023 ambulatory [facility] Work Phone: Start: 01-04-2023 End: 01-04-2023 Patient encounter procedure [facility] Out Work Phone: Start: 12-28-2022 End: 12-28-[address] Will Brannon Work Phone: [facility] Work Phone: Start: 12-28-2022 End: 12-28-[address] Will Brannon Work Phone: [facility] Work Phone: Start: 12-18-2022 Evaluation and manag ement of inpatient ANDREW JOHANSEN Facility:[id number] Start: 12-18-2022 End: 12-18-2022 Emergency department patient visit ELIZABETH CHRISTIANSON [facility] Start: 12-14-2022 Chart abstracting Will ca MD Work Phone: [facility] [place] Comment on above: outside imaging; ER report Start: 12-12-2022 End: 12-12-2022 Emergency department patient visit Dr. Will Brannon Work Phone: [facility] Work Phone: Start: 12-10-2022 End: 12-10-2022 Emergency department patient visit CAS PAYNE DO [facility] Start: 12-02-2022 End: 12-02-2022 Patient encounter procedure Cory Box PA-C Work Phone: Urology Comment on above: Neurogenic bladder ( Primary Dx) Start: 11-21-2022 End: 11-22-2022 Emergency department patient visit BRADY DOMINGUEZ MD [facility] Start: 11-18-2022 End: 11-18-2022 Nursing evaluation of patient and report Stoma Therapy Work Phone: Colorectal Surgery Comment on above: Attention to colosto my (HCC) (Primary Dx) Start: 11-18-2022 End: 11-18-2022 Patient encounter procedure Araseli Renae APRN.DIRECTOR LABOR STANDARDS Work Phone: Colorectal Surgery Comment on above: Attention to colosto my (HCC) (Primary Dx) Start: 11-15-2022 Telephone encounter Sandra moran DO Work Phone: Colorectal Surgery Comment on above: Residential Leasing Manager - O ther Start: 11-14-2022 ambulatory Sandra López DO Work Phone: Colorectal Surgery Comment on above: Having an issue Start: 11-01-2022 End: 11-01-2022 Nursing evaluation of patient and report Nurse [facility]rol [facility] Work Phone: Urology Comment on above: Neurogenic bladder ( Primary Dx) Start: 11-01-2022 Telephone encounter Cory choi PA-C Work Phone: Urology Comment on above: Orders Start: 10-15-2022 End: 10-15-2022 Emergency department patient visit Dr. Will Brannon Work Phone: [facility] Work Phone: Start: 10-07-2022 Chart abstracting Will ca MD Work Phone: [facility] Comment on above: ER Discharge Summary (US, X-ray) Start: 10-06-2022 End: 10-06-2022 Emergency department patient visit Dr. Will Brannon Work Phone: [facility] Start: 10-04-2022 End: 10-04-2022 Nursing evaluation of patient and report Nurse Urol [facility] Work Phone: Urology Comment on above: Neurogenic bladder ( Primary Dx); Suprapubic catheter (HCC); Diabetes mellitus type 2 with ketoacidosis, uncontrolled (HCC) Start: 09-06-2022 End: 09-06-2022 Nursing evaluation of patient and report Nurse Urol [facility] Work Phone: Urology Comment on above: Neurogenic bladder ( Primary Dx) Start: 09-02-2022 Chart abstracting Will ca MD Work Phone: [facility] Start: 09-01-2022 End: 09-01-[address] Will Brannon Work Phone: [facility] Start: 08-30-2022 Telephone encounter Will Brannon MD Work Phone: [facility] Comment on above: Results Start: 08-25-2022 Telephone encounter Denae Barraza MA [facility] Comment on above: Appointment Start: 08-24-2022 Patient encounter procedure iWll Brannon MD Work Phone: [facility] Work Phone: Start: 08-17-2022 Chart abstracting Will ca MD Work Phone: [facility] Comment on above: ER F/U ([facility] ER ) Start: 08-16-2022 End: 08-16-2022 Emergency department patient visit Dr. Will Brannon Work Phone: [facility] Start: 08-02-2022 End: 08-02-2022 Nursing evaluation of patient and report Nurse [facility] Work Phone: Urology Comment on above: [...] Chart abstracting Will ca MD Work Phone: [facility] Comment on above: XRay Report Start: 07-18-2022 Non-patient / Non-visit Dr. Puma Brannon Work Phone: [facility] Start: 07-17-2022 Non-patient / Non-visit Dr. Puma Brannon Work Phone: [facility] Start: 07-16-2022 Non-patient / Non-visit Dr. Puma Brannon Work Phone: [facility] Start: 07-15-2022 Non-patient / Non-visit Dr. Puma Brannon Work Phone: [facility] Start: 07-15-2022 End: 07-15-2022 Non-patient / Non-visit Dr. Will Brannon Work Phone: [facility] Start: 07-14-2022 Non-patient / Non-visit Dr. Puma Brannon Work Phone: [facility] Start: 07-13-2022 Non-patient / Non-visit Dr. Puma Brannon Work Phone: [facility] Start: 07-13-2022 End: 07-18-2022 Evaluation and management of inpatient [facility] 3 Start: 07-05-2022 End: 07-05-2022 Nursing evaluation of patient and report Nurse Urol [facility] Work Phone: Urology Comment on above: Neurogenic bladder ( Primary Dx) Start: 07-03-2022 End: 07-04-2022 Emergency department patient visit DAMIR BLUNT DO [facility] Start: 06-13-2022 ambulatory Kimberley hughes PA Work Phone: Urology Start: 06-07-2022 End: 06-07-2022 Nursing evaluation of patient and report Nurse Urol [facility] Work Phone: Urology Comment on above: Neurogenic bladder ( Primary Dx) Start: 06-04-2022 End: 06-05-2022 Observation NADER CARDOZO 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LABOR STANDARDS [facility] Start: 05-15-2022 End: 05-16-2022 Emergency department patient visit [facility] Start: 05-10-2022 End: 05-10-2022 Nursing evaluation of patient and report Nurse Urol [facility] Work Phone: Urology Comment on above: Neurogenic bladder ( Primary Dx) Start: 04-23-2022 End: 04-27-2022 Observation JERAD GONZALEZ 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LABOR STANDARDS [facility] Start: 04-10-2022 End: 04-11-2022 Emergency department patient visit [facility] Start: 03-22-2022 End: 03-22-2022 Emergency department patient visit DR ELIZABETH PERALTA MD [facility] Start: 03-22-2022 End: 03-22-2022 Emergency department patient visit [facility] Start: 03-15-2022 End: 03-15-2022 Nursing evaluation of patient and report Nurse Urol [facility] Work Phone: Urology Comment on above: Neurogenic dysfuncti on of the urinary bladder (Primary Dx) Start: 02-28-2022 End: 02-28-2022 Patient encounter procedure Tulio Pompa MD Work Phone: [facility] Comment on above: Gastroenteritis (Amrtha penelope Dx) Start: 02-22-2022 End: 02-22-2022 Patient [...] patient visit CAS PAYNE DO [facility] Start: 02-15-2022 Telephone encounter Netta lopez PA-C Work Phone: [facility] [place] Comment on above: Results Start: 02-14-2022 End: 02-14-2022 Subsequent hospital visit by physician [facility] 1 Work Phone: Radiology Comment on above: Thyroid cyst [E04.1] Start: 02-10-2022 Telephone encounter Netta lopez PA-C Work Phone: [facility] [place] Comment on above: Results Start: 02-09-2022 End: 02-09-2022 Patient encounter procedure Netta Higgins PA-C Work Phone: [facility] [place] Comment on above: Type 2 diabetes [...] evaluation of patient and report Nurse Urol [facility] Work Phone: Urology Comment on above: Neurogenic dysfuncti on of the urinary bladder (Primary Dx) Start: 01-12-2022 End: 01-12-2022 Subsequent hospital visit by physician Screen Mammo [facility] M[facility] Comment on above: Encounter for screen ing mammogram for breast cancer [Z12.31] Start: 01-12-2022 Documentation procedure Mammog patria Coordinator [facility] Start: 01-12-2022 Letter encounter Mammography Coordinator [facility] Department Start: 12-31-2021 End: 12-31-2021 Nursing evaluation of patient and report Nurse Urol [facility] Work Phone: Urology Comment on above: Neurogenic dysfuncti on of the urinary bladder (Primary Dx) Start: 12-15-2021 ambulatory Will morales MD Work Phone: Internal Medicine [facility] Start: 12-09-2021 End: 12-09-2021 Patient encounter procedure Too Parker MD Work Phone: Allergy Comment on above: Adverse effect of ce phalosporins and other beta-lactam antibiotics, initial encounter (Primary Dx); Anaphylaxis, initial encounter Start: 12-03-2021 End: 12-03-2021 Patient encounter procedure Cory Box PA-C Work Phone: Urology Comment on above: Suprapubic catheter (HCC) (Primary Dx) Start: 11-26-2021 Telephone encounter Sandra moran DO Work Phone: Colorectal Surgery Comment on above: Residential Leasing Manager - O ther Start: 11-26-2021 End: 11-26-2021 Emergency department patient visit Dr. Will Brannon Work Phone: [facility] Start: 11-22-2021 Chart abstracting Will ca MD Work Phone: [facility] Comment on above: D/C Summary Events Start: 11-22-2021 Non-patient / Non-visit Dr. Puma Brannon Work Phone: [facility] Start: 11-21-2021 Non-patient / Non-visit Dr. Puma Brannon Work Phone: [facility] Start: 11-21-2021 End: 11-22-2021 Evaluation and management of inpatient Dr. Will Brannon Work Phone: [facility] 3 Start: 11-14-2021 End: 11-15-2021 [facility] Start: 11-08-2021 Telephone encounter Cory choi PA-C Work Phone: Urology Comment on above: Appointment Start: 11-04-2021 End: 11-05-2021 Emergency department patient visit [facility] Start: 10-27-2021 End: 10-27-2021 Patient encounter procedure Sandra López DO Work Phone: Colorectal Surgery Comment on above: Anaphylaxis, initial encounter (Primary Dx) Start: 10-27-2021 End: 10-27-2021 Nursing evaluation of patient and report Stoma Therapy Work Phone: Colorectal Surgery Comment on above: Attention to colosto my (HCC) (Primary Dx) Start: 10-26-2021 End: 10-26-2021 Departed Referred [facility] 100/[facility] Start: 10-26-2021 Registered Referred [facility] 100[facility] Start: 10-18-2021 End: 10-18-2021 Departed Referred [facility] 100[facility] Start: 10-11-2021 End: 10-11-2021 Departed Referred [facility] 100[facility] Start: 09-22-2021 End: 09-22-2021 amb[address] [facility] [address] 2 Work Phone: Pre Anesthesia Comment on above: Preoperative examina tion (Primary Dx); Colonic dysmotility; Constipation due to outlet dysfunction; Morbid obesity with BMI of 40.0-44.9, adult (HCC); Migraine without aura and without status migrainosus, not intractable; History of Manley's palsy; Spina bifida, unspecified hydrocephalus presence, unspecified spinal region (HCC); Essential hypertension; Mixed hyperlipidemia; Paroxysmal SVT (supraventricular tachycardia) ([facility]); Neurogenic bladder; Type 2 diabetes mellitus with hyperglycemia, with long-term current use of insulin ([facility]) Start: 09-22-2021 Telephone encounter Wilbur smith PA-C Work Phone: Pre Anesthesia Comment on above: PreOp Call (A1C) Patient Request Start: 09-22-2021 End: 09-22-2021 Nursing evaluation of patient and report Stoma Therapy Work Phone: Colorectal Surgery Comment on above: Attention to artific ial opening of urinary tract (HCC) (Primary Dx) Start: 09-22-2021 End: 09-22-2021 Admission to establishment [facility] 2 Work Phone: [facility] Start: 09-22-2021 End: 09-22-2021 Preprocedural examination done Pacc Main 2 Work Phone: Pre Anesthesia Start: 09-17-2021 End: 09-17-2021 Emergency department patient visit [facility] Start: 09-17-2021 End: 09-17-2021 Patient encounter procedure [facility]/Neurology Start: 09-09-2021 End: 09-09-2021 Subsequent hospital visit by physician Mri Radio [facility] (I-Stat/1.5t) Work Phone: Radiology Comment on above: 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] Spinal stenosis of l umbar region without neurogenic claudication [M48.061] Start: 09-03-2021 Telephone encounter Angeline Johnston Colorectal Surgery Comment on above: Residential Leasing Manager - O ther; Orders Start: 08-31-2021 End: 08-31-2021 Nursing evaluation of patient and report Nurse Urol [facility] Work Phone: Urology Comment on above: Neurogenic dysfuncti on of the urinary bladder (Primary Dx) Start: 08-27-2021 Telephone encounter Jaimee Benedictann-marie SLIP MAKER.DIRECTOR LABOR STANDARDS Work Phone: Neurology Comment on above: EMG order to [facility] Start: 08-26-2021 End: 08-26-2021 Patient encounter procedure Jaimee Carbajal SLIP MAKER.DIRECTOR LABOR STANDARDS Work Phone: Neurology Comment on above: Neuropathy (Primary Dx); Spina bifida, unspecified hydrocephalus presence, unspecified spinal region (HCC); Spinal stenosis of lumbar region without neurogenic claudication; Thyroid cyst; Manley's palsy; Facial weakness Start: 08-25-2021 Telephone encounter Angeline Johnston Colorectal Surgery Comment on above: Residential Leasing Manager - O ther; Orders; Patient Question; Appointment; Returning Patient's Call Start: 08-24-2021 Telephone encounter Angeline Johnston Colorectal Surgery Comment on above: Residential Leasing Manager - O ther; Orders; Patient Question Start: 08-20-2021 End: 08-20-2021 Subsequent hospital visit by physician Xr [facility] Mob Work Phone: Radiology Comment on above: Neurogenic bowel [K5 9.2] Start: 08-20-2021 End: 08-20-2021 [facility] Start: 07-28-2021 Ophthalmic examinati on and evaluation Xr Mob Work Phone: [facility] Work Phone: Start: 07-28-2021 Patient encounter procedure Xr Mob Work Phone: [facility] Work Phone: Start: 07-07-2021 End: 07-07-2021 Emergency department patient visit [facility] Start: 06-30-2021 End: 06-30-2021 Emergency department patient visit [facility] Start: 06-28-2021 End: 06-28-2021 Emergency department patient visit [facility] Start: 06-27-2021 End: 06-28-2021 Emergency department patient visit [facility] Start: 06-03-2021 End: 06-04-2021 Emergency department patient visit [facility] Start: 04-28-2021 End: 04-28-2021 Emergency department patient visit DR DANIELA VARGAS MD [facility] Start: 01-02-2018 End: 01-02-2018 Patient encounter NOAMAN S ALI Facility:[facility] Start: 12-26-2017 End: 12-26-2017 Emergency department patient visit Will Brannon Facility:[facility] Start: 12-11-2017 End: 12-12-2017 Evaluation and management of inpatient NOHUMA S ALI Facility:[facility] Start: 12-11-2017 End: 12-12-2017 Patient encounter NOHUMA BELLA [facility] Start: 12-01-2017 End: 12-01-2017 Patient encounter NOAMAN S ALI Facility:[facility] Start: 11-07-2017 End: 11-07-2017 [facility] Start: 10-17-2017 End: 10-17-2017 Patient encounter NOAMAN S ALI Facility:[facility] Start: 11-27-2016 End: 11-27-2016 Emergency department patient visit REID LANDAVERDEMARY Facility:[facility] Procedures Date Procedure Procedure Detail Performing Clinician Start: 03-09-2025 Plain X-ray abdomen Dr. Will Brannon MD Work Phone: Start: 03-08-[address] Gogo Brannon MD Work Phone: Start: 03-08-2025 Ct abdomen & pelvis w/contrast material Dr. Will Brannon MD Work Phone: Start: 03-08-2025 Urnls dip stick/tablet reagent auto microscopy Dr. Will Brannon MD Work Phone: Start: 03-08-[address] Will Brannon MD Work Phone: Start: 03-08-[address] Will Brannon MD Work Phone: Start: 01-24-2025 History of amputation of hallux History of amputation of great toe (HCC) Will Brannon MD Work Phone: Start: 11-20-2024 Urine microscopy: red cells Dr. Will Brannon MD Work Phone: Start: 11-20-2024 Urnls dip stick/tablet reagent auto microscopy Dr. Will Brannon MD Work Phone: Start: 11-19-2024 Blood count smear mcrscp w/mnl difrntl wbc count Dr. Will Brannon MD Work Phone: Start: 11-19-2024 Calculation of international normalized ratio Dr. Will Brannon MD Work Phone: Start: 11-19-[address] Gogo Brannon MD Work Phone: Start: 11-19-2024 Mean corpuscular hemoglobin concentration determination Dr. Will Brannon MD Work Phone: Start: 11-19-2024 Nucleated red blood cell count procedure Dr. Will Brannon MD Work Phone: Start: 11-19-2024 Platelet mean volume determination Dr. Florencia Brannon MD Work Phone: Start: 09-09-2024 Urine microscopy: red cells Dr. [...] 08-19-2024 Vitamin D, 25-hydroxy measurement Dr. Puma rBannon MD Work Phone: Start: 08-16-2024 Incision and [...] Result Comment: URINALYSIS Performed By: #### 2 [id number] #### [facility],[address] [place] [address] Start: 12-12-2022 CT of abdomen and pelvis [...] 04-11-2022 X-ray of both feet Start: 02-14-2022 Us soft tissue head & neck real [...] 09-30-2021 H/O: colostomy S/P colostomy Jaimee Carbajal [employer]KER.DIRECTOR [employer] Work Phone: Start: 09-17-2021 Urine culture Start: 09-09-2021 End: 09-09-2021 Mri brain brain stem w/o w/contrast material Jaimee Carbajal [employer] MAKER.DIRECTOR [employer] Work Phone: Start: 08-20-2021 X-ray exam of abdomen Sandra Maribel DO Work Phone: Start: 08-20-2021 Urine culture [...] Dr. Will Brannon Work Phone: Cholecystectomy NADER JULIANE 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[employer] Colostomy JERAD GONZALEZ 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[employer] Cytopathology proced ure, preparation of smear, genital [...] Brannon Work Phone: Microbial culture, routine D rShiva Brannon Work Phone: Microbial culture, routine D rShiva Brannon Work Phone: Mycology culture Dr. Will Brannon Work Phone: Partial amputation o f toe of left foot CAS PAYNE DO Procedure involving suprapubic catheter JERAD GONZALEZ 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[employer] SARS-CoV-2 & FLU Antigen (Rapid) Umbilical hernia (disorder) DR DANIELA VARGAS MD Urine culture Urine culture Urine culture Urine culture Urine culture Dr. Will ca Work Phone: Viral antigen assay Dr. Kevin Brannon Work Phone: Plan of Treatment Date Care Activity Detail Author Start: 2046 PNEUMOCOCCAL (3 - PPSV23 if available, else PCV20) PNEUMOCOCCAL (3 - PPSV23 if available, else PCV20) [facility] Start: 2046 PNEUMOCOCCAL (3 - PPSV23 or PCV20) PNEUMOCOCCAL (3 - PPSV23 or PCV20) [facility] Start: 2046 Pneumococcal vaccination [facility] Start: 11-13-2031 Pneumococcal vaccination Pneumococcal Vaccine (3 of 3 - PCV20 or PCV21) [facility] Start: 03-23-2031 Urine microalbumin profile [facility] Start: 05-02-2028 Screening for malignant neoplasm of cervix [facility] Start: 01-24-2026 Annual PCP Team Chronic Disease Visit Annual PCP Team Chronic Disease Visit [facility] Start: 01-24-2026 Hepatitis B surface antibody level LDL Cholesterol [facility] Start: 01-24-2026 Medicare Annual Wellness Visit Medicare Annual Wellness Visit [facility] Start: 08-29-2025 Hepatitis B surface antibody level LDL Cholesterol [facility] Start: 07-25-2025 End: 07-25-2025 Patient encounter procedure 07/25/2025 12:00 PM EST Office Visit [facility] [address] [place], [place] [id number] Netta Higgins PA-C [address] [place], [place] [address] 6 mo f/u per PCP needs 40 min [facility] Comment on above: 6 mo f/u per PCP needs 40 min Start: 07-11-2025 Annual PCP Team Chronic Disease Visit Annual PCP Team Chronic Disease Visit [facility] Start: 05-16-2025 End: 05-16-2025 Patient encounter procedure 05/16/2025 2:30 PM EST Office Visit [facility] Ophthalmology [address] [place] [address] Sabra Nevarez, OD [address] [place] [address] 1 yr Diabetic eye Ophthalmology Comment on above: 1 yr Diabetic eye Start: 05-03-2025 Glaucoma screening Dilated Retinal Exam [facility] Start: 04-29-2025 Hepatitis B surface antibody level LDL Cholesterol [facility] Start: 04-24-2025 Screening for malignant neoplasm of breast Mammogram Screening [facility] Start: 04-18-2025 End: 04-18-2025 Patient encounter procedure 04/18/2025 9:00 AM EST Appointment Radiology [address] [place] [address] Thyroid cyst [E04.1] Radiology Comment on above: Thyroid cyst [E04.1] Start: 04-14-2025 End: 02-23-2026 US Thyroid gland US THYROID/PARATHYROID Radiology Routine Thyroid cyst Expected: 04/14/2025, Expires: 02/23/2026 [facility] Work Phone: Comment on above: Expected: 04/14/2025, Expires: Start: 04-10-2025 Annual PCP Team Chronic Disease Visit Annual PCP Team Chronic Disease Visit [facility] Start: 04-10-2025 BP Controlled (<130/80) BP Controlled (<130/80) [facility] in Start: 04-08-2025 End: 04-08-2025 Nursing evaluation of patient and report Urology Comment on above: NURSE: SPT tube change. Last 12/03/2024. [facility] NURSE: SPT tube caryl bagley. Last 03/11/2025. [facility] Start: 03-26-2025 End: 03-26-2025 Patient encounter procedure 03/26/2025 7:15 AM EDT Office Visit Endocrinology [address] [place] [address] Nilda Underwood, SLIP MAKER.DIRECTOR [employer]ANDARDS [address] [place] [address] Diabetes mellitus with peripheral vascular disease Endocrinology Comment on above: Diabetes mellitus with peripheral vascul ar disease Start: 03-11-2025 End: 03-11-2025 Nursing evaluation of patient and report Urology Comment on above: NURSE: SPT tube change. Last 12/03/2024. [facility] NURSE: SPT tube hutson ge. Last 02/11/2025. [facility] Start: 03-09-2025 [facility] Start: 03-09-2025 [facility] Start: 03-08-2025 [facility] Start: 02-11-2025 End: 02-11-2025 Nursing evaluation of patient and report Urology Comment on above: NURSE: SPT tube change. Last 12/03/2024. [facility] NURSE: SPT tube hutson ge. Last 12/31/2024. [facility] Start: 02-04-2025 End: 02-04-2025 Patient encounter procedure 02/04/2025 4:00 PM EDT Office Visit OB/Gynecology [address] [place] [address] Joni Barraza MD [address] [place] [address] Annual check up OB/Gynecology Comment on above: Annual check up Start: 02-04-2025 End: 05-06-2025 Hemoglobin A1c in Blood HEMOGLOBIN A1C Lab Routine Diabetes mellitus with peripheral vascular disease (HCC) Expected: 02/04/2025, Expires: 05/06/2025 [facility] Work Phone: Comment on above: Expected: 02/04/2025, Expires: Start: 01-27-2025 Influenza vaccination [facility] Start: 01-24-2025 End: 01-24-2025 Patient encounter procedure 01/24/2025 10:40 AM EDT Office Visit Family [facility] [place] [address] [place] [address] Will Brannon MD [address] [place] [address] Medicare Wellness [facility] [place] Comment on above: Medicare Wellness Start: 01-08-2025 End: 01-08-2025 Patient encounter procedure 01/08/2025 4:30 PM EDT Office Visit Neurology [address] [place] [address] Araceli Torres PA-C [address] [place] [address] 6 month follow up Neurology Comment on above: 6 month follow up Start: 01-02-2025 BP Controlled (<130/80) BP Controlled (<130/80) [facility] Start: 12-31-2024 End: 12-31-2024 Nursing evaluation of patient and report 12/31/2024 3:40 PM EDT Nurse Visit Urology [address] [place] [address] Wstr, Nurse Urol [facility] [address] [place] [id number] NURSE: SPT tube change. Last 10/08/2024. Order PENDED. [facility] Urology Comment on above: NURSE: SPT tube change. Last 10/08/2024. Order PENDED. [facility] Start: 12-05-2024 BP Controlled (<130/80) BP Controlled (<130/80) [facility] Start: 12-03-2024 End: 12-03-2024 Patient encounter procedure 12/03/2024 3:30 PM EDT Office Visit Urology [address] [place] [address] Cory Box PA-C [address] [place] [address] Yearly: Neurogenic Bladder with SPT Urology Comment on above: Yearly: Neurogenic Bladder with SPT Start: 12-03-2024 Annual PCP Team Chronic Disease Visit Annual PCP Team Chronic Disease Visit [facility] Start: 12-03-2024 BP Controlled (<130/80) BP Controlled (<130/80) [facility] Start: 11-28-2024 Hemoglobin A1c measurement HbA1C [facility] Start: 11-20-2024 End: 11-20-2024 [facility] Start: 11-19-2024 End: 11-19-2024 [facility] Start: 11-19-2024 End: 11-19-2024 Nursing evaluation of patient and report 11/19/2024 3:40 PM EDT Nurse Visit Urology [address] [place] [address] Wstr, Nurse Urol [facility] [address] [place] [address] ATTEMPT/ SPT tube change. Order PENDED. [facility] Urology Comment on above: 1 ST ATTEMPT/ SPT tube change. Order PEN DED. [facility] Start: 11-05-2024 End: 11-05-2024 Nursing evaluation of patient and report 11/05/2024 3:40 PM EDT Nurse Visit Urology [address] [place] [address] Wstr, Nurse Urol [facility] [address] [place] [address] SPT tube change. Order PENDED. [facility] Urology Comment on above: SPT tube change. Order PENDED. [facility] Start: 10-16-2024 End: 10-16-2024 Patient encounter procedure [facility] [place] Comment on above: Medicare wellness Start: 10-08-2024 End: 10-08-2024 Nursing evaluation of patient and report 10/08/2024 3:40 PM EDT Nurse Visit Urology [address] [place] [address] Wstr, Nurse Urol [facility] [address] [place] [address] SPT tube change. Order PENDED. [facility] Urology Comment on above: SPT tube change. Order PENDED. [facility] Start: 10-08-2024 Annual PCP Team Chronic Disease Visit Annual PCP Team Chronic Disease Visit [facility] Start: 10-08-2024 BP Controlled (<130/80) BP Controlled (<130/80) [facility] in Start: 10-01-2024 Hepatitis B surface antibody level LDL Cholesterol [facility] Start: 09-27-2024 Annual PCP Team Chronic Disease Visit Annual PCP Team Chronic Disease Visit [facility] Start: 09-27-2024 BP Controlled (<130/80) BP Controlled (<130/80) [facility] in Start: 09-27-2024 Medicare Annual Wellness Visit Medicare Annual Wellness Visit [facility] Start: 08-28-2024 End: 08-28-2024 ambulatory 08/28/2024 4:15 PM EDT Results Only [facility] [address] [place] [address] [facility] Start: 08-16-2024 Patient discharge [facility] Start: 08-15-2024 BP Controlled (<130/80) BP Controlled (<130/80) [facility] in Start: 08-13-2024 End: 08-13-2024 Nursing evaluation of patient and report 08/13/2024 3:40 PM EDT Nurse Visit Urology [address] [place] [address] Wstr, Nurse Urol [facility] [address] [place] [address] SPT tube change Urology Comment on above: SPT tube change Start: 08-13-2024 Consultation for treatment [facility] Start: 08-13-2024 Wound care [facility] Start: 08-13-2024 [facility] Start: 08-12-2024 [facility] Start: 08-12-2024 Microbial culture, routine [facility] Start: 08-12-2024 Consultation [facility] Start: 08-12-2024 Patient education [facility] Start: 08-12-2024 Referral to sales porter [facility] Start: 08-12-2024 Following clinical pathway protocol [facility] Start: 08-12-2024 Assessment of risk of venous thromboembolism [facility] Start: 08-12-2024 Care regimes management [facility] Start: 08-12-2024 Catheterization of vein [facility] Start: 08-12-2024 Inhalation therapy procedure [facility] Start: 08-12-2024 Insertion of catheter into peripheral vein [facility] Start: 08-12-2024 Measuring intake and output [facility] Start: 08-12-2024 End: 08-12-2024 Notification of physician [facility] Start: 08-12-2024 End: 08-12-2024 Patient referral to dietitian [facility] Start: 08-12-2024 Providing care according to standard [facility] Start: 08-12-2024 Provision of activity privileges [facility] Start: 08-12-2024 Referral to service [facility] Start: 08-12-2024 Vital signs measurements [facility] Start: 08-12-2024 End: 08-12-2024 [facility] Start: 08-12-2024 Source specific culture [facility] Start: 08-11-2024 CT of lower limb with contrast [facility] Start: 08-11-2024 Urinalysis complete panel - Urine [facility] Start: 08-11-2024 Verification routine [facility] Start: 08-11-2024 Admission procedure [facility] Start: 08-11-2024 Hospital admission, emergency, from emergency room, medical nature [facility] Start: 08-11-2024 End: 08-11-2024 [facility] Start: 08-11-2024 Blood culture [facility] Start: 07-31-2024 [facility] Start: 07-28-2024 Hemoglobin A1c measurement HbA1C [facility] Start: 07-18-2024 BP Controlled (<130/80) BP Controlled (<130/80) [facility] in Start: 07-16-2024 End: 07-16-2024 Nursing evaluation of patient and report 07/16/2024 3:40 PM EST Nurse Visit Urology [address] [place], [place] [id number] Wstr, Nurse Urol [facility] [address] [place], [place] [address] SPT tube change Urology Comment on above: SPT tube change Start: 07-11-2024 [facility] Start: 07-11-2024 [facility] Start: 07-11-2024 End: 07-11-2024 Patient encounter procedure 07/11/2024 4:20 PM EST Office Visit Family Medicine [place] [address] [facility] [place] [address] Devin George APRN.DIRECTOR [employer] [address] [place] [address] Nosebleed on left side the last week very worried [facility] Comment on above: Nosebleed on left side the last week kamla y worried Start: 07-09-2024 End: 07-09-2024 Patient encounter procedure Neurology Comment on above: follow up Migraines, follow up Start: 06-21-2024 BP Controlled (<130/80) BP Controlled (<130/80) [facility] Start: 06-13-2024 [facility] Start: 06-11-2024 End: 06-11-2024 Nursing evaluation of patient and report 06/11/2024 3:40 PM EST Nurse Visit Urology [address] [place] [address] Wstr, Nurse Urol [facility] [address] [place] [address] SPT tube change Urology Comment on above: SPT tube change Start: 06-09-2024 [facility] Start: 05-28-2024 Glaucoma screening Dilated Retinal Exam [facility] Comment on above: Postponed from 10/26/2023 (Currently Mireya eduled) Start: 05-07-2024 End: 05-07-2024 Nursing evaluation of patient and report 05/07/2024 3:40 PM EST Nurse Visit Urology [address] [place] [address] Wstr, Nurse Urol [facility] [address] [place] [address] SPT tube change Urology Comment on above: SPT tube change Start: 05-03-2024 End: 05-03-2024 Patient encounter procedure 05/03/2024 2:30 PM EST Office Visit [facility] Ophthalmology [address] [place] [address] Sabra Nevarez, OD [address] [place] [address] Diabetic eye exam for dr brannon Ophthalmology Comment on above: Diabetic eye exam for dr brannon Start: 05-02-2024 Screening for malignant neoplasm of cervix Cervical Cancer Screening [facility] Start: 04-29-2024 End: 04-29-2024 ambulatory 04/29/2024 4:15 PM EST Results Only [place] [facility] [address] [place] [address] [place] [facility] Start: 04-28-2024 End: 07-28-2024 Comprehensive metabolic 2000 panel - Serum or Plasma COMPREHENSIVE METABOLIC PANEL Lab Routine Diabetes mellitus treated with insulin (HCC) Expected: 04/28/2024, Expires: 07/28/2024 [facility] Work Phone: Comment on above: Expected: 04/28/2024, Expires: Start: 04-28-2024 End: 07-28-2024 Hemoglobin A1c in Blood HEMOGLOBIN A1C Lab Routine Diabetes mellitus treated with insulin (HCC) Expected: 04/28/2024, Expires: 07/28/2024 [facility] Comment on above: Expected: 04/28/2024, Expires: Start: 04-28-2024 End: 07-28-2024 LIPID PANEL, NONFASTING LIPID PANEL, NONFASTING Lab Routine Diabetes mellitus treated with insulin (HCC) Expected: 04/28/2024, Expires: 07/28/2024 [facility] Comment on above: Expected: 04/28/2024, Expires: 5 Start: 04-28-2024 End: 07-28-2024 Microalbumin/Creatinine [Mass Ratio] in Urine ALBUMIN/CREATININE RATIO, URINE Lab Routine Diabetes mellitus treated with insulin (HCC) Expected: 04/28/2024, Expires: 07/28/2024 [facility] Comment on above: Expected: 04/28/2024, Expires: Start: 04-24-2024 End: 04-24-2024 Patient encounter procedure 04/24/2024 3:40 PM EST Appointment Mammogram [address] [place] [address] Encounter for screening mammogram for breast cancer [Z12.31] Mammogram Comment on above: Encounter for screening mammogram for br east cancer [Z12.31] Start: 04-18-2024 End: 04-18-2024 Patient encounter procedure 04/18/2024 4:00 PM EST Appointment Radiology [address] [place] [address] Thyroid cyst [E04.1] Radiology Comment on above: Thyroid cyst [E04.1] Start: 04-15-2024 End: 04-15-2024 Follow-up encounter 04/15/2024 11:50 AM EST [facility] Hematology/Oncology [address] [place] [address] [place] [address] [place] [address] lab follow up Hematology/Oncology Comment on above: lab follow up Start: 04-12-2024 Hepatitis B surface antibody level LDL Cholesterol [facility] Start: 04-10-2024 End: 04-10-2024 Patient encounter procedure 04/10/2024 3:40 PM EST Office Visit Family [facility] [place] [address] [place] [address] Will Brannon MD [address] [place] [address] 6 month follow up Family Medicine [place] Comment on above: 6 month follow up Start: 04-10-2024 End: 07-10-2024 Magnesium [Mass/volume] in Serum or Plasma MAGNESIUM Lab Routine Hypomagnesemia Expected: 04/10/2024, Expires: 07/10/2024 [facility] Comment on above: Expected: 04/10/2024, Expires: Start: 04-10-2024 End: 07-10-2024 Thyrotropin [Units/volume] in Serum or Plasma THYROID STIMULATING HORMONE Lab Routine Thyroid cyst Expected: 04/10/2024, Expires: 07/10/2024 [facility] Comment on above: Expected: 04/10/2024, Expires: Start: 04-05-2024 Mammography Mammogram Screening [facility] Start: 04-05-2024 Screening for malignant neoplasm of breast Mammogram Screening [facility] Start: 04-04-2024 End: 04-04-2024 ambulatory 04/04/2024 10:00 AM EST Results Only [place] 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] Start: 04-02-2024 End: 04-02-2024 Nursing evaluation of patient and report 04/02/2024 3:40 PM EST Nurse Visit Urology [address] [place] [address] Wstr, Nurse Urol [facility] [address] [place] [address] SPT tube change Urology Comment on above: SPT tube change Start: 04-01-2024 End: 04-01-2024 Patient encounter procedure 04/01/2024 3:00 PM EST Office Visit General Surgery [address] [place] [address] Mellisa Paul APRN.DIRECTOR [employer] [address] [place] [address] 03-25 EGD follow up General Surgery Comment on above: 03-25 EGD follow up Start: 03-29-2024 Annual PCP Team Chronic Disease Visit Annual PCP Team Chronic Disease Visit [facility] Start: 03-25-2024 End: 03-25-2024 Patient encounter procedure 03/25/2024 11:30 AM EDT Appointment Ambulatory Surgery [address] [place] [address] Xavier Josue MD [address] [place] [address] Ambulatory Surgery Start: 03-21-2024 End: 03-21-2024 ambulatory 03/21/2024 2:40 PM EDT Visit (SP) Office Hematology/Oncology [address] [place] [address] [place] [address] [place] [address] 3 MO OV/US? Hematology/Oncology Comment on above: 3 MO OV/US? 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] Start: 03-06-2024 End: 03-06-2024 Patient encounter procedure 03/06/2024 9:15 AM EDT Office Visit Endocrinology [address] [place] [address] Nilda Underwood, SLIP MAKER.DIRECTOR [employer]ANDARDS [address] [place] [address] 3 MTH F/U Endocrinology Comment on above: 3 MTH F/U Start: 03-05-2024 End: 06-04-2024 Bacteria identified in Urine by Culture URINE CULTURE Microbiology Routine Acute cystitis without hematuria Expected: 03/05/2024, Expires: 06/04/2024 [facility] Work Phone: Comment on above: Expected: 03/05/2024, Expires: Start: 03-04-2024 End: 03-04-2024 Patient encounter procedure 03/04/2024 2:45 PM EDT Office Visit General Surgery [address] [place] [address] Xavier Josue MD [address] [place] [address] Having trouble swallowing food and medicine not sure if my thyroid cyst has grown again mychart request General Surgery Comment on above: Having trouble swallowing food and medic ine not sure if my thyroid cyst has grown again mychart request Start: 02-27-2024 End: 02-27-2024 Nursing evaluation of patient and report 02/27/2024 3:40 PM EDT Nurse Visit Urology [address] [place] [address] Wstr, Nurse Urol [facility] [address] [place] [address] SPT tube change Urology Comment on above: SPT tube change Start: 02-19-2024 End: 02-19-2024 Patient encounter procedure 02/19/2024 2:45 PM EDT Office Visit [facility] [address] [place] [address] Sabra Nevarez, OD [address] [place] [address] Diabetic eye exam Ophthalmology Comment on above: Diabetic eye exam Start: 01-30-2024 End: 01-30-2024 Nursing evaluation of patient and report 01/30/2024 3:40 PM EDT Nurse Visit Urology [address] [place] [address] Wstr, Nurse Urol [facility] [address] [place] [address] SPT tube change Urology Comment on above: SPT tube change Start: 01-28-2024 Influenza vaccination [facility] Start: 01-16-2024 End: 01-16-2024 Nursing evaluation of patient and report 01/16/2024 4:00 PM EDT Nurse Visit Endocrinology [address] [place] [address] Ramana Bourgeois, RN [address] [address] What foods are best for me Endocrinology Comment on above: What foods are best for me Start: 01-03-2024 End: 01-03-2024 Patient encounter procedure 01/03/2024 4:15 PM EDT Office Visit Neurology [address] [place] [address] Araceli Torres PA-C [address] [place] [place] [address] 3 month follow up Neurology Comment on above: 3 month follow up Start: 01-02-2024 End: 01-02-2024 Nursing evaluation of patient and report 01/02/2024 3:40 PM EDT Nurse Visit Urology [address] [place] [address] Wstr, Nurse Urol [facility] [address] [place] [address] SPT tube change Urology Comment on above: SPT tube change Start: 01-02-2024 Hemoglobin A1c measurement HbA1C [facility] Start: 12-20-2023 End: 12-20-2023 ambulatory 12/20/2023 10:00 AM EDT Visit (SP) Office Hematology/Oncology [address] [place] [address] [place] [address] [place] [address] SURVEYOR'S ASSISTANT/SPLENIC INFARCT/REF DEVIN GEORGE* - FIRST AVAILABLE Hematology/Oncology Comment on above: SURVEYOR'S ASSISTANT/SPLENIC INFARCT/REF DEVIN GEORGE* - FIRST AVAILABLE Start: 12-06-2023 End: 12-06-2023 Patient encounter procedure 12/06/2023 10:15 AM EDT Office Visit Endocrinology [address] [place], [place] [address] Nilda Underwood APRN.DIRECTOR [employer]OR [employer]ANDARDS [address] [place] [address] RESCHEDULED FROM 10/30 Type 2 diabetes mellitus [...] PM EDT Office Visit Urology [address] [place], [place] [id number] Cory Box PA-C [address] [place] [address] Yearly visit/SPT tube change / TIME OK PER IRAS[facility] Urology Comment on above: Yearly visit/SPT tube change / TIME OK P ANJUM VILLALPANDO Start: 12-03-2023 BP CONTROLLED (<130/80) BP CONTROLLED (<130/80) [facility] Start: 11-08-2023 End: 11-08-2023 Nursing evaluation of patient and report 11/08/2023 2:00 PM EDT Nurse Visit Endocrinology [address] [place], [place] [id number] Ramana Bourgeois, RN [address] [id number] 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) [...] report 11/01/2023 11:00 AM EDT Nurse Visit [facility] [address] [place] [address] Michele Cardozo RN In person 2wk post op [facility] Comment on above: In person 2wk post op Start: 10-31-2023 End: 10-31-2023 Nursing evaluation of patient and report 10/31/2023 3:40 PM EDT Nurse Visit Urology [address] [place], [place] [id number] Wstr, Nurse Urol [facility] [address] [place] [address] SPT change Urology Comment on above: SPT change Start: 10-31-2023 End: 10-31-2023 Patient encounter procedure 10/31/2023 1:00 PM EDT Office Visit Endocrinology [address] [place], [place] [phone] Sandrita Johnson MD [address] [place], [place] [id number] 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) [...] Start: 10-26-2023 Glaucoma screening Dilated Retinal Exam [facility] Start: 10-26-2023 Hepatitis C antibody, confirmatory test Dilated Retinal Exam [facility] Start: 10-20-2023 End: 10-20-2023 Admission to same day surgery center 10/20/2023 7:30 AM EDT - 10/20/2023 12:30 PM EDT Surgery Admitting [address] [place] [address] [place] [address] [place] [address] LUMBAR LAMINECTOMY REVISION L3-L5 W/ RELEASE OF [...] 7:30 AM EDT Hospital Encounter Admitting [address] [place] [address] [place] [address] [place] [address] 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] Admitting Comment on above: 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] Start: 10-13-2023 End: 10-13-2023 Nursing evaluation of patient and report 10/13/2023 11:00 AM EDT Nurse Visit [facility] [address] [place] [address] Michele Cardozo, VERNON Phone Education [facility] Comment on above: Phone Education Start: 10-11-2023 End: 01-10-2024 CONFIRM BLOOD TYPE [facility] Comment on above: Expected: 10/11/2023, Expires: Start: 10-11-2023 End: 01-10-2024 TYPE AND SCREEN,30 DAY [facility] Work Phone: Comment on above: Expected: 10/11/2023, Expires: Start: 10-11-2023 End: 10-11-2023 ambulatory 10/11/2023 10:30 AM EDT Results Only [facility] [address] [place] [address] preop [facility] Comment on above: preop Start: 10-11-2023 End: 10-11-2023 Anesthesia consultation 10/11/2023 9:20 AM EDT PAT Pre Anesthesia [address] [place] [address] 1, Pacc [place] [address] [place] [address] PRE OP Pre Anesthesia Comment on above: PRE OP Start: 10-10-2023 End: 01-09-2024 STAPHYLOCOCCUS AUREUS & MRSA SCREEN, PCR, NASAL STAPHYLOCOCCUS AUREUS & MRSA SCREEN, PCR, NASAL Lab Routine Pre-op testing Expected: 10/10/2023 (Approximate), Expires: 01/09/2024 [facility] Work Phone: Comment on above: Expected: 10/10/2023 (Approximate), Expi res: 01/09/2024 Start: 10-09-2023 End: 10-09-2023 Patient encounter procedure 10/09/2023 4:00 PM EDT Office Visit [facility] [address] [place], [place] [address] Devin Geogre APRN.[facility] [address] [place] [address] follow up- discuss labs [facility] Comment on above: follow up- discuss labs Start: 10-07-2023 [facility] Start: 10-03-2023 End: 10-03-2023 Nursing evaluation of patient and report 10/03/2023 3:40 PM EDT Nurse Visit Urology [address] [place] [id number] Wstr, Nurse Urol [facility] [address] [place] [id number] SPT change Urology Comment on above: SPT change Start: 10-02-2023 End: 10-02-2023 Patient encounter procedure 10/02/2023 2:00 PM EDT Office [place] [address] pr eop [facility] Comment on above: pr eop Start: 09-28-2023 End: 09-28-2023 Patient encounter procedure 09/28/2023 5:20 PM EDT Office Visit Family Medicine [place] [address] [facility] [place], [place] [phone] Devin George APRN.DIRECTOR [employer] [address] [place], [place] [phone] Medicare wellness [facility] Comment on above: Medicare wellness Start: 09-28-2023 End: 12-28-2023 CBC W Auto Differential panel - Blood COMPLETE BLOOD COUNT AND DIFFERENTIAL Lab Routine Medication management Expected: 09/28/2023, Expires: 12/28/2023 [facility] Comment on above: Expected: 09/28/2023, Expires: 4 Start: 09-28-2023 End: 12-28-2023 Comprehensive metabolic 2000 panel - Serum or Plasma COMPREHENSIVE METABOLIC PANEL Lab Routine 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) Diabetes mellitus with peripheral vascular disease (HCC) Bilateral leg edema Expected: 09/28/2023, Expires: 12/28/2023 [facility] Comment on above: Expected: 09/28/2023, Expires: 4 Start: 09-28-2023 End: 12-28-2023 Hemoglobin A1c in Blood HEMOGLOBIN A1C Lab Routine 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) Diabetes mellitus with peripheral vascular disease (HCC) Expected: 09/28/2023, Expires: 12/28/2023 [facility] Work Phone: Comment on above: Expected: 09/28/2023, Expires: Start: 09-28-2023 End: 12-28-2023 LIPID PANEL, NONFASTING LIPID PANEL, NONFASTING Lab Routine Mixed hyperlipidemia Expected: 09/28/2023, Expires: 12/28/2023 [facility] Comment on above: Expected: 09/28/2023, Expires: Start: 09-28-2023 End: 12-28-2023 Thyrotropin [Units/volume] in Serum or Plasma THYROID STIMULATING HORMONE Lab Routine Low TSH level Hyperthyroidism Expected: 09/28/2023, Expires: 12/28/2023 [facility] Comment on above: Expected: 09/28/2023, Expires: Start: 08-30-2023 Hepatitis B surface antibody level LDL CHOLESTEROL [facility] Start: 08-25-2023 ANNUAL PCP TEAM CHRONIC DISEASE VISIT ANNUAL PCP TEAM CHRONIC DISEASE VISIT [facility] Start: 08-25-2023 BP CONTROLLED (<130/80) BP CONTROLLED (<130/80) [facility] Start: 08-13-2023 [facility] Start: 08-13-2023 [facility] Start: 08-13-2023 Bacteria identified in Urine by Culture [facility] Start: 07-20-2023 BP CONTROLLED (<130/80) BP CONTROLLED (<130/80) [facility] Start: 07-13-2023 Hemoglobin A1c measurement HbA1C [facility] Start: 07-13-2023 Hemoglobin A1c/Hemoglobin.total in Blood HbA1C [facility] Start: 05-12-2023 End: 08-11-2023 Thyrotropin [Units/volume] in Serum or Plasma TSH BLD Lab Routine Low TSH level Hyperthyroidism Expected: 05/12/2023, Expires: 08/11/2023 [facility] Work Phone: Comment on above: Expected: 05/12/2023, Expires: Start: 05-12-2023 End: 08-11-2023 Thyroxine (T4) free [Mass/volume] in Serum or Plasma T4 FREE/FREE THYROX Lab Routine Low TSH level Hyperthyroidism Expected: 05/12/2023, Expires: 08/11/2023 [facility] Work Phone: Comment on above: Expected: 05/12/2023, Expires: 4 Start: 05-12-2023 End: 08-11-2023 Triiodothyronine (T3) Free [Mass/volume] in Serum or Plasma T3 FREE BLD Lab Routine Low TSH level Hyperthyroidism Expected: 05/12/2023, Expires: 08/11/2023 [facility] Work Phone: Comment on above: Expected: 05/12/2023, Expires: 4 Start: 05-02-2023 End: 08-01-2023 CBC panel - Blood by Automated count CBC Lab Routine Abnormal uterine bleeding (AUB) Expected: 05/02/2023, Expires: 08/01/2023 [facility] Work Phone: Comment on above: Expected: 05/02/2023, Expires: 4 Start: 04-21-2023 End: 04-21-2023 [facility] Start: 04-18-2023 Hemoglobin A1c/Hemoglobin.total in Blood HBA1C [facility] Start: 02-22-2023 BP CONTROLLED (<130/80) BP CONTROLLED (<130/80) [facility] Start: 02-16-2023 BP CONTROLLED (<130/80) BP CONTROLLED (<130/80) [facility] Start: 02-09-2023 ANNUAL PCP TEAM CHRONIC DISEASE VISIT ANNUAL PCP TEAM CHRONIC DISEASE VISIT [facility] Start: 02-09-2023 BP CONTROLLED (<130/80) BP CONTROLLED (<130/80) [facility] Start: 02-09-2023 Hepatitis B surface antibody level LDL CHOLESTEROL [facility] Start: 02-02-2023 [facility] Start: 02-02-2023 Bacteria identified in Urine by Culture Urine Culture [facility] Start: 01-27-2023 Influenza vaccination [facility] Start: 01-16-2023 End: 03-18-2023 Bacteria identified in Urine by Culture URINE CULTURE Microbiology Routine Recurrent UTI Expected: 01/16/2023, Expires: 03/18/2023 [facility] Work Phone: Comment on above: Expected: 01/16/2023, Expires: 3 Start: 01-12-2023 Mammography [facility] Start: 12-12-2022 [facility] Start: 12-12-2022 Bacteria identified in Urine by Culture Urine Culture [facility] Start: 12-09-2022 BP CONTROLLED (<130/80) BP CONTROLLED (<130/80) [facility] in Start: 11-28-2022 Hemoglobin A1c/Hemoglobin.total in Blood HBA1C [facility] Start: 08-16-2022 [facility] Start: 08-16-2022 Blood culture [facility] Start: 08-16-2022 End: 08-16-2022 [facility] Start: 07-29-2022 Hepatitis B surface antibody level LDL CHOLESTEROL [facility] Start: 07-28-2022 ANNUAL PCP TEAM CHRONIC DISEASE VISIT ANNUAL PCP TEAM CHRONIC DISEASE VISIT [facility] Start: 07-28-2022 BP CONTROLLED (<130/80) BP CONTROLLED (<130/80) [facility] in Start: 07-28-2022 COVID-19 VACCINE (#1) COVID-19 VACCINE (#1) [facility] Comment on above: Postponed from 1986 (Declined at t his time) Postponed from 05/14 (Declined at this time) Start: 07-28-2022 COVID-19 VACCINE (1) COVID-19 VACCINE (1) [facility] Comment on above: Postponed from 1986 (Declined at t his time) Start: 07-28-2022 HPV TESTING HPV TESTING [facility] Start: 07-28-2022 PAP TESTING PAP TESTING [facility] Start: 07-18-2022 Patient discharge [facility] Start: 07-16-2022 Inhalation therapy procedure [facility] Start: 07-15-2022 Referral to service [facility] Start: 07-15-2022 [facility] Start: 07-14-2022 [facility] Start: 07-13-2022 Care planning and problem solving actions [facility] Start: 07-13-2022 Consultation [facility] Start: 07-13-2022 Patient referral to dietitian [facility] Start: 07-13-2022 [facility] Start: 07-13-2022 Application of intermittent pneumatic compression device [facility] Start: 07-13-2022 Following clinical pathway protocol [facility] Start: 07-13-2022 Assessment of risk of venous thromboembolism [facility] Start: 07-13-2022 Care regimes management [facility] Start: 07-13-2022 Consultation for treatment [facility] Start: 07-13-2022 Elevation of affected extremity [facility] Start: 07-13-2022 Insertion of catheter into peripheral vein [facility] Start: 07-13-2022 Measuring intake and output [facility] Start: 07-13-2022 Notification of physician [facility] Start: 07-13-2022 Providing care according to standard [facility] Start: 07-13-2022 Provision of activity privileges [facility] Start: 07-13-2022 Referral to sales porter [facility] Start: 07-13-2022 [facility] Start: 07-13-2022 Verification routine [facility] Start: 07-13-2022 Admission procedure [facility] Start: 07-12-2022 End: 07-13-2022 Blood culture [facility] Start: 07-07-2022 Hepatitis C antibody, confirmatory test DILATED RETINAL EXAM [facility] Start: 04-15-2022 Hemoglobin A1c/Hemoglobin.total in Blood HBA1C [facility] Start: 04-11-2022 Following clinical pathway protocol [facility] Start: 02-28-2022 End: 03-14-2022 SARS-CoV-2 (COVID-19) RNA [Presence] in Respiratory specimen by MALIK with probe detection [facility] Work Phone: Comment on above: Expected: 02/28/2022, Expires: Start: 02-22-2022 End: 04-24-2022 T4/FTI/T4U T4/FTI/T4U Lab Routine Thyroid nodule Pharyngeal dysphagia Globus sensation Tenderness of neck Expected: 02/22/2022, Expires: 04/24/2022 [facility] Work Phone: Comment on above: Expected: 02/22/2022, Expires: 2 Start: 02-22-2022 End: 04-24-2022 Thyrotropin [Units/volume] in Serum or Plasma TSH BLD Lab Routine Thyroid nodule Pharyngeal dysphagia Globus sensation Tenderness of neck Expected: 02/22/2022, Expires: 04/24/2022 [facility] Work Phone: Comment on above: Expected: 02/22/2022, Expires: 2 Start: 02-22-2022 End: 04-24-2022 TSH RECEPTOR AB TSH RECEPTOR AB Lab Routine Thyroid nodule Pharyngeal dysphagia Globus sensation Tenderness of neck Expected: 02/22/2022, Expires: 04/24/2022 [facility] Work Phone: Comment on above: Expected: 02/22/2022, Expires: 2 Start: 02-09-2022 End: 04-11-2022 Basic metabolic 2000 panel - Serum or Plasma [facility] Work Phone: Comment on above: Expected: 02/09/2022, Expires: 2 Start: 02-09-2022 End: 04-11-2022 LIPID PANEL, NONFASTING [facility] Work Phone: Comment on above: Expected: 02/09/2022, Expires: 2 Start: 02-09-2022 End: 04-11-2022 Urinalysis complete panel - Urine [facility] Work Phone: Comment on above: Expected: 02/09/2022, Expires: 2 Start: 01-27-2022 Influenza vaccination INFLUENZA (#1) [facility] Start: 12-09-2021 End: 02-08-2022 ALGN LATEX IGE [facility] Work Phone: Comment on above: Expected: 12/09/2021, Expires: 2 Start: 11-22-2021 Patient discharge [facility] Work Phone: Start: 11-21-2021 Following clinical pathway protocol [facility] Work Phone: Start: 11-21-2021 Referral to occupational therapist [facility] Work Phone: Start: 11-21-2021 Referral to service [facility] Work Phone: Start: 11-21-2021 Assessment of risk of venous thromboembolism [facility] Work Phone: Start: 11-21-2021 Care regimes management [facility] Work Phone: Start: 11-21-2021 Consultation for treatment [facility] Work Phone: Start: 11-21-2021 Elevation of affected extremity [facility] Work Phone: Start: 11-21-2021 Insertion of catheter into peripheral vein [facility] Work Phone: Start: 11-21-2021 Providing care according to standard [facility] Work Phone: Start: 11-21-2021 Provision of activity privileges [facility] Work Phone: Start: 11-21-2021 Wound care [facility] Work Phone: Start: 11-21-2021 [facility] Work Phone: Start: 11-21-2021 Verification routine [facility] Work Phone: Start: 11-21-2021 Admission procedure [facility] Work Phone: Start: 11-21-2021 Patient referral to dietitian [facility] Work Phone: Start: 11-20-2021 End: 11-20-2021 [facility] Work Phone: Start: 11-20-2021 End: 11-20-2021 Blood culture [facility] Work Phone: Start: 2021 Mammography MAMMOGRAM [facility] Start: 11-05-2021 Bacteria identified in Urine by Culture Urine Culture [facility] Work Phone: Start: 10-29-2021 Hemoglobin A1c/Hemoglobin.total in Blood [facility] Start: 08-26-2021 End: 10-26-2021 Pyridoxine [Mass/volume] in Serum or Plasma [facility] Work Phone: Comment on above: Expected: 08/26/2021, Expires: Start: 08-20-2021 Emergency department visit low/moder severity EMERGENCY DEPT VISIT [facility] Work Phone: Start: 2008 HPV Vaccine (1 - 3-dose SCDM series) HPV Vaccine (1 - 3-dose SCDM series) [facility] Start: 2000 HEPATITIS B (1 of 3 - Risk 3-dose series) HEPATITIS B (1 of 3 - Risk 3-dose series) [facility] Start: 05-14-1982 COVID-19 VACCINE (#1) COVID-19 VACCINE (#1) [facility] Start: 1981 HEPATITIS B (1 of 3 - 3-dose series) HEPATITIS B (1 of 3 - 3-dose series) [facility] Acid fast bacilli culture [facility] ALLERGEN SKIN TEST-LATEX ALLERGE N SKIN TEST-LATEX Procedures Routine Anaphylaxis, initial encounter Ordered: 12/09/2021 [facility] Work Phone: Comment on above: Ordered: 12/09/2021 Anaerobic Culture Anaerobic Culture [facility] Anaerobic microbial culture Anaerobic Culture [facility] Bacteria identified in Blood by Culture Blood Culture [facility] Bacteria identified in Unspecified specimen by Anaerobe culture [facility] Bacteria identified in Urine by Culture Urine Culture [facility] Blood culture [facility] Work Phone: ECG COMPLETE ECG COMPLETE ECG Routine Paroxysmal SVT (supraventricular tachycardia) (HCC) Ordered: 09/28/2023 [facility] Comment on above: Ordered: 09/28/2023 End: 03-04-2025 EGD DIAGNOSTIC EGD DIAGNOSTIC Endoscopy Routine Oropharyngeal dysphagia 1 Occurrences starting 03/04/2024 until 03/04/2025 [facility] Work Phone: Comment on above: 1 Occurrences starting 03/04/2024 until 03/04/2025 End: 08-26-2022 EMG(NEURO/NI) EMG(NEURO/NI) EMG Routine Neuropathy Spinal stenosis of lumbar region without neurogenic claudication 1 Occurrences starting 08/26/2021 until 08/26/2022 [facility] Work Phone: Comment on above: 1 Occurrences starting 08/26/2021 until 08/26/2022 End: 03-16-2024 ANGIE SCREENING ANGIE SCREENING Radiology Routine Encounter for screening mammogram for breast cancer 1 Occurrences starting 02/15/2023 until 03/16/2024 [facility] Work Phone: Comment on above: 1 Occurrences starting 02/15/2023 until 03/16/2024 End: 05-10-2025 MG Breast Screening ANGIE SCREENING Radiology Routine Encounter for screening mammogram for breast cancer 1 Occurrences starting 04/10/2024 until 05/10/2025 [facility] Comment on above: 1 Occurrences starting 04/10/2024 until 05/10/2025 MG Breast Screening ANGIE SCREENIN G Radiology Routine Encounter for screening mammogram for breast cancer 04/24/2024 3:34 PM EST [facility] Work Phone: Microbial culture, routine Wound Culture [facility] Microscopic observat ion [Identifier] in Unspecified specimen by Gram stain Gram Stain [facility] Microscopic observat ion [Identifier] in Unspecified specimen by Gram stain [facility] End: 08-16-2024 MR Cervical spine WO contrast MRI CERVICAL SPINE WO IVCON Radiology Routine Spinal stenosis of cervical region 1 Occurrences starting 07/18/2023 until 08/16/2024 [facility] Work Phone: Comment on above: 1 Occurrences starting 07/18/2023 until 08/16/2024 End: 08-16-2024 MR Lumbar spine WO contrast MRI LUMBAR SPINE WO IVCON Radiology Routine Chronic bilateral low back pain without sciatica 1 Occurrences starting 07/18/2023 until 08/16/2024 [facility] Work Phone: Comment on above: 1 Occurrences starting 07/18/2023 until 08/16/2024 End: 08-16-2024 MR Thoracic spine WO contrast MRI THORACIC SPINE WO IVCON Radiology Routine Radiculopathy of lumbar region 1 Occurrences starting 07/18/2023 until 08/16/2024 [facility] Work Phone: Comment on above: 1 Occurrences starting 07/18/2023 until 08/16/2024 End: 09-25-2022 Mri brain brain stem w/o w/contrast material MRI BRAIN WO/W IVCON Radiology Routine Manley's palsy Facial weakness 1 Occurrences starting 08/26/2021 until 09/25/2022 [facility] Work Phone: Comment on above: 1 Occurrences starting 08/26/2021 until 09/25/2022 End: 05-31-2024 Mri brain brain stem w/o w/contrast material MRI BRAIN WO/W IVCON Radiology Routine Positional headache 1 Occurrences starting 05/02/2023 until 05/31/2024 [facility] Work Phone: Comment on above: 1 Occurrences starting 05/02/2023 until 05/31/2024 End: 05-31-2024 Mri spinal canal cervical w/o contrast matrl MRI CERVICAL SPINE WO IVCON Radiology Routine Abnormal reflex 1 Occurrences starting 05/02/2023 until 05/31/2024 [facility] Work Phone: Comment on above: 1 Occurrences starting 05/02/2023 until 05/31/2024 End: 09-25-2022 Mri spinal canal lumbar w/o contrast material MRI LUMBAR SPINE WO IVCON Radiology Routine Spinal stenosis of lumbar region without neurogenic claudication 1 Occurrences starting 08/26/2021 until 09/25/2022 [facility] Work Phone: Comment on above: 1 Occurrences starting 08/26/2021 until 09/25/2022 Mycobacterium sp identified in Unspecified specimen by Organism specific culture [facility] PAP TEST PAP TEST Lab Rou tomasa Encounter for screening for malignant neoplasm of cervix Ordered: 05/02/2023 [facility] Work Phone: Comment on above: Ordered: 05/02/2023 Patient Education [facility] Work Phone: Patient referral [facility] Work Phone: Percutaneous tests w/allergenic extracts ALLRGY SKN TST (EXTRACTS) IMMEDI Procedures Routine Anaphylaxis, initial encounter Ordered: 12/09/2021 [facility] Work Phone: Comment on above: Ordered: 12/09/2021 End: 05-01-2024 Polysomnogram POLYSOMNOGRAM (PSG) Procedures Routine Obstructive sleep apnea 1 Occurrences starting 05/02/2023 until 05/01/2024 [facility] Work Phone: Comment on above: 1 Occurrences starting 05/02/2023 until 05/01/2024 End: 01-14-2023 Screening mammography bi 2-view breast inc cad ANGIE SCREENING Radiology Routine Encounter for screening mammogram for breast cancer 1 Occurrences starting 12/15/2021 until 01/14/2023 [facility] Work Phone: Comment on above: 1 Occurrences starting 12/15/2021 until 01/14/2023 End: 08-31-2022 SUPRAPUBIC TUBE CHANGE SUPRAPUBIC TUBE CHANGE Procedures Routine Neurogenic dysfunction of the urinary bladder Once per month for 12 Occurrences starting 08/31/2021 until 08/31/2022 [facility] Work Phone: Comment on above: Once per month for 12 Occurrences starti ng 08/31/2021 until 08/31/2022 End: 09-07-2023 SUPRAPUBIC TUBE CHANGE SUPRAPUBIC TUBE CHANGE Procedures Routine Neurogenic bladder 99 Occurrences starting 09/06/2022 until 09/07/2023 [facility] Work Phone: Comment on above: 99 Occurrences starting 09/06/2022 until 09/07/2023 End: 09-04-2024 SUPRAPUBIC TUBE CHANGE SUPRAPUBIC TUBE CHANGE Procedures Routine Neurogenic bladder 99 Occurrences starting 09/05/2023 until 09/04/2024 [facility] Work Phone: Comment on above: 99 Occurrences starting 09/05/2023 until 09/04/2024 End: 10-04-2025 SUPRAPUBIC TUBE CHANGE SUPRAPUBIC TUBE CHANGE Procedures Routine Neurogenic bladder 99 Occurrences starting 10/07/2024 until 10/04/2025 [facility] Work Phone: Comment on above: 99 Occurrences starting 10/07/2024 until 10/04/2025 SURGICAL PATHOLOGY [facility] Work Phone: Comment on above: Release Upon Ordering for 1 Occurrences starting 03/25/2024, 1 completed URINALYSIS, REFLEX MICROSCOPIC URINALYSIS, REFLEX MICROSCOPIC Lab Routine Screening for genitourinary condition Ordered: 06/13/2022 [facility] Work Phone: Comment on above: Ordered: 06/13/2022 URINALYSIS, REFLEX MICROSCOPIC URINALYSIS, REFLEX MICROSCOPIC Lab Routine Screening for genitourinary condition Ordered: 07/20/2022 [facility] Work Phone: Comment on above: Ordered: 07/20/2022 URINALYSIS, REFLEX MICROSCOPIC URINALYSIS, REFLEX MICROSCOPIC Lab Routine Screening for genitourinary condition Ordered: 01/16/2023 [facility] Work Phone: Comment on above: Ordered: 01/16/2023 Urine culture [facility] End: 05-31-2024 Us pelvic nonobstetric image dcmtn limited/f/u US FEMALE PELVIS TRANSABD LTD Radiology Routine Abnormal uterine bleeding (AUB) 1 Occurrences starting 05/02/2023 until 05/31/2024 [facility] Work Phone: Comment on above: 1 Occurrences starting 05/02/2023 until 05/31/2024 End: 03-11-2023 Us soft tissue head & neck real time imge docm US THYROID/PARATHYROID Radiology Routine Thyroid cyst 1 Occurrences starting 02/09/2022 until 03/11/2023 [facility] Work Phone: Comment on above: 1 Occurrences starting 02/09/2022 until 03/11/2023 US Spleen US ABD SPLEEN Ra diology Routine Splenic infarct 03/18/2024 1:20 PM EDT [facility] Work Phone: End: 05-10-2025 US Thyroid gland US THYROID/PARATHYROID Radiology Routine Thyroid cyst 1 Occurrences starting 04/10/2024 until 05/10/2025 [facility] Work Phone: Comment on above: 1 Occurrences starting 04/10/2024 until 05/10/2025 US Thyroid gland US THYROID/PARA THYROID Radiology Routine Thyroid cyst 04/18/2024 4:16 PM EST [facility] Work Phone: End: 05-31-2024 Us transvaginal US FEMALE PELVIS TRANSVAG Radiology Routine Abnormal uterine bleeding (AUB) 1 Occurrences starting 05/02/2023 until 05/31/2024 [facility] Work Phone: Comment on above: 1 Occurrences starting 05/02/2023 until 05/31/2024 Wound Culture Wound Culture [facility] Wound microscopy, cu lture and sensitivities [facility] X-ray exam of abdomen XR COLONIC TRANSIT IMAGE 3 Radiology Routine Neurogenic bowel 08/20/2021 4:04 PM EDT [facility] Work Phone: [facility] Immunizations Immunization Date Immunization Notes Care Provider [facility] 01-24-2025 pneumococcal conjuga te (PCV20) vaccine, 20 valent (PREVNAR 20) Will Brannon MD Work Phone: [facility] 08-29-2025 pneumococcal Conjuga te, unspecified formulation Will Brannon MD Work Phone: [facility] 03-02-2022 influenza, injectabl e, quadrivalent, preservative free [facility] 03-02-2022 influenza, seasonal, injectable Dr. Will Brannon Work Phone: [facility] 03-02-2022 influenza virus vacc ine, unspecified formulation Will Brannon MD Work Phone: [facility] 03-23-2021 tetanus toxoid, redu modesto diphtheria toxoid, and acellular pertussis vaccine, adsorbed [employer] Work Phone: [facility] 03-08-2021 influenza, injectabl e, quadrivalent, preservative free Dr. Will Brannon MD Work Phone: [facility] 03-08-2021 influenza, seasonal, injectable [employer] Work Phone: [facility] Work Phone: 03-12-2020 influenza, seasonal, injectable [employer] Work Phone: [facility] 02-27-2020 Influenza virus vaccine [facility] 02-27-2020 influenza, seasonal, injectable, preservative free Too Parker MD Work Phone: [facility] 02-26-2019 Influenza virus vaccine [facility] 02-26-2019 influenza, seasonal, injectable, preservative free Too Parker MD Work Phone: [facility] 04-24-2018 influenza virus vacc ine, unspecified formulation [employer] Work Phone: [facility] Work Phone: 04-24-2018 influenza, injectabl e, quadrivalent, preservative free Dr. Will Brannon MD Work Phone: [facility] 02-20-2018 influenza, injectabl e, quadrivalent, preservative free [facility] 02-20-2018 influenza, seasonal, injectable [facility] 03-07-2017 influenza, injectabl e, quadrivalent, preservative free Dr. Will Brannon MD Work Phone: [facility] 03-07-2017 influenza, seasonal, injectable [employer] Work Phone: [facility] 06-17-2016 pneumococcal polysaccharide vaccine, 23 valent [employer] Work Phone: [facility] 03-25-2016 influenza, injectabl e, quadrivalent, preservative free Dr. Will Brannon MD Work Phone: [facility] 03-25-2016 influenza, seasonal, injectable [employer] Work Phone: [facility] 06-01-2015 pneumococcal conjuga te vaccine, 13 valent [employer] Work Phone: [facility] Work Phone: 01-27-2015 influenza, injectabl e, quadrivalent, preservative free [facility] 01-27-2015 influenza, seasonal, injectable [facility] 03-27-2014 Influenza virus vaccine [facility] 03-27-2014 influenza, seasonal, injectable, preservative free Too Parker MD Work Phone: [facility] 09-08-2009 tetanus toxoid, redu modesto diphtheria toxoid, and acellular pertussis vaccine, adsorbed [employer] Work Phone: [facility] Work Phone: Payers Date Payer Category Payer Self-pay [id number] 2021 Medicaid [id number] 2021 Medicare [id number] 2021 Unknown [id number] 2017 [place] [id number] 2017-Present [phone] [address] [place] [address] Medicaid [id number] 2016 Medicaid [id number] 2016 Medicare MEDICARE MEDICAR E A AND B [id number] 2016-Present [phone] [address] [address] [place] [address] Medicare [id number] 2016 Medicare [id number] [id number] 2016 Medicare [id number] 1981 Unknown [id number] 2.840.1.009729.3.579.2.651 1981 Unknown [id number] 2.840.1.847116.3.579.2 1981 Unknown [id number] 2.840.1.480630.3.579.2 1981 Unknown [id number] 2.840.1.570686.3.579.262 1981 Unknown [id number] 2.840.1.103348.3.579.2. 1981 Unknown [id number] 2.840.1.952605.3.579.2 1981 Unknown [id number] 2.840.1.207844.3.579.2. 1981 Unknown [id number] 2.840.1.679864.3.579.2 1981 Unknown [id number] 2.840.1.005576.3.579.2.62 1981 Unknown [id number] 2.16840.1.153345.3.579.2.627 1981 Unknown [id number] 2..840.1.664440.3.579.2.627 1981 Unknown [id number] 2..840.1.677055.3.579.2.627 1981 Unknown [id number] 2..840.1.075974.3.579.2.627 1981 Unknown [id number] 2.840.1.669103.3.579.2.627 Medicare [id number] Unknown [id number] 2.840.1.401933.3.579.2.462 Unknown [id number] 2.840.1.689361.3.579.2.462 Unknown [id number] 2.840.1.728736.3.579.2.462 Unknown [id number] 2.840.1.172640.3.579.2.462 Unknown [id number] .840.1.235638.3.579.2.462 Unknown [id number] 2.840.1.373275.3.579.2.462 Unknown [id number] 2.840.1.632011.3.579.2.462 Unknown [id number] .840.1.606116.3.579.2.462 Unknown [id number] 2.840.1.094406.3.579.2.462 Unknown [id number] .840.1.862134.3.579.2.462 Unknown [id number] 2.840.1.890712.3.579.2.462 Unknown [id number] 2.840.1.754833.3.579.2.462 Unknown [id number] 2.840.1.309342.3.579.2.462 Unknown [id number] 2.16.840.1.950968.3.579.2.462 Unknown [id number] 2.16.840.1.053581.3.579.2.462 Unknown [id number] 2.16.840.1.190522.3.579.2.462 Unknown [id number] 2.16.840.1.967229.3.579.2.462 Unknown [id number] 2.16.840.1.067185.3.579.2.462 Unknown [id number] 2.16.840.1.195533.3.579.2.462 Unknown [id number] 2.16.840.1.330952.3.579.2.462 Unknown [id number] 2.16.840.1.695758.3.579.2.462 Unknown [id number] 2.16.840.1.968822.3.579.2.462 Social History Date Type Detail Facility Start: 01-06-2011 End: 04-24-2022 Never smoked tobacco (finding) [facility] Sex Assigned At [facility] Start: 08-11-2021 End: 08-26-2021 Alcohol intake Current drinker of alcohol (finding) [facility] Start: 11-30-2017 History SDOH Alcohol Comment SOCIALLY [facility] Start: 1980 Sex Assigned At Not on file [facility] Start: 08-10-2021 End: 03-15-2022 Exposure to SARS-CoV-2 (event) Not sure [facility] Start: 08-27-2021 End: 09-06-2021 Exposure to SARS-CoV-2 (event) Unable to assess [facility] Work Phone: Start: 09-17-2021 End: 10-07-2023 Tobacco smoking status NHIS Unknown if ever smoked [facility] Start: 02-12-2020 None [facility] Start: 09-23-2020 Homeless [facility] Start: 10-14-2020 Non-smoker [facility] Start: 1980 Sex Assigned At Female [facility] Start: 09-22-2021 End: 01-24-2025 Alcohol intake Ex-drinker (finding) [facility] Start: 09-22-2021 History SDOH Alcohol Comment social [facility] Start: 01-06-2011 End: 02-09-2022 Tobacco use and exposure Smokeless tobacco non-user [facility] Work Phone: Start: 02-03-2022 History SDOH Alcohol Frequency 98 [facility] Start: 02-03-2022 History SDOH Alcohol Std Drinks 0 [facility] Start: 02-03-2022 History SDOH Alcohol Binge 1 [facility] Start: 02-03-2022 History SDOH Social Connections Phone 2 [facility] Start: 02-03-2022 History SDOH Social Connections Living 3 [facility] Start: 02-03-2022 History SDOH Stress [address] [facility] Start: 02-02-2022 End: 10-04-2022 History of Social function [facility] Start: 02-02-2022 End: 10-04-2022 Social connection and isolation panel [facility] Do you belong to any clubs or organizations such as adventism groups, [employer], fraternal or athletic groups, or school groups? No [facility] Are you now , , , , never or living with a partner? [facility] Start: 04-29-2012 End: 04-06-2025 How often to you have a drink containing alcohol? Patient refused [facility] How often do you hav e 6 or more drinks on 1 occasion? Never [facility] How hard is it for y ou to pay for the very basics like food, housing, medical care, and heating Somewhat hard [facility] Do you feel stress - tense, restless, nervous, or anxious, or unable to sleep at night because your mind is troubled all the time - these days [OSQ] Very much [facility] (I/We) worried soha er (my/our) food would run out before (I/we) got money to buy more. Sometimes true [facility] Do you belong to any clubs or organizations such as adventism groups, unions, fraternal or athletic groups, or school groups? Yes [facility] How often to you hav e a drink containing alcohol? Monthly or less [facility] How many standard drinks containing alcohol do you have on a typical day? 1 or 2 [facility] (I/We) worried soha er (my/our) food would run out before (I/we) got money to buy more. Never true [facility] Do you feel stress - tense, restless, nervous, or anxious, or unable to sleep at night because your mind is troubled all the time - these days [OSQ] Only a little [facility] Start: 11-27-2016 End: 08-16-2024 Sex Female (finding) [facility] Start: 04-24-2022 Sexual Orientation Heterosexual (fabrizio staley) [facility] NEGATED: Highlighted row [facility] NEGATED: Highlighted [facility] Medical Equipment Procedure Code Equipment Code Equipment Origin al Text Equipment Identifier Dates Mesh Bd Ventrali ght St 6in [place] [employer] Low Profile - [id number] Start: 12-11-2017 [id number], [id number] Start: 12-05-2017 End: 02-09-2022 Comment on above: [...] goal Functional Status Date Assessment Result Facility 04-06-2025 Functional Status Independent [facility] 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 Never 01/24/2025 10:14 AM EDT User, Osielhart Never [facility] 01-24-2025 Functional status Patient does n ot drink 01/24/2025 10:14 AM EDT User, Osielhart Patient does not drink [facility] 01-24-2025 How often do you hav e 6 or more drinks on 1 occasion? Never 01/24/2025 10:14 AM EDT User, Osielhart Never [facility] 08-16-2024 Functional status Unable to Assess;Post O p [facility] Work Phone: 08-15-2024 Functional status Ambulates [facility] Work Phone: 06-02-2024 Functional Status Independent [facility] 06-02-2024 Functional Status Standard Safet y ID band on, Allergy Band on, Call device within reach, Bed in low position, Wheels locked, Upper/Half-Length side-rails up, Phone within reach, personal items within reach, Bedside Cart Locked, Visitor at bedside [facility] 04-07-2024 Functional Status Activity Sabrinaemanuel ruiz Independent [facility] 04-06-2024 Functional Status Standard Safet y ID band on, Allergy Band on, Call device within reach, Bed in low position, Wheels locked, Upper/Half-Length side-rails up, Phone within reach, personal items within reach, Bedside Cart Locked, Visitor at bedside [facility] 02-26-2024 Functional Status Independent [facility] 02-02-2024 Functional Status Resting [facility] 11-22-2023 Functional Status Lunch Percent 50 [facility] 11-22-2023 Functional Status Room check performed [facility] 11-22-2023 Functional Status [facility] 11-22-2023 Functional Status Sequential Com pression Device bilateral knee high applied/on [facility] 11-22-2023 Functional Status [facility] 11-22-2023 Functional Status [facility] 11-21-2023 Functional Status [facility] 11-21-2023 Functional Status [facility] 11-21-2023 Functional Status [facility] 11-21-2023 Functional Status [facility] 11-20-2023 Functional Status Hospital bed [facility] 11-20-2023 Functional Status [facility] 11-20-2023 Functional Status [facility] 11-20-2023 Functional Status Multilevel home [facility] 11-18-2023 Functional Status [facility] 11-18-2023 Functional Status Sarwat Lynn [facility] 11-18-2023 Functional Status Sensory Deficits None [facility] 11-17-2023 Functional Status Awake, Resting [facility] 11-02-2023 Functional Status Activity Statu s ADL Awake, Watching TV [facility] 11-02-2023 Functional Status Sarwat Lynn [facility] 11-02-2023 Functional Status Sarwat Lynn [facility] 11-02-2023 Functional Status Room check performed [facility] 11-02-2023 Functional Status Demonstrates C orrect Call Light Use Yes [facility] 11-02-2023 Functional Status Sarwat Lynn [facility] 11-01-2023 Functional Status Repositions self [facility] 11-01-2023 Functional Status 7am-7pm Sarwat blanca [facility] 11-01-2023 [facility] 11-01-2023 Functional Status [facility] 11-01-2023 Functional [facility] 11-01-2023 Functional Status Sarwat Lynn [facility] 10-31-2023 Functional Status [facility] 10-31-2023 Functional Status [facility] 10-31-2023 Functional Status Sarwat Lynn [facility] 10-31-2023 Functional Status 1st floor bedr oom, 1st floor bathroom [facility] 10-31-2023 Functional Status Sarwat Ho [facility] 10-31-2023 Functional Status Sensory Deficits None A [facility] 09-25-2023 Functional Status Activity Sabrina tance Independent [facility] 09-24-2023 Functional Status Standard Safet y ID band on, Allergy Band on, Call device within reach, Bed in low position, Wheels locked, Upper/Half-Length side-rails up, Phone within reach, personal items within reach, Visitor at bedside, Safety level maintained [facility] 07-20-2023 Functional Status Independent Sarwat Lynn [facility] 07-19-2023 Functional Status Independent Sarwat Lynn [facility] 07-15-2023 Functional Status Independent Sarwat Lynn [facility] 07-15-2023 Functional Status Identified as high risk, Fall ID band on [facility] 06-07-2023 Functional Status Independent Sarwat Lynn [facility] 02-25-2023 Functional Status Room check performed [facility] 02-25-2023 Functional Status Sarwat Lynn [facility] 02-25-2023 Functional Status Sarwat Lynn [facility] 02-25-2023 Functional Status Refused Sarwat Lynn [facility] 02-25-2023 Functional Status Repositions self [facility] 02-25-2023 Functional Status Sarwat Lynn [facility] 02-24-2023 Functional Status Sarwat Ho [facility] 02-24-2023 Functional Status Sarwat Lynn [facility] 02-24-2023 Functional Status Sarwat Lynn [facility] 02-24-2023 Functional Status Sarwat Lynn [facility] 02-24-2023 Functional Status Sarwat Lynn [facility] 02-24-2023 Functional Status Sarwat Lynn [facility] 02-23-2023 Functional Status Sarwat Lynn [facility] 02-23-2023 Functional Status Sarwat Lynn [facility] 02-23-2023 Functional Status Patient refused [facility] 02-23-2023 [facility] Functional Status Sarwat Lynn [facility] 02-22-2023 Functional Status Independent Sarwat Lynn [facility] 02-22-2023 Functional Status Ambulation Amb ulation in Room, Up with assistance [facility] 02-22-2023 Functional Status Multilevel elisa e, 1st floor bedroom [facility] 02-22-2023 Functional Status Sensory Deficits None A [facility] 02-21-2023 Functional Status Independent [facility] 12-26-2022 Are you deaf, or do you have serious difficulty hearing No 12/26/2022 2:43 PM Blaire Benton, VERNON No [facility] 12-26-2022 Are you blind, or do you have serious difficulty seeing, even when wearing glasses No 12/26/2022 2:43 PM Blaire Benton, VERNON No [facility] 12-26-2022 Do you have serious difficulty walking or climbing stairs No 12/26/2022 2:43 PM Blaire Benton, VERNON No [facility] 12-26-2022 Do you have difficul ty dressing or bathing No 12/26/2022 2:43 PM Blaire Benotn, RN No [facility] 12-26-2022 Because of a physica l, mental, or emotional condition, do you have difficulty doing errands alone such as visiting a physician's office or shopping No 12/26/2022 2:43 PM Blaire Benton, RN No [facility] 12-10-2022 Functional Status Assistive Device None A [facility] 12-10-2022 Functional Status Standard Safet y ID band on, Allergy Band on, Call device within reach, Bed in low position, Wheels locked, Upper/Half-Length side-rails up, Safety level maintained [facility] 11-22-2022 Functional Status Assistive Device None A [facility] 07-18-2022 Functional status Activity Abili ty With Assist of 1 [facility] Work Phone: 07-18-2022 Functional status Patient Activity Ambula velvet [facility] Work Phone: 07-04-2022 Functional Status Independent [facility] 07-03-2022 Functional Status Standard Safet y ID band on, Allergy Band on, Call device within reach, Bed in low position, Wheels locked, Upper/Half-Length side-rails up, Phone within reach, personal items within reach, Bedside Cart Locked, Visitor at bedside [facility] 06-05-2022 Functional Status Standard Safet y Safety level maintained [facility] 06-05-2022 Functional Status bilateral knee high [facility] 06-05-2022 Functional Status Room check performed [facility] 06-05-[address] [facility] 06-05-[address] [facility] 06-05-2022 Functional Status Steady without support [facility] 04-27-2022 Functional Status Room check performed [facility] 04-27-2022 Functional Status [address] [facility] 04-27-[address] [facility] 04-26-2022 Functional Status Demonstrates C orrect Call Light Use Yes [facility] 04-25-2022 Functional Status Home managemen t, Housework, Laundry, Meal preparation, Personal ADL [facility] 04-25-[address] [facility] 04-24-2022 Functional Status Dinner Percent 0 [facility] 04-24-[address] [facility] 04-24-2022 Functional Status Setup [facility] 04-24-2022 Functional Status Sensory Deficits None [facility] 04-24-2022 Functional Status Assistive Tara ce Wheelchair [facility] 03-22-2022 Functional Status Independent Sarwat Shane [facility] 02-15-2022 Functional Status Independent [facility] 11-22-2021 Functional status Ambulates [facility] Work Phone: Mental Status Date Assessment Result Facility 04-06-2025 Mental Status Orientation Oriented x 4 [facility] 04-06-[address] [facility] 08-16-2024 Cognitive function Voice/Name [facility] Work Phone: 08-15-2024 Cognitive function Cooperative [facility] Work Phone: 07-11-2024 Cognitive function Voice/Name [facility] Work Phone: 06-02-2024 Mental Status Orientation Oriented x 4 [facility] 06-02-[address] [facility] 04-07-2024 Mental Status Orientation Oriented x 4 [facility] 04-06-[address] [facility] 02-25-2024 Mental Status Oriented x [address] [facility] 02-02-2024 Mental Status Orientation Oriented x 4 [facility] 11-22-2023 Mental Status Orientation Oriented x 4 [facility] 11-21-2023 Mental Status [facility] 11-21-2023 Mental Status [facility] 11-19-2023 Mental Status Orientation Asse ssment Oriented x 4 [facility] 11-19-2023 Mental Status [facility] 11-19-2023 Mental Status [facility] 11-17-2023 Mental Status Orientation Oriented x 4 [facility] 11-02-2023 Mental Status Orientation Oriented x 4 [facility] 11-02-[address] [facility] 11-02-[address] [facility] 11-01-[address] [facility] 09-25-2023 Mental Status Orientation Oriented x 4 [facility] 09-24-[address] [facility] 07-20-2023 Mental Status Orientation Oriented x 4 [facility] 07-19-[address] [facility] 07-15-2023 Mental Status Orientation Oriented x 4 [facility] 07-15-[address] [facility] 06-07-2023 Mental Status Orientation Oriented x 4 [facility] 06-07-[address] [facility] 02-25-2023 Mental Status Orientation Orie nted x 4, Follows simple commands [facility] 02-24-[address] [facility] 02-24-[address] [facility] 02-23-[address] [facility] 02-23-[address] [facility] 02-02-2023 Cognitive function Level Of Cons ciousness Awake;Alert;Appropriate;Fol lows Commands [facility] Work Phone: 01-04-2023 Cognitive function Awake;Alert;A ppropriate;Fol lows Commands [facility] Work Phone: 12-26-2022 Because of a physica l, mental, or emotional condition, do you have serious difficulty concentrating, remembering, or making decisions No 12/26/2022 2:43 PM Blaire Benton RN No [facility] 12-10-2022 Mental Status Orientation Oriented x 4 [facility] 12-10-[address] [facility] 11-22-2022 Mental Status Orientation Oriented x 4 [facility] 07-18-2022 Cognitive function Voice/Name [facility] Work Phone: 07-13-2022 Cognitive function Level Of Cons ciousness Awake;Alert;Appropriate;Fol lows Commands [facility] Work Phone: 07-04-2022 Mental Status Orientation Oriented x 4 [facility] 07-03-[address] [facility] 06-05-2022 Mental Status Oriented x [address] [facility] 06-05-[address] [facility] 06-04-[address] [facility] 04-27-2022 Mental Status Oriented x [address] [facility] 04-27-[address] [facility] 04-26-[address] [facility] 03-22-2022 Mental Status Orientation Oriented x 4 [facility] 03-22-2022 Cognitive function Level Of Cons ciousness Awake;Alert;Appropriate;Fol lows Commands [facility] Work Phone: 02-15-2022 Mental Status Orientation Oriented x 4 [facility] 11-21-2021 Cognitive function Appropriate;Cooperativ e [facility] Work Phone: 11-20-2021 Cognitive function Level Of Cons ciousness Awake;Follows Commands [facility] Work Phone: 11-15-2021 Cognitive function Level Of Cons ciousness Awake;Alert;Appropriate;Fol lows Commands [facility] Work Phone: Clinical Notes 10-18-2016 to 04-10-2025 Note Date & Type Note Facility 04-10-2025 Note . MICRO - Microbiology PROCEDURE: Culture Wound Aerobic with Gram Stain [*1] SOURCE: Wound (surface) BODY SITE: Ankle COLLECTED DATE/TIME: 04/06/2025 16:30 EST RECEIVED DATE/TIME: 04/07/2025 17:26 EST START DATE/TIME: 04/07/2025 17:28 EST FREE TEXT SOURCE: FINAL REPORTS Final Report [] Verified Date/Time/Personnel: 04/10/2025 08:43 EST Light Staphylococcus aureus PRELIMINARY REPORTS Preliminary Report [] Verified Date/Time/Personnel: 04/09/2025 07:46 EST Light Staphylococcus aureus KURT to follow Preliminary Report [] Verified Date/Time/Personnel: 04/08/2025 10:47 EST Culture results pending. STAINS GS [] Verified Date/Time/Personnel: 04/07/2025 22:26 EST Rare Epithelial cells 1+ Gram Positive Cocci SUSCEPTIBILITY RESULTS Staphylococcus aureus Antibiotic KURT Dilut KURT Inter Ampicillin/ <=8/4 Susceptible Sulbactam Azithromycin <=2 Susceptible Cefazolin <=8 Susceptible Ceftriaxone <=4 Susceptible Ciprofloxacin <=1 Susceptible Clindamycin <=0.25 Susceptible Erythromycin <=0.25 Susceptible Levofloxacin <=1 Susceptible Oxacillin <=0.25 Susceptible Penicillin <=0.03 Susceptible Tetracycline <=4 Susceptible Trimethoprim/ <=0.5/9.5 Susceptible Sulfa Vancomycin 1 Susceptible Performing Locations *1: This test was performed at: [address], [facility] , [facility] 04-09-2025 Note . MICRO - Microbiology PROCEDURE: Urine Culture [*1] SOURCE: Urine, Cook Catheter BODY SITE: COLLECTED DATE/TIME: 04/06/2025 16:30 EST RECEIVED DATE/TIME: 04/07/2025 17:26 EST START DATE/TIME: 04/07/2025 17:27 EST FREE TEXT SOURCE: FINAL REPORTS Final Report [] Verified Date/Time/Personnel: 04/09/2025 07:56 EST >100,000 cfu/ml Multiple bacterial morphotypes present. Probable Contamination. Suggest recollection if clinically indicated. PRELIMINARY REPORTS Preliminary Report [] Verified Date/Time/Personnel: 04/08/2025 14:31 EST Culture results pending. Preliminary Report [] Verified Date/Time/Personnel: 04/07/2025 17:59 EST Specimen received in lab. Performing Locations *1: This test was performed at: [address], [facility]- , [facility] 04-07-2025 Note . MICRO - Microbiology PROCEDURE: Blood Culture (bacterial) [*1] SOURCE: Blood BODY SITE: COLLECTED DATE/TIME: 04/06/2025 16:30 EST RECEIVED DATE/TIME: 04/07/2025 15:12 EST START DATE/TIME: 04/07/2025 15:12 EST FREE TEXT SOURCE: PRELIMINARY REPORTS Preliminary Report [] Verified Date/Time/Personnel: 04/07/2025 16:00 EST Culture has been received in lab and is no growth to date. Routine cultures are held for 5 days. Performing Locations *1: This test was performed at: [address], [address] [place] [address] 04-07-2025 Note . MICRO - Microbiology PROCEDURE: Blood Culture (bacterial) [*1] SOURCE: Blood BODY SITE: COLLECTED DATE/TIME: 04/06/2025 16:30 EST RECEIVED DATE/TIME: 04/07/2025 15:12 EST START DATE/TIME: 04/07/2025 15:12 EST FREE TEXT SOURCE: PRELIMINARY REPORTS Preliminary Report [] Verified Date/Time/Personnel: 04/07/2025 16:00 EST Culture has been received in lab and is no growth to date. Routine cultures are held for 5 days. Performing Locations *1: This test was performed at: [address], [facility] , [facility] 04-06-2025 Hospital Discharg e instructions Patient Education 04/06/2025 18:25:57 Vomiting (Adult) Vomiting (Adult) Vomiting is a common symptom that may be due to different causes. These include gastroenteritis (stomach flu), food poisoning and gastritis. There are other more serious causes of vomiting which may be hard to diagnose early in the illness. Therefore, it is important to watch for the warning signs listed below. The main danger from repeated vomiting is dehydration. This is due to excess loss of water and minerals from the body. When this occurs, your body fluids must be replaced. Home care If symptoms are severe, rest at home for the next 24 hours. Because your symptoms may be from an infection, wash your hands often and well. If soap and water are not available, use alcohol-based carpenter and joiner to keep from spreading the infection to others. Wash your hands for at least 20 seconds. Humming the happy birthday song twice while you wash is an easy way to make sure you've washed for 20 seconds. Wash your hands after using the toilet, before and after preparing food, before eating food, after changing a diaper, cleaning a wound, caring for a sick person, and blowing your nose, coughing, or sneezing. You should also wash your hands after caring for someone who is sick, touching pet food, or treats, and touching an animal, or animal waste. You may use acetaminophen or NSAID medicines like ibuprofen or naproxen to control fever, unless another medicine was prescribed. If you have chronic liver or kidney disease or ever had a stomach ulcer or gastrointestinal bleeding, talk with your doctor before using these medicines. Aspirin should never be used in anyone under 18 years of age who is ill with a fever. It may cause severe liver damage. Don't use NSAID medicines if you are already taking one for another condition (like arthritis) or are on aspirin (such as for heart disease, or after a stroke) Don't use tobacco and or drink alcohol, which may worsen your symptoms. If medicines for vomiting were prescribed, take as directed. Once vomiting stops, then follow these guidelines: During the first 12 to 24 hours follow the diet below: Fruit juices. Apple, grape juice, clear fruit drinks, and electrolyte replacement drinks. Beverages. Soft drinks without caffeine; mineral water (plain or flavored), decaffeinated tea and coffee. Soups. Clear broth and bouillon Desserts. Plain gelatin, ice pops, and fruit juice bars. As you feel better, you may add 6 to 8 ounces of yogurt per day. During the next 24 hours you may add the following to the above: Hot cereal, plain toast, bread, rolls, crackers Plain noodles, rice, mashed potatoes, chicken noodle or rice soup Unsweetened canned fruit such as applesauce, bananas (avoid pineapple and citrus) Limit caffeine and chocolate. No spices or seasonings except salt. During the next 24 hours: Gradually resume a normal diet, as you feel better and your symptoms lessen. Follow-up care Follow up with your healthcare provider, or as advised. When to seek medical advice Call your healthcare provider right away if any of these occur: Constant right-sided lower belly pain or increasing general belly pain Continued vomiting (unable to keep liquids down) for 24 hours Vomiting blood or coffee grounds Swollen belly Frequent diarrhea (more than 5 times a day); blood (red or black color) or mucus in diarrhea Reduced urine output or extreme thirst Weakness, dizziness or fainting Unusually drowsy or confused Fever of 100.4 F (38 C) oral or higher, or as directed Yellow color of the eyes or skin [id number] [employer] [address] [place] [address]. All rights reserved. This information is not intended as a substitute for professional medical care. Always follow your healthcare professional's instructions. 04/06/2025 18:25:48 Dizziness, Uncertain Cause Dizziness (Uncertain Cause) Dizziness is a common symptom. It may be described as lightheadedness, spinning, or feeling like you are going to faint. Dizziness can have many causes. Be sure to tell the healthcare provider about: All medicines you take, including prescription, [id number], herbs, and supplements Any other symptoms you have Any health problems you are being treated for Any past major health problems you've had, such as a heart attack, balance issues, hearing problems, or blood pressure problems Anything that causes the dizziness to get worse or better Today's exam did not show an exact cause for your dizziness. Other tests may be needed. Follow up with your healthcare provider. Home care Dizziness that occurs with sudden standing may be a sign of mild dehydration. Drink extra fluids for the next few days. If you recently started a new medicine, stopped a medicine, or had the dose of a current medicine changed, talk with the prescribing healthcare provider. Your medicine plan may need adjustment. If dizziness lasts more than a few seconds, sit or lie down until it passes. This may help prevent injury in case you pass out. Get up slowly when you feel better. Don't drive or use power tools or dangerous equipment until you have had no dizziness for at least 48 hours. Follow-up care Follow up with your healthcare provider for further evaluation within the next 7 days or as advised. When to seek medical advice Call your healthcare provider for any of the following: Worsening of symptoms or new symptoms Passing out or seizure Repeated vomiting Headache Palpitations (the sense that your heart is fluttering or beating fast or hard) Shortness of breath Blood in vomit or stool (black or red color) Weakness of an arm or leg or 1 side of the face Vision or hearing changes Trouble walking or speaking Chest, arm, neck, back, or jaw pain [id number] [employer] [address] [place] [address]. All rights reserved. This information is not intended as a substitute for professional medical care. Always follow your healthcare professional's instructions. 04/06/2025 18:25:39 Wound Care Wound Care Taking proper care of your wound will help it heal. Your healthcare provider may show you how to clean and dress the wound. He or she will also explain how to tell if the wound is healing normally. If you are unsure of how to take care of the wound, be sure to clarify what dressing to use and how often you should change the bandages. Here are the basic steps. A wound that's not healing normally may be dark in color or have white streaks. Wash your hands Tips for washing your hands include: Use liquid soap and lather for 2 minutes. Scrub between your fingers and under your nails. Rinse with warm water, keeping your fingers pointing down. Use a paper towel to dry your hands and to turn off the faucet. Remove the used dressing Here are suggestions for removing the dressing: If dressing changes cause you pain, be sure to take your pain medicine as prescribed by your healthcare provider 30 minutes before dressing changes. Set up your supplies. Put on disposable gloves if you re dressing a wound for someone else or your wound is infected. Loosen the tape by pulling gently toward the wound. Gently take off the old dressing. If the dressing is stuck to the wound, moisten it with saline (if available) or clean water. If you have a drain or tube in the wound, be careful not to pull on it. Remove the dressing 1 layer at a time and put it in a plastic bag. Seal the bag and put it in the trash. Remove your gloves. Inspect and dress the wound Check the wound carefully: Each time you change the dressing, check the wound carefully to be sure it s healing normally by making sure your wound appears to be pink and moist, and is free of infection. Wash your hands again. Put on a new pair of gloves. Clean and dress the wound as directed by your healthcare provider or nurse. Don't put anything in the wound that is not prescribed or directed by your healthcare provider. If you have a drain or tube, be careful not to pull on it. Make sure to secure the drain or tube as well. Put all unused supplies in a clean plastic bag. Seal the bag and store it in a clean, dry area between dressing changes. Be sure to wash your hands again. Call your healthcare provider Call your healthcare provider if you see any of the following signs of a problem: Bleeding that soaks the dressing [place] fluid weeping from the wound Increased drainage or drainage that is yellow, yellow-green, or foul-smelling Increased swelling or pain, or redness or swelling in the skin around the wound A change in the color of the wound, or if streaks develop in a direction away from the wound The area between any stitches opens up An increase in the size of the wound A fever of 100.4 F (38 C) or higher, or as directed by your healthcare provider Chills, increased fatigue, or a loss of appetite [phone] [employer] [address] [place] [address]. All rights reserved. This information is not intended as a substitute for professional medical care. Always follow your healthcare professional's instructions. Follow Up Care 04/06/2025 15:34:11 With:[facility] Address: [address] [place] [address]- [phone] Business (1) When:1-2 days With:WILL BRANNON MD Address: [address] [place] [address]- When:1-2 days Comments:Return to ED if symptoms worsen [facility] 04-06-2025 Emergency department Discharge summary Discharge Instructions Thank you for allowing [facility] to assist you with your healthcare needs. The following is important discharge information regarding your hospital visit. Diagnosis from Today's Visit Diabetes Nausea Wound of left foot What to Do Next Instructions from Your Care Team Take your medications exactly as prescribed. Make sure you take all doses of the prescribed antibiotic without missing any. Follow-up with your sales porter tomorrow. Follow-up with your primary care physician as well. If your symptoms were to acutely worsen or change, please return back to the emergency department for further assessment and care. No qualifying data available. Post Acute Orders No qualifying data available. You Need to Schedule the Following Appointments Follow Up with [facility] GON[facility] When:Within 1-2 days Where:[address] [place] [address] [phone] Business (1) Follow Up with WILL BRANNON MD When:Within 1-2 days Where:[address] [place] [address]- Additional Information: Return to ED if symptoms worsen Allergies Mushrooms(Severe) Throat swelling Peanuts(Severe) Throat swelling Rocephin(Severe) Hives cephalosporins(Severe) Anaphylaxis, Hives gabapentin (Moderate) psychotic breakdown Latex (Mild) Hives contrast media (gadolinium-based) penicillin Unknown vancomycin Medications Please ask your primary doctor or pharmacist before taking any other medication not listed, including over the counter drugs, herbal medications, vitamins and or supplements as they may interact with your home medications. What How Much When Instructions Last Dose New ondansetron (ondansetron 4 mg oral tablet, disintegrating) 1 tab(s) by mouth Every 6 hours as needed for Nausea/Vomiting Duration: 3 Days Printed Prescription Unchanged apixaban [...] Medication Leaflets ondansetron (oral) (on LAUREEN hein) What is the most important information I should know about ondansetron? Tell your doctor about all your other medicines. Some drugs should not be used with ondansetron. What is ondansetron? Ondansetron is used to prevent nausea and vomiting that may happen with certain cancer medicines (chemotherapy), or after surgery, or radiation treatment . Ondansetron may be used for purposes not listed in this medication guide. What should I discuss with my health care provider before taking ondansetron? You should not use ondansetron if you are allergic to it or similar medicines (dolasetron, granisetron, palonosetron). Some drugs should not be used with ondansetron. Your treatment plan may change if you also use apomorphine. Tell your doctor if you have or have ever had: an electrolyte imbalance (such as low blood levels of potassium or magnesium); congestive heart failure, slow heartbeats; heart rhythm disorder such as long QT syndrome (in you or a family member); an obstruction in the stomach or intestines, a change in bowel habits; a surgery on your stomach or intestines; or severe liver disease. The orally disintegrating tablet may contain phenylalanine and could be harmful if you have phenylketonuria (PKU). Tell your doctor if you also use stimulant medicine, opioid medicine, herbal products, or medicine for depression, mental illness, Parkinson's disease, migraine headaches, serious infections, or prevention of nausea and vomiting. An interaction with ondansetron could cause a serious condition called serotonin syndrome. Tell your doctor if you are or . Ondansetron is not approved for use by anyone younger than 4 years old. How should I take ondansetron? Follow all directions on your prescription label and read all medication guides or instruction sheets. Use the medicine exactly as directed. Ondansetron is usually taken just before surgery, chemotherapy, or radiation treatment. Follow your doctor's dosing instructions very carefully. Measure liquid medicine with the supplied measuring device (not a kitchen spoon). To take the orally disintegrating tablet: Keep the tablet in its blister pack until you are ready to take it. Open the package and peel back the foil. Use dry hands to remove the orally disintegrating tablet and place it in your mouth. Do not push a tablet through the foil or you may damage the tablet. Allow the orally disintegrating tablet to dissolve in your mouth without chewing. Do not swallow whole. Store in the original container at room temperature away from moisture, heat, and light. Store liquid medicine in an upright position. What happens if I miss a dose? Ondansetron is used when needed. If you are on a dosing schedule, skip any missed dose. Do not use two doses at one time. What happens if I overdose? Seek emergency medical attention or call the Poison Help line at . What should I avoid while taking ondansetron? Follow your doctor's instructions about any restrictions on food, beverages, or activity. What are the possible side effects of ondansetron? Get emergency medical help if you have signs of an allergic reaction: hives, difficult breathing, swelling of your face, lips, tongue, or throat. Seek medical attention right away if you have symptoms of serotonin syndrome such as: agitation, hallucinations, fever, sweating, shivering, fast heart rate, muscle stiffness, twitching, loss of coordination, nausea, vomiting, or diarrhea. Seek emergency medical help if you have signs of a heart attack: chest pain that spreads to your jaw or shoulder, nausea, and sweating. Call your doctor at once if you have: severe stomach pain, bloating, constipation, or any change in bowel habits; or dizziness, feeling lightheaded, fainting, slow, fast, or uneven heartbeats. Common side effects may include: diarrhea or constipation; headache; shortness of breath, rapid breathing, fast heartbeats; or feeling unwell, tiredness. This is not a complete list of side effects and others may occur. Call your doctor for medical advice about side effects. You may report side effects to FDA at 6-638-CNJ-7908. What other drugs will affect ondansetron? Ondansetron can cause a serious heart problem. Your risk may be higher if you also use certain other medicines for infections, asthma, heart problems, high blood pressure, depression, mental illness, cancer, malaria, or HIV. Many drugs can affect ondansetron. This includes prescription and rucb-wov-wafyixr medicines, vitamins, and herbal products. Not all possible interactions are listed here. Tell your doctor about all other medicines you use. Where can I get more information? Your doctor or pharmacist can provide more information about ondansetron. Remember, keep this and all other medicines out of the reach of children, never share your medicines with others, and use this medication only for the indication prescribed. Every effort has been made to ensure that the information provided by [employer]. ('[employer]') is accurate, up-to-date, and complete, but no guarantee is made to that effect. Drug information contained herein may be time sensitive. [employer] information has been compiled for use by healthcare practitioners and consumers in the [place] and therefore [employer] does not warrant that uses outside of the [place] are appropriate, unless specifically indicated otherwise. [employer] drug information does not endorse drugs, diagnose patients or recommend therapy. [employer] drug information is an informational resource designed to assist licensed healthcare practitioners in caring for their patients and/or to serve consumers viewing this service as a supplement to, and not a substitute for, the expertise, skill, knowledge and judgment of healthcare practitioners. The absence of a warning for a given drug or drug combination in no way should be construed to indicate that the drug or drug combination is safe, effective or appropriate for any given patient. [employer] does not assume any responsibility for any aspect of healthcare administered with the aid of information [employer] provides. The information contained herein is not intended to cover all possible uses, directions, precautions, warnings, drug interactions, allergic reactions, or adverse effects. If you have questions about the drugs you are taking, check with your doctor, nurse or pharmacist. Copyright [employer]. Version: 17.. Revision Date: 02/20/2024. Education Materials Vomiting (Adult) Vomiting is a common symptom that may be due to different causes. These include gastroenteritis (stomach flu), food poisoning and gastritis. There are other more serious causes of vomiting which may be hard to diagnose early in the illness. Therefore, it is important to watch for the warning signs listed below. The main danger from repeated vomiting is dehydration. This is due to excess loss of water and minerals from the body. When this occurs, your body fluids must be replaced. Home care If symptoms are severe, rest at home for the next 24 hours. Because your symptoms may be from an infection, wash your hands often and well. If soap and water are not available, use alcohol-based carpenter and joiner to keep from spreading the infection to others. Wash your hands for at least 20 seconds. Humming the happy birthday song twice while you wash is an easy way to make sure you've washed for 20 seconds. Wash your hands after using the toilet, before and after preparing food, before eating food, after changing a diaper, cleaning a wound, caring for a sick person, and blowing your nose, coughing, or sneezing. You should also wash your hands after caring for someone who is sick, touching pet food, or treats, and touching an animal, or animal waste. You may use acetaminophen or NSAID medicines like ibuprofen or naproxen to control fever, unless another medicine was prescribed. If you have chronic liver or kidney disease or ever had a stomach ulcer or gastrointestinal bleeding, talk with your doctor before using these medicines. Aspirin should never be used in anyone under 18 years of age who is ill with a fever. It may cause severe liver damage. Don't use NSAID medicines if you are already taking one for another condition (like arthritis) or are on aspirin (such as for heart disease, or after a stroke) Don't use tobacco and or drink alcohol, which may worsen your symptoms. If medicines for vomiting were prescribed, take as directed. Once vomiting stops, then follow these guidelines: During the first 12 to 24 hours follow the diet below: Fruit juices. Apple, grape juice, clear fruit drinks, and electrolyte replacement drinks. Beverages. Soft drinks without caffeine; mineral water (plain or flavored), decaffeinated tea and coffee. Soups. Clear broth and bouillon Desserts. Plain gelatin, ice pops, and fruit juice bars. As you feel better, you may add 6 to 8 ounces of yogurt per day. During the next 24 hours you may add the following to the above: Hot cereal, plain toast, bread, rolls, crackers Plain noodles, rice, mashed potatoes, chicken noodle or rice soup Unsweetened canned fruit such as applesauce, bananas (avoid pineapple and citrus) Limit caffeine and chocolate. No spices or seasonings except salt. During the next 24 hours: Gradually resume a normal diet, as you feel better and your symptoms lessen. Follow-up care Follow up with your healthcare provider, or as advised. When to seek medical advice Call your healthcare provider right away if any of these occur: Constant right-sided lower belly pain or increasing general belly pain Continued vomiting (unable to keep liquids down) for 24 hours Vomiting blood or coffee grounds Swollen belly Frequent diarrhea (more than 5 times a day); blood (red or black color) or mucus in diarrhea Reduced urine output or extreme thirst Weakness, dizziness or fainting Unusually drowsy or confused Fever of 100.4 F (38 C) oral or higher, or as directed Yellow color of the eyes or skin 2097-4081 [employer]. [address] [place] [address]. All rights reserved. This information is not intended as a substitute for professional medical care. Always follow your healthcare professional's instructions. Dizziness (Uncertain Cause) Dizziness is a common symptom. It may be described as lightheadedness, spinning, or feeling like you are going to faint. Dizziness can have many causes. Be sure to tell the healthcare provider about: All medicines you take, including prescription, micf-mqc-vkrcoey, herbs, and supplements Any other symptoms you have Any health problems you are being treated for Any past major health problems you've had, such as a heart attack, balance issues, hearing problems, or blood pressure problems Anything that causes the dizziness to get worse or better Today's exam did not show an exact cause for your dizziness. Other tests may be needed. Follow up with your healthcare provider. Home care Dizziness that occurs with sudden standing may be a sign of mild dehydration. Drink extra fluids for the next few days. If you recently started a new medicine, stopped a medicine, or had the dose of a current medicine changed, talk with the prescribing healthcare provider. Your medicine plan may need adjustment. If dizziness lasts more than a few seconds, sit or lie down until it passes. This may help prevent injury in case you pass out. Get up slowly when you feel better. Don't drive or use power tools or dangerous equipment until you have had no dizziness for at least 48 hours. Follow-up care Follow up with your healthcare provider for further evaluation within the next 7 days or as advised. When to seek medical advice Call your healthcare provider for any of the following: Worsening of symptoms or new symptoms Passing out or seizure Repeated vomiting Headache Palpitations (the sense that your heart is fluttering or beating fast or hard) Shortness of breath Blood in vomit or stool (black or red color) Weakness of an arm or leg or 1 side of the face Vision or hearing changes Trouble walking or speaking Chest, arm, neck, back, or jaw pain 9445-4519 [employer] [address] [place] [address], [place] [address]. All rights reserved. This information is not intended as a substitute for professional medical care. Always follow your healthcare professional's instructions. Wound Care Taking proper care of your wound will help it heal. Your healthcare provider may show you how to clean and dress the wound. He or she will also explain how to tell if the wound is healing normally. If you are unsure of how to take care of the wound, be sure to clarify what dressing to use and how often you should change the bandages. Here are the basic steps. A wound that's not healing normally may be dark in color or have white streaks. Wash your hands Tips for washing your hands include: Use liquid soap and lather for 2 minutes. Scrub between your fingers and under your nails. Rinse with warm water, keeping your fingers pointing down. Use a paper towel to dry your hands and to turn off the faucet. Remove the used dressing Here are suggestions for removing the dressing: If dressing changes cause you pain, be sure to take your pain medicine as prescribed by your healthcare provider 30 minutes before dressing changes. Set up your supplies. Put on disposable gloves if you re dressing a wound for someone else or your wound is infected. Loosen the tape by pulling gently toward the wound. Gently take off the old dressing. If the dressing is stuck to the wound, moisten it with saline (if available) or clean water. If you have a drain or tube in the wound, be careful not to pull on it. Remove the dressing 1 layer at a time and put it in a plastic bag. Seal the bag and put it in the trash. Remove your gloves. Inspect and dress the wound Check the wound carefully: Each time you change the dressing, check the wound carefully to be sure it s healing normally by making sure your wound appears to be pink and moist, and is free of infection. Wash your hands again. Put on a new pair of gloves. Clean and dress the wound as directed by your healthcare provider or nurse. Don't put anything in the wound that is not prescribed or directed by your healthcare provider. If you have a drain or tube, be careful not to pull on it. Make sure to secure the drain or tube as well. Put all unused supplies in a clean plastic bag. Seal the bag and store it in a clean, dry area between dressing changes. Be sure to wash your hands again. Call your healthcare provider Call your healthcare provider if you see any of the following signs of a problem: Bleeding that soaks the dressing [place] fluid weeping from the wound Increased drainage or drainage that is yellow, yellow-green, or foul-smelling Increased swelling or pain, or redness or swelling in the skin around the wound A change in the color of the wound, or if streaks develop in a direction away from the wound The area between any stitches opens up An increase in the size of the wound A fever of 100.4 F (38 C) or higher, or as directed by your healthcare provider Chills, increased fatigue, or a loss of appetite [phone] [employer] [address] [place] [address]. All rights reserved. This information is not intended as a substitute for professional medical care. Always follow your healthcare professional's instructions. Additional Information VACCINATE! IT SAVES LIVES! Members of the community who have not yet received the COVID-19 vaccine and would like to receive it can visit one of [facility] vaccine clinics. There are many vaccine clinic locations within the [facility]. For locations and available times, please visit www.gettheshot.coronavirus.[place]. gov/. It is important to note that some COVID mobile vaccine clinics are held outdoors and may be canceled in rainy or stormy conditions. To learn more about pediatric vaccinations (ages 5-11), we invite you to visit the [facility] webpage. https://www.[facility].org/p ages/0882-Bifjl-Umnsbnfgoza-Freq dwmnsc-Uouit-Enmleasbg.html To learn more about the COVID-19 vaccine, we invite you to visit the CDC website for a list of frequently asked questions. https://www.cdc.gov/coronavirus/ 2019-ncov/vaccines/faq.html [facility] [employer] [facility] Patient Portal Access Instructions: Stay connected with your healthcare team and access your personal medical information anytime with the [facility] Patient Portal. If you would like a full copy of your medical records please contact the [facility] Medical Records Department Monday through Monday between 8a.m. and 4:30p.m. Please follow the directions below to access the portal: 1.Access the email account you provided upon registration to the hospital.2.Look for an invitation email from [facility].3.Open the email and access the invitation link: Accept Invitation to [facility]4.Fill in the required hartley to create your account. To access your account, visit [email or web address] or scan the Clipmarks code above. Click the blue button labeled Access Patient Portal and then log in with the username and password that you created in the steps above. You can then view a summary of results, a summary of your visits, and the ability to download your summaries to your computer or send the information securely to a physician. Remember that your healthcare information is confidential, so carefully consider who you will allow to register on the [facility] Patient Portal for access to your information. You can also access the [facility] Patient Portal on the [employer] robert. Simply click on Health Records under Health Data and then click on the [employer] logo. HOW TO SAFELY DISPOSE OF PRESCRIPTION MEDICATIONS Please use one of the following methods to safely dispose of your unused medications. 1.Use a drug disposal kit: the drug disposal pouch allows you to safely discard your old and unused drugs. Ask your nurse to give you one when you are discharged.2.Visit a local take-back location: Many local pharmacies and police departments have programs that collect old and unwanted prescription drugs. Call your local pharmacy or go to http://SchoolChapters.Art [employer] Defence/2H0Dm6f to find one close to you.3.Make use of household items: Use cat litter or old coffee grounds to dispose medications if other options are not available. Mix your drugs with these household products, seal them in an airtight container and throw it into the garbage. Call [facility]: [phone] to be sure your drugs can be [...] a CHART COPY Signatures Patient Education Materials Vomiting (Adult) Dizziness, Uncertain Cause Wound Care Medication Leaflets ondansetron (oral) My discharge plan and instructions have been reviewed and explained to me and UVALDO To ANGELA L understand my current condition and have read and understand these discharge instructions. I have received a written copy of the plan/instructions. If I have questions, I am aware that I should contact my doctor. 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 Diffuse soft tissue swelling of the lower extremity. No erosive changes of the ankle. No radiodense foreign body. IMPRESSION: No acute osseous findings by radiograph. I have personally reviewed the images of this examination and agree with the resident's findings and interpretation. Interpreted by: Stephan Davies Preliminary Report By: Julianne Levin Electronically signed By Stephan Davies Dictated Date: 04/06/2025 5:31:21 PM Prelim Date: 04/06/2025 5:36:46 PM Sign Date: 04/06/2025 5:42:34 PM Ordering Provider: SUSAN LEON RP [facility]11-09-2025 Note* Exam Date Time Procedure Performing Provider Status 04/06/25 5:02 PM XR Chest 1 View STEPHAN DAVIES MD; [facility] (Verified) [id number] ORIGINAL EXAMINATION: ONE XRAY VIEW OF THE CHEST 04/06/2025 5:02 pm COMPARISON: 11/17/2023 HISTORY: ORDERING SYSTEM PROVIDED HISTORY: Reason for Exam: dizziness FINDINGS: Cardiomediastinal silhouette is within normal limits. Diminished lung volumes with associated hypoventilatory changes. No focal consolidation, pleural effusion, or pneumothorax. No acute osseous findings. IMPRESSION: Low lung volumes. I have personally reviewed the images of this examination and agree with the resident's findings and interpretation. Interpreted by: Stephan Davies Preliminary Report By: Julianne Levin Electronically signed By Stephan Davies Dictated Date: 04/06/2025 5:29:16 PM Prelim Date: 04/06/2025 5:30:06 PM Sign Date: 04/06/2025 5:41:00 PM Ordering Provider: SUSAN LEON [facility]11-09-2025 Note* Exam Date Time Procedure Performing Provider Status 04/06/25 5:01 PM EKG [ED AO] - CV MD SUSAN LEON MD; Auth (Verified) ECG Final Report Sinus rhythm Probable left atrial enlargement Electronic Signature: MD SUSAN LEON MD 04/06/2025 17:04:47 [facility]11-09-2025 Evaluation + Plan note Diagnostic Tests Pending * Urine Culture 04/06/25 * Blood Culture (bacterial) 04/06/25 * Blood Culture (bacterial) 04/06/25 * Culture Wound Aerobic with Gram Stain 04/06/25 [facility] 10-12-2025 Discharge summary [facility] Medical Records Department [address] [place] [address] Emergency Department Summary 03/09/25 MR#: [id number] Acct: [id number] Name: DEBBY BAILON Rep #:[id number] 12 : 1980 44 From: Alexander Hooks DO PCP: Dr. Will Brannon MD Status:DEP ER Location: ED HPI History of Present Illness Chief Complaint: Cook C/O Informant: patient Narrative Narrative: Patient is a 44-year-old female with past medical history of spina bifida and chronic indwelling suprapubic catheter. She was seen earlier this evening and at that time had laboratory studies and a urine sample and a CT scan of the abdomen and pelvis. Workup revealed no clinically significant findings. She had her suprapubic catheter replaced as it was not draining. Patient states that there was no inadvertent tugging or manipulation of the suprapubic catheteronce she was discharged however shehas been having increasing pain in the lowerabdomen/pelvic region and she states there has been no drainage from her catheter. The patient states that the last time she had symptoms like this it was because the catheter was threaded too far and was no longer in the bladder. 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 resistance Leukocytosis Cellulitis of left leg Cellulitis of foot, left Type 2 diabetes mellitus with foot ulcer [...] mg PO BID Beta Pan 08/10/24 History ondansetron 4 mg disintegrating 4 mg PO Q8H PRN PRN Na usea #20 tabs 06/09/24 08/11/24 Rx tablet promethazine 25 mg tablet 25 mg PO TID PRN nausea and 07/31/24 08/01/24 Rx vomiting #20 tabs divalproex 500 mg tablet,delayed 500 mg PO QHS Migrain e Headaches 08/11/24 08/10/24 History release omeprazole 20 mg capsule,delayed 20 mg PO DAILY PPI 08/10/24 History release cholecalciferol (vitamin D3) 125 125 mcg PO DAILY #0 c aps 08/16/24 Unknown Rx mcg (5,000 unit) capsule enoxaparin 40 mg/0.4 mL 40 mg (0.4 mL) subcut BID #0 mL 08/16/24 Unknown Rx subcutaneous syringe insulin glargine-yfgn 100 unit/mL 30 unit (0.3 mL) sub cut QHS #1 mL 08/16/24 Unknown Rx (3 mL) subcutaneous pen insulin lispro 100 unit/mL 12 unit (0.12 mL) subcut TI DCM #0 08/16/24 Unknown Rx subcutaneous pen (Humalog KwikPen mL (U-100) Insulin) insulin lispro 100 unit/mL See Protocol subcut TIDCM # 0 mL 08/16/24 Unknown Rx subcutaneous pen (Humalog KwikPen (U-100) Insulin) linezolid 600 mg tablet 600 mg PO BID #0 tabs Unknown Rx metronidazole 500 mg tablet 500 mg PO TID #22 tabs Unknown Rx oxycodone 5 mg tablet 5 mg PO Q4H PRN PRN Pain Sco re 08/16/24 Unknown Rx 1-10 3 days #10 tabs pregabalin 75 mg capsule 75 mg PO BID #6 caps 5 Unknown Rx nitrofurantoin 100 mg PO Q12 #14 CAPSULES 0 11/20/24 Unknown Rx monohydrate/macrocrystals 100 mg capsule levofloxacin 500 mg tablet 500 mg PO DAILY 5 days #5 t abs 03/09/25 Unknown Rx Allergy/AdvReac Type Severity Reaction Status Date / Time Cephalosporins Allergy Severe Anaphylaxis Verified 03/09/25 02:51 piperacillin (From Zosyn) Allergy Intermediate Hives Verified 03/09/25 02:51 ceftriaxone (From Rocephin) Allergy Anaphylaxis Verified 03/09/25 02:51 mushroom Allergy Anaphylaxis Verified 03/09/25 02:51 peanut Allergy Anaphylaxis Verified 03/09/25 02:51 tazobactam (From Zosyn) Allergy NEEDS Verified 03/09/25 02:51 FOLLOW-UP fentanyl AdvReac Low blood Verified 03/09/25 02:51 pressure gabapentin AdvReac Other Verified 03/09/25 02:51 Gadolinium-MRI Contrast AdvReac Vomiting Verified 03/09/25 02:51 Medium Latex, Natural Rubber AdvReac Rash Verified 03/09/25 02:51 vancomycin AdvReac Rash Verified 03/09/25 02:51 Family History Mother CVA (cerebral vascular accident) [...] History of dilation and curettage Social History (Updated 03/08/25 @ 20:01 by Denise Busby) household members: significant other housing: house Smoking Status: Never smoker alcohol intake: current substance use type: does not use ROS ROS ED Constitutional Constitutional ED: Denies chills or fever(s) ENT ENT ED: Denies sore throat Cardiovascular Cardiovascular: Denies chest pain Respiratory/Chest Respiratory/Chest: Denies cough or dyspnea Gastrointestinal Gastrointestinal: Reports abdominal pain; Denies nausea or vomiting Genitourinary Genitourinary ED: Reports hematuria Musculoskeletal Musculoskeletal: Denies back pain Integumentary Denies rash Neurologic Neurologic: Denies headache(s) EXAM Physical Exam Const Vital Signs: 03/09/25 02:51 03/09/25 04:16 Temperature 97.9 F 98.2 F Temperature Source Oral Pulse Rate 84 76 Respiratory Rate 18 18 Blood Pressure 130/76 H 144/77 H Blood Pressure Mean 94 99 Pulse Ox 98 99 Oxygen Delivery Method Room Air Positive well nourished, well developed and obese General Appearance ED: well developed; Negative for pallor Nutritional Appearance: obese HEENT HEENT Narrative: Normocephalic atraumatic Eyes PERRL and EOMs intact bilaterally General Eye ED: Negative for scleral icterus Neck supple Resp normal respiratory effort and clear to auscultation bilaterally Cardio regular rate and regular rhythm GI non-distended and no masses GI Narrative: Abdomen is soft and nondistended with normal active bowel sounds. There is a colostomy in place draining soft brown stool. Patient reports pain with palpation in the lower midline abdomen/suprapubic region but there is no organomegaly to suggest urinary bladder distention. There is a suprapubic cath eter in place however there is no drainage into the catheter and at the insertion site there is no surrounding redness warmth or discharge to suggest infection but it does appear to be leakage of urine around the insertion site. Auscultation: normoactive bowel sounds Palpation: soft Extremity normal to inspection Neuro oriented x3 and CN's II-XII intact bilaterally Sensorium / Orientation: alert Psych mental status grossly normal Skin General Skin Exam: Negative for jaundice or pallor MDM MDM MDM Narrative Medical decision making narrative: Patient arrived to the ER with stable vitals. She reported increasing pain in the lower abdomen/pelvic region and no drainage from the suprapubic catheter. Her previous ER visit from a few hours ago was reviewed. She had stable H&H normal kidney function and CT scan documented the catheter to be in the proper position within the bladder. The patient however inform me that the CT scan wasdone with her prior catheter in place not the new/replaced one. As there is concern that there may be sediment blocking the catheter we did attempt to manually irrigate the catheter. Upon doing this the irrigation fluid came out through the vagina indicating that the catheter was most likely thread too far. Therefore a KUB of Gastrografin was performed and this showed no sign of extravasation going against bladder rupture but I did confirm that the tip of the suprapubic catheter was not in the bladder but in the urethra which would also explain the patient's lower abdominal/pelvic pain. Therefore the balloon was deflated and the catheter was retracted approximately 4 cm. At this time there was return of clear yellow urine through the catheter tubing and the patient reported improvement of her discomfort. We flushed the catheter once again and it flushed and kandace easily without any extravasation through the vagina indicating the catheter is in the proper position. Therefore with returnof thesuprapubic catheter to a normal position functioning within the bladder she is otherwise safe for discharge History & Record Review Discussion w/independent historian: Patient Additional record(s) reviewed:: Prior ED visit Radiography Diagnostic Testing: Clinical Impression(s) from Imaging Studies KUB X-Ray 03/09/25 03:58 IMPRESSION: Suprapubic catheter is noted with its tip at the level of the urethra. It needs to be retrieved 4 cm. Contrast was injected through the catheter outlining of the bladder and the urethra without contrast leakage. [facility] as interpreted by the emergency medicine physician reveals no extravasation going against bladder perforation/rupture but it does document the tip of the suprapubic catheter is within the urethra Discharge Plan Triage Chief Complaint: Cook C/O ED Provider: Alexander Hooks Dx/Rx/DC Orders Clinical Impression: Suprapubic catheter dysfunction, Diabetes mellitus type 2, insulin dependent, Spina bifida Instructions: Suprapubic Catheter Dc Prescriptions: No Action atorvastatin 80 mg tablet [...] mg capsule,delayed release(DR/EC) 20 mg PO DAILY cholecalciferol (vitamin D3) 125 mcg (5,000 unit) [...] 75 mg PO BID Qty: 6 0RF levofloxacin 500 mg tablet 500 mg PO DAILY 5 Days Qty: 5 0RF propranolol 20 mg tablet 20 mg PO BID loratadine [Allergy Relief (loratadine)] 10 mg tablet 10 mg PO DAILY nitrofurantoin monohyd/m-cryst 100 mg capsule 100 mg PO Q12 Qty: 14 0RF Primary Care Provider: Wlil Brannon Referrals: Will Brannon MD [Primary Care Provider, Family Practice] Activity Restrictions/Additional Instructions: The x-ray of your abdomen showed that your suprapubic catheter had previously been thread too far and was in the urethra which was why it was causing pain andnot draining the bladder. There are no findings of bladder perforation/rupture. At this time the catheter was retracted and is now sitting within the bladder indicating by the fact you have draining urine. Please follow-up with your urologist and/or family doctor for repeat evaluation and return to the ER shouldyou have any further concerns Print Language: Kinyarwanda Disposition Disposition: Home, Self Care Discharge Date/Time: 03/09/25 04:21 What to do if you have Problems For any increased pain, shortness of breath, bleeding, nausea or vomiting, chestpain, or any unexpected problems, contact your Primary Care Provider. Call [facility] ([phone]) or report tothe closest Emergency Room. Call 911 if necessary. 03/09/25526 Cosigner Signature (if applicable): CC: Dr. Will Brannon MD ~ Signed [facility]10-12-2025 Radiology Diagnostic study note [facility] Imaging Services [address], [place] [address] Abdomen Single View (Portable) MR#: [id number] Acct: [id number] Name: DEBBY BAILON Rep #: [id number] : 1980 F 44 From: Cass Guevara MD PCP: Dr. Will Brannon MD Status: DEP ER Study:Abdomen Single View (Portable) Date of Exam: 03/09/25 Exam# [id number] Ordering Dr: Divya Hooks DO PROCEDURE: ABDOMEN SINGLE VIEW (PORTABLE) 03/09/2025 REASON FOR EXAM: ABDOMINAL PAIN/CONFIRM SUPRAPUBIC CATHETER PLACE TECHNIQUE: Procedure Code: RADABD_P Modality: DX Procedure: ABDOMEN SINGLE VIEW (PORTABLE) COMPARISON: CT scan on 03/08/2025. FINDINGS: Suprapubic catheter is noted with its tip at the level of the urethra. It needs to be retrieved 4 cm. There is an unremarkable bowel gas pattern. There is no demonstrated free abdominal air. Normal visualized liver. Normal visualized spleen. Normal visualized kidneys. The soft tissue structures of the pelvis are unremarkable. Diffuse spondylosis. Surgical changes of the lower anterior abdominal wall. RAD/Abdomen Single View (Portable) IMPRESSION: Suprapubic catheter is noted with its tip at the level of the urethra. It needs to be retrieved 4 cm. Contrast was injected through the catheter outlining of the bladder and the urethra without contrast leakage. [facility] CC: Dr. Will Brannon MD; Alexander Hooks DO ~ Newspaper Illustrator: Signed [facility]10-12-2025 Discharge summary [facility] Medical Records Department [address] [place] [address] Emergency Department Summary 03/08/25 MR#: [id number] Acct: [id number] Name: DEBBY BAILON Rep #:[id number] : 1980 44 From: Andre Sue DO PCP: Dr. Will Brannon MD Status:REG ER Location: ED ADDENDUM by Dr. Andre Sue DO on 03/09/25 at 0005 Patient is EKG reviewed showed sinus rhythm with a rate of 81 bpm with a NC interval normal at 148. 03/09/25 0005 Cosigner Signature (if applicable): cc: Dr. Will Brannon MD ~* Signed HPI History of Present Illness Chief Complaint: Flank Pain Narrative Narrative: Patient is a 44-year-old female with past medical history of spina bifida with ahistory of a suprapubic catheter as well as colostomy, type 2 diabetes, chronic kidney disease, hypertension who presented to the emergency department chief complaint of back pain and concern for a infection in her urine. States that she has not been on any antibiotics for about a month she states that her symptoms started a few days ago. She states that she does grow abnormal bacteria out in the past. She does not recall the exact name of these. She states that she had her suprapubic catheter changed about a month ago and is scheduled here in the near future to have this replaced here at [place] [facility]. 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 Leukocytosis Cellulitis of left leg Cellulitis of foot, left Type 2 diabetes mellitus with foot ulcer [...] mg PO BID Beta Pan 08/10/24 History ondansetron 4 mg disintegrating 4 mg PO Q8H PRN PRN Na usea #20 tabs 06/09/24 08/11/24 Rx tablet promethazine 25 mg tablet 25 mg PO TID PRN nausea and 07/31/24 08/01/24 Rx vomiting #20 tabs divalproex 500 mg tablet,delayed 500 mg PO QHS Migrain e Headaches 08/11/24 08/10/24 History release omeprazole 20 mg capsule,delayed 20 mg PO DAILY PPI 08/10/24 History release cholecalciferol (vitamin D3) 125 125 mcg PO DAILY #0 c aps 08/16/24 Unknown Rx mcg (5,000 unit) capsule enoxaparin 40 mg/0.4 mL 40 mg (0.4 mL) subcut BID #0 mL 08/16/24 Unknown Rx subcutaneous syringe insulin glargine-yfgn 100 unit/mL 30 unit (0.3 mL) sub cut QHS #1 mL 08/16/24 Unknown Rx (3 mL) subcutaneous pen insulin lispro 100 unit/mL 12 unit (0.12 mL) subcut TI DCM #0 08/16/24 Unknown Rx subcutaneous pen (Humalog KwikPen mL (U-100) Insulin) insulin lispro 100 unit/mL See Protocol subcut TIDCM # 0 mL 08/16/24 Unknown Rx subcutaneous pen (Humalog KwikPen (U-100) Insulin) linezolid 600 mg tablet 600 mg PO BID #0 tabs Unknown Rx metronidazole 500 mg tablet 500 mg PO TID #22 tabs Unknown Rx oxycodone 5 mg tablet 5 mg PO Q4H PRN PRN Pain Sco re 08/16/24 Unknown Rx 1-10 3 days #10 tabs pregabalin 75 mg capsule 75 mg PO BID #6 caps 5 Unknown Rx nitrofurantoin 100 mg PO Q12 #14 CAPSULES 0 11/20/24 Unknown Rx monohydrate/macrocrystals 100 mg capsule levofloxacin 500 mg tablet 500 mg PO DAILY 5 days #5 t abs 03/09/25 Unknown Rx Allergy/AdvReac Type Severity Reaction Status Date / Time Cephalosporins Allergy Severe Anaphylaxis Verified 03/08/25 18:51 piperacillin (From Zosyn) Allergy Intermediate Hives Verified 03/08/25 18:51 ceftriaxone (From Rocephin) Allergy Anaphylaxis Verified 03/08/25 18:51 mushroom Allergy Anaphylaxis Verified 03/08/25 18:51 peanut Allergy Anaphylaxis Verified 03/08/25 18:51 tazobactam (From Zosyn) Allergy NEEDS Verified 03/08/25 18:51 FOLLOW-UP fentanyl AdvReac Low blood Verified 03/08/25 18:51 pressure gabapentin AdvReac Other Verified 03/08/25 18:51 Gadolinium-MRI Contrast AdvReac Vomiting Verified 03/08/25 18:51 Medium Latex, Natural Rubber AdvReac Rash Verified 03/08/25 18:51 vancomycin AdvReac Rash Verified 03/08/25 18:51 Family History Mother CVA (cerebral vascular accident) [...] History of dilation and curettage Social History (Updated 03/08/25 @ 20:01 by Denise Busby) household members: significant other housing: house Smoking Status: Never smoker alcohol intake: current substance use type: does not use ROS ROS ED ROS Narrative Constitutional: Denies any fevers or chills Cardiovascular: Denies chest pain Respiratory: Denies shortness of breath Abdomen: Complains of nausea as noted above denies abdominal pain : Complains of concern for urinary tract infection as noted above Neurological: Denies any new neurological symptoms Musculoskeletal: Complains of back pain as noted above Skin: Denies any rashes or lesions EXAM Physical Exam Narrative Exam Narrative: General: Patient is lying in bed rest comfortably did not appear to be acute distress Head: Atraumatic, normocephalic Eyes: PERRL bilaterally, EOMI bilaterally, no conjunctival injection noted Neck: Soft, supple, trachea midline Cardiovascular: Regular rate and rhythm Respiratory: Clear to auscultation bilaterally Abdomen: Soft, nondistended, suprapubic catheter in place no surrounding erythema or purulent drainage noted coming from the site itself, colostomy in place Extremities: +5/5 strength noted to bilateral upper and lower extremities Neurological: Patient my commands knew that she was at [facility] year is 25 Skin: Warm, dry contact no rashes lesions noted Const Vital Signs: 03/08/25 18:50 03/08/25 20:00 03/08/25 20:00 Temperature 97.8 F 98 F Temperature Source Temporal Oral Pulse Rate 87 69 Respiratory Rate 16 16 Blood Pressure 148/108 H 109/69 Blood Pressure Mean 121 82 Pulse Ox 100 98 98 Oxygen Delivery Method Room Air Room Air Room Air 03/08/25 21:00 03/08/25 22:00 03/08/25 23:00 Temperature 98.1 F 98 F 98.1 F Temperature Source Oral Oral Oral Pulse Rate 70 71 68 Respiratory Rate 16 16 18 Blood Pressure 124/86 H 134/78 H 123/74 H Blood Pressure Mean 98 96 90 Pulse Ox 99 98 97 Oxygen Delivery Method Room Air Room Air 03/09/25 00:00 03/09/25 00:02 Temperature 98 F 98 F Temperature Source Oral Pulse Rate 62 62 Respiratory Rate 18 18 Blood Pressure 159/62 H 159/62 H Blood Pressure Mean 94 94 Pulse Ox 97 97 Oxygen Delivery Method MDM MDM MDM Narrative Medical decision making narrative: Patient is a 44-year-old female who presented to the emergency department the chief complaint of concern for UTI in the setting of suprapubic catheter as her tubing is extremely cloudy which it was completely clear a few days ago. On thedifferential diagnose includes but not limited to UTI, pyelonephritis, urolithiasis, pyelonephritis. Once workup is obtained reviewed she will be reevaluated. Patient was ordered 30 cc/kg bolus of IV fluids at 1925 which was 2500 mL as she has a BMI of greater than 30 therefore this was based on ideal body weight. Patient was given dose of meropenem based on previous cultures andsensitivities There was significant delay secondary to prolonged wait time of CT read Patient CBC was reviewed and showed a white blood count of 11,000, hemoglobin 14.4 platelet count was noted be 189. Patient INR normal at 0.9, PT 12.1. Patient sodium was 131, potassium normal 4.1 creatinine was normal at 0.92. Patient lactic acid was normal at 2 AST and ALT are 33 and 29 respectively. Patient urinalysis showed thousand glucose 250 occult blood 500 leukocyte esterase 0-5 white cells and 3+ bacteria. Patient's CT abdomen pelvis with IV contrast was reviewed which showed colostomy with additional herniation of bowelbut no obstruction. Right renal scarring with no obstructing stone. Cystic changes of the right adnexa which could represent a prominent cyst or follicle overall no bowel obstruction or abscess. Patient's previous micro urine culturewas reviewed and back in October of this year she had multiple organisms grow out however the colony forming units were noted to be low indicating not a positive culture result. Patient's patient's culture from 09/09/2024 was also reviewed which once again revealed a not positive culture with less than 100,000 colony-forming units as well. Discussed results with the patient and she would like to go home this point time. I did swap out her suprapubic catheter with a 16 Bulgarian nonlatex suprapubic catheter that she already had in. She tolerated this well and no complications. Patient was concerned prior to discharge that the suprapubic w asnot draining appropriately as there is no urine in the Cook bag I advised her that there is likely the case secondary to her not having any urine as there wasa ton of urine in her old suprapubic and Cook bag however she was bladder scanned and there were 17 mL noted in the Cook bag. She is vies follow-up withher doctor in follow-up on urine culture here she will be given a prescription for Levaquin. She is agreeable this plan all question concerns answered she is discharged home in stable condition Lab Data Labs: Laboratory Results - last 24 hr 03/08/25 03/08/25 19:20 19:36 WBC 11.8 H RBC 4.58 Hgb 14.4 Hct 40.8 MCV 89.1 MCH 31.4 MCHC 35.3 RDW Std Deviation 43.2 RDW Coeff of Claude 13.2 Plt Count 189 MPV 10.4 Immature Gran % (Auto) 0.700 Neut % (Auto) 50.2 Lymph % (Auto) 37.6 [place] % (Auto) 10.1 H Eos % (Auto) 1.1 Baso % (Auto) 0.3 Absolute Neuts (auto) 5.9 Absolute Lymphs (auto) 4.42 Nucleated RBC % 0 PT 12.1 INR 0.9 APTT 24.3 Sodium 131 L Potassium 4.1 Chloride 96 L Carbon Dioxide 23.1 Anion Gap 12 BUN 16 Creatinine 0.92 Estim Creat Clear Calc 86.43 Est GFR (MDRD) Non-Af 79 BUN/Creatinine Ratio 17.1 Glucose 402 H Lactic Acid 2.0 Calcium 10.0 Total Bilirubin 0.38 AST 33 H ALT 29 Alkaline Phosphatase 77 Total Protein 7.8 Albumin 4.1 Globulin 3.7 Albumin/Globulin Ratio 1.1 Urine Color Straw Urine Clarity Sl. Cloudy Urine pH 8.0 Ur Specific [place] 1.015 Urine Protein 100 H Urine Glucose (UA) 1000 H Urine Ketones Negative Urine Occult Blood 250 H Urine Nitrite Negative Urine Bilirubin Negative Urine Urobilinogen Normal Ur Leukocyte Esterase 500 H Urine RBC 0-5 SEEN Urine WBC 0-5 SEEN Ur Squamous Epith Cells 0 SEEN Amorphous Sediment 1+ Urine Bacteria 3+ Urine Mucus 0 SEEN Radiography Diagnostic Testing: Clinical Impression(s) from Imaging Studies Abdomen/Pelvis CT 03/08/25 19:21 IMPRESSION: Colostomy on the left with additional herniation of bowel but no obstruction. Right renal scarring with nonobstructing stone. Cystic changes right adnexa which could represent a prominent cyst or follicle. Overall, no bowel obstruction or abscess [facility] Discharge Plan Triage Chief Complaint: Flank Pain ED Provider: Andre Sue Dx/Rx/DC Orders Clinical Impression: Chronic suprapubic catheter, Spina bifida, Colostomy in place Prescriptions: New levofloxacin 500 mg tablet 500 mg PO DAILY 5 Days Qty: 5 0RF No Action atorvastatin 80 mg tablet [...] mg capsule,delayed release(DR/EC) 20 mg PO DAILY cholecalciferol (vitamin D3) 125 mcg (5,000 unit) [...] 75 mg PO BID Qty: 6 0RF propranolol 20 mg tablet 20 mg PO BID loratadine [Allergy Relief (loratadine)] 10 mg tablet 10 mg PO DAILY nitrofurantoin monohyd/m-cryst 100 mg capsule 100 mg PO Q12 Qty: 14 0RF Primary Care Provider: Will Brannon Referrals: Will Brannon MD [Primary Care Provider, [facility]] Activity Restrictions/Additional Instructions: Take antibiotics as prescribed. Follow-up your doctor in outpatient setting andfollow-up on urine culture. Return with worsening symptoms or any other concerns. Print Language: Kinyarwanda Disposition Disposition: Home, Self Care What to do if you have Problems For any increased pain, shortness of breath, bleeding, nausea or vomiting, chestpain, or any unexpected problems, contact your Primary Care Provider. Call [facility] ([phone]) or report tothe closest Emergency Room. Call 911 if necessary. 03/09/25 0004 Cosigner Signature (if applicable): CC: Dr. Will Brannon MD ~ Signed [facility]10-11-2025 Radiology Diagnostic study note [facility] Imaging Services [address] [place] [id number] Abdomen/Pelvis W IV Cont ONLY MR#: [id number] Acct: [id number] Name: DEBBY BAILON Rep #: [id number] : 1980 F 44 From: Dante Gill MD PCP: Dr. Will Brannon MD Status: [facility] ER Study:Abdomen/Pelvis W IV Cont ONLY Date of E xam: 03/08/25 Exam# [id number] Ordering Dr: Ale Sue DO PROCEDURE: ABDOMEN/PELVIS W IV CONT ONLY 03/08/2025 REASON FOR EXAM: BACK PAIN, HX OF UTI WITH STONES TECHNIQUE: Procedure Code: CTABDPELIV Modality: CT Procedure: ABDOMEN/PELVIS W IV CONT ONLY Coronal and Sagittal reconstruction series were provided. CONTRAST: Isovue-300 VOLUME: 75 mL One or more dose reduction techniques were used (e.g., Automated exposure control, adjustment of the mA and/or kV according to patient size, use of iterative reconstruction technique. COMPARISON: 09/2022 FINDINGS: The lung bases are clear. The liver and spleen are unremarkable. The pancreas is unremarkable. The left kidney has a normal appearance. There are areas of scarring involving the right kidney with a nonobstructing calculus in its lower pole. There is a suprapubic catheter in place. No bladder or ureteral calculi are seen. Prior bowel surgery. There is a colostomy on the left which also contains portions of herniated bowel. However, this does not result in a bowel obstruction. There is no pneumatosis or bowel dilatation. Cystic changes in the right adnexa are present measuring up to 4 cm x 3.[address]/Abdomen/Pelvis W IV Cont ONLY IMPRESSION: Colostomy on the left with additional herniation of bowel but no obstruction. Right renal scarring with nonobstructing stone. Cystic changes right adnexa which could represent a prominent cyst or follicle. Overall, no bowel obstruction or abscess Reading Location: [facility] CC: Dr. Will Brannon MD; Dr. Andre Sue DO ~ Newspaper Illustrator: Signed [facility]10-11-2025 Discharge summary Author Andre Sue [facility] Note Date/Time March 09, 2025 1 2:05am [facility] Medical Records Department [address] [place] [address] Emergency Department Summary 03/08/25 MR#: [id number] Acct: [id number] Name: DEBBY BAILON Rep #:[id number] : 1980 44 From: Andre Sue DO PCP: Dr. Will Brannon MD Status:[facility] ER Location: ED ADDENDUM by Dr. Andre Seu DO on 03/09/25 at 0005 Patient is EKG reviewed showed sinus rhythm with a rate of 81 bpm with a NC interval normal at 148. 03/09/25 0005<Electronically signed by Andre Sue DO> Cosigner Signature (if applicable): cc: Dr. Will Brannon MD ~* Signed HPI History of Present Illness Chief Complaint: Flank Pain Narrative Narrative: Patient is a 44-year-old female with past medical history of spina bifida with ahistory of a suprapubic catheter as well as colostomy, type 2 diabetes, chronic kidney disease, hypertension who presented to the emergency department chief complaint of back pain and concern for a infection in her urine. States that she has not been on any antibiotics for about a month she states that her symptoms started a few days ago. She states that she does grow abnormal bacteria out in the past. She does not recall the exact name of these. She states that she had her suprapubic catheter changed about a month ago and is scheduled here in the near future to have this replaced here at [place]. 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 Leukocytosis Cellulitis of left leg Cellulitis of foot, left Type 2 diabetes mellitus with foot ulcer [...] mg PO BID Beta Pan 08/10/24 History ondansetron 4 mg disintegrating 4 mg PO Q8H PRN PRN Na usea #20 tabs 06/09/24 08/11/24 Rx tablet promethazine 25 mg tablet 25 mg PO TID PRN nausea and 07/31/24 08/01/24 Rx vomiting #20 tabs divalproex 500 mg tablet,delayed 500 mg PO QHS Migrain e Headaches 08/11/24 08/10/24 History release omeprazole 20 mg capsule,delayed 20 mg PO DAILY PPI 08/10/24 History release cholecalciferol (vitamin D3) 125 125 mcg PO DAILY #0 c aps 08/16/24 Unknown Rx mcg (5,000 unit) capsule enoxaparin 40 mg/0.4 mL 40 mg (0.4 mL) subcut BID #0 mL 08/16/24 Unknown Rx subcutaneous syringe insulin glargine-yfgn 100 unit/mL 30 unit (0.3 mL) sub cut QHS #1 mL 08/16/24 Unknown Rx (3 mL) subcutaneous pen insulin lispro 100 unit/mL 12 unit (0.12 mL) subcut TI DCM #0 08/16/24 Unknown Rx subcutaneous pen (Humalog KwikPen mL (U-100) Insulin) insulin lispro 100 unit/mL See Protocol subcut TIDCM # 0 mL 08/16/24 Unknown Rx subcutaneous pen (Humalog KwikPen (U-100) Insulin) linezolid 600 mg tablet 600 mg PO BID #0 tabs Unknown Rx metronidazole 500 mg tablet 500 mg PO TID #22 tabs Unknown Rx oxycodone 5 mg tablet 5 mg PO Q4H PRN PRN Pain Sco re 08/16/24 Unknown Rx 1-10 3 days #10 tabs pregabalin 75 mg capsule 75 mg PO BID #6 caps 5 Unknown Rx nitrofurantoin 100 mg PO Q12 #14 CAPSULES 0 11/20/24 Unknown Rx monohydrate/macrocrystals 100 mg capsule levofloxacin 500 mg tablet 500 mg PO DAILY 5 days #5 t abs 03/09/25 Unknown Rx Allergy/AdvReac Type Severity Reaction Status Date / Time Cephalosporins Allergy Severe Anaphylaxis Verified 03/08/25 18:51 piperacillin (From Zosyn) Allergy Intermediate Hives Verified 03/08/25 18:51 ceftriaxone (From Rocephin) Allergy Anaphylaxis Verified 03/08/25 18:51 mushroom Allergy Anaphylaxis Verified 03/08/25 18:51 peanut Allergy Anaphylaxis Verified 03/08/25 18:51 tazobactam (From Zosyn) Allergy NEEDS Verified 03/08/25 18:51 FOLLOW-UP fentanyl AdvReac Low blood Verified 03/08/25 18:51 pressure gabapentin AdvReac Other Verified 03/08/25 18:51 Gadolinium-MRI Contrast AdvReac Vomiting Verified 03/08/25 18:51 Medium Latex, Natural Rubber AdvReac Rash Verified 03/08/25 18:51 vancomycin AdvReac Rash Verified 03/08/25 18:51 Family History Mother CVA (cerebral vascular accident) Thyroid disorder Diabetes Hypertension Heart disease Hyperlipidemia Myocardial infarction, Onset Age: 54 mother had diabetes Father Cancer skin Grandmother Cancer liver Other Arthritis Skin cancer Surgical History S/P colostomy S/P thyroid biopsy (~06/10/20) history insertion suprapubic catheter Status post gastric surgery Hx of foot surgery Hx of ventral hernia repair History of spinal surgery History of cholecystectomy History of dilation and curettage Social History (Updated 03/08/25 @ 20:01 by Denise Busby) household members: significant other housing: house Smoking Status: Never smoker alcohol intake: current substance use type: does not use ROS ROS ED ROS Narrative Constitutional: Denies any fevers or chills Cardiovascular: Denies chest pain Respiratory: Denies shortness of breath Abdomen: Complains of nausea as noted above denies abdominal pain : Complains of concern for urinary tract infection as noted above Neurological: Denies any new neurological symptoms Musculoskeletal: Complains of back pain as noted above Skin: Denies any rashes or lesions EXAM Physical Exam Narrative Exam Narrative: General: Patient is lying in bed rest comfortably did not appear to be acute distress Head: Atraumatic, normocephalic Eyes: PERRL bilaterally, EOMI bilaterally, no conjunctival injection noted Neck: Soft, supple, trachea midline Cardiovascular: Regular rate and rhythm Respiratory: Clear to auscultation bilaterally Abdomen: Soft, nondistended, suprapubic catheter in place no surrounding erythema or purulent drainage noted coming from the site itself, colostomy in place Extremities: +5/5 strength noted to bilateral upper and lower extremities Neurological: Patient my commands knew that she was at [facility] year is Skin: Warm, dry contact no rashes lesions noted Const Vital Signs: 03/08/25 18:50 03/08/25 20:00 03/08/25 20:00 Temperature 97.8 F 98 F Temperature Source Temporal Oral Pulse Rate 87 69 Respiratory Rate 16 16 Blood Pressure 148/108 H 109/69 Blood Pressure Mean 121 82 Pulse Ox 100 98 98 Oxygen Delivery Method Room Air Room Air Room Air 03/08/25 21:00 03/08/25 22:00 03/08/25 23:00 Temperature 98.1 F 98 F 98.1 F Temperature Source Oral Oral Oral Pulse Rate 70 71 68 Respiratory Rate 16 16 18 Blood Pressure 124/86 H 134/78 H 123/74 H Blood Pressure Mean 98 96 90 Pulse Ox 99 98 97 Oxygen Delivery Method Room Air Room Air 03/09/25 00:00 03/09/25 00:02 Temperature 98 F 98 F Temperature Source Oral Pulse Rate 62 62 Respiratory Rate 18 18 Blood Pressure 159/62 H 159/62 H Blood Pressure Mean 94 94 Pulse Ox 97 97 Oxygen Delivery Method MDM MDM MDM Narrative Medical decision making narrative: Patient is a 44-year-old female who presented to the emergency department the chief complaint of concern for UTI in the setting of suprapubic catheter as her tubing is extremely cloudy which it was completely clear a few days ago. On thedifferential diagnose includes but not limited to UTI, pyelonephritis, urolithiasis, pyelonephritis. Once workup is obtained reviewed she will be reevaluated. Patient was ordered 30 cc/kg bolus of IV fluids at 1925 which was 2500 mL as she has a BMI of greater than 30 therefore this was based on ideal body weight. Patient was given dose of meropenem based on previous cultures andsensitivities There was significant delay secondary to prolonged wait time of CT read Patient CBC was reviewed and showed a white blood count of 11,000, hemoglobin 14.4 platelet count was noted be 189. Patient INR normal at 0.9, PT 12.1. Patient sodium was 131, potassium normal 4.1 creatinine was normal at 0.92. Patient lactic acid was normal at 2 AST and ALT are 33 and 29 respectively. Patient urinalysis showed thousand glucose 250 occult blood 500 leukocyte esterase 0-5 white cells and 3+ bacteria. Patient's CT abdomen pelvis with IV contrast was reviewed which showed colostomy with additional herniation of bowelbut no obstruction. Right renal scarring with no obstructing stone. Cystic changes of the right adnexa which could represent a prominent cyst or follicle overall no bowel obstruction or abscess. Patient's previous micro urine culturewas reviewed and back in October of this year she had multiple organisms grow out however the colony forming units were noted to be low indicating not a positive culture result. Patient's patient's culture from 09/09/2024 was also reviewed which once again revealed a not positive culture with less than 100,000 colony-forming units as well. Discussed results with the patient and she would like to go home this point time. I did swap out her suprapubic catheter with a 16 Bulgarian nonlatex suprapubic catheter that she already had in. She tolerated this well and no complications. Patient was concerned prior to discharge that the suprapubic wasnot draining appropriately as there is no urine in the Cook bag I advised her that there is likely the case secondary to her not having any urine as there wasa ton of urine in her old suprapubic and Cook bag however she was bladder scanned and there were 17 mL noted in the Cook bag. She is vies follow-up withher doctor in follow-up on urine culture here she will be given a prescription for Levaquin. She is agreeable this plan all question concerns answered she is discharged home in stable condition Lab Data Labs: Laboratory Results - last 24 hr 03/08/25 03/08/25 19:20 19:36 WBC 11.8 H RBC 4.58 Hgb 14.4 Hct 40.8 MCV 89.1 MCH 31.4 MCHC 35.3 RDW Std Deviation 43.2 RDW Coeff of Claude 13.2 Plt Count 189 MPV 10.4 Immature Gran % (Auto) 0.700 Neut % (Auto) 50.2 Lymph % (Auto) 37.6 [place] % (Auto) 10.1 H Eos % (Auto) 1.1 Baso % (Auto) 0.3 Absolute Neuts (auto) 5.9 Absolute Lymphs (auto) 4.42 Nucleated RBC % 0 PT 12.1 INR 0.9 APTT 24.3 Sodium 131 L Potassium 4.1 Chloride 96 L Carbon Dioxide 23.1 Anion Gap 12 BUN 16 Creatinine 0.92 Estim Creat Clear Calc 86.43 Est GFR (MDRD) Non-Af 79 BUN/Creatinine Ratio 17.1 Glucose 402 H Lactic Acid 2.0 Calcium 10.0 Total Bilirubin 0.38 AST 33 H ALT 29 Alkaline Phosphatase 77 Total Protein 7.8 Albumin 4.1 Globulin 3.7 Albumin/Globulin Ratio 1.1 Urine Color Straw Urine Clarity Sl. Cloudy Urine pH 8.0 Ur Specific [place] 1.015 Urine Protein 100 H Urine Glucose (UA) 1000 H Urine Ketones Negative Urine Occult Blood 250 H Urine Nitrite Negative Urine Bilirubin Negative Urine Urobilinogen Normal Ur Leukocyte Esterase 500 H Urine RBC 0-5 SEEN Urine WBC 0-5 SEEN Ur Squamous Epith Cells 0 SEEN Amorphous Sediment 1+ Urine Bacteria 3+ Urine Mucus 0 SEEN Radiography Diagnostic Testing: Clinical Impression(s) from Imaging Studies Abdomen/Pelvis CT 03/08/25 19:21 IMPRESSION: Colostomy on the left with additional herniation of bowel but no obstruction. Right renal scarring with nonobstructing stone. Cystic changes right adnexa which could represent a prominent cyst or follicle. Overall, no bowel obstruction or abscess Reading Location: [facility] Discharge Plan Triage Chief Complaint: Flank Pain ED Provider: Andre Sue Dx/Rx/DC Orders Clinical Impression: Chronic suprapubic catheter, Spina bifida, Colostomy in place Prescriptions: New levofloxacin 500 mg tablet 500 mg PO DAILY 5 Days Qty: 5 0RF No Action atorvastatin 80 mg tablet [...] mg capsule,delayed release(DR/EC) 20 mg PO DAILY cholecalciferol (vitamin D3) 125 mcg (5,000 unit) [...] 75 mg PO BID Qty: 6 0RF propranolol 20 mg tablet 20 mg PO BID loratadine [Allergy Relief (loratadine)] 10 mg tablet 10 mg PO DAILY nitrofurantoin monohyd/m-cryst 100 mg capsule 100 mg PO Q12 Qty: 14 0RF Primary Care Provider: Will Brannon Referrals: Will Brannon MD [Primary Care Provider, Family Practice] Activity Restrictions/Additional Instructions: Take antibiotics as prescribed. Follow-up your doctor in outpatient setting andfollow-up on urine culture. Return with worsening symptoms or any other concerns. Print Language: Kinyarwanda Disposition Disposition: Home, Self Care What to do if you have Problems For any increased pain, shortness of breath, bleeding, nausea or vomiting, chestpain, or any unexpected problems, contact your Primary Care Provider. Call [facility] ([phone]) or report to the closest Emergency Room. Call 911 if necessary. 03/09/25 0004 <Electronically signed by Andre Sue DO> Abel Signature (if applicable): CC: Dr. Will Brannon MD ~ Signed [facility] Work Phone: [phone] History of Present illness Narrative* Naty Haddad LPN - 02/11/2025 3:47 PM EDT CC Supra pubic catheter in Place HPI: Debby Balion is a 44 year old female. The patient is here now for a supra pubic catheter change with diagnosis neurogenic bladder. Procedure: Performed a catheter change. The indwelling supra pubic cook size 16 Fr was removed with small amount of resistance- catheter tip intact Cleansed area with wipe (baby) due to sediment surrounding abdomen. Inserted 16 Fr catheter using aseptic technique. Irrigated with 60 mL 0.9% sodium chloride. Approximately 60 mL cloudy clearish sediment return noted throughout. Bulb inflated with 10 mLs prefilled syringes- sterile water. T-Sponge applied to SPT base per patient preference attached to drainage bag. The patient tolerated the procedure well. Patient does not like tubing secured. Assessment/Plan: Successful catheter change. Return for catheter changes as planned. Naty Haddad LPN [facility]. MICRO - Microbiology PROCEDURE: Urine Culture [O1 *1] SOURCE: Urine BODY SITE: COLLECTED DATE/TIME: 01/29/2025 23:46 EDT RECEIVED DATE/TIME: 01/30/2025 15:24 EDT START DATE/TIME: 01/30/2025 15:24 EDT FREE TEXT SOURCE: FINAL REPORTS Final Report [] Verified Date/Time/Personnel: 01/31/2025 14:06 EDT >100,000 cfu/ml Multiple bacterial morphotypes present. Probable Contamination. Suggest recollection if clinically indicated. PRELIMINARY REPORTS Preliminary Report [] Verified Date/Time/Personnel: 01/30/2025 15:59 EDT Specimen received in lab. Order Comments O1: Urine Culture Added by Discern Performing Locations *1: This test was performed at: [facility], [address] [place] [address], [id number]- , [facility]09-04-2025 Hospital Discharge instructions Patient Education 01/30/2025 00:17:02 Abdominal Pain, Unknown Cause, (Female) Unknown Causes [...] or water and you are getting dehydrated [id number] [employer] [address] [place] [address]. All rights reserved. This information is not intended as a substitute for professional medical care. Always follow yourhealthcare professional's instructions. Follow Up Care 01/29/2025 22:47:27 With:WILL BRANNON MD Address: [address] [place] [id number]- When:2-4 days [facility] 09-04-2025 Note Discharge Instructions Thank you for allowing [facility] to assist you with your healthcare needs. The following is importantdischarge information regarding your hospital visit. Diagnosis from Today's Visit Abdominal pain What to Do Next Instructions from Your Care Team No qualifying data available. Post Acute Orders No qualifying data available. You Need to Schedule the Following Appointments Follow Up with WILL BRANNON MD When:Within 2-4 days Where:[address] [place] [address]- Allergies Mushrooms(Severe) Throat swelling Peanuts(Severe) Throat swelling [...] When Why Instructions Last Dose New acetaminophen-hydrocodone (Adelanto 325- 5 mg oral tablet) 1 tab(s) by mouth Every 6 hours as needed for as needed for pain Abdominal pain Duration: 3 Days Printed Prescription New ondansetron (ondansetron 4 mg oral tablet, disintegrating) 1 tab(s) by mouth Every 6 hours as needed for Nausea/Vomiting Duration: 4 Days Printed Prescription Unchanged apixaban [...] or water and you are getting dehydrated [id number] [employer] [address] [place] [address]. All rights reserved. This information is not intended as a substitute for professional medical care. Always follow yourhealthcare professional's instructions. Additional Information VACCINATE! IT SAVES LIVES! Members of the community who have not yet received the COVID-19 vaccine and would like to receive it can visit one of [facility] vaccine clinics. There are many vaccine clinic locations within the [facility]. For locations and available times, please visit www.gettheshot.coronavirus.[place].gov/. It is important to note that some COVID mobile vaccine clinics are held outdoors and may be canceled in rainy or stormy conditions. To learn more about pediatric vaccinations (ages 5-11), we invite you to visit the [facility] webpage. [email or web address]/[email or web address] learn more about the COVID-19 vaccine, we invite you to visit the CDC website for a list of frequently asked questions. https://www.cdc.gov/coronavirus/2019-ncov/vaccines/faq.html [facility] Patient Portal Access Instructions: Stay connected with your healthcare team and access your personal medical information anytime with the [facility] Patient Portal. If you would like a full copy of your medical records please contact the [facility] Medical Records Department Monday through Monday between 8a.m. and 4:30p.m. Please follow the directions below to access the portal: 1.Access the email account you provided upon registration to the hospital.2.Look for an invitation email from [facility].3.Open the email and access the invitation link: Accept Invitation to [facility]4.Fill in the required hartley to create your account. Sign into [email or web address] with your username and password that you [...] you will allow to register on the [facility] Patient Portal for access to your information. You can also access the [facility] Patient Portal on the [employer]. Simply click on Health Records under [employer]cloudData and then click on the EyeEm logo. HOW TO SAFELY DISPOSE OF PRESCRIPTION [...] Call your local pharmacy or go to http://bit.Art of Defence/5W9Xk1t to find one close to you.3.Make use of household items: Use cat litter or old coffee grounds to dispose medications if other options arenot available. Mix your drugs with these household products, seal them in an airtight container andthrow it into the garbage. Call [facility]: [phone] to be sure your drugs can be [...] aware that I should contact my doctor. 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 A refill has been sent to your pharmacy. - You are currently taking oxybutynin for bladder spasms. Continue this medication as prescribed. - You mentioned blood in your urine last night, which resolved on its own. Please monitor for any recurrence or other symptoms such as fever, increased pain, or persistent blood in your urine. If these occur, contact Dr. Hancock or our office promptly. - You are experiencing swelling in your legs after walking, which resolves on its own. Continue monitoring this and let us know if it worsens or does not improve. - You reported no new skin lesions, rashes, or sores since your last surgery, and no recent issues with bruising, bleeding, or other concerning symptoms. We discussed your diabetic foot care: - [facility]. Please follow up with them after this visit to complete the necessary paperwork for authorization. We discussed your thyroid cyst and swallowing issues: - Continue monitoring for any changes in the size of the cyst or new symptoms such as increased difficulty swallowing or noticeable lumps. Let us know if these occur. We discussed your vaccinations: - You received an updated pneumonia vaccine today. You may not need another dose in the future. Follow-up instructions: - Schedule an appointment with Dr. Hancock to address your recurrent bladder infections and discuss antibiotic resistance. - Schedule a follow-up appointment with Corrine Craig and reschedule your missed appointment with or Araceli Torres. - Continue attending the counseling center as needed for support. Please contact our office if you have any new or worsening symptoms or concerns. documented [facility] History of Present illness Narrative* Will Brannon MD - 01/24/2025 10:40 AM EDT Images from the original note were not included. Debby Bailon is a 44 year old female here for a Medicare wellness visit. Medicare Health Risk Assessment General Health Fair Exercise: Minutes/Day 30 min Exercise: Days/Week 5 days Alcohol: Daily Use Never Alcohol: Drinks/Day Patient does not drink Alcohol: 6 or more drinks Never Feel off balance Yes Concerns: Teeth/Dentures Yes Concerns: Sexual function No Troubled by feelings Anxious; Stressed; Lonely Frequency: Eating healthy diet Nearly every day ADLs requiring help Bathing; Sitting or standing; Walking; Driving Safety precautions in home/vehicle Yes Smoke, vape, chews tobacco No Difficulty hearing No Difficulty seeing No Current Providers Specialists: I have reviewed specialist-related care of the patient in the medical record. Medical/Family history review Reviewed and updated problem list, medical/surgical/family/social history, medications, and allergies. Opioid use review Opioid Medications (last 90 days) No data to display Anxiety/Depression screening PHQ-9 Score: 1 (Minimal Depression) KIERSTEN-7 Score: 0. Recommendation: continuing current treatment plan Cognitive screening Cognitive screening reviewed and - not done since patient is not 65 or older. Functional Observation Was the patient's Timed Up & Go test unsteady or >= 12 seconds? No Advance Care Planning Patient did not wish or was not able to name a surrogate decision maker or provide an advance care plan Measurements BP 112/80 (BP Site: Right Arm, BP Position: Sitting, BP Cuff Size: Large Adult) Pulse 78 Resp 16 Ht 155.6 cm (5' 1.25) Wt 98 kg (216 lb) LMP 11/26/2024 (Exact Date) BMI 40.48 kg/m Vision Screening: Follows with optometry/ophthalmology Assessment/Plan Medicare annual wellness visit, subsequent (Z00.00) - Counseled on healthy diet and regular exercise - Fall avoidance information provided - Personalized prevention plan provided See below Chief Complaint Patient presents with: Medicare Wellness Exam HPI Debby Bailon is a 44 year old female who presents here today for a routine follow up. Pt seen in [facility] ED on 12/14/24 for UTI symptoms. Had follow up with Urology Nurse, due to having neurogenic bladder. Patient has indwelling supra pubic cook catheter. Patient follows with Urology, SAVANA Hillman. Patient history complex hx of uncontrolled DM, [...] now seeing Nilda Underwood for her diabeties. Patient still with the counseling center. Debby reports a recent episode of hematuria observed last night during a shower, which resolved spontaneously. She denies any accidental tugging on her suprapubic catheter. She continues to experience recurrent urinary tract infections and notes that oral antibiotics have become less effective, nec essitating a consultation with Dr. Hancock her urologist. She is currently on oxybutynin for bladder spasms. She also reports intermittent swelling in her legs, particularly after walking, which subsides later. She denies any recent chest pain, palpitations, or changes in her tolerance to heat or cold. She is currently taking omeprazole as needed for heartburn, initially prescribed due to esophageal irritation observed during a scope performed in March or April. She denies any recent fevers, headac hes, or changes in vision or hearing. She also denies any recent issues with her nose or throat, other than dysphagia related to her thyroid cyst. She has not noticed any new lumps or swelling in herneck. Debby reports no recent wheezing, dyspnea, hemoptysis, or colomycus. She also denies any recent nausea, vomiting, or diarrhea. She has not observed any new skin lesions, rashes, or sores, and deniesany easy bruising or bleeding. She reports no recent symptoms of hypoglycemia, syncope, seizures, or tremors. She has [facility] and is in the process of obtaining diabetic shoes. She has lost weight since June and attributes this to improved diet and increased physical activity, including regular walks and social interactions. Past medical history, appointments, medications, allergies reviewed. Previous Medical History PAST MEDICAL HISTORY Diagnosis Date Amputation of left great toe 06/25/2020 Arthritis started age 19 Bilateral leg edema 07/16/2018 Cervical radiculopathy 05/02/2013 Chronic pain 02/12/[address] ([facility]) 09/30/2021 Constipation due to outlet dysfunction 10/07/2021 Cyst of ovary 11/28/2011 Diabetes mellitus with peripheral vascular disease ([facility]) 03/29/2023 Diabetic eye exam ([facility]) 06/17/2016 Last done: 01/25/2017 Diabetic eye exam ([facility]) 06/17/2016 Last done: 03/08/2019 DJD (degenerative joint disease), thoracic DM (diabetes mellitus), secondary, uncontrolled, 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 Elevated LFTs 03/11/2020 Essential hypertension 02/21/2019 Fatty liver 03/11/2020 US 10/2019 History of amputation of great toe ([facility]) 01/24/2025 History of amputation of left great toe ([facility]) 06/25/[address] 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 Will monitor. Lipomeningocele, sacral level 09/12/2013 Lumbago 02/12/2015 Major depressive disorder, recurrent, mild 03/29/2023 Medicare annual wellness visit, subsequent 02/28/2018 last done: 02/28/2018 Migraine without aura and without status migrainosus, not intractable 10/18/2016 Miscarriage ([facility]) Mixed hyperlipidemia 02/28/2018 Moderate recurrent major depression ([facility]) 09/28/2023 Morbid obesity with BMI of 40.0-44.9, adult ([facility]) 01/24/2025 Muscle weakness of left lower extremity 08/07/2013 [...] 10/18/2016 Type 2 diabetes mellitus with proteinuria ([facility]) 02/19/2016 Ventral hernia without obstruction or gangrene [...] OF Left 01/2021 bone removed left foot PAST SURGICAL HISTORY OF Left 07/2024 x 2 surgeries 4 days apart, for infection in L heel. Debridement with closing area REPAIR UMBILICAL HERNIA 12/11/2017 STRESS ECHO 12/09/2019 [...] on File Prior to Visit Medication Sig Drainage Bag misc 1 each every 2 weeks. sodium chloride irrig solution (NACL 0.9% IRRIGATION BOTTLE) To use for catheter irrigation daily or as needed. Urinary Bag (URINARY LEG BAG) kit Use as directed with suprapublic catheter. irrigation set (BARD IRRIGATION TRAY MISC) once every month. Urinary Bag (UROSTOMY NIGHT BAG) misc Urinary Night Bag. Use as directed with suprapublic catheter. divalproex DR (DEPAKOTE) 500 mg EC tablet [...] Take 1 capsule by mouth once daily. insulin aspart, niacinamide, (FIASP FLEXTOUCH U-100 INSULIN) [...] FOR CONTINUOUS GLUCOSE MONITORING. MULTIPLE INSULIN INJECTIONS. (Patient not taking: Reported on 12/03/2024) Blood-Glucose Meter,Continuous (FREESTYLE ROSA 3 READER) [facility] DISPENSE ONE READER KIT. USE FOR CONTINUOUS GLUCOSE MONITORING. MULTIPLE INSULIN INJECTIONS. E11.9 loratadine (CLARITIN) 10 mg tablet Take 1 [...] mouth once daily. Per Dr. Ermias Salomon Insulin [place], Disposable, (COMFORT EZ PEN NEEDLES) 29 gauge [...] once daily. Rinse mouth after use. Insulin [place], Disposable, 32 gauge x 5/16 ndle Use once daily with Victoza COMPOUNDED PRESCRIPTION Stoma catheter tube. DX: Qo5.4 and K59.2 No current facility-administered medications on file prior to visit. Social History SOCIAL HISTORY[1] Review of Symptoms REVIEW OF SYSTEMS GENERAL: No unintentional weight loss, malaise or fevers HEENT: Negative for frequent or significant headaches, No changes in hearing or vision, no nose bleeds or other nasal problems NECK: Negative for lumps, goiter, pain and significant neck swelling RESPIRATORY: Negative for cough, hemoptysis, wheezing, COPD, dyspnea or shortness of breath CARDIOVASCULAR: Negative for chest pain, increased leg swelling, hypertension, CHF or palpitations GI: No nausea, vomiting, or diarrhea and No heartburn or reflux symptoms : has some gross hematuria last night for short period ad then resolved. MUSCULOSKELETAL: Negative for new or changes in her typical joint pain or swelling, back pain or muscle pain SKIN: Negative for lesions, rash, and itching PSYCH: seeing psych. HEMATOLOGY/LYMPHOLOGY: Negative for prolonged bleeding, bruising easily or swollen nodes ENDOCRINE: Negative for cold or heat intolerance, symptoms of low BS's NEURO: No history of headaches, syncope, paralysis, seizures or tremors SEE HPI EXAM: BP 112/80 (BP Site: Right Arm, BP Position: Sitting, BP Cuff Size: Large Adult) Pulse 78 Resp 16 Ht 155.6 cm (5' 1.25) Wt 98 kg (216 lb) LMP 11/26/2024 (Exact Date) BMI 40.48 kg/m Last 4 Encounter Wt Readings: Date: Wt: 01/24/2025 98 kg (216 lb) 12/03/2024 98.9 kg (218 lb) 07/11/2024 100.7 kg (222 lb) 07/09/2024 100.2 kg (220 lb 12.8 oz) General Appearance: Well appearing, alert, in no acute distress, well-hydrated, well nourished. andMorbidly obese. Skin: Skin color, texture, turgor normal, no suspicious rashes or lesions in visible areas. Patientdeclined gown. Head: Normocephalic, no masses, lesions, tenderness or abnormalities. Eyes: Anicteric sclera. Pupils are equally round and reactive to light. Extraocular movements are intact. . Ears: External ears, TM's normal, canals clear. Nose/Sinuses: Nares normal, septum midline, mucosa normal, no drainage or sinus tenderness. Oropharynx: Lips, mucosa, and tongue normal, teeth and gums normal, oropharynx normal. Neck: Supple, no adenopathy; thyroid symmetric, normal size, no bruits. Lungs: Lungs clear to auscultation. No wheezing, rhonchi, rales.. Heart: RRR without murmur, gallop, or rubs. No ectopy. Abdomen: Abdomen soft, non-distended. Has her typical suprapubic discomfort.. Bowel sounds normal. No masses, organomegaly. Extremities: No deformities, edema, skin discoloration, Good capillary refill. . Musculoskeletal: Spine range of motion normal. Muscular strength intact with chronic decreased strength in the legs, No joint swelling, deformity, or tenderness. Peripheral Pulses: Normal. Neurologic: Gait normal. Reflex absent at left knee normal on the right. Sensation to light touch intact in the upper extremities and significantly diminished in the lower ext. Crainal nerves 2-12 intact. Foot exams done per podiatry. Health Maintenance List Cervical Cancer Screening due on 05/02/2024 Medicare Annual Wellness Visit due on 09/27/2024 HbA1C due on 11/28/2024 Mammogram Screening due on 04/24/2025 Influenza Vaccine(1) due on 01/27/2025 Dilated Retinal Exam due on 05/03/2025 LDL Cholesterol due on 08/29/2025 Annual PCP Team Chronic Disease Visit due on 01/24/2026 DTaP,Tdap,Td Vaccine(3 - Td or Tdap) due on 03/23/2031 Pneumococcal Vaccine(3 of 3 - PCV20 or PCV21) due on 11/13/2031 Hepatitis C Screening Completed HIV Screening Completed Hepatitis B Vaccine Discontinued Urine Albumin:Creatinine Ratio Discontinued Diabetic Foot Exam Discontinued HPV Vaccine Discontinued Data reviewed External lab Latest Ref Rng 08/29/2024 Protein, Total 6.3 - 8.0 g/dL 6.7 Albumin 3.9 - 4.9 g/dL 3.5 (L) Calcium 8.5 - 10.2 mg/dL 9.1 Bilirubin, Total 0.2 - 1.3 mg/dL <0.2 (L) Alkaline Phosphatase 34 - 123 U/L 108 AST 13 - 35 U/L 43 (H) ALT 7 - 38 U/L 26 Glucose 74 - 99 mg/dL 236 (H) BUN 7 - 21 mg/dL 10 Creatinine 0.58 - 0.96 mg/dL 0.70 Sodium 136 - 144 mmol/L 140 Potassium 3.7 - 5.1 mmol/L 4.2 Chloride 98 - 107 mmol/L 104 CO2 22 - 30 mmol/L 25 Anion Gap 8 - 15 mmol/L 11 eGFR >=60 mL/min/1.73m 111 Total Cholesterol, Nonfasting <200 mg/dL 84 Triglycerides, Nonfasting <150 mg/dL 213 (H) HDL Cholesterol, Nonfasting >39 mg/dL 23 (L) LDL Cholesterol Calculated, Nonfasting <100 mg/dL 18 Non HDL Cholesterol, Nonfasting <130 mg/dL 61 VLDL Cholesterol, Nonfasting <30 mg/dL 43 (H) Total Chol/HDL Ratio, Nonfasting <5.10 mg/dL 3.65 LDL/HDL Ratio, Nonfasting <2.54 mg/dL 0.78 Creatinine, Ur Random (UCRR) 20.0 - 300.0 mg/dL 59.8 Albumin, Urine Random mg/L 91.3 Albumin/Creat Ratio <30 mg/g 153 (H) Hemoglobin A1C 4.3 - 5.6 % 11.1 (H) Estimated Average Glucose mg/dL 272 FIB-4 Calculation: 0.98 at 01/24/2025 11:48 AM Calculated from: SGOT/AST: 26 U/L at 01/24/2025 11:48 AM SGPT/ALT: 35 U/L at 01/24/2025 11:48 AM Platelets: 193 k/uL at 01/24/2025 11:48 AM Age: 44 years Legend: (L) Low (H) High Assessment and Plan 1. Medicare annual wellness visit, subsequent (00.) Annual wellness visit conducted; reviewed current health status, ongoing conditions, and preventivecare needs. - Addressed ongoing management of chronic conditions and preventive care needs. - updated on -20 - advised on continued work on weight loss. 2. Diabetes mellitus with peripheral vascular disease (HCC) (E11.51) 3. 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) (E11.29) 4. 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) (E11.29) 5. Diabetic eye exam ([facility]) (Z01.00) Diabetes management is ongoing with regular podiatry follow-up; patient is being fitted for diabetic shoes. - once received will complete necessary paperwork for diabetic shoes authorization. - pt to cont f/u with Endo for management of her diabetes. - check CMP, UA, Lipid - eye exam up to date - - because of her neuropathy and vacsular issues in her lower extremities from her dibetes pt continues to benefit from wearing diabetic shoes. 6. Essential hypertension (I10) Blood pressure is well controlled. - Continue current management. - check CMP, lipid and UA 7. Mixed hyperlipidemia (E78.2) Ongoing management of lipid levels. - Continue current management with lipitor. - check CMP, lipid and UA 8. Migraine without aura and without status migrainosus, not intractable (G43.009) No recent headaches reported. - Continue current management. 9. Bilateral leg edema (R60.0) Edema noted after walks, resolves with rest. - Continue current management with Lasix. - await CMP 10. Neuropathy (G62.9) Decreased sensation in lower extremities, consistent with neuropathy. - Continue current management. - follows with Neuro and on Lyrica per their management. - because of her neuropathy and vacsular issues in her lower extremities from her dibetes pt continues to benefit from wearing diabetic shoes. 11. Paroxysmal SVT (supraventricular tachycardia) (HCC) (I47.10) No recent episodes reported. - Continue current management with propranolol 20 mg BID. 12. Thyroid cyst (E04.1) - order placed to have follow-up study in 03/2025. - Continue current management. 13. Gastroesophageal reflux disease with esophagitis without hemorrhage (K21.00) GERD managed with omeprazole as needed; initial prescription followed endoscopic findings of esophageal irritation. - Refill omeprazole as needed. - check Mg and B12 14. Anxiety and depression (F41.9) 15. Dysthymic disorder (F34.1) 16. Major depressive disorder, recurrent, mild (F33.0) 17. Panic attacks (F41.0) Ongoing management with the [facility] 18. Primary insomnia (F51.01) - well controlled with current dose of trazodone. 19. Hypomagnesemia (E83.42) Ongoing management. - Continue current management. - chekc Mg 20. Hyponatremia (E87.1) Ongoing management. - Continue current management. - await CMP 21. Fatty liver (K76.0) Ongoing management. - Continue current management. - pt to work on weight loss. - wait lipids, CMP and CBC. will calculate Fib4 to determine if any risk for fibrosis. if so will need US with elastography. 22. 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 - Continue cf/u with Neuro 23. Morbid obesity with BMI of 40.0-44.9, adult ([facility]) (E66.01) Patient has lost weight since June and is eating better. - Continue current management. 24. Spina bifida, unspecified hydrocephalus presence, unspecified spinal region ([facility]) (Q05.9) Ongoing management. - Continue follow up with Neuro 25. Neurogenic bladder (N31.9) - has suprapubic catheter in place managed by Urology. Pt on oxybutinin for spasms. 26. Neurogenic bowel (K59.2) - has a colostomy. 27. Colostomy in place ([facility]) (Z93.3) - willl continue to need suplies. 28. Encounter for care or replacement of suprapubic tube ([facility]) (Z43.5) Patient has a suprapubic catheter in place and is on oxybutynin for bladder spasms; recent hematuria noted, with ongoing issues of recurrent infections and antibiotic resistance. - Continue oxybutynin for bladder spasms. - Follow-up with Dr. Hancock for ongoing management of recurrent infections and antibiotic resistance. - cont f/u with urology for management of suprapubic catheter. 29. Seasonal allergic rhinitis, unspecified trigger (J30.2) Ongoing management. - Continue current management with Claritin. script sent in. 30. Need for vaccination (Z23) Pneumonia vaccine is due. - Administer pneumonia vaccine, Prev-20 31. Medication management (Z79.899) Ongoing management of multiple chronic conditions. - Continue current medication regimen. - refills sent. - check Mg, B12, CBC and TSH 32. History of amputation of great toe ([facility]) (Z89.419) Recent foot infection in July required debridement and suturing; no bone involvement. - Continue podiatry follow-up . - - because of her neuropathy and vacsular issues in her lower extremities from her dibetes pt continues to benefit from wearing diabetic shoes. F/u 6 months routine Will Brannon MD I spent a total of 55 minutes on the date of the service which included preparing to see the patient, [id number] patient care, completing clinical documentation, performing a medically appropriate examination, counseling and educating the patient/family/caregiver and ordering medications, tests, or procedures. Recording using [employer] software for draft documentation of the visit was discussed with the patient/authorized sales solutions representative; all questions welcomed and answered. Patient/authorized sales solutions representative agreed to proceed [1] Social History Tobacco Use Smoking status: Never Smokeless tobacco: Never Vaping Use Vaping status: Never Used Substance Use Topics Alcohol use: Not Currently Comment: social Drug use: [facility]. MICRO - Microbiology PROCEDURE: Urine Culture [O1 *1] SOURCE: Urine, Cook Catheter BODY SITE: COLLECTED DATE/TIME: 01/07/2025 20:29 EDT RECEIVED DATE/TIME: 01/08/2025 15:28 EDT START DATE/TIME: 01/08/2025 15:29 EDT FREE TEXT SOURCE: FINAL REPORTS Final Report [] Verified Date/Time/Personnel: 01/09/2025 14:26 EDT >100,000 cfu/ml Multiple bacterial morphotypes present. Probable Contamination. Suggest recollection if clinically indicated. PRELIMINARY REPORTS Preliminary Report [] Verified Date/Time/Personnel: 01/08/2025 15:59 EDT Specimen received in lab. Order Comments O1: Urine Culture Added by Discern Performing Locations *1: This test was performed at: [address], [facility] , [facility]08-13-2025 Hospital Discharge instructions Patient Education 01/07/2025 22:16:41 Bladder Infection, Female (Adult) Bladder Infection, Female [...] swelling in the outer vaginal area (labia) [phone] [employer] [address] [place] [address]. All rights reserved. This information is not intended as a substitute for professional medical care. Always follow yourhealthcare professional's instructions. Follow Up Care 01/07/2025 19:14:03 With:WILL BRANNON MD Address: [address] [place] [address]- When:2-4 days [facility] 08-12-2025 Note Discharge Instructions Thank you for allowing [facility] to assist you with your healthcare needs. The following is importantdischarge information regarding your hospital visit. Diagnosis from Today's Visit UTI (urinary tract infection) What to Do Next Instructions from Your Care Team No qualifying data available. Post Acute Orders No qualifying data available. You Need to Schedule the Following Appointments Follow Up with WILL BRANNON MD When:Within 2-4 days Where:[address] [place] [address]- Allergies Mushrooms(Severe) Throat swelling Peanuts(Severe) Throat swelling [...] (2) times a day Duration: 10 Days Take with a probiotic Printed Prescription Unchanged apixaban (Eliquis 5 mg [...] swelling in the outer vaginal area (labia) [phone] [employer]. [address] [place] [address], [place] [id number]. All rights reserved. This information is not intended as a substitute for professional medical care. Always follow yourhealthcare professional's instructions. Additional Information VACCINATE! IT SAVES LIVES! Members of the community who have not yet received the COVID-19 vaccine and would like to receive it can visit one of [facility] vaccine clinics. There are many vaccine clinic locations within the [facility]. For locations and available times, please visit www.[email or web address].[email or web address]/. It is important to note that some COVID mobile vaccine clinics are held outdoors and may be canceled in rainy or stormy conditions. To learn more about pediatric vaccinations (ages 5-11), we invite you to visit the [facility] webpage. https://www.[email or web address]/pages/[email or web address]-[email or web address] stions.htmlTo learn more about the COVID-19 vaccine, we invite you to visit the CDC website for a list of frequently asked questions. https://www.cdc.gov/coronavirus/2019-ncov/vaccines/faq.html [facility] [employer] [facility] Patient Portal Access Instructions: Stay connected with your healthcare team and access your personal medical information anytime with the [facility] [employer] Patient Portal. If you would like a full copy of your medical records please contact the [facility] Medical Records Department Monday through Monday between 8a.m. and 4:30p.m. Please follow the directions below to access the portal: 1.Access the email account you provided upon registration to the [facility].2.Look for an invitation email from [facility].3.Open the email and access the invitation link: Accept Invitation to [facility]4.Fill in the required hartley to create [...] you will allow to register on the [facility] [employer] [employer] [facility] Patient Portal for access to your information. You can also access the [facility] [employer] [employer] [facility] Patient Portal on the [employer]. Simply click on Health Records under [employer] and then click on the [facility] logo. HOW TO SAFELY DISPOSE OF PRESCRIPTION [...] Call your local pharmacy or go to [email or web address] Defence/[email or web address] to find one close to you.3.Make use of household items: Use cat litter or old coffee grounds to dispose medications if other options arenot available. Mix your drugs with these household products, seal them in an airtight container andthrow it into the garbage. Call [facility]: [phone] to be sure your drugs can be [...] aware that I should contact my doctor. 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 Signature: Date/Time: Relationship to Patient: Witness Name/Signature: Date/Time: [facility]08-12-2025 Note* Exam Date Time Procedure Performing Provider Status 01/07/25 8:38 PM XR Abdomen AP XAVIER BRIONES MD; Auth (Verified) [id number] ORIGINAL EXAMINATION: ONE SUPINE XRAY VIEW(S) OF THE ABDOMEN 01/07/2025 8:38 pm COMPARISON: CT abdomen pelvis 12/14/2024 HISTORY: ORDERING SYSTEM PROVIDED HISTORY: Reason for Exam: Flank Pain FINDINGS: Nonspecific bowel gas pattern without evidence of obstruction. Stable bilateral calcifications correlating with probable fat infarcts on the prior CT. No acute osseous abnormality. IMPRESSION: Stable soft tissue calcifications with no definite renal stones. No evidence of bowel obstruction. Interpreted by: Xavier Briones Preliminary Report By: Xavier Briones Electronically signed By Xavier Briones Dictated Date: 01/07/2025 9:05:56 PM Prelim Date: 01/07/2025 9:12:23 PM Sign Date: 01/07/2025 9:12:23 PM Ordering Provider: ELMIRA LILIYAANJUM [facility]08-12-2025 Evaluation + Plan note Diagnostic Tests Pending * Urine Culture 01/07/25 [facility] 07-24-2025 History of Present illness Narrative* Nasrin Mroeno MA - 12/19/2024 8:31 AM EDT POPULATION HEALTH NAVIGATION OUTREACH Action/FYI Spoke to the patient and Medicare Wellness with HCC gap closure scheduled. Hemoglobin A1C pended and sent to the PCP to file along with any other lab orders the provider deems necessary. Topic Due (Y or N) Comments Annual Wellness Exam Yes PCP Follow up No Colorectal Cancer Screening No A1C Yes HTN/Controlling BP No HCC Yes Updated appointment notes No Reason for Outreach Care Gap/HCC or Scheduling Wellness Visits Care Gaps due: Medicare Annual Wellness Visit HBA1C Patient Contacted: Spoke to patient/parent/or legal guardian Patient identified by name and : Yes Care Gap/HCC/Scheduling Wellness actions taken: Patient scheduled/pended orders: Medicare Annual Wellness Visit HBA1C 12/31/2024 in [facility] with NURSE [facility] - NURSE: SPT tube change. Last 12/03/2024. KJ 01/08/2025 in [facility]UR [facility]ULT [facility] with ARACELI TORRES - 6 month follow up 01/24/2025 in [facility] with WILL BRANNON - Medicare Wellness, HCC gap closure 02/04/2025 in [facility] with JONI BARRAZA - Annual check up 05/16/2025 in [facility] with SABRA NEVAREZ - 1 yr Diabetic eye HCC related Navigation Signature: Nasrin Moreno MA December 19, 2024 8:31 AM documented in [place] [id number] Note. MICRO - Microbiology PROCEDURE: Urine Culture [O1 *1] SOURCE: Urine BODY SITE: COLLECTED DATE/TIME: 12/14/2024 16:51 EDT RECEIVED DATE/TIME: 12/15/2024 17:02 EDT START DATE/TIME: 12/15/2024 17:02 EDT FREE TEXT SOURCE: FINAL REPORTS Final Report [] Verified Date/Time/Personnel: 12/16/2024 13:58 EDT >100,000 cfu/ml Multiple bacterial morphotypes present. Probable Contamination. Suggest recollection if clinically indicated. PRELIMINARY REPORTS Preliminary Report [] Verified Date/Time/Personnel: 12/15/2024 17:59 EDT Specimen received in lab. Order Comments O1: Urine Culture Added by Discern Performing Locations *1: This test was performed at: [address], [facility] , [facility]07-19-2025 Hospital Discharge instructions Patient Education 12/14/2024 19:21:23 Bladder Infection, Female (Adult) Bladder Infection, Female [...] swelling in the outer vaginal area (labia) [phone] [employer]. [address] [place] [address]. All rights reserved. This information is not intended as a substitute for professional medical care. Always follow yourhealthcare professional's instructions. Follow Up Care 12/14/2024 16:11:35 With:WILL BRANNON MD Address: [address] [place] [id number]- When:2-4 days [facility] 07-19-2025 Emergency department Discharge summary Discharge Instructions Thank you for allowing [facility] to assist you with your healthcare needs. The following is importantdischarge information regarding your hospital visit. Diagnosis from Today's Visit UTI (urinary tract infection) What to Do Next Instructions from Your Care Team No qualifying data available. Post Acute Orders No qualifying data available. You Need to Schedule the Following Appointments Follow Up with WILL BRANNON MD When:Within 2-4 days Where:[address] [place] [id number]- Allergies Mushrooms(Severe) Throat swelling Peanuts(Severe) Throat swelling [...] a day Duration: 14 Days Take with a probiotic Printed Prescription Unchanged apixaban (Eliquis 5 mg [...] swelling in the outer vaginal area (labia) [id number] [employer] [address] [place] [address]. All rights reserved. This information is not intended as a substitute for professional medical care. Always follow yourhealthcare professional's instructions. Additional Information VACCINATE! IT SAVES LIVES! Members of the community who have not yet received the COVID-19 vaccine and would like to receive it can visit one of [facility] vaccine clinics. There are many vaccine clinic locations within the [facility]. For locations and available times, please visit www.[email or web address].[place].gov/. It is important to note that some COVID mobile vaccine clinics are held outdoors and may be canceled in rainy or stormy conditions. To learn more about pediatric vaccinations (ages 5-11), we invite you to visit the [facility] webpage. https://www.[email or web address]/pages/8981-[email or web address]-Eomesswlpc-Vsrfd-[email or web address] [email or web address] learn more about the COVID-19 vaccine, we invite you to visit the CDC website for a list of frequently asked questions. https://www.cdc.gov/coronavirus/2019-ncov/vaccines/faq.html [facility] [employer] [facility] Patient Portal Access Instructions: Stay connected with your healthcare team and access your personal medical information anytime with the [facility] Patient Portal. If you would like a full copy of your medical records please contact the [facility] Medical Records Department Monday through Monday between 8a.m. and 4:30p.m. Please follow the directions below to access the portal: 1.Access the email account you provided upon registration to the hospital.2.Look for an invitation email from [facility].3.Open the email and access the invitation link: Accept Invitation to [facility]4.Fill in the required hartley to create your account. Sign into [email or web address] with your username and password that you [...] you will allow to register on the [facility] Patient Portal for access to your information. You can also access the [facility] Patient Portal on the [employer]logos. Simply click on Health Records under [employer] and then click on the [employer] logo. HOW TO SAFELY DISPOSE OF PRESCRIPTION [...] Call your local pharmacy or go to http://SchoolChapters.Art of Defence/6X4Ot6n to find one close to you.3.Make use of household items: Use cat litter or old coffee grounds to dispose medications if other options arenot available. Mix your drugs with these household products, seal them in an airtight container andthrow it into the garbage. Call [facility]: [phone] to be sure your drugs can be [...] aware that I should contact my doctor. 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 Signature: Date/Time: Relationship to Patient: Witness Name/Signature: Date/Time: [facility] [facility]07-19-2025 Note* Exam Date Time Procedure Performing Provider Status 12/14/24 5:[address] Abd/Pelvis w/ IV Contrast Only XAVIER BRIONES MD; Auth (Verified) [id number] ORIGINAL EXAMINATION: CT OF THE ABDOMEN AND PELVIS WITH CONTRAST 12/14/2024 5:53 pm TECHNIQUE: CT of the abdomen and pelvis was performed with the administration of intravenous contrast. Multiplanar reformatted images are provided for review. Automated exposure control, iterative reconstruction, and/or weight based adjustment of the mA/kV was utilized to reduce the radiation dose to as low as reasonably achievable. COMPARISON: CT abdomen pelvis 06/02/2024 HISTORY: ORDERING SYSTEM PROVIDED HISTORY: Reason for Exam: pain FINDINGS: The heart is normal size. No pericardial thickening or effusion. No acute abnormality within the visualized lower lungs. Small fat containing right Bochdalek's hernia. The aorta is nonaneurysmal with no significant atherosclerosis. No adenopathy within the abdomen or pelvis. The liver, spleen, pancreas, and bilateral adrenal glands are unremarkable. Cholecystectomy. Multifocal cortical scarring with atrophy of the right kidney, similar to prior. No hydronephrosis. Stable right lower pole nephrolithiasis. Suprapubic Coko catheter within the bladder. There is stable bladder wall thickening. Uterus is unremarkable. No adnexal lesion. No pneumoperitoneum or free fluid. Stable left colostomy with large peristomal hernia containing multiple loops of colon small bowel. The os of the hernia measures up to 6.4 cm. There is no evidence of obstruction or inflammation. Colonic anastomosis within pelvis. Stable of umbilical hernia containing the appendix. Mesh sheath related to attempted hernia repair. No acute osseous abnormality. Prior laminectomy from L3 through S1. IMPRESSION: No acute abnormality within the abdomen or pelvis. Left colostomy with stable large peristomal hernia containing loops of normal appearing small bowel and colon. No evidence of obstruction or inflammation. Stable umbilical hernia containing the appendix. Nonobstructive right lower pole nephrolithiasis. Stable bladder wall thickening in the setting of a suprapubic catheter. I have personally reviewed the images of this examination and agree with the resident's findings and interpretation. Interpreted by: Xavier Briones Preliminary Report By: Anrde Mccain Electronically signed By Xavier Briones Dictated Date: 12/14/2024 5:56:07 PM Prelim Date: 12/14/2024 6:08:52 PM Sign Date: 12/14/2024 6:17:05 PM Ordering Provider: ELMIRA FOSS [facility]07-19-2025 Evaluation + Plan note Diagnostic Tests Pending * Urine Culture 12/14/24 [facility] 07-11-2025 Telephone encounter Note* Telephone Encounter - Naty Haddad LPN - 12/06/2024 11:15 AM EDT Faxed orders to DME per patient request. Naty Haddad LPN [facility]07-11-2025 Miscellaneous Notes* Telephone Encounter - Naty Haddad LPN - 12/06/2024 11:15 AM EDT Faxed orders to DME per patient request. Naty Haddad LPN documented in this encounterFostoria [facility]07-[facility] History of Present illness Narrative* Cory Box PA-C - 12/03/2024 3:53 PM EDT Images from the original note were not included. [facility] PATIENT CLINIC NOTE (F) Some elements copied from his previous note, which have been updated where appropriate, and all reflect current medical decision making from date of this visit. Note was generated by [employer] and edited as appropriate SERVICE DATE: December 03, 2024 NAME: Debby Bailon GENDER: female CHIEF COMPLAINT: The patient is a 44-year-old female with a history of diabetes mellitus, presenting for catheter supplies and follow-up on urostomy and back surgery plans. HISTORY OF PRESENT ILLNESS: The patient is a 44-year-old female with a history of diabetes mellitus, presenting for catheter supplies and follow-up on urostomy and back surgery plans. Catheter Management: - Requires leg bag, drainage bags, and irrigation supplies. - Last seen by Dr. Sears approximately one year ago. Urostomy: - Dr. Sears recommended a urostomy once A1c levels are optimized. - A1c is reportedly improving. UTI: - Recently completed a course of antibiotics for a UTI. Back Surgery: - Needs back surgery again. > We discussed increasing daily water intake to 64-84 oz 7a -7p and try to reduce bladder irritants, caffeine, alcohol and acid foods and drink. Instructed the patient to CALL office to get a URINE CULTURE order placed if having UTI symptoms, instead of going to Urgent Care or ER As long as I have seen the patient within 1 year, understanding NO antibiotics will be given until the culture is final If patient has a FEVER > 100.1, we will send her to ER that is not common for uncomplicated UTI LABS: Glucose (mg/dL) Date Value 08/29/2024 236 03/23/2021 227 Potassium (mmol/L) Date Value 08/29/2024 4.2 03/23/2021 4.6 Sodium (mmol/L) Date Value 08/29/2024 140 04/07/2021 134 Chloride (mmol/L) Date Value 08/29/2024 104 03/23/2021 104 CO2 (mmol/L) Date Value 08/29/2024 25 03/23/2021 19 Creatinine (mg/dL) Date Value 08/29/2024 0.70 03/23/2021 0.60 BUN (mg/dL) Date Value 08/29/2024 10 03/23/2021 12 Anion Gap (mmol/L) Date Value 08/29/2024 11 03/23/2021 12 Calcium (mg/dL) Date Value 03/23/2021 9.4 Calcium, Total (mg/dL) Date Value 08/29/2024 9.1 Protein, Total (g/dL) Date Value 08/29/2024 6.7 03/23/2021 7.4 Albumin (g/dL) Date Value 08/29/2024 3.5 03/23/2021 4.2 Bilirubin, Total (mg/dL) Date Value 08/29/2024 <0.2 03/23/2021 0.3 Alkaline Phosphatase (U/L) Date Value 08/29/2024 108 03/23/2021 74 AST (U/L) Date Value 08/29/2024 43 03/23/2021 30 ALT (U/L) Date Value 08/29/2024 26 03/23/2021 42 Creatinine Date Value Ref Range Status 08/29/2024 0.70 0.58 - 0.96 mg/dL Final 04/29/2024 0.73 0.58 - 0.96 mg/dL Final 10/02/2023 0.82 0.58 - 0.96 mg/dL Final MEDICATIONS: Urinary Bag (UROSTOMY NIGHT BAG) misc Urinary Night Bag. Use as directed with suprapublic catheter. pregabalin (LYRICA) 75 mg capsule Take 1 [...] Take 1 capsule by mouth once daily. insulin aspart, niacinamide, (FIASP FLEXTOUCH U-100 INSULIN) 100 unit/mL (3 mL) pen Inject 20 unitswith meals (three times daily) PLUS SS#2 (2 units for every 50 over 150 PRE MEAL blood sugar) TDD~90 units daily insulin glargine (LANTUS SOLOSTAR U-100 INSULIN) 100 unit/mL (3 mL) Inject 40 units once daily Blood-Glucose Meter,Continuous (FREESTYLE ROSA 3 READER) [facility] DISPENSE ONE READER KIT. USE FOR CONTINUOUS GLUCOSE MONITORING. MULTIPLE INSULIN INJECTIONS. E11.9 loratadine (CLARITIN) 10 mg tablet Take 1 [...] by mouth once daily. Per Dr. Ermias aSlomon Insulin [place], Disposable, (COMFORT EZ PEN NEEDLES) 29 gauge [...] once daily. Rinse mouth after use. Insulin [place], Disposable, 32 gauge x 5/16 ndle Use once daily with Victoza COMPOUNDED PRESCRIPTION Stoma catheter tube. DX: Qo5.4 and K59.2 Drainage Bag [facility] 1 each every 2 weeks. sodium chloride irrig solution (NACL 0.9% IRRIGATION BOTTLE) To use for catheter irrigation daily or as needed. Urinary Bag (URINARY LEG BAG) kit Use as directed with suprapublic catheter. irrigation set (BARD IRRIGATION TRAY MISC) once every month. divalproex DR (DEPAKOTE) 500 mg EC tablet take 2 at bed for 5 days then 1 at bed for 5 days and stop. Blood-Glucose Sensor (FREESTYLE ROSA 3 SENSOR) tara CHANGE SENSOR EVERY 14 DAYS, USE FOR CONTINUOUS GLUCOSE MONITORING. MULTIPLE INSULIN INJECTIONS. (Patient not taking: Reported on 12/03/2024) PAST MEDICAL HISTORY: PAST MEDICAL HISTORY Diagnosis Date Amputation of left great toe 06/25/2020 Arthritis started age 19 Bilateral leg edema 07/16/2018 Cervical radiculopathy 05/02/2013 Chronic pain 02/12/[address] ([facility]) 09/30/2021 Constipation due to outlet dysfunction 10/07/2021 Cyst of ovary 11/28/2011 Diabetes mellitus with peripheral vascular disease ([facility]) 03/29/2023 Diabetic eye exam ([facility]) 06/17/2016 Last done: 01/25/2017 Diabetic eye exam ([facility]) 06/17/2016 Last done: 03/08/2019 DJD (degenerative joint disease), thoracic DM (diabetes mellitus), secondary, uncontrolled, 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 Elevated LFTs 03/11/2020 Essential hypertension 02/21/2019 Fatty liver 03/11/2020 US 10/2019 History of amputation of left great toe (HCC) 06/25/[address] 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 Will monitor. Lipomeningocele, sacral level 09/12/2013 Lumbago 02/12/2015 Major depressive disorder, recurrent, mild 03/29/2023 Medicare annual wellness visit, subsequent 02/28/2018 last done: 02/28/2018 Migraine without aura and without status migrainosus, not intractable 10/18/2016 Miscarriage ([facility]) Mixed hyperlipidemia 02/28/2018 Moderate recurrent major depression ([facility]) 09/28/2023 Muscle weakness of left lower extremity 08/07/2013 Neck pain 05/02/2013 Neurogenic bladder 02/12/2015 Neurogenic bowel 01/06/2016 Neuropathy 02/12/2015 post back surgery with secondary infection. Seeing Dr. Gregg Non-compliance 09/02/2022 Even stated in endocrine note from 09/01/2022 Numbness and tingling of left arm and leg 08/07/2013 Obesity, Class II, BMI 35-39.9 02/12/2015 Panic attacks Paroxysmal SVT (supraventricular tachycardia) ([facility]) 07/03/2017 Per 48 Hr event monitor 06/30/2017 Primary insomnia 02/17/2016 S/P hernia repair 12/11/2017 Spina bifida (HCC) 01/06/2016 Spinal stenosis of cervical region 06/26/2023 Thyroid cyst 01/01/2018 Complex right sided cysts. US 12/2017, biopsy per Dr. Josue 01/23/2018 benign. Repeat US in a year. Type 2 diabetes mellitus with albuminuria ([facility]) 10/18/2016 Type 2 diabetes mellitus with proteinuria ([facility]) 02/19/2016 Ventral hernia without obstruction or gangrene Weakness of both upper extremities 08/07/2013 Chronic REVIEW OF SYSTEMS: PHYSICAL EXAMINATION: Blood pressure 122/84, pulse 98, temperature 36.5 C (97.7 F), temperature source Temporal, resp. rate 14, height 154.9 cm (5' 1), weight 98.9 kg (218 lb), last menstrual period 11/26/2024, SpO2 98%. General: Alert & oriented, no acute distress Skin: Normal HEENT: Pupils equal, round. Oral cavity, oropharynx clear Neck: Supple, no mass Breast: Deferred Respiratory: Clear to auscultation, bilaterally Cardiovascular: Regular rate and rhythm, no murmurs, rubs, or gallops Abdomen: Soft, non-tender, non-distended, no masses palpable, no hepatosplenomegaly, normal bowel sounds Genitourinary: Deferred MSK: Back is non-tender Extremities: No clubbing, cyanosis, or edema PROBLEM LIST REVIEW: Yes LABS: Results for orders placed or performed in visit on 08/29/24 COMPREHENSIVE METABOLIC PANEL Result Value Ref Range Protein, Total 6.7 6.3 - 8.0 g/dL Albumin 3.5 (L) 3.9 - 4.9 g/dL Calcium, Total 9.1 8.5 - 10.2 mg/dL Bilirubin, Total <0.2 (L) 0.2 - 1.3 mg/dL Alkaline Phosphatase 108 34 - 123 U/L AST 43 (H) 13 - 35 U/L ALT 26 7 - 38 U/L Glucose 236 (H) 74 - 99 mg/dL BUN 10 7 - 21 mg/dL Creatinine 0.70 0.58 - 0.96 mg/dL Sodium 140 136 - 144 mmol/L Potassium 4.2 3.7 - 5.1 mmol/L Chloride 104 98 - 107 mmol/L CO2 25 22 - 30 mmol/L Anion Gap 11 8 - 15 mmol/L Estimated Glomerular Filtration Rate 111 >=60 mL/min/1.73m LIPID PANEL, NONFASTING Result Value Ref Range Total Cholesterol, Nonfasting 84 <200 mg/dL Triglycerides, Nonfasting 213 (H) <150 mg/dL HDL Cholesterol, Nonfasting 23 (L) >39 mg/dL LDL Cholesterol Calculated, Nonfasting 18 <100 mg/dL Non HDL Cholesterol, Nonfasting 61 <130 mg/dL VLDL Cholesterol, Nonfasting 43 (H) <30 mg/dL Total Chol/HDL Ratio, Nonfasting 3.65 <5.10 mg/dL LDL/HDL Ratio, Nonfasting 0.78 <2.54 mg/dL ALBUMIN/CREATININE RATIO, URINE Result Value Ref Range Creatinine, Ur Random (UCRR) 59.8 20.0 - 300.0 mg/dL Albumin, Urine Random 91.3 mg/L Albumin/Creat Ratio 153 (H) <30 mg/g HEMOGLOBIN A1C Result Value Ref Range Hemoglobin A1C 11.1 (H) 4.3 - 5.6 % Estimated Average Glucose 272 mg/dL *Note: Due to a large number of results and/or encounters for the requested time period, some results have not been displayed. A complete set of results can be found in Results Review. ASSESSMENT/PLAN: 1. Neurogenic bladder (N31.9) 2. Suprapubic catheter (HCC) (Z93.59) - Managed with leg bag and drainage bags; refilled supplies. No current infections; recently completed antibiotic treatment for a urinary tract infection. Discussed potential urostomy with Dr. Sears contingent upon improved glycemic control. Continue current catheter management; monitor for signs of infection. 3. Type 2 diabetes mellitus without complication, unspecified whether half-way insulin use (HCC) (E11.9) - Hemoglobin A1c improving. Continue current diabetes management regimen. Follow-up with Dr. Sears for potential urostomy once glycemic control is optimized. Chronic stable, well controlled > 1 year Appt w/ B. JENIFFER Box MT, PA-C for annual follow-up and refills. Patient Instructions (AVS) - printed for patient - Refills for your leg drainage bags, catheter supplies, and irrigation supplies have been sent; continue using them as before and contact us when you need more. - Maintain your current catheter care routine with these supplies. - If you encounter any problems or concerns with your catheter or supplies, please let us know. - Continue working with Dr. Sears to lower your A1c; once it reaches her target, she will discuss adding a urostomy. - No follow-up appointment is scheduled--call the office if you need assistance or have new issues. JENIFFER Gaona MT, PA-C * Naty Haddad LPN - 12/03/2024 3:33 PM EDT CC Supra pubic catheter in Place HPI: Debby Bailon is a 44 year old female. The patient is here now for a supra pubic catheter change with diagnosis neurogenic bladder. Procedure: Performed a catheter change. The indwelling supra pubic cook size 16 Fr was removed with no resistance- catheter tip intact Inserted 16 Fr catheter using aseptic technique. Irrigated with 60 mL 0.9%sodium chloride. Approximately 60 mLslight yellow return noted throughout. Bulb inflated with 10 mLs prefilled syringes- sterile water. T-Sponge applied to SPT base per patient preference attached todrainage bag. The patient tolerated the procedure well. Patient does not like tubing secured. Assessment/Plan: Successful catheter change. Return for catheter changes as planned. Annual appointment with provider. Naty Haddad LPN documented in this encounterFostoria City [facility]06-25-[facility]25 History of Present illness Narrative* Ashley Mann MA - 11/20/2024 10:10 AM EDT Scan on 11/20/2024 7:44 AM by Provider, Melanie, [place]: [facility] documented in this encounterFostoria City Hospital06-24-2025 History of Present illness Narrative* Nasrin Moreno MA - 11/19/2024 8:23 AM EDT POPULATION HEALTH NAVIGATION OUTREACH Action/FYI Contacted patient [...] 19, 2024 8:23 AM documented in this encounterFostoria City Hospital06-17-2025 Telephone encounter Note * Telephone Encounter - Naty Haddad LPN - 2024 8:03 AM EDT Called patient. No answer- left message to check her MyChart. Naty Haddad LPN [facility]06-17-2025 Miscellaneous Notes* Telephone Encounter - Naty Haddad LPN - 2024 8:03 AM EDT Called patient. No answer- left message to check her MyChart. Naty Haddad LPN documented in this encounterFostoria City Hospital05-19-2025 History of Present illness Narrative* Nasrin Moreno MA - 10/14/2024 8:50 AM EDT POPULATION HEALTH NAVIGATION OUTREACH Action/FYI Contacted patient [...] 14, 2024 8:50 AM documented in this encounterFostoria City Hospital05-13-2025 History of Present illness Narrative* Naty Haddad LPN - 10/08/2024 3:41 PM EDT CC Supra pubic catheter in Place HPI: Debby Alvarenga Uvaldo is a 43 year old female. The patient is here now for a supra pubic catheter change with diagnosis neurogenic bladder. Procedure: Performed a catheter change. The indwelling supra pubic cook size 16 Fr (off white/tellow colored)was removed with no resistance- catheter tip intact Inserted 16 Fr catheter using aseptic technique. Irrigated with 60 mL 0.9% sodium chloride. Approximately 60 mLslight yellow return noted throughout. Bulb inflated with 10 mLs prefilled syringes- sterile water. T-Sponge applied to SPT base per patient preference attached to drainage bag. The patient tolerated the procedure well. Patient does notlike tubing secured. Assessment/Plan: Successful catheter change. Return for catheter changes as planned. Naty Haddad LPN documented in this encounterFostoria City Hospital03-21-2025 Discharge summary Author Quynh Boyer [facility] Note Date/Time August 16, 2024 2:5 7pm [facility] Medical Records Department [address] [place] [address] Transfer to [facility] MR#: [id number] Acct: [id number] Name: UVALDODEBBY Rep #:[id number] : 1980 43 From: Quynh Boyer DO PCP: Dr. Will Brannon MD Status:ADM IN Certification of patient admission REQUIRED AT TIME OF ADMISSION. I CERTIFY THAT POST-HOSPITAL ECF SERVICES ARE REQUIRED TO BE GIVEN ON AN IN-PATIENT BASIS BECAUSE OF THE ABOVE NAMED PATIENT'S NEED FOR [facility] CARE ON A CONTINUING BASIS FOR THE CONDITION(S) FOR WHICH HE/SHE WAS RECEIVING IN-PATIENT HOSPITAL SERVICES PRIOR TO HIS/HER TRANSFER TO THE F. 08/16/24 1457<Electronically signed by Quynh Boyer DO> Diet Diet [...] the left foot 08/16/2024 #3 type 2 zanfossj-inirprycisfz-trygmoe's blood sugars will be monitored, sliding scale [...] Brannon Consulting Providers: Ramana Rose; Bev Ngo; Mc Gonzalez Discharge Orders/Prescriptions Prescriptions: New cholecalciferol (vitamin [...] Will Brannon MD [Primary Care Provider] - Mc Gonzalez DPM [Med Staff - Active Staff] - In 1 Week (Call office for appointment) Disposition Disposition (needs filled in before D/C Order can be placed): [facility] Facility (2) Type 2 diabetes mellitus with foot ulcer Qualifiers: Diabetes mellitus half-way insulin use: with long term care administrator use Qualified Code(s): E11.621 - Type 2 diabetes mellitus with foot ulcer; L97.509 - Non-pressure chronic ulcer of other part of unspecified foot with unspecified severity; Z79.4 - 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 08/16/24 9125 <Electronically signed by Quynh Boyer DO> Cosigner Signature (if applicable): CC: ERIC Gonzalez; Dr. Ramana oRse DO; Dr. Will Brannon MD; Dr. Bev Ngo MD ~ [facility] Work Phone: 1(197) 430-117803-21-2025 History of Present illness Narrative* Josesito Verdin LPN - 08/16/2024 2:22 PM EDT Scan on 08/16/2024 11:48 AM by Provider, [place] Navarro: Orthopedics documented in this encounterFostoria City Hospital03-21-2025 Consult note Author Luis Miguel Boateng [facility] Note Date/Time August 16, 2024 11: 26am [facility] Medical Records Department [address] [place] [address] Anesthesia Postop Eval I 08/16/241124 MR#: [id number] Acct: [id number] Name: DEBBY BAILON Rep #:[id number] : 1980 43 From: Luis Miguel Boateng CRNA PCP: Dr. Will Brannon MD Status:ADM IN Y Race: C Location: [place] [address] Anesthesia: Postop Eval I Current Vital Signs [...] CRNA Cosigner Signature: Date CC: ~ Signed [facility] Work Phone: 1(461) 529-533703-21-2025 Progress note Author Mc Gonzalez [facility] Note Date/Time August 16, 2024 11: 23am [facility] Medical Records Department [address] [place] [address] Progress Note - Surgery 08/16/24 0650 MR#: [id number] Acct: [id number] Name: DEBBY BAILON Rep #:[id number] : 1980 43 From: Mc Smith PM PCP: Dr. Will Brannon MD Status:ADM IN Location: MS3 [id number] Subjective Subjective Patient was seen at bedside [...] mellitus with foot ulcer: QUALIFIERS: Diabetes mellitus long term care administrator insulin use: with long term care administrator use Qualified Code(s): E11.621 - Type 2 diabetes mellitus with foot ulcer;L97.509 - Non- pressure chronic ulcer of other part of unspecified foot with unspecified severity; Z79.4 - 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 (3) Cutaneous abscess of left foot: 08/16/24 1123 <Electronically signed by Mc Gonzalez DPM> Cosigner Signature (if applicable): CC: ~ Signed [facility] Work Phone: 1(597) 525-390503-21-2025 Progress note Author Quynh Boyer [facility] Note Date/Time August 16, 2024 6:3 7pm [facility] Medical Records Department [address] [place] [address] Progress Note - Hospitalist 08/16/24 1021 MR#: [id number] Acct: [id number] Name: DEBBY BAILON Rep #:[id number] : 1980 43 From: Quynh Boyer DO PCP: Dr. Will Brannon MD Status:ADM IN [facility] I talked to infectious diseases today, they stated that the patient could go to the intermediate today after her surgery, she would need to continue Zyvox 600 mg twice daily for 1 week and Flagyl 500 mg 3 times daily for 1 week. 08/16/24 1021 <Electronically signed by Quynh Boyer DO> Cosigner Signature (if applicable): CC: ~ Signed [facility] Work Phone: 1(829) 386-120103-21-2025 Procedure [facility] 08-16-2024 Consult note Author Isaías Huitron [facility] Note Date/Time August 16, 2024 8:4 4am [facility] Medical Records Department [address] [place] [address] Pre-Anesthesia Evaluation 08/16/24 0842 MR#: [id number] Acct: [id number] Name: DEBBY BAILON Rep #:[id number] : 1980 43 From: Isaías domingo MD PCP: Dr. Will Brannon MD Status:ADM IN Y Race: C Location: [place] [address] ASA Classification* ASA Classification ASA Classification: 3 [...] heel abscess. Anesthesia History Anesthesia History - composition roll maker and cutter: Anesthesia History - composition roll maker and cutter Hx Hospitalization No 01/10/22 13:40 Any Problems [...] take am of surgery PONV PONV - composition roll maker and cutter: PONV - composition roll maker and cutter Female HX of Motion Sickness HX of N/V After Surgery Non-Smoker Duration of Surgery greater than 60 minutes Number of Risk Factors PONV Score Height & Weight Height & Weight: Anesthesia: Height & Weight Height 5 ft 1 in 08/16/24 07:55 Weight: 107.2 kg 08/16/24 07:55 Body Mass Index (BMI) 44.6 08/16/24 07:55 Respiratory Assessment Respiratory Assessment - composition roll maker and cutter: Respiratory Tract Infection Hx - composition roll maker and cutter Hx Respiratory Tract Infection No 08/12/24 14:58 STOP Sleep Apnea STOP Sleep Apnea - composition roll maker and cutter: STOP Sleep Apnea - composition roll maker and cutter Hx Hypertension Yes 08/13/24 15:47 Hx Sleep [...] Tobacco Use History Tobacco Use History - composition roll maker and cutter: Tobacco Use History - composition roll maker and cutter Tobacco Use Non-smoker 01/10/22 13:40 Smoking Status Never smoker 08/11/24 23:02 Hx Tobacco Use No 08/11/24 23:02 Years Smoking Packs Smoked per Day Smoking Cessation Date was within the last 15 years Hx Smoking Cessation Date Hx Smoking Cessation Counseling Hematologic Medial History Hematologic Hx - composition roll maker and cutter: 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 Hx of Blood Transfusion No 08/11/24 23:02 [...] confused, unrespo /Reproduction History /Reproductive History - composition roll maker and cutter: /Reproductive Hx- composition roll maker and cutter Hx Now No 08/12/24 14:58 Gestational Age [...] 09:35 08/16/24 05:47 Chloride IV Infused Q8 MIREYA Infusion Insulin Glargine 30 unit 08/12/24 00:11 08/15/24 21:47 Insulin Glargine-Yfgn 100 Unit/Ml Pen SC 15 unit QHS MIREYA Administration Insulin Human Lispro 12 unit 08/12/24 08:00 08/16/24 07:27 Insulin Lispro 100 Unit/Ml Insuln.Pen SC Not Given TIDCM [facility] Insulin Human Lispro 0 unit 08/12/24 08:00 08/16/24 07:28 Insulin Lispro 100 Unit/Ml Insuln.Pen SC Not Given [facility]IDCM [facility] Protocol Linezolid 600 mg 08/15/24 10:00 08/16/24 07:34 Linezolid 600 Mg Tablet PO Not Given BID [facility] Loratadine 10 mg 08/12/24 10:00 08/16/24 07:30 Loratadine 10 Mg Tablet PO Not Given DAILY [facility] Magnesium Hydroxide 30 ml 08/12/24 00:11 Magnesium Hydroxide 30 Ml Udc PO DAILY PRN PRN Constipation Melatonin 3 mg 08/12/24 00:11 Melatonin 3 Mg Tablet PO QHS PRN PRN INSOMNIA Metronidazole 500 mg 08/12/24 09:45 08/16/24 04:14 Metronidazole 500 Mg Tablet PO 500 mg TID MIRE[facility] Administration Morphine Sulfate 2 mg 08/12/24 00:11 [...] 20 Mg Tablet PO Not Given DAILY [facility] Pregabalin 75 mg 08/12/24 10:00 08/16/24 07:41 Pregabalin 75 Mg Capsule PO Not Given BID [facility] Sodium Chloride 10 - 40 ml 08/12/24 [...] Mg) Oral Capsule PO Not Given DAILY [facility] PFSH Medical History Type 2 diabetes mellitus [...] by Isaías cantu MD> Date _ Isaías Huitron MD Cosigner Signature: Date CC: ~ Signed [facility] Work Phone: [phone] Progress note Author Mc Gonzalez [facility] Note Date/Time August 15, 2024 3:4 2pm [facility] Medical Records Department [address] [place] [address] Progress Note - Surgery 08/13/24 0743 MR#: [id number] Acct: [id number] Name: DEBBY BAILON Rep #:[id number] : 1980 43 From: Mc Smith PM PCP: Dr. Will Brannon MD Status:ADM IN Location: MS3 [id number] Subjective Subjective Ms. Bailon 43-year-old female status [...] 100 Output Total 2450 / 3950 1999 Balance 1050 / 1050 1300 / [...] evident. No evidence of osteomyelitis. Reading Location: [address] Physical Exam Narrative Vascular: DP and [...] mellitus with foot ulcer: QUALIFIERS: Diabetes mellitus half-way insulin use: with half-way use Qualified Code(s): E11.621 - Type 2 diabetes mellitus with foot ulcer;L97.509 - Non- pressure chronic ulcer of other part of unspecified foot with unspecified severity; Z79.4 - 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 08/15/24 1542 <Electronically signed by Mc Gonzalez DPM> Cosigner Signature (if applicable): CC: ~ Signed [facility] Work Phone: [phone] 560-570403-20-2025 Progress note Author Quynh Boyer [facility] Note Date/Time August 15, 2024 8:2 0am [facility] Medical Records Department [address] [place] [address] Progress Note - Hospitalist 08/15/24 0815 MR#: [id number] Acct: [id number] Name: UVALDODEBBY L Rep #:[id number] : 1980 43 From: Quynh Boyer DO PCP: Dr. Will Brannon MD Status:ADM IN Location: MS3 [id number] Reason for Visit Reason for Visit: Diagnoses [...] Body mass index [BMI] 40.0-44.9, adult (08/11/24) 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 (08/11/24) Patient's noncompliance [...] mellitus with foot ulcer: QUALIFIERS: Diabetes mellitus long term care administrator insulin use: with half-way use Qualified Code(s): E11.621 - Type 2 diabetes mellitus with foot ulcer; L97.509 - Non- pressure chronic ulcer of other part of unspecified foot with unspecified severity; Z79.4 - 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 PLAN: Plan 1. Sepsis secondary to left lower extremity cellulitis/left heel abscess-patient will remain on her current antibiotic coverage per infectious diseases-Flagyl, Zyvox, and cefepime #2 left heel abscess-patient is being seen by podiatry and may require further surgery on the left foot 08/16/2024 #3 type 2 hayanepx-fxgxzirwplpo-ovwewux's blood sugars will be monitored, sliding scale [...] 35 minutes Charges/Coding Visit Charges Inpatient E&M: 30488 Subs Hosp L2 08/15/24 0820 <Electronically signed by Quynh Tereletsky DO> Cosigner Signature (if applicable): CC: ~ Signed [facility] Work Phone: [phone] 405-970903-19-2025 Progress note Author Bev Ngo [facility] Note Date/Time August 14, 2024 4:2 8pm [facility] Medical Records Department [address] [place] [address] Progress Note - Infect Disease 08/14/24 1626 MR#: [id number] Acct: [id number] Name: DEBBY BAILON Rep #:[id number] : 1980 43 From: Bev newton MD PCP: Dr. Will Brannon MD Status:ADM IN Location: [place] [address] Physical Exam Narrative Feeling better, no fever, [...] Diabetes mellitus type: type 2 Diabetes mellitus long term care administrator insulin use: with long term care administrator use Qualified Code(s): E11.42 - Type 2 diabetes mellitus with diabetic polyneuropathy; Z79.4 - nursing home (current) use of insulin 08/14/24 1627 <Electronically signed by Bev Ngo MD> Cosigner Signature (if applicable): CC: ~ Signed ADDENDUM by Dr. Bev Ngo MD on 08/14/24 at 1628 Addendum correction, linezolid, not vanc 08/14/24 1628<Electronically signed by Bev Ngo MD> Cosigner Signature (if applicable): cc: ~* Signed [facility] Work Phone: [phone]) 913-347503-19-2025 Progress note Author Quynh Boyer [facility] Note Date/Time August 14, 2024 1:0 0pm [facility] Medical Records Department [address] [place] [address] Progress Note - Hospitalist 08/14/24 1259 MR#: [id number] Acct: [id number] Name: DEBBY BAILON Rep #:[id number] : 1980 43 From: Quynh Boyer DO PCP: Dr. Will Brannon MD Status:ADM IN Location: [place] [address] Reason for Visit Reason for Visit: Diagnoses [...] Body mass index [BMI] 40.0-44.9, adult (08/11/24) 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 (08/11/24) Patient's noncompliance [...] mellitus with foot ulcer: QUALIFIERS: Diabetes mellitus long term care administrator insulin use: with long term care administrator use Qualified Code(s): E11.621 - Type 2 diabetes mellitus with foot ulcer; L97.509 - Non- pressure chronic ulcer of other part of unspecified foot with unspecified severity; Z79.4 - 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 PLAN: Plan 1. Sepsis secondary to left lower extremity cellulitis/left heel abscess-patient will remain on her current antibiotic coverage per infectious diseases-Flagyl and cefepime #2 left heel abscess-patient is being seen by podiatry and may require further surgery on the left foot this week #3 type 2 ncyaesjb-pijopfbchseb-aafztgj's blood sugars will be monitored, sliding scale [...] 35 minutes Charges/Coding Visit Charges Inpatient E&M: 12369 Subs Hosp L2 08/14/24 1300 <Electronically signed by Quynh Boyer DO> Cosigner Signature (if applicable): CC: ~ Signed [facility] Work Phone: [phone] History of Present illness Narrative* Josesito Verdin LPN - 08/14/2024 7:13 AM EDT Scan on 08/13/2024 10:26 AM by Provider, External, [place]: Consultation - [facility] Progress note Author Quynh Boyer [facility] Note Date/Time August 13, 2024 6:1 7pm [facility] Medical Records Department [address] [place] [address] Progress Note - Hospitalist 08/13/24 1810 MR#: [id number] Acct: [id number] Name: DEBBY BAILON Rep #:[id number] : 1980 43 From: Quynh Boyer DO PCP: Dr. Will Brannon MD Status:ADM IN Location: [place] [address] Reason for Visit Reason for Visit: Diagnoses [...] Body mass index [BMI] 40.0-44.9, adult (08/11/24) nursing home (current) use of insulin (08/11/24) Patient's noncompliance [...] mellitus with foot ulcer: QUALIFIERS: Diabetes mellitus long term care administrator insulin use: with half-way use Qualified Code(s): E11.621 - Type 2 diabetes mellitus with foot ulcer; L97.509 - Non- pressure chronic ulcer of other part of unspecified foot with unspecified severity; Z79.4 - nursing home (current) use of insulin PLAN: Plan 1. Sepsis secondary to left lower extremity cellulitis/left heel abscess-patient will remain on her current antibiotic coverage per infectious diseases-Flagyl and cefepime #2 left heel abscess-patient is being seen by podiatry and may require further surgery on the left foot #3 type 2 paaaiskl-elgehgsaiatj-ryrlgrh's blood sugars will be monitored, sliding scale [...] 35 minutes Charges/Coding Visit Charges Inpatient E&M: 69633 Subs Hosp L2 08/13/24 5727 <Electronically signed by Quynh Tereletsky DO> Cosigner Signature (if applicable): CC: ~ Signed [facility] Work Phone: [phone]) 781-246303-18-2025 Consult note Author eBv Ngo [facility] Note Date/Time August 13, 2024 10: 17am [facility] Medical Records Department [address] [place] [address] Consultation - Infectious Dx 08/13/24 1012 MR#: [id number] Acct: [id number] Name: DEBBY BAILON Rep #:[id number] : 1980 43 From: Bev newton MD PCP: Dr. Will Brannon MD Status:ADM IN Location: [place] [address] Assessment & Plan Assessment/Plan (1) Abscess of left heel: PLAN: admitted on linezolid and clinda. Now s/p OR 08/12/[address] Gonzalez for I&D of abscess. On vanc/cefepime/flagyl, feeling better, will continue. Wound cx pending. Will follow, thank you, d/w primary team (2) Diabetes mellitus with diabetic polyneuropathy: QUALIFIERS: Diabetes mellitus type: type 2 Diabetes mellitus [facility] insulin use: with half-way use Qualified Code(s): E11.42 - Type 2 diabetes mellitus with diabetic polyneuropathy; Z79.4 - 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 HPI Consult Data Date of Consult: 08/13/24 HPI Narrative Reason for Consultation: abscess HPI Narrative: DEBBY BAILON, is a 43 F with h/o DM neuropathy, suprapubic catheter, ostomy,spina bifida, presented with 2 weeks worsening L heel pain, redness, swelling. Seen in ED 3, given 10 days bactrim which helped somewhat. When abx stopped, developed fever, chills, nausea, not feeling well. Pain was moderate/severe. Came back to ED 08/11, admitted on linezolid and clinda. Now s/p OR 08/12/24 [address]Dr. Gonzalez for I&D of abscess. On vanc/cefepime/flagyl, feeling better. Full ROS performed and neg except as noted above. [facility] Medical History Type 2 diabetes mellitus with [...] evident. No evidence of osteomyelitis. Reading Location: [address] 08/13/24 1017 <Electronically signed by Bev Ngo MD> Cosigner Signature (if applicable): CC: Dr. Will Brannon MD~ Signed [facility] Work Phone: [phone] Consult note Author Dez [facility] Note Date/Time August 12, 2024 6:0 3pm [facility] Medical Records Department [address] [place] [address] Anesthesia Postop Eval II 08/12/24 1802 MR#: [id number] Acct: [id number] Name: DEBBY BAILON Rep #:[id number] : 1980 43 From: Dez Moran MD PCP: Dr. Will Brannon MD Status:ADM IN Y Race: C Location: [place] [address] 8-1 Anesthesia Postop Eval I Sum Postop Eval Completion status Anesthesia document: Postop Eval 1 completed: Yes Anesthesia Postop Eval I Summary Anesthesia Postop Eval I Summary: Anesthesia Postop Eval I: Assessment Summary Airway patent Yes 08/12/24 16:55 SCHOOL LIBRARY MEDIA PROGRAM DIRECTOR.TNES Spontaneous unlabored Yes 08/12/24 16:55 SCHOOL LIBRARY MEDIA PROGRAM DIRECTOR.TNES respirations Mental status nausea No 08/12/24 16:55 SCHOOL LIBRARY MEDIA PROGRAM DIRECTOR.TNES Vomiting No 08/12/24 16:55 SCHOOL LIBRARY MEDIA PROGRAM DIRECTOR.TNES Anesthesia Postop Eval I: Fluid Summary Crystalloid volume administer 400 08/12/24 16:55 SCHOOL LIBRARY MEDIA PROGRAM DIRECTOR.TNES (ml) Colloids volume administered ( ml) Blood Product volume administered (ml) Total IV fluid infused 400 08/12/24 16:55 SCHOOL LIBRARY MEDIA PROGRAM DIRECTOR.TNES Anesthesia Postop Eval I: Summary Notes Anesthesia Complication No 08/12/24 16:55 SCHOOL LIBRARY MEDIA PROGRAM DIRECTOR.TNES Anesthesia Complication Comment: Post-operative progress note Anesthesia: Postop Eval II Evaluation Mental status: Awake and Calm Pain Level: 1 nausea: No Vomiting: No Complications Anesthesia Complication: No 08/12/24 1803 <Electronically signed by Dez langford MD> Date _ Dez Moran MD Cosigner Signature: Date CC: ~ Signed [facility] Work Phone: [phone] 134-770003-17-2025 Consult note Author Mc Gonzalez [facility] Note Date/Time August 12, 2024 5:2 4pm [facility] Medical Records Department [address] [place] [address] Consultation 08/12/24 1658 MR#: [id number] Acct: [id number] Name: DEBBY BAILON Rep #:[id number] : 1980 43 From: Mc Smith PM PCP: Dr. Will Brannon MD Status:ADM IN Location: [facility] [id number]- [id number] Assessment & Plan Assessment/Plan (1) Cutaneous abscess [...] mellitus with foot ulcer: QUALIFIERS: Diabetes mellitus half-way insulin use: with long term care administrator use Qualified Code(s): E11.621 - Type 2 diabetes mellitus with foot ulcer;L97.509 - Non- pressure chronic ulcer of other part of unspecified foot with unspecified severity; Z79.4 - nursing home (current) use of insulin HPI Consult Data [...] abscess as well as for surgical intervention. [facility] Medical History (Updated 08/12/24 @ 17:[address] Mc Gonzalez DPM) Type 2 diabetes mellitus with foot [...] 87.4 H, Lymph % (Auto) 7.8 L, [place] % (Auto) 3.3, Eos % (Auto) 0.0, [...] BUN/Creatinine Ratio 9.7 L, Glucose 294 H, XbwfnsrhdiK4h 11.9, Lactic Acid 1.6, Calcium 9.7, Magnesium [...] Sl. Cloudy, Urine pH 6.0, Ur Specific [place] 1.015, Urine Protein 30 H, Urine Glucose [...] 79.0 H, Lymph % (Auto) 13.9 L, [place] % (Auto) 5.3, Eos % (Auto) 0.0, [...] correlation with clinical exam findings. Reading Location: [facility] Lower Extremity MRI 08/12/24 00:55 IMPRESSION: The [...] evident. No evidence of osteomyelitis. Reading Location: [id number] 08/12/24 2120 <Electronically signed by Mc Gonzalez DPM> Cosigner Signature (if applicable): CC: Dr. Will Brannon MD~ Signed [facility] Work Phone: [phone] Progress note Author Quynh [facility] Note Date/Time August 12, 2024 5:1 9pm [facility] Medical Records Department [address] [place] [address] Progress Note - Hospitalist 08/12/24 1713 MR#: [id number] Acct: [id number] Name: DEBBY BAILON Rep #:[id number] : 1980 43 From: Quynh Boyer DO PCP: Dr. Will Brannon MD Status:ADM IN Location: [place] [address]- 1 Reason for Visit Reason for Visit: Diagnoses Sepsis, unspecified organism (08/11/24) Elevated white blood cell count, unspecified (08/11/24) Type 2 diabetes mellitus with diabetic polyneuropathy (08/11/24) Morbid (severe) obesity due to excess calories (08/11/24) Cutaneous abscess of left foot (08/11/24) Cellulitis of left lower limb (08/11/24) Fever, unspecified (08/11/24) Resistance to unspecified antibiotic (08/11/24) Body mass index [BMI] 40.0-44.9, adult (08/11/24) nursing home (current) use of insulin (08/11/24) Patient's noncompliance [...] 87.4 H, Lymph % (Auto) 7.8 L, [place] % (Auto) 3.3, Eos % (Auto) 0.0, [...] Sl. Cloudy, Urine pH 6.0, Ur Specific [place] 1.015, Urine Protein 30 H, Urine Glucose [...] 79.0 H, Lymph % (Auto) 13.9 L, [place] % (Auto) 5.3, Eos % (Auto) 0.0, [...] correlation with clinical exam findings. Reading [facility] Lower Extremity MRI 08/12/24 00:55 IMPRESSION: The [...] evident. No evidence of osteomyelitis. Reading Location: [address] Physical Exam Const alert, oriented x3 [...] mellitus with foot ulcer: QUALIFIERS: Diabetes mellitus long term care administrator insulin use: with long term care administrator use Qualified Code(s): E11.621 - Type 2 diabetes mellitus with foot ulcer; L97.509 - Non- pressure chronic ulcer of other part of unspecified foot with unspecified severity; Z79.4 - nursing home (current) use of insulin PLAN: Plan 1. Left lower extremity cellulitis-patient will remain on her current antibiotic coverage per infectious diseases-Flagyl and cefepime #2 left heel abscess-patient will be seen by podiatry, this may need drained, she will remain on her current antibiotic coverage #3 type 2 uacqimhh-wvriiyphnvps-smyfoja's blood sugars will be monitored, sliding scale [...] 35 minutes Charges/Coding Visit Charges Inpatient E&M: 80832 Subs Hosp L2 08/12/24 1712 <Electronically signed by Quynh Boyer DO> Cosigner Signature (if applicable): CC: ~ Signed [facility] Work Phone: [phone]) [phone] Consult note Author Lefty Barnes [facility] Note Date/Time August 12, 2024 4:5 6pm [facility] Medical Records Department [address] [place] [address] Anesthesia Postop Eval I 08/12/24 1655 MR#: [id number] Acct: [id number] Name: DEBBY BAILON Rep #:[id number] : 1980 43 From: Lefty ENNIS PCP: Dr. Will Brannon MD Status:ADM IN Y Race: C Location: [address] Anesthesia: Postop Eval I Current Vital Signs Temperature: 97.6 F Pulse Rate: 86 Blood Pressure: 113/95 Respiratory Rate: 14 Pulse Ox: 92 Assessment Airway patent: Yes Spontaneous unlabored respirations: Yes nausea: No Vomiting: No Anesthesia Complication: No Fluid Hydration Crystalloid volume administer (ml): 400 Total IV fluid infused: 400 Progress Note Anesthesia document: Postop Eval 1 completed: Yes 08/12/24 1656 <Electronically signed by Lefty Barnes SCHOOL [employer] MEDIA PROGRAM DIRECTOR> Date _ Leftycharla DamonCameron SCHOOL LIBRARY MEDIA PROGRAM DIRECTOR Cosigner Signature: Date CC: ~ Signed [facility] Work Phone: [phone] 423-389903-17-2025 Procedure [facility] 08-12-2024 Consult note Author Dez Moran [facility] Note Date/Time August 12, 2024 3:2 2pm [facility] Medical Records Department [address] [place] [address] Pre-Anesthesia Evaluation 08/12/24 1512 MR#: [id number] Acct: [id number] Name: DEBBY BAILON Rep #:[id number] : 1980 43 From: Dez Moran MD PCP: Dr. Will Brannon MD Status:ADM IN Y Race: C Location: [place] [address] ASA Classification* ASA Classification ASA Classification: 3 [...] heel abscess. Anesthesia History Anesthesia History - composition roll maker and cutter: Anesthesia History - composition roll maker and cutter Hx Hospitalization No 01/10/22 13:40 Any Problems [...] sips of water?: Yes PONV PONV - composition roll maker and cutter: PONV - composition roll maker and cutter Female HX of Motion Sickness HX of N/V After Surgery Non-Smoker Duration of Surgery greater than 60 minutes Number of Risk Factors PONV Score Height & Weight Height & Weight: Anesthesia: Height & Weight Height 5 ft 1 in 08/12/24 14:58 Weight: 99.2 kg 08/12/24 14:58 Body Mass Index (BMI) 41.3 08/12/24 14:58 Respiratory Assessment Respiratory Assessment - composition roll maker and cutter: Respiratory Tract Infection Hx - composition roll maker and cutter Hx Respiratory Tract Infection No 08/12/24 14:58 STOP Sleep Apnea STOP Sleep Apnea - composition roll maker and cutter: STOP Sleep Apnea - composition roll maker and cutter Hx Hypertension Yes 08/12/24 12:36 Hx Sleep [...] Tobacco Use History Tobacco Use History - composition roll maker and cutter: Tobacco Use History - composition roll maker and cutter Tobacco Use Non-smoker 01/10/22 13:40 Smoking Status Never smoker 08/11/24 23:02 Hx Tobacco Use No 08/11/24 23:02 Years Smoking Packs Smoked per Day Smoking Cessation Date was within the last 15 years Hx Smoking Cessation Date Hx Smoking Cessation Counseling Hematologic Medial History Hematologic Hx - composition roll maker and cutter: Hematologic 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 Hx of Blood Transfusion No 08/11/24 23:02 [...] confused, unrespo /Reproduction History /Reproductive History - composition roll maker and cutter: /Reproductive Hx- composition roll maker and cutter Hx Now No 08/12/24 14:58 Gestational Age [...] 500 Mg Tablet PO Not Given BIDCM [facility] Atorvastatin Calcium 80 mg 08/12/24 22:00 Atorvastatin Calcium 80 Mg Tablet PO 2200 [facility] Cholecalciferol 125 mcg 08/12/24 10:00 08/12/24 11:58 Cholecalciferol (Vit D3) 125 Mcg Capsule (5,000 Units) PO Not Given DAILY [facility] Divalproex Sodium 500 mg 08/12/24 22:00 Divalproex Sodium 250 Mg Tablet PO QHS [facility] Enoxaparin Sodium 40 mg 08/12/24 00:11 08/12/24 [...] 100 Unit/Ml Insuln.Pen SC Not Given TIDCM [facility] Insulin Human Lispro 0 unit 08/12/24 08:00 08/12/24 12:22 Insulin Lispro 100 Unit/Ml Insuln.Pen SC 2 u TIDCM [facility] Administration Protocol Loratadine 10 mg 08/12/24 10:00 08/12/24 11:59 Loratadine 10 Mg Tablet PO Not Given DAILY [facility] Magnesium Hydroxide 30 ml 08/12/24 00:11 Magnesium Hydroxide 30 Ml Udc PO DAILY PRN PRN Constipation Melatonin 3 mg 08/12/24 00:11 Melatonin 3 Mg Tablet PO QHS PRN PRN INSOMNIA Metronidazole 500 mg 08/12/24 09:45 08/12/24 14:12 Metronidazole 500 Mg Tablet PO Not Given TID [facility] Morphine Sulfate 2 mg 08/12/24 00:11 08/12/24 14:08 Morphine 2 Mg/Ml Syringe IV 2 mg Q4H PRN PRN Administration Pain Score 6-10 Ondansetron HCl 4 mg 08/12/24 00:11 08/12/24 09:03 Ondansetron 4 Mg/2 Ml Vial IV 4 mg Q4H PRN PRN Administration NAUSEA/VOMITING Pantoprazole Sodium 20 mg 08/12/24 10:00 08/12/24 11:58 Pantoprazole Sodium 20 Mg Tablet PO Not Given DAILY [facility] Pregabalin 75 mg 08/12/24 10:00 08/12/24 12:00 Pregabalin 75 Mg Capsule PO Not Given BID [facility] Sodium Chloride 10 - 40 ml 08/12/24 00:12 0.9% Saline Lock 10 Ml Syringe IV UD PRN SALINE FLUSH Tolterodine Tartrate 4 mg 08/12/24 10:00 08/12/24 11:58 Tolterodine Tartrate 4 Mg Cap.Sa PO Not Given DAILY [facility] Trazodone HCl 100 mg 08/12/24 22:00 Trazodone 100 Mg Tablet PO QHS [facility] Zinc Sulfate 50 mg 08/12/24 00:11 08/12/24 11:58 Zinc Sulfate 50 Mg Zinc (220 Mg) Oral Capsule PO Not Given DAILY [facility] PFSH Medical History Suprapubic catheter Noncompliance with [...] MD Cosigner Signature: Date CC: ~ Signed [facility] Work Phone: [phone] 546-761603-17-2025 History and physical note Author Ramana Cervantes [facility] Note Date/Time August 12, 2024 6:4 6am [facility] Medical Records Department [address] [facility] [place] [address] H&P Exam - Hospitalist 08/11/24 2243 MR#: [id number] Acct: [id number] Name: DEBBY BAILON Rep #:[id number] : 1980 43 From: Ramana Beltran DO PCP: Dr. Will Brannon MD Status:ADM IN Location: [place] [address] HPI - General General Date of Admission: [...] daily x 10 days who presents to [facility] ER complaining of worsening Left lower extremity [...] that is expected to extend beyond2 midnights. [facility] Medical History (Updated 08/12/24 @ 00:[address] Ramana Rose, DO) Suprapubic catheter Noncompliance with diabetes treatment Diabetes [...] 87.4 H, Lymph % (Auto) 7.8 L, [place] % (Auto) 3.3, Eos % (Auto) 0.0, [...] L, Glucose 294 H, Calcium 9.7 Imaging [facility] Imaging Services [address] [place] [id number] Extremity Lower WITH Contrast MR#: [id number] Acct: [id number] Name: DEBBY BAILON Rep #: [id number] : 1980 F 43 From: Falguni Castillo DO PCP: Dr. Will Brannon MD Status: ADM IN Study: Extremity Lower WITH Contrast Date of Exam: 08/12/24 Exam# [id number] Ordering Dr: Ramana Rose DO PROCEDURE: CT [...] correlation with clinical exam findings. Reading Location: [facility] CC: Dr. Ramana Rose DO; Dr. Will Brannon MD ~ Newspaper Illustrator: Signed Assessment & Plan Assessment/Plan (1) Sepsis: [...] mellitus with diabetic polyneuropathy: QUALIFIERS: Diabetes mellitus half-way insulin use: with half-way use Diabetes mellitus type: type 2 Qualified Code(s): E11.42 - Type 2 diabetes mellitus with diabetic polyneuropathy; Z79.4 - nursing home (current) use of insulin (8) Noncompliance with [...] polymicrobial infection. Give acetaminophen as needed for olkl-ly-mdtlhhxn (level 1-5/10) pain or fever. Give morphine IV as needed for severe (level 6-10/10) pain. Give ondansetron IV as needed nausea and vomiting. Finally, we will consult sales porter on-call see this patient on rounds in [...] 75 minutes. Update: I was contacted by AUTOMOTIVE TECHNOLOGY INSTRUCTOR and informed that 1/2 cultures of already [...] responsive hypotension Charges/Coding Visit Charges Inpatient E&M: 01080 Init Hosp L3 08/12/24 0646 <Electronically signed by Ramana Rose DO> Cosigner Signature (if applicable): CC: Dr. Ramana Rose DO; Dr. Will Brannon MD~ Signed [facility] Work Phone: 1(659) 112-289103-17-2025 History of Present illness Narrative* Josesito Verdin LPN - 08/12/2024 7:49 AM EDT Scan on 08/11/2024 11:21 PM by Provider, External, CAMDEN: Consultation - Emergency Medicine documented in this encounterFostoria City Hospital03-17-2025 Discharge summary Author Kevin Barcenas [facility] Note Date/Time August 11, 2024 11: 11pm [facility] Medical Records Department [address] [place] [address] Emergency Department Summary 08/11/24 MR#: [id number] Acct: [id number] Name: DEBBY BAILON Rep #:[id number] : 1980 43 From: Kevin Barcenas MD PCP: Dr. Will Brannon MD Status:ADM [facility] History of Present Illness Chief Complaint: [...] x #350 ea 09/01/22 Unkno wn Rx 32 (BD Ultra-Fine Hope Pen Needle) loratadine 10 [...] 87.4 H Lymph % (Auto) 7.8 L Lim[place] % (Auto) 3.3 Eos % (Auto) 0.0 [...] kidneydisease, Leukocytosis Disposition Disposition: Acute Care Hospital [facility] What to do if you have Problems For any increased pain, shortness of breath, bleeding, nausea or vomiting, chestpain, or any unexpected problems, contact your Primary Care Provider. Call [facility] ([phone]) or report to the closest Emergency Room. Call 911 if necessary. 08/11/241 <Electronically signed by Kevin Barcenas MD> Cosigner Signature (if applicable): CC: Dr. Will Brannon MD ~ Signed [facility] Work Phone: 1(354) 759-879803-17-2025 Evaluation note* Diagnosis Onset Date Resolution Status Admit Date Abscess of left heel acute [facility] 2024 10:51pm Cellulitis of foot, left acute August 11, 2024 10:51pm Cellulitis of left leg acute [facility] 2024 10:51pm Cutaneous abscess of left foot [...] of muscle chronic August 11 025 10:51pm [facility] Work Phone: [phone]) 664-894603-17-2025 Evaluation note* Diagnosis Onset Date Resolution Status Admit Date Abscess of left heel inactive [place] 2024 10:51pm Cellulitis of foot, left inactive August 11, 2024 10:51pm Cellulitis of left leg inactive [facility] 2024 10:51pm Cutaneous abscess of left foot [...] foot ulcer inactive August 11, 2024 10:51pm [facility] Work Phone: 1(139) 933-207303-17-2025 Radiology Diagnostic study [facility]03-16-2025 Discharge summary Author Kevin Barcenas [facility] Note Date/Time August 11, 2024 11: 11pm [facility] Medical Records Department [address] [place] [address] Emergency Department Summary 08/11/24 MR#: [id number] Acct: [id number] Name: DEBBY BAILON Rep #:[id number] : 1980 43 From: Kevin Barcenas MD PCP: Dr. Will Brannon MD Status:ADM IN Location: [place] [address] HPI History of Present Illness Chief Complaint: [...] Method Room Air Room Air Room Air 03/16/25 22:29 Temperature 100.1 F H Temperature Source [...] 87.4 H Lymph % (Auto) 7.8 L [place] % (Auto) 3.3 Eos % (Auto) 0.0 [...] kidneydisease, Leukocytosis Disposition Disposition: Acute Care Hospital [facility] What to do if you have Problems For any increased pain, shortness of breath, bleeding, nausea or vomiting, chestpain, or any unexpected problems, contact your Primary Care Provider. Call [facility] ([phone]) or report to the closest Emergency Room. Call 911 if necessary. 08/11/24 2311 <Electronically signed by Kevin Barcenas MD> Cosigner Signature (if applicable): CC: Dr. Will Brannon MD ~ Signed [facility] Work Phone: 1([phone]) 986-326603-06-2025 History of Present illness Narrative* Josesito Verdin LPN - 08/01/2024 7:38 AM EST Scan on 07/31/2024 10:21 PM by Provider, External, PA-C: Consultation - Emergency Medicine documented in this encounterFostoria City Hospital02-18-2025 History of Present illness Narrative* Naty [...] planned. Naty Haddad LPN documented in this encounterFostoria City Hospital02-13-2025 History of Present illness Narrative* Devin George, SUSAN.DIRECTOR LABOR STANDARDS - 07/11/2024 4:07 PM EST Chief Complaint [...] 05/02/2013 Chronic pain 02/12/[address] ([facility]) 09/30/2021 Constipation due to outlet dysfunction 10/07/2021 Cyst of ovary 11/28/2011 Diabetes mellitus with peripheral vascular disease ([facility]) 03/29/2023 Diabetic eye exam ([facility]) 06/17/2016 Last done: 01/25/2017 Diabetic eye exam ([facility]) 06/17/2016 Last done: 03/08/2019 DJD (degenerative joint disease), thoracic DM (diabetes mellitus), secondary, uncontrolled, 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 Elevated LFTs 03/11/2020 Essential hypertension 02/21/2019 Fatty [...] INJECTIONS. Blood-Glucose Meter,Continuous (FREESTYLE ROSA 3 READER) [facility] DISPENSE ONE READER KIT. USE FOR CONTINUOUS [...] catheter irrigation daily or as needed. Insulin [place], Disposable, (COMFORT EZ PEN NEEDLES) 29 gauge [...] once daily. Rinse mouth after use. Insulin [place], Disposable, 32 gauge x 5/16 ndle Use [...] and follow up with neurology. Devin George APRN.DIRECTOR LABOR STANDARDS documented in this encounterFostoria City Hospital02-11-2025 Instructions* Patient Instructions* Araceli Torres PA-C - 07/09/2024 4:26 PM EST Depakote (valproate) 500 ER- take 2 at bed for 5 days then 1 at bed for 5 days and stop. Continue with lyrica 75mg twice daily Follow up in 6 months documented in this encounterFostoria City Hospital02-11-2025 History of Present illness Narrative* Araceli TorresCAMDEN - 07/09/2024 3:51 PM EST Images from the original note were not included. [facility] Follow up CC: [...] Diagnosis Date Amputation of left great toe ([facility]) 06/25/2020 Arthritis started age 19 Bilateral leg edema 07/16/2018 Cervical radiculopathy 05/02/2013 Chronic pain 02/12/[address] ([facility]) 09/30/2021 Constipation due to outlet dysfunction 10/07/2021 Cyst of ovary 11/28/2011 Diabetes mellitus with peripheral vascular disease ([facility]) 03/29/2023 Diabetic eye exam ([facility]) 06/17/2016 Last done: 01/25/2017 Diabetic eye exam ([facility]) 06/17/2016 Last done: 03/08/2019 DJD (degenerative joint disease), thoracic DM (diabetes mellitus), secondary, uncontrolled, 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 Elevated LFTs 03/11/2020 Essential hypertension 02/21/2019 Fatty [...] W/O BRSH SPEC VARICIES INJ 03/25/2024 dr [email or web address] HERNIA REPAIR W/MESH 2018 LEXISCAN STRESS TEST [...] INJECTIONS. Blood-Glucose Meter,Continuous (FREESTYLE ROSA 3 READER) [facility] DISPENSE ONE READER KIT. USE FOR CONTINUOUS [...] catheter irrigation daily or as needed. Insulin [place], Disposable, (COMFORT EZ PEN NEEDLES) 29 gauge [...] once daily. Rinse mouth after use. Insulin [place], Disposable, 32 gauge x 5/16 ndle Use [...] Wt 100.2 kg (220 lb 12.8 oz) 03/11/2024 (Exact Date) SpO2 100% BMI 40.37 kg/m [...] which included preparing to see the patient, lwgq-br-fszj patient care, completing clinical documentation, obtaining and/or reviewing separately obtained history, performing a medically appropriate examination, counseling and educating the pat ient/family/caregiver, and ordering medications, tests, or procedures. PDMP website checked and validated. All prescriptions have been APPROPRIATELY filled. No suspiciousactivity was identified. 07/09/2024 by CAMDEN Pederson PA-C General Neurology [address] [place] [address]. [id number] Appointment: [phone] 07/08/2024 [facility] Physical Health Summary [...] population and warrants attention documented in this encounterFostoria City Hospital01-31-2025 Telephone encounter Note * Telephone Encounter - Denae Barraza MA - 06/28/2024 8:53 AM EST Patient rescheduled. Notified via my chart. Denae Barraza MA [facility]01-31-2025 Miscellaneous Notes* Telephone Encounter - Denae Barraza MA - 06/28/2024 8:53 AM EST Patient rescheduled. Notified via my chart. Denae Barraza MA documented in this encounterFostoria City Hospital01-16-2025 History of Present illness Narrative* Josesito Verdin LPN - 06/13/2024 7:38 AM EST Scan on 06/13/2024 7:21 AM by Provider, CAMDEN Navarro: Consultation - Emergency Medicine documented in this encounterFostoria City Hospital01-14-2025 History of Present illness Narrative* Jessie [...] concerns. Jessie Alanis MA documented in this encounterFostoria City Hospital01-13-2025 History of Present illness Narrative* Denae Barraza MA - 06/10/2024 1:44 PM EST Scan on 06/09/2024 6:50 AM by Provider, CAMDEN Navarro: Consultation - Emergency Medicine Denae Barraza MA documented in this encounterFostoria City Hospital01-10-2025 Note. MICRO - Microbiology PROCEDURE: Blood [...] Locations *1: This test was performed at: [address], [address] [place], [place] [address]-10-2025 Note. MICRO - Microbiology PROCEDURE: Blood Culture [...] Locations *1: This test was performed at: [address], [place], [address]01-07-2025 Note. MICRO - Microbiology PROCEDURE: Urine Culture [...] Locations *1: This test was performed at: [address], [address] [place], [place] [address]-05-2025 Evaluation + Plan note Diagnostic Tests Pending * Urine Culture 06/02/24 [facility] 01-05-2025 Hospital Discharge instructions Patient Education [...] swelling in the outer vaginal area (labia) [phone] [employer] [address] [place] [address]. All rights reserved. This information is not [...] face Sudden trouble with speech or vision [phone] [employer] [address] [place] [address]. All rights reserved. This information is not intended as a substitute for professional medical care. Always follow yourhealthcare professional's instructions. Follow Up Care 06/02/2024 00:17:34 With:WILL BRANNON MD Address: [address] [place] [address]- When:2-4 days [facility] 01-05-2025 Note Discharge Instructions Thank you for allowing [facility] to assist you with your healthcare needs. The following is importantdischarge information regarding your hospital visit. Diagnosis from Today's Visit Sprain of low back What to Do Next Instructions from Your Care Team No qualifying data available. Post Acute Orders No qualifying data available. You Need to Schedule the Following Appointments Follow Up with WILL BRANNON MD When:Within 2-4 days Where:[address] [place] [address]- Allergies Mushrooms(Severe) Throat swelling Peanuts(Severe) [...] swelling in the outer vaginal area (labia) 4536-3791 [employer] [address] [place] [address]. All rights reserved. This information is not [...] face Sudden trouble with speech or vision [phone] [employer] [address] [place] [address]. All rights reserved. This information is not intended as a substitute for professional medical care. Always follow yourhealthcare professional's instructions. Additional Information VACCINATE! IT SAVES LIVES! Members of the community who have not yet received the COVID-19 vaccine and would like to receive it can visit one of [facility] vaccine clinics. There are many vaccine clinic locations within the [facility]. For locations and available times, please visit www.gettheshot.coronavirus.[place].gov/. It is important to note that some COVID mobile vaccine clinics are held outdoors and may be canceled in rainy or stormy conditions. To learn more about pediatric vaccinations (ages 5-11), we invite you to visit the [facility] webpage. https://www.[email or web address].org/pages/[email or web address]-Nrtfl-Niezrpyrzlq-Icoafvweru-Mwvtj-Zcf stions.htmlTo learn more about the COVID-19 vaccine, we invite you to visit the CDC website for a list of frequently asked questions. https://www.cdc.gov/coronavirus/2019-ncov/vaccines/faq.html [facility] Patient Portal Access Instructions: Stay connected with your healthcare team and access your personal medical information anytime with the [facility] Patient Portal. If you would like a full copy of your medical records please contact the [facility] Medical Records Department Monday through Monday between 8a.m. and 4:30p.m. Please follow the directions below to access the portal: 1.Access the email account you provided upon registration to the [facility].2.Look for an invitation email from [facility].3.Open the email and access the invitation link: Accept Invitation to [facility]4.Fill in the required hartley to create your account. Sign into [email or web address] with your username and password that you [...] you will allow to register on the [facility] Patient Portal for access to your information. You can also access the [facility] Patient Portal on the [employer]. Simply click on Health Records under [employer] and then click on the EyeEm logo. HOW TO SAFELY DISPOSE OF PRESCRIPTION [...] Call your local pharmacy or go to http://[email or web address] of Defence/8T1Dz4g to find one close to you.3.Make use of household items: Use cat litter or old coffee grounds to dispose medications if other options arenot available. Mix your drugs with these household products, seal them in an airtight container andthrow it into the garbage. Call [facility]: [phone] to be sure your drugs can be [...] aware that I should contact my doctor. 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 Signature: Date/Time: Relationship to Patient: Witness Name/Signature: Date/Time: [facility]01-05-2025 Note* Exam Date Time Procedure Performing Provider Status 06/02/24 1:[address] Abd/Pelvis w/ IV Contrast Only DONAVON HUSAIN MD; Auth (Verified) [id number] ORIGINAL EXAMINATION: CT OF THE ABDOMEN AND [...] Sign Date: 06/02/2024 2:08:26 AM Ordering Provider: [facility]12-10-2024 History of Present illness Narrative * Naty Hadadd LPN - 05/07/2024 3:31 PM EST CC [...] planned. Naty Haddad LPN documented in this encounterFostoria City Hospital12-06-2024 History of Present illness Narrative* Sabra Nevarez, OD - 05/03/2024 4:31 PM EST 1. Type 2 diabetes mellitus without retinopathy (HCC) Risk of diabetic changes and vision loss can be minimized by tight control of blood sugar, blood pressure, and cholesterol levels. Educated patient to continue care with primary care doctor and/or telephone interceptor operator to maintain optimum levels as they [...] 03, 2024 4:32 PM documented in this encounterFostoria City Hospital12-06-2024 Telephone encounter Note * Telephone Encounter - Elayne Awan RN - 05/03/2024 2:07 PM EST Pt notified of results. [facility]12-06-2024 Miscellaneous Notes* Telephone Encounter - Elayne [...] thyroid labs were ok. documented in this encounterFostoria City Hospital12-06-2024 Telephone encounter Note * Telephone Encounter - Josesito Verdin LPN - 05/03/2024 8:46 AM EST Left message for pt to contact office. Josesito Verdin LPN [facility]12-05-2024 Telephone encounter Note* Telephone Encounter - Will Brannon MD - 05/02/2024 7:45 PM EST Let patient know her magnesium and thyroid labs were ok. [facility]12-05-2024 Telephone encounter Note* Telephone Encounter - Naty Haddad LPN - 05/02/2024 9:27 AM EST Patient called. Verified name and date of . Patient informed of results- verbalizes understanding. Naty Haddad LPN [facility]12-05-2024 Miscellaneous Notes* Telephone Encounter - Naty [...] JENIFFER Gaona MT, PA-C documented in this encounterFostoria City Hospital12-05-2024 Telephone encounter Note * Telephone Encounter - Naty Haddad LPN - 05/02/2024 8:23 AM EST Called patient. No answer- left message. Please give results per provider. Naty Haddad LPN [facility]12-05-2024 Telephone encounter Note* Telephone Encounter - Naty Haddad LPN - 05/02/2024 8:22 AM EST ----- Message from Cory Box PA-C sent at 05/01/2024 10:11 PM EST ----- No infection in the urine JENIFFER Gaona MT, PA-C [facility]12-03-2024 Telephone encounter Note* Telephone Encounter - Araseli Ramos RN - 04/30/2024 12:25 PM EST Patient notified of results. Patient verbalizes understanding. Araseli Ramos RN [facility]12-03-2024 Miscellaneous Notes* Telephone Encounter - Araseli Ramos RN - 04/30/2024 12:25 PM EST Patient notified of results. Patient verbalizes understanding. Araseli Ramos RN * Telephone Encounter - Denae Barraza MA - 04/30/2024 8:53 AM EST Left message for patient to contact office. Denae Barraza MA * Telephone Encounter - Will Brannon MD - 04/29/2024 5:25 PM EST Let patient know mammo was ok. documented in this encounterFostoria City Hospital12-03-2024 Telephone encounter Note * Telephone Encounter - Denae Barraza MA - 04/30/2024 8:53 AM EST Left message for patient to contact office. Denae Barraza MA [facility]12-02-2024 Telephone encounter Note* Telephone Encounter - Will Brannon MD - 04/29/2024 5:25 PM EST Let patient know mammo was ok. [facility]11-29-[facility] Telephone encounter Note* Telephone Encounter - Bayron Arriaga, [place] - 04/26/2024 9:23 AM EST Pt returned call and given provider's message below with verbalized understanding. Patient agreeable. [facility]11-29-2024 Miscellaneous Notes* Telephone Encounter - Bayron Arriaga RN - 04/26/2024 9:23 AM EST Pt returned call and given provider's message below with verbalized understanding. Patient agreeable. * Telephone Encounter - Denae Barraza MA - 04/26/2024 8:47 AM EST Left message for patient to contact office. Denae Barraza MA * Telephone Encounter - Will Brannon MD - 04/25/2024 1:20 PM EST Let patient know thyroid nodules are stable. Will repeat in a year. documented in this encounterFostoria City Hospital11-29-2024 Telephone encounter Note * Telephone Encounter - Denae Barraza MA - 04/26/2024 8:47 AM EST Left message for patient to contact office. Denae Barraza MA [facility]11-28-2024 Telephone encounter Note* Telephone Encounter - Will Brannon MD - 04/25/2024 1:20 PM EST Let patient know thyroid nodules are stable. Will repeat in a year. [facility]11-27-[facility] History of Present illness Narrative* Jaimee Trujillo, RT(R) - 04/24/2024 3:40 PM EST Radiology [...] PATIENT PRESENTS WITH AN IMPLANTABLE OR ATTACHED CHIEF OF SAFETY AND PROTECTION: No RADIOLOGY DEPARTMENT: Mammography PERIPHERAL IV DATA: Not applicable SIGNED BY: RT Shell(R) April 24, 2024 3:37 PM documented in this encounterFostoria City Hospital11-21-2024 History of Present illness Narrative* Megan [...] PATIENT PRESENTS WITH AN IMPLANTABLE OR ATTACHED CHIEF OF SAFETY AND PROTECTION: No RADIOLOGY DEPARTMENT: Ultrasound PERIPHERAL IV DATA: Not applicable SIGNED BY: Megan Armijo RDMS T April 18, 2024 4:16 PM documented in this encounterFostoria City Hospital11-18-2024 History of Present illness Narrative* Kandace Alexander MD - 04/15/2024 1:22 PM EST (Elements copied from my note dated March 21, 2024, have been reviewed and updated where appropriate, and all reflect current assessment and medical decision making from today's encounter, 2023) HISTORY OF PRESENT ILLNESS: Debby Bailon is a 43 year old female end of September 2023 started withUTI, wound up getting admitted to [facility] October 2023, was pretty sick from description. [...] 05/02/2013 Chronic pain 02/12/[address] ([facility]) 09/30/2021 Constipation due to outlet dysfunction 10/07/2021 Cyst of ovary 11/28/2011 Diabetes mellitus with peripheral vascular disease (HCC) 03/29/2023 Diabetic eye exam ([facility]) 06/17/2016 Last done: 01/25/2017 Diabetic eye exam ([facility]) 06/17/2016 Last done: 03/08/2019 DJD (degenerative joint disease), thoracic DM (diabetes mellitus), secondary, uncontrolled, 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 Elevated LFTs 03/11/2020 Essential hypertension 02/21/2019 Fatty [...] catheter irrigation daily or as needed. Insulin [place], Disposable, (COMFORT EZ PEN NEEDLES) 29 gauge [...] once daily. Rinse mouth after use. Insulin [place], Disposable, 32 gauge x 5/16 ndle Use once daily with Victoza COMPOUNDED PRESCRIPTION Stoma catheter tube. DX: Qo5.4 and K59.2 REVIEW OF SYSTEMS: GENERAL: No fever, night sweats, weight loss or malaise. All other reviewed and negative other than HPI. PHYSICAL EXAMINATION: VITAL SIGNS: [facility] 03/11/2024 GENERAL APPEARANCE: Well appearing, in no acute distress, alert and oriented x3, well-hydrated, well nourished. I spent a total of 20 minutes on the date of the service which included preparing to see the patient, zuqm-dy-xvny patient care, completing clinical documentation, obtaining and/or reviewing separately obtained history, counseling and educating the patient/family/caregiver, independently interpretin g results (not separately reported), and communicating results to the patient/family/caregiver. Electronically Signed: Kandace Alexander MD April 15, 2024 documented in this encounterFostoria City Hospital11-13-2024 History of Present illness Narrative* Will [...] be larger. She discussed this with the SURVEYOR'S ASSISTANT in general surgery at her office visit [...] 05/02/2013 Chronic pain 02/12/[address] ([facility]) 09/30/2021 Constipation due to outlet dysfunction 10/07/2021 Cyst of ovary 11/28/2011 Diabetes mellitus with peripheral vascular disease (HCC) 03/29/2023 Diabetic eye exam ([facility]) 06/17/2016 Last done: 01/25/2017 Diabetic eye exam ([facility]) 06/17/2016 Last done: 03/08/2019 DJD (degenerative joint disease), thoracic DM (diabetes mellitus), secondary, uncontrolled, 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 Elevated LFTs 03/11/2020 Essential hypertension 02/21/2019 Fatty [...] INJECTIONS. Blood-Glucose Meter,Continuous (FREESTYLE ROSA 3 READER) [facility] DISPENSE ONE READER KIT. USE FOR CONTINUOUS [...] catheter irrigation daily or as needed. Insulin [place], Disposable, (COMFORT EZ PEN NEEDLES) 29 gauge x 1/2 One needle with each lantus shot once a day. Dx: E13.29 on insulin ondansetron orally disintegrating (ZOFRAN ODT) 8 mg disintegrating tablet Take 8 mg by mouth every 8 hours as needed for nausea/vomiting. fluticasone (FLONASE) 50 mcg/actuation nasal spray Use 2 Sprays in each nostril once daily. Rinse mouth after use. Insulin [place], Disposable, 32 gauge x 5/16 ndle Use [...] as per #1 4. Diabetic eye exam ([facility]) - ICD9: V72.0, 250.00, ICD10: Z01.00, E11.9 [...] 39.86 kg/(m^2) 7. Paroxysmal SVT (supraventricular tachycardia) (HCC) - ICD9: 427.0, ICD10: I47.10 - stable [...] a swallowing study with PHYSICAL THERAPY at [facility]. 23. Nausea - ICD9: 787.02, ICD10: [...] which included preparing to see the patient, jwca-zj-yhxq patient care, completing clinical documentation, performing a medically appropriate examination, counseling and educating the patient/family/caregiver and ordering medications, tests, or procedures. Will Brannon MD documented in this encounterFostoria [facility]11-[facility] Evaluation + Plan note Diagnostic Tests Pending * Urine Culture 04/07/24 [facility] 11-10-2024 Hospital Discharge instructions Patient Education [...] foods again, start with small amounts of kxny-yi-zfpsxr, low- fat foods. These include apple sauce, [...] increase stomach acid. Don't use aspirin or wpxe-pqw-htxblyl pain and fever medicines, if possible. This includes nonsteroidal anti-inflammatory drugs (NSAIDs). Lose excess weight. Finish eating at least 2 hours before you go to bed or lie down. Raise the head of your bed. [phone] [employer]. [address] [place] [address]. All rights reserved. This information is not intended as a substitute for professional medical care. Always follow yourhealthcare professional's instructions. Follow Up Care 04/06/2024 23:37:12 With:WILL BRANNON MD Address: [address] [place] [address]- When:2-4 days [facility] 11-10-2024 Note Discharge Instructions Thank you for allowing [facility] to assist you with your healthcare needs. [...] WILL BRANNON MD When:Within 2-4 days Where:[address] [facility] [place] [address]- Allergies Mushrooms(Severe) Throat swelling Peanuts(Severe) Throat swelling [...] foods again, start with small amounts of uoxe-tl-hauvwu, low- fat foods. These include apple sauce, [...] increase stomach acid. Don't use aspirin or cuzq-unt-jywxkna pain and fever medicines, if possible. This includes nonsteroidal anti-inflammatory drugs (NSAIDs). Lose excess weight. Finish eating at least 2 hours before you go to bed or lie down. Raise the head of your bed. 7832-1929 [employer]. [address] [place] [address]. All rights reserved. This information is not intended as a substitute for professional medical care. Always follow yourhealthcare professional's instructions. Additional Information VACCINATE! IT SAVES LIVES! Members of the community who have not yet received the COVID-19 vaccine and would like to receive it can visit one of [facility] vaccine clinics. There are many vaccine clinic locations within the State. For locations and available times, please visit www.[email or web address].[place].gov/. It is important to note that some COVID mobile vaccine clinics are held outdoors and may be canceled in rainy or stormy conditions. To learn more about pediatric vaccinations (ages 5-11), we invite you to visit the [facility] webpage. https://www.[facility].org/pages/5260-Ruihq-Wzkopxradga-Jwvuubbopt-Mgtum-Yof stions.htmlTo learn more about the COVID-19 vaccine, we invite you to visit the CDC website for a list of frequently asked questions. https://www.cdc.gov/coronavirus/2019-ncov/vaccines/faq.html [facility] Patient Portal Access Instructions: Stay connected with your healthcare team and access your personal medical information anytime with the [facility] Patient Portal. If you would like a full copy of your medical records please contact the [facility] Medical Records Department Monday through Monday between 8a.m. and 4:30p.m. Please follow the directions below to access the portal: 1.Access the email account you provided upon registration to the [facility].2.Look for an invitation email from [facility].3.Open the email and access the invitation link: Accept Invitation to [facility]4.Fill in the required hartley to create your account. Sign into [email or web address] with your username and password that you [...] you will allow to register on the [facility] Patient Portal for access to your information. You can also access the [facility] Patient Portal on the Telelogos. Simply click on Health Records under cashcloudData and then click on the EyeEm logo. HOW TO SAFELY DISPOSE OF PRESCRIPTION [...] Call your local pharmacy or go to http://bit.Art of Defence/6I2Ea8k to find one close to you.3.Make use of household items: Use cat litter or old coffee grounds to dispose medications if other options arenot available. Mix your drugs with these household products, seal them in an airtight container andthrow it into the garbage. Call [facility]: [phone] to be sure your drugs can be [...] aware that I should contact my doctor. 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 Signature: Date/Time: Relationship to Patient: Witness Name/Signature: Date/Time: [facility] [id number] Note ORIGINAL EXAMINATION: CT OF THE ABDOMEN [...] Sign Date: 04/07/2024 1:03:32 AM Ordering Provider: [facility]11-05-2024 History of Present illness Narrative* Naty Haddad [...] planned. Naty Haddad LPN documented in this encounterFostoria City Hospital11-04-2024 History of Present illness Narrative* Mellisa Paul APRN.DIRECTOR LABOR STANDARDS - 04/01/2024 3:00 PM EST FOLLOW UP VISIT - ENDOSCOPY Debby Bailon [id number] REFERRING PHYSICIAN: Xavier Josue III [address] [facility] [address] Debby Bailon is a patient I am [...] as needed for worsening/no improvement. Mellisa Paul APRN.DIRECTOR LABOR STANDARDS documented in this encounterCleveland [id number] Nurse Note* May Coreas RN - 03/25/2024 9:46 AM EDT pt arrived to phase 2 awake/ resting on left side. SR up x 2, call light in reach. May Coreas RN [facility]10-28-[facility] Nurse Note* May Coreas RN - 03/25/2024 9:46 AM EDT pt arrived to phase 2 awake/ resting on left side. SR up x 2, call light in reach. Mya Coreas RN documented in this encounterFostoria City Hospital10-28-2024 Note* Discharge Instr - Nursing - May Coreas RN - 03/25/2024 9:43 AM EDT The patient received a copy of EGD discharge instructions that contain information for how to contact the physician who performed the procedure and when to seek medical care. [facility] Miscellaneous Notes* Discharge Instr - Nursing - May Coreas RN - 03/25/2024 9:43 AM EDT The patient received a copy of EGD discharge instructions that contain information for how to contact the physician who performed the procedure and when to seek medical care. documented in this encounterFostoria City Hospital10-28-2024 History and physical note * Xavier [...] Diagnosis Date Amputation of left great toe ([facility]) 06/25/2020 Arthritis started age 19 Bilateral leg edema 07/16/2018 Cervical radiculopathy 05/02/2013 Chronic pain 02/12/[address] ([facility]) 09/30/2021 Constipation due to outlet dysfunction 10/07/2021 Cyst of ovary 11/28/2011 Diabetes mellitus with peripheral vascular disease ([facility]) 03/29/2023 Diabetic eye exam ([facility]) 06/17/2016 Last done: 01/25/2017 Diabetic eye exam ([facility]) 06/17/2016 Last done: 03/08/2019 DJD (degenerative joint disease), thoracic DM (diabetes mellitus), secondary, uncontrolled, 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 Will monitor. Lipomeningocele, sacral level 09/12/2013 Lumbago 02/12/2015 Major depressive disorder, recurrent, mild ([facility]) 03/29/2023 Medicare annual wellness visit, subsequent 02/28/2018 [...] catheter irrigation daily or as needed. Insulin [place], Disposable, (COMFORT EZ PEN NEEDLES) 29 gauge [...] once daily. Rinse mouth after use. Insulin [place], Disposable, 32 gauge x 5/16 ndle Use [...] discussed with the Patient or Patient's Authorized Seed Cleaner Operator. Asapplicable, any other physician, advance practice provider, medical student, or other health professional student that will be observing or involved in the sensitive examination for educational or training purposes was discussed with the Patient or Authorized Seed Cleaner Operator. The Patient or Authorized Seed Cleaner Operator has agreed to proceed with the sensitive [...] DATE: March 25, 2024 TIME: 8:42 AM [facility] History and physical note* Xavier Josue [...] 05/02/2013 Chronic pain 02/12/[address] ([facility]) 09/30/2021 Constipation due to outlet dysfunction 10/07/2021 Cyst of ovary 11/28/2011 Diabetes mellitus with peripheral vascular disease ([facility]) 03/29/2023 Diabetic eye exam ([facility]) 06/17/2016 Last done: 01/25/2017 Diabetic eye exam ([facility]) 06/17/2016 Last done: 03/08/2019 DJD (degenerative joint disease), thoracic DM (diabetes mellitus), secondary, uncontrolled, 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 Elevated LFTs 03/11/2020 Essential hypertension 02/21/2019 Fatty [...] catheter irrigation daily or as needed. Insulin [place], Disposable, (COMFORT EZ PEN NEEDLES) 29 gauge [...] once daily. Rinse mouth after use. Insulin [place], Disposable, 32 gauge x 5/16 ndle Use [...] discussed with the Patient or Patient's Authorized Seed Cleaner Operator. Asapplicable, any other physician, advance practice provider, medical student, or other health professional student that will be observing or involved in the sensitive examination for educational or training purposes was discussed with the Patient or Authorized Seed Cleaner Operator. The Patient or Authorized Seed Cleaner Operator has agreed to proceed with the sensitive [...] 2024 TIME: 8:42 AM documented in this encounterFostoria City Hospital10-24-2024 History of Present illness Narrative* Kandace Alexander MD - 03/21/2024 2:54 PM EDT (Elements copied from my note dated December 20, 2023, have been reviewed and updated where appropriate, and all reflect current assessment and medical decision making from today's encounter, February) HISTORY OF PRESENT ILLNESS: Debby Bailon is a 43 year old female end of September 2023 started withUTI, wound up getting admitted to [facility] October 2023, was pretty sick from description. [...] 11/28/2011 Diabetes mellitus with peripheral vascular disease ([facility]) 03/29/2023 Diabetic eye exam ([facility]) 06/17/2016 Last done: 01/25/2017 Diabetic eye exam ([facility]) 06/17/2016 Last done: 03/08/2019 DJD (degenerative joint disease), thoracic DM (diabetes mellitus), secondary, uncontrolled, 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 Will monitor. Lipomeningocele, sacral level 09/12/2013 Lumbago 02/12/2015 Major depressive disorder, recurrent, mild ([facility]) 03/29/2023 Medicare annual wellness visit, subsequent 02/28/2018 [...] 02/12/2015 Panic attacks Paroxysmal SVT (supraventricular tachycardia) ([facility]) 07/03/2017 Per 48 Hr event monitor 06/30/2017 Primary insomnia 02/17/2016 S/P hernia repair 12/11/2017 Spina bifida ([facility]) 01/06/2016 Thyroid cyst 01/01/2018 Complex right sided cysts. US 12/2017, biopsy per Dr. Josue 01/23/2018 benign. Repeat US in a year. 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 Blood-Glucose Meter,Continuous (FREESTYLE ROSA 3 READER) [facility] DISPENSE ONE READER KIT. USE FOR CONTINUOUS GLUCOSE MONITORING. MULTIPLE INSULIN INJECTIONS. E11.9 Drainage Bag misc 1 Each every 2 weeks. sodium chloride irrig solution (NACL 0.9% IRRIGATION BOTTLE) To use for catheter irrigation daily or as needed. Insulin [place], Disposable, (COMFORT EZ PEN NEEDLES) 29 gauge x 1/2 One needle with each lantus shot once a day. Dx: E13.29 on insulin Insulin [place], Disposable, 32 gauge x 5/16 ndle Use [...] which included preparing to see the patient, lyss-jr-bduv patient care, completing clinical documentation, obtaining and/or reviewing separately obtained history, counseling and educating the patient/family/caregiver, independently interpretin g results (not separately reported), and communicating results to the patient/family/caregiver. Electronically Signed: Kandace Alexander MD March 21, 2024 documented in this encounterFostoria City Hospital10-21-2024 History of Present illness Narrative* Mikala Williamson [facility] - 03/18/2024 1:00 PM EDT Radiology [...] PATIENT PRESENTS WITH AN IMPLANTABLE OR ATTACHED CHIEF OF SAFETY AND PROTECTION: No RADIOLOGY DEPARTMENT: Ultrasound PERIPHERAL IV DATA: Not applicable SIGNED BY: Mikala Williamson RDMS March 18, 2024 2:10 PM documented in this encounterFostoria City Hospital10-09-2024 History of Present illness Narrative* Will [...] counseling center for her anxiety. * Denae Barraza MA - 03/04/2024 3:28 PM EDT Scan on 03/03/2024 11:45 PM by Provider, CAMDEN Navarro: Consultation - Emergency Medicine Do you need patient to follow up? Denae aBrraza MA documented in this encounterFostoria City Hospital10-08-2024 Telephone encounter Note * Telephone Encounter - Naty Haddad LPN - 03/05/2024 9:28 AM EDT Called patient. No answer- left message to call clinic for message and MyChart message sent. Naty Haddad LPN [facility]10-08-2024 Miscellaneous Notes* Telephone Encounter - Naty [...] 1:22 PM EDT Received visit notes from [facility] from end of January with lab results. Scanned to [facility] via Split[employer]. Please review and advise. Naty Haddad LPN documented in this encounterFostoria City Hospital10-07-2024 Telephone encounter Note * Telephone Encounter - Cory Box PA-C - 03/04/2024 6:02 PM EDT It appears to be skin contamination, I recommend new urine culture with urine collected fromSPT I placed new order for urine culture JENIFFER Gaona, [place] [facility]10-07-[facility] History of Present illness Narrative* Xavier [...] Diagnosis Date Amputation of left great toe ([facility]) 06/25/2020 Arthritis started age 19 Bilateral leg edema 07/16/2018 Cervical radiculopathy 05/02/2013 Chronic pain 02/12/[address] ([facility]) 09/30/2021 Constipation due to outlet dysfunction 10/07/2021 Cyst of ovary 11/28/2011 Diabetes mellitus with peripheral vascular disease ([facility]) 03/29/2023 Diabetic eye exam ([facility]) 06/17/2016 Last done: 01/25/2017 Diabetic eye exam ([facility]) 06/17/2016 Last done: 03/08/2019 DJD (degenerative joint disease), thoracic DM (diabetes mellitus), secondary, uncontrolled, 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 Elevated LFTs 03/11/2020 Essential hypertension 02/21/2019 Fatty [...] INJECTIONS. Blood-Glucose Meter,Continuous (FREESTYLE ROSA 3 READER) [facility] DISPENSE ONE READER KIT. USE FOR CONTINUOUS [...] catheter irrigation daily or as needed. Insulin [place], Disposable, (COMFORT EZ PEN NEEDLES) 29 gauge [...] once daily. Rinse mouth after use. Insulin [place], Disposable, 32 gauge x 5/16 ndle Use [...] Negative Keiry Grant, RN documented in this encounterFostoria City Hospital10-04-2024 Telephone encounter Note * Telephone Encounter - Naty Haddad LPN - 03/01/2024 1:22 PM EDT Received visit notes from [facility] from end of January with lab results. Scanned to [facility] via Split[employer]nd. Please review and advise. Naty Haddad LPN [facility]10-04-[facility] Telephone encounter Note* Telephone Encounter - Josesito Verdin LPN - 03/01/2024 12:18 PM EDT Results and message faxed to Urology at [place] location [phone]. Josesito Verdin LPN [facility]10-04-2024 Miscellaneous Notes* Telephone Encounter - Josesito Verdin LPN - 03/01/2024 12:18 PM EDT Results and message faxed to Urology at [place] location [phone]. Josesito Verdin LPN * Telephone Encounter - Netta Higgins PA-C - 03/01/2024 11:55 AM EDT Needs to be forwarded to patient's urologist. Thanks. Netta Higgins PA-C * Telephone Encounter - Josesito Verdin LPN - 03/01/2024 11:10 AM EDT Received fax from [facility] with pt's urine culture results. They advise that pt was not treated with antibiotic d/t pt's complicated UTI's. They are deferring treatment to pcp. Susceptibility results have been included. Results on pcp's desk for review. Josesito Verdin LPN documented in this encounterFostoria City Hospital10-04-2024 Telephone encounter Note * Telephone Encounter - Netta Higgins PA-C - 03/01/2024 11:55 AM EDT Needs to be forwarded to patient's urologist. Thanks. Netta Higgins PA-C [facility]-04-[facility] Telephone encounter Note* Telephone Encounter - Josesito Verdin LPN - 03/01/2024 11:10 AM EDT Received fax from [facility] with pt's urine culture results. They advise that pt was not treated with antibiotic d/t pt's complicated UTI's. They are deferring treatment to pcp. Susceptibility results have been included. Results on pcp's desk for review. Josesito Verdin LPN [facility]10-[facility] History of Present illness Narrative* Naty Haddad [...] planned. Naty Haddad LPN documented in this encounterFostoria City Hospital09-30-2024 Hospital Discharge instructions Patient Education 02/26/2024 [...] foods again, start with small amounts of katf-fw-ihuaco, low- fat foods. These include apple sauce, [...] increase stomach acid. Don't use aspirin or foae-yqy-lpdebzu pain and fever medicines, if possible. This includes nonsteroidal anti-inflammatory drugs (NSAIDs). Lose excess weight. Finish eating at least 2 hours before you go to bed or lie down. Raise the head of your bed. 2247-1861 [employer]. [address] [place] [address], [place] [address]. All rights reserved. This information is not intended as a substitute for professional medical care. Always follow yourhealthcare professional's instructions. Follow Up Care 02/25/2024 23:18:48 With:your urologist Address: When:2-4 days [facility] 09-30-2024 Note Discharge Instructions Thank you for [...] foods again, start with small amounts of nkol-mi-ypxyje, low- fat foods. These include apple sauce, [...] increase stomach acid. Don't use aspirin or qchx-evl-ugyolqe pain and fever medicines, if possible. This includes nonsteroidal anti-inflammatory drugs (NSAIDs). Lose excess weight. Finish eating at least 2 hours before you go to bed or lie down. Raise the head of your bed. 4737-1425 [employer] [address] [place] [address], [place] [address]. All rights reserved. This information is not intended as a substitute for professional medical care. Always follow yourhealthcare professional's instructions. Additional Information VACCINATE! IT SAVES LIVES! Members of the community who have not yet received the COVID-19 vaccine and would like to receive it can visit one of [facility] vaccine clinics. There are many vaccine clinic locations within the [facility]. For locations and available times, please visit www.[email or web address].[place].gov/. It is important to note that some COVID mobile vaccine clinics are held outdoors and may be canceled in rainy or stormy conditions. To learn more about pediatric vaccinations (ages 5-11), we invite you to visit the [facility] webpage. https://www.[facility].org/pages/8216-Cbhin-Zeybufqimnk-Eorsduhhpv-Yqlor-Zan stions.htmlTo learn more about the COVID-19 vaccine, we invite you to visit the CDC website for a list of frequently asked questions. https://www.cdc.gov/coronavirus/2019-ncov/vaccines/faq.html [facility] Patient Portal Access Instructions: Stay connected with your healthcare team and access your personal medical information anytime with the [facility] Patient Portal. If you would like a full copy of your medical records please contact the [facility] Medical Records Department Monday through Monday between 8a.m. and 4:30p.m. Please follow the directions below to access the portal: 1.Access the email account you provided upon registration to the hospital.2.Look for an invitation email from [facility].3.Open the email and access the invitation link: Accept Invitation to [facility]4.Fill in the required hartley to create your account. Sign into [email or web address] with your username and password that you [...] you will allow to register on the [facility] Patient Portal for access to your information. You can also access the [facility] Patient Portal on the Telelogos. Simply click on Health Records under [employer] and then click on the [facility] logo. [...] Call your local pharmacy or go to http://SchoolChapters.Art of Defence/7T2Ky6t to find one close to you.3.Make use of household items: Use cat litter or old coffee grounds to dispose medications if other options arenot available. Mix your drugs with these household products, seal them in an airtight container andthrow it into the garbage. Call [facility]: [phone] to be sure your drugs can be [...] aware that I should contact my doctor. 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 Signature: Date/Time: Relationship to Patient: Witness Name/Signature: Date/Time: [facility]09-29-2024 Evaluation + Plan note Diagnostic Tests Pending * Urine Culture 02/25/24 [facility] 09-07-2024 Hospital Discharge instructions Patient Education 02/03/2024 01:14:23 [...] If needed, more treatment may be started. 2125-0270 [employer] [address] [place] [address]. All rights reserved. This information is not intended as a substitute for professional medical care. Always follow yourhealthcare professional's instructions. Follow Up Care 02/02/2024 23:35:02 With:WILL BRANNON MD Address: [address] [place] [address]- When:2-4 days [facility] 09-07-2024 Note Discharge Instructions Thank you for allowing [facility] to assist you with your healthcare needs. The following is importantdischarge information regarding your hospital visit. Diagnosis from Today's Visit Abdominal pain What to Do Next Instructions from Your Care Team No qualifying data available. Post Acute Orders No qualifying data available. You Need to Schedule the Following Appointments Follow Up with WILL BRANNON MD When:Within 2-4 days Where:[address] [facility] [place] [address]- Allergies Mushrooms(Severe) Throat swelling Peanuts(Severe) Throat swelling [...] When Why Instructions Last Dose New acetaminophen-hydrocodone (Adelanto 325- 5 mg oral tablet) 1 tab(s) [...] If needed, more treatment may be started. 9572-2673 [employer]. [address] [place] [address], [place] [address]. All rights reserved. This information is not intended as a substitute for professional medical care. Always follow yourhealthcare professional's instructions. Additional Information VACCINATE! IT SAVES LIVES! Members of the community who have not yet received the COVID-19 vaccine and would like to receive it can visit one of [facility] vaccine clinics. There are many vaccine clinic locations within the [facility]. For locations and available times, please visit www.[email or web address].[place].gov/. It is important to note that some COVID mobile vaccine clinics are held outdoors and may be canceled in rainy or stormy conditions. To learn more about pediatric vaccinations (ages 5-11), we invite you to visit the [facility] webpage. [email or web address]/[email or web address]-[email or web address] stions.htmlTo learn more about the COVID-19 vaccine, we invite you to visit the CDC website for a list of frequently asked questions. https://www.cdc.gov/coronavirus/2019-ncov/vaccines/faq.html [facility] Patient Portal Access Instructions: Stay connected with your healthcare team and access your personal medical information anytime with the [facility] Patient Portal. If you would like a full copy of your medical records please contact the [facility] Medical Records Department Monday through Monday between 8a.m. and 4:30p.m. Please follow the directions below to access the portal: 1.Access the email account you provided upon registration to the [facility].2.Look for an invitation email from [facility].3.Open the email and access the invitation link: Accept Invitation to [facility]4.Fill in the required hartley to create your account. Sign into [email or web address] with your username and password that you [...] you will allow to register on the [facility] Patient Portal for access to your information. You can also access the [facility] Patient Portal on the [employer] robert. Simply click on Health Records under [employer] and then click on the EyeEm logo. HOW TO SAFELY DISPOSE OF PRESCRIPTION [...] Call your local pharmacy or go to http://bit.Art of Defence/9Q5Pd4s to find one close to you.3.Make use of household items: Use cat litter or old coffee grounds to dispose medications if other options arenot available. Mix your drugs with these household products, seal them in an airtight container andthrow it into the garbage. Call [facility]: [phone] to be sure your drugs can be [...] aware that I should contact my doctor. 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 Signature: Date/Time: Relationship to Patient: Witness Name/Signature: Date/Time: [facility] [id number] Note ORIGINAL EXAMINATION: CT OF THE ABDOMEN [...] Additional findings as above. Interpreted by: Stephan Davies Preliminary Report By: Stephan Davies Electronically signed By Stephan Davies Dictated Date: 02/03/2024 12:49:48 AM Prelim Date: 02/03/2024 1:00:11 AM Sign Date: 02/03/2024 1:00:11 AM Ordering Provider: LUDWIG [facility]09-06-2024 Evaluation + Plan note Diagnostic Tests Pending * Urine Culture 02/02/24 [facility] 09-04-2024 Telephone encounter Note* Telephone Encounter [...] Devin George NP who she saw for [facility] F/U. Chanda Ray RN January 31, 2024 5:31 PM [facility]09-04-2024 Miscellaneous Notes* Telephone Encounter - Chanda [...] Devin George NP who she saw for [facility] F/U. Chanda Ray RN January 31, 2024 5:31 PM documented in this encounterFostoria City Hospital09-03-2024 History of Present illness Narrative* Naty [...] planned. Naty Haddad LPN documented in this encounterFostoria City Hospital08-20-2024 History of Present illness Narrative* Taya Lane MA - 01/16/2024 4:06 PM EDT Images from the original note were not included. * Ramana Bourgeois RN - 01/16/2024 3:54 PM EDT DIABETES CARE AND EDUCATION VISIT Location: [place] Type of visit: In person individual PATIENT'S [...] via access to shared medical record. SIGNATURE: Ramana Bourgeois RN PATIENT NAME: Debby Bailon DATE: January 16, 2024 TIME: 3:54 PM documented in this encounterFostoria City Hospital08-07-2024 Instructions* Patient Instructions* Araceli Torres PA-C - 01/03/2024 4:36 PM EDT Continue lyrica 75mg twice daily Take tylenol as needed for headaches Follow up in 6 months documented in this encounterFostoria City Hospital08-07-2024 History of Present illness Narrative* Araceli Torres PA-C - 01/03/2024 4:00 PM EDT Images from the original note were not included. [facility] Neurology Follow up CC: [...] A1c down. CUETO almost gone. Hospitalized all thoroctober for kidney infection. Splenic infarct Current Headache [...] 02/12/2015: Chronic pain 09/30/2021: Colostomy in place ([facility]) 10/07/2021: Constipation due to outlet dysfunction 11/28/2011: Cyst of ovary 03/29/2023: Diabetes mellitus with peripheral vascular disease ([facility]) 06/17/2016: Diabetic eye exam ([facility]) Comment: Last done: 01/25/2017 06/17/2016: Diabetic eye exam (HCC) Comment: Last done: 03/08/2019 No date: DJD (degenerative joint disease), thoracic 12/05/2017: DM (diabetes mellitus), secondary, uncontrolled, w/renal complications No date: Dysthymic disorder Comment: Depression (non-psychotic), sees SURVEYOR'S 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 03/11/2020: Elevated LFTs 02/21/2019: Essential hypertension 03/11/2020: Fatty liver Comment: US 10/201909/22/2021: History of Manley's palsy 01/04/2016: History of kidney stones 11/28/2011: History of recurrent UTIs 01/04/2016: Hydronephrosis, right 10/07/2021: Hypomagnesemia 04/08/2021: Hyponatremia Comment: Ranges 133-137. Will monitor. 09/12/2013: Lipomeningocele, sacral level 02/12/2015: Lumbago 03/29/2023: Major depressive disorder, recurrent, mild ([facility]) 02/28/2018: Medicare annual wellness visit, subsequent Comment: [...] Panic attacks 07/03/2017: Paroxysmal SVT (supraventricular tachycardia) ([facility]) Comment: Per 48 Hr event monitor 06/30/2017 [...] INJECTIONS. Blood-Glucose Meter,Continuous (FREESTYLE ROSA 3 READER) [facility] DISPENSE ONE READER KIT. USE FOR CONTINUOUS [...] catheter irrigation daily or as needed. Insulin [place], Disposable, (COMFORT EZ PEN NEEDLES) 29 gauge [...] once daily. Rinse mouth after use. Insulin [place], Disposable, 32 gauge x 5/16 ndle Use [...] which included preparing to see the patient, kqom-hy-uzoy patient care, completing clinical documentation, obtaining and/or reviewing separately obtained history, performing a medically appropriate examination, counseling and educating the pat ient/family/caregiver, and ordering medications, tests, or procedures. PDMP website checked and validated. All prescriptions have been APPROPRIATELY filled. No suspiciousactivity was identified. 01/03/2024 by CAMDEN Pederson PA-C General Neurology [address] [place]. [address] Appointment: [phone] 12/28/2023 [facility] Physical Health Summary [...] population and warrants attention documented in this encounterFostoria City Hospital08-06-2024 History of Present illness Narrative* Naty [...] planned. Naty Haddad LPN documented in this encounterFostoria City Hospital08-06-2024 History of Present illness Narrative* Josesito Verdin LPN - 01/02/2024 1:31 PM EDT Scan on 01/02/2024 12:58 PM by Provider, CAMDEN Navarro: Cardiac Procedure documented in this encounterFostoria City Hospital07-25-2024 Telephone encounter Note * Telephone Encounter - Taya Lane MA - 12/21/2023 8:36 AM EDT Request for office visit notes returned. Confirmation received. Taya Lane MA [facility]07-25-2024 Miscellaneous Notes* Telephone Encounter - Taya Lane MA - 12/21/2023 8:36 AM EDT Request for office visit notes returned. Confirmation received. Taya Lane MA documented in this encounterFostoria City Hospital07-16-2024 Telephone encounter Note * Telephone Encounter - Araseli Sanchez - 12/12/2023 4:43 PM EDT Spoke with patient and scheduled for 12/19 @ 10:00 AM. Araseli Sanchez [facility]07-16-2024 Miscellaneous Notes* Telephone Encounter - Araseli [...] AM EDT Spoke to medical records at [facility] and was told to fax request. Sent to [phone]. Will follow up and notify when records have been scanned into chart * Telephone Encounter - Rose Pierre LPN - 12/11/2023 10:12 AM EDT Amarilis, yes, you need to follow up on this Rose Pierre LPN * Telephone Encounter - Amarilis Mead - 12/11/2023 9:09 AM EDT Has someone called [facility] for the hematology and urology note? Do I need to follow up on this? * Telephone Encounter - Araceli Lei LPN - 12/06/2023 9:35 AM EDT Only a discharge summary is scanned in. Patient was seen by hem/onc at [facility]- will need that note, urology note (since they discovered splenic infarct) and CT results or whatever imaging showed splenic infarct. Araceli Lei LPN * Telephone Encounter - Devin George APRN.CNP - 12/05/2023 9:35 AM EDT Hospital discharge paperwork from [facility] received sent to be scanned into patient chart. [...] that is on file. documented in this encounterFostoria City Hospital07-16-2024 Telephone encounter Note * Telephone Encounter - Rose Pierre LPN - 12/12/2023 4:06 PM EDT Please schedule appt. With OLIVIA Alvarez LPN [facility]07-16-2024 Telephone encounter Note* Telephone Encounter - Amarilis Mead - 12/12/2023 3:23 PM EDT HemOnc and Urology Consult notes received. CT results included in HemOnc consult note. Uploaded to patient's chart. [facility]07-15-2024 Telephone encounter Note* Telephone Encounter - Brittney Zafar RN - 12/11/2023 1:28 PM EDT Patient returned phone call and was informed of message below. She verbalized understanding. [facility]07-15-2024 Miscellaneous Notes* Telephone Encounter - Brittney [...] 10:09 AM EDT New Rx signed JENIFFER Gaona MT, PA-C * Telephone Encounter - Ericka Guthrie LPN - 12/06/2023 3:37 PM EDT Call from [place] at [facility]. They are asking for two separate scripts, [...] 12/06/2023 3:06 PM EDT Called [place] At [facility]. No answer- left message. What specifically do they need order to state since order that Cory provided yesterday was not sufficient? How many bags of each covered per month? Naty Haddad LPN * Telephone Encounter - Nasrin Medina MA - 12/06/2023 10:15 AM EDT Received a call from [place] at [facility]. She received an Rx for generic drainage bag. The patient is wanting leg bags and night bags. The Rx needs to be specific. Please send new order. documented in this encounterFostoria City Hospital07-15-2024 Telephone encounter Note * Telephone Encounter - Amarilis Mead - 12/11/2023 10:32 AM EDT Spoke to medical records at [facility] and was told to fax request. Sent to [phone]. Will follow up and notify when records have been scanned into chart [facility]07-15-2024 Telephone encounter Note* Telephone Encounter - Rose Pierre LPN - 12/11/2023 10:12 AM EDT Amarilis, yes, you need to follow up on this Rose Pierre LPN [facility]07-15-2024 Telephone encounter Note* Telephone Encounter - Naty Haddad LPN - 12/11/2023 10:11 AM EDT Called patient. No answer- left message for patient to call clinic. Cory sent order. Naty Haddad LPN [facility]07-15-2024 Telephone encounter Note* Telephone Encounter - Cory Box PA-C - 12/11/2023 10:09 AM EDT New Rx signed JENIFFER Gaona, ALCAMDEN [facility]07-15-2024 Telephone encounter Note* Telephone Encounter - Amarilis Mead - 12/11/2023 9:09 AM EDT Has someone called [facility] for the hematology and urology note? Do I need to follow up on this? [facility]07-12-[facility] Telephone encounter Note* Telephone Encounter - Michele [...] going to be scheduled with the new life science technician at [facility]. She has seen endocrinology at [place]. They changed her insulin regimen: 20u at [...] of BS and A1C goals for surgery. [facility]07-12-2024 Miscellaneous Notes* Telephone Encounter - Michele [...] going to be scheduled with the new life science technician at [facility]. She has seen endocrinology at [place]. They changed her insulin regimen: 20u at [...] was seen on 12/05 by endocrinology at [facility]. Pt would like to discuss the details of the appt and also, possibly schedule surgery w Dr. Sweeney. Patient requesting return call ? Yes documented in this encounterFostoria City Hospital07-12-2024 Telephone encounter Note * Telephone Encounter - Kathy Herrera - 12/08/2023 12:31 PM EDT General Call Caller : Pt Contact Reason for Call : Pt was seen on 12/05 by endocrinology at [facility]. Pt would like to discuss the details of the appt and also, possibly schedule surgery w Dr. Sweeney. Patient requesting return call ? Yes [facility]07-12-2024 Telephone encounter Note* Telephone Encounter - [...] appointment which was needed for surgical clearance. [facility]07-12-2024 Miscellaneous Notes* Telephone Encounter - Michele [...] for surgical clearance. * Telephone Encounter - Asher Leatharomi - 10/31/2023 8:19 AM EDT General Call Caller : pt Contact Reason for Call : Pt would like to discuss surgery. Pt missed appt after being admitted to hospitalthe night before. Patient requesting return call ? Yes documented in this encounterFostoria City Hospital07-10-2024 Telephone encounter Note * Telephone Encounter - Ericka Guthrie LPN - 12/06/2023 3:37 PM EDT Call from [place] at [facility]. They are asking for two separate scripts, Escripts OK. They aresuggesting we order a quantity of 4 per month and they will dispense whatever the maximum amount allowed is per month from insurance (typically 2 or 3) and patient could purchase additional OOP if she likes. Orders pended for escript. Ericka Guthrie LPN [facility]07-10-2024 Telephone encounter Note* Telephone Encounter - Naty Haddad LPN - 12/06/2023 3:06 PM EDT Called [place] At [facility]. No answer- left message. What specifically do they need order to state since order that Cory provided yesterday was not sufficient? How many bags of each covered per month? Naty Haddad LPN [facility]07-10-2024 Telephone encounter Note* Telephone Encounter - Estelita Billingsley - 12/06/2023 2:39 PM EDT Original phone note is dated 12/03 -Dr. Brannon as provider. [facility] Work Phone: [phone] Miscellaneous Notes* Telephone Encounter - Estelita Billingsley [...] to schedule with patient. documented in this encounterFostoria City Hospital07-10-2024 Telephone encounter Note * Telephone Encounter - Araceli Lei LPN - 12/06/2023 2:32 PM EDT Please see original phone note regarding referral and need for records. Araceli Lei LPN [facility]07-10-2024 Telephone encounter Note* Telephone Encounter - Estelita Billingsley - 12/06/2023 2:23 PM EDT Please see leticia referral and advise. Was informed by Diana that diagnosis should be scheduled as thrombosis. Okay to schedule with patient. [facility]07-10-2024 Telephone encounter Note* Telephone Encounter - Nilda Underwood APRN.DIRECTOR LABOR STANDARDS - 12/06/2023 2:02 PM EDT Patient's request [...] pharmacy and notify patient. Nilda Underwood APRN.CNP [facility]07-10-2024 Miscellaneous Notes* Telephone Encounter - Nilda [...] and states she received a call from [facility] Medicare does not cover the Dexcom but will cover the Freestyle sensors. Patient needs new Rx sent to [facility]. Patient would like a call when sent. documented in this encounterFostoria City Hospital07-10-2024 Telephone encounter Note * Telephone Encounter - Fawn Gutiérrez MA - 12/06/2023 1:31 PM EDT Patient calling and states she received a call from [facility] Medicare does not cover the Dexcom but will cover the Freestyle sensors. Patient needs new Rx sent to [facility]. Patient would like a call when sent. [facility]07-10-2024 Instructions* Patient Instructions* Nilda Underwood APRN.CNP [...] glucose does not improve. documented in this encounterFostoria City Hospital07-10-2024 Telephone encounter Note * Telephone Encounter - Nasrin Medina MA - 12/06/2023 10:15 AM EDT Received a call from [place] at [facility]. She received an Rx for generic drainage bag. The patient is wanting leg bags and night bags. The Rx needs to be specific. Please send new order. [facility]07-10-[facility] History of Present illness Narrative* Nilda Underwood APRN.CNP - 12/06/2023 10:15 AM EDT OFFICE VISIT PROGRESS NOTE CC Debby Bailon is a pleasant 43 year old who presents today with her for blood sugar review, insulin dose adjust. HPI PATIENT OF PEPPER STORY, ENDOCRINE Diagnosed with diabetes mellitus type II, ~ 2013 Last endocrine OV 11/02/2020 with ENDO DIRECTOR LABOR STANDARDS, Kirsten Story HPI 12/06/2023 Not seen in ENDO for [...] issues in the past month 2 weeks [facility] checked A1C 10.5% Endorses meal plan as below, but admits when her depression kicks in will eat whatever Then feels bad about her failure. Sts I have been really following my plan for the past month Is going to scheduled with ENDO WELDING MACHINE TENDER here in [place] in December Sts follows DM diet and portions meals Breakfast: if eats, will have a breakfast sandwich - buys frozen heats in microwave Lunch: lean cuisine meal Dinner: portioned, smaller meals - meatloaf, mac and cheese and corn OR chicken OR pork chops OR hamburger helper Occ will eat out but not regularly - singaporean - taco Snacks: sugar free items Drink: water only CURRENT DM MEDS FIASP 18-18-18 plus SS#2 (pt using 15 plus SS # 2 - sts dr cavazos office changed her prandial) LANTUS 33 units SMBG Type of Monitor: Other Frequency of Monitoring: not often times a day BG Values: Breakfast: 150-200 average 170 Lunch: 200 Dinner: 200-250 Bed-time: 200-250 Values over past week: Highest ; Lowest Hypoglycemia: no Diet: No specific diet regimen Exercise: tries DM REVIEW OF SYSTEMS Last Eye Exam [...] < > -- < > 18 -- -- -- 38* UCRR 59.2 -- 89.8 [...] Diagnosis Date Amputation of left great toe ([facility]) 06/25/2020 Arthritis started age 19 Bilateral leg edema 07/16/2018 Cervical radiculopathy 05/02/2013 Chronic pain 02/12/[address] ([facility]) 09/30/2021 Constipation due to outlet dysfunction 10/07/2021 Cyst of ovary 11/28/2011 Diabetes mellitus with peripheral vascular disease ([facility]) 03/29/2023 Diabetic eye exam ([facility]) 06/17/2016 Last done: 01/25/2017 Diabetic eye exam ([facility]) 06/17/2016 Last done: 03/08/2019 DJD (degenerative joint disease), thoracic DM (diabetes mellitus), secondary, uncontrolled, 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 Will monitor. Lipomeningocele, sacral level 09/12/2013 Lumbago 02/12/2015 Major depressive disorder, recurrent, mild ([facility]) 03/29/2023 Medicare annual wellness visit, subsequent 02/28/2018 [...] catheter irrigation daily or as needed. Insulin [place], Disposable, (COMFORT EZ PEN NEEDLES) 29 gauge [...] once daily. Rinse mouth after use. Insulin [place], Disposable, 32 gauge x 5/16 ndle Use [...] A1C Nilda Underwood CNP documented in this encounterFostoria City Hospital07-10-2024 Telephone encounter Note * Telephone Encounter - Araceli Lei LPN - 12/06/2023 9:35 AM EDT Only a discharge summary is scanned in. Patient was seen by hem/onc at [facility]- will need that note, urology note (since they discovered splenic infarct) and CT results or whatever imaging showed splenic infarct. Araceli Lei LPN [facility]07-09-2024 History of Present illness Narrative* Cory Box PA-C - 12/05/2023 6:28 PM EDT Images from the original note were not included. [facility] EST PATIENT CLINIC NOTE SERVICE DATE: December [...] catheter irrigation daily or as needed. Insulin [place], Disposable, (COMFORT EZ PEN NEEDLES) 29 gauge [...] once daily. Rinse mouth after use. Insulin [place], Disposable, 32 gauge x 5/16 ndle Use once daily with Victoza Drainage Bag misc 1 Each every 2 weeks. COMPOUNDED PRESCRIPTION Stoma catheter tube. DX: Qo5.4 and K59.2 (Patient not taking: Reported on 12/05/2023) PAST MEDICAL HISTORY: PAST MEDICAL HISTORY Diagnosis Date Amputation of left great toe ([facility]) 06/25/2020 Arthritis started age 19 Bilateral leg edema 07/16/2018 Cervical radiculopathy 05/02/2013 Chronic pain 02/12/[address] ([facility]) 09/30/2021 Constipation due to outlet dysfunction 10/07/2021 Cyst of ovary 11/28/2011 Diabetes mellitus with peripheral vascular disease ([facility]) 03/29/2023 Diabetic eye exam ([facility]) 06/17/2016 Last done: 01/25/2017 Diabetic eye exam ([facility]) 06/17/2016 Last done: 03/08/2019 DJD (degenerative joint disease), thoracic DM (diabetes mellitus), secondary, uncontrolled, 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 Elevated LFTs 03/11/2020 Essential hypertension 02/21/2019 Fatty [...] 02/12/2015 Panic attacks Paroxysmal SVT (supraventricular tachycardia) ([facility]) 07/03/2017 Per 48 Hr event monitor 06/30/2017 [...] bladder. Patient reports she was seen at [facility] in October and neither had 18 FR [...] with CAMDEN Hillman LPN documented in this encounterFostoria City Hospital07-09-2024 Telephone encounter Note * Telephone Encounter - Devin George APRN.PEPPER - 12/05/2023 9:35 AM EDT Hospital discharge paperwork from [facility] received sent to be scanned into patient chart. [facility]07-08-2024 Telephone encounter Note* Telephone Encounter - Araceli Lei LPN - 12/04/2023 4:38 PM EDT Will need records to accompany referral and diagnosis, prior to being scheduled. 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 [facility]07-08-[facility] History of Present illness Narrative* Devin George APRN.PEPPER - 12/04/2023 3:58 PM EDT Chief Complaint Patient presents with: [facility] F/U [facility] Debby Bailon is a 43 year old female who presents here today for Above Complaints.. Patient presents for hospital follow up. Patient was in [place] for UTI, Pyelonephritis, C Diff andSplenic infarct from 11/18-11/22. Patient was discharged on eliquis and vancomycin from [place] as well as receiving antibiotics for the [...] vascular disease (HCC) 03/29/2023 Diabetic eye exam ([facility]) 06/17/2016 Last done: 01/25/2017 Diabetic eye exam ([facility]) 06/17/2016 Last done: 03/08/2019 DJD (degenerative joint disease), thoracic DM (diabetes mellitus), secondary, uncontrolled, 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 Will monitor. Lipomeningocele, sacral level 09/12/2013 Lumbago 02/12/2015 Major depressive disorder, recurrent, mild ([facility]) 03/29/2023 Medicare annual wellness visit, subsequent 02/28/2018 [...] 02/12/2015 Panic attacks Paroxysmal SVT (supraventricular tachycardia) ([facility]) 07/03/2017 Per 48 Hr event monitor 06/30/2017 [...] catheter irrigation daily or as needed. Insulin [place], Disposable, (COMFORT EZ PEN NEEDLES) 29 gauge [...] once daily. Rinse mouth after use. Insulin [place], Disposable, 32 gauge x 5/16 ndle Use [...] -Follows with urology, appt 12/04 Devin George APRN.DIRECTOR LABOR STANDARDS [facility] Discharge instructions Patient Education 11/22/2023 14:43:39 Clostridioides Difficile Infection, Kcqy-uk-Itxn Clostridioides Difficile Infection Clostridioides difficile, or C. [...] Follow these instructions at home: Medicines Take csdn-psw-ffmdsnq and prescription medicines only as told by [...] include: ?Bananas. ?Applesauce. ?Rice. ?Low-fat (lean) meats. ?[place]. ?Crackers. Follow your doctor's instructions on how [...] 03/12/2010 Document Revised: 10/09/2019 Document Reviewed: 10/09/2019 [employer] Patient Education 2020 [employer]. Follow Up Care 11/18/2023 02:07:59 With:WILL BRANNON MD Address: [address] [place], [place] [address]- When:1-2 days Comments:Please call the office to schedule a follow-up appointment. With:KRISTINE MOON MD Address: [address] [facility] [place] [address]- [phone] When: Unknown Comments:Follow-up in 1 to 2 weeks [facility] 06-26-2024 Note Discharge Instructions Thank you for allowing [facility] to assist you with your healthcare needs. The following is importantdischarge information regarding your hospital visit. Your Care Team WILL BRANNON MD What to do next Follow Up Appointments Follow Up with WILL BRANNON MD When:Within 1-2 days Where:[address], [place] [id number]- Additional Information: Please call the office to schedule a follow-up appointment. Follow Up with KRISTINE MOON MD Where:[address] [facility] [place] [address]- [phone] Additional Information: Follow-up in 1 to 2 [...] days after discharge, please call [facility] at [phone]. Discharge Event Monitor Instructions - Ordered -- 11/22/23 14:40:45 EDT, You have been ordered mobile outpatient telemetry. You should receive a device in the mail with further instructions. If you have not received a device within 7 days after discharge, please call [facility] at [phone]. Post Acute Orders No qualifying data available. [...] Two (2) times a day Pickup at [facility] New sulfamethoxazole-trimethoprim (Bactrim DS 800 mg-160 mg oral tablet) 1 tab(s) by mouth Two (2) times a day Duration: 2 Days Pickup at [facility] New vancomycin (vancomycin 25 mg/ mL ORAL solution) 5 Milliliter by mouth Four (4) times a day Duration: 14 Days Pickup at [facility] Unchanged atorvastatin (atorvastatin 80 mg [...] by mouth Daily at bedtime Pharmacy Information [facility]: [address] [place], [place] [phone] Please take this list to your next [...] Follow these instructions at home: Medicines Take pplh-gam-azogqjs and prescription medicines only as told by [...] ? Rice. ? Low-fat (lean) meats. ? [place]. ? Crackers. Follow your doctor's instructions on [...] 03/12/2010 Document Revised: 10/09/2019 Document Reviewed: 10/09/2019 [employer] Patient Education 2019 [employer]. Additional Information VACCINATE! IT SAVES LIVES! Members of the community who have not yet received the COVID-19 vaccine and would like to receive it can visit one of [facility] vaccine clinics. There are many vaccine clinic locations within the [facility]. For locations and available times, please visit https://gettheshot.coronavirus.[place].gov/. It is important to note that some COVID mobile vaccine clinics are held outdoors and may be canceled in rainy or stormy conditions. To learn more about pediatric vaccinations (ages 5-11), we invite you to visit the [facility] webpage. https://www.[facility].org/pages/4254-[place]-Kewinmqjrep-Vwyndvsrmf-Hfarf-Nro stions.htmlTo learn more about the COVID-19 vaccine, we invite you to visit the CDC website for a list of frequently asked questions.https://www.cdc.gov/coronavirus/2019-ncov/vaccines/faq.html [facility] Patient Portal Access Instructions: Stay connected with your healthcare team and access your personal medical information anytime with the [facility] Patient Portal. Please follow the directions below to create your [facility] account: 1.Access the email account you provided upon registration to the hospital/physician office.2.Look for an invitation email from [facility].3.Open the email and access the invitation link: AcceptInvitation to [facility].4.Fill in the required hartley to create your account. To access your account, visit [email or web address]. Click the blue button labeled Access Patient [...] who you will allowto register on the [facility] [facility] Patient Portal for access to your information. You can also access the [facility] Patient Portal on the [facility] robert. Simply click on Patient Portal and then log into your account. If you would like to receive a full copy of your medical records, please contact the [facility] Medical Records Department by calling [phone], Monday through Monday between 8 a.m. and [...] Call your local pharmacy or go to http://SchoolChapters.Art of Defence/4F2Zo6k to find one close to you.3.Make use of household items: Use cat litter or old coffee grounds to dispose medications if other options arenot available. Mix your drugs with these household products, seal them in an airtight container andthrow it into the garbage. Call [facility]: [phone] to be sure your drugs can be [...] Signatures Patient Education Materials Clostridioides Difficile Infection, Cthg-wi-Xlfj Medication Leaflets My discharge plan and instructions have been reviewed and explained to me and IUVALDO ANGELA Lunderstand my current condition and have read and understand these discharge instructions. I have received a written copy of the plan/instructions. If I have questions, I am aware that I should contact my doctor. 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 Signature: Date/Time: Relationship to Patient: Witness Name/Signature: Date/Time: [id number] Note Discharge Instructions Thank you for allowing [facility] to assist you with your healthcare needs. The following is importantdischarge information regarding your hospital visit. Your Care Team WILL BRANNON MD What to do next Follow Up Appointments Follow Up with WILL BRANNON MD When:Within 1-2 days Where:[address] [place] [address]- Additional Information: Please call the office to schedule a follow-up appointment. Follow Up with KRISTINE MOON MD Where:[address] [facility] [place] [phone] Additional Information: Follow-up in 1 to 2 [...] days after discharge, please call [facility] at [phone]. Discharge Event Monitor Instructions - Ordered -- 11/22/23 14:40:45 EDT, You have been ordered mobile outpatient telemetry. You should receive a device in the mail with further instructions. If you have not received a device within 7 days after discharge, please call [facility] at [phone]. Post Acute Orders No qualifying data available. [...] Two (2) times a day Pickup at [facility] New sulfamethoxazole-trimethoprim (Bactrim DS 800 mg-160 mg oral tablet) 1 tab(s) by mouth Two (2) times a day Duration: 2 Days Pickup at [facility] New vancomycin (vancomycin 25 mg/ mL ORAL solution) 5 Milliliter by mouth Four (4) times a day Duration: 14 Days Pickup at [facility] Unchanged atorvastatin (atorvastatin 80 mg oral [...] by mouth Daily at bedtime Pharmacy Information [facility]: [address] [place], [place] [phone] Please take this list to your next [...] Follow these instructions at home: Medicines Take nxsr-urr-pehgako and prescription medicines only as told by [...] ? Rice. ? Low-fat (lean) meats. ? [place]. ? Crackers. Follow your doctor's instructions on [...] 03/12/2010 Document Revised: 10/09/2019 Document Reviewed: 10/09/2019 [employer] Patient Education 2020 [employer]. Additional Information VACCINATE! IT SAVES LIVES! Members of the community who have not yet received the COVID-19 vaccine and would like to receive it can visit one of [facility] vaccine clinics. There are many vaccine clinic locations within the [facility]. For locations and available times, please visit https://gettheshot.coronavirus.[place].gov/. It is important to note that some COVID mobile vaccine clinics are held outdoors and may be canceled in rainy or stormy conditions. To learn more about pediatric vaccinations (ages 5-11), we invite you to visit the [facility] webpage. https://www.[facility].org/pages/0955-Spcle-Huebffdhmmo-Aizpnmrjgt-Dnxfw-Xln stions.htmlTo learn more about the COVID-19 vaccine, we invite you to visit the CDC website for a list of frequently asked questions.https://www.cdc.gov/coronavirus/2019-ncov/vaccines/faq.html [facility] Patient Portal Access Instructions: Stay connected with your healthcare team and access your personal medical information anytime with the [facility] Patient Portal. Please follow the directions below to create your [facility] account: 1.Access the email account you provided upon registration to the hospital/physician office.2.Look for an invitation email from [facility].3.Open the email and access the invitation link: AcceptInvitation to [facility].4.Fill in the required hartley to create your account. To access your account, visit [email or web address]. Click the blue button labeled Access Patient [...] who you will allowto register on the [facility] Patient Portal for access to your information. You can also access the [facility] Patient Portal on the [facility] robert. Simply click on Patient Portal and then log into your account. If you would like to receive a full copy of your medical records, please contact the [facility] Medical Records Department by calling [phone], Monday through Monday between 8 a.m. and [...] Call your local pharmacy or go to http://SchoolChapters.Art of Defence/2G3Kd4y to find one close to you.3.Make use of household items: Use cat litter or old coffee grounds to dispose medications if other options arenot available. Mix your drugs with these household products, seal them in an airtight container andthrow it into the garbage. Call [facility]: [phone] to be sure your drugs can be [...] Signatures Patient Education Materials Clostridioides Difficile Infection, Ncir-bk-Nlbo Medication Leaflets My discharge plan and instructions have been reviewed and explained to me and IUVALDO ANGELA Lunderstand my current condition and have read and understand these discharge instructions. I have received a written copy of the plan/instructions. If I have questions, I am aware that I should contact my doctor. 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 Signature: Date/Time: Relationship to Patient: Witness Name/Signature: Date/Time: [facility] [id number] Discharge summary Date of Service 11/22/2023 Discharge [...] 2 day(s), # 4 tab(s), 0Refill(s), Pharmacy: [facility], 155, cm, 11/18/23 9:54:00 EDT, Height, [...] BID, # 60 tab(s), 0 Refill(s), Pharmacy: [facility], 155, cm, 11/18/23 9:54:00 EDT, Height, 108.4, kg, 11/18/23 9:54:00EDT, Dosing Weight Ordered: vancomycin 25 mg/mL ORAL solution,Dose : 125 mg = 5 mL, Oral, QID, X 14 day(s), # 280 mL, 0 Refill(s), 12/06/23 10:52:00 EDT, Pharmacy: [facility], 155, cm, 11/18/23 9:54:00 EDT, Height, [...] WILL BRANNON MD When:Within 1-2 days Where:[address] [place] [address] Additional Information: Please call the office to schedule a follow-up appointment. Follow Up with KRISTINE MOON MD Where:[address] [facility] [place] [phone] Additional Information: Follow-up in 1 to 2 [...] CARLEY SYKES MD on 11/22/2023 04:20 PM [id number] Infectious disease Progress note Microdata reviewed, stool for C. difficile are positive We added oral vancomycin Will stop Levaquin and transition to 3 more days of oral Bactrim Plan on 14 days of oral vancomycin and follow with me as needed Please call for questions or concerns Digitally Signed by JORGE LAGOS BA, MD on 11/22/2023 12:17 PM [id number] Hematology Progress note Subjective Improving abdominal pain [...] -2535.00 Physical Exam In no apparent distress TONE REGULATOR: She was awake and alert Respiratory: No [...] LOI LINDSAY MD on 11/21/2023 10:16 PM [id number] Infectious disease Progress note Date of Service [...] SKIN: No rashes noted, Suprapubic Cook site ROAD ROLLER OPERATOR HOT MIX-mildly pink/moist, diffuse ecchymosis, left heel DTI/purple coloring ROAD ROLLER OPERATOR HOT MIX, umbilicus dry skin/pink in coloring RAFI INCISIONS/DRESSINGS: [...] Alexia Jackson RN on 11/21/2023 09:56 AM [id number] Note Date of Service 11/21/23 Reason for Consultation Admission From: Home Ostomy & skin assessment Skin Team Findings Vitals and Measurements T: 37.1 C (Oral) TMIN: 36.8 C (Oral) TMAX: 37.5 C (Oral) HR: 70 (Monitored) RR: 18 BP: 102/69 SpO2:93% WT: 108.6 kg Pressure Area Details ------Pressure [...] by VERNON Zhao on 11/21/2023 02:28 PM [facility] [id number] Note Subjective: Patient seen for sepsis, left-sided [...] Rate70(NOV 20 06:56)70(NOV 20 06:56)70(NOV 20 06:56) JKN981(NOV 20 06:56)L 76(NOV 19 15:10)116(NOV 19 22:26) [...] CARLEY SYKES MD on 11/21/2023 04:09 PM [facility] [id number] Infectious disease Progress note Date of Service [...] Alexia Jackson RN on 11/21/2023 09:56 AM [place] [id number] Hematology Progress note Date of Service 11/20/2023 Chief Complaint Splenic Infarcts Subjective 43-year-old female with past medical history significant for spina bifida, HLD, HTN, type 2 diabetes mellitus neurogenic bladder s/p suprapubic catheter, neurogenic bowel s/p colostomy, anxiety/depression, paroxysmal SVT, BLE edema, cervical radiculopathy, neuropathy, obesity, chronic pain, insomnia, migraine, recurrent UTIs with Pseudomonas, fatty liver, cervical spinal stenosis, recent admission for at [facility] from 10/29/2013 11/02/2023 for UTI presented as a transfer from [facility] because of sepsis, UTI, splenic infarcts. On [...] date 11/19/23 5:00:00 EDT [facility] Panel by [facility], 11/19/23 5:00:00 EDT, Next AM Draw (one day only), Blood, Once, Stop date 11/19/23 5:00:00 EDT Recommend the patient take oral anticoagulation for 6 months. Will order venous Doppler's for bilateral lower extremities. Complete assessment, plan, and recommendations were discussed and decided on by Dr. Lindsay. All decisions were made by the provider. Digitally Signed by VERNON Gutiérrez on 11/20/2023 11:31 AM [id number] Note* Exam Date Time Procedure Performing Provider Status 11/20/23 4:53 PM Echocardiogram, Adult - CV Auth (Verified) [facility] 06-24-2024 Note Date of Service 11/20/2023 Chief [...] cervical spinal stenosis, recent admission for at [place] from 10/29/2013 11/02/2023 for UTI presented as a transfer from [facility] because of sepsis, UTI, splenic infarcts. Patient stated that she has been having fever for 2 weeks, she was not feeling well since dischargefrom [facility], she went to [place] ED on 11/07/23 and she was given Bactrim for 7 days. She has been having foul-smelling urine and purulent drainage and suprapubic catheter for 2 days. She has been having left flank pain for 2 days. She follows up with urologist at [facility]. And suprapubic catheter will be exchanged by urologist at [facility] every 4 weeks, last exchange was on 10/31/2023 In ED patient had temperature of 38.7, was tachycardic, WBC elevated to 11.5. Urinalysis concerning for infection Sodium [address] abdomen done which showed enlarging spleen with multiple suspected infarcts. Spleen size 15.2 cm and it was 12.8 cm previously. Patient was transferred to [facility] for further management. Urology was consulted, suprapubic catheter was exchanged by urology on 11/19/2023. ID on board, continue meropenem Patient was found to have splenic infarcts, hematology was consulted, hypercoagulable workup Ordered, can be followed up as outpatient. Carder Blankets recommended anticoagulation, initially was on heparin drip, [...] MTT with Monitor, None, No, Full code, 108.795297 kg, ME4S, 11/20/23 13:30:00 EDT Event Monitor - Mobile Outpatient Telemetry (7-30 days), 11/20/23 9:03:00 EDT, Physician to Read: ELENA MENA MD, 30, Other, specify in instructions, Splenic infarcts, palpitations, Mail to patient, Mobile Outpatient Telemetry, ME4S, Authorize flip to Event Monitor if insurance denies MOT, [employer]... ROUTINE EMERGENCY TREATMENT - Full Code, 11/19/23 [...] -Further exchanges outpatient by her urologist at [place] 4. Splenic infarcts : Differential diagnosis include [...] mellitus: Continue basal insulin, insulin sliding scale, [id number] 7. Neurogenic bowel status post colostomy 8. Paroxysmal SVT on propranolol 9. History of leg edema on Lasix at home. Resume Lasix today. Venous duplex ultrasound negative forDVT in bilateral lower extremity. DVT px patient on Eliquis Digitally Signed by ALTAGRACIA HARE MD on 11/20/2023 04:15 PM [facility] [id number] Infectious disease Progress note Date of Service [...] SKIN: No rashes noted, Suprapubic Cook site ROAD ROLLER OPERATOR HOT MIX-mildly pink/moist, diffuse ecchymosis, left heel DTI/purple coloring ROAD ROLLER OPERATOR HOT MIX INCISIONS/DRESSINGS: None EXTREMITIES: +2-3 BLE/pedal edema history [...] Alexia Jackson RN on 11/20/2023 01:10 PM [id number] Infectious disease Progress note Date of Service [...] SKIN: No rashes noted, Suprapubic Cook site ROAD ROLLER OPERATOR HOT MIX-mildly pink/moist, diffuse ecchymosis, left heel DTI/purple coloring [...] Alexia Jackson RN on 11/20/2023 01:10 PM [id number] Note* Exam Date Time Procedure Performing Provider Status 11/20/23 12:45 PM VL Venous US/Doppler Both Legs(for DVT) Auth (Verified) [facility] 06-24-2024 Hematology Progress note Date of Service [...] cervical spinal stenosis, recent admission for at [facility] from 10/29/2013 11/02/2023 for UTI presented as a transfer from [facility] because of sepsis, UTI, splenic infarcts. On [...] Blood, Once, Stop date 11/19/23 5:00:00 EDT [facility] Panel by [facility], 11/19/23 5:00:00 EDT, Next AM Draw (one day only), Blood, Once, Stop date 11/19/23 5:00:00 EDT Recommend the patient take oral anticoagulation for 6 months. Will order venous Doppler's for bilateral lower extremities. Complete assessment, plan, and recommendations were discussed and decided on by Dr. Lindsay. All decisions were made by the provider. Digitally Signed by VERNON Gutiérrez on 11/20/2023 11:31 AM [facility] [id number] Note Date of Service 11/19/2023 Chief Complaint [...] -Further exchanges outpatient by her urologist at [place] 4. Splenic infarcts : Differential diagnosis include [...] mellitus: Continue basal insulin, insulin sliding scale, [id number] 7. Neurogenic bowel status post colostomy 8. Paroxysmal SVT on propranolol 9. DVT px patient on heparin drip Digitally Signed by LATAGRACIA HARE MD on 11/19/2023 05:12 PM Digitally Signed by ALTAGRACIA HAER MD on 11/19/2023 05:14 PM [facility] [id number] Urology Consult note Date of Service 11/19/23 [...] cervical spinal stenosis, recent admission for at [place] from 10/29/2013 11/02/2023 for UTI presented as a transfer from [facility] because of sepsis, UTI, splenic infarcts. Report from [place] ED physician was taken by my colleague overnight Patient stated that she has been having fever for 2 weeks, she was not feeling well since dischargefrom [facility], she went to [place] ED on 11/07/23 and she was given [...] outpatient She follows up with urologist at [facility]. And suprapubic catheter will be exchanged by urologist at [facility] every 4 weeks, last exchange was on 10/31/2023 and due for exchange in 12/05/2023. In ED patient had temperature of 38.7, was tachycardic, WBC elevated to 11.5. Urinalysis concerning for infection Sodium [address] abdomen done which showed enlarging spleen with multiple suspected infarcts. Spleen size 15.2 cm and it was 12.8 cm previously. Patient was transferred to [facility] for further management. [1] Urology has been [...] focal deficits. SPT change: The existing 20 Bulgarian suprapubic tube was removed without difficulty. The area was prepped with Betadine and the fresh 20 Bulgarian suprapubic tube was placed with 10 cc [...] ARACELI KIDD DO on 11/19/2023 09:18 AM [facility] [id number] Nurse Progress note Student's documentation was reviewed and all medications were verified prior to administration. Digitally Signed by Luna Gutiérrez RN on 11/18/2023 06:36 PM [facility] [id number] Infectious disease Consult note Date of Service 11/18/2023 Reason for Consultation Complicated UTI Referring Physician Dr. Hare History of Present Illness Patient is a 43-year-old female with past medical history of spina bifid, hypertension hyperlipidemia type 2 diabetes mellitus neurogenic bladder status post suprapubic catheter, status post colostomy, anxiety/depression, paroxysmal SVT, history of recurrent urinary tract infections, cervical spinal stenosis, recently admitted to [place] earlier this month for suspected UTI, subsequently discharged but presented back to [place] emergency room on 11/17/2023 and subsequently transferred [...] JOHAN GERMAN MD on 11/18/2023 02:54 PM [facility] [id number] Evaluation + Plan noteExtracted from: Title:History and [...] is full code Diagnostic Tests Pending * [facility] Spec[facility] 11/19/23 * [facility] Panel by [facility] 11/19/23 [facility] 06-22-2024 Hematology Consult note Date of Service [...] symptoms from infarcts/splenomegaly. -Followup with PCP and TERMINAL GAUGER SUPERVISOR regarding ASCUS Hematology will sign off. Patient [...] COREEN JASMINE MD on 11/18/2023 12:58 PM [facility] [id number] History and physical note Date of Service [...] cervical spinal stenosis, recent admission for at [place] from 10/29/2013 11/02/2023 for UTI presented as a transfer from [facility] because of sepsis, UTI, splenic infarcts. Report from [place] ED physician was taken by my colleague overnight Patient stated that she has been having fever for 2 weeks, she was not feeling well [facility], she went to [place] ED on 11/07/23 and she was given [...] outpatient She follows up with urologist at [facility]. And suprapubic catheter will be exchanged by urologist at [facility] every 4 weeks, last exchange was on 10/31/2023 and due for exchange in 12/05/2023. In ED patient had temperature of 38.7, was tachycardic, WBC elevated to 11.5. Urinalysis concerning for infection Sodium [address] abdomen done which showed enlarging spleen with multiple suspected infarcts. Spleen size 15.2 cm and it was 12.8 cm previously. Patient was transferred to [facility] for further management. Review of Systems As [...] Lab Data CBC, CMP ordered Labs at [place] reviewed Assessment/Plan #1 sepsis: Due to complicated [...] mellitus: Continue basal insulin, insulin sliding scale, [id number] 7. Neurogenic bowel status post colostomy 8. [...] ALTAGRACIA HARE MD on 11/18/2023 11:41 AM [id number] Note ORIGINAL EXAMINATION: CT OF THE ABDOMEN [...] Sign Date: 11/18/2023 1:18:41 AM Ordering Provider: [facility]06-21-2024 Note ORIGINAL EXAMINATION: ONE XRAY VIEW OF [...] Sign Date: 11/18/2023 12:01:19 AM Ordering Provider: [facility]06-21-2024 Evaluation + Plan note Diagnostic Tests Pending * Urine Culture 11/17/23 [facility] 06-13-2024 History of Present illness Narrative* Alicia Hu LPN - 11/09/2023 9:56 AM EDT Scan on 11/07/2023 10:58 PM by Melanie Simeon PA-C: Consultation - Emergency Medicine Alicia Hu LPN documented in this encounterF[facility]oria [facility]06-[facility] History of Present illness Narrative* Nubia Mccullough LPN - 11/07/2023 5:57 PM EDT Scan on 11/04/2023 11:30 PM by Melanie Simeon PA-C: Microbiology documented in this encounterFostoria City Hospital06-11-2024 History of Present illness Narrative* Alicia Hu LPN - 11/07/2023 1:59 PM EDT Scan on 11/04/2023 11:30 PM by Provider, CAMDEN Navarro: Rama Hu LPN documented in this encounterFostoria City Hospital06-06-2024 Hospital Discharge instructions Patient Education 11/02/2023 [...] 05/17/2004 Document Revised: 03/08/2019 Document Reviewed: 10/24/2016 [employer] Patient Education 2020 [employer]. 11/02/2023 13:08:33 Blood Glucose Monitoring, Adult Blood [...] 05/17/2004 Document Revised: 03/08/2019 Document Reviewed: 10/24/2016 [employer] Patient Education 2020 [employer]. 11/02/2023 13:08:29 Diabetes Mellitus and Nutrition, Adult [...] that you work with a diet and nutrition faculty member (dietitian) tomake a meal plan that is [...] care provider. Work with a counselor or coding educator to identify strategies to manage stress and any emotional and social challenges. Questions to ask a health care provider Do I need to meet with a coding educator? Do I need to meet with a dietitian? What number can I call if I have questions? When are the best times to check my blood glucose? Where to find more information: [place] Diabetes Association: diabetes.org Academy of Nutrition and Dietetics: www.eatright.org National [place] of Diabetes and Digestive and Kidney Diseases (NIH): www.niddk.nih.gov Summary A healthy meal plan will help you control your blood glucose and maintain a healthy lifestyle. Working with a diet and nutrition faculty member (dietitian) can help you make a meal [...] 02/09/2006 Document Revised: 04/27/2018 Document Reviewed: 06/19/2017 [employer] Patient Education 2020 [employer]. Follow Up Care 10/30/2023 22:57:51 With:WILL BRANNON MD Address: [address] [place] [id number]- When:3-5 days Comments:Please call to schedule your post-hospital follow-up appointment. [facility] 06-06-2024 Note Discharge Instructions Thank you for allowing [facility] to assist you with your healthcare needs. The following is importantdischarge information regarding your hospital visit. Your Care Team [facility] Team Your Diagnosis Abdominal pain Bacteriuria Neurogenic [...] WILL BRANNON MD When:Within 3-5 days Where:[address] [place] [address]- Additional Information: Please call to schedule your [...] 05/17/2004 Document Revised: 03/08/2019 Document Reviewed: 10/24/2016 Elsevier Patient Education 2020 [employer] Blood Glucose Monitoring, Adult Monitoring your blood [...] 05/17/2004 Document Revised: 03/08/2019 Document Reviewed: 10/24/2016 [employer] Patient Education 2020 [employer] Diabetes Mellitus and Nutrition, Adult When [...] that you work with a diet and nutrition faculty member (dietitian) tomake a meal plan that is [...] care provider. Work with a counselor or coding educator to identify strategies to manage stress and any emotional and social challenges. Questions to ask a health care provider Do I need to meet with a coding educator? Do I need to meet with a dietitian? What number can I call if I have questions? When are the best times to check my blood glucose? Where to find more information: [place] Diabetes Association: diabetes.org Academy of Nutrition and Dietetics: www.eatright.org National [place] of Diabetes and Digestive and Kidney Diseases (NIH): www.niddk.nih.gov Summary A healthy meal plan will help you control your blood glucose and maintain a healthy lifestyle. Working with a diet and nutrition faculty member (dietitian) can help you make a meal [...] 02/09/2006 Document Revised: 04/27/2018 Document Reviewed: 06/19/2017 [employer] Patient Education 2020 [employer]. Additional Information VACCINATE! IT SAVES LIVES! Members of the community who have not yet received the COVID-19 vaccine and would like to receive it can visit one of [facility] vaccine clinics. There are many vaccine clinic locations within the [facility]. For locations and available times, please visit https://gettheshot.coronavirus.[place].gov/. It is important to note that some COVID mobile vaccine clinics are held outdoors and may be canceled in rainy or stormy conditions. To learn more about pediatric vaccinations (ages 5-11), we invite you to visit the [facility] webpage. https://www.[email or web address].org/pages/9785-Hibsk-Hvaaffllrwa-Dyhvpnzeay-Enqoc-Kdj stions.htmlTo learn more about the COVID-19 vaccine, we invite you to visit the CDC website for a list of frequently asked questions.https://www.cdc.gov/coronavirus/2019-ncov/vaccines/faq.html [facility] Patient Portal Access Instructions: Stay connected with your healthcare team and access your personal medical information anytime with the [facility] [employer] Patient Portal. Please follow the directions below to create your [employer] account: 1.Access the email account you provided upon registration to the hospital/physician office.2.Look for an invitation email from [facility].3.Open the email and access the invitation link: AcceptInvitation to [facility].4.Fill in the required hartley to create your account. To access your account, visit [email or web address]. Click the blue button labeled Access Patient Portal and then log in with the username and password that you created in the steps above. You will be able to view your test results, lab results, a summary of your visits, upcoming appointments and more. There is also a convenient messaging option where you can send secure messages to your p Hello [employer]. In addition, you will have the ability to download any documents or summaries to your computer and/or send the information securely to a physician. Remember that your healthcare information is confidential, so carefully consider who you will allowto register on the [facility] [employer] Patient Portal for access to your information. You can also access the [facility] [employer] Patient Portal on the [facility] [employer] robert. Simply click on Patient Portal and then log into your account. If you would like to receive a full copy of your medical records, please contact the [facility] Medical Records Department by calling [phone], Monday through Monday between 8 a.m. and [...] Call your local pharmacy or go to http://bit.ly/2A3Wt3p to find one close to you.3.Make use of household items: Use cat litter or old coffee grounds to dispose medications if other options arenot available. Mix your drugs with these household products, seal them in an airtight container andthrow it into the garbage. Call [facility]: [phone] to be sure your drugs can be [...] aware that I should contact my doctor. 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 Patient was admitted at [facility] back in January and her [...] Patient has seen Dr. Ngo, ID, at [facility] in the past. Suprapubic catheter changed [...] by ARIANNA RICO on 11/01/2023 09:30 AM [facility]06-04-2024 Evaluation + Plan noteExtracted from: Title:History and [...] Patient has seen Dr. Ngo, ID, at [facility] in the past. Will change out [...] documenting in chart. I have reviewed the [place] Automated Rx Reporting System report for this patient for refill pattern and other prescriber involvement as part of the appropriate surveillance for the provision of acute and chronic controlled medication. The report was requested and reviewed on the date of this entry and was considered in the prescribing process. Diagnostic Tests Pending * Urine Culture 11/02/23 [facility] 06-04-2024 Note Date of Service 10/31/2023 [...] recurrent UTIs often growing pseudomonas, presented to [facility] emergency department with the chief complaint of [...] Patient has seen Dr. Ngo, ID, at [facility] for her recurrent UTIs. She had [...] Patient has seen Dr. Ngo, ID, at [facility] in the past. Will change out [...] documenting in chart. I have reviewed the [place] Automated Rx Reporting System report for this [...] RICO on 10/31/2023 11:37 AM [facility]06-04-2024 Telephone encounter Note* Telephone Encounter - Demarcus Sterling - 10/31/2023 8:19 AM EDT General Call Caller : pt Contact Reason for Call : Pt would like to discuss surgery. Pt missed appt after being admitted to hospitalthe night before. Patient requesting return call ? Yes [facility]-04[facility]2024 Note ORIGINAL EXAMINATION: CT OF THE [...] Sign Date: 10/31/2023 12:29:29 AM Ordering Provider: [facility]05-17-2024 History of Present illness Narrative* Michele Cardozo RN - 10/13/2023 11:11 AM EDT Called and spoke with patient via phone. Pt states that she was unable to get an appointment with her telephone interceptor operator prior to surgery. Her appointment is [...] requirements. Pt verbalized understanding. documented in this encounterFostoria City Hospital05-16-2024 Telephone encounter Note * Telephone Encounter - Irasema Doherty RN - 10/12/2023 3:[address]Toni Monson in [facility] appt. ([facility])- to see if pt. can be seen pre op. Left detailed message on nurse line. [facility]-16-[facility] Miscellaneous Notes* Telephone Encounter - Irasema Doherty RN - 10/12/2023 3:[address]Toni Monson in [facility] appt. ([facility])- to see if pt. can be seen pre op. Left detailed message on nurse line. * Telephone Encounter - Will Brannon MD - 10/12/2023 2:[address] Adi Monson is not an telephone interceptor operator with [facility] she is a provider here in [place]. You need tocall her office and speak with one of her nusres. * Telephone Encounter - Will Brannon MD - 10/11/2023 1:59 PM EDT Patient sees Dr. Adi Monson (Endocrinology) in [place] for the management of her diabetes. I [...] let us know, thank you. Zainab Zendejas APRN.DIRECTOR LABOR STANDARDS * Telephone Encounter - Zainab Zendejas APRN.CNP [...] until after her surgery. Thank you, Zainab Zendejas MSN, 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LABOR STANDARDS [facility] documented in this encounterFostoria City Hospital05-16-2024 Telephone encounter Note * Telephone Encounter - Lurdes Cassidy - 10/12/2023 2:[address] Johnson and Nilda Underwood CNP do not have any sooner openings in the [place] office prior to Pt's surgery date of 10/20/2023. I apologize for the inconvenience. Tracy Mccormick RN [place] [facility] Work Phone: [phone] Miscellaneous Notes* Telephone Encounter - Lurdes Cassidy - 10/12/2023 2:[address] Johnson and Nilda Underwood CNP do not have any sooner openings in the [place] office prior to Pt's surgery date of 10/20/2023. I apologize for the inconvenience. Tracy Mccormick RN [place] [facility] * Telephone Encounter - Brittney Zafar RN - 10/12/2023 1:24 PM EDT Lurdes from [facility] contacts office to ask if patient can be seen sooner than her appointment on 10/30.She is scheduled for surgery on 10/19 and [facility] wants her seen prior to surgery if possible. documented in this encounterFostoria City Hospital05-16-2024 Telephone encounter Note * Telephone Encounter - Will Brannon MD - 10/12/2023 2:03 PM EDT VOLODYMYR Monson is not an telephone interceptor operator with [facility] she is a provider here in [place]. You need tocall her office and speak with one of her nusres. [facility]-16-[facility] Telephone encounter Note* Telephone Encounter - Brittney Zafar RN - 10/12/2023 1:24 PM EDT Lurdes from [facility] contacts office to ask if patient can be seen sooner than her appointment on 10/30.She is scheduled for surgery on 10/19 and [facility] wants her seen prior to surgery if possible. [facility]05-15-[facility] Telephone encounter Note* Telephone Encounter - Will Brannon MD - 10/11/2023 1:59 PM EDT Patient sees Dr. Adi Monson (Endocrinology) in [place] for the management of her diabetes. I would advise reaching out to her office and reviewing your concerns with one of her nursing staff. [facility] Telephone encounter Note* Telephone Encounter - Zainab Zendejas APRN.PEPPER - 10/11/2023 1:18 PM EDT Discussed with [...] us know, thank you. Zainab Zendejas APRN.CNP [facility]05-15-20[facility] Telephone encounter Note* Telephone Encounter - [...] until after her surgery. Thank you, Zainab Zendejas MSN, 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LABOR STANDARDS [facility]05-15-[facility] Instructions* Patient Instructions* Zainab Zendejas APRN.CNP - 10/11/2023 9:19 AM EDT PATIENT PREOPERATIVE INSTRUCTIONS No ref. provider found has scheduled you for your procedure at this surgery center: [facility] [place] [facility] Scheduling Office: [phone] -[address] [place] [address] [place] [address]. Please read below carefully for your personalized instructions. Arrival Time for Surgery: - To obtain your arrival time for surgery, call your physician's office the day before your surgery. - If your surgery is scheduled for Monday, call the Monday before. Your surgeon s medical office scheduler will tell you what time to call the office. - If you have not reached the departmental medical office scheduler by 5 P.M., call [phone] after 5 P.M. the day before your [...] Advance Directive, please fax a copy to [phone] or email to for it to be [...] into your chart that day. Zainab Zendejas APRN.PEPPER documented in this encounterFostoria City Hospital05-15-2024 History and physical note * Zainab Zendejas APRN.DIRECTOR LABOR STANDARDS - 10/11/2023 9:05 AM EDT Images from [...] patient STOP-Bang Score: 3 (Tested negative ) [id number] Score: Hypertension history: Yes Diabetes history: Yes [id number] Score: ANESTHESIA FINDINGS: Intubation History: No history [...] pain, CHF, congenital heart defect, DVT/PE, recent CT, murmur/valvular heart disease, PTCA, PVD, open heart surgery and valve surgery. GI: +colostomy Positive for: abdominal pain and liver disease Negative for: GERD, GI bleed <30 days, hepatitis, nausea and vomiting. : Denies kidney disease. +SPT Positive for: urinary tract infection (none current but hx). Negative for: on dialysis, dysuria, frequent urination, hematuria and renal failure. 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 Endocrine: [...] 05/02/2013 Chronic pain 02/12/[address] ([facility]) 09/30/2021 Constipation due to outlet dysfunction 10/07/2021 Cyst of ovary 11/28/2011 Diabetes mellitus with peripheral vascular disease (HCC) 03/29/2023 Diabetic eye exam ([facility]) 06/17/2016 Last done: 01/25/2017 Diabetic eye exam ([facility]) 06/17/2016 Last done: 03/08/2019 DJD (degenerative joint disease), thoracic DM (diabetes mellitus), secondary, uncontrolled, 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 Will monitor. Lipomeningocele, sacral level 09/12/2013 Lumbago 02/12/2015 Major depressive disorder, recurrent, mild ([facility]) 03/29/2023 Medicare annual wellness visit, subsequent 02/28/2018 [...] 02/12/2015 Panic attacks Paroxysmal SVT (supraventricular tachycardia) ([facility]) 07/03/2017 Per 48 Hr event monitor 06/30/2017 Primary insomnia 02/17/2016 S/P hernia repair 12/11/2017 Spina bifida ([facility]) 01/06/2016 Thyroid cyst 01/01/2018 Complex right sided [...] daily or as needed. Taking Yes Insulin [place], Disposable, (COMFORT EZ PEN NEEDLES) 29 gauge [...] Rinse mouth after use. Taking Yes Insulin [place], Disposable, 32 gauge x 5/16 ndle Use [...] 410 QTC Calculation (Bazett) 461 Calculated P Shelby 24 Calculated R Shelby 28 Calculated T Shelby 17 Impression NORMAL SINUS RHYTHM NORMAL ECG Confirmed by MD DENY, ELENA () on 09/29/2023 9:24:59 AM Recent Results (from the past 26536 hour(s)) ECHO Collection Time: 09/30/21 2:51 PM [...] 11, 2023 TIME: 9:05 AM PAGER/CONTACT #: [facility] History and physical note* Zainab Zendejas APRN.CNP - 10/11/2023 9:05 AM [...] patient STOP-Bang Score: 3 (Tested negative ) [id number] Score: Hypertension history: Yes Diabetes history: Yes [id number] Score: ANESTHESIA FINDINGS: Intubation History: No history [...] pain, CHF, congenital heart defect, DVT/PE, recent CT, murmur/valvular heart disease, PTCA, PVD, open heart surgery and valve surgery. GI: +colostomy Positive for: abdominal pain and liver disease Negative for: GERD, GI bleed <30 days, hepatitis, nausea and vomiting. : Denies kidney disease. +SPT Positive for: urinary tract infection (none current but hx). Negative for: on dialysis, dysuria, frequent urination, hematuria and renal failure. 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 Endocrine: [...] Diagnosis Date Amputation of left great toe ([facility]) 06/25/2020 Arthritis started age 19 Bilateral leg edema 07/16/2018 Cervical radiculopathy 05/02/2013 Chronic pain 02/12/[address] ([facility]) 09/30/2021 Constipation due to outlet dysfunction 10/07/2021 Cyst of ovary 11/28/2011 Diabetes mellitus with peripheral vascular disease ([facility]) 03/29/2023 Diabetic eye exam ([facility]) 06/17/2016 Last done: 01/25/2017 Diabetic eye exam ([facility]) 06/17/2016 Last done: 03/08/2019 DJD (degenerative joint disease), thoracic DM (diabetes mellitus), secondary, uncontrolled, 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 Elevated LFTs 03/11/2020 Essential hypertension 02/21/2019 Fatty [...] daily or as needed. Taking Yes Insulin [place], Disposable, (COMFORT EZ PEN NEEDLES) 29 gauge [...] Rinse mouth after use. Taking Yes Insulin [place], Disposable, 32 gauge x 5/16 ndle Use [...] 410 QTC Calculation (Bazett) 461 Calculated P Shelby 24 Calculated R Shelby 28 Calculated T [place] 17 Impression NORMAL SINUS RHYTHM NORMAL ECG Confirmed by MD BARCLAY GREGORY () on 09/29/2023 9:24:59 AM Recent Results (from the past 59840 hour(s)) ECHO Collection Time: 09/30/21 2:51 PM [...] 9:05 AM PAGER/CONTACT #: documented in this encounterFostoria City Hospital05-13-2024 History of Present illness Narrative* Devin [...] Diagnosis Date Amputation of left great toe ([facility]) 06/25/2020 Arthritis started age 19 Bilateral leg edema 07/16/2018 Cervical radiculopathy 05/02/2013 Chronic pain 02/12/[address] ([facility]) 09/30/2021 Constipation due to outlet dysfunction 10/07/2021 Cyst of ovary 11/28/2011 Diabetes mellitus with peripheral vascular disease ([facility]) 03/29/2023 Diabetic eye exam ([facility]) 06/17/2016 Last done: 01/25/2017 Diabetic eye exam ([facility]) 06/17/2016 Last done: 03/08/2019 DJD (degenerative joint disease), thoracic DM (diabetes mellitus), secondary, uncontrolled, 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 Elevated LFTs 03/11/2020 Essential hypertension 02/21/2019 Fatty liver 03/11/2020 US 10/2019 History of Amnley's palsy 09/22/2021 History of kidney stones 01/04/2016 History of recurrent UTIs 11/28/2011 Hydronephrosis, right 01/04/2016 Hypomagnesemia 10/07/2021 Hyponatremia 04/08/2021 Ranges 133-137. Will monitor. Lipomeningocele, sacral level 09/12/2013 Lumbago 02/12/2015 Major depressive disorder, recurrent, mild ([facility]) 03/29/2023 Medicare annual wellness visit, subsequent 02/28/2018 [...] catheter irrigation daily or as needed. Insulin [place], Disposable, (COMFORT EZ PEN NEEDLES) 29 gauge [...] once daily. Rinse mouth after use. Insulin [place], Disposable, 32 gauge x 5/16 ndle Use [...] weight loss. BMI 39.87 kg/(m^2) Devin George APRN.DIRECTOR LABOR STANDARDS documented in this encounterFostoria City Hospital05-11-2024 Discharge summary Author Kevin Barcenas [facility] October 07, 2023 3:24pm Note Date/Time October 07, 2023 1:38p [facility] Medical Records Department [address] [place] [address] Emergency Department Summary 10/07/23 MR#: [id number] Acct: [id number] Name: DEBBY BAILON Rep #:[id number] : [...] moves all 4 extremities. 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 She has significant [...] % (Auto) 62.2 Lymph % (Auto) 26.2 [place] % (Auto) 8.4 Eos % (Auto) 1.2 [...] Clarity Cloudy Urine pH 6.5 Ur Specific [place] 1.020 Urine Protein 100 H Urine Glucose [...] 14:44 EDT Reading Location ID and State: [facility] / [place] , Service support , Discharge Plan Triage [...] problems, contact your Primary Care Provider. Call [facility] ([phone]) or report to the closest Emergency Room. Call 911 if necessary. 10/07/23 1524 <Electronically signed by Kevin Barcenas MD> Cosigner Signature (if applicable): CC: Dr. Will Brannon MD ~ Signed [facility] Work Phone: 1(233) 931-665005-09-2024 Telephone encounter Note* Telephone Encounter - Jeaneth Morales MA - 10/05/2023 2:58 PM EDT Pt notified- follow up appointment scheduled. Patient states she had been seeing Dr. Monson for endocrinology, she has not seen her since last year. Jeaneth Morales MA [facility]05-09-[facility]24 Miscellaneous Notes* Telephone Encounter - Jeaneth [...] her Hgba1c has increased. documented in this encounterF[facility] Telephone encounter Note * Telephone Encounter - Devin George APRN.CNP - 10/05/2023 2:33 PM EDT Please have patient schedule appointment to discuss labs and find out who she sees for endocrinology as her Hgba1c has increased. [facility]05-07-[facility]24 History of Present illness Narrative* Jessie [...] Hillman. Jessie Alanis MA documented in this encounterFostoria City [facility]05-02-[facility] History of Present illness Narrative* Devin George APRN.CNP - 09/28/2023 5:11 PM EDT Images from [...] as PCP - General (Family Medicine) [facility] Medical/Family history review Reviewed and updated problem [...] Diagnosis Date Amputation of left great toe ([facility]) 06/25/2020 Arthritis started age 19 Bilateral leg edema 07/16/2018 Cervical radiculopathy 05/02/2013 Chronic pain 02/12/[address] ([facility]) 09/30/2021 Constipation due to outlet dysfunction 10/07/2021 Cyst of ovary 11/28/2011 Diabetes mellitus with peripheral vascular disease ([facility]) 03/29/2023 Diabetic eye exam ([facility]) 06/17/2016 Last done: 01/25/2017 Diabetic eye exam ([facility]) 06/17/2016 Last done: 03/08/2019 DJD (degenerative joint disease), thoracic DM (diabetes mellitus), secondary, uncontrolled, 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 Elevated LFTs 03/11/2020 Essential hypertension 02/21/2019 Fatty [...] catheter irrigation daily or as needed. Insulin [place], Disposable, (COMFORT EZ PEN NEEDLES) 29 gauge [...] once daily. Rinse mouth after use. Insulin [place], Disposable, 32 gauge x 5/16 ndle Use [...] AND DIFFERENTIAL 9. Paroxysmal SVT (supraventricular tachycardia) ([facility]) - ICD9: 427.0, ICD10: I47.10 - ECG COMPLETE-NSR - PROPRANOLOL 20 MG TABLET 10. Hyperthyroidism - ICD9: 242.90, ICD10: E05.90 - THYROID STIMULATING HORMONE 11. Seasonal allergic rhinitis, unspecified trigger - ICD9: 477.9, ICD10: J30.2 - LORATADINE 10 MG TABLET 12. Colostomy in place ([facility]) - ICD9: V44.3, ICD10: Z93.3 13. Encounter for care or replacement of suprapubic tube (HCC) - ICD9: V55.5, ICD10: Z43.5 - OXYBUTYNIN CHLORIDE ER 15 MG TABLET,EXTENDED RELEASE 24 HR 14. Primary insomnia - ICD9: 307.42, ICD10: F51.01 - TRAZODONE 100 MG TABLET Devin George APRN.DIRECTOR LABOR STANDARDS documented in this encounterFostoria City [facility]05-02-[facility]24 Instructions* Patient Instructions* Devin George APRN.PEPPER - 09/28/2023 5:11 PM EDT Screening schedule [...] review all the medicines you take, even mikg-kdn-cbzdiia medicines. As you get older, the way [...] have certain medical conditions. documented in this encounterFostoria City [facility]04-29-[facility]24 Hospital Discharge instructions Patient Education 09/24/2023 [...] or water and you are getting dehydrated [id number] [employer]. [address] [place] [address], [place] [address]. All rights reserved. This information is not intended as a substitute for professional medical care. Always follow yourhealthcare professional's instructions. Follow Up Care 09/24/2023 22:10:47 With:WILL BRANNON MD Address: [address] [place] [address]- When:2-4 days [facility] 04-29-2024 Note Discharge Instructions Thank you for allowing [facility] to assist you with your healthcare needs. [...] MD When Within 2-4 days Where: [address] [place] [address]- Allergies Mushrooms (Throat swelling) Peanuts (Throat swelling) [...] or water and you are getting dehydrated [id number] [employer]. [address] [place] [address]. All rights reserved. This information is not intended as a substitute for professional medical care. Always follow yourhealthcare professional's instructions. Additional Information VACCINATE! IT SAVES LIVES! Members of the community who have not yet received the COVID-19 vaccine and would like to receive it can visit one of [facility] vaccine clinics. There are many vaccine clinic locations within the [facility]. For locations and available times, please visit www.gettheshot.coronavirus.[place].gov/. It is important to note that some COVID mobile vaccine clinics are held outdoors and may be canceled in rainy or stormy conditions. To learn more about pediatric vaccinations (ages 5-11), we invite you to visit the [facility] webpage. https://www.[facility].org/pages/4157-Apgqw-Iprhoplkuks-Pkrmufqqll-Paawd-Cdt stions.htmlTo learn more about the COVID-19 vaccine, we invite you to visit the CDC website for a list of frequently asked questions. https://www.cdc.gov/coronavirus/2019-ncov/vaccines/faq.html [facility] Patient Portal Access Instructions: Stay connected with your healthcare team and access your personal medical information anytime with the [facility] Patient Portal. If you would like a full copy of your medical records please contact the [facility] Medical Records Department Monday through Monday between 8a.m. and 4:30p.m. Please follow the directions below to access the portal: 1.Access the email account you provided upon registration to the hospital.2.Look for an invitation email from [facility].3.Open the email and access the invitation link: Accept Invitation to [facility]4.Fill in the required hartley to create your account. Sign into [email or web address] with your username and password that you [...] you will allow to register on the [facility] Patient Portal for access to your information. You can also access the [facility] Patient Portal on the [employer] robert. Simply click on Health Records under [employer] and then click on the EyeEm logo. HOW TO SAFELY DISPOSE OF PRESCRIPTION [...] Call your local pharmacy or go to http://SchoolChapters.Art of Defence/9V7Bk6i to find one close to you.3.Make use of household items: Use cat litter or old coffee grounds to dispose medications if other options arenot available. Mix your drugs with these household products, seal them in an airtight container andthrow it into the garbage. Call [facility]: [phone] to be sure your drugs can be [...] aware that I should contact my doctor. 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 Signature: Date/Time: Relationship to Patient: Witness Name/Signature: Date/Time: [facility]04-28-2024 Note ORIGINAL EXAMINATION: CT OF THE ABDOMEN [...] Sign Date: 09/24/2023 11:54:30 PM Ordering Provider: [facility]04-26-2024 Telephone encounter Note* Telephone Encounter - Michele [...] disposition : Low [0] Michele Cardozo RN [facility]04-26-2024 Miscellaneous Notes* Telephone Encounter - Michele [...] disposition : Low [0] Michele Cardozo RN * Telephone Encounter - Kathy Herrera - 09/22/2023 2:56 PM EDT General Call Caller : pt Contact Reason for Call : Pt calling to schedule surgery Patient requesting return call ? Yes documented in this encounterFost[facility]04-26-[facility]24 Telephone encounter Note * Telephone Encounter - Kathy Herrera - 09/22/2023 2:56 PM EDT General Call Caller : pt Contact Reason for Call : Pt calling to schedule surgery Patient requesting return call ? Yes [facility]04-25-2024 History of Present illness Narrative* Daiana Sweeney MD - 09/21/2023 1:33 PM EDT This note was created using Wejoriter. 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 Yes, fatigue and Provider Notified Does the patient have a decreased appetite? No Does patient want to see a Serging Machine Operator? No (yes to any of above refer patient to schedulers for dietitian appointment) ) Does patient have any new or increased numbness or tingling of extremities? Yes, numbness in hands and arms Is patient interested in fertility information? No Does patient need any prescription refills? No Does patient have an advanced directive in place? No, Patient referred to [facility]04-[facility] Nurse Note* Jeaneth Marie MA - 09/21/2023 1:24 PM EDT Additional intake questions: Has the patient had fever, nausea, vomiting, diarrhea, constipation, fatigue for > 1 week? Yes, fatigue and Provider Notified Does the patient have a decreased appetite? No Does patient want to see a Serging Machine Operator? No (yes to any of above refer patient to schedulers for dietitian appointment) ) Does patient have any new or increased numbness or tingling of extremities? Yes, numbness in hands and arms Is patient interested in fertility information? No Does patient need any prescription refills? No Does patient have an advanced directive in place? No, Patient referred to [facility] documented in this encounterF[facility]04-09-[facility] History of Present illness Narrative* Naty [...] planned. Naty Haddad LPN documented in this encounterFostoria City Hospital03-22-2024 History of Present illness Narrative* Arianna Gould RT(R) - 08/18/2023 1:40 PM EDT Radiology Service [...] PATIENT PRESENTS WITH AN IMPLANTABLE OR ATTACHED CHIEF OF SAFETY AND PROTECTION: No RADIOLOGY DEPARTMENT: MR; Exam(s) Completed: Spine: Cervical spine, Thoracic spine, and Lumbar spine PERIPHERAL IV DATA: Not applicable SIGNED BY: RT Amira(R) August 18, 2023 2:55 PM documented in this encounterFostoria City Hospital03-20-2024 Instructions* Patient Instructions* Araceli Torres PA-C - 08/16/2023 4:46 PM EDT Increase lyrica to two at night (150mg at night) and one in the morning (75mg). Continue tylenol as needed for headaches. Follow up with neurosurgery as planned Imaging as planned on Monday Follow up in three months documented in this encounterFostoria City Hospital03-20-2024 History of Present illness Narrative* Araceli Torres PA-C - 08/16/2023 4:11 PM EDT Images from the original note were not included. [facility] Follow up CC: [...] stomach only when receiving the dye at [facility]. Has received gadolinium dye at [facility] without any issues. Regarding treatment, encouraged her [...] follow-ups. Has been following up with her touch up painter hand, Dr. Kapoor, and is scheduled to get [...] 05/02/2013 Chronic pain 02/12/[address] ([facility]) 09/30/2021 Constipation due to outlet dysfunction 10/07/2021 Cyst of ovary 11/28/2011 Diabetes mellitus with peripheral vascular disease ([facility]) 03/29/2023 Diabetic eye exam ([facility]) 06/17/2016 Last done: 01/25/2017 Diabetic eye exam ([facility]) 06/17/2016 Last done: 03/08/2019 DJD (degenerative joint disease), thoracic DM (diabetes mellitus), secondary, uncontrolled, 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 Elevated LFTs 03/11/2020 Essential hypertension 02/21/2019 Fatty liver 03/11/2020 US 10/2019 History of Amnley's palsy 09/22/2021 History of kidney stones 01/04/2016 [...] catheter irrigation daily or as needed. Insulin [place], Disposable, (COMFORT EZ PEN NEEDLES) 29 gauge [...] once daily. Rinse mouth after use. Insulin [place], Disposable, 32 gauge x 5/16 ndle Use [...] which included preparing to see the patient, mnnf-xj-cgsn patient care, completing clinical documentation, obtaining and/or reviewing separately obtained history, performing a medically appropriate examination, counseling and educating the pat ient/family/caregiver, and ordering medications, tests, or procedures. Araceli Torres PA-C General Neurology [address] [place] [address]. [id number] Appointment: [phone] documented in this encounterFostoria City Hospital03-18-2024 History of Present illness Narrative* Josesito Verdin LPN - 08/14/2023 7:24 AM EDT Scan on 08/13/2023 10:46 PM by ProviderMelanie PA-C: Consultation - Emergency Medicine documented in this encounterFostoria City Hospital03-17-2024 Hospital Discharge instructions Additional Instructions Take Cipro for the urine infection. A urine culture was sent to make sure this antibiotic will work. Call your urologist Dr. Box this week for follow-up appointment. Make sure to check your blood sugars frequently and give your insulin on a sliding scale.[facility] Work Phone: [phone]) 844-368002-28-2024 History of Present illness Narrative* Josesito Verdin LPN - 07/26/2023 10:57 AM EST Scan on 07/26/2023 9:51 AM by ProviderMelanie PA-C: X-ray documented in this encounterFostoria City Hospital02-22-2024 Hospital Discharge instructions Patient Education 07/20/2023 [...] reach the bladder or kidneys in men. 5820-1092 [employer]. [address] [place] [address]. All rights reserved. This information is not intended as a substitute for professional medical care. Always follow yourhealthcare professional's instructions. Follow Up Care 07/19/2023 23:36:06 With:WILL BRANNON MD Address: [address] [place] [address]- When:2-4 days [facility] 02-22-2024 Note Discharge Instructions Thank you for allowing [facility] to assist you with your healthcare needs. [...] BRANNON MD When Within 2-4 days Where: [facility] [place] [address]- Allergies Mushrooms (Throat swelling) Peanuts [...] reach the bladder or kidneys in men. 7869-4475 [employer] [address] [place] [address]. All rights reserved. This information is not intended as a substitute for professional medical care. Always follow yourhealthcare professional's instructions. Additional Information VACCINATE! IT SAVES LIVES! Members of the community who have not yet received the COVID-19 vaccine and would like to receive it can visit one of [facility] vaccine clinics. There are many vaccine clinic locations within the [facility]. For locations and available times, please visit www.gettheshot.coronavirus.[place].gov/. It is important to note that some COVID mobile vaccine clinics are held outdoors and may be canceled in rainy or stormy conditions. To learn more about pediatric vaccinations (ages 5-11), we invite you to visit the [facility] webpage. https://www.[facility].org/pages/4483-Ybxxu-Iarkivmnunc-Usspbwhszh-Ofogg-Djp stions.htmlTo learn more about the COVID-19 vaccine, we invite you to visit the CDC website for a list of frequently asked questions. https://www.cdc.gov/coronavirus/2019-ncov/vaccines/faq.html [facility] Patient Portal Access Instructions: Stay connected with your healthcare team and access your personal medical information anytime with the [facility] Patient Portal. If you would like a full copy of your medical records please contact the [facility] Medical Records Department Monday through Monday between 8a.m. and 4:30p.m. Please follow the directions below to access the portal: 1.Access the email account you provided upon registration to the [facility].2.Look for an invitation email from [facility].3.Open the email and access the invitation link: Accept Invitation to [facility]4.Fill in the required hartley to create your account. Sign into [email or web address] with your username and password that you [...] you will allow to register on the [facility] Patient Portal for access to your information. You can also access the [facility] Patient Portal on the [employer] robert. Simply click on Health Records under [employer] and then click on the EyeEm logo. HOW TO SAFELY DISPOSE OF PRESCRIPTION [...] Call your local pharmacy or go to http://bit.ly/8I4Tm2q to find one close to you.3.Make use of household items: Use cat litter or old coffee grounds to dispose medications if other options arenot available. Mix your drugs with these household products, seal them in an airtight container andthrow it into the garbage. Call [facility]: [phone] to be sure your drugs can be [...] aware that I should contact my doctor. 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 Signature: Date/Time: Relationship to Patient: Witness Name/Signature: Date/Time[facility] [id number] Note ORIGINAL EXAMINATION: CT OF THE ABDOMEN [...] Sign Date: 07/20/2023 1:09:55 AM Ordering Provider: MARTIN ALTAMIRANODuke [facility]02-20-[facility] History of Present illness Narrative* Stephan Nicholson [...] catheter irrigation daily or as needed. Insulin [place], Disposable, (COMFORT EZ PEN NEEDLES) 29 gauge [...] once daily. Rinse mouth after use. Insulin [place], Disposable, 32 gauge x 5/16 ndle Use [...] By signing my name below, I, Denise Eastman, attest that this documentation has been prepared under the direction and in the presence of Dr. Nicholson. Electronically signed, Denise Soodrosemary 07/18/23 I agree with the Chief Complaint, ROS, and Past Histories independently gathered by the clinical operator command support systems and the remaining scribed note accurately describes my personal service to the patient. Clay Nicholson CC: PMD documented in this encounterFostoria City Hospital02-17-2024 Hospital Discharge instructions Patient Education 07/15/2023 [...] another medicine was prescribed, you can use knuc-fnb-uoanaxv medicines for pain, fever, or discomfort. If [...] when crying, sunken eyes, or dry mouth [phone] [employer] [address] [place] [address]. All rights reserved. This information is not intended as a substitute for professional medical care. Always follow yourhealthcare professional's instructions. Follow Up Care 07/15/2023 12:54:50 With:WILL BRANNON MD Address: [address] [place] [address]- When:2-4 days [facility] 02-17-2024 Note Discharge Instructions Thank you for allowing [facility] to assist you with your healthcare needs. The following is importantdischarge information regarding your hospital visit. Diagnosis from Today's Visit Flank pain Pyelonephritis What to Do Next Instructions from Your Care Team No qualifying data available. Post Acute Orders No qualifying data available. You Need to Schedule the Following Appointments Follow Up with WILL BRANNON MD When Within 2-4 days Where: [address] [place] [address]- Allergies Mushrooms (Throat swelling) Peanuts (Throat [...] pain Pyelonephritis Duration: 2 Days Pickup at [facility] New sulfamethoxazole-trimethoprim (Bactrim DS 800 mg-160 mg oral tablet) 1 tab(s) by mouth Two (2) times a day Duration: 10 Days Pickup at [facility] Unchanged atorvastatin (atorvastatin 80 mg oral [...] by mouth Daily at bedtime Pharmacy Information [facility]: [address] [place], [place] [id number] [phone] Please take this list to your next [...] another medicine was prescribed, you can use boma-akf-nzivwfh medicines for pain, fever, or discomfort. If [...] when crying, sunken eyes, or dry mouth [phone] [employer] [address] [place] [address]. All rights reserved. This information is not intended as a substitute for professional medical care. Always follow yourhealthcare professional's instructions. Additional Information VACCINATE! IT SAVES LIVES! Members of the community who have not yet received the COVID-19 vaccine and would like to receive it can visit one of [facility] vaccine clinics. There are many vaccine clinic locations within the [facility]. For locations and available times, please visit www.gettheshot.coronavirus.[place].gov/. It is important to note that some COVID mobile vaccine clinics are held outdoors and may be canceled in rainy or stormy conditions. To learn more about pediatric vaccinations (ages 5-11), we invite you to visit the [facility] webpage. https://www.[facility].org/pages/2908-Zxwoy-Umetljkwygh-Kgrobzhlyg-Uvcsi-Fvm stions.htmlTo learn more about the COVID-19 vaccine, we invite you to visit the CDC website for a list of frequently asked questions. https://www.cdc.gov/coronavirus/2019-ncov/vaccines/faq.html [facility] Patient Portal Access Instructions: Stay connected with your healthcare team and access your personal medical information anytime with the [facility] Patient Portal. If you would like a full copy of your medical records please contact the [facility] Medical Records Department Monday through Monday between 8a.m. and 4:30p.m. Please follow the directions below to access the portal: 1.Access the email account you provided upon registration to the [facility].2.Look for an invitation email from [facility].3.Open the email and access the invitation link: Accept Invitation to [facility]4.Fill in the required hartley to create your account. Sign into [email or web address] with your username and password that you [...] you will allow to register on the [facility] Patient Portal for access to your information. You can also access the [facility] Patient Portal on the [employer]. Simply click on Health Records under [employer] and then click on the EyeEm logo. HOW TO SAFELY DISPOSE OF PRESCRIPTION [...] Call your local pharmacy or go to http://SchoolChapters.Art of Defence/7U3Bf2u to find one close to you.3.Make use of household items: Use cat litter or old coffee grounds to dispose medications if other options arenot available. Mix your drugs with these household products, seal them in an airtight container andthrow it into the garbage. Call [facility]: [phone] to be sure your drugs can be [...] aware that I should contact my doctor. 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 Signature: Date/Time: Relationship to Patient: Witness Name/Signature: Date/Time: [facility]02-17-2024 Evaluation + Plan note Diagnostic Tests Pending * Urine Culture 07/15/23 [facility] 02-06-2024 History of Present illness Narrative* [...] planned. Naty Haddad LPN documented in this encounterFostoria City Hospital01-10-[facility] Hospital Discharge instructions Patient Education 06/07/2023 [...] swelling in the outer vaginal area (labia) 9948-3894 [employer] [address] [place] [address]. All rights reserved. This information is not intended as a substitute for professional medical care. Always follow yourhealthcare professional's instructions. 06/07/2023 20:46:57 R.I.C.E. RICE RICE stands for rest, ice, compression, [...] worsens and is not improved with elevation. 1359-0107 [employer] [address] [place] [address], [place] [address]. All rights reserved. This information is not intended as a substitute for professional medical care. Always follow [facility] professional's instructions. 06/07/2023 20:46:54 Fall, Uncertain Cause [...] in vomit, stools (black or red color) 9809-4336 [employer] [address] [place] [address], [place] [address]. All rights reserved. This information is not intended as a substitute for professional medical care. Always follow yourhealthcare professional's instructions. Follow Up Care 06/07/2023 18:13:01 With:DO CELINE MCNAMARA DO Address: [address] [place] [id number] When:5 to 7 days With:Go to emergency room if symptoms worsen Address:Unknown When:2-4 days With:WILL BRANNON MD Address: [address] [place] [address]- When:2-4 days [facility] 01-10-2024 Note Discharge Instructions Thank you for allowing [facility] to assist you with your healthcare needs. [...] When Within 5 to 7 days Where: [address] [place] [address] [phone] Follow Up with Go to emergency room if symptoms worsen When Within 2-4 days Follow Up with WILL BRANNON MD When Within 2-4 days Where: [address] [place] [address]- Allergies Mushrooms (Throat swelling) Peanuts [...] blood sodium or high potassium); porphyria, or zygukbu-6-lpomkyrxn dehydrogenase (G6PD) deficiency; or if you use [...] may report side effects to FDA at 4-024-RRT-7167. What other drugs will affect sulfamethoxazole and [...] sulfamethoxazole and trimethoprim. This includes prescription and biei-nos-zmbjdvn medicines, vitamins, and herbal products. Not all [...] to ensure that the information provided by [employer]. ('Multum') is accurate, up-to-date, and complete, but no guarantee is made to that effect. Drug information contained herein may be time sensitive. [employer] information has been compiled for use by healthcare practitioners and consumers in the [place] and therefore [employer] does not warrant that uses outside of the [place] are appropriate, unless specifically indicated otherwise. [employer]'s drug information does not endorse drugs, diagnose patients or recommend therapy. [facility] drug information isan informational resource designed to [...] effective or appropriate for any given patient. [facility] does not assume any responsibility for any aspect of healthcare administered with the aid of information [facility] provides. The information contained herein is not intended to cover all possible uses, directions, precautions, warnings, drug interactions, allergic reactions, or adverse effects. If you have questions about the drugs you are taking, check with your doctor, nurse or pharmacist. Copyright 3878-9050 [facility] [employer]. Version: 13.. Revision Date: 12/29/2022. Education Materials [...] swelling in the outer vaginal area (labia) 6790-3327 [employer] [address] [place] [address]. All rights reserved. This information is not [...] worsens and is not improved with elevation. 0431-0164 [employer] [address] [place] [address]. All rights reserved. This information is not [...] in vomit, stools (black or red color) 8011-7778 [employer] [address] [place] [address], [place] [address]. All rights reserved. This information is not intended as a substitute for professional medical care. Always follow yourhealthcare professional's instructions. Additional Information VACCINATE! IT SAVES LIVES! Members of the community who have not yet received the COVID-19 vaccine and would like to receive it can visit one of [facility] vaccine clinics. There are many vaccine clinic locations within the [facility]. For locations and available times, please visit www.gettheshot.coronavirus.[place].gov/. It is important to note that some COVID mobile vaccine clinics are held outdoors and may be canceled in rainy or stormy conditions. To learn more about pediatric vaccinations (ages 5-11), we invite you to visit the [facility] webpage. https://[email or web address].[email or web address] [email or web address]/[email or web address]-Uvzfm-Faiszsphdvb-Vtedxjzies-Qneje-Fby stions.htmlTo learn more about the COVID-19 vaccine, we invite you to visit the CDC website for a list of frequently asked questions. https://www.cdc.gov/coronavirus/2019-ncov/vaccines/faq.html [facility] [facility] Patient Portal Access Instructions: Stay connected with your healthcare team and access your personal medical information anytime with the [facility] Patient Portal. If you would like a full copy of your medical records please contact the [facility] Medical Records Department Monday through Monday between 8a.m. and 4:30p.m. Please follow the directions below to access the portal: 1.Access the email account you provided upon registration to the hospital.2.Look for an invitation email from [facility].3.Open the email and access the invitation link: Accept Invitation to [facility]4.Fill in the required hartley to create your account. Sign into [email or web address] with your username and password that you [...] you will allow to register on the [facility] Patient Portal for access to your information. You can also access the [facility] Patient Portal on the Telelogos. Simply click on Health Records under [employer] and then click on the [facility] logo. [...] Call your local pharmacy or go to http://SchoolChapters.Art of Defence/5O2Vl1p to find one close to you.3.Make use of household items: Use cat litter or old coffee grounds to dispose medications if other options arenot available. Mix your drugs with these household products, seal them in an airtight container andthrow it into the garbage. Call [facility]: [phone] to be sure your drugs can be [...] been reviewed and explained to me and I,UVALDO DEBBY Pedrojacquesteved my current condition and have read and understand these discharge instructions. I have received a written copy of the plan/instructions. If I have questions, I am aware that I should contact my doctor. 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 Signature: Date/Time: Relationship to Patient: Witness Name/Signature: Date/Time: [facility]01-10-2024 Note ORIGINAL EXAMINATION: Three views of the [...] Sign Date: 06/07/2023 8:23:54 PM Ordering Provider[facility] Note ORIGINAL EXAMINATION: THREE XRAY VIEWS OF THE LEFT ELBOW 06/07/2023 8:13 pm COMPARISON: None. HISTORY: ORDERING SYSTEM PROVIDED HISTORY: Reason for Exam: pain FINDINGS: There is no elbow effusion. There is no acute fracture or dislocation. Alignment is normal. IMPRESSION: No acute abnormality. Interpreted by: Xavier Briones Preliminary Report By: Xavier Birones Electronically signed By Xavier Briones Dictated Date: 06/07/2023 8:22:19 PM Prelim Date: 06/07/2023 8:22:39 PM Sign Date: 06/07/2023 8:22:39 PM Ordering Provider: [facility]01-10-2024 NoteSinus rhythm Electronic Signature: JHONY VAZQUEZ DO 06/07/2023 20:19:19[facility] 01-10-2024 Note ORIGINAL EXAMINATION: TWO XRAY [...] Sign Date: 06/07/2023 8:23:01 PM Ordering Provider: [facility]01-10-2024 Note ORIGINAL EXAMINATION: CT OF THE [...] Sign Date: 06/07/2023 7:48:07 PM Ordering Provider: [facility]01-10-2024 Note ORIGINAL EXAMINATION: CT HEAD WITHOUT IV [...] Sign Date: 06/07/2023 7:43:41 PM Ordering Provider: [facility]01-10-2024 Evaluation + Plan note Diagnostic Tests Pending * Urine Culture 06/07/23 [facility] 12-11-2023 Miscellaneous Notes* Telephone Encounter - Megan Funes LPN - 05/08/2023 3:46 PM EST See TE dated 05/08/23. Megan Funes LPN * Telephone Encounter - Coleen Connell LPN - 05/08/2023 11:50 AM EST Phone call placed brief message left with [facility] Dr. Stefano Wilhelm's office to get updated fax number. (See prior encounters) Coleen Connell LPN * Telephone Encounter - Fifi Kay LPN - 05/08/2023 11:23 AM EST Patient returned call and went over notes below with understanding. Patient said Dr is located [facility] , Dr Stefano Wilhelm. * Telephone Encounter - Megan Funes LPN - 05/05/2023 9:42 AM EST TC to pt with no answer, left VM to return call. Pt had a lumbar spine MRI 08/2021. Please see if this will work for her neurosurgeon. Please also confirm where her surgeon is located. Megan Funes LPN * Telephone Encounter - Wilbur Corona RN - 05/02/2023 2:43 PM EST Pt called in and reports she talked with her neurosurgeon Dr Wilhelm. She states he won't see her unless she has an MRI done of her back done first. Please call and advise. documented in this encounterFostoria [facility]12-11-2023 Miscellaneous Notes* Telephone Encounter - Coleen Connell LPN - 05/08/2023 3:18 PM EST Faxed chart result scans, last OV to [phone] with notation to update after review if [...] see MRI Results first before scheduling. Dr. Wilhelm'soffice would also like notes regarding if patient has tried physical therapy and pain management for this issue. Advised Leandra Perez that patient has MRIs scheduled for 05/30/2023 and that information will be faxed over then. Fax number for Dr. Wilhelm's office is [phone]. Araseli Ramos RN documented in this encounterFostoria City Hospital12-11-2023 Miscellaneous Notes* Telephone Encounter - Fifi Kay LPN - 05/08/2023 11:25 AM EST Patient returned call and went over results, notes from Dr Brannon with understanding. * Telephone Encounter - Ashley Mann Ma - 05/08/2023 10:43 AM EST Called and left message on patients voicemail to return call to the office and ask to speak with a FM triage nurse. Ashley Mann Ma * Telephone Encounter - Will Brannon MD - 05/07/2023 12:33 PM EST Let patient know her thyroid labs were ok. documented in this encounterFostoria City Hospital12-05-2023 History of Present illness Narrative* Naty [...] planned. Naty Haddad LPN documented in this encounterFostoria City Hospital12-05-2023 History of Present illness Narrative* Joni Barraza MD - 05/02/2023 2:46 PM EST Debby [...] changes are noted in bold/italics. Signature: Joni Barraza Date: 05/02/2023 Time: 4:16 PM OB History T0 L0 SAB1 IAB0 Ectopic0 Multiple0 Live Births0 Creative Director History LMP: 03/27/2023 (Approximate), Having periods Age at Menarche: Age at First : Age at Menopause: Creative Director History Comments: Sexual Activity: Yes; Male Contraception: None PAST MEDICAL HISTORY Diagnosis Date Amputation of left great toe ([facility]) 06/25/2020 Arthritis started age 19 Bilateral leg edema 07/16/2018 Cervical radiculopathy 05/02/2013 Chronic pain 02/12/[address] ([facility]) 09/30/2021 Constipation due to outlet dysfunction 10/07/2021 Cyst of ovary 11/28/2011 Diabetes mellitus with peripheral vascular disease ([facility]) 03/29/2023 Diabetic eye exam ([facility]) 06/17/2016 Last done: 01/25/2017 Diabetic eye exam ([facility]) 06/17/2016 Last done: 03/08/2019 DJD (degenerative joint disease), thoracic DM (diabetes mellitus), secondary, uncontrolled, 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 Will monitor. Lipomeningocele, sacral level 09/12/2013 Lumbago 02/12/2015 Major depressive disorder, recurrent, mild ([facility]) 03/29/2023 Medicare annual wellness visit, subsequent 02/28/2018 [...] catheter irrigation daily or as needed. Insulin [place], Disposable, (COMFORT EZ PEN NEEDLES) 29 gauge [...] once daily. Rinse mouth after use. Insulin [place], Disposable, 32 gauge x 5/16 ndle Use [...] external genitalia normal, normal Bartholin's glands, urethra, [place]'s glands, no vulvar lesions, no cervical lesions, good vaginal support, physiologic discharge present, normal appearing perineal body and perianal region BIMANUAL: deferred ASSESSMENT AND PLAN: 42yo female with AUB Pap Check pelvic US Check CBC (thyroid labs ordered by pcp) [facility] as patient strongly desires hysterectomy & declines other options. Patient is aware she would need to have surgery at a tertiary care center. Patient has urology appt today Medical Decision Making: Problems: Moderate: New problem with uncertain prognosis Data: Unique test(s) ordered: 3+ Risk: Low: Low risk from testing/treatment Medical Decision Making Level: 4 - Moderate Joni Barraza MD documented in this encounterFostoria City Hospital12-05-2023 Instructions* Patient Instructions* Araceli Torres PA-C [...] Feverfew: Feverfew is a common garden herb [place] and popular in [facility] as a treatment for disorders typically controlled [...] pepperoni, Pickled spring Pods of broad ayala (Kinyarwanda beans, Pashto pea pods, Nigerian (shantell) beans, persaud and navy beans Ripe [...] too muchlight. These can be obtained at Power2Switch.AutoShag or [employer] Foods: see list above. 2. Limit use of acute treatments (zfmq-kjy-jvbzklv medications, triptans, etc.) to no more than [...] and quiet environment. Relax and reduce stress. Bdloyls2Aocbl is a free robert that can instruct you on some simple relaxtionand breathing techniques. Http://MarketBrief is a free website that provides teaching [...] and will be handling your phone calls, Elimit Messages and inquiries, if any. Unless explicitly told otherwise at the time of your office visit, your study results and ensuing treatment plans will be released via Crescentrating and discussed during your follow-up appointment. MyChart: Please ask the schedulers to give you an activation code. The main way of communication isby Elimit rather than phone lines, so if you have not signed up, please do so. Crescentrating is also theway that you can review your labs and testing. We are not able to contact everyone to tell them results are normal. If you do not hear back from us regarding testing you have had, it should be considered normal or within normal range. If you have any questions about the results, you are free to message us. Crescentrating is meant for simple questions regarding medications, possible side effects, or other simplestraight forward questions in limited sentences, rather than multiple paragraphs of discussion. Crescentrating is not meant for, or efficient for [...] do not comment on most testing on Terapeakhart in a message or commentary unless there [...] you with this process. documented in this encounterFostoria City Hospital12-05-2023 History of Present illness Narrative* Megan [...] this encounter. Primary physician: Will Brannon [address] [place] [address] Reason for Evaluation: Headaches Subjective HPI Debby [...] saw neurosurgery in 2015. 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 Current Headache treatment [...] of attacks: 1-2 days Severity of headaches? 10 Onset to Peak: sometimes gradual and sometimes [...] or as needed. 1000 mL 11 Insulin [place], Disposable, (COMFORT EZ PEN NEEDLES) 29 gauge [...] mouth after use. 1 Bottle 3 Insulin [place], Disposable, 32 gauge x 5/16 ndle Use [...] Diagnosis Date Amputation of left great toe ([facility]) 06/25/2020 Arthritis started age 19 Bilateral leg edema 07/16/2018 Cervical radiculopathy 05/02/2013 Chronic pain 02/12/[address] ([facility]) 09/30/2021 Constipation due to outlet dysfunction 10/07/2021 Cyst of ovary 11/28/2011 Diabetes mellitus with peripheral vascular disease ([facility]) 03/29/2023 Diabetic eye exam ([facility]) 06/17/2016 Last done: 01/25/2017 Diabetic eye exam ([facility]) 06/17/2016 Last done: 03/08/2019 DJD (degenerative joint disease), thoracic DM (diabetes mellitus), secondary, uncontrolled, 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 Elevated LFTs 03/11/2020 Essential hypertension 02/21/2019 Fatty [...] no fasciculations or tremors noted. 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 Gait: Patient's gait slow and [...] stomach only when receiving the dye at [facility]. Has received gadolinium dye at [facility] without any issues. Regarding treatment, encouraged her [...] which included preparing to see the patient, shsq-ow-smhm patient care, completing clinical documentation, obtaining and/or reviewing separately obtained history, performing a medically appropriate examination, counseling and educating the pat ient/family/caregiver, and ordering medications, tests, or procedures. Araceli Torres PA-C [facility] This document has been created with the use of voice recognition technology. It may contain inaccuracies: (e.g. misspellings, inaccurate syntax or word sense) that have escaped review. documented in this encounterFostoria City Hospital11-27-2023 History of Present illness Narrative* Xavier [...] repeat a fine-needle aspiration. documented in this encounterFostoria City Hospital11-24-2023 Discharge summary Author Kevin Barcenas [facility] April 21, 2023 2:07am Note Date/Time April 20, 2023 11:21pm [facility] Medical Records Department [address] [place] [address] Emergency Department Summary 04/20/23 MR#: [id number] Acct: [id number] Name: DEBBY BAILON Rep #:[id number] : [...] is awake and alert. Const Vital Signs: 04/20/23 22:50 04/21/23 01:23 Temperature 98.3 F Temperature [...] % (Auto) 61.2 Lymph % (Auto) 26.1 [place] % (Auto) 9.3 Eos % (Auto) 1.5 [...] Sl. Cloudy Urine pH 7.0 Ur Specific [place] 1.010 Urine Protein 30 H Urine Glucose [...] daily. (DME) pen needle, diabetic [BD Ultra-Fine Hpoe [...] problems, contact your Primary Care Provider. Call [facility] ([phone]) or report to the closest Emergency Room. Call 911 if necessary. 04/21/23 0207 <Electronically signed by Kevin Barcenas MD> Cosigner Signature (if applicable): CC: Dr. Will Brannon MD ~ Signed [facility] Work Phone: [phone]) 252-411911-16-2023 Instructions* Patient Instructions* Trena Lackey RN - 04/13/2023 2:41 PM EST The following instructions are important for you related to your office visit today with the [facility] General Surgeons. Instructions After THYROID FINE [...] you have any questions or concerns @ [phone]. If you note any additional difficulties, questions, or concerns, you should contact our office immediately @ [phone] and ask to be transferred to the General Surgery department. documented in this encounterFostoria City Hospital11-16-2023 History of Present illness Narrative* Xavier Josue MD - 04/13/2023 2:36 PM EST Preoperative diagnosis: Right thyroid nodule Postoperative diagnosis: The same Procedure: Ultrasound-guided fine-needle aspiration of dominant right thyroid nodule Surgeon: oJselo Procedure: Ultrasound of the right thyroid gland [...] applicable. Trena Lackey RN documented in this encounterFostoria City Hospital11-16-2023 History of Present illness Narrative* Xavier Josue MD - 04/13/2023 2:27 PM EST HISTORY AND PHYSICAL Debby Bailon 1980 REFERRING PHYSICIAN: No ref. provider found [...] Echogenicity cannot be determined, 1 point Shape: Khkfn-ttcf-wqgq, 0 points Margin: Lobulated or irregular, 2 [...] 05/02/2013 Chronic pain 02/12/[address] ([facility]) 09/30/2021 Constipation due to outlet dysfunction 10/07/2021 Cyst of ovary 11/28/2011 Diabetes mellitus with peripheral vascular disease ([facility]) 03/29/2023 Diabetic eye exam ([facility]) 06/17/2016 Last done: 01/25/2017 Diabetic eye exam ([facility]) 06/17/2016 Last done: 03/08/2019 DJD (degenerative joint disease), thoracic DM (diabetes mellitus), secondary, uncontrolled, 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 Elevated LFTs 03/11/2020 Essential hypertension 02/21/2019 Fatty [...] or as needed. 1000 mL 11 Insulin [place], Disposable, (COMFORT EZ PEN NEEDLES) 29 gauge [...] mouth after use. 1 Bottle 3 Insulin [place], Disposable, 32 gauge x 5/16 ndle Use [...] Xavier Josue III, MD documented in this encounterFostoria City Hospital11-16-2023 Miscellaneous Notes* Telephone Encounter - Will [...] Gerardo Ruffin RN * Telephone Encounter - Josesito Verdin LPN - 04/13/2023 9:37 AM EST [...] a month. Orders placed. documented in this encounterFostoria City Hospital11-09-2023 Miscellaneous Notes* Letter - Coordinator, Mammography - 04/06/2023 9:06 AM EST April 06, 2023 PID: [id number] Debby AlvarengaShiva Bailon [address] [place] [address] Dear Ms. Bailon, Your recent breast imaging [...] who ordered/prescribed your screening mammogram: Please call [phone] or [phone] to schedule an appointment for your additional [...] and reports are kept on file at [facility] as part of your permanent medical record, and are available for your continuing care. Thank you for allowing us to help in meeting your health care needs. Sincerely, Dr. Santillan Interpreting Radiologist [facility] (Additional imaging) documented in this encounterFostoria City Hospital11-07-2023 History of Present illness Narrative* Naty [...] planned. Naty Haddad LPN documented in this encounterFostoria City Hospital10-10-2023 History of Present illness Narrative* Naty [...] planned. Naty Haddad LPN documented in this encounterFostoria City Hospital10-03-2023 Miscellaneous Notes* Telephone Encounter - Bayron [...] also sent asking patient to contact office. SURI Guzmna * Telephone Encounter - Jessie Connell LPN - 02/27/2023 6:57 PM EDT Left a message for pt to call the office and ask to speak to a nurse. Jessie Connell LPN * Telephone Encounter - Will Brannon MD - 02/27/2023 6:17 PM EDT Let patient know thyroid cyst is stable. documented in this encounterFostoria City Hospital09-30-2023 Hospital Discharge instructions Patient Education 02/25/2023 20:24:12 Urinary Tract Infection, Adult, Njym-om-Cpzb Urinary Tract Infection, Adult A urinary tract [...] Follow these instructions at home: Medicines Take cnhi-vgq-udifvve and prescription medicines only as told by [...] 10/31/2008 Document Revised: 05/02/2019 Document Reviewed: 11/22/2018 [employer] Patient Education Ayannah. Follow Up Care 02/21/2023 17:18:29 With:BEV NGO MD Address: [address] [facility] [address] [phone] When:2-4 days Comments:Please call to schedule an appt with this Infectious Disease Physician. With:WILL BRANNON MD Address: [address] [place] [address]- When:3-5 days Comments:Please call your PC after d/c and schedule a Follow up appt. [facility] 09-30-2023 Note Discharge Instructions Thank you for allowing [facility] to assist you with your healthcare needs. [...] Infectious Disease Physician. Where: [address] [facility] [address] [phone] Follow Up with WILL BRANNON MD When Within 3-5 days Why: Please call your PC after d/c and schedule a Follow up appt. Where: [address] [place] [address]- The Following Activity and Diet Have Been [...] may report side effects to FDA at 5-126-YXG-6181. What other drugs will affect aztreonam? Other drugs may affect aztreonam, including prescription and vfrx-ptp-wjgdxgl medicines, vitamins, and herbal products. Tell your [...] to ensure that the information provided by [employer]. ('Multum') is accurate, up-to-date, and complete, but no guarantee is made to that effect. Drug information contained herein may be time sensitive. [employer] information has been compiled for use by healthcare practitioners and consumers in the [place] and therefore [employer] does not warrant that uses outside of the [place] are appropriate, unless specifically indicated otherwise. [employer]'s drug information does not endorse drugs, diagnose patients or recommend therapy. [facility] drug information isan informational resource designed to [...] effective or appropriate for any given patient. [employer] does not assume any responsibility for any aspect of healthcare administered with the aid of information [employer] provides. The information contained herein is not intended to cover all possible uses, directions, precautions, warnings, drug interactions, allergic reactions, or adverse effects. If you have questions about the drugs you are taking, check with your doctor, nurse or pharmacist. Copyright 8853-6854 [facility] [employer]. Version: 8.01. Revision Date: 01/03/2023. Education Materials [...] Follow these instructions at home: Medicines Take yuhb-fwg-drlmyvq and prescription medicines only as told by [...] 10/31/2008 Document Revised: 05/02/2019 Document Reviewed: 11/22/2018 [employer] Patient Education 2020 [employer] Additional Information VACCINATE! IT SAVES LIVES! Members of the community who have not yet received the COVID-19 vaccine and would like to receive it can visit one of [facility] vaccine clinics. There are many vaccine clinic locations within the [facility]. For locations and available times, please visit https://[email or web address].[place].gov/. It is important to note that some COVID mobile vaccine clinics are held outdoors and may be canceled in rainy or stormy conditions. To learn more about pediatric vaccinations (ages 5-11), we invite you to visit the [facility] webpage. https://www.[facility].org/pages/0722-Askpn-Wfjjhslqlvc-Efbjeligbx-Guiyz-Zzy stions.htmlTo learn more about the COVID-19 vaccine, we invite you to visit the CDC website for a list of frequently asked questions.https://www.cdc.gov/coronavirus/2019-ncov/vaccines/faq.html [facility] Patient Portal Access Instructions: Stay connected with your healthcare team and access your personal medical information anytime with the [facility] Patient Portal. Please follow the directions below to create your [facility] account: 1.Access the email account you provided upon registration to the hospital/physician office.2.Look for an invitation email from [facility].3.Open the email and access the invitation link: AcceptInvitation to [facility].4.Fill in the required hartley to create your account. To access your account, visit [email or web address]. Click the blue button labeled Access Patient [...] who you will allowto register on the [facility] Patient Portal for access to your information. You can also access the [facility] Patient Portal on the [facility] robert. Simply click on Patient Portal and then log into your account. If you would like to receive a full copy of your medical records, please contact the [facility] Medical Records Department by calling [phone], Monday through Monday between 8 a.m. and [...] Call your local pharmacy or go to [email or web address] of Defence/2R8Fz0q to find one close to you.3.Make use of household items: Use cat litter or old coffee grounds to dispose medications if other options arenot available. Mix your drugs with these household products, seal them in an airtight container andthrow it into the garbage. Call [facility]: [phone] to be sure your drugs can be [...] Patient Education Materials Urinary Tract Infection, Adult, Csbz-zp-Rqsj Medication Leaflets Azactam My discharge plan and instructions have been reviewed and explained to me and I,DEBBY BAILONd my current condition and have read and understand these discharge instructions. I have received a written copy of the plan/instructions. If I have questions, I am aware that I should contact my doctor. 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 Signature: Date/Time: Relationship to Patient: Witness Name/Signature: Date/Time: [facility]09-30-2023 Nurse Progress note Pt and Mehdi educated on IM injection. instructed and successfully injected IM medication into pt's right thigh. Digitally Signed by Marbin Cooper RN on 02/25/2023 03:07 PM [facility]09-29-2023 Note Date of Service 02/24/2023 Chief Complaint UTI Subjective 41-year-old female with past medical history significant for neurogenic bladder, type 2 diabetes mellitus, spina bifida, migraines, insomnia, depression, hyperlipidemia frequent UTIs, neurogenic bowel with colostomy bag. Patient presented to [facility] emergency department on 02/21/2023 with left lower [...] Output (Last 24 hours) Intake Oral Intake 0.00 Output Urinary Catheter Output: 2624.00 Ostomy Stool Volume: 1.00 Total Summary Total Intake 0.00 Total Output 2626.00 Fluid Balance -566.00 Physical [...] Time Spent 36 minutes was spent in zkqa-wk-wfha time and coordination of care for this patient, including but not limited to personally gathering history, examining the patient, reviewing labs and images and records, counseling patient and/or family about diagnosis and potential workup if applicable, as detailed above as well as discussing the case with patient's interdisciplinary team where applicable. Digitally Signed by JERAD GONZALEZ on 02/24/2023 02:15 PM [facility]09-28-2023 Note Date of Service 02/23/2023 Chief Complaint Concern for cellulitis and UTI Subjective 41-year-old female with past medical history significant for neurogenic bladder, type 2 diabetes mellitus, spina bifida, migraines, insomnia, depression, hyperlipidemia frequent UTIs, neurogenic bowel with colostomy bag. Patient presented to [facility] emergency department on 02/21/2023 with left lower [...] recommended admission due to complicated history of neuro genic bladder and suprapubic catheter with frequent urinary tract infections. Patient had a concernfor cellulitis of left lower extremity. Patient is [...] GONZALEZ on 02/23/2023 05:24 PM [facility]09-27-2023 Evaluation + Plan noteExtracted from: Title:History and Physical Author:ARIANNA RICO 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LABOR STANDARDS Date:02/22/23 1. Urinary tract infection Acute, new [...] plan of care with nursing, therapy and social service agency director, collaborating with physician, and documenting in chart. [facility] 09-27-2023 Note Date of Service 02/22/2023 Chief Complaint Patient complains of left-sided lower leg pain and swelling. Lower leg is red and warm to the touch. History of Present Illness Patient is a 42-year-old female, who follows with Dr. Will Brannon with a past medical history significant for type 2 diabetes, neurogenic bladder, spina bifida, and frequent urinary tract infections, presented to [facility] emergency department with the chief complaint of [...] adds that she is trying to get wboMhaK4s down to 7 so she can have [...] plan of care with nursing, therapy and social service agency director, collaborating with physician, and documenting in chart. [...] RICO on 02/22/2023 04:45 PM [facility]09-26-2023 Note ORIGINAL EXAMINATION: CTA OF THE [...] Sign Date: 02/22/2023 12:56:56 AM Ordering Provider: [facility]09-26-2023 Note ORIGINAL EXAMINATION: CT OF THE ABDOMEN [...] Sign Date: 02/22/2023 12:42:32 AM Ordering Provider: [facility]09-26-2023 Note ORIGINAL EXAMINATION: ONE XRAY VIEW OF [...] Date: 02/21/2023 9:34:18 PM [facility] NoteSinus rhythm Left atrial enlargement Inferior infarct, age indeterminate S1Q3T3 BORDERLINE ECG Electronic Signature: LUDWIG MAYER DO 02/21/2023 19:53:05[facility] 09-07-2023 Discharge summary Author Dre Deal [facility] February 02, 2023 10:51pm Note Date/Time February 02, 2023 10:41pm [facility] Medical Records Department [address] [place] [address] Emergency Department Summary 02/02/23 MR#: [id number] Acct: [id number] Name: DEBBY BAILON Rep #:[id number] : [...] similar symptoms: Yes Recent Illness/Hospitalization: Yes [facility] Medical History Anxiety and depression Arthritis Manley's [...] Suprapubic catheter was changed by me. 18 Bulgarian silicone Cook was placed without difficulty. Lab [...] 81.9 H Lymph % (Auto) 10.0 L Limestone % (Auto) 6.9 Eos % (Auto) 0.3 [...] Clarity Cloudy Urine pH 6.0 Ur Specific [place] 1.015 Urine Protein 100 H Urine Glucose [...] your Primary Care Provider. Call [facility] ([phone]) or report to the closest Emergency Room. Call 911 if necessary. 02/02/232250 <Electronically signed by Dre Deal MD> Cosigner Signature (if applicable): CC: Dr. Will Brannon MD ~ Signed [facility] Work Phone: 1(113) 524-906708-21-2023 History of Present illness Narrative* Farhat Sears MD - 01/16/2023 11:04 AM EDT HPI: Ms. Bailon is a 42 year old female with a history of HTN, HLD, DM2 c/b amputation of L great toe, chronic constipation s/p colostomy 09/2021, neurogenic bladder d/t spina bifida managed with monthly SPT exchanges since 08/2018 (18Fr - last done 01/06/23) c/b bladder stones s/p cystolithalopaxywith Dr. Sears 11/10/2020. Patient last seen by Dr. Sears [...] 1.00, BG 206 Reports recent hospitalization at [facility] for chills, nausea, right flank [...] - appears cloudy with debris. Patient showed sd glucose monitor log for december - sugars appear to all be >230-300s. 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 Elevated LFTs 03/11/2020 Essential hypertension 02/21/2019 Fatty [...] 1 tablet by mouth once daily. Per Umm, Dr. Monson sodium chloride irrig solution (NACL 0.9% IRRIGATION BOTTLE) To use for catheter irrigation daily or as needed. Insulin [place], Disposable, (COMFORT EZ PEN NEEDLES) 29 gauge [...] once daily. Rinse mouth after use. Insulin [place], Disposable, 32 gauge x 5/16 ndle Use [...] 01/16/2023 Time: 12:38 PM documented in this encounterFost[facility]07-27-2023 NoteHNO ID: [id number] Author: Donya Estrella MD Service: Hospital Medicine [...] SUBCUTANEOUS AT BEDTIME fluticasone 50 mcg/actuation 2 Lodi (FLONASE) 2 [place]odi EACH NOSTRIL DAILY traZODone 100 mg tab(s) [...] was 12/02 this month. She went to [facility] but due to insurance issue she got transferred to [facility]. Her labs were remarkable for wbc [...] the abdomen and pelvis on 12/12/2021 at [facility] that show 2 small nonobstructive right [...] Antiplatelet Medications ( (more content not included)...[facility]07-26-2023 NoteHNO ID: [id number] Author: Donya Estrella MD Service: Hospital Medicine [...] SUBCUTANEOUS AT BEDTIME fluticasone 50 mcg/actuation 2 [place]odi (FLONASE) 2 [place] EACH NOSTRIL DAILY traZODone 100 mg tab(s) [...] was 12/02 this month. She went to [facility] but due to insurance issue she got transferred to [facility]. Her labs were remarkable for wbc [...] the abdomen and pelvis on 12/12/2021 at [facility] that show 2 small nonobstructive right [...] VTE prophylaxis approp (more content not included)...[facility]07-25-2023 NoteHNO ID: [id number] Author: Kerry Lisa MD Service: ? Author Type: Physician Type: Progress Notes Filed: 12/20/2022 4:54 PM Note Text: 42 years old with spinbifda Recurrent UTI On suprabupic cath UC showed morganella, Ertapenem started on 12/20 ID on maynor, pending recs for Abx Urology on board, [...] SUBCUTANEOUS AT BEDTIME fluticasone 50 mcg/actuation 2 Lodi (FLONASE) 2 [place]odi EACH NOSTRIL DAILY traZODone 100 mg tab(s) [...] was 12/02 this month. She went to [facility] but due to insurance issue she got transferred to [facility]. Her labs were remarkable for wbc [...] Anticoagulant AND Antip (more content not included)...[facility] 12-19-2022 NoteHNO ID: [id number] Author: Kerry Lisa MD Service: ? Author Type: Physician Type: [...] SUBCUTANEOUS AT BEDTIME fluticasone 50 mcg/actuation 2 [place]odi (FLONASE) 2 [place]odi EACH NOSTRIL DAILY traZODone 100 mg tab(s) [...] was 12/02 this month. She went to [facility] but due to insurance issue she got transferred to [facility]. Her labs were remarkable for wbc [...] VTE Prophylaxis: V (more content not included)...[facility]07-19-2023 History of Present illness Narrative* Nubia Mccullough LPN - 12/14/2022 8:33 AM EDT Scan on 12/12/2022 7:41 PM by Provider, Melanie, [place]: CT Scan documented in this encounterFostoria City Hospital07-17-2023 Discharge summary Author Dre Deal [facility] December 12, 2022 9:20pm Note Date/Time December 12, 2022 9:18 pm [facility] Medical Records Department [address] [place] [address] Emergency Department Summary 12/12/22 MR#: [id number] Acct: [id number] Name: DEBBY BAILON Rep #:[id number] : 1980 42 From: Dre Deal MD PCP: Dr. Will Barnnon MD Status:REG ER Location: ED HPI History [...] states she contacted her urologist at the [facility]. There was no response and reason she [...] % (Auto) 67.3 Lymph % (Auto) 21.6 Limestone % (Auto) 8.2 Eos % (Auto) 1.6 [...] Sl. Cloudy Urine pH 7.0 Ur Specific [place] 1.010 Urine Protein 100 H Urine Glucose [...] your Primary Care Provider. Call [facility] ([phone]) or report to the closest Emergency Room. Call 911 if necessary. 12/12/222119 <Electronically signed by Dre Deal MD> Cosigner Signature (if applicable): CC: Dr. Will Brannon MD ~ Signed [facility] Work Phone: 1(862) 864-412707-15-2023 Evaluation + Plan note Diagnostic Tests Pending * Urine Culture 12/10/22 [facility] 07-15-2023 Hospital Discharge instructions Patient Education [...] swelling in the outer vaginal area (labia) 2788-0037 [employer]. [address] [place] [address], [place] [address]. All rights reserved. This information is not intended as a substitute for professional medical care. Always follow yourpromedica def[facility] regional hospitalcare professional's instructions. Follow Up Care 12/10/2022 00:01:58 With:WILL BRANNON MD Address: [address] [place] [address]- When:2-4 days [facility] 07-15-2023 Note ORIGINAL EXAMINATION: CT OF [...] Date: 12/10/2022 3:46:59 AM Ordering Provider: [facility]07-15-2023 Note Discharge Instructions Thank you for allowing [facility] to assist you with your healthcare needs. The following is importantdischarge information regarding your hospital visit. Diagnosis from Today's Visit Flank pain What to Do Next Instructions from Your Care Team No qualifying data available. Post Acute Orders No qualifying data available. You Need to Schedule the Following Appointments Follow Up with WILL BRANNON MD When Within 2-4 days Where: [address] [place], [place] [id number]- Allergies Mushrooms (Throat swelling) Peanuts (Throat swelling) [...] blood sodium or high potassium); porphyria, or jtoviay-2-upojylwft dehydrogenase (G6PD) deficiency; or if you use [...] may report side effects to FDA at 7-297-HPT-8912. What other drugs will affect sulfamethoxazole and [...] sulfamethoxazole and trimethoprim. This includes prescription and blmq-pzc-xjbztzz medicines, vitamins, and herbal products. Not all [...] to ensure that the information provided by [employer]. ('[employer]') is accurate, up-to-date, and complete, but no guarantee is made to that effect. Drug information contained herein may be time sensitive. [employer] information has been compiled for use by healthcare practitioners and consumers in the [place] and therefore [employer] does not warrant that uses outside of the [place] are appropriate, unless specifically indicated otherwise. [facility] drug information does not endorse drugs, diagnose patients or recommend therapy. [employer] drug information isan informational resource designed to [...] effective or appropriate for any given patient. [employer] does not assume any responsibility for any aspect of healthcare administered with the aid of information [employer] provides. The information contained herein is not intended to cover all possible uses, directions, precautions, warnings, drug interactions, allergic reactions, or adverse effects. If you have questions about the drugs you are taking, check with your doctor, nurse or pharmacist. Copyright 0511-7207 [employer]. Version: 11.. Revision Date: 01/25/2021. Education Materials Bladder Infection, [...] swelling in the outer vaginal area (labia) 3079-8443 [employer]. [address] [place] [address], [place] [address]. All rights reserved. This information is not intended as a substitute for professional medical care. Always follow yourhealthcare professional's instructions. Additional Information VACCINATE! IT SAVES LIVES! Members of the community who have not yet received the COVID-19 vaccine and would like to receive it can visit one of [facility] vaccine clinics. There are many vaccine clinic locations within the [facility]. For locations and available times, please visit www.gettheshot.coronavirus.[place].gov/. It is important to note that some COVID mobile vaccine clinics are held outdoors and may be canceled in rainy or stormy conditions. To learn more about pediatric vaccinations (ages 5-11), we invite you to visit the [facility] webpage. https://www.[facility].org/pages/5611-Iybzu-Mftmyikoqju-Dymyywypdw-Ncphj-Rap stions.htmlTo learn more about the COVID-19 vaccine, we invite you to visit the CDC website for a list of frequently asked questions. https://www.cdc.gov/coronavirus/2019-ncov/vaccines/faq.html [facility] Patient Portal Access Instructions: Stay connected with your healthcare team and access your personal medical information anytime with the [facility] Patient Portal. If you would like a full copy of your medical records please contact the [facility] Medical Records Department Monday through Monday between 8a.m. and 4:30p.m. Please follow the directions below to access the portal: 1.Access the email account you provided upon registration to the hospital.2.Look for an invitation email from [facility].3.Open the email and access the invitation link: Accept Invitation to [facility]4.Fill in the required hartley to create your account. Sign into [email or web address] with your username and password that you [...] you will allow to register on the [facility] Patient Portal for access to your information. You can also access the [facility] Patient Portal on the [employer] robert. Simply click on Health Records under [employer] and then click on the EyeEm logo. HOW TO SAFELY DISPOSE OF PRESCRIPTION [...] Call your local pharmacy or go to http://SchoolChapters.Art of Defence/7K4Kd8e to find one close to you.3.Make use of household items: Use cat litter or old coffee grounds to dispose medications if other options arenot available. Mix your drugs with these household products, seal them in an airtight container andthrow it into the garbage. Call [facility]: [phone] to be sure your drugs can be [...] been reviewed and explained to me and I,UVALDO DEBBYOdalys Arthurd my current condition and have read and understand these discharge instructions. I have received a written copy of the plan/instructions. If I have questions, I am aware that I should contact my doctor. 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 Signature: Date/Time: Relationship to Patient: Witness Name/Signature: Date/Time: [facility]07-15-2023 Note ORIGINAL EXAMINATION: CT OF THE ABDOMEN [...] Sign Date: 12/10/2022 3:46:59 AM Ordering Provider: [facility]07-07-2023 History of Present illness Narrative* Cory Box PA-C - 12/02/2022 3:43 PM EDT HPI: Debby Bailon 42 yo female with neurogenic bladder here for monthly SPT irrigation and exchange He is overall doing very well, has had some cause for alarm with Pyelonephritis But with antibiotics she does well PAST MEDICAL HISTORY Diagnosis Date Amputation of left great toe ([facility]) 06/25/2020 Anxiety Arthritis started age 19 Bilateral leg edema 07/16/2018 Cervical radiculopathy 05/02/2013 Chronic pain 02/12/[address] ([facility]) 09/30/2021 Constipation due to outlet dysfunction 10/07/2021 Cyst of ovary 11/28/2011 Diabetic eye exam ([facility]) 06/17/2016 Last done: 01/25/2017 Diabetic eye exam ([facility]) 06/17/2016 Last done: 03/08/2019 DJD (degenerative joint disease), thoracic DM (diabetes mellitus), secondary, uncontrolled, 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 Elevated LFTs 03/11/2020 Essential hypertension 02/21/2019 Fatty [...] 02/12/2015 Panic attacks Paroxysmal SVT (supraventricular tachycardia) ([facility]) 07/03/2017 Per 48 Hr event monitor 06/30/2017 Primary insomnia 02/17/2016 S/P hernia repair 12/11/2017 Spina bifida (HCC) 01/06/2016 Suprapubic catheter ([facility]) Thyroid cyst 01/01/2018 Complex right sided cysts. [...] 1 tablet by mouth once daily. Per Umm, Dr. Monson loratadine (CLARITIN) 10 mg tablet [...] catheter irrigation daily or as needed. Insulin [place], Disposable, (COMFORT EZ PEN NEEDLES) 29 gauge [...] once daily. Rinse mouth after use. Insulin [place], Disposable, 32 gauge x 5/16 ndle Use [...] stoma > Monthly SPT exchange with Nurse JENIFFER Gaona, [place] * Naty Haddad LPN - 12/02/2022 3:27 PM EDT CC Supra pubic catheter in Place HPI: Debby Bailon is a 42 year old female. The patient is here now for a supra pubic catheter change with diagnosis neurogenic bladder. Procedure: Performed a catheter change. States she just returned from vacation in [place] at 0130. No fluid in bulb of [...] provider. Naty Haddad LPN documented in this encounterFostoria City Hospital06-27-2023 Evaluation + Plan note Diagnostic Tests Pending * Urine Culture 11/22/22 [facility] 06-27-2023 Hospital Discharge instructions Patient Education 11/22/2022 [...] another medicine was prescribed, you can use vuwy-vjr-caulupo medicines for pain, fever, or discomfort. If [...] when crying, sunken eyes, or dry mouth 3915-2306 [employer]. [address] [place] [address]. All rights reserved. This information is not intended as a substitute for professional medical care. Always follow yourhealthcare professional's instructions. Follow Up Care 11/21/2022 23:47:06 With:WILL BRANNON MD Address: [address] [place] [address]- When:2-4 days [facility] 06-27-2023 Note Discharge Instructions Thank you for allowing [facility] to assist you with your healthcare needs. [...] BRANNON MD When Within 2-4 days Where: [address] [place] [address]- Allergies Mushrooms (Throat swelling) Peanuts (Throat [...] pharmacies. Medication Leaflets ondansetron (oral) (on LAUREEN se angel luis) Carlos Gonzalez ODT, Mario What is the most important information I [...] may report side effects to FDA at 3-888-NAT-8710. What other drugs will affect ondansetron? Ondansetron [...] interact with ondansetron. This includes prescription and plyb-kar-pumbpic medicines, vitamins, and herbal products. Give a [...] to ensure that the information provided by [employer]. ('Multum') is accurate, up-to-date, and complete, but no guarantee is made to that effect. Drug information contained herein may be time sensitive. [employer] information has been compiled for use by healthcare practitioners and consumers in the [place] and therefore [employer] does not warrant that uses outside of the [place] are appropriate, unless specifically indicated otherwise. [employer]'s drug information does not endorse drugs, diagnose patients or recommend therapy. [employer] drug information isan informational resource designed to [...] effective or appropriate for any given patient. [employer] does not assume any responsibility for any aspect of healthcare administered with the aid of information [employer] provides. The information contained herein is not intended to cover all possible uses, directions, precautions, warnings, drug interactions, allergic reactions, or adverse effects. If you have questions about the drugs you are taking, check with your doctor, nurse or pharmacist. Copyright 9821-3353 [employer]. Version: 13.01. Revision Date: 03/18/2016. acetaminophen and [...] may report side effects to FDA at 6-533-QGJ-3841. What other drugs will affect acetaminophen and [...] affect acetaminophen and oxycodone, including prescription and prfh-bfr-wvmjacv medicines, vitamins, and herbal products. Not all [...] to ensure that the information provided by [employer]. ('Multum') is accurate, up-to-date, and complete, but no guarantee is made to that effect. Drug information contained herein may be time sensitive. [employer] information has been compiled for use by healthcare practitioners and consumers in the [place] and therefore [employer] does not warrant that uses outside of the [place] are appropriate, unless specifically indicated otherwise. [employer] drug information does not endorse drugs, diagnose patients or recommend therapy. [employer] drug information isan informational resource designed to [...] effective or appropriate for any given patient. [facility] does not assume any responsibility for any aspect of healthcare administered with the aid of information [facility] provides. The information contained herein is not intended to cover all possible uses, directions, precautions, warnings, drug interactions, allergic reactions, or adverse effects. If you have questions about the drugs you are taking, check with your doctor, nurse or pharmacist. Copyright 0637-0924 [facility] [employer]. Version: 20.03. Revision Date: 07/03/2020. sulfamethoxazole and trimethoprim (oral/injection) [...] blood sodium or high potassium); porphyria, or ddjyifp-0-ofqncrdxh dehydrogenase (G6PD) deficiency; or if you use [...] may report side effects to FDA at 8-781-ESX-3786. What other drugs will affect sulfamethoxazole and [...] sulfamethoxazole and trimethoprim. This includes prescription and wwmi-xtw-ifumczw medicines, vitamins, and herbal products. Not all [...] to ensure that the information provided by [employer]. ('[employer]') is accurate, up-to-date, and complete, but no guarantee is made to that effect. Drug information contained herein may be time sensitive. [employer] information has been compiled for use by healthcare practitioners and consumers in the [place] and therefore [employer] does not warrant that uses outside of the [place] are appropriate, unless specifically indicated otherwise. [employer] drug information does not endorse drugs, diagnose patients or recommend therapy. [employer] drug information isan informational resource designed to [...] effective or appropriate for any given patient. [employer] does not assume any responsibility for any aspect of healthcare administered with the aid of information [employer] provides. The information contained herein is not intended to cover all possible uses, directions, precautions, warnings, drug interactions, allergic reactions, or adverse effects. If you have questions about the drugs you are taking, check with your doctor, nurse or pharmacist. Copyright 3710-9717 [employer]. Version: .. Revision Date: 01/25/2021. Education Materials [...] another medicine was prescribed, you can use lsgv-red-olyzlhb medicines for pain, fever, or discomfort. If [...] when crying, sunken eyes, or dry mouth 1815-5317 [employer]. [address] [place] [address], [place] [address]. All rights reserved. This information is not intended as a substitute for professional medical care. Always follow yourhealthcare professional's instructions. Additional Information VACCINATE! IT SAVES LIVES! Members of the community who have not yet received the COVID-19 vaccine and would like to receive it can visit one of [facility] vaccine clinics. There are many vaccine clinic locations within the [facility]. For locations and available times, please visit www.gettheshot.coronavirus.[place].gov/. It is important to note that some COVID mobile vaccine clinics are held outdoors and may be canceled in rainy or stormy conditions. To learn more about pediatric vaccinations (ages 5-11), we invite you to visit the [facility] webpage. https://www.[employer].org/pages/7206-Glsvg-Vulaltxseqp-Bjqazfavje-Ctfna-Raq stions.htmlTo learn more about the COVID-19 vaccine, we invite you to visit the CDC website for a list of frequently asked questions. https://www.cdc.gov/coronavirus/2019-ncov/vaccines/faq.html [facility] [employer] [facility] Patient Portal Access Instructions: Stay connected with your healthcare team and access your personal medical information anytime with the [facility] Patient Portal. If you would like a full copy of your medical records please contact the [facility] Medical Records Department Monday through Monday between 8a.m. and 4:30p.m. Please follow the directions below to access the portal: 1.Access the email account you provided upon registration to the hospital.2.Look for an invitation email from [facility].3.Open the email and access the invitation link: Accept Invitation to [facility]4.Fill in the required hartley to create your account. Sign into [email or web address] with your username and password that you [...] you will allow to register on the [facility] Patient Portal for access to your information. You can also access the [facility] Patient Portal on the [employer]. Simply click on Health Records under [employer] and then click on the [facility] logo. [...] Call your local pharmacy or go to http://SchoolChapters.Art of Defence/2R2Mg0y to find one close to you.3.Make use of household items: Use cat litter or old coffee grounds to dispose medications if other options arenot available. Mix your drugs with these household products, seal them in an airtight container andthrow it into the garbage. Call [facility]: [phone] to be sure your drugs can be [...] aware that I should contact my doctor. 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 Signature: Date/Time: Relationship to Patient: Witness Name/Signature: Date/Time: [facility]06-27-2023 Note ORIGINAL EXAMINATION: CT OF THE [...] Date: 11/22/2022 2:06:56 AM Ordering Provider: [facility] [place][note 2]06-27-2023 Note ORIGINAL EXAMINATION: CT OF THE ABDOMEN [...] Sign Date: 11/22/2022 2:06:56 AM Ordering Provider: [facility]06-23-2023 History of Present illness Narrative* Patrick Ghosh RN - 11/18/2022 4:53 PM EDT Images from the original note were not included. ET/WOCN Nursing Consult Topic: ET/WOCN Consultation Note ET Outcome: Pt came to see PEPPER Marx in the clinic today. Pt and [...] 0-1 times per day Current pouching system: [place] New Image 2 3/4 convex flange, closed end pouch. No accessories. Current wearing time: 3-4 days for flange, pouch daily Recommendations: Skin Care: Antifungal powder as needed. stomahesive powder to erythema and stoma injury site, No Sting Liquid Skin Barrier Pouching System: changed to flat flange. [place] New Image 2 3/4 flat flange cut opening 1/8 larger than stom, strip paste (or moldable ring), drainable pouch (or closed end pouch) Wear Time: flange 3-4 days Other: Provided Hy tape (waterproof tape) for beach vacation. Midline Abdominal Incision: Healed scar Comment: instructed to get 2% miconazole powder for fungal rashes before vacation. Time Increment: 1 hour TOMMY Myers RN CWOCN [facility] nursing pager [phone] (M-F 7a-4p, Sat, Samra, Holiday 7a-3p) * Patrick Ghosh RN - 11/18/2022 4:17 [place] [address] Patient: Debby Bailon Patient [address]: [address] [place] [address] Preferred Gender: female Date of : 1980 Type of Stoma: End Descending Colostomy Diagnosis: Constipation K59.0 OSTOMY SUPPLY ORDER FORM Pouch: [place]: 2 3/4 closed end pouch #97348 30 day use - 60 pouches Wafer: Ton: New Image CeraPlus 2 3/4 Flat, with tape # 54178 30 day use - 10 flanges ( 2 boxes) Adhesive Removers: Ton Adapt [place]odi #2380 30 day use - 1 can Paste: Coloplast Brava Strip Paste # 40637 30 day use - 1 Box Powder: ConvaTec Stomahesive # 62305 30 day use - 1 Bottle Skin Sealant: 3M No Sting, 30/Box # 3344 30 day use - 1 Box Antifungal powder: Coloplast Microguard powder #4547 30 day use - 1 Bottle as needed. Refills: 11 Attending Physician: Dr. López: Office [phone] For immediate authorization, please contact the physician s office. [facility] Nurse: TOMMY Luna, CWOCN Note: You can buy 2% Miconazole powder from over the counter. SIGNATURE: Patrick Ghosh RN PATIENT NAME: Debby Bailon DATE: November 18, 2022 TIME: 4:17 PM CONTACT #: [phone] documented in this encounterFost[facility]06-23-[facility] Instructions* Patient Instructions* Araseli Renae APRN.PEPPER - 11/18/2022 3:52 PM EDT Follow pouching instructions from stoma team Take 2 senna and MOM of daily for 3 weeks until follow up Follow up in 3 weeks for stoma check Call with any questions or concerns. documented in this encounterFostoria City Hospital06-23-2023 History of Present illness Narrative* Araseli [...] suggestions on new pouching system. Anorectal: deferred Esl Professor present: Yes Assessment Medical Decision Making: Assessment [...] of treatment plan: low documented in this encounterFostoria City Hospital06-20-2023 Miscellaneous Notes* Telephone Encounter - Regina [...] to the Clinic to be evaluated by SURVEYOR'S ASSISTANT and stoma therapy for correct pouching system and sizing. Asked that she call the office back at [phone] to make those appointments in the next day or so. She states she understands and thanked me for the phone call. Signature Regina Colvin RN November 15, 2022 documented in this encounterFostoria City Hospital06-06-2023 Miscellaneous Notes* Telephone Encounter - Naty Haddad LPN - 11/01/2022 4:45 PM EDT Faxed order for leg bags to [facility]. Naty Haddad LPN documented in this encounterFostoria City Hospital06-06-2023 History of Present illness Narrative* Naty [...] being more active. Would like sent to [facility]. Cory notified. Assessment/Plan: Successful catheter change. Return for catheter changes as planned. Scheduled for annual visit with provider and to have cathter changed in November. Naty Haddad LPN documented in this encounterFostoria City Hospital05-12-2023 History of Present illness Narrative* Josesito Verdin LPN - 10/07/2022 8:49 AM EDT Scan on 10/07/2022 1:49 AM by External Provider, [place]: Consultation - Emergency Medicine documented in this encounterFostoria City Hospital05-09-2023 History of Present illness Narrative* Naty [...] planned. Naty Haddad LPN documented in this encounterFostoria City Hospital04-11-2023 History of Present illness Narrative* Naty [...] planned. Naty Haddad LPN documented in this encounterFostoria City Hospital04-07-2023 History of Present illness Narrative* Josesito Verdin LPN - 09/02/2022 9:51 AM EDT Scan on 09/01/2022 4:13 PM by External Provider: Consultation - Endocrinology documented in this encounterFostoria City Hospital04-05-2023 Miscellaneous Notes* Telephone Encounter - Jeannie Ashley - 08/31/2022 1:40 PM EDT Called PT LVM to call back and schedule US and yearly diabetic eye exam. Jeannie BHAGAT * Telephone Encounter - Keiry Clifton - 08/27/2022 1:58 PM EDT Rang busy. * Telephone Encounter - Denae Barraza MA - 08/25/2022 12:02 PM EDT Please schedule patient for Ultrasound of Thyroid. Dr. Rae for yearly diabetic eye exam. Denae Barraza MA documented in this encounterFostoria City Hospital04-05-2023 Miscellaneous Notes* Telephone Encounter - Jerad [...] get in contact with DR. Monson her telephone interceptor operator. documented in this encounterFostoria City Hospital03-22-2023 History of Present illness Narrative* Denae Barraza MA - 08/17/2022 11:45 AM EDT Scan on 08/16/2022 6:12 PM by External Provider: Consultation - Emergency Medicine Scan on 08/16/2022 6:01 PM by External Provider: X-ray Denae Barraza MA documented in this encounterFostoria City Hospital03-07-2023 History of Present illness Narrative* Naty [...] planned. Naty Haddad LPN documented in this encounterFostoria City Hospital02-22-2023 Procedure note* Farhat Sears MD - [...] abx Farhat Sears MD documented in this encounterFostoria City Hospital02-22-2023 History of Present illness Narrative* TIGIST [...] specimen collected. TIGIST Haywood documented in this encounterFostoria City Hospital02-22-2023 Nurse Note* TIGIST Haywood - 07/20/2022 1:14 PM EST Actual procedure/procedure scheduled: Yes Performing provider/scheduled provider: Yes Patient was roomed in: [facility] Patient arrived in the room at: 1307 [...] Education Session: None Instruction Provided To: Patient Delivery Helper Present: no Discipline: Nursing Learning Topic: SURVIVAL SKILLS: Symptom Management Patient Evaluation: Verbalizes understanding: Yes Supplemental Material Given: Written Material Instructed By TIGIST Haywood In Department Urology . documented in this encounterFostoria City Hospital02-22-2023 History of Present illness Narrative* Farhat [...] complications 12/05/2017 Dysthymic disorder Depression (non-psychotic), sees SURVEYOR'S 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 Elevated LFTs 03/11/2020 Essential hypertension 02/21/2019 Fatty [...] 12/11/2017 Spina bifida (HCC) 01/06/2016 Suprapubic catheter ([facility]) Thyroid cyst 01/01/2018 Complex right sided cysts. [...] catheter irrigation daily or as needed. Insulin [place], Disposable, (COMFORT EZ PEN NEEDLES) 29 gauge [...] once daily. Rinse mouth after use. Insulin [place], Disposable, 32 gauge x 5/16 ndle Use [...] 07/20/2022 Time: 1:03 PM documented in this encounterFostoria City Hospital02-20-2023 History of Present illness Narrative* Denae Barraza MA - 07/18/2022 4:19 PM EST Scan on 07/15/2022 3:35 PM by External Provider: Miscellaneous Procedures Scan on 07/15/2022 7:01 PM by External Provider: X-ray Please review Denae Barraza MA documented in this encounterFostoria City Hospital02-20-[address] [facility] 1:57pm Note Date/Time July 18, 2022 1:57pm [facility] Medical Records Department [address] [place] [address] Discharge Summary 07/18/22 1356 MR#: [id number] Acct: [id number] Name: DEBBY BAILON Rep #:[id number] : 1980 41 From: Rigo Encarnacion DO PCP: Dr. Will Brannon MD Status:ADM [facility] Prov[facility] Date of Admission: 07/13/22 Primary Care Physician: Dr. Will Brannon MD Consultations 07/13/22 04:39 Consult: Onc/Wound/network/telecom engineer Routine Comment: Reason for Consult:: diabetic foot wound, left foot cellulitis Consult: Podiatry Routine Consulting Provider: Will Gou Reason for Consult: left foot cellulitis EMERGENT [...] Self Care Charges/Coding Visit Charges Inpatient E&M: 75730 Disch Hosp >30min 07/18/22 1357 <Electronically signed by Rigo Encarnacion DO> Cosigner Signature (if applicable): CC: Dr. Rigo Encarnacion DO; Dr. Will Brannon MD~ Signed [facility] Work Phone: 1(802) 467-534202-20-[address] Encarnacion [facility] July 18, 2022 1:56pm Note Date/Time July 18, 2022 1:51pm [facility] Medical Records Department [address] [place] [address] Instructions for Home/Discharge Instructions 07/18/22 1349 MR#: [id number] Acct: [id number] Name: DEBBY BAILON Rep #:[id number] : [...] can be placed): Home, Self Care 07/18/22 1356<Electronically signed by Rigo Encarnacion DO>Rigo Encarnacion DO CC: ERIC Guo; Dr. Will Brannon MD; Dr. Quynh Boyer DO; Dr. Brittani Panda MD; Dr. Bev Ngo MD ~ Signed [facility] Work Phone: 1(883) 694-159302-20-[address] Encarnacion [facility] July 18, 2022 1:49pm Note Date/Time July 18, 2022 8:46am [facility] Medical Records Department [address] [place] [address] Progress Note - Hospitalist 07/18/22 0840 MR#: [id number] Acct: [id number] Name: DEBBY BAILON Rep #:[id number] : 1980 41 From: Rigo Encarnacion DO PCP: Dr. Will Brannon MD Status:ADM IN [facility] Reason for Visit Reason for Visit: Diagnoses [...] unspecified (07/13/22) Chronic kidney disease, unspecified (07/13/22) nursing home (current) use of insulin (07/13/22) Subjective Subjective [...] Cosigner Signature (if applicable): CC: ~ Signed [facility] Work Phone: 1(136) 136-543302-20-[address] Ngo [facility] July 18, 2022 1:17pm Note Date/Time July 18, 2022 1:17pm [facility] Medical Records Department [address] [facility] [place] [address] Progress Note - Infect Disease 07/18/22 1315 MR#: [id number] Acct: [id number] Name: CHON BAILONOdalys Alvarenga Rep #:[id number] : 1980 41 From: Bev newton MD PCP: Dr. Will Brannon MD Status:ADM IN [facility] Physical Exam Narrative Feeling ok, no fever, [...] Cosigner Signature (if applicable): CC: ~ Signed [facility] Work Phone: [phone]) 514-765302-20-[address] Wing [facility] July 18, 2022 7:35am Note Date/Time July 18, 2022 7:35am [facility] Medical Records Department [address] [place] [address] Progress Note 07/18/22 0734 MR#: [id number] Acct: [id number] Name: DEBBY BAILON Rep #:[id number] : 1980 41 From: Xavier Wing DPM PCP: Dr. Will Brannon MD Status:ADM IN Location: [facility] ND803-1 Subjective Subjective PAtient 3 days post op. [...] Cosigner Signature (if applicable): CC: ~ Signed [facility] Work Phone: [phone]) 812-883802-19-[address] Boyer [facility] July 17, 2022 6:00pm Note Date/Time July 17, 2022 6:00pm [facility] Medical Records Department [address] [place] [address] Progress Note - Hospitalist 07/17/22 1077 MR#: [id number] Acct: [id number] Name: DEBBY BAILON Rep #:[id number] : 1980 41 From: Quynh Boyer DO PCP: Dr. Will Brannon MD Status:ADM IN Location: [facility] SJ886-9 Reason for Visit Reason for Visit: Diagnoses [...] unspecified (07/13/22) Chronic kidney disease, unspecified (07/13/22) nursing home (current) use of insulin (07/13/22) Subjective Subjective [...] team: 35minutes Charges/Coding Visit Charges Inpatient E&M: 71735 Subs Hosp L2 07/17/22 1800 <Electronically signed by Quynh Boyer DO> Cosigner Signature (if applicable): CC: ~ Signed [facility] Work Phone: 1(751) 201-310302-19-[address] Wing [facility] July 17, 2022 7:28am Note Date/Time July 17, 2022 7:28am [facility] Medical Records Department [address] [place] [address] Progress Note 07/17/22 0726 MR#: [id number] Acct: [id number] Name: DEBBY BAILON Rep #:[id number] : 1980 41 From: Xavier Wing DPBayron PCP: Dr. Will Brannon MD Status:ADM IN [facility] Subjective Subjective Patient seen resting comfortably bedside, [...] Cosigner Signature (if applicable): CC: ~ Signed [facility] Work Phone: [phone]) 810-869102-18-[address] Boyer [facility] July 16, 2022 2:49pm Note Date/Time July 16, 2022 2:49pm [facility] Medical Records Department [address] [place] [address] Progress Note - Hospitalist 07/16/22 1444 MR#: [id number] Acct: [id number] Name: DEBBY BAILON Rep #:[id number] : 1980 41 From: Quynh Boyer DO PCP: Dr. Will Brannon MD Status:ADM IN Location: [facility] SY172-6 Reason for Visit Reason for Visit: Diagnoses [...] unspecified (07/13/22) Chronic kidney disease, unspecified (07/13/22) nursing home (current) use of insulin (07/13/22) Subjective Subjective [...] GFR (MDRD) Non-Af 86, BUN/Creatinine Ratio 12.7, Bbcgsut141, Calcium 8.9, Total Bilirubin 0.30, AST 28, [...] team: 36minutes Charges/Coding Visit Charges Inpatient E&M: 62366 Subs Hosp L2 07/16/22 1449 <Electronically signed by Quynh Boyer DO> Cosigner Signature (if applicable): CC: ~ Signed [facility] Work Phone: [phone]) 120-483102-18-[address] Wing [facility] July 16, 2022 10:47am Note Date/Time July 16, 2022 10:47am [facility] Medical Records Department [address] [place] [address] Progress Note 07/16/22 1043 MR#: [id number] Acct: [id number] Name: DEBBY BAILON Rep #:[id number] : 1980 41 From: Xavier Wing DPM PCP: Dr. Will Brannon MD Status:ADM IN Location: [facility] IL809-1 Subjective Subjective Patient seen resting comfortably bedside, [...] GFR (MDRD) Non-Af 86, BUN/Creatinine Ratio 12.7, Vhxfwmu533, Calcium 8.9, Total Bilirubin 0.30, AST 28, [...] Cosigner Signature (if applicable): CC: ~ Signed [facility] Work Phone: [phone]) 408-188902-17-[address] Boyer [facility] July 15, 2022 7:37pm Note Date/Time July 15, 2022 7:30pm [facility] Medical Records Department [address] [place] [address] Progress Note - Hospitalist 07/15/221928 MR#: [id number] Acct: [id number] Name: DEBBY BAILON Rep #:[id number] : 1980 41 From: Quynh Boyer DO PCP: Dr. Will Brannon MD Status:[facility]M IN [facility] Reason for Visit Reason for Visit: Diagnoses [...] unspecified (07/13/22) Chronic kidney disease, unspecified (07/13/22) nursing home (current) use of insulin (07/13/22) Subjective Subjective [...] team: 35minutes Charges/Coding Visit Charges Inpatient E&M: 80163 Subs Hosp L2 07/15/221936 <Electronically signed by Quynh Boyer DO> Cosigner Signature (if applicable): CC: ~ Signed [facility] Work Phone: 1(946) 453-782602-17-[address] Boyer [facility] July 15, 2022 7:29pm Note Date/Time July 14, 2022 6:38pm [facility] Medical Records Department [address] [place] [address] Progress Note - Hospitalist 07/14/22 1837 MR#: [id number] Acct: [id number] Name: DEBBY BAILON Rep #:[id number] : 1980 41 From: Quynh Boyer DO PCP: Dr. 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 Ngo [facility] July 14, 2022 10:27am Note Date/Time July 14, 2022 10:27am [facility] Medical Records Department [address] [place] [address] Consultation - Infectious Dx 07/14/22 1023 MR#: [id number] Acct: [id number] Name: DEBBY BAILON Rep #:[id number] : 1980 41 From: Bev newton MD PCP: Dr. Will Brannon MD Status:ADM IN Location: [place] [address] Assessment & Plan Assessment/Plan (1) Diabetes mellitus [...] performed and neg except as noted above. [facility] Medical History Anxiety and depression Arthritis Manley's [...] Rich Rucker MD at 12:02 EST , ADDENDUM: 07/13/22 1318 IMPRESSION: Osteomyelitis of [...] Ngo MD> Cosigner Signature (if applicable): CC: DPM Dr. Will Guo; Dr. Will Brannon MD; Dr. Brittani Panda MD; Dr.Robert Abi MD~ Signed [facility] Work Phone: [phone]) 539-484302-16-[address] Guo [facility] July 14, 2022 7:24am Note Date/Time July 14, 2022 6:58am [facility] Medical Records Department [address] [place] [address] Progress Note 07/14/22 0658 MR#: [id number] Acct: [id number] Name: UVALDODEBBY Alvarenga Rep #:[id number] : 1980 41 From: Will Guo DPM PCP: Dr. Will Brannon MD Status:ADM IN Location: [facility] MY580-0 Subjective Subjective Patient was seen this morning [...] Rich Rucker MD at 12:02 EST , ADDENDUM: 07/13/22 1318 IMPRESSION: Osteomyelitis of [...] Rich Rucker MD at 12:02 EST , Physical Exam Const alert, oriented x3 [...] Cosigner Signature (if applicable): CC: ~ Signed [facility] Work Phone: [phone]) 191-481202-15-[address] Boyer [facility] July 13, 2022 4:19pm Note Date/Time July 13, 2022 4:14pm [facility] Medical Records Department [address] [place] [address] Progress Note - Hospitalist 07/13/221609 MR#: [id number] Acct: [id number] Name: DEBBY BAILON Rep #:[id number] : 1980 41 From: Quynh Boyer DO PCP: Dr. Will Brannon MD Status:ADM [facility] Note Patient was seen and examined [...] talked briefly withinfectious diseases about her care. 07/13/221618 <Electronically signed by Quynh Boyer DO> Cosigner Signature (if applicable): CC: ~ Signed [facility] Work Phone: 1(154) 271-657702-15-[address] Guo [facility] July 13, 2022 12:08pm Note Date/Time July 13, 2022 12:08pm [facility] Medical Records Department [address] [place] [address] Consultation 07/13/22 1201 MR#: [id number] Acct: [id number] Name: DEBBY BAILON Rep #:[id number] : 1980 41 From: Will Guo DPM PCP: Dr. Will Brannon MD Status:ADM IN Location: [facility] KH165-0 Assessment & Plan Assessment/Plan (1) Cellulitis of [...] is resting comfortably in bed. No f/c/n/v. [facility] Medical History (Updated 07/13/22 @ 12:[address] Will Guo, ERIC) Anxiety and depression Arthritis Manley's palsy Cellulitis [...] 85.3 H, Lymph % (Auto) 6.6 L, Limestone % (Auto) 6.9, Eos % (Auto) 0.1, [...] 77.8 H, Lymph % (Auto) 12.7 L, Limestone % (Auto) 7.7, Eos % (Auto) 0.2, [...] 0.50, AST 39 H, ALT 45, Alkaline Bcmgffnrbfn58, C-React Prot Ext Range 60.40 H, Total [...] Brannon MD; Dr. Brittani Panda MD~ Signed [facility] Work Phone: [phone]) 767-928202-15-2023 Discharge summary Author Alexander Hooks [facility] July 13, 2022 7:25am Note Date/Time July 13, 2022 1:00am [facility] Medical Records Department [address] [facility] [place] [address] Emergency Department Summary 07/13/22 MR#: [id number] Acct: [id number] Name: DEBBY BAILON Rep #:[id number] : 1980 41 From: Alexander Hooks DO PCP: Dr. Will Brannon MD Status:ADM IN Location: [facility] YP753-8 HPI History of Present Illness Chief Complaint: [...] foot infection and comes in for evaluation. [facility] Medical History (Updated 07/13/22 @ 04:59 by [...] mg tablet 20 mg PO 2200 fluid 04/02/19 [History Last Taken 01/18/22] furosemide 40 mg [...] Reaction Status Date / Time ceftriaxone [From [facility]] Allergy Hives Verified 07/12/22 22:59 mushroom Allergy [...] should be admitted to the medical service. [facility] medicine was contacted and they do agree [...] 85.3 H Lymph % (Auto) 6.6 L Limestone % (Auto) 6.9 Eos % (Auto) 0.1 [...] II, Pyrexia Disposition Disposition: Acute Care Hospital [facility] What to do if you have Problems For any increased pain, shortness of breath, bleeding, nausea or vomiting, chestpain, or any unexpected problems, contact your Primary Care Provider. Call [facility] ([phone]) or report to the closest Emergency Room. Call 911 if necessary. 07/13/22 0725 <Electronically signed by Alexander Hooks DO> Cosigner Signature (if applicable): CC: Dr. Will Brannon MD ~ Signed [facility] Work Phone: [phone]) 689-137502-15-2023 History and physical note Author Dr. Panda [facility] July 13, 2022 4:20am Note Date/Time July 13, 2022 3:52am [facility] Medical Records Department [address] [place] [address] H&P Exam - Hospitalist 07/13/22 0347 MR#: [id number] Acct: [id number] Name: DEBBY BAILON Rep #:[id number] : 1980 41 From: Brittani Panda MD PCP: Dr. Will Brannon MD Status:ADM IN Location: [facility] ST248-7 HPI - General General Date of Admission: 07/13/22 Date of Service: 07/13/22 Chief Complaint: Fever HPI Narrative DEBBY BAILON, is a 41-year-old female with a history of spina bifida with colostomy since September and suprapubic cath for 4 years, type 2 diabetes mellitus, CKD stage III unclear subtype, chronic left foot wounds who presented to [facility] 07/13/2022 for fevers and right foot cellulitis since Monday. She reports chronic wounds on her left foot at the heel and bottom of first MTPsince November which has been managed by her sales porter and had been improving however 1 week ago she fell and went to [place] ER. Foot x-ray unremarkable but they suspected [...] likely need to be revisited and clarified. 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 Will Brannon MD; Dr. Brittani Panda MD~ Signed [facility] Work Phone: [phone] 407-837702-07-2023 History of Present illness Narrative* Naty Haddad CURATOR ZOOLOG[employer] MUSEUM - 07/05/2022 3:36 PM EST CC Supra [...] planned. Naty Haddad LPN [facility] Hospital Discharge instructions Patient Education 07/04/2022 [...] intravenous (IV) antibiotics to fight the infection. 3941-1184 [employer]. [address] [place] [address], [place] [address]. All rights reserved. This information is not intended as a substitute for professional medical care. Always follow yourhealthcare professional's instructions. Follow Up Care 07/03/2022 22:36:37 With:your sales porter Address:Unknown When:2-4 days With:WILL BRANNON Address: [address] [place] [address]- [facility] (1) When:2-4 days [facility] 02-06-2023 Note Discharge Instructions Thank you for allowing [facility] to assist you with your healthcare needs. The following is importantdischarge information regarding your hospital visit. Diagnosis from Today's Visit Fall Left leg pain What to Do Next Instructions from Your Care Team No qualifying data available. Post Acute Orders No qualifying data available. You Need to Schedule the Following Appointments Follow Up with your sales porter When Within 2-4 days Follow Up with WILL BRANNON When Within 2-4 days Where: [address] [place], [place] [id number]- [facility] (1) Allergies Mushrooms (Throat swelling) Peanuts (Throat [...] intravenous (IV) antibiotics to fight the infection. 0274-5755 [employer] [address] [place] [address], [place] [address]. All rights reserved. This information is not intended as a substitute for professional medical care. Always follow yourhealthcare professional's instructions. Additional Information VACCINATE! IT SAVES LIVES! Members of the community who have not yet received the COVID-19 vaccine and would like to receive it can visit one of [facility] vaccine clinics. There are many vaccine clinic locations within the [facility]. For locations and available times, please visit www.[facility] hospitalot.coronavirus.[place].org. It is important to note that some COVID mobile vaccine clinics are held outdoors and may be canceled in rainy orstormy conditions. To learn more about pediatric vaccinations (ages 5-11), we invite you to visit the [facility] webpage. https://www.[facility].org/pages/5584-Ntrvo-Rlnijavuuxm-Whqzlqlybg-Dshct-Oqo stions.htmlTo learn more about the COVID-19 vaccine, we invite you to visit the [facility] website for a list of frequently asked questions. https://VEEDIMS/assets/Hklfslbk-wwn-Elfretve/rxxyi-Mfocxdo-Ysblnfkcik _Asked-Questions.pdf [facility] Patient Portal Access Instructions: Stay connected with your healthcare team and access your personal medical information anytime with the [facility] Patient Portal. If you would like a full copy of your medical records please contact the [facility] Medical Records Department Monday through Monday between 8a.m. and 4:30p.m. Please follow the directions below to access the portal: 1.Access the email account you provided upon registration to the hospital.2.Look for an invitation email from [facility].3.Open the email and access the invitation link: Accept Invitation to [facility]4.Fill in the required hartley to create your account. Sign into [email or web address] with your username and password that you [...] you will allow to register on the [facility] Patient Portal for access to your information. You can also access the [facility] Patient Portal on the [employer] robert. Simply click on Health Records under [employer] and then click on the EyeEm logo. HOW TO SAFELY DISPOSE OF PRESCRIPTION [...] Call your local pharmacy or go to http://SchoolChapters.Art of Defence/4D3Kg9r to find one close to you.3.Make use of household items: Use cat litter or old coffee grounds to dispose medications if other options arenot available. Mix your drugs with these household products, seal them in an airtight container andthrow it into the garbage. Call [facility]: [phone] to be sure your drugs can be [...] aware that I should contact my doctor. 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 Signature: Date/Time: Relationship to Patient: Witness Name/Signature: Date/Time: [facility]02-05-2023 Note ORIGINAL EXAMINATION: TWO XRAY VIEWS [...] Sign Date: 07/03/2022 11:59:54 PM Ordering Provider: DAMIR BLUNT [facility]02-05-2023 Note ORIGINAL EXAMINATION: 6 XRAY VIEWS OF [...] Sign Date: 07/03/2022 11:59:29 PM Ordering Provider: [address]05-2023 Note ORIGINAL EXAMINATION: TWO XRAY VIEWS OF [...] Sign Date: 07/03/2022 11:59:54 PM Ordering Provider: [address]2023 Note ORIGINAL EXAMINATION: 6 XRAY VIEWS OF [...] Sign Date: 07/03/2022 11:59:29 PM Ordering Provider: [facility] History of Present illness Narrative* Naty Haddad LPN - 06/07/2022 4:13 PM EST CC Supra [...] planned. Naty Haddad LPN documented in [facility]23 Evaluation + Plan note Extracted from: Title:History and Physical Author:JERAD GONZALEZ 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LABOR STANDARDS Date:06/05/22 1. Frequent UTI 2. Type 2 [...] bacteria. Last culture collected and resulted from [facility] on 05/15/2023 showed mixed fred. Patient [...] Pending * Urine Culture 06/04/22 [facility] 01-08-2023 Hospital Discharge instructions Patient Education [...] or mouth. Supplies needed: Soap. Alcohol-based hand carpenter and joiner. Standard cleaning products. Disinfectants, such as bleach. [...] water are not available, use alcohol-based hand carpenter and joiner. Avoid touching your face, mouth, nose, or [...] water. Air-dry your dishes or use a lcac operator. Do not share dishes or eating utensils. [...] certain germs and not others. Read the shoe lining fitter's instructions or read online resources to determine [...] minutes after each use, or according to shoe lining fitter's instructions. Wash reusable cleaning cloths and sanitize [...] water are not available, use alcohol-based hand carpenter and joiner. In general: Stay home except to get [...] for Professionals in Infection Control and Epidemiology: professionals.site.apic.org/axxcyshi-hv-uodp/xcv-krmoiwymjn-xcoiywa/home/ Summary It is important to know how [...] 02/21/2009 Document Revised: 09/10/2019 Document Reviewed: 08/09/2019 [employer] Patient Education 2020 [employer]. Follow Up Care 06/04/2022 22:10:16 With:BEV NGO MD Address: [address] [facility] [address] [facility]/[place] [phone] When:5 to 7 days Comments:Call to make an appt with this infectious disease doctor due to frequent UTI's, unusual bacteria inurine, antibiotic resistance, and multiple allergies to antibiotics. With:WILL BRANNON MD Address: [address] [place] [address]- When:2-4 days [facility] 01-08-2023 Nurse Discharge summary Patient discharged home. Discharge instructions provided. Patient was educated on irrigating her suprapubic catheter as she should continue to do so once a day until seeing urology Monday. Patient was instructed to call the infectious disease doctor provided to her in her discharge instructions for further evaluation of her urine. Patient understood discharge instructions. [facility]01-08-2023 Note Discharge Instructions Thank you for allowing [facility] to assist you with your healthcare needs. The following is importantdischarge information regarding your hospital visit. Your Care Team [facility] Your Diagnosis Frequent UTI [...] discharge paperwork. Please call first thing Monday to secure an appointment. Please discuss the [...] allergies to antibiotics. Where: [address] [facility] [address] CLINIC[facility] [address]- [phone] Follow Up with WILL BRANNON MD When Within 2-4 days Where: [address] [place] [address]- The Following Activity and Diet Have Been [...] or mouth. Supplies needed: Soap. Alcohol-based hand carpenter and joiner. Standard cleaning products. Disinfectants, such as bleach. [...] water are not available, use alcohol-based hand carpenter and joiner. Avoid touching your face, mouth, nose, or [...] water. Air-dry your dishes or use a lcac operator. Do not share dishes or eating utensils. [...] certain germs and not others. Read the shoe lining fitter's instructions or read online resources to determine [...] minutes after each use, or according to shoe lining fitter's instructions. Wash reusable cleaning cloths and sanitize [...] water are not available, use alcohol-based hand carpenter and joiner. In general: Stay home except to get [...] for Professionals in Infection Control and Epidemiology: professionals.site.apic.org/wzcdmaiz-fw-whpb/jsv-gsekcmrwhz-aiuvcbd/home/ Summary It is important to know how [...] 02/21/2009 Document Revised: 09/10/2019 Document Reviewed: 08/09/2019 Elsevier Patient Education 2020 Elsevier Inc. Additional Information VACCINATE! IT SAVES LIVES! Members of the community who have not yet received the COVID-19 vaccine and would like to receive it can visit one of [facility] vaccine clinics. There are many vaccine clinic locations within the [facility]. For locations and available times, please visit https://gettheshot.coronavirus.[place].gov/. It is important to note that some COVID mobile vaccine clinics are held outdoors and may be canceled in rainy or stormy conditions. To learn more about pediatric vaccinations (ages 5-11), we invite you to visit the [facility] webpage. https://www.[employer].org/pages/0688-Coymp-Ihnvslilwkk-Ukuqthajjc-Ubetc-Nxw stions.htmlTo learn more about the COVID-19 vaccine, we invite you to visit the [facility] website for a list of frequently asked questions. https://VEEDIMS/assets/Grfdqjyi-rqj-Jrwocutb/xoniq-Qhrskla-Jeuvoeasha _Asked-Questions.pdf [facility] Patient Portal Access Instructions: Stay connected with your healthcare team and access your personal medical information anytime with the [facility] Patient Portal.If you would like a full copy of your medical records, please contact the [facility] Medical Records Department, Monday through Monday between 8a.m. and 4:30p.m. Please follow the directions below to access the portal: 1.Access the email account you provided upon registration to the hospital.2.Look for an invitation email from [facility].3.Open the email and access the invitation link: Accept Invitation to [facility]4.Fill in the required hartley to create your account. Sign into [email or web address] with your username and password that you [...] you will allow to register on the [facility] Patient Portal for access to your information. You can also access the [facility] Patient Portal on the [employer]. Simply click on Health Records under [employer] and then click on the EyeEm logo. HOW TO SAFELY DISPOSE OF PRESCRIPTION [...] Call your local pharmacy or go to http://SchoolChapters.Art of Defence/1Y3Zq6b to find one close to you.3.Make use of household items: Use cat litter or old coffee grounds to dispose medications if other options arenot available. Mix your drugs with these household products, seal them in an airtight container andthrow it into the garbage. Call [facility]: [phone] to be sure your drugs can be [...] aware that I should contact my doctor. 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 Signature: Date/Time: Relationship to Patient: Witness Name/Signature: Date/Time: [facility]01-08-2023 Note Chief Complaint Pt treated recently for UTI. Now reports kidney and bladder pain, odor to urine, fever, weakness. History of Present Illness 41-year-old female with past medical history significant for neurogenic bladder, type 2 diabetes mellitus, spina bifida, migraines, insomnia, depression, hyperlipidemia frequent UTIs, neurogenic bowel with colostomy bag. Patient presented to [facility] emergency department on 06/04/2022 with reports of [...] with meropenem and given a dose of Adelanto and Toradol. This morning patient is afebrile and hemodynamically stable with adequate oxygen saturations on room air. No leukocytosis. Differential is unremarkable. Patient states that she had her catheter changed on 05/10/2022 at her urologist office. She then presented to [place] emergency department on 05/15/2022 with concerns for UTI. She was discharged with a prescription for Bactrim. Culture showed mixe d fred. Patient states that she had Bactrim filled at [facility] however there is no record of this [...] 3+ bacteria. Last culturecollected and resulted from [facility] on 05/15/2023 showed mixed fred. Patient [...] GONZALEZ on 06/05/2022 10:27 AM [facility]12-13-2022 History of Present illness Narrative * [...] planned. Naty Haddad LPN documented in [facility] Hospital Discharge instructions Patient Education 04/27/2022 15:05:19 Pyelonephritis, Adult, Prql-xr-Nwny Pyelonephritis, Adult Pyelonephritis is an infection that [...] even if youstart to feel better. Take ofqz-bkp-odyowpg and prescription medicines only as told by [...] 06/22/2005 Document Revised: 03/19/2019 Document Reviewed: 03/19/2019 [employer] Patient Education 2020 [employer]. Follow Up Care 04/23/2022 23:58:47 With:WILL BRANNON MD Address: [address] [place] [address]- When:3-7 days Comments:Please call your doctor to schedule your post-hospital follow-up appointment. [facility] Jennifer 11-30-2022 Note Discharge Instructions Thank you for allowing [facility] to assist you with your healthcare needs. The following is importantdischarge information regarding your hospital visit. Your Care Team [facility] Your Diagnosis Pyelonephritis, acute Type [...] schedule your post-hospital follow-up appointment. [facility] [address] [facility] [place] [address]- The Following Activity and Diet Have Been [...] Days Dosage expressed as trimethoprim Pickup at [facility] NOT GIVEN-YOU RECEIVED IV ANTIOBIOTICS/ PLEASE [...] (in the evening) NOT GIVEN Pharmacy Information [facility]: [address], [place] [phone] Please take this list to your next [...] even if youstart to feel better. Take jlcu-ynl-inpfrek and prescription medicines only as told by [...] 06/22/2005 Document Revised: 03/19/2019 Document Reviewed: 03/19/2019 Elsevier Patient Education 2020 [employer] Additional Information VACCINATE! IT SAVES LIVES! Members of the community who have not yet received the COVID-19 vaccine and would like to receive it can visit one of [facility] vaccine clinics. There are many vaccine clinic locations within the [facility]. For locations and available times, please visit https://gettheshot.coronavirus.[place].gov/. It is important to note that some COVID mobile vaccine clinics are held outdoors and may be canceled in rainy or stormy conditions. To learn more about pediatric vaccinations (ages 5-11), we invite you to visit the [facility] webpage. https://www.[employer].org/pages/9017-Bnzrd-Wftwjswlbbr-Yhawfbcjxk-Oidrr-Qrz stions.htmlTo learn more about the COVID-19 vaccine, we invite you to visit the [facility] website for a list of frequently asked questions. https://[facility].org/assets/Nuogddva-lgp-Iotpgqjf/sqaox-Ncgkqrz-Yvutrsgucd _Asked-Questions.pdf [facility] [employer] [facility] Patient Portal Access Instructions: Stay connected with your healthcare team and access your personal medical information anytime with the [facility] Patient Portal.If you would like a full copy of your medical records, please contact the [facility] Medical Records Department, Monday through Monday between 8a.m. and 4:30p.m. Please follow the directions below to access the portal: 1.Access the email account you provided upon registration to the [facility].2.Look for an invitation email from [facility].3.Open the email and access the invitation link: Accept Invitation to [facility]4.Fill in the required hartley to create your account. Sign into [email or web address] with your username and password that you [...] you will allow to register on the [facility] Patient Portal for access to your information. You can also access the [facility] Patient Portal on the Telelogos. Simply click on Health Records under Sequenta and then click on the EyeEm logo. HOW TO SAFELY DISPOSE OF PRESCRIPTION [...] Call your local pharmacy or go to http://SchoolChapters.Art of Defence/1V5Xq0d to find one close to you.3.Make use of household items: Use cat litter or old coffee grounds to dispose medications if other options arenot available. Mix your drugs with these household products, seal them in an airtight container andthrow it into the garbage. Call [facility]: [phone] to be sure your drugs can be [...] a CHART COPY. Signatures Patient Education Materials Pyelonephritis, Adult, Ufcw-zq-Vohn Medication Leaflets My discharge plan and instructions have been reviewed and explained to me and I,DEBBY BAILONd my current condition and have read and understand these discharge instructions. I have received a written copy of the plan/instructions. If I have questions, I am aware that I should contact my doctor. 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 Signature: Date/Time: Relationship to Patient: Witness Name/Signature: Date/Time: [facility]11-29-2022 Note Date of Service 04/26/2022 Subjective Patient [...] GONZALEZ on 04/26/2022 12:46 PM [facility]11-28-2022 Note Date of Service 04/25/2022 Subjective [...] GONZALEZ on 04/25/2022 03:39 PM [facility]11-27-2022 Note Date of Service 04/24/2022 Chief Complaint Pt c/o vomiting, 102 degree temp, odor in foot and urine bag, weakness, vomiting. History of Present Illness 41-year-old female with past medical history significant for neurogenic bladder, type 2 diabetes mellitus, spina bifida, migraines, insomnia, depression, hyperlipidemia frequent UTIs, neurogenic bowel with colostomy bag. Patient presented to [facility] emergency department 04/24/2022 with a 3- day [...] GONZALEZ on 04/24/2022 04:24 PM [facility]11-27-2022 Evaluation + Plan noteExtracted from: Title:History [...] and may include grammatical and/or spelling errors. [facility] 10-25-2022 Hospital Discharge instructions Patient Education 03/22/2022 [...] child is at least 4 years old. under 3 months old: Ask your child [...] in a child 2 years or older. 9941-4366 [employer]. [address] [place] [address]. All rights reserved. This information is not intended as a substitute for professional medical care. Always follow yourhealthcare professional's instructions. Follow Up Care 03/22/2022 17:10:04 With:WILL BRANNON MD Address: [address] [place] [address]- When:2-4 days [facility] 10-25-2022 Note Discharge Instructions Thank you for allowing [facility] to assist you with your healthcare needs. [...] BRANNON MD When Within 2-4 days Where: [address] [place] [address]- Allergies Contrast dye Latex Mushrooms Peanuts Rocephin [...] may report side effects to FDA at 3-313-FGW-4138. What other drugs will affect clindamycin? Sometimes it is not safe to use certain medications at the same time. Some drugs can affect your blood levels of other drugs you take, which may increase side effects or make the medications less effective. Other drugs may affect clindamycin, including prescription and rlim-fjw-iblhljw medicines, vitamins, and herbal products. Tell your [...] to ensure that the information provided by [employer]. ('Mult[employer]') is accurate, up-to-date, and complete, but no guarantee is made to that effect. Drug information contained herein may be time sensitive. [employer] information has been compiled for use by healthcare practitioners and consumers in the [place] and therefore [employer] does not warrant that uses outside of the [place] are appropriate, unless specifically indicated otherwise. [employer] drug information does not endorse drugs, diagnose patients or recommend therapy. [employer] drug information isan informational resource designed to [...] effective or appropriate for any given patient. [employer] does not assume any responsibility for any aspect of healthcare administered with the aid of information [employer] provides. The information contained herein is not intended to cover all possible uses, directions, precautions, warnings, drug interactions, allergic reactions, or adverse effects. If you have questions about the drugs you are taking, check with your doctor, nurse or pharmacist. Copyright 2127-2289 [employer]. Version: 12.. Revision Date: 11/20/2018. Education Materials [...] child is at least 4 years old. under 3 months old: Ask your child [...] in a child 2 years or older. 9098-4026 [employer]. [address] [place] [address]. All rights reserved. This information is not intended as a substitute for professional medical care. Always follow yourhealthcare professional's instructions. Additional Information VACCINATE! IT SAVES LIVES! Members of the community who have not yet received the COVID-19 vaccine and would like to receive it can visit one of [facility] vaccine clinics. There are many vaccine clinic locations within the [facility]. For locations and available times, please visit [email or web address]. It is important to note that some COVID mobile vaccine clinics are held outdoors and may be canceled in rainy orstormy conditions. To learn more about pediatric vaccinations (ages 5-11), we invite you to visit the [facility] webpage. https://www.[facility].org/pages/1956-Vlfvr-Mgfeuyxwdsk-Uwfkkvpaxj-Zdxdj-Erd stions.htmlTo learn more about the COVID-19 vaccine, we invite you to visit the [facility] website for a list of frequently asked questions. [email or web address]/[email or web address]-[email or web address] _[email or web address].pdf [facility] Patient Portal Access Instructions: Stay connected with your healthcare team and access your personal medical information anytime with the [facility] Patient Portal. If you would like a full copy of your medical records please contact the [facility] Medical Records Department Monday through Monday between 8a.m. and 4:30p.m. Please follow the directions below to access the portal: 1.Access the email account you provided upon registration to the [facility].2.Look for an invitation email from [facility].3.Open the email and access the invitation link: Accept Invitation to [facility]4.Fill in the required hartley to create your account. Sign into [email or web address] with your username and password that you [...] you will allow to register on the [facility] [employer] Patient Portal for access to your information. You can also access the [facility] Patient Portal on the [employer] robert. Simply click on Health Records under cashcloudData and then click on the [facility] logo. [...] Call your local pharmacy or go to http://bit.Art of Defence/1F5Yd2h to find one close to you.3.Make use of household items: Use cat litter or old coffee grounds to dispose medications if other options arenot available. Mix your drugs with these household products, seal them in an airtight container andthrow it into the garbage. Call [facility]: [phone] to be sure your drugs can be [...] aware that I should contact my doctor. 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 Signature: Date/Time: Relationship to Patient: Witness Name/Signature: Date/Time: [facility]omijfiz20-22-1874 History of Present illness Narrative * Naty Haddad LPN - 03/15/2022 3:43 PM EDT CC Supra [...] for catheter changes as planned. Cory Box, MPAS, MT, PA-C as needed. Naty Haddad LPN documented in this encounterFostoria City [facility]10-03-2022 History of Present illness Narrative* Tulio [...] complications 12/05/2017 Dysthymic disorder Depression (non-psychotic), sees SURVEYOR'S 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 Elevated LFTs 03/11/2020 Essential hypertension 02/21/2019 Fatty [...] 08/23/2018 Panic attacks Paroxysmal SVT (supraventricular tachycardia) ([facility]) 07/03/2017 Per 48 Hr event monitor 06/30/2017 Primary insomnia 02/17/2016 S/P hernia repair 12/11/2017 Spina bifida (HCC) 01/06/2016 Suprapubic catheter ([facility]) Thyroid cyst 01/01/2018 Complex right sided cysts. [...] catheter irrigation daily or as needed. Insulin [place], Disposable, (COMFORT EZ PEN NEEDLES) 29 gauge [...] once daily. Rinse mouth after use. Insulin [place], Disposable, 32 gauge x 5/16 ndle Use [...] CORONAVIRUS Tulio Pompa MD documented in this encounterFostoria City Hospital10-03-2022 History of Present illness Narrative* Xavier Josue MD - 02/28/2022 7:38 AM EDT HISTORY AND PHYSICAL Debby Alvarenga Uvaldo 1980 REFERRING PHYSICIAN: Self CHIEF COMPLAINT: Follow Up (thyroid) HPI: HPI: [...] Echogenicity cannot be determined, 1 point Shape: Kocvz-sdkr-bcph, 0 points Margin: Smooth, 0 points Echogenic [...] complications 12/05/2017 Dysthymic disorder Depression (non-psychotic), sees SURVEYOR'S 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 Elevated LFTs 03/11/2020 Essential hypertension 02/21/2019 Fatty [...] 08/23/2018 Panic attacks Paroxysmal SVT (supraventricular tachycardia) ([facility]) 07/03/2017 Per 48 Hr event monitor 06/30/2017 Primary insomnia 02/17/2016 S/P hernia repair 12/11/2017 Spina bifida (HCC) 01/06/2016 Suprapubic catheter ([facility]) Thyroid cyst 01/01/2018 Complex right sided cysts. US 12/2017, biopsy per Dr. Josue 01/23/2018 benign. Repeat US in a year. Type 2 diabetes mellitus with albuminuria ([facility]) 10/18/2016 Type 2 diabetes mellitus with hyperglycemia, with long-term current use of insulin ([facility]) 07/26/2021 Type 2 diabetes mellitus with proteinuria ([facility]) 02/19/2016 Ulcer of left foot ([facility]) 02/21/2017 Ventral hernia without obstruction or gangrene [...] foot x2 PAST SURGICAL HISTORY OF 07/2015 Bowels stoma PAST SURGICAL HISTORY OF 09/30/2021 Laparoscopic [...] or as needed. 1000 mL 11 Insulin [place], Disposable, (COMFORT EZ PEN NEEDLES) 29 gauge [...] mouth after use. 1 Bottle 3 Insulin [place], Disposable, 32 gauge x 5/16 ndle Use [...] Xavier Josue III, MD documented in this encounterFostoria City Hospital09-21-2022 History of Present illness Narrative* Fawn Herrera MD - 02/16/2022 5:49 PM EDT HISTORY AND PHYSICAL Debby Colette Bailon 1980 REFERRING PHYSICIAN: Will Brannon MD [...] Echogenicity cannot be determined, 1 point Shape: Nxmcz-kvjk-wtdz, 0 points Margin: Smooth, 0 points Echogenic [...] complications 12/05/2017 Dysthymic disorder Depression (non-psychotic), sees SURVEYOR'S 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 Elevated LFTs 03/11/2020 Essential hypertension 02/21/2019 Fatty [...] 1 tablet by mouth once daily. Per Umm, Dr. Monson loratadine (CLARITIN) 10 mg tablet [...] catheter irrigation daily or as needed. Insulin [place], Disposable, (COMFORT EZ PEN NEEDLES) 29 gauge [...] once daily. Rinse mouth after use. Insulin [place], Disposable, 32 gauge x 5/16 ndle Use [...] by the nurse and reviewed by me Nursing Notes: Lavonne Patel RN 02/16/2022 3:07 [...] Straightforward Fawn Herrera MD documented in this encounterFostoria City Hospital09-21-2022 Nurse Note* Lavonne Patel RN - [...] NONE Lavonne Patel RN documented in this encounterFostoria City Hospital09-20-2022 Hospital Discharge instructions Patient Education 02/15/2022 [...] swelling in the outer vaginal area (labia) 7583-8871 [employer]. [address] [place] [address]. All rights reserved. This information is not intended as a substitute for professional medical care. Always follow yourhealthcare professional's instructions. Follow Up Care 02/15/2022 17:21:40 With:WILL BRANNON MD Address: [address] [place] [address]- When:2-4 days [facility] 09-20-2022 Note Discharge Instructions Thank you for allowing [facility] to assist you with your healthcare needs. The following is importantdischarge information regarding your hospital visit. Diagnosis from Today's Visit Flank pain What to Do Next Instructions from Your Care Team No qualifying data available. Post Acute Orders No qualifying data available. You Need to Schedule the Following Appointments Follow Up with WILL BRANNON MD When Within 2-4 days Where: [address] [place] [address]- Allergies Contrast dye Latex Mushrooms Peanuts Rocephin [...] swelling in the outer vaginal area (labia) 3010-4091 [employer]. [address] [place] [address]. All rights reserved. This information is not intended as a substitute for professional medical care. Always follow yourhealthcare professional's instructions. Additional Information VACCINATE! IT SAVES LIVES! Members of the community who have not yet received the COVID-19 vaccine and would like to receive it can visit one of [facility] vaccine clinics. There are many vaccine clinic locations within the [facility]. For locations and available times, please visit [email or web address]. It is important to note that some COVID mobile vaccine clinics are held outdoors and may be canceled in rainy orstormy conditions. To learn more about pediatric vaccinations (ages 5-11), we invite you to visit the [facility] webpage. https://www.[email or web address].org/pages/0713-Wxbyp-Ljhcghvxebx-Dgyisnrngu-Uoful-Rui stions.htmlTo learn more about the COVID-19 vaccine, we invite you to visit the [facility] website for a list of frequently asked questions. [email or web address]-[email or web address]/weulf-[email or web address]-Csesyrghdt _Asked-Questions.pdf [facility] [employer] Patient Portal Access Instructions: Stay connected with your healthcare team and access your personal medical information anytime with the [facility] Patient Portal. If you would like a full copy of your medical records please contact the [facility] Medical Records Department Monday through Monday between 8a.m. and 4:30p.m. Please follow the directions below to access the portal: 1.Access the email account you provided upon registration to the [facility].2.Look for an invitation email from [facility].3.Open the email and access the invitation link: Accept Invitation to [facility]4.Fill in the required hartley to create your account. Sign into [email or web address] with your username and password that you [...] you will allow to register on the [facility] Patient Portal for access to your information. You can also access the [facility] Patient Portal on the [employer] robert. Simply click on Health Records under Sequenta and then click on the EyeEm logo. HOW TO SAFELY DISPOSE OF PRESCRIPTION [...] Call your local pharmacy or go to http://Get Smart Content/9H3Iw7n to find one close to you.3.Make use of household items: Use cat litter or old coffee grounds to dispose medications if other options arenot available. Mix your drugs with these household products, seal them in an airtight container andthrow it into the garbage. Call [facility]: [phone] to be sure your drugs can be [...] aware that I should contact my doctor. 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 Signature: Date/Time: Relationship to Patient: Witness Name/Signature: Date/Time: [facility]09-20-2022 Note ORIGINAL EXAMINATION: CT OF THE [...] PM Ordering Provider: ELIZABETH GARAY [facility]09-20-2022 Note ORIGINAL EXAMINATION: CT OF THE [...] Sign Date: 02/15/2022 9:23:10 PM Ordering Provider: [facility]09-20-2022 Note ORIGINAL HISTORY: Back pain COMPARISON: No [...] Sign Date: 02/15/2022 6:47:00 PM Ordering Provider: [facility]09-20-2022 Note ORIGINAL HISTORY: Back pain COMPARISON: No [...] Sign Date: 02/15/2022 6:47:00 PM Ordering Provider: [facility]09-20-2022 Evaluation + Plan note Diagnostic Tests Pending * Urine Culture 02/15/22 [facility] 09-20-2022 Miscellaneous Notes* Telephone Encounter - Denae Barraza MA - 02/15/2022 10:09 AM EDT Patient notified and voiced understanding. Please schedule patient for general surgery consult. Denae Barraza MA * Telephone Encounter - Netta Higgins PA-C - 02/15/2022 8:57 AM EDT Let patient know that US still shows that large nodule and overall it appears stable. However giventhe size, I do want her to see surgery about it. Netta Higgins PA-C documented in this encounterFostoria City Hospital09-19-2022 History of Present illness Narrative* Mikala Williamson, RT(R) - 02/14/2022 4:00 PM EDT Radiology Service [...] 14, 2022 4:13 PM documented in this encounterFostoria City Hospital09-15-2022 Miscellaneous Notes* Telephone Encounter - Josesito Verdin LPN - 02/10/2022 12:12 PM EDT Pt notified of same. Josesito Verdin LPN * Telephone Encounter - Netta Higgins PA-C - 02/10/2022 12:02 PM EDT Let patient know that labs and urine appear stable. Thanks. Netta Higgins PA-C documented in this encounterFostoria City Hospital09-14-2022 History of Present illness Narrative* Netta [...] Cyst of ovary 11/28/2011 Diabetic eye exam ([facility]) 06/17/2016 Last done: 01/25/2017 Diabetic eye exam ([facility]) 06/17/2016 Last done: 03/08/2019 DJD (degenerative joint disease), thoracic DM (diabetes mellitus), secondary, uncontrolled, 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 Elevated LFTs 03/11/2020 Essential hypertension 02/21/2019 Fatty [...] catheter irrigation daily or as needed. Insulin [place], Disposable, (COMFORT EZ PEN NEEDLES) 29 gauge [...] once daily. Rinse mouth after use. Insulin [place], Disposable, 32 gauge x 5/16 ndle Use [...] Reported on 02/09/2022) Blood-Glucose Meter (ACCU-CHEK HOPE) [facility] Dispense 1 meter kit. Dx: Other DM [...] months. Netta Higgins PA-C documented in this encounterFostoria City Hospital09-13-2022 History of Present illness Narrative* Naty Haddad CURATOR [employer]OOLOG[employer] MUSEUM - 02/08/2022 1:28 PM EDT CC Supra [...] change. Return for catheter changes as planned. JENIFFER Gaona, MT, PA-C as needed. Naty Haddad LPN documented in this encounterFostoria City Hospital08-17-2022 Miscellaneous Notes* Letter - Mammography Coordinator - 01/12/2022 5:42 PM EDT January 12, 2022 PID: [id number] Debby Bailon [address] [address] Dear Ms. Bailon, We are pleased to [...] report will be [facility] as part of your permanent medical record and are available for your continuing care. Thank you for allowing us to help in meeting your health care needs. Sincerely, Dr. Martinez Interpreting Radiologist [facility] (Normal over 40) documented in this encounterFostoria City Hospital08-17-2022 History of Present illness Narrative* Robyn Hein Krishgermán Lubin - 01/12/2022 4:00 PM EDT Radiology Service [...] 12, 2022 4:12 PM documented in this encounterFostoria City Hospital08-05-2022 History of Present illness Narrative* Naty [...] needed. Naty Haddad LPN documented in this encounterFostoria City Hospital07-14-2022 History of Present illness Narrative* Coreen Huerta RN - 12/09/2021 10:34 AM EDT Misc/PERCUTANEOUS & ID SKIN TESTING Wheal and Flare Diameter (mm) Patient has been identified by name and date of : Yes . Skin test applied by : Coreen Huerta RN Interpreted By: Jodee Burroughs M.D. Medications obtained from [facility]. * Clinical significant reactions are regarded as a wheal diameter greater than or equal to 3 mm with a flare diameter greater or equal to 6mm. Time applied: 1026 Time read: 1041 Negative control: 50% GLYCERIN/50% cocas ALLERGENS: EPICUTANEOUS 1. Negative control: 50% Glycerin/50% cocas P: W = 0 mm F = 0 mm 2. Ceftriaxone 100mg/mL Lot:[id number] Exp:12/10/21 P: W = 0 mm F = 0 mm 3. Fentanyl 50mcg/mL Lot:[id number] Exp:12/10/2021 P: W = 0 mm F = 0 mm 4. Liodcaine 10mg/mL: Lot:[id number] Exp:12/10/2021 P: W = 0 mm F = 0 mm 5. Midazolam 5mg/mL: Lot:[id number] Exp:12/10/2021 P: W = 0 mm F = 0 mm 6. Propofol 10mg/mL: Lot:[id number] Exp:12/10/2021 P: W = 0 mm F = 0 mm 7. Rocuronium 10mg/mL: Lot:[id number] Exp:12/10/2021 P: W = 0 mm F [...] properly. Yellow controlled substance [facility]st[facility]. Hydrocortisone 2.5 % cream applied to [...] 1 tablet by mouth once daily. Per Umm, Dr. Monson loratadine (CLARITIN) 10 mg tablet [...] catheter irrigation daily or as needed. Insulin [place], Disposable, (COMFORT EZ PEN NEEDLES) 29 gauge [...] once daily. Rinse mouth after use. Insulin [place], Disposable, 32 gauge x 5/16 ndle Use once daily with Victoza (Patient not taking:Reported on 12/03/2021 ) Blood-Glucose Meter (ACCU-CHEK HOPE) [facility] Dispense 1 meter kit. Dx: Other DM [...] complications 12/05/2017 Dysthymic disorder Depression (non-psychotic), sees SURVEYOR'S 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 Elevated LFTs 03/11/2020 Essential hypertension 02/21/2019 Fatty [...] 12/11/2017 Spina bifida (HCC) 01/06/2016 Suprapubic catheter ([facility]) Thyroid cyst 01/01/2018 Complex right sided cysts. US 12/2017, biopsy per Dr. Josue 01/23/2018 benign. Repeat US in a year. 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) 10/18/2016 Type 2 diabetes mellitus with hyperglycemia, with long-term current use of insulin (HCC) 07/26/2021 Type 2 diabetes mellitus with proteinuria ([facility]) 02/19/2016 Ulcer of left foot (HCC) 02/21/2017 [...] F = 0 mm 2. Ceftriaxone 100mg/mL Lot:[id number] Exp:12/10/21 P: W = 0 mm F = 0 mm 3. Fentanyl 50mcg/mL Lot:[id number] Exp:12/10/2021 P: W = 0 mm F = 0 mm 4. Liodcaine 10mg/mL: Lot:[id number] Exp:12/10/2021 P: W = 0 mm F = 0 mm 5. Midazolam 5mg/mL: Lot:[id number] Exp:12/10/2021 P: W = 0 mm F = 0 mm 6. Propofol 10mg/mL: Lot:[id number] Exp:12/10/2021 P: W = 0 mm F = 0 mm 7. Rocuronium 10mg/mL: Lot:[id number] Exp:12/10/2021 P: W = 0 mm F [...] Discussed with: Dr. Burroughs documented in this encounterFostoria City Hospital07-08-2022 History of Present illness Narrative* Cory [...] change. Return for catheter changes as planned. JENIFFER Gaona, [place], [place] as needed. Naty Haddad LPN documented in this encounterFostoria City Hospital07-01-2022 Miscellaneous Notes* Telephone Encounter - Regina Colvin RN - 11/26/2021 10:08 AM EDT SPECIALTY CARE COORDINATION FOLLOW-UP NOTE Spoke to Debby. In a MyChart message from Debby she states: I have [...] to go to any ER today particularly [facility] if possible but she was not sure if she could find a ride. I explained that whatever she decided that she needs to be seen today. She agreed and said she would go to the ER today. Signature Regina Colvin RN November 26, 2021 documented in this encounterFostoria City Hospital06-27-2022 History of Present illness Narrative* Nubia Mccullough LPN - 11/22/2021 3:18 PM EDT See DC summary for appt on Monday11/26/21. Scan on 11/22/2021 11:33 AM by External Provider: Discharge Summary Maria Luisa Mccullough LPN documented in this encounterFostoria City Hospital06-15-2022 Miscellaneous Notes* Telephone Encounter - Naty [...] Haddad LPN * Telephone Encounter - Naty Vince WATERS - 11/08/2021 1:08 PM EDT Called patient, no answer. Left message. Message for patient when returns call: needs yearly appointment with urology physician since it hasbeen over a year. Naty Haddad LPN documented in this encounterFostoria City Hospital06-01-2022 History of Present illness Narrative* Kati Antoine RN - 10/27/2021 3:59 PM EDT ET/WOCN Nursing Consult Topic: ET/WOCN Consultation Note Outcome: Patient and spouse in A30 for post-op visit. [facility] spouse will be caring [...] hour Kati Antoine RN, BSN, CWOCN [place], MSN, SLIP MAKER, WCCT * Kati Antoine RN - 10/27/2021 3:49 [place] [address] Patient: Debby Bailon Patient [address]: [address] [place] [address] Preferred Gender: female Date of : 1980 Type of Stoma: End Descending Colostomy Diagnosis: Colonic Dysmotility K59.9 OSTOMY SUPPLY ORDER FORM Pouch: [place]: #[id number] [place] New Image Closed Opaque Pouch 30/box 30 day use - 2 Boxes Wafer: Ton: New Image FlexWear 2 3/4 Convex with tape # [id number] 30 day use - 2 Boxes Adhesive Removers: Coloplast Brava [place] # [id number] 30 day use - 2 cans Odor Eliminator Drops: [place] Adapt Lubricating Deodorant # [id number] 30 day use - 1 Bottle Powder: ConvaTec Stomahesive # [id number] 30 day use - 1 Bottle Refills: 11 Attending Physician: Dr. López For immediate authorization, please contact the physician s office. [facility] Nurse: TOMMY Augustin, CWOCN Note: na SIGNATURE: Kati Antoine RN PATIENT NAME: Debby Bailon DATE: October 27, 2021 TIME: 3:49 PM CONTACT #: [phone] EMAIL: documented in this encounterFostoria City Hospital06-01-2022 History of Present illness Narrative* Sandra López, DO - 10/27/2021 1:53 PM EDT COLORECTAL [...] by mouth twice daily with meals. Per Mavis Monson lisinopril (ZESTRIL, PRINIVIL) 5 mg tablet [...] or as needed. 1000 mL 11 Insulin [place], Disposable, (COMFORT EZ PEN NEEDLES) 29 gauge [...] mouth after use. 1 Bottle 3 Insulin [place], Disposable, 32 gauge x 5/16 ndle Use once daily with Victoza 100 Each 5 Blood-Glucose Meter (ACCU-CHEK HOPE) [facility] Dispense 1 meter kit. Dx: Other DM [...] No induration , does not look infected Esl Professor present: Yes Assessment Assessment: Debby Bailon is a 40 year old female who is 4 weeks status post lap end colostomy for ODS . Plan Plan: Continue stoma care, miralax or MOM as needed. Follow up as needed SANDRA LÓPEZ DO documented in this encounterFostoria City Hospital05-06-2022 Miscellaneous Notes* Telephone Encounter - Ban [...] with update. Thank you. documented in this encounterFostoria City Hospital04-27-2022 History of Present illness Narrative* Nasrin [...] hour Nasrin Florez MA, BSN, RN-BC, CWOCN [facility] Nursing- Please place consult via [employer]. Thank you. (M-F: [phone], Weekends & Holidays : [phone]) documented in this encounterFostoria City Hospital04-27-2022 Miscellaneous Notes* Telephone Encounter - Wilbur Zafar PA-C - 09/22/2021 9:24 [address] EDT Good morning Dr. López, I saw this patient for PACC this morning for upcoming colostomy and diagnostic laparoscopy scheduled for 09/30/2021. Patient is on glimepiride and insulin for T2DM. Patient's A1C in 07/2021 was elevated at 10.5%. Please let me know if you have any concerns proceeding with surgery. Thank you, Wilbur Zafar PA-C [facility] PACC documented in this encounterFostoria City Hospital04-27-2022 History and physical note * Wilbur Zafar PA-C - 09/22/2021 8:50 AM EDT [...] Morbid Obesity With Bmi of 40.0-44.9, Adult ([facility]) Chronic Pain Neurogenic Bladder Hydronephrosis, Right Spina Bifida (Hcc) Neurogenic Bowel Primary Insomnia Type 2 Diabetes Mellitus With Proteinuria ([facility]) Diabetic Eye Exam ([facility]) Type 2 Diabetes Mellitus With Albuminuria ([facility]) Paroxysmal Svt (Supraventricular Tachycardia) ([facility]) Dm (Diabetes Mellitus), Secondary, Uncontrolled, W/Renal Complications Thyroid Cyst Migraine Without Aura and Without Status Migrainosus, Not Intractable Medicare Annual Wellness Visit, Subsequent Mixed Hyperlipidemia History of Recurrent [place] History of Kidney Stones Bilateral Leg Edema Djd (Degenerative Joint Disease), Thoracic Suprapubic Catheter ([facility]) Essential Hypertension Lesion of Uterus Abnormal Vaginal Bleeding History of 2019 Novel Coronavirus Disease (Covid-19) Fatty Liver Elevated Lfts Amputation of Left Great Toe (Hcc) Bladder Stone Hyponatremia Type 2 Diabetes Mellitus With Hyperglycemia, With Long-Term Current Use of Insulin (Hcc) History of Manley's Palsy Subjective CHIEF COMPLAINT: Pre-op visit, colonic dysmotility HPI: Debby Bailon is a 40 year old female presenting [...] complications 12/05/2017 Dysthymic disorder Depression (non-psychotic), sees SURVEYOR'S 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 Elevated LFTs 03/11/2020 Essential hypertension 02/21/2019 Fatty [...] 08/23/2018 Panic attacks Paroxysmal SVT (supraventricular tachycardia) ([facility]) 07/03/2017 Per 48 Hr event monitor 06/30/2017 Primary insomnia 02/17/2016 S/P hernia repair 12/11/2017 Spina bifida (HCC) 01/06/2016 Suprapubic catheter ([facility]) Thyroid cyst 01/01/2018 Complex right sided cysts. US 12/2017, biopsy per Dr. Joseu 01/23/2018 benign. Repeat US in a year. [...] by mouth twice daily with meals. Per Mavis Monson Yes lisinopril (ZESTRIL, PRINIVIL) 5 mg [...] irrigation daily or as needed. Yes Insulin [place], Disposable, (COMFORT EZ PEN NEEDLES) 29 gauge [...] Patient not taking: Reported on 08/02/2021 Insulin [place], Disposable, 32 gauge x 5/16 ndle Use once daily with Victoza Blood-Glucose Meter (ACCU-CHEK HOPE) [facility] Dispense 1 meter kit. Dx: Other DM [...] VACCINATION STATUS: Not vaccinated, prior infection - 2020 REVIEW OF SYSTEMS: PAIN ASSESSMENT: Pain Pain [...] 432 QTC Calculation (Bazett) 462 Calculated P [place] 18 Calculated R [place] 51 Calculated T [place] 28 Impression NORMAL SINUS RHYTHM NORMAL ECG [...] Morbid obesity with BMI of 40.0-44.9, adult ([facility]) Assessment: Body mass index is 41.23 kg/m [...] minimal chronic microvascular ischemic changes, follows with [facility] neuro, OV 08/26/21. Spina bifida ([facility]) Assessment: Dx at age 33, s/p spine surgery x 2 in 2013. Essential hypertension Assessment: Compliant on RX, BP today 142/76. Mixed hyperlipidemia Assessment: Compliant on RX. Paroxysmal SVT (supraventricular tachycardia) ([facility]) Assessment: Pt reports h/o palpitations, managed on propranolol. RRR on exam today, ECG pending. Neurogenic bladder Assessment: S/p suprapubic catheter. Type 2 diabetes mellitus with hyperglycemia, with long-term current use of insulin ([facility]) Assessment: Uncontrolled on glimepiride and insulin. Does [...] Been Initiated: Orders placed by surgeon in [facility]. Planned Anesthetic: General Instructions Given to Patient: Instructions located in the after visit summary. Patient given verbal and written preop instructions and voices comprehension and compliance. SIGNATURE: Wilbur Zafar PA-C PATIENT NAME: Debby Bailon DATE: September 21, 2021 TIME: 11:53 AM documented in this encounterFostoria City Hospital04-27-2022 Instructions* Patient Instructions* Wilbur Zafar PA-C - 09/22/2021 8:50 AM EDT PATIENT PREOPERATIVE INSTRUCTIONS Sandra López DO has scheduled you for your procedure at this surgery center: [facility] [place] Scheduling Office: [phone] --[address] [place] [address]. Please read below carefully for your personalized [...] call the Monday before. Your surgeon s medical office scheduler will tell you what time to call the office. - If you have not reached the departmental medical office scheduler by 5 P.M., call [phone] after 5 P.M. the day before your surgery. Please be aware that emergency situations arise, which may delay or change your surgical time. If this happens, we will notify you as soon as possible and regret any inconvenience. If you already have an Advance Directive, please fax a copy to [phone] or email to for it to be [...] your chart that day. documented in this encounterFostoria City Hospital04-14-2022 History of Present illness Narrative* RT [...] DATA: Not applicable SIGNED BY: RT Amira(R) September 09, 2021 10:57 AM documented in this encounterFostoria City Hospital04-14-2022 History of Present illness Narrative* RT Amira(R) - 09/09/2021 10:40 AM EDT Radiology Service [...] MR; Exam(s) Completed: Head: IAC/CPA SIGNATURE: RT Amira(R) PATIENT NAME: Debby Bailon DATE: September 09, 2021 TIME: 12:01 PM documented in this encounterFostoria City Hospital04-08-2022 Miscellaneous Notes* Telephone Encounter - Angeline [...] To follow up with office or via [facility] with any questions that arise. Signature Angeline [...] the date in Thanks, documented in this encounterFostoria City Hospital04-05-2022 History of Present illness Narrative* Naty [...] planned. Naty Haddad LPN documented in this encounterFostoria City Hospital04-01-2022 Miscellaneous Notes* Telephone Encounter - Ban Hanson LPN - 08/27/2021 8:44 AM EDT Faxed EMG orders and pertinent information to [facility] Outpatient services per patient request. Ban Hanson LPN documented in this encounterFostoria City Hospital03-31-2022 History of Present illness Narrative* Jaimee Carbajal SUSAN.DIRECTOR LABOR STANDARDS - 08/26/2021 3:30 PM EDT Images from the original note were not included. [facility] Neurologic [place] New Patient visit New Patient Consultation August 25, 2021 HPI: Ms. Bailon presents today secondary to issues of numbness to L foot. She states that over 8years ago she started having foot numbness. Symptoms are continuing to worsen at this time. Found out 8 years ago she had spina bifida. States she used to follow with neurology throughout [facility] but hasnot been seen in some [...] legs. Had EMG many years ago through [facility]; imaging noted from 08/19/13. Last lumbar MRI was a few years agoaround 2016 possibly. States she tried to go [facility] records yesterday but was unable to obtain [...] Cyst of ovary 11/28/2011 Diabetic eye exam ([facility]) 06/17/2016 Last done: 01/25/2017 Diabetic eye exam ([facility]) 06/17/2016 Last done: 03/08/2019 DJD (degenerative joint disease), thoracic DM (diabetes mellitus), secondary, uncontrolled, 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 Elevated LFTs 03/11/2020 Essential hypertension 02/21/2019 Fatty [...] 1 tablet by mouth once daily. Per Umm, Dr. Monson loratadine (CLARITIN) 10 mg tablet [...] catheter irrigation daily or as needed. Insulin [place], Disposable, (COMFORT EZ PEN NEEDLES) 29 gauge [...] once daily. Rinse mouth after use. Insulin [place], Disposable, 32 gauge x 5/16 ndle Use once daily with Victoza Blood-Glucose Meter (ACCU-CHEK HOPE) [facility] Dispense 1 meter kit. Dx: Other DM [...] Abs Lymph 1.00 - 4.00 k/uL 3.03 [place]% % 7.6 Abs [place] <0.87 k/uL 0.91 (H) Eosin% % 1.8 [...] of spina bifida with surgical intervention in 2013 x2 (L3-S2 laminectomy). Other hx includes DM [...] on 08/26/21 CONSULT TO NEUROLOGY Jaimee Carbajal APRN.DIRECTOR LABOR STANDARDS I spent a total of 60 minutes on the date of the service which included preparing to see the patient, [id number] patient care, completing clinical documentation, obtaining and/or reviewing separately obtained history, performing a medically appropriate examination, counseling and educating the pat ient/family/caregiver and ordering medications, tests, or procedures. documented in this encounterFostoria City Hospital03-30-2022 Miscellaneous Notes* Telephone Encounter - Angeline Roberts RN - 08/25/2021 2:27 PM EDT SPECIALTY CARE COORDINATION FOLLOW-UP NOTE Martin study completed. Pt set up with a virtual visit at this time- agreeable to appointment date and time. Has not been contacted by coordinator- will follow up again Signature Angeline Roberts RN August 25, 2021 documented in this encounterFostoria City Hospital03-29-2022 Miscellaneous Notes* Telephone Encounter - Angeline Roberts RN - 08/24/2021 4:21 PM EDT SPECIALTY CARE COORDINATION FOLLOW-UP NOTE Call placed to patient as requested. No answer. Message left. Just checking in to see that the sitzmarker study had been scheduled. Number left is she would liketo schedule with a [facility] facility. [phone] If getting done locally- Pt to call the local hospital or imaging centers herself to see if they can complete for her- she has the orders printed with her and the instructions Information provided on how to fax reports in and how to mail the CD images in. Checking in to see that the junior project coordinator from had contacted her to set up an appointment with Dr. W[place]ster or [place]- can also schedule through appointment line. Can mychart back or call back into the office with further questions. Number left. Signature Angeline Roberts RN August 24, 2021 documented in this encounterFostoria City Hospital03-25-2022 History of Present illness Narrative* RT Antony(R) - 08/20/2021 4:00 PM EDT Radiology Service [...] 20, 2021 3:53 PM documented in this encounterFostoria City Hospital02-28-2022 History of Past illness Narrative* Problem [...] disorder, not elsewhere classified 01/06/2016 Overview: [facility] Threatened , antepartum 06/30/2010 04/07/2011 Supervision of normal first 06/30/2010 04/07/2011 documented as of this encounter (statuses as of 10/27/2021) [facility] of Past illness Narrative* Problem [...] disorder, not elsewhere classified 01/06/2016 Overview: [facility] Threatened , antepartum 06/30/2010 04/07/2011 Supervision of normal first 06/30/2010 04/07/2011 documented as of this encounter (statuses as of 10/29/2021) [facility] of Past illness Narrative* Problem [...] disorder, not elsewhere classified 01/06/2016 Overview: [facility] Threatened , antepartum 06/30/2010 04/07/2011 Supervision of normal first 06/30/2010 04/07/2011 documented as of this encounter (statuses as of 11/10/2021) [facility] of Past illness Narrative* Problem [...] disorder, not elsewhere classified 01/06/2016 Overview: [facility] Threatened , antepartum 06/30/2010 04/07/2011 Supervision of normal first 06/30/2010 04/07/2011 documented as of this encounter (statuses as of 11/22/2021) [facility] of Past illness Narrative* Problem [...] disorder, not elsewhere classified 01/06/2016 Overview: [facility] Threatened , antepartum 06/30/2010 04/07/2011 Supervision of normal first 06/30/2010 04/07/2011 documented as of this encounter (statuses as of 11/26/2021) [facility] of Past illness Narrative* Problem [...] disorder, not elsewhere classified 01/06/2016 Overview: [facility] Threatened , antepartum 06/30/2010 04/07/2011 Supervision of normal first 06/30/2010 04/07/2011 documented as of this encounter (statuses as of 12/09/2021) [facility] of Past illness Narrative* Problem [...] disorder, not elsewhere classified 01/06/2016 Overview: [facility] Threatened , antepartum 06/30/2010 04/07/2011 Supervision of normal first 06/30/2010 04/07/2011 documented as of this encounter (statuses as of 12/20/2021) [facility] of [facility] illness Narrative* Problem [...] disorder, not elsewhere classified 01/06/2016 Overview: [facility] Threatened , antepartum 06/30/2010 04/07/2011 Supervision of normal first 06/30/2010 04/07/2011 documented as of this encounter (statuses as of 12/28/2021) [facility] of [facility] illness Narrative* Problem [...] disorder, not elsewhere classified 01/06/2016 Overview: [facility] Threatened , antepartum 06/30/2010 04/07/2011 Supervision of normal first 06/30/2010 04/07/2011 documented as of this encounter (statuses as of 12/31/2021) [facility] Narrative* Problem [...] disorder, not elsewhere classified 01/06/2016 Overview: [facility] Threatened , antepartum 06/30/2010 04/07/2011 Supervision of normal first 06/30/2010 04/07/2011 documented as of this encounter (statuses as of 01/13/2022) [facility] Narrative* Problem [...] disorder, not elsewhere classified 01/06/2016 Overview: [facility] Threatened , antepartum 06/30/2010 04/07/2011 Supervision of normal first 06/30/2010 04/07/2011 documented as of this encounter (statuses as of 01/14/2022) [facility] Narrative* Problem [...] disorder, not elsewhere classified 01/06/2016 Overview: [facility] Threatened , antepartum 06/30/2010 04/07/2011 Supervision of normal first 06/30/2010 04/07/2011 documented as of this encounter (statuses as of 02/08/2022) [facility] Narrative* Problem [...] disorder, not elsewhere classified 01/06/2016 Overview: [facility] Threatened , antepartum 06/30/2010 04/07/2011 Supervision of normal first 06/30/2010 04/07/2011 documented as of this encounter (statuses as of 02/09/2022) [facility] Narrative* Problem [...] disorder, not elsewhere classified 01/06/2016 Overview: [facility] Threatened , antepartum 06/30/2010 04/07/2011 Supervision of normal first 06/30/2010 04/07/2011 documented as of this encounter (statuses as of 02/10/2022) [facility] Narrative* Problem [...] disorder, not elsewhere classified 01/06/2016 Overview: [facility] Threatened , antepartum 06/30/2010 04/07/2011 Supervision of normal first 06/30/2010 04/07/2011 documented as of this encounter (statuses as of 02/15/2022) [facility] Narrative* Problem [...] disorder, not elsewhere classified 01/06/2016 Overview: [facility] Threatened , antepartum 06/30/2010 04/07/2011 Supervision of normal first 06/30/2010 04/07/2011 documented as of this encounter (statuses as of 02/19/2022) [facility] Narrative* Problem [...] disorder, not elsewhere classified 01/06/2016 Overview: [facility] Threatened , antepartum 06/30/2010 04/07/2011 Supervision of normal first 06/30/2010 04/07/2011 documented as of this encounter (statuses as of 02/24/2022) [facility] Narrative* Problem [...] disorder, not elsewhere classified 01/06/2016 Overview: [facility] Threatened , antepartum 06/30/2010 04/07/2011 Supervision of normal first 06/30/2010 04/07/2011 documented as of this encounter (statuses as of 02/28/2022) [facility] Narrative* Problem [...] disorder, not elsewhere classified 01/06/2016 Overview: [facility] Threatened , antepartum 06/30/2010 04/07/2011 Supervision of normal first 06/30/2010 04/07/2011 documented as of this encounter (statuses as of 02/28/2022) [facility] Narrative* Problem [...] disorder, not elsewhere classified 01/06/2016 Overview: [facility] Threatened , antepartum 06/30/2010 04/07/2011 Supervision of normal first 06/30/2010 04/07/2011 documented as of this encounter (statuses as of 03/15/2022) [facility] Narrative* Problem [...] disorder, not elsewhere classified 01/06/2016 Overview: [facility] Threatened , antepartum 06/30/2010 04/07/2011 Supervision of normal first 06/30/2010 04/07/2011 documented as of this encounter (statuses as of 05/10/2022) [facility] Narrative* Problem [...] disorder, not elsewhere classified 01/06/2016 Overview: [facility] Threatened , antepartum 06/30/2010 04/07/2011 Supervision of normal first 06/30/2010 04/07/2011 documented as of this encounter (statuses as of 06/08/2022) [facility] Narrative* Problem [...] disorder, not elsewhere classified 01/06/2016 Overview: [facility] Threatened , antepartum 06/30/2010 04/07/2011 Supervision of normal first 06/30/2010 04/07/2011 documented as of this encounter (statuses as of 06/16/2022) [facility] Narrative* Problem [...] disorder, not elsewhere classified 01/06/2016 Overview: [facility] Threatened , antepartum 06/30/2010 04/07/2011 Supervision of normal first 06/30/2010 04/07/2011 documented as of this encounter (statuses as of 07/06/2022) [facility] Narrative* Problem [...] disorder, not elsewhere classified 01/06/2016 Overview: [facility] Threatened , antepartum 06/30/2010 04/07/2011 Supervision of normal first 06/30/2010 04/07/2011 documented as of this encounter (statuses as of 07/19/2022) [facility] Narrative* Problem [...] disorder, not elsewhere classified 01/06/2016 Overview: [facility] Threatened , antepartum 06/30/2010 04/07/2011 Supervision of normal first 06/30/2010 04/07/2011 documented as of this encounter (statuses as of 07/20/2022) [facility] Narrative* Problem [...] disorder, not elsewhere classified 01/06/2016 Overview: [facility] Threatened , antepartum 06/30/2010 04/07/2011 Supervision of normal first 06/30/2010 04/07/2011 documented as of this encounter (statuses as of 07/21/2022) [facility] Narrative* Problem [...] disorder, not elsewhere classified 01/06/2016 Overview: [facility] Threatened , antepartum 06/30/2010 04/07/2011 Supervision of normal first 06/30/2010 04/07/2011 documented as of this encounter (statuses as of 07/25/2022) [facility] Narrative* Problem [...] disorder, not elsewhere classified 01/06/2016 Overview: [facility] Threatened , antepartum 06/30/2010 04/07/2011 Supervision of normal first 06/30/2010 04/07/2011 documented as of this encounter (statuses as of 08/03/2022) [facility] Narrative* Problem [...] disorder, not elsewhere classified 01/06/2016 Overview: [facility] Threatened , antepartum 06/30/2010 04/07/2011 Supervision of normal first 06/30/2010 04/07/2011 documented as of this encounter (statuses as of 08/17/2022) [facility] Narrative* Problem [...] disorder, not elsewhere classified 01/06/2016 Overview: [facility] Threatened , antepartum 06/30/2010 04/07/2011 Supervision of normal first 06/30/2010 04/07/2011 documented as of this encounter (statuses as of 08/31/2022) [facility] Narrative* Problem [...] disorder, not elsewhere classified 01/06/2016 Overview: [facility] Threatened , antepartum 06/30/2010 04/07/2011 Supervision of normal first 06/30/2010 04/07/2011 documented as of this encounter (statuses as of 09/03/2022) [facility]02-28-2022 History of Past illness Narrative* Problem [...] disorder, not elsewhere classified 01/06/2016 Overview: [facility] Threatened , antepartum 06/30/2010 04/07/2011 Supervision of normal first 06/30/2010 04/07/2011 documented as of this encounter (statuses as of 09/07/2022) [facility]2022 History of Past illness Narrative* Problem [...] disorder, not elsewhere classified 01/06/2016 Overview: [facility] Threatened , antepartum 06/30/2010 04/07/2011 Supervision of normal first 06/30/2010 04/07/2011 documented as of this encounter (statuses as of 10/05/2022) [facility] History of Past illness Narrative* Problem [...] disorder, not elsewhere classified 01/06/2016 Overview: [facility] Threatened , antepartum 06/30/2010 04/07/2011 Supervision of normal first 06/30/2010 04/07/2011 documented as of this encounter (statuses as of 10/08/2022) [facility] History of Past illness Narrative* Problem [...] disorder, not elsewhere classified 01/06/2016 Overview: [facility] Threatened , antepartum 06/30/2010 04/07/2011 Supervision of normal first 06/30/2010 04/07/2011 documented as of this encounter (statuses as of 11/02/2022) [facility] History of Past illness Narrative* Problem [...] disorder, not elsewhere classified 01/06/2016 Overview: [facility] Threatened , antepartum 06/30/2010 04/07/2011 Supervision of normal first 06/30/2010 04/07/2011 documented as of this encounter (statuses as of 11/02/2022) [facility] History of Past illness Narrative* Problem [...] disorder, not elsewhere classified 01/06/2016 Overview: [facility] Threatened , antepartum 06/30/2010 04/07/2011 Supervision of normal first 06/30/2010 04/07/2011 documented as of this encounter (statuses as of 11/15/2022) [facility] History of Past illness Narrative* Problem [...] disorder, not elsewhere classified 01/06/2016 Overview: [facility] Threatened , antepartum 06/30/2010 04/07/2011 Supervision of normal first 06/30/2010 04/07/2011 documented as of this encounter (statuses as of 11/16/2022) [facility] History of Past illness Narrative* Problem [...] disorder, not elsewhere classified 01/06/2016 Overview: [facility] Threatened , antepartum 06/30/2010 04/07/2011 Supervision of normal first 06/30/2010 04/07/2011 documented as of this encounter (statuses as of 11/19/2022) [facility] History of Past illness Narrative* Problem [...] disorder, not elsewhere classified 01/06/2016 Overview: [facility] Threatened , antepartum 06/30/2010 04/07/2011 Supervision of normal first 06/30/2010 04/07/2011 documented as of this encounter (statuses as of 11/19/2022) [facility] History of Past illness Narrative* Problem [...] elsewhere classified 11/28/19 12 01/06/2016 Overview: [facility] Threatened , antepartum 06/30/2010 04/07/2011 Supervision of normal first 06/30/2010 04/07/2011 documented as of this encounter (statuses as of 12/14/2022) [facility] History of Past illness Narrative* Problem [...] elsewhere classified 11/28/19 12 01/06/2016 Overview: [facility] Threatened , antepartum 06/30/2010 04/07/2011 Supervision of normal first 06/30/2010 04/07/2011 documented as of this encounter (statuses as of 12/29/2022) [facility] History of Past illness Narrative* Problem [...] elsewhere classified 11/28/19 12 01/06/2016 Overview: [facility] Threatened , antepartum 06/30/2010 04/07/2011 Supervision of normal first 06/30/2010 04/07/2011 documented as of this encounter (statuses as of 01/16/2023) [facility] History of Past illness Narrative* Problem [...] elsewhere classified 11/28/19 12 01/06/2016 Overview: [facility] Threatened , antepartum 06/30/2010 04/07/2011 Supervision of normal first 06/30/2010 04/07/2011 documented as of this encounter (statuses as of 01/19/2023) [facility] History of Past illness Narrative* Problem [...] disorder, not elsewhere classified 11/28/1901/06/2016 Overview: [facility] Threatened , antepartum 06/30/2010 04/07/2011 Supervision of normal first 06/30/2010 04/07/2011 documented as of this encounter (statuses as of 02/20/2023) [facility] History of Past illness Narrative* Problem [...] disorder, not elsewhere classified 11/28/1901/06/2016 Overview: [facility] Threatened , antepartum 06/30/2010 04/07/2011 Supervision of normal first 06/30/2010 04/07/2011 documented as of this encounter (statuses as of 03/01/2023) [facility] History of Past illness Narrative* Problem Noted Date Diagnosed Date Resolved Date Type 2 diabetes mellitus wit h hyperglycemia, with long-term current use of insulin 07/26/2021 Last Assessment & Plan: On glimepiride and 33 lantus, 18U aspart w/ meals and SSI prior to admission. [facility] 10.5 07/2021 Assessment: BS 300's, on steroids PLAN: start insulin infusion Migraine without aura and wi thout status migrainosus, not intractable 10/18/2016 02/28/2018 History of kidney stones 01/04/201610/2018 Abnormal sensation of left u pper and lower extremity 08/07/2013 01/06/2016 Depressive disorder, not elsewhere classified 11/28/19 12 01/06/2016 Overview: [facility] Threatened , antepartum 06/30/2010 04/07/2011 Supervision of normal first 06/30/2010 04/07/2011 documented as of this encounter (statuses as of 03/08/2023) [facility] History of Past illness Narrative* Problem [...] disorder, not elsewhere classified 11/28/1901/06/2016 Overview: [facility] Threatened , antepartum 06/30/2010 04/07/2011 Supervision of normal first 06/30/2010 04/07/2011 documented as of this encounter (statuses as of 04/05/2023) [facility] History of Past illness Narrative* Problem [...] disorder, not elsewhere classified 11/28/1901/06/2016 Overview: [facility] Threatened , antepartum 06/30/2010 04/07/2011 Supervision of normal first 06/30/2010 04/07/2011 documented as of this encounter (statuses as of 04/08/2023) [facility] History of Past illness Narrative* Problem [...] disorder, not elsewhere classified 11/28/1901/06/2016 Overview: [facility] Threatened , antepartum 06/30/2010 04/07/2011 Supervision of normal first 06/30/2010 04/07/2011 documented as of this encounter (statuses as of 04/13/2023) [facility] History of Past illness Narrative* Problem [...] disorder, not elsewhere classified 11/28/1901/06/2016 Overview: [facility] Threatened , antepartum 06/30/2010 04/07/2011 Supervision of normal first 06/30/2010 04/07/2011 documented as of this encounter (statuses as of 04/13/2023) [facility] History of Past illness Narrative* Problem [...] disorder, not elsewhere classified 11/28/1901/06/2016 Overview: [facility] Threatened , antepartum 06/30/2010 04/07/2011 Supervision of normal first 06/30/2010 04/07/2011 documented as of this encounter (statuses as of 04/25/2023) [facility] History of Past illness Narrative* Problem [...] disorder, not elsewhere classified 11/28/1901/06/2016 Overview: [facility] Threatened , antepartum 06/30/2010 04/07/2011 Supervision of normal first 06/30/2010 04/07/2011 documented as of this encounter (statuses as of 05/02/2023) [facility] History of Past illness Narrative* Problem [...] disorder, not elsewhere classified 11/28/1901/06/2016 Overview: [facility] Threatened , antepartum 06/30/2010 04/07/2011 Supervision of normal first 06/30/2010 04/07/2011 documented as of this encounter (statuses as of 05/03/2023) [facility] History of Past illness Narrative* Problem [...] disorder, not elsewhere classified 11/28/1901/06/2016 Overview: [facility] Threatened , antepartum 06/30/2010 04/07/2011 Supervision of normal first 06/30/2010 04/07/2011 documented as of this encounter (statuses as of 05/03/2023) [facility] History of Past illness Narrative* Problem [...] disorder, not elsewhere classified 11/28/1901/06/2016 Overview: [facility] Threatened , antepartum 06/30/2010 04/07/2011 Supervision of normal first 06/30/2010 04/07/2011 documented as of this encounter (statuses as of 05/08/2023) [facility] History of Past illness Narrative* Problem [...] disorder, not elsewhere classified 11/28/1901/06/2016 Overview: [facility] Threatened , antepartum 06/30/2010 04/07/2011 Supervision of normal first 06/30/2010 04/07/2011 documented as of this encounter (statuses as of 05/09/2023) [facility] History of Past illness Narrative* Problem [...] disorder, not elsewhere classified 11/28/1901/06/2016 Overview: [facility] Threatened , antepartum 06/30/2010 04/07/2011 Supervision of normal first 06/30/2010 04/07/2011 documented as of this encounter (statuses as of 07/05/2023) [facility] History of Past illness Narrative* Problem [...] disorder, not elsewhere classified 11/28/1901/06/2016 Overview: [facility] Threatened , antepartum 06/30/2010 04/07/2011 Supervision of normal first 06/30/2010 04/07/2011 documented as of this encounter (statuses as of 07/18/2023) [facility] History of Past illness Narrative* Problem [...] disorder, not elsewhere classified 11/28/1901/06/2016 Overview: [facility] Threatened , antepartum 06/30/2010 04/07/2011 Supervision of normal first 06/30/2010 04/07/2011 documented as of this encounter (statuses as of 07/26/2023) [facility] History of Past illness Narrative* Problem [...] disorder, not elsewhere classified 11/28/1901/06/2016 Overview: [facility] Threatened , antepartum 06/30/2010 04/07/2011 Supervision of normal first 06/30/2010 04/07/2011 documented as of this encounter (statuses as of 08/14/2023) [facility] History of Past illness Narrative* Problem [...] of this encounter (statuses as of 08/17/2023) [facility] History of Past illness Narrative* Problem [...] disorder, not elsewhere classified 11/28/1901/06/2016 Overview: [facility] Threatened , antepartum 06/30/2010 04/07/2011 Supervision of normal first 06/30/2010 04/07/2011 documented as of this encounter (statuses as of 08/19/2023) [facility]12-[facility] Evaluation + Plan note Diagnostic Tests Pending * Urine Culture 04/28/21 [facility] 05-23-2017 History of Past illness Narrative* Problem Noted Date Resolved Date Migraine without aura and wi thout status migrainosus, not intractable 10/18/2016 02/28/2018 History of kidney stones 01/04/2016 019 Abnormal sensation of left upper and lower extre mity 08/07/2013 01/06/2016 Depressive disorder, not elsewhere classified 01/06/2016 Overview: [facility] Threatened , antepartum 06/30/2010 04/07/2011 Supervision of normal first 06/30/2010 04/07/2011 documented as of this encounter (statuses as of 08/24/2021) [facility] History of Past illness Narrative* Problem Noted Date Resolved Date Migraine without aura and wi thout status migrainosus, not intractable 10/18/2016 02/28/2018 History of kidney stones 01/04/2016 019 Abnormal sensation of left upper and lower extre mity 08/07/2013 01/06/2016 Depressive disorder, not elsewhere classified 01/06/2016 Overview: [facility] Threatened , antepartum 06/30/2010 04/07/2011 Supervision of normal first 06/30/2010 04/07/2011 documented as of this encounter (statuses as of 08/25/2021) [facility] History of Past illness Narrative* Problem Noted Date Resolved Date Migraine without aura and wi thout status migrainosus, not intractable 10/18/2016 02/28/2018 History of kidney stones 01/04/2016 019 Abnormal sensation of left upper and lower extre mity 08/07/2013 01/06/2016 Depressive disorder, not elsewhere classified 01/06/2016 Overview: [facility] Threatened , antepartum 06/30/2010 04/07/2011 Supervision of normal first 06/30/2010 04/07/2011 documented as of this encounter (statuses as of 08/27/2021) [facility] History of Past illness Narrative* Problem Noted Date Resolved Date Migraine without aura and wi thout status migrainosus, not intractable 10/18/2016 02/28/2018 History of kidney stones 01/04/2016 019 Abnormal sensation of left upper and lower extre mity 08/07/2013 01/06/2016 Depressive disorder, not elsewhere classified 01/06/2016 Overview: [facility] Threatened , antepartum 06/30/2010 04/07/2011 Supervision of normal first 06/30/2010 04/07/2011 documented as of this encounter (statuses as of 08/21/2021) [facility] History of Past illness Narrative* Problem Noted Date Resolved Date Migraine without aura and wi thout status migrainosus, not intractable 10/18/2016 02/28/2018 History of kidney stones 01/04/2016 019 Abnormal sensation of left upper and lower extre mity 08/07/2013 01/06/2016 Depressive disorder, not elsewhere classified 01/06/2016 Overview: [facility] Threatened , antepartum 06/30/2010 04/07/2011 Supervision of normal first 06/30/2010 04/07/2011 documented as of this encounter (statuses as of 08/30/2021) [facility] History of Past illness Narrative* Problem Noted Date Resolved Date Migraine without aura and wi thout status migrainosus, not intractable 10/18/2016 02/28/2018 History of kidney stones 01/04/2016 019 Abnormal sensation of left upper and lower extre mity 08/07/2013 01/06/2016 Depressive disorder, not elsewhere classified 01/06/2016 Overview: [facility] Threatened , antepartum 06/30/2010 04/07/2011 Supervision of normal first 06/30/2010 04/07/2011 documented as of this encounter (statuses as of 08/31/2021) [facility] History of Past illness Narrative* Problem Noted Date Resolved Date Migraine without aura and wi thout status migrainosus, not intractable 10/18/2016 02/28/2018 History of kidney stones 01/04/2016 019 Abnormal sensation of left upper and lower extre mity 08/07/2013 01/06/2016 Depressive disorder, not elsewhere classified 01/06/2016 Overview: [facility] Threatened , antepartum 06/30/2010 04/07/2011 Supervision of normal first 06/30/2010 04/07/2011 documented as of this encounter (statuses as of 09/03/2021) [facility] History of Past illness Narrative* Problem Noted Date Resolved Date Migraine without aura and wi thout status migrainosus, not intractable 10/18/2016 02/28/2018 History of kidney stones 01/04/2016 019 Abnormal sensation of left upper and lower extre mity 08/07/2013 01/06/2016 Depressive disorder, not elsewhere classified 01/06/2016 Overview: [facility] Threatened , antepartum 06/30/2010 04/07/2011 Supervision of normal first 06/30/2010 04/07/2011 documented as of this encounter (statuses as of 09/10/2021) [facility] History of Past illness Narrative* Problem Noted Date Resolved Date Migraine without aura and wi thout status migrainosus, not intractable 10/18/2016 02/28/2018 History of kidney stones 01/04/2016 019 Abnormal sensation of left upper and lower extre mity 08/07/2013 01/06/2016 Depressive disorder, not elsewhere classified 01/06/2016 Overview: [facility] Threatened , antepartum 06/30/2010 04/07/2011 Supervision of normal first 06/30/2010 04/07/2011 documented as of this encounter (statuses as of 09/10/2021) [facility] History of Past illness Narrative* Problem Noted Date Resolved Date Migraine without aura and wi thout status migrainosus, not intractable 10/18/2016 02/28/2018 History of kidney stones 01/04/20162 019 Abnormal sensation of left upper and lower extre mity 08/07/2013 01/06/2016 Depressive disorder, not elsewhere classified 01/06/2016 Overview: [facility] Threatened , antepartum 06/30/2010 04/07/2011 Supervision of normal first 06/30/2010 04/07/2011 documented as of this encounter (statuses as of 09/22/2021) [facility] History of Past illness Narrative* Problem Noted Date Resolved Date Migraine without aura and wi thout status migrainosus, not intractable 10/18/2016 02/28/2018 History of kidney stones 01/04/2016 019 Abnormal sensation of left upper and lower extre mity 08/07/2013 01/06/2016 Depressive disorder, not elsewhere classified 01/06/2016 Overview: [facility] Threatened , antepartum 06/30/2010 04/07/2011 Supervision of normal first 06/30/2010 04/07/2011 documented as of this encounter (statuses as of 09/22/2021) [facility] History of Past illness Narrative* Problem Noted Date Resolved Date Migraine without aura and wi thout status migrainosus, not intractable 10/18/2016 02/28/2018 History of kidney stones 01/04/2016 019 Abnormal sensation of left upper and lower extre mity 08/07/2013 01/06/2016 Depressive disorder, not elsewhere classified 01/06/2016 Overview: [facility] Threatened , antepartum 06/30/2010 04/07/2011 Supervision of normal first 06/30/2010 04/07/2011 documented as of this encounter (statuses as of 09/22/2021) [facility] History of Past illness Narrative* Problem Noted Date Resolved Date Migraine without aura and wi thout status migrainosus, not intractable 10/18/2016 02/28/2018 History of kidney stones 01/04/2016 0206/2 019 Abnormal sensation of left upper and lower extre mity 08/07/2013 01/06/2016 Depressive disorder, not elsewhere classified 01/06/2016 Overview: [facility] , antepartum 06/30/2010 04/07/2011 Supervision of normal first 06/30/2010 04/07/2011 documented as of this encounter (statuses as of 09/23/2021) [facility] History of Past illness Narrative* Problem Noted Date Resolved Date Migraine without aura and wi thout status migrainosus, not intractable 10/18/2016 02/28/2018 History of kidney stones 01/04/2016 019 Abnormal sensation of left upper and lower extre mity 08/07/2013 01/06/2016 Depressive disorder, not elsewhere classified 01/06/2016 Overview: [facility] Threatened , antepartum 06/30/2010 04/07/2011 Supervision of normal first 06/30/2010 04/07/2011 documented as of this encounter (statuses as of 10/01/2021) [facility] August 16, 2022 1:31pm Note Date/Time August 16, 2022 1:3 1pm [facility] Medical Records Department [address] [place] [id number] Consultation 08/16/22 1325 MR#: [id number] Acct: [id number] Name: DEBBY BAILON Rep #:[id number] : 1980 41 From: Xavier Wing DPM PCP: Dr. Will Brannon MD Status:REG ER [...] and has noticed issues since that time. [facility] Medical History Anxiety and depression Arthritis Manley's [...] Clarity Cloudy, Urine pH 6.0, Ur Specific [place] 1.015, Urine Protein 100 H, Urine Glucose [...] 77.0 H, Lymph % (Auto) 14.1 L, [place] % (Auto) 6.5, Eos % (Auto) 0.4, [...] Signed: Stephan Sood MD at 13:18 EDT , 08/16/22 1331 <Electronically signed by Xavier Freedom DPM> Cosigner Signature (if applicable): CC: Dr. Will Brannon MD~ Signed [facility] Work Phone: Discharge summary Author Alexander Hooks [facility] Note Date/Time March 09, 2025 4 :21am [facility] Medical Records Department [address] [place] [address] Emergency Department Summary 03/09/25 MR#: [id number] Acct: [id number] Name: DEBBY BAILON Rep #:[id number] : 1980 44 From: Alexander Hooks DO PCP: Dr. Will Brannon MD Status:DEP ER Location: ED HPI History of Present Illness Chief Complaint: Cook C/O Informant: patient Narrative Narrative: Patient is a 44-year-old female with past medical history of spina bifida and chronic indwelling suprapubic catheter. She was seen earlier this evening and at that time had laboratory studies and a urine sample and a CT scan of the abdomen and pelvis. Workup revealed no clinically significant findings. She had her suprapubic catheter replaced as it was not draining. Patient states that there was no inadvertent tugging or manipulation of the suprapubic catheteronce she was discharged however she has been having increasing pain in the lowerabdomen/pelvic region and she states there has been no drainage from her catheter. The patient states that the last time she had symptoms like this it was because the catheter was threaded too far and was no longer in the bladder. 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 resistance Leukocytosis Cellulitis of left leg Cellulitis of foot, left Type 2 diabetes mellitus with foot ulcer [...] mg PO BID Beta Pan 08/10/24 History ondansetron 4 mg disintegrating 4 mg PO Q8H PRN PRN Na usea #20 tabs 01/12/25 03/16/25 Rx tablet promethazine 25 mg tablet 25 mg PO TID PRN nausea and 07/31/24 08/01/24 Rx vomiting #20 tabs divalproex 500 mg tablet,delayed 500 mg PO QHS Migrain e Headaches 08/11/24 08/10/24 History release omeprazole 20 mg capsule,delayed 20 mg PO DAILY PPI 08/10/24 History release cholecalciferol (vitamin D3) 125 125 mcg PO DAILY #0 c aps 08/16/24 Unknown Rx mcg (5,000 unit) capsule enoxaparin 40 mg/0.4 mL 40 mg (0.4 mL) subcut BID #0 mL 08/16/24 Unknown Rx subcutaneous syringe insulin glargine-yfgn 100 unit/mL 30 unit (0.3 mL) sub cut QHS #1 mL 08/16/24 Unknown Rx (3 mL) subcutaneous pen insulin lispro 100 unit/mL 12 unit (0.12 mL) subcut TI DCM #0 08/16/24 Unknown Rx subcutaneous pen (Humalog KwikPen mL (U-100) Insulin) insulin lispro 100 unit/mL See Protocol subcut TIDCM # 0 mL 08/16/24 Unknown Rx subcutaneous pen (Humalog KwikPen (U-100) Insulin) linezolid 600 mg tablet 600 mg PO BID #0 tabs Unknown Rx metronidazole 500 mg tablet 500 mg PO TID #22 tabs Unknown Rx oxycodone 5 mg tablet 5 mg PO Q4H PRN PRN Pain Sco re 08/16/24 Unknown Rx 1-10 3 days #10 tabs pregabalin 75 mg capsule 75 mg PO BID #6 caps 5 Unknown Rx nitrofurantoin 100 mg PO Q12 #14 CAPSULES 0 11/20/24 Unknown Rx monohydrate/macrocrystals 100 mg capsule levofloxacin 500 mg tablet 500 mg PO DAILY 5 days #5 t abs 03/09/25 Unknown Rx Allergy/AdvReac Type Severity Reaction Status Date / Time Cephalosporins Allergy Severe Anaphylaxis Verified 03/09/25 02:51 piperacillin (From Zosyn) Allergy Intermediate Hives Verified 03/09/25 02:51 ceftriaxone (From Rocephin) Allergy Anaphylaxis Verified 03/09/25 02:51 mushroom Allergy Anaphylaxis Verified 03/09/25 02:51 peanut Allergy Anaphylaxis Verified 03/09/25 02:51 tazobactam (From Zosyn) Allergy NEEDS Verified 03/09/25 02:51 FOLLOW-UP fentanyl AdvReac Low blood Verified 03/09/25 02:51 pressure gabapentin AdvReac Other Verified 03/09/25 02:51 Gadolinium-MRI Contrast AdvReac Vomiting Verified 03/09/25 02:51 Medium Latex, Natural Rubber AdvReac Rash Verified 03/09/25 02:51 vancomycin AdvReac Rash Verified 03/09/25 02:51 Family History Mother CVA (cerebral vascular accident) [...] History of dilation and curettage Social History (Updated 03/08/25 @ 20:01 by Denise Busby) household members: significant other housing: house Smoking Status: Never smoker alcohol intake: current substance use type: does not use ROS ROS ED Constitutional Constitutional ED: Denies chills or fever(s) ENT ENT ED: Denies sore throat Cardiovascular Cardiovascular: Denies chest pain Respiratory/Chest Respiratory/Chest: Denies cough or dyspnea Gastrointestinal Gastrointestinal: Reports abdominal pain; Denies nausea or vomiting Genitourinary Genitourinary ED: Reports hematuria Musculoskeletal Musculoskeletal: Denies back pain Integumentary Denies rash Neurologic Neurologic: Denies headache(s) EXAM Physical Exam Const Vital Signs: 03/09/25 02:51 03/09/25 04:16 Temperature 97.9 F 98.2 F Temperature Source Oral Pulse Rate 84 76 Respiratory Rate 18 18 Blood Pressure 130/76 H 144/77 H Blood Pressure Mean 94 99 Pulse Ox 98 99 Oxygen Delivery Method Room Air Positive well nourished, well developed and obese General Appearance ED: well developed; Negative for pallor Nutritional Appearance: obese HEENT HEENT Narrative: Normocephalic atraumatic Eyes PERRL and EOMs intact bilaterally General Eye ED: Negative for scleral icterus Neck supple Resp normal respiratory effort and clear to auscultation bilaterally Cardio regular rate and regular rhythm GI non-distended and no masses GI Narrative: Abdomen is soft and nondistended with normal active bowel sounds. There is a colostomy in place draining soft brown stool. Patient reports pain with palpation in the lower midline abdomen/suprapubic region but there is no organomegaly to suggest urinary bladder distention. There is a suprapubic catheter in place however there is no drainage into the catheter and at the insertion site there is no surrounding redness warmth or discharge to suggest infection but it does appear to be leakage of urine around the insertion site. Auscultation: normoactive bowel sounds Palpation: soft Extremity normal to inspection Neuro oriented x3 and CN's II-XII intact bilaterally Sensorium / Orientation: alert Psych mental status grossly normal Skin General Skin Exam: Negative for jaundice or pallor MDM MDM MDM Narrative Medical decision making narrative: Patient arrived to the ER with stable vitals. She reported increasing pain in the lower abdomen/pelvic region and no drainage from the suprapubic catheter. Her previous ER visit from a few hours ago was reviewed. She had stable H&H normal kidney function and CT scan documented the catheter to be in the proper position within the bladder. The patient however inform me that the CT scan wasdone with her prior catheter in place not the new/replaced one. As there is concern that there may be sediment blocking the catheter we did attempt to manually irrigate the catheter. Upon doing this the irrigation fluid came out through the vagina indicating that the catheter was most likely thread too far. Therefore a KUB of Gastrografin was performed and this showed no sign of extravasation going against bladder rupture but I did confirm that the tip of the suprapubic catheter was not in the bladder but in the urethra which would also explain the patient's lower abdominal/pelvic pain. Therefore the balloon was deflated and the catheter was retracted approximately 4 cm. At this time there was return of clear yellow urine through the catheter tubing and the patient reported improvement of her discomfort. We flushed the catheter once again and it flushed and kandace easily without any extravasation through the vagina indicating the catheter is in the proper position. Therefore with returnof the suprapubic catheter to a normal position functioning within the bladder she is otherwise safe for discharge History & Record Review Discussion w/independent historian: Patient Additional record(s) reviewed:: Prior ED visit Radiography Diagnostic Testing: Clinical Impression(s) from Imaging Studies KUB X-Ray 03/09/25 03:58 IMPRESSION: Suprapubic catheter is noted with its tip at the level of the urethra. It needs to be retrieved 4 cm. Contrast was injected through the catheter outlining of the bladder and the urethra without contrast leakage. Reading Location: [place] [id number] KUB as interpreted by the emergency medicine physician reveals no extravasation going against bladder perforation/rupture but it does document the tip of the suprapubic catheter is within the urethra Discharge Plan Triage Chief Complaint: Cook C/O ED Provider: Alexander Hooks Dx/Rx/DC Orders Clinical Impression: Suprapubic catheter dysfunction, Diabetes mellitus type 2, insulin dependent, Spina bifida Instructions: Suprapubic Catheter Dc Prescriptions: No Action atorvastatin 80 mg tablet [...] mg capsule,delayed release(DR/EC) 20 mg PO DAILY cholecalciferol (vitamin D3) 125 mcg (5,000 unit) [...] 75 mg PO BID Qty: 6 0RF levofloxacin 500 mg tablet 500 mg PO DAILY 5 Days Qty: 5 0RF propranolol 20 mg tablet 20 mg PO BID loratadine [Allergy Relief (loratadine)] 10 mg tablet 10 mg PO DAILY nitrofurantoin monohyd/m-cryst 100 mg capsule 100 mg PO Q12 Qty: 14 0RF Primary Care Provider: Will Brannon Referrals: Will Brannon MD [Primary Care Provider, Family Practice] Activity Restrictions/Additional Instructions: The x-ray of your abdomen showed that your suprapubic catheter had previously been thread too far and was in the urethra which was why it was causing pain andnot draining the bladder. There are no findings of bladder perforation/rupture. At this time the catheter was retracted and is now sitting within the bladder indicating by the fact you have draining urine. Please follow-up with your urologist and/or family doctor for repeat evaluation and return to the ER shouldyou have any further concerns Print Language: Kinyarwanda Disposition Disposition: Home, Self Care Discharge Date/Time: 03/09/25 04:21 What to do if you have Problems For any increased pain, shortness of breath, bleeding, nausea or vomiting, chestpain, or any unexpected problems, contact your Primary Care Provider. Call [facility] ([phone]) or report to the closest Emergency Room. Call 911 if necessary. 03/09/25 0527 <Electronically signed by Alexander Hooks DO> Cosigner Signature (if applicable): CC: Dr. Will Brannon MD ~ Signed [facility] Work Phone: Evaluation note* Diagnosis Neurogenic bowel [facility] Diagnosis Neuropathy- Primary Mononeuritis of unspecified site Spina bifida, unspecified hydrocephalus presence, unspecified spinal region (HCC) Spinal stenosis of lumbar region without neurogenic claudication Spinal stenosis, lumbar region, without neurogenic claudication Thyroid cyst Cyst of thyroid Manley's palsy Facial weakness [facility] Diagnosis Neurogenic dysfunction of the urinary bladder- Primary Neurogenic bladder, NOS [facility] Diagnosis Manley's palsy Facial weakness Colonic dysmotility Unspecified functional disorder of intestine Constipation due to outlet dysfunction [facility] Diagnosis Spinal stenosis of lumbar region without neurogenic claudication Spinal stenosis, lumbar region, without neurogenic claudication Colonic dysmotility Unspecified functional disorder of intestine Constipation due to outlet dysfunction [facility]No assessment [facility] Work Phone: Evaluation [facility]* Diagnosis Preoperative [...] bifida, unspecified hydrocephalus presence, unspecified spinal region ([facility]) Essential hypertension Unspecified essential hypertension Mixed hyperlipidemia Paroxysmal SVT (supraventricular tachycardia) (HCC) Paroxysmal supraventricular tachycardia Neurogenic bladder Neurogenic bladder, NOS Type 2 diabetes mellitus with hyperglycemia, with long-term current use of insulin ([facility]) Colonic dysmotility Unspecified functional disorder of intestine Constipation due to outlet dysfunction [facility]* Diagnosis Attention to artificial opening of urinary tract ([facility])- Primary Attention to other artificial opening of urinary tract Colonic dysmotility Unspecified functional disorder of intestine Constipation due to outlet dysfunction [facility] Diagnosis Attention to colostomy ([facility])- Primary Attention to colostomy [facility]* Diagnosis Anaphylaxis, initial encounter- Primary [facility]* Diagnosis Onset Date Resolution Status Cellulitis acute [facility] Work Phone: Evaluation note* Diagnosis Adverse effect of cephalosporins and other beta-lactam antibiotics, initial encounter- Primary Anaphylaxis, initial encounter [facility]* Diagnosis Encounter for screening mammogram for breast cancer [facility] Diagnosis Suprapubic catheter (HCC)- Primary Other cystostomy status [facility] Diagnosis Neurogenic dysfunction of the urinary bladder- Primary Neurogenic bladder, NOS [facility] Diagnosis Encounter for screening mammogram for breast cancer [facility] Diagnosis Neurogenic dysfunction of the urinary bladder- Primary Neurogenic bladder, NOS [facility]* Diagnosis 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)- Primary 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) Essential hypertension Unspecified essential hypertension Mixed hyperlipidemia Thyroid cyst Cyst of thyroid Dysthymic disorder Anxiety and depression Dysthymic disorder Morbid obesity with BMI of 40.0-44.9, adult (HCC) Morbid obesity Paroxysmal SVT (supraventricular tachycardia) (HCC) Paroxysmal supraventricular tachycardia Spina bifida, unspecified hydrocephalus presence, unspecified spinal region ([facility]) Neuropathy Mononeuritis of unspecified site [facility]* Diagnosis Thyroid cyst Cyst of thyroid [facility]* Diagnosis Globus sensation- Primary Gastrointestinal malfunction arising from mental factors Thyroid nodule Nontoxic uninodular goiter Pharyngeal dysphagia Dysphagia, pharyngeal phase [facility]* Diagnosis Thyroid cyst- Primary Cyst of thyroid Thyroid nodule Nontoxic uninodular goiter [facility]* Diagnosis Thyroid nodule- Primary Nontoxic uninodular goiter Pharyngeal dysphagia Dysphagia, pharyngeal phase Globus sensation Gastrointestinal malfunction arising from mental factors Tenderness of neck [facility]* Diagnosis Gastroenteritis- Primary Other and unspecified noninfectious gastroenteritis and colitis documented in this encounter [facility] note* Diagnosis Neurogenic bladder- Primary Neurogenic bladder, NOS documented in this encounter [facility] note* Diagnosis Neurogenic bladder- Primary Neurogenic bladder, NOS documented in this encounter [facility] note* Diagnosis Screening for genitourinary condition Screening for other and unspecified genitourinary condition documented in this encounter [facility] note* Diagnosis Neurogenic bladder- Primary Neurogenic bladder, NOS documented in this encounter [facility] note* Diagnosis Onset Date Resolution Status Cellulitis acute Failure of outpatient treatment acute Pyrexia acute Diabetes mellitus, type II c onic [facility] Work Phone: Evaluation note* Diagnosis Onset Date Resolution Status Cellulitis acute Cellulitis of left lower limb acute Diabetes mellitus with diabetic polyneuropathy acute Failure of outpatient treatment acute Foot osteomyelitis, left acu te Pyrexia acute Type 2 diabetes mellitus with foot ulcer acute CKD (chronic kidney disease) chronic Diabetes mellitus, type II c hronic 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 Non-pressure chronic ulcer o f other part of left foot with fat layer exposed chronic [facility] Work Phone: Evaluation note* Diagnosis Neurogenic bladder- Primary Neurogenic bladder, NOS Suprapubic catheter (HCC) Other cystostomy status documented in this encounter [facility] note* Diagnosis Suprapubic catheter (HCC)- Primary Other cystostomy status Bladder stone Other calculus in bladder documented in this encounter [facility] note* Diagnosis Screening for genitourinary condition Screening for other and unspecified genitourinary condition documented in this encounter [facility] note* Diagnosis Neurogenic bladder- Primary Neurogenic bladder, NOS documented in this encounter [facility] note* Diagnosis Onset Date Resolution Status Cellulitis resolved Cellulitis of left lower limb resolved Failure of outpatient treatment resolved Foot osteomyelitis, left res olved Non-pressure chronic ulcer o f left heel and midfoot with fat layer exposed resolved Non-pressure chronic ulcer o f other part of left foot with fat layer exposed resolved Pyrexia resolved Type 2 diabetes mellitus with foot ulcer resolved [facility] Work Phone: Evaluation note* Diagnosis Non-compliance Personal history of noncompliance with medical treatment, presenting hazards to health documented in this encounter [facility] note* Diagnosis Neurogenic bladder- Primary Neurogenic bladder, NOS documented in this encounter [facility] note* Diagnosis Neurogenic bladder- Primary Neurogenic bladder, NOS Suprapubic catheter (HCC) Other cystostomy status Diabetes mellitus type 2 with ketoacidosis, uncontrolled (HCC) Type II or unspecified type diabetes mellitus with ketoacidosis, uncontrolled documented in this encounter [facility] note* Diagnosis Onset Date Resolution Status Diabetes [...] polyneuropathy acute Noncompliance with diabetes treatment acute [facility] Work Phone: Evaluation note* Diagnosis Neurogenic bladder- Primary Neurogenic bladder, NOS documented in this encounter [facility] note* Diagnosis Attention to colostomy (HCC)- Primary Attention to colostomy documented in this encounter [facility] note* Diagnosis Attention to colostomy (HCC)- Primary Attention to colostomy [facility] Onset Date Resolution Status Diabetes mellitus with diabetic polyneuropathy acute Noncompliance with diabetes treatment acute [facility] Work Phone: Evaluation note* Diagnosis Neurogenic bladder- Primary Neurogenic bladder, NOS [facility] Diagnosis Recurrent UTI- Primary Urinary tract infection, site not specified Uncontrolled type 2 diabetes mellitus with hyperglycemia (HCC) Neurogenic bladder Neurogenic bladder, NOS Suprapubic catheter (HCC) Other cystostomy status Morbid obesity with BMI of 40.0-44.9, adult (HCC) Morbid obesity [facility] Diagnosis Screening for genitourinary condition Screening for other and unspecified genitourinary condition [facility] Diagnosis Encounter for screening mammogram for breast cancer [facility] Diagnosis Thyroid cyst Cyst of thyroid [facility] Diagnosis Neurogenic bladder- Primary Neurogenic bladder, NOS [facility] Diagnosis Neurogenic bladder- Primary Neurogenic bladder, NOS [facility] Diagnosis Low TSH level- Primary Nonspecific abnormal results of thyroid function study Hyperthyroidism Thyrotoxicosis without mention of goiter or other cause, without mention of thyrotoxic crisis or storm [facility] Diagnosis Thyroid nodule- Primary Nontoxic uninodular goiter [facility]* Diagnosis Thyroid nodule- Primary Nontoxic uninodular goiter [facility]* Diagnosis Intractable chronic migraine with aura and without status migrainosus- Primary Positional headache Headache Obstructive sleep apnea Obstructive sleep apnea (adult) (pediatric) Neuropathy Mononeuritis of unspecified site Paresthesias Disturbance of skin sensation Abnormal reflex [facility] Diagnosis Neurogenic bladder- Primary Neurogenic bladder, NOS [facility]* Diagnosis Encounter for screening for malignant neoplasm of cervix- Primary Screening for malignant neoplasm of the cervix Abnormal uterine bleeding (AUB) Class 2 obesity with body mass index (BMI) of 35.0 to 35.9 in adult, unspecified obesity type, unspecified whether serious comorbidity present 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) [facility] Diagnosis Neurogenic bladder- Primary Neurogenic bladder, NOS [facility]* Diagnosis Lipomeningocele (HCC)- Primary Spina bifida without mention of hydrocephalus, unspecified region Spinal stenosis of cervical region Spinal stenosis in cervical region Radiculopathy of lumbar region Thoracic or lumbosacral neuritis or radiculitis, unspecified Chronic bilateral low back pain without sciatica [facility]* Diagnosis Cervical vertebral fusion- Primary Other unspecified back disorder Positional headache Headache Intractable chronic migraine with aura and without status migrainosus Paresthesias Disturbance of skin sensation Spina bifida, unspecified hydrocephalus presence, unspecified spinal region (HCC) Spinal stenosis of lumbar region without neurogenic claudication Spinal stenosis, lumbar region, without neurogenic claudication [facility]* Diagnosis Spinal stenosis of cervical region Spinal stenosis in cervical region Radiculopathy of lumbar region Thoracic or lumbosacral neuritis or radiculitis, unspecified Chronic bilateral low back pain without sciatica documented in this encounter [facility] note* Diagnosis Lipomeningocele (HCC) Spina bifida without mention of hydrocephalus, unspecified region [facility]* Diagnosis 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 Pre-op testing Preoperative examination, unspecified 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 [facility] Diagnosis Medicare annual wellness visit, subsequent- Primary Routine general medical examination at a health care facility Type 2 diabetes mellitus with proteinuria ([facility]) (HCC) 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) Diabetes mellitus with peripheral vascular disease (HCC) Type II or unspecified type diabetes mellitus with peripheral circulatory disorders, not stated as uncontrolled Mixed hyperlipidemia Low TSH level Nonspecific abnormal results of thyroid function study Bilateral leg edema Edema Medication management Encounter for long-term (current) use of other medications Paroxysmal SVT (supraventricular tachycardia) ([facility]) Paroxysmal supraventricular tachycardia Hyperthyroidism Thyrotoxicosis without mention of goiter or other cause, without mention of thyrotoxic crisis or storm Seasonal allergic rhinitis, unspecified trigger Colostomy in place ([facility]) Colostomy status Encounter for care or replacement of suprapubic tube ([facility]) Attention to cystostomy Primary insomnia Persistent disorder of initiating or maintaining sleep Major depressive disorder, recurrent, mild (HCC) Major depressive disorder, recurrent episode, mild Moderate recurrent major depression (HCC) Major depressive disorder, recurrent episode, moderate 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 [facility]* Diagnosis Neurogenic bladder- Primary Neurogenic bladder, NOS 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 documented in this encounter [facility] note* Diagnosis Abnormal finding of diagnostic imaging- Primary Other nonspecific (abnormal) findings on radiological and other examinations of body structure 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 documented in this encounter [facility] note* Diagnosis Neurogenic bladder- Primary Neurogenic bladder, NOS 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 documented in this encounter [facility] note* Diagnosis 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)- Primary 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) Diabetes mellitus with peripheral vascular disease (HCC) Type II or unspecified type diabetes mellitus with peripheral circulatory disorders, not stated as uncontrolled Mixed hyperlipidemia 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 documented in this encounter [facility] note* Diagnosis Pre-op evaluation- Primary Preoperative examination, [...] Note - Zainab Zendejas APRN.CNP - 10/11/2023 9:27 AM EDT Associated Problem(s): [...] Assessment & Plan Note - Zainab Zendejas APRN.DIRECTOR LABOR STANDARDS - 10/11/2023 9:16 AM EDT Associated Problem(s): Essential hypertension Assessment: Stable, complaint on rx. Follows with PCP. Last 3 Encounter BP Readings: Date: BP: 10/11/2023 118/82 10/09/2023 112/71 09/28/2023 110/78 * Assessment & Plan Note - Zainab Zendejas APRN.DIRECTOR LABOR STANDARDS - 10/11/2023 9:16 AM EDT Associated Problem(s): Mixed hyperlipidemia Assessment: Complaint on statin therapy. Encouraged lifestyle modifications. Body mass index is 40.62 kg/m . * Assessment & Plan Note - Zainab Zendejas APRN.CNP - 10/11/2023 9:16 AM EDT Associated Problem(s): Spina bifida (HCC) Assessment: dx at 32, prior spinal procedures. is caregiver. 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 difficile colitis Intestinal infection due to clostridium difficile Colostomy in place (HCC) Colostomy status Suprapubic catheter (HCC) Other cystostomy status Diabetes mellitus treated with insulin ([facility])- Primary [facility] Diagnosis Neurogenic bladder- Primary Neurogenic bladder, NOS Suprapubic catheter (HCC) Other cystostomy status Diabetes mellitus treated with insulin (HCC)- Primary [facility] Diagnosis Diabetes mellitus treated with insulin (HCC)- Primary Diabetes mellitus type 2 with ketoacidosis, uncontrolled (HCC) Type II or unspecified type diabetes mellitus with ketoacidosis, uncontrolled [facility] Diagnosis Neurogenic bladder- Primary Neurogenic bladder, NOS Suprapubic catheter (HCC) Other cystostomy status [facility] Diagnosis Neurogenic bladder- Primary [facility]genic bladder, NOS [facility] Spina bifida, unspecified hydrocephalus presence, unspecified spinal region (HCC)- Primary Intractable chronic migraine with aura and without status migrainosus Neuropathy Mononeuritis of unspecified site Paresthesias Disturbance of skin sensation Cervical vertebral fusion Other unspecified back disorder [facility] Preoperative testing- Primary Preoperative [...] bladder, NOS Amputation of left great toe ([facility]) Low back pain, unspecified back pain laterality, [...] for care or replacement of suprapubic tube ([facility]) Attention to cystostomy Type 2 diabetes mellitus with albuminuria ([facility]) ([facility]) Preoperative examination- Primary Preoperative examination, unspecified Colonic [...] stated as uncontrolled [facility] Preoperative testing- Primary Preoperative [...] bladder, NOS Amputation of left great toe ([facility]) Low back pain, unspecified back pain laterality, unspecified chronicity, unspecified whether sciatica present Dysthymic disorder History of recurrent UTIs Personal history of urinary (tract) infection Obesity, Class III, BMI 40-49.9 (morbid obesity) ([facility]) Morbid obesity Post-op pain Other acute postoperative pain Type 2 diabetes mellitus with hyperglycemia, with long-term current use of insulin ([facility]) Paroxysmal SVT (supraventricular tachycardia) ([facility]) Paroxysmal supraventricular tachycardia Neurogenic bowel Encounter for care or replacement of suprapubic tube ([facility]) Attention to cystostomy Type 2 diabetes mellitus with albuminuria ([facility]) ([facility]) Preoperative examination- Primary Preoperative examination, unspecified Colonic dysmotility Unspecified functional disorder of intestine Constipation due to outlet dysfunction Morbid obesity with BMI of 40.0-44.9, adult ([facility]) Morbid obesity Migraine without aura and without status migrainosus, not intractable Migraine without aura, without mention of intractable migraine without mention of status migrainosus History of Manley's palsy Personal history of other disorders of nervous system and sense organs Spina bifida, unspecified hydrocephalus presence, unspecified spinal region ([facility]) Essential hypertension Unspecified essential hypertension Mixed hyperlipidemia Paroxysmal SVT (supraventricular tachycardia) ([facility]) Paroxysmal supraventricular tachycardia Neurogenic bladder Neurogenic bladder, NOS Type 2 diabetes mellitus with hyperglycemia, with long-term current use of insulin ([facility]) Pre-op evaluation- Primary Preoperative examination, unspecified Spina bifida, unspecified hydrocephalus presence, unspecified spinal region ([facility]) Mixed hyperlipidemia Essential hypertension Unspecified essential hypertension Diabetes mellitus with peripheral vascular disease ([facility]) Type II or unspecified type diabetes mellitus with peripheral circulatory disorders, not stated as uncontrolled Neurogenic bowel Fatty liver Other chronic nonalcoholic liver disease Neurogenic bladder Neurogenic bladder, NOS Anxiety and depression Dysthymic disorder Bilateral leg edema Edema Colostomy in place ([facility]) Colostomy status Paroxysmal SVT (supraventricular tachycardia) ([facility]) Paroxysmal supraventricular tachycardia 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 Pre-op testing Preoperative examination, unspecified Neurogenic bladder- Primary Neurogenic bladder, NOS [facility] Diagnosis Preoperative testing- Primary Preoperative examination, unspecified Neurogenic bladder Neurogenic bladder, NOS Spina bifida, unspecified hydrocephalus presence, unspecified spinal region (HCC) Morbid obesity (HCC) Morbid obesity Mixed hyperlipidemia 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) ([facility]) Paroxysmal SVT (supraventricular tachycardia) (HCC) Paroxysmal supraventricular [...] bladder, NOS Amputation of left great toe ([facility]) Low back pain, unspecified back pain laterality, unspecified chronicity, unspecified whether sciatica present Dysthymic disorder History of recurrent UTIs Personal history of urinary (tract) infection Obesity, Class III, BMI 40-49.9 (morbid obesity) ([facility]) Morbid obesity Post-op pain Other acute postoperative pain Type 2 diabetes mellitus with hyperglycemia, with long-term current use of insulin ([facility]) Paroxysmal SVT (supraventricular tachycardia) ([facility]) Paroxysmal supraventricular tachycardia Neurogenic bowel Encounter for care or replacement of suprapubic tube ([facility]) Attention to cystostomy Type 2 diabetes mellitus with albuminuria ([facility]) ([facility]) Preoperative examination- Primary Preoperative examination, unspecified Colonic dysmotility Unspecified functional disorder of intestine Constipation due to outlet dysfunction Morbid obesity with BMI of 40.0-44.9, adult ([facility]) Morbid obesity Migraine without aura and without [...] Neurogenic bladder, NOS [facility] Diagnosis Preoperative testing- Primary Preoperative [...] for care or replacement of suprapubic tube ([facility]) Attention to cystostomy Type 2 diabetes mellitus with albuminuria ([facility]) ([facility]) Preoperative examination- Primary Preoperative examination, unspecified Colonic dysmotility Unspecified functional disorder of intestine Constipation due to outlet dysfunction Morbid obesity with BMI of 40.0-44.9, adult ([facility]) Morbid obesity Migraine without aura and without status migrainosus, not intractable Migraine without aura, without mention of intractable migraine without mention of status migrainosus History of Manley's palsy Personal history of other disorders of nervous system and sense organs Spina bifida, unspecified hydrocephalus presence, unspecified spinal region ([facility]) Essential hypertension Unspecified essential hypertension Mixed hyperlipidemia Paroxysmal SVT (supraventricular tachycardia) ([facility]) Paroxysmal supraventricular tachycardia Neurogenic bladder Neurogenic bladder, NOS Type 2 diabetes mellitus with hyperglycemia, with long-term current use of insulin ([facility]) Pre-op evaluation- Primary Preoperative examination, unspecified Spina bifida, unspecified hydrocephalus presence, unspecified spinal region ([facility]) Mixed hyperlipidemia Essential hypertension Unspecified essential hypertension Diabetes mellitus with peripheral vascular disease ([facility]) Type II or unspecified type diabetes mellitus with peripheral circulatory disorders, not stated as uncontrolled Neurogenic bowel Fatty liver Other chronic nonalcoholic liver disease Neurogenic bladder Neurogenic bladder, NOS Anxiety and depression Dysthymic disorder Bilateral leg edema Edema Colostomy in place ([facility]) Colostomy status Paroxysmal SVT (supraventricular tachycardia) ([facility]) Paroxysmal supraventricular tachycardia 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 Pre-op testing Preoperative examination, unspecified Oropharyngeal dysphagia- Primary Dysphagia, oropharyngeal phase [facility] Preoperative testing- Primary Preoperative examination, unspecified Neurogenic bladder Neurogenic bladder, NOS Spina bifida, unspecified hydrocephalus presence, unspecified spinal region ([facility]) Morbid obesity (HCC) Morbid obesity Mixed hyperlipidemia Type 2 diabetes mellitus with proteinuria ([facility]) ([facility]) Paroxysmal SVT (supraventricular tachycardia) ([facility]) Paroxysmal supraventricular tachycardia Migraine without aura and [...] bladder, NOS Amputation of left great toe ([facility]) Low back pain, unspecified back pain laterality, unspecified chronicity, unspecified whether sciatica present Dysthymic disorder History of recurrent UTIs Personal history of urinary (tract) infection Obesity, Class III, BMI 40-49.9 (morbid obesity) ([facility]) Morbid obesity Post-op pain Other acute postoperative pain Type 2 diabetes mellitus with hyperglycemia, with long-term current use of insulin ([facility]) Paroxysmal SVT (supraventricular tachycardia) ([facility]) Paroxysmal supraventricular tachycardia Neurogenic bowel Encounter for care or replacement of suprapubic tube ([facility]) Attention to cystostomy Type 2 diabetes mellitus with albuminuria ([facility]) ([facility]) Preoperative examination- Primary Preoperative examination, unspecified Colonic dysmotility Unspecified functional disorder of intestine Constipation due to outlet dysfunction Morbid obesity with BMI of 40.0-44.9, adult ([facility]) Morbid obesity Migraine without aura and without status migrainosus, not intractable Migraine without aura, without mention of intractable migraine without mention of status migrainosus History of Manley's palsy Personal history of other disorders of nervous system and sense organs Spina bifida, unspecified hydrocephalus presence, unspecified spinal region ([facility]) Essential hypertension Unspecified essential hypertension Mixed hyperlipidemia Paroxysmal SVT (supraventricular tachycardia) ([facility]) Paroxysmal supraventricular tachycardia Neurogenic bladder Neurogenic bladder, NOS Type 2 diabetes mellitus with hyperglycemia, with long-term current use of insulin ([facility]) Pre-op evaluation- Primary Preoperative examination, unspecified Spina bifida, unspecified hydrocephalus presence, unspecified spinal region ([facility]) Mixed hyperlipidemia Essential hypertension Unspecified essential hypertension Diabetes mellitus with peripheral vascular disease ([facility]) Type II or unspecified type diabetes mellitus [...] Primary Acute cystitis documented in this encounter [facility]* Diagnosis Preoperative testing- Primary Preoperative examination, unspecified Neurogenic bladder Neurogenic bladder, NOS Spina bifida, unspecified hydrocephalus presence, unspecified spinal region (HCC) Morbid obesity (HCC) Morbid obesity Mixed hyperlipidemia 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) ([facility]) Paroxysmal SVT (supraventricular tachycardia) ([facility]) Paroxysmal supraventricular tachycardia Migraine without aura and [...] bladder, NOS Amputation of left great toe ([facility]) Low back pain, unspecified back pain laterality, unspecified chronicity, unspecified whether sciatica present Dysthymic disorder History of recurrent UTIs Personal history of urinary (tract) infection Obesity, Class III, BMI 40-49.9 (morbid obesity) ([facility]) Morbid obesity Post-op pain Other acute postoperative pain Type 2 diabetes mellitus with hyperglycemia, with long-term current use of insulin ([facility]) Paroxysmal SVT (supraventricular tachycardia) ([facility]) Paroxysmal supraventricular tachycardia Neurogenic bowel Encounter for care or replacement of suprapubic tube ([facility]) Attention to cystostomy Type 2 diabetes mellitus with albuminuria ([facility]) ([facility]) Preoperative examination- Primary Preoperative examination, unspecified Colonic [...] hyperglycemia, with long-term current use of insulin ([facility]) Pre-op evaluation- Primary Preoperative examination, unspecified Spina [...] diseases of spleen [facility] Diagnosis Preoperative testing- Primary Preoperative [...] bladder, NOS Amputation of left great toe ([facility]) Low back pain, unspecified back pain laterality, unspecified chronicity, unspecified whether sciatica present Dysthymic disorder History of recurrent UTIs Personal history of urinary (tract) infection Obesity, Class III, BMI 40-49.9 (morbid obesity) ([facility]) Morbid obesity Post-op pain Other acute postoperative pain Type 2 diabetes mellitus with hyperglycemia, with long-term current use of insulin ([facility]) Paroxysmal SVT (supraventricular tachycardia) ([facility]) Paroxysmal supraventricular tachycardia Neurogenic bowel Encounter for care or replacement of suprapubic tube ([facility]) Attention to cystostomy Type 2 diabetes mellitus with albuminuria ([facility]) ([facility]) Preoperative examination- Primary Preoperative examination, unspecified Colonic dysmotility Unspecified functional disorder of intestine Constipation due to outlet dysfunction Morbid obesity with BMI of 40.0-44.9, adult ([facility]) Morbid obesity Migraine without aura and without status migrainosus, not intractable Migraine without aura, without mention of intractable migraine without mention of status migrainosus History of Manley's palsy Personal history of other disorders of nervous system and sense organs Spina bifida, unspecified hydrocephalus presence, unspecified spinal region ([facility]) Essential hypertension Unspecified essential hypertension Mixed hyperlipidemia Paroxysmal SVT (supraventricular tachycardia) ([facility]) Paroxysmal supraventricular tachycardia Neurogenic bladder Neurogenic bladder, NOS Type 2 diabetes mellitus with hyperglycemia, with long-term current use of insulin ([facility]) Pre-op evaluation- Primary Preoperative examination, unspecified Spina bifida, unspecified hydrocephalus presence, unspecified spinal region ([facility]) Mixed hyperlipidemia Essential hypertension Unspecified essential hypertension Diabetes mellitus with peripheral vascular disease ([facility]) Type II or unspecified type diabetes mellitus with peripheral circulatory disorders, not stated as uncontrolled Neurogenic bowel Fatty liver Other chronic nonalcoholic liver disease Neurogenic bladder Neurogenic bladder, NOS Anxiety and depression Dysthymic disorder Bilateral leg edema Edema Colostomy in place ([facility]) Colostomy status Paroxysmal SVT (supraventricular tachycardia) ([facility]) Paroxysmal supraventricular tachycardia 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 Pre-op testing Preoperative examination, unspecified 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 of spleen Left upper quadrant pain Abdominal pain, left upper quadrant Encounter for screening for cardiovascular disorders Screening for other and unspecified cardiovascular conditions [facility] Preoperative testing- Primary Preoperative examination, unspecified Neurogenic bladder Neurogenic bladder, NOS Spina bifida, unspecified hydrocephalus presence, unspecified spinal region (HCC) Morbid obesity (HCC) Morbid obesity Mixed hyperlipidemia 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) ([facility]) Paroxysmal SVT (supraventricular tachycardia) (HCC) Paroxysmal supraventricular [...] bifida, unspecified hydrocephalus presence, unspecified spinal region ([facility]) Essential hypertension Unspecified essential hypertension Mixed hyperlipidemia Paroxysmal SVT (supraventricular tachycardia) (HCC) Paroxysmal supraventricular tachycardia Fatty liver Other chronic nonalcoholic liver disease Neurogenic bowel DM (diabetes mellitus), secondary, uncontrolled, w/renal complications Secondary diabetes mellitus with renal manifestations, uncontrolled Neurogenic bladder Neurogenic bladder, NOS Amputation of left great toe ([facility]) Low back pain, unspecified back pain laterality, unspecified chronicity, unspecified whether sciatica present Dysthymic disorder History of recurrent UTIs Personal history of urinary (tract) infection Obesity, Class III, BMI 40-49.9 (morbid obesity) ([facility]) Morbid obesity Post-op pain Other acute postoperative pain Type 2 diabetes mellitus with hyperglycemia, with long-term current use of insulin ([facility]) Paroxysmal SVT (supraventricular tachycardia) ([facility]) Paroxysmal supraventricular tachycardia Neurogenic bowel Encounter for care or replacement of suprapubic tube ([facility]) Attention to cystostomy Type 2 diabetes mellitus with albuminuria ([facility]) ([facility]) Preoperative examination- Primary Preoperative examination, unspecified Colonic dysmotility Unspecified functional disorder of intestine Constipation due to outlet dysfunction Morbid obesity with BMI of 40.0-44.9, adult ([facility]) Morbid obesity Migraine without aura and without status migrainosus, not intractable Migraine without aura, without mention of intractable migraine without mention of status migrainosus History of Manley's palsy Personal history of other disorders of nervous system and sense organs Spina bifida, unspecified hydrocephalus presence, unspecified spinal region ([facility]) Essential hypertension Unspecified essential hypertension Mixed hyperlipidemia [...] Dysphagia, oropharyngeal phase [facility]* Diagnosis Preoperative testing- Primary Preoperative examination, [...] Obesity, Class III, BMI 40-49.9 (morbid obesity) ([facility]) Morbid obesity Post-op pain Other acute postoperative pain Type 2 diabetes mellitus with hyperglycemia, with long-term current use of insulin ([facility]) Paroxysmal SVT (supraventricular tachycardia) ([facility]) Paroxysmal supraventricular tachycardia Neurogenic bowel Encounter for care or replacement of suprapubic tube ([facility]) Attention to cystostomy Type 2 diabetes mellitus with albuminuria ([facility]) ([facility]) Preoperative examination- Primary Preoperative examination, unspecified Colonic dysmotility Unspecified functional disorder of intestine Constipation due to outlet dysfunction Morbid obesity with BMI of 40.0-44.9, adult ([facility]) Morbid obesity Migraine without aura and without status migrainosus, not intractable Migraine without aura, without mention of intractable migraine without mention of status migrainosus History of Manley's palsy Personal history of other disorders of nervous system and sense organs Spina bifida, unspecified hydrocephalus presence, unspecified spinal region ([facility]) Essential hypertension Unspecified essential hypertension Mixed hyperlipidemia Paroxysmal SVT (supraventricular tachycardia) ([facility]) Paroxysmal supraventricular tachycardia Neurogenic bladder Neurogenic bladder, NOS Type 2 diabetes mellitus with hyperglycemia, with long-term current use of insulin ([facility]) Pre-op evaluation- Primary Preoperative examination, unspecified Spina bifida, unspecified hydrocephalus presence, unspecified spinal region ([facility]) Mixed hyperlipidemia Essential hypertension Unspecified essential hypertension Diabetes mellitus with peripheral vascular disease ([facility]) Type II or unspecified type diabetes mellitus with peripheral circulatory disorders, not stated as uncontrolled Neurogenic bowel Fatty liver Other chronic nonalcoholic liver disease Neurogenic bladder Neurogenic bladder, NOS Anxiety and depression Dysthymic disorder Bilateral leg edema Edema Colostomy in place ([facility]) Colostomy status Paroxysmal SVT (supraventricular tachycardia) ([facility]) Paroxysmal supraventricular tachycardia 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 Pre-op testing Preoperative examination, unspecified Oropharyngeal dysphagia- Primary Dysphagia, oropharyngeal phase [facility]* Diagnosis Preoperative testing- Primary Preoperative examination, unspecified Neurogenic bladder Neurogenic bladder, NOS Spina bifida, unspecified hydrocephalus presence, unspecified spinal region ([facility]) Morbid obesity (HCC) Morbid obesity Mixed hyperlipidemia Type 2 diabetes mellitus with proteinuria ([facility]) ([facility]) Paroxysmal SVT (supraventricular tachycardia) ([facility]) Paroxysmal supraventricular tachycardia Migraine without aura and [...] bladder, NOS Amputation of left great toe ([facility]) Low back pain, unspecified back pain laterality, unspecified chronicity, unspecified whether sciatica present Dysthymic disorder History of recurrent UTIs Personal history of urinary (tract) infection Obesity, Class III, BMI 40-49.9 (morbid obesity) ([facility]) Morbid obesity Post-op pain Other acute postoperative pain Type 2 diabetes mellitus with hyperglycemia, with long-term current use of insulin ([facility]) Paroxysmal SVT (supraventricular tachycardia) ([facility]) Paroxysmal supraventricular tachycardia Neurogenic bowel Encounter for care or replacement of suprapubic tube ([facility]) Attention to cystostomy Type 2 diabetes mellitus with albuminuria ([facility]) ([facility]) Preoperative examination- Primary Preoperative examination, unspecified Colonic dysmotility Unspecified functional disorder of intestine Constipation due to outlet dysfunction Morbid obesity with BMI of 40.0-44.9, adult ([facility]) Morbid obesity Migraine without aura and without status migrainosus, not intractable Migraine without aura, without mention of intractable migraine without mention of status migrainosus History of Manley's palsy Personal history of other disorders of nervous system and sense organs Spina bifida, unspecified hydrocephalus presence, unspecified spinal region (HCC) Essential hypertension Unspecified essential hypertension Mixed hyperlipidemia Paroxysmal SVT (supraventricular tachycardia) ([facility]) Paroxysmal supraventricular tachycardia Neurogenic bladder Neurogenic bladder, NOS Type 2 diabetes mellitus with hyperglycemia, with long-term current use of insulin ([facility]) Pre-op evaluation- Primary Preoperative examination, unspecified Spina bifida, unspecified hydrocephalus presence, unspecified spinal region ([facility]) Mixed hyperlipidemia Essential hypertension Unspecified essential hypertension [...] Neurogenic bladder, NOS documented in this encounter [facility] note* Diagnosis Preoperative testing- Primary Preoperative examination, unspecified Neurogenic bladder Neurogenic bladder, NOS Spina bifida, unspecified hydrocephalus presence, unspecified spinal region (HCC) Morbid obesity (HCC) Morbid obesity Mixed hyperlipidemia 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) Paroxysmal SVT (supraventricular tachycardia) ([facility]) Paroxysmal supraventricular tachycardia Migraine without aura and [...] bladder, NOS Amputation of left great toe ([facility]) Low back pain, unspecified back pain laterality, unspecified chronicity, unspecified whether sciatica present Dysthymic disorder History of recurrent UTIs Personal history of urinary (tract) infection Obesity, Class III, BMI 40-49.9 (morbid obesity) ([facility]) Morbid obesity Post-op pain Other acute postoperative pain Type 2 diabetes mellitus with hyperglycemia, with long-term current use of insulin (HCC) Paroxysmal SVT (supraventricular tachycardia) ([facility]) Paroxysmal supraventricular tachycardia Neurogenic bowel Encounter for care or replacement of suprapubic tube ([facility]) Attention to cystostomy Preoperative examination- Primary Preoperative [...] hyperglycemia, with long-term current use of insulin ([facility]) Pre-op evaluation- Primary Preoperative examination, unspecified Spina bifida, unspecified hydrocephalus presence, unspecified spinal region (HCC) Mixed hyperlipidemia Essential hypertension Unspecified essential hypertension Diabetes mellitus with peripheral vascular disease ([facility]) Type II or unspecified type diabetes mellitus with peripheral circulatory disorders, not stated as uncontrolled Neurogenic bowel Fatty liver Other chronic nonalcoholic liver disease Neurogenic bladder Neurogenic bladder, NOS Anxiety and depression Dysthymic disorder Bilateral leg edema Edema Colostomy in place ([facility]) Colostomy status Paroxysmal SVT (supraventricular tachycardia) (HCC) Paroxysmal supraventricular tachycardia 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 Pre-op testing Preoperative examination, unspecified Type 2 diabetes mellitus with proteinuria ([facility]) ([facility])- Primary Type 2 diabetes mellitus with albuminuria ([facility]) ([facility]) Diabetes mellitus with peripheral vascular disease ([facility]) Type II or unspecified type diabetes mellitus with peripheral circulatory disorders, not stated as uncontrolled Diabetic eye exam ([facility]) Type II or unspecified type diabetes mellitus [...] bifida, unspecified hydrocephalus presence, unspecified spinal region ([facility]) Encounter for screening mammogram for breast cancer Esophageal dysphagia Dysphagia, pharyngoesophageal phase Nausea Nausea alone [facility]* Diagnosis Preoperative testing- Primary Preoperative examination, [...] bladder, NOS Amputation of left great toe ([facility]) Low back pain, unspecified back pain laterality, unspecified chronicity, unspecified whether sciatica present Dysthymic disorder History of recurrent UTIs Personal history of urinary (tract) infection Obesity, Class III, BMI 40-49.9 (morbid obesity) ([facility]) Morbid obesity Post-op pain Other acute postoperative pain Type 2 diabetes mellitus with hyperglycemia, with long-term current use of insulin (HCC) Paroxysmal SVT (supraventricular tachycardia) (HCC) Paroxysmal supraventricular tachycardia Neurogenic bowel Encounter for care or replacement of suprapubic tube ([facility]) Attention to cystostomy Preoperative examination- Primary Preoperative examination, unspecified Colonic dysmotility Unspecified functional disorder of intestine Constipation due to outlet dysfunction Morbid obesity with BMI of 40.0-44.9, adult ([facility]) Morbid obesity Migraine without aura and without [...] diseases of spleen [facility] Diagnosis Preoperative testing- Primary Preoperative examination, [...] Obesity, Class III, BMI 40-49.9 (morbid obesity) ([facility]) Morbid obesity Post-op pain Other acute postoperative pain Type 2 diabetes mellitus with hyperglycemia, with long-term current use of insulin ([facility]) Paroxysmal SVT (supraventricular tachycardia) (HCC) Paroxysmal supraventricular tachycardia Neurogenic bowel Encounter for care or replacement of suprapubic tube ([facility]) Attention to cystostomy Preoperative examination- Primary Preoperative examination, unspecified Colonic dysmotility Unspecified functional disorder of intestine Constipation due to outlet dysfunction Morbid obesity with BMI of 40.0-44.9, adult ([facility]) Morbid obesity Migraine without aura and without status migrainosus, not intractable Migraine without aura, without mention of intractable migraine without mention of status migrainosus History of Manley's palsy Personal history of other disorders of nervous system and sense organs Spina bifida, unspecified hydrocephalus presence, unspecified spinal region ([facility]) Essential hypertension Unspecified essential hypertension Mixed hyperlipidemia Paroxysmal SVT (supraventricular tachycardia) ([facility]) Paroxysmal supraventricular tachycardia Neurogenic bladder Neurogenic bladder, NOS Type 2 diabetes mellitus with hyperglycemia, with long-term current use of insulin ([facility]) Pre-op evaluation- Primary Preoperative examination, unspecified Spina bifida, unspecified hydrocephalus presence, unspecified spinal region ([facility]) Mixed hyperlipidemia Essential hypertension Unspecified essential hypertension Diabetes mellitus with peripheral vascular disease ([facility]) Type II or unspecified type diabetes mellitus with peripheral circulatory disorders, not stated as uncontrolled Neurogenic bowel Fatty liver Other chronic nonalcoholic liver disease Neurogenic bladder Neurogenic bladder, NOS Anxiety and depression Dysthymic disorder Bilateral leg edema Edema Colostomy in place ([facility]) Colostomy status Paroxysmal SVT (supraventricular tachycardia) (HCC) Paroxysmal supraventricular tachycardia 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 Pre-op testing Preoperative examination, unspecified Thyroid cyst Cyst of thyroid [facility] Diagnosis Preoperative testing- Primary Preoperative examination, unspecified Neurogenic bladder Neurogenic bladder, NOS Spina bifida, unspecified hydrocephalus presence, unspecified spinal region (HCC) Morbid obesity (HCC) Morbid obesity Mixed hyperlipidemia Type 2 diabetes mellitus with proteinuria ([facility]) ([facility]) Paroxysmal SVT (supraventricular tachycardia) (HCC) Paroxysmal supraventricular [...] bladder, NOS Amputation of left great toe ([facility]) Low back pain, unspecified back pain laterality, unspecified chronicity, unspecified whether sciatica present Dysthymic disorder History of recurrent UTIs Personal history of urinary (tract) infection Obesity, Class III, BMI 40-49.9 (morbid obesity) ([facility]) Morbid obesity Post-op pain Other acute postoperative pain Type 2 diabetes mellitus with hyperglycemia, with long-term current use of insulin ([facility]) Paroxysmal SVT (supraventricular tachycardia) (HCC) Paroxysmal supraventricular tachycardia Neurogenic bowel Encounter for care or replacement of suprapubic tube ([facility]) Attention to cystostomy Preoperative examination- Primary Preoperative examination, unspecified Colonic dysmotility Unspecified functional disorder of intestine Constipation due to outlet dysfunction Morbid obesity with BMI of 40.0-44.9, adult ([facility]) Morbid obesity Migraine without aura and without [...] hyperglycemia, with long-term current use of insulin ([facility]) Pre-op evaluation- Primary Preoperative examination, unspecified Spina [...] for breast cancer [facility]* Diagnosis Preoperative testing- Primary Preoperative examination, [...] bladder, NOS Amputation of left great toe ([facility]) Low back pain, unspecified back pain laterality, [...] for care or replacement of suprapubic tube ([facility]) Attention to cystostomy Preoperative examination- Primary Preoperative [...] Cyst of thyroid [facility] Diagnosis Preoperative testing- Primary Preoperative examination, [...] bladder, NOS Amputation of left great toe ([facility]) Low back pain, unspecified back pain laterality, unspecified chronicity, unspecified whether sciatica present Dysthymic disorder History of recurrent UTIs Personal history of urinary (tract) infection Obesity, Class III, BMI 40-49.9 (morbid obesity) ([facility]) Morbid obesity Post-op pain Other acute postoperative pain Type 2 diabetes mellitus with hyperglycemia, with long-term current use of insulin ([facility]) Paroxysmal SVT (supraventricular tachycardia) ([facility]) Paroxysmal supraventricular tachycardia Neurogenic bowel Encounter for care or replacement of suprapubic tube ([facility]) Attention to cystostomy Preoperative examination- Primary Preoperative examination, unspecified Colonic dysmotility Unspecified functional disorder of intestine Constipation due to outlet dysfunction Morbid obesity with BMI of 40.0-44.9, adult ([facility]) Morbid obesity Migraine without aura and without status migrainosus, not intractable Migraine without aura, without mention of intractable migraine without mention of status migrainosus History of Manley's palsy Personal history of other disorders of nervous system and sense organs Spina bifida, unspecified hydrocephalus presence, unspecified spinal region ([facility]) Essential hypertension Unspecified essential hypertension Mixed hyperlipidemia Paroxysmal SVT (supraventricular tachycardia) ([facility]) Paroxysmal supraventricular tachycardia Neurogenic bladder Neurogenic bladder, NOS Type 2 diabetes mellitus with hyperglycemia, with long-term current use of insulin ([facility]) Pre-op evaluation- Primary Preoperative examination, unspecified Spina bifida, unspecified hydrocephalus presence, unspecified spinal region ([facility]) Mixed hyperlipidemia Essential hypertension Unspecified essential hypertension Diabetes mellitus with peripheral vascular disease ([facility]) Type II or unspecified type diabetes mellitus with peripheral circulatory disorders, not stated as uncontrolled Neurogenic bowel Fatty liver Other chronic nonalcoholic liver disease Neurogenic bladder Neurogenic bladder, NOS Anxiety and depression Dysthymic disorder Bilateral leg edema Edema Colostomy in place ([facility]) Colostomy status Paroxysmal SVT (supraventricular tachycardia) ([facility]) Paroxysmal supraventricular tachycardia 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 Pre-op testing Preoperative examination, unspecified Type 2 diabetes mellitus without retinopathy ([facility])- Primary Type II or unspecified type diabetes mellitus without mention of complication, not stated as uncontrolled Myopia, bilateral Myopia Regular astigmatism of both eyes Regular astigmatism Dry eye syndrome of left eye [facility] Diagnosis Preoperative testing- Primary Preoperative examination, [...] bladder, NOS Amputation of left great toe ([facility]) Low back pain, unspecified back pain laterality, unspecified chronicity, unspecified whether sciatica present Dysthymic disorder History of recurrent UTIs Personal history of urinary (tract) infection Obesity, Class III, BMI 40-49.9 (morbid obesity) ([facility]) Morbid obesity Post-op pain Other acute postoperative pain Type 2 diabetes mellitus with hyperglycemia, with long-term current use of insulin (HCC) Paroxysmal SVT (supraventricular tachycardia) ([facility]) Paroxysmal supraventricular tachycardia Neurogenic bowel Encounter for care or replacement of suprapubic tube ([facility]) Attention to cystostomy Preoperative examination- Primary Preoperative [...] Neurogenic bladder, NOS [facility]* Diagnosis Preoperative testing- Primary Preoperative examination, [...] for care or replacement of suprapubic tube ([facility]) Attention to cystostomy Preoperative examination- Primary Preoperative [...] hyperglycemia, with long-term current use of insulin ([facility]) Pre-op evaluation- Primary Preoperative examination, unspecified Spina bifida, unspecified hydrocephalus presence, unspecified spinal region ([facility]) Mixed hyperlipidemia Essential hypertension Unspecified essential hypertension Diabetes mellitus with peripheral vascular disease ([facility]) Type II or unspecified type diabetes mellitus with peripheral circulatory disorders, not stated as uncontrolled Neurogenic bowel Fatty liver Other chronic nonalcoholic liver disease Neurogenic bladder Neurogenic bladder, NOS Anxiety and depression Dysthymic disorder Bilateral leg edema Edema Colostomy in place ([facility]) Colostomy status Paroxysmal SVT (supraventricular tachycardia) (HCC) Paroxysmal supraventricular tachycardia 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 Pre-op testing Preoperative examination, unspecified Suprapubic catheter ([facility])- Primary Other cystostomy status Neurogenic bladder Neurogenic bladder, NOS [facility]* Diagnosis Preoperative testing- Primary Preoperative examination, [...] bladder, NOS Amputation of left great toe ([facility]) Low back pain, unspecified back pain laterality, unspecified chronicity, unspecified whether sciatica present Dysthymic disorder History of recurrent UTIs Personal history of urinary (tract) infection Obesity, Class III, BMI 40-49.9 (morbid obesity) ([facility]) Morbid obesity Post-op pain Other acute postoperative pain Type 2 diabetes mellitus with hyperglycemia, with long-term current use of insulin ([facility]) Paroxysmal SVT (supraventricular tachycardia) ([facility]) Paroxysmal supraventricular tachycardia Neurogenic bowel Encounter for care or replacement of suprapubic tube ([facility]) Attention to cystostomy Preoperative examination- Primary Preoperative examination, unspecified Colonic dysmotility Unspecified functional disorder of intestine Constipation due to outlet dysfunction Morbid obesity with BMI of 40.0-44.9, adult ([facility]) Morbid obesity Migraine without aura and without status migrainosus, not intractable Migraine without aura, without mention of intractable migraine without mention of status migrainosus History of Manley's palsy Personal history of other disorders of nervous system and sense organs Spina bifida, unspecified hydrocephalus presence, unspecified spinal region ([facility]) Essential hypertension Unspecified essential hypertension Mixed hyperlipidemia Paroxysmal SVT (supraventricular tachycardia) (HCC) Paroxysmal supraventricular tachycardia Neurogenic bladder Neurogenic bladder, NOS Type 2 diabetes mellitus with hyperglycemia, with long-term current use of insulin ([facility]) Pre-op evaluation- Primary Preoperative examination, unspecified Spina bifida, unspecified hydrocephalus presence, unspecified spinal region ([facility]) Mixed hyperlipidemia Essential hypertension Unspecified essential hypertension Diabetes mellitus with peripheral vascular disease ([facility]) Type II or unspecified type diabetes mellitus with peripheral circulatory disorders, not stated as uncontrolled Neurogenic bowel Fatty liver Other chronic nonalcoholic liver disease Neurogenic bladder Neurogenic bladder, NOS Anxiety and depression Dysthymic disorder Bilateral leg edema Edema Colostomy in place ([facility]) Colostomy status Paroxysmal SVT (supraventricular tachycardia) (HCC) [...] unspecified back disorder [facility] Diagnosis Preoperative testing- Primary Preoperative examination, unspecified Neurogenic bladder Neurogenic bladder, NOS Spina bifida, unspecified hydrocephalus presence, unspecified spinal region (HCC) Morbid obesity (HCC) Morbid obesity Mixed hyperlipidemia 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) Paroxysmal SVT (supraventricular tachycardia) ([facility]) Paroxysmal supraventricular tachycardia Migraine without aura and [...] bladder, NOS Amputation of left great toe ([facility]) Low back pain, unspecified back pain laterality, [...] for care or replacement of suprapubic tube ([facility]) Attention to cystostomy Preoperative examination- Primary Preoperative [...] of status migrainosus [facility] Diagnosis Preoperative testing- Primary Preoperative [...] bladder, NOS Amputation of left great toe ([facility]) Low back pain, unspecified back pain laterality, unspecified chronicity, unspecified whether sciatica present Dysthymic disorder History of recurrent UTIs Personal history of urinary (tract) infection Obesity, Class III, BMI 40-49.9 (morbid obesity) ([facility]) Morbid obesity Post-op pain Other acute postoperative pain Type 2 diabetes mellitus with hyperglycemia, with long-term current use of insulin ([facility]) Paroxysmal SVT (supraventricular tachycardia) ([facility]) Paroxysmal supraventricular tachycardia Neurogenic bowel Encounter for care or replacement of suprapubic tube ([facility]) Attention to cystostomy Preoperative examination- Primary Preoperative examination, unspecified Colonic dysmotility Unspecified functional disorder of intestine Constipation due to outlet dysfunction Morbid obesity with BMI of 40.0-44.9, adult ([facility]) Morbid obesity Migraine without aura and without status migrainosus, not intractable Migraine without aura, without mention of intractable migraine without mention of status migrainosus History of Manley's palsy Personal history of other disorders of nervous system and sense organs Spina bifida, unspecified hydrocephalus presence, unspecified spinal region ([facility]) Essential hypertension Unspecified essential hypertension Mixed hyperlipidemia Paroxysmal SVT (supraventricular tachycardia) (HCC) Paroxysmal supraventricular tachycardia Neurogenic bladder Neurogenic bladder, NOS Type 2 diabetes mellitus with hyperglycemia, with long-term current use of insulin ([facility]) Pre-op evaluation- Primary Preoperative examination, unspecified Spina bifida, unspecified hydrocephalus presence, unspecified spinal region ([facility]) Mixed hyperlipidemia Essential hypertension Unspecified essential hypertension Diabetes mellitus with peripheral vascular disease ([facility]) Type II or unspecified type diabetes mellitus with peripheral circulatory disorders, not stated as uncontrolled Neurogenic bowel Fatty liver Other chronic nonalcoholic liver disease Neurogenic bladder Neurogenic bladder, NOS Anxiety and depression Dysthymic disorder Bilateral leg edema Edema Colostomy in place ([facility]) Colostomy status Paroxysmal SVT (supraventricular tachycardia) (HCC) Paroxysmal supraventricular tachycardia 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 Pre-op testing Preoperative examination, unspecified Neurogenic bladder- Primary Neurogenic bladder, NOS [facility] Diagnosis Onset Date Resolution Status Admit Date Leukocytosis acute August 11, 2024 10:51pm [facility] Work Phone: Evaluation note* Diagnosis Preoperative testing- [...] Neurogenic bladder, NOS documented in this encounter [facility] note* Diagnosis Preoperative testing- Primary Preoperative examination, [...] for care or replacement of suprapubic tube ([facility]) Attention to cystostomy Preoperative examination- Primary Preoperative [...] bifida, unspecified hydrocephalus presence, unspecified spinal region ([facility]) Essential hypertension Unspecified essential hypertension Mixed hyperlipidemia Paroxysmal SVT (supraventricular tachycardia) (HCC) Paroxysmal supraventricular tachycardia Neurogenic bladder Neurogenic bladder, NOS Type 2 diabetes mellitus with hyperglycemia, with long-term current use of insulin ([facility]) Pre-op evaluation- Primary Preoperative examination, unspecified Spina bifida, unspecified hydrocephalus presence, unspecified spinal region ([facility]) Mixed hyperlipidemia Essential hypertension Unspecified essential hypertension Diabetes mellitus with peripheral vascular disease (HCC) Type II or unspecified type diabetes mellitus with peripheral circulatory disorders, not stated as uncontrolled Neurogenic bowel Fatty liver Other chronic nonalcoholic liver disease Neurogenic bladder Neurogenic bladder, NOS Anxiety and depression Dysthymic disorder Bilateral leg edema Edema Colostomy in place ([facility]) Colostomy status Paroxysmal SVT (supraventricular tachycardia) (HCC) Paroxysmal supraventricular tachycardia 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 Pre-op testing Preoperative examination, unspecified Neurogenic bladder- Primary Neurogenic bladder, NOS [facility] Diagnosis Preoperative testing- Primary Preoperative examination, [...] Obesity, Class III, BMI 40-49.9 (morbid obesity) ([facility]) Morbid obesity Post-op pain Other acute postoperative pain Type 2 diabetes mellitus with hyperglycemia, with long-term current use of insulin ([facility]) Paroxysmal SVT (supraventricular tachycardia) ([facility]) Paroxysmal supraventricular tachycardia Neurogenic bowel Encounter for care or replacement of suprapubic tube ([facility]) Attention to cystostomy Preoperative examination- Primary Preoperative examination, unspecified Colonic dysmotility Unspecified functional disorder of intestine Constipation due to outlet dysfunction Morbid obesity with BMI of 40.0-44.9, adult ([facility]) Morbid obesity Migraine without aura and without status migrainosus, not intractable Migraine without aura, without mention of intractable migraine without mention of status migrainosus History of Manley's palsy Personal history of other disorders of nervous system and sense organs Spina bifida, unspecified hydrocephalus presence, unspecified spinal region ([facility]) Essential hypertension Unspecified essential hypertension Mixed hyperlipidemia Paroxysmal SVT (supraventricular tachycardia) (HCC) Paroxysmal supraventricular tachycardia Neurogenic bladder Neurogenic bladder, NOS Type 2 diabetes mellitus with hyperglycemia, with long-term current use of insulin ([facility]) Pre-op evaluation- Primary Preoperative examination, unspecified Spina bifida, unspecified hydrocephalus presence, unspecified spinal region ([facility]) Mixed hyperlipidemia Essential hypertension Unspecified essential hypertension Diabetes mellitus with peripheral vascular disease ([facility]) Type II or unspecified type diabetes mellitus with peripheral circulatory disorders, not stated as uncontrolled Neurogenic bowel Fatty liver Other chronic nonalcoholic liver disease Neurogenic bladder Neurogenic bladder, NOS Anxiety and depression Dysthymic disorder Bilateral leg edema Edema Colostomy in place ([facility]) Colostomy status Paroxysmal SVT (supraventricular tachycardia) (HCC) Paroxysmal supraventricular tachycardia 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 Pre-op testing Preoperative examination, unspecified Neurogenic bladder Neurogenic bladder, NOS Suprapubic catheter (HCC) Other cystostomy status Type 2 diabetes mellitus without complication, unspecified whether half-way insulin use ([facility]) documented in this encounter [facility]* Diagnosis Preoperative testing- Primary Preoperative examination, unspecified Neurogenic bladder Neurogenic bladder, NOS Spina bifida, unspecified hydrocephalus presence, unspecified spinal region (HCC) Morbid obesity (HCC) Morbid obesity Mixed hyperlipidemia Type 2 diabetes mellitus with proteinuria ([facility]) Paroxysmal SVT (supraventricular tachycardia) ([facility]) Paroxysmal supraventricular tachycardia Migraine without aura and [...] bifida, unspecified hydrocephalus presence, unspecified spinal region ([facility]) Essential hypertension Unspecified essential hypertension Mixed hyperlipidemia [...] Obesity, Class III, BMI 40-49.9 (morbid obesity) ([facility]) Morbid obesity Post-op pain Other acute postoperative pain Type 2 diabetes mellitus with hyperglycemia, with long-term current use of insulin ([facility]) Paroxysmal SVT (supraventricular tachycardia) ([facility]) Paroxysmal supraventricular tachycardia Neurogenic bowel Encounter for care or replacement of suprapubic tube ([facility]) Attention to cystostomy Preoperative examination- Primary Preoperative examination, unspecified Colonic dysmotility Unspecified functional disorder of intestine Constipation due to outlet dysfunction Morbid obesity with BMI of 40.0-44.9, adult ([facility]) Morbid obesity Migraine without aura and without [...] examination, unspecified Type 2 diabetes mellitus with albuminuria ([facility])- Primary [facility] Diagnosis Preoperative testing- Primary Preoperative examination, [...] Obesity, Class III, BMI 40-49.9 (morbid obesity) ([facility]) Morbid obesity Post-op pain Other acute postoperative pain Type 2 diabetes mellitus with hyperglycemia, with long-term current use of insulin ([facility]) Paroxysmal SVT (supraventricular tachycardia) ([facility]) Paroxysmal supraventricular tachycardia Neurogenic bowel Encounter for care or replacement of suprapubic tube ([facility]) Attention to cystostomy Preoperative examination- Primary Preoperative examination, unspecified Colonic dysmotility Unspecified functional disorder of intestine Constipation due to outlet dysfunction Morbid obesity with BMI of 40.0-44.9, adult ([facility]) Morbid obesity Migraine without aura and without status migrainosus, not intractable Migraine without aura, without mention of intractable migraine without mention of status migrainosus History of Manley's palsy Personal history of other disorders of nervous system and sense organs Spina bifida, unspecified hydrocephalus presence, unspecified spinal region ([facility]) Essential hypertension Unspecified essential hypertension Mixed hyperlipidemia Paroxysmal SVT (supraventricular tachycardia) ([facility]) Paroxysmal supraventricular tachycardia Neurogenic bladder Neurogenic bladder, NOS Type 2 diabetes mellitus with hyperglycemia, with long-term current use of insulin ([facility]) Pre-op evaluation- Primary Preoperative examination, unspecified Spina bifida, unspecified hydrocephalus presence, unspecified spinal region ([facility]) Mixed hyperlipidemia Essential hypertension Unspecified essential hypertension Diabetes mellitus with peripheral vascular disease ([facility]) Type II or unspecified type diabetes mellitus with peripheral circulatory disorders, not stated as uncontrolled Neurogenic bowel Fatty liver Other chronic nonalcoholic liver disease Neurogenic bladder Neurogenic bladder, NOS Anxiety and depression Dysthymic disorder Bilateral leg edema Edema Colostomy in place ([facility]) Colostomy status Paroxysmal SVT (supraventricular tachycardia) ([facility]) Paroxysmal supraventricular tachycardia 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 Pre-op testing Preoperative examination, unspecified Medicare annual wellness visit, subsequent- Primary Routine general medical examination at a health care facility Diabetes mellitus with peripheral vascular disease ([facility]) Type II or unspecified type diabetes mellitus with peripheral circulatory disorders, not stated as uncontrolled Type 2 diabetes mellitus with albuminuria ([facility]) Type 2 diabetes mellitus with proteinuria ([facility]) Diabetic eye exam ([facility]) Type II or unspecified type diabetes mellitus without mention of complication, not stated as uncontrolled Essential hypertension Unspecified essential hypertension Mixed hyperlipidemia Migraine without aura and without status migrainosus, not intractable Migraine without aura, without mention of intractable migraine without mention of status migrainosus Bilateral leg edema Edema Neuropathy Mononeuritis of unspecified site Paroxysmal SVT (supraventricular tachycardia) (HCC) Paroxysmal supraventricular tachycardia Thyroid cyst Cyst of thyroid Gastroesophageal reflux disease with esophagitis without hemorrhage Anxiety and depression Dysthymic disorder Dysthymic disorder Major depressive disorder, recurrent, mild Major depressive disorder, recurrent episode, mild Panic attacks Panic disorder without agoraphobia Primary insomnia Persistent disorder of initiating or maintaining sleep Hypomagnesemia Disorders of magnesium metabolism Hyponatremia Hyposmolality and/or hyponatremia Fatty liver Other chronic nonalcoholic liver disease Lipomeningocele (HCC) Spina bifida without mention of hydrocephalus, unspecified region Morbid obesity with BMI of 40.0-44.9, adult (HCC) Morbid obesity Spina bifida, unspecified hydrocephalus presence, unspecified spinal region (HCC) Neurogenic bladder Neurogenic bladder, NOS Neurogenic bowel Colostomy in place (HCC) Colostomy status Encounter for care or replacement of suprapubic tube (HCC) Attention to cystostomy Seasonal allergic rhinitis, unspecified trigger Need for vaccination Need for prophylactic vaccination and inoculation against unspecified single disease Medication management Encounter for long-term (current) use of other medications History of amputation of great toe (HCC) [facility] Preoperative testing- Primary Preoperative [...] Obesity, Class III, BMI 40-49.9 (morbid obesity) ([facility]) Morbid obesity Post-op pain Other acute postoperative pain Type 2 diabetes mellitus with hyperglycemia, with long-term current use of insulin ([facility]) Paroxysmal SVT (supraventricular tachycardia) ([facility]) Paroxysmal supraventricular tachycardia Neurogenic bowel Encounter for care or replacement of suprapubic tube ([facility]) Attention to cystostomy Preoperative examination- Primary Preoperative examination, unspecified Colonic dysmotility Unspecified functional disorder of intestine Constipation due to outlet dysfunction Morbid obesity with BMI of 40.0-44.9, adult ([facility]) Morbid obesity Migraine without aura and without status migrainosus, not intractable Migraine without aura, without mention of intractable migraine without mention of status migrainosus History of Manley's palsy Personal history of other disorders of nervous system and sense organs Spina bifida, unspecified hydrocephalus presence, unspecified spinal region ([facility]) Essential hypertension Unspecified essential hypertension Mixed hyperlipidemia Paroxysmal SVT (supraventricular tachycardia) ([facility]) Paroxysmal supraventricular tachycardia Neurogenic bladder Neurogenic bladder, NOS Type 2 diabetes mellitus with hyperglycemia, with long-term current use of insulin ([facility]) Pre-op evaluation- Primary Preoperative examination, unspecified Spina bifida, unspecified hydrocephalus presence, unspecified spinal region ([facility]) Mixed hyperlipidemia Essential hypertension Unspecified essential hypertension Diabetes mellitus with peripheral vascular disease ([facility]) Type II or unspecified type diabetes mellitus with peripheral circulatory disorders, not stated as uncontrolled Neurogenic bowel Fatty liver Other chronic nonalcoholic liver disease Neurogenic bladder Neurogenic bladder, NOS Anxiety and depression Dysthymic disorder Bilateral leg edema Edema Colostomy in place ([facility]) Colostomy status Paroxysmal SVT (supraventricular tachycardia) ([facility]) Paroxysmal supraventricular tachycardia 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 Pre-op testing Preoperative examination, unspecified Diabetes mellitus with peripheral vascular disease (HCC) Type II or unspecified type diabetes mellitus with peripheral circulatory disorders, not stated as uncontrolled documented in this encounter [facility] note* Diagnosis Preoperative testing- Primary Preoperative examination, [...] for care or replacement of suprapubic tube ([facility]) Attention to cystostomy Preoperative examination- Primary Preoperative [...] spinal cord Pre-op testing Preoperative examination, unspecified Diabetes mellitus with peripheral vascular disease (HCC) Type II or unspecified type diabetes mellitus with peripheral circulatory disorders, not stated as uncontrolled [facility] Diagnosis Preoperative testing- Primary Preoperative examination, [...] for care or replacement of suprapubic tube ([facility]) Attention to cystostomy Preoperative examination- Primary Preoperative examination, unspecified Colonic dysmotility Unspecified functional disorder of intestine Constipation due to outlet dysfunction Morbid obesity with BMI of 40.0-44.9, adult ([facility]) Morbid obesity Migraine without aura and without [...] hyperglycemia, with long-term current use of insulin ([facility]) Pre-op evaluation- Primary Preoperative examination, unspecified Spina bifida, unspecified hydrocephalus presence, unspecified spinal region ([facility]) Mixed hyperlipidemia Essential hypertension Unspecified essential hypertension [...] Neurogenic bladder, NOS [facility] N[facility] No data available for this section [facility] Hospital Discharge instructions No data available for this section [facility] Discharge instructions Additional Instructions Follow-up with Dr. Wing on at 9:15 AM in the office. Take all the antibiotics.[facility] Work Phone: Hospital Discharge instructions Additional Instructions [...] change antibiotic if needed. Pyridium for bladder spasm.[facility] Work Phone: Hospital Discharge instructions Additional Instructions Your CAT scan labs look good. No specific cause for your pain. Motrin and Tylenol for pain. Follow-up if not improving.[facility] Work Phone: Hospital Discharge instructions Additional Instructions Follow-up with your urologist in 3 to 5 days as well.[facility] Work Phone: Hospital Discharge instructionsAdditional Instructions Take antibiotics as prescribed. Follow-up your doctor in outpatient setting and follow-up on urine culture. Return with worsening symptoms or any other concerns.[facility] Work Phone: Hospital Discharge instructionsAdditional Instructions The x-ray of your abdomen showed that your suprapubic catheter had previously been thread too far and was in the urethra which was why it was causing pain and not draining the bladder. There are no findings of bladder perforation/rupture. At this time the catheter was retracted and is now sitting within the bladder indicating by the fact you have draining urine. Please follow-up with your urologist and/or family doctor for repeat evaluation and return to the ER should you have any further [facility] Work Phone: Progress note No data available for this section [facility] Reason for referral (narrative)* Diagnostic Procedure Only (Routine) - Closed Specialty Diagnoses / Procedures Referred By Contac t Referred To Contact XR IMAGING Diagnoses Neurogenic bowel Procedures XR COLONIC TRANSIT IMAGE 3 X-RAY ABD SINGLE AP VIEW Sandra López DO [address] [place] [address] Xr Imaging Referral ID Status Reason Start Date Expiration Date V isits Requested Visits Authorized [id number] Closed Auto-Generate d Referral 08/11/2021 09/10/2022 1 1 [facility] for referral (narrative)* Outpatient Procedure (Routine) - Pending Review Specialty Diagnoses / Procedures Referred By Ren aguilera Referred To Contact [facility] Diagnoses Neurogenic dysfunction of the urinary bladder Procedures SUPRAPUBIC TUBE CHANGE ASPIRATION BLADDER INSERT SUPRAPUBIC CATHETER Cory Box PA-C [address] [place] [address] [facility] [address] [place] [address] Referral ID Status Reason Start Date Expiration Date Visits Requested Visits Authorized [id number] Pending Review Auto-Generat ed Referral 08/31/2021 08/31/2022 12 12 [facility] for referral (narrative)* Diagnostic Procedure Only (Routine) - Pending Review Specialty Diagnoses / Procedures Referred By Ren aguilera Referred To Contact [facility] IM[facility] Diagnoses Encounter for screening mammogram for breast cancer Procedures ANGIE SCREENING SCREENING MAMMOGRAPHY BI 2-VIEW BREAST INC CAD Will Brannon MD [address] [place] [address] [facility] [address] [place] [address] Referral ID Status Reason Start Date Expiration Date Visits Requested Visits Authorized [id number] Pending Review Auto-Generat ed Referral 12/15/2021 01/14/2023 1 1 [facility] for referral (narrative)* Diagnostic Procedure Only (Routine) - Closed Specialty Diagnoses / Procedures Referred By Ren aguilera Referred To Contact [facility] Diagnoses Encounter for screening mammogram for breast cancer Procedures ANGIE SCREENING SCREENING MAMMOGRAPHY BI 2-VIEW BREAST INC CAD Will Brannon MD [address] [place] [address] [facility] [address] [place] [address] Referral ID Status Reason Start Date Expiration Date V isits Requested Visits Authorized [id number] Closed Auto-Generate d Referral 12/15/2021 01/14/2023 1 1 [facility] for referral (narrative)* Diagnostic Procedure Only (Routine) - Authorized Specialty Diagnoses / Procedures Referred By Contac t Referred To Contact US IMAGING Diagnoses Thyroid cyst Procedures US THYROID/PARATHYROID US SOFT TISSUE HEAD & NECK REAL TIME IMGE DOCNetta Walton PA-C [address] [place] [address] [facility] Referral ID Status Reason Start Date Expiration Date Visits Requested Visits Authorized [id number] Authorized Auto-Generat ed Referral 02/09/2022 03/11/2023 1 1 [facility] for referral (narrative)* Diagnostic Procedure Only (Routine) - Closed Specialty Diagnoses / Procedures Referred By Contac t Referred To Contact [facility] IMAGING Diagnoses Thyroid cyst Procedures US THYROID/PARATHYROID US SOFT TISSUE HEAD & NECK REAL TIME IMGE Netta Lock PA-C [address] [place] [address] [facility] Referral ID Status Reason Start Date Expiration Date V isits Requested Visits Authorized [id number] Closed Auto-Generate d Referral 02/09/2022 03/11/2023 1 1 [facility] for referral (narrative)* Outpatient Procedure (Routine) - Pending Review Specialty Diagnoses / Procedures Referred By Contac t Referred To Contact [facility] Diagnoses Neurogenic bladder Procedures SUPRAPUBIC TUBE CHANGE ASPIRATION BLADDER INSERT SUPRAPUBIC CATHETER Cory Box PA-C [address] [place] [address] [facility] [address] [place] [address] Referral ID Status Reason Start Date Expiration Date Visits Requested Visits Authorized [id number] Pending Review Auto-Generat ed Referral 09/06/2022 09/07/2023 99 1 [facility] for referral (narrative)* Diagnostic Procedure Only (Routine) - Pending Review Specialty Diagnoses / Procedures Referred By Contac t Referred To Contact [facility] Diagnoses Encounter for screening mammogram for breast cancer Procedures ANGIE SCREENING SCREENING MAMMOGRAPHY BI 2-VIEW BREAST INC CAD Will Brannon MD [address] [place] [address] [facility] [address] [place] [address] Referral ID Status Reason Start Date Expiration Date Visits Requested Visits Authorized [id number] Pending Review Auto-Generat ed Referral 02/15/2023 03/16/2024 1 1 [facility] for referral (narrative)* Outpatient Procedure (Routine) - Pending Review Specialty Diagnoses / Procedures Referred By Contac t Referred To Contact [facility] [place] Diagnoses Paroxysmal SVT (supraventricular tachycardia) (HCC) Procedures ECG COMPLETE ECG ROUTINE ECG W/LEAST 12 LDS W/I&R Devin George APRN.CNP [address] [place] [address] [address] Referral ID Status Reason Start Date Expiration Date Visits Requested Visits Authorized [id number] Pending [facility] 09/28/2023 09/27/2024 1 1 [facility] for referral (narrative)* Outpatient Procedure (Routine) - Pending Review Specialty Diagnoses / Procedures Referred By Contac t Referred To Contact [facility] Diagnoses Neurogenic bladder Procedures SUPRAPUBIC TUBE CHANGE ASPIRATION BLADDER INSERT SUPRAPUBIC CATHETER Cory Box PA-C [address] [place] [address] [facility] [address] [place] [address] Referral ID Status Reason Start Date Expiration Date Visits Requested Visits Authorized [id number] Pending Review Auto-Generat ed Referral 09/05/2023 09/04/2024 99 1 [facility] for referral (narrative)* Outpatient Procedure (Routine) - Authorized Specialty Diagnoses / Procedures [facility]erred To [facility] Diagnoses Oropharyngeal dysphagia Procedures EGD DIAGNOSTIC ESOPHAGOGASTRODUODENOSC OPY TRANSORAL DIAGNOSTIC Xavier Josue MD [address] [place] [address] [facility] [address] [address] Referral ID Status Reason Start Date Expiration Date Visits Requested Visits Authorized [id number] Authorized Auto-Generat ed Referral 03/04/2024 03/04/2025 1 1 [facility] for referral (narrative)* Outpatient Procedure (Routine) - Closed Specialty Diagnoses / Procedures [facility] Referred To [facility] [place] Diagnoses Oropharyngeal dysphagia Procedures EGD DIAGNOSTIC ESOPHAGOGASTRODUODENOSC OPY TRANSORAL DIAGNOSTIC Xavier Josue MD [address] [place] [address] [facility] [place] [address] [place] [address] Referral ID Status Reason Start Date Expiration Date V isits Requested Visits Authorized [id number] Closed Auto-Generate d Referral 03/04/2024 03/04/2025 1 1 [facility] for referral (narrative)* Diagnostic Procedure Only (Routine) - Authorized Specialty Diagnoses / Procedures Referred By Ren t Referred To Contact [facility] Diagnoses Encounter for screening mammogram for breast cancer Procedures ANGIE SCREENING SCREENING MAMMOGRAPHY BI 2-VIEW BREAST INC CAD Will Brannon MD [address] [place] [address] [facility] [address] [place] [address] Referral ID Status Reason Start Date Expiration Date Visits Requested Visits Authorized [id number] Authorized Auto-Generat ed Referral 4 05/10/2025 1 1 * Diagnostic Procedure Only (Routine) - Authorized Specialty Diagnoses / Procedures Referred By Contac t Referred To Contact US IMAGING Diagnoses Thyroid cyst Procedures US THYROID/PARATHYROID US SOFT TISSUE HEAD & NECK REAL TIME IMGE DOCM Will Brannon MD [address] [place] [address] [place] [address] Referral ID Status Reason Start Date Expiration Date Visits Requested Visits Authorized [id number] Authorized Auto-Generat ed Referral 4 05/10/2025 1 1 [facility] for referral (narrative)No reason for referral information availableWH[facility] Work Phone: Reason for visit Narrative* Diagnostic Procedure Only (Routine) - Closed Specialty Diagnoses / Procedures Referred By Contac t Referred To Contact XR IMAGING Diagnoses Neurogenic bowel Procedures XR COLONIC TRANSIT IMAGE 3 X-RAY ABD SINGLE AP VIEW Sandra López DO [address] [place] [address] Xr Imaging Referral ID Status Reason Start Date Expiration Date V isits Requested Visits Authorized [id number] Closed Auto-Generate d Referral 08/11/2021 09/10/2022 1 1 [facility] for visit Narrative* Outpatient Procedure (Routine) - Closed Specialty Diagnoses / Procedures Referred By Contac t Referred To Contact [facility] Diagnoses Oropharyngeal dysphagia Procedures EGD DIAGNOSTIC ESOPHAGOGASTRODUODENOSC OPY TRANSORAL DIAGNOSTIC Xavier Josue MD [address] [place] [address] [facility] [address] [place] [address] Referral ID Status Reason Start Date Expiration Date V isits Requested Visits Authorized [id number] Closed Auto-Generate d Referral 03/04/2024 03/04/2025 1 1 [facility] for visit Narrative* Diagnostic Procedure Only (Routine) - Closed Specialty Diagnoses / Procedures Referred By Ren t Referred To Contact [facility] Diagnoses Encounter for screening mammogram for breast cancer Procedures ANGIE SCREENING SCREENING MAMMOGRAPHY BI 2-VIEW BREAST INC CAD Will Brannon MD [address] [place] [address] [facility] [address] [place] [address] Referral ID Status Reason Start Date Expiration Date V isits Requested Visits Authorized [id number] Closed Auto-Generate d Referral 04/10/2024 05/10/2025 1 1 [facility] note* CORRY Boyer: PERFORM Event Display: Patient Summary Documents Authored Date: [id number] [facility] Subqxhq note* CORRY Boyer: PERFORM Event Display: Patient Summary Documents Authored Date: [id number] [facility] Suldcoi note* CORRY Boyer: PERFORM Event Display: Patient Summary Documents Authored Date: [id number] [facility] Sufqqiv note* Annamaria Valadez: PERFORM Event Display: Patient Summary Documents Authored Date: [id number] [facility] Sueload note* CORRY Pathak: PERFORM Event Display: Patient Summary Documents Authored Date: [id number] [facility] Summary Purpose Family History No Family History Records Found Relationship Condition Age at Onset Recorded Date/T kelly Not Specified Malignant neoplasm of skin Unknown Arthritis Unknown mother Cerebrovascular accident (CVA) Unknown Disorder of thyroid Unknown Diabetes mellitus Unknown Hypertension Unknown Cardiac disease Unknown Hyperlipidemia Unknown Myocardial infarction 54 father Malignant neoplasm Unknown grandmother Malignant neoplasm Unknown Advance Directives No Advanced Directives Records FoundDocuments on File Type Date Recorded 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 Advance Directive(s) 10/13/2020 12:28 PM Advance Directive(s) 11/07/2018 6:15 AM Advance Directive(s) 12/11/2017 12:01 PM Advance Directive(s) 01/12/2016 11:48 AM Advance Directive(s) 01/05/2016 10:56 AM Documents on File Type Date Recorded 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 Advance Directive(s) 10/13/2020 12:28 PM Advance Directive(s) 11/07/2018 6:15 AM Advance Directive(s) 12/11/2017 12:01 PM Advance Directive(s) 01/12/2016 11:48 AM Advance Directive(s) 01/05/2016 10:56 AM Advance Directive Response Recorded Date/ Time Advance Directives No January 04 018 10:06am Living Will No September 17, 2021 3:21pm Power of Secretary Specialist No September 17 3:21pm Documents on File Type Date Recorded 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 Advance Directive(s) 09/10/2021 10:48 AM Advance Directive(s) 10/13/2020 12:28 PM Advance Directive(s) 11/07/2018 6:15 AM Advance Directive(s) 12/11/2017 12:01 PM Advance Directive(s) 01/12/2016 11:48 AM Advance Directive(s) 01/05/2016 10:56 AM Documents on File Type Date Recorded 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 Advance Directive(s) 09/10/2021 10:48 AM Advance Directive(s) 10/13/2020 12:28 PM Advance Directive(s) 11/07/2018 6:15 AM Advance Directive(s) 12/11/2017 12:01 PM Advance Directive(s) 01/12/2016 11:48 AM Advance Directive(s) 01/05/2016 10:56 AM Advance Directive Response Recorded Date/ Time Advance Directives No January 04 018 10:06am Living Will No November 04, 2021 1 1:50pm Power of Secretary Specialist No November 04, 2021 11:50pm Advance Directive Response Recorded Date/ Time Advance Directives No January 04 018 10:06am Living Will No November 14, 2021 11:25pm Power of Secretary Specialist No November 14 11:25pm Advance Directive Response Recorded Date/ Time Advance Directives No January 04, 2 018 10:06am Living Will No November 20, 2021 10:53pm Power of Secretary Specialist No November 20 10:53pm Advance Directive Response Recorded Date/ Time Advance Directives No January 04, 2 018 10:06am Living Will No November 26, 2021 2 :03pm Power of Secretary Specialist No November 26, 2021 2:03pm Advance Directive Response Recorded Date/ Time Advance Directives No January 10, 2022 12:40pm Living Will No July 13, 2 023 12:24am Power of Secretary Specialist No July 13, 2022 12:24am Advance Directive Response Recorded Date/ Time Advance Directives No January 10, 2022 12:40pm Living Will No July 13, 023 4:51am Power of Secretary Specialist No July 13, 2022 4:51am Advance Directive Response Recorded Date/ Time Advance Directives No January 10, 2022 1:40pm Living Will No August 16, 2022 11:48am Power of Secretary Specialist No August 16 11:48am Advance Directive Response Recorded Date/ Time Advance Directives No January 10, 2022 1:40pm Living Will No October 06, 2022 1 1:11pm Power of Secretary Specialist No October 06, 2022 11:11pm Advance Directive Response Recorded Date/ Time Advance Directives No January 10, 2022 1:40pm Living Will No December 12, 2022 6:52pm Power of Secretary Specialist No December 12 6:52pm Advance Directive Response Recorded Date/ Time Advance Directives No January 10, 2022 1:40pm Living Will No February 02 2 023 7:31pm Power of Secretary Specialist No February 02, 2023 7:31pm Advance Directive Response Recorded Date/ Time Advance Directives No January 10, 2022 12:40pm Living Will No February 02 023 6:31pm Power of Secretary Specialist No February 02, 2023 6:31pm Advance Directive Response Recorded Date/ Time Advance Directives No January 10, 2022 12:40pm Living Will No April 20 023 11:35pm Power of Secretary Specialist No April 20, 2023 11:35pm Advance Directive Response Recorded Date/ Time Advance Directives No January 10, 2022 1:40pm Living Will No August 13, 2023 8:21pm Power of Secretary Specialist No August 12 8:21pm Advance Directive Response Recorded Date/ Time Advance Directives No January 10, 2022 1:40pm Living Will No October 07, 2023 1 :16pm Power of Secretary Specialist No October 07, 2023 1:16pm Advance Directive Response Recorded Date/ Time Living Will No June 09 1:31am Power of Secretary Specialist No June 09, 2024 1:31am Living Will No July 31, 2024 7:02pm Power of Secretary Specialist No July 31 7:02pm Living Will No August 11, 2024 9:42pm Power of Secretary Specialist No August 11 9:42pm Living Will No June 12 11:49pm Power of Secretary Specialist No June 12, 2024 11:49pm Living Will No July 11, 2 025 7:43pm Power of Secretary Specialist No July 11, 2024 7:43pm Advance Directives No January 10, 2022 1:40pm Advance Directive Response Recorded Date/ Time Living Will No June 09 1:31am Do you have a Healthcare Power of Secretary Specialist? No June 09, 2024 1:31am Living Will No July 31, 2024 7:02pm Do you have a Healthcare Power of Secretary Specialist? No July 31, 2024 7:02pm Living Will No August 11, 2024 11:02pm Do you have a Healthcare Power of Secretary Specialist? No August 11, 2024 11:02pm Living Will No June 12 11:49pm Do you have a Healthcare Power of Secretary Specialist? No June 12, 2024 11:49pm Living Will No July 11, 2 025 7:43pm Do you have a Healthcare Power of Secretary Specialist? No July 11, 2024 7:43pm Advance Directives No January 10, 2022 1:40pm Advance Directive Response Recorded Date/ Time Living Will No July 31, 2024 7:02pm Do you have a Healthcare Power of Secretary Specialist? No July 31, 2024 7:02pm Living Will No August 11, 2024 11:02pm Do you have a Healthcare Power of Secretary Specialist? No August 11, 2024 11:02pm Living Will No June 12 11:49pm Do you have a Healthcare Power of Secretary Specialist? No June 12, 2024 11:49pm Living Will No July 11 7:43pm Do you have a Healthcare Power of Secretary Specialist? No July 11, 2024 7:43pm Advance Directives No January 10, 2022 1:40pm Advance Directive Response Recorded Date/ Time Living Will No July 31, 2024 7:02pm Do you have a Healthcare Power of Secretary Specialist? No July 31, 2024 7:02pm Living Will No August 11, 2024 11:02pm Do you have a Healthcare Power of Secretary Specialist? No August 11, 2024 11:02pm Do you have a Healthcare Power of Secretary Specialist? No November 19, 2024 10:08pm Advance Directives No January 10, 2022 1:40pm Advance Directive Response Recorded Date/ Time Do you have a Healthcare Power of Secretary Specialist? No March 08, 2025 8:00pm Do you have a Healthcare Power of Secretary Specialist? No March 09, 2025 2:51am Advance Directives No January 10, 2022 1:40pm Reason for Referral Specialty Diagnoses / Procedures Referred By Ren aguilera 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 CONSULT TO HEMATOLOGY/ONCOLOGY OFFICE/OUTPATIENT [facility] 60 MINUTES Devin George APRN.DIRECTOR [employer]OR STANDARDS [address] [place] [address] Referral ID Status Reason Start Date Expiration Date Visits Requested Visits Authorized [id number] Authorized PCP Requested Referral 12/04/2023 12/03/2024 1 1 Specialty Diagnoses / Procedures Referred By Ren aguilera Referred To Contact Diagnoses 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) Diabetes mellitus with peripheral vascular disease (HCC) Procedures CONSULT TO DIABETES EDUCATION DSME/MNT MEDICAL NUTRITION ASSMT&IVNTJ INDIV EACH 15 [address] MEDICAL NUTRITION ASSMT&IVNTJ INDIV EACH 15 [address] MEDICAL NUTRITION ASSMT&IVNTJ INDIV EACH 15 [address] MEDICAL NUTRITION ASSMT&IVNTJ INDIV EACH 15 CT Devin George APRN.DIRECTOR [employer] [address] [place] [address] Referral ID Status Reason Start Date Expiration Date Visits Requested Visits Authorized [id number] Authorized PCP Requested Referral 10/09/2023 10/08/2024 1 1 Specialty Diagnoses / Procedures Referred By Contac t Referred To Contact Endocrinology Diagnoses 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) Diabetes mellitus with peripheral vascular disease (HCC) Procedures CONSULT TO ENDOCRINOLOGY OFFICE/OUTPATIENT [facility] 60 MINUTES Devin George APRN.DIRECTOR [employer]ANDAR[employer] [address] [place] [address] Sandrita Johnson MD [address] [place] [address] Referral ID Status Reason Start Date Expiration Date Visits Requested Visits Authorized [id number] Authorized PCP Requested Referral 10/09/2023 10/08/2024 1 1 Specialty Diagnoses / Procedures Referred By Contac t Referred To Contact Diagnoses Tethered cord (HCC) Pre-op testing Procedures REFER TO PACC - PRE ANESTHESIA CONSULTATION CLINIC OFFICE/OUTPATIENT [facility] 60 MINUTES Hilda Nick PA-C [address] [place] [id number] Referral ID Status Reason Start Date Expiration Date Visits Requested Visits Authorized [id number] Authorized PCP Requested Referral 09/26/2023 09/25/2024 1 1 Specialty Diagnoses / Procedures Referred By Contac t Referred To Contact Neurosurgery Diagnoses Lipomeningocele (HCC) Procedures CONSULT TO NEUROSURGERY OFFICE/OUTPATIENT [facility] 60 MINUTES Stephan Nicholson MD [address] [place] [address] Daiana Sweeney MD [address] [phone] Referral ID Status Reason Start Date Expiration Date Visits Requested Visits Authorized [id number] Authorized PCP Requested Referral 07/18/2023 07/17/2024 1 1 Specialty Diagnoses / Procedures Referred By Contac t Referred To Contact MR IMAGING Diagnoses Chronic bilateral low back pain without sciatica Procedures MRI LUMBAR SPINE WO IVCON MRI SPINAL CANAL LUMBAR W/O CONTRAST MATERIAL Stephan Nicholson MD [facility] [place] [address] Mr Imaging [place] [address] Referral ID Status Reason Start Date Expiration Date Visits Requested Visits Authorized [id number] Authorized Auto-Generat ed Referral 07/18/2023 08/16/2024 1 1 Specialty Diagnoses / Procedures Referred By Contac t Referred To Contact MR IMAGING Diagnoses Radiculopathy of lumbar region Procedures MRI THORACIC SPINE WO IVCON MRI SPINAL CANAL THORACIC W/O CONTRAST Stephan Braden MD [facility] [place] [address] Mr Imaging [place] [address] Referral ID Status Reason Start Date Expiration Date Visits Requested Visits Authorized [id number] Authorized Auto-Generat ed Referral 07/18/2023 08/16/2024 1 1 Specialty Diagnoses / Procedures Referred By Contac t Referred To Contact MR IMAGING Diagnoses Spinal stenosis of cervical region Procedures MRI CERVICAL SPINE WO IVCON MRI SPINAL CANAL CERVICAL W/O CONTRAST Stephan Braden MD [address] [place] [address] Mr Imaging [place] [address] Referral ID Status Reason Start Date Expiration Date Visits Requested Visits Authorized [id number] Authorized Auto-Generat ed Referral 07/18/2023 08/16/2024 1 [...] CONSULT TO MINIMALLY INVASIVE GYNECOLOGIC SURGERY OFFICE/OUTPATIENT [facility] 60-74 MINUTES Joni Barraza MD [address] [place] [address] Referral ID Status Reason Start Date Expiration Date Visits Requested Visits Authorized [id number] Authorized PCP Requested Referral Auto-Generate d Referral 05/02/2023 05/01/2024 1 1 Specialty Diagnoses / Procedures Referred By Contac t Referred To Contact US IMAGING Diagnoses Abnormal uterine bleeding (AUB) Procedures US FEMALE PELVIS TRANSABD LTD US PELVIC NONOBSTETRIC IMAGE [facility] LIMITED/F/U Joni Barraza MD [address] [place] [address] [place] [address] Referral ID Status Reason Start Date Expiration Date Visits Requested Visits Authorized [id number] Pending Review Auto-Generat ed Referral 05/02/2023 05/31/2024 1 1 Specialty Diagnoses / Procedures Referred By Contac t Referred To Contact US IMAGING Diagnoses Abnormal uterine bleeding (AUB) Procedures US FEMALE PELVIS TRANSVAG US TRANSVAGINAL Joni Barraza MD [address] [place] [address] [place] [address] Referral ID Status Reason Start Date Expiration Date Visits Requested Visits Authorized [id number] Pending Review Auto-Generat ed Referral 05/02/2023 05/31/2024 1 1 Specialty Diagnoses / Procedures Referred By Contac t Referred To Contact MR IMAGING Diagnoses Abnormal reflex Procedures MRI CERVICAL SPINE WO IVCON MRI SPINAL CANAL CERVICAL W/O CONTRAST MATRL Araceli Torres PA-C [address] [place] [address] [place] [address] Referral ID Status Reason Start Date Expiration Date Visits Requested Visits Authorized [id number] Authorized Auto-Generat ed Referral 05/02/2023 05/31/2024 1 1 Specialty Diagnoses / Procedures Referred By Contac t Referred To Contact Diagnoses Intractable chronic migraine with aura and without status migrainosus Neuropathy Paresthesias Araceli Torres PA-C [address] [place] [address] Referral ID Status Reason Start Date Expiration Date V isits Requested Visits Authorized [id number] Pending Review 1 1 Specialty Diagnoses / Procedures Referred By Contac t Referred To Contact MR IMAGING Diagnoses Positional headache Procedures MRI BRAIN WO/W IVCON MRI BRAIN BRAIN STEM W/O W/CONTRAST MATERIAL Araceli Torres PA-C [address] [place] [address] Mr Imaging [facility] Referral ID Status Reason Start Date Expiration Date Visits Requested Visits Authorized [id number] Authorized Auto-Generat ed Referral 05/02/2023 05/31/2024 1 1 Specialty Diagnoses / Procedures Referred By Contac t Referred To Contact General Surgery Diagnoses Thyroid cyst Thyroid nodule Procedures CONSULT TO GENERAL SURGERY OFFICE/OUTPATIENT [facility] 60-74 MINUTES Netta Higgins PA-C [address] [place] [address] Referral ID Status Reason Start Date Expiration Date Visits Requested Visits Authorized [id number] Authorized PCP Requested Referral 02/15/2022 02/15/2023 1 1 Specialty Diagnoses / Procedures Referred By Contac t Referred To Contact Allergy Diagnoses Anaphylaxis, initial encounter Procedures CONSULT TO ALLERGY/IMMUNOLOGY OFFICE/OUTPATIENT [facility] 60-74 MINUTES Sandra López DO [address] [place] [phone] Referral ID Status Reason Start Date Expiration Date Visits Requested Visits Authorized [id number] Authorized PCP Requested Referral 10/27/2021 10/27/2022 1 1 Specialty Diagnoses / Procedures Referred By Contac t Referred To Contact MR IMAGING Diagnoses Manley's palsy Facial weakness Procedures MRI BRAIN WO/W IVCON MRI BRAIN BRAIN STEM W/O W/CONTRAST MATERIAL Jaimee Carbajal APRN.DIRECTOR [employer]OR STANDARDS [address] [place] [phone] Mr Imaging Referral ID Status Reason Start Date Expiration Date Visits Requested Visits Authorized [id number] Authorized Auto-Generat ed Referral 08/26/2021 09/25/2022 1 1 Specialty Diagnoses / Procedures Referred By Contac t Referred To Contact [facility] Diagnoses Neuropathy Spinal stenosis of lumbar region without neurogenic claudication Procedures EMG(NEURO/NI) NERVE CONDUCTION STUDIES 9-10 STUDIES Jaimee Carbajal APRN.DIRECTOR [employer] STANDARDS [address] [place] [address] [facility] [place] [address] [place] [address] Referral ID Status Reason Start Date Expiration Date Visits Requested Visits Authorized [id number] Pending Review Auto-Generat ed Referral 08/26/2021 08/26/2022 1 1 Specialty Diagnoses / Procedures Referred By Contac t Referred To Contact MR IMAGING Diagnoses Spinal stenosis of lumbar region without neurogenic claudication Procedures MRI LUMBAR SPINE WO IVCON MRI SPINAL CANAL LUMBAR W/O CONTRAST MATERIAL Jaimee Carbajal, SLIP MAKER.DIRECTOR [employer]OR STANDARDS [address] [place] [address] Mr Imaging Referral ID Status Reason Start Date Expiration Date Visits Requested Visits Authorized [id number] Authorized Auto-Generat ed Referral 08/26/2021 09/25/2022 1 1 Chief Complaint and Reason for Visit Chief Complaint gu bladder pain CELLULITIS CELLULITIS NEURO NEUROPATHY,SPINAL STENOSIS gu complaint Chief Complaint CELLULITIS NEURO NEUROPATHY,SPINAL STENOSIS gu complaint LAB WORK Chief Complaint NEUROPATHY,SPINAL ST ENOSIS gu complaint [facility] LAB WORK FLANK PAIN Chief Complaint NEUROPATHY,SPINAL ST ENOSIS gu complaint [facility] LAB WORK FLANK PAIN complain Chief Complaint NEUROPATHY,SPINAL ST ENOSIS gu complaint [facility] LAB WORK FLANK PAIN complain LEFT FOOT CELLULITIS LEFT FOOT CELLULITIS Reason for Visit Cellulitis Chief Complaint NEUROPATHY,SPINAL ST ENOSIS gu complaint [facility] LAB WORK FLANK PAIN complain LEFT [...] 2024 10:51pm Noncompliance with diabetes treatment [facility] 2024 10:51pm Sepsis August 11, 2024 [...] 11, 2024 10:51pm Noncompliance with diabetes treatment [facility] 2024 10:51pm Sepsis August 11, 2024 10: 51pm Therapy failure due to antibiotic resist ance August 11, 2024 10:51pm Type 2 diabetes mellitus with foot ulcer August 11, 2024 10:51pm Chief Complaint Admit Date FOOT INFECTION July 31, 2024 3:04 pm [...] LAB WORK September 09, 2024 8:3 5am November 19, 2024 8:57 pm Chief Complaint Admit Date FLANK March 08, 2025 6 :49pm gu complaint March 09, 2025 2 :50am Health Concerns Infection Onset Date Last Indicated Resolved Time COVID-19 Rule-Out 02/28/2022 02/28/2022 Additional Source Comments INFORMATION SOURCE (unrecogn ized section and content) DATE CREATED AUTHOR 11/14/2017 [facility] DATE CREATED AUTHOR AUTHOR'S ORGANIZ ATION 11/22/2017 [facility] DATE CREATED AUTHOR AUTHOR'S ORGANIZ ATION 12/26/2017 [facility] DATE CREATED AUTHOR AUTHOR'S ORGANIZ ATION 01/09/2018 [facility] DATE CREATED AUTHOR AUTHOR'S ORGANIZ ATION 12/23/2022 [facility] DATE CREATED AUTHOR AUTHOR'S ORGANIZ ATION 01/06/2023 [facility] DATE CREATED AUTHOR AUTHOR'S ORGANIZ ATION 05/15/2023 [facility] DATE CREATED AUTHOR AUTHOR'S ORGANIZ ATION 01/01/2024 [facility] ([place]) DATE CREATED AUTHOR AUTHOR'S ORGANIZ ATION 04/06/2025 [facility] DATE CREATED AUTHOR AUTHOR'S ORGANIZ ATION 04/10/2025 [facility] DATE CREATED AUTHOR AUTHOR'S ORGANIZ ATION 04/10/[address] [facility] Source Comments (unrecognize d section and content) In the event this informatio n is protected by the Federal Confidentiality of Alcohol and Drug Abuse Patient Records regulations: The Federal rules restrict any use of the information to criminally investigate or prosecute any alcohol or drug abuse patient.[facility] the event this information is protected by the Federal Confidentiality of Alcohol and Drug Abuse Patient Records regulations: The Federal rules restrict any use of the information to criminally investigate or prosecute any alcohol or drug abuse patient.[facility] the event this information is protected by the Federal Confidentiality of Alcohol and Drug Abuse Patient Records regulations: The Federal rules restrict any use of the information to criminally investigate or prosecute any alcohol or drug abuse patient.[facility] the event this information is protected by the Federal Confidentiality of Alcohol and Drug Abuse Patient Records regulations: The Federal rules restrict any use of the information to criminally investigate or prosecute any alcohol or drug abuse patient.[facility] the event this information is protected by the Federal Confidentiality of Alcohol and Drug Abuse Patient Records regulations: The Federal rules restrict any use of the information to criminally investigate or prosecute any alcohol or drug abuse patient.[facility] the event this information is protected by the Federal Confidentiality of Alcohol and Drug Abuse Patient Records regulations: The Federal rules restrict any use of the information to criminally investigate or prosecute any alcohol or drug abuse patient.[facility] the event this information is protected by the Federal Confidentiality of Alcohol and Drug Abuse Patient Records regulations: The Federal rules restrict any use of the information to criminally investigate or prosecute any alcohol or drug abuse patient.[facility] the event this information is protected by the Federal Confidentiality of Alcohol and Drug Abuse Patient Records regulations: The Federal rules restrict any use of the information to criminally investigate or prosecute any alcohol or drug abuse patient.[facility] the event this information is protected by the Federal Confidentiality of Alcohol and Drug Abuse Patient Records regulations: The Federal rules restrict any use of the information to criminally investigate or prosecute any alcohol or drug abuse patient.[facility] the event this information is protected by the Federal Confidentiality of Alcohol and Drug Abuse Patient Records regulations: The Federal rules restrict any use of the information to criminally investigate or prosecute any alcohol or drug abuse patient.[facility] the event this information is protected by the Federal Confidentiality of Alcohol and Drug Abuse Patient Records regulations: The Federal rules restrict any use of the information to criminally investigate or prosecute any alcohol or drug abuse patient.[facility] the event this information is protected by the Federal Confidentiality of Alcohol and Drug Abuse Patient Records regulations: The Federal rules restrict any use of the information to criminally investigate or prosecute any alcohol or drug abuse patient.[facility] the event this information is protected by the Federal Confidentiality of Alcohol and Drug Abuse Patient Records regulations: The Federal rules restrict any use of the information to criminally investigate or prosecute any alcohol or drug abuse patient.[facility] the event this information is protected by the Federal Confidentiality of Alcohol and Drug Abuse Patient Records regulations: The Federal rules restrict any use of the information to criminally investigate or prosecute any alcohol or drug abuse patient.[facility] the event this information is protected by the Federal Confidentiality of Alcohol and Drug Abuse Patient Records regulations: The Federal rules restrict any use of the information to criminally investigate or prosecute any alcohol or drug abuse patient.[facility] the event this information is protected by the Federal Confidentiality of Alcohol and Drug Abuse Patient Records regulations: The Federal rules restrict any use of the information to criminally investigate or prosecute any alcohol or drug abuse patient.[facility] the event this information is protected by the Federal Confidentiality of Alcohol and Drug Abuse Patient Records regulations: The Federal rules restrict any use of the information to criminally investigate or prosecute any alcohol or drug abuse patient.[facility] the event this information is protected by the Federal Confidentiality of Alcohol and Drug Abuse Patient Records regulations: The Federal rules restrict any use of the information to criminally investigate or prosecute any alcohol or drug abuse patient.[facility]In the event this information is protected by the Federal Confidentiality of Alcohol and Drug Abuse Patient Records regulations: The Federal rules restrict any use of the information to criminally investigate or prosecute any alcohol or drug abuse patient.[facility]In the event this information is protected by the Federal Confidentiality of Alcohol and Drug Abuse Patient Records regulations: The Federal rules restrict any use of the information to criminally investigate or prosecute any alcohol or drug abuse patient.[facility]In the event this information is protected by the Federal Confidentiality of Alcohol and Drug Abuse Patient Records regulations: The Federal rules restrict any use of the information to criminally investigate or prosecute any alcohol or drug abuse patient.[facility]In the event this information is protected by the Federal Confidentiality of Alcohol and Drug Abuse Patient Records regulations: The Federal rules restrict any use of the information to criminally investigate or prosecute any alcohol or drug abuse patient.[facility]In the event this information is protected by the Federal Confidentiality of Alcohol and Drug Abuse Patient Records regulations: The Federal rules restrict any use of the information to criminally investigate or prosecute any alcohol or drug abuse patient.[facility]In the event this information is protected by the Federal Confidentiality of Alcohol and Drug Abuse Patient Records regulations: The Federal rules restrict any use of the information to criminally investigate or prosecute any alcohol or drug abuse patient.[facility]In the event this information is protected by the Federal Confidentiality of Alcohol and Drug Abuse Patient Records regulations: The Federal rules restrict any use of the information to criminally investigate or prosecute any alcohol or drug abuse patient.[facility]In the event this information is protected by the Federal Confidentiality of Alcohol and Drug Abuse Patient Records regulations: The Federal rules restrict any use of the information to criminally investigate or prosecute any alcohol or drug abuse patient.[facility]In the event this information is protected by the Federal Confidentiality of Alcohol and Drug Abuse Patient Records regulations: The Federal rules restrict any use of the information to criminally investigate or prosecute any alcohol or drug abuse patient.[facility]In the event this information is protected by the Federal Confidentiality of Alcohol and Drug Abuse Patient Records regulations: The Federal rules restrict any use of the information to criminally investigate or prosecute any alcohol or drug abuse patient.[facility] HospitalIn the event this information is protected by the Federal Confidentiality of Alcohol and Drug Abuse Patient Records regulations: The Federal rules restrict any use of the information to criminally investigate or prosecute any alcohol or drug abuse patient.[facility]In the event this information is protected by the Federal Confidentiality of Alcohol and Drug Abuse Patient Records regulations: The Federal rules restrict any use of the information to criminally investigate or prosecute any alcohol or drug abuse patient.[facility]In the event this information is protected by the Federal Confidentiality of Alcohol and Drug Abuse Patient Records regulations: The Federal rules restrict any use of the information to criminally investigate or prosecute any alcohol or drug abuse patient.[facility]In the event this information is protected by the Federal Confidentiality of Alcohol and Drug Abuse Patient Records regulations: The Federal rules restrict any use of the information to criminally investigate or prosecute any alcohol or drug abuse patient.[facility]In the event this information is protected by the Federal Confidentiality of Alcohol and Drug Abuse Patient Records regulations: The Federal rules restrict any use of the information to criminally investigate or prosecute any alcohol or drug abuse patient.[facility] HospitalIn the event this information is protected by the Federal Confidentiality of Alcohol and Drug Abuse Patient Records regulations: The Federal rules restrict any use of the information to criminally investigate or prosecute any alcohol or drug abuse patient.[facility] HospitalIn the event this information is protected by the Federal Confidentiality of Alcohol and Drug Abuse Patient Records regulations: The Federal rules restrict any use of the information to criminally investigate or prosecute any alcohol or drug abuse patient.[facility] HospitalIn the event this information is protected by the Federal Confidentiality of Alcohol and Drug Abuse Patient Records regulations: The Federal rules restrict any use of the information to criminally investigate or prosecute any alcohol or drug abuse patient.[facility] HospitalIn the event this information is protected by the Federal Confidentiality of Alcohol and Drug Abuse Patient Records regulations: The Federal rules restrict any use of the information to criminally investigate or prosecute any alcohol or drug abuse patient.[facility] HospitalIn the event this information is protected by the Federal Confidentiality of Alcohol and Drug Abuse Patient Records regulations: The Federal rules restrict any use of the information to criminally investigate or prosecute any alcohol or drug abuse patient.[facility] HospitalIn the event this information is protected by the Federal Confidentiality of Alcohol and Drug Abuse Patient Records regulations: The Federal rules restrict any use of the information to criminally investigate or prosecute any alcohol or drug abuse patient.[facility] HospitalIn the event this information is protected by the Federal Confidentiality of Alcohol and Drug Abuse Patient Records regulations: The Federal rules restrict any use of the information to criminally investigate or prosecute any alcohol or drug abuse patient.[facility]In the event this information is protected by the Federal Confidentiality of Alcohol and Drug Abuse Patient Records regulations: The Federal rules restrict any use of the information to criminally investigate or prosecute any alcohol or drug abuse patient.[facility] HospitalIn the event this information is protected by the Federal Confidentiality of Alcohol and Drug Abuse Patient Records regulations: The Federal rules restrict any use of the information to criminally investigate or prosecute any alcohol or drug abuse patient.[facility] HospitalIn the event this information is protected by the Federal Confidentiality of Alcohol and Drug Abuse Patient Records regulations: The Federal rules restrict any use of the information to criminally investigate or prosecute any alcohol or drug abuse patient.[facility] HospitalIn the event this information is protected by the Federal Confidentiality of Alcohol and Drug Abuse Patient Records regulations: The Federal rules restrict any use of the information to criminally investigate or prosecute any alcohol or drug abuse patient.[facility] HospitalIn the event this information is protected by the Federal Confidentiality of Alcohol and Drug Abuse Patient Records regulations: The Federal rules restrict any use of the information to criminally investigate or prosecute any alcohol or drug abuse patient.[facility] HospitalIn the event this information is protected by the Federal Confidentiality of Alcohol and Drug Abuse Patient Records regulations: The Federal rules restrict any use of the information to criminally investigate or prosecute any alcohol or drug abuse patient.[facility] HospitalIn the event this information is protected by the Federal Confidentiality of Alcohol and Drug Abuse Patient Records regulations: The Federal rules restrict any use of the information to criminally investigate or prosecute any alcohol or drug abuse patient.[facility] HospitalIn the event this information is protected by the Federal Confidentiality of Alcohol and Drug Abuse Patient Records regulations: The Federal rules restrict any use of the information to criminally investigate or prosecute any alcohol or drug abuse patient.[facility] HospitalIn the event this information is protected by the Federal Confidentiality of Alcohol and Drug Abuse Patient Records regulations: The Federal rules restrict any use of the information to criminally investigate or prosecute any alcohol or drug abuse patient.[facility] HospitalIn the event this information is protected by the Federal Confidentiality of Alcohol and Drug Abuse Patient Records regulations: The Federal rules restrict any use of the information to criminally investigate or prosecute any alcohol or drug abuse patient.[facility] HospitalIn the event this information is protected by the Federal Confidentiality of Alcohol and Drug Abuse Patient Records regulations: The Federal rules restrict any use of the information to criminally investigate or prosecute any alcohol or drug abuse patient.[facility] HospitalIn the event this information is protected by the Federal Confidentiality of Alcohol and Drug Abuse Patient Records regulations: The Federal rules restrict any use of the information to criminally investigate or prosecute any alcohol or drug abuse patient.[facility] HospitalIn the event this information is protected by the Federal Confidentiality of Alcohol and Drug Abuse Patient Records regulations: The Federal rules restrict any use of the information to criminally investigate or prosecute any alcohol or drug abuse patient.[facility] HospitalIn the event this information is protected by the Federal Confidentiality of Alcohol and Drug Abuse Patient Records regulations: The Federal rules restrict any use of the information to criminally investigate or prosecute any alcohol or drug abuse patient.[facility] HospitalIn the event this information is protected by the Federal Confidentiality of Alcohol and Drug Abuse Patient Records regulations: The Federal rules restrict any use of the information to criminally investigate or prosecute any alcohol or drug abuse patient.[facility] HospitalIn the event this information is protected by the Federal Confidentiality of Alcohol and Drug Abuse Patient Records regulations: The Federal rules restrict any use of the information to criminally investigate or prosecute any alcohol or drug abuse patient.[facility] HospitalIn the event this information is protected by the Federal Confidentiality of Alcohol and Drug Abuse Patient Records regulations: The Federal rules restrict any use of the information to criminally investigate or prosecute any alcohol or drug abuse patient.[facility] HospitalIn the event this information is protected by the Federal Confidentiality of Alcohol and Drug Abuse Patient Records regulations: The Federal rules restrict any use of the information to criminally investigate or prosecute any alcohol or drug abuse patient.[facility] HospitalIn the event this information is protected by the Federal Confidentiality of Alcohol and Drug Abuse Patient Records regulations: The Federal rules restrict any use of the information to criminally investigate or prosecute any alcohol or drug abuse patient.[facility] HospitalIn the event this information is protected by the Federal Confidentiality of Alcohol and Drug Abuse Patient Records regulations: The Federal rules restrict any use of the information to criminally investigate or prosecute any alcohol or drug abuse patient.[facility] HospitalIn the event this information is protected by the Federal Confidentiality of Alcohol and Drug Abuse Patient Records regulations: The Federal rules restrict any use of the information to criminally investigate or prosecute any alcohol or drug abuse patient.[facility] HospitalIn the event this information is protected by the Federal Confidentiality of Alcohol and Drug Abuse Patient Records regulations: The Federal rules restrict any use of the information to criminally investigate or prosecute any alcohol or drug abuse patient.[facility] HospitalIn the event this information is protected by the Federal Confidentiality of Alcohol and Drug Abuse Patient Records regulations: The Federal rules restrict any use of the information to criminally investigate or prosecute any alcohol or drug abuse patient.[facility] HospitalIn the event this information is protected by the Federal Confidentiality of Alcohol and Drug Abuse Patient Records regulations: The Federal rules restrict any use of the information to criminally investigate or prosecute any alcohol or drug abuse patient.[facility] HospitalIn the event this information is protected by the Federal Confidentiality of Alcohol and Drug Abuse Patient Records regulations: The Federal rules restrict any use of the information to criminally investigate or prosecute any alcohol or drug abuse patient.[facility] HospitalIn the event this information is protected by the Federal Confidentiality of Alcohol and Drug Abuse Patient Records regulations: The Federal rules restrict any use of the information to criminally investigate or prosecute any alcohol or drug abuse patient.[facility] HospitalIn the event this information is protected by the Federal Confidentiality of Alcohol and Drug Abuse Patient Records regulations: The Federal rules restrict any use of the information to criminally investigate or prosecute any alcohol or drug abuse patient.[facility] HospitalIn the event this information is protected by the Federal Confidentiality of Alcohol and Drug Abuse Patient Records regulations: The Federal rules restrict any use of the information to criminally investigate or prosecute any alcohol or drug abuse patient.[facility]In the event this information is protected by the Federal Confidentiality of Alcohol and Drug Abuse Patient Records regulations: The Federal rules restrict any use of the information to criminally investigate or prosecute any alcohol or drug abuse patient.[facility] HospitalIn the event this information is protected by the Federal Confidentiality of Alcohol and Drug Abuse Patient Records regulations: The Federal rules restrict any use of the information to criminally investigate or prosecute any alcohol or drug abuse patient.[facility] HospitalIn the event this information is protected by the Federal Confidentiality of Alcohol and Drug Abuse Patient Records regulations: The Federal rules restrict any use of the information to criminally investigate or prosecute any alcohol or drug abuse patient.[facility]In the event this information is protected by the Federal Confidentiality of Alcohol and Drug Abuse Patient Records regulations: The Federal rules restrict any use of the information to criminally investigate or prosecute any alcohol or drug abuse patient.[facility]In the event this information is protected by the Federal Confidentiality of Alcohol and Drug Abuse Patient Records regulations: The Federal rules restrict any use of the information to criminally investigate or prosecute any alcohol or drug abuse patient.[facility]In the event this information is protected by the Federal Confidentiality of Alcohol and Drug Abuse Patient Records regulations: The Federal rules restrict any use of the information to criminally investigate or prosecute any alcohol or drug abuse patient.[facility] HospitalIn the event this information is protected by the Federal Confidentiality of Alcohol and Drug Abuse Patient Records regulations: The Federal rules restrict any use of the information to criminally investigate or prosecute any alcohol or drug abuse patient.[facility] HospitalIn the event this information is protected by the Federal Confidentiality of Alcohol and Drug Abuse Patient Records regulations: The Federal rules restrict any use of the information to criminally investigate or prosecute any alcohol or drug abuse patient.[facility]In the event this information is protected by the Federal Confidentiality of Alcohol and Drug Abuse Patient Records regulations: The Federal rules restrict any use of the information to criminally investigate or prosecute any alcohol or drug abuse patient.[facility]In the event this information is protected by the Federal Confidentiality of Alcohol and Drug Abuse Patient Records regulations: The Federal rules restrict any use of the information to criminally investigate or prosecute any alcohol or drug abuse patient.[facility]In the event this information is protected by the Federal Confidentiality of Alcohol and Drug Abuse Patient Records regulations: The Federal rules restrict any use of the information to criminally investigate or prosecute any alcohol or drug abuse patient.[facility]In the event this information is protected by the Federal Confidentiality of Alcohol and Drug Abuse Patient Records regulations: The Federal rules restrict any use of the information to criminally investigate or prosecute any alcohol or drug abuse patient.[facility]In the event this information is protected by the Federal Confidentiality of Alcohol and Drug Abuse Patient Records regulations: The Federal rules restrict any use of the information to criminally investigate or prosecute any alcohol or drug abuse patient.[facility]In the event this information is protected by the Federal Confidentiality of Alcohol and Drug Abuse Patient Records regulations: The Federal rules restrict any use of the information to criminally investigate or prosecute any alcohol or drug abuse patient.[facility]In the event this information is protected by the Federal Confidentiality of Alcohol and Drug Abuse Patient Records regulations: The Federal rules restrict any use of the information to criminally investigate or prosecute any alcohol or drug abuse patient.[facility]In the event this information is protected by the Federal Confidentiality of Alcohol and Drug Abuse Patient Records regulations: The Federal rules restrict any use of the information to criminally investigate or prosecute any alcohol or drug abuse patient.[facility]In the event this information is protected by the Federal Confidentiality of Alcohol and Drug Abuse Patient Records regulations: The Federal rules restrict any use of the information to criminally investigate or prosecute any alcohol or drug abuse patient.[facility]In the event this information is protected by the Federal Confidentiality of Alcohol and Drug Abuse Patient Records regulations: The Federal rules restrict any use of the information to criminally investigate or prosecute any alcohol or drug abuse patient.[facility] HospitalIn the event this information is protected by the Federal Confidentiality of Alcohol and Drug Abuse Patient Records regulations: The Federal rules restrict any use of the information to criminally investigate or prosecute any alcohol or drug abuse patient.[facility]In the event this information is protected by the Federal Confidentiality of Alcohol and Drug Abuse Patient Records regulations: The Federal rules restrict any use of the information to criminally investigate or prosecute any alcohol or drug abuse patient.[facility]In the event this information is protected by the Federal Confidentiality of Alcohol and Drug Abuse Patient Records regulations: The Federal rules restrict any use of the information to criminally investigate or prosecute any alcohol or drug abuse patient.[facility] HospitalIn the event this information is protected by the Federal Confidentiality of Alcohol and Drug Abuse Patient Records regulations: The Federal rules restrict any use of the information to criminally investigate or prosecute any alcohol or drug abuse patient.[facility] HospitalIn the event this information is protected by the Federal Confidentiality of Alcohol and Drug Abuse Patient Records regulations: The Federal rules restrict any use of the information to criminally investigate or prosecute any alcohol or drug abuse patient.[facility]In the event this information is protected by the Federal Confidentiality of Alcohol and Drug Abuse Patient Records regulations: The Federal rules restrict any use of the information to criminally investigate or prosecute any alcohol or drug abuse patient.[facility]In the event this information is protected by the Federal Confidentiality of Alcohol and Drug Abuse Patient Records regulations: The Federal rules restrict any use of the information to criminally investigate or prosecute any alcohol or drug abuse patient.[facility]In the event this information is protected by the Federal Confidentiality of Alcohol and Drug Abuse Patient Records regulations: The Federal rules restrict any use of the information to criminally investigate or prosecute any alcohol or drug abuse patient.[facility]In the event this information is protected by the Federal Confidentiality of Alcohol and Drug Abuse Patient Records regulations: The Federal rules restrict any use of the information to criminally investigate or prosecute any alcohol or drug abuse patient.[facility]In the event this information is protected by the Federal Confidentiality of Alcohol and Drug Abuse Patient Records regulations: The Federal rules restrict any use of the information to criminally investigate or prosecute any alcohol or drug abuse patient.[facility]In the event this information is protected by the Federal Confidentiality of Alcohol and Drug Abuse Patient Records regulations: The Federal rules restrict any use of the information to criminally investigate or prosecute any alcohol or drug abuse patient.[facility]In the event this information is protected by the Federal Confidentiality of Alcohol and Drug Abuse Patient Records regulations: The Federal rules restrict any use of the information to criminally investigate or prosecute any alcohol or drug abuse patient.[facility]In the event this information is protected by the Federal Confidentiality of Alcohol and Drug Abuse Patient Records regulations: The Federal rules restrict any use of the information to criminally investigate or prosecute any alcohol or drug abuse patient.[facility]In the event this information is protected by the Federal Confidentiality of Alcohol and Drug Abuse Patient Records regulations: The Federal rules restrict any use of the information to criminally investigate or prosecute any alcohol or drug abuse patient.[facility]In the event this information is protected by the Federal Confidentiality of Alcohol and Drug Abuse Patient Records regulations: The Federal rules restrict any use of the information to criminally investigate or prosecute any alcohol or drug abuse patient.[facility]In the event this information is protected by the Federal Confidentiality of Alcohol and Drug Abuse Patient Records regulations: The Federal rules restrict any use of the information to criminally investigate or prosecute any alcohol or drug abuse patient.[facility]In the event this information is protected by the Federal Confidentiality of Alcohol and Drug Abuse Patient Records regulations: The Federal rules restrict any use of the information to criminally investigate or prosecute any alcohol or drug abuse patient.[facility]In the event this information is protected by the Federal Confidentiality of Alcohol and Drug Abuse Patient Records regulations: The Federal rules restrict any use of the information to criminally investigate or prosecute any alcohol or drug abuse patient.[facility] HospitalIn the event this information is protected by the Federal Confidentiality of Alcohol and Drug Abuse Patient Records regulations: The Federal rules restrict any use of the information to criminally investigate or prosecute any alcohol or drug abuse patient.[facility] HospitalIn the event this information is protected by the Federal Confidentiality of Alcohol and Drug Abuse Patient Records regulations: The Federal rules restrict any use of the information to criminally investigate or prosecute any alcohol or drug abuse patient.[facility] HospitalIn the event this information is protected by the Federal Confidentiality of Alcohol and Drug Abuse Patient Records regulations: The Federal rules restrict any use of the information to criminally investigate or prosecute any alcohol or drug abuse patient.[facility] HospitalIn the event this information is protected by the Federal Confidentiality of Alcohol and Drug Abuse Patient Records regulations: The Federal rules restrict any use of the information to criminally investigate or prosecute any alcohol or drug abuse patient.[facility] HospitalIn the event this information is protected by the Federal Confidentiality of Alcohol and Drug Abuse Patient Records regulations: The Federal rules restrict any use of the information to criminally investigate or prosecute any alcohol or drug abuse patient.[facility] HospitalIn the event this information is protected by the Federal Confidentiality of Alcohol and Drug Abuse Patient Records regulations: The Federal rules restrict any use of the information to criminally investigate or prosecute any alcohol or drug abuse patient.[facility] HospitalIn the event this information is protected by the Federal Confidentiality of Alcohol and Drug Abuse Patient Records regulations: The Federal rules restrict any use of the information to criminally investigate or prosecute any alcohol or drug abuse patient.[facility] HospitalIn the event this information is protected by the Federal Confidentiality of Alcohol and Drug Abuse Patient Records regulations: The Federal rules restrict any use of the information to criminally investigate or prosecute any alcohol or drug abuse patient.[facility] HospitalIn the event this information is protected by the Federal Confidentiality of Alcohol and Drug Abuse Patient Records regulations: The Federal rules restrict any use of the information to criminally investigate or prosecute any alcohol or drug abuse patient.[facility] HospitalIn the event this information is protected by the Federal Confidentiality of Alcohol and Drug Abuse Patient Records regulations: The Federal rules restrict any use of the information to criminally investigate or prosecute any alcohol or drug abuse patient.[facility] HospitalIn the event this information is protected by the Federal Confidentiality of Alcohol and Drug Abuse Patient Records regulations: The Federal rules restrict any use of the information to criminally investigate or prosecute any alcohol or drug abuse patient.[facility] HospitalIn the event this information is protected by the Federal Confidentiality of Alcohol and Drug Abuse Patient Records regulations: The Federal rules restrict any use of the information to criminally investigate or prosecute any alcohol or drug abuse patient.[facility] HospitalIn the event this information is protected by the Federal Confidentiality of Alcohol and Drug Abuse Patient Records regulations: The Federal rules restrict any use of the information to criminally investigate or prosecute any alcohol or drug abuse patient.[facility] HospitalIn the event this information is protected by the Federal Confidentiality of Alcohol and Drug Abuse Patient Records regulations: The Federal rules restrict any use of the information to criminally investigate or prosecute any alcohol or drug abuse patient.[facility] HospitalIn the event this information is protected by the Federal Confidentiality of Alcohol and Drug Abuse Patient Records regulations: The Federal rules restrict any use of the information to criminally investigate or prosecute any alcohol or drug abuse patient.[facility] HospitalIn the event this information is protected by the Federal Confidentiality of Alcohol and Drug Abuse Patient Records regulations: The Federal rules restrict any use of the information to criminally investigate or prosecute any alcohol or drug abuse patient.[facility] HospitalIn the event this information is protected by the Federal Confidentiality of Alcohol and Drug Abuse Patient Records regulations: The Federal rules restrict any use of the information to criminally investigate or prosecute any alcohol or drug abuse patient.[facility] HospitalIn the event this information is protected by the Federal Confidentiality of Alcohol and Drug Abuse Patient Records regulations: The Federal rules restrict any use of the information to criminally investigate or prosecute any alcohol or drug abuse patient.[facility] HospitalIn the event this information is protected by the Federal Confidentiality of Alcohol and Drug Abuse Patient Records regulations: The Federal rules restrict any use of the information to criminally investigate or prosecute any alcohol or drug abuse patient.[facility] HospitalIn the event this information is protected by the Federal Confidentiality of Alcohol and Drug Abuse Patient Records regulations: The Federal rules restrict any use of the information to criminally investigate or prosecute any alcohol or drug abuse patient.[facility] HospitalIn the event this information is protected by the Federal Confidentiality of Alcohol and Drug Abuse Patient Records regulations: The Federal rules restrict any use of the information to criminally investigate or prosecute any alcohol or drug abuse patient.[facility] HospitalIn the event this information is protected by the Federal Confidentiality of Alcohol and Drug Abuse Patient Records regulations: The Federal rules restrict any use of the information to criminally investigate or prosecute any alcohol or drug abuse patient.[facility] HospitalIn the event this information is protected by the Federal Confidentiality of Alcohol and Drug Abuse Patient Records regulations: The Federal rules restrict any use of the information to criminally investigate or prosecute any alcohol or drug abuse patient.[facility] HospitalIn the event this information is protected by the Federal Confidentiality of Alcohol and Drug Abuse Patient Records regulations: The Federal rules restrict any use of the information to criminally investigate or prosecute any alcohol or drug abuse patient.[facility] HospitalIn the event this information is protected by the Federal Confidentiality of Alcohol and Drug Abuse Patient Records regulations: The Federal rules restrict any use of the information to criminally investigate or prosecute any alcohol or drug abuse patient.[facility] HospitalIn the event this information is protected by the Federal Confidentiality of Alcohol and Drug Abuse Patient Records regulations: The Federal rules restrict any use of the information to criminally investigate or prosecute any alcohol or drug abuse patient.[facility] HospitalIn the event this information is protected by the Federal Confidentiality of Alcohol and Drug Abuse Patient Records regulations: The Federal rules restrict any use of the information to criminally investigate or prosecute any alcohol or drug abuse patient.[facility] HospitalIn the event this information is protected by the Federal Confidentiality of Alcohol and Drug Abuse Patient Records regulations: The Federal rules restrict any use of the information to criminally investigate or prosecute any alcohol or drug abuse patient.[facility] HospitalIn the event this information is protected by the Federal Confidentiality of Alcohol and Drug Abuse Patient Records regulations: The Federal rules restrict any use of the information to criminally investigate or prosecute any alcohol or drug abuse patient.[facility] HospitalIn the event this information is protected by the Federal Confidentiality of Alcohol and Drug Abuse Patient Records regulations: The Federal rules restrict any use of the information to criminally investigate or prosecute any alcohol or drug abuse patient.[facility] HospitalIn the event this information is protected by the Federal Confidentiality of Alcohol and Drug Abuse Patient Records regulations: The Federal rules restrict any use of the information to criminally investigate or prosecute any alcohol or drug abuse patient.[facility] HospitalIn the event this information is protected by the Federal Confidentiality of Alcohol and Drug Abuse Patient Records regulations: The Federal rules restrict any use of the information to criminally investigate or prosecute any alcohol or drug abuse patient.[facility] HospitalIn the event this information is protected by the Federal Confidentiality of Alcohol and Drug Abuse Patient Records regulations: The Federal rules restrict any use of the information to criminally investigate or prosecute any alcohol or drug abuse patient.[facility] HospitalIn the event this information is protected by the Federal Confidentiality of Alcohol and Drug Abuse Patient Records regulations: The Federal rules restrict any use of the information to criminally investigate or prosecute any alcohol or drug abuse patient.[facility] HospitalIn the event this information is protected by the Federal Confidentiality of Alcohol and Drug Abuse Patient Records regulations: The Federal rules restrict any use of the information to criminally investigate or prosecute any alcohol or drug abuse patient.[facility] HospitalIn the event this information is protected by the Federal Confidentiality of Alcohol and Drug Abuse Patient Records regulations: The Federal rules restrict any use of the information to criminally investigate or prosecute any alcohol or drug abuse patient.[facility] HospitalIn the event this information is protected by the Federal Confidentiality of Alcohol and Drug Abuse Patient Records regulations: The Federal rules restrict any use of the information to criminally investigate or prosecute any alcohol or drug abuse patient.[facility] HospitalIn the event this information is protected by the Federal Confidentiality of Alcohol and Drug Abuse Patient Records regulations: The Federal rules restrict any use of the information to criminally investigate or prosecute any alcohol or drug abuse patient.[facility] HospitalIn the event this information is protected by the Federal Confidentiality of Alcohol and Drug Abuse Patient Records regulations: The Federal rules restrict any use of the information to criminally investigate or prosecute any alcohol or drug abuse patient.[facility] HospitalIn the event this information is protected by the Federal Confidentiality of Alcohol and Drug Abuse Patient Records regulations: The Federal rules restrict any use of the information to criminally investigate or prosecute any alcohol or drug abuse patient.[facility] HospitalIn the event this information is protected by the Federal Confidentiality of Alcohol and Drug Abuse Patient Records regulations: The Federal rules restrict any use of the information to criminally investigate or prosecute any alcohol or drug abuse patient.[facility] HospitalIn the event this information is protected by the Federal Confidentiality of Alcohol and Drug Abuse Patient Records regulations: The Federal rules restrict any use of the information to criminally investigate or prosecute any alcohol or drug abuse patient.[facility] HospitalIn the event this information is protected by the Federal Confidentiality of Alcohol and Drug Abuse Patient Records regulations: The Federal rules restrict any use of the information to criminally investigate or prosecute any alcohol or drug abuse patient.[facility] HospitalIn the event this information is protected by the Federal Confidentiality of Alcohol and Drug Abuse Patient Records regulations: The Federal rules restrict any use of the information to criminally investigate or prosecute any alcohol or drug abuse patient.[facility] HospitalIn the event this information is protected by the Federal Confidentiality of Alcohol and Drug Abuse Patient Records regulations: The Federal rules restrict any use of the information to criminally investigate or prosecute any alcohol or drug abuse patient.[facility] HospitalIn the event this information is protected by the Federal Confidentiality of Alcohol and Drug Abuse Patient Records regulations: The Federal rules restrict any use of the information to criminally investigate or prosecute any alcohol or drug abuse patient.[facility] HospitalIn the event this information is protected by the Federal Confidentiality of Alcohol and Drug Abuse Patient Records regulations: The Federal rules restrict any use of the information to criminally investigate or prosecute any alcohol or drug abuse patient.[facility] HospitalIn the event this information is protected by the Federal Confidentiality of Alcohol and Drug Abuse Patient Records regulations: The Federal rules restrict any use of the information to criminally investigate or prosecute any alcohol or drug abuse patient.[facility] HospitalIn the event this information is protected by the Federal Confidentiality of Alcohol and Drug Abuse Patient Records regulations: The Federal rules restrict any use of the information to criminally investigate or prosecute any alcohol or drug abuse patient.[facility] HospitalIn the event this information is protected by the Federal Confidentiality of Alcohol and Drug Abuse Patient Records regulations: The Federal rules restrict any use of the information to criminally investigate or prosecute any alcohol or drug abuse patient.[facility] HospitalIn the event this information is protected by the Federal Confidentiality of Alcohol and Drug Abuse Patient Records regulations: The Federal rules restrict any use of the information to criminally investigate or prosecute any alcohol or drug abuse patient.[facility] HospitalIn the event this information is protected by the Federal Confidentiality of Alcohol and Drug Abuse Patient Records regulations: The Federal rules restrict any use of the information to criminally investigate or prosecute any alcohol or drug abuse patient.[facility] HospitalIn the event this information is protected by the Federal Confidentiality of Alcohol and Drug Abuse Patient Records regulations: The Federal rules restrict any use of the information to criminally investigate or prosecute any alcohol or drug abuse patient.[facility] HospitalIn the event this information is protected by the Federal Confidentiality of Alcohol and Drug Abuse Patient Records regulations: The Federal rules restrict any use of the information to criminally investigate or prosecute any alcohol or drug abuse patient.[facility] HospitalIn the event this information is protected by the Federal Confidentiality of Alcohol and Drug Abuse Patient Records regulations: The Federal rules restrict any use of the information to criminally investigate or prosecute any alcohol or drug abuse patient.[facility] HospitalIn the event this information is protected by the Federal Confidentiality of Alcohol and Drug Abuse Patient Records regulations: The Federal rules restrict any use of the information to criminally investigate or prosecute any alcohol or drug abuse patient.[facility] Reason for Visit (unrecogniz ed section and content) Reason Comments Established Patient Specialty Diagnoses / Procedures Referred By Contac t 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 CONSULT TO HEMATOLOGY/ONCOLOGY OFFICE/OUTPATIENT [facility] 60 MINUTES Devin George APRN.DIRECTOR [employer] [address] [place] [address] Referral ID Status Reason Start Date Expiration Date V isits Requested Visits Authorized [id number] Closed PCP Requested Referral 12/04/2023 12/03/2024 1 1 Reason Comments Residential Leasing Manager - Other Orders Patient Question Reason Comments Residential Leasing Manager - Other Orders Patient Question Appointment Returning Patient's Call Reason Comments EMG order to [facility] Reason Comments New Medical Consult patient Specialty Diagnoses / Procedures Referred By Contac t Referred To Contact Neurology Diagnoses Spina bifida, unspecified hydrocephalus presence, unspecified spinal region (HCC) Neuropathy Procedures CONSULT TO NEUROLOGY NEW PATIENT VISIT LEVEL 5 Netta Higgins PA-C [address] [place] [address] Referral ID Status Reason Start Date Expiration Date V isits Requested Visits Authorized [id number] Closed PCP Requested Referral 11/23/2020 11/23/2021 1 1 Reason Comments Nurse Visit Reason Comments Residential Leasing Manager - Other Orders Specialty Diagnoses / Procedures Referred By Contac t Referred To Contact MR IMAGING Diagnoses Manley's palsy Facial weakness Procedures MRI BRAIN WO/W IVCON MRI BRAIN BRAIN STEM W/O W/CONTRAST MATERIAL Solomon Jaimee, SLIP MAKER.DIRECTOR [employer] [address] [place] [address] Mr Imaging Referral ID Status Reason Start Date Expiration Date V isits Requested Visits Authorized [id number] Closed Auto-Generate d Referral 08/26/2021 09/25/2022 1 1 Specialty Diagnoses / Procedures Referred By Contac t Referred To Contact MR IMAGING Diagnoses Spinal stenosis of lumbar region without neurogenic claudication Procedures MRI LUMBAR SPINE WO IVCON MRI SPINAL CANAL LUMBAR W/O CONTRAST MATERIAL Solomon Jaimee, SLIP MAKER.[employer]OR [employer] [address] [place] [address] Mr Imaging Referral ID Status Reason Start Date Expiration Date V isits Requested Visits Authorized [id number] Closed Auto-Generate d Referral 08/26/2021 09/25/2022 1 1 Reason Comments Anesthesia Consult Reason Comments PreOp Call A1C Reason Comments Patient Request Reason Comments Post Op Reason Comments Appointment Reason Comments D/C Summary Events Reason Comments Residential Leasing Manager - Other Reason Comments New Specialty Diagnoses / Procedures Referred By Contac t Referred To Contact Allergy Diagnoses Anaphylaxis, initial encounter Procedures CONSULT TO ALLERGY/IMMUNOLOGY OFFICE/OUTPATIENT NEW HIGH MDM 60-74 MINUTES Sandra López DO [address] [place] [address] Referral ID Status Reason Start Date Expiration Date V isits Requested Visits Authorized [id number] Closed PCP Requested Referral 10/27/2021 10/27/2022 1 1 Reason Comments Follow Up Reason Comments Nurse Visit Reason Comments Radiology Mammogram Specialty Diagnoses / Procedures Referred By Contac t Referred To Contact BR IMAGING Diagnoses Encounter for screening mammogram for breast cancer Procedures ANGIE SCREENING SCREENING MAMMOGRAPHY BI 2-VIEW BREAST INC CAD Will Brannon MD [address] [place] [address] [facility] [address] [place] [address] Referral ID Status Reason Start Date Expiration Date V isits Requested Visits Authorized [id number] Closed Auto-Generate d Referral 12/15/2021 01/14/2023 1 1 Reason Comments Recheck Reason Comments Results Reason Comments Radiology US Specialty Diagnoses / Procedures Referred By Contac t Referred To Contact US IMAGING Diagnoses Thyroid cyst Procedures US THYROID/PARATHYROID US SOFT TISSUE HEAD & NECK REAL TIME IMGE Netta Lock PA-C [address] [place] [address] [facility] Referral ID Status Reason Start Date Expiration Date V isits Requested Visits Authorized [id number] Closed Auto-Generate d Referral 02/09/2022 03/11/2023 1 1 Reason Comments Consult Thyroid nodule Reason Comments Results Reason Comments Follow Up thyroid Reason Comments Diarrhea Upset stomach, cold and hot chills, nausea x 1 day Reason Comments Cook Catheter Change Nurse Visit Reason Comments Nurse Visit Tube Change-suprapubic Reason Comments XRay Report Reason Comments Cystoscopy-1 Reason Comments ER F/U [facility] ER Reason Comments Nurse Visit Cook [...] To Contact Diagnoses Metrorrhagia Procedures CONSULT TO [employer] [facility] OFFICE/OUTPATIENT [facility] 60-74 MINUTES Will Brannon MD [address] [place] [address] Referral ID Status Reason Start Date Expiration Date V isits Requested Visits Authorized [id number] Closed PCP Requested Referral Auto-Generated Referral 03/29/2023 03/28/2024 1 1 Reason Comments Patient Update Reason Comments Follow Up Reason Comments Outside Imaging Specialty Diagnoses / Procedures Referred By Contac t Referred To Contact MR IMAGING Diagnoses Spinal stenosis of cervical region Procedures MRI CERVICAL SPINE WO IVCON MRI SPINAL CANAL CERVICAL W/O CONTRAST Stephan Braden MD [address] [place] [address] Mr Imaging [place] [address] Referral ID Status Reason Start Date Expiration Date V isits Requested Visits Authorized [id number] Closed Auto-Generate d Referral 07/18/2023 08/16/2024 1 1 Specialty Diagnoses / Procedures Referred By Contac t Referred To Contact Neurosurgery Diagnoses Lipomeningocele (HCC) Procedures CONSULT TO NEUROSURGERY OFFICE/OUTPATIENT [facility] 60 MINUTES Stephan Nicholson MD [address] [place] [address] Daiana Sweeney MD [facility] [place] [address] Referral ID Status Reason Start Date Expiration Date V isits Requested Visits Authorized [id number] Closed PCP Requested Referral 07/18/2023 07/17/2024 1 1 Reason Comments Medicare Wellness Exam Reason Comments Nurse Visit Supra Pubic catheter change Reason Comments SPT Reason Comments Follow Up Discuss labs Reason Comments Pre-Op Exam Specialty Diagnoses / Procedures Referred By Contac t Referred To Contact Diagnoses Tethered cord (HCC) Pre-op testing Procedures REFER TO PACC - PRE ANESTHESIA CONSULTATION CLINIC OFFICE/OUTPATIENT [facility] 60 MINUTES Hilda Nick PA-C [address] [place] [address] Referral ID Status Reason Start Date Expiration Date V isits Requested Visits Authorized [id number] Closed PCP Requested Referral 09/26/2023 09/25/2024 1 1 Reason Comments Ext / micro labs Reason Comments Outside [id number] Ordered Reason Comments Received Outside Medical Records [...] DSME/MNT MEDICAL NUTRITION ASSMT&IVNTJ INDIV EACH 15 CT MEDICAL NUTRITION ASSMT&IVNTJ INDIV EACH 15 CT MEDICAL NUTRITION ASSMT&IVNTJ INDIV EACH 15 CT MEDICAL NUTRITION ASSMT&IVNTJ INDIV EACH 15 CT Devin George APRN.DIRECTOR [employer] [address] [place] [address] Referral ID Status Reason Start Date Expiration Date V isits Requested Visits Authorized [id number] Closed PCP Requested Referral 10/09/2023 10/08/2024 1 1 Reason Comments Nurse Visit SPT SPT change Reason Onset Date Comments Refill Request 01/31/2024 Reason Comments Schedule Surgery Reason Comments Consult Reason Comments ED Follow-up Reason Comments Radiology US Specialty Diagnoses / Procedures Referred By Ren t Referred To Contact US IMAGING Diagnoses Splenic infarct Procedures US ABD SPLEEN US ABDOMINAL REAL TIME W/[place] [address] [place] [address] [place] [address] Referral ID Status Reason Start Date Expiration Date V isits Requested Visits Authorized [id number] Closed Auto-Generate d Referral 03/18/2024 01/18/2025 1 1 Reason Comments Nurse Visit SPT Tube change Reason Comments F/U 6 months Specialty Diagnoses / Procedures Referred By Ren t Referred To Contact US IMAGING Diagnoses Thyroid cyst Procedures US THYROID/PARATHYROID US SOFT TISSUE HEAD & NECK REAL TIME IMGE Will Maldonado MD [address] [place] [address] [place] [address] Referral ID Status Reason Start Date Expiration Date V isits Requested Visits Authorized [id number] Closed Auto-Generate d Referral 04/10/2024 05/10/2025 1 1 Reason Comments Diabetic Eye Exam Type 2 IDDM Reason Comments ER F/U [facility] - ER Reason Comments SPT Reason Comments ER Discharge Summary Reason Comments Established Patient MIGRAINE, CERVICAL V ERTEBRAL FUSION Reason Comments nose bleeds Headache Reason Comments Nurse Visit SPT tube change Reason Comments Outside Infectious Disease Reason Comments Outside Ortho Procedure Reason Onset Date Comments Population Health Navigation Outreach 10/14/2024 Norma/Workbench/ACO Reason Onset Date Comments Population Health Navigation Outreach 11/19/2024 [place]/Workbench/ACO Reason Comments Received Outside Medical Records [facility] ED visit, without admission Reason Comments Follow Up Neurogenic Bladder SPT SPT tube change Reason Onset Date Comments Population Health Navigation Outreach 12/19/2024 [place]/Workbench/ACO Reason Comments Nurse Visit SPT Change Care Teams (unrecognized sec tion and content) [...] 11, 2024 End: August 16, 2024 Dr. Mc Gonzalez DPM Other Provider Active St art: [...] Active S tart: August 12, 2024 Dr. Mc Gonzalez DPM Other Provider Active St art: [...] August 13, 2024 Dr. Quynh Boyer DO Other Provider Active S tart: August 13, 2024 Dr. Bev Ngo MD Other Provider Active Start: August 13, 2024 Dr. Mc Gonzalez DPM Other Provider Active St art: [...] Provider Active Start: August 14, 2024 Dr. Mc Gonzalez DPM Other Provider Active St art: [...] Provider Active Start: August 15, 2024 Dr. Mc Gonzalez DPM Other Provider Active St art: August 15, 2024 Team Status: Active Member Role Status Dates Dr. Will Brannon MD Primary Care Provider Active Start: August 16, 2024 Dr. Kevin Barcenas MD Emergency Provider Active S tart: August 16, 2024 Dr. Ramana Rose DO Admit Provider Active Start: August 16, 2024 Dr. Ramana Rose DO Other Provider Active Start: August 16, 2024 Dr. Quynh Boyer DO Attending Provider Active Start: August 16, 2024 Dr. Quynh Boyer DO Other Provider Active S tart: August 16, 2024 Dr. Bev Ngo MD Other Provider Active Start: August 16, 2024 Dr. Mc Gonzalez DPM Other Provider Active St art: [...] Referring Provider Active Start: September 09, 2024 Signalling And Communications Engineer Relationship Specialty Start Date End Date Will Brannon MD [address] [place] [address] PCP - General Family Practice 02/10/[address] [facility] [address] Boyer 02/22/[address] [facility] [address] Faria 02/22/19 Signalling And Communications Engineer Relationship Specialty Start Date End Date Will Brannon MD [address] [place] [address] PCP - General Family Practice 02/10/15 [facility] [address] Boyer 02/22/[address] [facility] [address] Faria 02/22/19 Signalling And Communications Engineer Relationship Specialty Start Date End Date Will Brannon MD [address] [place] [address] PCP - General Family Practice 02/10/15 [facility] [address] Boyer 02/22/[address] [facility] [address] Faria 02/22/19 Signalling And Communications Engineer Relationship Specialty Start Date End Date Will Brannon MD [address] [facility] [place] [address] PCP - General Family Practice 02/10/15 [facility] Dr Boyer 02/22/[address] [facility] [address] Faria 02/22/19 Signalling And Communications Engineer Relationship Specialty Start Date End Date Will Brannon MD [address] [place] [address] PCP - General Family Practice 02/10/15 [facility] Boyer 02/22/[address] [facility] [address] Faria 02/22/19 Signalling And Communications Engineer Relationship Specialty Start Date End Date Will Brannon MD [address] [place] [address] PCP - General Family Practice 02/10/15 [facility] Dr Boyer 02/22/[address] [facility] [address] Faria 02/22/19 Signalling And Communications Engineer Relationship Specialty Start Date End Date Will Brannon MD [address] [place] [address] PCP - General Family Practice 02/10/15 [facility] Dr Boyer 02/22/[address] [facility] [address] Faria 02/22/19 Signalling And Communications Engineer Relationship Specialty Start Date End Date Will Brannon MD [address] [place] [address] PCP - General Family Practice 02/10/15 [facility] Dr Boyer 02/22/[address] [facility] [address] Faria 02/22/19 Signalling And Communications Engineer Relationship Specialty Start Date End Date Will Brannon MD [address] [facility] [place] [address] PCP - General Family Practice 02/10/15 [facility] Dr Boyer 02/22/[address] [facility] [address] Faria 02/22/19 Signalling And Communications Engineer Relationship Specialty Start Date End Date Will Brannon MD [address] [place] [address] PCP - General Family Practice 02/10/15 [facility] Boyer 02/22/[address] [facility] [address] Faria 02/22/19 Signalling And Communications Engineer Relationship Specialty Start Date End Date Will Brannon MD [address] [place] [address] PCP - General Family Practice 02/10/15 [facility] Dr Boyer 02/22/[address] [facility] [address] Faria 02/22/19 Signalling And Communications Engineer Relationship Specialty Start Date End Date Will Brannon MD [address] [place] [address] PCP - General Family Practice 02/10/15 [facility] Dr Boyer 02/22/[address] [facility] [address] Faria 02/22/19 Signalling And Communications Engineer Relationship Specialty Start Date End Date Will Brannon MD [address] [place] [address] PCP - General Family Practice 02/10/15 [facility] Dr Boyer 02/22/[address] [facility] [address] Faria 02/22/19 Signalling And Communications Engineer Relationship Specialty Start Date End Date Will Brannon MD [address] [facility] [place] [address] PCP - General Family Practice 02/10/15 [facility] Dr Boyer 02/22/[address] [facility] [address] Faria 02/22/19 Signalling [employer] Communications Engineer Relationship Specialty Start Date End Date Will Brannon MD [address] [place] [address] PCP - General Family Practice 02/10/15 [facility] [address] Boyer 02/22/[address] [facility] [address] Faria 02/22/19 Signalling And Communications Engineer Relationship Specialty Start Date End Date Will Brannon MD [address] [place] [address] PCP - General Family Practice 02/10/15 [facility] Dr Boyer 02/22/[address] [facility] [address] Faria 02/22/19 Signalling And Communications Engineer Relationship Specialty Start Date End Date Will Brannon MD [address] [place] [address] PCP - General Family Practice 02/10/15 [facility] Dr Boyer 02/22/[address] [facility] [address] Faria 02/22/19 Signalling And Communications Engineer Relationship Specialty Start Date End Date Will Brannon MD [address] [place] [address] PCP - General Family Practice 02/10/15 [facility] Dr Boyer 02/22/[address] [facility] [address] Faria 02/22/19 Signalling And Communications Engineer Relationship Specialty Start Date End Date Will Brannon MD [address] [facility] [place] [address] PCP - General Family Practice 02/10/15 [facility] Dr Boyer 02/22/[address] [facility] [address] Faria 02/22/19 Signalling And Communications Engineer Relationship Specialty Start Date End Date Will Brannon MD [address] [place] [address] PCP - General Family Practice 02/10/15 [facility] Boyer 02/22/[address] [facility] [address] Faria 02/22/19 Signalling And Communications Engineer Relationship Specialty Start Date End Date Will Brannon MD [address] [place] [address] PCP - General Family Practice 02/10/15 [facility] Dr Boyer 02/22/[address] [facility] [address] Faria 02/22/19 Signalling And Communications Engineer Relationship Specialty Start Date End Date Will Brannon MD [address] [place] [address] PCP - General Family Practice 02/10/15 [facility] Dr Boyer 02/22/[address] [facility] [address] Faria 02/22/19 Signalling And Communications Engineer Relationship Specialty Start Date End Date Will Brannon MD [address] [place] [address] PCP - General Family Medicine 02/10/15 [facility] Dr Boyer 02/22/[address] [facility] [address] Faria 02/22/19 Signalling And Communications Engineer Relationship Specialty Start Date End Date Will Brannon MD [address] [facility] [place] [address] PCP - General Family Medicine 02/10/15 [facility] Dr Boyer 02/22/[address] [facility] [address] Faria 02/22/19 Signalling And Communications Engineer Relationship Specialty Start Date End Date Will Brannon MD [address] [place] [address] PCP - General Family Medicine 02/10/15 [facility] Dr Boyer 02/22/[address] [facility] [address] Faria 02/22/19 Signalling And Communications Engineer Relationship Specialty Start Date End Date Will Brannon MD [address] [place] [address] PCP - General Family Medicine 02/10/15 [facility] Dr Boyer 02/22/[address] [facility] [address] Faria 02/22/19 Signalling And Communications Engineer Relationship Specialty Start Date End Date Will Brannon MD [address] [place] [address] PCP - General Family Medicine 02/10/15 [facility] Dr Boyer 02/22/[address] [facility] [address] Faria 02/22/19 Signalling And Communications Engineer Relationship Specialty Start Date End Date Will Brannon MD [address] [place] [address] PCP - General Family Medicine 02/10/15 [facility] Dr Byoer 02/22/[address] [facility] [address] Faria 02/22/19 Team Status: Active Member [...] MD Other Provider Active Dr. Will Guo DPM Other Provider Active Team Status: Active Member Role Status Dates Dr. Will Brannon MD Primary Care Provider Active Dr. Alexander Hooks DO Emergency Provider Active Dr. Brittani Panda MD Admit Provider, Other Provider A ctive Dr. Bev Ngo MD Other Provider Active Dr. Will Guo DPM Other Provider Active Dr. Rigo Encarnacion DO Attending Provider, Other Provid er Active Dr. Quynh Boyer DO Other Provider Active Team Status: Inactive Member Role Status Dates Dr. Will Brannon MD Primary Care Provider Active Dr. Alexander Hooks DO Emergency Provider Active Dr. Brittani Panda MD Admit Provider, Other Provider A ctive Dr. Bev Ngo MD Other Provider Active Dr. Will Guo DPM Other Provider Active Dr. Rigo Encarnacion DO Attending Provider Active Dr. Quynh Tereletsky , DO Other Provider Active Signalling And Communications Engineer Relationship Specialty Start Date End Date Will Brannon MD [address] [facility] [place] [address] PCP - General Family Medicine 02/10/15 [facility] Dr Boyer 02/22/[address] [facility] [address] Faria 02/22/19 Signalling And Communications Engineer Relationship Specialty Start Date End Date Will Brannon MD [address] [place] [address] PCP - General Family Medicine 02/10/15 [facility] Dr Boyer 02/22/[address] [facility] [address] Faria 02/22/19 Signalling And Communications Engineer Relationship Specialty Start Date End Date Will Brannon MD [address] [place] [address] PCP - General Family Medicine 02/10/15 [facility] Dr Boyer 02/22/[address] [facility] [address] Faria 02/22/19 Signalling And Communications Engineer Relationship Specialty Start Date End Date Will Brannon MD [address] [place] [address] PCP - General Family Medicine 02/10/15 [facility] Dr Boyer 02/22/[address] [facility] [address] Faria 02/22/19 Signalling And Communications Engineer Relationship Specialty Start Date End Date Will Brannon MD [address] [place] [address] PCP - General Family Medicine 02/10/15 [facility] Dr Boyer 02/22/[address] [facility] [address] Faria 02/22/19 Team Status: Active Member Role Status Dates Dr. Will Brannon MD Primary Care Provider Active Dr. Rojas Oates MD Attending Provider Active Dr. Brittani Panda MD Referring Provider Active Team Status: Inactive Member Role Status Dates Dr. Will Brannon MD Primary Care Provider Active Keaton Stone MD Emergency Provider Active Signalling And Communications Engineer Relationship Specialty Start Date End Date Will Brannon MD [address] [place] [address] PCP - General Family Medicine 02/10/15 [facility] [address] Boyer 02/22/[address] [facility] [address] Faria 02/22/19 Signalling And Communications Engineer Relationship Specialty Start Date End Date Will Brannon MD [address] [place] [address] PCP - General Family Medicine 02/10/15 [facility] [address] Boyer 02/22/[address] [facility] [address] Faria 02/22/19 Signalling And Communications Engineer Relationship Specialty Start Date End Date Will Brannon MD [address] [place] [address] PCP - General Family Medicine 02/10/15 [facility] [address] Boyer 02/22/[address] [facility] [address] Faria 02/22/19 Signalling And Communications Engineer Relationship Specialty Start Date End Date Will Brannon MD [address] [place] [address] PCP - General Family Medicine 02/10/15 [facility] [address] Boyer 02/22/[address] [facility] [address] Faria 02/22/19 Signalling And Communications Engineer Relationship Specialty Start Date End Date Will Brannon MD [address] [place] [address] PCP - General Family Medicine 02/10/15 [facility] Dr Boyer 02/22/[address] [facility] [address] Faria 02/22/19 Team Status: Inactive Member [...] Dr. Taya Wong MD Emergency Provider Active Signalling And Communications Engineer Relationship Specialty Start Date End Date Will Brannon MD [address] [place] [address] PCP - General Family Medicine 02/10/15 [facility] Dr Boyer 02/22/[address] [facility] [address] Faria 02/22/19 Signalling And Communications Engineer Relationship Specialty Start Date End Date Will Brannon MD [address] [place] [address] PCP - General Family Medicine 02/10/15 [facility] Dr Boyer 02/22/[address] [facility] [address] Faria 02/22/19 Signalling And Communications Engineer Relationship Specialty Start Date End Date Will Brannon MD [address] [place] [address] PCP - General Family Medicine 02/10/15 [facility] [address] Boyer 02/22/[address] [facility] [address] Faria 02/22/19 Signalling And Communications Engineer Relationship Specialty Start Date End Date Will Brannon MD [address] [place] [address] PCP - General Family Medicine 02/10/15 [facility] [place] [facility] Boyer 02/22/[address] [facility] [address] Faria 02/22/19 Team Status: Inactive Member [...] Dr. Dre Deal MD Emergency Provider Active Signalling And Communications Engineer Relationship Specialty Start Date End Date Will Brannon MD [address] [place] [address] PCP - General Family Medicine 02/10/15 [facility] [address] Boyer 02/22/[address] [facility] [address] Faria 02/22/19 Team Status: Inactive Member Role Status Dates Dr. Will Brannon MD Primary Care Provider Active Dr. Dre Deal MD Attending Provider, Emergency Provi karely Active Team Status: Inactive Member Role Status Dates Dr. Will Brannon MD Primary Care Provider Active Dr. Bev Ngo MD Attending Provider, [facility] Provider Active Signalling And Communications Engineer Relationship Specialty Start Date End Date Will Brannon MD [address] [place] [address] PCP - General Family Medicine 02/10/15 [facility] [place] [facility] Boyer 02/22/[address] [facility] [address] Faria 02/22/19 Signalling And Communications Engineer Relationship Specialty Start Date End Date Will Brannon MD [address] [place] [address] PCP - General Family Medicine 02/10/15 Katie Vegas, geodetic engineer Malter Operator Internal Medicine 12/27/22 01/26/23 [facility] [address] Boyer 02/22/[address] [facility] [address] Faria 02/22/19 Signalling And Communications Engineer Relationship Specialty Start Date End Date Will Brannon MD [address] [place], [place] [address] PCP - General Family Medicine 02/10/15 Katie Vegas RN Primary Care Malter Operator Internal Medicine 12/27/22 01/26/23 [facility] [address] Boyer 02/22/[address] [facility] [address] Faria 02/22/19 Team Status: Inactive Member Role Status Dates Dr. Will Brannon MD Primary Care Provider Active Dr. Rigo Espinal DO Emergency Provider Active Signalling And Communications Engineer Relationship Specialty Start Date End Date Will Brannon MD [address] [place], [place] [address] PCP - General Family Medicine 02/10/15 [facility] [address] Boyer 02/22/[address] [facility] [address] Faria 02/22/19 Signalling And Communications Engineer Relationship Specialty Start Date End Date Will Brannon MD [address], [place] [id number] PCP - General Family Medicine 02/10/15 [facility] [address] Boyer 02/22/[address] [facility] [address] Faria 02/22/19 Signalling And Communications Engineer Relationship Specialty Start Date End Date Will Brannon MD [address] [place], [place] [id number] PCP - General Family Medicine 02/10/15 [facility] Dr Boyer 02/22/[address] [facility] [address] Faria 02/22/19 Signalling And Communications Engineer Relationship Specialty Start Date End Date Will Brannon MD [address] [place], [place] [address] PCP - General Family Medicine 02/10/15 [facility] Dr Boyer 02/22/[address] [facility] [address] Faria 02/22/19 Signalling And Communications Engineer Relationship Specialty Start Date End Date Will Brannon MD [address] [place], [place] [id number] PCP - General Family Medicine 02/10/15 [facility] [address] Boyer 02/22/[address] [facility] [address] Faria 02/22/19 Team Status: Inactive Member Role Status Dates Dr. Will Brannon MD Primary Care Provider Active Dr. Rigo Espinal DO Attending Provider, Emergency P maggie Active Team Status: Inactive Member Role Status Dates Dr. Will Brannon MD Primary Care Provider Active Dr. Xavier Josue MD Attending Provider Active Team Status: Inactive Member Role Status Dates Dr. Will Brannon MD Primary Care Provider Active Dr. Kevin Barcenas MD Emergency Provider Active Signalling And Communications Engineer Relationship Specialty Start Date End Date Will Brannon MD [address] [place], [place] [id number] PCP - General Family Medicine 02/10/15 [facility] [address] Boyer 02/22/[address] [facility] [address] Faria 02/22/19 Signalling And Communications Engineer Relationship Specialty Start Date End Date Will Brannon MD [address] [place] [address] PCP - General Family Medicine 02/10/15 [facility] Dr Boyer 02/22/[address] [facility] [address] Faria 02/22/19 Signalling And Communications Engineer Relationship Specialty Start Date End Date Will Brannon MD [address] [place] [address] PCP - General Family Medicine 02/10/15 [facility] Boyer 02/22/[address] [facility] [address] Faria 02/22/19 Signalling And Communications Engineer Relationship Specialty Start Date End Date Will Brannon MD [address] [place] [address] PCP - General Family Medicine 02/10/15 [facility] Dr Boyer 02/22/[address] [facility] [address] Faria 02/22/19 Signalling And Communications Engineer Relationship Specialty Start Date End Date Will Brannon MD [address] [place] [address] PCP - General Family Medicine 02/10/15 [facility] Dr Boyer 02/22/[address] [facility] [address] Faria 02/22/19 Signalling And Communications Engineer Relationship Specialty Start Date End Date Will Brannon MD [address] [place] [address] PCP - General Family Medicine 02/10/15 [facility] Boyer 02/22/[address] [facility] [address] Faria 02/22/19 Team Status: Inactive Member Role Status Dates Dr. Will Brannon MD Primary Care Provider Active SURVEYOR'S ASSISTANT. Fifi Browne Attending Provider, Referring Provid er Active Team Status: Inactive Member Role Status Dates Dr. Will Brannon MD Primary Care Provider Active Dr. Xavier Sanderson DO Emergency Provider Active Signalling And Communications Engineer Relationship Specialty Start Date End Date Will Brannon MD [address] [place] [address] PCP - General Family Medicine 02/10/15 [facility] Dr Boyer 02/22/[address] [facility] [address] Faria 02/22/19 Signalling And Communications Engineer Relationship Specialty Start Date End Date Will Brannon MD [address] [place] [address] PCP - General Family Medicine 02/10/15 [facility] Dr Boyer 02/22/[address] [facility] [address] Faria 02/22/19 Signalling And Communications Engineer Relationship Specialty Start Date End Date Will Brannon MD [address] [place] [address] PCP - General Family Medicine 02/10/15 [facility] Dr Boyer 02/22/[address] [facility] [address] Faria 02/22/19 Signalling And Communications Engineer Relationship Specialty Start Date End Date Will Brannon MD [address] [place] [address] PCP - General Family Medicine 02/10/15 [facility] Dr Boyer 02/22/[address] [facility] [address] Faria 02/22/19 Signalling And Communications Engineer Relationship Specialty Start Date End Date Will Brannon MD [address] [place] [address] PCP - General Family Medicine 02/10/15 [facility] Dr Boyer 02/22/[address] [facility] [address] Faria 02/22/19 Signalling And Communications Engineer Relationship Specialty Start Date End Date Will Brannon MD [address] [place] [address] PCP - General Family Medicine 02/10/15 [facility] [address] Boyer 02/22/[address] [facility] [address] Faria 02/22/19 Signalling And Communications Engineer Relationship Specialty Start Date End Date Will Brannon MD [address] [place], [place] [address] PCP - General Family Medicine 02/10/15 [facility] [address] Boyer 02/22/[address] [facility] [address] Faria 02/22/19 Team Status: Inactive Member Role Status Dates Dr. Will Brannon MD Primary Care Provider Active Dr. Xavier Sanderson DO Attending Provider, Trinh serrano Active Signalling And Communications Engineer Relationship Specialty Start Date End Date Will Brannon MD [address] [place], [place] [address] [phone] PCP - General Family Medicine 02/10/15 [facility] Boyer 02/22/[address] [facility] [address] Faria 02/22/19 Signalling And Communications Engineer Relationship Specialty Start Date End Date Will Brannon MD [address] [facility] [place] [address] PCP - General Family Medicine 02/10/15 [facility] Dr Boyer 02/22/[address] [facility] [address] Faria 02/22/19 Signalling And Communications Engineer Relationship Specialty Start Date End Date Will Brannon MD [address] [place] [address] PCP - General Family Medicine 02/10/15 [facility] Boyer 02/22/[address] [facility] [address] Faria 02/22/19 Signalling And Communications Engineer Relationship Specialty Start Date End Date Will Brannon MD [address] [place] [address] PCP - General Family Medicine 02/10/15 [facility] Dr Boyer 02/22/[address] [facility] [address] Faria 02/22/19 Signalling And Communications Engineer Relationship Specialty Start Date End Date Will Brannon MD [address] [place] [address] PCP - General Family Medicine 02/10/15 [facility] Dr Boyer 02/22/[address] [facility] [address] Faria 02/22/19 Signalling And Communications Engineer Relationship Specialty Start Date End Date Will Brannon MD [address] [place] [address] PCP - General Family Medicine 02/10/15 [facility] Dr Boyer 02/22/[address] [facility] [address] Faria 02/22/19 Signalling And Communications Engineer Relationship Specialty Start Date End Date Will Brannon MD [address] [facility] [place] [address] PCP - General Family Medicine 02/10/15 [facility] Dr Boyer 02/22/[address] [facility] [address] Faria 02/22/19 Signalling And Communications Engineer Relationship Specialty Start Date End Date Will Brannon MD [address] [place] [address] PCP - General Family Medicine 02/10/15 [facility] Dr Boyer 02/22/[address] [facility] [address] Faria 02/22/19 Signalling And Communications Engineer Relationship Specialty Start Date End Date Will Brannon MD [address] [place] [address] PCP - General Family Medicine 02/10/15 [facility] Dr Boyer 02/22/[address] [facility] [address] Faria 02/22/19 Signalling And Communications Engineer Relationship Specialty Start Date End Date Will Brannon MD [address] [place] [address] PCP - General Family Medicine 02/10/15 [facility] Dr Boyer 02/22/[address] [facility] [address] Faria 02/22/19 Signalling And Communications Engineer Relationship Specialty Start Date End Date Will Brannon MD [address] [place] [address] PCP - General Family Medicine 02/10/15 [facility] Dr Boyer 02/22/[address] [facility] [address] Faria 02/22/19 Signalling And Communications Engineer Relationship Specialty Start Date End Date Will Brannon MD [address] [facility] [place] [address] PCP - General Family Medicine 02/10/15 [facility] Dr Boyer 02/22/[address] [facility] [address] Faria 02/22/19 Signalling And Communications Engineer Relationship Specialty Start Date End Date Will Brannon MD [address] [facility] [place] [address] PCP - General Family Medicine 02/10/15 [facility] Dr Boyer 02/22/[address] [facility] [address] Faria 02/22/19 Signalling And Communications Engineer Relationship Specialty Start Date End Date Will Brannon MD [address] [facility] [place] [address] PCP - General Family Medicine 02/10/15 [facility] Dr Boyer 02/22/[address] [facility] [address] Faria 02/22/19 Signalling And Communications Engineer Relationship Specialty Start Date End Date Will Brannon MD [address] [facility] [place] [address] PCP - General Family Medicine 02/10/15 [facility] Dr Boyer 02/22/[address] [facility] [address] Faria 02/22/19 Signalling And Communications Engineer Relationship Specialty Start Date End Date Will Brannon MD [address] [place] [address] PCP - General Family Medicine 02/10/15 [facility] Dr Boyer 02/22/[address] [facility] [address] Faria 02/22/19 Signalling And Communications Engineer Relationship Specialty Start Date End Date Will Brannon MD [address] [place] [address] PCP - General Family Medicine 02/10/15 [facility] Boyer 02/22/[address] [facility] [address] Faria 02/22/19 Signalling And Communications Engineer Relationship Specialty Start Date End Date Will Brannon MD [address] [place] [address] PCP - General Family Medicine 02/10/15 [facility] Dr Boyer 02/22/[address] [facility] [address] Faria 02/22/19 Signalling And Communications Engineer Relationship Specialty Start Date End Date Will Brannon MD [address] [place] [address] PCP - General Family Medicine 02/10/15 [facility] Dr Boyer 02/22/[address] [facility] [address] Faria 02/22/19 Signalling And Communications Engineer Relationship Specialty Start Date End Date Will Brannon MD [address] [place] [address] PCP - General Family Medicine 02/10/15 [facility] Dr Boyer 02/22/[address] [facility] [address] Faria 02/22/19 Signalling And Communications Engineer Relationship Specialty Start Date End Date Will Brannon MD [address] [facility] [place] [address] PCP - General Family Medicine 02/10/15 [facility] Dr Boyer 02/22/[address] [facility] [address] Faria 02/22/19 Signalling And Communications Engineer Relationship Specialty Start Date End Date Will Brannon MD [address] [place] [address] PCP - General Family Medicine 02/10/15 [facility] Dr Boyer 02/22/[address] [facility] [address] Faria 02/22/19 Signalling And Communications Engineer Relationship Specialty Start Date End Date Will Brannon MD [address] [place] [address] PCP - General Family Medicine 02/10/15 [facility] Dr Boyer 02/22/[address] [facility] [address] Faria 02/22/19 Signalling And Communications Engineer Relationship Specialty Start Date End Date Will Brannon MD [address] [place] [address] PCP - General Family Medicine 02/10/15 [facility] Dr Boyer 02/22/[address] [facility] [address] Faria 02/22/19 Signalling And Communications Engineer Relationship Specialty Start Date End Date Will Brannon MD [address] [place] [address] PCP - General Family Medicine 02/10/15 [facility] Dr Boyer 02/22/[address] [facility] [address] Faria 02/22/19 Signalling And Communications Engineer Relationship Specialty Start Date End Date Will Brannon MD [address] [facility] [place] [address] PCP - General Family Medicine 02/10/15 [facility] Dr Boyer 02/22/[address] [facility] [address] Faria 02/22/19 Signalling And Communications Engineer Relationship Specialty Start Date End Date Will Brannon MD [address] [facility] [place] [address] PCP - General Family Medicine 02/10/15 [facility] Dr Boyer 02/22/[address] [facility] [address] Faria 02/22/19 Signalling And Communications Engineer Relationship Specialty Start Date End Date Will Brannon MD [address] [facility] [place] [address] PCP - General Family Medicine 02/10/15 [facility] Dr Boyer 02/22/[address] [facility] [address] Faria 02/22/19 Signalling And Communications Engineer Relationship Specialty Start Date End Date Will Brannon MD [address] [facility] [place] [address] PCP - General Family Medicine 02/10/15 [facility] Dr Boyer 02/22/[address] [facility] [address] Faria 02/22/19 Signalling And Communications Engineer Relationship Specialty Start Date End Date Will Brannon MD [address] [place] [address] PCP - General Family Medicine 02/10/15 [facility] [address] Boyer 02/22/[address] [facility] [address] Faria 02/22/19 Signalling And Communications Engineer Relationship Specialty Start Date End Date Will Brannon MD [address] [place] [address] PCP - General Family Medicine 02/10/15 [facility] [address] Boyer 02/22/[address] [facility] [address] Faria 02/22/19 Signalling And Communications Engineer Relationship Specialty Start Date End Date Will Brannon MD [address] [place] [address] PCP - General Family Medicine 02/10/15 Devin George APRN.DIRECTOR LABOR [employer]ARDS [address] [place] [address] [facility] 05/04/24 Netta Higgins PA-C [address] [place] [address] [facility] 05/04/[address] [facility] [address] Boyer 02/22/[address] [facility] [address] Faria 02/22/19 Signalling And Communications Engineer Relationship Specialty Start Date End Date Will Brannon MD [address] [place] [address] PCP - General Family Medicine 02/10/15 Devin George APRN.DIRECTOR [employer] [address] [place] [address] [facility] 05/04/24 Netta Higgins PA-C [address] [place] [address] [facility] 05/04/[address] [facility] [address] Boyer 02/22/[address] [facility] [address] Faria 02/22/19 Signalling And Communications Engineer Relationship Specialty Start Date End Date Will Brannon MD [address] [place] [address] PCP - General Family Medicine 02/10/15 Devin George APRN.DIRECTOR [employer]ARDS [address] [place] [address] [facility] Family [facility] 05/04/24 Netta Higgins PA-C [address] [place] [address] Shot [facility] Family [facility] 05/04/[address] [facility] [address] Boyer 02/22/19 [facility] wound center Dr Faria 02/22/19 Signalling And Communications Engineer Relationship Specialty Start Date End Date Will Brannon MD [address] [place] [address] PCP - General Family Medicine 02/10/15 Devin George APRN.DIRECTOR [employer] [address] [place] [address] [facility] 05/04/24 Netta Higgins PA-C [address] [place] [address] [facility] 05/04/24 [facility] Dr Boyer 02/22/19 [facility] wound [place] Dr Faria 02/22/19 Signalling And Communications Engineer Relationship Specialty Start Date End Date Will Brannon MD [address] [place] [address] PCP - General Family Medicine 02/10/15 Devin George APRN.DIRECTOR [employer] [address] [place] [address] [employer] Family [facility] 05/04/24 Netta Higgins PA-C [address] [place] [address] [facility] 05/04/[address] [facility] [address] Byoer 02/22/19 [facility] wound [place] Dr Faria 02/22/19 Signalling And Communications Engineer Relationship Specialty Start Date End Date Will Brannon MD [address] [place] [address] PCP - General Family Medicine 02/10/15 Devin George APRN.DIRECTOR [employer] [address] [place] [address] [facility] 05/04/24 Netta Higgins PA-C [address] [place] [address] [facility] 05/04/24 [facility] Dr Boyer 02/22/[address] [facility] [address] Faria 02/22/19 Signalling And Communications Engineer Relationship Specialty Start Date End Date Will Brannon MD [address] [place] [address] PCP - General Family Medicine 02/10/15 Devin George, SUSAN.DIRECTOR LABOR [employer]ANDARDS [address] [place] [address] [facility] Family [facility] 05/04/24 Netta Higgins PA-C [address] [place] [address] [facility] 05/04/24 [facility] [address] Boyer 02/22/[address] [facility] [address] Faria 02/22/19 Signalling And Communications Engineer Relationship Specialty Start Date End Date Will Brannon MD [address] [place] [address] PCP - General Family Medicine 02/10/15 Devin George, SLIP MAKER.DIRECTOR [employer]DS [address] [place] [address] [facility] 05/04/24 Netta Higgins PA-C [address] [place] [address] [facility] 05/04/[address] [facility] [address] Boyer 02/22/[address] [facility] [address] Faria 02/22/19 Team Status: Active Member [...] Attending Provider Active Start: August 11, 2024 Signalling And Communications Engineer Relationship Specialty Start Date End Date Will Brannon MD [address] [place] [address] PCP - General Family Medicine 09/02/24 Devin George APRN.CNP [address] [place] [address] [id number] [facility] 05/04/24 Netta Higgins PA-C [address] [place] [address] [id number] [facility] 05/04/[address] [facility] [address] Boyer 02/22/[address] [facility] [address] Faria 02/22/19 Signalling And Communications Engineer Relationship Specialty Start Date End Date Will Brannon MD [address] [place] [address] PCP - General Family Medicine 09/02/24 Devin George APRN.DIRECTOR [employer] [address] [place] [address] [employer] [facility] [employer] Family [facility] 05/04/24 Netta Higgins PA-C [address] [place] [address] [facility] 05/04/[address] [facility] [address] Boyer 02/22/[address] [facility] [address] Faria 02/22/19 Signalling And Communications Engineer Relationship Specialty Start Date End Date Will Brannon MD [address] [place] [address] PCP - General Family Medicine 09/02/24 Devin George APRN.DIRECTOR LABOR STANDARDS [facility] [place] [address] [facility] 05/04/24 Netta Higgins PA-C [facility] [place] [address] [facility] 05/04/[address] [facility] [address] Boyer 02/22/19 [facility] wound [place] Dr Faria 02/22/19 Signalling And Communications Engineer Relationship Specialty Start Date End Date Will Brannon MD [address] [place] [address] PCP - General Family Medicine 09/02/24 Devin George APRN.DIRECTOR [employer] [address] [place] [address] [facility] 10/28/24 Netta Higgins PA-C [address] [place] [address] Shot Hole Shooter [facility] 10/28/[address] [facility] [address] Boyer 02/22/[address] [facility] [address] Faria 02/22/19 Signalling And Communications Engineer Relationship Specialty Start Date End Date Will Brannon MD [address] [place] [address] PCP - General Family Medicine 09/02/24 Devin George APRN.DIRECTOR [employer] [address] [place] [address] [facility] 10/28/24 Netta Higgins PA-C [facility] [place] [address] [facility] 10/28/[address] [facility] [address] Boyer 02/22/[address] [facility] [address] Faria 02/22/19 Team Status: Inactive Member Role Status Dates Dr. Will Brannon MD Primary Care Provider Active Start: November 19, 2024 End: November 20, 2024 Dr. Rigo Espinal DO Emergency Provider Active Start: November 19, 2024 End: November 20, 2024 Signalling And Communications Engineer Relationship Specialty Start Date End Date Will Brannon MD [address] [place] [address] PCP - General Family Medicine 09/02/24 Devin George APRN.DIRECTOR [employer] [address] [place] [address] [facility] 10/28/24 Netta Higgins PA-C [address] [place] [address] [facility] 10/28/[address] [facility] [address] Boyer 02/22/[address] [facility] [address] Faria 02/22/19 Signalling And Communications Engineer Relationship Specialty Start Date End Date Will Brannon MD [address] [place] [address] PCP - General Family Medicine 09/02/24 Devin George APRN.DIRECTOR [employer]ARDS [address] [place] [address] [facility] 10/28/24 Netta Higgins PA-C [facility] [place] [address] [facility] 10/28/[address] [facility] [address] Boyer 02/22/[address] [facility] [address] Faria 02/22/19 Signalling And Communications Engineer Relationship Specialty Start Date End Date Will Brannon MD [address] [place] [address] PCP - General Family Medicine 09/02/24 Devin George APRN.DIRECTOR [employer] [address] [place] [address] [facility] 10/28/24 Netta Higgins PA-C [address] [place] [address] [facility] 10/28/[address] [facility] [address] Boyer 02/22/[address] [facility] [address] Faria 02/22/19 Signalling And Communications Engineer Relationship Specialty Start Date End Date Will Brannon MD [address] [place] [address] PCP - General Family Medicine 09/02/24 Devin George APRN.DIRECTOR [employer]ARDS [address] [place] [address] [facility] 10/28/24 Netta Higgins PA-C [address] [place] [address] [facility] 10/28/[address] [facility] [address] Boyer 02/22/[address] [facility] [address] Faria 02/22/19 Signalling And Communications Engineer Relationship Specialty Start Date End Date Will Brannon MD [address] [place] [address] PCP - General Family Medicine 09/02/24 Devin George APRN.DIRECTOR [employer]DS [address] [place], [place] [address] [phone] [facility] 10/28/24 Netta Higgins PA-C [address] [place] [address] [facility] 10/28/[address] [facility] [address] Boyer 02/22/19 [facility] wound [place] Dr Faria 02/22/19 Signalling And Communications Engineer Relationship Specialty Start Date End Date Will Brannon MD [address] [place] [address] PCP - General Family Medicine 09/02/24 Devin George APRN.DIRECTOR LABOR [employer]ARDS [facility] [place] [address] [facility] 10/28/24 Netta Higgins PA-C [address] [place] [address] [facility] 10/28/[address] [facility] [address] Boyer 02/22/[address] [facility] [address] Faria 02/22/19 Signalling And Communications Engineer Relationship Specialty Start Date End Date Will Brannon MD [address] [place] [address] PCP - General Family Medicine 09/02/24 Devin George APRN.DIRECTOR [employer]DS [address] [place], [place] 0[address] [phone] [facility] 10/28/24 Netta Higgins PA-C [address] [place], [place] 301[address] [phone] [facility] 10/28/24 [facility] Eye [facility] Dr Boyer 02/22/19 [facility] wound center Dr Faria 02/22/19 Team Status: Active Member Role/Relationship Status Dates Dr. Will Brannon MD Primary care physician Active Team Status: Inactive Member Role/Relationship Status Dates Dr. Will Brannon MD Primary care physician Active Start: March 08, 2025 End: March 09, 2025 Dr. Andre Sue , Attending physician Active Start: March 08, 2025 End: March 09, 2025 Dr. Andre Sue , Emergency Departme nt Physician Active Start: March 08, 2025 End: March 09, 2025 Team Status: Inactive Member Role/Relationship Status Dates Dr. iWll Brannon MD Primary care physician Active Start: March 09, 2025 End: March 09, 2025 Dr. Alexander Hooks DO Attending physician Active Start: March 09, 2025 End: March 09, 2025 Dr. Alexander Hooks , Emergency Departme nt Physician Active Start: March 09, 2025 End: March 09, 2025 Goals (unrecognized section and content) Goals may be documented in a n alternate section Care Team (unrecognized sect ion and content) Care Team Personnel Name: WILL BRANNON MD Member Role: Primary Care Physician Address: Address: [address] [place] [address] Care Team Related Persons Name: MEHDI BAILON Care Team Personnel Name: WILL BRANNON MD Member Role: Primary Care Physician Address: Address: [address] [place] [address] Name: CIERRA NAQVI MD Position: Resident Member Role: Resident Address: Address: [address] [place] [address] [place] [address]- Name: FALGUNI BRICE MD Position: ED Physician Member Role: ED Physician Address: Address: [address] [place] [address] [facility] [address]- Name: Blessing Brice RN Position: AO RN Member Role: RN Care Team Related Persons Name: MEHDI BAILON Care Team Personnel Name: WILL BRANNON MD Member Role: Primary Care Physician Address: Address: [address] [place] [address]- Name: BRADY DOMINGUEZ MD Position: ED Physician Member Role: ED Physician Address: Address: [facility] [address] [place], [place] [address] Care Team Related Persons Name: MEHDI BAILON Care Team Personnel Name: WILL BRANNON MD Member Role: Primary Care Physician Address: Address: [address] [place] [address] Name: DAMIR BLUNT DO Position: ED Physician Member Role: ED Physician Address: Address: [facility] [address] [place] [id number] Care Team Related Persons Name: MEHDI BAILON Care Team Personnel Name: WILL BRANNON MD Member Role: Primary Care Physician Address: Address: [address] [place] [address] Name: DAMIR BLUNT DO Position: ED Physician Member Role: ED Physician Address: Address: [address] Care Team Related Persons Name: MEHDI BAILON [...] BE BASED ON THE PRIMARY CLINICAL RECORDS. [facility] [employer] provides no warranty or guarantee of the accuracy or completeness of information in this document.
[2025-05-24 20:40] LABS: Anion Gap 13 (7-18); BUN 8 mg/dL (4-19); BUN/Creat Ratio 10.3 RATIO (10-20); Calcium,Total 9.6 mg/dL (7.6-11.0); Carbon Dioxide 20.8 mmol/L (20.0-29.0); Chloride 101 mmol/L (96-106); Glucose 135 mg/dL (70-99); Potassium 4.0 mmol/L (3.5-5.1)
[2025-05-24 20:43] LABS: Color, Urine Yellow (Yellow); Glucose, Dipstick Normal (Normal); Ketone-Dipstick 15 mg/dl (Negative); Leukocyte Esterase-Dipstick 500 /ul (Negative); Nitrite-Dipstick Positive (Negative); Occult Blood-Urine 25 /ul (Negative); Protein-Dipstick 100 mg/dl (Negative); Specific Gravity, Urine 1.010 (1.002-1.030); Urine Bilirubin Dipstick Negative (Negative)
[2025-05-24 20:53] LABS: Red Blood Cells-Urine 5-10 SEEN /hpf (0-5); Squamous Epithelial Cells - UA 10-25 SEEN /hpf (5-10)
[2025-05-24 20:54] LABS: Mucous, Urine 2+ /hpf (<or=2+)
[2025-05-24 20:56] LABS: Differential Comment SCANNED
[2025-05-24 21:00] VITALS: BP 110/69; PULSE 79; RESP 15; TEMP 36.8; O2SAT 98; BMI 40.4
[2025-05-24 22:00] VITALS: BP 102/70; PULSE 78; RESP 16; TEMP 36.8; O2SAT 100
[2025-05-24 23:00] VITALS: BP 105/54; PULSE 80; RESP 16; TEMP 37; O2SAT 99
[2025-05-25] VITALS: BP 92/63; PULSE 72; RESP 16; TEMP 37; O2SAT 100
[2025-05-25 00:33] VITALS: BP 110/58; PULSE 71; RESP 18; TEMP 37; O2SAT 100
== END 2025-05-25 00:44 | disposition home or self-care (01) ==
PROVIDERS: Emergency Provider Emergency Medicine; PCP Family Medicine; Visit Provider Emergency Medicine
DX: N10 Acute pyelonephritis (principal); E11.22 Type 2 diabetes mellitus with diabetic chronic kidney disease; E11.42 Type 2 diabetes mellitus with diabetic polyneuropathy; Z79.4 Long term (current) use of insulin; E78.5 Hyperlipidemia, unspecified; N18.9 Chronic kidney disease, unspecified; I12.9 Hypertensive chronic kidney disease with stage 1 through stage 4 chronic kidney disease, or unspecified chronic kidney disease; D72.829 Elevated white blood cell count, unspecified; Z90.49 Acquired absence of other specified parts of digestive tract; Z98.84 Bariatric surgery status
CPT/HCPCS: 74176; 80048; 81001; 85025; 96365; 96375; 99285; A4216; J0744; J2405